=== PATIENT | female | born 1955 | race Caucasian/White ===

== ENCOUNTER 2024-01-05 22:47 | Emergency (ER) | payer MEDICARE, MEDICAID, SELFPAY ==
[2024-01-05 22:57] VITALS: BP 153/97; PULSE 73; TEMP 36.8; O2SAT 95; BMI 31.3
--- NOTE | 2024-01-05 23:29 | XR_ITS ---
The [address] [address] Patient Name: TAYE MARCOS MRN: [id number] date: 1955 Sex: F Assigned Patient Location: ER Current Patient Location: ER Accession/Order Number: [id number] Exam Date: 01/05/2024 23:32 Report Date: 01/05/2024 23:54 At the request of: JAZMIN KEMP Procedure: XR foot RT min 3V EXAM: XR foot RT min 3V HISTORY: The patient is a 68-year-old female, Rt foot pain and swelling COMPARISON: None. FINDINGS: The right foot is radiographically negative with no evidence of fracture, dislocation, joint space narrowing, osteophytes, or other osseous or articular abnormalities. XR/XR foot RT min 3V IMPRESSION: Negative. Electronically authenticated by: SHONNA FONTAINE Date: 01/05/2024 23:54
--- NOTE | 2024-01-05 23:29 | ED_ITS ---
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 Martinez for presents for evaluation of right foot redness warmth and swelling. The patient's daughter states she was just away for 4 days with her boyfriend and when she came home she took her shoes off and she noticed that her mother's foot looked red and swollen. She lives at the bottom of her foot and saw that there is an area where there there appears to be a broken area of skin adjacent to the corn that she has been treated for in the past. She has not had any fever. She has no pain in this extremity but does have neuropathy. She has mild erythema of the foot and toes with no lymphangitic streaking onto the calf. She is on Eliquis. She denies any chest pain or shortness of breath. She was in a hot tub over the weekend which is possibly where she scraped the bottom of her foot. She denies any injury. Related Data Allergies Allergy/AdvReac Type Severity Reaction Status Date / Time Sulfa (Sulfonamide Allergy Mild Vomiting Verified 01/05/24 23:03 Antibiotics) Opioid HPI Opioid Management Most Recent Pain and Opioid Data: No Data to Display Review of Systems ROS Status of ROS 10 or more systems reviewed and unremark able except as noted in history and below PFSH PFSH Social History Little interest or pleasure in doing things: not at all Feeling down, depressed, or hopeless: not at all Exam Narrative Exam Narrative: Vital signs and Nursing Notes reviewed: Patient is afebrile with a normal pulse, blood pressure is elevated at 153/97, she is not hypoxic with pulse ox of 95% on room air General: Awake, alert, oriented, no acute distress, lying comfortably on the stretcher HEENT: Normocephalic atraumatic, mucous membranes are moist and pink, eyes are clear, normal conjunctiva, vision is grossly intact, posterior pharynx is normal in appearance. Neck: Supple, no meningeal signs, no anterior or posterior cervical lymphadenopathy Chest: Lungs are clear to auscultation with good air entry, there is no wheezing rhonchi or rales appreciated no accessory muscle use, patient is speaking in complete sentences-no chest wall tenderness to palpation CVS: Regular rate and rhythm S1-S2, no murmurs rubs or gallops, pulses are brisk and equal bilaterally ABD: Soft, nondistended, nontender, no rebound guarding or rigidity, bowel sounds are normal, no pulsatile masses appreciated Extremities: There is mild erythema and warmth to the right foot. On the plantar aspect of the right foot is a corn at the base of the first metatarsal and adjacent to this is an open area of skin which appears to have been torn with some local ecchymosis. Feet are warm, poorly sensate bilaterally. There is a healed scar on the left first metatarsal. Pulses are brisk and equal bilaterally. There is no lymphangitic streaking. Skin: Normal in appearance without rash,pallor, petechiae or purpura Neuro: No focal deficits Constitutional Vital Signs, click to edit/add: Last Vital Signs Temp 98.3 F 01/05/24 22:57 Pulse 73 01/05/24 22:57 Resp 16 01/05/24 22:57 BP 153/97 H 01/05/24 22:57 Pulse Ox 95 01/05/24 22:57 O2 Del Method Room Air 01/05/24 22:57 Course Vital Signs Vital signs: Vital Signs Temperature 98.3 F 01/05/24 22:57 Pulse Rate 73 01/05/24 22:57 Respiratory Rate 16 01/05/24 22:57 Blood Pressure 153/97 H 01/05/24 22:57 Pulse Oximetry 95 01/05/24 22:57 Oxygen Delivery Method Room Air 01/05/24 22:57 Temperature 98.3 F 01/05/24 22:57 Pulse Rate 73 01/05/24 22:57 Respiratory Rate 16 01/05/24 22:57 Blood Pressure 153/97 H 01/05/24 22:57 Pulse Oximetry 95 01/05/24 22:57 Oxygen Delivery Method Room Air 01/05/24 22:57 MDM - Extremity Injury (Lower) MDM Narrative Medical decision making narrative: This 68-year-old female with a history of diabetic neuropathy and a chronic corn on the base of her right first metatarsal is brought to the emergency department by her daughter for evaluation of redness and swelling in the extremity after the patient was gone for 4 days on a trip with her boyfriend. She has a small area of open skin adjacent to the corn on the base of her right first metatarsal and some mild redness of her foot and toes. The patient denies any complaint of pain due to her neuropathy. She denies any injury. Her pulses are brisk and equal. She does have some mild swelling of the right calf compared to the left. She is on Eliquis. Due to her risk of diabetic foot infection an IV was placed and she was given a dose of IV Unasyn. Routine labs are ordered. She has a normal white count and hemoglobin. Her sed rate is elevated at 41. Lactic acid and CRP are normal. Electrolytes are normal. D-dimer is normal. X-ray of the foot is negative for acute findings. She will be discharged home with a prescription for Augmentin with recommendation for close follow-up with Dr. 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 Medical Records Medical records narrative: The [place] [id number] XRay Report Signed Patient: TAYE MARCOS MR#: [id number] : 1955 Acct:[id number] Age/Sex: 68 / F ADM Date: 01/05/24 Loc: ER Attending Dr: Ordering Physician: Carmelita Mary Date of Service: 01/05/24 Procedure(s): XR foot RT min 3V Accession Number(s): [id number] cc: LINWOOD IRWIN ; Carmelita Mary~ The [address] [address] Patient Name: TAYE MARCOS MRN: [id number] date: 1955 Sex: F Assigned Patient Location: ER Current Patient Location: ER Accession/Order Number: [id number] Exam Date: 01/05/2024 23:32 Report Date: 01/05/2024 23:54 At the request of: CARMELITA MARY Procedure: XR foot RT min 3V EXAM: XR foot RT min 3V HISTORY: The patient is a 68-year-old female, Rt foot pain and swelling COMPARISON: None. FINDINGS: The right foot is radiographically negative with no evidence of fracture, dislocation, joint space narrowing, osteophytes, or other osseous or articular abnormalities. XR/XR foot RT min 3V IMPRESSION: Negative. Electronically authenticated by: SHONNA FONTAINE Date: 01/05/2024 23:54 Lab Data Attestation: I reviewed the patient's lab results. Discharge Plan Discharge Chief Complaint: Extremity Injury, Lower Clinical Impression: Cellulitis of foot Patient Disposition: Home, Self-Care Time of Disposition Decision: 00:22 Condition: Good Print Language: Guyanese Instructions: Cellulitis (ED) Referrals: Cong Martinez DPM [Physician] - 1 week LINWOOD IRWIN [Primary Care Provider] - 1 week
[2024-01-05 23:49] LABS: Basophils Percent Auto 0.5 % (0.2-2.0); Eosinophils Absolute Auto 0.4 10^3/uL (0.0-0.7); Eosinophils Percent Auto 4.7 % (0.9-7.0); Hematocrit 46.3 % (36.0-48.0); Hemoglobin 14.9 g/dL (12.0-16.0); Immature Granulocytes Abs Auto 0.03 10^3/uL (0.00-0.03); Immature Granulocytes Pct Auto 0.4 % (0.0-0.5); Lymphocytes Absolute Auto 2.1 10^3/uL (1.2-3.8); Lymphocytes Percent Auto 24.9 % (20.5-60.0); Mean Corpuscular HGB Conc 32.2 g/dL (29.9-35.2); Mean Corpuscular Volume 99.4 fL (81.0-99.0); Mean Platelet Volume 11.2 fL (9.5-13.5); Monocytes Absolute Auto 0.7 10^3/uL (0.3-0.8); Monocytes Percent Auto 8.5 % (1.7-12.0); Neutrophils Absolute Auto 5.2 10^3/uL (1.4-6.5); Platelet Count 163 10^3/uL (150-450); Red Blood Count 4.66 10^6/uL (4.20-5.40); White Blood Count 8.5 10^3/uL (4.0-11.0)
[2024-01-05 23:53] LABS: Erythrocyte Sedimentation Rate 41 mm/hr (<=30)
[2024-01-05] MEDS: 0.9 % SODIUM CHLORIDE 500 ML IV (23:56)
[2024-01-05] MEDS: AMPICILLIN SODIUM/SULBACTAM NA 3 GM in 0.9 % SODIUM CHLORIDE 100 ML IV (23:56)
[2024-01-06 00:03] LABS: D Dimer 0.31 mg/L FEU (<=0.59)
[2024-01-06 00:04] LABS: Alanine Aminotransferase 32 U/L (14-59); Albumin Globulin Ratio 0.9; Albumin Level 3.3 g/dL (3.4-5.0); Alkaline Phosphatase 82 U/L (46-116); Anion Gap 9.2; Aspartate Amino Transferase 30 U/L (15-37); BUN Creatinine Ratio 11.3; Bilirubin Total 0.2 mg/dL (0.2-1.0); C Reactive Protein <0.50 mg/dL (<=0.50); Calcium 9.7 mg/dL (8.5-10.1); Carbon Dioxide 27.7 mmol/L (21.0-32.0); Chloride 104 mmol/L (98-107); Estimated GFR (African America >60 (>=60); Estimated GFR (Non-African Ame 57 (>=60); Globulin 3.7 g/dL; Glucose 162 mg/dL (74-106); Potassium 3.9 mmol/L (3.5-5.1); Sodium 137 mmol/L (136-145)
[2024-01-06 00:07] LABS: Lactate/Lactic Acid 1.9 mmol/L (0.4-2.0)
[2024-01-06 00:30] VITALS: BP 143/87; PULSE 57; O2SAT 97
== END 2024-01-06 00:30 | disposition home or self-care (01) ==
PROVIDERS: Emergency Provider Emergency Medicine; Family Provider Family Medicine; PCP Specialist
DX: L03.115 Cellulitis of right lower limb (principal); E11.40 Type 2 diabetes mellitus with diabetic neuropathy, unspecified; Z79.01 Long term (current) use of anticoagulants
CPT/HCPCS: 36415; 73630; 80053; 83605; 85025; 85378; 85652; 86140; 96365; 99284; J0295

== ENCOUNTER 2024-02-07 12:51 | Outpatient (REF) | payer MEDICARE, MEDICAID, SELFPAY ==
--- OUTSIDE RECORDS SUMMARY | 2024-02-07 13:04 | XMS_ITS | CCD ---
Author Organization [facility] Care Team Providers Care Supervisor Cook Room Name Role Phone MATTHEW VOSS MD Unavailable Unavailable UNASSIGNED, DOCTOR Unavailable Unavailable SUKHWINDER, ELOISA Unavailable Unavailable SUKHWINDER, ELOISA Unavailable Unavailable SUKHWINDER, ELOISA Unavailable Unavailable DARRELL YODER Unavailable Unavailab Tray Stockton Unavailable [phone] Angelique Russell Unavailable Crispin Looney Unavailable Ruben Hahn Unavailable DO Tray Randle Emergency Provider Unavai MD Shira Ralph Admit Provider DO Walter Montgomery Other Provider MD Teresa Strong Other Provider MD Wilmer Vance Attending Provider DO Darrell Yoder Primary Care Provider NO FAMILY, PHYSICIAN Primary Care Provider Unava ilable DO Rl Villavicencio Emergency Provider Francesca Santos Attending Unavailable SHIRA STEPHEN Referring Unavailable Teresa Strong Attending Unavailable SHIRA STEPHEN Referring Unavailable Teresa Strong Attending Unavailable Teresa Strong Attending Unavailable Sandra Keita Unavailable Tolu Salinas Unavailable DO Sandra Keita Primary Care Provider [phone] DO Sandra Keita Attending Provider Reyna Dallas Unavailable Brayden Noble Unavailable DO Darrell Yoder Primary Care Provider NITZA Russell Attending Provider Keita, Sandra A Primary Care Provider Keita, DO Sandra A Attending Provider Keita, DO Sandra A Primary Care Provider Keita, DO Sandra A Attending Provider NITZA Russell Attending Provider DO Haider Valenzuela Emergency Provider MD Elva Florian Admit Provider MD Elva Florian Attending Provider BRENDA Paz Marli Other Provider Unavailable DO Elly Yoo Other Provider MD Ric Hutchison Other Provider MD Darrell Ch Other Provider MD Thuan Wise Other Provider MD Manjit Barbosa Other Provider NITZA Fritz Other Provider MD Stephanie Stoll Other Provider MD Jann Kaplan Naaretha Other Provider MD Cara Tenorio Other Provider Fidel [facility]- Elizabeth Samayoa Other Provider MD Ashley Cheatham Other Provider Debbie BONNER, Sandra A Primary Care Provider DO Debbie Sandra A Primary Care Provider MD Oz Kincaid Attending Provider MD Darrell Ch Attending Provider DO Rl Villavicencio Emergency Provider DO Jluis Campos Admit Provider [phone] DO Jluis Campos Attending Provider Saranya Wright Other Provider Unavailable Fay, PhD Cash Other Provider DO Jelly Tuttle Other Provider MD John Murillo Other Provider DO Lit Clark Other Provider Dar, [facility] Dayana Other Provider DO Roque Isidro Other Provider NITZA Calvo Other Provider CHERYL Medina Other Provider Patrice NURSING CONSULTANT-[employer] LOCOMOT[employer] CRANE-C Jeanine E Other Provider MD Chaka Frye Attending Provider [phone] DO Rl Villavicencio Emergency Provider [phone] DO Jluis Campos Admit Provider Saranya Wright Other Provider Unavailable Fay, PhD Cash Other Provider DO Jelly Tuttle Other Provider MD John Murillo Other Provider DO Lit Clark Other Provider Dar [facility] Dayana Other Provider DO Roque Isidro Other Provider NITZA Calvo Other Provider CHERYL Medina Other Provider [phone] Patrice 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 Jeanine E Other Provider MD Chaka Frye Attending Provider NITZA Salinas Referring Provider [phone] Keita, DO Sandra A Primary Care Provider [phone] MD Darrell Ch Referring Provider MD Thuan Wise Attending Provider BARRIE Fritz Attending Provider KEITA, SANDRA A Primary Care Unavailable DARRELL CH Attending Unavailable KEITA, SANDRA A Primary Care Unavailable DARRELL CH Attending Unavailable KEITA, SANDRA A Primary Care Unavailable DARRELL CH Referring Unavailable THUAN WISE Referring Unavailable KEITA, SANDRA A Primary Care Unavailable THUAN WISE Attending Unavailable KEITA, SANDRA A Primary Care Unavailable THUAN WISE Referring Unavailable Keita, Sandra A Primary Care Unavailable Mapus Tondra K Admitting Unavailable Mapus Tondra K Attending Unavailable Keita, Sandra A Primary Care Unavailable Oz Kincaid Attending Unavailable Oz Kincaid Admitting Unavailable Keita, Sandra A Primary Care Unavailable Thuan Wise Attending Unavailable Thuan Wise Admitting Unavailable Karl Fritz Attending Unavailable Karl Fritz Admitting Unavailable Keita, Sandra A Primary Care Unavailable Keita, Sandra A Attending Unavailable Debbie, Sandra A Admitting Unavailable Darrell Ch Attending Unavail able Darrell Ch Admitting Unavail able Keita, Sandra A Primary Care Unavailable Keita, Sandra A Primary Care Unavailable Keita, Sandra A Attending Unavailable Keita, Sandra A Admitting Unavailable Elva Florian Attending Unavailable Elva Florian Admitting Unavailable Marli Paz Consulting Unavailable Keita, Sandra A Primary Care Unavailable Elly Yoo Consulting Unavailable Ric Hutchison Consulting Unavailable Darrell Ch Consulting Unavail able Thuan Wise Consulting Unavailable Manjit Barbosa Consulting Unavailab Naida Pulliam Consulting Unavailable Stephanie Stoll Consulting Unavailable Jann Kaplan Consulting Unavailab Cara Spencer Consulting Unavailable Elizabeth Parra Consulting Unavailable Ashley Cheatham Consulting Unavailable Jluis Campos Admitting Unavailable Keita, Sandra A Primary Care Unavailable Chaka Frye Attending Unavailab Saranya Thomas Consulting Unavailable Cash Aponte Consulting Unavailable Jelly Tuttle Consulting Unavailable John Murillo Consulting Unavailable Lit Clark Consulting Unavailab Dayana Macias Consulting Unavailable Roque Isidro Consulting Unavailable Tracy Calvo Consulting Unavailable Tayler Medina Consulting Unavailable Jeanine Ibrahim Consulting Unavailable Keita, Sandra A Primary Care Unavailable MapBarber cháveza Estephania Attending Unavailable Angelique Russell Admitting Unavailable Bej, Oz Snyder Admitting Unavailable Bej, Oz Snyder Attending Unavailable Keita, Sandra A Primary Care Unavailable Darrell Ch Attending Unavail able Darrell Ch Referring Unavail able Darrell Ch Admitting Unavail able Keita, Sandra A Primary Care Unavailable Keita, Sandra A Primary Care Unavailable Oz Kincaid Admitting Unavailable BeOz gutierrez Attending Unavailable Keita, Sandra A Primary Care Unavailable Tolu Salinas Referring Unavailable BejOz Attending Unavailable BeOz gutierrez Admitting Unavailable BEJ, OZ Snyder Attending Unavailable JALYN ARMENDARIZ Attending Unavailable BEJOZ Referring Unavailable BEJ, OZ Snyder Attending Unavailable BEJ, OZ Snyder Referring Unavailable BEJ, OZ Snyder Attending Unavailable BEJOZ Attending Unavailable BEJOZ Referring Unavailable BEJOZ Attending Unavailable BEJOZ Referring Unavailable KARL FRITZ Attending Unavailable BEOZ Gutierrez Attending Unavailable KARL FRITZ Attending Unavailable KARL FRITZ Attending Unavailable Keita DO, Sandra Primary Care Provider [phone] Allergies Allergy Classification Reported Allergen(s) Allergy Type Date of Onset Reaction(s) Facility (20 sources) Sulfamethoxazole ; 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: [sulfamethoxazol e] Drug Allergy 3 Unknown [facility] Repository (11 sources) Sulfonamides (Antibiotic); 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: [SULFA (SULFONAMIDE ANTIBIOTICS)] Allergy to substance 9 GI intolerance, Unknown, Nausea/vomiting [facility] (2 sources) Sulfonamides (Antibiotic) Drug Allergy 9 GI intolerance, Unknown [facility] Medications Current Medications Medication Drug Class(es) Dates Sig (Normalized) Sig (Original) 3 ML semaglutide 1.34 MG/ML Pen Injector [Ozempic] (20 sources) Start: 03-27-2021 inject 0.5 mg by subcutaneous injection every week Ozempic (1 MG/DOSE) 4 MG/3ML 1mg Subcutaneous once weekly for 28 days Stop ozempic 0.5mg dose Feb, Active inject 1 mg by subcu taneous injection every week Ozempic (1 MG/DOSE) 4 MG/3ML 1mg Subcutaneous once weekly for 28 days Active amiodarone hydrochloride 200 mg oral tablet (13 sources) Antiarrhythmic Start: 10-07-2023 End: 10-06-2024 take 200 mg by mouth twice daily Amiodarone Active 200 MG PO Twice daily November 04, 2023 12:00am amoxicillin 875 mg / clavulanate 125 mg oral tablet (1 source) Penicillin-class Antibacterial Start: 01-15-2024 Amoxicillin-Pot Clavulanate Active TAB PO January 15, 2024 12:00am apixaban 5 mg oral tablet (20 sources) Factor Xa Inhibitor Start: 09-14-2023 End: 12-03-2023 take 1 tablet by mouth twice daily Apixaban (Eliquis) 5 mg tablet Active 5 MG PO Twice daily 180 December 03, 2023 1:05pm aspirin 81 mg delayed release oral tablet (20 sources) Platelet Aggregation Inhibitor, Nonsteroidal Anti-inflammatory Drug Start: 02-09-2021 take 81 mg by mouth once daily Aspirin Active 81 MG PO Daily February 09, 2021 12:00am take 1 tablet by mouth once jonah y Aspir-Low 81 MG 1 tablet Orally Once a day Active 24 hr buPROPion hydrochloride 300 mg extended release oral tablet (4 sources) Aminoketone Start: 08-07-2021 take 1 tablet by mouth every twenty-four hours buPROPion HCl ER (XL) 300 MG 1 tablet in the morning Orally Once a day for 90 day(s) Jul, Active buPROPion HCl ER (XL) 150 MG take 1 tablet by mouth every morning for 3 days for 3 DCed Active Continuous Blood Gluc Sensor (FreeStyle Lida 14 Day Sensor) misc (2 sources) Start: 12-21-2022 Continuous Blo od Gluc Sensor (FreeStyle Lida 14 Day Sensor) [facility] [place] apply 1 SENSOR as directed every 14 days use with DEVICE to MONIT... (REFER TO PRESCRIPTION NOTES). 12/21/2022 Active cyclobenzaprine (3 sources) Muscle Relaxant Start: 01-15-2024 Cyclobenzaprin e Active MG PO January 15, 2024 12:00am Start: 01-07-2024 cyclobenzaprin e (Flexeril) 10 MG tablet Indications: Cervical paraspinal muscle spasm , Lumbar paraspinal muscle spasm 1-2 tabs QHS 60 tablet 3 01/07/2024 Active docusate sodium 100 mg oral capsule (20 sources) Start: 06-12-2023 take 1 capsule by mouth once daily Docusate Sodium (Stool Softener) 100 mg capsule Active 100 MG PO Daily June 12, 2023 4:41pm Start: 02-09-2021 End: 06-12-2023 take 1 capsule by mouth three times daily Docusate Sodium (Stool Softener) 100 mg capsule Discontinued 100 MG PO Three times daily June 12, 2023 9:08am June 12, 2023 4:43pm take 1 capsule by mo [facility] twice daily docusate sodium (Colace) 100 mg capsule Take 1 capsule (100 mg) by mouth 2 times a day. Active Stool Softener 1 00 MG 3 tablet as needed in the morning and 1 tablet in the evening Orally bid PRN Active Easy Touch Lancing Device - (4 sources) Easy Touch Lanci ng Device - as directed Active empagliflozin 25 mg oral tablet (20 sources) Sodium-Glucose Cotransporter 2 Inhibitor Start: 02-10-20 take 1 tablet by mouth once daily Empagliflozin (Jardiance) 25 mg Tablet Active 25 MG PO Daily February 09, 2021 12:00am Flash Glucose Sensor (Freestyle Lida 14 Day Sensor) kit (18 sources) Start: 01-10-20 Flash Glucose Sensor (Freestyle Lida 14 Day Sensor) kit Active 0 .ROUTE .MEDSUPPLY January 10, 2024 12:00am As directed Change every 14 days Start: 07-22-2023 Flash Glucose Sensor (Freestyle Lida 14 Day Sensor) kit Active 0 .ROUTE .MEDSUPPLY July 22, 2023 12:00am As directed Change every 14 days folic acid 1 mg oral tablet (20 sources) Start: 02-09-2021 End: 10-16-2023 take 1 tablet by mouth once daily folic acid (Folvite) 1 MG tablet Take 1,000 mcg by mouth Daily 10/16/2023 Active FreeStyle Lida 14 Day Sensor - (20 sources) FreeStyle Lida 14 Day Sensor - apply 1 SENSOR as directed every 14 days use with DEVICE to MONITOR BLOOD SUGAR Sub Q Change every 14 days for 28 days Active FreeStyle Lida 14 Day Sensor - apply 1 SENSOR as directed every 14 days use with DEVICE to MONITOR BLOOD SUGAR before meals at bedtime and if needed SQ 28 days for 28 Active FreeStyle Lida 14 Day Sensor - apply 1 SENSOR as directed every 14 days use with DEVICE to MONITOR BLOOD SUGAR before meals at bedtime and if needed SQ as directed for 28 days Active FreeStyle Lida 14 Day Sensor - apply 1 SENSOR as directed every 14 days use with DEVICE to MONITOR BLOOD SUGAR before meals at bedtime and if needed for 28 Active FreeStyle Lida Sensor (20 sources) FreeStyle Lida Sensor use with lida reader SQ change q 14 days, check glucose ac, hs and prn for 84 days Active FreeStyle Lida Sensor use with lida reader SQ change q 14 days, check glucose ac, hs and prn Active 1.5 ml insulin glargine 300 unt/ml pen injector (20 sources) Insulin Analog Start: 06-12-2023 End: 11-14-2023 inject 20 [IU] by subcutaneous injection once daily Insulin Glargine U-300 Conc (Toujeo Solostar U-300 Insulin) 300 unit/mL (1.5 mL) insulin pen Active 20 UNIT SUBCUT Daily November 14, 2023 4:09pm Start: 12-12-2022 Toujeo SoloSta r 300 UNIT/ML injection inject 20 units subcutaneously as directed 12/12/2022 Active Start: 10-10-2022 End: 06-12-2023 Insulin Glargine U-300 Conc (Toujeo Solostar U-300 Insulin) 300 unit/mL (1.5 mL) insulin pen Discontinued UNIT SUBCUT October 10, 2022 12:00am June 12, 2023 9:13am Start: 01-09-2022 inject 20 [IU] by razo bcutaneous injection once daily [place] SoloStar 300 UNIT/ML 20 units once daily Subcutaneous as directed for 90 days (titrate up to 30 units/day) Dec, Active Insulin Lispro (20 sources) Insulin Analog Start: 12-23-2023 Insulin Lispro Active 0 SUBCUT Before meals and at bedtime December 23, 2023 4:11pm subcutaneously before meals and at bedtime; 1:50 corrective scale (expect up to 20 units/day) Start: 06-12-2023 End: 12-23-2023 Insulin Lispro Discontinued 0 SUBCUT Before meals and at bedtime June 12, 2023 9:05am December 23, 2023 4:14pm subcutaneously before meals and at bedtime; 1:50 corrective scale (expect up to 20 units/day) Start: 06-12-2023 Insulin Lispro Active 0 SUBCUT Before meals and at bedtime June 12, 2023 9:05am subcutaneously before meals and at bedtime; 1:50 corrective scale (expect up to 20 units/day) Start: 06-12-2023 Insulin Lispro Active 0 SUBCUT Before meals and at bedtime June 12, 2023 8:05am subcutaneously before meals and at bedtime; 1:50 corrective scale (expect up to 20 units/day) Start: 10-10-2022 End: 06-12-2023 inject 1 dose by subcutaneous injection at bedtime Insulin Lispro Discontinued sliding scale dose SUBCUT Before meals and at bedtime October 10, 2022 12:00am June 12, 2023 9:13am Start: 10-10-2022 End: 06-12-2023 inject 1 dose by subcutaneous injection at bedtime Insulin Lispro Discontinued sliding scale dose SUBCUT Before meals and at bedtime October 09, 2022 11:00pm June 12, 2023 8:13am Start: 10-10-2022 inject 1 dose by sub cutaneous injection at bedtime Insulin Lispro Active sliding scale dose SUBCUT Before meals and at bedtime October 09, 2022 11:00pm Start: 02-09-2021 Insulin Lispro (Admelog Solostar U-100 Insulin) 100 unit/mL Insulin Pen Active 1 sliding scale dose SUBCUT Use as Directed February 09, 2021 12:00am HumaLOG KwikPen 100 UNIT/ML 1:50 corrective scale Subcutaneous ac tid Not-Taking lisinopril 5 mg oral tablet (20 sources) Angiotensin Converting Enzyme Inhibitor Start: 11-18-2023 take 5 mg by mouth once daily Lisinopril Active 5 MG PO Daily November 18, 2023 12:00am Start: 09-09-2023 End: 11-05-2023 take 1 tablet by mouth once daily Lisinopril Discontinued 0 .ROUTE .COMPLEX 90 September 09, 2023 9:36am November 05, 2023 12:26pm take 1 tablet by mouth once daily Start: 09-09-2023 End: 09-09-2023 take 5 mg by mouth once daily Lisinopril Discontinued 5 MG PO Daily September 09, 2023 12:00am September 09, 2023 9:36am Start: 06-12-2023 End: 06-12-2023 take 2.5 mg by mouth once daily Lisinopril Discontinue d 2.5 MG PO Daily June 12, 2023 9:09am June 12, 2023 4:42pm Start: 06-12-2023 End: 06-19-2023 take 2.5 mg by mouth once daily Lisinopril Discontinue d 2.5 MG PO Daily June 12, 2023 1:00am June 19, 2023 6:17pm Start: 02-09-2021 End: 06-12-2023 take 5 mg by mouth once daily Lisinopril Discontinued 5 MG PO Daily February 09, 2021 12:00am June 12, 2023 9:13am Start: 02-09-2021 take 10 mg by mouth once daily Lisinopril Active 10 MG PO Daily February 09, 2021 12:00am take 1 tablet by umer th every twenty-four hours Lisinopril 5 MG 1 tablet Orally Once a day for 90 days Active take 1 tablet by umer th every twenty-four hours Lisinopril 40 MG 1 tablet Orally Once a day Active magnesium oxide 400 mg oral tablet (20 sources) Start: 01-02-2024 take 1 tablet by mouth in the morning magnesium oxide (Mag-Ox) 400 (240 Mg) MG tablet Take 400 mg by mouth in the morning and 400 mg before bedtime. 01/02/2024 Active Start: 11-18-2023 End: 12-03-2023 take 1 tablet by mouth twice daily Magnesium Oxide (Magox) 400 mg (241.3 mg magnesium) tablet Active 400 MG PO Twice daily December 03, 2023 1:06pm Start: 09-14-2023 End: 11-18-2023 take 1 tablet by mouth once daily Magnesium Oxide (Magox) 400 mg (241.3 mg magnesium) tablet Discontinued 400 MG PO Daily September 14, 2023 12:00am November 18, 2023 2:05pm metFORMIN hydrochloride 500 mg oral tablet (20 sources) Biguanide Start: 08-26-2023 take 1 tablet by mouth twice daily at mealtime Metformin Active 0 .ROUTE .COMPLEX 180 August 26, 2023 10:13am take 1 tablet by mouth twice a day with meals Start: 02-09-2021 End: 08-26-2023 metFORMIN (Glucophage) 500 M G tablet Take 500 mg by mouth 08/26/2023 Active 24 hr metoprolol succinate 50 mg extended release oral tablet (20 sources) beta-Adrenergic Debbie Start: 11-04-2023 take 50 mg by mouth three times daily Metoprolol Succinate Active 50 MG PO Three times daily November 04, 2023 12:00am Start: 09-14-2023 End: 10-23-2024 take 1 tablet by mouth every twenty-four hours in the morning metoprolol succinate XL (Toprol-XL) 50 MG 24 hr tablet Take 50 mg by mouth in the morning and 50 mg in the evening. 09/14/2023 10/23/2024 Active Start: 09-14-2023 End: 11-04-2023 take 50 mg by mouth once daily Metoprolol Succinate Di scontinued 50 MG PO Daily September 14, 2023 12:00am November 04, 2023 1:04pm Miscellaneous Medical Supply (20 sources) Start: 11-26-2023 Miscellaneous Medical Supply Active 0 .Route 1 November 26, 2023 2:24pm Hospital Bed Start: 11-26-2023 End: 11-26-2023 Miscellaneous Medical Supply Discontinued 0 .Route 1 November 26, 2023 2:22pm November 26, 2023 2:25pm As directed Start: 2023 End: 11-26-2023 Miscellaneous Medical Supply Discontinued 0 .Route 1 2023 2:20pm November 26, 2023 2:23pm As directed Start: 09-30-2023 End: 2023 Miscellaneous Medical Supply Discontinued 0 .Route 1 September 30, 2023 8:33am 2023 2:21pm As directed Start: 09-30-2023 Miscellaneous Medical Supply Active 0 .Route 1 September 30, 2023 8:33am As directed Start: 09-17-2023 End: 09-30-2023 Miscellaneous Medical Supply Discontinued 0 .Route 1 September 17, 2023 12:00am September 30, 2023 8:33am As directed Start: 09-17-2023 Miscellaneous Medical Supply Active 0 .Route 1 September 17, 2023 12:00am As directed Multivitamin preparation (20 sources) Start: 06-12-2023 take 1 tablet by mouth once daily Multivitamin Active 1 TAB PO Daily June 12, 2023 9:10am Start: 06-12-2023 take 1 tablet by umer th once daily Multivitamin Active 1 TAB PO Daily June 12, 2023 8:10am Start: 02-09-2021 End: 06-12-2023 take 1 tablet by mouth twice daily Multivitamin Discontinued 1 TAB PO Twice daily February 09, 2021 12:00am June 12, 2023 9:13am Start: 02-09-2021 End: 06-12-2023 take 1 tablet by mouth twice daily Multivitamin Discontinued 1 TAB PO Twice daily February 08, 2021 11:00pm June 12, 2023 8:13am Start: 02-09-2021 take 1 tablet by umer th twice daily Multivitamin Active 1 TAB PO Twice daily February 08, 2021 11:00pm Start: 02-09-2021 take 1 tablet by umer th twice daily Multivitamin Active 1 TAB PO Twice daily February 09, 2021 12:00am take 1 tablet by umer th once daily Multivitamin - 1 tablet Orally Once a day Active nortriptyline 50 mg oral capsule (20 sources) Tricyclic Antidepressant Start: 06-18-2023 End: 11-18-2023 take 100 mg by mouth once daily Nortriptyline Discontinued 100 MG PO Daily 180 90 October 16, 2023 7:37am November 18, 2023 2:05pm Start: 01-04-2023 take 50 mg by mouth once daily Nortriptyline Active 50 MG PO Daily 90 November 18, 2023 2:01pm Start: 01-04-2023 take 2 capsules by m outh once daily at bedtime nortriptyline (Pamelor) 50 mg capsule Take 2 capsules (100 mg) by mouth once daily at bedtime. 01/04/2023 Active Start: 02-09-2021 End: 06-18-2023 take 50 mg by mouth twice daily Nortriptyline Disconti nued 50 MG PO Twice daily June 12, 2023 9:07am June 18, 2023 8:10pm take 1 capsule by [facility] every twenty-four hours Nortriptyline HCl 50 MG 1 capsules Orally Once a day Active omeprazole 20 mg delayed release oral capsule (20 sources) Proton Pump Inhibitor Start: 07-01-2023 End: 01-06-2024 take 1 capsule by mouth once daily Omeprazole Active 0 .ROUTE .COMPLEX January 06, 2024 12:36pm take 1 capsule by mouth once daily Start: 01-02-2023 omeprazole (Pr iLOSEC) [address] capsule 01/02/2023 Active Start: 02-09-2021 End: 07-01-2023 take 20 mg by mouth once daily Omeprazole Discontinued 20 MG PO Daily February 09, 2021 12:00am July 01, 2023 9:09am One Touch Ultra Mini Glucometer 1 meter (4 sources) One Touch Ultra Mini Glucometer 1 meter as directed E11,9 as directed Active ozempic (1 mg/dose) 4 mg/3ml solution pen-injector (5 sources) inject 1 mg by subcutaneous injection every week Ozempic (1 MG/DOSE) 4 MG/3ML 1mg Subcutaneous once weekly for 28 days Active Ozempic, 1 MG/DOSE, 4 MG/3ML solution pen-injector (2 sources) Start: 12-10-2022 inject 1 mg by subcutaneous injection every week Ozempic, 1 MG/DOSE, 4 MG/3ML solution pen-injector Administer 1mg subcutaneously once weekly 12/10/2022 Active pen needle, diabetic (Sure-Fine Pen [place]) (20 sources) Start: 06-12-2023 pen needle, diabetic (Sure-Fine Pen [place]) Active .Route June 12, 2023 1:00am Start: 06-12-2023 pen needle, di abetic (Sure-Fine Pen [place]) Active .Route June 12, 2023 12:00am Start: 06-12-2023 pen needle, di abetic (Sure-Fine Pen [place]) Active .ROUTE June 12, 2023 12:00am pioglitazone 15 mg oral tablet (20 sources) Peroxisome Proliferator Receptor alpha Agonist, Peroxisome Proliferator Receptor gamma Agonist, Thiazolidinedione Start: 02-09-2021 take 15 mg by mouth once daily Pioglitazone Active 15 MG PO Daily February 09, 2021 12:00am pregabalin (10 sources) Start: 01-15-2024 Pregabalin Active MG PO January 15, 2024 12:00am Start: 01-07-2024 take 1 capsule by [facility] twice daily pregabalin (Lyrica) 300 MG capsule Indications: Neurogenic pain TAKE 1 CAPSULE BY MOUTH TWICE A DAY 60 capsule 3 01/07/2024 Active Start: 11-18-2023 End: 01-15-2024 take 1 capsule by mouth twice daily Pregabalin (Lyrica) 150 mg capsule Discontinued 150 MG PO Twice daily November 18, 2023 12:00am January 15, 2024 3:40pm 0.25 mg, 0.5 mg dose 1.5 ml semaglutide 1.34 mg/ml pen injector (20 sources) Start: 02-09-2021 Semaglutide (O zempic) 0.25 mg or 0.5 mg(2 mg/1.5 mL) Pen Injector Active 1 MG SUBCUT every week February 09, 2021 12:00am Saturday Start: 02-09-2021 Semaglutide (O zempic) 0.25 mg or 0.5 mg(2 mg/1.5 mL) Pen Injector Active 0.5 MG SUBCUT every week February 09, 2021 12:00am Saturday Ozempic (0.25 or 0.5 MG/DOSE) 2 MG/1.5ML inject 0.5 milligrams subcutaneously every week for 84 Active semaglutide (Ozempic) 1 mg/dose (4 mg/3 mL) pen injector (1 source) Start: 12-10-2022 inject 1 mg by subcutaneous injection every week semaglutide (Ozempic) 1 mg/dose (4 mg/3 mL) pen injector Administer 1mg subcutaneously once weekly 12/10/2022 Active simvastatin 20 mg oral tablet (20 sources) HMG-CoA Reductase Inhibitor Start: 02-09-2021 End: 10-06-2024 take 1 tablet by mouth at bedtime simvastatin (Zocor) 20 MG tablet Take 20 mg by mouth at bedtime. 12/04/2022 Active temazepam 30 mg oral capsule (20 sources) Benzodiazepine Start: 10-10-2022 End: 01-15-2024 take 1 capsule by mouth at bedtime temazepam (Restoril) 30 MG capsule take 1 capsule by mouth at bedtime if needed 12/28/2022 Active Start: 08-09-2022 take 1 capsule by mo ut every twenty-four hours Temazepam 30 MG 1 capsule at bedtime as needed Orally Once a day for 30 days Jul, Active Start: 07-04-2022 take 1 capsule by mo uth every twenty-four hours Temazepam 30 MG 1 capsule at bedtime as needed Orally Once a day for 30 days Jun, Active Start: 06-04-2022 take 1 capsule by mo uth every twenty-four hours Temazepam 30 MG 1 capsule at bedtime as needed Orally Once a day for 30 days May, Active Start: 06-28-2021 take 1 capsule by mo uth every twenty-four hours Temazepam 15 MG 1 capsule at bedtime as needed Orally Once a day for 30 days Jun, Active Start: 05-08-2021 take 1 capsule by mo uth every twenty-four hours Temazepam 22.5 MG 1 capsule at bedtime as needed Orally Once a day for 30 days Apr, Active Start: 02-09-2021 End: 12-17-2021 take 30 mg by mouth once daily at bedtime Temazepam Discontinued 30 MG PO Daily at bedtime February 09, 2021 12:00am December 17, 2021 6:00am take 1 capsule by mo uth every twenty-four hours Temazepam 15 MG 1 capsule at bedtime as needed Orally Once a day Active varenicline 1 mg oral tablet (20 sources) Partial Cholinergic Nicotinic Agonist Start: 11-28-2022 take 1 tablet by mouth twice daily Varenicline Tartrate 1 MG 1 tablet after eating with a full glass of water Orally Twice a day for 30 days To fill after completing starter pack Nov, Active Start: 11-28-2022 Varenicline Ta rtrate (Starter) 0.5 MG X 11 & 1 MG X 42 as directed Orally as directed for 30 days Nov, Active Start: 04-16-2022 take 1 mg by mouth twice daily Varenicline Tartrate 1 MG as directed Orally Twice a day for 30 day(s) To start after completing starter pack Mar, Active Start: 10-12-2021 Varenicline Ta rtrate 0.5 MG 1 tablet with food and water daily days 1-3 then increase to twice daily on days 4-7 Orally Once a day for 7 day(s) Sep, Not-Taking Start: 10-12-2021 take 1 tablet by umer twice daily Varenicline Tartrate 1 MG 1 tablet after eating with a full glass of water Orally Twice a day for 30 days Sep, Not-Taking vitamin b12 2.5 mg oral tablet (20 sources) Vitamin B12 Start: 11-14-2023 cyanocobalamin (Vitamin B-12) 2500 MCG tablet 11/14/2023 Active Start: 11-14-2023 take 1000 ug by mout h once daily Cyanocobalamin (Vitamin B-12) Active 1000 MCG PO Daily November 14, 2023 12:00am Start: 02-09-2021 End: 12-17-2021 take 1 tablet by mouth once daily Cyanocobalamin (Vitamin B-12) (Vitamin B-12) 1,000 mcg Tablet Discontinued 1000 MCG PO Daily February 09, 2021 12:00am December 17, 2021 5:58am RA Vitamin B-12 Not-Taking RA Vitamin B-12 Active Completed/Discontinued Medications Medication Drug Class(es) Dates Sig (Normalized) Sig (Original) acetaminophen 325 mg oral tablet (20 sources) Start: 12-13-2021 End: 12-17-2021 take 650 mg by mouth every six hours Acetaminophen Discontinued 650 MG PO Every 6 hours December 13, 2021 12:00am December 17, 2021 5:59am Admelog (9 sources) Admelog Not-Taki ng Admelog Active cefuroxime 500 mg oral tablet (20 sources) Cephalosporin Antibacterial Start: 12-13-2021 End: 10-10-2022 take 500 mg by mouth twice daily Cefuroxime Axetil Discontinued 500 MG PO Twice daily 6 December 13, 2021 12:00am October 10, 2022 12:16pm Start: 12-13-2021 take 500 mg by mouth twice daily Cefuroxime Axetil Active 500 MG PO Twice daily 6 December 13, 2021 12:00am Start: 12-13-2021 take 500 mg by mouth twice daily Cefuroxime Axetil Active 500 MG PO Twice daily 6 December 13, 2021 12:00am dapagliflozin 10 mg oral tablet (4 sources) Sodium-Glucose Cotransporter 2 Inhibitor Start: 05-26-2020 take 1 tablet by mouth every twenty-four hours Farxiga 10 MG 1 tablet Orally Once a day for 30 day(s) Apr, Not-Taking flash glucose sensor (FreeStyle Lida 14 Day Sensor) (20 sources) Start: 06-12-2023 End: 11-09-2023 flash glucose sensor (FreeStyle Lida 14 Day Sensor) Discontinued .Route June 12, 2023 1:00am November 09, 2023 10:09pm Start: 06-12-2023 End: 07-22-2023 flash glucose sensor (FreeSt yle Lida 14 Day Sensor) Discontinued .Route June 12, 2023 1:00am July 22, 2023 7:32am Start: 06-12-2023 flash glucose sensor (FreeStyle Lida 14 Day Sensor) Active .Route June 12, 2023 1:00am Start: 06-12-2023 flash glucose sensor (FreeStyle Lida 14 Day Sensor) Active .Route June 12, 2023 12:00am Start: 06-12-2023 flash glucose sensor (FreeStyle Lida 14 Day Sensor) Active .ROUTE June 12, 2023 12:00am Handicap placards as directe d (13 sources) Start: 11-28-2022 Handicap placa rds as directed as directed as directed as directed To 5 years after issue date Nov, Active Insulin Lispro (Admelog Solostar U-100 Insulin) 100 unit/mL Insulin Pen (20 sources) Start: 02-09-2021 End: 10-10-2022 Insulin Lispro (Admelog Solo star U-100 Insulin) 100 unit/mL Insulin Pen Discontinued 1 sliding scale dose SUBCUT Use as Directed February 09, 2021 12:00am October 10, 2022 12:17pm Start: 02-09-2021 End: 10-10-2022 Insulin Lispro (Admelog Solo star U-100 Insulin) 100 unit/mL Insulin Pen Discontinued 1 sliding scale dose SUBCUT Use as Directed February 08, 2021 11:00pm October 10, 2022 11:17am loratadine 10 mg oral tablet (20 sources) Start: 02-09-2021 End: 10-10-2022 take 10 mg by mouth once daily Loratadine Discontinued 10 MG PO Daily February 09, 2021 12:00am October 10, 2022 12:16pm Loratadine PRN A ctive Loratadine prn A ctive Loratadine Activ e metoclopramide 10 mg oral tablet (20 sources) Dopamine-2 Receptor Antagonist Start: 06-12-2023 End: 06-19-2023 take 10 mg by mouth once daily at bedtime Metoclopramide Hcl Discontinued 10 MG PO Daily at bedtime June 12, 2023 1:00am June 19, 2023 6:17pm Start: 02-09-2021 End: 10-10-2022 take 10 mg by mouth once daily Metoclopramide Hcl Disc ontinued 10 MG PO Daily February 09, 2021 12:00am October 10, 2022 12:15pm take 1 tablet by umer th at bedtime Metoclopramide HCl 10 MG 1 tablet Orally at bedtime Active Vitamin B12 1000 MCG (4 sources) Start: 07-10-2018 take 1 tablet by mouth once daily Vitamin B12 1000 MCG 1 tablet Orally Once a day for 90 days Jun, Not-Taking Start: 07-10-2018 take 1 tablet by mouth once da anne Vitamin B12 1000 MCG 1 tablet Orally Once a day for 90 days Jun, Active Problems Active Problems Problem Classification Problem Date Documented Da te Episodic/Chronic Abdominal pain (20 sources) Abdominal pain; 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: [Unspecified abdominal pain] 12-17-2021 Episodic Administrative/social admission (20 sources) Dietary counseling and surveillance; 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: [Tobacco abuse counseling] Onset: 03-27-2021 Resolved: 01-09-2022 Episodic Biliary tract disease (20 sources) Biliary calculus; 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: [Calculus of gallbladder without cholecystitis without obstruction] 12-11-2021 Episodic Cardiac dysrhythmias (20 sources) Atrial flutter; 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: [Unspecified atrial flutter] Onset: 09-13-2023 09-12-2023 Chronic Cardiac dysrhythmias (20 sources) Tachycardia; 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: [Tachycardia, unspecified] 09-12-2023 Episodic Chronic kidney disease (20 sources) Chronic kidney disease stage 2; 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: [Chronic kidney disease, stage 2 (mild)] 06-12-2023 Chronic Chronic ulcer of skin (3 sources) Non-pressure chronic ulcer of other part of right foot limited to breakdown of skin; 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: [Ulcer of other part of foot] Onset: 01-07-2024 01-28-2024 Chronic Conditions associated with dizziness or vertigo (20 sources) Dizziness; 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: [Dizziness and giddiness] 06-19-2023 Episodic Coronary atherosclerosis and other heart disease (1 source) Coronary atherosclerosis and other heart disease Onset: 05-16-2017 Diabetes mellitus with complications (20 sources) Polyneuropathy due to type 2 diabetes mellitus; 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: [Type 2 diabetes mellitus with diabetic polyneuropathy] Onset: 03-27-2021 Resolved: 01-09-2022 Chronic Diabetes mellitus with complications (1 source) Diabetes mellitus with complications Onset: 05-16-2017 Diabetes mellitus without complication (20 sources) Type 2 diabetes mellitus; 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: [Type 2 diabetes mellitus without complications] Onset: 06-12-2023 06-12-2023 Chronic Digestive congenital anomalies (2 sources) Enlargement of tongue; 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: [Macroglossia] Onset: 10-29-2023 10-29-2023 Chronic Disorders of lipid metabolism (20 sources) Hyperlipidemia; 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: [Hyperlipidemia, unspecified] Onset: 03-27-2021 Resolved: 01-09-2022 Chronic E Codes: Adverse effects of medical drugs (2 sources) Alpha-tocopheryl adverse reaction; 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: [Adverse effect of vitamins, initial encounter] Onset: 11-29-2023 11-29-2023 Episodic Esophageal disorders (18 sources) Stricture of esophagus; 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: [Esophageal obstruction] Chronic Esophageal disorders (20 sources) Achalasia of esophagus; 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: [Achalasia of cardia] 02-09-2021 Episodic Esophageal disorders (1 source) Esophageal disorders Onset: 05-16-2017 Essential hypertension (20 sources) Hypertensive disorder; 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: [Essential (primary) hypertension] Onset: 03-27-2021 Resolved: 01-09-2022 Chronic Essential hypertension (1 source) Essential hypertension Onset: 05-16-2017 Immunizations and screening for infectious disease (2 sources) Anti-nuclear factor positive; 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: [Other specified abnormal immunological findings in serum] Onset: 11-29-2023 11-29-2023 Episodic Malaise and fatigue (20 sources) Fatigue; 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: [Chronic fatigue, unspecified] Chronic Malaise and fatigue (20 sources) Asthenia; 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: [Weakness] Onset: 11-10-2023 11-10-2023 Episodic Miscellaneous mental health disorders (20 sources) Primary insomnia; 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: [Primary insomnia] Chronic Nonspecific chest pain (20 sources) Chest pain; 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: [Chest pain, unspecified] 09-12-2023 Episodic Nutritional deficiencies (20 sources) Vitamin D deficiency; 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: [Vitamin D deficiency, unspecified] Chronic Nutritional deficiencies (20 sources) Deficiency of other specified B group vitamins; 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: [Cobalamin deficiency] Onset: 03-27-2021 Resolved: 01-09-2022 Episodic Other aftercare (20 sources) Long-term current use of insulin; 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: [medical terminologist (current) use of insulin] 06-12-2023 Episodic Other aftercare (13 sources) residential (current) use of insulin; 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: [Long-term (current) use of insulin] Onset: 03-27-2021 Resolved: 01-09-2022 Episodic Other aftercare (13 sources) Post-discharge follow-up; 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: [Encounter for follow-up examination after completed treatment for conditions other than malignant neoplasm] 09-24-2023 Episodic Other aftercare (16 sources) Encounter for follow-up examination after completed treatment for conditions other than malignant neoplasm; 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: [Other follow-up examination] 09-17-2023 Episodic Other aftercare (2 sources) Other senior care (current) drug therapy; 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: [Other adjunct faculty for medical terminology (current) drug therapy] Onset: 11-13-2023 Episodic Other aftercare (1 source) Encounter for therapeutic drug level monitoring; 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: [Encounter for therapeutic drug level monitoring] Onset: 12-02-2023 Episodic Other connective tissue disease (1 source) Pain in right foot; 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: [Pain in right foot] Onset: 01-06-2024 Episodic Other gastrointestinal disorders (20 sources) Dysphagia; 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: [Dysphagia, unspecified] 06-18-2023 Episodic Other gastrointestinal disorders (15 sources) Stricture of esophagus; 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: [Personal history of other diseases of the digestive system] Episodic Other gastrointestinal disorders (1 source) Dysphagia, unspecified Episodic Other injuries and conditions due to external causes (9 sources) Unspecified injury of left foot, initial encounter; 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: [Injury of foot, left] Episodic Other nervous system disorders (20 sources) Peripheral nerve disease ; 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: [Polyneuropathy, unspecified] 06-12-2023 Chronic Other nervous system disorders (20 sources) Polyneuropathy, unspecified; 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: [Unspecified hereditary and idiopathic peripheral neuropathy] Onset: 03-27-2021 Resolved: 01-09-2022 Chronic Other nervous system disorders (11 sources) Walking disability; 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: [Difficulty in walking, not elsewhere classified] 11-10-2023 Chronic Other nervous system disorders (12 sources) Difficulty in walking, not elsewhere classified; 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: [Difficulty in walking] Onset: 11-10-2023 11-10-2023 Chronic Other nervous system disorders (2 sources) Bilateral carpal tunnel syndrome; 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: [Carpal tunnel syndrome, bilateral upper limbs] Onset: 10-29-2023 10-29-2023 Chronic Other nervous system disorders (2 sources) Polyneuropathy; 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: [Polyneuropathy, unspecified] Onset: 10-29-2023 10-29-2023 Chronic Other nervous system disorders (2 sources) Ulnar nerve entrapment at wrist; 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: [Lesion of ulnar nerve, unspecified upper limb] Onset: 12-13-2023 12-13-2023 Chronic Other nutritional; endocrine; and metabolic disorders (20 sources) Obese class I; 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: [Body mass index (BMI) 33.0-33.9, adult] Chronic Other nutritional; endocrine; and metabolic disorders (20 sources) Body mass index 30+ - obesity; 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: [Body mass index (BMI) 32.0-32.9, adult] 06-18-2023 Chronic Other nutritional; endocrine; and metabolic disorders (5 sources) Body mass index (BMI) 30.0-30.9, adult; 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: [Body mass index (BMI) 30.0-30.9, adult] Onset: 03-27-2021 Resolved: 07-10-2021 Chronic Other nutritional; endocrine; and metabolic disorders (20 sources) Obese class II; 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: [Body mass index (BMI) 35.0-35.9, adult] Chronic Other nutritional; endocrine; and metabolic disorders (1 source) Body mass index (BMI) 35.0-35.9, adult Chronic Other nutritional; endocrine; and metabolic disorders (11 sources) Hypomagnesemia; 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: [Hypomagnesemia] 11-10-2023 Chronic Other nutritional; endocrine; and metabolic disorders (19 sources) Hypomagnesemia; 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: [Disorders of magnesium metabolism] Onset: 11-10-2023 11-10-2023 Chronic Other nutritional; endocrine; and metabolic disorders (20 sources) Body mass index (BMI) 28.0-28.9, adult; 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: [Body Mass Index 28.0-28.9, adult] Onset: 01-09-2022 Resolved: 01-09-2022 Episodic Other nutritional; endocrine; and metabolic disorders (1 source) Body mass index (BMI) 29.0-29.9, adult Episodic Other nutritional; endocrine; and metabolic disorders (20 sources) Overweight in adulthood with body mass index of 25 or more but less than 30; 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: [Body mass index (BMI) 28.0-28.9, adult] Onset: 10-07-2023 06-12-2023 Episodic Other screening for suspected conditions (not mental disorders or infectious disease) (17 sources) Thyroid function tests abnormal; 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: [Other specified abnormal findings of blood chemistry] Onset: 07-25-2023 11-14-2023 Episodic Ailyn-; endo-; and myocarditis; cardiomyopathy (except that caused by tuberculosis or sexually transmitted disease) (20 sources) Cardiomyopathy; 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: [Cardiomyopathy, unspecified] Onset: 09-13-2023 09-14-2023 Chronic Peripheral and visceral atherosclerosis (20 sources) Peripheral vascular disease, unspecified; 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: [Peripheral vascular disease] Onset: 01-25-2017 Resolved: 02-27-2021 Chronic Residual codes; unclassified (20 sources) Sleep apnea; 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: [Sleep apnea, unspecified] Chronic Residual codes; unclassified (1 source) Sleep apnea, unspecified Onset: 07-03-2021 Resolved: 07-03-2021 Chronic Residual codes; unclassified (20 sources) Insomnia; 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: [Insomnia, unspecified] Episodic Skin and subcutaneous tissue infections (1 source) Cellulitis of right lower limb; 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: [Cellulitis of right lower limb] Onset: 01-07-2024 Episodic Spondylosis; intervertebral disc disorders; other back problems (9 sources) Radiculopathy, lumbosacral region; 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: [Spasm of muscle of lower back] Onset: 10-29-2023 10-29-2023 Episodic Substance-related disorders (20 sources) Smoker; 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: [Nicotine dependence, unspecified, uncomplicated] Onset: 09-17-2023 Chronic Superficial injury; contusion (2 sources) Blister of foot; 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: [Blister (nonthermal), right foot, subsequent encounter] 01-28-2024 Episodic Thyroid disorders (20 sources) Hypothyroidism; 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: [Hypothyroidism, unspecified] Onset: 11-10-2023 11-10-2023 Chronic Unclassified (3 sources) Dermatochalasis of left upper eyelid / H02.834(ICD-10) Onset: 05-16-2017 Unclassified (1 source) Dermatochalasis of right upper eyelid / H02.831(ICD-10) Onset: 05-16-2017 Unclassified (1 source) Unspecified ptosis of bilateral eyelids / H02.403(ICD-10) Onset: 05-16-2017 Unclassified (1 source) Nicotine dependence, unspecified, uncomplicated / F17.200(ICD-10) Onset: 05-16-2017 Unclassified (1 source) medical terminologist (current) use of aspirin / Z79.82(ICD-10) Onset: 05-16-2017 Unclassified (1 source) medical terminologist (current) use of oral hypoglycemic drugs / Z79.84(ICD-10) Onset: 05-16-2017 Unclassified (2 sources) EKG Visit Onset: 12-02-2023 Urinary tract infections (20 sources) Emphysematous cystitis; 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: [Other cystitis without hematuria] 12-09-2021 Episodic Past or Other Problems Problem Classification Problem Date Documented Date Episodic/Chronic Genitourinary symptoms and ill-defined conditions (2 sources) Proteinuria, unspecified Onset: 03-27-2021 Resolved: 07-10-2021 Episodic Other circulatory disease (2 sources) Hypotension, unspecified; 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: [Hypotension, unspecified] Onset: 09-25-2023 Episodic Other connective tissue disease (1 source) Pain in right leg Onset: 04-03-2021 Resolved: 04-03-2021 Episodic Other connective tissue disease (1 source) Pain in left leg Onset: 04-03-2021 Resolved: 04-03-2021 Episodic Other connective tissue disease (2 sources) Spasm of cervical paraspinous muscle; 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: [Other muscle spasm] Onset: 10-29-2023 10-29-2023 Episodic Other connective tissue disease (2 sources) Neurogenic pain; 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: [Neuralgia and neuritis, unspecified] Onset: 10-29-2023 10-29-2023 Episodic Other connective tissue disease (2 sources) Muscle atrophy; 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: [Muscle wasting and atrophy, not elsewhere classified, multiple sites] Onset: 10-29-2023 10-29-2023 Episodic Other connective tissue disease (2 sources) Pain in bilateral legs; 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: [Pain in right leg] Onset: 10-29-2023 10-29-2023 Episodic Other skin disorders (1 source) Corns and callosities Onset: 07-10-2021 Resolved: 07-10-2021 Episodic Residual codes; unclassified (2 sources) Obstructive sleep apnea syndrome; 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: [Obstructive sleep apnea (adult) (pediatric)] Onset: 10-29-2023 Resolved: 10-29-2023 10-29-2023 Chronic Residual codes; unclassified (1 source) Insomnia, unspecified Onset: 05-08-2021 Resolved: 05-08-2021 Episodic Residual codes; unclassified (2 sources) Asymptomatic menopausal state; 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: [Asymptomatic menopausal state] Onset: 03-05-2023 Episodic Unclassified (1 source) Dermatochalasis of left upper eyelid; 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: [Dermatochalasis of left upper eyelid] Onset: 05-16-2017 Unclassified (1 source) Onset: 10-07-2023 10-07-2023 Results Test Name Value Interpretation Reference Range Facility Aerobic cultureOrdered By: Vamis Fritz on 01-07-2024 Bacteria identified Aer cx Nom (Unsp spec) [facility] Superficial Wound Cultureon 01-07-2024 Superficial Wound Culture Plantar right foot Result Tab Codes Light Normal Skin Erna 2 Days PERFORMED BY: [place] [address] PATHOLOGIST LINE OPERATOR SADAF STANTON M.D. Normal [facility] Comment on above: Performed By: #### B 12, LIPID, BETSY, CMP #### [address] US venous duplex LE BIon US venous duplex LE BI [facility] [place] [address] [place] [address] Ultrasound Report Signed Patient: Kerry Gay MR#: [id number] 19 : 1955 Acct:[id number] Age/Sex: 68 / F ADM Date: 01/06/24 Loc: Room: Type: [facility] Attending Dr: Thuan Wise MD Ordering Provider: Thuan Wise MD Date of Service: 01/06/24 US/US venous duplex LE BI: R60.0,M79.671,RULE OUT DVT Copies to: Thuan Wise MD BILATERAL LOWER EXTREMITY VENOUS DUPLEX INDICATION: Right lower extremity edema pain and tenderness. PROCEDURE: Color-flow duplex scanning is used to interrogate the deep venous system of the right and left lower extremities. The common femoral vein, femoral vein and popliteal vein show good compressibility with normal proximal and distal augmentation. The calf veins are compressible. US/US venous duplex LE BI IMPRESSION: NO EVIDENCE FOR DEEP VEIN THROMBOSIS OR PROXIMAL SUPERFICIAL THROMBOPHLEBITIS IN THE RIGHT OR LEFT LOWER EXTREMITY. Impression dictated by: Tray Nava MD01/07/2024 9:46 AM Dictation Location: [address]: Carmen Motley Transcribed By: AMY 01/07/24945 Dictated By: Tray Nava MD 01/07/24945 Signed By: 01/07/24945 Normal [facility] XR pre/post mri xrayon 12-16 XR pre/post mri xray [facility] [place] [place] [address] MRI Report Signed Patient: Kerry Gay MR#: [id number] [birth year] : 1955 Acct:[id number] Age/Sex: 68 / F ADM Date: 12/17/23 Loc: [facility] Room: Type: [facility] Attending Dr: Oz Kincaid MD Copies to: Oz Kincaid MD Ordering Provider: Oz Kincaid MD Date of Service: 12/17/23 MR/MR lumbar spine wo con: m54.17 ([id number]) XR/XR pre/post mri xray: post MRI lumbar MR lumbar spine wo con, XR pre/post mri xray 12/17/2023 10:02 AM SIGNS AND SYMPTOMS: Back pain, unsteady gait PROTOCOL: Multiplanar multisequence MR images of the lumbar spine were obtained without IV contrast. Frontal and lateral graphs of the lumbar spine were obtained. COMPARISON: 10/30/2023 FINDINGS: Radiographs of the lumbar spine: There is a dextro convex curvature of the lumbar spine similar to the prior exam. Surgical clips are present in the right upper quadrant consistent with prior cholecystectomy. There is moderate disc height loss at L4-5 and L5-S1 with mild disc height loss throughout otherwise. There is accompanying anterior osteophyte formation and facet. Atherosclerotic changes are noted in the abdominal aorta. MRI lumbar spine: The bones of the lumbar spine are in anatomic alignment. There is preservation of vertebral body heights. There is Schmorl's node formation in the superior endplate of the L3 vertebral body. There is accompanying mild Modic type I endplate edema at L2-L3. The marrow signal is within normal limits otherwise. Disc height loss is as noted above. The conus terminates at the inferior endplate of the L1 vertebral body level. No epidural or paraspinous fluid collection is appreciated. At T12-L1: There is a central disc protrusion contributing to mild spinal canal stenosis with no significant neural foraminal narrowing. At L1-L2: There is a broad-based disc bulge with facet hypertrophy and ligamentum flavum thickening. There is mild spinal canal stenosis with mild bilateral neural foraminal narrowing. At L2-L3: There is a circumferential disc bulge with facet hypertrophy and ligamentum flavum thickening. There is moderate spinal canal stenosis. There is moderate left and mild right neural foraminal narrowing. At L3-L4: There is a broad-based disc bulge with facet hypertrophy and ligamentum flavum thickening. There is mild spinal canal stenosis with mild bilateral neural foraminal narrowing. At L4-L5: There is a broad-based disc bulge with facet hypertrophy. There is mild spinal canal narrowing with moderate bilateral neural foraminal stenosis. At L5-S1: Facet degenerative changes are present bilaterally. There is endplate osteophyte formation. There is moderate bilateral neural foraminal narrowing with minimal spinal canal narrowing. MR/MR lumbar spine wo con IMPRESSION: There is a slight dextro convex curvature of the lumbar spine similar to the prior exam. Multilevel degenerative change is noted throughout the lumbar spine. There are varying degrees of spinal canal and neural foraminal stenosis as described above. Impression dictated by: Oz Bowling M.D.12/17/2023 12:50 PM Dictation Location: [place] [address] Transcribed By: AMY 12/17/23 1250 Dictated By: Oz Bowling II, MD 12/17/23 1240 Signed By: 12/17/23 1250 Normal [facility] Alanine aminotransferase [En zymatic activity/volume] in Serum or PlasmaOrdered By: Tolu Salinas on 12-02-2023 ALT [Catalytic activity/Vol] 31 U/L [facility] Comment on above: Performed By: #### B 12, LIPID, URMACRERAT, CMP #### [address] Albumin [Mass/volume] in Ser um or Plasma by Bromocresol green (BCG) dye binding methoOrdered By: Tolu Salinas on 12-02-2023 Albumin BCG dye [Mass/Vol] 4.2 g/dL 3.5-5.7 [facility] Alkaline phosphatase [Enzyma tic activity/volume] in Serum or PlasmaOrdered By: Tolu Salinas on 12-02-2023 ALP [Catalytic activity/Vol] 75 U/L 34-104 [facility] Comment on above: Performed By: #### B 12, LIPID, URMACRERAT, CMP #### [facility] [address] Arsenicon 12-02-2023 Arsenic 2 Normal 0-9 [facility] Comment on above: Result Comment: This test was developed and its performance characteristics determined by [facility]. It has not been cleared or approved by the Food and Drug Administration. Detection Limit = 1 Performed By: #### B 12, LIPID, URMACRERAT, CMP #### [facility] [address] Aspartate aminotransferase [ Enzymatic activity/volume] in Serum or PlasmaOrdered By: Tolu Salinas on 12-02-2023 AST [Catalytic activity/Vol] 37 U/L 13-39 [facility] Comment on above: Performed By: #### B 12, LIPID, URMACRERAT, CMP #### [facility] [address] Basophil percentageOrdered B y: Oz Kincaid on 12-02-2023 Basophil percentage 96 ug/dL 80-158 [facility] Comment on above: This test was develo ped and its performance characteristicsdetermined by [facility]. It has not been cleared orapproved by the Food and Drug Administration. Detection Limit = 5Performed at: [facility] [place] [address] [place], [place] [id number] Director: Christine Pham MD, Phone: [phone] Basophil percentage 2 ug/L 0-9 [facility] Comment on above: This test was develo ped and its performance characteristicsdetermined by [facility]. It has not been cleared orapproved by the Food and Drug Administration. Detection Limit = 1 Bilirubin.total [Mass/volume ] in Serum or PlasmaOrdered By: Tolu Salinas on 12-02-2023 Bilirubin [Mass/Vol] 0.4 mg/dL 0.3-1.0 [facility] Comment on above: Performed By: #### B 12, LIPID, URMACRERAT, CMP #### [facility] [address] Blood lead detectionOrdered By: Oz Kincaid on 12-02-2023 Lead Ql (Bld) <1.0 ug/dL 0.0-3.4 [facility] Comment on above: Testing performed by Inductively coupled plasma/MassSpectrometry.Analysis by inductively coupled plasma/massspectrometry (ICP/MS)This test was developed and its performance characteristicsdetermined by [employer]. It has not been cleared orapproved by the Food and Drug Administration. Environmental Exposure: WHO Recommendation <5.0 Occupational Exposure: OSHA Lead Std 40.0 BOB 30.0 Detection Limit = 1.0Performed at: [facility] [employer] [id number] Director: Yuri Osullivan PhD, Phone: [phone] Blood mercury measurement (m ass/volume)Ordered By: Oz Kincaid on 12-02-2023 Mercury (Bld) [Mass/Vol] <1.0 ug/L 0.0-14.9 [facility] Comment on above: This test was develo ped and its performance characteristicsdetermined by [employer]. It has not been cleared orapproved by the Food and Drug Administration. Detection Limit = 1.0Performed at: [facility] [employer] [id number] Director: Christine Pham MD, Phone: [phone] Calcium [Mass/volume] in Ser um or PlasmaOrdered By: Tolu Salinas on 12-02-2023 Calcium [Mass/Vol] 9.9 mg/dL 8.6-10.3 [facility] Comment on above: Performed By: #### B 12, LIPID, URMACRERAT, CMP #### [facility] [address] Carbon dioxide, total [Moles /volume] in Serum or PlasmaOrdered By: Tolu Salinas on 12-02-2023 CO2 [Moles/Vol] 32.0 mmol/L High 21.0-31.0 [facility] Comment on above: Performed By: #### B 12, LIPID, URMACRERAT, CMP #### [address] Ceruloplasminon 12-02-2023 Ceruloplasmin 26.8 mg/dL Normal 19.0-39.0 [facility] Comment on above: Result Comment: Perf ormed at: CB - [facility] [address] [id number] Bag Adjuster: Yuri Osullivan PhD, Phone: [phone] PERFORMED BY: [place] [address] PATHOLOGIST LINE OPERATOR SADAF STANTON M.D. Performed By: #### B 12, LIPID, URMACRERAT, CMP #### [address] Chloride [Moles/volume] in S elliot or PlasmaOrdered By: Tolu Salinas on 12-02-2023 Chloride [Moles/Vol] 103 mmol/L 98-107 [facility] Comment on above: Performed By: #### B 12, LIPID, URMACRERAT, CMP #### [address] Complement C3on 12-02-2023 Complement C3 147 mg/dL Normal 82-167 [facility] Comment on above: Result Comment: Perf ormed at: CB - [facility] [address] [id number] Bag Adjuster: Yuri Osullivan PhD, Phone: [phone] Performed By: #### B 12, LIPID, URMACRERAT, CMP #### [facility] [address] [place] [address] Complement C4on 12-02-2023 Complement C4 32 mg/dL Normal 12-38 [facility] Comment on above: Performed By: #### B 12, LIPID, URMACRERAT, CMP #### [address] Comprehensive Metabolic Pane babita 12-02-2023 Albumin [Mass/Vol] 4.2 g/dL Normal 3.5-5.7 [facility] Comment on above: Performed By: #### B 12, LIPID, URMACRERAT, CMP #### [address] GFR/1.73 sq M.predicted MDRD (S/P/Bld) [Vol rate/Area] mL/min/{1.73_m2} Normal [facility] Comment on above: Performed By: #### B 12, LIPID, URMACRERAT, CMP #### [address] Copperon 12-02-2023 Copper 96 ug/dL Normal 80-158 [facility] Comment on above: Result Comment: This test was developed and its performance characteristics determined by [employer]. It has not been cleared or approved by the Food and Drug Administration. Detection Limit = 5 Performed at: [facility] [address] [id number] Bag Adjuster: Christine Pham MD, Phone: [phone] Performed By: #### B 12, LIPID, URMACRERAT, CMP #### [address] Creatinine [Mass/volume] in Serum or PlasmaOrdered By: Tolu Salinas on 12-02-2023 Creatinine [Mass/Vol] 0.97 mg/dL 0.60-1.20 [facility] Comment on above: Performed By: #### B 12, LIPID, URMACRERAT, CMP #### [address] Cryoglobulin with Quant Refl exon 12-02-2023 Cryoglobulin, Ql, Serum Comment Normal None detected [facility] Comment on above: Result Comment: None Detected at 72 hours This test was developed and its performance characteristics determined by [employer]. It has not been cleared or approved by the Food and Drug Administration. Performed at: [facility] [address] [id number] Bag Adjuster: Yuri Osullivan PhD, Phone: [phone] Performed By: #### B 12, LIPID, URMACRERAT, CMP #### [facility] [address] Glucose [Mass/volume] in Ser um or PlasmaOrdered By: Tolu Salinas on 12-02-2023 Glucose [Mass/Vol] 114 mg/dL High 70-100 [facility] Comment on above: ADA recommended refe rence rangeRandom Glucose Reference Range is dependent on time and content of last meal. Glucose of more than 200 mg/dL in a nonstressed, ambulatory subject supports the diagnosis of Diabetes Mellitus. Result Comment: [place] om Glucose Reference Range is dependent on time and content of last meal. Glucose of more than 200 mg/dL in a nonstressed, ambulatory subject supports the diagnosis of Diabetes Mellitus. ADA recommended reference range Performed By: #### B 12, LIPID, URMACRERAT, CMP #### [facility] [address] [place] [id number] [facility] HIV 1/O/2 Antigen/Antibodyon 12-02-2023 HIV Screen 4th Generation Non-Reactive Normal Non Reactive [facility] Comment on above: Result Comment: HIV- 1/HIV-2 antibodies and HIV-1 p24 antigen were NOT detected. There is no laboratory evidence of HIV infection. HIV Negative Performed at: [facility] [place] [address] Bag Adjuster: Yuri Osullivan PhD, Phone: [phone] Performed By: #### B 12, LIPID, URMACRERAT, CMP #### [facility] [address] HIV 1 and HIV-2 antibody ass ay with HIV-1 p24 antigen detectionOrdered By: Oz Kincaid on 12-02-2023 HIV 1+2 Ab+HIV1 p24 Ag IA Ql Non-Reactive Non Reactive [facility] Comment on above: HIV-1/HIV-2 antibodi es and HIV-1 p24 antigen were NOTdetected. There is no laboratory evidence of HIV infection.HIV NegativePerformed at: [place] [id number] Director: Yuri Osullivan PhD, Phone: [phone] Hepatitis Acute Panelon HBsAg Screen Negative Normal Negative [facility] Comment on above: Performed By: #### B 12, LIPID, URMACRERAT, CMP #### [address] Hepatitis A Antibody IgM Negative Normal Negative [facility] Comment on above: Performed By: #### B 12, LIPID, URMACRERAT, CMP #### [address] Hepatitis B Core Antibody IgM Negative Normal Negative [facility] Comment on above: Performed By: #### B 12, LIPID, URMACRERAT, CMP #### [address] Hepatitis C Virus Antibody Non-Reactive Normal Non Reactive [facility] Comment on above: Performed By: #### B 12, LIPID, URMACRERAT, CMP #### [address] Interpretation Hepatitis C Comment Normal . [facility] Comment on above: Result Comment: Not infected with HCV unless early or acute infection is suspected (which may be delayed in an immunocompromised individual), or other evidence exists to indicate HCV infection. Performed at: - [facility] [id number] Bag Adjuster: Yuri Osullivan PhD, Phone: [phone] PERFORMED BY: [place] [address] PATHOLOGIST LINE OPERATOR SADAF STANTON M.D. Performed By: #### B 12, LIPID, URMACRERAT, CMP #### [address] Hepatitis B virus surface Ag [Presence] in Serum or Plasma by ImmunoassayOrdered By: Oz Kincaid on 12-02-2023 HBV surface Ag IA Ql Negative Negative [facility] Hepatitis C virus IgG Ab [Pr esence] in Serum or Plasma by ImmunoassayOrdered By: Oz Kincaid on 12-02-2023 HCV IgG IA Ql Non-Reactive Non Reactive [facility] Hepatitis C virus RNA [Units /volume] (viral load) in Serum or Plasma by TEJINDER with probOrdered By: Oz Kincaid on 12-02-2023 HCV RNA TEJINDER+probe Qn N/A [facility] Hepatitis C virus RNA [log u nits/volume] (viral load) in Serum or Plasma by TEJINDER withOrdered By: Oz Purvisjeni on 12-02-2023 HCV RNA TEJINDER+probe [Log units/Vol] N/A [facility] LDH Lactate Dehydrogenaseon 12-02-2023 LDH Lactate Dehydrogenase 156 U/L Normal 140-271 [facility] Comment on above: Result Comment: PERF ORMED BY: [place] [address] PATHOLOGIST LINE OPERATOR SADAF STANTON M.D. Performed By: #### B 12, LIPID, URMACRERAT, CMP #### [address] Lactate dehydrogenase [Enzym atic activity/volume] in Serum or Plasma by Lactate to pyOrdered By: Oz Purvisjeni on 12-02-2023 LDH Lactate to pyruvate reaction [Catalytic activity/Vol] 156 U/L 140-271 [facility] Lead, Adulton 12-02-2023 Lead-Adult Blood <1.0 Normal 0.0-3.4 [facility] Comment on above: Result Comment: Test ing performed by Inductively coupled plasma/Mass Spectrometry. Analysis by inductively coupled plasma/mass spectrometry (ICP/MS) This test was developed and its performance characteristics determined by [employer]. It has not been cleared or approved by the Food and Drug Administration. Environmental Exposure: WHO Recommendation <5.0 Occupational Exposure: OSHA Lead Std 40.0 BOB 30.0 Detection Limit = 1.0 Performed at: [facility] [id number] Bag Adjuster: Yuri Osullivan PhD, Phone: [phone] Performed By: #### B 12, LIPID, URMACRERAT, CMP #### [facility] [address] MISC LABon 12-02-2023 MISC LAB Normal [facility] Comment on above: Order Comment: [facility] Test Name: MOTOR AND SENSORY NEUROPATHY PANEL WITH REFLEX TO ARUP [id number] Result Comment: See report. Scanned copy available in EMR. PERFORMED BY: [place] [address] PATHOLOGIST LINE OPERATOR SADAF STANTON M.D. Performed By: #### B 12, LIPID, URMACRERAT, CMP #### [address] MISC2 LABon 12-02-2023 MISC2 LAB Normal [facility] Comment on above: Order Comment: [facility] 2 Test Name: DELTA-ALA URINE RANDOM LC [id number] Result Comment: See report. Scanned copy available in EMR. PERFORMED BY: [place] [address] PATHOLOGIST LINE OPERATOR SADAF STANTON M.D. Performed By: #### B 12, LIPID, URMACRERAT, CMP #### [address] Magnesium [Mass/volume] in S elliot or PlasmaOrdered By: Tolu Salinas on 12-02-2023 Magnesium [Mass/Vol] 2.0 mg/dL 1.9-2.7 [facility] Comment on above: Result Comment: PERF ORMED BY: [place] [address] PATHOLOGIST LINE OPERATOR SADAF STANTON M.D. Performed By: #### B 12, LIPID, URMACRERAT, CMP #### [address] Mercury Bloodon 12-02-2023 Mercury, Blood <1.0 Normal 0.0-14.9 [facility] Comment on above: Result Comment: This test was developed and its performance characteristics determined by [facility]. It has not been cleared or approved by the Food and Drug Administration. Detection Limit = 1.0 Performed at: [address] [id number] Bag Adjuster: Christine Pham MD, Phone: [phone] Performed By: #### B 12, LIPID, URMACRERAT, CMP #### [facility] [address] No Panel InformationOrdered By: Oz Kincaid on 12-02-2023 Miscellaneous Test 2 See comment [facility] Comment on above: See report. Scanned copy available in EMR. Hepatitis A IgM Antibody Negative Negative [facility] Hepatitis B Core IgM Antibody Negative Negative [facility] Hepatitis C Interpretation Comment . [facility] Comment on above: Not infected with HC V unless early or acute infection issuspected (which may be delayed in an immunocompromisedindividual), or other evidence exists to indicate HCVinfection.Performed at: [facility] [id number] Director: Yuri Osullivan PhD, Phone: [phone] Miscellaneous Test See comment [facility] Comment on above: See report. Scanned copy available in EMR. Whole Blood Zinc 768 ug/dL 440-860 [facility] Comment on above: This test was develo ped and its performance characteristicsdetermined by [facility]. It has not been cleared orapproved by the Food and Drug Administration.Performed at: [facility] [id number] Director: Christine Pham MD, Phone: [phone] No Panel InformationOrdered By: Tolu Salinas on 12-02-2023 Estimated GFR (CKD-EPI) > 60.0 mL/Min [facility] Creatinine Clearance (Chem N/A [facility] Potassium [Moles/volume] in Serum or PlasmaOrdered By: Tolu Salinas on 12-02-2023 Potassium [Moles/Vol] 4.5 mmol/L 3.5-5.1 [facility] Comment on above: Performed By: #### B 12, LIPID, URMACRERAT, CMP #### [facility] [address] [place] [id number] [facility] Protein [Mass/volume] in Ser um or PlasmaOrdered By: Tolu Salinas on 12-02-2023 Protein [Mass/Vol] 6.9 g/dL 6.4-8.9 [facility] Comment on above: Performed By: #### B 12, LIPID, URMACRERAT, CMP #### [address] Serum angiotensin converting enzyme (REGINA) measurementOrdered By: Oz Kincaid on 12-02-2023 Angiotensin converting enzyme [Catalytic activity/Vol] 53 U/L 14 [facility] Comment on above: Performed at: - [facility] [address] Director: Yuri Osullivan PhD, Phone: [phone] Result Comment: Perf ormed at: - [facility] [place] [address] Bag Adjuster: Yuri Osullivan PhD, Phone: [phone] Performed By: #### B 12, LIPID, URMACRERAT, CMP #### [address] Serum cryoglobulin detection Ordered By: Oz Kincaid on 12-02-2023 Cryoglobulin Ql (S) Comment None detected [facility] Comment on above: None Detected at 72 hoursThis test was developed and its performance characteristicsdetermined by [employer]. It has not been cleared orapproved by the Food and Drug Administration.Performed at: [facility] [address] [id number] Director: Yuri Osullivan PhD, Phone: [phone] Serum globulin measurement b y calculation (mass/volume)Ordered By: Tolu Salinas on 12-02-2023 Globulin (S) [Mass/Vol] 2.7 g/dL [facility] Comment on above: Performed By: #### B 12, LIPID, URMACRERAT, CMP #### [facility] [address] [place] [address] Serum or plasma albumin/glob ulin mass ratioOrdered By: Tolu Salinas on 12-02-2023 Albumin/Globulin [Mass ratio] 1.6 {ratio} [facility] Comment on above: Performed By: #### B 12, LIPID, URMACRERAT, CMP #### [facility] [address] Serum or plasma anion gap de terminationOrdered By: Tolu Salinas on 12-02-2023 Anion gap [Moles/Vol] 8.5 mmol/L 6.0-15.0 [facility] Comment on above: Performed By: #### B 12, LIPID, URMACRERAT, CMP #### [facility] [address] Serum or plasma ceruloplasmi n measurement (mass/volume)Ordered By: Oz Kincaid on 12-02-2023 Ceruloplasmin [Mass/Vol] 26.8 mg/dL 19.0-39.0 [facility] Comment on above: Performed at: [facility] [place] [id number] Director: Yuri Osullivan PhD, Phone: [phone] Serum or plasma complement C 3 measurement (mass/volume)Ordered By: Oz Kincaid on 12-02-2023 Complement C3 [Mass/Vol] 147 mg/dL 82-167 [facility] Comment on above: Performed at: [facility] [place] [id number] Director: Yuri Osullivan PhD, Phone: [phone] Serum or plasma complement C 4 measurement (mass/volume)Ordered By: Oz Kincaid on 12-02-2023 Complement C4 [Mass/Vol] 32 mg/dL 12-38 [facility] Sodium [Moles/volume] in Ser um or PlasmaOrdered By: Tolu Salinas on 12-02-2023 Sodium [Moles/Vol] 139 mmol/L 136-145 [facility] Comment on above: Performed By: #### B 12, LIPID, URMACRERAT, CMP #### [facility] [address] Thalliumon 12-02-2023 Thallium <1.0 Normal <5.0 [facility] Comment on above: Result Comment: Thal lium concentrations greater than 300 ng/ml are consistent with acute toxicity. Urine is the preferred specimen for assessment of thallium exposure. Thallium analysis performed by inductively coupled plasma / mass spectrometry (ICP/MS). This test was developed and its performance characteristics determined by [employer]. It has not been cleared or approved by the Food and Drug Administration. Performed at: [facility] [address] [place] [id number] Bag Adjuster: Whitney Arevalo [facility], Phone: [phone] PERFORMED BY: [facility] [address] [place] [address] PATHOLOGIST LINE OPERATOR SADAF STANTON M.D. Performed By: #### B 12, LIPID, URMACRERAT, CMP #### [facility] [address] [place] [id number] [facility] Thallium [Mass/volume] in Se rum or PlasmaOrdered By: Oz Kincaid on 12-02-2023 Thallium [Mass/Vol] <1.0 ng/mL <5.0 [facility] Comment on above: Thallium concentrati ons greater than 300 ng/ml are consistent with acute toxicity. Urine is the preferred specimen for assessment of thallium exposure. Thallium analysis performed by inductively coupled plasma / mass spectrometry (ICP/MS).This test was developed and its performance characteristicsdetermined by [employer]. It has not been cleared or approvedby the Food and Drug Administration.Performed at: [facility] [facility] [place] [address] [id number] Director: Whitney Arevalo [facility], Phone: [phone] Urea nitrogen [Mass/volume] in Serum or PlasmaOrdered By: Tolu Salinas on 12-02-2023 Urea nitrogen [Mass/Vol] 11 mg/dL 11-20 [facility] Comment on above: Performed By: #### B 12, LIPID, URMACRERAT, CMP #### [facility] [address] [place] [id number] [place] Zinc, Whole Bloodon 12-02-19 24 Zinc, Whole Blood 768 ug/dL Normal 440-860 [facility] Comment on above: Result Comment: This test was developed and its performance characteristics determined by [employer]. It has not been cleared or approved by the Food and Drug Administration. Performed at: [address] [id number] Bag Adjuster: Christine Pham MD, Phone: [phone] Performed By: #### B 12, LIPID, URMACRERAT, CMP #### [facility] [address] PO Antinuclear Antibodieson 11-26-2023 Antinuclear Abs, IFA Positive Critically abnormal . [facility] Comment on above: Result Comment: Nega tive <1:80 Borderline 1:80 Positive >1:80 Performed By: #### A DDONUAPLUS, CUU #### [facility] [address] Note 1 Comment Normal . [facility] Comment on above: Result Comment: Gayatri kaufman Potential Disease Association Homogeneous Systemic Lupus Erythematosus, Drug Induced Systemic Lupus Erythematosus, Chronic Autoimmune hepatitis, Juvenile Idiopathic Arthritis Speckled Sjogren Syndrome, Systemic Lupus Erythematosus, Subacute Cutaneous Lupus, Lupus, Congenital Heart Block, Mixed Connective Tissue Disease, Scleroderma-diffuse, Scleroderma-Autoimmune Myositis Overlap Syndrome, Systemic Lupus Liaguurwaphqi-Pycdnpwhngr-Aiblcsevxu Myositis Overlap Syndrome, Systemic Autoimmune Rheumatic Disease, Undifferentiated Connective Tissue Disease Nucleolar Systemic Sclerosis, Scleroderma-Autoimmune Myositis Overlap Syndrome, Sjogren Syndrome, Raynaud phenomenon, Pulmonary Arterial Hypertension, Systemic Autoimmune Rheumatic Disease, Cancer Centromere Scleroderma-CREST, Limited Cutaneous SSc, Raynaud's Phenomenon, Primary Biliary Cholangitis Nuclear Dot Primary Biliary Cholangitis Nuclear Primary Biliary Cholangitis, Autoimmune Membrane Hepatitis/Liver disease, Systemic Autoimmune Rheumatic Disease, Autoimmune Cytopenias, Linear Scleroderma, Antiphospholipid Syndrome Performed at: - [place] [address] Bag Adjuster: Yuri Osullivan PhD, Phone: [phone] Performed By: #### A DASIA, CUU #### [address] Speckled Pattern 1:320 High . [facility] Comment on above: Result Comment: ICAP nomenclature: AC-2,4,5,29 Performed By: #### A PORFIRIOUAPLUS, CUU #### [address] ANCA Profile (ANCA+MPO+PR3)o n 11-26-2023 Antimyeloperoxidase (MPO) Abs <0.2 Normal 0.0-0.9 [facility] Comment on above: Performed By: #### A DASIA, CUU #### [address] Atypical pANCA <1:20 Normal Neg:<1:20 [facility] Comment on above: Result Comment: The atypical pANCA pattern has been observed in a significant percentage of patients with ulcerative colitis, primary sclerosing cholangitis and autoimmune hepatitis. Performed at: [address] [id number] Bag Adjuster: Christine Pham MD, Phone: [phone] Performed at: [address] [id number] Bag Adjuster: Yuri Osullivan PhD, Phone: [phone] Performed By: #### A DDONUAPLUS, CUU #### [place] [address] [place] Cytoplasmic (C-ANCA) <1:20 Normal Neg:<1:20 [facility] Comment on above: Performed By: #### A DDONUAPLUS, CUU #### [place] [address] [place] Perinuclear (P-ANCA) <1:20 Normal Neg:<1:20 [facility] [facility] Comment on above: Result Comment: The presence of positive fluorescence exhibiting P-ANCA or C-ANCA patterns alone is not specific for the diagnosis of Marni's Granulomatosis (WG) or microscopic polyangiitis. Decisions about treatment should not be based solely on ANCA IFA results. The International ANCA Group Consensus recommends follow up testing of positive sera with both ND- 3 and MPO-ANCA enzyme immunoassays. As many as 5% serum samples are positive only by EIA. Ref. AM J Clin Pathol 1999;111:507-513. Performed By: #### A DDONUAPLUS, CUU #### [place] [address] [place] Proteinase 3 (PR3) Antibodies <0.2 Normal 0.0-0.9 [facility] Comment on above: Performed By: #### A DDONUAPLUS, CUU #### [place] [id number] [place] Anti-Centromere B Antibodies on 11-26-2023 Anti-Centromere B Antibodies <0.2 Normal 0.0-0.9 [facility] Comment on above: Result Comment: Perf ormed at: [place] [address] [place], [place] [id number] Bag Adjuster: Yuri Osullivan PhD, Phone: [phone] Performed By: #### A DDONUAPLUS, CUU #### [place] [address] [place] Anti-RNPon 11-26-2023 Anti-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 TEACHER 0.3 Normal 0.0-0.9 [facility] Comment on above: Performed By: #### A DDONUAPLUS, CUU #### [place] [address] [place] Anti-Fritz Antibodieson 10-29 Anti-Fritz Antibodies <0.2 Normal 0.0-0.9 [facility] Comment on above: Performed By: #### A DDONUAPLUS, CUU #### [place] [address] [place] Anti-dsDNA(DBL)Abon 11-26-19 24 Anti-dsDNA(DBL)Ab 1 Normal 0-9 [facility] Comment on above: Result Comment: Nega tive <5 Equivocal 5 - 9 Positive >9 Performed By: #### A DDONUAPLUS, CUU #### [place] [address] [place] Antiribosomal P Antibodieson 11-26-2023 Antiribosomal P Antibodies <0.2 Normal 0.0-0.9 [facility] Comment on above: Performed By: #### A DDONUAPLUS, CUU #### [place] [address] [place] DNA double strand Ab [Units/ volume] in SerumOrdered By: Oz Kincaid on 11-26-2023 DNA double strand Ab Qn (S) 1 [IU]/mL 0-9 [facility] Comment on above: Negative <5 Equivoca l 5 - 9 Positive >9 Histone Antibodieson 024 Histone Antibodies 0.6 Normal 0.0-0.9 [facility] Comment on above: Result Comment: Nega tive <1.0 Weak Positive 1.0 - 1.5 Moderate Positive 1.6 - 2.5 Strong Positive >2.5 Performed at: [address] [id number] Bag Adjuster: Christine Pham MD, Phone: [phone] Performed By: #### A DDONUAPLUS, CUU #### [place] [address] [place] SUSHMA-1 Antibodyon 11-26-2023 SUSHMA-1 Antibody <0.2 Normal 0.0-0.9 [facility] Comment on above: Performed By: #### A DDONUAPLUS, CUU #### [place] [address] [place] Lactate and Pyruvateon 11-25 Lactic Acid, Plasma 27.1 mg/dL High 4.8-25.7 [facility] Comment on above: Performed By: #### B 12, LIPID, URMACRERAT, CMP #### [address] Pyruvic Acid, Blood 0.7 mg/dL Normal 0.3-0.7 [facility] Comment on above: Result Comment: This test was developed and its performance characteristics determined by [facility]. It has not been cleared or approved by the Food and Drug Administration. Performed at: [address] [id number] Bag Adjuster: Yuri Osullivan PhD, Phone: [phone] Performed at: [address] [id number] Bag Adjuster: Christine Pham MD, Phone: [phone] PERFORMED BY: [place] [address] PATHOLOGIST LINE OPERATOR SADAF STANTON M.D. Performed By: #### B 12, LIPID, URMACRERAT, CMP #### [address] Mitochondrial (M2) Antibodyo n 11-26-2023 Mitochondrial (M2) Antibody <20.0 Normal 0.0-20.0 [facility] Comment on above: Result Comment: Nega tive 0.0 - 20.0 Equivocal 20.1 - 24.9 Positive >24.9 Mitochondrial (M2) Antibodies are found in 90-96% of patients with primary biliary cirrhosis. Performed at: [address] [id number] Bag Adjuster: Yuri Osullivan PhD, Phone: [phone] Performed By: #### A DDHUMBLEUAEARL, CUU #### [address] Myeloperoxidase Ab [Units/vo lume] in Serum by ImmunoassayOrdered By: Oz Kincaid on 11-26-2023 Myeloperoxidase Ab IA Qn (S) <0.2 units 0.0-0.9 [facility] No Panel InformationOrdered By: Oz Kincaid on 11-26-2023 Anti-Nuclear Antibody Comment 2 Comment . [facility] Comment on above: Pattern Potential Di sease Association Homogeneous Systemic Lupus Erythematosus, Drug Induced Systemic Lupus Erythematosus, Chronic Autoimmune hepatitis, Juvenile Idiopathic Arthritis Speckled Sjogren Syndrome, Systemic Lupus Erythematosus, Subacute Cutaneous Lupus, Lupus, Congenital Heart Block, Mixed Connective Tissue Disease, Scleroderma-diffuse, Scleroderma-Autoimmune Myositis Overlap Syndrome, Systemic Lupus Mqzawzevrxryy-Zomzoanwcvr-Ypwbfmqkeb Myositis Overlap Syndrome, Systemic Autoimmune Rheumatic Disease, Undifferentiated Connective Tissue Disease Nucleolar Systemic Sclerosis, Scleroderma-Autoimmune Myositis Overlap Syndrome, Sjogren Syndrome, Raynaud phenomenon, Pulmonary Arterial Hypertension, Systemic Autoimmune Rheumatic Disease, Cancer Centromere Scleroderma-CREST, Limited Cutaneous SSc, Raynaud's Phenomenon, Primary Biliary Cholangitis Nuclear Dot Primary Biliary Cholangitis Nuclear Primary Biliary Cholangitis, AutoimmuneMembrane Hepatitis/Liver disease, Systemic Autoimmune Rheumatic Disease, Autoimmune Cytopenias, Linear Scleroderma, Antiphospholipid Syndrome Performed at: [facility] [id number] Director: Yuri Osullivan PhD, Phone: [phone] Atypical p-ANCA <1:20 titer Neg:<1:20 [facility] Comment on above: The atypical pANCA p attern has been observed in asignificant percentage of patients with ulcerative colitis,primary sclerosing cholangitis and autoimmune hepatitis.Performed at: [facility] [id number] Director: Christine Pham MD, Phone: [phone] at: [facility] [id number] Director: Yuri Osullivan PhD, Phone: [phone] Perinuclear ANCA (p-ANCA) Antibody <1:20 titer Neg:<1:20 [facility] Comment on above: The presence of posi tive fluorescence exhibiting P-ANCA orC-ANCA patterns alone is not specific for the diagnosis ofWegener's Granulomatosis (WG) or microscopic polyangiitis.Decisions about treatment should not be based solely onANCA IFA results. The International ANCA Group Consensusrecommends follow up testing of positive sera with both ND-3 and MPO-ANCA enzyme immunoassays. As many as 5% serumsamples are positive only by EIA. Ref. AM J Clin Sgespk4708;111:507-513. Plasma Lactic Acid, Venous 27.1 mg/dL High 4.8-25.7 [facility] Pyruvic Acid 0.7 mg/dL 0.3-0.7 [facility] Comment on above: This test was develo ped and its performance characteristicsdetermined by [facility]. It has not been cleared orapproved by the Food and Drug Administration.Performed at: [facility] [address] [id number] Director: Yuri Osullivan PhD, Phone: [phone] at: [facility] [address] [id number] Director: Christine Pham MD, Phone: [phone] 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 TEACHER Antibody 0.3 AI 0.0-0.9 [facility] Scl-70 (Scleroderma) Antibody <0.2 AI 0.0-0.9 [facility] Signal Recognition Particle (SRP) Negative Negative [facility] Comment on above: This test was develo ped and its performance characteristicsdetermined by [employer]. It has not been cleared orapproved by the Food and Drug Administration.Performed at: [facility] [address] [place], [place] [id number] Director: Juan Cruz MD, Phone: [phone] Proteinase 3 Ab [Units/volum e] in Serum by ImmunoassayOrdered By: Oz Kincaid on 11-26-2023 Proteinase 3 Ab IA Qn (S) <0.2 units 0.0-0.9 [facility] Ribosomal P Ab [Units/volume ] in SerumOrdered By: Oz Kincaid on 11-26-2023 Ribosomal P Ab Qn (S) <0.2 AI 0.0-0.9 [facility] SRP Autoantibodieson 024 SRP (Signal Recog. Particle) Negative Normal Negative [facility] Comment on above: Result Comment: This test was developed and its performance characteristics determined by [facility]. It has not been cleared or approved by the Food and Drug Administration. Performed at: [facility] [address] [place] [id number] Bag Adjuster: Juan Cruz MD, Phone: [phone] PERFORMED BY: [place] [address] PATHOLOGIST LINE OPERATOR SADAF STANTON M.D. Performed By: #### A DDONUAPLUS, CUU #### [facility] [address] [place] [address] Scleroderma 70 Antibodieson 11-26-2023 Scleroderma 70 Antibodies <0.2 Normal 0.0-0.9 [facility] Comment on above: Performed By: #### A DDONUAPLUS, CUU #### [facility] [address] [place] [address] Serum Sushma-1 extractable nucle ar antibody assay (units/volume)Ordered By: Oz Kincaid on 11-26-2023 Sushma-1 extractable nuclear Ab Qn (S) <0.2 AI 0.0-0.9 [facility] Serum Sjogrens syndrome-A ex tractable nuclear antibody assay (units/volume)Ordered By: Oz Kincaid on 11-26-2023 Sjogrens syndrome-A extractable nuclear Ab Qn (S) <0.2 AI 0.0-0.9 [facility] Serum Sjogrens syndrome-B ex tractable nuclear antibody assay (units/volume)Ordered By: Oz Kincaid on 11-26-2023 Sjogrens syndrome-B extractable nuclear Ab Qn (S) <0.2 AI 0.0-0.9 [facility] Serum Fritz extractable nucl ear antigen (ARIELLE) antibody assay (units/volume)Ordered By: Oz Kincaid on 11-26-2023 Fritz extractable nuclear Ab Qn (S) <0.2 AI 0.0-0.9 [facility] Serum centromere protein B a ntibody assay (units/volume)Ordered By: Oz Kincaid on 11-26-2023 Centromere protein B Ab Qn (S) <0.2 AI 0.0-0.9 [facility] Comment on above: Performed at: - [address] [id number] Director: Yuri Osullivan PhD, Phone: [phone] Serum classic neutrophil cyt oplasmic antibody titer by immunofluorescenceOrdered By: Oz Kincaid on 11-26-2023 Neutrophil cytoplasmic Ab.classic IF (S) [Titer] <1:20 titer Neg:<1:20 [facility] Serum histone IgG antibody a ssay by immunoassay (units/volume)Ordered By: Oz Kincaid on 11-26-2023 Histone IgG IA Qn (S) 0.6 Units 0.0-0.9 [facility] Comment on above: Negative <1.0 Weak P ositive 1.0 - 1.5 Moderate Positive 1.6 - 2.5 Strong Positive >2.5Performed at: [facility] [address] [id number] Director: Christine Pham MD, Phone: [phone] Serum homogeneous pattern an tinuclear antibody (PO) titerOrdered By: Oz Kincaid on 11-26-2023 Homogenous nuclear Ab pattern (S) [Titer] N/A [facility] Serum mitochondria M2 IgG an tibody assay (units/volume)Ordered By: Oz Kincaid on 11-26-2023 Mitochondria M2 IgG Qn (S) <20.0 Units 0.0-20.0 [facility] Comment on above: Negative 0.0 - 20.0 Equivocal 20.1 - 24.9 Positive >24.9Mitochondrial (M2) Antibodies are found in 90-96% ofpatients with primary biliary cirrhosis.Performed at: [facility] [address] [id number] Director: Yuri Osullivan PhD, Phone: [phone] Serum nuclear antibody titer Ordered By: Oz Kincaid on 11-26-2023 Nuclear Ab (S) [Titer] Positive Abnormal . [facility] Comment on above: Negative <1:80 Kev stanley 1:80 Positive >1:80 Serum speckled pattern antin uclear antibody (PO) titerOrdered By: Oz Kincaid on 11-26-2023 Speckled nuclear Ab pattern (S) [Titer] 1:320 High . [facility] Comment on above: ICAP nomenclature: A C-2,4,5,29 Sjogrens Anti-SSA/SSBon 10-29 SS-A/Ro Sjogrens Antibody <0.2 Normal 0.0-0.9 [facility] Comment on above: Performed By: #### A DASIA, CUU #### [address] SS-B/La Sjogrens Antibody <0.2 Normal 0.0-0.9 [facility] Comment on above: Performed By: #### A PORFIRIOUAEARL, CUU #### [address] Aspartate aminotransferase [ Enzymatic activity/volume] in Serum or PlasmaOrdered By: Darrell Ch on 11-15-2023 AST [Catalytic activity/Vol] 45 U/L High 13-39 [facility] Comment on above: Performed By: #### A PORFIRIOUAEARL, CUU #### [address] Basic Metabolic Panelon 10-27 GFR/1.73 sq M.predicted MDRD (S/P/Bld) [Vol rate/Area] mL/min/{1.73_m2} Normal [facility] Comment on above: Performed By: #### A PORFIRIOUAPLUS, CUU #### [place] [address] [place] Calcium [Mass/volume] in Ser um or PlasmaOrdered By: Darrell Ch on 11-15-2023 Calcium [Mass/Vol] 10.7 mg/dL High 8.6-10.3 [facility] Comment on above: Performed By: #### A DDONUAPLUS, CUU #### [facility] [address] [place] [address] [place] Carbon dioxide, total [Moles /volume] in Serum or PlasmaOrdered By: Darrell Ch on 11-15-2023 CO2 [Moles/Vol] 27.7 mmol/L 21.0-31.0 [facility] Comment on above: Performed By: #### A DDONUAPLUS, CUU #### [facility] [address] [place] [address] [place] Chloride [Moles/volume] in S elliot or PlasmaOrdered By: Darrell Ch on 11-15-2023 Chloride [Moles/Vol] 102 mmol/L 98-107 [facility] Comment on above: Performed By: #### A DDONUAPLUS, CUU #### [facility] [address] [place] [address] [place] Creatinine [Mass/volume] in Serum or PlasmaOrdered By: Darrell Ch on 11-15-2023 Creatinine [Mass/Vol] 1.02 mg/dL 0.60-1.20 [facility] Comment on above: Performed By: #### A DDONUAPLUS, CUU #### [facility] [address] [place] [address] [place] Creatinine [Mass/volume] in UrineOrdered By: Angelique Russell on 11-15-2023 Creatinine (U) [Mass/Vol] 123.00 mg/dL [facility] Comment on above: No reference range e stablished Glucose [Mass/volume] in Ser um or PlasmaOrdered By: Darrell Ch on 11-15-2023 Glucose [Mass/Vol] 158 mg/dL High 70-100 [facility] Comment on above: ADA recommended refe rence rangeRandom Glucose Reference Range is dependent on time and content of last meal. Glucose of more than 200 mg/dL in a nonstressed, ambulatory subject supports the diagnosis of Diabetes Mellitus. Result Comment: [place] om Glucose Reference Range is dependent on time and content of last meal. Glucose of more than 200 mg/dL in a nonstressed, ambulatory subject supports the diagnosis of Diabetes Mellitus. ADA recommended reference range Performed By: #### A DDONUAPLUS, CUU #### [address] MicroAlb Creat Ratio,Uon Creatinine, Urine (Random) 123.00 mg/dL Normal [facility] Comment on above: Result Comment: No r eference range established Performed By: #### A DDONUAPLUS, CUU #### [address] Microalbumin/Creatinine Ratio 24.4 mg/g Normal 0.0-30.0 [facility] Comment on above: Result Comment: 30-3 00 mg/g indicates an increased risk for diabetic nephropathy. Greater than 300 mg/g is consistent with clinical nephropathy. (Am. J. Kidney Disease 1995, 25:107) PERFORMED BY: [place] [address] PATHOLOGIST LINE OPERATOR SADAF STANTON M.D. Performed By: #### A DDONUAPLUS, CUU #### [address] Microalbumin [Mass/volume] i n UrineOrdered By: Angelique Russell on 11-15-2023 Albumin DL <= 20 mg/L (U) [Mass/Vol] 3.0 mg/dL High 0.0-1.8 [facility] Comment on above: Performed By: #### A DDONUAPLUS, CUU #### [address] No Panel InformationOrdered By: Darrell Ch on 11-15-2023 Estimated GFR (CKD-EPI) > 60.0 mL/Min [facility] Creatinine Clearance (Chem N/A [facility] Potassium [Moles/volume] in Serum or PlasmaOrdered By: Darrell Ch on 11-15-2023 Potassium [Moles/Vol] 4.1 mmol/L 3.5-5.1 [facility] Comment on above: Performed By: #### A DDONUAPLUS, CUU #### [address] Serum or plasma anion gap de terminationOrdered By: Darrell Ch on 11-15-2023 Anion gap [Moles/Vol] 12.4 mmol/L 6.0-15.0 [facility] Comment on above: Performed By: #### A DASIA, CUU #### [facility] [address] [place] [address] Sodium [Moles/volume] in Ser um or PlasmaOrdered By: Darrell Ch on 11-15-2023 Sodium [Moles/Vol] 138 mmol/L 136-145 [facility] Comment on above: Performed By: #### A DASIA CUU #### [facility] [address] [place] [address] Thyrotropin [Units/volume] i n Serum or PlasmaOrdered By: Darrell Ch on 11-15-2023 TSH Qn 3.39 m[IU]/L 0.45-5.33 [facility] Comment on above: Result Comment: PERF ORMED BY: [place] [address] PATHOLOGIST LINE OPERATOR SADAF STANTON M.D. Performed By: #### A DASIA, CUU #### [address] Urea nitrogen [Mass/volume] in Serum or PlasmaOrdered By: Darrell Ch on 11-15-2023 Urea nitrogen [Mass/Vol] 20 mg/dL 7-25 [facility] Comment on above: Performed By: #### A DASIA, CUU #### [address] Urine microalbumin/creatinin e mass ratioOrdered By: Angelique Russell on 11-15-2023 Albumin/Creatinine DL <= 20 mg/L (U) [Mass ratio] 24.4 mg/g 0.0-30.0 [facility] Comment on above: 30-300 mg/g indicate s an increased risk for diabetic nephropathy. Greater than 300 mg/g is consistent with clinical nephropathy. (Am. J. Kidney Disease 1995, 25:107) No Panel Informationon 11-13 Bedside Glucose 139 [facility] Automated basophil %Ordered By: Chaka Frye on 11-12-2023 Basophils/100 WBC (Bld) 0.5 % . [facility] Comment on above: Performed By: #### G LULS #### Point of Care testing , Automated basophil countOrde red By: Chaka Frye on 11-12-2023 Basophils (Bld) [#/Vol] 0.0 10*3/uL 0.0-0.2 [facility] Comment on above: Result Comment: PERF ORMED BY: [facility] [address] [place] [address] PATHOLOGIST LINE OPERATOR SADAF STANTON M.D. Performed By: #### G LULS #### Point of Care testing , Automated blood monocyte cou ntOrdered By: Chaka Frye on 11-12-2023 Monocytes (Bld) [#/Vol] 0.8 10*3/uL 0.0-0.8 [facility] Comment on above: Performed By: #### G LULS #### Point of Care testing , Automated eosinophil %Ordere d By: Chaka Frye on 11-12-2023 Eosinophils/100 WBC (Bld) 5.2 % . [facility] Comment on above: Performed By: #### G LULS #### Point of Care testing , Automated eosinophil countOr dered By: Chaka Frye on 11-12-2023 Eosinophils (Bld) [#/Vol] 0.4 10*3/uL 0.0-0.45 [facility] Comment on above: Performed By: #### G LULS #### Point of Care testing , Automated monocyte %Ordered By: Chaka Frye on 11-12-2023 Monocytes/100 WBC (Bld) 11.0 % . [facility] Comment on above: Performed By: #### G LULS #### Point of Care testing , Automated neutrophil %Ordere d By: Chaka Frye on 11-12-2023 Neutrophils/100 WBC (Bld) 52.5 % . [facility] Comment on above: Performed By: #### G LULS #### Point of Care testing , Basic Metabolic Panelon 10-27 Creatinine Clr Calc Pharmacy 63.39 Normal [facility] Comment on above: Performed By: #### G LULS #### Point of Care testing , GFR/1.73 sq M.predicted MDRD (S/P/Bld) [Vol rate/Area] mL/min/{1.73_m2} Normal [facility] Comment on above: Performed By: #### G LULS #### Point of Care testing , Calcium [Mass/volume] in Ser um or PlasmaOrdered By: Chaka Frye on 11-12-2023 Calcium [Mass/Vol] 9.5 mg/dL 8.6-10.3 [facility] Comment on above: Performed By: #### G LULS #### Point of Care testing , Capillary blood glucose steve urement by glucometer (mass/volume)Ordered By: Chaka Frye on 11-12-2023 Glucose [Mass/Vol] 137 mg/dL [facility] Comment on above: Random Glucose Refer ence Range is dependent on time and content of last meal. Glucose of more than 200 mg/dL in a nonstressed, ambulatory subject supports the diagnosis of Diabetes Mellitus. Result Comment: [place] Glucose Reference Range is dependent on time and content of last meal. Glucose of more than 200 mg/dL in a nonstressed, ambulatory subject supports the diagnosis of Diabetes Mellitus. PERFORMED BY: [facility] [address] [place] [address] PATHOLOGIST LINE OPERATOR SADAF STANTON M.D. Performed By: #### G LULS #### Point of Care testing , Carbon dioxide, total [Moles /volume] in Serum or PlasmaOrdered By: Chaka Frye on 11-12-2023 CO2 [Moles/Vol] 30.0 mmol/L 21.0-31.0 [facility] Comment on above: Performed By: #### G LULS #### Point of Care testing , Chloride [Moles/volume] in S elliot or PlasmaOrdered By: Chaka Frye on 11-12-2023 Chloride [Moles/Vol] 103 mmol/L 98-107 [facility] Comment on above: Performed By: #### G LULS #### Point of Care testing , Complete Blood Count Auto Di ffon 11-12-2023 Mean Corpuscular HGB Conc 32.8 g/dL Normal 32.0-35.0 [facility] Comment on above: Performed By: #### G LULS #### Point of Care testing , NRBC% 0.1 /100{WBC} Normal 0-0.5 [facility] Comment on above: Performed By: #### G LULS #### Point of Care testing , Creatinine [Mass/volume] in Serum or PlasmaOrdered By: Chaka Frye on 11-12-2023 Creatinine [Mass/Vol] 0.98 mg/dL 0.60-1.20 [facility] Comment on above: Performed By: #### G LULS #### Point of Care testing , ECH echo transthoracicon ECH echo transthoracic [facility] [place] [address] Echocardiogram Signed Patient: Kerry Gay MR#: [id number] [birth year] : 1955 Acct:[id number] Age/Sex: 67 / F ADM Date: 11/10/23 Loc: Room: [address] [place] [address] Type: ADM IN Attending Dr: Chaka Frye MD Ordering Provider: Kirt Renae MD Date of Service: 11/10/23 ECH/ECH echo transthoracic: rule out pulmonary HTN Copies to: MD Darrell Farnsworth MD BSA: 2.0 m2 BP: 123/68 mmHg HR: 66 Reason For Study: rule out pulmonary HTN History: A. Fib.,HTN, HLD, DM, CKD, smoker, family history of CAD Interpretation Summary The left ventricular size, thickness and function are normal Ejection Fraction = 55-60%. Procedure/Quality: A two-dimensional transthoracic echocardiogram with color flow, Doppler and injection of contrast agent Definity was performed. The study was technically fair in quality. Left Ventricle: The left ventricular size, thickness and function are normal. Ejection Fraction = 55-60%. No left ventricular thrombus or mass is seen. Left Atrium: The left atrium appears normal in size. The atrial septum appears normal. Right Atrium: The right atrium appears normal in size. Right Ventricle: The right ventricular size, thickness and function are normal. Aortic Valve: The aortic valve is mildly sclerotic. Mitral Valve: The mitral valve is mildly sclerotic. Tricuspid Valve: The tricuspid valve is normal in structure and function. Pulmonic Valve: The pulmonic valve is not well visualized. Arteries: The aortic root is normal size. The aortic arch was visualized and no abnormalities were seen. Pericardium/Pleura: No pericardial effusion seen. There is no pleural effusion. IVC/Hepatic Veins: The inferior vena cava is normal in size, with a normal collapsibility index. Measurements with Normals IVSd: 0.94 cm (0.7-1.1 cm)LVIDd: 4.9 cm (3.7-5.4 cm) LVPWd: 1.0 cm (0.7-1.1 cm)LVIDs: 4.0 cm (2.3-3.6 cm) LA dimension: 3.7 cm (2.3-4.0 cm)Ao root diam: 2.7 cm(2.0-3.6 cm) asc Aorta Diam: 2.9 cm(2.1-3.4cm) Doppler with Normals LV V1 max: 90.8 cm/sec (0.7-1.7m/s)MV E max mary: 75.4 cm/sec(0.8-1.3m/s) MV A max mary: 70.3 cm/sec(0.0-0.0m/s) MV E/A: 1.1 (<1.5) MMode/2D Measurements Calculations RVDd: 2.9 cm FS: 18.9 % Ao root area: LVOT diam: 2.0 cm TAPSE: 3.0 cm EDV(Teich): 5.8 cm2 LVOT area: 3.1 cm2 RV S Mary: 114.9 ml 18.8 cm/sec ESV(Teich): 70.3 ml EF(Teich): 38.8 % __ LVLd ap4: 7.5 cm SV(MOD-sp4): LAV(MOD-sp4): LA A2 area: 17.5 cm2 EDV(MOD-sp4): 81.5 ml 44.5 ml 128.0 ml LAV(MOD-sp2): LA A4 area: 18.2 cm2 LVLs ap4: 6.4 cm 53.1 ml LA length (vol): ESV(MOD-sp4): 5.7 cm 46.5 ml LA vol: 47.3 ml EF(MOD-sp4): 63.7 % LA vol index: 24.2 ml/m2 Doppler Measurements Calculations MV dec time: 0.31 secMV V2 max: E/E' lat: MV dec slope: 81.0 cm/sec 11.0 MV max P.6 mmHg E/E' med: 246.2 cm/sec2 MV V2 mean: 9.9 48.5 cm/sec MV mean P.1 mmHg MV V2 VTI: 22.9 cm MVA(VTI): 2.4 cm2 __ Ao V2 max: LV V1 max P.6 cm/sec 3.3 mmHg Ao max P.4 mmHg LV V1 mean PG: Ao mean P.9 mmHg 1.6 mmHg Ao V2 mean: LV V1 mean: 105.8 cm/sec 57.7 cm/sec Ao V2 VTI: 31.3 cm LV V1 VTI: 17.8 cm EMILIANA(I,D): 1.8 cm2 EMILIANA(V,D): 1.8 cm2 Transcribed By: SCV Performed At: 11/12/23 1307 Signed By: Darrell Ch MD 11/12/23 1500 Normal [facility] Erythrocyte distribution wid th [Ratio] by Automated countOrdered By: Chaka Frye on 11-12-2023 Erythrocyte distribution width (RBC) [Ratio] 14.0 % 11.9-15.3 [facility] Comment on above: Performed By: #### G LULS #### Point of Care testing , Erythrocytes [#/volume] in B lood by Automated countOrdered By: Chaka Frye on 11-12-2023 RBC (Bld) [#/Vol] 4.54 10*6/uL 3.60-5.00 [facility] Comment on above: Performed By: #### G LULS #### Point of Care testing , Glucose Poct Glucometerson 0 11-12-2023 Glucose [Mass/Vol] 176 mg/dL Normal [facility] Comment on above: Result Comment: [place] om Glucose Reference Range is dependent on time and content of last meal. Glucose of more than 200 mg/dL in a nonstressed, ambulatory subject supports the diagnosis of Diabetes Mellitus. PERFORMED BY: [facility] [address] [place] [address] PATHOLOGIST LINE OPERATOR SADAF STANTON M.D. Performed By: #### G LULS #### Point of Care testing , Glucose [Mass/Vol] 120 mg/dL Normal [facility] Comment on above: Result Comment: [place] om Glucose Reference Range is dependent on time and content of last meal. Glucose of more than 200 mg/dL in a nonstressed, ambulatory subject supports the diagnosis of Diabetes Mellitus. PERFORMED BY: [facility] [address] [facility] [place] [address] PATHOLOGIST LINE OPERATOR SADAF STANTON M.D. Performed By: #### G LULS #### Point of Care testing , Glucose [Mass/volume] in Ser um or PlasmaOrdered By: Chaka Frye on 11-12-2023 Glucose [Mass/Vol] 102 mg/dL High 70-100 [facility] Comment on above: ADA recommended refe rence rangeRandom Glucose Reference Range is dependent on time and content of last meal. Glucose of more than 200 mg/dL in a nonstressed, ambulatory subject supports the diagnosis of Diabetes Mellitus. Result Comment: [place] Glucose Reference Range is dependent on time and content of last meal. Glucose of more than 200 mg/dL in a nonstressed, ambulatory subject supports the diagnosis of Diabetes Mellitus. ADA recommended reference range Performed By: #### G LULS #### Point of Care testing , Hematocrit [Volume Fraction] of Blood by Automated countOrdered By: Chaka Frye on 11-12-2023 Hematocrit (Bld) [Volume fraction] 44.6 % 34.0-46.4 [facility] Comment on above: Performed By: #### G LULS #### Point of Care testing , Hemoglobin [Mass/volume] in BloodOrdered By: Chaka Frye on 11-12-2023 Hemoglobin (Bld) [Mass/Vol] 14.6 g/dL 11.8-15.4 [facility] Comment on above: Performed By: #### G LULS #### Point of Care testing , Leukocytes [#/volume] correc deepika for nucleated erythrocytes in Blood by Automated counOrdered By: Chaka Frye on 11-12-2023 WBC corrected for nucl RBC Auto (Bld) [#/Vol] 7.4 10*3/uL 3.8-11.6 [facility] Leukocytes [#/volume] in Blo od by Automated countOrdered By: Chaka Frye on 11-12-2023 WBC (Bld) [#/Vol] 7.4 10*3/uL 3.8-11.6 [facility] Comment on above: Performed By: #### G LULS #### Point of Care testing , Lymphocytes [#/volume] in Bl ood by Automated countOrdered By: Chaka Frye on 11-12-2023 Lymphocytes (Bld) [#/Vol] 2.3 10*3/uL 1.00-4.8 [facility] Comment on above: Performed By: #### G LULS #### Point of Care testing , Lymphocytes/100 leukocytes i n Blood by Automated countOrdered By: Chaka Frye on 11-12-2023 Lymphocytes/100 WBC (Bld) 30.8 % . [facility] Comment on above: Performed By: #### G LULS #### Point of Care testing , MCH [Entitic mass] by Automa deepika countOrdered By: Chaka Frye on 11-12-2023 MCH (RBC) [Entitic mass] 32.2 pg 24.7-34.3 [facility] Comment on above: Performed By: #### G LULS #### Point of Care testing , MCHC Auto (RBC) [Mass/Vol]Or dered By: Chaka Frye on 11-12-2023 MCHC (RBC) [Mass/Vol] 32.8 g/dL 32.0-35.0 [facility] MCV [Entitic volume] by Auto mated countOrdered By: Chaka Frye on 11-12-2023 MCV (RBC) [Entitic vol] 98.1 fL 80-100 [facility] Comment on above: Performed By: #### G LULS #### Point of Care testing , Magnesium [Mass/volume] in S elliot or PlasmaOrdered By: Chaka Frye on 11-12-2023 Magnesium [Mass/Vol] 1.9 mg/dL 1.9-2.7 [facility] Comment on above: Result Comment: PERF ORMED BY: [facility] [address] [facility] [place] [address] PATHOLOGIST LINE OPERATOR SADAF STANTON M.D. Performed By: #### G LULS #### Point of Care testing , Neutrophils [#/volume] in Bl ood by Automated countOrdered By: Chaka Frye on 11-12-2023 Neutrophils (Bld) [#/Vol] 3.9 10*3/uL 1.8-7.7 [facility] Comment on above: Performed By: #### G LULS #### Point of Care testing , No Panel InformationOrdered By: Chaka Frye on 11-12-2023 Estimated GFR (CKD-EPI) > 60.0 mL/Min [facility] Creatinine Clearance (Chem 63.39 [facility] Nucleated erythrocytes [Pres ence] in Blood by Automated countOrdered By: Chaka Frye on 11-12-2023 Nucleated RBC Auto Ql (Bld) 0.1 /100{WBC} 0-0.5 [facility] Platelet mean volume [Entiti c volume] in Blood by Automated countOrdered By: Chaka Frye on 11-12-2023 Platelet mean volume (Bld) [Entitic vol] 9.1 fL 6.3-10.7 [facility] Comment on above: Performed By: #### G LULS #### Point of Care testing , Platelets [#/volume] in Bloo d by Automated countOrdered By: Chaka Frye on 11-12-2023 Platelets (Bld) [#/Vol] 155 10*3/uL 150-450 [facility] Comment on above: Performed By: #### G LULS #### Point of Care testing , Potassium [Moles/volume] in Serum or PlasmaOrdered By: Chaka Frye on 11-12-2023 Potassium [Moles/Vol] 4.4 mmol/L 3.5-5.1 [facility] Comment on above: Performed By: #### G LULS #### Point of Care testing , Serum or plasma anion gap de terminationOrdered By: Chaka Frye on 11-12-2023 Anion gap [Moles/Vol] 10.4 mmol/L 6.0-15.0 [facility] Comment on above: Performed By: #### G LULS #### Point of Care testing , Sodium [Moles/volume] in Ser um or PlasmaOrdered By: Chaka Frye on 11-12-2023 Sodium [Moles/Vol] 139 mmol/L 136-145 [facility] Comment on above: Performed By: #### G LULS #### Point of Care testing , Urea nitrogen [Mass/volume] in Serum or PlasmaOrdered By: Chaka Frye on 11-12-2023 Urea nitrogen [Mass/Vol] 18 mg/dL 7-25 [facility] Comment on above: Performed By: #### G HERNÁN #### Point of Care testing , A1C with Estimated Average Andre horne 11-11-2023 Glucose [Mass/Vol] 143 mg/dL Normal [facility] Comment on above: Result Comment: PERF ORMED BY: [place] [address] PATHOLOGIST LINE OPERATOR SADAF STANTON M.D. Performed By: #### B 12, LIPID, URMACRERAT, CMP #### [place] [address] [place] Anti-RNPon 11-11-2023 Anti-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 TEACHER 0.2 Normal 0.0-0.9 [facility] Comment on above: Result Comment: PERF ORMED BY: [place] [address] PATHOLOGIST LINE OPERATOR SADAF STANTON M.D. Performed By: #### A DDONUAPLUS, CUU #### [address] Basic Metabolic Panelon 10-27 Anion gap [Moles/Vol] 9.3 mmol/L Normal 6.0-15.0 [facility] Comment on above: Performed By: #### B 12, LIPID, URMACRERAT, CMP #### [place] [address] [place] Calcium [Mass/Vol] 8.9 mg/dL Normal 8.6-10.3 [facility] Comment on above: Performed By: #### B 12, LIPID, URMACRERAT, CMP #### [place] [address] [place] Chloride [Moles/Vol] 106 mmol/L Normal 98-107 [facility] Comment on above: Performed By: #### B 12, LIPID, URMACRERAT, CMP #### [place] [id number] [place] CO2 [Moles/Vol] 28.0 mmol/L Normal 21.0-31.0 [facility] Comment on above: Performed By: #### B 12, LIPID, URMACRERAT, CMP #### [address] Creatinine [Mass/Vol] 1.07 mg/dL Normal 0.60-1.20 [facility] Comment on above: Performed By: #### B 12, LIPID, URMACRERAT, CMP #### [facility] [address] Creatinine Clr Calc Pharmacy 58.06 Normal [facility] Comment on above: Performed By: #### B 12, LIPID, URMACRERAT, CMP #### [place] [address] [place] GFR/1.73 sq M.predicted MDRD (S/P/Bld) [Vol rate/Area] 57.645 mL/min/{1.73_m2} Normal [facility] Comment on above: Performed By: #### B 12, LIPID, URMACRERAT, CMP #### [address] Glucose [Mass/Vol] 119 mg/dL High 70-100 [facility] Comment on above: Result Comment: [facility] Glucose Reference Range is dependent on time and content of last meal. Glucose of more than 200 mg/dL in a nonstressed, ambulatory subject supports the diagnosis of Diabetes Mellitus. ADA recommended reference range Performed By: #### B 12, LIPID, URMACRERAT, CMP #### [address] Potassium [Moles/Vol] 4.3 mmol/L Normal 3.5-5.1 [facility] Comment on above: Performed By: #### B 12, LIPID, URMACRERAT, CMP #### [address] Sodium [Moles/Vol] 139 mmol/L Normal 136-145 [facility] Comment on above: Performed By: #### B 12, LIPID, URMACRERAT, CMP #### [place] [address] Urea nitrogen [Mass/Vol] 14 mg/dL Normal 7-25 [facility] Comment on above: Performed By: #### B 12, LIPID, URMACRERAT, CMP #### [address] Complete Blood Count Auto Di ffon 11-11-2023 Basophils (Bld) [#/Vol] 0.0 10*3/uL Normal 0.0-0.2 [facility] Comment on above: Result Comment: PERF ORMED BY: [place] [address] PATHOLOGIST LINE OPERATOR SADAF STANTON M.D. Performed By: #### B 12, LIPID, URMACRERAT, CMP #### [address] Basophils/100 WBC (Bld) 0.6 % Normal . [facility] Comment on above: Performed By: #### B 12, LIPID, URMACRERAT, CMP #### [address] Eosinophils (Bld) [#/Vol] 0.3 10*3/uL Normal 0.0-0.45 [facility] Comment on above: Performed By: #### B 12, LIPID, URMACRERAT, CMP #### [address] Eosinophils/100 WBC (Bld) 4.4 % Normal . [facility] Comment on above: Performed By: #### B 12, LIPID, URMACRERAT, CMP #### [address] Erythrocyte distribution width (RBC) [Ratio] 13.6 % Normal 11.9-15.3 [facility] Comment on above: Performed By: #### B 12, LIPID, URMACRERAT, CMP #### [address] Hematocrit (Bld) [Volume fraction] 41.6 % Normal 34.0-46.4 [facility] Comment on above: Performed By: #### B 12, LIPID, URMACRERAT, CMP #### [address] Hemoglobin (Bld) [Mass/Vol] 13.9 g/dL Normal 11.8-15.4 [facility] Comment on above: Performed By: #### B 12, LIPID, URMACRERAT, CMP #### [address] Lymphocytes (Bld) [#/Vol] 1.8 10*3/uL Normal 1.00-4.8 [facility] Comment on above: Performed By: #### B 12, LIPID, URMACRERAT, CMP #### [address] Lymphocytes/100 WBC (Bld) 28.5 % Normal . [facility] Comment on above: Performed By: #### B 12, LIPID, URMACRERAT, CMP #### [address] MCH (RBC) [Entitic mass] 32.5 pg Normal 24.7-34.3 [facility] Comment on above: Performed By: #### B 12, LIPID, URMACRERAT, CMP #### [address] MCV (RBC) [Entitic vol] 97.1 fL Normal 80-100 [facility] Comment on above: Performed By: #### B 12, LIPID, URMACRERAT, CMP #### [address] Mean Corpuscular HGB Conc 33.5 g/dL Normal 32.0-35.0 [facility] Comment on above: Performed By: #### B 12, LIPID, URMACRERAT, CMP #### [address] Monocytes (Bld) [#/Vol] 0.7 10*3/uL Normal 0.0-0.8 [facility] Comment on above: Performed By: #### B 12, LIPID, URMACRERAT, CMP #### [address] Monocytes/100 WBC (Bld) 10.9 % Normal . [facility] Comment on above: Performed By: #### B 12, LIPID, URMACRERAT, CMP #### [address] Neutrophils (Bld) [#/Vol] 3.6 10*3/uL Normal 1.8-7.7 [facility] Comment on above: Performed By: #### B 12, LIPID, URMACRERAT, CMP #### [address] Neutrophils/100 WBC (Bld) 55.6 % Normal . [facility] Comment on above: Performed By: #### B 12, LIPID, URMACRERAT, CMP #### [address] NRBC% 0.0 /100{WBC} Normal 0-0.5 [facility] Comment on above: Performed By: #### B 12, LIPID, URMACRERAT, CMP #### [address] Platelet mean volume (Bld) [Entitic vol] 9.3 fL Normal 6.3-10.7 [facility] Comment on above: Performed By: #### B 12, LIPID, URMACRERAT, CMP #### [address] Platelets (Bld) [#/Vol] 133 10*3/uL Low 150-450 [facility] Comment on above: Performed By: #### B 12, LIPID, URMACRERAT, CMP #### [address] RBC (Bld) [#/Vol] 4.28 10*6/uL Normal 3.60-5.00 [facility] Comment on above: Performed By: #### B 12, LIPID, URMACRERAT, CMP #### [address] WBC (Bld) [#/Vol] 6.4 10*3/uL Normal 3.8-11.6 [facility] Comment on above: Performed By: #### B 12, LIPID, URMACRERAT, CMP #### [address] Glucose Poct Glucometerson 0 11-11-2023 Glucose [Mass/Vol] 141 mg/dL Normal [facility] Comment on above: Result Comment: [place] om Glucose Reference Range is dependent on time and content of last meal. Glucose of more than 200 mg/dL in a nonstressed, ambulatory subject supports the diagnosis of Diabetes Mellitus. PERFORMED BY: [place] [address] PATHOLOGIST LINE OPERATOR SADAF STANTON M.D. Performed By: #### A PORFIRIOUAEARL, CUU #### [address] Glucose [Mass/Vol] 142 mg/dL Normal [facility] Comment on above: Result Comment: [place] om Glucose Reference Range is dependent on time and content of last meal. Glucose of more than 200 mg/dL in a nonstressed, ambulatory subject supports the diagnosis of Diabetes Mellitus. PERFORMED BY: [place] [address] PATHOLOGIST LINE OPERATOR SADAF STANTON M.D. Performed By: #### G LULS #### Point of Care testing , Glucose [Mass/Vol] 154 mg/dL Normal [facility] Comment on above: Result Comment: [place] om Glucose Reference Range is dependent on time and content of last meal. Glucose of more than 200 mg/dL in a nonstressed, ambulatory subject supports the diagnosis of Diabetes Mellitus. PERFORMED BY: [place] [address] PATHOLOGIST LINE OPERATOR SADAF STANTON M.D. Performed By: #### A DASIA, CUU #### [address] Glucose [Mass/Vol] 117 mg/dL Normal [facility] Comment on above: Result Comment: [facility] Glucose Reference Range is dependent on time and content of last meal. Glucose of more than 200 mg/dL in a nonstressed, ambulatory subject supports the diagnosis of Diabetes Mellitus. PERFORMED BY: [place] [address] PATHOLOGIST LINE OPERATOR SADAF STANTON M.D. Performed By: #### B 12, LIPID, URMACRERAT, CMP #### [address] Glucose mean value [Mass/vol ume] in Blood Estimated from glycated hemoglobinOrdered By: Jluis Campos on 11-11-2023 Average glucose Estimated from glycated hemoglobin (Bld) [Mass/Vol] 143 mg/dL [facility] Hemoglobin A1c percentageOrd ered By: Jluis Campos on 11-11-2023 HbA1c (Bld) [Mass fraction] 6.6 % High 4.3-5.6 [facility] Comment on above: Increased risk for d iabetes: 5.7 - 6.4diabetes: >6.4glycemic control for adults with diabetes: <7.0 Result Comment: Incr eased risk for diabetes: 5.7 - 6.4 diabetes: >6.4 glycemic control for adults with diabetes: <7.0 Performed By: #### B 12, LIPID, URMACRERAT, CMP #### [address] SUSHMA-1 Antibodyon 11-11-2023 SUSHMA-1 Antibody <0.2 Normal 0.0-0.9 [facility] Comment on above: Result Comment: Perf ormed at: - [facility] [address] [id number] Bag Adjuster: Yuri Osullivan PhD, Phone: [phone] Performed By: #### A DASIA, CUU #### [address] MR head/brain wo/w conon MR head/brain wo/w con [facility] [place] [address] [place] [address] MRI Report Signed Patient: Kerry Gay MR#: [id number] 19 : 1955 Acct:[id number] Age/Sex: 67 / F ADM Date: 11/10/23 Loc: 4N Room: [address] [place] [address] Type: ADM IN Attending Dr: Chaka Frye MD Copies to: MD Kirt Mar MD Ordering Provider: Kirt Renae MD Date of Service: 11/11/23 MR/MR head/brain wo/w con: Bilateral lower extremity weakness MR head/brain wo/w con 11/10/2023 10:09 AM SIGN AND SYMPTOMS: Generalized weakness, recent cardioversion PROTOCOL: Multiplanar multisequence MR images of the brain were obtained with and without IV contrast CONTRAST: 17 mL of intravenous ProHance COMPARISON: 11/10/2023 FINDINGS: Extra axial spaces: There is age-related cortical atrophy. Hemorrhage: None. Ventricular system: Within normal limits. Basal cisterns: Within normal limits and not effaced. Cerebral parenchyma: Periventricular and subcortical white matter T2 and FLAIR hyperintense foci are noted consistent with chronic microvascular ischemic change. Midline shift: None.. Cerebellum: Within normal limits. Brainstem: Within normal limits. OTHER: Calvarium: Normal marrow signal. Vascular system: Satisfactory flow voids within the anterior and posterior circulation. Visualized Paranasal sinuses: Within normal limits. Visualized Orbits: Within normal limits. Visualized upper cervical spine: Within normal limits. Sella and skull base: Within normal limits. MR/MR head/brain wo/w con IMPRESSION: No acute intracranial pathology or abnormal postcontrast. There is diffuse age-related cortical atrophy. Periventricular and subcortical white matter T2 and FLAIR hyperintense foci are noted consistent with chronic microvascular ischemic change. Impression dictated by: Oz Bowling M.D.11/11/2023 2:49 PM Dictation Location: [place] [address] Transcribed By: [facility] 11/11/23 8606 Dictated By: Oz Bowling II, MD 11/11/23 1443 Signed By: 11/11/23 1449 Normal [facility] Magnesiumon 11-11-2023 Magnesium [Mass/Vol] 1.8 mg/dL Low 1.9-2.7 [facility] Comment on above: Performed By: #### B 12, LIPID, URMACRERAT, CMP #### [facility] [address] [place] [address] No Panel InformationOrdered By: Kirt Renae on 11-11-2023 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 TEACHER Antibody 0.2 AI 0.0-0.9 [facility] SS-A/Ro Sjogrens Antibodyon 11-11-2023 SS-A/Ro Sjogrens Antibody <0.2 Normal 0.0-0.9 [facility] Comment on above: Performed By: #### A DDONUAPLUS, CUU #### [facility] [address] [place] [address] SS-B/La Sjogrens Antibodyon 11-11-2023 SS-B/La Sjogrens Antibody <0.2 Normal 0.0-0.9 [facility] Comment on above: Performed By: #### A DDONUAPLUS, CUU #### [facility] [address] [place] [address] Serum Sushma-1 extractable nucle ar antibody assay (units/volume)Ordered By: Kirt Renae on 11-11-2023 Sushma-1 extractable nuclear Ab Qn (S) <0.2 AI 0.0-0.9 [facility] Comment on above: Performed at: [facility] [address] [id number] Director: Yuri Osullivan PhD, Phone: [phone] Serum Sjogrens syndrome-A ex tractable nuclear antibody assay (units/volume)Ordered By: Kirt Renae on 11-11-2023 Sjogrens syndrome-A extractable nuclear Ab Qn (S) <0.2 AI 0.0-0.9 [facility] Serum Sjogrens syndrome-B ex tractable nuclear antibody assay (units/volume)Ordered By: Kirt Renae on 11-11-2023 Sjogrens syndrome-B extractable nuclear Ab Qn (S) <0.2 AI 0.0-0.9 [facility] Serum or plasma thyroglobuli n antibody assay (units/volume)Ordered By: Kirt Renae on 11-11-2023 Thyroglobulin Ab Qn [IU]/mL 0.0-0.9 [facility] Comment on above: Thyroglobulin Antibo dy measured by PollGroundMethodologyIt should be noted that the presence of thyroglobulinantibodies may not be pathogenic nor diagnostic, especiallyat very low levels. The assay stapling machine operator has found thatfour percent of individuals without evidence of thyroiddisease or autoimmunity will have positive TgAb levels upto 4 IU/mL.Performed at: [facility] [address] [id number] Director: Yuri Osullivan PhD, Phone: [phone] Serum or plasma thyroperoxid ase antibody assay (units/volume)Ordered By: Kirt Renae on 11-11-2023 TPO Ab Qn [IU]/mL 0-34 [facility] Thyroid Antibodies TPO+Tg Ab on 11-11-2023 Antithyroglobulin Ab <1.0 Normal 0.0-0.9 [facility] Comment on above: Result Comment: Thyr oglobulin Antibody measured by [employer] It should be noted that the presence of thyroglobulin antibodies may not be pathogenic nor diagnostic, especially at very low levels. The assay stapling machine operator has found that four percent of individuals without evidence of thyroid disease or autoimmunity will have positive TgAb levels up to 4 IU/mL. Performed at: [facility] [address] [id number] Bag Adjuster: Yuri Osullivan PhD, Phone: [phone] PERFORMED BY: [place] [address] [place] [address] PATHOLOGIST LINE OPERATOR SADAF STANTON M.D. Performed By: #### G LULS #### Point of Care testing , Thyroid Peroxidase Antibodies <9 Normal 0-34 [facility] Comment on above: Performed By: #### G LULS #### Point of Care testing , Thyroxine (T4) free [Mass/vo lume] in Serum or PlasmaOrdered By: Kirt Renae on 11-11-2023 Free T4 [Mass/Vol] 0.83 ng/dL 0.61-1.12 [facility] Comment on above: Result Comment: PERF ORMED BY: [place] [address] PATHOLOGIST LINE OPERATOR SADAF STANTON M.D. Performed By: #### B 12, LIPID, URMACRERAT, CMP #### [facility] [address] [place] [address] Triiodothyronine (T3) Freeon 11-11-2023 Triiodothyronine (T3) Free 2.60 pg/mL Normal 2.50-3.90 [facility] Comment on above: Result Comment: PERF ORMED BY: [place] [address] PATHOLOGIST LINE OPERATOR SADAF STANTON M.D. Performed By: #### G LULS #### Point of Care testing , Triiodothyronine (T3) Free [ Mass/volume] in Serum or PlasmaOrdered By: Kirt Renae on 11-11-2023 Free T3 [Mass/Vol] 2.60 pg/mL 2.50-3.90 [facility] Alanine aminotransferase [En zymatic activity/volume] in Serum or PlasmaOrdered By: Rl Villavicencio on 11-10-2023 ALT [Catalytic activity/Vol] 19 U/L 7-52 [facility] Comment on above: Performed By: #### L YTES #### [facility] [address] [place] [address] [place] Albumin [Mass/volume] in Ser um or Plasma by Bromocresol green (BCG) dye binding methoOrdered By: Rl Villavicencio on 11-10-2023 Albumin BCG dye [Mass/Vol] 4.2 g/dL 3.5-5.7 [facility] Alkaline phosphatase [Enzyma tic activity/volume] in Serum or PlasmaOrdered By: Rl Villavicencio on 11-10-2023 ALP [Catalytic activity/Vol] 60 U/L 34-104 [facility] Comment on above: Performed By: #### L YTES #### [address] Aspartate aminotransferase [ Enzymatic activity/volume] in Serum or PlasmaOrdered By: Rl Villavicencio on 11-10-2023 AST [Catalytic activity/Vol] 29 U/L 13-39 [facility] Comment on above: Performed By: #### L YTES #### [address] Automated basophil %Ordered By: Rl Villavicencio on 11-10-2023 Basophils/100 WBC (Bld) 0.9 % Normal . [facility] Comment on above: Performed By: #### L YTES #### [address] Automated basophil countOrde red By: Rl Villavicencio on 11-10-2023 Basophils (Bld) [#/Vol] 0.1 10*3/uL Normal 0.0-0.2 [facility] Comment on above: Result Comment: PERF ORMED BY: [place] [address] PATHOLOGIST LINE OPERATOR SADAF STANTON M.D. Performed By: #### L YTES #### [address] Automated blood monocyte cou ntOrdered By: Rl Villavicencio on 11-10-2023 Monocytes (Bld) [#/Vol] 0.7 10*3/uL Normal 0.0-0.8 [facility] Comment on above: Performed By: #### L YTES #### [address] Automated eosinophil %Ordere d By: Rl Villavicencio on 11-10-2023 Eosinophils/100 WBC (Bld) 3.7 % Normal . [facility] Comment on above: Performed By: #### L YTES #### [address] Automated eosinophil countOr dered By: Rl Villavicencio on 11-10-2023 Eosinophils (Bld) [#/Vol] 0.3 10*3/uL Normal 0.0-0.45 [facility] Comment on above: Performed By: #### L YTES #### [facility] [address] Automated monocyte %Ordered By: Rl Villavicencio on 11-10-2023 Monocytes/100 WBC (Bld) 8.2 % Normal . [facility] Comment on above: Performed By: #### L YTES #### [address] Automated neutrophil %Ordere d By: Rl Villavicencio on 11-10-2023 Neutrophils/100 WBC (Bld) 61.2 % Normal . [facility] Comment on above: Performed By: #### L YTES #### [address] Bacteria [Presence] in Urine by AutomatedOrdered By: Rl Villavicencio on 11-10-2023 Bacteria Auto Ql (U) 1+ [HPF] High None Seen [facility] Bilirubin Test strip Ql (U)O rdered By: Rl Villavicencio on 11-10-2023 Bilirubin Ql (U) Negative Negative [facility] Bilirubin.total [Mass/volume ] in Serum or PlasmaOrdered By: Rl Villavicencio on 11-10-2023 Bilirubin [Mass/Vol] 0.4 mg/dL 0.3-1.0 [facility] Comment on above: Performed By: #### L YTES #### [facility] [address] [place] [address] C reactive protein [Mass/vol ume] in Serum or PlasmaOrdered By: Kirt Renae on 11-10-2023 CRP [Mass/Vol] < 0.5 mg/dL 0.0-0.5 [facility] C-Reactive Proteinon 024 CRP [Mass/Vol] mg/L Normal 0.0-0.5 [facility] Comment on above: Result Comment: PERF ORMED BY: [address] [place] [address] PATHOLOGIST LINE OPERATOR SADAF STANTON M.D. Performed By: #### A DDONUASUSAN ELLIOTT #### [address] head/brain wo conon 11-09 CT head/brain wo con [facility] [place] [address] [place] [address] CT Scan Report Signed Patient: Kerry Gay MR#: [id number] 19 : 1955 Acct:[id number] Age/Sex: 67 / F ADM Date: 11/10/23 Loc: Room: [address] [place] [address] Type: ADM IN Attending Dr: Kirt Renae MD Copies to: Kirt Renae MD Ordering Provider: Kirt Renae MD Date of Service: 11/10/23 CT/CT head/brain wo con: pt had cardioversion around [address] head/brain wo con 11/10/2023 12:01 PM SIGNS AND SYMPTOMS: Weakness, tremors, upper extremity weakness TECHNIQUE:Multi-detector CT axial slices of the brain were obtained without IV contrast. CT was performed with one or more of the following dose reduction techniques: Automated exposure control, adjustment of the mA and/or kV according to patient size, or use of iterative reconstruction technique. COMPARISON: None. FINDINGS: There is no shift of the midline structures, acute intracranial bleeding, mass effects, or evidence of acute ischemia. There is mild diffuse age-related cortical atrophy. Atherosclerotic changes are noted in the intracranial segments of the internal carotid arteries. The ventricular system is normal in size. The brainstem and the cerebellum are unremarkable. The visualized intraorbital contents, the visualized paranasal sinuses, and the infratemporal soft tissues show no acute abnormality. The osseous structures in the skull base and the calvarium show no abnormality. CT/CT head/brain wo con IMPRESSION: No acute intrapelvic pathology. Mild age-related neurodegenerative changes are noted as above. Impression dictated by: Oz Bowling M.D.11/10/2023 1:15 PM Dictation Location: [place] [address] Transcribed By: AMY 11/10/23 1315 Dictated By: Oz Bowling II, MD 11/10/23 1314 Signed By: 11/10/23 1315 Normal [facility] Calcium [Mass/volume] in Ser um or PlasmaOrdered By: Rl Villavicencio on 11-10-2023 Calcium [Mass/Vol] 9.6 mg/dL Normal 8.6-10.3 [facility] Comment on above: Performed By: #### L YTES #### [address] Carbon dioxide, total [Moles /volume] in Serum or PlasmaOrdered By: Rl Villavicencio on 11-10-2023 CO2 [Moles/Vol] 25.4 mmol/L Normal 21.0-31.0 [facility] Comment on above: Performed By: #### L YTES #### [address] Chloride [Moles/volume] in S elliot or PlasmaOrdered By: Rl Villavicencio on 11-10-2023 Chloride [Moles/Vol] 105 mmol/L Normal 98-107 [facility] Comment on above: Performed By: #### L YTES #### [address] Color of Urine by AutoOrdere d By: Rl Villavicencio on 11-10-2023 Color (U) Light-yellow Yellow [facility] Comment on above: Order Comment: Name Collection Type:: Clean-Voided Midstream Performed By: #### A DDONUAPLUS, CUU #### [address] Complete Blood Count Auto Di ffon 11-10-2023 Mean Corpuscular HGB Conc 33.3 g/dL Normal 32.0-35.0 [facility] Comment on above: Performed By: #### L YTES #### [place] [address] [place] Monocytes/100 WBC (Bld) 19.74 % Normal 0.00-20.00 [facility] Comment on above: Performed By: #### L YTES #### [facility] [address] NRBC% 0.1 /100{WBC} Normal 0-0.5 [facility] Comment on above: Performed By: #### L YTES #### [facility] [address] Comprehensive Metabolic Pane babita 11-10-2023 Albumin [Mass/Vol] 4.2 g/dL Normal 3.5-5.7 [facility] Comment on above: Performed By: #### L YTES #### [place] [address] [place] Creatinine Clr Calc Pharmacy 66.28 Normal [facility] Comment on above: Performed By: #### L YTES #### [place] [address] [place] GFR/1.73 sq M.predicted MDRD (S/P/Bld) [Vol rate/Area] mL/min/{1.73_m2} Normal [facility] Comment on above: Performed By: #### L YTES #### [address] Creatine kinase [Enzymatic a ctivity/volume] in Serum or PlasmaOrdered By: Rl Villavicencio on 11-10-2023 CK [Catalytic activity/Vol] 69 U/L 30-223 [facility] Comment on above: Result Comment: PERF ORMED BY: [place] [address] PATHOLOGIST LINE OPERATOR SADAF STANTON M.D. Performed By: #### L YTES #### [address] Creatinine [Mass/volume] in Serum or PlasmaOrdered By: Rl Villavicencio on 11-10-2023 Creatinine [Mass/Vol] 0.93 mg/dL Normal 0.60-1.20 [facility] Comment on above: Performed By: #### L YTES #### [place] [address] [place] Dipstick and Microscopicon 0 11-10-2023 Bacteria,Urine 1+ High None Seen [facility] Comment on above: Order Comment: Name Collection Type:: Clean-Voided Midstream Performed By: #### A DDONUAPLUS, CUU #### [place] [id number] [place] Bilirubin,Urine Negative Normal Negative [facility] Comment on above: Order Comment: Name Collection Type:: Clean-Voided Midstream Performed By: #### A DDONUAPLUS, CUU #### [place] [id number] [place] Glucose Ql (U) 1000 mg/dL High Normal [facility] Comment on above: Order Comment: Name Collection Type:: Clean-Voided Midstream Performed By: #### A DDONUAPLUS, CUU #### [place] [id number] [place] Hyaline Casts,Urine None Normal 0-8 [facility] Comment on above: Order Comment: Name Collection Type:: Clean-Voided Midstream Result Comment: PERF ORMED BY: [place] [address] PATHOLOGIST LINE OPERATOR SADAF STANTON M.D. Performed By: #### A DDONUAPLUS, CUU #### [place] [id number] [place] Nitrite,Urine Negative Normal Negative [facility] Comment on above: Order Comment: Name Collection Type:: Clean-Voided Midstream Performed By: #### A DDONUAPLUS, CUU #### [place] [id number] [place] Occult Blood,Urine Negative Normal Negative [facility] Comment on above: Order Comment: Name Collection Type:: Clean-Voided Midstream Result Comment: PERF ORMED BY: [place] [address] PATHOLOGIST LINE OPERATOR SADAF STANTON M.D. Performed By: #### A DDONUAPLUS, CUU #### [place] [id number] [place] Protein,Urine Negative Normal Negative [facility] Comment on above: Order Comment: Name Collection Type:: Clean-Voided Midstream Performed By: #### A DDONUAPLUS, CUU #### [place] [address] [place] RBC,Urine 5-9 High 0-4 [facility] Comment on above: Order Comment: Name Collection Type:: Clean-Voided Midstream Performed By: #### A DDONUAPLUS, CUU #### [address] Specificy [place],Urine 1.007 Normal 1.00 1-1.03 0 [facility] Comment on above: Order Comment: Name Collection Type:: Clean-Voided Midstream Performed By: #### A DDONUAPLUS, CUU #### [place] [address] [place] Squamous Epithelial Cell,Urine 5-9 High 0-2 [facility] Comment on above: Order Comment: Name Collection Type:: Clean-Voided Midstream Performed By: #### A DDONUAPLUS, CUU #### [place] [address] [place] Urobilinogen,Urine Normal Normal Normal [facility] Comment on above: Order Comment: Name Collection Type:: Clean-Voided Midstream Performed By: #### A DDONUAPLUS, CUU #### [place] [address] [place] WBC CLUMP, Urine Occasional High None Seen [facility] Comment on above: Order Comment: Name Collection Type:: Clean-Voided Midstream Performed By: #### A DDONUAPLUS, CUU #### [place] [address] [place] WBC,Urine 20-49 High 0-4 [facility] Comment on above: Order Comment: Name Collection Type:: Clean-Voided Midstream Performed By: #### A DDONUAPLUS, CUU #### [place] [address] [place] Epithelial cells.squamous [# /area] in Urine sediment by Automated countOrdered By: Rl Villavicencio on 11-10-2023 Epithelial cells.squamous Auto (Urine sed) [#/Area] 5-9 [HPF] High 0-2 [facility] Erythrocyte Sedimentation Ra abner 11-10-2023 ESR (Bld) [Velocity] 40 mm/h High 0-29 [facility] Comment on above: Result Comment: PERF ORMED BY: [place] [address] PATHOLOGIST LINE OPERATOR SADAF STANTON M.D. Performed By: #### A DDONUAPLUS, CUU #### [address] Erythrocyte distribution wid th [Ratio] by Automated countOrdered By: Rl Villavicencio on 11-10-2023 Erythrocyte distribution width (RBC) [Ratio] 13.5 % Normal 11.9-15.3 [facility] Comment on above: Performed By: #### L YTES #### [facility] [address] [place] [address] Erythrocyte sedimentation ra te by Photometric methodOrdered By: Kirt Renae on 11-10-2023 ESR Photometric method (Bld) [Velocity] 40 mm/hr High 0-29 [facility] Erythrocytes [#/area] in Uri ne sediment by Automated countOrdered By: Rl Villavicencio on 11-10-2023 RBC Auto (Urine sed) [#/Area] 5-9 [HPF] High 0-4 [facility] Erythrocytes [#/volume] in B lood by Automated countOrdered By: Rl Villavicencio on 11-10-2023 RBC (Bld) [#/Vol] 4.59 10*6/uL Normal 3.60-5.00 [facility] Comment on above: Performed By: #### L YTES #### [address] Folate [Mass/volume] in Seru m or PlasmaOrdered By: Kirt Renae on 11-10-2023 Folate [Mass/Vol] 19.6 ng/mL >5.9 [facility] Comment on above: Folate reference ran ge: >5.9 ng/mlThe WHO technical consultation on folate and vitamin [id number] has determined that folate concentrations lessthan 4 ng/ml are considered deficient. Free T4 (Free Thyroxine)on 0 11-10-2023 Free T4 [Mass/Vol] 0.82 ng/dL Normal 0.61-1.12 [facility] Comment on above: Performed By: #### L H, LACTATE PYRUVAT, HOMOCYS PL, NATASHA SERUM, RA, PO, ZINC,WB, WEST [place]ANK, MORTEZA, CERULOP, RPR W RFX, LYME AB wRFX, SPE, ALDOLASE, NATASHA,URINE, VITB6, METH, UPE RAND #### [facility] , #### ALT, CK, AST, T4F, HSCRP, A1C WTH eA, ESR, TSH3, [id number] #### [facility] [address] [place], [place] [id number] [facility] Glucose Poct Glucometerson 0 11-10-2023 Glucose [Mass/Vol] 146 mg/dL Normal [facility] Comment on above: Result Comment: [facility] Glucose Reference Range is dependent on time and content of last meal. Glucose of more than 200 mg/dL in a nonstressed, ambulatory subject supports the diagnosis of Diabetes Mellitus. PERFORMED BY: [place] [address] PATHOLOGIST LINE OPERATOR SADAF STANTON M.D. Performed By: #### G LULOIDA #### Point of Care testing , Commemt1 Glu2: Cleaned Meter Normal [facility] Comment on above: Result Comment: PERF ORMED BY: [place] [address] PATHOLOGIST LINE OPERATOR SADAF STANTON M.D. Performed By: #### A DDONUAPLUS, CUU #### [address] [address] [facility] Glucose [Mass/Vol] 140 mg/dL Normal [facility] Comment on above: Result Comment: [place] om Glucose Reference Range is dependent on time and content of last meal. Glucose of more than 200 mg/dL in a nonstressed, ambulatory subject supports the diagnosis of Diabetes Mellitus. Performed By: #### A DDONUAPLUS, CUU #### [facility] [address] Commemt1 Glu2: Cleaned Meter Normal [facility] Comment on above: Result Comment: PERF ORMED BY: [place] [address] PATHOLOGIST LINE OPERATOR SADAF STANTON M.D. Performed By: #### A DDONUAPLUS, CUU #### [place] [address] [place] Glucose [Mass/Vol] 157 mg/dL Normal [facility] Comment on above: Result Comment: [place] om Glucose Reference Range is dependent on time and content of last meal. Glucose of more than 200 mg/dL in a nonstressed, ambulatory subject supports the diagnosis of Diabetes Mellitus. Performed By: #### A DDONUAPLUS, CUU #### [address] Commemt1 Glu2: Cleaned Meter Normal [facility] Comment on above: Result Comment: PERF ORMED BY: [place] [address] PATHOLOGIST LINE OPERATOR SADAF STANTON M.D. Performed By: #### L YTES #### [place] [address] [place] Glucose [Mass/Vol] 101 mg/dL Normal [facility] Comment on above: Result Comment: [place] om Glucose Reference Range is dependent on time and content of last meal. Glucose of more than 200 mg/dL in a nonstressed, ambulatory subject supports the diagnosis of Diabetes Mellitus. Performed By: #### L YTES #### [place] [address] [place] Glucose [Mass/volume] in Ser um or PlasmaOrdered By: Rl Villavicencio on 11-10-2023 Glucose [Mass/Vol] 95 mg/dL Normal 70-100 [facility] Comment on above: ADA recommended refe rence rangeRandom Glucose Reference Range is dependent on time and content of last meal. Glucose of more than 200 mg/dL in a nonstressed, ambulatory subject supports the diagnosis of Diabetes Mellitus. Result Comment: [place] om Glucose Reference Range is dependent on time and content of last meal. Glucose of more than 200 mg/dL in a nonstressed, ambulatory subject supports the diagnosis of Diabetes Mellitus. ADA recommended reference range Performed By: #### L YTES #### [facility] [address] [place] [address] [place] Glucose [Mass/volume] in Uri ne by Test stripOrdered By: Rl Villavicencio on 11-10-2023 Glucose Test strip (U) [Mass/Vol] 1000 mg/dL High Normal [facility] Hematocrit [Volume Fraction] of Blood by Automated countOrdered By: Rl Villavicencio on 11-10-2023 Hematocrit (Bld) [Volume fraction] 44.9 % Normal 34.0-46.4 [facility] Comment on above: Performed By: #### L YTES #### [address] Hemoglobin Test strip Ql (U) Ordered By: Rl Villavicencio on 11-10-2023 Hemoglobin Ql (U) Negative Negative [facility] Hemoglobin [Mass/volume] in BloodOrdered By: Rl Villavicencio on 11-10-2023 Hemoglobin (Bld) [Mass/Vol] 15.0 g/dL Normal 11.8-15.4 [facility] Comment on above: Performed By: #### L YTES #### [place] [address] [place] Hyaline casts [#/area] in Ur ine sediment by Automated countOrdered By: Rl Villavicencio on 11-10-2023 Hyaline casts Auto (Urine sed) [#/Area] None [LPF] 0-8 [facility] Ketones [Presence] in Urine by Test stripOrdered By: Rl Villavicencio on 11-10-2023 Ketones Ql (U) Negative Negative [facility] Comment on above: Order Comment: Name Collection Type:: Clean-Voided Midstream Performed By: #### A DDONUAPLUS, CUU #### [facility] [address] [place] [address] [place] Leukocyte clumps [Presence] in Urine by AutomatedOrdered By: Rl Villavicencio on 11-10-2023 Leukocyte clumps Auto Ql (U) Occasional [LPF] High None Seen [facility] Leukocyte esterase [Presence ] in Urine by Test stripOrdered By: Rl Villavicencio on 11-10-2023 Leukocyte esterase Test strip Ql (U) 4+ High Negative [facility] Comment on above: Order Comment: Name Collection Type:: Clean-Voided Midstream Performed By: #### A DDONUAPLUS, CUU #### [place] [address] [place] Leukocytes [#/area] in Urine sediment by Automated countOrdered By: Rl Villavicencio on 11-10-2023 WBC Auto (Urine sed) [#/Area] 20-49 [HPF] High 0-4 [facility] Leukocytes [#/volume] correc deepika for nucleated erythrocytes in Blood by Automated counOrdered By: Rl Villavicencio on 11-10-2023 WBC corrected for nucl RBC Auto (Bld) [#/Vol] 8.5 10*3/uL 3.8-11.6 [facility] Leukocytes [#/volume] in Blo od by Automated countOrdered By: Rl Villavicencio on 11-10-2023 WBC (Bld) [#/Vol] 8.5 10*3/uL Normal 3.8-11.6 [facility] Comment on above: Performed By: #### L YTES #### [facility] [address] [place] [address] [place] Lymphocytes [#/volume] in Bl ood by Automated countOrdered By: Rl Villavicencio on 11-10-2023 Lymphocytes (Bld) [#/Vol] 2.2 10*3/uL Normal 1.00-4.8 [facility] Comment on above: Performed By: #### L YTES #### [facility] [address] [place] [address] [place] Lymphocytes/100 leukocytes i n Blood by Automated countOrdered By: Rl Villavicencio on 11-10-2023 Lymphocytes/100 WBC (Bld) 26.0 % Normal . [facility] Comment on above: Performed By: #### L YTES #### [facility] [address] [place] [address] MCH [Entitic mass] by Automa deepika countOrdered By: Rl Villavicencio on 11-10-2023 MCH (RBC) [Entitic mass] 32.6 pg Normal 24.7-34.3 [facility] Comment on above: Performed By: #### L YTES #### [facility] [address] [place] [address] MCHC Auto (RBC) [Mass/Vol]Or dered By: Rl Villavicencio on 11-10-2023 MCHC (RBC) [Mass/Vol] 33.3 g/dL 32.0-35.0 [facility] MCV [Entitic volume] by Auto mated countOrdered By: Rl Villavicencio on 11-10-2023 MCV (RBC) [Entitic vol] 97.8 fL Normal 80-100 [facility] Comment on above: Performed By: #### L YTES #### [facility] [address] [place] [address] Magnesium [Mass/volume] in S elliot or PlasmaOrdered By: Rl Villavicencio on 11-10-2023 Magnesium [Mass/Vol] 1.7 mg/dL Low 1.9-2.7 [facility] Comment on above: Result Comment: PERF ORMED BY: [place] [address] PATHOLOGIST LINE OPERATOR SADAF STANTON M.D. Performed By: #### L YTES #### [facility] [address] [place] [address] Monocyte distribution width [Entitic volume] in Blood by AutomatedOrdered By: Rl Villavicencio on 11-10-2023 Monocyte distribution width Auto (Bld) [Entitic vol] 19.74 % 0.00-20.00 [facility] Neutrophils [#/volume] in Bl ood by Automated countOrdered By: Rl Villavicencio on 11-10-2023 Neutrophils (Bld) [#/Vol] 5.2 10*3/uL Normal 1.8-7.7 [facility] Comment on above: Performed By: #### L ANA #### [facility] [address] Nitrite Test strip Ql (U)Ord ered By: Rl Villavicencio on 11-10-2023 Nitrite Ql (U) Negative Negative [facility] No Panel InformationOrdered By: Kirt Renae on 11-10-2023 Bedside Glucose Comment Glu2: cleaned meter [facility] No Panel InformationOrdered By: Rl Villavicencio on 11-10-2023 Estimated GFR (CKD-EPI) > 60.0 mL/Min [facility] Creatinine Clearance (Chem 66.28 [facility] Nucleated erythrocytes [Pres ence] in Blood by Automated countOrdered By: Rl Villavicencio on 11-10-2023 Nucleated RBC Auto Ql (Bld) 0.1 /100{WBC} 0-0.5 [facility] Platelet mean volume [Entiti c volume] in Blood by Automated countOrdered By: Rl Villavicencio on 11-10-2023 Platelet mean volume (Bld) [Entitic vol] 8.7 fL Normal 6.3-10.7 [facility] Comment on above: Performed By: #### L ANA #### [facility] [address] [place] [address] [place] Platelets [#/volume] in Bloo d by Automated countOrdered By: Rl Villavicencio on 11-10-2023 Platelets (Bld) [#/Vol] 149 10*3/uL Low 150-450 [facility] Comment on above: Performed By: #### L ANA #### [facility] [address] [place] [address] [place] Potassium [Moles/volume] in Serum or PlasmaOrdered By: Rl Villavicencio on 11-10-2023 Potassium [Moles/Vol] 4.6 mmol/L Normal 3.5-5.1 [facility] Comment on above: Hemolysis is present at a level that could interfere with the result.Contact lab if redraw is required Result Comment: Hemo lysis is present at a level that could interfere with the result. Contact lab if redraw is required Performed By: #### L YTES #### [address] Protein Test strip (U) [Mass /Vol]Ordered By: Rl Villavicencio on 11-10-2023 Protein (U) [Mass/Vol] Negative Negative [facility] Protein [Mass/volume] in Ser um or PlasmaOrdered By: Rl Villavicencio on 11-10-2023 Protein [Mass/Vol] 7.1 g/dL 6.4-8.9 [facility] Comment on above: Performed By: #### L YTES #### [address] Redraw Folateon 11-10-2023 Redraw Folate 19.6 ng/mL Normal >5.9 [facility] Comment on above: Order Comment: SPECI MEN HEMOLYZED. NOTIFIED MANSOOR Result Comment: Meera te reference range: >5.9 ng/ml The WHO technical consultation on folate and vitamin b12 deficiencies has determined that folate concentrations less than 4 ng/ml are considered deficient. PERFORMED BY: [place] [address] PATHOLOGIST LINE OPERATOR SADAF STANTON M.D. Performed By: #### L YTES #### [address] Serum globulin measurement b y calculation (mass/volume)Ordered By: Rl Villavicencio on 11-10-2023 Globulin (S) [Mass/Vol] 2.9 g/dL [facility] Comment on above: Performed By: #### L YTES #### [address] Serum or plasma albumin/glob ulin mass ratioOrdered By: Rl Villavicencio on 11-10-2023 Albumin/Globulin [Mass ratio] 1.4 {ratio} [facility] Comment on above: Performed By: #### L YTES #### [address] Serum or plasma anion gap de terminationOrdered By: Rl Villavicencio on 11-10-2023 Anion gap [Moles/Vol] 11.2 mmol/L Normal 6.0-15.0 [facility] Comment on above: Performed By: #### L YTES #### [address] Sodium [Moles/volume] in Ser um or PlasmaOrdered By: Rl Villavicencio on 11-10-2023 Sodium [Moles/Vol] 137 mmol/L Normal 136-145 [facility] Comment on above: Performed By: #### L YTES #### [address] Specific gravity Test strip (U) [Rel density]Ordered By: Rl Villavicencio on 11-10-2023 Specific gravity (U) [Rel density] 1.007 1.001-1.03 0 [facility] Thyrotropin [Units/volume] i n Serum or PlasmaOrdered By: Jluis Campos on 11-10-2023 TSH Qn 5.73 m[IU]/L High 0.45-5.33 [facility] Comment on above: Performed By: #### L H, LACTATE PYRUVAT, HOMOCYS PL, NATASHA SERUM, RA, PO, ZINC,WB, WEST TANK, MORTEZA, CERULOP, RPR W RFX, LYME AB wRFX, SPE, ALDOLASE, NATASHA,URINE, VITB6, METH, UPE RAND #### [facility] , #### ALT, CK, AST, T4F, HSCRP, A1C WTH eA, ESR, TSH3, [id number] #### [place] [address] [place] Urea nitrogen [Mass/volume] in Serum or PlasmaOrdered By: Rl Villavicencio on 11-10-2023 Urea nitrogen [Mass/Vol] 14 mg/dL Normal 7-25 [facility] Comment on above: Performed By: #### L YTES #### [place] [id number] [place] Urine Cultureon 11-10-2023 Bacteria identified Cx Nom (U) >100,000 colonies/ml mixed bacterial skin contaminants 2 Days PERFORMED BY: [place] [address] PATHOLOGIST LINE OPERATOR SADAF STANTON M.D. Normal [facility] Comment on above: Performed By: #### A DASIA, CUU #### [address] Urine appearanceOrdered By: Rl Villavicencio on 11-10-2023 Appearance (U) Clear Clear [facility] Comment on above: Order Comment: Name Collection Type:: Clean-Voided Midstream Performed By: #### A DASIA, CUU #### [address] Urine culture routineOrdered By: Rl Villavicencio on 11-10-2023 Bacteria identified Cx Nom (U) 2 Days [facility] Urobilinogen Test strip (U) [Mass/Vol]Ordered By: Rl Villavicencio on 11-10-2023 Urobilinogen (U) [Mass/Vol] Normal mg/dL Normal [facility] Vit. B12/Folate Profileon Folate Normal >5.9 [facility] Comment on above: Result Comment: Spec imen hemolyzed, redraw requested Folate reference range: >5.9 ng/ml The WHO technical consultation on folate and vitamin b12 deficiencies has determined that folate concentrations less than 4 ng/ml are considered deficient. Performed By: #### L H, LACTATE PYRUVAT, HOMOCYS PL, NATASHA SERUM, RA, PO, ZINC,WB, WEST TANK, MORTEZA, CERULOP, RPR W RFX, LYME AB wRFX, SPE, ALDOLASE, NATASHA,URINE, VITB6, METH, UPE RAND #### [facility] , #### ALT, CK, AST, T4F, HSCRP, A1C WTH eA, ESR, TSH3, [id number] #### [address] Vitamin B12 Normal 180-914 [facility] Comment on above: Result Comment: Spec imen hemolyzed, redraw requested Performed By: #### L H, LACTATE PYRUVAT, HOMOCYS PL, NATASHA SERUM, RA, PO, ZINC,WB, WEST TANK, MORTEZA, CERULOP, RPR W RFX, LYME AB wRFX, SPE, ALDOLASE, NATASHA,URINE, VITB6, METH, UPE RAND #### [facility] , #### ALT, CK, AST, T4F, HSCRP, A1C WTH eA, ESR, TSH3, [id number] #### [facility] [address] Vitamin B12 ser/plasOrdered By: Kirt Renae on 11-10-2023 Cobalamin (Vitamin B12) [Mass/Vol] 306 pg/mL 180-914 [facility] Comment on above: Order Comment: SPECI MEN HEMOLYZED. NOTIFIED MANSOOR Performed By: #### L YTES #### [facility] [address] [place], [place] [id number] [facility] Vitamin D 25 Hydroxy Totalon 11-10-2023 Vitamin D 25 Hydroxy Total 61.3 ng/mL Normal 30-100 [facility] Comment on above: Result Comment: Hemo lysis is present at a level that could interfere with the result. Contact lab if redraw is required VITAMIN D STATUS 25(OH)VITAMIN D RANGE (ng/mL) Deficient <20 Insufficient 20 to <30 Sufficient 30 to 100 Reference: Sandra MF,Felisha NC, Leon SHERWOOD, et al. Evaluation,treatment, and prevention of vitamin D deficiency; an Endocrine Society clinical practice guideline. JCEM. 2010; 96(7):1911-30. PERFORMED BY: [address] [place] [address] PATHOLOGIST LINE OPERATOR SADAF STANTON M.D. Performed By: #### L H, LACTATE PYRUVAT, HOMOCYS PL, NATASHA SERUM, RA, PO, ZINC,WB, WEST TANK, MORTEZA, CERULOP, RPR W RFX, LYME AB wRFX, SPE, ALDOLASE, NATASHA,URINE, VITB6, METH, UPE RAND #### [facility] , #### ALT, CK, AST, T4F, HSCRP, A1C WTH eA, ESR, TSH3, [id number] #### [facility] [address] [place] [address] [facility] Vitamin D+Metabolites [Mass/ volume] in Serum or PlasmaOrdered By: Jluis Campos on 11-10-2023 Vitamin D+Metabolites [Mass/Vol] 61.3 ng/mL 30-100 [facility] Comment on above: Hemolysis is present at a level that could interfere with the result.Contact lab if redraw is requiredVITAMIN D STATUS 25(OH)VITAMIN D RANGE (ng/mL) Deficient <20 Insufficient 20 to <30Sufficient 30 to 100Reference: Sandra MEYER,Felisha SCANLON, Leon SHERWOOD, et al. Evaluation,treatment, and prevention of vitamin D deficiency; an Endocrine Society clinical practice guideline. JCEM. 2010; 96(7):1911-30. pH of Urine by Test stripOrd ered By: Rl Villavicencio on 11-10-2023 pH (U) 6.0 [pH] 5.0-9.0 [facility] Comment on above: Order Comment: Name Collection Type:: Clean-Voided Midstream Performed By: #### A DDONUAPLUS, CUU #### [facility] [address] [place] [id number] [facility] Capillary blood glucose steve urement by glucometer (mass/volume)Ordered By: OSORIO WHITE on 11-09-2023 Glucose [Mass/Vol] 139 mg/dL Normal [facility] Comment on above: Random Glucose Refer ence Range is dependent on time and content of last meal. Glucose of more than 200 mg/dL in a nonstressed, ambulatory subject supports the diagnosis of Diabetes Mellitus. Result Comment: [place] Glucose Reference Range is dependent on time and content of last meal. Glucose of more than 200 mg/dL in a nonstressed, ambulatory subject supports the diagnosis of Diabetes Mellitus. PERFORMED BY: [facility] [address] [facility]. [place] [id number] PATHOLOGIST LINE OPERATOR SADAF STANTON M.D. Performed By: #### G HERNÁN #### Point of Care testing , ECG 12 lead ECGon 11-09-2023 ECG 12 lead ECG [facility] [place] [address] [place] [address] Electrocardiograph Report Signed Patient: Kerry Gay MR#: [id number] [birth year] : 1955 Acct:[id number] Age/Sex: 67 / F ADM Date: 11/10/23 Loc: Room: 5C2849-1 Type: ADM IN Attending Dr: Jluis Campos DO Ordering Provider: Rl Villavicencio DO Date of Service: 11/09/23 ECG/ECG 12 lead ECG: Weakness Copies to: Test Reason : Blood Pressure : */* mmHG Vent. Rate : 58 BPM Atrial Rate : 58 BPM P-R Int : 204 ms QRS Dur : 88 ms QT Int : 474 ms P-R-T Axes : 65 54 47 degrees QTcB Int : 465 ms Sinus bradycardia Otherwise normal ECG When compared with ECG of 05-Nov-2023 13:27, premature atrial complexes are no longer present Confirmed by RL VILLAVICENCIO DO ([id number]) on 11/10/2023 6:01:00 AM Referred By: Electronically Signed By: RL VILLAVICENCIO DO Transcribed By: MUS Signed By Rl Villavicencio DO 0601 Normal [facility] Carbon dioxide, total [Moles /volume] in Serum or PlasmaOrdered By: Darrell Ch on 11-05-2023 CO2 [Moles/Vol] 28.6 mmol/L 21.0-31.0 [facility] Comment on above: Performed By: #### L YTES #### [facility] [address] [place], [place] [id number] [place] Chloride [Moles/volume] in S elliot or PlasmaOrdered By: Darrell Ch on 11-05-2023 Chloride [Moles/Vol] 104 mmol/L 98-107 [facility] Comment on above: Performed By: #### L YTES #### [facility] [address] [place], [place] [address] [facility] ECG 12 lead ECGon 11-05-2023 ECG 12 lead ECG [facility] [place] [address] Electrocardiograph Report Signed Patient: Kerry Gay MR#: [id number] [birth year] : 1955 Acct:[id number] Age/Sex: 67 / F ADM Date: 11/05/23 Loc: EL Room: Type: [facility] Attending Dr: Darrell Ch MD Ordering Provider: Darrell Ch MD Date of Service: 11/05/2301/21/1216 ECG/ECG 12 lead ECG: Pre-cardioversion rhythm assessment Copies to: Test Reason : Blood Pressure : / mmHG Vent. Rate : 059 BPM Atrial Rate : 182 BPM P-R Int : 000 ms QRS Dur : 092 ms QT Int : 444 ms P-R-T Axes : 000 062 063 degrees QTc Int : 439 ms Atrial fibrillation with slow ventricular response Abnormal ECG When compared with ECG of 12-SEP-2023 14:27, Atrial fibrillation has replaced Atrial flutter Vent. rate has decreased BY 77 BPM Confirmed by KIANNA VARGAS [facility], RIC ([id number]) on 11/05/2023 4:10:35 PM Referred By: Darrell Ch Electronically Signed By:RIC HUTCHISON MD [facility] Transcribed By: [facility] Signed By Ric Hutchison MD, [facility] 11/05/23 1610 Normal [facility] ECG post procedureon 024 ECG post procedure [facility] [place] [address] Electrocardiograph Report Signed Patient: Kerry Gay MR#: [id number] [birth year] : 1955 Acct:[id number] Age/Sex: 67 / F ADM Date: 11/05/23 Loc: EL Room: Type: [facility] Attending Dr: Darrell Ch MD Ordering Provider: Darrell Ch MD Date of Service: 11/05/23/ ECG/ECG post procedure: aflutter Copies to: Test Reason : Blood Pressure : 128/60 mmHG Vent. Rate : 54 BPM Atrial Rate : 54 BPM P-R Int : 212 ms QRS Dur : 94 ms QT Int : 466 ms P-R-T Axes : 59 66 68 degrees QTcB Int : 441 ms Sinus bradycardia with 1st degree AV block with premature atrial complexes Otherwise normal ECG When compared with ECG of 05-NOV-2023 12:15, (Unconfirmed) Sinus rhythm has replaced Atrial fibrillation Confirmed by KIANNA VARGAS [facility], RIC ([id number]) on 11/06/2023 3:39:35 PM Referred By: Darrell Ch Electronically Signed By: RIC HUTCHISON MD [facility] Transcribed By: MUS Signed By Ric Hutchison MD, [facility] 11/06/23 8899 Normal [facility] Potassium [Moles/volume] in Serum or PlasmaOrdered By: Darrell Ch on 11-05-2023 Potassium [Moles/Vol] 4.6 mmol/L 3.5-5.1 [facility] Comment on above: Performed By: #### L YTES #### [address] Serum or plasma anion gap de terminationOrdered By: Darrell Ch on 11-05-2023 Anion gap [Moles/Vol] 11.0 mmol/L 6.0-15.0 [facility] Comment on above: Result Comment: PERF ORMED BY: [place] [address] PATHOLOGIST LINE OPERATOR SADAF STANTON M.D. Performed By: #### L YTES #### [address] Sodium [Moles/volume] in Ser um or PlasmaOrdered By: Darrell Ch on 11-05-2023 Sodium [Moles/Vol] 139 mmol/L 136-145 [facility] Comment on above: Performed By: #### L YTES #### [facility] [address] [place] [address] A1C with Estimated Average G evelynarlette 10-30-2023 Glucose [Mass/Vol] 143 mg/dL Normal [facility] Comment on above: Result Comment: PERF ORMED BY: [facility] [address] [place] [address] PATHOLOGIST LINE OPERATOR SADAF STANTON M.D. Performed By: #### A DASIA, SUSAN #### [facility] [address] [place] [id number] [facility] PO Antinuclear Antibodieson 10-30-2023 Antinuclear Abs, IFA Positive Critically abnormal . [facility] Comment on above: Result Comment: Nega tive <1:80 Borderline 1:80 Positive >1:80 Performed By: #### G LULS #### Point of Care testing , Note 1 Normal . [facility] Comment on above: Result Comment: Gayatri kaufman Potential Disease Association Homogeneous Systemic Lupus Erythematosus, Drug Induced Systemic Lupus Erythematosus, Chronic Autoimmune hepatitis, Juvenile Idiopathic Arthritis Speckled Sjogren Syndrome, Systemic Lupus Erythematosus, Subacute Cutaneous Lupus, Lupus, Congenital Heart Block, Mixed Connective Tissue Disease, Scleroderma-diffuse, Scleroderma-Autoimmune Myositis Overlap Syndrome, Systemic Lupus Xoxjideriggcq-Pkvnigjhmqf-Gvidnfsfab Myositis Overlap Syndrome, Systemic Autoimmune Rheumatic Disease, Undifferentiated Connective Tissue Disease Nucleolar Systemic Sclerosis, Scleroderma-Autoimmune Myositis Overlap Syndrome, Sjogren Syndrome, Raynaud phenomenon, Pulmonary Arterial Hypertension, Systemic Autoimmune Rheumatic Disease, Cancer Centromere Scleroderma-CREST, Limited Cutaneous SSc, Raynaud's Phenomenon, Primary Biliary Cholangitis Nuclear Dot Primary Biliary Cholangitis Nuclear Primary Biliary Cholangitis, Autoimmune Membrane Hepatitis/Liver disease, Systemic Autoimmune Rheumatic Disease, Autoimmune Cytopenias, Linear Scleroderma, Antiphospholipid Syndrome Performed at: [facility] [address] [id number] Bag Adjuster: Christine Pham MD, Phone: [phone] Performed at: [facility] [address] [id number] Bag Adjuster: Yuri Osullivan PhD, Phone: [phone] Pattern Potential Disease Association Homogeneous Systemic Lupus Erythematosus, Drug Induced Systemic Lupus Erythematosus, Chronic Autoimmune hepatitis, Juvenile Idiopathic Arthritis Speckled Sjogren Syndrome, Systemic Lupus Erythematosus, Subacute Cutaneous Lupus, Lupus, Congenital Heart Block, Mixed Connective Tissue Disease, Scleroderma-diffuse, Scleroderma-Autoimmune Myositis Overlap Syndrome, Systemic Lupus Mubezzkqunzea-Veavxglokbx-Abqnyfukfg Myositis Overlap Syndrome, Systemic Autoimmune Rheumatic Disease, Undifferentiated Connective Tissue Disease Nucleolar Systemic Sclerosis, Scleroderma-Autoimmune Myositis Overlap Syndrome, Sjogren Syndrome, Raynaud phenomenon, Pulmonary Arterial Hypertension, Systemic Autoimmune Rheumatic Disease, Cancer Centromere Scleroderma-CREST, Limited Cutaneous SSc, Raynaud's Phenomenon, Primary Biliary Cholangitis Nuclear Dot Primary Biliary Cholangitis Nuclear Primary Biliary Cholangitis, Autoimmune Membrane Hepatitis/Liver disease, Systemic Autoimmune Rheumatic Disease, Autoimmune Cytopenias, Linear Scleroderma, Antiphospholipid Syndrome Performed at: [address] [id number] Bag Adjuster: Yuri Osullivan PhD, Phone: [phone] Performed at: [facility] [id number] Bag Adjuster: Christine Pham MD, Phone: [phone] --- 11/06/23 1236 --- PO IFA Note 1 previously reported as: Pattern Potential Disease Association Homogeneous Systemic Lupus Erythematosus, Drug Induced Systemic Lupus Erythematosus, Chronic Autoimmune hepatitis, Juvenile Idiopathic Arthritis Speckled Sjogren Syndrome, Systemic Lupus Erythematosus, Subacute Cutaneous Lupus, Lupus, Congenital Heart Block, Mixed Connective Tissue Disease, Scleroderma-diffuse, Scleroderma-Autoimmune Myositis Overlap Syndrome, Systemic Lupus Touqffdniuddx-Wpfocgpvmoj-Crsgkjoxfh Myositis Overlap Syndrome, Systemic Autoimmune Rheumatic Disease, Undifferentiated Connective Tissue Disease Nucleolar Systemic Sclerosis, Scleroderma-Autoimmune Myositis Overlap Syndrome, Sjogren Syndrome, Raynaud phenomenon, Pulmonary Arterial Hypertension, Systemic Autoimmune Rheumatic Disease, Cancer Centromere Scleroderma-CREST, Limited Cutaneous SSc, Raynaud's Phenomenon, Primary Biliary Cholangitis (more content not included)... Performed By: #### G LULS #### Point of Care testing , Speckled Pattern 1:80 Normal . [facility] Comment on above: Result Comment: [facility] nomenclature: AC-2,4,5,29 Performed By: #### G LULS #### Point of Care testing , Alanine aminotransferase [En zymatic activity/volume] in Serum or PlasmaOrdered By: Oz Kincaid on 10-30-2023 ALT [Catalytic activity/Vol] 23 U/L 7-52 [facility] Comment on above: Performed By: #### A DASIA, CUU #### [address] Albumin [Mass/volume] in Ser um or PlasmaOrdered By: Oz Kincaid on 10-30-2023 Albumin [Mass/Vol] 4.2 g/dL 2.9-4.4 [facility] Comment on above: Performed By: #### B 12, LIPID, URMACRERAT, CMP #### [address] Albumin/Protein.total in 24 hour Urine by ElectrophoresisOrdered By: Oz Kincaid on 10-30-2023 Albumin Elph (24H U) [Mass fraction] 35.7 % . [facility] Aldolaseon 10-30-2023 Aldolase 5.0 U/L Normal 3.3-10.3 [facility] Comment on above: Result Comment: Perf ormed at: - [facility] [id number] Bag Adjuster: Yuri Osullivan PhD, Phone: [phone] PERFORMED BY: [place] [address] PATHOLOGIST LINE OPERATOR SADAF STANTON M.D. Performed By: #### A DASIA, CUU #### [address] Alpha tocopherol [Mass/volum e] in Serum or PlasmaOrdered By: Oz Kincaid on 10-30-2023 Alpha tocopherol [Mass/Vol] 8.7 mg/L Low 9.0-29.0 [facility] Comment on above: This test was develo ped and its performance characteristicsdetermined by [facility]. It has not been cleared orapproved by the Food and Drug Administration. Aspartate aminotransferase [ Enzymatic activity/volume] in Serum or PlasmaOrdered By: Oz Kincaid on 10-30-2023 AST [Catalytic activity/Vol] 26 U/L 13-39 [facility] Comment on above: Performed By: #### A SUSAN FORMAN #### [facility] [address] Borrelia burgdorferi Ab [Int erpretation] in SerumOrdered By: Oz Kincaid on 10-30-2023 B. burgdorferi Ab (S) [Interp] N/A [facility] Borrelia burgdorferi IgG Ab [Presence] in Serum or Plasma by ImmunoassayOrdered By: Oz Kincaid on 10-30-2023 B. burgdorferi IgG IA Ql N/A [facility] Borrelia burgdorferi IgG+IgM Ab [Presence] in Serum by ImmunoassayOrdered By: Oz Kincaid on 10-30-2023 B. burgdorferi IgG+IgM IA Ql (S) Negative Negative [facility] Comment on above: Lyme antibodies not detected. Reflex testing is notindicated.No laboratory evidence of infection with B. burgdorferi(Lyme disease). Negative results may occur in patientsrecently infected (less than or equal to 14 days) with B.burgdorferi. If recent infection is suspected, repeattesting on a new sample collected in 7 to 14 days isrecommended.Performed at: [facility] [id number] Director: Yuri Osullivan PhD, Phone: [phone] Lyme antibodies not detected. Reflex testing is notindicated.No laboratory evidence of infection with B. burgdorferi(Lyme disease). Negative results may occur in patientsrecently infected (less than or equal to 14 days) with B.burgdorferi. If recent infection is suspected, repeattesting on a new sample collected in 7 to 14 days isrecommended.Performed at: [facility] [id number] Director: Yuri Osullivan PhD, Phone: [phone] Lyme antibodies not detected. Reflex testing is notindicated.No laboratory evidence of infection with B. burgdorferi(Lyme disease). Negative results may occur in patientsrecently infected (less than or equal to 14 days) with B.burgdorferi. If recent infection is suspected, repeattesting on a new sample collected in 7 to 14 days isrecommended. --- 11/06/23 1236 ---Lyme Total Ab previously reported as: Negative Lyme antibodies not detected. Reflex testing is notindicated.No laboratory evidence of infection with B. burgdorferi(Lyme disease). Negative results may occur in patientsrecently infected (less than or equal to 14 days) with B.burgdorferi. If recent infection is suspected, repeattesting on a new sample collected in 7 to 14 days isrecommended.Performed at: [facility] [address] [place], [place] [id number] Director: Yuri Osullivan PhD, Phone: [phone] Borrelia burgdorferi IgM Ab [Presence] in Serum or Plasma by ImmunoassayOrdered By: Oz Kincaid on 10-30-2023 B. burgdorferi IgM IA Ql N/A [facility] C reactive protein [Mass/vol ume] in Serum or Plasma by High sensitivity methodOrdered By: Oz Kincaid on 10-30-2023 CRP High sensitivity method [Mass/Vol] 2.2 mg/L High 0.0-0.9 [facility] Comment on above: Cardiovascular Risk Classification (AHA/CDC)hsCRP < 1.0 mg/l low relative risk for CVDhsCRP 1.0-3.0 mg/l average relative risk for CVDhsCRP > 3.0 mg/l high relative risk for CVDhsCRP > 7.5 mg/l active inflammation*Two results two weeks apart and averaged provide a morestable estimate of hsCRP level.*hsCRP levels > 7.5 mg/l may suggest infection that canlimit the use of this marker for estimation of CVD risk. CT biopsyOrdered By: Oz gutierrez on 10-30-2023 CT biopsy 5.0 U/L 3.3-10.3 [facility] Comment on above: Performed at: [facility] [address] [id number] Director: Yuri Osullivan PhD, Phone: [phone] Ceruloplasminon 10-30-2023 Ceruloplasmin 30.1 mg/dL Normal 19.0-39.0 [facility] Comment on above: Result Comment: Perf ormed at: [facility] [place] [address] [place], [place] [id number] Bag Adjuster: Yuri Osullivan PhD, Phone: [phone] PERFORMED BY: [place] [address] PATHOLOGIST LINE OPERATOR SADAF STANTON M.D. Performed By: #### A DASIA, CUU #### [facility] [address] [place] [address] Creatine kinase [Enzymatic a ctivity/volume] in Serum or PlasmaOrdered By: Oz Kincaid on 10-30-2023 CK [Catalytic activity/Vol] 46 U/L 30-223 [facility] Comment on above: Result Comment: PERF ORMED BY: [place] [address] PATHOLOGIST LINE OPERATOR SADAF STANTON M.D. Performed By: #### L H, LACTATE PYRUVAT, HOMOCYS PL, NATASHA SERUM, RA, PO, ZINC,WB, WEST TANK, MORTEZA, CERULOP, RPR W RFX, LYME AB wRFX, SPE, ALDOLASE, NATASHA,URINE, VITB6, METH, UPE RAND #### [facility] , #### ALT, CK, AST, T4F, HSCRP, A1C WTH eA, ESR, TSH3, [id number] #### [facility] [address] [place] [address] Erythrocyte Sedimentation Ra abner 10-30-2023 ESR (Bld) [Velocity] 26 mm/h Normal 0-29 [facility] Comment on above: Result Comment: PERF ORMED BY: [place] [address] PATHOLOGIST LINE OPERATOR SADAF STANTON M.D. Performed By: #### A DASIA, CUU #### [facility] [address] [place] [address] Erythrocyte sedimentation ra te by Photometric methodOrdered By: Oz Kincaid on 10-30-2023 ESR Photometric method (Bld) [Velocity] 26 mm/hr 0-29 [facility] Folate [Mass/volume] in Seru m or PlasmaOrdered By: Oz Kincaid on 10-30-2023 Folate [Mass/Vol] 34.0 ng/mL >5.9 [facility] Comment on above: Folate reference ran ge: >5.9 ng/mlThe WHO technical consultation on folate and vitamin [id number] has determined that folate concentrations lessthan 4 ng/ml are considered deficient. Gamma globulin/Protein.total in 24 hour Urine by ElectrophoresisOrdered By: Oz Kincaid on 10-30-2023 Gamma globulin Elph (24H U) [Mass fraction] 23.2 % . [facility] Gamma-tocopherol measurement (mass/volume)Ordered By: Oz Kincaid on 10-30-2023 Gamma tocopherol [Mass/Vol] 0.7 mg/L 0.5-4.9 [facility] Comment on above: This test was develo ped and its performance characteristicsdetermined by [facility]. It has not been cleared orapproved by the Food and Drug Administration.Reference intervals for alpha and gamma-tocopheroldetermined from National Health and Nutrition ExaminationSurvey, 5843-6525. Individuals with alpha-tocopherol levelsless than 5.0 mg/L are considered vitamin E deficient. Glucose mean value [Mass/vol ume] in Blood Estimated from glycated hemoglobinOrdered By: Oz Kincaid on 10-30-2023 Average glucose Estimated from glycated hemoglobin (Bld) [Mass/Vol] 143 mg/dL [facility] Hemoglobin A1c percentageOrd ered By: Oz Kincaid on 10-30-2023 HbA1c (Bld) [Mass fraction] 6.6 % High 4.3-5.6 [facility] Comment on above: Increased risk for d iabetes: 5.7 - 6.4diabetes: >6.4glycemic control for adults with diabetes: <7.0 Result Comment: Incr eased risk for diabetes: 5.7 - 6.4 diabetes: >6.4 glycemic control for adults with diabetes: <7.0 Performed By: #### A DDONUAEARL, CUU #### [address] High Sensitive CRPon 024 High Sensitive CRP 2.2 mg/L High 0.0-0.9 [facility] Comment on above: Result Comment: Card iovascular Risk Classification (AHA/CDC) hsCRP < 1.0 mg/l low relative risk for CVD hsCRP 1.0-3.0 mg/l average relative risk for CVD hsCRP > 3.0 mg/l high relative risk for CVD hsCRP > 7.5 mg/l active inflammation* Two results two weeks apart and averaged provide a more stable estimate of hsCRP level. *hsCRP levels > 7.5 mg/l may suggest infection that can limit the use of this marker for estimation of CVD risk. PERFORMED BY: [place] [address] PATHOLOGIST LINE OPERATOR SADAF STANTON M.D. Performed By: #### A DASIA, SUSAN #### [address] Homocysteine, Plasma/Serumon 10-30-2023 Homocysteine, Plasma/Serum 20.7 umol/L High 0.0-17.2 [facility] Comment on above: Result Comment: Perf ormed at: CB - [facility] [place] [address] [id number] Bag Adjuster: Yuri Osullivan PhD, Phone: [phone] Performed By: #### G HERNÁN #### Point of Care testing , IgA [Mass/volume] in Serum o r PlasmaOrdered By: Oz Kincaid on 10-30-2023 IgA [Mass/Vol] 265 mg/dL 87-352 [facility] IgG [Mass/volume] in Serum o r PlasmaOrdered By: Oz Kincaid on 10-30-2023 IgG [Mass/Vol] 1034 mg/dL [phone] [facility] IgM [Mass/volume] in Serum o r PlasmaOrdered By: Oz Kincaid on 10-30-2023 IgM [Mass/Vol] 48 mg/dL 26-217 [facility] Comment on above: Performed at: CB - [facility] [id number] [place], [place] [id number] Director: Yuri Osullivan PhD, Phone: [phone] Immunofixation for UrineOrde red By: Oz Kincaid on 10-30-2023 Interpretation Immunofixation (U) [Interp] See comment . [facility] Comment on above: No monoclonality det ected.Performed at: [address] [id number] Director: Yuri Osullivan PhD, Phone: [phone] Immunofixation, (NATASHA), Urine on 10-30-2023 Immunofixation, (NATASHA), Urine Normal . [facility] Comment on above: Result Comment: No m onoclonality detected. Performed at: [address] [id number] Bag Adjuster: Yuri Osullivan PhD, Phone: [phone] Performed By: #### G LULS #### Point of Care testing , Immunofixation,Serumon 10-29 Immunofixation, Serum Normal . [facility] Comment on above: Result Comment: No m onoclonality detected. Performed By: #### G LULS #### Point of Care testing , Immunoglobulin A, Serum 265 mg/dL Normal 87-352 [facility] Comment on above: Performed By: #### G LULS #### Point of Care testing , Immunoglobulin G 1034 mg/dL Normal 586-1602 [facility] Comment on above: Performed By: #### G LULS #### Point of Care testing , Immunoglobulin M, Serum 48 mg/dL Normal 26-217 [facility] Comment on above: Result Comment: Perf ormed at: [address] [id number] Bag Adjuster: Yuri Osullivan PhD, Phone: [phone] Performed By: #### G LULS #### Point of Care testing , Lactate and Pyruvateon 10-29 Lactic Acid, Plasma Normal . [facility] Comment on above: Result Comment: Test not performed. Supernatant is required. CONTACTED YOUR FACILity on 11-05-2023 Performed By: #### B 12, LIPID, URMACRERAT, CMP #### [address] Pyruvic Acid, Blood Normal . [facility] Comment on above: Result Comment: Test not performed PERFORMED BY: [address] [place] [address] PATHOLOGIST LINE OPERATOR SADAF STANTON M.D. Performed By: #### B 12, LIPID, URMACRERAT, CMP #### [facility] [address] Luteinizing Hormoneon 2023 Luteinizing Hormone 60.4 m[iU]/mL High 7.7-58.5 [facility] Comment on above: Result Comment: Adul t Female Range Follicular phase 2.4 - 12.6 Ovulation phase 14.0 - 95.6 Luteal phase 1.0 - 11.4 Postmenopausal 7.7 - 58.5 Performed By: #### G LULS #### Point of Care testing , Lyme, Total Ab with Reflexon 10-30-2023 Lyme Total Antibody Negative Normal Negative [facility] Comment on above: Result Comment: Lyme antibodies not detected. Reflex testing is not indicated. No laboratory evidence of infection with B. burgdorferi (Lyme disease). Negative results may occur in patients recently infected (less than or equal to 14 days) with B. burgdorferi. If recent infection is suspected, repeat testing on a new sample collected in 7 to 14 days is recommended. Performed at: [facility] [id number] Bag Adjuster: Yuri Osullivan PhD, Phone: [phone] Lyme antibodies not detected. Reflex testing is not indicated. No laboratory evidence of infection with B. burgdorferi (Lyme disease). Negative results may occur in patients recently infected (less than or equal to 14 days) with B. burgdorferi. If recent infection is suspected, repeat testing on a new sample collected in 7 to 14 days is recommended. --- 11/06/23 1236 --- Lyme Total Ab previously reported as: Negative Lyme antibodies not detected. Reflex testing is not indicated. No laboratory evidence of infection with B. burgdorferi (Lyme disease). Negative results may occur in patients recently infected (less than or equal to 14 days) with B. burgdorferi. If recent infection is suspected, repeat testing on a new sample collected in 7 to 14 days is recommended. Performed at: [address] [id number] Bag Adjuster: Yuri Osullivan PhD, Phone: [phone] Performed By: #### B 12, LIPIDBETSY, CMP #### [facility] [address] [id number] [facility] Methylmalonic Acidon 10-29- 024 Methylmalonic Acid 247 Normal 0-378 [facility] Comment on above: Result Comment: This test was developed and its performance characteristics determined by [employer]. It has not been cleared or approved by the Food and Drug Administration. Performed at: [address] [id number] Bag Adjuster: Christine Pham MD, Phone: [phone] This test was developed and its performance characteristics determined by [employer]. It has not been cleared or approved by the Food and Drug Administration. --- 11/06/23 1236 --- Methylmal Acid previously reported as: 247 nmol/L This test was developed and its performance characteristics determined by [employer]. It has not been cleared or approved by the Food and Drug Administration. Performed at: [address] [id number] Bag Adjuster: Christine Pham MD, Phone: [phone] Performed By: #### G LULS #### Point of Care testing , No Panel InformationOrdered By: Oz Kincaid on 10-30-2023 Anti-Nuclear Antibody Comment 2 See comment . [facility] Comment on above: Pattern Potential Di sease Association Homogeneous Systemic Lupus Erythematosus, Drug Induced Systemic Lupus Erythematosus, Chronic Autoimmune hepatitis, Juvenile Idiopathic Arthritis Speckled Sjogren Syndrome, Systemic Lupus Erythematosus, Subacute Cutaneous Lupus, Lupus, Congenital Heart Block, Mixed Connective Tissue Disease, Scleroderma-diffuse, Scleroderma-Autoimmune Myositis Overlap Syndrome, Systemic Lupus Pbvwlduytnfnp-Rkqinhuexnh-Gapufoxjmw Myositis Overlap Syndrome, Systemic Autoimmune Rheumatic Disease, Undifferentiated Connective Tissue Disease Nucleolar Systemic Sclerosis, Scleroderma-Autoimmune Myositis Overlap Syndrome, Sjogren Syndrome, Raynaud phenomenon, Pulmonary Arterial Hypertension, Systemic Autoimmune Rheumatic Disease, Cancer Centromere Scleroderma-CREST, Limited Cutaneous SSc, Raynaud's Phenomenon, Primary Biliary Cholangitis Nuclear Dot Primary Biliary Cholangitis Nuclear Primary Biliary Cholangitis, AutoimmuneMembrane Hepatitis/Liver disease, Systemic Autoimmune Rheumatic Disease, Autoimmune Cytopenias, Linear Scleroderma, Antiphospholipid Syndrome Performed at: [id number] [place], [place] [id number] Director: Christine Pham MD, Phone: [phone] at: [facility] [address] [id number] [place], [place] [id number] Director: Yuri Osullivan PhD, Phone: [phone] Pattern Potential Di sease Association Homogeneous Systemic Lupus Erythematosus, Drug Induced Systemic Lupus Erythematosus, Chronic Autoimmune hepatitis, Juvenile Idiopathic Arthritis Speckled Sjogren Syndrome, Systemic Lupus Erythematosus, Subacute Cutaneous Lupus, Lupus, Congenital Heart Block, Mixed Connective Tissue Disease, Scleroderma-diffuse, Scleroderma-Autoimmune Myositis Overlap Syndrome, Systemic Lupus Jyclccfixpjhs-Jvshpgxqqyy-Ikhzulqpmg Myositis Overlap Syndrome, Systemic Autoimmune Rheumatic Disease, Undifferentiated Connective Tissue Disease Nucleolar Systemic Sclerosis, Scleroderma-Autoimmune Myositis Overlap Syndrome, Sjogren Syndrome, Raynaud phenomenon, Pulmonary Arterial Hypertension, Systemic Autoimmune Rheumatic Disease, Cancer Centromere Scleroderma-CREST, Limited Cutaneous SSc, Raynaud's Phenomenon, Primary Biliary Cholangitis Nuclear Dot Primary Biliary Cholangitis Nuclear Primary Biliary Cholangitis, AutoimmuneMembrane Hepatitis/Liver disease, Systemic Autoimmune Rheumatic Disease, Autoimmune Cytopenias, Linear Scleroderma, Antiphospholipid Syndrome Performed at: - [facility] ([id number] [place], [place] [id number] Director: Christine Pham MD, Phone: [phone] at: [address] [place], [place] [id number] Director: Yuri Osullivan PhD, Phone: [phone] Pattern Potential Disease Association Homogeneous Systemic Lupus Erythematosus, Drug Induced Systemic Lupus Erythematosus, Chronic Autoimmune hepatitis, Juvenile Idiopathic Arthritis Speckled Sjogren Syndrome, Systemic Lupus Erythematosus, Subacute Cutaneous Lupus, Lupus, Congenital Heart Block, Mixed Connective Tissue Disease, Scleroderma-diffuse, Scleroderma-Autoimmune Myositis Overlap Syndrome, Systemic Lupus Kujinrsfkpdfg-Jfzdeetzbbr-Uxncrgrfiu Myositis Overlap Syndrome, Systemic Autoimmune Rheumatic Disease, Undifferentiated Connective Tissue Disease Nucleolar Systemic Sclerosis, Scleroderma-Autoimmune Myositis Overlap Syndrome, Sjogren Syndrome, Raynaud phenomenon, Pulmonary Arterial Hypertension, Systemic Autoimmune Rheumatic Disease, Cancer Centromere Scleroderma-CREST, Limited Cutaneous SSc, Raynaud's Phenomenon, Primary Biliary Cholangitis Nuclear Dot Primary Biliary Cholangitis Nuclear Primary Biliary Cholangitis, AutoimmuneMembrane Hepatitis/Liver disease, Systemic Autoimmune Rheumatic Disease, Autoimmune Cytopenias, Linear Scleroderma, Antiphospholipid Syndrome Performed at: - [facility] [id number] Director: Yuri Osullivan PhD, Phone: [phone] at: - [facility] [address] [id number] Director: Christine Pham MD, Phone: [phone] --- 11/06/23 1236 ---PO ELLIS Note 1 previously reported as: Pattern Potential Disease Association Homogeneous Systemic Lupus Erythematosus, Drug Induced Systemic Lupus Erythematosus, Chronic Autoimmune hepatitis, Juvenile Idiopathic Arthritis Speckled Sjogren Syndrome, Systemic Lupus Erythematosus, Subacute Cutaneous Lupus, Lupus, Congenital Heart Block, Mixed Connective Tissue Disease, Scleroderma-diffuse, Scleroderma-Autoimmune Myositis Overlap Syndrome, Systemic Lupus Qxivdvxharqrh-Iegdhrthlma-Imeaxrnkpi Myositis Overlap Syndrome, Systemic Autoimmune Rheumatic Disease, Undifferentiated Connective Tissue Disease Nucleolar Systemic Sclerosis, Scleroderma-Autoimmune Myositis Overlap Syndrome, Sjogren Syndrome, Raynaud phenomenon, Pulmonary Arterial Hypertension, Systemic Autoimmune Rheumatic Disease, Cancer Centromere Scleroderma-CREST, Limited Cutaneous SSc, Raynaud's Phenomenon, Primary Biliary Cholangitis Nuclear Dot Primary Biliary Cholangitis Nuclear Primary Biliary Cholangitis, AutoimmuneMembrane Hepatitis/Liver disease, Systemic Autoimmune Rheumatic Disease, Autoimmune Cytopenias, Linear Scleroder (more content not included)... Lactate/Pyruvate Interpretation N/A [facility] Plasma Lactic Acid, Venous See comment . [facility] Comment on above: Test not performed. Supernatant is required.CONTACTED YOUR FACILity on 11-05-2023 Protein Electrophoresis M-Meir Not observed g/dL Not Observed [facility] Protein Electrophoresis Note See comment . [facility] Comment on above: Protein electrophore sis scan will follow via computer,mail, or trade marker delivery. Pyruvic Acid See comment . [facility] Comment on above: Test not performed Serum Immunofixation See comment . [facility] Comment on above: No monoclonality det ected. Urine Random Prot Electrophor Note See comment . [facility] Comment on above: Protein electrophore sis scan will follow via computer,mail, or trade marker delivery.Performed at: [address] [id number] Director: Yuri Osullivan PhD, Phone: [phone] Whole Blood Zinc 909 ug/dL High 440-860 [facility] Comment on above: This test was develo ped and its performance characteristicsdetermined by [employer]. It has not been cleared orapproved by the Food and Drug Administration.Performed at: [facility] [address] [id number] Director: Christine Pham MD, Phone: [phone] This test was develo ped and its performance characteristicsdetermined by [employer]. It has not been cleared orapproved by the Food and Drug Administration.Performed at: [facility] [address] [id number] Director: Christine Pham MD, Phone: [phone] This test was developed and its performance characteristicsdetermined by [employer]. It has not been cleared orapproved by the Food and Drug Administration. --- 11/06/23 1236 ---Zinc,WB previously reported as: 909 H ug/dLThis test was developed and its performance characteristicsdetermined by [employer]. It has not been cleared orapproved by the Food and Drug Administration.Performed at: [facility] [address] [id number] Director: Christine Pham MD, Phone: [phone] Protein Electro, Random Urin marta 10-30-2023 Albumin, Urine 35.7 % Normal . [facility] Comment on above: Performed By: #### G LULS #### Point of Care testing , Hesst-9-Dnlveexs, Urine 0.4 % Normal . [facility] Comment on above: Performed By: #### G LULS #### Point of Care testing , Fvwgz-0-Xxkbzilr, Urine 8.9 % Normal . [facility] Comment on above: Performed By: #### G LULS #### Point of Care testing , Beta Globulin, Urine 31.7 % Normal . [facility] Comment on above: Performed By: #### G LULS #### Point of Care testing , Gamma Globulin, Urine 23.2 % Normal . [facility] Comment on above: Performed By: #### G LULS #### Point of Care testing , M-Meir % Not Observed Normal Not Observed [facility] Comment on above: Performed By: #### G LULS #### Point of Care testing , Please Note: Normal . [facility] Comment on above: Result Comment: Prot ein electrophoresis scan will follow via computer, mail, or trade marker delivery. Performed at: [facility] [id number] Bag Adjuster: Yuri Osullivan PhD, Phone: [phone] PERFORMED BY: [place] [address] PATHOLOGIST LINE OPERATOR SADAF STANTON M.D. Performed By: #### G LULS #### Point of Care testing , Protein Electrophoresis, Ser umon 10-30-2023 Ryrib-3-Jwtovzdy 0.3 g/dL Normal 0.0-0.4 [facility] Comment on above: Performed By: #### B 12, LIPID, URMACRERAT, CMP #### [facility] [address] Hnowd-1-Oyxxujgr 1.0 g/dL Normal 0.4-1.0 [facility] Comment on above: Performed By: #### B 12, LIPID, URMACRERAT, CMP #### [facility] [address] Beta Globulin 1.1 g/dL Normal 0.7-1.3 [facility] Comment on above: Performed By: #### B 12, LIPID, URMACRERAT, CMP #### [facility] [address] Gamma Globulin 1.1 g/dL Normal 0.4-1.8 [facility] Comment on above: Performed By: #### B 12, LIPID, URMACRERAT, CMP #### [facility] [address] M-Meir Not Observed Normal Not Observed [facility] Comment on above: Performed By: #### B 12, LIPID, URMACRERAT, CMP #### [facility] [address] SPE-Note Normal . [facility] Comment on above: Result Comment: Prot ein electrophoresis scan will follow via computer, mail, or trade marker delivery. Performed By: #### B 12, LIPID, URMACRERAT, CMP #### [address] Protein [Mass/volume] in Ser um or PlasmaOrdered By: Oz Kincaid on 10-30-2023 Protein [Mass/Vol] 7.7 g/dL 6.0-8.5 [facility] Comment on above: Performed By: #### B 12, LIPID, URMACRERAT, CMP #### [facility] [address] Protein [Mass/volume] in Uri neOrdered By: Oz Kincaid on 10-30-2023 Protein (U) [Mass/Vol] 28.8 mg/dL Not Estab. [facility] Comment on above: Performed By: #### G LULS #### Point of Care testing , Protein.monoclonal/Protein.t otal in 24 hour Urine by ElectrophoresisOrdered By: Oz Kincaid on 10-30-2023 Protein.monoclonal Elph (24H U) [Mass fraction] Not observed % Not Observed [facility] RPR w/rfx to Quant TP Abson 10-30-2023 RPR, Rfx Quant RPR Non-Reactive Normal Non Reactive [facility] Comment on above: Result Comment: Perf ormed at: CB - [facility] [address] [id number] Bag Adjuster: Yuri Osullivan PhD, Phone: [phone] PERFORMED BY: [place] [address] PATHOLOGIST LINE OPERATOR SADAF STANTON M.D. Performed By: #### B 12, LIPID, URMACRERAT, CMP #### [facility] [address] [place] [address] [place] Reagin Ab [Presence] in Seru m by RPROrdered By: Oz Kincaid on 10-30-2023 Reagin Ab RPR Ql (S) Non-Reactive Non Reactive [facility] Comment on above: Performed at: CB - [facility] [address] [id number] Director: Yuri Osullivan PhD, Phone: [phone] Rheumatoid Factoron 10-30-19 Rheumatoid Factor <10.0 Normal <14.0 [facility] Comment on above: Performed By: #### G LULS #### Point of Care testing , Serum West Nile virus IgG an tibody detection by immunoassayOrdered By: Oz Kincaid on 10-30-2023 West Nile virus IgG IA Ql (S) Negative Negative [facility] Serum West Nile virus IgM an tibody detection by immunoassayOrdered By: Oz Kincaid on 10-30-2023 West Nile virus IgM IA Ql (S) Negative Negative [facility] Comment on above: Performed at: - L [employer] [address] [id number] Director: Christine Pham MD, Phone: [phone] Serum globulin measurement ( mass/volume)Ordered By: Oz Kincaid on 10-30-2023 Globulin (S) [Mass/Vol] 3.5 g/dL 2.2-3.9 [facility] Comment on above: Performed By: #### B 12, LIPID, URMACRERAT, CMP #### [facility] [address] [place] [address] Serum homogeneous pattern an tinuclear antibody (PO) titerOrdered By: Oz Kincaid on 07-03-2024 Homogenous nuclear Ab pattern (S) [Titer] N/A [facility] Serum nuclear antibody titer Ordered By: Oz Kincaid on 10-30-2023 Nuclear Ab (S) [Titer] Positive Abnormal . [facility] Comment on above: Negative <1:80 Borde rline 1:80 Positive >1:80 Serum or plasma albumin/glob ulin mass ratioOrdered By: Oz Kincaid on 10-30-2023 Albumin/Globulin [Mass ratio] 1.2 {ratio} 0.7-1.7 [facility] Comment on above: Performed By: #### B 12, LIPID, URMACRERAT, CMP #### [facility] [address] Serum or plasma alpha 1 glob ulin measurement by electrophoresis (mass/volume)Ordered By: Oz Kincaid on 10-30-2023 Alpha 1 globulin Elph [Mass/Vol] 0.3 g/dL 0.0-0.4 [facility] Serum or plasma alpha 2 glob ulin measurement by electrophoresis (mass/volume)Ordered By: Oz Kincaid on 10-30-2023 Alpha 2 globulin Elph [Mass/Vol] 1.0 g/dL 0.4-1.0 [facility] Serum or plasma beta globuli n measurement by electrophoresis (mass/volume)Ordered By: Oz Kincaid on 10-30-2023 Beta globulin Elph [Mass/Vol] 1.1 g/dL 0.7-1.3 [facility] Serum or plasma ceruloplasmi n measurement (mass/volume)Ordered By: Oz Kincaid on 10-30-2023 Ceruloplasmin [Mass/Vol] 30.1 mg/dL 19.0-39.0 [facility] Comment on above: Performed at: [address] [id number] Director: Yuri Osullivan PhD, Phone: [phone] Serum or plasma gamma globul in measurement by electrophoresis (mass/volume)Ordered By: Oz Kincaid on 10-30-2023 Gamma globulin Elph [Mass/Vol] 1.1 g/dL 0.4-1.8 [facility] Serum or plasma homocysteine measurement (moles/volume)Ordered By: Oz Kincaid on 10-30-2023 Homocysteine [Moles/Vol] 20.7 umol/L High 0.0-17.2 [facility] Comment on above: Performed at: [address] [id number] Director: Yuri Osullivan PhD, Phone: [phone] Serum or plasma lutropin coleman surement (units/volume)Ordered By: Oz Kincaid on 10-30-2023 Lutropin Qn 60.4 m[IU]/mL High 7.7-58.5 [facility] Comment on above: Adult Female Range F ollicular phase 2.4 - 12.6 Ovulation phase 14.0 - 95.6 Luteal phase 1.0 - 11.4 Postmenopausal 7.7 - 58.5 Serum or plasma methylmalona te measurement (moles/volume)Ordered By: Oz Kincaid on 10-30-2023 Methylmalonate [Moles/Vol] 247 nmol/L 0-378 [facility] Comment on above: This test was develo ped and its performance characteristicsdetermined by [employer]. It has not been cleared orapproved by the Food and Drug Administration.Performed at: [address] [id number] Director: Christine Pham MD, Phone: [phone] This test was develo ped and its performance characteristicsdetermined by [employer]. It has not been cleared orapproved by the Food and Drug Administration.Performed at: [address] [id number] Director: Christine Pham MD, Phone: [phone] This test was developed and its performance characteristicsdetermined by [employer]. It has not been cleared orapproved by the Food and Drug Administration. --- 11/06/23 1236 ---Methylmal Acid previously reported as: 247 nmol/LThis test was developed and its performance characteristicsdetermined by [facility]. It has not been cleared orapproved by the Food and Drug Administration.Performed at: [address] [id number] Director: Christine Pham MD, Phone: [phone] Serum or plasma pyridoxine m easurement (mass/volume)Ordered By: Oz Kincaid on 10-30-2023 Pyridoxine [Mass/Vol] 8.8 ug/L 3.4-65.2 [facility] Comment on above: This test was develo ped and its performance characteristicsdetermined by [facility]. It has not been cleared orapproved by the Food and Drug Administration. Deficiency: <3.4 Marginal: 3.4 - 5.1 Adequate: >5.1Performed at: [facility] [address] [id number] Director: Christine Pham MD, Phone: [phone] Serum or plasma rheumatoid f actor measurement (units/volume)Ordered By: Oz Kincaid on 10-30-2023 Rheumatoid factor Qn [IU]/mL <14.0 [facility] Serum speckled pattern antin uclear antibody (PO) titerOrdered By: Oz Kincaid on 10-30-2023 Speckled nuclear Ab pattern (S) [Titer] 1:80 . [facility] Comment on above: ICAP nomenclature: A C-2,4,5,29 Thyrotropin [Units/volume] i n Serum or PlasmaOrdered By: Oz Kincaid on 10-30-2023 TSH Qn 6.38 m[IU]/L High 0.45-5.33 [facility] Comment on above: Result Comment: PERF ORMED BY: [address] [place] [address] PATHOLOGIST LINE OPERATOR SADAF STANTON M.D. Performed By: #### A DASIA CUU #### [facility] [address] [place] [address] Thyroxine (T4) free [Mass/vo lume] in Serum or PlasmaOrdered By: Oz Kincaid on 10-30-2023 Free T4 [Mass/Vol] 0.89 ng/dL 0.61-1.12 [facility] Comment on above: Performed By: #### A DASIA, CUU #### [facility] [address] Urine alpha 1 globulin/total protein by electrophoresisOrdered By: Oz Codi on 10-30-2023 Alpha 1 globulin Elph (U) [Mass fraction] 0.4 % . [facility] Urine alpha 2 globulin/total protein ratio by electrophoresisOrdered By: Oz Codi on 10-30-2023 Alpha 2 globulin Elph (U) [Mass fraction] 8.9 % . [facility] Urine beta globulin measurem ent by electrophoresis (mass/volume)Ordered By: Oz Kincaid on 10-30-2023 Beta globulin Elph (U) [Mass/Vol] 31.7 % . [facility] Vit. B12/Folate Profileon Folate 34.0 ng/mL Normal >5.9 [facility] Comment on above: Result Comment: Meera te reference range: >5.9 ng/ml The WHO technical consultation on folate and vitamin b12 deficiencies has determined that folate concentrations less than 4 ng/ml are considered deficient. Performed By: #### A DASIA CUU #### [facility] [address] [place] [address] Vitamin B12 ser/plasOrdered By: Oz Codi on 10-30-2023 Cobalamin (Vitamin B12) [Mass/Vol] 300 pg/mL 180-914 [facility] Comment on above: Performed By: #### A DASIA, CUU #### [facility] [address] [place] [address] Vitamin B6on 10-30-2023 Vitamin B6 8.8 Normal 3.4-65.2 [facility] Comment on above: Result Comment: This test was developed and its performance characteristics determined by [facility]. It has not been cleared or approved by the Food and Drug Administration. Deficiency: <3.4 Marginal: 3.4 - 5.1 Adequate: >5.1 Performed at: [address] [id number] Bag Adjuster: Christine Pham MD, Phone: [phone] PERFORMED BY: [place] [address] PATHOLOGIST LINE OPERATOR JIANLAN SUN M.D. Performed By: #### B 12, LIPID, URMACRERAT, CMP #### [facility] [address] [id number] [facility] Vitamin E, Alpha Gamma Tocop on 10-30-2023 Vitamin E Alpha Tocopherol 8.7 mg/L Low 9.0-29.0 [facility] Comment on above: Result Comment: This test was developed and its performance characteristics determined by [facility]. It has not been cleared or approved by the Food and Drug Administration. Performed By: #### G LULS #### Point of Care testing , Vitamin E GammaTocopherol 0.7 mg/L Normal 0.5-4.9 [facility] Comment on above: Result Comment: This test was developed and its performance characteristics determined by [facility]. It has not been cleared or approved by the Food and Drug Administration. Reference intervals for alpha and gamma-tocopherol determined from National Health and Nutrition Examination Survey, 2722-2226. Individuals with alpha-tocopherol levels less than 5.0 mg/L are considered vitamin E deficient. Performed By: #### G LULS #### Point of Care testing , West Nile Virus Antibodies, Son 10-30-2023 West Nile Virus Antibody IgG S Negative Normal Negative [facility] Comment on above: Performed By: #### B 12, LIPID, URMACRERAT, CMP #### [address] West Nile Virus Antibody IgM S Negative Normal Negative [facility] Comment on above: Result Comment: Perf ormed at: - [facility] [id number] Bag Adjuster: Christine Pham MD, Phone: [phone] Performed By: #### B 12, LIPID, URMACRERAT, CMP #### [address] XR lumbar spine 6V w bending on 10-30-2023 XR lumbar spine 6V w bending [facility] [place] [address] [place] [address] XRay Report Signed Patient: Kerry Gay MR#: [id number] 19 : 1955 Acct:[id number] Age/Sex: 67 / F ADM Date: 10/30/23 Loc: XD Room: Type: [facility] Attending Dr: Oz Kincaid MD Copies to: Oz Kincaid MD Ordering Provider: Oz Kincaid MD Date of Service: 10/30/23 XR/XR lumbar spine 6V w bending: M54.5 LUMBAR SPINE - 8 views CLINICAL HISTORY: Bilateral leg weakness for months. COMPARISON: None FINDINGS: Vertebral body heights appear maintained. Scattered endplate and facet joint degenerative changes with moderate disc space narrowing L5-S1 and mild disc space narrowing L2-L3 and L4-L5. No pathological motion on flexion or extension views. SI joints demonstrate degenerative changes. XR/XR lumbar spine 6V w bending IMPRESSION: MULTILEVEL DEGENERATIVE DISEASE, WORST AT L5-S1. Impression dictated by: Edgar Segovia Jr., D.O.10/30/2023 3:15 PM Dictation Location: [facility]--12 Transcribed By: [facility] 10/30/23 1515 Dictated By: Edgar Segovia Jr, DO 10/30/23 1514 Signed By: 10/30/23 1515 Normal [facility] Zinc, Whole Bloodon 10-30-19 Zinc, Whole Blood 909 ug/dL High 440-860 [facility] Comment on above: Result Comment: This test was developed and its performance characteristics determined by [facility]. It has not been cleared or approved by the Food and Drug Administration. Performed at: [address] [id number] Bag Adjuster: Christine Pham MD, Phone: [phone] This test was developed and its performance characteristics determined by [facility]. It has not been cleared or approved by the Food and Drug Administration. --- 11/06/23 1236 --- Zinc,WB previously reported as: 909 H ug/dL This test was developed and its performance characteristics determined by [facility]. It has not been cleared or approved by the Food and Drug Administration. Performed at: [address] [id number] Bag Adjuster: Christine Pham MD, Phone: [phone] Performed By: #### G LULS #### Point of Care testing , Capillary blood glucose steve urement by glucometer (mass/volume)Ordered By: Elva Florian on 09-14-2023 Glucose [Mass/Vol] 134 mg/dL Normal [facility] Comment on above: Random Glucose Refer ence Range is dependent on time and content of last meal. Glucose of more than 200 mg/dL in a nonstressed, ambulatory subject supports the diagnosis of Diabetes Mellitus. Result Comment: [place] om Glucose Reference Range is dependent on time and content of last meal. Glucose of more than 200 mg/dL in a nonstressed, ambulatory subject supports the diagnosis of Diabetes Mellitus. PERFORMED BY: [place] [address] PATHOLOGIST LINE OPERATOR SADAF STANTON M.D. Performed By: #### B 12, LIPID, URMACRERAT, CMP #### [address] Glucose Poct Glucometerson 0 09-14-2023 Glucose [Mass/Vol] 168 mg/dL Normal [facility] Comment on above: Result Comment: [place] om Glucose Reference Range is dependent on time and content of last meal. Glucose of more than 200 mg/dL in a nonstressed, ambulatory subject supports the diagnosis of Diabetes Mellitus. PERFORMED BY: [place] [address] PATHOLOGIST LINE OPERATOR SADAF STANTON M.D. Performed By: #### A DASIA, CUU #### [address] Commemt1 Glu2: Cleaned Meter Normal [facility] Comment on above: Result Comment: PERF ORMED BY: [place] [address] PATHOLOGIST LINE OPERATOR SADAF STANTON M.D. Performed By: #### L YTES #### [address] Glucose [Mass/Vol] 131 mg/dL Normal [facility] Comment on above: Result Comment: [place] om Glucose Reference Range is dependent on time and content of last meal. Glucose of more than 200 mg/dL in a nonstressed, ambulatory subject supports the diagnosis of Diabetes Mellitus. Performed By: #### L YTES #### [facility] [address] No Panel InformationOrdered By: Elva Florian on 09-14-2023 Bedside Glucose Comment Glu2: cleaned meter [facility] Cholesterol [Mass/volume] in Serum or PlasmaOrdered By: Elva Florian on 09-13-2023 Cholesterol [Mass/Vol] 125 mg/dL Low 140-200 [facility] Comment on above: Chol less than 200 m g/dl low riskChol 201-239 mg/dl borderline riskChol 240 mg/dl and greater high risk Result Comment: Chol less than 200 mg/dl low risk Chol 201-239 mg/dl borderline risk Chol 240 mg/dl and greater high risk Performed By: #### A DDONUAPLUS, CUU #### [facility] [address] Cholesterol in LDL Calc [Mas s/Vol]Ordered By: Elva Florian on 09-13-2023 Cholesterol in LDL [Mass/Vol] 59 mg/dL 0-100 [facility] Comment on above: LDL ATP III CLASSIFI CATIONLDL less than 100 mg/dL OptimalLDL 100-129 mg/dL Near or above optimalLDL 130-159 mg/dL Borderline highLDL 160-189 mg/dL HighLDL greater than 189 mg/dL Very high Cholesterol in VLDL Calc [Ma ss/Vol]Ordered By: Elva Florian on 09-13-2023 Cholesterol in VLDL [Mass/Vol] 39 mg/dL [facility] ECH echo transthoracicon ECH echo transthoracic [facility] Main [place] [address] [place] [address] Echocardiogram Signed Patient: Kerry Gay MR#: [id number] 19 : 1955 Acct:[id number] Age/Sex: 67 / F ADM Date: 09/12/23 Loc: Room: [address] [place] [address] Type: ADM INOo Attending Dr: Elva Florian MD Ordering Provider: Elva Florian MD Date of Service: 09/12/23 [facility] echo transthoracic: new afib Copies to: MD Darrell Kraft MD BSA: 1.9 m2 BP: 112/80 mmHg HR: 99 Reason For Study: new afib History: HTN, HLD, DM, CKD, smoker, family history of CAD Interpretation Summary The left ventricular size and thickness are normal. Ejection Fraction = 35-40%. There is moderate global hypokinesis of the left ventricle. Procedure/Quality: A two-dimensional transthoracic echocardiogram with color flow, Doppler and injection of contrast agent Definity was performed. The study was technically fair in quality. Left Ventricle: The left ventricular size and thickness are normal. Ejection Fraction = 35-40%. There is moderate global hypokinesis of the left ventricle. No left ventricular thrombus or mass is seen. Left Atrium: The left atrium appears normal in size. The atrial septum appears normal. Right Atrium: The right atrium appears normal in size. Right Ventricle: The right ventricular size, thickness and function are normal. Aortic Valve: The aortic valve is normal in structure and function. Mitral Valve: The mitral valve is mildly sclerotic. Tricuspid Valve: The tricuspid valve is normal in structure and function. Pulmonic Valve: The pulmonic valve is not well visualized. Arteries: The aortic root is normal size. The aortic arch was visualized and no abnormalities were seen. Pericardium/Pleura: No pericardial effusion seen. There is no pleural effusion. IVC/Hepatic Veins: The inferior vena cava was not visualized during the exam. Measurements with Normals IVSd: 1.0 cm (0.7-1.1 cm)LVIDd: 4.4 cm (3.7-5.4 cm) LVPWd: 1.1 cm (0.7-1.1 cm)LVIDs: 3.9 cm (2.3-3.6 cm) LA dimension: 3.1 cm (2.3-4.0 cm)Ao root diam: 2.9 cm(2.0-3.6 cm) asc Aorta Diam: 3.1 cm(2.1-3.4cm) Doppler with Normals LV V1 max: 71.1 cm/sec(0.7-1.7m/s)MV E max mary: 78.7 cm/sec(0.8-1.3m/s) MMode/2D Measurements Calculations RVDd: 2.6 cm FS: 9.6 % Ao root area: LVOT diam: 2.0 cm TAPSE: 1.3 cm EDV(Teich): 6.4 cm2 LVOT area: 3.2 cm2 86.1 ml ESV(Teich): 67.8 ml EF(Teich): 21.2 % __ LVLd ap4: 6.8 cm SV(MOD-sp4): LAV(MOD-sp4): LA A2 area: 16.9 cm2 EDV(MOD-sp4): 11.1 ml 37.6 ml 54.1 ml LAV(MOD-sp2): LA A4 area: 16.8 cm2 LVLs ap4: 6.9 cm 40.9 ml LA length (vol): ESV(MOD-sp4): 5.3 cm 43.0 ml LA vol: 45.6 ml EF(MOD-sp4): LA vol index: 20.5 % 23.6 ml/m2 Doppler Measurements Calculations MV V2 max: 78.6 cm/sec Ao V2 max: 129.4 cm/sec LV V1 max P.0 mmHg MV max P.5 mmHg Ao max P.7 mmHg LV V1 mean P.94 mmHg MV V2 mean: 37.1 cm/sec Ao mean P.7 mmHg LV V1 mean: 43.3 cm/sec MV mean P.80 mmHg Ao V2 mean: 90.8 cm/sec LV V1 VTI: 12.6 cm MV V2 VTI: 14.4 cm Ao V2 VTI: 25.7 cm MVA(VTI): 2.8 cm2 EMILIANA(I,D): 1.6 cm2 EMILIANA(V,D): 1.8 cm2 Transcribed By: TITO Performed At: 09/13/23 1059 Signed By: Darrell Ch MD 09/13/23 1240 Normal [facility] Glucose Poct Glucometerson 0 09-13-2023 Commemt1 Glu2: Cleaned Meter Normal [facility] Comment on above: Result Comment: PERF ORMED BY: [place] [address] PATHOLOGIST LINE OPERATOR SADAF STANTON M.D. Performed By: #### L YTES #### [place] [address] [place] Glucose [Mass/Vol] 149 mg/dL Normal [facility] Comment on above: Result Comment: [place] om Glucose Reference Range is dependent on time and content of last meal. Glucose of more than 200 mg/dL in a nonstressed, ambulatory subject supports the diagnosis of Diabetes Mellitus. Performed By: #### L YTES #### [address] Glucose [Mass/Vol] 141 mg/dL Normal [facility] Comment on above: Result Comment: [place] om Glucose Reference Range is dependent on time and content of last meal. Glucose of more than 200 mg/dL in a nonstressed, ambulatory subject supports the diagnosis of Diabetes Mellitus. PERFORMED BY: [place] [address] PATHOLOGIST LINE OPERATOR SADAF STANTON M.D. Performed By: #### L YTES #### [place] [address] [place] Glucose [Mass/Vol] 177 mg/dL Normal [facility] Comment on above: Result Comment: [place] om Glucose Reference Range is dependent on time and content of last meal. Glucose of more than 200 mg/dL in a nonstressed, ambulatory subject supports the diagnosis of Diabetes Mellitus. PERFORMED BY: [place] [address] PATHOLOGIST LINE OPERATOR SADAF STANTON M.D. Performed By: #### G LULS #### Point of Care testing , Glucose [Mass/Vol] 140 mg/dL Normal [facility] Comment on above: Result Comment: [facility] Glucose Reference Range is dependent on time and content of last meal. Glucose of more than 200 mg/dL in a nonstressed, ambulatory subject supports the diagnosis of Diabetes Mellitus. PERFORMED BY: [place] [address] PATHOLOGIST LINE OPERATOR SADAF STANTON M.D. Performed By: #### L H, LACTATE PYRUVAT, HOMOCYS PL, NATASHA SERUM, RA, PO, ZINC,WB, WEST TANK, MORTEZA, CERULOP, RPR W RFX, LYME AB wRFX, SPE, ALDOLASE, NATASHA,URINE, VITB6, METH, UPE RAND #### [facility] , #### ALT, CK, AST, T4F, HSCRP, A1C WTH eA, ESR, TSH3, [id number] #### [address] Lipid Panelon 09-13-2023 LDL Cholesterol,Calculated 59 mg/dL Normal 0-100 [facility] Comment on above: Result Comment: LDL ATP III CLASSIFICATION LDL less than 100 mg/dL Optimal LDL 100-129 mg/dL Near or above optimal LDL 130-159 mg/dL Borderline high LDL 160-189 mg/dL High LDL greater than 189 mg/dL Very high Performed By: #### A DDONUAPLUS, CUU #### [address] Triglyceride w/Reflex 198 mg/dL High 0-149 [facility] Comment on above: Result Comment: TRIG ATP III CLASSIFICATION TRIG less than 150 mg/dL Normal TRIG 150-199 mg/dL Borderline high TRIG 200-500 mg/dL High TRIG greater than 500 mg/dL Very high Standard traceable to the Center for Disease Conrtrol and Prevention (CDC) test method. Performed By: #### A DDONUAPLUS, CUU #### [address] VLDL CHOLESTEROL 39 mg/dL Normal [facility] Comment on above: Performed By: #### A DASIA, CUU #### [facility] [address] Magnesium [Mass/volume] in S elliot or PlasmaOrdered By: Elva Florian on 09-13-2023 Magnesium [Mass/Vol] 1.6 mg/dL Low 1.9-2.7 [facility] Comment on above: Performed By: #### A DASIA, CUU #### [facility] [address] [place] [address] Serum or plasma high density lipoprotein (HDL) cholesterol measurementOrdered By: Elva Florian on 09-13-2023 Cholesterol in HDL [Mass/Vol] 26 mg/dL Normal 23-92 [facility] Comment on above: HDL CHOL ATP-III CLA SSIFICATION Cardiovascular RiskHDL > or equal to 60 mg/dL LOWHDL < 40 mg/dL HIGH Result Comment: HDL CHOL ATP-III CLASSIFICATION Cardiovascular Risk HDL > or equal to 60 mg/dL LOW HDL < 40 mg/dL HIGH Performed By: #### A DASIA, CUU #### [facility] [address] [place] [address] Serum or plasma total choles terol/high density lipoprotein (HDL) cholesterol mass ratOrdered By: Elva Florian on 09-13-2023 Cholesterol.total/Karla sterol in HDL [Mass ratio] 4.8 {ratio} Normal <5.0 [facility] Comment on above: Result Comment: PERF ORMED BY: [place] [address] PATHOLOGIST LINE OPERATOR SADAF STANTON M.D. Performed By: #### A DASIA, CUU #### [facility] [address] [place] [address] Thyrotropin [Units/volume] i n Serum or PlasmaOrdered By: Elva Florian on 09-13-2023 TSH Qn 2.48 m[IU]/L Normal 0.45-5.33 [facility] Comment on above: Result Comment: PERF ORMED BY: [address] [address] PATHOLOGIST LINE OPERATOR SADAF STANTON M.D. Performed By: #### A SUSAN FORMAN #### [facility] [address] Triglyceride [Mass/volume] i n Serum or PlasmaOrdered By: Elva Florian on 09-13-2023 Triglyceride [Mass/Vol] 198 mg/dL High 0-149 [facility] Comment on above: TRIG ATP III CLASSIF ICATIONTRIG less than 150 mg/dL NormalTRIG 150-199 mg/dL Borderline highTRIG 200-500 mg/dL High TRIG greater than 500 mg/dL Very highStandard traceable to the Center for Disease Conrtrol and Prevention (CDC) test method. Activated partial thrombopla stin time (aPTT) in platelet poor plasma by coagulation aOrdered By: Haider Valenzuela on 09-12-2023 aPTT Coag (PPP) [Time] 29.3 s 25.1-36.5 [facility] Comment on above: A hematocrit value g reater than 55% may lead to inaccurate results in coagulation testing. Patients having hematocrit values >55% require a special collection tube for coagulation studies. Please contact the laboratory at [phone] for redraw instructions. Automated basophil %Ordered By: Haider Valenzuela on 09-12-2023 Basophils/100 WBC (Bld) 0.9 % Normal . [facility] Comment on above: Performed By: #### L H, LACTATE PYRUVAT, HOMOCYS PL, NATASHA SERUM, RA, PO, ZINC,WB, WEST [place], MORTEZA, CERULOP, RPR W RFX, LYME AB wRFX, SPE, ALDOLASE, NATASHA,URINE, VITB6, METH, UPE RAND #### [facility] , #### ALT, CK, AST, T4F, HSCRP, A1C WTH eA, ESR, TSH3, [id number] #### [facility] [address] [id number] [facility] Automated basophil countOrde red By: Haider Valenzuela on 09-12-2023 Basophils (Bld) [#/Vol] 0.1 10*3/uL Normal 0.0-0.2 [facility] Comment on above: Result Comment: PERF ORMED BY: [place] [address] PATHOLOGIST LINE OPERATOR SADAF STANTON M.D. Performed By: #### L H, LACTATE PYRUVAT, HOMOCYS PL, NATASHA SERUM, RA, PO, ZINC,WB, WEST TANK, MORTEZA, CERULOP, RPR W RFX, LYME AB wRFX, SPE, ALDOLASE, NATASHA,URINE, VITB6, METH, UPE RAND #### [facility] , #### ALT, CK, AST, T4F, HSCRP, A1C WTH eA, ESR, TSH3, [id number] #### [address] Automated blood monocyte cou ntOrdered By: Haider Valenzuela on 09-12-2023 Monocytes (Bld) [#/Vol] 0.6 10*3/uL Normal 0.0-0.8 [facility] Comment on above: Performed By: #### L H, LACTATE PYRUVAT, HOMOCYS PL, NATASHA SERUM, RA, PO, ZINC,WB, [place], MORTEZA, CERULOP, RPR W RFX, LYME AB wRFX, SPE, ALDOLASE, NATASHA,URINE, VITB6, METH, UPE RAND #### [facility] , #### ALT, CK, AST, T4F, HSCRP, A1C WTH eA, ESR, TSH3, [id number] #### [address] Automated eosinophil %Ordere d By: Haider Valenzuela on 09-12-2023 Eosinophils/100 WBC (Bld) 1.7 % Normal . [facility] Comment on above: Performed By: #### L H, LACTATE PYRUVAT, HOMOCYS PL, NATASHA SERUM, RA, PO, ZINC,WB, WEST [place], MORTEZA, CERULOP, RPR W RFX, LYME AB wRFX, SPE, ALDOLASE, NATASHA,URINE, VITB6, METH, UPE RAND #### [facility] , #### ALT, CK, AST, T4F, HSCRP, A1C WTH eA, ESR, TSH3, [id number] #### [address] Automated eosinophil countOr dered By: Haider Valenzuela on 09-12-2023 Eosinophils (Bld) [#/Vol] 0.2 10*3/uL Normal 0.0-0.45 [facility] Comment on above: Performed By: #### L H, LACTATE PYRUVAT, HOMOCYS PL, NATASHA SERUM, RA, PO, ZINC,WB, WEST [place], MORTEZA, CERULOP, RPR W RFX, LYME AB wRFX, SPE, ALDOLASE, NATASHA,URINE, VITB6, METH, UPE RAND #### [facility] , #### ALT, CK, AST, T4F, HSCRP, A1C WTH eA, ESR, TSH3, [id number] #### [address] Automated monocyte %Ordered By: Haider Valenzuela on 09-12-2023 Monocytes/100 WBC (Bld) 5.9 % Normal . [facility] Comment on above: Performed By: #### L H, LACTATE PYRUVAT, HOMOCYS PL, NATASHA SERUM, RA, PO, ZINC,WB, WEST TANK, MORTEZA, CERULOP, RPR W RFX, LYME AB wRFX, SPE, ALDOLASE, NATASHA,URINE, VITB6, METH, UPE RAND #### [facility] , #### ALT, CK, AST, T4F, HSCRP, A1C WTH eA, ESR, TSH3, [id number] #### [address] Automated neutrophil %Ordere d By: Haider Valenzuela on 09-12-2023 Neutrophils/100 WBC (Bld) 71.3 % Normal . [facility] Comment on above: Performed By: #### L H, LACTATE PYRUVAT, HOMOCYS PL, NATASHA SERUM, RA, PO, ZINC,WB, WEST [place]ANK, MORTEZA, CERULOP, RPR W RFX, LYME AB wRFX, SPE, ALDOLASE, NATASHA,URINE, VITB6, METH, UPE RAND #### [facility] , #### ALT, CK, AST, T4F, HSCRP, A1C WTH eA, ESR, TSH3, [id number] #### [address] BNP ser/plasOrdered By: Haider Valenzuela on 09-12-2023 Natriuretic peptide B (Bld) [Mass/Vol] 112.0 pg/mL High 5-100 [facility] Comment on above: Result Comment: PERF ORMED BY: [place] [address] PATHOLOGIST LINE OPERATOR SADAF STANTON M.D. Performed By: #### L H, LACTATE PYRUVAT, HOMOCYS PL, NATASHA SERUM, RA, PO, ZINC,WB, WEST [place]ANK, MORTEZA, CERULOP, RPR W RFX, LYME AB wRFX, SPE, ALDOLASE, NATASHA,URINE, VITB6, METH, UPE RAND #### [facility] , #### ALT, CK, AST, T4F, HSCRP, A1C WTH eA, ESR, TSH3, [id number] #### [address] Basic Metabolic Panelon 08-27 Creatinine Clr Calc Pharmacy 73.11 Normal [facility] Comment on above: Result Comment: PERF ORMED BY: [place] [address] PATHOLOGIST LINE OPERATOR SADAF STANTON M.D. Performed By: #### L H, LACTATE PYRUVAT, HOMOCYS PL, NATASHA SERUM, RA, PO, ZINC,WB, WEST [place], MORTEZA, CERULOP, RPR W RFX, LYME AB wRFX, SPE, ALDOLASE, NATASHA,URINE, VITB6, METH, UPE RAND #### [facility] , #### ALT, CK, AST, T4F, HSCRP, A1C WTH eA, ESR, TSH3, [id number] #### [facility] [address] [place] [address] [place] GFR/1.73 sq M.predicted MDRD (S/P/Bld) [Vol rate/Area] mL/min/{1.73_m2} Normal [facility] Comment on above: Performed By: #### L H, LACTATE PYRUVAT, HOMOCYS PL, NATASHA SERUM, RA, PO, ZINC,WB, [place]ST [place], MORTEZA, CERULOP, RPR W RFX, LYME AB wRFX, SPE, ALDOLASE, NATASHA,URINE, VITB6, METH, UPE RAND #### [facility] , #### ALT, CK, AST, T4F, HSCRP, A1C WTH eA, ESR, TSH3, [id number] #### [facility] [address] [place] [address] [place] Calcium [Mass/volume] in Ser um or PlasmaOrdered By: Haider Valenzuela on 09-12-2023 Calcium [Mass/Vol] 10.5 mg/dL High 8.6-10.3 [facility] Comment on above: Performed By: #### L H, LACTATE PYRUVAT, HOMOCYS PL, NATASHA SERUM, RA, PO, ZINC,WB, WEST TANK, MORTEZA, CERULOP, RPR W RFX, LYME AB wRFX, SPE, ALDOLASE, NATASHA,URINE, VITB6, METH, UPE RAND #### [facility] , #### ALT, CK, AST, T4F, HSCRP, A1C WTH eA, ESR, TSH3, [id number] #### [facility] [address] [place] [id number] [place] Carbon dioxide, total [Moles /volume] in Serum or PlasmaOrdered By: Haider Valenzuela on 09-12-2023 CO2 [Moles/Vol] 25.0 mmol/L Normal 21.0-31.0 [facility] Comment on above: Performed By: #### L H, LACTATE PYRUVAT, HOMOCYS PL, NATASHA SERUM, RA, PO, ZINC,WB, WEST [place]ANK, MORTEZA, CERULOP, RPR W RFX, LYME AB wRFX, SPE, ALDOLASE, NATASHA,URINE, VITB6, METH, UPE RAND #### [facility] , #### ALT, CK, AST, T4F, HSCRP, A1C WTH eA, ESR, TSH3, [id number] #### [facility] [address] Chloride [Moles/volume] in S elliot or PlasmaOrdered By: Haider Valenzuela on 09-12-2023 Chloride [Moles/Vol] 102 mmol/L Normal 98-107 [facility] Comment on above: Performed By: #### L H, LACTATE PYRUVAT, HOMOCYS PL, NATASHA SERUM, RA, PO, ZINC,WB, [place]ST [place], MORTEZA, CERULOP, RPR W RFX, LYME AB wRFX, SPE, ALDOLASE, NATASHA,URINE, VITB6, METH, UPE RAND #### [facility] , #### ALT, CK, AST, T4F, HSCRP, A1C WTH eA, ESR, TSH3, [id number] #### [facility] [address] Complete Blood Count Auto Di ffon 09-12-2023 Mean Corpuscular HGB Conc 34.2 g/dL Normal 32.0-35.0 [facility] Comment on above: Performed By: #### L H, LACTATE PYRUVAT, HOMOCYS PL, NATASHA SERUM, RA, PO, ZINC,WB, [place], MORTEZA, CERULOP, RPR W RFX, LYME AB wRFX, SPE, ALDOLASE, NATASHA,URINE, VITB6, METH, UPE RAND #### [facility] , #### ALT, CK, AST, T4F, HSCRP, A1C WTH eA, ESR, TSH3, [id number] #### [facility] [address] [place] [address] [place] Monocytes/100 WBC (Bld) 19.90 % Normal 0.00-20.00 [facility] Comment on above: Performed By: #### L H, LACTATE PYRUVAT, HOMOCYS PL, NATASHA SERUM, RA, PO, ZINC,WB, WEST [place], MORTEZA, CERULOP, RPR W RFX, LYME AB wRFX, SPE, ALDOLASE, NATASHA,URINE, VITB6, METH, UPE RAND #### [facility] , #### ALT, CK, AST, T4F, HSCRP, A1C WTH eA, ESR, TSH3, [id number] #### [facility] [address] NRBC% 0.2 /100{WBC} Normal 0-0.5 [facility] Comment on above: Performed By: #### L H, LACTATE PYRUVAT, HOMOCYS PL, NATASHA SERUM, RA, PO, ZINC,WB, WEST [place], MORTEZA, CERULOP, RPR W RFX, LYME AB wRFX, SPE, ALDOLASE, NATASHA,URINE, VITB6, METH, UPE RAND #### [facility] , #### ALT, CK, AST, T4F, HSCRP, A1C WT eA, ESR, TSH3, [id number] #### [facility] [address] Creatine kinase [Enzymatic a ctivity/volume] in Serum or PlasmaOrdered By: Haider Valenzuela on 09-12-2023 CK [Catalytic activity/Vol] 45 U/L Normal 30-223 [facility] Comment on above: Performed By: #### L H, LACTATE PYRUVAT, HOMOCYS PL, NATASHA SERUM, RA, PO, ZINC,WB, WEST [place], MORTEZA, CERULOP, RPR W RFX, LYME AB wRFX, SPE, ALDOLASE, NATASHA,URINE, VITB6, METH, UPE RAND #### [facility] , #### ALT, CK, AST, T4F, HSCRP, A1C WTH eA, ESR, TSH3, [id number] #### [facility] [address] [place] [id number] [facility] Creatinine [Mass/volume] in Serum or PlasmaOrdered By: Haider Valenzuela on 09-12-2023 Creatinine [Mass/Vol] 0.84 mg/dL Normal 0.60-1.20 [facility] Comment on above: Performed By: #### L H, LACTATE PYRUVAT, HOMOCYS PL, NATSAHA SERUM, RA, PO, ZINC,WB, WEST [place], MORTEZA, CERULOP, RPR W RFX, LYME AB wRFX, SPE, ALDOLASE, NATASHA,URINE, VITB6, METH, UPE RAND #### [facility] , #### ALT, CK, AST, T4F, HSCRP, A1C WTH eA, ESR, TSH3, [id number] #### [facility] [address] [place], [place] [id number] [facility] ECG 12 lead ECGon 09-12-2023 ECG 12 lead ECG [facility] [place] [address] [place] [address] Electrocardiograph Report Signed Patient: Kerry Gay MR#: [id number] 19 : 1955 Acct:[id number] Age/Sex: 67 / F ADM Date: 09/12/23 Loc: Room: [address] [place] [address] Type: ADM INOo Attending Dr: Elva Florian MD Ordering Provider: Haider Valenzuela DO Date of Service: 09/12/23 ECG/ECG 12 lead ECG: Chest Pain Copies to: Test Reason : Blood Pressure : / mmHG Vent. Rate : 136 BPM Atrial Rate : 272 BPM P-R Int : 000 ms QRS Dur : 090 ms QT Int : 366 ms P-R-T Axes : 111 064 259 degrees QTc Int : 550 ms Atrial flutter with 2:[address] abnormality, possible inferior subendocardial injury Abnormal ECG When compared with ECG of 12-DEC-2021 12:51, Atrial flutter has replaced Sinus rhythm Vent. rate has increased BY [address] now depressed in Inferior leads ST now depressed in Anterolateral leads T wave inversion now evident in Inferior leads T wave inversion now evident in Anterolateral leads Confirmed by HAIDER VALENZUELA DO ([id number]) on 09/12/2023 7:53:22 PM Referred By: Electronically Signed By:HAIDER VALENZUELA DO Transcribed By: MUS Signed By Haider Valenzuela DO 09/11 Normal [facility] Erythrocyte distribution wid th [Ratio] by Automated countOrdered By: Haider Valenzuela on 09-12-2023 Erythrocyte distribution width (RBC) [Ratio] 12.7 % Normal 11.9-15.3 [facility] Comment on above: Performed By: #### L H, LACTATE PYRUVAT, HOMOCYS PL, NATASHA SERUM, RA, PO, ZINC,WB, WEST [place]ANK, MORTEZA, CERULOP, RPR W RFX, LYME AB wRFX, SPE, ALDOLASE, NATASHA,URINE, VITB6, METH, UPE RAND #### [facility] , #### ALT, CK, AST, T4F, HSCRP, A1C WTH eA, ESR, TSH3, [id number] #### [facility] [address] [place] [id number] [place] Erythrocytes [#/volume] in B lood by Automated countOrdered By: Haider Valenzuela on 09-12-2023 RBC (Bld) [#/Vol] 5.16 10*6/uL High 3.60-5.00 [facility] Comment on above: Performed By: #### L H, LACTATE PYRUVAT, HOMOCYS PL, NATASHA SERUM, RA, PO, ZINC,WB, WEST [place], MORTEZA, CERULOP, RPR W RFX, LYME AB wRFX, SPE, ALDOLASE, NATASHA,URINE, VITB6, METH, UPE RAND #### [facility] , #### ALT, CK, AST, T4F, HSCRP, A1C WTH eA, ESR, TSH3, [id number] #### [facility] [address] [place] [id number] [place] Glucose Poct Glucometerson 0 09-12-2023 Glucose [Mass/Vol] 114 mg/dL Normal [facility] Comment on above: Result Comment: [place] Glucose Reference Range is dependent on time and content of last meal. Glucose of more than 200 mg/dL in a nonstressed, ambulatory subject supports the diagnosis of Diabetes Mellitus. PERFORMED BY: [place] [address] PATHOLOGIST LINE OPERATOR SADAF STANTON M.D. Performed By: #### A DDALBER, ELIZU #### [facility] [address] [place] [address] Glucose [Mass/volume] in Ser um or PlasmaOrdered By: Haider Valenzuela on 09-12-2023 Glucose [Mass/Vol] 150 mg/dL High 70-100 [facility] Comment on above: ADA recommended refe rence rangeRandom Glucose Reference Range is dependent on time and content of last meal. Glucose of more than 200 mg/dL in a nonstressed, ambulatory subject supports the diagnosis of Diabetes Mellitus. Result Comment: [facility] Glucose Reference Range is dependent on time and content of last meal. Glucose of more than 200 mg/dL in a nonstressed, ambulatory subject supports the diagnosis of Diabetes Mellitus. ADA recommended reference range Performed By: #### L H, LACTATE PYRUVAT, HOMOCYS PL, NATASHA SERUM, RA, PO, ZINC,WB, WEST [place], MORTEZA, CERULOP, RPR W RFX, LYME AB wRFX, SPE, ALDOLASE, NATASHA,URINE, VITB6, METH, UPE RAND #### [facility] , #### ALT, CK, AST, T4F, HSCRP, A1C WTH eA, ESR, TSH3, [id number] #### [facility] [address] [place], [place] [id number] [facility] HbA1c HPLC (Bld) [Mass fract ion]on 09-12-2023 HbA1c (Bld) [Mass fraction] 6.6 % [facility] Hematocrit [Volume Fraction] of Blood by Automated countOrdered By: Haider Valenzuela on 09-12-2023 Hematocrit (Bld) [Volume fraction] 49.3 % High 34.0-46.4 [facility] Comment on above: Performed By: #### L H, LACTATE PYRUVAT, HOMOCYS PL, NATASHA SERUM, RA, PO, ZINC,WB, WEST [place], MORTEZA, CERULOP, RPR W RFX, LYME AB wRFX, SPE, ALDOLASE, NATASHA,URINE, VITB6, METH, UPE RAND #### [facility] , #### ALT, CK, AST, T4F, HSCRP, A1C WTH eA, ESR, TSH3, [id number] #### [facility] [address] [place] [address] Hemoglobin [Mass/volume] in BloodOrdered By: Haider Valenzuela on 09-12-2023 Hemoglobin (Bld) [Mass/Vol] 16.9 g/dL High 11.8-15.4 [facility] Comment on above: Performed By: #### L H, LACTATE PYRUVAT, HOMOCYS PL, NATASHA SERUM, RA, PO, ZINC,WB, WEST TANK, MORTEZA, CERULOP, RPR W RFX, LYME AB wRFX, SPE, ALDOLASE, NATASHA,URINE, VITB6, METH, UPE RAND #### [facility] , #### ALT, CK, AST, T4F, HSCRP, A1C WT eA, ESR, TSH3, [id number] #### [facility] [address] [place] [address] INR in Platelet poor plasma by Coagulation assayOrdered By: Haider Valenzuela on 09-12-2023 INR Coag (PPP) [Relative time] 1.1 {INR} Normal [facility] Comment on above: INR Therapeutic Rang e A) Pre- and Peroperative OAT started two weeks before surgery. NOT HIP SURGERY: 1.5 - 2.5 HIP SURGERY: 2 - 3B) Primary and secondary prevention of venous THROMBOSIS: 2 - 3C) Active venous thrombosis, pulmonary embolismand prevention of recurrent venous thrombosis: 2 - 3D) Prevention of arterial thromboembolismincluding patients with mechanical heart valves: 3 - 4.5 Result Comment: INR Therapeutic Range A) Pre- and Peroperative OAT started two weeks before surgery. NOT HIP SURGERY: 1.5 - 2.5 HIP SURGERY: 2 - 3 B) Primary and secondary prevention of venous THROMBOSIS: 2 - 3 C) Active venous thrombosis, pulmonary embolism and prevention of recurrent venous thrombosis: 2 - 3 D) Prevention of arterial thromboembolism including patients with mechanical heart valves: 3 - 4.5 Performed By: #### A ELIZ FORMANU #### [address] Leukocytes [#/volume] correc deepika for nucleated erythrocytes in Blood by Automated counOrdered By: Haider Valenzuela on 09-12-2023 WBC corrected for nucl RBC Auto (Bld) [#/Vol] 9.8 10*3/uL 3.8-11.6 [facility] Leukocytes [#/volume] in Blo od by Automated countOrdered By: Haider Valenzuela on 09-12-2023 WBC (Bld) [#/Vol] 9.8 10*3/uL Normal 3.8-11.6 [facility] Comment on above: Performed By: #### L H, LACTATE PYRUVAT, HOMOCYS PL, NATASHA SERUM, RA, PO, ZINC,WB, WEST [place], MORTEZA, CERULOP, RPR W RFX, LYME AB wRFX, SPE, ALDOLASE, NATASHA,URINE, VITB6, METH, UPE RAND #### [facility] , #### ALT, CK, AST, T4F, HSCRP, A1C WTH eA, ESR, TSH3, [id number] #### [facility] [address] [place] [address] Lymphocytes [#/volume] in Bl ood by Automated countOrdered By: Haider Valenzuela on 09-12-2023 Lymphocytes (Bld) [#/Vol] 2.0 10*3/uL Normal 1.00-4.8 [facility] Comment on above: Performed By: #### L H, LACTATE PYRUVAT, HOMOCYS PL, NATASHA SERUM, RA, PO, ZINC,WB, WEST TANK, MORTEZA, CERULOP, RPR W RFX, LYME AB wRFX, SPE, ALDOLASE, NATASHA,URINE, VITB6, METH, UPE RAND #### [facility] , #### ALT, CK, AST, T4F, HSCRP, A1C WTH eA, ESR, TSH3, [id number] #### [facility] [address] Lymphocytes/100 leukocytes i n Blood by Automated countOrdered By: Haider Valenzuela on 09-12-2023 Lymphocytes/100 WBC (Bld) 20.2 % Normal . [facility] Comment on above: Performed By: #### L H, LACTATE PYRUVAT, HOMOCYS PL, NATASHA SERUM, RA, PO, ZINC,WB, WEST T[place], MORTEZA, CERULOP, RPR W RFX, LYME AB wRFX, SPE, ALDOLASE, NATASHA,URINE, VITB6, METH, UPE RAND #### [facility] , #### ALT, CK, AST, T4F, HSCRP, A1C WTH eA, ESR, TSH3, [id number] #### [facility] [address] MCH [Entitic mass] by Automa deepika countOrdered By: Haider Valenzuela on 09-12-2023 MCH (RBC) [Entitic mass] 32.7 pg Normal 24.7-34.3 [facility] Comment on above: Performed By: #### L H, LACTATE PYRUVAT, HOMOCYS PL, NATASHA SERUM, RA, PO, ZINC,WB, WEST [place], MORTEZA, CERULOP, RPR W RFX, LYME AB wRFX, SPE, ALDOLASE, NATASHA,URINE, VITB6, METH, UPE RAND #### [facility] , #### ALT, CK, AST, T4F, HSCRP, A1C WTH eA, ESR, TSH3, [id number] #### [facility] [address] MCHC Auto (RBC) [Mass/Vol]Or dered By: Haider Valenzuela on 09-12-2023 MCHC (RBC) [Mass/Vol] 34.2 g/dL 32.0-35.0 [facility] MCV [Entitic volume] by Auto mated countOrdered By: Haider Valenzuela on 09-12-2023 MCV (RBC) [Entitic vol] 95.6 fL Normal 80-100 [facility] Comment on above: Performed By: #### L H, LACTATE PYRUVAT, HOMOCYS PL, NATASHA SERUM, RA, PO, ZINC,WB, WEST [place], MORTEZA, CERULOP, RPR W RFX, LYME AB wRFX, SPE, ALDOLASE, NATASHA,URINE, VITB6, METH, UPE RAND #### [facility] , #### ALT, CK, AST, T4F, HSCRP, A1C WTH eA, ESR, TSH3, [id number] #### [facility] [address] Monocyte distribution width [Entitic volume] in Blood by AutomatedOrdered By: Haider Valenzuela on 09-12-2023 Monocyte distribution width Auto (Bld) [Entitic vol] 19.90 % 0.00-20.00 [facility] Neutrophils [#/volume] in Bl ood by Automated countOrdered By: Haider Valenzuela on 09-12-2023 Neutrophils (Bld) [#/Vol] 7.0 10*3/uL Normal 1.8-7.7 [facility] Comment on above: Performed By: #### L H, LACTATE PYRUVAT, HOMOCYS PL, NATASHA SERUM, RA, PO, ZINC,WB, WEST TANK, MORTEZA, CERULOP, RPR W RFX, LYME AB wRFX, SPE, ALDOLASE, NATASHA,URINE, VITB6, METH, UPE RAND #### [facility] , #### ALT, CK, AST, T4F, HSCRP, A1C WTH eA, ESR, TSH3, [id number] #### [facility] [address] No Panel InformationOrdered By: Haider Valenzuela on 09-12-2023 Estimated GFR (CKD-EPI) > 60.0 mL/Min [facility] Creatinine Clearance (Chem 73.11 [facility] No Panel Informationon 09-11 Bedside Glucose 151 [facility] Nucleated erythrocytes [Pres ence] in Blood by Automated countOrdered By: Haider Valenzuela on 09-12-2023 Nucleated RBC Auto Ql (Bld) 0.2 /100{WBC} 0-0.5 [facility] Partial Thromboplastin Timeo n 09-12-2023 aPTT Coag (Bld) [Time] 29.3 s Normal 25.1-36.5 [facility] Comment on above: Result Comment: A he matocrit value greater than 55% may lead to inaccurate results in coagulation testing. Patients having hematocrit values >55% require a special collection tube for coagulation studies. Please contact the laboratory at [phone] for redraw instructions. PERFORMED BY: [place] [address] PATHOLOGIST LINE OPERATOR SADAF STANTON M.D. Performed By: #### A DDSUSAN CAMPO #### [address] Platelet mean volume [Entiti c volume] in Blood by Automated countOrdered By: Haider Valenzuela on 09-12-2023 Platelet mean volume (Bld) [Entitic vol] 9.5 fL Normal 6.3-10.7 [facility] Comment on above: Performed By: #### L H, LACTATE PYRUVAT, HOMOCYS PL, NATASHA SERUM, RA, PO, ZINC,WB, WEST TANK, MORTEZA, CERULOP, RPR W RFX, LYME AB wRFX, SPE, ALDOLASE, NATASHA,URINE, VITB6, METH, UPE RAND #### [facility] , #### ALT, CK, AST, T4F, HSCRP, A1C WTH eA, ESR, TSH3, [id number] #### [facility] [address] [place] [address] [place] Platelets [#/volume] in Bloo d by Automated countOrdered By: Haider Valenzuela on 09-12-2023 Platelets (Bld) [#/Vol] 195 10*3/uL Normal 150-450 [facility] Comment on above: Performed By: #### L H, LACTATE PYRUVAT, HOMOCYS PL, NATASHA SERUM, RA, PO, ZINC,WB, WEST TANK, MORTEZA, CERULOP, RPR W RFX, LYME AB wRFX, SPE, ALDOLASE, NATASHA,URINE, VITB6, METH, UPE RAND #### [facility] , #### ALT, CK, AST, T4F, HSCRP, A1C WTH eA, ESR, TSH3, [id number] #### [facility] [address] Potassium [Moles/volume] in Serum or PlasmaOrdered By: Haider Valenzuela on 09-12-2023 Potassium [Moles/Vol] 4.0 mmol/L Normal 3.5-5.1 [facility] Comment on above: Performed By: #### L H, LACTATE PYRUVAT, HOMOCYS PL, NATASHA SERUM, RA, PO, ZINC,WB, WEST TANK, MORTEZA, CERULOP, RPR W RFX, LYME AB wRFX, SPE, ALDOLASE, NATASHA,URINE, VITB6, METH, UPE RAND #### [facility] , #### ALT, CK, AST, T4F, HSCRP, A1C WTH eA, ESR, TSH3, [id number] #### [address] Prothrombin time (PT)Ordered By: Haider Valenzuela on 09-12-2023 PT Coag (PPP) [Time] 12.7 s Normal 9.0-12.9 [facility] Comment on above: A hematocrit value g reater than 55% may lead to inaccurate results in coagulation testing. Patients having hematocrit values >55% require a special collection tube for coagulation studies. Please contact the laboratory at [phone] for redraw instructions. Result Comment: A he matocrit value greater than 55% may lead to inaccurate results in coagulation testing. Patients having hematocrit values >55% require a special collection tube for coagulation studies. Please contact the laboratory at [phone] for redraw instructions. Performed By: #### A DDONUAPLUS, CUU #### [address] Serum or plasma anion gap de terminationOrdered By: Haider Valenzuela on 09-12-2023 Anion gap [Moles/Vol] 15.0 mmol/L Normal 6.0-15.0 [facility] Comment on above: Performed By: #### L H, LACTATE PYRUVAT, HOMOCYS PL, NATASHA SERUM, RA, PO, ZINC,WB, WEST TANK, MORTEZA, CERULOP, RPR W RFX, LYME AB wRFX, SPE, ALDOLASE, NATASHA,URINE, VITB6, METH, UPE RAND #### [facility] , #### ALT, CK, AST, T4F, HSCRP, A1C WTH eA, ESR, TSH3, [id number] #### [facility] [address] [place] [address] [place] Sodium [Moles/volume] in Ser um or PlasmaOrdered By: Haider Valenzuela on 09-12-2023 Sodium [Moles/Vol] 138 mmol/L Normal 136-145 [facility] Comment on above: Performed By: #### L H, LACTATE PYRUVAT, HOMOCYS PL, NATASHA SERUM, RA, PO, ZINC,WB, WEST TANK, MORTEZA, CERULOP, RPR W RFX, LYME AB wRFX, SPE, ALDOLASE, NATASHA,URINE, VITB6, METH, UPE RAND #### [facility] , #### ALT, CK, AST, T4F, HSCRP, A1C WT eA, ESR, TSH3, [id number] #### [facility] [address] Troponin I High Sensitivityo n 09-12-2023 Troponin I High Sensitivity 7.3 pg/mL Normal 0.0-15.0 [facility] Comment on above: Result Comment: PERF ORMED BY: [place] [address] PATHOLOGIST LINE OPERATOR SDAAF STANTON M.D. Performed By: #### L H, LACTATE PYRUVAT, HOMOCYS PL, NATASHA SERUM, RA, PO, ZINC,WB, WEST TANK, MORTEZA, CERULOP, RPR W RFX, LYME AB wRFX, SPE, ALDOLASE, NATASHA,URINE, VITB6, METH, UPE RAND #### [facility] , #### ALT, CK, AST, T4F, HSCRP, A1C WTH eA, ESR, TSH3, [id number] #### [address] Troponin I.cardiac [Mass/vol ume] in Serum or Plasma by Detection limit <= 0.01 ng/Ordered By: Haider Valenzuela on 09-12-2023 Troponin I.cardiac DL <= 0.01 ng/mL [Mass/Vol] 7.3 pg/mL 0.0-15.0 [facility] Urea nitrogen [Mass/volume] in Serum or PlasmaOrdered By: Haider Valenzuela on 09-12-2023 Urea nitrogen [Mass/Vol] 11 mg/dL Normal 7-25 [facility] Comment on above: Performed By: #### L H, LACTATE PYRUVAT, HOMOCYS PL, NATASHA SERUM, RA, PO, ZINC,WB, WEST TANK, MORTEZA, CERULOP, RPR W RFX, LYME AB wRFX, SPE, ALDOLASE, NATASHA,URINE, VITB6, METH, UPE RAND #### [facility] , #### ALT, CK, AST, T4F, HSCRP, A1C WTH eA, ESR, TSH3, [id number] #### [address] XR chest 2V*on 09-12-2023 XR chest 2V* [facility] [place] [place] [address] XRay Report Signed Patient: Kerry Gay MR#: [id number] 19 : 1955 Acct:[id number] Age/Sex: 67 / F ADM Date: 09/12/23 Loc: ER Room: Type: [facility] ER Attending Dr: Copies to: Haider Valenzuela DO Ordering Provider: Haider Valenzuela DO Date of Service: 09/12/23 XR/XR chest 2V*: Chest Pain Chest 2 views CLINICAL HISTORY: Intermittent chest pain for 2 weeks. COMPARISON: Lung screening CT 07/17/2023 FINDINGS: Heart normal size. Lungs are clear. No free air. XR/XR chest 2V* IMPRESSION: NO ACUTE CARDIOPULMONARY ABNORMALITY. Impression dictated by: Edgar Segovia Jr., Nancy09/12/2023 3:30 PM Dictation Location: [place] [address] Transcribed By: [facility] 09/12/23 1530 Dictated By: Edgar Segovia Jr, DO 09/12/23 1529 Signed By: 09/12/23 1530 Normal [facility] Alanine aminotransferase [En zymatic activity/volume] in Serum or PlasmaOrdered By: Angelique Russell on 09-05-2023 ALT [Catalytic activity/Vol] 19 U/L Normal 7-52 [facility] Comment on above: Performed By: #### B 12, LIPIDBETSY, CMP #### [facility] [address] [place] [address] Albumin [Mass/volume] in Ser um or Plasma by Bromocresol green (BCG) dye binding methoOrdered By: Angelique Russell on 09-05-2023 Albumin BCG dye [Mass/Vol] 4.3 g/dL 3.5-5.7 [facility] Alkaline phosphatase [Enzyma tic activity/volume] in Serum or PlasmaOrdered By: Angelique Russell on 09-05-2023 ALP [Catalytic activity/Vol] 81 U/L Normal 34-104 [facility] Comment on above: Performed By: #### B 12, LIPIDBETSY, CMP #### [facility] [address] [place] [address] [place] Aspartate aminotransferase [ Enzymatic activity/volume] in Serum or PlasmaOrdered By: Angelique Russell on 09-05-2023 AST [Catalytic activity/Vol] 26 U/L Normal 13-39 [facility] Comment on above: Performed By: #### B 12, LIPID URMACRET, CMP #### [facility] [address] [place] [address] [place] Bilirubin.total [Mass/volume ] in Serum or PlasmaOrdered By: Angelique Russell on 09-05-2023 Bilirubin [Mass/Vol] 0.7 mg/dL Normal 0.3-1.0 [facility] Comment on above: Performed By: #### B 12, LIPID, URMACRERAT, CMP #### [facility] [address] [place] [address] [place] Calcium [Mass/volume] in Ser um or PlasmaOrdered By: Tondra Mapus on 09-05-2023 Calcium [Mass/Vol] 10.2 mg/dL Normal 8.6-10.3 [facility] Comment on above: Performed By: #### B 12, LIPID, URMACRERAT, CMP #### [facility] [address] Carbon dioxide, total [Moles /volume] in Serum or PlasmaOrdered By: Tondra Mapus on 09-05-2023 CO2 [Moles/Vol] 28.6 mmol/L Normal 21.0-31.0 [facility] Comment on above: Performed By: #### B 12, LIPID, URMACRERAT, CMP #### [facility] [address] [place] [address] [place] Chloride [Moles/volume] in S elliot or PlasmaOrdered By: Tondra Mapus on 09-05-2023 Chloride [Moles/Vol] 102 mmol/L Normal 98-107 [facility] Comment on above: Performed By: #### B 12, LIPID, URMACRERAT, CMP #### [facility] [address] [place] [address] [place] Cholesterol [Mass/volume] in Serum or PlasmaOrdered By: Tondra Mapus on 09-05-2023 Cholesterol [Mass/Vol] 143 mg/dL Normal 140-200 [facility] Comment on above: Chol less than 200 m g/dl low riskChol 201-239 mg/dl borderline riskChol 240 mg/dl and greater high risk Result Comment: Chol less than 200 mg/dl low risk Chol 201-239 mg/dl borderline risk Chol 240 mg/dl and greater high risk Performed By: #### B 12, LIPID, URMACRERAT, CMP #### [facility] [address] Cholesterol in LDL Calc [Mas s/Vol]Ordered By: Angelique Russell on 09-05-2023 Cholesterol in LDL [Mass/Vol] 62 mg/dL 0-100 [facility] Comment on above: LDL ATP III CLASSIFI CATIONLDL less than 100 mg/dL OptimalLDL 100-129 mg/dL Near or above optimalLDL 130-159 mg/dL Borderline highLDL 160-189 mg/dL HighLDL greater than 189 mg/dL Very high Cholesterol in VLDL Calc [Ma ss/Vol]Ordered By: Angelique Russell on 09-05-2023 Cholesterol in VLDL [Mass/Vol] 51 mg/dL [facility] Comprehensive Metabolic Pane babita 09-05-2023 Albumin [Mass/Vol] 4.3 g/dL Normal 3.5-5.7 [facility] Comment on above: Performed By: #### B 12, LIPID, URMACRERAT, CMP #### [facility] [address] [place] [address] [place] GFR/1.73 sq M.predicted MDRD (S/P/Bld) [Vol rate/Area] mL/min/{1.73_m2} Normal [facility] Comment on above: Performed By: #### B 12, LIPID, URMACRERAT, CMP #### [facility] [address] [place] [address] [place] Creatinine [Mass/volume] in Serum or PlasmaOrdered By: Angelique Russell on 09-05-2023 Creatinine [Mass/Vol] 0.91 mg/dL Normal 0.60-1.20 [facility] Comment on above: Performed By: #### B 12, LIPID, URMACRERAT, CMP #### [facility] [address] [place] [address] [place] Creatinine [Mass/volume] in UrineOrdered By: Angelique Russell on 09-05-2023 Creatinine (U) [Mass/Vol] 118.0 mg/dL [facility] Comment on above: No reference range e stablished Glucose [Mass/volume] in Ser um or PlasmaOrdered By: Angelique Russell on 09-05-2023 Glucose [Mass/Vol] 197 mg/dL High 70-100 [facility] Comment on above: ADA recommended refe rence rangeRandom Glucose Reference Range is dependent on time and content of last meal. Glucose of more than 200 mg/dL in a nonstressed, ambulatory subject supports the diagnosis of Diabetes Mellitus. Result Comment: [place] om Glucose Reference Range is dependent on time and content of last meal. Glucose of more than 200 mg/dL in a nonstressed, ambulatory subject supports the diagnosis of Diabetes Mellitus. ADA recommended reference range Performed By: #### B 12, LIPID, URMACRERAT, CMP #### [facility] [address] Lipid Panelon 09-05-2023 LDL Cholesterol,Calculated 62 mg/dL Normal 0-100 [facility] Comment on above: Result Comment: LDL ATP III CLASSIFICATION LDL less than 100 mg/dL Optimal LDL 100-129 mg/dL Near or above optimal LDL 130-159 mg/dL Borderline high LDL 160-189 mg/dL High LDL greater than 189 mg/dL Very high Performed By: #### B 12, LIPID, URMACRERAT, CMP #### [facility] [address] Triglyceride w/Reflex 256 mg/dL High 0-149 [facility] Comment on above: Result Comment: TRIG ATP III CLASSIFICATION TRIG less than 150 mg/dL Normal TRIG 150-199 mg/dL Borderline high TRIG 200-500 mg/dL High TRIG greater than 500 mg/dL Very high Standard traceable to the Center for Disease Conrtrol and Prevention (CDC) test method. Performed By: #### B 12, LIPID, URMACRERAT, CMP #### [facility] [address] [place] [id number] [facility] VLDL CHOLESTEROL 51 mg/dL Normal [facility] Comment on above: Performed By: #### B 12, LIPID, URMACRERAT, CMP #### [facility] [address] [place] [id number] [facility] MicroAlb Creat Ratio,Uon Creatinine, Urine (Random) 118.0 mg/dL Normal [facility] Comment on above: Result Comment: No r eference range established Performed By: #### B 12, LIPID, URMACRERAT, CMP #### [address] Microalbumin/Creatinine Ratio 155.0 mg/g High 0.0-30.0 [facility] Comment on above: Result Comment: 30-3 00 mg/g indicates an increased risk for diabetic nephropathy. Greater than 300 mg/g is consistent with clinical nephropathy. (Am. J. Kidney Disease 1995, 25:107) PERFORMED BY: [place] [address] PATHOLOGIST LINE OPERATOR SADAF STANTON M.D. Performed By: #### B 12, LIPID, URMACRERAT, CMP #### [address] Microalbumin [Mass/volume] i n UrineOrdered By: Tondra Mapus on 09-05-2023 Albumin DL <= 20 mg/L (U) [Mass/Vol] 18.4 mg/dL High 0.0-1.8 [facility] Comment on above: Performed By: #### B 12, LIPID, URMACRERAT, CMP #### [facility] [address] [place] [address] No Panel InformationOrdered By: Tondra Mapus on 09-05-2023 Estimated GFR (CKD-EPI) > 60.0 mL/Min [facility] Creatinine Clearance (Chem N/A [facility] Potassium [Moles/volume] in Serum or PlasmaOrdered By: Tondra Mapus on 09-05-2023 Potassium [Moles/Vol] 4.2 mmol/L Normal 3.5-5.1 [facility] Comment on above: Performed By: #### B 12, LIPID, URMACRERAT, CMP #### [address] Protein [Mass/volume] in Ser um or PlasmaOrdered By: Tondra Mapus on 09-05-2023 Protein [Mass/Vol] 7.0 g/dL Normal 6.4-8.9 [facility] Comment on above: Performed By: #### B 12, LIPID, URMACRERAT, CMP #### [facility] [address] Serum globulin measurement b y calculation (mass/volume)Ordered By: Angelique Russell on 09-05-2023 Globulin (S) [Mass/Vol] 2.7 g/dL Normal [facility] Comment on above: Performed By: #### B 12, LIPID, URMACRERAT, CMP #### [facility] [address] Serum or plasma albumin/glob ulin mass ratioOrdered By: Angelique Russell on 09-05-2023 Albumin/Globulin [Mass ratio] 1.6 {ratio} [facility] Comment on above: Performed By: #### B 12, LIPID, URMACRERAT, CMP #### [address] Serum or plasma anion gap de terminationOrdered By: Angelique Russell on 09-05-2023 Anion gap [Moles/Vol] 13.6 mmol/L Normal 6.0-15.0 [facility] Comment on above: Performed By: #### B 12, LIPID, URMACRERAT, CMP #### [facility] [address] [place] [address] Serum or plasma high density lipoprotein (HDL) cholesterol measurementOrdered By: Angelique Russell on 09-05-2023 Cholesterol in HDL [Mass/Vol] 30 mg/dL Normal 23-92 [facility] Comment on above: HDL CHOL ATP-III CLA SSIFICATION Cardiovascular RiskHDL > or equal to 60 mg/dL LOWHDL < 40 mg/dL HIGH Result Comment: HDL CHOL ATP-III CLASSIFICATION Cardiovascular Risk HDL > or equal to 60 mg/dL LOW HDL < 40 mg/dL HIGH Performed By: #### B 12, LIPID, URMACRERAT, CMP #### [facility] [address] [place] [address] Serum or plasma total choles terol/high density lipoprotein (HDL) cholesterol mass ratOrdered By: Angelique Russell on 09-05-2023 Cholesterol.total/Karla sterol in HDL [Mass ratio] 4.8 {ratio} Normal <5.0 [facility] Comment on above: Performed By: #### B 12, LIPIDBETSY, DOMINICK #### [facility] [address] Sodium [Moles/volume] in Ser um or PlasmaOrdered By: Juliodra Yvonne on 09-05-2023 Sodium [Moles/Vol] 140 mmol/L Normal 136-145 [facility] Comment on above: Performed By: #### B 12, LIPID, URMACTATIANA, CMP #### [facility] [address] Triglyceride [Mass/volume] i n Serum or PlasmaOrdered By: Tondra Leonardous on 09-05-2023 Triglyceride [Mass/Vol] 256 mg/dL High 0-149 [facility] Comment on above: TRIG ATP III CLASSIF ICATIONTRIG less than 150 mg/dL NormalTRIG 150-199 mg/dL Borderline highTRIG 200-500 mg/dL High TRIG greater than 500 mg/dL Very highStandard traceable to the Center for Disease Conrtrol and Prevention (CDC) test method. Urea nitrogen [Mass/volume] in Serum or PlasmaOrdered By: Angelique Russell on 09-05-2023 Urea nitrogen [Mass/Vol] 12 mg/dL Normal 7-25 [facility] Comment on above: Performed By: #### B 12, LIPID URMACTATIANA, CMP #### [facility] [address] Urine microalbumin/creatinin e mass ratioOrdered By: Tondra Map on 09-05-2023 Albumin/Creatinine DL <= 20 mg/L (U) [Mass ratio] 155.0 mg/g High 0.0-30.0 [facility] Comment on above: 30-300 mg/g indicate s an increased risk for diabetic nephropathy. Greater than 300 mg/g is consistent with clinical nephropathy. (Am. J. Kidney Disease 1995, 25:107) Vitamin B12 ser/plasOrdered By: Angelique Russell on 09-05-2023 Cobalamin (Vitamin B12) [Mass/Vol] 255 pg/mL Normal 180-914 [facility] Comment on above: Result Comment: PERF ORMED BY: [place] [address] PATHOLOGIST LINE OPERATOR SADAF STANTON M.D. Performed By: #### B 12, LIPID, URMACRERAT, CMP #### [address] lung screeningon 07-25-19 CT lung screening [facility] [place] [address] [place] [address] CT Scan Report Signed Patient: Kerry Gay MR#: [id number] 19 : 1955 Acct:[id number] Age/Sex: 67 / F ADM Date: 07/25/23 Loc: [facility] Room: Type: [facility] Attending Dr: Sandra Keita DO Copies to: Sandra Keita DO Ordering Provider: Sandra Keita DO Date of Service: 07/25/23 CT/CT lung screening: [id number], f17.210 CT CHEST WITHOUT CONTRAST, LOW DOSE SCREENING: CLINICAL DATA: A 67-year old current smoker, smoking for 48 pack-years. COMPARISON: Lung screening CT 08/22/2022 TECHNIQUE: Noncontrast axial CT scan images of the chest were obtained under the low dose screening CT protocol. Coronal and sagittal reconstructed images were also submitted. FINDINGS: Mediastinum : Suboptimal evaluation due to low-dose technique. Thoracic aorta appears normal in caliber. Pulmonary trunk appears nondilated. No pericardial effusion. No lymphadenopathy. The esophagus is grossly unremarkable. A millimeter calcified nodule right lobe of the thyroid gland. Lungs: No focal consolidation, pneumothorax or pleural effusion. Trachea and distal airways appear patent. Diffuse bronchial wall thickening. Stable 4 mm noncalcified pulmonary nodule left lower lobe series 2 image 170. Stable 3 mm noncalcified pulmonary nodule left upper lobe series 2 image 85. 3 mm noncalcified pulmonary nodule right upper lobe series 2 image 89. Stable 3 mm subpleural nodule right lower lobe series 2 image 93. No new or enlarging suspicious pulmonary nodules. Upper abdomen: No acute findings. Bony thorax and chest wall: Soft tissues surrounding the chest wall demonstrate no acute findings. Osseous structures demonstrate degenerative change. CT/CT lung screening IMPRESSION: NO NEW OR ENLARGING SUSPICIOUS PULMONARY NODULES. LUNG - RADS Version 1.0 Assessment: Category 2, Benign appearance or behavior. Management: Continue annual lung screening with LDCT in 12 months. Impression dictated by: Edgar Segovia Jr., D.O.07/25/2023 2:04 PM Dictation Location: [place] [address] Transcribed By: [facility] 07/25/23 1404 Dictated By: Edgar Segovia Jr, DO 07/25/23 1400 Signed By: 07/25/23 1404 Normal [facility] Laboratory - Hematology and Cell countson 06-12-2023 HbA1c (Bld) [Mass fraction] 7.2 % [facility] No Panel Informationon 06-12 Bedside Glucose 197 [facility] A1C HEMOGLOBINon 01-07-2023 HbA1c (Bld) [Mass fraction] 6.3 % [facility] Other Glucose - FINGER STICKon Glucose [Mass/Vol] 196 mg/dL [facility] Other HbA1c (Bld) [Mass fraction]o n 01-07-2023 A1C HEMOGLOBIN [facility] Other A1C HEMOGLOBINon 09-27-2022 HbA1c (Bld) [Mass fraction] 6.6 % [facility] Other Glucose - FINGER STICKon Glucose [Mass/Vol] 128 mg/dL [facility] Other HbA1c (Bld) [Mass fraction]o n 09-27-2022 A1C HEMOGLOBIN [facility] Other A1C HEMOGLOBINon 06-18-2022 HbA1c (Bld) [Mass fraction] 7.1 % [facility] Other Glucose - FINGER STICKon Glucose [Mass/Vol] 219 mg/dL [facility] Other HbA1c (Bld) [Mass fraction]o n 06-18-2022 A1C HEMOGLOBIN [facility] Other A1C HEMOGLOBINon 01-09-2022 HbA1c (Bld) [Mass fraction] 7.7 % [facility] Other Glucose - FINGER STICKon Glucose [Mass/Vol] 242 mg/dL [facility] Other HbA1c (Bld) [Mass fraction]o n 01-09-2022 A1C HEMOGLOBIN [facility] Other Consultation Noteon 12-26-19 Consultation Note [id number]: 127 [facility] Insurance Correspondence Off iceon 12-20-2021 Insurance Correspondence Office [id number]: 127 Normal [facility] Urine culture routineOrdered By: Milo Watters on 12-19-2021 Bacteria identified Cx Nom (U) Zeny albicans [facility] Albumin [Mass/volume] in Ser um or PlasmaOrdered By: Milo Watters on 12-17-2021 Albumin [Mass/Vol] 3.4 g/dL 3.2-5.5 [facility] Automated erythrocytes count in urine sediment (number/area)Ordered By: Milo Watters on 12-17-2021 RBC Auto (Urine sed) [#/Area] 3-4 [HPF] 0-4 [facility] Automated leukocytes count i n urine sediment (number/area)Ordered By: Milo Watters on 12-17-2021 WBC Auto (Urine sed) [#/Area] 50-100 [HPF] 0-4 [facility] Automated urine hyaline cast s count (number/volume)Ordered By: Milo Watters on 12-17-2021 Hyaline casts Auto (U) [#/Vol] None seen [LPF] 0-1 [facility] Basophils Auto (Bld) [#/Vol] Ordered By: Milo Watters on 12-17-2021 Basophils (Bld) [#/Vol] 0.1 10*3/uL 0.0-0.2 [facility] Basophils/100 WBC Auto (Bld) Ordered By: Milo Watters on 12-17-2021 Basophils/100 WBC (Bld) 0.5 % . [facility] Bilirubin Test strip Ql (U)O rdered By: Milo Watters on 12-17-2021 Bilirubin Ql (U) Negative Negative [facility] Blood hemoglobin measurement (mass/volume)Ordered By: Milo Watters on 12-17-2021 Hemoglobin (Bld) [Mass/Vol] 16.1 g/dL 11.8-15.4 [facility] Blood leukocytes automated c ount (number/volume)Ordered By: Milo Watters on 12-17-2021 WBC (Bld) [#/Vol] 10.7 10*3/uL 4.5-11.0 [facility] Casts typing in urine sedime nt by light microscopyOrdered By: Milo Watters on 12-17-2021 Casts LM Nom (Urine sed) None seen [LPF] None Seen [facility] Color Auto (U)Ordered By: Jonh Watters on 12-17-2021 Color (U) Yellow Yellow [facility] Creatinine and Glomerular fi ltration rate.predicted panel (S/P/Bld)Ordered By: Milo Watters on 12-17-2021 Creatinine [Mass/Vol] 0.89 mg/dL 0.44-1.03 [facility] Eosinophils Auto (Bld) [#/Vo l]Ordered By: Milo Watters on 12-17-2021 Eosinophils (Bld) [#/Vol] 0.1 10*3/uL 0.0-0.45 [facility] Eosinophils/100 WBC Auto (Bl d)Ordered By: Milo Watters on 12-17-2021 Eosinophils/100 WBC (Bld) 1.0 % . [facility] Erythrocyte distribution wid th Auto (RBC) [Ratio]Ordered By: Milo Watters on 12-17-2021 Erythrocyte distribution width (RBC) [Ratio] 13.1 % 11.9-15.3 [facility] Estimated glomerular filtrat ion rate (GFR) non- AmericanOrdered By: Milo Watters on 12-17-2021 GFR/1.73 sq M.predicted among non-blacks MDRD (S/P/Bld) [Vol rate/Area] > 60 mL/Min [facility] Globulin Calc (S) [Mass/Vol] Ordered By: Milo Watters on 12-17-2021 Globulin (S) [Mass/Vol] 3.9 g/dL [facility] Hematocrit Auto (Bld) [Volum e fraction]Ordered By: Milo Watters on 12-17-2021 Hematocrit (Bld) [Volume fraction] 48.5 % 34.0-46.4 [facility] Ketones Auto test strip (U) [Mass/Vol]Ordered By: Milo Watters on 12-17-2021 Ketones (U) [Mass/Vol] Negative Negative [facility] - Hematology and Cell countsOrdered By: Milo Watters on 12-17-2021 Nucleated RBC/100 WBC (Bld) [Ratio] 0.1 % 0-0.5 [facility] Lymphocytes Auto (Bld) [#/Vo l]Ordered By: Milo Watters on 12-17-2021 Lymphocytes (Bld) [#/Vol] 1.5 10*3/uL 1.00-4.8 [facility] Lymphocytes/100 WBC Auto (Bl d)Ordered By: Milo Watters on 12-17-2021 Lymphocytes/100 WBC (Bld) 14.2 % . [facility] MCH Auto (RBC) [Entitic mass ]Ordered By: Milo Watters on 12-17-2021 MCH (RBC) [Entitic mass] 31.4 pg 24.7-34.3 [facility] MCHC Auto (RBC) [Mass/Vol]Or dered By: Milo Watters on 12-17-2021 MCHC (RBC) [Mass/Vol] 33.2 g/dL 32.0-35.0 [facility] MCV Auto (RBC) [Entitic vol] Ordered By: Milo Watters on 12-17-2021 MCV (RBC) [Entitic vol] 94.6 fL 80-100 [facility] Monocytes Auto (Bld) [#/Vol] Ordered By: Milo Watters on 12-17-2021 Monocytes (Bld) [#/Vol] 0.8 10*3/uL 0.0-0.8 [facility] Monocytes/100 WBC Auto (Bld) Ordered By: Milo Watters on 12-17-2021 Monocytes/100 WBC (Bld) 7.5 % . [facility] Neutrophils Auto (Bld) [#/Vo l]Ordered By: Milo Watters on 12-17-2021 Neutrophils (Bld) [#/Vol] 8.2 10*3/uL 1.8-7.7 [facility] Neutrophils/100 WBC Auto (Bl d)Ordered By: Milo Watters on 12-17-2021 Neutrophils/100 WBC (Bld) 76.8 % . [facility] Nitrite Test strip Ql (U)Ord ered By: Milo Watters on 12-17-2021 Nitrite Ql (U) Negative Negative [facility] No Panel InformationOrdered By: Milo Watters on 12-17-2021 Estimated GFR () > 60 mL/Min [facility] Comment on above: GFR estimated refere nce range: According to KDOQI guidelines, <60 ml/min/1.73m2 is sufficient to diagnose a patient with chronic kidney disease. Pharmacy Creatinine Clearance (Chem 70.55 [facility] Platelet mean volume Auto (B ld) [Entitic vol]Ordered By: Milo Watters on 12-17-2021 Platelet mean volume (Bld) [Entitic vol] 8.7 fL 6.3-10.7 [facility] Platelets Auto (Bld) [#/Vol] Ordered By: Milo Watters on 12-17-2021 Platelets (Bld) [#/Vol] 239 10*3/uL 150-450 [facility] Protein Auto test strip (U) [Mass/Vol]Ordered By: Milo Watters on 12-17-2021 Protein (U) [Mass/Vol] Trace mg/dL Negative [facility] Protein [Mass/volume] in Ser um or PlasmaOrdered By: Milo Watters on 12-17-2021 Protein [Mass/Vol] 7.3 g/dL 6.1-7.9 [facility] RBC Auto (Bld) [#/Vol]Ordere d By: Milo Watters on 12-17-2021 RBC (Bld) [#/Vol] 5.13 10*6/uL 3.60-5.00 [facility] Serum or plasma alanine tucker otransferase measurement without P-5'-P (enzymatic activiOrdered By: Milo Watters on 12-17-2021 ALT No additional P-5'-P [Catalytic activity/Vol] 38 U/L 10-60 [facility] Serum or plasma albumin/glob ulin mass ratioOrdered By: Milo Watters on 12-17-2021 Albumin/Globulin [Mass ratio] 0.9 {ratio} [facility] Serum or plasma alkaline yue sphatase measurement (enzymatic activity/volume)Ordered By: Milo Watters on 12-17-2021 ALP [Catalytic activity/Vol] 109 U/L 32-92 [facility] Serum or plasma aspartate am inotransferase measurement (enzymatic activity/volume)Ordered By: Milo Watters on 12-17-2021 AST [Catalytic activity/Vol] 43 U/L 10-42 [facility] Serum or plasma calcium steve urement (mass/volume)Ordered By: Milo Watters on 12-17-2021 Calcium [Mass/Vol] 10.0 mg/dL 8.2-10.2 [facility] Serum or plasma chloride coleman surement (moles/volume)Ordered By: Milo Watters on 12-17-2021 Chloride [Moles/Vol] 102 mmol/L 95-114 [facility] Serum or plasma glucose steve urement (mass/volume)Ordered By: Milo Watters on 12-17-2021 Glucose [Mass/Vol] 231 mg/dL 70-100 [facility] Comment on above: ADA recommended refe rence range Random Glucose Reference Range is dependent on time and content of last meal. Glucose of more than 200 mg/dL in a nonstressed, ambulatory subject supports the diagnosis of Diabetes Mellitus. Serum or plasma potassium me asurement (moles/volume)Ordered By: OSORIO WHITE on 12-17-2021 Potassium [Moles/Vol] 3.6 mmol/L 3.5-5.1 [facility] Serum or plasma sodium measu rement (moles/volume)Ordered By: Milo Watters on 12-17-2021 Sodium [Moles/Vol] 137 mmol/L 136-146 [facility] Serum or plasma total biliru bin measurement (mass/volume)Ordered By: Milo Watters on 08-21-2022 Bilirubin [Mass/Vol] 0.8 mg/dL 0.3-1.2 [facility] Serum or plasma total carbon dioxide measurement (moles/volume)Ordered By: Milo Watters on 12-17-2021 CO2 [Moles/Vol] 24.6 mmol/L 22.0-30.0 [facility] Serum or plasma urea nitroge n measurement (mass/volume)Ordered By: Milo Watters on 12-17-2021 Urea nitrogen [Mass/Vol] 8 mg/dL 9- [facility] Specific gravity Auto test s trip (U) [Rel density]Ordered By: Milo Watters on 12-17-2021 Specific gravity (U) [Rel density] 1.030 1.001-1.03 0 [facility] Squamous epithelial cells de tection in urine sediment by light microscopyOrdered By: Milo Watters on 12-17-2021 Epithelial cells.squamous LM Ql (Urine sed) None seen [HPF] 0-2 [facility] Urine bacteria detection by automated methodOrdered By: Milo Watters on 12-17-2021 Bacteria Auto Ql (U) Rare None Seen [facility] Urine clarity by refractomet ry automatedOrdered By: Milo Watters on 12-17-2021 Clarity Refractometry automated (U) Clear Clear [facility] Urine glucose measurement by automated test strip (mass/volume)Ordered By: Milo Watters on 12-17-2021 Glucose Auto test strip (U) [Mass/Vol] >=1000 mg/dL Normal [facility] Urine hemoglobin detection b y automated test stripOrdered By: Milo Watters on 12-17-2021 Hemoglobin Auto test strip Ql (U) 1+ Negative [facility] Urine leukocyte esterase det ection by automated test stripOrdered By: Milo Watters on 12-17-2021 Leukocyte esterase Auto test strip Ql (U) 3+ Negative [facility] Urobilinogen Auto test strip (U) [Mass/Vol]Ordered By: Milo Watters on 12-17-2021 Urobilinogen (U) [Mass/Vol] Normal mg/dL Normal [facility] Yeast detection in urine sed iment by light microscopyOrdered By: Milo Watters on 12-17-2021 Yeast LM Ql (Urine sed) 3+ [HPF] None Seen [facility] pH Auto test strip (U)Ordere d By: Milo Watters on 12-17-2021 pH (U) 6.0 [pH] 5.0-9.0 [facility] Bacterial blood cultureOrder ed By: Shira Stephen on 12-14-2021 Bacteria identified Cx Nom (Bld) NO GROWTH 5 DAYS [facility] Basophils Auto (Bld) [#/Vol] Ordered By: Walter Montgomery on 12-13-2021 Basophils (Bld) [#/Vol] 0.0 10*3/uL 0.0-0.2 [facility] Basophils/100 WBC Auto (Bld) Ordered By: Walter Montgomery on 12-13-2021 Basophils/100 WBC (Bld) 0.1 % . [facility] Blood hemoglobin measurement (mass/volume)Ordered By: Walter Montgomery on 12-13-2021 Hemoglobin (Bld) [Mass/Vol] 14.2 g/dL 11.8-15.4 [facility] Blood leukocytes automated c ount (number/volume)Ordered By: Walter Montgomery on 12-13-2021 WBC (Bld) [#/Vol] 9.4 10*3/uL 4.5-11.0 [facility] Consultation Noteon 12-14-19 Consultation Note [id number]: 127 Normal [facility] Creatinine and Glomerular fi ltration rate.predicted panel (S/P/Bld)Ordered By: Walter Montgomery on 12-13-2021 Creatinine [Mass/Vol] 0.75 mg/dL 0.44-1.03 [facility] Direct bilirubin measurement Ordered By: Walter Montgomery on 12-13-2021 Bilirubin.direct [Mass/Vol] 0.2 mg/dL 0.0-0.4 [facility] Eosinophils Auto (Bld) [#/Vo l]Ordered By: Walter Montgomery on 12-13-2021 Eosinophils (Bld) [#/Vol] 0.0 10*3/uL 0.0-0.45 [facility] Eosinophils/100 WBC Auto (Bl d)Ordered By: Walter Montgomery on 12-13-2021 Eosinophils/100 WBC (Bld) 0.0 % . [facility] Erythrocyte distribution wid th Auto (RBC) [Ratio]Ordered By: Walter Montgomery on 12-13-2021 Erythrocyte distribution width (RBC) [Ratio] 12.9 % 11.9-15.3 [facility] Estimated glomerular filtrat ion rate (GFR) non- AmericanOrdered By: Walter Montgomery on 12-13-2021 GFR/1.73 sq M.predicted among non-blacks MDRD (S/P/Bld) [Vol rate/Area] > 60 mL/Min [facility] Glucose Glucometer (BldC) [M ass/Vol]Ordered By: Wilmer Vance on 12-13-2021 Glucose [Mass/Vol] 230 mg/dL [facility] Comment on above: Random Glucose Refer ence Range is dependent on time and content of last meal. Glucose of more than 200 mg/dL in a nonstressed, ambulatory subject supports the diagnosis of Diabetes Mellitus. Hematocrit Auto (Bld) [Volum e fraction]Ordered By: Walter Montgomery on 12-13-2021 Hematocrit (Bld) [Volume fraction] 41.9 % 34.0-46.4 [facility] - Hematology and Cell countsOrdered By: Walter Montgomery on 12-13-2021 Nucleated RBC/100 WBC (Bld) [Ratio] 0.0 % 0-0.5 [facility] Lymphocytes Auto (Bld) [#/Vo l]Ordered By: Walter Montgomery on 12-13-2021 Lymphocytes (Bld) [#/Vol] 0.7 10*3/uL 1.00-4.8 [facility] Lymphocytes/100 WBC Auto (Bl d)Ordered By: Walter Montgomery on 12-13-2021 Lymphocytes/100 WBC (Bld) 7.7 % . [facility] MCH Auto (RBC) [Entitic mass ]Ordered By: Walter Montgomery on 12-13-2021 MCH (RBC) [Entitic mass] 32.2 pg 24.7-34.3 [facility] MCHC Auto (RBC) [Mass/Vol]Or dered By: Walter Montgomery on 12-13-2021 MCHC (RBC) [Mass/Vol] 33.9 g/dL 32.0-35.0 [facility] MCV Auto (RBC) [Entitic vol] Ordered By: Walter Montgomery on 12-13-2021 MCV (RBC) [Entitic vol] 95.1 fL 80-100 [facility] Monocytes Auto (Bld) [#/Vol] Ordered By: Walter Montgomery on 12-13-2021 Monocytes (Bld) [#/Vol] 0.2 10*3/uL 0.0-0.8 [facility] Monocytes/100 WBC Auto (Bld) Ordered By: Walter Montgomery on 12-13-2021 Monocytes/100 WBC (Bld) 1.8 % . [facility] Neutrophils Auto (Bld) [#/Vo l]Ordered By: Walter Montgomery on 12-13-2021 Neutrophils (Bld) [#/Vol] 8.5 10*3/uL 1.8-7.7 [facility] Neutrophils/100 WBC Auto (Bl d)Ordered By: Walter Montgomery on 12-13-2021 Neutrophils/100 WBC (Bld) 90.4 % . [facility] No Panel InformationOrdered By: Walter Montgomery on 12-13-2021 Estimated GFR () > 60 mL/Min [facility] Comment on above: GFR estimated refere nce range: According to KDOQI guidelines, <60 ml/min/1.73m2 is sufficient to diagnose a patient with chronic kidney disease. Pharmacy Creatinine Clearance (Chem 84.79 [facility] Platelet mean volume Auto (B ld) [Entitic vol]Ordered By: Walter Montgomery on 12-13-2021 Platelet mean volume (Bld) [Entitic vol] 9.3 fL 6.3-10.7 [facility] Platelets Auto (Bld) [#/Vol] Ordered By: Walter Montgomery on 12-13-2021 Platelets (Bld) [#/Vol] 178 10*3/uL 150-450 [facility] RBC Auto (Bld) [#/Vol]Ordere d By: Walter Montgomery on 12-13-2021 RBC (Bld) [#/Vol] 4.41 10*6/uL 3.60-5.00 [facility] Serum or plasma chloride coleman surement (moles/volume)Ordered By: Walter Montgomery on 12-13-2021 Chloride [Moles/Vol] 105 mmol/L 95-114 [facility] Serum or plasma non-glucuron idated bilirubin measurement (mass/volume)Ordered By: Walter Montgomery on 12-13-2021 Bilirubin.indirect [Mass/Vol] 0.5 mg/dL [facility] Serum or plasma potassium me asurement (moles/volume)Ordered By: Walter Montgomery on 12-13-2021 Potassium [Moles/Vol] 4.4 mmol/L 3.5-5.1 [facility] Serum or plasma sodium measu rement (moles/volume)Ordered By: Walter Montgomery on 12-13-2021 Sodium [Moles/Vol] 137 mmol/L 136-146 [facility] Serum or plasma total biliru bin measurement (mass/volume)Ordered By: Walter Montgomery on 12-13-2021 Bilirubin [Mass/Vol] 0.7 mg/dL 0.3-1.2 [facility] Serum or plasma total carbon dioxide measurement (moles/volume)Ordered By: Walter Montgomery on 12-13-2021 CO2 [Moles/Vol] 24.6 mmol/L 22.0-30.0 [facility] Serum or plasma urea nitroge n measurement (mass/volume)Ordered By: Walter Montgomery on 12-13-2021 Urea nitrogen [Mass/Vol] 12 mg/dL 9-23 [facility] Activated partial thrombopla stin time (aPTT) in platelet poor plasma by coagulation aOrdered By: Walter Montgomery on 12-12-2021 aPTT Coag (PPP) [Time] 30.0 s 25.1-36.5 [facility] Laboratory - CoagulationOrde red By: Walter Montgomery on 12-12-2021 PT Coag (PPP) [Time] 14.1 s 9.0-12.9 [facility] Platelet poor plasma interna tional normalized ratio (INR) by coagulation assay (relatOrdered By: Walter Montgomery on 12-12-2021 INR Coag (PPP) [Relative time] 1.3 {INR} [facility] Comment on above: INR Therapeutic Rang e A) Pre- and Peroperative OAT started two weeks before surgery. NOT HIP SURGERY: 1.5 - 2.5 HIP SURGERY: 2 - 3 B) Primary and secondary prevention of venous THROMBOSIS: 2 - 3 C) Active venous thrombosis, pulmonary embolism and prevention of recurrent venous thrombosis: 2 - 3 D) Prevention of arterial thromboembolism including patients with mechanical heart valves: 3 - 4.5 Serum or plasma alkaline yue sphatase measurement (enzymatic activity/volume)Ordered By: Walter Montgomery on 12-12-2021 ALP [Catalytic activity/Vol] 92 U/L 32-92 [facility] Serum or plasma aspartate am inotransferase measurement (enzymatic activity/volume)Ordered By: Walter Montgomery on 12-12-2021 AST [Catalytic activity/Vol] 22 U/L 10-42 [facility] Albumin [Mass/volume] in Ser um or PlasmaOrdered By: Shira Stephen on 12-11-2021 Albumin [Mass/Vol] 2.9 g/dL 3.2-5.5 [facility] Globulin Calc (S) [Mass/Vol] Ordered By: Shira Stephen on 12-11-2021 Globulin (S) [Mass/Vol] 3.0 g/dL [facility] No Panel InformationOrdered By: Shira Stephen on 12-11-2021 Bedside Glucose Comment Glu2: cleaned meter [facility] Protein [Mass/volume] in Ser um or PlasmaOrdered By: Shira Stephen on 12-11-2021 Protein [Mass/Vol] 5.9 g/dL 6.1-7.9 [facility] Serum or plasma alanine tucker otransferase measurement without P-5'-P (enzymatic activiOrdered By: Shira Stephen on 12-11-2021 ALT No additional P-5'-P [Catalytic activity/Vol] 16 U/L 10-60 [facility] Serum or plasma albumin/glob ulin mass ratioOrdered By: Shira Stephen on 12-11-2021 Albumin/Globulin [Mass ratio] 1.0 {ratio} [facility] Serum or plasma calcium steve urement (mass/volume)Ordered By: Shira Stephen on 12-11-2021 Calcium [Mass/Vol] 9.2 mg/dL 8.2-10.2 [facility] Serum or plasma glucose steve urement (mass/volume)Ordered By: Shira Stephen on 12-11-2021 Glucose [Mass/Vol] 204 mg/dL 70-100 [facility] Comment on above: ADA recommended refe rence range Random Glucose Reference Range is dependent on time and content of last meal. Glucose of more than 200 mg/dL in a nonstressed, ambulatory subject supports the diagnosis of Diabetes Mellitus. Urine culture routineOrdered By: Tray Randle on 12-11-2021 Bacteria identified Cx Nom (U) Escherichia coli [facility] Automated erythrocytes count in urine sediment (number/area)Ordered By: Tray Randle on 12-09-2021 RBC Auto (Urine sed) [#/Area] 5-9 [HPF] 0-4 [facility] Automated leukocytes count i n urine sediment (number/area)Ordered By: Tray Randle on 12-09-2021 WBC Auto (Urine sed) [#/Area] 50-100 [HPF] 0-4 [facility] Automated urine hyaline cast s count (number/volume)Ordered By: Tray Randle on 12-09-2021 Hyaline casts Auto (U) [#/Vol] None seen [LPF] 0-1 [facility] Bilirubin Test strip Ql (U)O rdered By: Tray Randle on 12-09-2021 Bilirubin Ql (U) Negative Negative [facility] COVID-19 Positive/NegativeOr dered By: Tray Randle on 12-09-2021 SARS-CoV-2 (COVID-19) N gene TEJINDER+probe Ql (Resp) Negative Negative [facility] Comment on above: Testing for SARS-CoV -2 by RT-PCR This test was developed and its performance characteristics determined by [employer] ([place]) and validated at the [facility]. This test has not been FDA cleared or approved. This test has been authorized by FDA under an Emergency Use Authorization (EUA). This test has been validated in accordance with the FDA's Guidance Document (Policy for Diagnostics Testing in Laboratories Certified to Perform High Complexity Testing under CLIA prior to Emergency Use Authorization for Coronavirus Disease-2019 during the Public Health Emergency) issued on July 30, 2019. This test is only authorized for the duration of time the declaration that circumstances exist justifying the authorization of the emergency use of in vitro diagnostic tests for detection of SARS-CoV-2 virus and/or diagnosis of COVID-19 infection under section 564(b)(1) of the Act, 21 U.S.C. 360bbb-3(b)(1), unless the authorization is terminated or revoked sooner. COVID-19 SOFIAOrdered By: Carolina Randle on 12-09-2021 SARS-CoV+SARS-CoV-2 (COVID-19) Ag IA.rapid Ql (Resp) Negative Negative [facility] Comment on above: This is a duplicate Molly SARS Antigen (ANUP) result to be used for statistical tracking purpose only. Casts typing in urine sedime nt by light microscopyOrdered By: Tray Randle on 12-09-2021 Casts LM Nom (Urine sed) None seen [LPF] None Seen [facility] Color Auto (U)Ordered By: Carolina Randle on 12-09-2021 Color (U) Yellow Yellow [facility] Ketones Auto test strip (U) [Mass/Vol]Ordered By: Tray Randle on 12-09-2021 Ketones (U) [Mass/Vol] Negative Negative [facility] Nitrite Test strip Ql (U)Ord ered By: Tray Randle on 12-09-2021 Nitrite Ql (U) Positive Negative [facility] No Panel InformationOrdered By: Tray Randle on 12-09-2021 SARS Antigen (LFIA) [facility] Protein Auto test strip (U) [Mass/Vol]Ordered By: Tray Randle on 12-09-2021 Protein (U) [Mass/Vol] Negative Negative [facility] Specific gravity Auto test s trip (U) [Rel density]Ordered By: Tray Rnadle on 12-09-2021 Specific gravity (U) [Rel density] 1.030 1.001-1.03 0 [facility] Squamous epithelial cells de tection in urine sediment by light microscopyOrdered By: Tray Randle on 12-09-2021 Epithelial cells.squamous LM Ql (Urine sed) 10-19 [HPF] 0-2 [facility] Troponin I.cardiac [Mass/vol ume] in Serum or Plasma by High sensitivity methodOrdered By: Shira Stephen on 12-09-2021 Troponin I.cardiac High sensitivity method [Mass/Vol] 5 pg/mL 0-15 [facility] Urine bacteria detection by automated methodOrdered By: Tray Randle on 12-09-2021 Bacteria Auto Ql (U) 4+ None Seen [facility] Urine clarity by refractomet ry automatedOrdered By: Tray Randle on 12-09-2021 Clarity Refractometry automated (U) Cloudy Clear [facility] Urine glucose measurement by automated test strip (mass/volume)Ordered By: Tray Randle on 12-09-2021 Glucose Auto test strip (U) [Mass/Vol] >=1000 mg/dL Normal [facility] Urine hemoglobin detection b y automated test stripOrdered By: Tray Randle on 12-09-2021 Hemoglobin Auto test strip Ql (U) Trace Negative [facility] Urine lactic acid measuremen tOrdered By: Shira Stephen on 12-09-2021 Lactate (U) [Moles/Vol] 1.7 mmol/L 0.5-2.2 [facility] Urine leukocyte esterase det ection by automated test stripOrdered By: Tray Randle on 12-09-2021 Leukocyte esterase Auto test strip Ql (U) 2+ Negative [facility] Urobilinogen Auto test strip (U) [Mass/Vol]Ordered By: Tray Randle on 12-09-2021 Urobilinogen (U) [Mass/Vol] Normal mg/dL Normal [facility] pH Auto test strip (U)Ordere d By: Tray Randle on 12-09-2021 pH (U) 5.5 [pH] 5.0-9.0 [facility] A1C HEMOGLOBINon 10-12-2021 HbA1c (Bld) [Mass fraction] 7.5 % [employer] Other HbA1c (Bld) [Mass fraction]o n 10-12-2021 A1C HEMOGLOBIN [employer] Other A1C HEMOGLOBINon 07-10-2021 HbA1c (Bld) [Mass fraction] 6 % [employer] Other Glucose - FINGER STICKon Glucose [Mass/Vol] 150 mg/dL [employer] Other HbA1c (Bld) [Mass fraction]o n 07-10-2021 A1C HEMOGLOBIN [employer] Other A1C HEMOGLOBINon 03-27-2021 HbA1c (Bld) [Mass fraction] 6.9 % [employer] Other Glucose - FINGER STICKon Glucose [Mass/Vol] 244 mg/dL [employer] Other HbA1c (Bld) [Mass fraction]o n 03-27-2021 A1C HEMOGLOBIN [employer] Other PROGRESSon 02-12-2019 PROGRESS HNO ID: [id number] Author: Clyde Hall Service: ? Author Type: Nurse Practitioner Type: Progress Notes Filed: 02/12/2019 12:57 PM Note Text: Kerry presents for post op follow up. She is a 63 year old female who has a past medical history of Diabetes (HCC), Fibromyalgia, Hypercholesteremia, Hypertension, Smoker, and Vulvar intraepithelial neoplasia (SONNY) grade 3. She has a past surgical history that includes hysterectomy hx; tonsillectomy hx; carpal tunnel (Right, 2018); and esophageal dilation (ag). PATHOLOGY: 10/07/2018 - VULVA CYTOLOGY LGSIL 10/21/2018 VULVA BIOPSY High grade vulvar intraepithelial neoplasia, SONNY III/CIS VAGINAL BIOPSY Focal kollocytolic atypia. No conclusive dysplasia changes are noted. SURGERY: 01/01/2019: wide local excision FINAL DIAGNOSIS Vulva, excision - High-grade squamous intraepithelial lesion (SONNY-3), classic type, with positive mucosal margins; see comment. AJP/lbk 01/05/2019 COMMENT Block A1 and A4 show positive mucosal margins for SONNY-3, which corresponds to the 12 o'clock margin (A1) and approximately the 10 to 11 o'clock margin (A4, green ink). PRIOR DYSPLASIA HISTORY: 12/2016: LGSIL 12/2016: Colpo - VAIN I 06/2017: ASCUS, +HPV 03/2018: ASCUS, -HPV 09/2018: Vulva and Vaginal LGSIL HEALTH MAINTENANCE: Last pap: 09/2018 - vaginal LSIL Last mammogram: Last colonoscopy: SUBJECTIVE/INTERVAL HISTORY: Vulvar feels better, feels healing well No constipation Little to no drainage No fever/chills OBJECTIVE: BP 124/67 Pulse 99 Temp 37.1 ?C (98.7 ?F) (Oral) Wt 93.3 kg (205 lb 11.2 oz) BMI 32.22 kg/m? GEN: NAD LUNG: Normal efforts PELVIC: External genitalia, anus and urethral meatus are examined, surgical site is healing well with, area of healing noted vaginal introitus 6pm still. . No evidence of infection. 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 Wound is healing well. - cont post op restrictions, no sexual intercourse still given evidence of healing still. - RTC to see Nov 1 at [facility], to ensure complete healing, and further discuss plan of care re pathology results. - call office prn for issues/concerns Clyde Hall APRN.[facility] Office [facility] (GYNML) -------- KERRY GAY ([id number]) 1955 F Date Time Provider Department 02/11/19 2:30 PM CLYDE HALL ([employer]I B[employer]ING [employer]TER AND REPAIRER) GYNML During your visit today, we recorded the following information about you: Temperature Pulse Blood pressure Weight 98.7 degrees 99/minute 124/67 93.3 kg Clyde Hall APRN.[employer]PA[employer]ER 02/12/2019 12:57 PM Signed Kerry presents for post op follow up. She is a 63 year old female who has a past medical history of Diabetes (HCC), Fibromyalgia, Hypercholesteremia, Hypertension, Smoker, and Vulvar intraepithelial neoplasia (SONNY) grade 3. She has a past surgical history that includes hysterectomy hx; tonsillectomy hx; carpal tunnel (Right, 2018); and esophageal dilation (ag). PATHOLOGY: 10/07/2018 - VULVA CYTOLOGY LGSIL 10/21/2018 VULVA BIOPSY High grade vulvar intraepithelial neoplasia, SONNY III/CIS VAGINAL BIOPSY Focal kollocytolic atypia. No conclusive dysplasia changes are noted. SURGERY: 01/01/2019: wide local excision FINAL DIAGNOSIS Vulva, excision - High-grade squamous intraepithelial lesion (SONNY-3), classic type, with positive mucosal margins; see comment. AJP/lbk 01/05/2019 COMMENT Block A1 and A4 show positive mucosal margins for SONNY-3, which corresponds to the 12 o'clock margin (A1) and approximately the 10 to 11 o'clock margin (A4, green ink). PRIOR DYSPLASIA HISTORY: 12/2016: LGSIL 12/2016: Colpo - VAIN I 06/2017: ASCUS, +HPV 03/2018: ASCUS, -HPV 09/2018: Vulva and Vaginal LGSIL HEALTH MAINTENANCE: Last pap: 09/2018 - vaginal LSIL Last mammogram: Last colonoscopy: SUBJECTIVE/INTERVAL HISTORY: Vulvar feels better, feels healing well No constipation Little to no drainage No fever/chills OBJECTIVE: BP 124/67 Pulse 99 Temp 37.1 ?C (98.7 ?F) (Oral) Wt 93.3 kg (205 lb 11.2 oz) BMI 32.22 kg/m? GEN: NAD LUNG: Normal efforts PELVIC: External genitalia, anus and urethral meatus are examined, surgical site is healing well with, area of healing noted vaginal introitus 6pm still. . No evidence of infection. 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 Wound is healing well. - cont post op restrictions, no sexual intercourse still given evidence of healing still. - RTC to see Nov 1 at [facility], to ensure complete healing, and further discuss plan of care re pathology results. - call office prn for issues/concerns Clyde Hall APRN.JAYSON Referring Provider: THEO JOAQUIN [[id number]] Allergies As of Date: 02/11/2019 Noted Allergy Reaction SULFA (SULFONAMIDE ANTIBIOTICS) 2018 11 - Vomiting Date Reviewed: 02/11/2019 Reviewed by: Sierra Lan - Fully Assessed Reason for Visit: Establish Care [42] Primary Visit Diagnosis:SONNY III (vulvar intraepithelial neoplasia III) [D07.1] Other Visit Diagnosis:Post-operative state [Z98.890] Prescriptions as of 02/11/2019 Sig: POLYETHYLENE GLYCOL 3350 17 G* Take 17 g by mouth once daily. DOCUSATE SODIUM 100 MG CAPSULE Take 1 capsule by mouth twice* IBUPROFEN 600 MG TABLET Take 1 tablet by mouth every * ACETAMINOPHEN 325 MG TABLET Take 2 tablets by mouth every* INSULIN LISPRO SLIDING SCALE 1 Inject 1-5 Units subcutaneous* CYANOCOBALAMIN (VIT B-12) 1,0* FOLIC ACID 1 MG TABLET LISINOPRIL 10 MG TABLET METFORMIN 500 MG TABLET METOCLOPRAMIDE 10 MG TABLET NORTRIPTYLINE 50 MG CAPSULE OMEPRAZOLE 20 MG CAPSULE,CLIFFORD* PIOGLITAZONE 15 MG TABLET SIMVASTATIN 20 MG TABLET TEMAZEPAM 30 MG CAPSULE Take 30 mg by mouth at bedtim* TERCONAZOLE 0.4 % VAGINAL CRE* insert 1 applicatorful vagina* Problem List As Of Date 02/11/2019 Noted Resolved Hypertension [I10] More... Diabetes (HCC) [E11.9] More... Hypercholesteremia [E78.00] More... Smoker [F17.200] More... Encounter Status:Closed by CLYDE HALL CNP on 02/12/19 [facility] CNOVon 01-21-2019 CNOV Office Visit (GYNML) -------- KERRY GAY ([id number]) 1955 F Date Time Provider Department 01/21/19 10:45 AM THEO JOAQUIN GYNDOMINIK During your visit today, we recorded the following information about you: Temperature Pulse Blood pressure Weight 98.6 degrees 94/minute 111/52 91.4 kg Theo Joaquin MD 01/22/2019 2:06 PM Signed Gynecologic Oncology [facility] Re: eKrry Gay CCF#:[id number] 01/21/2019 Dear Nereida Castro: Kerry presents for post op follow up. She is a 63 year old female who has a past medical history of Diabetes (HCC), Fibromyalgia, Hypercholesteremia, Hypertension, Smoker, and Vulvar intraepithelial neoplasia (SONNY) grade 3. She has a past surgical history that includes hysterectomy hx; tonsillectomy hx; carpal tunnel (Right, 2018); and esophageal dilation (ag). She presents today for evaluation and management of SONNY III/CIS/ post op wound check States while straining to have BM Yesterday, wound opened up . PATHOLOGY: 10/07/2018 - VULVA CYTOLOGY LGSIL 10/21/2018 VULVA BIOPSY High grade vulvar intraepithelial neoplasia, SONNY III/CIS VAGINAL BIOPSY Focal kollocytolic atypia. No conclusive dysplasia changes are noted. SURGERY: 01/01/2019: wide local excision FINAL DIAGNOSIS Vulva, excision - High-grade squamous intraepithelial lesion (SONNY-3), classic type, with positive mucosal margins; see comment. AJP/lbk 01/05/2019 COMMENT Block A1 and A4 show positive mucosal margins for SONNY-3, which corresponds to the 12 o'clock margin (A1) and approximately the 10 to 11 o'clock margin (A4, green ink). PRIOR DYSPLASIA HISTORY: 12/2016: LGSIL 12/2016: Colpo - VAIN I 06/2017: ASCUS, +HPV 03/2018: ASCUS, -HPV 09/2018: Vulva and Vaginal LGSIL HEALTH MAINTENANCE: Last pap: 09/2018 - vaginal LSIL Last mammogram: Last colonoscopy: SUBJECTIVE/INTERVAL HISTORY: Vulvar feels better No constipation Some intermittent drainage still No fever/chills OBJECTIVE: BP 111/52 Pulse 94 Temp 37 ?C (98.6 ?F) (Oral) Wt 91.4 kg (201 lb 8 oz) BMI 31.56 kg/m? GEN: NAD LUNG: Normal efforts PELVIC: External genitalia, anus and urethral meatus are examined, surgical site is healing well with slight superficial separation. No evidence of infection. ASSESSMENT: 63 yr old woman with VIN3 s/p WLE PLAN: - Overall doing well. No evidence of infection wit superficial slight separation - RTC in 2 weeks and 6 weeks Theo Joaquin MD A letter and a copy of this office note were sent to: Nereida Castro MD (DrC) [facility] [address] [address] CC: Darrell Yoder MD (PCP) Referring Provider: THEO JOAQUIN [[id number]] Allergies As of Date: 01/21/2019 Noted Allergy Reaction SULFA (SULFONAMIDE ANTIBIOTICS) 2018 11 - Vomiting Date Reviewed: 01/21/2019 Reviewed by: Sierra Lan - Fully Assessed Reason for Visit: Post Op [174] Primary Visit Diagnosis:Vulvar intraepithelial neoplasia (SONNY) grade 3 [D07.1] Prescriptions as of 01/21/2019 Sig: POLYETHYLENE GLYCOL 3350 17 G* Take 17 g by mouth once daily. DOCUSATE SODIUM 100 MG CAPSULE Take 1 capsule by mouth twice* IBUPROFEN 600 MG TABLET Take 1 tablet by mouth every * ACETAMINOPHEN 325 MG TABLET Take 2 tablets by mouth every* INSULIN LISPRO SLIDING SCALE 1 Inject 1-5 Units subcutaneous* CYANOCOBALAMIN (VIT B-12) 1,0* FOLIC ACID 1 MG TABLET LISINOPRIL 10 MG TABLET METFORMIN 500 MG TABLET METOCLOPRAMIDE 10 MG TABLET NORTRIPTYLINE 50 MG CAPSULE OMEPRAZOLE 20 MG CAPSULE,CLIFFORD* PIOGLITAZONE 15 MG TABLET SIMVASTATIN 20 MG TABLET TEMAZEPAM 30 MG CAPSULE Take 30 mg by mouth at bedtim* TERCONAZOLE 0.4 % VAGINAL CRE* insert 1 applicatorful vagina* Problem List As Of Date 01/21/2019 Noted Resolved Hypertension [I10] More... Diabetes (HCC) [E11.9] More... Hypercholesteremia [E78.00] More... Smoker [F17.200] More... Encounter Status:Closed by THEO JOAQUIN MD on 01/22/19 [facility] PROGRESSon 01-08-2019 PROGRESS HNO ID: [id number] Author: Theo Joaquin Service: ? Author Type: Physician Type: Progress Notes Filed: 01/22/2019 2:06 PM Note Text: Gynecologic Oncology [facility] Re: Kerry Gay CCF#:[id number] 01/21/2019 Dear Nereida Castro: Kerry presents for post op follow up. She is a 63 year old female who has a past medical history of Diabetes (HCC), Fibromyalgia, Hypercholesteremia, Hypertension, Smoker, and Vulvar intraepithelial neoplasia (SONNY) grade 3. She has a past surgical history that includes hysterectomy hx; tonsillectomy hx; carpal tunnel (Right, 2018); and esophageal dilation (ag). She presents today for evaluation and management of SONNY III/CIS/ post op wound check States while straining to have BM Yesterday, wound opened up . PATHOLOGY: 10/07/2018 - VULVA CYTOLOGY LGSIL 10/21/2018 VULVA BIOPSY High grade vulvar intraepithelial neoplasia, SONNY III/CIS VAGINAL BIOPSY Focal kollocytolic atypia. No conclusive dysplasia changes are noted. SURGERY: 01/01/2019: wide local excision FINAL DIAGNOSIS Vulva, excision - High-grade squamous intraepithelial lesion (SONNY-3), classic type, with positive mucosal margins; see comment. AJP/lbk 01/05/2019 COMMENT Block A1 and A4 show positive mucosal margins for SONNY-3, which corresponds to the 12 o'clock margin (A1) and approximately the 10 to 11 o'clock margin (A4, green ink). PRIOR DYSPLASIA HISTORY: 12/2016: LGSIL 12/2016: Colpo - VAIN I 06/2017: ASCUS, +HPV 03/2018: ASCUS, -HPV 09/2018: Vulva and Vaginal LGSIL HEALTH MAINTENANCE: Last pap: 09/2018 - vaginal LSIL Last mammogram: Last colonoscopy: SUBJECTIVE/INTERVAL HISTORY: Vulvar feels better No constipation Some intermittent drainage still No fever/chills OBJECTIVE: BP 111/52 Pulse 94 Temp 37 ?C (98.6 ?F) (Oral) Wt 91.4 kg (201 lb 8 oz) BMI 31.56 kg/m? GEN: NAD LUNG: Normal efforts PELVIC: External genitalia, anus and urethral meatus are examined, surgical site is healing well with slight superficial separation. No evidence of infection. ASSESSMENT: 63 yr old woman with VIN3 s/p WLE PLAN: - Overall doing well. No evidence of infection wit superficial slight separation - RTC in 2 weeks and 6 weeks Theo Joaquin MD A letter and a copy of this office note were sent to: Nereida Castro MD (DrC) [facility] [address] [address] CC: Darrell Yoder MD (PCP) [facility] CNOVon 01-07-2019 CNOV Office Visit (GYNML) -------- VICTOR HUGO,KERRY ([id number]) 1955 F Date Time Provider Department 01/07/19 8:30 AM THEO JOAQUIN GYNML During your visit today, we recorded the following information about you: Temperature Pulse Blood pressure Weight 98.4 degrees 124/minute 103/53 90.2 kg Theo Joaquin MD 01/10/2019 11:17 PM Signed Gynecologic Oncology [facility] Re: Kerry Gay CCF#:[id number] 01/07/2019 Dear Nereida Castro: Kerry presents for post op follow up. She is a 63 year old female who has a past medical history of Diabetes (HCC), Fibromyalgia, Hypercholesteremia, Hypertension, Smoker, and Vulvar intraepithelial neoplasia (SONNY) grade 3. She has a past surgical history that includes hysterectomy hx; tonsillectomy hx; carpal tunnel (Right, 2018); and esophageal dilation (ag). She presents today for evaluation and management of SONNY III/CIS/ post op wound check States while straining to have BM Yesterday, wound opened up . PATHOLOGY: 10/07/2018 - VULVA CYTOLOGY LGSIL 10/21/2018 VULVA BIOPSY High grade vulvar intraepithelial neoplasia, SONNY III/CIS VAGINAL BIOPSY Focal kollocytolic atypia. No conclusive dysplasia changes are noted. SURGERY: 01/01/2019: wide local excision FINAL DIAGNOSIS Vulva, excision - High-grade squamous intraepithelial lesion (SONNY-3), classic type, with positive mucosal margins; see comment. AJP/lbk 01/05/2019 COMMENT Block A1 and A4 show positive mucosal margins for SONNY-3, which corresponds to the 12 o'clock margin (A1) and approximately the 10 to 11 o'clock margin (A4, green ink). PRIOR DYSPLASIA HISTORY: 12/2016: LGSIL 12/2016: Colpo - VAIN I 06/2017: ASCUS, +HPV 03/2018: ASCUS, -HPV 09/2018: Vulva and Vaginal LGSIL HEALTH MAINTENANCE: Last pap: 09/2018 - vaginal LSIL Last mammogram: Last colonoscopy: SUBJECTIVE/INTERVAL HISTORY: Some foul smelling discharge, light bleeding no fever chills Using tylenol for pain w little relief Using sitz bath OBJECTIVE: BP 103/53 Pulse (!) 124 Temp 36.9 ?C (98.4 ?F) (Oral) Wt 90.2 kg (198 lb 12.8 oz) BMI 31.14 kg/m? GEN: NAD LUNG: Normal efforts PELVIC: External genitalia, anus and urethral meatus are examined, surgical site is healing well with slight superficial separation. No evidence of infection. 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 - RTC in 2 weeks Total face to face time 15 minutes and more that 50% spent on counseling the patient and coordinating her care. Thank you for referring her for gynecologic oncology consultation. I will be in touch with you regarding her findings. 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 DOCUSATE SODIUM 100 MG CAPSULE Take 1 capsule by mouth twice* IBUPROFEN 600 MG TABLET Take 1 tablet by mouth every * ACETAMINOPHEN 325 MG TABLET Take 2 tablets by mouth every* INSULIN LISPRO SLIDING SCALE 1 Inject 1-5 Units subcutaneous* CYANOCOBALAMIN (VIT B-12) 1,0* FOLIC ACID 1 MG TABLET LISINOPRIL 10 MG TABLET METFORMIN 500 MG TABLET METOCLOPRAMIDE 10 MG TABLET NORTRIPTYLINE 50 MG CAPSULE OMEPRAZOLE 20 MG CAPSULE,CLIFFORD* PIOGLITAZONE 15 MG TABLET SIMVASTATIN 20 MG TABLET TEMAZEPAM 30 MG CAPSULE Take 30 mg by mouth at bedtim* TERCONAZOLE 0.4 % VAGINAL CRE* insert 1 applicatorful vagina* Problem List As Of Date 01/07/2019 Noted Resolved Hypertension [I10] More... Diabetes (HCC) [E11.9] More... Hypercholesteremia [E78.00] More... Smoker [F17.200] More... Prescriptions ordered this encounter Disp Refills Start End POLYETHYLENE GLYCOL 3350 17 GRAM/DOS* 235 g 0 01/07/2019 Class: Print RX Route: ORAL Sig: Take 17 g by mouth once daily. Encounter Status:Closed by THEO JOAQUIN MD on 01/10/19 [facility] 01-06-2019 [facility] ([facility] -------- KERRY GAY ([id number]) 1955 F Date Time Provider Department 01/06/19 SHANTEL REYNOSO (RN) GYN During your visit today, we recorded the following information about you: Shantel Reynoso RN, RN 01/06/2019 3:04 PM Signed Patient called office reporting last 01/04/2019 she was straining a little with BM and thinks some of the vulvar stitches have come out. Scant blood noted on pad, denies fever, foul drainage or odor. Reports keeping area clean after bathroom use Taking Colace bid, encouraged drinking plenty of fluids, eating high fiber foods and take Miralax if stools getting to hard. She states they are soft now. Appointment made with Dr. Joaquin 01/07 @ 9045 for wound check Patient verbalized understanding and agrees to plan Shantel Reynoso RN Allergies As of Date: 01/06/2019 Noted Allergy Reaction SULFA (SULFONAMIDE ANTIBIOTICS) 2018 11 - Vomiting Date Reviewed: 01/01/2019 Reviewed by: Milly Fernandez (Rn) BRENDA Murry - Fully Assessed Reason for Visit: Vulvar stitches [Other] Prescriptions as of 01/06/2019 Sig: DOCUSATE SODIUM 100 MG CAPSULE Take 1 capsule by mouth twice* IBUPROFEN 600 MG TABLET Take 1 tablet by mouth every * ACETAMINOPHEN 325 MG TABLET Take 2 tablets by mouth every* INSULIN LISPRO SLIDING SCALE 1 Inject 1-5 Units subcutaneous* CYANOCOBALAMIN (VIT B-12) 1,0* FOLIC ACID 1 MG TABLET LISINOPRIL 10 MG TABLET METFORMIN 500 MG TABLET METOCLOPRAMIDE 10 MG TABLET NORTRIPTYLINE 50 MG CAPSULE OMEPRAZOLE 20 MG CAPSULE,CLIFFORD* PIOGLITAZONE 15 MG TABLET SIMVASTATIN 20 MG TABLET TEMAZEPAM 30 MG CAPSULE Take 30 mg by mouth at bedtim* TERCONAZOLE 0.4 % VAGINAL CRE* insert 1 applicatorful vagina* Problem List As Of Date 01/06/2019 Noted Resolved Hypertension [I10] More... Diabetes (HCC) [E11.9] More... Hypercholesteremia [E78.00] More... Smoker [F17.200] More... Encounter Status:Closed by SHANTEL REYNOSO on 01/06/19 [facility] PROGRESSon 01-06-2019 PROGRESS HNO ID: [id number] Author: Theo Joaquin Service: ? Author Type: Physician Type: Progress Notes Filed: 01/10/2019 11:17 PM Note Text: Gynecologic Oncology [facility] Re: Kerry Hollyaton CCF#:[id number] 01/07/2019 Dear Nereida Castro: Kerry presents for post op follow up. She is a 63 year old female who has a past medical history of Diabetes (HCC), Fibromyalgia, Hypercholesteremia, Hypertension, Smoker, and Vulvar intraepithelial neoplasia (SONNY) grade 3. She has a past surgical history that includes hysterectomy hx; tonsillectomy hx; carpal tunnel (Right, 2018); and esophageal dilation (ag). She presents today for evaluation and management of SONNY III/CIS/ post op wound check States while straining to have BM Yesterday, wound opened up . PATHOLOGY: 10/07/2018 - VULVA CYTOLOGY LGSIL 10/21/2018 VULVA BIOPSY High grade vulvar intraepithelial neoplasia, SONNY III/CIS VAGINAL BIOPSY Focal kollocytolic atypia. No conclusive dysplasia changes are noted. SURGERY: 01/01/2019: wide local excision FINAL DIAGNOSIS Vulva, excision - High-grade squamous intraepithelial lesion (SONNY-3), classic type, with positive mucosal margins; see comment. AJP/lbk 01/05/2019 COMMENT Block A1 and A4 show positive mucosal margins for SONNY-3, which corresponds to the 12 o'clock margin (A1) and approximately the 10 to 11 o'clock margin (A4, green ink). PRIOR DYSPLASIA HISTORY: 12/2016: LGSIL 12/2016: Colpo - VAIN I 06/2017: ASCUS, +HPV 03/2018: ASCUS, -HPV 09/2018: Vulva and Vaginal LGSIL HEALTH MAINTENANCE: Last pap: 09/2018 - vaginal LSIL Last mammogram: Last colonoscopy: SUBJECTIVE/INTERVAL HISTORY: Some foul smelling discharge, light bleeding no fever chills Using tylenol for pain w little relief Using sitz bath OBJECTIVE: BP 103/53 Pulse (!) 124 Temp 36.9 ?C (98.4 ?F) (Oral) Wt 90.2 kg (198 lb 12.8 oz) BMI 31.14 kg/m? GEN: NAD LUNG: Normal efforts PELVIC: External genitalia, anus and urethral meatus are examined, surgical site is healing well with slight superficial separation. No evidence of infection. 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 - RTC in 2 weeks Total face to face time 15 minutes and more that 50% spent on counseling the patient and coordinating her care. Thank you for referring her for gynecologic oncology consultation. I will be in touch with you regarding her findings. Sincerely, Theo Joaquin MD A letter and a copy of this office note were sent to: Nereida Castro MD (DrC) [address] [place] [phone] CC: Darrell Yoder MD (PCP) [facility] ANES Yousuf 01-01-2019 ANES POST HNO ID: [id number] Author: Katharina Durham Service: Anesthesiology Author Type: Anesthesiologist Type: Anesthesia PostOp Filed: 01/01/2019 9:45 AM Note Text: POST ANESTHESIA EVALUATION NOTE SERVICE DATE: 01/01/2019 SERVICE TIME: 9:45 AM : 1955 Vitals: 01/01/19 0735 01/01/19 0844 01/01/19 0915 01/01/19 0940 Temp: 36.3 ?C (97.3 ?F) 36 ?C (96.8 ?F) 36.3 ?C (97.3 ?F) 36.2 ?C (97.2 ?F) 01/01/19 0900 01/01/19 0915 01/01/19 0929 01/01/19 0940 BP: 116/52 107/50 115/53 109/57 01/01/19 0902 01/01/19 0915 01/01/19 0929 01/01/19 0940 Pulse: 81 82 80 72 01/01/19 0902 01/01/19 0915 01/01/19 0929 01/01/19 0940 Resp: 22 22 14 16 01/01/19 0902 01/01/19 0915 01/01/19 0929 01/01/19 0940 SpO2: 98% 96% 96% 97% Validated Vital Signs: Yes POST ANES STATUS: No apparent anesthetic complications. The patient is appropriately hydrated with stable respiratory and cardiovascular status. Patient has safe and adequate airway control. The patient has appropriate pain relief and no significant post operative nausea or vomiting. The patient has achieved baseline mental status. Intra-Operative Events: No Significant Anesthesia Events Further assessment by Anesthesia Service: None Other Remarks: SIGNATURE: Katharina Durham MD PATIENT NAME: Kerry Gay DATE: January 01, 2019 TIME: 9:45 AM PAGER/CONTACT #: [facility] ANES PREOPon 01-01-2019 ANES PREOP HNO ID: [id number] Author: Katharina Durham Service: Anesthesiology Author Type: Anesthesiologist Type: Anesthesia PreOp Filed: 01/01/2019 7:37 AM Note Text: REGIONAL ANESTHESIOLOGY DAY OF SURGERY NOTE PATIENT NAME: Kerry Gay : 1955 Procedure(s) (LRB): COLPOSCOPY OF THE ENTIRE VAGINA W/CERVIX (N/A) LASER VULVA SIMPLE ~ CO2 (N/A) VULVECTOMY PARTIAL SIMPLE (Pending) Surgeon(s): Theo Joaquin Estimated body mass index is 31.32 kg/m? as calculated from the following: Height as of 12/17/18: 170.2 cm (5' 7 ). Weight as of 12/17/18: 90.7 kg (200 lb). ASA Class: 3 Adequate NPO status: Yes Allergies: ALLERGIES Allergen Reactions - Sulfa (Sulfonamide * Vomiting Airway Assessment: MP 2; Neck ROM: Full ROM without neurologic symptoms; Airway Evaluation: No significant abnormalities Dentition: Complete upper dentures Complete lower dentures Symptoms of Sleep Apnea: Probable but not formally diagnosed Most recent lab results: Hemoglobin 16.0 12/17/2018 Hematocrit 51.2 12/17/2018 Potassium 4.4 12/17/2018 Platelet Count 221 12/17/2018 Creatinine 0.73 12/17/2018 EKG: normal EKG, normal sinus rhythm Vitals: See nurse chart Previous Anesthesia: No history of adverse event Family history of anesthetic problems: None Additional Physical Exam: Lungs: Lungs clear to auscultation. Good diaphragmatic excursion. Cardiac: Normal S1 and S2; no rubs, no murmurs and no gallops Additional pertinent findings: N/A Other Medical Problems/ Important Considerations: Denies chest pain and SOB with exertion. RA Polyneuropathy. Paraesthesia of finger and toe tips. Not changed by change the position of her head Hypertension Type II DM GERD, controlled with medications Chronic Beta Debbie medication administered within 24 hours: N/A Anesthetic risks, benefits, alternatives, personnel and consent discussed: Yes Patient agrees to proceed: Yes Blood Products: Will accept Blood/Blood Products Anesthetic Plan: General LMA; Standard ASA Monitors Pain Management Plan: ROOT Protocol [facility] Chart Review ACTIVE PROBLEM LIST Hypertension Diabetes (Hcc) Hypercholesteremia Smoker PAST MEDICAL HISTORY Diagnosis Date - Diabetes (HCC) - Fibromyalgia - Hypercholesteremia - Hypertension - Smoker - Vulvar intraepithelial neoplasia (SONNY) grade 3 PAST SURGICAL HISTORY Procedure Laterality Date - CARPAL TUNNEL Right 2017 - ESOPHAGEAL DILATION (AG) - HYSTERECTOMY HX - TONSILLECTOMY HX FAMILY HISTORY Problem Relation Age of Onset - Heart disease Mother - Hypertension Mother - Stroke Mother - Stroke Father - Heart disease Father - Cancer Father Social History: Social History Tobacco Use - Smoking status: Current Every Day Smoker Packs/day: 1.00 Years: 40.00 Pack years: 40.00 Types: Cigarettes Start date: 1974 - Smokeless tobacco: Never Used Substance Use Topics - Alcohol use: Not Currently - Drug use: Never Comment: denies tx for drug/alcohol abuse in the past. No current facility-administered medications on file prior to encounter. Current Outpatient Medications on File Prior to Encounter: cyanocobalamin (VITAMIN B-12) 1,000 mcg tab folic acid 1 mg tablet lisinopril (ZESTRIL, PRINIVIL) 10 mg tablet metFORMIN (GLUCOPHAGE) 500 mg tablet metoclopramide HCl (REGLAN) 10 mg tablet nortriptyline (PAMELOR) 50 mg capsule omeprazole (PRILOSEC) 20 mg capsule pioglitazone (ACTOS) 15 mg tablet simvastatin (ZOCOR) 20 mg tablet temazepam (RESTORIL) 30 mg cap Take 30 mg by mouth at bedtime as needed. terconazole (TERAZOL 7) 0.4 % vaginal cream insert 1 applicatorful vaginally once daily for 7 days Inpatient medications reviewed in [facility]. I have interviewed and examined the patient. I have reviewed the medical record and/or the pre-anesthesia evaluation, pertinent labs, and test results. Significant changes in the patient's condition since the History and Physical, not otherwise documented in primary service progress notes: No This contains updated information obtained within 48 hours of Surgery/Procedure. SIGNATURE: Katharina Durham MD PATIENT NAME: Kerry Gay DATE: January 01, 2019 TIME: 7:35 AM PAGER/CONTACT #: Diane [facility] HISTORY PHYSICALon 9 HISTORY PHYSICAL HNO ID: [id number] Author: Petty Shahid (Fel) Service: Gynecology Oncology Author Type: Fellow Type: HANDP Filed: 01/01/2019 7:16 AM Note Text: UPDATED HISTORY AND PHYSICAL EXAMINATION SERVICE DATE: 01/01/2019 SERVICE TIME: 7:16 AM PHYSICAL EXAM MUST BE COMPLETED ON ADMISSION The History and Physical (completed in the past 30 days) has been reviewed and the patient has been examined. The contents accurately reflect the patient's condition with the following additions or revisions since the HANDP was completed. Examination indicates no changes. This HANDP can be found in the Electronic Medical Record dated 12/17/18. SIGNATURE: Petty Shahid MD PATIENT NAME: Kerry Gay DATE: January 01, 2019 TIME: 7:16 AM PAGER: [facility] OPERATIVE NOon 01-01-2019 OPERATIVE NO HNO ID: [id number] Author: Theo Joaquin Service: Gynecology Oncology Author Type: Physician Type: Operative Report Filed: 01/17/2019 7:16 PM Note Text: OPERATIVE/PROCEDURE REPORT LOG ID: [id number] SURGERY/PROCEDURE DATE: 01/01/2019 INCISION/PROCEDURE START TIME: 8:11 AM INCISION CLOSE/PROCEDURE END TIME: 8:34 AM SURGEON(S)/PROCEDURALIST (S) AND REGISTERED NURSE BONE MARROW TRANSPLANT(S): Surgeon(s) and Role: * Thoe Joaquin - Primary * Petty Shahid (Fel) - Fellow No Additional Staff OPERATIVE PROCEDURE: Vulvar wide local excision ? ? ANESTHESIA:?General ? ? FINDINGS:?ite lesion to midline perineal area about 4 x 3 cm that was excised. ? Procedure Details:? The patient was taken to the operating room and was placed on the operating room table, general anesthesia with endotracheal intubation was initiated, she was then placed in dorsal lithotomy position, attention was made to avoid any pressure injuries, I evaluated the ankle and hip joints bilaterally after positioning the lower extremity, there was adequate mobility of the joints and no evidence of pressure on the femoral or common peroneal nerves. She was then prepped and draped in a normal sterile fashion then a de la garza catheter was inserted.? ? An elliptical incision was made with scalpel?around the lesion (4x3 cm), the cautery was used to incise the subcutaneous tissue. We made sure that there was at least?1-1.5?cm?margin around the lesion. This specimen was then removed and was sent to the pathology. Then the?defect was approximated in the sc tissue using 3-0 vicryl. The closure of vulvar defect was then achieved using interrupted stitches of 2-0 Vicryls in vertical matrice fashion.? Hemostasis was excellent. Patient tolerated the procedure well. All counts were correct x 2 by the end of the case ? Pre-Op/Pre-Procedure Diagnosis:??Vulvar Dysplasia? ? Post-Op/Post-Procedure Diagnosis:?Same?? ? Estimated Blood Loss:?10?mls ? Specimens:? Vulvar specimen? ? Implantable Devices:?None ? Drains:?None? ? Complications: None ? I performed the procedure with assistance SIGNATURE: Theo Joaquin MD PATIENT NAME: Kerry Gay DATE: January 03, 2019 TIME: 2:24 PM PAGER/CONTACT #: [facility] PT EDon 01-01-2019 PT ED HNO ID: [id number] Author: Patty Bernal RN Service: Nursing Author Type: Registered Nurse Type: Patient Education Filed: 01/01/2019 9:59 AM Note Text: PATIENT EDUCATION TOPIC: PROCEDURE / SURGERY: Post-op Teaching: dr Joaquin's post op imnstructions PATIENT NAME: Kerry Gay PATIENT LOCATION: [facility] OR POOL/FV OR POOL READINESS TO LEARN COGNITIVE ABILITY: Alert and oriented MOTIVATION TO LEARN: Interested FAMILY SUPPORT: High - Very involved in pt care INSTRUCTION PROVIDED TO: Patient and family member and fiancee PATIENT LEARNS BEST BY: Individual Instruction Written Instruction - Hand-outs Verbal Instruction FACTORS AFFECTING LEARNING: None PHYSICAL LIMITATIONS AFFECTING LEARNING: None LEARNING RESPONSE DIAGNOSIS: ADULT: PATIENT/FAMILY RESPONSE: Verbalizes understanding of: POST-PROCEDURE INSTRUCTIONS-Correct actions to take to reduce post procedure complications METHOD OF INSTRUCTION: Individual instruction Written instruction - handouts Verbal instruction FOLLOW-UP PLAN: with Dr Joaquin as scheduled SUPPLEMENTAL MATERIAL PROVIDED TO PATIENT: flavia st Electronically Signed By: Patty Bernal RN [facility] PT ED HNO ID: [id number] Author: Milly Murry RN Service: Nursing Author Type: Registered Nurse Type: Patient Education Filed: 01/01/2019 9:25 AM Note Text: PATIENT EDUCATION TOPIC: PROCEDURE / SURGERY: Post-op Teaching: Symptom Management PATIENT NAME: Kerry Gay PATIENT LOCATION: [facility] POOL/[facility] OR POOL READINESS TO LEARN COGNITIVE ABILITY: Alert and oriented MOTIVATION TO LEARN: Eager FAMILY SUPPORT: High - Very involved in pt care INSTRUCTION PROVIDED TO: Patient and family member PATIENT LEARNS BEST BY: Verbal Instruction FACTORS AFFECTING LEARNING: None PHYSICAL LIMITATIONS AFFECTING LEARNING: None LEARNING RESPONSE DIAGNOSIS: ADULT: PATIENT/FAMILY RESPONSE: Verbalizes understanding of: POST-OPERATIVE INSTRUCTIONS-Correct actions to take to reduce postoperative complications METHOD OF INSTRUCTION: Individual instruction FOLLOW-UP PLAN: Patient instructed to call with any further issues INSTRUCTIONAL AIDS USED: NA SUPPLEMENTAL MATERIAL PROVIDED TO PATIENT: None REFERRAL (RECOMMENDATION): None Electronically Signed By: Milly Murry RN [facility] PT ED HNO ID: [id number] Author: Jelly (Rn) BRENDA Simmons Service: Nursing Author Type: Registered Nurse Type: Patient Education Filed: 01/01/2019 7:30 AM Note Text: PATIENT EDUCATION TOPIC: PROCEDURE / SURGERY: Pre-op Teaching: Protocols PATIENT NAME: Kerry Gay PATIENT LOCATION: [facility] OR POOL/FV OR POOL READINESS TO LEARN COGNITIVE ABILITY: Alert and oriented MOTIVATION TO LEARN: Interested FAMILY SUPPORT: Unable to assess - Family not present INSTRUCTION PROVIDED TO: Patient PATIENT LEARNS BEST BY: Individual Instruction FACTORS AFFECTING LEARNING: None PHYSICAL LIMITATIONS AFFECTING LEARNING: None LEARNING RESPONSE DIAGNOSIS: ADULT: surgery PATIENT/FAMILY RESPONSE: Verbalizes understanding of: PRE-OPERATIVE INSTRUCTIONS-Correct action to take to follow pre-operative instructions METHOD OF INSTRUCTION: Individual instruction FOLLOW-UP PLAN: Complete - No need for follow-up INSTRUCTIONAL AIDS USED: NA SUPPLEMENTAL MATERIAL PROVIDED TO PATIENT: None REFERRAL (RECOMMENDATION): None Electronically Signed By: Jelly Simmons RN [facility] SURGICAL PATHOLOGYon 019 SURGICAL PATHOLOGY Specimen originated from [facility] Specimen #: [id number] Submitting Physician: THEO JOAQUIN MD __ FINAL DIAGNOSIS Vulva, excision - High-grade squamous intraepithelial lesion (SONNY-3), classic type, with positive mucosal margins; see comment. AJP/lbk 01/05/2019 COMMENT Block A1 and A4 show positive mucosal margins for SONNY-3, which corresponds to the 12 o'clock margin (A1) and approximately the 10 to 11 o'clock margin (A4, green ink). Jerilyn Jose MD (Electronic Signature) SPECIMEN SUBMITTED A: VULVAR EXCISION CLINICAL DATA VULVAR INTRAEPITHELIAL NEOPLASIA III, PARTIAL VULVECTOMY SUTURE BIRD: LONG STITCH AT 6:00; SHORT STICH ON VAGINAL SIDE GROSS DESCRIPTION A. Received in formalin designated vulvar excision is a portion of skin that measures 3.5 x 2.4 x 0.5 cm. The skin surface is pink-donnelly and wrinkled with a pink-donnelly area of concavity that measures 1.5 x 1.2 cm. This area of concavity is located eccentrically, 1.5 cm from the 12 o'clock margin, 0.4 cm from the 3 o'clock margin, 0.5 cm from the 6 o'clock margin and 0.6 cm from the 9 o'clock margin. The underlying soft tissue is donnelly-yellow, rubbery and lobulated. There is a short suture that designates vaginal side and a long suture that designates 6 o'clock. The specimen is inked as follows: 12 o'clock to 6 o'clock is inked blue, 6 o'clock to 12 o'clock is inked green and the deep margin is inked black to reveal that the area concavity is located 0.2 cm from the deep margin. The specimen is entirely submitted as follows: A1-A2 12 o'clock margin perpendicular, A3 6 o'clock margin perpendicular, A4-A6 entire area of concavity submitted in sequential order from 12 o'clock to 6 o'clock. EL/clay 01/01/2019 Gross examination performed at [facility], [address] [place] [address] Date of Report: 01/05/2019 Date of Procedure: 01/01/2019 Date of Receipt: 01/01/2019 Submitted by: THEO JOAQUIN MD Location: [facility] Diagnostic interpretation performed at [facility], [address] [place] [address]. CLIA Number: [id number] [facility] NURSING PROGon 12-24-2018 NURSING PROG HNO ID: [id number] Author: Nataliya (Rn) BRENDA Bell Service: Nursing Author Type: Registered Nurse Type: Nursing Progress Note Filed: 12/24/2018 3:18 PM Note Text: PACC Nurse Progress Note History AND Physical: PACC Visit Date: 12/17/18 Original HANDP Date: N/A ED visit Date: N/A Outside HANDP Scanned Date: N/A Labs Within Last 6 Months: CBC: Date 12/17/18 BMP/CMP: Date 12/17/18 TYPE AND SCREEN: Date 12/17/18 [place]: Date 12/17/18 Results reviewed meet anesthesia guidelines. Imaging Within Last 12 Months: N/A Cardiac Testing: EKG in last 12 Months: Yes: Date: 12/17/18, Comment: Confirmed Last Menstrual Period: LMP Date: No LMP recorded Postmenopausal >1yr: Yes, S/P Hysterectomy: Yes BMI Percentile (PEDS): N/A Risk Assessment: N/A Anesthesia Review: N/A Narrative: N/A Pre-op Considerations: Diabetes (HCC) Assessment: on Actos, metformin and Humalog. States BG in Am 110-140, Last A1C- 6.5 ? ? Chart Check: COMPLETED Nataliya Bell RN December 24, 2018 3:07 PM [facility] Confirm Blood Typeon 019 ABO/RH(D) Positive [facility] Comment on above: Performed By: #### C ONABO #### [place] [address] Type and SCR (30D)on 019 ABO/RH(D) Positive [facility] Comment on above: Performed By: #### T SCR30 #### [place] [address] HOSPon 12-05-2018 HOSP Patient:Kerry Gay MRN: Height:5' 7 (1.702 m) Weight:200 lb (90.719 kg) Outpatient Medications as of 01/01/19: insulin lispro sliding scale 1 (HUMALOG) cyanocobalamin (VITAMIN B-12) 1,000 mcg tab folic acid 1 mg tablet lisinopril (ZESTRIL, PRINIVIL) 10 mg tablet metFORMIN (GLUCOPHAGE) 500 mg tablet metoclopramide HCl (REGLAN) 10 mg tablet nortriptyline (PAMELOR) 50 mg capsule omeprazole (PRILOSEC) 20 mg capsule pioglitazone (ACTOS) 15 mg tablet simvastatin (ZOCOR) 20 mg tablet temazepam (RESTORIL) 30 mg cap terconazole (TERAZOL 7) 0.4 % vaginal cream Admission/Clinic Administered Medications as of 01/01/19: lidocaine 10 mg/mL (1 %) 1-2 mg injection (XYLOCAINE) lactated ringers infusion lactated ringers infusion Problem List: Hypertension [I10] Diabetes (HCC) [E11.9] Hypercholesteremia [E78.00] Smoker [F17.200] Allergies: Sulfa (Sulfonamide Antibiotics) Date Verified: 01/01/19 Lab Values Lab Value Units Date High Low POTA* 4.4 mmol/L 12/17/2018 5.1 3.7 ELLEN* 51.2 % 12/17/2018 46.0 36.0 Progress Notes (SUPPORTIVE EMPLOYMENT CASE MANAGER [facility]): Aracelis Charles RN, RN 12/22/2018 11:38 AM Signed Pre-op teaching Procedure: vulvar surgery Physician: Location: [facility]: [phone] Date AND Time: 01/01/19 MEDICAL CLEARANCE: No CARDIAC CLEARANCE: No PRE ADMISSION TESTIN12/17/18 THE FOLLOWING WAS EVALUATED Motivation To Learn: Eager Family/Significant Other Support: Unable to assess - Family not present Cognitive Ability: Alert and oriented Patient Learns Best By: Individual Instruction Written Instruction - Hand-outs Verbal Instruction The Following Influencing Factors Were Barriers To This Education Session: None The Following Physical Limitations Were Barriers To This Education Session: None Instruction Provided To: Patient MEDICATION INFORMATION ASPIRIN and ADVIL can make you more prone to bleeding after surgery. Please STOP taking these medications at least (5) days before and for (3) days after surgery or procedure. Some common medications that contain ASPIRIN or act like Aspirin are TO BE AVOIDED: This is a list of the medications you should avoid: Advill Celebrex Motrin Aggrenox Clinoril Naprosyn(naproxen) Agrylin NSAIDS Pepto-Bismol Aleve Ecotrin Persantine [place] Excedrin Plaquenil Anacin Heparin Plavix Ascriptin Herbals Pletal Aspergum Ibuprofen Ticlid Miguelangel Indocin Trental Bextra Midol Vanquish Bufferin Gingko Biloba Vitamin E (MVI) MEDICATIONS YOU MAY SUBSTITUTE Anacin 3 Fioricet * Tylenol with codeine * Darvocet N 100 * Plenadol Percocet * Datril Sine-Aide Tylenol Excedrin PM (*Denotes prescription needed to obtain these medications) Learning Topic: Procedure/Surgery: Instructions reviewed for arrival time, parking and admission. Specific topics reviewed and discussed with all surgical patients include: No eating, drinking, or smoking after midnight prior to surgery. Medications as prescribed by anesthesia or the physician. Bowel Prep as indicated. Review of information contained in surgical packet Pre-operative and intra-operative general activities were reviewed including: Holding Area, assessments, surgical positioning, and Family Waiting Area. Written post-operative instructions were given to the patient regarding post-op activity, pain control, symptoms to report. Post-operative instructions provided and reviewed with patient/family: ACTIVITY - No heavy lifting (>5-10 lbs), no pushing/pulling, OK to climb stairs DRIVING - No driving while taking prescription pain medication, or within 24 hours of anesthesia, OK to ride in a car. DIET - Advance diet as tolerated and as ordered by MD, drink 8 glasses of water a day, eat a diet high in protein and fiber unless otherwise directed by MD. CATHETER - Will be inserted during surgery, you may go home with a catheter. If you go home with a catheter you will have to come back to the office for a voiding trial, UTI symptoms reviewed and patient instructed to notify MD of any of these symptoms. INCISION CARE - Keep incision clean and dry, tonio to be removed 7-10 days after surgery, steristrips do not need to be removed by MD BATHING - OK to shower after surgery unless otherwise directed by MD, no tub baths. PAIN MEDICATION - IV pain medication after surgery, IV RESEARCH CHEF if ordered by MD, discharged home with a prescription for PO pain medication, pain management after surgery, side effects of pain medication (including constipation, dizziness, drowsiness, and medication interactions). DVT PROPHYLAXIS - Early ambulation, SCDs, injectable anticoagulants (heparin, lovenox, etc) RESPIRATORY - Incentive spirometer, coughing/deep breathing exercises, ambulation. RETURN TO WORK - As directed by physician, please send any FMLA papers to physician's service secretary. SYMPTOMS TO NOTIFY MD - Fever, chills, nausea, vomiting, increased or severe pain, heavy vaginal bleeding, foul smelling vaginal drainage, pain or swelling in extremities. URGENT SYMPTOMS - Call 911 or go to ER if any shortness of breath, difficulty breathing, or chest pain. HOW TO CONTACT PHYSICIAN - Physician's office phone number given to patient, if after hours patient instructed to call conveyor belt operator and ask for the doctor manager operations research. Patient and family have phone number to call 24 hours/day. Patient Evaluation: Verbalizes understanding Patient and/or family express understanding of upcoming surgery and the operative process. Questions answered. Follow Up Plan: Follow up as needed Supplemental Material Given: Pre-operative teaching packet provided to the patient: INPATIENT/OUTPATIENT printed instructions; Post-operative instruction sheet, bowel prep instruction sheet For questions contact: office at [phone] Instructed By Aracelis Charles RN [facility] Serum or plasma calcidiol me asurement (mass/volume)on 07-10-2018 25-hydroxyvitamin D3 [Mass/Vol] 32.8 ng/mL 30-100 [facility] Comment on above: VITAMIN D STATUS 25( [place])VITAMIN D RANGE (ng/mL) Deficient <20 Insufficient 20 to <30Sufficient 30 to 100Reference: Sandra MF,Felisha NC, Leon SHERWOOD, et al. Evaluation,treatment, and prevention of vitamin D deficiency; an Endocrine Society clinical practice guideline. JCEM. 2010; 96(7):1911-30. Vitamin B12 ser/plason 07-10 Cobalamin (Vitamin B12) [Mass/Vol] 446 pg/mL 180-914 [facility] BASIC METABOLIC PANELon 04-29 Anion gap 11 mmol/L Normal 0-19 [facility] Comment on above: Performed By: #### B MP ####[address],[place] [address] BUN/Creatinine Ratio 16.0 RATIO Normal 8-21 [facility] Comment on above: Performed By: #### B MP ####[address],[place] [address] Calcium 9.1 mg/dL Normal 8.5-10.4 [facility] Comment on above: Performed By: #### B MP ####[address],[place] [address] Chloride 98 mmol/L Normal 97-107 [facility] Comment on above: Performed By: #### B MP ####[address],[place] [address] CO2 25 mmol/L Normal 24-31 [facility] Comment on above: Performed By: #### B MP ####[address],[place] [address] Creatinine 0.5 mg/dL Normal 0.4-1.6 [facility] Comment on above: Performed By: #### B MP ####[address],[place] [address] eGFR (MDRD) Normal [facility] Comment on above: Result Comment: 134G FR ml/min/1.73m2 Stage -----90 160-89 230-59 315-29 4<15 5For -Americans, multiply EGFR result by 1.210Calculation not validated for patients under 18 years of age.Performed at [facility],[address],[place] [address] Performed By: #### B MP ####[address],[place] [address] Glucose mass conc 331 mg/dL High 65-99 [facility] Comment on above: Performed By: #### B MP ####[address],[place] [address] Potassium molar conc 4.6 mmol/L Normal 3.4-5.1 [facility] Comment on above: Performed By: #### B MP ####[address],[place] [address] Sodium 134 mmol/L Normal 133-145 [facility] Comment on above: Performed By: #### B MP ####[address] [facility],[place] [address] Urea nitrogen 8 mg/dL Normal 8-25 [facility] Comment on above: Performed By: #### B MP ####[address] [facility],[place] [address] EKGon 05-16-2017 EKG EKGVentric ular Rate : 60 BPMAtrial Rate : 60 BPMP-R Interval : 166 msQRS Duration : 80 msQ-T Interval : 432 msQTC Calculation(Bezet) : 432 msCalculated P Howells : 63 degreesCalculated R Howells : 29 degreesCalculated T Howells : 35 degreesDiagnosis:Normal sinus rhythmNormal ECGNo previous ECGs availableConfirmed by Walter Slaughter ([id number]) on 05/16/2017 3:45:18 PM Normal [facility] HEMOGLOBIN,HCTon 05-16-2017 Hematocrit (HCT) High 36-44 [facility] Comment on above: Result Comment: 49.3 Performed at [facility],[address] [place] [address] Performed By: #### H H ####[address] [facility],[place] [address] Hemoglobin mass conc (Bld) 16.9 g/dL High 12.0-15.0 [facility] Comment on above: Performed By: #### H H ####[address] [facility],[place] [address] Operative Reporton 8 Operative Report Normal [facility] POCT GLUCOSEon 05-16-2017 Glucose mass conc 268 mg/dL High 65-99 [facility] Comment on above: Performed By: #### P CGL ####[address] [place] [address] Glucose mass conc 292 mg/dL High 65-99 [facility] Comment on above: Performed By: #### P CGL ####[address] [place] [address] Glucose mass conc 358 mg/dL High 65-99 [facility] Comment on above: Performed By: #### P CGL ####[address] [place] [address] Glucose mass conc 243 mg/dL High 65-99 [facility] [employer] [facility] Comment on above: Performed By: #### P CGL ####[facility] [place] [address] Vital Signs Date Time Vital Sign Value Performing Clinician Yue perez 01-15-2024 15:38-0400 Body height 170.18 cm DO Sandra Keita Work Phone: [phone] [place] [address] 01-15-2024 15:38-0400 Body mass index (BMI) [Ratio] 31.3 kg/m2 DO Sandra Keita Work Phone: [facility] 01-15-2024 15:38-0400 Body weight 90.77 kg DO Sandra Keita Work Phone: [facility] 11-18-2023 13:14-0400 Body height 170.18 cm DO Sandra Keita Work Phone: [facility] 11-18-2023 13:14-0400 Body mass index (BMI) [Ratio] 28.6 kg/m2 DO Sandra Keita Work Phone: [facility] 11-18-2023 13:14-0400 Body weight 83 kg DO Sandra Debbie Work Phone: [facility] 11-18-2023 13:14-0400 Diastolic blood pressure 62 mm[Hg] DO Sandra Keita Work Phone: [facility] 11-18-2023 13:14-0400 Heart rate 54 /min DO Sandra Keita Work Phone: [facility] 11-18-2023 13:14-0400 Respiratory rate 18 /min DO Sandra Keita Work Phone: [facility] 11-18-2023 13:14-0400 SaO2% (BldA) [Mass fraction] 97 % DO Sandra Keita Work Phone: [facility] 11-18-2023 13:14-0400 Systolic blood pressure 96 mm[Hg] DO Sandra Keita Work Phone: [facility] 11-14-2023 15:07-0400 Body height 170.18 cm DO Sandra Keita Work Phone: [facility] 11-14-2023 15:07-0400 Body mass index (BMI) [Ratio] 28.5 kg/m2 DO Sandra Keita Work Phone: [facility] 11-14-2023 15:07-0400 Body weight 82.8 kg DO Sandra Keita Work Phone: [facility] 11-14-2023 15:07-0400 Diastolic blood pressure 72 mm[Hg] DO Sandra Keita Work Phone: [facility] 11-14-2023 15:07-0400 Heart rate 67 /min DO Sandra Keita Work Phone: [facility] 11-14-2023 15:07-0400 Respiratory rate 18 /min DO Sandra Keita Work Phone: [facility] 11-14-2023 15:07-0400 SaO2% (BldA) [Mass fraction] 97 % DO Sandra Keita Work Phone: [facility] 11-14-2023 15:07-0400 Systolic blood pressure 110 mm[Hg] DO Sandra Keita Work Phone: [facility] 11-12-2023 16:12-0400 Diastolic blood pressure 83 mm[Hg] DO Sandra Keita Work Phone: [facility] 11-12-2023 16:12-0400 Heart rate 61 /min DO Sandra Keita Work Phone: [facility] 11-12-2023 16:12-0400 Respiratory rate 16 /min DO Sandra Keita Work Phone: [facility] 11-12-2023 16:12-0400 SaO2% (BldA) [Mass fraction] 96 % DO Sandra Keita Work Phone: [facility] 11-12-2023 16:12-0400 Systolic blood pressure 149 mm[Hg] DO Sandra Keita Work Phone: [facility] 11-12-2023 12:16-0400 Body temperature 97.5 [degF] DO Sandra Keita Work Phone: [facility] 11-12-2023 06:00-0400 Body weight 83.5 kg DO Sandra Keita Work Phone: [facility] 11-10-2023 08:23-0400 Body height 170.18 cm DO Sandra Keita Work Phone: [facility] 11-10-2023 05:05-0400 Diastolic blood pressure 67 mm[Hg] DO Sandra Keita Work Phone: [facility] 11-10-2023 05:05-0400 Heart rate 62 /min DO Sandra Keita Work Phone: [facility] 11-10-2023 05:05-0400 Respiratory rate 18 /min DO Sandra Keita Work Phone: [facility] 11-10-2023 05:05-0400 SaO2% (BldA) [Mass fraction] 100 % DO Sandra Keita Work Phone: [facility] 11-10-2023 05:05-0400 Systolic blood pressure 144 mm[Hg] DO Sandra Keita Work Phone: [facility] 11-10-2023 03:44-0400 Body temperature 98.1 [degF] DO Sandra Keita Work Phone: [facility] 11-09-2023 22:16-0400 Body height 170.18 cm DO Sandra Keita Work Phone: [facility] 11-09-2023 22:16-0400 Body weight 81.64 kg DO Sandrarebecca Keita Work Phone: [facility] 11-05-2023 12:36-0400 SaO2% (BldA) [Mass fraction] 100 % DO Sandra Keita Work Phone: [facility] 10-07-2023 09:48-0400 Body height 170.2 cm Darrell Ch MD Work Phone: [facility] 10-07-2023 09:48-0400 Body mass index (BMI) [Ratio] 28.19 kg/m2 Darrell Ch MD Work Phone: [facility] 10-07-2023 09:48-0400 Body weight 81.65 kg Darrell Ch MD Work Phone: [facility] 10-07-2023 09:48-0400 Diastolic blood pressure 90 mm[Hg] Darrell Ch MD Work Phone: [facility] 10-07-2023 09:48-0400 Heart rate 92 /min Darrell Ch MD Work Phone: [facility] 10-07-2023 09:48-0400 Systolic blood pressure 114 mm[Hg] Darrell Ch MD Work Phone: [facility] 09-17-2023 13:02-0400 Body height 167.64 cm DO Sandra Keita Work Phone: [facility] 09-17-2023 13:02-0400 Body mass index (BMI) [Ratio] 29 kg/m2 DO Sandra Keita Work Phone: [facility] 09-17-2023 13:02-0400 Body weight 81.67 kg DO Sandra Keita Work Phone: [facility] 09-17-2023 13:02-0400 Diastolic blood pressure 64 mm[Hg] DO Sandra Keita Work Phone: [facility] 09-17-2023 13:02-0400 Heart rate 117 /min DO Sandra Keita Work Phone: [facility] 09-17-2023 13:02-0400 Respiratory rate 18 /min DO Sandra Keita Work Phone: [facility] 09-17-2023 13:02-0400 SaO2% (BldA) [Mass fraction] 99 % DO Sandra Keita Work Phone: [facility] 09-17-2023 13:02-0400 Systolic blood pressure 92 mm[Hg] DO Sandra Keita Work Phone: [facility] 09-14-2023 16:11-0400 Body temperature 97.7 [degF] DO Sandra Keita Work Phone: [facility] 09-14-2023 16:11-0400 Diastolic blood pressure 70 mm[Hg] DO Sandra Keita Work Phone: [facility] 09-14-2023 16:11-0400 Heart rate 74 /min DO Sandra Keita Work Phone: [facility] 09-14-2023 16:11-0400 Respiratory rate 17 /min DO Sandra Keita Work Phone: [facility] 09-14-2023 16:11-0400 SaO2% (BldA) [Mass fraction] 95 % DO Sandra Keita Work Phone: [facility] 09-14-2023 16:11-0400 Systolic blood pressure 115 mm[Hg] DO Sandra Keita Work Phone: [facility] 09-14-2023 06:00-0400 Body weight 83.2 kg DO Sandra Keita Work Phone: [facility] 09-13-2023 12:41-0400 Body height 170.18 cm DO Sandra Keita Work Phone: [facility] 09-12-2023 13:58-0400 Body height 167.64 cm DO Sandra Keita Work Phone: [facility] 09-12-2023 13:58-0400 Body mass index (BMI) [Ratio] 29 kg/m2 DO Sandra Keita Work Phone: [facility] 09-12-2023 13:58-0400 Body weight 81.64 kg DO Sandra Keita Work Phone: [facility] 09-12-2023 13:58-0400 Diastolic blood pressure 81 mm[Hg] DO Sandra Keita Work Phone: [facility] 09-12-2023 13:58-0400 Heart rate 135 /min DO Sandra Debbie Work Phone: [facility] 09-12-2023 13:58-0400 Respiratory rate 18 /min DO Sandra Debbie Work Phone: [facility] 09-12-2023 13:58-0400 SaO2% (BldA) [Mass fraction] 97 % DO Sandra Debbie Work Phone: [facility] 09-12-2023 13:58-0400 Systolic blood pressure 112 mm[Hg] DO Sandra Keita Work Phone: [facility] 07-17-2023 11:43-0400 Body height 167.64 cm [facility] 07-17-2023 11:43-0400 Body mass index (BMI) [Ratio] 28.8 kg/m2 [facility] 07-17-2023 11:43-0400 Body temperature 97.8 [degF] [facility] 07-17-2023 11:43-0400 Body weight 81.19 kg [facility] 07-17-2023 11:43-0400 Diastolic blood pressure 64 mm[Hg] [facility] 07-17-2023 11:43-0400 Heart rate 78 /min [facility] 07-17-2023 11:43-0400 Respiratory rate 16 /min [facility] 07-17-2023 11:43-0400 SaO2% (BldA) [Mass fraction] 98 % [facility] 07-17-2023 11:43-0400 Systolic blood pressure 112 mm[Hg] [facility] 06-19-2023 15:53-0500 Body height 167.64 cm [facility] 06-19-2023 15:53-0500 Body mass index (BMI) [Ratio] 28.9 kg/m2 [facility] 06-19-2023 15:53-0500 Body weight 81.33 kg [facility] 06-19-2023 15:53-0500 Diastolic blood pressure 68 mm[Hg] [facility] 06-19-2023 15:53-0500 Heart rate 95 /min [facility] 06-19-2023 15:53-0500 Respiratory rate 18 /min [facility] 06-19-2023 15:53-0500 SaO2% (BldA) [Mass fraction] 97 % [facility] 06-19-2023 15:53-0500 Systolic blood pressure 92 mm[Hg] [facility] 06-12-2023 15:38-0500 Body height 167.64 cm [facility] 06-12-2023 15:38-0500 Body mass index (BMI) [Ratio] 28.5 kg/m2 [facility] 06-12-2023 15:38-0500 Body weight 80.28 kg [facility] 06-12-2023 15:38-0500 Diastolic blood pressure 72 mm[Hg] [facility] 06-12-2023 15:38-0500 Heart rate 95 /min [facility] 06-12-2023 15:38-0500 Respiratory rate 18 /min [facility] 06-12-2023 15:38-0500 SaO2% (BldA) [Mass fraction] 99 % [facility] 06-12-2023 15:38-0500 Systolic blood pressure 111 mm[Hg] [facility] 03-04-2023 15:00-0500 Body height 167.64 cm Sandra Keita Other [employer] Other 03-04-2023 15:00-0500 Body mass index (BMI) [Ratio] 29.97 kg/m2 Sandra Keita Other [employer] Other 03-04-2023 15:00-0500 Body weight 84.23 kg Sandra Keita Other [employer] Other 03-04-2023 15:00-0500 Diastolic blood pressure 68 mm[Hg] Sandra Keita Other [employer] Other 03-04-2023 15:00-0500 Respiratory rate 18 /min Sandra Keita Other [employer] Other 03-04-2023 15:00-0500 SaO2% (BldA) [Mass fraction] 96 % Sandra Keita Other [employer] Other 03-04-2023 15:00-0500 Systolic blood pressure 98 mm[Hg] Sandra Keita Other [employer] Other 01-07-2023 14:00-0400 Body height 167.64 cm Tondra Mapus Other [employer] Other 01-07-2023 14:00-0400 Body mass index (BMI) [Ratio] 30.03 kg/m2 Tondra Mapus Other [employer] Other 01-07-2023 14:00-0400 Body weight 84.41 kg Tondra Mapus Other [employer] Other 01-07-2023 14:00-0400 Diastolic blood pressure 68 mm[Hg] Tondra Mapus Other [employer] Other 01-07-2023 14:00-0400 Respiratory rate 18 /min Tondra Mapus Other [employer] Other 01-07-2023 14:00-0400 SaO2% (BldA) [Mass fraction] 98 % Tondra Mapus Other [employer] Other 01-07-2023 14:00-0400 Systolic blood pressure 102 mm[Hg] Tondra Mapus Other [employer] Other 01-02-2023 11:00-0400 Body height 167.64 cm Brayden Noble Other [employer] Other 01-02-2023 11:00-0400 Body mass index (BMI) [Ratio] 29.7 kg/m2 Brayden Noble Other [employer] Other 01-02-2023 11:00-0400 Body weight 83.46 kg Brayden Noble Other [employer] Other 01-02-2023 11:00-0400 Diastolic blood pressure 78 mm[Hg] Brayden Noble Other [employer] Other 01-02-2023 11:00-0400 Systolic blood pressure 120 mm[Hg] Brayden Noble Other [employer] Other 11-28-2022 15:00-0400 Body height 167.64 cm Sandra Keita Other [employer] Other 11-28-2022 15:00-0400 Body mass index (BMI) [Ratio] 29.58 kg/m2 Sandra Keita Other [employer] Other 11-28-2022 15:00-0400 Body weight 83.14 kg Sandra Keita Other [employer] Other 11-28-2022 15:00-0400 Diastolic blood pressure 72 mm[Hg] Sandra Keita Other [employer] Other 11-28-2022 15:00-0400 Respiratory rate 20 /min Sandra Keita Other [employer] Other 11-28-2022 15:00-0400 SaO2% (BldA) [Mass fraction] 99 % Sandra Keita Other [employer] Other 11-28-2022 15:00-0400 Systolic blood pressure 115 mm[Hg] Sandra Keita Other [employer] Other 09-27-2022 14:15-0400 Body height 167.64 cm Tondra Mapus Other [employer] Other 09-27-2022 14:15-0400 Body mass index (BMI) [Ratio] 29.53 kg/m2 Tondra Mapus Other [employer] Other 09-27-2022 14:15-0400 Body weight 83.01 kg Tondra Mapus Other [employer] Other 09-27-2022 14:15-0400 Diastolic blood pressure 66 mm[Hg] Tondra Mapus Other [employer] Other 09-27-2022 14:15-0400 Respiratory rate 18 /min Tondra Mapus Other [employer] Other 09-27-2022 14:15-0400 SaO2% (BldA) [Mass fraction] 97 % Tondra Mapus Other [employer] Other 09-27-2022 14:15-0400 Systolic blood pressure 100 mm[Hg] Tondra Mapus Other [employer] Other 08-09-2022 16:15-0400 Body height 167.64 cm Sandra Keita Other [employer] Other 08-09-2022 16:15-0400 Body mass index (BMI) [Ratio] 29.86 kg/m2 Sandra Keita Other [employer] Other 08-09-2022 16:15-0400 Body weight 83.92 kg Sandrarebecca Keita Other [employer] Other 08-09-2022 16:15-0400 Diastolic blood pressure 74 mm[Hg] Sandra Debbie Other [employer] Other 08-09-2022 16:15-0400 Respiratory rate 18 /min Sandra Keita Other [employer] Other 08-09-2022 16:15-0400 SaO2% (BldA) [Mass fraction] 97 % Sandra Keita Other [employer] Other 08-09-2022 16:15-0400 Systolic blood pressure 118 mm[Hg] Sandra Keita Other [employer] Other 06-18-2022 15:30-0500 Body height 167.64 cm Tondra Mapus Other [employer] Other 06-18-2022 15:30-0500 Body mass index (BMI) [Ratio] 35.34 kg/m2 Tondra Mapus Other [facility] Other 06-18-2022 15:30-0500 Body weight 99.34 kg Tondra Mapus Other [facility] Other 06-18-2022 15:30-0500 Diastolic blood pressure 72 mm[Hg] Tondra Mapus Other [facility] Other 06-18-2022 15:30-0500 Respiratory rate 18 /min Tondra Mapus Other [facility] Other 06-18-2022 15:30-0500 SaO2% (BldA) [Mass fraction] 97 % Tondra Mapus Other [facility] Other 06-18-2022 15:30-0500 Systolic blood pressure 108 mm[Hg] Tondra Mapus Other [facility] Other 01-09-2022 14:00-0400 Body height 167.64 cm Tondra Mapus Other [facility] Other 01-09-2022 14:00-0400 Body mass index (BMI) [Ratio] 28.73 kg/m2 Tondra Mapus Other [facility] Other 01-09-2022 14:00-0400 Body weight 80.74 kg Tondra Mapus Other [facility] Other 01-09-2022 14:00-0400 Diastolic blood pressure 79 mm[Hg] Tondra Mapus Other [facility] Other 01-09-2022 14:00-0400 Respiratory rate 16 /min Tondra Mapus Other [facility] Other 01-09-2022 14:00-0400 SaO2% (BldA) [Mass fraction] 97 % Tondra Mapus Other [facility] Other 01-09-2022 14:00-0400 Systolic blood pressure 127 mm[Hg] Tondra Mapus Other [facility] Other 12-17-2021 08:23-0400 Diastolic blood pressure 63 mm[Hg] DO Tray Jer [facility] 12-17-2021 08:23-0400 Heart rate 82 /min DO Tray [facility] 12-17-2021 08:23-0400 Respiratory rate 18 /min DO Tray [facility] 12-17-2021 08:23-0400 SaO2% (BldA) [Mass fraction] 98 % [facility]-17-[facility]21 08:23-0400 Systolic blood pressure 135 mm[Hg] DO Tray [facility] 12-17-2021 05:29-0400 Body height 170.18 cm DO Tray [facility] 12-17-2021 05:29-0400 Body temperature 97.4 [degF] DO Tray [facility] 12-17-2021 05:29-0400 Body weight 82.55 kg DO Tray [facility] 12-14-2021 06:58-0400 Body height 170.18 cm DO Tray [facility] 12-14-2021 06:58-0400 Body mass index (BMI) [Ratio] 29.2 kg/m2 DO Trayumu Rand[facility] 12-14-2021 06:58-0400 Body weight 84.8 kg DO Tray [facility] 12-13-2021 11:06-0400 Body temperature 97.7 [degF] DO Tray [facility] 12-13-2021 11:06-0400 Diastolic blood pressure 67 mm[Hg] DO Trayumu Randle [facility] 12-13-2021 11:06-0400 Heart rate 88 /min DO Tray[facility] 12-13-2021 11:06-0400 Respiratory rate 16 /min DO Trayumu [facility] 12-13-2021 11:06-0400 SaO2% (BldA) [Mass fraction] 93 % DO Trayumu Randle [facility] 12-13-2021 11:06-0400 Systolic blood pressure 119 mm[Hg] DO [facility] 12-13-2021 08:00-0400 Inhaled oxygen flow rate 3 L/min DO [facility] 10-12-2021 11:00-0400 Body height 167.64 cm Crispin Looney Other [facility] Other 10-12-2021 11:00-0400 Body mass index (BMI) [Ratio] 29.81 kg/m2 Crispin Looney Other [facility] Other 10-12-2021 11:00-0400 Body weight 83.78 kg Crispin Looney Other [facility] Other 10-12-2021 11:00-0400 Diastolic blood pressure 68 mm[Hg] Crispin Looney Other [facility] Other 10-12-2021 11:00-0400 Respiratory rate 18 /min Crispin Looney Other [facility] Other 10-12-2021 11:00-0400 SaO2% (BldA) [Mass fraction] 97 % Crispin Looney Other [facility] Other 10-12-2021 11:00-0400 Systolic blood pressure 97 mm[Hg] Crispin Looney Other [facility] Other 07-10-2021 14:30-0400 Body height 167.64 cm Angelique Mapus Other [facility] Other 07-10-2021 14:30-0400 Body mass index (BMI) [Ratio] 30.34 kg/m2 Tondra Mapus Other [facility] Other 07-10-2021 14:30-0400 Body weight 85.28 kg Tondra Mapus Other [facility] Other 07-10-2021 14:30-0400 Diastolic blood pressure 60 mm[Hg] Tondra Mapus Other [facility] Other 07-10-2021 14:30-0400 Respiratory rate 16 /min Tona Leonardous Other [facility] Other 07-10-2021 14:30-0400 SaO2% (BldA) [Mass fraction] 97 % Tondra Mapus Other [facility] Other 07-10-2021 14:30-0400 Systolic blood pressure 89 mm[Hg] Tondra Mapus Other [facility] Other 07-03-2021 16:00-0500 Body height 167.64 cm Ruben Avendañoracquel Other [facility] Other 07-03-2021 16:00-0500 Body mass index (BMI) [Ratio] 30.5 kg/m2 Ruben Avendañoracquel Other [facility] Other 07-03-2021 16:00-0500 Body temperature 95.5 [degF] Ruben Avendañoracquel Other [facility] Other 07-03-2021 16:00-0500 Body weight 85.73 kg Ruben Avendañoracquel Other [facility] Other 07-03-2021 16:00-0500 Diastolic blood pressure 68 mm[Hg] Ruben Katerynaban Other [facility] Other 07-03-2021 16:00-0500 SaO2% (BldA) [Mass fraction] 99 % Ruebn Avendañoban Other [facility] Other 07-03-2021 16:00-0500 Systolic blood pressure 94 mm[Hg] Gaudencioal Chaban Other [facility] Other 05-08-2021 14:15-0500 Body height 167.64 cm Crispin Looney Other [facility] Other 05-08-2021 14:15-0500 Body mass index (BMI) [Ratio] 30.87 kg/m2 Crispin Looney Other [facility] Other 05-08-2021 14:15-0500 Body weight 86.77 kg Crispin Looney Other [facility] Other 05-08-2021 14:15-0500 Diastolic blood pressure 58 mm[Hg] Crispin Looney Other [facility] Other 05-08-2021 14:15-0500 Respiratory rate 20 /min Crispin Looney Other [facility] Other 05-08-2021 14:15-0500 SaO2% (BldA) [Mass fraction] 98 % Crispin Looney Other [facility] Other 05-08-2021 14:15-0500 Systolic blood pressure 102 mm[Hg] Crispin Leeahan Other [facility] Other 04-03-2021 15:00-0500 Body height 167.64 cm Tray Nava Other [facility] Other 04-03-2021 15:00-0500 Body mass index (BMI) [Ratio] 30.99 kg/m2 Tray Nava Other [facility] Other 04-03-2021 15:00-0500 Body temperature 98.3 [degF] Tray Nava Other [facility] Other 04-03-2021 15:00-0500 Body weight 87.09 kg Tray Ceballospratibha Other [facility] Other 04-03-2021 15:00-0500 Diastolic blood pressure 68 mm[Hg] Tray Ceballospratibha Other [facility] Other 04-03-2021 15:00-0500 SaO2% (BldA) [Mass fraction] 93 % Tray Ceballospratibha Other [facility] Other 04-03-2021 15:00-0500 Systolic blood pressure 110 mm[Hg] Tray Ceballospratibha Other [facility] Other 03-27-2021 15:00-0500 Body height 167.64 cm Tondra Mapus Other [facility] Other 03-27-2021 15:00-0500 Body mass index (BMI) [Ratio] 30.99 kg/m2 Tondra Mapus Other [facility] Other 03-27-2021 15:00-0500 Body weight 87.09 kg Tondra Mapus Other [facility] Other 03-27-2021 15:00-0500 Diastolic blood pressure 75 mm[Hg] Tondra Mapus Other [facility] Other 03-27-2021 15:00-0500 Respiratory rate 20 /min Tondra Mapus Other [facility] Other 03-27-2021 15:00-0500 SaO2% (BldA) [Mass fraction] 97 % Angelique Russell Other [facility] Other 03-27-2021 15:00-0500 Systolic blood pressure 124 mm[Hg] Angelique Russell Other [facility] Other 02-27-2021 16:00-0400 Body height 167.64 cm Tray Brandy Other [facility] Other 02-27-2021 16:00-0400 Body mass index (BMI) [Ratio] 30.66 kg/m2 Tray Nava Other [facility] Other 02-27-2021 16:00-0400 Body weight 86.18 kg Tray Brandy Other [facility] Other 02-27-2021 16:00-0400 Diastolic blood pressure 76 mm[Hg] Tray Brandy Other [facility] Other 02-27-2021 16:00-0400 Systolic blood pressure 123 mm[Hg] Tray Brandy Other [facility] Other 08-27-2017 12:01-0400 Body height 170.18 cm DO Darrell Yoder Work Phone: [facility] Encounters Encounter Date Encounter Type Care Provider Facility Start: 01-27-2024 End: 01-27-2024 Office outpatient visit 15 minutes Karl Fritz DPM Work Phone: [facility] Comment on above: Ulcer of right foot, limited to breakdown of skin (CMS/HCC) (Primary Dx); Blister of right foot, subsequent encounter; 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) Start: 01-27-2024 End: 01-27-2024 ambulatory KARL FRITZ Not Available Start: 01-21-2024 End: 01-21-2024 ambulatory KARL FRITZ Not Available Start: 01-15-2024 End: 01-15-2024 ambulatory DO Sandra A Keita Work Phone: [facility] Work Phone: Start: 01-15-2024 End: 01-15-2024 Patient encounter procedure DO Sandra Keita Work Phone: [facility] Work Phone: Start: 01-07-2024 End: 01-07-2024 Departed Referred DO Sandra Keita Work Phone: [facility] [place] Work Phone: Start: 01-07-2024 End: 01-07-2024 ambulatory DO Sandra A Keita Work Phone: [facility] Work Phone: Start: 01-06-2024 End: 01-06-2024 Patient encounter procedure DO Sandra Keita Work Phone: [facility]Ul[facility] [place] Work Phone: Start: 01-06-2024 End: 01-06-2024 ambulatory DO Sandra A Keita Work Phone: [facility] Work Phone: Start: 01-03-2024 End: 01-03-2024 ambulatory OZ D BEJ Not Available Start: 12-17-2023 End: 12-17-2023 Patient encounter procedure DO Sandra Keita Work Phone: [facility] [address] Work Phone: Start: 12-17-2023 End: 12-17-2023 ambulatory DO Sandra A Keita Work Phone: [facility] Work Phone: Start: 12-16-2023 End: 12-16-2023 ambulatory [facility] Ambulatory Start: 12-13-2023 End: 12-13-2023 ambulatory OZ D BEJ Not Available Start: 12-12-2023 End: 12-12-2023 ambulatory OZ D BEJ Not Available Start: 12-02-2023 End: 12-02-2023 Patient encounter procedure DO Sandra Keita Work Phone: [facility] [place] Work Phone: Start: 12-02-2023 End: 12-02-2023 ambulatory DO Sandra A Keita Work Phone: [facility] Work Phone: Start: 11-29-2023 End: 11-29-2023 ambulatory OZ D BEJ Not Available Start: 11-26-2023 End: 11-26-2023 Patient encounter procedure DO Sandra Keita Work Phone: [facility] [place] Work Phone: Start: 11-26-2023 End: 11-26-2023 ambulatory DO Sandra A Keita Work Phone: [facility] Work Phone: Start: 11-18-2023 End: 11-18-2023 ambulatory DO Sandra A Keita Work Phone: [facility] Work Phone: Start: 11-18-2023 End: 11-18-2023 Patient encounter procedure DO Sandra Keita Work Phone: [facility] Family Medicine [place] Work Phone: Start: 11-16-2023 Non-patient / Non-visit DO Millie jacob Keita Work Phone: [facility] Work Phone: Start: 11-15-2023 End: 11-15-2023 Patient encounter procedure DO Sandra Debbie Work Phone: [facility]Respiratory Therapy Work Phone: Start: 11-15-2023 End: 11-15-2023 ambulatory DO Sandra A Debbie Work Phone: [facility] Work Phone: Start: 11-14-2023 End: 11-14-2023 ambulatory DO Sandra A Debbie Work Phone: [facility] Work Phone: Start: 11-14-2023 End: 11-14-2023 Patient encounter procedure DO Sandra Debbie Work Phone: [facility] Work Phone: Start: 11-13-2023 End: 11-13-2023 ambulatory [facility] Ambulatory Start: 11-13-2023 Non-patient / Non-visit DO Millie jacob Debbie Work Phone: [facility] Work Phone: Start: 11-10-2023 End: 11-12-2023 ambulatory Jluis Campos Facility:[facility] Start: 11-10-2023 End: 11-12-2023 Evaluation and management of inpatient DO Sandra Debbie Work Phone: [facility] Work Phone: Start: 11-06-2023 End: 11-06-2023 ambulatory JALYN MARCELLO Not Available Start: 11-05-2023 End: 11-05-2023 Admission to same day surgery center DO Sandra Debbie Work Phone: [facility]Electrodiagnostics Work Phone: Start: 11-05-2023 End: 11-05-2023 ambulatory DO Sandra A Debbie Work Phone: [facility] Work Phone: Start: 10-30-2023 End: 10-30-2023 Patient encounter procedure DO Sandra [facility] Work Phone: [facility] Work Phone: Start: 10-30-2023 End: 10-30-2023 ambulatory DO Sandra A [facility] Work Phone: [facility] Work Phone: Start: 10-29-2023 End: 10-29-2023 ambulatory OZ Llilian KINCAID Not Available Start: 10-07-2023 End: 10-07-2023 Office outpatient visit 25 minutes Darrell Ch MD Work Phone: [facility] Comment on above: Typical atrial flutt er (Multi); Nonischemic cardiomyopathy (Multi); Hypertension, unspecified type; Hypercholesteremia; Smoker; Type 2 diabetes mellitus with other specified complication, unspecified whether adjunct faculty for medical terminology insulin use (Multi); BMI 28.0-28.9,adult Start: 10-07-2023 End: 10-07-2023 ambulatory DARRELL CH [facility] Ambulatory Start: 09-25-2023 End: 09-25-2023 ambulatory SANDRA A [facility] Ambulatory Start: 09-17-2023 End: 09-17-2023 ambulatory DO Sandra A [facility] Work Phone: [facility] Work Phone: Start: 09-17-2023 End: 09-17-2023 Patient encounter procedure DO Sandra Keita Work Phone: [facility] Family Medicine [place] Work Phone: Start: 09-16-2023 Non-patient / Non-visit DO Millie jacob [facility] Work Phone: [facility] Family Medicine [place] Work Phone: Start: 09-14-2023 End: 09-14-2023 Non-patient / Non-visit DO Sandra Dbebie Work Phone: [facility] Cardiology Work Phone: Start: 09-13-2023 End: 09-14-2023 Evaluation and management of inpatient DO Sandra Debbie Work Phone: [facility] [place] [facility] Work Phone: Start: 09-12-2023 End: 09-12-2023 Patient encounter procedure DO Sandra Debbie Work Phone: [facility] Work Phone: Start: 09-09-2023 Non-patient / Non-visit DO Millie jacob Debbie Work Phone: [facility] Family Medicine [place] Work Phone: Start: 09-05-2023 End: 09-05-2023 Patient encounter procedure DO Sandra Debbie Work Phone: [facility] [place] Work Phone: Start: 09-05-2023 End: 09-05-2023 ambulatory DO Sandra A Debbie Work Phone: [facility] Work Phone: Start: 07-25-2023 End: 07-25-2023 Patient encounter procedure DO Sandra Debbie Work Phone: [facility] [address] Work Phone: Start: 07-25-2023 End: 07-25-2023 ambulatory DO Sandra A Debbie Work Phone: [facility] Work Phone: Start: 07-17-2023 End: 07-17-2023 ambulatory [facility] Work Phone: Start: 07-17-2023 End: 07-17-2023 Patient encounter procedure [facility] Work Phone: Start: 06-19-2023 End: 06-19-2023 ambulatory [facility] Work Phone: Start: 06-19-2023 End: 06-19-2023 Patient encounter procedure [facility] Work Phone: Start: 06-12-2023 End: 06-12-2023 Patient encounter procedure [facility] Work Phone: Start: 06-12-2023 End: 06-12-2023 ambulatory Sandra Rebecca Keita [facility] Work Phone: Start: 06-10-2023 End: 06-10-2023 ambulatory Tondra Mapus Other [facility] Other Start: 06-10-2023 Telephone encounter Tondra Yvonne [facility] Start: 05-21-2023 End: 05-21-2023 ambulatory Sandra Keita Other [facility] Other Start: 05-21-2023 Telephone encounter Sandra Keita [facility] Start: 04-30-2023 End: 04-30-2023 ambulatory Tondra Mapus Other [facility] Other Start: 04-30-2023 Telephone encounter Tondra Yvonne [facility] Start: 04-11-2023 End: 04-11-2023 ambulatory Sandra Keita Other [facility] Other Start: 04-11-2023 Telephone encounter Sandra Keita [facility] Start: 04-08-2023 End: 04-08-2023 ambulatory Sandra Keita Other [facility] Other Start: 04-08-2023 Telephone encounter Sandrajacob Keita [facility] Start: 03-05-2023 End: 03-05-2023 Patient encounter procedure DO Darrell Yoder Work Phone: [facility] Work Phone: Start: 03-05-2023 End: 03-05-2023 ambulatory DO Darrell Yoder Work Phone: [facility] Work Phone: Start: 03-04-2023 End: 03-04-2023 ambulatory Sandra Keita Other [facility] Other Start: 03-04-2023 Office outpatient vi sit 25 minutes Sandra Keita [facility] Start: 01-28-2023 End: 01-28-2023 ambulatory Sandra Keita Other [facility] Other Start: 01-28-2023 Telephone encounter Sandra Keita [facility] Start: 01-07-2023 Registered Recurring DO Beba Yoder Work Phone: [facility] Work Phone: Start: 01-07-2023 (DM) Diabetes Tondra Mapus [facility] Start: 01-07-2023 End: 01-07-2023 ambulatory Tondra Mapus Other [facility] Other Start: 01-02-2023 End: 01-02-2023 ambulatory Brayden Noble Other [facility] Other Start: 01-02-2023 Office outpatient vi sit 15 minutes Brayden Noble [facility] Gastroenterology Start: 12-28-2022 End: 12-28-2022 ambulatory Sandra Keita Other [facility] Other Start: 12-28-2022 Telephone encounter Sandra Keita [facility] [place] Start: 12-18-2022 End: 12-18-2022 ambulatory Reyna Dallas Other [facility] Other Start: 12-18-2022 Telephone encounter Reyna Dallas [facility] [place] Start: 12-10-2022 End: 12-10-2022 ambulatory Tondra Yvonne Other [facility] Other Start: 12-10-2022 Telephone encounter Tondra Yvonne [facility] Start: 11-28-2022 End: 11-28-2022 ambulatory Sandra Keita Other [facility] Other Start: 11-28-2022 Patient encounter procedure Sandra Keita [facility] Start: 11-27-2022 End: 11-27-2022 ambulatory Sandra Keita Other [facility] Other Start: 11-27-2022 Telephone encounter Sandra Keita [facility] Start: 11-06-2022 End: 11-06-2022 ambulatory Sandra Keita Other [facility] Other Start: 11-06-2022 Telephone encounter Sandrajacob Keita [facility] [place] Start: 09-27-2022 (DM) Diabetes Tondra Yvonne [facility] Start: 09-27-2022 End: 09-27-2022 ambulatory Tondra Leonardous Other [facility] Other Start: 09-10-2022 End: 09-10-2022 ambulatory Sandrarebecca Keita Other [facility] Other Start: 09-10-2022 Telephone encounter Sandrajacob Keita [facility] Start: 09-05-2022 Telephone encounter Sandrajacob Keita [facility] Family Medicine [place] Start: 09-05-2022 End: 09-05-2022 ambulatory DO Sandra Rebecca Keita Work Phone: [facility] Work Phone: Start: 09-05-2022 End: 09-05-2022 Patient encounter procedure DO Sandra Debbie Work Phone: [facility] Work Phone: Start: 08-22-2022 Telephone encounter Sandrajacob Keita [facility] [place] Start: 08-22-2022 End: 08-22-2022 ambulatory DO Sandra Rebecca Keita Work Phone: [facility] Work Phone: Start: 08-22-2022 End: 08-22-2022 Patient encounter procedure DO Sandrarebecca Keita Work Phone: [facility] [address] Work Phone: Start: 08-09-2022 End: 08-09-2022 ambulatory Sandrajacob Keita Other [facility] Other Start: 08-09-2022 Office outpatient vi sit 15 minutes Sandra Keita [facility] [place] Start: 08-06-2022 End: 08-06-2022 ambulatory Sandrajacob Keita Other [facility] Other Start: 08-06-2022 Telephone encounter Sandra Keita [facility] Family [facility] [place] Start: 07-10-2022 End: 07-10-2022 ambulatory Sandrajacob Keita Other [facility] Other Start: 07-10-2022 Telephone encounter Sandra Keita [facility] Start: 07-04-2022 End: 07-04-2022 ambulatory Tolu Salinas Other [facility] Other Start: 07-04-2022 Telephone encounter Tolu Salinas [facility] Medicine [place] Start: 06-19-2022 End: 06-19-2022 ambulatory Tondra Mapus Other [facility] Other Start: 06-19-2022 Telephone encounter Tondra Mapus [facility] Start: 06-18-2022 (DM) Diabetes Tondra Mapus [facility] Start: 06-18-2022 End: 06-18-2022 ambulatory Tondra Mapus Other [facility] Other Start: 06-14-2022 End: 06-14-2022 ambulatory Tondra Mapus Other [facility] Other Start: 06-14-2022 Telephone encounter Tondra Mapus [facility] Start: 06-08-2022 End: 06-08-2022 ambulatory Tondra Mapus Other [facility] Other Start: 06-08-2022 Telephone encounter Tondra Mapus [facility] Start: 06-04-2022 End: 06-04-2022 ambulatory Sandra Debbie Other [facility] Other Start: 06-04-2022 Telephone encounter Sandra Keita [facility] Medicine [place] Start: 05-30-2022 End: 05-30-2022 ambulatory Sandra Debbie Other [facility] Other Start: 05-30-2022 Telephone encounter Sandra Keita [facility] [place] Start: 05-24-2022 End: 05-24-2022 ambulatory Sandra Keita Other [facility] Other Start: 05-24-2022 Telephone encounter Sandra Keita [facility] Family Medicine [place] Start: 04-03-2022 End: 04-03-2022 ambulatory Sandra Keita Other [facility] Other Start: 04-03-2022 Telephone encounter Sandra Keita [facility] Family Medicine [place] Start: 02-14-2022 End: 02-14-2022 ambulatory Sandra Keita Other [facility] Other Start: 02-14-2022 Telephone encounter Sandra Keita [facility] Family Medicine [place] Start: 01-09-2022 (DM) Diabetes Barbera Leonardo [facility] Start: 01-09-2022 End: 01-09-2022 ambulatory Julio Yvonne Other [facility] Other Start: 12-21-2021 ambulatory Teresa Strong Facility:[facility] Start: 12-18-2021 ambulatory Francesca Santos Faci lity:[facility] Start: 12-17-2021 End: 12-17-2021 Emergency department patient visit DO Tray Randle [facility]Emergency Room Start: 12-13-2021 ambulatory Francesca Santos Facilemi ty:[facility] Start: 12-12-2021 End: 12-13-2021 ambulatory SHIRA STEPHEN Facility:[id number] Start: 12-11-2021 End: 12-12-2021 ambulatory SHIRA HAILEE Facility:[id number] Start: 12-09-2021 End: 12-13-2021 Evaluation and management of inpatient DO Tray Randle [facility] [place] [facility] Start: 10-12-2021 End: 10-12-2021 ambulatory Crispin Looney Other [facility] Other Start: 10-12-2021 Patient encounter procedure Crispin Looney [facility] [place] Start: 10-12-2021 Telephone encounter Crispin Looney [facility] [place] Start: 09-13-2021 End: 09-13-2021 ambulatory Crispin Looney Other [facility] Other Start: 09-13-2021 Telephone encounter Crispin Mejias [facility] [place] Start: 08-28-2021 End: 08-28-2021 ambulatory Tondra Mapus Other [facility] Other Start: 08-28-2021 Telephone encounter Tondra Mapus [facility] Start: 07-10-2021 (DM) Diabetes Tondra Mapus [facility] Start: 07-10-2021 End: 07-10-2021 ambulatory Tondra Mapus Other [facility] Other Start: 07-03-2021 End: 07-03-2021 ambulatory Ruben Avendañoracquel Other [facility] Other Start: 07-03-2021 Office outpatient ne w 30 minutes Kamdaja Hahn [facility] Start: 06-28-2021 End: 06-28-2021 ambulatory Crispin Looney Other [facility] Other Start: 06-28-2021 Telephone encounter Crispin Mejias [facility] [place] Start: 05-25-2021 End: 05-25-2021 ambulatory Crispin Looney Other [facility] Other Start: 05-25-2021 Telephone encounter Crispin Mej[facility] [place] Start: 05-08-2021 End: 05-08-2021 ambulatory Crispin Looney Other [facility] Other Start: 05-08-2021 Office outpatient ne w 45 minutes Crispin Looney [facility] [place] Start: 04-11-2021 End: 04-11-2021 ambulatory Tondra Mapus Other [facility] Other Start: 04-11-2021 Telephone encounter Angelique Wynn [facility] Start: 04-03-2021 End: 04-03-2021 ambulatory Tray Brandy Other [facility] Other Start: 04-03-2021 Office outpatient vi sit 15 minutes Tray Nava [facility] Vascular Surgery Start: 03-27-2021 (DM) Diabetes Angelique [facility] Start: 03-27-2021 End: 03-27-2021 ambulatory Tondra Mapus Other [facility] Other Start: 02-27-2021 End: 02-27-2021 ambulatory Tray Brandy Other [facility] Other Start: 02-27-2021 Office outpatient vi sit 15 minutes Tray Nava [facility] Vascular Surgery Start: 05-16-2017 End: 05-16-2017 Ambulatory MATTHEW VOSS Facility:UNKNOWN Start: 01-25-2017 End: 01-26-2017 Ambulatory ELOISA PRETTY Facility:H1 Procedures Date Procedure Procedure Detail Performing Clinician Start: 01-07-2024 Aerobic microbial culture DO [employer] Phone: Start: 01-06-2024 Duplex scan of lower limb veins DO Sandra [employer] Phone: Start: 12-17-2023 MR lumbar spine wo con DO Sandra [employer] Phone: Start: 12-17-2023 XR pre/post mri xray DO Sandra [employer] Phone: Start: 11-11-2023 MRI of head DO Sandra [employer] Phone: Start: 11-10-2023 Urine culture DO Sandra Keita [employer] Phone: Start: 11-10-2023 CT of head without contrast DO Sandra Keita [employer] Phone: Start: 10-30-2023 X-ray of lumbar spin e, six views including bending views DO Sandra Keita [employer] Phone: Start: 09-12-2023 Plain chest X-ray DO Satish Keita [employer] Phone: Start: 07-25-2023 CT of lungs DO Sandra Keita [employer] Phone: Start: 03-05-2023 Dual energy X-ray absorptiometry DO Darrell Corinna Work Phone: Start: 09-05-2022 Screening mammograph y of bilateral breasts DO Sandra Keita [employer] Phone: Start: 08-22-2022 CT of lungs DO Sandra Keita [employer] Phone: Start: 12-17-2021 Computed tomography of abdomen and pelvis with contrast DO Tray Randle Start: 12-12-2021 Diagnostic laparoscopy DO Tray Randle Start: 12-09-2021 US scan of gallbladder DO Tray Randle Start: 12-09-2021 CT of abdomen and pe lvis without contrast DO Tray Randle Start: 06-10-2020 Mammography Darrell Gilbert MD Work Phone: Start: 12-17-2018 Antibody screen Comment on above: Performed By: #### T [id number] #### [place] [address] Blood culture for ba cteria, including anaerobic screen DO Tray Randle SARS Antigen (LFIA) DO Sunni Randle Urine culture DO Tray yates Urine culture DO Tray yates Plan of Treatment Date Care Activity Detail Author Start: 04-07-2024 End: 04-07-2024 Patient encounter procedure 04/07/2024 1:30 PM EST Office Visit [facility] [address] [place] [address] Oz Kincaid MD [address] [facility] [address] [place], [place] [id number] [facility] Start: 02-25-2024 End: 02-25-2024 Patient encounter procedure 02/25/2024 2:15 PM EDT Office Visit [facility] [address] [place] [address] Oz Kincaid MD [address] [address] [place], [place] [phone] [facility] Start: 02-10-2024 End: 02-10-2024 Patient encounter procedure 02/10/2024 2:00 PM EDT Office Visit [facility] [address] [place] [address] Karl Fritz DPM [address] [place] [address] [facility] Start: 01-07-2024 Superficial Wound Culture Supe rficial Wound Culture [facility] Start: 01-06-2024 Duplex scan of lower limb veins US venous duplex LE BI [facility] Start: 01-06-2024 US Lower extremity v ein - bilateral [facility] Start: 12-29-2023 Influenza vaccination Influenz a Vaccine (Season Ended) [facility] Start: 12-02-2023 Blood zinc measurement [facility] Start: 12-02-2023 End: 12-02-2023 [facility] Start: 11-26-2023 Antibody to Scl-70 measurement [facility] Start: 11-26-2023 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 TEACHER antibody measurement [facility] Start: 11-26-2023 [facility] Start: 11-13-2023 End: 11-13-2023 Patient encounter procedure 11/13/2023 2:00 PM EDT Office Visit [address] [place] [phone] Darrell Ch MD [address] [facility] [address] [place], [place] [phone] [facility] Start: 11-12-2023 [facility] Start: 11-11-2023 [facility] Start: 11-10-2023 Bacteria identified in Urine by Culture [facility] Start: 11-10-2023 Referral to neurologist [facility] Start: 11-10-2023 Hospital admission [facility] Start: 11-10-2023 Physical therapy procedure [facility] Start: 11-10-2023 Referral to occupati onal therapist [facility] Start: 11-10-2023 [facility] Start: 11-10-2023 [facility] Start: 11-05-2023 [facility] Start: 10-30-2023 Blood zinc measurement [facility] Start: 10-30-2023 [facility] Start: 10-28-2023 End: 10-06-2025 Cardioversion External Cardioversion External Cardiac Services Routine Typical atrial flutter (Multi) Expected: 10/28/2023 (Approximate), Expires: 10/06/2025 [facility] Service Area Work Phone: Comment on above: Expected: 10/28/2023 (Approximate), Expires: 10/06/2025 Start: 09-14-2023 [facility] Start: 09-12-2023 Referral to registrar assistant [facility] Start: 09-12-2023 Hospital admission [facility] Start: 12-28-2022 COVID-19 Vaccine ( season) COVID-19 Vaccine ( season) [facility] Start: 12-17-2021 Computed tomography of abdomen and pelvis with contrast CT abdomen pelvis w con [facility] Start: 12-17-2021 End: 12-17-2021 Emergency department patient visit Departed Emergency [facility] Start: 12-13-2021 [facility] Work Phone: Start: 12-11-2021 Referral to urologist Magalie dc [facility] Work Phone: Start: 12-11-2021 Referral to general surgeon [facility] Work Phone: Start: 12-09-2021 Hospital admission [facility] Work Phone: Start: 06-10-2021 Screening for malign ant neoplasm of breast Mammogram [facility] Start: 2017 RSV patient s and/or patients aged 60+ years (1 - 1-dose 60+ series) RSV patients and/or patients aged 60+ years (1 - 1-dose 60+ series) [facility] Start: 11-26-2007 Zoster Vaccines (1 of 2) Zoste r Vaccines (1 of 2) [facility] Start: 11-26-1979 DTaP/Tdap/Td Vaccine s (1 - Tdap) DTaP/Tdap/Td Vaccines (1 - Tdap) [facility] Start: 1978 Screening for malign ant neoplasm of cervix [facility] Start: 1976 Urine screening for protein Di abetes: Urine Protein Screening [facility] Start: 11-26-1975 Hepatitis C screening Hepatitis C Sc [facility] Start: 11-26-1967 Diabetic foot examination Diabetes: Foot Exam [facility] Start: 11-26-1967 Glaucoma screening Diabetes: R etinopathy Screening [facility] Start: 11-26-1963 Pneumococcal Vaccine : 65+ Years (1 of 2 - PCV) Pneumococcal Vaccine: 65+ Years (1 of 2 - PCV) [facility] Start: 1958 MMR Vaccines (1 of 1 - Standard series) MMR Vaccines (1 of 1 - Standard series) [facility] Start: 1957 Annual wellness visit Medicare Initial Physical (IPPE) [facility] Start: 1957 Hemoglobin A1c measurement Linsey betes: Hemoglobin A1C [facility] Start: 1957 Lipid panel Lipid Panel [facility] Start: 1957 Screening for malign ant neoplasm of colon [facility] Start: 1957 Screening for osteoporosis Bone Dens ity Scan [facility] Start: 1957 Thyroid stimulating hormone measurement TSH Level [facility] 24 hour urine [facility] Albumin [Mass/volume ] in Serum or Plasma [facility] Albumin/Globulin ratio [facility] Aldolase measurement [facility] Angiotensin converti ng enzyme [Enzymatic activity/volume] in Serum or Plasma [facility] Antibody measurement [facility] Arsenic measurement [facility] Bacteria identified in Unspecified specimen by Aerobe culture [facility] Borrelia burgdorferi Ab [Interpretation] in Serum [facility] Borrelia burgdorferi IgG Ab [Presence] in Serum or Plasma by Immunoassay [facility] Borrelia burgdorferi IgG+IgM Ab [Presence] in Serum by Immunoassay [facility] Borrelia burgdorferi IgM Ab [Presence] in Serum or Plasma by Immunoassay [facility] Centromere protein B Ab [Units/volume] in Serum [facility] Ceruloplasmin [Mass/ volume] in Serum or Plasma [facility] Ceruloplasmin [Mass/ volume] in Serum or Plasma [facility] Complement C3 [Mass/ volume] in Serum or Plasma [facility] Complement C4 [Mass/ volume] in Serum or Plasma [facility] Comprehensive metabo lic 1999 panel - Serum or Plasma [facility] Comprehensive metabo lic 1999 panel - Serum or Plasma [facility] Copper measurement [facility] Cryoglobulin [Presen ce] in Serum [facility] Electrophoresis: [id number] [facility] Electrophoresis: [id number] [facility] Electrophoresis: beta-globulin [facility] Electrophoresis: gaby ma globulin [facility] Globulin [Mass/volum e] in Serum [facility] Glucose measurement estimated from glycated hemoglobin [facility] Hepatitis A virus an tibody, IgM type [facility] Hepatitis B core ant ibody measurement, IgM type [facility] Hepatitis B virus razo rface Ag [Presence] in Serum or Plasma by Immunoassay [facility] Hepatitis C virus Ig G Ab [Presence] in Serum or Plasma by Immunoassay [facility] Hepatitis C virus RN A [log units/volume] (viral load) in Serum or Plasma by TEJINDER with probe detection [facility] Hepatitis C virus RN A [Units/volume] (viral load) in Serum or Plasma by TEJINDER with probe detection [facility] Histone IgG Ab [Units/volume] in Serum by Immunoassay [facility] HIV 1+2 Ab+HIV1 p24 Ag [Presence] in Serum or Plasma by Immunoassay [facility] Homocysteine [Moles/ volume] in Serum or Plasma [facility] Homogenous nuclear A b pattern [Titer] in Serum [facility] Homogenous nuclear A b pattern [Titer] in Serum [facility] IgA [Mass/volume] in Serum or Plasma [facility] IgG [Mass/volume] in Serum or Plasma [facility] IgM [Mass/volume] in Serum or Plasma [facility] Immunofixation for Urine [facility] Sushma-1 extractable nuc lear Ab [Units/volume] in Serum [facility] Lead [Presence] in Blood [facility] Lutropin [Units/volu me] in Serum or Plasma [facility] Measurement of monoc lonal protein concentration [facility] Mercury [Mass/volume ] in Blood [facility] Methylmalonate [Moles/volume] in Serum or Plasma [facility] Mitochondria M2 IgG Ab [Units/volume] in Serum [facility] Myeloperoxidase Ab [Units/volume] in Serum by Immunoassay [facility] Neutrophil cytoplasm ic Ab.classic [Titer] in Serum by Immunofluorescence [facility] Nuclear Ab [Titer] in Serum [facility] Nuclear Ab [Titer] in Serum [facility] P-ANCA measurement [facility] Patient Education [facility] Work Phone: Patient referral [facility] Work Phone: Porphobilinogen [Mass/volume] in Urine [facility] Protein [Mass/volume ] in Serum or Plasma [facility] Protein [Mass/volume ] in Urine [facility] Proteinase 3 Ab [Units/volume] in Serum by Immunoassay [facility] Pyridoxine [Mass/vol ume] in Serum or Plasma [facility] Reagin Ab [Presence] in Serum by RPR [facility] Rheumatoid factor [Units/volume] in Serum or Plasma [facility] Ribosomal P Ab [Units/volume] in Serum [facility] Serum immunofixation [facility] Sjogrens syndrome-A extractable nuclear Ab [Units/volume] in Serum [facility] Sjogrens syndrome-B extractable nuclear Ab [Units/volume] in Serum [facility] Fritz extractable nu clear Ab [Units/volume] in Serum [facility] Thallium [Mass/volum e] in Serum or Plasma [facility] West Nile virus IgG Ab [Presence] in Serum by Immunoassay [facility] [place] Nile virus IgM Ab [Presence] in Serum by Immunoassay [facility] Immunizations Immunization Date Immunization Notes Care Provider Radha pruitt 04-02-2002 measles, mumps and rubella virus vaccine Sandra Keita Other [facility] NEGATED: Highlighted row has not occurred!03-04-2023 Flu Shot - Documentation Purposes Only Sandra Keita Other [facility] Other NEGATED: Highlighted row has not occurred!04-16-2022 influenza, seasonal, injectable Patient Objection Sandra Keita Other [facility] Payers Date Payer Category Payer Medicare [id number] 2023 Private Health Insurance [facility] DUAL [facility]PLE[facility] [id number] 2023-Present [address] [address] [place] [address] [id number]. [id number] 2022 Self-pay [id number] 2022 Medicare [id number] 2022 Medicare [employer] U[employer] DUAL COMPLETE [id number] 2022-Present [address] [place] [address] [id number]. [id number] 2022 Private Health Insurance [id number] 2021 Medicaid [id number]. [id number] 2021 Blue Cross Blue [facility] [id number] 2.16.840.1.389704.19 2017 Unknown [id number] 1959 Medicaid [id number] 1957 Unknown [id number] 2.16.840.1.770643.3.579.2. 727 1957 Unknown [id number] 2.16.840.1.395963.3.579.2. 727 1957 Unknown [id number] 2.16.840.1.687167.3.579.2. 727 1957 Unknown [id number] 2.16.840.1.872180.3.579.2. 727 1957 Unknown [id number] 2.16.840.1.304054.3.579.2. 727 1957 Unknown [id number] 2.16.840.1.060855.3.579.2. 1244 1957 Unknown [id number] 2.16.840.1.400718.3.579.2. 1244 1957 Unknown [id number] 2.16.840.1.791289.3.579.2. 1244 1957 Unknown [id number] 2.16.840.1.669047.3.579.2. 1244 1957 Unknown [id number] 2.16.840.1.067604.3.579.2. 124 1957 Unknown [id number] 2.16.840.1.238810.3.579.2. 1258 1957 Unknown [id number] 2.16.840.1.281806.3.579.2. 1258 1957 Unknown [id number] 2.16.840.1.452379.3.579.2. 1258 1957 Unknown [id number] 2.16840.1.421223.3.579.2. 1258 1957 Unknown [id number] 2.840.1.376629.3.579.2. 1258 1957 Unknown [id number] 2.16840.1.116573.3.579.2. 1258 1957 Unknown [id number] 2.840.1.556317.3.579.2. 1258 1957 Unknown [id number] 2.840.1.780181.3.579.2. 1258 1957 Unknown [id number] 2.840.1.039754.3.579.2. 1258 1957 Unknown [id number] 2.840.1.935020.3.579.2. 1259 Medicare [id number] 2.840.1.298092.19 Unknown [id number] 2.16840.1.468748.3.579.2. 531 Unknown [id number] 2.16840.1.246503.3.579.2. 531 Unknown [id number] 2.16.840.1.521792.3.579.2. 531 Unknown [id number] 2.16.840.1.932904.3.579.2. 531 Unknown [id number] 2.16840.1.585883.3.579.2. 531 Unknown [id number] 2.16840.1.464856.3.579.2. 531 Unknown [id number] 2.16.840.1.824724.3.579.2. 531 Unknown [id number] 2.16.840.1.202050.3.579.2. 531 Unknown [id number] 2.16.840.1.155171.3.579.2. 531 Unknown [id number] 2.16.840.1.579786.3.579.2. 531 Unknown [id number] 2.16.840.1.512114.3.579.2. 531 Unknown [id number] 2.16.840.1.405735.3.579.2. 531 Unknown [id number] 2.16.840.1.983983.3.579.2. 531 Unknown [id number] 2.16.840.1.858755.3.579.2. 531 Social History Date Type Detail Facility Unknown if ever smoked [employer] Other Start: 10-07-2023 End: 01-27-2024 Sex Assigned At [employer] Other Start: 12-17-2021 End: 11-11-2023 Tobacco smoking status [email or web address] Smoker (finding) [facility] Start: 1955 Sex Assigned At Female F [facility] Start: 04-29-1975 End: 10-07-2023 Tobacco smoking status AKIS Smokes tobacco daily [facility] Start: 04-29-1975 History of tobacco use Cigarette Smo ker [facility] Work Phone: Start: 10-07-2023 Tobacco use and exposure Smokeless tobacco non-user [facility] Work Phone: Start: 10-07-2023 End: 01-27-2024 Alcoholic beverage intake Lifetime non-drinker (finding) [facility] Work Phone: Start: 10-07-2023 End: 01-27-2024 History of Social function [facility] Work Phone: Start: 1955 Sex assigned at Not on file [facility] Work Phone: Start: 09-27-2023 End: 10-07-2023 Exposure to SARS-CoV-2 (event) Not sure [facility] Start: 01-29-2023 Tobacco use and exposure User of smokeless tobacco [facility] Start: 01-29-2023 Tobacco Comment Smokes 11-20 c igs per day [facility] Start: 01-09-2023 Alcohol Comment caffeine intak e: occasional [facility] Medical Equipment Procedure Code Equipment Code Equipment Origin al Text Equipment Identifier Dates Start: 07-10-2018 Goals Date Patient Goal Desired Activity /State Functional Status Date Assessment Result Facility 11-12-2023 Functional status Patient at [facility] Work Phone: 09-14-2023 Functional status Patient at [facility] Work Phone: 12-13-2021 Functional status Patient at [facility] Work Phone: Mental Status Date Assessment Result Facility 11-12-2023 Cognitive function Cognitive Sta tus Patient at Baseline [facility] Work Phone: 09-14-2023 Cognitive function Cognitive Sta tus Patient at Baseline [facility] Work Phone: 12-13-2021 Cognitive function Cognitive Sta tus Patient at Baseline [facility] Work Phone: Clinical Notes 02-27-2021 to 01-27-2024 Karl Fritz DPM - 01/27/2024 10:30 AM EDT Note Date & Type Note Facility 01-27-2024 History of Presen t illness Narrative Images from the original note were not included. HPI: Patient presents today complaining of an ulcer on the plantar 1st met right foot. They have noticed this for the past month (10/2023). Patient has pain with walking and standing due to this lesion. Patient has tried [facility] for treatment, x-ray, antibiotic, (not taking d/t WBC count), ultrasound RLE . No other complaints. Exam: General Examination: Foot Exam: 01/07/2024 GENERAL APPEARANCE: awake, aware of surroundings, in no acute distress Vascular: DORSALIS PEDIS PULSE: 2/4, bilaterally POSTERIOR TIBIAL PULSE: 1/4, right TEMPERATURE GRADIENT: warm to cool EDEMA: moderate to the right LE CAPILLARY FILLING TIME(sec): capillary fill intact bilateral digits greater than 3 secs Neurologic: NEUROLOGIC: light touch is intact to the plantar foot Dermatologic: SKIN FINDINGS: evidence of dried callous sub 1st MPJ right. Blood blister to the lateral 5th MPJ and medial 1st MPJ- patient relates that the wrap was too tight across the foot with her shoes. Mostly clear, bloody drainage was noted from the 5th MPJ blister sites, no evidence of infection noted. Blister to the medial 1st MPJ is dry and healed. HYPERKERATOSIS: Location: sub 1st MPJ right NAIL PATHOLOGY: digits 1-5 bilateral are intact SKIN PATHOLOGY: texture, turgor, hair growth, within normal limits Ulcer: LOCATION: sub 1st MPJ right THICKNESS: partial STAGE: limited to breakdown of skin PREVIOUS MEASUREMENT: N/A PRE DEBRIDEMENT SIZE: closed, dried blood callous POST DEBRIDEMENT SIZE: 1cm x 0.6cm x 0.2cm TRACKING: none DRAINAGE: serous MALODOR: none BASE: granular WOUND EDGES: hyperkeratosis SURROUNDING TISSUE: intact, mild erythema, warmth SURROUNDING SOI: none Orthopedic: FOOT MORPHOLOGY: normal JOINT RANGE OF MOTION: normal ROM to the ankle, subtalar joints and 1st MPJ bilateral with no evidence of pain with ROM DEFORMITIES: prominence to the plantar 1st MPJ right PAIN ELICITED WITH PALPATION OF: none MUSCLE STRENGTH: 5/5 for all pedal groups tested Assessments: Ulcer right foot, limited to break down of skin Deformity right foot Cellulitis right foot Treatment Note: 1. Ulcer to the sub 1st MPJ right was evaluated at today's visit. 2. Overlying hyperkeratosis and non-viable tissue was debrided and there is no residal opening noted to the wound following debridement. 3. Instructed patient on continued use of antibiotic cream or moisturizing cream to the area in order to continue to soften the skin and prevent re-opening. 4. Patient advised that they can return to their normal offloading shoe gear as long as no redness, pain develops. 5. RTC: 2 weeks for recheck. Blister right foot: Areas of blister to the right foot were drained with a 15 blade and bloody/serous drainage was removed from the blister. Blister to the sub 1st MPJ is healed. There is dried blood and opening along the 5th MPJ blister. Any non-viable tissue was removed. Patient was instructed on daily dressing changes with antibiotic cream and Band-Aid over the area of the fifth MPJ until this is healed. The prior ulceration site is healed so she does not need to continue with dressing over this area. I encouraged her to continue with a Band-Aid over the sites of blister in order to prevent increased opening. Patient will follow up in 1 week for recheck. documented in this encounter [facility] 11-11-2023 Progress note Note Date/Time November 11, 2023 4:15pm [facility] [address] [place] [address] Hospitalist Progress Note Signed Patient: Kerry Gay MR#: [id number] : 1955 Acct:[id number] Age/Sex: 67 / F Adm Date: 4 Loc: 4N Room: 7N9732-0 Type: ADM IN Attending Dr: Chaka Frye MD Copies to: ~ Date of Service: 11/11/2023 Subjective Subjective Narrative: Patient notes that her weakness has improved mildly when compared to yesterday. She is still having some difficulty with ambulating. She would like to work with physical therapy and additional day before being discharged home. Exam Physical Exam Vital Signs: Temp Pulse Resp BP Pulse Ox O2 Del Method 97.8 F 50 L 17 143/83 H 96 Room Air 11/11/23 07:37 11/11/23 07:37 11/11/23 07:37 11/11/23 07:37 11/11/23 07:37 11/11/23 08:00 Narrative: Constitutional: Middle-aged WF, resting in bed comfortably HEENT: Moist mucous membranes, neck supple Cardiovascular: RRR, no M/R/G, normal S1 and S2, no JVD Respiratory: Lungs clear to auscultation bilaterally, no wheezes, rales or rhonchi GI: Soft, NTND, normoactive bowel sounds : Deferred Neuro: AAO x3, no focal deficits. CN III-XII grossly intact, Strength 5/5 throughout. Extremities: No clubbing, cyanosis or edema Psych: Patient calm, cooperative and conversant Objective Lab Results 11/11/23 05:38 11/11/23 05:38 Microbiology Results Microbiology 11/10/23 05:02 Urine - Clean-Voided Midstream Urine Culture - Preliminary 50,000 colonies/ml mixed bacterial skin contaminants 1 Day Meds Allergies and Active Meds Allergies Sulfa (Sulfonamide Antibiotics) Allergy (Verified 11/09/23 22:07) Vomiting Active Meds: Active Medications Generic Name Dose Route Start Last Admin Trade Name Freq PRN Reason Stop Dose Admin Acetaminophen 650 mg 11/10/23 05:21 Acetaminophen 325 Mg Tablet PO 11/09/24 05:20 Q6HR PRN Pain Scale 1 - 3 or fever Amiodarone HCl 200 mg 11/10/23 09:00 11/11/23 08:44 Amiodarone 200 Mg Tablet PO 11/09/24 08:59 200 mg BID PARMJIT Administration Apixaban 5 mg 11/10/23 09:00 11/11/23 08:44 Apixaban 5 Mg Tablet PO 11/09/24 08:59 5 mg BID PARMJIT Administration Aspirin 81 mg 11/10/23 09:00 11/11/23 08:44 Aspirin 81 Mg Tablet. PO 11/09/24 08:59 81 mg DAILY PARMJIT Administration Empagliflozin 25 mg 11/10/23 09:00 11/11/23 08:44 Empagliflozin 25 Mg Tablet PO 11/09/24 08:59 25 mg DAILY PARMJIT Administration Folic Acid 1 mg 11/10/23 09:00 11/11/23 08:44 Folic Acid 1 Mg Tablet PO 11/09/24 08:59 1 mg DAILY PARMJIT Administration Ceftriaxone Sodium 1 gm in 50 mls @ 100 mls/hr 11/11/23 05:30 11/11/23 05:31 Rocephin IV 100 mls/hr Q24H PARMJIT Administration Magnesium Oxide 400 mg 11/10/23 09:00 11/11/23 08:44 Magnesium Oxide 400 Mg Tablet PO 11/09/24 08:59 400 mg DAILY PARMJIT Administration Melatonin 5 mg 11/10/23 05:21 11/10/23 21:37 Melatonin 5 Mg Tablet PO 11/09/24 05:20 5 mg QHS PRN Administration Insomnia Metoprolol Succinate 50 mg 11/10/23 09:00 11/11/23 14:35 Metoprolol Succinate 50 Mg Tab.Er.24h PO 11/09/24 08:59 Not Given TID PARMJIT Ondansetron HCl 4 mg 11/10/23 05:21 Ondansetron 4 Mg/2 Ml Vial IV-PUSH 11/09/24 05:20 Q8H PRN Nausea And Vomiting Pioglitazone HCl 15 mg 11/10/23 09:00 11/10/23 21:36 Pioglitazone 15 Mg Tablet PO 11/09/24 08:59 15 mg HS PARMJIT Administration Sodium Chloride 0 ml 11/09/23 22:07 Sodium Chloride 0.9 % 10 Ml Syringe IV-PUSH 11/08/24 22:06 PRN PRN Flush A&P - Hospitalist Assessment/Plan (1) Weakness: Plan: ? Patient presents with sudden onset weakness starting Saturday morning, she is currently unable to ambulate even with assistance of a walker secondary to profound weakness and leg shaking. Status post 2 falls at home. ? Recently had a positive PO with her neurologist Dr. Codi oscar ? Recent cardioversion on November 04, no recent medication changes with this ? Checking TSH, it was recently elevated and currently the patient is not on levothyroxine, will plan to initiate levothyroxine therapy if it is still elevated ? Checking folic acid, B12. Her last A1c was 6.6 on October 29 ? Recent CPK was normal, patient does endorse weight loss though this is likely attributed to her Ozempic therapy ? PT OT consulted (2) Hypomagnesemia: (3) Type 2 diabetes mellitus with hyperglycemia: (4) Hypothyroid: (5) Ambulatory dysfunction: Plan Generalized weakness, mostly lower extremity weakness, progressive and worsening Rule out Polymyositis vs Polymylagia Rheumatica Rule out Demyelinating disorder Slightly Elevated TSH, still will need to rule out central vs peripheral hypothyroidism Hx of atrial fibrillation s/p cardioversion earlier this month, on AC Chronic HFrEF Patient is doing better from a physical therapy standpoint. Will plan on home with home health care likely tomorrow. Metabolic workup largely unrevealing. MRI of the brain does not demonstrate evidence of demyelinating lesions. She isplanned for EMG as an outpatient. -PT recommended SNF originally, but patient now doing better from a functional standpoint-would like to be discharged home with home health likely tomorrow -Continue Aspirin 81 g daily -Continue Amiodarone 200 mg BID -Continue metoprolol 50 mg TID (Toprol XL) -Continue with pioglitazone, and if blood glucose is elevated start pt on insulin sliding scale -I discussed the plan with the patient in detail DVT prophylaxis: Already on therapeutic anticoagulation with eliquis GI PPx: No indication Activity: as tolerated and with assistance, PT is on the case Diet: Cardiac diet CODE STATUS: Full code Documented By: Chaka Frye MD 4 [id number] Signed By: <Electronically signed by Chaka Frye MD> 11/11/23 1615 [facility] Work Phone: [phone] 287-286207-15-2024 Consult note Author Lit Clark [facility] November 11, 2023 3:11pm Note Date/Time November 11, 2023 10:4 3am [facility] [address] [place] [address] Neurology Consult Note Signed Patient: Kerry Gay MR#: [id number] : 1955 Acct:[id number] Age/Sex: 67 / F Adm Date: 4 Loc: Room: [address] [place] [address] Type: ADM IN Attending Dr: Chaka Frye MD Copies to: DO Geraldo Garrido MD, RES MD Sandra Mar DO~ HPI Consult Date: 11/11/23 Filter Press Tender Head: Geraldo Vo MD, RES Reason for consult: Progressive generalized weakness Consult Narrative HPI: Kerry Gay is a 67 y.o. female with a PMH of esophageal stricture, cigarette smoker, GERD, HTN, type 2 diabetes mellitus, HLD, CKD stage G2/A2, peripheral neuropathy and vit B12 deficiency who presented to [facility] on 11/10/23 for concerns regarding generalized weakness. Neurology was consulted for evaluation of generalized weakness. Additional HPI is noted in Assessment and Plan. PMFSH Medical History History of esophageal stricture BMI 28.0-28.9,adult Cigarette nicotine dependence GERD (gastroesophageal reflux disease) Obesity Hypertension Diabetes Hyperlipidemia Type 2 diabetes mellitus Chronic kidney disease (CKD) stage G2/A2, mildly decreased glomerular filtrationrate (GFR) between 60-89 mL/min/1.73 square meter and albuminuria creatinine ratio between 30-299 mg/g Peripheral neuropathy Insulin long-term use Dietary counseling and surveillance Vitamin B 12 deficiency Surgical History History of foot surgery History of blepharoplasty History of bilateral cataract extraction Hx of cholecystectomy H/O: hysterectomy Hx of tonsillectomy Family History Father Heart disease History of stroke Legacy FamHx Problem: Diagnosed with Stroke Cancer throat heart disease Mother heart attack Heart disease Hypertension Son Diabetes Sister complications from fall/hit head on sink Brother complications from covid Social History Smoking Status: Current every day smoker Tobacco Type: cigarettes Substance Use Type: None Meds Medications and Allergies Allergies Sulfa (Sulfonamide Antibiotics) Allergy (Verified 11/09/23 22:07) Vomiting Home Medications aspirin 81 mg tablet,delayed release 81 mg PO DAILY 02/09/21 [History Confirmed 11/09/23] empagliflozin 25 mg tablet (Jardiance) 25 mg PO DAILY 02/09/21 [History Confirmed 11/09/23] pioglitazone 15 mg tablet 15 mg PO DAILY 02/09/21 [History Confirmed 11/09/23] semaglutide 0.25 mg or 0.5 mg (2 mg/1.5 mL) subcutaneous pen injector (Ozempic) 1 mg subcut QWEEK 02/09/21 [History Confirmed 11/09/23] simvastatin 20 mg tablet 20 mg PO DAILY 02/09/21 [History Confirmed 11/09/23] docusate sodium 100 mg capsule (Stool Softener) 100 mg PO DAILY 06/12/23 [History Confirmed 11/09/23] insulin glargine U-300 conc 300 unit/mL (1.5 mL) subcutaneous pen (Toujeo SoloStar U-300 Insulin) 20 unit subcut DAILY 06/12/23 [History Confirmed 11/09/23] insulin lispro 100 unit/mL subcutaneous pen See Rx Instructions subcut ACHS 06/12/23 [History Confirmed 11/09/23] multivitamin 1 tab PO DAILY 06/12/23 [History Confirmed 11/09/23] pen needle, diabetic [Sure-Fine Pen [place]] 06/12/23 [History Confirmed 11/09/23] omeprazole 20 mg capsule,delayed release See Rx Instructions .Route .COMPLEX #90caps 07/01/23 [Rx Confirmed 11/09/23] flash glucose sensor (FreeStyle Lida 14 Day Sensor kit) #2 ea 07/22/23 [Rx Confirmed 11/09/23] metformin 500 mg tablet See Rx Instructions .Route .COMPLEX #180 tabs 08/26/23 [Rx Confirmed 11/09/23] apixaban 5 mg tablet (Eliquis) 5 mg PO BID #60 tabs 09/14/23 [Rx Confirmed 11/09/23] magnesium oxide 400 mg (241.3 mg magnesium) tablet (MagOx) 400 mg PO DAILY #30 tabs 09/14/23 [Rx Confirmed 11/09/23] miscellaneous medical supply #1 ea 09/30/23 [Rx Confirmed 11/09/23] folic acid 1 mg tablet 1 mg PO DAILY 90 days #90 tabs 10/16/23 [Rx Confirmed 11/09/23] nortriptyline 50 mg capsule 100 mg (2 x 50 mg) PO DAILY 90 days #180 caps 10/16/23 [Rx Confirmed 11/09/23] amiodarone 200 mg tablet 200 mg PO BID 11/04/23 [History Confirmed 11/09/23] metoprolol succinate 50 mg tablet,extended release 24 hr 50 mg PO TID 11/04/23 [History Confirmed 11/09/23] temazepam 30 mg capsule 30 mg PO DAILY 30 days #30 caps 11/08/23 [Rx Confirmed 11/09/23] Exam Physical Exam Vital Signs: Temp Pulse Resp BP Pulse Ox O2 Del Method 97.8 F 50 L 17 143/83 H 96 Room Air 11/11/23 07:37 11/11/23 07:37 11/11/23 07:37 11/11/23 07:37 11/11/23 07:37 11/11/23 08:00 Narrative: Physical Exam is noted in Assessment and Plan Results - Neuro Laboratory Findings 11/11/23 05:38 11/11/23 05:38 Lab Results: ESR 40 mm/hr (0-29) H 11/10/23 03:41 Diagnostic Findings Imaging/Impressions: ITS Impressions Head CT 11/10/23 12:01 IMPRESSION: No acute intrapelvic pathology. Mild age-related neurodegenerative changes are noted as above. Impression dictated by: Oz Bowling M.D.11/10/2023 1:15 PM Dictation Location: [facility] Therapy Recommendations Therapy Recommendations: OT Recommendations OT Recommended Discharge Long-Term Facility Location OT Recommended Services at Physical Therapy,Occupational Therapy Discharge PT Recommendations PT Recommended Discharge Long-Term Facility Location PT Recommended Services at Physical Therapy,Occupational Therapy Discharge Assessment/Plan (1) Ambulatory dysfunction: (2) Weakness: (3) Hypothyroid: Qualifiers: Hypothyroidism type: unspecified Qualified Code(s): E03.9 - Hypothyroidism, unspecified (4) Hypomagnesemia: (5) Type 2 diabetes mellitus with hyperglycemia: Qualifiers: Diabetes mellitus senior care insulin use: unspecified senior care insulin use status Qualified Code(s): E11.65 - Type 2 diabetes mellitus with hyperglycemia (6) Vitamin B 12 deficiency: Plan CONSULT REASON: Generalized weakness HPI: Kerry Gay is a 67 y.o. female with a PMH of esophageal stricture, cigarette smoker, GERD, HTN, type 2 diabetes mellitus, HLD, CKD stage G2/A2, peripheral neuropathy and vit B12 deficiency who presented to [facility] on 11/10/23 for concerns regarding generalized weakness. Neurology was consulted for evaluation of generalized weakness. Patient was seen and evaluatedat bedside. She states that she noticed her weakness worsening on Saturday or Saturday (2-3 days ago). She mentions having weakness present for several years with a history of falls. Patient recently started physical therapy within the last few weeks and began using a walker for stability at home. At baseline she walks slowly and notes that she has felt my muscles were getting smaller. She reports that Saturday morning when she tried to stand up her leg started shakingintensely and she was unable to stand. She mentions falling two times at home before coming to the hospital. Denies hitting her head. Patient saw a neurologist in early October and received a lab workup. Per previous history provided by daughter, the tests were positive for PO, the majority of the testswere negative, but the daughter mentioned that they were not able to finish running all of the blood tests because they did not receive enough blood samples. TSH was also found to be elevated although she was not taking any thyroid medications. There have been no changes to her medication regimen. Her most recent change was from Lyrica which was started approximately 1 month ago. Today patient states that she is doing ok. She still feels generalized weakness, most prominent in her legs. She mentions baseline neuropathy related to diabetes mellitus and has decreased sensation in her bilateral feet. She complains of dizziness when she stands up from a chair and begins walking. Denies headache, chest pain, shortness of breath, nausea, vomiting, diarrhea, orconstipation. She is here for further evaluation. EXAMINATION: In no distress. No deformities or trauma. Limbs seem well-perfused. No significant edema. Normal work of breathing. Visualized skin is generally intact and without lesions. Affect normal. Patient is alert. Attention normal. Speech is fluent and nondysarthric. Pupils are equal and reactive. Ocular motility is full. No nystagmus. Facial sensation is normal. Hearing isnormal. Facial strength is normal. Tongue is midline. Muscle bulk, tone, and strength are normal. No tremors. Reflexes normal throughout. Light touch is decreased in bilateral lower extremities in the feet. Vibratory sensation is intact. No limb dysmetria or ataxia. CN II-XII grossly intact. DATA REVIEW: - EKG 11/09/23 sinus bradycardia - Head CT 11/10/23 no acute intracranial pathology. Mild age related neurodegenerative changes - B12 11/10/23 306 - Hemoglobin A1c 6.6 - Brain MRI -no acute intracranial pathology ASSESSMENT: Patient is stable and resting comfortably in bed. She does not demonstrate any gross cranial nerve deficiencies. Light touch is decreased in bilateral lower extremities, but strength is mostly preserved. I am concerned for physical deconditioning and think the patient would benefit from physical therapy. We will get an updated MRI of the brain to further evaluate sources of weakness. PLAN: - Continue medication management per primary team - Monitor for signs of worsening weakness - PT/OT Geraldo Vo MD PGY-2, Family Medicine Attending note: I saw the patient in new patient neurology consultation today. The patient had weakness and tremors activity of the lower extremities. The patient states thishas been quite longstanding and been going on for many years. There was an episode of a few days where this seem to be progressively worse. The patient noted she may have had a urinary tract infection at that time. She feels betternow. We did obtain an MRI of the brain to ensure there is no acute intracranialpathology responsible for symptoms. MRI is unremarkable. Patient is feeling better. She is being assessed by physical and Occupational Therapy. She does have a known history of severe degenerative disc disease of the lumbar spine seen on x-ray within the last year. She does follow with outpatient neurology, Dr. Oz Kincaid and is scheduled to have an EMG with him. I do suspect that a combination of peripheral polyneuropathy secondary to diabetes versus alternative causes and degenerative disc disease of the lumbar spine are causative for the patient's overall lower extremity weakness. I suggest ongoing care with outpatient neurology. I suggest outpatient EMG and MRI of the lumbar spine. I suggest aggressive physical and occupational therapy. I believe the patient is stable from a neurological perspective for discharge and can follow in the outpatient setting. Neurology will sign off. Please call with any questions or concerns. I have personally seen and examined the patient on rounds today. I was present for the jordan parts of clinical decision making. I agree with the Resident's noteother than as stated by me. Documented By: Lit Clark DO 4 [id number] Signed By: <Electronically signed by Lit Clark DO> 11/11/23 1511 <Electronically signed by MD GAGE Vo> 11/11/23 1043 [facility] Work Phone: [phone]) 133-114707-14-2024 Progress note Author Kirt Renae [facility] November 10, 2023 12:24pm Note Date/Time November 10, 2023 12:0 0pm [facility] [address] [place] [address] Hospitalist Progress Note Signed Patient: Kerry Gay MR#: [id number] : 1955 Acct:[id number] Age/Sex: 67 / F Adm Date: 4 Loc: 4N Room: 7A4691-7 Type: ADM IN Attending Dr: Kirt Renae MD Copies to: ~ Date of Service: 11/10/2023 Subjective Subjective Narrative: PT seen and examined at bedside, she was just finished with physical therapy, and when I tried to have her stand up and walk, she was very weak, had to hold my hands and to hold on the chair. She was shaky. I spoke to her about her current illness, she states that she has been having progressive slowing in her walking for the last few months, but yesterday it got worse. She denies any change in urinary or bowel habits. She denies any back pain. She also states that her weakness involves her upper extremities, she has not been on statins when I asked her, she denies any headache or visual symptoms. Her TSH is only 5.6, CPK is normal. Today, PT/OT assessed pt and recommended SNF placement Exam Physical Exam Vital Signs: Temp Pulse Resp BP Pulse Ox O2 Del Method 98.1 F 62 18 144/67 H 100 Room Air 11/10/23 03:44 11/10/23 05:05 11/10/23 05:05 11/10/23 05:05 11/10/23 05:05 11/10/23 05:05 Narrative: General: ALert and awake, oriented x3, not in acute distress but weak, she was sitting in the chair, very pleasant and cooperative HEENT: no lymphadenopathy, no thyromegaly, atruamatic, normocephalic Chest; Good bilateral air entry, no wheezes or crackles Skin: No dermatophytic changes, no rash or tight skin over nails CVS: Normal S1 and S2, no murmurs, no abnormal heart sounds Abdomen: Soft, non tender, no organomegaly, positive Bowel sounds Extremities: No lower extremity swelling, normal peripheral pulses (intact bilaterally), no spine tenderness, reflexes were normal, no cerebellar signs on exam Objective Lab Results 11/10/23 03:41 11/10/23 04:10 Meds Allergies and Active Meds Allergies Sulfa (Sulfonamide Antibiotics) Allergy (Verified 11/09/23 22:07) Vomiting Active Meds: Active Medications Generic Name Dose Route Start Last Admin Trade Name Freq PRN Reason Stop Dose Admin Acetaminophen 650 mg 11/10/23 05:21 Acetaminophen 325 Mg Tablet PO 11/09/24 05:20 Q6HR PRN Pain Scale 1 - 3 or fever Amiodarone HCl 200 mg 11/10/23 09:00 11/10/23 08:44 Amiodarone 200 Mg Tablet PO 11/09/24 08:59 200 mg BID PARMJIT Administration Apixaban 5 mg 11/10/23 09:00 11/10/23 08:44 Apixaban 5 Mg Tablet PO 11/09/24 08:59 5 mg BID PARMJIT Administration Aspirin 81 mg 11/10/23 09:00 11/10/23 08:45 Aspirin 81 Mg Tablet. PO 11/09/24 08:59 81 mg DAILY PARMJIT Administration Empagliflozin 25 mg 11/10/23 09:00 11/10/23 08:44 Empagliflozin 25 Mg Tablet PO 11/09/24 08:59 25 mg DAILY PARMJIT Administration Folic Acid 1 mg 11/10/23 09:00 11/10/23 08:45 Folic Acid 1 Mg Tablet PO 11/09/24 08:59 1 mg DAILY PARMJIT Administration Ceftriaxone Sodium 1 gm in 50 mls @ 100 mls/hr 11/11/23 05:30 Rocephin IV Q24H PARMJIT Magnesium Oxide 400 mg 11/10/23 09:00 11/10/23 08:44 Magnesium Oxide 400 Mg Tablet PO 11/09/24 08:59 400 mg DAILY PARMJIT Administration Melatonin 5 mg 11/10/23 05:21 Melatonin 5 Mg Tablet PO 11/09/24 05:20 QHS PRN Insomnia Metoprolol Succinate 50 mg 11/10/23 09:00 11/10/23 08:44 Metoprolol Succinate 50 Mg Tab.Er.24h PO 11/09/24 08:59 50 mg TID PARMJIT Administration Ondansetron HCl 4 mg 11/10/23 05:21 Ondansetron 4 Mg/2 Ml Vial IV-PUSH 11/09/24 05:20 Q8H PRN Nausea And Vomiting Pioglitazone HCl 15 mg 11/10/23 09:00 11/10/23 08:45 Pioglitazone 15 Mg Tablet PO 11/09/24 08:59 15 mg HS PARMJIT Administration Sodium Chloride 0 ml 11/09/23 22:07 Sodium Chloride 0.9 % 10 Ml Syringe IV-PUSH 11/08/24 22:06 PRN PRN Flush A&P - Hospitalist Assessment/Plan (1) Weakness: Plan: ? Patient presents with sudden onset weakness starting Saturday morning, she is currently unable to ambulate even with assistance of a walker secondary to profound weakness and leg shaking. Status post 2 falls at home. ? Recently had a positive PO with her neurologist Dr. Codi oscar ? Recent cardioversion on November 04, no recent medication changes with this ? Checking TSH, it was recently elevated and currently the patient is not on levothyroxine, will plan to initiate levothyroxine therapy if it is still elevated ? Checking folic acid, B12. Her last A1c was 6.6 on October 29 ? Recent CPK was normal, patient does endorse weight loss though this is likely attributed to her Ozempic therapy ? PT OT consulted (2) Hypomagnesemia: Plan: 1.6 on admission, replenish as necessary (3) Type 2 diabetes mellitus with hyperglycemia: Plan: ? Continue home medications and add sliding scale insulin if needed (4) Hypothyroid: Plan: See above (5) Ambulatory dysfunction: Plan: See above Plan Generalized weakness, mostly lower extremity weakness, progressive and worsening Rule out Polymyositis vs Polymylagia rheumatica Rule out Demyelinating disorder Slightly elevated TSH, still will need to rule out central vs peripheral hypothyroidism Rule out Polymyalgia rheumatica Recent history of positive PO hx of atrial fibrillation s/p cardioversion earlier this month, on AC -Obtain Free T4 and T3, and anti-TPO antibodies -Obtain ESR and CRP -Obtain anti Sushma, Anti 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 TEACHER, anti dsDNA -Obtain CT head without contrast today, if non revealing will obtain MRI brain without contrast and MRI total spine -PT recommended SNF, will continue to follow with PT -Obtained neuro consult -Obtain TTE to rule pulmonary HTN that could be indicated of a rheumatologic disorder -Continue Aspirin 81 g daily -Continue Amiodarone 200 mg BID -Continue metoprolol 50 mg TID (Toprol XL) -Continue with pioglitazone, and if blood glucose is elevated start pt on insulin sliding scale -I discussed the plan with the patient in details. DVT prophylaxis: Already on therapeutic anticoagulation with eliquis GI PPx: No indication Activity as tolerated and with assistance, PT is on the case Cardiac diet Full code Documented By: Kirt Renae MD 11/10/23 [id number] Signed By: <Electronically signed by Kirt Renae MD> 11/10/23 1226 [facility] Work Phone: 1(709) 386-290607-14-2024 History and physical note Author Jluis Campos [facility] November 10, 2023 6:20am Note Date/Time November 10, 2023 6:11 am [facility] [address] [place] [address] Hospitalist H&P Signed Patient: Kerry Gay MR#: [id number] : 1955 Acct:[id number] Age/Sex: 67 / F Adm Date: 4 Loc: 4N Room: [id number] Type: ADM IN Attending Dr: Jluis Campos DO Copies to: Sandra Keita, DO Jluis Campos, DO~ HPI DATE OF EXAMINATION: 11/10/23 CHIEF COMPLAINT: weakness HISTORY OF PRESENT ILLNESS: Miss Gay is a 67-year-old female with a past medical history of GERD, hypertension, hyperlipidemia, atrial fibrillation status post cardioversion, peripheral neuropathy, and vitamin B12 efficiency who presents to hospital due to chief complaint of sudden onset extreme weakness at home leg shaking. The patient is present with her daughter, states that starting Saturday the patient began experiencing sudden onset weakness while ambulating with her walker, at baseline she did start his walker and she does walk slowly, she states she had been feeling weak for quite a while and noticed that she felt that her muscles were getting smaller and suddenly Saturday when she tried to stand up her leg started shaking severely and she was unable to stand, she had 2 falls at home. She denies hitting her head. She did see a neurologist for this I believe she said the date was October 29, a battery of tests were performed including PO which was positive, and it appears that a majority of the test were negative, the daughter in the room says that the lab was not able to able to finish running all of the blood test because they did not receive enough blood samples. She did note that the TSH was elevated on October 29,she is currently not taking any supplementation for that. Patient denies any new medications, most recently was Lyrica this started almost a month ago, she has been stable on her other medications for a a while now. There is also a small degree of concern for stroke status post cardioversion. Review of Systems Review of Systems All other systems reviewed & are negative unless noted below or in HPI [facility] Medical History History of esophageal stricture BMI 28.0-28.9,adult Cigarette nicotine dependence GERD (gastroesophageal reflux disease) Obesity Hypertension Diabetes Hyperlipidemia Type 2 diabetes mellitus Chronic kidney disease (CKD) stage G2/A2, mildly decreased glomerular filtrationrate (GFR) between 60-89 mL/min/1.73 square meter and albuminuria creatinine ratio between 30-299 mg/g Peripheral neuropathy Insulin long-term use Dietary counseling and surveillance Vitamin B 12 deficiency Surgical History History of foot surgery History of blepharoplasty History of bilateral cataract extraction Hx of cholecystectomy H/O: hysterectomy Hx of tonsillectomy Family History Father Heart disease History of stroke Legacy FamHx Problem: Diagnosed with Stroke Cancer throat heart disease Mother heart attack Heart disease Hypertension Son Diabetes Sister complications from fall/hit head on sink Brother complications from covid Social History Smoking Status: Current every day smoker Tobacco Type: cigarettes Substance Use Type: None Meds Medications and Allergies Allergies Sulfa (Sulfonamide Antibiotics) Allergy (Verified 11/09/23 22:07) Vomiting Home Medications aspirin 81 mg tablet,delayed release 81 mg PO DAILY 02/09/21 [History Confirmed 11/09/23] empagliflozin 25 mg tablet (Jardiance) 25 mg PO DAILY 02/09/21 [History Confirmed 11/09/23] pioglitazone 15 mg tablet 15 mg PO DAILY 02/09/21 [History Confirmed 11/09/23] semaglutide 0.25 mg or 0.5 mg (2 mg/1.5 mL) subcutaneous pen injector (Ozempic) 1 mg subcut QWEEK 02/09/21 [History Confirmed 11/09/23] simvastatin 20 mg tablet 20 mg PO DAILY 02/09/21 [History Confirmed 11/09/23] docusate sodium 100 mg capsule (Stool Softener) 100 mg PO DAILY 06/12/23 [History Confirmed 11/09/23] insulin glargine U-300 conc 300 unit/mL (1.5 mL) subcutaneous pen (Totello SoloStar U-300 Insulin) 20 unit subcut DAILY 06/12/23 [History Confirmed 11/09/23] insulin lispro 100 unit/mL subcutaneous pen See Rx Instructions subcut ACHS 06/12/23 [History Confirmed 11/09/23] multivitamin 1 tab PO DAILY 06/12/23 [History Confirmed 11/09/23] pen needle, diabetic [Sure-Fine Pen [place]] 06/12/23 [History Confirmed 11/09/23] omeprazole 20 mg capsule,delayed release See Rx Instructions .Route .COMPLEX #90caps 07/01/23 [Rx Confirmed 11/09/23] flash glucose sensor (FreeStyle [place] 14 Day Sensor kit) #2 ea 07/22/23 [Rx Confirmed 11/09/23] metformin 500 mg tablet See Rx Instructions .Route .COMPLEX #180 tabs 08/26/23 [Rx Confirmed 11/09/23] apixaban 5 mg tablet (Eliquis) 5 mg PO BID #60 tabs 09/14/23 [Rx Confirmed 11/09/23] magnesium oxide 400 mg (241.3 mg magnesium) tablet (MagOx) 400 mg PO DAILY #30 tabs 09/14/23 [Rx Confirmed 11/09/23] miscellaneous medical supply #1 ea 09/30/23 [Rx Confirmed 11/09/23] folic acid 1 mg tablet 1 mg PO DAILY 90 days #90 tabs 10/16/23 [Rx Confirmed 11/09/23] nortriptyline 50 mg capsule 100 mg (2 x 50 mg) PO DAILY 90 days #180 caps 10/16/23 [Rx Confirmed 11/09/23] amiodarone 200 mg tablet 200 mg PO BID 11/04/23 [History Confirmed 11/09/23] metoprolol succinate 50 mg tablet,extended release 24 hr 50 mg PO TID 11/04/23 [History Confirmed 11/09/23] temazepam 30 mg capsule 30 mg PO DAILY 30 days #30 caps 11/08/23 [Rx Confirmed 11/09/23] Exam Physical Exam Vital Signs: Temp Pulse Resp BP Pulse Ox O2 Del Method 98.1 F 62 18 144/67 H 100 Room Air 11/10/23 03:44 11/10/23 05:05 11/10/23 05:05 11/10/23 05:05 11/10/23 05:05 11/10/23 05:05 Narrative: General: Awake alert, no acute distress HEENT: head atraumatic, normocephalic, moist mucous membranes Neck: supple no masses, no lymphadenopathy CVS: regular rate and rhythm, no murmurs or gallops Respiratory: clear to auscultation bilaterally, no wheezing or crackles, symmetric expansion GI: soft, nondistended, nontender, positive bowel sounds with no organomegaly Extremity: moves all extremities, no restrictions of movements, no focal weaknesses were noted, patient unable to ambulate. [id number] test was normal. No tremors or ataxia with [id number]-[id number] movements. Neuro: AOx3, CN II-VII intact. Moves all extremities in all planes of motion. Skin: dry, intact no rashes or lesions Results - Hospitalist H&P Lab Results Labs: Laboratory Last Values Corrected WBC 8.5 X10E3/uL (3.8-11.6) 11/10/23 03:41 Uncorrected WBC Count 8.5 x10E3/uL (3.8-11.6) 11/10/23 03:41 RBC 4.59 X10E6/uL (3.60-5.00) 11/10/23 03:41 Hgb 15.0 g/dL (11.8-15.4) 11/10/23 03:41 Hct 44.9 % (34.0-46.4) 11/10/23 03:41 MCV 97.8 fl (80-100) 11/10/23 03:41 MCH 32.6 pg (24.7-34.3) 11/10/23 03:41 MCHC 33.3 g/dL (32.0-35.0) 11/10/23 03:41 RDW 13.5 % (11.9-15.3) 11/10/23 03:41 Plt Count 149 x10E3/uL (150-450) L 11/10/23 03:41 MPV 8.7 fl (6.3-10.7) 11/10/23 03:41 Neut % (Auto) 61.2 % (.) 11/10/23 03:41 Lymph % (Auto) 26.0 % (.) 11/10/23 03:41 [place] % (Auto) 8.2 % (.) 11/10/23 03:41 Eos % (Auto) 3.7 % (.) 11/10/23 03:41 Baso % (Auto) 0.9 % (.) 11/10/23 03:41 Nucleat RBC Rel Count 0.1 /100 WBC (0-0.5) 11/10/23 03:41 Neut # (Auto) 5.2 x10E3/uL (1.8-7.7) 11/10/23 03:41 Lymph # (Auto) 2.2 x10E3/uL (1.00-4.8) 11/10/23 03:41 [place] # (Auto) 0.7 x10E3/uL (0.0-0.8) 11/10/23 03:41 Eos # (Auto) 0.3 x10E3/uL (0.0-0.45) 11/10/23 03:41 Baso # (Auto) 0.1 x10E3/uL (0.0-0.2) 11/10/23 03:41 Monocyte Dist Width 19.74 % (0.00-20.00) 11/10/23 03:41 PHA Creatinine Clear 66.28 11/10/23 04:10 Sodium 137 mmol/L (136-145) 11/10/23 04:10 Potassium 4.6 mmol/L (3.5-5.1) 11/10/23 04:10 Chloride 105 mmol/L (98-107) 11/10/23 04:10 Carbon Dioxide 25.4 mmol/L (21.0-31.0) 11/10/23 04:10 Anion Gap 11.2 mEq/L (6.0-15.0) 11/10/23 04:10 BUN 14 mg/dL (7-25) 11/10/23 04:10 Creatinine 0.93 mg/dL (0.60-1.20) 11/10/23 04:10 Est GFR (CKD-EPI) > 60.0 mL/Min 11/10/23 04:10 Glucose 95 mg/dL (70-100) 11/10/23 04:10 POC Glucose 139 mg/dl 11/09/23 22:17 Calcium 9.6 mg/dL (8.6-10.3) 11/10/23 04:10 Magnesium 1.7 mg/dL (1.9-2.7) L 11/10/23 04:10 Total Bilirubin 0.4 mg/dl (0.3-1.0) 11/10/23 04:10 AST 29 U/L (13-39) 11/10/23 04:10 ALT 19 U/L (7-52) 11/10/23 04:10 Alkaline Phosphatase 60 U/L (34-104) 11/10/23 04:10 Total Creatine Kinase 69 U/L (30-223) 11/10/23 04:10 Total Protein 7.1 gm/dL (6.4-8.9) 11/10/23 04:10 Albumin 4.2 gm/dL (3.5-5.7) 11/10/23 04:10 Globulin 2.9 gm/dL 11/10/23 04:10 Albumin/Globulin Ratio 1.4 11/10/23 04:10 Urine Color Light-yellow (Yellow) 11/10/23 05:02 Urine Appearance Clear (Clear) 11/10/23 05:02 Urine pH 6.0 (5.0-9.0) 11/10/23 05:02 Ur Specific [place] 1.007 (1.001-1.030) 11/10/23 05:02 Urine Protein Negative mg/dL (Negative) 11/10/23 05:02 Urine Glucose (UA) 1000 mg/dL (Normal) H 11/10/23 05:02 Urine Ketones Negative (Negative) 11/10/23 05:02 Urine Occult Blood Negative (Negative) 11/10/23 05:02 Urine Nitrite Negative (Negative) 11/10/23 05:02 Urine Bilirubin Negative (Negative) 11/10/23 05:02 Urine Urobilinogen Normal mg/dL (Normal) 11/10/23 05:02 Ur Leukocyte Esterase 4+ (Negative) H 11/10/23 05:02 Urine RBC 5-9 /HPF (0-4) H 11/10/23 05:02 Urine WBC 20-49 /HPF (0-4) H 11/10/23 05:02 Urine WBC Clumps Occasional /LPF (None Seen) H 11/10/23 05:02 Ur Squamous Epith Cells 5-9 /HPF (0-2) H 11/10/23 05:02 Urine Bacteria 1+ /HPF (None Seen) H 11/10/23 05:02 Hyaline Casts None /LPF (0-8) 11/10/23 05:02 Assessment & Plan Assessment/Plan (1) Weakness: Plan: ? Patient presents with sudden onset weakness starting Saturday morning, she is currently unable to ambulate even with assistance of a walker secondary to profound weakness and leg shaking. Status post 2 falls at home. ? Recently had a positive PO with her neurologist Dr. Kincaid adenomas ? Recent cardioversion on November 04, no recent medication changes with this ? Checking TSH, it was recently elevated and currently the patient is not on levothyroxine, will plan to initiate levothyroxine therapy if it is still elevated ? Checking folic acid, B12. Her last A1c was 6.6 on October 29 ? Recent CPK was normal, patient does endorse weight loss though this is likely attributed to her Ozempic therapy ? PT OT consulted (2) Hypomagnesemia: Plan: 1.6 on admission, replenish as necessary (3) Type 2 diabetes mellitus with hyperglycemia: Plan: ? Continue home medications and add sliding scale insulin if needed (4) Hypothyroid: Plan: See above (5) Ambulatory dysfunction: Plan: See above Plan ? DVT prophylaxis addressed ? Regular diet ? Full code IP vs OBS Justification Based on differential dx, clinical care plan, and risk of adverse events, if untreated, in my clinical judgement this patient requires an acute care setting as: INPATIENT because of an expectation of an over 2 midnight stay. Estimated length of stay (# of days): 3 Documented By: Jluis Campos DO 11/10/23 0607 Signed By: <Electronically signed by Jluis Campos DO> 11/10/23 0620 [facility] Work Phone: [phone]) 473-742107-09-2024 [facility] History of Present illness Narrative* Darrell Ch MD - 10/07/2023 9:40 AM EDT Subjective Kerry Gay is a 67 y.o. female Chief Complaint Hospital Follow-up HPI Review of Systems All other systems reviewed and are negative. Patient is seen in follow-up of recent hospital consultation for new onset atrial flutter. She is still out of rhythm based on exam. This is not surprising to her or her daughter who is with her. We discussed management. Her initial implementation of therapy was anticoagulation with rate control and now are Tempel be to restore and maintain rhythm. We discussed antiarrhythmic pharmacologic options. There is only 1 because her ejection fraction is35 to 40% hence we will use amiodarone in an effort to restore and maintain rhythm. After doing so may be consider switching to a different agent in the future. The reason and the rationale for the plan of care including amiodarone as the antiarrhythmic of choice and continued Eliquis therapy were explained and they agreed to proceed as noted. We will schedule cardioversion on the assumption that she does not convert spontaneously. An office visit about a week after cardioversion for me to make adjustments and amiodarone before my halfway. Vitals: 10/07/23 0948 BP: 114/90 BP Location: Left arm Patient Position: Sitting Pulse: 92 Weight: 81.6 kg (180 lb) Height: 1.702 m (5' 7 ) Objective Physical Exam Constitutional: Appearance: Normal appearance. HENT: Nose: Nose normal. Neck: Vascular: No carotid bruit. Cardiovascular: Rate and Rhythm: Normal rate. Pulses: Normal pulses. Heart sounds: Normal heart sounds. Pulmonary: Effort: Pulmonary effort is normal. Abdominal: General: Bowel sounds are normal. Palpations: Abdomen is soft. Musculoskeletal: General: Normal range of motion. Cervical back: Normal range of motion. Right lower leg: No edema. Left lower leg: No edema. Skin: General: Skin is warm and dry. Neurological: General: No focal deficit present. Mental Status: She is alert. Psychiatric: Mood and Affect: Mood normal. Behavior: Behavior normal. Thought Content: Thought content normal. Judgment: Judgment normal. Allergies Sulfa (sulfonamide antibiotics) Current Medications Current Outpatient Medications: apixaban (Eliquis) 5 mg tablet, Take 1 tablet (5 mg) by mouth 2 times a day., Disp: , Rfl: aspirin 81 mg EC tablet, Take 1 tablet (81 mg) by mouth once daily., Disp: , Rfl: docusate sodium (Colace) 100 mg capsule, Take 1 capsule (100 mg) by mouth 2 times a day., Disp: , Rfl: empagliflozin (Jardiance) 25 mg, Take 1 tablet (25 mg) by mouth once daily., Disp: , Rfl: metFORMIN (Glucophage) 500 mg tablet, Take 1 tablet (500 mg) by mouth 2 times daily (morning and late afternoon)., Disp: , Rfl: metoprolol succinate XL (Toprol-XL) 50 mg 24 hr tablet, Take 1 tablet (50 mg) by mouth once daily. Do not crush or chew., Disp: , Rfl: nortriptyline (Pamelor) 50 mg capsule, Take 2 capsules (100 mg) by mouth once daily at bedtime., Disp: , Rfl: omeprazole (PriLOSEC) [address] capsule, Take 1 capsule (20 mg) by mouth once daily in the morning. Take before meals., Disp: , Rfl: pioglitazone (Actos) 15 mg tablet, Take 1 tablet (15 mg) by mouth once daily., Disp: , Rfl: semaglutide (Ozempic) 1 mg/dose (4 mg/3 mL) pen injector, Administer 1mg subcutaneously once weekly, Disp: , Rfl: simvastatin (Zocor) 20 mg tablet, Take 1 tablet (20 mg) by mouth once daily at bedtime., Disp: , Rfl: temazepam (Restoril) 30 mg capsule, Take 1 capsule (30 mg) by mouth 1 time., Disp: , Rfl: Assessment/Plan 1. Typical atrial flutter (Multi) Patient has adequate rate control probably 3-1 conduction. 2. Nonischemic cardiomyopathy (Multi) Brought about by probably unrecognized weeks or months of atrial flutter with rapid ventricular response 3. Hypertension, unspecified type Adequate control achieved 4. Hypercholesteremia Adequate control based upon review 5. Smoker Encouraged to stop smoking 6. Type 2 diabetes mellitus with other specified complication, unspecified whether senior care insulin use (Multi) Managed by other providers 7. BMI 28.0-28.9,adult The merits of diet and weight loss were advocated Scribe Attestation By signing my name below, I, Ernesto Carrizales LPN attest that this documentation has been prepared under the direction and in the presence of Soto Ch MD. Provider Attestation - Scribe documentation All medical record entries made by the Scribe were at my direction and personally dictated by me. Ihave reviewed the chart and agree that the record accurately reflects my personal performance of the history, physical exam, discussion and plan. documented [facility] Work Phone: 1(261) 441-608106-10-2024 Instructions* Patient Instructions* Cary Mcdonnell RN - 10/07/2023 9:40 AM EDT Please bring all medicines, vitamins, and herbal supplements with you when you come to the office. Prescriptions will not be filled unless you are compliant with your follow up appointments or have a follow up appointment scheduled as per instruction of your physician. Refills should be requested at the time of your visit. Fall Prevention Education Given documented in [facility] encounterBl[facility] Work Phone: 1(205) 559-619205-18-2024 Progress note Author Faraz Gilliam [facility] September 14, 2023 1:34pm Note Date/Time September 14, 2023 1:26p [facility] [address] [place] [address] Cardiology Progress Note Signed Patient: Kerry Gay MR#: [id number] : 1955 Acct:[id number] Age/Sex: 67 / F Adm Date: 4 Loc: Room: [address] [place] [address] Type: ADM IN Attending Dr: Elva Florian MD Copies to: ~ Date of Service: 09/14/2023 Subjective Principal diagnosis: AFluter Interval history: No complaints. HR is well controlled after medication changes made yesterday. Exam Physical Exam Vital Signs: Temp Pulse Resp BP Pulse Ox O2 Del Method 97.5 F L 65 16 113/71 96 Room Air 09/14/23 07:42 09/14/23 07:42 09/14/23 07:42 09/14/23 07:42 09/14/23 07:42 09/14/23 08:00 Narrative: Physical Exam: General: NAD, A&Ox3, Cooperative Head, Eyes: NC/AT, EOMI Lungs: Good air entry; No crackles Heart: S1S2 normal, Regular rhythm, No murmurs Abdomen: Soft, non-tender, non-distended. Neuro: CN grossly intact, No focal deficits. Psych: Normal mood & affect. Objective Labs 09/12/23 14:51 09/12/23 14:51 Labs: Laboratory Results - last 24 hr 09/13/23 09/13/23 09/13/23 06:40 16:17 20:32 POC Glucose 141 149 POC Glucose Comment Glu2: cleaned meter TSH 3rd Generation 2.48 09/14/23 09/14/23 06:27 11:12 POC Glucose 131 168 POC Glucose Comment Glu2: cleaned meter TSH 3rd Generation A&P - Cardiology (1) Atrial flutter with rapid ventricular response: Assessment/Problem Details: Patient's atrial flutter is of uncertain duration. It is, though, asymptomatic. Because of this I recommend approximately 1 month of rate control with antithrombotic therapy and thereafter we will embark on efforts to restore rhythm thereafter. Evaluation for coronary disease does not appear to be necessary. An echocardiogram is pending and we will advise. Code(s): I48.92 - Unspecified atrial flutter Plan Continue Eliquis 5 mg twice daily and Toprol XL 50 mg a day. Ok to discharge today. Follow up with Dr. Ch in 1 month. Documented By: Faraz Gilliam MD 08/27 12/20 1324 Signed By: <Electronically signed by Faraz Gilliam MD> 09/14/23 1334 [facility] Work Phone: 1(520) 381-215905-18-2024 Progress note Author Elva Florian [facility] September 14, 2023 2:03am Note Date/Time September 13, 2023 6:15p m [facility] [address] [place] [address] Hospitalist Progress Note Signed Patient: Kerry Gay MR#: [id number] : 1955 Acct:[id number] Age/Sex: 67 / F Adm Date: 4 Loc: 3T Room: [address] [place] [address] Type: ADM IN Attending Dr: Elva Florian MD Copies to: ~ Date of Service: 09/13/2023 Subjective Subjective Narrative: 67F with PMH of HTN, DM, HLD, GERD who was referred from doctor office to ED dueto incidental finding of tachycardia and admitted for the evaluation and treatment of new onset A flutter Assessment And Plan Newly diagnosed A flutter with RVR No SOB, Chest pain, hemodynamically stable, rate still not well controlled the patient was found to have Afib RVR in the ED with heart rate up to 136 and was give IV metoprolol EKG ED shows Aflutter @ 136 bpm without significant acute changes CXR ED no acute cardiopulmonary abnormality No significant electrolyte Abnormality Mg 1.6 (add MagOx) TSH LDL 59 Echocardiogram Ejection Fraction = 35-40%. Rate control : Agree with metoprolol,Diltiazem PO Agree Eliquis Telemetry Cardiology recommendation appreciated New Cardiomyopathy may need more work up will defer it to Cardiology team DM blood sugars were reviewed carbohydrate controlled diet sliding scale insulin and accuchecks hold oral antidiabetic medication basal insulin hypoglycemia protocol INTERVAL HPI:?As Above, Pt resting in bed. feeling better. Denies any chest pain, SOB Chronic diseases:?Unless mentioned Above, Essential home medications have been continued.? DVT Px:?Addressed Disposition:?To be determined Plan of care Discussed with:?the medical team, the patient and her significant other at bedside Exam Physical Exam Vital Signs: Temp Pulse Resp BP Pulse Ox O2 Del Method 36.7 C 124 H 14 108/74 94 L Room Air 09/13/23 16:00 09/13/23 16:00 09/13/23 16:00 09/13/23 16:00 09/13/23 16:00 09/13/23 16:00 Narrative: GEN: Pleasant, Cooperative, Not in acute distress. NECK: Supple, ? JVD LUNGS: CTA. normal respiratory effort. CV: S1S2 nl, ? M/R/G ABD: Soft, ND, NT, + BS, ? HSM EXT: No edema in LE bilaterally, no calf muscle tenderness. NEURO: ? FND PSYCH: nl affect, ? hallucinations, nl speech, AOx3. Objective Lab Results 09/12/23 14:51 09/12/23 14:51 Meds Allergies and Active Meds Allergies Sulfa (Sulfonamide Antibiotics) Allergy (Verified 09/12/23 14:26) Vomiting Active Meds: Active Medications Generic Name Dose Route Start Last Admin Trade Name Freq PRN Reason Stop Dose Admin Acetaminophen 650 mg 09/12/23 19:59 Acetaminophen 325 Mg Tablet PO 09/11/24 19:58 Q6H PRN Pain 1-5 or fever Apixaban 5 mg 09/13/23 12:30 09/13/23 13:53 Apixaban 5 Mg Tablet PO 09/12/24 12:29 5 mg BID PARMJIT Administration Aspirin 81 mg 09/13/23 09:00 09/13/23 08:37 Aspirin 81 Mg Tablet. PO 09/12/24 08:59 81 mg DAILY PARMJIT Administration Atorvastatin Calcium 10 mg 09/13/23 09:00 09/13/23 08:38 Atorvastatin 10 Mg Tablet PO 09/12/24 08:59 10 mg DAILY PARMJIT Administration Dextrose 0 gm 09/12/23 20:04 Dextrose 50% In Water 25 Gm/50 Ml Syringe IV-PUSH 09/11/24 20:03 PRN PRN Hypoglycemia Diltiazem HCl 30 mg 09/12/23 22:00 09/13/23 13:53 Diltiazem 30 Mg Tablet PO 09/11/24 21:59 30 mg QID PARMJIT Administration Docusate Sodium 100 mg 09/13/23 09:00 09/13/23 08:37 Docusate 100 Mg Capsule PO 09/12/24 08:59 100 mg DAILY PARMJIT Administration Empagliflozin 25 mg 09/13/23 09:00 09/13/23 08:38 Empagliflozin 25 Mg Tablet PO 09/12/24 08:59 25 mg DAILY PARMJIT Administration Folic Acid 1 mg 09/13/23 09:00 09/13/23 08:38 Folic Acid 1 Mg Tablet PO 09/12/24 08:59 1 mg DAILY PARMJIT Administration Glucose 0 gm 09/12/23 20:04 Dextrose 40% Gel 15 Gm Tube PO 09/11/24 20:03 PRN PRN Hypoglycemia Insulin Aspart 0 units 09/12/23 22:00 09/13/23 16:24 Insulin Aspart 300 Units/3 Ml Insuln.Pen SUBCUT 09/11/24 21:59 Not Given TID.WM.HS [facility] Protocol Insulin Glargine 20 units 09/13/23 09:00 09/13/23 08:40 Insulin Glargine 300 Units/3 Ml Insuln.Pen SUBCUT 09/12/24 08:59 20 units DAILY PARMJIT Administration Metoprolol Succinate 50 mg 09/14/23 09:00 Metoprolol Succinate 50 Mg Tab.Er.24h PO 09/13/24 08:59 DAILY PARMJIT Metoprolol Tartrate 5 mg 09/12/23 20:04 09/13/23 16:47 Metoprolol Tartrate 5 Mg/5 Ml Vial IV-PUSH 09/11/24 20:03 5 mg Q4H PRN Administration Hypertension Nortriptyline HCl 100 mg 09/13/23 09:00 09/13/23 08:37 Nortriptyline 25 Mg Capsule PO 09/12/24 08:59 100 mg DAILY PARMJIT Administration Ondansetron HCl 4 mg 09/12/23 19:59 Ondansetron 4 Mg/2 Ml Vial IV-PUSH 09/11/24 19:58 Q6H PRN Nausea And Vomiting Pantoprazole Sodium 40 mg 09/13/23 09:00 09/13/23 08:38 Pantoprazole 40 Mg Tablet.Dr PO 09/12/24 08:59 40 mg DAILY PARMJIT Administration Sodium Chloride 0 ml 09/12/23 14:25 09/13/23 16:47 Sodium Chloride 0.9 % 10 Ml Syringe IV-PUSH 09/11/24 14:24 10 ml PRN PRN Administration Flush Temazepam 30 mg 09/13/23 22:00 Temazepam 15 Mg Capsule PO 03/11/24 21:59 QHS [facility] A&P - Hospitalist Assessment/Plan (1) New onset atrial flutter: (2) Atrial flutter with rapid ventricular response: (3) Type 2 diabetes mellitus: (4) Hyperlipidemia: (5) Hypertension: Plan Documented By: Elva Florian MD 09/13/23 1443 Signed By: <Electronically signed by Elva Florian MD> 09/14/23 0201 [facility] Work Phone: [phone] 205-567405-17-2024 Consult note Author Darrell Ch [facility] September 13, 2023 12:25pm Note Date/Time September 13, 2023 12:26 pm [facility] [address] [place] [address] Cardiology Consult Note Signed Patient: Kerry Gay MR#: [id number] : 1955 Acct:[id number] Age/Sex: 67 / F Adm Date: 4 Loc: Room: [address] [place] [address] Type: ADM INOo Attending Dr: Elva Florian MD Copies to: Sandra Keita, MD Darrell Martin MD~ Cardiology HPI History of Present Illness Consult Date: 09/13/23 Reason for Consult: Atrial flutter with rapid ventricular response HPI: Ms. Gay is a 67 year old female seen in this regard She is an individual who had no arrhythmia symptomatology whatsoever. She is denied any anginal discomfort dyspnea orthopnea PND or easy fatigability. Occasionally a little dizziness. She is at her primary care provider's office and they noted her heart rate to berapid. She was sent to the hospital and found to be in atrial flutter with 2-1 conduction. Rate control strategy was implemented. The duration of the patient's arrhythmia, though, is uncertain. Because she is minimally symptomatic it is entirely possible she has been out of rhythm for days weeks or even months. Because of this I am concerned about thromboembolic risk and because of this we will recommend rate control with anticoagulant therapy but will not embark on an effort to restore rhythm until the patient's been adequately anticoagulated for 3 to 4 weeks. Patient otherwise has no manifestations of heart disease. Troponins are normal. Chest x-ray is clear. EKG relatively unremarkable except for the arrhythmia. Review of Systems Review of Systems All other systems reviewed & are negative unless noted below or in HPI Constitutional Constitutional: Reports system reviewed and no additional complaints, except as documented Eyes Eyes: Reports system reviewed and no additional complaints, except as documented ENT Ears, Nose, Mouth, and Throat: Reports system reviewed and no additional complaints, except as documented Cardiovascular Cardiovascular: Reports as per HPI Respiratory Respiratory: Reports system reviewed and no additional complaints, except as documented Gastrointestinal Gastrointestinal: Reports system reviewed and no additional complaints, except as documented Genitourinary Genitourinary: Reports system reviewed and no additional complaints, except as documented Musculoskeletal Musculoskeletal: Reports system reviewed and no additional complaints, except asdocumented Integumentary/Breasts Skin/Breast: Reports system reviewed and no additional complaints, except as documented Neurologic Neurologic: Reports system reviewed and no additional complaints, except as documented Psychiatric Psychiatric: Reports system reviewed and no additional complaints, except as documented Endocrine Endocrine: Reports system reviewed and no additional complaints, except as documented Hematologic/Lymphatic Hematologic/Lymphatic: Reports system reviewed and no additional complaints, except as documented Allergic/Immunologic Allergic/Immunologic: Reports system reviewed and no additional complaints, except as documented [facility] Medical History History of esophageal stricture BMI 28.0-28.9,adult Cigarette nicotine dependence GERD (gastroesophageal reflux disease) Obesity Hypertension Diabetes Hyperlipidemia Type 2 diabetes mellitus Chronic kidney disease (CKD) stage G2/A2, mildly decreased glomerular filtrationrate (GFR) between 60-89 mL/min/1.73 square meter and albuminuria creatinine ratio between 30-299 mg/g Peripheral neuropathy Insulin long-term use Dietary counseling and surveillance Vitamin B 12 deficiency Surgical History History of foot surgery History of blepharoplasty History of bilateral cataract extraction Hx of cholecystectomy H/O: hysterectomy Hx of tonsillectomy Family History Father Heart disease History of stroke Legacy FamHx Problem: Diagnosed with Stroke Cancer throat heart disease Mother heart attack Heart disease Hypertension Son Diabetes Sister complications from fall/hit head on sink Brother complications from covid Social History Smoking Status: Current every day smoker Tobacco Type: cigarettes Substance Use Type: None Meds Medications and Allergies Allergies Sulfa (Sulfonamide Antibiotics) Allergy (Verified 09/12/23 14:26) Vomiting Home Medications aspirin 81 mg tablet,delayed release 81 mg PO DAILY 02/09/21 [History Confirmed 09/12/23] empagliflozin 25 mg tablet (Jardiance) 25 mg PO DAILY 02/09/21 [History Confirmed 09/12/23] folic acid 1 mg tablet 1 mg PO DAILY 02/09/21 [History Confirmed 09/12/23] pioglitazone 15 mg tablet 15 mg PO DAILY 02/09/21 [History Confirmed 09/12/23] semaglutide 0.25 mg or 0.5 mg (2 mg/1.5 mL) subcutaneous pen injector (Ozempic) 1 mg subcut QWEEK 02/09/21 [History Confirmed 09/12/23] simvastatin 20 mg tablet 20 mg PO DAILY 02/09/21 [History Confirmed 09/12/23] docusate sodium 100 mg capsule (Stool Softener) 100 mg PO DAILY 06/12/23 [History Confirmed 09/12/23] flash glucose sensor [FreeStyle [place] 14 Day Sensor] 06/12/23 [History Confirmed 09/12/23] insulin glargine U-300 conc 300 unit/mL (1.5 mL) subcutaneous pen (Toujeo SoloStar U-300 Insulin) 20 unit subcut DAILY 06/12/23 [History Confirmed 09/12/23] insulin lispro 100 unit/mL subcutaneous pen See Rx Instructions subcut ACHS 06/12/23 [History Confirmed 09/12/23] multivitamin 1 tab PO DAILY 06/12/23 [History Confirmed 09/12/23] pen needle, diabetic [Sure-Fine Pen [place]] 06/12/23 [History Confirmed 09/12/23] nortriptyline 50 mg capsule 100 mg PO DAILY 06/18/23 [History Confirmed 09/12/23] omeprazole 20 mg capsule,delayed release See Rx Instructions .Route .COMPLEX #90caps 07/01/23 [Rx Confirmed 09/12/23] flash glucose sensor (FreeStyle [place] 14 Day Sensor kit) #2 ea 07/22/23 [Rx Confirmed 09/12/23] temazepam 30 mg capsule 30 mg PO DAILY 30 days #30 caps 08/19/23 [Rx Confirmed 09/12/23] metformin 500 mg tablet See Rx Instructions .Route .COMPLEX #180 tabs 08/26/23 [Rx Confirmed 09/12/23] lisinopril 5 mg tablet See Rx Instructions .Route .COMPLEX #90 tabs 09/09/23 [Rx Confirmed 09/12/23] Exam Physical Exam Vital Signs: Temp Pulse Resp BP Pulse Ox O2 Del Method 97.6 F 118 H 16 123/81 94 L Room Air 09/13/23 07:46 09/13/23 07:46 09/13/23 07:46 09/13/23 07:46 09/13/23 07:46 09/13/23 08:00 HEENT Head: normal to inspection Ears: hearing grossly normal bilaterally Nose: external nose normal and nares normal Face and sinus: normal facial exam Mouth: oral mucosae normal and tongue normal Eyes Conjunctivae: conjunctivae normal Sclera: sclerae normal Neck Neck: normal visual inspection Carotids: normal carotid upstroke Lymphatic: no lymphadenopathy noted Chest Chest palpation & inspection: normal inspection of the chest Resp Effort & Inspection: normal respiratory effort Auscultation: clear to auscultation bilaterally Cardio Rate: tachycardic Rhythm: regular rhythm GI Inspection: normal to inspection Palpation: soft Skin General: no rashes or lesions noted Neuro General: patient alert, patient awake and patient oriented x3 Cognition: normal cognition Motor: muscle tone normal throughout Sensory Exam: no sensory deficits noted Results - Cardiology Labs 09/12/23 14:51 09/12/23 14:51 Lab results: Cardiac Enzymes 09/12/23 Range/Units 14:51 Total Creatine Kinase 45 (30-223) U/L B-Natriuretic Peptide 112.0 H (5-100) pg/mL Lipids 09/13/23 Range/Units 06:40 Triglycerides 198 H (0-149) mg/dL Cholesterol 125 L (140-200) mg/dL HDL Cholesterol 26 (23-92) mg/dL Cholesterol/HDL Ratio 4.8 (<5.0) CBC 09/12/23 Range/Units 14:51 RBC 5.16 H (3.60-5.00) X10E6/uL Hgb 16.9 H (11.8-15.4) g/dL Hct 49.3 H (34.0-46.4) % Plt Count 195 (150-450) x10E3/uL Neut # (Auto) 7.0 (1.8-7.7) x10E3/uL Lymph # (Auto) 2.0 (1.00-4.8) x10E3/uL [place] # (Auto) 0.6 (0.0-0.8) x10E3/uL Eos # (Auto) 0.2 (0.0-0.45) x10E3/uL Baso # (Auto) 0.1 (0.0-0.2) x10E3/uL Comprehensive Metabolic Panel 09/12/23 Range/Units 14:51 Sodium 138 (136-145) mmol/L Potassium 4.0 (3.5-5.1) mmol/L Chloride 102 (98-107) mmol/L Carbon Dioxide 25.0 (21.0-31.0) mmol/L BUN 11 (7-25) mg/dL Creatinine 0.84 (0.60-1.20) mg/dL Glucose 150 H (70-100) mg/dL Calcium 10.5 H (8.6-10.3) mg/dL Intake and Output 09/12/23 09/13/23 09/13/23 23:59 07:59 15:59 Intake Total 1000 / 1000 50 / 50 Output Total 600 / 600 Balance 1000 / 1000 -550 / -550 Intake: IV 1000 / 1000 Sodium Chloride 0.9% 1,000 ml 1 1000 / 1000 ,000 ml @ 999 mls/hr IV .Q1H1M ONE Rx#:[id number] Oral 50 / 50 Output: Urine 600 / 600 Other: # Voids 1 Weight 81.8 kg 81.8 kg Date of Last Bowel Movement 09/11/23 09/11/23 09/13/23 Patient Weight 09/13/23 23:59 Weight 81.8 kg Lab 09/12/23 14:51 PT 12.7 INR 1.1 APTT 29.3 A&P - Cardiology (1) Atrial flutter with rapid ventricular response: Assessment/Problem Details: Patient's atrial flutter is of uncertain duration. It is, though, asymptomatic. Because of this I recommend approximately 1 month of rate control with antithrombotic therapy and thereafter we will embark on efforts to restore rhythm thereafter. Evaluation for coronary disease does not appear to be necessary. An echocardiogram is pending and we will advise. Code(s): I48.92 - Unspecified atrial flutter Plan Initiate Eliquis 5 mg twice daily and Toprol XL 50 mg a day. Patient may be a suitable candidate for discharge after rate control improves. Will make arrangements for follow-up thereafter. Documented By: Darrell Ch MD 1221 Signed By: <Electronically signed by MD Darrell Ch> 09/13/23 1225 [facility] Work Phone: [phone] 168-156705-17-2024 History and physical note Author Elva Florian [facility] September 13, 2023 2:09am Note Date/Time September 12, 2023 7:53p m [facility] [address] [place] [address] Hospitalist H&P Signed Patient: Kerry Gay MR#: [id number] : 1955 Acct:[id number] Age/Sex: 67 / F Adm Date: 4 Loc: Room: [address] [place] [address] Type: ADM INOo Attending Dr: Elva Folrian MD Copies to: DO Elva Daniels MD~ HPI DATE OF EXAMINATION: 09/12/23 HISTORY OF PRESENT ILLNESS: This is a pleasant 67F with PMH of HTN, DM, HLD, GERD who was referred from doctor office to ED due to incidental finding of tachycardia and admitted for the evaluation and treatment of new onset A flutter The patient attended a follow-up visit for diabetes. At the doctor's office, shewas found with a Heart Rate ranging from 120-130, and she was subsequently sent to the Emergency Department for further evaluation. The patient denied experiencing any palpitations, Shortness of Breath, chest pain, leg swelling, fever, or chills. She has no previous history of arrhythmia or cardiac disease. she is at her baseline with no new Sx. ROS: Ten Systems reviewed with the patient, all negative except what stated above Assessment And Plan Newly diagnosed A flutter with RVR No SOB, Chest pain, hemodynamically stable the patient was found to have Afib RVR in the ED with heart rate up to 136 and was give IV metoprolol EKG ED (i personally reviewed) shows Aflutter @ 136 bpm without significant acute changes CXR ED no acute cardiopulmonary abnormality No significant electrolyte Abnormality Rate control : BB IV prn , Start Diltiazem PO Telemetry Echocardiogram TSH Mg Cardiology consult DM blood sugars were reviewed carbohydrate controlled diet. sliding scale insulin and accuchecks. hold oral antidiabetic medication basal insulin hypoglycemia protocol. Chronic diseases:?Unless mentioned Above, Essential home medications have been continued.? DVT Px:?Addressed Code Status: FULL, discussed with patient Plan of care Discussed with:?the medical team, the patient [facility] Medical History History of esophageal stricture BMI 28.0-28.9,adult Cigarette nicotine dependence GERD (gastroesophageal reflux disease) Obesity Hypertension Diabetes Hyperlipidemia Type 2 diabetes mellitus Chronic kidney disease (CKD) stage G2/A2, mildly decreased glomerular filtrationrate (GFR) between 60-89 mL/min/1.73 square meter and albuminuria creatinine ratio between 30-299 mg/g Peripheral neuropathy Insulin long-term use Dietary counseling and surveillance Vitamin B 12 deficiency Surgical History History of foot surgery History of blepharoplasty History of bilateral cataract extraction Hx of cholecystectomy H/O: hysterectomy Hx of tonsillectomy Family History Father Heart disease History of stroke Legacy FamHx Problem: Diagnosed with Stroke Cancer throat heart disease Mother heart attack Heart disease Hypertension Son Diabetes Sister complications from fall/hit head on sink Brother complications from covid Social History Smoking Status: Current every day smoker Tobacco Type: cigarettes Substance Use Type: None Meds Medications and Allergies Allergies Sulfa (Sulfonamide Antibiotics) Allergy (Verified 09/12/23 14:26) Vomiting Home Medications aspirin 81 mg tablet,delayed release 81 mg PO DAILY 02/09/21 [History Confirmed 09/12/23] empagliflozin 25 mg tablet (Jardiance) 25 mg PO DAILY 02/09/21 [History Confirmed 09/12/23] folic acid 1 mg tablet 1 mg PO DAILY 02/09/21 [History Confirmed 09/12/23] pioglitazone 15 mg tablet 15 mg PO DAILY 02/09/21 [History Confirmed 09/12/23] semaglutide 0.25 mg or 0.5 mg (2 mg/1.5 mL) subcutaneous pen injector (Ozempic) 1 mg subcut QWEEK 02/09/21 [History Confirmed 09/12/23] simvastatin 20 mg tablet 20 mg PO DAILY 02/09/21 [History Confirmed 09/12/23] docusate sodium 100 mg capsule (Stool Softener) 100 mg PO DAILY 06/12/23 [History Confirmed 09/12/23] flash glucose sensor [FreeStyle Lida 14 Day Sensor] 06/12/23 [History Confirmed 09/12/23] insulin glargine U-300 conc 300 unit/mL (1.5 mL) subcutaneous pen (Toujeo SoloStar U-300 Insulin) 20 unit subcut DAILY 06/12/23 [History Confirmed 09/12/23] insulin lispro 100 unit/mL subcutaneous pen See Rx Instructions subcut ACHS 06/12/23 [History Confirmed 09/12/23] multivitamin 1 tab PO DAILY 06/12/23 [History Confirmed 09/12/23] pen needle, diabetic [Sure-Fine Pen [place]] 06/12/23 [History Confirmed 09/12/23] nortriptyline 50 mg capsule 100 mg PO DAILY 06/18/23 [History Confirmed 09/12/23] omeprazole 20 mg capsule,delayed release See Rx Instructions .Route .COMPLEX #90caps 07/01/23 [Rx Confirmed 09/12/23] flash glucose sensor (FreeStyle Lida 14 Day Sensor kit) #2 ea 07/22/23 [Rx Confirmed 09/12/23] temazepam 30 mg capsule 30 mg PO DAILY 30 days #30 caps 08/19/23 [Rx Confirmed 09/12/23] metformin 500 mg tablet See Rx Instructions .Route .COMPLEX #180 tabs 08/26/23 [Rx Confirmed 09/12/23] lisinopril 5 mg tablet See Rx Instructions .Route .COMPLEX #90 tabs 09/09/23 [Rx Confirmed 09/12/23] Exam Physical Exam Vital Signs: Temp Pulse Resp BP Pulse Ox O2 Del Method 36.7 C 118 H 17 116/70 97 Room Air 09/12/23 14:23 09/12/23 18:18 09/12/23 18:18 09/12/23 16:44 09/12/23 18:18 09/12/23 18:18 Narrative: GEN: Pleasant, Cooperative, Not in acute distress. HEAD: NCAT. ENT: Lips, and tongue are normal, oropharynx normal. EYES: white sclera, PERRLA NECK: Supple, ? JVD, ? LAD, ? thyromegaly, ? carotid bruits LUNGS: CTA. normal respiratory effort. CHEST: no chest wall tenderness. CV: S1S2 nl, ? M/R/G ABD: Soft, ND, NT, + BS, ? rebound/guarding, ?CVA tenderness, ? HSM MUSCULOSKELETAL: ? joint swelling or erythema SKIN: Normal temperature, turgor and texture. EXT: No edema in LE bilaterally, no calf muscle tenderness. NEURO: ? FND, CN II-XII (intact), Motor Strength (5/5 RUE, 5/5 LUE, 5/5 RLE, 5/5LLE) , Sensation (Intact to soft touch), rapid alternating movements and finger to nose test normal and symmetric. PSYCH: nl affect, ? hallucinations, nl speech, AOx3. Results - Hospitalist H&P Lab Results Labs: Laboratory Last Values Corrected WBC 9.8 X10E3/uL (3.8-11.6) 09/12/23 14:51 Uncorrected WBC Count 9.8 x10E3/uL (3.8-11.6) 09/12/23 14:51 RBC 5.16 X10E6/uL (3.60-5.00) H 09/12/23 14:51 Hgb 16.9 g/dL (11.8-15.4) H 09/12/23 14:51 Hct 49.3 % (34.0-46.4) H 09/12/23 14:51 MCV 95.6 fl (80-100) 09/12/23 14:51 MCH 32.7 pg (24.7-34.3) 09/12/23 14:51 MCHC 34.2 g/dL (32.0-35.0) 09/12/23 14:51 RDW 12.7 % (11.9-15.3) 09/12/23 14:51 Plt Count 195 x10E3/uL (150-450) 09/12/23 14:51 MPV 9.5 fl (6.3-10.7) 09/12/23 14:51 Neut % (Auto) 71.3 % (.) 09/12/23 14:51 Lymph % (Auto) 20.2 % (.) 09/12/23 14:51 [place] % (Auto) 5.9 % (.) 09/12/23 14:51 Eos % (Auto) 1.7 % (.) 09/12/23 14:51 Baso % (Auto) 0.9 % (.) 09/12/23 14:51 Nucleat RBC Rel Count 0.2 /100 WBC (0-0.5) 09/12/23 14:51 Neut # (Auto) 7.0 x10E3/uL (1.8-7.7) 09/12/23 14:51 Lymph # (Auto) 2.0 x10E3/uL (1.00-4.8) 09/12/23 14:51 [place] # (Auto) 0.6 x10E3/uL (0.0-0.8) 09/12/23 14:51 Eos # (Auto) 0.2 x10E3/uL (0.0-0.45) 09/12/23 14:51 Baso # (Auto) 0.1 x10E3/uL (0.0-0.2) 09/12/23 14:51 Monocyte Dist Width 19.90 % (0.00-20.00) 09/12/23 14:51 PT 12.7 Seconds (9.0-12.9) 09/12/23 14:51 INR 1.1 09/12/23 14:51 APTT 29.3 Seconds (25.1-36.5) 09/12/23 14:51 PHA Creatinine Clear 73.11 09/12/23 14:51 Sodium 138 mmol/L (136-145) 09/12/23 14:51 Potassium 4.0 mmol/L (3.5-5.1) 09/12/23 14:51 Chloride 102 mmol/L (98-107) 09/12/23 14:51 Carbon Dioxide 25.0 mmol/L (21.0-31.0) 09/12/23 14:51 Anion Gap 15.0 mEq/L (6.0-15.0) 09/12/23 14:51 BUN 11 mg/dL (7-25) 09/12/23 14:51 Creatinine 0.84 mg/dL (0.60-1.20) 09/12/23 14:51 Est GFR (CKD-EPI) > 60.0 mL/Min 09/12/23 14:51 Glucose 150 mg/dL (70-100) H 09/12/23 14:51 Calcium 10.5 mg/dL (8.6-10.3) H 09/12/23 14:51 Total Creatine Kinase 45 U/L (30-223) 09/12/23 14:51 Troponin I High Sens 7.3 pg/mL (0.0-15.0) 09/12/23 14:51 B-Natriuretic Peptide 112.0 pg/mL (5-100) H 09/12/23 14:51 Assessment & Plan Assessment/Plan (1) New onset atrial flutter: (2) Atrial flutter with rapid ventricular response: (3) Type 2 diabetes mellitus: (4) Hyperlipidemia: (5) Hypertension: Plan IP vs OBS Justification Based on differential dx, clinical care plan, and risk of adverse events, if untreated, in my clinical judgement this patient requires an acute care setting as: OBSERVATION because of an expectation of an under 2 midnight stay. Estimated length of stay (# of days): 1 Documented By: Elva Florian MD 09/12/231952 Signed By: <Electronically signed by Elva Florian MD> 09/13/23208 [facility] Work Phone: [phone]) 477-786202-12-2024 Evaluation note* Encounter Date Diagnosis Assessment Notes Treatment Notes Treatment Clinical Notes May, Type 2 diabetes mellitus with hyperglycemia (ICD-10 - E11.65) [facility] Other 01-23-2024 Evaluation note* Encounter Date Diagnosis Assessment Notes Treatment Notes Treatment Clinical Notes Apr, Primary insomnia (ICD-10 - F51.01) [facility] Other 12-11-2023 Evaluation note* Encounter Date Diagnosis Assessment Notes Treatment Notes Treatment Clinical Notes Mar, Type 2 diabetes mellitus with hyperglycemia (ICD-10 - E11.65) [facility] Other 11-06-2023 Evaluation note* Encounter Date Diagnosis Assessment Notes Treatment Notes Treatment Clinical Notes Feb, Primary insomnia (ICD-10 - F51.01) Discussed that increasing temazepam would not be recommended due to concerns for side effects. She will trial melatonin at bedtime. discussed if not improving could trial adjusting nortriptyline or changing to something else such as amitriptyline or trazodone. She is in agreement with this plan. I have personally reviewed the OARRS report for this patient. I have considered the risks of abuse, dependence, addiction and diversion. I believe that it is clinically appropriate for this patient to be prescribed this medication based on documented diagnosis. Will f/u in 3 months for recheck Feb, HTN (hypertension) (ICD-10 - I10) BP seems to be overcorrected at this point likely contributing to dizziness, she is recommended to decrease dosage of lisinopril to 2.5 mg daily. Feb, GERD (gastroesophageal reflux disease) (ICD-10 - K21.9) Discussed can start famotidine PRN breakthrough GERD [facility] Other 10-02-2023 Evaluation note* Encounter Date Diagnosis Assessment Notes Treatment Notes Treatment Clinical Notes Jan, Primary insomnia (ICD-10 - F51.01) [facility] Other 09-11-2023 Evaluation note* Encounter Date Diagnosis Assessment Notes Treatment Notes Treatment Clinical Notes Dec, Type 2 diabetes mellitus with hyperglycemia (ICD-10 - E11.65) Managing type 2 diabetes material was published 1. Controlled, Type 2 diabetes with A1c 6.3% 2. Blood glucose levels improved. According to [employer] cgm download 12/25/2022- 3: Avg glucose 156. >250-1%, >180-18%, 70-180-81%, <70-0%, <54-0%. CV 19%. Reviewed downlod with pt., readings above target from higher carb load meals. Overall glucose pattern improved. Reviewed with pt target fasting am/meal to meal glucose 90/130, 2 hours after meal <180; bedtime 120/150-180. Pt verbalizes understanding. 3. Patient is alert, oriented and receptive to making changes or counseling. Notes: Seen for an assessment of current glucose pattern, changes in treatment plan, counseling and coordination of care related to diabetes, risks, and benefits of treatment, medications, and side effects. TOPICS REVIEWED: 1. Time was spent reviewing: a. Basic concepts of diabetes, progressive beta cell , concepts of basal/bolus/correc tive insulin requirements. Basal: The goal is fasting blood glucose of 90-130mg. IF fasting blood glucose starts to run under 100mg 3x's/ week, decrease dose by 10%. Bolus: The goal is to hold the blood glucose level steady meal to meal. If pt. is going to have increased physical activity after a meal, decrease the schedule meal dose prior to the activity by 30-50%. If pt. skips a meal do not take this dose. Correction: The goal is to correct an elevated glucose back into the 100-150mg range b. Nutrition: Concepts of healthy diet, encouraged to decrease saturated fat in diet and increase non-starchy vegetables and fruits in diet. BMI: Pt. needs to select one small change to decrease caloric intake or increase physical activity to help decrease weight. c. Correct treatment of hypoglycemia, carry a glucose source at all times on your person, in vehicles, and at bedside. Can use glucose tablets/4, four ounces of pop or juice equal to 15 G of carbohydrate. Blood glucose should be 100 mg/dl or higher when driving. d. ADA glucose goals for age and medical complexity reviewed e. Patient questions addressed 2. Activity/exercise: Encouraged to start any form of physical activity. Start low level and increase slowly to a minimal goal of 150 minutes/week. Limit activity to what is allowed by other issues such as cardiac, pulmonary or orthopedic restrictions. 3. Standards of care: Reminded to have an annual dilated eye exam, A1C every 3 months, urine testing for microalbumin once/year, check feet daily and report any cuts or sores that do not appear to be healing. 4. Meter: Plan to check blood glucose: Please check blood glucose levels 4 times/day. Back to back meals reveal effectiveness of bolus dosing. The blood glucose data is used to determine insulin doses and confirm symptoms for hypoglycemia and hyperglcyemia. The blood glucose data is used to determine insulin doses, and confirm symptoms for hypoglycemia and hyperglcyemia. 5. [facility]. Contact office if any issues or concerns with patterns of hypoglycemia, hyperglycemia, or diabetes medication issues. 6. Prescriptions: Will call when needed. 7. Prescriptions will not be filled unless you are compliant with follow up appointments or have a follow up appointment scheduled as ordered by your provider. Refills should be requested at the time of your visit. Dec, Dietary counseling and surveillance (ICD-10 - Z71.3) Eat well, exercise well, be well: dietary and fitness guidelines material was published Dec, Hyperlipidemia (ICD-10 - E78.5) Managing your cholesterol material was published 08/2022 ldl 67- at target. On statin. Trig 234 Dec, HTN (hypertension) (ICD-10 - I10) Qs to ask: hypertension material was published on regina Dec, residential current use of insulin (ICD-10 - Z79.4) Dec, Peripheral neuropathy (ICD-10 - G62.9) Living with peripheral neuropathy material was published Dec, Vitamin B 12 deficiency (ICD-10 - E53.8) Good food sources of vitamin B12 material was published 08/2022 Vit b12 392 at target Dec, Injury of foot, left (ICD-10 - S99.922A) Referral to podiatry Dec, BMI 30.0-30.9,adult (ICD-10 - Z68.30) Eating healthy: tips to make it easier material was published [facility] Other 09-06-2023 Evaluation note* Encounter Date Diagnosis Assessment Notes Treatment Notes Treatment Clinical Notes Dec, Esophageal stricture (ICD-10 - K22.2) Dec, Dysphagia (ICD-10 - R13.10) Patient has a narrow esophagus but is improving Patient is to continue omeprazole daily [facility] Other 09-01-2023 Evaluation note* Encounter Date Diagnosis Assessment Notes Treatment Notes Treatment Clinical Notes Dec, Primary insomnia (ICD-10 - F51.01) [facility] Other 08-22-2023 Evaluation note* Encounter Date Diagnosis Assessment Notes Treatment Notes Treatment Clinical Notes Nov, Primary insomnia (ICD-10 - F51.01) [facility] Other 08-02-2023 Evaluation note* Encounter Date Diagnosis Assessment Notes Treatment Notes Treatment Clinical Notes Nov, Medicare annual wellness visit, subsequent (ICD-10 - Z00.00) Personalized health advice was given to the beneficiary including a written plan for screenings discussed and provided. Advanced care planning reviewed and/or information given as requested. Additional counseling was provided here today in regards to, [ ]. The above visit was performed by Loren PICKARD, under direct supervision of Dr. Sandra Keita DO. Document reviewed and amended by provider signed below. UTD on mammogram, lung cancer and colon cancer screening Due for DEXA Declines all vaccines Nov, Peripheral neuropathy (ICD-10 - G62.9) Nov, Post-menopausal (ICD-10 - Z78.0) Nov, Cigarette nicotine dependence (ICD-10 - F17.200) Chantix has worked well in the past, will restart. Follow up in 3 months for recheck Nov, Other Personalized he alth advice was given to the beneficiary including a written plan for screenings discussed and provided. Advanced care planning reviewed and/or information given as requested. Additional counseling was provided here today in regards to, [ ]. The above visit was performed by Loren PICKARD under direct supervision of Dr. Sandra Keita DO. Document reviewed and amended by provider signed below. [facility] Other 07-11-2023 Evaluation note* Encounter Date Diagnosis Assessment Notes Treatment Notes Treatment Clinical Notes Oct, Primary insomnia (ICD-10 - F51.01) [facility] Other 06-01-2023 Evaluation note* Encounter Date Diagnosis Assessment Notes Treatment Notes Treatment Clinical Notes Sep, Type 2 diabetes mellitus with hyperglycemia (ICD-10 - E11.65) Managing type 2 diabetes material was published 1. Controlled, Type 2 diabetes with A1c 6.6% 2. Blood glucose levels improved. According to [facility] cgm download 09/13/2022- 3: Avg glucose 151. >250-0%, >180-14%, 70-180-86%, <70-0%, <54-0%. CV 16%. Reviewed downlod with pt., readings above target from higher carb load meals. Overall glucose pattern improved. Reviewed with pt target fasting am/meal to meal glucose 90/130, 2 hours after meal <180; bedtime 120/150-180. Pt verbalizes understanding. 3. Patient is alert, oriented and receptive to making changes or counseling. Notes: Seen for an assessment of current glucose pattern, changes in treatment plan, counseling and coordination of care related to diabetes, risks, and benefits of treatment, medications, and side effects. TOPICS REVIEWED: 1. Time was spent reviewing: a. Basic concepts of diabetes, progressive beta cell , concepts of basal/bolus/correc tive insulin requirements. Basal: The goal is fasting blood glucose of 90-130mg. IF fasting blood glucose starts to run under 100mg 3x's/ week, decrease dose by 10%. Bolus: The goal is to hold the blood glucose level steady meal to meal. If pt. is going to have increased physical activity after a meal, decrease the schedule meal dose prior to the activity by 30-50%. If pt. skips a meal do not take this dose. Correction: The goal is to correct an elevated glucose back into the 100-150mg range b. Nutrition: Concepts of healthy diet, encouraged to decrease saturated fat in diet and increase non-starchy vegetables and fruits in diet. BMI: Pt. needs to select one small change to decrease caloric intake or increase physical activity to help decrease weight. c. Correct treatment of hypoglycemia, carry a glucose source at all times on your person, in vehicles, and at bedside. Can use glucose tablets/4, four ounces of pop or juice equal to 15 G of carbohydrate. Blood glucose should be 100 mg/dl or higher when driving. d. ADA glucose goals for age and medical complexity reviewed e. Patient questions addressed 2. Activity/exercise: Encouraged to start any form of physical activity. Start low level and increase slowly to a minimal goal of 150 minutes/week. Limit activity to what is allowed by other issues such as cardiac, pulmonary or orthopedic restrictions. 3. Standards of care: Reminded to have an annual dilated eye exam, A1C every 3 months, urine testing for microalbumin once/year, check feet daily and report any cuts or sores that do not appear to be healing. 4. Meter: Plan to check blood glucose: Please check blood glucose levels 4 times/day. Back to back meals reveal effectiveness of bolus dosing. The blood glucose data is used to determine insulin doses and confirm symptoms for hypoglycemia and hyperglcyemia. The blood glucose data is used to determine insulin doses, and confirm symptoms for hypoglycemia and hyperglcyemia. 5. [facility] Contact office if any issues or concerns with patterns of hypoglycemia, hyperglycemia, or diabetes medication issues. 6. Prescriptions: LISSETH AMATO: None at this time. 7. Prescriptions will not be filled unless you are compliant with follow up appointments or have a follow up appointment scheduled as ordered by your provider. Refills should be requested at the time of your visit. Sep, Dietary counseling and surveillance (ICD-10 - Z71.3) Eat well, exercise well, be well: dietary and fitness guidelines material was published Sep, Hyperlipidemia (ICD-10 - E78.5) Managing your cholesterol material was published 08/2022 ldl 67- at target. On statin. Trig 234 Sep, HTN (hypertension) (ICD-10 - I10) Qs to ask: hypertension material was published on regina Sep, medical terminologist current use of insulin (ICD-10 - Z79.4) Sep, Peripheral neuropathy (ICD-10 - G62.9) Living with peripheral neuropathy material was published Sep, Vitamin B 12 deficiency (ICD-10 - E53.8) Good food sources of vitamin B12 material was published 08/2022 Vit b12 392 at target Sep, BMI 29.0-29.9,adult (ICD-10 - Z68.29) Eating healthy: tips to make it easier material was published [email or web address] Other 05-15-2023 Evaluation note* Encounter Date Diagnosis Assessment Notes Treatment Notes Treatment Clinical Notes August, Primary hypertension (ICD-10 - I10) August, Type 2 diabetes mellitus with hyperglycemia (ICD-10 - E11.65) [facility] Other 04-13-2023 Evaluation note* Encounter Date Diagnosis Assessment Notes Treatment Notes Treatment Clinical Notes Jul, Primary insomnia (ICD-10 - F51.01) trial increasing dose of nortriptyline to 100mg at bedtime. Continue temazepam PRN. Advised to trial breathing exericse of meditation when waking up in the night. Consider restarting CPAP therapy if continuing to have excessive daytime somnolence. Jul, Cigarette nicotine dependence (ICD-10 - F17.200) Due for LDCT for lung CA screening [facility] Other 04-10-2023 Evaluation note* Encounter Date Diagnosis Assessment Notes Treatment Notes Treatment Clinical Notes Jul, Primary insomnia (ICD-10 - F51.01) [facility] Other 03-08-2023 Evaluation note* Encounter Date Diagnosis Assessment Notes Treatment Notes Treatment Clinical Notes Jun, Primary insomnia (ICD-10 - F51.01) [facility] Other 02-21-2023 Evaluation note* Encounter Date Diagnosis Assessment Notes Treatment Notes Treatment Clinical Notes May, Type 2 diabetes mellitus with hyperglycemia (ICD-10 - E11.65) [facility] Other 02-20-2023 Evaluation note* Encounter Date Diagnosis Assessment Notes Treatment Notes Treatment Clinical Notes May, Type 2 diabetes mellitus with hyperglycemia (ICD-10 - E11.65) Managing type 2 diabetes material was published 1. Uncontrolled, Type 2 diabetes with A1c 7.1% 2. Blood glucose levels improved. According to [facility] cgm download 06/04/2022-06/17/2022 : Avg glucose 180. >250-1%, >180-48%, 70-180-51%, <70-0%, <54-0%. CV 16.1%. Reviewed downlod with pt., readings above target from higher carb load meals. Reviewed with pt target fasting am/meal to meal glucose 90/130, 2 hours after meal <180; bedtime 120/150-180. Pt verbalizes understanding. 3. Patient is alert, oriented and receptive to making changes or counseling. Notes: Seen for an assessment of current glucose pattern, changes in treatment plan, counseling and coordination of care related to diabetes, risks, and benefits of treatment, medications, and side effects. TOPICS REVIEWED: 1. Time was spent reviewing: a. Basic concepts of diabetes, progressive beta cell , concepts of basal/bolus/correc tive insulin requirements. Basal: The goal is fasting blood glucose of 90-130mg. IF fasting blood glucose starts to run under 100mg 3x's/ week, decrease dose by 10%. Bolus: The goal is to hold the blood glucose level steady meal to meal. If pt. is going to have increased physical activity after a meal, decrease the schedule meal dose prior to the activity by 30-50%. If pt. skips a meal do not take this dose. Correction: The goal is to correct an elevated glucose back into the 100-150mg range b. Nutrition: Concepts of healthy diet, encouraged to decrease saturated fat in diet and increase non-starchy vegetables and fruits in diet. BMI: Pt. needs to select one small change to decrease caloric intake or increase physical activity to help decrease weight. c. Correct treatment of hypoglycemia, carry a glucose source at all times on your person, in vehicles, and at bedside. Can use glucose tablets/4, four ounces of pop or juice equal to 15 G of carbohydrate. Blood glucose should be 100 mg/dl or higher when driving. d. ADA glucose goals for age and medical complexity reviewed e. Patient questions addressed 2. Activity/exercise: Encouraged to start any form of physical activity. Start low level and increase slowly to a minimal goal of 150 minutes/week. Limit activity to what is allowed by other issues such as cardiac, pulmonary or orthopedic restrictions. 3. Standards of care: Reminded to have an annual dilated eye exam, A1C every 3 months, urine testing for microalbumin once/year, check feet daily and report any cuts or sores that do not appear to be healing. 4. Meter: Plan to check blood glucose: Please check blood glucose levels 4 times/day. Back to back meals reveal effectiveness of bolus dosing. The blood glucose data is used to determine insulin doses and confirm symptoms for hypoglycemia and hyperglcyemia. The blood glucose data is used to determine insulin doses, and confirm symptoms for hypoglycemia and hyperglcyemia. 5. [facility]. Contact office if any issues or concerns with patterns of hypoglycemia, hyperglycemia, or diabetes medication issues. 6. Prescriptions: Pt will call when needed. 7. Prescriptions will not be filled unless you are compliant with follow up appointments or have a follow up appointment scheduled as ordered by your provider. Refills should be requested at the time of your visit. May, Dietary counseling and surveillance (ICD-10 - Z71.3) Eat well, exercise well, be well: dietary and fitness guidelines material was published May, Hyperlipidemia (ICD-10 - E78.5) Managing your cholesterol material was published 08/2021 ldl 68- at target. On statin May, HTN (hypertension) (ICD-10 - I10) Qs to ask: hypertension material was published on regina May, residential current use of insulin (ICD-10 - Z79.4) May, Peripheral neuropathy (ICD-10 - G62.9) Living with peripheral neuropathy material was published May, Vitamin B 12 deficiency (ICD-10 - E53.8) Good food sources of vitamin B12 material was published 08/2021 Vit b12 368 at target May, BMI 35.0-35.9,adult (ICD-10 - Z68.35) Setting weight-loss goals material was published [email or web address] Other 02-06-2023 Evaluation note* Encounter Date Diagnosis Assessment Notes Treatment Notes Treatment Clinical Notes May, Primary insomnia (ICD-10 - F51.01) [facility] Other 01-26-2023 Evaluation note* Encounter Date Diagnosis Assessment Notes Treatment Notes Treatment Clinical Notes Apr, Hyperlipidemia (ICD-10 - E78.5) [facility] Other 12-06-2022 Evaluation note* Encounter Date Diagnosis Assessment Notes Treatment Notes Treatment Clinical Notes Mar, Type 2 diabetes mellitus with hyperglycemia (ICD-10 - E11.65) [facility] Other 10-19-2022 Evaluation note* Encounter Date Diagnosis Assessment Notes Treatment Notes Treatment Clinical Notes Jan, Primary hypertension (ICD-10 - I10) [facility] Other 09-13-2022 Evaluation note* Encounter Date Diagnosis Assessment Notes Treatment Notes Treatment Clinical Notes Dec, Type 2 diabetes mellitus with hyperglycemia (ICD-10 - E11.65) Managing type 2 diabetes material was published 1. Uncontrolled, Type 2 diabetes with A1c 7.7% 2. Blood glucose levels above target. According to [facility] cgm download 12/26/2021- 2: Avg glucose 211. >250-19%, >180-33%, 70-180-48%, <70-0%, <54-0%. CV 36.7%. Reviewed downlod with pt., readings above target fasting am/posptrandial. Recommend starting basal insulin. Sample toujeo given pt administered 20 units. Reviewed with pt how to tirate basal insulin according to fasting am glucose- pt verbalizes understanding. 3. Patient is alert, oriented and receptive to making changes or counseling. Notes: Seen for an assessment of current glucose pattern, changes in treatment plan, counseling and coordination of care related to diabetes, risks, and benefits of treatment, medications, and side effects. TOPICS REVIEWED: 1. Time was spent reviewing: a. Basic concepts of diabetes, progressive beta cell , concepts of basal/bolus/correc tive insulin requirements. Basal: The goal is fasting blood glucose of 90-130mg. IF fasting blood glucose starts to run under 100mg 3x's/ week, decrease dose by 10%. Bolus: The goal is to hold the blood glucose level steady meal to meal. If pt. is going to have increased physical activity after a meal, decrease the schedule meal dose prior to the activity by 30-50%. If pt. skips a meal do not take this dose. Correction: The goal is to correct an elevated glucose back into the 100-150mg range b. Nutrition: Concepts of healthy diet, encouraged to decrease saturated fat in diet and increase non-starchy vegetables and fruits in diet. BMI: Pt. needs to select one small change to decrease caloric intake or increase physical activity to help decrease weight. c. Correct treatment of hypoglycemia, carry a glucose source at all times on your person, in vehicles, and at bedside. Can use glucose tablets/4, four ounces of pop or juice equal to 15 G of carbohydrate. Blood glucose should be 100 mg/dl or higher when driving. d. ADA glucose goals for age and medical complexity reviewed e. Patient questions addressed 2. Activity/exercise: Encouraged to start any form of physical activity. Start low level and increase slowly to a minimal goal of 150 minutes/week. Limit activity to what is allowed by other issues such as cardiac, pulmonary or orthopedic restrictions. 3. Standards of care: Reminded to have an annual dilated eye exam, A1C every 3 months, urine testing for microalbumin once/year, check feet daily and report any cuts or sores that do not appear to be healing. 4. Meter: Plan to check blood glucose: Please check blood glucose levels 4 times/day. Back to back meals reveal effectiveness of bolus dosing. The blood glucose data is used to determine insulin doses and confirm symptoms for hypoglycemia and hyperglcyemia. The blood glucose data is used to determine insulin doses, and confirm symptoms for hypoglycemia and hyperglcyemia. 5. [facility]. Contact office if any issues or concerns with patterns of hypoglycemia, hyperglycemia, or diabetes medication issues. 6. Prescriptions: Sample toujeo x1 pen given. Sent order for toujeo to [facility]. Dec, Dietary counseling and surveillance (ICD-10 - Z71.3) Eat well, exercise well, be well: dietary and fitness guidelines material was published Dec, Hyperlipidemia (ICD-10 - E78.5) Managing your cholesterol material was published 08/2021 ldl 68- at target. 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, medical terminologist current use of insulin (ICD-10 - Z79.4) Dec, Peripheral neuropathy (ICD-10 - G62.9) Living with peripheral neuropathy material was published Dec, Vitamin B 12 deficiency (ICD-10 - E53.8) Good food sources of vitamin B12 material was published 08/2021 Vit b12 368 at target 13 Dec, 2021 BMI 28.0-28.9,adult (ICD-10 - Z68.28) Healthy eating on a budget material was published 6 pound weight loss from last visit, continue with weight loss efforts [email or web address] Other 08-17-2022 Progress note Author [facility] December 13, 2021 8:52am Note Date/Time December 13, 2021 8: 52am [facility] [address] [place] [address] General Surgery Progress Note Signed Patient: Kerry Gay MR#: [id number] : 1955 Acct:[id number] Age/Sex: 66 / F Adm Date: 2 Loc: Room: [address] [place] [address] Type: ADM INOo Attending Dr: Wilmer Vance MD Copies to: ~ Date of Service: 12/13/2021 Subjective Subjective HPI: Patient feels good this morning. She sitting up in her hospital bed eating an omelette. The pain that she had before surgery is gone. She feels much better about that. She not having any fevers chills or sweats. She not having any shortness of breath. Allergies & Medications Medications and Allergies Allergies Sulfa (Sulfonamide Antibiotics) Allergy (Verified 12/09/21 07:01) Vomiting Home Medications aspirin 81 mg tablet,delayed release 81 mg PO DAILY 02/09/21 [History Confirmed 12/09/21] cyanocobalamin (vitamin B-12) 1,000 mcg tablet (Vitamin B-12) 1,000 mcg PO DAILY02/09/21 [History Confirmed 12/09/21] docusate sodium 100 mg capsule (Stool Softener) 100 mg PO TID 02/09/21 [History Confirmed 12/09/21] empagliflozin 25 mg tablet (Jardiance) 25 mg PO DAILY 02/09/21 [History Confirmed 12/09/21] folic acid 1 mg tablet 1 mg PO DAILY 02/09/21 [History Confirmed 12/09/21] insulin lispro 100 unit/mL subcutaneous pen (Admelog SoloStar U-100 Insulin lispro) 1 sliding scale dose subcut USEASDIRECTD 02/09/21 [History Confirmed 12/09/21] lisinopril 10 mg tablet 10 mg PO DAILY 02/09/21 [History Confirmed 12/09/21] loratadine 10 mg tablet 10 mg PO DAILY 02/09/21 [History Confirmed 12/09/21] metformin 500 mg tablet 500 mg PO BID 02/09/21 [History Confirmed 12/09/21] metoclopramide HCl 10 mg tablet 10 mg PO DAILY 02/09/21 [History Confirmed 12/09/21] multivitamin 1 tab PO BID 02/09/21 [History Confirmed 12/09/21] nortriptyline 50 mg capsule 50 mg PO BID 02/09/21 [History Confirmed 12/09/21] omeprazole 20 mg tablet,delayed release 20 mg PO DAILY 02/09/21 [History Confirmed 12/09/21] pioglitazone 15 mg tablet 15 mg PO DAILY 02/09/21 [History Confirmed 12/09/21] semaglutide (Ozempic) 0.5 mg subcut QWEEK 02/09/21 [History Confirmed 12/09/21] simvastatin 20 mg tablet 20 mg PO DAILY 02/09/21 [History Confirmed 12/09/21] temazepam 30 mg capsule 30 mg PO QHS 02/09/21 [History Confirmed 12/09/21] Active Medications Acetaminophen (Acetaminophen 325 Mg Tablet) 650 mg PO Q6HR PRN PRN Reason: Pain Scale 1 - 3 or fever Stop: 12/09/22 11:18 Aspirin (Aspirin 81 Mg Tablet.) 81 mg PO DAILY [facility] Stop: 12/10/22 08:59 Last Admin: 12/12/21 10:33 Dose: Not Given Atorvastatin Calcium (Atorvastatin 10 Mg Tablet) 10 mg PO DAILY [facility] Stop: 12/10/22 08:59 Last Admin: 12/12/21 10:33 Dose: Not Given Cyanocobalamin (Cyanocobalamin 1,000 Mcg Tablet) 1,000 mcg PO DAILY [facility] Stop: 12/13/22 08:59 Dextrose (Dextrose 50% In Water 25 Gm/50 Ml Syringe) 0 gm IV-PUSH PRN PRN PRN Reason: Hypoglycemia Stop: 12/09/22 11:18 Docusate Sodium (Docusate 100 Mg Capsule) 100 mg PO TID [facility] Stop: 12/12/22 21:59 Last Admin: 12/12/21 22:26 Dose: 100 mg Enoxaparin Sodium (Enoxaparin 40 Mg/0.4 Ml Syringe) 40 mg SUBCUT DAILY@10 PARMJIT Stop: 12/10/22 09:59 Last Admin: 12/12/21 10:33 Dose: Not Given Glucose (Dextrose 40% Gel 15 Gm Tube) 0 gm PO PRN PRN PRN Reason: Hypoglycemia Stop: 12/09/22 11:18 Hydralazine HCl (Hydralazine 20 Mg/Ml Vial) 10 mg IV-PUSH Q4H PRN PRN Reason: Hypertension Stop: 12/09/22 11:18 Hydromorphone HCl (Hydromorphone 0.5 Mg/0.5 Ml Syringe) 1 mg IV-PUSH Q3H PRN PRN Reason: Pain Ceftriaxone Sodium (Rocephin) 1 gm in 50 mls @ 100 mls/hr IV Q24H [facility] Last Admin: 12/12/21 11:57 Dose: 100 mls/hr Sodium Chloride (0.9% Sodium Chloride 1,000 Ml) 1,000 mls @ 100 mls/hr IV .[id number] Stop: 12/12/22 00:00 Last Infusion: 12/13/21 03:35 Dose: Infused Lactated Ringer's (Lactated Ringers) 1,000 mls @ 20 mls/hr IV .Q24H ONE Stop: 12/13/21 11:13 Last Infusion: 12/13/21 03:31 Dose: Infused Insulin Aspart (Insulin Aspart 300 Units/3 Ml Insuln.Pen) 0 units SUBCUT TID.[facility]; Protocol Stop: 12/09/22 11:59 Last Admin: 12/13/21 08:07 Dose: 4 units Nortriptyline HCl (Nortriptyline 25 Mg Capsule) 50 mg PO BID [facility] Stop: 12/09/22 20:59 Last Admin: 12/12/21 22:27 Dose: 50 mg Omeprazole (Omeprazole 20 Mg Capsule.Dr) 20 mg PO DAILY [facility] Stop: 12/10/22 08:59 Last Admin: 12/12/21 10:33 Dose: Not Given Ondansetron HCl (Ondansetron 4 Mg/2 Ml Vial) 4 mg IV-PUSH Q6H PRN PRN Reason: Nausea And Vomiting Stop: 12/12/22 18:19 Pioglitazone HCl (Pioglitazone 15 Mg Tablet) 15 mg PO DAILY PARMJIT Stop: 12/10/22 08:59 Last Admin: 12/12/21 10:33 Dose: Not Given Potassium Chloride (Potassium Chloride Er 20 Meq Tab.Er.Prt) 40 meq PO DAILY PRN PRN Reason: Hypokalemia Stop: 12/09/22 11:18 Sodium Chloride (Sodium Chloride 0.9 % 10 Ml Syringe) 0 ml IV-PUSH PRN PRN PRN Reason: Flush Stop: 12/09/22 06:59 Last Admin: 12/11/21 23:10 Dose: 10 ml Sodium Chloride (Sodium Chloride 0.9 % 10 Ml Syringe) 0 ml IV-PUSH PRN PRN PRN Reason: Flush Stop: 12/12/22 11:13 Temazepam (Temazepam 15 Mg Capsule) 30 mg PO QHS [facility] Stop: 12/09/22 21:59 Last Admin: 12/12/21 22:27 Dose: 30 mg Tramadol HCl (Tramadol 50 Mg Tablet) 50 mg PO Q6H PRN PRN Reason: Pain Scale 4 - 7 Stop: 06/07/22 11:18 Last Admin: 12/12/21 22:26 Dose: 50 mg Exam Physical Exam Vital Signs: Temp Pulse Resp BP Pulse Ox O2 Del Method O2 Flow Rate 98.3 F 85 18 101/67 95 Nasal Cannula 3 12/13/21 00:25 12/13/21 08:00 12/13/21 08:00 12/13/21 08:00 12/13/21 08:00 12/13/21 08:00 12/13/21 08:00 Narrative: Patient is comfortable conversive not in any acute distress. Lungs are clear. Heart is regular rate rhythm. Abdomen is soft nontender nondistended. Incisions are clean dry and intact. Objective Pain Assessment Right Abdomen: Pain Description: Constant Pain Intensity: 7 Right Back: Pain Description: Constant, Aching and Soreness Pain Intensity: 5 Intake & Output 24 hour I&O: Intake & Output 12/12/21 12/13/21 12/13/21 23:59 07:59 15:59 Intake Total 1200 / 2200 2250 / 2250 Output Total 250 / 1375 550 / 550 Balance 950 / 825 1700 / 1700 Weight 84.8 kg Labs CBC & Chem 7: 12/13/21 05:58 12/13/21 05:58 Laboratory Results - Last 48 hrs. 12/13/21 06:50: POC Glucose 205 12/13/21 05:58: PHA Creatinine Clear 84.79, Sodium 137, Potassium 4.4, Chloride 105, Carbon Dioxide 24.6, BUN 12, Creatinine 0.75, Est GFR ( Amer) > 60, Est GFR (Non-Af Amer) > 60, Total Bilirubin 0.7, Direct Bilirubin 0.2, Indirect Bilirubin 0.5 12/13/21 05:58: Corrected WBC 9.4, Uncorrected WBC Count 9.4, RBC 4.41, Hgb 14.2, Hct 41.9, MCV 95.1, MCH 32.2, MCHC 33.9, RDW 12.9, Plt Count 178, MPV 9.3,Neut % (Auto) 90.4, Lymph % (Auto) 7.7, [place] % (Auto) 1.8, Eos % (Auto) 0.0, Baso % (Auto) 0.1, Neut # (Auto) 8.5 H, Lymph # (Auto) 0.7 L, [place] # (Auto) 0.2, Eos # (Auto) 0.0, Baso # (Auto) 0.0, Nucleated RBC % (auto) 0.0 12/12/21 20:42: POC Glucose 214 12/12/21 18:25: POC Glucose 178 12/12/21 15:26: POC Glucose 133 12/12/21 11:48: POC Glucose 167 12/12/21 07:47: PHA Creatinine Clear 83.77, Sodium 136, Potassium 3.8, Chloride 103, Carbon Dioxide 26.5, BUN 5 L, Creatinine 0.76, Est GFR ( Amer) > 60,Est GFR (Non-Af Amer) > 60, Total Bilirubin 0.7, Direct Bilirubin 0.2, Indirect Bilirubin 0.5, AST 22, Alkaline Phosphatase 92 12/12/21 07:47: PT 14.1 H, INR 1.3, APTT 30.0 12/12/21 07:47: Corrected WBC 7.2, Uncorrected WBC Count 7.2, RBC 4.40, Hgb 14.0, Hct 41.6, MCV 94.6, MCH 31.9, MCHC 33.7, RDW 12.9, Plt Count 160, MPV 9.4,Neut % (Auto) 72.7, Lymph % (Auto) 16.1, [place] % (Auto) 8.8, Eos % (Auto) 2.1, Baso % (Auto) 0.3, Neut # (Auto) 5.3, Lymph # (Auto) 1.2, [place] # (Auto) 0.6, Eos# (Auto) 0.2, Baso # (Auto) 0.0, Nucleated RBC % (auto) 0.1 12/12/21 06:47: POC Glucose 151 12/11/21 20:52: POC Glucose 167, POC Glucose Comment Glu2: cleaned meter 12/11/21 16:23: POC Glucose 212 12/11/21 13:37: PHA Creatinine Clear 76.88, Sodium 135 L, Potassium 4.0, Chloride 101, Carbon Dioxide 26.7, BUN 6 L, Creatinine 0.83, Est GFR ( Amer) > 60, Est GFR (Non-Af Amer) > 60, Glucose 204 H, Calcium 9.2, Total Bilirubin 0.3, AST 22, ALT 16, Alkaline Phosphatase 90, Total Protein 5.9 L, Albumin2.9 L, Globulin 3.0, Albumin/Globulin Ratio 1.0 12/11/21 13:37: Corrected WBC 6.1, Uncorrected WBC Count 6.1, RBC 4.32, Hgb 13.8, Hct 41.4, MCV 95.8, MCH 31.9, MCHC 33.3, RDW 12.9, Plt Count 137 L, MPV 9.0, Neut % (Auto) 66.8, Lymph % (Auto) 21.0, [place] % (Auto) 9.2, Eos % (Auto) 2.6, Baso % (Auto) 0.4, Neut # (Auto) 4.1, Lymph # (Auto) 1.3, [place] # (Auto) 0.6, Eos # (Auto) 0.2, Baso # (Auto) 0.0, Nucleated RBC % (auto) 0.1 12/11/21 11:05: POC Glucose 195 Microbiology Microbiology 12/09/21 12:42 Blood - Right Antecubital Blood Culture - Preliminary No Growth 3 Days 12/09/21 12:39 Blood - Left Hand Blood Culture - Preliminary No Growth 3 Days A&P - General Surgery Assessment/Plan (1) Right lateral abdominal pain: Plan: Status post laparoscopic cholecystectomy, calculus cholecystitis noted with a edematous gallbladder. Patient's preoperative symptoms are resolved. Appendix was normal I discussed with her events of surgery. I discussed with her postoperative careinstructions including activity restriction, incision care, dietary modificationfollow-up in my office. I will see her in the office in 1 week. Code(s): R10.9 - Unspecified abdominal pain Status: Acute (2) Cholelithiasis: Code(s): K80.20 - Calculus of gallbladder without cholecystitis without obstruction Status: Acute Documented By: Walter Montgomery, 12/13/2149 Signed By: <Electronically signed by DO Walter Montgomery> 12/13/2152 [facility] Work Phone: [phone] 172-148908-16-2022 Progress note Author Teresa Strong [facility] December 12, 2021 8:43pm Note Date/Time December 12, 2021 2: 49pm [facility] [address] [place] [address] Urology Progress Note Signed Patient: Kerry Gay MR#: [id number] : 1955 Acct:[id number] Age/Sex: 66 / F Adm Date: 2 Loc: Room: [address] [place] [address] Type: ADM INOo Attending Dr: Shira Stephen MD Copies to: ~ <Ingrid Sommers DO, RES - Last Filed: 12/12/21 14:51> Date of Service: 12/12/2021 Subjective <Ingrid Sommers DO, RES - Last Filed: 12/12/21 14:51> Subjective HPI: 66-year-old female with a PMH of diabetes, hypertension who presented to the ER on 12/09/21 with abrupt right lower quadrant abdominal pain radiating to back forthe past few days. Workup revealed WBC 12.9, afebrile, renal function, urine culture growing EColi and CT AP wo contrast noting small amount of air in the bladder in absence of hydronephrosis, stones or recent instrumentation. There was no inflammation around the bowels or appendix. Mild diverticulosis noted. Now with RUQ>RLQ pain, abdominal US showed cholelithiasis with gall bladder sludge. General surgery plans to take pt to OR for laparoscopy, cholecystectomy possible appendectomy due to symptoms. Urology was consulted due to findings of air in bladder and concern for colovesical fistula. Currently labs wnl, blood cultures negative. Pt endorses foamy urine but not specific air or feelings of passing gas within urinary stream. No stool, mucus or blood within urine. Does note increased urgency and frequency the past month but otherwise denies fever, chills, dysuria, recurrent UTIs, nausea, emesis, diarrhea or constipation. History of vaginal hysterectomy for heavy bleeding in her 30s. No history of urologic/abdominal procedures or history of diverticulitis or Crohn's. Interval: Patient was seen and examined laying comfortably in bed. Denies any acute events overnight. No passage of stool, mucus, or blood in the catheter. Exam <Ingrid Sommers DO, RES - Last Filed: 12/12/21 14:51> Physical Exam Vital Signs: Temp Pulse Resp BP Pulse Ox O2 Del Method 98.0 F 83 18 133/79 95 Room Air 12/12/21 12:00 12/12/21 12:00 12/12/21 12:00 12/12/21 12:00 12/12/21 12:00 12/12/21 12:00 Narrative: Patient alert oriented, no in acute distress, Clear breath sounds bilaterally, no wheezing or murmur appreciated Abdomen, soft, tenderness in right lower quadrant, costovertebral tenderness also present, Cardiovascular, regular rate and rhythm, no murmur appreciated Extremities no pedal edema appreciated Neurological, alert oriented x3, no focal neurological deficit present Skin, warm and dry. <Teresa Strong MD - Last Filed: 12/12/21 20:43> Physical Exam Narrative: Patient alert oriented, no in acute distress, Clear breath sounds bilaterally, no wheezing or murmur appreciated Abdomen, soft, tenderness in right lower quadrant, costovertebral tenderness also present, Cardiovascular, regular rate and rhythm, no murmur appreciated Extremities no pedal edema appreciated Neurological, alert oriented x3, no focal neurological deficit present Skin, warm and dry. : de la garza to gravity with clear yellow urine Objective <Ingrid Sommers DO, RES - Last Filed: 12/12/21 14:51> Pain Assessment Right Abdomen: Pain Description: Constant Pain Intensity: 7 Right Back: Pain Description: Constant, Aching and Soreness Pain Intensity: 5 Intake & Output 24 hour I&O: Intake & Output 12/11/21 12/12/21 12/12/21 23:59 07:59 15:59 Intake Total 600 / 1700 0 / 1000 1000 / 1000 Output Total 302 / 302 875 / 875 Balance 298 / 1398 -875 / 125 1000 / 125 Weight 85 kg Labs CBC & Chem 7: 12/12/21 07:47 12/12/21 07:47 Laboratory Results - Last 48 hrs. 12/12/21 11:48: POC Glucose 167 12/12/21 07:47: PHA Creatinine Clear 83.77, Sodium 136, Potassium 3.8, Chloride 103, Carbon Dioxide 26.5, BUN 5 L, Creatinine 0.76, Est GFR ( Amer) > 60,Est GFR (Non-Af Amer) > 60, Total Bilirubin 0.7, Direct Bilirubin 0.2, Indirect Bilirubin 0.5, AST 22, Alkaline Phosphatase 92 12/12/21 07:47: PT 14.1 H, INR 1.3, APTT 30.0 12/12/21 07:47: Corrected WBC 7.2, Uncorrected WBC Count 7.2, RBC 4.40, Hgb 14.0, Hct 41.6, MCV 94.6, MCH 31.9, MCHC 33.7, RDW 12.9, Plt Count 160, MPV 9.4,Neut % (Auto) 72.7, Lymph % (Auto) 16.1, [place] % (Auto) 8.8, Eos % (Auto) 2.1, Baso % (Auto) 0.3, Neut # (Auto) 5.3, Lymph # (Auto) 1.2, [place] # (Auto) 0.6, Eos# (Auto) 0.2, Baso # (Auto) 0.0, Nucleated RBC % (auto) 0.1 12/12/21 06:47: POC Glucose 151 12/11/21 20:52: POC Glucose 167, POC Glucose Comment Glu2: cleaned meter 12/11/21 16:23: POC Glucose 212 12/11/21 13:37: PHA Creatinine Clear 76.88, Sodium 135 L, Potassium 4.0, Chloride 101, Carbon Dioxide 26.7, BUN 6 L, Creatinine 0.83, Est GFR ( Amer) > 60, Est GFR (Non-Af Amer) > 60, Glucose 204 H, Calcium 9.2, Total Bilirubin 0.3, AST 22, ALT 16, Alkaline Phosphatase 90, Total Protein 5.9 L, Albumin 2.9 L, Globulin 3.0, Albumin/Globulin Ratio 1.0 12/11/21 13:37: Corrected WBC 6.1, Uncorrected WBC Count 6.1, RBC 4.32, Hgb 13.8, Hct 41.4, MCV 95.8, MCH 31.9, MCHC 33.3, RDW 12.9, Plt Count 137 L, MPV 9.0, Neut % (Auto) 66.8, Lymph % (Auto) 21.0, [place] % (Auto) 9.2, Eos % (Auto) 2.6, Baso % (Auto) 0.4, Neut # (Auto) 4.1, Lymph # (Auto) 1.3, [place] # (Auto) 0.6, Eos # (Auto) 0.2, Baso # (Auto) 0.0, Nucleated RBC % (auto) 0.1 12/11/21 11:05: POC Glucose 195 12/11/21 06:58: POC Glucose 172 12/10/21 21:10: POC Glucose 249 12/10/21 16:18: POC Glucose 176 Microbiology Microbiology 12/09/21 12:42 Blood - Right Antecubital Blood Culture - Preliminary No Growth 3 Days 12/09/21 12:39 Blood - Left Hand Blood Culture - Preliminary No Growth 3 Days Assessment/Plan <Ingrid Sommers, , RES - Last Filed: 12/12/21 14:51> Assessment/Plan (1) Pyelonephritis: Code(s): N12 - Tubulo-interstitial nephritis, not specified as acute or chronic (2) Emphysematous cystitis: Code(s): 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 Cont to monitor output and appearance. If there is concern for stool in urine or she does not improve while inpt, will obtain CT AP with PO or rectal contrast (no IV) to evaluate for fistula. Otherwise, will follow up outpatient given low riskfactors for fistula. -Cont abx treatment based on sensitivities at least 7-10 days for UTI <Teresa Strong MD - Last Filed: 12/12/21 20:43> Assessment/Plan (1) Pyelonephritis: (2) Emphysematous cystitis: Plan -Recommend de la garza placement for maximal decompression of UTI x 1 week. Cont to monitor output and appearance, low suspicion for fistula based on urine output. If there is concern for stool in urine or she does not improve while inpt, will obtain CT AP with PO or rectal contrast (no IV) to evaluate for fistula. Otherwise, will follow up outpatient given low risk factors for fistula. -Cont abx treatment based on sensitivities at least 7-10 days for UTI Documented By: Ingrid Sommers DO, RES 12/12/21 1446 Signed By: <Electronically signed by DO GAGE Sommers> 12/12/21 1451 <Electronically signed by Teresa Strong MD> 12/12/212042 [facility] Work Phone: [phone] 473-566508-16-2022 Progress note Author Shira Stephen [facility] December 12, 2021 1:20pm Note Date/Time December 12, 2021 1: 20pm [facility] [address] [place] [address] Hospitalist Progress Note Signed Patient: Kerry Gay MR#: [id number] : 1955 Acct:[id number] Age/Sex: 66 / F Adm Date: 2 Loc: Room: [address] [place] [address] Type: ADM INOo Attending Dr: Shira Stephen MD Copies to: ~ Date of Service: 12/12/2021 Subjective Subjective Narrative: Patient is 66-year-old female with past medical history of diabetes, hypertension presented to the ER with abrupt abdominal pain, patient was complaining of pain more in the right lower quadrant, radiating to the back, patient states that is been ongoing for the last couple of days, stated that shecould not tolerate it anymore so her advised her to come to ER. Patientdenies any nausea vomiting any burning urination, denies any fever chills, in the ER labs consistent with hemoglobin of 16.5, WBC 12.9, blood glucose 195, UA consistent with UTI, patient had ultrasoundAbdomen, which showed cholelithiasis and gallbladder sludge, diverticulosis and small amount of air within the urinary bladder, patient denies any history of recent catheterization, In the ER vitals were stable, patient was afebrile Interval history patient seen and examined, continues to complain of pain in the right upper quadrant, seen by general surgery, patient going for possible appendicectomy andcholecystectomy today, seen by urology as well for possible colovesical fistula,recommended continue monitoring, patient might need to follow-up with urology asoutpatient Exam Physical Exam Vital Signs: Temp Pulse Resp BP Pulse Ox O2 Del Method 98.0 F 83 18 133/79 95 Room Air 12/12/21 12:00 12/12/21 12:00 12/12/21 12:00 12/12/21 12:00 12/12/21 12:00 12/12/21 12:00 Narrative: Patient alert oriented, no in acute distress, Clear breath sounds bilaterally, no wheezing or murmur appreciated Abdomen, soft, tenderness in right lower quadrant, costovertebral tenderness also present, Cardiovascular, regular rate and rhythm, no murmur appreciated Extremities no pedal edema appreciated Neurological, alert oriented x3, no focal neurological deficit present Skin, warm and dry. Objective Lab Results CBC & Chem 7: 12/12/21 07:47 12/12/21 07:47 Microbiology Results Microbiology 12/09/21 12:42 Blood - Right Antecubital Blood Culture - Preliminary No Growth 3 Days 12/09/21 12:39 Blood - Left Hand Blood Culture - Preliminary No Growth 3 Days Meds Allergies and Active Meds Allergies Sulfa (Sulfonamide Antibiotics) Allergy (Verified 12/09/21 07:01) Vomiting Active Meds: Active Medications Generic Name Dose Route Start Last Admin Trade Name Freq PRN Reason Stop Dose Admin Acetaminophen 650 mg 12/09/21 11:19 Acetaminophen 325 Mg Tablet PO 12/09/22 11:18 Q6HR PRN Pain Scale 1 - 3 or fever Aspirin 81 mg 12/10/21 09:00 12/12/21 10:33 Aspirin 81 Mg Tablet. PO 12/10/22 08:59 Not Given DAILY [facility] Atorvastatin Calcium 10 mg 12/10/21 09:00 12/12/21 10:33 Atorvastatin 10 Mg Tablet PO 12/10/22 08:59 Not Given DAILY PARMJIT Dextrose 0 gm 12/09/21 11:19 Dextrose 50% In Water 25 Gm/50 Ml Syringe IV-PUSH 12/09/22 11:18 PRN PRN Hypoglycemia Enoxaparin Sodium 40 mg 12/10/21 10:00 12/12/21 10:33 Enoxaparin 40 Mg/0.4 Ml Syringe SUBCUT 12/10/22 09:59 Not Given DAILY@10 PARMJIT Glucose 0 gm 12/09/21 11:19 Dextrose 40% Gel 15 Gm Tube PO 12/09/22 11:18 PRN PRN Hypoglycemia Hydralazine HCl 10 mg 12/09/21 11:19 Hydralazine 20 Mg/Ml Vial IV-PUSH 12/09/22 11:18 Q4H PRN Hypertension Hydromorphone HCl 1 mg 12/10/21 11:23 12/11/21 23:10 Hydromorphone 1 Mg/Ml Syringe IV-PUSH 1 mg Q6H PRN Administration Pain Ceftriaxone Sodium 1 gm in 50 mls @ 100 mls/hr 12/10/21 10:30 12/12/21 11:57 Rocephin IV 100 mls/hr Q24H PARMJIT Administration Sodium Chloride 1,000 mls @ 100 mls/hr 12/12/21 00:00 12/12/21 10:32 0.9% Sodium Chloride 1,000 Ml IV 12/12/22 00:00 100 mls/hr .Q10H PARMJIT Administration Lactated Ringer's 1,000 mls @ 20 mls/hr 12/12/21 11:14 12/12/21 11:57 Lactated Ringers IV 12/13/21 11:13 20 mls/hr .Q24H ONE Administration Insulin Aspart 0 units 12/09/21 12:00 12/12/21 10:33 Insulin Aspart 300 Units/3 Ml Insuln.Pen SUBCUT 12/09/22 11:59 Not Given TID.WM.HS PARMJIT Protocol Lidocaine HCl 0.1 ml 12/12/21 11:14 Lidocaine 1% 50 Ml Vial INTRADERMA 12/12/21 17:15 PREOP PRN Venipuncture Nortriptyline HCl 50 mg 12/09/21 21:00 12/12/21 10:33 Nortriptyline 25 Mg Capsule PO 12/09/22 20:59 Not Given BID PARMJIT Omeprazole 20 mg 12/10/21 09:00 12/12/21 10:33 Omeprazole 20 Mg Capsule.Dr PO 12/10/22 08:59 Not Given DAILY PARMJIT Ondansetron HCl 4 mg 12/09/21 11:19 Ondansetron 4 Mg/2 Ml Vial IV-PUSH 12/09/22 11:18 Q8H PRN Nausea And Vomiting Pioglitazone HCl 15 mg 12/10/21 09:00 12/12/21 10:33 Pioglitazone 15 Mg Tablet PO 12/10/22 08:59 Not Given DAILY PARMJIT Potassium Chloride 40 meq 12/09/21 11:19 Potassium Chloride Er 20 Meq Tab.Er.Prt PO 12/09/22 11:18 DAILY PRN Hypokalemia Sodium Chloride 0 ml 12/09/21 07:00 12/11/21 23:10 Sodium Chloride 0.9 % 10 Ml Syringe IV-PUSH 12/09/22 06:59 10 ml PRN PRN Administration Flush Sodium Chloride 0 ml 12/12/21 11:14 Sodium Chloride 0.9 % 10 Ml Syringe IV-PUSH 12/12/22 11:13 PRN PRN Flush Temazepam 30 mg 12/09/21 22:00 12/11/21 21:20 Temazepam 15 Mg Capsule PO 12/09/22 21:59 30 mg QHS PARMJIT Administration Tramadol HCl 50 mg 12/09/21 11:19 12/11/21 21:20 Tramadol 50 Mg Tablet PO 06/07/22 11:18 50 mg Q6H PRN Administration Pain Scale 4 - 7 A&P - Hospitalist Assessment/Plan (1) Pyelonephritis: (2) Emphysematous cystitis: Plan Abdominal pain likely secondary to underlying cystitis/pyelonephritis, d doubt cholecystitis, patient LFTs are normal, , CT abdomen did not show any sign of cholecystitis, ultrasound gallbladder done as well, Patient continues to complain of abdominal pain General surgery consulted, patient went for possible appendectomy and cholecystectomy today Patient on Rocephin, urine culture E. 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/hemoconcentration continue tomonitor CBC daily : Improved History of diabetes, patient on metformin Jardiance insulin and pioglitazone, hold onto metformin and Jardiance for now : Blood sugars been better controlled History of hypertension, patient on lisinopril 10, blood pressure has been stable without lisinopril, continue to hold DVT prophylaxis Documented By: Shira Stephen MD 12/12/21 1319 Signed By: <Electronically signed by Shira Stephen MD> 12/12/21 1320 [facility] Work Phone: [phone] Progress note Author Walter Montgomery [facility] December 12, 2021 8:07am Note Date/Time December 12, 2021 8: 07am [facility] [address] [place] [address] General Surgery Progress Note Signed Patient: Kerry Gay MR#: [id number] : 1955 Acct:[id number] Age/Sex: 66 / F Adm Date: 2 Loc: Room: [address] [place] [address] Type: ADM INOo Attending Dr: Shira Stephen MD Copies to: ~ Date of Service: 12/12/2021 Subjective Subjective HPI: Patient said she is still having this right-sided abdominal pain. She says thatit is a 4 out of 10 but it is still considerably bothersome. She not having nausea or vomiting. She said that if it could possibly be her gallbladder she wants it removed. She not having any urinary difficulty. Allergies & Medications Medications and Allergies Allergies Sulfa (Sulfonamide Antibiotics) Allergy (Verified 12/09/21 07:01) Vomiting Home Medications aspirin 81 mg tablet,delayed release 81 mg PO DAILY 02/09/21 [History Confirmed 12/09/21] cyanocobalamin (vitamin B-12) 1,000 mcg tablet (Vitamin B-12) 1,000 mcg PO DAILY02/09/21 [History Confirmed 12/09/21] docusate sodium 100 mg capsule (Stool Softener) 100 mg PO TID 02/09/21 [History Confirmed 12/09/21] empagliflozin 25 mg tablet (Jardiance) 25 mg PO DAILY 02/09/21 [History Confirmed 12/09/21] folic acid 1 mg tablet 1 mg PO DAILY 02/09/21 [History Confirmed 12/09/21] insulin lispro 100 unit/mL subcutaneous pen (Admelog SoloStar U-100 Insulin lispro) 1 sliding scale dose subcut USEASDIRECTD 02/09/21 [History Confirmed 12/09/21] lisinopril 10 mg tablet 10 mg PO DAILY 02/09/21 [History Confirmed 12/09/21] loratadine 10 mg tablet 10 mg PO DAILY 02/09/21 [History Confirmed 12/09/21] metformin 500 mg tablet 500 mg PO BID 02/09/21 [History Confirmed 12/09/21] metoclopramide HCl 10 mg tablet 10 mg PO DAILY 02/09/21 [History Confirmed 12/09/21] multivitamin 1 tab PO BID 02/09/21 [History Confirmed 12/09/21] nortriptyline 50 mg capsule 50 mg PO BID 02/09/21 [History Confirmed 12/09/21] omeprazole 20 mg tablet,delayed release 20 mg PO DAILY 02/09/21 [History Confirmed 12/09/21] pioglitazone 15 mg tablet 15 mg PO DAILY 02/09/21 [History Confirmed 12/09/21] semaglutide (Ozempic) 0.5 mg subcut QWEEK 02/09/21 [History Confirmed 12/09/21] simvastatin 20 mg tablet 20 mg PO DAILY 02/09/21 [History Confirmed 12/09/21] temazepam 30 mg capsule 30 mg PO QHS 02/09/21 [History Confirmed 12/09/21] Active Medications Acetaminophen (Acetaminophen 325 Mg Tablet) 650 mg PO Q6HR PRN PRN Reason: Pain Scale 1 - 3 or fever Stop: 12/09/22 11:18 Aspirin (Aspirin 81 Mg Tablet.) 81 mg PO DAILY [facility] Stop: 12/10/22 08:59 Last Admin: 12/11/21 08:00 Dose: 81 mg Atorvastatin Calcium (Atorvastatin 10 Mg Tablet) 10 mg PO DAILY PARMJIT Stop: 12/10/22 08:59 Last Admin: 12/11/21 08:00 Dose: 10 mg Dextrose (Dextrose 50% In Water 25 Gm/50 Ml Syringe) 0 gm IV-PUSH PRN PRN PRN Reason: Hypoglycemia Stop: 12/09/22 11:18 Enoxaparin Sodium (Enoxaparin 40 Mg/0.4 Ml Syringe) 40 mg SUBCUT DAILY@10 PARMJIT Stop: 12/10/22 09:59 Last Admin: 12/11/21 09:19 Dose: Not Given Glucose (Dextrose 40% Gel 15 Gm Tube) 0 gm PO PRN PRN PRN Reason: Hypoglycemia Stop: 12/09/22 11:18 Hydralazine HCl (Hydralazine 20 Mg/Ml Vial) 10 mg IV-PUSH Q4H PRN PRN Reason: Hypertension Stop: 12/09/22 11:18 Hydromorphone HCl (Hydromorphone 1 Mg/Ml Syringe) 1 mg IV-PUSH Q6H PRN PRN Reason: Pain Last Admin: 12/11/21 23:10 Dose: 1 mg Ceftriaxone Sodium (Rocephin) 1 gm in 50 mls @ 100 mls/hr IV Q24H PARMJIT Last Infusion: 12/11/21 10:15 Dose: Infused Sodium Chloride (0.9% Sodium Chloride 1,000 Ml) 1,000 mls @ 100 mls/hr IV .[id number] Stop: 12/12/22 00:00 Last Admin: 12/12/21 00:10 Dose: 100 mls/hr Insulin Aspart (Insulin Aspart 300 Units/3 Ml Insuln.Pen) 0 units SUBCUT TID.WM.[facility]; Protocol Stop: 12/09/22 11:59 Last Admin: 12/11/21 21:21 Dose: 3 units Nortriptyline HCl (Nortriptyline 25 Mg Capsule) 50 mg PO BID [facility] Stop: 12/09/22 20:59 Last Admin: 12/11/21 21:20 Dose: 50 mg Omeprazole (Omeprazole 20 Mg Capsule.Dr) 20 mg PO DAILY [facility] Stop: 12/10/22 08:59 Last Admin: 12/11/21 08:00 Dose: 20 mg Ondansetron HCl (Ondansetron 4 Mg/2 Ml Vial) 4 mg IV-PUSH Q8H PRN PRN Reason: Nausea And Vomiting Stop: 12/09/22 11:18 Pioglitazone HCl (Pioglitazone 15 Mg Tablet) 15 mg PO DAILY [facility] Stop: 12/10/22 08:59 Last Admin: 12/11/21 08:00 Dose: 15 mg Potassium Chloride (Potassium Chloride Er 20 Meq Tab.Er.Prt) 40 meq PO DAILY PRN PRN Reason: Hypokalemia Stop: 12/09/22 11:18 Sodium Chloride (Sodium Chloride 0.9 % 10 Ml Syringe) 0 ml IV-PUSH PRN PRN PRN Reason: Flush Stop: 12/09/22 06:59 Last Admin: 12/11/21 23:10 Dose: 10 ml Temazepam (Temazepam 15 Mg Capsule) 30 mg PO QHS PARMJIT Stop: 12/09/22 21:59 Last Admin: 12/11/21 21:20 Dose: 30 mg Tramadol HCl (Tramadol 50 Mg Tablet) 50 mg PO Q6H PRN PRN Reason: Pain Scale 4 - 7 Stop: 06/07/22 11:18 Last Admin: 12/11/21 21:20 Dose: 50 mg Exam Physical Exam Vital Signs: Temp Pulse Resp BP Pulse Ox O2 Del Method 98 F 81 18 136/73 94 L Room Air 12/12/21 04:00 12/12/21 04:00 12/12/21 04:00 12/12/21 04:00 12/12/21 04:00 12/12/21 04:00 Narrative: Patient is comfortable conversive not in any acute distress. Lungs are clear. Heart is regular rate rhythm. Abdomen and left side is completely soft, patientdoes have mild to moderate tenderness in the right upper quadrant and right lateral abdomen. Less tenderness in the right lower quadrant. Objective Pain Assessment Right Abdomen: Pain Description: Constant Pain Intensity: 7 Right Back: Pain Description: Constant Pain Intensity: 7 Intake & Output 24 hour I&O: Intake & Output 12/11/21 12/12/21 12/12/21 23:59 07:59 15:59 Intake Total 600 / 1700 0 / 0 Output Total 302 / 302 875 / 875 Balance 298 / 1398 -875 / -875 Weight 85 kg Labs CBC & Chem 7: 12/11/21 13:37 12/11/21 13:37 Laboratory Results - Last 48 hrs. 12/12/21 06:47: POC Glucose 151 12/11/21 20:52: POC Glucose 167, POC Glucose Comment Glu2: cleaned meter 12/11/21 16:23: POC Glucose 212 12/11/21 13:37: PHA Creatinine Clear 76.88, Sodium 135 L, Potassium 4.0, Chloride 101, Carbon Dioxide 26.7, BUN 6 L, Creatinine 0.83, Est GFR ( Amer) > 60, Est GFR (Non-Af Amer) > 60, Glucose 204 H, Calcium 9.2, Total Bilirubin 0.3, AST 22, ALT 16, Alkaline Phosphatase 90, Total Protein 5.9 L, Albumin 2.9 L, Globulin 3.0, Albumin/Globulin Ratio 1.0 12/11/21 13:37: Corrected WBC 6.1, Uncorrected WBC Count 6.1, RBC 4.32, Hgb 13.8, Hct 41.4, MCV 95.8, MCH 31.9, MCHC 33.3, RDW 12.9, Plt Count 137 L, MPV 9.0, Neut % (Auto) 66.8, Lymph % (Auto) 21.0, [place] % (Auto) 9.2, Eos % (Auto) 2.6, Baso % (Auto) 0.4, Neut # (Auto) 4.1, Lymph # (Auto) 1.3, [place] # (Auto) 0.6, Eos # (Auto) 0.2, Baso # (Auto) 0.0, Nucleated RBC % (auto) 0.1 12/11/21 11:05: POC Glucose 195 12/11/21 06:58: POC Glucose 172 12/10/21 21:10: POC Glucose 249 12/10/21 16:18: POC Glucose 176 12/10/21 11:20: POC Glucose 268 12/10/21 06:50: PHA Creatinine Clear 75.03, Sodium 139, Potassium 4.0, Chloride 107, Carbon Dioxide 26.2, BUN 8 L, Creatinine 0.86, Est GFR ( Amer) > 60,Est GFR (Non-Af Amer) > 60, Glucose 153 H, Calcium 8.8 Microbiology Microbiology 12/09/21 12:42 Blood - Right Antecubital Blood Culture - Preliminary No Growth 2 Days 12/09/21 12:39 Blood - Left Hand Blood Culture - Preliminary No Growth 2 Days 12/09/21 08:35 Urine - Clean-Voided Midstream Urine Culture - Final Escherichia coli A&P - General Surgery Assessment/Plan (1) Right lateral abdominal pain: Plan: Intractable abdominal pain, cholelithiasis are noted and patient does have pain in right upper quadrant on exam. Not typical gallbladder symptoms however with intractable symptoms patient wants cholecystectomy. I discussed with her laparoscopy, evaluation of appendix, evaluation of gallbladder. Possible appendectomy and I would remove gallbladder unless other obvious and different etiology of symptoms were noted. We discussed risk of bleeding, infection, damage to intra-abdominal structures, possible major bile duct injury that couldrequire complete biliary reconstruction at a tertiary care center, possible bileleak. She would like to proceed with surgery. We will plan on this later today Code(s): R10.9 - Unspecified abdominal pain Status: Acute (2) Cholelithiasis: Code(s): K80.20 - Calculus of gallbladder without cholecystitis without obstruction Status: Acute Documented By: Walter Montgomery DO 12/12/21801 Signed By: <Electronically signed by DO Walter Montgomery> 12/12/21 0807 [facility] Work Phone: [phone]) 483-762108-15-2022 Consult note Author Teresa Strong [facility] December 11, 2021 9:25pm Note Date/Time December 11, 2021 8: 10pm [facility] [address] [place] [address] Urology Consult Note Signed Patient: Kerry Gay MR#: [id number] : 1955 Acct:[id number] Age/Sex: 66 / F Adm Date: 2 Loc: Room: [address] [place] [address] Type: ADM INOo Attending Dr: Shira Stephen MD Copies to: NON STAFF MD Teresa Kay MD~ History of Present Illness Consult Details Consult Date: 12/11/2021 Reason for Urology Consult: fistula Requesting Provider: Shira Stephen MD HPI: 66-year-old female with a PMH of diabetes, hypertension who presented to the ER on 12/09/21 with abrupt right lower quadrant abdominal pain radiating to back forthe past few days. Workup revealed WBC 12.9, afebrile, renal function, urine culture growing EColi and CT AP wo contrast noting small amount of air in the bladder in absence of hydronephrosis, stones or recent instrumentation. There was no inflammation around the bowels or appendix. Mild diverticulosis noted. Now with RUQ>RLQ pain, abdominal US showed cholelithiasis with gall bladder sludge. General surgery plans to take pt to OR for laparoscopy, cholecystectomy possible appendectomy due to symptoms. Urology was consulted due to findings of air in bladder and concern for colovesical fistula. Currently labs wnl, blood cultures negative. Pt endorses foamy urine but not specific air or feelings of passing gas within urinary stream. No stool, mucus or blood within urine. Does note increased urgency and frequency the past month but otherwise denies fever, chills, dysuria, recurrent UTIs, nausea, emesis, diarrhea or constipation. History of vaginal hysterectomy for heavy bleeding in her 30s. No history of urologic/abdominal procedures or history of diverticulitis or Crohn's. Review of Systems Review of Systems Review of systems: General: denies fever, chills, wt loss Skin: denies rash or jaundice HEENT: denies epistaxis or oral lesion Neurological: denies weakness or sensory change Respiratory: denies dyspnea or shortness of breath Cardiac: denies chest pain or palpitations Gastrointestinal: see HPI Urinary: see HPI Musculoskeletal: denies muscle or back pain Psychiatric: denies mood or affect disorder Hematologic: denies easy bleeding or bruising PMFSH Vaccinated for COVID-19?: No Medical History Diabetes Hypertension Surgical History H/O: hysterectomy Hx of tonsillectomy Family History Mother Heart disease Father Throat cancer Social History Smoking Status: Current every day smoker Tobacco Type: cigarettes Substance Use Type: None Meds Medications and Allergies Allergies Sulfa (Sulfonamide Antibiotics) Allergy (Verified 12/09/21 07:01) Vomiting Home Medications aspirin 81 mg tablet,delayed release 81 mg PO DAILY 02/09/21 [History Confirmed 12/09/21] cyanocobalamin (vitamin B-12) 1,000 mcg tablet (Vitamin B-12) 1,000 mcg PO DAILY02/09/21 [History Confirmed 12/09/21] docusate sodium 100 mg capsule (Stool Softener) 100 mg PO TID 02/09/21 [History Confirmed 12/09/21] empagliflozin 25 mg tablet (Jardiance) 25 mg PO DAILY 02/09/21 [History Confirmed 12/09/21] folic acid 1 mg tablet 1 mg PO DAILY 02/09/21 [History Confirmed 12/09/21] insulin lispro 100 unit/mL subcutaneous pen (Admelog SoloStar U-100 Insulin lispro) 1 sliding scale dose subcut USEASDIRECTD 02/09/21 [History Confirmed 12/09/21] lisinopril 10 mg tablet 10 mg PO DAILY 02/09/21 [History Confirmed 12/09/21] loratadine 10 mg tablet 10 mg PO DAILY 02/09/21 [History Confirmed 12/09/21] metformin 500 mg tablet 500 mg PO BID 02/09/21 [History Confirmed 12/09/21] metoclopramide HCl 10 mg tablet 10 mg PO DAILY 02/09/21 [History Confirmed 12/09/21] multivitamin 1 tab PO BID 02/09/21 [History Confirmed 12/09/21] nortriptyline 50 mg capsule 50 mg PO BID 02/09/21 [History Confirmed 12/09/21] omeprazole 20 mg tablet,delayed release 20 mg PO DAILY 02/09/21 [History Confirmed 12/09/21] pioglitazone 15 mg tablet 15 mg PO DAILY 02/09/21 [History Confirmed 12/09/21] semaglutide (Ozempic) 0.5 mg subcut QWEEK 02/09/21 [History Confirmed 12/09/21] simvastatin 20 mg tablet 20 mg PO DAILY 02/09/21 [History Confirmed 12/09/21] temazepam 30 mg capsule 30 mg PO QHS 02/09/21 [History Confirmed 12/09/21] Exam Physical Exam Vital Signs: Temp Pulse Resp BP Pulse Ox O2 Del Method 98.2 F 80 16 151/73 H 94 L Room Air 12/11/21 20:00 12/11/21 20:00 12/11/21 20:00 12/11/21 20:00 12/11/21 20:00 12/11/21 20:00 Narrative: General: The patient appears nontoxic. Does not appear ill. Skin: Warm, dry. No gross lesions are identified. HEENT: Normocephalic, atraumatic. Pupils equal, round, and reactive to light and accommodation. Oral mucosa moist. Respiratory: No increased respiratory effort. On room air Cardiac: Regular rate and rhythm GI: Abdomen is soft, RUQ/RLQ TTP : The bladder is nonpalpable. There is no CVA tenderness bilaterally. Musculoskeletal: Moves all extremities, normal strength Neurologic: Awake, alert, oriented Psychiatric: Affect normal to clinical condition Results Labs CBC & Chem 7: 12/11/21 13:37 12/11/21 13:37 Labs: Laboratory Results - Last 48 hrs. 12/11/21 16:23: POC Glucose 212 12/11/21 13:37: PHA Creatinine Clear 76.88, Sodium 135 L, Potassium 4.0, Chloride 101, Carbon Dioxide 26.7, BUN 6 L, Creatinine 0.83, Est GFR ( Amer) > 60, Est GFR (Non-Af Amer) > 60, Glucose 204 H, Calcium 9.2, Total Bilirubin 0.3, AST 22, ALT 16, Alkaline Phosphatase 90, Total Protein 5.9 L, Albumin 2.9 L, Globulin 3.0, Albumin/Globulin Ratio 1.0 12/11/21 13:37: Corrected WBC 6.1, Uncorrected WBC Count 6.1, RBC 4.32, Hgb 13.8, Hct 41.4, MCV 95.8, MCH 31.9, MCHC 33.3, RDW 12.9, Plt Count 137 L, MPV 9.0, Neut % (Auto) 66.8, Lymph % (Auto) 21.0, [place] % (Auto) 9.2, Eos % (Auto) 2.6, Baso % (Auto) 0.4, Neut # (Auto) 4.1, Lymph # (Auto) 1.3, [place] # (Auto) 0.6, Eos # (Auto) 0.2, Baso # (Auto) 0.0, Nucleated RBC % (auto) 0.1 12/11/21 11:05: POC Glucose 195 12/11/21 06:58: POC Glucose 172 12/10/21 21:10: POC Glucose 249 12/10/21 16:18: POC Glucose 176 12/10/21 11:20: POC Glucose 268 12/10/21 06:50: PHA Creatinine Clear 75.03, Sodium 139, Potassium 4.0, Chloride 107, Carbon Dioxide 26.2, BUN 8 L, Creatinine 0.86, Est GFR ( Amer) > 60,Est GFR (Non-Af Amer) > 60, Glucose 153 H, Calcium 8.8 12/10/21 06:50: Corrected WBC 7.4, Uncorrected WBC Count 7.4, RBC 4.38, Hgb 14.0, Hct 41.5, MCV 94.9, MCH 32.0, MCHC 33.7, RDW 13.1, Plt Count 141 L D, MPV 9.3, Neut % (Auto) 63.3, Lymph % (Auto) 24.1, [place] % (Auto) 10.5, Eos % (Auto) 1.8, Baso % (Auto) 0.3, Neut # (Auto) 4.7, Lymph # (Auto) 1.8, [place] # (Auto) 0.8, Eos # (Auto) 0.1, Baso # (Auto) 0.0, Nucleated RBC % (auto) 0.0 12/10/21 06:36: POC Glucose 152 12/09/21 20:29: POC Glucose 141 12/09/21 10:25: COVID-19 Clin Com Negative Microbiology Microbiology: 12/09/21 12:42 Blood - Right Antecubital Blood Culture - Preliminary No Growth 2 Days 12/09/21 12:39 Blood - Left Hand Blood Culture - Preliminary No Growth 2 Days 12/09/21 08:35 Urine - Clean-Voided Midstream Urine Culture - Final Escherichia coli 12/09/21 10:25 Nasal SARS Antigen (LFIA) - Final Imaging CT scan - abdomen: report reviewed and image reviewed CT scan - pelvis: report reviewed and image reviewed Additional studies: CT ABDOMEN AND PELVIS WITHOUT CONTRAST COMPARISON: None CLINICAL DATA: Right flank pain. Spiral images were obtained through the abdomen and pelvis without contrast.? This CT exam was performed using one or more following dose reduction techniques: Automated exposure control, adjustment of the mA and/or kV accordingto patient size, or use of iterative reconstruction technique. Limited cuts through the lung bases show dependent atelectasis. Assessment of the intra-abdominal organs is slightly limited by the absence of contrast.? There is a small amount of gallbladder sludge and/or tiny stones.? There is no pericholecystic inflammation.? The liver, spleen and pancreas show no significant findings.? There is thickening of the adrenal limbs, greater on the left.? No renal calculi or hydronephrosis are identified.? No ureteral dilatation or stones are seen. There is atherosclerotic plaque at the aorta and iliac arteries.? There are small lymph nodes.? No ascites is present.? The small bowel loops are not dilated.? There is air and stool within the colon, greater on the right.? There is subtle dextroscoliotic curvature and endplate spurring.? There is also minor facet disease. Images through the pelvis show normal caliber small bowel loops.? There is no appendiceal inflammation.? There is a small amount of distal colonic stool.? There are a few diverticula.? No active inflammation is seen.? The uterus is surgically absent.? The urinary bladder is not adequately distended for assessment however it does appear to contain a small amount of air.? Correlationis recommended as to any recent instrumentation.? There is no ascites. CT/CT abdomen pelvis wo con IMPRESSION: ? CHOLELITHIASIS AND/OR SLUDGE. ? NO BOWEL OR URINARY TRACT OBSTRUCTION. ? DIVERTICULOSIS. ? SMALL AMOUNT OF AIR WITHIN THE URINARY BLADDER.? CORRELATION IS RECOMMENDED TO RECENT CATHETERIZATION. Assessment/Plan (1) Right lateral abdominal pain: Code(s): R10.9 - Unspecified abdominal pain (2) Emphysematous cystitis: Code(s): N30.80 - Other cystitis without hematuria Plan 66 yo F with DM2 who is admitted with severe right sided abdominal pain. She is stable, nontoxic. CT AP did not note any bowel inflammation or appendicitis however due to persistent pain and gallbladder sludge on US, plans for lap karla, possible appendectomy tomorrow with General Surgery. Urology was consulted due to incidental findings of small air in bladder. EColi UTI also noted, undergoing treatment. Overall pt is asymptomatic with no risk factors for colovesical fistula, imaging otherwise not concerning, questionable pneumaturia although more consistent with just bubbles in toilet after urination. Given her lack of significant symptoms, it's possible air is secondary to UTI given length of urgency symptoms, although her labs are remarkable normal. Discussed workup for colovesical fistula including CT AP with PO or rectal contast (no IV) to evaluate for fistula. We discussed doing this inpatient if she does not improve or her urine is concerning for fistula. Otherwise, we will let her recover from her acute abdominal pain and consider workup outpatient if she develops another UTI or other symptoms. Pt would like to address this outpatient if possible . -Recommend de la garza placement for maximal decompression of UTI x 1 week. Cont to monitor output and appearance. If there is concern for stool in urine or she does not improve while inpt, will obtain CT AP with PO or rectal contrast (no IV) to evaluate for fistula. Otherwise, will follow up outpatient given low riskfactors for fistula. -Cont abx treatment based on sensitivities at least 7-10 days for UTI Documented By: Teresa Strong MD 12/11/212009 Signed By: <Electronically signed by Teresa Strong MD> 12/11/216 [facility] Work Phone: [phone] Consult note Author Walter Montgomery [facility] December 11, 2021 3:18pm Note Date/Time December 11, 2021 3: 18pm [facility] [address] [place] [address] General Surgery Consult Note Signed Patient: Kerry Gay MR#: [id number] : 1955 Acct:[id number] Age/Sex: 66 / F Adm Date: 2 Loc: Room: [address] [place] [address] Type: ADM INOo Attending Dr: Shira Stephen MD Copies to: NON STAFF MD Walter Kay,DO~ History of Present Illness Date of consult: 12/11/2021 Requesting/Attending Provider: Shira Stephen MD History of present illness: Patient came to hospital with right back pain that went around to her right side/lower quadrant. She said that this started on Saturday or . It was stabbing. It was considerable and since it was not going away her boyfriend made her come to the hospital, she was probably not going to come and get it checked out but he made her. She is not having any nausea or vomiting. She wasnot having any fevers chills or sweats. She does not get exacerbation of this pain with eating. She points to her right side. She said what does make the pain worse is moving. If she tries to stand up or go to the bathroom it will bebothersome. She feels like it is inside and not at the muscles or bones themselves. She not having any diarrhea or constipation. She has not been having any blood in the stool. She has not been having any frequency urgency or dysuria. She does have a history of passing air in her urine, she said this been going on for quite a while. Sometimes she might see a little bit of sediment. She never sees any stool in the urine. She does not have frequent urinary tract infections. She ate today without any problems. She has an appetite. Patient is a smoker. Surgical history of hysterectomy with removal of cervix Review of Systems Review of Systems All other systems reviewed & are negative unless noted below or in HPI PMFSH Vaccinated for COVID-19?: No Medical History Diabetes Hypertension Surgical History H/O: hysterectomy Hx of tonsillectomy Family History Mother Heart disease Father Throat cancer Social History Smoking Status: Current every day smoker Tobacco Type: cigarettes Substance Use Type: None Allergies & Medications Medications and Allergies Allergies Sulfa (Sulfonamide Antibiotics) Allergy (Verified 12/09/21 07:01) Vomiting Home Medications aspirin 81 mg tablet,delayed release 81 mg PO DAILY 02/09/21 [History Confirmed 12/09/21] cyanocobalamin (vitamin B-12) 1,000 mcg tablet (Vitamin B-12) 1,000 mcg PO DAILY02/09/21 [History Confirmed 12/09/21] docusate sodium 100 mg capsule (Stool Softener) 100 mg PO TID 02/09/21 [History Confirmed 12/09/21] empagliflozin 25 mg tablet (Jardiance) 25 mg PO DAILY 02/09/21 [History Confirmed 12/09/21] folic acid 1 mg tablet 1 mg PO DAILY 02/09/21 [History Confirmed 12/09/21] insulin lispro 100 unit/mL subcutaneous pen (Admelog SoloStar U-100 Insulin lispro) 1 sliding scale dose subcut USEASDIRECTD 02/09/21 [History Confirmed 12/09/21] lisinopril 10 mg tablet 10 mg PO DAILY 02/09/21 [History Confirmed 12/09/21] loratadine 10 mg tablet 10 mg PO DAILY 02/09/21 [History Confirmed 12/09/21] metformin 500 mg tablet 500 mg PO BID 02/09/21 [History Confirmed 12/09/21] metoclopramide HCl 10 mg tablet 10 mg PO DAILY 02/09/21 [History Confirmed 12/09/21] multivitamin 1 tab PO BID 02/09/21 [History Confirmed 12/09/21] nortriptyline 50 mg capsule 50 mg PO BID 02/09/21 [History Confirmed 12/09/21] omeprazole 20 mg tablet,delayed release 20 mg PO DAILY 02/09/21 [History Confirmed 12/09/21] pioglitazone 15 mg tablet 15 mg PO DAILY 02/09/21 [History Confirmed 12/09/21] semaglutide (Ozempic) 0.5 mg subcut QWEEK 02/09/21 [History Confirmed 12/09/21] simvastatin 20 mg tablet 20 mg PO DAILY 02/09/21 [History Confirmed 12/09/21] temazepam 30 mg capsule 30 mg PO QHS 02/09/21 [History Confirmed 12/09/21] Active Medications Acetaminophen (Acetaminophen 325 Mg Tablet) 650 mg PO Q6HR PRN PRN Reason: Pain Scale 1 - 3 or fever Stop: 12/09/22 11:18 Aspirin (Aspirin 81 Mg Tablet.) 81 mg PO DAILY [facility] Stop: 12/10/22 08:59 Last Admin: 12/11/21 08:00 Dose: 81 mg Atorvastatin Calcium (Atorvastatin 10 Mg Tablet) 10 mg PO DAILY [facility] Stop: 12/10/22 08:59 Last Admin: 12/11/21 08:00 Dose: 10 mg Dextrose (Dextrose 50% In Water 25 Gm/50 Ml Syringe) 0 gm IV-PUSH PRN PRN PRN Reason: Hypoglycemia Stop: 12/09/22 11:18 Enoxaparin Sodium (Enoxaparin 40 Mg/0.4 Ml Syringe) 40 mg SUBCUT DAILY@10 [facility] Stop: 12/10/22 09:59 Last Admin: 12/11/21 09:19 Dose: Not Given Glucose (Dextrose 40% Gel 15 Gm Tube) 0 gm PO PRN PRN PRN Reason: Hypoglycemia Stop: 12/09/22 11:18 Hydralazine HCl (Hydralazine 20 Mg/Ml Vial) 10 mg IV-PUSH Q4H PRN PRN Reason: Hypertension Stop: 12/09/22 11:18 Hydromorphone HCl (Hydromorphone 1 Mg/Ml Syringe) 1 mg IV-PUSH Q6H PRN PRN Reason: Pain Last Admin: 12/11/21 06:42 Dose: 1 mg Ceftriaxone Sodium (Rocephin) 1 gm in 50 mls @ 100 mls/hr IV Q24H [facility] Last Infusion: 12/11/21 10:15 Dose: Infused Insulin Aspart (Insulin Aspart 300 Units/3 Ml Insuln.Pen) 0 units SUBCUT TID.WM.HS [facility]; Protocol Stop: 12/09/22 11:59 Last Admin: 12/11/21 11:33 Dose: 3 units Nortriptyline HCl (Nortriptyline 25 Mg Capsule) 50 mg PO BID [facility] Stop: 12/09/22 20:59 Last Admin: 12/11/21 08:00 Dose: 50 mg Omeprazole (Omeprazole 20 Mg Capsule.Dr) 20 mg PO DAILY [facility] Stop: 12/10/22 08:59 Last Admin: 12/11/21 08:00 Dose: 20 mg Ondansetron HCl (Ondansetron 4 Mg/2 Ml Vial) 4 mg IV-PUSH Q8H PRN PRN Reason: Nausea And Vomiting Stop: 12/09/22 11:18 Pioglitazone HCl (Pioglitazone 15 Mg Tablet) 15 mg PO DAILY [facility] Stop: 12/10/22 08:59 Last Admin: 12/11/21 08:00 Dose: 15 mg Potassium Chloride (Potassium Chloride Er 20 Meq Tab.Er.Prt) 40 meq PO DAILY PRN PRN Reason: Hypokalemia Stop: 12/09/22 11:18 Sodium Chloride (Sodium Chloride 0.9 % 10 Ml Syringe) 0 ml IV-PUSH PRN PRN PRN Reason: Flush Stop: 12/09/22 06:59 Last Admin: 12/10/21 18:24 Dose: 10 ml Temazepam (Temazepam 15 Mg Capsule) 30 mg PO QHS [facility] Stop: 12/09/22 21:59 Last Admin: 12/10/21 21:14 Dose: 30 mg Tramadol HCl (Tramadol 50 Mg Tablet) 50 mg PO Q6H PRN PRN Reason: Pain Scale 4 - 7 Stop: 02/09/23 11:18 Last Admin: 12/11/21 08:00 Dose: 50 mg Exam Physical Exam Vital Signs: Temp Pulse Resp BP Pulse Ox O2 Del Method 98.0 F 79 18 113/73 95 Room Air 12/11/21 11:32 12/11/21 11:32 12/11/21 11:32 12/11/21 11:32 12/11/21 11:32 12/11/21 11:32 Narrative: Patient is conversive and pleasant. She is totally nontoxic. Her head is atraumatic normocephalic. Her eyes are without a scleral icterus. Neck no anterior posterior cervical lymphadenopathy. Heart is regular rate rhythm. Lungs are clear. Abdomen is soft its mildly tender in the right upper quadrant more so than the right lower quadrant there is no tenderness whatsoever on the left abdomen. Extremities no edema. There is no costovertebral angle tenderness. Results Pain Assessment Right Abdomen: Pain Intensity: 4 Right Back: Pain Description: Constant Pain Intensity: 7 Intake and Output 24 hour I&O: Intake & Output 12/10/21 12/11/21 12/11/21 23:59 07:59 15:59 Intake Total 1320 / 3020 450 / 1100 650 / 1100 Balance 1320 / 3020 450 / 1100 650 / 1100 Weight 85.4 kg Labs CBC & Chem 7: 12/11/21 13:37 12/11/21 13:37 Laboratory Results - last 72 hr 12/11/21 13:37: PHA Creatinine Clear 76.88, Sodium 135 L, Potassium 4.0, Chloride 101, Carbon Dioxide 26.7, BUN 6 L, Creatinine 0.83, Est GFR ( Amer) > 60, Est GFR (Non-Af Amer) > 60, Glucose 204 H, Calcium 9.2, Total Bilirubin 0.3, AST 22, ALT 16, Alkaline Phosphatase 90, Total Protein 5.9 L, Albumin 2.9 L, Globulin 3.0, Albumin/Globulin Ratio 1.0 12/11/21 13:37: Corrected WBC 6.1, Uncorrected WBC Count 6.1, RBC 4.32, Hgb 13.8, Hct 41.4, MCV 95.8, MCH 31.9, MCHC 33.3, RDW 12.9, Plt Count 137 L, MPV 9.0,Neut % (Auto) 66.8, Lymph % (Auto) 21.0, [place] % (Auto) 9.2, Eos % (Auto) 2.6, Baso % (Auto) 0.4, Neut # (Auto) 4.1, Lymph # (Auto) 1.3, [place] # (Auto) 0.6, Eos# (Auto) 0.2, Baso # (Auto) 0.0, Nucleated RBC % (auto) 0.1 12/11/21 11:05: POC Glucose 195 12/11/21 06:58: POC Glucose 172 12/10/21 21:10: POC Glucose 249 12/10/21 16:18: POC Glucose 176 12/10/21 11:20: POC Glucose 268 12/10/21 06:50: PHA Creatinine Clear 75.03, Sodium 139, Potassium 4.0, Chloride 107, Carbon Dioxide 26.2, BUN 8 L, Creatinine 0.86, Est GFR ( Amer) > 60,Est GFR (Non-Af Amer) > 60, Glucose 153 H, Calcium 8.8 12/10/21 06:50: Corrected WBC 7.4, Uncorrected WBC Count 7.4, RBC 4.38, Hgb 14.0, Hct 41.5, MCV 94.9, MCH 32.0, MCHC 33.7, RDW 13.1, Plt Count 141 L D, MPV 9.3, Neut % (Auto) 63.3, Lymph % (Auto) 24.1, [place] % (Auto) 10.5, Eos % (Auto) 1.8, Baso % (Auto) 0.3, Neut # (Auto) 4.7, Lymph # (Auto) 1.8, [place] # (Auto) 0.8, Eos # (Auto) 0.1, Baso # (Auto) 0.0, Nucleated RBC % (auto) 0.0 12/10/21 06:36: POC Glucose 152 12/09/21 20:29: POC Glucose 141 12/09/21 16:31: POC Glucose 236, POC Glucose Comment Glu2: cleaned meter 12/09/21 12:42: Troponin I High Sens 5 12/09/21 12:42: Lactic Acid 1.7 12/09/21 11:59: POC Glucose 176, POC Glucose Comment Glu2: cleaned meter 12/09/21 10:25: SARS Antigen (LFIA) Negative 12/09/21 10:25: COVID-19 Clin Com Negative 12/09/21 08:50: PHA Creatinine Clear 78.16, Sodium 139, Potassium 3.9, Chloride 101, Carbon Dioxide 27.4, BUN 8 L, Creatinine 0.81, Est GFR ( Amer) > 60,Est GFR (Non-Af Amer) > 60, Glucose 185 H, Calcium 10.1, Total Bilirubin 0.7, AST 24, ALT 22, Alkaline Phosphatase 103 H, Total Protein 7.2, Albumin 3.9, Globulin 3.3, Albumin/Globulin Ratio 1.2 12/09/21 08:50: Corrected WBC 12.9 H, Uncorrected WBC Count 12.9 H, RBC 5.25 H, Hgb 16.5 H, Hct 49.8 H, MCV 94.9, MCH 31.5, MCHC 33.1, RDW 13.1, Plt Count 208, MPV 9.5, Neut % (Auto) 79.8, Lymph % (Auto) 9.6, [place] % (Auto) 9.1, Eos % (Auto)1.1, Baso % (Auto) 0.4, Neut # (Auto) 10.3 H, Lymph # (Auto) 1.2, [place] # (Auto) 1.2 H, Eos # (Auto) 0.1, Baso # (Auto) 0.1, Nucleated RBC % (auto) 0.0 12/09/21 08:35: Urine Color Yellow, Urine Appearance Cloudy A, Urine pH 5.5, Ur Specific [place] 1.030, Urine Protein Negative, Urine Glucose (UA) >=1000 H, Urine Ketones Negative, Urine Occult Blood Trace H, Urine Nitrite Positive H, Urine Bilirubin Negative, Urine Urobilinogen Normal, Ur Leukocyte Esterase 2+ H,Urine RBC 5-9 H, Urine WBC 50-100 H, Ur Squamous Epith Cells 10-19 H, Urine Bacteria 4+ H, Hyaline Casts None seen, Other Casts None seen Microbiology Microbiology - Results from entire visit 12/09/21 12:42 Blood - Right Antecubital Blood Culture - Preliminary No Growth 2 Days 12/09/21 12:39 Blood - Left Hand Blood Culture - Preliminary No Growth 2 Days 12/09/21 08:35 Urine - Clean-Voided Midstream Urine Culture - Final Escherichia coli 12/09/21 10:25 Nasal SARS Antigen (LFIA) - Final A&P - General Surgery (1) Pyelonephritis: Code(s): N12 - Tubulo-interstitial nephritis, not specified as acute or chronic Status: Acute (2) Right lateral abdominal pain: Code(s): R10.9 - Unspecified abdominal pain Status: Acute (3) Cholelithiasis: Plan: Right back/flank pain/right upper quadrant pain with uncertain etiology. Patient has gallstones. Her story is not consistent with calculus cholecystitishowever on exam she does have some tenderness in the right upper quadrant. On ultrasound and on CAT scan there was stones but no gallbladder wall thickening or pericholecystic fluid. The appendix is completely normal. This was easily visualized and had no thickening and was completely air-filled. Patient does have symptoms of pneumaturia, possibly has a longstanding colovesical fistula. Patient does not get frequent urinary tract infections. If patient had an emphysematous cystitis she would be exceedingly sick, that is basically a gangrenous infection of the bladder. I had a discussion with patient regarding all findings. She has had some improvement in her symptoms. She has been eating today. Plan will be to recheck labs tomorrow and n.p.o. after midnight. She continues to have symptomsespecially in her right upper quadrant we will proceed with laparoscopy tomorrowand cholecystectomy, possible appendectomy etc. She thinks that is very reasonable. Code(s): K80.20 - Calculus of gallbladder without cholecystitis without obstruction Status: Acute Documented By: Walter Montgomery DO 12/11/211511 Signed By: <Electronically signed by DO Walter Montgomery> 12/11/211517 [facility] Work Phone: [phone] 119-316008-15-2022 Progress note Author Shira Stephen [facility] December 11, 2021 1:33pm Note Date/Time December 11, 2021 1: 30pm [facility] [address] [place] [address] Hospitalist Progress Note Signed Patient: Kerry Gay MR#: [id number] : 1955 Acct:[id number] Age/Sex: 66 / F Adm Date: 2 Loc: 3T Room: [address] [place] [address] Type: ADM INOo Attending Dr: Shira Stephen MD Copies to: ~ Date of Service: 12/11/2021 Subjective Subjective Narrative: Patient is 66-year-old female with past medical history of diabetes, hypertension presented to the ER with abrupt abdominal pain, patient was complaining of pain more in the right lower quadrant, radiating to the back, patient states that is been ongoing for the last couple of days, stated that shecould not tolerate it anymore so her advised her to come to ER. Patientdenies any nausea vomiting any burning urination, denies any fever chills, in the ER labs consistent with hemoglobin of 16.5, WBC 12.9, blood glucose 195, UA consistent with UTI, patient had ultrasoundAbdomen, which showed cholelithiasis and gallbladder sludge, diverticulosis and small amount of air within the urinary bladder, patient denies any history of recent catheterization, In the ER vitals were stable, patient was afebrile Interval history Patient seen and examined, patient continues to Continues to complain of abdominal pain, complaining of pain in the right upper right lower quadrant radiating to the back, patient is already on antibiotics, today is day 3, had positive Alarcon sign today, LFTs were normal, will consult general surgery,, Exam Physical Exam Vital Signs: Temp Pulse Resp BP Pulse Ox O2 Del Method 98.0 F 79 18 113/73 95 Room Air 12/11/21 11:32 12/11/21 11:32 12/11/21 11:32 12/11/21 11:32 12/11/21 11:32 12/11/21 11:32 Narrative: Patient alert oriented, no in acute distress, Clear breath sounds bilaterally, no wheezing or murmur appreciated Abdomen, soft, tenderness in right lower quadrant, costovertebral tenderness also present, Cardiovascular, regular rate and rhythm, no murmur appreciated Extremities no pedal edema appreciated Neurological, alert oriented x3, no focal neurological deficit present Skin, warm and dry. Objective Lab Results CBC & Chem 7: 12/10/21 06:50 12/10/21 06:50 Microbiology Results Microbiology 12/09/21 12:42 Blood - Right Antecubital Blood Culture - Preliminary No Growth 2 Days 12/09/21 12:39 Blood - Left Hand Blood Culture - Preliminary No Growth 2 Days 12/09/21 08:35 Urine - Clean-Voided Midstream Urine Culture - Final Escherichia coli Meds Allergies and Active Meds Allergies Sulfa (Sulfonamide Antibiotics) Allergy (Verified 12/09/21 07:01) Vomiting Active Meds: Active Medications Generic Name Dose Route Start Last Admin Trade Name Sarkis PRN Reason Stop Dose Admin Acetaminophen 650 mg 12/09/21 11:19 Acetaminophen 325 Mg Tablet PO 12/09/22 11:18 Q6HR PRN Pain Scale 1 - 3 or fever Aspirin 81 mg 12/10/21 09:00 12/11/21 08:00 Aspirin 81 Mg Tablet.Dr PO 12/10/22 08:59 81 mg DAILY PARMJIT Administration Atorvastatin Calcium 10 mg 12/10/21 09:00 12/11/21 08:00 Atorvastatin 10 Mg Tablet PO 12/10/22 08:59 10 mg DAILY PARMJIT Administration Dextrose 0 gm 12/09/21 11:19 Dextrose 50% In Water 25 Gm/50 Ml Syringe IV-PUSH 12/09/22 11:18 PRN PRN Hypoglycemia Enoxaparin Sodium 40 mg 12/10/21 10:00 12/11/21 09:19 Enoxaparin 40 Mg/0.4 Ml Syringe SUBCUT 12/10/22 09:59 Not Given DAILY@10 PARMJIT Glucose 0 gm 12/09/21 11:19 Dextrose 40% Gel 15 Gm Tube PO 12/09/22 11:18 PRN PRN Hypoglycemia Hydralazine HCl 10 mg 12/09/21 11:19 Hydralazine 20 Mg/Ml Vial IV-PUSH 12/09/22 11:18 Q4H PRN Hypertension Hydromorphone HCl 1 mg 12/10/21 11:23 12/11/21 06:42 Hydromorphone 1 Mg/Ml Syringe IV-PUSH 1 mg Q6H PRN Administration Pain Ceftriaxone Sodium 1 gm in 50 mls @ 100 mls/hr 12/10/21 10:30 12/11/21 10:15 Rocephin IV Infused Q24H PARMJIT Infusion Insulin Aspart 0 units 12/09/21 12:00 12/11/21 11:33 Insulin Aspart 300 Units/3 Ml Insuln.Pen SUBCUT 12/09/22 11:59 3 units TID.WM.HS PARMJIT Administration Protocol Nortriptyline HCl 50 mg 12/09/21 21:00 12/11/21 08:00 Nortriptyline 25 Mg Capsule PO 12/09/22 20:59 50 mg BID PARMJIT Administration Omeprazole 20 mg 12/10/21 09:00 12/11/21 08:00 Omeprazole 20 Mg Capsule. PO 12/10/22 08:59 20 mg DAILY PARMJIT Administration Ondansetron HCl 4 mg 12/09/21 11:19 Ondansetron 4 Mg/2 Ml Vial IV-PUSH 12/09/22 11:18 Q8H PRN Nausea And Vomiting Pioglitazone HCl 15 mg 12/10/21 09:00 12/11/21 08:00 Pioglitazone 15 Mg Tablet PO 12/10/22 08:59 15 mg DAILY PARMJIT Administration Potassium Chloride 40 meq 12/09/21 11:19 Potassium Chloride Er 20 Meq Tab.Er.Prt PO 12/09/22 11:18 DAILY PRN Hypokalemia Sodium Chloride 0 ml 12/09/21 07:00 12/10/21 18:24 Sodium Chloride 0.9 % 10 Ml Syringe IV-PUSH 12/09/22 06:59 10 ml PRN PRN Administration Flush Temazepam 30 mg 12/09/21 22:00 12/10/21 21:14 Temazepam 15 Mg Capsule PO 12/09/22 21:59 30 mg QHS PARMJIT Administration Tramadol HCl 50 mg 12/09/21 11:19 12/11/21 08:00 Tramadol 50 Mg Tablet PO 06/07/22 11:18 50 mg Q6H PRN Administration Pain Scale 4 - 7 A&P - Hospitalist Assessment/Plan (1) Pyelonephritis: (2) Emphysematous cystitis: Plan Abdominal pain likely secondary to underlying cystitis/pyelonephritis, d doubt cholecystitis, patient LFTs are normal, , CT abdomen did not show any sign of cholecystitis, ultrasound gallbladder done as well, Patient continues to complain of abdominal pain Will call general surgery Get labs today. Patient on Rocephin, urine culture E. coli sensitive to Rocephin Leukocytosis resolved, will get labs today Will DC fluids since patient has been tolerating p.o. well Polycythemia secondary to history of tobacco abuse/hemoconcentration continue tomonitor CBC daily : Improved History of diabetes, patient on metformin Jardiance insulin and pioglitazone, hold onto metformin and Jardiance for now : Blood sugars been better controlled History of hypertension, patient on lisinopril 10, blood pressure has been stable without lisinopril, continue to hold DVT prophylaxis Documented By: Shira Stephen MD 12/11/21 1326 Signed By: <Electronically signed by Shira Stephen MD> 12/11/21 1333 [facility] Work Phone: [phone] Progress note Author Shira Stephen [facility] December 10, 2021 11:26am Note Date/Time December 10, 2021 11 :26am [facility] [address] [place] [address] Hospitalist Progress Note Signed Patient: Kerry Gay MR#: [id number] : 1955 Acct:[id number] Age/Sex: 66 / F Adm Date: 2 Loc: Room: [address] [place] [address] Type: ADM IN Attending Dr: Shira Stephen MD Copies to: ~ Date of Service: 12/10/2021 Subjective Subjective Narrative: Patient is 66-year-old female with past medical history of diabetes, hypertension presented to the ER with abrupt abdominal pain, patient was complaining of pain more in the right lower quadrant, radiating to the back, patient states that is been ongoing for the last couple of days, stated that shecould not tolerate it anymore so her advised her to come to ER. Patientdenies any nausea vomiting any burning urination, denies any fever chills, in the ER labs consistent with hemoglobin of 16.5, WBC 12.9, blood glucose 195, UA consistent with UTI, patient had ultrasoundAbdomen, which showed cholelithiasis and gallbladder sludge, diverticulosis and small amount of air within the urinary bladder, patient denies any history of recent catheterization, In the ER vitals were stable, patient was afebrile Interval history Patient seen and examined, no overnight issues reported, patient continues to complain of pain which is more in right lower quadrant, costovertebral tenderness present, patient has been afebrile Exam Physical Exam Vital Signs: Temp Pulse Resp BP Pulse Ox O2 Del Method 98.2 F 88 18 134/78 94 L Room Air 12/10/21 11:23 12/10/21 11:23 12/10/21 11:23 12/10/21 11:23 12/10/21 11:23 12/10/21 11:23 Narrative: Patient alert oriented, no in acute distress, Clear breath sounds bilaterally, no wheezing or murmur appreciated Abdomen, soft, tenderness in right lower quadrant, costovertebral tenderness also present, Cardiovascular, regular rate and rhythm, no murmur appreciated Extremities no pedal edema appreciated Neurological, alert oriented x3, no focal neurological deficit present Skin, warm and dry. Objective Lab Results CBC & Chem 7: 12/10/21 06:50 12/10/21 06:50 Microbiology Results Microbiology 12/09/21 08:35 Urine - Clean-Voided Midstream Urine Culture - Preliminary Gram Negative Bacilli 12/09/21 10:25 Nasal SARS Antigen (LFIA) - Final Meds Allergies and Active Meds Allergies Sulfa (Sulfonamide Antibiotics) Allergy (Verified 12/09/21 07:01) Vomiting Active Meds: Active Medications Generic Name Dose Route Start Last Admin Trade Name Sarkis PRN Reason Stop Dose Admin Acetaminophen 650 mg 12/09/21 11:19 Acetaminophen 325 Mg Tablet PO 12/09/22 11:18 Q6HR PRN Pain Scale 1 - 3 or fever Aspirin 81 mg 12/10/21 09:00 12/10/21 08:43 Aspirin 81 Mg Tablet.Dr PO 12/10/22 08:59 81 mg DAILY PARMJIT Administration Atorvastatin Calcium 10 mg 12/10/21 09:00 12/10/21 08:43 Atorvastatin 10 Mg Tablet PO 12/10/22 08:59 10 mg DAILY PARMJIT Administration Dextrose 0 gm 12/09/21 11:19 Dextrose 50% In Water 25 Gm/50 Ml Syringe IV-PUSH 12/09/22 11:18 PRN PRN Hypoglycemia Enoxaparin Sodium 40 mg 12/10/21 10:00 12/10/21 09:00 Enoxaparin 40 Mg/0.4 Ml Syringe SUBCUT 12/10/22 09:59 Not Given DAILY@10 PARMJIT Glucose 0 gm 12/09/21 11:19 Dextrose 40% Gel 15 Gm Tube PO 12/09/22 11:18 PRN PRN Hypoglycemia Hydralazine HCl 10 mg 12/09/21 11:19 Hydralazine 20 Mg/Ml Vial IV-PUSH 12/09/22 11:18 Q4H PRN Hypertension Sodium Chloride 1,000 mls @ 75 mls/hr 12/09/21 11:30 12/10/21 09:59 0.9% Sodium Chloride 1,000 Ml IV 12/09/22 11:29 75 mls/hr .[id number] PARMJIT Administration Ceftriaxone Sodium 1 gm in 50 mls @ 100 mls/hr 12/10/21 10:30 12/10/21 09:59 Rocephin IV 100 mls/hr Q24H PARMJIT Administration Insulin Aspart 0 units 12/09/21 12:00 12/10/21 11:21 Insulin Aspart 300 Units/3 Ml Insuln.Pen SUBCUT 12/09/22 11:59 7 units TID.WM.HS PARMJIT Administration Protocol Morphine Sulfate 1 mg 12/09/21 17:48 12/10/21 08:41 Morphine Sulfate 2 Mg/Ml Vial IV-PUSH 1 mg Q4H PRN Administration pain Nortriptyline HCl 50 mg 12/09/21 21:00 12/10/21 08:43 Nortriptyline 25 Mg Capsule PO 12/09/22 20:59 50 mg BID PARMJIT Administration Omeprazole 20 mg 12/10/21 09:00 12/10/21 08:43 Omeprazole 20 Mg Capsule. PO 12/10/22 08:59 20 mg DAILY PARMJIT Administration Ondansetron HCl 4 mg 12/09/21 11:19 Ondansetron 4 Mg/2 Ml Vial IV-PUSH 12/09/22 11:18 Q8H PRN Nausea And Vomiting Pioglitazone HCl 15 mg 12/10/21 09:00 12/10/21 08:43 Pioglitazone 15 Mg Tablet PO 12/10/22 08:59 15 mg DAILY PARMJIT Administration Potassium Chloride 40 meq 12/09/21 11:19 Potassium Chloride Er 20 Meq Tab.Er.Prt PO 12/09/22 11:18 DAILY PRN Hypokalemia Sodium Chloride 0 ml 12/09/21 07:00 12/10/21 08:41 Sodium Chloride 0.9 % 10 Ml Syringe IV-PUSH 12/09/22 06:59 10 ml PRN PRN Administration Flush Temazepam 30 mg 12/09/21 22:00 12/09/21 21:17 Temazepam 15 Mg Capsule PO 12/09/22 21:59 30 mg QHS PARMJIT Administration Tramadol HCl 50 mg 12/09/21 11:19 12/10/21 10:02 Tramadol 50 Mg Tablet PO 06/07/22 11:18 50 mg Q6H PRN Administration Pain Scale 4 - 7 A&P - Hospitalist Assessment/Plan (1) Pyelonephritis: (2) Emphysematous cystitis: Plan Abdominal pain likely secondary to underlying cystitis/pyelonephritis, d doubt cholecystitis, patient LFTs are normal, , CT abdomen did not show any sign of cholecystitis, ultrasound gallbladder done as well, Patient on Rocephin Urine culture growing gram-negative bacilli Final cultures pending Gentle hydration Leukocytosis resolved Polycythemia secondary to history of tobacco abuse/hemoconcentration continue tomonitor CBC daily : Improved History of diabetes, patient on metformin Jardiance insulin and pioglitazone, hold onto metformin and Jardiance for now : Blood sugars been better controlled History of hypertension, patient on lisinopril 10, blood pressure on the borderline lower side, will gradually resume DVT prophylaxis Documented By: Shira Stephen MD 12/10/211123 Signed By: <Electronically signed by Shira Stephen MD> 12/10/21 1126 [facility] Work Phone: [phone] History and physical note Author Shira Stephen [facility] December 09, 2021 11:38am Note Date/Time December 09, 2021 11 :38am [facility] [address] [place] [address] Hospitalist H&P Signed Patient: Kerry Gay MR#: [id number] : 1955 Acct:[id number] Age/Sex: 66 / F Adm Date: 2 Loc: ER Room: Type: [facility] ER Attending Dr: Copies to: NON STAFF MD Tray Kay, DO~ HPI DATE OF EXAMINATION: 12/09/21 CHIEF COMPLAINT: Abdominal pain HISTORY OF PRESENT ILLNESS: Patient is 66-year-old female with past medical history of diabetes, hypertension presented to the ER with abrupt abdominal pain, patient was complaining of pain more in the right lower quadrant, radiating to the back, patient states that is been ongoing for the last couple of days, stated that shecould not tolerate it anymore so her advised her to come to ER. Patientdenies any nausea vomiting any burning urination, denies any fever chills, in the ER labs consistent with hemoglobin of 16.5, WBC 12.9, blood glucose 195, UA consistent with UTI, patient had ultrasoundAbdomen, which showed cholelithiasis and gallbladder sludge, diverticulosis and small amount of air within the urinary bladder, patient denies any history of recent catheterization, In the ER vitals were stable, patient was afebrile Review of Systems Review of Systems All other systems reviewed & are negative unless noted below or in HPI PMFSH Vaccinated for COVID-19?: No Medical History Diabetes Hypertension Surgical History H/O: hysterectomy Hx of tonsillectomy Family History Mother Heart disease Father Throat cancer Social History Smoking Status: Current every day smoker Tobacco Type: cigarettes Substance Use Type: None Meds Medications and Allergies Allergies Sulfa (Sulfonamide Antibiotics) Allergy (Verified 12/09/21 07:01) Vomiting Home Medications aspirin 81 mg tablet,delayed release 81 mg PO DAILY 02/09/21 [History Confirmed 02/09/21] cyanocobalamin (vitamin B-12) 1,000 mcg tablet (Vitamin B-12) 1,000 mcg PO DAILY02/09/21 [History Confirmed 02/09/21] docusate sodium 100 mg capsule (Stool Softener) 100 mg PO TID 02/09/21 [History Confirmed 02/09/21] empagliflozin 25 mg tablet (Jardiance) 25 mg PO DAILY 02/09/21 [History Confirmed 02/09/21] folic acid 1 mg tablet 1 mg PO DAILY 02/09/21 [History Confirmed 02/09/21] insulin lispro 100 unit/mL subcutaneous pen (Admelog SoloStar U-100 Insulin lispro) 1 sliding scale dose subcut USEASDIRECTD 02/09/21 [History Confirmed 02/09/21] lisinopril 10 mg tablet 10 mg PO DAILY 02/09/21 [History Confirmed 02/09/21] loratadine 10 mg tablet 10 mg PO DAILY 02/09/21 [History Confirmed 02/09/21] metformin 500 mg tablet 500 mg PO BID 02/09/21 [History Confirmed 02/09/21] metoclopramide HCl 10 mg tablet 10 mg PO DAILY 02/09/21 [History Confirmed 02/09/21] multivitamin 1 tab PO BID 02/09/21 [History Confirmed 02/09/21] nortriptyline 50 mg capsule 50 mg PO BID 02/09/21 [History Confirmed 02/09/21] omeprazole 20 mg tablet,delayed release 20 mg PO DAILY 02/09/21 [History Confirmed 02/09/21] pioglitazone 15 mg tablet 15 mg PO DAILY 02/09/21 [History Confirmed 02/09/21] semaglutide (Ozempic) 0.5 mg subcut QWEEK 02/09/21 [History Confirmed 02/09/21] simvastatin 20 mg tablet 20 mg PO DAILY 02/09/21 [History Confirmed 02/09/21] temazepam 30 mg capsule 30 mg PO QHS 02/09/21 [History Confirmed 02/09/21] Exam Physical Exam Vital Signs: Temp Pulse Resp BP Pulse Ox O2 Del Method 97.6 F 99 H 20 128/77 97 Room Air 12/09/21 07:00 12/09/21 07:00 12/09/21 07:00 12/09/21 07:00 12/09/21 07:00 12/09/21 07:00 Narrative: Patient alert oriented, no in acute distress, was seen and examined in the ER Clear breath sounds bilaterally, no wheezing or murmur appreciated Abdomen, soft, tenderness in right lower and right upper quadrant, costovertebral tenderness also present, Cardiovascular, regular rate and rhythm, no murmur appreciated Extremities no pedal edema appreciated Neurological, alert oriented x3, no focal neurological deficit present Skin, warm and dry. Results Lab Results Labs: Laboratory Last Values Corrected WBC 12.9 X10E3/uL (3.8-11.6) H 12/09/21 08:50 Uncorrected WBC Count 12.9 x10E3/uL (4.5-11.0) H 12/09/21 08:50 RBC 5.25 x10E6/uL (3.60-5.00) H 12/09/21 08:50 Hgb 16.5 g/dL (11.8-15.4) H 12/09/21 08:50 Hct 49.8 % (34.0-46.4) H 12/09/21 08:50 MCV 94.9 fl (80-100) 12/09/21 08:50 MCH 31.5 pg (24.7-34.3) 12/09/21 08:50 MCHC 33.1 g/dL (32.0-35.0) 12/09/21 08:50 RDW 13.1 % (11.9-15.3) 12/09/21 08:50 Plt Count 208 x10E3/uL (150-450) 12/09/21 08:50 MPV 9.5 fl (6.3-10.7) 12/09/21 08:50 Neut % (Auto) 79.8 % (.) 12/09/21 08:50 Lymph % (Auto) 9.6 % (.) 12/09/21 08:50 [place] % (Auto) 9.1 % (.) 12/09/21 08:50 Eos % (Auto) 1.1 % (.) 12/09/21 08:50 Baso % (Auto) 0.4 % (.) 12/09/21 08:50 Neut # (Auto) 10.3 x10E3/uL (1.8-7.7) H 12/09/21 08:50 Lymph # (Auto) 1.2 x10E3/uL (1.00-4.8) 12/09/21 08:50 [place] # (Auto) 1.2 x10E3/uL (0.0-0.8) H 12/09/21 08:50 Eos # (Auto) 0.1 x10E3/uL (0.0-0.45) 12/09/21 08:50 Baso # (Auto) 0.1 x10E3/uL (0.0-0.2) 12/09/21 08:50 Nucleated RBC % (auto) 0.0 % (0-0.5) 12/09/21 08:50 PHA Creatinine Clear 78.16 12/09/21 08:50 Sodium 139 mmol/L (136-146) 12/09/21 08:50 Potassium 3.9 mmol/L (3.5-5.1) 12/09/21 08:50 Chloride 101 mmol/L (95-114) 12/09/21 08:50 Carbon Dioxide 27.4 mmol/L (22.0-30.0) 12/09/21 08:50 BUN 8 mg/dL (9-23) L 12/09/21 08:50 Creatinine 0.81 mg/dL (0.44-1.03) 12/09/21 08:50 Est GFR ( Amer) > 60 mL/Min 12/09/21 08:50 Est GFR (Non-Af Amer) > 60 mL/Min 12/09/21 08:50 Glucose 185 mg/dL (70-100) H 12/09/21 08:50 Calcium 10.1 mg/dL (8.2-10.2) 12/09/21 08:50 Total Bilirubin 0.7 mg/dL (0.3-1.2) 12/09/21 08:50 AST 24 U/L (10-42) 12/09/21 08:50 ALT 22 U/L (10-60) 12/09/21 08:50 Alkaline Phosphatase 103 U/L (32-92) H 12/09/21 08:50 Total Protein 7.2 gm/dL (6.1-7.9) 12/09/21 08:50 Albumin 3.9 gm/dL (3.2-5.5) 12/09/21 08:50 Globulin 3.3 gm/dL 12/09/21 08:50 Albumin/Globulin Ratio 1.2 12/09/21 08:50 Urine Color Yellow (Yellow) 12/09/21 08:35 Urine Appearance Cloudy (Clear) A 12/09/21 08:35 Urine pH 5.5 (5.0-9.0) 12/09/21 08:35 Ur Specific [place] 1.030 (1.001-1.030) 12/09/21 08:35 Urine Protein Negative mg/dL (Negative) 12/09/21 08:35 Urine Glucose (UA) >=1000 mg/dL (Normal) H 12/09/21 08:35 Urine Ketones Negative (Negative) 12/09/21 08:35 Urine Occult Blood Trace (Negative) H 12/09/21 08:35 Urine Nitrite Positive (Negative) H 12/09/21 08:35 Urine Bilirubin Negative (Negative) 12/09/21 08:35 Urine Urobilinogen Normal mg/dL (Normal) 12/09/21 08:35 Ur Leukocyte Esterase 2+ (Negative) H 12/09/21 08:35 Urine RBC 5-9 /HPF (0-4) H 12/09/21 08:35 Urine WBC 50-100 /HPF (0-4) H 12/09/21 08:35 Ur Squamous Epith Cells 10-19 /HPF (0-2) H 12/09/21 08:35 Urine Bacteria 4+ (None Seen) H 12/09/21 08:35 Hyaline Casts None seen /LPF (0-1) 12/09/21 08:35 Other Casts None seen /LPF (None Seen) 12/09/21 08:35 SARS Antigen (LFIA) Negative (Negative) 12/09/21 10:25 Microbiology Results Micro: Microbiology - Results from entire visit 12/09/21 10:25 Nasal SARS Antigen (LFIA) - Final A&P - Hospitalist Assessment/Plan (1) Pyelonephritis: (2) Emphysematous cystitis: Plan Abdominal pain likely secondary to underlying cystitis/pyelonephritis, d doubt cholecystitis, patient LFTs are normal, patient does have tenderness in the right upper quadrant, CT abdomen did not show any sign of Couriel cystitis, check ultrasound gallbladder We will start Rocephin for now Gentle hydration Monitor cultures Leukocytosis likely secondary to above Polycythemia secondary to history of tobacco abuse/hemoconcentration continue tomonitor CBC daily History of diabetes, patient on metformin Jardiance insulin and pioglitazone, hold onto metformin and Jardiance for now History of hypertension, patient on lisinopril 10, blood pressure on the borderline lower side, will gradually resume DVT prophylaxis Documented By: Shira Stephen MD 12/09/21 113 Signed By: <Electronically signed by Shira Stephen MD> 12/09/21 1138 [facility] Work Phone: [phone] Evaluation note* Encounter Date Diagnosis Assessment Notes Treatment Notes Treatment Clinical Notes Sep, Medicare annual wellness visit, initial (ICD-10 - Z00.00) Personalized health advice was given to the beneficiary including a written plan for screenings discussed and provided. Advanced care planning reviewed and/or information given as requested. The above visit was performed by Loren PICKARD, under direct supervision of Dr. Crispin Looney DO. Document reviewed and amended by provider signed below. Patient denies any complaints or concerns today. Denies any symptoms of shortness of breath, chest pains, palpitations. Reports good exercise tolerance overall. She does see [facility] diabetes clinic for management of her diabetes however we check an A1c today and it is higher than typical at 7.5%. I encouraged her to work on her diet and she will follow-up with diabetes clinic in December at her regular appointment. She does see gynecology and has an appointment coming up. They are managing her Paps and mammograms. She had a colonoscopy in 2016 and should be due in 2026.Routine lab work was done in August and is unremarkable. Exam today is unremarkable. Sep, Type 2 diabetes mellitus with hyperglycemia (ICD-10 - E11.65) Continue management per diabetes clinic. Sep, Encounter for smoking cessation counseling (ICD-10 - Z71.6) Patient was previously trialed on Wellbutrin but states she got side effects of lightheadedness while on it. She states she has used Chantix in the past and it seemed to work very well for her. She is motivated to stop smoking but has made little progress on her own. I have had difficulty getting varenicline since Chantix was removed from the market but we will attempt to get her started back on this. [id number] Other 03-14-2022 Evaluation note* Encounter Date Diagnosis Assessment Notes Treatment Notes Treatment Clinical Notes Jun, Type 2 diabetes mellitus with hyperglycemia (ICD-10 - E11.65) Managing type 2 diabetes material was published 1. Controlled, Type 2 diabetes with A1c 6% 2. Blood glucose levels improved. According to [employer] cgm download 06/26/2021- 2: Avg glucose 132. >250-0%, >180-4%, 70-180-96%, <70-0%, <54-0%. CV 18.4%. Reviewed downlod with pt, overall glucose pattern stable. No incidence of hypoglcyemia. 3. Patient is alert, oriented and receptive to making changes or counseling. Notes: Seen for an assessment of current glucose pattern, changes in treatment plan, counseling and coordination of care related to diabetes, risks, and benefits of treatment, medications, and side effects. TOPICS REVIEWED: 1. Time was spent reviewing: a. Basic concepts of diabetes, progressive beta cell , concepts of basal/bolus/correc tive insulin requirements. Basal: The goal is fasting blood glucose of 90-130mg. IF fasting blood glucose starts to run under 100mg 3x's/ week, decrease dose by 10%. Bolus: The goal is to hold the blood glucose level steady meal to meal. If pt. is going to have increased physical activity after a meal, decrease the schedule meal dose prior to the activity by 30-50%. If pt. skips a meal do not take this dose. Correction: The goal is to correct an elevated glucose back into the 100-150mg range b. Nutrition: Concepts of healthy diet, encouraged to decrease saturated fat in diet and increase non-starchy vegetables and fruits in diet. BMI: Pt. needs to select one small change to decrease caloric intake or increase physical activity to help decrease weight. c. Correct treatment of hypoglycemia, carry a glucose source at all times on your person, in vehicles, and at bedside. Can use glucose tablets/4, four ounces of pop or juice equal to 15 G of carbohydrate. Blood glucose should be 100 mg/dl or higher when driving. d. ADA glucose goals for age and medical complexity reviewed e. Patient questions addressed 2. Activity/exercise: Encouraged to start any form of physical activity. Start low level and increase slowly to a minimal goal of 150 minutes/week. Limit activity to what is allowed by other issues such as cardiac, pulmonary or orthopedic restrictions. 3. Standards of care: Reminded to have an annual dilated eye exam, A1C every 3 months, urine testing for microalbumin once/year, check feet daily and report any cuts or sores that do not appear to be healing. 4. Meter: Plan to check blood glucose: Please check blood glucose levels 4 times/day. Back to back meals reveal effectiveness of bolus dosing. The blood glucose data is used to determine insulin doses and confirm symptoms for hypoglycemia and hyperglcyemia. The blood glucose data is used to determine insulin doses, and confirm symptoms for hypoglycemia and hyperglcyemia. 5. [facility] 6 [facility]. Contact office if any issues or concerns with patterns of hypoglycemia, hyperglycemia, or diabetes medication issues. 6. Prescriptions: Will call when needed. Jun, Dietary counseling and surveillance (ICD-10 - Z71.3) Eat well, exercise well, be well: dietary and fitness guidelines material was published Jun, Hyperlipidemia (ICD-10 - E78.5) Managing your cholesterol material was published 11/2020 ldl 86, trig. 201. On statin Jun, HTN (hypertension) (ICD-10 - I10) Qs to ask: hypertension material was published Jun, residential current use of insulin (ICD-10 - Z79.4) Jun, Peripheral neuropathy (ICD-10 - G62.9) Living with peripheral neuropathy material was published Jun, Vitamin B 12 deficiency (ICD-10 - E53.8) Good food sources of vitamin B12 material was published 11/2020 Vit b12 946 Jun, Albuminuria (ICD-10 - R80.9) Protein, urine material was published 10/2019 m/a cr ratio 67, 11/2020 m/a cr ratio 12- improved. Reviewed importance of glucose/bp control to prevent further nephropathy. Jun, BMI 30.0-30.9,adult (ICD-10 - Z68.30) Healthy eating on a budget material was published 2 pound weight loss from last visit, continue with weight loss efforts Jun, Callus of foot (ICD-10 - L84) f/u with Dr. Limon [facility] Other 03-07-2022 Evaluation note* Encounter Date Diagnosis Assessment Notes Treatment Notes Treatment Clinical Notes Jun, Sleep apnea, unspecified type (ICD-10 - G47.30) Patient reports symptoms, observations, and has physical findings that are all suggestive of underlying sleep disordered breathing. We will proceed with in laboratory sleep study for further evaluation, if obstructive sleep apnea is confirmed treatment with positive pressure therapy will be recommended and initiated, the importance of weight loss and improving sleep hygiene was also discussed. The possibility of insomnia associated with obstructive sleep apnea would also be evaluated if needed [facility] Other 01-10-2022 Evaluation note* Encounter Date Diagnosis Assessment Notes Treatment Notes Treatment Clinical Notes Apr, Insomnia, unspecified type (ICD-10 - G47.00) Patient states she has been taking temazepam for approximately [address] Yoder. She states prior to that she had tried other medication such as Ambien without relief. She has never had a sleep study. She does admit to mild snoring and she is overweight. I do recommend referral for sleep study and she agrees. This has been filled out and faxed. As for her temazepam I do explain to her that this is not generally the best option for long-term insomnia as it is very addictive and loses efficacy over time. My plan will be to slowly wean her off the temazepam and await sleep study results. I may consider orexant inhibitors in the future. Apr, Type 2 diabetes mellitus with diabetic neuropathy, unspecified (ICD-10 - E11.40) Type 2 diabetes mellitus. This is managed by Dr. Russell but Dr. Garcia has prescribed some of her meds. I do review lab work done in November. Patient asked if any of the meds she is taking are unnecessary. I do explained her that most of these are very important but there are couple we can consider discontinuing When asked about the amitriptyline she is not sure why she is taking this but does admit to some symptoms of neuropathy. States that does not seem to bother her too much. I do explain that she may wean herself off of the nortriptyline if she wishes and see how she does. She is also taking Reglan. She is not sure why but presumably for gastroparesis secondary to diabetes mellitus. She denies any symptoms related to this currently. I also explained she may trial herself off of the Reglan to see how she does. Apr, medical terminologist (current) use of insulin (ICD-10 - Z79.4) Apr, Other Patient sees Dr Kenisha Castro and is up-to-date on Paps and mammograms. She did have a colonoscopy done 5 years ago and states it was normal and she is due in 5 more years. I discussed other preventative measures such as vaccines but the patient is not at all interested in any vaccines. [facility] Other 12-14-2021 Evaluation note* Encounter Date Diagnosis Assessment Notes Treatment Notes Treatment Clinical Notes Mar, Type 2 diabetes mellitus with hyperglycemia (ICD-10 - E11.65) [facility] Other 12-06-2021 Evaluation note* Encounter Date Diagnosis Assessment Notes Treatment Notes Treatment Clinical Notes Mar, Pain in right leg (ICD-10 - M79.604) This patient has normal noninvasive studies and she can walk as far she wishes. Her leg pain does not due to a vascular etiology. It sounds nervous in my opinion it is shooting in nature. I am going to discharge her from my office. Mar, Pain in left leg (ICD-10 - M79.605) [facility] Other 11-29-2021 Evaluation note* Encounter Date Diagnosis Assessment Notes Treatment Notes Treatment Clinical Notes Feb, Type 2 diabetes mellitus with hyperglycemia (ICD-10 - E11.65) Managing type 2 diabetes material was published 1. Controlled, Type 2 diabetes with A1c 6.9% 2. Blood glucose levels according to [facility] cgm download 03/14/2021- 021: Avg glucose 167. >250-5%, >180-26%, 70-180-69%, <70-0%, <54-0%. CV 25.7%. Reviewed downlod with pt, fasting am glucose above target. Discussed with pt increasing ozempic, she is agreeable. Recommend ozempic 0.75mg once weekly x2 weeks then increase to 1mg once weekly. She reports insulin is and needs new rx, she was given sample fiasp u100 today for use with corrective scale 1:50 ac, hs. 3. Patient is alert, oriented and receptive to making changes or counseling. Notes: Seen for an assessment of current glucose pattern, changes in treatment plan, counseling and coordination of care related to diabetes, risks, and benefits of treatment, medications, and side effects. TOPICS REVIEWED: 1. Time was spent reviewing: a. Basic concepts of diabetes, progressive beta cell , concepts of basal/bolus/correc tive insulin requirements. Basal: The goal is fasting blood glucose of 90-130mg. IF fasting blood glucose starts to run under 100mg 3x's/ week, decrease dose by 10%. Bolus: The goal is to hold the blood glucose level steady meal to meal. If pt. is going to have increased physical activity after a meal, decrease the schedule meal dose prior to the activity by 30-50%. If pt. skips a meal do not take this dose. Correction: The goal is to correct an elevated glucose back into the 100-150mg range b. Nutrition: Concepts of healthy diet, encouraged to decrease saturated fat in diet and increase non-starchy vegetables and fruits in diet. BMI: Pt. needs to select one small change to decrease caloric intake or increase physical activity to help decrease weight. c. Correct treatment of hypoglycemia, carry a glucose source at all times on your person, in vehicles, and at bedside. Can use glucose tablets/4, four ounces of pop or juice equal to 15 G of carbohydrate. Blood glucose should be 100 mg/dl or higher when driving. d. ADA glucose goals for age and medical complexity reviewed e. Patient questions addressed 2. Activity/exercise: Encouraged to start any form of physical activity. Start low level and increase slowly to a minimal goal of 150 minutes/week. Limit activity to what is allowed by other issues such as cardiac, pulmonary or orthopedic restrictions. 3. Standards of care: Reminded to have an annual dilated eye exam, A1C every 3 months, urine testing for microalbumin once/year, check feet daily and report any cuts or sores that do not appear to be healing. 4. Meter: Plan to check blood glucose: Please check blood glucose levels 4 times/day. Back to back meals reveal effectiveness of bolus dosing. The blood glucose data is used to determine insulin doses and confirm symptoms for hypoglycemia and hyperglcyemia. The blood glucose data is used to determine insulin doses, and confirm symptoms for hypoglycemia and hyperglcyemia. 5. [facility]. Contact office if any issues or concerns with patterns of hypoglycemia, hyperglycemia, or diabetes medication issues. 6. Prescriptions: Admelog/ozempic sent to [facility]. Feb, Dietary counseling and surveillance (ICD-10 - Z71.3) Eat well, exercise well, be well: dietary and fitness guidelines material was published Feb, Hyperlipidemia (ICD-10 - E78.5) Managing your cholesterol material was published 11/2020 ldl 86, trig. 201. On statin Feb, HTN (hypertension) (ICD-10 - I10) Qs to ask: hypertension material was published On [facility]. Feb, medical terminologist current use of insulin (ICD-10 - Z79.4) Feb, Peripheral neuropathy (ICD-10 - G62.9) Living with peripheral neuropathy material was published Feb, Vitamin B 12 deficiency (ICD-10 - E53.8) Good food sources of vitamin B12 material was published 11/2020 Vit b12 946 Feb, Albuminuria (ICD-10 - R80.9) Protein, urine material was published 10/2019 m/a cr ratio 67, 11/2020 m/a cr ratio 12- improved. Reviewed importance of glucose/bp control to prevent further nephropathy. Feb, BMI 30.0-30.9,adult (ICD-10 - Z68.30) Healthy eating on a budget material was published [facility] Other 11-01-2021 Evaluation note* Encounter Date Diagnosis Assessment Notes Treatment Notes Treatment Clinical Notes Feb, PAD (peripheral artery disease) (ICD-10 - I73.9) This recommended patient I recommended we start with noninvasive arterial studies to evaluate her blood supply to her feet and legs. We will order these and see her back in a week or 2 to go over the results. There is no indication for any acute intervention at this time. This patient does not have any critical limb ischemia no tissue loss no rest pain. The pain in her feet sounds neurologic in origin. [facility] Other Chief complaint+Reason for visit Narrative* Reason for Visit [id number] Dietary counseling and surveillance Hyperlipidemia Hypertension Insulin long-term use Peripheral neuropathy Type 2 diabetes mellitus Vitamin B 12 deficiency [facility] Work Phone: Consult note Author Walter Montgomery [facility] December 11, 2021 3:18pm Note Date/Time December 11, 2021 3: 18pm [facility] [address] [place] [address] General Surgery Consult Note Signed Patient: Kerry Gay MR#: [id number] : 1955 Acct:[id number] Age/Sex: 66 / F Adm Date: 2 Loc: 3T Room: [address] [place] [address] Type: ADM INOo Attending Dr: Shira Stephen MD Copies to: NON STAFF MD Walter Kay DO~ History of Present Illness Date of consult: 12/11/2021 Requesting/Attending Provider: Shira Stephen MD History of present illness: Patient came to hospital with right back pain that went around to her right side/lower quadrant. She said that this started on Saturday or . It was stabbing. It was considerable and since it was not going away her boyfriend made her come to the hospital, she was probably not going to come and get it checked out but he made her. She is not having any nausea or vomiting. She wasnot having any fevers chills or sweats. She does not get exacerbation of this pain with eating. She points to her right side. She said what does make the pain worse is moving. If she tries to stand up or go to the bathroom it will bebothersome. She feels like it is inside and not at the muscles or bones themselves. She not having any diarrhea or constipation. She has not been having any blood in the stool. She has not been having any frequency urgency or dysuria. She does have a history of passing air in her urine, she said this been going on for quite a while. Sometimes she might see a little bit of sediment. She never sees any stool in the urine. She does not have frequent urinary tract infections. She ate today without any problems. She has an appetite. Patient is a smoker. Surgical history of hysterectomy with removal of cervix Review of Systems Review of Systems All other systems reviewed & are negative unless noted below or in HPI [facility] Vaccinated for COVID-19?: No Medical History Diabetes Hypertension Surgical History H/O: hysterectomy Hx of tonsillectomy Family History Mother Heart disease Father Throat cancer Social History Smoking Status: Current every day smoker Tobacco Type: cigarettes Substance Use Type: None Allergies & Medications Medications and Allergies Allergies Sulfa (Sulfonamide Antibiotics) Allergy (Verified 12/09/21 07:01) Vomiting Home Medications aspirin 81 mg tablet,delayed release 81 mg PO DAILY 02/09/21 [History Confirmed 12/09/21] cyanocobalamin (vitamin B-12) 1,000 mcg tablet (Vitamin B-12) 1,000 mcg PO DAILY02/09/21 [History Confirmed 12/09/21] docusate sodium 100 mg capsule (Stool Softener) 100 mg PO TID 02/09/21 [History Confirmed 12/09/21] empagliflozin 25 mg tablet (Jardiance) 25 mg PO DAILY 02/09/21 [History Confirmed 12/09/21] folic acid 1 mg tablet 1 mg PO DAILY 02/09/21 [History Confirmed 12/09/21] insulin lispro 100 unit/mL subcutaneous pen (Formerly [facility] [employer] U-100 Insulin lispro) 1 sliding scale dose subcut USEASDIRECTD 02/09/21 [History Confirmed 12/09/21] lisinopril 10 mg tablet 10 mg PO DAILY 02/09/21 [History Confirmed 12/09/21] loratadine 10 mg tablet 10 mg PO DAILY 02/09/21 [History Confirmed 12/09/21] metformin 500 mg tablet 500 mg PO BID 02/09/21 [History Confirmed 12/09/21] metoclopramide HCl 10 mg tablet 10 mg PO DAILY 02/09/21 [History Confirmed 12/09/21] multivitamin 1 tab PO BID 02/09/21 [History Confirmed 12/09/21] nortriptyline 50 mg capsule 50 mg PO BID 02/09/21 [History Confirmed 12/09/21] omeprazole 20 mg tablet,delayed release 20 mg PO DAILY 02/09/21 [History Confirmed 12/09/21] pioglitazone 15 mg tablet 15 mg PO DAILY 02/09/21 [History Confirmed 12/09/21] semaglutide (Ozempic) 0.5 mg subcut QWEEK 02/09/21 [History Confirmed 12/09/21] simvastatin 20 mg tablet 20 mg PO DAILY 02/09/21 [History Confirmed 12/09/21] temazepam 30 mg capsule 30 mg PO QHS 02/09/21 [History Confirmed 12/09/21] Active Medications Acetaminophen (Acetaminophen 325 Mg Tablet) 650 mg PO Q6HR PRN PRN Reason: Pain Scale 1 - 3 or fever Stop: 12/09/22 11:18 Aspirin (Aspirin 81 Mg Tablet.) 81 mg PO DAILY [facility] Stop: 12/10/22 08:59 Last Admin: 12/11/21 08:00 Dose: 81 mg Atorvastatin Calcium (Atorvastatin 10 Mg Tablet) 10 mg PO DAILY [facility] Stop: 12/10/22 08:59 Last Admin: 12/11/21 08:00 Dose: 10 mg Dextrose (Dextrose 50% In Water 25 Gm/50 Ml Syringe) 0 gm IV-PUSH PRN PRN PRN Reason: Hypoglycemia Stop: 12/09/22 11:18 Enoxaparin Sodium (Enoxaparin 40 Mg/0.4 Ml Syringe) 40 mg SUBCUT DAILY@10 [facility] Stop: 12/10/22 09:59 Last Admin: 12/11/21 09:19 Dose: Not Given Glucose (Dextrose 40% Gel 15 Gm Tube) 0 gm PO PRN PRN PRN Reason: Hypoglycemia Stop: 12/09/22 11:18 Hydralazine HCl (Hydralazine 20 Mg/Ml Vial) 10 mg IV-PUSH Q4H PRN PRN Reason: Hypertension Stop: 12/09/22 11:18 Hydromorphone HCl (Hydromorphone 1 Mg/Ml Syringe) 1 mg IV-PUSH Q6H PRN PRN Reason: Pain Last Admin: 12/11/21 06:42 Dose: 1 mg Ceftriaxone Sodium (Rocephin) 1 gm in 50 mls @ 100 mls/hr IV Q24H [facility] Last Infusion: 12/11/21 10:15 Dose: Infused Insulin Aspart (Insulin Aspart 300 Units/3 Ml Insuln.Pen) 0 units SUBCUT TID.[facility]; Protocol Stop: 12/09/22 11:59 Last Admin: 12/11/21 11:33 Dose: 3 units Nortriptyline HCl (Nortriptyline 25 Mg Capsule) 50 mg PO BID [facility] Stop: 12/09/22 20:59 Last Admin: 12/11/21 08:00 Dose: 50 mg Omeprazole (Omeprazole 20 Mg Capsule.) 20 mg PO DAILY [facility] Stop: 12/10/22 08:59 Last Admin: 12/11/21 08:00 Dose: 20 mg Ondansetron HCl (Ondansetron 4 Mg/2 Ml Vial) 4 mg IV-PUSH Q8H PRN PRN Reason: Nausea And Vomiting Stop: 12/09/22 11:18 Pioglitazone HCl (Pioglitazone 15 Mg Tablet) 15 mg PO DAILY [facility] Stop: 12/10/22 08:59 Last Admin: 12/11/21 08:00 Dose: 15 mg Potassium Chloride (Potassium Chloride Er 20 Meq Tab.Er.Prt) 40 meq PO DAILY PRN PRN Reason: Hypokalemia Stop: 12/09/22 11:18 Sodium Chloride (Sodium Chloride 0.9 % 10 Ml Syringe) 0 ml IV-PUSH PRN PRN PRN Reason: Flush Stop: 12/09/22 06:59 Last Admin: 12/10/21 18:24 Dose: 10 ml Temazepam (Temazepam 15 Mg Capsule) 30 mg PO QHS [facility] Stop: 12/09/22 21:59 Last Admin: 12/10/21 21:14 Dose: 30 mg Tramadol HCl (Tramadol 50 Mg Tablet) 50 mg PO Q6H PRN PRN Reason: Pain Scale 4 - 7 Stop: 06/07/22 11:18 Last Admin: 12/11/21 08:00 Dose: 50 mg Exam Physical Exam Vital Signs: Temp Pulse Resp BP Pulse Ox O2 Del Method 98.0 F 79 18 113/73 95 Room Air 12/11/21 11:32 12/11/21 11:32 12/11/21 11:32 12/11/21 11:32 12/11/21 11:32 12/11/21 11:32 Narrative: Patient is conversive and pleasant. She is totally nontoxic. Her head is atraumatic normocephalic. Her eyes are without a scleral icterus. Neck no anterior posterior cervical lymphadenopathy. Heart is regular rate rhythm. Lungs are clear. Abdomen is soft its mildly tender in the right upper quadrant more so than the right lower quadrant there is no tenderness whatsoever on the left abdomen. Extremities no edema. There is no costovertebral angle tenderness. Results Pain Assessment Right Abdomen: Pain Intensity: 4 Right Back: Pain Description: Constant Pain Intensity: 7 Intake and Output 24 hour I&O: Intake & Output 12/10/21 12/11/21 12/11/21 23:59 07:59 15:59 Intake Total 1320 / 3020 450 / 1100 650 / 1100 Balance 1320 / 3020 450 / 1100 650 / 1100 Weight 85.4 kg Labs CBC & Chem 7: 12/11/21 13:37 12/11/21 13:37 Laboratory Results - last 72 hr 12/11/21 13:37: PHA Creatinine Clear 76.88, Sodium 135 L, Potassium 4.0, Chloride 101, Carbon Dioxide 26.7, BUN 6 L, Creatinine 0.83, Est GFR ( Amer) > 60, Est GFR (Non-Af Amer) > 60, Glucose 204 H, Calcium 9.2, Total Bilirubin 0.3, AST 22, ALT 16, Alkaline Phosphatase 90, Total Protein 5.9 L, Albumin 2.9 L, Globulin 3.0, Albumin/Globulin Ratio 1.0 12/11/21 13:37: Corrected WBC 6.1, Uncorrected WBC Count 6.1, RBC 4.32, Hgb 13.8, Hct 41.4, MCV 95.8, MCH 31.9, MCHC 33.3, RDW 12.9, Plt Count 137 L, MPV 9.0,Neut % (Auto) 66.8, Lymph % (Auto) 21.0, [place] % (Auto) 9.2, Eos % (Auto) 2.6, Baso % (Auto) 0.4, Neut # (Auto) 4.1, Lymph # (Auto) 1.3, [place] # (Auto) 0.6, Eos# (Auto) 0.2, Baso # (Auto) 0.0, Nucleated RBC % (auto) 0.1 12/11/21 11:05: POC Glucose 195 12/11/21 06:58: POC Glucose 172 12/10/21 21:10: POC Glucose 249 12/10/21 16:18: POC Glucose 176 12/10/21 11:20: POC Glucose 268 12/10/21 06:50: PHA Creatinine Clear 75.03, Sodium 139, Potassium 4.0, Chloride 107, Carbon Dioxide 26.2, BUN 8 L, Creatinine 0.86, Est GFR ( Amer) > 60,Est GFR (Non-Af Amer) > 60, Glucose 153 H, Calcium 8.8 12/10/21 06:50: Corrected WBC 7.4, Uncorrected WBC Count 7.4, RBC 4.38, Hgb 14.0, Hct 41.5, MCV 94.9, MCH 32.0, MCHC 33.7, RDW 13.1, Plt Count 141 L D, MPV 9.3, Neut % (Auto) 63.3, Lymph % (Auto) 24.1, [place] % (Auto) 10.5, Eos % (Auto) 1.8, Baso % (Auto) 0.3, Neut # (Auto) 4.7, Lymph # (Auto) 1.8, [place] # (Auto) 0.8, Eos # (Auto) 0.1, Baso # (Auto) 0.0, Nucleated RBC % (auto) 0.0 12/10/21 06:36: POC Glucose 152 12/09/21 20:29: POC Glucose 141 12/09/21 16:31: POC Glucose 236, POC Glucose Comment Glu2: cleaned meter 12/09/21 12:42: Troponin I High Sens 5 12/09/21 12:42: Lactic Acid 1.7 12/09/21 11:59: POC Glucose 176, POC Glucose Comment Glu2: cleaned meter 12/09/21 10:25: SARS Antigen (LFIA) Negative 12/09/21 10:25: COVID-19 Clin Com Negative 12/09/21 08:50: PHA Creatinine Clear 78.16, Sodium 139, Potassium 3.9, Chloride 101, Carbon Dioxide 27.4, BUN 8 L, Creatinine 0.81, Est GFR ( Amer) > 60,Est GFR (Non-Af Amer) > 60, Glucose 185 H, Calcium 10.1, Total Bilirubin 0.7, AST 24, ALT 22, Alkaline Phosphatase 103 H, Total Protein 7.2, Albumin 3.9, Globulin 3.3, Albumin/Globulin Ratio 1.2 12/09/21 08:50: Corrected WBC 12.9 H, Uncorrected WBC Count 12.9 H, RBC 5.25 H, Hgb 16.5 H, Hct 49.8 H, MCV 94.9, MCH 31.5, MCHC 33.1, RDW 13.1, Plt Count 208, MPV 9.5, Neut % (Auto) 79.8, Lymph % (Auto) 9.6, [place] % (Auto) 9.1, Eos % (Auto)1.1, Baso % (Auto) 0.4, Neut # (Auto) 10.3 H, Lymph # (Auto) 1.2, [place] # (Auto) 1.2 H, Eos # (Auto) 0.1, Baso # (Auto) 0.1, Nucleated RBC % (auto) 0.0 12/09/21 08:35: Urine Color Yellow, Urine Appearance Cloudy A, Urine pH 5.5, Ur Specific [place] 1.030, Urine Protein Negative, Urine Glucose (UA) >=1000 H, Urine Ketones Negative, Urine Occult Blood Trace H, Urine Nitrite Positive H, Urine Bilirubin Negative, Urine Urobilinogen Normal, Ur Leukocyte Esterase 2+ H,Urine RBC 5-9 H, Urine WBC 50-100 H, Ur Squamous Epith Cells 10-19 H, Urine Bacteria 4+ H, Hyaline Casts None seen, Other Casts None seen Microbiology Microbiology - Results from entire visit 12/09/21 12:42 Blood - Right Antecubital Blood Culture - Preliminary No Growth 2 Days 12/09/21 12:39 Blood - Left Hand Blood Culture - Preliminary No Growth 2 Days 12/09/21 08:35 Urine - Clean-Voided Midstream Urine Culture - Final Escherichia coli 12/09/21 10:25 Nasal SARS Antigen (LFIA) - Final A&P - General Surgery (1) Pyelonephritis: Code(s): N12 - Tubulo-interstitial nephritis, not specified as acute or chronic Status: Acute (2) Right lateral abdominal pain: Code(s): R10.9 - Unspecified abdominal pain Status: Acute (3) Cholelithiasis: Plan: Right back/flank pain/right upper quadrant pain with uncertain etiology. Patient has gallstones. Her story is not consistent with calculus cholecystitishowever on exam she does have some tenderness in the right upper quadrant. On ultrasound and on CAT scan there was stones but no gallbladder wall thickening or pericholecystic fluid. The appendix is completely normal. This was easily visualized and had no thickening and was completely air-filled. Patient does have symptoms of pneumaturia, possibly has a longstanding colovesical fistula. Patient does not get frequent urinary tract infections. If patient had an emphysematous cystitis she would be exceedingly sick, that is basically a gangrenous infection of the bladder. I had a discussion with patient regarding all findings. She has had some improvement in her symptoms. She has been eating today. Plan will be to recheck labs tomorrow and n.p.o. after midnight. She continues to have symptomsespecially in her right upper quadrant we will proceed with laparoscopy tomorrowand cholecystectomy, possible appendectomy etc. She thinks that is very reasonable. Code(s): K80.20 - Calculus of gallbladder without cholecystitis without obstruction Status: Acute Documented By: Walter Montgomery, 12/11/211511 Signed By: <Electronically signed by DO Walter Montgomery> 12/11/21 [facility] Work Phone: Consult note Author Teresa Strong [facility] December 11, 2021 9:25pm Note Date/Time December 11, 2021 8: 10pm [facility] [address] [place] [address] Urology Consult Note Signed Patient: Kerry Gay MR#: [id number] : 1955 Acct:[id number] Age/Sex: 66 / F Adm Date: 2 Loc: Room: [address] [place] [address] Type: ADM INOo Attending Dr: Shira Stephen MD Copies to: NON STAFF MD Teresa Kay MD~ History of Present Illness Consult Details Consult Date: 12/11/2021 Reason for Urology Consult: fistula Requesting Provider: Shira Stephen MD HPI: 66-year-old female with a PMH of diabetes, hypertension who presented to the ER on 12/09/21 with abrupt right lower quadrant abdominal pain radiating to back forthe past few days. Workup revealed WBC 12.9, afebrile, renal function, urine culture growing EColi and CT AP wo contrast noting small amount of air in the bladder in absence of hydronephrosis, stones or recent instrumentation. There was no inflammation around the bowels or appendix. Mild diverticulosis noted. Now with RUQ>RLQ pain, abdominal US showed cholelithiasis with gall bladder sludge. General surgery plans to take pt to OR for laparoscopy, cholecystectomy possible appendectomy due to symptoms. Urology was consulted due to findings of air in bladder and concern for colovesical fistula. Currently labs wnl, blood cultures negative. Pt endorses foamy urine but not specific air or feelings of passing gas within urinary stream. No stool, mucus or blood within urine. Does note increased urgency and frequency the past month but otherwise denies fever, chills, dysuria, recurrent UTIs, nausea, emesis, diarrhea or constipation. History of vaginal hysterectomy for heavy bleeding in her 30s. No history of urologic/abdominal procedures or history of diverticulitis or Crohn's. Review of Systems Review of Systems Review of systems: General: denies fever, chills, wt loss Skin: denies rash or jaundice HEENT: denies epistaxis or oral lesion Neurological: denies weakness or sensory change Respiratory: denies dyspnea or shortness of breath Cardiac: denies chest pain or palpitations Gastrointestinal: see HPI Urinary: see HPI Musculoskeletal: denies muscle or back pain Psychiatric: denies mood or affect disorder Hematologic: denies easy bleeding or bruising PMFSH Vaccinated for COVID-19?: No Medical History Diabetes Hypertension Surgical History H/O: hysterectomy Hx of tonsillectomy Family History Mother Heart disease Father Throat cancer Social History Smoking Status: Current every day smoker Tobacco Type: cigarettes Substance Use Type: None Meds Medications and Allergies Allergies Sulfa (Sulfonamide Antibiotics) Allergy (Verified 12/09/21 07:01) Vomiting Home Medications aspirin 81 mg tablet,delayed release 81 mg PO DAILY 02/09/21 [History Confirmed 12/09/21] cyanocobalamin (vitamin B-12) 1,000 mcg tablet (Vitamin B-12) 1,000 mcg PO DAILY02/09/21 [History Confirmed 12/09/21] docusate sodium 100 mg capsule (Stool Softener) 100 mg PO TID 02/09/21 [History Confirmed 12/09/21] empagliflozin 25 mg tablet (Jardiance) 25 mg PO DAILY 02/09/21 [History Confirmed 12/09/21] folic acid 1 mg tablet 1 mg PO DAILY 02/09/21 [History Confirmed 12/09/21] insulin lispro 100 unit/mL subcutaneous pen (Admelog SoloStar U-100 Insulin lispro) 1 sliding scale dose subcut USEASDIRECTD 02/09/21 [History Confirmed 12/09/21] lisinopril 10 mg tablet 10 mg PO DAILY 02/09/21 [History Confirmed 12/09/21] loratadine 10 mg tablet 10 mg PO DAILY 02/09/21 [History Confirmed 12/09/21] metformin 500 mg tablet 500 mg PO BID 02/09/21 [History Confirmed 12/09/21] metoclopramide HCl 10 mg tablet 10 mg PO DAILY 02/09/21 [History Confirmed 12/09/21] multivitamin 1 tab PO BID 02/09/21 [History Confirmed 12/09/21] nortriptyline 50 mg capsule 50 mg PO BID 02/09/21 [History Confirmed 12/09/21] omeprazole 20 mg tablet,delayed release 20 mg PO DAILY 02/09/21 [History Confirmed 12/09/21] pioglitazone 15 mg tablet 15 mg PO DAILY 02/09/21 [History Confirmed 12/09/21] semaglutide (Ozempic) 0.5 mg subcut QWEEK 02/09/21 [History Confirmed 12/09/21] simvastatin 20 mg tablet 20 mg PO DAILY 02/09/21 [History Confirmed 12/09/21] temazepam 30 mg capsule 30 mg PO QHS 02/09/21 [History Confirmed 12/09/21] Exam Physical Exam Vital Signs: Temp Pulse Resp BP Pulse Ox O2 Del Method 98.2 F 80 16 151/73 H 94 L Room Air 12/11/21 20:00 12/11/21 20:00 12/11/21 20:00 12/11/21 20:00 12/11/21 20:00 12/11/21 20:00 Narrative: General: The patient appears nontoxic. Does not appear ill. Skin: Warm, dry. No gross lesions are identified. HEENT: Normocephalic, atraumatic. Pupils equal, round, and reactive to light and accommodation. Oral mucosa moist. Respiratory: No increased respiratory effort. On room air Cardiac: Regular rate and rhythm GI: Abdomen is soft, RUQ/RLQ TTP : The bladder is nonpalpable. There is no CVA tenderness bilaterally. Musculoskeletal: Moves all extremities, normal strength Neurologic: Awake, alert, oriented Psychiatric: Affect normal to clinical condition Results Labs CBC & Chem 7: 12/11/21 13:37 12/11/21 13:37 Labs: Laboratory Results - Last 48 hrs. 12/11/21 16:23: POC Glucose 212 12/11/21 13:37: PHA Creatinine Clear 76.88, Sodium 135 L, Potassium 4.0, Chloride 101, Carbon Dioxide 26.7, BUN 6 L, Creatinine 0.83, Est GFR ( Amer) > 60, Est GFR (Non-Af Amer) > 60, Glucose 204 H, Calcium 9.2, Total Bilirubin 0.3, AST 22, ALT 16, Alkaline Phosphatase 90, Total Protein 5.9 L, Albumin 2.9 L, Globulin 3.0, Albumin/Globulin Ratio 1.0 12/11/21 13:37: Corrected WBC 6.1, Uncorrected WBC Count 6.1, RBC 4.32, Hgb 13.8, Hct 41.4, MCV 95.8, MCH 31.9, MCHC 33.3, RDW 12.9, Plt Count 137 L, MPV 9.0, Neut % (Auto) 66.8, Lymph % (Auto) 21.0, [place] % (Auto) 9.2, Eos % (Auto) 2.6, Baso % (Auto) 0.4, Neut # (Auto) 4.1, Lymph # (Auto) 1.3, [place] # (Auto) 0.6, Eos # (Auto) 0.2, Baso # (Auto) 0.0, Nucleated RBC % (auto) 0.1 12/11/21 11:05: POC Glucose 195 12/11/21 06:58: POC Glucose 172 12/10/21 21:10: POC Glucose 249 12/10/21 16:18: POC Glucose 176 12/10/21 11:20: POC Glucose 268 12/10/21 06:50: PHA Creatinine Clear 75.03, Sodium 139, Potassium 4.0, Chloride 107, Carbon Dioxide 26.2, BUN 8 L, Creatinine 0.86, Est GFR ( Amer) > 60,Est GFR (Non-Af Amer) > 60, Glucose 153 H, Calcium 8.8 12/10/21 06:50: Corrected WBC 7.4, Uncorrected WBC Count 7.4, RBC 4.38, Hgb 14.0, Hct 41.5, MCV 94.9, MCH 32.0, MCHC 33.7, RDW 13.1, Plt Count 141 L D, MPV 9.3, Neut % (Auto) 63.3, Lymph % (Auto) 24.1, [place] % (Auto) 10.5, Eos % (Auto) 1.8, Baso % (Auto) 0.3, Neut # (Auto) 4.7, Lymph # (Auto) 1.8, [place] # (Auto) 0.8, Eos # (Auto) 0.1, Baso # (Auto) 0.0, Nucleated RBC % (auto) 0.0 12/10/21 06:36: POC Glucose 152 12/09/21 20:29: POC Glucose 141 12/09/21 10:25: COVID-19 Clin Com Negative Microbiology Microbiology: 12/09/21 12:42 Blood - Right Antecubital Blood Culture - Preliminary No Growth 2 Days 12/09/21 12:39 Blood - Left Hand Blood Culture - Preliminary No Growth 2 Days 12/09/21 08:35 Urine - Clean-Voided Midstream Urine Culture - Final Escherichia coli 12/09/21 10:25 Nasal SARS Antigen (LFIA) - Final Imaging CT scan - abdomen: report reviewed and image reviewed CT scan - pelvis: report reviewed and image reviewed Additional studies: CT ABDOMEN AND PELVIS WITHOUT CONTRAST COMPARISON: None CLINICAL DATA: Right flank pain. Spiral images were obtained through the abdomen and pelvis without contrast.? This CT exam was performed using one or more following dose reduction techniques: Automated exposure control, adjustment of the mA and/or kV accordingto patient size, or use of iterative reconstruction technique. Limited cuts through the lung bases show dependent atelectasis. Assessment of the intra-abdominal organs is slightly limited by the absence of contrast.? There is a small amount of gallbladder sludge and/or tiny stones.? There is no pericholecystic inflammation.? The liver, spleen and pancreas show no significant findings.? There is thickening of the adrenal limbs, greater on the left.? No renal calculi or hydronephrosis are identified.? No ureteral dilatation or stones are seen. There is atherosclerotic plaque at the aorta and iliac arteries.? There are small lymph nodes.? No ascites is present.? The small bowel loops are not dilated.? There is air and stool within the colon, greater on the right.? There is subtle dextroscoliotic curvature and endplate spurring.? There is also minor facet disease. Images through the pelvis show normal caliber small bowel loops.? There is no appendiceal inflammation.? There is a small amount of distal colonic stool.? There are a few diverticula.? No active inflammation is seen.? The uterus is surgically absent.? The urinary bladder is not adequately distended for assessment however it does appear to contain a small amount of air.? Correlationis recommended as to any recent instrumentation.? There is no ascites. CT/CT abdomen pelvis wo con IMPRESSION: ? CHOLELITHIASIS AND/OR SLUDGE. ? NO BOWEL OR URINARY TRACT OBSTRUCTION. ? DIVERTICULOSIS. ? SMALL AMOUNT OF AIR WITHIN THE URINARY BLADDER.? CORRELATION IS RECOMMENDED TO RECENT CATHETERIZATION. Assessment/Plan (1) Right lateral abdominal pain: Code(s): R10.9 - Unspecified abdominal pain (2) Emphysematous cystitis: Code(s): N30.80 - Other cystitis without hematuria Plan 66 yo F with DM2 who is admitted with severe right sided abdominal pain. She is stable, nontoxic. CT AP did not note any bowel inflammation or appendicitis however due to persistent pain and gallbladder sludge on US, plans for lap karla, possible appendectomy tomorrow with General Surgery. Urology was consulted due to incidental findings of small air in bladder. EColi UTI also noted, undergoing treatment. Overall pt is asymptomatic with no risk factors for colovesical fistula, imaging otherwise not concerning, questionable pneumaturia although more consistent with just bubbles in toilet after urination. Given her lack of significant symptoms, it's possible air is secondary to UTI given length of urgency symptoms, although her labs are remarkable normal. Discussed workup for colovesical fistula including CT AP with PO or rectal contast (no IV) to evaluate for fistula. We discussed doing this inpatient if she does not improve or her urine is concerning for fistula. Otherwise, we will let her recover from her acute abdominal pain and consider workup outpatient if she develops another UTI or other symptoms. Pt would like to address this outpatient if possible . -Recommend de la garza placement for maximal decompression of UTI x 1 week. Cont to monitor output and appearance. If there is concern for stool in urine or she does not improve while inpt, will obtain CT AP with PO or rectal contrast (no IV) to evaluate for fistula. Otherwise, will follow up outpatient given low riskfactors for fistula. -Cont abx treatment based on sensitivities at least 7-10 days for UTI Documented By: Teresa Strong MD 12/11/212009 Signed By: <Electronically signed by Teresa Strong MD> 12/11/212124 [facility] Work Phone: Discharge summary Author Wilmer Vance [facility] December 13, 2021 1:58pm Note Date/Time December 13, 2021 1: 58pm [facility] [address] [place] [address] Discharge Summary Signed Patient: Kerry Gay MR#: [id number] : 1955 Acct:[id number] Age/Sex: 66 / F Adm Date: 2 Loc: Room: [address] [place] [address]: Wilmer Vance MD Copies to: MD Corinna Webber William L. DO~ Providers Date of Discharge: 12/13/21 Discharging Provider: Wilmer Vance Primary Care Provider: Darrell Yoder Consults: 12/11/21 13:24 Consult to General Surgery Routine 12/11/21 15:08 Consult to Urology Routine Discharge Diagnosis (1) Right lateral abdominal pain: (2) Cholelithiasis: (3) Acute UTI: Final Diagnosis Final Discharge Diagnosis: As above Summary Hospital Course Hospital course: Patient is 66-year-old female with past medical history of diabetes, hypertension presented to the ER with right sided abdominal pain, patient was complaining of pain more in the right lower quadrant, radiating to the back, patient states that is been ongoing for the last couple of days, stated that shecould not tolerate it anymore so her advised her to come to ER.? Patientdenied any fever or chills. In ER, UA consistent with UTI, patient had CT Abdomen and RUQ US which showed cholelithiasis and gallbladder sludge, diverticulosis and small amount of air within the urinary bladder, patient denies any history of recent catheterization. During hospital course, patient was started on Rocephin treatment for UTI, urineculture grew E.coli. Surgery was consulted for cholelithiasis. Decision was madeto undergo Lap karla for which patient went to OR yesterday 12/12/21. Patient tolerated surgery with no immediate complications. This morning, patient tolerating oral diet with no issues, pain is minimal, asking to go home. Urologywas consulted as well and recommended continue de la garza for maximal decompression of UTI x 1 week. low suspicion for fistula. Will need to follow up with urology outpatient. Discussed with patient at bedside the above plan. Patient verbalizedunderstanding. Patient is hemodynamically stable for discharge with instructions. Will transition to oral antibiotics treatment of UTI. Condition Condition at Discharge: Stable Time Spent with Patient Time spent providing/coordinating discharge services (# min): 35 Surgeries and Procedures Operation Date: 12/12/21 16:30 Actual Procedures p OR Laparoscopic Cholecystectomy with ICG (Left) - Walter Montgomery, DO Diagnostic Studies Completed and Pending Studies Pending studies at discharge: 12/09/21 12:42 Blood Culture Routine Preliminary micro results at discharge 12/09/21 12:42 Blood Culture - Preliminary Blood - Right Antecubital No Growth 4 Days 12/09/21 12:39 Blood Culture - Preliminary Blood - Left Hand No Growth 4 Days Labs on day of discharge: 12/13/21 11:17: POC Glucose 230 12/13/21 06:50: POC Glucose 205 12/13/21 05:58: PHA Creatinine Clear 84.79, Sodium 137, Potassium 4.4, Chloride 105, Carbon Dioxide 24.6, BUN 12, Creatinine 0.75, Est GFR ( Amer) > 60, Est GFR (Non-Af Amer) > 60, Total Bilirubin 0.7, Direct Bilirubin 0.2, Indirect Bilirubin 0.5 12/13/21 05:58: Corrected WBC 9.4, Uncorrected WBC Count 9.4, RBC 4.41, Hgb 14.2, Hct 41.9, MCV 95.1, MCH 32.2, MCHC 33.9, RDW 12.9, Plt Count 178, MPV 9.3,Neut % (Auto) 90.4, Lymph % (Auto) 7.7, [place] % (Auto) 1.8, Eos % (Auto) 0.0, Baso % (Auto) 0.1, Neut # (Auto) 8.5 H, Lymph # (Auto) 0.7 L, [place] # (Auto) 0.2,Eos # (Auto) 0.0, Baso # (Auto) 0.0, Nucleated RBC % (auto) 0.0 12/12/21 20:42: POC Glucose 214 12/12/21 18:25: POC Glucose 178 12/12/21 15:26: POC Glucose 133 Exam Physical Exam Vital Signs: Temp Pulse Resp BP Pulse Ox O2 Del Method O2 Flow Rate 97.7 F 88 16 119/67 93 L Room Air 3 12/13/21 11:06 12/13/21 11:06 12/13/21 11:06 12/13/21 11:06 12/13/21 11:06 12/13/21 11:06 12/13/21 08:00 Narrative: Const General: cooperative, comfortable, in no acute distress Orientation: alert, awake and oriented x3 HEENT Head: normal to inspection Nose: external nose normal Mouth: oral mucosae normal and lip normal Eyes Conjunctivae: conjunctivae normal Neck Neck: normal visual inspection Chest Chest palpation & inspection: normal inspection of the chest Resp Effort & Inspection: normal respiratory effort, not labored, no respiratory distress, not tachypneic and no use of accessory muscles Auscultation: clear to auscultation b/l, no crackles, no wheezes Cardio Rate: regular rate Rhythm: regular rhythm Heart Sounds: S1 normal, S2 normal and no murmurs GI Inspection: normal to inspection and non-distended Palpation: soft, not firm and nontender Scars noted- healing, no signs of infection Neuro General: alert, awake and oriented x3. No obvious focal deficit Extrem General: normal to inspection and no pedal edema Psych Appearance: grossly normal Affect: normal affect Attitude: cooperative Discharge Plan Discharge Plan Patient Disposition: Home Activity: Other Comment: Please see General Surgery discharge instructions for activity restrictions Diet: Diabetic Additional Instructions: Maintain de la garza until you see Dr. Strong. DISCHARGE INSTRUCTIONS FOR GENERAL SURGERY YOUR ACTIVITY MAY INCLUDE: -Going up and down stairs slowly. -Walking around the house or outside if the weather is satisfactory. -No driving until you are seen in office and cleared for driving. -Light housework or light work permitted in 2 weeks. -Heavy lifting permitted in 4 weeks At your first office visit we will discuss: Return to work, return to sports, return to exercise, etc. WOUND CARE/INCISION CARE: -Keep incision clean and dry -Showering is okay, no tub baths -Is it common to feel pulling or sharp sticking sensations in the area of incision, these sensations are a part of the normal healing process. -If you develop fever, increasing pain, redness, or swelling around the incision, please notify our office MEDICATION -Resume all previous medications that you were taking for problems unrelated to your surgery, unless informed otherwise. If there are any problems with this, please call the original prescribing doctor. If you have any other questions regarding medications, please call our office. -Over the counter medications such as Acetaminophen, Ibuprofen, Naproxen, and others may be used as directed for pain unless a prescription was provided. Stay away from fatty or greasy foods. Follow-up at the office of Dr. Montgomery in 1 week at your scheduled appointment Instructions: Cholecystectomy, Laparoscopic Surgery, Acetaminophen, Cefuroxime,[facility] De La Garza Catheter Care at Home Prescriptions: New acetaminophen 325 mg Tablet 650 mg PO Q6HR PRN (Reason: Pain Scale 1 - 3 or fever) Qty: 30 0RF cefuroxime axetil 500 mg tablet 500 mg PO BID 3 Days Qty: 6 0RF Continued multivitamin Tablet 1 tab PO BID pioglitazone 15 mg Tablet 15 mg PO DAILY metformin 500 mg Tablet 500 mg PO BID cyanocobalamin (vitamin B-12) [Vitamin B-12] 1,000 mcg Tablet 1,000 mcg PO DAILY aspirin 81 mg Tablet,Delayed Release (Dr/Ec) 81 mg PO DAILY temazepam 30 mg Capsule 30 mg PO QHS simvastatin 20 mg Tablet 20 mg PO DAILY lisinopril 10 mg Tablet 10 mg PO DAILY docusate sodium [Stool Softener] 100 mg Capsule 100 mg PO TID folic acid 1 mg Tablet 1 mg PO DAILY loratadine 10 mg Tablet 10 mg PO DAILY nortriptyline 50 mg Capsule 50 mg PO BID metoclopramide HCl 10 mg Tablet 10 mg PO DAILY insulin lispro [Admelog SoloStar U-100 Insulin] 100 unit/mL Insulin Pen 1 sliding scale dose SUBCUT USEASDIRECTD omeprazole 20 mg Tablet,Delayed Release (Dr/Ec) 20 mg PO DAILY Jardiance 25 mg Tablet 25 mg PO DAILY Ozempic 0.25 mg or 0.5 mg(2 mg/1.5 mL) Pen Injector 0.5 mg SUBCUT QWEEK Rx Instructions: Saturday Follow Up: Darrell Yoder DO [Primary Care Provider] - (His office was notified of your discharge. They request that you call to schedule a 7 day post hospitalfollow up appointment.) Walter Montgomery DO [Active Staff - D.O.] - 12/21/21 2:45 pm Teresa Strong MD [Active Staff] - 12/21/21 10:00 am Documented By: Wilmer Vance MD 12/13/21 13 44 Signed By: <Electronically signed by Wilmer Vance MD> 12/13/21 6908 [facility] Work Phone: Discharge summary Author Elva Florian [facility] September 15, 2023 1:17am Note Date/Time September 14, 2023 2:20p m [facility] [address] [place] [address] Discharge Summary Signed Patient: Kerry Gay MR#: [id number] : 1955 Acct:[id number] Age/Sex: 67 / F Adm Date: 4 Loc: Room: [address] [place] [address]: Elva Florian MD Copies to: DO Elva Daniels MD~ Providers Date of Discharge: 09/14/23 Discharging Provider: Elva Florian Primary Care Provider: Sandra Keita Consults: * Darrell Ch MD;Faraz Gilliam MD Cardiology Discharge Diagnosis (1) Atrial flutter with rapid ventricular response: (2) New onset atrial flutter: (3) Cardiomyopathy: (4) Hyperlipidemia: (5) Hypertension: (6) Diabetes: Final Diagnosis Final Discharge Diagnosis: As Above Summary Hospital Course Hospital course: Mrs. Gay is a pleasant 67F with PMH of HTN, DM, HLD, GERD who was referred from doctor office to ED due to incidental finding of tachycardia and admitted for the evaluation and treatment of new onset A flutter with RVR Newly diagnosed A flutter with RVR New Cardiomyopathy the patient was found to have Afib RVR in the ED with heart rate up to 136 and was give IV metoprolol. she was also started on diltiazem oral with prn IV metoprolol * EKG ED shows Aflutter @ 136 bpm without significant acute changes * CXR ED no acute cardiopulmonary abnormality * No significant electrolyte Abnormality * Mg 1.6 ( MagOx added) * Echocardiogram Ejection Fraction = 35-40%. * TSH wnl * LDL 59 She will be discharged of metoprolol and Eliquis She is already on ACEI and statin She was cleared for discharge with Outpatient follow up with Dr. Ch in 1 month On discharge No SOB, Chest pain, hemodynamically stable, rate controlled * During the patient's stay, all other chronic conditions remained stable unlessotherwise noted above. I have personally seen and examined the patient on the date of this note. The patient's condition has stabilized and shown improvement.Consequently, the decision has been made to discharge the patient to continue treatment on an outpatient basis. Both verbal and written discharge instructionswill be provided to ensure a smooth transition and continuity of care. Time Spent with Patient Time spent providing/coordinating discharge services (# min): 35 Discharge Plan Discharge Plan Patient Disposition: Home Activity: No Activity Restriction Diet: Diabetic and Low-Sodium Additional Instructions: Continue to monitor glucose levels as before. Instructions: Apixaban, Metoprolol, Atrial Flutter (DC), Know your Meds Prescriptions: New Eliquis 5 mg Tablet 5 mg PO BID Qty: 60 0RF metoprolol succinate 50 mg Tablet Extended Release 24 Hr 50 mg PO DAILY Qty: 30 0RF magnesium oxide [MagOx] 400 mg (241.3 mg magnesium) tablet 400 mg PO DAILY Qty: 30 0RF Continued omeprazole 20 mg capsule,delayed release(DR/EC) See Rx Instructions .ROUTE .COMPLEX Qty: 90 3RF Dose Instruction: take 1 capsule by mouth once daily Rx Instructions: take 1 capsule by mouth once daily temazepam 30 mg capsule 30 mg PO DAILY 30 Days Qty: 30 0RF metformin 500 mg tablet See Rx Instructions .ROUTE .COMPLEX Qty: 180 3RF Dose Instruction: take 1 tablet by mouth twice a day with meals Rx Instructions: take 1 tablet by mouth twice a day with meals lisinopril 5 mg tablet See Rx Instructions .ROUTE .COMPLEX Qty: 90 1RF Dose Instruction: take 1 tablet by mouth once daily Rx Instructions: take 1 tablet by mouth once daily insulin glargine U-300 conc [Toujeo SoloStar U-300 Insulin] 300 unit/mL (1.5 mL) insulin pen 20 unit SUBCUT DAILY insulin lispro 100 unit/mL insulin pen See Rx Instructions SUBCUT ACHS Rx Instructions: subcutaneously before meals and at bedtime; 1:50 corrective scale (expect up to 20 units/day) pioglitazone 15 mg Tablet 15 mg PO DAILY aspirin 81 mg Tablet,Delayed Release (Dr/Ec) 81 mg PO DAILY simvastatin 20 mg Tablet 20 mg PO DAILY folic acid 1 mg Tablet 1 mg PO DAILY Jardiance 25 mg Tablet 25 mg PO DAILY Ozempic 0.25 mg or 0.5 mg(2 mg/1.5 mL) Pen Injector 1 mg SUBCUT QWEEK Rx Instructions: Saturday multivitamin Tablet 1 tab PO DAILY docusate sodium [Stool Softener] 100 mg capsule 100 mg PO DAILY nortriptyline 50 mg capsule 100 mg PO DAILY (DME) flash glucose sensor [FreeStyle [place] 14 Day Sensor] .Route (DME) pen needle, diabetic [Sure-Fine Pen [place]] .Route (DME) FreeStyle [place] 14 Day Sensor Kit See Rx Instructions .ROUTE .MEDSUPPLY Qty: 2 5RF Rx Instructions: As directed Change every 14 days Follow Up: Darrell Ch MD [Active Staff] - (Follow Up in4 weeks, call the office for appointment next Business Day after discharge) Tolu Salinas APRN [Nurse Practitioner] - 09/17/23 1:00 pm (Follow-up with your Primary Care Provider as previously scheduled. ) Exam Physical Exam Narrative: BP: 113/71; Pulse: 65; Temp: 36.4C; RR: 16; SpO2: 96% [On RA] GEN: Pleasant, Cooperative, Not in acute distress. LUNGS: CTA. normal respiratory effort. CV: S1S2 nl, ? M/R/G ABD: Soft, ND, NT, + BS, ? HSM EXT: no calf muscle tenderness. NEURO: ? FND PSYCH: nl affect Diagnostic Studies Completed and Pending Studies Labs on day of discharge: 09/14/23 11:12: POC Glucose 168 09/14/23 06:27: POC Glucose 131, POC Glucose Comment Glu2: cleaned meter 09/13/23 20:32: POC Glucose 149, POC Glucose Comment Glu2: cleaned meter 09/13/23 16:17: POC Glucose 141 09/13/23 06:40: TSH 3rd Generation 2.48 Documented By: Elva Florian MD 09/14/23 1416 Signed By: <Electronically signed by Elva Florian MD> 09/15/23 0117 [facility] Work Phone: evaluation noteNo InformationNocitizens memorial [facility] Mention Mobile Other Evaluation note* Diagnosis Onset Date Resolution Status Cholelithiasis acute Emphysematous cystitis acute Pyelonephritis acute Right lateral abdominal pain acute [facility] Work Phone: evaluation noteNo assessment information available [facility] Work Phone: evaluation note* Diagnosis Onset Date Resolution Status [id number] acute Dietary counseling and surveillance acute Hyperlipidemia acute Hypertension acute Insulin long-term use acute Peripheral neuropathy acute Type 2 diabetes mellitus acu te Vitamin B 12 deficiency acut e [facility] Work Phone: evaluation note* Diagnosis Onset Date Resolution Status BMI 28.0-28.9,adult acute [id number] acute Dietary counseling and surveillance acute Hyperlipidemia acute Hypertension acute Insulin long-term use acute Peripheral neuropathy acute Type 2 diabetes mellitus acu te Vitamin B 12 deficiency acut e [facility] Work Phone: evaluation note* Diagnosis Onset Date Resolution Status BMI 28.0-28.9,adult acute [id number] acute Dietary counseling and surveillance acute Hyperlipidemia acute Hypertension acute Insulin long-term use acute Peripheral neuropathy acute Type 2 diabetes mellitus acu te Vitamin B 12 deficiency acut e Dizziness acute Hypertension acute Primary insomnia acute Type 2 diabetes mellitus acu te [facility] Work Phone: Evaluation note* Diagnosis Onset Date Resolution Status BMI 28.0-28.9,adult acute [id number] acute Dietary counseling and surveillance acute Hyperlipidemia acute Hypertension acute Insulin long-term use acute Peripheral neuropathy acute Type 2 diabetes mellitus acu te Vitamin B 12 deficiency acut e Dizziness acute Hypertension acute Primary insomnia acute Type 2 diabetes mellitus acu te PAD (peripheral artery disease) acute [facility] Work Phone: Evaluation note* Diagnosis Onset Date Resolution Status PAD (peripheral artery disease) acute BMI 28.0-28.9,adult acute [id number] acute Dietary counseling and surveillance acute Hyperlipidemia acute Hypertension acute Peripheral neuropathy acute Tachycardia acute Type 2 diabetes mellitus acu te Vitamin B 12 deficiency acut e Atrial flutter with rapid ventricular response acute Chest pain acute Hyperlipidemia acute Hypertension acute New onset atrial flutter acu te Type 2 diabetes mellitus acu te [facility] Work Phone: Evaluation note* Diagnosis Onset Date Resolution Status PAD (peripheral artery disease) acute BMI 28.0-28.9,adult acute [id number] acute Dietary counseling and surveillance acute Hyperlipidemia acute Hypertension acute Peripheral neuropathy acute Tachycardia acute Type 2 diabetes mellitus acu te Vitamin B 12 deficiency acut e Atrial flutter with rapid ventricular response acute Chest pain acute Hyperlipidemia acute Hypertension acute New onset atrial flutter acu te Type 2 diabetes mellitus acu te New onset atrial flutter acu te Mobility impaired noneactive [facility] Work Phone: Evaluation note* Diagnosis Typical atrial flutter (Multi) Nonischemic cardiomyopathy (Multi) Other primary cardiomyopathies Hypertension, unspecified type Hypercholesteremia Pure hypercholesterolemia Smoker Tobacco use disorder Type 2 diabetes mellitus with other specified complication, unspecified whether senior care insulin use (Multi) BMI 28.0-28.9,adult documented in this encounter [facility] Work Phone: Evaluation note* Diagnosis Onset Date Resolution Status BMI 28.0-28.9,adult acute [id number] acute Dietary counseling and surveillance acute Hyperlipidemia acute Hypertension acute Peripheral neuropathy acute Tachycardia acute Type 2 diabetes mellitus acu te Vitamin B 12 deficiency acut e Hyperlipidemia acute Hypertension acute New onset atrial flutter acu te Type 2 diabetes mellitus acu te Atrial flutter with rapid ventricular response resolved Chest pain resolved Hospital discharge follow-up acute New onset atrial flutter acu te Primary insomnia acute Type 2 diabetes mellitus acu te Mobility impaired noneactive [facility] Work Phone: Evaluation note* Diagnosis Onset Date Resolution Status BMI 28.0-28.9,adult acute [id number] acute Dietary counseling and surveillance acute Hyperlipidemia acute Hypertension acute Peripheral neuropathy acute Tachycardia acute Type 2 diabetes mellitus acu te Vitamin B 12 deficiency acut e Hyperlipidemia acute Hypertension acute New onset atrial flutter acu te Type 2 diabetes mellitus acu te Atrial flutter with rapid ventricular response resolved Chest pain resolved Hospital discharge follow-up acute New onset atrial flutter acu te Primary insomnia acute Type 2 diabetes mellitus acu te Mobility impaired noneactive Ambulatory dysfunction acute Hypomagnesemia acute Hypothyroid acute Type 2 diabetes mellitus with hyperglycemia acute Weakness acute [facility] Work Phone: Evaluation note* Diagnosis Onset Date Resolution Status BMI 28.0-28.9,adult acute [id number] acute Dietary counseling and surveillance acute Hyperlipidemia acute Hypertension acute Peripheral neuropathy acute Tachycardia acute Type 2 diabetes mellitus acu te Vitamin B 12 deficiency acut e Hyperlipidemia acute Hypertension acute New onset atrial flutter acu te Type 2 diabetes mellitus acu te Atrial flutter with rapid ventricular response resolved Chest pain resolved Hospital discharge follow-up acute New onset atrial flutter acu te Primary insomnia acute Type 2 diabetes mellitus acu te Mobility impaired noneactive Ambulatory dysfunction acute Hypomagnesemia acute Hypothyroid acute Type 2 diabetes mellitus with hyperglycemia acute Vitamin B 12 deficiency acut e Weakness acute [facility] Work Phone: evaluation note* Diagnosis Onset Date Resolution Status BMI 28.0-28.9,adult acute [id number] acute Dietary counseling and surveillance acute Hyperlipidemia acute Hypertension acute Peripheral neuropathy acute Tachycardia acute Type 2 diabetes mellitus acu te Vitamin B 12 deficiency acut e Hyperlipidemia acute Hypertension acute New onset atrial flutter acu te Type 2 diabetes mellitus acu te Atrial flutter with rapid ventricular response resolved Chest pain resolved Hospital discharge follow-up acute New onset atrial flutter acu te Primary insomnia acute Type 2 diabetes mellitus acu te Mobility impaired noneactive Ambulatory dysfunction acute Hypomagnesemia acute Hypothyroid acute Type 2 diabetes mellitus with hyperglycemia acute Vitamin B 12 deficiency acut e Weakness acute BMI 28.0-28.9,adult acute [id number] acute Dietary counseling and surveillance acute Hyperlipidemia acute Hypertension acute Peripheral neuropathy acute Type 2 diabetes mellitus acu te Vitamin B 12 deficiency [facility] Work Phone: Evaluation note* Diagnosis Onset Date Resolution Status BMI 28.0-28.9,adult acute [id number] acute Dietary counseling and surveillance acute Hyperlipidemia acute Hypertension acute Peripheral neuropathy acute Tachycardia acute Type 2 diabetes mellitus acu te Vitamin B 12 deficiency acut e Hyperlipidemia acute Hypertension acute New onset atrial flutter acu te Type 2 diabetes mellitus acu te Atrial flutter with rapid ventricular response resolved Chest pain resolved Hospital discharge follow-up acute New onset atrial flutter acu te Primary insomnia acute Type 2 diabetes mellitus acu te Mobility impaired noneactive Ambulatory dysfunction acute Hypomagnesemia acute Hypothyroid acute Type 2 diabetes mellitus with hyperglycemia acute Vitamin B 12 deficiency acut e Weakness acute Abnormal thyroid blood test acute BMI 28.0-28.9,adult acute [id number] acute Dietary counseling and surveillance acute Hyperlipidemia acute Hypertension acute Peripheral neuropathy acute Type 2 diabetes mellitus acu te Vitamin B 12 deficiency [facility] Work Phone: Evaluation note* Diagnosis Onset Date Resolution Status BMI 28.0-28.9,adult acute [id number] acute Dietary counseling and surveillance acute Hyperlipidemia acute Hypertension acute Peripheral neuropathy acute Tachycardia acute Type 2 diabetes mellitus acu te Vitamin B 12 deficiency acut e Hyperlipidemia acute Hypertension acute New onset atrial flutter acu te Type 2 diabetes mellitus acu te Atrial flutter with rapid ventricular response resolved Chest pain resolved Hospital discharge follow-up acute New onset atrial flutter acu te Primary insomnia acute Type 2 diabetes mellitus acu te Mobility impaired noneactive Ambulatory dysfunction acute Hypomagnesemia acute Hypothyroid acute Type 2 diabetes mellitus with hyperglycemia acute Vitamin B 12 deficiency acut e Weakness acute Abnormal thyroid blood test acute BMI 28.0-28.9,adult acute [id number] acute Dietary counseling and surveillance acute Hyperlipidemia acute Hypertension acute Peripheral neuropathy acute Type 2 diabetes mellitus acu te Vitamin B 12 deficiency acut e Hospital discharge follow-up acute Hypomagnesemia acute [facility] Work Phone: Evaluation note* Diagnosis Onset Date Resolution Status Ambulatory dysfunction acute Hypomagnesemia acute Hypothyroid acute Type 2 diabetes mellitus with hyperglycemia acute Vitamin B 12 deficiency acut e Weakness acute Abnormal thyroid blood test acute BMI 28.0-28.9,adult acute [id number] acute Dietary counseling and surveillance acute Hyperlipidemia acute Hypertension acute Peripheral neuropathy acute Type 2 diabetes mellitus acu te Vitamin B 12 deficiency acut e Hospital discharge follow-up acute Hypomagnesemia [facility] Work Phone: Evaluation note* Diagnosis Ulcer of right foot, limited to breakdown of skin (CMS/HCC)- Primary Blister of right foot, subsequent encounter 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) documented in this encounter [facility] Author Shira Stephen [facility] December 09, 2021 11:38am Note Date/Time December 09, 2021 11 :38am [facility] [address] [place] [address] Hospitalist H&P Signed Patient: Kerry Gay MR#: [id number] : 1955 Acct:[id number] Age/Sex: 66 / F Adm Date: 2 Loc: ER Room: Type: [facility] ER Attending Dr: Copies to: NON STAFF MD Tray Kay, DO~ HPI DATE OF EXAMINATION: 12/09/21 CHIEF COMPLAINT: Abdominal pain HISTORY OF PRESENT ILLNESS: Patient is 66-year-old female with past medical history of diabetes, hypertension presented to the ER with abrupt abdominal pain, patient was complaining of pain more in the right lower quadrant, radiating to the back, patient states that is been ongoing for the last couple of days, stated that shecould not tolerate it anymore so her advised her to come to ER. Patientdenies any nausea vomiting any burning urination, denies any fever chills, in the ER labs consistent with hemoglobin of 16.5, WBC 12.9, blood glucose 195, UA consistent with UTI, patient had ultrasoundAbdomen, which showed cholelithiasis and gallbladder sludge, diverticulosis and small amount of air within the urinary bladder, patient denies any history of recent catheterization, In the ER vitals were stable, patient was afebrile Review of Systems Review of Systems All other systems reviewed & are negative unless noted below or in HPI PMFSH Vaccinated for COVID-19?: No Medical History Diabetes Hypertension Surgical History H/O: hysterectomy Hx of tonsillectomy Family History Mother Heart disease Father Throat cancer Social History Smoking Status: Current every day smoker Tobacco Type: cigarettes Substance Use Type: None Meds Medications and Allergies Allergies Sulfa (Sulfonamide Antibiotics) Allergy (Verified 12/09/21 07:01) Vomiting Home Medications aspirin 81 mg tablet,delayed release 81 mg PO DAILY 02/09/21 [History Confirmed 02/09/21] cyanocobalamin (vitamin B-12) 1,000 mcg tablet (Vitamin B-12) 1,000 mcg PO DAILY02/09/21 [History Confirmed 02/09/21] docusate sodium 100 mg capsule (Stool Softener) 100 mg PO TID 02/09/21 [History Confirmed 02/09/21] empagliflozin 25 mg tablet (Jardiance) 25 mg PO DAILY 02/09/21 [History Confirmed 02/09/21] folic acid 1 mg tablet 1 mg PO DAILY 02/09/21 [History Confirmed 02/09/21] insulin lispro 100 unit/mL subcutaneous pen (Admelog SoloStar U-100 Insulin lispro) 1 sliding scale dose subcut USEASDIRECTD 02/09/21 [History Confirmed 02/09/21] lisinopril 10 mg tablet 10 mg PO DAILY 02/09/21 [History Confirmed 02/09/21] loratadine 10 mg tablet 10 mg PO DAILY 02/09/21 [History Confirmed 02/09/21] metformin 500 mg tablet 500 mg PO BID 02/09/21 [History Confirmed 02/09/21] metoclopramide HCl 10 mg tablet 10 mg PO DAILY 02/09/21 [History Confirmed 02/09/21] multivitamin 1 tab PO BID 02/09/21 [History Confirmed 02/09/21] nortriptyline 50 mg capsule 50 mg PO BID 02/09/21 [History Confirmed 02/09/21] omeprazole 20 mg tablet,delayed release 20 mg PO DAILY 02/09/21 [History Confirmed 02/09/21] pioglitazone 15 mg tablet 15 mg PO DAILY 02/09/21 [History Confirmed 02/09/21] semaglutide (Ozempic) 0.5 mg subcut QWEEK 02/09/21 [History Confirmed 02/09/21] simvastatin 20 mg tablet 20 mg PO DAILY 02/09/21 [History Confirmed 02/09/21] temazepam 30 mg capsule 30 mg PO QHS 02/09/21 [History Confirmed 02/09/21] Exam Physical Exam Vital Signs: Temp Pulse Resp BP Pulse Ox O2 Del Method 97.6 F 99 H 20 128/77 97 Room Air 12/09/21 07:00 12/09/21 07:00 12/09/21 07:00 12/09/21 07:00 12/09/21 07:00 12/09/21 07:00 Narrative: Patient alert oriented, no in acute distress, was seen and examined in the ER Clear breath sounds bilaterally, no wheezing or murmur appreciated Abdomen, soft, tenderness in right lower and right upper quadrant, costovertebral tenderness also present, Cardiovascular, regular rate and rhythm, no murmur appreciated Extremities no pedal edema appreciated Neurological, alert oriented x3, no focal neurological deficit present Skin, warm and dry. Results Lab Results Labs: Laboratory Last Values Corrected WBC 12.9 X10E3/uL (3.8-11.6) H 12/09/21 08:50 Uncorrected WBC Count 12.9 x10E3/uL (4.5-11.0) H 12/09/21 08:50 RBC 5.25 x10E6/uL (3.60-5.00) H 12/09/21 08:50 Hgb 16.5 g/dL (11.8-15.4) H 12/09/21 08:50 Hct 49.8 % (34.0-46.4) H 12/09/21 08:50 MCV 94.9 fl (80-100) 12/09/21 08:50 MCH 31.5 pg (24.7-34.3) 12/09/21 08:50 MCHC 33.1 g/dL (32.0-35.0) 12/09/21 08:50 RDW 13.1 % (11.9-15.3) 12/09/21 08:50 Plt Count 208 x10E3/uL (150-450) 12/09/21 08:50 MPV 9.5 fl (6.3-10.7) 12/09/21 08:50 Neut % (Auto) 79.8 % (.) 12/09/21 08:50 Lymph % (Auto) 9.6 % (.) 12/09/21 08:50 [place] % (Auto) 9.1 % (.) 12/09/21 08:50 Eos % (Auto) 1.1 % (.) 12/09/21 08:50 Baso % (Auto) 0.4 % (.) 12/09/21 08:50 Neut # (Auto) 10.3 x10E3/uL (1.8-7.7) H 12/09/21 08:50 Lymph # (Auto) 1.2 x10E3/uL (1.00-4.8) 12/09/21 08:50 [place] # (Auto) 1.2 x10E3/uL (0.0-0.8) H 12/09/21 08:50 Eos # (Auto) 0.1 x10E3/uL (0.0-0.45) 12/09/21 08:50 Baso # (Auto) 0.1 x10E3/uL (0.0-0.2) 12/09/21 08:50 Nucleated RBC % (auto) 0.0 % (0-0.5) 12/09/21 08:50 PHA Creatinine Clear 78.16 12/09/21 08:50 Sodium 139 mmol/L (136-146) 12/09/21 08:50 Potassium 3.9 mmol/L (3.5-5.1) 12/09/21 08:50 Chloride 101 mmol/L (95-114) 12/09/21 08:50 Carbon Dioxide 27.4 mmol/L (22.0-30.0) 12/09/21 08:50 BUN 8 mg/dL (9-23) L 12/09/21 08:50 Creatinine 0.81 mg/dL (0.44-1.03) 12/09/21 08:50 Est GFR ( Amer) > 60 mL/Min 12/09/21 08:50 Est GFR (Non-Af Amer) > 60 mL/Min 12/09/21 08:50 Glucose 185 mg/dL (70-100) H 12/09/21 08:50 Calcium 10.1 mg/dL (8.2-10.2) 12/09/21 08:50 Total Bilirubin 0.7 mg/dL (0.3-1.2) 12/09/21 08:50 AST 24 U/L (10-42) 12/09/21 08:50 ALT 22 U/L (10-60) 12/09/21 08:50 Alkaline Phosphatase 103 U/L (32-92) H 12/09/21 08:50 Total Protein 7.2 gm/dL (6.1-7.9) 12/09/21 08:50 Albumin 3.9 gm/dL (3.2-5.5) 12/09/21 08:50 Globulin 3.3 gm/dL 12/09/21 08:50 Albumin/Globulin Ratio 1.2 12/09/21 08:50 Urine Color Yellow (Yellow) 12/09/21 08:35 Urine Appearance Cloudy (Clear) A 12/09/21 08:35 Urine pH 5.5 (5.0-9.0) 12/09/21 08:35 Ur Specific [place] 1.030 (1.001-1.030) 12/09/21 08:35 Urine Protein Negative mg/dL (Negative) 12/09/21 08:35 Urine Glucose (UA) >=1000 mg/dL (Normal) H 12/09/21 08:35 Urine Ketones Negative (Negative) 12/09/21 08:35 Urine Occult Blood Trace (Negative) H 12/09/21 08:35 Urine Nitrite Positive (Negative) H 12/09/21 08:35 Urine Bilirubin Negative (Negative) 12/09/21 08:35 Urine Urobilinogen Normal mg/dL (Normal) 12/09/21 08:35 Ur Leukocyte Esterase 2+ (Negative) H 12/09/21 08:35 Urine RBC 5-9 /HPF (0-4) H 12/09/21 08:35 Urine WBC 50-100 /HPF (0-4) H 12/09/21 08:35 Ur Squamous Epith Cells 10-19 /HPF (0-2) H 12/09/21 08:35 Urine Bacteria 4+ (None Seen) H 12/09/21 08:35 Hyaline Casts None seen /LPF (0-1) 12/09/21 08:35 Other Casts None seen /LPF (None Seen) 12/09/21 08:35 SARS Antigen (LFIA) Negative (Negative) 12/09/21 10:25 Microbiology Results Micro: Microbiology - Results from entire visit 12/09/21 10:25 Nasal SARS Antigen (LFIA) - Final A&P - Hospitalist Assessment/Plan (1) Pyelonephritis: (2) Emphysematous cystitis: Plan Abdominal pain likely secondary to underlying cystitis/pyelonephritis, d doubt cholecystitis, patient LFTs are normal, patient does have tenderness in the right upper quadrant, CT abdomen did not show any sign of Couriel cystitis, check ultrasound gallbladder We will start Rocephin for now Gentle hydration Monitor cultures Leukocytosis likely secondary to above Polycythemia secondary to history of tobacco abuse/hemoconcentration continue tomonitor CBC daily History of diabetes, patient on metformin Jardiance insulin and pioglitazone, hold onto metformin and Jardiance for now History of hypertension, patient on lisinopril 10, blood pressure on the borderline lower side, will gradually resume DVT prophylaxis Documented By: Shira Stephen MD 12/09/21 113 Signed By: <Electronically signed by Shira Stephen MD> 12/09/218 [facility] Work Phone: History and physical note Author Jluis Campos [facility] November 10, 2023 6:20am Note Date/Time November 10, 2023 6:[address] [facility] [address] [place] [address] Hospitalist H&P Signed Patient: Kerry Gay MR#: [id number] : 1955 Acct:[id number] Age/Sex: 67 / F Adm Date: 4 Loc: 4N Room: 8E4527-7 Type: ADM IN Attending Dr: Jluis Campos DO Copies to: Sandra Keita, DO Jluis Campos, DO~ HPI DATE OF EXAMINATION: 11/10/23 CHIEF COMPLAINT: weakness HISTORY OF PRESENT ILLNESS: Miss Gay is a 67-year-old female with a past medical history of GERD, hypertension, hyperlipidemia, atrial fibrillation status post cardioversion, peripheral neuropathy, and vitamin B12 efficiency who presents to hospital due to chief complaint of sudden onset extreme weakness at home leg shaking. The patient is present with her daughter, states that starting Saturday morning the patient began experiencing sudden onset weakness while ambulating with her walker, at baseline she did start his walker and she does walk slowly, she states she had been feeling weak for quite a while and noticed that she felt that her muscles were getting smaller and suddenly Saturday when she tried to stand up her leg started shaking severely and she was unable to stand, she had 2 falls at home. She denies hitting her head. She did see a neurologist for this I believe she said the date was October 29, a battery of tests were performed including PO which was positive, and it appears that a majority of the test were negative, the daughter in the room says that the lab was not able to able to finish running all of the blood test because they did not receive enough blood samples. She did note that the TSH was elevated on October 29,she is currently not taking any supplementation for that. Patient denies any new medications, most recently was Lyrica this started almost a month ago, she has been stable on her other medications for a a while now. There is also a small degree of concern for stroke status post cardioversion. Review of Systems Review of Systems All other systems reviewed & are negative unless noted below or in HPI [facility] Medical History History of esophageal stricture BMI 28.0-28.9,adult Cigarette nicotine dependence GERD (gastroesophageal reflux disease) Obesity Hypertension Diabetes Hyperlipidemia Type 2 diabetes mellitus Chronic kidney disease (CKD) stage G2/A2, mildly decreased glomerular filtrationrate (GFR) between 60-89 mL/min/1.73 square meter and albuminuria creatinine ratio between 30-299 mg/g Peripheral neuropathy Insulin long-term use Dietary counseling and surveillance Vitamin B 12 deficiency Surgical History History of foot surgery History of blepharoplasty History of bilateral cataract extraction Hx of cholecystectomy H/O: hysterectomy Hx of tonsillectomy Family History Father Heart disease History of stroke Legacy FamHx Problem: Diagnosed with Stroke Cancer throat heart disease Mother heart attack Heart disease Hypertension Son Diabetes Sister complications from fall/hit head on sink Brother complications from covid Social History Smoking Status: Current every day smoker Tobacco Type: cigarettes Substance Use Type: None Meds Medications and Allergies Allergies Sulfa (Sulfonamide Antibiotics) Allergy (Verified 11/09/23 22:07) Vomiting Home Medications aspirin 81 mg tablet,delayed release 81 mg PO DAILY 02/09/21 [History Confirmed 11/09/23] empagliflozin 25 mg tablet (Jardiance) 25 mg PO DAILY 02/09/21 [History Confirmed 11/09/23] pioglitazone 15 mg tablet 15 mg PO DAILY 02/09/21 [History Confirmed 11/09/23] semaglutide 0.25 mg or 0.5 mg (2 mg/1.5 mL) subcutaneous pen injector (Ozempic) 1 mg subcut QWEEK 02/09/21 [History Confirmed 11/09/23] simvastatin 20 mg tablet 20 mg PO DAILY 02/09/21 [History Confirmed 11/09/23] docusate sodium 100 mg capsule (Stool Softener) 100 mg PO DAILY 06/12/23 [History Confirmed 11/09/23] insulin glargine U-300 conc 300 unit/mL (1.5 mL) subcutaneous pen (Toujeo SoloStar U-300 Insulin) 20 unit subcut DAILY 06/12/23 [History Confirmed 11/09/23] insulin lispro 100 unit/mL subcutaneous pen See Rx Instructions subcut ACHS 06/12/23 [History Confirmed 11/09/23] multivitamin 1 tab PO DAILY 06/12/23 [History Confirmed 11/09/23] pen needle, diabetic [Sure-Fine Pen [place]] 06/12/23 [History Confirmed 11/09/23] omeprazole 20 mg capsule,delayed release See Rx Instructions .Route .COMPLEX #90caps 07/01/23 [Rx Confirmed 11/09/23] flash glucose sensor (FreeStyle [place] 14 Day Sensor kit) #2 ea 07/22/23 [Rx Confirmed 11/09/23] metformin 500 mg tablet See Rx Instructions .Route .COMPLEX #180 tabs 08/26/23 [Rx Confirmed 11/09/23] apixaban 5 mg tablet (Eliquis) 5 mg PO BID #60 tabs 09/14/23 [Rx Confirmed 11/09/23] magnesium oxide 400 mg (241.3 mg magnesium) tablet (MagOx) 400 mg PO DAILY #30 tabs 09/14/23 [Rx Confirmed 11/09/23] miscellaneous medical supply #1 ea 09/30/23 [Rx Confirmed 11/09/23] folic acid 1 mg tablet 1 mg PO DAILY 90 days #90 tabs 10/16/23 [Rx Confirmed 11/09/23] nortriptyline 50 mg capsule 100 mg (2 x 50 mg) PO DAILY 90 days #180 caps 10/16/23 [Rx Confirmed 11/09/23] amiodarone 200 mg tablet 200 mg PO BID 11/04/23 [History Confirmed 11/09/23] metoprolol succinate 50 mg tablet,extended release 24 hr 50 mg PO TID 11/04/23 [History Confirmed 11/09/23] temazepam 30 mg capsule 30 mg PO DAILY 30 days #30 caps 11/08/23 [Rx Confirmed 11/09/23] Exam Physical Exam Vital Signs: Temp Pulse Resp BP Pulse Ox O2 Del Method 98.1 F 62 18 144/67 H 100 Room Air 11/10/23 03:44 11/10/23 05:05 11/10/23 05:05 11/10/23 05:05 11/10/23 05:05 11/10/23 05:05 Narrative: General: Awake alert, no acute distress HEENT: head atraumatic, normocephalic, moist mucous membranes Neck: supple no masses, no lymphadenopathy CVS: regular rate and rhythm, no murmurs or gallops Respiratory: clear to auscultation bilaterally, no wheezing or crackles, symmetric expansion GI: soft, nondistended, nontender, positive bowel sounds with no organomegaly Extremity: moves all extremities, no restrictions of movements, no focal weaknesses were noted, patient unable to ambulate. Behi-da-thth test was normal. No tremors or ataxia with bcrobs-vy-ngef movements. Neuro: AOx3, CN II-VII intact. Moves all extremities in all planes of motion. Skin: dry, intact no rashes or lesions Results - Hospitalist H&P Lab Results Labs: Laboratory Last Values Corrected WBC 8.5 X10E3/uL (3.8-11.6) 11/10/23 03:41 Uncorrected WBC Count 8.5 x10E3/uL (3.8-11.6) 11/10/23 03:41 RBC 4.59 X10E6/uL (3.60-5.00) 11/10/23 03:41 Hgb 15.0 g/dL (11.8-15.4) 11/10/23 03:41 Hct 44.9 % (34.0-46.4) 11/10/23 03:41 MCV 97.8 fl (80-100) 11/10/23 03:41 MCH 32.6 pg (24.7-34.3) 11/10/23 03:41 MCHC 33.3 g/dL (32.0-35.0) 11/10/23 03:41 RDW 13.5 % (11.9-15.3) 11/10/23 03:41 Plt Count 149 x10E3/uL (150-450) L 11/10/23 03:41 MPV 8.7 fl (6.3-10.7) 11/10/23 03:41 Neut % (Auto) 61.2 % (.) 11/10/23 03:41 Lymph % (Auto) 26.0 % (.) 11/10/23 03:41 [place] % (Auto) 8.2 % (.) 11/10/23 03:41 Eos % (Auto) 3.7 % (.) 11/10/23 03:41 Baso % (Auto) 0.9 % (.) 11/10/23 03:41 Nucleat RBC Rel Count 0.1 /100 WBC (0-0.5) 11/10/23 03:41 Neut # (Auto) 5.2 x10E3/uL (1.8-7.7) 11/10/23 03:41 Lymph # (Auto) 2.2 x10E3/uL (1.00-4.8) 11/10/23 03:41 [place] # (Auto) 0.7 x10E3/uL (0.0-0.8) 11/10/23 03:41 Eos # (Auto) 0.3 x10E3/uL (0.0-0.45) 11/10/23 03:41 Baso # (Auto) 0.1 x10E3/uL (0.0-0.2) 11/10/23 03:41 Monocyte Dist Width 19.74 % (0.00-20.00) 11/10/23 03:41 PHA Creatinine Clear 66.28 11/10/23 04:10 Sodium 137 mmol/L (136-145) 11/10/23 04:10 Potassium 4.6 mmol/L (3.5-5.1) 11/10/23 04:10 Chloride 105 mmol/L (98-107) 11/10/23 04:10 Carbon Dioxide 25.4 mmol/L (21.0-31.0) 11/10/23 04:10 Anion Gap 11.2 mEq/L (6.0-15.0) 11/10/23 04:10 BUN 14 mg/dL (7-25) 11/10/23 04:10 Creatinine 0.93 mg/dL (0.60-1.20) 11/10/23 04:10 Est GFR (CKD-EPI) > 60.0 mL/Min 11/10/23 04:10 Glucose 95 mg/dL (70-100) 11/10/23 04:10 POC Glucose 139 mg/dl 11/09/23 22:17 Calcium 9.6 mg/dL (8.6-10.3) 11/10/23 04:10 Magnesium 1.7 mg/dL (1.9-2.7) L 11/10/23 04:10 Total Bilirubin 0.4 mg/dl (0.3-1.0) 11/10/23 04:10 AST 29 U/L (13-39) 11/10/23 04:10 ALT 19 U/L (7-52) 11/10/23 04:10 Alkaline Phosphatase 60 U/L (34-104) 11/10/23 04:10 Total Creatine Kinase 69 U/L (30-223) 11/10/23 04:10 Total Protein 7.1 gm/dL (6.4-8.9) 11/10/23 04:10 Albumin 4.2 gm/dL (3.5-5.7) 11/10/23 04:10 Globulin 2.9 gm/dL 11/10/23 04:10 Albumin/Globulin Ratio 1.4 11/10/23 04:10 Urine Color Light-yellow (Yellow) 11/10/23 05:02 Urine Appearance Clear (Clear) 11/10/23 05:02 Urine pH 6.0 (5.0-9.0) 11/10/23 05:02 Ur Specific [place] 1.007 (1.001-1.030) 11/10/23 05:02 Urine Protein Negative mg/dL (Negative) 11/10/23 05:02 Urine Glucose (UA) 1000 mg/dL (Normal) H 11/10/23 05:02 Urine Ketones Negative (Negative) 11/10/23 05:02 Urine Occult Blood Negative (Negative) 11/10/23 05:02 Urine Nitrite Negative (Negative) 11/10/23 05:02 Urine Bilirubin Negative (Negative) 11/10/23 05:02 Urine Urobilinogen Normal mg/dL (Normal) 11/10/23 05:02 Ur Leukocyte Esterase 4+ (Negative) H 11/10/23 05:02 Urine RBC 5-9 /HPF (0-4) H 11/10/23 05:02 Urine WBC 20-49 /HPF (0-4) H 11/10/23 05:02 Urine WBC Clumps Occasional /LPF (None Seen) H 11/10/23 05:02 Ur Squamous Epith Cells 5-9 /HPF (0-2) H 11/10/23 05:02 Urine Bacteria 1+ /HPF (None Seen) H 11/10/23 05:02 Hyaline Casts None /LPF (0-8) 11/10/23 05:02 Assessment & Plan Assessment/Plan (1) Weakness: Plan: ? Patient presents with sudden onset weakness starting Saturday morning, she is currently unable to ambulate even with assistance of a walker secondary to profound weakness and leg shaking. Status post 2 falls at home. ? Recently had a positive PO with her neurologist Dr. Kincaid adenomas ? Recent cardioversion on November 04, no recent medication changes with this ? Checking TSH, it was recently elevated and currently the patient is not on levothyroxine, will plan to initiate levothyroxine therapy if it is still elevated ? Checking folic acid, B12. Her last A1c was 6.6 on October 29 ? Recent CPK was normal, patient does endorse weight loss though this is likely attributed to her Ozempic therapy ? PT OT consulted (2) Hypomagnesemia: Plan: 1.6 on admission, replenish as necessary (3) Type 2 diabetes mellitus with hyperglycemia: Plan: ? Continue home medications and add sliding scale insulin if needed (4) Hypothyroid: Plan: See above (5) Ambulatory dysfunction: Plan: See above Plan ? DVT prophylaxis addressed ? Regular diet ? Full code IP vs OBS Justification Based on differential dx, clinical care plan, and risk of adverse events, if untreated, in my clinical judgement this patient requires an acute care setting as: INPATIENT because of an expectation of an over 2 midnight stay. Estimated length of stay (# of days): 3 Documented By: Jluis Campos DO 11/10/23 0607 Signed By: <Electronically signed by Jluis Campos DO> 11/10/23 0620 [facility] Work Phone: [facility] general Narrative - Reported* Type Description Date Medical History HTN Medical History Diabetes Medical History Obesity Medical History HLP Medical History tonsillectomy Medical History hysterectomy Medical History Cataracts removed Bilateral Medical History Upper eye lift Surgical History tonsillectomy Surgical History hysterectomy Surgical History cataracts, bilaterally Surgical History eye lid surgery Surgical History removed cervix 12/2018 [email or web address] Other [facility] general Narrative - Reported* Type Description Date Medical History HTN Medical History Diabetes Medical History Obesity Medical History HLP Medical History tonsillectomy Medical History hysterectomy Medical History Cataracts removed Bilateral Medical History Upper eye lift Surgical History tonsillectomy Surgical History hysterectomy Surgical History cataracts, bilaterally Surgical History eye lid surgery Surgical History removed cervix 12/2018 Hospitalization History See Above [email or web address] Other [facility] general Narrative - Reported* Type Description Date Medical History HTN Medical History Diabetes Medical History Obesity Medical History HLP Medical History tonsillectomy Medical History hysterectomy Medical History Cataracts removed Bilateral Medical History Upper eye lift Surgical History tonsillectomy Surgical History partial hysterectomy Surgical History cataracts, bilaterally Surgical History eye lid surgery--bilateral Surgical History removed cervix 12/2018 Hospitalization History See Above [email or web address] Other [facility] general Narrative - Reported* Type Description Date Medical History HTN Medical History Diabetes Medical History Obesity Medical History HLP Medical History tonsillectomy Medical History hysterectomy Medical History Cataracts removed Bilateral Medical History Upper eye lift Surgical History tonsillectomy Surgical History partial hysterectomy Surgical History cataracts, bilaterally Surgical History eye lid surgery--bilateral Surgical History removed cervix 12/2018 Surgical History Cholecystectomy 11/2021 Surgical History Left foot and great toe surgery 12/29/2021 Hospitalization History See Above Hospitalization History UTI and gallbladder jami yusef 11/2021 [email or web address] Other [facility] general Narrative - Reported* Type Description Date Medical History HTN Medical History Diabetes Medical History Obesity Medical History HLP Medical History tonsillectomy Medical History hysterectomy Medical History Cataracts removed Bilateral Medical History Upper eye lift Surgical History tonsillectomy Surgical History partial hysterectomy Surgical History cataracts, bilaterally Surgical History eye lid surgery--bilateral Surgical History removed cervix 12/2018 Surgical History Cholecystectomy 12/12/21 Surgical History Left foot and great toe surgery 12/29/2021 Hospitalization History See Above Hospitalization History UTI and gallbladder jami yusef 11/2021 [email or web address]: [facility] Work Phone: [facility] Work Phone: [facility] Work Phone: Hospital Discharge instructionsAmbulatory Orders* Initiate Home Health Time Frame: 1 Day, Location: Determined By Patient Additional Instructions Home Health to manage care: - Full code - PT/OT eval and treat - Routine vital signs - Medication management and education - Provide education on high risk fall precautions - Fingerstick blood sugar ACHS - Monitor cardio assessment -- bradycardia, h/o afib - Care to be managed by PCP [facility] Work Phone: Progress note Author Shira Stephen [facility] December 10, 2021 11:26am Note Date/Time December 10, 2021 11 :26am [facility] [address] [place] [address] Hospitalist Progress Note Signed Patient: Kerry Gay MR#: [id number] : 1955 Acct:[id number] Age/Sex: 66 / F Adm Date: 2 Loc: 3T Room: [address] [place] [address] Type: ADM IN Attending Dr: Shira Stephen MD Copies to: ~ Date of Service: 12/10/2021 Subjective Subjective Narrative: Patient is 66-year-old female with past medical history of diabetes, hypertension presented to the ER with abrupt abdominal pain, patient was complaining of pain more in the right lower quadrant, radiating to the back, patient states that is been ongoing for the last couple of days, stated that shecould not tolerate it anymore so her advised her to come to ER. Patientdenies any nausea vomiting any burning urination, denies any fever chills, in the ER labs consistent with hemoglobin of 16.5, WBC 12.9, blood glucose 195, UA consistent with UTI, patient had ultrasoundAbdomen, which showed cholelithiasis and gallbladder sludge, diverticulosis and small amount of air within the urinary bladder, patient denies any history of recent catheterization, In the ER vitals were stable, patient was afebrile Interval history Patient seen and examined, no overnight issues reported, patient continues to complain of pain which is more in right lower quadrant, costovertebral tenderness present, patient has been afebrile Exam Physical Exam Vital Signs: Temp Pulse Resp BP Pulse Ox O2 Del Method 98.2 F 88 18 134/78 94 L Room Air 12/10/21 11:23 12/10/21 11:23 12/10/21 11:23 12/10/21 11:23 12/10/21 11:23 12/10/21 11:23 Narrative: Patient alert oriented, no in acute distress, Clear breath sounds bilaterally, no wheezing or murmur appreciated Abdomen, soft, tenderness in right lower quadrant, costovertebral tenderness also present, Cardiovascular, regular rate and rhythm, no murmur appreciated Extremities no pedal edema appreciated Neurological, alert oriented x3, no focal neurological deficit present Skin, warm and dry. Objective Lab Results CBC & Chem 7: 12/10/21 06:50 12/10/21 06:50 Microbiology Results Microbiology 12/09/21 08:35 Urine - Clean-Voided Midstream Urine Culture - Preliminary Gram Negative Bacilli 12/09/21 10:25 Nasal SARS Antigen (LFIA) - Final Meds Allergies and Active Meds Allergies Sulfa (Sulfonamide Antibiotics) Allergy (Verified 12/09/21 07:01) Vomiting Active Meds: Active Medications Generic Name Dose Route Start Last Admin Trade Name Sarkis PRN Reason Stop Dose Admin Acetaminophen 650 mg 12/09/21 11:19 Acetaminophen 325 Mg Tablet PO 12/09/22 11:18 Q6HR PRN Pain Scale 1 - 3 or fever Aspirin 81 mg 12/10/21 09:00 12/10/21 08:43 Aspirin 81 Mg Tablet. PO 12/10/22 08:59 81 mg DAILY PARMJIT Administration Atorvastatin Calcium 10 mg 12/10/21 09:00 12/10/21 08:43 Atorvastatin 10 Mg Tablet PO 12/10/22 08:59 10 mg DAILY PARMJIT Administration Dextrose 0 gm 12/09/21 11:19 Dextrose 50% In Water 25 Gm/50 Ml Syringe IV-PUSH 12/09/22 11:18 PRN PRN Hypoglycemia Enoxaparin Sodium 40 mg 12/10/21 10:00 12/10/21 09:00 Enoxaparin 40 Mg/0.4 Ml Syringe SUBCUT 12/10/22 09:59 Not Given DAILY@10 PARMJIT Glucose 0 gm 12/09/21 11:19 Dextrose 40% Gel 15 Gm Tube PO 12/09/22 11:18 PRN PRN Hypoglycemia Hydralazine HCl 10 mg 12/09/21 11:19 Hydralazine 20 Mg/Ml Vial IV-PUSH 12/09/22 11:18 Q4H PRN Hypertension Sodium Chloride 1,000 mls @ 75 mls/hr 12/09/21 11:30 12/10/21 09:59 0.9% Sodium Chloride 1,000 Ml IV 12/09/22 11:29 75 mls/hr .[id number] PARMJIT Administration Ceftriaxone Sodium 1 gm in 50 mls @ 100 mls/hr 12/10/21 10:30 12/10/21 09:59 Rocephin IV 100 mls/hr Q24H PARMJIT Administration Insulin Aspart 0 units 12/09/21 12:00 08/14/22 11:21 Insulin Aspart 300 Units/3 Ml Insuln.Pen SUBCUT 12/09/22 11:59 7 units TID.WM.HS PARMJIT Administration Protocol Morphine Sulfate 1 mg 12/09/21 17:48 12/10/21 08:41 Morphine Sulfate 2 Mg/Ml Vial IV-PUSH 1 mg Q4H PRN Administration pain Nortriptyline HCl 50 mg 12/09/21 21:00 12/10/21 08:43 Nortriptyline 25 Mg Capsule PO 12/09/22 20:59 50 mg BID PARMJIT Administration Omeprazole 20 mg 12/10/21 09:00 12/10/21 08:43 Omeprazole 20 Mg Capsule.Dr PO 12/10/22 08:59 20 mg DAILY PARMJIT Administration Ondansetron HCl 4 mg 12/09/21 11:19 Ondansetron 4 Mg/2 Ml Vial IV-PUSH 12/09/22 11:18 Q8H PRN Nausea And Vomiting Pioglitazone HCl 15 mg 12/10/21 09:00 12/10/21 08:43 Pioglitazone 15 Mg Tablet PO 12/10/22 08:59 15 mg DAILY PARMJIT Administration Potassium Chloride 40 meq 12/09/21 11:19 Potassium Chloride Er 20 Meq Tab.Er.Prt PO 12/09/22 11:18 DAILY PRN Hypokalemia Sodium Chloride 0 ml 12/09/21 07:00 12/10/21 08:41 Sodium Chloride 0.9 % 10 Ml Syringe IV-PUSH 12/09/22 06:59 10 ml PRN PRN Administration Flush Temazepam 30 mg 12/09/21 22:00 12/09/21 21:17 Temazepam 15 Mg Capsule PO 12/09/22 21:59 30 mg QHS PARMJIT Administration Tramadol HCl 50 mg 12/09/21 11:19 12/10/21 10:02 Tramadol 50 Mg Tablet PO 06/07/22 11:18 50 mg Q6H PRN Administration Pain Scale 4 - 7 A&P - Hospitalist Assessment/Plan (1) Pyelonephritis: (2) Emphysematous cystitis: Plan Abdominal pain likely secondary to underlying cystitis/pyelonephritis, d doubt cholecystitis, patient LFTs are normal, , CT abdomen did not show any sign of cholecystitis, ultrasound gallbladder done as well, Patient on Rocephin Urine culture growing gram-negative bacilli Final cultures pending Gentle hydration Leukocytosis resolved Polycythemia secondary to history of tobacco abuse/hemoconcentration continue tomonitor CBC daily : Improved History of diabetes, patient on metformin Jardiance insulin and pioglitazone, hold onto metformin and Jardiance for now : Blood sugars been better controlled History of hypertension, patient on lisinopril 10, blood pressure on the borderline lower side, will gradually resume DVT prophylaxis Documented By: Shira Stephen MD 12/10/21 1124 Signed By: <Electronically signed by Shira Stephen MD> 12/10/21 1126 [facility] Work Phone: Progress note Author Shira Stephen [facility] December 11, 2021 1:33pm Note Date/Time December 11, 2021 1: 30pm [facility] [address] [place] [address] Hospitalist Progress Note Signed Patient: Kerry Gay MR#: [id number] : 1955 Acct:[id number] Age/Sex: 66 / F Adm Date: 2 Loc: Room: [address] [place] [address] Type: ADM INOo Attending Dr: Shira Stephen MD Copies to: ~ Date of Service: 12/11/2021 Subjective Subjective Narrative: Patient is 66-year-old female with past medical history of diabetes, hypertension presented to the ER with abrupt abdominal pain, patient was complaining of pain more in the right lower quadrant, radiating to the back, patient states that is been ongoing for the last couple of days, stated that shecould not tolerate it anymore so her advised her to come to ER. Patientdenies any nausea vomiting any burning urination, denies any fever chills, in the ER labs consistent with hemoglobin of 16.5, WBC 12.9, blood glucose 195, UA consistent with UTI, patient had ultrasoundAbdomen, which showed cholelithiasis and gallbladder sludge, diverticulosis and small amount of air within the urinary bladder, patient denies any history of recent catheterization, In the ER vitals were stable, patient was afebrile Interval history Patient seen and examined, patient continues to Continues to complain of abdominal pain, complaining of pain in the right upper right lower quadrant radiating to the back, patient is already on antibiotics, today is day 3, had positive Alarcon sign today, LFTs were normal, will consult general surgery,, Exam Physical Exam Vital Signs: Temp Pulse Resp BP Pulse Ox O2 Del Method 98.0 F 79 18 113/73 95 Room Air 12/11/21 11:32 12/11/21 11:32 12/11/21 11:32 12/11/21 11:32 12/11/21 11:32 12/11/21 11:32 Narrative: Patient alert oriented, no in acute distress, Clear breath sounds bilaterally, no wheezing or murmur appreciated Abdomen, soft, tenderness in right lower quadrant, costovertebral tenderness also present, Cardiovascular, regular rate and rhythm, no murmur appreciated Extremities no pedal edema appreciated Neurological, alert oriented x3, no focal neurological deficit present Skin, warm and dry. Objective Lab Results CBC & Chem 7: 12/10/21 06:50 12/10/21 06:50 Microbiology Results Microbiology 12/09/21 12:42 Blood - Right Antecubital Blood Culture - Preliminary No Growth 2 Days 12/09/21 12:39 Blood - Left Hand Blood Culture - Preliminary No Growth 2 Days 12/09/21 08:35 Urine - Clean-Voided Midstream Urine Culture - Final Escherichia coli Meds Allergies and Active Meds Allergies Sulfa (Sulfonamide Antibiotics) Allergy (Verified 12/09/21 07:01) Vomiting Active Meds: Active Medications Generic Name Dose Route Start Last Admin Trade Name Freq PRN Reason Stop Dose Admin Acetaminophen 650 mg 12/09/21 11:19 Acetaminophen 325 Mg Tablet PO 12/09/22 11:18 Q6HR PRN Pain Scale 1 - 3 or fever Aspirin 81 mg 12/10/21 09:00 12/11/21 08:00 Aspirin 81 Mg Tablet.Dr PO 12/10/22 08:59 81 mg DAILY PARMJIT Administration Atorvastatin Calcium 10 mg 12/10/21 09:00 12/11/21 08:00 Atorvastatin 10 Mg Tablet PO 12/10/22 08:59 10 mg DAILY PARMJIT Administration Dextrose 0 gm 12/09/21 11:19 Dextrose 50% In Water 25 Gm/50 Ml Syringe IV-PUSH 12/09/22 11:18 PRN PRN Hypoglycemia Enoxaparin Sodium 40 mg 12/10/21 10:00 12/11/21 09:19 Enoxaparin 40 Mg/0.4 Ml Syringe SUBCUT 12/10/22 09:59 Not Given DAILY@10 PARMJIT Glucose 0 gm 12/09/21 11:19 Dextrose 40% Gel 15 Gm Tube PO 12/09/22 11:18 PRN PRN Hypoglycemia Hydralazine HCl 10 mg 12/09/21 11:19 Hydralazine 20 Mg/Ml Vial IV-PUSH 12/09/22 11:18 Q4H PRN Hypertension Hydromorphone HCl 1 mg 12/10/21 11:23 12/11/21 06:42 Hydromorphone 1 Mg/Ml Syringe IV-PUSH 1 mg Q6H PRN Administration Pain Ceftriaxone Sodium 1 gm in 50 mls @ 100 mls/hr 12/10/21 10:30 12/11/21 10:15 Rocephin IV Infused Q24H PARMJIT Infusion Insulin Aspart 0 units 12/09/21 12:00 12/11/21 11:33 Insulin Aspart 300 Units/3 Ml Insuln.Pen SUBCUT 12/09/22 11:59 3 units TID.WM.HS PARMJIT Administration Protocol Nortriptyline HCl 50 mg 12/09/21 21:00 12/11/21 08:00 Nortriptyline 25 Mg Capsule PO 12/09/22 20:59 50 mg BID PARMJIT Administration Omeprazole 20 mg 12/10/21 09:00 12/11/21 08:00 Omeprazole 20 Mg Capsule.Dr PO 12/10/22 08:59 20 mg DAILY PARMJIT Administration Ondansetron HCl 4 mg 12/09/21 11:19 Ondansetron 4 Mg/2 Ml Vial IV-PUSH 12/09/22 11:18 Q8H PRN Nausea And Vomiting Pioglitazone HCl 15 mg 12/10/21 09:00 12/11/21 08:00 Pioglitazone 15 Mg Tablet PO 12/10/22 08:59 15 mg DAILY PARMJIT Administration Potassium Chloride 40 meq 12/09/21 11:19 Potassium Chloride Er 20 Meq Tab.Er.Prt PO 12/09/22 11:18 DAILY PRN Hypokalemia Sodium Chloride 0 ml 12/09/21 07:00 12/10/21 18:24 Sodium Chloride 0.9 % 10 Ml Syringe IV-PUSH 12/09/22 06:59 10 ml PRN PRN Administration Flush Temazepam 30 mg 12/09/21 22:00 12/10/21 21:14 Temazepam 15 Mg Capsule PO 12/09/22 21:59 30 mg QHS PARMJIT Administration Tramadol HCl 50 mg 12/09/21 11:19 12/11/21 08:00 Tramadol 50 Mg Tablet PO 06/07/22 11:18 50 mg Q6H PRN Administration Pain Scale 4 - 7 A&P - Hospitalist Assessment/Plan (1) Pyelonephritis: (2) Emphysematous cystitis: Plan Abdominal pain likely secondary to underlying cystitis/pyelonephritis, d doubt cholecystitis, patient LFTs are normal, , CT abdomen did not show any sign of cholecystitis, ultrasound gallbladder done as well, Patient continues to complain of abdominal pain Will call general surgery Get labs today. Patient on Rocephin, urine culture E. coli sensitive to Rocephin Leukocytosis resolved, will get labs today Will DC fluids since patient has been tolerating p.o. well Polycythemia secondary to history of tobacco abuse/hemoconcentration continue tomonitor CBC daily : Improved History of diabetes, patient on metformin Jardiance insulin and pioglitazone, hold onto metformin and Jardiance for now : Blood sugars been better controlled History of hypertension, patient on lisinopril 10, blood pressure has been stable without lisinopril, continue to hold DVT prophylaxis Documented By: Shira Stephen MD 12/11/21 1326 Signed By: <Electronically signed by Shira Stephen MD> 12/11/21 1333 [facility] Work Phone: Progress note Author [facility] December 12, 2021 8:07am Note Date/Time December 12, 2021 8: 07am [facility] [address] [place] [address] General Surgery Progress Note Signed Patient: Kerry Gay MR#: [id number] : 1955 Acct:[id number] Age/Sex: 66 / F Adm Date: 2 Loc: 3T Room: [address] [place] [address] Type: ADM INOo Attending Dr: Shira Stephen MD Copies to: ~ Date of Service: 12/12/2021 Subjective Subjective HPI: Patient said she is still having this right-sided abdominal pain. She says thatit is a 4 out of 10 but it is still considerably bothersome. She not having nausea or vomiting. She said that if it could possibly be her gallbladder she wants it removed. She not having any urinary difficulty. Allergies & Medications Medications and Allergies Allergies Sulfa (Sulfonamide Antibiotics) Allergy (Verified 12/09/21 07:01) Vomiting Home Medications aspirin 81 mg tablet,delayed release 81 mg PO DAILY 02/09/21 [History Confirmed 12/09/21] cyanocobalamin (vitamin B-12) 1,000 mcg tablet (Vitamin B-12) 1,000 mcg PO DAILY02/09/21 [History Confirmed 12/09/21] docusate sodium 100 mg capsule (Stool Softener) 100 mg PO TID 02/09/21 [History Confirmed 12/09/21] empagliflozin 25 mg tablet (Jardiance) 25 mg PO DAILY 02/09/21 [History Confirmed 12/09/21] folic acid 1 mg tablet 1 mg PO DAILY 02/09/21 [History Confirmed 12/09/21] insulin lispro 100 unit/mL subcutaneous pen (Formerly [facility] [employer] U-100 Insulin lispro) 1 sliding scale dose subcut [id number] 02/09/21 [History Confirmed 12/09/21] lisinopril 10 mg tablet 10 mg PO DAILY 02/09/21 [History Confirmed 12/09/21] loratadine 10 mg tablet 10 mg PO DAILY 02/09/21 [History Confirmed 12/09/21] metformin 500 mg tablet 500 mg PO BID 02/09/21 [History Confirmed 12/09/21] metoclopramide HCl 10 mg tablet 10 mg PO DAILY 02/09/21 [History Confirmed 12/09/21] multivitamin 1 tab PO BID 02/09/21 [History Confirmed 12/09/21] nortriptyline 50 mg capsule 50 mg PO BID 02/09/21 [History Confirmed 12/09/21] omeprazole 20 mg tablet,delayed release 20 mg PO DAILY 02/09/21 [History Confirmed 12/09/21] pioglitazone 15 mg tablet 15 mg PO DAILY 02/09/21 [History Confirmed 12/09/21] semaglutide (Ozempic) 0.5 mg subcut QWEEK 02/09/21 [History Confirmed 12/09/21] simvastatin 20 mg tablet 20 mg PO DAILY 02/09/21 [History Confirmed 12/09/21] temazepam 30 mg capsule 30 mg PO QHS 02/09/21 [History Confirmed 12/09/21] Active Medications Acetaminophen (Acetaminophen 325 Mg Tablet) 650 mg PO Q6HR PRN PRN Reason: Pain Scale 1 - 3 or fever Stop: 12/09/22 11:18 Aspirin (Aspirin 81 Mg Tablet.) 81 mg PO DAILY [facility] Stop: 12/10/22 08:59 Last Admin: 12/11/21 08:00 Dose: 81 mg Atorvastatin Calcium (Atorvastatin 10 Mg Tablet) 10 mg PO DAILY [facility] Stop: 12/10/22 08:59 Last Admin: 12/11/21 08:00 Dose: 10 mg Dextrose (Dextrose 50% In Water 25 Gm/50 Ml Syringe) 0 gm IV-PUSH PRN PRN PRN Reason: Hypoglycemia Stop: 12/09/22 11:18 Enoxaparin Sodium (Enoxaparin 40 Mg/0.4 Ml Syringe) 40 mg SUBCUT DAILY@10 [facility] Stop: 12/10/22 09:59 Last Admin: 12/11/21 09:19 Dose: Not Given Glucose (Dextrose 40% Gel 15 Gm Tube) 0 gm PO PRN PRN PRN Reason: Hypoglycemia Stop: 12/09/22 11:18 Hydralazine HCl (Hydralazine 20 Mg/Ml Vial) 10 mg IV-PUSH Q4H PRN PRN Reason: Hypertension Stop: 12/09/22 11:18 Hydromorphone HCl (Hydromorphone 1 Mg/Ml Syringe) 1 mg IV-PUSH Q6H PRN PRN Reason: Pain Last Admin: 12/11/21 23:10 Dose: 1 mg Ceftriaxone Sodium (Rocephin) 1 gm in 50 mls @ 100 mls/hr IV Q24H [facility] Last Infusion: 12/11/21 10:15 Dose: Infused Sodium Chloride (0.9% Sodium Chloride 1,000 Ml) 1,000 mls @ 100 mls/hr IV .[id number] Stop: 12/12/22 00:00 Last Admin: 12/12/21 00:10 Dose: 100 mls/hr Insulin Aspart (Insulin Aspart 300 Units/3 Ml Insuln.Pen) 0 units SUBCUT TID.WM.HS [facility]; Protocol Stop: 12/09/22 11:59 Last Admin: 12/11/21 21:21 Dose: 3 units Nortriptyline HCl (Nortriptyline 25 Mg Capsule) 50 mg PO BID [facility] Stop: 12/09/22 20:59 Last Admin: 12/11/21 21:20 Dose: 50 mg Omeprazole (Omeprazole 20 Mg Capsule.Dr) 20 mg PO DAILY [facility] Stop: 12/10/22 08:59 Last Admin: 12/11/21 08:00 Dose: 20 mg Ondansetron HCl (Ondansetron 4 Mg/2 Ml Vial) 4 mg IV-PUSH Q8H PRN PRN Reason: Nausea And Vomiting Stop: 12/09/22 11:18 Pioglitazone HCl (Pioglitazone 15 Mg Tablet) 15 mg PO DAILY [facility] Stop: 12/10/22 08:59 Last Admin: 12/11/21 08:00 Dose: 15 mg Potassium Chloride (Potassium Chloride Er 20 Meq Tab.Er.Prt) 40 meq PO DAILY PRN PRN Reason: Hypokalemia Stop: 12/09/22 11:18 Sodium Chloride (Sodium Chloride 0.9 % 10 Ml Syringe) 0 ml IV-PUSH PRN PRN PRN Reason: Flush Stop: 12/09/22 06:59 Last Admin: 12/11/21 23:10 Dose: 10 ml Temazepam (Temazepam 15 Mg Capsule) 30 mg PO QHS [facility] Stop: 12/09/22 21:59 Last Admin: 12/11/21 21:20 Dose: 30 mg Tramadol HCl (Tramadol 50 Mg Tablet) 50 mg PO Q6H PRN PRN Reason: Pain Scale 4 - 7 Stop: 06/07/22 11:18 Last Admin: 12/11/21 21:20 Dose: 50 mg Exam Physical Exam Vital Signs: Temp Pulse Resp BP Pulse Ox O2 Del Method 98 F 81 18 136/73 94 L Room Air 12/12/21 04:00 12/12/21 04:00 12/12/21 04:00 12/12/21 04:00 12/12/21 04:00 12/12/21 04:00 Narrative: Patient is comfortable conversive not in any acute distress. Lungs are clear. Heart is regular rate rhythm. Abdomen and left side is completely soft, patientdoes have mild to moderate tenderness in the right upper quadrant and right lateral abdomen. Less tenderness in the right lower quadrant. Objective Pain Assessment Right Abdomen: Pain Description: Constant Pain Intensity: 7 Right Back: Pain Description: Constant Pain Intensity: 7 Intake & Output 24 hour I&O: Intake & Output 12/11/21 12/12/21 12/12/21 23:59 07:59 15:59 Intake Total 600 / 1700 0 / 0 Output Total 302 / 302 875 / 875 Balance 298 / 1398 -875 / -875 Weight 85 kg Labs CBC & Chem 7: 12/11/21 13:37 12/11/21 13:37 Laboratory Results - Last 48 hrs. 12/12/21 06:47: POC Glucose 151 12/11/21 20:52: POC Glucose 167, POC Glucose Comment Glu2: cleaned meter 12/11/21 16:23: POC Glucose 212 12/11/21 13:37: PHA Creatinine Clear 76.88, Sodium 135 L, Potassium 4.0, Chloride 101, Carbon Dioxide 26.7, BUN 6 L, Creatinine 0.83, Est GFR ( Amer) > 60, Est GFR (Non-Af Amer) > 60, Glucose 204 H, Calcium 9.2, Total Bilirubin 0.3, AST 22, ALT 16, Alkaline Phosphatase 90, Total Protein 5.9 L, Albumin 2.9 L, Globulin 3.0, Albumin/Globulin Ratio 1.0 12/11/21 13:37: Corrected WBC 6.1, Uncorrected WBC Count 6.1, RBC 4.32, Hgb 13.8, Hct 41.4, MCV 95.8, MCH 31.9, MCHC 33.3, RDW 12.9, Plt Count 137 L, MPV 9.0, Neut % (Auto) 66.8, Lymph % (Auto) 21.0, [place] % (Auto) 9.2, Eos % (Auto) 2.6, Baso % (Auto) 0.4, Neut # (Auto) 4.1, Lymph # (Auto) 1.3, [place] # (Auto) 0.6, Eos # (Auto) 0.2, Baso # (Auto) 0.0, Nucleated RBC % (auto) 0.1 12/11/21 11:05: POC Glucose 195 12/11/21 06:58: POC Glucose 172 12/10/21 21:10: POC Glucose 249 12/10/21 16:18: POC Glucose 176 12/10/21 11:20: POC Glucose 268 12/10/21 06:50: PHA Creatinine Clear 75.03, Sodium 139, Potassium 4.0, Chloride 107, Carbon Dioxide 26.2, BUN 8 L, Creatinine 0.86, Est GFR ( Amer) > 60,Est GFR (Non-Af Amer) > 60, Glucose 153 H, Calcium 8.8 Microbiology Microbiology 12/09/21 12:42 Blood - Right Antecubital Blood Culture - Preliminary No Growth 2 Days 12/09/21 12:39 Blood - Left Hand Blood Culture - Preliminary No Growth 2 Days 12/09/21 08:35 Urine - Clean-Voided Midstream Urine Culture - Final Escherichia coli A&P - General Surgery Assessment/Plan (1) Right lateral abdominal pain: Plan: Intractable abdominal pain, cholelithiasis are noted and patient does have pain in right upper quadrant on exam. Not typical gallbladder symptoms however with intractable symptoms patient wants cholecystectomy. I discussed with her laparoscopy, evaluation of appendix, evaluation of gallbladder. Possible appendectomy and I would remove gallbladder unless other obvious and different etiology of symptoms were noted. We discussed risk of bleeding, infection, damage to intra-abdominal structures, possible major bile duct injury that couldrequire complete biliary reconstruction at a tertiary care center, possible bileleak. She would like to proceed with surgery. We will plan on this later today Code(s): R10.9 - Unspecified abdominal pain Status: Acute (2) Cholelithiasis: Code(s): K80.20 - Calculus of gallbladder without cholecystitis without obstruction Status: Acute Documented By: Walter Montgomery DO 12/12/21801 Signed By: <Electronically signed by DO Walter Montgomery> 12/12/21 0807 [facility] Work Phone: Progress note Author Shira Stephen [facility] December 12, 2021 1:20pm Note Date/Time December 12, 2021 1: 20pm [facility] [address] [place] [address] Hospitalist Progress Note Signed Patient: Kerry Gay MR#: [id number] : 1955 Acct:[id number] Age/Sex: 66 / F Adm Date: 2 Loc: 3T Room: [address] [place] [address] Type: ADM INOo Attending Dr: Shira Stephen MD Copies to: ~ Date of Service: 12/12/2021 Subjective Subjective Narrative: Patient is 66-year-old female with past medical history of diabetes, hypertension presented to the ER with abrupt abdominal pain, patient was complaining of pain more in the right lower quadrant, radiating to the back, patient states that is been ongoing for the last couple of days, stated that shecould not tolerate it anymore so her advised her to come to ER. Patientdenies any nausea vomiting any burning urination, denies any fever chills, in the ER labs consistent with hemoglobin of 16.5, WBC 12.9, blood glucose 195, UA consistent with UTI, patient had ultrasoundAbdomen, which showed cholelithiasis and gallbladder sludge, diverticulosis and small amount of air within the urinary bladder, patient denies any history of recent catheterization, In the ER vitals were stable, patient was afebrile Interval history patient seen and examined, continues to complain of pain in the right upper quadrant, seen by general surgery, patient going for possible appendicectomy andcholecystectomy today, seen by urology as well for possible colovesical fistula,recommended continue monitoring, patient might need to follow-up with urology asoutpatient Exam Physical Exam Vital Signs: Temp Pulse Resp BP Pulse Ox O2 Del Method 98.0 F 83 18 133/79 95 Room Air 12/12/21 12:00 12/12/21 12:00 12/12/21 12:00 12/12/21 12:00 12/12/21 12:00 12/12/21 12:00 Narrative: Patient alert oriented, no in acute distress, Clear breath sounds bilaterally, no wheezing or murmur appreciated Abdomen, soft, tenderness in right lower quadrant, costovertebral tenderness also present, Cardiovascular, regular rate and rhythm, no murmur appreciated Extremities no pedal edema appreciated Neurological, alert oriented x3, no focal neurological deficit present Skin, warm and dry. Objective Lab Results CBC & Chem 7: 12/12/21 07:47 12/12/21 07:47 Microbiology Results Microbiology 12/09/21 12:42 Blood - Right Antecubital Blood Culture - Preliminary No Growth 3 Days 12/09/21 12:39 Blood - Left Hand Blood Culture - Preliminary No Growth 3 Days Meds Allergies and Active Meds Allergies Sulfa (Sulfonamide Antibiotics) Allergy (Verified 12/09/21 07:01) Vomiting Active Meds: Active Medications Generic Name Dose Route Start Last Admin Trade Name Sarkis PRN Reason Stop Dose Admin Acetaminophen 650 mg 12/09/21 11:19 Acetaminophen 325 Mg Tablet PO 12/09/22 11:18 Q6HR PRN Pain Scale 1 - 3 or fever Aspirin 81 mg 12/10/21 09:00 12/12/21 10:33 Aspirin 81 Mg Tablet. PO 12/10/22 08:59 Not Given DAILY PARMJIT Atorvastatin Calcium 10 mg 12/10/21 09:00 12/12/21 10:33 Atorvastatin 10 Mg Tablet PO 12/10/22 08:59 Not Given DAILY PARMJIT Dextrose 0 gm 12/09/21 11:19 Dextrose 50% In Water 25 Gm/50 Ml Syringe IV-PUSH 12/09/22 11:18 PRN PRN Hypoglycemia Enoxaparin Sodium 40 mg 12/10/21 10:00 12/12/21 10:33 Enoxaparin 40 Mg/0.4 Ml Syringe SUBCUT 12/10/22 09:59 Not Given DAILY@10 PARMJIT Glucose 0 gm 12/09/21 11:19 Dextrose 40% Gel 15 Gm Tube PO 12/09/22 11:18 PRN PRN Hypoglycemia Hydralazine HCl 10 mg 12/09/21 11:19 Hydralazine 20 Mg/Ml Vial IV-PUSH 12/09/22 11:18 Q4H PRN Hypertension Hydromorphone HCl 1 mg 12/10/21 11:23 12/11/21 23:10 Hydromorphone 1 Mg/Ml Syringe IV-PUSH 1 mg Q6H PRN Administration Pain Ceftriaxone Sodium 1 gm in 50 mls @ 100 mls/hr 12/10/21 10:30 12/12/21 11:57 Rocephin IV 100 mls/hr Q24H PARMJIT Administration Sodium Chloride 1,000 mls @ 100 mls/hr 12/12/21 00:00 12/12/21 10:32 0.9% Sodium Chloride 1,000 Ml IV 12/12/22 00:00 100 mls/hr .Q10H PARMJIT Administration Lactated Ringer's 1,000 mls @ 20 mls/hr 12/12/21 11:14 12/12/21 11:57 Lactated Ringers IV 12/13/21 11:13 20 mls/hr .Q24H ONE Administration Insulin Aspart 0 units 12/09/21 12:00 12/12/21 10:33 Insulin Aspart 300 Units/3 Ml Insuln.Pen SUBCUT 12/09/22 11:59 Not Given TID.WM.HS PARMJIT Protocol Lidocaine HCl 0.1 ml 12/12/21 11:14 Lidocaine 1% 50 Ml Vial INTRADERMA 12/12/21 17:15 PREOP PRN Venipuncture Nortriptyline HCl 50 mg 12/09/21 21:00 12/12/21 10:33 Nortriptyline 25 Mg Capsule PO 12/09/22 20:59 Not Given BID [facility] Omeprazole 20 mg 12/10/21 09:00 12/12/21 10:33 Omeprazole 20 Mg Capsule.Dr PO 12/10/22 08:59 Not Given DAILY [facility] Ondansetron HCl 4 mg 12/09/21 11:19 Ondansetron 4 Mg/2 Ml Vial IV-PUSH 12/09/22 11:18 Q8H PRN Nausea And Vomiting Pioglitazone HCl 15 mg 12/10/21 09:00 12/12/21 10:33 Pioglitazone 15 Mg Tablet PO 12/10/22 08:59 Not Given DAILY [facility] Potassium Chloride 40 meq 12/09/21 11:19 Potassium Chloride Er 20 Meq Tab.Er.Prt PO 12/09/22 11:18 DAILY PRN Hypokalemia Sodium Chloride 0 ml 12/09/21 07:00 12/11/21 23:10 Sodium Chloride 0.9 % 10 Ml Syringe IV-PUSH 12/09/22 06:59 10 ml PRN PRN Administration Flush Sodium Chloride 0 ml 12/12/21 11:14 Sodium Chloride 0.9 % 10 Ml Syringe IV-PUSH 12/12/22 11:13 PRN PRN Flush Temazepam 30 mg 12/09/21 22:00 12/11/21 21:20 Temazepam 15 Mg Capsule PO 12/09/22 21:59 30 mg QHS PARMJIT Administration Tramadol HCl 50 mg 12/09/21 11:19 12/11/21 21:20 Tramadol 50 Mg Tablet PO 06/07/22 11:18 50 mg Q6H PRN Administration Pain Scale 4 - 7 A&P - Hospitalist Assessment/Plan (1) Pyelonephritis: (2) Emphysematous cystitis: Plan Abdominal pain likely secondary to underlying cystitis/pyelonephritis, d doubt cholecystitis, patient LFTs are normal, , CT abdomen did not show any sign of cholecystitis, ultrasound gallbladder done as well, Patient continues to complain of abdominal pain General surgery consulted, patient went for possible appendectomy and cholecystectomy today Patient on Rocephin, urine culture E. 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/hemoconcentration continue tomonitor CBC daily : Improved History of diabetes, patient on metformin Jardiance insulin and pioglitazone, hold onto metformin and Jardiance for now : Blood sugars been better controlled History of hypertension, patient on lisinopril 10, blood pressure has been stable without lisinopril, continue to hold DVT prophylaxis Documented By: Shira Stephen MD 12/12/21 1319 Signed By: <Electronically signed by Shira Stephen MD> 12/12/21 1320 [facility] Work Phone: Progress note Author Teresa Strong [facility] December 12, 2021 8:43pm Note Date/Time December 12, 2021 2: 49pm [facility] [address] [place] [address] Urology Progress Note Signed Patient: Kerry Gay MR#: [id number] : 1955 Acct:[id number] Age/Sex: 66 / F Adm Date: 2 Loc: Room: [address] [place] [address] Type: ADM INOo Attending Dr: Shira Stephen MD Copies to: ~ <Ingrid Sommers DO, RES - Last Filed: 12/12/21 14:51> Date of Service: 12/12/2021 Subjective <Ingrid Sommers DO, RES - Last Filed: 12/12/21 14:51> Subjective HPI: 66-year-old female with a PMH of diabetes, hypertension who presented to the ER on 12/09/21 with abrupt right lower quadrant abdominal pain radiating to back forthe past few days. Workup revealed WBC 12.9, afebrile, renal function, urine culture growing EColi and CT AP wo contrast noting small amount of air in the bladder in absence of hydronephrosis, stones or recent instrumentation. There was no inflammation around the bowels or appendix. Mild diverticulosis noted. Now with RUQ>RLQ pain, abdominal US showed cholelithiasis with gall bladder sludge. General surgery plans to take pt to OR for laparoscopy, cholecystectomy possible appendectomy due to symptoms. Urology was consulted due to findings of air in bladder and concern for colovesical fistula. Currently labs wnl, blood cultures negative. Pt endorses foamy urine but not specific air or feelings of passing gas within urinary stream. No stool, mucus or blood within urine. Does note increased urgency and frequency the past month but otherwise denies fever, chills, dysuria, recurrent UTIs, nausea, emesis, diarrhea or constipation. History of vaginal hysterectomy for heavy bleeding in her 30s. No history of urologic/abdominal procedures or history of diverticulitis or Crohn's. Interval: Patient was seen and examined laying comfortably in bed. Denies any acute events overnight. No passage of stool, mucus, or blood in the catheter. Exam <Ingrid Sommers DO, RES - Last Filed: 12/12/21 14:51> Physical Exam Vital Signs: Temp Pulse Resp BP Pulse Ox O2 Del Method 98.0 F 83 18 133/79 95 Room Air 12/12/21 12:00 12/12/21 12:00 12/12/21 12:00 12/12/21 12:00 12/12/21 12:00 12/12/21 12:00 Narrative: Patient alert oriented, no in acute distress, Clear breath sounds bilaterally, no wheezing or murmur appreciated Abdomen, soft, tenderness in right lower quadrant, costovertebral tenderness also present, Cardiovascular, regular rate and rhythm, no murmur appreciated Extremities no pedal edema appreciated Neurological, alert oriented x3, no focal neurological deficit present Skin, warm and dry. <Teresa Strong MD - Last Filed: 12/12/21 20:43> Physical Exam Narrative: Patient alert oriented, no in acute distress, Clear breath sounds bilaterally, no wheezing or murmur appreciated Abdomen, soft, tenderness in right lower quadrant, costovertebral tenderness also present, Cardiovascular, regular rate and rhythm, no murmur appreciated Extremities no pedal edema appreciated Neurological, alert oriented x3, no focal neurological deficit present Skin, warm and dry. : de la garza to gravity with clear yellow urine Objective <Ingrid Sommers DO, RES - Last Filed: 12/12/21 14:51> Pain Assessment Right Abdomen: Pain Description: Constant Pain Intensity: 7 Right Back: Pain Description: Constant, Aching and Soreness Pain Intensity: 5 Intake & Output 24 hour I&O: Intake & Output 12/11/21 12/12/21 12/12/21 23:59 07:59 15:59 Intake Total 600 / 1700 0 / 1000 1000 / 1000 Output Total 302 / 302 875 / 875 Balance 298 / 1398 -875 / 125 1000 / 125 Weight 85 kg Labs CBC & Chem 7: 12/12/21 07:47 12/12/21 07:47 Laboratory Results - Last 48 hrs. 12/12/21 11:48: POC Glucose 167 12/12/21 07:47: PHA Creatinine Clear 83.77, Sodium 136, Potassium 3.8, Chloride 103, Carbon Dioxide 26.5, BUN 5 L, Creatinine 0.76, Est GFR ( Amer) > 60,Est GFR (Non-Af Amer) > 60, Total Bilirubin 0.7, Direct Bilirubin 0.2, Indirect Bilirubin 0.5, AST 22, Alkaline Phosphatase 92 12/12/21 07:47: PT 14.1 H, INR 1.3, APTT 30.0 12/12/21 07:47: Corrected WBC 7.2, Uncorrected WBC Count 7.2, RBC 4.40, Hgb 14.0, Hct 41.6, MCV 94.6, MCH 31.9, MCHC 33.7, RDW 12.9, Plt Count 160, MPV 9.4,Neut % (Auto) 72.7, Lymph % (Auto) 16.1, [place] % (Auto) 8.8, Eos % (Auto) 2.1, Baso % (Auto) 0.3, Neut # (Auto) 5.3, Lymph # (Auto) 1.2, [place] # (Auto) 0.6, Eos# (Auto) 0.2, Baso # (Auto) 0.0, Nucleated RBC % (auto) 0.1 12/12/21 06:47: POC Glucose 151 12/11/21 20:52: POC Glucose 167, POC Glucose Comment Glu2: cleaned meter 12/11/21 16:23: POC Glucose 212 12/11/21 13:37: PHA Creatinine Clear 76.88, Sodium 135 L, Potassium 4.0, Chloride 101, Carbon Dioxide 26.7, BUN 6 L, Creatinine 0.83, Est GFR ( Amer) > 60, Est GFR (Non-Af Amer) > 60, Glucose 204 H, Calcium 9.2, Total Bilirubin 0.3, AST 22, ALT 16, Alkaline Phosphatase 90, Total Protein 5.9 L, Albumin 2.9 L, Globulin 3.0, Albumin/Globulin Ratio 1.0 12/11/21 13:37: Corrected WBC 6.1, Uncorrected WBC Count 6.1, RBC 4.32, Hgb 13.8, Hct 41.4, MCV 95.8, MCH 31.9, MCHC 33.3, RDW 12.9, Plt Count 137 L, MPV 9.0, Neut % (Auto) 66.8, Lymph % (Auto) 21.0, [place] % (Auto) 9.2, Eos % (Auto) 2.6, Baso % (Auto) 0.4, Neut # (Auto) 4.1, Lymph # (Auto) 1.3, [place] # (Auto) 0.6, Eos # (Auto) 0.2, Baso # (Auto) 0.0, Nucleated RBC % (auto) 0.1 12/11/21 11:05: POC Glucose 195 12/11/21 06:58: POC Glucose 172 12/10/21 21:10: POC Glucose 249 12/10/21 16:18: POC Glucose 176 Microbiology Microbiology 12/09/21 12:42 Blood - Right Antecubital Blood Culture - Preliminary No Growth 3 Days 12/09/21 12:39 Blood - Left Hand Blood Culture - Preliminary No Growth 3 Days Assessment/Plan <Ingrid Sommers, DO, RES - Last Filed: 12/12/21 14:51> Assessment/Plan (1) Pyelonephritis: Code(s): N12 - Tubulo-interstitial nephritis, not specified as acute or chronic (2) Emphysematous cystitis: Code(s): 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 Cont to monitor output and appearance. If there is concern for stool in urine or she does not improve while inpt, will obtain CT AP with PO or rectal contrast (no IV) to evaluate for fistula. Otherwise, will follow up outpatient given low riskfactors for fistula. -Cont abx treatment based on sensitivities at least 7-10 days for UTI <Teresa Strong MD - Last Filed: 12/12/21 20:43> Assessment/Plan (1) Pyelonephritis: (2) Emphysematous cystitis: Plan -Recommend de la garza placement for maximal decompression of UTI x 1 week. Cont to monitor output and appearance, low suspicion for fistula based on urine output. If there is concern for stool in urine or she does not improve while inpt, will obtain CT AP with PO or rectal contrast (no IV) to evaluate for fistula. Otherwise, will follow up outpatient given low risk factors for fistula. -Cont abx treatment based on sensitivities at least 7-10 days for UTI Documented By: Ingrid Sommers DO, RES 12/12/21 1446 Signed By: <Electronically signed by DO GAGE Sommers> 12/12/21 1451 <Electronically signed by Teresa Strong MD> 12/12/212042 [facility] Work Phone: Progress note Author Walter Montgomery [facility] December 13, 2021 8:52am Note Date/Time December 13, 2021 8: 52am [facility] [address] [place] [address] General Surgery Progress Note Signed Patient: Kerry Gay MR#: [id number] : 1955 Acct:[id number] Age/Sex: 66 / F Adm Date: 2 Loc: Room: [address] [place] [address] Type: ADM INOo Attending Dr: Wilmer Vance MD Copies to: ~ Date of Service: 12/13/2021 Subjective Subjective HPI: Patient feels good this morning. She sitting up in her hospital bed eating an omelette. The pain that she had before surgery is gone. She feels much better about that. She not having any fevers chills or sweats. She not having any shortness of breath. Allergies & Medications Medications and Allergies Allergies Sulfa (Sulfonamide Antibiotics) Allergy (Verified 12/09/21 07:01) Vomiting Home Medications aspirin 81 mg tablet,delayed release 81 mg PO DAILY 02/09/21 [History Confirmed 12/09/21] cyanocobalamin (vitamin B-12) 1,000 mcg tablet (Vitamin B-12) 1,000 mcg PO DAILY02/09/21 [History Confirmed 12/09/21] docusate sodium 100 mg capsule (Stool Softener) 100 mg PO TID 02/09/21 [History Confirmed 12/09/21] empagliflozin 25 mg tablet (Jardiance) 25 mg PO DAILY 02/09/21 [History Confirmed 12/09/21] folic acid 1 mg tablet 1 mg PO DAILY 02/09/21 [History Confirmed 12/09/21] insulin lispro 100 unit/mL [facility] Insulin lispro) 1 sliding scale dose subcut USEASDIRECTD 02/09/21 [History Confirmed 12/09/21] lisinopril 10 mg tablet 10 mg PO DAILY 02/09/21 [History Confirmed 12/09/21] loratadine 10 mg tablet 10 mg PO DAILY 02/09/21 [History Confirmed 12/09/21] metformin 500 mg tablet 500 mg PO BID 02/09/21 [History Confirmed 12/09/21] metoclopramide HCl 10 mg tablet 10 mg PO DAILY 02/09/21 [History Confirmed 12/09/21] multivitamin 1 tab PO BID 02/09/21 [History Confirmed 12/09/21] nortriptyline 50 mg capsule 50 mg PO BID 02/09/21 [History Confirmed 12/09/21] omeprazole 20 mg tablet,delayed release 20 mg PO DAILY 02/09/21 [History Confirmed 12/09/21] pioglitazone 15 mg tablet 15 mg PO DAILY 02/09/21 [History Confirmed 12/09/21] semaglutide (Ozempic) 0.5 mg subcut QWEEK 02/09/21 [History Confirmed 12/09/21] simvastatin 20 mg tablet 20 mg PO DAILY 02/09/21 [History Confirmed 12/09/21] temazepam 30 mg capsule 30 mg PO QHS 02/09/21 [History Confirmed 12/09/21] Active Medications Acetaminophen (Acetaminophen 325 Mg Tablet) 650 mg PO Q6HR PRN PRN Reason: Pain Scale 1 - 3 or fever Stop: 12/09/22 11:18 Aspirin (Aspirin 81 Mg Tablet.) 81 mg PO DAILY [facility] Stop: 12/10/22 08:59 Last Admin: 12/12/21 10:33 Dose: Not Given Atorvastatin Calcium (Atorvastatin 10 Mg Tablet) 10 mg PO DAILY [facility] Stop: 12/10/22 08:59 Last Admin: 12/12/21 10:33 Dose: Not Given Cyanocobalamin (Cyanocobalamin 1,000 Mcg Tablet) 1,000 mcg PO DAILY [facility] Stop: 12/13/22 08:59 Dextrose (Dextrose 50% In Water 25 Gm/50 Ml Syringe) 0 gm IV-PUSH PRN PRN PRN Reason: Hypoglycemia Stop: 12/09/22 11:18 Docusate Sodium (Docusate 100 Mg Capsule) 100 mg PO TID [facility] Stop: 12/12/22 21:59 Last Admin: 12/12/21 22:26 Dose: 100 mg Enoxaparin Sodium (Enoxaparin 40 Mg/0.4 Ml Syringe) 40 mg SUBCUT DAILY@10 [facility] Stop: 12/10/22 09:59 Last Admin: 12/12/21 10:33 Dose: Not Given Glucose (Dextrose 40% Gel 15 Gm Tube) 0 gm PO PRN PRN PRN Reason: Hypoglycemia Stop: 12/09/22 11:18 Hydralazine HCl (Hydralazine 20 Mg/Ml Vial) 10 mg IV-PUSH Q4H PRN PRN Reason: Hypertension Stop: 12/09/22 11:18 Hydromorphone HCl (Hydromorphone 0.5 Mg/0.5 Ml Syringe) 1 mg IV-PUSH Q3H PRN PRN Reason: Pain Ceftriaxone Sodium (Rocephin) 1 gm in 50 mls @ 100 mls/hr IV Q24H [facility] Last Admin: 12/12/21 11:57 Dose: 100 mls/hr Sodium Chloride (0.9% Sodium Chloride 1,000 Ml) 1,000 mls @ 100 mls/hr IV .[id number] Stop: 12/12/22 00:00 Last Infusion: 12/13/21 03:35 Dose: Infused Lactated Ringer's (Lactated Ringers) 1,000 mls @ 20 mls/hr IV .Q24H ONE Stop: 12/13/21 11:13 Last Infusion: 12/13/21 03:31 Dose: Infused Insulin Aspart (Insulin Aspart 300 Units/3 Ml Insuln.Pen) 0 units SUBCUT TID.WM.HS [facility]; Protocol Stop: 12/09/22 11:59 Last Admin: 12/13/21 08:07 Dose: 4 units Nortriptyline HCl (Nortriptyline 25 Mg Capsule) 50 mg PO BID [facility] Stop: 12/09/22 20:59 Last Admin: 12/12/21 22:27 Dose: 50 mg Omeprazole (Omeprazole 20 Mg Capsule.Dr) 20 mg PO DAILY [facility] Stop: 12/10/22 08:59 Last Admin: 12/12/21 10:33 Dose: Not Given Ondansetron HCl (Ondansetron 4 Mg/2 Ml Vial) 4 mg IV-PUSH Q6H PRN PRN Reason: Nausea And Vomiting Stop: 12/12/22 18:19 Pioglitazone HCl (Pioglitazone 15 Mg Tablet) 15 mg PO DAILY [facility] Stop: 12/10/22 08:59 Last Admin: 12/12/21 10:33 Dose: Not Given Potassium Chloride (Potassium Chloride Er 20 Meq Tab.Er.Prt) 40 meq PO DAILY PRN PRN Reason: Hypokalemia Stop: 12/09/22 11:18 Sodium Chloride (Sodium Chloride 0.9 % 10 Ml Syringe) 0 ml IV-PUSH PRN PRN PRN Reason: Flush Stop: 12/09/22 06:59 Last Admin: 12/11/21 23:10 Dose: 10 ml Sodium Chloride (Sodium Chloride 0.9 % 10 Ml Syringe) 0 ml IV-PUSH PRN PRN PRN Reason: Flush Stop: 12/12/22 11:13 Temazepam (Temazepam 15 Mg Capsule) 30 mg PO QHS [facility] Stop: 12/09/22 21:59 Last Admin: 12/12/21 22:27 Dose: 30 mg Tramadol HCl (Tramadol 50 Mg Tablet) 50 mg PO Q6H PRN PRN Reason: Pain Scale 4 - 7 Stop: 06/07/22 11:18 Last Admin: 12/12/21 22:26 Dose: 50 mg Exam Physical Exam Vital Signs: Temp Pulse Resp BP Pulse Ox O2 Del Method O2 Flow Rate 98.3 F 85 18 101/67 95 Nasal Cannula 3 12/13/21 00:25 12/13/21 08:00 12/13/21 08:00 12/13/21 08:00 12/13/21 08:00 12/13/21 08:00 12/13/21 08:00 Narrative: Patient is comfortable conversive not in any acute distress. Lungs are clear. Heart is regular rate rhythm. Abdomen is soft nontender nondistended. Incisions are clean dry and intact. Objective Pain Assessment Right Abdomen: Pain Description: Constant Pain Intensity: 7 Right Back: Pain Description: Constant, Aching and Soreness Pain Intensity: 5 Intake & Output 24 hour I&O: Intake & Output 12/12/21 12/13/21 12/13/21 23:59 07:59 15:59 Intake Total 1200 / 2200 2250 / 2250 Output Total 250 / 1375 550 / 550 Balance 950 / 825 1700 / 1700 Weight 84.8 kg Labs CBC & Chem 7: 12/13/21 05:58 12/13/21 05:58 Laboratory Results - Last 48 hrs. 12/13/21 06:50: POC Glucose 205 12/13/21 05:58: PHA Creatinine Clear 84.79, Sodium 137, Potassium 4.4, Chloride 105, Carbon Dioxide 24.6, BUN 12, Creatinine 0.75, Est GFR ( Amer) > 60, Est GFR (Non-Af Amer) > 60, Total Bilirubin 0.7, Direct Bilirubin 0.2, Indirect Bilirubin 0.5 12/13/21 05:58: Corrected WBC 9.4, Uncorrected WBC Count 9.4, RBC 4.41, Hgb 14.2, Hct 41.9, MCV 95.1, MCH 32.2, MCHC 33.9, RDW 12.9, Plt Count 178, MPV 9.3,Neut % (Auto) 90.4, Lymph % (Auto) 7.7, [place] % (Auto) 1.8, Eos % (Auto) 0.0, Baso % (Auto) 0.1, Neut # (Auto) 8.5 H, Lymph # (Auto) 0.7 L, [place] # (Auto) 0.2, Eos # (Auto) 0.0, Baso # (Auto) 0.0, Nucleated RBC % (auto) 0.0 12/12/21 20:42: POC Glucose 214 12/12/21 18:25: POC Glucose 178 12/12/21 15:26: POC Glucose 133 12/12/21 11:48: POC Glucose 167 12/12/21 07:47: PHA Creatinine Clear 83.77, Sodium 136, Potassium 3.8, Chloride 103, Carbon Dioxide 26.5, BUN 5 L, Creatinine 0.76, Est GFR ( Amer) > 60,Est GFR (Non-Af Amer) > 60, Total Bilirubin 0.7, Direct Bilirubin 0.2, Indirect Bilirubin 0.5, AST 22, Alkaline Phosphatase 92 12/12/21 07:47: PT 14.1 H, INR 1.3, APTT 30.0 12/12/21 07:47: Corrected WBC 7.2, Uncorrected WBC Count 7.2, RBC 4.40, Hgb 14.0, Hct 41.6, MCV 94.6, MCH 31.9, MCHC 33.7, RDW 12.9, Plt Count 160, MPV 9.4,Neut % (Auto) 72.7, Lymph % (Auto) 16.1, [place] % (Auto) 8.8, Eos % (Auto) 2.1, Baso % (Auto) 0.3, Neut # (Auto) 5.3, Lymph # (Auto) 1.2, [place] # (Auto) 0.6, Eos# (Auto) 0.2, Baso # (Auto) 0.0, Nucleated RBC % (auto) 0.1 12/12/21 06:47: POC Glucose 151 12/11/21 20:52: POC Glucose 167, POC Glucose Comment Glu2: cleaned meter 12/11/21 16:23: POC Glucose 212 12/11/21 13:37: PHA Creatinine Clear 76.88, Sodium 135 L, Potassium 4.0, Chloride 101, Carbon Dioxide 26.7, BUN 6 L, Creatinine 0.83, Est GFR ( Amer) > 60, Est GFR (Non-Af Amer) > 60, Glucose 204 H, Calcium 9.2, Total Bilirubin 0.3, AST 22, ALT 16, Alkaline Phosphatase 90, Total Protein 5.9 L, Albumin2.9 L, Globulin 3.0, Albumin/Globulin Ratio 1.0 12/11/21 13:37: Corrected WBC 6.1, Uncorrected WBC Count 6.1, RBC 4.32, Hgb 13.8, Hct 41.4, MCV 95.8, MCH 31.9, MCHC 33.3, RDW 12.9, Plt Count 137 L, MPV 9.0, Neut % (Auto) 66.8, Lymph % (Auto) 21.0, [place] % (Auto) 9.2, Eos % (Auto) 2.6, Baso % (Auto) 0.4, Neut # (Auto) 4.1, Lymph # (Auto) 1.3, [place] # (Auto) 0.6, Eos # (Auto) 0.2, Baso # (Auto) 0.0, Nucleated RBC % (auto) 0.1 12/11/21 11:05: POC Glucose 195 Microbiology Microbiology 12/09/21 12:42 Blood - Right Antecubital Blood Culture - Preliminary No Growth 3 Days 12/09/21 12:39 Blood - Left Hand Blood Culture - Preliminary No Growth 3 Days A&P - General Surgery Assessment/Plan (1) Right lateral abdominal pain: Plan: Status post laparoscopic cholecystectomy, calculus cholecystitis noted with a edematous gallbladder. Patient's preoperative symptoms are resolved. Appendix was normal I discussed with her events of surgery. I discussed with her postoperative careinstructions including activity restriction, incision care, dietary modificationfollow-up in my office. I will see her in the office in 1 week. Code(s): R10.9 - Unspecified abdominal pain Status: Acute (2) Cholelithiasis: Code(s): K80.20 - Calculus of gallbladder without cholecystitis without obstruction Status: Acute Documented By: Walter Montgomery DO 12/13/21 0849 Signed By: <Electronically signed by DO Walter Montgomery> 12/13/21 0852 [facility] Work Phone: Summary Purpose Family History Relationship Condition Age at Onset Recorded Date/T cinthya Not Specified Heart disease Unknown father Malignant neoplasm of throat Unknown Relationship Condition Age at Onset Recorded Date/T cinthya Not Specified Heart disease Unknown father Malignant neoplasm of throat Unknown father Heart disease Unknown History of stroke Unknown Malignant neoplasm Unknown Unknown family member Unknown Not Specified Unknown Heart disease Unknown Hypertension Unknown natural son Diabetes mellitus Unknown sister Family history of mental disorder Unknown Relationship Condition Age at Onset Recorded Date/T cinthya father Heart disease Unknown History of stroke Unknown Malignant neoplasm Unknown Unknown Not Specified Unknown Heart disease Unknown Hypertension Unknown natural son Diabetes mellitus Unknown sister Unknown brother Unknown Relationship Condition Age at Onset Recorded Date/T cinthya father Heart disease Unknown History of stroke Unknown Malignant neoplasm Unknown Unknown mother Unknown Heart disease Unknown Hypertension Unknown son Diabetes mellitus Unknown sister Unknown brother Unknown Advance Directives Advance Directive Response Recorded Date/ Time Advance Directives No December 5:05pm Advance Directive Response Recorded Date/ Time Advance Directives No December 4:05pm Procedure Findings Note HNO ID: [id number] Author: Phi Joaquin Service: Gynecology Oncology Author Type: Physician Type: Brief Op Note Filed: 01/17/2019 7:15 PM Note Text: BRIEF OPERATIVE / PROCEDURE NOTE LOG ID: [id number] SURGERY/PROCEDURE DATE: 01/01/2019 INCISION/PROCEDURE START TIME: 8:11 AM INCISION CLOSE/PROCEDURE END TIME: 8:34 AM SURGEON(S)/PROCEDURALIST(S) AND REGISTERED NURSE BONE MARROW TRANSPLANT(S): Surgeon(s) and Role: * Theo Joaquin - Primary * Petty Shahid (Fel) - Fellow No Additional Staff SURGERY/PROCEDURE(S): wide local excision ANESTHESIA: General FINDINGS: white lesion to midline perineal area about 4 x 3 cm that was excised. 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] SIGNATURE: Petty Shahid MD PATIENT NAME: Kerry Gay DATE: January 01, 2019 TIME: 8:39 AM PAGER/CONTACT #: [id number] Chief Complaint and Reason for Visit Chief Complaint right side pain Low R abd pain Reason for Visit Cholelithiasis Emphysematous cystitis Pyelonephritis Right lateral abdominal pain Chief Complaint g02.97 f17.210 Chief Complaint g02.97 f17.210 Z12.39 Chief Complaint E11.4 Z78.0 Chief Complaint 3 month follow up Reason for Visit BMI 28.0-28.9,adult [id number] Dietary counseling and surveillance Hyperlipidemia Hypertension Insulin long-term use Peripheral neuropathy Type 2 diabetes mellitus Vitamin B 12 deficiency Chief Complaint 3 month follow up PVD FOLLOW UP Reason for Visit BMI 28.0-28.9,adult [id number] Dietary counseling and surveillance Hyperlipidemia Hypertension Insulin long-term use Peripheral neuropathy Type 2 diabetes mellitus Vitamin B 12 deficiency Dizziness Hypertension Primary insomnia Type 2 diabetes mellitus Chief Complaint 3 month follow up PVD FOLLOW UP g02.97 f17.210 Reason for Visit BMI 28.0-28.9,adult [id number] Dietary counseling and surveillance Hyperlipidemia Hypertension Insulin long-term use Peripheral neuropathy Type 2 diabetes mellitus Vitamin B 12 deficiency Dizziness Hypertension Primary insomnia Type 2 diabetes mellitus PAD (peripheral artery disease) Chief Complaint 3 month follow up PVD FOLLOW UP g02.97 f17.210 E11.9 E78.5 E53.8 Reason for Visit BMI 28.0-28.9,adult [id number] Dietary counseling and surveillance Hyperlipidemia Hypertension Insulin long-term use Peripheral neuropathy Type 2 diabetes mellitus Vitamin B 12 deficiency Dizziness Hypertension Primary insomnia Type 2 diabetes mellitus PAD (peripheral artery disease) Chief Complaint PVD FOLLOW UP g02.97 f17.210 E11.9 E78.5 E53.8 Amb Documentation lida on phone chest pains chest pains Reason for Visit PAD (peripheral evert ry disease) BMI 28.0-28.9,adult [id number] Dietary counseling and surveillance Hyperlipidemia Hypertension Peripheral neuropathy Tachycardia Type 2 diabetes mellitus Vitamin B 12 deficiency Atrial flutter with rapid ventricular response Chest pain Hyperlipidemia Hypertension New onset atrial flutter Type 2 diabetes mellitus Chief Complaint PVD FOLLOW UP g02.97 f17.210 E11.9 E78.5 E53.8 Amb Documentation lida on phone chest pains chest pains Amb Documentation Hospital follow up Reason for Visit PAD (peripheral evert ry disease) BMI 28.0-28.9,adult [id number] Dietary counseling and surveillance Hyperlipidemia Hypertension Peripheral neuropathy Tachycardia Type 2 diabetes mellitus Vitamin B 12 deficiency Atrial flutter with rapid ventricular response Chest pain Hyperlipidemia Hypertension New onset atrial flutter Type 2 diabetes mellitus New onset atrial flutter Mobility impaired Chief Complaint E11.9 E78.5 E53.8 Amb Documentation lida on phone chest pains chest pains Amb Documentation Hospital follow up g72.9 g62.9 r79.89 g60.9 z11.3 e53.1 i70.91 d51.3 Reason for Visit BMI 28.0-28.9,adult [id number] Dietary counseling and surveillance Hyperlipidemia Hypertension Peripheral neuropathy Tachycardia Type 2 diabetes mellitus Vitamin B 12 deficiency Hyperlipidemia Hypertension New onset atrial flutter Type 2 diabetes mellitus Atrial flutter with rapid ventricular response Chest pain Hospital discharge follow-up New onset atrial flutter Primary insomnia Type 2 diabetes mellitus Mobility impaired Chief Complaint E11.9 E78.5 E53.8 Amb Documentation lida on phone chest pains chest pains Amb Documentation Hospital follow up g72.9 g62.9 r79.89 g60.9 z11.3 e53.1 i70.91 d51.3 aflutter Reason for Visit BMI 28.0-28.9,adult [id number] Dietary counseling and surveillance Hyperlipidemia Hypertension Peripheral neuropathy Tachycardia Type 2 diabetes mellitus Vitamin B 12 deficiency Hyperlipidemia Hypertension New onset atrial flutter Type 2 diabetes mellitus Atrial flutter with rapid ventricular response Chest pain Hospital discharge follow-up New onset atrial flutter Primary insomnia Type 2 diabetes mellitus Mobility impaired Chief Complaint E11.9 E78.5 E53.8 Amb Documentation lida on phone chest pains chest pains Amb Documentation Hospital follow up g72.9 g62.9 r79.89 g60.9 z11.3 e53.1 i70.91 d51.3 aflutter [place], [place] Reason for Visit BMI 28.0-28.9,adult [id number] Dietary counseling and surveillance Hyperlipidemia Hypertension Peripheral neuropathy Tachycardia Type 2 diabetes mellitus Vitamin B 12 deficiency Hyperlipidemia Hypertension New onset atrial flutter Type 2 diabetes mellitus Atrial flutter with rapid ventricular response Chest pain Hospital discharge follow-up New onset atrial flutter Primary insomnia Type 2 diabetes mellitus Mobility impaired Ambulatory dysfunction Hypomagnesemia Hypothyroid Type 2 diabetes mellitus with hyperglycemia Weakness Chief Complaint E11.9 E78.5 E53.8 Amb Documentation lida on phone chest pains chest pains Amb Documentation Hospital follow up g72.9 g62.9 r79.89 g60.9 z11.3 e53.1 i70.91 d51.3 aflutter [place], [place] Reason for Visit BMI 28.0-28.9,adult [id number] Dietary counseling and surveillance Hyperlipidemia Hypertension Peripheral neuropathy Tachycardia Type 2 diabetes mellitus Vitamin B 12 deficiency Hyperlipidemia Hypertension New onset atrial flutter Type 2 diabetes mellitus Atrial flutter with rapid ventricular response Chest pain Hospital discharge follow-up New onset atrial flutter Primary insomnia Type 2 diabetes mellitus Mobility impaired Ambulatory dysfunction Hypomagnesemia Hypothyroid Type 2 diabetes mellitus with hyperglycemia Vitamin B 12 deficiency Weakness Chief Complaint E11.9 E78.5 E53.8 Amb Documentation lida on phone chest pains chest pains Amb Documentation Hospital follow up g72.9 g62.9 r79.89 g60.9 z11.3 e53.1 i70.91 d51.3 aflutter [place], [place] Amb Documentation lida on phone Reason for Visit BMI 28.0-28.9,adult [id number] Dietary counseling and surveillance Hyperlipidemia Hypertension Peripheral neuropathy Tachycardia Type 2 diabetes mellitus Vitamin B 12 deficiency Hyperlipidemia Hypertension New onset atrial flutter Type 2 diabetes mellitus Atrial flutter with rapid ventricular response Chest pain Hospital discharge follow-up New onset atrial flutter Primary insomnia Type 2 diabetes mellitus Mobility impaired Ambulatory dysfunction Hypomagnesemia Hypothyroid Type 2 diabetes mellitus with hyperglycemia Vitamin B 12 deficiency Weakness BMI 28.0-28.9,adult [id number] Dietary counseling and surveillance Hyperlipidemia Hypertension Peripheral neuropathy Type 2 diabetes mellitus Vitamin B 12 deficiency Chief Complaint E11.9 E78.5 E53.8 Amb Documentation lida on phone chest pains chest pains Amb Documentation Hospital follow up g72.9 g62.9 r79.89 g60.9 z11.3 e53.1 i70.91 d51.3 aflutter [place], [place] Amb Documentation lida on phone typical a flutter Reason for Visit BMI 28.0-28.9,adult [id number] Dietary counseling and surveillance Hyperlipidemia Hypertension Peripheral neuropathy Tachycardia Type 2 diabetes mellitus Vitamin B 12 deficiency Hyperlipidemia Hypertension New onset atrial flutter Type 2 diabetes mellitus Atrial flutter with rapid ventricular response Chest pain Hospital discharge follow-up New onset atrial flutter Primary insomnia Type 2 diabetes mellitus Mobility impaired Ambulatory dysfunction Hypomagnesemia Hypothyroid Type 2 diabetes mellitus with hyperglycemia Vitamin B 12 deficiency Weakness Abnormal thyroid blood test BMI 28.0-28.9,adult [id number] Dietary counseling and surveillance Hyperlipidemia Hypertension Peripheral neuropathy Type 2 diabetes mellitus Vitamin B 12 deficiency Chief Complaint E11.9 E78.5 E53.8 Amb Documentation lida on phone chest pains chest pains Amb Documentation Hospital follow up g72.9 g62.9 r79.89 g60.9 z11.3 e53.1 i70.91 d51.3 aflutter [place], [place] Amb Documentation lida on phone typical a flutter typical a flutter [facility] follow up Reason for Visit BMI 28.0-28.9,adult [id number] Dietary counseling and surveillance Hyperlipidemia Hypertension Peripheral neuropathy Tachycardia Type 2 diabetes mellitus Vitamin B 12 deficiency Hyperlipidemia Hypertension New onset atrial flutter Type 2 diabetes mellitus Atrial flutter with rapid ventricular response Chest pain Hospital discharge follow-up New onset atrial flutter Primary insomnia Type 2 diabetes mellitus Mobility impaired Ambulatory dysfunction Hypomagnesemia Hypothyroid Type 2 diabetes mellitus with hyperglycemia Vitamin B 12 deficiency Weakness Abnormal thyroid blood test BMI 28.0-28.9,adult [id number] Dietary counseling and surveillance Hyperlipidemia Hypertension Peripheral neuropathy Type 2 diabetes mellitus Vitamin B 12 deficiency Hospital discharge follow-up Hypomagnesemia Chief Complaint E11.9 E78.5 E53.8 Amb Documentation lida on phone chest pains chest pains Amb Documentation Hospital follow up g72.9 g62.9 r79.89 g60.9 z11.3 e53.1 i70.91 d51.3 aflutter [place], [place] Amb Documentation lida on phone typical a flutter typical a flutter [facility] follow up G62.9 G60.9 R79.89 Z11.3 E53.1 I70.31 D51.3 Reason for Visit BMI 28.0-28.9,adult [id number] Dietary counseling and surveillance Hyperlipidemia Hypertension Peripheral neuropathy Tachycardia Type 2 diabetes mellitus Vitamin B 12 deficiency Hyperlipidemia Hypertension New onset atrial flutter Type 2 diabetes mellitus Atrial flutter with rapid ventricular response Chest pain Hospital discharge follow-up New onset atrial flutter Primary insomnia Type 2 diabetes mellitus Mobility impaired Ambulatory dysfunction Hypomagnesemia Hypothyroid Type 2 diabetes mellitus with hyperglycemia Vitamin B 12 deficiency Weakness Abnormal thyroid blood test BMI 28.0-28.9,adult [id number] Dietary counseling and surveillance Hyperlipidemia Hypertension Peripheral neuropathy Type 2 diabetes mellitus Vitamin B 12 deficiency Hospital discharge follow-up Hypomagnesemia Chief Complaint E11.9 E78.5 E53.8 Amb Documentation lida on phone chest pains chest pains Amb Documentation Hospital follow up g72.9 g62.9 r79.89 g60.9 z11.3 e53.1 i70.91 d51.3 aflutter [place], [place] Amb Documentation lida on phone typical a flutter typical a flutter [facility] follow up G62.9 G60.9 R79.89 Z11.3 E53.1 I70.31 D51.3 g62.9 r79.89 g60.9 z11.3 e53.1 d51.3 Reason for Visit BMI 28.0-28.9,adult [id number] Dietary counseling and surveillance Hyperlipidemia Hypertension Peripheral neuropathy Tachycardia Type 2 diabetes mellitus Vitamin B 12 deficiency Hyperlipidemia Hypertension New onset atrial flutter Type 2 diabetes mellitus Atrial flutter with rapid ventricular response Chest pain Hospital discharge follow-up New onset atrial flutter Primary insomnia Type 2 diabetes mellitus Mobility impaired Ambulatory dysfunction Hypomagnesemia Hypothyroid Type 2 diabetes mellitus with hyperglycemia Vitamin B 12 deficiency Weakness Abnormal thyroid blood test BMI 28.0-28.9,adult [id number] Dietary counseling and surveillance Hyperlipidemia Hypertension Peripheral neuropathy Type 2 diabetes mellitus Vitamin B 12 deficiency Hospital discharge follow-up Hypomagnesemia Chief Complaint g72.9 g62.9 r79.89 g 60.9 z11.3 e53.1 i70.91 d51.3 aflutter [place], [place] Amb Documentation lida on phone typical a flutter typical a flutter [facility] follow up G62.9 G60.9 R79.89 Z11.3 E53.1 I70.31 D51.3 g62.9 r79.89 g60.9 z11.3 e53.1 d51.3 M54.17 Reason for Visit Ambulatory dysfuncti on Hypomagnesemia Hypothyroid Type 2 diabetes mellitus with hyperglycemia Vitamin B 12 deficiency Weakness Abnormal thyroid blood test BMI 28.0-28.9,adult [id number] Dietary counseling and surveillance Hyperlipidemia Hypertension Peripheral neuropathy Type 2 diabetes mellitus Vitamin B 12 deficiency Hospital discharge follow-up Hypomagnesemia Chief Complaint g72.9 g62.9 r79.89 g 60.9 z11.3 e53.1 i70.91 d51.3 aflutter [place], [place] Amb Documentation lida on phone typical a flutter typical a flutter [facility] follow up G62.9 G60.9 R79.89 Z11.3 E53.1 I70.31 D51.3 g62.9 r79.89 g60.9 z11.3 e53.1 d51.3 M54.17 R60.0 M79.671 r/o dvt Reason for Visit Ambulatory dysfuncti on Hypomagnesemia Hypothyroid Type 2 diabetes mellitus with hyperglycemia Vitamin B 12 deficiency Weakness Abnormal thyroid blood test BMI 28.0-28.9,adult [id number] Dietary counseling and surveillance Hyperlipidemia Hypertension Peripheral neuropathy Type 2 diabetes mellitus Vitamin B 12 deficiency Hospital discharge follow-up Hypomagnesemia Chief Complaint g72.9 g62.9 r79.89 g 60.9 z11.3 e53.1 i70.91 d51.3 aflutter [place], [place] Amb Documentation lida on phone typical a flutter typical a flutter [facility] follow up G62.9 G60.9 R79.89 Z11.3 E53.1 I70.31 D51.3 g62.9 r79.89 g60.9 z11.3 e53.1 d51.3 M54.17 R60.0 M79.671 r/o dvt L97.511 L03.115 lumbosacral radiculopathy at s1 Reason for Visit Ambulatory dysfuncti on Hypomagnesemia Hypothyroid Type 2 diabetes mellitus with hyperglycemia Vitamin B 12 deficiency Weakness Abnormal thyroid blood test BMI 28.0-28.9,adult [id number] Dietary counseling and surveillance Hyperlipidemia Hypertension Peripheral neuropathy Type 2 diabetes mellitus Vitamin B 12 deficiency Hospital discharge follow-up Hypomagnesemia Reason for Referral Specialty Diagnoses / Procedures Referred By Tahmina thurston Referred To Contact Cardiology Diagnoses Typical atrial flutter (Multi) Procedures Cardioversion External Darrell Ch MD [address] [facility] [address] [place] [address] Referral ID Status Reason Start Date Expiration Date V isits Requested Visits Authorized [id number] Pending Review 10/07/2023 10/06/2024 1 1 Specialty Diagnoses / Procedures Referred By Contac t Referred To Contact Cardiology Diagnoses Typical atrial flutter (Multi) Procedures Follow Up In Cardiology Darrell Ch MD [address] [facility] [address] [place] [address] Darrell Ch MD [address] [facility] [address] [place] [address] Referral ID Status Reason Start Date Expiration Date V isits Requested Visits Authorized [id number] Authorized 10/07/2023 10/06/2024 1 1 Reason LEFT FOOT INJURY Diagnosis 1 Type 2 diabetes ye itus with hyperglycemia (E11.65) Diagnosis 2 Injury of foot, left (S99.922A) Referral Organization [facility] Referring Provider First Name Angelique Referring Provider Last Name Yvonne Referring Provider Specialty Nurse Pract itioner Referred Organization [facility] Referred Provider Karl Fritz Referred Address ,[place], [place],[address] Referred Provider Specialty Podiatry - S urgical Chiropody Referral Priority Routine Referral Appointment Date 2023-01-09 General Notes Emerald Doshi 12/28 03:26:20 PM >SCHEDULED FOR 01/09/23 AT 10:15AM. PATIENT INFORMED. Additional Source Comments INFORMATION SOURCE (unrecogn ized section and content) DATE CREATED AUTHOR 10/21/2017 [facility] DATE CREATED AUTHOR AUTHOR'S ORGANIZ ATION 10/22/2017 [facility] pital DATE CREATED AUTHOR AUTHOR'S ORGANIZ ATION 02/16/2019 [facility] DATE CREATED AUTHOR AUTHOR'S ORGANIZ ATION 02/02/2022 [facility] DATE CREATED AUTHOR AUTHOR'S ORGANIZ ATION 01/09/2024 [facility]ulatory DATE CREATED AUTHOR AUTHOR'S ORGANIZ ATION 01/13/2024 [facility] DATE CREATED AUTHOR AUTHOR'S ORGANIZ ATION 01/27/2024 [facility] EPIC REASON FOR VISIT (unrecogniz ed section and content) Reason Comments Hospital Follow-up [facility] 09/14/23 Care Teams (unrecognized sec tion and content) Team Status: Active Member Role Status Dates Sandra Keita DO Primary Care Provider Active Team Status: Inactive Member Role Status Dates Sandra Keita DO Primary Care Provider Active Start: June 12, 2023 End: June 12, 2023 Angelique Russell APRN Attending Provider Active Start: June 12, 2023 End: June 12, 2023 Team Status: Active Member Role Status Dates Darrell Yoder , Primary Care Provider Acti ve Falguni Fine MD Active Kelly Giang PA-C Active Angelique Russell APRN Attending Provider Active Team Status: Inactive Member Role Status Dates Sandra Keita DO Primary Care Provider, Bradford hartley Active Team Status: Inactive Member Role Status Dates Tray Randle , Emergency Provider Active Shira Stephen MD Admit Provider Active Walter Montgomery DO Other Provider Active Teresa Strong MD Other Provider Active Wilmer Vance MD Attending Provider Active Darrell Yoder DO Primary Care Provider Acti ve Team Status: Inactive Member Role Status Dates PHYSICIAN NO FAMILY Primary Care Provider Active Rl Villavicencio DO Emergency Provider Active Team Status: Active Member Role Status Dates PHYSICIAN NO FAMILY Primary Care Provider Active Team Status: Inactive Member Role Status Dates Sandra Keita DO Primary Care Provide r, Attending Provider Active Start: June 19, 2023 End: June 19, 2023 Team Status: Inactive Member Role Status Dates Sandra Keita DO Primary Care Provider Active Start: July 17, 2023 End: July 17, 2023 Tray Nava MD Attending Provider Active Start: July 17, 2023 End: July 17, 2023 Team Status: Inactive Member Role Status Dates Sandra Keita DO Primary Care Provide r, Attending Provider Active Start: July 25, 2023 End: July 25, 2023 Team Status: Inactive Member Role Status Dates Sandra Keita DO Primary Care Provider Active Start: September 05, 2023 End: September 05, 2023 Angelique Russell APRN Attending Provider Active Start: September 05, 2023 End: September 05, 2023 Team Status: Active Member Role Status Dates Sandra Keita DO Primary Care Provider Active Start: September 09, 2023 Tolu Salinas APRN Attending Provider Active Start: September 09, 2023 Team Status: Inactive Member Role Status Dates Sandra Keita DO Primary Care Provider Active Start: September 12, 2023 End: September 12, 2023 Angelique Russell APRN Attending Provider Active Start: September 12, 2023 End: September 12, 2023 Team Status: Inactive Member Role Status Dates Sandra Keita DO Primary Care Provider Active Start: September 13, 2023 End: September 14, 2023 Haider Valenzuela DO Emergency Provider Active Sta rt: September 13, 2023 End: September 14, 2023 Elva Florian MD Admit Provider, Atte nding Provider Active Start: September 13, 2023 End: September 14, 2023 Marli Paz RN Other Provider Active Star t: September 13, 2023 End: September 14, 2023 Elly Yoo DO Other Provider Active Start : September 13, 2023 End: September 14, 2023 Ric Hutchison MD Other Provider Active Start: September 13, 2023 End: September 14, 2023 Darrell Ch MD Other Provider Active Start: September 13, 2023 End: September 14, 2023 Thuan Wise MD Other Provider Active St art: September 13, 2023 End: September 14, 2023 Manjit Barbosa MD Other Provider Active Start: September 13, 2023 End: September 14, 2023 Naida Fritz APRN Other Provider Active Start : September 13, 2023 End: September 14, 2023 Stephanie Stoll MD Other Provider Active Start: Zneon brown 2023 End: September 14, 2023 Jann Kaplan MD Other Provider Active Start: September 13, 2023 End: September 14, 2023 Cara Tenorio MD Other Provider Active Start: M ay 2023 End: September 14, 2023 Elizabeth Parra [facility] Other Provider Active Sta rt: September 13, 2023 End: September 14, 2023 Ashley Cheatham MD Other Provider Active Start: September 13, 2023 End: September 14, 2023 Team Status: Active Member Role Status Dates Sandra Keita DO Primary Care Provider Active Start: September 14, 2023 Haider Valenzuela DO Emergency Provider Active Sta rt: September 14, 2023 Elva Florian MD Admit Provider, Othe r Provider Active Start: September 14, 2023 Marli Paz RN Other Provider Active Star t: September 14, 2023 Elly Yoo DO Other Provider Active Start : September 14, 2023 Ric Hutchison MD Other Provider Active Start: September 14, 2023 Darrell Ch MD Other Provider Active Start: September 14, 2023 Thuan Wise MD Other Provider Active St art: September 14, 2023 Manjit Barbosa MD Other Provider Active Start: September 14, 2023 Naida Fritz APRN Other Provider Active Start : September 14, 2023 Stephanie Stoll MD Other Provider Active Start: M ay 2023 Jann Kaplan MD Other Provider Active Start: September 14, 2023 Cara Tenorio MD Other Provider Active Start: M 2023 Elizabeth Parra [facility] Other Provider Active Sta rt: September 14, 2023 Ashley Cheatham MD Other Provider Active Start: September 14, 2023 Faraz Gilliam MD Attending Provider Activ e Start: September 14, 2023 Team Status: Active Member Role Status Dates Sandra Keita DO Primary Care Provider Active Start: September 16, 2023 Loren Denise LPN Attending Provider Active Sta rt: September 16, 2023 Team Status: Inactive Member Role Status Dates Sandra Keita DO Primary Care Provider Active Start: September 17, 2023 End: September 17, 2023 Tolu Salinas APRN Attending Provider Active Start: September 17, 2023 End: September 17, 2023 Supervisor Cook Room Relationship Specialty Start Date End Date Sandra Keita DO [address] [facility] [place] [address] PCP - General Family Medicine 09/25/23 Team Status: Active Member Role Status Dates Sandra Keita DO Primary Care Provider Active Start: September 14, 2023 End: September 14, 2023 Haider Valenzuela DO Emergency Provider Active Sta rt: September 14, 2023 End: September 14, 2023 Elva Florian MD Admit Provider, Othe r Provider Active Start: September 14, 2023 End: September 14, 2023 Marli Paz RN Other Provider Active Star t: September 14, 2023 End: September 14, 2023 Elly Yoo DO Other Provider Active Start : September 14, 2023 End: September 14, 2023 Ric Hutchison MD Other Provider Active Start: September 14, 2023 End: September 14, 2023 Darrell Ch MD Other Provider Active Start: September 14, 2023 End: September 14, 2023 Thuan Wise MD Other Provider Active St art: September 14, 2023 End: September 14, 2023 Manjit Barbosa MD Other Provider Active Start: September 14, 2023 End: September 14, 2023 Naida Fritz APRN Other Provider Active Start : September 14, 2023 End: September 14, 2023 Stephanie Stoll MD Other Provider Active Start: Zenon brown 2023 End: September 14, 2023 Jann Kaplan MD Other Provider Active Start: September 14, 2023 End: September 14, 2023 Cara Tenorio MD Other Provider Active Start: Zenon brown 2023 End: September 14, 2023 Elizabeth Parra , [facility]- Other Provider Active Sta rt: September 14, 2023 End: September 14, 2023 Ashley Cheatham MD Other Provider Active Start: September 14, 2023 End: September 14, 2023 Faraz Gilliam MD Attending Provider Activ e Start: September 14, 2023 End: September 14, 2023 Team Status: Inactive Member Role Status Dates Sandra Keita DO Primary Care Provider Active Start: October 30, 2023 End: October 30, 2023 Oz Kincaid MD Attending Provider Active Start: October 30, 2023 End: October 30, 2023 Team Status: Inactive Member Role Status Dates Sandra Keita DO Primary Care Provider Active Start: November 05, 2023 End: November 05, 2023 Darrell Ch MD Attending Franchesca hartley Referring Provider Active Start: November 05, 2023 End: November 05, 2023 Team Status: Active Member Role Status Dates Sandra Keita DO Primary Care Provider Active Start: November 10, 2023 Rl Villavicencio DO Emergency Provider Active St art: November 10, 2023 Jluis Campos , Admit Provider, Attending Provider Active Start: November 10, 2023 Team Status: Inactive Member Role Status Dates Sandra Keita DO Primary Care Provider Active Start: November 10, 2023 End: November 12, 2023 Rl Villavicencio DO Emergency Provider Active St art: November 10, 2023 End: November 12, 2023 Jluis Campos DO Admit Provider Active Start: November 10, 2023 End: November 12, 2023 Saranya Wright Other Provider Active Start: November 10, 2023 End: November 12, 2023 Cash Aponte , PhD Other Provider Active S tart: November 10, 2023 End: November 12, 2023 Jelly Tuttle DO Other Provider Active Start: November 10, 2023 End: November 12, 2023 John Murillo MD Other Provider Active Start : November 10, 2023 End: November 12, 2023 Lit Clark DO Other Provider Active Start: November 10, 2023 End: November 12, 2023 SHELDON Hollis- Other Provider Active Start: November 10, 2023 End: November 12, 2023 Roque Isidro DO Other Provider Active Start: November 10, 2023 End: November 12, 2023 Tracy Calvo APRN Other Provider Active St art: November 10, 2023 End: November 12, 2023 Tayler Medina NP-C Other Provider Active Sta rt: November 10, 2023 End: November 12, 2023 Jeanine Ibrahim APRN-[employer]-C Other Provider Active Start: November 10, 2023 End: November 12, 2023 Chaka Frye MD Attending Provider Active Start: November 10, 2023 End: November 12, 2023 Team Status: Active Member Role Status Dates Sandra Keita DO Primary Care Provider Active Start: November 13, 2023 Diya Brown Attending Provider Active Start: November 13, 2023 Team Status: Inactive Member Role Status Dates Sandra Keita DO Primary Care Provider Active Start: November 14, 2023 End: November 14, 2023 Angelique Russell APRN Attending Provider Active Start: November 14, 2023 End: November 14, 2023 Team Status: Inactive Member Role Status Dates Sandra Keita DO Primary Care Provider Active Start: November 15, 2023 End: November 15, 2023 Darrell Ch MD Attending Provider Active Start: November 15, 2023 End: November 15, 2023 Team Status: Active Member Role Status Marco A Keita DO Primary Care Provider Active Start: November 16, 2023 Darrell Ch MD Other Provider Active Start: November 16, 2023 Lit Sterling MD Attending Provider Active Start: November 16, 2023 Team Status: Inactive Member Role Status Dates Sandra Keita DO Primary Care Provider Active Start: November 18, 2023 End: November 18, 2023 Tolu Salinas APRN Attending Provider Active Start: November 18, 2023 End: November 18, 2023 Team Status: Inactive Member Role Status Dates Sandra Keita DO Primary Care Provider Active Start: November 26, 2023 End: November 26, 2023 Oz Kincaid MD Attending Provider Active Start: November 26, 2023 End: November 26, 2023 Team Status: Inactive Member Role Status Dates Sandra Keita DO Primary Care Provider Active Start: December 02, 2023 End: December 02, 2023 Oz Kincaid MD Attending Provider Active Start: December 02, 2023 End: December 02, 2023 Tolu Dagokelsea Salinas , NURSING CONSULTANT Referring Provider Active Start: December 02, 2023 End: December 02, 2023 Team Status: Inactive Member Role Status Dates Sandra Keita DO Primary Care Provider Active Start: December 17, 2023 End: December 17, 2023 Oz Kincaid MD Attending Provider Active Start: December 17, 2023 End: December 17, 2023 Team Status: Inactive Member Role Status Dates Sandra Keita DO Primary Care Provider Active Start: January 06, 2024 End: January 06, 2024 Thuan Wise MD Attending Provider Active Start: January 06, 2024 End: January 06, 2024 Team Status: Inactive Member Role Status Dates Karl Fritz DPM Attending Provider Active Start: January 07, 2024 End: January 07, 2024 Team Status: Inactive Member Role Status Dates Haider Eden DO Attending Provider Active S tart: January 15, 2024 End: January 15, 2024 Sandra Keita DO Primary Care Provider Active Start: January 15, 2024 End: January 15, 2024 Supervisor Cook Room Relationship Specialty Start Date End Date Sandra Keita DO [address] [facility] [place] [id number] PCP - General Family Medicine 01/09/23 Goals (unrecognized section and content) Goals may be documented in a n alternate section FOR RECORDS PERTAINING TO PATIENTS WHO ARE OR HAVE BEEN ENROLLED IN A CHEMICAL DEPENDENCY/SUBSTANCEABUSE PROGRAM, SOME INFORMATION MAY BE OMITTED. This clinical summary was aggregated from multiple sources. Caution should be exercised in using it in the provision of clinical care. This summary normalizes information from multiple sources, and as a consequence, information in this document may materially change the coding, format and clinical context of patient data. In addition, data may be omitted in some cases. CLINICAL DECISIONS SHOULD BE BASED ON THE PRIMARY CLINICAL RECORDS. [facility] [employer] [facility]. provides no warranty or guarantee of the accuracy or completeness of information in this document.
[2024-02-08 10:15] LABS: Vitamin B12 1196 pg/mL (232-1245)
[2024-02-12 12:10] LABS: Methylmalonic Acid, Serum 136 nmol/L (0-378)
== END 2024-02-07 12:52 | disposition home or self-care (01) ==
LOC: LAB 12:51
PROVIDERS: Family Provider Family Medicine; PCP Specialist; Visit Provider Psychiatry & Neurology Neurology
DX: G62.9 Polyneuropathy, unspecified (principal); R79.89 Other specified abnormal findings of blood chemistry; G60.9 Hereditary and idiopathic neuropathy, unspecified; Z11.3 Encounter for screening for infections with a predominantly sexual mode of transmission; E53.1 Pyridoxine deficiency; I70.91 Generalized atherosclerosis; D51.3 Other dietary vitamin B12 deficiency anemia; M79.10 Myalgia, unspecified site; E78.5 Hyperlipidemia, unspecified
CPT/HCPCS: 36415; 82607; 82746; 83090; 83921

== ENCOUNTER 2024-02-13 12:57 | Outpatient (REF) | payer MEDICARE, MEDICAID, SELFPAY ==
[2024-02-14 05:08] LABS: Homocyst(e)ine 8.1 umol/L (0.0-17.2)
== END 2024-02-13 12:58 | disposition home or self-care (01) ==
LOC: LAB 12:57
PROVIDERS: Family Provider Family Medicine; PCP Specialist
DX: G62.9 Polyneuropathy, unspecified (principal); R79.89 Other specified abnormal findings of blood chemistry; G60.9 Hereditary and idiopathic neuropathy, unspecified; Z11.3 Encounter for screening for infections with a predominantly sexual mode of transmission; E53.1 Pyridoxine deficiency; I70.91 Generalized atherosclerosis
CPT/HCPCS: 36415; 83090

== ENCOUNTER 2024-03-23 11:41 | Outpatient (REF) | payer MEDICARE, MEDICAID, SELFPAY ==
[2024-03-23 12:18] LABS: Basophils Absolute Auto 0.1 10^3/uL (0.0-0.1); Basophils Percent Auto 0.7 % (0.2-2.0); Eosinophils Absolute Auto 0.4 10^3/uL (0.0-0.7); Hematocrit 48.7 % (36.0-48.0); Hemoglobin 15.4 g/dL (12.0-16.0); Immature Granulocytes Abs Auto 0.09 10^3/uL (0.00-0.03); Immature Granulocytes Pct Auto 1.2 % (0.0-0.5); Lymphocytes Absolute Auto 2.2 10^3/uL (1.2-3.8); Mean Corpuscular HGB Conc 31.6 g/dL (29.9-35.2); Mean Corpuscular Hemoglobin 30.7 pg (26.7-34.0); Mean Platelet Volume 12.2 fL (9.5-13.5); Monocytes Absolute Auto 0.6 10^3/uL (0.3-0.8); Monocytes Percent Auto 7.8 % (1.7-12.0); Neutrophils Absolute Auto 4.1 10^3/uL (1.4-6.5); Neutrophils Percent Auto 55.3 % (43.0-75.0); Platelet Count 121 10^3/uL (150-450); Red Blood Count 5.02 10^6/uL (4.20-5.40); Red Cell Distribution Width 13.7 % (11.0-15.0); White Blood Count 7.4 10^3/uL (4.0-11.0)
[2024-03-23 12:44] LABS: Erythrocyte Sedimentation Rate 23 mm/hr (<=30)
[2024-03-23 13:05] LABS: Bilirubin Urine NEGATIVE (NEGATIVE); Blood Urine NEGATIVE (NEGATIVE); Clarity Urine SL CLOUDY (CLEAR); Color Urine LT. YELLOW (YELLOW); Glucose Urine UA NEGATIVE (NEGATIVE); Ketones Urine TRACE mg/dL (NEGATIVE); Leukocyte Esterase Urine SMALL (NEGATIVE); Nitrite Urine NEGATIVE (NEGATIVE); Protein Urine NEGATIVE (NEG/TRACE); Specific Gravity Urine 1.025 (1.005-1.025)
[2024-03-23 13:13] LABS: C Reactive Protein <0.50 mg/dL (<=0.50); Estimated GFR (African America >60 (>=60 mL/min/1.73m^2); Estimated GFR (Non-African Ame 53 (>=60 mL/min/1.73m^2)
[2024-03-23 14:12] LABS: Mucus Urine NONE SEEN (NONE SEEN); Squamous Epithelial Cell Urine MODERATE #/LPF (NONE/RARE)
[2024-03-23 14:17] LABS: Bacteria Urine LARGE #/HPF (NONE SEEN)
[2024-03-23 14:22] LABS: RBC Urine 0-2 #/HPF (0-2)
[2024-03-23 14:23] LABS: Calcium Oxalate Crystals Urine MODERATE; Cast Seen? NONE SEEN #/LPF (NONE SEEN); Crystals Seen? Seen #/HPF (None Seen)
[2024-03-24 04:07] LABS: Complement C3, Serum 124 mg/dL (82-167); Complement C4, Serum 24 mg/dL (12-38)
[2024-03-24 09:09] LABS: Antiscleroderma-70 Antibodies <0.2 AI (0.0-0.9)
== END 2024-03-23 11:42 | disposition home or self-care (01) ==
LOC: LAB 11:41
PROVIDERS: Family Provider Family Medicine; PCP Specialist; Visit Provider Internal Medicine Rheumatology
DX: R76.0 Raised antibody titer (principal)
CPT/HCPCS: 36415; 81001; 82565; 85025; 85652; 86140; 86160; 86235

== ENCOUNTER 2024-06-04 18:02 | Emergency (ER) | payer MEDICARE, MEDICAID, SELFPAY ==
[2024-06-04 18:09] VITALS: BP 132/88; PULSE 90; TEMP 36.8; O2SAT 98; BMI 39.2
--- OUTSIDE RECORDS SUMMARY | 2024-06-04 18:11 | XMS_ITS | CCD ---
Author Organization [facility] Care Team Providers Care Transfusion Nurse Name Role Phone MATTHEW VOSS MD Unavailable Unavailable UNASSIGNED, DOCTOR Unavailable Unavailable SUKHWINDER, ELOISA Unavailable Unavailable SUKHWINDER, ELOISA Unavailable Unavailable SUKHWINDER, ELOISA Unavailable Unavailable JONAS YODER Unavailable Unavailab Tray Stockton Unavailable Angelique Russell Unavailable Crispin Looney Unavailable Ruben Hahn Unavailable DO Tray Randle Emergency Provider Unavai MD Arleen Ralph Admit Provider DO Walter Montgomery Other Provider MD Teresa Strong Other Provider MD Wilmer Vance Attending Provider DO Jonas Yoder Primary Care Provider NO FAMILY, PHYSICIAN Primary Care Provider Unava ilable DO Reynold Daily Emergency Provider Francesca Santos Attending Unavailable ARLEEN STEPHEN Referring Unavailable Teresa Strong Attending Unavailable ARLEEN STEPHEN Referring Unavailable Teresa Strong Attending Unavailable Teresa Strong Attending Unavailable Sandra Keita Unavailable Tolu Salinas Unavailable DO Sandra Keita Primary Care Provider DO Sandra Keita Attending Provider Reyna Dallas Unavailable Brayden Noble Unavailable [phone] DO Jonas Yoder Primary Care Provider NITZA Russell Attending Provider [phone] Keita, DO Sandra A Primary Care Provider Keita, DO Sandra A Attending Provider Keita, DO Sandra A Primary Care Provider Keita, DO Sandra A Attending Provider NITZA Russell Attending Provider DO Edgar Valenzuela Emergency Provider MD Elva Florian Admit Provider MD Elva Florian Attending Provider BRENDA Pazher Other Provider Unavailable DO Elly Yoo Other Provider MD Ric Lamar Other Provider MD Jonas Ch Other Provider MD Thuan Wise Other Provider MD Manjit Barbosa Other Provider NITZA Fritz Other Provider MD Stephanie Stoll Other Provider MD Jann Kaplan Naaretha Other Provider MD Cara Tenorio Other Provider Fidel [facility] Elizabeth Samayoa Other Provider MD Ashley Cheatham Other Provider Debbie BONNER, Sandra A Primary Care Provider Debbie, Sandra A Primary Care Provider MD Oz Kincaid Attending Provider MD Jonas Ch Attending Provider DO Reynold Daily Emergency Provider DO Jluis Campos Admit Provider [phone] DO Jluis Campos Attending Provider Saranya Wright Other Provider Unavailable Fay, PhD Cash Other Provider DO Jelly Tuttle Other Provider MD John Murillo Other Provider [phone] DO Lit Clark [facility] Dayana Other Provider DO Roque Isidro Other Provider NITZA Calvo Other Provider CHERYL Medina Other Provider [phone] NITZA [facility] Jeanine E Other Provider MD Chaka Frye Attending Provider DO Reynold Daily Emergency Provider DO Jluis Campos Admit Provider aSranya Wright Other Provider Unavailable Fay, PhD Cash Other Provider DO Jelly Tuttle Other Provider MD John Murillo Other Provider DO Lit Clark Other Provider Dar [facility] Dayana Other Provider DO Roque Isidro Other Provider NITZA Calvo Other Provider CHERYL Medina Other Provider NITZA [facility] Jeanine E Other Provider MD Chaka Frye Attending Provider [phone] NITZA Salinas Referring Provider [phone] Keita, DO Sandra A Primary Care Provider MD Jonas Ch Referring Provider MD Thuan Wise Attending Provider BARRIE Fritz Attending Provider [phone] Keita DO, Sandra Primary Care Provider Keita, DO Sandra A Primary Care Provider MD Oz Kincaid Attending Provider [phone] ZO KINCAID Attending Unavailable JALYN ARMENDARIZ Attending Unavailable OZ KINCAID Referring Unavailable OZ KINCAID Attending Unavailable OZ KINCAID Referring Unavailable OZ KINCIAD Attending Unavailable OZ KINCAID Attending Unavailable OZ KINCAID Referring Unavailable OZ KINCAID Attending Unavailable OZ KINCAID Referring Unavailable KARL FRITZ Attending Unavailable OZ KINCAID Attending Unavailable KARL FRITZ Attending Unavailable KARL FRITZ Attending Unavailable KARL FRITZ Attending Unavailable OZ KINCAID Attending Unavailable OZ KINCAID Attending Unavailable KARL FRITZ Attending Unavailable Keita DO, Sandra A Primary Care Provider Manjit Gleason MD Attending Provider Reynold Daily DO Emergency Provider Wesley Villafuerte PA-C Emergency Provider Chico Hearn DO Admit Provider Chico Hearn DO Attending Provider Priscilla Lang MD Attending Provider [phone] Lit Clark DO Other Provider DEBBIE, SANDRA A Primary Care Unavailable JONAS CH Attending Unavailable DEBBIE, SANDRA A Primary Care Unavailable JONAS HC Attending Unavailable KEITA, SANDRA A Primary Care Unavailable JONAS CH Referring Unavailable THUAN WISE Referring Unavailable KEITA, SANDRA A Primary Care Unavailable THUAN WISE Attending Unavailable KEITA, SANDRA A Primary Care Unavailable TRABOULSSI, MOURHAF Referring Unavailable TRABOULSSI, MOURHAF Attending Unavailable TRABOULSSI, MOURHAF Referring Unavailable KEITA, SANDRA A Primary Care Unavailable Keita DO, Sandra A Primary Care Provider [phone] Keita DO, Sandra A Attending Provider Lit Clark Consulting Unavailab Priscilla Kovacs Attending Unavailable Chico Hearn Admitting Unavailable Keita, Sandra A Primary Care Unavailable Keita, Sandra A Primary Care Unavailable Elva Florian Admitting Unavailable Elva Florian Attending Unavailable Marli Paz Consulting Unavailable Elly Yoo Consulting Unavailable Ric Lamar Consulting Unavailable Jonas Ch Consulting Unavail able Govind, Thuan Consulting Unavailable Manjit Barbosa Consulting Unavailab Naida Pulliam Consulting Unavailable Stephanie Stoll Consulting Unavailable Jann Kaplan Consulting Unavailab Cara Spencer Consulting Unavailable Elizabeth Parra Consulting Unavailable Ashley Cheatham Consulting Unavailable Reynold Daily Attending Unavailable Reynold Daily Admitting Unavailable Keita, Sandra A Primary Care Unavailable Chaka Frye Attending Unavailab Saranya Thomas Consulting Unavailable Jluis Campos Admitting Unavailable Keita, Sandra A Primary Care Unavailable Cash Aponte Consulting Unavailable Jelly Tuttle Consulting Unavailable John Murillo Consulting Unavailable Lit Clark Consulting Unavailab Dayana Macias Consulting Unavailable Roque Isidro Consulting Unavailable Tracy Calvo Consulting Unavailable Tayler Medina Consulting Unavailable Jeanine Ibrahim Consulting Unavailable Keita, Sandra A Admitting Unavailable Keita, Sandra A Attending Unavailable Keita, Sandra A Primary Care Unavailable Keita, Sandra A Primary Care Unavailable Oz Kincaid Attending Unavailable Oz Kincaid Admitting Unavailable Tolu Salinas Referring Unavailable Keita, Sandra A Primary Care Unavailable Oz Kincaid Attending Unavailable Oz Kincaid Admitting Unavailable Karl Fritz Attending Unavailable Karl Fritz Admitting Unavailable Mapus, Tondra K Admitting Unavailable Mapus, Tondra K Attending Unavailable Keita, Sandra A Primary Care Unavailable Keita, Sandra A Primary Care Unavailable Oz Kincaid Referring Unavailable Nataliya Jane Attending Unavail able Nataliya Jane Admitting Unavail able Keita, Sandra A Primary Care Unavailable Oz Kincaid Attending Unavailable Oz Kincaid Admitting Unavailable Keita, Sandra A Primary Care Unavailable Thuan Wise Attending Unavailable RicaoulTenzin johamagalie Admitting Unavailable Keita, Sandra A Primary Care Unavailable Keita, Sandra A Attending Unavailable Keita, Sandra A Admitting Unavailable Keita, Sandra A Primary Care Unavailable Oz Kincaid Attending Unavailable Codi, Oz Snyder Admitting Unavailable Keita, Sandra A Primary Care Unavailable Jonas Ch Referring Unavail able Jonas Ch Attending Unavail able Jonas Ch Admitting Unavail able Keita, Sandra A Primary Care Unavailable Asaad, Imad Attending Unavailable Asaad, Imad Admitting Unavailable Mapus, Tondra K Admitting Unavailable Mapus, Tondra K Attending Unavailable Keita, Sandra A Primary Care Unavailable Keita, Sandra A Primary Care Unavailable Jonas Ch Attending Unavail able Jonas Ch Admitting Unavail able Allergies Allergy Classification Reported Allergen(s) Allergy Type Date of Onset Reaction(s) Facility (20 sources) Sulfamethoxazole ; 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: [sulfamethoxazol e] Drug Allergy 3 Unknown [facility] Repository (14 sources) Sulfonamides (Antibiotic); 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: [SULFA (SULFONAMIDE ANTIBIOTICS)] Allergy to substance 9 GI intolerance, Unknown, Nausea/vomiting [facility] (20 sources) Sulfonamides (Antibiotic) Drug Allergy 9 GI [...] Subcutaneous once weekly for 28 days Active apixaban 5 mg oral tablet (20 sources) Factor Xa Inhibitor Start: 09-14-2023 End: 10-10-2024 take 1 tablet by mouth twice daily Apixaban (Eliquis) 5 mg tablet Active 5 MG PO Twice daily December 03, 2023 12:05pm aspirin 81 mg delayed release oral tablet (20 sources) Platelet Aggregation Inhibitor, Nonsteroidal Anti-inflammatory Drug Start: 02-09-2021 take 1 tablet by mouth once daily Aspirin 81 mg Tablet,Delayed Release (Dr/Ec) Active 81 MG PO Daily February 08, 2021 11:00pm take 1 tablet by mouth once jonah [...] for 3 days for 3 DCed Active carvedilol 12.5 mg oral tablet (14 sources) alpha-Adrenergic Debbie, beta-Adrenergic Debbie Start: 03-09-2024 End: 03-09-2025 take 1 tablet by mouth twice daily Carvedilol 12.5 mg tablet Active 12.5 MG PO Twice daily April 14, 2024 12:00am cefuroxime 500 mg oral tablet (20 sources) Cephalosporin Antibacterial Start: 04-30-2024 take 1 tablet by mouth twice daily Cefuroxime Axetil 500 mg tablet Active 500 MG PO Twice daily 14 April 30, 2024 12:00am Start: 12-13-2021 End: 10-10-2022 take 1 tablet by mouth twice daily Cefuroxime Axetil 500 mg tablet Discontinued 500 MG PO Twice daily 6 December 12, 2021 11:00pm October 10, 2022 11:16am Start: 12-13-2021 take 500 mg by mouth twice daily Cefuroxime Axetil Active 500 MG PO Twice daily 6 December 13, 2021 12:00am Start: 12-13-2021 take 500 mg by mouth twice daily Cefuroxime Axetil Active 500 MG PO Twice daily 6 3 December 13, 2021 12:00am Continuous Blood Gluc Sensor (FreeStyle Brent 14 Day Sensor) misc (20 sources) Start: 12-21-2022 Continuous Blood Gluc Sensor (FreeStyle Brent 14 Day Sensor) misc apply 1 SENSOR as directed every 14 days use with DEVICE to MONIT... (REFER TO PRESCRIPTION NOTES). 12/21/2022 Active cyclobenzaprine hydrochloride 10 mg oral tablet (20 sources) Muscle Relaxant Start: 05-15-2024 take 1-2 tablets by mouth at bedtime cyclobenzaprine (Flexeril) 10 MG tablet Indications: Cervical paraspinal muscle spasm , Lumbar paraspinal muscle spasm TAKE 1 TO 2 TABLETS BY MOUTH AT BEDTIME 60 tablet 3 05/15/2024 Active Start: 01-15-2024 Cyclobenzaprin e Active MG PO January 15, 2024 12:00am Start: 01-07-2024 End: 04-30-2024 Cyclobenzaprine 10 mg tablet Discontinued 10 MG PO As Directed as needed for muscle spasm January 14, 2024 11:00pm April 30, 2024 10:27am docusate sodium 100 mg oral capsule (20 sources) Start: 06-12-2023 take 1 capsule by mo uth once daily as needed for constipation Docusate Sodium (Stool Softener) 100 mg capsule Active 100 MG PO Daily as needed for constipation June 12, 2023 3:41pm Start: 02-09-2021 End: 06-12-2023 take 1 capsule by mouth three times daily Docusate Sodium (Stool Softener) 100 mg capsule Discontinued 100 MG PO Three times daily June 12, 2023 8:08am June 12, 2023 3:43pm take 1 capsule by mo uth twice daily docusate sodium (Colace) 100 mg capsule Take 1 capsule (100 mg) by mouth 2 times a day. Active Stool Softener 1 00 MG 3 tablet as needed in the morning and 1 tablet in the evening Orally bid PRN Active donepezil hydrochloride 10 mg oral tablet (16 sources) Start: 02-25-2024 take 2 tablets by mouth once daily Donepezil 10 mg tablet Active 20 MG PO Daily April 28, 2024 12:00am Easy Touch Lancing Device - (4 sources) Easy Touch Lanci ng Device - as directed Active empagliflozin 25 mg oral tablet (20 sources) Sodium-Glucose Cotransporter 2 Inhibitor Start: 02-09-2021 End: 04-28-2024 take 1 tablet by mouth once daily Empagliflozin (Jardiance) 25 mg tablet Active 25 MG PO Daily April 28, 2024 12:58pm Flash Glucose Sensor (Freestyle Brent 14 Day Sensor) kit (20 sources) Start: 01-10-2024 Flash Glucose Sensor (Freestyle Brent 14 Day Sensor) kit Active 0 .ROUTE .MEDSUPPLY January 09, 2024 11:00pm As directed Change every 14 days Start: 01-10-2024 Flash Glucose Sensor (Freestyle Brent 14 Day Sensor) kit Active 0 .ROUTE .MEDSUPPLY January 10, 2024 12:00am As directed Change every 14 days Start: 07-22-2023 End: 04-28-2024 Flash Glucose Sensor (Freest yle Brent 14 Day Sensor) kit Discontinued 0 .ROUTE .MEDSUPPLY July 21, 2023 11:00pm April 28, 2024 11:40am As directed Change every 14 days Start: 07-22-2023 Flash Glucose Sensor (Freestyle Brent 14 Day Sensor) kit Active 0 .ROUTE .MEDSUPPLY July 22, 2023 12:00am As directed Change every 14 days folic acid 1 mg oral tablet (20 sources) Start: 05-11-2024 take 1 tablet by mouth once daily Folic Acid 1 mg tablet Active 0 .ROUTE .COMPLEX May 11, 2024 7:37am TAKE 1 TABLET BY MOUTH EVERY DAY Start: 02-09-2021 End: 05-11-2024 take 1 tablet by mouth once daily Folic Acid 1 mg tablet Discontinued 1 MG PO Daily October 16, 2023 6:36am May 11, 2024 7:38am FreeStyle Brent 14 Day Senso r - (20 sources) FreeStyle Brent 14 Day Sensor - apply 1 SENSOR as directed every 14 days use with DEVICE to MONITOR BLOOD SUGAR Sub Q Change every 14 days for 28 days Active FreeStyle Brent 14 Day Sensor - apply 1 SENSOR as directed every 14 days use with DEVICE to MONITOR BLOOD SUGAR before meals at bedtime and if needed SQ 28 days for 28 Active FreeStyle Brent 14 Day Sensor - apply 1 SENSOR as directed every 14 days use with DEVICE to MONITOR BLOOD SUGAR before meals at bedtime and if needed SQ as directed for 28 days Active FreeStyle Brent 14 Day Sensor - apply 1 SENSOR as directed every 14 days use with DEVICE to MONITOR BLOOD SUGAR before meals at bedtime and if needed for 28 Active FreeStyle Brent Sensor (20 sources) FreeStyle Brent Sensor use with brent reader SQ change q 14 days, check glucose ac, hs and prn for 84 days Active FreeStyle Brent Sensor use with brent reader SQ change q 14 days, check glucose ac, hs and prn Active furosemide 20 mg oral tablet (2 sources) Loop Diuretic Start: 05-07-2024 Furosemide 20 mg tablet Active 20 MG PO Every 48 hours May 07, 2024 12:00am 1.5 ml insulin glargine 300 unt/ml pen injector (20 sources) Insulin Analog Start: 04-28-2024 inject 22 [IU] by subcutaneous injection once daily Insulin Glargine U-300 Conc (Toujeo Solostar U-300 Insulin) 300 unit/mL (1.5 mL) insulin pen Active 22 UNIT SUBCUT Daily April 28, 2024 12:59pm Start: 06-12-2023 End: 04-28-2024 inject 20 [IU] by subcutaneous injection once daily Insulin Glargine U-300 Conc (Toujeo Solostar U-300 Insulin) 300 unit/mL (1.5 mL) insulin pen Discontinued 20 UNIT SUBCUT Daily November 14, 2023 3:09pm April 28, 2024 12:59pm Start: 12-12-2022 Toujeo SoloSta r 300 UNIT/ML injection inject 20 units subcutaneously as directed 12/12/2022 Active Start: 12-12-2022 insulin glargi ne (Toujeo Solostar- 1 unit dial) 300 unit/mL (1.5 mL) injection 20 Units. 12/12/2022 Active Start: 10-10-2022 End: 06-12-2023 Insulin Glargine U-300 Conc (Toujeo Solostar U-300 Insulin) 300 unit/mL (1.5 mL) insulin pen Discontinued UNIT SUBCUT October 09, 2022 11:00pm June 12, 2023 8:13am Start: 01-09-2022 inject 20 [IU] by razo bcutaneous injection once daily Ashley ChristopheroStar 300 UNIT/ML 20 units once daily Subcutaneous as directed for 90 days (titrate up to 30 units/day) Dec, Active Insulin Lispro (20 sources) Insulin Analog Start: 12-23-2023 Insulin Lispro Active 0 SUBCUT Before meals and at bedtime December 23, 2023 4:11pm subcutaneously before meals and at bedtime; 1:50 corrective scale (expect up to 20 units/day) Start: 08-26-2023 HumaLOG KwikPe n Insulin 100 unit/mL injection inject subcutaneously before meals and at bedtime 1:50 CORRECTIVE SCALE (EXPECT UP TO 20 UNITS/DAY 08/26/2023 Active Start: 06-12-2023 End: 12-23-2023 Insulin Lispro Discontinued [...] 1:50 corrective scale Subcutaneous ac tid Not-Taking Insulin Lispro 100 unit/mL insulin pen (10 sources) Start: 12-23-2023 Insulin Lispro 100 unit/mL insulin pen Active 0 SUBCUT Before meals and at bedtime December 23, 2023 3:11pm subcutaneously before meals and at bedtime; 1:50 corrective scale (expect up to 20 units/day) Start: 06-12-2023 End: 12-23-2023 Insulin Lispro 100 unit/mL i nsulin pen Discontinued 0 SUBCUT Before meals and at bedtime June 12, 2023 8:05am December 23, 2023 3:14pm subcutaneously before meals and at bedtime; 1:50 corrective scale (expect up to 20 units/day) 1 ml ketorolac tromethamine 30 mg/ml cartridge (2 sources) Nonsteroidal Anti-inflammatory Drug, Cyclooxygenase Inhibitor Start: 01-03-2024 End: 01-03-2024 ketorolac (Toradol) injection 30 mg Start: 01-03-2024 End: 01-03-2024 inject 30 mg by subcutaneous injection once 30 mg, Intramuscular, Once, On Sat01/03/24 at 1745, For 1 dose, Subcutaneous lidocaine 0.05 mg/mg topical ointment (20 sources) Antiarrhythmic, Amide Local Anesthetic Start: 04-28-2024 Lidocaine 5 % ointment Active 1 APPLIC TOPICAL Daily as needed for pain April 28, 2024 12:00am Start: 01-30-2024 End: 01-29-2025 lidocaine (Xylocaine) 5 % oi ntment Indications: Ulcer of right foot, limited to breakdown of skin (CMS/HCC) Apply topically Daily Use as needed over the wound sites with dressing changes. 50 g 2 01/30/2024 01/29/2025 Active Start: 01-03-2024 End: 01-03-2024 lidocaine (Xylocaine) 1 % in jection 6 mg Start: 01-03-2024 End: 01-03-2024 6 mg (0.6 mL), Injection, On ce, On Sat01/03/24 at 1745, For 1 dose, Added to dexamethasone or ketorolac for therapeutic injection. magnesium oxide 400 mg oral tablet (20 sources) Start: 01-29-2024 take 1 tablet by mouth twice daily Magnesium Oxide 400 mg (241.3 mg magnesium) tablet Active 0 .ROUTE .COMPLEX 180 January 29, 2024 9:22am TAKE 1 TABLET BY MOUTH TWICE A DAY Start: 01-29-2024 take 1 tablet by umer twice daily Magnesium Oxide Active 0 .ROUTE .COMPLEX 180 January 29, 2024 10:22am TAKE 1 TABLET BY MOUTH TWICE A DAY Start: 11-18-2023 End: 01-29-2024 take 1 tablet by mouth twice daily Magnesium Oxide (Magox) 400 mg (241.3 mg magnesium) tablet Discontinued 400 MG PO Twice daily December 03, 2023 12:06pm January 29, 2024 9:23am Start: 09-14-2023 End: 10-10-2024 take 1 tablet by mouth once daily Magnesium Oxide (Magox) 400 mg (241.3 mg magnesium) tablet Discontinued 400 MG PO Daily September 13, 2023 11:00pm November 18, 2023 1:05pm memantine hydrochloride 10 mg oral tablet (16 sources) W-bsyyea-X-aspartate Receptor Antagonist Start: 04-28-2024 take 1 tablet by mouth twice daily Memantine 10 mg tablet Active 10 MG PO Twice daily April 28, 2024 12:00am Start: 02-25-2024 memantine (Nam enda) 10 MG tablet Indications: Cognitive decline 1 tab every day x3-5 days then BID 60 tablet 3 02/25/2024 Active metFORMIN hydrochloride 500 mg oral tablet (20 sources) Biguanide Start: 08-26-2023 take 1 tablet by mouth twice daily at mealtime Metformin 500 mg tablet Active 0 .ROUTE .COMPLEX 180 August 26, 2023 9:13am take 1 tablet by mouth twice a day with meals Start: 02-09-2021 End: 08-26-2023 take 1 tablet by mouth twice daily Metformin 500 mg Tablet Discontinued 500 MG PO Twice daily February 08, 2021 11:00pm August 26, 2023 9:13am Miscellaneous Medical Supply (20 sources) Start: 11-26-2023 [...] Start: 02-09-2021 take 1 tablet by umer twice daily Multivitamin Active 1 TAB PO Twice daily February 08, 2021 11:00pm Start: 02-09-2021 take 1 tablet by umer twice daily Multivitamin Active 1 TAB PO Twice daily February 09, 2021 12:00am take 1 tablet by umer once daily Multivitamin - 1 tablet Orally Once a day Active Multivitamin tablet (5 sources) Start: 06-12-2023 take 1 tablet by mouth once daily Multivitamin tablet Active 1 TAB PO Daily June 12, 2023 8:10am 24 hr nicotine 0.875 mg/hr transdermal system (2 sources) Cholinergic Nicotinic Agonist Start: 05-07-2024 apply 1 dose transdermal route every twenty-four hours Nicotine 21 mg/24 hr patch 24 hour Active 1 PATCH TRANSDERML Daily May 07, 2024 12:00am nortriptyline 25 mg oral capsule (20 sources) Tricyclic Antidepressant Start: 02-25-2024 End: 08-23-2024 take 1 capsule by mouth once daily at bedtime Nortriptyline 25 mg capsule Active 25 MG PO Daily at bedtime April 28, 2024 12:00am Start: 06-18-2023 End: 11-18-2023 take 100 mg by mouth once daily Nortriptyline Disconti nued 100 MG PO Daily 180 90 October 16, 2023 7:37am November 18, 2023 2:05pm Start: 01-04-2023 End: 02-25-2024 take 1 capsule by mouth once daily Nortriptyline 50 mg capsule Discontinued 50 MG PO Daily 90 90 November 18, 2023 1:01pm February 03, 2024 11:05am Start: 01-04-2023 End: 12-16-2023 take 2 capsules by mouth once daily at bedtime nortriptyline (Pamelor) 50 mg capsule Take 2 capsules (100 mg) by mouth once daily at bedtime. 01/04/2023 12/16/2023 Discontinued (Therapy completed) Start: 02-09-2021 End: 06-18-2023 take 1 capsule by mouth twice daily Nortriptyline 50 mg capsule Discontinued 50 MG PO Twice daily June 12, 2023 8:07am June 18, 2023 7:10pm take 1 capsule by mo [facility] every twenty-four hours Nortriptyline HCl 50 MG 1 capsules Orally Once a day Active omeprazole 20 mg delayed release oral capsule (20 sources) Proton Pump Inhibitor Start: 07-01-2023 End: 01-06-2024 take 1 capsule by mouth once daily Omeprazole 20 mg capsule,delayed release(DR/EC) Active 0 .ROUTE .COMPLEX 90 January 06, 2024 11:36am take 1 capsule by mouth once daily Start: 01-02-2023 omeprazole (Pr iLOSEC) [address] capsule 01/02/2023 Active Start: 02-09-2021 End: 07-01-2023 take 1 tablet by mouth once daily Omeprazole 20 mg Tablet,Delayed Release (Dr/Ec) Discontinued 20 MG PO Daily February 08, 2021 11:00pm July 01, 2023 8:09am One Touch Ultra Mini Glucometer 1 meter (4 sources) One Touch Ultra Mini Glucometer 1 meter as directed E11,9 as directed Active ozempic (1 mg/dose) 4 mg/3ml solution pen-injector (5 sources) inject 1 mg by subcutaneous injection every week Ozempic (1 MG/DOSE) 4 MG/3ML 1mg Subcutaneous once weekly for 28 days Active Ozempic, 1 MG/DOSE, 4 MG/3ML solution pen-injector (20 sources) Start: 12-10-2022 inject 1 mg by subcutaneous injection every week Ozempic, 1 MG/DOSE, 4 MG/3ML solution pen-injector Administer 1mg subcutaneously once weekly 12/10/2022 Active pen needle, diabetic (Sure-Fine Pen Webster) (20 sources) Start: 06-12-2023 pen needle, diabetic (Sure-Fine Pen Webster) Active .Route June 12, 2023 1:00am Start: 06-12-2023 pen needle, di abetic (Sure-Fine Pen Webster) Active .Route June 12, 2023 12:00am Start: 06-12-2023 pen needle, di abetic (Sure-Fine Pen Webster) Active .ROUTE June 12, 2023 12:00am pregabalin 300 mg oral capsule (20 sources) Start: 01-15-2024 take 1 capsule by mouth once daily Pregabalin 300 mg capsule Active 300 MG PO Daily January 14, 2024 11:00pm Start: 01-15-2024 Pregabalin Act abdifatah MG PO January 15, 2024 12:00am Start: 01-07-2024 take 1 capsule by [facility] twice daily pregabalin (Lyrica) 300 MG capsule Indications: Neurogenic pain TAKE 1 CAPSULE BY MOUTH TWICE A DAY 60 capsule 3 01/07/2024 Active Start: 11-18-2023 End: 01-15-2024 take 1 capsule by mouth twice daily Pregabalin (Lyrica) 150 mg capsule Discontinued 150 MG PO Twice daily November 17, 2023 11:00pm January 15, 2024 2:40pm semaglutide (Ozempic) 1 mg/dose (4 mg/3 mL) pen injector (4 sources) Start: 12-10-2022 inject 1 mg by subcutaneous injection every week semaglutide (Ozempic) 1 mg/dose (4 mg/3 mL) pen injector Administer 1mg subcutaneously once weekly 12/10/2022 Active Semaglutide (Ozempic) 2 mg/dose (8 mg/3 mL) pen injector (5 sources) Start: 04-28-2024 inject 2 mg by subcutaneous injection every week Semaglutide (Ozempic) 2 mg/dose (8 mg/3 mL) pen injector Active 2 MG SUBCUT every week April 28, 2024 12:00am simvastatin 20 mg oral tablet (20 sources) HMG-CoA Reductase Inhibitor Start: 04-30-2024 take 2 tablets by mouth once daily Simvastatin 20 mg Tablet Active 40 MG PO Daily April 30, 2024 10:26am Start: 02-09-2021 End: 10-06-2024 take 1 tablet by mouth once daily Simvastatin 20 mg Tablet Discontinued 20 MG PO Daily February 08, 2021 11:00pm April 30, 2024 10:27am varenicline 1 mg oral tablet (20 sources) [...] MCG tablet 11/14/2023 Active Start: 11-14-2023 take 1 capsule by mo [facility] once daily Cyanocobalamin (Vitamin B-12) 1,000 mcg capsule Active 1000 MCG PO Daily November 13, 2023 11:00pm Start: 02-09-2021 End: 12-17-2021 take 1 tablet by mouth once daily Cyanocobalamin (Vitamin B-12) (Vitamin B-12) 1,000 mcg Tablet Discontinued 1000 MCG PO Daily February 08, 2021 11:00pm December 17, 2021 4:58am RA Vitamin B-12 Not-Taking RA Vitamin B-12 Active Completed/Discontinued Medications Medication Drug Class(es) Dates Sig (Normalized) Sig (Original) acetaminophen 325 mg oral tablet (20 sources) Start: 12-13-2021 End: 12-17-2021 take 1-3 tablets by mouth every six hours as needed for pain Acetaminophen 325 mg Tablet Discontinued 650 MG PO Every 6 hours as needed for Pain Scale 1 - 3 or fever December 12, 2021 11:00pm December 17, 2021 4:59am Start: 12-13-2021 End: 12-17-2021 take 650 mg by mouth every six hours Acetaminophen Discontinued 650 MG PO Every 6 hours December 13, 2021 12:00am December 17, 2021 5:59am Admelog (9 sources) Admelog Not-Taki ng Admelog Active amiodarone hydrochloride 200 mg oral tablet (20 sources) Antiarrhythmic Start: 10-07-2023 End: 10-06-2024 take 1 tablet by mouth twice daily Amiodarone 200 mg tablet Discontinued 200 MG PO Twice daily November 03, 2023 11:00pm April 14, 2024 9:39am amoxicillin 875 mg / clavulanate 125 mg oral tablet (7 sources) Penicillin-class Antibacterial Start: 01-15-2024 End: 04-14-2024 Amoxicillin-Pot Clavulanate 875-125 mg tablet Discontinued TAB PO January 14, 2024 11:00pm April 14, 2024 9:39am dapagliflozin 10 mg oral tablet (4 sources) Sodium-Glucose Cotransporter 2 Inhibitor Start: 05-26-2020 take 1 tablet by mouth every twenty-four hours Farxiga 10 MG 1 tablet Orally Once a day for 30 day(s) Apr, Not-Taking doxycycline hyclate 100 mg oral capsule (10 sources) Tetracycline-class Drug Start: 02-06-2022 End: 01-07-2024 take 1 capsule by mouth once daily doxycycline (Vibramycin) 100 MG capsule take 1 capsule by mouth once daily for 10 days 02/06/2022 01/07/2024 Discontinued flash glucose sensor (FreeStyle Brent 14 Day Sensor) (20 sources) Start: 06-12-2023 End: 07-22-2023 flash glucose sensor (FreeStyle Brent 14 Day Sensor) Discontinued .Route June 12, 2023 12:00am July 22, 2023 6:32am Start: 06-12-2023 End: 11-09-2023 flash glucose sensor (FreeSt yle Brent 14 Day Sensor) Discontinued .Route June 12, 2023 12:00am November 09, 2023 9:09pm Start: 06-12-2023 End: 11-09-2023 flash glucose sensor (FreeSt yle Brent 14 Day Sensor) Discontinued .Route June 12, 2023 1:00am November 09, 2023 10:09pm Start: 06-12-2023 End: 07-22-2023 flash glucose sensor (FreeSt yle Brent 14 Day Sensor) Discontinued .Route June 12, 2023 1:00am July 22, 2023 7:32am Start: 06-12-2023 flash glucose sensor (FreeStyle Brent 14 Day Sensor) Active .Route June 12, 2023 1:00am Start: 06-12-2023 flash glucose sensor (FreeStyle Brent 14 Day Sensor) Active .Route June 12, 2023 12:00am Start: 06-12-2023 flash glucose sensor (FreeStyle Brent 14 Day Sensor) Active .ROUTE June 12, [...] 08, 2021 11:00pm October 10, 2022 11:17am Insulin Lispro 100 unit/mL Insulin Pen (5 sources) Start: 10-10-2022 End: 06-12-2023 inject 1 dose by subcutaneous injection at bedtime Insulin Lispro 100 unit/mL Insulin Pen Discontinued sliding scale dose SUBCUT Before meals and at bedtime October 09, 2022 11:00pm June 12, 2023 8:13am lisinopril 5 mg oral tablet (20 sources) Angiotensin Converting Enzyme Inhibitor Start: 09-09-2023 End: 11-05-2023 take 1 tablet by mouth once daily Lisinopril 5 mg tablet Discontinued 0 .ROUTE .COMPLEX 90 September 09, 2023 8:36am November 05, 2023 11:26am take 1 tablet by mouth once daily Start: 06-12-2023 End: 06-12-2023 take 2.5 mg by mouth once daily Lisinopril 10 mg table t Discontinued 2.5 MG PO Daily June 12, 2023 8:09am June 12, 2023 3:42pm Start: 06-12-2023 End: 06-12-2023 take 2.5 mg by mouth once daily Lisinopril Discontinue d 2.5 MG PO Daily June 12, 2023 9:09am June 12, 2023 4:42pm Start: 06-12-2023 End: 06-19-2023 take 1 tablet by mouth once daily Lisinopril 2.5 mg tablet Discontinued 2.5 MG PO Daily June 12, 2023 12:00am June 19, 2023 5:17pm Start: 12-04-2022 End: 04-28-2024 take 1 tablet by mouth once daily Lisinopril 5 mg tablet Discontinued 5 MG PO Daily September 08, 2023 11:00pm September 09, 2023 8:36am Start: 02-09-2021 End: 06-12-2023 take 5 mg by mouth once daily Lisinopril 10 mg Tablet Discontinued 5 MG PO Daily February 08, 2021 11:00pm June 12, 2023 8:13am Start: 02-09-2021 End: 06-12-2023 take 5 mg by mouth once daily Lisinopril Discontinued 5 MG PO Daily February 09, 2021 12:00am June 12, 2023 9:13am Start: 02-09-2021 take 10 mg by mouth once daily Lisinopril Active 10 MG PO Daily February 09, 2021 12:00am take 1 tablet by umer th every twenty-four hours Lisinopril 40 MG 1 tablet Orally Once a day Active loratadine 10 mg oral tablet (20 sources) Start: 02-09-2021 End: 10-10-2022 take 1 tablet by mouth once daily Loratadine 10 mg Tablet Discontinued 10 MG PO Daily February 08, 2021 11:00pm October 10, 2022 11:16am Loratadine PRN A ctive Loratadine prn A ctive Loratadine Activ e metoclopramide 10 mg oral tablet (20 sources) Dopamine-2 Receptor Antagonist Start: 06-12-2023 End: 06-19-2023 take 1 tablet by mouth once daily at bedtime Metoclopramide Hcl 10 mg tablet Discontinued 10 MG PO Daily at bedtime June 12, 2023 12:00am June 19, 2023 5:17pm Start: 02-09-2021 End: 10-10-2022 take 1 tablet by mouth once daily Metoclopramide Hcl 10 mg Tablet Discontinued 10 MG PO Daily February 08, 2021 11:00pm October 10, 2022 11:15am take 1 tablet by umer th at bedtime Metoclopramide HCl 10 MG 1 tablet Orally at bedtime Active 24 hr metoprolol succinate 50 mg extended release oral tablet (20 sources) beta-Adrenergic Debbie Start: 10-30-2023 End: 10-29-2024 take 1 tablet by mouth three times daily Metoprolol Succinate 50 mg Tablet Extended Release 24 Hr Discontinued 50 MG PO Three times daily November 03, 2023 11:00pm April 14, 2024 9:40am Start: 09-14-2023 End: 10-23-2024 take 1 tablet by mouth every twenty-four hours in the morning metoprolol succinate XL (Toprol-XL) 50 MG 24 hr tablet Take 50 mg by mouth in the morning and 50 mg in the evening. 09/14/2023 04/07/2024 Discontinued Start: 09-14-2023 End: 11-04-2023 take 1 tablet by mouth once daily Metoprolol Succinate 50 mg Tablet Extended Release 24 Hr Discontinued 50 MG PO Daily September 13, 2023 11:00pm November 04, 2023 12:04pm Miscellaneous Medical Supply misc (20 sources) Start: 11-26-2023 End: 04-28-2024 Miscellaneous Medical Supply misc Discontinued 0 .Route 1 November 26, 2023 1:24pm April 28, 2024 11:40am Hospital Bed Start: 11-26-2023 End: 11-26-2023 Miscellaneous Medical Supply misc Discontinued 0 .Route 1 November 26, 2023 1:22pm November 26, 2023 1:25pm As directed Start: 2023 End: 11-26-2023 Miscellaneous Medical Supply misc Discontinued 0 .Route 1 2023 1:20pm November 26, 2023 1:23pm As directed Start: 09-30-2023 End: 2023 Miscellaneous Medical Supply misc Discontinued 0 .Route 1 September 30, 2023 7:33am 2023 1:21pm As directed Start: 09-17-2023 End: 09-30-2023 Miscellaneous Medical Supply misc Discontinued 0 .Route 1 September 16, 2023 11:00pm September 30, 2023 7:33am As directed Multivitamin Tablet (5 sources) Start: 02-09-2021 End: 06-12-2023 take 1 tablet by mouth twice daily Multivitamin Tablet Discontinued 1 TAB PO Twice daily February 08, 2021 11:00pm June 12, 2023 8:13am pioglitazone 15 mg oral tablet (20 sources) Peroxisome Proliferator Receptor alpha Agonist, Peroxisome Proliferator Receptor gamma Agonist, Thiazolidinedione Start: 02-09-2021 End: 04-28-2024 take 1 tablet by mouth once daily Pioglitazone 15 mg Tablet Discontinued 15 MG PO Daily February 08, 2021 11:00pm April 28, 2024 12:57pm 0.25 mg, 0.5 mg dose 1.5 ml semaglutide 1.34 mg/ml pen injector (20 sources) Start: 02-09-2021 End: 04-28-2024 Semaglutide (Ozempic) 0.25 mg or 0.5 mg(2 mg/1.5 mL) Pen Injector Discontinued 1 MG SUBCUT every week February 08, 2021 11:00pm April 28, 2024 11:39am Saturday Start: 02-09-2021 Semaglutide (O zempic) 0.25 mg or 0.5 mg(2 mg/1.5 mL) Pen Injector Active 0.5 MG SUBCUT every week February 09, 2021 12:00am Saturday Ozempic (0.25 or 0.5 MG/DOSE) 2 MG/1.5ML inject 0.5 milligrams subcutaneously every week for 84 Active Semaglutide (5 sources) Start: 04-28-2024 End: 04-28-2024 inject 1 mg by subcutaneous injection every week Semaglutide (Ozempic) 1 mg/dose (4 mg/3 mL) pen injector Discontinued 1 MG SUBCUT every week April 28, 2024 12:00am April 28, 2024 12:57pm temazepam 30 mg oral capsule (20 sources) Benzodiazepine Start: 10-10-2022 End: 04-30-2024 take 1 capsule by mouth once daily Temazepam 30 mg capsule Discontinued 30 MG PO Daily September 17, 2023 12:56pm November 08, 2023 3:43pm Start: 08-09-2022 take 1 capsule by mo uth every [...] Apr, Active Start: 02-09-2021 End: 12-17-2021 take 1 capsule by mouth once daily at bedtime Temazepam 30 mg Capsule Discontinued 30 MG PO Daily at bedtime February 08, 2021 11:00pm December 17, 2021 5:00am take 1 capsule by mo uth every twenty-four hours Temazepam 15 MG 1 capsule at bedtime as needed Orally Once a day Active Vitamin B12 1000 MCG (4 sources) [...] (mild)] 06-12-2023 Chronic Chronic ulcer of skin (15 sources) Non-pressure chronic ulcer of other part of right foot limited to breakdown of skin; 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: [Ulcer of other part of foot] Onset: 01-07-2024 01-28-2024 Chronic Conditions associated with dizziness or vertigo (20 sources) Dizziness; 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: [Dizziness and giddiness] Onset: 04-27-2024 06-19-2023 Episodic Coronary atherosclerosis and other heart [...] Onset: 06-12-2023 06-12-2023 Chronic Digestive congenital anomalies (20 sources) Enlargement of tongue; 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: [Macroglossia] Onset: 10-29-2023 10-29-2023 Chronic Diseases of white blood cells (20 sources) Granulocytosis; 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: [Other elevated white blood cell count] Onset: 04-07-2024 04-07-2024 Chronic Disorders of lipid metabolism (20 sources) Hyperlipidemia; 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: [Hyperlipidemia, unspecified] Onset: 03-27-2021 Resolved: 01-09-2022 Chronic Esophageal disorders (18 sources) Stricture of esophagus; 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: [Esophageal obstruction] Chronic Esophageal disorders (20 sources) Achalasia of esophagus; 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: [Achalasia of cardia] 02-09-2021 Episodic Esophageal disorders (1 source) Esophageal disorders Onset: 05-16-2017 Essential hypertension (20 sources) Hypertensive disorder; 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: [Essential (primary) hypertension] Onset: 03-27-2021 Resolved: 01-09-2022 Chronic Essential hypertension (1 source) Essential hypertension Onset: 05-16-2017 Malaise and fatigue (20 sources) Fatigue; 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: [Chronic fatigue, unspecified] Chronic Malaise and fatigue (20 sources) Asthenia; 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: [Weakness] Onset: 04-28-2024 11-10-2023 Episodic Miscellaneous mental health disorders (20 sources) Primary insomnia; 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: [Primary insomnia] Chronic Nonspecific chest pain (20 sources) Chest pain; 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: [Chest pain, unspecified] 09-12-2023 Episodic Nutritional deficiencies (20 sources) Vitamin D deficiency; 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: [Vitamin D deficiency, unspecified] Chronic Open wounds of extremities (5 sources) Injury of foot; 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: [Unspecified open wound, unspecified foot, initial encounter] 02-03-2024 Episodic Other aftercare (20 sources) Long-term current use of insulin; 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: [[employer] (current) use of insulin] 06-12-2023 Episodic Other aftercare (19 sources) Post-discharge follow-up; 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: [Encounter for follow-up examination after completed treatment for conditions other than malignant neoplasm] 09-24-2023 Episodic Other aftercare (17 sources) Encounter for follow-up examination after completed treatment for conditions other than malignant neoplasm; 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: [Other follow-up examination] 09-17-2023 Episodic Other circulatory disease (3 sources) Hypotension, unspecified; 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: [Hypotension, unspecified] Onset: 09-25-2023 Episodic Other circulatory disease (1 source) Low blood pressure; 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: [Hypotension, unspecified] 05-07-2024 Episodic Other gastrointestinal disorders (20 sources) Dysphagia; 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: [Dysphagia, unspecified] 06-18-2023 Episodic Other gastrointestinal disorders (15 sources) Stricture of esophagus; 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: [Personal history of other diseases of the digestive system] Episodic Other gastrointestinal disorders (1 source) Dysphagia, unspecified Episodic Other gastrointestinal disorders (1 source) Incontinence of feces; 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: [Full incontinence of feces] 05-07-2024 Episodic Other gastrointestinal disorders (1 source) Full incontinence of feces; 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: [Full incontinence of feces] 05-07-2024 Episodic Other hematologic conditions (5 sources) Secondary polycythemia; 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] 04-28-2024 Episodic Other hematologic conditions (8 sources) Secondary polycythemia; 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, secondary] Onset: 04-28-2024 04-14-2024 Episodic Other injuries and conditions due to external causes (9 sources) Unspecified injury of left foot, initial encounter; 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: [Injury of foot, left] Episodic Other nervous system disorders (20 sources) Peripheral nerve disease ; 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: [Polyneuropathy, unspecified] 06-12-2023 Chronic Other nervous system disorders (20 sources) Polyneuropathy, unspecified; 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: [Unspecified hereditary and idiopathic peripheral neuropathy] Onset: 03-27-2021 Resolved: 01-09-2022 Chronic Other nervous system disorders (17 sources) Walking disability; 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: [Difficulty in walking, not elsewhere classified] 11-10-2023 Chronic Other nervous system disorders (13 sources) Difficulty in walking, not elsewhere classified; 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: [Difficulty in walking] Onset: 11-10-2023 11-10-2023 Chronic Other nervous system disorders (20 sources) Bilateral carpal tunnel syndrome; 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: [Carpal tunnel syndrome, bilateral upper limbs] Onset: 10-29-2023 10-29-2023 Chronic Other nervous system disorders (20 sources) Polyneuropathy; 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: [Polyneuropathy, unspecified] Onset: 10-29-2023 10-29-2023 Chronic Other nervous system disorders (20 sources) Ulnar nerve entrapment at wrist; 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: [Lesion of ulnar nerve, unspecified upper limb] Onset: 12-13-2023 12-13-2023 Chronic Other nervous system disorders (15 sources) Impaired cognition; 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: [Other symptoms and signs involving cognitive functions and awareness] Onset: 02-25-2024 02-25-2024 Episodic Other nutritional; endocrine; and metabolic disorders (20 sources) Obese class I; 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: [Body mass index (BMI) 33.0-33.9, adult] Chronic Other nutritional; endocrine; and metabolic disorders (20 sources) Body mass index 30+ - obesity; 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: [Body mass index (BMI) 32.0-32.9, adult] Onset: 12-16-2023 06-18-2023 Chronic Other nutritional; endocrine; and metabolic [...] Chronic Other nutritional; endocrine; and metabolic disorders (17 sources) Hypomagnesemia; 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: [Hypomagnesemia] 11-10-2023 Chronic Other nutritional; endocrine; and metabolic disorders (20 sources) Hypomagnesemia; 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: [Disorders of magnesium metabolism] Onset: 04-28-2024 11-10-2023 Chronic Other nutritional; endocrine; and metabolic disorders (5 sources) Body mass index (BMI) 32.0-32.9, adult; 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: [Body Mass Index 32.0-32.9, adult] 04-28-2024 Chronic Other nutritional; endocrine; and metabolic disorders (1 source) Body mass index (BMI) 29.0-29.9, adult Episodic Other nutritional; endocrine; and metabolic disorders (20 sources) Overweight in adulthood with body mass index of 25 or more but less than 30; 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: [Body mass index (BMI) 28.0-28.9, adult] Onset: 10-07-2023 Resolved: 12-16-2023 06-12-2023 Episodic Ailyn-; endo-; and myocarditis; cardiomyopathy (except [...] (20 sources) Insomnia; 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: [Insomnia, unspecified] Episodic Residual codes; unclassified (1 source) Asymptomatic menopausal state Episodic Residual codes; unclassified (1 source) Sleep disorder; 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: [Sleep disorder, unspecified] 05-07-2024 Episodic Residual codes; unclassified (1 source) Sleep disorder, unspecified; 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: [Sleep disturbance, unspecified] 05-07-2024 Episodic Substance-related disorders (20 sources) Smoker; 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: [Nicotine dependence, unspecified, uncomplicated] Onset: 09-17-2023 Chronic Superficial injury; contusion (6 sources) Blister of foot; 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: [Blister (nonthermal), right foot, subsequent encounter] 01-28-2024 Episodic Thyroid disorders (20 sources) Hypothyroidism; 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: [Hypothyroidism, unspecified] Onset: 04-28-2024 11-10-2023 Chronic Transient cerebral ischemia (13 sources) Transient cerebral ischemia; 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: [Transient cerebral ischemic attack, unspecified] Onset: 04-28-2024 04-28-2024 Chronic Unclassified (3 sources) Dermatochalasis of left upper eyelid / H02.834(ICD-10) Onset: 05-16-2017 Unclassified (1 source) Dermatochalasis of right upper eyelid / H02.831(ICD-10) Onset: 05-16-2017 Unclassified (1 source) Unspecified ptosis of bilateral eyelids / H02.403(ICD-10) Onset: 05-16-2017 Unclassified (1 source) Nicotine dependence, unspecified, uncomplicated / F17.200(ICD-10) Onset: 05-16-2017 Unclassified (1 source) prison (current) use of aspirin / Z79.82(ICD-10) Onset: 05-16-2017 Unclassified (1 source) [employer] (current) use of oral hypoglycemic drugs / Z79.84(ICD-10) Onset: 05-16-2017 Unclassified (2 sources) EKG Visit Onset: 12-02-2023 Urinary tract infections (20 sources) Emphysematous cystitis; 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: [Other cystitis without hematuria] 12-09-2021 Episodic Past or Other Problems Problem Classification Problem Date Documented Date Episodic/Chronic E Codes: Adverse effects of medical drugs (20 sources) Alpha-tocopheryl adverse reaction; 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: [Adverse effect of vitamins, initial encounter] Onset: 11-29-2023 11-29-2023 Episodic Genitourinary symptoms and ill-defined conditions (2 sources) Proteinuria, unspecified Onset: 03-27-2021 Resolved: 07-10-2021 Episodic Immunizations and screening for infectious disease (20 sources) Anti-nuclear factor positive; 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: [Other specified abnormal immunological findings in serum] Onset: 11-29-2023 11-29-2023 Episodic Nutritional deficiencies (20 sources) Deficiency of other specified B group vitamins; 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: [Cobalamin deficiency] Onset: 03-27-2021 Resolved: 01-09-2022 Episodic Other aftercare (13 sources) [employer] (current) use of insulin; 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: [Long-term (current) use of insulin] Onset: 03-27-2021 Resolved: 01-09-2022 Episodic Other aftercare (5 sources) Taking high risk medication; 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: [Other [employer] (current) drug therapy] Onset: 11-13-2023 11-13-2023 Episodic Other aftercare (2 sources) Other penitentiary (current) drug therapy; 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: [Other [employer] (current) drug therapy] Onset: 11-13-2023 Episodic Other aftercare (1 source) Encounter for therapeutic drug level monitoring; 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: [Encounter for therapeutic drug level monitoring] Onset: 12-02-2023 Episodic Other connective tissue disease (1 source) Pain in right leg Onset: 04-03-2021 Resolved: 04-03-2021 Episodic Other connective tissue disease (1 source) Pain in left leg Onset: 04-03-2021 Resolved: 04-03-2021 Episodic Other connective tissue disease (20 sources) Spasm of cervical paraspinous muscle; 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: [Other muscle spasm] Onset: 10-29-2023 10-29-2023 Episodic Other connective tissue disease (20 sources) Neurogenic pain; 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: [Neuralgia and neuritis, unspecified] Onset: 10-29-2023 10-29-2023 Episodic Other connective tissue disease (20 sources) Muscle atrophy; 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: [Muscle wasting and atrophy, not elsewhere classified, multiple sites] Onset: 10-29-2023 10-29-2023 Episodic Other connective tissue disease (20 sources) Pain in bilateral legs; 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: [Pain in right leg] Onset: 10-29-2023 10-29-2023 Episodic Other connective tissue disease (1 source) Pain in right foot; 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: [Pain in right foot] Onset: 01-06-2024 Episodic Other nutritional; endocrine; and metabolic disorders (20 sources) Body mass index (BMI) 28.0-28.9, adult; 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: [Body Mass Index 28.0-28.9, adult] Onset: 01-09-2022 Resolved: 01-09-2022 Episodic Other screening for suspected conditions (not mental disorders or infectious disease) (20 sources) Thyroid function tests abnormal; 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: [Other specified abnormal findings of blood chemistry] Onset: 07-25-2023 11-14-2023 Episodic Other skin disorders (1 source) Corns and callosities Onset: 07-10-2021 Resolved: 07-10-2021 Episodic Residual codes; unclassified (20 sources) Obstructive sleep apnea syndrome; 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: [Obstructive sleep apnea (adult) (pediatric)] Onset: 10-29-2023 Resolved: 10-29-2023 10-29-2023 Chronic Residual codes; unclassified (1 source) Insomnia, unspecified Onset: 05-08-2021 Resolved: 05-08-2021 Episodic Skin and subcutaneous tissue infections (3 sources) Cellulitis of right foot; 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: [Cellulitis of right lower limb] Onset: 01-07-2024 01-07-2024 Episodic Spondylosis; intervertebral disc disorders; other back problems (20 sources) Spasm of muscle of lower back; 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: [Muscle spasm of back] Onset: 10-29-2023 10-29-2023 Episodic Unclassified (1 source) Dermatochalasis of left upper eyelid; 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: [Dermatochalasis of left upper eyelid] Onset: 05-16-2017 Unclassified (4 sources) Onset: 10-07-2023 Resolved: 12-16-2023 10-07-2023 Results Test Name Value Interpretation Reference Range Facility MR head/brain wo/w conon MR head/brain wo/w con Normal [facility] Magnetic resonance imaging r eportOrdered By: Eugenio Lazo on 05-25-2024 Study report [facility] [place] [address] MRI Report Signed Patient: Taye Gay MR#: [id number] : 1955 Acct:[id number] Age/Sex: 68 / F ADM Date: 5 Loc: MR Room: Type: [facility] Attending Dr: Sandra Keita DO Copies to: Sandra Keita DO~ Ordering Provider: Sandra Keita DO Date of Service: 05/25/24 MR/MR head/brain wo/w con: r/o stroke, period of slurred speech and AMS MRI the Brain with and without contrast TECHNIQUE: Multiplanar T1 and T2-weighted imaging of the brain. 19 cc of ProHance HISTORY: History of TIA. Slurred speech. Headache. COMPARISON: 11/11/2023 VENTRICLES: Unremarkable BRAIN VOLUME: Generalized atrophy identified. BRAIN PARENCHYMAL SIGNAL INTENSITY: Scattered foci of increased T2/FLAIR signal intensity of the brain parenchyma is consistent with chronic small vessel ischemic changes. BLEED: None MASS EFFECT: No mass effect DIFFUSION RESTRICTION: None GRADIENT ECHO PARENCHYMAL SIGNAL LOSS: None MIDBRAIN: The midbrain structures are unremarkable. FLOYD: Unremarkable MEDULLA: Unremarkable INTERNAL AUDITORY CANALS: Unremarkable SINUSES: Unremarkable ORBITS: Grossly unremarkable MASTOIDS: Unremarkable ENHANCEMENT: No contrast enhancement given MR/MR head/brain wo/w con IMPRESSION: No acute intracranial process. Impression dictated by: Eugenio Lazo M.D.05/25/2024 7:59 PM Dictation Location: [place] [address] Transcribed By: [facility] 05/25/241958 Dictated By: Eugenio Lazo DO 05/25/241953 Signed By: 05/25/241958 [facility] Alanine aminotransferase [En zymatic activity/volume] in Serum or PlasmaOrdered By: Priscilla Lang on 04-30-2024 ALT [Catalytic activity/Vol] Alanine aminotransferase [Enzymatic activity/volume] in Serum or Plasma [facility] Albumin [Mass/volume] in Ser um or Plasma by Bromocresol green (BCG) dye binding methoOrdered By: Priscilla Lang on 04-30-2024 Albumin BCG dye [Mass/Vol] Albumin [Mass/volume] in Serum or Plasma by Bromocresol green (BCG) dye binding metho 3.5-5.7 [facility] Alkaline phosphatase [Enzyma tic activity/volume] in Serum or PlasmaOrdered By: Priscilla Lang on 04-30-2024 ALP [Catalytic activity/Vol] Alkaline phosphatase [Enzymatic activity/volume] in Serum or Plasma 34-104 [facility] Aspartate aminotransferase [ Enzymatic activity/volume] in Serum or PlasmaOrdered By: Priscilla Lang on 04-30-2024 AST [Catalytic activity/Vol] Aspartate aminotransferase [Enzymatic activity/volume] in Serum or Plasma 13-39 [facility] Basophils Auto (Bld) [#/Vol] Ordered By: Priscilla Lang on 04-30-2024 Basophils (Bld) [#/Vol] Automated basophil count 0.0-0.2 [facility] Basophils/100 WBC Auto (Bld) Ordered By: Priscilla Lang on 04-30-2024 Basophils/100 WBC (Bld) Automated basophil % . [facility] Bilirubin.total [Mass/volume ] in Serum or PlasmaOrdered By: Priscilla Lang on 04-30-2024 Bilirubin [Mass/Vol] Bilirubin.total [Mass/volume] in Serum or Plasma 0.3-1.0 [facility] Calcium [Mass/volume] in Ser um or PlasmaOrdered By: Priscilla Lang on 04-30-2024 Calcium [Mass/Vol] Calcium [Mass/volume ] in Serum or Plasma 8.6-10.3 [facility] Carbon dioxide, total [Moles /volume] in Serum or PlasmaOrdered By: Priscilla Lang on 04-30-2024 CO2 [Moles/Vol] Carbon dioxide, tota l [Moles/volume] in Serum or Plasma 21.0-31.0 [facility] Chloride [Moles/volume] in S elliot or PlasmaOrdered By: Priscilla Lang on 04-30-2024 Chloride [Moles/Vol] Chloride [Moles/vol ume] in Serum or Plasma 98-107 [facility] Complete Blood Count Auto Di ffon 04-30-2024 Basophils (Bld) [#/Vol] 0.0 10*3/uL Normal 0.0-0.2 [facility] Comment on above: Result Comment: PERF ORMED BY:[address] [place] [id number] MEDICAL DIRECTORLE MACE M.D. Performed By: #### C MP, CBC, MG, PHOS ####[address] Basophils/100 WBC (Bld) 0.4 % Normal . T [facility] Comment on above: Performed By: #### C MP, CBC, MG, PHOS ####[address] Eosinophils (Bld) [#/Vol] 0.2 10*3/uL Normal 0.0-0.45 [facility] Comment on above: Performed By: #### C MP, CBC, MG, PHOS ####[address] Eosinophils/100 WBC (Bld) 2.9 % Normal . [facility] Comment on above: Performed By: #### C MP, CBC, MG, PHOS ####[address] Erythrocyte distribution width (RBC) [Ratio] 15.4 % High 11.9-15.3 [facility] Comment on above: Performed By: #### C MP, CBC, MG, PHOS ####[address] Hematocrit (Bld) [Volume fraction] 44.3 % Normal 34.0-46.4 [facility] Comment on above: Performed By: #### C MP, CBC, MG, PHOS ####[address] Hemoglobin (Bld) [Mass/Vol] 14.7 g/dL Normal 11.8-15.4 [facility] Comment on above: Performed By: #### C MP, CBC, MG, PHOS ####[address] Lymphocytes (Bld) [#/Vol] 1.8 10*3/uL Normal 1.00-4.8 [facility] Comment on above: Performed By: #### C MP, CBC, MG, PHOS ####[address] Lymphocytes/100 WBC (Bld) 24.9 % Normal . [facility] Comment on above: Performed By: #### C MP, CBC, MG, PHOS ####[address] MCH (RBC) [Entitic mass] 31.4 pg Normal 24.7-34.3 [facility] Comment on above: Performed By: #### C MP, CBC, MG, PHOS ####[address] MCV (RBC) [Entitic vol] 94.4 fL Normal 80-100 [facility] Comment on above: Performed By: #### C MP, CBC, MG, PHOS ####[address] Mean Corpuscular HGB Conc 33.3 g/dL Normal 32.0-35.0 [facility] Comment on above: Performed By: #### C MP, CBC, MG, PHOS ####[address] Monocytes (Bld) [#/Vol] 0.6 10*3/uL Normal 0.0-0.8 [facility] Comment on above: Performed By: #### C MP, CBC, MG, PHOS ####[address] Monocytes/100 WBC (Bld) 8.3 % Normal . [facility] Comment on above: Performed By: #### C MP, CBC, MG, PHOS ####[address] Neutrophils (Bld) [#/Vol] 4.6 10*3/uL Normal 1.8-7.7 [facility] Comment on above: Performed By: #### C MP, CBC, MG, PHOS ####[address] Neutrophils/100 WBC (Bld) 63.5 % Normal . [facility] Comment on above: Performed By: #### C MP, CBC, MG, PHOS ####[address] NRBC% 0.0 /100{WBC} Normal 0-0.5 [facility] Comment on above: Performed By: #### C MP, CBC, MG, PHOS ####[address] Platelet mean volume (Bld) [Entitic vol] 9.5 fL Normal 6.3-10.7 [facility] Comment on above: Performed By: #### C MP, CBC, MG, PHOS ####[address] Platelets (Bld) [#/Vol] 119 10*3/uL Low 150-450 [facility] Comment on above: Performed By: #### C MP, CBC, MG, PHOS ####[address] RBC (Bld) [#/Vol] 4.70 10*6/uL Normal 3.60-5.00 [facility] Comment on above: Performed By: #### C MP, CBC, MG, PHOS ####[address] WBC (Bld) [#/Vol] 7.3 10*3/uL Normal 3.8-11.6 [facility] Comment on above: Performed By: #### C MP, CBC, MG, PHOS ####[address] Comprehensive Metabolic Pane juan 04-30-2024 Albumin [Mass/Vol] 3.5 g/dL Normal 3.5-5.7 [facility] Comment on above: Performed By: #### C MP, CBC, MG, PHOS ####[address] Albumin/Globulin [Mass ratio] 1.2 {ratio} Normal [facility] Comment on above: Performed By: #### C MP, CBC, MG, PHOS ####[address] ALP [Catalytic activity/Vol] 85 U/L Normal 34-104 [facility] Comment on above: Performed By: #### C MP, CBC, MG, PHOS ####[address] ALT [Catalytic activity/Vol] 16 U/L Normal 7-52 [facility] Comment on above: Performed By: #### C MP, CBC, MG, PHOS ####[address] Anion gap [Moles/Vol] 10.9 mmol/L Normal 6.0-15.0 [facility] Comment on above: Performed By: #### C MP, CBC, MG, PHOS ####[address] AST [Catalytic activity/Vol] 23 U/L Normal 13-39 [facility] Comment on above: Performed By: #### C MP, CBC, MG, PHOS ####[address] Bilirubin [Mass/Vol] 0.5 mg/dL Normal 0.3-1.0 [facility] Comment on above: Performed By: #### C MP, CBC, MG, PHOS ####[address] Calcium [Mass/Vol] 9.3 mg/dL Normal 8.6-10.3 [facility] Comment on above: Performed By: #### C MP, CBC, MG, PHOS ####[place] [id number] [address] Chloride [Moles/Vol] 106 mmol/L Normal 98-107 [facility] Comment on above: Performed By: #### C MP, CBC, MG, PHOS ####[address] CO2 [Moles/Vol] 26.9 mmol/L Normal 21.0-31.0 [facility] Comment on above: Performed By: #### C MP, CBC, MG, PHOS ####[address] Creatinine [Mass/Vol] 0.80 mg/dL Normal 0.60-1.20 [facility] Comment on above: Performed By: #### C MP, CBC, MG, PHOS ####[address] Creatinine Clr Calc Pharmacy 82.38 Normal [facility] Comment on above: Performed By: #### C MP, CBC, MG, PHOS ####[address] GFR/1.73 sq M.predicted MDRD (S/P/Bld) [Vol rate/Area] mL/min/{1.73_m2} Normal [facility] Comment on above: Performed By: #### C MP, CBC, MG, PHOS ####[address] Globulin (S) [Mass/Vol] 2.9 g/dL Normal T [facility] Comment on above: Performed By: #### C MP, CBC, MG, PHOS ####[address] Glucose [Mass/Vol] 130 mg/dL High 70-100 [facility] Comment on above: Result Comment: [employer] Glucose Reference Range is dependent on time and content of last meal. Glucose of more than 200 mg/dL in a nonstressed, ambulatory subject supports the diagnosis of Diabetes Mellitus. ADA recommended reference range Performed By: #### C MP, CBC, MG, PHOS ####[place] [id number] [address] Potassium [Moles/Vol] 3.8 mmol/L Normal 3.5-5.1 [facility] Comment on above: Performed By: #### C MP, CBC, MG, PHOS ####[address] Protein [Mass/Vol] 6.4 g/dL Normal 6.4-8.9 [facility] Comment on above: Performed By: #### C MP, CBC, MG, PHOS ####[address] Sodium [Moles/Vol] 140 mmol/L Normal 136-145 [facility] Comment on above: Performed By: #### C MP, CBC, MG, PHOS ####[address] Urea nitrogen [Mass/Vol] 9 mg/dL Normal 7-25 [facility] Comment on above: Performed By: #### C MP, CBC, MG, PHOS ####[address] Creatinine [Mass/volume] in Serum or PlasmaOrdered By: Priscilla Lang on 04-30-2024 Creatinine [Mass/Vol] Creatinine [Mass/v olume] in Serum or Plasma 0.60-1.20 [facility] Eosinophils Auto (Bld) [#/Vo l]Ordered By: Priscilla Lang on 04-30-2024 Eosinophils (Bld) [#/Vol] Automated eosinophil count 0.0-0.45 [facility] Eosinophils/100 WBC Auto (Bl d)Ordered By: Priscilla Lang on 04-30-2024 Eosinophils/100 WBC (Bld) Automated eosinophil % . [facility] Erythrocyte distribution wid th Auto (RBC) [Ratio]Ordered By: Priscilla Lang on 04-30-2024 Erythrocyte distribution width (RBC) [Ratio] Erythrocyte distribution width [Ratio] by Automated count High 11.9-15.3 [facility] Globulin Calc (S) [Mass/Vol] Ordered By: Priscilla Lang on 04-30-2024 Globulin (S) [Mass/Vol] Serum globulin measurement by calculation (mass/volume) [facility] Glucose Glucometer (BldC) [M ass/Vol]Ordered By: Priscilla Lang on 04-30-2024 Glucose [Mass/Vol] Capillary blood gluc ose measurement by glucometer (mass/volume) [facility] Comment on above: Random Glucose Refer ence Range is dependent on time and content of last meal. Glucose of more than 200 mg/dL in a nonstressed, ambulatory subject supports the diagnosis of Diabetes Mellitus. Glucose Poct Glucometerson 0 04-30-2024 Glucose [Mass/Vol] 154 mg/dL Normal [facility] Comment on above: Result Comment: [employer] om Glucose Reference Range is dependent on time and content of last meal. Glucose of more than 200 mg/dL in a nonstressed, ambulatory subject supports the diagnosis of Diabetes Mellitus.PERFORMED BY:[place] [address] [place] [place], [place] [phone] MEDICAL DIRECTORLE MACE M.D. Performed By: #### G LULS ####Point of Care testing, Glucose [Mass/Vol] 134 mg/dL Normal [facility] Comment on above: Result Comment: [employer] om Glucose Reference Range is dependent on time and content of last meal. Glucose of more than 200 mg/dL in a nonstressed, ambulatory subject supports the diagnosis of Diabetes Mellitus.PERFORMED BY:[place] [address] [place], [place] [phone] MEDICAL DIRECTORLE MACE M.D. Performed By: #### G LULS ####Point of Care testing, Glucose [Mass/volume] in Ser um or PlasmaOrdered By: Priscilla Lang on 04-30-2024 Glucose [Mass/Vol] Glucose [Mass/volume ] in Serum or Plasma High 70-100 [facility] Comment on above: ADA recommended refe rence rangeRandom Glucose Reference Range is dependent on time and content of last meal. Glucose of more than 200 mg/dL in a nonstressed, ambulatory subject supports the diagnosis of Diabetes Mellitus. Hematocrit Auto (Bld) [Volum e fraction]Ordered By: Priscilla Lang on 04-30-2024 Hematocrit (Bld) [Volume fraction] Hematocrit [Volume Fraction] of Blood by Automated count 34.0-46.4 [facility] Hemoglobin [Mass/volume] in BloodOrdered By: Priscilla Lang on 04-30-2024 Hemoglobin (Bld) [Mass/Vol] Hemoglobin [Mass/volume] in Blood 11.8-15.4 [facility] Leukocytes [#/volume] correc deepika for nucleated erythrocytes in Blood by Automated counOrdered By: Priscilla Lang on 04-30-2024 WBC corrected for nucl RBC Auto (Bld) [#/Vol] Leukocytes [#/volume] corrected for nucleated erythrocytes in Blood by Automated coun 3.8-11.6 [facility] Lymphocytes Auto (Bld) [#/Vo l]Ordered By: Priscilla Lang on 04-30-2024 Lymphocytes (Bld) [#/Vol] Lymphocytes [#/volume] in Blood by Automated count 1.00-4.8 [facility] Lymphocytes/100 WBC Auto (Bl d)Ordered By: Priscilla Lang on 04-30-2024 Lymphocytes/100 WBC (Bld) Lymphocytes/100 leukocytes in Blood by Automated count . [facility] MCH Auto (RBC) [Entitic mass ]Ordered By: Priscilla Lang on 04-30-2024 MCH (RBC) [Entitic mass] MCH [Entitic mass] by Automated count 24.7-34.3 [facility] MCHC Auto (RBC) [Mass/Vol]Or dered By: Priscilla Lang on 04-30-2024 MCHC (RBC) [Mass/Vol] MCHC [Mass/volume] by Automated count 32.0-35.0 [facility] MCV Auto (RBC) [Entitic vol] Ordered By: Priscilla Lang on 04-30-2024 MCV (RBC) [Entitic vol] MCV [Entitic vol ume] by Automated count 80-100 [facility] Magnesiumon 04-30-2024 Magnesium [Mass/Vol] 1.7 mg/dL Low 1.9-2.7 [facility] Comment on above: Result Comment: PERF ORMED BY:[facility] [place], [place] [phone] MEDICAL DIRECTORLE MACE M.D. Performed By: #### C MP, CBC, MG, PHOS ####[facility] [place] [address] [facility] Magnesium [Mass/volume] in S elliot or PlasmaOrdered By: Priscilla Lang on 04-30-2024 Magnesium [Mass/Vol] Magnesium [Mass/vol ume] in Serum or Plasma Low 1.9-2.7 [facility] Monocytes Auto (Bld) [#/Vol] Ordered By: Priscilla Lang on 04-30-2024 Monocytes (Bld) [#/Vol] Automated blood monocyte count 0.0-0.8 [facility] Monocytes/100 WBC Auto (Bld) Ordered By: Priscilla Lang on 04-30-2024 Monocytes/100 WBC (Bld) Automated monocyte % . [facility] Neutrophils Auto (Bld) [#/Vo l]Ordered By: Priscilla Lang on 04-30-2024 Neutrophils (Bld) [#/Vol] Neutrophils [#/volume] in Blood by Automated count 1.8-7.7 [facility] Neutrophils/100 WBC Auto (Bl d)Ordered By: Priscilla Lang on 04-30-2024 Neutrophils/100 WBC (Bld) Automated neutrophil % . [facility] No Panel InformationOrdered By: Priscilla Lang on 04-30-2024 Estimated GFR (CKD-EPI) > 60.0 mL/Min [facility] Creatinine Clearance (Chem 82.38 [facility] Nucleated erythrocytes [Pres ence] in Blood by Automated countOrdered By: Priscilla Lang on 04-30-2024 Nucleated RBC Auto Ql (Bld) Nucleated erythrocytes [Presence] in Blood by Automated count 0-0.5 [facility] Phosphate [Mass/volume] in S elliot or PlasmaOrdered By: Priscilla Lang on 01-02-2025 Phosphate [Mass/Vol] Phosphate [Mass/vol ume] in Serum or Plasma 2.5-4.5 [facility] Phosphoruson 04-30-2024 Phosphate [Mass/Vol] 2.9 mg/dL Normal 2.5-4.5 [facility] Comment on above: Performed By: #### C MP, CBC, MG, PHOS ####[facility] [id number] [place] [id number] [facility] Platelet mean volume Auto (B ld) [Entitic vol]Ordered By: Priscilla Lang on 04-30-2024 Platelet mean volume (Bld) [Entitic vol] Platelet mean volume [Entitic volume] in Blood by Automated count 6.3-10.7 [facility] Platelets Auto (Bld) [#/Vol] Ordered By: Priscilla Lang on 04-30-2024 Platelets (Bld) [#/Vol] Platelets [#/vol ume] in Blood by Automated count Low 150-450 [facility] Potassium [Moles/volume] in Serum or PlasmaOrdered By: Priscilla Lang on 04-30-2024 Potassium [Moles/Vol] Potassium [Moles/v olume] in Serum or Plasma 3.5-5.1 [facility] Protein [Mass/volume] in Ser um or PlasmaOrdered By: Priscilla Lang on 04-30-2024 Protein [Mass/Vol] Protein [Mass/volume ] in Serum or Plasma 6.4-8.9 [facility] RBC Auto (Bld) [#/Vol]Ordere d By: Priscilla Lang on 04-30-2024 RBC (Bld) [#/Vol] Erythrocytes [#/volu me] in Blood by Automated count 3.60-5.00 [facility] Serum or plasma albumin/glob ulin mass ratioOrdered By: Priscilla Lang on 04-30-2024 Albumin/Globulin [Mass ratio] Serum or plasma albumin/globulin mass ratio [facility] Serum or plasma anion gap de terminationOrdered By: Priscilla Lang on 04-30-2024 Anion gap [Moles/Vol] Serum or plasma an ion gap determination 6.0-15.0 [facility] Sodium [Moles/volume] in Ser um or PlasmaOrdered By: Priscilla Lang on 04-30-2024 Sodium [Moles/Vol] Sodium [Moles/volume ] in Serum or Plasma 136-145 [facility] Urea nitrogen [Mass/volume] in Serum or PlasmaOrdered By: Priscilla Lang on 04-30-2024 Urea nitrogen [Mass/Vol] Urea nitrogen [Mass/volume] in Serum or Plasma 7-25 [facility] WBC Auto (Bld) [#/Vol]Ordere d By: Priscilla Lang on 04-30-2024 WBC (Bld) [#/Vol] Leukocytes [#/volume ] in Blood by Automated count 3.8-11.6 [facility] Amphetamine Screen Ql (U)Ord ered By: Priscilla Lang on 04-29-2024 Amphetamines Ql (U) Amphetamines screen Negativ e [facility] Barbiturates [Presence] in U rine by Screen methodOrdered By: Priscilla Lang on 04-29-2024 Barbiturates Screen Ql (U) Barbiturates [Presence] in Urine by Screen method Negative [facility] Basic Metabolic Panelon Anion gap [Moles/Vol] 11.3 mmol/L Normal 6.0-15.0 [facility] Comment on above: Order Comment: FASTI NG N Performed By: #### B MP, LIPID ####[facility] [place] [address] [facility] Calcium [Mass/Vol] 8.9 mg/dL Normal 8.6-10.3 [facility] Comment on above: Order Comment: FASTI NG N Performed By: #### B MP, LIPID ####[facility] [place] [address] [place] Chloride [Moles/Vol] 106 mmol/L Normal 98-107 [facility] Comment on above: Order Comment: FASTI NG N Performed By: #### B MP, LIPID ####[facility] [place] [address] [place] CO2 [Moles/Vol] 25.2 mmol/L Normal 21.0-31.0 [facility] Comment on above: Order Comment: FASTI NG N Performed By: #### B MP, LIPID ####[address] Creatinine [Mass/Vol] 0.85 mg/dL Normal 0.60-1.20 [facility] Comment on above: Order Comment: FASTI NG N Performed By: #### B MP, LIPID ####[address] Creatinine Clr Calc Pharmacy 77.21 Normal [facility] Comment on above: Order Comment: FASTI NG N Performed By: #### B MP, LIPID ####[address] GFR/1.73 sq M.predicted MDRD (S/P/Bld) [Vol rate/Area] mL/min/{1.73_m2} Normal [facility] Comment on above: Order Comment: FASTI NG N Performed By: #### B MP, LIPID ####[address] Glucose [Mass/Vol] 206 mg/dL High 70-100 [facility] Comment on above: Order Comment: FASTI NG N Result Comment: [employer] Glucose Reference Range is dependent on time and content of last meal. Glucose of more than 200 mg/dL in a nonstressed, ambulatory subject supports the diagnosis of Diabetes Mellitus. ADA recommended reference range Performed By: #### B MP, LIPID ####[address] Potassium [Moles/Vol] 3.5 mmol/L Normal 3.5-5.1 [facility] Comment on above: Order Comment: FASTI NG N Performed By: #### B MP, LIPID ####[place] [id number] [facility] Sodium [Moles/Vol] 139 mmol/L Normal 136-145 [facility] Comment on above: Order Comment: FASTI NG N Performed By: #### B MP, LIPID ####[address] [place] [address] [facility] Urea nitrogen [Mass/Vol] 9 mg/dL Normal 7-25 [facility] Comment on above: Order Comment: FASTI NG N Performed By: #### B MP, LIPID ####[facility] [id number] [place] [address] [facility] Benzodiazepines Screen Ql (U )Ordered By: Priscilla aLng on 04-29-2024 Benzodiazepines Ql (U) Benzodiazepines [Presence] in Urine by Screen method Negative [facility] Benzoylecgonine [Presence] i n Urine by Screen methodOrdered By: Priscilla Lang on 04-29-2024 Benzoylecgonine Screen Ql (U) Benzoylecgonine [Presence] in Urine by Screen method Negative [facility] Cannabinoids [Presence] in U rine by Screen methodOrdered By: Priscilla Lang on 04-29-2024 Cannabinoids Screen Ql (U) Cannabinoids [Presence] in Urine by Screen method Negative [facility] Comment on above: These are unconfirme d results and should not be used for legal purposes. Drug Cut-Off Concentration: AMPH 1000 ng/mL KENDRICK 200 ng/mL HEATHER 200 ng/mL COCM 300 ng/mL OP 300 ng/mL PCP 25 ng/mL THC 20 ng/mL Cholesterol [Mass/volume] in Serum or PlasmaOrdered By: Chico Hearn on 04-29-2024 Cholesterol [Mass/Vol] Cholesterol [Mass/volume] in Serum or Plasma Low 140-200 [facility] Comment on above: Chol less than 200 m g/dl low riskChol 201-239 mg/dl borderline riskChol 240 mg/dl and greater high risk Cholesterol in HDL [Mass/vol ume] in Serum or PlasmaOrdered By: Chico Hearn on 04-29-2024 Cholesterol in HDL [Mass/Vol] Serum or plasma high density lipoprotein (HDL) cholesterol measurement 23-92 [facility] Comment on above: HDL CHOL ATP-III CLA SSIFICATION Cardiovascular RiskHDL > or equal to 60 mg/dL LOWHDL < 40 mg/dL HIGH Cholesterol in LDL Calc [Mas s/Vol]Ordered By: Chico Hearn on 04-29-2024 Cholesterol in LDL [Mass/Vol] Cholesterol in LDL [Mass/volume] in Serum or Plasma by calculation 0-100 [facility] Comment on above: LDL ATP III CLASSIFI CATIONLDL less than 100 mg/dL OptimalLDL 100-129 mg/dL Near or above optimalLDL 130-159 mg/dL Borderline highLDL 160-189 mg/dL HighLDL greater than 189 mg/dL Very high Cholesterol in VLDL Calc [Ma ss/Vol]Ordered By: Chico Hearn on 04-29-2024 Cholesterol in VLDL [Mass/Vol] Cholesterol in VLDL [Mass/volume] in Serum or Plasma by calculation [facility] Drug Screen,Urineon 04-29-19 25 Amphetamine Screen,Urine Negative Normal Negative [facility] Comment on above: Performed By: #### U RDS, CUU ####[address] Barbiturate Screen,Urine Negative Normal Negative [facility] Comment on above: Performed By: #### U RDS, CUU ####[place] [id number] [facility] Benzodiazepines Screen,Urine Negative Normal Negative [facility] Comment on above: Performed By: #### U RDS, CUU ####[address] Cannabinoid Screen,Urine Negative Normal Negative [facility] Comment on above: Result Comment: Thes e are unconfirmed results and should not be used for legal purposes. Drug Cut-Off Concentration: AMPH 1000 ng/mL KENDRICK 200 ng/mL HEATHER 200 ng/mL COCM 300 ng/mL OP 300 ng/mL PCP 25 ng/mL THC 20 ng/mLPERFORMED BY:[address] [place], [place] [id number] MEDICAL DIRECTORLE MACE M.D. Performed By: #### U RDS, CUU ####[place] [id number] [facility] Cocaine Screen,Urine Negative Normal Negative [facility] Comment on above: Performed By: #### U RDS, CUU ####[place] [id number] [place] Opiate Screen,Urine Negative Normal Negative [facility] Comment on above: Performed By: #### U RDS, CUU ####[facility] [id number] [place] [address] [facility] Phencyclidine Screen,Urine Negative Normal Negative [facility] Comment on above: Performed By: #### U RDS, CUU ####[facility] [facility] [address] [place] [address] [facility] Glucose Poct Glucometerson 0 04-29-2024 Glucose [Mass/Vol] 165 mg/dL Normal [facility] Comment on above: Result Comment: [employer] om Glucose Reference Range is dependent on time and content of last meal. Glucose of more than 200 mg/dL in a nonstressed, ambulatory subject supports the diagnosis of Diabetes Mellitus.PERFORMED BY:[place] [address] [address] [place], [place] [id number] MEDICAL DIRECTORLE MACE M.D. Performed By: #### G LULS ####Point of Care testing, Commemt1 Glu2: Cleaned Meter Normal [facility] Comment on above: Result Comment: PERF ORMED BY:[address] [place], [place] [phone] MEDICAL DIRECTORLE MACE M.D. Performed By: #### G LULS ####Point of Care testing, Glucose [Mass/Vol] 188 mg/dL Normal [facility] Comment on above: Result Comment: [employer] om Glucose Reference Range is dependent on time and content of last meal. Glucose of more than 200 mg/dL in a nonstressed, ambulatory subject supports the diagnosis of Diabetes Mellitus. Performed By: #### G LULS ####Point of Care testing, Commemt1 Glu2: Cleaned Meter Normal [facility] Comment on above: Result Comment: PERF ORMED BY:[place] [address] [place], [place] [phone] MEDICAL DIRECTORLE MACE M.D. Performed By: #### G LULS ####Point of Care testing, Glucose [Mass/Vol] 192 mg/dL Normal [facility] Comment on above: Result Comment: [employer] om Glucose Reference Range is dependent on time and content of last meal. Glucose of more than 200 mg/dL in a nonstressed, ambulatory subject supports the diagnosis of Diabetes Mellitus. Performed By: #### G LULS ####Point of Care testing, Glucose [Mass/Vol] 210 mg/dL Normal [facility] Comment on above: Result Comment: [employer] om Glucose Reference Range is dependent on time and content of last meal. Glucose of more than 200 mg/dL in a nonstressed, ambulatory subject supports the diagnosis of Diabetes Mellitus.PERFORMED BY:[place] [address] [place], [place] [phone] MEDICAL DIRECTORLE MACE M.D. Performed By: #### G JUSTINALS ####Point of Care testing, Lipid Panelon 04-29-2024 Cholesterol [Mass/Vol] 106 mg/dL Low 140-200 [facility] Comment on above: Order Comment: FASTI NG N Result Comment: Chol less than 200 mg/dl low risk Chol 201-239 mg/dl borderline risk Chol 240 mg/dl and greater high risk Performed By: #### B MP, LIPID ####[place] [id number] [facility] Cholesterol in HDL [Mass/Vol] 31 mg/dL Normal 23-92 [facility] Comment on above: Order Comment: FASTI NG N Result Comment: HDL CHOL ATP-III CLASSIFICATION Cardiovascular Risk HDL > or equal to 60 mg/dL LOW HDL < 40 mg/dL HIGH Performed By: #### B MP, LIPID ####[address] [address] [facility] Cholesterol.total/Monica sterol in HDL [Mass ratio] 3.4 {ratio} Normal <5.0 [facility] Comment on above: Order Comment: FASTI NG N Result Comment: PERF ORMED BY:[place] [address] [place], [place] [phone] MEDICAL DIRECTORLE MACE M.D. Performed By: #### B MP, LIPID ####[facility] [id number] LDL Cholesterol,Calculated 45 mg/dL Normal 0-100 [facility] Comment on above: Order Comment: FASTI NG N Result Comment: LDL ATP III CLASSIFICATION LDL less than 100 mg/dL Optimal LDL 100-129 mg/dL Near or above optimal LDL 130-159 mg/dL Borderline high LDL 160-189 mg/dL High LDL greater than 189 mg/dL Very high Performed By: #### B MP, LIPID ####[facility] [id number] [place] [address] [facility] Triglyceride w/Reflex 151 mg/dL High 0-149 [facility] Comment on above: Order Comment: FASTI NG N Result Comment: TRIG ATP III CLASSIFICATION TRIG less than 150 mg/dL Normal TRIG 150-199 mg/dL Borderline high TRIG 200-500 mg/dL High TRIG greater than 500 mg/dL Very high Standard traceable to the Center for Disease Conrtrol and Prevention (CDC) test method. Performed By: #### B MP, LIPID ####[facility] VLDL CHOLESTEROL 30 mg/dL Normal [facility] Comment on above: Order Comment: FASTI NG N Performed By: #### B MP, LIPID ####[facility] [id number] [place] [id number] [facility] No Panel InformationOrdered By: Priscilla Lang on 04-29-2024 Bedside Glucose Comment Glu2: cleaned meter [facility] Opiates [Presence] in Urine by Screen methodOrdered By: Priscilla Lang on 04-29-2024 Opiates Screen Ql (U) Opiates [Presence] in Urine by Screen method Negative [facility] Phencyclidine Screen Ql (U)O rdered By: Priscilla Lang on 04-29-2024 Phencyclidine Ql (U) Phencyclidine [Pres ence] in Urine by Screen method Negative [facility] Serum or plasma total choles terol/high density lipoprotein (HDL) cholesterol mass ratOrdered By: Chico Hearn on 04-29-2024 Cholesterol.total/Monica sterol in HDL [Mass ratio] Serum or plasma total cholesterol/high density lipoprotein (HDL) cholesterol mass rat <5.0 [facility] Triglyceride [Mass/volume] i n Serum or PlasmaOrdered By: Chico Hearn on 04-29-2024 Triglyceride [Mass/Vol] Triglyceride [Mass/volume] in Serum or Plasma High 0-149 [facility] Comment on above: TRIG ATP III CLASSIF ICATIONTRIG less than 150 mg/dL NormalTRIG 150-199 mg/dL Borderline highTRIG 200-500 mg/dL High TRIG greater than 500 mg/dL Very highStandard traceable to the Center for Disease Conrtrol and Prevention (CDC) test method. Urine Cultureon 04-29-2024 Bacteria identified Cx Nom (U) Normal [facility] Comment on above: Performed By: #### U RDS, CUU ####[facility] [id number] [place] [id number] [facility] Urine cultureOrdered By: Bhargav Lang on 04-29-2024 Bacteria identified Cx Nom (U) Urine culture [facility] Alanine aminotransferase [En zymatic activity/volume] in Serum or PlasmaOrdered By: Wesley Villafuerte on 04-28-2024 ALT [Catalytic activity/Vol] Alanine aminotransferase [Enzymatic activity/volume] in Serum or Plasma 7-52 [facility] Albumin [Mass/volume] in Ser um or Plasma by Bromocresol green (BCG) dye binding methoOrdered By: Wesley Villafuerte on 04-28-2024 Albumin BCG dye [Mass/Vol] Albumin [Mass/volume] in Serum or Plasma by Bromocresol green (BCG) dye binding metho 3.5-5.7 [facility] Alkaline phosphatase [Enzyma tic activity/volume] in Serum or PlasmaOrdered By: Wesley Villafuerte on 04-28-2024 ALP [Catalytic activity/Vol] Alkaline phosphatase [Enzymatic activity/volume] in Serum or Plasma 34-104 [facility] Anisocytosis LM Ql (Bld)Orde red By: Wesley Villafuerte on 04-28-2024 Anisocytosis Ql (Bld) Anisocytosis [Pres ence] in Blood by Light microscopy [facility] Appearance of UrineOrdered B y: Wesley Villafuerte on 04-28-2024 Appearance (U) Urine appearance Clear [facility] Aspartate aminotransferase [ Enzymatic activity/volume] in Serum or PlasmaOrdered By: Wesley Villafuerte on 04-28-2024 AST [Catalytic activity/Vol] Aspartate aminotransferase [Enzymatic activity/volume] in Serum or Plasma 13-39 [facility] B-Type Natriuretic Peptideon 04-28-2024 Natriuretic peptide B (Bld) [Mass/Vol] 25.0 pg/mL Normal 5-100 [facility] Comment on above: Result Comment: PERF ORMED BY:[address] [place], [place] [phone] MEDICAL DIRECTORLE MACE M.D. Performed By: #### H S TROP, SCAN CBC, PTT, BNP, PT, MG, CMP ####[facility] [place] [address] [facility] Bacteria [Presence] in Urine by AutomatedOrdered By: Wesley Villafuerte on 04-28-2024 Bacteria Auto Ql (U) Bacteria [Presence] in Urine by Automated None Seen [facility] Basophils Auto (Bld) [#/Vol] Ordered By: Wesley Villafuerte on 04-28-2024 Basophils (Bld) [#/Vol] Automated basophil count 0.0-0.2 [facility] Basophils/100 WBC Auto (Bld) Ordered By: Wesley Villafuerte on 04-28-2024 Basophils/100 WBC (Bld) Automated basophil % . [facility] Bilirubin Test strip Ql (U)O rdered By: Wesley Villafuerte on 04-28-2024 Bilirubin Ql (U) Bilirubin.total [Presence] in Urine by Test strip Negative [facility] Bilirubin.total [Mass/volume ] in Serum or PlasmaOrdered By: Wesley Villafuerte on 04-28-2024 Bilirubin [Mass/Vol] Bilirubin.total [Mass/volume] in Serum or Plasma 0.3-1.0 [facility] BioFire Not Detectedon 04-28 Bio[employer] Not Detected Not detected Normal Not Detecte [facility] Comment on above: Result Comment: This is a duplicate RP2.1 COVID (PCR) result to be used for statistical tracking purpose only.PERFORMED BY:[place] [address] [address], [place] [phone] MEDICAL DIRECTORLE MACE M.D. Performed By: #### R GWYN PANEL UPP., BIOFIRECOVNOTDE ####[facility] [id number] [place] [address] [facility] COVID-19 Detected/Not Detect edOrdered By: Wesley Villafuerte on 04-28-2024 SARS-CoV-2 (COVID-19) RNA TEJINDER+non-probe Ql (Nph) Not detected Not Detecte [facility] Comment on above: This is a duplicate RP2.1 COVID (PCR) result to be used for statistical tracking purpose only. CT angio headon 04-28-2024 CT angio head Normal [facility] Calcium [Mass/volume] in Ser um or PlasmaOrdered By: Wesley Villafuerte on 04-28-2024 Calcium [Mass/Vol] Calcium [Mass/volume ] in Serum or Plasma 8.6-10.3 [facility] Carbon dioxide, total [Moles /volume] in Serum or PlasmaOrdered By: Wesley Villafuerte on 04-28-2024 CO2 [Moles/Vol] Carbon dioxide, tota l [Moles/volume] in Serum or Plasma 21.0-31.0 [facility] Chloride [Moles/volume] in S elliot or PlasmaOrdered By: Wesley Villafuerte on 04-28-2024 Chloride [Moles/Vol] Chloride [Moles/vol ume] in Serum or Plasma 98-107 [facility] Color Auto (U)Ordered By: Colin Villafuerte on 04-28-2024 Color (U) Color of Urine by Auto Yellow [facility] juan 04-28-2024 Albumin [Mass/Vol] 3.7 g/dL Normal 3.5-5.7 [facility] Comment on above: Performed By: #### H S TROP, SCAN CBC, PTT, BNP, PT, MG, CMP ####[facility] [id number] [place] [address] [facility] Albumin/Globulin [Mass ratio] 1.2 {ratio} Normal [facility] Comment on above: Performed By: #### H S TROP, SCAN CBC, PTT, BNP, PT, MG, CMP ####[address] ALP [Catalytic activity/Vol] 86 U/L Normal 34-104 [facility] Comment on above: Performed By: #### H S TROP, SCAN CBC, PTT, BNP, PT, MG, CMP ####[address] ALT [Catalytic activity/Vol] 20 U/L Normal 7-52 [facility] Comment on above: Performed By: #### H S TROP, SCAN CBC, PTT, BNP, PT, MG, CMP ####[address] Anion gap [Moles/Vol] 12.7 mmol/L Normal 6.0-15.0 [facility] Comment on above: Performed By: #### H S TROP, SCAN CBC, PTT, BNP, PT, MG, CMP ####[address] AST [Catalytic activity/Vol] 25 U/L Normal 13-39 [facility] Comment on above: Performed By: #### H S TROP, SCAN CBC, PTT, BNP, PT, MG, CMP ####[address] Bilirubin [Mass/Vol] 0.3 mg/dL Normal 0.3-1.0 [facility] Comment on above: Performed By: #### H S TROP, SCAN CBC, PTT, BNP, PT, MG, CMP ####[place] [id number] [facility] Calcium [Mass/Vol] 9.7 mg/dL Normal 8.6-10.3 [facility] Comment on above: Performed By: #### H S TROP, SCAN CBC, PTT, BNP, PT, MG, CMP ####[address] Chloride [Moles/Vol] 104 mmol/L Normal 98-107 [facility] Comment on above: Performed By: #### H S TROP, SCAN CBC, PTT, BNP, PT, MG, CMP ####[address] CO2 [Moles/Vol] 24.2 mmol/L Normal 21.0-31.0 [facility] Comment on above: Performed By: #### H S TROP, SCAN CBC, PTT, BNP, PT, MG, CMP ####[address] Creatinine [Mass/Vol] 0.85 mg/dL Normal 0.60-1.20 [facility] Comment on above: Performed By: #### H S TROP, SCAN CBC, PTT, BNP, PT, MG, CMP ####[address] Creatinine Clr Calc Pharmacy 77.21 Normal [facility] Comment on above: Performed By: #### H S TROP, SCAN CBC, PTT, BNP, PT, MG, CMP ####[address] GFR/1.73 sq M.predicted MDRD (S/P/Bld) [Vol rate/Area] mL/min/{1.73_m2} Normal [facility] Comment on above: Performed By: #### H S TROP, SCAN CBC, PTT, BNP, PT, MG, CMP ####[address] Globulin (S) [Mass/Vol] 3.1 g/dL Normal [facility] Comment on above: Performed By: #### H S TROP, SCAN CBC, PTT, BNP, PT, MG, CMP ####[address] Glucose [Mass/Vol] 231 mg/dL High 70-100 [facility] Comment on above: Result Comment: [employer] Glucose Reference Range is dependent on time and content of last meal. Glucose of more than 200 mg/dL in a nonstressed, ambulatory subject supports the diagnosis of Diabetes Mellitus. ADA recommended reference range Performed By: #### H S TROP, SCAN CBC, PTT, BNP, PT, MG, CMP ####[address] Potassium [Moles/Vol] 3.9 mmol/L Normal 3.5-5.1 [facility] Comment on above: Result Comment: Hemo lysis is present at a level that could interfere with the result. Contact lab if redraw is required Performed By: #### H S TROP, SCAN CBC, PTT, BNP, PT, MG, CMP ####[address] Protein [Mass/Vol] 6.8 g/dL Normal 6.4-8.9 [facility] Comment on above: Performed By: #### H S TROP, SCAN CBC, PTT, BNP, PT, MG, CMP ####[place] [id number] Sodium [Moles/Vol] 137 mmol/L Normal 136-145 [facility] Comment on above: Performed By: #### H S TROP, SCAN CBC, PTT, BNP, PT, MG, CMP ####[place] [id number] [facility] Urea nitrogen [Mass/Vol] 11 mg/dL Normal 7-25 [facility] Comment on above: Performed By: #### H S TROP, SCAN CBC, PTT, BNP, PT, MG, CMP ####[place] [id number] [facility] Creatinine [Mass/volume] in Serum or PlasmaOrdered By: Wesley Villafuerte on 04-28-2024 Creatinine [Mass/Vol] Creatinine [Mass/v olume] in Serum or Plasma 0.60-1.20 [facility] Dipstick and Microscopicon 1 Appearance (U) Clear Normal Clear [facility] Comment on above: Order Comment: Name Collection Type:: Clean-Voided Midstream Performed By: #### A DDONUAPLUS ####[address] Bacteria,Urine Rare Normal None Seen [facility] Comment on above: Order Comment: Name Collection Type:: Clean-Voided Midstream Performed By: #### A DDONUAPLUS ####[address] [address] [facility] Bilirubin,Urine Negative Normal Negative [facility] Comment on above: Order Comment: Name Collection Type:: Clean-Voided Midstream Performed By: #### A DDONUAPLUS ####[address] [address] [facility] Budding Yeast,Urine Rare High None Seen [facility] Comment on above: Order Comment: Name Collection Type:: Clean-Voided Midstream Result Comment: PERF ORMED BY:[address] [place], [place] [phone] MEDICAL DIRECTORMOKEVIN MACE M.D. Performed By: #### A DDONUAPLUS ####[address] [address] [facility] Color (U) Light-Yellow Normal Yellow [facility] Comment on above: Order Comment: Name Collection Type:: Clean-Voided Midstream Performed By: #### A DDONUAPLUS ####[address] [address] [facility] Glucose Ql (U) >= High Normal [facility] Comment on above: Order Comment: Name Collection Type:: Clean-Voided Midstream Performed By: #### A DDONUAPLUS ####[address] [address] [facility] Hyaline Casts,Urine 0 [LPF] Normal 0-8 [facility] Comment on above: Order Comment: Name Collection Type:: Clean-Voided Midstream Performed By: #### A DDONUAPLUS ####[address] [address] [facility] Ketones Ql (U) Negative Normal Negative [facility] Comment on above: Order Comment: Name Collection Type:: Clean-Voided Midstream Performed By: #### A DDONUAPLUS ####[address] [place] [address] [facility] Leukocyte esterase Test strip Ql (U) Negative Normal Negative [facility] Comment on above: Order Comment: Name Collection Type:: Clean-Voided Midstream Performed By: #### A DDONUAPLUS ####[address] [address] [facility] Nitrite,Urine Negative Normal Negative [facility] Comment on above: Order Comment: Name Collection Type:: Clean-Voided Midstream Performed By: #### A DDONUAPLUS ####[address] [address] [facility] Occult Blood,Urine 2+ High Negative [facility] Comment on above: Order Comment: Name Collection Type:: Clean-Voided Midstream Result Comment: PERF ORMED BY:[address] [place], [place] [phone] MEDICAL DIRECTORLE MACE M.D. Performed By: #### A DDONUAPLUS ####[address] [address] [facility] pH (U) 5.5 [pH] Normal 5.0-9.0 [facility] Comment on above: Order Comment: Name Collection Type:: Clean-Voided Midstream Performed By: #### A DDONUAPLUS ####[address] [address] [facility] Protein,Urine Negative Normal Negative [facility] Comment on above: Order Comment: Name Collection Type:: Clean-Voided Midstream Performed By: #### A DDONUAPLUS ####[address] [address] [facility] RBC,Urine 10 [HPF] High 0-4 [facility] Comment on above: Order Comment: Name Collection Type:: Clean-Voided Midstream Performed By: #### A DDONUAPLUS ####[address] [address] [facility] Specificy [place],Urine 1.038 High 1.00 1-1.03 0 [facility] Comment on above: Order Comment: Name Collection Type:: Clean-Voided Midstream Performed By: #### A DDONUAPLUS ####[address] Squamous Epithelial Cell,Urine 3 [HPF] High 0-2 [facility] Comment on above: Order Comment: Name Collection Type:: Clean-Voided Midstream Performed By: #### A DDONUAPLUS ####[address] Urobilinogen,Urine Normal Normal Normal [facility] Comment on above: Order Comment: Name Collection Type:: Clean-Voided Midstream Performed By: #### A DDONUAPLUS ####[address] WBC,Urine 5 [HPF] High 0-4 [facility] Comment on above: Order Comment: Name Collection Type:: Clean-Voided Midstream Performed By: #### A DDONUAPLUS ####[address] ECG 12 lead ECGon 04-28-2024 ECG 12 lead ECG Normal [facility] Eosinophils Auto (Bld) [#/Vo l]Ordered By: Wesley Villafuerte on 04-28-2024 Eosinophils (Bld) [#/Vol] Automated eosinophil count 0.0-0.45 [facility] Eosinophils/100 WBC Auto (Bl d)Ordered By: Wesley Villafuerte on 04-28-2024 Eosinophils/100 WBC (Bld) Automated eosinophil % . [facility] Epithelial cells.squamous [# /area] in Urine sediment by Automated countOrdered By: Wesley Villafuerte on 04-28-2024 Epithelial cells.squamous Auto (Urine sed) [#/Area] Epithelial cells.squamous [#/area] in Urine sediment by Automated count High 0-2 [facility] Erythrocyte distribution wid th Auto (RBC) [Ratio]Ordered By: Wesley Villafuerte on 04-28-2024 Erythrocyte distribution width (RBC) [Ratio] Erythrocyte distribution width [Ratio] by Automated count High 11.9-15.3 [facility] Erythrocyte morphology findi ng [Identifier] in BloodOrdered By: Wesley Villafuerte on 04-28-2024 RBC morphology finding Nom (Bld) RBC morphology [facility] Erythrocytes [#/area] in Uri ne sediment by Automated countOrdered By: Wesley Villafuerte on 04-28-2024 RBC Auto (Urine sed) [#/Area] Erythrocytes [#/area] in Urine sediment by Automated count High 0-4 [facility] Globulin Calc (S) [Mass/Vol] Ordered By: Wesley Villafuerte on 04-28-2024 Globulin (S) [Mass/Vol] Serum globulin measurement by calculation (mass/volume) [facility] Glucose [Mass/volume] in Ser um or PlasmaOrdered By: Wesley Villafuerte on 04-28-2024 Glucose [Mass/Vol] Glucose [Mass/volume ] in Serum or Plasma High 70-100 [facility] Comment on above: ADA recommended refe rence rangeRandom Glucose Reference Range is dependent on time and content of last meal. Glucose of more than 200 mg/dL in a nonstressed, ambulatory subject supports the diagnosis of Diabetes Mellitus. Glucose [Mass/volume] in Uri ne by Test stripOrdered By: Wesley Villafuerte on 04-28-2024 Glucose Test strip (U) [Mass/Vol] Glucose [Mass/volume] in Urine by Test strip High Normal [facility] HbA1c HPLC (Bld) [Mass fract ion]on 04-28-2024 HbA1c (Bld) [Mass fraction] Hemoglobin A1c/Hemoglobin.total in Blood by HPLC [facility] Hematocrit Auto (Bld) [Volum e fraction]Ordered By: Wesley Villafuerte on 04-28-2024 Hematocrit (Bld) [Volume fraction] Hematocrit [Volume Fraction] of Blood by Automated count High 34.0-46.4 [facility] Hemoglobin Test strip Ql (U) Ordered By: Wesley Villafuerte on 04-28-2024 Hemoglobin Ql (U) Hemoglobin [Presence ] in Urine by Test strip High Negative [facility] Hemoglobin [Mass/volume] in BloodOrdered By: Wesley Villafuerte on 04-28-2024 Hemoglobin (Bld) [Mass/Vol] Hemoglobin [Mass/volume] in Blood High 11.8-15.4 [facility] Hyaline casts [#/area] in Ur ine sediment by Automated countOrdered By: Wesley Villafuerte on 04-28-2024 Hyaline casts Auto (Urine sed) [#/Area] Hyaline casts [#/area] in Urine sediment by Automated count 0-8 [facility] INR in Platelet poor plasma by Coagulation assayOrdered By: Wesley Villafuerte on 04-28-2024 INR Coag (PPP) [Relative time] INR in Platelet poor plasma by Coagulation assay [facility] Comment on above: INR Therapeutic Rang e A) Pre- and Peroperative OAT started two weeks before surgery. NOT HIP SURGERY: 1.5 - 2.5 HIP SURGERY: 2 - 3B) Primary and secondary prevention of venous THROMBOSIS: 2 - 3C) Active venous thrombosis, pulmonary embolismand prevention of recurrent venous thrombosis: 2 - 3D) Prevention of arterial thromboembolismincluding patients with mechanical heart valves: 3 - 4.5 Ketones Test strip Ql (U)Ord ered By: Wesley Villafuerte on 04-28-2024 Ketones Ql (U) Ketones [Presence] i n Urine by Test strip Negative [facility] Leukocyte esterase [Presence ] in Urine by Test stripOrdered By: Wesley Villafuerte on 04-28-2024 Leukocyte esterase Test strip Ql (U) Leukocyte esterase [Presence] in Urine by Test strip Negative [facility] Leukocytes [#/area] in Urine sediment by Automated countOrdered By: Wesley Villafuerte on 04-28-2024 WBC Auto (Urine sed) [#/Area] Leukocytes [#/area] in Urine sediment by Automated count High 0-4 [facility] Leukocytes [#/volume] correc deepika for nucleated erythrocytes in Blood by Automated counOrdered By: Wesley Villafuerte on 04-28-2024 WBC corrected for nucl RBC Auto (Bld) [#/Vol] Leukocytes [#/volume] corrected for nucleated erythrocytes in Blood by Automated coun 3.8-11.6 [facility] Lymphocytes Auto (Bld) [#/Vo l]Ordered By: Wesley Villafuerte on 04-28-2024 Lymphocytes (Bld) [#/Vol] Lymphocytes [#/volume] in Blood by Automated count 1.00-4.8 [facility] Lymphocytes/100 WBC Auto (Bl d)Ordered By: Wesley Villafuerte on 04-28-2024 Lymphocytes/100 WBC (Bld) Lymphocytes/100 leukocytes in Blood by Automated count . [facility] MCH Auto (RBC) [Entitic mass ]Ordered By: Wesley Villafuerte on 04-28-2024 MCH (RBC) [Entitic mass] MCH [Entitic mass] by Automated count 24.7-34.3 [facility] MCHC Auto (RBC) [Mass/Vol]Or dered By: Wesley Villafuerte on 04-28-2024 MCHC (RBC) [Mass/Vol] MCHC [Mass/volume] by Automated count 32.0-35.0 [facility] MCV Auto (RBC) [Entitic vol] Ordered By: Wesley Villafuerte on 04-28-2024 MCV (RBC) [Entitic vol] MCV [Entitic vol ume] by Automated count 80-100 [facility] Magnesiumon 04-28-2024 Magnesium [Mass/Vol] 1.7 mg/dL Low 1.9-2.7 [facility] Comment on above: Result Comment: PERF ORMED BY:[facility] [place] [address] [place], [place] [id number] MEDICAL DIRECTORLE MACE M.D. Performed By: #### H S TROP, SCAN CBC, PTT, BNP, PT, MG, CMP ####[address] [address] [facility] Magnesium [Mass/volume] in S elliot or PlasmaOrdered By: Wesley Villafuerte on 04-28-2024 Magnesium [Mass/Vol] Magnesium [Mass/vol ume] in Serum or Plasma Low 1.9-2.7 [facility] Monocyte distribution width [Entitic volume] in Blood by AutomatedOrdered By: Wesley Villafuerte on 04-28-2024 Monocyte distribution width Auto (Bld) [Entitic vol] Monocyte distribution width [Entitic volume] in Blood by Automated High 0.00-20.00 [facility] Comment on above: For adults in ED, MD W > 20.0 may be associated with a higher risk of sepsis during the first 12 hrs of hospital admission Monocytes Auto (Bld) [#/Vol] Ordered By: Wesley Villafuerte on 04-28-2024 Monocytes (Bld) [#/Vol] Automated blood monocyte count 0.0-0.8 [facility] Monocytes/100 WBC Auto (Bld) Ordered By: Wesley Villafuerte on 04-28-2024 Monocytes/100 WBC (Bld) Automated monocyte % . [facility] Natriuretic peptide B [Mass/ Vol]Ordered By: Wesley Villafuerte on 04-28-2024 Natriuretic peptide B (Bld) [Mass/Vol] BNP ser/plas 5-100 [facility] Neutrophils Auto (Bld) [#/Vo l]Ordered By: Wesley Villafuerte on 04-28-2024 Neutrophils (Bld) [#/Vol] Neutrophils [#/volume] in Blood by Automated count 1.8-7.7 [facility] Neutrophils/100 WBC Auto (Bl d)Ordered By: Wesley Villafuerte on 04-28-2024 Neutrophils/100 WBC (Bld) Automated neutrophil % . [facility] Nitrite Test strip Ql (U)Ord ered By: Wesley Villafuerte on 04-28-2024 Nitrite Ql (U) Nitrite [Presence] i n Urine by Test strip Negative [facility] No Panel InformationOrdered By: Wesley Villafuerte on 04-28-2024 Estimated GFR (CKD-EPI) > 60.0 mL/Min [facility] Creatinine Clearance (Chem 77.21 [facility] No Panel Informationon 04-28 Bedside Glucose 211 [facility] Nucleated erythrocytes [Pres ence] in Blood by Automated countOrdered By: Wesley Villafuerte on 04-28-2024 Nucleated RBC Auto Ql (Bld) Nucleated erythrocytes [Presence] in Blood by Automated count 0-0.5 [facility] Partial Thromboplastin Timeo n 04-28-2024 aPTT Coag (Bld) [Time] 30.0 s Normal 25.1-36.5 [facility] Comment on above: Result Comment: A he matocrit value greater than 55% may lead to inaccurate results in coagulation testing. Patients having hematocrit values >55% require a special collection tube for coagulation studies. Please contact the laboratory at [phone] for redraw instructions.PERFORMED BY:[facility] [place], [place] [phone] MEDICAL DIRECTORLE MACE M.D. Performed By: #### H S TROP, SCAN CBC, PTT, BNP, PT, MG, CMP ####[facility] [id number] Platelet adequacy [Presence] in Blood by Light microscopyOrdered By: Wesley Villafuerte on 04-28-2024 Platelets LM Ql (Bld) Platelet adequacy [Presence] in Blood by Light microscopy Normal [facility] Platelet mean volume Auto (B ld) [Entitic vol]Ordered By: Wesley Villafuerte on 04-28-2024 Platelet mean volume (Bld) [Entitic vol] Platelet mean volume [Entitic volume] in Blood by Automated count 6.3-10.7 [facility] Platelet morphology finding [Identifier] in BloodOrdered By: Wesley Villafuerte on 04-28-2024 Platelet morphology finding Nom (Bld) Platelet morphology finding [Identifier] in Blood Normal [facility] Platelets Auto (Bld) [#/Vol] Ordered By: Wesley Villafuerte on 04-28-2024 Platelets (Bld) [#/Vol] Platelets [#/vol ume] in Blood by Automated count Low 150-450 [facility] Polychromasia [Presence] in Blood by Light microscopyOrdered By: Wesley Villafuerte on 04-28-2024 Polychromasia LM Ql (Bld) Polychromasia [Presence] in Blood by Light microscopy [facility] Potassium [Moles/volume] in Serum or PlasmaOrdered By: Wesley Villafuerte on 04-28-2024 Potassium [Moles/Vol] Potassium [Moles/v olume] in Serum or Plasma 3.5-5.1 [facility] Comment on above: Hemolysis is present at a level that could interfere with the result.Contact lab if redraw is required Protein Test strip (U) [Mass /Vol]Ordered By: Wesley Villafuerte on 04-28-2024 Protein (U) [Mass/Vol] Protein [Mass/vol ume] in Urine by Test strip Negative [facility] Protein [Mass/volume] in Ser um or PlasmaOrdered By: Wesley Villafuerte on 04-28-2024 Protein [Mass/Vol] Protein [Mass/volume ] in Serum or Plasma 6.4-8.9 [facility] Prothrombin Time INRon 12-31 -2024 INR Coag (PPP) [Relative time] 1.3 {INR} Normal [facility] Comment on above: Result Comment: INR Therapeutic Range A) Pre- [...] valves: 3 - 4.5 Performed By: #### H S TROP, SCAN CBC, PTT, BNP, PT, MG, CMP ####[facility] [place] [address] [facility] PT Coag (PPP) [Time] 15.1 s High 9.0-12.9 [facility] Comment on above: Result Comment: A he matocrit value greater than 55% may lead to inaccurate results in coagulation testing. Patients having hematocrit values >55% require a special collection tube for coagulation studies. Please contact the laboratory at [phone] for redraw instructions. Performed By: #### H S TROP, SCAN CBC, PTT, BNP, PT, MG, CMP ####[place] [id number] [place] [id number] [facility] Prothrombin time (PT)Ordered By: Wesley Villafuerte on 04-28-2024 PT Coag (PPP) [Time] Prothrombin time (PT) High 9.0- 12.9 [facility] Comment on above: A hematocrit value g reater than 55% may lead to inaccurate results in coagulation testing. Patients having hematocrit values >55% require a special collection tube for coagulation studies. Please contact the laboratory at [phone] for redraw instructions. RBC Auto (Bld) [#/Vol]Ordere d By: Wesley Villafuerte on 04-28-2024 RBC (Bld) [#/Vol] Erythrocytes [#/volu me] in Blood by Automated count High 3.60-5.00 [facility] Respiratory (Upper) Panel, P CRon 04-28-2024 Respiratory (Upper) Panel, PCR Normal [facility] Comment on above: Performed By: #### R GWYN PANEL UPP., BIOFIRECOVNOTDE ####[address] Respiratory pathogens DNA an d RNA panel - Nasopharynx by TEJINDER with non-probe detectionOrdered By: Wesley Villafuerte on 04-28-2024 Respiratory pathogens DNA and RNA panel TEJINDER+non-probe (Nph) Respiratory pathogens DNA and RNA panel - Nasopharynx by TEJINDER with non-probe detection [facility] Scan and CBCon 04-28-2024 Anisocytosis Ql (Bld) Slight Normal [facility] Comment on above: Performed By: #### H S TROP, SCAN CBC, PTT, BNP, PT, MG, CMP ####[address] Basophils (Bld) [#/Vol] 0.1 10*3/uL Normal 0.0-0.2 [facility] Comment on above: Performed By: #### H S TROP, SCAN CBC, PTT, BNP, PT, MG, CMP ####[address] Basophils/100 WBC (Bld) 1.1 % Normal . T [facility] Comment on above: Performed By: #### H S TROP, SCAN CBC, PTT, BNP, PT, MG, CMP ####[address] Eosinophils (Bld) [#/Vol] 0.3 10*3/uL Normal 0.0-0.45 [facility] Comment on above: Performed By: #### H S TROP, SCAN CBC, PTT, BNP, PT, MG, CMP ####[address] Eosinophils/100 WBC (Bld) 2.7 % Normal . [facility] Comment on above: Performed By: #### H S TROP, SCAN CBC, PTT, BNP, PT, MG, CMP ####[address] Erythrocyte distribution width (RBC) [Ratio] 15.4 % High 11.9-15.3 [facility] Comment on above: Performed By: #### H S TROP, SCAN CBC, PTT, BNP, PT, MG, CMP ####[address] Hematocrit (Bld) [Volume fraction] 48.1 % High 34.0-46.4 [facility] Comment on above: Performed By: #### H S TROP, SCAN CBC, PTT, BNP, PT, MG, CMP ####[address] Hemoglobin (Bld) [Mass/Vol] 16.0 g/dL High 11.8-15.4 [facility] Comment on above: Performed By: #### H S TROP, SCAN CBC, PTT, BNP, PT, MG, CMP ####[address] Lymphocytes (Bld) [#/Vol] 2.5 10*3/uL Normal 1.00-4.8 [facility] Comment on above: Performed By: #### H S TROP, SCAN CBC, PTT, BNP, PT, MG, CMP ####[address] Lymphocytes/100 WBC (Bld) 24.6 % Normal . [facility] Comment on above: Performed By: #### H S TROP, SCAN CBC, PTT, BNP, PT, MG, CMP ####[address] MCH (RBC) [Entitic mass] 31.7 pg Normal 24.7-34.3 [facility] Comment on above: Performed By: #### H S TROP, SCAN CBC, PTT, BNP, PT, MG, CMP ####[address] MCV (RBC) [Entitic vol] 95.1 fL Normal 80-100 [facility] Comment on above: Performed By: #### H S TROP, SCAN CBC, PTT, BNP, PT, MG, CMP ####[address] Mean Corpuscular HGB Conc 33.3 g/dL Normal 32.0-35.0 [facility] Comment on above: Performed By: #### H S TROP, SCAN CBC, PTT, BNP, PT, MG, CMP ####[address] Monocytes (Bld) [#/Vol] 0.8 10*3/uL Normal 0.0-0.8 [facility] Comment on above: Performed By: #### H S TROP, SCAN CBC, PTT, BNP, PT, MG, CMP ####[address] Monocytes/100 WBC (Bld) 20.25 % High 0.00-20.00 [facility] Comment on above: Result Comment: For adults in ED, MDW > 20.0 may be associated with a higher risk of sepsis during the first 12 hrs of hospital admission Performed By: #### H S TROP, SCAN CBC, PTT, BNP, PT, MG, CMP ####[address] Monocytes/100 WBC (Bld) 7.6 % Normal . [facility] Comment on above: Performed By: #### H S TROP, SCAN CBC, PTT, BNP, PT, MG, CMP ####[address] Neutrophils (Bld) [#/Vol] 6.5 10*3/uL Normal 1.8-7.7 [facility] Comment on above: Performed By: #### H S TROP, SCAN CBC, PTT, BNP, PT, MG, CMP ####[address] Neutrophils/100 WBC (Bld) 64.0 % Normal . [facility] Comment on above: Performed By: #### H S TROP, SCAN CBC, PTT, BNP, PT, MG, CMP ####[address] NRBC% 0.2 /100{WBC} Normal 0-0.5 [facility] Comment on above: Performed By: #### H S TROP, SCAN CBC, PTT, BNP, PT, MG, CMP ####[place] [id number] [place] [address] [facility] Platelet Estimate Decreased Normal Normal [facility] Comment on above: Performed By: #### H S TROP, SCAN CBC, PTT, BNP, PT, MG, CMP ####[address] [address] [facility] Platelet mean volume (Bld) [Entitic vol] 9.9 fL Normal 6.3-10.7 [facility] Comment on above: Performed By: #### H S TROP, SCAN CBC, PTT, BNP, PT, MG, CMP ####[address] [address] [facility] Platelet Morphology Normal Normal Normal [facility] Comment on above: Result Comment: PERF ORMED BY:[address] [place], [place] [phone] MEDICAL DIRECTORLE MACE M.D. Performed By: #### H S TROP, SCAN CBC, PTT, BNP, PT, MG, CMP ####[address] [address] [facility] Platelets (Bld) [#/Vol] 136 10*3/uL Low 150-450 [facility] Comment on above: Performed By: #### H S TROP, SCAN CBC, PTT, BNP, PT, MG, CMP ####[address] [address] [facility] Polychromasia Slight Normal [facility] Comment on above: Performed By: #### H S TROP, SCAN CBC, PTT, BNP, PT, MG, CMP ####[address] [address] [facility] RBC (Bld) [#/Vol] 5.06 10*6/uL High 3.60-5.00 [facility] Comment on above: Performed By: #### H S TROP, SCAN CBC, PTT, BNP, PT, MG, CMP ####[address] [address] [facility] WBC (Bld) [#/Vol] 10.2 10*3/uL Normal 3.8-11.6 [facility] Comment on above: Performed By: #### H S TROP, SCAN CBC, PTT, BNP, PT, MG, CMP ####[facility] [place] [address] [facility] WBC (Bld) [#/Vol] 10.9 10*3/uL Normal 3.8-11.6 [facility] Comment on above: Performed By: #### H S TROP, SCAN CBC, PTT, BNP, PT, MG, CMP ####[place] [id number] [place] [id number] [facility] Serum or plasma albumin/glob ulin mass ratioOrdered By: Wesley Villafuerte on 04-28-2024 Albumin/Globulin [Mass ratio] Serum or plasma albumin/globulin mass ratio [facility] Serum or plasma anion gap de terminationOrdered By: Wesley Villafuerte on 04-28-2024 Anion gap [Moles/Vol] Serum or plasma an ion gap determination 6.0-15.0 [facility] Sodium [Moles/volume] in Ser um or PlasmaOrdered By: Wesley Villafuerte on 04-28-2024 Sodium [Moles/Vol] Sodium [Moles/volume ] in Serum or Plasma 136-145 [facility] Specific gravity Test strip (U) [Rel density]Ordered By: Wesley Villafuerte on 04-28-2024 Specific gravity (U) [Rel density] Specific gravity of Urine by Test strip High 1.001-1.03 0 [facility] Troponin I High Sensitivityo n 04-28-2024 Troponin I High Sensitivity 5.1 pg/mL Normal 0.0-15.0 [facility] Comment on above: Result Comment: PERF ORMED BY:[address] [place], [place] [id number] MEDICAL DIRECTORLE MACE M.D. Performed By: #### H S TROP, SCAN CBC, PTT, BNP, PT, MG, CMP ####[place] [id number] [place] [id number] [facility] Troponin I.cardiac [Mass/vol ume] in Serum or Plasma by Detection limit <= 0.01 ng/Ordered By: Wesley Villafuerte on 04-28-2024 Troponin I.cardiac DL <= 0.01 ng/mL [Mass/Vol] Troponin I.cardiac [Mass/volume] in Serum or Plasma by Detection limit <= 0.01 ng/ 0.0-15.0 [facility] Urea nitrogen [Mass/volume] in Serum or PlasmaOrdered By: Wesley Villafuerte on 04-28-2024 Urea nitrogen [Mass/Vol] Urea nitrogen [Mass/volume] in Serum or Plasma 11-20 [facility] Urobilinogen Test strip (U) [Mass/Vol]Ordered By: Wesley Villafuerte on 04-28-2024 Urobilinogen (U) [Mass/Vol] Urobilinogen [Mass/volume] in Urine by Test strip Normal [facility] WBC Auto (Bld) [#/Vol]Ordere d By: Wesley Villafuerte on 04-28-2024 WBC (Bld) [#/Vol] Leukocytes [#/volume ] in Blood by Automated count 3.8-11.6 [facility] X-ray reportOrdered By: Oz Bowling on 04-28-2024 Study report [facility] [place] [address] XRay Report Signed Patient: Taye Gay MR#: [id number] : 1955 Acct:[id number] Age/Sex: 68 / F ADM Date: 4 Loc: ER Room: Type: [facility] ER Attending Dr: Copies to: Wesley Villafuerte PA-C~ Ordering Provider: Wesley Villafuerte PA-C Date of Service: 04/28/24 XR/XR chest 2V*: Neuro Symptoms/Deficit XR chest 2V* 04/28/2024 7:45 PM SIGNS AND SYMPTOMS: Weakness, slurred speech PROTOCOL: Frontal and lateral radiographs of the chest COMPARISON: 09/12/2023 FINDINGS: The trachea is midline. Atherosclerotic changes are noted in the thoracic aorta. There is mild cardiomegaly. There is mild perihilar vascular prominencewhich may indicate volume overload. The lung parenchyma is clear, otherwise. The bony thorax is intact. XR/XR chest 2V* IMPRESSION: There is mild cardiomegaly with perihilar vascular prominence which may indicatemild volume overload/congestive heart failure. Impression dictated by: Oz Bowling M.D.04/28/2024 9:46 PM Dictation Location: [place] [address] Transcribed By: AMY 04/28/242145 Dictated By: Oz Bowling II, MD 04/28/242143 Signed By: 04/28/242145 [facility] Work Phone: XR chest 2V*on 04-28-2024 XR chest 2V* Normal [facility] Yeast.budding [Presence] in Urine by Computer assisted methodOrdered By: Wesley Villafuerte on 04-28-2024 Yeast.budding Computer assisted Ql (U) Yeast.budding [Presence] in Urine by Computer assisted method High None Seen [facility] aPTT in Platelet poor plasma by Coagulation assayOrdered By: Wesley Villafuerte on 04-28-2024 aPTT Coag (PPP) [Time] Activated partial thromboplastin time (aPTT) in platelet poor plasma by coagulation a 25.1-36.5 [facility] Comment on above: A hematocrit value g reater than 55% may lead to inaccurate results in coagulation testing. Patients having hematocrit values >55% require a special collection tube for coagulation studies. Please contact the laboratory at [phone] for redraw instructions. pH Test strip (U)Ordered By: Wesley Villafuerte on 04-28-2024 pH (U) pH of Urine by Test strip 5.0-9.0 [facility] ECG 12 lead ECGon 04-27-2024 ECG 12 lead ECG Normal [facility] CBC W Auto Differential pane l (Bld)on 04-14-2024 Basophils (Bld) [#/Vol] 0.1 10*3/uL 0.0 - 0.2 10*3/uL [facility] Basophils/100 WBC Manual cnt (Syn fld) 0.6 % . [facility] Eosinophils (Bld) [#/Vol] 0.3 10*3/uL 0.0 - 0.45 10*3/uL [facility] Eosinophils/100 WBC Manual cnt (Syn fld) 2.6 % . [facility] Erythrocyte distribution width (RBC) [Ratio] 15 % 11.9 - 15.3 % [facility] Hematocrit (Bld) [Volume fraction] 49.7 % High 34.0 - 46.4 % [facility] Hemoglobin (Bld) [Mass/Vol] 16.6 g/dL High 11.8 - 15.4 g/dL [facility] Interpretation and review of laboratory results Abnormal [facility] Lymphocytes (Bld) [#/Vol] 2.1 10*3/uL 1.00 - 4.8 10*3/uL [facility] Lymphocytes/100 WBC Manual cnt (Syn fld) 19.3 % . [facility] MCH (RBC) [Entitic mass] 31.2 pg 24.7 - 34.3 pg [facility] MCHC (RBC) [Mass/Vol] 33.4 g/dL 32.0 - 35.0 g/dL [facility] MCV (RBC) [Entitic vol] 93.4 fL 80 - 100 fL [facility] Monocytes (Bld) [#/Vol] 0.9 10*3/uL High 0.0 - 0.8 10*3/uL [facility] Monocytes+Macrophages/1 00 WBC Manual cnt (Syn fld) 8.7 % . [facility] Neutrophils (Bld) [#/Vol] 7.3 10*3/uL 1.8 - 7.7 10*3/uL [facility] Neutrophils/100 WBC Manual cnt (Syn fld) 68.8 % . [facility] NRBC 0.1 /100{WBC} 0 - 0.5 /100{WBC} [facility] Platelet mean volume (Bld) [Entitic vol] 8.9 fL 6.3 - 10.7 fL [facility] Platelets (Bld) [#/Vol] 167 10*3/uL 150 - 450 10*3/uL [facility] RBC LM.HPF (Urine sed) [#/Area] 5.32 10*6/uL High 3.60 - 5.00 10*6/uL [facility] WBC (Bld) [#/Vol] 10.7 10*3/uL 3.8 - 11.6 10*3/uL [facility] WBC LM.HPF (Urine sed) [#/Area] 10.7 10*3/uL 3.8 - 11.6 10*3/uL [facility] Complete Blood Count Auto Di ffon 04-14-2024 Basophils (Bld) [#/Vol] 0.1 10*3/uL Normal 0.0-0.2 [facility] Comment on above: Result Comment: PERF ORMED BY:[address] [place], [place] [phone] MEDICAL DIRECTORLE MACE M.D. Performed By: #### C MP, LDH, PATH SLIDE REV, CBC ####[address] Basophils/100 WBC (Bld) 0.6 % Normal . [facility] Comment on above: Performed By: #### C MP, LDH, PATH SLIDE REV, CBC ####[address] Eosinophils (Bld) [#/Vol] 0.3 10*3/uL Normal 0.0-0.45 [facility] Comment on above: Performed By: #### C MP, LDH, PATH SLIDE REV, CBC ####[address] Eosinophils/100 WBC (Bld) 2.6 % Normal . [facility] Comment on above: Performed By: #### C MP, LDH, PATH SLIDE REV, CBC ####[address] Erythrocyte distribution width (RBC) [Ratio] 15.0 % Normal 11.9-15.3 [facility] Comment on above: Performed By: #### C MP, LDH, PATH SLIDE REV, CBC ####[address] Hematocrit (Bld) [Volume fraction] 49.7 % High 34.0-46.4 [facility] Comment on above: Performed By: #### C MP, LDH, PATH SLIDE REV, CBC ####[place] [address] Hemoglobin (Bld) [Mass/Vol] 16.6 g/dL High 11.8-15.4 [facility] Comment on above: Performed By: #### C MP, LDH, PATH SLIDE REV, CBC ####[address] Lymphocytes (Bld) [#/Vol] 2.1 10*3/uL Normal 1.00-4.8 [facility] Comment on above: Performed By: #### C MP, LDH, PATH SLIDE REV, CBC ####[address] Lymphocytes/100 WBC (Bld) 19.3 % Normal . [facility] Comment on above: Performed By: #### C MP, LDH, PATH SLIDE REV, CBC ####[address] MCH (RBC) [Entitic mass] 31.2 pg Normal 24.7-34.3 [facility] Comment on above: Performed By: #### C MP, LDH, PATH SLIDE REV, CBC ####[address] MCV (RBC) [Entitic vol] 93.4 fL Normal 80-100 [facility] Comment on above: Performed By: #### C MP, LDH, PATH SLIDE REV, CBC ####[address] Mean Corpuscular HGB Conc 33.4 g/dL Normal 32.0-35.0 [facility] Comment on above: Performed By: #### C MP, LDH, PATH SLIDE REV, CBC ####[address] Monocytes (Bld) [#/Vol] 0.9 10*3/uL High 0.0-0.8 [facility] Comment on above: Performed By: #### C MP, LDH, PATH SLIDE REV, CBC ####[address] Monocytes/100 WBC (Bld) 8.7 % Normal . T [facility] Comment on above: Performed By: #### C MP, LDH, PATH SLIDE REV, CBC ####[address] Neutrophils (Bld) [#/Vol] 7.3 10*3/uL Normal 1.8-7.7 [facility] Comment on above: Performed By: #### C MP, LDH, PATH SLIDE REV, CBC ####[place] [id number] [facility] Neutrophils/100 WBC (Bld) 68.8 % Normal . [facility] Comment on above: Performed By: #### C MP, LDH, PATH SLIDE REV, CBC ####[place] [id number] [facility] NRBC% 0.1 /100{WBC} Normal 0-0.5 [facility] Comment on above: Performed By: #### C MP, LDH, PATH SLIDE REV, CBC ####[place] [id number] [facility] Platelet mean volume (Bld) [Entitic vol] 8.9 fL Normal 6.3-10.7 [facility] Comment on above: Performed By: #### C MP, LDH, PATH SLIDE REV, CBC ####[address] [address] [facility] Platelets (Bld) [#/Vol] 167 10*3/uL Normal 150-450 [facility] Comment on above: Performed By: #### C MP, LDH, PATH SLIDE REV, CBC ####[place] [id number] [facility] RBC (Bld) [#/Vol] 5.32 10*6/uL High 3.60-5.00 [facility] Comment on above: Performed By: #### C MP, LDH, PATH SLIDE REV, CBC ####[address] [address] [facility] WBC (Bld) [#/Vol] 10.7 10*3/uL Normal 3.8-11.6 [facility] Comment on above: Performed By: #### C MP, LDH, PATH SLIDE REV, CBC ####[address] [address] [facility] Comprehensive Metabolic Pane juan 04-14-2024 Albumin [Mass/Vol] 4.1 g/dL Normal 3.5-5.7 [facility] Comment on above: Performed By: #### C MP, LDH, PATH SLIDE REV, CBC ####[place] [id number] [facility] Albumin/Globulin [Mass ratio] 1.2 {ratio} Normal [facility] Comment on above: Performed By: #### C MP, LDH, PATH SLIDE REV, CBC ####[place] [id number] [facility] ALP [Catalytic activity/Vol] 92 U/L Normal 34-104 [facility] Comment on above: Performed By: #### C MP, LDH, PATH SLIDE REV, CBC ####[place] [id number] [facility] ALT [Catalytic activity/Vol] 20 U/L Normal 7-52 [facility] Comment on above: Performed By: #### C MP, LDH, PATH SLIDE REV, CBC ####[place] [id number] [facility] Anion gap [Moles/Vol] 16.1 mmol/L High 6.0-15.0 [facility] e [facility] Comment on above: Performed By: #### C MP, LDH, PATH SLIDE REV, CBC ####[place] [id number] [facility] AST [Catalytic activity/Vol] 26 U/L Normal 13-39 [facility] Comment on above: Performed By: #### C MP, LDH, PATH SLIDE REV, CBC ####[place] [id number] [facility] Bilirubin [Mass/Vol] 0.6 mg/dL Normal 0.3-1.0 [facility] Comment on above: Performed By: #### C MP, LDH, PATH SLIDE REV, CBC ####[place] [id number] [facility] Calcium [Mass/Vol] 10.0 mg/dL Normal 8.6-10.3 [facility] Comment on above: Performed By: #### C MP, LDH, PATH SLIDE REV, CBC ####[place] [id number] [facility] Chloride [Moles/Vol] 101 mmol/L Normal 98-107 [facility] Comment on above: Performed By: #### C MP, LDH, PATH SLIDE REV, CBC ####[address] CO2 [Moles/Vol] 26.9 mmol/L Normal 21.0-31.0 [facility] Comment on above: Performed By: #### C MP, LDH, PATH SLIDE REV, CBC ####[address] Creatinine [Mass/Vol] 0.83 mg/dL Normal 0.60-1.20 [facility] Comment on above: Performed By: #### C MP, LDH, PATH SLIDE REV, CBC ####[address] Creatinine Clr Calc Pharmacy 78.05 Normal [facility] Comment on above: Performed By: #### C MP, LDH, PATH SLIDE REV, CBC ####[address] GFR/1.73 sq M.predicted MDRD (S/P/Bld) [Vol rate/Area] mL/min/{1.73_m2} Normal [facility] Comment on above: Performed By: #### C MP, LDH, PATH SLIDE REV, CBC ####[address] Globulin (S) [Mass/Vol] 3.3 g/dL Normal [facility] Comment on above: Performed By: #### C MP, LDH, PATH SLIDE REV, CBC ####[address] Glucose [Mass/Vol] 169 mg/dL High 70-100 [facility] Comment on above: Result Comment: [facility] Glucose Reference Range is dependent on time and content of last meal. Glucose of more than 200 mg/dL in a nonstressed, ambulatory subject supports the diagnosis of Diabetes Mellitus. ADA recommended reference range Performed By: #### C MP, LDH, PATH SLIDE REV, CBC ####[address] Potassium [Moles/Vol] 4.0 mmol/L Normal 3.5-5.1 [facility] Comment on above: Performed By: #### C MP, LDH, PATH SLIDE REV, CBC ####[address] Protein [Mass/Vol] 7.4 g/dL Normal 6.4-8.9 [facility] Comment on above: Performed By: #### C MP, LDH, PATH SLIDE REV, CBC ####[address] Sodium [Moles/Vol] 140 mmol/L Normal 136-145 [facility] Comment on above: Performed By: #### C MP, LDH, PATH SLIDE REV, CBC ####[address] Urea nitrogen [Mass/Vol] 8 mg/dL Normal 7-25 [facility] Comment on above: Performed By: #### C MP, LDH, PATH SLIDE REV, CBC ####[address] Comprehensive metabolic pane juan 04-14-2024 Albumin [Mass/Vol] 4.1 g/dL 3.5 - 5.7 g/dL [facility] Albumin/Globulin [Mass ratio] 1.2 {ratio} [facility] ALP [Catalytic activity/Vol] 92 U/L 34 - 104 U/L [facility] ALT [Catalytic activity/Vol] 20 U/L 7 - 52 U/L [facility] Anion gap [Moles/Vol] 16.1 mmol/L High 6.0 - 15.0 meq/L [facility] AST [Catalytic activity/Vol] 26 U/L 13 - 39 U/L [facility] Bilirubin [Mass/Vol] 0.6 mg/dL 0.3 - 1 .0 mg/dL [facility] Calcium [Mass/Vol] 10 mg/dL 8.6 - 10. 3 mg/dL [facility] Chloride [Moles/Vol] 101 mmol/L 98 - 10 7 mmol/L [facility] CO2 [Moles/Vol] 26.9 mmol/L 21.0 - 31.0 mmol/L [facility] Creatinine (U) [Mass/Vol] 0.83 mg/dL 0.60 - 1.20 mg/dL [facility] CREATININE CLR CALC PHARMACY 78.05 [facility] ESTIMATED GFR mL/Min [facility] Globulin (S) [Mass/Vol] 3.3 g/dL N [facility] Glucose [Mass/Vol] 169 mg/dL High 70 - 100 mg/dL [facility] Comment on above: Random Glucose Refer ence Range is dependent on time and content of last meal. Glucose of more than 200 mg/dL in a nonstressed, ambulatory subject supports the diagnosis of Diabetes Mellitus. ADA recommended reference range Interpretation and review of laboratory results Abnormal [facility] Potassium [Moles/Vol] 4 mmol/L 3.5 - 5.1 mmol/L [facility] Protein [Mass/Vol] 7.4 g/dL 6.4 - 8.9 g/dL [facility] Sodium [Moles/Vol] 140 mmol/L 136 - 145 mmol/L [facility] Urea nitrogen [Mass/Vol] 8 mg/dL 7 - 25 mg/dL [facility] Juan 04-14-2024 L Normal [facility] LDH Lactate Dehydrogenaseon 04-14-2024 LDH Lactate Dehydrogenase 155 U/L Normal 140-271 [facility] Comment on above: Result Comment: PERF ORMED BY:[facility] [place], [place] [phone] MEDICAL DIRECTORLE MACE M.D. Performed By: #### C MP, LDH, PATH SLIDE REV, CBC ####[facility] Martinezformerly [facility] [place] [address] [place] LDH Lactate to pyruvate reac tion [Catalytic activity/Vol]on 04-14-2024 LDH LACTATE DEHYDROGENASE 155 U/L 140 - 271 U/L [facility] No Panel Informationon 04-14 [facility] PATHOLOGIST SLIDE REVIEW ( )on 04-14-2024 PATHOLOGIST SLIDE REVIEW Ordered Path Review [facility] Pathologist Slide Reviewon 1 06-15-2023 Pathologist Slide Review Ordered Path Review Normal [facility] Comment on above: Result Comment: PERF ORMED BY:[facility] [place], [place] [phone] MEDICAL DIRECTORLE MACE M.D. Performed By: #### C MP, LDH, PATH SLIDE REV, CBC ####[facility] [address] [place] [address] [facility] ECG 12 Leadon 03-25-2024 Normal sinus rhythm [facility] Work Phone: [facility] Work Phone: Aerobic cultureOrdered By: Vamsi Fritz on 01-07-2024 Bacteria identified Aer cx Nom (Unsp spec) [facility] Superficial Wound Cultureon 01-07-2024 Superficial Wound Culture Plantar right foot Result Tab Codes Light Normal Skin Erna 2 Days PERFORMED BY: [facility] [address] [place] [address] PATHOLOGIST MEAT BLENDER SADAF STANTON M.D. Normal [facility] Comment on above: Performed By: #### C USUP ####[address] [address] [facility] US venous duplex LE BIon US venous duplex LE BI Normal Th e [facility] XR pre/post mri xrayon 12-16 XR pre/post mri xray Normal [facility] ECG 12 Leadon 12-16-2023 [facility] Work Phone: Normal sinus rhythm [facility] Work Phone: ANAon 12-07-2023 ANTINUCLEAR ABS, IFA Positive Critically abnormal . [facility] Comment on above: Negative <1:80 Borderline 1:80 Positive >1:80 Interpretation and review of laboratory results Abnormal [facility] NOTE 1 Comment . [facility] Comment on above: Pattern Potential Di sease Association Homogeneous Systemic Lupus Erythematosus, Drug Induced Systemic Lupus Erythematosus, Chronic Autoimmune hepatitis, Juvenile Idiopathic Arthritis Speckled Sjogren Syndrome, Systemic Lupus Erythematosus, Subacute Cutaneous Lupus, Lupus, Congenital Heart Block, Mixed Connective Tissue Disease, Scleroderma-diffuse, Scleroderma-Autoimmune Myositis Overlap Syndrome, Systemic Lupus Siimwqjyrweah-Lcjaktarnpb-Sxcqcubbvv Myositis Overlap Syndrome, Systemic Autoimmune Rheumatic Disease, [...] Cytopenias, Linear Scleroderma, Antiphospholipid Syndrome Performed at: [address] [id number] Loading Checker: Yuri Osullivan PhD, Phone: [phone] SPECKLED PATTERN 1:320 High . [facility] Comment on above: ICAP nomenclature: A C-2,4,5,29 ANCA PROFILE (ANCA+MPO+PR3)o n 12-07-2023 ANTIMYELOPEROXIDASE (MPO) ABS <0.2 0.0 - 0.9 [facility] ATYPICAL PANCA <1:20 Neg:<1:20 [facility] Comment on above: The atypical pANCA p attern has been observed in a significant percentage of patients with ulcerative colitis, primary sclerosing cholangitis and autoimmune hepatitis. Performed at: [address] [id number] Loading Checker: Christine Pham MD, Phone: [phone] Performed at: [address] [id number] Loading Checker: Yuri Osullivan PhD, Phone: [phone] CYTOPLASMIC (C-ANCA) <1:20 Neg:<1:20 [facility] PERINUCLEAR (P-ANCA) <1:20 Neg:<1:20 [facility] Comment on above: The presence of posi tive fluorescence exhibiting P-ANCA or C-ANCA patterns alone is not specific for the diagnosis of Marni's Granulomatosis (WG) or microscopic polyangiitis. Decisions about treatment should not be based solely on ANCA IFA results. The International ANCA Group Consensus recommends follow up testing of positive sera with both NE- 3 and MPO-ANCA enzyme immunoassays. As many as 5% serum samples are positive only by EIA. Ref. AM J Clin Pathol 1999;111:507-513. PROTEINASE 3 (PR3) ANTIBODIES <0.2 0.0 - 0.9 [facility] ANTI-CENTROMERE B ANTIBODIES on 12-07-2023 ANTI-CENTROMERE B ANTIBODIES <0.2 0.0 - 0.9 [facility] Comment on above: Performed at: [address] [id number] Loading Checker: Yuri Osullivan PhD, Phone: [phone] ANTI-DSDNA(DBL)ABon 12-07-19 ANTI-DSDNA(DBL)AB 1 0 - 9 [facility] Comment on above: Negative <5 Equivocal 5 - 9 Positive >9 ANTI-RNPon 12-07-2023 ANTI-MILITARY EDUCATION COORDINATOR 0.3 0.0 - 0.9 [facility] ANTIRIBOSOMAL P ANTIBODIESon 12-07-2023 ANTIRIBOSOMAL P ANTIBODIES <0.2 0.0 - 0.9 [facility] Anti-Fritz antibodyon 2023 ANTI-FRITZ ANTIBODIES <0.2 0.0 - 0.9 [facility] HISTONE ANTIBODIESon 024 HISTONE ANTIBODIES 0.6 0.0 - 0.9 [facility] Comment on above: Negative <1.0 Weak Positive 1.0 - 1.5 Moderate Positive 1.6 - 2.5 Strong Positive >2.5 Performed at: [address] [id number] Loading Checker: Christine Pham MD, Phone: [phone] SUSHMA-1 ANTIBODYon 12-07-2023 SUSHMA-1 ANTIBODY <0.2 0.0 - 0.9 [facility] Mitochondrial antibodies, M2 on 12-07-2023 MITOCHONDRIAL (M2) ANTIBODY <20.0 0.0 - 20.0 [facility] Comment on above: Negative 0.0 - 20.0 Equivocal 20.1 - 24.9 Positive >24.9 Mitochondrial (M2) Antibodies are found in 90-96% of patients with primary biliary cirrhosis. Performed at: [address] [id number] Loading Checker: Yuri Osullivan PhD, Phone: [phone] No Panel Informationon 12-06 [facility] SCLERODERMA 70 ANTIBODIESon 08-10-2024 SCLERODERMA 70 ANTIBODIES <0.2 0.0 - 0.9 [facility] SJOGRENS ANTI-SSA/SSBon 11-27 SS-A/RO SJOGRENS ANTIBODY <0.2 0.0 - 0.9 [facility] SS-B/LA SJOGRENS ANTIBODY <0.2 0.0 - 0.9 [facility] SRP AUTOANTIBODIESon 024 SRP (SIGNAL RECOG. PARTICLE) Negative Negative [facility] Comment on above: This test was develo ped and its performance characteristics determined by [facility]. It has not been cleared or approved by the Food and Drug Administration. Performed at: [facility] [address] [place] [id number] Loading Checker: Juan Cruz MD, Phone: [phone] Alanine aminotransferase [En zymatic activity/volume] in Serum or PlasmaOrdered By: Tolu Salinas on 12-02-2023 ALT [Catalytic activity/Vol] 31 U/L Normal 7-52 [facility] Comment on above: Performed By: #### C MP, MG ####[facility] [id number] [place] [id number] [facility] Albumin [Mass/volume] in Ser um or Plasma by Bromocresol green (BCG) dye binding methoOrdered By: Tolu Salinas on 12-02-2023 Albumin BCG dye [Mass/Vol] 4.2 g/dL 3.5-5.7 [facility] Alkaline phosphatase [Enzyma tic activity/volume] in Serum or PlasmaOrdered By: Tolu Salinsa on 12-02-2023 ALP [Catalytic activity/Vol] 75 U/L Normal 34-104 [facility] Comment on above: Performed By: #### C MP, MG ####[facility] [address] [place] [address] [place] [employer] 12-02-2023 Arsenic 2 Normal 0-9 [facility] Comment on above: Result Comment: This test was developed and its performance characteristics determined by [facility]. It has not been cleared or approved by the Food and Drug Administration. Detection Limit = 1 Performed By: #### H IV SCREEN, LEAD,ADULT, CRYOGLOB, MERCURY, HEPACUTE, C3, THALLIUM, ARSENIC, VITA, ZINC,WB, CERULOP, C4, CU ####[facility] ,#### MISC LAB, LDH ####[place] [id number] [address] Aspartate aminotransferase [ Enzymatic activity/volume] in Serum or PlasmaOrdered By: Tolu Salinas on 12-02-2023 AST [Catalytic activity/Vol] 37 U/L Normal 13-39 [facility] Comment on above: Performed By: #### C MP, MG ####[facility] Basophil percentageOrdered B y: Oz Kincaid on 12-02-2023 Basophil percentage 96 ug/dL 80-158 [facility] Comment on above: This test was develo ped and its performance characteristicsdetermined by [facility]. It has not been cleared orapproved by the Food and Drug Administration. Detection Limit = 5Performed at: [facility] [address] [id number] Director: Christine Pham MD, Phone: [phone] Basophil percentage 2 ug/L 0-9 [facility] Comment on above: This test was develo ped and its performance characteristicsdetermined by [facility]. It has not been cleared orapproved by the Food and Drug Administration. Detection Limit = 1 Bilirubin.total [Mass/volume ] in Serum or PlasmaOrdered By: Tolu Salinas on 12-02-2023 Bilirubin [Mass/Vol] 0.4 mg/dL Normal 0.3-1.0 [facility] Comment on above: Performed By: #### C MP, MG ####[place] [address] [place] [id number] [facility] Blood lead detectionOrdered By: Oz Codi on 12-02-2023 Lead Ql (Bld) <1.0 ug/dL 0.0-3.4 [facility] Comment on above: Testing performed by Inductively coupled plasma/MassSpectrometry.Analysis by inductively coupled plasma/massspectrometry (ICP/MS)This test was developed and its performance characteristicsdetermined by [facility]. It has not been cleared orapproved by the Food and Drug Administration. Environmental Exposure: WHO Recommendation <5.0 Occupational Exposure: OSHA Lead Std 40.0 BOB 30.0 Detection Limit = 1.0Performed at: [facility] [id number] Director: Yuri Osullivan PhD, Phone: [phone] Blood mercury measurement (m ass/volume)Ordered By: Oz Kincaid on 12-02-2023 Mercury (Bld) [Mass/Vol] <1.0 ug/L 0.0-14.9 [facility] Comment on above: This test was develo ped and its performance characteristicsdetermined by [facility]. It has not been cleared orapproved by the Food and Drug Administration. Detection Limit = 1.0Performed at: [facility] [id number] Director: Christine Pham MD, Phone: [phone] Calcium [Mass/volume] in Ser um or PlasmaOrdered By: Tolu Salinas on 12-02-2023 Calcium [Mass/Vol] 9.9 mg/dL Normal 8.6-10.3 [facility] Comment on above: Performed By: #### C MP, MG ####[facility] [id number] Carbon dioxide, total [Moles /volume] in Serum or PlasmaOrdered By: Tolu Salinas on 12-02-2023 CO2 [Moles/Vol] 32.0 mmol/L High 21.0-31.0 [facility] Comment on above: Performed By: #### C MP, MG ####[facility] Tjv[address] [place] [id number] [facility] Ceruloplasminon 12-02-2023 Ceruloplasmin 26.8 mg/dL Normal 19.0-39.0 [facility] Comment on above: Result Comment: Perf ormed at: [facility] [address] [id number] Loading Checker: Yuri Osullivan PhD, Phone: [phone] BY:[address]ETCHINYERE [place] [phone] MEDICAL DIRECTORSADAF STANTON M.D. Performed By: #### H IV SCREEN, LEAD,ADULT, CRYOGLOB, MERCURY, HEPACUTE, C3, THALLIUM, ARSENIC, VITA, ZINC,WB, CERULOP, C4, CU ####[facility] ,#### MISC LAB, LDH ####[address] Chloride [Moles/volume] in S elliot or PlasmaOrdered By: Tolu Salinas on 12-02-2023 Chloride [Moles/Vol] 103 mmol/L Normal 98-107 [facility] Comment on above: Performed By: #### C MP, MG ####[address] Complement C3on 12-02-2023 Complement C3 147 mg/dL Normal 82-167 [facility] Comment on above: Result Comment: Perf ormed at: CB - [facility] [address] [id number] Loading Checker: Yuri Osullivan PhD, Phone: [phone] Performed By: #### H IV SCREEN, LEAD,ADULT, CRYOGLOB, MERCURY, HEPACUTE, C3, THALLIUM, ARSENIC, VITA, ZINC,WB, CERULOP, C4, CU ####[facility] ,#### MISC LAB, LDH ####[place] [id number] [facility] Complement C4on 12-02-2023 Complement C4 32 mg/dL Normal 12-38 [facility] Comment on above: Performed By: #### H IV SCREEN, LEAD,ADULT, CRYOGLOB, MERCURY, HEPACUTE, C3, THALLIUM, ARSENIC, VITA, ZINC,WB, CERULOP, C4, CU ####[facility] ,#### MISC LAB, LDH ####[address] Comprehensive Metabolic Pane juan 12-02-2023 Albumin [Mass/Vol] 4.2 g/dL Normal 3.5-5.7 [facility] Comment on above: Performed By: #### C MP, MG ####[place] [address] [place] [id number] [facility] GFR/1.73 sq M.predicted MDRD (S/P/Bld) [Vol rate/Area] mL/min/{1.73_m2} Normal [facility] Comment on above: Performed By: #### C MP, MG ####[place] [address] [place] [id number] [facility] Copperon 12-02-2023 Copper 96 ug/dL Normal 80-158 [facility] Comment on above: Result Comment: This test was developed and its performance characteristics determined by [facility]. It has not been cleared or approved by the Food and Drug Administration. Detection Limit = 5 Performed at: - [facility] [id number] Loading Checker: Christine Pham MD, Phone: [phone] Performed By: #### H IV SCREEN, LEAD,ADULT, CRYOGLOB, MERCURY, HEPACUTE, C3, THALLIUM, ARSENIC, VITA, ZINC,WB, CERULOP, C4, CU ####[facility] ,#### MISC LAB, LDH ####[place] [address] [address] Creatinine [Mass/volume] in Serum or PlasmaOrdered By: Tolu Salinas on 12-02-2023 Creatinine [Mass/Vol] 0.97 mg/dL Normal 0.60-1.20 [facility] Comment on above: Performed By: #### C MP, MG ####[address] Cryoglobulin with Quant Refl exon 12-02-2023 Cryoglobulin, Ql, Serum Comment Normal None detected [facility] Comment on above: Result Comment: None Detected at 72 hours This test was developed and its performance characteristics determined by [facility]. It has not been cleared or approved by the Food and Drug Administration. Performed at: [facility] [id number] Loading Checker: Yuri Osullivan PhD, Phone: [phone] Performed By: #### H IV SCREEN, LEAD,ADULT, CRYOGLOB, MERCURY, HEPACUTE, C3, THALLIUM, ARSENIC, VITA, ZINC,WB, CERULOP, C4, CU ####[facility] ,#### MISC LAB, LDH ####[place] [address] [address] Glucose [Mass/volume] in Ser um or PlasmaOrdered By: Tolu Salinas on 12-02-2023 Glucose [Mass/Vol] 114 mg/dL High 70-100 [facility] Comment on above: ADA recommended refe rence rangeRandom Glucose Reference Range is dependent on time and content of last meal. Glucose of more than 200 mg/dL in a nonstressed, ambulatory subject supports the diagnosis of Diabetes Mellitus. Result Comment: [employer] om Glucose Reference Range is dependent on time and content of last meal. Glucose of more than 200 mg/dL in a nonstressed, ambulatory subject supports the diagnosis of Diabetes Mellitus. ADA recommended reference range Performed By: #### C MP, MG ####[place] [address] [address] HIV 1/O/2 Antigen/Antibodyon 12-02-2023 HIV Screen 4th Generation Non-Reactive Normal Non Reactive [facility] Comment on above: Result Comment: HIV- 1/HIV-2 antibodies and HIV-1 p24 antigen were NOT detected. There is no laboratory evidence of HIV infection. HIV Negative Performed at: - [facility] [address] [id number] Loading Checker: Yuri Osullivan PhD, Phone: [phone] Performed By: #### H IV SCREEN, LEAD,ADULT, CRYOGLOB, MERCURY, HEPACUTE, C3, THALLIUM, ARSENIC, VITA, ZINC,WB, CERULOP, C4, CU ####[facility] ,#### MISC LAB, LDH ####[facility] [id number] [facility] HIV 1 and HIV-2 antibody ass ay with HIV-1 p24 antigen detectionOrdered By: Oz Kincaid on 12-02-2023 HIV 1+2 Ab+HIV1 p24 Ag IA Ql Non-Reactive Non Reactive [facility] Comment on above: HIV-1/HIV-2 antibodi es and HIV-1 p24 antigen were NOTdetected. There is no laboratory evidence of HIV infection.HIV NegativePerformed at: - [facility] [address] [id number] Director: Yuri Osullivan PhD, Phone: [phone] Hepatitis Acute Panelon HBsAg Screen Negative Normal Negative [facility] Comment on above: Performed By: #### H IV SCREEN, LEAD,ADULT, CRYOGLOB, MERCURY, HEPACUTE, C3, THALLIUM, ARSENIC, VITA, ZINC,WB, CERULOP, C4, CU ####[facility] ,#### MISC LAB, LDH ####[address] Hepatitis A Antibody IgM Negative Normal Negative [facility] Comment on above: Performed By: #### H IV SCREEN, LEAD,ADULT, CRYOGLOB, MERCURY, HEPACUTE, C3, THALLIUM, ARSENIC, VITA, ZINC,WB, CERULOP, C4, CU ####[facility] ,#### MISC LAB, LDH ####[address] Hepatitis B Core Antibody IgM Negative Normal Negative [facility] Comment on above: Performed By: #### H IV SCREEN, LEAD,ADULT, CRYOGLOB, MERCURY, HEPACUTE, C3, THALLIUM, ARSENIC, VITA, ZINC,WB, CERULOP, C4, CU ####[facility] ,#### MISC LAB, LDH ####[address] Hepatitis C Virus Antibody Non-Reactive Normal Non Reactive [facility] Comment on above: Performed By: #### H IV SCREEN, LEAD,ADULT, CRYOGLOB, MERCURY, HEPACUTE, C3, THALLIUM, ARSENIC, VITA, ZINC,WB, CERULOP, C4, CU ####[facility] ,#### MISC LAB, LDH ####[address] Interpretation Hepatitis C Comment Normal . [facility] Comment on above: Result Comment: Not infected with HCV unless early or acute infection is suspected (which may be delayed in an immunocompromised individual), or other evidence exists to indicate HCV infection. Performed at: - [facility] [address] [id number] Loading Checker: Yuri Osullivan PhD, Phone: [phone] BY:[address] [place], [place] [phone] MEDICAL DIRECTORSADAF STANTON M.D. Performed By: #### H IV SCREEN, LEAD,ADULT, CRYOGLOB, MERCURY, HEPACUTE, C3, THALLIUM, ARSENIC, VITA, ZINC,WB, CERULOP, C4, CU ####[facility] ,#### MISC LAB, LDH ####[address] Hepatitis B virus surface Ag [Presence] in Serum or Plasma by ImmunoassayOrdered By: Oz Kincaid on 12-02-2023 HBV surface Ag IA Ql Negative Negative [facility] Hepatitis C virus IgG Ab [Pr esence] in Serum or Plasma by ImmunoassayOrdered By: Oz Kincaid on 12-02-2023 HCV IgG IA Ql Non-Reactive Non Reactive [facility] Hepatitis C virus RNA [Units /volume] (viral load) in Serum or Plasma by TEJINDER with probOrdered By: Oz Kincaid on 12-02-2023 HCV RNA TEJINDER+probe Qn N/A [facility] Hepatitis C virus RNA [log u nits/volume] (viral load) in Serum or Plasma by TEJINDER withOrdered By: Oz Kincaid on 12-02-2023 HCV RNA TEJINDER+probe [Log units/Vol] N/A [facility] LDH Lactate Dehydrogenaseon 12-02-2023 LDH Lactate Dehydrogenase 156 U/L Normal 140-271 [facility] Comment on above: Result Comment: PERF ORMED BY:[facility] [place] [address] [place], [place] [phone] MEDICAL DIRECTORSADAF STANTON M.D. Performed By: #### H IV SCREEN, LEAD,ADULT, CRYOGLOB, MERCURY, HEPACUTE, C3, THALLIUM, ARSENIC, VITA, ZINC,WB, CERULOP, C4, CU ####[facility] ,#### MISC LAB, LDH ####[address] [place] [id number] [facility] Lactate dehydrogenase [Enzym atic activity/volume] in Serum or Plasma by Lactate to pyOrdered By: Oz Kincaid on 12-02-2023 LDH Lactate to pyruvate reaction [Catalytic activity/Vol] 156 U/L 140-271 [facility] Lead, Adulton 12-02-2023 Lead-Adult Blood <1.0 Normal 0.0-3.4 [facility] Comment on above: Result Comment: Test ing performed by Inductively coupled plasma/Mass Spectrometry. Analysis by inductively coupled plasma/mass spectrometry (ICP/MS) This test was developed and its performance characteristics determined by [facility]. It has not been cleared or approved by the Food and Drug Administration. Environmental Exposure: WHO Recommendation <5.0 Occupational Exposure: OSHA Lead Std 40.0 BOB 30.0 Detection Limit = 1.0 Performed at: [address] [id number] Loading Checker: Yuri Osullivan PhD, Phone: [phone] Performed By: #### H IV SCREEN, LEAD,ADULT, CRYOGLOB, MERCURY, HEPACUTE, C3, THALLIUM, ARSENIC, VITA, ZINC,WB, CERULOP, C4, CU ####[facility] ,#### MISC LAB, LDH ####[address] [address] [address] [place] [id number] [facility] Normal [facility] Comment on above: Order Comment: [facility] Test Name: MOTOR AND SENSORY NEUROPATHY PANEL WITH REFLEX TO ARUP [id number] Result Comment: See report. Scanned copy available in EMR.PERFORMED BY:[address] [address] [address] [place], [place] [phone] MEDICAL DIRECTORSADAF STANTON M.D. Performed By: #### H IV SCREEN, LEAD,ADULT, CRYOGLOB, MERCURY, HEPACUTE, C3, THALLIUM, ARSENIC, VITA, ZINC,WB, CERULOP, C4, CU ####[facility] ,#### MISC LAB, LDH ####[address] [address] [facility] MISC2 LABon 12-02-2023 MISC2 LAB Normal [facility] Comment on above: Order Comment: Misc 2 Test Name: [place] LC [id number] Result Comment: See report. Scanned copy available in EMR.PERFORMED BY:[address] [address] [address] [place]URELMitziKenisha[place], [place] [phone] MEDICAL GEENA STANTON M.D. Performed By: #### M ISC2 LAB ####[address] [address] [facility] Magnesium [Mass/volume] in S elliot or PlasmaOrdered By: Tolu Salinas on 12-02-2023 Magnesium [Mass/Vol] 2.0 mg/dL Normal 1.9-2.7 [facility] Comment on above: Result Comment: PERF ORMED BY:[address] [place], [place] [phone] MEDICAL DIRECTORSADAF STANTON M.D. Performed By: #### C MP, MG ####[address] [address] [facility] Mercury Bloodon 12-02-2023 Mercury, Blood <1.0 Normal 0.0-14.9 [facility] Comment on above: Result Comment: This test was developed and its performance characteristics determined by [facility]. It has not been cleared or approved by the Food and Drug Administration. Detection Limit = 1.0 Performed at: [address] [id number] Loading Checker: Christine Pham MD, Phone: [phone] Performed By: #### H IV SCREEN, LEAD,ADULT, CRYOGLOB, MERCURY, HEPACUTE, C3, THALLIUM, ARSENIC, VITA, ZINC,WB, CERULOP, C4, CU ####[facility] ,#### MISC LAB, LDH ####[facility] [id number] No Panel InformationOrdered By: Oz Kincaid on 12-02-2023 Miscellaneous Test 2 See comment [facility] Comment on above: See report. Scanned copy available in EMR. Hepatitis A IgM Antibody Negative Negative [facility] Hepatitis B Core IgM Antibody Negative Negative [facility] Hepatitis C Interpretation Comment . [facility] Comment on above: Not infected with HC V unless early or acute infection issuspected (which may be delayed in an immunocompromisedindividual), or other evidence exists to indicate HCVinfection.Performed at: [facility] [id number] Director: Yuri Osullivan PhD, Phone: [phone] Miscellaneous Test See comment [facility] Comment on above: See report. Scanned copy available in EMR. Whole Blood Zinc 768 ug/dL 440-860 [facility] Comment on above: This test was develo ped and its performance characteristicsdetermined by [facility]. It has not been cleared orapproved by the Food and Drug Administration.Performed at: - [facility] [id number] Director: Christine Pham MD, Phone: [phone] No Panel InformationOrdered By: Tolu Salinas on 12-02-2023 Estimated GFR (CKD-EPI) > 60.0 mL/Min [facility] Creatinine Clearance (Chem N/A [facility] Potassium [Moles/volume] in Serum or PlasmaOrdered By: Tolu Salinas on 12-02-2023 Potassium [Moles/Vol] 4.5 mmol/L Normal 3.5-5.1 [facility] Comment on above: Performed By: #### C MP, MG ####[facility] [id number] [address] Protein [Mass/volume] in Ser um or PlasmaOrdered By: Tolu Salinas on 12-02-2023 Protein [Mass/Vol] 6.9 g/dL Normal 6.4-8.9 [facility] Comment on above: Performed By: #### C MP, MG ####[address] [id number] [address] Serum angiotensin converting enzyme (VITA) measurementOrdered By: Oz Kincaid on 12-02-2023 Angiotensin converting enzyme [Catalytic activity/Vol] 53 U/L Normal 14-82 [facility] Comment on above: Performed at: [place] [address]Lab Director: Yuri Osullivan PhD, Phone: [phone] Result Comment: Perf ormed at: [facility] [address] [place] [address] Loading Checker: Yuri Osullivan PhD, Phone: [facility] Performed By: #### H IV SCREEN, LEAD,ADULT, CRYOGLOB, MERCURY, HEPACUTE, C3, THALLIUM, ARSENIC, VITA, ZINC,WB, CERULOP, C4, CU ####[facility] ,#### MISC LAB, LDH ####[address] Serum cryoglobulin detection Ordered By: Oz Kincaid on 12-02-2023 Cryoglobulin Ql (S) Comment None detected [facility] Comment on above: None Detected at 72 hoursThis test was developed and its performance characteristicsdetermined by [facility]. It has not been cleared orapproved by the Food and Drug Administration.Performed at: [employer] [facility] [id number] Director: Yuri Osullivan PhD, Phone: [phone] Serum globulin measurement b y calculation (mass/volume)Ordered By: Tolu Salinas on 12-02-2023 Globulin (S) [Mass/Vol] 2.7 g/dL Normal F [facility] Comment on above: Performed By: #### C MP, MG ####[facility] Its[address] Serum or plasma albumin/glob ulin mass ratioOrdered By: Tolu Sailnas on 12-02-2023 Albumin/Globulin [Mass ratio] 1.6 {ratio} Normal [facility] Comment on above: Performed By: #### C MP, MG ####[place] [address] Serum or plasma anion gap de terminationOrdered By: Tolu Salinas on 12-02-2023 Anion gap [Moles/Vol] 8.5 mmol/L Normal 6.0-15.0 [facility] Comment on above: Performed By: #### C MP, MG ####[place] [address] Serum or plasma ceruloplasmi n measurement (mass/volume)Ordered By: Oz Kincaid on 12-02-2023 Ceruloplasmin [Mass/Vol] 26.8 mg/dL 19.0-39.0 [facility] Comment on above: Performed at: [facility] [address] Director: Yuri Osullivan PhD, Phone: [phone] Serum or plasma complement C 3 measurement (mass/volume)Ordered By: Oz Kincaid on 12-02-2023 Complement C3 [Mass/Vol] 147 mg/dL 82-167 [facility] Comment on above: Performed at: [facility] Director: Yuri Osullivan PhD, Phone: [phone] Serum or plasma complement C 4 measurement (mass/volume)Ordered By: Oz Kincaid on 12-02-2023 Complement C4 [Mass/Vol] 32 mg/dL 12-38 [facility] Sodium [Moles/volume] in Ser um or PlasmaOrdered By: Tolu Salinas on 12-02-2023 Sodium [Moles/Vol] 139 mmol/L Normal 136-145 [facility] Comment on above: Performed By: #### C MP, MG ####[address] [address] [address] [place] [id number] [facility] Thalliumon 12-02-2023 Thallium <1.0 Normal <5.0 [facility] Comment on above: Result Comment: Thal lium concentrations greater than 300 ng/ml are consistent with acute toxicity. Urine is the preferred specimen for assessment of thallium exposure. Thallium analysis performed by inductively coupled plasma / mass spectrometry (ICP/MS). This test was developed and its performance characteristics determined by [facility]. It has not been cleared or approved by the Food and Drug Administration. Performed at: [employer] [address] [place] [id number] Loading Checker: Whitney Arevalo [facility], Phone: [phone] BY:[address] [address] [place], [place] [phone] MEDICAL DIRECTORSADAF STANTON M.D. Performed By: #### H IV SCREEN, LEAD,ADULT, CRYOGLOB, MERCURY, HEPACUTE, C3, THALLIUM, ARSENIC, VITA, ZINC,WB, CERULOP, C4, CU ####[facility] ,#### MISC LAB, LDH ####[facility] [id number] [place] [address] [facility] Thallium [Mass/volume] in Se rum or PlasmaOrdered By: Oz Kincaid on 12-02-2023 Thallium [Mass/Vol] <1.0 ng/mL <5.0 [facility] Comment on above: Thallium concentrati ons greater than 300 ng/ml are consistent with acute toxicity. Urine is the preferred specimen for assessment of thallium exposure. Thallium analysis performed by inductively coupled plasma / mass spectrometry (ICP/MS).This test was developed and its performance characteristicsdetermined by [facility]. It has not been cleared or approvedby the Food and Drug Administration.Performed at: [facility] [place] [address] [id number] Director: Whitney Arevalo [facility], Phone: [phone] Urea nitrogen [Mass/volume] in Serum or PlasmaOrdered By: Tolu Salinas on 12-02-2023 Urea nitrogen [Mass/Vol] 11 mg/dL Normal 7-25 [facility] Comment on above: Performed By: #### C MP, MG ####[facility] [id number] [place] [address] [facility] Zinc, Whole Bloodon 12-02-19 24 Zinc, Whole Blood 768 ug/dL Normal 440-860 [facility] Comment on above: Result Comment: This test was developed and its performance characteristics determined by [facility]. It has not been cleared or approved by the Food and Drug Administration. Performed at: - [facility] [id number] Loading Checker: Christine Pham MD, Phone: [phone] Performed By: #### H IV SCREEN, LEAD,ADULT, CRYOGLOB, MERCURY, HEPACUTE, C3, THALLIUM, ARSENIC, VITA, ZINC,WB, CERULOP, C4, CU ####[facility] ,#### MISC LAB, LDH ####[facility] [id number] [id number] [facility] LACTATE AND PYRUVATEon 11-27 Interpretation and review of laboratory results Abnormal [facility] LACTIC ACID, PLASMA 27.1 mg/dL High 4.8 - 25 .7 mg/dL [facility] PYRUVIC ACID, BLOOD 0.7 mg/dL 0.3 - 0. 7 mg/dL [facility] Comment on above: This test was develo ped and its performance characteristics determined by [facility]. It has not been cleared or approved by the Food and Drug Administration. Performed at: [facility] [id number] Loading Checker: Yuri Osullivan PhD, Phone: [phone] Performed at: [address] [id number] Loading Checker: Christine Pham MD, Phone: [phone] [facility] BEATRICE Antinuclear Antibodieson 11-26-2023 Antinuclear Abs, IFA Positive Critically abnormal . [facility] Comment on above: Result Comment: Nega tive <1:80 Borderline 1:80 Positive >1:80 Performed By: #### A NCA PROF, CENTROME, ANTIR, ANTIRIBOSOMAL P, ADNA, BEATRICE, [id number], JO1, SJOGRENS, FRITZ, SRP AUTOABS, HISAB, MITOM2 ####[facility] , Note 1 Comment Normal . [facility] Comment on above: Result Comment: Gayatri kaufman Potential Disease Association Homogeneous Systemic Lupus Erythematosus, Drug Induced Systemic Lupus Erythematosus, Chronic Autoimmune hepatitis, Juvenile Idiopathic Arthritis Speckled Sjogren Syndrome, Systemic Lupus Erythematosus, Subacute Cutaneous Lupus, Lupus, Congenital Heart Block, Mixed Connective Tissue Disease, Scleroderma-diffuse, Scleroderma-Autoimmune Myositis Overlap Syndrome, Systemic Lupus Obqmgxlbxkzkj-Wvzugdbkqby-Vvptxxtuyj Myositis Overlap Syndrome, Systemic Autoimmune Rheumatic Disease, [...] Cytopenias, Linear Scleroderma, Antiphospholipid Syndrome Performed at: [facility] [id number] Loading Checker: Yuri Osullivan PhD, Phone: [phone] Performed By: #### A NCA PROF, CENTROME, ANTIR, ANTIRIBOSOMAL P, ADNA, BEATRICE, [id number], JO1, SJOGRENS, FRITZ, SRP AUTOABS, HISAB, MITOM2 ####[facility] , Speckled Pattern 1:320 High . [facility] Comment on above: Result Comment: ICAP nomenclature: [id number],4,5,29 Performed By: #### A NCA PROF, CENTROME, ANTIR, ANTIRIBOSOMAL P, ADNA, BEATRICE, [id number], JO1, SJOGRENS, FRITZ, SRP AUTOABS, HISAB, MITOM2 ####[facility] , ANCA Profile (ANCA+MPO+PR3)o n 11-26-2023 Antimyeloperoxidase (MPO) Abs <0.2 Normal 0.0-0.9 [facility] Comment on above: Performed By: #### A NCA PROF, CENTROME, ANTIR, ANTIRIBOSOMAL P, ADNA, BEATRICE, [id number], JO1, SJOGRENS, FRITZ, SRP AUTOABS, HISAB, MITOM2 ####[facility] , Atypical pANCA <1:20 Normal Neg:<1:20 [facility] Comment on above: Result Comment: The atypical pANCA pattern has been observed in a significant percentage of patients with ulcerative colitis, primary sclerosing cholangitis and autoimmune hepatitis. Performed at: - [address] [id number] Loading Checker: Christine Pham MD, Phone: [phone] Performed at: [facility] [id number] Loading Checker: Yuri Osullivan PhD, Phone: [phone] Performed By: #### A NCA PROF, CENTROME, ANTIR, ANTIRIBOSOMAL P, ADNA, BEATRICE, [id number], JO1, SJOGRENS, FRITZ, SRP AUTOABS, HISAB, MITOM2 ####[facility] , Cytoplasmic (C-ANCA) <1:20 Normal Neg:<1:20 [facility] Comment on above: Performed By: #### A NCA PROF, CENTROME, ANTIR, ANTIRIBOSOMAL P, ADNA, BEATRICE, [id number], JO1, SJOGRENS, FRITZ, SRP AUTOABS, HISAB, MITOM2 ####[facility] , Perinuclear (P-ANCA) <1:20 Normal Neg:<1:20 [facility] Comment on above: Result Comment: The presence of positive fluorescence exhibiting P-ANCA or C-ANCA patterns alone is not specific for the diagnosis of Marni's Granulomatosis (WG) or microscopic polyangiitis. Decisions about treatment should not be based solely on ANCA IFA results. The International ANCA Group Consensus recommends follow up testing of positive sera with both NE- 3 and MPO-ANCA enzyme immunoassays. As many as 5% serum samples are positive only by EIA. Ref. AM J Clin Pathol 1999;111:507-513. Performed By: #### A NCA PROF, CENTROME, ANTIR, ANTIRIBOSOMAL P, ADNA, BEATRICE, [id number], JO1, SJOGRENS, FRITZ, SRP AUTOABS, HISAB, MITOM2 ####[facility] , Proteinase 3 (PR3) Antibodies <0.2 Normal 0.0-0.9 [facility] Comment on above: Performed By: #### A NCA PROF, CENTROME, ANTIR, ANTIRIBOSOMAL P, ADNA, BEATRICE, [id number], JO1, SJOGRENS, FRITZ, SRP AUTOABS, HISAB, MITOM2 ####[facility] , Anti-Centromere B Antibodies on 11-26-2023 Anti-Centromere B Antibodies <0.2 Normal 0.0-0.9 [facility] Comment on above: Result Comment: Perf ormed at: - [facility] [address] [id number] Loading Checker: Yuri Osullivan PhD, Phone: [phone] Performed By: #### A NCA PROF, CENTROME, ANTIR, ANTIRIBOSOMAL P, ADNA, BEATRICE, [id number], JO1, SJOGRENS, FRITZ, SRP AUTOABS, HISAB, MITOM2 ####[facility] , Anti-RNPon 11-26-2023 Anti-MILITARY EDUCATION COORDINATOR 0.3 Normal 0.0-0.9 [facility] Comment on above: Performed By: #### A NCA PROF, CENTROME, ANTIR, ANTIRIBOSOMAL P, ADNA, BEATRICE, [id number], JO1, SJOGRENS, FRITZ, SRP AUTOABS, HISAB, MITOM2 ####[facility] , Anti-Fritz Antibodieson 10-29 Anti-Fritz Antibodies <0.2 Normal 0.0-0.9 [facility] Comment on above: Performed By: #### A NCA PROF, CENTROME, ANTIR, ANTIRIBOSOMAL P, ADNA, BEATRICE, [id number], JO1, SJOGRENS, FRITZ, SRP AUTOABS, HISAB, MITOM2 ####[facility] , Anti-dsDNA(DBL)Abon 11-26-19 24 Anti-dsDNA(DBL)Ab 1 Normal 0-9 [facility] Comment on above: Result Comment: Nega tive <5 Equivocal 5 - 9 Positive >9 Performed By: #### A NCA PROF, CENTROME, ANTIR, ANTIRIBOSOMAL P, ADNA, BEATRICE, [id number], JO1, SJOGRENS, FRITZ, SRP AUTOABS, HISAB, MITOM2 ####[facility] , Antiribosomal P Antibodieson 11-26-2023 Antiribosomal P Antibodies <0.2 Normal 0.0-0.9 [facility] Comment on above: Performed By: #### A NCA PROF, CENTROME, ANTIR, ANTIRIBOSOMAL P, ADNA, BEATRICE, [id number], JO1, SJOGRENS, FRITZ, SRP AUTOABS, HISAB, MITOM2 ####[facility] , DNA double strand Ab [Units/ volume] in SerumOrdered By: Oz Kincaid on 11-26-2023 DNA double strand Ab Qn (S) 1 [IU]/mL 0-9 [facility] Comment on above: Negative <5 Equivoca l 5 - 9 Positive >9 Histone Antibodieson 024 Histone Antibodies 0.6 Normal 0.0-0.9 [facility] Comment on above: Result Comment: Nega tive <1.0 Weak Positive 1.0 - 1.5 Moderate Positive 1.6 - 2.5 Strong Positive >2.5 Performed at: - [address] [id number] Loading Checker: Christine Pham MD, Phone: [phone] Performed By: #### A NCA PROF, CENTROME, ANTIR, ANTIRIBOSOMAL P, ADNA, BEATRICE, [id number], JO1, SJOGRENS, FRITZ, SRP AUTOABS, HISAB, MITOM2 ####[facility] , SUSHMA-1 Antibodyon 11-26-2023 SUSHMA-1 Antibody <0.2 Normal 0.0-0.9 [facility] Comment on above: Performed By: #### A NCA PROF, CENTROME, ANTIR, ANTIRIBOSOMAL P, ADNA, BEATRICE, [id number], JO1, SJOGRENS, FRITZ, SRP AUTOABS, HISAB, MITOM2 ####[facility] , Lactate and Pyruvateon 11-25 Lactic Acid, Plasma 27.1 mg/dL High 4.8-25.7 [facility] Comment on above: Performed By: #### L ACTATE PYRUVAT ####[facility] , Pyruvic Acid, Blood 0.7 mg/dL Normal 0.3-0.7 [facility] Comment on above: Result Comment: This test was developed and its performance characteristics determined by [facility]. It has not been cleared or approved by the Food and Drug Administration. Performed at: [address] [id number] Loading Checker: Yuri Osullivan PhD, Phone: [phone] Performed at: [address] [id number] Loading Checker: Christine Pham MD, Phone: [phone] BY:[place] [address] [place], [place] [phone] MEDICAL DIRECTORSADAF STANTON M.D. Performed By: #### L ACTATE PYRUVAT ####[facility] , Mitochondrial (M2) Antibodyo n 11-26-2023 Mitochondrial (M2) Antibody <20.0 Normal 0.0-20.0 [facility] Comment on above: Result Comment: Nega tive 0.0 - 20.0 Equivocal 20.1 - 24.9 Positive >24.9 Mitochondrial (M2) Antibodies are found in 90-96% of patients with primary biliary cirrhosis. Performed at: [address] [id number] Loading Checker: Yuri Osullivan PhD, Phone: [phone] Performed By: #### A NCA PROF, CENTROME, ANTIR, ANTIRIBOSOMAL P, ADNA, BEATRICE, [id number], JO1, SJOGRENS, FRITZ, SRP AUTOABS, HISAB, MITOM2 ####[facility] , Myeloperoxidase Ab [Units/vo lume] in Serum by ImmunoassayOrdered By: Oz Kincaid on 11-26-2023 Myeloperoxidase Ab IA Qn (S) <0.2 units 0.0-0.9 [facility] No Panel InformationOrdered By: Oz Kincaid on 11-26-2023 Anti-Nuclear Antibody Comment 2 Comment . [facility] Comment on above: Pattern Potential Di sease Association Homogeneous Systemic Lupus Erythematosus, Drug Induced Systemic Lupus Erythematosus, Chronic Autoimmune hepatitis, Juvenile Idiopathic Arthritis Speckled Sjogren Syndrome, Systemic Lupus Erythematosus, Subacute Cutaneous Lupus, Lupus, Congenital Heart Block, Mixed Connective Tissue Disease, Scleroderma-diffuse, Scleroderma-Autoimmune Myositis Overlap Syndrome, Systemic Lupus Eheuphwwgfumd-Isygcwqmrzz-Rmuqggwiwm Myositis Overlap Syndrome, Systemic Autoimmune Rheumatic Disease, [...] Cytopenias, Linear Scleroderma, Antiphospholipid Syndrome Performed at: [facility] [id number] Director: Yuri Osullivan PhD, Phone: [phone] Atypical p-ANCA <1:20 titer Neg:<1:20 [facility] Comment on above: The atypical pANCA p attern has been observed in asignificant percentage of patients with ulcerative colitis,primary sclerosing cholangitis and autoimmune hepatitis.Performed at: [facility] [id number] Director: Christine Pham MD, Phone: [phone] at: [facility] [id number] Director: Yuri Osullivan PhD, Phone: [phone] Perinuclear ANCA (p-ANCA) Antibody <1:20 titer Neg:<1:20 [facility] Comment on above: The presence of posi tive fluorescence exhibiting P-ANCA orC-ANCA patterns alone is not specific for the diagnosis ofWegener's Granulomatosis (WG) or microscopic polyangiitis.Decisions about treatment should not be based solely onANCA IFA results. The International ANCA Group Consensusrecommends follow up testing of positive sera with both NE-3 and MPO-ANCA enzyme immunoassays. As many as 5% serumsamples are positive only by EIA. Ref. AM J Clin Okxdio4821;111:507-513. Plasma Lactic Acid, Venous 27.1 mg/dL High 4.8-25.7 [facility] Pyruvic Acid 0.7 mg/dL 0.3-0.7 [facility] Comment on above: This test was devidaliao jonnie and its performance characteristicsdetermined by [facility]. It has not been cleared orapproved by the Food and Drug Administration.Performed at: - [facility] [id number] [place], [place] [id number] Director: Yuri Osullivan PhD, Phone: [phone] at: [facility] [id number] Director: Christine Pham MD, Phone: [phone] MILITARY EDUCATION COORDINATOR Antibody 0.3 AI 0.0-0.9 [facility] Scl-70 (Scleroderma) Antibody <0.2 AI 0.0-0.9 [facility] Signal Recognition Particle (SRP) Negative Negative [facility] Comment on above: This test was develo ped and its performance characteristicsdetermined by [facility]. It has not been cleared orapproved by the Food and Drug Administration.Performed at: [facility] [address] [place], [place] [id number] Director: Juan Cruz MD, Phone: [phone] Proteinase 3 Ab [Units/volum e] in Serum by ImmunoassayOrdered By: Oz Kincaid on 11-26-2023 Proteinase 3 Ab IA Qn (S) <0.2 units 0.0-0.9 [facility] Ribosomal P Ab [Units/volume ] in SerumOrdered By: Oz Kincaid on 11-26-2023 Ribosomal P Ab Qn (S) <0.2 AI 0.0-0.9 [facility] SRP Autoantibodieson 024 SRP (Signal Recog. Particle) Negative Normal Negative [facility] Comment on above: Result Comment: This test was developed and its performance characteristics determined by [facility]. It has not been cleared or approved by the Food and Drug Administration. Performed at: [facility] [address] [place], [place] [id number] Loading Checker: Juan Cruz MD, Phone: [phone] BY:[place] [address] [place] [place], [place] [phone] MEDICAL DIRECTORSADAF STANTON M.D. Performed By: #### A NCA PROF, CENTROME, ANTIR, ANTIRIBOSOMAL P, ADNA, BEATRICE, [id number], JO1, SJOGRENS, FRITZ, SRP AUTOABS, HISAB, MITOM2 ####[facility] , Scleroderma 70 Antibodieson 11-26-2023 Scleroderma 70 Antibodies <0.2 Normal 0.0-0.9 [facility] Comment on above: Performed By: #### A NCA PROF, CENTROME, ANTIR, ANTIRIBOSOMAL P, ADNA, BEATRICE, [id number], JO1, SJOGRENS, FRITZ, SRP AUTOABS, HISAB, MITOM2 ####[facility] , Serum Sushma-1 extractable nucle ar antibody assay (units/volume)Ordered By: Oz Kincaid on 11-26-2023 Sushma-1 extractable nuclear Ab Qn (S) <0.2 AI 0.0-0.9 [facility] Serum Sjogrens syndrome-A ex tractable nuclear antibody assay (units/volume)Ordered By: Oz Kincaid on 11-26-2023 Sjogrens syndrome-A extractable nuclear Ab Qn (S) <0.2 AI 0.0-0.9 [facility] Serum Sjogrens syndrome-B ex tractable nuclear antibody assay (units/volume)Ordered By: Oz Kincaid on 11-26-2023 Sjogrens syndrome-B extractable nuclear Ab Qn (S) <0.2 AI 0.0-0.9 [facility] Serum Fritz extractable nucl ear antigen (ARIELLE) antibody assay (units/volume)Ordered By: Oz Kincaid on 11-26-2023 Fritz extractable nuclear Ab Qn (S) <0.2 AI 0.0-0.9 [facility] Serum centromere protein B a ntibody assay (units/volume)Ordered By: Oz Kincaid on 11-26-2023 Centromere protein B Ab Qn (S) <0.2 AI 0.0-0.9 [facility] Comment on above: Performed at: [address] [id number] Director: Yuri Osullivan PhD, Phone: [phone] Serum classic neutrophil cyt oplasmic antibody titer by immunofluorescenceOrdered By: Oz Kincaid on 11-26-2023 Neutrophil cytoplasmic Ab.classic IF (S) [Titer] <1:20 titer Neg:<1:20 [facility] Serum histone IgG antibody a ssay by immunoassay (units/volume)Ordered By: Oz Kincaid on 11-26-2023 Histone IgG IA Qn (S) 0.6 Units 0.0-0.9 [facility] Comment on above: Negative <1.0 Weak P ositive 1.0 - 1.5 Moderate Positive 1.6 - 2.5 Strong Positive >2.5Performed at: - [address] [id number] Director: Christine Pham MD, Phone: [phone] Serum homogeneous pattern an tinuclear antibody (BEATRICE) titerOrdered By: Oz Kincaid on 11-26-2023 Homogenous nuclear Ab pattern (S) [Titer] N/A [facility] Serum mitochondria M2 IgG an tibody assay (units/volume)Ordered By: Oz Kincaid on 11-26-2023 Mitochondria M2 IgG Qn (S) <20.0 Units 0.0-20.0 [facility] Comment on above: Negative 0.0 - 20.0 Equivocal 20.1 - 24.9 Positive >24.9Mitochondrial (M2) Antibodies are found in 90-96% ofpatients with primary biliary cirrhosis.Performed at: - [facility] [id number] Director: Yuri Osullivan PhD, Phone: [phone] Serum nuclear antibody titer Ordered By: Oz Kincaid on 11-26-2023 Nuclear Ab (S) [Titer] Positive Abnormal . [facility] Comment on above: Negative <1:80 Borde rline 1:80 Positive >1:80 Serum speckled pattern antin uclear antibody (BEATRICE) titerOrdered By: Oz Kincaid on 11-26-2023 Speckled nuclear Ab pattern (S) [Titer] 1:320 High . [facility] Comment on above: ICAP nomenclature: A C-2,4,5,29 Sjogrens Anti-SSA/SSBon 10-29 SS-A/Ro Sjogrens Antibody <0.2 Normal 0.0-0.9 [facility] Comment on above: Performed By: #### A NCA PROF, CENTROME, ANTIR, ANTIRIBOSOMAL P, ADNA, BEATRICE, [id number], JO1, SJOGRENS, FRITZ, SRP AUTOABS, HISAB, MITOM2 ####[facility] , SS-B/La Sjogrens Antibody <0.2 Normal 0.0-0.9 [facility] Comment on above: Performed By: #### A NCA PROF, CENTROME, ANTIR, ANTIRIBOSOMAL P, ADNA, BEATRICE, [id number], JO1, SJOGRENS, FRITZ, SRP AUTOABS, HISAB, MITOM2 ####[facility] , Aspartate aminotransferase [ Enzymatic activity/volume] in Serum or PlasmaOrdered By: Jonas Ch on 11-15-2023 AST [Catalytic activity/Vol] 45 U/L High 13-39 [facility] Comment on above: Performed By: #### A TSH3, BMP ####[place] [address] [place] [id number] [facility] Basic Metabolic Panelon 10-27 GFR/1.73 sq M.predicted MDRD (S/P/Bld) [Vol rate/Area] mL/min/{1.73_m2} Normal [facility] Comment on above: Performed By: #### A TSH3, BMP ####[place] [address] [place] [id number] [facility] Calcium [Mass/volume] in Ser um or PlasmaOrdered By: Jonas Ch on 11-15-2023 Calcium [Mass/Vol] 10.7 mg/dL High 8.6-10.3 [facility] Comment on above: Performed By: #### A TSH3, BMP ####[facility] [place] [id number] [facility] Carbon dioxide, total [Moles /volume] in Serum or PlasmaOrdered By: Jonas Ch on 11-15-2023 CO2 [Moles/Vol] 27.7 mmol/L Normal 21.0-31.0 [facility] Comment on above: Performed By: #### A ST TSH3, BMP ####[facility] [place] [address] [place] Chloride [Moles/volume] in S elliot or PlasmaOrdered By: Jonas Ch on 11-15-2023 Chloride [Moles/Vol] 102 mmol/L Normal 98-107 [facility] Comment on above: Performed By: #### A ST TSH3, BMP ####[facility] [place] [address] [facility] Creatinine [Mass/volume] in Serum or PlasmaOrdered By: Jonas Ch on 11-15-2023 Creatinine [Mass/Vol] 1.02 mg/dL Normal 0.60-1.20 [facility] Comment on above: Performed By: #### A ST TSH3, BMP ####[place] [address] [place] [id number] [facility] Creatinine [Mass/volume] in UrineOrdered By: Angelique Russell on 11-15-2023 Creatinine (U) [Mass/Vol] 123.00 mg/dL [facility] Comment on above: No reference range e stablished Glucose [Mass/volume] in Ser um or PlasmaOrdered By: Jonas Ch on 11-15-2023 Glucose [Mass/Vol] 158 mg/dL High 70-100 [facility] Comment on above: ADA recommended refe rence rangeRandom Glucose Reference Range is dependent on time and content of last meal. Glucose of more than 200 mg/dL in a nonstressed, ambulatory subject supports the diagnosis of Diabetes Mellitus. Result Comment: [employer] om Glucose Reference Range is dependent on time and content of last meal. Glucose of more than 200 mg/dL in a nonstressed, ambulatory subject supports the diagnosis of Diabetes Mellitus. ADA recommended reference range Performed By: #### A , TSH3, BMP ####[facility] [place] [address] [facility] MicroAlb Creat Ratio,Uon Creatinine, Urine (Random) 123.00 mg/dL Normal [facility] Comment on above: Result Comment: No r eference range established Performed By: #### U RMACRERAT ####[place] [id number] [facility] Microalbumin/Creatinine Ratio 24.4 mg/g Normal 0.0-30.0 [facility] Comment on above: Result Comment: 30-3 00 mg/g indicates an increased risk for diabetic nephropathy. Greater than 300 mg/g is consistent with clinical nephropathy. (Am. J. Kidney Disease 1995, 25:107)PERFORMED BY:[address] [place], [place] [phone] MEDICAL DIRECTORSADAF STANTON M.D. Performed By: #### U RMACRERAT ####[place] [id number] [facility] Microalbumin [Mass/volume] i n UrineOrdered By: Angelique Russell on 11-15-2023 Albumin DL <= 20 mg/L (U) [Mass/Vol] 3.0 mg/dL High 0.0-1.8 [facility] Comment on above: Performed By: #### U RMACRERAT ####[address] No Panel InformationOrdered By: Jonas Ch on 11-15-2023 Estimated GFR (CKD-EPI) > 60.0 mL/Min [facility] Creatinine Clearance (Chem N/A [facility] Potassium [Moles/volume] in Serum or PlasmaOrdered By: Jonas Ch on 11-15-2023 Potassium [Moles/Vol] 4.1 mmol/L Normal 3.5-5.1 [facility] Comment on above: Performed By: #### A MARY ZAPATA BMP ####[address] Serum or plasma anion gap de terminationOrdered By: Jonas Ch on 11-15-2023 Anion gap [Moles/Vol] 12.4 mmol/L Normal 6.0-15.0 [facility] Comment on above: Performed By: #### A IVORY ZAPATA3, BMP ####[facility] [place] [address] [facility] Sodium [Moles/volume] in Ser um or PlasmaOrdered By: Jonas Ch on 11-15-2023 Sodium [Moles/Vol] 138 mmol/L Normal 136-145 [facility] Comment on above: Performed By: #### A , [facility]3, BMP ####[place] [address] [place] [address] [facility] Thyrotropin [Units/volume] i n Serum or PlasmaOrdered By: Jonas Ch on 11-15-2023 TSH Qn 3.39 m[IU]/L Normal 0.45-5.33 [facility] Comment on above: Result Comment: PERF ORMED BY:[address] [place], [place] [phone] MEDICAL DIRECTORSADAF STANTON M.D. Performed By: #### A [facility]3, BMP ####[place] [address] [place] [address] [facility] Urea nitrogen [Mass/volume] in Serum or PlasmaOrdered By: Jonas Ch on 11-15-2023 Urea nitrogen [Mass/Vol] 20 mg/dL Normal 7-25 [facility] Comment on above: Performed By: #### A [facility]3, BMP ####[place] [place] [address] [facility] Urine microalbumin/creatinin e mass ratioOrdered By: Angelique Russell on 11-15-2023 Albumin/Creatinine DL <= 20 mg/L (U) [Mass ratio] 24.4 mg/g 0.0-30.0 [facility] Comment on above: 30-300 mg/g indicate s an increased risk for diabetic nephropathy. Greater than 300 mg/g is consistent with clinical nephropathy. (Am. J. Kidney Disease 1995, 25:107) No Panel Informationon 11-13 Bedside Glucose 139 [facility] ECG 12 Leadon 11-13-2023 Normal sinus rhythm Normal EKG QTc 457 ms [facility] Work Phone: Automated basophil %Ordered By: Chaka Frye on 11-12-2023 Basophils/100 WBC (Bld) 0.5 % Normal . [facility] Comment on above: Performed By: #### C MG MAURICIO, BMP ####[place] [id number] Automated basophil countOrde red By: Chaka Frye on 11-12-2023 Basophils (Bld) [#/Vol] 0.0 10*3/uL Normal 0.0-0.2 [facility] Comment on above: Result Comment: PERF ORMED BY:[address] [place], [place] [phone] MEDICAL DIRECTORSADAF STANTON M.D. Performed By: #### C MG MAURICIO, BMP ####[address] Automated blood monocyte cou ntOrdered By: Chaka Frye on 11-12-2023 Monocytes (Bld) [#/Vol] 0.8 10*3/uL Normal 0.0-0.8 [facility] Comment on above: Performed By: #### C MG MAURICIO, BMP ####[address] Automated eosinophil %Ordere d By: Chaka Frye on 11-12-2023 Eosinophils/100 WBC (Bld) 5.2 % Normal . [facility] Comment on above: Performed By: #### C MG MAURICIO, BMP ####[address] Automated eosinophil countOr dered By: Chaka Frye on 11-12-2023 Eosinophils (Bld) [#/Vol] 0.4 10*3/uL Normal 0.0-0.45 [facility] Comment on above: Performed By: #### C MG MAURICIO, BMP ####[address] Automated monocyte %Ordered By: Chakaelzbieta Frye on 11-12-2023 Monocytes/100 WBC (Bld) 11.0 % Normal . [facility] Comment on above: Performed By: #### C BC MG, BMP ####[facility] [place] [id number] [facility] Automated neutrophil %Ordere d By: Chaka Frye on 11-12-2023 Neutrophils/100 WBC (Bld) 52.5 % Normal . [facility] Comment on above: Performed By: #### C BC, MG, BMP ####[facility] [place] [phone] [facility] Basic Metabolic Panelon 10-27 Creatinine Clr Calc Pharmacy 63.39 Normal [facility] Comment on above: Performed By: #### C MAURICIO MG, BMP ####[place] [address] [place] [id number] [facility] GFR/1.73 sq M.predicted MDRD (S/P/Bld) [Vol rate/Area] mL/min/{1.73_m2} Normal [facility] Comment on above: Performed By: #### C BC MG, BMP ####[place] [address] Calcium [Mass/volume] in Ser um or PlasmaOrdered By: Chaka Frye on 11-12-2023 Calcium [Mass/Vol] 9.5 mg/dL Normal 8.6-10.3 [facility] Comment on above: Performed By: #### C BC, MG, BMP ####[place] [address] [place] [id number] [facility] Capillary blood glucose steve urement by glucometer (mass/volume)Ordered By: Chaka Frye on 11-12-2023 Glucose [Mass/Vol] 137 mg/dL Normal [facility] Comment on above: Random Glucose Refer ence Range is dependent on time and content of last meal. Glucose of more than 200 mg/dL in a nonstressed, ambulatory subject supports the diagnosis of Diabetes Mellitus. Result Comment: [employer] om Glucose Reference Range is dependent on time and content of last meal. Glucose of more than 200 mg/dL in a nonstressed, ambulatory subject supports the diagnosis of Diabetes Mellitus.PERFORMED BY:[address] [place], [place] [phone] MEDICAL DIRECTORSADAF STANTON M.D. Performed By: #### G HERNÁN ####Point of Care testing, Carbon dioxide, total [Moles /volume] in Serum or PlasmaOrdered By: Chaka Frye on 11-12-2023 CO2 [Moles/Vol] 30.0 mmol/L Normal 21.0-31.0 [facility] Comment on above: Performed By: #### C BC, MG, BMP ####[place] [id number] [facility] Chloride [Moles/volume] in S elliot or PlasmaOrdered By: Chaka Frye on 11-12-2023 Chloride [Moles/Vol] 103 mmol/L Normal 98-107 [facility] Comment on above: Performed By: #### C BC, MG, BMP ####[address] [address] [facility] Complete Blood Count Auto Di ffon 11-12-2023 Mean Corpuscular HGB Conc 32.8 g/dL Normal 32.0-35.0 [facility] Comment on above: Performed By: #### C BC, MG, BMP ####[address] [address] [facility] NRBC% 0.1 /100{WBC} Normal 0-0.5 [facility] Comment on above: Performed By: #### C BC, MG, BMP ####[place] [id number] [facility] Creatinine [Mass/volume] in Serum or PlasmaOrdered By: Chaka Frye on 11-12-2023 Creatinine [Mass/Vol] 0.98 mg/dL Normal 0.60-1.20 [facility] Comment on above: Performed By: #### C BC, MG, BMP ####[place] [id number] [facility] ECH echo transthoracicon ECH echo transthoracic Normal Th e [facility] Erythrocyte distribution wid th [Ratio] by Automated countOrdered By: Chaka Frye on 11-12-2023 Erythrocyte distribution width (RBC) [Ratio] 14.0 % Normal 11.9-15.3 [facility] Comment on above: Performed By: #### C BC, MG, BMP ####[place] [address] [place] [id number] [facility] Erythrocytes [#/volume] in B lood by Automated countOrdered By: Chaka Frye on 11-12-2023 RBC (Bld) [#/Vol] 4.54 10*6/uL Normal 3.60-5.00 [facility] Comment on above: Performed By: #### C BC, MG, BMP ####[address] [address] [facility] Glucose Poct Glucometerson 0 11-12-2023 Glucose [Mass/Vol] 176 mg/dL Normal [facility] Comment on above: Result Comment: [facility] Glucose Reference Range is dependent on time and content of last meal. Glucose of more than 200 mg/dL in a nonstressed, ambulatory subject supports the diagnosis of Diabetes Mellitus.PERFORMED BY:[place] [address] [place], [place] [phone] MEDICAL DIRECTORSADAF STANTON M.D. Performed By: #### G LULS ####Point of Care testing, Glucose [Mass/Vol] 120 mg/dL Normal [facility] Comment on above: Result Comment: [facility] Glucose Reference Range is dependent on time and content of last meal. Glucose of more than 200 mg/dL in a nonstressed, ambulatory subject supports the diagnosis of Diabetes Mellitus.PERFORMED BY:[place] [address] [place], [place] [phone] MEDICAL DIRECTORSADAF STANTON M.D. Performed By: #### G LULS ####Point of Care testing, Glucose [Mass/volume] in Ser um or PlasmaOrdered By: Chaka Frye on 11-12-2023 Glucose [Mass/Vol] 102 mg/dL High 70-100 [facility] Comment on above: ADA recommended refe rence rangeRandom Glucose Reference Range is dependent on time and content of last meal. Glucose of more than 200 mg/dL in a nonstressed, ambulatory subject supports the diagnosis of Diabetes Mellitus. Result Comment: [employer] om Glucose Reference Range is dependent on time and content of last meal. Glucose of more than 200 mg/dL in a nonstressed, ambulatory subject supports the diagnosis of Diabetes Mellitus. ADA recommended reference range Performed By: #### C MG MAURICIO, BMP ####[place] [address] Hematocrit [Volume Fraction] of Blood by Automated countOrdered By: Chaka Frye on 11-12-2023 Hematocrit (Bld) [Volume fraction] 44.6 % Normal 34.0-46.4 [facility] Comment on above: Performed By: #### C MG MAURICIO, BMP ####[facility] [place] [id number] [facility] Hemoglobin [Mass/volume] in BloodOrdered By: Chaka Frye on 11-12-2023 Hemoglobin (Bld) [Mass/Vol] 14.6 g/dL Normal 11.8-15.4 [facility] Comment on above: Performed By: #### C MG MAURICIO, BMP ####[place] [id number] [facility] Leukocytes [#/volume] correc deepika for nucleated erythrocytes in Blood by Automated counOrdered By: Chaka Frye on 11-12-2023 WBC corrected for nucl RBC Auto (Bld) [#/Vol] 7.4 10*3/uL 3.8-11.6 [facility] Leukocytes [#/volume] in Blo od by Automated countOrdered By: Chaka Frye on 11-12-2023 WBC (Bld) [#/Vol] 7.4 10*3/uL Normal 3.8-11.6 [facility] Comment on above: Performed By: #### C MG MAURICIO, BMP ####[place] [address] [place] [id number] [facility] Lymphocytes [#/volume] in Bl ood by Automated countOrdered By: Chaka Frye on 11-12-2023 Lymphocytes (Bld) [#/Vol] 2.3 10*3/uL Normal 1.00-4.8 [facility] Comment on above: Performed By: #### C MG MAURICIO, BMP ####[address] Lymphocytes/100 leukocytes i n Blood by Automated countOrdered By: Chaka Frye on 11-12-2023 Lymphocytes/100 WBC (Bld) 30.8 % Normal . [facility] Comment on above: Performed By: #### C MG MAURICIO, BMP ####[address] MCH [Entitic mass] by Automa deepika countOrdered By: Chaka Frye on 11-12-2023 MCH (RBC) [Entitic mass] 32.2 pg Normal 24.7-34.3 [facility] Comment on above: Performed By: #### C MG MAURICIO, BMP ####[address] MCHC Auto (RBC) [Mass/Vol]Or dered By: Chaka Frye on 11-12-2023 MCHC (RBC) [Mass/Vol] 32.8 g/dL 32.0-35.0 [facility] MCV [Entitic volume] by Auto mated countOrdered By: Chaka Frye on 11-12-2023 MCV (RBC) [Entitic vol] 98.1 fL Normal 80-100 [facility] Comment on above: Performed By: #### C MAURICIO MG, BMP ####[address] Magnesium [Mass/volume] in S elliot or PlasmaOrdered By: Chaka Frye on 11-12-2023 Magnesium [Mass/Vol] 1.9 mg/dL Normal 1.9-2.7 [facility] Comment on above: Result Comment: PERF ORMED BY:[place] [address] [place], [place] [phone] MEDICAL DIRECTORSADAF STANTON M.D. Performed By: #### C BC, MG, BMP ####[place] [address] [place] [id number] [facility] Neutrophils [#/volume] in Bl ood by Automated countOrdered By: Chaka Frye on 11-12-2023 Neutrophils (Bld) [#/Vol] 3.9 10*3/uL Normal 1.8-7.7 [facility] Comment on above: Performed By: #### C BC, MG, BMP ####[place] [id number] No Panel InformationOrdered By: Chaka Frye on 11-12-2023 Estimated GFR (CKD-EPI) > 60.0 mL/Min [facility] Creatinine Clearance (Chem 63.39 [facility] Nucleated erythrocytes [Pres ence] in Blood by Automated countOrdered By: Chaka Frye on 11-12-2023 Nucleated RBC Auto Ql (Bld) 0.1 /100{WBC} 0-0.5 [facility] [facility] Platelet mean volume [Entiti c volume] in Blood by Automated countOrdered By: Chaka Frye on 11-12-2023 Platelet mean volume (Bld) [Entitic vol] 9.1 fL Normal 6.3-10.7 [facility] Comment on above: Performed By: #### C BC, MG, BMP ####[place] [id number] [place] [id number] [facility] Platelets [#/volume] in Bloo d by Automated countOrdered By: Chaka Frye on 11-12-2023 Platelets (Bld) [#/Vol] 155 10*3/uL Normal 150-450 [facility] Comment on above: Performed By: #### C BC, MG, BMP ####[place] [id number] Potassium [Moles/volume] in Serum or PlasmaOrdered By: Chaka Frye on 11-12-2023 Potassium [Moles/Vol] 4.4 mmol/L Normal 3.5-5.1 [facility] Comment on above: Performed By: #### C BC, MG, BMP ####[address] [address] [address] [place] [address] [facility] Serum or plasma anion gap de terminationOrdered By: Chaka Frye on 11-12-2023 Anion gap [Moles/Vol] 10.4 mmol/L Normal 6.0-15.0 [facility] Comment on above: Performed By: #### C BC, MG, BMP ####[place] [address] [place] [id number] [facility] Sodium [Moles/volume] in Ser um or PlasmaOrdered By: Chaka Frye on 11-12-2023 Sodium [Moles/Vol] 139 mmol/L Normal 136-145 [facility] Comment on above: Performed By: #### C BC, MG, BMP ####[address] [address] [facility] Urea nitrogen [Mass/volume] in Serum or PlasmaOrdered By: Chakaetienne Frye on 11-12-2023 Urea nitrogen [Mass/Vol] 18 mg/dL Normal 7-25 [facility] Comment on above: Performed By: #### C BC, MG, BMP ####[address] [address] [facility] A1C with Estimated Average G luon 11-11-2023 Glucose [Mass/Vol] 143 mg/dL Normal [facility] Comment on above: Result Comment: PERF ORMED BY:[place] [address] [place], [place] [phone] MEDICAL DIRECTORSADAF STANTON M.D. Performed By: #### A 1C WTH eA, MG, T4F, BMP, CBC ####[address] [address] [facility] Anti-RNPon 11-11-2023 Anti-MILITARY EDUCATION COORDINATOR 0.2 Normal 0.0-0.9 [facility] Comment on above: Result Comment: PERF ORMED BY:[address] [place], [place] [phone] MEDICAL DIRECTORSADAF STANTON M.D. Performed By: #### J O1, ANTIR, SSB, SSA ####[facility] , Basic Metabolic Panelon 10-27 Anion gap [Moles/Vol] 9.3 mmol/L Normal 6.0-15.0 [facility] Comment on above: Performed By: #### A 1C WTH eA, MG, T4F, BMP, CBC ####[address] Calcium [Mass/Vol] 8.9 mg/dL Normal 8.6-10.3 [facility] Comment on above: Performed By: #### A 1C WTH eA, MG, T4F, BMP, CBC ####[address] Chloride [Moles/Vol] 106 mmol/L Normal 98-107 [facility] Comment on above: Performed By: #### A 1C WTH eA, MG, T4F, BMP, CBC ####[address] CO2 [Moles/Vol] 28.0 mmol/L Normal 21.0-31.0 [facility] Comment on above: Performed By: #### A 1C WTH eA, MG, T4F, BMP, CBC ####[place] [id number] [facility] Creatinine [Mass/Vol] 1.07 mg/dL Normal 0.60-1.20 [facility] Comment on above: Performed By: #### A 1C WTH eA, MG, T4F, BMP, CBC ####[place] [id number] [facility] Creatinine Clr Calc Pharmacy 58.06 Normal [facility] Comment on above: Performed By: #### A 1C WTH eA, MG, T4F, BMP, CBC ####[place] [address] GFR/1.73 sq M.predicted MDRD (S/P/Bld) [Vol rate/Area] 57.645 mL/min/{1.73_m2} Normal [facility] Comment on above: Performed By: #### A 1C WT eA, MG, T4F, BMP, CBC ####[address] Glucose [Mass/Vol] 119 mg/dL High 70-100 [facility] Comment on above: Result Comment: [facility] Glucose Reference Range is dependent on time and content of last meal. Glucose of more than 200 mg/dL in a nonstressed, ambulatory subject supports the diagnosis of Diabetes Mellitus. ADA recommended reference range Performed By: #### A 1C WTH eA, MG, T4F, BMP, CBC ####[address] Potassium [Moles/Vol] 4.3 mmol/L Normal 3.5-5.1 [facility] Comment on above: Performed By: #### A 1C WT eA, MG, T4F, BMP, CBC ####[address] Sodium [Moles/Vol] 139 mmol/L Normal 136-145 [facility] Comment on above: Performed By: #### A 1C WT eA, MG, T4F, BMP, CBC ####[address] Urea nitrogen [Mass/Vol] 14 mg/dL Normal 7-25 [facility] Comment on above: Performed By: #### A 1C WT eA, MG, T4F, BMP, CBC ####[address] Complete Blood Count Auto Di ffon 11-11-2023 Basophils (Bld) [#/Vol] 0.0 10*3/uL Normal 0.0-0.2 [facility] Comment on above: Result Comment: PERF ORMED BY:[place] [address] [place] [place], [place] [phone] MEDICAL DIRECTORSADAF STANTON M.D. Performed By: #### A 1C WTH eA, MG, T4F, BMP, CBC ####[address] Basophils/100 WBC (Bld) 0.6 % Normal . T [facility] Comment on above: Performed By: #### A 1C WTH eA, MG, T4F, BMP, CBC ####[address] Eosinophils (Bld) [#/Vol] 0.3 10*3/uL Normal 0.0-0.45 [facility] Comment on above: Performed By: #### A 1C WTH eA, MG, T4F, BMP, CBC ####[address] Eosinophils/100 WBC (Bld) 4.4 % Normal . [facility] Comment on above: Performed By: #### A 1C WTH eA, MG, T4F, BMP, CBC ####[address] Erythrocyte distribution width (RBC) [Ratio] 13.6 % Normal 11.9-15.3 [facility] Comment on above: Performed By: #### A 1C WTH eA, MG, T4F, BMP, CBC ####[address] Hematocrit (Bld) [Volume fraction] 41.6 % Normal 34.0-46.4 [facility] Comment on above: Performed By: #### A 1C WTH eA, MG, T4F, BMP, CBC ####[address] Hemoglobin (Bld) [Mass/Vol] 13.9 g/dL Normal 11.8-15.4 [facility] Comment on above: Performed By: #### A 1C WTH eA, MG, T4F, BMP, CBC ####[address] Lymphocytes (Bld) [#/Vol] 1.8 10*3/uL Normal 1.00-4.8 [facility] Comment on above: Performed By: #### A 1C WTH eA, MG, T4F, BMP, CBC ####[address] Lymphocytes/100 WBC (Bld) 28.5 % Normal . [facility] Comment on above: Performed By: #### A 1C WTH eA, MG, T4F, BMP, CBC ####[address] MCH (RBC) [Entitic mass] 32.5 pg Normal 24.7-34.3 [facility] Comment on above: Performed By: #### A WTH eA, MG, T4F, BMP, CBC ####[address] MCV (RBC) [Entitic vol] 97.1 fL Normal 80-100 [facility] Comment on above: Performed By: #### A WT eA, MG, T4F, BMP, CBC ####[address] Mean Corpuscular HGB Conc 33.5 g/dL Normal 32.0-35.0 [facility] Comment on above: Performed By: #### A WT eA, MG, T4F, BMP, CBC ####[address] Monocytes (Bld) [#/Vol] 0.7 10*3/uL Normal 0.0-0.8 [facility] Comment on above: Performed By: #### A WT eA, MG, T4F, BMP, CBC ####[address] Monocytes/100 WBC (Bld) 10.9 % Normal . [facility] Comment on above: Performed By: #### A 1C WTH eA, MG, T4F, BMP, CBC ####[address] Neutrophils (Bld) [#/Vol] 3.6 10*3/uL Normal 1.8-7.7 [facility] Comment on above: Performed By: #### A 1C WTH eA, MG, T4F, BMP, CBC ####[place] [id number] [facility] Neutrophils/100 WBC (Bld) 55.6 % Normal . [facility] Comment on above: Performed By: #### A 1C WTH eA, MG, T4F, BMP, CBC ####[address] NRBC% 0.0 /100{WBC} Normal 0-0.5 [facility] Comment on above: Performed By: #### A 1C WTH eA, MG, T4F, BMP, CBC ####[address] Platelet mean volume (Bld) [Entitic vol] 9.3 fL Normal 6.3-10.7 [facility] Comment on above: Performed By: #### A 1C WTH eA, MG, T4F, BMP, CBC ####[place] [id number] [facility] Platelets (Bld) [#/Vol] 133 10*3/uL Low 150-450 [facility] Comment on above: Performed By: #### A 1C WTH eA, MG, T4F, BMP, CBC ####[place] [id number] [facility] RBC (Bld) [#/Vol] 4.28 10*6/uL Normal 3.60-5.00 [facility] Comment on above: Performed By: #### A 1C WTH eA, MG, T4F, BMP, CBC ####[place] [id number] [facility] WBC (Bld) [#/Vol] 6.4 10*3/uL Normal 3.8-11.6 [facility] Comment on above: Performed By: #### A 1C WTH eA, MG, T4F, BMP, CBC ####[facility] [place] [address] [facility] Glucose Poct Glucometerson 0 11-11-2023 Glucose [Mass/Vol] 141 mg/dL Normal [facility] Comment on above: Result Comment: [employer] [facility] Glucose Reference Range is dependent on time and content of last meal. Glucose of more than 200 mg/dL in a nonstressed, ambulatory subject supports the diagnosis of Diabetes Mellitus.PERFORMED BY:[address] [place], [place] [phone] MEDICAL DIRECTORSADAF STANTON M.D. Performed By: #### G LULS ####Point of Care testing, Glucose [Mass/Vol] 142 mg/dL Normal [facility] Comment on above: Result Comment: [employer] om Glucose Reference Range is dependent on time and content of last meal. Glucose of more than 200 mg/dL in a nonstressed, ambulatory subject supports the diagnosis of Diabetes Mellitus.PERFORMED BY:[address] [place], [place] [phone] MEDICAL DIRECTORSADAF STANTON M.D. Performed By: #### G LULS ####Point of Care testing, Glucose [Mass/Vol] 154 mg/dL Normal [facility] Comment on above: Result Comment: [employer] om Glucose Reference Range is dependent on time and content of last meal. Glucose of more than 200 mg/dL in a nonstressed, ambulatory subject supports the diagnosis of Diabetes Mellitus.PERFORMED BY:[address] [place], [place] [phone] MEDICAL DIRECTORSADAF STANTON M.D. Performed By: #### G LULS ####Point of Care testing, Glucose [Mass/Vol] 117 mg/dL Normal [facility] Comment on above: Result Comment: [employer] om Glucose Reference Range is dependent on time and content of last meal. Glucose of more than 200 mg/dL in a nonstressed, ambulatory subject supports the diagnosis of Diabetes Mellitus.PERFORMED BY:[place] [address] [address] [place], [place] [phone] MEDICAL DIRECTORSADAF STANTON M.D. Performed By: #### G HERNÁN ####Point of Care testing, Glucose mean value [Mass/vol ume] in Blood Estimated from glycated hemoglobinOrdered By: Jluis Campos on 11-11-2023 Average glucose Estimated from glycated hemoglobin (Bld) [Mass/Vol] 143 mg/dL [facility] Hemoglobin A1c percentageOrd ered By: Jluis Campos on 11-11-2023 HbA1c (Bld) [Mass fraction] 6.6 % High 4.3-5.6 [facility] Comment on above: Increased risk for d iabetes: 5.7 - 6.4diabetes: >6.4glycemic control for adults with diabetes: <7.0 Result Comment: Incr eased risk for diabetes: 5.7 - 6.4 diabetes: >6.4 glycemic control for adults with diabetes: <7.0 Performed By: #### A 1C WTH eA, MG, T4F, BMP, CBC ####[facility] [id number] [place] [address] [facility] SUSHMA-1 Antibodyon 11-11-2023 SUSHMA-1 Antibody <0.2 Normal 0.0-0.9 [facility] Comment on above: Result Comment: Perf ormed at: - [facility] [address] [id number] Loading Checker: Yuri Osullivan PhD, Phone: [phone] Performed By: #### J O1, ANTIR, SSB, SSA ####[facility] , LACTATE AND PYRUVATEon 11-10 LACTIC ACID, PLASMA . [facility] Comment on above: Test not performed. Supernatant is required. CONTACTED YOUR FACILity on 11-05-2023 PYRUVIC ACID, BLOOD . [facility] Comment on above: Test not performed [facility] MR head/brain wo/w conon MR head/brain wo/w con Normal Th e [facility] Magnesiumon 11-11-2023 Magnesium [Mass/Vol] 1.8 mg/dL Low 1.9-2.7 [facility] Comment on above: Performed By: #### A 1C WT eA, MG, T4F, BMP, CBC ####[facility] [id number] No Panel InformationOrdered By: Kirt Renae on 11-11-2023 MILITARY EDUCATION COORDINATOR Antibody 0.2 AI 0.0-0.9 [facility] SS-A/Ro Sjogrens Antibodyon 11-11-2023 SS-A/Ro Sjogrens Antibody <0.2 Normal 0.0-0.9 [facility] Comment on above: Performed By: #### J O1, ANTIR, SSB, SSA ####[facility] , SS-B/La Sjogrens Antibodyon 11-11-2023 SS-B/La Sjogrens Antibody <0.2 Normal 0.0-0.9 [facility] Comment on above: Performed By: #### J O1, ANTIR, SSB, SSA ####[facility] , Serum Sushma-1 extractable nucle ar antibody assay (units/volume)Ordered By: Kirt Renae on 11-11-2023 Sushma-1 extractable nuclear Ab Qn (S) <0.2 AI 0.0-0.9 [facility] Comment on above: Performed at: [address] [id number] Director: Yuri Osullivan PhD, Phone: [phone] Serum Sjogrens syndrome-A ex tractable nuclear antibody assay (units/volume)Ordered By: Kirt Renae on 11-11-2023 Sjogrens syndrome-A extractable nuclear Ab Qn (S) <0.2 AI 0.0-0.9 [facility] Serum Sjogrens syndrome-B ex tractable nuclear antibody assay (units/volume)Ordered By: Kirt Renae on 11-11-2023 Sjogrens syndrome-B extractable nuclear Ab Qn (S) <0.2 AI 0.0-0.9 [facility] Serum or plasma thyroglobuli n antibody assay (units/volume)Ordered By: Kirt Renae on 11-11-2023 Thyroglobulin Ab Qn [IU]/mL 0.0-0.9 [facility] Comment on above: Thyroglobulin Antibo dy measured by GumGumMethodologyIt should be noted that the presence of thyroglobulinantibodies may not be pathogenic nor diagnostic, especiallyat very low levels. The assay road production general manager has found thatfour percent of individuals without evidence of thyroiddisease or autoimmunity will have positive TgAb levels upto 4 IU/mL.Performed at: [facility] [id number] Director: Yuri Osullivan PhD, Phone: [phone] Serum or plasma thyroperoxid ase antibody assay (units/volume)Ordered By: Kirt Renae on 11-11-2023 TPO Ab Qn [IU]/mL 0-34 [facility] Thyroid Antibodies TPO+Tg Ab on 11-11-2023 Antithyroglobulin Ab <1.0 Normal 0.0-0.9 [facility] Comment on above: Result Comment: Thyr oglobulin Antibody measured by [employer] It should be noted that the presence of thyroglobulin antibodies may not be pathogenic nor diagnostic, especially at very low levels. The assay road production general manager has found that four percent of individuals without evidence of thyroid disease or autoimmunity will have positive TgAb levels up to 4 IU/mL. Performed at: [facility] [id number] Loading Checker: Yuri Osullivan PhD, Phone: [phone] BY:[address] [place], [place] [phone] MEDICAL DIRECTORSADAF STANTON M.D. Performed By: #### T 3F ####[facility] [id number] [address]#### THY AB ####[facility] , Thyroid Peroxidase Antibodies <9 Normal 0-34 [facility] Comment on above: Performed By: #### T 3F ####[facility] [id number] [place] [id number] [facility]#### THY AB ####[facility] , Thyroxine (T4) free [Mass/vo lume] in Serum or PlasmaOrdered By: Kirt Renae on 11-11-2023 Free T4 [Mass/Vol] 0.83 ng/dL Normal 0.61-1.12 [facility] Comment on above: Result Comment: PERF ORMED BY:[address] [place], [place] [phone] MEDICAL DIRECTORSADAF STANTON M.D. Performed By: #### A 1C WTH eA, MG, T4F, BMP, CBC ####[place] [address] [place] [address] [facility] Triiodothyronine (T3) Freeon 11-11-2023 Triiodothyronine (T3) Free 2.60 pg/mL Normal 2.50-3.90 [facility] Comment on above: Result Comment: PERF ORMED BY:[place] [address] [place], [place] [phone] MEDICAL DIRECTORSADAF STANTON M.D. Performed By: #### T 3F ####[place] [id number] [facility]#### THY AB ####[facility] , Triiodothyronine (T3) Free [ Mass/volume] in Serum or PlasmaOrdered By: Kirt Renae on 11-11-2023 Free T3 [Mass/Vol] 2.60 pg/mL 2.50-3.90 [facility] Alanine aminotransferase [En zymatic activity/volume] in Serum or PlasmaOrdered By: Reynold Daily on 11-10-2023 ALT [Catalytic activity/Vol] 19 U/L Normal 7-52 [facility] Comment on above: Performed By: #### T 4F, [id number], CBC, TSH3, CMP, [id number], MG ####[place] [id number] [place] Albumin [Mass/volume] in Ser um or Plasma by Bromocresol green (BCG) dye binding methoOrdered By: Reynold Daily on 11-10-2023 Albumin BCG dye [Mass/Vol] 4.2 g/dL 3.5-5.7 [facility] Alkaline phosphatase [Enzyma tic activity/volume] in Serum or PlasmaOrdered By: Reynold Daily on 11-10-2023 ALP [Catalytic activity/Vol] 60 U/L Normal 34-104 [facility] Comment on above: Performed By: #### T 4F, [id number], CBC, TSH3, CMP, [id number], MG ####[place] [id number] [facility] Aspartate aminotransferase [ Enzymatic activity/volume] in Serum or PlasmaOrdered By: Reynold Daily on 11-10-2023 AST [Catalytic activity/Vol] 29 U/L Normal 13-39 [facility] Comment on above: Performed By: #### T 4F, [id number], CBC, TSH3, CMP, [id number], MG ####[place] [id number] [facility] Automated basophil %Ordered By: Reynold Daily on 11-10-2023 Basophils/100 WBC (Bld) 0.9 % Normal . [facility] Comment on above: Performed By: #### T 4F, [id number], CBC, TSH3, CMP, [id number], MG ####[place] [id number] [facility] Automated basophil countOrde red By: Reynold Daily on 11-10-2023 Basophils (Bld) [#/Vol] 0.1 10*3/uL Normal 0.0-0.2 [facility] Comment on above: Result Comment: PERF ORMED BY:[address] [place], [place] [phone] MEDICAL DIRECTORSADAF STANTON M.D. Performed By: #### T 4F, [id number], CBC, TSH3, CMP, [id number], MG ####[place] [id number] [facility] Automated blood monocyte cou ntOrdered By: Reynold Daily on 11-10-2023 Monocytes (Bld) [#/Vol] 0.7 10*3/uL Normal 0.0-0.8 [facility] Comment on above: Performed By: #### T 4F, [id number], CBC, TSH3, CMP, [id number], MG ####[address] [address] [facility] Automated eosinophil %Ordere d By: Reynold Daily on 11-10-2023 Eosinophils/100 WBC (Bld) 3.7 % Normal . [facility] Comment on above: Performed By: #### T 4F, [id number], CBC, TSH3, CMP, [id number], MG ####[address] Automated eosinophil countOr dered By: Reynold Daily on 11-10-2023 Eosinophils (Bld) [#/Vol] 0.3 10*3/uL Normal 0.0-0.45 [facility] Comment on above: Performed By: #### T 4F, [id number], CBC, TSH3, CMP, [id number], MG ####[place] [id number] [facility] Automated monocyte %Ordered By: Reynold Daily on 11-10-2023 Monocytes/100 WBC (Bld) 8.2 % Normal . [facility] Comment on above: Performed By: #### T 4F, [id number], CBC, TSH3, CMP, [id number], MG ####[place] [id number] [facility] Automated neutrophil %Ordere d By: Reynold Daily on 11-10-2023 Neutrophils/100 WBC (Bld) 61.2 % Normal . [facility] Comment on above: Performed By: #### T 4F, [id number], CBC, TSH3, CMP, [id number], MG ####[address] [address] [facility] Bacteria [Presence] in Urine by AutomatedOrdered By: Reynold Daily on 11-10-2023 Bacteria Auto Ql (U) 1+ [HPF] High None Seen [facility] Bilirubin Test strip Ql (U)O rdered By: Reynold Orozcoekta on 11-10-2023 Bilirubin Ql (U) Negative Negative [facility] Bilirubin.total [Mass/volume ] in Serum or PlasmaOrdered By: Reynold Daily on 11-10-2023 Bilirubin [Mass/Vol] 0.4 mg/dL Normal 0.3-1.0 [facility] Comment on above: Performed By: #### T 4F, [id number], CBC, TSH3, CMP, [id number], MG ####[place] [address] [place] [address] [facility] C reactive protein [Mass/vol ume] in Serum or PlasmaOrdered By: Kirt Renae on 11-10-2023 CRP [Mass/Vol] < 0.5 mg/dL 0.0-0.5 [facility] C-Reactive Proteinon 024 CRP [Mass/Vol] mg/L Normal 0.0-0.5 [facility] Comment on above: Result Comment: PERF ORMED BY:[address] [place], [place] [phone] MEDICAL DIRECTORSADAF STANTON M.D. Performed By: #### C RP, ESR ####[place] [address] [place] [address] [facility] CT head/brain wo conon 11-09 CT head/brain wo con Normal [facility] Calcium [Mass/volume] in Ser um or PlasmaOrdered By: Reynold Daily on 11-10-2023 Calcium [Mass/Vol] 9.6 mg/dL Normal 8.6-10.3 [facility] Comment on above: Performed By: #### T 4F, [id number], CBC, TSH3, CMP, [id number], MG ####[facility] [place] [address] [facility] Carbon dioxide, total [Moles /volume] in Serum or PlasmaOrdered By: Reynold Daily on 11-10-2023 CO2 [Moles/Vol] 25.4 mmol/L Normal 21.0-31.0 [facility] Comment on above: Performed By: #### T 4F, [id number], CBC, TSH3, CMP, [id number], MG ####[address] [address] [facility] Chloride [Moles/volume] in S elliot or PlasmaOrdered By: Reynold Daily on 11-10-2023 Chloride [Moles/Vol] 105 mmol/L Normal 98-107 [facility] Comment on above: Performed By: #### T 4F, [id number], CBC, TSH3, CMP, [id number], MG ####[place] [id number] [facility] Color of Urine by AutoOrdere d By: Reynold Daily on 11-10-2023 Color (U) Light-yellow Normal Yellow [facility] Comment on above: Order Comment: Name Collection Type:: Clean-Voided Midstream Performed By: #### A DDONUAPLUS, CUU ####[place] [id number] [facility] Complete Blood Count Auto Di ffon 11-10-2023 Mean Corpuscular HGB Conc 33.3 g/dL Normal 32.0-35.0 [facility] Comment on above: Performed By: #### T 4F, [id number], CBC, TSH3, CMP, [id number], MG ####[place] [id number] [facility] Monocytes/100 WBC (Bld) 19.74 % Normal 0.00-20.00 [facility] Comment on above: Performed By: #### T 4F, [id number], CBC, TSH3, CMP, [id number], MG ####[place] [id number] [facility] NRBC% 0.1 /100{WBC} Normal 0-0.5 [facility] Comment on above: Performed By: #### T 4F, [id number], CBC, TSH3, CMP, [id number], MG ####[place] [place] [address] [facility] Comprehensive Metabolic Pane juan 11-10-2023 Albumin [Mass/Vol] 4.2 g/dL Normal 3.5-5.7 [facility] Comment on above: Performed By: #### T 4F, [id number], CBC, TSH3, CMP, [id number], MG ####[place] [address] [place] [id number] [facility] Creatinine Clr Calc Pharmacy 66.28 Normal [facility] Comment on above: Performed By: #### T 4F, [id number], CBC, TSH3, CMP, [id number], MG ####[place] [id number] [place] [id number] [facility] GFR/1.73 sq M.predicted MDRD (S/P/Bld) [Vol rate/Area] mL/min/{1.73_m2} Normal [facility] Comment on above: Performed By: #### T 4F, [id number], CBC, TSH3, CMP, [id number], MG ####[address] [address] [id number] [place] [phone] [facility] Creatine kinase [Enzymatic a ctivity/volume] in Serum or PlasmaOrdered By: Reynold Daily on 11-10-2023 CK [Catalytic activity/Vol] 69 U/L Normal 30-223 [facility] Comment on above: Result Comment: PERF ORMED BY:[address] [place], [place] [phone] MEDICAL DIRECTORSADAF STANTON M.D. Performed By: #### C K ####[address] [address] [facility] Creatinine [Mass/volume] in Serum or PlasmaOrdered By: Reynold Daily on 11-10-2023 Creatinine [Mass/Vol] 0.93 mg/dL Normal 0.60-1.20 [facility] Comment on above: Performed By: #### T 4F, [id number], CBC, TSH3, CMP, [id number], MG ####[phone] [place] [address] [facility] Dipstick and Microscopicon 0 11-10-2023 Bacteria,Urine 1+ High None Seen [facility] Comment on above: Order Comment: Name Collection Type:: Clean-Voided Midstream Performed By: #### A DDONUAPLUS, CUU ####[address] [address] [facility] Bilirubin,Urine Negative Normal Negative [facility] Comment on above: Order Comment: Name Collection Type:: Clean-Voided Midstream Performed By: #### A DDONUAPLUS, CUU ####[address] [address] [facility] Glucose Ql (U) 1000 mg/dL High Normal [facility] Comment on above: Order Comment: Name Collection Type:: Clean-Voided Midstream Performed By: #### A DDONUAPLUS, CUU ####[address] [address] [facility] Hyaline Casts,Urine None Normal 0-8 [facility] Comment on above: Order Comment: Name Collection Type:: Clean-Voided Midstream Result Comment: PERF ORMED BY:[place] [address] [place], [place] [phone] MEDICAL GEENA STANTON M.D. Performed By: #### A DDONUAPLUS, CUU ####[address] [address] [facility] Nitrite,Urine Negative Normal Negative [facility] Comment on above: Order Comment: Name Collection Type:: Clean-Voided Midstream Performed By: #### A DDONUAPLUS, CUU ####[address] [address] [facility] Occult Blood,Urine Negative Normal Negative [facility] Comment on above: Order Comment: Name Collection Type:: Clean-Voided Midstream Result Comment: PERF ORMED BY:[address] [place] [address] [place], [place] [phone] MEDICAL DIRECTORSADAF STANTON M.D. Performed By: #### A DDONUAPLUS, CUU ####[address] [place] [address] [facility] Protein,Urine Negative Normal Negative [facility] Comment on above: Order Comment: Name Collection Type:: Clean-Voided Midstream Performed By: #### A DDONUAPLUS, CUU ####[address] [address] [facility] RBC,Urine 5-9 High 0-4 [facility] Comment on above: Order Comment: Name Collection Type:: Clean-Voided Midstream Performed By: #### A DDONUAPLUS, CUU ####[place] [id number] [facility] Specificy [place],Urine 1.007 Normal 1.00 1-1.03 0 [facility] Comment on above: Order Comment: Name Collection Type:: Clean-Voided Midstream Performed By: #### A DDONUAPLUS, CUU ####[address] [address] [facility] Squamous Epithelial Cell,Urine 5-9 High 0-2 [facility] Comment on above: Order Comment: Name Collection Type:: Clean-Voided Midstream Performed By: #### A DDONUAPLUS, CUU ####[address] [address] [facility] Urobilinogen,Urine Normal Normal Normal [facility] Comment on above: Order Comment: Name Collection Type:: Clean-Voided Midstream Performed By: #### A DDONUAPLUS, CUU ####[address] [address] [facility] WBC CLUMP, Urine Occasional High None Seen [facility] Comment on above: Order Comment: Name Collection Type:: Clean-Voided Midstream Performed By: #### A DDONUAPLUS, CUU ####[address] [address] [facility] WBC,Urine 20-49 High 0-4 [facility] Comment on above: Order Comment: Name Collection Type:: Clean-Voided Midstream Performed By: #### A DDONUAPLUS, CUU ####[place] [phone] [place] [phone] [facility] Epithelial cells.squamous [# /area] in Urine sediment by Automated countOrdered By: Reynold Daily on 11-10-2023 Epithelial cells.squamous Auto (Urine sed) [#/Area] 5-9 [HPF] High 0-2 [facility] Erythrocyte Sedimentation Ra abner 11-10-2023 ESR (Bld) [Velocity] 40 mm/h High 0-29 [facility] Comment on above: Result Comment: PERF ORMED BY:[address] [place], [place] [phone] MEDICAL DIRECTORSADAF STANTON M.D. Performed By: #### C RP, ESR ####[place] [phone] [facility] Erythrocyte distribution wid th [Ratio] by Automated countOrdered By: Reynold Daily on 11-10-2023 Erythrocyte distribution width (RBC) [Ratio] 13.5 % Normal 11.9-15.3 [facility] Comment on above: Performed By: #### T 4F, [id number], CBC, TSH3, CMP, [id number], MG ####[place] [phone] [place] [phone] [facility] Erythrocyte sedimentation ra te by Photometric methodOrdered By: Kirt Renae on 11-10-2023 ESR Photometric method (Bld) [Velocity] 40 mm/hr High 0-29 [facility] Erythrocytes [#/area] in Uri ne sediment by Automated countOrdered By: Reynold Daily on 11-10-2023 RBC Auto (Urine sed) [#/Area] 5-9 [HPF] High 0-4 [facility] Erythrocytes [#/volume] in B lood by Automated countOrdered By: Reynold Daily on 11-10-2023 RBC (Bld) [#/Vol] 4.59 10*6/uL Normal 3.60-5.00 [facility] Comment on above: Performed By: #### T 4F, [id number], CBC, TSH3, CMP, [id number], MG ####[phone] [place] [address] [facility] Folate [Mass/volume] in Seru m or PlasmaOrdered By: Kirt Renae on 11-10-2023 Folate [Mass/Vol] 19.6 ng/mL >5.9 [facility] Comment on above: Folate reference ran ge: >5.9 ng/mlThe WHO technical consultation on folate and vitamin [id number] has determined that folate concentrations lessthan 4 ng/ml are considered deficient. Free T4 (Free Thyroxine)on 0 11-10-2023 Free T4 [Mass/Vol] 0.82 ng/dL Normal 0.61-1.12 [facility] Comment on above: Performed By: #### T 4F, [id number], CBC, TSH3, CMP, [id number], MG ####[address] [place] [address] [facility] Glucose Poct Glucometerson 0 11-10-2023 Glucose [Mass/Vol] 146 mg/dL Normal [facility] Comment on above: Result Comment: [employer] om Glucose Reference Range is dependent on time and content of last meal. Glucose of more than 200 mg/dL in a nonstressed, ambulatory subject supports the diagnosis of Diabetes Mellitus.PERFORMED BY:[place] [address] [place], [place] [phone] MEDICAL DIRECTORSADAF STANTON M.D. Performed By: #### G LULS ####Point of Care testing, Commemt1 Glu2: Cleaned Meter Normal [facility] Comment on above: Result Comment: PERF ORMED BY:[place] [address] [place], [place] [phone] MEDICAL DIRECTORSADAF STANTON M.D. Performed By: #### G LULS ####Point of Care testing, Glucose [Mass/Vol] 140 mg/dL Normal [facility] Comment on above: Result Comment: [employer] om Glucose Reference Range is dependent on time and content of last meal. Glucose of more than 200 mg/dL in a nonstressed, ambulatory subject supports the diagnosis of Diabetes Mellitus. Performed By: #### G LULS ####Point of Care testing, Commemt1 Glu2: Cleaned Meter Normal [facility] Comment on above: Result Comment: PERF ORMED BY:[address] [place], [place] [phone] MEDICAL DIRECTORSADAF STANTON M.D. Performed By: #### G LULS ####Point of Care testing, Glucose [Mass/Vol] 157 mg/dL Normal [facility] Comment on above: Result Comment: [employer] om Glucose Reference Range is dependent on time and content of last meal. Glucose of more than 200 mg/dL in a nonstressed, ambulatory subject supports the diagnosis of Diabetes Mellitus. Performed By: #### G LULS ####Point of Care testing, Commemt1 Glu2: Cleaned Meter Normal [facility] Comment on above: Result Comment: PERF ORMED BY:[address] [place], [place] [phone] MEDICAL DIRECTORSADAF STANTON M.D. Performed By: #### G LULS ####Point of Care testing, Glucose [Mass/Vol] 101 mg/dL Normal [facility] Comment on above: Result Comment: [employer] om Glucose Reference Range is dependent on time and content of last meal. Glucose of more than 200 mg/dL in a nonstressed, ambulatory subject supports the diagnosis of Diabetes Mellitus. Performed By: #### G LULS ####Point of Care testing, Glucose [Mass/volume] in Ser um or PlasmaOrdered By: Reynold Daily on 11-10-2023 Glucose [Mass/Vol] 95 mg/dL Normal 70-100 [facility] Comment on above: ADA recommended refe rence rangeRandom Glucose Reference Range is dependent on time and content of last meal. Glucose of more than 200 mg/dL in a nonstressed, ambulatory subject supports the diagnosis of Diabetes Mellitus. Result Comment: [employer] om Glucose Reference Range is dependent on time and content of last meal. Glucose of more than 200 mg/dL in a nonstressed, ambulatory subject supports the diagnosis of Diabetes Mellitus. ADA recommended reference range Performed By: #### T 4F, [id number], CBC, TSH3, CMP, [id number], MG ####[place] [phone] Glucose [Mass/volume] in Uri ne by Test stripOrdered By: Reynold Daily on 11-10-2023 Glucose Test strip (U) [Mass/Vol] 1000 mg/dL High Normal [facility] Hematocrit [Volume Fraction] of Blood by Automated countOrdered By: Reynold Daily on 11-10-2023 Hematocrit (Bld) [Volume fraction] 44.9 % Normal 34.0-46.4 [facility] Comment on above: Performed By: #### T 4F, [id number], CBC, TSH3, CMP, [id number], MG ####[place] [phone] Hemoglobin Test strip Ql (U) Ordered By: Reynold Daily on 11-10-2023 Hemoglobin Ql (U) Negative Negative [facility] Hemoglobin [Mass/volume] in BloodOrdered By: Reynold Daily on 11-10-2023 Hemoglobin (Bld) [Mass/Vol] 15.0 g/dL Normal 11.8-15.4 [facility] Comment on above: Performed By: #### T 4F, [id number], CBC, TSH3, CMP, [id number], MG ####[address] Hyaline casts [#/area] in Ur ine sediment by Automated countOrdered By: Reynold Daily on 11-10-2023 Hyaline casts Auto (Urine sed) [#/Area] None [LPF] 0-8 [facility] Ketones [Presence] in Urine by Test stripOrdered By: Reynold Daily on 11-10-2023 Ketones Ql (U) Negative Normal Negative [facility] Comment on above: Order Comment: Name Collection Type:: Clean-Voided Midstream Performed By: #### A DDONUAPLUS, CUU ####[facility] [id number] [place] [address] [facility] Leukocyte clumps [Presence] in Urine by AutomatedOrdered By: Reynold Daily on 11-10-2023 Leukocyte clumps Auto Ql (U) Occasional [LPF] High None Seen [facility] Leukocyte esterase [Presence ] in Urine by Test stripOrdered By: Reynold Daily on 11-10-2023 Leukocyte esterase Test strip Ql (U) 4+ High Negative [facility] Comment on above: Order Comment: Name Collection Type:: Clean-Voided Midstream Performed By: #### A DDONJACKELIN, CUU ####[facility] [id number] [place] [id number] [facility] Leukocytes [#/area] in Urine sediment by Automated countOrdered By: Reynold Daily on 11-10-2023 WBC Auto (Urine sed) [#/Area] 20-49 [HPF] High 0-4 [facility] Leukocytes [#/volume] correc deepika for nucleated erythrocytes in Blood by Automated counOrdered By: Reynold Daily on 11-10-2023 WBC corrected for nucl RBC Auto (Bld) [#/Vol] 8.5 10*3/uL 3.8-11.6 [facility] Leukocytes [#/volume] in Blo od by Automated countOrdered By: Reynold Daily on 11-10-2023 WBC (Bld) [#/Vol] 8.5 10*3/uL Normal 3.8-11.6 [facility] Comment on above: Performed By: #### T 4F, [id number], CBC, TSH3, CMP, [id number], MG ####[facility] [id number] [place] [address] [facility] Lymphocytes [#/volume] in Bl ood by Automated countOrdered By: Reynold Daily on 11-10-2023 Lymphocytes (Bld) [#/Vol] 2.2 10*3/uL Normal 1.00-4.8 [facility] Comment on above: Performed By: #### T 4F, [id number], CBC, TSH3, CMP, [id number], MG ####[address] [place] [address] [facility] Lymphocytes/100 leukocytes i n Blood by Automated countOrdered By: Reynold Daily on 11-10-2023 Lymphocytes/100 WBC (Bld) 26.0 % Normal . [facility] Comment on above: Performed By: #### T 4F, [id number], CBC, TSH3, CMP, [id number], MG ####[address] [id number] [place] [id number] [facility] MCH [Entitic mass] by Automa deepika countOrdered By: Reynold Daily on 11-10-2023 MCH (RBC) [Entitic mass] 32.6 pg Normal 24.7-34.3 [facility] Comment on above: Performed By: #### T 4F, [id number], CBC, TSH3, CMP, [id number], MG ####[place] [id number] [facility] MCHC Auto (RBC) [Mass/Vol]Or dered By: Reynold Daily on 11-10-2023 MCHC (RBC) [Mass/Vol] 33.3 g/dL 32.0-35.0 [facility] MCV [Entitic volume] by Auto mated countOrdered By: Reynold Daily on 11-10-2023 MCV (RBC) [Entitic vol] 97.8 fL Normal 80-100 [facility] Comment on above: Performed By: #### T 4F, [id number], CBC, TSH3, CMP, [id number], MG ####[place] [id number] [facility] Magnesium [Mass/volume] in S elliot or PlasmaOrdered By: Reynold Daily on 11-10-2023 Magnesium [Mass/Vol] 1.7 mg/dL Low 1.9-2.7 [facility] Comment on above: Result Comment: PERF ORMED BY:[address] [place], [place] [phone] MEDICAL DIRECTORSADAF STANTON M.D. Performed By: #### T 4F, [id number], CBC, TSH3, CMP, [id number], MG ####[facility] [place] [id number] [facility] Monocyte distribution width [Entitic volume] in Blood by AutomatedOrdered By: Reynold Daily on 11-10-2023 Monocyte distribution width Auto (Bld) [Entitic vol] 19.74 % 0.00-20.00 [facility] Neutrophils [#/volume] in Bl ood by Automated countOrdered By: Reynold Daily on 11-10-2023 Neutrophils (Bld) [#/Vol] 5.2 10*3/uL Normal 1.8-7.7 [facility] Comment on above: Performed By: #### T 4F, [id number], CBC, TSH3, CMP, [id number], MG ####[place] [phone] Nitrite Test strip Ql (U)Ord ered By: Reynold Daily on 11-10-2023 Nitrite Ql (U) Negative Negative [facility] No Panel InformationOrdered By: Kirt Renae on 11-10-2023 Bedside Glucose Comment Glu2: cleaned meter [facility] No Panel InformationOrdered By: Reynold Daily on 11-10-2023 Estimated GFR (CKD-EPI) > 60.0 mL/Min [facility]acy Creatinine Clearance (Chem 66.28 [facility] Nucleated erythrocytes [Pres ence] in Blood by Automated countOrdered By: Reynold Daily on 11-10-2023 Nucleated RBC Auto Ql (Bld) 0.1 /100{WBC} 0-0.5 [facility] Platelet mean volume [Entiti c volume] in Blood by Automated countOrdered By: Reynold Daily on 11-10-2023 Platelet mean volume (Bld) [Entitic vol] 8.7 fL Normal 6.3-10.7 [facility] Comment on above: Performed By: #### T 4F, [id number], CBC, TSH3, CMP, [id number], MG ####[place] [id number] [place] [phone] [facility] Platelets [#/volume] in Bloo d by Automated countOrdered By: Reynold Abimbola on 11-10-2023 Platelets (Bld) [#/Vol] 149 10*3/uL Low 150-450 [facility] Comment on above: Performed By: #### T 4F, [id number], CBC, TSH3, CMP, [id number], MG ####[address] [place] [address] [facility] Potassium [Moles/volume] in Serum or PlasmaOrdered By: Reynold Daily on 11-10-2023 Potassium [Moles/Vol] 4.6 mmol/L Normal 3.5-5.1 [facility] Comment on above: Hemolysis is present at a level that could interfere with the result.Contact lab if redraw is required Result Comment: Hemo lysis is present at a level that could interfere with the result. Contact lab if redraw is required Performed By: #### T 4F, [id number], CBC, TSH3, CMP, [id number], MG ####[address] [place] [address] [facility] Protein Test strip (U) [Mass /Vol]Ordered By: Reynold Daily on 11-10-2023 Protein (U) [Mass/Vol] Negative Negative [facility] Protein [Mass/volume] in Ser um or PlasmaOrdered By: Reynold Daily on 11-10-2023 Protein [Mass/Vol] 7.1 g/dL Normal 6.4-8.9 [facility] Comment on above: Performed By: #### T 4F, [id number], CBC, TSH3, CMP, [id number], MG ####[address] [place] [address] [facility] Redraw Folateon 11-10-2023 Redraw Folate 19.6 ng/mL Normal >5.9 [facility] Comment on above: Order Comment: SPECI MEN HEMOLYZED. NOTIFIED MANSOOR Result Comment: Meera te reference range: >5.9 ng/ml The WHO technical consultation on folate and vitamin b12 deficiencies has determined that folate concentrations less than 4 ng/ml are considered deficient.PERFORMED BY:[address], [place] [phone] MEDICAL DIRECTORSDAAF STANTON M.D. Performed By: #### R EDRAW B12, REDRAW FOLATE ####[place] [id number] [facility] Serum globulin measurement b y calculation (mass/volume)Ordered By: Reynold Daily on 11-10-2023 Globulin (S) [Mass/Vol] 2.9 g/dL Normal [facility] Comment on above: Performed By: #### T 4F, [id number], CBC, TSH3, CMP, [id number], MG ####[place] [id number] [facility] Serum or plasma albumin/glob ulin mass ratioOrdered By: Reynold Daily on 11-10-2023 Albumin/Globulin [Mass ratio] 1.4 {ratio} Normal [facility] Comment on above: Performed By: #### T 4F, [id number], CBC, TSH3, CMP, [id number], MG ####[place] [id number] [facility] Serum or plasma anion gap de terminationOrdered By: Reynold Daily on 11-10-2023 Anion gap [Moles/Vol] 11.2 mmol/L Normal 6.0-15.0 [facility] Comment on above: Performed By: #### T 4F, [id number], CBC, TSH3, CMP, [id number], MG ####[place] [id number] [facility] Sodium [Moles/volume] in Ser um or PlasmaOrdered By: Reynold Daily on 11-10-2023 Sodium [Moles/Vol] 137 mmol/L Normal 136-145 [facility] Comment on above: Performed By: #### T 4F, [id number], CBC, TSH3, CMP, [id number], MG ####[place] [id number] [facility] Specific gravity Test strip (U) [Rel density]Ordered By: Reynold Daily on 11-10-2023 Specific gravity (U) [Rel density] 1.007 1.001-1.03 0 [facility] Thyrotropin [Units/volume] i n Serum or PlasmaOrdered By: Jluis Campos on 11-10-2023 TSH Qn 5.73 m[IU]/L High 0.45-5.33 [facility] Comment on above: Performed By: #### T 4F, [id number], CBC, TSH3, CMP, [id number], MG ####[address] Urea nitrogen [Mass/volume] in Serum or PlasmaOrdered By: Reynold Daily on 11-10-2023 Urea nitrogen [Mass/Vol] 14 mg/dL Normal 7- [facility] Comment on above: Performed By: #### T 4F, [id number], CBC, TSH3, CMP, [id number], MG ####[place] [phone] Urine Cultureon 11-10-2023 Bacteria identified Cx Nom (U) Normal [facility] Comment on above: Performed By: #### A DASIA, CUU ####[address] Urine appearanceOrdered By: Reynold Daily on 11-10-2023 Appearance (U) Clear Normal Clear [facility] Comment on above: Order Comment: Name Collection Type:: Clean-Voided Midstream Performed By: #### A DDONUAEARL, CUU ####[address] Urine culture routineOrdered By: Reynold Daily on 11-10-2023 Bacteria identified Cx Nom (U) 2 Days [facility] Urobilinogen Test strip (U) [Mass/Vol]Ordered By: Reynold Daily on 11-10-2023 Urobilinogen (U) [Mass/Vol] Normal mg/dL Normal [facility] Vit. B12/Folate Profileon Folate Normal >5.9 [facility] Comment on above: Result Comment: Spec imen hemolyzed, redraw requested Folate reference range: >5.9 ng/ml The WHO technical consultation on folate and vitamin b12 deficiencies has determined that folate concentrations less than 4 ng/ml are considered deficient. Performed By: #### T 4F, [id number], CBC, TSH3, CMP, [id number], MG ####[facility] [id number] [place] [address] [facility] Vitamin B12 Normal 180-914 [facility] Comment on above: Result Comment: Spec imen hemolyzed, redraw requested Performed By: #### T 4F, [id number], CBC, TSH3, CMP, [id number], MG ####[phone] [place] [address] [facility] Vitamin B12 ser/plasOrdered By: Kirt Renae on 11-10-2023 Cobalamin (Vitamin B12) [Mass/Vol] 306 pg/mL Normal 180-914 [facility] Comment on above: Order Comment: SPECI MEN HEMOLYZED. NOTIFIED MANSOOR Performed By: #### R EDRAW B12, REDRAW FOLATE ####[address] [place] [address] [facility] Vitamin D 25 Hydroxy Totalon 11-10-2023 Vitamin D 25 Hydroxy Total 61.3 ng/mL Normal 30-100 [facility] Comment on above: Result [...] Endocrine Society clinical practice guideline. JCEM. 2010; 96(7):1911-30.PERFORMED BY:[address] [place], [place] [phone] MEDICAL DIRECTORSADAF STANTON M.D. Performed By: #### T 4F, [id number], CBC, TSH3, CMP, [id number], MG ####[facility] [id number] [place] [address] [facility] Vitamin D+Metabolites [Mass/ volume] in Serum or PlasmaOrdered By: Jluis Campos on 11-10-2023 Vitamin D+Metabolites [Mass/Vol] 61.3 ng/mL 30-100 [facility] Comment on above: Hemolysis is present at [...] of Urine by Test stripOrd ered By: Reynold Daily on 11-10-2023 pH (U) 6.0 [pH] Normal 5.0-9.0 [facility] Comment on above: Order Comment: Name Collection Type:: Clean-Voided Midstream Performed By: #### A DDONUAPLUS, CUU ####[facility] [address] [place] [address] [facility] Capillary blood glucose steve urement by glucometer (mass/volume)Ordered By: OSORIO WHITE on 11-09-2023 Glucose [Mass/Vol] 139 mg/dL Normal [facility] Comment on above: Random Glucose Refer ence Range is dependent on time and content of last meal. Glucose of more than 200 mg/dL in a nonstressed, ambulatory subject supports the diagnosis of Diabetes Mellitus. Result Comment: [facility] Glucose Reference Range is dependent on time and content of last meal. Glucose of more than 200 mg/dL in a nonstressed, ambulatory subject supports the diagnosis of Diabetes Mellitus.PERFORMED BY:[facility] [place], [place] [phone] MEDICAL DIRECTORSADAF STANTON M.D. Performed By: #### G LULS ####Point of Care testing, ECG 12 lead ECGon 11-09-2023 ECG 12 lead ECG Normal [facility] Carbon dioxide, total [Moles /volume] in Serum or PlasmaOrdered By: Jonas Ch on 11-05-2023 CO2 [Moles/Vol] 28.6 mmol/L Normal 21.0-31.0 [facility] Comment on above: Performed By: #### L YTES ####[address] [place] [address] [facility] Chloride [Moles/volume] in S elliot or PlasmaOrdered By: Jonas Ch on 11-05-2023 Chloride [Moles/Vol] 104 mmol/L Normal 98-107 [facility] Comment on above: Performed By: #### L YTES ####[address] [address] [facility] ECG 12 lead ECGon 11-05-2023 ECG 12 lead ECG Normal [facility] ECG post procedureon 024 ECG post procedure Normal [facility] Potassium [Moles/volume] in Serum or PlasmaOrdered By: Jonas Ch on 11-05-2023 Potassium [Moles/Vol] 4.6 mmol/L Normal 3.5-5.1 [facility] Comment on above: Performed By: #### L YTES ####[id number] [facility] Serum or plasma anion gap de terminationOrdered By: Jonas Ch on 11-05-2023 Anion gap [Moles/Vol] 11.0 mmol/L Normal 6.0-15.0 [facility] Comment on above: Result Comment: PERF ORMED BY:[address] [place]BE[place], [place] [phone] MEDICAL DIRECTORSADAF STANTON M.D. Performed By: #### L YTES ####[address] [place] [address] [facility] Sodium [Moles/volume] in Ser um or PlasmaOrdered By: Jonas Ch on 11-05-2023 Sodium [Moles/Vol] 139 mmol/L Normal 136-145 [facility] Comment on above: Performed By: #### L ANA ####[address] A1C with Estimated Average Andre horne 10-30-2023 Glucose [Mass/Vol] 143 mg/dL Normal [facility] Comment on above: Result Comment: PERF ORMED BY:[address] [place], [place] [phone] MEDICAL DIRECTORSADAF STANTON M.D. Performed By: #### A ST, ALT, CK, [id number], T4F, HSCRP, A1C WTH eA, ESR, TSH3 ####[address]#### LYME AB wRFX, LH, LACTATE PYRUVAT, HOMOCYS PL, NATASHA SERUM, RA, BEATRICE, ZINC,WB, ALDOLASE, NATASHA,URINE, WEST TANK, MORTEZA, CERULOP, RPR W RFX, UPE RAND, SPE, VITB6, METH ####[facility] , BEATRICE Antinuclear Antibodieson 10-30-2023 Antinuclear Abs, IFA Positive Critically abnormal . [facility] Comment on above: Result Comment: Nega tive <1:80 Borderline 1:80 Positive >1:80 Performed By: #### A ST, ALT, CK, [id number], T4F, HSCRP, A1C WTH eA, ESR, TSH3 ####[address]#### LYME AB wRFX, LH, LACTATE PYRUVAT, HOMOCYS PL, NATASHA SERUM, RA, BEATRICE, ZINC,WB, ALDOLASE, NATASHA,URINE, WEST TANK, MORTEZA, CERULOP, RPR W RFX, UPE RAND, SPE, VITB6, METH ####[facility] , Note 1 Normal . [facility] Comment on above: Result Comment: Gayatri kaufman Potential Disease Association Homogeneous Systemic Lupus Erythematosus, Drug Induced Systemic Lupus Erythematosus, Chronic Autoimmune hepatitis, Juvenile Idiopathic Arthritis Speckled Sjogren Syndrome, Systemic Lupus Erythematosus, Subacute Cutaneous Lupus, Lupus, Congenital Heart Block, Mixed Connective Tissue Disease, Scleroderma-diffuse, Scleroderma-Autoimmune Myositis Overlap Syndrome, Systemic Lupus Xwmqcelemyvrz-Kghnvyglufa-Zmufopsjhh Myositis Overlap Syndrome, Systemic Autoimmune Rheumatic Disease, [...] Linear Scleroderma, Antiphospholipid Syndrome Performed at: - [facility] [id number] Loading Checker: Christine Pham MD, Phone: [phone] Performed at: - [facility] [id number] Loading Checker: Yuri Osullivan PhD, Phone: [phone] Pattern Potential Disease Association Homogeneous Systemic Lupus Erythematosus, Drug Induced Systemic Lupus Erythematosus, Chronic Autoimmune hepatitis, Juvenile Idiopathic Arthritis Speckled Sjogren Syndrome, Systemic Lupus Erythematosus, Subacute Cutaneous Lupus, Lupus, Congenital Heart Block, Mixed Connective Tissue Disease, Scleroderma-diffuse, Scleroderma-Autoimmune Myositis Overlap Syndrome, Systemic Lupus Ulxdavxocyvfz-Ebghsulfndm-Qjfkciwpar Myositis Overlap Syndrome, Systemic Autoimmune Rheumatic Disease, [...] Cytopenias, Linear Scleroderma, Antiphospholipid Syndrome Performed at: [facility] [id number] Loading Checker: Yuri Osullivan PhD, Phone: [phone] Performed at: [facility] [id number] Loading Checker: Christine Pham MD, Phone: [phone] --- 11/06/23 1236 --- BEATRICE ELLIS Note 1 previously reported as: Pattern Potential Disease Association Homogeneous Systemic Lupus Erythematosus, Drug Induced Systemic Lupus Erythematosus, Chronic Autoimmune hepatitis, Juvenile Idiopathic Arthritis Speckled Sjogren Syndrome, Systemic Lupus Erythematosus, Subacute Cutaneous Lupus, Lupus, Congenital Heart Block, Mixed Connective Tissue Disease, Scleroderma-diffuse, Scleroderma-Autoimmune Myositis Overlap Syndrome, Systemic Lupus Rgedxadihhriv-Ireqynknjri-Gfkkgggfnn Myositis Overlap Syndrome, Systemic Autoimmune Rheumatic Disease, [...] Cytopenias, Linear Scleroderma, Antiphospholipid Syndrome Performed at: [facility] [address] [id number] Loading Checker: Christine Pham MD, Phone: [phone] Performed at: [facility] [id number] [place], [place] [id number] Loading Checker: Yuri Osullivan PhD, Phone: [phone] Performed By: #### A ST, ALT, CK, [id number], T4F, HSCRP, A1C WTH eA, ESR, TSH3 ####[id number] [place]#### LYME AB wRFX, LH, LACTATE PYRUVAT, HOMOCYS PL, NATASHA SERUM, RA, BEATRICE, ZINC,WB, ALDOLASE, NATASHA,URINE, WEST TANK, MORTEZA, CERULOP, RPR W RFX, UPE RAND, SPE, VITB6, METH ####[facility] , Speckled Pattern 1:80 Normal . [facility] Comment on above: Result Comment: ICAP nomenclature: [id number] Performed By: #### A ST, ALT, CK, [id number], T4F, HSCRP, A1C WTH eA, ESR, TSH3 ####[id number] [facility]#### LYME AB wRFX, LH, LACTATE PYRUVAT, HOMOCYS PL, NATASHA SERUM, RA, BEATRICE, ZINC,WB, ALDOLASE, NATASHA,URINE, WEST TANK, MORTEZA, CERULOP, RPR W RFX, UPE RAND, SPE, VITB6, METH ####[facility] , Alanine aminotransferase [En zymatic activity/volume] in Serum or PlasmaOrdered By: Oz Kincaid on 10-30-2023 ALT [Catalytic activity/Vol] 23 U/L Normal 7-52 [facility] Comment on above: Performed By: #### A ST, ALT, CK, [id number], T4F, HSCRP, A1C WTH eA, ESR, TSH3 ####[id number] [place]#### LYME AB wRFX, LH, LACTATE PYRUVAT, HOMOCYS PL, NATASHA SERUM, RA, BEATRICE, ZINC,WB, ALDOLASE, NATASHA,URINE, WEST TANK, MORTEZA, CERULOP, RPR W RFX, UPE RAND, SPE, VITB6, METH ####[facility] , Albumin [Mass/volume] in Ser um or PlasmaOrdered By: Oz Kincaid on 10-30-2023 Albumin [Mass/Vol] 4.2 g/dL Normal 2.9-4.4 [facility] Comment on above: Performed By: #### A ST, ALT, CK, [id number], T4F, HSCRP, A1C WTH eA, ESR, TSH3 ####[id number] [facility]#### LYME AB wRFX, LH, LACTATE PYRUVAT, HOMOCYS PL, NATASHA SERUM, RA, BEATRICE, ZINC,WB, ALDOLASE, NATASHA,URINE, WEST TANK, MORTEZA, CERULOP, RPR W RFX, UPE RAND, SPE, VITB6, METH ####[facility] , Albumin/Protein.total in 24 hour Urine by ElectrophoresisOrdered By: Oz Kincaid on 10-30-2023 Albumin Elph (24H U) [Mass fraction] 35.7 % . [facility] Aldolaseon 10-30-2023 Aldolase 5.0 U/L Normal 3.3-10.3 [facility] Comment on above: Result Comment: Perf ormed at: - [facility] [address] [id number] Loading Checker: Yuri Osullivan PhD, Phone: [phone] BY:[address] [id number] MEDICAL DIRECTORSADAF STANTON M.D. Performed By: #### A ST, ALT, CK, [id number], T4F, HSCRP, A1C WT eA, ESR, TSH3 ####[facility] [place], [place] [address] [facility]#### LYME AB wRFX, LH, LACTATE PYRUVAT, HOMOCYS PL, NATASHA SERUM, RA, BEATRICE, ZINC,WB, ALDOLASE, NATASHA,URINE, WEST TANK, MORTEZA, CERULOP, RPR W RFX, UPE RAND, SPE, VITB6, METH ####[facility] , Alpha tocopherol [Mass/volum e] in Serum or PlasmaOrdered By: Oz Kincaid on 10-30-2023 Alpha tocopherol [Mass/Vol] 8.7 mg/L Low 9.0-29.0 [facility] Comment on above: This test was calderon cristina and its performance characteristicsdetermined by [employer]. It has not been cleared orapproved by the Food and Drug Administration. Aspartate aminotransferase [ Enzymatic activity/volume] in Serum or PlasmaOrdered By: Oz Kincaid on 10-30-2023 AST [Catalytic activity/Vol] 26 U/L Normal 13-39 [facility] Comment on above: Performed By: #### A ST, ALT, CK, [id number], T4F, HSCRP, A1C WTH eA, ESR, TSH3 ####[facility] [address]#### LYME AB wRFX, LH, LACTATE PYRUVAT, HOMOCYS PL, NATASHA SERUM, RA, BEATRICE, ZINC,WB, ALDOLASE, NATASHA,URINE, WEST TANK, MORTEZA, CERULOP, RPR W RFX, UPE RAND, SPE, VITB6, METH ####[facility] , Borrelia burgdorferi Ab [Int erpretation] in SerumOrdered By: Oz Kincaid on 10-30-2023 B. burgdorferi Ab (S) [Interp] N/A [facility] Borrelia burgdorferi IgG Ab [Presence] in Serum or Plasma by ImmunoassayOrdered By: Oz Kincaid on 10-30-2023 B. burgdorferi IgG IA Ql N/A [facility] Borrelia burgdorferi IgG+IgM Ab [Presence] in Serum by ImmunoassayOrdered By: Oz Kincaid on 10-30-2023 B. burgdorferi IgG+IgM IA Ql (S) Negative Negative [facility] Comment on above: Lyme antibodies not detected. Reflex testing is notindicated.No laboratory evidence of infection with B. burgdorferi(Lyme disease). Negative results may occur in patientsrecently infected (less than or equal to 14 days) with B.burgdorferi. If recent infection is suspected, repeattesting on a new sample collected in 7 to 14 days isrecommended.Performed at: [address] [id number] Director: Yuri Osullivan PhD, Phone: [phone] Lyme antibodies not detected. Reflex testing is notindicated.No laboratory evidence of infection with B. burgdorferi(Lyme disease). Negative results may occur in patientsrecently infected (less than or equal to 14 days) with B.burgdorferi. If recent infection is suspected, repeattesting on a new sample collected in 7 to 14 days isrecommended.Performed at: [facility] [id number] Director: Yuri Osullivan PhD, Phone: [phone] Lyme antibodies not detected. Reflex testing is [...] in 7 to 14 days isrecommended.Performed at: [facility] [id number] Director: Yuri Osullivan PhD, Phone: [phone] Borrelia burgdorferi IgM Ab [Presence] in Serum or Plasma by ImmunoassayOrdered By: Oz Kincaid on 10-30-2023 B. burgdorferi IgM IA Ql N/A [facility] C reactive protein [Mass/vol ume] in Serum or Plasma by High sensitivity methodOrdered By: Oz Kincaid on 10-30-2023 CRP High sensitivity method [Mass/Vol] 2.2 mg/L High 0.0-0.9 [facility] Comment on above: Cardiovascular Risk Classification (AHA/CDC)hsCRP [...] of CVD risk. CT biopsyOrdered By: Oz ngo on 10-30-2023 CT biopsy 5.0 U/L 3.3-10.3 [facility] Comment on above: Performed at: - [facility] [address] [id number] Director: Yuri Osullivan PhD, Phone: [phone] Ceruloplasminon 10-30-2023 Ceruloplasmin 30.1 mg/dL Normal 19.0-39.0 [facility] Comment on above: Result Comment: Perf ormed at: [employer] - [facility] [address] [id number] Loading Checker: Yuri Osullivan PhD, Phone: [phone] BY:[address] [place], [place] [phone] MEDICAL DIRECTORSADAF STANTON M.D. Performed By: #### A ST, ALT, CK, [id number], T4F, HSCRP, A1C WTH eA, ESR, TSH3 ####[facility] [address] [place] [address]#### LYME AB wRFX, LH, LACTATE PYRUVAT, HOMOCYS PL, NATASHA SERUM, RA, BEATRICE, ZINC,WB, ALDOLASE, NATASHA,URINE, WEST TANK, MORTEZA, CERULOP, RPR W RFX, UPE RAND, SPE, VITB6, METH ####[facility] , Creatine kinase [Enzymatic a ctivity/volume] in Serum or PlasmaOrdered By: Oz Kincaid on 10-30-2023 CK [Catalytic activity/Vol] 46 U/L Normal 30-223 [facility] Comment on above: Result Comment: PERF ORMED BY:[address] [place], [place] [phone] MEDICAL DIRECTORSADAF STANTON M.D. Performed By: #### A ST, ALT, CK, [id number], T4F, HSCRP, A1C WTH eA, ESR, TSH3 ####[id number] [place]#### LYME AB wRFX, LH, LACTATE PYRUVAT, HOMOCYS PL, NATASHA SERUM, RA, BEATRICE, ZINC,WB, ALDOLASE, NATASHA,URINE, WEST TANK, MORTEZA, CERULOP, RPR W RFX, UPE RAND, SPE, VITB6, METH ####[facility] , Erythrocyte Sedimentation Ra abner 10-30-2023 ESR (Bld) [Velocity] 26 mm/h Normal 0-29 [facility] Comment on above: Result Comment: PERF ORMED BY:[address]KyreeCONWAY SPRINGS, [place] [id number] MEDICAL DIRECTORSADAF STANTON M.D. Performed By: #### A ST, ALT, CK, [id number], T4F, HSCRP, A1C WTH eA, ESR, TSH3 ####[id number] [facility]#### LYME AB wRFX, LH, LACTATE PYRUVAT, HOMOCYS PL, NATASHA SERUM, RA, BEATRICE, ZINC,WB, ALDOLASE, NATASHA,URINE, WEST TANK, MORTEZA, CERULOP, RPR W RFX, UPE RAND, SPE, VITB6, METH ####[facility] , Erythrocyte sedimentation ra te by Photometric methodOrdered By: Oz Kincaid on 10-30-2023 ESR Photometric method (Bld) [Velocity] 26 mm/hr 0-29 [facility] Folate [Mass/volume] in Seru m or PlasmaOrdered By: Oz Kincaid on 10-30-2023 Folate [Mass/Vol] 34.0 ng/mL >5.9 [facility] Comment on above: Folate reference ran ge: >5.9 ng/mlThe WHO technical consultation on folate and vitamin b27onobedrzkblu has determined that folate concentrations lessthan 4 ng/ml are considered deficient. Gamma globulin/Protein.total in 24 hour Urine by ElectrophoresisOrdered By: Oz Kincaid on 10-30-2023 Gamma globulin Elph (24H U) [Mass fraction] 23.2 % . [facility] Gamma-tocopherol measurement (mass/volume)Ordered By: Oz Kincaid on 10-30-2023 Gamma tocopherol [Mass/Vol] 0.7 mg/L 0.5-4.9 [facility] Comment on above: This test was develo ped and its performance characteristicsdetermined by [facility]. It has not been cleared orapproved by the Food and Drug Administration.Reference intervals for alpha and gamma-tocopheroldetermined from National Health and Nutrition ExaminationSurvey, 0103-3429. Individuals with alpha-tocopherol levelsless than 5.0 mg/L are considered vitamin E deficient. Glucose mean value [Mass/vol ume] in Blood Estimated from glycated hemoglobinOrdered By: Oz Kincaid on 10-30-2023 Average glucose Estimated from glycated hemoglobin (Bld) [Mass/Vol] 143 mg/dL [facility] Hemoglobin A1c percentageOrd ered By: Oz Kincaid on 10-30-2023 HbA1c (Bld) [Mass fraction] 6.6 % High 4.3-5.6 [facility] Comment on above: Increased risk for d iabetes: 5.7 - 6.4diabetes: >6.4glycemic control for adults with diabetes: <7.0 Result Comment: Incr eased risk for diabetes: 5.7 - 6.4 diabetes: >6.4 glycemic control for adults with diabetes: <7.0 Performed By: #### A ST, ALT, CK, [id number], T4F, HSCRP, A1C WTH eA, ESR, TSH3 ####[facility] [address] [id number] [facility]#### LYME AB wRFX, LH, LACTATE PYRUVAT, HOMOCYS PL, NATASHA SERUM, RA, BEATRICE, ZINC,WB, ALDOLASE, NATASHA,URINE, WEST TANK, MORTEZA, CERULOP, RPR W RFX, UPE RAND, SPE, VITB6, METH ####[facility] , High Sensitive CRPon 024 High Sensitive CRP 2.2 mg/L High 0.0-0.9 [facility] Comment on above: Result [...] of this marker for estimation of CVD risk.PERFORMED BY:[address] [place], [place] [phone] MEDICAL DIRECTORSADAF STANTON M.D. Performed By: #### A ST, ALT, CK, [id number], T4F, HSCRP, A1C WTH eA, ESR, TSH3 ####[address]#### LYME AB wRFX, LH, LACTATE PYRUVAT, HOMOCYS PL, NATASHA SERUM, RA, BEATRICE, ZINC,WB, ALDOLASE, NATASHA,URINE, WEST TANK, MORTEZA, CERULOP, RPR W RFX, UPE RAND, SPE, VITB6, METH ####[facility] , Homocysteine, Plasma/Serumon 10-30-2023 Homocysteine, Plasma/Serum 20.7 umol/L High 0.0-17.2 [facility] Comment on above: Result Comment: Perf ormed at: - [facility] [address] [id number] Loading Checker: Yuri Osullivan PhD, Phone: [phone] Performed By: #### A ST, ALT, CK, [id number], T4F, HSCRP, A1C WTH eA, ESR, TSH3 ####[address]#### LYME AB wRFX, LH, LACTATE PYRUVAT, HOMOCYS PL, NATASHA SERUM, RA, BEATRICE, ZINC,WB, ALDOLASE, NATASHA,URINE, WEST TANK, MORTEZA, CERULOP, RPR W RFX, UPE RAND, SPE, VITB6, METH ####[facility] , IgA [Mass/volume] in Serum o r PlasmaOrdered By: Oz Kincaid on 10-30-2023 IgA [Mass/Vol] 265 mg/dL 87-352 [facility] IgG [Mass/volume] in Serum o r PlasmaOrdered By: Oz Kincaid on 10-30-2023 IgG [Mass/Vol] 1034 mg/dL [phone] [facility] IgM [Mass/volume] in Serum o r PlasmaOrdered By: Oz Codi on 10-30-2023 IgM [Mass/Vol] 48 mg/dL 26-217 [facility] Comment on above: Performed at: [employer] [address] [id number] Director: Yuri Osullivan PhD, Phone: [phone] Immunofixation for UrineOrde red By: Oz Kincaid on 10-30-2023 Interpretation Immunofixation (U) [Interp] See comment . [facility] Comment on above: No monoclonality det ected.Performed at: [facility] [id number] Director: Yuri Osullivan PhD, Phone: [phone] Immunofixation, (NATASHA), Urine on 10-30-2023 Immunofixation, (NATASHA), Urine Normal . [facility] Comment on above: Result Comment: No m onoclonality detected. Performed at: [facility] [facility] [id number] Loading Checker: Yuri Osullivan PhD, Phone: [phone] Performed By: #### A ST, ALT, CK, [id number], T4F, HSCRP, A1C WTH eA, ESR, TSH3 ####[facility] [id number]#### LYME AB wRFX, LH, LACTATE PYRUVAT, HOMOCYS PL, NATASHA SERUM, RA, BEATRICE, ZINC,WB, ALDOLASE, NATASHA,URINE, WEST TANK, MORTEZA, CERULOP, RPR W RFX, UPE RAND, SPE, VITB6, METH ####[facility] , Immunofixation,Serumon 10-29 Immunofixation, Serum Normal . [facility] Comment on above: Result Comment: No m onoclonality detected. Performed By: #### A ST, ALT, CK, [id number], T4F, HSCRP, A1C WTH eA, ESR, TSH3 ####[facility]#### LYME AB wRFX, LH, LACTATE PYRUVAT, HOMOCYS PL, NATASHA SERUM, RA, BEATRICE, ZINC,WB, ALDOLASE, NATASHA,URINE, WEST TANK, MORTEZA, CERULOP, RPR W RFX, UPE RAND, SPE, VITB6, METH ####[facility] , Immunoglobulin A, Serum 265 mg/dL Normal 87-352 [facility] Comment on above: Performed By: #### A ST, ALT, CK, [id number], T4F, HSCRP, A1C WTH eA, ESR, TSH3 ####[address] [place] [address] [place]#### LYME AB wRFX, LH, LACTATE PYRUVAT, HOMOCYS PL, NATASHA SERUM, RA, BEATRICE, ZINC,WB, ALDOLASE, NATASHA,URINE, WEST TANK, MORTEZA, CERULOP, RPR W RFX, UPE RAND, SPE, VITB6, METH ####[facility] , Immunoglobulin G 1034 mg/dL Normal 586-1602 [facility] Comment on above: Performed By: #### A ST, ALT, CK, [id number], T4F, HSCRP, A1C WTH eA, ESR, TSH3 ####[address] [place] [address] [place]#### LYME AB wRFX, LH, LACTATE PYRUVAT, HOMOCYS PL, NATASHA SERUM, RA, BEATRICE, ZINC,WB, ALDOLASE, NATASHA,URINE, WEST TANK, MORTEZA, CERULOP, RPR W RFX, UPE RAND, SPE, VITB6, METH ####[facility] , Immunoglobulin M, Serum 48 mg/dL Normal 26-217 [facility] Comment on above: Result Comment: Perf ormed at: - [facility] [address] [id number] Loading Checker: Yuri Osullivan PhD, Phone: [phone] Performed By: #### A ST, ALT, CK, [id number], T4F, HSCRP, A1C WTH eA, ESR, TSH3 ####[facility]#### LYME AB wRFX, LH, LACTATE PYRUVAT, HOMOCYS PL, NATASHA SERUM, RA, BEATRICE, ZINC,WB, ALDOLASE, NATASHA,URINE, WEST TANK, MORTEZA, CERULOP, RPR W RFX, UPE RAND, SPE, VITB6, METH ####[facility] , Lactate and Pyruvateon 10-29 Lactic Acid, Plasma Normal . [facility] Comment on above: Result Comment: Test not performed. Supernatant is required. CONTACTED YOUR FACILity on 11-05-2023 Performed By: #### A ST, ALT, CK, [id number], T4F, HSCRP, A1C WTH eA, ESR, TSH3 ####[place] [address]#### LYME AB wRFX, LH, LACTATE PYRUVAT, HOMOCYS PL, NATASHA SERUM, RA, BEATRICE, ZINC,WB, ALDOLASE, NATASHA,URINE, WEST TANK, MORTEZA, CERULOP, RPR W RFX, UPE RAND, SPE, VITB6, METH ####[facility] , Pyruvic Acid, Blood Normal . [facility] Comment on above: Result Comment: Test not performedPERFORMED BY:[address] [id number] MEDICAL DIRECTORSADAF STANTON M.D. Performed By: #### A ST, ALT, CK, [id number], T4F, HSCRP, A1C WTH eA, ESR, TSH3 ####[facility] [id number] [place] [id number] [place]#### LYME AB wRFX, LH, LACTATE PYRUVAT, HOMOCYS PL, NATASHA SERUM, RA, BEATRICE, ZINC,WB, ALDOLASE, NATASHA,URINE, WEST TANK, MORTEZA, CERULOP, RPR W RFX, UPE RAND, SPE, VITB6, METH ####[facility] , Luteinizing Hormoneon 2023 Luteinizing Hormone 60.4 m[iU]/mL High 7.7-58.5 e [facility] Comment on above: Result Comment: Adul t Female Range Follicular phase 2.4 - 12.6 Ovulation phase 14.0 - 95.6 Luteal phase 1.0 - 11.4 Postmenopausal 7.7 - 58.5 Performed By: #### A ST, ALT, CK, [id number], T4F, HSCRP, A1C WTH eA, ESR, TSH3 ####[facility] [place] [id number] [facility]#### LYME AB wRFX, LH, LACTATE PYRUVAT, HOMOCYS PL, NATASHA SERUM, RA, BEATRICE, ZINC,WB, ALDOLASE, NATASHA,URINE, WEST TANK, MORTEZA, CERULOP, RPR W RFX, UPE RAND, SPE, VITB6, METH ####[facility] , Lyme, Total Ab with Reflexon 10-30-2023 Lyme Total Antibody Negative Normal Negative [facility] Comment on above: Result Comment: [...] to 14 days is recommended. Performed at: [address] [id number] Loading Checker: Yuri Osullivan PhD, Phone: [phone] Lyme antibodies not detected. Reflex testing is not indicated. No laboratory evidence of infection with B. burgdorferi (Lyme disease). Negative results may occur in patients recently infected (less than or equal to 14 days) with B. burgdorferi. If recent infection is suspected, repeat testing on a new sample collected in 7 to 14 days is recommended. --- 11/06/236 --- Lyme Total Ab previously reported as: [...] to 14 days is recommended. Performed at: [address] [id number] Loading Checker: Yuri Osullivan PhD, Phone: [phone] Performed By: #### A ST, ALT, CK, [id number], T4F, HSCRP, A1C WTH eA, ESR, TSH3 ####[facility] Gin[address]#### LYME AB wRFX, LH, LACTATE PYRUVAT, HOMOCYS PL, NATASHA SERUM, RA, BEATRICE, ZINC,WB, ALDOLASE, NATASHA,URINE, WEST TANK, MORTEZA, CERULOP, RPR W RFX, UPE RAND, SPE, VITB6, METH ####[facility] , Methylmalonic Acidon 024 Methylmalonic Acid 247 Normal 0-378 [facility] Comment on above: Result Comment: This test was developed and its performance characteristics determined by [facility]. It has not been cleared or approved by the Food and Drug Administration. Performed at: [address] [id number] Loading Checker: Christine Pham MD, Phone: [phone] This test was developed and its performance characteristics determined by [facility]. It has not been cleared or approved by the Food and Drug Administration. --- 11/06/23 1236 --- Methylmal Acid previously reported as: 247 nmol/L This test was developed and its performance characteristics determined by [facility]. It has not been cleared or approved by the Food and Drug Administration. Performed at: - [facility] [address], [place], [place] [id number] Loading Checker: Christine Pham MD, Phone: [phone] Performed By: #### A ST, ALT, CK, [id number], T4F, HSCRP, A1C WTH eA, ESR, TSH3 ####[facility] [id number]#### LYME AB wRFX, LH, LACTATE PYRUVAT, HOMOCYS PL, NATASHA SERUM, RA, BEATRICE, ZINC,WB, ALDOLASE, NATASHA,URINE, WEST TANK, MORTEZA, CERULOP, RPR W RFX, UPE RAND, SPE, VITB6, METH ####[facility] , No Panel InformationOrdered By: Oz Kincaid on 10-30-2023 Anti-Nuclear Antibody Comment 2 See comment . [facility] Comment on above: Pattern Potential Di sease Association Homogeneous Systemic Lupus Erythematosus, Drug Induced Systemic Lupus Erythematosus, Chronic Autoimmune hepatitis, Juvenile Idiopathic Arthritis Speckled Sjogren Syndrome, Systemic Lupus Erythematosus, Subacute Cutaneous Lupus, Lupus, Congenital Heart Block, Mixed Connective Tissue Disease, Scleroderma-diffuse, Scleroderma-Autoimmune Myositis Overlap Syndrome, Systemic Lupus Wogxqcohtamzw-Irtvxhjqtgd-Lkiyipnmxs Myositis Overlap Syndrome, Systemic Autoimmune Rheumatic Disease, [...] Cytopenias, Linear Scleroderma, Antiphospholipid Syndrome Performed at: [facility] Lab[address] [id number] Director: Christine Pham MD, Phone: [phone] at: [facility] Lab[address] [id number] Director: Yuri Osullivan PhD, Phone: [phone] Pattern Potential Di charlese Association Homogeneous Systemic Lupus Erythematosus, Drug Induced Systemic Lupus Erythematosus, Chronic Autoimmune hepatitis, Juvenile Idiopathic Arthritis Speckled Sjogren Syndrome, Systemic Lupus Erythematosus, Subacute Cutaneous Lupus, Lupus, Congenital Heart Block, Mixed Connective Tissue Disease, Scleroderma-diffuse, Scleroderma-Autoimmune Myositis Overlap Syndrome, Systemic Lupus Ckptvttwpmgxb-Dvuptarkizx-Oboaaklunk Myositis Overlap Syndrome, Systemic Autoimmune Rheumatic Disease, [...] Cytopenias, Linear Scleroderma, Antiphospholipid Syndrome Performed at: [address] [id number] Director: Christine Pham MD, Phone: [phone] at: CB - [facility] Nbi[address] [place], [place] [id number] Director: Yuri Osullivan PhD, Phone: [phone] Pattern Potential Disease Association Homogeneous Systemic Lupus Erythematosus, Drug Induced Systemic Lupus Erythematosus, Chronic Autoimmune hepatitis, Juvenile Idiopathic Arthritis Speckled Sjogren Syndrome, Systemic Lupus Erythematosus, Subacute Cutaneous Lupus, Lupus, Congenital Heart Block, Mixed Connective Tissue Disease, Scleroderma-diffuse, Scleroderma-Autoimmune Myositis Overlap Syndrome, Systemic Lupus Vvrxhhlhrohud-Sjonumxjiyn-Bentbgbpwl Myositis Overlap Syndrome, Systemic Autoimmune Rheumatic Disease, [...] Cytopenias, Linear Scleroderma, Antiphospholipid Syndrome Performed at: [facility] [address] [id number] Director: Yuri Osullivan PhD, Phone: [phone] at: [address] [place], [place] [id number] Director: Christine Pham MD, Phone: [phone] --- 11/06/23 1236 ---BEATRICE IFA Note 1 previously reported as: Pattern Potential Disease Association Homogeneous Systemic Lupus Erythematosus, Drug Induced Systemic Lupus Erythematosus, Chronic Autoimmune hepatitis, Juvenile Idiopathic Arthritis Speckled Sjogren Syndrome, Systemic Lupus Erythematosus, Subacute Cutaneous Lupus, Lupus, Congenital Heart Block, Mixed Connective Tissue Disease, Scleroderma-diffuse, Scleroderma-Autoimmune Myositis Overlap Syndrome, Systemic Lupus Ggwllirjgwbow-Xsttidxtfzg-Tfmvtgbmkj Myositis Overlap Syndrome, Systemic Autoimmune Rheumatic Disease, [...] (more content not included)... Lactate/Pyruvate Interpretation N/A [facility] Plasma Lactic Acid, Venous See comment . [facility] Comment on above: Test not performed. Supernatant is required.CONTACTED YOUR FACILity on 11-05-2023 Protein Electrophoresis M-Meir Not observed g/dL Not Observed [facility] Protein Electrophoresis Note See comment . [facility] Comment on above: Protein electrophore sis scan will follow via computer,mail, or historical site guide delivery. Pyruvic Acid See comment . [facility] Comment on above: Test not performed Serum Immunofixation See comment . [facility] Comment on above: No monoclonality det ected. Urine Random Prot Electrophor Note See comment . [facility] Comment on above: Protein electrophore sis scan will follow via computer,mail, or historical site guide delivery.Performed at: [facility] [id number] Director: Yuri Osullivan PhD, Phone: [phone] Whole Blood Zinc 909 ug/dL High 440-860 [facility] Comment on above: This test was develo ped and its performance characteristicsdetermined by [facility]. It has not been cleared orapproved by the Food and Drug Administration.Performed at: [address] [id number] Director: Christine Pham MD, Phone: [phone] This test was develo ped and its performance characteristicsdetermined by [facility]. It has not been cleared orapproved by the Food and Drug Administration.Performed at: [address] [id number] Director: Christine Pham MD, Phone: [phone] This test was developed and its performance characteristicsdetermined by [facility]. It has not been cleared orapproved by the Food and Drug Administration. --- 11/06/23 1236 ---Zinc,WB previously reported as: 909 H ug/dLThis test was developed and its performance characteristicsdetermined by [facility]. It has not been cleared orapproved by the Food and Drug Administration.Performed at: [address] [id number] Director: Christine Pham MD, Phone: [phone] Protein Electro, Random Urin marta 10-30-2023 Albumin, Urine 35.7 % Normal . [facility] Comment on above: Performed By: #### A ST, ALT, CK, [id number], T4F, HSCRP, A1C WTH eA, ESR, TSH3 ####[facility] [address] [place] [id number] [facility]#### LYME AB wRFX, LH, LACTATE PYRUVAT, HOMOCYS PL, NATASHA SERUM, RA, BEATRICE, ZINC,WB, ALDOLASE, NATASHA,URINE, WEST TANK, MORTEZA, CERULOP, RPR W RFX, UPE RAND, SPE, VITB6, METH ####[facility] , Cnhfy-8-Jnmaxrvy, Urine 0.4 % Normal . [facility] Comment on above: Performed By: #### A ST, ALT, CK, [id number], T4F, HSCRP, A1C WTH eA, ESR, TSH3 ####[address]#### LYME AB wRFX, LH, LACTATE PYRUVAT, HOMOCYS PL, NATASHA SERUM, RA, BEATRICE, ZINC,WB, ALDOLASE, NATASHA,URINE, WEST TANK, MORTEZA, CERULOP, RPR W RFX, UPE RAND, SPE, VITB6, METH ####[facility] , Zaiqb-1-Aruxbtek, Urine 8.9 % Normal . T kan [facility] Comment on above: Performed By: #### A ST, ALT, CK, [id number], T4F, HSCRP, A1C WTH eA, ESR, TSH3 ####[address]#### LYME AB wRFX, LH, LACTATE PYRUVAT, HOMOCYS PL, NATASHA SERUM, RA, BEATRICE, ZINC,WB, ALDOLASE, NATASHA,URINE, WEST TANK, MORTEZA, CERULOP, RPR W RFX, UPE RAND, SPE, VITB6, METH ####[facility] , Beta Globulin, Urine 31.7 % Normal . [facility] Comment on above: Performed By: #### A ST, ALT, CK, [id number], T4F, HSCRP, A1C WTH eA, ESR, TSH3 ####[address]#### LYME AB wRFX, LH, LACTATE PYRUVAT, HOMOCYS PL, NATASHA SERUM, RA, BEATRICE, ZINC,WB, ALDOLASE, NATASHA,URINE, WEST TANK, MORTEZA, CERULOP, RPR W RFX, UPE RAND, SPE, VITB6, METH ####[facility] , Gamma Globulin, Urine 23.2 % Normal . [facility] Comment on above: Performed By: #### A ST, ALT, CK, [id number], T4F, HSCRP, A1C WTH eA, ESR, TSH3 ####[facility] [place] [address] [place]#### LYME AB wRFX, LH, LACTATE PYRUVAT, HOMOCYS PL, NATASHA SERUM, RA, BEATRICE, ZINC,WB, ALDOLASE, NATASHA,URINE, WEST TANK, MORTEZA, CERULOP, RPR W RFX, UPE RAND, SPE, VITB6, METH ####[facility] , M-Meir % Not Observed Normal Not Observed [facility] Comment on above: Performed By: #### A ST, ALT, CK, [id number], T4F, HSCRP, A1C WTH eA, ESR, TSH3 ####[address]#### LYME AB wRFX, LH, LACTATE PYRUVAT, HOMOCYS PL, NATASHA SERUM, RA, BEATRICE, ZINC,WB, ALDOLASE, NATASHA,URINE, WEST TANK, MORTEZA, CERULOP, RPR W RFX, UPE RAND, SPE, VITB6, METH ####[facility] , Please Note: Normal . [facility] Comment on above: Result Comment: Prot ein electrophoresis scan will follow via computer, mail, or historical site guide delivery. Performed at: [address] [id number] Loading Checker: Yuri Osullivan PhD, Phone: [phone] BY:[address] [place]URELMitziKenishaCONWAY SPR[place], [place] [phone] MEDICAL DIRECTORSADAF STANTON M.D. Performed By: #### A ST, ALT, CK, [id number], T4F, HSCRP, A1C WTH eA, ESR, TSH3 ####[place] [id number] [place]#### LYME AB wRFX, LH, LACTATE PYRUVAT, HOMOCYS PL, NATASHA SERUM, RA, BEATRICE, ZINC,WB, ALDOLASE, NATASHA,URINE, WEST TANK, MORTEZA, CERULOP, RPR W RFX, UPE RAND, SPE, VITB6, METH ####[facility] , Protein Electrophoresis, Ser umon 10-30-2023 Fhbyb-2-Auscqajj 0.3 g/dL Normal 0.0-0.4 [facility] Comment on above: Performed By: #### A ST, ALT, CK, [id number], T4F, HSCRP, A1C WTH eA, ESR, TSH3 ####[address]#### LYME AB wRFX, LH, LACTATE PYRUVAT, HOMOCYS PL, NATASHA SERUM, RA, BEATRICE, ZINC,WB, ALDOLASE, NATASHA,URINE, WEST TANK, MORTEZA, CERULOP, RPR W RFX, UPE RAND, SPE, VITB6, METH ####[facility] , Hdsto-4-Ybydjoja 1.0 g/dL Normal 0.4-1.0 [facility] Comment on above: Performed By: #### A ST, ALT, CK, [id number], T4F, HSCRP, A1C WTH eA, ESR, TSH3 ####[address]#### LYME AB wRFX, LH, LACTATE PYRUVAT, HOMOCYS PL, NATASHA SERUM, RA, BEATRICE, ZINC,WB, ALDOLASE, NATASHA,URINE, WEST TANK, MORTEZA, CERULOP, RPR W RFX, UPE RAND, SPE, VITB6, METH ####[facility] , Beta Globulin 1.1 g/dL Normal 0.7-1.3 [facility] Comment on above: Performed By: #### A ST, ALT, CK, [id number], T4F, HSCRP, A1C WTH eA, ESR, TSH3 ####[place] [address] [place]#### LYME AB wRFX, LH, LACTATE PYRUVAT, HOMOCYS PL, NATASHA SERUM, RA, BEATRICE, ZINC,WB, ALDOLASE, NATASHA,URINE, WEST TANK, MORTEZA, CERULOP, RPR W RFX, UPE RAND, SPE, VITB6, METH ####[facility] , Gamma Globulin 1.1 g/dL Normal 0.4-1.8 [facility] Comment on above: Performed By: #### A ST, ALT, CK, [id number], T4F, HSCRP, A1C WTH eA, ESR, TSH3 ####[address]#### LYME AB wRFX, LH, LACTATE PYRUVAT, HOMOCYS PL, NATASHA SERUM, RA, BEATRICE, ZINC,WB, ALDOLASE, NATASHA,URINE, WEST TANK, MORTEZA, CERULOP, RPR W RFX, UPE RAND, SPE, VITB6, METH ####[facility] , M-Meir Not Observed Normal Not Observed [facility] Comment on above: Performed By: #### A ST, ALT, CK, [id number], T4F, HSCRP, A1C WTH eA, ESR, TSH3 ####[address]#### LYME AB wRFX, LH, LACTATE PYRUVAT, HOMOCYS PL, NATASHA SERUM, RA, BEATRICE, ZINC,WB, ALDOLASE, NATASHA,URINE, WEST TANK, MORTEZA, CERULOP, RPR W RFX, UPE RAND, SPE, VITB6, METH ####[facility] , SPE-Note Normal . [facility] Comment on above: Result Comment: Prot ein electrophoresis scan will follow via computer, mail, or historical site guide delivery. Performed By: #### A ST, ALT, CK, [id number], T4F, HSCRP, A1C WTH eA, ESR, TSH3 ####[address]#### LYME AB wRFX, LH, LACTATE PYRUVAT, HOMOCYS PL, NATASHA SERUM, RA, BEATRICE, ZINC,WB, ALDOLASE, NATASHA,URINE, WEST TANK, MORTEZA, CERULOP, RPR W RFX, UPE RAND, SPE, VITB6, METH ####[facility] , Protein [Mass/volume] in Ser um or PlasmaOrdered By: Oz Kincaid on 10-30-2023 Protein [Mass/Vol] 7.7 g/dL Normal 6.0-8.5 [facility] Comment on above: Performed By: #### A ST, ALT, CK, [id number], T4F, HSCRP, A1C WTH eA, ESR, TSH3 ####[facility] [id number] [place] [address] [place]#### LYME AB wRFX, LH, LACTATE PYRUVAT, HOMOCYS PL, NATASHA SERUM, RA, BEATRICE, ZINC,WB, ALDOLASE, NATASHA,URINE, WEST TANK, MORTZEA, CERULOP, RPR W RFX, UPE RAND, SPE, VITB6, METH ####[facility] , Protein [Mass/volume] in Uri neOrdered By: Oz Kincaid on 10-30-2023 Protein (U) [Mass/Vol] 28.8 mg/dL Normal Not Estab. [facility] Comment on above: Performed By: #### A ST, ALT, CK, [id number], T4F, HSCRP, A1C WTH eA, ESR, TSH3 ####[facility] [place] [address] [place]#### LYME AB wRFX, LH, LACTATE PYRUVAT, HOMOCYS PL, NATASHA SERUM, RA, BEATRICE, ZINC,WB, ALDOLASE, NATASHA,URINE, WEST TANK, MORTEZA, CERULOP, RPR W RFX, UPE RAND, SPE, VITB6, METH ####[facility] , Protein.monoclonal/Protein.t otal in 24 hour Urine by ElectrophoresisOrdered By: Oz Kincaid on 10-30-2023 Protein.monoclonal Elph (24H U) [Mass fraction] Not observed % Not Observed [facility] RPR w/rfx to Quant TP Abson 10-30-2023 RPR, Rfx Quant RPR Non-Reactive Normal Non Reactive [facility] Comment on above: Result Comment: Perf ormed at: - [facility] [address] [id number] Loading Checker: Yuri Osullivan PhD, Phone: [phone] BY:[address] [place], [place] [phone] MEDICAL DIRECTORSADAF STANTON M.D. Performed By: #### A ST, ALT, CK, [id number], T4F, HSCRP, A1C WTH eA, ESR, TSH3 ####[address]#### LYME AB wRFX, LH, LACTATE PYRUVAT, HOMOCYS PL, NATASHA SERUM, RA, BEATRICE, ZINC,WB, ALDOLASE, NATASHA,URINE, WEST TANK, MORTEZA, CERULOP, RPR W RFX, UPE RAND, SPE, VITB6, METH ####[facility] , Reagin Ab [Presence] in Seru m by RPROrdered By: Oz Kincaid on 10-30-2023 Reagin Ab RPR Ql (S) Non-Reactive Non Reactive [facility] Comment on above: Performed at: [facility] - [facility]ao velazuqez [address] [id number] Director: Yuri Osullivan PhD, Phone: [phone] Rheumatoid Factoron 10-30-19 24 Rheumatoid Factor <10.0 Normal <14.0 [facility] Comment on above: Performed By: #### A ST, ALT, CK, [id number], T4F, HSCRP, A1C WTH eA, ESR, TSH3 ####[address]#### LYME AB wRFX, LH, LACTATE PYRUVAT, HOMOCYS PL, NATASHA SERUM, RA, BEATRICE, ZINC,WB, ALDOLASE, NATASHA,URINE, WEST TANK, MORTEZA, CERULOP, RPR W RFX, UPE RAND, SPE, VITB6, METH ####[facility] , Serum West Nile virus IgG an tibody detection by immunoassayOrdered By: Oz Kincaid on 10-30-2023 West Nile virus IgG IA Ql (S) Negative Negative [facility] Serum West Nile virus IgM an tibody detection by immunoassayOrdered By: Oz Kincaid on 10-30-2023 West Nile virus IgM IA Ql (S) Negative Negative [facility] Comment on above: Performed at: - L [address] [id number] Director: Christine Pham MD, Phone: [phone] Serum globulin measurement ( mass/volume)Ordered By: Oz Kincaid on 10-30-2023 Globulin (S) [Mass/Vol] 3.5 g/dL Normal 2.2-3.9 F [facility] Comment on above: Performed By: #### A ST, ALT, CK, [id number], T4F, HSCRP, A1C WTH eA, ESR, TSH3 ####[facility] Usg0644 [address]#### LYME AB wRFX, LH, LACTATE PYRUVAT, HOMOCYS PL, NATASHA SERUM, RA, BEATRICE, ZINC,WB, ALDOLASE, NATASHA,URINE, WEST TANK, MORTEZA, CERULOP, RPR W RFX, UPE RAND, SPE, VITB6, METH ####[facility] , Serum homogeneous pattern an tinuclear antibody (BEATRICE) titerOrdered By: Oz Kincaid on 10-30-2023 Homogenous nuclear Ab pattern (S) [Titer] N/A [facility] Serum nuclear antibody titer Ordered By: Oz Kincaid on 10-30-2023 Nuclear Ab (S) [Titer] Positive Abnormal . [facility] Comment on above: Negative <1:80 Borde rline 1:80 Positive >1:80 Serum or plasma albumin/glob ulin mass ratioOrdered By: Oz Kincaid on 10-30-2023 Albumin/Globulin [Mass ratio] 1.2 {ratio} Normal 0.7-1.7 [facility] Comment on above: Performed By: #### A ST, ALT, CK, [id number], T4F, HSCRP, A1C WTH eA, ESR, TSH3 ####[facility] [id number] [place] [id number] [facility]#### LYME AB wRFX, LH, LACTATE PYRUVAT, HOMOCYS PL, NATASHA SERUM, RA, BEATRICE, ZINC,WB, ALDOLASE, NATASHA,URINE, WEST TANK, MORTEZA, CERULOP, RPR W RFX, UPE RAND, SPE, VITB6, METH ####[facility] , Serum or plasma alpha 1 glob ulin measurement by electrophoresis (mass/volume)Ordered By: Oz Kincaid on 10-30-2023 Alpha 1 globulin Elph [Mass/Vol] 0.3 g/dL 0.0-0.4 [facility] Serum or plasma alpha 2 glob ulin measurement by electrophoresis (mass/volume)Ordered By: Oz Kincaid on 10-30-2023 Alpha 2 globulin Elph [Mass/Vol] 1.0 g/dL 0.4-1.0 [facility] Serum or plasma beta globuli n measurement by electrophoresis (mass/volume)Ordered By: Oz Kincaid on 10-30-2023 Beta globulin Elph [Mass/Vol] 1.1 g/dL 0.7-1.3 [facility] Serum or plasma ceruloplasmi n measurement (mass/volume)Ordered By: Oz Kincaid on 10-30-2023 Ceruloplasmin [Mass/Vol] 30.1 mg/dL 19.0-39.0 [facility] Comment on above: Performed at: [employer] [place], [place] [id number] Director: Yuri Osullivan PhD, Phone: [phone] Serum or plasma gamma globul in measurement by electrophoresis (mass/volume)Ordered By: Oz Kincaid on 10-30-2023 Gamma globulin Elph [Mass/Vol] 1.1 g/dL 0.4-1.8 [facility] Serum or plasma homocysteine measurement (moles/volume)Ordered By: Oz Kincaid on 10-30-2023 Homocysteine [Moles/Vol] 20.7 umol/L High 0.0-17.2 [facility] Comment on above: Performed at: [employer] [place], [place] [id number] Director: Yuri Osullivan PhD, Phone: [phone] Serum or plasma lutropin coleman surement (units/volume)Ordered By: Oz Kincaid on 10-30-2023 Lutropin Qn 60.4 m[IU]/mL High 7.7-58.5 [facility] Comment on above: Adult Female Range F ollicular phase 2.4 - 12.6 Ovulation phase 14.0 - 95.6 Luteal phase 1.0 - 11.4 Postmenopausal 7.7 - 58.5 Serum or plasma methylmalona te measurement (moles/volume)Ordered By: Oz Kincaid on 10-30-2023 Methylmalonate [Moles/Vol] 247 nmol/L 0-378 [facility] Comment on above: This test was develo ped and its performance characteristicsdetermined by [facility]. It has not been cleared orapproved by the Food and Drug Administration.Performed at: [address] [id number] Director: Christine Pham MD, Phone: [phone] This test was develo ped and its performance characteristicsdetermined by [facility]. It has not been cleared orapproved by the Food and Drug Administration.Performed at: [address] [id number] Director: Christine Pham MD, Phone: [phone] This test was developed and its performance characteristicsdetermined by [facility]. It has not been cleared orapproved by the Food and Drug Administration. --- 11/06/23 1236 ---Methylmal Acid previously reported as: 247 nmol/LThis test was developed and its performance characteristicsdetermined by [facility]. It has not been cleared orapproved by the Food and Drug Administration.Performed at: [address] [id number] Director: Christine Pham MD, Phone: [phone] Serum or plasma pyridoxine m easurement (mass/volume)Ordered By: Oz Kincaid on 10-30-2023 Pyridoxine [Mass/Vol] 8.8 ug/L 3.4-65.2 [facility] Comment on above: This test was develo ped and its performance characteristicsdetermined by [facility]. It has not been cleared orapproved by the Food and Drug Administration. Deficiency: <3.4 Marginal: 3.4 - 5.1 Adequate: >5.1Performed at: [facility] [address] [place], [place] [id number] Director: Christine Pham MD, Phone: [phone] Serum or plasma rheumatoid f actor measurement (units/volume)Ordered By: Oz Kincaid on 10-30-2023 Rheumatoid factor Qn [IU]/mL <14.0 [facility] Serum speckled pattern antin uclear antibody (BEATRICE) titerOrdered By: Oz Kincaid on 10-30-2023 Speckled nuclear Ab pattern (S) [Titer] 1:80 . [facility] Comment on above: ICAP nomenclature: A C-2,4,5,29 Thyrotropin [Units/volume] i n Serum or PlasmaOrdered By: Oz Kincaid on 10-30-2023 TSH Qn 6.38 m[IU]/L High 0.45-5.33 [facility] Comment on above: Result Comment: PERF ORMED BY:[address] [place], [place] [id number] MEDICAL DIRECTORSADAF STANTON M.D. Performed By: #### A ST, ALT, CK, [id number], T4F, HSCRP, A1C WTH eA, ESR, TSH3 ####[facility] [address] [place] [address] [facility]#### LYME AB wRFX, LH, LACTATE PYRUVAT, HOMOCYS PL, NATASHA SERUM, RA, BEATRICE, ZINC,WB, ALDOLASE, NATASHA,URINE, WEST TANK, MORTEZA, CERULOP, RPR W RFX, UPE RAND, SPE, VITB6, METH ####[facility] , Thyroxine (T4) free [Mass/vo lume] in Serum or PlasmaOrdered By: Oz Kincaid on 10-30-2023 Free T4 [Mass/Vol] 0.89 ng/dL Normal 0.61-1.12 [facility] Comment on above: Performed By: #### A ST, ALT, CK, [id number], T4F, HSCRP, A1C WTH eA, ESR, TSH3 ####[facility] [address] [place] [address] [place]#### LYME AB wRFX, LH, LACTATE PYRUVAT, HOMOCYS PL, NATASHA SERUM, RA, BEATRICE, ZINC,WB, ALDOLASE, NATASHA,URINE, WEST TANK, MORTEZA, CERULOP, RPR W RFX, UPE RAND, SPE, VITB6, METH ####[facility] , Urine alpha 1 globulin/total protein by electrophoresisOrdered By: Oz Kincaid on 10-30-2023 Alpha 1 globulin Elph (U) [Mass fraction] 0.4 % . [facility] Urine alpha 2 globulin/total protein ratio by electrophoresisOrdered By: Oz Kincaid on 10-30-2023 Alpha 2 globulin Elph (U) [Mass fraction] 8.9 % . [facility] Urine beta globulin measurem ent by electrophoresis (mass/volume)Ordered By: Oz Kincaid on 10-30-2023 Beta globulin Elph (U) [Mass/Vol] 31.7 % . [facility] Vit. B12/Folate Profileon Folate 34.0 ng/mL Normal >5.9 [facility] Comment on above: Result Comment: Meera te reference range: >5.9 ng/ml The WHO technical consultation on folate and vitamin b12 deficiencies has determined that folate concentrations less than 4 ng/ml are considered deficient. Performed By: #### A ST, ALT, CK, [id number], T4F, HSCRP, A1C WTH eA, ESR, TSH3 ####[facility] [id number] [place] [id number] [place]#### LYME AB wRFX, LH, LACTATE PYRUVAT, HOMOCYS PL, NATASHA SERUM, RA, BEATRICE, ZINC,WB, ALDOLASE, NATASHA,URINE, WEST TANK, MORTEZA, CERULOP, RPR W RFX, UPE RAND, SPE, VITB6, METH ####[facility] , Vitamin B12 ser/plasOrdered By: Oz Kincaid on 10-30-2023 Cobalamin (Vitamin B12) [Mass/Vol] 300 pg/mL Normal 180-914 [facility] Comment on above: Performed By: #### A ST, ALT, CK, [id number], T4F, HSCRP, A1C WTH eA, ESR, TSH3 ####[facility] [place] [address] [facility] [place]#### LYME AB wRFX, LH, LACTATE PYRUVAT, HOMOCYS PL, NATASHA SERUM, RA, BEATRICE, ZINC,WB, ALDOLASE, NATASHA,URINE, WEST TANK, MORTEZA, CERULOP, RPR W RFX, UPE RAND, SPE, VITB6, METH ####[facility] , Vitamin B6on 10-30-2023 Vitamin B6 8.8 Normal 3.4-65.2 [facility] Comment on above: Result Comment: This test was developed and its performance characteristics determined by [facility]. It has not been cleared or approved by the Food and Drug Administration. Deficiency: <3.4 Marginal: 3.4 - 5.1 Adequate: >5.1 Performed at: [address] [id number] Loading Checker: Christine Pham MD, Phone: [phone] BY:[address] [place], [place] [phone] MEDICAL DIRECTORSADAF STANTON M.D. Performed By: #### A ST, ALT, CK, [id number], T4F, HSCRP, A1C WTH eA, ESR, TSH3 ####[facility] [place] [address] [facility]#### LYME AB wRFX, LH, LACTATE PYRUVAT, HOMOCYS PL, NATASHA SERUM, RA, BEATRICE, ZINC,WB, ALDOLASE, NATASHA,URINE, WEST TANK, MORTEZA, CERULOP, RPR W RFX, UPE RAND, SPE, VITB6, METH ####[facility] , Vitamin E, Alpha Gamma Tocop on 10-30-2023 Vitamin E Alpha Tocopherol 8.7 mg/L Low 9.0-29.0 [facility] Comment on above: Result Comment: This test was developed and its performance characteristics determined by [facility]. It has not been cleared or approved by the Food and Drug Administration. Performed By: #### A ST, ALT, CK, [id number], T4F, HSCRP, A1C WTH eA, ESR, TSH3 ####[facility]#### LYME AB wRFX, LH, LACTATE PYRUVAT, HOMOCYS PL, NATASHA SERUM, RA, BEATRICE, ZINC,WB, ALDOLASE, NATASHA,URINE, WEST TANK, MORTEZA, CERULOP, RPR W RFX, UPE RAND, SPE, VITB6, METH ####[facility] , Vitamin E GammaTocopherol 0.7 mg/L Normal 0.5-4.9 [facility] Comment on above: Result Comment: This test was developed and its performance characteristics determined by [facility]. It has not been cleared or approved by the Food and Drug Administration. Reference intervals for alpha and gamma-tocopherol determined from National Health and Nutrition Examination Survey, 3117-6132. Individuals with alpha-tocopherol levels less than 5.0 mg/L are considered vitamin E deficient. Performed By: #### A ST, ALT, CK, [id number], T4F, HSCRP, A1C WTH eA, ESR, TSH3 ####[facility] [place] [id number] [place]#### LYME AB wRFX, LH, LACTATE PYRUVAT, HOMOCYS PL, NATASHA SERUM, RA, BEATRICE, ZINC,WB, ALDOLASE, NATASHA,URINE, WEST TANK, MORTEZA, CERULOP, RPR W RFX, UPE RAND, SPE, VITB6, METH ####[facility] , West Nile Virus Antibodies, Son 10-30-2023 West Nile Virus Antibody IgG S Negative Normal Negative [facility] Comment on above: Performed By: #### A ST, ALT, CK, [id number], T4F, HSCRP, A1C WTH eA, ESR, TSH3 ####[facility] [id number] [place] [address] [facility]#### LYME AB wRFX, LH, LACTATE PYRUVAT, HOMOCYS PL, NATASHA SERUM, RA, BEATRICE, ZINC,WB, ALDOLASE, NATASHA,URINE, WEST TANK, MORTEZA, CERULOP, RPR W RFX, UPE RAND, SPE, VITB6, METH ####[facility] , West Nile Virus Antibody IgM S Negative Normal Negative [facility] Comment on above: Result Comment: Perf ormed at: - [address] [id number] Loading Checker: Christine Pham MD, Phone: [phone] Performed By: #### A ST, ALT, CK, [id number], T4F, HSCRP, A1C WTH eA, ESR, TSH3 ####[place] [address] [place] [address] [facility]#### LYME AB wRFX, LH, LACTATE PYRUVAT, HOMOCYS PL, NATASHA SERUM, RA, BEATRICE, ZINC,WB, ALDOLASE, NATASHA,URINE, WEST TANK, MORTEZA, CERULOP, RPR W RFX, UPE RAND, SPE, VITB6, METH ####[facility] , XR lumbar spine 6V w bending on 10-30-2023 XR lumbar spine 6V w bending Normal [facility] Zinc, Whole Bloodon 10-30-19 24 Zinc, Whole Blood 909 ug/dL High 440-860 [facility] Comment on above: Result Comment: This test was developed and its performance characteristics determined by [facility]. It has not been cleared or approved by the Food and Drug Administration. Performed at: [address] [id number] Loading Checker: Christine Pham MD, Phone: [phone] This test was developed and its performance characteristics determined by [facility]. It has not been cleared or approved by the Food and Drug Administration. --- 11/06/23 1236 --- Zinc,WB previously reported as: 909 H ug/dL This test was developed and its performance characteristics determined by [facility]. It has not been cleared or approved by the Food and Drug Administration. Performed at: - [facility], [place], [place] [id number] Loading Checker: Christine Pham MD, Phone: [phone] Performed By: #### A ST, ALT, CK, [id number], T4F, HSCRP, A1C WTH eA, ESR, TSH3 ####[facility] [facility] [place] [address] [facility]#### LYME AB wRFX, LH, LACTATE PYRUVAT, HOMOCYS PL, NATASHA SERUM, RA, BEATRICE, ZINC,WB, ALDOLASE, NATASHA,URINE, WEST TANK, MORTEZA, CERULOP, RPR W RFX, UPE RAND, SPE, VITB6, METH ####[facility] , Capillary blood glucose steve urement by glucometer (mass/volume)Ordered By: Elva Florian on 09-14-2023 Glucose [Mass/Vol] 134 mg/dL Normal [facility] Comment on above: Random Glucose Refer ence Range is dependent on time and content of last meal. Glucose of more than 200 mg/dL in a nonstressed, ambulatory subject supports the diagnosis of Diabetes Mellitus. Result Comment: [facility] Glucose Reference Range is dependent on time and content of last meal. Glucose of more than 200 mg/dL in a nonstressed, ambulatory subject supports the diagnosis of Diabetes Mellitus.PERFORMED BY:[place] [address] [place], [place] [phone] MEDICAL DIRECTORSADAF STANTON M.D. Performed By: #### G LULS ####Point of Care testing, Glucose Poct Glucometerson 0 09-14-2023 Glucose [Mass/Vol] 168 mg/dL Normal [facility] Comment on above: Result Comment: [facility] Glucose Reference Range is dependent on time and content of last meal. Glucose of more than 200 mg/dL in a nonstressed, ambulatory subject supports the diagnosis of Diabetes Mellitus.PERFORMED BY:[place] [address] [place], [place] [phone] MEDICAL DIRECTORSADAF STANTON M.D. Performed By: #### G LULS ####Point of Care testing, Commemt1 Glu2: Cleaned Meter Normal [facility] Comment on above: Result Comment: PERF ORMED BY:[facility] [place], [place] [phone] MEDICAL DIRECTORSADAF STANTON M.D. Performed By: #### G LULS ####Point of Care testing, Glucose [Mass/Vol] 131 mg/dL Normal [facility] Comment on above: Result Comment: [facility] Glucose Reference Range is dependent on time and content of last meal. Glucose of more than 200 mg/dL in a nonstressed, ambulatory subject supports the diagnosis of Diabetes Mellitus. Performed By: #### G LULS ####Point of Care testing, No Panel InformationOrdered By: Elva Florian on 09-14-2023 Bedside Glucose Comment Glu2: cleaned meter [facility] Cholesterol [Mass/volume] in Serum or PlasmaOrdered By: Elva Florian on 09-13-2023 Cholesterol [Mass/Vol] 125 mg/dL Low 140-200 [facility] Comment on above: Chol less than 200 m g/dl low riskChol 201-239 mg/dl borderline riskChol 240 mg/dl and greater high risk Result Comment: Chol less than 200 mg/dl low risk Chol 201-239 mg/dl borderline risk Chol 240 mg/dl and greater high risk Performed By: #### L IPID, MG, TSH3 ####[facility] [address] [place] [address] [facility] Cholesterol in LDL Calc [Mas s/Vol]Ordered By: Elva Florian on 09-13-2023 Cholesterol in LDL [Mass/Vol] 59 mg/dL 0-100 [facility] Comment on above: LDL ATP III CLASSIFI CATIONLDL less than 100 mg/dL OptimalLDL 100-129 mg/dL Near or above optimalLDL 130-159 mg/dL Borderline highLDL 160-189 mg/dL HighLDL greater than 189 mg/dL Very high Cholesterol in VLDL Calc [Ma ss/Vol]Ordered By: Elva Florian on 09-13-2023 Cholesterol in VLDL [Mass/Vol] 39 mg/dL [facility] ECH echo transthoracicon ECH echo transthoracic Normal Th e [facility] Glucose Poct Glucometerson 0 09-13-2023 Commemt1 Glu2: Cleaned Meter Normal [facility] Comment on above: Result Comment: PERF ORMED BY:[place] [address] [address] [place], [place] [phone] MEDICAL DIRECTORSADAF STANTON M.D. Performed By: #### G LULS ####Point of Care testing, Glucose [Mass/Vol] 149 mg/dL Normal [facility] Comment on above: Result Comment: [employer] [facility] Glucose Reference Range is dependent on time and content of last meal. Glucose of more than 200 mg/dL in a nonstressed, ambulatory subject supports the diagnosis of Diabetes Mellitus. Performed By: #### G LULS ####Point of Care testing, Glucose [Mass/Vol] 141 mg/dL Normal [facility] Comment on above: Result Comment: [employer] [facility] Glucose Reference Range is dependent on time and content of last meal. Glucose of more than 200 mg/dL in a nonstressed, ambulatory subject supports the diagnosis of Diabetes Mellitus.PERFORMED BY:[address] [place], [place] [phone] MEDICAL GEENA STANTON M.D. Performed By: #### G LULS ####Point of Care testing, Glucose [Mass/Vol] 177 mg/dL Normal [facility] Comment on above: Result Comment: [employer] [facility] Glucose Reference Range is dependent on time and content of last meal. Glucose of more than 200 mg/dL in a nonstressed, ambulatory subject supports the diagnosis of Diabetes Mellitus.PERFORMED BY:[address] [place], [place] [phone] MEDICAL GEENA STANTON M.D. Performed By: #### G LULS ####Point of Care testing, Glucose [Mass/Vol] 140 mg/dL Normal [facility] Comment on above: Result Comment: [employer] [facility] Glucose Reference Range is dependent on time and content of last meal. Glucose of more than 200 mg/dL in a nonstressed, ambulatory subject supports the diagnosis of Diabetes Mellitus.PERFORMED BY:[address] [place], [place] [phone] MEDICAL DIRECTORSADAF STANTON M.D. Performed By: #### G LULS ####Point of Care testing, Lipid Panelon 09-13-2023 LDL Cholesterol,Calculated 59 mg/dL Normal 0-100 [facility] Comment on above: Result Comment: LDL ATP III CLASSIFICATION LDL less than 100 mg/dL Optimal LDL 100-129 mg/dL Near or above optimal LDL 130-159 mg/dL Borderline high LDL 160-189 mg/dL High LDL greater than 189 mg/dL Very high Performed By: #### L IPID, MG, TSH3 ####[place] [id number] [facility] Triglyceride w/Reflex 198 mg/dL High 0-149 [facility] Comment on above: Result Comment: TRIG ATP III CLASSIFICATION TRIG less than 150 mg/dL Normal TRIG 150-199 mg/dL Borderline high TRIG 200-500 mg/dL High TRIG greater than 500 mg/dL Very high Standard traceable to the Center for Disease Conrtrol and Prevention (CDC) test method. Performed By: #### L IPID, MG, TSH3 ####[place] [id number] [facility] VLDL CHOLESTEROL 39 mg/dL Normal [facility] Comment on above: Performed By: #### L IPID, MG, TSH3 ####[place] [id number] [facility] Magnesium [Mass/volume] in S elliot or PlasmaOrdered By: Elva Florian on 09-13-2023 Magnesium [Mass/Vol] 1.6 mg/dL Low 1.9-2.7 [facility] Comment on above: Performed By: #### L IPID, MG, TSH3 ####[place] [id number] [facility] Serum or plasma high density lipoprotein (HDL) cholesterol measurementOrdered By: Elva Florian on 09-13-2023 Cholesterol in HDL [Mass/Vol] 26 mg/dL Normal 23-92 [facility] Comment on above: HDL CHOL ATP-III CLA SSIFICATION Cardiovascular RiskHDL > or equal to 60 mg/dL LOWHDL < 40 mg/dL HIGH Result Comment: HDL CHOL ATP-III CLASSIFICATION Cardiovascular Risk HDL > or equal to 60 mg/dL LOW HDL < 40 mg/dL HIGH Performed By: #### L IPID, MG, TSH3 ####[place] [id number] Serum or plasma total choles terol/high density lipoprotein (HDL) cholesterol mass ratOrdered By: Elva Daphnebari on 09-13-2023 Cholesterol.total/Monica sterol in HDL [Mass ratio] 4.8 {ratio} Normal <5.0 [facility] Comment on above: Result Comment: PERF ORMED BY:[place] [address] [place], [place] [phone] MEDICAL DIRECTORSADAF STANTON M.D. Performed By: #### L IPID, MG, TSH3 ####[place] [id number] [facility] Thyrotropin [Units/volume] i n Serum or PlasmaOrdered By: Elva Florian on 09-13-2023 TSH Qn 2.48 m[IU]/L Normal 0.45-5.33 [facility] Comment on above: Result Comment: PERF ORMED BY:[place] [address] [place], [place] [phone] MEDICAL DIRECTORSADAF STANTON M.D. Performed By: #### L IPID, MG, TSH3 ####[address] [address] [facility] Triglyceride [Mass/volume] i n Serum or PlasmaOrdered By: Elva Daphnebari on 09-13-2023 Triglyceride [Mass/Vol] 198 mg/dL High 0-149 [facility] Comment on above: TRIG ATP III CLASSIF ICATIONTRIG less than 150 mg/dL NormalTRIG 150-199 mg/dL Borderline highTRIG 200-500 mg/dL High TRIG greater than 500 mg/dL Very highStandard traceable to the Center for Disease Conrtrol and Prevention (CDC) test method. Activated partial thrombopla stin time (aPTT) in platelet poor plasma by coagulation aOrdered By: Edgar Valenzuela on 09-12-2023 aPTT Coag (PPP) [Time] 29.3 s 25.1-36.5 [facility] Comment on above: A hematocrit value g reater than 55% may lead to inaccurate results in coagulation testing. Patients having hematocrit values >55% require a special collection tube for coagulation studies. Please contact the laboratory at [phone] for redraw instructions. Automated basophil %Ordered By: Edgar Valenzuela on 09-12-2023 Basophils/100 WBC (Bld) 0.9 % Normal . [facility] Comment on above: Performed By: #### B MP, HS TROP, CK, CBC, BNP, PTT, PT ####[address] Automated basophil countOrde red By: Edgar Valenzuela on 09-12-2023 Basophils (Bld) [#/Vol] 0.1 10*3/uL Normal 0.0-0.2 [facility] Comment on above: Result Comment: PERF ORMED BY:[address] [place], [place] [phone] MEDICAL DIRECTORSADAF STANTON M.D. Performed By: #### B MP, HS TROP, CK, CBC, BNP, PTT, PT ####[address] Automated blood monocyte cou ntOrdered By: Edgar Valenzuela on 09-12-2023 Monocytes (Bld) [#/Vol] 0.6 10*3/uL Normal 0.0-0.8 [facility] Comment on above: Performed By: #### B MP, HS TROP, CK, CBC, BNP, PTT, PT ####[address] Automated eosinophil %Ordere d By: Edgar Valenzuela on 09-12-2023 Eosinophils/100 WBC (Bld) 1.7 % Normal . [facility] Comment on above: Performed By: #### B MP, HS TROP, CK, CBC, BNP, PTT, PT ####[place] [id number] Automated eosinophil countOr dered By: Edgar Valenzuela on 09-12-2023 Eosinophils (Bld) [#/Vol] 0.2 10*3/uL Normal 0.0-0.45 [facility] Comment on above: Performed By: #### B MP, HS TROP, CK, CBC, BNP, PTT, PT ####[place] [id number] Automated monocyte %Ordered By: Edgar Valenzuela on 09-12-2023 Monocytes/100 WBC (Bld) 5.9 % Normal . [facility] Comment on above: Performed By: #### B MP, HS TROP, CK, CBC, BNP, PTT, PT ####[address] Automated neutrophil %Ordere d By: Edgar Valenzuela on 09-12-2023 Neutrophils/100 WBC (Bld) 71.3 % Normal . [facility] Comment on above: Performed By: #### B MP, HS TROP, CK, CBC, BNP, PTT, PT ####[place] [id number] [facility] BNP ser/plasOrdered By: Edgar Valenzuela on 09-12-2023 Natriuretic peptide B (Bld) [Mass/Vol] 112.0 pg/mL High 5-100 [facility] Comment on above: Result Comment: PERF ORMED BY:[address] [place], [place] [phone] MEDICAL DIRECTORSADAF STANTON M.D. Performed By: #### B MP, HS TROP, CK, CBC, BNP, PTT, PT ####[place] [id number] [facility] Basic Metabolic Panelon 08-27 Creatinine Clr Calc Pharmacy 73.11 Normal [facility] Comment on above: Result Comment: PERF ORMED BY:[address] [place], [place] [phone] MEDICAL DIRECTORSADAF STANTON M.D. Performed By: #### B MP, HS TROP, CK, CBC, BNP, PTT, PT ####[address] [address] [facility] GFR/1.73 sq M.predicted MDRD (S/P/Bld) [Vol rate/Area] mL/min/{1.73_m2} Normal [facility] Comment on above: Performed By: #### B MP, HS TROP, CK, CBC, BNP, PTT, PT ####[place] [id number] [facility] Calcium [Mass/volume] in Ser um or PlasmaOrdered By: Edgar Valenzuela on 09-12-2023 Calcium [Mass/Vol] 10.5 mg/dL High 8.6-10.3 [facility] Comment on above: Performed By: #### B MP, HS TROP, CK, CBC, BNP, PTT, PT ####[place] [id number] [facility] Carbon dioxide, total [Moles /volume] in Serum or PlasmaOrdered By: Edgar Valenzuela on 09-12-2023 CO2 [Moles/Vol] 25.0 mmol/L Normal 21.0-31.0 [facility] Comment on above: Performed By: #### B MP, HS TROP, CK, CBC, BNP, PTT, PT ####[place] [id number] [place] Chloride [Moles/volume] in S elliot or PlasmaOrdered By: Edgar Valenzuela on 09-12-2023 Chloride [Moles/Vol] 102 mmol/L Normal 98-107 [facility] Comment on above: Performed By: #### B MP, HS TROP, CK, CBC, BNP, PTT, PT ####[place] [id number] [facility] Complete Blood Count Auto Di ffon 09-12-2023 Mean Corpuscular HGB Conc 34.2 g/dL Normal 32.0-35.0 [facility] Comment on above: Performed By: #### B MP, HS TROP, CK, CBC, BNP, PTT, PT ####[address] Monocytes/100 WBC (Bld) 19.90 % Normal 0.00-20.00 [facility] Comment on above: Performed By: #### B MP, HS TROP, CK, CBC, BNP, PTT, PT ####[address] NRBC% 0.2 /100{WBC} Normal 0-0.5 [facility] Comment on above: Performed By: #### B MP, HS TROP, CK, CBC, BNP, PTT, PT ####[address] Creatine kinase [Enzymatic a ctivity/volume] in Serum or PlasmaOrdered By: Edgar Valenzuela on 09-12-2023 CK [Catalytic activity/Vol] 45 U/L Normal 30-223 [facility] Comment on above: Performed By: #### B MP, HS TROP, CK, CBC, BNP, PTT, PT ####[address] Creatinine [Mass/volume] in Serum or PlasmaOrdered By: Edgar Valenzuela on 09-12-2023 Creatinine [Mass/Vol] 0.84 mg/dL Normal 0.60-1.20 [facility] Comment on above: Performed By: #### B MP, HS TROP, CK, CBC, BNP, PTT, PT ####[address] ECG 12 lead ECGon 09-12-2023 ECG 12 lead ECG Normal [facility] Erythrocyte distribution wid th [Ratio] by Automated countOrdered By: Edgar Valenzuela on 09-12-2023 Erythrocyte distribution width (RBC) [Ratio] 12.7 % Normal 11.9-15.3 [facility] Comment on above: Performed By: #### B MP, HS TROP, CK, CBC, BNP, PTT, PT ####[facility] [place] [id number] [facility] Erythrocytes [#/volume] in B lood by Automated countOrdered By: Edgar Valenzuela on 09-12-2023 RBC (Bld) [#/Vol] 5.16 10*6/uL High 3.60-5.00 [facility] Comment on above: Performed By: #### B MP, HS TROP, CK, CBC, BNP, PTT, PT ####[facility] [place] [id number] [facility] Glucose Poct Glucometerson 0 09-12-2023 Glucose [Mass/Vol] 114 mg/dL Normal [facility] Comment on above: Result Comment: [facility] Glucose Reference Range is dependent on time and content of last meal. Glucose of more than 200 mg/dL in a nonstressed, ambulatory subject supports the diagnosis of Diabetes Mellitus.PERFORMED BY:[address] [place], [place] [phone] MEDICAL DIRECTORSADAF STANTON M.D. Performed By: #### G HERNÁN ####Point of Care testing, Glucose [Mass/volume] in Ser um or PlasmaOrdered By: Edgar Valenzuela on 09-12-2023 Glucose [Mass/Vol] 150 mg/dL High 70-100 [facility] Comment on above: ADA recommended refe rence rangeRandom Glucose Reference Range is dependent on time and content of last meal. Glucose of more than 200 mg/dL in a nonstressed, ambulatory subject supports the diagnosis of Diabetes Mellitus. Result Comment: [facility] Glucose Reference Range is dependent on time and content of last meal. Glucose of more than 200 mg/dL in a nonstressed, ambulatory subject supports the diagnosis of Diabetes Mellitus. ADA recommended reference range Performed By: #### B MP, HS TROP, CK, CBC, BNP, PTT, PT ####[facility] [place] [id number] [facility] HbA1c HPLC (Bld) [Mass fract ion]on 09-12-2023 HbA1c (Bld) [Mass fraction] 6.6 % [facility] Hematocrit [Volume Fraction] of Blood by Automated countOrdered By: Edgar Valenzuela on 09-12-2023 Hematocrit (Bld) [Volume fraction] 49.3 % High 34.0-46.4 [facility] Comment on above: Performed By: #### B MP, HS TROP, CK, CBC, BNP, PTT, PT ####[facility] Hemoglobin [Mass/volume] in BloodOrdered By: Edgar Valenzuela on 09-12-2023 Hemoglobin (Bld) [Mass/Vol] 16.9 g/dL High 11.8-15.4 [facility] Comment on above: Performed By: #### B MP, HS TROP, CK, CBC, BNP, PTT, PT ####[place] [id number] INR in Platelet poor plasma by Coagulation assayOrdered By: Edgar Valenzuela on 09-12-2023 INR Coag (PPP) [Relative time] 1.1 {INR} Normal [facility] Comment on above: INR Therapeutic Rang e [...] valves: 3 - 4.5 Performed By: #### B MP, HS TROP, CK, CBC, BNP, PTT, PT ####[address] Leukocytes [#/volume] correc deepika for nucleated erythrocytes in Blood by Automated counOrdered By: Edgar Valenzuela on 09-12-2023 WBC corrected for nucl RBC Auto (Bld) [#/Vol] 9.8 10*3/uL 3.8-11.6 [facility] Leukocytes [#/volume] in Blo od by Automated countOrdered By: Edgar Valenzuela on 09-12-2023 WBC (Bld) [#/Vol] 9.8 10*3/uL Normal 3.8-11.6 [facility] Comment on above: Performed By: #### B MP, HS TROP, CK, CBC, BNP, PTT, PT ####[address] Lymphocytes [#/volume] in Bl ood by Automated countOrdered By: Edgar Valenzuela on 09-12-2023 Lymphocytes (Bld) [#/Vol] 2.0 10*3/uL Normal 1.00-4.8 [facility] Comment on above: Performed By: #### B MP, HS TROP, CK, CBC, BNP, PTT, PT ####[address] Lymphocytes/100 leukocytes i n Blood by Automated countOrdered By: Edgar Valenzuela on 09-12-2023 Lymphocytes/100 WBC (Bld) 20.2 % Normal . [facility] Comment on above: Performed By: #### B MP, HS TROP, CK, CBC, BNP, PTT, PT ####[address] MCH [Entitic mass] by Automa deepika countOrdered By: Edgar Valenzuela on 09-12-2023 MCH (RBC) [Entitic mass] 32.7 pg Normal 24.7-34.3 [facility] Comment on above: Performed By: #### B MP, HS TROP, CK, CBC, BNP, PTT, PT ####[address] M[facility]C Auto (RBC) [Mass/Vol]Or dered By: Edgar Valenzuela on 09-12-2023 MCHC (RBC) [Mass/Vol] 34.2 g/dL 32.0-35.0 [facility] MCV [Entitic volume] by Auto mated countOrdered By: Edgar Valenzuela on 09-12-2023 MCV (RBC) [Entitic vol] 95.6 fL Normal 80-100 [facility] Comment on above: Performed By: #### B MP, HS TROP, CK, CBC, BNP, PTT, PT ####[facility] [id number] [place] [id number] [facility] Monocyte distribution width [Entitic volume] in Blood by AutomatedOrdered By: Edgar Valenzuela on 09-12-2023 Monocyte distribution width Auto (Bld) [Entitic vol] 19.90 % 0.00-20.00 [facility] Neutrophils [#/volume] in Bl ood by Automated countOrdered By: Edgar Valenzuela on 09-12-2023 Neutrophils (Bld) [#/Vol] 7.0 10*3/uL Normal 1.8-7.7 [facility] Comment on above: Performed By: #### B MP, HS TROP, CK, CBC, BNP, PTT, PT ####[facility] [id number] [place] [id number] [facility] No Panel InformationOrdered By: Edgar Valenzuela on 09-12-2023 Estimated GFR (CKD-EPI) > 60.0 mL/Min [facility] Creatinine Clearance (Chem 73.11 [facility] No Panel Informationon 09-11 Bedside Glucose 151 [facility] Nucleated erythrocytes [Pres ence] in Blood by Automated countOrdered By: Edgar Valenzuela on 09-12-2023 Nucleated RBC Auto Ql (Bld) 0.2 /100{WBC} 0-0.5 [facility] Partial Thromboplastin Timeo n 09-12-2023 aPTT Coag (Bld) [Time] 29.3 s Normal 25.1-36.5 Th [facility] Comment on above: Result Comment: A he matocrit value greater than 55% may lead to inaccurate results in coagulation testing. Patients having hematocrit values >55% require a special collection tube for coagulation studies. Please contact the laboratory at [phone] for redraw instructions.PERFORMED BY:[address] [place]ERR[place]BR[place], [place] [id number] MEDICAL DIRECTORSADAF STANTON M.D. Performed By: #### B MP, HS TROP, CK, CBC, BNP, PTT, PT ####[place] [id number] [facility] Platelet mean volume [Entiti c volume] in Blood by Automated countOrdered By: Edgar Valenzuela on 09-12-2023 Platelet mean volume (Bld) [Entitic vol] 9.5 fL Normal 6.3-10.7 [facility] Comment on above: Performed By: #### B MP, HS TROP, CK, CBC, BNP, PTT, PT ####[place] [id number] [facility] Platelets [#/volume] in Bloo d by Automated countOrdered By: Edgar Valenzuela on 09-12-2023 Platelets (Bld) [#/Vol] 195 10*3/uL Normal 150-450 [facility] Comment on above: Performed By: #### B MP, HS TROP, CK, CBC, BNP, PTT, PT ####[address] Potassium [Moles/volume] in Serum or PlasmaOrdered By: Edgar Valenzuela on 09-12-2023 Potassium [Moles/Vol] 4.0 mmol/L Normal 3.5-5.1 [facility] Comment on above: Performed By: #### B MP, HS TROP, CK, CBC, BNP, PTT, PT ####[place] [id number] [facility] Prothrombin time (PT)Ordered By: Edgar Valenzuela on 09-12-2023 PT Coag (PPP) [Time] 12.7 s Normal 9.0-12.9 [facility] Comment on above: A hematocrit value g reater than 55% may lead to inaccurate results in coagulation testing. Patients having hematocrit values >55% require a special collection tube for coagulation studies. Please contact the laboratory at [phone] for redraw instructions. Result Comment: A he matocrit value greater than 55% may lead to inaccurate results in coagulation testing. Patients having hematocrit values >55% require a special collection tube for coagulation studies. Please contact the laboratory at [phone] for redraw instructions. Performed By: #### B MP, HS TROP, CK, CBC, BNP, PTT, PT ####[address] Serum or plasma anion gap de terminationOrdered By: Edgar Valenzuela on 09-12-2023 Anion gap [Moles/Vol] 15.0 mmol/L Normal 6.0-15.0 [facility] Comment on above: Performed By: #### B MP, HS TROP, CK, CBC, BNP, PTT, PT ####[place] [id number] [facility] Sodium [Moles/volume] in Ser um or PlasmaOrdered By: Edgar Valenzuela on 09-12-2023 Sodium [Moles/Vol] 138 mmol/L Normal 136-145 [facility] Comment on above: Performed By: #### B MP, HS TROP, CK, CBC, BNP, PTT, PT ####[address] Troponin I High Sensitivityo n 09-12-2023 Troponin I High Sensitivity 7.3 pg/mL Normal 0.0-15.0 [facility] Comment on above: Result Comment: PERF ORMED BY:[address] [place], [place] [phone] MEDICAL DIRECTORSADAF STANTON M.D. Performed By: #### B MP, HS TROP, CK, CBC, BNP, PTT, PT ####[place] [id number] [facility] Troponin I.cardiac [Mass/vol ume] in Serum or Plasma by Detection limit <= 0.01 ng/Ordered By: Edgar Valenzuela on 09-12-2023 Troponin I.cardiac DL <= 0.01 ng/mL [Mass/Vol] 7.3 pg/mL 0.0-15.0 [facility] Urea nitrogen [Mass/volume] in Serum or PlasmaOrdered By: Edgar Valenzuela on 09-12-2023 Urea nitrogen [Mass/Vol] 11 mg/dL Normal 7-25 [facility] Comment on above: Performed By: #### B MP, HS TROP, CK, CBC, BNP, PTT, PT ####[place] [id number] [facility] XR chest 2V*on 09-12-2023 XR chest 2V* Normal [facility] Alanine aminotransferase [En zymatic activity/volume] in Serum or PlasmaOrdered By: Angelique Russell on 09-05-2023 ALT [Catalytic activity/Vol] 19 U/L Normal 7-52 [facility] Comment on above: Performed By: #### U RMACRERAT, B12, LIPID, CMP ####[address] Albumin [Mass/volume] in Ser um or Plasma by Bromocresol green (BCG) dye binding methoOrdered By: Angelique Russell on 09-05-2023 Albumin BCG dye [Mass/Vol] 4.3 g/dL 3.5-5.7 [facility] Alkaline phosphatase [Enzyma tic activity/volume] in Serum or PlasmaOrdered By: Angelique Russell on 09-05-2023 ALP [Catalytic activity/Vol] 81 U/L Normal 34-104 [facility] Comment on above: Performed By: #### U RMACRERAT, B12, LIPID, CMP ####[address] Aspartate aminotransferase [ Enzymatic activity/volume] in Serum or PlasmaOrdered By: Angelique Russell on 09-05-2023 AST [Catalytic activity/Vol] 26 U/L Normal 13-39 [facility] Comment on above: Performed By: #### U RMACRERAT, B12, LIPID, CMP ####[place] [id number] [facility] Bilirubin.total [Mass/volume ] in Serum or PlasmaOrdered By: Angelique Russell on 09-05-2023 Bilirubin [Mass/Vol] 0.7 mg/dL Normal 0.3-1.0 [facility] Comment on above: Performed By: #### U RMACRERAT, B12, LIPID, CMP ####[address] Calcium [Mass/volume] in Ser um or PlasmaOrdered By: Barbera Yvonne on 09-05-2023 Calcium [Mass/Vol] 10.2 mg/dL Normal 8.6-10.3 [facility] Comment on above: Performed By: #### U RMACRERAT, B12, LIPID, CMP ####[place] [id number] [place] [id number] [facility] Carbon dioxide, total [Moles /volume] in Serum or PlasmaOrdered By: Angelique Russell on 09-05-2023 CO2 [Moles/Vol] 28.6 mmol/L Normal 21.0-31.0 [facility] Comment on above: Performed By: #### U RMACRERAT, B12, LIPID, CMP ####[place] [address] [place] Chloride [Moles/volume] in S elliot or PlasmaOrdered By: Angelique Russell on 09-05-2023 Chloride [Moles/Vol] 102 mmol/L Normal 98-107 [facility] Comment on above: Performed By: #### U RMACRERAT, B12, LIPID, CMP ####[place] [id number] [place] Cholesterol [Mass/volume] in Serum or PlasmaOrdered By: Angelique Russell on 09-05-2023 Cholesterol [Mass/Vol] 143 mg/dL Normal 140-200 [facility] Comment on above: Chol less than 200 m g/dl low riskChol 201-239 mg/dl borderline riskChol 240 mg/dl and greater high risk Result Comment: Chol less than 200 mg/dl low risk Chol 201-239 mg/dl borderline risk Chol 240 mg/dl and greater high risk Performed By: #### U RMACRERAT, B12, LIPID, CMP ####[place] [id number] [place] Cholesterol in LDL Calc [Mas s/Vol]Ordered By: Angelique Russell on 09-05-2023 Cholesterol in LDL [Mass/Vol] 62 mg/dL 0-100 [facility] Comment on above: LDL ATP III CLASSIFI CATIONLDL less than 100 mg/dL OptimalLDL 100-129 mg/dL Near or above optimalLDL 130-159 mg/dL Borderline highLDL 160-189 mg/dL HighLDL greater than 189 mg/dL Very high Cholesterol in VLDL Calc [Ma ss/Vol]Ordered By: Angelique Russell on 09-05-2023 Cholesterol in VLDL [Mass/Vol] 51 mg/dL [facility] Comprehensive Metabolic Pane juan 09-05-2023 Albumin [Mass/Vol] 4.3 g/dL Normal 3.5-5.7 [facility] Comment on above: Performed By: #### U RMACRERAT, B12, LIPID, CMP ####[facility] [id number] GFR/1.73 sq M.predicted MDRD (S/P/Bld) [Vol rate/Area] mL/min/{1.73_m2} Normal [facility] Comment on above: Performed By: #### U RMACRERAT, B12, LIPID, CMP ####[facility] [place] [id number] [facility] Creatinine [Mass/volume] in Serum or PlasmaOrdered By: Angelique Russell on 09-05-2023 Creatinine [Mass/Vol] 0.91 mg/dL Normal 0.60-1.20 [facility] Comment on above: Performed By: #### U RMACRERAT, B12, LIPID, CMP ####[facility] [place] [id number] [facility] Creatinine [Mass/volume] in UrineOrdered By: Angelique Russell on 09-05-2023 Creatinine (U) [Mass/Vol] 118.0 mg/dL [facility] Comment on above: No reference range e stablished Glucose [Mass/volume] in Ser um or PlasmaOrdered By: Angelique Russell on 09-05-2023 Glucose [Mass/Vol] 197 mg/dL High 70-100 [facility] Comment on above: ADA recommended refe rence rangeRandom Glucose Reference Range is dependent on time and content of last meal. Glucose of more than 200 mg/dL in a nonstressed, ambulatory subject supports the diagnosis of Diabetes Mellitus. Result Comment: [facility] Glucose Reference Range is dependent on time and content of last meal. Glucose of more than 200 mg/dL in a nonstressed, ambulatory subject supports the diagnosis of Diabetes Mellitus. ADA recommended reference range Performed By: #### U RMACRERAT, B12, LIPID, CMP ####[place] [id number] [place] [id number] [facility] Lipid Panelon 09-05-2023 LDL Cholesterol,Calculated 62 mg/dL Normal 0-100 [facility] Comment on above: Result Comment: LDL ATP III CLASSIFICATION LDL less than 100 mg/dL Optimal LDL 100-129 mg/dL Near or above optimal LDL 130-159 mg/dL Borderline high LDL 160-189 mg/dL High LDL greater than 189 mg/dL Very high Performed By: #### U RMACRERAT, B12, LIPID, CMP ####[address] Triglyceride w/Reflex 256 mg/dL High 0-149 [facility] Comment on above: Result Comment: TRIG ATP III CLASSIFICATION TRIG less than 150 mg/dL Normal TRIG 150-199 mg/dL Borderline high TRIG 200-500 mg/dL High TRIG greater than 500 mg/dL Very high Standard traceable to the Center for Disease Conrtrol and Prevention (CDC) test method. Performed By: #### U RMACRERAT, B12, LIPID, CMP ####[address] VLDL CHOLESTEROL 51 mg/dL Normal [facility] Comment on above: Performed By: #### U RMACRERAT, B12, LIPID, CMP ####[place] [id number] [facility] MicroAlb Creat Ratio,Uon Creatinine, Urine (Random) 118.0 mg/dL Normal [facility] Comment on above: Result Comment: No r eference range established Performed By: #### U RMACRERAT, B12, LIPID, CMP ####[place] [id number] [facility] Microalbumin/Creatinine Ratio 155.0 mg/g High 0.0-30.0 [facility] Comment on above: Result Comment: 30-3 00 mg/g indicates an increased risk for diabetic nephropathy. Greater than 300 mg/g is consistent with clinical nephropathy. (Am. J. Kidney Disease 1995, 25:107)PERFORMED BY:[address] [place], [place] [phone] MEDICAL DIRECTORSADAF STANTON M.D. Performed By: #### U RMACRERAT, B12, LIPID, CMP ####[place] [id number] [facility] Microalbumin [Mass/volume] i n UrineOrdered By: Tondra Mapus on 09-05-2023 Albumin DL <= 20 mg/L (U) [Mass/Vol] 18.4 mg/dL High 0.0-1.8 [facility] Comment on above: Performed By: #### U RMACRERAT, B12, LIPID, CMP ####[address] No Panel InformationOrdered By: Tondra Mapus on 09-05-2023 Estimated GFR (CKD-EPI) > 60.0 mL/Min [facility] Creatinine Clearance (Chem N/A [facility] Potassium [Moles/volume] in Serum or PlasmaOrdered By: Barbera Leonardous on 09-05-2023 Potassium [Moles/Vol] 4.2 mmol/L Normal 3.5-5.1 [facility] Comment on above: Performed By: #### U RMACRERAT, B12, LIPID, CMP ####[place] [id number] [facility] Protein [Mass/volume] in Ser um or PlasmaOrdered By: Tondra Mapus on 09-05-2023 Protein [Mass/Vol] 7.0 g/dL Normal 6.4-8.9 [facility] Comment on above: Performed By: #### U RMACRERAT, B12, LIPID, CMP ####[place] [id number] [facility] Serum globulin measurement b y calculation (mass/volume)Ordered By: Tondra Mapus on 09-05-2023 Globulin (S) [Mass/Vol] 2.7 g/dL Normal [facility] Comment on above: Performed By: #### U RMACRERAT, B12, LIPID, CMP ####[facility] Serum or plasma albumin/glob ulin mass ratioOrdered By: Angelique Russell on 09-05-2023 Albumin/Globulin [Mass ratio] 1.6 {ratio} Normal [facility] Comment on above: Performed By: #### U RMACRERAT, B12, LIPID, CMP ####[place] [id number] Serum or plasma anion gap de terminationOrdered By: Angelique Russell on 09-05-2023 Anion gap [Moles/Vol] 13.6 mmol/L Normal 6.0-15.0 [facility] Comment on above: Performed By: #### U RMACRERAT, B12, LIPID, CMP ####[place] [id number] Serum or plasma high density lipoprotein (HDL) cholesterol measurementOrdered By: Angelique Russell on 09-05-2023 Cholesterol in HDL [Mass/Vol] 30 mg/dL Normal 23-92 [facility] Comment on above: HDL CHOL ATP-III CLA SSIFICATION Cardiovascular RiskHDL > or equal to 60 mg/dL LOWHDL < 40 mg/dL HIGH Result Comment: HDL CHOL ATP-III CLASSIFICATION Cardiovascular Risk HDL > or equal to 60 mg/dL LOW HDL < 40 mg/dL HIGH Performed By: #### U RMACRERAT, B12, LIPID, CMP ####[address] Serum or plasma total choles terol/high density lipoprotein (HDL) cholesterol mass ratOrdered By: Angelique Russell on 09-05-2023 Cholesterol.total/Monica sterol in HDL [Mass ratio] 4.8 {ratio} Normal <5.0 [facility] Comment on above: Performed By: #### U RMACRERAT, B12, LIPID, CMP ####[facility] [place] [address] [facility] Sodium [Moles/volume] in Ser um or PlasmaOrdered By: Tondra Yvonne on 09-05-2023 Sodium [Moles/Vol] 140 mmol/L Normal 136-145 [facility] Comment on above: Performed By: #### U RMACRERAT, B12, LIPID, CMP ####[facility] [place] [address] [facility] Triglyceride [Mass/volume] i n Serum or PlasmaOrdered By: Tondra Map on 09-05-2023 Triglyceride [Mass/Vol] 256 mg/dL High 0-149 [facility] Comment on above: TRIG ATP III CLASSIF ICATIONTRIG less than 150 mg/dL NormalTRIG 150-199 mg/dL Borderline highTRIG 200-500 mg/dL High TRIG greater than 500 mg/dL Very highStandard traceable to the Center for Disease Conrtrol and Prevention (CDC) test method. Urea nitrogen [Mass/volume] in Serum or PlasmaOrdered By: Tona Yvonne on 09-05-2023 Urea nitrogen [Mass/Vol] 12 mg/dL Normal 7-25 [facility] Comment on above: Performed By: #### U RMACRERAT, B12, LIPID, CMP ####[place] [id number] [place] [address] [facility] Urine microalbumin/creatinin e mass ratioOrdered By: Tondra Yvonne on 09-05-2023 Albumin/Creatinine DL <= 20 mg/L (U) [Mass ratio] 155.0 mg/g High 0.0-30.0 [facility] Comment on above: 30-300 mg/g indicate s an increased risk for diabetic nephropathy. Greater than 300 mg/g is consistent with clinical nephropathy. (Am. J. Kidney Disease 1995, 25:107) Vitamin B12 ser/plasOrdered By: Tondra Yvonne on 09-05-2023 Cobalamin (Vitamin B12) [Mass/Vol] 255 pg/mL Normal 180-914 [facility] Comment on above: Result Comment: PERF ORMED BY:[address]CHINY[address] [place], [place] [phone] MEDICAL DIRECTORSADAF STANTON M.D. Performed By: #### U RMACRERAT, B12, LIPID, CMP ####[facility] [id number] [place] [address] [facility] CT lung screeningon 07-25-19 CT lung screening Normal [facility] Laboratory - Hematology and Cell countson 06-12-2023 HbA1c (Bld) [Mass fraction] 7.2 % [facility] No Panel Informationon 06-12 Bedside Glucose 197 [facility] A1C HEMOGLOBINon 01-07-2023 HbA1c (Bld) [Mass fraction] 6.3 % [employer] Other Glucose - FINGER STICKon Glucose [Mass/Vol] 196 mg/dL [employer] Other HbA1c (Bld) [Mass fraction]o n 01-07-2023 A1C HEMOGLOBIN [employer] Other A1C HEMOGLOBINon 09-27-2022 HbA1c (Bld) [Mass fraction] 6.6 % [employer] Other Glucose - FINGER STICKon Glucose [Mass/Vol] 128 mg/dL [employer] Other HbA1c (Bld) [Mass fraction]o n 09-27-2022 A1C HEMOGLOBIN [employer] Other A1C HEMOGLOBINon 06-18-2022 HbA1c (Bld) [Mass fraction] 7.1 % [employer] Other Glucose - FINGER STICKon Glucose [Mass/Vol] 219 mg/dL [employer] Other HbA1c (Bld) [Mass fraction]o n 06-18-2022 A1C HEMOGLOBIN [employer] Other A1C HEMOGLOBINon 01-09-2022 HbA1c (Bld) [Mass fraction] 7.7 % [employer] Other Glucose - FINGER STICKon Glucose [Mass/Vol] 242 mg/dL [facility] [employer] Other HbA1c (Bld) [Mass fraction]o n 01-09-2022 A1C HEMOGLOBIN [facility] [employer] Other Consultation Noteon 12-26-19 Consultation Note [id number]: 127 Normal [facility] Insurance Correspondence Off iceon 12-20-2021 Insurance Correspondence Office [id number]: 127 Normal [facility] Urine culture routineOrdered By: Milo Watters on 12-19-2021 Bacteria identified Cx Nom (U) Zeny albicans [facility] Albumin [Mass/volume] in Ser um or PlasmaOrdered By: Milo Watters on 12-17-2021 Albumin [Mass/Vol] 3.4 g/dL 3.2-5.5 [facility] Automated erythrocytes count in urine sediment (number/area)Ordered By: Milo Watters on 12-17-2021 RBC Auto (Urine sed) [#/Area] 3-4 [HPF] 0-4 [facility] Automated leukocytes count i n urine sediment (number/area)Ordered By: Milo Watters on 12-17-2021 WBC Auto (Urine sed) [#/Area] 50-100 [HPF] 0-4 [facility] Automated urine hyaline cast s count (number/volume)Ordered By: Milo Watters on 12-17-2021 Hyaline casts Auto (U) [#/Vol] None seen [LPF] 0-1 [facility] Basophils Auto (Bld) [#/Vol] Ordered By: Milo Watters on 12-17-2021 Basophils (Bld) [#/Vol] 0.1 10*3/uL 0.0-0.2 [facility] Basophils/100 WBC Auto (Bld) Ordered By: Milo Watters on 12-17-2021 Basophils/100 WBC (Bld) 0.5 % . [facility] Bilirubin Test strip Ql (U)O rdered By: Milo Watters on 12-17-2021 Bilirubin Ql (U) Negative Negative [facility] Blood hemoglobin measurement (mass/volume)Ordered By: Milo Watters on 12-17-2021 Hemoglobin (Bld) [Mass/Vol] 16.1 g/dL 11.8-15.4 [facility] Blood leukocytes automated c ount (number/volume)Ordered By: Milo Watters on 12-17-2021 WBC (Bld) [#/Vol] 10.7 10*3/uL 4.5-11.0 [facility] Casts typing in urine sedime nt by light microscopyOrdered By: Milo Watters on 12-17-2021 Casts LM Nom (Urine sed) None seen [LPF] None Seen [facility] Color Auto (U)Ordered By: Jonh Watters on 12-17-2021 Color (U) Yellow Yellow [facility] Creatinine and Glomerular fi ltration rate.predicted panel (S/P/Bld)Ordered By: Milo Watters on 12-17-2021 Creatinine [Mass/Vol] 0.89 mg/dL 0.44-1.03 [facility] Eosinophils Auto (Bld) [#/Vo l]Ordered By: Milo Watters on 12-17-2021 Eosinophils (Bld) [#/Vol] 0.1 10*3/uL 0.0-0.45 [facility] Eosinophils/100 WBC Auto (Bl d)Ordered By: Milo Watters on 12-17-2021 Eosinophils/100 WBC (Bld) 1.0 % . [facility] Erythrocyte distribution wid th Auto (RBC) [Ratio]Ordered By: Milo Watters on 12-17-2021 Erythrocyte distribution width (RBC) [Ratio] 13.1 % 11.9-15.3 [facility] Estimated glomerular filtrat ion rate (GFR) non- AmericanOrdered By: Milo Watters on 12-17-2021 GFR/1.73 sq M.predicted among non-blacks MDRD (S/P/Bld) [Vol rate/Area] > 60 mL/Min [facility] Globulin Calc (S) [Mass/Vol] Ordered By: Milo Watters on 12-17-2021 Globulin (S) [Mass/Vol] 3.9 g/dL [facility] Hematocrit Auto (Bld) [Volum e fraction]Ordered By: Milo Watters on 12-17-2021 Hematocrit (Bld) [Volume fraction] 48.5 % 34.0-46.4 [facility] Ketones Auto test strip (U) [Mass/Vol]Ordered By: Milo Watters on 12-17-2021 Ketones (U) [Mass/Vol] Negative Negative [facility] Laboratory - Hematology and Cell countsOrdered By: Milo Watters on 12-17-2021 Nucleated RBC/100 WBC (Bld) [Ratio] 0.1 % 0-0.5 [facility] Lymphocytes Auto (Bld) [#/Vo l]Ordered By: Milo Watters on 12-17-2021 Lymphocytes (Bld) [#/Vol] 1.5 10*3/uL 1.00-4.8 [facility] Lymphocytes/100 WBC Auto (Bl d)Ordered By: Milo Watters on 12-17-2021 Lymphocytes/100 WBC (Bld) 14.2 % . [facility] MCH Auto (RBC) [Entitic mass ]Ordered By: Milo Watters on 12-17-2021 MCH (RBC) [Entitic mass] 31.4 pg 24.7-34.3 [facility] MCHC Auto (RBC) [Mass/Vol]Or dered By: Milo Watters on 12-17-2021 MCHC (RBC) [Mass/Vol] 33.2 g/dL 32.0-35.0 [facility] MCV Auto (RBC) [Entitic vol] Ordered By: Milo Watters on 12-17-2021 MCV (RBC) [Entitic vol] 94.6 fL 80-100 [facility] Monocytes Auto (Bld) [#/Vol] Ordered By: Milo Watters on 12-17-2021 Monocytes (Bld) [#/Vol] 0.8 10*3/uL 0.0-0.8 [facility] Monocytes/100 WBC Auto (Bld) Ordered By: Milo Watters on 12-17-2021 Monocytes/100 WBC (Bld) 7.5 % . [facility] Neutrophils Auto (Bld) [#/Vo l]Ordered By: Milo Watters on 12-17-2021 Neutrophils (Bld) [#/Vol] 8.2 10*3/uL 1.8-7.7 [facility] Neutrophils/100 WBC Auto (Bl d)Ordered By: Milo Watters on 12-17-2021 Neutrophils/100 WBC (Bld) 76.8 % . [facility] Nitrite Test strip Ql (U)Ord ered By: Milo Watters on 12-17-2021 Nitrite Ql (U) Negative Negative [facility] No Panel InformationOrdered By: Milo Watters on 12-17-2021 Estimated GFR () > 60 mL/Min [facility] Comment on above: GFR estimated refere nce range: According to KDOQI guidelines, <60 ml/min/1.73m2 is sufficient to diagnose a patient with chronic kidney disease. Pharmacy Creatinine Clearance (Chem 70.55 [facility] Platelet mean volume Auto (B ld) [Entitic vol]Ordered By: Milo Watters on 12-17-2021 Platelet mean volume (Bld) [Entitic vol] 8.7 fL 6.3-10.7 [facility] Platelets Auto (Bld) [#/Vol] Ordered By: Milo Watters on 12-17-2021 Platelets (Bld) [#/Vol] 239 10*3/uL 150-450 [facility] Protein Auto test strip (U) [Mass/Vol]Ordered By: Milo Watters on 12-17-2021 Protein (U) [Mass/Vol] Trace mg/dL Negative F [facility] Protein [Mass/volume] in Ser um or PlasmaOrdered By: Milo Watters on 12-17-2021 Protein [Mass/Vol] 7.3 g/dL 6.1-7.9 [facility] RBC Auto (Bld) [#/Vol]Ordere d By: Milo Watters on 12-17-2021 RBC (Bld) [#/Vol] 5.13 10*6/uL 3.60-5.00 [facility] Serum or plasma alanine tucker otransferase measurement without P-5'-P (enzymatic activiOrdered By: Milo Watters on 12-17-2021 ALT No additional P-5'-P [Catalytic activity/Vol] 38 U/L 10-60 [facility] Serum or plasma albumin/glob ulin mass ratioOrdered By: Milo Watters on 12-17-2021 Albumin/Globulin [Mass ratio] 0.9 {ratio} [facility] Serum or plasma alkaline yue sphatase measurement (enzymatic activity/volume)Ordered By: Milo Watters on 12-17-2021 ALP [Catalytic activity/Vol] 109 U/L 32-92 [facility] Serum or plasma aspartate am inotransferase measurement (enzymatic activity/volume)Ordered By: Milo Watters on 12-17-2021 AST [Catalytic activity/Vol] 43 U/L 10-42 [facility] Serum or plasma calcium steve urement (mass/volume)Ordered By: Milo Watters on 12-17-2021 Calcium [Mass/Vol] 10.0 mg/dL 8.2-10.2 [facility] Serum or plasma chloride coleman surement (moles/volume)Ordered By: Milo Watters on 12-17-2021 Chloride [Moles/Vol] 102 mmol/L 95-114 [facility] Serum or plasma glucose steve urement (mass/volume)Ordered By: Milo Watters on 12-17-2021 Glucose [Mass/Vol] 231 mg/dL 70-100 [facility] Comment on above: ADA recommended refe rence range Random Glucose Reference Range is dependent on time and content of last meal. Glucose of more than 200 mg/dL in a nonstressed, ambulatory subject supports the diagnosis of Diabetes Mellitus. Serum or plasma potassium me asurement (moles/volume)Ordered By: OSORIO WHITE on 12-17-2021 Potassium [Moles/Vol] 3.6 mmol/L 3.5-5.1 [facility] Serum or plasma sodium measu rement (moles/volume)Ordered By: Milo Watters on 12-17-2021 Sodium [Moles/Vol] 137 mmol/L 136-146 [facility] Serum or plasma total biliru bin measurement (mass/volume)Ordered By: Milo Watters on 12-17-2021 Bilirubin [Mass/Vol] 0.8 mg/dL 0.3-1.2 [facility] Serum or plasma total carbon dioxide measurement (moles/volume)Ordered By: Milo Watters on 12-17-2021 CO2 [Moles/Vol] 24.6 mmol/L 22.0-30.0 [facility] Serum or plasma urea nitroge n measurement (mass/volume)Ordered By: Miol Watters on 12-17-2021 Urea nitrogen [Mass/Vol] 8 mg/dL 9- [facility] Specific gravity Auto test s trip (U) [Rel density]Ordered By: Milo Watters on 12-17-2021 Specific gravity (U) [Rel density] 1.030 1.001-1.03 0 [facility] Squamous epithelial cells de tection in urine sediment by light microscopyOrdered By: Milo Watters on 12-17-2021 Epithelial cells.squamous LM Ql (Urine sed) None seen [HPF] 0-2 [facility] Urine bacteria detection by automated methodOrdered By: Milo Watters on 12-17-2021 Bacteria Auto Ql (U) Rare None Seen [facility] Urine clarity by refractomet ry automatedOrdered By: Milo Watters on 12-17-2021 Clarity Refractometry automated (U) Clear Clear [facility] Urine glucose measurement by automated test strip (mass/volume)Ordered By: Milo Watters on 12-17-2021 Glucose Auto test strip (U) [Mass/Vol] >=1000 mg/dL Normal [facility] Urine hemoglobin detection b y automated test stripOrdered By: Milo Watters on 12-17-2021 Hemoglobin Auto test strip Ql (U) 1+ Negative [facility] Urine leukocyte esterase det ection by automated test stripOrdered By: Milo Watters on 12-17-2021 Leukocyte esterase Auto test strip Ql (U) 3+ Negative [facility] Urobilinogen Auto test strip (U) [Mass/Vol]Ordered By: Milo Watters on 12-17-2021 Urobilinogen (U) [Mass/Vol] Normal mg/dL Normal [facility] Yeast detection in urine sed iment by light microscopyOrdered By: Milo Watters on 12-17-2021 Yeast LM Ql (Urine sed) 3+ [HPF] None Seen F [facility] pH Auto test strip (U)Ordere d By: Milo Watters on 12-17-2021 pH (U) 6.0 [pH] 5.0-9.0 [facility] Bacterial blood cultureOrder ed By: Arleen Stephen on 12-14-2021 Bacteria identified Cx Nom (Bld) NO GROWTH 5 DAYS [facility] Basophils Auto (Bld) [#/Vol] Ordered By: Walter Montgomery on 12-13-2021 Basophils (Bld) [#/Vol] 0.0 10*3/uL 0.0-0.2 [facility] Basophils/100 WBC Auto (Bld) Ordered By: Walter Montgomery on 12-13-2021 Basophils/100 WBC (Bld) 0.1 % . [facility] Blood hemoglobin measurement (mass/volume)Ordered By: Walter Montgomery on 12-13-2021 Hemoglobin (Bld) [Mass/Vol] 14.2 g/dL 11.8-15.4 [facility] Blood leukocytes automated c ount (number/volume)Ordered By: Walter Montgomery on 12-13-2021 WBC (Bld) [#/Vol] 9.4 10*3/uL 4.5-11.0 [facility] Consultation Noteon 12-14-19 Consultation Note [id number]: 127 Normal [facility] Creatinine and Glomerular fi ltration rate.predicted panel (S/P/Bld)Ordered By: Walter Montgomery on 12-13-2021 Creatinine [Mass/Vol] 0.75 mg/dL 0.44-1.03 [facility] Direct bilirubin measurement Ordered By: Walter Montgomery on 12-13-2021 Bilirubin.direct [Mass/Vol] 0.2 mg/dL 0.0-0.4 [facility] Eosinophils Auto (Bld) [#/Vo l]Ordered By: Walter Montgomery on 12-13-2021 Eosinophils (Bld) [#/Vol] 0.0 10*3/uL 0.0-0.45 [facility] Eosinophils/100 WBC Auto (Bl d)Ordered By: Walter Montgomery on 12-13-2021 Eosinophils/100 WBC (Bld) 0.0 % . [facility] Erythrocyte distribution wid th Auto (RBC) [Ratio]Ordered By: Walter Montgomery on 12-13-2021 Erythrocyte distribution width (RBC) [Ratio] 12.9 % 11.9-15.3 [facility] Estimated glomerular filtrat ion rate (GFR) non- AmericanOrdered By: Walter Montgomery on 12-13-2021 GFR/1.73 sq M.predicted among non-blacks MDRD (S/P/Bld) [Vol rate/Area] > 60 mL/Min [facility] Glucose Glucometer (BldC) [M ass/Vol]Ordered By: Wilmer Vance on 12-13-2021 Glucose [Mass/Vol] 230 mg/dL [facility] Comment on above: Random Glucose Refer ence Range is dependent on time and content of last meal. Glucose of more than 200 mg/dL in a nonstressed, ambulatory subject supports the diagnosis of Diabetes Mellitus. Hematocrit Auto (Bld) [Volum e fraction]Ordered By: Walter Montgomery on 12-13-2021 Hematocrit (Bld) [Volume fraction] 41.9 % 34.0-46.4 [facility] Laboratory - Hematology and Cell countsOrdered By: Walter Montgomery on 12-13-2021 Nucleated RBC/100 WBC (Bld) [Ratio] 0.0 % 0-0.5 [facility] Lymphocytes Auto (Bld) [#/Vo l]Ordered By: Walter Montgomery on 12-13-2021 Lymphocytes (Bld) [#/Vol] 0.7 10*3/uL 1.00-4.8 [facility] Lymphocytes/100 WBC Auto (Bl d)Ordered By: Walter Montgomery on 12-13-2021 Lymphocytes/100 WBC (Bld) 7.7 % . [facility] MCH Auto (RBC) [Entitic mass ]Ordered By: Walter Montgomery on 12-13-2021 MCH (RBC) [Entitic mass] 32.2 pg 24.7-34.3 [facility] MCHC Auto (RBC) [Mass/Vol]Or dered By: Walter Montgomery on 12-13-2021 MCHC (RBC) [Mass/Vol] 33.9 g/dL 32.0-35.0 [facility] MCV Auto (RBC) [Entitic vol] Ordered By: Walter Montgomery on 12-13-2021 MCV (RBC) [Entitic vol] 95.1 fL 80-100 [facility] Monocytes Auto (Bld) [#/Vol] Ordered By: Walter Montgomery on 12-13-2021 Monocytes (Bld) [#/Vol] 0.2 10*3/uL 0.0-0.8 [facility] Monocytes/100 WBC Auto (Bld) Ordered By: Walter Montgomery on 12-13-2021 Monocytes/100 WBC (Bld) 1.8 % . [facility] Neutrophils Auto (Bld) [#/Vo l]Ordered By: Walter Montgomery on 12-13-2021 Neutrophils (Bld) [#/Vol] 8.5 10*3/uL 1.8-7.7 [facility] Neutrophils/100 WBC Auto (Bl d)Ordered By: Walter Montgomery on 12-13-2021 Neutrophils/100 WBC (Bld) 90.4 % . [facility] No Panel InformationOrdered By: Walter Montgomery on 12-13-2021 Estimated GFR () > 60 mL/Min [facility] Comment on above: GFR estimated refere nce range: According to KDOQI guidelines, <60 ml/min/1.73m2 is sufficient to diagnose a patient with chronic kidney disease. Pharmacy Creatinine Clearance (Chem 84.79 [facility] Platelet mean volume Auto (B ld) [Entitic vol]Ordered By: Walter Montgomery on 12-13-2021 Platelet mean volume (Bld) [Entitic vol] 9.3 fL 6.3-10.7 [facility] Platelets Auto (Bld) [#/Vol] Ordered By: Walter Montgomery on 12-13-2021 Platelets (Bld) [#/Vol] 178 10*3/uL 150-450 [facility] RBC Auto (Bld) [#/Vol]Ordere d By: Walter Montgomery on 12-13-2021 RBC (Bld) [#/Vol] 4.41 10*6/uL 3.60-5.00 [facility] Serum or plasma chloride coleman surement (moles/volume)Ordered By: Walter Montgomery on 12-13-2021 Chloride [Moles/Vol] 105 mmol/L 95-114 [facility] Serum or plasma non-glucuron idated bilirubin measurement (mass/volume)Ordered By: Walter Montgomery on 12-13-2021 Bilirubin.indirect [Mass/Vol] 0.5 mg/dL [facility] Serum or plasma potassium me asurement (moles/volume)Ordered By: Walter Montgomery on 12-13-2021 Potassium [Moles/Vol] 4.4 mmol/L 3.5-5.1 [facility] Serum or plasma sodium measu rement (moles/volume)Ordered By: Walter Montgomery on 12-13-2021 Sodium [Moles/Vol] 137 mmol/L 136-146 [facility] Serum or plasma total biliru bin measurement (mass/volume)Ordered By: Walter Montgomery on 12-13-2021 Bilirubin [Mass/Vol] 0.7 mg/dL 0.3-1.2 [facility] Serum or plasma total carbon dioxide measurement (moles/volume)Ordered By: Walter Montgomery on 12-13-2021 CO2 [Moles/Vol] 24.6 mmol/L 22.0-30.0 [facility] Serum or plasma urea nitroge n measurement (mass/volume)Ordered By: Walter Montgomery on 12-13-2021 Urea nitrogen [Mass/Vol] 12 mg/dL 9-23 [facility] Activated partial thrombopla stin time (aPTT) in platelet poor plasma by coagulation aOrdered By: Walter Montgomery on 12-12-2021 aPTT Coag (PPP) [Time] 30.0 s 25.1-36.5 [facility] - CoagulationOrde red By: Walter Montgomery on 12-12-2021 PT Coag (PPP) [Time] 14.1 s 9.0-12.9 [facility] Platelet poor plasma interna tional normalized ratio (INR) by coagulation assay (relatOrdered By: Walter Montgomery on 12-12-2021 INR Coag (PPP) [Relative time] 1.3 {INR} [facility] Comment on above: INR Therapeutic Rang e [...] 12-12-2021 ALP [Catalytic activity/Vol] 92 U/L 32-92 [facility] Serum or plasma aspartate am inotransferase measurement (enzymatic activity/volume)Ordered By: Walter Montgomery on 12-12-2021 AST [Catalytic activity/Vol] 22 U/L 10-42 [facility] Albumin [Mass/volume] in Ser um or PlasmaOrdered By: Arleen Stephen on 12-11-2021 Albumin [Mass/Vol] 2.9 g/dL 3.2-5.5 [facility] Globulin Calc (S) [Mass/Vol] Ordered By: Arleen Stephen on 12-11-2021 Globulin (S) [Mass/Vol] 3.0 g/dL F [facility] No Panel InformationOrdered By: Arleen Stephen on 12-11-2021 Bedside Glucose Comment Glu2: cleaned meter [facility] Protein [Mass/volume] in Ser um or PlasmaOrdered By: Arleen Stephen on 12-11-2021 Protein [Mass/Vol] 5.9 g/dL 6.1-7.9 [facility] Serum or plasma alanine tucker otransferase measurement without P-5'-P (enzymatic activiOrdered By: Arleen Stephen on 12-11-2021 ALT No additional P-5'-P [Catalytic activity/Vol] 16 U/L 10-60 [facility] Serum or plasma albumin/glob ulin mass ratioOrdered By: Arleen Stephen on 12-11-2021 Albumin/Globulin [Mass ratio] 1.0 {ratio} [facility] Serum or plasma calcium steve urement (mass/volume)Ordered By: Arleen Stephen on 12-11-2021 Calcium [Mass/Vol] 9.2 mg/dL 8.2-10.2 [facility] Serum or plasma glucose steve urement (mass/volume)Ordered By: Arleen Stephen on 12-11-2021 Glucose [Mass/Vol] 204 mg/dL 70-100 [facility] Comment on above: ADA recommended refe rence range Random Glucose Reference Range is dependent on time and content of last meal. Glucose of more than 200 mg/dL in a nonstressed, ambulatory subject supports the diagnosis of Diabetes Mellitus. Urine culture routineOrdered By: Tray Randle on 12-11-2021 Bacteria identified Cx Nom (U) Escherichia coli [facility] Automated erythrocytes count in urine sediment (number/area)Ordered By: Tray Randle on 12-09-2021 RBC Auto (Urine sed) [#/Area] 5-9 [HPF] 0-4 [facility] Automated leukocytes count i n urine sediment (number/area)Ordered By: Tray Randle on 12-09-2021 WBC Auto (Urine sed) [#/Area] 50-100 [HPF] 0-4 [facility] Automated urine hyaline cast s count (number/volume)Ordered By: Tray Randle on 12-09-2021 Hyaline casts Auto (U) [#/Vol] None seen [LPF] 0-1 [facility] Bilirubin Test strip Ql (U)O rdered By: Tray Randle on 12-09-2021 Bilirubin Ql (U) Negative Negative [facility] COVID-19 Positive/NegativeOr dered By: Tray Randle on 12-09-2021 SARS-CoV-2 (COVID-19) N gene TEJINDER+probe Ql (Resp) Negative Negative [facility] Comment on above: Testing for SARS-CoV -2 by RT-PCR This test was developed and its performance characteristics determined by [employer] and validated at the [facility]. This test has not been FDA cleared [...] (COVID-19) Ag IA.rapid Ql (Resp) Negative Negative [facility] Comment on above: This is a duplicate Molly SARS Antigen (ANUP) result to be used for statistical tracking purpose only. Casts typing in urine sedime nt by light microscopyOrdered By: Tray Randle on 12-09-2021 Casts LM Nom (Urine sed) None seen [LPF] None Seen [facility] Color Auto (U)Ordered By: Carolina Randle on 12-09-2021 Color (U) Yellow Yellow [facility] Ketones Auto test strip (U) [Mass/Vol]Ordered By: Tray Randle on 12-09-2021 Ketones (U) [Mass/Vol] Negative Negative [facility] Nitrite Test strip Ql (U)Ord ered By: Tray Randle on 12-09-2021 Nitrite Ql (U) Positive Negative [facility] No Panel InformationOrdered By: Tray Randle on 12-09-2021 SARS Antigen (LFIA) [facility] Protein Auto test strip (U) [Mass/Vol]Ordered By: Tray Randle on 12-09-2021 Protein (U) [Mass/Vol] Negative Negative [facility] Specific gravity Auto test s trip (U) [Rel density]Ordered By: Tray Randle on 12-09-2021 Specific gravity (U) [Rel density] 1.030 1.001-1.03 0 [facility] Squamous epithelial cells de tection in urine sediment by light microscopyOrdered By: Tray Randle on 12-09-2021 Epithelial cells.squamous LM Ql (Urine sed) 10-19 [HPF] 0-2 [facility] Troponin I.cardiac [Mass/vol ume] in Serum or Plasma by High sensitivity methodOrdered By: Arleen Stephen on 12-09-2021 Troponin I.cardiac High sensitivity method [Mass/Vol] 5 pg/mL 0-15 [facility] Urine bacteria detection by automated methodOrdered By: Tray Randle on 12-09-2021 Bacteria Auto Ql (U) 4+ None Seen [facility] Urine clarity by refractomet ry automatedOrdered By: Tray Randle on 12-09-2021 Clarity Refractometry automated (U) Cloudy Clear [facility] Urine glucose measurement by automated test strip (mass/volume)Ordered By: Tray Randle on 12-09-2021 Glucose Auto test strip (U) [Mass/Vol] >=1000 mg/dL Normal [facility] Urine hemoglobin detection b y automated test stripOrdered By: Tray Randle on 12-09-2021 Hemoglobin Auto test strip Ql (U) Trace Negative [facility] Urine lactic acid measuremen tOrdered By: Arleen Stephen on 12-09-2021 Lactate (U) [Moles/Vol] 1.7 mmol/L 0.5-2.2 [facility] Urine leukocyte esterase det ection by automated test stripOrdered By: Tray Randle on 12-09-2021 Leukocyte esterase Auto test strip Ql (U) 2+ Negative [facility] Urobilinogen Auto test strip (U) [Mass/Vol]Ordered By: Tray Randle on 12-09-2021 Urobilinogen (U) [Mass/Vol] Normal mg/dL Normal [facility] pH Auto test strip (U)Ordere d By: Tray Randle on 12-09-2021 pH (U) 5.5 [pH] 5.0-9.0 [facility] A1C HEMOGLOBINon 10-12-2021 HbA1c (Bld) [Mass fraction] 7.5 % [employer] Other HbA1c (Bld) [Mass fraction]o n 10-12-2021 A1C HEMOGLOBIN [employer] Other A1C HEMOGLOBINon 07-10-2021 HbA1c (Bld) [Mass fraction] 6 % [employer] Other Glucose - FINGER STICKon Glucose [Mass/Vol] 150 mg/dL [employer] Other HbA1c (Bld) [Mass fraction]o n 07-10-2021 A1C HEMOGLOBIN [employer] Other A1C HEMOGLOBINon 03-27-2021 HbA1c (Bld) [Mass fraction] 6.9 % [employer] Other Glucose - FINGER STICKon Glucose [Mass/Vol] 244 mg/dL [employer] Other HbA1c (Bld) [Mass fraction]o n 03-27-2021 A1C HEMOGLOBIN [employer] Other PROGRESSon 02-12-2019 PROGRESS HNO ID: [id number] Author: Clyde Salamanca) Armand Service: ? Author Type: Nurse Practitioner Type: Progress Notes Filed: 02/12/2019 12:57 PM Note Text: Taye presents for post op follow up. She [...] - RTC to see Nov 1 at [facility], [place], to ensure complete healing, and further discuss plan of care re pathology results. - call office prn for issues/concerns [facility]N.CNP [facility] ([facility]ML) -------- PRITITAYE ([id number]) 1955 F Date Time Provider Department 02/11/19 2:30 PM CLYDE HALL (JAYSON) GYNML During your visit today, we recorded the following information about you: Temperature Pulse Blood pressure Weight 98.7 degrees 99/minute 124/67 93.3 kg Clyde Hall APRN.CNP 02/12/2019 12:57 PM Signed Taye presents for post op follow up. She [...] - RTC to see Nov 1 at [facility] [place], to ensure complete healing, and further discuss plan of care re pathology results. - call office prn for issues/concerns Clyde Hall, NITZA.CVOR NURSE Referring Provider: THEO JOAQUIN [[id number]] Allergies As of Date: 02/11/2019 Noted Allergy [...] Status:Closed by CLYDE HALL CNP on [facility]12[facility] (GYNML) -------- TAYE GAY ([id number]) 1955 F Date Time Provider Department 01/21/19 10:45 AM THEO JOAQUIN GYNDOMINIK During your visit today, we recorded the following information about you: Temperature Pulse Blood pressure Weight 98.6 degrees 94/minute 111/52 91.4 kg Theo Joaquin MD 01/22/2019 2:06 PM Signed Gynecologic Oncology [facility] Re: Taye Gay CCF#:[id number] 01/21/2019 Dear Nereida Castro: Taye presents for post op follow up. She [...] note were sent to: Nereida Castro MD ([facility]) [address] [place] [phone] CC: Jonas Yoder MD (PCP) Referring Provider: THEO JOAQUIN [[id number]] Allergies As of Date: 01/21/2019 Noted Allergy [...] Status:Closed by THEO JOAQUIN MD on 01/22/19 [facility] PROGRESSon 01-08-2019 PROGRESS HNO ID: [id number] Author: Theo Joaquin Service: ? Author Type: Physician Type: Progress Notes Filed: 01/22/2019 2:06 PM Note Text: Gynecologic Oncology [facility] Re: Taye Gay CCF#:[id number] 01/21/2019 Dear Nereida Castro: Taye presents for post op follow up. She [...] were sent to: Nereida Castro MD (DrC) [facility] [address] [id number] CC: Jonas Yoder MD (PCP) [facility] CNOVon 01-07-2019 CNOV Office Visit (GYNML) -------- PRITITAYE ([id number]) 1955 F Date Time Provider Department 01/07/19 8:30 AM THEO JOAQUIN GYNML During your visit today, we recorded the following information about you: Temperature Pulse Blood pressure Weight 98.4 degrees 124/minute 103/53 90.2 kg Theo Joaquin MD 01/10/2019 11:17 PM Signed Gynecologic Oncology [facility] Re: Taye Gay CCF#:[id number] 01/07/2019 Dear Nereida Castro: Taye presents for post op follow up. She [...] were sent to: Nereida Castro MD (DrC) [address] [place] [phone] CC: Jonas Yoder MD (PCP) Referring Provider: THEO JOAQUIN [[id number]] Allergies As of Date: 01/07/2019 Noted Allergy [...] Status:Closed by THEO JOAQUIN MD on 01/10/19 [facility] 01-06-2019 [facility] Telephone (GYNML) -------- TAYE GAY ([id number]) 1955 F Date Time Provider Department 01/06/19 [...] Appointment made with Dr. Joaquin 01/07 @ 9723 for wound check Patient verbalized understanding and [...] Encounter Status:Closed by SHANTEL REYNOSO on 01/06/19 [facility] PROGRESSon 01-06-2019 PROGRESS HNO ID: [id number] Author: Theo Joaquin Service: ? Author Type: Physician Type: Progress Notes Filed: 01/10/2019 11:17 PM Note Text: Gynecologic Oncology [facility] Re: Taye Hollyaton CCF#:[id number] 01/07/2019 Dear Nereida Castro: Taye presents for post op follow up. She [...] were sent to: Nereida Castro MD (DrC) [facility] [address] [address] CC: Jonas Yoder MD (PCP) [facility] ANES Yousuf 01-01-2019 ANES POST HNO ID: [id number] Author: Katharina Durham Service: Anesthesiology Author Type: [...] Remarks: SIGNATURE: Katharina Durham MD PATIENT NAME: Taye Gay DATE: January 01, 2019 TIME: 9:45 AM PAGER/CONTACT #: [facility] ANES PREOPon 01-01-2019 ANES PREOP HNO ID: [id number] Author: Katharina Durham Service: Anesthesiology Author Type: Anesthesiologist Type: Anesthesia PreOp Filed: 01/01/2019 7:37 AM Note Text: REGIONAL ANESTHESIOLOGY DAY OF SURGERY NOTE PATIENT NAME: Taye Gay : 1955 Procedure(s) (LRB): COLPOSCOPY OF [...] ASA Monitors Pain Management Plan: ROOT Protocol EPIC Chart Review ACTIVE PROBLEM LIST Hypertension Diabetes (Hcc) Hypercholesteremia Smoker PAST MEDICAL HISTORY Diagnosis Date - Diabetes (HCC) - Fibromyalgia - Hypercholesteremia - Hypertension - Smoker - Vulvar intraepithelial neoplasia (SONNY) grade 3 PAST SURGICAL HISTORY Procedure Laterality Date - CARPAL TUNNEL Right 2018 - ESOPHAGEAL DILATION (AG) - HYSTERECTOMY HX [...] for 7 days Inpatient medications reviewed in [facility]. I have interviewed and examined the patient. I have reviewed the medical record and/or the pre-anesthesia evaluation, pertinent labs, and test results. Significant changes in the patient's condition since the History and Physical, not otherwise documented in primary service progress notes: No This contains updated information obtained within 48 hours of Surgery/Procedure. SIGNATURE: Katharina Durham MD PATIENT NAME: Taye Gay DATE: January 01, 2019 TIME: 7:35 AM PAGER/CONTACT #: [facility] HISTORY PHYSICALon 9 HISTORY PHYSICAL HNO ID: [id number] Author: Petty Shahid (Fel) Service: Gynecology Oncology [...] 12/17/18. SIGNATURE: Petty Shahid MD PATIENT NAME: Taye Gay DATE: January 01, 2019 TIME: 7:16 AM PAGER: [facility] OPERATIVE NOon 01-01-2019 OPERATIVE NO HNO ID: [id number] Author: Theo Joaquin Service: Gynecology Oncology Author Type: Physician Type: Operative Report Filed: 01/17/2019 7:16 PM Note Text: OPERATIVE/PROCEDURE REPORT LOG ID: [id number] SURGERY/PROCEDURE DATE: 01/01/2019 INCISION/PROCEDURE START TIME: 8:11 AM INCISION CLOSE/PROCEDURE END TIME: 8:34 AM SURGEON(S)/PROCEDURALIST (S) AND MDM SR(S): Surgeon(s) and Role: * Theo Joaquin - [...] assistance SIGNATURE: Theo Joaquin MD PATIENT NAME: Taye Gay DATE: January 03, 2019 TIME: 2:24 PM PAGER/CONTACT #: [facility] PT EDon 01-01-2019 PT ED HNO ID: [id number] Author: Patty GalvinRn) BRENDA Bernal Service: Nursing Author Type: Registered Nurse Type: Patient Education Filed: 01/01/2019 9:59 AM Note Text: PATIENT EDUCATION TOPIC: PROCEDURE / SURGERY: Post-op Teaching: dr Joaquin's post op imnstructions PATIENT NAME: Taye Gay PATIENT LOCATION: [facility] OR POOL/[facility] OR [...] scheduled SUPPLEMENTAL MATERIAL PROVIDED TO PATIENT: flavia bath Electronically Signed By: Patty Bernal RN [facility] PT ED HNO ID: [id number] Author: Milly GalvinRn) BRENDA Murry Service: Nursing Author Type: Registered Nurse Type: Patient Education Filed: 01/01/2019 9:25 AM Note Text: PATIENT EDUCATION TOPIC: PROCEDURE / SURGERY: Post-op Teaching: Symptom Management PATIENT NAME: Taye Gay PATIENT LOCATION: [facility] OR POOL/[facility] OR [...] None Electronically Signed By: Milly Murry RN [facility] PT ED HNO ID: [id number] Author: Jelly (Rn) BRENDA Simmons Service: Nursing Author Type: Registered Nurse Type: Patient Education Filed: 01/01/2019 7:30 AM Note Text: PATIENT EDUCATION TOPIC: PROCEDURE / SURGERY: Pre-op Teaching: Protocols PATIENT NAME: Taye Gay PATIENT LOCATION: [facility] OR POOL/[facility] OR [...] None Electronically Signed By: Jelly Simmons RN [facility] SURGICAL PATHOLOGYon 019 SURGICAL PATHOLOGY Specimen originated from [facility] Specimen #: [id number] Submitting Physician: THEO JOAQUIN MD __ FINAL [...] o'clock. EL/clay 01/01/2019 Gross examination performed at [facility], [address] [place] [address] Date of Report: 01/05/2019 Date of Procedure: 01/01/2019 Date of Receipt: 01/01/2019 Submitted by: THEO JOAQUIN MD Location: [facility] Diagnostic interpretation performed at [facility], [address] [place], [place] [id number]. CLIA Number: [id number] [facility] NURSING PROGon 12-24-2018 NURSING PROG HNO ID: [id number] Author: Nataliya (Rn) BRENDA Bell Service: Nursing [...] Bell RN December 24, 2018 3:07 PM [facility] Confirm Blood Typeon 019 ABO/RH(D) Positive [facility] Comment on above: Performed By: #### C ONABO #### [place] [id number] [place] [phone] Type and SCR (30D)on 019 ABO/RH(D) Positive [facility] Comment on above: Performed By: #### T SCR30 #### [place] [phone] HOSPon 12-05-2018 HOSP Patient:Taye Gay MRN: Height:5' 7 (1.702 m) Weight:200 [...] 51.2 % 12/17/2018 46.0 36.0 Progress Notes ([employer] [facility]): Aracelis Charles, RN, RN 12/22/2018 11:38 AM Signed Pre-op teaching Procedure: vulvar surgery Physician: Location: [facility]: [phone] Date AND Time: 01/01/19 MEDICAL CLEARANCE: No [...] Naprosyn(naproxen) Agrylin NSAIDS Pepto-Bismol Aleve Ecotrin Persantine [place] Excedrin Plaquenil Anacin Heparin Plavix Ascriptin Herbals [...] - IV pain medication after surgery, IV MANAGER CARDIOVASCULAR if ordered by MD, discharged home with a prescription for PO pain medication, pain management after surgery, side effects of pain medication (including constipation, dizziness, drowsiness, and medication interactions). DVT PROPHYLAXIS - Early ambulation, SCDs, injectable anticoagulants (heparin, lovenox, etc) RESPIRATORY - Incentive spirometer, coughing/deep breathing exercises, ambulation. RETURN TO WORK - As directed by physician, please send any FMLA papers to physician's clerical secretary. SYMPTOMS TO NOTIFY MD - Fever, [...] if after hours patient instructed to call water treatment plant operator and ask for the doctor direct sales professional. Patient and family have phone number to call 24 hours/day. Patient Evaluation: Verbalizes understanding Patient and/or family express understanding of upcoming surgery and the operative process. Questions answered. Follow Up Plan: Follow up as needed Supplemental Material Given: Pre-operative teaching packet provided to the patient: INPATIENT/OUTPATIENT printed instructions; Post-operative instruction sheet, bowel prep instruction sheet For questions contact: office at [phone] Instructed By Aracelis Charles RN [facility] Serum or plasma calcidiol me asurement (mass/volume)on 07-10-2018 25-hydroxyvitamin D3 [Mass/Vol] 32.8 ng/mL 30-100 [facility] Comment on above: VITAMIN D STATUS 25( [place])VITAMIN D RANGE (ng/mL) Deficient <20 Insufficient 20 to <30Sufficient 30 to 100Reference: Sandra MF,Felisha NC, Leon SHERWOOD, et al. Evaluation,treatment, and prevention of vitamin D deficiency; an Endocrine Society clinical practice guideline. JCEM. 2010; 96(7):1911-30. Vitamin B12 ser/plason 07-10 Cobalamin (Vitamin B12) [Mass/Vol] 446 pg/mL 180-914 [facility] BASIC METABOLIC PANELon 04-29 Anion gap 11 mmol/L Normal 0-19 [facility] Comment on above: Performed By: #### B MP ####[address],[place] [address] BUN/Creatinine Ratio 16.0 RATIO Normal 8-21 [facility] Comment on above: Performed By: #### B MP ####[address],[place] [address] Calcium 9.1 mg/dL Normal 8.5-10.4 [facility] Comment on above: Performed By: #### B MP ####[address],[place] [address] Chloride 98 mmol/L Normal 97-107 [facility] Comment on above: Performed By: #### B MP ####[address],[place] [address] CO2 25 mmol/L Normal 24-31 [facility] Comment on above: Performed By: #### B MP ####[address],[place] [address] Creatinine 0.5 mg/dL Normal 0.4-1.6 [facility] Comment on above: Performed By: #### B MP ####[address],[place] [address] eGFR (MDRD) Normal [facility] Comment on above: Result Comment: 134G FR ml/min/1.73m2 Stage -----90 160-89 230-59 315-29 4<15 5For -Americans, multiply EGFR result by 1.210Calculation not validated for patients under 18 years of age.Performed at [facility],[address] ,[place] [address] Performed By: #### B MP ####[address],[place] [address] Glucose mass conc 331 mg/dL High 65-99 [facility] Comment on above: Performed By: #### B MP ####[address],[place] [address] Potassium molar conc 4.6 mmol/L Normal 3.4-5.1 [facility] Comment on above: Performed By: #### B MP ####[address],[place] [address] Sodium 134 mmol/L Normal 133-145 [facility] Comment on above: Performed By: #### B MP ####[address],[place] [address] Urea nitrogen 8 mg/dL Normal 8-25 [facility] Comment on above: Performed By: #### B MP ####[address] [place] [address] EKGon 05-16-2017 EKG EKGVentric ular Rate : 60 BPMAtrial Rate : 60 BPMP-R Interval : 166 msQRS Duration : 80 msQ-T Interval : 432 msQTC Calculation(Bezet) : 432 msCalculated P Heppner : 63 degreesCalculated R Heppner : 29 degreesCalculated T Heppner : 35 degreesDiagnosis:Normal sinus rhythmNormal ECGNo previous ECGs availableConfirmed by Walter Slaughter ([id number]) on 05/16/2017 3:45:18 PM Normal [facility] HEMOGLOBIN,HCTon 05-16-2017 Hematocrit (HCT) High 36-44 [facility] Comment on above: Result Comment: 49.3 Performed at [facility],[address] [place] [address] Performed By: #### H H ####[address],[place] [address] Hemoglobin mass conc (Bld) 16.9 g/dL High 12.0-15.0 [facility] Comment on above: Performed By: #### H H ####[address] ,[place] [address] Operative Reporton 8 Operative Report Normal [facility] POCT GLUCOSEon 05-16-2017 Glucose mass conc 268 mg/dL High 65-99 [facility] Comment on above: Performed By: #### P CGL ####[address] [place] [address] Glucose mass conc 292 mg/dL High 65-99 [facility] Comment on above: Performed By: #### P CGL ####[facility] [address] [place] [address] Glucose mass conc 358 mg/dL High 65-99 [facility] Comment on above: Performed By: #### P CGL ####[facility] [address] [place] [address] Glucose mass conc 243 mg/dL High 65-99 [facility] Comment on above: Performed By: #### P CGL ####[facility] [address] [place] [address] Vital Signs Date Time Vital Sign Value Performing Clinician Faci lity 05-07-2024 13:07-0500 Body height 170.18 cm Sandra Keita DO Work Phone: [facility] 05-07-2024 13:07-0500 Body mass index (BMI) [Ratio] 32.9 kg/m2 Sandra Keita DO Work Phone: [facility] 05-07-2024 13:07-0500 Body weight 95.3 kg Sandra Keita DO Work Phone: [facility] 05-07-2024 13:07-0500 Diastolic blood pressure 52 mm[Hg] Sandra Keita DO Work Phone: [facility] 05-07-2024 13:07-0500 Heart rate 64 /min Sandra Keita DO Work Phone: [facility] 05-07-2024 13:07-0500 Respiratory rate 18 /min Sandra Keita DO Work Phone: [facility] 05-07-2024 13:07-0500 SaO2% (BldA) [Mass fraction] 97 % Sandra Keita DO Work Phone: [facility] 05-07-2024 13:07-0500 Systolic blood pressure 82 mm[Hg] Sandra Keita DO Work Phone: [facility] 04-30-2024 08:25-0500 Body temperature 97.8 [degF] Sandra Keita DO Work Phone: [facility] 04-30-2024 08:25-0500 Diastolic blood pressure 83 mm[Hg] Sandra Keita DO Work Phone: [facility] 04-30-2024 08:25-0500 Heart rate 64 /min Sandra Keita DO Work Phone: [facility] 04-30-2024 08:25-0500 Respiratory rate 18 /min Sandra Keita DO Work Phone: [facility] 04-30-2024 08:25-0500 SaO2% (BldA) [Mass fraction] 96 % Sandra Keita DO Work Phone: [facility] 04-30-2024 08:25-0500 Systolic blood pressure 141 mm[Hg] Sandra Kieta DO Work Phone: [facility] 04-30-2024 05:12-0500 Body weight 96.2 kg Sandra Keita DO Work Phone: [facility] 04-28-2024 23:40-0500 Body height 170.18 cm Sandra Keita DO Work Phone: [facility] 04-28-2024 23:19-0500 Diastolic blood pressure 68 mm[Hg] Sandra Keita DO Work Phone: [facility] 04-28-2024 23:19-0500 Heart rate 72 /min Sandra Keita DO Work Phone: [facility] 04-28-2024 23:19-0500 Respiratory rate 18 /min Sandra Keita DO Work Phone: [facility] 04-28-2024 23:19-0500 SaO2% (BldA) [Mass fraction] 98 % Sandra Keita DO Work Phone: [facility] 04-28-2024 23:19-0500 Systolic blood pressure 135 mm[Hg] Sandra Keita DO Work Phone: [facility] 04-28-2024 19:39-0500 Body height 170.18 cm Sandra Keita DO Work Phone: [facility] 04-28-2024 19:39-0500 Body temperature 98.1 [degF] Sandra Keita DO Work Phone: [facility] 04-28-2024 19:39-0500 Body weight 95.4 kg Sandra Keita DO Work Phone: [facility] 04-28-2024 11:35-0500 Body height 170.18 cm Sandra Keita DO Work Phone: [facility] 04-28-2024 11:35-0500 Body mass index (BMI) [Ratio] 32.5 kg/m2 Sandra Keita DO Work Phone: [facility] 04-28-2024 11:35-0500 Body weight 94.34 kg Sandra Keita DO Work Phone: [facility] 04-28-2024 11:35-0500 Diastolic blood pressure 58 mm[Hg] Sandra Keita DO Work Phone: [facility] 04-28-2024 11:35-0500 Heart rate 71 /min Sandra Keita DO Work Phone: [facility] 04-28-2024 11:35-0500 Respiratory rate 18 /min Sandra Keita DO Work Phone: [facility] 04-28-2024 11:35-0500 SaO2% (BldA) [Mass fraction] 94 % Sandra Keita DO Work Phone: [facility] 04-28-2024 11:35-0500 Systolic blood pressure 94 mm[Hg] Sandra Keita DO Work Phone: [facility] 04-28-2024 10:15-0500 Body height 170.18 cm Sandra Keita DO Work Phone: [facility] 04-28-2024 10:15-0500 Body mass index (BMI) [Ratio] 32.7 kg/m2 Sandra Keita DO Work Phone: [facility] 04-28-2024 10:15-0500 Body temperature 97.9 [degF] Sandra Keita DO Work Phone: [facility] 04-28-2024 10:15-0500 Body weight 94.8 kg Sandra Keita DO Work Phone: [facility] 04-28-2024 10:15-0500 Diastolic blood pressure 64 mm[Hg] Sandra Keita DO Work Phone: [facility] 04-28-2024 10:15-0500 Heart rate 70 /min Sandra Keita DO Work Phone: [facility] 04-28-2024 10:15-0500 Respiratory rate 16 /min Sandra Keita DO Work Phone: [facility] 04-28-2024 10:15-0500 SaO2% (BldA) [Mass fraction] 96 % Sandra Keita DO Work Phone: [facility] 04-28-2024 10:15-0500 Systolic blood pressure 88 mm[Hg] Sandra Keita DO Work Phone: [facility] 04-27-2024 14:29-0500 Body height 170.18 cm Sandra Keita DO Work Phone: [facility] 04-27-2024 14:29-0500 Body temperature 98 [degF] Sandra Keita DO Work Phone: [facility] 04-27-2024 14:29-0500 Body weight 90.71 kg Sandra Keita DO Work Phone: [facility] 04-27-2024 14:29-0500 Diastolic blood pressure 61 mm[Hg] Sandra Keita DO Work Phone: [facility] 04-27-2024 14:29-0500 Heart rate 80 /min Sandra Keita DO Work Phone: [facility] 04-27-2024 14:29-0500 Respiratory rate 18 /min Sandra Keita DO Work Phone: [facility] 04-27-2024 14:29-0500 SaO2% (BldA) [Mass fraction] 93 % Sandra Keita DO Work Phone: [facility] 04-27-2024 14:29-0500 Systolic blood pressure 116 mm[Hg] Sandra Keita DO Work Phone: [facility] 04-14-2024 09:35-0500 Body height 170.18 cm Sandra Keita DO Work Phone: [facility] 04-14-2024 09:35-0500 Body mass index (BMI) [Ratio] 32.1 kg/m2 Sandra Keita DO Work Phone: [facility] 04-14-2024 09:35-0500 Body temperature 98 [degF] Sandra Keita DO Work Phone: [facility] 04-14-2024 09:35-0500 Body weight 92.98 kg Sandra Debbie DO Work Phone: [facility] 04-14-2024 09:35-0500 Diastolic blood pressure 80 mm[Hg] Sandra Keita DO Work Phone: [facility] 04-14-2024 09:35-0500 Heart rate 78 /min Sandra Keita DO Work Phone: [facility] 04-14-2024 09:35-0500 Respiratory rate 20 /min Sandra Keita DO Work Phone: [facility] 04-14-2024 09:35-0500 SaO2% (BldA) [Mass fraction] 98 % Sandra Keita DO Work Phone: [facility] 04-14-2024 09:35-0500 Systolic blood pressure 126 mm[Hg] Sandra Keita DO Work Phone: [facility] 04-07-2024 13:26-0500 Body height 170.2 cm Oz Kincaid MD Work Phone: [facility] 04-07-2024 13:26-0500 Body mass index (BMI) [Ratio] 31.32 kg/m2 Oz Kincaid MD Work Phone: [facility] 04-07-2024 13:26-0500 Body weight 90.72 kg Oz Kincaid MD Work Phone: [facility] 03-25-2024 13:42-0500 Body height 170.2 cm Thuan Wise MD Work Phone: [facility] 03-25-2024 13:42-0500 Body mass index (BMI) [Ratio] 32.58 kg/m2 Thuan Wise MD Work Phone: [facility] 03-25-2024 13:42-0500 Body weight 94.35 kg Thuan Wise MD Work Phone: [facility] 03-25-2024 13:42-0500 Diastolic blood pressure 64 mm[Hg] Thuan Wise MD Work Phone: [facility] 03-25-2024 13:42-0500 Heart rate 63 /min Thuan Wise MD Work Phone: [facility] 03-25-2024 13:42-0500 Systolic blood pressure 100 mm[Hg] Thuan Wise MD Work Phone: [facility] 02-25-2024 13:55-0400 Body height 170.2 cm Oz Kincaid MD Work Phone: [facility] 02-25-2024 13:55-0400 Body mass index (BMI) [Ratio] 31.32 kg/m2 Oz Kincaid MD Work Phone: [facility] 02-25-2024 13:55-0400 Body weight 90.72 kg Oz Kincaid MD Work Phone: [facility] 02-25-2024 13:55-0400 Diastolic blood pressure 84 mm[Hg] Oz Kincaid MD Work Phone: [facility] 02-25-2024 13:55-0400 Heart rate 74 /min Oz Kincaid MD Work Phone: [facility] 02-25-2024 13:55-0400 Systolic blood pressure 130 mm[Hg] Oz Kincaid MD Work Phone: [facility] 02-14-2024 13:23-0400 Body height 170.18 cm Sandra Keita DO Work Phone: [facility] 02-14-2024 13:23-0400 Body weight 90.71 kg Sandra Keita DO Work Phone: [facility] 02-03-2024 11:56-0400 Body height 170.18 cm DO Sandra Keita Work Phone: [facility] 02-03-2024 11:56-0400 Body mass index (BMI) [Ratio] 31.6 kg/m2 DO Sandra Keita Work Phone: [facility] 02-03-2024 11:56-0400 Body weight 91.62 kg DO Sandra Keita Work Phone: [facility] 02-03-2024 11:56-0400 Diastolic blood pressure 68 mm[Hg] DO Sandra Keita Work Phone: [facility] 02-03-2024 11:56-0400 Heart rate 63 /min DO Sandra Keita Work Phone: [facility] 02-03-2024 11:56-0400 Respiratory rate 18 /min DO Sandra Keita Work Phone: [facility] 02-03-2024 11:56-0400 SaO2% (BldA) [Mass fraction] 98 % DO Sandra Keita Work Phone: [facility] 02-03-2024 11:56-0400 Systolic blood pressure 100 mm[Hg] DO Sandra Keita Work Phone: [facility] 01-15-2024 15:38-0400 Body height 170.18 cm DO Sandra Keita Work Phone: [facility] 01-15-2024 15:38-0400 Body mass index (BMI) [Ratio] 31.3 kg/m2 DO Sandra Keita Work Phone: [facility] 01-15-2024 15:38-0400 Body weight 90.77 kg DO Sandra Keita Work Phone: [facility] 01-07-2024 13:18-0400 Body height 170.2 cm Oz Kincaid MD Work Phone: [facility] 01-07-2024 13:18-0400 Body mass index (BMI) [Ratio] 31.32 kg/m2 Oz Kincaid MD Work Phone: [facility] 01-07-2024 13:18-0400 Body weight 90.72 kg Oz Kincaid MD Work Phone: [facility] 01-07-2024 13:18-0400 Diastolic blood pressure 74 mm[Hg] Oz Kincaid MD Work Phone: [facility] 01-07-2024 13:18-0400 Heart rate 62 /min Oz Kincaid MD Work Phone: [facility] 01-07-2024 13:18-0400 Systolic blood pressure 107 mm[Hg] Oz Kincaid MD Work Phone: [facility] 12-16-2023 10:40-0400 Body height 170.2 cm Thuan Wise MD Work Phone: [facility] 12-16-2023 10:40-0400 Body mass index (BMI) [Ratio] 30.48 kg/m2 Thuan Wise MD Work Phone: [facility] 12-16-2023 10:40-0400 Body weight 88.27 kg Thuan Wise MD Work Phone: [facility] 12-16-2023 10:40-0400 Diastolic blood pressure 64 mm[Hg] Thuan Wise MD Work Phone: [facility] 12-16-2023 10:40-0400 Heart rate 73 /min Thuan Wise MD Work Phone: [facility] 12-16-2023 10:40-0400 Systolic blood pressure 102 mm[Hg] Thuan Wise MD Work Phone: [facility] 11-18-2023 13:14-0400 Body height 170.18 cm DO Sandra Keita Work Phone: [facility] 11-18-2023 13:14-0400 Body mass index (BMI) [Ratio] 28.6 kg/m2 DO Sandra Keita Work Phone: [facility] 11-18-2023 13:14-0400 Body weight 83 kg DO Sandra Keita Work Phone: [facility] 11-18-2023 13:14-0400 Diastolic blood pressure 62 mm[Hg] DO Sandra Keita Work Phone: [facility] 11-18-2023 13:14-0400 Heart rate 54 /min DO Sandra Keita Work Phone: [facility] 11-18-2023 13:14-0400 Respiratory rate 18 /min DO Sandra Keita Work Phone: [facility] 11-18-2023 13:14-0400 SaO2% (BldA) [Mass fraction] 97 % DO Sandra Keita Work Phone: [facility] 11-18-2023 13:14-0400 Systolic blood pressure 96 mm[Hg] DO Sandra Keita Work Phone: [facility] 11-14-2023 15:07-0400 Body height 170.18 cm DO Sandra Keita Work Phone: [facility] 11-14-2023 15:07-0400 Body mass index (BMI) [Ratio] 28.5 kg/m2 DO Sandra Keita Work Phone: [facility] 11-14-2023 15:07-0400 Body weight 82.8 kg DO Sandra Keita Work Phone: [facility] 11-14-2023 15:07-0400 Diastolic blood pressure 72 mm[Hg] DO Sandra Keita Work Phone: [facility] 11-14-2023 15:07-0400 Heart rate 67 /min DO Sandra Keita Work Phone: [facility] 11-14-2023 15:07-0400 Respiratory rate 18 /min DO Sandra Keita Work Phone: [facility] 11-14-2023 15:07-0400 SaO2% (BldA) [Mass fraction] 97 % DO Sandra Keita Work Phone: [facility] 11-14-2023 15:07-0400 Systolic blood pressure 110 mm[Hg] DO Sandra Keita Work Phone: [facility] 11-13-2023 13:54-0400 Body height 170.2 cm Jonas Ch MD Work Phone: [facility] 11-13-2023 13:54-0400 Body mass index (BMI) [Ratio] 28.19 kg/m2 Jonas Ch MD Work Phone: [facility] 11-13-2023 13:54-0400 Body weight 81.65 kg Jonas Ch MD Work Phone: [facility] 11-13-2023 13:54-0400 Diastolic blood pressure 70 mm[Hg] Jonas Ch MD Work Phone: [facility] 11-13-2023 13:54-0400 Heart rate 87 /min Jonas Ch MD Work Phone: [facility] 11-13-2023 13:54-0400 Systolic blood pressure 108 mm[Hg] Jonas Ch MD Work Phone: [facility] 11-12-2023 16:12-0400 Diastolic blood pressure 83 mm[Hg] DO Sandra Keita Work Phone: [facility] 11-12-2023 16:12-0400 Heart rate 61 /min DO Sandra Keita Work Phone: [facility] 11-12-2023 16:12-0400 Respiratory rate 16 /min DO Sandra Keita Work Phone: [facility] 11-12-2023 16:12-0400 SaO2% (BldA) [Mass fraction] 96 % DO Sandra Keita Work Phone: [facility] 11-12-2023 16:12-0400 Systolic blood pressure 149 mm[Hg] DO Sandra Keita Work Phone: [facility] 11-12-2023 12:16-0400 Body temperature 97.5 [degF] DO Sandra Keita Work Phone: [facility] 11-12-2023 06:00-0400 Body weight 83.5 kg DO Sandra Keita Work Phone: [facility] 11-10-2023 08:23-0400 Body height 170.18 cm DO Sandra Keita Work Phone: [facility] [facility] 11-10-2023 05:05-0400 Diastolic blood pressure 67 mm[Hg] DO Sandra Keita Work Phone: [facility] 11-10-2023 05:05-0400 Heart rate 62 /min DO Sandra Debbie Work Phone: [facility] 11-10-2023 05:05-0400 Respiratory rate 18 /min DO Sandra Debbie Work Phone: [facility] 11-10-2023 05:05-0400 SaO2% (BldA) [Mass fraction] 100 % DO Sandra Debbie Work Phone: [facility] 11-10-2023 05:05-0400 Systolic blood pressure 144 mm[Hg] DO Sandra Debbie Work Phone: [facility] 11-10-2023 03:44-0400 Body temperature 98.1 [degF] DO Sandrarebecca Keita Work Phone: [facility] 11-09-2023 22:16-0400 Body height 170.18 cm DO Sandrarebecca Keita Work Phone: [facility] 11-09-2023 22:16-0400 Body weight 81.64 kg DO Sandrarebecca Keita Work Phone: [facility] 11-05-2023 12:36-0400 SaO2% (BldA) [Mass fraction] 100 % DO Sandrarebecca Keita Work Phone: [facility] 10-07-2023 09:48-0400 Body height 170.2 cm Jonas Ch MD Work Phone: [facility] 10-07-2023 09:48-0400 Body mass index (BMI) [Ratio] 28.19 kg/m2 Jonas Ch MD Work Phone: [facility] 10-07-2023 09:48-0400 Body weight 81.65 kg Jonas Ch MD Work Phone: [facility] 10-07-2023 09:48-0400 Diastolic blood pressure 90 mm[Hg] Jonas Ch MD Work Phone: [facility] 10-07-2023 09:48-0400 Heart rate 92 /min Jonas Ch MD Work Phone: [facility] 10-07-2023 09:48-0400 Systolic blood pressure 114 mm[Hg] Jonas Ch MD Work Phone: [facility] 09-17-2023 13:02-0400 Body height 167.64 cm DO Sandra Keita Work Phone: [facility] 09-17-2023 13:02-0400 Body mass index (BMI) [Ratio] 29 kg/m2 DO Sandra Keita Work Phone: [facility] 09-17-2023 13:02-0400 Body weight 81.67 kg DO Sandra Debbie Work Phone: [facility] 09-17-2023 13:02-0400 Diastolic blood pressure 64 mm[Hg] DO Sandra Keita Work Phone: [facility] 09-17-2023 13:02-0400 Heart rate 117 /min DO Sandra Keita Work Phone: [facility] 09-17-2023 13:02-0400 Respiratory rate 18 /min DO Sandra Debbie Work Phone: [facility] 09-17-2023 13:02-0400 SaO2% (BldA) [Mass fraction] 99 % DO Sandra Keita Work Phone: [facility] 09-17-2023 13:02-0400 Systolic blood pressure 92 mm[Hg] DO Sandra Keita Work Phone: [facility] 09-14-2023 16:11-0400 Body temperature 97.7 [degF] DO Sandra Keita Work Phone: [facility] 09-14-2023 16:11-0400 Diastolic blood pressure 70 mm[Hg] DO Sandra Keita Work Phone: [facility] 09-14-2023 16:11-0400 Heart rate 74 /min DO Sandra Keita Work Phone: [facility] 09-14-2023 16:11-0400 Respiratory rate 17 /min DO Sandra Keita Work Phone: [facility] 09-14-2023 16:11-0400 SaO2% (BldA) [Mass fraction] 95 % DO Sandra Keita Work Phone: [facility] 09-14-2023 16:11-0400 Systolic blood pressure 115 mm[Hg] DO Sandra Keita Work Phone: [facility] 09-14-2023 06:00-0400 Body weight 83.2 kg DO Sandra Keita Work Phone: [facility] 09-13-2023 12:41-0400 Body height 170.18 cm DO Sandra Keita Work Phone: [facility] 09-12-2023 13:58-0400 Body height 167.64 cm DO Sandra Keita Work Phone: [facility] 09-12-2023 13:58-0400 Body mass index (BMI) [Ratio] 29 kg/m2 DO Sandra Keita Work Phone: [facility] 09-12-2023 13:58-0400 Body weight 81.64 kg DO Sandra Keita Work Phone: [facility] 09-12-2023 13:58-0400 Diastolic blood pressure 81 mm[Hg] DO Sandra Keita Work Phone: [facility] 09-12-2023 13:58-0400 Heart rate 135 /min DO Sandra Keita Work Phone: [facility] 09-12-2023 13:58-0400 Respiratory rate 18 /min DO Sandra Keita Work Phone: [facility] 09-12-2023 13:58-0400 SaO2% (BldA) [Mass fraction] 97 % DO Sandra Keita Work Phone: [facility] 09-12-2023 13:58-0400 Systolic blood pressure 112 mm[Hg] DO Sandra Keita Work Phone: [facility] 07-17-2023 11:43-0400 Body height 167.64 cm [facility] 07-17-2023 11:43-0400 Body mass index (BMI) [Ratio] 28.8 kg/m2 [facility] 07-17-2023 11:43-0400 Body temperature 97.8 [degF] [facility] 07-17-2023 11:43-0400 Body weight 81.19 kg [facility] 07-17-2023 11:43-0400 Diastolic blood pressure 64 mm[Hg] [facility] 07-17-2023 11:43-0400 Heart rate 78 /min [facility] 07-17-2023 11:43-0400 Respiratory rate 16 /min [facility] 07-17-2023 11:43-0400 SaO2% (BldA) [Mass fraction] 98 % [facility] 07-17-2023 11:43-0400 Systolic blood pressure 112 mm[Hg] [facility] 06-19-2023 15:53-0500 Body height 167.64 cm [facility] 06-19-2023 15:53-0500 Body mass index (BMI) [Ratio] 28.9 kg/m2 [facility] 06-19-2023 15:53-0500 Body weight 81.33 kg [facility] 06-19-2023 15:53-0500 Diastolic blood pressure 68 mm[Hg] [facility] 06-19-2023 15:53-0500 Heart rate 95 /min [facility] 06-19-2023 15:53-0500 Respiratory rate 18 /min [facility] 06-19-2023 15:53-0500 SaO2% (BldA) [Mass fraction] 97 % [facility] 06-19-2023 15:53-0500 Systolic blood pressure 92 mm[Hg] [facility] 06-12-2023 15:38-0500 Body height 167.64 cm [facility] 06-12-2023 15:38-0500 Body mass index (BMI) [Ratio] 28.5 kg/m2 [facility] 06-12-2023 15:38-0500 Body weight 80.28 kg [facility] 06-12-2023 15:38-0500 Diastolic blood pressure 72 mm[Hg] [facility] 06-12-2023 15:38-0500 Heart rate 95 /min [facility] 06-12-2023 15:38-0500 Respiratory rate 18 /min [facility] 06-12-2023 15:38-0500 SaO2% (BldA) [Mass fraction] 99 % [facility] 06-12-2023 15:38-0500 Systolic blood pressure 111 mm[Hg] [facility] 03-04-2023 15:00-0500 Body height 167.64 cm Sandra Keita Other [employer] [facility] [employer] Other 03-04-2023 15:00-0500 Body mass index (BMI) [Ratio] 29.97 kg/m2 Sandra Keita Other [employer] Other 03-04-2023 15:00-0500 Body weight 84.23 kg Sandra Keita Other [employer] Other 03-04-2023 15:00-0500 Diastolic blood pressure 68 mm[Hg] Sandra Keita Other [employer] Other 03-04-2023 15:00-0500 Respiratory rate 18 /min Sandra Keita Other [employer] Other 03-04-2023 15:00-0500 SaO2% (BldA) [Mass fraction] 96 % Sandra Keita Other [employer] Other 03-04-2023 15:00-0500 Systolic blood pressure 98 mm[Hg] Sandra Keita Other [employer] Other 01-07-2023 14:00-0400 Body height 167.64 cm Tondra Mapus Other [employer] Other 01-07-2023 14:00-0400 Body mass index (BMI) [Ratio] 30.03 kg/m2 Tondra Mapus Other [employer] Other 01-07-2023 14:00-0400 Body weight 84.41 kg Tondra Mapus Other [employer] Other 01-07-2023 14:00-0400 Diastolic blood pressure 68 mm[Hg] Tondra Mapus Other [employer] Other 01-07-2023 14:00-0400 Respiratory rate 18 /min Tondra Mapus Other [employer] Other 01-07-2023 14:00-0400 SaO2% (BldA) [Mass fraction] 98 % Tondra Mapus Other [employer] Other 01-07-2023 14:00-0400 Systolic blood pressure 102 mm[Hg] Tondra Mapus Other [employer] Other 01-02-2023 11:00-0400 Body height 167.64 cm Brayden Noble Other [employer] Other 01-02-2023 11:00-0400 Body mass index (BMI) [Ratio] 29.7 kg/m2 Brayden Noble Other [employer] Other 01-02-2023 11:00-0400 Body weight 83.46 kg Brayden Noble Other [employer] Other 01-02-2023 11:00-0400 Diastolic blood pressure 78 mm[Hg] Brayden Noble Other [employer] Other 01-02-2023 11:00-0400 Systolic blood pressure 120 mm[Hg] Brayden Noble Other [employer] Other 11-28-2022 15:00-0400 Body height 167.64 cm Sandra Keita Other [employer] Other 11-28-2022 15:00-0400 Body mass index (BMI) [Ratio] 29.58 kg/m2 Sandra Keita Other [employer] Other 11-28-2022 15:00-0400 Body weight 83.14 kg Sandra Keita Other [employer] Other 11-28-2022 15:00-0400 Diastolic blood pressure 72 mm[Hg] Sandra Keita Other [employer] Other 11-28-2022 15:00-0400 Respiratory rate 20 /min Sandra Keita Other [employer] Other 11-28-2022 15:00-0400 SaO2% (BldA) [Mass fraction] 99 % Sandrarebecca Keita Other [employer] Other 11-28-2022 15:00-0400 Systolic blood pressure 115 mm[Hg] Sandra Keita Other [employer] Other 09-27-2022 14:15-0400 Body height 167.64 cm Tondra Mapus Other [employer] Other 09-27-2022 14:15-0400 Body mass index (BMI) [Ratio] 29.53 kg/m2 Tondra Mapus Other [employer] Other 09-27-2022 14:15-0400 Body weight 83.01 kg Tondra Mapus Other [employer] Other 09-27-2022 14:15-0400 Diastolic blood pressure 66 mm[Hg] Tondra Mapus Other [employer] Other 09-27-2022 14:15-0400 Respiratory rate 18 /min Tondra Mapus Other [employer] Other 09-27-2022 14:15-0400 SaO2% (BldA) [Mass fraction] 97 % Tondra Mapus Other [employer] Other 09-27-2022 14:15-0400 Systolic blood pressure 100 mm[Hg] Tondra Mapus Other [employer] Other 08-09-2022 16:15-0400 Body height 167.64 cm Sandra Keita Other [employer] Other 08-09-2022 16:15-0400 Body mass index (BMI) [Ratio] 29.86 kg/m2 Sandrarebecca Keita Other [employer] Other 08-09-2022 16:15-0400 Body weight 83.92 kg Sandra Debbie Other [employer] Other 08-09-2022 16:15-0400 Diastolic blood pressure 74 mm[Hg] Sandra Keita Other [employer] Other 08-09-2022 16:15-0400 Respiratory rate 18 /min Sandrarebecca Keita Other [employer] Other 08-09-2022 16:15-0400 SaO2% (BldA) [Mass fraction] 97 % Sandrarebecca Keita Other [employer] Other 08-09-2022 16:15-0400 Systolic blood pressure 118 mm[Hg] Sandra Debbie Other [employer] Other 06-18-2022 15:30-0500 Body height 167.64 cm Tondra Mapus Other [employer] Other 06-18-2022 15:30-0500 Body mass index (BMI) [Ratio] 35.34 kg/m2 Tondra Mapus Other [employer] Other 06-18-2022 15:30-0500 Body weight 99.34 kg Tondra Mapus Other [employer] Other 06-18-2022 15:30-0500 Diastolic blood pressure 72 mm[Hg] Tondra Mapus Other [employer] Other 06-18-2022 15:30-0500 Respiratory rate 18 /min Tondra Mapus Other [employer] Other 06-18-2022 15:30-0500 SaO2% (BldA) [Mass fraction] 97 % Tondra Mapus Other [employer] Other 06-18-2022 15:30-0500 Systolic blood pressure 108 mm[Hg] Tondra Mapus Other [employer] Other 01-09-2022 14:00-0400 Body height 167.64 cm Tondra Mapus Other [employer] Other 01-09-2022 14:00-0400 Body mass index (BMI) [Ratio] 28.73 kg/m2 Tondra Mapus Other [employer] Other 01-09-2022 14:00-0400 Body weight 80.74 kg Tondra Mapus Other [employer] Other 01-09-2022 14:00-0400 Diastolic blood pressure 79 mm[Hg] Tondra Mapus Other [employer] Other 01-09-2022 14:00-0400 Respiratory rate 16 /min Tondra Mapus Other [employer] Other 01-09-2022 14:00-0400 SaO2% (BldA) [Mass fraction] 97 % Tondra Mapus Other [facility] [employer] Other 01-09-2022 14:00-0400 Systolic blood pressure 127 mm[Hg] Angelique Russell Other [employer] Other 12-17-2021 08:23-0400 Diastolic blood pressure 63 mm[Hg] DO Tray Randle [facility] 12-17-2021 08:23-0400 Heart rate 82 /min DO Tray Randle [facility] 12-17-2021 08:23-0400 Respiratory rate 18 /min DO Tray Randle [facility] 12-17-2021 08:23-0400 SaO2% (BldA) [Mass fraction] 98 % DO Trayumu Randle [facility] 12-17-2021 08:23-0400 Systolic blood pressure 135 mm[Hg] DO Tray Randle [facility] 12-17-2021 05:29-0400 Body height 170.18 cm DO Tray Randle [facility] 12-17-2021 05:29-0400 Body temperature 97.4 [degF] DO Tray Randle [facility] 12-17-2021 05:29-0400 Body weight 82.55 kg DO Tray Randle [facility] 12-14-2021 06:58-0400 Body height 170.18 cm DO Tray Randle [facility] 12-14-2021 06:58-0400 Body mass index (BMI) [Ratio] 29.2 kg/m2 DO Trayumu Randle [facility] 12-14-2021 06:58-0400 Body weight 84.8 kg DO Tray Randle [facility] 12-13-2021 11:06-0400 Body temperature 97.7 [degF] DO Tray Randle [facility] 12-13-2021 11:06-0400 Diastolic blood pressure 67 mm[Hg] DO Tray Randle [facility] 12-13-2021 11:06-0400 Heart rate 88 /min DO Tray Randle [facility] 12-13-2021 11:06-0400 Respiratory rate 16 /min DO Tray Randle [facility] 12-13-2021 11:06-0400 SaO2% (BldA) [Mass fraction] 93 % [facility] 12-13-2021 11:06-0400 Systolic blood pressure 119 mm[Hg[facility] 12-13-2021 08:00-0400 Inhaled oxygen flow rate 3 L/min DO [facility] 10-12-2021 11:00-0400 Body height 167.64 cm Crispin Looney Other [employer] Other 10-12-2021 11:00-0400 Body mass index (BMI) [Ratio] 29.81 kg/m2 Crispin Looney Other [employer] Other 10-12-2021 11:00-0400 Body weight 83.78 kg Crispin Looney Other [employer] Other 10-12-2021 11:00-0400 Diastolic blood pressure 68 mm[Hg] Crispin Looney Other [employer] Other 10-12-2021 11:00-0400 Respiratory rate 18 /min Crispin Looney Other [employer] Other 10-12-2021 11:00-0400 SaO2% (BldA) [Mass fraction] 97 % Crispin Looney Other [employer] Other 10-12-2021 11:00-0400 Systolic blood pressure 97 mm[Hg] Crispin Looney Other [employer] Other 07-10-2021 14:30-0400 Body height 167.64 cm Tondra Mapus Other [employer] Other 07-10-2021 14:30-0400 Body mass index (BMI) [Ratio] 30.34 kg/m2 Tondra Mapus Other [employer] Other 07-10-2021 14:30-0400 Body weight 85.28 kg Tondra Mapus Other [employer] Other 07-10-2021 14:30-0400 Diastolic blood pressure 60 mm[Hg] Tondra Mapus Other [employer] Other 07-10-2021 14:30-0400 Respiratory rate 16 /min Tondra Mapus Other [employer] Other 07-10-2021 14:30-0400 SaO2% (BldA) [Mass fraction] 97 % Tondra Mapus Other [employer] Other 07-10-2021 14:30-0400 Systolic blood pressure 89 mm[Hg] Tondra Mapus Other [employer] Other 07-03-2021 16:00-0500 Body height 167.64 cm Ruben Jovani Other [employer] Other 07-03-2021 16:00-0500 Body mass index (BMI) [Ratio] 30.5 kg/m2 Kamal Jovani Other [employer] Other 07-03-2021 16:00-0500 Body temperature 95.5 [degF] Ruben Hahn Other [employer] Other 07-03-2021 16:00-0500 Body weight 85.73 kg Ruben Hahn Other [employer] Other 07-03-2021 16:00-0500 Diastolic blood pressure 68 mm[Hg] Ruben Avendañoban Other [employer] Other 07-03-2021 16:00-0500 SaO2% (BldA) [Mass fraction] 99 % Ruben Hahn Other [employer] Other 07-03-2021 16:00-0500 Systolic blood pressure 94 mm[Hg] Ruben Hahn Other [employer] Other 05-08-2021 14:15-0500 Body height 167.64 cm Crispin Looney Other [employer] Other 05-08-2021 14:15-0500 Body mass index (BMI) [Ratio] 30.87 kg/m2 Crispin Looney Other [employer] Other 05-08-2021 14:15-0500 Body weight 86.77 kg Crispin Looney Other [employer] Other 05-08-2021 14:15-0500 Diastolic blood pressure 58 mm[Hg] Crispin Leeahan Other [employer] Other 05-08-2021 14:15-0500 Respiratory rate 20 /min Crispin Leeahan Other [employer] Other 05-08-2021 14:15-0500 SaO2% (BldA) [Mass fraction] 98 % Crispin Looney Other [employer] Other 05-08-2021 14:15-0500 Systolic blood pressure 102 mm[Hg] Crispin Looney Other [employer] Other 04-03-2021 15:00-0500 Body height 167.64 cm Tray Nava Other [employer] Other 04-03-2021 15:00-0500 Body mass index (BMI) [Ratio] 30.99 kg/m2 Tray Nava Other [employer] Other 04-03-2021 15:00-0500 Body temperature 98.3 [degF] Tray Nava Other [employer] Other 04-03-2021 15:00-0500 Body weight 87.09 kg Tray Nava Other [employer] Other 04-03-2021 15:00-0500 Diastolic blood pressure 68 mm[Hg] Tray Nava Other [employer] Other 04-03-2021 15:00-0500 SaO2% (BldA) [Mass fraction] 93 % Tray Nava Other [employer] Other 04-03-2021 15:00-0500 Systolic blood pressure 110 mm[Hg] Tray Nava Other [employer] Other 03-27-2021 15:00-0500 Body height 167.64 cm Angelique Russell Other [employer] Other 03-27-2021 15:00-0500 Body mass index (BMI) [Ratio] 30.99 kg/m2 Tondra Mapus Other [employer] Other 03-27-2021 15:00-0500 Body weight 87.09 kg Tondra Mapus Other [employer] Other 03-27-2021 15:00-0500 Diastolic blood pressure 75 mm[Hg] Tondra Mapus Other [employer] Other 03-27-2021 15:00-0500 Respiratory rate 20 /min Tondra Mapus Other [employer] Other 03-27-2021 15:00-0500 SaO2% (BldA) [Mass fraction] 97 % Tondra Mapus Other [employer] Other 03-27-2021 15:00-0500 Systolic blood pressure 124 mm[Hg] Tondra Mapus Other [employer] Other 02-27-2021 16:00-0400 Body height 167.64 cm Tray Nava Other [employer] Other 02-27-2021 16:00-0400 Body mass index (BMI) [Ratio] 30.66 kg/m2 Tray Nava Other [employer] Other 02-27-2021 16:00-0400 Body weight 86.18 kg Tray Nava Other [employer] Other 02-27-2021 16:00-0400 Diastolic blood pressure 76 mm[Hg] Tray Nava Other [employer] Other 02-27-2021 16:00-0400 Systolic blood pressure 123 mm[Hg] Tray Nava Other [facility] [employer] Other 08-27-2017 12:01-0400 Body height 170.18 cm DO Jonas Yoder Work Phone: [facility] Encounters Encounter Date Encounter Type Care Provider Facility Start: 05-25-2024 End: 05-25-2024 Patient encounter procedure Sandra Keita DO Work Phone: [facility] [place] Work Phone: Start: 05-25-2024 End: 05-25-2024 ambulatory Sandra A Keita DO Work Phone: [facility] Work Phone: Start: 05-19-2024 End: 05-19-2024 Telephone encounter Oz Kincaid MD Work Phone: [facility] Start: 05-07-2024 End: 05-07-2024 ambulatory Sandra A Keita DO Work Phone: [facility] Work Phone: Start: 05-07-2024 End: 05-07-2024 Patient encounter procedure Sandra Keita DO Work Phone: [facility] [place] Work Phone: Start: 04-28-2024 End: 04-30-2024 Evaluation and management of inpatient Sandra Keita DO Work Phone: [facility] [place] [facility] Work Phone: Start: 04-28-2024 End: 04-28-2024 ambulatory Sandra A Keita DO Work Phone: [facility] Work Phone: Start: 04-28-2024 End: 04-28-2024 Patient encounter procedure Sandra Keita DO Work Phone: [facility] Work Phone: Start: 04-28-2024 End: 04-28-2024 Patient encounter procedure Sandra Keita DO Work Phone: [facility] Work Phone: Start: 04-28-2024 ambulatory Sandra Keita Facility :[facility] Start: 04-27-2024 End: 04-27-2024 Emergency department patient visit Sandra Keita DO Work Phone: [facility]gency Room Work Phone: Start: 04-14-2024 End: 04-14-2024 External Result Encounter Nataliya Best Lucinda [employer] Work Phone: [facility] External Department Unsolicited Start: 04-14-2024 End: 04-14-2024 External Result Encounter Nataliya Olsenroger [employer] Work Phone: [facility] External Department Unsolicited Start: 04-14-2024 End: 04-14-2024 Patient encounter procedure Sandra Keita DO Work Phone: [facility] Work Phone: Start: 04-08-2024 End: 04-08-2024 Patient encounter procedure Karl Fritz DPM Work Phone: [facility] Comment on above: Ulcer of right foot, limited to breakdown of skin (CMS/HCC) (Primary Dx); Ulcer of right foot with fat layer exposed (CMS/HCC); 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) Start: 04-08-2024 End: 04-08-2024 ambulatory KARL FRITZ Not Available Start: 04-07-2024 End: 04-07-2024 Bamboo flowsheet Oz Kincaid MD Work Phone: [facility] Start: 04-07-2024 End: 04-07-2024 Bamboo flowsheet Oz Kincaid MD Work Phone: [facility] Start: 04-07-2024 End: 04-07-2024 Office outpatient visit 15 minutes Oz Kincaid MD Work Phone: [facility] Comment on above: Cognitive decline (P rimary Dx); B12 deficiency; Neurogenic pain; Carpal tunnel syndrome, bilateral; Cervical paraspinal muscle spasm; Guyon syndrome, unspecified laterality; Granulocytosis Start: 04-07-2024 End: 04-07-2024 ambulatory OZ KINCAID Not Available Start: 03-25-2024 End: 03-25-2024 ambulatory [facility] Start: 03-25-2024 End: 03-25-2024 Office outpatient visit 10 minutes Thuan Wise MD Work Phone: [facility] Comment on above: Hypertension, unspec ified type; Typical atrial flutter (Multi) Start: 02-25-2024 End: 02-25-2024 Office outpatient visit 25 minutes Oz Kincaid MD Work Phone: [facility] Comment on above: Cognitive decline (P rimary Dx); Neurogenic pain; Carpal tunnel syndrome, bilateral; B12 deficiency Start: 02-25-2024 End: 02-25-2024 Bamboo flowsheet Oz Kincaid MD Work Phone: [facility] Start: 02-25-2024 End: 02-25-2024 Bamboo flowsheet Oz Kincaid MD Work Phone: [facility] Start: 02-25-2024 End: 02-25-2024 ambulatory OZ KINCAID Not Available Start: 02-14-2024 End: 02-14-2024 ambulatory Sandra Keita Facility:[facility] Start: 02-14-2024 End: 02-14-2024 Departed Referred Sandra Keita DO Work Phone: [facility] Work Phone: Start: 02-10-2024 End: 02-10-2024 Bamboo flowsheet Karl Fritz DPM Work Phone: [facility] Start: 02-10-2024 End: 02-10-2024 Bamboo flowsheet Karl Fritz DPM Work Phone: [facility] Start: 02-10-2024 End: 02-10-2024 Office outpatient visit 15 minutes Karl Fritz DPM Work Phone: [facility] Comment on above: Ulcer of right foot, limited to breakdown of skin (CMS/HCC) (Primary Dx); Blister of right foot, subsequent encounter; 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); Ulcer of right foot with fat layer exposed (CMS/HCC) Start: 02-10-2024 End: 02-10-2024 ambulatory KARL FRITZ Not Available Start: 02-03-2024 End: 02-03-2024 ambulatory DO Sandra Keita Work Phone: [facility] Work Phone: Start: 02-03-2024 End: 02-03-2024 Patient encounter procedure DO Sandra Keita Work Phone: [facility] [place] Work Phone: Start: 01-27-2024 End: 01-27-2024 Bamboo flowsheet aKrl Fritz DPM Work Phone: [facility] Start: 01-27-2024 End: 01-27-2024 Bamboo flowsheet Karl Fritz DPM Work Phone: [facility] Start: 01-27-2024 End: 01-27-2024 Office outpatient visit 15 minutes Karl Fritz DPM Work Phone: [facility] Comment on above: Ulcer of right foot, limited to breakdown of skin (CMS/HCC) (Primary Dx); Blister of right foot, subsequent encounter; 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/[facility]) Start: 01-27-2024 End: 01-27-2024 ambulatory KARL FRITZ Not Available Start: 01-21-2024 End: 01-21-2024 Bamboo flowsheet Karl Fritz DPM Work Phone: [facility] Start: 01-21-2024 End: 01-21-2024 Bamboo flowsheet Karl Fritz DPM Work Phone: [facility] Start: 01-21-2024 End: 01-21-2024 Office outpatient visit 15 minutes Karl Fritz DPM Work Phone: [facility] Comment on above: Ulcer of right foot, limited to breakdown of skin ([facility]) (Primary Dx); Blister of right foot, initial encounter; 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 ([facility]) Start: 01-21-2024 End: 01-21-2024 ambulatory KARL FRITZ Not Available Start: 01-15-2024 End: 01-15-2024 ambulatory DO Sandra A Debbie Work Phone: [facility] Work Phone: Start: 01-15-2024 End: 01-15-2024 Patient encounter procedure DO Sandra Debbie Work Phone: [facility] Work Phone: Start: 01-08-2024 End: 01-10-2024 Telephone encounter Oz Kincaid MD Work Phone: [facility] 111 Start: 01-07-2024 End: 01-07-2024 Bamboo flowsheet Karl Fritz DPM Work Phone: [facility] Start: 01-07-2024 End: 01-07-2024 Bamboo flowsheet Karl Fritz DPM Work Phone: [facility] Start: 01-07-2024 End: 01-07-2024 Office outpatient visit 25 minutes Oz Kincaid MD Work Phone: [facility] Comment on above: Lumbosacral radiculo mary jane at S1 (Primary Dx); Neurogenic pain; Cervical paraspinal muscle spasm; Lumbar paraspinal muscle spasm; Carpal tunnel syndrome, bilateral; B12 deficiency Start: 01-07-2024 End: 01-07-2024 Departed Referred DO Sandra Keita Work Phone: [facility]Lab Main [place] Work Phone: Start: 01-07-2024 End: 01-07-2024 Office outpatient visit 25 minutes Karl Fritz DPM Work Phone: [facility] Comment on above: Ulcer of right foot, limited to breakdown of skin (CMS/HCC) (Primary Dx); Cellulitis of right foot Start: 01-07-2024 End: 01-07-2024 ambulatory DO Sandra Rebecca Keita Work Phone: [facility] Work Phone: Start: 01-06-2024 End: 01-06-2024 Patient encounter procedure DO Sandra Keita Work Phone: [facility]-Ultrasound Main [place] Work Phone: Start: 01-06-2024 End: 01-06-2024 ambulatory DO Sandra A Keita Work Phone: [facility] Work Phone: Start: 01-03-2024 End: 01-03-2024 ambulatory OZ KINCAID [facility] Comment on above: Carpal tunnel syndro me, bilateral (Primary Dx) Start: 01-03-2024 End: 01-03-2024 Bamboo flowsheet Oz Kincaid MD Work Phone: [facility] Start: 01-03-2024 End: 01-03-2024 Bamboo flowsheet Oz Kincaid MD Work Phone: [facility] Start: 12-17-2023 End: 12-17-2023 Patient encounter procedure DO Sandra Keita Work Phone: [facility] [address] Work Phone: Start: 12-17-2023 End: 12-17-2023 ambulatory DO Sandra A Keita Work Phone: [facility] Work Phone: Start: 12-16-2023 End: 12-16-2023 ambulatory TENZINMagalie [facility] Ambulatory Start: 12-16-2023 End: 12-16-2023 Office outpatient visit 25 minutes Thuan Wise MD Work Phone: [facility] Comment on above: High risk medication use (Primary Dx); Typical atrial flutter (Multi); Nonischemic cardiomyopathy (Multi); Hypercholesteremia; BMI 28.0-28.9,adult; BMI 30.0-30.9,adult; Current smoker Start: 12-13-2023 End: 12-13-2023 ambulatory OZ D BEJ Not Available Start: 12-12-2023 End: 12-12-2023 ambulatory OZ D BEJ Not Available Start: 12-02-2023 End: 12-02-2023 Patient encounter procedure DO Sandra Keita Work Phone: [facility] Main [place] Work Phone: Start: 12-02-2023 End: 12-02-2023 ambulatory DO Sandra A Keita Work Phone: [facility] Work Phone: Start: 11-29-2023 End: 11-29-2023 ambulatory OZ D BEJ Not Available Start: 11-26-2023 End: 11-26-2023 Patient encounter procedure DO Sandra Keita Work Phone: [facility] Main [place] Work Phone: Start: 11-26-2023 End: 11-26-2023 ambulatory DO Sandra A Keita Work Phone: [facility] Work Phone: Start: 11-26-2023 End: 01-07-2024 External Result Encounter Oz Kincaid MD Work Phone: [facility] Unsolicited Start: 11-26-2023 End: 01-07-2024 External Result Encounter Oz Kincaid MD Work Phone: [facility] External Department Unsolicited Start: 11-18-2023 End: 11-18-2023 ambulatory DO Sandra A [facility] Work Phone: [facility] Work Phone: Start: 11-18-2023 End: 11-18-2023 Patient encounter procedure DO Sandra [facility] Work Phone: [facility] [place] Work Phone: Start: 11-16-2023 Non-patient / Non-visit DO Millie jacob Keita Work Phone: [facility] Pulmonary Disease Work Phone: Start: 11-15-2023 End: 11-15-2023 Patient encounter procedure DO Sandra Keita Work Phone: [facility]-Respiratory Therapy Work Phone: Start: 11-15-2023 End: 11-15-2023 ambulatory DO Sandra A Keita Work Phone: [facility] Work Phone: Start: 11-14-2023 End: 11-14-2023 ambulatory DO Sandra A [facility] Work Phone: [facility] Work Phone: Start: 11-14-2023 End: 11-14-2023 Patient encounter procedure DO Sandra Keita Work Phone: [facility] Work Phone: Start: 11-13-2023 End: 11-13-2023 Office outpatient visit 25 minutes Jonas Ch MD Work Phone: [facility] Comment on above: Nonischemic cardiomy opathy (Multi) (Primary Dx); Typical atrial flutter (Multi); Hypercholesteremia; Primary hypertension; Current smoker; BMI 28.0-28.9,adult; High risk medication use Start: 11-13-2023 End: 11-13-2023 ambulatory JONAS [facility] Ambulatory Start: 11-13-2023 Non-patient / Non-visit DO Millie Keita Work Phone: [facility] [place] Work Phone: Start: 11-10-2023 End: 11-12-2023 ambulatory Chaka Frye Facility:[facility] Start: 11-10-2023 End: 11-12-2023 Evaluation and management of inpatient DO Sandra Keita Work Phone: [facility] Work Phone: Start: 11-06-2023 End: 11-06-2023 ambulatory JALYN SWIFTZACHARY Not Available Start: 11-05-2023 End: 11-05-2023 Admission to same day surgery center DO Sandra Keita Work Phone: [facility]-Electrodiagnostics Work Phone: Start: 11-05-2023 End: 11-05-2023 ambulatory DO Sandra Keita Work Phone: [facility] Work Phone: Start: 10-30-2023 End: 01-07-2024 External Result Encounter Oz Kincaid MD Work Phone: [facility] External Department Unsolicited Start: 10-30-2023 End: 01-07-2024 External Result Encounter Oz Kincaid MD Work Phone: [facility] External Department Unsolicited Start: 10-30-2023 End: 10-30-2023 Patient encounter procedure DO Sandra Debbie Work Phone: [facility]XRay [facility] Work Phone: Start: 10-30-2023 End: 10-30-2023 ambulatory DO Sandra A [facility] Work Phone: [facility] Work Phone: Start: 10-29-2023 End: 10-29-2023 ambulatory OZ KINCAID Not Available Start: 10-07-2023 End: 10-07-2023 Office outpatient visit 25 minutes Jonas Ch MD Work Phone: [facility] Comment on above: Typical atrial flutt er (Multi); Nonischemic cardiomyopathy (Multi); Hypertension, unspecified type; Hypercholesteremia; Smoker; Type 2 diabetes mellitus with other specified complication, 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); BMI 28.0-28.9,adult Start: 10-07-2023 End: 10-07-2023 ambulatory JONAS CH [facility] Ambulatory Start: 09-25-2023 End: 09-25-2023 ambulatory SANDRA A [facility] Ambulatory Start: 09-17-2023 End: 09-17-2023 ambulatory DO Sandra A [facility] Work Phone: [facility] Work Phone: Start: 09-17-2023 End: 09-17-2023 Patient encounter procedure DO Sandra Keita Work Phone: [facility] [place] Work Phone: Start: 09-16-2023 Non-patient / Non-visit DO Millie jacob [facility] Work Phone: [facility] [place] Work Phone: Start: 09-14-2023 End: 09-14-2023 Non-patient / Non-visit DO Sandra [facility] Work Phone: [facility] Cardiology Work Phone: Start: 09-13-2023 End: 09-14-2023 Evaluation and management of inpatient DO Sandra Debbie Work Phone: [facility] [place] [facility] Work Phone: Start: 09-12-2023 End: 09-12-2023 Patient encounter procedure DO Sandra Debbie Work Phone: [facility] Work Phone: Start: 09-09-2023 Non-patient / Non-visit DO Millie jacob Keita Work Phone: [facility] [place] Work Phone: Start: 09-05-2023 End: 09-05-2023 Patient encounter procedure DO Sandra Debbie Work Phone: [facility]Lab [facility] [place] Work Phone: Start: 09-05-2023 End: 09-05-2023 ambulatory DO Sandra A Debbie Work Phone: [facility] Work Phone: Start: 07-25-2023 End: 07-25-2023 Patient encounter procedure DO Sandra Debbie Work Phone: [facility]-CT [address] Work Phone: Start: 07-25-2023 End: 07-25-2023 ambulatory DO Sandra A Keita Work Phone: [facility] Work Phone: Start: 07-17-2023 End: 07-17-2023 ambulatory [facility] Work Phone: Start: 07-17-2023 End: 07-17-2023 [facility] encounter [facility] Work Phone: Start: 06-19-2023 End: 06-19-2023 ambulatory [facility] Work Phone: Start: 06-19-2023 End: 06-19-2023 Patient encounter procedure [facility] Work Phone: Start: 06-12-2023 End: 06-12-2023 Patient encounter procedure [facility] Work Phone: Start: 06-12-2023 End: 06-12-2023 ambulatory Tondra K Yvonne [facility] Work Phone: Start: 06-10-2023 End: 06-10-2023 ambulatory Tondra Yvonne Other [employer] Other Start: 06-10-2023 Telephone encounter Tona Yvonne [facility] Start: 05-21-2023 End: 05-21-2023 ambulatory Sandra Keita Other [employer] Other Start: 05-21-2023 Telephone encounter Sandrarebecca Keita [facility] Start: 04-30-2023 End: 04-30-2023 ambulatory Tondrrebecca Russell Other [employer] Other Start: 04-30-2023 Telephone encounter Tondrrebecca [facility] Start: 04-11-2023 End: 04-11-2023 ambulatory Sandrarebecca Keita Other [employer] Other Start: 04-11-2023 Telephone encounter Sandra Debbie [facility] Start: 04-08-2023 End: 04-08-2023 ambulatory Sandra Keita Other [employer] Other Start: 04-08-2023 Telephone encounter Sandra Keita [facility] Start: 03-05-2023 End: 03-05-2023 ambulatory DO Jonas Yoder Work Phone: [facility] Work Phone: Start: 03-05-2023 End: 03-05-2023 Patient encounter procedure DO Jonas Yoder Work Phone: [facility] Work Phone: Start: 03-04-2023 End: 03-04-2023 ambulatory Sandra Keita Other [employer] Other Start: 03-04-2023 Office outpatient vi sit 25 minutes Sandra Keita [facility] Start: 01-28-2023 End: 01-28-2023 ambulatory Sandra Keita Other [employer] Other Start: 01-28-2023 Telephone encounter Sandra Keita [facility] Start: 01-07-2023 Registered Recurring DO Beba Yoder Work Phone: [facility] Work Phone: Start: 01-07-2023 (DM) Diabetes Tondra Mapus [facility] Start: 01-07-2023 End: 01-07-2023 ambulatory Tondra Mapus Other [employer] Other Start: 01-02-2023 End: 01-02-2023 ambulatory Brayden Noble Other [employer] Other Start: 01-02-2023 Office outpatient vi sit 15 minutes Brayden Noble [facility] Gastroenterology Start: 12-28-2022 End: 12-28-2022 ambulatory Sandra Keita Other [employer] Other Start: 12-28-2022 Telephone encounter Sandra Keita [facility] Start: 12-18-2022 End: 12-18-2022 ambulatory Reyna Diopr Other [employer] Other Start: 12-18-2022 Telephone encounter Reyna Diopr [facility] Medicine [place] Start: 12-10-2022 End: 12-10-2022 ambulatory Tondra Mapus Other [employer] Other Start: 12-10-2022 Telephone encounter Tondra Yvonne [facility] Start: 11-28-2022 End: 11-28-2022 ambulatory Sandra Keita Other [employer] Other Start: 11-28-2022 Patient encounter procedure Sandra Keita [facility] Start: 11-27-2022 End: 11-27-2022 ambulatory Sandrarebecca Keita Other [employer] Other Start: 11-27-2022 Telephone encounter Sandra Keita [facility] Start: 11-06-2022 End: 11-06-2022 ambulatory Sandrarebecca Keita Other [employer] Other Start: 11-06-2022 Telephone encounter Sandra Keita [facility] [place] Start: 09-27-2022 (DM) Diabetes Tondra Mapus [facility] Start: 09-27-2022 End: 09-27-2022 ambulatory Tondra Mapus Other [employer] Other Start: 09-10-2022 End: 09-10-2022 ambulatory Sandra Keita Other [employer] Other Start: 09-10-2022 Telephone encounter Sandra Keita [facility] [place] Start: 09-05-2022 Telephone encounter Sandrarebecca Keita [facility] [place] Start: 09-05-2022 End: 09-05-2022 ambulatory DO Sandra Rebecca Keita Work Phone: [facility] Work Phone: Start: 09-05-2022 End: 09-05-2022 Patient encounter procedure DO Sandrarebecca Keita Work Phone: [facility] Work Phone: Start: 08-22-2022 Telephone encounter Sandra Debbie [facility] Start: 08-22-2022 End: 08-22-2022 ambulatory DO Sandra Rebecca Keita Work Phone: [facility] Work Phone: Start: 08-22-2022 End: 08-22-2022 Patient encounter procedure DO Sandrarebecca Kieta Work Phone: [facility]-[address] Work Phone: Start: 08-09-2022 End: 08-09-2022 ambulatory Sandrarebecca Keita Other [employer] Other Start: 08-09-2022 Office outpatient vi sit 15 minutes Sandrajacob Keita [facility] Start: 08-06-2022 End: 08-06-2022 ambulatory Sandra Keita Other [employer] Other Start: 08-06-2022 Telephone encounter Sandra Debbie [facility] Start: 07-10-2022 End: 07-10-2022 ambulatory Sandra Keita Other [employer] Other Start: 07-10-2022 Telephone encounter Sandra Keita [facility] [place] Start: 07-04-2022 End: 07-04-2022 ambulatory Tolu Salinas Other [employer] Other Start: 07-04-2022 Telephone encounter Tolu Parikhvalerie [facility] [place] Start: 06-19-2022 End: 06-19-2022 ambulatory Tondra Mapus Other [employer] Other Start: 06-19-2022 Telephone encounter Tondra Mapus [facility] Start: 06-18-2022 (DM) Diabetes Tondra Mapus [facility] Start: 06-18-2022 End: 06-18-2022 ambulatory Tondra Mapus Other [employer] Other Start: 06-14-2022 End: 06-14-2022 ambulatory Tondra Mapus Other [employer] Other Start: 06-14-2022 Telephone encounter Tondra Leonardous [facility] Start: 06-08-2022 End: 06-08-2022 ambulatory Tondra Mapus Other [employer] Other Start: 06-08-2022 Telephone encounter Tondra Mapus [facility] Start: 06-04-2022 End: 06-04-2022 ambulatory Sandra Keita Other [employer] Other Start: 06-04-2022 Telephone encounter Sandra Keita [facility] [place] Start: 05-30-2022 End: 05-30-2022 ambulatory Sandra Keita Other [employer] Other Start: 05-30-2022 Telephone encounter Sandra Keita [facility] [place] Start: 05-24-2022 End: 05-24-2022 ambulatory Sandra Keita Other [employer] Other Start: 05-24-2022 Telephone encounter Sandra Keita [facility] [place] Start: 04-03-2022 End: 04-03-2022 ambulatory Sandra Keita Other [employer] Other Start: 04-03-2022 Telephone encounter Sandra Keita [facility] [place] Start: 02-14-2022 End: 02-14-2022 ambulatory Sandra Keita Other [employer] Other Start: 02-14-2022 Telephone encounter Sandra Keita [facility] [place] Start: 01-09-2022 (DM) Diabetes Tondra Yvonne [facility] Start: 01-09-2022 End: 01-09-2022 ambulatory Angelique Russell Other [employer] Other Start: 12-21-2021 ambulatory Teresa Strong Facility:[facility] Start: 12-18-2021 ambulatory Francesca Santos Faci lity:[facility] [place] Start: 12-17-2021 End: 12-17-2021 Emergency department patient visit DO Tray Randle [facility]Emergency Room Start: 12-13-2021 ambulatory Francesca Santos Facili ty:ENRIQUE [place] Start: 12-12-2021 End: 12-13-2021 ambulatory ARLEEN STEPHEN Facility:[id number] Start: 12-11-2021 End: 12-12-2021 ambulatory ARLEEN STEPHEN Facility:CD:[id number] Start: 12-09-2021 End: 12-13-2021 Evaluation and management of inpatient DO Tray Randle [facility] Start: 10-12-2021 End: 10-12-2021 ambulatory Crispin Looney Other [employer] Other Start: 10-12-2021 Patient encounter procedure Crispin Looney [facility] [place] Start: 10-12-2021 Telephone encounter Crispin Looney [facility] [place] Start: 09-13-2021 End: 09-13-2021 ambulatory Crispin Looney Other [employer] Other Start: 09-13-2021 Telephone encounter Crispin Mejias [facility] [place] Start: 08-28-2021 End: 08-28-2021 ambulatory Tondra Mapus Other [employer] Other Start: 08-28-2021 Telephone encounter Tondra Mapus [facility] Start: 07-10-2021 (DM) Diabetes Tondra Mapus [facility] Start: 07-10-2021 End: 07-10-2021 ambulatory Tondra Mapus Other [employer] Other Start: 07-03-2021 End: 07-03-2021 ambulatory Kamal Jovani Other [employer] Other Start: 07-03-2021 Office outpatient ne w 30 minutes Kamdaja Jovani [facility] Start: 06-28-2021 End: 06-28-2021 ambulatory Crispinjaclyn LeeAayush Other [employer] Other Start: 06-28-2021 Telephone encounter Crispin Aayush Magalie [facility] [place] Start: 05-25-2021 End: 05-25-2021 ambulatory Crispin Aayush Other [employer] Other Start: 05-25-2021 Telephone encounter Crispin Aayush Magalie [facility] [place] Start: 05-08-2021 End: 05-08-2021 ambulatory Crispin Looney Other [employer] Other Start: 05-08-2021 Office outpatient ne w 45 minutes Crispin Looney [facility] [place] Start: 04-11-2021 End: 04-11-2021 ambulatory Angelique Russell Other [employer] Other Start: 04-11-2021 Telephone encounter Angelique Wynn [facility] Start: 04-03-2021 End: 04-03-2021 ambulatory Tray Brandy Other [employer] Other Start: 04-03-2021 Office outpatient vi sit 15 minutes Tray Nava [facility] Start: 03-27-2021 (DM) Diabetes Angelique Russell [facility] Start: 03-27-2021 End: 03-27-2021 ambulatory Angelique Russell Other [employer] Other Start: 02-27-2021 End: 02-27-2021 ambulatory Tray Nava Other [employer] Other Start: 02-27-2021 Office outpatient vi sit 15 minutes Tray Nava [facility] Start: 05-16-2017 End: 05-16-2017 Ambulatory MATTHEW VOSS Facility:UNKNOWN Start: 01-25-2017 End: 01-26-2017 Ambulatory ELOISA PRETTY Facility:H1 Procedures Date Procedure Procedure Detail Performing Clinician Start: 05-25-2024 MRI of head Sandra Jaiden landis DO Work Phone: Start: 04-29-2024 Urine culture Sandra Sushma nini DO Work Phone: Start: 04-28-2024 CT angiography of head Sandra Keita DO Work Phone: Start: 04-28-2024 CT angiography of ne ck vessels Sandra Keita DO Work Phone: Start: 04-28-2024 CT of head without contrast Sandra Keita DO Work Phone: Start: 04-28-2024 Plain chest X-ray Magdalena a Keita DO Work Phone: Start: 04-28-2024 Respiratory Panel (PCR) Sandra Keita DO Work Phone: Start: 04-14-2024 Complete blood count with white cell differential, automated Nataliya Jane [employer] Work Phone: Start: 04-14-2024 Comprehensive metabo lic panel Nataliya Jane [employer] Work Phone: Start: 04-14-2024 PATHOLOGIST SLIDE RE VIEW ([employer] [facility] [employer]) Nataliya Jane [employer] Work Phone: Start: 03-25-2024 Ecg routine ecg w/le ast 12 lds w/i&r Thuan Wise MD Work Phone: Start: 01-07-2024 Aerobic microbial culture DO Sandra Keita Work Phone: Start: 01-06-2024 Duplex scan of lower limb veins DO Sandra Keita Work Phone: Start: 12-17-2023 MR lumbar spine wo con DO Sandra Keita Work Phone: Start: 12-17-2023 XR pre/post mri xray DO Sandra Keita Work Phone: Start: 12-16-2023 Ecg routine ecg w/le ast 12 lds w/i&r Thuan Wise MD Work Phone: Start: 11-26-2023 ANCA PROFILE (ANCA+MPO+PR3) Oz Kincaid MD Work Phone: Start: 11-26-2023 ANTI-CENTROMERE B ANTIBODIES Oz Kincaid MD Work Phone: Start: 11-26-2023 ANTI-DSDNA(DBL)AB Oz Kincaid MD Work Phone: Start: 11-26-2023 ANTI-MILITARY EDUCATION COORDINATOR Oz Kincaid MD Work Phone: Start: 11-26-2023 Antinuclear antibodies beatrice Oz Kincaid MD Work Phone: Start: 11-26-2023 ANTIRIBOSOMAL P ANTIBODIES Oz Kincaid MD Work Phone: Start: 11-26-2023 HISTONE ANTIBODIES Oz Kincaid MD Work Phone: Start: 11-26-2023 Immunoassay analyte qual/semiqual multiple step Oz Kincaid MD Work Phone: Start: 11-26-2023 SUSHMA-1 ANTIBODY Oz ngo MD Work Phone: Start: 11-26-2023 LACTATE AND PYRUVATE Carolina Kincaid MD Work Phone: Start: 11-26-2023 SCLERODERMA 70 ANTIBODIES Oz Kincaid MD Work Phone: Start: 11-26-2023 SJOGRENS ANTI-SSA/SSB M ark Lillian Kincaid MD Work Phone: Start: 11-26-2023 SRP AUTOANTIBODIES Oz Kincaid MD Work Phone: Start: 11-13-2023 Ecg routine ecg w/le ast 12 lds w/i&r Jonas Ch MD Work Phone: Start: 11-11-2023 MRI of head DO Sandra Keita Work Phone: Start: 11-10-2023 Bacteria identified in Urine by Culture DO Sandra Keita Work Phone: Start: 11-10-2023 Urine culture DO Sandra Keita Work Phone: Start: 11-10-2023 CT of head without contrast DO Sandra Keita Work Phone: Start: 10-30-2023 LACTATE AND PYRUVATE Carolina Kincaid MD Work Phone: Start: 10-30-2023 X-ray of lumbar spin e, six views including bending views DO Sandra Keita Work Phone: Start: 10-30-2023 Thyrotropin [Units/v olume] in Serum or Plasma Jonas Ch MD Work Phone: Start: 09-12-2023 Plain chest X-ray DO Satish Keita Work Phone: Start: 07-25-2023 CT of lungs DO Sandra Keita Work Phone: Start: 03-05-2023 Dual energy X-ray absorptiometry DO Jonas Yoder Work Phone: Start: 09-05-2022 Screening mammograph y of bilateral breasts DO Sandra Keita Work Phone: Start: 08-22-2022 CT of lungs DO Sandra Keita Work Phone: Start: 12-17-2021 Computed tomography of abdomen and pelvis with contrast DO Tray Randle Start: 12-12-2021 Diagnostic laparoscopy DO Tray Randle Start: 12-09-2021 US scan of gallbladder DO Tray Randle Start: 12-09-2021 CT of abdomen and pe lvis without contrast DO Tray Randle Start: 06-10-2020 Mammography Jonas Gilbert MD Work Phone: Start: 12-17-2018 Antibody screen Comment on above: Performed By: #### T [id number] #### [place] [address] Blood culture for ba cteria, including anaerobic screen DO Tray Jer SARS Antigen (LFIA) DO Sunni umu Randle Urine culture DO Trya Arturo yates Urine culture DO Tray Morris milan Plan of Treatment Date Care Activity Detail Author Start: 10-29-2024 Thyroid stimulating hormone measurement TSH Level [facility] Start: 10-06-2024 End: 10-06-2024 Patient encounter procedure 10/06/2024 1:30 PM EDT Office Visit [facility] [address] [facility] [address] [place] [address] Dayana Dodge, [employer] [address] Is[address] Magana, [facility] [address] [place] [address] [facility] Start: 05-26-2024 End: 05-26-2024 Patient encounter procedure 05/26/2024 2:40 PM EST Office Visit [place] [facility] [address] [facility] [address] [place] [phone] Thuan Wise MD [address] [place] [address] [facility] Start: 05-07-2024 End: 05-07-2024 Patient encounter procedure 05/07/2024 2:15 PM EST Office Visit [facility] [address] [place] [phone] Karl Fritz DPM [address] [place] [address] [facility] Start: 04-30-2024 [facility] Start: 04-29-2024 End: 04-29-2024 Urine culture [facility] Start: 04-29-2024 Referral to neurologist [facility] Start: 04-29-2024 [facility] Start: 04-28-2024 Hospital admission [facility] Start: 04-28-2024 [facility] Start: 04-07-2024 End: 04-07-2024 Patient encounter procedure 04/07/2024 3:30 PM EST Office Visit [facility] [address] [place] [phone] Karl Fritz DPM [address] [place] [address] [facility] Start: 04-07-2024 End: 04-07-2024 Patient encounter procedure [facility] Comment on above: Arrived Start: 03-27-2024 End: 03-27-2024 Patient encounter procedure 03/27/2024 10:10 AM EST Office Visit [address] [place] [phone] Thuan Wise MD [address] [facility] [address] [place] [address] [facility] Start: 03-24-2024 End: 03-24-2024 Patient encounter procedure 03/24/2024 1:30 PM EST Office Visit [facility] [address] [place] [address] Karl Fritz, DPM [address] [place] [address] [facility] Start: 03-10-2024 End: 03-10-2024 Patient encounter procedure 03/10/2024 1:30 PM EST Office Visit [facility] [address] [place] [phone] Karl Fritz, DPM [address] [place] [address] [facility] Start: 02-25-2024 End: 02-25-2024 Patient encounter procedure [facility] Comment on above: Arrived Start: 02-10-2024 End: 02-10-2024 Patient encounter procedure [facility] Comment on above: Arrived Start: 01-28-2024 End: 01-28-2024 Patient encounter procedure 01/28/2024 1:30 PM EDT Office Visit [facility] [address] [place] [phone] Oz Kincaid MD [address] [facility] [address] [address] [facility] Start: 01-27-2024 End: 01-27-2024 Patient encounter procedure [facility] Comment on above: Arrived Start: 01-21-2024 End: 01-21-2024 Patient encounter procedure 01/21/2024 11:00 AM EDT [facility] [address] [place] [address] Karl Fritz DPM [address] [place] [address] Arrived [facility] Comment on above: Arrived Start: 01-07-2024 Superficial Wound Culture Superficial Wound Culture [facility] Start: 01-07-2024 End: 01-06-2025 SUPERFICIAL WOUND CULTURE ([employer] [facility]) SUPERFICIAL WOUND CULTURE ([employer]) Microbiology Routine Ulcer of right foot, limited to breakdown of skin (CMS/HCC) Cellulitis of right foot Expected: 01/07/2024 (Approximate), Expires: 01/06/2025 [facility] Work Phone: Comment on above: Expected: 01/07/2024 (Approximate), Expi res: 01/06/2025 Start: 01-07-2024 End: 01-07-2024 Patient encounter procedure 01/07/2024 1:15 PM EDT [facility] [address] [place] [address] Oz Kincaid MD [address] [facility] [place] [phone] [facility] Start: 01-07-2024 End: 01-07-2024 Patient encounter procedure 01/07/2024 9:45 AM EDT Office [facility] [address] [place] [phone] Karl Fritz DPM [address] [place] [address] Arrived [facility] Comment on above: Arrived Start: 01-06-2024 Duplex scan of lower limb veins US venous duplex LE BI [facility] Start: 01-06-2024 US Lower extremity vein - bilateral [facility] Start: 12-29-2023 COVID-19 Vaccine ( season) COVID-19 Vaccine ( season) [facility] Start: 12-29-2023 Influenza vaccination [facility] Start: 12-02-2023 Blood zinc measurement [facility] Start: 12-02-2023 End: 12-02-2023 [facility] Start: 11-26-2023 Antibody to Scl-70 measurement [facility] Start: 11-26-2023 MILITARY EDUCATION COORDINATOR antibody measurement [facility] Start: 11-26-2023 [facility] Start: 11-13-2023 End: 11-12-2024 Aspartate aminotransferase [Enzymatic activity/volume] in Serum or Plasma by With P-5'-P Aspartate Aminotransferase Lab Routine High risk medication use Expected: 11/13/2023 (Approximate), Expires: 11/12/2024 [facility] Service Area Work Phone: Comment on above: Expected: 11/13/2023 (Approximate), Expi res: 11/12/2024 Start: 11-13-2023 End: 11-12-2024 Basic metabolic 2000 panel - Serum or Plasma Basic Metabolic Panel Lab Routine High risk medication use Expected: 11/13/2023 (Approximate), Expires: 11/12/2024 [facility] Work Phone: Comment on above: Expected: 11/13/2023 (Approximate), Expi res: 11/12/2024 Start: 11-13-2023 End: 11-12-2024 Complete Pulmonary Function Test (Spirometry/DLCO/Lung Volumes) Complete Pulmonary Function Test (Spirometry/DLCO/Lung Volumes) PFT Routine Typical atrial flutter (Multi) Expected: 11/13/2023 (Approximate), Expires: 11/12/2024 [facility] Work Phone: Comment on above: Expected: 11/13/2023 (Approximate), Expi res: 11/12/2024 Start: 11-13-2023 End: 11-13-2023 Patient encounter procedure 11/13/2023 2:00 PM EDT Office Visit [place] [address] [place] [phone] Jonas Ch MD [facility] [facility] [address] [place] [address] [facility] Start: 11-13-2023 End: 11-12-2024 Thyrotropin [Units/volume] in Serum or Plasma Thyroid Stimulating Hormone Lab Routine High risk medication use Expected: 11/13/2023 (Approximate), Expires: 11/12/2024 [facility] Work Phone: Comment on above: Expected: 11/13/2023 (Approximate), Expi res: 11/12/2024 Start: 11-13-2023 End: 11-12-2024 XR Chest 2 Views XR chest 2 views Imaging Routine Typical atrial flutter (Multi) Expected: 11/13/2023 (Approximate), Expires: 11/12/2024 [facility] Work Phone: Comment on above: Expected: 11/13/2023 (Approximate), Expi res: 11/12/2024 Start: 11-12-2023 [facility] Start: 11-11-2023 [facility] Start: 11-10-2023 Bacteria identified in Urine by Culture [facility] Start: 11-10-2023 Referral to neurologist [facility] Start: 11-10-2023 Hospital admission [facility] Start: 11-10-2023 Physical therapy procedure [facility] Start: 11-10-2023 Referral to occupational therapist [facility] Start: 11-10-2023 [facility] Start: 11-10-2023 [facility] Start: 11-05-2023 [facility] Start: 10-30-2023 Blood zinc measurement [facility] Start: 10-30-2023 [facility] Start: 10-28-2023 End: 10-06-2025 Cardioversion External Cardioversion External Cardiac Services Routine Typical atrial flutter (Multi) Expected: 10/28/2023 (Approximate), Expires: 10/06/2025 [facility] Service Area Work Phone: Comment on above: Expected: 10/28/2023 (Approximate), Expi res: 10/06/2025 Start: 09-14-2023 [facility] Start: 09-12-2023 Referral to waterproofing supervisor [facility] Start: 09-12-2023 Hospital admission [facility] Start: 12-28-2022 COVID-19 Vaccine ( season) COVID-19 Vaccine ( season) [facility] Start: 12-17-2021 Computed tomography of abdomen and pelvis with contrast CT abdomen pelvis w con [facility] Start: 12-17-2021 End: 12-17-2021 Emergency department patient visit Departed Emergency [facility] Start: 12-13-2021 [facility] Work Phone: Start: 12-11-2021 Referral to urologist [facility] Work Phone: Start: 12-11-2021 Referral to general surgeon [facility] Work Phone: Start: 12-09-2021 Hospital admission [facility] Work Phone: Start: 06-10-2021 Screening for malignant neoplasm of breast Mammogram [facility] Start: 2017 RSV High Risk: (Elderly (60+) or Population) (1 - Risk 60-74 years 1-dose series) RSV High Risk: (Elderly (60+) or Population) (1 - Risk 60-74 years 1-dose series) [facility] Start: 2017 RSV patients and/or patients aged 60+ years (1 - 1-dose 60+ series) RSV patients and/or patients aged 60+ years (1 - 1-dose 60+ series) [facility] Start: 11-26-2007 Zoster Vaccines (1 of 2) Zoster Vaccines (1 of 2) [facility] Start: 11-26-1979 DTaP/Tdap/Td Vaccines (1 - Tdap) DTaP/Tdap/Td Vaccines (1 - Tdap) [facility] Start: 1978 Screening for malignant neoplasm of cervix [facility] Start: 1976 Urine screening for protein Diabetes: Urine Protein Screening [facility] Start: 11-26-1975 Hepatitis C screening Hepatitis C Screening [facility] Start: 11-26-1967 Diabetic foot examination Diabetes: Foot Exam [facility] Start: 11-26-1967 Glaucoma screening Diabetes: Retinopathy Screening [facility] Start: 11-26-1963 Pneumococcal Vaccine: 65+ Years (1 of 2 - PCV) Pneumococcal Vaccine: 65+ Years (1 of 2 - PCV) [facility] Start: 1958 MMR Vaccines (1 of 1 - Standard series) MMR Vaccines (1 of 1 - Standard series) [facility] Start: 1957 Annual wellness visit [facility] Start: 1957 Hemoglobin A1c measurement Diabetes: Hemoglobin A1C [facility] Start: 1957 Lipid panel Lipid Panel [facility] Start: 1957 Medicare Annual Wellness Visit Medicare Annual Wellness Visit (AWV) [facility] Start: 1957 Screening for malignant neoplasm of colon [facility] Start: 1957 Screening for osteoporosis Bone Density Scan [facility] Start: 1957 Thyroid stimulating hormone measurement TSH Level [facility] 24 hour urine measurement [facility] Albumin [Mass/volume ] in Serum or Plasma [facility] Albumin/Globulin ratio [facility] Aldolase measurement [facility] Angiotensin converti ng enzyme [Enzymatic activity/volume] in Serum or Plasma [facility] Antibody measurement [facility] Arsenic measurement [facility] Bacteria identified in Unspecified specimen by Aerobe culture [facility] Borrelia burgdorferi Ab [Interpretation] in Serum [facility] Borrelia burgdorferi IgG Ab [Presence] in Serum or Plasma by Immunoassay [facility] Borrelia burgdorferi IgG+IgM Ab [Presence] in Serum by Immunoassay [facility] Borrelia burgdorferi IgM Ab [Presence] in Serum or Plasma by Immunoassay [facility] Centromere protein B Ab [Units/volume] in Serum [facility] Ceruloplasmin [Mass/ volume] in Serum or Plasma [facility] Ceruloplasmin [Mass/ volume] in Serum or Plasma [facility] Complement C3 [Mass/ volume] in Serum or Plasma [facility] Complement C4 [Mass/ volume] in Serum or Plasma [facility] Comprehensive metabo lic 1999 panel - Serum or Plasma [facility] Comprehensive metabo lic 1999 panel - Serum or Plasma [facility] Comprehensive metabo lic 1999 panel - Serum or Plasma [facility] Copper measurement [facility] Cryoglobulin [Presen ce] in Serum [facility] Electrophoresis: [id number] [facility] Electrophoresis: [id number] [facility] Electrophoresis: beta-globulin [facility] Electrophoresis: gaby ma globulin [facility] Globulin [Mass/volum e] in Serum [facility] Glucose measurement estimated from glycated hemoglobin [facility] Hepatitis A virus an tibody, IgM type [facility] Hepatitis B core ant ibody measurement, IgM type [facility] Hepatitis B virus razo rface Ag [Presence] in Serum or Plasma by Immunoassay [facility] Hepatitis C virus Ig G Ab [Presence] in Serum or Plasma by Immunoassay [facility] Hepatitis C virus RN A [log units/volume] (viral load) in Serum or Plasma by TEJINDER with probe detection [facility] Hepatitis C virus RN A [Units/volume] (viral load) in Serum or Plasma by TEJINDER with probe detection [facility] Histone IgG Ab [Units/volume] in Serum by Immunoassay [facility] HIV 1+2 Ab+HIV1 p24 Ag [Presence] in Serum or Plasma by Immunoassay [facility] Homocysteine [Moles/ volume] in Serum or Plasma [facility] Homogenous nuclear A b pattern [Titer] in Serum [facility] Homogenous nuclear A b pattern [Titer] in Serum [facility] IgA [Mass/volume] in Serum or Plasma [facility] IgG [Mass/volume] in Serum or Plasma [facility] IgM [Mass/volume] in Serum or Plasma [facility] Immunofixation for Urine [facility] Sushma-1 extractable nuc lear Ab [Units/volume] in Serum [facility] Lead [Presence] in Blood [facility] Lutropin [Units/volu me] in Serum or Plasma [facility] Measurement of monoc lonal protein concentration [facility] Mercury [Mass/volume ] in Blood [facility] Methylmalonate [Moles/volume] in Serum or Plasma [facility] MG Breast - bilatera l Screening [facility] Mitochondria M2 IgG Ab [Units/volume] in Serum [facility] Myeloperoxidase Ab [Units/volume] in Serum by Immunoassay [facility] Neutrophil cytoplasm ic Ab.classic [Titer] in Serum by Immunofluorescence [facility] Nuclear Ab [Titer] in Serum [facility] Nuclear Ab [Titer] in Serum [facility] P-ANCA measurement [facility] Patient Education [facility] Work Phone: Patient referral [facility] Work Phone: Porphobilinogen [Mass/volume] in Urine [facility] Protein [Mass/volume ] in Serum or Plasma [facility] Protein [Mass/volume ] in Urine [facility] Proteinase 3 Ab [Units/volume] in Serum by Immunoassay [facility] Pyridoxine [Mass/vol ume] in Serum or Plasma [facility] Reagin Ab [Presence] in Serum by RPR [facility] Rheumatoid factor [Units/volume] in Serum or Plasma [facility] Ribosomal P Ab [Units/volume] in Serum [facility] Serum immunofixation [facility] Sjogrens syndrome-A extractable nuclear Ab [Units/volume] in Serum [facility] Sjogrens syndrome-B extractable nuclear Ab [Units/volume] in Serum [facility] Fritz extractable nu clear Ab [Units/volume] in Serum [facility] Thallium [Mass/volum e] in Serum or Plasma [facility] West Nile virus IgG Ab [Presence] in Serum by Immunoassay [facility] West Nile virus IgM Ab [Presence] in Serum by Immunoassay [facility] Immunizations Immunization Date Immunization Notes Care Provider Radha pruitt 04-02-2002 measles, mumps and rubella virus vaccine Sandra Keita Other [facility] NEGATED: Highlighted row has not occurred!03-04-2023 Flu Shot - Documentation Purposes Only Sandra Keita Other [employer] Other NEGATED: Highlighted row has not occurred!04-16-2022 influenza, seasonal, injectable Patient Objection Sandra Keita Other [facility] Payers Date Payer Category Payer Medicare [id number] 2023 Self-pay [id number] 2023 Dual Eligibility Medicare/Medicaid Organization [facility] DUAL COMPLETE [id number] 2023 Private Health Insurance [facility] DUAL COMPLETE [facility] DUAL COMPLETE [id number] 2023-Present [address] [address] [place] [address] [id number] .[id number] 2022 Medicare [id number] 2.16.840.1.805092.19 2022 Medicare [employer] DUAL COMPLETE [id number] 2022-Present [address] [place] [address] [id number] .[id number] 2022 Medicare (Managed Care) [facility] MEDIC[facility] [id number] 2022 Private Health Insurance [id number] 2021 Medicaid [id number] 2021 [employer] [facility] [id number] 2.16.840.1.793648.19 2017 Unknown [id number] 1959 Medicaid [id number] 1957 Unknown [id number] 2.16.840.1.543937.3.579.2 .72 1957 Unknown [id number] 2.16.840.1.513775.3.579.2 .1957 Unknown [id number] 2.16.840.1.375015.3.579.2 .1957 Unknown [id number] 2.16.840.1.845239.3.579.2 .1957 Unknown [id number] 2.16.840.1.998151.3.579.2 .727 1957 Unknown [id number] 2.16.840.1.799271.3.579.2 .1259 1957 Unknown [id number] 2.16.840.1.266125.3.579.2 .1258 1957 Unknown [id number] 2.16.840.1.870577.3.579.2 .1258 1957 Unknown [id number] 2.16.840.1.511291.3.579.2 .1258 1957 Unknown [id number] 2.16.840.1.733683.3.579.2 .1258 1957 Unknown [id number] 2.16.840.1.057164.3.579.2 .1258 1957 Unknown [id number] 2.16.840.1.980445.3.579.2 .1258 1957 Unknown [id number] 2.16840.1.529597.3.579.2 .1258 1957 Unknown [id number] 2.16840.1.262735.3.579.2 .1258 1957 Unknown [id number] 2.16.840.1.167641.3.579.2 .1258 1957 Unknown [id number] 2.16.840.1.108129.3.579.2 .1258 1957 Unknown [id number] 2.16.840.1.245175.3.579.2 .1258 1957 Unknown [id number] 2.16.840.1.432257.3.579.2 .1258 1957 Unknown [id number] 2.16.840.1.813214.3.579.2 .1258 1957 Unknown [id number] 2.16.840.1.039949.3.579.2 .1243 1957 Unknown [id number] 2.16.840.1.196239.3.579.2 .1243 1957 Unknown [id number] 2.16.840.1.330346.3.579.2 .1244 1957 Unknown [id number] 2.16.840.1.993895.3.579.2 .124 1957 Unknown [id number] 2.16.840.1.346846.3.579.2 .1244 1957 Unknown [id number] 2.16840.1.341285.3.579.2 .1244 Medicare [id number] 2.16.840.1.662906.19 Unknown [id number] 2.16.840.1.356875.3.579.2 .531 Unknown [id number] 2.16840.1.525769.3.579.2 .531 Unknown [id number] 2.16.840.1.598294.3.579.2 .531 Unknown [id number] 2.840.1.795972.3.579.2 .531 Unknown [id number] 2.16840.1.378419.3.579.2 .531 Unknown [id number] 2.16840.1.431914.3.579.2 .531 Unknown [id number] 2.16840.1.271679.3.579.2 .531 Unknown [id number] 2.16840.1.012919.3.579.2 .531 Unknown [id number] 2.16840.1.261143.3.579.2 .531 Unknown [id number] 2.16840.1.036671.3.579.2 .531 Unknown [id number] 2.16840.1.182228.3.579.2 .531 Unknown [id number] 2.16.840.1.642223.3.579.2 .531 Unknown [id number] 2.16.840.1.416159.3.579.2 .531 Unknown [id number] 2.16840.1.564625.3.579.2 .531 Unknown [id number] 2.16.840.1.401097.3.579.2 .531 Unknown [id number] 2.16.840.1.782821.3.579.2 .531 Unknown [id number] 2.16.840.1.494918.3.579.2 .531 Unknown [id number] 2.16.840.1.949875.3.579.2 .531 Social History Date Type Detail Facility Unknown if ever smoked [employer] Other Start: 10-07-2023 End: 04-08-2024 Sex Assigned At [facility] [employer] Other Start: 12-17-2021 End: 04-28-2024 Tobacco smoking status [facility] Smoker (finding) [facility] Start: 1955 Sex Assigned At Female F [facility] Start: 04-29-1975 End: 10-07-2023 Tobacco smoking status NHIS Smokes tobacco daily [facility] Start: 04-29-1975 History of tobacco use Cigarette Smo ker [facility] Work Phone: Start: 10-07-2023 Tobacco use and exposure Smokeless tobacco non-user [facility] Work Phone: Start: 10-07-2023 End: 04-08-2024 Alcoholic beverage intake Lifetime non-drinker (finding) [facility] Work Phone: Start: 10-07-2023 End: 04-08-2024 History of Social function [facility] Work Phone: Start: 1955 [facility] Start: 09-27-2023 End: 03-25-2024 Exposure to SARS-CoV-2 (event) Not sure [facility] Start: 01-29-2023 Tobacco use and exposure User of smokeless tobacco [facility] Start: 01-29-2023 Tobacco Comment Smokes 11-20 c igs per day [facility] Start: 01-09-2023 Alcohol Comment caffeine intak e: occasional [facility] Start: 04-29-2024 End: 05-26-2024 Sex Female (finding) [facility] Medical Equipment Procedure Code Equipment Code Equipment Origin al Text Equipment Identifier Dates Start: 07-10-2018 Goals Date Patient Goal Desired Activity /State Functional Status Date Assessment Result Facility 04-30-2024 Functional status Patient at [facility] Work Phone: 11-12-2023 Functional status Patient at Baseline [facility] Work Phone: 09-14-2023 Functional status Patient at Baseline [facility] Work Phone: 12-13-2021 Functional status Patient at Baseline [facility] Work Phone: Mental Status Date Assessment Result Facility 04-30-2024 Cognitive function Cognitive Sta tus Patient at Baseline [facility] Work Phone: 11-12-2023 Cognitive function Cognitive Sta tus Patient at Baseline [facility] Work Phone: 09-14-2023 Cognitive function Cognitive Sta tus Patient at Baseline [facility] Work Phone: 12-13-2021 Cognitive function Cognitive Sta tus Patient at Baseline [facility] Work Phone: Clinical Notes 02-27-2021 to 05-19-2024 Telephone Encounter - Cali Duque - 05/19/2024 11:20 AM ESTTelephone Encounter - Cali Duque - 05/19/2024 11:20 AM EST Note Date & Type Note Facility 05-19-2024 Telephone encounter Note Form atting of this note might be different from the original. Daughter same day canceled same day canceled today's appointment due to overslept. RS for 06/02/24 [facility] 05-19-2024 Miscellaneous Notes Formattin g of this note might be different from the original. Daughter same day canceled same day canceled today's appointment due to overslept. RS for 06/02/24 documented in this encounter [facility] 04-30-2024 Progress note [facility] 04-30-2024 Discharge summary Note Date/Time April 30, 2024 10:28am [facility] [address] [place] [address] Discharge Summary Signed Patient: Taye Gay MR#: [id number] : 1955 Acct:[id number] Age/Sex: 68 / F Adm Date: 4 Loc: 3T Room: [address] [place] [address]: Priscilla Lang MD Copies to: DO Priscilla Daniels MD~ Providers Date of Discharge: 04/30/24 Discharging Provider: Priscilla Lang Primary Care Provider: Sandra Keita Consults: 04/29/24 06:29 Consult to Neurology Routine Comment: Consulting Provider: Lit Clark Reason For Exam: TIA on ASA/DOAC Has Provider Been Notified: Yes Date of Notification: 04/29/24 Time of Notification: 07:35 04/29/24 11:04 Consult to Occupational Therapy Routine Comment: Physician Instructions: Consult to OT for:: Evaluation and Treat Consult to Physical Therapy Routine Comment: Physician Instructions: Consult to PT for:: Evaluation and Treat Discharge Diagnosis (1) Atrial fibrillation: (2) Generalized weakness: (3) Insulin dependent diabetes mellitus: (4) TIA (transient ischemic attack): (5) Diabetes: (6) Hypothyroid: (7) Hypomagnesemia: Final Diagnosis Final Discharge Diagnosis: As listed above as well as others that are not listed Summary Hospital Course Hospital course: Mrs. Gay is a 68-year-old female with multiple cardiovascular risk. Patient came in with altered mental status, weakness, slurred speech. She was admitted with the diagnosis of a TIA. Patient was seen by neurology team and underwent a series of workup and investigation. She had a CAT scan of the brain which did not show any acute intracranial process. Patient was recommended to have MRI of the brain to rule out actual CVA. Unfortunately the patient has mental in her nails and team not to be compatible with MRI unless patient removes her nail cover. Patient was not willing to consider that. Patient requested to be discharged home. Her neurological issues have resolved. Patient was found to have UTI which had contributing to her altered mental status, encephalopathy. In addition the patient had been taking multiple medications that could potentially cause EXECUTIVE CASINO HOST side effect and toxic encephalopathy. Diagnosis is consistent with transient ischemic attack, septic and toxic encephalopathy. Unfortunately MRI could not be done to confirm whether she had stroke or not. Continue to take aspirin and Eliquis for secondary stroke prevention. History of paroxysmal A-fib on Eliquis. Hypertension and diabetes. Patient has multiple complex medical issues as listed above and others that are not listed. All appear to be stable. Patient is feeling great. Complete resolution of her neurological symptoms. Patient was not willing to remove her nail metal cover up to proceed with MRI. Patient is requesting to be dischargedhome. Patient was instructed to consult with her primary care doctor or other providers to simplify her polypharmacy regimen to reduce her risk of EXECUTIVE CASINO HOST side effects or drug?drug interaction. At this time, I do not have any clear or strong clinical justification to extend inpatient hospitalization. Patient however will require close and frequent monitoring as well as additional work-up, investigation and therapeutic intervention that could take place from this point on post discharge. That is to prevent relapse, decompensation, rehospitalization and other medical implications. I instructed patient to ask her primary care doctor to obtain [facility] record entirely to address abnormalities seen on labs and imagingthat I have and have not addressed during this hospitalization, follow-up on pending blood work, imaging and pathology is if available and to follow-up on needed medical care in the outpatient setting. Time Spent with Patient Time spent providing/coordinating discharge services (# min): 40 Discharge Plan Discharge Plan Patient Disposition: Home Additional Instructions: I may not have addressed or treated all of your medical illnesses or the abnormal blood work or imaging studies during this hospitalization. Please ask your primary care provider to obtain [facility] records entirely to follow up on all of the abnormal physical, laboratory, and imaging findings that I have not addressed. Please return back to the emergency room or seek medical attention if your symptoms worsen or return. You are taking 2 medications that could cause you to have side effect such as confusion, hallucination, weakness, slurred speech. Please consult with your primary care doctor and other prescribers to simplify your medication regimen toreduce your risk having side effect or having drug?drug interaction. Discharging you from [facility] does not mean that your medical care ends here and now. You may still need additional monitoring, work up, investigation, and treatment plan to be handled from this point on by out patient providers including your primary care provider and specialists. For any medication question, please contact your retail pharmacist or your primary care provider. Thank you. Instructions: Know your Meds Prescriptions: New cefuroxime axetil 500 mg tablet 500 mg PO BID 7 Days Qty: 14 0RF Continued metformin 500 mg tablet See Rx Instructions .ROUTE .COMPLEX Qty: 180 3RF Dose Instruction: take 1 tablet by mouth twice a day with meals Rx Instructions: take 1 tablet by mouth twice a day with meals folic acid 1 mg tablet 1 mg PO DAILY 90 Days Qty: 90 1RF Eliquis 5 mg tablet 5 mg PO BID Qty: 180 1RF insulin lispro 100 unit/mL insulin pen See Rx Instructions SUBCUT ACHS MDD 20 units/day Qty: 30 3RF Rx Instructions: subcutaneously before meals and at bedtime; 1:50 corrective scale (expect up to 20 units/day) omeprazole 20 mg capsule,delayed release(DR/EC) See Rx Instructions .ROUTE .COMPLEX Qty: 90 3RF Dose Instruction: take 1 capsule by mouth once daily Rx Instructions: take 1 capsule by mouth once daily (DME) FreeStyle Brent 14 Day Sensor Kit See Rx Instructions .ROUTE .MEDSUPPLY Qty: 2 11RF Rx Instructions: As directed Change every 14 days magnesium oxide 400 mg (241.3 mg magnesium) tablet See Rx Instructions .ROUTE .COMPLEX Qty: 180 1RF Dose Instruction: TAKE 1 TABLET BY MOUTH TWICE A DAY Rx Instructions: TAKE 1 TABLET BY MOUTH TWICE A DAY aspirin 81 mg Tablet,Delayed Release (Dr/Ec) 81 mg PO DAILY multivitamin Tablet 1 tab PO DAILY docusate sodium [Stool Softener] 100 mg capsule 100 mg PO DAILY PRN (Reason: constipation) (DME) pen needle, diabetic [Sure-Fine Pen Webster] .Route lidocaine 5 % ointment 1 applic topical DAILY PRN (Reason: pain) memantine 10 mg tablet 10 mg PO BID nortriptyline 25 mg capsule 25 mg PO QHS donepezil 10 mg tablet 20 mg PO DAILY Ozempic 2 mg/dose (8 mg/3 mL) pen injector 2 mg subcut QWEEK Qty: 9 3RF Jardiance 25 mg tablet 25 mg PO DAILY Qty: 90 3RF insulin glargine U-300 conc [Toujeo SoloStar U-300 Insulin] 300 unit/mL (1.5 mL) insulin pen 22 unit SUBCUT DAILY MDD may titrate up to30 units/day Qty: 9 3RF carvedilol 12.5 mg tablet 12.5 mg PO BID cyanocobalamin (vitamin B-12) 1,000 mcg capsule 1,000 mcg PO DAILY pregabalin 300 mg capsule 300 mg PO DAILY Changed simvastatin 20 mg Tablet 40 mg PO DAILY Qty: 30 0RF Discontinued temazepam 30 mg capsule 30 mg PO DAILY 30 Days Qty: 30 0RF cyclobenzaprine 10 mg tablet 10 mg PO DIRECTED PRN (Reason: muscle spasm) Follow Up: [facility] [Provider Group] Sandra Keita DO [Primary Care Provider] - 05/05/24 3:30 pm (Follow-up with your Primary Care Provider, call office to reschedule if needed. ) Exam Physical Exam Vital Signs: Temp Pulse Resp BP Pulse Ox O2 Del Method 97.8 F 64 18 141/83 H 96 Room Air 04/30/24 08:25 04/30/24 08:25 04/30/24 08:25 04/30/24 08:25 04/30/24 08:25 04/30/24 08:35 Diagnostic Studies Completed and Pending Studies Pending studies at discharge: 04/29/24 17:13 Urine Culture Routine Preliminary micro results at discharge 04/29/24 17:13 Urine Culture - Pending Clean Void Midstream Labs on day of discharge: 04/30/24 06:45: POC Glucose 134 04/30/24 05:31: Corrected WBC 7.3, Uncorrected WBC Count 7.3, RBC 4.70, Hgb 14.7, Hct 44.3, MCV 94.4, MCH 31.4, MCHC 33.3, RDW 15.4 H, Plt Count 119 L, MPV 9.5, Neut % (Auto) 63.5, Lymph % (Auto) 24.9, [place] % (Auto) 8.3, Eos % (Auto) 2.9, Baso % (Auto) 0.4, Nucleat RBC Rel Count 0.0, Neut # (Auto) 4.6, Lymph # (Auto) 1.8, [place] # (Auto) 0.6, Eos # (Auto) 0.2, Baso # (Auto) 0.0, PHA Creatinine Clear 82.38, Sodium 140, Potassium 3.8, Chloride 106, Carbon Dioxide 26.9, Anion Gap 10.9, BUN 9, Creatinine 0.80, Est GFR (CKD-EPI) > 60.0, Glucose 130 H, Calcium 9.3, Phosphorus 2.9, Magnesium 1.7 L, Total Bilirubin 0.5, AST 23, ALT 16, Alkaline Phosphatase 85, Total Protein 6.4, Albumin 3.5, Globulin 2.9, Albumin/Globulin Ratio 1.2 04/29/24 20:48: POC Glucose 165 04/29/24 17:13: Urine Opiates Screen Negative, Ur Barbiturates Screen Negative, Ur Phencyclidine Scrn Negative, Ur Amphetamines Screen Negative, U Benzodiazepines Scrn Negative, Urine Cocaine Screen Negative, U Marijuana (THC) Screen Negative 04/29/24 16:12: POC Glucose 188, POC Glucose Comment Glu2: cleaned meter 04/29/24 11:34: POC Glucose 192, POC Glucose Comment Glu2: cleaned meter Documented By: Priscilla Lang MD 04/30/24 1016 Signed By: <Electronically signed by Priscilla Lang MD> 04/30/[address] [place] [address] Work Phone: 1([phone]) 111-940701-02-2025 [place] [address] Discharge Summary Signed Patient: Taye Gay MR#: [id number] : 1955 Acct:[id number] Age/Sex: 68 / F Adm Date: 4 Loc: 3T Room: [address] [place] [address]: Priscilla Lang MD Copies to: DO Priscilla Daniels MD~ Providers Date of Discharge: 04/30/24 Discharging Provider: Priscilla Lang Primary Care Provider: Sandra Keita Consults: 04/29/24 06:29 Consult to Neurology Routine Comment: Consulting Provider: Lit Clark Reason For Exam: TIA on ASA/DOAC Has Provider Been Notified: Yes Date of Notification: 04/29/24 Time of Notification: 07:35 04/29/24 11:04 Consult to Occupational Therapy Routine Comment: Physician Instructions: Consult to OT for:: Evaluation and Treat Consult to Physical Therapy Routine Comment: Physician Instructions: Consult to PT for:: Evaluation and Treat Discharge Diagnosis (1) Atrial fibrillation: (2) Generalized weakness: (3) Insulin dependent diabetes mellitus: (4) TIA (transient ischemic attack): (5) Diabetes: (6) Hypothyroid: (7) Hypomagnesemia: Final Diagnosis Final Discharge Diagnosis: As listed above as well as others that are not listed Summary Hospital Course Hospital course: Mrs. Gay is a 68-year-old female with multiple cardiovascular risk. Patient came in with alteredmental status, weakness, slurred speech. She was admitted with the diagnosis of a TIA. Patient was seen by neurology team and underwent a series of workup and investigation. She had a CAT scan of the brain which did not show any acute intracranial process. Patient was recommended to have MRI of the brain to rule out actual CVA. Unfortunately the patient has mental in her nails and team not to be compatible with MRI unless patient removes her nail cover. Patient was not willing to consider that. Patient requested to be discharged home. Her neurological issues have resolved. Patient was found to have UTI which had contributing to her altered mental status, encephalopathy. In addition the patient had been taking multiple medications that could potentially cause EXECUTIVE CASINO HOST side effect and toxic encephalopathy. Diagnosis is consistent with transient ischemic attack, septic and toxic encephalopathy. Unfortunately MRI could not be done to confirm whether she had stroke or not. Continue to take aspirin and Eliquis for secondary stroke prevention. History of paroxysmal A-fib on Eliquis. Hypertension and diabetes. Patient has multiple complex medical issues as listed above and others that are not listed. All appear to be stable. Patient is feeling great. Complete resolution of her neurological symptoms. Patient was not willing to remove her nail metal cover up to proceed with MRI. Patient is requesting to be dischargedhome. Patient was instructed to consult with her primary care doctor or other providers to simplify her polypharmacy regimen to reduce her risk of EXECUTIVE CASINO HOST side effects or drug?drug interaction.At this time, I do not have any clear or strong clinical justification to extend inpatient hospitalization. Patient however will require close and frequent monitoring as well as additional work- up, investigation and therapeutic intervention that could take place from this point on post discharge. That is to prevent relapse, decompensation, rehospitalization and other medical implications. I instructed patient to ask her primary care doctor to obtain [facility] record entirely to address abnormalities seen on labs and imagingthat I have and have not addressed during this hospitalization, follow-up on pending blood work, imaging and pathology is if available and to follow-up on needed medical care in the outpatient setting. Time Spent with Patient Time spent providing/coordinating discharge services (# min): 40 Discharge Plan Discharge Plan Patient Disposition: Home Additional Instructions: I may not have addressed or treated all of your medical illnesses or the abnormal blood work or imaging studies during this hospitalization. Please ask your primary care provider to obtain [facility] records entirely to follow up on all of the abnormal physical, laboratory, and imaging findings thatI have not addressed. Please return back to the emergency room or seek medical attention if your symptoms worsen or return. You are taking 2 medications that could cause you to have side effect such as confusion, hallucination, weakness, slurred speech. Please consult with your primary care doctor and other prescribers tosimplify your medication regimen toreduce your risk having side effect or having drug?drug interaction. Discharging you from [facility] does not mean that your medical care ends here and now. You may still need additional monitoring, work up, investigation, and treatment plan to be handled from this point on by out patient providers including your primary care provider and specialists. For any medication question, please contact your retail pharmacist or your primary care provider. Thank you. Instructions: Know your Meds Prescriptions: New cefuroxime axetil 500 mg tablet 500 mg PO BID 7 Days Qty: 14 0RF Continued metformin 500 mg tablet See Rx Instructions .ROUTE .COMPLEX Qty: 180 3RF Dose Instruction: take 1 tablet by mouth twice a day with meals Rx Instructions: take 1 tablet by mouth twice a day with meals folic acid 1 mg tablet 1 mg PO DAILY 90 Days Qty: 90 1RF Eliquis 5 mg tablet 5 mg PO BID Qty: 180 1RF insulin lispro 100 unit/mL insulin pen See Rx Instructions SUBCUT ACHS MDD 20 units/day Qty: 30 3RF Rx Instructions: subcutaneously before meals and at bedtime; 1:50 corrective scale (expect up to 20 units/day) omeprazole 20 mg capsule,delayed release(DR/EC) See Rx Instructions .ROUTE .COMPLEX Qty: 90 3RF Dose Instruction: take 1 capsule by mouth once daily Rx Instructions: take 1 capsule by mouth once daily (DME) FreeStyle Brent 14 Day Sensor Kit See Rx Instructions .ROUTE .MEDSUPPLY Qty: 2 11RF Rx Instructions: As directed Change every 14 days magnesium oxide 400 mg (241.3 mg magnesium) tablet See Rx Instructions .ROUTE .COMPLEX Qty: 180 1RF Dose Instruction: TAKE 1 TABLET BY MOUTH TWICE A DAY Rx Instructions: TAKE 1 TABLET BY MOUTH TWICE A DAY aspirin 81 mg Tablet,Delayed Release (Dr/Ec) 81 mg PO DAILY multivitamin Tablet 1 tab PO DAILY docusate sodium [Stool Softener] 100 mg capsule 100 mg PO DAILY PRN (Reason: constipation) (DME) pen needle, diabetic [Sure-Fine Pen Webster] .Route lidocaine 5 % ointment 1 applic topical DAILY PRN (Reason: pain) memantine 10 mg tablet 10 mg PO BID nortriptyline 25 mg capsule 25 mg PO QHS donepezil 10 mg tablet 20 mg PO DAILY Ozempic 2 mg/dose (8 mg/3 mL) pen injector 2 mg subcut QWEEK Qty: 9 3RF Jardiance 25 mg tablet 25 mg PO DAILY Qty: 90 3RF insulin glargine U-300 conc [Toujeo SoloStar U-300 Insulin] 300 unit/mL (1.5 mL) insulin pen 22 unit SUBCUT DAILY MDD may titrate up to30 units/day Qty: 9 3RF carvedilol 12.5 mg tablet 12.5 mg PO BID cyanocobalamin (vitamin B-12) 1,000 mcg capsule 1,000 mcg PO DAILY pregabalin 300 mg capsule 300 mg PO DAILY Changed simvastatin 20 mg Tablet 40 mg PO DAILY Qty: 30 0RF Discontinued temazepam 30 mg capsule 30 mg PO DAILY 30 Days Qty: 30 0RF cyclobenzaprine 10 mg tablet 10 mg PO DIRECTED PRN (Reason: muscle spasm) Follow Up: [facility] [Provider Group] Sandra Keita DO [Primary Care Provider] - 05/05/24 3:30 pm (Follow-up with your Primary Care Provider, call office to reschedule if needed. ) Exam Physical Exam Vital Signs: Temp Pulse Resp BP Pulse Ox O2 Del Method 97.8 F 64 18 141/83 H 96 Room Air 04/30/24 08:25 04/30/24 08:25 04/30/24 08:25 04/30/24 08:25 04/30/24 08:25 04/30/24 08:35 Diagnostic Studies Completed and Pending Studies Pending studies at discharge: 04/29/24 17:13 Urine Culture Routine Preliminary micro results at discharge 04/29/24 17:13 Urine Culture - Pending Clean Void Midstream Labs on day of discharge: 04/30/24 06:45: POC Glucose 134 04/30/24 05:31: Corrected WBC 7.3, Uncorrected WBC Count 7.3, RBC 4.70, Hgb 14.7, Hct 44.3, MCV 94.4, MCH 31.4, MCHC 33.3, RDW 15.4 H, Plt Count 119 L, MPV 9.5, Neut % (Auto) 63.5, Lymph % (Auto) 24.9, [place] % (Auto) 8.3, Eos % (Auto) 2.9, Baso % (Auto) 0.4, Nucleat RBC Rel Count 0.0, Neut # (Auto) 4.6, Lymph # (Auto) 1.8, [place] # (Auto) 0.6, Eos # (Auto) 0.2, Baso # (Auto) 0.0, PHA Creatinine Clear 82.38, Sodium 140, Potassium 3.8, Chloride 106, Carbon Dioxide 26.9, Anion Gap 10.9, BUN 9, Creatinine 0.80, Est GFR (CKD-EPI) > 60.0, Glucose 130 H, Calcium 9.3, Phosphorus 2.9, Magnesium 1.7 L,Total Bilirubin 0.5, AST 23, ALT 16, Alkaline Phosphatase 85, Total Protein 6.4, Albumin 3.5, Globulin 2.9, Albumin/Globulin Ratio 1.2 04/29/24 20:48: POC Glucose 165 04/29/24 17:13: Urine Opiates Screen Negative, Ur Barbiturates Screen Negative, Ur Phencyclidine Scrn Negative, Ur Amphetamines Screen Negative, U Benzodiazepines Scrn Negative, Urine Cocaine Screen Negative, U Marijuana (THC) Screen Negative 04/29/24 16:12: POC Glucose 188, POC Glucose Comment Glu2: cleaned meter 04/29/24 11:34: POC Glucose 192, POC Glucose Comment Glu2: cleaned meter Documented By: Priscilla Lang MD 04/30/24 1016 Signed By: 04/30/24 1028 [facility]01-01-2025 Consult note Author Lit Clark [facility] Note Date/Time April 29, 2024 11 :07am [facility] [address] [place] [address] Neurology Consult Note Signed Patient: Taye Gay MR#: [id number] : 1955 Acct:[id number] Age/Sex: 68 / F Adm Date: 4 Loc: Room: [address] [place] [address] Type: ADM IN Attending Dr: Priscilla Lang MD Copies to: DO Sandra Garrido DO Rafik Massouh, MD~ HPI Consult Date: 04/29/24 High Lead Yarder: Lit Clark DO Reason for consult: Slurred speech and weakness Consult Narrative HPI: I was asked to see this 68-year-old female new patient neurology consultation atthe request of the hospitalist service for concern for generalized weakness and slurred speech. She does have a history of dementia, insulin-dependent diabetes, A-fib and multiple other past medical history. Apparently she had an episode yesterday of a sudden onset of slurred speech and a gait that appeared drunk. Patient slurred speech had resolved by the time she presented to the emergency department. She has had large fluctuations noted in her blood pressure over the course of the last couple days with low blood pressure noted down to 88/64 and high blood pressures noted all the way up to 170/70. She had an NIH stroke scale of [address] and CT angiogram the emergency department were unremarkable. The patient does take Eliquis and aspirin at home. Eliquis is for atrial fibrillation. Patient was noted to have mild hypoxia, mild hypotension and dehydration and was given magnesium as well as saline in the emergency department. No focal deficits were noted by emergency department examination or by primary team examination. No new or acute events overnight. Is awake alert and talkative this morning. She feels that she has returned to baseline. She has no new concerns overnight. Review of Systems Review of Systems All other systems reviewed & are negative unless noted below or in HPI [facility] Medical History BMI 32.0-32.9,adult Abnormal thyroid blood test History of cardioversion History of esophageal stricture Cigarette nicotine dependence GERD (gastroesophageal reflux disease) [...] Father Heart disease History of stroke [facility] Problem: Diagnosed with Stroke Cancer throat heart disease Mother heart attack Heart disease Hypertension Son Diabetes Sister complications from fall/hit head on sink Brother complications from covid Social History Smoking Status: Current every day smoker Tobacco Type: cigarettes Substance Use Type: None Meds Medications and Allergies Allergies Sulfa (Sulfonamide Antibiotics) Allergy (Verified 04/28/24 19:33) Vomiting Home Medications aspirin 81 mg tablet,delayed release 81 mg PO DAILY 02/09/21 [History Confirmed 04/28/24] simvastatin 20 mg tablet 20 mg PO DAILY 02/09/21 [History Confirmed 04/28/24] docusate sodium 100 mg capsule (Stool Softener) 100 mg PO DAILY PRN [id number]/14/24 [History Confirmed 04/28/24] multivitamin 1 tab PO DAILY 06/12/23 [History Confirmed 04/28/24] pen needle, diabetic [Sure-Fine Pen Webster] 06/12/23 [History Confirmed 04/28/24] metformin 500 mg tablet See Rx Instructions .Route .COMPLEX #180 tabs 08/26/23 [Rx Confirmed 04/28/24] folic acid 1 mg tablet 1 mg PO DAILY 90 days #90 tabs 10/16/23 [Rx Confirmed 04/28/24] cyanocobalamin (vitamin B-12) 1,000 mcg capsule 1,000 mcg PO DAILY 11/14/23 [History Confirmed 04/28/24] apixaban 5 mg tablet (Eliquis) 5 mg PO BID #180 tabs 12/03/23 [Rx Confirmed 04/28/24] insulin lispro 100 unit/mL subcutaneous pen See Rx Instructions subcut ACHS #30 mL 12/23/23 [Rx Confirmed 04/28/24] omeprazole 20 mg capsule,delayed release See Rx Instructions .Route .COMPLEX #90caps 01/06/24 [Rx Confirmed 04/28/24] flash glucose sensor (FreeStyle Brent 14 Day Sensor kit) #2 ea 01/10/24 [Rx Confirmed 04/28/24] cyclobenzaprine 10 mg tablet 10 mg PO DIRECTED PRN muscle spasm 01/15/24 [History Confirmed 04/28/24] pregabalin 300 mg capsule 300 mg PO DAILY 01/15/24 [History Confirmed 04/28/24] magnesium oxide 400 mg (241.3 mg magnesium) tablet See Rx Instructions .Route .COMPLEX #180 tabs 01/29/24 [Rx Confirmed 04/28/24] carvedilol 12.5 mg tablet 12.5 mg PO BID 04/14/24 [History Confirmed 04/28/24] temazepam 30 mg capsule 30 mg PO DAILY 30 days #30 caps 04/20/24 [Rx Confirmed 04/28/24] Toujeo SoloStar U-300 Insulin 300 unit/mL (1.5 mL) subcutaneous pen (insulin glargine U-300 conc) 22 unit (0.0733 mL) subcut DAILY #9 mL 04/28/24 [Rx Confirmed 04/28/24] donepezil 10 mg tablet 20 mg PO DAILY 04/28/24 [History Confirmed 04/28/24] empagliflozin 25 mg tablet (Jardiance) 25 mg PO DAILY #90 tabs 04/28/24 [Rx Confirmed 04/28/24] lidocaine 5 % topical ointment 1 applic topical DAILY PRN pain 04/28/24 [History Confirmed 04/28/24] memantine 10 mg tablet 10 mg PO BID 04/28/24 [History Confirmed 04/28/24] nortriptyline 25 mg capsule 25 mg PO QHS 04/28/24 [History Confirmed 04/28/24] semaglutide 2 mg/dose (8 mg/3 mL) subcutaneous pen injector (Ozempic) 2 mg (0.75mL) subcut QWEEK #9 mL 04/28/24 [Rx Confirmed 04/28/24] Exam Physical Exam Vital Signs: Temp Pulse Resp BP Pulse Ox O2 Del Method 97.4 F L 60 18 114/74 92 L Room Air 04/29/24 08:00 04/29/24 08:00 04/29/24 08:00 04/29/24 08:00 04/29/24 08:00 04/29/24 08:00 Narrative: Narrative: GENERAL EXAM: Patient is alert and oriented x3. In general the patient is well-appearing. NEURO EXAM: Cranial nerve II. Vision is intact. Pupils are equal Cranial nerve III, IV and . Extraocular muscles are intact. No nystagmus is appreciated Cranial nerve V and VII. No facial asymmetry is appreciated. Temperature and pinprick is equal bilaterally Cranial nerve VIII hearing is intact Cranial nerve IX and X speech is clear fluent. Palate elevates symmetrically Cranial nerve XI head turn side to side full range of motion. Shoulder shrug isequal bilaterally Cranial nerve XII tongue is midline full range of motion MOTOR EXAM: Strength is 5/5 throughout. No pronator drift was appreciated Muscle tone and bulk are normal SENSORY EXAM: Denies paresthesias CEREBELLAR EXAM: Alternating movements are intact. Finger to nose normal Gait not assessed Results - Neuro Laboratory Findings 04/28/24 19:54 04/29/24 06:10 Diagnostic Findings Imaging/Impressions: ITS Impressions Chest X-Ray 04/28/24 19:42 IMPRESSION: There is mild cardiomegaly with perihilar vascular prominence which may indicatemild volume overload/congestive heart failure. Impression dictated by: Oz Bowling M.D.04/28/2024 9:46 PM Dictation Location: [facility]-[address] 04/28/24 19:44 IMPRESSION: No acute intracranial pathology. No evidence of focal stenosis, aneurysmal dilatation, dissection or occlusion. Impression dictated by: Oz Bowling M.D.04/28/2024 9:44 PM Dictation Location: [facility]--17 Assessment/Plan (1) Atrial fibrillation: Qualifiers: Atrial fibrillation type: paroxysmal Qualified Code(s): I48.0 - Paroxysmal atrial fibrillation (2) Generalized weakness: (3) Insulin dependent diabetes mellitus: Plan It is my impression that the patient suffered an episode of slurred speech, weakness and imbalance. Patient was noted to have large fluctuations in blood pressure as well as mild hypoxia and dehydration. Patient did have CT and CT angiogram which were unremarkable. Patient was admitted for stroke evaluation back in October 2023 and had an unremarkable echocardiogram at that time and did have a hemoglobin A1c noted as well. I suspect that this episode may be due to metabolic disturbance from the hypoxia, blood pressure changes and potentially blood sugar related changes. No focal deficits are noted. Patient was not a tPA or interventional candidate. The complaints of generalized rather than focal weakness in the patient's speechdisturbance consideration is strongly given to a metabolic cause. I cannot fully exclude transient ischemia or infarct. Further imaging is pending. Workup: CT of the brain without contrast: Unremarkable CT angiogram of the head and neck: Unremarkable for occlusion, aneurysm or dissection LDL: 45?patient did have statin medication intensity increased by primary team. Goal should be LDL less than 70 in the setting of concern for history of stroke Hemoglobin A1c: 6.6 in October 2023?can be followed in the outpatient setting by primary care 2D echocardiogram in October 2023: 55 to 60% ejection fraction without mention of mass, vegetation or thrombus MRI of the brain: Pending Plan: At this time, I recommend continuation of aspirin 81 mg p.o. daily and Eliquis at current dosing for atrial fibrillation. The patient's episode may be metabolic in nature and not registered representative necessarily of transient ischemia or of infarct. As such, unless an abnormality is identified on MRI, there would not be failure of the current medications for secondary stroke prevention. Goal of LDL less than 70 PT and OT to assess the patient's complaints of generalized weakness upon presentation If MRI is unremarkable patient can follow in the outpatient setting with neurology. will follow. Documented By: Lit Clark DO [id number] Signed By: <Electronically signed by Lit Clark DO> 04/29/24 110 [facility] Work Phone: 1(922) 860-963701-01-2025 Progress note Author Priscilla Lang [facility] Note Date/Time April 29, 2024 11 :02am [facility] [address] [place] [address] Hospitalist Progress Note Signed Patient: Taye Gay MR#: [id number] : 1955 Acct:[id number] Age/Sex: 68 / F Adm Date: 4 Loc: 3T Room: [address] [place] [address] Type: ADM IN Attending Dr: Priscilla Lang MD Copies to: ~ Date of Service: 04/29/2024 Subjective Subjective Narrative: This patient is a 68-year-old female who presented to the emergency department earlier this evening with concerns of weakness and slurred speech. Episode of slurred speech came on suddenly when she was on the phone with her boyfriend reportedly. Abnormal gait appearing drunk was also reported this afternoon byaccompanying family in the ER endorsed feelings of imbalance. Dysphagia had resolved upon arrival to the ER. Vitals in the ER were generally all stable although notably blood pressure around 10 PM went as high as 170/70 mmHg. This is in context of vitals charted earlier in the day during outpatient visits. 88/64 was exhibited around 10 AM this morning and thus represents a near 70 point swing and systolic blood pressure rise. This low blood pressure was thought to be contributing to some generalized weakness earlier in the day. She underwent a full stroke workup after her NIH score was 0 and she exhibited no focal deficits. CT angiography of the head and neck and noncontrast head CT were all nonacute and finding. Labs revealed a white blood cell count of 10.2, polycythemia H&H 16.0/48.1% withplatelets mildly low at 136. INR 1.3 consistent with use of Eliquis chronically. Complete metabolic panel is generally benign appearing with only notable exceptions hypomagnesemia 1.7, hyperglycemia 231. Urinalysis is notablefor elevated specific gravity 1.038, glucosuria greater than thousand, 2+ occultblood, squamous epithelial cells and presence of WBCs, RBCs and rare yeast. Shehas provided 3 to 24 mg of aspirin x 1 and IV magnesium once, 1 L normal saline and was admitted for further stroke workup. Notably has some low-level hypoxia on room air starting yesterday into this evening as low as 93%. Physical Examination: GENERAL APPEARANCE: Alert, up in bed AAOx3 HEENT: NCAT, MMM NECK: Neck soft w/o masses, no JVD CARDIAC: Normal S1 and S2. No S3, S4 or murmurs. LUNGS: Clear to auscultation bilaterally. no wheeze/rhonchi/rales ABDOMEN: Positive bowel sounds. Soft, nontender. No guarding or signs of an acute abdomen MUSCULOSKELETAL: No joint erythema or tenderness. EXTREMITIES: No clubbing, cyanosis or edema NEUROLOGICAL: No focal deficits SKIN: Skin normal color, texture and turgor with no lesions or eruptions. PSYCHIATRIC: Appropriate mood and affect Assessment and plan: 1. Dysphagia with likely transient ischemic attack 2. Abnormal gait 3. Generalized weakness Consulted neurology given unspecified history of TIA/stroke and known microvascular ischemic disease. Event is despite chronic DOAC and baby aspirin therapy and may warrant further evaluation. ABCD 2 score of 5-6 indicates high risk. Intensified statin ordered 80 mg nightly, received aspirin bolus. Will continueregular daily baby aspirin for now. Will defer any change in antiplatelet to neurology. Notably was evaluated for ambulatory dysfunction and weakness with astroke workup and neuroconsult in October 2023 and was to follow-up with her neurologist Dr. Kincaid at that time. An MRI of the brain was done at that time andunremarkable. Echocardiogram with preserved EF. 4. Polycythemia 5. Thrombocytopenia Patient follows regularly with hematology oncology. These are both chronic and stable findings. Unclear if at this mild severity if her polycythemia would portend any increased thrombotic vascular risk. 6. Insulin-dependent type 2 diabetes mellitus Continue home basal bolus insulin. Additionally home oral hypoglycemics including metformin kidney likely be resumed presuming no complicating in hospital kidney issues 7. Peripheral neuropathy Underwent rheumatologic workup was sent at that time with preliminary BEATRICE 1:320 positive. Extensive reflexive antibody titers were sent and all returned normal. Further extensive lab evaluation was ordered by her neurologist and is available for review including thallium, specialized laboratory evaluation for motor or sensory abnormalities 12/09/23, HIV screening, cryoglobulins, complement levels, heavy metal testing all of which returned benign. Rheumatology also has evaluated the patient has an outpatient with further antibody testing available for review 04/10/2024. Sedating home medications will be held for the time being and brought back on board as needed given her weakness and initial date abnormalities 8. Hypomagnesemia Replete as needed, recheck a.m. labs 9. Chronic kidney disease stage II -at baseline 10. Microscopic hematuria 11. History of dementia, possible Alzheimer's dementia -continue home [id number] mg twice daily and donepezil 20 mg daily 12. Atrial fibrillation - continue Eliquis 5 mg twice daily for anticoagulationand carvedilol 12.5 mg twice daily. EKG in ER shows NSR 13. Hypoxia - no respiratory distress or cardiopulmonary complaints to accompany this. Will monitor telemetry and address as needed Exam Physical Exam Vital Signs: Temp Pulse Resp BP Pulse Ox O2 Del Method 97.4 F L 60 18 114/74 92 L Room Air 04/29/24 08:00 04/29/24 08:00 04/29/24 08:00 04/29/24 08:00 04/29/24 08:00 04/29/24 08:00 Objective Lab Results 04/28/24 19:54 04/29/24 06:10 Microbiology Results Microbiology 04/28/24 20:19 Nasopharyngeal Respiratory Panel (PCR) - Final Meds Allergies and Active Meds Allergies Sulfa (Sulfonamide Antibiotics) Allergy (Verified 04/28/24 19:33) Vomiting Active Meds: Active Medications Generic Name Dose Route Start Last Admin Trade Name Freq PRN Reason Stop Dose Admin Apixaban 5 mg 04/29/24 09:00 04/29/24 08:02 Apixaban 5 Mg Tablet PO 04/29/25 08:59 5 mg BID PARMJIT Administration Aspirin 81 mg 04/29/24 09:00 04/29/24 08:02 Aspirin 81 Mg Tablet. PO 04/29/25 08:59 81 mg DAILY PARMJIT Administration Atorvastatin Calcium 80 mg 04/28/24 22:45 04/28/24 23:58 Atorvastatin 80 Mg Tablet PO 04/28/25 22:44 80 mg QPM PARMJIT Administration Carvedilol 12.5 mg 04/29/24 09:00 04/29/24 08:02 Carvedilol 12.5 Mg Tablet PO 04/29/25 08:59 12.5 mg BID PARMJIT Administration Cyanocobalamin 1,000 mcg 04/29/24 09:00 04/29/24 08:02 Cyanocobalamin 1,000 Mcg Tablet PO 04/29/25 08:59 1,000 mcg DAILY PARMJIT Administration Cyclobenzaprine HCl 10 mg 04/29/24 03:51 Cyclobenzaprine 10 Mg Tablet PO 04/29/25 03:50 HS PRN muscle spasm Dapagliflozin 10 mg 04/29/24 09:00 04/29/24 08:02 Dapagliflozin 10 Mg Tablet PO 04/29/25 08:59 10 mg DAILY PARMJIT Administration Dextrose 0 gm 04/29/24 05:23 Dextrose 50% In Water 25 Gm/50 Ml Syringe IV-PUSH 04/29/25 05:22 PRN PRN Hypoglycemia Docusate Sodium 100 mg 04/29/24 03:51 Docusate 100 Mg Capsule PO 04/29/25 03:50 DAILY PRN constipation Donepezil HCl 20 mg 04/29/24 09:00 04/29/24 08:02 Donepezil 10 Mg Tablet PO 04/29/25 08:59 20 mg DAILY PARMJIT Administration Folic Acid 1 mg 04/29/24 09:00 04/29/24 08:02 Folic Acid 1 Mg Tablet PO 04/29/25 08:59 1 mg DAILY PARMJIT Administration Glucose 0 gm 04/29/24 05:23 Dextrose 40% Gel 15 Gm Tube PO 04/29/25 05:22 PRN PRN Hypoglycemia Insulin Aspart 0 units 04/29/24 08:00 04/29/24 08:33 Insulin Aspart 300 Units/3 Ml SUBCUT 04/29/25 07:59 3 units TID.WM.HS PARMJIT Administration Protocol Insulin Glargine 18 units 04/29/24 09:00 04/29/24 08:33 Insulin Glargine 300 Units/3 Ml Insuln.Pen SUBCUT 04/29/25 08:59 18 units DAILY PARMJIT Administration Lidocaine 1 applic 04/29/24 03:51 Lidocaine 5% Oint 35 Gm Tube TOPICAL 04/29/25 03:50 DAILY PRN pain Memantine 10 mg 04/29/24 09:00 04/29/24 08:02 Memantine 10 Mg Tablet PO 04/29/25 08:59 10 mg BID PARMJIT Administration Multivitamins 1 tab 04/29/24 09:00 04/29/24 08:02 Multivitamin 1 Tab Tablet PO 04/29/25 08:59 1 tab DAILY PARMJIT Administration Pom Ozempic ( 2 mg 04/29/24 09:00 Semaglutide) 2 Mg/ SUBCUT 04/29/25 08:59 Dose (8 Mg/3 Ml) Pen QWEEK PARMJIT Injector) Pantoprazole Sodium 40 mg 04/29/24 09:00 04/29/24 08:02 Pantoprazole 40 Mg Tablet.Dr MINOR 04/29/25 08:59 40 mg DAILY PARMJIT Administration Sodium Chloride 0 ml 04/28/24 19:32 04/28/24 21:22 Sodium Chloride 0.9 % 10 Ml Syringe IV-PUSH 04/28/25 19:31 10 ml PRN PRN Administration Flush A&P - Hospitalist Assessment/Plan (1) TIA (transient ischemic attack): Plan The aforementioned paragraph was documented by my colleague. I saw patient this morning. She is awake. She is able to answer questions. She is able to follow command. She stated that she feels much better. She denies any headache. She denies any chest or abdominal pain. No distress. Chest is clear, heart is regular. Abdomen soft. Symmetrical motor and tone. Normal speech. Transient change in mental status as described on the H&P Patient is already on Eliquis and aspirin to be seen by neurology team Patient is on few medications that could potentially cause encephalopathy. Hold potential offending medications. Requested urine drug screen to exclude toxic encephalopathy. Patient has mild UTI, not expected to cause change in mentation. Requested urine culture History of paroxysmal A-fib on Eliquis. Continue Eliquis Consider repeat echocardiogram if recommended by neurology Diabetes Continue long-acting as well as sliding scale coverage. Titrate accordingly. Hypomagnesemia status post repletion Recheck level in AM. Multiple other medical issues not listed above that would need to be addressed. Could be addressed electively while in house if required and the subsequently postdischarge to be handled by PCP in collaboration with outpatient providers. Documented By: Priscilla Lang MD 04/29/24 1053 Signed By: <Electronically signed by Priscilla Lang MD> 04/29/24 1101 [facility] Work Phone: 1([phone] 516-391201-01-2025 [place] [id number] Neurology Consult Note Signed Patient: Taye Gay MR#: [id number] : 1955 Acct:[id number] Age/Sex: 68 / F Adm Date: 4 Loc: Room: [address] [place] [address] Type: ADM IN Attending Dr: Priscilla Lang MD Copies to: DO Sandra Garrido DO Rafik Massouh, MD~ HPI Consult Date: 04/29/24 High Lead Yarder: Lit Clark DO Reason for consult: Slurred speech and weakness Consult Narrative HPI: I was asked to see this 68-year-old female new patient neurology consultation atthe request of the hospitalist service for concern for generalized weakness and slurred speech. She does have a historyof dementia, insulin-dependent diabetes, A-fib and multiple other past medical history. Apparently she had an episode yesterday of a sudden onset of slurred speech and a gait that appeared drunk. Patient slurred speech had resolved by the time she presented to the emergency department. She has had large fluctuations noted in her blood pressure over the course of the last couple days with low blood pressure noted down to 88/64 and high blood pressures noted all the way up to 170/70. She had an NIH stroke scale of [address] CT angiogram the emergency department were unremarkable. The patient does take Eliquis and aspirin at home. Eliquis is for atrial fibrillation. Patient was noted to have mild hypoxia, mild hypotension and dehydration and was given magnesium as well as saline in the emergency department. No focal deficits were noted by emergency department examination or by primary team examination. No new or acute events overnight. Is awake alert and talkative this morning. She feels that she hasreturned to baseline. She has no new concerns overnight. Review of Systems Review of Systems All other systems reviewed & are negative unless noted below or in HPI [facility] Medical History BMI 32.0-32.9,adult Abnormal thyroid blood test History of cardioversion History of esophageal stricture Cigarette nicotine dependence GERD (gastroesophageal reflux disease) [...] Allergies Allergies Sulfa (Sulfonamide Antibiotics) Allergy (Verified 04/28/24 19:33) Vomiting Home Medications aspirin 81 mg tablet,delayed release 81 mg PO DAILY 02/09/21 [History Confirmed 04/28/24] simvastatin 20 mg tablet 20 mg PO DAILY 02/09/21 [History Confirmed 04/28/24] docusate sodium 100 mg capsule (Stool Softener) 100 mg PO DAILY PRN [id number] [History Confirmed 04/28/24] multivitamin 1 tab PO DAILY 06/12/23 [History Confirmed 04/28/24] pen needle, diabetic [Sure-Fine Pen Webster] 06/12/23 [History Confirmed 04/28/24] metformin 500 mg tablet See Rx Instructions .Route .COMPLEX #180 tabs 08/26/23 [Rx Confirmed 04/28/24] folic acid 1 mg tablet 1 mg PO DAILY 90 days #90 tabs 10/16/23 [Rx Confirmed 04/28/24] cyanocobalamin (vitamin B-12) 1,000 mcg capsule 1,000 mcg PO DAILY 11/14/23 [History Confirmed 04/28/24] apixaban 5 mg tablet (Eliquis) 5 mg PO BID #180 tabs 12/03/23 [Rx Confirmed 04/28/24] insulin lispro 100 unit/mL subcutaneous pen See Rx Instructions subcut ACHS #30 mL 12/23/23 [Rx Confirmed 04/28/24] omeprazole 20 mg capsule,delayed release See Rx Instructions .Route .COMPLEX #90caps 01/06/24 [Rx Confirmed 04/28/24] flash glucose sensor (FreeStyle Brent 14 Day Sensor kit) #2 ea 01/10/24 [Rx Confirmed 04/28/24] cyclobenzaprine 10 mg tablet 10 mg PO DIRECTED PRN muscle spasm 01/15/24 [History Confirmed 04/28/24] pregabalin 300 mg capsule 300 mg PO DAILY 01/15/24 [History Confirmed 04/28/24] magnesium oxide 400 mg (241.3 mg magnesium) tablet See Rx Instructions .Route .COMPLEX #180 tabs 01/29/24 [Rx Confirmed 04/28/24] carvedilol 12.5 mg tablet 12.5 mg PO BID 04/14/24 [History Confirmed 04/28/24] temazepam 30 mg capsule 30 mg PO DAILY 30 days #30 caps 04/20/24 [Rx Confirmed 04/28/24] Toujeo SoloStar U-300 Insulin 300 unit/mL (1.5 mL) subcutaneous pen (insulin glargine U-300 conc) 22 unit (0.0733 mL) subcut DAILY #9 mL 04/28/24 [Rx Confirmed 04/28/24] donepezil 10 mg tablet 20 mg PO DAILY 04/28/24 [History Confirmed 04/28/24] empagliflozin 25 mg tablet (Jardiance) 25 mg PO DAILY #90 tabs 04/28/24 [Rx Confirmed 04/28/24] lidocaine 5 % topical ointment 1 applic topical DAILY PRN pain 04/28/24 [History Confirmed 04/28/24] memantine 10 mg tablet 10 mg PO BID 04/28/24 [History Confirmed 04/28/24] nortriptyline 25 mg capsule 25 mg PO QHS 04/28/24 [History Confirmed 04/28/24] semaglutide 2 mg/dose (8 mg/3 mL) subcutaneous pen injector (Ozempic) 2 mg (0.75mL) subcut QWEEK #9mL 04/28/24 [Rx Confirmed 04/28/24] Exam Physical Exam Vital Signs: Temp Pulse Resp BP Pulse Ox O2 Del Method 97.4 F L 60 18 114/74 92 L Room Air 04/29/24 08:00 04/29/24 08:00 04/29/24 08:00 04/29/24 08:00 04/29/24 08:00 04/29/24 08:00 Narrative: Narrative: GENERAL EXAM: Patient is alert and oriented x3. In general the patient is well-appearing. NEURO EXAM: Cranial nerve II. Vision is intact. Pupils are equal Cranial nerve III, IV and . Extraocular muscles are intact. No nystagmus is appreciated Cranial nerve V and VII. No facial asymmetry is appreciated. Temperature and pinprick is equal bilaterally Cranial nerve VIII hearing is intact Cranial nerve IX and X speech is clear fluent. Palate elevates symmetrically Cranial nerve XI head turn side to side full range of motion. Shoulder shrug isequal bilaterally Cranial nerve XII tongue is midline full range of motion MOTOR EXAM: Strength is 5/5 throughout. No pronator drift was appreciated Muscle tone and bulk are normal SENSORY EXAM: Denies paresthesias CEREBELLAR EXAM: Alternating movements are intact. Finger to nose normal Gait not assessed Results - Neuro Laboratory Findings 04/28/24 19:54 04/29/24 06:10 Diagnostic Findings Imaging/Impressions: ITS Impressions Chest X-Ray 04/28/24 19:42 IMPRESSION: There is mild cardiomegaly with perihilar vascular prominence which may indicatemild volume overload/congestive heart failure. Impression dictated by: Oz Bowling M.D.04/28/2024 9:46 PM Dictation Location: [place] [address] 04/28/24 19:44 IMPRESSION: No acute intracranial pathology. No evidence of focal stenosis, aneurysmal dilatation, dissection or occlusion. Impression dictated by: Oz Bowling M.D.04/28/2024 9:44 PM Dictation Location: [place] [address] Assessment/Plan (1) Atrial fibrillation: Qualifiers: Atrial fibrillation type: paroxysmal Qualified Code(s): I48.0 - Paroxysmal atrial fibrillation (2) Generalized weakness: (3) Insulin dependent diabetes mellitus: Plan It is my impression that the patient suffered an episode of slurred speech, weakness and imbalance.Patient was noted to have large fluctuations in blood pressure as well as mild hypoxia and dehydration. Patient did have CT and CT angiogram which were unremarkable. Patient was admitted for stroke evaluation back in October 2023 and had an unremarkable echocardiogram at that time and did have a hemoglobin A1c noted as well. I suspect that this episode may be due to metabolic disturbance from the hypoxia, blood pressure changes and potentially blood sugar related changes. No focal deficits are noted. Patient was not a tPA or interventional candidate. The complaints of generalized rather than focal weakness in the patient's speechdisturbance consideration is strongly given to a metabolic cause. I cannot fully exclude transient ischemia or infarct.Further imaging is pending. Workup: CT of the brain without contrast: Unremarkable CT angiogram of the head and neck: Unremarkable for occlusion, aneurysm or dissection LDL: 45?patient did have statin medication intensity increased by primary team. Goal should be LDL less than 70 in the setting of concern for history of stroke Hemoglobin A1c: 6.6 in October 2023?can be followed in the outpatient setting by primary care 2D echocardiogram in October 2023: 55 to 60% ejection fraction without mention of mass, vegetation or thrombus MRI of the brain: Pending Plan: At this time, I recommend continuation of aspirin 81 mg p.o. daily and Eliquis at current dosing for atrial fibrillation. The patient's episode may be metabolic in nature and not registered representative necessarily of transient ischemia or of infarct. As such, unless an abnormality is identified on MRI, there would not be failure of the current medications for secondary stroke prevention. Goal of LDL less than 70 PT and OT to assess the patient's complaints of generalized weakness upon presentation If MRI is unremarkable patient can follow in the outpatient setting with neurology. will follow. Documented By: Lit Clark DO [id number] Signed By: 04/29/[address] [place], [place] [id number] [place] [address] Hospitalist Progress Note Signed Patient: Taye Gay MR#: [id number] : 1955 Acct:[id number] Age/Sex: 68 / F Adm Date: 4 Loc: Room: [address] [place] [address] Type: ADM IN Attending Dr: Priscilla Lang MD Copies to: ~ Date of Service: 04/29/2024 Subjective Subjective Narrative: This patient is a 68-year-old female who presented to the emergency department earlier this eveningwith concerns of weakness and slurred speech. Episode of slurred speech came on suddenly when she was on the phone with her boyfriend reportedly. Abnormal gait appearing drunk was also reported this afternoon byaccompanying family in the ER endorsed feelings of imbalance. Dysphagia had resolved upon arrival to the ER. Vitals in the ER were generally all stable although notably blood pressure around 10 PM went as high as 170/70 mmHg. This is in context of vitals charted earlier in the day during outpatient visits. 88/64 was exhibited around 10 AM this morning and thus represents a near 70 point swing and systolicblood pressure rise. This low blood pressure was thought to be contributing to some generalized weakness earlier in the day. She underwent a full stroke workup after her NIH score was 0 and she exhibited no focal deficits. CT angiography of the head and neck and noncontrast head CT were all nonacute and finding. Labs revealed a white blood cell count of 10.2, polycythemia H&H 16.0/48.1% withpl atelets mildly low at 136. INR 1.3 consistent with use of Eliquis chronically. Complete metabolic panel is generally benign appearing with only notable exceptions hypomagnesemia 1.7, hyperglycemia 231. Urinalysis is notablefor elevated specific gravity 1.038, glucosuria greater than thousand, 2+ occ ultblood, squamous epithelial cells and presence of WBCs, RBCs and rare yeast. Evyhalink provided 3 to24 mg of aspirin x 1 and IV magnesium once, 1 L normal saline and was admitted for further stroke workup. Notably has some low-level hypoxia on room air starting yesterday into this evening as low as93%. Physical Examination: GENERAL APPEARANCE: Alert, up in bed AAOx3 HEENT: NCAT, MMM NECK: Neck soft w/o masses, no JVD CARDIAC: Normal S1 and S2. No S3, S4 or murmurs. LUNGS: Clear to auscultation bilaterally. no wheeze/rhonchi/rales ABDOMEN: Positive bowel sounds. Soft, nontender. No guarding or signs of an acute abdomen MUSCULOSKELETAL: No joint erythema or tenderness. EXTREMITIES: No clubbing, cyanosis or edema NEUROLOGICAL: No focal deficits SKIN: Skin normal color, texture and turgor with no lesions or eruptions. PSYCHIATRIC: Appropriate mood and affect Assessment and plan: 1. Dysphagia with likely transient ischemic attack 2. Abnormal gait 3. Generalized weakness Consulted neurology given unspecified history of TIA/stroke and known microvascular ischemic disease. Event is despite chronic DOAC and baby aspirin therapy and may warrant further evaluation. ABCD 2score of 5-6 indicates high risk. Intensified statin ordered 80 mg nightly, received aspirin bolus. Will continueregular daily baby aspirin for now. Will defer any change in antiplatelet to neurology. Notably was evaluated for ambulatory dysfunction and weakness with astroke workup and neuroconsult in October 2023 and was to follow-up with her neurologist Dr. Kincaid at that time. An MRI of the brain was done at that time andunremarkable. Echocardiogram with preserved EF. 4. Polycythemia 5. Thrombocytopenia Patient follows regularly with hematology oncology. These are both chronic and stable findings. Unclear if at this mild severity if her polycythemia would portend any increased thrombotic vascular risk. 6. Insulin-dependent type 2 diabetes mellitus Continue home basal bolus insulin. Additionally home oral hypoglycemics including metformin kidney likely be resumed presuming no complicating in hospital kidney issues 7. Peripheral neuropathy Underwent rheumatologic workup was sent at that time with preliminary BEATRICE 1:320 positive. Extensivereflexive antibody titers were sent and all returned normal. Further extensive lab evaluation was ordered by her neurologist and is available for review including thallium, specialized laboratory evaluation for motor or sensory abnormalities 12/09/23, HIV screening, cryoglobulins, complement levels, heavy metal testing all of which returned benign. Rheumatology also has evaluated the patient has an outpatient with further antibody testing available for review 04/10/2024. Sedating home medications will be held for the time being and brought back on board as needed given her weakness and initialdate abnormalities 8. Hypomagnesemia Replete as needed, recheck a.m. labs 9. Chronic kidney disease stage II -at baseline 10. Microscopic hematuria 11. History of dementia, possible Alzheimer's dementia -continue home [id number] mg twice daily and donepezil 20 mg daily 12. Atrial fibrillation - continue Eliquis 5 mg twice daily for anticoagulationand carvedilol 12.5 mg twice daily. EKG in ER shows NSR 13. Hypoxia - no respiratory distress or cardiopulmonary complaints to accompany this. Will monitortelemetry and address as needed Exam Physical Exam Vital Signs: Temp Pulse Resp BP Pulse Ox O2 Del Method 97.4 F L 60 18 114/74 92 L Room Air 04/29/24 08:00 04/29/24 08:00 04/29/24 08:00 04/29/24 08:00 04/29/24 08:00 04/29/24 08:00 Objective Lab Results 04/28/24 19:54 04/29/24 06:10 Microbiology Results Microbiology 04/28/24 20:19 Nasopharyngeal Respiratory Panel (PCR) - Final Meds Allergies and Active Meds Allergies Sulfa (Sulfonamide Antibiotics) Allergy (Verified 04/28/24 19:33) Vomiting Active Meds: Active Medications Generic Name Dose Route Start Last Admin Trade Name Sarkis PRN Reason Stop Dose Admin Apixaban 5 mg 04/29/24 09:00 04/29/24 08:02 Apixaban 5 Mg Tablet PO 04/29/25 08:59 5 mg BID PARMJIT Administration Aspirin 81 mg 04/29/24 09:00 04/29/24 08:02 Aspirin 81 Mg Tablet.Dr PO 04/29/25 08:59 81 mg DAILY PARMJIT Administration Atorvastatin Calcium 80 mg 04/28/24 22:45 04/28/24 23:58 Atorvastatin 80 Mg Tablet PO 04/28/25 22:44 80 mg QPM PARMJIT Administration Carvedilol 12.5 mg 04/29/24 09:00 04/29/24 08:02 Carvedilol 12.5 Mg Tablet PO 04/29/25 08:59 12.5 mg BID PARMJIT Administration Cyanocobalamin 1,000 mcg 04/29/24 09:00 04/29/24 08:02 Cyanocobalamin 1,000 Mcg Tablet PO 04/29/25 08:59 1,000 mcg DAILY PARMJIT Administration Cyclobenzaprine HCl 10 mg 04/29/24 03:51 Cyclobenzaprine 10 Mg Tablet PO 04/29/25 03:50 HS PRN muscle spasm Dapagliflozin 10 mg 04/29/24 09:00 04/29/24 08:02 Dapagliflozin 10 Mg Tablet PO 04/29/25 08:59 10 mg DAILY PARMJIT Administration Dextrose 0 gm 04/29/24 05:23 Dextrose 50% In Water 25 Gm/50 Ml Syringe IV-PUSH 04/29/25 05:22 PRN PRN Hypoglycemia Docusate Sodium 100 mg 04/29/24 03:51 Docusate 100 Mg Capsule PO 04/29/25 03:50 DAILY PRN constipation Donepezil HCl 20 mg 04/29/24 09:00 04/29/24 08:02 Donepezil 10 Mg Tablet PO 04/29/25 08:59 20 mg DAILY PARMJIT Administration Folic Acid 1 mg 04/29/24 09:00 04/29/24 08:02 Folic Acid 1 Mg Tablet PO 04/29/25 08:59 1 mg DAILY PARMJIT Administration Glucose 0 gm 04/29/24 05:23 Dextrose 40% Gel 15 Gm Tube PO 04/29/25 05:22 PRN PRN Hypoglycemia Insulin Aspart 0 units 04/29/24 08:00 04/29/24 08:33 Insulin Aspart 300 Units/3 Ml SUBCUT 04/29/25 07:59 3 units TID.WM.HS PARMJIT Administration Protocol Insulin Glargine 18 units 04/29/24 09:00 04/29/24 08:33 Insulin Glargine 300 Units/3 Ml Insuln.Pen SUBCUT 04/29/25 08:59 18 units DAILY PARMJIT Administration Lidocaine 1 applic 04/29/24 03:51 Lidocaine 5% Oint 35 Gm Tube TOPICAL 04/29/25 03:50 DAILY PRN pain Memantine 10 mg 04/29/24 09:00 04/29/24 08:02 Memantine 10 Mg Tablet PO 04/29/25 08:59 10 mg BID PARMJIT Administration Multivitamins 1 tab 04/29/24 09:00 04/29/24 08:02 Multivitamin 1 Tab Tablet PO 04/29/25 08:59 1 tab DAILY PARMJIT Administration Pom Ozempic ( 2 mg 04/29/24 09:00 Semaglutide) 2 Mg/ SUBCUT 04/29/25 08:59 Dose (8 Mg/3 Ml) Pen QWEEK PARMJIT Injector) Pantoprazole Sodium 40 mg 04/29/24 09:00 04/29/24 08:02 Pantoprazole 40 Mg Tablet. PO 04/29/25 08:59 40 mg DAILY PARMJIT Administration Sodium Chloride 0 ml 04/28/24 19:32 04/28/24 21:22 Sodium Chloride 0.9 % 10 Ml Syringe IV-PUSH 04/28/25 19:31 10 ml PRN PRN Administration Flush A&P - Hospitalist Assessment/Plan (1) TIA (transient ischemic attack): Plan The aforementioned paragraph was documented by my colleague. I saw patient this morning. She is awake. She is able to answer questions. She is able to follow command. She stated that she feels much better. She denies any headache. She denies any chest or abdominal pain. No distress. Chest is clear, heart is regular. Abdomen soft. Symmetrical motor and tone. Normal speech. Transient change in mental status as described on the H&P Patient is already on Eliquis and aspirin to be seen by neurology team Patient is on few medications that could potentially cause encephalopathy. Hold potential offending medications. Requested urine drug screen to exclude toxic encephalopathy. Patient has mild UTI, not expected to cause change in mentation. Requested urine culture History of paroxysmal A-fib on Eliquis. Continue Eliquis Consider repeat echocardiogram if recommended by neurology Diabetes Continue long-acting as well as sliding scale coverage. Titrate accordingly. Hypomagnesemia status post repletion Recheck level in AM. Multiple other medical issues not listed above that would need to be addressed. Could be addressed electively while in house if required and the subsequently postdischarge to be handled by PCP in collaboration with outpatient providers. Documented By: Priscilla Lang MD 04/29/24 1059 Signed By: 04/29/24 1102 [facility]01-01-2025 History and physical note Author Chico Hearn [facility] Note Date/Time April 29, 2024 6: 39am [facility] [address] [place] [address] Hospitalist H&P Signed Patient: Taye Gay MR#: [id number] : 1955 Acct:[id number] Age/Sex: 68 / F Adm Date: 4 Loc: Room: [address] [place] [address] Type: ADM IN Attending Dr: Chico Hearn DO Copies to: DO Chioc Daniels, ~ HPI DATE OF EXAMINATION: 04/29/24 CHIEF COMPLAINT: dyphasia HISTORY OF PRESENT ILLNESS: This patient is a 68-year-old female who presented to the emergency department earlier this evening with concerns of weakness and slurred speech. Episode of slurred speech came on suddenly when she was on the phone with her boyfriend reportedly. Abnormal gait appearing drunk was also reported this afternoon byaccompanying family in the ER endorsed feelings of imbalance. Dysphagia had resolved upon arrival to the ER. Vitals in the ER were generally all stable although notably blood pressure around 10 PM went as high as 170/70 mmHg. This is in context of vitals charted earlier in the day during outpatient visits. 88/64 was exhibited around 10 AM this morning and thus represents a near 70 point swing and systolic blood pressure rise. This low blood pressure was thought to be contributing to some generalized weakness earlier in the day. She underwent a full stroke workup after her NIH score was 0 and she exhibited no focal deficits. CT angiography of the head and neck and noncontrast head CT were all nonacute and finding. Labs revealed a white blood cell count of 10.2, polycythemia H&H 16.0/48.1% withplatelets mildly low at 136. INR 1.3 consistent with use of Eliquis chronically. Complete metabolic panel is generally benign appearing with only notable exceptions hypomagnesemia 1.7, hyperglycemia 231. Urinalysis is notablefor elevated specific gravity 1.038, glucosuria greater than thousand, 2+ occultblood, squamous epithelial cells and presence of WBCs, RBCs and rare yeast. Evyhalink provided 3 to 24 mg of aspirin x 1 and IV magnesium once, 1 L normal saline and was admitted for further stroke workup. Notably has some low-level hypoxia on room air starting yesterday into this evening as low as 93%. Physical Examination: GENERAL APPEARANCE: Alert, up in bed AAOx3 HEENT: NCAT, MMM NECK: Neck soft w/o masses, no JVD CARDIAC: Normal S1 and S2. No S3, S4 or murmurs. LUNGS: Clear to auscultation bilaterally. no wheeze/rhonchi/rales ABDOMEN: Positive bowel sounds. Soft, nontender. No guarding or signs of an acute abdomen MUSCULOSKELETAL: No joint erythema or tenderness. EXTREMITIES: No clubbing, cyanosis or edema NEUROLOGICAL: No focal deficits SKIN: Skin normal color, texture and turgor with no lesions or eruptions. PSYCHIATRIC: Appropriate mood and affect Assessment and plan: 1. Dysphagia with likely transient ischemic attack 2. Abnormal gait 3. Generalized weakness Consulted neurology given unspecified history of TIA/stroke and known microvascular ischemic disease. Event is despite chronic DOAC and baby aspirin therapy and may warrant further evaluation. ABCD 2 score of 5-6 indicates high risk. Intensified statin ordered 80 mg nightly, received aspirin bolus. Will continueregular daily baby aspirin for now. Will defer any change in antiplatelet to neurology. Notably was evaluated for ambulatory dysfunction and weakness with astroke workup and neuroconsult in October 2023 and was to follow-up with her neurologist Dr. Kincaid at that time. An MRI of the brain was done at that time andunremarkable. Echocardiogram with preserved EF. 4. Polycythemia 5. Thrombocytopenia Patient follows regularly with hematology oncology. These are both chronic and stable findings. Unclear if at this mild severity if her polycythemia would portend any increased thrombotic vascular risk. 6. Insulin-dependent type 2 diabetes mellitus Continue home basal bolus insulin. Additionally home oral hypoglycemics including metformin kidney likely be resumed presuming no complicating in hospital kidney issues 7. Peripheral neuropathy Underwent rheumatologic workup was sent at that time with preliminary BEATRICE 1:320 positive. Extensive reflexive antibody titers were sent and all returned normal. Further extensive lab evaluation was ordered by her neurologist and is available for review including thallium, specialized laboratory evaluation for motor or sensory abnormalities 12/09/23, HIV screening, cryoglobulins, complement levels, heavy metal testing all of which returned benign. Rheumatology also has evaluated the patient has an outpatient with further antibody testing available for review 04/10/2024. Sedating home medications will be held for thetime being and brought back on board as needed given her weakness and initial date abnormalities 8. Hypomagnesemia Replete as needed, recheck a.m. labs 9. Chronic kidney disease stage II -at baseline 10. Microscopic hematuria 11. History of dementia, possible Alzheimer's dementia -continue home [id number] mg twice daily and donepezil 20 mg daily 12. Atrial fibrillation - continue Eliquis 5 mg twice daily for anticoagulationand carvedilol 12.5 mg twice daily. EKG in ER shows NSR 13. Hypoxia - no respiratory distress or cardiopulmonary complaints to accompany this. Will monitor telemetry and address as needed [facility] Medical History BMI 32.0-32.9,adult Abnormal thyroid blood test History of cardioversion History of esophageal stricture Cigarette nicotine dependence GERD (gastroesophageal reflux disease) [...] Allergies Allergies Sulfa (Sulfonamide Antibiotics) Allergy (Verified 04/28/24 19:33) Vomiting Home Medications aspirin 81 mg tablet,delayed release 81 mg PO DAILY 02/09/21 [History Confirmed 04/28/24] simvastatin 20 mg tablet 20 mg PO DAILY 02/09/21 [History Confirmed 04/28/24] docusate sodium 100 mg capsule (Stool Softener) 100 mg PO DAILY PRN [id number]/14/24 [History Confirmed 04/28/24] multivitamin 1 tab PO DAILY 06/12/23 [History Confirmed 04/28/24] pen needle, diabetic [Sure-Fine Pen [place]] 06/12/23 [History Confirmed 04/28/24] metformin 500 mg tablet See Rx Instructions .Route .COMPLEX #180 tabs 08/26/23 [Rx Confirmed 04/28/24] folic acid 1 mg tablet 1 mg PO DAILY 90 days #90 tabs 10/16/23 [Rx Confirmed 04/28/24] cyanocobalamin (vitamin B-12) 1,000 mcg capsule 1,000 mcg PO DAILY 11/14/23 [History Confirmed 04/28/24] apixaban 5 mg tablet (Eliquis) 5 mg PO BID #180 tabs 12/03/23 [Rx Confirmed 04/28/24] insulin lispro 100 unit/mL subcutaneous pen See Rx Instructions subcut ACHS #30 mL 12/23/23 [Rx Confirmed 04/28/24] omeprazole 20 mg capsule,delayed release See Rx Instructions .Route .COMPLEX #90caps 01/06/24 [Rx Confirmed 04/28/24] flash glucose sensor (FreeStyle Brent 14 Day Sensor kit) #2 ea 01/10/24 [Rx Confirmed 04/28/24] cyclobenzaprine 10 mg tablet 10 mg PO DIRECTED PRN muscle spasm 01/15/24 [History Confirmed 04/28/24] pregabalin 300 mg capsule 300 mg PO DAILY 01/15/24 [History Confirmed 04/28/24] magnesium oxide 400 mg (241.3 mg magnesium) tablet See Rx Instructions .Route .COMPLEX #180 tabs 01/29/24 [Rx Confirmed 04/28/24] carvedilol 12.5 mg tablet 12.5 mg PO BID 04/14/24 [History Confirmed 04/28/24] temazepam 30 mg capsule 30 mg PO DAILY 30 days #30 caps 04/20/24 [Rx Confirmed 04/28/24] Toujeo SoloStar U-300 Insulin 300 unit/mL (1.5 mL) subcutaneous pen (insulin glargine U-300 conc) 22 unit (0.0733 mL) subcut DAILY #9 mL 04/28/24 [Rx Confirmed 04/28/24] donepezil 10 mg tablet 20 mg PO DAILY 04/28/24 [History Confirmed 04/28/24] empagliflozin 25 mg tablet (Jardiance) 25 mg PO DAILY #90 tabs 04/28/24 [Rx Confirmed 04/28/24] lidocaine 5 % topical ointment 1 applic topical DAILY PRN pain 04/28/24 [History Confirmed 04/28/24] memantine 10 mg tablet 10 mg PO BID 04/28/24 [History Confirmed 04/28/24] nortriptyline 25 mg capsule 25 mg PO QHS 04/28/24 [History Confirmed 04/28/24] semaglutide 2 mg/dose (8 mg/3 mL) subcutaneous pen injector (Ozempic) 2 mg (0.75mL) subcut QWEEK #9 mL 04/28/24 [Rx Confirmed 04/28/24] Exam Physical Exam Vital Signs: Temp Pulse Resp BP Pulse Ox O2 Del Method 98.1 F 77 18 160/70 H 96 Room Air 04/28/24 19:39 04/28/24 22:03 04/28/24 22:03 04/28/24 22:03 04/28/24 22:03 04/28/24 22:03 Results - Hospitalist H&P Lab Results Labs: Laboratory Last Values Corrected WBC 10.2 X10E3/uL (3.8-11.6) 04/28/24 19:54 Uncorrected WBC Count 10.9 x10E3/uL (3.8-11.6) 04/28/24 19:54 RBC 5.06 x10E6/uL (3.60-5.00) H 04/28/24 19:54 Hgb 16.0 g/dL (11.8-15.4) H 04/28/24 19:54 Hct 48.1 % (34.0-46.4) H 04/28/24 19:54 MCV 95.1 fl (80-100) 04/28/24 19:54 MCH 31.7 pg (24.7-34.3) 04/28/24 19:54 MCHC 33.3 g/dL (32.0-35.0) 04/28/24 19:54 RDW 15.4 % (11.9-15.3) H 04/28/24 19:54 Plt Count 136 x10E3/uL (150-450) L 04/28/24 19:54 MPV 9.9 fl (6.3-10.7) 04/28/24 19:54 Neut % (Auto) 64.0 % (.) 04/28/24 19:54 Lymph % (Auto) 24.6 % (.) 04/28/24 19:54 [place] % (Auto) 7.6 % (.) 04/28/24 19:54 Eos % (Auto) 2.7 % (.) 04/28/24 19:54 Baso % (Auto) 1.1 % (.) 04/28/24 19:54 Nucleat RBC Rel Count 0.2 /100 WBC (0-0.5) 04/28/24 19:54 Neut # (Auto) 6.5 x10E3/uL (1.8-7.7) 04/28/24 19:54 Lymph # (Auto) 2.5 x10E3/uL (1.00-4.8) 04/28/24 19:54 [place] # (Auto) 0.8 x10E3/uL (0.0-0.8) 04/28/24 19:54 Eos # (Auto) 0.3 x10E3/uL (0.0-0.45) 04/28/24 19:54 Baso # (Auto) 0.1 x10E3/uL (0.0-0.2) 04/28/24 19:54 Monocyte Dist Width 20.25 % (0.00-20.00) H 04/28/24 19:54 Platelet Estimate Decreased (Normal) 04/28/24 19:54 Plt Morphology Comment Normal (Normal) 04/28/24 19:54 RBC Morphology N/A 04/28/24 19:54 Polychromasia Slight 04/28/24 19:54 Anisocytosis Slight 04/28/24 19:54 PT 15.1 Seconds (9.0-12.9) H 04/28/24 19:54 INR 1.3 04/28/24 19:54 APTT 30.0 Seconds (25.1-36.5) 04/28/24 19:54 PHA Creatinine Clear 77.21 04/28/24 19:54 Sodium 137 mmol/L (136-145) 04/28/24 19:54 Potassium 3.9 mmol/L (3.5-5.1) 04/28/24 19:54 Chloride 104 mmol/L (98-107) 04/28/24 19:54 Carbon Dioxide 24.2 mmol/L (21.0-31.0) 04/28/24 19:54 Anion Gap 12.7 mEq/L (6.0-15.0) 04/28/24 19:54 BUN 11 mg/dL (7-25) 04/28/24 19:54 Creatinine 0.85 mg/dL (0.60-1.20) 04/28/24 19:54 Est GFR (CKD-EPI) > 60.0 mL/Min 04/28/24 19:54 Glucose 231 mg/dL (70-100) H 04/28/24 19:54 Calcium 9.7 mg/dL (8.6-10.3) 04/28/24 19:54 Magnesium 1.7 mg/dL (1.9-2.7) L 04/28/24 19:54 Total Bilirubin 0.3 mg/dl (0.3-1.0) 04/28/24 19:54 AST 25 U/L (13-39) 04/28/24 19:54 ALT 20 U/L (7-52) 04/28/24 19:54 Alkaline Phosphatase 86 U/L (34-104) 04/28/24 19:54 Troponin I High Sens 5.1 pg/mL (0.0-15.0) 04/28/24 19:54 B-Natriuretic Peptide 25.0 pg/mL (5-100) 04/28/24 19:54 Total Protein 6.8 gm/dL (6.4-8.9) 04/28/24 19:54 Albumin 3.7 gm/dL (3.5-5.7) 04/28/24 19:54 Globulin 3.1 gm/dL 04/28/24 19:54 Albumin/Globulin Ratio 1.2 04/28/24 19:54 Urine Color Light-yellow (Yellow) 04/28/24 22:02 Urine Appearance Clear (Clear) 04/28/24 22:02 Urine pH 5.5 (5.0-9.0) 04/28/24 22:02 Ur Specific [place] 1.038 (1.001-1.030) H 04/28/24 22:02 Urine Protein Negative mg/dL (Negative) 04/28/24 22:02 Urine Glucose (UA) >=1000 mg/dL (Normal) H 04/28/24 22:02 Urine Ketones Negative (Negative) 04/28/24 22:02 Urine Occult Blood 2+ (Negative) H 04/28/24 22:02 Urine Nitrite Negative (Negative) 04/28/24 22:02 Urine Bilirubin Negative (Negative) 04/28/24 22:02 Urine Urobilinogen Normal mg/dL (Normal) 04/28/24 22:02 Ur Leukocyte Esterase Negative (Negative) 04/28/24 22:02 Urine RBC 10-19 /HPF (0-4) H 04/28/24 22:02 Urine WBC 5-9 /HPF (0-4) H 04/28/24 22:02 Ur Squamous Epith Cells 3-4 /HPF (0-2) H 04/28/24 22:02 Urine Bacteria Rare /HPF (None Seen) 04/28/24 22:02 Hyaline Casts 0-8 /LPF (0-8) 04/28/24 22:02 Urine Yeast (Budding) Rare /HPF (None Seen) H 04/28/24 22:02 COVID-19 Clin Com Not detected (Not Detecte) 04/28/24 20:19 Microbiology Results Micro: Microbiology - Results from entire visit 04/28/24 20:19 Nasopharyngeal Respiratory Panel (PCR) - Final Assessment & Plan Assessment/Plan (1) TIA (transient ischemic attack): Plan . IP vs OBS Justification Based on differential dx, clinical care plan, and risk of adverse events, if untreated, in my clinical judgement this patient requires an acute care setting as: INPATIENT because of an expectation of an over 2 midnight stay. Estimated length of stay (# of days): 3 Documented By: Chico Hearn DO 04/28/24 22 57 Signed By: <Electronically signed by Chico Hearn DO> 04/29/24 0639 [facility] Work Phone: 1(584) 808-582801-01-2025 [place] [address] Hospitalist H&P Signed Patient: Taye Gay MR#: [id number] : 1955 Acct:[id number] Age/Sex: 68 / F Adm Date: 4 Loc: Room: [address] [place] [address] Type: ADM IN Attending Dr: Chico Hearn DO Copies to: DO Chico Daniels DO~ HPI DATE OF EXAMINATION: 04/29/24 CHIEF COMPLAINT: dyphasia HISTORY OF PRESENT ILLNESS: This patient is a 68-year-old female who presented to the emergency department earlier this eveningwith concerns of weakness and slurred speech. Episode of slurred speech came on suddenly when she was on the phone with her boyfriend reportedly. Abnormal gait appearing drunk was also reported this afternoon byaccompanying family in the ER endorsed feelings of imbalance. Dysphagia had resolved upon arrival to the ER. Vitals in the ER were generally all stable although notably blood pressure around 10 PM went as high as 170/70 mmHg. This is in context of vitals charted earlier in the day during outpatient visits. 88/64 was exhibited around 10 AM this morning and thus represents a near 70 point swing and systolicblood pressure rise. This low blood pressure was thought to be contributing to some generalized weakness earlier in the day. She underwent a full stroke workup after her NIH score was 0 and she exhibited no focal deficits. CT angiography of the head and neck and noncontrast head CT were all nonacute and finding. Labs revealed a white blood cell count of 10.2, polycythemia H&H 16.0/48.1% withpl atelets mildly low at 136. INR 1.3 consistent with use of Eliquis chronically. Complete metabolic panel is generally benign appearing with only notable exceptions hypomagnesemia 1.7, hyperglycemia 231. Urinalysis is notablefor elevated specific gravity 1.038, glucosuria greater than thousand, 2+ occ ultblood, squamous epithelial cells and presence of WBCs, RBCs and rare yeast. Evyhas provided 3 to24 mg of aspirin x 1 and IV magnesium once, 1 L normal saline and was admitted for further stroke workup. Notably has some low-level hypoxia on room air starting yesterday into this evening as low as93%. Physical Examination: GENERAL APPEARANCE: Alert, up in bed AAOx3 HEENT: NCAT, MMM NECK: Neck soft w/o masses, no JVD CARDIAC: Normal S1 and S2. No S3, S4 or murmurs. LUNGS: Clear to auscultation bilaterally. no wheeze/rhonchi/rales ABDOMEN: Positive bowel sounds. Soft, nontender. No guarding or signs of an acute abdomen MUSCULOSKELETAL: No joint erythema or tenderness. EXTREMITIES: No clubbing, cyanosis or edema NEUROLOGICAL: No focal deficits SKIN: Skin normal color, texture and turgor with no lesions or eruptions. PSYCHIATRIC: Appropriate mood and affect Assessment and plan: 1. Dysphagia with likely transient ischemic attack 2. Abnormal gait 3. Generalized weakness Consulted neurology given unspecified history of TIA/stroke and known microvascular ischemic disease. Event is despite chronic DOAC and baby aspirin therapy and may warrant further evaluation. ABCD 2score of 5-6 indicates high risk. Intensified statin ordered 80 mg nightly, received aspirin bolus. Will continueregular daily baby aspirin for now. Will defer any change in antiplatelet to neurology. Notably was evaluated for ambulatory dysfunction and weakness with astroke workup and neuroconsult in October 2023 and was to follow-up with her neurologist Dr. Kincaid at that time. An MRI of the brain was done at that time andunremarkable. Echocardiogram with preserved EF. 4. Polycythemia 5. Thrombocytopenia Patient follows regularly with hematology oncology. These are both chronic and stable findings. Unclear if at this mild severity if her polycythemia would portend any increased thrombotic vascular risk. 6. Insulin-dependent type 2 diabetes mellitus Continue home basal bolus insulin. Additionally home oral hypoglycemics including metformin kidney likely be resumed presuming no complicating in hospital kidney issues 7. Peripheral neuropathy Underwent rheumatologic workup was sent at that time with preliminary BEATRICE 1:320 positive. Extensivereflexive antibody titers were sent and all returned normal. Further extensive lab evaluation was ordered by her neurologist and is available for review including thallium, specialized laboratory evaluation for motor or sensory abnormalities 12/09/23, HIV screening, cryoglobulins, complement levels, heavy metal testing all of which returned benign. Rheumatology also has evaluated the patient has an outpatient with further antibody testing available for review 04/10/2024. Sedating home medications will be held for thetime being and brought back on board as needed given her weakness and initial date abnormalities 8. Hypomagnesemia Replete as needed, recheck a.m. labs 9. Chronic kidney disease stage II -at baseline 10. Microscopic hematuria 11. History of dementia, possible Alzheimer's dementia -continue home [id number] mg twice daily and donepezil 20 mg daily 12. Atrial fibrillation - continue Eliquis 5 mg twice daily for anticoagulationand carvedilol 12.5 mg twice daily. EKG in ER shows NSR 13. Hypoxia - no respiratory distress or cardiopulmonary complaints to accompany this. Will monitortelemetry and address as needed [facility] Medical History BMI 32.0-32.9,adult Abnormal thyroid blood test History of cardioversion History of esophageal stricture Cigarette nicotine dependence GERD (gastroesophageal reflux disease) [...] Allergies Allergies Sulfa (Sulfonamide Antibiotics) Allergy (Verified 04/28/24 19:33) Vomiting Home Medications aspirin 81 mg tablet,delayed release 81 mg PO DAILY 02/09/21 [History Confirmed 04/28/24] simvastatin 20 mg tablet 20 mg PO DAILY 02/09/21 [History Confirmed 04/28/24] docusate sodium 100 mg capsule (Stool Softener) 100 mg PO DAILY PRN fwkgswmretzs50/14/24 [History Confirmed 04/28/24] multivitamin 1 tab PO DAILY 06/12/23 [History Confirmed 04/28/24] pen needle, diabetic [Sure-Fine Pen [place]] 06/12/23 [History Confirmed 04/28/24] metformin 500 mg tablet See Rx Instructions .Route .COMPLEX #180 tabs 08/26/23 [Rx Confirmed 04/28/24] folic acid 1 mg tablet 1 mg PO DAILY 90 days #90 tabs 10/16/23 [Rx Confirmed 04/28/24] cyanocobalamin (vitamin B-12) 1,000 mcg capsule 1,000 mcg PO DAILY 11/14/23 [History Confirmed 04/28/24] apixaban 5 mg tablet (Eliquis) 5 mg PO BID #180 tabs 12/03/23 [Rx Confirmed 04/28/24] insulin lispro 100 unit/mL subcutaneous pen See Rx Instructions subcut ACHS #30 mL 12/23/23 [Rx Confirmed 04/28/24] omeprazole 20 mg capsule,delayed release See Rx Instructions .Route .COMPLEX #90caps 01/06/24 [Rx Confirmed 04/28/24] flash glucose sensor (FreeStyle Brent 14 Day Sensor kit) #2 ea 01/10/24 [Rx Confirmed 04/28/24] cyclobenzaprine 10 mg tablet 10 mg PO DIRECTED PRN muscle spasm 01/15/24 [History Confirmed 04/28/24] pregabalin 300 mg capsule 300 mg PO DAILY 01/15/24 [History Confirmed 04/28/24] magnesium oxide 400 mg (241.3 mg magnesium) tablet See Rx Instructions .Route .COMPLEX #180 tabs 01/29/24 [Rx Confirmed 04/28/24] carvedilol 12.5 mg tablet 12.5 mg PO BID 04/14/24 [History Confirmed 04/28/24] temazepam 30 mg capsule 30 mg PO DAILY 30 days #30 caps 04/20/24 [Rx Confirmed 04/28/24] Touelliot SoloStar U-300 Insulin 300 unit/mL (1.5 mL) subcutaneous pen (insulin glargine U-300 conc) 22 unit (0.0733 mL) subcut DAILY #9 mL 04/28/24 [Rx Confirmed 04/28/24] donepezil 10 mg tablet 20 mg PO DAILY 04/28/24 [History Confirmed 04/28/24] empagliflozin 25 mg tablet (Jardiance) 25 mg PO DAILY #90 tabs 04/28/24 [Rx Confirmed 04/28/24] lidocaine 5 % topical ointment 1 applic topical DAILY PRN pain 04/28/24 [History Confirmed 04/28/24] memantine 10 mg tablet 10 mg PO BID 04/28/24 [History Confirmed 04/28/24] nortriptyline 25 mg capsule 25 mg PO QHS 04/28/24 [History Confirmed 04/28/24] semaglutide 2 mg/dose (8 mg/3 mL) subcutaneous pen injector (Ozempic) 2 mg (0.75mL) subcut QWEEK #9mL 04/28/24 [Rx Confirmed 04/28/24] Exam Physical Exam Vital Signs: Temp Pulse Resp BP Pulse Ox O2 Del Method 98.1 F 77 18 160/70 H 96 Room Air 04/28/24 19:39 04/28/24 22:03 04/28/24 22:03 04/28/24 22:03 04/28/24 22:03 04/28/24 22:03 Results - Hospitalist H&P Lab Results Labs: Laboratory Last Values Corrected WBC 10.2 X10E3/uL (3.8-11.6) 04/28/24 19:54 Uncorrected WBC Count 10.9 x10E3/uL (3.8-11.6) 04/28/24 19:54 RBC 5.06 x10E6/uL (3.60-5.00) H 04/28/24 19:54 Hgb 16.0 g/dL (11.8-15.4) H 04/28/24 19:54 Hct 48.1 % (34.0-46.4) H 04/28/24 19:54 MCV 95.1 fl (80-100) 04/28/24 19:54 MCH 31.7 pg (24.7-34.3) 04/28/24 19:54 MCHC 33.3 g/dL (32.0-35.0) 04/28/24 19:54 RDW 15.4 % (11.9-15.3) H 04/28/24 19:54 Plt Count 136 x10E3/uL (150-450) L 04/28/24 19:54 MPV 9.9 fl (6.3-10.7) 04/28/24 19:54 Neut % (Auto) 64.0 % (.) 04/28/24 19:54 Lymph % (Auto) 24.6 % (.) 04/28/24 19:54 [place] % (Auto) 7.6 % (.) 04/28/24 19:54 Eos % (Auto) 2.7 % (.) 04/28/24 19:54 Baso % (Auto) 1.1 % (.) 04/28/24 19:54 Nucleat RBC Rel Count 0.2 /100 WBC (0-0.5) 04/28/24 19:54 Neut # (Auto) 6.5 x10E3/uL (1.8-7.7) 04/28/24 19:54 Lymph # (Auto) 2.5 x10E3/uL (1.00-4.8) 04/28/24 19:54 [place] # (Auto) 0.8 x10E3/uL (0.0-0.8) 04/28/24 19:54 Eos # (Auto) 0.3 x10E3/uL (0.0-0.45) 04/28/24 19:54 Baso # (Auto) 0.1 x10E3/uL (0.0-0.2) 04/28/24 19:54 Monocyte Dist Width 20.25 % (0.00-20.00) H 04/28/24 19:54 Platelet Estimate Decreased (Normal) 04/28/24 19:54 Plt Morphology Comment Normal (Normal) 04/28/24 19:54 RBC Morphology N/A 04/28/24 19:54 Polychromasia Slight 04/28/24 19:54 Anisocytosis Slight 04/28/24 19:54 PT 15.1 Seconds (9.0-12.9) H 04/28/24 19:54 INR 1.3 04/28/24 19:54 APTT 30.0 Seconds (25.1-36.5) 04/28/24 19:54 PHA Creatinine Clear 77.21 04/28/24 19:54 Sodium 137 mmol/L (136-145) 04/28/24 19:54 Potassium 3.9 mmol/L (3.5-5.1) 04/28/24 19:54 Chloride 104 mmol/L (98-107) 04/28/24 19:54 Carbon Dioxide 24.2 mmol/L (21.0-31.0) 04/28/24 19:54 Anion Gap 12.7 mEq/L (6.0-15.0) 04/28/24 19:54 BUN 11 mg/dL (7-25) 04/28/24 19:54 Creatinine 0.85 mg/dL (0.60-1.20) 04/28/24 19:54 Est GFR (CKD-EPI) > 60.0 mL/Min 04/28/24 19:54 Glucose 231 mg/dL (70-100) H 04/28/24 19:54 Calcium 9.7 mg/dL (8.6-10.3) 04/28/24 19:54 Magnesium 1.7 mg/dL (1.9-2.7) L 04/28/24 19:54 Total Bilirubin 0.3 mg/dl (0.3-1.0) 04/28/24 19:54 AST 25 U/L (13-39) 04/28/24 19:54 ALT 20 U/L (7-52) 04/28/24 19:54 Alkaline Phosphatase 86 U/L (34-104) 04/28/24 19:54 Troponin I High Sens 5.1 pg/mL (0.0-15.0) 04/28/24 19:54 B-Natriuretic Peptide 25.0 pg/mL (5-100) 04/28/24 19:54 Total Protein 6.8 gm/dL (6.4-8.9) 04/28/24 19:54 Albumin 3.7 gm/dL (3.5-5.7) 04/28/24 19:54 Globulin 3.1 gm/dL 04/28/24 19:54 Albumin/Globulin Ratio 1.2 04/28/24 19:54 Urine Color Light-yellow (Yellow) 04/28/24 22:02 Urine Appearance Clear (Clear) 04/28/24 22:02 Urine pH 5.5 (5.0-9.0) 04/28/24 22:02 Ur Specific [place] 1.038 (1.001-1.030) H 04/28/24 22:02 Urine Protein Negative mg/dL (Negative) 04/28/24 22:02 Urine Glucose (UA) >=1000 mg/dL (Normal) H 04/28/24 22:02 Urine Ketones Negative (Negative) 04/28/24 22:02 Urine Occult Blood 2+ (Negative) H 04/28/24 22:02 Urine Nitrite Negative (Negative) 04/28/24 22:02 Urine Bilirubin Negative (Negative) 04/28/24 22:02 Urine Urobilinogen Normal mg/dL (Normal) 04/28/24 22:02 Ur Leukocyte Esterase Negative (Negative) 04/28/24 22:02 Urine RBC 10-19 /HPF (0-4) H 04/28/24 22:02 Urine WBC 5-9 /HPF (0-4) H 04/28/24 22:02 Ur Squamous Epith Cells 3-4 /HPF (0-2) H 04/28/24 22:02 Urine Bacteria Rare /HPF (None Seen) 04/28/24 22:02 Hyaline Casts 0-8 /LPF (0-8) 04/28/24 22:02 Urine Yeast (Budding) Rare /HPF (None Seen) H 04/28/24 22:02 COVID-19 Clin Com Not detected (Not Detecte) 04/28/24 20:19 Microbiology Results Micro: Microbiology - Results from entire visit 04/28/24 20:19 Nasopharyngeal Respiratory Panel (PCR) - Final Assessment & Plan Assessment/Plan (1) TIA (transient ischemic attack): Plan . IP vs OBS Justification Based on differential dx, clinical care plan, and risk of adverse events, if untreated, in my clinical judgement this patient requires an acute care setting as: INPATIENT because of an expectation ofan over 2 midnight stay. Estimated length of stay (# of days): 3 Documented By: Chico Hearn DO 04/28/24 22 57 Signed By: 04/29/24 0639 [facility]12-31-2024 Radiology Diagnostic study note [facility] Main [place] [address] [place] [address] CT Scan Report Signed Patient: Taye Gay MR#: [id number] : 1955 Acct:[id number] Age/Sex: 68 / F ADM Date: 4 Loc: ER Room: Type: [facility] ER Attending Dr: Copies to: Wesley Villafuerte PA-C~ Ordering Provider: Wesley Villafuerte PA-C Date of Service: 04/28/24 CT/CT angio head: weakness ([id number]) CT/CT angio neck: weakness ([id number]) CT/CT head/brain wo con: weakness CT head/brain wo con, CT angio neck, CT angio head 04/28/2024 7:45 PM SIGNS AND SYMPTOMS: Weakness, slurred speech CONTRAST: 80 mL of intravenous Isovue-370 TECHNIQUE: Multi-detector CT angiography axial slices of the head were obtained before and during intravenous administration of IV contrast material. Sagittal, coronal, and 3-D reconstructions were performed and viewed on a separate workstation. CT was performed with one or more of the following dose reduction techniques: Automated exposure control, adjustment of the mA and/or kV accordingto patient size, or use of iterative reconstruction technique. Stenoses were measured using the NASCET criteria. COMPARISON: None. FINDINGS: Noncontrast head CT: There is no shift of the midline structures, acute intracranial bleeding, mass effects, or evidenceof acute ischemia. The ventricular system is normal in size. The brainstem and the cerebellum are unremarkable. The visualized intraorbital contents and the visualized soft tissue in the infratemporal spacesshow no abnormality. Mild mucosal thickening is noted in the left sphenoid sinus. The osseous structures in the skull base and the calvarium show no acuteabnormality. CTA HEAD: The superior cerebellar arteries, posterior inferior cerebellar arteries, and the basilar artery are within normal limits. The posterior cerebral arteries areunremarkable. Calcified plaque is noted in the intracranial segments of the internal carotid arteries without significant stenosis.. There are normal anterior and middle cerebral arteries. Anterior communicating artery is patent. Posterior communicating arteries are present. The deep venous system and dural venous systems appear to be patent. No bony abnormalities are appreciated. CTA NECK: There is a normal three-vessel arch. The subclavian arteries are within normal limits. The vertebral arteries arise from the subclavian arteries and are normal in course and caliber up to the skull base. Calcified and noncalcified plaque is noted in the common and internal carotid arteries as well as the carotid bifurcations with less than 20% stenosis bilaterally. Visualized lung parenchyma is clear. Degenerative changes are noted in the cervical spine. No acutebony abnormalities are identified. The paraspinous soft tissues are within normal limits. Calcifiedand noncalcified hypoattenuating nodules are noted in the thyroid possibly relating to multinodulargoiter. CT/CT head/brain wo con IMPRESSION: No acute intracranial pathology. No evidence of focal stenosis, aneurysmal dilatation, dissection or occlusion. Impression dictated by: Oz Bowling M.D.04/28/2024 9:44 PM Dictation Location: [facility]--17 Transcribed By: AMY 04/28/242143 Dictated By: Oz Bowling II, MD 04/28/242129 Signed By: 04/28/242143 [facility] Work Phone: 1(486) 695-863312-17-2024 Evaluation note* Diagnosis Onset Date Resolution Status Admit Date High granulocyte count acute 2023 9:30am Secondary polycythemia acute De 2023 9:30am BMI 32.0-32.9,adult acute Decem 2023 11:14am Chronic kidney disease (CKD) stage G2/A2, mildly decreased glomerular filtr acute April 28, 2024 11:14am Dietary counseling and surveillance acute April 28, 2 024 11:14am Hyperlipidemia acute March 312023 11:14am Hypertension acute March 11:14am Peripheral neuropathy acute Dec ember 2023 11:14am Type 2 diabetes mellitus acute April 28, 2024 11:14am Vitamin B 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 D ecember 2023 11:14am TIA (transient ischemic attack) acut e April 28, 2024 10:38pm [facility] Work Phone: 1(176) 483-215612-17-2024 Evaluation note* Diagnosis Onset Date Resolution Status Admit Date High granulocyte count acute De cember 2023 9:30am Secondary polycythemia acute De cember 2023 9:30am BMI 32.0-32.9,adult acute Decem 2023 11:14am Chronic kidney disease (CKD) stage G2/A2, mildly decreased glomerular filtr acute April 28, 2024 11:14am Dietary counseling and surveillance acute April 28 11:14am Hyperlipidemia acute March 312023 11:14am Hypertension acute March 11:14am Peripheral neuropathy acute Mar 11:14am Type 2 diabetes mellitus acute April 28, 2024 11:14am Vitamin B 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 D ecember 2023 11:14am Atrial fibrillation acute Decem 2023 10:38pm Generalized weakness acute mb2023 10:38pm Insulin dependent diabetes mellitus acute April 28 10:38pm TIA (transient ischemic attack) acut e April 28, 2024 10:38pm [facility] Work Phone: 1(914) 586-703212-17-2024 Evaluation note* Diagnosis Onset Date Resolution Status Admit Date High granulocyte count acute De cem2023 9:30am Secondary polycythemia acute De cem2023 9:30am High granulocyte count acute De cem2023 9:53am Secondary polycythemia acute De cem2023 9:53am BMI 32.0-32.9,adult acute Decem 2023 11:14am Chronic kidney disease (CKD) stage G2/A2, mildly decreased glomerular filtr acute April 28, 2024 11:14am Dietary counseling and surveillance acute April 28 11:14am Hyperlipidemia acute March 312023 11:14am Hypertension acute March 11:14am Peripheral neuropathy acute Mar 11:14am Type 2 diabetes mellitus acute April 28, 2024 11:14am Vitamin B 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 D ecember 2023 11:14am Atrial fibrillation acute Decem 2023 10:38pm Generalized weakness acute Dece mb2023 10:38pm Insulin dependent diabetes mellitus acute April 28 10:38pm TIA (transient ischemic attack) acut e April 28, 2024 10:38pm Cigarette nicotine dependence acute May 07, 2024 1:02pm [facility] Work Phone: 1(391) 245-511812-17-2024 Evaluation note* Diagnosis Onset Date Resolution Status Admit Date High granulocyte count acute De cem2023 9:30am Secondary polycythemia acute 2023 9:30am High granulocyte count acute De 2023 9:53am Secondary polycythemia acute 2023 9:53am BMI 32.0-32.9,adult acute Decem 2023 11:14am Chronic kidney disease (CKD) stage G2/A2, mildly decreased glomerular filtr acute April 28, 2024 11:14am Dietary counseling and surveillance acute April 28 11:14am Hyperlipidemia acute March 312023 11:14am Hypertension acute March 11:14am Peripheral neuropathy acute Mar 11:14am Type 2 diabetes mellitus acute April 28, 2024 11:14am Vitamin B 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 D ecember 2023 11:14am Atrial fibrillation acute Decem 2023 10:38pm Generalized weakness acute Dece mb2023 10:38pm Insulin dependent diabetes mellitus acute April 28 10:38pm TIA (transient ischemic attack) acut e April 28, 2024 10:38pm Cigarette nicotine dependence acute May 07, 2024 1:02pm Disordered sleep acute May 07, 2024 1:02pm Hypotension acute May 07, 2024 1:02pm Stool incontinence acute 2024 1:02pm TIA (transient ischemic attack) acut e May 07, 2024 1:02pm [facility] Work Phone: 1(900) 501-867512-11-2024 History of Present illness Narrative* Karl H Lam, NADIAM - 04/08/2024 4:00 PM EST Images from the original note were not included. HPI: Patient presents today complaining of an ulcer on the lateral 5th right foot. Patient has pain withwalking and standing due to this lesion. Patient has tried [facility] for treatment, x-ray, antibiotic, (not taking d/t WBC count), ultrasound RLE . The wound on the bottom of the right foot is healed with no drainage or opening. Patient's daughter has been doing dressing changes. No other complaints. Exam: General Examination: Foot [...] the lateral 5th MPJ and medial 1st MPJ. Ulceration is noted to the 5th MPJ HYPERKERATOSIS: Location: sub 1st MPJ right NAIL PATHOLOGY: digits 1-5 bilateral are intact SKIN PATHOLOGY: texture, turgor, hair growth, within normal limits Ulcer: LOCATION: sub 1st MPJ right THICKNESS: partial STAGE: limited to breakdown of skin PREVIOUS MEASUREMENT: N/A PRE DEBRIDEMENT SIZE: closed, dried blood, callous POST DEBRIDEMENT SIZE: closed TRACKING: none DRAINAGE: serous MALODOR: none BASE: granular WOUND EDGES: hyperkeratosis SURROUNDING TISSUE: intact, mild erythema, warmth SURROUNDING SOI: none Ulcer: LOCATION: sub 5th MPJ right THICKNESS: partial STAGE: limited to breakdown of skin PREVIOUS MEASUREMENT: 2cm x 1.2cm x 0.2cm PRE DEBRIDEMENT SIZE: closed with dried blood and eschar POST DEBRIDEMENT SIZE: 1.2cm x 0.5cm x 0.2cm TRACKING: none DRAINAGE: serous MALODOR: none BASE: granular/fibrotic WOUND EDGES: hyperkeratosis SURROUNDING TISSUE: intact, mild [...] foot, limited to break down of skin Ulcer right 5th MPJ, fat layer exposed Deformity right foot Cellulitis right foot Treatment Note: Ulcer sub 1st MPJ 1. Ulcer to the sub 1st MPJ [...] offloading shoe gear as long as no redness,pain develops. 5. RTC: 2 weeks for recheck. Ulcer 5th MPJ: 1. Ulceration to the right 5th MPJ was evaluated at today's visit. 2. Wound debridement was performed of the ulceration site. As patient has full neuropathy, there isno need for local anesthesia. I did excise nonviable tissue, callus, skin, and slough of ulcerationsite. This was performed with a tissue nipper and will be one of possibly staged series of ulceration and debridements on a weekly basis pending medical necessity. Pedal pain was none. Hemostasis was obtained with pressure. 3. Saline flush to the ulceration site, followed by Amerigel and dry dressing. Patient was advised to perform daily dressing changes to the ulceration site until healed. 4. Patient advised not to submerge foot underwater until ulcer is completely healed. Patient shouldspongebathe the foot only in all unopen areas. 5. Patient was instructed on continued dressing changes to the ulceration site with Collagen gel orMedihoney. They should continue with use of the surgical shoe for offloading/pressure reduction, but patient continues to wear a sandal. 6. Patient was advised if they notice any worsening to the ulceration site including signs of infection, N/F/V/C to call the office for an urgent appointment or go to the nearest emergency room. 7. RTC: 2 weeks. documented in [facility] encounterSaint [id number] History of Present illness Narrative* Oz Kincaid MD - 04/07/2024 1:30 PM ESTAssociated Problem(s): Cognitive decline Pt to retry donepezil 15 qam (or 01/31). * Oz Kincaid MD - 04/07/2024 1:30 PM ESTAssociated Problem(s): B12 deficiency (Continue B12 SL.) * Oz Kincaid MD - 04/07/2024 1:30 PM ESTAssociated Problem(s): Carpal tunnel syndrome, bilateral (Continue splints B nightly.) * Oz Kincaid MD - 04/07/2024 1:30 PM ESTAssociated Problem(s): Cervical paraspinal muscle spasm * Oz Kincaid MD - 04/07/2024 1:30 PM ESTAssociated Problem(s): Guyon syndrome, unspecified laterality * Oz Kincaid MD - 04/07/2024 1:30 PM ESTAssociated Problem(s): Neurogenic pain (Continue current regimen.) * Oz Kincaid MD - 04/07/2024 1:30 PM ESTAssociated Problem(s): Granulocytosis Consult haematology. * Oz Kincaid MD - 04/07/2024 1:30 PM EST Images from the original note were not included. Outpatient Progress Note Patient: Taye Gay Dept: Neurology : 1955 Appt Date: 04/07/2024 Prev Appt: 02/25/2024 Chief Complaint Patient presents with cognitive decline Assessment and Plan - Assessment & Plan Cognitive decline Pt to retry donepezil 15 qam (or 01/31). B12 deficiency (Continue B12 SL.) Neurogenic pain (Continue current regimen.) Carpal tunnel syndrome, bilateral (Continue splints B nightly.) Cervical paraspinal muscle spasm Guyon syndrome, unspecified laterality Granulocytosis Consult haematology. No orders of the defined types were placed in this encounter. Follow-Up - Follow up in about 6 months (around 10/06/2024), or [facility]STITCHER LOCKSTITCH. History of Present Illness, Associated Treatments and Results - Dx SLEEP Tx (temazepam 30 --Schlotterer/FMD) (+ OFF nortriptyline) AEs Hx Not reviewed this visit. From old note - [[[ No longer taking daily naps since getting accustomed to medications. From Prev: Snoring. No one has observed pt's sleep. Awakenings per night. Unrefreshed AM. Mouth dry AM. ]]] Failed Semeiology Circadian Noct oxim (02/2017) - CACHORRO=3.4 PSG PAPT MSLT MWT Imaging Testing Surgery Dx PN . PAIN . RLS . B12 . L S1 . (DM) Tx PGB 300 bid (+ NOW OFF nortriptyline --Schlotterer/PCP/depr) cyclobenz 10 hs B12 SL AEs denies wt gain. Hx Pain - better with increased dose, now 05/08, now an ache . Radic - pt had seen Dr. Eden 12/2023, surgery felt not to be needed as yet. +BEATRICE - has seeen by Dr. Lenz, From prev - [[[ Lost to follow-up since 2018. Worsening gait, more unsteady, muscle atrophy in LEs.Burning paraesthesiae B feet, about equal bilat. ]]] Onset Semeiology Paraesthesiae in feet and fingertips 08/06. Restlessness well controlled. Imaging MR L-s (11/2023, [facility]) - HNP T12-L1 mild; canal sten L2-3 mod; errol sten L2-3 modB L4-5-S1 modB US LE (12/2016, [facility]) - atherosclerosis, nl PVR. Testing [facility] (11/2023) - acute L S1 (nEMG) + PN pattern signif worse . . . . (03/2017, [facility]) - PN pattern Labs - Q86=586/15/116/>22.3, was 359/16.7H/328/>22.3 ... A1c=8.4, was 10.4(!) ,,, BEATRICE=1:320, was 1:80 but subtests nl. . . . . M&S Neurop Panel ([facility]) - _ Surgery Failed ?GBP (ineff), dulox ?dose (?why). Dx COGNITION Tx (already on ASA 81) AEs Hx Pt has been forgetting things she clearly knew in the past, forgetting that she ordered something online. Spelling has become much worse when texting, which had always been good in the past. Dangerous decision-making e.g. letting a 17 y.o. granddaughter [address] prior to the latter getting her fulllicense. Used to talk to son on the phone for an hour; now maintains only brief conversations. Stopped driving 2023 ~August due to gait instability. Does not cook. Daughter has handled the bills for a long time. Daughter feels there may be an element of depression, especially now that pt is off nortrip. Onset Semeiology Imaging MR brain (10/2023, [facility]) - not available via OHIP - atrophy age- appropriate & ^T2/FLAIR Testing (q.v.) ... Oximetry - done regularly, reported as nl Surgery Failed Dx MYOFASCIITIS Tx PT ongoing AEs Hx Improved with PT, but inconsistent due to transportation. Onset Semeiology Imaging Testing Surgery Failed cyclobenz Dx CTS Tx splints (+ PGB) (+ inj 12/2023 B) AEs Hx Surgery improved sx but still present. Onset Semeiology Numbness B; weakness R. Imaging Testing [facility] (11/2023) - DMLs 5.2R 5.0L sens CVs _ 40L ... ulnar DMLs 3.9R 3.3L sens CVs 29R 47L . . . . (01/2018) - DMLs 4.5R 5.3L . . . . (11/2016) - DMLs 5.2R 4.4L. Labs - A1c=6.[address] release R (07/2017, [facility]). Failed CONTRA - inj (DM). Physical Exam - General appearance, mentation, extraocular movements, facial strength and movement, hearing, upper and lower extremity strength and tone, sensation to gross testing, coordination, and gait are normalor at baseline unless noted below. HEENT - ___, unchanged: Tongue very large ... Mallampati IV, orig: ___ MS - ___, unchanged: ___, orig: ___ CNN - ___, unchanged: ___, orig: ___ Motor - ___, unchanged: Epidemiology Internship 4B ... APB 4R 4+L, orig: ___ Sens - ___, unchanged: Tinel +R ... Vibr, temp loss distal LEs ... NO hyperpathia, allodynia, orig:___ Reflex - ___, unchanged: AJ 0B, orig: KJ 1B Coord - ___, unchanged: Romberg 1+, orig: ___ Gait - ___, unchanged: Wide, quite atactic ... Tandem 3+, orig: ___ Vestib - ___, unchanged: ___, orig: ___ MSK - Spasm - Tr C sev L mod, unchanged: ___, orig: ___ Other - ___, unchanged: ___, orig: ___ Vital Signs - Visit Vitals Ht 5' 7 Wt 200 lb BMI 31.32 kg/m Smoking Status Every Day BSA 2.07 m Review of Systems - . Const: Denies appetite change, fever, chills. Allergy: Denies medication reaction. Ocular: Denies visual acuity change. ENT: Denies hearing change. Endoc: Denies weight loss. Resp: Denies dyspnoea, wheezing. Cardiac: Denies angina, palpitations. GI: Denies nausea, vomiting. Haem: Denies bleeding. : Denies incontinence. MSK: Denies arthralgias, joint oedema. Derm: Denies rash, hair loss. Neuro: Denies ataxia, tremor. Also see HPI for elements of ROS documented therein and for details of positive findings, which shall supersede the foregoing. PMH, PSH, Allergies, FH, SH - Past Medical History: Diagnosis Date Abnormal Pap smear of cervix hpv positive COVID-19 Diabetes (CMS/HCC) Fibromyalgia High cholesterol (CMS/HCC) History of medical problems ulcer HTN (hypertension) (CMS/HCC) Neuropathy Rheumatoid arthritis (CMS/HCC) Scarlet fever Stomach ulcer Tonsillitis Past Surgical History: Procedure Laterality Date BIOPSY 04/2020 vulvar CARPAL TUNNEL RELEASE Right 2018 COLPOSCOPY 01/21/2017 COLPOSCOPY 09/2018 COLPOSCOPY 10/2019 COLPOSCOPY 09/2021 ESOPHAGEAL DILATION HYSTERECTOMY PARTIAL HYSTERECTOMY NE VULVECTOMY SIMPLE PARTIAL 12/2018 TONSILLECTOMY VULVECTOMY 12/2017 Allergies Allergen Reactions Sulfa Antibiotics GI intolerance and Unknown Family History Problem Relation Name Age of Onset Hypertension Mother Heart disease Mother Stroke Mother Stroke Father Heart disease Father Cancer Father Bipolar disorder Sister Diabetes Sibling Mental illness Daughter Diabetes Son Outpatient Encounter Medications as of 04/07/2024 Medication Sig Dispense Refill carvedilol (Coreg) 12.5 MG tablet Take 12.5 mg by mouth in the morning and 12.5 mg in the evening. Take with meals. aspirin 81 MG EC tablet Take 81 mg by mouth in the morning. Continuous Blood Gluc Sensor (FreeStyle Brent 14 Day Sensor) [facility] apply 1 SENSOR as directed every 14 days use with DEVICE to MONIT... (REFER TO PRESCRIPTION NOTES). cyanocobalamin (Vitamin B-12) 2500 MCG tablet cyclobenzaprine (Flexeril) 10 MG tablet 1-2 tabs QHS 60 tablet 3 Docusate Sodium (DSS) 100 MG capsule Take 100 mg by mouth in the morning and 100 mg in the evening. donepezil (Aricept) 10 MG tablet Up to 2 QAM if tolerated 60 tablet 3 Droplet Pen Webster 32G X [address] [facility] use 1 PEN NEEDLE to inject MEDICATION subcutaneously five timesa day Eliquis 5 MG tablet Take 5 mg by mouth in the morning and 5 mg before bedtime. folic acid (Folvite) 1 MG tablet Take 1,000 mcg by mouth Daily Jardiance 25 MG take 1 tablet orally once daily lidocaine (Xylocaine) 5 % ointment Apply topically Daily Use as needed over the wound sites with dressing changes. 50 g 2 magnesium oxide (Mag-Ox) 400 (240 Mg) MG tablet Take 400 mg by mouth in the morning and 400 mg before bedtime. memantine (Namenda) 10 MG tablet 1 tab every day x3-5 days then BID 60 tablet 3 metFORMIN (Glucophage) 500 MG tablet Take 500 mg by mouth nortriptyline (Pamelor) 25 MG capsule Take 1 capsule (25 mg) by mouth at bedtime 30 capsule 5 omeprazole (PriLOSEC) [address] capsule Ozempic, 1 MG/DOSE, 4 MG/3ML solution pen-injector Administer 1mg subcutaneously once weekly pioglitazone (Actos) 15 MG tablet Take 15 mg by mouth at bedtime pregabalin (Lyrica) 300 MG capsule TAKE 1 CAPSULE BY MOUTH TWICE A DAY 60 capsule 3 simvastatin (Zocor) 20 MG tablet Take 20 mg by mouth at bedtime. temazepam (Restoril) 30 MG capsule take 1 capsule by mouth at bedtime if needed Touelliot SoloStar 300 UNIT/ML injection inject 20 units subcutaneously as directed [DISCONTINUED] metoprolol succinate XL (Toprol-XL) 50 MG 24 hr tablet Take 50 mg by mouth in the morning and 50 mg in the evening. No facility-administered encounter medications on file as of 04/07/2024. Oz Kincaid M.D. [facility] ? [address] ? [place] [address] ? ? fax Neurology ? Clinical Neurophysiology ? Epilepsy ? Sleep Disorders ? Clinical Informatics documented in this encounterSaint Luke's [facility] Hospital–[id number] History of Present illness Narrative* Thuan Wise MD - 03/25/2024 1:30 PM EST Subjective Taye Gay is a 68 y.o. female Chief Complaint Blood Pressure Check HPI Patient is here for follow-up continue management for hypertension her daughter recently called concerned that metoprolol may be causing some vague neurologic symptoms. Family described decline of cognitive function. We did switch her to Coreg but the family said minimal to no improvement. Her blood pressure and heart rate appears to be well-controlled. Assessment 1. Hypertension controlled 2. Atrial flutter in sinus rhythm 3. Family describe decline in cognitive function Plan 1. I told the family is unlikely that her neurosymptoms is related to beta-blockers 2. I suggested neuro evaluation and workup for dementia. Family reported that they scheduled to seePCP in the near future Plan ROS Vitals: 03/25/24 1342 BP: 100/64 BP Location: Right arm Patient Position: Sitting Pulse: 63 Weight: 94.3 kg (208 lb) Height: 1.702 m (5' 7 ) Objective Physical Exam Allergies Sulfa (sulfonamide antibiotics) Current Medications Current Outpatient Medications: apixaban (Eliquis) 5 mg tablet, Take 1 tablet (5 mg) by mouth 2 times a day., Disp: 180 tablet, Rfl: 3 aspirin 81 mg EC tablet, Take 1 tablet (81 mg) by mouth once daily., Disp: , Rfl: carvedilol (Coreg) 12.5 mg tablet, Take 1 tablet (12.5 mg) by mouth 2 times daily (morning and lateafternoon)., Disp: 180 tablet, Rfl: 3 docusate sodium (Colace) 100 mg capsule, Take 1 capsule (100 mg) by mouth 2 times a day., Disp: , Rfl: empagliflozin (Jardiance) 25 mg, Take 1 tablet (25 mg) by mouth once daily., Disp: , Rfl: folic acid (Folvite) 1 mg tablet, 1 tablet (1 mg) once daily., Disp: , Rfl: HumaLOG KwikPen Insulin 100 unit/mL injection, inject subcutaneously before meals and at bedtime 1:50 CORRECTIVE SCALE (EXPECT UP TO 20 UNITS/DAY, Disp: , Rfl: insulin glargine (Toujeo Solostar- 1 unit dial) 300 unit/mL (1.5 mL) injection, 20 Units., Disp: , Rfl: magnesium oxide (Mag-Ox) 400 mg tablet, Take 1 tablet (400 mg) by mouth once daily., Disp: 90 tablet, Rfl: 3 metFORMIN (Glucophage) 500 mg tablet, Take 1 tablet (500 mg) by mouth 2 times daily (morning and late afternoon)., Disp: , Rfl: omeprazole (PriLOSEC) 20 mg [...] by mouth once daily at bedtime., Disp: 90 tablet, Rfl: 3 temazepam (Restoril) 30 mg capsule, Take 1 capsule (30 mg) by mouth 1 time., Disp: , Rfl: Assessment/Plan 1. Hypertension, unspecified type Follow Up In Cardiology 2. Typical atrial flutter (Multi) ECG 12 Lead Scribe Attestation By signing my name below, Vania BardalesKenisha SENIOR SOFTWARE ENGINEER, Scribe attest that this documentation has been prepared under the direction and in the presence of MD Candy. Provider Attestation - Scribe documentation All medical record entries made by the Scribe were at my direction and personally dictated by me. Ihave reviewed the chart and agree that the record accurately reflects my personal performance of the history, physical exam, discussion and plan. documented in this encounterUniversity Hospitals [facility] Work Phone: [phone]) 790-856011-27-2024 Instructions* Patient Instructions* Dave Meneses MA - 03/25/2024 1:30 PM EST Please bring all medicines, vitamins, and herbal supplements with you when you come to the office. Prescriptions will not be filled unless you are compliant with your follow up appointments or have a follow up appointment scheduled as per instruction of your physician. Refills should be requested at the time of your visit. documented in this encounterUniversity Hospitals [facility] Center Work Phone: [phone] 472-997510-29-2024 History of Present illness Narrative* Oz Kincaid MD - 02/25/2024 2:43 PM EDTAssociated Problem(s): BEATRICE positive Get Dr. Gonzalez's note (2nd request). * Oz Kincaid MD - 02/25/2024 2:15 PM EDTAssociated Problem(s): Cognitive decline Add memantine 10 -> bid. Then add donepezil 10, titrate. Handout. Get MR images transferred to [facility] PACS for my review. * Oz Kincaid MD - 02/25/2024 2:15 PM EDTAssociated Problem(s): Neurogenic pain (Continue PGB.) Add back nortriptyline 25. * Oz Kincaid MD - 02/25/2024 2:15 PM EDTAssociated Problem(s): Carpal tunnel syndrome, bilateral (Continue splints B nightly.) Try to lower A1c further. * Oz Kincaid MD - 02/25/2024 2:15 PM EDTAssociated Problem(s): B12 deficiency (Continue B12 SL.) * Oz Kincaid MD - 02/25/2024 2:15 PM EDT Images from the original note were not included. Outpatient Progress Note Patient: Taye Gay Dept: Neurology : 1955 Appt Date: 02/25/2024 Prev Appt: 01/07/2024 Chief Complaint Patient presents with Peripheral Neuropathy Assessment and Plan - Assessment & Plan Cognitive decline Add memantine 10 -> bid. Then add donepezil 10, titrate. Handout. Get MR images transferred to [facility] PACS for my review. Neurogenic pain (Continue PGB.) Add back nortriptyline 25. Carpal tunnel syndrome, bilateral (Continue splints B nightly.) Try to lower A1c further. B12 deficiency (Continue B12 SL.) No orders of the defined types were placed in this encounter. Follow-Up - Follow up in about 6 weeks (around 04/07/2024). History of Present Illness, Associated Treatments and Results - Dx SLEEP Tx (temazepam 30 --Schlotterer/FMD) (+ OFF nortriptyline) AEs Hx Not reviewed this visit. From old note - [[[ No longer taking daily naps since getting accustomed to medications. From Prev: Snoring. No one has observed pt's sleep. Awakenings per night. Unrefreshed AM. Mouth dry AM. ]]] Failed Semeiology Circadian Noct oxim (02/2017) - CACHORRO=3.4 PSG PAPT MSLT MWT Imaging Testing Surgery Dx PN . PAIN . RLS . B12 . L S1 . (DM) Tx PGB 300 bid (+ NOW OFF nortriptyline --Schlotterer/PCP/depr) cyclobenz 10 hs B12 SL AEs denies wt gain. Hx Pain - better with increased dose, now 05/08, now an ache . Radic - pt had seen Dr. Eden 12/2023, surgery felt not to be needed as yet. +BEATRICE - has seeen by Dr. Lenz, From prev - [[[ Lost to follow-up since 2018. Worsening gait, more unsteady, muscle atrophy in LEs.Burning paraesthesiae B feet, about equal bilat. ]]] Onset Semeiology Paraesthesiae in feet and fingertips 4/10. Restlessness well controlled. Imaging MR LHernandos (11/2023, [facility]) - HNP T12-L1 mild; canal sten L2-3 mod; errol sten L2-3 modB L4-5-S1 modB US LE (12/2016, [facility]) - atherosclerosis, nl PVR. Testing [facility] (11/2023) - acute L S1 (nEMG) + PN pattern signif worse . . . . (03/2017, [facility]) - PN pattern Labs - Q14=813/15/116/>22.3, was 359/16.7H/328/>22.3 ... A1c=8.4, was 10.4(!) ,,, BEATRICE=1:320, was 1:80 but subtests nl. . . . . M&S Neurop Panel ([facility]) - _ Surgery Failed ?GBP (ineff), dulox ?dose (?why). Dx COGNITION Tx (already on ASA 81) AEs Hx Pt has been forgetting things she clearly knew in the past, forgetting that she ordered something online. Spelling has become much worse when texting, which had always been good in the past. Dangerous decision-making e.g. letting a 17 y.o. granddaughter [address] prior to the latter getting her fulllicense. Used to talk to son on the phone for an hour; now maintains only brief conversations. Stopped driving 2023 ~August due to gait instability. Does not cook. Daughter has handled the bills for a long time. Daughter feels there may be an element of depression, especially now that pt is off nortrip. Onset Semeiology Imaging MR brain (10/2023, [facility]) - not available via [place] - atrophy age- appropriate & ^T2/FLAIR Testing (q.v.) ... Oximetry - done regularly, reported as nl Surgery Failed Dx MYOFASCIITIS Tx PT ongoing AEs Hx Improved with PT, but inconsistent due to transportation. Onset Semeiology Imaging Testing Surgery Failed cyclobenz Dx CTS Tx splints (+ PGB) (+ inj 12/2023 B) AEs Hx Surgery improved sx but still present. Onset Semeiology Numbness B; weakness R. Imaging Testing [facility] (11/2023) - DMLs 5.2R 5.0L sens CVs _ 40L ... ulnar DMLs 3.9R 3.3L sens CVs 29R 47L . . . . (01/2018) - DMLs 4.5R 5.3L . . . . (11/2016) - DMLs 5.2R 4.4L. Labs - A1c=6.[address] release R (07/2017, [facility]). Failed CONTRA - inj (DM). Physical Exam - General appearance, mentation, extraocular movements, facial strength and movement, hearing, upper and lower extremity strength and tone, sensation to gross testing, coordination, and gait are normalor at baseline unless noted below. HEENT - ___, unchanged: Tongue very large ... Mallampati IV, orig: ___ MS - ___, unchanged: ___, orig: ___ CNN - ___, unchanged: ___, orig: ___ Motor - ___, unchanged: Epidemiology Internship 4B ... APB 4R 4+L, orig: ___ Sens - ___, unchanged: Tinel +R ... Vibr, temp loss distal LEs ... NO hyperpathia, allodynia, orig:___ Reflex - ___, unchanged: AJ 0B, orig: KJ 1B Coord - ___, unchanged: Romberg 1+, orig: ___ Gait - ___, unchanged: Wide, quite atactic ... Tandem 3+, orig: ___ Vestib - ___, unchanged: ___, orig: ___ MSK - Spasm - Tr C sev L mod, unchanged: ___, orig: ___ Other - ___, unchanged: ___, orig: ___ Vital Signs - Visit Vitals BP 130/84 Pulse 74 Ht 5' 7 Wt 200 lb BMI 31.32 kg/m Smoking Status Every Day BSA 2.07 m Review of Systems - . Const: Denies appetite change, fever, chills. Allergy: Denies medication reaction. Ocular: Denies visual acuity change. ENT: Denies hearing change. Endoc: Denies weight loss. Resp: Denies dyspnoea, wheezing. Cardiac: Denies angina, palpitations. GI: Denies nausea, vomiting. Haem: Denies bleeding. : Denies incontinence. MSK: Denies arthralgias, joint oedema. Derm: Denies rash, hair loss. Neuro: Denies ataxia, tremor. Also see HPI for elements of ROS documented therein and for details of positive findings, which shall supersede the foregoing. PMH, PSH, Allergies, FH, SH - Past Medical History: Diagnosis Date Abnormal Pap smear of cervix hpv positive COVID-19 Diabetes (CMS/HCC) Fibromyalgia High cholesterol (CMS/HCC) History of medical problems ulcer HTN (hypertension) (CMS/HCC) Neuropathy Rheumatoid arthritis (CMS/HCC) Scarlet fever Stomach ulcer Tonsillitis Past Surgical History: Procedure Laterality Date BIOPSY 04/2020 vulvar CARPAL TUNNEL RELEASE Right 2018 COLPOSCOPY 01/21/2017 COLPOSCOPY 09/2018 COLPOSCOPY 10/2019 COLPOSCOPY 09/2021 ESOPHAGEAL DILATION HYSTERECTOMY PARTIAL HYSTERECTOMY NE VULVECTOMY SIMPLE PARTIAL 12/2018 TONSILLECTOMY VULVECTOMY 12/2017 Allergies Allergen Reactions Sulfa Antibiotics GI intolerance and Unknown Family History Problem Relation Name Age of Onset Hypertension Mother Heart disease Mother Stroke Mother Stroke Father Heart disease Father Cancer Father Bipolar disorder Sister Diabetes Sibling Mental illness Daughter Diabetes Son Outpatient Encounter Medications as of 02/25/2024 Medication Sig Dispense Refill aspirin 81 MG EC tablet Take 81 mg by mouth in the morning. Continuous Blood Gluc Sensor (eLearning Connectionsyle Brent 14 Day Sensor) [facility] apply 1 SENSOR as directed every 14 days use with DEVICE to MONIT... (REFER TO PRESCRIPTION NOTES). cyanocobalamin (Vitamin B-12) 2500 MCG tablet cyclobenzaprine (Flexeril) 10 MG tablet 1-2 tabs QHS 60 tablet 3 Docusate Sodium (DSS) 100 MG capsule Take 100 mg by mouth in the morning and 100 mg in the evening. Droplet Pen Webster 32G X [address] [facility] use 1 PEN NEEDLE to inject MEDICATION subcutaneously five timesa day Eliquis 5 MG tablet Take 5 mg by mouth in the morning and 5 mg before bedtime. folic acid (Folvite) 1 MG tablet Take 1,000 mcg by mouth Daily Jardiance 25 MG take 1 tablet orally once daily lidocaine (Xylocaine) 5 % ointment Apply topically Daily Use as needed over the wound sites with dressing changes. 50 g 2 magnesium oxide (Mag-Ox) 400 (240 Mg) MG tablet Take 400 mg by mouth in the morning and 400 mg before bedtime. metFORMIN (Glucophage) 500 MG tablet Take 500 mg by mouth metoprolol succinate XL (Toprol-XL) 50 MG 24 hr tablet Take 50 mg by mouth in the morning and 50 mgin the evening. omeprazole (PriLOSEC) [address] capsule Ozempic, 1 MG/DOSE, 4 MG/3ML solution pen-injector Administer 1mg subcutaneously once weekly pioglitazone (Actos) 15 MG tablet Take 15 mg by mouth at bedtime pregabalin (Lyrica) 300 MG capsule TAKE 1 CAPSULE BY MOUTH TWICE A DAY 60 capsule 3 simvastatin (Zocor) 20 MG tablet Take 20 mg by mouth at bedtime. temazepam (Restoril) 30 MG capsule take 1 capsule by mouth at bedtime if needed Toujeo SoloStar 300 UNIT/ML injection inject 20 units subcutaneously as directed [DISCONTINUED] nortriptyline (Pamelor) 50 MG capsule No facility-administered encounter medications on file as of 02/25/2024. Oz Kincaid M.D. [facility] ? [address] [facility] [address] ? [place] [address] ? ? fax Neurology ? Clinical Neurophysiology ? Epilepsy ? Sleep Disorders ? Clinical Informatics documented in this encounterSaint Luke's [facility] Hospital–[id number] History of Present illness Narrative* Karl Fritz, BARRIE - 02/10/2024 2:00 PM EDT Images from the original note were not included. HPI: Patient presents today complaining of an ulcer on the plantar 1st met right foot. They have noticedthis for the past month (10/2023). Patient has pain with walking and standing due to this lesion. Patient has tried [facility] for treatment, x-ray, antibiotic, (not taking [...] the lateral 5th MPJ and medial 1st MPJ. Medial 1st MPJ blister is healed, no opening noted. Ulceration is noted to the 5thMPJ HYPERKERATOSIS: Location: sub 1st MPJ right NAIL PATHOLOGY: digits 1-5 bilateral are intact SKIN PATHOLOGY: texture, turgor, hair growth, within normal limits Ulcer: LOCATION: sub 1st MPJ right THICKNESS: partial STAGE: limited to breakdown of skin PREVIOUS MEASUREMENT: N/A PRE DEBRIDEMENT SIZE: closed, dried blood, callous POST DEBRIDEMENT SIZE: closed TRACKING: none DRAINAGE: serous MALODOR: none BASE: granular WOUND EDGES: hyperkeratosis SURROUNDING TISSUE: intact, mild erythema, warmth SURROUNDING SOI: none Ulcer: LOCATION: sub 5th MPJ right THICKNESS: partial STAGE: limited to breakdown of skin PREVIOUS MEASUREMENT: N/A PRE DEBRIDEMENT SIZE: dried eschar from prior blister POST DEBRIDEMENT SIZE: 2cm x 1.2cm x 0.2cm TRACKING: none DRAINAGE: serous MALODOR: none BASE: granular/fibrotic WOUND EDGES: hyperkeratosis SURROUNDING TISSUE: intact, mild [...] foot, limited to break down of skin Ulcer right 5th MPJ, fat layer exposed Deformity right foot Cellulitis right foot Treatment Note: Ulcer sub 1st MPJ 1. Ulcer to the sub 1st MPJ [...] offloading shoe gear as long as no redness,pain develops. 5. RTC: 2 weeks for recheck. Ulcer 5th MPJ: 1. Ulceration to the right 5th MPJ was evaluated at today's visit. 2. Wound debridement was performed of the ulceration site. As patient has full neuropathy, there isno need for local anesthesia. I did excise nonviable tissue, callus, skin, and slough of ulcerationsite. This was performed with a tissue nipper and will be one of possibly staged series of ulceration and debridements on a weekly basis pending medical necessity. Pedal pain was none. Hemostasis was obtained with pressure. 3. Saline flush to the ulceration site, followed by Amerigel and dry dressing. Patient was advised to perform daily dressing changes to the ulceration site until healed. 4. Patient advised not to submerge foot underwater until ulcer is completely healed. Patient shouldspongebathe the foot only in all unopen areas. 5. Patient was instructed on continued dressing changes to the ulceration site with Collagen gel orMedihoney. They should continue with use of the surgical shoe for offloading/pressure reduction, but patient continues to wear a sandal. 6. Patient was advised if they notice any worsening to the ulceration site including signs of infection, N/F/V/C to call the office for an urgent appointment or go to the nearest emergency room. 7. RTC: 2 weeks. documented in this encounterSaint Luke's [facility] Hospital–[id number] History of Present illness Narrative* Karl Fritz DPM - 01/27/2024 10:30 AM EDT Images from the original note were not included. HPI: Patient presents today complaining of an ulcer on the plantar 1st met right foot. They have noticedthis for the past month (10/2023). Patient has pain with walking and standing due to this lesion. Patient has tried [facility] for treatment, x-ray, antibiotic, (not taking [...] tight across the foot with her shoes. Mostlyclear, bloody drainage was noted from the 5th [...] offloading shoe gear as long as no redness,pain develops. 5. RTC: 2 weeks for recheck. Blister right foot: Areas of blister to the right foot were drained with a 15 blade and bloody/serous drainage was removed from the blister. Blister to the sub 1st MPJ is healed. There is dried blood and opening along the 5th MPJ blister. Any non- viable tissue was removed. Patient was instructed on daily dressing changes with antibiotic cream and Band-Aid over the area of the fifth MPJ until this is healed. The prior ulceration site is healed so she does not need to continue with dressing over this area. I encouraged her to continue with a Band-Aid over the sites of blister in order to prevent increased opening.Patient will follow up in 1 week for recheck. documented in this encounterSaint Luke's North Hospital–[id number] History of Present illness Narrative* Karl Fritz DPM - 01/21/2024 11:00 AM EDT Images from the original note were not included. HPI: Patient presents in office today with a blood blister on the lateral 5th met right foot., a week ago, noticed when removing dressing after using coban to keep dressing in place. No other complaints. Exam: General Examination: Foot [...] of dried callous sub 1st MPJ right. New blood blister to the lateral 5th MPJ and medial 1st MPJ- patient relates that the wrap was too tight across the foot with her shoes. Mostly clear, bloody drainage was noted from the blister sites, no evidence of infection noted. HYPERKERATOSIS: Location: sub 1st MPJ right NAIL PATHOLOGY: digits 1-5 bilateral are intact SKIN PATHOLOGY: texture, turgor, hair growth, within normal limits Ulcer: LOCATION: sub 1st MPJ right THICKNESS: partial STAGE: limited to breakdown of skin PREVIOUS MEASUREMENT: 1cm x 0.6cm x 0.2cm PRE DEBRIDEMENT SIZE: closed, dried blood callous POST DEBRIDEMENT SIZE: closed, dried blood callous TRACKING: none DRAINAGE: serous MALODOR: none WOUND EDGES: hyperkeratosis SURROUNDING TISSUE: intact, mild [...] offloading shoe gear as long as no redness,pain develops. 5. RTC: 2 weeks for recheck. Blister right foot: Areas of blister to the right foot were drained with a 15 blade and bloody/serous drainage was removed from the blister. The overlying skin was left intact and patient was instructed to try to prevent D christiano in order to protect the underlying skin. The prior ulceration site is healed so she doesnot need to continue with dressing over this area. I encouraged her to continue with a Band-Aid over the sites of blister in order to prevent increased opening. Patient will follow up in 1 week for recheck. documented in this encounterSaint Luke's North Hospital–SmithvilleDilzesjzvz51-60-1349 Telephone encounter Note* Telephone Encounter - Cali Duque - 01/10/2024 2:34 PM EDT Called and spoke with Corinna twice both times got disconnected. On purpose or by accident not sure, second time Corinna was given Dr Kincaid's answer. Not sure if she got full and complete answer, but she got enough of it. [facility]–Sm[id number] Miscellaneous Notes* Telephone Encounter - Cali Duque - 01/10/2024 2:34 PM EDT Called and spoke with Corinna twice both times got disconnected. On purpose or by accident not sure, second time Corinna was given Dr Kincaid's answer. Not sure if she got full and complete answer, but she got enough of it. * Telephone Encounter - Cali Duque - 01/08/2024 12:37 PM EDT Daughter (Corinna Ayala) called, She was talking with Taye's Nurse, They would like to know if Gabapentin would be a better option for Taye than the PGB? You just inc her PGB from 1 cap bid to 150/300 x several days, then 300 bid Corinna [phone] documented in this encounterSaint [facility]–SmithvilleDtrqnesbaw88-55-1532 Telephone encounter Note* Telephone Encounter - Cali Duuqe - 01/08/2024 12:37 PM EDT Daughter (Corinna Ayala) called, She was talking with Taye's Nurse, They would like to know if Gabapentin would be a better option for Taye than the PGB? You just inc her PGB from 1 cap bid to 150/300 x several days, then 300 bid Corinna [phone] [facility]villePzpjodrymg85-95-9298 History of Present illness Narrative* Oz Kincaid MD - 01/07/2024 1:44 PM EDTAssociated Problem(s): BEATRICE positive Get rheum note. * Oz Kincaid MD - 01/07/2024 1:43 PM EDTAssociated Problem(s): B12 deficiency (Continue B12 SL.) * Oz Kincaid MD - 01/07/2024 1:40 PM EDTAssociated Problem(s): Carpal tunnel syndrome, bilateral (Continue splints B nightly.) Try to lower A1c further. * Oz Kincaid MD - 01/07/2024 1:40 PM EDTAssociated Problem(s): Cervical paraspinal muscle spasm PT - please add PT to neck. * Oz Kincaid MD - 01/07/2024 1:39 PM EDTAssociated Problem(s): Lumbar paraspinal muscle spasm Add cyclobenzaprine 10 hs, may incr to 20 hs. (Continue PT.) * Oz Kincaid MD - 01/07/2024 1:37 PM EDTAssociated Problem(s): Neurogenic pain Incr PGB to 150/300 x several days, then 300 bid. * Oz Kincaid MD - 01/07/2024 1:36 PM EDTAssociated Problem(s): Lumbosacral radiculopathy at S1 Consult spine surg - pt requested Dr. Flor. * Oz Kincaid MD - 01/07/2024 1:15 PM EDT Images from the original note were not included. Outpatient Progress Note Prev Appt: 11/01/2023 Chief Complaint Patient presents with Peripheral Neuropathy Assessment and Plan - Lumbosacral radiculopathy at S1 Consult spine surg - pt requested Dr. Flor. Neurogenic pain Incr PGB to 150/300 x several days, then 300 bid. Lumbar paraspinal muscle spasm Add cyclobenzaprine 10 hs, may incr to 20 hs. (Continue PT.) Cervical paraspinal muscle spasm PT - please add PT to neck. Carpal tunnel syndrome, bilateral (Continue splints B nightly.) Try to lower A1c further. B12 deficiency (Continue B12 SL.) BEATRICE positive Get rheum note. No orders of the defined types were placed in this encounter. Follow-Up - Follow up in about 3 months (around 04/07/2024). History of Present Illness, Associated Treatments and Results - Dx SLEEP Tx (temazepam 30 --Schlotterer/FMD) (+ nortriptyline) AEs Hx Not reviewed this visit. From old note - [[[ No longer taking daily naps since getting accustomed to medications. From Prev: Snoring. No one has observed pt's sleep. Awakenings per night. Unrefreshed AM. Mouth dry AM. ]]] Failed Semeiology Circadian Noct oxim (02/2017) - CACHORRO=3.4 PSG PAPT MSLT MWT Imaging Testing Surgery Dx PN . PAIN . RLS . B12 . L S1 . (DM) Tx PGB 150 bid (+ NOW OFF nortriptyline --Schlotterer/PCP/depr) B12 SL AEs denies wt gain. Hx PT has improved flexibility but pt has neurogenic pain lumbar after sessions. Pain - improved but not entirely resolved. From prev - [[[Lost to follow-up since 2018. Worsening gait, more unsteady, muscle atrophy in LEs. Burning paraesthesiae B feet, about equal bilat. Onset Semeiology Paraesthesiae in feet and fingertips 08/06. Restlessness well controlled. Imaging MR L-s (11/2023, [facility]) - HNP T12-L1 mild; canal sten L2-3 mod; errol sten L2-3 modB L4-5-S1 modB US LE (12/2016, [facility]) - atherosclerosis, nl PVR. Testing [facility] (11/2023) - acute L S1 (nEMG) + PN pattern signif worse . . . . (03/2017, [facility]) - PN pattern Labs - K81=148/15/116/>22.3, was 359/16.7H/328/>22.3 ... A1c=8.4, was 10.4(!) ,,, BEATRICE=1:320, was 1:80. Surgery Failed ?GBP (ineff), dulox ?dose (?why). Dx MYOFASCIITIS Tx PT ongoing AEs Hx Improved with PT, but inconsistent due to transportation. Onset Semeiology Imaging Testing Surgery Failed cyclobenz Dx CTS Tx splints restarted (+ PGB) (+ inj 12/2023 B) AEs Hx Surgery improved sx but still present. Onset Semeiology Numbness B; weakness R. Imaging Testing [facility] (11/2023) - DMLs 5.2R 5.0L sens CVs _ 40L ... ulnar DMLs 3.9R 3.3L sens CVs 29R 47L . . . . (01/2018) - DMLs 4.5R 5.3L . . . . (11/2016) - DMLs 5.2R 4.4L. Labs - A1c=6.[address] release R (07/2017, [facility]). Failed CONTRA - inj (DM). Physical Exam - General appearance, mentation, extraocular movements, facial strength and movement, hearing, upper and lower extremity strength and tone, sensation to gross testing, coordination, and gait are normalor at baseline unless noted below. HEENT - ___, unchanged: Tongue very large ... Mallampati IV, orig: ___ MS - ___, unchanged: ___, orig: ___ CNN - ___, unchanged: ___, orig: ___ Motor - ___, unchanged: Epidemiology Internship 4B ... APB 4R 4+L, orig: ___ Sens - ___, unchanged: Tinel +R ... Vibr, temp loss distal LEs ... NO hyperpathia, allodynia, orig:___ Reflex - ___, unchanged: AJ 0B, orig: KJ 1B Coord - ___, unchanged: Romberg 1+, orig: ___ Gait - ___, unchanged: Wide, quite atactic ... Tandem 3+, orig: ___ Vestib - ___, unchanged: ___, orig: ___ MSK - Spasm - Tr C sev L mod, unchanged: ___, orig: ___ Other - ___, unchanged: ___, orig: ___ Vital Signs - Visit Vitals BP 107/74 Pulse 62 Ht 5' 7 Wt 200 lb BMI 31.32 kg/m Smoking Status Every Day BSA 2.07 m Review of Systems - . Const: Denies appetite change, fever, chills. Allergy: Denies medication reaction. Ocular: Denies visual acuity change. ENT: Denies hearing change. Endoc: Denies weight loss. Resp: Denies dyspnoea, wheezing. Cardiac: Denies angina, palpitations. GI: Denies nausea, vomiting. Haem: Denies bleeding. : Denies incontinence. MSK: Denies arthralgias, joint oedema. Derm: Denies rash, hair loss. Neuro: Denies ataxia, tremor. Also see HPI for elements of ROS documented therein and for details of positive findings, which shall supersede the foregoing. PMH, PSH, Allergies, FH, SH - Past Medical History: Diagnosis Date Abnormal Pap smear of cervix hpv positive COVID-19 Diabetes (CMS/HCC) Fibromyalgia High cholesterol (CMS/HCC) History of medical problems ulcer HTN (hypertension) (CMS/HCC) Neuropathy Rheumatoid arthritis (CMS/HCC) Scarlet fever Stomach ulcer Tonsillitis Past Surgical History: Procedure Laterality Date BIOPSY 04/2020 vulvar CARPAL TUNNEL RELEASE Right 2018 COLPOSCOPY 01/21/2017 COLPOSCOPY 09/2018 COLPOSCOPY 10/2019 COLPOSCOPY 09/2021 ESOPHAGEAL DILATION HYSTERECTOMY PARTIAL HYSTERECTOMY NE VULVECTOMY SIMPLE PARTIAL 12/2018 TONSILLECTOMY VULVECTOMY 12/2017 Allergies Allergen Reactions Sulfa Antibiotics GI intolerance and Unknown Family History Problem Relation Name Age of Onset Hypertension Mother Heart disease Mother Stroke Mother Stroke Father Heart disease Father Cancer Father Bipolar disorder Sister Diabetes Sibling Mental illness Daughter Diabetes Son Outpatient Encounter Medications as of 01/07/2024 Medication Sig Dispense Refill aspirin 81 MG EC tablet Take 81 mg by mouth in the morning. Continuous Blood Gluc Sensor (eLearning Connectionsyle Brent 14 Day Sensor) [facility] apply 1 SENSOR as directed every 14 days use with DEVICE to MONIT... (REFER TO PRESCRIPTION NOTES). cyanocobalamin (Vitamin B-12) 2500 MCG tablet Docusate Sodium (DSS) 100 MG capsule Take 100 mg by mouth in the morning and 100 mg in the evening. Droplet Pen Webster 32G X [address] [facility] use 1 PEN NEEDLE to inject MEDICATION subcutaneously five timesa day Eliquis 5 MG tablet Take 5 mg by mouth in the morning and 5 mg before bedtime. folic acid (Folvite) 1 MG tablet Take 1,000 mcg by mouth Daily Jardiance 25 MG take 1 tablet orally once daily magnesium oxide (Mag-Ox) 400 (240 Mg) MG tablet Take 400 mg by mouth in the morning and 400 mg before bedtime. metFORMIN (Glucophage) 500 MG tablet Take 500 mg by mouth metoprolol succinate XL (Toprol-XL) 50 MG 24 hr tablet Take 50 mg by mouth in the morning and 50 mgin the evening. nortriptyline (Pamelor) 50 MG capsule omeprazole (PriLOSEC) [address] capsule Ozempic, 1 MG/DOSE, 4 MG/3ML solution pen-injector Administer 1mg subcutaneously once weekly pioglitazone (Actos) 15 MG tablet Take 15 mg by mouth at bedtime pregabalin (Lyrica) 150 MG capsule TAKE 1 CAPSULE BY MOUTH TWICE A DAY 60 capsule 3 simvastatin (Zocor) 20 MG tablet Take 20 mg by mouth at bedtime. temazepam (Restoril) 30 MG capsule take 1 capsule by mouth at bedtime if needed Toujeo SoloStar 300 UNIT/ML injection inject 20 units subcutaneously as directed [DISCONTINUED] doxycycline (Vibramycin) 100 MG capsule take 1 capsule by mouth once daily for 10 days [DISCONTINUED] lisinopril 5 MG tablet Take 5 mg by mouth in the morning. No facility-administered encounter medications on file as of 01/07/2024. Oz Kincaid M.D. documented in this encounterSaint Luke's [facility] Hospital–[id number] History of Present illness Narrative* Karl Fritz DPM - 01/07/2024 9:45 AM EDT Images from the original note were not included. HPI: New problem today - ulcer RT foot plantar 1st met. Patient is a diabetic HPI: Patient presents today complaining of an ulcer on the plantar 1st met right foot. They have noticedthis for the past month (10/2023). Patient has pain with walking and standing due to this lesion. Patient has tried [facility] for treatment, x-ray, antibiotic, (not taking d/t [...] evidence of dried callous sub 1st MPJ right HYPERKERATOSIS: Location: sub 1st MPJ right NAIL [...] foot Cellulitis right foot Treatment Note: 1. Ulceration to the right foot was evaluated at today's visit. 2. Wound debridement was performed of the ulceration site. As patient has full neuropathy, there isno need for local anesthesia. I did excise nonviable tissue, callus, skin, and slough of ulcerationsite. This was performed with a tissue nipper and 15 blade and will be one of possibly staged series of ulceration and debridements on a weekly basis pending medical necessity. Pedal pain was none. Hemostasis was obtained with pressure. Culture was obtained to the right foot ulceration site. 3. Saline flush to the ulceration site, followed by Amerigel and dry dressing. Patient was advised to perform daily dressing changes to the ulceration site until healed. 4. Patient advised not to submerge foot underwater until ulcer is completely healed. Patient shouldspongebathe the foot only in all unopen areas. 5. Patient was instructed on continued dressing changes to the ulceration site with sean vega. She does have C and updated orders will be sent. They should continue with use of the surgical shoe for offloading/pressure reduction. Continue with use of the antibiotics prescribed in the ER. 6. Patient was advised if they notice any worsening to the ulceration site including signs of infection, N/F/V/C to call the office for an urgent appointment or go to the nearest emergency room. 7. RTC: 2 weeks. documented in this encounterSaint Luke's [facility] Hospital–Sm[id number] History of Present illness Narrative* Oz Kincaid MD - 01/03/2024 4:45 PM EDT Images from the original note were not included. Procedure - Therapeutic injection, Carpal Tunnel Indication Carpal tunnel syndrome Identification The patient was positively identified by name and date of . Consent The procedure was explained to the patient. This included indications; possible complications, including at least bleeding, infection, and ; and ill effects from not undergoing the procedure, including at least inadequate treatment and all possible complications therefrom. Informed consent forthe procedure was obtained and witnessed. Medication, per site ketorolac 15 mg (0.5 mL) + lidocaine 1-2% 0.3 mL Site Prep The wrist(s) was(were) sterilized with 70% isopropanol. Anaesthesia Ethyl chloride or equivalent local anaesthesia was used, per patient preference.. Procedure After identifying the palmaris tendon, the medication was injected via tuberculin syringe into the region of both carpal tunnel(s). Post-procedure Light pressure was maintained to stop any bleeding. A sterile dressing was applied. Outcome The patient tolerated the procedure well, without evident complications.. Patient Instructions The patient was instructed to return should any bleeding or fluid be seen from the puncture site; for fever; numbness; weakness; or any other unexpected symptoms. Assessment Carpal tunnel syndrome - bilateral - G56.03 Follow Up as previously arranged Oz Kincaid M.D. documented in this encounterSaint Luke's North Hospital–SmithvilleAkgyshksoq09-15-9909 History of Present illness Narrative* Thuan Wise MD - 12/16/2023 10:30 AM EDT Subjective Taye Gay is a 68 y.o. 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 She report few months back she developed severe weakness and actually was in the hospital and was seen by neurology and no clear etiology was found but ultimately she decided to quit amiodarone and felt much better since then. She remained in sinus rhythm. She denies complaint of chest pain, palpitation, lightheadedness, dizziness or syncope. She does have history of LV systolic dysfunction but apparently improved after cardioversion. She is currently feeling better Assessment 1. Atrial flutter with prior cardioversion. She was on amiodarone but discontinued due to side effect 2. Intolerance to amiodarone due to extreme weakness 3. Long-term anticoagulation 4. History of nonischemic cardiomyopathy improved last echocardiogram showed normal LV systolic function. No previous stress test was done but the patient denies any anginal symptoms 5. Hypertension controlled 5. Hyperlipidemia 6. Tobacco use 7. Diabetes mellitus 8. Obesity with BMI of 30 Plan 1. Patient EKG today shows she is in sinus rhythm. I recommended continue with observant approach. If she had any recurrence in the future would consider ablation versus sotalol or Tikosyn 2. We discussed risk factor modification 3. Risk, benefit and alternative anticoagulation reviewed with patient at length she understood andagreed 4. I will see her back in 6 months with an EKG 5. Advised her to notify us if she develop any recurrence of her arrhythmia Review of Systems All other systems reviewed and are negative. Vitals: 12/16/23 1040 BP: 102/64 BP Location: Left arm Patient Position: Sitting Pulse: 73 Weight: 88.3 kg (194 lb 9.6 oz) Height: 1.702 m (5' 7 ) EKG done in office today Objective Physical Exam Constitutional: Appearance: Normal appearance. [...] by mouth 2 times a day., Disp: 180 tablet, Rfl: 3 aspirin 81 mg EC tablet, Take 1 tablet (81 mg) by mouth once daily., Disp: , Rfl: docusate sodium (Colace) 100 mg capsule, Take 1 capsule (100 mg) by mouth 2 times a day., Disp: , Rfl: empagliflozin (Jardiance) 25 mg, Take 1 tablet (25 mg) by mouth once daily., Disp: , Rfl: folic acid (Folvite) 1 mg tablet, 1 tablet (1 mg) once daily., Disp: , Rfl: HumaLOG KwikPen Insulin 100 unit/mL injection, inject subcutaneously before meals and at bedtime 1:50 CORRECTIVE SCALE (EXPECT UP TO 20 UNITS/DAY, Disp: , Rfl: insulin glargine (Toujeo Solostar- 1 unit dial) 300 unit/mL (1.5 mL) injection, 20 Units., Disp: , Rfl: magnesium oxide (Mag-Ox) 400 mg tablet, Take 1 tablet (400 mg) by mouth once daily. (Patient takingdifferently: Take 1 tablet (400 mg) by mouth 2 times a day.), Disp: 90 tablet, Rfl: 3 metFORMIN (Glucophage) 500 mg tablet, Take 1 tablet (500 mg) by mouth 2 times daily (morning and late afternoon)., Disp: , Rfl: metoprolol succinate XL (Toprol-XL) 50 mg 24 hr tablet, Take 1 tablet (50 mg) by mouth 3 times a day. Do not crush or chew. (Patient taking differently: Take 1 tablet (50 mg) by mouth 2 times a day. Do not crush or chew.), Disp: 90 tablet, Rfl: 5 omeprazole (PriLOSEC) [address] capsule, Take [...] by mouth once daily at bedtime., Disp: 90 tablet, Rfl: 3 temazepam (Restoril) 30 mg capsule, Take 1 capsule (30 mg) by mouth 1 time., Disp: , Rfl: Assessment/Plan 1. High risk medication use 2. Typical atrial flutter (Multi) Follow Up In Cardiology ECG 12 Lead 3. Nonischemic cardiomyopathy (Multi) Follow Up In Cardiology 4. Hypercholesteremia 5. BMI 28.0-28.9,adult 6. BMI 30.0-30.9,adult 7. Current smoker Scribe Attestation By signing my name below, I, Ernesto Toledo LPN attest that this documentation has been prepared under the direction and in the presence of MD Candy. Provider Attestation - Scribe documentation All medical record entries made by the Scribe were at my direction and personally dictated by me. Ihave reviewed the chart and agree that the record accurately reflects my personal performance of the history, physical exam, discussion and plan. documented in this [facility] Work Phone: [phone]) 873-801308-19-2024 Instructions* Patient Instructions* Sofie Dean LPN - 12/16/2023 10:30 AM EDT Please bring all medicines, vitamins, and herbal supplements with you when you come to the office. Prescriptions will not be filled unless you are compliant with your follow up appointments or have a follow up appointment scheduled as per instruction of your physician. Refills should be requested at the time of your visit. BMI was above normal measurement. Current weight: 88.3 kg (194 lb 9.6 oz) Weight change since last visit (-) denotes wt loss 4.6 lbs Weight loss needed to achieve BMI 25: 35.3 Lbs Weight loss needed to achieve BMI 30: 3.5 Lbs Advised to Increase physical activity. documented in this [facility] Work Phone: [phone] 196-256707-17-2024 History of Present illness Narrative* Jonas Ch MD - 11/13/2023 2:00 PM EDT Subjective aTye Gay is a 67 y.o. female Chief Complaint Follow-up HPI Patient returns in follow-up of recent cardioversion. Restoring sinus rhythm was successful. Follow-up echocardiogram, performed yesterday, demonstrates normalization of ejection fraction because of this the importance of maintaining sinus rhythm was discussed and explained. I advised her that for the time being we will continue as is but cut amiodarone to once a day. Other medicines will continue as is. Additional medications are not an option because of low blood pressure. We discussed other arrhythmia management options. They include amiodarone chronically, transition to a different agent such as Tikosyn, or ablation. The concept and timing as well as priorities of each strategy were explained in detail and I encouraged him to discuss these options and alternatives with subsequent caregivers. We discussed amiodarone testing. It has not been done yet. Somebody ordered a thyroid function and her TSH is elevated. I advised him of never seen this happen within a month of starting amiodarone and I am doubtful that it is related and encouraged him to wait and see what other thyroid testing proves abnormal. A variety of other testing is being performed. There were educated regarding heart failure symptoms as well as those of arrhythmia to watch for. We reviewed other matters and it appears that cholesterol and blood pressure are adequately controlled. The reason and rationale for amiodarone testing and high risk medication use was explained. She continues to smoke and cessation was advocated as was that of a modest diet and weight loss. Vitals: 11/13/23 1354 BP: 108/70 BP Location: Left arm Patient Position: Sitting Pulse: 87 Weight: 81.6 kg (180 lb) Height: 1.702 m (5' 7 ) EKG done in office today Objective Physical Exam Constitutional: Appearance: Normal appearance. [...] (sulfonamide antibiotics) Current Medications Current Outpatient Medications: amiodarone (Pacerone) 200 mg tablet, Take 1 tablet (200 mg) by mouth 2 times a day., Disp: 180 tablet, Rfl: 3 apixaban (Eliquis) 5 mg tablet, Take 1 tablet (5 mg) by mouth 2 times a day., Disp: 180 tablet, Rfl: 3 aspirin 81 mg EC tablet, Take 1 tablet (81 mg) by mouth once daily., Disp: , Rfl: docusate sodium (Colace) 100 mg capsule, Take 1 capsule (100 mg) by mouth 2 times a day., Disp: , Rfl: empagliflozin (Jardiance) 25 mg, Take 1 tablet (25 mg) by mouth once daily., Disp: , Rfl: folic acid (Folvite) 1 mg tablet, 1 tablet (1 mg) once daily., Disp: , Rfl: HumaLOG KwikPen Insulin 100 unit/mL injection, inject subcutaneously before meals and at bedtime 1:50 CORRECTIVE SCALE (EXPECT UP TO 20 UNITS/DAY, Disp: , Rfl: insulin glargine (Toujeo Solostar- 1 unit dial) 300 unit/mL (1.5 mL) injection, 20 Units., Disp: , Rfl: magnesium oxide (Mag-Ox) 400 mg tablet, Take 1 tablet (400 mg) by mouth once daily., Disp: 90 tablet, Rfl: 3 metFORMIN (Glucophage) 500 mg tablet, Take 1 tablet (500 mg) by mouth 2 times daily (morning and late afternoon)., Disp: , Rfl: metoprolol succinate XL (Toprol-XL) 50 mg 24 hr tablet, Take 1 tablet (50 mg) by mouth 3 times a day. Do not crush or chew., Disp: 90 tablet, Rfl: 5 nortriptyline (Pamelor) 50 mg capsule, Take 2 [...] by mouth once daily at bedtime., Disp: 90 tablet, Rfl: 3 temazepam (Restoril) 30 mg capsule, Take 1 capsule (30 mg) by mouth 1 time., Disp: , Rfl: Assessment/Plan 1. Typical atrial flutter (Multi) Restored to sinus rhythm with normalization of ejection fraction. Important to maintain sinus rhythm. - Follow Up In Cardiology 2. Nonischemic cardiomyopathy (Multi) Resolved with restorationist of sinus rhythm 3. Hypercholesteremia Review of treatment strategy demonstrates acceptable control 4. Primary hypertension Acceptable control based upon review 5. Current smoker Cessation advocated 6. BMI 28.0-28.9,adult Diet advocated 7. High risk medication use Amiodarone testing explained and will be initiated. Scribe Attestation By signing my name below, I, Dakota Barraza RN , Scribe attest that this documentation has been prepared [...] exam, discussion and plan. documented in this encounterUniversity [facility]als [facility] Work Phone: [phone] Instructions* Patient Instructions* Dakota Barraza RN - 11/13/2023 2:00 PM EDT Please bring all medicines, vitamins, and herbal supplements with you when you come to the office. Prescriptions will not be filled unless you are compliant with your follow up appointments or have a follow up appointment scheduled as per instruction of your physician. Refills should be requested at the time of your visit. Fall Prevention Education Given BMI was above normal measurement. Current weight: 81.6 kg (180 lb) Weight change since last visit (-) denotes wt loss 0 lbs Weight loss needed to achieve BMI 25: 20.7 Lbs Weight loss needed to achieve BMI 30: -11.1 Lbs Advised to Increase physical activity documented in this encounterUniversity Hospitals [facility] Work Phone: [phone] 934-103807-15-2024 Progress note Author Chaka Frye [facility] November 11, 2023 4:15pm Note Date/Time November 11, 2023 4:15 pm [facility] [address] [place] [address] Hospitalist Progress Note Signed Patient: Taye Gay MR#: [id number] : 1955 Acct:[id number] Age/Sex: 67 / F Adm Date: 4 Loc: 4N Room: 6V7655-7 Type: ADM IN Attending Dr: Chaka Frye [...] at home. ? Recently had a positive BEATRICE with her neurologist Dr. Kincaid adenomas ? [...] <Electronically signed by Chaka Frye MD> 11/11/23 0810 [facility] Work Phone: [phone] 779-504307-15-2024 Consult note Author Lit Clark [facility] November 11, 2023 3:11pm Note Date/Time November 11, 2023 10:4 3am [facility] [address] [place] [address] Neurology Consult Note Signed Patient: Taye Gay MR#: [id number] : 1955 Acct:[id number] Age/Sex: 67 / F Adm Date: 4 Loc: 4N Room: [address] [place] [address] Type: ADM IN Attending Dr: Chaka Frye MD Copies to: DO Geraldo Garrido MD, RES MD Sandra Mar, ~ HPI Consult Date: 11/11/23 High Lead Yarder: Geraldo Vo MD, RES Reason for consult: Progressive generalized weakness Consult Narrative HPI: Taye Gay is a 67 y.o. female with a PMH of esophageal stricture, cigarette smoker, GERD, HTN, type 2 diabetes mellitus, HLD, CKD stage G2/A2, peripheral neuropathy and vit B12 deficiency who presented to [facility] on 11/10/23 for concerns regarding generalized weakness. Neurology was consulted for evaluation of generalized weakness. Additional HPI is noted in Assessment and Plan. [facility] Medical History History of esophageal stricture BMI [...] Father Heart disease History of stroke [facility] Problem: Diagnosed with Stroke Cancer throat heart [...] Confirmed 11/09/23] pen needle, diabetic [Sure-Fine Pen Webster] 06/12/23 [History Confirmed 11/09/23] omeprazole 20 mg capsule,delayed release See Rx Instructions .Route .COMPLEX #90caps 07/01/23 [Rx Confirmed 11/09/23] flash glucose sensor (FreeStyle Brent 14 Day Sensor kit) #2 ea 07/22/23 [...] Oz Bowling M.D.11/10/2023 1:15 PM Dictation Location: [place] [address] Therapy Recommendations Therapy Recommendations: OT Recommendations OT Recommended Discharge Half-Way Facility Location OT Recommended Services at Physical Therapy,Occupational Therapy Discharge PT Recommendations PT Recommended Discharge Half-Way Facility Location PT Recommended Services at Physical Therapy,Occupational Therapy Discharge Assessment/Plan (1) Ambulatory dysfunction: (2) Weakness: (3) Hypothyroid: Qualifiers: Hypothyroidism type: unspecified Qualified Code(s): E03.9 - Hypothyroidism, unspecified (4) Hypomagnesemia: (5) Type 2 diabetes mellitus with hyperglycemia: Qualifiers: 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 female with a PMH of esophageal stricture, cigarette smoker, GERD, HTN, type 2 diabetes mellitus, HLD, CKD stage G2/A2, peripheral neuropathy and vit B12 deficiency who presented to [facility] on 11/10/23 for concerns regarding generalized weakness. [...] by daughter, the tests were positive for BEATRICE, the majority of the testswere negative, but [...] <Electronically signed by MD GAGE Vo> 11/11/23 1049 [facility] Work Phone: 1(178) 801-771407-14-2024 Progress note Author Kirt Renae [facility] November 10, 2023 12:24pm Note Date/Time November 10, 2023 12:0 0pm [facility] [address] [place] [address] Hospitalist Progress Note Signed Patient: Taye Gay MR#: [id number] : 1955 Acct:[id number] Age/Sex: 67 / F Adm Date: 4 Loc: 4N Room: 6Y4882-0 Type: ADM IN Attending Dr: Kirt Renae [...] 11/10/23 09:00 11/10/23 08:45 Aspirin 81 Mg Tablet.Dr PO 11/09/24 08:59 81 mg DAILY PARMJIT [...] at home. ? Recently had a positive BEATRICE with her neurologist Dr. Kincaid adenomas ? [...] out Polymyalgia rheumatica Recent history of positive BEATRICE hx of atrial fibrillation s/p cardioversion earlier this month, on AC -Obtain Free T4 and T3, and anti-TPO antibodies -Obtain ESR and CRP -Obtain anti Sushma, Anti MILITARY EDUCATION COORDINATOR, anti dsDNA -Obtain CT head without contrast [...] code Documented By: Kirt Renae MD 11/10/23 1157 Signed By: <Electronically signed by Kirt Renae MD> 11/10/23 1220 [facility] Work Phone: 1(415) 499-775907-14-2024 History and physical note Author Jluis Campos [facility] November 10, 2023 6:20am Note Date/Time November 10, 2023 6:11 am [facility] [address] [place] [address] Hospitalist H&P Signed Patient: Taye Gay MR#: [id number] : 1955 Acct:[id number] Age/Sex: 67 / F Adm Date: 4 Loc: 4N Room: [id number] Type: ADM IN Attending Dr: Jluis Campos [...] muscles were getting smaller and suddenly Saturday morning when she tried to stand up her leg started shaking severely and she was unable to stand, she had 2 falls at home. She denies hitting her head. She did see a neurologist for this I believe she said the date was October 29, a battery of tests were performed including BEATRICE which was positive, and it appears that [...] negative unless noted below or in HPI [facility] Medical History History of esophageal stricture BMI [...] History Father Heart disease [facility]: Diagnosed with Stroke Cancer throat heart [...] Confirmed 11/09/23] pen needle, diabetic [Sure-Fine Pen Webster] 06/12/23 [History Confirmed 11/09/23] omeprazole 20 mg capsule,delayed release See Rx Instructions .Route .COMPLEX #90caps 07/01/23 [Rx Confirmed 11/09/23] flash glucose sensor (FreeStyle Brent 14 Day Sensor kit) #2 ea 07/22/23 [...] weaknesses were noted, patient unable to ambulate. Bitg-ee-rbeg test was normal. No tremors or ataxia with cfbzxr-ys-spdt movements. Neuro: AOx3, CN II-VII intact. Moves [...] % (Auto) 26.0 % (.) 11/10/23 03:41 [place] % (Auto) 8.2 % (.) 11/10/23 03:41 Eos % (Auto) 3.7 % (.) 11/10/23 03:41 Baso % (Auto) 0.9 % (.) 11/10/23 03:41 Nucleat RBC Rel Count 0.1 /100 WBC (0-0.5) 11/10/23 03:41 Neut # (Auto) 5.2 x10E3/uL (1.8-7.7) 11/10/23 03:41 Lymph # (Auto) 2.2 x10E3/uL (1.00-4.8) 11/10/23 03:41 [place] # (Auto) 0.7 x10E3/uL (0.0-0.8) 11/10/23 03:41 [...] pH 6.0 (5.0-9.0) 11/10/23 05:02 Ur Specific [place] 1.007 (1.001-1.030) 11/10/23 05:02 Urine Protein Negative [...] at home. ? Recently had a positive BEATRICE with her neurologist Dr. Kincaid adenomas ? [...] days): 3 Documented By: Jluis Campos DO 11/10/23606 Signed By: <Electronically signed by Jluis Campos DO> 11/10/23619 [facility] Work Phone: 1(622) 388-701807-09-2024 [facility] History of Present illness Narrative* Jonas Ch MD - 10/07/2023 9:40 AM EDT Subjective Taye Gay is a 67 y.o. female Chief [...] to make adjustments and amiodarone before my prison. Vitals: 10/07/23 0948 BP: 114/90 BP Location: [...] mellitus with other specified complication, unspecified whether penitentiary insulin use (Multi) Managed by other providers 7. BMI 28.0-28.9,adult The merits of diet and weight loss were advocated Scribe Attestation By signing my name below, ISofie LPN , Scribe attest that this documentation has been prepared [...] exam, discussion and plan. [facility] Work Phone: 1(535) 630-525906-10-2024 Instructions* Patient Instructions* Cary Mcdonnell RN - [...] Fall Prevention Education Given documented in [facility] encounterUniversity [facility] Work Phone: 1(233) 980-501605-18-2024 Progress note Author Faraz Gilliam [facility] September 14, 2023 1:34pm Note Date/Time September 14, 2023 1:26p [facility] [address] [place] [address] Cardiology Progress Note Signed Patient: Taye Gay MR#: [id number] : 1955 Acct:[id number] Age/Sex: 67 / F Adm Date: 4 Loc: Room: [address] [place] [address] Type: ADM IN Attending Dr: Elva Florian [...] signed by Faraz Gilliam MD> 09/14/23 1334 [facility] Work Phone: 1([phone]) 437-712805-18-2024 Progress note Author Elva Florian [facility] September 14, 2023 2:03am Note Date/Time September 13, 2023 6:15p m [facility] [address] [place] [address] Hospitalist Progress Note Signed Patient: Taye Gay MR#: [id number] : 1955 Acct:[id number] Age/Sex: 67 / F Adm Date: 4 Loc: 3T Room: [address] [place] [address] Type: ADM IN Attending Dr: Elva Florian [...] Tablet PO 09/12/24 08:59 1 mg DAILY [facility] Administration Glucose 0 gm 09/12/23 20:04 Dextrose 40% Gel 15 Gm Tube PO 09/11/24 20:03 PRN PRN Hypoglycemia Insulin Aspart 0 units 09/12/23 22:00 09/13/23 16:24 Insulin Aspart 300 Units/3 Ml Insuln.Pen SUBCUT 09/11/24 21:59 Not Given TID.WM.HS [facility] Protocol Insulin Glargine 20 units 09/13/23 09:00 09/13/23 08:40 Insulin Glargine 300 Units/3 Ml Insuln.Pen SUBCUT 09/12/24 08:59 20 units DAILY [facility] Administration Metoprolol Succinate 50 mg 09/14/23 09:00 Metoprolol Succinate 50 Mg Tab.Er.24h PO 09/13/24 08:59 DAILY [facility] Metoprolol Tartrate 5 mg 09/12/23 20:04 09/13/23 16:47 Metoprolol Tartrate 5 Mg/5 Ml Vial IV-PUSH 09/11/24 20:03 5 mg Q4H PRN Administration Hypertension Nortriptyline HCl 100 mg 09/13/23 09:00 09/13/23 08:37 Nortriptyline 25 Mg Capsule PO 09/12/24 08:59 100 mg DAILY [facility] Administration Ondansetron HCl 4 mg 09/12/23 19:59 [...] 15 Mg Capsule PO 03/11/24 21:59 QHS PARMJIT A&P - Hospitalist Assessment/Plan (1) New onset atrial flutter: (2) Atrial flutter with rapid ventricular response: (3) Type 2 diabetes mellitus: (4) Hyperlipidemia: (5) Hypertension: Plan Documented By: Elva Florian MD 09/13/23 1809 Signed By: <Electronically signed by Elva Florian MD> 09/14/23 020 [facility] Work Phone: [phone]) 475-789705-17-2024 Consult note Author Jonas Ch [facility] September 13, 2023 12:25pm Note Date/Time September 13, 2023 12:26 pm [facility] [address] [place] [address] Cardiology Consult Note Signed Patient: Taye Gay MR#: [id number] : 1955 Acct:[id number] Age/Sex: 67 / F Adm Date: 4 Loc: Room: [address] [place] [address] Type: ADM INOo Attending Dr: Elva Florian MD Copies to: DO Elva Daniels MD William Patrick McGuinn, MD~ Cardiology HPI History of Present Illness [...] and no additional complaints, except as documented [facility] Medical History History of esophageal stricture BMI [...] [History Confirmed 09/12/23] flash glucose sensor [FreeStyle Brent 14 Day Sensor] 06/12/23 [History Confirmed 09/12/23] insulin glargine U-300 conc 300 unit/mL (1.5 mL) subcutaneous pen (Toujeo SoloStar U-300 Insulin) 20 unit subcut DAILY 06/12/23 [History Confirmed 09/12/23] insulin lispro 100 unit/mL subcutaneous pen See Rx Instructions subcut ACHS 06/12/23 [History Confirmed 09/12/23] multivitamin 1 tab PO DAILY 06/12/23 [History Confirmed 09/12/23] pen needle, diabetic [Sure-Fine Pen Webster] 06/12/23 [History Confirmed 09/12/23] nortriptyline 50 mg capsule 100 mg PO DAILY 06/18/23 [History Confirmed 09/12/23] omeprazole 20 mg capsule,delayed release See Rx Instructions .Route .COMPLEX #90caps 07/01/23 [Rx Confirmed 09/12/23] flash glucose sensor (FreeStyle Brent 14 Day Sensor kit) #2 ea 07/22/23 [...] x10E3/uL Lymph # (Auto) 2.0 (1.00-4.8) x10E3/uL [place] # (Auto) 0.6 (0.0-0.8) x10E3/uL Eos # [...] ml @ 999 mls/hr IV .Q1H1M ONE Rx#:[id number] Oral 50 / 50 Output: Urine 600 [...] make arrangements for follow-up thereafter. Documented By: Jonas Ch MD 1221 Signed By: <Electronically signed by MD Jonas Ch> 09/13/23 7295 [facility] Work Phone: 1(476) 144-373405-17-2024 History and physical note Author Elva Florian [facility] September 13, 2023 2:09am Note Date/Time September 12, 2023 7:53p m [facility] [address] [place] [address] Hospitalist H&P Signed Patient: Taye Gay MR#: [id number] : 1955 Acct:[id number] Age/Sex: 67 / F Adm Date: 4 Loc: Room: [address] [place] [address] Type: ADM INOo Attending Dr: Elva Florian [...] care Discussed with:?the medical team, the patient [facility] Medical History History of esophageal stricture BMI [...] [History Confirmed 09/12/23] flash glucose sensor [FreeStyle Brent 14 Day Sensor] 06/12/23 [History Confirmed 09/12/23] insulin glargine U-300 conc 300 unit/mL (1.5 mL) subcutaneous pen (Toujeo SoloStar U-300 Insulin) 20 unit subcut DAILY 06/12/23 [History Confirmed 09/12/23] insulin lispro 100 unit/mL subcutaneous pen See Rx Instructions subcut ACHS 06/12/23 [History Confirmed 09/12/23] multivitamin 1 tab PO DAILY 06/12/23 [History Confirmed 09/12/23] pen needle, diabetic [Sure-Fine Pen Webster] 06/12/23 [History Confirmed 09/12/23] nortriptyline 50 mg capsule 100 mg PO DAILY 06/18/23 [History Confirmed 09/12/23] omeprazole 20 mg capsule,delayed release See Rx Instructions .Route .COMPLEX #90caps 07/01/23 [Rx Confirmed 09/12/23] flash glucose sensor (FreeStyle Brent 14 Day Sensor kit) #2 ea 07/22/23 [...] % (Auto) 20.2 % (.) 09/12/23 14:51 [place] % (Auto) 5.9 % (.) 09/12/23 14:51 Eos % (Auto) 1.7 % (.) 09/12/23 14:51 Baso % (Auto) 0.9 % (.) 09/12/23 14:51 Nucleat RBC Rel Count 0.2 /100 WBC (0-0.5) 09/12/23 14:51 Neut # (Auto) 7.0 x10E3/uL (1.8-7.7) 09/12/23 14:51 Lymph # (Auto) 2.0 x10E3/uL (1.00-4.8) 09/12/23 14:51 [place] # (Auto) 0.6 x10E3/uL (0.0-0.8) 09/12/23 14:51 [...] By: <Electronically signed by Elva Florian MD> 09/13/23 0209 [facility] Work Phone: [phone]) 332-499802-12-2024 Evaluation note* Encounter Date Diagnosis Assessment Notes Treatment Notes Treatment Clinical Notes May, Type 2 diabetes mellitus with hyperglycemia (ICD-10 - E11.65) [employer] Other 01-23-2024 Evaluation note* Encounter Date Diagnosis Assessment Notes Treatment Notes Treatment Clinical Notes Apr, Primary insomnia (ICD-10 - F51.01) [employer] Other 12-11-2023 Evaluation note* Encounter Date Diagnosis Assessment Notes Treatment Notes Treatment Clinical Notes Mar, Type 2 diabetes mellitus with hyperglycemia (ICD-10 - E11.65) [employer] Other 11-06-2023 Evaluation note* Encounter Date Diagnosis [...] Discussed can start famotidine PRN breakthrough GERD [employer] Other 10-02-2023 Evaluation note* Encounter Date Diagnosis Assessment Notes Treatment Notes Treatment Clinical Notes Jan, Primary insomnia (ICD-10 - F51.01) [employer] Other 09-11-2023 Evaluation note* Encounter Date Diagnosis Assessment Notes Treatment Notes Treatment Clinical Notes Dec, Type 2 diabetes mellitus with hyperglycemia (ICD-10 - E11.65) Managing type 2 diabetes material was published 1. Controlled, Type 2 diabetes with A1c 6.3% 2. Blood glucose levels improved. According to [employer] cgm download 12/25/2022- 3: Avg glucose 156. 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) [...] to make it easier material was published [employer] Other 09-06-2023 Evaluation note* Encounter Date Diagnosis Assessment Notes Treatment Notes Treatment Clinical Notes Dec, Esophageal stricture (ICD-10 - K22.2) Dec, Dysphagia (ICD-10 - R13.10) Patient has a narrow esophagus but is improving Patient is to continue omeprazole daily [employer] Other 09-01-2023 Evaluation note* Encounter Date Diagnosis Assessment Notes Treatment Notes Treatment Clinical Notes Dec, Primary insomnia (ICD-10 - F51.01) [employer] Other 08-22-2023 Evaluation note* Encounter Date Diagnosis Assessment Notes Treatment Notes Treatment Clinical Notes Nov, Primary insomnia (ICD-10 - F51.01) [employer] Other 08-02-2023 Evaluation note* Encounter Date Diagnosis [...] ]. The above visit was performed by Lorne STANTONCC under direct supervision of Dr. Sandra Keita DO. Document reviewed and amended by provider signed below. [employer] Other 07-11-2023 Evaluation note* Encounter Date Diagnosis Assessment Notes Treatment Notes Treatment Clinical Notes Oct, Primary insomnia (ICD-10 - F51.01) [employer] Other 06-01-2023 Evaluation note* Encounter Date Diagnosis Assessment Notes Treatment Notes Treatment Clinical Notes Sep, Type 2 diabetes mellitus with hyperglycemia (ICD-10 - E11.65) Managing type 2 diabetes material was published 1. Controlled, Type 2 diabetes with A1c 6.6% 2. Blood glucose levels improved. According to [employer] cgm download 09/13/2022- 3: Avg glucose 151. [...] hyperglycemia, or diabetes medication issues. 6. Prescriptions: DEISY AMATO: None at this time. 7. 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) Sep, Peripheral neuropathy (ICD-10 - G62.9) Living with peripheral neuropathy material was published Sep, Vitamin B 12 deficiency (ICD-10 - E53.8) Good food sources of vitamin B12 material was published 08/2022 Vit b12 392 at target Sep, BMI 29.0-29.9,adult (ICD-10 - Z68.29) Eating healthy: tips to make it easier material was published [employer] Other 05-15-2023 Evaluation note* Encounter Date Diagnosis Assessment Notes Treatment Notes Treatment Clinical Notes August, Primary hypertension (ICD-10 - I10) August, Type 2 diabetes mellitus with hyperglycemia (ICD-10 - E11.65) [employer] Other 04-13-2023 Evaluation note* Encounter Date Diagnosis [...] Due for LDCT for lung CA screening [employer] Other 04-10-2023 Evaluation note* Encounter Date Diagnosis Assessment Notes Treatment Notes Treatment Clinical Notes Jul, Primary insomnia (ICD-10 - F51.01) [employer] Other 03-08-2023 Evaluation note* Encounter Date Diagnosis Assessment Notes Treatment Notes Treatment Clinical Notes Jun, Primary insomnia (ICD-10 - F51.01) [employer] Other 02-21-2023 Evaluation note* Encounter Date Diagnosis Assessment Notes Treatment Notes Treatment Clinical Notes May, Type 2 diabetes mellitus with hyperglycemia (ICD-10 - E11.65) [employer] Other 02-20-2023 Evaluation note* Encounter Date Diagnosis Assessment Notes Treatment Notes Treatment Clinical Notes May, Type 2 diabetes mellitus with hyperglycemia (ICD-10 - E11.65) Managing type 2 diabetes material was published 1. Uncontrolled, Type 2 diabetes with A1c 7.1% 2. Blood glucose levels improved. According to [employer] cgm download 06/04/2022-06/17/2022 : Avg glucose 180. [...] to ask: hypertension material was published on [employer] May, prison current use of insulin (ICD-10 - Z79.4) May, Peripheral neuropathy (ICD-10 - G62.9) Living with peripheral neuropathy material was published May, Vitamin B 12 deficiency (ICD-10 - E53.8) Good food sources of vitamin B12 material was published 08/2021 Vit b12 368 at target May, BMI 35.0-35.9,adult (ICD-10 - Z68.35) Setting weight-loss goals material was published [employer] Other 02-06-2023 Evaluation note* Encounter Date Diagnosis Assessment Notes Treatment Notes Treatment Clinical Notes May, Primary insomnia (ICD-10 - F51.01) [employer] Other 01-26-2023 Evaluation note* Encounter Date Diagnosis Assessment Notes Treatment Notes Treatment Clinical Notes Apr, Hyperlipidemia (ICD-10 - E78.5) [employer] Other 12-06-2022 Evaluation note* Encounter Date Diagnosis Assessment Notes Treatment Notes Treatment Clinical Notes Mar, Type 2 diabetes mellitus with hyperglycemia (ICD-10 - E11.65) [employer] Other 10-19-2022 Evaluation note* Encounter Date Diagnosis Assessment Notes Treatment Notes Treatment Clinical Notes Jan, Primary hypertension (ICD-10 - I10) [employer] Other 09-13-2022 Evaluation note* Encounter Date Diagnosis Assessment Notes Treatment Notes Treatment Clinical Notes Dec, Type 2 diabetes mellitus with hyperglycemia (ICD-10 - E11.65) Managing type 2 diabetes material was published 1. Uncontrolled, Type 2 diabetes with A1c 7.7% 2. Blood glucose levels above target. According to [employer] cgm download 12/26/2021- 2: Avg glucose 211. [...] toujeo x1 pen given. Sent order for toubeccao to [facility]. Dec, Dietary counseling and surveillance (ICD-10 - Z71.3) Eat well, exercise well, be well: dietary and fitness guidelines material was published Dec, Hyperlipidemia (ICD-10 - E78.5) Managing your cholesterol material was published 08/2021 ldl 68- at target. 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, prison current use of insulin (ICD-10 - Z79.4) Dec, Peripheral neuropathy (ICD-10 - G62.9) Living with peripheral neuropathy material was published Dec, Vitamin B 12 deficiency (ICD-10 - E53.8) Good food sources of vitamin B12 material was published 08/2021 Vit b12 368 at target Dec, BMI 28.0-28.9,adult (ICD-10 - Z68.28) Healthy eating on a budget material was published 6 pound weight loss from last visit, continue with weight loss efforts [employer] Other 08-17-2022 Progress note Author Walter Montgomery [facility] December 13, 2021 8:52am Note Date/Time December 13, 2021 8: 52am [facility] [address] [place] [address] General Surgery Progress Note Signed Patient: Taye Gay MR#: [id number] : 1955 Acct:[id number] Age/Sex: 66 / F Adm Date: 2 Loc: Room: [address] [place] [address] Type: ADM INOo Attending Dr: Wilmer Vance [...] 12/09/21] insulin lispro 100 unit/mL subcutaneous pen ([employer] SoloStar U-100 Insulin lispro) 1 sliding scale [...] 81 Mg Tablet.) 81 mg PO DAILY [facility] Stop: 12/10/22 08:59 Last Admin: 12/12/21 10:33 Dose: Not Given Atorvastatin Calcium (Atorvastatin 10 Mg Tablet) 10 mg PO DAILY [facility] Stop: 12/10/22 08:59 Last Admin: 12/12/21 10:33 Dose: Not Given Cyanocobalamin (Cyanocobalamin 1,000 Mcg Tablet) 1,000 mcg PO DAILY [facility] Stop: 12/13/22 08:59 Dextrose (Dextrose 50% In Water 25 Gm/50 Ml Syringe) 0 gm IV-PUSH PRN PRN PRN Reason: Hypoglycemia Stop: 12/09/22 11:18 Docusate Sodium (Docusate 100 Mg Capsule) 100 mg PO TID PARMJIT Stop: 12/12/22 21:59 Last Admin: 12/12/21 22:26 [...] 50 mls @ 100 mls/hr IV Q24H [facility] Last Admin: 12/12/21 11:57 Dose: 100 mls/hr Sodium Chloride (0.9% Sodium Chloride 1,000 Ml) 1,000 mls @ 100 mls/hr IV .[id number] Stop: 12/12/22 00:00 Last Infusion: 12/13/21 03:35 Dose: Infused Lactated Ringer's (Lactated Ringers) 1,000 mls @ 20 mls/hr IV .Q24H ONE Stop: 12/13/21 11:13 Last Infusion: 12/13/21 03:31 Dose: Infused Insulin Aspart (Insulin Aspart 300 Units/3 Ml Insuln.Pen) 0 units SUBCUT TID.WM.[facility]; Protocol Stop: 12/09/22 11:59 Last Admin: 12/13/21 08:07 Dose: 4 units Nortriptyline HCl (Nortriptyline 25 Mg Capsule) 50 mg PO BID [facility] Stop: 12/09/22 20:59 Last Admin: 12/12/21 22:27 Dose: 50 mg Omeprazole (Omeprazole 20 Mg Capsule.Dr) 20 mg PO DAILY [facility] Stop: 12/10/22 08:59 Last Admin: 12/12/21 10:33 Dose: Not Given Ondansetron HCl (Ondansetron 4 Mg/2 Ml Vial) 4 mg IV-PUSH Q6H PRN PRN Reason: Nausea And Vomiting Stop: 12/12/22 18:19 Pioglitazone HCl (Pioglitazone 15 Mg Tablet) 15 mg PO DAILY [facility] Stop: 12/10/22 08:59 Last Admin: 12/12/21 [...] 15 Mg Capsule) 30 mg PO QHS [facility] Stop: 12/09/22 21:59 Last Admin: 12/12/21 [...] % (Auto) 90.4, Lymph % (Auto) 7.7, [place] % (Auto) 1.8, Eos % (Auto) 0.0, Baso % (Auto) 0.1, Neut # (Auto) 8.5 H, Lymph # (Auto) 0.7 L, [place] # (Auto) 0.2, Eos # (Auto) 0.0, [...] % (Auto) 72.7, Lymph % (Auto) 16.1, [place] % (Auto) 8.8, Eos % (Auto) 2.1, Baso % (Auto) 0.3, Neut # (Auto) 5.3, Lymph # (Auto) 1.2, [place] # (Auto) 0.6, Eos# (Auto) 0.2, Baso [...] % (Auto) 66.8, Lymph % (Auto) 21.0, [place] % (Auto) 9.2, Eos % (Auto) 2.6, Baso % (Auto) 0.4, Neut # (Auto) 4.1, Lymph # (Auto) 1.3, [place] # (Auto) 0.6, Eos # (Auto) 0.2, [...] signed by DO Walter Montgomery> 12/13/21 0852 [facility] Work Phone: 1(316) 371-381808-16-2022 Progress note Author Teresa Strong [facility] December 12, 2021 8:43pm Note Date/Time December 12, 2021 2: 49pm [facility] [address] [place] [address] Urology Progress Note Signed Patient: Taye Gay MR#: [id number] : 1955 Acct:[id number] Age/Sex: 66 / F Adm Date: 2 Loc: Room: [address] [place] [address] Type: ADM INOo Attending Dr: Arleen Stephen MD Copies to: ~ <Ingrid Sommers [...] in the catheter. Exam <Ingrid Sommers DO, GAGE - Last Filed: 12/12/21 14:51> Physical Exam [...] % (Auto) 72.7, Lymph % (Auto) 16.1, [place] % (Auto) 8.8, Eos % (Auto) 2.1, Baso % (Auto) 0.3, Neut # (Auto) 5.3, Lymph # (Auto) 1.2, [place] # (Auto) 0.6, Eos# (Auto) 0.2, Baso [...] % (Auto) 66.8, Lymph % (Auto) 21.0, [place] % (Auto) 9.2, Eos % (Auto) 2.6, Baso % (Auto) 0.4, Neut # (Auto) 4.1, Lymph # (Auto) 1.3, [place] # (Auto) 0.6, Eos # (Auto) 0.2, [...] Preliminary No Growth 3 Days Assessment/Plan <Ingrid Sommers DO, RES - Last Filed: [...] 12/12/21 1446 Signed By: <Electronically signed by RES Ingrid Sommers> 12/12/21 1451 <Electronically signed by Teresa Strong MD> 12/12/212042 [facility] Work Phone: [phone] Progress note Author Arleen Stephen [facility] December 12, 2021 1:20pm Note Date/Time December 12, 2021 1: 20pm [facility] [address] [place] [address] Hospitalist Progress Note Signed Patient: Taye Gay MR#: [id number] : 1955 Acct:[id number] Age/Sex: 66 / F Adm Date: 2 Loc: Room: [address] [place] [address] Type: ADM INOo Attending Dr: Arleen Stephen MD Copies to: ~ Date of [...] continue to hold DVT prophylaxis Documented By: Arleen Stephen MD 12/12/21 1319 Signed By: <Electronically signed by Arleen Stephen MD> 12/12/21 1320 [facility] Work Phone: [phone] 248-834508-16-2022 Progress note Author Walter Montgomery [facility] December 12, 2021 8:07am Note Date/Time December 12, 2021 8: 07am [facility] [address] [place] [address] General Surgery Progress Note Signed Patient: Taye Gay MR#: [id number] : 1955 Acct:[id number] Age/Sex: 66 / F Adm Date: 2 Loc: Room: [address] [place] [address] Type: ADM INOo Attending Dr: Arleen Stephen MD Copies to: ~ Date of [...] 12/09/21] insulin lispro 100 unit/mL subcutaneous pen ([facility] SoloStar U-100 Insulin lispro) 1 sliding scale [...] 81 Mg Tablet.) 81 mg PO DAILY PARMJIT Stop: 12/10/22 08:59 [...] 50 mls @ 100 mls/hr IV Q24H [facility] Last Infusion: 12/11/21 10:15 Dose: Infused Sodium Chloride (0.9% Sodium Chloride 1,000 Ml) 1,000 mls @ 100 mls/hr IV .[id number] Stop: 12/12/22 00:00 Last Admin: 12/12/21 00:10 Dose: 100 mls/hr Insulin Aspart (Insulin Aspart 300 Units/3 Ml Insuln.Pen) 0 units SUBCUT TID.WM.[facility]; Protocol Stop: 12/09/22 11:59 Last Admin: 12/11/21 21:21 Dose: 3 units Nortriptyline HCl (Nortriptyline 25 Mg Capsule) 50 mg PO BID [facility] Stop: 12/09/22 20:59 Last Admin: 12/11/21 21:20 Dose: 50 mg Omeprazole (Omeprazole 20 Mg Capsule.Dr) 20 mg PO DAILY [facility] Stop: 12/10/22 08:59 Last Admin: 12/11/21 [...] % (Auto) 66.8, Lymph % (Auto) 21.0, [place] % (Auto) 9.2, Eos % (Auto) 2.6, Baso % (Auto) 0.4, Neut # (Auto) 4.1, Lymph # (Auto) 1.3, [place] # (Auto) 0.6, Eos # (Auto) 0.2, [...] signed by DO Walter Montgomery> 12/12/21 0807 [facility] Work Phone: [phone] Consult note Author Teresa Strong [facility] December 11, 2021 9:25pm Note Date/Time December 11, 2021 8: 10pm [facility] [address] [place] [address] Urology Consult Note Signed Patient: Taye Gay MR#: [id number] : 1955 Acct:[id number] Age/Sex: 66 / F Adm Date: 2 Loc: Room: [address] [place] [address] Type: ADM INOo Attending Dr: Arleen Stephen MD Copies to: NON STAFF MD Teresa Kay MD~ History of Present Illness Consult Details Consult Date: 12/11/2021 Reason for Urology Consult: fistula Requesting Provider: Arleen Stephen MD HPI: 66-year-old female with a [...] 12/09/21] insulin lispro 100 unit/mL subcutaneous pen ([facility] SoloStar U-100 Insulin lispro) 1 sliding scale [...] % (Auto) 66.8, Lymph % (Auto) 21.0, [place] % (Auto) 9.2, Eos % (Auto) 2.6, Baso % (Auto) 0.4, Neut # (Auto) 4.1, Lymph # (Auto) 1.3, [place] # (Auto) 0.6, Eos # (Auto) 0.2, [...] % (Auto) 63.3, Lymph % (Auto) 24.1, [place] % (Auto) 10.5, Eos % (Auto) 1.8, Baso % (Auto) 0.3, Neut # (Auto) 4.7, Lymph # (Auto) 1.8, [place] # (Auto) 0.8, Eos # (Auto) 0.1, [...] gallbladder sludge on US, plans for lap monica, possible appendectomy tomorrow with General Surgery. Urology [...] By: <Electronically signed by Teresa Strong MD> 12/11/[address] [place] [address] Ctr Work Phone: [phone] 437-558408-15-2022 Consult note Author Walter Montgomery [facility] December 11, 2021 3:18pm Note Date/Time December 11, 2021 3: 18pm [facility] [address] [place] [address] General Surgery Consult Note Signed Patient: Taye Gay MR#: [id number] : 1955 Acct:[id number] Age/Sex: 66 / F Adm Date: 2 Loc: Room: [address] [place] [address] Type: ADM INOo Attending Dr: Arleen Stephen MD Copies to: NON STAFF MD Walter Kay,DO~ History of Present Illness Date of consult: 12/11/2021 Requesting/Attending Provider: Arleen Stephen MD History of present illness: Patient [...] 12/09/21] insulin lispro 100 unit/mL subcutaneous pen ([facility] U-100 Insulin lispro) 1 sliding scale dose [...] 81 Mg Tablet.) 81 mg PO DAILY [facility] Stop: 12/10/22 08:59 Last Admin: 12/11/21 08:00 Dose: 81 mg Atorvastatin Calcium (Atorvastatin 10 Mg Tablet) 10 mg PO DAILY [facility] Stop: 12/10/22 08:59 Last Admin: 12/11/21 [...] 50 mls @ 100 mls/hr IV Q24H [facility] Last Infusion: 12/11/21 10:15 Dose: Infused Insulin Aspart (Insulin Aspart 300 Units/3 Ml Insuln.Pen) 0 units SUBCUT TID.WM.[facility]; Protocol Stop: 12/09/22 11:59 Last Admin: 12/11/21 11:33 Dose: 3 units Nortriptyline HCl (Nortriptyline 25 Mg Capsule) 50 mg PO BID [facility] Stop: 12/09/22 20:59 Last Admin: 12/11/21 08:00 Dose: 50 mg Omeprazole (Omeprazole 20 Mg Capsule.Dr) 20 mg PO DAILY [facility] Stop: 12/10/22 08:59 Last Admin: 12/11/21 08:00 Dose: 20 mg Ondansetron HCl (Ondansetron 4 Mg/2 Ml Vial) 4 mg IV-PUSH Q8H PRN PRN Reason: Nausea And Vomiting Stop: 12/09/22 11:18 Pioglitazone HCl (Pioglitazone 15 Mg Tablet) 15 mg PO DAILY [facility] Stop: 12/10/22 08:59 Last Admin: 12/11/21 [...] % (Auto) 66.8, Lymph % (Auto) 21.0, [place] % (Auto) 9.2, Eos % (Auto) 2.6, Baso % (Auto) 0.4, Neut # (Auto) 4.1, Lymph # (Auto) 1.3, [place] # (Auto) 0.6, Eos# (Auto) 0.2, Baso [...] % (Auto) 63.3, Lymph % (Auto) 24.1, [place] % (Auto) 10.5, Eos % (Auto) 1.8, Baso % (Auto) 0.3, Neut # (Auto) 4.7, Lymph # (Auto) 1.8, [place] # (Auto) 0.8, Eos # (Auto) 0.1, [...] % (Auto) 79.8, Lymph % (Auto) 9.6, [place] % (Auto) 9.1, Eos % (Auto)1.1, Baso % (Auto) 0.4, Neut # (Auto) 10.3 H, Lymph # (Auto) 1.2, [place] # (Auto) 1.2 H, Eos # (Auto) 0.1, Baso # (Auto) 0.1, Nucleated RBC % (auto) 0.0 12/09/21 08:35: Urine Color Yellow, Urine Appearance Cloudy A, Urine pH 5.5, Ur Specific [place] 1.030, Urine Protein Negative, Urine Glucose (UA) [...] <Electronically signed by DO Walter Montgomery> 12/11/211517 [facility] Work Phone: [phone] 212-562408-15-2022 Progress note Author Arleen Stephen [facility] December 11, 2021 1:33pm Note Date/Time December 11, 2021 1: 30pm [facility] [address] [place] [address] Hospitalist Progress Note Signed Patient: Taye Gay MR#: [id number] : 1955 Acct:[id number] Age/Sex: 66 / F Adm Date: 2 Loc: 3T Room: [address] [place] [address] Type: ADM INOo Attending Dr: Arleen Stephen MD Copies to: ~ Date of [...] 12/10/21 09:00 12/11/21 08:00 Aspirin 81 Mg Tablet. PO 12/10/22 08:59 [...] continue to hold DVT prophylaxis Documented By: Arleen Stephen MD 12/11/21 1326 Signed By: <Electronically signed by Arleen Stephen MD> 12/11/21 1333 [facility] Work Phone: [phone] Progress note Author Arleen Stephen [facility] December 10, 2021 11:26am Note Date/Time December 10, 2021 11 :26am [facility] [address] [place] [address] Hospitalist Progress Note Signed Patient: Taye Gay MR#: [id number] : 1955 Acct:[id number] Age/Sex: 66 / F Adm Date: 2 Loc: Room: [address] [place] [address] Type: ADM IN Attending Dr: Arleen Stephen MD Copies to: ~ Date of [...] 1,000 Ml IV 12/09/22 11:29 75 mls/hr .[id number] PARMJIT Administration Ceftriaxone Sodium 1 gm in [...] will gradually resume DVT prophylaxis Documented By: Arleen Stephen MD 12/10/211123 Signed By: <Electronically signed by Arleen Stephen MD> 12/10/21 112 [facility] Work Phone: [phone] History and physical note Author Arleen Stephen [facility] December 09, 2021 11:38am Note Date/Time December 09, 2021 11 :38am [facility] [address] [place] [address] Hospitalist H&P Signed Patient: Taye Gay MR#: [id number] : 1955 Acct:[id number] Age/Sex: 66 / F Adm Date: 2 Loc: ER Room: Type: [facility] ER Attending Dr: Copies to: NON STAFF MD Tray Kayy, DO~ HPI DATE OF EXAMINATION: 12/09/21 CHIEF [...] 02/09/21] insulin lispro 100 unit/mL subcutaneous pen ([facility] SoloStar U-100 Insulin lispro) 1 sliding scale [...] % (Auto) 9.6 % (.) 12/09/21 08:50 [place] % (Auto) 9.1 % (.) 12/09/21 08:50 Eos % (Auto) 1.1 % (.) 12/09/21 08:50 Baso % (Auto) 0.4 % (.) 12/09/21 08:50 Neut # (Auto) 10.3 x10E3/uL (1.8-7.7) H 12/09/21 08:50 Lymph # (Auto) 1.2 x10E3/uL (1.00-4.8) 12/09/21 08:50 [place] # (Auto) 1.2 x10E3/uL (0.0-0.8) H 12/09/21 [...] pH 5.5 (5.0-9.0) 12/09/21 08:35 Ur Specific [place] 1.030 (1.001-1.030) 12/09/21 08:35 Urine Protein Negative [...] will gradually resume DVT prophylaxis Documented By: Arleen Stephen MD 12/09/21 1133 Signed By: <Electronically signed by Arleen Stephen MD> 12/09/21 1138 [facility] Work Phone: [phone] 170-698506-16-2022 Evaluation note* Encounter Date Diagnosis Assessment Notes [...] good exercise tolerance overall. She does see [facility] for management of her diabetes [...] to get her started back on this. [employer] Other 03-14-2022 Evaluation note* Encounter Date Diagnosis Assessment Notes Treatment Notes Treatment Clinical Notes Jun, Type 2 diabetes mellitus with hyperglycemia (ICD-10 - E11.65) Managing type 2 diabetes material was published 1. Controlled, Type 2 diabetes with A1c 6% 2. Blood glucose levels improved. According to [employer] cgm download 06/26/2021- 2: Avg glucose 132. [...] to ask: hypertension material was published Jun, prison current use of insulin (ICD-10 - Z79.4) [...] (ICD-10 - L84) f/u with Dr. 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 She did have a colonoscopy done 5 years ago and states it was normal and she is due in 5 more years. I discussed other preventative measures such as vaccines but the patient is not at all interested in any vaccines. [employer] Other 12-14-2021 Evaluation note* Encounter Date Diagnosis Assessment Notes Treatment Notes Treatment Clinical Notes Mar, Type 2 diabetes mellitus with hyperglycemia (ICD-10 - E11.65) [employer] Other 12-06-2021 Evaluation note* Encounter Date Diagnosis [...] Pain in left leg (ICD-10 - M79.605) [employer] Other 11-29-2021 Evaluation note* Encounter Date Diagnosis Assessment Notes Treatment Notes Treatment Clinical Notes Feb, Type 2 diabetes mellitus with hyperglycemia (ICD-10 - E11.65) Managing type 2 diabetes material was published 1. Controlled, Type 2 diabetes with A1c 6.9% 2. Blood glucose levels according to [employer] cgm download 03/14/2021- 021: Avg glucose 167. [...] to ask: hypertension material was published [employer]. 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 [employer] Other Chief complaint+Reason for visit Narrative* Reason for Visit [id number] Dietary counseling and surveillance Hyperlipidemia Hypertension Insulin long-term use Peripheral neuropathy Type 2 diabetes mellitus Vitamin B 12 deficiency [facility] Work Phone: Consult note Author Walter Montgomery [facility] December 11, 2021 3:18pm Note Date/Time December 11, 2021 3: 18pm [facility] [address] [place] [address] General Surgery Consult Note Signed Patient: Taye Gay MR#: [id number] : 1955 Acct:[id number] Age/Sex: 66 / F Adm Date: 2 Loc: Room: [address] [place] [address] Type: ADM INOo Attending Dr: Arleen Stephen MD Copies to: NON STAFF MD Walter Kay DO~ History of Present Illness Date of consult: 12/11/2021 Requesting/Attending Provider: Arleen Stephen MD History of present illness: Patient [...] negative unless noted below or in HPI [facility] Vacc[facility] for [facility]-19?: No Medical History Diabetes [...] 12/09/21] insulin lispro 100 unit/mL subcutaneous pen ([facility] U-100 Insulin lispro) 1 sliding scale [...] Stop: 12/09/22 11:18 Aspirin (Aspirin 81 Mg Tablet.Dr) 81 mg PO DAILY [facility] Stop: 12/10/22 08:59 Last Admin: 12/11/21 08:00 Dose: 81 mg Atorvastatin Calcium (Atorvastatin 10 Mg Tablet) 10 mg PO DAILY [facility] Stop: 12/10/22 08:59 Last Admin: 12/11/21 08:00 Dose: 10 mg Dextrose (Dextrose 50% In Water 25 Gm/50 Ml Syringe) 0 gm IV-PUSH PRN PRN PRN Reason: Hypoglycemia Stop: 12/09/22 11:18 Enoxaparin Sodium (Enoxaparin 40 Mg/0.4 Ml Syringe) 40 mg SUBCUT DAILY@10 [facility] Stop: 12/10/22 09:59 Last Admin: 12/11/21 [...] 50 mls @ 100 mls/hr IV Q24H [facility] Last Infusion: 12/11/21 10:15 Dose: Infused Insulin Aspart (Insulin Aspart 300 Units/3 Ml Insuln.Pen) 0 units SUBCUT TID.WM.[facility]; Protocol Stop: 12/09/22 11:59 Last Admin: 12/11/21 11:33 Dose: 3 units Nortriptyline HCl (Nortriptyline 25 Mg Capsule) 50 mg PO BID [facility] Stop: 12/09/22 20:59 Last Admin: 12/11/21 08:00 Dose: 50 mg Omeprazole (Omeprazole 20 Mg Capsule.Dr) 20 mg PO DAILY [facility] Stop: 12/10/22 08:59 Last Admin: 12/11/21 08:00 Dose: 20 mg Ondansetron HCl (Ondansetron 4 Mg/2 Ml Vial) 4 mg IV-PUSH Q8H PRN PRN Reason: Nausea And Vomiting Stop: 12/09/22 11:18 Pioglitazone HCl (Pioglitazone 15 Mg Tablet) 15 mg PO DAILY [facility] Stop: 12/10/22 08:59 Last Admin: 12/11/21 [...] 15 Mg Capsule) 30 mg PO QHS [facility] Stop: 12/09/22 21:59 Last Admin: 12/10/21 [...] % (Auto) 66.8, Lymph % (Auto) 21.0, [place] % (Auto) 9.2, Eos % (Auto) 2.6, Baso % (Auto) 0.4, Neut # (Auto) 4.1, Lymph # (Auto) 1.3, [place] # (Auto) 0.6, Eos# (Auto) 0.2, Baso [...] % (Auto) 63.3, Lymph % (Auto) 24.1, [place] % (Auto) 10.5, Eos % (Auto) 1.8, Baso % (Auto) 0.3, Neut # (Auto) 4.7, Lymph # (Auto) 1.8, [place] # (Auto) 0.8, Eos # (Auto) 0.1, [...] % (Auto) 79.8, Lymph % (Auto) 9.6, [place] % (Auto) 9.1, Eos % (Auto)1.1, Baso % (Auto) 0.4, Neut # (Auto) 10.3 H, Lymph # (Auto) 1.2, [place] # (Auto) 1.2 H, Eos # (Auto) 0.1, Baso # (Auto) 0.1, Nucleated RBC % (auto) 0.0 12/09/21 08:35: Urine Color Yellow, Urine Appearance Cloudy A, Urine pH 5.5, Ur Specific [place] 1.030, Urine Protein Negative, Urine Glucose (UA) [...] <Electronically signed by DO Walter Montgomery> 12/11/21 [facility] Work Phone: Consult note Author Teresa Strong [facility] December 11, 2021 9:25pm Note Date/Time December 11, 2021 8: 10pm [facility] [address] [place] [address] Urology Consult Note Signed Patient: Taye Gay MR#: [id number] : 1955 Acct:[id number] Age/Sex: 66 / F Adm Date: 2 Loc: Room: [address] [place] [address] Type: ADM INOo Attending Dr: Arleen Stephen MD Copies to: NON STAFF MD Teresa Kay MD~ History of Present Illness Consult Details Consult Date: 12/11/2021 Reason for Urology Consult: fistula Requesting Provider: Arleen Stephen MD HPI: 66-year-old female with a [...] insulin lispro 100 unit/mL subcutaneous pen ([facility] U-100 Insulin lispro) 1 sliding scale [...] % (Auto) 66.8, Lymph % (Auto) 21.0, [place] % (Auto) 9.2, Eos % (Auto) 2.6, Baso % (Auto) 0.4, Neut # (Auto) 4.1, Lymph # (Auto) 1.3, [place] # (Auto) 0.6, Eos # (Auto) 0.2, [...] % (Auto) 63.3, Lymph % (Auto) 24.1, [place] % (Auto) 10.5, Eos % (Auto) 1.8, Baso % (Auto) 0.3, Neut # (Auto) 4.7, Lymph # (Auto) 1.8, [place] # (Auto) 0.8, Eos # (Auto) 0.1, [...] gallbladder sludge on US, plans for lap monica, possible appendectomy tomorrow with General Surgery. Urology [...] <Electronically signed by Teresa Strong MD> 12/11/212124 [facility] Work Phone: Consult note Author Lit Clark [facility] Note Date/Time April 29, 2024 11 :07am [facility] [address] [place] [address] Neurology Consult Note Signed Patient: Taye Gay MR#: [id number] : 1955 Acct:[id number] Age/Sex: 68 / F Adm Date: 4 Loc: Room: [address] [place] [address] Type: ADM IN Attending Dr: Priscilla Lang MD Copies to: DO Sandra Garrido DO Rafik Massouh, MD~ HPI Consult Date: 04/29/24 High [employer] Yarder: Lit Clark DO Reason for consult: Slurred speech and weakness Consult Narrative HPI: I was asked to see this 68-year-old female new patient neurology consultation atthe request of the hospitalist service for concern for generalized weakness and slurred speech. She does have a history of dementia, insulin-dependent diabetes, A-fib and multiple other past medical history. Apparently she had an episode yesterday of a sudden onset of slurred speech and a gait that appeared drunk. Patient slurred speech had resolved by the time she presented to the emergency department. She has had large fluctuations noted in her blood pressure over the course of the last couple days with low blood pressure noted down to 88/64 and high blood pressures noted all the way up to 170/70. She had an NIH stroke scale of [address] and CT angiogram the emergency department were unremarkable. The patient does take Eliquis and aspirin at home. Eliquis is for atrial fibrillation. Patient was noted to have mild hypoxia, mild hypotension and dehydration and was given magnesium as well as saline in the emergency department. No focal deficits were noted by emergency department examination or by primary team examination. No new or acute events overnight. Is awake alert and talkative this morning. She feels that she has returned to baseline. She has no new concerns overnight. Review of Systems Review of Systems All other systems reviewed & are negative unless noted below or in HPI [facility] Medical History BMI 32.0-32.9,adult Abnormal thyroid blood test History of cardioversion History of esophageal stricture Cigarette nicotine dependence GERD (gastroesophageal reflux disease) [...] History Father Heart disease History of stroke [facility] Problem: Diagnosed with Stroke Cancer throat heart disease Mother heart attack Heart disease Hypertension Son Diabetes Sister complications from fall/hit head on sink Brother complications from covid Social History Smoking Status: Current every day smoker Tobacco Type: cigarettes Substance Use Type: None Meds Medications and Allergies Allergies Sulfa (Sulfonamide Antibiotics) Allergy (Verified 04/28/24 19:33) Vomiting Home Medications aspirin 81 mg tablet,delayed release 81 mg PO DAILY 02/09/21 [History Confirmed 04/28/24] simvastatin 20 mg tablet 20 mg PO DAILY 02/09/21 [History Confirmed 04/28/24] docusate sodium 100 mg capsule (Stool Softener) 100 mg PO DAILY PRN qzioeezikfka00/14/24 [History Confirmed 04/28/24] multivitamin 1 tab PO DAILY 06/12/23 [History Confirmed 04/28/24] pen needle, diabetic [Sure-Fine Pen [place]] 06/12/23 [History Confirmed 04/28/24] metformin 500 mg tablet See Rx Instructions .Route .COMPLEX #180 tabs 08/26/23 [Rx Confirmed 04/28/24] folic acid 1 mg tablet 1 mg PO DAILY 90 days #90 tabs 10/16/23 [Rx Confirmed 04/28/24] cyanocobalamin (vitamin B-12) 1,000 mcg capsule 1,000 mcg PO DAILY 11/14/23 [History Confirmed 04/28/24] apixaban 5 mg tablet (Eliquis) 5 mg PO BID #180 tabs 12/03/23 [Rx Confirmed 04/28/24] insulin lispro 100 unit/mL subcutaneous pen See Rx Instructions subcut ACHS #30 mL 12/23/23 [Rx Confirmed 04/28/24] omeprazole 20 mg capsule,delayed release See Rx Instructions .Route .COMPLEX #90caps 01/06/24 [Rx Confirmed 04/28/24] flash glucose sensor (FreeStyle Brent 14 Day Sensor kit) #2 ea 01/10/24 [Rx Confirmed 04/28/24] cyclobenzaprine 10 mg tablet 10 mg PO DIRECTED PRN muscle spasm 01/15/24 [History Confirmed 04/28/24] pregabalin 300 mg capsule 300 mg PO DAILY 01/15/24 [History Confirmed 04/28/24] magnesium oxide 400 mg (241.3 mg magnesium) tablet See Rx Instructions .Route .COMPLEX #180 tabs 01/29/24 [Rx Confirmed 04/28/24] carvedilol 12.5 mg tablet 12.5 mg PO BID 04/14/24 [History Confirmed 04/28/24] temazepam 30 mg capsule 30 mg PO DAILY 30 days #30 caps 04/20/24 [Rx Confirmed 04/28/24] [employer] SoloStar U-300 Insulin 300 unit/mL (1.5 mL) subcutaneous pen (insulin glargine U-300 conc) 22 unit (0.0733 mL) subcut DAILY #9 mL 04/28/24 [Rx Confirmed 04/28/24] donepezil 10 mg tablet 20 mg PO DAILY 04/28/24 [History Confirmed 04/28/24] empagliflozin 25 mg tablet (Jardiance) 25 mg PO DAILY #90 tabs 04/28/24 [Rx Confirmed 04/28/24] lidocaine 5 % topical ointment 1 applic topical DAILY PRN pain 04/28/24 [History Confirmed 04/28/24] memantine 10 mg tablet 10 mg PO BID 04/28/24 [History Confirmed 04/28/24] nortriptyline 25 mg capsule 25 mg PO QHS 04/28/24 [History Confirmed 04/28/24] semaglutide 2 mg/dose (8 mg/3 mL) subcutaneous pen injector (Ozempic) 2 mg (0.75mL) subcut QWEEK #9 mL 04/28/24 [Rx Confirmed 04/28/24] Exam Physical Exam Vital Signs: Temp Pulse Resp BP Pulse Ox O2 Del Method 97.4 F L 60 18 114/74 92 L Room Air 04/29/24 08:00 04/29/24 08:00 04/29/24 08:00 04/29/24 08:00 04/29/24 08:00 04/29/24 08:00 Narrative: Narrative: GENERAL EXAM: Patient is alert and oriented x3. In general the patient is well-appearing. NEURO EXAM: Cranial nerve II. Vision is intact. Pupils are equal Cranial nerve III, IV and . Extraocular muscles are intact. No nystagmus is appreciated Cranial nerve V and VII. No facial asymmetry is appreciated. Temperature and pinprick is equal bilaterally Cranial nerve VIII hearing is intact Cranial nerve IX and X speech is clear fluent. Palate elevates symmetrically Cranial nerve XI head turn side to side full range of motion. Shoulder shrug isequal bilaterally Cranial nerve XII tongue is midline full range of motion MOTOR EXAM: Strength is 5/5 throughout. No pronator drift was appreciated Muscle tone and bulk are normal SENSORY EXAM: Denies paresthesias CEREBELLAR EXAM: Alternating movements are intact. Finger to nose normal Gait not assessed Results - Neuro Laboratory Findings 04/28/24 19:54 04/29/24 06:10 Diagnostic Findings Imaging/Impressions: ITS Impressions Chest X-Ray 04/28/24 19:42 IMPRESSION: There is mild cardiomegaly with perihilar vascular prominence which may indicatemild volume overload/congestive heart failure. Impression dictated by: Oz Bowling M.D.04/28/2024 9:46 PM Dictation Location: [facility] 04/28/24 19:44 IMPRESSION: No acute intracranial pathology. No evidence of focal stenosis, aneurysmal dilatation, dissection or occlusion. Impression dictated by: Oz Bowling M.D.04/28/2024 9:44 PM Dictation Location: [place] [address] Assessment/Plan (1) Atrial fibrillation: Qualifiers: Atrial fibrillation type: paroxysmal Qualified Code(s): I48.0 - Paroxysmal atrial fibrillation (2) Generalized weakness: (3) Insulin dependent diabetes mellitus: Plan It is my impression that the patient suffered an episode of slurred speech, weakness and imbalance. Patient was noted to have large fluctuations in blood pressure as well as mild hypoxia and dehydration. Patient did have CT and CT angiogram which were unremarkable. Patient was admitted for stroke evaluation back in October 2023 and had an unremarkable echocardiogram at that time and did have a hemoglobin A1c noted as well. I suspect that this episode may be due to metabolic disturbance from the hypoxia, blood pressure changes and potentially blood sugar related changes. No focal deficits are noted. Patient was not a tPA or interventional candidate. The complaints of generalized rather than focal weakness in the patient's speechdisturbance consideration is strongly given to a metabolic cause. I cannot fully exclude transient ischemia or infarct. Further imaging is pending. Workup: CT of the brain without contrast: Unremarkable CT angiogram of the head and neck: Unremarkable for occlusion, aneurysm or dissection LDL: 45?patient did have statin medication intensity increased by primary team. Goal should be LDL less than 70 in the setting of concern for history of stroke Hemoglobin A1c: 6.6 in October 2023?can be followed in the outpatient setting by primary care 2D echocardiogram in October 2023: 55 to 60% ejection fraction without mention of mass, vegetation or thrombus MRI of the brain: Pending Plan: At this time, I recommend continuation of aspirin 81 mg p.o. daily and Eliquis at current dosing for atrial fibrillation. The patient's episode may be metabolic in nature and not registered representative necessarily of transient ischemia or of infarct. As such, unless an abnormality is identified on MRI, there would not be failure of the current medications for secondary stroke prevention. Goal of LDL less than 70 PT and OT to assess the patient's complaints of generalized weakness upon presentation If MRI is unremarkable patient can follow in the outpatient setting with neurology. will follow. Documented By: Lit Clark DO [id number] Signed By: <Electronically signed by Lit Clark DO> 04/29/24 9773 [facility] Work Phone: Discharge summary Author Wilmer Vance [facility] December 13, 2021 1:58pm Note Date/Time December 13, 2021 1: 58pm [facility] [address] [place] [address] Discharge Summary Signed Patient: Taye Gay MR#: [id number] : 1955 Acct:[id number] Age/Sex: 66 / F Adm Date: 2 Loc: Room: [address] [place] [address]: Wilmer Vance MD Copies to: MD Corinna Webber William L. DO~ Providers Date of Discharge: 12/13/21 Discharging Provider: Wilmer Vance Primary Care Provider: Jonas Yoder Consults: 12/11/21 13:24 Consult to General [...] for cholelithiasis. Decision was madeto undergo Lap monica for which patient went to OR yesterday [...] % (Auto) 90.4, Lymph % (Auto) 7.7, [place] % (Auto) 1.8, Eos % (Auto) 0.0, Baso % (Auto) 0.1, Neut # (Auto) 8.5 H, Lymph # (Auto) 0.7 L, [place] # (Auto) 0.2,Eos # (Auto) 0.0, Baso [...] scheduled appointment Instructions: Cholecystectomy, Laparoscopic Surgery, Acetaminophen, Cefuroxime,[facility] at Home Prescriptions: New [...] SUBCUT QWEEK Rx Instructions: Saturday Follow Up: Jonas Yoder DO [Primary Care Provider] - (His [...] <Electronically signed by Wilmer Vance MD> 12/13/21 1263 [facility] Work Phone: Discharge summary Author Elva Florian [facility] September 15, 2023 1:17am Note Date/Time September 14, 2023 2:20p m [facility] [address] [place] [address] Discharge Summary Signed Patient: Taye Gay MR#: [id number] : 1955 Acct:[id number] Age/Sex: 67 / F Adm Date: 4 Loc: Room: [address] [place] [address]: Elva Florian MD Copies to: DO Elva Daniels MD~ Providers Date of Discharge: 09/14/23 Discharging Provider: Elva Florian Primary Care Provider: Sandra Keita Consults: * Jonas Ch MD;Faraz Gilliam MD Cardiology Discharge Diagnosis [...] 30 0RF Continued omeprazole 20 mg capsule,delayed release(/EC) See Rx Instructions .ROUTE .COMPLEX Qty: 90 [...] PO DAILY (DME) flash glucose sensor [FreeStyle Brent 14 Day Sensor] .Route (DME) pen needle, diabetic [Sure-Fine Pen Webster] .Route (DME) FreeStyle Brent 14 Day Sensor Kit See Rx Instructions .ROUTE .MEDSUPPLY Qty: 2 5RF Rx Instructions: As directed Change every 14 days Follow Up: Jonas Ch MD [Active Staff] - (Follow Up [...] signed by Elva Florian MD> 09/15/23 0117 [facility] Work Phone: Discharge summary Author Priscilla Lang [facility] Note Date/Time April 30, 2024 10 :28am [facility] [address] [place] [address] Discharge Summary Signed Patient: Taye Gay MR#: [id number] : 1955 Acct:[id number] Age/Sex: 68 / F Adm Date: 4 Loc: Room: [address] [place] [address]: Priscilla Lang MD Copies to: DO Priscilla Daniels MD~ Providers Date of Discharge: 04/30/24 Discharging Provider: Priscilla Lang Primary Care Provider: Sandra Keita Consults: 04/29/24 06:29 Consult to Neurology Routine Comment: Consulting Provider: Lit Clark Reason For Exam: TIA on ASA/DOAC Has Provider Been Notified: Yes Date of Notification: 04/29/24 Time of Notification: 07:35 04/29/24 11:04 Consult to Occupational Therapy Routine Comment: Physician Instructions: Consult to OT for:: Evaluation and Treat Consult to Physical Therapy Routine Comment: Physician Instructions: Consult to PT for:: Evaluation and Treat Discharge Diagnosis (1) Atrial fibrillation: (2) Generalized weakness: (3) Insulin dependent diabetes mellitus: (4) TIA (transient ischemic attack): (5) Diabetes: (6) Hypothyroid: (7) Hypomagnesemia: Final Diagnosis Final Discharge Diagnosis: As listed above as well as others that are not listed Summary Hospital Course Hospital course: Mrs. Gay is a 68-year-old female with multiple cardiovascular risk. Patient came in with altered mental status, weakness, slurred speech. She was admitted with the diagnosis of a TIA. Patient was seen by neurology team and underwent a series of workup and investigation. She had a CAT scan of the brain which did not show any acute intracranial process. Patient was recommended to have MRI of the brain to rule out actual CVA. Unfortunately the patient has mental in her nails and team not to be compatible with MRI unless patient removes her nail cover. Patient was not willing to consider that. Patient requested to be discharged home. Her neurological issues have resolved. Patient was found to have UTI which had contributing to her altered mental status, encephalopathy. In addition the patient had been taking multiple medications that could potentially cause EXECUTIVE CASINO HOST side effect and toxic encephalopathy. Diagnosis is consistent with transient ischemic attack, septic and toxic encephalopathy. Unfortunately MRI could not be done to confirm whether she had stroke or not. Continue to take aspirin and Eliquis for secondary stroke prevention. History of paroxysmal A-fib on Eliquis. Hypertension and diabetes. Patient has multiple complex medical issues as listed above and others that are not listed. All appear to be stable. Patient is feeling great. Complete resolution of her neurological symptoms. Patient was not willing to remove her nail metal cover up to proceed with MRI. Patient is requesting to be dischargedhome. Patient was instructed to consult with her primary care doctor or other providers to simplify her polypharmacy regimen to reduce her risk of EXECUTIVE CASINO HOST side effects or drug?drug interaction. At this time, I do not have any clear or strong clinical justification to extend inpatient hospitalization. Patient however will require close and frequent monitoring as well as additional work-up, investigation and therapeutic intervention that could take place from this point on post discharge. That is to prevent relapse, decompensation, rehospitalization and other medical implications. I instructed patient to ask her primary care doctor to obtain [facility] record entirely to address abnormalities seen on labs and imagingthat I have and have not addressed during this hospitalization, follow-up on pending blood work, imaging and pathology is if available and to follow-up on needed medical care in the outpatient setting. Time Spent with Patient Time spent providing/coordinating discharge services (# min): 40 Discharge Plan Discharge Plan Patient Disposition: Home Additional Instructions: I may not have addressed or treated all of your medical illnesses or the abnormal blood work or imaging studies during this hospitalization. Please ask your primary care provider to obtain [facility] records entirely to follow up on all of the abnormal physical, laboratory, and imaging findings that I have not addressed. Please return back to the emergency room or seek medical attention if your symptoms worsen or return. You are taking 2 medications that could cause you to have side effect such as confusion, hallucination, weakness, slurred speech. Please consult with your primary care doctor and other prescribers to simplify your medication regimen toreduce your risk having side effect or having drug?drug interaction. Discharging you from [facility] does not mean that your medical care ends here and now. You may still need additional monitoring, work up, investigation, and treatment plan to be handled from this point on by out patient providers including your primary care provider and specialists. For any medication question, please contact your retail pharmacist or your primary care provider. Thank you. Instructions: Know your Meds Prescriptions: New cefuroxime axetil 500 mg tablet 500 mg PO BID 7 Days Qty: 14 0RF Continued metformin 500 mg tablet See Rx Instructions .ROUTE .COMPLEX Qty: 180 3RF Dose Instruction: take 1 tablet by mouth twice a day with meals Rx Instructions: take 1 tablet by mouth twice a day with meals folic acid 1 mg tablet 1 mg PO DAILY 90 Days Qty: 90 1RF Eliquis 5 mg tablet 5 mg PO BID Qty: 180 1RF insulin lispro 100 unit/mL insulin pen See Rx Instructions SUBCUT ACHS MDD 20 units/day Qty: 30 3RF Rx Instructions: subcutaneously before meals and at bedtime; 1:50 corrective scale (expect up to 20 units/day) omeprazole 20 mg capsule,delayed release(DR/EC) See Rx Instructions .ROUTE .COMPLEX Qty: 90 3RF Dose Instruction: take 1 capsule by mouth once daily Rx Instructions: take 1 capsule by mouth once daily (DME) FreeStyle Brent 14 Day Sensor Kit See Rx Instructions .ROUTE .MEDSUPPLY Qty: 2 11RF Rx Instructions: As directed Change every 14 days magnesium oxide 400 mg (241.3 mg magnesium) tablet See Rx Instructions .ROUTE .COMPLEX Qty: 180 1RF Dose Instruction: TAKE 1 TABLET BY MOUTH TWICE A DAY Rx Instructions: TAKE 1 TABLET BY MOUTH TWICE A DAY aspirin 81 mg Tablet,Delayed Release (Dr/Ec) 81 mg PO DAILY multivitamin Tablet 1 tab PO DAILY docusate sodium [Stool Softener] 100 mg capsule 100 mg PO DAILY PRN (Reason: constipation) (DME) pen needle, diabetic [Sure-Fine Pen Webster] .Route lidocaine 5 % ointment 1 applic topical DAILY PRN (Reason: pain) memantine 10 mg tablet 10 mg PO BID nortriptyline 25 mg capsule 25 mg PO QHS donepezil 10 mg tablet 20 mg PO DAILY Ozempic 2 mg/dose (8 mg/3 mL) pen injector 2 mg subcut QWEEK Qty: 9 3RF Jardiance 25 mg tablet 25 mg PO DAILY Qty: 90 3RF insulin glargine U-300 conc [Toujeo SoloStar U-300 Insulin] 300 unit/mL (1.5 mL) insulin pen 22 unit SUBCUT DAILY MDD may titrate up to30 units/day Qty: 9 3RF carvedilol 12.5 mg tablet 12.5 mg PO BID cyanocobalamin (vitamin B-12) 1,000 mcg capsule 1,000 mcg PO DAILY pregabalin 300 mg capsule 300 mg PO DAILY Changed simvastatin 20 mg Tablet 40 mg PO DAILY Qty: 30 0RF Discontinued temazepam 30 mg capsule 30 mg PO DAILY 30 Days Qty: 30 0RF cyclobenzaprine 10 mg tablet 10 mg PO DIRECTED PRN (Reason: muscle spasm) Follow Up: [facility] [Provider Group] Sandra Keita DO [Primary Care Provider] - 05/05/24 3:30 pm (Follow-up with your Primary Care Provider, call office to reschedule if needed. ) Exam Physical Exam Vital Signs: Temp Pulse Resp BP Pulse Ox O2 Del Method 97.8 F 64 18 141/83 H 96 Room Air 04/30/24 08:25 04/30/24 08:25 04/30/24 08:25 04/30/24 08:25 04/30/24 08:25 04/30/24 08:35 Diagnostic Studies Completed and Pending Studies Pending studies at discharge: 04/29/24 17:13 Urine Culture Routine Preliminary micro results at discharge 04/29/24 17:13 Urine Culture - Pending Clean Void Midstream Labs on day of discharge: 04/30/24 06:45: POC Glucose 134 04/30/24 05:31: Corrected WBC 7.3, Uncorrected WBC Count 7.3, RBC 4.70, Hgb 14.7, Hct 44.3, MCV 94.4, MCH 31.4, MCHC 33.3, RDW 15.4 H, Plt Count 119 L, MPV 9.5, Neut % (Auto) 63.5, Lymph % (Auto) 24.9, [place] % (Auto) 8.3, Eos % (Auto) 2.9, Baso % (Auto) 0.4, Nucleat RBC Rel Count 0.0, Neut # (Auto) 4.6, Lymph # (Auto) 1.8, [place] # (Auto) 0.6, Eos # (Auto) 0.2, Baso # (Auto) 0.0, PHA Creatinine Clear 82.38, Sodium 140, Potassium 3.8, Chloride 106, Carbon Dioxide 26.9, Anion Gap 10.9, BUN 9, Creatinine 0.80, Est GFR (CKD-EPI) > 60.0, Glucose 130 H, Calcium 9.3, Phosphorus 2.9, Magnesium 1.7 L, Total Bilirubin 0.5, AST 23, ALT 16, Alkaline Phosphatase 85, Total Protein 6.4, Albumin 3.5, Globulin 2.9, Albumin/Globulin Ratio 1.2 04/29/24 20:48: POC Glucose 165 04/29/24 17:13: Urine Opiates Screen Negative, Ur Barbiturates Screen Negative, Ur Phencyclidine Scrn Negative, Ur Amphetamines Screen Negative, U Benzodiazepines Scrn Negative, Urine Cocaine Screen Negative, U Marijuana (THC) Screen Negative 04/29/24 16:12: POC Glucose 188, POC Glucose Comment Glu2: cleaned meter 04/29/24 11:34: POC Glucose 192, POC Glucose Comment Glu2: cleaned meter Documented By: Priscilla Lang MD 04/30/24 1016 Signed By: <Electronically signed by Priscilla Lang MD> 04/30/24 1028 [facility] Work Phone: Evaluation noteNo InformationNort Front[employer] Other Evaluation note* Diagnosis Onset Date Resolution Status Cholelithiasis acute Emphysematous cystitis acute Pyelonephritis acute Right lateral abdominal pain acute [facility] Work Phone: Evaluation noteNo assessment information available [facility] Work Phone: evaluation note* Diagnosis Onset Date Resolution Status [id number] acute Dietary counseling and surveillance acute Hyperlipidemia acute Hypertension acute Insulin long-term use acute Peripheral neuropathy acute Type 2 diabetes mellitus acu te Vitamin B 12 deficiency acut e [facility] Work Phone: evaluation note* Diagnosis Onset Date Resolution Status BMI 28.0-28.9,adult acute [id number] acute Dietary counseling and surveillance acute Hyperlipidemia acute Hypertension acute Insulin long-term use acute Peripheral neuropathy acute Type 2 diabetes mellitus acu te Vitamin B 12 deficiency acut e [facility] Work Phone: evaluation note* Diagnosis Onset Date Resolution Status BMI 28.0-28.9,adult acute [id number] acute Dietary counseling and surveillance acute Hyperlipidemia acute Hypertension acute Insulin long-term use acute Peripheral neuropathy acute Type 2 diabetes mellitus acu te Vitamin B 12 deficiency acut e Dizziness acute Hypertension acute Primary insomnia acute Type 2 diabetes mellitus acu te [facility] Work Phone: evaluation note* Diagnosis Onset Date Resolution Status BMI 28.0-28.9,adult acute [id number] acute Dietary counseling and surveillance acute Hyperlipidemia acute Hypertension acute Insulin long-term use acute Peripheral neuropathy acute Type 2 diabetes mellitus acu te Vitamin B 12 deficiency acut e Dizziness acute Hypertension acute Primary insomnia acute Type 2 diabetes mellitus acu te PAD (peripheral artery disease) acute [facility] Work Phone: evaluation note* Diagnosis Onset Date Resolution Status PAD (peripheral artery disease) acute BMI 28.0-28.9,adult acute [id number] acute Dietary counseling and surveillance acute Hyperlipidemia acute Hypertension acute Peripheral neuropathy acute Tachycardia acute Type 2 diabetes mellitus acu te Vitamin B 12 deficiency acut e Atrial flutter with rapid ventricular response acute Chest pain acute Hyperlipidemia acute Hypertension acute New onset atrial flutter acu te Type 2 diabetes mellitus acu te [facility] Work Phone: evaluation note* Diagnosis Onset Date Resolution Status PAD (peripheral artery disease) acute BMI 28.0-28.9,adult acute [id number] acute Dietary counseling and surveillance acute Hyperlipidemia acute Hypertension acute Peripheral neuropathy acute Tachycardia acute Type 2 diabetes mellitus acu te Vitamin B 12 deficiency acut e Atrial flutter with rapid ventricular response acute Chest pain acute Hyperlipidemia acute Hypertension acute New onset atrial flutter acu te Type 2 diabetes mellitus acu te New onset atrial flutter acu te Mobility impaired noneactive [facility] Work Phone: Evaluation note* Diagnosis Typical atrial flutter (Multi) Nonischemic cardiomyopathy (Multi) Other primary cardiomyopathies Hypertension, unspecified type Hypercholesteremia Pure hypercholesterolemia Smoker Tobacco use disorder Type 2 diabetes mellitus with other specified complication, 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) BMI 28.0-28.9,adult documented in this encounter [facility] Work Phone: Evaluation note* Diagnosis Onset Date Resolution Status BMI 28.0-28.9,adult acute [id number] acute Dietary counseling and surveillance acute Hyperlipidemia [...] diabetes mellitus acu te Mobility impaired noneactive [facility] Work Phone: Evaluation note* Diagnosis Onset Date Resolution Status BMI 28.0-28.9,adult acute [id number] acute Dietary counseling and surveillance acute Hyperlipidemia [...] diabetes mellitus with hyperglycemia acute Weakness acute [facility] Work Phone: Evaluation note* Diagnosis Onset Date Resolution Status BMI 28.0-28.9,adult acute [id number] acute Dietary counseling and surveillance acute Hyperlipidemia [...] B 12 deficiency acut e Weakness acute [facility] Work Phone: Evaluation note* Diagnosis Onset Date Resolution Status BMI 28.0-28.9,adult acute [id number] acute Dietary counseling and surveillance acute Hyperlipidemia [...] acut e Weakness acute BMI 28.0-28.9,adult acute [id number] acute Dietary counseling and surveillance acute Hyperlipidemia acute Hypertension acute Peripheral neuropathy acute Type 2 diabetes mellitus acu te Vitamin B 12 deficiency acut e [facility] Work Phone: Evaluation note* Diagnosis Onset Date Resolution Status BMI 28.0-28.9,adult acute [id number] acute Dietary counseling and surveillance acute Hyperlipidemia [...] thyroid blood test acute BMI 28.0-28.9,adult acute [id number] acute Dietary counseling and surveillance acute Hyperlipidemia acute Hypertension acute Peripheral neuropathy acute Type 2 diabetes mellitus acu te Vitamin B 12 deficiency acut e [facility] Work Phone: Evaluation note* Diagnosis Onset Date Resolution Status BMI 28.0-28.9,adult acute [id number] acute Dietary counseling and surveillance acute Hyperlipidemia [...] thyroid blood test acute BMI 28.0-28.9,adult acute [id number] acute Dietary counseling and surveillance acute Hyperlipidemia acute Hypertension acute Peripheral neuropathy acute Type 2 diabetes mellitus acu te Vitamin B 12 deficiency acut e Hospital discharge follow-up acute Hypomagnesemia acute [facility] Work Phone: Evaluation note* Diagnosis Onset Date Resolution Status Ambulatory dysfunction acute Hypomagnesemia acute Hypothyroid acute Type 2 diabetes mellitus with hyperglycemia acute Vitamin B 12 deficiency acut e Weakness acute Abnormal thyroid blood test acute BMI 28.0-28.9,adult acute [id number] acute Dietary counseling and surveillance acute Hyperlipidemia acute Hypertension acute Peripheral neuropathy acute Type 2 diabetes mellitus acu te Vitamin B 12 deficiency acut e Hospital discharge follow-up acute Hypomagnesemia acute [facility] Work Phone: Evaluation note* Diagnosis Ulcer of right foot, limited to breakdown of skin (CMS/HCC)- Primary Blister of right foot, subsequent encounter 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) documented in this encounter [facility] HealthcareEvaluation note* Diagnosis Onset Date Resolution Status Ambulatory dysfunction acute Hypomagnesemia acute Hypothyroid acute Type 2 diabetes mellitus with hyperglycemia acute Vitamin B 12 deficiency acut e Weakness acute Abnormal thyroid blood test acute BMI 28.0-28.9,adult acute [id number] acute Dietary counseling and surveillance acute Hyperlipidemia acute Hypertension acute Peripheral neuropathy acute Type 2 diabetes mellitus acu te Vitamin B 12 deficiency acut e Hospital discharge follow-up acute Hypomagnesemia acute Weakness acute [facility] Work Phone: Evaluation note* Diagnosis Leg pain, bilateral- Primary Pain in soft tissues of limb Carpal tunnel syndrome, bilateral Carpal tunnel syndrome B12 deficiency Lumbar paraspinal muscle spasm Other symptoms referable to back Muscle wasting and atrophy, not elsewhere classified, multiple sites Neurogenic pain Cervical paraspinal muscle spasm Spasm of muscle Numbness Disturbance of skin sensation Leg pain, left Pain in soft tissues of limb Leg pain, right Pain in soft tissues of limb Bilateral leg weakness Muscle weakness (generalized) Arm weakness Other musculoskeletal symptoms referable to limbs Arm pain, right Pain in soft tissues of limb Arm pain, left Pain in soft tissues of limb Polyneuropathy- Primary Unspecified hereditary and idiopathic peripheral neuropathy B12 deficiency BEATRICE positive Lumbosacral radiculopathy at S1 Neurogenic pain- Primary Lumbosacral radiculopathy at S1 BEATRICE positive Carpal tunnel syndrome, bilateral Carpal tunnel syndrome B12 deficiency Lumbar paraspinal muscle spasm Other symptoms referable to back Cervical paraspinal muscle spasm Spasm of muscle Lumbosacral radiculopathy at S1- Primary Neurogenic pain Cervical paraspinal muscle spasm Spasm of muscle Lumbar paraspinal muscle spasm Other symptoms referable to back Carpal tunnel syndrome, bilateral Carpal tunnel syndrome B12 deficiency Ulcer of right foot, limited to breakdown of skin (CMS/HCC)- Primary Blister of right foot, subsequent encounter 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) Ulcer of right foot with fat layer exposed (CMS/HCC) documented in this encounter [facility] HealthcareEvaluation note* Diagnosis Leg pain, bilateral- Primary Pain in soft tissues of limb Carpal tunnel syndrome, bilateral Carpal tunnel syndrome B12 deficiency Lumbar paraspinal muscle spasm Other symptoms referable to back Muscle wasting and atrophy, not elsewhere classified, multiple sites Neurogenic pain Cervical paraspinal muscle spasm Spasm of muscle Numbness Disturbance of skin sensation Leg pain, left Pain in soft tissues of limb Leg pain, right Pain in soft tissues of limb Bilateral leg weakness Muscle weakness (generalized) Arm weakness Other musculoskeletal symptoms referable to limbs Arm pain, right Pain in soft tissues of limb Arm pain, left Pain in soft tissues of limb Polyneuropathy- Primary Unspecified hereditary and idiopathic peripheral neuropathy B12 deficiency BEATRICE positive Lumbosacral radiculopathy at S1 Neurogenic pain- Primary Lumbosacral radiculopathy at S1 BEATRICE positive Carpal tunnel syndrome, bilateral Carpal tunnel syndrome B12 deficiency Lumbar paraspinal muscle spasm Other symptoms referable to back Cervical paraspinal muscle spasm Spasm of muscle Lumbosacral radiculopathy at S1- Primary Neurogenic pain Cervical paraspinal muscle spasm Spasm of muscle Lumbar paraspinal muscle spasm Other symptoms referable to back Carpal tunnel syndrome, bilateral Carpal tunnel syndrome B12 deficiency Cognitive decline- Primary Neurogenic pain Carpal tunnel syndrome, bilateral Carpal tunnel syndrome B12 deficiency documented in this encounter [facility] HealthcareEvaluation note* Diagnosis Hypertension, unspecified type Typical atrial flutter (Multi) documented in this encounter [facility] Work Phone: Evaluation note* Diagnosis Lumbosacral radiculopathy at S1- Primary Neurogenic pain Cervical paraspinal muscle spasm Spasm of muscle Lumbar paraspinal muscle spasm Other symptoms referable to back Carpal tunnel syndrome, bilateral Carpal tunnel syndrome B12 deficiency documented in this encounter [facility] HealthcareEvaluation note* Diagnosis Nonischemic cardiomyopathy (Multi)- Primary Other primary cardiomyopathies Typical atrial flutter (Multi) Hypercholesteremia Pure hypercholesterolemia Primary hypertension Unspecified essential hypertension Current smoker BMI 28.0-28.9,adult High risk medication use documented in this encounter [facility] Work Phone: Evaluation note* Diagnosis Leg pain, bilateral- Primary Pain in soft tissues of limb Carpal tunnel syndrome, bilateral Carpal tunnel syndrome B12 deficiency Lumbar paraspinal muscle spasm Other symptoms referable to back Muscle wasting and atrophy, not elsewhere classified, multiple sites Neurogenic pain Cervical paraspinal muscle spasm Spasm of muscle Numbness Disturbance of skin sensation Leg pain, left Pain in soft tissues of limb Leg pain, right Pain in soft tissues of limb Bilateral leg weakness Muscle weakness (generalized) Arm weakness Other musculoskeletal symptoms referable to limbs Arm pain, right Pain in soft tissues of limb Arm pain, left Pain in soft tissues of limb Polyneuropathy- Primary Unspecified hereditary and idiopathic peripheral neuropathy B12 deficiency BEATRICE positive Lumbosacral radiculopathy at S1 Neurogenic pain- Primary Lumbosacral radiculopathy at S1 BEATRICE positive Carpal tunnel syndrome, bilateral Carpal tunnel syndrome B12 deficiency Lumbar paraspinal muscle spasm Other symptoms referable to back Cervical paraspinal muscle spasm Spasm of muscle Lumbosacral radiculopathy at S1- Primary Neurogenic pain Cervical paraspinal muscle spasm Spasm of muscle Lumbar paraspinal muscle spasm Other symptoms referable to back Carpal tunnel syndrome, bilateral Carpal tunnel syndrome B12 deficiency Cognitive decline- Primary Neurogenic pain Carpal tunnel syndrome, bilateral Carpal tunnel syndrome B12 deficiency Cognitive decline- Primary B12 deficiency Neurogenic pain Carpal tunnel syndrome, bilateral Carpal tunnel syndrome Cervical paraspinal muscle spasm Spasm of muscle Guyon syndrome, unspecified laterality Granulocytosis Other elevated white blood cell count documented in this encounter [facility]* Diagnosis Leg pain, bilateral- Primary Pain in soft tissues of limb Carpal tunnel syndrome, bilateral Carpal tunnel syndrome B12 deficiency Lumbar paraspinal muscle spasm Other symptoms referable to back Muscle wasting and atrophy, not elsewhere classified, multiple sites Neurogenic pain Cervical paraspinal muscle spasm Spasm of muscle Numbness Disturbance of skin sensation Leg pain, left Pain in soft tissues of limb Leg pain, right Pain in soft tissues of limb Bilateral leg weakness Muscle weakness (generalized) Arm weakness Other musculoskeletal symptoms referable to limbs Arm pain, right Pain in soft tissues of limb Arm pain, left Pain in soft tissues of limb Polyneuropathy- Primary Unspecified hereditary and idiopathic peripheral neuropathy B12 deficiency BEATRICE positive Lumbosacral radiculopathy at S1 Neurogenic pain- Primary Lumbosacral radiculopathy at S1 BEATRICE positive Carpal tunnel syndrome, bilateral Carpal tunnel syndrome B12 deficiency Lumbar paraspinal muscle spasm Other symptoms referable to back Cervical paraspinal muscle spasm Spasm of muscle Lumbosacral radiculopathy at S1- Primary Neurogenic pain Cervical paraspinal muscle spasm Spasm of muscle Lumbar paraspinal muscle spasm Other symptoms referable to back Carpal tunnel syndrome, bilateral Carpal tunnel syndrome B12 deficiency Cognitive decline- Primary Neurogenic pain Carpal tunnel syndrome, bilateral Carpal tunnel syndrome B12 deficiency Cognitive decline- Primary B12 deficiency Neurogenic pain Carpal tunnel syndrome, bilateral Carpal tunnel syndrome Cervical paraspinal muscle spasm Spasm of muscle Guyon syndrome, unspecified laterality Granulocytosis Other elevated white blood cell count Ulcer of right foot, limited to breakdown of skin (CMS/HCC)- Primary Ulcer of right foot with fat layer exposed (CMS/HCC) 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) documented in this encounter [facility]* Diagnosis High risk medication use- Primary Typical atrial flutter (Multi) Nonischemic cardiomyopathy (Multi) Other primary cardiomyopathies Hypercholesteremia Pure hypercholesterolemia BMI 28.0-28.9,adult BMI 30.0-30.9,adult Current smoker documented in this encounter [facility] Work Phone: Evaluation note* Diagnosis Carpal tunnel syndrome, bilateral- Primary Carpal tunnel syndrome documented in this encounter [facility]* Diagnosis Ulcer of right foot, limited to breakdown of skin (CMS/HCC)- Primary Cellulitis of right foot documented in this encounter [facility]* Diagnosis Ulcer of right foot, limited to breakdown of skin (CMS/HCC)- Primary Blister of right foot, initial encounter 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) documented in this encounter [facility] HealthcareHistory and physical note Author Arleen Stephen [facility] December 09, 2021 11:38am Note Date/Time December 09, 2021 11 :38am [facility] [address] [place] [address] Hospitalist H&P Signed Patient: Taye Gay MR#: [id number] : 1955 Acct:[id number] Age/Sex: 66 / F Adm Date: 2 Loc: ER Room: Type: [facility] ER Attending Dr: Copies to: NON [...] % (Auto) 9.6 % (.) 12/09/21 08:50 [place] % (Auto) 9.1 % (.) 12/09/21 08:50 Eos % (Auto) 1.1 % (.) 12/09/21 08:50 Baso % (Auto) 0.4 % (.) 12/09/21 08:50 Neut # (Auto) 10.3 x10E3/uL (1.8-7.7) H 12/09/21 08:50 Lymph # (Auto) 1.2 x10E3/uL (1.00-4.8) 12/09/21 08:50 [place] # (Auto) 1.2 x10E3/uL (0.0-0.8) H 12/09/21 [...] pH 5.5 (5.0-9.0) 12/09/21 08:35 Ur Specific [place] 1.030 (1.001-1.030) 12/09/21 08:35 Urine Protein Negative [...] will gradually resume DVT prophylaxis Documented By: Arleen Stephen MD 12/09/21 113 Signed By: <Electronically signed by Arleen Stephen MD> 12/09/21 1138 [facility] Work Phone: History and physical note Author Jluis Campos [facility] November 10, 2023 6:20am Note Date/Time November 10, 2023 6:11 am [facility] [address] [place] [address] Hospitalist H&P Signed Patient: Taye Gay MR#: [id number] : 1955 Acct:[id number] Age/Sex: 67 / F Adm Date: 4 Loc: 4N Room: [id number] Type: ADM IN Attending Dr: Jluis Campos [...] a battery of tests were performed including BEATRICE which was positive, and it appears that [...] negative unless noted below or in HPI [facility] Medical History History of esophageal stricture BMI [...] conc 300 unit/mL (1.5 mL) subcutaneous pen (Toubeccao SoloStar U-300 Insulin) 20 unit subcut DAILY 06/12/23 [History Confirmed 11/09/23] insulin lispro 100 unit/mL subcutaneous pen See Rx Instructions subcut ACHS 06/12/23 [History Confirmed 11/09/23] multivitamin 1 tab PO DAILY 06/12/23 [History Confirmed 11/09/23] pen needle, diabetic [Sure-Fine Pen Webster] 06/12/23 [History Confirmed 11/09/23] omeprazole 20 mg capsule,delayed release See Rx Instructions .Route .COMPLEX #90caps 07/01/23 [Rx Confirmed 11/09/23] flash glucose sensor (FreeStyle Brent 14 Day Sensor kit) #2 ea 07/22/23 [...] weaknesses were noted, patient unable to ambulate. Iexo-ns-drfy test was normal. No tremors or ataxia with pkunka-um-hrwn movements. Neuro: AOx3, CN II-VII intact. Moves [...] % (Auto) 26.0 % (.) 11/10/23 03:41 [place] % (Auto) 8.2 % (.) 11/10/23 03:41 Eos % (Auto) 3.7 % (.) 11/10/23 03:41 Baso % (Auto) 0.9 % (.) 11/10/23 03:41 Nucleat RBC Rel Count 0.1 /100 WBC (0-0.5) 11/10/23 03:41 Neut # (Auto) 5.2 x10E3/uL (1.8-7.7) 11/10/23 03:41 Lymph # (Auto) 2.2 x10E3/uL (1.00-4.8) 11/10/23 03:41 [place] # (Auto) 0.7 x10E3/uL (0.0-0.8) 11/10/23 03:41 [...] pH 6.0 (5.0-9.0) 11/10/23 05:02 Ur Specific [place] 1.007 (1.001-1.030) 11/10/23 05:02 Urine Protein Negative [...] at home. ? Recently had a positive BEATRICE with her neurologist Dr. Kincaid adenomas ? [...] signed by Jluis Campos DO> 11/10/23 0620 [facility] Work Phone: History and physical note Author Chico Hearn [facility] Note Date/Time April 29, 2024 6: 39am [facility] [address] [place] [address] Hospitalist H&P Signed Patient: Taye Gay MR#: [id number] : 1955 Acct:[id number] Age/Sex: 68 / F Adm Date: 4 Loc: Room: [address] [place] [address] Type: ADM IN Attending Dr: Chico Hearn DO Copies to: DO Chico Daniels DO~ HPI DATE OF EXAMINATION: 04/29/24 CHIEF COMPLAINT: dyphasia HISTORY OF PRESENT ILLNESS: This patient is a 68-year-old female who presented to the emergency department earlier this evening with concerns of weakness and slurred speech. Episode of slurred speech came on suddenly when she was on the phone with her boyfriend reportedly. Abnormal gait appearing drunk was also reported this afternoon byaccompanying family in the ER endorsed feelings of imbalance. Dysphagia had resolved upon arrival to the ER. Vitals in the ER were generally all stable although notably blood pressure around 10 PM went as high as 170/70 mmHg. This is in context of vitals charted earlier in the day during outpatient visits. 88/64 was exhibited around 10 AM this morning and thus represents a near 70 point swing and systolic blood pressure rise. This low blood pressure was thought to be contributing to some generalized weakness earlier in the day. She underwent a full stroke workup after her NIH score was 0 and she exhibited no focal deficits. CT angiography of the head and neck and noncontrast head CT were all nonacute and finding. Labs revealed a white blood cell count of 10.2, polycythemia H&H 16.0/48.1% withplatelets mildly low at 136. INR 1.3 consistent with use of Eliquis chronically. Complete metabolic panel is generally benign appearing with only notable exceptions hypomagnesemia 1.7, hyperglycemia 231. Urinalysis is notablefor elevated specific gravity 1.038, glucosuria greater than thousand, 2+ occultblood, squamous epithelial cells and presence of WBCs, RBCs and rare yeast. Evylink provided 3 to 24 mg of aspirin x 1 and IV magnesium once, 1 L normal saline and was admitted for further stroke workup. Notably has some low-level hypoxia on room air starting yesterday into this evening as low as 93%. Physical Examination: GENERAL APPEARANCE: Alert, up in bed AAOx3 HEENT: NCAT, MMM NECK: Neck soft w/o masses, no JVD CARDIAC: Normal S1 and S2. No S3, S4 or murmurs. LUNGS: Clear to auscultation bilaterally. no wheeze/rhonchi/rales ABDOMEN: Positive bowel sounds. Soft, nontender. No guarding or signs of an acute abdomen MUSCULOSKELETAL: No joint erythema or tenderness. EXTREMITIES: No clubbing, cyanosis or edema NEUROLOGICAL: No focal deficits SKIN: Skin normal color, texture and turgor with no lesions or eruptions. PSYCHIATRIC: Appropriate mood and affect Assessment and plan: 1. Dysphagia with likely transient ischemic attack 2. Abnormal gait 3. Generalized weakness Consulted neurology given unspecified history of TIA/stroke and known microvascular ischemic disease. Event is despite chronic DOAC and baby aspirin therapy and may warrant further evaluation. ABCD 2 score of 5-6 indicates high risk. Intensified statin ordered 80 mg nightly, received aspirin bolus. Will continueregular daily baby aspirin for now. Will defer any change in antiplatelet to neurology. Notably was evaluated for ambulatory dysfunction and weakness with astroke workup and neuroconsult in October 2023 and was to follow-up with her neurologist Dr. Kincaid at that time. An MRI of the brain was done at that time andunremarkable. Echocardiogram with preserved EF. 4. Polycythemia 5. Thrombocytopenia Patient follows regularly with hematology oncology. These are both chronic and stable findings. Unclear if at this mild severity if her polycythemia would portend any increased thrombotic vascular risk. 6. Insulin-dependent type 2 diabetes mellitus Continue home basal bolus insulin. Additionally home oral hypoglycemics including metformin kidney likely be resumed presuming no complicating in hospital kidney issues 7. Peripheral neuropathy Underwent rheumatologic workup was sent at that time with preliminary BEATRICE 1:320 positive. Extensive reflexive antibody titers were sent and all returned normal. Further extensive lab evaluation was ordered by her neurologist and is available for review including thallium, specialized laboratory evaluation for motor or sensory abnormalities 12/09/23, HIV screening, cryoglobulins, complement levels, heavy metal testing all of which returned benign. Rheumatology also has evaluated the patient has an outpatient with further antibody testing available for review 04/10/2024. Sedating home medications will be held for thetime being and brought back on board as needed given her weakness and initial date abnormalities 8. Hypomagnesemia Replete as needed, recheck a.m. labs 9. Chronic kidney disease stage II -at baseline 10. Microscopic hematuria 11. History of dementia, possible Alzheimer's dementia -continue home [id number] mg twice daily and donepezil 20 mg daily 12. Atrial fibrillation - continue Eliquis 5 mg twice daily for anticoagulationand carvedilol 12.5 mg twice daily. EKG in ER shows NSR 13. Hypoxia - no respiratory distress or cardiopulmonary complaints to accompany this. Will monitor telemetry and address as needed [facility] Medical History BMI 32.0-32.9,adult Abnormal thyroid blood test History of cardioversion History of esophageal stricture Cigarette nicotine dependence GERD (gastroesophageal reflux disease) [...] Allergies Allergies Sulfa (Sulfonamide Antibiotics) Allergy (Verified 04/28/24 19:33) Vomiting Home Medications aspirin 81 mg tablet,delayed release 81 mg PO DAILY 02/09/21 [History Confirmed 04/28/24] simvastatin 20 mg tablet 20 mg PO DAILY 02/09/21 [History Confirmed 04/28/24] docusate sodium 100 mg capsule (Stool Softener) 100 mg PO DAILY PRN [id number]/14/24 [History Confirmed 04/28/24] multivitamin 1 tab PO DAILY 06/12/23 [History Confirmed 04/28/24] pen needle, diabetic [Sure-Fine Pen Webster] 06/12/23 [History Confirmed 04/28/24] metformin 500 mg tablet See Rx Instructions .Route .COMPLEX #180 tabs 08/26/23 [Rx Confirmed 04/28/24] folic acid 1 mg tablet 1 mg PO DAILY 90 days #90 tabs 10/16/23 [Rx Confirmed 04/28/24] cyanocobalamin (vitamin B-12) 1,000 mcg capsule 1,000 mcg PO DAILY 11/14/23 [History Confirmed 04/28/24] apixaban 5 mg tablet (Eliquis) 5 mg PO BID #180 tabs 12/03/23 [Rx Confirmed 04/28/24] insulin lispro 100 unit/mL subcutaneous pen See Rx Instructions subcut ACHS #30 mL 12/23/23 [Rx Confirmed 04/28/24] omeprazole 20 mg capsule,delayed release See Rx Instructions .Route .COMPLEX #90caps 01/06/24 [Rx Confirmed 04/28/24] flash glucose sensor (FreeStyle Brent 14 Day Sensor kit) #2 ea 01/10/24 [Rx Confirmed 04/28/24] cyclobenzaprine 10 mg tablet 10 mg PO DIRECTED PRN muscle spasm 01/15/24 [History Confirmed 04/28/24] pregabalin 300 mg capsule 300 mg PO DAILY 01/15/24 [History Confirmed 04/28/24] magnesium oxide 400 mg (241.3 mg magnesium) tablet See Rx Instructions .Route .COMPLEX #180 tabs 01/29/24 [Rx Confirmed 04/28/24] carvedilol 12.5 mg tablet 12.5 mg PO BID 04/14/24 [History Confirmed 04/28/24] temazepam 30 mg capsule 30 mg PO DAILY 30 days #30 caps 04/20/24 [Rx Confirmed 04/28/24] Toujeo SoloStar U-300 Insulin 300 unit/mL (1.5 mL) subcutaneous pen (insulin glargine U-300 conc) 22 unit (0.0733 mL) subcut DAILY #9 mL 04/28/24 [Rx Confirmed 04/28/24] donepezil 10 mg tablet 20 mg PO DAILY 04/28/24 [History Confirmed 04/28/24] empagliflozin 25 mg tablet (Jardiance) 25 mg PO DAILY #90 tabs 04/28/24 [Rx Confirmed 04/28/24] lidocaine 5 % topical ointment 1 applic topical DAILY PRN pain 04/28/24 [History Confirmed 04/28/24] memantine 10 mg tablet 10 mg PO BID 04/28/24 [History Confirmed 04/28/24] nortriptyline 25 mg capsule 25 mg PO QHS 04/28/24 [History Confirmed 04/28/24] semaglutide 2 mg/dose (8 mg/3 mL) subcutaneous pen injector (Ozempic) 2 mg (0.75mL) subcut QWEEK #9 mL 04/28/24 [Rx Confirmed 04/28/24] Exam Physical Exam Vital Signs: Temp Pulse Resp BP Pulse Ox O2 Del Method 98.1 F 77 18 160/70 H 96 Room Air 04/28/24 19:39 04/28/24 22:03 04/28/24 22:03 04/28/24 22:03 04/28/24 22:03 04/28/24 22:03 Results - Hospitalist H&P Lab Results Labs: Laboratory Last Values Corrected WBC 10.2 X10E3/uL (3.8-11.6) 04/28/24 19:54 Uncorrected WBC Count 10.9 x10E3/uL (3.8-11.6) 04/28/24 19:54 RBC 5.06 x10E6/uL (3.60-5.00) H 04/28/24 19:54 Hgb 16.0 g/dL (11.8-15.4) H 04/28/24 19:54 Hct 48.1 % (34.0-46.4) H 04/28/24 19:54 MCV 95.1 fl (80-100) 04/28/24 19:54 MCH 31.7 pg (24.7-34.3) 04/28/24 19:54 MCHC 33.3 g/dL (32.0-35.0) 04/28/24 19:54 RDW 15.4 % (11.9-15.3) H 04/28/24 19:54 Plt Count 136 x10E3/uL (150-450) L 04/28/24 19:54 MPV 9.9 fl (6.3-10.7) 04/28/24 19:54 Neut % (Auto) 64.0 % (.) 04/28/24 19:54 Lymph % (Auto) 24.6 % (.) 04/28/24 19:54 [place] % (Auto) 7.6 % (.) 04/28/24 19:54 Eos % (Auto) 2.7 % (.) 04/28/24 19:54 Baso % (Auto) 1.1 % (.) 04/28/24 19:54 Nucleat RBC Rel Count 0.2 /100 WBC (0-0.5) 04/28/24 19:54 Neut # (Auto) 6.5 x10E3/uL (1.8-7.7) 04/28/24 19:54 Lymph # (Auto) 2.5 x10E3/uL (1.00-4.8) 04/28/24 19:54 [place] # (Auto) 0.8 x10E3/uL (0.0-0.8) 04/28/24 19:54 Eos # (Auto) 0.3 x10E3/uL (0.0-0.45) 04/28/24 19:54 Baso # (Auto) 0.1 x10E3/uL (0.0-0.2) 04/28/24 19:54 Monocyte Dist Width 20.25 % (0.00-20.00) H 04/28/24 19:54 Platelet Estimate Decreased (Normal) 04/28/24 19:54 Plt Morphology Comment Normal (Normal) 04/28/24 19:54 RBC Morphology N/A 04/28/24 19:54 Polychromasia Slight 04/28/24 19:54 Anisocytosis Slight 04/28/24 19:54 PT 15.1 Seconds (9.0-12.9) H 04/28/24 19:54 INR 1.3 04/28/24 19:54 APTT 30.0 Seconds (25.1-36.5) 04/28/24 19:54 PHA Creatinine Clear 77.21 04/28/24 19:54 Sodium 137 mmol/L (136-145) 04/28/24 19:54 Potassium 3.9 mmol/L (3.5-5.1) 04/28/24 19:54 Chloride 104 mmol/L (98-107) 04/28/24 19:54 Carbon Dioxide 24.2 mmol/L (21.0-31.0) 04/28/24 19:54 Anion Gap 12.7 mEq/L (6.0-15.0) 04/28/24 19:54 BUN 11 mg/dL (7-25) 04/28/24 19:54 Creatinine 0.85 mg/dL (0.60-1.20) 04/28/24 19:54 Est GFR (CKD-EPI) > 60.0 mL/Min 04/28/24 19:54 Glucose 231 mg/dL (70-100) H 04/28/24 19:54 Calcium 9.7 mg/dL (8.6-10.3) 04/28/24 19:54 Magnesium 1.7 mg/dL (1.9-2.7) L 04/28/24 19:54 Total Bilirubin 0.3 mg/dl (0.3-1.0) 04/28/24 19:54 AST 25 U/L (13-39) 04/28/24 19:54 ALT 20 U/L (7-52) 04/28/24 19:54 Alkaline Phosphatase 86 U/L (34-104) 04/28/24 19:54 Troponin I High Sens 5.1 pg/mL (0.0-15.0) 04/28/24 19:54 B-Natriuretic Peptide 25.0 pg/mL (5-100) 04/28/24 19:54 Total Protein 6.8 gm/dL (6.4-8.9) 04/28/24 19:54 Albumin 3.7 gm/dL (3.5-5.7) 04/28/24 19:54 Globulin 3.1 gm/dL 04/28/24 19:54 Albumin/Globulin Ratio 1.2 04/28/24 19:54 Urine Color Light-yellow (Yellow) 04/28/24 22:02 Urine Appearance Clear (Clear) 04/28/24 22:02 Urine pH 5.5 (5.0-9.0) 04/28/24 22:02 Ur Specific [place] 1.038 (1.001-1.030) H 04/28/24 22:02 Urine Protein Negative mg/dL (Negative) 04/28/24 22:02 Urine Glucose (UA) >=1000 mg/dL (Normal) H 04/28/24 22:02 Urine Ketones Negative (Negative) 04/28/24 22:02 Urine Occult Blood 2+ (Negative) H 04/28/24 22:02 Urine Nitrite Negative (Negative) 04/28/24 22:02 Urine Bilirubin Negative (Negative) 04/28/24 22:02 Urine Urobilinogen Normal mg/dL (Normal) 04/28/24 22:02 Ur Leukocyte Esterase Negative (Negative) 04/28/24 22:02 Urine RBC 10-19 /HPF (0-4) H 04/28/24 22:02 Urine WBC 5-9 /HPF (0-4) H 04/28/24 22:02 Ur Squamous Epith Cells 3-4 /HPF (0-2) H 04/28/24 22:02 Urine Bacteria Rare /HPF (None Seen) 04/28/24 22:02 Hyaline Casts 0-8 /LPF (0-8) 12/31/24 22:02 Urine Yeast (Budding) Rare /HPF (None Seen) H 04/28/24 22:02 COVID-19 Clin Com Not detected (Not Detecte) 04/28/24 20:19 Microbiology Results Micro: Microbiology - Results from entire visit 04/28/24 20:19 Nasopharyngeal Respiratory Panel (PCR) - Final Assessment & Plan Assessment/Plan (1) TIA (transient ischemic attack): Plan . IP vs OBS Justification Based on differential dx, clinical care plan, and risk of adverse events, if untreated, in my clinical judgement this patient requires an acute care setting as: INPATIENT because of an expectation of an over 2 midnight stay. Estimated length of stay (# of days): 3 Documented By: Chico Hearn DO 04/28/24 57 Signed By: <Electronically signed by Chico Hearn DO> 04/29/24 0639 [facility] Work Phone: Histmyp general Narrative - Reported* Type Description Date Medical History HTN Medical History Diabetes Medical History Obesity Medical History HLP Medical History tonsillectomy Medical History hysterectomy Medical History Cataracts removed Bilateral Medical History Upper eye lift Surgical History tonsillectomy Surgical History hysterectomy Surgical History cataracts, bilaterally Surgical History eye lid surgery Surgical History removed cervix 12/2018 [employer] Other [facility] general Narrative - Reported* Type Description Date Medical History HTN Medical History Diabetes Medical History Obesity Medical History HLP Medical History tonsillectomy Medical History hysterectomy Medical History Cataracts removed Bilateral Medical History Upper eye lift Surgical History tonsillectomy Surgical History hysterectomy Surgical History cataracts, bilaterally Surgical History eye lid surgery Surgical History removed cervix 12/2018 Hospitalization History See Above [employer] Other [facility] general Narrative - Reported* Type Description Date Medical History HTN Medical History Diabetes Medical History Obesity Medical History HLP Medical History tonsillectomy Medical History hysterectomy Medical History Cataracts removed Bilateral Medical History Upper eye lift Surgical History tonsillectomy Surgical History partial hysterectomy Surgical History cataracts, bilaterally Surgical History eye lid surgery--bilateral Surgical History removed cervix 12/2018 Hospitalization History See Above [employer] Other [facility] general Narrative - Reported* Type Description Date [...] History UTI and gallbladder jami yusef 11/2021 [employer] Other [facility] general Narrative - Reported* Type Description Date [...] History UTI and gallbladder jami yusef 11/2021 [employer] [facility] Work Phone: [facility] Work Phone: [facility] Work Phone: [facility] Work Phone: Hospital Discharge instructionsAmbulatory Orders* [...] - Care to be managed by PCP [facility] Work Phone: Hospital Discharge instructions Additional Instructions I may not have addressed or treated all of your medical illnesses or the abnormal blood work or imaging studies during this hospitalization. Please ask your primary care provider to obtain [facility] records entirely to follow up on all of the abnormal physical, laboratory, and imaging findings that I have not addressed. Please return back to the emergency room or seek medical attention if your symptoms worsen or return. You are taking 2 medications that could cause you to have side effect such as confusion, hallucination, weakness, slurred speech. Please consult with your primary care doctor and other prescribers to simplify your medication regimen to reduce your risk having side effect or having drug drug interaction. Discharging you from [facility] does not mean that your medical care ends here and now. You may still need additional monitoring, work up, investigation, and treatment plan to be handled from this point on by out patient providers including your primary care provider and specialists. For any medication question, please contact your retail pharmacist or your primary care provider. Thank you.[facility] Work Phone: Progress note Author Arleen Stephen [facility] December 10, 2021 11:26am Note Date/Time December 10, 2021 11 :26am [facility] [address] [place] [address] Hospitalist Progress Note Signed Patient: Taye Gay MR#: [id number] : 1955 Acct:[id number] Age/Sex: 66 / F Adm Date: 2 Loc: Room: [address] [place] [address] Type: ADM IN Attending Dr: Arleen Stephen MD Copies to: ~ Date of [...] 1,000 Ml IV 12/09/22 11:29 75 mls/hr .[id number] PARMJIT Administration Ceftriaxone Sodium 1 gm in [...] will gradually resume DVT prophylaxis Documented By: Arleen Stephen MD 12/10/211123 Signed By: <Electronically signed by Arleen Stephen MD> 12/10/21 1126 [facility] Work Phone: Progress note Author Arleen Stephen [facility] December 11, 2021 1:33pm Note Date/Time December 11, 2021 1: 30pm [facility] [address] [place] [address] Hospitalist Progress Note Signed Patient: Taye Gay MR#: [id number] : 1955 Acct:[id number] Age/Sex: 66 / F Adm Date: 2 Loc: Room: [address] [place] [address] Type: ADM INOo Attending Dr: Arleen Stephen MD Copies to: ~ Date of [...] 12/10/21 09:00 12/11/21 08:00 Aspirin 81 Mg Tablet. PO 12/10/22 08:59 [...] continue to hold DVT prophylaxis Documented By: Arleen Stephen MD 12/11/21 1326 Signed By: <Electronically signed by Arleen Stephen MD> 12/11/21 1333 [facility] Work Phone: Progrfzd note Author Walter Montgomery [facility] December 12, 2021 8:07am Note Date/Time December 12, 2021 8: 07am [facility] [address] [place] [address] General Surgery Progress Note Signed Patient: Taye Gay MR#: [id number] : 1955 Acct:[id number] Age/Sex: 66 / F Adm Date: 2 Loc: Room: [address] [place] [address] Type: ADM INOo Attending Dr: Arleen Stephen MD Copies to: ~ Date of [...] 81 Mg Tablet.) 81 mg PO DAILY [facility] Stop: 12/10/22 08:59 Last Admin: 12/11/21 08:00 Dose: 81 mg Atorvastatin Calcium (Atorvastatin 10 Mg Tablet) 10 mg PO DAILY [facility] Stop: 12/10/22 08:59 Last Admin: 12/11/21 08:00 Dose: 10 mg Dextrose (Dextrose 50% In Water 25 Gm/50 Ml Syringe) 0 gm IV-PUSH PRN PRN PRN Reason: Hypoglycemia Stop: 12/09/22 11:18 Enoxaparin Sodium (Enoxaparin 40 Mg/0.4 Ml Syringe) 40 mg SUBCUT DAILY@10 [facility] Stop: 12/10/22 09:59 Last Admin: 12/11/21 [...] Ml) 1,000 mls @ 100 mls/hr IV .[id number] Stop: 12/12/22 00:00 Last Admin: 12/12/21 00:10 Dose: 100 mls/hr Insulin Aspart (Insulin Aspart 300 Units/3 Ml Insuln.Pen) 0 units SUBCUT TID.WM.[facility]; Protocol Stop: 12/09/22 11:59 Last Admin: 12/11/21 21:21 Dose: 3 units Nortriptyline HCl (Nortriptyline 25 Mg Capsule) 50 mg PO BID [facility] Stop: 12/09/22 20:59 Last Admin: 12/11/21 21:20 Dose: 50 mg Omeprazole (Omeprazole 20 Mg Capsule.Dr) 20 mg PO DAILY [facility] Stop: 12/10/22 08:59 Last Admin: 12/11/21 08:00 Dose: 20 mg Ondansetron HCl (Ondansetron 4 Mg/2 Ml Vial) 4 mg IV-PUSH Q8H PRN PRN Reason: Nausea And Vomiting Stop: 12/09/22 11:18 Pioglitazone HCl (Pioglitazone 15 Mg Tablet) 15 mg PO DAILY [facility] Stop: 12/10/22 08:59 Last Admin: 12/11/21 [...] 15 Mg Capsule) 30 mg PO QHS [facility] Stop: 12/09/22 21:59 Last Admin: 12/11/21 [...] % (Auto) 66.8, Lymph % (Auto) 21.0, [place] % (Auto) 9.2, Eos % (Auto) 2.6, Baso % (Auto) 0.4, Neut # (Auto) 4.1, Lymph # (Auto) 1.3, [place] # (Auto) 0.6, Eos # (Auto) 0.2, [...] By: <Electronically signed by DO Walter Montgomery> 12/12/21806 [facility] Work Phone: Progress note Author Arleen Stephen [facility] December 12, 2021 1:20pm Note Date/Time December 12, 2021 1: 20pm [facility] [address] [place] [address] Hospitalist Progress Note Signed Patient: Taye Gay MR#: [id number] : 1955 Acct:[id number] Age/Sex: 66 / F Adm Date: 2 Loc: Room: [address] [place] [address] Type: ADM INOo Attending Dr: Arleen Stephen MD Copies to: ~ Date of [...] continue to hold DVT prophylaxis Documented By: Arleen Stephen MD 12/12/21 1311 Signed By: <Electronically signed by Arleen Stephen MD> 12/12/21 1320 [facility] Work Phone: Progress note Author Teresa Strong [facility] December 12, 2021 8:43pm Note Date/Time December 12, 2021 2: 49pm [facility] [address] [place] [address] Urology Progress Note Signed Patient: Taye Gay MR#: [id number] : 1955 Acct:[id number] Age/Sex: 66 / F Adm Date: 2 Loc: Room: [address] [place] [address] Type: ADM INOo Attending Dr: Arlene Stephen MD Copies to: ~ <Ingrid Sommers [...] % (Auto) 72.7, Lymph % (Auto) 16.1, [place] % (Auto) 8.8, Eos % (Auto) 2.1, Baso % (Auto) 0.3, Neut # (Auto) 5.3, Lymph # (Auto) 1.2, [place] # (Auto) 0.6, Eos# (Auto) 0.2, Baso [...] % (Auto) 66.8, Lymph % (Auto) 21.0, [place] % (Auto) 9.2, Eos % (Auto) 2.6, Baso % (Auto) 0.4, Neut # (Auto) 4.1, Lymph # (Auto) 1.3, [place] # (Auto) 0.6, Eos # (Auto) 0.2, [...] Preliminary No Growth 3 Days Assessment/Plan <Ingrid Sommers DO, RES - Last Filed: [...] 12/12/21 1446 Signed By: <Electronically signed by RES Ingrid Sommers> 12/12/21 1451 <Electronically signed by Teresa Strong MD> 12/12/212042 [facility] Work Phone: Progress note Author Walter Montgomery [facility] December 13, 2021 8:52am Note Date/Time December 13, 2021 8: 52am [facility] [address] [place] [address] General Surgery Progress Note Signed Patient: Taye Gay MR#: [id number] : 1955 Acct:[id number] Age/Sex: 66 / F Adm Date: 2 Loc: Room: [address] [place] [address] Type: ADM INOo Attending Dr: Wilmer Vance [...] 81 Mg Tablet.) 81 mg PO DAILY [facility] Stop: 12/10/22 08:59 Last Admin: 12/12/21 10:33 Dose: Not Given Atorvastatin Calcium (Atorvastatin 10 Mg Tablet) 10 mg PO DAILY [facility] Stop: 12/10/22 08:59 Last Admin: 12/12/21 10:33 Dose: Not Given Cyanocobalamin (Cyanocobalamin 1,000 Mcg Tablet) 1,000 mcg PO DAILY [facility] Stop: 12/13/22 08:59 Dextrose (Dextrose 50% In Water 25 Gm/50 Ml Syringe) 0 gm IV-PUSH PRN PRN PRN Reason: Hypoglycemia Stop: 12/09/22 11:18 Docusate Sodium (Docusate 100 Mg Capsule) 100 mg PO TID [facility] Stop: 12/12/22 21:59 Last Admin: 12/12/21 22:26 Dose: 100 mg Enoxaparin Sodium (Enoxaparin 40 Mg/0.4 Ml Syringe) 40 mg SUBCUT DAILY@10 [facility] Stop: 12/10/22 09:59 Last Admin: 12/12/21 [...] 50 mls @ 100 mls/hr IV Q24H [facility] Last Admin: 12/12/21 11:57 Dose: 100 mls/hr Sodium Chloride (0.9% Sodium Chloride 1,000 Ml) 1,000 mls @ 100 mls/hr IV .[id number] Stop: 12/12/22 00:00 Last Infusion: 12/13/21 03:35 Dose: Infused Lactated Ringer's (Lactated Ringers) 1,000 mls @ 20 mls/hr IV .Q24H ONE Stop: 12/13/21 11:13 Last Infusion: 12/13/21 03:31 Dose: Infused Insulin Aspart (Insulin Aspart 300 Units/3 Ml Insuln.Pen) 0 units SUBCUT TID.WM.[facility]; Protocol Stop: 12/09/22 11:59 Last Admin: 12/13/21 08:07 Dose: 4 units Nortriptyline HCl (Nortriptyline 25 Mg Capsule) 50 mg PO BID [facility] Stop: 12/09/22 20:59 Last Admin: 12/12/21 22:27 Dose: 50 mg Omeprazole (Omeprazole 20 Mg Capsule.Dr) 20 mg PO DAILY [facility] Stop: 12/10/22 08:59 Last Admin: 12/12/21 10:33 Dose: Not Given Ondansetron HCl (Ondansetron 4 Mg/2 Ml Vial) 4 mg IV-PUSH Q6H PRN PRN Reason: Nausea And Vomiting Stop: 12/12/22 18:19 Pioglitazone HCl (Pioglitazone 15 Mg Tablet) 15 mg PO DAILY [facility] Stop: 12/10/22 08:59 Last Admin: 12/12/21 [...] QHS PARMJIT Stop: 12/09/22 21:59 Last Admin: 12/12/21 22:27 [...] % (Auto) 90.4, Lymph % (Auto) 7.7, [place] % (Auto) 1.8, Eos % (Auto) 0.0, Baso % (Auto) 0.1, Neut # (Auto) 8.5 H, Lymph # (Auto) 0.7 L, [place] # (Auto) 0.2, Eos # (Auto) 0.0, [...] % (Auto) 72.7, Lymph % (Auto) 16.1, [place] % (Auto) 8.8, Eos % (Auto) 2.1, Baso % (Auto) 0.3, Neut # (Auto) 5.3, Lymph # (Auto) 1.2, [place] # (Auto) 0.6, Eos# (Auto) 0.2, Baso [...] % (Auto) 66.8, Lymph % (Auto) 21.0, [place] % (Auto) 9.2, Eos % (Auto) 2.6, Baso % (Auto) 0.4, Neut # (Auto) 4.1, Lymph # (Auto) 1.3, [place] # (Auto) 0.6, Eos # (Auto) 0.2, [...] obstruction Status: Acute Documented By: Walter Montgomery, 12/13/21 0849 Signed By: <Electronically signed by DO Walter Montgomery> 12/13/21 0852 [facility] Work Phone: Progress note Author Priscilla Lang [facility] Note Date/Time April 29, 2024 11 :02am [facility] [address] [place] [address] Hospitalist Progress Note Signed Patient: Taye Gay MR#: [id number] : 1955 Acct:[id number] Age/Sex: 68 / F Adm Date: 4 Loc: Room: [address] [place] [address] Type: ADM IN Attending Dr: Priscilla Lang MD Copies to: ~ Date of Service: 04/29/2024 Subjective Subjective Narrative: This patient is a 68-year-old female who presented to the emergency department earlier this evening with concerns of weakness and slurred speech. Episode of slurred speech came on suddenly when she was on the phone with her boyfriend reportedly. Abnormal gait appearing drunk was also reported this afternoon byaccompanying family in the ER endorsed feelings of imbalance. Dysphagia had resolved upon arrival to the ER. Vitals in the ER were generally all stable although notably blood pressure around 10 PM went as high as 170/70 mmHg. This is in context of vitals charted earlier in the day during outpatient visits. 88/64 was exhibited around 10 AM this morning and thus represents a near 70 point swing and systolic blood pressure rise. This low blood pressure was thought to be contributing to some generalized weakness earlier in the day. She underwent a full stroke workup after her NIH score was 0 and she exhibited no focal deficits. CT angiography of the head and neck and noncontrast head CT were all nonacute and finding. Labs revealed a white blood cell count of 10.2, polycythemia H&H 16.0/48.1% withplatelets mildly low at 136. INR 1.3 consistent with use of Eliquis chronically. Complete metabolic panel is generally benign appearing with only notable exceptions hypomagnesemia 1.7, hyperglycemia 231. Urinalysis is notablefor elevated specific gravity 1.038, glucosuria greater than thousand, 2+ occultblood, squamous epithelial cells and presence of WBCs, RBCs and rare yeast. Evyhas provided 3 to 24 mg of aspirin x 1 and IV magnesium once, 1 L normal saline and was admitted for further stroke workup. Notably has some low-level hypoxia on room air starting yesterday into this evening as low as 93%. Physical Examination: GENERAL APPEARANCE: Alert, up in bed AAOx3 HEENT: NCAT, MMM NECK: Neck soft w/o masses, no JVD CARDIAC: Normal S1 and S2. No S3, S4 or murmurs. LUNGS: Clear to auscultation bilaterally. no wheeze/rhonchi/rales ABDOMEN: Positive bowel sounds. Soft, nontender. No guarding or signs of an acute abdomen MUSCULOSKELETAL: No joint erythema or tenderness. EXTREMITIES: No clubbing, cyanosis or edema NEUROLOGICAL: No focal deficits SKIN: Skin normal color, texture and turgor with no lesions or eruptions. PSYCHIATRIC: Appropriate mood and affect Assessment and plan: 1. Dysphagia with likely transient ischemic attack 2. Abnormal gait 3. Generalized weakness Consulted neurology given unspecified history of TIA/stroke and known microvascular ischemic disease. Event is despite chronic DOAC and baby aspirin therapy and may warrant further evaluation. ABCD 2 score of 5-6 indicates high risk. Intensified statin ordered 80 mg nightly, received aspirin bolus. Will continueregular daily baby aspirin for now. Will defer any change in antiplatelet to neurology. Notably was evaluated for ambulatory dysfunction and weakness with astroke workup and neuroconsult in October 2023 and was to follow-up with her neurologist Dr. Kincaid at that time. An MRI of the brain was done at that time andunremarkable. Echocardiogram with preserved EF. 4. Polycythemia 5. Thrombocytopenia Patient follows regularly with hematology oncology. These are both chronic and stable findings. Unclear if at this mild severity if her polycythemia would portend any increased thrombotic vascular risk. 6. Insulin-dependent type 2 diabetes mellitus Continue home basal bolus insulin. Additionally home oral hypoglycemics including metformin kidney likely be resumed presuming no complicating in hospital kidney issues 7. Peripheral neuropathy Underwent rheumatologic workup was sent at that time with preliminary BEATRICE 1:320 positive. Extensive reflexive antibody titers were sent and all returned normal. Further extensive lab evaluation was ordered by her neurologist and is available for review including thallium, specialized laboratory evaluation for motor or sensory abnormalities 12/09/23, HIV screening, cryoglobulins, complement levels, heavy metal testing all of which returned benign. Rheumatology also has evaluated the patient has an outpatient with further antibody testing available for review 04/10/2024. Sedating home medications will be held for the time being and brought back on board as needed given her weakness and initial date abnormalities 8. Hypomagnesemia Replete as needed, recheck a.m. labs 9. Chronic kidney disease stage II -at baseline 10. Microscopic hematuria 11. History of dementia, possible Alzheimer's dementia -continue home [id number] mg twice daily and donepezil 20 mg daily 12. Atrial fibrillation - continue Eliquis 5 mg twice daily for anticoagulationand carvedilol 12.5 mg twice daily. EKG in ER shows NSR 13. Hypoxia - no respiratory distress or cardiopulmonary complaints to accompany this. Will monitor telemetry and address as needed Exam Physical Exam Vital Signs: Temp Pulse Resp BP Pulse Ox O2 Del Method 97.4 F L 60 18 114/74 92 L Room Air 04/29/24 08:00 04/29/24 08:00 04/29/24 08:00 04/29/24 08:00 04/29/24 08:00 04/29/24 08:00 Objective Lab Results 04/28/24 19:54 04/29/24 06:10 Microbiology Results Microbiology 04/28/24 20:19 Nasopharyngeal Respiratory Panel (PCR) - Final Meds Allergies and Active Meds Allergies Sulfa (Sulfonamide Antibiotics) Allergy (Verified 04/28/24 19:33) Vomiting Active Meds: Active Medications Generic Name Dose Route Start Last Admin Trade Name Freq PRN Reason Stop Dose Admin Apixaban 5 mg 04/29/24 09:00 04/29/24 08:02 Apixaban 5 Mg Tablet PO 04/29/25 08:59 5 mg BID PARMJIT Administration Aspirin 81 mg 04/29/24 09:00 04/29/24 08:02 Aspirin 81 Mg Tablet.Dr PO 04/29/25 08:59 81 mg DAILY PARMJIT Administration Atorvastatin Calcium 80 mg 04/28/24 22:45 04/28/24 23:58 Atorvastatin 80 Mg Tablet PO 04/28/25 22:44 80 mg QPM PARMJIT Administration Carvedilol 12.5 mg 04/29/24 09:00 04/29/24 08:02 Carvedilol 12.5 Mg Tablet PO 04/29/25 08:59 12.5 mg BID PARMJIT Administration Cyanocobalamin 1,000 mcg 04/29/24 09:00 04/29/24 08:02 Cyanocobalamin 1,000 Mcg Tablet PO 04/29/25 08:59 1,000 mcg DAILY PARMJIT Administration Cyclobenzaprine HCl 10 mg 04/29/24 03:51 Cyclobenzaprine 10 Mg Tablet PO 04/29/25 03:50 HS PRN muscle spasm Dapagliflozin 10 mg 04/29/24 09:00 04/29/24 08:02 Dapagliflozin 10 Mg Tablet PO 04/29/25 08:59 10 mg DAILY PARMJIT Administration Dextrose 0 gm 04/29/24 05:23 Dextrose 50% In Water 25 Gm/50 Ml Syringe IV-PUSH 04/29/25 05:22 PRN PRN Hypoglycemia Docusate Sodium 100 mg 04/29/24 03:51 Docusate 100 Mg Capsule PO 04/29/25 03:50 DAILY PRN constipation Donepezil HCl 20 mg 04/29/24 09:00 04/29/24 08:02 Donepezil 10 Mg Tablet PO 04/29/25 08:59 20 mg DAILY PARMJIT Administration Folic Acid 1 mg 04/29/24 09:00 04/29/24 08:02 Folic Acid 1 Mg Tablet PO 04/29/25 08:59 1 mg DAILY PARMJIT Administration Glucose 0 gm 04/29/24 05:23 Dextrose 40% Gel 15 Gm Tube PO 04/29/25 05:22 PRN PRN Hypoglycemia Insulin Aspart 0 units 04/29/24 08:00 04/29/24 08:33 Insulin Aspart 300 Units/3 Ml SUBCUT 04/29/25 07:59 3 units TID.WM.HS PARMJIT Administration Protocol Insulin Glargine 18 units 04/29/24 09:00 04/29/24 08:33 Insulin Glargine 300 Units/3 Ml Insuln.Pen SUBCUT 04/29/25 08:59 18 units DAILY PARMJIT Administration Lidocaine 1 applic 04/29/24 03:51 Lidocaine 5% Oint 35 Gm Tube TOPICAL 04/29/25 03:50 DAILY PRN pain Memantine 10 mg 04/29/24 09:00 04/29/24 08:02 Memantine 10 Mg Tablet PO 04/29/25 08:59 10 mg BID PARMJIT Administration Multivitamins 1 tab 04/29/24 09:00 04/29/24 08:02 Multivitamin 1 Tab Tablet PO 04/29/25 08:59 1 tab DAILY PARMJIT Administration Pom Ozempic ( 2 mg 04/29/24 09:00 Semaglutide) 2 Mg/ SUBCUT 04/29/25 08:59 Dose (8 Mg/3 Ml) Pen QWEEK PARMJIT Injector) Pantoprazole Sodium 40 mg 04/29/24 09:00 04/29/24 08:02 Pantoprazole 40 [address] Tablet.Dr MINOR 04/29/25 08:59 40 mg DAILY PARMJIT Administration Sodium Chloride 0 ml 04/28/24 19:32 04/28/24 21:22 Sodium Chloride 0.9 % 10 Ml Syringe IV-PUSH 04/28/25 19:31 10 ml PRN PRN Administration Flush A&P - Hospitalist Assessment/Plan (1) TIA (transient ischemic attack): Plan The aforementioned paragraph was documented by my colleague. I saw patient this morning. She is awake. She is able to answer questions. She is able to follow command. She stated that she feels much better. She denies any headache. She denies any chest or abdominal pain. No distress. Chest is clear, heart is regular. Abdomen soft. Symmetrical motor and tone. Normal speech. Transient change in mental status as described on the H&P Patient is already on Eliquis and aspirin to be seen by neurology team Patient is on few medications that could potentially cause encephalopathy. Hold potential offending medications. Requested urine drug screen to exclude toxic encephalopathy. Patient has mild UTI, not expected to cause change in mentation. Requested urine culture History of paroxysmal A-fib on Eliquis. Continue Eliquis Consider repeat echocardiogram if recommended by neurology Diabetes Continue long-acting as well as sliding scale coverage. Titrate accordingly. Hypomagnesemia status post repletion Recheck level in AM. Multiple other medical issues not listed above that would need to be addressed. Could be addressed electively while in house if required and the subsequently postdischarge to be handled by PCP in collaboration with outpatient providers. Documented By: Priscilla Lang MD 04/29/24 1059 Signed By: <Electronically signed by Priscilla Lang MD> 04/29/24 1102 [facility] Work Phone: Progress note Author Lit Clark [facility] Note Date/Time April 30, 2024 12 :30pm [facility] [address] [place] [address] Neurology Progress Note Signed with Addenda Patient: Taye Gay MR#: [id number] : 1955 Acct:[id number] Age/Sex: 68 / F Adm Date: 4 Loc: Room: [address] [place] [address] Type: ADM IN Attending Dr: Priscilla Lang MD Copies to: ~ ADDENDUM1 Patient has refused to remove her nail estonian for MRI. Unable to confirm whether or not new stroke is present. Continue aspirin and Eliquis for secondary stroke prevention. Please refer to my assessment and plan for furtherrecommendations. Addendum Documented By: Lit Clark DO 04/30/24 1230 Addendum Signed By: <Electronically signed by Lit Clark DO> 04/30/24 1230 Date of Service: 04/30/2024 Subjective Subjective Narrative: I saw this patient this morning in follow-up. No acute events overnight. No new neurological concerns. Still awaiting MRI. Patient is awake alert and talking to me. She was eating some breakfast. She feels at baseline. Review of Systems Review of Systems All other systems reviewed & are negative unless noted below or in HPI Exam Physical Exam Vital Signs: Temp Pulse Resp BP Pulse Ox O2 Del Method 97.8 F 70 16 142/80 H 96 Room Air 04/29/24 20:00 04/30/24 04:00 04/30/24 04:00 04/30/24 04:00 04/30/24 04:00 04/30/24 04:00 Narrative: Narrative: GENERAL EXAM: Patient is alert and oriented x3. In general the patient is well-appearing. NEURO EXAM: Cranial nerve II. Vision is intact. Pupils are equal Cranial nerve III, IV and . Extraocular muscles are intact. No nystagmus is appreciated Cranial nerve V and VII. No facial asymmetry is appreciated. Temperature and pinprick is equal bilaterally Cranial nerve VIII hearing is intact Cranial nerve IX and X speech is clear fluent. Palate elevates symmetrically Cranial nerve XI head turn side to side full range of motion. Shoulder shrug isequal bilaterally Cranial nerve XII tongue is midline full range of motion MOTOR EXAM: Strength is 5/5 throughout. No pronator drift was appreciated Muscle tone and bulk are normal SENSORY EXAM: Denies paresthesias CEREBELLAR EXAM: Alternating movements are intact. Finger to nose normal Gait not assessed Objective Vital Signs Vital Signs: Vital Signs - 24 hr 04/29/24 08:00 04/29/24 08:00 04/29/24 12:43 Temperature 97.4 F L 97.3 F L Pulse Rate 60 69 Respiratory Rate 18 18 Blood Pressure 114/74 125/82 02 Sat by Pulse Oximetry 92 L 94 L Oxygen Delivery Method Room Air Room Air Room Air 04/29/24 15:07 04/29/24 20:00 04/29/24 20:00 Temperature 97.4 F L 97.8 F Pulse Rate 67 65 Respiratory Rate 18 16 Blood Pressure 106/65 121/68 02 Sat by Pulse Oximetry 95 97 Oxygen Delivery Method Room Air Room Air Room Air 04/30/24 00:00 04/30/24 04:00 Temperature Pulse Rate 70 Respiratory Rate 16 16 Blood Pressure 118/60 142/80 H 02 Sat by Pulse Oximetry 95 96 Oxygen Delivery Method Room Air Room Air Labs 04/30/24 05:31 04/29/24 06:10 Therapy Recommendations Therapy Recommendations: OT Recommendations OT Recommended Discharge Home with Home Health Location OT Recommended Services at Physical Therapy Discharge PT Recommendations DC Physical Therapy Due To: At Baseline PT Recommended Discharge Home,Home with Home Health Location Assessment/Plan (1) Atrial fibrillation: Qualifiers: Atrial fibrillation type: paroxysmal Qualified Code(s): I48.0 - Paroxysmal atrial fibrillation (2) Generalized weakness: (3) Insulin dependent diabetes mellitus: Plan It is my impression that the patient suffered an episode of slurred speech, weakness and imbalance. Patient was noted to have large fluctuations in blood pressure as well as mild hypoxia and dehydration. Patient did have CT and CT angiogram which were unremarkable. Patient was admitted for stroke evaluation back in October 2023 and had an unremarkable echocardiogram at that time and did have a hemoglobin A1c noted as well. I suspect that this episode may be due to metabolic disturbance from the hypoxia, blood pressure changes and potentially blood sugar related changes. No focal deficits are noted. Patient was not a tPA or interventional candidate. The complaints of generalized rather than focal weakness in the patient's speechdisturbance consideration is strongly given to a metabolic cause. I cannot fully exclude transient ischemia or infarct. Further imaging is pending. Interval history: Patient is stable with no acute events from Saturday into . Workup: CT of the brain without contrast: Unremarkable CT angiogram of the head and neck: Unremarkable for occlusion, aneurysm or dissection LDL: 45?patient did have statin medication intensity increased by primary team. Goal should be LDL less than 70 in the setting of concern for history of stroke Hemoglobin A1c: 6.6 in October 2023?can be followed in the outpatient setting by primary care 2D echocardiogram in October 2023: 55 to 60% ejection fraction without mention of mass, vegetation or thrombus MRI of the brain: Pending Plan: Continue aspirin 81 mg p.o. daily and Eliquis at current dosing for atrial fibrillation. The patient's episode may be metabolic in nature and not registered representative necessarily of transient ischemia or of infarct. As such, unlessan abnormality is identified on MRI, there would not be failure of the current medications for secondary stroke prevention. Goal of LDL less than 70 PT and OT to assess the patient's complaints of generalized weakness upon presentation If MRI is unremarkable patient can follow in the outpatient setting with neurology. Documented By: Lit Clark DO 5 [id number] Signed By: <Electronically signed by Lit Clark DO> 04/30/24 0708 [facility] Work Phone: Summary Purpose Family History No Family History Records Found Relationship Condition Age at Onset Recorded Date/T [...] Unknown sister Unknown brother Unknown Advance Directives No Advanced Directives Records Found Advance Directive Response Recorded Date/ Time Advance Directives No December 5:05pm Advance Directive Response Recorded Date/ Time Advance Directives No December 4:05pm Procedure Findings Note HNO ID: [id number] Author: Phi Joaquin Service: Gynecology Oncology Author Type: Physician Type: Brief Op Note Filed: 01/17/2019 7:15 PM Note Text: BRIEF OPERATIVE / PROCEDURE NOTE LOG ID: [id number] SURGERY/PROCEDURE DATE: 01/01/2019 INCISION/PROCEDURE START TIME: 8:11 AM INCISION CLOSE/PROCEDURE END TIME: 8:34 AM SURGEON(S)/PROCEDURALIST(S) AND MDM SR(S): Surgeon(s) and Role: * Theo Joaquin - [...] [D07.1] SIGNATURE: Petty Shahid MD PATIENT NAME: Taye Gay DATE: January 01, 2019 TIME: 8:39 AM PAGER/CONTACT #: [id number] Chief Complaint and Reason for Visit Chief Complaint right side pain Low R abd pain Reason for Visit Cholelithiasis Emphysematous cystitis Pyelonephritis Right lateral abdominal pain Chief Complaint g02.97 f17.210 Chief Complaint g02.97 f17.210 Z12.39 Chief Complaint E11.4 Z78.0 Chief Complaint 3 month follow up Reason for Visit BMI 28.0-28.9,adult [id number] Dietary counseling and surveillance Hyperlipidemia Hypertension Insulin long-term use Peripheral neuropathy Type 2 diabetes mellitus Vitamin B 12 deficiency Chief Complaint 3 month follow up PVD FOLLOW UP Reason for Visit BMI 28.0-28.9,adult [id number] Dietary counseling and surveillance Hyperlipidemia Hypertension Insulin long-term use Peripheral neuropathy Type 2 diabetes mellitus Vitamin B 12 deficiency Dizziness Hypertension Primary insomnia Type 2 diabetes mellitus Chief Complaint 3 month follow up PVD FOLLOW UP g02.97 f17.210 Reason for Visit BMI 28.0-28.9,adult [id number] Dietary counseling and surveillance Hyperlipidemia Hypertension Insulin long-term use Peripheral neuropathy Type 2 diabetes mellitus Vitamin B 12 deficiency Dizziness Hypertension Primary insomnia Type 2 diabetes mellitus PAD (peripheral artery disease) Chief Complaint 3 month follow up PVD FOLLOW UP g02.97 f17.210 E11.9 E78.5 E53.8 Reason for Visit BMI 28.0-28.9,adult [id number] Dietary counseling and surveillance Hyperlipidemia Hypertension Insulin long-term use Peripheral neuropathy Type 2 diabetes mellitus Vitamin B 12 deficiency Dizziness Hypertension Primary insomnia Type 2 diabetes mellitus PAD (peripheral artery disease) Chief Complaint PVD FOLLOW UP g02.97 f17.210 E11.9 E78.5 E53.8 Amb Documentation brent on phone chest pains chest pains Reason for Visit PAD (peripheral evert ry disease) BMI 28.0-28.9,adult [id number] Dietary counseling and surveillance Hyperlipidemia Hypertension Peripheral neuropathy Tachycardia Type 2 diabetes mellitus Vitamin B 12 deficiency Atrial flutter with rapid ventricular response Chest pain Hyperlipidemia Hypertension New onset atrial flutter Type 2 diabetes mellitus Chief Complaint PVD FOLLOW UP g02.97 f17.210 E11.9 E78.5 E53.8 Amb Documentation brent on phone chest pains chest pains Amb Documentation Hospital follow up Reason for Visit PAD (peripheral evert ry disease) BMI 28.0-28.9,adult [id number] Dietary counseling and surveillance Hyperlipidemia Hypertension Peripheral neuropathy Tachycardia Type 2 diabetes mellitus Vitamin B 12 deficiency Atrial flutter with rapid ventricular response Chest pain Hyperlipidemia Hypertension New onset atrial flutter Type 2 diabetes mellitus New onset atrial flutter Mobility impaired Chief Complaint E11.9 E78.5 E53.8 Amb Documentation brent on phone chest pains chest pains Amb Documentation Hospital follow up g72.9 g62.9 r79.89 g60.9 z11.3 e53.1 i70.91 d51.3 Reason for Visit BMI 28.0-28.9,adult [id number] Dietary counseling and surveillance Hyperlipidemia Hypertension Peripheral neuropathy Tachycardia Type 2 diabetes mellitus Vitamin B 12 deficiency Hyperlipidemia Hypertension New onset atrial flutter Type 2 diabetes mellitus Atrial flutter with rapid ventricular response Chest pain Hospital discharge follow-up New onset atrial flutter Primary insomnia Type 2 diabetes mellitus Mobility impaired Chief Complaint E11.9 E78.5 E53.8 Amb Documentation brent on phone chest pains chest pains Amb Documentation Hospital follow up g72.9 g62.9 r79.89 g60.9 z11.3 e53.1 i70.91 d51.3 aflutter Reason for Visit BMI 28.0-28.9,adult [id number] Dietary counseling and surveillance Hyperlipidemia Hypertension Peripheral neuropathy Tachycardia Type 2 diabetes mellitus Vitamin B 12 deficiency Hyperlipidemia Hypertension New onset atrial flutter Type 2 diabetes mellitus Atrial flutter with rapid ventricular response Chest pain Hospital discharge follow-up New onset atrial flutter Primary insomnia Type 2 diabetes mellitus Mobility impaired Chief Complaint E11.9 E78.5 E53.8 Amb Documentation brent on phone chest pains chest pains Amb Documentation Hospital follow up g72.9 g62.9 r79.89 g60.9 z11.3 e53.1 i70.91 d51.3 aflutter Multiple [place], Shaky Reason for Visit BMI 28.0-28.9,adult [id number] Dietary counseling and surveillance Hyperlipidemia Hypertension Peripheral [...] Chief Complaint E11.9 E78.5 E53.8 Amb Documentation brent on phone chest pains chest pains Amb Documentation Hospital follow up g72.9 g62.9 r79.89 g60.9 z11.3 e53.1 i70.91 d51.3 aflutter [place], [place] Reason for Visit BMI 28.0-28.9,adult [id number] Dietary counseling and surveillance Hyperlipidemia Hypertension Peripheral [...] Chief Complaint E11.9 E78.5 E53.8 Amb Documentation brent on phone chest pains chest pains Amb Documentation Hospital follow up g72.9 g62.9 r79.89 g60.9 z11.3 e53.1 i70.91 d51.3 aflutter [place], [place] Amb Documentation brent on phone Reason for Visit BMI 28.0-28.9,adult [id number] Dietary counseling and surveillance Hyperlipidemia Hypertension Peripheral [...] Vitamin B 12 deficiency Weakness BMI 28.0-28.9,adult [id number] Dietary counseling and surveillance Hyperlipidemia Hypertension Peripheral neuropathy Type 2 diabetes mellitus Vitamin B 12 deficiency Chief Complaint E11.9 E78.5 E53.8 Amb Documentation brent on phone chest pains chest pains Amb Documentation Hospital follow up g72.9 g62.9 r79.89 g60.9 z11.3 e53.1 i70.91 d51.3 aflutter [place], [place] Amb Documentation brent on phone typical a flutter Reason for Visit BMI 28.0-28.9,adult [id number] Dietary counseling and surveillance Hyperlipidemia Hypertension Peripheral [...] Weakness Abnormal thyroid blood test BMI 28.0-28.9,adult [id number] Dietary counseling and surveillance Hyperlipidemia Hypertension Peripheral neuropathy Type 2 diabetes mellitus Vitamin B 12 deficiency Chief Complaint E11.9 E78.5 E53.8 Amb Documentation brent on phone chest pains chest pains Amb Documentation Hospital follow up g72.9 g62.9 r79.89 g60.9 z11.3 e53.1 i70.91 d51.3 aflutter [place], [place] Amb Documentation brent on phone typical a flutter typical a flutter [facility] follow up Reason for Visit BMI 28.0-28.9,adult [id number] Dietary counseling and surveillance Hyperlipidemia Hypertension Peripheral [...] Weakness Abnormal thyroid blood test BMI 28.0-28.9,adult [id number] Dietary counseling and surveillance Hyperlipidemia Hypertension Peripheral neuropathy Type 2 diabetes mellitus Vitamin B 12 deficiency Hospital discharge follow-up Hypomagnesemia Chief Complaint E11.9 E78.5 E53.8 Amb Documentation brent on phone chest pains chest pains Amb Documentation Hospital follow up g72.9 g62.9 r79.89 g60.9 z11.3 e53.1 i70.91 d51.3 aflutter [place], [place] Amb Documentation brent on phone typical a flutter typical a flutter [facility] follow up G62.9 G60.9 R79.89 Z11.3 E53.1 I70.31 D51.3 Reason for Visit BMI 28.0-28.9,adult [id number] Dietary counseling and surveillance Hyperlipidemia Hypertension Peripheral [...] Weakness Abnormal thyroid blood test BMI 28.0-28.9,adult [id number] Dietary counseling and surveillance Hyperlipidemia Hypertension Peripheral neuropathy Type 2 diabetes mellitus Vitamin B 12 deficiency Hospital discharge follow-up Hypomagnesemia Chief Complaint E11.9 E78.5 E53.8 Amb Documentation brent on phone chest pains chest pains Amb Documentation Hospital follow up g72.9 g62.9 r79.89 g60.9 z11.3 e53.1 i70.91 d51.3 aflutter [place], [place] Amb Documentation brent on phone typical a flutter typical a flutter [facility] follow up G62.9 G60.9 R79.89 Z11.3 E53.1 I70.31 D51.3 g62.9 r79.89 g60.9 z11.3 e53.1 d51.3 Reason for Visit BMI 28.0-28.9,adult [id number] Dietary counseling and surveillance Hyperlipidemia Hypertension Peripheral [...] Weakness Abnormal thyroid blood test BMI 28.0-28.9,adult [id number] Dietary counseling and surveillance Hyperlipidemia Hypertension Peripheral neuropathy Type 2 diabetes mellitus Vitamin B 12 deficiency Hospital discharge follow-up Hypomagnesemia Chief Complaint g72.9 g62.9 r79.89 g 60.9 z11.3 e53.1 i70.91 d51.3 aflutter [place], [place] Amb Documentation brent on phone typical a flutter typical a flutter [facility] follow up G62.9 G60.9 R79.89 Z11.3 E53.1 I70.31 D51.3 g62.9 r79.89 g60.9 z11.3 e53.1 d51.3 M54.17 Reason for Visit Ambulatory dysfuncti on Hypomagnesemia Hypothyroid Type 2 diabetes mellitus with hyperglycemia Vitamin B 12 deficiency Weakness Abnormal thyroid blood test BMI 28.0-28.9,adult [id number] Dietary counseling and surveillance Hyperlipidemia Hypertension Peripheral neuropathy Type 2 diabetes mellitus Vitamin B 12 deficiency Hospital discharge follow-up Hypomagnesemia Chief Complaint g72.9 g62.9 r79.89 g 60.9 z11.3 e53.1 i70.91 d51.3 aflutter [place], [place] Amb Documentation brent on phone typical a flutter typical a flutter [facility] follow up G62.9 G60.9 R79.89 Z11.3 E53.1 I70.31 D51.3 g62.9 r79.89 g60.9 z11.3 e53.1 d51.3 M54.17 R60.0 M79.671 r/o dvt Reason for Visit Ambulatory dysfuncti on Hypomagnesemia Hypothyroid Type 2 diabetes mellitus with hyperglycemia Vitamin B 12 deficiency Weakness Abnormal thyroid blood test BMI 28.0-28.9,adult [id number] Dietary counseling and surveillance Hyperlipidemia Hypertension Peripheral neuropathy Type 2 diabetes mellitus Vitamin B 12 deficiency Hospital discharge follow-up Hypomagnesemia Chief Complaint g72.9 g62.9 r79.89 g 60.9 z11.3 e53.1 i70.91 d51.3 aflutter [place], [place] Amb Documentation brent on phone typical a flutter typical a flutter [facility] follow up G62.9 G60.9 R79.89 Z11.3 E53.1 I70.31 D51.3 g62.9 r79.89 g60.9 z11.3 e53.1 d51.3 M54.17 R60.0 M79.671 r/o dvt L97.511 L03.115 lumbosacral radiculopathy at s1 Reason for Visit Ambulatory dysfuncti on Hypomagnesemia Hypothyroid Type 2 diabetes mellitus with hyperglycemia Vitamin B 12 deficiency Weakness Abnormal thyroid blood test BMI 28.0-28.9,adult [id number] Dietary counseling and surveillance Hyperlipidemia Hypertension Peripheral neuropathy Type 2 diabetes mellitus Vitamin B 12 deficiency Hospital discharge follow-up Hypomagnesemia Chief Complaint aflutter [place], [place] Amb Documentation brent on phone typical a flutter typical a flutter [facility] follow up G62.9 G60.9 R79.89 Z11.3 E53.1 I70.31 D51.3 g62.9 r79.89 g60.9 z11.3 e53.1 d51.3 M54.17 R60.0 M79.671 r/o dvt L97.511 L03.115 lumbosacral radiculopathy at s1 8 Month F/U Reason for Visit Ambulatory dysfuncti on Hypomagnesemia Hypothyroid Type 2 diabetes mellitus with hyperglycemia Vitamin B 12 deficiency Weakness Abnormal thyroid blood test BMI 28.0-28.9,adult [id number] Dietary counseling and surveillance Hyperlipidemia Hypertension Peripheral neuropathy Type 2 diabetes mellitus Vitamin B 12 deficiency Hospital discharge follow-up Hypomagnesemia Weakness Chief Complaint Admit Date Screening, Dysphagia February 14, 2024 12:30pm NEW elevated WBC April 14, 2024 9:30am irregular heart beat, dizziness, weaknes s April 27, 2024 2:18pm Follow Up 2 Weeks April 28, 2024 9:53am brent on phone April 28, 2024 11:14am Weakness April 28, 2024 10:38pm Reason for Visit Admit Date High granulocyte count April 14 9:30am Secondary polycythemia April 14 9:30am BMI 32.0-32.9,adult April 28, 2024 11:14am Chronic kidney disease (CKD) stage G2/A2, mildly decreased glomerular filtr April 28, 2024 11:14am Dietary counseling and surveillance [facility] 2023 11:14am Hyperlipidemia April 28, 2024 11:14am Hypertension April 28, 2024 11:14am Peripheral neuropathy April 28 11:14am Type 2 diabetes mellitus April 28, 2024 11:14am Vitamin B 12 deficiency April 28, 024 11:14am TIA (transient ischemic attack) April 28, 2024 10:38pm Reason for Visit Admit Date High granulocyte count April 14 9:30am Secondary polycythemia April 14 9:30am BMI 32.0-32.9,adult April 28, 2024 11:14am Chronic kidney disease (CKD) stage G2/A2, mildly decreased glomerular filtr April 28, 2024 11:14am Dietary counseling and surveillance [facility] 2023 11:14am Hyperlipidemia April 28, 2024 11:14am Hypertension April 28, 2024 11:14am Peripheral neuropathy April 28 11:14am Type 2 diabetes mellitus April 28, 2024 11:14am Vitamin B 12 deficiency April 28 11:14am Atrial fibrillation April 28, 2024 10:38pm Generalized weakness April 28, 2024 10:38pm Insulin dependent diabetes mellitus [facility] 2023 10:38pm TIA (transient ischemic attack) April 28, 2024 10:38pm Chief Complaint Admit Date Screening, Dysphagia February 14, 2024 12:30pm NEW elevated WBC April 14, 2024 9:30am irregular heart beat, dizziness, weaknes s April 27, 2024 2:18pm Follow Up 2 Weeks April 28, 2024 9:53am brent on phone April 28, 2024 11:14am Weakness April 28, 2024 10:38pm [facility] FOLLOW UP May 07 1:02pm Reason for Visit Admit Date High granulocyte count April 14 9:30am Secondary polycythemia April 14 9:30am High granulocyte count April 28 9:53am Secondary polycythemia April 28 9:53am BMI 32.0-32.9,adult April 28, 2024 11:14am Chronic kidney disease (CKD) stage G2/A2, mildly decreased glomerular filtr April 28, 2024 11:14am Dietary counseling and surveillance [facility] 2023 11:14am Hyperlipidemia April 28, 2024 11:14am Hypertension April 28, 2024 11:14am Peripheral neuropathy April 28 11:14am Type 2 diabetes mellitus April 28, 2024 11:14am Vitamin B 12 deficiency April 28 11:14am Atrial fibrillation April 28, 2024 10:38pm Generalized weakness April 28, 2024 10:38pm Insulin dependent diabetes mellitus [facility] 2023 10:38pm TIA (transient ischemic attack) April 28, 2024 10:38pm Cigarette nicotine dependence April 1:02pm Chief Complaint Admit Date NEW elevated WBC April 14, 2024 9:30am irregular heart beat, dizziness, weaknes s April 27, 2024 2:18pm Follow Up 2 Weeks April 28, 2024 9:53am brent on phone April 28, 2024 11:14am Weakness April 28, 2024 10:38pm [facility] FOLLOW UP May 07 1:02pm G45.9 May 25, 2024 4 :33pm Reason for Visit Admit Date High granulocyte count April 14 9:30am Secondary polycythemia April 14 9:30am High granulocyte count April 28 9:53am Secondary polycythemia April 28 9:53am BMI 32.0-32.9,adult April 28, 2024 11:14am Chronic kidney disease (CKD) stage G2/A2, mildly decreased glomerular filtr April 28, 2024 11:14am Dietary counseling and surveillance [facility] 2023 11:14am Hyperlipidemia April 28, 2024 11:14am Hypertension April 28, 2024 11:14am Peripheral neuropathy April 28 11:14am Type 2 diabetes mellitus April 28, 2024 11:14am Vitamin B 12 deficiency April 28, 2 024 11:14am Atrial fibrillation April 28, 2024 10:38pm Generalized weakness April 28, 2024 10:38pm Insulin dependent diabetes mellitus [facility] 2023 10:38pm TIA (transient ischemic attack) April 28, 2024 10:38pm Cigarette nicotine dependence April 1:02pm Disordered sleep May 07, 2024 1: 02pm Hypotension May 07, 2024 1: 02pm Stool incontinence May 07, 2024 1: 02pm TIA (transient ischemic attack) May 07, 2024 1:02pm Reason for Referral Specialty Diagnoses / Procedures Referred By Contac t Referred To Contact Diagnoses Typical atrial flutter (Multi) Procedures ECG 12 Lead Jonas Ch MD [address] [address], [place] [phone] Referral ID Status Reason Start Date Expiration Date V isits Requested Visits Authorized [id number] Authorized 11/13/2023 11/12/2024 1 1 Specialty Diagnoses / Procedures Referred By Contac t Referred To Contact Diagnoses Typical atrial flutter (Multi) Procedures Complete Pulmonary Function Test (Spirometry/DLCO/Lung Volumes) Jonas Ch MD [address] [facility] [address] [place] [address] Referral ID Status Reason Start Date Expiration Date V isits Requested Visits Authorized [id number] Pending Review 11/13/2023 11/12/2024 1 1 Specialty Diagnoses / Procedures Referred By Contac t Referred To Contact Radiology Diagnoses Typical atrial flutter (Multi) Procedures XR chest 2 views Jonas Ch MD [address] [facility], [address] [place] [address] Referral ID Status Reason Start Date Expiration Date Visits Requested Visits Authorized [id number] Authorized Perform Procedure 11/13/2023 11/12/2024 1 1 Specialty Diagnoses / Procedures Referred By Contac t Referred To Contact Cardiology Diagnoses Nonischemic cardiomyopathy (Multi) Procedures Follow Up In Cardiology Jonas Ch MD [address] [facility], [address] [place] [address] Thuan Wise MD [address] [facility] [address], [address] [place] [id number] Referral ID Status Reason Start Date Expiration Date V isits Requested Visits Authorized [id number] Authorized 11/13/2023 11/12/2024 1 1 Specialty Diagnoses / Procedures Referred By Contac t Referred To Contact Cardiology Diagnoses Typical atrial flutter (Multi) Procedures Cardioversion External Jonas Ch MD [address] [facility], [address] [place] [address] Referral ID Status Reason Start Date Expiration Date V isits Requested Visits Authorized [id number] Pending Review 10/07/2023 10/06/2024 1 1 Specialty Diagnoses / Procedures Referred By Contac t Referred To Contact Cardiology Diagnoses Typical atrial flutter (Multi) Procedures Follow Up In Cardiology Jonas Ch MD [address] [facility], [address] [place] [address] Jonas Ch MD [address] [facility], [address] [place] [address] Referral ID Status Reason Start Date Expiration Date V isits Requested Visits Authorized [id number] Authorized 10/07/2023 10/06/2024 1 1 Reason LEFT FOOT INJURY Diagnosis 1 Type 2 diabetes ye itus with hyperglycemia (E11.65) Diagnosis 2 Injury of foot, left (S99.922A) Referral Organization [facility] Referring Provider First Name Angelique Referring Provider Last Name Map Referring Provider Specialty Nurse Pract itioner Referred Organization [facility] Referred Provider Karl Fritz Referred Address ,[place], [place],[address] Referred Provider Specialty Podiatry - S urgical Chiropody Referral Priority Routine Referral Appointment Date 2023-01-09 General Notes Emerald Doshi 12/28 03:26:20 PM >SCHEDULED FOR 01/09/23 AT 10:15AM. PATIENT INFORMED. Additional Source Comments INFORMATION SOURCE (unrecogn ized section and content) DATE CREATED AUTHOR 10/21/2017 [facility] DATE CREATED AUTHOR AUTHOR'S ORGANIZ ATION 10/22/2017 [facility] DATE CREATED AUTHOR AUTHOR'S ORGANIZ ATION 02/16/2019 [facility] DATE CREATED AUTHOR AUTHOR'S ORGANIZ ATION 02/02/2022 [facility] DATE CREATED AUTHOR AUTHOR'S ORGANIZ ATION 04/10/2024 [facility] EPIC DATE CREATED AUTHOR AUTHOR'S ORGANIZ ATION 05/10/2024 [facility] DATE CREATED AUTHOR AUTHOR'S ORGANIZ ATION 05/31/2024 [facility] REASON FOR VISIT (unrecogniz ed section and content) Reason Comments Hospital Follow-up [facility] 09/14/23 Reason Comments Peripheral Neuropathy Reason Comments Blood Pressure Check With ekg Specialty Diagnoses / Procedures Referred By Tahmina thurston Referred To Contact Cardiology Diagnoses Hypertension, unspecified type Procedures Follow Up In Cardiology Thuan Wise MD [address] [facility], [address] [place] [address] Phone: tel: fax: Thuan Wise MD [address] [place] [address] [address], [address] [address] Phone: tel: fax: Referral ID Status Reason Start Date Expiration Date V isits Requested Visits Authorized [id number] Authorized 03/09/2024 03/09/2025 1 1 Reason Comments Follow-up [facility] follow up Specialty Diagnoses / Procedures Referred By Contac t Referred To Contact Cardiology Diagnoses Typical atrial flutter (Multi) Procedures Follow Up In Cardiology Jonas Ch MD [address] [place] [address] 2, [facility] [address] [place] [address] Jonas Ch MD [address] [place] [address] 2, [place] [phone] Referral ID Status Reason Start Date Expiration Date V isits Requested Visits Authorized [id number] Authorized 10/07/2023 10/06/2024 1 1 Reason Comments cognitive decline Reason Comments Follow-up Medication change, A sherman d/c Specialty Diagnoses / Procedures Referred By Papitoac t Referred To Contact Cardiology Diagnoses Typical atrial flutter (Multi) Procedures Follow Up In Cardiology Thuan Wise MD [address] [facility] 2, [facility] [address] [place] [address] Thuan Wise MD [address] [place] [address] [address], [address] [address] Referral ID Status Reason Start Date Expiration Date V isits Requested Visits Authorized [id number] Authorized 11/28/2023 11/27/2024 1 1 Specialty Diagnoses / Procedures Referred By Contac t Referred To Contact Neurology Diagnoses Carpal tunnel syndrome, bilateral upper limbs Procedures NE INJECTION THERAPEUTIC CARPAL TUNNEL NE KETOROLAC TROMETHAMINE INJ 1 CC STERILE SYRINGE&NEEDLE Oz Kincaid MD [address] [facility] [address] [place] [address] Oz Kincaid MD [address] [place] [address] Referral ID Status Reason Start Date Expiration Date V isits Requested Visits Authorized [id number] Closed Perform Procedure 12/16/2023 06/13/2024 1 1 Care Teams (unrecognized sec tion and content) Team Status: Active Member Role Status Marco A Keita DO Primary Care Provider Active Team Status: Inactive Member Role Status Marco A Keita DO Primary Care Provider Active Start: June 12, 2023 End: June 12, 2023 Angelique Russell APRN Attending Provider Active Start: June 12, 2023 End: June 12, 2023 Team Status: Active Member Role Status Dates Jonas Yoder , DO Primary Care Provider Acti ve Falguni Fine MD Active Kelly Giang PA-C Active Angelique Russell APRN Attending Provider Active Team Status: Inactive Member Role Status Marco A Keita DO Primary Care Provider, Bradford hartley Active Team Status: Inactive Member Role Status Dates Tray Randle , DO Emergency Provider Active Arleen Stephen MD Admit Provider Active Walter Montgomery , Other Provider Active Teresa Strong MD Other Provider Active Wilmer Vance MD Attending Provider Active Jonas Yoder , DO Primary Care Provider Acti ve Team Status: Inactive Member Role Status Dates PHYSICIAN NO FAMILY Primary Care Provider Active Reynold Daily , DO Emergency Provider Active Team Status: Active Member Role Status Dates PHYSICIAN NO FAMILY Primary Care Provider Active Team Status: Inactive Member Role Status Marco A Keita DO Primary Care Provide r, Attending Provider Active Start: June 19, 2023 End: June 19, 2023 Team Status: Inactive Member Role Status Marco A Keita DO Primary Care Provider Active Start: July 17, 2023 End: July 17, 2023 Tray Nava MD Attending Provider Active Start: July 17, 2023 End: July 17, 2023 Team Status: Inactive Member Role Status Marco A Keita DO Primary Care Provide r, Attending Provider Active Start: July 25, 2023 End: July 25, 2023 Team Status: Inactive Member Role Status Dates Sandra Keita , Primary Care Provider Active Start: September 05, 2023 End: September 05, 2023 Angelique Russell APRN Attending Provider Active Start: September 05, 2023 End: September 05, 2023 Team Status: Active Member Role Status Dates Sandra Keiat , Primary Care Provider Active Start: September 09, 2023 Tolu Salinas APRN Attending Provider Active Start: September 09, 2023 Team Status: Inactive Member Role Status Dates Sandra Keita , Primary Care Provider Active Start: September 12, 2023 End: September 12, 2023 Angelique Russell APRN Attending Provider Active Start: September 12, 2023 End: September 12, 2023 Team Status: Inactive Member Role Status Dates Sandra Keita , Primary Care Provider Active Start: September 13, 2023 End: September 14, 2023 Edgar Valenzuela DO Emergency Provider Active Sta rt: September 13, 2023 End: September 14, 2023 Elva Florian MD Admit Provider, Atte nding Provider Active Start: September 13, 2023 End: September 14, 2023 Marli Paz RN Other Provider Active Star t: September 13, 2023 End: September 14, 2023 Elly Yoo DO Other Provider Active Start : September 13, 2023 End: September 14, 2023 Ric Lamar MD Other Provider Active Start: September 13, 2023 End: September 14, 2023 Jonas Ch MD Other Provider Active Start: September [...] Stephanie Stoll MD Other Provider Active Start: stephanie 2023 End: September 14, 2023 Jann Kaplan MD Other Provider Active Start: September 13, 2023 End: September 14, 2023 Cara Tenorio MD Other Provider Active Start: M ay 2023 End: September 14, 2023 Elizabeth Parra [facility] Other Provider Active Sta rt: September 13, 2023 End: September 14, 2023 Ashley Cheatham MD Other Provider Active Start: September 13, 2023 End: September 14, 2023 Team Status: Active Member Role Status Dates Sandra Keita DO Primary Care Provider Active Start: September 14, 2023 Edgar Valenzuela DO Emergency Provider Active Sta rt: September 14, 2023 Elva Florian MD Admit Provider, Othe r Provider Active Start: September 14, 2023 Marli Paz RN Other Provider Active Star t: September 14, 2023 Elly Yoo DO Other Provider Active Start : September 14, 2023 Ric Lamar MD Other Provider Active Start: September 14, 2023 Jonas Ch MD Other Provider Active Start: September 14, 2023 Thuan Wise MD Other Provider Active St art: September 14, 2023 Manjit Barbosa MD Other Provider Active Start: September 14, 2023 Naida Fritz APRN Other Provider Active Start : September 14, 2023 Stpehanie Stoll MD Other Provider Active Start: M ay 2023 Jann Kaplan MD Other Provider Active Start: September 14, 2023 Cara Tenorio MD Other Provider Active Start: M ay 2023 Elizabeth Parra [facility] Other Provider Active Sta rt: September 14, [...] September 17, 2023 End: September 17, 2023 Transfusion Nurse Relationship Specialty Start Date End Date Sandra Keita DO [address] [facility] [place] [address] PCP - General Family Medicine 09/25/23 Team Status: Active Member Role Status Dates Sandra Keita DO Primary Care Provider Active Start: September 14, 2023 End: September 14, 2023 Edgar Valenzuela DO Emergency Provider Active Sta rt: September 14, 2023 End: September 14, 2023 Elva Florian MD Admit Provider, Othe r Provider Active Start: September 14, 2023 End: September 14, 2023 Marli Paz RN Other Provider Active Star t: September 14, 2023 End: September 14, 2023 W Tuan Yoo DO Other Provider Active Start : September 14, 2023 End: September 14, 2023 Ric Lamar MD Other Provider Active Start: September 14, 2023 End: September 14, 2023 Jonas Ch MD Other Provider Active Start: September [...] End: September 14, 2023 Elizabeth Parra , [facility]- Other Provider Active Sta rt: September 14, 2023 End: September 14, 2023 Ashley Cheatham MD Other Provider Active Start: September 14, 2023 End: September 14, 2023 Faraz Gilliam MD Attending Provider Activ e Start: September 14, 2023 End: September 14, 2023 Team Status: Inactive Member Role Status Dates Sandra Kieta DO Primary Care Provider Active Start: October 30, 2023 End: October 30, 2023 Oz Kincaid MD Attending Provider Active Start: October 30, 2023 End: October 30, 2023 Team Status: Inactive Member Role Status Dates Sandra Keita DO Primary Care Provider Active Start: November 05, 2023 End: November 05, 2023 Jonas Ch MD Attending Franchesca hartley Referring Provider Active Start: November 05, 2023 End: November 05, 2023 Team Status: Active Member Role Status Dates Sandra Keita DO Primary Care Provider Active Start: November 10, 2023 Reynold Daily DO Emergency Provider Active St art: November 10, 2023 Jluis Campos , Admit Provider, Attending Provider Active Start: November 10, 2023 Team Status: Inactive Member Role Status Dates Sandra Keita DO Primary Care Provider Active Start: November 10, 2023 End: November 12, 2023 Reynold Daily , Emergency Provider Active St art: November 10, 2023 End: November 12, 2023 Jluis Campos , Admit Provider Active Start: November 10, 2023 [...] November 10, 2023 End: November 12, 2023 Dayana Dodge , ANP- Other Provider Active Start: November 10, 2023 End: November 12, 2023 Roque Isidro DO Other Provider Active Start: November 10, 2023 End: November 12, 2023 Tracy Calvo APRN Other Provider Active St art: November 10, 2023 End: November 12, 2023 Tayler Medina , [employer] Other Provider Active Sta rt: November 10, 2023 End: November 12, 2023 Jeanine Ibrahim APRN-[employer] Other Provider Active Start: November 10, 2023 [...] November 15, 2023 End: November 15, 2023 Jonas Ch MD Attending Provider Active Start: November 15, 2023 End: November 15, 2023 Team Status: Active Member Role Status Marco A Keita DO Primary Care Provider Active Start: November 16, 2023 Jonas Ch MD Other Provider Active Start: November 16, 2023 Lit Sterling MD Attending Provider Active Start: November 16, 2023 Team Status: Inactive Member Role Status Dates Sandra Keita DO Primary Care Provider Active Start: November 18, 2023 End: November 18, 2023 Tolu Salinas APRN Attending Provider Active Start: November 18, 2023 End: November 18, 2023 Team Status: Inactive Member Role Status Marco A Keita DO Primary Care Provider Active Start: November 26, 2023 End: November 26, 2023 Oz Kincaid MD Attending Provider Active Start: November 26, 2023 End: November 26, 2023 Team Status: Inactive Member Role Status Marco A Keita DO Primary Care Provider Active Start: December 02, 2023 End: December 02, 2023 Oz Kincaid MD Attending Provider Active Start: December 02, 2023 End: December 02, 2023 Tolu Salinas APRN Referring Provider Active Start: December 02, 2023 [...] Team Status: Inactive Member Role Status Dates Edgar Eden DO Attending Provider Active S tart: January 15, 2024 End: January 15, 2024 Sandra Keita DO Primary Care Provider Active Start: January 15, 2024 End: January 15, 2024 Transfusion Nurse Relationship Specialty Start Date End Date Sandra Keita [facility] [address] [facility] [place] [phone] PCP - General Family Medicine 01/09/23 Team Status: Inactive Member Role Status Dates Sandra Keita DO Primary Care Provide r, Attending Provider Active Start: February 03, 2024 End: February 03, 2024 Transfusion Nurse Relationship Specialty Start Date End Date Sandra Keita DO [address] [facility] [place] [phone] PCP - General Family Medicine 01/09/23 Transfusion Nurse Relationship Specialty Start Date End Date Sandra Keita DO [address] [facility] [place] [phone] PCP - General Family Medicine 01/09/23 Transfusion Nurse Relationship Specialty Start Date End Date Sandra Keita DO [address] [place] [phone] PCP - General Family Medicine 01/09/23 Transfusion Nurse Relationship Specialty Start Date End Date Sandra Keita DO [address] [place] [phone] PCP - General Family Medicine 01/09/23 Transfusion Nurse Relationship Specialty Start Date End Date DebbieSandra Rebecca [address] [place] [address] PCP - General Family Medicine 09/25/23 Transfusion Nurse Relationship Specialty Start Date End Date Snadra Keita DO [address] [place] [phone] PCP - General Family Medicine 01/09/23 Transfusion Nurse Relationship Specialty Start Date End Date Sandra Keita DO [address] [place] [phone] PCP - General Family Medicine 01/09/23 Transfusion Nurse Relationship Specialty Start Date End Date Sandra Keita DO [address] [place] [phone] PCP - General Family Medicine 01/09/23 Transfusion Nurse Relationship Specialty Start Date End Date KeitaSandra RebeccaDO [address] [place] [address] PCP - General Family Medicine 09/25/23 Transfusion Nurse Relationship Specialty Start Date End Date Sandra Keita DO [address] [place] [phone] PCP - General Family Medicine 01/09/23 Transfusion Nurse Relationship Specialty Start Date End Date Sandra Keita DO [address] [place] [phone] PCP - General Family Medicine 01/09/23 Transfusion Nurse Relationship Specialty Start Date End Date Sandra Keita DO [address] [place] [address] PCP - General Family Medicine 09/25/23 Transfusion Nurse Relationship Specialty Start Date End Date Sandra Keita DO [address] [place] [phone] PCP - General Family Medicine 01/09/23 Transfusion Nurse Relationship Specialty Start Date End Date Sandra Keita DO [address] [place] [phone] PCP - General Family Medicine 01/09/23 Transfusion Nurse Relationship Specialty Start Date End Date Sandra Keita DO [address] [place] [address] PCP - General Family Medicine 01/09/23 Transfusion Nurse Relationship Specialty Start Date End Date Sandra Keita DO [address] [place] [address] PCP - General Family Medicine 01/09/23 Transfusion Nurse Relationship Specialty Start Date End Date Sandra Keita DO [address] [place] [phone] PCP - General Family Medicine 01/09/23 Transfusion Nurse Relationship Specialty Start Date End Date Sandra Keita DO [address] [place] [phone] PCP - General Family Medicine 01/09/23 Transfusion Nurse Relationship Specialty Start Date End Date Sandra Keita DO [address] [place] [phone] PCP - General Family Medicine 01/09/23 Transfusion Nurse Relationship Specialty Start Date End Date Sandra Keita DO [address] [place] [address] PCP - General Family Medicine 01/09/23 Transfusion Nurse Relationship Specialty Start Date End Date Sandra Keita DO [address] [place] [phone] PCP - General Family Medicine 01/09/23 Team Status: Inactive Member Role Status Dates Sandra Keita DO Primary Care Provider Active Start: February 14, 2024 End: February 14, 2024 Manjit Gleason MD Attending Provider Active Start: February 14, 2024 End: February 14, 2024 Team Status: Inactive Member Role Status Dates Sandra Keita DO Primary Care Provider Active Start: April 14, 2024 End: April 14, 2024 Nataliya Jane APRN Attending Provider Active Start: March End: April 14, 2024 Oz Kincaid MD Referring Provider Active Start: April 14, 2024 End: April 14, 2024 Team Status: Inactive Member Role Status Dates Sandra Keita DO Primary Care Provider Active Start: April 27, 2024 End: April 27, 2024 Reynold Daily DO Emergency Provider Active St art: April 27, 2024 End: April 27, 2024 Team Status: Inactive Member Role Status Dates Sandra Keita DO Primary Care Provider Active Start: April 28, 2024 End: April 28, 2024 Nataliya Jane APRN Attending Provider Active Start: March End: April 28, 2024 Oz Kincaid MD Referring Provider Active Start: April 28, 2024 Team Status: Inactive Member Role Status Dates Sandra Keita DO Primary Care Provider Active Start: April 28, 2024 End: April 28, 2024 Angelique Russell APRN Attending Provider Active Start: April 28, 2024 End: April 28, 2024 Team Status: Active Member Role Status Dates Sandra Keita DO Primary Care Provider Active Start: April 28, 2024 Wesley Villafuerte PA-C Emergency Provider Active Start: April 28, 2024 Chico Hearn DO Admit Provider, Atte nding Provider Active Start: April 28, 2024 Team Status: Inactive Member Role Status Dates Sandra Keita DO Primary Care Provider Active Start: April 28, 2024 End: April 30, 2024 Wesley Villafuerte PA-C Emergency Provider Active Start: April 28, 2024 End: April 30, 2024 Chico Hearn DO Admit Provider Active Start: April 28, 2024 End: April 30, 2024 Priscilla Lang MD Attending Provider Active Sta rt: April 28, 2024 End: April 30, 2024 Lit Clark DO Other Provider Active Start: April 28, 2024 End: April 30, 2024 Team Status: Inactive Member Role Status Dates Sandra Keita DO Primary Care Provide r, Attending Provider Active Start: May 07, 2024 End: May 07, 2024 Team Status: Inactive Member Role Status Dates Sandra Keita , DO Primary Care Provide r, Attending Provider Active Start: May 25, 2024 End: May 25, 2024 Goals (unrecognized section and content) Goals may [...] BE BASED ON THE PRIMARY CLINICAL RECORDS. [employer] [facility]. provides no warranty or guarantee of the accuracy or completeness of information in this document.
--- NOTE | 2024-06-04 18:56 | XR_ITS ---
[place] [id number] Patient Name: TAYE MARCOS MRN: [id number] date: 1955 Sex: F Assigned Patient Location: ER Current Patient Location: ED.MAIN Accession/Order Number: [id number] Exam Date: 06/04/2024 19:05 Report Date: 06/04/2024 20:09 At the request of: TSERING SUÁREZ Procedure: XR chest 1V EXAMINATION: XR chest 1V, , 06/04/2024 4:05 PM PST INDICATION: cough, SOB HISTORY: Ordering Provider Reason for Exam: cough, SOB Technologist Note: Additional: COMPARISON: None. TECHNIQUE: Chest x-ray: One view. FINDINGS: No pneumothorax, pleural effusion or focal airspace consolidation. Heart is normal in size. Bony thorax is unremarkable. XR/XR chest 1V IMPRESSION: No acute cardiopulmonary process. Electronically authenticated by: PENELOPE NIX Date: 06/04/2024 20:09
--- NOTE | 2024-06-04 18:56 | ECG_ITS ---
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
--- NOTE | 2024-06-04 18:58 | ED_ITS ---
HPI HPI - General Adult General Chief complaint: Arrhythmia/Palpitations Stated complaint: HEART RATE IRREGULAR Time Seen by Provider: 06/04/24 18:56 Mode of arrival: walk-in History of Present Illness HPI narrative: 68 year old female presents to the ED for cough, fatigue, SOB, diarrhea. Onset was Saturday05/29/24. Denies fever, N/V, abd pain, edema. She has hx CHF, a fib/flutter. She is a smoker. Related Data Previous Rx's ?Medication ?Instructions ?Recorded prednisone 10 mg tablet See Rx Instructions .Route 06/04/24 .COMPLEX #30 tabs Allergies Allergy/AdvReac Type Severity Reaction Status Date / Time Sulfa (Sulfonamide Allergy Mild Vomiting Verified 01/05/24 23:03 Antibiotics) Opioid HPI Opioid Management Most Recent Opioid Data: No Data to Display Review of Systems ROS Constitutional Reports: fatigue; Denies: fever or chills Ears, nose, mouth, and throat Denies: throat pain or neck pain Cardiovascular Denies: chest pain Respiratory Reports: shortness of breath and cough Gastrointestinal Reports: diarrhea; Denies: abdominal pain, nausea or vomiting Musculoskeletal Denies: back pain or neck pain Integumentary/Breast Denies: rash Neurological Denies: headache PFSH PFSH Social History Little interest or pleasure in doing things: not at all Feeling down, depressed, or hopeless: not at all Exam Constitutional Vital Signs, click to edit/add: Last Vital Signs Temp 98.2 F 06/04/24 18:09 Pulse 90 06/04/24 18:09 Resp 18 06/04/24 18:09 BP 132/88 06/04/24 18:09 Pulse Ox 98 06/04/24 18:09 O2 Del Method Room Air 06/04/24 18:09 Common normals: no apparent distress and oriented x3 General appearance: cooperative HENMT Nose: nasal discharge Mouth: oral and palatal mucosa normal, lip normal and tongue normal Throat: posterior oropharynx normal and uvula midline Eye Common normals: conjunctivae normal and no scleral icterus Neck & C-Spine Common normals: supple Respiratory Common normals: normal respiratory effort Effort & inspection: able to speak in complete sentences and symmetric chest movement; no grunting and no stridor Auscultation: wheezes Cardio Common normals: regular rate and regular rhythm GI Common normals: soft to palpation and non-tender Extremity Common normals: normal capillary refill and no pedal edema Neuro Common normals: oriented x3 and moves all extremities Sensorium/orientation: awake and alert Course Vital Signs Vital signs: Vital Signs Temperature 98.2 F 06/04/24 18:09 Pulse Rate 90 06/04/24 18:09 Respiratory Rate 18 06/04/24 18:09 Blood Pressure 132/88 06/04/24 18:09 Pulse Oximetry 98 06/04/24 18:09 Oxygen Delivery Method Room Air 06/04/24 18:09 Temperature 98.2 F 06/04/24 18:09 Pulse Rate 90 06/04/24 18:09 Respiratory Rate 18 06/04/24 18:09 Blood Pressure 132/88 06/04/24 18:09 Pulse Oximetry 98 06/04/24 18:09 Oxygen Delivery Method Room Air 06/04/24 18:09 Medical Decision Making MDM Narrative Medical decision making narrative: Chest x-ray was negative for acute findings. Influenza was negative. Findings were discussed with the patient. A prescription was provided for prednisone. Follow up with pcp for a recheck, further evaluation and treatment. Return precautions were discussed. Medical Records Medical records reviewed: Yes I reviewed the patient's medical records Lab Data Lab results reviewed: Yes I reviewed the patient's lab results Labs: Lab Results 06/04/24 Range/Units 19:20 WBC 11.1 H (4.0-11.0) 10^3/uL RBC 5.69 H (4.20-5.40) 10^6/uL Hgb 17.9 H (12.0-16.0) g/dL Hct 54.4 H (36.0-48.0) % MCV 95.6 (81.0-99.0) fL MCH 31.5 (26.7-34.0) pg MCHC 32.9 (29.9-35.2) g/dL RDW 13.6 (11.0-15.0) % Plt Count 185 (150-450) 10^3/uL MPV 11.3 (9.5-13.5) fL Neut % (Auto) 70.1 (43.0-75.0) % Lymph % (Auto) 18.5 L (20.5-60.0) % Marshall % (Auto) 9.4 (1.7-12.0) % Eos % (Auto) 1.2 (0.9-7.0) % Baso % (Auto) 0.4 (0.2-2.0) % Neut # (Auto) 7.8 H (1.4-6.5) 10^3/uL Lymph # (Auto) 2.1 (1.2-3.8) 10^3/uL Marshall # (Auto) 1.1 H (0.3-0.8) 10^3/uL Eos # (Auto) 0.1 (0.0-0.7) 10^3/uL Baso # (Auto) 0.1 (0.0-0.1) 10^3/uL Abs Immat Gran (auto) 0.04 H (0.00-0.03) 10^3/uL Imm/Tot Granulo (auto) 0.4 (0.0-0.5) % Sodium 142 (136-145) mmol/L Potassium 4.0 (3.5-5.1) mmol/L Chloride 102 (98-107) mmol/L Carbon Dioxide 28.1 (21.0-32.0) mmol/L Anion Gap 15.9 BUN 10.0 (7.0-18.0) mg/dL Creatinine 1.05 H (0.55-1.02) mg/dL Est GFR ( Amer) >60 (>=60 mL/min/1.73m^2) Est GFR (Non-Af Amer) 52 L (>=60 mL/min/1.73m^2) BUN/Creatinine Ratio 9.5 Glucose 228 H (74-106) mg/dL Calcium 10.2 H (8.5-10.1) mg/dL Total Bilirubin 0.6 (0.2-1.0) mg/dL AST 53 H (15-37) U/L ALT 58 (14-59) U/L Alkaline Phosphatase 128 H (46-116) U/L Troponin I High Sens 8.4 (4.0-51.3) pg/mL NT-Pro-B Natriuret Pep 100.0 (<=900.0) pg/mL Total Protein 8.1 (6.4-8.2) g/dL Albumin 3.7 (3.4-5.0) g/dL Globulin 4.4 g/dL Albumin/Globulin Ratio 0.8 Influenza Type A Ag Negative Influenza Type B Ag Negative Imaging Data Chest x-ray: Attestation: I have reviewed the pertinent imaging results. (EKG was reviewed by the attending physician. It showed sinus rhythm. No acute ST segment changes. ) Radiologist's impression: ITS Impressions Chest X-Ray 06/04/24 18:56 IMPRESSION: No acute cardiopulmonary process. Electronically authenticated by: PENELOPE NIX Date: 06/04/2024 20:09 ECG Data Attestation: ?I have reviewed the pertinent ECG results. (EKG was reviewed by the attending physician. It showed sinus rhythm at a rate of 84. No acute ST segment changes. ) Interpretation: Measurements Intervals [place] Rate: 84 P: 76 ND: 178 QRS: 45 QRSD: 82 T: 53 QT: 380 QTc: 421 Interpretive Statements 1100 Sinus rhythm 1102 Sinus arrhythmia 9110 normal ECG Compared to ECG 06/04/2024 18:51:09 First degree AV block no longer present Discharge Plan Discharge Chief Complaint: Arrhythmia/Palpitations Clinical Impression: Viral illness Patient Disposition: Home, Self-Care Time of Disposition Decision: 20:40 Condition: Good Mode of Transportation: Private Vehicle Prescriptions / Home Meds: New prednisone 10 mg tablet See Rx Instructions .ROUTE .COMPLEX Qty: 30 0RF Rx Instructions: Take 5 tablets on days 1-2, 4 tabs on days 3-4, 3 tabs on days 5-6, 2 tabs on days 7-8, 1 tab on days 9-10. Print Language: Greenlandic Instructions: Viral Syndrome (ED) Additional Instructions: Return to the ER for worsening symptoms. Referrals: LINWOOD IRWIN [Primary Care Provider] - 1 week Discharge Date/Time: 06/04/24 20:49
[2024-06-04] MEDS: METHYLPREDNISOLONE SOD SUCC PF 125 MG/2 ML VIAL IVP (19:28)
[2024-06-04 19:37] LABS: Basophils Absolute Auto 0.1 10^3/uL (0.0-0.1); Basophils Percent Auto 0.4 % (0.2-2.0); Eosinophils Absolute Auto 0.1 10^3/uL (0.0-0.7); Eosinophils Percent Auto 1.2 % (0.9-7.0); Hematocrit 54.4 % (36.0-48.0); Hemoglobin 17.9 g/dL (12.0-16.0); Immature Granulocytes Abs Auto 0.04 10^3/uL (0.00-0.03); Immature Granulocytes Pct Auto 0.4 % (0.0-0.5); Lymphocytes Absolute Auto 2.1 10^3/uL (1.2-3.8); Lymphocytes Percent Auto 18.5 % (20.5-60.0); Mean Corpuscular HGB Conc 32.9 g/dL (29.9-35.2); Mean Corpuscular Hemoglobin 31.5 pg (26.7-34.0); Mean Corpuscular Volume 95.6 fL (81.0-99.0); Mean Platelet Volume 11.3 fL (9.5-13.5); Monocytes Absolute Auto 1.1 10^3/uL (0.3-0.8); Monocytes Percent Auto 9.4 % (1.7-12.0); Neutrophils Absolute Auto 7.8 10^3/uL (1.4-6.5); Neutrophils Percent Auto 70.1 % (43.0-75.0); Platelet Count 185 10^3/uL (150-450); Red Blood Count 5.69 10^6/uL (4.20-5.40); Red Cell Distribution Width 13.6 % (11.0-15.0); White Blood Count 11.1 10^3/uL (4.0-11.0)
[2024-06-04 19:48] LABS: Influenza Virus A Antigen Negative; Influenza Virus B Antigen Negative; Internal Control Within Normal Limits
[2024-06-04 19:58] LABS: Alanine Aminotransferase 58 U/L (14-59); Albumin Globulin Ratio 0.8; Albumin Level 3.7 g/dL (3.4-5.0); Alkaline Phosphatase 128 U/L (46-116); Anion Gap 15.9; Aspartate Amino Transferase 53 U/L (15-37); BUN Creatinine Ratio 9.5; Bilirubin Total 0.6 mg/dL (0.2-1.0); Calcium 10.2 mg/dL (8.5-10.1); Carbon Dioxide 28.1 mmol/L (21.0-32.0); Chloride 102 mmol/L (98-107); Estimated GFR (African America >60 (>=60 mL/min/1.73m^2); Estimated GFR (Non-African Ame 52 (>=60 mL/min/1.73m^2); Globulin 4.4 g/dL; Glucose 228 mg/dL (74-106); Sodium 142 mmol/L (136-145); Total Protein 8.1 g/dL (6.4-8.2); Troponin I High Sensitivity 8.4 pg/mL (4.0-51.3)
== END 2024-06-04 20:49 | disposition home or self-care (01) ==
PROVIDERS: Nurse Practitioner Family; Emergency Provider Emergency Medicine; Family Provider Family Medicine; PCP Specialist
DX: B34.9 Viral infection, unspecified (principal); I50.9 Heart failure, unspecified; I48.91 Unspecified atrial fibrillation; F17.200 Nicotine dependence, unspecified, uncomplicated
CPT/HCPCS: 36415; 71045; 80053; 83880; 84484; 85025; 87804; 93005; 96374; 99285; J2919

== ENCOUNTER 2024-07-06 19:58 | Emergency (ER) | payer MEDICARE, SELFPAY ==
[2024-07-06] VITALS (24 sets, daily range): BP systolic 107–134; BP diastolic 69–92; PULSE 92; TEMP 36.8; O2SAT 81–98; BMI 31.3
--- NOTE | 2024-07-06 20:10 | ED.ABDPAIN1 ---
Documented by User: JOSELITO Garcia 07/06/24 22:03 HPI - Abdominal Pain General Chief Complaint: Abdominal Pain Stated Complaint: ABDOMINAL PAIN Time Seen by Provider: 07/06/24 20:02 Source: patient Mode of arrival: ambulance Limitations: no limitations History of Present Illness HPI narrative: Patient is a 68-year-old female who presents to the emergency department by ambulance for increasing right flank pain throughout the day today. She states about a year ago she had her gallbladder removed at [facility]. She has not had any fevers, chills, vomiting or diarrhea today. She denies any urinary symptoms. She has had a previous hysterectomy. She denies any other abdominal surgeries previously. She does not believe she has ever had a kidney stone. EMS started fluids. She has a history of insulin-dependent diabetes, she states her blood sugars have been in the 200s-300s recently. Related Data Allergies Allergy/AdvReac Type Severity Reaction Status Date / Time Sulfa (Sulfonamide Allergy Mild Vomiting Verified 07/06/24 20:03 Antibiotics) Review of Systems ROS Constitutional Denies: fever or chills Ears, nose, mouth, and throat Denies: throat pain or nasal congestion Cardiovascular Denies: chest pain Respiratory Denies: shortness of breath or cough Gastrointestinal Reports: abdominal pain; Denies: nausea, vomiting or diarrhea Genitourinary Denies: painful urination Musculoskeletal Reports: back pain; Denies: neck pain Integumentary/Breast Denies: rash Neurological Denies: numbness in extremities or weakness in extremities Hematologic/Lymphatic Denies: easy bruising or easy bleeding PFSH PFS Social History Little interest or pleasure in doing things: not at all Feeling down, depressed, or hopeless: not at all Exam Narrative Exam Narrative: Gen.: Awake, alert, in no distress Head: Normocephalic, atraumatic ENT: Moist mucous membranes Respiratory: No respiratory distress, lungs clear bilaterally Cardio: Regular rate and rhythm Gastrointestinal: Abdomen is soft, nondistended and diffusely tender to palpation of the right lower quadrant and right flank with no guarding or rebound, abdomen is obese. Well-healed laparoscopic incisions to the right upper quadrant Extremities: Moves extremities equally Psych: Normal mood and affect Neuro: No focal neuro deficit Skin: Warm, dry, intact Constitutional Vital Signs, click to edit/add: Last Vital Signs Temp 98.2 F 07/06/24 20:01 Pulse 92 H 07/06/24 20:01 Resp 18 07/06/24 20:01 BP 117/79 07/06/24 22:00 Pulse Ox 96 07/06/24 22:10 O2 Del Method Nasal Cannula 07/06/24 22:00 Course Vital Signs Vital signs: Vital Signs Temperature 98.2 F 07/06/24 20:01 Pulse Rate 92 H 07/06/24 20:01 Respiratory Rate 18 07/06/24 20:01 Blood Pressure 131/77 07/06/24 20:01 Pulse Oximetry 94 L 07/06/24 20:01 Oxygen Delivery Method Room Air 07/06/24 20:01 Temperature 98.2 F 07/06/24 20:01 Pulse Rate 92 H 07/06/24 20:01 Respiratory Rate 18 07/06/24 20:01 Blood Pressure 117/79 07/06/24 22:00 Pulse Oximetry 96 07/06/24 22:10 Oxygen Delivery Method Nasal Cannula 07/06/24 22:00 MDM - Abdominal Pain MDM Narrative Medical decision making narrative: 2201: Patient medicated for pain, given IV fluids and initial lactic acid is elevated. Repeat lactic is improved. CT of the abdomen and pelvis is pending at this time. Patient is hemodynamically stable with abdomen soft and benign. Case is turned over to attending physician at this time SHARED APC VISIT, PHYSICIAN ATTESTATION: [id number] I performed a substantive part of the MDM during the patient?s E/M visit. I personally evaluated and examined the patient. I personally made or approved the documented management plan and acknowledge its risk of complications. Medical Records Attestation: I reviewed the patient's medical records. Lab Data Attestation: I reviewed the patient's lab results. Labs: Lab Results 07/06/24 07/06/24 07/06/24 Range/Units 20:19 20:37 21:20 WBC 9.7 (4.0-11.0) 10^3/uL RBC 4.92 (4.20-5.40) 10^6/uL Hgb 15.5 (12.0-16.0) g/dL Hct 47.4 (36.0-48.0) % MCV 96.3 (81.0-99.0) fL MCH 31.5 (26.7-34.0) pg MCHC 32.7 (29.9-35.2) g/dL RDW 13.5 (11.0-15.0) % Plt Count 113 L (150-450) 10^3/uL MPV 11.7 (9.5-13.5) fL Neut % (Auto) 75.1 H (43.0-75.0) % Lymph % (Auto) 12.3 L (20.5-60.0) % [place] % (Auto) 9.4 (1.7-12.0) % Eos % (Auto) 2.3 (0.9-7.0) % Baso % (Auto) 0.3 (0.2-2.0) % Neut # (Auto) 7.3 H (1.4-6.5) 10^3/uL Lymph # (Auto) 1.2 (1.2-3.8) 10^3/uL [place] # (Auto) 0.9 H (0.3-0.8) 10^3/uL Eos # (Auto) 0.2 (0.0-0.7) 10^3/uL Baso # (Auto) 0.0 (0.0-0.1) 10^3/uL Abs Immat Gran (auto) 0.06 H (0.00-0.03) 10^3/uL Imm/Tot Granulo (auto) 0.6 H (0.0-0.5) % PT 11.3 (9.0-11.6) sec INR 1.07 Sodium 136 (136-145) mmol/L Potassium 4.3 (3.5-5.1) mmol/L Chloride 101 (98-107) mmol/L Carbon Dioxide 27.8 (21.0-32.0) mmol/L Anion Gap 11.5 BUN 12.0 (7.0-18.0) mg/dL Creatinine 1.14 H (0.55-1.02) mg/dL Est GFR ( Amer) 58 L (>=60 mL/min/1.73m^2) Est GFR (Non-Af Amer) 48 L (>=60 mL/min/1.73m^2) BUN/Creatinine Ratio 10.5 Glucose 388 H (74-106) mg/dL Lactate 3.0 H* 2.3 H* (0.4-2.0) mmol/L Calcium 9.8 (8.5-10.1) mg/dL Total Bilirubin 0.5 (0.2-1.0) mg/dL AST 28 (15-37) U/L ALT 30 (14-59) U/L Alkaline Phosphatase 123 H (46-116) U/L Total Protein 6.8 (6.4-8.2) g/dL Albumin 3.1 L (3.4-5.0) g/dL Globulin 3.7 g/dL Albumin/Globulin Ratio 0.8 Lipase 94.0 H (16.0-77.0) U/L Urine Color Lt. yellow (YELLOW) Urine Clarity Clear (CLEAR) Urine pH 6.0 (5.0-9.0) Ur Specific Dwight <=1.005 A (1.005-1.025) Urine Protein Negative (NEG/TRACE) mg/dL Urine Glucose (UA) >=1000 A (NEGATIVE) mg/dL Urine Ketones Negative (NEGATIVE) mg/dL Urine Occult Blood Trace-i (NEGATIVE) Urine Nitrite Negative (NEGATIVE) Urine Bilirubin Negative (NEGATIVE) Urine Urobilinogen 0.2 (0.2-1.0) EU/dL Ur Leukocyte Esterase Negative (NEGATIVE) Urine RBC 0-2 (0-2) #/HPF Urine WBC 2-5 A (NONE SEEN) #/HPF Ur Squamous Epith Cells Rare (NONE/RARE) #/LPF Urine Crystals None seen (None Seen) #/HPF Urine Bacteria Small A (NONE SEEN) #/HPF Urine Casts None seen (NONE SEEN) #/LPF Urine Mucus None seen (NONE SEEN) Urine Yeast Seen A (NONE SEEN) Ur [place] [place] Chief Complaint: Abdominal Pain Clinical Impression: Abdominal pain Patient Disposition: Home, Self-Care Print Language: Citizen [place] Instructions: Abdominal Pain (ED) Additional Instructions: follow up with your doctor in next couple of days for recheck Referrals: Physician,Non-Staff, [Physician] - 1 week Documented by User: Tom Lambert MD 07/06/24 23:25 HPI - Abdominal Pain General Chief Complaint: Abdominal Pain Stated Complaint: ABDOMINAL PAIN Time Seen by Provider: 07/06/24 20:02 Related Data Allergies Allergy/AdvReac Type Severity Reaction Status Date / Time Sulfa (Sulfonamide Allergy Mild Vomiting Verified 07/06/24 20:03 Antibiotics) PFSH PFS Social History Little interest or pleasure in doing things: not at all Feeling down, depressed, or hopeless: not at all Exam Constitutional Vital Signs, click to edit/add: Last Vital Signs Temp 98.2 F 07/06/24 20:01 Pulse 92 H 07/06/24 20:01 Resp 18 07/06/24 20:01 BP 117/79 07/06/24 22:00 Pulse Ox 96 07/06/24 22:10 O2 Del Method Nasal Cannula 07/06/24 22:00 Course Vital Signs Vital signs: Vital Signs Temperature 98.2 F 07/06/24 20:01 Pulse Rate 92 H 07/06/24 20:01 Respiratory Rate 18 07/06/24 20:01 Blood Pressure 131/77 07/06/24 20:01 Pulse Oximetry 94 L 07/06/24 20:01 Oxygen Delivery Method Room Air 07/06/24 20:01 Temperature 98.2 F 07/06/24 20:01 Pulse Rate 92 H 07/06/24 20:01 Respiratory Rate 18 07/06/24 20:01 Blood Pressure 117/79 07/06/24 22:00 Pulse Oximetry 96 07/06/24 22:10 Oxygen Delivery Method Nasal Cannula 07/06/24 22:00 MDM - Abdominal Pain MDM Narrative Medical decision making narrative: 2201: Patient medicated for pain, given IV fluids and initial lactic acid is elevated. Repeat lactic is improved. CT of the abdomen and pelvis is pending at this time. Patient is hemodynamically stable with abdomen soft and benign. Case is turned over to attending physician at this time Care transferred at change of PA shift. CT abdomen pending without acute findings. patient re examined and is resting comfortably in no distress at this time. Labs reviewed as well. Patient informed that it remains unclear why she has the pain. Will discharge home and have her follow up with her doctor for recheck. Pain pills provided for tonight if she needs them SHARED APC VISIT, PHYSICIAN ATTESTATION: [id number] I performed a substantive part of the MDM during the patient?s E/M visit. I personally evaluated and examined the patient. I personally made or approved the documented management plan and acknowledge its risk of complications. Lab Data Labs: Lab Results 07/06/24 07/06/24 07/06/24 Range/Units 20:19 20:37 21:20 WBC 9.7 (4.0-11.0) 10^3/uL RBC 4.92 (4.20-5.40) 10^6/uL Hgb 15.5 (12.0-16.0) g/dL Hct 47.4 (36.0-48.0) % MCV 96.3 (81.0-99.0) fL MCH 31.5 (26.7-34.0) pg MCHC 32.7 (29.9-35.2) g/dL RDW 13.5 (11.0-15.0) % Plt Count 113 L (150-450) 10^3/uL MPV 11.7 (9.5-13.5) fL Neut % (Auto) 75.1 H (43.0-75.0) % Lymph % (Auto) 12.3 L (20.5-60.0) % [place] % (Auto) 9.4 (1.7-12.0) % Eos % (Auto) 2.3 (0.9-7.0) % Baso % (Auto) 0.3 (0.2-2.0) % Neut # (Auto) 7.3 H (1.4-6.5) 10^3/uL Lymph # (Auto) 1.2 (1.2-3.8) 10^3/uL [place] # (Auto) 0.9 H (0.3-0.8) 10^3/uL Eos # (Auto) 0.2 (0.0-0.7) 10^3/uL Baso # (Auto) 0.0 (0.0-0.1) 10^3/uL Abs Immat Gran (auto) 0.06 H (0.00-0.03) 10^3/uL Imm/Tot Granulo (auto) 0.6 H (0.0-0.5) % PT 11.3 (9.0-11.6) sec INR 1.07 Sodium 136 (136-145) mmol/L Potassium 4.3 (3.5-5.1) mmol/L Chloride 101 (98-107) mmol/L Carbon Dioxide 27.8 (21.0-32.0) mmol/L Anion Gap 11.5 BUN 12.0 (7.0-18.0) mg/dL Creatinine 1.14 H (0.55-1.02) mg/dL Est GFR ( Amer) 58 L (>=60 mL/min/1.73m^2) Est GFR (Non-Af Amer) 48 L (>=60 mL/min/1.73m^2) BUN/Creatinine Ratio 10.5 Glucose 388 H (74-106) mg/dL Lactate 3.0 H* 2.3 H* (0.4-2.0) mmol/L Calcium 9.8 (8.5-10.1) mg/dL Total Bilirubin 0.5 (0.2-1.0) mg/dL AST 28 (15-37) U/L ALT 30 (14-59) U/L Alkaline Phosphatase 123 H (46-116) U/L Total Protein 6.8 (6.4-8.2) g/dL Albumin 3.1 L (3.4-5.0) g/dL Globulin 3.7 g/dL Albumin/Globulin Ratio 0.8 Lipase 94.0 H (16.0-77.0) U/L Urine Color Lt. yellow (YELLOW) Urine Clarity Clear (CLEAR) Urine pH 6.0 (5.0-9.0) Ur Specific [place] <=1.005 A (1.005-1.025) Urine Protein Negative (NEG/TRACE) mg/dL Urine Glucose (UA) >=1000 A (NEGATIVE) mg/dL Urine Ketones Negative (NEGATIVE) mg/dL Urine Occult Blood Trace-i (NEGATIVE) Urine Nitrite Negative (NEGATIVE) Urine Bilirubin Negative (NEGATIVE) Urine Urobilinogen 0.2 (0.2-1.0) EU/dL Ur Leukocyte Esterase Negative (NEGATIVE) Urine RBC 0-2 (0-2) #/HPF Urine WBC 2-5 A (NONE SEEN) #/HPF Ur Squamous Epith Cells Rare (NONE/RARE) #/LPF Urine Crystals None seen (None Seen) #/HPF Urine Bacteria Small A (NONE SEEN) #/HPF Urine Casts None seen (NONE SEEN) #/LPF Urine Mucus None seen (NONE SEEN) Urine Yeast Seen A (NONE SEEN) Ur [place] [place] Discharge Chief Complaint: Abdominal Pain Clinical Impression: Abdominal pain Patient Disposition: Home, Self-Care Print Language: Citizen Of [place] Instructions: Abdominal Pain (ED) Additional Instructions: follow up with your doctor in next couple of days for recheck Referrals: Physician,Non-Staff, [Physician] - 1 week
--- OUTSIDE RECORDS SUMMARY | 2024-07-06 20:10 | XMS_ITS | CCD ---
Author Organization [facility] Care Team Providers Care Molder Hand Name Role Phone MATTHEW VOSS MD Unavailable [...] Care Provider DO Sandra Keita Attending Provider [phone] Reyna Dallas Unavailable Brayden Noble Unavailable [phone] DO Jonas Yoder Primary Care Provider NITZA Russell Attending Provider Keita, Sandra A Primary Care Provider Keita, DO Sandra A Attending Provider Keita, DO Sandra A Primary Care Provider Keita, DO Sandra A Attending Provider NITZA Russell Attending Provider DO Edgar Valenzuela Emergency Provider MD Elva Florian Admit Provider MD Elva Florian Attending Provider [phone] BRENDA Paz Marli Other Provider Unavailable DO Elly Yoo Other Provider MD Ric Lamar Other Provider MD Jonas Ch Other Provider MD Roland Faust Other Provider MD Manjit Barbosa Other Provider NITZA Fritz Other Provider MD Stephanie Stoll Other Provider MD Jann Kaplan Naaretha Other Provider MD Cara Tenorio Other Provider Fidel [facility] Elizabeth Samayoa Other Provider MD Ashley Cheatham Other Provider Debbie BONNER, Sandra A Primary Care Provider DO Debbie Sandra A Primary Care Provider MD Oz Kincaid Attending Provider MD Jonas Ch Attending Provider DO Reynold Daily Emergency Provider DO Jluis Campos Admit Provider DO Jluis Campos Attending Provider Saranya Wright Other Provider Unavailable Fay, PhD Cash Other Provider DO Jelly Tuttle Other Provider MD John Murillo Other Provider DO Lit Clark Other Provider Dar, [facility] Dayana Other Provider DO Roque Isidro Other Provider NITZA Calvo Other Provider CHERYL Medina Other Provider [phone] Patrice TERMINAL COMPUTER OPERATOR-WILDLIFE MANAGER-C Jeanine E Other Provider MD Chaka Frye Attending Provider [phone] DO Reynold Daily Emergency Provider [phone] DO Jluis Campos Admit Provider Saranya Wright Other Provider Unavailable Fay, PhD Cash Other Provider DO Jelly Tuttle Other Provider MD John Murillo Other Provider DO Lit Clark Other Provider Dar [facility] Dayana Other Provider DO Roque Isidro Other Provider NITZA Calvo Other Provider CHERYL Medina Other Provider Patrice TERMINAL COMPUTER OPERATORWILDLIFE MANAGER-C Jeanine E Other Provider MD Chaka Frye Attending Provider NITZA Salinas Referring Provider KeitaDO Sandra A Primary Care Provider MD Jonas Ch Referring Provider MD Roland Faust Attending Provider BARRIE Fritz Attending Provider Keita DO, Sandra Primary Care Provider KeitaDO Sandra A Primary Care Provider MD Oz Kincaid Attending Provider CHAPARRITA, OZ Snyder Attending Unavailable JALYN ARMENDARIZ Attending Unavailable BEMatt, OZ Snyder Referring Unavailable BEJ, OZ Snyder Attending Unavailable BEJ, OZ Snyder Referring Unavailable BEJ, OZ Snyder Attending Unavailable BEJ, OZ Snyder Attending Unavailable BEMatt, OZ Snyder Referring Unavailable BEJ, OZ Snyder Attending Unavailable BEJ, OZ Snyder Referring Unavailable AMY, KARL H Attending Unavailable BEJ, OZ Snyder Attending Unavailable FRITZ, KARL H Attending Unavailable AMY, KARL H Attending Unavailable AMY, KARL H Attending Unavailable BEJ, OZ Snyder Attending Unavailable BEJ, OZ Snyder Attending Unavailable FRITZ, KARL H Attending Unavailable Debbie DO, Sandra A Primary Care Provider Manjit Gleason MD Attending Provider Reynold Daily DO Emergency Provider [phone] Wesley Villafuerte PA-C Emergency Provider Chico Hearn DO Admit Provider hCico Hearn DO Attending Provider Priscilla Lang MD Attending Provider [phone] Lit Clark DO Other Provider Debbie DO, Sandra A Primary Care Provider Keita DO, Sandra A Attending Provider [phone] Keita DO, Sandra A Primary Care Provider Roland Faust MD Attending Provider Angelique Russell APRN Other Provider [phone] Nataliya Jane APRN Attending Provider Oz Kincaid MD Referring Provider KEITA, SANDRA A Primary Care Unavailable JONAS CH Attending Unavailable KEITA, SANDRA A Primary Care Unavailable JONAS CH Attending Unavailable KEITA, SANDRA A Primary Care Unavailable JONAS CH Referring Unavailable TRABOULSSI, MOURHAF Referring Unavailable KEITA, SANDRA A Primary Care Unavailable TRABOULSSI, MOGAYHAF Attending Unavailable KEITA, SANDRA A Primary Care Unavailable TRABCATHERINEI, MOURHAF Referring Unavailable TRABOULTWANIJOEF Attending Unavailable TRABOULSSI, MOURHAF Referring Unavailable KEITA, SANDRA A Primary Care Unavailable FRANDY, JOEF Attending Unavailable JONAS CH Referring Unavailable KEITA, SANDRA A Primary Care Unavailable Keita, Sandra A Primary Care Unavailable Lit Clakr Consulting Unavailab Priscilla Kovacs Attending Unavailable Chico Hearn Admitting Unavailable Keita, Sandra A Primary Care Unavailable Elva Florian Attending Unavailable Marli Paz Consulting Unavailable Elva Florian Admitting Unavailable Elly Yoo Consulting Unavailable Ric Lamar Consulting Unavailable Jonas Ch Consulting Unavail able Frandy, Mourhaf Consulting Unavailable Manjit Barbosa Consulting Unavailab Naida Pulliam Consulting Unavailable Stephanie Stoll Consulting Unavailable Jann Kaplan Consulting Unavailab Cara Spencer Consulting Unavailable Elizabeth Parra Consulting Unavailable Ashley Cheatham Consulting Unavailable Karl Fritz Attending Unavailable Karl Fritz Admitting Unavailable Keita, Sandra A Primary Care Unavailable Saranya Wright Consulting Unavailable Jluis Campos Admitting Unavailable Chaka Frye Attending Unavailab Cash Landeros Consulting Unavailable Jelly Tuttle Consulting Unavailable John Murillo Consulting Unavailable Lit Clark Consulting Unavailab Dayana Macias Consulting Unavailable Roque Isidro Consulting Unavailable Tracy Calvo Consulting Unavailable Tayler Medina Consulting Unavailable Jeanine Ibrahim Consulting Unavailable BeOz ngo Admitting Unavailable Tolu Salinas Referring Unavailable Keita, Sandra A Primary Care Unavailable Oz Kincaid Attending Unavailable Oz Kincaid Admitting Unavailable Keita, Sandra A Primary Care Unavailable Oz Kincaid Attending Unavailable Keita, Sandra A Primary Care Unavailable Traboulssi, Mourhaf Attending Unavailable Traboulssi, Mourhaf Admitting Unavailable Keita, Sandra A Primary Care Unavailable Traboulssi, Mourhaf Admitting Unavailable Traboulssi, Mourhaf Attending Unavailable Mapus, Tondra K Consulting Unavailable Keita, Sandra A Primary Care Unavailable Reynold Daily Attending Unavailable Reynold Daily Admitting Unavailable Nataliya Jane Attending Unavail able Keita, Sandra A Primary Care Unavailable CandelariabosNataliya duran Admitting Unavail able Oz Kincaid Referring Unavailable Keita, Sandra A Primary Care Unavailable Keita, Sandra A Attending Unavailable Keita, Sandra A Admitting Unavailable Keita, Sandra A Attending Unavailable Keita, Sandra A Admitting Unavailable Keita, Sandra A Primary Care Unavailable Keita, Sandra A Primary Care Unavailable Oz Kincaid Attending Unavailable Oz Kincaid Admitting Unavailable Keita, Sandra A Primary Care Unavailable Jonas Ch Attending Unavail able Jonas Ch Referring Unavail able Jonas Ch Admitting Unavail able Keita, Sandra A Primary Care Unavailable Mapus, Tondra K Attending Unavailable Mapus, Tondra K Admitting Unavailable Keita, Sandra A Primary Care Unavailable Asaad Imad Attending Unavailable Asaad, Imad Admitting Unavailable Keita, Sandra A Primary Care Unavailable Oz Kincaid Attending Unavailable Oz Kincaid Admitting Unavailable Ketia, Sandra A Primary Care Unavailable Jonas Ch Attending Unavail able Jonas Ch Admitting Unavail able Allergies Allergy Classification Reported Allergen(s) Allergy Type Date of Onset Reaction(s) Facility (20 sources) Sulfamethoxazole ; 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: [sulfamethoxazol e] Drug Allergy 3 Unknown [facility] Repository (15 sources) Sulfonamides (Antibiotic); 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: [SULFA (SULFONAMIDE ANTIBIOTICS)] Allergy to substance 9 GI intolerance, Unknown, Nausea/vomiting [facility] (20 sources) Sulfonamides (Antibiotic) Drug Allergy 9 [...] PO Twice daily 180 December 03, 2023 12:05pm aspirin 81 mg [...] DCed Active carvedilol 12.5 mg oral tablet (18 sources) alpha-Adrenergic Debbie, beta-Adrenergic Debbie Start: 03-09-2024 End: 03-09-2025 take 1 tablet by mouth in the morning carvedilol (Coreg) 12.5 MG tablet Take 12.5 mg by mouth in the morning and 12.5 mg in the evening. Take with meals. 03/09/2024 03/09/2025 Active cefuroxime 500 mg oral tablet (20 [...] Twice daily 6 December 13, 2021 12:00am Continuous Blood Gluc [...] Start: 06-12-2023 take 1 capsule by mouth in the morning Docusate Sodium (DSS) 100 MG capsule Take 100 mg by mouth in the morning and 100 mg in the evening. 06/12/2023 Active Start: 02-09-2021 End: 06-12-2023 take 1 capsule by mouth three times daily Docusate Sodium (Stool Softener) 100 mg capsule Discontinued 100 MG PO Three times daily June 12, 2023 8:08am June 12, 2023 3:43pm take 1 capsule by mo ut twice daily docusate sodium (Colace) 100 mg capsule Take 1 capsule (100 mg) by mouth 2 times a day. Active Stool Softener 1 00 MG 3 tablet as needed in the morning and 1 tablet in the evening Orally bid PRN Active donepezil hydrochloride 10 m g oral tablet (20 sources) Start: 02-25-2024 donepezil (Braeden cept) 10 MG tablet Indications: Cognitive decline Up to 2 QAM if tolerated 60 tablet 3 02/25/2024 Active take 1 tablet by mouth twice hansel ly donepezil (Aricept) 10 mg tablet Take 1 tablet (10 mg) by mouth 2 times a day. Active Easy Touch Lancing Device - (4 sources) Easy Touch Lanci ng Device - as directed Active empagliflozin 25 mg oral tablet (20 sources) Sodium-Glucose Cotransporter 2 Inhibitor Start: 02-10-20 End: 04-28-20 take 1 tablet by mouth once daily Empagliflozin (Jardiance) 25 mg tablet Active 25 MG PO Daily 90 April 28, 2024 12:58pm Flash Glucose Sensor (Freestyle Brent 14 Day Sensor) kit (20 sources) Start: 01-10-20 Flash Glucose Sensor (Freestyle Brent 14 Day Sensor) kit Active 0 .ROUTE .MEDSUPPLY 2 January 09, 2024 11:00pm As directed Change [...] Day Sensor) kit Active 0 .ROUTE .MEDSUPPLY 2 July 22, 2023 12:00am As directed Change every 14 days folic acid 1 mg oral tablet (20 sources) Start: 05-11-2024 take 1 tablet by mouth once daily Folic Acid 1 mg tablet Active 0 .ROUTE .COMPLEX 90 May 11, 2024 7:37am TAKE 1 TABLET BY MOUTH EVERY DAY Start: 02-09-2021 End: 05-11-2024 take 1 tablet by mouth once daily folic acid (Folvite) 1 MG tablet Take 1,000 mcg by mouth Daily 10/16/2023 Active FreeStyle Brent 14 Day Senso r - [...] prn Active furosemide 20 mg oral tablet (4 sources) Loop Diuretic Start: 05-07-2024 End: 05-07-2025 take 1 tablet by mouth every other day furosemide (Lasix) 20 mg tablet Indications: Shortness of breath , Edema, unspecified type Take 1 tablet (20 mg) by mouth every other day. 45 tablet 3 05/07/2024 05/07/2025 Active Start: 05-07-2024 Furosemide 20 mg tablet Active [...] [IU] by razo bcutaneous injection once daily Toujeo SoloStar 300 UNIT/ML 20 units once daily [...] Not-Taking Insulin Lispro 100 unit/mL insulin pen (12 sources) Start: 12-23-2023 Insulin Lispro 100 unit/mL [...] mg magnesium) tablet Active 0 .ROUTE .COMPLEX January 29, 2024 9:22am TAKE 1 TABLET BY MOUTH TWICE A DAY Start: 01-29-2024 take 1 tablet by umer th twice daily Magnesium Oxide Active 0 .ROUTE .COMPLEX January 29, 2024 10:22am TAKE 1 TABLET BY MOUTH TWICE A DAY Start: 11-18-2023 End: 01-29-2024 take 1 tablet by mouth in the morning magnesium oxide (Mag-Ox) 400 (240 Mg) MG tablet Take 400 mg by mouth in the morning and 400 mg before bedtime. 01/02/2024 Active Start: 09-14-2023 End: 10-10-2024 take 1 tablet by mouth once daily Magnesium Oxide (Magox) 400 mg (241.3 mg magnesium) tablet Discontinued 400 MG PO Daily September 13, 2023 11:00pm November 18, 2023 1:05pm memantine hydrochloride 10 mg oral tablet (20 sources) Z-mmpcll-X-aspartate Receptor Antagonist Start: 04-28-2024 take 1 tablet [...] Take 500 mg by mouth 08/26/2023 Active Miscellaneous Medical Supply (20 sources) Start: 11-26-2023 Miscellaneous Medical Supply Active 0 .Route November 26, 2023 2:24pm Hospital Bed Start: 11-26-2023 End: 11-26-2023 Miscellaneous Medical Supply Discontinued 0 .Route November 26, 2023 2:22pm November 26, 2023 2:25pm As directed Start: 2023 End: 11-26-2023 Miscellaneous Medical Supply Discontinued 0 .Route 2023 2:20pm November 26, 2023 2:23pm As directed Start: 09-30-2023 End: 2023 Miscellaneous Medical Supply Discontinued 0 .Route September 30, 2023 8:33am 2023 2:21pm As directed Start: 09-30-2023 Miscellaneous Medical Supply Active 0 .Route 1 September 30, 2023 8:33am As directed Start: 09-17-2023 End: 09-30-2023 Miscellaneous Medical Supply Discontinued 0 .Route 1 September 17, 2023 12:00am September 30, 2023 8:33am As directed Start: 09-17-2023 Miscellaneous Medical Supply Active 0 .Route September 17, 2023 12:00am As directed Multivitamin [...] Orally Once a day Active Multivitamin tablet (6 sources) Start: 06-12-2023 take 1 tablet by mouth once daily Multivitamin tablet Active 1 TAB PO Daily June 12, 2023 8:10am 24 hr nicotine 0.875 mg/hr transdermal system (3 sources) Cholinergic Nicotinic Agonist Start: 05-07-2024 apply 1 dose transdermal route every twenty-four hours Nicotine 21 mg/24 hr patch 24 hour Active 1 PATCH TRANSDERML Daily May 07, 2024 12:00am nortriptyline 25 mg oral capsule (20 sources) Tricyclic Antidepressant Start: 02-25-2024 End: 08-23-2024 take 1 capsule by mouth at bedtime nortriptyline (Pamelor) 25 MG capsule Indications: Neurogenic pain Take 1 capsule (25 mg) by mouth at bedtime 30 capsule 5 02/25/2024 08/23/2024 Active Start: 06-18-2023 End: 11-18-2023 take 100 mg by mouth once daily Nortriptyline Disconti nued 100 MG PO Daily 180 October 16, 2023 7:37am November 18, 2023 2:05pm Start: 01-04-2023 End: 02-25-2024 take 1 capsule by mouth once daily Nortriptyline 50 mg capsule Discontinued 50 MG PO Daily 90 November 18, 2023 1:01pm February 03, [...] 18, 2023 7:10pm take 1 capsule by [facility] every twenty-four hours Nortriptyline HCl 50 [...] 12/10/2022 Active pen needle, diabetic (Sure-Fine Pen [place]) (20 sources) Start: 06-12-2023 pen needle, diabetic (Sure-Fine Pen [place]) Active .Route June 12, 2023 1:00am Start: 06-12-2023 pen needle, di abetic (Sure-Fine Pen [place]) Active .Route June 12, 2023 12:00am Start: 06-12-2023 pen needle, di abetic (Sure-Fine Pen [place]) Active .ROUTE June 12, 2023 12:00am pregabalin 300 mg oral capsule (20 sources) Start: 01-15-2024 take 1 capsule by mouth once daily Pregabalin 300 mg capsule Active 300 MG PO Daily January 14, 2024 11:00pm Start: 01-15-2024 Pregabalin Act abdifatah MG PO January 15, 2024 12:00am Start: 01-07-2024 take 1 capsule by mo uth twice daily pregabalin (Lyrica) 300 MG capsule Indications: Neurogenic pain TAKE 1 CAPSULE BY MOUTH TWICE A DAY 60 capsule 3 01/07/2024 Active Start: 11-18-2023 End: 01-15-2024 take 1 capsule by mouth twice daily Pregabalin (Lyrica) 150 mg capsule Discontinued 150 MG PO Twice daily November 17, 2023 11:00pm January 15, 2024 2:40pm semaglutide (Ozempic) 1 mg/d ose (4 mg/3 mL) pen injector (5 sources) Start: 12-10-2022 semaglutide (O zempic) 1 mg/dose (4 mg/3 mL) pen injector 2 mg 1 (one) time per week. 12/10/2022 Active Start: 12-10-2022 inject 1 mg by subcu taneous injection every week semaglutide (Ozempic) 1 mg/dose (4 mg/3 mL) pen injector Administer 1mg subcutaneously once weekly 12/10/2022 Active Semaglutide (Ozempic) 2 mg/dose (8 mg/3 mL) pen injector (6 sources) Start: 04-28-2024 inject 2 mg by [...] April 30, 2024 10:26am Start: 02-09-2021 End: 05-22-2025 take 1 tablet by mouth at bedtime simvastatin (Zocor) 20 MG tablet Take 20 mg by mouth at bedtime. 12/04/2022 Active temazepam 30 mg oral capsule (20 sources) Benzodiazepine Start: 10-10-2022 End: 06-26-2024 take 1 capsule by mouth at bedtime [...] 17, 2021 5:00am take 1 capsule by [facility] every twenty-four hours Temazepam 15 MG 1 [...] Not-Taking Start: 10-12-2021 take 1 tablet by [facility] twice daily Varenicline Tartrate 1 MG 1 tablet after eating with a full glass of water Orally Twice a day for 30 days Sep, Not-Taking vitamin b12 2.5 mg oral tablet (20 sources) Vitamin B12 Start: 11-14-2023 cyanocobalamin (Vitamin B-12) 2500 MCG tablet 11/14/2023 Active Start: 11-14-2023 take 1 capsule by [facility] once daily Cyanocobalamin (Vitamin B-12) 1,000 [...] mg / clavulanate 125 mg oral tablet (8 sources) Penicillin-class Antibacterial Start: 01-15-2024 End: 04-14-2024 [...] 11:17am Insulin Lispro 100 unit/mL Insulin Pen (6 sources) Start: 10-10-2022 End: 06-12-2023 inject 1 [...] Miscellaneous Medical Supply misc Discontinued 0 .Route September 30, 2023 7:33am 2023 1:21pm As directed Start: 09-17-2023 End: 09-30-2023 Miscellaneous Medical Supply misc Discontinued 0 .Route 1 September 16, 2023 11:00pm September 30, 2023 7:33am As directed Multivitamin Tablet (6 sources) Start: 02-09-2021 End: 06-12-2023 take 1 tablet by mouth twice daily Multivitamin Tablet Discontinued 1 TAB PO Twice daily February 08, 2021 11:00pm June 12, 2023 8:13am pioglitazone 15 mg oral tablet (20 sources) Peroxisome Proliferator Receptor alpha Agonist, Peroxisome Proliferator Receptor gamma Agonist, Thiazolidinedione Start: 02-09-2021 End: 06-26-2024 take 1 tablet by mouth once daily [...] subcutaneously every week for 84 Active Semaglutide (6 sources) Start: 04-28-2024 End: 04-28-2024 inject 1 mg by subcutaneous injection every week Semaglutide (Ozempic) 1 mg/dose (4 mg/3 mL) pen injector Discontinued 1 MG SUBCUT every week April 28, 2024 12:00am April 28, 2024 12:57pm Vitamin B12 1000 MCG (4 sources) Start: 07-10-2018 take 1 tablet by umer th once daily Vitamin B12 1000 MCG 1 tablet Orally Once a day for 90 days Jun, Not-Taking Start: 07-10-2018 take 1 tablet by mouth once da nane Vitamin B12 1000 MCG 1 tablet Orally [...] [Type 2 diabetes mellitus without complications] Onset: 09-17-2023 06-12-2023 Chronic Digestive congenital anomalies (20 sources) [...] deficiency, unspecified] Chronic Open wounds of extremities (6 sources) Injury of foot; 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: [Unspecified open wound, unspecified foot, initial encounter] 02-03-2024 Episodic Other aftercare (20 sources) Long-term current use of insulin; 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: [long-term (current) use of insulin] 06-12-2023 Episodic Other aftercare (20 sources) Post-discharge follow-up; 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: [Encounter for follow-up examination after completed treatment for conditions other than malignant neoplasm] 09-24-2023 Episodic Other aftercare (17 sources) Encounter for follow-up examination after completed treatment for conditions other than malignant neoplasm; 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: [Other follow-up examination] 09-17-2023 Episodic Other circulatory disease (2 sources) Low blood pressure; 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: [Hypotension, unspecified] 05-07-2024 Episodic Other gastrointestinal disorders (20 sources) Dysphagia; 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: [Dysphagia, unspecified] 06-18-2023 Episodic Other gastrointestinal disorders (15 sources) Stricture of esophagus; 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: [Personal history of other diseases of the digestive system] Episodic Other gastrointestinal disorders (1 source) Dysphagia, unspecified Episodic Other gastrointestinal disorders (2 sources) Incontinence of feces; 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: [Full incontinence of feces] 05-07-2024 Episodic Other gastrointestinal disorders (2 sources) Full incontinence of feces; 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: [Full incontinence of feces] 05-07-2024 Episodic Other hematologic conditions (6 sources) Secondary polycythemia; 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] 04-28-2024 Episodic Other hematologic conditions (10 sources) Secondary polycythemia; 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, secondary] Onset: 06-26-2024 04-14-2024 Episodic Other injuries and conditions due [...] Resolved: 01-09-2022 Chronic Other nervous system disorders (18 sources) Walking disability; 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: [Difficulty in walking, [...] Chronic Other nutritional; endocrine; and metabolic disorders (18 sources) Hypomagnesemia; 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: [Hypomagnesemia] 11-10-2023 Chronic Other nutritional; endocrine; and metabolic disorders (20 sources) Hypomagnesemia; 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: [Disorders of magnesium metabolism] Onset: 04-28-2024 11-10-2023 Chronic Other nutritional; endocrine; and metabolic disorders (8 sources) Body mass index (BMI) 32.0-32.9, adult; 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: [Body Mass Index 32.0-32.9, adult] Onset: 06-26-2024 04-28-2024 Chronic Other nutritional; endocrine; and metabolic [...] Asymptomatic menopausal state Episodic Residual codes; unclassified (2 sources) Sleep disorder; 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: [Sleep disorder, unspecified] 05-07-2024 Episodic Residual codes; unclassified (2 sources) Sleep disorder, unspecified; 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: [Sleep disturbance, unspecified] 05-07-2024 Episodic Substance-related disorders (20 sources) Smoker; 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: [Nicotine dependence, unspecified, uncomplicated] Onset: 09-17-2023 Chronic Superficial injury; contusion (6 sources) Blister of foot; 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: [Blister (nonthermal), right foot, subsequent encounter] 01-28-2024 Episodic Thyroid disorders (20 sources) Hypothyroidism; 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: [Hypothyroidism, unspecified] Onset: 04-28-2024 11-10-2023 Chronic Transient cerebral ischemia (18 sources) Transient cerebral ischemia; 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: [Transient cerebral [...] / F17.200(ICD-10) Onset: 05-16-2017 Unclassified (1 source) rn long term care (current) use of aspirin / Z79.82(ICD-10) Onset: 05-16-2017 Unclassified (1 source) long-term (current) use of oral hypoglycemic drugs / [...] Resolved: 01-09-2022 Episodic Other aftercare (13 sources) rn long term care (current) use of insulin; 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: [Long-term (current) use of insulin] Onset: 03-27-2021 Resolved: 01-09-2022 Episodic Other aftercare (6 sources) Taking high risk medication; 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: [Other intermediate manager (current) drug therapy] Onset: 11-13-2023 11-13-2023 Episodic Other aftercare (2 sources) Other intermediate (current) drug therapy; 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: [Other intermediate (current) drug therapy] Onset: 11-13-2023 Episodic Other aftercare (1 source) Encounter for therapeutic drug level monitoring; 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: [Encounter for therapeutic drug level monitoring] Onset: 12-02-2023 Episodic Other circulatory disease (4 sources) Hypotension, unspecified; 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: [Hypotension, unspecified] Onset: 09-25-2023 05-07-2024 Episodic Other connective tissue disease (1 source) [...] in right foot] Onset: 01-06-2024 Episodic Other nervous system disorders (17 sources) Impaired cognition; 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: [Other symptoms and [...] of left upper eyelid] Onset: 05-16-2017 Unclassified (5 sources) Onset: 10-07-2023 Resolved: 06-26-2024 10-07-2023 Results Test Name Value Interpretation Reference Range Facility Alanine aminotransferase [En zymatic activity/volume] in Serum or PlasmaOrdered By: Angelique Russell on 06-26-2024 ALT [Catalytic activity/Vol] Alanine aminotransferase [Enzymatic activity/volume] in Serum or Plasma 7-52 [facility] Albumin [Mass/volume] in Ser um or Plasma by Bromocresol green (BCG) dye binding methoOrdered By: Angelique Russell on 06-26-2024 Albumin BCG dye [Mass/Vol] Albumin [Mass/volume] in Serum or Plasma by Bromocresol green (BCG) dye binding metho 3.5-5.7 [facility] Alkaline phosphatase [Enzyma tic activity/volume] in Serum or PlasmaOrdered By: Angelique Russell on 06-26-2024 ALP [Catalytic activity/Vol] Alkaline phosphatase [Enzymatic activity/volume] in Serum or Plasma 34-104 [facility] Aspartate aminotransferase [ Enzymatic activity/volume] in Serum or PlasmaOrdered By: Angelique Russell on 06-26-2024 AST [Catalytic activity/Vol] Aspartate aminotransferase [Enzymatic activity/volume] in Serum or Plasma 13-39 [facility] B-Type Natriuretic Peptideon 06-26-2024 Natriuretic peptide B (Bld) [Mass/Vol] 54.0 pg/mL Normal 5-100 [facility] Comment on above: Result Comment: PERF ORMED BY:[facility] [place], [place] [id number] MEDICAL DIRECTORLE MACE M.D. Performed By: #### B NURSE UNIT MANAGER ####[facility] [place] [address] [facility] Basophils Auto (Bld) [#/Vol] Ordered By: Nataliya Jane on 06-26-2024 Basophils (Bld) [#/Vol] Automated basophil count 0.0-0.2 [facility] Basophils/100 WBC Auto (Bld) Ordered By: Nataliya Jane on 06-26-2024 Basophils/100 WBC (Bld) Automated basophil % . [facility] Bilirubin.total [Mass/volume ] in Serum or PlasmaOrdered By: Angelique Russell on 06-26-2024 Bilirubin [Mass/Vol] Bilirubin.total [Mass/volume] in Serum or Plasma 0.3-1.0 [facility] CBC W Auto Differential pane l (Bld)on 06-26-2024 Basophils (Bld) [#/Vol] 0 10*3/uL 0.0 - 0.2 10*3/uL [facility] Basophils/100 WBC Manual cnt (Syn fld) 0.5 % . [facility] Eosinophils (Bld) [#/Vol] 0.2 10*3/uL 0.0 - 0.45 10*3/uL [facility] Eosinophils/100 WBC Manual cnt (Syn fld) 2.7 % . [facility] Erythrocyte distribution width (RBC) [Ratio] 14.6 % 11.9 - 15.3 % [facility] Hematocrit (Bld) [Volume fraction] 46.4 % 34.0 - 46.4 % [facility] Hemoglobin (Bld) [Mass/Vol] 15.8 g/dL High 11.8 - 15.4 g/dL [facility] Interpretation and review of laboratory results Abnormal [facility] Lymphocytes (Bld) [#/Vol] 1.6 10*3/uL 1.00 - 4.8 10*3/uL [facility] Lymphocytes/100 WBC Manual cnt (Syn fld) 23.1 % . [facility] MCH (RBC) [Entitic mass] 32.6 pg 24.7 - 34.3 pg [facility] MCHC (RBC) [Mass/Vol] 34.2 g/dL 32.0 - 35.0 g/dL [facility] MCV (RBC) [Entitic vol] 95.3 fL 80 - 100 fL [facility] Monocytes (Bld) [#/Vol] 0.5 10*3/uL 0.0 - 0.8 10*3/uL [facility] Monocytes+Macrophages/1 00 WBC Manual cnt (Syn fld) 6.6 % . [facility] Neutrophils (Bld) [#/Vol] 4.6 10*3/uL 1.8 - 7.7 10*3/uL [facility] Neutrophils/100 WBC Manual cnt (Syn fld) 67.1 % . [facility] NRBC 0.1 /100{WBC} 0 - 0.5 /100{WBC} [facility] Platelet mean volume (Bld) [Entitic vol] 10.4 fL 6.3 - 10.7 fL [facility] Platelets (Bld) [#/Vol] 120 10*3/uL Low 150 - 450 10*3/uL [facility] RBC LM.HPF (Urine sed) [#/Area] 4.86 10*6/uL 3.60 - 5.00 10*6/uL [facility] WBC (Bld) [#/Vol] 6.9 10*3/uL 3.8 - 11.6 10*3/uL [facility] WBC LM.HPF (Urine sed) [#/Area] 6.9 10*3/uL 3.8 - 11.6 10*3/uL [facility] Calcium [Mass/volume] in Ser um or PlasmaOrdered By: Angelique Russell on 06-26-2024 Calcium [Mass/Vol] Calcium [Mass/volume ] in Serum or Plasma 8.6-10.3 [facility] Carbon dioxide, total [Moles /volume] in Serum or PlasmaOrdered By: Angelique Russell on 06-26-2024 CO2 [Moles/Vol] Carbon dioxide, tota l [Moles/volume] in Serum or Plasma 21.0-31.0 [facility] Chloride [Moles/volume] in S elliot or PlasmaOrdered By: Angelique Russell on 06-26-2024 Chloride [Moles/Vol] Chloride [Moles/vol ume] in Serum or Plasma 98-107 [facility] Cholesterol [Mass/volume] in Serum or PlasmaOrdered By: Angelique Russell on 06-26-2024 Cholesterol [Mass/Vol] Cholesterol [Mass/volume] in Serum or Plasma Low 140-200 [facility] Comment on above: Chol less than 200 m g/dl low riskChol 201-239 mg/dl borderline riskChol 240 mg/dl and greater high risk Cholesterol in HDL [Mass/vol ume] in Serum or PlasmaOrdered By: Angelique Russell on 06-26-2024 Cholesterol in HDL [Mass/Vol] Serum or plasma high density lipoprotein (HDL) cholesterol measurement 23-92 [facility] Comment on above: HDL CHOL ATP-III CLA SSIFICATION Cardiovascular RiskHDL > or equal to 60 mg/dL LOWHDL < 40 mg/dL HIGH Cholesterol in LDL Calc [Mas s/Vol]Ordered By: Angelique Russell on 06-26-2024 Cholesterol in LDL [Mass/Vol] Cholesterol in LDL [Mass/volume] in Serum or Plasma by calculation 0-100 [facility] Comment on above: LDL ATP III CLASSIFI CATIONLDL less than 100 mg/dL OptimalLDL 100-129 mg/dL Near or above optimalLDL 130-159 mg/dL Borderline highLDL 160-189 mg/dL HighLDL greater than 189 mg/dL Very high Cholesterol in VLDL Calc [Ma ss/Vol]Ordered By: Angelique Russell on 06-26-2024 Cholesterol in VLDL [Mass/Vol] Cholesterol in VLDL [Mass/volume] in Serum or Plasma by calculation [facility] Complete Blood Count Auto Di ffon 06-26-2024 Basophils (Bld) [#/Vol] 0.0 10*3/uL Normal 0.0-0.2 [facility] Comment on above: Result Comment: PERF ORMED BY:[place] [place] [address] [place] [place], [place] [id number] MEDICAL DIRECTORLE MACE M.D. Performed By: #### C BC ####[place] [id number] [facility] Basophils/100 WBC (Bld) 0.5 % Normal . T kan [facility] Comment on above: Performed By: #### C BC ####[address] Eosinophils (Bld) [#/Vol] 0.2 10*3/uL Normal 0.0-0.45 [facility] Comment on above: Performed By: #### C BC ####[place] [id number] [facility] Eosinophils/100 WBC (Bld) 2.7 % Normal . [facility] Comment on above: Performed By: #### C BC ####[place] [id number] [facility] Erythrocyte distribution width (RBC) [Ratio] 14.6 % Normal 11.9-15.3 [facility] Comment on above: Performed By: #### C BC ####[place] [id number] [facility] Hematocrit (Bld) [Volume fraction] 46.4 % Normal 34.0-46.4 [facility] Comment on above: Performed By: #### C BC ####[place] [id number] [facility] Hemoglobin (Bld) [Mass/Vol] 15.8 g/dL High 11.8-15.4 [facility] Comment on above: Performed By: #### C BC ####[place] [id number] [facility] Lymphocytes (Bld) [#/Vol] 1.6 10*3/uL Normal 1.00-4.8 [facility] Comment on above: Performed By: #### C BC ####[address] Lymphocytes/100 WBC (Bld) 23.1 % Normal . [facility] Comment on above: Performed By: #### C BC ####[address] MCH (RBC) [Entitic mass] 32.6 pg Normal 24.7-34.3 [facility] Comment on above: Performed By: #### C BC ####[address] MCV (RBC) [Entitic vol] 95.3 fL Normal 80-100 [facility] Comment on above: Performed By: #### C BC ####[address] Mean Corpuscular HGB Conc 34.2 g/dL Normal 32.0-35.0 [facility] Comment on above: Performed By: #### C BC ####[address] Monocytes (Bld) [#/Vol] 0.5 10*3/uL Normal 0.0-0.8 [facility] Comment on above: Performed By: #### C BC ####[address] Monocytes/100 WBC (Bld) 6.6 % Normal . [facility] Comment on above: Performed By: #### C BC ####[address] Neutrophils (Bld) [#/Vol] 4.6 10*3/uL Normal 1.8-7.7 [facility] Comment on above: Performed By: #### C BC ####[address] Neutrophils/100 WBC (Bld) 67.1 % Normal . [facility] Comment on above: Performed By: #### C BC ####[address] NRBC% 0.1 /100{WBC} Normal 0-0.5 [facility] Comment on above: Performed By: #### C BC ####[place] [id number] [facility] Platelet mean volume (Bld) [Entitic vol] 10.4 fL Normal 6.3-10.7 [facility] Comment on above: Performed By: #### C BC ####[place] [id number] [facility] Platelets (Bld) [#/Vol] 120 10*3/uL Low 150-450 [facility] Comment on above: Performed By: #### C BC ####[place] [id number] [facility] RBC (Bld) [#/Vol] 4.86 10*6/uL Normal 3.60-5.00 [facility] Comment on above: Performed By: #### C BC ####[place] [id number] [facility] WBC (Bld) [#/Vol] 6.9 10*3/uL Normal 3.8-11.6 [facility] Comment on above: Performed By: #### C BC ####[place] [id number] [facility] Comprehensive Metabolic Pane juan 06-26-2024 Albumin [Mass/Vol] 3.8 g/dL Normal 3.5-5.7 [facility] Comment on above: Performed By: #### C MP ####[place] [id number] [facility] Albumin/Globulin [Mass ratio] 1.5 {ratio} Normal [facility] Comment on above: Performed By: #### C MP ####[place] [id number] [facility] ALP [Catalytic activity/Vol] 92 U/L Normal 34-104 [facility] Comment on above: Result Comment: PERF ORMED BY:[address] [place], [place] [phone] MEDICAL DIRECTORMOANNA [facility]QUES [facility] M EL-FAKHARANY M.D. Performed By: #### C MP ####[place] [id number] [facility] ALT [Catalytic activity/Vol] 23 U/L Normal 7-52 [facility] Comment on above: Performed By: #### C MP ####[place] [id number] [facility] Anion gap [Moles/Vol] 12.2 mmol/L Normal 6.0-15.0 [facility] Comment on above: Performed By: #### C MP ####[place] [id number] [facility] AST [Catalytic activity/Vol] 36 U/L Normal 13-39 [facility] Comment on above: Performed By: #### C MP ####[place] [id number] [facility] Bilirubin [Mass/Vol] 0.4 mg/dL Normal 0.3-1.0 [facility] Comment on above: Performed By: #### C MP ####[place] [id number] [facility] Calcium [Mass/Vol] 9.4 mg/dL Normal 8.6-10.3 [facility] Comment on above: Performed By: #### C MP ####[place] [id number] [facility] Chloride [Moles/Vol] 103 mmol/L Normal 98-107 [facility] Comment on above: Performed By: #### C MP ####[place] [id number] [facility] CO2 [Moles/Vol] 29.0 mmol/L Normal 21.0-31.0 The [facility] Comment on above: Performed By: #### C MP ####[place] [id number] [facility] Creatinine [Mass/Vol] 0.93 mg/dL Normal 0.60-1.20 [facility] Comment on above: Performed By: #### C MP ####[place] [id number] [facility] GFR/1.73 sq M.predicted MDRD (S/P/Bld) [Vol rate/Area] mL/min/{1.73_m2} Normal [facility] Comment on above: Performed By: #### C MP ####[place] [id number] [facility] Globulin (S) [Mass/Vol] 2.6 g/dL Normal T he [facility] Comment on above: Performed By: #### C MP ####[address] Glucose [Mass/Vol] 256 mg/dL High 70-100 [facility] Comment on above: Result Comment: [place] Glucose Reference Range is dependent on time and content of last meal. Glucose of more than 200 mg/dL in a nonstressed, ambulatory subject supports the diagnosis of Diabetes Mellitus. ADA recommended reference range Performed By: #### C MP ####[address] Potassium [Moles/Vol] 4.2 mmol/L Normal 3.5-5.1 [facility] Comment on above: Performed By: #### C MP ####[address] Protein [Mass/Vol] 6.4 g/dL Normal 6.4-8.9 [facility] Comment on above: Performed By: #### C MP ####[address] Sodium [Moles/Vol] 140 mmol/L Normal 136-145 [facility] Comment on above: Performed By: #### C MP ####[address] Urea nitrogen [Mass/Vol] 9 mg/dL Normal 7-25 [facility] Comment on above: Performed By: #### C MP ####[address] Creatinine [Mass/volume] in Serum or PlasmaOrdered By: Angelique Russell on 06-26-2024 Creatinine [Mass/Vol] Creatinine [Mass/v olume] in Serum or Plasma 0.60-1.20 [facility] Creatinine [Mass/volume] in UrineOrdered By: Angelique Russell on 06-26-2024 Creatinine (U) [Mass/Vol] Creatinine [Mass/volume] in Urine [facility] Comment on above: No reference range e stablished ECG 12 Leadon 06-26-2024 Normal sinus rhythm [facility] Work Phone: Eosinophils Auto (Bld) [#/Vo l]Ordered By: Nataliya Jane on 06-26-2024 Eosinophils (Bld) [#/Vol] Automated eosinophil count 0.0-0.45 [facility] Eosinophils/100 WBC Auto (Bl d)Ordered By: Nataliya Jane on 06-26-2024 Eosinophils/100 WBC (Bld) Automated eosinophil % . [facility] Erythrocyte distribution wid th Auto (RBC) [Ratio]Ordered By: Nataliya Jane on 06-26-2024 Erythrocyte distribution width (RBC) [Ratio] Erythrocyte distribution width [Ratio] by Automated count 11.9-15.3 [facility] Globulin Calc (S) [Mass/Vol] Ordered By: Angelique Russell on 06-26-2024 Globulin (S) [Mass/Vol] Serum globulin measurement by calculation (mass/volume) [facility] Glucose [Mass/volume] in Ser um or PlasmaOrdered By: Angelique Russell on 06-26-2024 Glucose [Mass/Vol] Glucose [Mass/volume ] in Serum or Plasma High 70-100 [facility] Comment on above: ADA recommended refe rence rangeRandom Glucose Reference Range is dependent on time and content of last meal. Glucose of more than 200 mg/dL in a nonstressed, ambulatory subject supports the diagnosis of Diabetes Mellitus. Hematocrit Auto (Bld) [Volum e fraction]Ordered By: Nataliya Jane on 06-26-2024 Hematocrit (Bld) [Volume fraction] Hematocrit [Volume Fraction] of Blood by Automated count 34.0-46.4 [facility] Hemoglobin [Mass/volume] in BloodOrdered By: Nataliya Jane on 06-26-2024 Hemoglobin (Bld) [Mass/Vol] Hemoglobin [Mass/volume] in Blood High 11.8-15.4 [facility] Leukocytes [#/volume] correc deepika for nucleated erythrocytes in Blood by Automated counOrdered By: Nataliya Jane on 06-26-2024 WBC corrected for nucl RBC Auto (Bld) [#/Vol] Leukocytes [#/volume] corrected for nucleated erythrocytes in Blood by Automated coun 3.8-11.6 [facility] Lipid Panelon 06-26-2024 Cholesterol [Mass/Vol] 93 mg/dL Low 140-200 Th e [facility] Comment on above: Result Comment: Chol less than 200 mg/dl low risk Chol 201-239 mg/dl borderline risk Chol 240 mg/dl and greater high risk Performed By: #### T SH3 wRFLX, LIPID ####[place] [address] Cholesterol in HDL [Mass/Vol] 27 mg/dL Normal 23-92 [facility] Comment on above: Result Comment: HDL CHOL ATP-III CLASSIFICATION Cardiovascular Risk HDL > or equal to 60 mg/dL LOW HDL < 40 mg/dL HIGH Performed By: #### T SH3 wRFLX, LIPID ####[place] [address] [place] [id number] [facility] Cholesterol.total/Monica sterol in HDL [Mass ratio] 3.4 {ratio} Normal <5.0 [facility] Comment on above: Performed By: #### T SH3 wRFLX, LIPID ####[place] [id number] [facility] LDL Cholesterol,Calculated 34 mg/dL Normal 0-100 The [facility] Comment on above: Result Comment: LDL ATP III CLASSIFICATION LDL less than 100 mg/dL Optimal LDL 100-129 mg/dL Near or above optimal LDL 130-159 mg/dL Borderline high LDL 160-189 mg/dL High LDL greater than 189 mg/dL Very high Performed By: #### T SH3 wRFLX, LIPID ####[place] [address] [place] [id number] [facility] Triglyceride w/Reflex 162 mg/dL High 0-149 [facility] Comment on above: Result Comment: TRIG ATP III CLASSIFICATION TRIG less than 150 mg/dL Normal TRIG 150-199 mg/dL Borderline high TRIG 200-500 mg/dL High TRIG greater than 500 mg/dL Very high Standard traceable to the Center for Disease Conrtrol and Prevention (CDC) test method. Performed By: #### T SH3 wRFLX, LIPID ####[facility] [place] [address] [facility] VLDL CHOLESTEROL 32 mg/dL Normal [facility] Comment on above: Performed By: #### T SH3 wRFLX, LIPID ####[facility] [place] [address] [facility] Lymphocytes Auto (Bld) [#/Vo l]Ordered By: Nataliya Jane on 06-26-2024 Lymphocytes (Bld) [#/Vol] Lymphocytes [#/volume] in Blood by Automated count 1.00-4.8 [facility] Lymphocytes/100 WBC Auto (Bl d)Ordered By: Nataliya Jane on 06-26-2024 Lymphocytes/100 WBC (Bld) Lymphocytes/100 leukocytes in Blood by Automated count . [facility] MCH Auto (RBC) [Entitic mass ]Ordered By: Nataliya Jane on 06-26-2024 MCH (RBC) [Entitic mass] MCH [Entitic mass] by Automated count 24.7-34.3 [facility] MCHC Auto (RBC) [Mass/Vol]Or dered By: Nataliya Jane on 06-26-2024 MCHC (RBC) [Mass/Vol] MCHC [Mass/volume] by Automated count 32.0-35.0 [facility] MCV Auto (RBC) [Entitic vol] Ordered By: Nataliya Jane on 06-26-2024 MCV (RBC) [Entitic vol] MCV [Entitic vol ume] by Automated count 80-100 [facility] MicroAlb Creat Ratio,Uon Albumin DL <= 20 mg/L (U) [Mass/Vol] mg/dL Normal 0.0-1.8 [facility] Comment on above: Performed By: #### U RMACRERAT ####[facility] [place] [id number] [facility] Creatinine, Urine (Random) 65.00 mg/dL Normal [facility] Comment on above: Result Comment: No r eference range established Performed By: #### U RMACRERAT ####[place] [address] [place] [id number] [facility] Microalbumin/Creatinine Ratio Not performed Normal 0.0-30.0 [facility] Comment on above: Result Comment: PERF ORMED BY:[address] [place], [place] [phone] MEDICAL DIRECTORLE MACE M.D. Performed By: #### U RMACRERAT ####[place] [address] [place] [address] [facility] Microalbumin [Mass/volume] i n UrineOrdered By: Angelique Russell on 06-26-2024 Albumin DL <= 20 mg/L (U) [Mass/Vol] Microalbumin [Mass/volume] in Urine 0.0-1.8 [facility] Monocytes Auto (Bld) [#/Vol] Ordered By: Nataliya Jane on 06-26-2024 Monocytes (Bld) [#/Vol] Automated blood monocyte count 0.0-0.8 [facility] Monocytes/100 WBC Auto (Bld) Ordered By: Nataliya Jane on 06-26-2024 Monocytes/100 WBC (Bld) Automated monocyte % . [facility] Natriuretic peptide B [Mass/ Vol]Ordered By: Roland Faust on 06-26-2024 Natriuretic peptide B (Bld) [Mass/Vol] BNP ser/plas 5-100 [facility] Neutrophils Auto (Bld) [#/Vo l]Ordered By: Nataliya Jane on 06-26-2024 Neutrophils (Bld) [#/Vol] Neutrophils [#/volume] in Blood by Automated count 1.8-7.7 [facility] Neutrophils/100 WBC Auto (Bl d)Ordered By: Nataliya Jane on 06-26-2024 Neutrophils/100 WBC (Bld) Automated neutrophil % . [facility] No Panel InformationOrdered By: Angelique Russell on 06-26-2024 Estimated GFR (CKD-EPI) > 60.0 mL/Min [facility] Creatinine Clearance (Chem N/A [facility] Nucleated erythrocytes [Pres ence] in Blood by Automated countOrdered By: Nataliya Jane on 06-26-2024 Nucleated RBC Auto Ql (Bld) Nucleated erythrocytes [Presence] in Blood by Automated count 0-0.5 [facility] Platelet mean volume Auto (B ld) [Entitic vol]Ordered By: Nataliya Jane on 06-26-2024 Platelet mean volume (Bld) [Entitic vol] Platelet mean volume [Entitic volume] in Blood by Automated count 6.3-10.7 [facility] Platelets Auto (Bld) [#/Vol] Ordered By: Nataliya Jane on 06-26-2024 Platelets (Bld) [#/Vol] Platelets [#/vol ume] in Blood by Automated count Low 150-450 [facility] Potassium [Moles/volume] in Serum or PlasmaOrdered By: Angelique Russell on 06-26-2024 Potassium [Moles/Vol] Potassium [Moles/v olume] in Serum or Plasma 3.5-5.1 [facility] Protein [Mass/volume] in Ser um or PlasmaOrdered By: Angelique Russell on 06-26-2024 Protein [Mass/Vol] Protein [Mass/volume ] in Serum or Plasma 6.4-8.9 [facility] RBC Auto (Bld) [#/Vol]Ordere d By: Nataliya Jane on 06-26-2024 RBC (Bld) [#/Vol] Erythrocytes [#/volu me] in Blood by Automated count 3.60-5.00 [facility] Serum or plasma albumin/glob ulin mass ratioOrdered By: Angelique Russell on 06-26-2024 Albumin/Globulin [Mass ratio] Serum or plasma albumin/globulin mass ratio [facility] Serum or plasma anion gap de terminationOrdered By: Angelique Russell on 06-26-2024 Anion gap [Moles/Vol] Serum or plasma an ion gap determination 6.0-15.0 [facility] Serum or plasma total choles terol/high density lipoprotein (HDL) cholesterol mass ratOrdered By: Angelique Russell on 06-26-2024 Cholesterol.total/Monica sterol in HDL [Mass ratio] Serum or plasma total cholesterol/high density lipoprotein (HDL) cholesterol mass rat <5.0 [facility] Sodium [Moles/volume] in Ser um or PlasmaOrdered By: Tondra Yvonne on 06-26-2024 Sodium [Moles/Vol] Sodium [Moles/volume ] in Serum or Plasma 136-145 [facility] Thyroid Stim Hormone w/Rflxo n 06-26-2024 Thyroid Stim Hormone w/Rflx 1.45 u[iU]/mL Normal 0.45-5.33 [facility] Comment on above: Result Comment: PERF ORMED BY:[facility] [place], [place] [phone] MEDICAL DIRECTORLE MACE M.D. Performed By: #### T SH3 wRFLX, LIPID ####[facility] [place] [address] [facility] Thyrotropin [Units/volume] i n Serum or PlasmaOrdered By: Angelique Russell on 06-26-2024 TSH Qn Thyrotropin [Units/volume] in Serum or Plasma 0.45-5.33 [facility] Triglyceride [Mass/volume] i n Serum or PlasmaOrdered By: Barbera Yvonne on 06-26-2024 Triglyceride [Mass/Vol] Triglyceride [Mass/volume] in Serum or Plasma High 0-149 [facility] Comment on above: TRIG ATP III CLASSIF ICATIONTRIG less than 150 mg/dL NormalTRIG 150-199 mg/dL Borderline highTRIG 200-500 mg/dL High TRIG greater than 500 mg/dL Very highStandard traceable to the Center for Disease Conrtrol and Prevention (CDC) test method. Urea nitrogen [Mass/volume] in Serum or PlasmaOrdered By: Angelique Russell on 06-26-2024 Urea nitrogen [Mass/Vol] Urea nitrogen [Mass/volume] in Serum or Plasma 7-25 [facility] Urine microalbumin/creatinin e mass ratioOrdered By: Aneglique Russell on 06-26-2024 Albumin/Creatinine DL <= 20 mg/L (U) [Mass ratio] Urine microalbumin/creatinine mass ratio [facility] Comment on above: Test not performed WBC Auto (Bld) [#/Vol]Ordere d By: Nataliya Jane on 06-26-2024 WBC (Bld) [#/Vol] Leukocytes [#/volume ] in Blood by Automated count 3.8-11.6 [facility] MR head/brain wo/w conon MR head/brain wo/w con Normal Th e [facility] Magnetic resonance imaging r eportOrdered By: Eugenio Lazo on 05-25-2024 Study report [facility] [place] [address] [place] [address] MRI Report Signed Patient: Taye Gay MR#: [id number] : 1955 Acct:[id number] Age/Sex: 68 / F ADM Date: 5 Loc: MR Room: Type: [facility] Attending Dr: Sandra Keita DO Copies to: [...] Eugenio Lazo M.D.05/25/2024 7:59 PM Dictation Location: [facility]20 Transcribed By: MAY 05/25/241958 Dictated By: Eugenio Lazo DO 05/25/241953 Signed By: 05/25/241958 [facility] Alanine aminotransferase [En zymatic activity/volume] in Serum or PlasmaOrdered By: Priscilla Lang on 04-30-2024 ALT [Catalytic activity/Vol] Alanine aminotransferase [Enzymatic activity/volume] in Serum or Plasma 7-52 [facility] Albumin [Mass/volume] in Ser um or Plasma by Bromocresol green (BCG) dye binding methoOrdered By: Priscilla Lagn on 04-30-2024 Albumin BCG dye [Mass/Vol] Albumin [Mass/volume] in Serum or Plasma by Bromocresol green (BCG) dye binding metho 3.5-5.7 [facility] Alkaline phosphatase [Enzyma tic activity/volume] in Serum or PlasmaOrdered By: Priscilla Lang on 04-30-2024 ALP [Catalytic activity/Vol] Alkaline phosphatase [Enzymatic activity/volume] in Serum or Plasma 34-104 [facility] Aspartate aminotransferase [ Enzymatic activity/volume] in Serum or PlasmaOrdered By: Priscilla Lang on 04-30-2024 AST [Catalytic activity/Vol] Aspartate aminotransferase [Enzymatic activity/volume] in Serum or Plasma 13-39 [facility] Basophils Auto (Bld) [#/Vol] Ordered By: Priscilla Lang on 04-30-2024 Basophils (Bld) [#/Vol] Automated basophil count 0.0-0.2 [facility] Basophils/100 WBC Auto (Bld) Ordered By: Priscilla Lang on 04-30-2024 Basophils/100 WBC (Bld) Automated basophil % . [facility] Bilirubin.total [Mass/volume ] in Serum or PlasmaOrdered By: Priscilla Lang on 04-30-2024 Bilirubin [Mass/Vol] Bilirubin.total [Mass/volume] in Serum or Plasma 0.3-1.0 [facility] Calcium [Mass/volume] in Ser um or PlasmaOrdered By: Priscilla Lang on 04-30-2024 Calcium [Mass/Vol] Calcium [Mass/volume ] in Serum or Plasma 8.6-10.3 [facility] Carbon dioxide, total [Moles /volume] in Serum or PlasmaOrdered By: Priscilla Lang on 04-30-2024 CO2 [Moles/Vol] Carbon dioxide, tota l [Moles/volume] in Serum or Plasma 21.0-31.0 [facility] Chloride [Moles/volume] in S elliot or PlasmaOrdered By: Priscilla Lang on 04-30-2024 Chloride [Moles/Vol] Chloride [Moles/vol ume] in Serum or Plasma 98-107 [facility] Complete Blood Count Auto Di ffon 04-30-2024 Basophils (Bld) [#/Vol] 0.0 10*3/uL Normal 0.0-0.2 [facility] Comment on above: Result Comment: PERF ORMED BY:[address] [place], [place] [phone] MEDICAL DIRECTORLE MACE M.D. Performed By: #### C MP, CBC, MG, PHOS ####[address] Basophils/100 WBC (Bld) 0.4 % Normal . T [facility] Comment on above: Performed By: #### C MP, CBC, MG, PHOS ####[address] Eosinophils (Bld) [#/Vol] 0.2 10*3/uL Normal 0.0-0.45 [facility] Comment on above: Performed By: #### C MP, CBC, MG, PHOS ####[address] Eosinophils/100 WBC (Bld) 2.9 % Normal . [facility] Comment on above: Performed By: #### C MP, CBC, MG, PHOS ####[address] Erythrocyte distribution width (RBC) [Ratio] 15.4 % High 11.9-15.3 [facility] Comment on above: Performed By: #### C MP, CBC, MG, PHOS ####[address] Hematocrit (Bld) [Volume fraction] 44.3 % Normal 34.0-46.4 [facility] Comment on above: Performed By: #### C MP, CBC, MG, PHOS ####[address] Hemoglobin (Bld) [Mass/Vol] 14.7 g/dL Normal 11.8-15.4 [facility] Comment on above: Performed By: #### C MP, CBC, MG, PHOS ####[address] Lymphocytes (Bld) [#/Vol] 1.8 10*3/uL Normal 1.00-4.8 [facility] Comment on above: Performed By: #### C MP, CBC, MG, PHOS ####[address] Lymphocytes/100 WBC (Bld) 24.9 % Normal . [facility] Comment on above: Performed By: #### C MP, CBC, MG, PHOS ####[address] MCH (RBC) [Entitic mass] 31.4 pg Normal 24.7-34.3 [facility] Comment on above: Performed By: #### C MP, CBC, MG, PHOS ####[address] MCV (RBC) [Entitic vol] 94.4 fL Normal 80-100 [facility] Comment on above: Performed By: #### C MP, CBC, MG, PHOS ####[address] Mean Corpuscular HGB Conc 33.3 g/dL Normal 32.0-35.0 [facility] Comment on above: Performed By: #### C MP, CBC, MG, PHOS ####[address] Monocytes (Bld) [#/Vol] 0.6 10*3/uL Normal 0.0-0.8 [facility] Comment on above: Performed By: #### C MP, CBC, MG, PHOS ####[address] Monocytes/100 WBC (Bld) 8.3 % Normal . T [facility] Comment on above: Performed By: #### C MP, CBC, MG, PHOS ####[address] Neutrophils (Bld) [#/Vol] 4.6 10*3/uL Normal 1.8-7.7 [facility] Comment on above: Performed By: #### C MP, CBC, MG, PHOS ####[address] Neutrophils/100 WBC (Bld) 63.5 % Normal . [facility] Comment on above: Performed By: #### C MP, CBC, MG, PHOS ####[address] NRBC% 0.0 /100{WBC} Normal 0-0.5 [facility] Comment on above: Performed By: #### C MP, CBC, MG, PHOS ####[address] Platelet mean volume (Bld) [Entitic vol] 9.5 fL Normal 6.3-10.[address] [facility] Comment on above: Performed By: #### C MP, CBC, MG, PHOS ####[address] Platelets (Bld) [#/Vol] 119 10*3/uL Low 150-450 [facility] Comment on above: Performed By: #### C MP, CBC, MG, PHOS ####[address] RBC (Bld) [#/Vol] 4.70 10*6/uL Normal 3.60-5.00 [facility] Comment on above: Performed By: #### C MP, CBC, MG, PHOS ####[address] WBC (Bld) [#/Vol] 7.3 10*3/uL Normal 3.8-11.6 [facility] Comment on above: Performed By: #### C MP, CBC, MG, PHOS ####[address] Comprehensive Metabolic Pane juan 04-30-2024 Albumin [Mass/Vol] 3.5 g/dL Normal 3.5-5.7 [facility] Comment on above: Performed By: #### C MP, CBC, MG, PHOS ####[address] Albumin/Globulin [Mass ratio] 1.2 {ratio} Normal [facility] Comment on above: Performed By: #### C MP, CBC, MG, PHOS ####[address] ALP [Catalytic activity/Vol] 85 U/L Normal 34-104 [facility] Comment on above: Performed By: #### C MP, CBC, MG, PHOS ####[address] ALT [Catalytic activity/Vol] 16 U/L Normal 7-52 [facility] Comment on above: Performed By: #### C MP, CBC, MG, PHOS ####[address] Anion gap [Moles/Vol] 10.9 mmol/L Normal 6.0-15.0 [facility] e [facility] Comment on above: Performed By: #### C MP, CBC, MG, PHOS ####[address] AST [Catalytic activity/Vol] 23 U/L Normal 13-39 [facility] Comment on above: Performed By: #### C MP, CBC, MG, PHOS ####[address] Bilirubin [Mass/Vol] 0.5 mg/dL Normal 0.3-1.0 [facility] Comment on above: Performed By: #### C MP, CBC, MG, PHOS ####[address] Calcium [Mass/Vol] 9.3 mg/dL Normal 8.6-10.3 [facility] Comment on above: Performed By: #### C MP, CBC, MG, PHOS ####[address] Chloride [Moles/Vol] 106 mmol/L Normal 98-107 [facility] Comment on above: Performed By: #### C MP, CBC, MG, PHOS ####[address] CO2 [Moles/Vol] 26.9 mmol/L Normal 21.0-31.0 [facility] Comment on above: Performed By: #### C MP, CBC, MG, PHOS ####[address] Creatinine [Mass/Vol] 0.80 mg/dL Normal 0.60-1.20 [facility] Comment on above: Performed By: #### C MP, CBC, MG, PHOS ####[address] Creatinine Clr Calc Pharmacy 82.38 Normal [facility] Comment on above: Performed By: #### C MP, CBC, MG, PHOS ####[address] GFR/1.73 sq M.predicted MDRD (S/P/Bld) [Vol rate/Area] mL/min/{1.73_m2} Normal [facility] Comment on above: Performed By: #### C MP, CBC, MG, PHOS ####[address] Globulin (S) [Mass/Vol] 2.9 g/dL Normal T [facility] Comment on above: Performed By: #### C MP, CBC, MG, PHOS ####[place] [address] Glucose [Mass/Vol] 130 mg/dL High 70-100 [facility] Comment on above: Result Comment: [place] Glucose Reference Range is dependent on time and content of last meal. Glucose of more than 200 mg/dL in a nonstressed, ambulatory subject supports the diagnosis of Diabetes Mellitus. ADA recommended reference range Performed By: #### C MP, CBC, MG, PHOS ####[place] [address] [place] [id number] [facility] Potassium [Moles/Vol] 3.8 mmol/L Normal 3.5-5.1 [facility] Comment on above: Performed By: #### C MP, CBC, MG, PHOS ####[address] Protein [Mass/Vol] 6.4 g/dL Normal 6.4-8.9 [facility] Comment on above: Performed By: #### C MP, CBC, MG, PHOS ####[place] [id number] [facility] Sodium [Moles/Vol] 140 mmol/L Normal 136-145 [facility] Comment on above: Performed By: #### C MP, CBC, MG, PHOS ####[place] [id number] [facility] Urea nitrogen [Mass/Vol] 9 mg/dL Normal 7-25 [facility] Comment on above: Performed By: #### C MP, CBC, MG, PHOS ####[place] [id number] [place] Creatinine [Mass/volume] in Serum or PlasmaOrdered By: Priscilla Lang on 04-30-2024 Creatinine [Mass/Vol] Creatinine [Mass/v olume] in Serum or Plasma 0.60-1.20 [facility] Eosinophils Auto (Bld) [#/Vo l]Ordered By: Priscilla Lang on 04-30-2024 Eosinophils (Bld) [#/Vol] Automated eosinophil count 0.0-0.45 [facility] Eosinophils/100 WBC Auto (Bl d)Ordered By: Priscilla Herorenny on 04-30-2024 Eosinophils/100 WBC (Bld) Automated eosinophil % . [facility] Erythrocyte distribution wid th Auto (RBC) [Ratio]Ordered By: Priscilla Lang on 04-30-2024 Erythrocyte distribution width (RBC) [Ratio] Erythrocyte distribution width [Ratio] by Automated count High 11.9-15.3 [facility] Globulin Calc (S) [Mass/Vol] Ordered By: Priscilla Lang on 04-30-2024 Globulin (S) [Mass/Vol] Serum globulin measurement by calculation (mass/volume) [facility] Glucose Glucometer (BldC) [M ass/Vol]Ordered By: Priscilla Lang on 04-30-2024 Glucose [Mass/Vol] Capillary blood gluc ose measurement by glucometer (mass/volume) [facility] Comment on above: Random Glucose Refer ence Range is dependent on time and content of last meal. Glucose of more than 200 mg/dL in a nonstressed, ambulatory subject supports the diagnosis of Diabetes Mellitus. Glucose Poct Glucometerson 0 04-30-2024 Glucose [Mass/Vol] 154 mg/dL Normal [facility] Comment on above: Result Comment: [facility] Glucose Reference Range is dependent on time and content of last meal. Glucose of more than 200 mg/dL in a nonstressed, ambulatory subject supports the diagnosis of Diabetes Mellitus.PERFORMED BY:[place] [address] [address] [place], [place] [phone] MEDICAL DIRECTORLE MACE M.D. Performed By: #### G LULS ####Point of Care testing, Glucose [Mass/Vol] 134 mg/dL Normal [facility] Comment on above: Result Comment: [facility] Glucose Reference Range is dependent on time and content of last meal. Glucose of more than 200 mg/dL in a nonstressed, ambulatory subject supports the diagnosis of Diabetes Mellitus.PERFORMED BY:[place] [address] [address] [place], [place] [phone] MEDICAL DIRECTORLE MACE M.D. Performed By: #### G HERNÁN ####Point of Care testing, Glucose [Mass/volume] in Ser um or PlasmaOrdered By: Priscilla Lang on 04-30-2024 Glucose [Mass/Vol] Glucose [Mass/volume ] in Serum or Plasma High 70-100 [facility] Comment on above: ADA recommended refe rence rangeRandom Glucose Reference Range is dependent on time and content of last meal. Glucose of more than 200 mg/dL in a nonstressed, ambulatory subject supports the diagnosis of Diabetes Mellitus. Hematocrit Auto (Bld) [Volum e fraction]Ordered By: Priscilla Lang on 04-30-2024 Hematocrit (Bld) [Volume fraction] Hematocrit [Volume Fraction] of Blood by Automated count 34.0-46.4 [facility] Hemoglobin [Mass/volume] in BloodOrdered By: Priscilla Lang on 04-30-2024 Hemoglobin (Bld) [Mass/Vol] Hemoglobin [Mass/volume] in Blood 11.8-15.4 [facility] Leukocytes [#/volume] correc deepika for nucleated erythrocytes in Blood by Automated counOrdered By: Priscilla Lang on 04-30-2024 WBC corrected for nucl RBC Auto (Bld) [#/Vol] Leukocytes [#/volume] corrected for nucleated erythrocytes in Blood by Automated coun 3.8-11.6 [facility] Lymphocytes Auto (Bld) [#/Vo l]Ordered By: Priscilla Lang on 04-30-2024 Lymphocytes (Bld) [#/Vol] Lymphocytes [#/volume] in Blood by Automated count 1.00-4.8 [facility] Lymphocytes/100 WBC Auto (Bl d)Ordered By: Priscilla Lang on 04-30-2024 Lymphocytes/100 WBC (Bld) Lymphocytes/100 leukocytes in Blood by Automated count . [facility] MCH Auto (RBC) [Entitic mass ]Ordered By: Priscilla Lang on 04-30-2024 MCH (RBC) [Entitic mass] MCH [Entitic mass] by Automated count 24.7-34.3 [facility] MCHC Auto (RBC) [Mass/Vol]Or dered By: Prisclila Lang on 04-30-2024 MCHC (RBC) [Mass/Vol] MCHC [Mass/volume] by Automated count 32.0-35.0 [facility] MCV Auto (RBC) [Entitic vol] Ordered By: Priscilla Lang on 04-30-2024 MCV (RBC) [Entitic vol] MCV [Entitic vol ume] by Automated count 80-100 [facility] Magnesiumon 04-30-2024 Magnesium [Mass/Vol] 1.7 mg/dL Low 1.9-2.7 [facility] Comment on above: Result Comment: PERF ORMED BY:[facility] [place], [place] [phone] MEDICAL DIRECTORLE MACE M.D. Performed By: #### C MP, CBC, MG, PHOS ####[facility] [place] [id number] [facility] Magnesium [Mass/volume] in S elliot or PlasmaOrdered By: Priscilla Lang on 04-30-2024 Magnesium [Mass/Vol] Magnesium [Mass/vol ume] in Serum or Plasma Low 1.9-2.7 [facility] Monocytes Auto (Bld) [#/Vol] Ordered By: Priscilla Lang on 04-30-2024 Monocytes (Bld) [#/Vol] Automated blood monocyte count 0.0-0.8 [facility] Monocytes/100 WBC Auto (Bld) Ordered By: Priscilla Lang on 04-30-2024 Monocytes/100 WBC (Bld) Automated monocyte % . [facility] Neutrophils Auto (Bld) [#/Vo l]Ordered By: Priscilla Lang on 04-30-2024 Neutrophils (Bld) [#/Vol] Neutrophils [#/volume] in Blood by Automated count 1.8-7.7 [facility] Neutrophils/100 WBC Auto (Bl d)Ordered By: Priscilla Lang on 04-30-2024 Neutrophils/100 WBC (Bld) Automated neutrophil % . [facility] No Panel InformationOrdered By: Priscilla Lang on 04-30-2024 Estimated GFR (CKD-EPI) > 60.0 mL/Min [facility] Creatinine Clearance (Chem 82.38 [facility] Nucleated erythrocytes [Pres ence] in Blood by Automated countOrdered By: Priscilla Lang on 04-30-2024 Nucleated RBC Auto Ql (Bld) Nucleated erythrocytes [Presence] in Blood by Automated count 0-0.5 [facility] Phosphate [Mass/volume] in S elliot or PlasmaOrdered By: Priscilla Lang on 04-30-2024 Phosphate [Mass/Vol] Phosphate [Mass/vol ume] in Serum or Plasma 2.5-4.5 [facility] Phosphoruson 04-30-2024 Phosphate [Mass/Vol] 2.9 mg/dL Normal 2.5-4.5 [facility] Comment on above: Performed By: #### C MP, CBC, MG, PHOS ####[facility] [id number] [place] [id number] [facility] Platelet mean volume Auto (B ld) [Entitic vol]Ordered By: Priscilla Lang on 04-30-2024 Platelet mean volume (Bld) [Entitic vol] Platelet mean volume [Entitic volume] in Blood by Automated count 6.3-10.7 [facility] Platelets Auto (Bld) [#/Vol] Ordered By: Priscilla Lang on 04-30-2024 Platelets (Bld) [#/Vol] Platelets [#/vol ume] in Blood by Automated count Low 150-450 [facility] Potassium [Moles/volume] in Serum or PlasmaOrdered By: Priscilla Lang on 04-30-2024 Potassium [Moles/Vol] Potassium [Moles/v olume] in Serum or Plasma 3.5-5.1 [facility] Protein [Mass/volume] in Ser um or PlasmaOrdered By: Priscilla Lang on 04-30-2024 Protein [Mass/Vol] Protein [Mass/volume ] in Serum or Plasma 6.4-8.9 [facility] RBC Auto (Bld) [#/Vol]Ordere d By: Priscilla Lang on 04-30-2024 RBC (Bld) [#/Vol] Erythrocytes [#/volu me] in Blood by Automated count 3.60-5.00 [facility] Serum or plasma albumin/glob ulin mass ratioOrdered By: Priscilla Lang on 04-30-2024 Albumin/Globulin [Mass ratio] Serum or plasma albumin/globulin mass ratio [facility] Serum or plasma anion gap de terminationOrdered By: Priscilla Lang on 04-30-2024 Anion gap [Moles/Vol] Serum or plasma an ion gap determination 6.0-15.0 [facility] Sodium [Moles/volume] in Ser um or PlasmaOrdered By: Priscilla Lang on 04-30-2024 Sodium [Moles/Vol] Sodium [Moles/volume ] in Serum or Plasma 136-145 [facility] Urea nitrogen [Mass/volume] in Serum or PlasmaOrdered By: Priscilla Lang on 04-30-2024 Urea nitrogen [Mass/Vol] Urea nitrogen [Mass/volume] in Serum or Plasma 7-25 [facility] WBC Auto (Bld) [#/Vol]Ordere d By: Priscilla Lang on 04-30-2024 WBC (Bld) [#/Vol] Leukocytes [#/volume ] in Blood by Automated count 3.8-11.6 [facility] Amphetamine Screen Ql (U)Ord ered By: Priscilla Lang on 04-29-2024 Amphetamines Ql (U) Amphetamines screen Negativ e [facility] Barbiturates [Presence] in U rine by Screen methodOrdered By: Priscilla Lang on 04-29-2024 Barbiturates Screen Ql (U) Barbiturates [Presence] in Urine by Screen method Negative [facility] Basic Metabolic Panelon Anion gap [Moles/Vol] 11.3 mmol/L Normal 6.0-15.0 Th e [facility] Comment on above: Order Comment: FASTI NG N Performed By: #### B MP, LIPID ####[facility] [id number] [place] [address] [facility] Calcium [Mass/Vol] 8.9 mg/dL Normal 8.6-10.3 [facility] Comment on above: Order Comment: FASTI NG N Performed By: #### B MP, LIPID ####[place] [id number] [facility] Chloride [Moles/Vol] 106 mmol/L Normal 98-107 [facility] Comment on above: Order Comment: FASTI NG N Performed By: #### B MP, LIPID ####[place] [id number] [facility] CO2 [Moles/Vol] 25.2 mmol/L Normal 21.0-31.0 [facility] Comment on above: Order Comment: FASTI NG N Performed By: #### B MP, LIPID ####[place] [id number] [facility] Creatinine [Mass/Vol] 0.85 mg/dL Normal 0.60-1.20 [facility] Comment on above: Order Comment: FASTI NG N Performed By: #### B MP, LIPID ####[place] [id number] [facility] Creatinine Clr Calc Pharmacy 77.21 Normal [facility] Comment on above: Order Comment: FASTI NG N Performed By: #### B MP, LIPID ####[place] [id number] [facility] GFR/1.73 sq M.predicted MDRD (S/P/Bld) [Vol rate/Area] mL/min/{1.73_m2} Normal [facility] Comment on above: Order Comment: FASTI NG N Performed By: #### B MP, LIPID ####[place] [id number] [facility] Glucose [Mass/Vol] 206 mg/dL High 70-100 [facility] Comment on above: Order Comment: FASTI NG N Result Comment: [place] om Glucose Reference Range is dependent on time and content of last meal. Glucose of more than 200 mg/dL in a nonstressed, ambulatory subject supports the diagnosis of Diabetes Mellitus. ADA recommended reference range Performed By: #### B MP, LIPID ####[place] [id number] [facility] Potassium [Moles/Vol] 3.5 mmol/L Normal 3.5-5.1 [facility] Comment on above: Order Comment: FASTI NG N Performed By: #### B MP, LIPID ####[facility] [place] [id number] [facility] Sodium [Moles/Vol] 139 mmol/L Normal 136-145 [facility] Comment on above: Order Comment: FASTI NG N Performed By: #### B MP, LIPID ####[facility] [place] [id number] [facility] Urea nitrogen [Mass/Vol] 9 mg/dL Normal 7-25 [facility] Comment on above: Order Comment: FASTI NG N Performed By: #### B MP, LIPID ####[facility] Benzodiazepines Screen Ql (U )Ordered By: Priscilla Lang on 04-29-2024 Benzodiazepines Ql (U) Benzodiazepines [Presence] in Urine by Screen method Negative [facility] Benzoylecgonine [Presence] i n Urine by Screen methodOrdered By: Priscilla Lang on 04-29-2024 Benzoylecgonine Screen Ql (U) Benzoylecgonine [Presence] in Urine by Screen method Negative [facility] Cannabinoids [Presence] in U rine by Screen methodOrdered By: Priscilla Lang on 04-29-2024 Cannabinoids Screen Ql (U) Cannabinoids [Presence] in Urine by Screen method Negative [facility] Comment on above: These are unconfirme d results and should not be used for legal purposes. Drug Cut-Off Concentration: AMPH 1000 ng/mL KENDRICK 200 ng/mL HEATHER 200 ng/mL COCM 300 ng/mL OP 300 ng/mL PCP 25 ng/mL THC 20 ng/mL Cholesterol [Mass/volume] in Serum or PlasmaOrdered By: Chico Hearn on 04-29-2024 Cholesterol [Mass/Vol] Cholesterol [Mass/volume] in Serum or Plasma Low 140-200 [facility] Comment on above: Chol less than 200 m g/dl low riskChol 201-239 mg/dl borderline riskChol 240 mg/dl and greater high risk Cholesterol in HDL [Mass/vol ume] in Serum or PlasmaOrdered By: Chico Hearn on 04-29-2024 Cholesterol in HDL [Mass/Vol] Serum or plasma high density lipoprotein (HDL) cholesterol measurement [facility] Comment on above: HDL CHOL ATP-III CLA SSIFICATION Cardiovascular RiskHDL > or equal to 60 mg/dL LOWHDL < 40 mg/dL HIGH Cholesterol in LDL Calc [Mas s/Vol]Ordered By: Chico Hearn on 04-29-2024 Cholesterol in LDL [Mass/Vol] Cholesterol in LDL [Mass/volume] in Serum or Plasma by calculation 0-100 [facility] Comment on above: LDL ATP III CLASSIFI CATIONLDL less than 100 mg/dL OptimalLDL 100-129 mg/dL Near or above optimalLDL 130-159 mg/dL Borderline highLDL 160-189 mg/dL HighLDL greater than 189 mg/dL Very high Cholesterol in VLDL Calc [Ma ss/Vol]Ordered By: Chico Hearn on 04-29-2024 Cholesterol in VLDL [Mass/Vol] Cholesterol in VLDL [Mass/volume] in Serum or Plasma by calculation [facility] Drug Screen,Urineon 04-29-19 25 Amphetamine Screen,Urine Negative Normal Negative [facility] Comment on above: Performed By: #### U RDS, CUU ####[facility] Barbiturate Screen,Urine Negative Normal Negative [facility] Comment on above: Performed By: #### U RDS, CUU ####[facility] Benzodiazepines Screen,Urine Negative Normal Negative [facility] Comment on above: Performed By: #### U RDS, CUU ####[facility] Cannabinoid Screen,Urine Negative Normal Negative [facility] Comment on above: Result Comment: Thes e are unconfirmed results and should not be used for legal purposes. Drug Cut-Off Concentration: AMPH 1000 ng/mL KENDRICK 200 ng/mL HEATHER 200 ng/mL COCM 300 ng/mL OP 300 ng/mL PCP 25 ng/mL THC 20 ng/mLPERFORMED BY:[place] [address] [address] [place], [place] [phone] MEDICAL DIRECTORLE MACE M.D. Performed By: #### U RDS, CUU ####[facility] [place] [address] [facility] Cocaine Screen,Urine Negative Normal Negative [facility] Comment on above: Performed By: #### U RDS, CUU ####[facility] [place] [address] [facility] Opiate Screen,Urine Negative Normal Negative [facility] Comment on above: Performed By: #### U RDS, CUU ####[facility] [place] [address] [facility] Phencyclidine Screen,Urine Negative Normal Negative [facility] Comment on above: Performed By: #### U RDS, CUU ####[address] [address] [facility] Glucose Poct Glucometerson 0 04-29-2024 Glucose [Mass/Vol] 165 mg/dL Normal [facility] Comment on above: Result Comment: [place] Glucose Reference Range is dependent on time and content of last meal. Glucose of more than 200 mg/dL in a nonstressed, ambulatory subject supports the diagnosis of Diabetes Mellitus.PERFORMED BY:[address] [address] [place], [place] [phone] MEDICAL DIRECTORLE MACE M.D. Performed By: #### G LULS ####Point of Care testing, Commemt1 Glu2: Cleaned Meter Normal [facility] Comment on above: Result Comment: PERF ORMED BY:[address] [place], [place] [phone] MEDICAL DIRECTORLE MACE M.D. Performed By: #### G LULS ####Point of Care testing, Glucose [Mass/Vol] 188 mg/dL Normal [facility] Comment on above: Result Comment: [place] om Glucose Reference Range is dependent on time and content of last meal. Glucose of more than 200 mg/dL in a nonstressed, ambulatory subject supports the diagnosis of Diabetes Mellitus. Performed By: #### G LULS ####Point of Care testing, Commemt1 Glu2: Cleaned Meter Normal [facility] Comment on above: Result Comment: PERF ORMED BY:[address] [place]LMitziKenisha[place], [place] [phone] MEDICAL DIRECTORLE MACE M.D. Performed By: #### G LULS ####Point of Care testing, Glucose [Mass/Vol] 192 mg/dL Normal [facility] Comment on above: Result Comment: [place] om Glucose Reference Range is dependent on time and content of last meal. Glucose of more than 200 mg/dL in a nonstressed, ambulatory subject supports the diagnosis of Diabetes Mellitus. Performed By: #### G LULS ####Point of Care testing, Glucose [Mass/Vol] 210 mg/dL Normal [facility] Comment on above: Result Comment: [place] om Glucose Reference Range is dependent on time and content of last meal. Glucose of more than 200 mg/dL in a nonstressed, ambulatory subject supports the diagnosis of Diabetes Mellitus.PERFORMED BY:[address] [place], [place] [phone] MEDICAL DIRECTORLE MACE M.D. Performed By: #### G LULS ####Point of Care testing, Lipid Panelon 04-29-2024 Cholesterol [Mass/Vol] 106 mg/dL Low 140-200 [facility] Comment on above: Order Comment: FASTI NG N Result Comment: Chol less than 200 mg/dl low risk Chol 201-239 mg/dl borderline risk Chol 240 mg/dl and greater high risk Performed By: #### B MP, LIPID ####[address] [address] [facility] Cholesterol in HDL [Mass/Vol] 31 mg/dL Normal 23-92 [facility] Comment on above: Order Comment: FASTI NG N Result Comment: HDL CHOL ATP-III CLASSIFICATION Cardiovascular Risk HDL > or equal to 60 mg/dL LOW HDL < 40 mg/dL HIGH Performed By: #### B MP, LIPID ####[address] [place] [address] [facility] Cholesterol.total/Monica sterol in HDL [Mass ratio] 3.4 {ratio} Normal <5.0 [facility] Comment on above: Order Comment: FASTI NG N Result Comment: PERF ORMED BY:[address] [place], [place] [phone] MEDICAL DIRECTORLE MACE M.D. Performed By: #### B MP, LIPID ####[address] [place] [id number] [facility] LDL Cholesterol,Calculated 45 mg/dL Normal 0-100 [facility] Comment on above: Order Comment: FASTI NG N Result Comment: LDL ATP III CLASSIFICATION LDL less than 100 mg/dL Optimal LDL 100-129 mg/dL Near or above optimal LDL 130-159 mg/dL Borderline high LDL 160-189 mg/dL High LDL greater than 189 mg/dL Very high Performed By: #### B MP, LIPID ####[address] [place] [address] [facility] Triglyceride w/Reflex 151 mg/dL High 0-149 [facility] Comment on above: Order Comment: FASTI NG N Result Comment: TRIG ATP III CLASSIFICATION TRIG less than 150 mg/dL Normal TRIG 150-199 mg/dL Borderline high TRIG 200-500 mg/dL High TRIG greater than 500 mg/dL Very high Standard traceable to the Center for Disease Conrtrol and Prevention (CDC) test method. Performed By: #### B MP, LIPID ####[facility] [place] [address] [facility] VLDL CHOLESTEROL 30 mg/dL Normal [facility] Comment on above: Order Comment: FASTI NG N Performed By: #### B MP, LIPID ####[facility] [place] [address] [facility] No Panel InformationOrdered By: Priscilla Lang on 04-29-2024 Bedside Glucose Comment Glu2: cleaned meter [facility] Opiates [Presence] in Urine by Screen methodOrdered By: Priscilla Lang on 04-29-2024 Opiates Screen Ql (U) Opiates [Presence] in Urine by Screen method Negative [facility] Phencyclidine Screen Ql (U)O rdered By: Priscilla Lang on 04-29-2024 Phencyclidine Ql (U) Phencyclidine [Pres ence] in Urine by Screen method Negative [facility] Serum or plasma total choles terol/high density lipoprotein (HDL) cholesterol mass ratOrdered By: Chico Hearn on 04-29-2024 Cholesterol.total/Monica sterol in HDL [Mass ratio] Serum or plasma total cholesterol/high density lipoprotein (HDL) cholesterol mass rat <5.0 [facility] Triglyceride [Mass/volume] i n Serum or PlasmaOrdered By: Chico Hearn on 04-29-2024 Triglyceride [Mass/Vol] Triglyceride [Mass/volume] in Serum or Plasma High 0-149 [facility] Comment on above: TRIG ATP III CLASSIF ICATIONTRIG less than 150 mg/dL NormalTRIG 150-199 mg/dL Borderline highTRIG 200-500 mg/dL High TRIG greater than 500 mg/dL Very highStandard traceable to the Center for Disease Conrtrol and Prevention (CDC) test method. Urine Cultureon 04-29-2024 Bacteria identified Cx Nom (U) Normal [facility] Comment on above: Performed By: #### U RDS, CUU ####[facility] [address] [place] [address] [facility] Urine cultureOrdered By: Bhargav Lang on 04-29-2024 Bacteria identified Cx Nom (U) Urine culture [facility] Alanine aminotransferase [En zymatic activity/volume] in Serum or PlasmaOrdered By: Wesley Villafuerte on 04-28-2024 ALT [Catalytic activity/Vol] Alanine aminotransferase [Enzymatic activity/volume] in Serum or Plasma [facility] Albumin [Mass/volume] in Ser um or Plasma by Bromocresol green (BCG) dye binding methoOrdered By: Wesley Villafuerte on 04-28-2024 Albumin BCG dye [Mass/Vol] Albumin [Mass/volume] in Serum or Plasma by Bromocresol green (BCG) dye binding metho 3.5-5.7 [facility] Alkaline phosphatase [Enzyma tic activity/volume] in Serum or PlasmaOrdered By: Wesley Villafuerte on 04-28-2024 ALP [Catalytic activity/Vol] Alkaline phosphatase [Enzymatic activity/volume] in Serum or Plasma 34-104 [facility] Anisocytosis LM Ql (Bld)Orde red By: Wesley Villafuerte on 04-28-2024 Anisocytosis Ql (Bld) Anisocytosis [Pres ence] in Blood by Light microscopy [facility] Appearance of UrineOrdered B y: Wesley Villafuerte on 04-28-2024 Appearance (U) Urine appearance Clear [facility] Aspartate aminotransferase [ Enzymatic activity/volume] in Serum or PlasmaOrdered By: Wesley Villafuerte on 04-28-2024 AST [Catalytic activity/Vol] Aspartate aminotransferase [Enzymatic activity/volume] in Serum or Plasma 13-39 [facility] B-Type Natriuretic Peptideon 04-28-2024 Natriuretic peptide B (Bld) [Mass/Vol] 25.0 pg/mL Normal 5-100 [facility] Comment on above: Result Comment: PERF ORMED BY:[facility] [place], [place] [phone] MEDICAL DIRECTORLE MACE M.D. Performed By: #### H S TROP, SCAN CBC, PTT, BNP, PT, MG, CMP ####[address] [address] [facility] Bacteria [Presence] in Urine by AutomatedOrdered By: Wesley Villafuerte on 04-28-2024 Bacteria Auto Ql (U) Bacteria [Presence] in Urine by Automated None Seen [facility] Basophils Auto (Bld) [#/Vol] Ordered By: Wesley Villafuerte on 04-28-2024 Basophils (Bld) [#/Vol] Automated basophil count 0.0-0.2 [facility] Basophils/100 WBC Auto (Bld) Ordered By: Wesley Villafuerte on 04-28-2024 Basophils/100 WBC (Bld) Automated basophil % . [facility] Bilirubin Test strip Ql (U)O rdered By: Wesley Villafuerte on 04-28-2024 Bilirubin Ql (U) Bilirubin.total [Presence] in Urine by Test strip Negative [facility] Bilirubin.total [Mass/volume ] in Serum or PlasmaOrdered By: Wesley Villafuerte on 04-28-2024 Bilirubin [Mass/Vol] Bilirubin.total [Mass/volume] in Serum or Plasma 0.3-1.0 [facility] BioFire Not Detectedon 04-28 BioFire Not Detected Not detected Normal Not Detecte [facility] Comment on above: Result Comment: This is a duplicate RP2.1 COVID (PCR) result to be used for statistical tracking purpose only.PERFORMED BY:[facility] [place], [place] [phone] MEDICAL DIRECTORLE MACE M.D. Performed By: #### R GWYN PANEL UPP., BIOFIRECOVNOTDE ####[facility] [address] [place] [address] [facility] COVID-19 Detected/Not Detect edOrdered By: Wesley Villafuerte on 04-28-2024 SARS-CoV-2 (COVID-19) RNA TEJINDER+non-probe Ql (Nph) Not detected Not Detecte [facility] Comment on above: This is a duplicate RP2.1 COVID (PCR) result to be used for statistical tracking purpose only. CT angio headon 04-28-2024 CT angio head Normal [facility] Calcium [Mass/volume] in Ser um or PlasmaOrdered By: Wesley Villafuerte on 04-28-2024 Calcium [Mass/Vol] Calcium [Mass/volume ] in Serum or Plasma 8.6-10.3 [facility] Carbon dioxide, total [Moles /volume] in Serum or PlasmaOrdered By: Wesley Villafuerte on 04-28-2024 CO2 [Moles/Vol] Carbon dioxide, tota l [Moles/volume] in Serum or Plasma 21.0-31.0 [facility] Chloride [Moles/volume] in S elliot or PlasmaOrdered By: Wesley Villafuerte on 04-28-2024 Chloride [Moles/Vol] Chloride [Moles/vol ume] in Serum or Plasma 98-107 [facility] Color Auto (U)Ordered By: Colin Villafuerte on 04-28-2024 Color (U) Color of Urine by Auto Yellow [facility] Comprehensive Metabolic Pane juan 04-28-2024 Albumin [Mass/Vol] 3.7 g/dL Normal 3.5-5.7 [facility] Comment on above: Performed By: #### H S TROP, SCAN CBC, PTT, BNP, PT, MG, CMP ####[address] Albumin/Globulin [Mass ratio] 1.2 {ratio} Normal [facility] Comment on above: Performed By: #### H S TROP, SCAN CBC, PTT, BNP, PT, MG, CMP ####[address] ALP [Catalytic activity/Vol] 86 U/L Normal 34-104 [facility] Comment on above: Performed By: #### H S TROP, SCAN CBC, PTT, BNP, PT, MG, CMP ####[address] ALT [Catalytic activity/Vol] 20 U/L Normal 7-52 [facility] Comment on above: Performed By: #### H S TROP, SCAN CBC, PTT, BNP, PT, MG, CMP ####[address] Anion gap [Moles/Vol] 12.7 mmol/L Normal 6.0-15.0 Th e [facility] Comment on above: Performed By: #### H S TROP, SCAN CBC, PTT, BNP, PT, MG, CMP ####[address] AST [Catalytic activity/Vol] 25 U/L Normal 13-39 [facility] Comment on above: Performed By: #### H S TROP, SCAN CBC, PTT, BNP, PT, MG, CMP ####[address] Bilirubin [Mass/Vol] 0.3 mg/dL Normal 0.3-1.0 [facility] Comment on above: Performed By: #### H S TROP, SCAN CBC, PTT, BNP, PT, MG, CMP ####[address] Calcium [Mass/Vol] 9.7 mg/dL Normal 8.6-10.3 [facility] Comment on above: Performed By: #### H S TROP, SCAN CBC, PTT, BNP, PT, MG, CMP ####[address] Chloride [Moles/Vol] 104 mmol/L Normal 98-107 [facility] Comment on above: Performed By: #### H S TROP, SCAN CBC, PTT, BNP, PT, MG, CMP ####[address] CO2 [Moles/Vol] 24.2 mmol/L Normal 21.0-31.0 [facility] Comment on above: Performed By: #### H S TROP, SCAN CBC, PTT, BNP, PT, MG, CMP ####[address] Creatinine [Mass/Vol] 0.85 mg/dL Normal 0.60-1.20 [facility] Comment on above: Performed By: #### H S TROP, SCAN CBC, PTT, BNP, PT, MG, CMP ####[address] Creatinine Clr Calc Pharmacy 77.21 Normal [facility] Comment on above: Performed By: #### H S TROP, SCAN CBC, PTT, BNP, PT, MG, CMP ####[address] GFR/1.73 sq M.predicted MDRD (S/P/Bld) [Vol rate/Area] mL/min/{1.73_m2} Normal [facility] Comment on above: Performed By: #### H S TROP, SCAN CBC, PTT, BNP, PT, MG, CMP ####[address] Globulin (S) [Mass/Vol] 3.1 g/dL Normal [facility] Comment on above: Performed By: #### H S TROP, SCAN CBC, PTT, BNP, PT, MG, CMP ####[address] [place] [id number] [facility] Glucose [Mass/Vol] 231 mg/dL High 70-100 [facility] Comment on above: Result Comment: [facility] Glucose Reference Range is dependent on time and content of last meal. Glucose of more than 200 mg/dL in a nonstressed, ambulatory subject supports the diagnosis of Diabetes Mellitus. ADA recommended reference range Performed By: #### H S TROP, SCAN CBC, PTT, BNP, PT, MG, CMP ####[address] [place] [id number] [facility] Potassium [Moles/Vol] 3.9 mmol/L Normal 3.5-5.1 [facility] Comment on above: Result Comment: Hemo lysis is present at a level that could interfere with the result. Contact lab if redraw is required Performed By: #### H S TROP, SCAN CBC, PTT, BNP, PT, MG, CMP ####[place] [id number] [facility] Protein [Mass/Vol] 6.8 g/dL Normal 6.4-8.9 [facility] Comment on above: Performed By: #### H S TROP, SCAN CBC, PTT, BNP, PT, MG, CMP ####[address] [place] [address] [facility] Sodium [Moles/Vol] 137 mmol/L Normal 136-145 [facility] Comment on above: Performed By: #### H S TROP, SCAN CBC, PTT, BNP, PT, MG, CMP ####[address] [address] [facility] Urea nitrogen [Mass/Vol] 11 mg/dL Normal 7-25 [facility] Comment on above: Performed By: #### H S TROP, SCAN CBC, PTT, BNP, PT, MG, CMP ####[address] [address] [facility] Creatinine [Mass/volume] in Serum or PlasmaOrdered By: Wesley Villafuerte on 04-28-2024 Creatinine [Mass/Vol] Creatinine [Mass/v olume] in Serum or Plasma 0.60-1.20 [facility] Dipstick and Microscopicon 1 Appearance (U) Clear Normal Clear [facility] Comment on above: Order Comment: Name Collection Type:: Clean-Voided Midstream Performed By: #### A DDONUAPLUS ####[address] [address] [facility] Bacteria,Urine Rare Normal None Seen [facility] Comment on above: Order Comment: Name Collection Type:: Clean-Voided Midstream Performed By: #### A DDONUAPLUS ####[address] [address] [facility] Bilirubin,Urine Negative Normal Negative [facility] Comment on above: Order Comment: Name Collection Type:: Clean-Voided Midstream Performed By: #### A DDONUAPLUS ####[address] [address] [facility] Budding Yeast,Urine Rare High None Seen [facility] Comment on above: Order Comment: Name Collection Type:: Clean-Voided Midstream Result Comment: PERF ORMED BY:[address] [place], [place] [phone] MEDICAL DIRECTORLE MACE M.D. Performed By: #### A DDONUAPLUS ####[address] [address] [facility] Color (U) Light-Yellow Normal Yellow The [facility] Comment on above: Order Comment: Name Collection Type:: Clean-Voided Midstream Performed By: #### A DDONUAPLUS ####[address] [address] [facility] Glucose Ql (U) >= High Normal [facility] Comment on above: Order Comment: Name Collection Type:: Clean-Voided Midstream Performed By: #### A DDONUAPLUS ####[address] [address] [facility] Hyaline Casts,Urine 0 [LPF] Normal 0-8 [facility] Comment on above: Order Comment: Name Collection Type:: Clean-Voided Midstream Performed By: #### A DDONUAPLUS ####[address] [place] [address] [facility] Ketones Ql (U) Negative Normal Negative The [facility] Comment on above: Order Comment: Name Collection Type:: Clean-Voided Midstream Performed By: #### A DDONUAPLUS ####[address] [address] [facility] Leukocyte esterase Test strip Ql (U) Negative Normal Negative [facility] Comment on above: Order Comment: Name Collection Type:: Clean-Voided Midstream Performed By: #### A DDONUAPLUS ####[address] [address] [facility] Nitrite,Urine Negative Normal Negative [facility] Comment on above: Order Comment: Name Collection Type:: Clean-Voided Midstream Performed By: #### A DDONUAPLUS ####[address] [address] [facility] Occult Blood,Urine 2+ High Negative [facility] Comment on above: Order Comment: Name Collection Type:: Clean-Voided Midstream Result Comment: PERF ORMED BY:[address] [place], [place] [phone] MEDICAL DIRECTORLE MACE M.D. Performed By: #### A DDONUAPLUS ####[address] [address] [facility] pH (U) 5.5 [pH] Normal 5.0-9.0 [facility] Comment on above: Order Comment: Name Collection Type:: Clean-Voided Midstream Performed By: #### A DDONUAPLUS ####[address] [address] [facility] Protein,Urine Negative Normal Negative [facility] Comment on above: Order Comment: Name Collection Type:: Clean-Voided Midstream Performed By: #### A DDONUAPLUS ####[address] RBC,Urine 10 [HPF] High 0-4 [facility] Comment on above: Order Comment: Name Collection Type:: Clean-Voided Midstream Performed By: #### A DDONUAPLUS ####[address] Specificy [place],Urine 1.038 High 1.00 1-1.03 0 [facility] Comment on above: Order Comment: Name Collection Type:: Clean-Voided Midstream Performed By: #### A DDONUAPLUS ####[address] Squamous Epithelial Cell,Urine 3 [HPF] High 0-2 [facility] Comment on above: Order Comment: Name Collection Type:: Clean-Voided Midstream Performed By: #### A DDONUAPLUS ####[address] Urobilinogen,Urine Normal Normal Normal [facility] Comment on above: Order Comment: Name Collection Type:: Clean-Voided Midstream Performed By: #### A DDONUAPLUS ####[address] WBC,Urine 5 [HPF] High 0-4 [facility] Comment on above: Order Comment: Name Collection Type:: Clean-Voided Midstream Performed By: #### A DDONUAPLUS ####[address] ECG 12 lead ECGon 04-28-2024 ECG 12 lead ECG Normal [facility] Eosinophils Auto (Bld) [#/Vo l]Ordered By: Wesley Villafuerte on 04-28-2024 Eosinophils (Bld) [#/Vol] Automated eosinophil count 0.0-0.45 [facility] Eosinophils/100 WBC Auto (Bl d)Ordered By: Wesley Villafuerte on 04-28-2024 Eosinophils/100 WBC (Bld) Automated eosinophil % . [facility] Epithelial cells.squamous [# /area] in Urine sediment by Automated countOrdered By: Wesley Villafuerte on 04-28-2024 Epithelial cells.squamous Auto (Urine sed) [#/Area] Epithelial cells.squamous [#/area] in Urine sediment by Automated count High 0-2 [facility] Erythrocyte distribution wid th Auto (RBC) [Ratio]Ordered By: Wesley Villafuerte on 04-28-2024 Erythrocyte distribution width (RBC) [Ratio] Erythrocyte distribution width [Ratio] by Automated count High 11.9-15.3 [facility] Erythrocyte morphology findi ng [Identifier] in BloodOrdered By: Wesley Villafuerte on 04-28-2024 RBC morphology finding Nom (Bld) RBC morphology [facility] Erythrocytes [#/area] in Uri ne sediment by Automated countOrdered By: Wesley Villafuerte on 04-28-2024 RBC Auto (Urine sed) [#/Area] Erythrocytes [#/area] in Urine sediment by Automated count High 0-4 [facility] Globulin Calc (S) [Mass/Vol] Ordered By: Wesley Villafuerte on 04-28-2024 Globulin (S) [Mass/Vol] Serum globulin measurement by calculation (mass/volume) [facility] Glucose [Mass/volume] in Ser um or PlasmaOrdered By: Wesley Villafuerte on 04-28-2024 Glucose [Mass/Vol] Glucose [Mass/volume ] in Serum or Plasma High 70-100 [facility] Comment on above: ADA recommended refe [...] in Urine by Test strip High Normal [facility] HbA1c HPLC (Bld) [Mass fract ion]on 04-28-2024 HbA1c (Bld) [Mass fraction] Hemoglobin A1c/Hemoglobin.total in Blood by HPLC [facility] Hematocrit Auto (Bld) [Volum e fraction]Ordered By: Wesley Villafuerte on 04-28-2024 Hematocrit (Bld) [Volume fraction] Hematocrit [Volume Fraction] of Blood by Automated count High 34.0-46.4 [facility] Hemoglobin Test strip Ql (U) Ordered By: Wesley Villafuerte on 04-28-2024 Hemoglobin Ql (U) Hemoglobin [Presence ] in Urine by Test strip High Negative [facility] Hemoglobin [Mass/volume] in BloodOrdered By: Wesley Villafuerte on 04-28-2024 Hemoglobin (Bld) [Mass/Vol] Hemoglobin [Mass/volume] in Blood High 11.8-15.4 [facility] Hyaline casts [#/area] in Ur ine sediment by Automated countOrdered By: Wesley Villafuerte on 04-28-2024 Hyaline casts Auto (Urine sed) [#/Area] Hyaline casts [#/area] in Urine sediment by Automated count 0-8 [facility] INR in Platelet poor plasma by Coagulation assayOrdered By: Wesley Villafuerte on 04-28-2024 INR Coag (PPP) [Relative time] INR in Platelet poor plasma by Coagulation assay [facility] Comment on above: INR Therapeutic Rang [...] i n Urine by Test strip Negative [facility] Leukocyte esterase [Presence ] in Urine by Test stripOrdered By: Wesley Villafuerte on 04-28-2024 Leukocyte esterase Test strip Ql (U) Leukocyte esterase [Presence] in Urine by Test strip Negative [facility] Leukocytes [#/area] in Urine sediment by Automated countOrdered By: Wesley Villafuerte on 04-28-2024 WBC Auto (Urine sed) [#/Area] Leukocytes [#/area] in Urine sediment by Automated count High 0-4 [facility] Leukocytes [#/volume] correc deepika for nucleated erythrocytes in Blood by Automated counOrdered By: Wesley Villafuerte on 04-28-2024 WBC corrected for nucl RBC Auto (Bld) [#/Vol] Leukocytes [#/volume] corrected for nucleated erythrocytes in Blood by Automated coun 3.8-11.6 [facility] Lymphocytes Auto (Bld) [#/Vo l]Ordered By: Wesley Villafuerte on 04-28-2024 Lymphocytes (Bld) [#/Vol] Lymphocytes [#/volume] in Blood by Automated count 1.00-4.8 [facility] Lymphocytes/100 WBC Auto (Bl d)Ordered By: Wesley Villafuerte on 04-28-2024 Lymphocytes/100 WBC (Bld) Lymphocytes/100 leukocytes in Blood by Automated count . [facility] MCH Auto (RBC) [Entitic mass ]Ordered By: Wesley Villafuerte on 04-28-2024 MCH (RBC) [Entitic mass] MCH [Entitic mass] by Automated count 24.7-34.3 [facility] MCHC Auto (RBC) [Mass/Vol]Or dered By: Wesley Villafuerte on 04-28-2024 MCHC (RBC) [Mass/Vol] MCHC [Mass/volume] by Automated count 32.0-35.0 [facility] MCV Auto (RBC) [Entitic vol] Ordered By: Wesley Villafuerte on 04-28-2024 MCV (RBC) [Entitic vol] MCV [Entitic vol ume] by Automated count 80-100 [facility] Magnesiumon 04-28-2024 Magnesium [Mass/Vol] 1.7 mg/dL Low 1.9-2.7 [facility] Comment on above: Result Comment: PERF ORMED BY:[facility] [place], [place] [phone] MEDICAL DIRECTORLE MACE M.D. Performed By: #### H S TROP, SCAN CBC, PTT, BNP, PT, MG, CMP ####[facility] [place] [address] [facility] Magnesium [Mass/volume] in S elliot or PlasmaOrdered By: Wesley Villafuerte on 04-28-2024 Magnesium [Mass/Vol] Magnesium [Mass/vol ume] in Serum or Plasma Low 1.9-2.7 [facility] Monocyte distribution width [Entitic volume] in Blood by AutomatedOrdered By: Wesley Villafuerte on 04-28-2024 Monocyte distribution width Auto (Bld) [Entitic vol] Monocyte distribution width [Entitic volume] in Blood by Automated High 0.00-20.00 [facility] Comment on above: For adults in ED, MD W > 20.0 may be associated with a higher risk of sepsis during the first 12 hrs of hospital admission Monocytes Auto (Bld) [#/Vol] Ordered By: Wesley Villafuerte on 04-28-2024 Monocytes (Bld) [#/Vol] Automated blood monocyte count 0.0-0.8 [facility] Monocytes/100 WBC Auto (Bld) Ordered By: Wesley Villafuerte on 04-28-2024 Monocytes/100 WBC (Bld) Automated monocyte % . [facility] Natriuretic peptide B [Mass/ Vol]Ordered By: Wesley Villafuerte on 04-28-2024 Natriuretic peptide B (Bld) [Mass/Vol] BNP ser/plas 5-100 [facility] Neutrophils Auto (Bld) [#/Vo l]Ordered By: Wesley Villafuerte on 04-28-2024 Neutrophils (Bld) [#/Vol] Neutrophils [#/volume] in Blood by Automated count 1.8-7.7 [facility] Neutrophils/100 WBC Auto (Bl d)Ordered By: Wesley Villafuerte on 04-28-2024 Neutrophils/100 WBC (Bld) Automated neutrophil % . [facility] Nitrite Test strip Ql (U)Ord ered By: Wesley Villafuerte on 04-28-2024 Nitrite Ql (U) Nitrite [Presence] i n Urine by Test strip Negative [facility] No Panel InformationOrdered By: Wesley Villafuerte on 04-28-2024 Estimated GFR (CKD-EPI) > 60.0 mL/Min [facility] Creatinine Clearance (Chem 77.21 [facility] No Panel Informationon 04-28 Bedside Glucose 211 [facility] Nucleated erythrocytes [Pres ence] in Blood by Automated countOrdered By: Wesley Villafuerte on 04-28-2024 Nucleated RBC Auto Ql (Bld) Nucleated erythrocytes [Presence] in Blood by Automated count 0-0.5 [facility] Partial Thromboplastin Timeo n 04-28-2024 aPTT Coag (Bld) [Time] 30.0 s Normal 25.1-36.5 [facility] Comment on above: Result Comment: A he matocrit value greater than 55% may lead to inaccurate results in coagulation testing. Patients having hematocrit values >55% require a special collection tube for coagulation studies. Please contact the laboratory at [phone] for redraw instructions.PERFORMED BY:[facility] [place], [place] [phone] MEDICAL DIRECTORLE MACE M.D. Performed By: #### H S TROP, SCAN CBC, PTT, BNP, PT, MG, CMP ####[facility] [id number] [place] [address] [facility] Platelet adequacy [Presence] in Blood by Light microscopyOrdered By: Wesley Villafuerte on 04-28-2024 Platelets LM Ql (Bld) Platelet adequacy [Presence] in Blood by Light microscopy Normal [facility] Platelet mean volume Auto (B ld) [Entitic vol]Ordered By: Wesley Villafuerte on 04-28-2024 Platelet mean volume (Bld) [Entitic vol] Platelet mean volume [Entitic volume] in Blood by Automated count 6.3-10.7 [facility] Platelet morphology finding [Identifier] in BloodOrdered By: Wesley Villafuerte on 04-28-2024 Platelet morphology finding Nom (Bld) Platelet morphology finding [Identifier] in Blood Normal [facility] Platelets Auto (Bld) [#/Vol] Ordered By: Wesley Villafuerte on 04-28-2024 Platelets (Bld) [#/Vol] Platelets [#/vol ume] in Blood by Automated count Low 150-450 [facility] Polychromasia [Presence] in Blood by Light microscopyOrdered By: Wesley Villafuerte on 04-28-2024 Polychromasia LM Ql (Bld) Polychromasia [Presence] in Blood by Light microscopy [facility] Potassium [Moles/volume] in Serum or PlasmaOrdered By: Wesley Villafuerte on 04-28-2024 Potassium [Moles/Vol] Potassium [Moles/v olume] in Serum or Plasma 3.5-5.1 [facility] Comment on above: Hemolysis is present at a level that could interfere with the result.Contact lab if redraw is required Protein Test strip (U) [Mass /Vol]Ordered By: Wesley Villafuerte on 04-28-2024 Protein (U) [Mass/Vol] Protein [Mass/vol ume] in Urine by Test strip Negative [facility] Protein [Mass/volume] in Ser um or PlasmaOrdered By: Wesley Villafuerte on 04-28-2024 Protein [Mass/Vol] Protein [Mass/volume ] in Serum or Plasma 6.4-8.9 [facility] Prothrombin Time INRon 04-28 INR Coag (PPP) [Relative time] 1.3 {INR} Normal [facility] Comment on above: Result Comment: [...] SCAN CBC, PTT, BNP, PT, MG, CMP ####[facility] [id number] [place] [address] [facility] PT Coag (PPP) [Time] 15.1 s High 9.0-12.9 [facility] Comment on above: Result Comment: A he matocrit value greater than 55% may lead to inaccurate results in coagulation testing. Patients having hematocrit values >55% require a special collection tube for coagulation studies. Please contact the laboratory at [phone] for redraw instructions. Performed By: #### H S TROP, SCAN CBC, PTT, BNP, PT, MG, CMP ####[facility] [id number] [place] [address] [facility] Prothrombin time (PT)Ordered By: Wesley Villafuerte on 04-28-2024 PT Coag (PPP) [Time] Prothrombin time (PT) High 9.0- 12.9 [facility] Comment on above: A hematocrit value g reater than 55% may lead to inaccurate results in coagulation testing. Patients having hematocrit values >55% require a special collection tube for coagulation studies. Please contact the laboratory at [phone] for redraw instructions. RBC Auto (Bld) [#/Vol]Ordere d By: Wesley Villafuerte on 04-28-2024 RBC (Bld) [#/Vol] Erythrocytes [#/volu me] in Blood by Automated count High 3.60-5.00 [facility] Respiratory (Upper) Panel, P CRon 04-28-2024 Respiratory (Upper) Panel, PCR Normal [facility] Comment on above: Performed By: #### R GWYN PANEL UPP., BIOFIRECOVNOTDE ####[address] Respiratory pathogens DNA an d RNA panel - Nasopharynx by TEJINDER with non-probe detectionOrdered By: Wesley Villafuerte on 04-28-2024 Respiratory pathogens DNA and RNA panel TEJINDER+non-probe (Nph) Respiratory pathogens DNA and RNA panel - Nasopharynx by TEJINDER with non-probe detection [facility] Scan and CBCon 04-28-2024 Anisocytosis Ql (Bld) Slight Normal [facility] Comment on above: Performed By: #### H S TROP, SCAN CBC, PTT, BNP, PT, MG, CMP ####[address] Basophils (Bld) [#/Vol] 0.1 10*3/uL Normal 0.0-0.2 [facility] Comment on above: Performed By: #### H S TROP, SCAN CBC, PTT, BNP, PT, MG, CMP ####[address] Basophils/100 WBC (Bld) 1.1 % Normal . T [facility] Comment on above: Performed By: #### H S TROP, SCAN CBC, PTT, BNP, PT, MG, CMP ####[address] Eosinophils (Bld) [#/Vol] 0.3 10*3/uL Normal 0.0-0.45 [facility] Comment on above: Performed By: #### H S TROP, SCAN CBC, PTT, BNP, PT, MG, CMP ####[address] Eosinophils/100 WBC (Bld) 2.7 % Normal . [facility] Comment on above: Performed By: #### H S TROP, SCAN CBC, PTT, BNP, PT, MG, CMP ####[address] Erythrocyte distribution width (RBC) [Ratio] 15.4 % High 11.9-15.3 [facility] Comment on above: Performed By: #### H S TROP, SCAN CBC, PTT, BNP, PT, MG, CMP ####[address] Hematocrit (Bld) [Volume fraction] 48.1 % High 34.0-46.4 [facility] Comment on above: Performed By: #### H S TROP, SCAN CBC, PTT, BNP, PT, MG, CMP ####[address] Hemoglobin (Bld) [Mass/Vol] 16.0 g/dL High 11.8-15.4 [facility] Comment on above: Performed By: #### H S TROP, SCAN CBC, PTT, BNP, PT, MG, CMP ####[address] Lymphocytes (Bld) [#/Vol] 2.5 10*3/uL Normal 1.00-4.8 [facility] Comment on above: Performed By: #### H S TROP, SCAN CBC, PTT, BNP, PT, MG, CMP ####[address] Lymphocytes/100 WBC (Bld) 24.6 % Normal . [facility] Comment on above: Performed By: #### H S TROP, SCAN CBC, PTT, BNP, PT, MG, CMP ####[address] MCH (RBC) [Entitic mass] 31.7 pg Normal 24.7-34.3 [facility] Comment on above: Performed By: #### H S TROP, SCAN CBC, PTT, BNP, PT, MG, CMP ####[address] MCV (RBC) [Entitic vol] 95.1 fL Normal 80-100 [facility] Comment on above: Performed By: #### H S TROP, SCAN CBC, PTT, BNP, PT, MG, CMP ####[address] Mean Corpuscular HGB Conc 33.3 g/dL Normal 32.0-35.0 [facility] Comment on above: Performed By: #### H S TROP, SCAN CBC, PTT, BNP, PT, MG, CMP ####[address] Monocytes (Bld) [#/Vol] 0.8 10*3/uL Normal 0.0-0.8 [facility] Comment on above: Performed By: #### H S TROP, SCAN CBC, PTT, BNP, PT, MG, CMP ####[address] Monocytes/100 WBC (Bld) 20.25 % High 0.00-20.00 [facility] Comment on above: Result Comment: For adults in ED, MDW > 20.0 may be associated with a higher risk of sepsis during the first 12 hrs of hospital admission Performed By: #### H S TROP, SCAN CBC, PTT, BNP, PT, MG, CMP ####[address] Monocytes/100 WBC (Bld) 7.6 % Normal . [facility] Comment on above: Performed By: #### H S TROP, SCAN CBC, PTT, BNP, PT, MG, CMP ####[address] Neutrophils (Bld) [#/Vol] 6.5 10*3/uL Normal 1.8-7.7 [facility] Comment on above: Performed By: #### H S TROP, SCAN CBC, PTT, BNP, PT, MG, CMP ####[address] [place] [address] [facility] Neutrophils/100 WBC (Bld) 64.0 % Normal . [facility] Comment on above: Performed By: #### H S TROP, SCAN CBC, PTT, BNP, PT, MG, CMP ####[address] [place] [address] [facility] NRBC% 0.2 /100{WBC} Normal 0-0.5 [facility] Comment on above: Performed By: #### H S TROP, SCAN CBC, PTT, BNP, PT, MG, CMP ####[address] [address] [facility] Platelet Estimate Decreased Normal Normal [facility] Comment on above: Performed By: #### H S TROP, SCAN CBC, PTT, BNP, PT, MG, CMP ####[address] [address] [facility] Platelet mean volume (Bld) [Entitic vol] 9.9 fL Normal 6.3-10.[address] [facility] Comment on above: Performed By: #### H S TROP, SCAN CBC, PTT, BNP, PT, MG, CMP ####[place] [id number] [facility] Platelet Morphology Normal Normal Normal [facility] Comment on above: Result Comment: PERF ORMED BY:[address] [place], [place] [phone] MEDICAL DIRECTORLE MACE M.D. Performed By: #### H S TROP, SCAN CBC, PTT, BNP, PT, MG, CMP ####[address] [address] [facility] Platelets (Bld) [#/Vol] 136 10*3/uL Low 150-450 [facility] Comment on above: Performed By: #### H S TROP, SCAN CBC, PTT, BNP, PT, MG, CMP ####[address] [address] [facility] Polychromasia Slight Normal [facility] Comment on above: Performed By: #### H S TROP, SCAN CBC, PTT, BNP, PT, MG, CMP ####[place] [address] RBC (Bld) [#/Vol] 5.06 10*6/uL High 3.60-5.00 [facility] Comment on above: Performed By: #### H S TROP, SCAN CBC, PTT, BNP, PT, MG, CMP ####[place] [address] WBC (Bld) [#/Vol] 10.2 10*3/uL Normal 3.8-11.6 [facility] Comment on above: Performed By: #### H S TROP, SCAN CBC, PTT, BNP, PT, MG, CMP ####[place] [address] WBC (Bld) [#/Vol] 10.9 10*3/uL Normal 3.8-11.6 [facility] Comment on above: Performed By: #### H S TROP, SCAN CBC, PTT, BNP, PT, MG, CMP ####[address] Serum or plasma albumin/glob ulin mass ratioOrdered By: Wesley Villafuerte on 04-28-2024 Albumin/Globulin [Mass ratio] Serum or plasma albumin/globulin mass ratio [facility] Serum or plasma anion gap de terminationOrdered By: Wesley Villafuerte on 04-28-2024 Anion gap [Moles/Vol] Serum or plasma an ion gap determination 6.0-15.0 [facility] Sodium [Moles/volume] in Ser um or PlasmaOrdered By: Wesley Villafuerte on 04-28-2024 Sodium [Moles/Vol] Sodium [Moles/volume ] in Serum or Plasma 136-145 [facility] Specific gravity Test strip (U) [Rel density]Ordered By: Wesley Villafuerte on 04-28-2024 Specific gravity (U) [Rel density] Specific gravity of Urine by Test strip High 1.001-1.03 0 [facility] Troponin I High Sensitivityo n 04-28-2024 Troponin I High Sensitivity 5.1 pg/mL Normal 0.0-15.0 [facility] Comment on above: Result Comment: PERF ORMED BY:[address] [id number] MEDICAL DIRECTORLE MACE M.D. Performed By: #### H S TROP, SCAN CBC, PTT, BNP, PT, MG, CMP ####[place] [id number] [facility] Troponin I.cardiac [Mass/vol ume] in Serum or Plasma by Detection limit <= 0.01 ng/Ordered By: Wesley Villafuerte on 04-28-2024 Troponin I.cardiac DL <= 0.01 ng/mL [Mass/Vol] Troponin I.cardiac [Mass/volume] in Serum or Plasma by Detection limit <= 0.01 ng/ 0.0-15.0 [facility] Urea nitrogen [Mass/volume] in Serum or PlasmaOrdered By: Wesley Villafuerte on 04-28-2024 Urea nitrogen [Mass/Vol] Urea nitrogen [Mass/volume] in Serum or Plasma 7-25 [facility] Urobilinogen Test strip (U) [Mass/Vol]Ordered By: Wesley Villafuerte on 04-28-2024 Urobilinogen (U) [Mass/Vol] Urobilinogen [Mass/volume] in Urine by Test strip Normal [facility] WBC Auto (Bld) [#/Vol]Ordere d By: Wesley Villafuerte on 04-28-2024 WBC (Bld) [#/Vol] Leukocytes [#/volume ] in Blood by Automated count 3.8-11.6 [facility] X-ray reportOrdered By: Oz Bowling on 04-28-2024 Study report [facility] [address] [place] [address] XRay Report Signed Patient: Taye Gay MR#: [id number] : 1955 Acct:[id number] Age/Sex: 68 / F ADM Date: 4 Loc: ER Room: Type: [facility] ER Attending Dr: Copies to: Wesley Villafuerte [...] Oz Bowling M.D.04/28/2024 9:46 PM Dictation Location: [facility]--17 Transcribed By: [facility] 04/28/242145 Dictated By: Oz Bowling II, MD 04/28/242143 Signed By: 04/28/242145 [facility] Work Phone: XR chest 2V*on 04-28-2024 XR chest 2V* Normal [facility] Yeast.budding [Presence] in Urine by Computer assisted methodOrdered By: Wesley Villafuerte on 04-28-2024 Yeast.budding Computer assisted Ql (U) Yeast.budding [Presence] in Urine by Computer assisted method High None Seen [facility] aPTT in Platelet poor plasma by Coagulation assayOrdered By: Wesley Villafuerte on 04-28-2024 aPTT Coag (PPP) [Time] Activated partial thromboplastin time (aPTT) in platelet poor plasma by coagulation a 25.1-36.5 [facility] Comment on above: A hematocrit value g reater than 55% may lead to inaccurate results in coagulation testing. Patients having hematocrit values >55% require a special collection tube for coagulation studies. Please contact the laboratory at [phone] for redraw instructions. pH Test strip (U)Ordered By: Wesley Villafuerte on 04-28-2024 pH (U) pH of Urine by Test strip 5.0-9.0 [facility] ECG 12 lead ECGon 04-27-2024 ECG 12 lead ECG Normal [facility] Alanine aminotransferase [En zymatic activity/volume] in Serum or PlasmaOrdered By: Nataliya Jane on 04-14-2024 ALT [Catalytic activity/Vol] Alanine aminotransferase [Enzymatic activity/volume] in Serum or Plasma 7-52 [facility] Albumin [Mass/volume] in Ser um or Plasma by Bromocresol green (BCG) dye binding methoOrdered By: Nataliya Jane on 04-14-2024 Albumin BCG dye [Mass/Vol] Albumin [Mass/volume] in Serum or Plasma by Bromocresol green (BCG) dye binding metho 3.5-5.7 [facility] Alkaline phosphatase [Enzyma tic activity/volume] in Serum or PlasmaOrdered By: Nataliya Jane on 04-14-2024 ALP [Catalytic activity/Vol] Alkaline phosphatase [Enzymatic activity/volume] in Serum or Plasma 34-104 [facility] Aspartate aminotransferase [ Enzymatic activity/volume] in Serum or PlasmaOrdered By: Nataliya Jane on 04-14-2024 AST [Catalytic activity/Vol] Aspartate aminotransferase [Enzymatic activity/volume] in Serum or Plasma 13-39 [facility] Bilirubin.total [Mass/volume ] in Serum or PlasmaOrdered By: Nataliya Jane on 04-14-2024 Bilirubin [Mass/Vol] Bilirubin.total [Mass/volume] in Serum or Plasma 0.3-1.0 [facility] CBC W Auto Differential pane l (Bld)on 04-14-2024 Basophils (Bld) [#/Vol] 0.1 10*3/uL 0.0 - 0.2 10*3/uL [facility] Basophils/100 WBC Manual cnt (Syn fld) 0.6 % . [facility] Eosinophils (Bld) [#/Vol] 0.3 10*3/uL 0.0 - 0.45 10*3/uL [facility] Eosinophils/100 WBC Manual cnt (Syn fld) 2.6 % . [facility] Erythrocyte distribution width (RBC) [Ratio] 15 % 11.9 - 15.3 % [facility] Hematocrit (Bld) [Volume fraction] 49.7 % High 34.0 - 46.4 % [facility] Hemoglobin (Bld) [Mass/Vol] 16.6 g/dL High 11.8 - 15.4 g/dL [facility] Interpretation and review of laboratory results Abnormal [facility] Lymphocytes (Bld) [#/Vol] 2.1 10*3/uL 1.00 - 4.8 10*3/uL [facility] Lymphocytes/100 WBC Manual cnt (Syn fld) 19.3 % . [facility] MCH (RBC) [Entitic mass] 31.2 pg 24.7 - 34.3 pg [facility] MCHC (RBC) [Mass/Vol] 33.4 g/dL 32.0 - 35.0 g/dL [facility] MCV (RBC) [Entitic vol] 93.4 fL 80 - 100 fL [facility] Monocytes (Bld) [#/Vol] 0.9 10*3/uL High 0.0 - 0.8 10*3/uL [facility] Monocytes+Macrophages/1 00 WBC Manual cnt (Syn fld) 8.7 % . [facility] Neutrophils (Bld) [#/Vol] 7.3 10*3/uL 1.8 - 7.7 10*3/uL [facility] Neutrophils/100 WBC Manual cnt (Syn fld) 68.8 % . [facility] NRBC 0.1 /100{WBC} 0 - 0.5 /100{WBC} [facility] Platelet mean volume (Bld) [Entitic vol] 8.9 fL 6.3 - 10.7 fL [facility] Platelets (Bld) [#/Vol] 167 10*3/uL 150 - 450 10*3/uL [facility] RBC LM.HPF (Urine sed) [#/Area] 5.32 10*6/uL High 3.60 - 5.00 10*6/uL [facility] WBC (Bld) [#/Vol] 10.7 10*3/uL 3.8 - 11.6 10*3/uL [facility] WBC LM.HPF (Urine sed) [#/Area] 10.7 10*3/uL 3.8 - 11.6 10*3/uL [facility] Calcium [Mass/volume] in Ser um or PlasmaOrdered By: Nataliya Jane on 04-14-2024 Calcium [Mass/Vol] Calcium [Mass/volume ] in Serum or Plasma 8.6-10.3 [facility] Carbon dioxide, total [Moles /volume] in Serum or PlasmaOrdered By: Nataliya Jane on 04-14-2024 CO2 [Moles/Vol] Carbon dioxide, tota l [Moles/volume] in Serum or Plasma 21.0-31.0 [facility] Chloride [Moles/volume] in S elliot or PlasmaOrdered By: Nataliya Jane on 04-14-2024 Chloride [Moles/Vol] Chloride [Moles/vol ume] in Serum or Plasma 98-107 [facility] Complete Blood Count Auto Di ffon 04-14-2024 Basophils (Bld) [#/Vol] 0.1 10*3/uL Normal 0.0-0.2 [facility] Comment on above: Result Comment: PERF ORMED BY:[address] [place], [place] [id number] MEDICAL DIRECTORLE MACE M.D. Performed By: #### C MP, LDH, PATH SLIDE REV, CBC ####[address] [address] [facility] Basophils/100 WBC (Bld) 0.6 % Normal . T kan [facility] Comment on above: Performed By: #### C MP, LDH, PATH SLIDE REV, CBC ####[address] [address] [place] Eosinophils (Bld) [#/Vol] 0.3 10*3/uL Normal 0.0-0.45 [facility] Comment on above: Performed By: #### C MP, LDH, PATH SLIDE REV, CBC ####[address] [address] [place] Eosinophils/100 WBC (Bld) 2.6 % Normal . [facility] Comment on above: Performed By: #### C MP, LDH, PATH SLIDE REV, CBC ####[place] [id number] [facility] Erythrocyte distribution width (RBC) [Ratio] 15.0 % Normal 11.9-15.3 [facility] Comment on above: Performed By: #### C MP, LDH, PATH SLIDE REV, CBC ####[address] Hematocrit (Bld) [Volume fraction] 49.7 % High 34.0-46.4 [facility] Comment on above: Performed By: #### C MP, LDH, PATH SLIDE REV, CBC ####[address] Hemoglobin (Bld) [Mass/Vol] 16.6 g/dL High 11.8-15.4 [facility] Comment on above: Performed By: #### C MP, LDH, PATH SLIDE REV, CBC ####[address] Lymphocytes (Bld) [#/Vol] 2.1 10*3/uL Normal 1.00-4.8 [facility] Comment on above: Performed By: #### C MP, LDH, PATH SLIDE REV, CBC ####[address] Lymphocytes/100 WBC (Bld) 19.3 % Normal . [facility] Comment on above: Performed By: #### C MP, LDH, PATH SLIDE REV, CBC ####[address] MCH (RBC) [Entitic mass] 31.2 pg Normal 24.7-34.3 [facility] Comment on above: Performed By: #### C MP, LDH, PATH SLIDE REV, CBC ####[address] MCV (RBC) [Entitic vol] 93.4 fL Normal 80-100 T he [facility] Comment on above: Performed By: #### C MP, LDH, PATH SLIDE REV, CBC ####[address] Mean Corpuscular HGB Conc 33.4 g/dL Normal 32.0-35.0 [facility] Comment on above: Performed By: #### C MP, LDH, PATH SLIDE REV, CBC ####[address] Monocytes (Bld) [#/Vol] 0.9 10*3/uL High 0.0-0.8 [facility] Comment on above: Performed By: #### C MP, LDH, PATH SLIDE REV, CBC ####[address] Monocytes/100 WBC (Bld) 8.7 % Normal . [facility] Comment on above: Performed By: #### C MP, LDH, PATH SLIDE REV, CBC ####[address] Neutrophils (Bld) [#/Vol] 7.3 10*3/uL Normal 1.8-7.7 [facility] Comment on above: Performed By: #### C MP, LDH, PATH SLIDE REV, CBC ####[address] Neutrophils/100 WBC (Bld) 68.8 % Normal . [facility] Comment on above: Performed By: #### C MP, LDH, PATH SLIDE REV, CBC ####[address] NRBC% 0.1 /100{WBC} Normal 0-0.5 [facility] Comment on above: Performed By: #### C MP, LDH, PATH SLIDE REV, CBC ####[address] Platelet mean volume (Bld) [Entitic vol] 8.9 fL Normal 6.3-10.[address] [facility] Comment on above: Performed By: #### C MP, LDH, PATH SLIDE REV, CBC ####[address] Platelets (Bld) [#/Vol] 167 10*3/uL Normal 150-450 [facility] Comment on above: Performed By: #### C MP, LDH, PATH SLIDE REV, CBC ####[address] RBC (Bld) [#/Vol] 5.32 10*6/uL High 3.60-5.00 [facility] Group Comment on above: Performed By: #### C MP, LDH, PATH SLIDE REV, CBC ####[address] WBC (Bld) [#/Vol] 10.7 10*3/uL Normal 3.8-11.6 [facility] Comment on above: Performed By: #### C MP, LDH, PATH SLIDE REV, CBC ####[address] Comprehensive Metabolic Pane juan 04-14-2024 Albumin [Mass/Vol] 4.1 g/dL Normal 3.5-5.7 [facility] Comment on above: Performed By: #### C MP, LDH, PATH SLIDE REV, CBC ####[address] Albumin/Globulin [Mass ratio] 1.2 {ratio} Normal [facility] Comment on above: Performed By: #### C MP, LDH, PATH SLIDE REV, CBC ####[address] ALP [Catalytic activity/Vol] 92 U/L Normal 34-104 [facility] Comment on above: Performed By: #### C MP, LDH, PATH SLIDE REV, CBC ####[address] ALT [Catalytic activity/Vol] 20 U/L Normal 7-52 [facility] Comment on above: Performed By: #### C MP, LDH, PATH SLIDE REV, CBC ####[address] Anion gap [Moles/Vol] 16.1 mmol/L High 6.0-15.0 [facility] Comment on above: Performed By: #### C MP, LDH, PATH SLIDE REV, CBC ####[address] AST [Catalytic activity/Vol] 26 U/L Normal 13-39 [facility] Comment on above: Performed By: #### C MP, LDH, PATH SLIDE REV, CBC ####[address] Bilirubin [Mass/Vol] 0.6 mg/dL Normal 0.3-1.0 [facility] Comment on above: Performed By: #### C MP, LDH, PATH SLIDE REV, CBC ####[address] Calcium [Mass/Vol] 10.0 mg/dL Normal 8.6-10.3 [facility] Comment on above: Performed By: #### C MP, LDH, PATH SLIDE REV, CBC ####[address] Chloride [Moles/Vol] 101 mmol/L Normal 98-107 [facility] Comment on above: Performed By: #### C MP, LDH, PATH SLIDE REV, CBC ####[address] CO2 [Moles/Vol] 26.9 mmol/L Normal 21.0-31.0 The [facility] Comment on above: Performed By: #### C MP, LDH, PATH SLIDE REV, CBC ####[place] [id number] [facility] Creatinine [Mass/Vol] 0.83 mg/dL Normal 0.60-1.20 [facility] Comment on above: Performed By: #### C MP, LDH, PATH SLIDE REV, CBC ####[place] [id number] [facility] Creatinine Clr Calc Pharmacy 78.05 Normal [facility] Comment on above: Performed By: #### C MP, LDH, PATH SLIDE REV, CBC ####[place] [id number] [facility] GFR/1.73 sq M.predicted MDRD (S/P/Bld) [Vol rate/Area] mL/min/{1.73_m2} Normal [facility] Comment on above: Performed By: #### C MP, LDH, PATH SLIDE REV, CBC ####[place] [id number] [facility] Globulin (S) [Mass/Vol] 3.3 g/dL Normal T he [facility] Comment on above: Performed By: #### C MP, LDH, PATH SLIDE REV, CBC ####[place] [id number] [facility] Glucose [Mass/Vol] 169 mg/dL High 70-100 [facility] Comment on above: Result Comment: [facility] Glucose Reference Range is dependent on time and content of last meal. Glucose of more than 200 mg/dL in a nonstressed, ambulatory subject supports the diagnosis of Diabetes Mellitus. ADA recommended reference range Performed By: #### C MP, LDH, PATH SLIDE REV, CBC ####[place] [id number] [facility] Potassium [Moles/Vol] 4.0 mmol/L Normal 3.5-5.1 [facility] Comment on above: Performed By: #### C MP, LDH, PATH SLIDE REV, CBC ####[place] [id number] [facility] Protein [Mass/Vol] 7.4 g/dL Normal 6.4-8.9 [facility] Comment on above: Performed By: #### C MP, LDH, PATH SLIDE REV, CBC ####[place] [id number] [facility] Sodium [Moles/Vol] 140 mmol/L Normal 136-145 [facility] Comment on above: Performed By: #### C MP, LDH, PATH SLIDE REV, CBC ####[place] [id number] [facility] Urea nitrogen [Mass/Vol] 8 mg/dL Normal 7-25 [facility] Comment on above: Performed By: #### C MP, LDH, PATH SLIDE REV, CBC ####[address] [address] [facility] Comprehensive metabolic pane juan 04-14-2024 Albumin [Mass/Vol] 4.1 g/dL 3.5 - 5.7 g/dL [facility] Albumin/Globulin [Mass ratio] 1.2 {ratio} [facility] ALP [Catalytic activity/Vol] 92 U/L 34 - 104 U/L [facility] ALT [Catalytic activity/Vol] 20 U/L 7 - 52 U/L [facility] Anion gap [Moles/Vol] 16.1 mmol/L High 6.0 - 15.0 meq/L [facility] AST [Catalytic activity/Vol] 26 U/L 13 - 39 U/L [facility] Bilirubin [Mass/Vol] 0.6 mg/dL 0.3 - 1 .0 mg/dL [facility] Calcium [Mass/Vol] 10 mg/dL 8.6 - 10. 3 mg/dL [facility] Chloride [Moles/Vol] 101 mmol/L 98 - 10 7 mmol/L [facility] CO2 [Moles/Vol] 26.9 mmol/L 21.0 - 31.0 mmol/L [facility] Creatinine (U) [Mass/Vol] 0.83 mg/dL 0.60 - 1.20 mg/dL [facility] CREATININE CLR CALC PHARMACY 78.05 [facility] ESTIMATED GFR mL/Min [facility] Globulin (S) [Mass/Vol] 3.3 g/dL N [facility] Glucose [Mass/Vol] 169 mg/dL High 70 - 100 mg/dL [facility] Comment on above: Random Glucose Refer ence Range is dependent on time and content of last meal. Glucose of more than 200 mg/dL in a nonstressed, ambulatory subject supports the diagnosis of Diabetes Mellitus. ADA recommended reference range Interpretation and review of laboratory results Abnormal [facility] Potassium [Moles/Vol] 4 mmol/L 3.5 - 5.1 mmol/L [facility] Protein [Mass/Vol] 7.4 g/dL 6.4 - 8.9 g/dL [facility] Sodium [Moles/Vol] 140 mmol/L 136 - 145 mmol/L [facility] Urea nitrogen [Mass/Vol] 8 mg/dL 7 - 25 mg/dL [facility] Creatinine [Mass/volume] in Serum or PlasmaOrdered By: Nataliya Jane on 04-14-2024 Creatinine [Mass/Vol] Creatinine [Mass/v olume] in Serum or Plasma 0.60-1.20 [facility] Globulin Calc (S) [Mass/Vol] Ordered By: Nataliya Jane on 04-14-2024 Globulin (S) [Mass/Vol] Serum globulin measurement by calculation (mass/volume) [facility] Glucose [Mass/volume] in Ser um or PlasmaOrdered By: Nataliya Jane on 04-14-2024 Glucose [Mass/Vol] Glucose [Mass/volume ] in Serum or Plasma High 70-100 [facility] Comment on above: ADA recommended refe rence rangeRandom Glucose Reference Range is dependent on time and content of last meal. Glucose of more than 200 mg/dL in a nonstressed, ambulatory subject supports the diagnosis of Diabetes Mellitus. Juan 04-14-2024 L Normal [facility] LDH Lactate Dehydrogenaseon 04-14-2024 LDH Lactate Dehydrogenase 155 U/L Normal 140-271 [facility] Comment on above: Result Comment: PERF ORMED BY:[id number] [place] [address] [place], [place] [phone] MEDICAL DIRECTORLE MACE M.D. Performed By: #### C MP, LDH, PATH SLIDE REV, CBC ####[facility] [place] [address] [facility] LDH Lactate to pyruvate reac tion [Catalytic activity/Vol]on 04-14-2024 LDH LACTATE DEHYDROGENASE 155 U/L 140 - 271 U/L [facility] Lactate dehydrogenase [Enzym atic activity/volume] in Serum or Plasma by Lactate to pyOrdered By: Nataliya Jane on 04-14-2024 LDH Lactate to pyruvate reaction [Catalytic activity/Vol] Lactate dehydrogenase [Enzymatic activity/volume] in Serum or Plasma by Lactate to py 140-271 [facility] No Panel Informationon 04-14 [facility] No Panel InformationOrdered By: Nataliya Jane on 04-14-2024 Estimated GFR (CKD-EPI) > 60.0 mL/Min [facility] Pharmacy Creatinine Clearance (Chem 78.05 [facility] Slides for Pathologist Review Ordered path review [facility] PATHOLOGIST SLIDE REVIEW (FR MC)on 04-14-2024 PATHOLOGIST SLIDE REVIEW Ordered Path Review [facility] Pathologist Slide Reviewon 1 2-17-2024 Pathologist Slide Review Ordered Path Review Normal [facility] Comment on above: Result Comment: PERF ORMED BY:[facility] [place], [place] [id number] MEDICAL DIRECTORMOKEVIN MACE M.D. Performed By: #### C MP, LDH, PATH SLIDE REV, CBC ####[facility] [place] [address] [facility] Potassium [Moles/volume] in Serum or PlasmaOrdered By: Nataliya Jane on 04-14-2024 Potassium [Moles/Vol] Potassium [Moles/v olume] in Serum or Plasma 3.5-5.1 [facility] Protein [Mass/volume] in Ser um or PlasmaOrdered By: Nataliya Jane on 04-14-2024 Protein [Mass/Vol] Protein [Mass/volume ] in Serum or Plasma 6.4-8.9 [facility] Serum or plasma albumin/glob ulin mass ratioOrdered By: Nataliya Jane on 04-14-2024 Albumin/Globulin [Mass ratio] Serum or plasma albumin/globulin mass ratio [facility] Serum or plasma anion gap de terminationOrdered By: Nataliya Jane on 04-14-2024 Anion gap [Moles/Vol] Serum or plasma an ion gap determination High 6.0-15.0 [facility] Sodium [Moles/volume] in Ser um or PlasmaOrdered By: Nataliya Jane on 04-14-2024 Sodium [Moles/Vol] Sodium [Moles/volume ] in Serum or Plasma 136-145 [facility] Urea nitrogen [Mass/volume] in Serum or PlasmaOrdered By: Nataliya Jane on 04-14-2024 Urea nitrogen [Mass/Vol] Urea nitrogen [Mass/volume] in Serum or Plasma 7-25 [facility] ECG 12 Leadon 03-25-2024 Normal sinus rhythm [facility] Work Phone: [facility] Work Phone: Aerobic cultureOrdered By: Vamsi Fritz on 01-07-2024 Bacteria identified Aer cx Nom (Unsp spec) [facility] Superficial Wound Cultureon 01-07-2024 Superficial Wound Culture Plantar right foot Result Tab Codes Light Normal Skin Erna 2 Days PERFORMED BY: [facility] [address] [place] [address] PATHOLOGIST FLUME WORKER SADAF STANTON M.D. Normal [facility] Comment on above: Performed By: #### C USUP ####[facility] [id number] [place] [address] [facility] US venous duplex LE BIon US venous duplex LE BI Normal Th e [facility] XR pre/post mri xrayon 12-16 XR pre/post mri xray Normal [facility] ECG 12 Leadon 12-16-2023 [facility] Work Phone: Normal sinus rhythm [facility] Work Phone: ANAon 12-07-2023 ANTINUCLEAR ABS, IFA Positive Critically abnormal . [facility] Comment on above: Negative <1:80 Borderline 1:80 Positive >1:80 Interpretation and review of laboratory results Abnormal [facility] Healthcare NOTE 1 Comment . [facility] Comment on above: Pattern Potential Di sease Association Homogeneous Systemic Lupus Erythematosus, Drug Induced Systemic Lupus Erythematosus, Chronic Autoimmune hepatitis, Juvenile Idiopathic Arthritis Speckled Sjogren Syndrome, Systemic Lupus Erythematosus, Subacute Cutaneous Lupus, Lupus, Congenital Heart Block, Mixed Connective Tissue Disease, Scleroderma-diffuse, Scleroderma-Autoimmune Myositis Overlap Syndrome, Systemic Lupus Infjzjrflgqic-Vnfbexuieyu-Pjazrxedrj Myositis Overlap Syndrome, Systemic Autoimmune Rheumatic Disease, [...] Cytopenias, Linear Scleroderma, Antiphospholipid Syndrome Performed at: [address] [id number] Glass Carrier: Yuri Osullivan PhD, Phone: [phone] SPECKLED PATTERN 1:320 High . [facility] Comment on above: ICAP nomenclature: A C-2,4,5,29 ANCA PROFILE (ANCA+MPO+PR3)o n 12-07-2023 ANTIMYELOPEROXIDASE (MPO) ABS <0.2 0.0 - 0.9 [facility] ATYPICAL PANCA <1:20 Neg:<1:20 [facility] Comment on above: The atypical pANCA p attern has been observed in a significant percentage of patients with ulcerative colitis, primary sclerosing cholangitis and autoimmune hepatitis. Performed at: [facility] Lab[address] [id number] Glass Carrier: Christine Pham MD, Phone: [phone] Performed at: [facility] [id number] Glass Carrier: Yuri Osullivan PhD, Phone: [phone] CYTOPLASMIC (C-ANCA) <1:20 Neg:<1:20 [facility] PERINUCLEAR (P-ANCA) <1:20 Neg:<1:20 [facility] Comment on above: The presence of posi tive fluorescence exhibiting P-ANCA or C-ANCA patterns alone is not specific for the diagnosis of Marni's Granulomatosis (WG) or microscopic polyangiitis. Decisions about treatment should not be based solely on ANCA IFA results. The International ANCA Group Consensus recommends follow up testing of positive sera with both CT- 3 and MPO-ANCA enzyme immunoassays. As many as 5% serum samples are positive only by EIA. Ref. AM J Clin Pathol 1999;111:507-513. PROTEINASE 3 (PR3) ANTIBODIES <0.2 0.0 - 0.9 [facility] ANTI-CENTROMERE B ANTIBODIES on 12-07-2023 ANTI-CENTROMERE B ANTIBODIES <0.2 0.0 - 0.9 [facility] Comment on above: Performed at: [address] [id number] Glass Carrier: Yuri Osullivan PhD, Phone: [phone] ANTI-DSDNA(DBL)ABon 12-07-19 24 ANTI-DSDNA(DBL)AB 1 0 - 9 [facility] Comment on above: Negative <5 Equivocal 5 - 9 Positive >9 ANTI-RNPon 12-07-2023 ANTI-BASE REMOVER 0.3 0.0 - 0.9 [facility] ANTIRIBOSOMAL P ANTIBODIESon 12-07-2023 ANTIRIBOSOMAL P ANTIBODIES <0.2 0.0 - 0.9 [facility] Anti-Fritz antibodyon 2023 ANTI-FRITZ ANTIBODIES <0.2 0.0 - 0.9 [facility] HISTONE ANTIBODIESon 024 HISTONE ANTIBODIES 0.6 0.0 - 0.9 [facility] Comment on above: Negative <1.0 Weak Positive 1.0 - 1.5 Moderate Positive 1.6 - 2.5 Strong Positive >2.5 Performed at: [address] [id number] Glass Carrier: Christine Pham MD, Phone: [phone] SUSHMA-1 ANTIBODYon 12-07-2023 SUSHMA-1 ANTIBODY <0.2 0.0 - 0.9 [facility] Mitochondrial antibodies, M2 on 12-07-2023 MITOCHONDRIAL (M2) ANTIBODY <20.0 0.0 - 20.0 [facility] Comment on above: Negative 0.0 - 20.0 Equivocal 20.1 - 24.9 Positive >24.9 Mitochondrial (M2) Antibodies are found in 90-96% of patients with primary biliary cirrhosis. Performed at: [address] [id number] Glass Carrier: Yuri Osullivan PhD, Phone: [phone] No Panel Informationon 12-06 [facility] SCLERODERMA 70 ANTIBODIESon 12-07-2023 SCLERODERMA 70 ANTIBODIES <0.2 0.0 - 0.9 [facility] SJOGRENS ANTI-SSA/SSBon 11-27 SS-A/RO SJOGRENS ANTIBODY <0.2 0.0 - 0.9 [facility] SS-B/LA SJOGRENS ANTIBODY <0.2 0.0 - 0.9 [facility] SRP AUTOANTIBODIESon 024 SRP (SIGNAL RECOG. PARTICLE) Negative Negative [facility] Comment on above: This test was develo ped and its performance characteristics determined by [facility]. It has not been cleared or approved by the Food and Drug Administration. Performed at: [place] [address] [place] [id number] Glass Carrier: Juan Crzu MD, Phone: [phone] Alanine aminotransferase [En zymatic activity/volume] in Serum or PlasmaOrdered By: Tolu Salinas on 12-02-2023 ALT [Catalytic activity/Vol] 31 U/L Normal 7-52 [facility] Comment on above: Performed By: #### C MP, MG ####[place] [address] [place] [id number] [facility] Albumin [Mass/volume] in Ser um or Plasma by Bromocresol green (BCG) dye binding methoOrdered By: Tolu Rita on 12-02-2023 Albumin BCG dye [Mass/Vol] 4.2 g/dL 3.5-5.7 [facility] Alkaline phosphatase [Enzyma tic activity/volume] in Serum or PlasmaOrdered By: Tolu Rita on 12-02-2023 ALP [Catalytic activity/Vol] 75 U/L Normal 34-104 [facility] Comment on above: Performed By: #### C MP, MG ####[place] [address] [place] [id number] [facility] [employer] 12-02-2023 Arsenic 2 Normal 0-9 [facility] Comment on above: Result Comment: This test was developed and its performance characteristics determined by [facility]. It has not been cleared or approved by the Food and Drug Administration. Detection Limit = 1 Performed By: #### H IV SCREEN, LEAD,ADULT, CRYOGLOB, MERCURY, HEPACUTE, C3, THALLIUM, ARSENIC, VITA, ZINC,WB, CERULOP, C4, CU ####[facility] ,#### MISC LAB, LDH ####[place] [address] [place] [id number] [facility] Aspartate aminotransferase [ Enzymatic activity/volume] in Serum or PlasmaOrdered By: Tolu Rita on 12-02-2023 AST [Catalytic activity/Vol] 37 U/L Normal 13-39 [facility] Comment on above: Performed By: #### C MP, MG ####[place] [address] [place] [address] [facility] Basophil percentageOrdered B y: Oz Kincaid on 12-02-2023 Basophil percentage 96 ug/dL 80-158 [facility] Comment on above: This test was develo ped and its performance characteristicsdetermined by [facility]. It has not been cleared orapproved by the Food and Drug Administration. Detection Limit = 5Performed at: [facility] Lab[address] [id number] Director: Christine Pham MD, Phone: [phone] Basophil percentage 2 ug/L 0-9 [facility] Comment on above: This test was develo ped and its performance characteristicsdetermined by [facility]. It has not been cleared orapproved by the Food and Drug Administration. Detection Limit = 1 Bilirubin.total [Mass/volume ] in Serum or PlasmaOrdered By: Tolu Salinas on 12-02-2023 Bilirubin [Mass/Vol] 0.4 mg/dL Normal 0.3-1.0 [facility] Comment on above: Performed By: #### C MP, MG ####[facility] [id number] Blood lead detectionOrdered By: Oz Kincaid on 12-02-2023 Lead Ql (Bld) <1.0 ug/dL 0.0-3.4 [facility] Comment on above: Testing performed by Inductively coupled plasma/MassSpectrometry.Analysis by inductively coupled plasma/massspectrometry (ICP/MS)This test was developed and its performance characteristicsdetermined by [facility]. It has not been cleared orapproved by the Food and Drug Administration. Environmental Exposure: WHO Recommendation <5.0 Occupational Exposure: OSHA Lead Std 40.0 BOB 30.0 Detection Limit = 1.0Performed at: [facility] [employer] [id number] Director: Yuri Osullivan PhD, Phone: [phone] Blood mercury measurement (m ass/volume)Ordered By: Oz Kincaid on 12-02-2023 Mercury (Bld) [Mass/Vol] <1.0 ug/L 0.0-14.9 [facility] Comment on above: This test was develo ped and its performance characteristicsdetermined by [facility]. It has not been cleared orapproved by the Food and Drug Administration. Detection Limit = 1.0Performed at: [facility] [employer] [id number] Director: Christine Pham MD, Phone: [phone] Calcium [Mass/volume] in Ser um or PlasmaOrdered By: Tolu Salians on 12-02-2023 Calcium [Mass/Vol] 9.9 mg/dL Normal 8.6-10.3 [facility] Comment on above: Performed By: #### C MP, MG ####[place] [id number] [facility] Carbon dioxide, total [Moles /volume] in Serum or PlasmaOrdered By: Tolu Salinas on 12-02-2023 CO2 [Moles/Vol] 32.0 mmol/L High 21.0-31.0 [facility] Comment on above: Performed By: #### C MP, MG ####[place] [id number] [facility] Ceruloplasminon 12-02-2023 Ceruloplasmin 26.8 mg/dL Normal 19.0-39.0 [facility] Comment on above: Result Comment: Perf ormed at: [facility] [employer] [id number] Glass Carrier: Yuri Osullivan PhD, Phone: [phone] BY:[address] [place], [place] [phone] MEDICAL DIRECTORSADAF STANTON M.D. Performed By: #### H IV SCREEN, LEAD,ADULT, CRYOGLOB, MERCURY, HEPACUTE, C3, THALLIUM, ARSENIC, VITA, ZINC,WB, CERULOP, C4, CU ####[facility] ,#### MISC LAB, LDH ####[place] [id number] [facility] Chloride [Moles/volume] in S elliot or PlasmaOrdered By: Tolu Salinas on 12-02-2023 Chloride [Moles/Vol] 103 mmol/L Normal 98-107 [facility] Comment on above: Performed By: #### C MP, MG ####[place] [id number] [facility] Complement C3on 12-02-2023 Complement C3 147 mg/dL Normal 82-167 [facility] Comment on above: Result Comment: Perf ormed at: [facility] - [address] [id number] Glass Carrier: Yuri Osullivan PhD, Phone: [phone] Performed By: #### H IV SCREEN, LEAD,ADULT, CRYOGLOB, MERCURY, HEPACUTE, C3, THALLIUM, ARSENIC, VITA, ZINC,WB, CERULOP, C4, CU ####[facility] ,#### MISC LAB, LDH ####[address] Complement C4on 12-02-2023 Complement C4 32 mg/dL Normal 12-38 [facility] Comment on above: Performed By: #### H IV SCREEN, LEAD,ADULT, CRYOGLOB, MERCURY, HEPACUTE, C3, THALLIUM, ARSENIC, VITA, ZINC,WB, CERULOP, C4, CU ####[facility] ,#### MISC LAB, LDH ####[address] Comprehensive Metabolic Pane juan 12-02-2023 Albumin [Mass/Vol] 4.2 g/dL Normal 3.5-5.7 [facility] Comment on above: Performed By: #### C MP, MG ####[address] GFR/1.73 sq M.predicted MDRD (S/P/Bld) [Vol rate/Area] mL/min/{1.73_m2} Normal [facility] Comment on above: Performed By: #### C MP, MG ####[place] [id number] [facility] Copperon 12-02-2023 Copper 96 ug/dL Normal 80-158 [facility] Comment on above: Result Comment: This test was developed and its performance characteristics determined by [facility]. It has not been cleared or approved by the Food and Drug Administration. Detection Limit = 5 Performed at: [address] [id number] Glass Carrier: Christine Pham MD, Phone: [phone] Performed By: #### H IV SCREEN, LEAD,ADULT, CRYOGLOB, MERCURY, HEPACUTE, C3, THALLIUM, ARSENIC, VITA, ZINC,WB, CERULOP, C4, CU ####[facility] ,#### MISC LAB, LDH ####[place] [address] [place] [id number] [facility] Creatinine [Mass/volume] in Serum or PlasmaOrdered By: Tolu Salinas on 12-02-2023 Creatinine [Mass/Vol] 0.97 mg/dL Normal 0.60-1.20 [facility] Comment on above: Performed By: #### C MP, MG ####[place] [address] [place] [address] [facility] Cryoglobulin with Quant Refl exon 12-02-2023 Cryoglobulin, Ql, Serum Comment Normal None detected [facility] Comment on above: Result Comment: None Detected at 72 hours This test was developed and its performance characteristics determined by [facility]. It has not been cleared or approved by the Food and Drug Administration. Performed at: [address] [id number] Glass Carrier: Yuri Osullivan PhD, Phone: [phone] Performed By: #### H IV SCREEN, LEAD,ADULT, CRYOGLOB, MERCURY, HEPACUTE, C3, THALLIUM, ARSENIC, VITA, ZINC,WB, CERULOP, C4, CU ####[facility] ,#### MISC LAB, LDH ####[place] [address] [place] [id number] [facility] Glucose [Mass/volume] in Ser um or PlasmaOrdered By: Tolu Salinas on 12-02-2023 Glucose [Mass/Vol] 114 mg/dL High 70-100 [facility] Comment on above: ADA recommended refe rence rangeRandom Glucose Reference Range is dependent on time and content of last meal. Glucose of more than 200 mg/dL in a nonstressed, ambulatory subject supports the diagnosis of Diabetes Mellitus. Result Comment: [place] Glucose Reference Range is dependent on time and content of last meal. Glucose of more than 200 mg/dL in a nonstressed, ambulatory subject supports the diagnosis of Diabetes Mellitus. ADA recommended reference range Performed By: #### C MP, MG ####[place] [facility] [address] HIV 1/O/2 Antigen/Antibodyon 12-02-2023 HIV Screen 4th Generation Non-Reactive Normal Non Reactive [facility] Comment on above: Result Comment: HIV- 1/HIV-2 antibodies and HIV-1 p24 antigen were NOT detected. There is no laboratory evidence of HIV infection. HIV Negative Performed at: [facility] [id number] Glass Carrier: Yuri Osullivan PhD, Phone: [phone] Performed By: #### H IV SCREEN, LEAD,ADULT, CRYOGLOB, MERCURY, HEPACUTE, C3, THALLIUM, ARSENIC, VITA, ZINC,WB, CERULOP, C4, CU ####[facility] ,#### MISC LAB, LDH ####[place] [address] [address] HIV 1 and HIV-2 antibody ass ay with HIV-1 p24 antigen detectionOrdered By: Oz Kincaid on 12-02-2023 HIV 1+2 Ab+HIV1 p24 Ag IA Ql Non-Reactive Non Reactive [facility] Comment on above: HIV-1/HIV-2 antibodi es and HIV-1 p24 antigen were NOTdetected. There is no laboratory evidence of HIV infection.HIV NegativePerformed at: [facility] [id number] Director: Yuri Osullivan PhD, Phone: [phone] Hepatitis Acute Panelon HBsAg Screen Negative Normal Negative [facility] Comment on above: Performed By: #### H IV SCREEN, LEAD,ADULT, CRYOGLOB, MERCURY, HEPACUTE, C3, THALLIUM, ARSENIC, VITA, ZINC,WB, CERULOP, C4, CU ####[facility] ,#### MISC LAB, LDH ####[place] [address] Hepatitis A Antibody IgM Negative Normal Negative [facility] Comment on above: Performed By: #### H IV SCREEN, LEAD,ADULT, CRYOGLOB, MERCURY, HEPACUTE, C3, THALLIUM, ARSENIC, VITA, ZINC,WB, CERULOP, C4, CU ####[facility] ,#### MISC LAB, LDH ####[address] Hepatitis B Core Antibody IgM Negative Normal Negative [facility] Comment on above: Performed By: #### H IV SCREEN, LEAD,ADULT, CRYOGLOB, MERCURY, HEPACUTE, C3, THALLIUM, ARSENIC, VITA, ZINC,WB, CERULOP, C4, CU ####[facility] ,#### MISC LAB, LDH ####[address] Hepatitis C Virus Antibody Non-Reactive Normal Non Reactive [facility] Comment on above: Performed By: #### H IV SCREEN, LEAD,ADULT, CRYOGLOB, MERCURY, HEPACUTE, C3, THALLIUM, ARSENIC, VITA, ZINC,WB, CERULOP, C4, CU ####[facility] ,#### MISC LAB, LDH ####[address] Interpretation Hepatitis C Comment Normal . [facility] Comment on above: Result Comment: Not infected with HCV unless early or acute infection is suspected (which may be delayed in an immunocompromised individual), or other evidence exists to indicate HCV infection. Performed at: - [facility] [address] [id number] Glass Carrier: Yuri Osullivan PhD, Phone: [phone] BY:[address] [place], [place] [phone] MEDICAL DIRECTORSADAF STANTON M.D. Performed By: #### H IV SCREEN, LEAD,ADULT, CRYOGLOB, MERCURY, HEPACUTE, C3, THALLIUM, ARSENIC, VITA, ZINC,WB, CERULOP, C4, CU ####[facility] ,#### MISC LAB, LDH ####[place] [address] [place] [address] [facility] Hepatitis B virus surface Ag [Presence] in Serum or Plasma by ImmunoassayOrdered By: Oz Kincaid on 12-02-2023 HBV surface Ag IA Ql Negative Negative [facility] Hepatitis C virus IgG Ab [Pr esence] in Serum or Plasma by ImmunoassayOrdered By: Oz iKncaid on 12-02-2023 HCV IgG IA Ql Non-Reactive Non Reactive [facility] Hepatitis C virus RNA [Units /volume] (viral load) in Serum or Plasma by TEJINDER with probOrdered By: Oz Kincaid on 12-02-2023 HCV RNA TEJINDER+probe Qn N/A [facility] Hepatitis C virus RNA [log u nits/volume] (viral load) in Serum or Plasma by TEJINDER withOrdered By: Oz Kincaid on 12-02-2023 HCV RNA TEJINDER+probe [Log units/Vol] N/A [facility] LDH Lactate Dehydrogenaseon 12-02-2023 LDH Lactate Dehydrogenase 156 U/L Normal 140-271 [facility] Comment on above: Result Comment: PERF ORMED BY:[address] [place], [place] [phone] MEDICAL DIRECTORSADAF STANTON M.D. Performed By: #### H IV SCREEN, LEAD,ADULT, CRYOGLOB, MERCURY, HEPACUTE, C3, THALLIUM, ARSENIC, VITA, ZINC,WB, CERULOP, C4, CU ####[facility] ,#### MISC LAB, LDH ####[place] [address] [place] [address] [facility] Lactate dehydrogenase [Enzym atic activity/volume] in Serum or Plasma by Lactate to pyOrdered By: Oz Kincaid on 12-02-2023 LDH Lactate to pyruvate reaction [Catalytic activity/Vol] 156 U/L 140-271 [facility] Lead, Adulton 12-02-2023 Lead-Adult Blood <1.0 Normal 0.0-3.4 [facility] Comment on above: Result Comment: Test ing performed by Inductively coupled plasma/Mass Spectrometry. Analysis by inductively coupled plasma/mass spectrometry (ICP/MS) This test was developed and its performance characteristics determined by [facility]. It has not been cleared or approved by the Food and Drug Administration. Environmental Exposure: WHO Recommendation <5.0 Occupational Exposure: OSHA Lead Std 40.0 BOB 30.0 Detection Limit = 1.0 Performed at: [address] [id number] Glass Carrier: Yuri Osullivan PhD, Phone: [phone] Performed By: #### H IV SCREEN, LEAD,ADULT, CRYOGLOB, MERCURY, HEPACUTE, C3, THALLIUM, ARSENIC, VITA, ZINC,WB, CERULOP, C4, CU ####[facility] ,#### MISC LAB, LDH ####[place] [id number] [facility] MISC LABon 12-02-2023 MISC LAB Normal [facility] Comment on above: Order Comment: [facility] Test Name: MOTOR AND SENSORY NEUROPATHY PANEL WITH REFLEX TO ARUP [id number] Result Comment: See report. Scanned copy available in EMR.PERFORMED BY:[address] [place], [place] [phone] MEDICAL DIRECTORSADAF STANTON M.D. Performed By: #### H IV SCREEN, LEAD,ADULT, CRYOGLOB, MERCURY, HEPACUTE, C3, THALLIUM, ARSENIC, VITA, ZINC,WB, CERULOP, C4, CU ####[facility] ,#### MISC LAB, LDH ####[place] [id number] [facility] MIS LABon 12-02-2023 MISC2 LAB Normal [facility] Comment on above: Order Comment: [facility] Test Name: [place] URINE RANDOM [place] [id number] Result Comment: See report. Scanned copy available in EMR.PERFORMED BY:[address] [place], [place] [phone] MEDICAL DIRECTORSADAF STANTON M.D. Performed By: #### M ISC2 LAB ####[facility] [place] [address] [facility] Magnesium [Mass/volume] in S elliot or PlasmaOrdered By: Tolu Salinas on 12-02-2023 Magnesium [Mass/Vol] 2.0 mg/dL Normal 1.9-2.7 [facility] Comment on above: Result Comment: PERF ORMED BY:[address] [place], [place] [phone] MEDICAL DIRECTORSADAF STANTON M.D. Performed By: #### C MP, MG ####[facility] [place] [address] [facility] Mercury Bloodon 12-02-2023 Mercury, Blood <1.0 Normal 0.0-14.9 [facility] Comment on above: Result Comment: This test was developed and its performance characteristics determined by [facility]. It has not been cleared or approved by the Food and Drug Administration. Detection Limit = 1.0 Performed at: [facility] [employer] [id number] Glass Carrier: Christine Pham MD, Phone: [phone] Performed By: #### H IV SCREEN, LEAD,ADULT, CRYOGLOB, MERCURY, HEPACUTE, C3, THALLIUM, ARSENIC, VITA, ZINC,WB, CERULOP, C4, CU ####[facility] ,#### MISC LAB, LDH ####[place] [address] [place] [address] [facility] No Panel InformationOrdered By: Oz Kincaid on 12-02-2023 Miscellaneous Test 2 See comment F[facility] Comment on above: See report. Scanned copy available in EMR. Hepatitis A IgM Antibody Negative Negative [facility] Hepatitis B Core IgM Antibody Negative Negative [facility] Hepatitis C Interpretation Comment . [facility] Comment on above: Not infected with HC V unless early or acute infection issuspected (which may be delayed in an immunocompromisedindividual), or other evidence exists to indicate HCVinfection.Performed at: [facility] [employer] [id number] Director: Yuri Osullivan PhD, Phone: [phone] Miscellaneous Test See comment [facility] Comment on above: See report. Scanned copy available in EMR. Whole Blood Zinc 768 ug/dL 440-860 [facility] Comment on above: This test was develo ped and its performance characteristicsdetermined by [facility]. It has not been cleared orapproved by the Food and Drug Administration.Performed at: [facility] [employer] [id number] Director: Christine Pham MD, Phone: [phone] No Panel InformationOrdered By: Tolu Salinas on 12-02-2023 Estimated GFR (CKD-EPI) > 60.0 mL/Min [facility] Creatinine Clearance (Chem N/A [facility] Potassium [Moles/volume] in Serum or PlasmaOrdered By: Tolu Salinas on 12-02-2023 Potassium [Moles/Vol] 4.5 mmol/L Normal 3.5-5.1 [facility] Comment on above: Performed By: #### C MP, MG ####[facility] [address] Protein [Mass/volume] in Ser um or PlasmaOrdered By: Tolu Salinas on 12-02-2023 Protein [Mass/Vol] 6.9 g/dL Normal 6.4-8.9 [facility] Comment on above: Performed By: #### C MP, MG ####[facility] [id number] [place] [id number] [facility] Serum angiotensin converting enzyme (VITA) measurementOrdered By: Oz Kincaid on 12-02-2023 Angiotensin converting enzyme [Catalytic activity/Vol] 53 U/L Normal 14-82 [facility] Comment on above: Performed at: [facility] - [facility] velazquez [address] [id number] Director: Yuri Osullivan PhD, Phone: [phone] Result Comment: Perf ormed at: - [facility] [place] [id number] [place], [place] [id number] Glass Carrier: Yuri Osullivan PhD, Phone: [phone] Performed By: #### H IV SCREEN, LEAD,ADULT, CRYOGLOB, MERCURY, HEPACUTE, C3, THALLIUM, ARSENIC, VITA, ZINC,WB, CERULOP, C4, CU ####[facility] ,#### MISC LAB, LDH ####[address] Serum cryoglobulin detection Ordered By: Oz Kincaid on 12-02-2023 Cryoglobulin Ql (S) Comment None detected [facility] Comment on above: None Detected at 72 hoursThis test was developed and its performance characteristicsdetermined by [facility]. It has not been cleared orapproved by the Food and Drug Administration.Performed at: [facility] [employer] [id number] Director: Yuri Osullivan PhD, Phone: [phone] Serum globulin measurement b y calculation (mass/volume)Ordered By: Tolu Salinas on 12-02-2023 Globulin (S) [Mass/Vol] 2.7 g/dL Normal [facility] Comment on above: Performed By: #### C MP, MG ####[address] Serum or plasma albumin/glob ulin mass ratioOrdered By: Tolu Salinas on 12-02-2023 Albumin/Globulin [Mass ratio] 1.6 {ratio} Normal [facility] Comment on above: Performed By: #### C MP, MG ####[address] Serum or plasma anion gap de terminationOrdered By: Tolu Salinas on 12-02-2023 Anion gap [Moles/Vol] 8.5 mmol/L Normal 6.0-15.0 [facility] Comment on above: Performed By: #### C MP, MG ####[address] Serum or plasma ceruloplasmi n measurement (mass/volume)Ordered By: Oz Kincaid on 12-02-2023 Ceruloplasmin [Mass/Vol] 26.8 mg/dL 19.0-39.0 [facility] Comment on above: Performed at: - [facility] [address] [place], [place] [id number] Director: Yuri Osullivan PhD, Phone: [phone] Serum or plasma complement C 3 measurement (mass/volume)Ordered By: Oz Kincaid on 12-02-2023 Complement C3 [Mass/Vol] 147 mg/dL 82-167 [facility] Comment on above: Performed at: [facility] [address] [place], [place] [id number] Director: Yuri Osullivan PhD, Phone: [phone] Serum or plasma complement C 4 measurement (mass/volume)Ordered By: Oz Kincaid on 12-02-2023 Complement C4 [Mass/Vol] 32 mg/dL 12-38 [facility] Sodium [Moles/volume] in Ser um or PlasmaOrdered By: Tolu Salinas on 12-02-2023 Sodium [Moles/Vol] 139 mmol/L Normal 136-145 [facility] Comment on above: Performed By: #### C MP, MG ####[facility] [place] [address] [facility] Thalliumon 12-02-2023 Thallium <1.0 Normal <5.0 [facility] Comment on above: Result Comment: [...] the Food and Drug Administration. Performed at: [employer] [employer] [address] [place] [id number] Glass Carrier: Whitney Arevalo [facility], Phone: [phone] BY:[facility] [place] [address] [place], [place] [phone] MEDICAL DIRECTORSADAF STANTON M.D. Performed By: #### H IV SCREEN, LEAD,ADULT, CRYOGLOB, MERCURY, HEPACUTE, C3, THALLIUM, ARSENIC, VITA, ZINC,WB, CERULOP, C4, CU ####[facility] ,#### MISC LAB, LDH ####[place] [address] [place] [address] [facility] Thallium [Mass/volume] in Se rum or PlasmaOrdered By: Oz Kincaid on 12-02-2023 Thallium [Mass/Vol] <1.0 ng/mL <5.0 [facility] Comment on above: Thallium concentrati ons greater than 300 ng/ml are consistent with acute toxicity. Urine is the preferred specimen for assessment of thallium exposure. Thallium analysis performed by inductively coupled plasma / mass spectrometry (ICP/MS).This test was developed and its performance characteristicsdetermined by [facility]. It has not been cleared or approvedby the Food and Drug Administration.Performed at: [facility] [place] [id number] Director: Whitney Arevalo [facility], Phone: [phone] Urea nitrogen [Mass/volume] in Serum or PlasmaOrdered By: Tolu Salinas on 12-02-2023 Urea nitrogen [Mass/Vol] 11 mg/dL Normal 7-25 [facility] Comment on above: Performed By: #### C MP, MG ####[place] [address] [place] [id number] [facility] Zinc, Whole Bloodon 12-02-19 24 Zinc, Whole Blood 768 ug/dL Normal 440-860 [facility] Comment on above: Result Comment: This test was developed and its performance characteristics determined by [facility]. It has not been cleared or approved by the Food and Drug Administration. Performed at: - [address] [id number] Glass Carrier: Christine Pham MD, Phone: [phone] Performed By: #### H IV SCREEN, LEAD,ADULT, CRYOGLOB, MERCURY, HEPACUTE, C3, THALLIUM, ARSENIC, VITA, ZINC,WB, CERULOP, C4, CU ####[facility] ,#### MISC LAB, LDH ####[place] [address] [place] [address] [facility] LACTATE AND PYRUVATEon 11-27 Interpretation and review of laboratory results Abnormal [facility] LACTIC ACID, PLASMA 27.1 mg/dL High 4.8 - 25 .7 mg/dL [facility] PYRUVIC ACID, BLOOD 0.7 mg/dL 0.3 - 0. 7 mg/dL [facility] Comment on above: This test was develo ped and its performance characteristics determined by [facility]. It has not been cleared or approved by the Food and Drug Administration. Performed at: - [address] [id number] Glass Carrier: Yuri Osullivan PhD, Phone: [phone] Performed at: [facility] [address] [id number] Glass Carrier: Christine Pham MD, Phone: [phone] [facility] BEATRICE Antinuclear Antibodieson 11-26-2023 Antinuclear Abs, IFA Positive Critically abnormal . [facility] Comment on above: Result Comment: Nega tive <1:80 Borderline 1:80 Positive >1:80 Performed By: #### J O1, MITOM2, ANCA PROF, CENTROME, ANTIR, ANTIRIBOSOMAL P, ADNA, BEATRICE, [id number], SJOGRENS, FRITZ, SRP AUTOABS, HISAB ####[facility] , Note 1 Comment Normal . [facility] Comment on above: Result Comment: Gayatri kaufman Potential Disease Association Homogeneous Systemic Lupus Erythematosus, Drug Induced Systemic Lupus Erythematosus, Chronic Autoimmune hepatitis, Juvenile Idiopathic Arthritis Speckled Sjogren Syndrome, Systemic Lupus Erythematosus, Subacute Cutaneous Lupus, Lupus, Congenital Heart Block, Mixed Connective Tissue Disease, Scleroderma-diffuse, Scleroderma-Autoimmune Myositis Overlap Syndrome, Systemic Lupus Pmqycxhekkama-Idgpamcqaky-Pwwuhnbqog Myositis Overlap Syndrome, Systemic Autoimmune Rheumatic Disease, [...] Cytopenias, Linear Scleroderma, Antiphospholipid Syndrome Performed at: [facility] [address] [id number] Glass Carrier: Yuri Osullivan PhD, Phone: [phone] Performed By: #### J O1, MITOM2, ANCA PROF, CENTROME, ANTIR, ANTIRIBOSOMAL P, ADNA, BEATRICE, [id number], SJOGRENS, FRITZ, SRP AUTOABS, HISAB ####[facility] , Speckled Pattern 1:320 High . [facility] Comment on above: Result Comment: ICAP nomenclature: AC-2,4,5,29 Performed By: #### J O1, MITOM2, ANCA PROF, CENTROME, ANTIR, ANTIRIBOSOMAL P, ADNA, BEATRICE, [id number], SJOGRENS, FRITZ, SRP AUTOABS, HISAB ####[facility] , ANCA Profile (ANCA+MPO+PR3)o n 11-26-2023 Antimyeloperoxidase (MPO) Abs <0.2 Normal 0.0-0.9 [facility] Comment on above: Performed By: #### J O1, MITOM2, ANCA PROF, CENTROME, ANTIR, ANTIRIBOSOMAL P, ADNA, BEATRICE, [id number], SJOGRENS, FRITZ, SRP AUTOABS, HISAB ####[facility] , Atypical pANCA <1:20 Normal Neg:<1:20 [facility] Comment on above: Result Comment: The atypical pANCA pattern has been observed in a significant percentage of patients with ulcerative colitis, primary sclerosing cholangitis and autoimmune hepatitis. Performed at: [address] [id number] Glass Carrier: Christine Pham MD, Phone: [phone] Performed at: [address] [id number] Glass Carrier: Yuri Osullivan PhD, Phone: [phone] Performed By: #### J O1, MITOM2, ANCA PROF, CENTROME, ANTIR, ANTIRIBOSOMAL P, ADNA, BEATRICE, [id number], SJOGRENS, FRITZ, SRP AUTOABS, HISAB ####[facility] , Cytoplasmic (C-ANCA) <1:20 Normal Neg:<1:20 [facility] Comment on above: Performed By: #### J O1, MITOM2, ANCA PROF, CENTROME, ANTIR, ANTIRIBOSOMAL P, ADNA, BEATRICE, [id number], SJOGRENS, FRITZ, SRP AUTOABS, HISAB ####[facility] , Perinuclear (P-ANCA) <1:20 Normal Neg:<1:20 [facility] Comment on above: Result Comment: The presence of positive fluorescence exhibiting P-ANCA or C-ANCA patterns alone is not specific for the diagnosis of Marni's Granulomatosis (WG) or microscopic polyangiitis. Decisions about treatment should not be based solely on ANCA IFA results. The International ANCA Group Consensus recommends follow up testing of positive sera with both CT- 3 and MPO-ANCA enzyme immunoassays. As many as 5% serum samples are positive only by EIA. Ref. AM J Clin Pathol 1999;111:507-513. Performed By: #### J O1, MITOM2, ANCA PROF, CENTROME, ANTIR, ANTIRIBOSOMAL P, ADNA, BEATRICE, [id number], SJOGRENS, FRITZ, SRP AUTOABS, HISAB ####[facility] , Proteinase 3 (PR3) Antibodies <0.2 Normal 0.0-0.9 [facility] Comment on above: Performed By: #### J O1, MITOM2, ANCA PROF, CENTROME, ANTIR, ANTIRIBOSOMAL P, ADNA, BEATRICE, [id number], SJOGRENS, FIRTZ, SRP AUTOABS, HISAB ####[facility] , Anti-Centromere B Antibodies on 11-26-2023 Anti-Centromere B Antibodies <0.2 Normal 0.0-0.9 [facility] Comment on above: Result Comment: Perf ormed at: [facility] [id number] Glass Carrier: Yuri Osullivan PhD, Phone: [phone] Performed By: #### J O1, MITOM2, ANCA PROF, CENTROME, ANTIR, ANTIRIBOSOMAL P, ADNA, BEATRICE, [id number], SJOGRENS, FRITZ, SRP AUTOABS, HISAB ####[facility] , Anti-RNPon 11-26-2023 Anti-BASE REMOVER 0.3 Normal 0.0-0.9 [facility] Comment on above: Performed By: #### J O1, MITOM2, ANCA PROF, CENTROME, ANTIR, ANTIRIBOSOMAL P, ADNA, BEATRICE, [id number], SJOGRENS, FRITZ, SRP AUTOABS, HISAB ####[facility] , Anti-Fritz Antibodieson 10-29 Anti-Fritz Antibodies <0.2 Normal 0.0-0.9 [facility] Comment on above: Performed By: #### J O1, MITOM2, ANCA PROF, CENTROME, ANTIR, ANTIRIBOSOMAL P, ADNA, BEATRICE, [id number], SJOGRENS, FRITZ, SRP AUTOABS, HISAB ####[facility] , Anti-dsDNA(DBL)Abon 11-26-19 24 Anti-dsDNA(DBL)Ab 1 Normal 0-9 [facility] Comment on above: Result Comment: Nega tive <5 Equivocal 5 - 9 Positive >9 Performed By: #### J O1, MITOM2, ANCA PROF, CENTROME, ANTIR, ANTIRIBOSOMAL P, ADNA, BEATRICE, [id number], SJOGRENS, FRITZ, SRP AUTOABS, HISAB ####[facility] , Antiribosomal P Antibodieson 11-26-2023 Antiribosomal P Antibodies <0.2 Normal 0.0-0.9 [facility] Comment on above: Performed By: #### J O1, MITOM2, ANCA PROF, CENTROME, ANTIR, ANTIRIBOSOMAL P, ADNA, BEATRICE, [id number], SJOGRENS, FRITZ, SRP AUTOABS, HISAB ####[facility] , DNA double strand Ab [Units/ volume] in SerumOrdered By: Oz Kincaid on 11-26-2023 DNA double strand Ab Qn (S) 1 [IU]/mL 0-9 [facility] Comment on above: Negative <5 Equivoca l 5 - 9 Positive >9 Histone Antibodieson 024 Histone Antibodies 0.6 Normal 0.0-0.9 [facility] Comment on above: Result Comment: Nega tive <1.0 Weak Positive 1.0 - 1.5 Moderate Positive 1.6 - 2.5 Strong Positive >2.5 Performed at: [facility] [place] [id number] Glass Carrier: Christine Pham MD, Phone: [phone] Performed By: #### J O1, MITOM2, ANCA PROF, CENTROME, ANTIR, ANTIRIBOSOMAL P, ADNA, BEATRICE, [id number], SJOGRENS, FRITZ, SRP AUTOABS, HISAB ####[facility] , SUSHMA-1 Antibodyon 11-26-2023 SUSHMA-1 Antibody <0.2 Normal 0.0-0.9 [facility] Comment on above: Performed By: #### J O1, MITOM2, ANCA PROF, CENTROME, ANTIR, ANTIRIBOSOMAL P, ADNA, BEATRICE, [id number], SJOGRENS, FRITZ, SRP AUTOABS, HISAB ####[facility] , Lactate and Pyruvateon 11-25 Lactic Acid, Plasma 27.1 mg/dL High 4.8-25.7 [facility] Comment on above: Performed By: #### L ACTATE PYRUVAT ####[facility] , Pyruvic Acid, Blood 0.7 mg/dL Normal 0.3-0.7 [facility] Comment on above: Result Comment: This test was developed and its performance characteristics determined by [facility]. It has not been cleared or approved by the Food and Drug Administration. Performed at: [address] [id number] Glass Carrier: Yuri Osullivan PhD, Phone: [phone] Performed at: [address] [id number] Glass Carrier: Christine Pham MD, Phone: [phone] BY:[place] [address] [place], [place] [phone] MEDICAL DIRECTORSADAF STANTON M.D. Performed By: #### L ACTATE PYRUVAT ####[facility] , Mitochondrial (M2) Antibodyo n 11-26-2023 Mitochondrial (M2) Antibody <20.0 Normal 0.0-20.0 [facility] Comment on above: Result Comment: Nega tive 0.0 - 20.0 Equivocal 20.1 - 24.9 Positive >24.9 Mitochondrial (M2) Antibodies are found in 90-96% of patients with primary biliary cirrhosis. Performed at: [address] [id number] Glass Carrier: Yuri Osullivan PhD, Phone: [phone] Performed By: #### J O1, MITOM2, ANCA PROF, CENTROME, ANTIR, ANTIRIBOSOMAL P, ADNA, BEATRICE, [id number], SJOGRENS, FRITZ, SRP AUTOABS, HISAB ####[facility] , Myeloperoxidase Ab [Units/vo lume] in Serum by ImmunoassayOrdered By: Oz Kincaid on 11-26-2023 Myeloperoxidase Ab IA Qn (S) <0.2 units 0.0-0.9 [facility] No Panel InformationOrdered By: Oz Kincaid on 11-26-2023 Anti-Nuclear Antibody Comment 2 Comment . [facility] Comment on above: Pattern Potential Di sease Association Homogeneous Systemic Lupus Erythematosus, Drug Induced Systemic Lupus Erythematosus, Chronic Autoimmune hepatitis, Juvenile Idiopathic Arthritis Speckled Sjogren Syndrome, Systemic Lupus Erythematosus, Subacute Cutaneous Lupus, Lupus, Congenital Heart Block, Mixed Connective Tissue Disease, Scleroderma-diffuse, Scleroderma-Autoimmune Myositis Overlap Syndrome, Systemic Lupus Mmdbedfvxeykn-Qcjfircauqb-Fleijyomey Myositis Overlap Syndrome, Systemic Autoimmune Rheumatic Disease, [...] Cytopenias, Linear Scleroderma, Antiphospholipid Syndrome Performed at: [employer] [id number] Director: Yuri Osullivan PhD, Phone: [phone] Atypical p-ANCA <1:20 titer Neg:<1:20 [facility] Comment on above: The atypical pANCA p attern has been observed in asignificant percentage of patients with ulcerative colitis,primary sclerosing cholangitis and autoimmune hepatitis.Performed at: [address] [id number] Director: Christine Pham MD, Phone: [phone] at: [facility] [employer] [id number] Director: Yuri Osullivan PhD, Phone: [phone] Perinuclear ANCA (p-ANCA) Antibody <1:20 titer Neg:<1:20 [facility] Comment on above: The presence of posi tive fluorescence exhibiting P-ANCA orC-ANCA patterns alone is not specific for the diagnosis ofWegener's Granulomatosis (WG) or microscopic polyangiitis.Decisions about treatment should not be based solely onANCA IFA results. The International ANCA Group Consensusrecommends follow up testing of positive sera with both CT-3 and MPO-ANCA enzyme immunoassays. As many as 5% serumsamples are positive only by EIA. Ref. AM J Clin [id number];111:507-513. Plasma Lactic Acid, Venous 27.1 mg/dL High 4.8-25.7 [facility] Pyruvic Acid 0.7 mg/dL 0.3-0.7 [facility] Comment on above: This test was develo ped and its performance characteristicsdetermined by [facility]. It has not been cleared orapproved by the Food and Drug Administration.Performed at: [employer] [address] [id number] Director: Yuri Osullivan PhD, Phone: [phone] at: [facility] [employer] [id number] Director: Christine Pham MD, Phone: [phone] BASE REMOVER Antibody 0.3 AI 0.0-0.9 [facility] Scl-70 (Scleroderma) Antibody <0.2 AI 0.0-0.9 [facility] Signal Recognition Particle (SRP) Negative Negative [facility] Comment on above: This test was develo ped and its performance characteristicsdetermined by [facility]. It has not been cleared orapproved by the Food and Drug Administration.Performed at: [employer] [address] [id number] Director: Juan Cruz MD, Phone: [phone] Proteinase 3 Ab [Units/volum e] in Serum by ImmunoassayOrdered By: Oz Kincaid on 11-26-2023 Proteinase 3 Ab IA Qn (S) <0.2 units 0.0-0.9 [facility] Ribosomal P Ab [Units/volume ] in SerumOrdered By: Oz Kincaid on 11-26-2023 Ribosomal P Ab Qn (S) <0.2 AI 0.0-0.9 [facility] SRP Autoantibodieson 024 SRP (Signal Recog. Particle) Negative Normal Negative [facility] Comment on above: Result Comment: This test was developed and its performance characteristics determined by [facility]. It has not been cleared or approved by the Food and Drug Administration. Performed at: [employer] [address] [place] [id number] Glass Carrier: Juan Cruz MD, Phone: [phone] BY:[address] [address] [place] AMAT[place]isha[place], [place] [phone] MEDICAL DIRECTORSADAF STANTON M.D. Performed By: #### J O1, MITOM2, ANCA PROF, CENTROME, ANTIR, ANTIRIBOSOMAL P, ADNA, BEATRICE, [id number], SJOGRENS, FRITZ, SRP AUTOABS, HISAB ####[facility] , Scleroderma 70 Antibodieson 11-26-2023 Scleroderma 70 Antibodies <0.2 Normal 0.0-0.9 [facility] Comment on above: Performed By: #### J O1, MITOM2, ANCA PROF, CENTROME, ANTIR, ANTIRIBOSOMAL P, ADNA, BEATRICE, [id number], SJOGRENS, FRITZ, SRP AUTOABS, HISAB ####[facility] , Serum Sushma-1 extractable nucle ar antibody assay (units/volume)Ordered By: Oz Kincaid on 11-26-2023 Sushma-1 extractable nuclear Ab Qn (S) <0.2 AI 0.0-0.9 [facility] Serum Sjogrens syndrome-A ex tractable nuclear antibody assay (units/volume)Ordered By: Oz Kincaid on 11-26-2023 Sjogrens syndrome-A extractable nuclear Ab Qn (S) <0.2 AI 0.0-0.9 [facility] Serum Sjogrens syndrome-B ex tractable nuclear antibody assay (units/volume)Ordered By: Oz Kincaid on 11-26-2023 Sjogrens syndrome-B extractable nuclear Ab Qn (S) <0.2 AI 0.0-0.9 [facility] Serum Fritz extractable nucl ear antigen (ARIELLE) antibody assay (units/volume)Ordered By: Oz Kincaid on 11-26-2023 Fritz extractable nuclear Ab Qn (S) <0.2 AI 0.0-0.9 [facility] Serum centromere protein B a ntibody assay (units/volume)Ordered By: Oz Kincaid on 11-26-2023 Centromere protein B Ab Qn (S) <0.2 AI 0.0-0.9 [facility] Comment on above: Performed at: [employer] [address] [id number] Director: uYri Osullivan PhD, Phone: [phone] Serum classic neutrophil cyt oplasmic antibody titer by immunofluorescenceOrdered By: Oz Kincaid on 11-26-2023 Neutrophil cytoplasmic Ab.classic IF (S) [Titer] <1:20 titer Neg:<1:20 [facility] Serum histone IgG antibody a ssay by immunoassay (units/volume)Ordered By: Oz Kincaid on 11-26-2023 Histone IgG IA Qn (S) 0.6 Units 0.0-0.9 [facility] Comment on above: Negative <1.0 Weak P ositive 1.0 - 1.5 Moderate Positive 1.6 - 2.5 Strong Positive >2.5Performed at: - [facility] [id number] Director: Christine Pham MD, Phone: [phone] Serum homogeneous pattern an tinuclear antibody (BEATRICE) titerOrdered By: Oz Kincaid on 11-26-2023 Homogenous nuclear Ab pattern (S) [Titer] N/A [facility] Serum mitochondria M2 IgG an tibody assay (units/volume)Ordered By: Oz Kincaid on 11-26-2023 Mitochondria M2 IgG Qn (S) <20.0 Units 0.0-20.0 [facility] Comment on above: Negative 0.0 - 20.0 Equivocal 20.1 - 24.9 Positive >24.9Mitochondrial (M2) Antibodies are found in 90-96% ofpatients with primary biliary cirrhosis.Performed at: [address] [id number] Director: Yuri Osullivan PhD, Phone: [phone] Serum nuclear antibody titer Ordered By: Oz Kincaid on 11-26-2023 Nuclear Ab (S) [Titer] Positive Abnormal . [facility] Comment on above: Negative <1:80 Borde rline 1:80 Positive >1:80 Serum speckled pattern antin uclear antibody (BEATRICE) titerOrdered By: Oz Kincaid on 11-26-2023 Speckled nuclear Ab pattern (S) [Titer] 1:320 High . [facility] Comment on above: ICAP nomenclature: A C-2,4,5,29 Sjogrens Anti-SSA/SSBon 10-29 SS-A/Ro Sjogrens Antibody <0.2 Normal 0.0-0.9 [facility] Comment on above: Performed By: #### J O1, MITOM2, ANCA PROF, CENTROME, ANTIR, ANTIRIBOSOMAL P, ADNA, BEATRICE, [id number], SJOGRENS, FRITZ, SRP AUTOABS, HISAB ####[facility] , SS-B/La Sjogrens Antibody <0.2 Normal 0.0-0.9 [facility] Comment on above: Performed By: #### J O1, MITOM2, ANCA PROF, CENTROME, ANTIR, ANTIRIBOSOMAL P, ADNA, BEATRICE, [id number], SJOGRENS, FRITZ, SRP AUTOABS, HISAB ####[facility] , Aspartate aminotransferase [ Enzymatic activity/volume] in Serum or PlasmaOrdered By: Jonas Ch on 11-15-2023 AST [Catalytic activity/Vol] 45 U/L High 13-39 [facility] Comment on above: Performed By: #### B MP, AST, TSH3 ####[facility] [id number] [place] [address] [facility] Basic Metabolic Panelon 10-27 GFR/1.73 sq M.predicted MDRD (S/P/Bld) [Vol rate/Area] mL/min/{1.73_m2} Normal [facility] Comment on above: Performed By: #### B FÉLIX AST, TSH3 ####[place] [id number] [facility] Calcium [Mass/volume] in Ser um or PlasmaOrdered By: Jonas Ch on 11-15-2023 Calcium [Mass/Vol] 10.7 mg/dL High 8.6-10.3 [facility] Comment on above: Performed By: #### B FÉLIX AST, TSH3 ####[place] [id number] [facility] Carbon dioxide, total [Moles /volume] in Serum or PlasmaOrdered By: Jonas Ch on 11-15-2023 CO2 [Moles/Vol] 27.7 mmol/L Normal 21.0-31.0 [facility] Comment on above: Performed By: #### B FÉLIX AST, TSH3 ####[place] [id number] [place] Chloride [Moles/volume] in S elliot or PlasmaOrdered By: Jonas Ch on 11-15-2023 Chloride [Moles/Vol] 102 mmol/L Normal 98-107 [facility] Comment on above: Performed By: #### B FÉLIX AST, TSH3 ####[place] [id number] [facility] Creatinine [Mass/volume] in Serum or PlasmaOrdered By: Jonas Ch on 11-15-2023 Creatinine [Mass/Vol] 1.02 mg/dL Normal 0.60-1.20 [facility] Comment on above: Performed By: #### B FÉLIX AST, TSH3 ####[place] [id number] [place] Creatinine [Mass/volume] in UrineOrdered By: Angelique Russell on 11-15-2023 Creatinine (U) [Mass/Vol] 123.00 mg/dL [facility] Comment on above: No reference range e stablished Glucose [Mass/volume] in Ser um or PlasmaOrdered By: Jonas Ch on 11-15-2023 Glucose [Mass/Vol] 158 mg/dL High 70-100 [facility] Comment on above: ADA recommended refe rence rangeRandom Glucose Reference Range is dependent on time and content of last meal. Glucose of more than 200 mg/dL in a nonstressed, ambulatory subject supports the diagnosis of Diabetes Mellitus. Result Comment: [place] om Glucose Reference Range is dependent on time and content of last meal. Glucose of more than 200 mg/dL in a nonstressed, ambulatory subject supports the diagnosis of Diabetes Mellitus. ADA recommended reference range Performed By: #### B MP, AST, TSH3 ####[address] [address] [facility] MicroAlb Creat Ratio,Uon Creatinine, Urine (Random) 123.00 mg/dL Normal [facility] Comment on above: Result Comment: No r eference range established Performed By: #### U RMACRERAT ####[address] [place] [address] [facility] Microalbumin/Creatinine Ratio 24.4 mg/g Normal 0.0-30.0 [facility] Comment on above: Result Comment: 30-3 00 mg/g indicates an increased risk for diabetic nephropathy. Greater than 300 mg/g is consistent with clinical nephropathy. (Am. J. Kidney Disease 1995, 25:107)PERFORMED BY:[address] [place], [place] [phone] MEDICAL DIRECTORSADAF STANTON M.D. Performed By: #### U RMACRERAT ####[address] [address] [facility] Microalbumin [Mass/volume] i n UrineOrdered By: Angelique Russell on 11-15-2023 Albumin DL <= 20 mg/L (U) [Mass/Vol] 3.0 mg/dL High 0.0-1.8 [facility] Comment on above: Performed By: #### U RMACRERAT ####[address] [address] [facility] No Panel InformationOrdered By: Jonas Ch on 11-15-2023 Estimated GFR (CKD-EPI) > 60.0 mL/Min [facility] Creatinine Clearance (Chem N/A [facility] Potassium [Moles/volume] in Serum or PlasmaOrdered By: Jonas Ch on 11-15-2023 Potassium [Moles/Vol] 4.1 mmol/L Normal 3.5-5.1 [facility] Comment on above: Performed By: #### B MP, AST, TSH3 ####[place] [id number] [facility] Serum or plasma anion gap de terminationOrdered By: Jonas Ch on 11-15-2023 Anion gap [Moles/Vol] 12.4 mmol/L Normal 6.0-15.0 [facility] Comment on above: Performed By: #### B MP, AST, TSH3 ####[place] [id number] [facility] Sodium [Moles/volume] in Ser um or PlasmaOrdered By: Jonas Ch on 11-15-2023 Sodium [Moles/Vol] 138 mmol/L Normal 136-145 [facility] Comment on above: Performed By: #### B MP, AST, TSH3 ####[place] [id number] [facility] Thyrotropin [Units/volume] i n Serum or PlasmaOrdered By: Jonas Ch on 11-15-2023 TSH Qn 3.39 m[IU]/L Normal 0.45-5.33 [facility] Comment on above: Result Comment: PERF ORMED BY:[address] [address] [address] [place], [place] [phone] MEDICAL DIRECTORSADAF STANTON M.D. Performed By: #### B MP, AST, TSH3 ####[place] [id number] [facility] Urea nitrogen [Mass/volume] in Serum or PlasmaOrdered By: Jonas Ch on 11-15-2023 Urea nitrogen [Mass/Vol] 20 mg/dL Normal 7-25 [facility] Comment on above: Performed By: #### B MP, AST, TSH3 ####[address] [place] [address] [facility] Urine microalbumin/creatinin e mass ratioOrdered By: Angelique Russell on 11-15-2023 Albumin/Creatinine DL <= 20 mg/L (U) [Mass ratio] 24.4 mg/g 0.0-30.0 [facility] Comment on above: 30-300 mg/g indicate s an increased risk for diabetic nephropathy. Greater than 300 mg/g is consistent with clinical nephropathy. (Am. J. Kidney Disease 1995, 25:107) No Panel Informationon 11-13 Bedside Glucose 139 [facility] ECG 12 Leadon 11-13-2023 Normal sinus rhythm Normal EKG QTc 457 ms [facility] Work Phone: Automated basophil %Ordered By: Chaka Frye on 11-12-2023 Basophils/100 WBC (Bld) 0.5 % Normal . [facility] Comment on above: Performed By: #### C MG MAURICIO, BMP ####[place] [address] [place] [address] [facility] Automated basophil countOrde red By: Chaka Frye on 11-12-2023 Basophils (Bld) [#/Vol] 0.0 10*3/uL Normal 0.0-0.2 [facility] Comment on above: Result Comment: PERF ORMED BY:[address] [place], [place] [phone] MEDICAL DIRECTORSADAF STANTON M.D. Performed By: #### C MG MAURICIO, BMP ####[place] [address] [place] [address] [facility] Automated blood monocyte cou ntOrdered By: Chaka Frye on 11-12-2023 Monocytes (Bld) [#/Vol] 0.8 10*3/uL Normal 0.0-0.8 [facility] Comment on above: Performed By: #### C MG MAURICIO, BMP ####[place] [address] Automated eosinophil %Ordere d By: Chaka Frye on 11-12-2023 Eosinophils/100 WBC (Bld) 5.2 % Normal . [facility] Comment on above: Performed By: #### C BC, MG, BMP ####[address] Automated eosinophil countOr dered By: Chaka Frye on 11-12-2023 Eosinophils (Bld) [#/Vol] 0.4 10*3/uL Normal 0.0-0.45 [facility] Comment on above: Performed By: #### C BC, MG, BMP ####[address] Automated monocyte %Ordered By: Chaka Frye on 11-12-2023 Monocytes/100 WBC (Bld) 11.0 % Normal . [facility] Comment on above: Performed By: #### C BC, MG, BMP ####[address] Automated neutrophil %Ordere d By: Chaka Frye on 11-12-2023 Neutrophils/100 WBC (Bld) 52.5 % Normal . [facility] Comment on above: Performed By: #### C BC, MG, BMP ####[address] Basic Metabolic Panelon 10-27 Creatinine Clr Calc Pharmacy 63.39 Normal [facility] Comment on above: Performed By: #### C BC, MG, BMP ####[address] GFR/1.73 sq M.predicted MDRD (S/P/Bld) [Vol rate/Area] mL/min/{1.73_m2} Normal [facility] Comment on above: Performed By: #### C BC, MG, BMP ####[address] Calcium [Mass/volume] in Ser um or PlasmaOrdered By: Chaka Frye on 11-12-2023 Calcium [Mass/Vol] 9.5 mg/dL Normal 8.6-10.3 [facility] Comment on above: Performed By: #### C MG MARTÍNEZ BMP ####[address] [place] [address] [facility] Capillary blood glucose steve urement by glucometer (mass/volume)Ordered By: Chaka Frye on 11-12-2023 Glucose [Mass/Vol] 137 mg/dL Normal [facility] Comment on above: Random Glucose Refer ence Range is dependent on time and content of last meal. Glucose of more than 200 mg/dL in a nonstressed, ambulatory subject supports the diagnosis of Diabetes Mellitus. Result Comment: [place] om Glucose Reference Range is dependent on time and content of last meal. Glucose of more than 200 mg/dL in a nonstressed, ambulatory subject supports the diagnosis of Diabetes Mellitus.PERFORMED BY:[address] [place], [place] [phone] MEDICAL DIRECTORSADAF STANTON M.D. Performed By: #### G HERNÁN ####Point of Care testing, Carbon dioxide, total [Moles /volume] in Serum or PlasmaOrdered By: Chaka Frye on 11-12-2023 CO2 [Moles/Vol] 30.0 mmol/L Normal 21.0-31.0 [facility] Comment on above: Performed By: #### C MG MARTÍNEZ BMP ####[place] [id number] [facility] Chloride [Moles/volume] in S elliot or PlasmaOrdered By: Chaka Frye on 11-12-2023 Chloride [Moles/Vol] 103 mmol/L Normal 98-107 [facility] Comment on above: Performed By: #### C MG MARTÍNEZ BMP ####[place] [address] [place] [id number] [facility] Complete Blood Count Auto Di ffon 11-12-2023 Mean Corpuscular HGB Conc 32.8 g/dL Normal 32.0-35.0 [facility] Comment on above: Performed By: #### C BC, MG, BMP ####[place] [address] NRBC% 0.1 /100{WBC} Normal 0-0.5 [facility] Comment on above: Performed By: #### C BC, MG, BMP ####[address] Creatinine [Mass/volume] in Serum or PlasmaOrdered By: Chaka Frye on 11-12-2023 Creatinine [Mass/Vol] 0.98 mg/dL Normal 0.60-1.20 [facility] Comment on above: Performed By: #### C BC, MG, BMP ####[address] ECH echo transthoracicon ECH echo transthoracic Normal Th e [facility] Erythrocyte distribution wid th [Ratio] by Automated countOrdered By: Chaka Frye on 11-12-2023 Erythrocyte distribution width (RBC) [Ratio] 14.0 % Normal 11.9-15.3 [facility] Comment on above: Performed By: #### C BC MG, BMP ####[address] Erythrocytes [#/volume] in B lood by Automated countOrdered By: Chaka Frye on 11-12-2023 RBC (Bld) [#/Vol] 4.54 10*6/uL Normal 3.60-5.00 [facility] Comment on above: Performed By: #### C BC, MG, BMP ####[address] Glucose Poct Glucometerson 0 11-12-2023 Glucose [Mass/Vol] 176 mg/dL Normal [facility] Comment on above: Result Comment: [place] Glucose Reference Range is dependent on time and content of last meal. Glucose of more than 200 mg/dL in a nonstressed, ambulatory subject supports the diagnosis of Diabetes Mellitus.PERFORMED BY:[facility] LAURELMitziKenishaGROVERMANSFIELD, [place] [phone] MEDICAL DIRECTORSADAF STANTON M.D. Performed By: #### G HERNÁN ####Point of Care testing, Glucose [Mass/Vol] 120 mg/dL Normal [facility] Comment on above: Result Comment: [place] Glucose Reference Range is dependent on time and content of last meal. Glucose of more than 200 mg/dL in a nonstressed, ambulatory subject supports the diagnosis of Diabetes Mellitus.PERFORMED BY:[place] [address] AMATOKenishaGROVERMANSFIELD, [place] [phone] MEDICAL DIRECTORSADAF STANTON M.D. Performed By: #### G HERNÁN ####Point of Care testing, Glucose [Mass/volume] in Ser um or PlasmaOrdered By: Chaka Frye on 11-12-2023 Glucose [Mass/Vol] 102 mg/dL High 70-100 [facility] Comment on above: ADA recommended refe rence rangeRandom Glucose Reference Range is dependent on time and content of last meal. Glucose of more than 200 mg/dL in a nonstressed, ambulatory subject supports the diagnosis of Diabetes Mellitus. Result Comment: [facility] Glucose Reference Range is dependent on time and content of last meal. Glucose of more than 200 mg/dL in a nonstressed, ambulatory subject supports the diagnosis of Diabetes Mellitus. ADA recommended reference range Performed By: #### C MAURICIO MG, BMP ####[address] [address] [facility] Hematocrit [Volume Fraction] of Blood by Automated countOrdered By: Chaka Frye on 11-12-2023 Hematocrit (Bld) [Volume fraction] 44.6 % Normal 34.0-46.4 [facility] Comment on above: Performed By: #### C MAURICIO MG, BMP ####[facility] [place] [address] [facility] Hemoglobin [Mass/volume] in BloodOrdered By: Chaka Frye on 11-12-2023 Hemoglobin (Bld) [Mass/Vol] 14.6 g/dL Normal 11.8-15.4 [facility] Comment on above: Performed By: #### C MAURICIO MG, BMP ####[place] [address] Leukocytes [#/volume] correc deepika for nucleated erythrocytes in Blood by Automated counOrdered By: Chakaelzbieta Frye on 11-12-2023 WBC corrected for nucl RBC Auto (Bld) [#/Vol] 7.4 10*3/uL 3.8-11.6 [facility] Leukocytes [#/volume] in Blo od by Automated countOrdered By: Chakaetienne Frye on 11-12-2023 WBC (Bld) [#/Vol] 7.4 10*3/uL Normal 3.8-11.6 [facility] Comment on above: Performed By: #### C MAURICIO MG, BMP ####[address] Lymphocytes [#/volume] in Bl ood by Automated countOrdered By: Chaka Frye on 11-12-2023 Lymphocytes (Bld) [#/Vol] 2.3 10*3/uL Normal 1.00-4.8 [facility] Comment on above: Performed By: #### C MAURICIO MG, BMP ####[place] [id number] [facility] Lymphocytes/100 leukocytes i n Blood by Automated countOrdered By: Chaka Frye on 11-12-2023 Lymphocytes/100 WBC (Bld) 30.8 % Normal . [facility] Comment on above: Performed By: #### C MAURICIO, MG, BMP ####[facility] [address] [place] [id number] [facility] MCH [Entitic mass] by Automa deepika countOrdered By: Chaka Frye on 11-12-2023 MCH (RBC) [Entitic mass] 32.2 pg Normal 24.7-34.3 [facility] Comment on above: Performed By: #### C BC, MG, BMP ####[address] [place] [address] [facility] MCHC Auto (RBC) [Mass/Vol]Or dered By: Chaka Frye on 11-12-2023 MCHC (RBC) [Mass/Vol] 32.8 g/dL 32.0-35.0 [facility] MCV [Entitic volume] by Auto mated countOrdered By: Chaka Frye on 11-12-2023 MCV (RBC) [Entitic vol] 98.1 fL Normal 80-100 [facility] Comment on above: Performed By: #### C BC, MG, BMP ####[place] [id number] [facility] Magnesium [Mass/volume] in S elliot or PlasmaOrdered By: Chaka Frye on 11-12-2023 Magnesium [Mass/Vol] 1.9 mg/dL Normal 1.9-2.7 [facility] Comment on above: Result Comment: PERF ORMED BY:[address] [place], [place] [phone] MEDICAL DIRECTORSADAF STANTON M.D. Performed By: #### C BC, MG, BMP ####[place] [id number] [facility] Neutrophils [#/volume] in Bl ood by Automated countOrdered By: Chaka Frye on 11-12-2023 Neutrophils (Bld) [#/Vol] 3.9 10*3/uL Normal 1.8-7.7 [facility] Comment on above: Performed By: #### C BC, MG, BMP ####[place] [id number] [facility] No Panel InformationOrdered By: Chaka Frye on 11-12-2023 Estimated GFR (CKD-EPI) > 60.0 mL/Min [facility] Creatinine Clearance (Chem 63.39 [facility] Nucleated erythrocytes [Pres ence] in Blood by Automated countOrdered By: Chaka Frye on 11-12-2023 Nucleated RBC Auto Ql (Bld) 0.1 /100{WBC} 0-0.5 [facility] Platelet mean volume [Entiti c volume] in Blood by Automated countOrdered By: Chaka Frye on 11-12-2023 Platelet mean volume (Bld) [Entitic vol] 9.1 fL Normal 6.3-10.7 [facility] Comment on above: Performed By: #### C BC, MG, BMP ####[place] [address] [place] [id number] [facility] Platelets [#/volume] in Bloo d by Automated countOrdered By: Chaka Frye on 11-12-2023 Platelets (Bld) [#/Vol] 155 10*3/uL Normal 150-450 [facility] Comment on above: Performed By: #### C MAURICIO MG, BMP ####[place] [id number] [facility] Potassium [Moles/volume] in Serum or PlasmaOrdered By: Chaka Frye on 11-12-2023 Potassium [Moles/Vol] 4.4 mmol/L Normal 3.5-5.1 [facility] Comment on above: Performed By: #### C MAURICIO MG, BMP ####[place] [id number] [facility] Serum or plasma anion gap de terminationOrdered By: Chaka Frye on 11-12-2023 Anion gap [Moles/Vol] 10.4 mmol/L Normal 6.0-15.0 [facility] Comment on above: Performed By: #### C BC, MG, BMP ####[place] [id number] [facility] Sodium [Moles/volume] in Ser um or PlasmaOrdered By: Chaka Frye on 11-12-2023 Sodium [Moles/Vol] 139 mmol/L Normal 136-145 [facility] Comment on above: Performed By: #### C BC, MG, BMP ####[place] [id number] [facility] Urea nitrogen [Mass/volume] in Serum or PlasmaOrdered By: Chaka Frye on 11-12-2023 Urea nitrogen [Mass/Vol] 18 mg/dL Normal 7-25 [facility] Comment on above: Performed By: #### C BC, MG, BMP ####[address] [place] [address] [facility] A1C with Estimated Average Andre horne 11-11-2023 Glucose [Mass/Vol] 143 mg/dL Normal [facility] Comment on above: Result Comment: PERF ORMED BY:[address] [place], [place] [phone] MEDICAL DIRECTORSADAF STANTON M.D. Performed By: #### A 1C WTH eA, MG, T4F, BMP, CBC ####[address] [place] [address] [facility] Anti-RNPon 11-11-2023 Anti-BASE REMOVER 0.2 Normal 0.0-0.9 [facility] Comment on above: Result Comment: PERF ORMED BY:[address] [place], [place] [id number] MEDICAL DIRECTORSADAF STANTON M.D. Performed By: #### J O1, ANTIR, SSB, SSA ####[facility] , Basic Metabolic Panelon 10-27 Anion gap [Moles/Vol] 9.3 mmol/L Normal 6.0-15.0 [facility] Comment on above: Performed By: #### A 1C WTH eA, MG, T4F, BMP, CBC ####[address] [address] [facility] Calcium [Mass/Vol] 8.9 mg/dL Normal 8.6-10.3 [facility] Comment on above: Performed By: #### A 1C WTH eA, MG, T4F, BMP, CBC ####[address] [address] [facility] Chloride [Moles/Vol] 106 mmol/L Normal 98-107 [facility] Comment on above: Performed By: #### A 1C WTH eA, MG, T4F, BMP, CBC ####[address] CO2 [Moles/Vol] 28.0 mmol/L Normal 21.0-31.0 The [facility] Comment on above: Performed By: #### A 1C WTH eA, MG, T4F, BMP, CBC ####[address] Creatinine [Mass/Vol] 1.07 mg/dL Normal 0.60-1.20 [facility] Comment on above: Performed By: #### A 1C WTH eA, MG, T4F, BMP, CBC ####[address] Creatinine Clr Calc Pharmacy 58.06 Normal [facility] Comment on above: Performed By: #### A 1C WTH eA, MG, T4F, BMP, CBC ####[address] GFR/1.73 sq M.predicted MDRD (S/P/Bld) [Vol rate/Area] 57.645 mL/min/{1.73_m2} Normal The [facility] Comment on above: Performed By: #### A 1C WTH eA, MG, T4F, BMP, CBC ####[address] Glucose [Mass/Vol] 119 mg/dL High 70-100 [facility] Comment on above: Result Comment: [place] Glucose Reference Range is dependent on time and content of last meal. Glucose of more than 200 mg/dL in a nonstressed, ambulatory subject supports the diagnosis of Diabetes Mellitus. ADA recommended reference range Performed By: #### A 1C WTH eA, MG, T4F, BMP, CBC ####[address] Potassium [Moles/Vol] 4.3 mmol/L Normal 3.5-5.1 [facility] Comment on above: Performed By: #### A 1C WTH eA, MG, T4F, BMP, CBC ####[address] Sodium [Moles/Vol] 139 mmol/L Normal 136-145 [facility] Comment on above: Performed By: #### A 1C WTH eA, MG, T4F, BMP, CBC ####[address] Urea nitrogen [Mass/Vol] 14 mg/dL Normal 7-25 [facility] Comment on above: Performed By: #### A 1C WTH eA, MG, T4F, BMP, CBC ####[address] Complete Blood Count Auto Di ffon 11-11-2023 Basophils (Bld) [#/Vol] 0.0 10*3/uL Normal 0.0-0.2 [facility] Comment on above: Result Comment: PERF ORMED BY:[address] [place], [place] [phone] MEDICAL DIRECTORSADAF STANTON M.D. Performed By: #### A 1C WTH eA, MG, T4F, BMP, CBC ####[address] Basophils/100 WBC (Bld) 0.6 % Normal . T [facility] Comment on above: Performed By: #### A 1C WTH eA, MG, T4F, BMP, CBC ####[address] Eosinophils (Bld) [#/Vol] 0.3 10*3/uL Normal 0.0-0.45 [facility] Comment on above: Performed By: #### A 1C WTH eA, MG, T4F, BMP, CBC ####[address] Eosinophils/100 WBC (Bld) 4.4 % Normal . [facility] Comment on above: Performed By: #### A 1C WTH eA, MG, T4F, BMP, CBC ####[id number] [place] Erythrocyte distribution width (RBC) [Ratio] 13.6 % Normal 11.9-15.3 [facility] Comment on above: Performed By: #### A WT eA, MG, T4F, BMP, CBC ####[address] Hematocrit (Bld) [Volume fraction] 41.6 % Normal 34.0-46.4 [facility] Comment on above: Performed By: #### A WT eA, MG, T4F, BMP, CBC ####[address] Hemoglobin (Bld) [Mass/Vol] 13.9 g/dL Normal 11.8-15.4 [facility] Comment on above: Performed By: #### A WT eA, MG, T4F, BMP, CBC ####[address] Lymphocytes (Bld) [#/Vol] 1.8 10*3/uL Normal 1.00-4.8 [facility] Comment on above: Performed By: #### A [facility] eA, MG, T4F, BMP, CBC ####[address] Lymphocytes/100 WBC (Bld) 28.5 % Normal . The [facility] Comment on above: Performed By: #### A 1C WT eA, MG, T4F, BMP, CBC ####[address] MCH (RBC) [Entitic mass] 32.5 pg Normal 24.7-34.3 [facility] Comment on above: Performed By: #### A WT eA, MG, T4F, BMP, CBC ####[address] MCV (RBC) [Entitic vol] 97.1 fL Normal 80-100 T he [facility] Comment on above: Performed By: #### A WT eA, MG, T4F, BMP, CBC ####[address] Mean Corpuscular HGB Conc 33.5 g/dL Normal 32.0-35.0 [facility] Comment on above: Performed By: #### A 1C WTH eA, MG, T4F, BMP, CBC ####[address] Monocytes (Bld) [#/Vol] 0.7 10*3/uL Normal 0.0-0.8 [facility] Comment on above: Performed By: #### A 1C WTH eA, MG, T4F, BMP, CBC ####[address] Monocytes/100 WBC (Bld) 10.9 % Normal . T [facility] Comment on above: Performed By: #### A 1C WTH eA, MG, T4F, BMP, CBC ####[address] Neutrophils (Bld) [#/Vol] 3.6 10*3/uL Normal 1.8-7.7 [facility] Comment on above: Performed By: #### A 1C WT eA, MG, T4F, BMP, CBC ####[address] Neutrophils/100 WBC (Bld) 55.6 % Normal . [facility] Comment on above: Performed By: #### A 1C WTH eA, MG, T4F, BMP, CBC ####[address] NRBC% 0.0 /100{WBC} Normal 0-0.5 The [facility] Comment on above: Performed By: #### A 1C WTH eA, MG, T4F, BMP, CBC ####[address] Platelet mean volume (Bld) [Entitic vol] 9.3 fL Normal 6.3-10.[address] [facility] Comment on above: Performed By: #### A 1C WTH eA, MG, T4F, BMP, CBC ####[address] [place] [address] [facility] Platelets (Bld) [#/Vol] 133 10*3/uL Low 150-450 [facility] Comment on above: Performed By: #### A 1C WTH eA, MG, T4F, BMP, CBC ####[address] [address] [facility] RBC (Bld) [#/Vol] 4.28 10*6/uL Normal 3.60-5.00 The [facility] Comment on above: Performed By: #### A 1C WTH eA, MG, T4F, BMP, CBC ####[address] [place] [address] [facility] WBC (Bld) [#/Vol] 6.4 10*3/uL Normal 3.8-11.6 [facility] Comment on above: Performed By: #### A 1C WTH eA, MG, T4F, BMP, CBC ####[id number] [facility] Glucose Poct Glucometerson 0 11-11-2023 Glucose [Mass/Vol] 141 mg/dL Normal [facility] Comment on above: Result Comment: [facility] Glucose Reference Range is dependent on time and content of last meal. Glucose of more than 200 mg/dL in a nonstressed, ambulatory subject supports the diagnosis of Diabetes Mellitus.PERFORMED BY:[address] [place], [place] [id number] MEDICAL GEENA STANTON M.D. Performed By: #### G LULS ####Point of Care testing, Glucose [Mass/Vol] 142 mg/dL Normal [facility] Comment on above: Result Comment: [facility] Glucose Reference Range is dependent on time and content of last meal. Glucose of more than 200 mg/dL in a nonstressed, ambulatory subject supports the diagnosis of Diabetes Mellitus.PERFORMED BY:[address] [place], [place] [phone] MEDICAL GEENA STANTON M.D. Performed By: #### G LULS ####Point of Care testing, Glucose [Mass/Vol] 154 mg/dL Normal [facility] Comment on above: Result Comment: [facility] Glucose Reference Range is dependent on time and content of last meal. Glucose of more than 200 mg/dL in a nonstressed, ambulatory subject supports the diagnosis of Diabetes Mellitus.PERFORMED BY:[address] [place], [place] [phone] MEDICAL DIRECTORSADAF STANTON M.D. Performed By: #### G LULS ####Point of Care testing, Glucose [Mass/Vol] 117 mg/dL Normal [facility] Comment on above: Result Comment: [facility] Glucose Reference Range is dependent on time and content of last meal. Glucose of more than 200 mg/dL in a nonstressed, ambulatory subject supports the diagnosis of Diabetes Mellitus.PERFORMED BY:[address] [place], [place] [phone] MEDICAL DIRECTORSADAF STANTON M.D. Performed By: #### G LULS ####Point of Care testing, Glucose mean value [Mass/vol ume] in Blood Estimated from glycated hemoglobinOrdered By: Jluis Campos on 11-11-2023 Average glucose Estimated from glycated hemoglobin (Bld) [Mass/Vol] 143 mg/dL [facility] Hemoglobin A1c percentageOrd ered By: Jluis Campos on 11-11-2023 HbA1c (Bld) [Mass fraction] 6.6 % High 4.3-5.6 [facility] Comment on above: Increased risk for d iabetes: 5.7 - 6.4diabetes: >6.4glycemic control for adults with diabetes: <7.0 Result Comment: Incr eased risk for diabetes: 5.7 - 6.4 diabetes: >6.4 glycemic control for adults with diabetes: <7.0 Performed By: #### A 1C WTH eA, MG, T4F, BMP, CBC ####[facility] [place] [address] [facility] SUSHMA-1 Antibodyon 11-11-2023 SUSHMA-1 Antibody <0.2 Normal 0.0-0.9 The [facility] Comment on above: Result Comment: Perf ormed at: - [facility] [address] [id number] Glass Carrier: Yuri Osullivan PhD, Phone: [phone] Performed By: #### J O1, ANTIR, SSB, SSA ####[facility] , LACTATE AND PYRUVATEon 11-10 LACTIC ACID, PLASMA . [facility] Comment on above: Test not performed. Supernatant is required. CONTACTED YOUR FACILity on 11-05-2023 PYRUVIC ACID, BLOOD . [facility] Comment on above: Test not performed [facility] MR head/brain wo/w conon MR head/brain wo/w con Normal Th e [facility] Magnesiumon 11-11-2023 Magnesium [Mass/Vol] 1.8 mg/dL Low 1.9-2.7 The [facility] Comment on above: Performed By: #### A 1C WTH eA, MG, T4F, BMP, CBC ####[facility] [id number] No Panel InformationOrdered By: Kirt Renae on 11-11-2023 BASE REMOVER Antibody 0.2 AI 0.0-0.9 [facility] SS-A/Ro Sjogrens Antibodyon 11-11-2023 SS-A/Ro Sjogrens Antibody <0.2 Normal 0.0-0.9 The [facility] Comment on above: Performed By: #### J O1, ANTIR, SSB, SSA ####[facility] , SS-B/La Sjogrens Antibodyon 11-11-2023 SS-B/La Sjogrens Antibody <0.2 Normal 0.0-0.9 The [facility] Comment on above: Performed By: #### J O1, ANTIR, SSB, SSA ####[facility] , Serum Sushma-1 extractable nucle ar antibody assay (units/volume)Ordered By: Krit Renae on 11-11-2023 Sushma-1 extractable nuclear Ab Qn (S) <0.2 AI 0.0-0.9 [facility] Comment on above: Performed at: CB - [facility] [address] [id number] Director: Yuri Osullivan PhD, Phone: [phone] Serum Sjogrens syndrome-A ex tractable nuclear antibody assay (units/volume)Ordered By: Kirt Renae on 11-11-2023 Sjogrens syndrome-A extractable nuclear Ab Qn (S) <0.2 AI 0.0-0.9 [facility] Serum Sjogrens syndrome-B ex tractable nuclear antibody assay (units/volume)Ordered By: Kirt Renae on 11-11-2023 Sjogrens syndrome-B extractable nuclear Ab Qn (S) <0.2 AI 0.0-0.9 [facility] Serum or plasma thyroglobuli n antibody assay (units/volume)Ordered By: Kirt Renae on 11-11-2023 Thyroglobulin Ab Qn [IU]/mL 0.0-0.9 [facility] Comment on above: Thyroglobulin Antibo dy measured by Quyi NetworkMethodologyIt should be noted that the presence of thyroglobulinantibodies may not be pathogenic nor diagnostic, especiallyat very low levels. The assay carpet cleaning technician has found thatfour percent of individuals without evidence of thyroiddisease or autoimmunity will have positive TgAb levels upto 4 IU/mL.Performed at: CB - [facility] [address] [id number] Director: Yuri Osullivan PhD, Phone: [phone] Serum or plasma thyroperoxid ase antibody assay (units/volume)Ordered By: Kirt Renae on 11-11-2023 TPO Ab Qn [IU]/mL 0-34 [facility] Thyroid Antibodies TPO+Tg Ab on 11-11-2023 Antithyroglobulin Ab <1.0 Normal 0.0-0.9 [facility] Comment on above: Result Comment: Thyr oglobulin Antibody measured by Mami Lizbeth Methodology It should be noted that the presence of thyroglobulin antibodies may not be pathogenic nor diagnostic, especially at very low levels. The assay carpet cleaning technician has found that four percent of individuals without evidence of thyroid disease or autoimmunity will have positive TgAb levels up to 4 IU/mL. Performed at: [facility] [address] [id number] Glass Carrier: Yuri Osullivan PhD, Phone: [phone] BY:[address] [address] [address] [place], [place] [phone] MEDICAL DIRECTORSADAF STANTON M.D. Performed By: #### T 3F ####[address]#### THY AB ####[facility] , Thyroid Peroxidase Antibodies <9 Normal 0-34 [facility] Comment on above: Performed By: #### T 3F ####[address]#### THY AB ####[facility] , Thyroxine (T4) free [Mass/vo lume] in Serum or PlasmaOrdered By: Kirt Renae on 11-11-2023 Free T4 [Mass/Vol] 0.83 ng/dL Normal 0.61-1.12 [facility] Comment on above: Result Comment: PERF ORMED BY:[address] [place], [place] [phone] MEDICAL GEENA STANTON M.D. Performed By: #### A 1C WTH eA, MG, T4F, BMP, CBC ####[address] Triiodothyronine (T3) Freeon 11-11-2023 Triiodothyronine (T3) Free 2.60 pg/mL Normal 2.50-3.90 [facility] Comment on above: Result Comment: PERF ORMED BY:[address] [place], [place] [phone] MEDICAL DIRECTORSADAF STANTON M.D. Performed By: #### T 3F ####[address]#### THY AB ####[facility] , Triiodothyronine (T3) Free [ Mass/volume] in Serum or PlasmaOrdered By: Kirt Renae on 11-11-2023 Free T3 [Mass/Vol] 2.60 pg/mL 2.50-3.90 [facility] Alanine aminotransferase [En zymatic activity/volume] in Serum or PlasmaOrdered By: Reynold Daily on 11-10-2023 ALT [Catalytic activity/Vol] 19 U/L Normal 7-52 [facility] Comment on above: Performed By: #### T 4F, [id number], CBC, TSH3, CMP, [id number], MG ####[address] Albumin [Mass/volume] in Ser um or Plasma by Bromocresol green (BCG) dye binding methoOrdered By: Reynold Daily on 11-10-2023 Albumin BCG dye [Mass/Vol] 4.2 g/dL 3.5-5.7 [facility] Alkaline phosphatase [Enzyma tic activity/volume] in Serum or PlasmaOrdered By: Reynold Daily on 11-10-2023 ALP [Catalytic activity/Vol] 60 U/L Normal 34-104 [facility] Comment on above: Performed By: #### T 4F, [id number], CBC, TSH3, CMP, [id number], MG ####[address] Aspartate aminotransferase [ Enzymatic activity/volume] in Serum or PlasmaOrdered By: Reynold Daily on 11-10-2023 AST [Catalytic activity/Vol] 29 U/L Normal 13-39 [facility] Comment on above: Performed By: #### T 4F, [id number], CBC, TSH3, CMP, [id number], MG ####[address] [address] Automated basophil %Ordered By: Reynold Daily on 11-10-2023 Basophils/100 WBC (Bld) 0.9 % Normal . [facility] Comment on above: Performed By: #### T 4F, [id number], CBC, TSH3, CMP, [id number], MG ####[address] Automated basophil countOrde red By: Reynold Daily on 11-10-2023 Basophils (Bld) [#/Vol] 0.1 10*3/uL Normal 0.0-0.2 [facility] Comment on above: Result Comment: PERF ORMED BY:[address] [place], [place] [phone] MEDICAL DIRECTORSADAF STANTON M.D. Performed By: #### T 4F, [id number], CBC, TSH3, CMP, [id number], MG ####[address] Automated blood monocyte cou ntOrdered By: Reynold Daily on 11-10-2023 Monocytes (Bld) [#/Vol] 0.7 10*3/uL Normal 0.0-0.8 [facility] Comment on above: Performed By: #### T 4F, [id number], CBC, TSH3, CMP, [id number], MG ####[address] Automated eosinophil %Ordere d By: Reynold Daily on 11-10-2023 Eosinophils/100 WBC (Bld) 3.7 % Normal . [facility] Comment on above: Performed By: #### T 4F, [id number], CBC, TSH3, CMP, [id number], MG ####[address] Automated eosinophil countOr dered By: Reynold Daily on 11-10-2023 Eosinophils (Bld) [#/Vol] 0.3 10*3/uL Normal 0.0-0.45 [facility] Comment on above: Performed By: #### T 4F, [id number], CBC, TSH3, CMP, [id number], MG ####[place] [id number] [facility] Automated monocyte %Ordered By: Reynoldmo Daily on 11-10-2023 Monocytes/100 WBC (Bld) 8.2 % Normal . F [facility] Comment on above: Performed By: #### T 4F, [id number], CBC, TSH3, CMP, [id number], MG ####[address] [place] [address] [facility] Automated neutrophil %Ordere d By: Reynold Daily on 11-10-2023 Neutrophils/100 WBC (Bld) 61.2 % Normal . [facility] Comment on above: Performed By: #### T 4F, [id number], CBC, TSH3, CMP, [id number], MG ####[address] [place] [id number] [facility] Bacteria [Presence] in Urine by AutomatedOrdered By: Reynold Daily on 11-10-2023 Bacteria Auto Ql (U) 1+ [HPF] High None Seen [facility] Bilirubin Test strip Ql (U)O rdered By: Reynold Daily on 11-10-2023 Bilirubin Ql (U) Negative Negative [facility] Bilirubin.total [Mass/volume ] in Serum or PlasmaOrdered By: Reynold Daily on 11-10-2023 Bilirubin [Mass/Vol] 0.4 mg/dL Normal 0.3-1.0 [facility] Comment on above: Performed By: #### T 4F, [id number], CBC, TSH3, CMP, [id number], MG ####[address] [place] [id number] [facility] C reactive protein [Mass/vol ume] in Serum or PlasmaOrdered By: Kirt Renae on 11-10-2023 CRP [Mass/Vol] < 0.5 mg/dL 0.0-0.5 [facility] C-Reactive Proteinon 024 CRP [Mass/Vol] mg/L Normal 0.0-0.5 [facility] Comment on above: Result Comment: PERF ORMED BY:[address] [place], [place] [phone] MEDICAL DIRECTORSADAF STANTON M.D. Performed By: #### C RP, ESR ####[address] [place] [address] [facility] CT head/brain wo conon 11-09 CT head/brain wo con Normal [facility] Calcium [Mass/volume] in Ser um or PlasmaOrdered By: Reynold Daily on 11-10-2023 Calcium [Mass/Vol] 9.6 mg/dL Normal 8.6-10.3 [facility] Comment on above: Performed By: #### T 4F, [id number], CBC, TSH3, CMP, [id number], MG ####[place] [address] Carbon dioxide, total [Moles /volume] in Serum or PlasmaOrdered By: Reynold Daily on 11-10-2023 CO2 [Moles/Vol] 25.4 mmol/L Normal 21.0-31.0 [facility] Comment on above: Performed By: #### T 4F, [id number], CBC, TSH3, CMP, [id number], MG ####[address] [place] [id number] [facility] Chloride [Moles/volume] in S elliot or PlasmaOrdered By: Reynold Daily on 11-10-2023 Chloride [Moles/Vol] 105 mmol/L Normal 98-107 [facility] Comment on above: Performed By: #### T 4F, [id number], CBC, TSH3, CMP, [id number], MG ####[address] [place] [id number] [facility] Color of Urine by AutoOrdere d By: Reynold Daily on 11-10-2023 Color (U) Light-yellow Normal Yellow [facility] Comment on above: Order Comment: Name Collection Type:: Clean-Voided Midstream Performed By: #### A DDONUAPLUS, CUU ####[place] [id number] [facility] Complete Blood Count Auto Di ffon 11-10-2023 Mean Corpuscular HGB Conc 33.3 g/dL Normal 32.0-35.0 [facility] Comment on above: Performed By: #### T 4F, [id number], CBC, TSH3, CMP, [id number], MG ####[address] Monocytes/100 WBC (Bld) 19.74 % Normal 0.00-20.00 [facility] Comment on above: Performed By: #### T 4F, [id number], CBC, TSH3, CMP, [id number], MG ####[place] [id number] [facility] NRBC% 0.1 /100{WBC} Normal 0-0.5 [facility] Comment on above: Performed By: #### T 4F, [id number], CBC, TSH3, CMP, [id number], MG ####[place] [id number] [facility] Comprehensive Metabolic Pane juan 11-10-2023 Albumin [Mass/Vol] 4.2 g/dL Normal 3.5-5.7 [facility] Comment on above: Performed By: #### T 4F, [id number], CBC, TSH3, CMP, [id number], MG ####[place] [id number] [facility] Creatinine Clr Calc Pharmacy 66.28 Normal [facility] Comment on above: Performed By: #### T 4F, [id number], CBC, TSH3, CMP, [id number], MG ####[place] [id number] [facility] GFR/1.73 sq M.predicted MDRD (S/P/Bld) [Vol rate/Area] mL/min/{1.73_m2} Normal [facility] Comment on above: Performed By: #### T 4F, [id number], CBC, TSH3, CMP, [id number], MG ####[place] [id number] [facility] Creatine kinase [Enzymatic a ctivity/volume] in Serum or PlasmaOrdered By: Reynoldmo Daily on 11-10-2023 CK [Catalytic activity/Vol] 69 U/L Normal 30-223 [facility] Comment on above: Result Comment: PERF ORMED BY:[address] [place], [place] [phone] MEDICAL DIRECTORSADAF STANTON M.D. Performed By: #### C K ####[place] [id number] [facility] Creatinine [Mass/volume] in Serum or PlasmaOrdered By: Reynold Daily on 11-10-2023 Creatinine [Mass/Vol] 0.93 mg/dL Normal 0.60-1.20 [facility] Comment on above: Performed By: #### T 4F, [id number], CBC, TSH3, CMP, [id number], MG ####[place] [id number] [facility] Dipstick and Microscopicon 0 11-10-2023 Bacteria,Urine 1+ High None Seen [facility] Comment on above: Order Comment: Name Collection Type:: Clean-Voided Midstream Performed By: #### A DDONUAPLUS, CUU ####[place] [id number] [facility] Bilirubin,Urine Negative Normal Negative [facility] Comment on above: Order Comment: Name Collection Type:: Clean-Voided Midstream Performed By: #### A DDONUAPLUS, CUU ####[address] [address] [facility] Glucose Ql (U) 1000 mg/dL High Normal [facility] Comment on above: Order Comment: Name Collection Type:: Clean-Voided Midstream Performed By: #### A DDONUAPLUS, CUU ####[address] [address] [facility] Hyaline Casts,Urine None Normal 0-8 [facility] Comment on above: Order Comment: Name Collection Type:: Clean-Voided Midstream Result Comment: PERF ORMED BY:[address] [address] [place] [place], [place] [phone] MEDICAL DIRECTORSADAF STANTON M.D. Performed By: #### A DDONUAPLUS, CUU ####[address] [address] [place] [address] [place] Nitrite,Urine Negative Normal Negative [facility] [facility] Comment on above: Order Comment: Name Collection Type:: Clean-Voided Midstream Performed By: #### A DDONUAPLUS, CUU ####[address] [place] [address] [place] Occult Blood,Urine Negative Normal Negative [facility] Comment on above: Order Comment: Name Collection Type:: Clean-Voided Midstream Result Comment: PERF ORMED BY:[address] [address] [place] [place], [place] [phone] MEDICAL DIRECTORSADAF STANTON M.D. Performed By: #### A DDONUAPLUS, CUU ####[address] [address] [place] Protein,Urine Negative Normal Negative [facility] Comment on above: Order Comment: Name Collection Type:: Clean-Voided Midstream Performed By: #### A DDONUAPLUS, CUU ####[address] [address] [place] RBC,Urine 5-9 High 0-4 [facility] Comment on above: Order Comment: Name Collection Type:: Clean-Voided Midstream Performed By: #### A DDONUAPLUS, CUU ####[address] [place] [address] [place] Specificy [place],Urine 1.007 Normal 1.00 1-1.03 0 [facility] Comment on above: Order Comment: Name Collection Type:: Clean-Voided Midstream Performed By: #### A DDONUAPLUS, CUU ####[address] [address] [place] Squamous Epithelial Cell,Urine 5-9 High 0-2 [facility] Comment on above: Order Comment: Name Collection Type:: Clean-Voided Midstream Performed By: #### A DDONUAPLUS, CUU ####[address] Urobilinogen,Urine Normal Normal Normal [facility] Comment on above: Order Comment: Name Collection Type:: Clean-Voided Midstream Performed By: #### A DDONUAPLUS, CUU ####[address] WBC CLUMP, Urine Occasional High None Seen [facility] Comment on above: Order Comment: Name Collection Type:: Clean-Voided Midstream Performed By: #### A DDONUAPLUS, CUU ####[address] WBC,Urine 20-49 High 0-4 [facility] Comment on above: Order Comment: Name Collection Type:: Clean-Voided Midstream Performed By: #### A DDONUAPLUS, CUU ####[address] Epithelial cells.squamous [# /area] in Urine sediment by Automated countOrdered By: Reynold Daily on 11-10-2023 Epithelial cells.squamous Auto (Urine sed) [#/Area] 5-9 [HPF] High 0-2 [facility] Erythrocyte Sedimentation Ra abner 11-10-2023 ESR (Bld) [Velocity] 40 mm/h High 0-29 [facility] Comment on above: Result Comment: PERF ORMED BY:[address] [place], [place] [phone] MEDICAL DIRECTORSADAF STANTON M.D. Performed By: #### C RP, ESR ####[address] Erythrocyte distribution wid th [Ratio] by Automated countOrdered By: Reynold Daily on 11-10-2023 Erythrocyte distribution width (RBC) [Ratio] 13.5 % Normal 11.9-15.3 [facility] Comment on above: Performed By: #### T 4F, [id number], CBC, TSH3, CMP, [id number], MG ####[id number] [facility] Erythrocyte sedimentation ra te by Photometric methodOrdered By: Kirt Renae on 11-10-2023 ESR Photometric method (Bld) [Velocity] 40 mm/hr High 0-29 [facility] Erythrocytes [#/area] in Uri ne sediment by Automated countOrdered By: Reynold Daily on 11-10-2023 RBC Auto (Urine sed) [#/Area] 5-9 [HPF] High 0-4 [facility] Erythrocytes [#/volume] in B lood by Automated countOrdered By: Reynold Daily on 11-10-2023 RBC (Bld) [#/Vol] 4.59 10*6/uL Normal 3.60-5.00 [facility] Comment on above: Performed By: #### T 4F, [id number], CBC, TSH3, CMP, [id number], MG ####[address] [place] [id number] [facility] Folate [Mass/volume] in Seru m or PlasmaOrdered By: Kirt Renae on 11-10-2023 Folate [Mass/Vol] 19.6 ng/mL >5.9 [facility] Comment on above: Folate reference ran ge: >5.9 ng/mlThe WHO technical consultation on folate and vitamin [id number] has determined that folate concentrations lessthan 4 ng/ml are considered deficient. Free T4 (Free Thyroxine)on 11-10-2023 Free T4 [Mass/Vol] 0.82 ng/dL Normal 0.61-1.12 [facility] Comment on above: Performed By: #### T 4F, [id number], CBC, TSH3, CMP, [id number], MG ####[id number] [facility] Glucose Poct Glucometerson 11-10-2023 Glucose [Mass/Vol] 146 mg/dL Normal [facility] Comment on above: Result Comment: [place] Glucose Reference Range is dependent on time and content of last meal. Glucose of more than 200 mg/dL in a nonstressed, ambulatory subject supports the diagnosis of Diabetes Mellitus.PERFORMED BY:[address] [place], [place] [phone] MEDICAL GEENA STANTON M.D. Performed By: #### G LULS ####Point of Care testing, Commemt1 Glu2: Cleaned Meter Normal [facility] Comment on above: Result Comment: PERF ORMED BY:[address] [address] [address] [place], [place] [phone] MEDICAL DIRECTORSADAF STANTON M.D. Performed By: #### G LULS ####Point of Care testing, Glucose [Mass/Vol] 140 mg/dL Normal [facility] Comment on above: Result Comment: [place] om Glucose Reference Range is dependent on time and content of last meal. Glucose of more than 200 mg/dL in a nonstressed, ambulatory subject supports the diagnosis of Diabetes Mellitus. Performed By: #### G LULS ####Point of Care testing, Commemt1 Glu2: Cleaned Meter Normal [facility] Comment on above: Result Comment: PERF ORMED BY:[address] [place], [place] [phone] MEDICAL GEENA STANTON M.D. Performed By: #### G LULS ####Point of Care testing, Glucose [Mass/Vol] 157 mg/dL Normal [facility] Comment on above: Result Comment: [place] om Glucose Reference Range is dependent on time and content of last meal. Glucose of more than 200 mg/dL in a nonstressed, ambulatory subject supports the diagnosis of Diabetes Mellitus. Performed By: #### G LULS ####Point of Care testing, Commemt1 Glu2: Cleaned Meter Normal [facility] Comment on above: Result Comment: PERF ORMED BY:[address] [place], [place] [phone] MEDICAL GEENA STANTON M.D. Performed By: #### G LULS ####Point of Care testing, Glucose [Mass/Vol] 101 mg/dL Normal [facility] Comment on above: Result Comment: [place] om Glucose Reference Range is dependent on time and content of last meal. Glucose of more than 200 mg/dL in a nonstressed, ambulatory subject supports the diagnosis of Diabetes Mellitus. Performed By: #### G LULS ####Point of Care testing, Glucose [Mass/volume] in Ser um or PlasmaOrdered By: Reynold Daily on 11-10-2023 Glucose [Mass/Vol] 95 mg/dL Normal 70-100 [facility] Comment on above: ADA recommended refe rence rangeRandom Glucose Reference Range is dependent on time and content of last meal. Glucose of more than 200 mg/dL in a nonstressed, ambulatory subject supports the diagnosis of Diabetes Mellitus. Result Comment: [place] om Glucose Reference Range is dependent on time and content of last meal. Glucose of more than 200 mg/dL in a nonstressed, ambulatory subject supports the diagnosis of Diabetes Mellitus. ADA recommended reference range Performed By: #### T 4F, [id number], CBC, TSH3, CMP, [id number], MG ####[facility] [id number] [facility] Glucose [Mass/volume] in Uri ne by Test stripOrdered By: Reynold Daily on 11-10-2023 Glucose Test strip (U) [Mass/Vol] 1000 mg/dL High Normal [facility] Hematocrit [Volume Fraction] of Blood by Automated countOrdered By: Reynold Daily on 11-10-2023 Hematocrit (Bld) [Volume fraction] 44.9 % Normal 34.0-46.4 [facility] Comment on above: Performed By: #### T 4F, [id number], CBC, TSH3, CMP, [id number], MG ####[facility] [address] [place] [address] [facility] Hemoglobin Test strip Ql (U) Ordered By: Reynold Daily on 11-10-2023 Hemoglobin Ql (U) Negative Negative [facility] Hemoglobin [Mass/volume] in BloodOrdered By: Reynold Daily on 11-10-2023 Hemoglobin (Bld) [Mass/Vol] 15.0 g/dL Normal 11.8-15.4 [facility] Comment on above: Performed By: #### T 4F, [id number], CBC, TSH3, CMP, [id number], MG ####[address] Hyaline casts [#/area] in Ur ine sediment by Automated countOrdered By: Reynold Daily on 11-10-2023 Hyaline casts Auto (Urine sed) [#/Area] None [LPF] 0-8 [facility] Ketones [Presence] in Urine by Test stripOrdered By: Reynold Daily on 11-10-2023 Ketones Ql (U) Negative Normal Negative [facility] Comment on above: Order Comment: Name Collection Type:: Clean-Voided Midstream Performed By: #### A DDONUAPLUS, CUU ####[address] Leukocyte clumps [Presence] in Urine by AutomatedOrdered By: Reynold Daily on 11-10-2023 Leukocyte clumps Auto Ql (U) Occasional [LPF] High None Seen [facility] Leukocyte esterase [Presence ] in Urine by Test stripOrdered By: Reynold Daily on 11-10-2023 Leukocyte esterase Test strip Ql (U) 4+ High Negative [facility] Comment on above: Order Comment: Name Collection Type:: Clean-Voided Midstream Performed By: #### A DDONUAPLUS, CUU ####[address] Leukocytes [#/area] in Urine sediment by Automated countOrdered By: Reynold Daily on 11-10-2023 WBC Auto (Urine sed) [#/Area] 20-49 [HPF] High 0-4 [facility] Leukocytes [#/volume] correc deepika for nucleated erythrocytes in Blood by Automated counOrdered By: Reynold Daily on 11-10-2023 WBC corrected for nucl RBC Auto (Bld) [#/Vol] 8.5 10*3/uL 3.8-11.6 [facility] Leukocytes [#/volume] in Blo od by Automated countOrdered By: Reynold Daily on 11-10-2023 WBC (Bld) [#/Vol] 8.5 10*3/uL Normal 3.8-11.6 [facility] Comment on above: Performed By: #### T 4F, [id number], CBC, TSH3, CMP, [id number], MG ####[place] [id number] [facility] Lymphocytes [#/volume] in Bl ood by Automated countOrdered By: Reynold Daily on 11-10-2023 Lymphocytes (Bld) [#/Vol] 2.2 10*3/uL Normal 1.00-4.8 [facility] Comment on above: Performed By: #### T 4F, [id number], CBC, TSH3, CMP, [id number], MG ####[place] [id number] [facility] Lymphocytes/100 leukocytes i n Blood by Automated countOrdered By: Reynold Daily on 11-10-2023 Lymphocytes/100 WBC (Bld) 26.0 % Normal . [facility] Comment on above: Performed By: #### T 4F, [id number], CBC, TSH3, CMP, [id number], MG ####[address] [address] [facility] MCH [Entitic mass] by Automa deepika countOrdered By: Reynold Daily on 11-10-2023 MCH (RBC) [Entitic mass] 32.6 pg Normal 24.7-34.3 [facility] Comment on above: Performed By: #### T 4F, [id number], CBC, TSH3, CMP, [id number], MG ####[place] [id number] [facility] MCHC Auto (RBC) [Mass/Vol]Or dered By: Reynold Daily on 11-10-2023 MCHC (RBC) [Mass/Vol] 33.3 g/dL 32.0-35.0 [facility] MCV [Entitic volume] by Auto mated countOrdered By: Reynold Daily on 11-10-2023 MCV (RBC) [Entitic vol] 97.8 fL Normal 80-100 [facility] Comment on above: Performed By: #### T 4F, [id number], CBC, TSH3, CMP, [id number], MG ####[address] [place] [address] [facility] Magnesium [Mass/volume] in S elliot or PlasmaOrdered By: Reynold Daily on 11-10-2023 Magnesium [Mass/Vol] 1.7 mg/dL Low 1.9-2.7 [facility] Comment on above: Result Comment: PERF ORMED BY:[address] [place], [place] [phone] MEDICAL DIRECTORSADAF STANTON M.D. Performed By: #### T 4F, [id number], CBC, TSH3, CMP, [id number], MG ####[address] [address] [facility] Monocyte distribution width [Entitic volume] in Blood by AutomatedOrdered By: Reynold Daily on 11-10-2023 Monocyte distribution width Auto (Bld) [Entitic vol] 19.74 % 0.00-20.00 [facility] Neutrophils [#/volume] in Bl ood by Automated countOrdered By: Reynold Daily on 11-10-2023 Neutrophils (Bld) [#/Vol] 5.2 10*3/uL Normal 1.8-7.7 [facility] Comment on above: Performed By: #### T 4F, [id number], CBC, TSH3, CMP, [id number], MG ####[address] [address] [facility] Nitrite Test strip Ql (U)Ord ered By: Reynold Daily on 11-10-2023 Nitrite Ql (U) Negative Negative [facility] No Panel InformationOrdered By: Kirt Renae on 11-10-2023 Bedside Glucose Comment Glu2: cleaned meter [facility] No Panel InformationOrdered By: Reynold Daily on 11-10-2023 Estimated GFR (CKD-EPI) > 60.0 mL/Min [facility] Creatinine Clearance (Chem 66.28 [facility] Nucleated erythrocytes [Pres ence] in Blood by Automated countOrdered By: Reynold Daily on 11-10-2023 Nucleated RBC Auto Ql (Bld) 0.1 /100{WBC} 0-0.5 [facility] Platelet mean volume [Entiti c volume] in Blood by Automated countOrdered By: Reynold Daily on 11-10-2023 Platelet mean volume (Bld) [Entitic vol] 8.7 fL Normal 6.3-10.7 [facility] Comment on above: Performed By: #### T 4F, [id number], CBC, TSH3, CMP, [id number], MG ####[address] [place] [id number] [facility] Platelets [#/volume] in Bloo d by Automated countOrdered By: Reynold Daily on 11-10-2023 Platelets (Bld) [#/Vol] 149 10*3/uL Low 150-450 [facility] Comment on above: Performed By: #### T 4F, [id number], CBC, TSH3, CMP, [id number], MG ####[place] [id number] [facility] Potassium [Moles/volume] in Serum or PlasmaOrdered By: Reynold Daily on 11-10-2023 Potassium [Moles/Vol] 4.6 mmol/L Normal 3.5-5.1 [facility] Comment on above: Hemolysis is present at a level that could interfere with the result.Contact lab if redraw is required Result Comment: Hemo lysis is present at a level that could interfere with the result. Contact lab if redraw is required Performed By: #### T 4F, [id number], CBC, TSH3, CMP, [id number], MG ####[place] [id number] [facility] Protein Test strip (U) [Mass /Vol]Ordered By: Reynold Daily on 11-10-2023 Protein (U) [Mass/Vol] Negative Negative [facility] Protein [Mass/volume] in Ser um or PlasmaOrdered By: Reynold Daily on 11-10-2023 Protein [Mass/Vol] 7.1 g/dL Normal 6.4-8.9 [facility] Comment on above: Performed By: #### T 4F, [id number], CBC, TSH3, CMP, [id number], MG ####[address] [place] [address] [facility] Redraw Folateon 11-10-2023 Redraw Folate 19.6 ng/mL Normal >5.9 [facility] Comment on above: Order Comment: SPECI MEN HEMOLYZED. NOTIFIED MANSOOR Result Comment: Meera te reference range: >5.9 ng/ml The WHO technical consultation on folate and vitamin b12 deficiencies has determined that folate concentrations less than 4 ng/ml are considered deficient.PERFORMED BY:[address] [place], [place] [phone] MEDICAL DIRECTORSADAF STANTON M.D. Performed By: #### R EDRAW B12, REDRAW FOLATE ####[address] [place] [address] [facility] Serum globulin measurement b y calculation (mass/volume)Ordered By: Reynold Daily on 11-10-2023 Globulin (S) [Mass/Vol] 2.9 g/dL Normal [facility] Comment on above: Performed By: #### T 4F, [id number], CBC, TSH3, CMP, [id number], MG ####[address] [place] [address] [facility] Serum or plasma albumin/glob ulin mass ratioOrdered By: Reynold Daily on 11-10-2023 Albumin/Globulin [Mass ratio] 1.4 {ratio} Normal [facility] Comment on above: Performed By: #### T 4F, [id number], CBC, TSH3, CMP, [id number], MG ####[address] [place] [address] [facility] Serum or plasma anion gap de terminationOrdered By: Reynold Daily on 11-10-2023 Anion gap [Moles/Vol] 11.2 mmol/L Normal 6.0-15.0 [facility] Comment on above: Performed By: #### T 4F, [id number], CBC, TSH3, CMP, [id number], MG ####[address] [place] [address] [facility] Sodium [Moles/volume] in Ser um or PlasmaOrdered By: Reynold Daily on 11-10-2023 Sodium [Moles/Vol] 137 mmol/L Normal 136-145 [facility] Comment on above: Performed By: #### T 4F, [id number], CBC, TSH3, CMP, [id number], MG ####[address] [place] [address] [facility] Specific gravity Test strip (U) [Rel density]Ordered By: Reynold Daily on 11-10-2023 Specific gravity (U) [Rel density] 1.007 1.001-1.03 0 [facility] Thyrotropin [Units/volume] i n Serum or PlasmaOrdered By: Jluis Campos on 11-10-2023 TSH Qn 5.73 m[IU]/L High 0.45-5.33 [facility] Comment on above: Performed By: #### T 4F, [id number], CBC, TSH3, CMP, [id number], MG ####[address] [place] [address] [facility] Urea nitrogen [Mass/volume] in Serum or PlasmaOrdered By: Reynold Daily on 11-10-2023 Urea nitrogen [Mass/Vol] 14 mg/dL Normal 7-25 [facility] Comment on above: Performed By: #### T 4F, [id number], CBC, TSH3, CMP, [id number], MG ####[address] [place] [address] [facility] Urine Cultureon 11-10-2023 Bacteria identified Cx Nom (U) Normal [facility] Comment on above: Performed By: #### A SUSAN OFRMAN ####[place] [address] Urine appearanceOrdered By: Reynold Daily on 11-10-2023 Appearance (U) Clear Normal Clear [facility] Comment on above: Order Comment: Name Collection Type:: Clean-Voided Midstream Performed By: #### A DDONUAPLUS, CUU ####[address] Urine culture routineOrdered By: Reynold Daily on 11-10-2023 Bacteria identified Cx Nom (U) 2 Days [facility] Urobilinogen Test strip (U) [Mass/Vol]Ordered By: Reynold Daily on 11-10-2023 Urobilinogen (U) [Mass/Vol] Normal mg/dL Normal [facility] Vit. B12/Folate Profileon Folate Normal >5.9 [facility] Comment on above: Result Comment: Spec imen hemolyzed, redraw requested Folate reference range: >5.9 ng/ml The WHO technical consultation on folate and vitamin b12 deficiencies has determined that folate concentrations less than 4 ng/ml are considered deficient. Performed By: #### T 4F, [id number], CBC, TSH3, CMP, [id number], MG ####[address] Vitamin B12 Normal 180-914 [facility] Comment on above: Result Comment: Spec imen hemolyzed, redraw requested Performed By: #### T 4F, [id number], CBC, TSH3, CMP, [id number], MG ####[place] [id number] [facility] Vitamin B12 ser/plasOrdered By: Kirt Renae on 11-10-2023 Cobalamin (Vitamin B12) [Mass/Vol] 306 pg/mL Normal 180-914 [facility] Comment on above: Order Comment: SPECI MEN HEMOLYZED. NOTIFIED MANSOOR Performed By: #### R EDRAW B12, REDRAW FOLATE ####[place] [id number] [facility] Vitamin D 25 Hydroxy Totalon 11-10-2023 Vitamin D 25 Hydroxy Total 61.3 ng/mL Normal 30-100 [facility] Comment on above: Result Comment: Hemo lysis is present at a level that could interfere with the result. Contact lab if redraw is required VITAMIN D STATUS 25(OH)VITAMIN D RANGE (ng/mL) Deficient <20 Insufficient 20 to <30 Sufficient 30 to 100 Reference: Felisha Huerta, Leon SHERWOOD, et al. Evaluation,treatment, and prevention of vitamin D deficiency; an Endocrine Society clinical practice guideline. JCEM. 2010; 96(7):1911-.PERFORMED BY:[address] [place], [place] [phone] MEDICAL DIRECTORSADAF STANTON M.D. Performed By: #### T 4F, [id number], CBC, TSH3, CMP, [id number], MG ####[facility] [address] [place] [address] [facility] Vitamin D+Metabolites [Mass/ volume] in Serum or PlasmaOrdered By: Jluis Campos on 11-10-2023 Vitamin D+Metabolites [Mass/Vol] 61.3 ng/mL 30-100 [facility] Comment on above: Hemolysis is present at a level that could interfere with the result.Contact lab if redraw is requiredVITAMIN D STATUS 25(OH)VITAMIN D RANGE (ng/mL) Deficient <20 Insufficient 20 to <30Sufficient 30 to 100Reference: Felisha Huerta, Leon SHERWOOD, et al. Evaluation,treatment, and prevention of vitamin D deficiency; an Endocrine Society clinical practice guideline. JCEM. 2010; 96(7):1911-30. pH of Urine by Test stripOrd ered By: Reynold Daily on 11-10-2023 pH (U) 6.0 [pH] Normal 5.0-9.0 [facility] Comment on above: Order Comment: Name Collection Type:: Clean-Voided Midstream Performed By: #### A DDONUAPLUS, CUU ####[facility] [place] [address] [facility] Capillary blood glucose steve urement by glucometer (mass/volume)Ordered By: OSORIO WHITE on 11-09-2023 Glucose [Mass/Vol] 139 mg/dL Normal [facility] Comment on above: Random Glucose Refer ence Range is dependent on time and content of last meal. Glucose of more than 200 mg/dL in a nonstressed, ambulatory subject supports the diagnosis of Diabetes Mellitus. Result Comment: [place] om Glucose Reference Range is dependent on time and content of last meal. Glucose of more than 200 mg/dL in a nonstressed, ambulatory subject supports the diagnosis of Diabetes Mellitus.PERFORMED BY:[address] [place], [place] [phone] MEDICAL DIRECTORSADAF STANTON M.D. Performed By: #### G LULOIDA ####Point of Care testing, ECG 12 lead ECGon 11-09-2023 ECG 12 lead ECG Normal [facility] Carbon dioxide, total [Moles /volume] in Serum or PlasmaOrdered By: Jonas Ch on 11-05-2023 CO2 [Moles/Vol] 28.6 mmol/L Normal 21.0-31.0 [facility] Comment on above: Performed By: #### L YTES ####[address] [place] [address] [facility] Chloride [Moles/volume] in S elliot or PlasmaOrdered By: Jonas Ch on 11-05-2023 Chloride [Moles/Vol] 104 mmol/L Normal 98-107 [facility] Comment on above: Performed By: #### L YTES ####[address] [place] [address] [facility] ECG 12 lead ECGon 11-05-2023 ECG 12 lead ECG Normal [facility] ECG post procedureon 024 ECG post procedure Normal [facility] Potassium [Moles/volume] in Serum or PlasmaOrdered By: Jonas Ch on 11-05-2023 Potassium [Moles/Vol] 4.6 mmol/L Normal 3.5-5.1 [facility] Comment on above: Performed By: #### L YTES ####[address] [address] [facility] Serum or plasma anion gap de terminationOrdered By: Jonas Ch on 11-05-2023 Anion gap [Moles/Vol] 11.0 mmol/L Normal 6.0-15.0 [facility] Comment on above: Result Comment: PERF ORMED BY:[address] [place], [place] [phone] MEDICAL DIRECTORSADAF STANTON M.D. Performed By: #### L YTES ####[address] [address] [facility] Sodium [Moles/volume] in Ser um or PlasmaOrdered By: Jonas Ch on 11-05-2023 Sodium [Moles/Vol] 139 mmol/L Normal 136-145 [facility] Comment on above: Performed By: #### L YTES ####[place] [id number] [facility] A1C with Estimated Average G evelynn 10-30-2023 Glucose [Mass/Vol] 143 mg/dL Normal [facility] Comment on above: Result Comment: PERF ORMED BY:[address] [place], [place] [phone] MEDICAL DIRECTORSADAF STANTON M.D. Performed By: #### C K, AST, ALT, [id number], T4F, HSCRP, A1C WTH eA, ESR, TSH3 ####[place] [id number] [facility]#### LYME AB wRFX, LH, LACTATE PYRUVAT, HOMOCYS PL, NATASHA SERUM, RA, BEATRICE, ZINC,WB, ALDOLASE, NATASHA,URINE, WEST TANK, MORTEZA, CERULOP, RPR W RFX, METH, UPE RAND, SPE, VITB6 ####[facility] , BEATRICE Antinuclear Antibodieson 10-30-2023 Antinuclear Abs, IFA Positive Critically abnormal . [facility] Comment on above: Result Comment: Nega tive <1:80 Borderline 1:80 Positive >1:80 Performed By: #### C K, AST, ALT, [id number], T4F, HSCRP, A1C WTH eA, ESR, TSH3 ####[facility] [address] [id number] [facility]#### LYME AB wRFX, LH, LACTATE PYRUVAT, HOMOCYS PL, NATASHA SERUM, RA, BEATRICE, ZINC,WB, ALDOLASE, NATASHA,URINE, WEST TANK, MORTEZA, CERULOP, RPR W RFX, METH, UPE RAND, SPE, VITB6 ####[facility] , Note 1 Normal . [facility] Comment on above: Result Comment: Gayatri kaufman Potential Disease Association Homogeneous Systemic Lupus Erythematosus, Drug Induced Systemic Lupus Erythematosus, Chronic Autoimmune hepatitis, Juvenile Idiopathic Arthritis Speckled Sjogren Syndrome, Systemic Lupus Erythematosus, Subacute Cutaneous Lupus, Lupus, Congenital Heart Block, Mixed Connective Tissue Disease, Scleroderma-diffuse, Scleroderma-Autoimmune Myositis Overlap Syndrome, Systemic Lupus Ugpwftgubnsjj-Hfjgobevnxk-Jhppwrcnao Myositis Overlap Syndrome, Systemic Autoimmune Rheumatic Disease, [...] Linear Scleroderma, Antiphospholipid Syndrome Performed at: - [facility] [address] [id number] Glass Carrier: Christine Pham MD, Phone: [phone] Performed at: - [facility] [address] [id number] Glass Carrier: Yuri Osullivan PhD, Phone: [phone] Pattern Potential Disease Association Homogeneous Systemic Lupus Erythematosus, Drug Induced Systemic Lupus Erythematosus, Chronic Autoimmune hepatitis, Juvenile Idiopathic Arthritis Speckled Sjogren Syndrome, Systemic Lupus Erythematosus, Subacute Cutaneous Lupus, Lupus, Congenital Heart Block, Mixed Connective Tissue Disease, Scleroderma-diffuse, Scleroderma-Autoimmune Myositis Overlap Syndrome, Systemic Lupus Wehcyszvcqlab-Nfgwdrrnvlj-Ksmroqiims Myositis Overlap Syndrome, Systemic Autoimmune Rheumatic Disease, [...] Cytopenias, Linear Scleroderma, Antiphospholipid Syndrome Performed at: [address] [id number] Glass Carrier: Yuri Osullivan PhD, Phone: [phone] Performed at: [facility] [address] [id number] Glass Carrier: Christine Pham MD, Phone: [phone] --- 11/06/23 1236 --- BEATRICE IFA Note 1 previously reported as: Pattern Potential Disease Association Homogeneous Systemic Lupus Erythematosus, Drug Induced Systemic Lupus Erythematosus, Chronic Autoimmune hepatitis, Juvenile Idiopathic Arthritis Speckled Sjogren Syndrome, Systemic Lupus Erythematosus, Subacute Cutaneous Lupus, Lupus, Congenital Heart Block, Mixed Connective Tissue Disease, Scleroderma-diffuse, Scleroderma-Autoimmune Myositis Overlap Syndrome, Systemic Lupus Ibqbnebcpaiaf-Lneamhubwxa-Kwsufpqsaw Myositis Overlap Syndrome, Systemic Autoimmune Rheumatic Disease, [...] Linear Scleroderma, Antiphospholipid Syndrome Performed at: - [facility] [id number] Glass Carrier: Christine Pham MD, Phone: [phone] Performed at: [facility] [id number] Glass Carrier: Yuri Osullivan PhD, Phone: [phone] Performed By: #### C K, AST, ALT, [id number], T4F, HSCRP, A1C WTH eA, ESR, TSH3 ####[facility] [place] [address] [place]#### LYME AB wRFX, LH, LACTATE PYRUVAT, HOMOCYS PL, NATASHA SERUM, RA, BEATRICE, ZINC,WB, ALDOLASE, NATASHA,URINE, WEST TANK, MORTEZA, CERULOP, RPR W RFX, METH, UPE RAND, SPE, VITB6 ####[facility] , Speckled Pattern 1:80 Normal . [facility] Comment on above: Result Comment: ICAP nomenclature: [id number] Performed By: #### C K, AST, ALT, [id number], T4F, HSCRP, A1C WTH eA, ESR, TSH3 ####[facility] [address] [place] [address] [place]#### LYME AB wRFX, LH, LACTATE PYRUVAT, HOMOCYS PL, NATASHA SERUM, RA, BEATRICE, ZINC,WB, ALDOLASE, NATASHA,URINE, WEST TANK, MORTEZA, CERULOP, RPR W RFX, METH, UPE RAND, SPE, VITB6 ####[facility] , Alanine aminotransferase [En zymatic activity/volume] in Serum or PlasmaOrdered By: Oz Kincaid on 10-30-2023 ALT [Catalytic activity/Vol] 23 U/L Normal 7-52 [facility] Comment on above: Performed By: #### C K, AST, ALT, [id number], T4F, HSCRP, A1C WTH eA, ESR, TSH3 ####[place] [address] [place] [address] [place]#### LYME AB wRFX, LH, LACTATE PYRUVAT, HOMOCYS PL, NATASHA SERUM, RA, BEATRICE, ZINC,WB, ALDOLASE, NATASHA,URINE, WEST TANK, MORTEZA, CERULOP, RPR W RFX, METH, UPE RAND, SPE, VITB6 ####[facility] , Albumin [Mass/volume] in Ser um or PlasmaOrdered By: Oz Kincaid on 10-30-2023 Albumin [Mass/Vol] 4.2 g/dL Normal 2.9-4.4 [facility] Comment on above: Performed By: #### C K, AST, ALT, [id number], T4F, HSCRP, A1C WTH eA, ESR, TSH3 ####[facility] [place] [address] [place]#### LYME AB wRFX, LH, LACTATE PYRUVAT, HOMOCYS PL, NATASHA SERUM, RA, BEATRICE, ZINC,WB, ALDOLASE, NATASHA,URINE, WEST TANK, MORTEZA, CERULOP, RPR W RFX, METH, UPE RAND, SPE, VITB6 ####[facility] , Albumin/Protein.total in 24 hour Urine by ElectrophoresisOrdered By: Oz Kincaid on 10-30-2023 Albumin Elph (24H U) [Mass fraction] 35.7 % . [facility] Aldolaseon 10-30-2023 Aldolase 5.0 U/L Normal 3.3-10.3 [facility] Comment on above: Result Comment: Perf ormed at: - [facility] [address] [id number] Glass Carrier: Yuri Osullivan PhD, Phone: [phone] BY:[address] [place], [place] [id number] MEDICAL DIRECTORSDAAF STANTON M.D. Performed By: #### C K, AST, ALT, [id number], T4F, HSCRP, A1C WTH eA, ESR, TSH3 ####[address]#### LYME AB wRFX, LH, LACTATE PYRUVAT, HOMOCYS PL, NATASHA SERUM, RA, BEATRICE, ZINC,WB, ALDOLASE, NATASHA,URINE, WEST TANK, MORTEZA, CERULOP, RPR W RFX, METH, UPE RAND, SPE, VITB6 ####[facility] , Alpha tocopherol [Mass/volum e] in Serum or PlasmaOrdered By: Oz Kincaid on 10-30-2023 Alpha tocopherol [Mass/Vol] 8.7 mg/L Low 9.0-29.0 [facility] Comment on above: This test was develo ped and its performance characteristicsdetermined by [facility]. It has not been cleared orapproved by the Food and Drug Administration. Aspartate aminotransferase [ Enzymatic activity/volume] in Serum or PlasmaOrdered By: Oz Kincaid on 10-30-2023 AST [Catalytic activity/Vol] 26 U/L Normal 13-39 [facility] Comment on above: Performed By: #### C K, AST, ALT, [id number], T4F, HSCRP, A1C WTH eA, ESR, TSH3 ####[address] [address] [facility]#### LYME AB wRFX, LH, LACTATE PYRUVAT, HOMOCYS PL, NATASHA SERUM, RA, BEATRICE, ZINC,WB, ALDOLASE, NATASHA,URINE, WEST TANK, MORTEZA, CERULOP, RPR W RFX, METH, UPE RAND, SPE, VITB6 ####[facility] , Borrelia burgdorferi Ab [Int erpretation] in SerumOrdered By: Oz Kincaid on 10-30-2023 B. burgdorferi Ab (S) [Interp] N/A [facility] Borrelia burgdorferi IgG Ab [Presence] in Serum or Plasma by ImmunoassayOrdered By: Oz Chaparrita on 10-30-2023 B. burgdorferi IgG IA Ql N/A [facility] Borrelia burgdorferi IgG+IgM Ab [Presence] in Serum by ImmunoassayOrdered By: Oz Chaparrita on 10-30-2023 B. burgdorferi IgG+IgM IA Ql (S) Negative Negative [facility] Comment on above: Lyme antibodies not detected. Reflex testing is notindicated.No laboratory evidence of infection with B. burgdorferi(Lyme disease). Negative results may occur in patientsrecently infected (less than or equal to 14 days) with B.burgdorferi. If recent infection is suspected, repeattesting on a new sample collected in 7 to 14 days isrecommended.Performed at: [facility] [address] [id number] Director: Yuri Osullivan PhD, Phone: [phone] Lyme antibodies not detected. Reflex testing is notindicated.No laboratory evidence of infection with B. burgdorferi(Lyme disease). Negative results may occur in patientsrecently infected (less than or equal to 14 days) with B.burgdorferi. If recent infection is suspected, repeattesting on a new sample collected in 7 to 14 days isrecommended.Performed at: [facility] [address] [id number] Director: Yuri Osullivan PhD, Phone: [phone] Lyme antibodies not detected. Reflex testing is [...] in 7 to 14 days isrecommended.Performed at: [facility] [id number] [place], [place] [id number] Director: Yuri Osullivan PhD, Phone: [phone] Borrelia burgdorferi IgM Ab [Presence] in Serum or Plasma by ImmunoassayOrdered By: Oz Kincaid on 10-30-2023 B. burgdorferi IgM IA Ql N/A [facility] C reactive protein [Mass/vol ume] in Serum or Plasma by High sensitivity methodOrdered By: Oz Kincaid on 10-30-2023 CRP High sensitivity method [Mass/Vol] 2.2 mg/L High 0.0-0.9 [facility] Comment on above: Cardiovascular Risk Classification [...] on 10-30-2023 CT biopsy 5.0 U/L 3.3-10.3 [facility] Comment on above: Performed at: [facility] [address] [id number] Director: Yuri Osullivan PhD, Phone: [phone] Ceruloplasminon 10-30-2023 Ceruloplasmin 30.1 mg/dL Normal 19.0-39.0 [facility] Comment on above: Result Comment: Perf ormed at: [facility] [place] [address] [place], [place] [id number] Glass Carrier: Yuri Osullivan PhD, Phone: [phone] BY:[place] [address] [address] [place], [place] [phone] MEDICAL DIRECTORSADAF STANTON M.D. Performed By: #### C K, AST, ALT, [id number], T4F, HSCRP, A1C WTH eA, ESR, TSH3 ####[place] [id number] [facility]#### LYME AB wRFX, LH, LACTATE PYRUVAT, HOMOCYS PL, NATASHA SERUM, RA, BEATRICE, ZINC,WB, ALDOLASE, NATASHA,URINE, WEST TANK, MORTEZA, CERULOP, RPR W RFX, METH, UPE RAND, SPE, VITB6 ####[facility] , Creatine kinase [Enzymatic a ctivity/volume] in Serum or PlasmaOrdered By: Oz Kincaid on 10-30-2023 CK [Catalytic activity/Vol] 46 U/L Normal 30-223 [facility] Comment on above: Result Comment: PERF ORMED BY:[address] [place], [place] [phone] MEDICAL DIRECTORSDAAF STANTON M.D. Performed By: #### C K, AST, ALT, [id number], T4F, HSCRP, A1C WT eA, ESR, TSH3 ####[place] [id number] [facility]#### LYME AB wRFX, LH, LACTATE PYRUVAT, HOMOCYS PL, NATASHA SERUM, RA, BEATRICE, ZINC,WB, ALDOLASE, NATASHA,URINE, WEST TANK, MORTEZA, CERULOP, RPR W RFX, METH, UPE RAND, SPE, VITB6 ####[facility] , Erythrocyte Sedimentation Ra abner 10-30-2023 ESR (Bld) [Velocity] 26 mm/h Normal 0-29 [facility] Comment on above: Result Comment: PERF ORMED BY:[place] [address] [address] [place], [place] [phone] MEDICAL DIRECTORSADAF STANTON M.D. Performed By: #### C K, AST, ALT, [id number], T4F, HSCRP, A1C WTH eA, ESR, TSH3 ####[place] [id number] [place]#### LYME AB wRFX, LH, LACTATE PYRUVAT, HOMOCYS PL, NATASHA SERUM, RA, BEATRICE, ZINC,WB, ALDOLASE, NATASHA,URINE, WEST TANK, MORTEZA, CERULOP, RPR W RFX, METH, UPE RAND, SPE, VITB6 ####[facility] , Erythrocyte sedimentation ra te by Photometric methodOrdered By: Oz Kincaid on 10-30-2023 ESR Photometric method (Bld) [Velocity] 26 mm/hr 0-29 [facility] Folate [Mass/volume] in Seru m or PlasmaOrdered By: Oz Kincaid on 10-30-2023 Folate [Mass/Vol] 34.0 ng/mL >5.9 [facility] Comment on above: Folate reference ran ge: >5.9 ng/mlThe WHO technical consultation on folate and vitamin [id number] has determined that folate concentrations lessthan 4 ng/ml are considered deficient. Gamma globulin/Protein.total in 24 hour Urine by ElectrophoresisOrdered By: Oz Kincaid on 10-30-2023 Gamma globulin Elph (24H U) [Mass fraction] 23.2 % . [facility] Gamma-tocopherol measurement (mass/volume)Ordered By: Oz Kincaid on 10-30-2023 Gamma tocopherol [Mass/Vol] 0.7 mg/L 0.5-4.9 [facility] Comment on above: This test was develo ped and its performance characteristicsdetermined by [facility]. It has not been cleared orapproved by the Food and Drug Administration.Reference intervals for alpha and gamma-tocopheroldetermined from National Health and Nutrition ExaminationSurvey, 4877-2641. Individuals with alpha-tocopherol levelsless than 5.0 mg/L are considered vitamin E deficient. Glucose mean value [Mass/vol ume] in Blood Estimated from glycated hemoglobinOrdered By: Oz Kincaid on 10-30-2023 Average glucose Estimated from glycated hemoglobin (Bld) [Mass/Vol] 143 mg/dL [facility] Hemoglobin A1c percentageOrd ered By: Oz Kincaid on 10-30-2023 HbA1c (Bld) [Mass fraction] 6.6 % High 4.3-5.6 [facility] Comment on above: Increased risk for d iabetes: 5.7 - 6.4diabetes: >6.4glycemic control for adults with diabetes: <7.0 Result Comment: Incr eased risk for diabetes: 5.7 - 6.4 diabetes: >6.4 glycemic control for adults with diabetes: <7.0 Performed By: #### C K, AST, ALT, [id number], T4F, HSCRP, A1C WTH eA, ESR, TSH3 ####[facility] [place] [address]70 [facility]#### LYME AB wRFX, LH, LACTATE PYRUVAT, HOMOCYS PL, NATASHA SERUM, RA, BEATRICE, ZINC,WB, ALDOLASE, NATASHA,URINE, WEST TANK, MORTEZA, CERULOP, RPR W RFX, METH, UPE RAND, SPE, VITB6 ####[facility] , High Sensitive CRPon 07-03-2 024 High Sensitive CRP 2.2 mg/L High 0.0-0.9 [facility] Comment on above: Result Comment: [...] this marker for estimation of CVD risk.PERFORMED BY:[address] [place], [place] [phone] MEDICAL DIRECTORSADAF STANTON M.D. Performed By: #### C K, AST, ALT, [id number], T4F, HSCRP, A1C WTH eA, ESR, TSH3 ####[place] [id number] [facility]#### LYME AB wRFX, LH, LACTATE PYRUVAT, HOMOCYS PL, NATASHA SERUM, RA, BEATRICE, ZINC,WB, ALDOLASE, NATASHA,URINE, WEST TANK, MORTEZA, CERULOP, RPR W RFX, METH, UPE RAND, SPE, VITB6 ####[facility] , Homocysteine, Plasma/Serumon 10-30-2023 Homocysteine, Plasma/Serum 20.7 umol/L High 0.0-17.2 [facility] Comment on above: Result Comment: Perf ormed at: - [facility] [place] [id number] [place], [place] [id number] Glass Carrier: Yuri Osullivan PhD, Phone: [phone] Performed By: #### C K, AST, ALT, [id number], T4F, HSCRP, A1C WTH eA, ESR, TSH3 ####[facility] [address]#### LYME AB wRFX, LH, LACTATE PYRUVAT, HOMOCYS PL, NATASHA SERUM, RA, BEATRICE, ZINC,WB, ALDOLASE, NATASHA,URINE, WEST TANK, MORTEZA, CERULOP, RPR W RFX, METH, UPE RAND, SPE, VITB6 ####[facility] , IgA [Mass/volume] in Serum o r PlasmaOrdered By: Oz Kincaid on 10-30-2023 IgA [Mass/Vol] 265 mg/dL 87-352 [facility] IgG [Mass/volume] in Serum o r PlasmaOrdered By: Oz Kincaid on 10-30-2023 IgG [Mass/Vol] 1034 mg/dL 586-1602 [facility] IgM [Mass/volume] in Serum o r PlasmaOrdered By: Oz Kincaid on 10-30-2023 IgM [Mass/Vol] 48 mg/dL 26-217 [facility] Comment on above: Performed at: [facility] [address] [id number] Director: Yuri Osullivan PhD, Phone: [phone] Immunofixation for UrineOrde red By: Oz Kincaid on 10-30-2023 Interpretation Immunofixation (U) [Interp] See comment . [facility] Comment on above: No monoclonality det ected.Performed at: [facility] [address] [place], [place] [id number] Director: Yuri Osullivan PhD, Phone: [phone] Immunofixation, (NATASHA), Urine on 10-30-2023 Immunofixation, (NATASHA), Urine Normal . [facility] Comment on above: Result Comment: No m onoclonality detected. Performed at: [facility] [address] [id number] Glass Carrier: Yuri Osullivan PhD, Phone: [phone] Performed By: #### C K, AST, ALT, [id number], T4F, HSCRP, A1C WTH eA, ESR, TSH3 ####[address]#### LYME AB wRFX, LH, LACTATE PYRUVAT, HOMOCYS PL, NATASHA SERUM, RA, BEATRICE, ZINC,WB, ALDOLASE, NATASHA,URINE, WEST TANK, MORTEZA, CERULOP, RPR W RFX, METH, UPE RAND, SPE, VITB6 ####[facility] , Immunofixation,Serumon 10-29 Immunofixation, Serum Normal . [facility] Comment on above: Result Comment: No m onoclonality detected. Performed By: #### C K, AST, ALT, [id number], T4F, HSCRP, A1C WTH eA, ESR, TSH3 ####[address]#### LYME AB wRFX, LH, LACTATE PYRUVAT, HOMOCYS PL, NATASHA SERUM, RA, BEATRICE, ZINC,WB, ALDOLASE, NATASHA,URINE, WEST TANK, MORTEZA, CERULOP, RPR W RFX, METH, UPE RAND, SPE, VITB6 ####[facility] , Immunoglobulin A, Serum 265 mg/dL Normal 87-352 [facility] Comment on above: Performed By: #### C K, AST, ALT, [id number], T4F, HSCRP, A1C WTH eA, ESR, TSH3 ####[address]#### LYME AB wRFX, LH, LACTATE PYRUVAT, HOMOCYS PL, NATASHA SERUM, RA, BEATRICE, ZINC,WB, ALDOLASE, NATASHA,URINE, WEST TANK, MORTEZA, CERULOP, RPR W RFX, METH, UPE RAND, SPE, VITB6 ####[facility] , Immunoglobulin G 1034 mg/dL Normal [phone] [facility] Comment on above: Performed By: #### C K, AST, ALT, [id number], T4F, HSCRP, A1C WTH eA, ESR, TSH3 ####[place] [address]#### LYME AB wRFX, LH, LACTATE PYRUVAT, HOMOCYS PL, NATASHA SERUM, RA, BEATRICE, ZINC,WB, ALDOLASE, NATASHA,URINE, WEST TANK, MORTEZA, CERULOP, RPR W RFX, METH, UPE RAND, SPE, VITB6 ####[facility] , Immunoglobulin M, Serum 48 mg/dL Normal 26-217 [facility] Comment on above: Result Comment: Perf ormed at: - [facility] [address] [id number] Glass Carrier: Yuri Osullivan PhD, Phone: [phone] Performed By: #### C K, AST, ALT, [id number], T4F, HSCRP, A1C WTH eA, ESR, TSH3 ####[place] [address]#### LYME AB wRFX, LH, LACTATE PYRUVAT, HOMOCYS PL, NATASHA SERUM, RA, BEATRICE, ZINC,WB, ALDOLASE, NATASHA,URINE, WEST TANK, MORTEZA, CERULOP, RPR W RFX, METH, UPE RAND, SPE, VITB6 ####[facility] , Lactate and Pyruvateon 10-29 Lactic Acid, Plasma Normal . [facility] Comment on above: Result Comment: Test not performed. Supernatant is required. CONTACTED YOUR FACILity on 11-05-2023 Performed By: #### C K, AST, ALT, [id number], T4F, HSCRP, A1C WTH eA, ESR, TSH3 ####[place] [id number] [facility]#### LYME AB wRFX, LH, LACTATE PYRUVAT, HOMOCYS PL, NATASHA SERUM, RA, BEATRICE, ZINC,WB, ALDOLASE, NATASHA,URINE, WEST TANK, MORTEZA, CERULOP, RPR W RFX, METH, UPE RAND, SPE, VITB6 ####[facility] , Pyruvic Acid, Blood Normal . [facility] Comment on above: Result Comment: Test not performedPERFORMED BY:[address] [place]itz[place], [place] [id number] MEDICAL DIRECTORSADAF STANTON M.D. Performed By: #### C K, AST, ALT, [id number], T4F, HSCRP, A1C WTH eA, ESR, TSH3 ####[place] [id number] [facility]#### LYME AB wRFX, LH, LACTATE PYRUVAT, HOMOCYS PL, NATASHA SERUM, RA, BEATRICE, ZINC,WB, ALDOLASE, NATASHA,URINE, WEST TANK, MORTEZA, CERULOP, RPR W RFX, METH, UPE RAND, SPE, VITB6 ####[facility] , Luteinizing Hormoneon 2023 Luteinizing Hormone 60.4 m[iU]/mL High 7.7-58.5 [facility] Comment on above: Result Comment: Adul t Female Range Follicular phase 2.4 - 12.6 Ovulation phase 14.0 - 95.6 Luteal phase 1.0 - 11.4 Postmenopausal 7.7 - 58.5 Performed By: #### C K, AST, ALT, [id number], T4F, HSCRP, A1C WTH eA, ESR, TSH3 ####[place] [id number] [facility]#### LYME AB wRFX, LH, LACTATE PYRUVAT, HOMOCYS PL, NATASHA SERUM, RA, BEATRICE, ZINC,WB, ALDOLASE, NATASHA,URINE, WEST TANK, MORTEZA, CERULOP, RPR W RFX, METH, UPE RAND, SPE, VITB6 ####[facility] , Lyme, Total Ab with Reflexon 10-30-2023 Lyme Total Antibody Negative Normal Negative [facility] Comment on above: Result [...] to 14 days is recommended. Performed at: [facility] [employer] [id number] Glass Carrier: Yuri Osullivan PhD, Phone: [phone] Lyme antibodies not detected. Reflex testing is [...] to 14 days is recommended. Performed at: [address] [id number] Glass Carrier: Yuri Osullivan PhD, Phone: [phone] Performed By: #### C K, AST, ALT, [id number], T4F, HSCRP, A1C WTH eA, ESR, TSH3 ####[facility] Hym[address]#### LYME AB wRFX, LH, LACTATE PYRUVAT, HOMOCYS PL, NATASHA SERUM, RA, BEATRICE, ZINC,WB, ALDOLASE, NATASHA,URINE, WEST TANK, MORTEZA, CERULOP, RPR W RFX, METH, UPE RAND, SPE, VITB6 ####[facility] , Methylmalonic Acidon 024 Methylmalonic Acid 247 Normal 0-378 [facility] Comment on above: Result Comment: This test was developed and its performance characteristics determined by [facility]. It has not been cleared or approved by the Food and Drug Administration. Performed at: [facility] [employer] [id number] Glass Carrier: Christine Pham MD, Phone: [phone] This test was developed and its performance characteristics determined by [facility]. It has not been cleared or approved by the Food and Drug Administration. --- 11/06/23 1236 --- Methylmal Acid previously reported as: 247 nmol/L This test was developed and its performance characteristics determined by [facility]. It has not been cleared or approved by the Food and Drug Administration. Performed at: [facility] [employer] [id number] Glass Carrier: Christine Pham MD, Phone: [phone] Performed By: #### C K, AST, ALT, [id number], T4F, HSCRP, A1C WTH eA, ESR, TSH3 ####[facility] [id number]#### LYME AB wRFX, LH, LACTATE PYRUVAT, HOMOCYS PL, NATASHA SERUM, RA, BEATRICE, ZINC,WB, ALDOLASE, NATASHA,URINE, WEST TANK, MORTEZA, CERULOP, RPR W RFX, METH, UPE RAND, SPE, VITB6 ####[facility] , No Panel InformationOrdered By: Oz Kincaid on 10-30-2023 Anti-Nuclear Antibody Comment 2 See comment . [facility] Comment on above: Pattern Potential Di sease Association Homogeneous Systemic Lupus Erythematosus, Drug Induced Systemic Lupus Erythematosus, Chronic Autoimmune hepatitis, Juvenile Idiopathic Arthritis Speckled Sjogren Syndrome, Systemic Lupus Erythematosus, Subacute Cutaneous Lupus, Lupus, Congenital Heart Block, Mixed Connective Tissue Disease, Scleroderma-diffuse, Scleroderma-Autoimmune Myositis Overlap Syndrome, Systemic Lupus Ehadbmrizuflm-Aqtrmxckwqr-Omadpspqdf Myositis Overlap Syndrome, Systemic Autoimmune Rheumatic Disease, [...] Linear Scleroderma, Antiphospholipid Syndrome Performed at: - [facility] [address] [id number] Director: Christine Pham MD, Phone: [phone] at: - [facility] [id number] [place], [place] [id number] Director: Yuri Osullivan PhD, Phone: [phone] Pattern Potential Di [facility] Association Homogeneous Systemic Lupus Erythematosus, Drug Induced Systemic Lupus Erythematosus, Chronic Autoimmune hepatitis, Juvenile Idiopathic Arthritis Speckled Sjogren Syndrome, Systemic Lupus Erythematosus, Subacute Cutaneous Lupus, Lupus, Congenital Heart Block, Mixed Connective Tissue Disease, Scleroderma-diffuse, Scleroderma-Autoimmune Myositis Overlap Syndrome, Systemic Lupus Vlwrqpqifwian-Olqpoipzamz-Hnsrcyoelg Myositis Overlap Syndrome, Systemic Autoimmune Rheumatic Disease, [...] Cytopenias, Linear Scleroderma, Antiphospholipid Syndrome Performed at: [employer] [facility] [address] [id number] Director: Christine Pham MD, Phone: [phone] at: [facility] [id number] Director: Yuri Osullivan PhD, Phone: [phone] Pattern Potential Disease Association Homogeneous Systemic Lupus Erythematosus, Drug Induced Systemic Lupus Erythematosus, Chronic Autoimmune hepatitis, Juvenile Idiopathic Arthritis Speckled Sjogren Syndrome, Systemic Lupus Erythematosus, Subacute Cutaneous Lupus, Lupus, Congenital Heart Block, Mixed Connective Tissue Disease, Scleroderma-diffuse, Scleroderma-Autoimmune Myositis Overlap Syndrome, Systemic Lupus Imvlwetekfffr-Apfrqauczag-Zabesyjsip Myositis Overlap Syndrome, Systemic Autoimmune Rheumatic Disease, [...] Cytopenias, Linear Scleroderma, Antiphospholipid Syndrome Performed at: [facility] [place], [place] [id number] Director: Yuri Osullivan PhD, Phone: [phone] at: [facility] [employer] [id number] Director: Christine Pham MD, Phone: [phone] --- 11/06/23 1236 ---BEATRICE ELLIS Note 1 previously reported as: Pattern Potential Disease Association Homogeneous Systemic Lupus Erythematosus, Drug Induced Systemic Lupus Erythematosus, Chronic Autoimmune hepatitis, Juvenile Idiopathic Arthritis Speckled Sjogren Syndrome, Systemic Lupus Erythematosus, Subacute Cutaneous Lupus, Lupus, Congenital Heart Block, Mixed Connective Tissue Disease, Scleroderma-diffuse, Scleroderma-Autoimmune Myositis Overlap Syndrome, Systemic Lupus Zfkdegtylorkz-Wieypeajfbl-Qwepysbvir Myositis Overlap Syndrome, Systemic Autoimmune Rheumatic Disease, [...] (more content not included)... Lactate/Pyruvate Interpretation N/A [facility] Plasma Lactic Acid, Venous See comment . [facility] Comment on above: Test not performed. Supernatant is required.CONTACTED YOUR FACILity on 11-05-2023 Protein Electrophoresis M-Meir Not observed g/dL Not Observed [facility] Protein Electrophoresis Note See comment . [facility] Comment on above: Protein electrophore sis scan will follow via computer,mail, or aquarium specialist delivery. Pyruvic Acid See comment . [facility] Comment on above: Test not performed Serum Immunofixation See comment . [facility] Comment on above: No monoclonality det ected. Urine Random Prot Electrophor Note See comment . [facility] Comment on above: Protein electrophore sis scan will follow via computer,mail, or aquarium specialist delivery.Performed at: [facility] [employer] [id number] Director: Yuri Osullivan PhD, Phone: [phone] Whole Blood Zinc 909 ug/dL High 440-860 [facility] Comment on above: This test was develo ped and its performance characteristicsdetermined by [facility]. It has not been cleared orapproved by the Food and Drug Administration.Performed at: [facility] [employer] [id number] Director: Christine Pham MD, Phone: [phone] This test was develo ped and its performance characteristicsdetermined by [facility]. It has not been cleared orapproved by the Food and Drug Administration.Performed at: [facility] [employer] [id number] Director: Christine Pham MD, Phone: [phone] This test was developed and its performance characteristicsdetermined by [facility]. It has not been cleared orapproved by the Food and Drug Administration. --- 11/06/23 1236 ---Zinc,WB previously reported as: 909 H ug/dLThis test was developed and its performance characteristicsdetermined by [facility]. It has not been cleared orapproved by the Food and Drug Administration.Performed at: [facility] [employer] [id number] Director: Christine Pham MD, Phone: [phone] Protein Electro, Random Urin marta 10-30-2023 Albumin, Urine 35.7 % Normal . [facility] Comment on above: Performed By: #### C K, AST, ALT, [id number], T4F, HSCRP, A1C WTH eA, ESR, TSH3 ####[address]#### LYME AB wRFX, LH, LACTATE PYRUVAT, HOMOCYS PL, NATASHA SERUM, RA, BEATRICE, ZINC,WB, ALDOLASE, NATASHA,URINE, WEST TANK, MORTEZA, CERULOP, RPR W RFX, METH, UPE RAND, SPE, VITB6 ####[facility] , Vslst-7-Vnowzwac, Urine 0.4 % Normal . [facility] Comment on above: Performed By: #### C K, AST, ALT, [id number], T4F, HSCRP, A1C WTH eA, ESR, TSH3 ####[address]#### LYME AB wRFX, LH, LACTATE PYRUVAT, HOMOCYS PL, NATASHA SERUM, RA, BEATRICE, ZINC,WB, ALDOLASE, NATASHA,URINE, WEST TANK, MORTEZA, CERULOP, RPR W RFX, METH, UPE RAND, SPE, VITB6 ####[facility] , Jojgo-0-Ycfhobde, Urine 8.9 % Normal . [facility] Comment on above: Performed By: #### C K, AST, ALT, [id number], T4F, HSCRP, A1C WTH eA, ESR, TSH3 ####[place] [address] [place]#### LYME AB wRFX, LH, LACTATE PYRUVAT, HOMOCYS PL, NATASHA SERUM, RA, BEATRICE, ZINC,WB, ALDOLASE, NATASHA,URINE, WEST TANK, MORTEZA, CERULOP, RPR W RFX, METH, UPE RAND, SPE, VITB6 ####[facility] , Beta Globulin, Urine 31.7 % Normal . [facility] Comment on above: Performed By: #### C K, AST, ALT, [id number], T4F, HSCRP, A1C WTH eA, ESR, TSH3 ####[address]#### LYME AB wRFX, LH, LACTATE PYRUVAT, HOMOCYS PL, NATASHA SERUM, RA, BEATRICE, ZINC,WB, ALDOLASE, NATASHA,URINE, WEST TANK, MORTEZA, CERULOP, RPR W RFX, METH, UPE RAND, SPE, VITB6 ####[facility] , Gamma Globulin, Urine 23.2 % Normal . [facility] Comment on above: Performed By: #### C K, AST, ALT, [id number], T4F, HSCRP, A1C WTH eA, ESR, TSH3 ####[address]#### LYME AB wRFX, LH, LACTATE PYRUVAT, HOMOCYS PL, NATASHA SERUM, RA, BEATRICE, ZINC,WB, ALDOLASE, NATASHA,URINE, WEST TANK, MORTEZA, CERULOP, RPR W RFX, METH, UPE RAND, SPE, VITB6 ####[facility] , M-Meir % Not Observed Normal Not Observed [facility] Comment on above: Performed By: #### C K, AST, ALT, [id number], T4F, HSCRP, A1C WTH eA, ESR, TSH3 ####[address]#### LYME AB wRFX, LH, LACTATE PYRUVAT, HOMOCYS PL, NATASHA SERUM, RA, BEATRICE, ZINC,WB, ALDOLASE, NATASHA,URINE, WEST TANK, MORTEZA, CERULOP, RPR W RFX, METH, UPE RAND, SPE, VITB6 ####[facility] , Please Note: Normal . [facility] Comment on above: Result Comment: Prot ein electrophoresis scan will follow via computer, mail, or aquarium specialist delivery. Performed at: - [facility] [id number] Glass Carrier: Yuri Osullivan PhD, Phone: [phone] BY:[address] [place], [place] [id number] MEDICAL DIRECTORSADAF STANTON M.D. Performed By: #### C K, AST, ALT, [id number], T4F, HSCRP, A1C WTH eA, ESR, TSH3 ####[address]#### LYME AB wRFX, LH, LACTATE PYRUVAT, HOMOCYS PL, NATASHA SERUM, RA, BEATRICE, ZINC,WB, ALDOLASE, NATASHA,URINE, WEST TANK, MORTEZA, CERULOP, RPR W RFX, METH, UPE RAND, SPE, VITB6 ####[facility] , Protein Electrophoresis, Ser umon 10-30-2023 Cnjeo-1-Rsybtwwi 0.3 g/dL Normal 0.0-0.4 [facility] Comment on above: Performed By: #### C K, AST, ALT, [id number], T4F, HSCRP, A1C WTH eA, ESR, TSH3 ####[address]#### LYME AB wRFX, LH, LACTATE PYRUVAT, HOMOCYS PL, NATASHA SERUM, RA, BEATRICE, ZINC,WB, ALDOLASE, NATASHA,URINE, WEST TANK, MORTEZA, CERULOP, RPR W RFX, METH, UPE RAND, SPE, VITB6 ####[facility] , Mqkrt-3-Reihxxkd 1.0 g/dL Normal 0.4-1.0 [facility] Comment on above: Performed By: #### C K, AST, ALT, [id number], T4F, HSCRP, A1C WTH eA, ESR, TSH3 ####[place] [address] [place]#### LYME AB wRFX, LH, LACTATE PYRUVAT, HOMOCYS PL, NATASHA SERUM, RA, BEATRICE, ZINC,WB, ALDOLASE, NATASHA,URINE, WEST TANK, MORTEZA, CERULOP, RPR W RFX, METH, UPE RAND, SPE, VITB6 ####[facility] , Beta Globulin 1.1 g/dL Normal 0.7-1.3 [facility] Comment on above: Performed By: #### C K, AST, ALT, [id number], T4F, HSCRP, A1C WTH eA, ESR, TSH3 ####[address]#### LYME AB wRFX, LH, LACTATE PYRUVAT, HOMOCYS PL, NATASHA SERUM, RA, BEATRICE, ZINC,WB, ALDOLASE, NATASHA,URINE, WEST TANK, MORTEZA, CERULOP, RPR W RFX, METH, UPE RAND, SPE, VITB6 ####[facility] , Gamma Globulin 1.1 g/dL Normal 0.4-1.8 [facility] Comment on above: Performed By: #### C K, AST, ALT, [id number], T4F, HSCRP, A1C WTH eA, ESR, TSH3 ####[address]#### LYME AB wRFX, LH, LACTATE PYRUVAT, HOMOCYS PL, NATASHA SERUM, RA, BEATRICE, ZINC,WB, ALDOLASE, NATASHA,URINE, WEST TANK, MORTEZA, CERULOP, RPR W RFX, METH, UPE RAND, SPE, VITB6 ####[facility] , M-Meir Not Observed Normal Not Observed [facility] Comment on above: Performed By: #### C K, AST, ALT, [id number], T4F, HSCRP, A1C WTH eA, ESR, TSH3 ####[place] [address] [place]#### LYME AB wRFX, LH, LACTATE PYRUVAT, HOMOCYS PL, NATASHA SERUM, RA, BEATRICE, ZINC,WB, ALDOLASE, NATASHA,URINE, WEST TANK, MORTEZA, CERULOP, RPR W RFX, METH, UPE RAND, SPE, VITB6 ####[facility] , SPE-Note Normal . [facility] Comment on above: Result Comment: Prot ein electrophoresis scan will follow via computer, mail, or aquarium specialist delivery. Performed By: #### C K, AST, ALT, [id number], T4F, HSCRP, A1C WTH eA, ESR, TSH3 ####[facility] [id number]#### LYME AB wRFX, LH, LACTATE PYRUVAT, HOMOCYS PL, NATASHA SERUM, RA, BEATRICE, ZINC,WB, ALDOLASE, NATASHA,URINE, WEST TANK, MORTEZA, CERULOP, RPR W RFX, METH, UPE RAND, SPE, VITB6 ####[facility] , Protein [Mass/volume] in Ser um or PlasmaOrdered By: Oz Kincaid on 10-30-2023 Protein [Mass/Vol] 7.7 g/dL Normal 6.0-8.5 [facility] Comment on above: Performed By: #### C K, AST, ALT, [id number], T4F, HSCRP, A1C WTH eA, ESR, TSH3 ####[facility] [place] [address] [place]#### LYME AB wRFX, LH, LACTATE PYRUVAT, HOMOCYS PL, NATASHA SERUM, RA, BEATRICE, ZINC,WB, ALDOLASE, NATASHA,URINE, WEST TANK, MORTEZA, CERULOP, RPR W RFX, METH, UPE RAND, SPE, VITB6 ####[facility] , Protein [Mass/volume] in Uri neOrdered By: Oz Kincaid on 10-30-2023 Protein (U) [Mass/Vol] 28.8 mg/dL Normal Not Estab. [facility] Comment on above: Performed By: #### C K, AST, ALT, [id number], T4F, HSCRP, A1C WTH eA, ESR, TSH3 ####[facility]#### LYME AB wRFX, LH, LACTATE PYRUVAT, HOMOCYS PL, NATASHA SERUM, RA, BEATRICE, ZINC,WB, ALDOLASE, NATASHA,URINE, WEST TANK, MORTEZA, CERULOP, RPR W RFX, METH, UPE RAND, SPE, VITB6 ####[facility] , Protein.monoclonal/Protein.t otal in 24 hour Urine by ElectrophoresisOrdered By: Oz Kincaid on 10-30-2023 Protein.monoclonal Elph (24H U) [Mass fraction] Not observed % Not Observed [facility] RPR w/rfx to Quant TP Abson 10-30-2023 RPR, Rfx Quant RPR Non-Reactive Normal Non Reactive [facility] Comment on above: Result Comment: Perf ormed at: [facility] [id number] Glass Carrier: Yuri Osullivan PhD, Phone: [phone] BY:[address] [place], [place] [phone] MEDICAL DIRECTORSADAF STANTON M.D. Performed By: #### C K, AST, ALT, [id number], T4F, HSCRP, A1C WT eA, ESR, TSH3 ####[place] [address] [address]#### LYME AB wRFX, LH, LACTATE PYRUVAT, HOMOCYS PL, NATASHA SERUM, RA, BEATRICE, ZINC,WB, ALDOLASE, NATASHA,URINE, WEST TANK, MORTEZA, CERULOP, RPR W RFX, METH, UPE RAND, SPE, VITB6 ####[facility] , Reagin Ab [Presence] in Seru m by RPROrdered By: Oz Kincaid on 10-30-2023 Reagin Ab RPR Ql (S) Non-Reactive Non Reactive [facility] Comment on above: Performed at: [facility] [address], [place] [id number] Director: Yuri Osullivan PhD, Phone: [phone] Rheumatoid Factoron 10-30-19 Rheumatoid Factor <10.0 Normal <14.0 [facility] Comment on above: Performed By: #### C K, AST, ALT, [id number], T4F, HSCRP, A1C WTH eA, ESR, TSH3 ####[place] [address] [address]#### LYME AB wRFX, LH, LACTATE PYRUVAT, HOMOCYS PL, NATASHA SERUM, RA, BEATRICE, ZINC,WB, ALDOLASE, NATASHA,URINE, WEST TANK, MORTEZA, CERULOP, RPR W RFX, METH, UPE RAND, SPE, VITB6 ####[facility] , Serum West Nile virus IgG an tibody detection by immunoassayOrdered By: Oz Kincaid on 10-30-2023 West Nile virus IgG IA Ql (S) Negative Negative [facility] Serum West Nile virus IgM an tibody detection by immunoassayOrdered By: Oz Kincaid on 10-30-2023 West Nile virus IgM IA Ql (S) Negative Negative [facility] Comment on above: Performed at: - [address] [id number] Director: Christine Pham MD, Phone: [phone] Serum globulin measurement ( mass/volume)Ordered By: Oz Kincaid on 10-30-2023 Globulin (S) [Mass/Vol] 3.5 g/dL Normal 2.2-3.9 F [facility] Comment on above: Performed By: #### C K, AST, ALT, [id number], T4F, HSCRP, A1C WTH eA, ESR, TSH3 ####[place] [address] [place] [address] [place]#### LYME AB wRFX, LH, LACTATE PYRUVAT, HOMOCYS PL, NATASHA SERUM, RA, BEATRICE, ZINC,WB, ALDOLASE, NATASHA,URINE, WEST TANK, MORTEZA, CERULOP, RPR W RFX, METH, UPE RAND, SPE, VITB6 ####[facility] , Serum homogeneous pattern an tinuclear antibody (BEATRICE) titerOrdered By: Oz Kincaid on 10-30-2023 Homogenous nuclear Ab pattern (S) [Titer] N/A [facility] Serum nuclear antibody titer Ordered By: Oz Kincaid on 10-30-2023 Nuclear Ab (S) [Titer] Positive Abnormal . [facility] Comment on above: Negative <1:80 Borde rline 1:80 Positive >1:80 Serum or plasma albumin/glob ulin mass ratioOrdered By: Oz Kincaid on 10-30-2023 Albumin/Globulin [Mass ratio] 1.2 {ratio} Normal 0.7-1.7 [facility] Comment on above: Performed By: #### C K, AST, ALT, [id number], T4F, HSCRP, A1C WTH eA, ESR, TSH3 ####[facility] [id number] [address]#### LYME AB wRFX, LH, LACTATE PYRUVAT, HOMOCYS PL, NATASHA SERUM, RA, BEATRICE, ZINC,WB, ALDOLASE, NATASHA,URINE, WEST TANK, MORTEZA, CERULOP, RPR W RFX, METH, UPE SOPHIE, KEARA, VITB6 ####[facility] , Serum or plasma alpha 1 glob ulin measurement by electrophoresis (mass/volume)Ordered By: Oz Kincaid on 10-30-2023 Alpha 1 globulin Elph [Mass/Vol] 0.3 g/dL 0.0-0.4 [facility] Serum or plasma alpha 2 glob ulin measurement by electrophoresis (mass/volume)Ordered By: Oz Kincaid on 10-30-2023 Alpha 2 globulin Elph [Mass/Vol] 1.0 g/dL 0.4-1.0 [facility] Serum or plasma beta globuli n measurement by electrophoresis (mass/volume)Ordered By: Oz Kincaid on 10-30-2023 Beta globulin Elph [Mass/Vol] 1.1 g/dL 0.7-1.3 [facility] Serum or plasma ceruloplasmi n measurement (mass/volume)Ordered By: Oz Kincaid on 10-30-2023 Ceruloplasmin [Mass/Vol] 30.1 mg/dL 19.0-39.0 [facility] Comment on above: Performed at: [facility] [employer] [address] [id number] Director: Yuri Osullivan PhD, Phone: [phone] Serum or plasma gamma globul in measurement by electrophoresis (mass/volume)Ordered By: Oz Kincaid on 10-30-2023 Gamma globulin Elph [Mass/Vol] 1.1 g/dL 0.4-1.8 [facility] Serum or plasma homocysteine measurement (moles/volume)Ordered By: Oz Kincaid on 10-30-2023 Homocysteine [Moles/Vol] 20.7 umol/L High 0.0-17.2 [facility] Comment on above: Performed at: [facility] [employer] [address] [id number] Director: Yuri Osullivan PhD, Phone: [phone] Serum or plasma lutropin coleman surement (units/volume)Ordered By: Oz Kincaid on 10-30-2023 Lutropin Qn 60.4 m[IU]/mL High 7.7-58.5 [facility] Comment on above: Adult Female Range F ollicular phase 2.4 - 12.6 Ovulation phase 14.0 - 95.6 Luteal phase 1.0 - 11.4 Postmenopausal 7.7 - 58.5 Serum or plasma methylmalona te measurement (moles/volume)Ordered By: Oz Kincaid on 10-30-2023 Methylmalonate [Moles/Vol] 247 nmol/L 0-378 [facility] Comment on above: This test was develo ped and its performance characteristicsdetermined by [facility]. It has not been cleared orapproved by the Food and Drug Administration.Performed at: [facility] [employer] [id number] Director: Christine Pham MD, Phone: [phone] This test was develo ped and its performance characteristicsdetermined by [facility]. It has not been cleared orapproved by the Food and Drug Administration.Performed at: [facility] [employer] [id number] Director: Christine Pham MD, Phone: [phone] This test was developed and its performance characteristicsdetermined by [employer]. It has not been cleared orapproved by the Food and Drug Administration. --- 11/06/23 1236 ---Methylmal Acid previously reported as: 247 nmol/LThis test was developed and its performance characteristicsdetermined by [facility]. It has not been cleared orapproved by the Food and Drug Administration.Performed at: [address] [id number] Director: Christine Pham MD, Phone: [phone] Serum or plasma pyridoxine m easurement (mass/volume)Ordered By: Oz Kincaid on 10-30-2023 Pyridoxine [Mass/Vol] 8.8 ug/L 3.4-65.2 [facility] Comment on above: This test was develo ped and its performance characteristicsdetermined by [facility]. It has not been cleared orapproved by the Food and Drug Administration. Deficiency: <3.4 Marginal: 3.4 - 5.1 Adequate: >5.1Performed at: [address] [id number] Director: Christine Pham MD, Phone: [phone] Serum or plasma rheumatoid f actor measurement (units/volume)Ordered By: Oz Kincaid on 10-30-2023 Rheumatoid factor Qn [IU]/mL <14.0 [facility] Serum speckled pattern antin uclear antibody (BEATRICE) titerOrdered By: Oz Kincaid on 10-30-2023 Speckled nuclear Ab pattern (S) [Titer] 1:80 . [facility] Comment on above: ICAP nomenclature: A C-2,4,5,29 Thyrotropin [Units/volume] i n Serum or PlasmaOrdered By: Oz Kincaid on 10-30-2023 TSH Qn 6.38 m[IU]/L High 0.45-5.33 [facility] Comment on above: Result Comment: PERF ORMED BY:[facility] [place], [place] [phone] MEDICAL DIRECTORSADAF STANTON M.D. Performed By: #### C K, AST, ALT, [id number], T4F, HSCRP, A1C WTH eA, ESR, TSH3 ####[facility] [place] [address] [place]#### LYME AB wRFX, LH, LACTATE PYRUVAT, HOMOCYS PL, NATASHA SERUM, RA, BEATRICE, ZINC,WB, ALDOLASE, NATASHA,URINE, WEST TANK, MORTEZA, CERULOP, RPR W RFX, METH, UPE RAND, SPE, VITB6 ####[facility] , Thyroxine (T4) free [Mass/vo lume] in Serum or PlasmaOrdered By: Oz Kincaid on 10-30-2023 Free T4 [Mass/Vol] 0.89 ng/dL Normal 0.61-1.12 [facility] Comment on above: Performed By: #### C K, AST, ALT, [id number], T4F, HSCRP, A1C WTH eA, ESR, TSH3 ####[facility] [place] [address] [place]#### LYME AB wRFX, LH, LACTATE PYRUVAT, HOMOCYS PL, NATASHA SERUM, RA, BEATRICE, ZINC,WB, ALDOLASE, NATASHA,URINE, WEST TANK, MORTEZA, CERULOP, RPR W RFX, METH, UPE RAND, SPE, VITB6 ####[facility] , Urine alpha 1 globulin/total protein by electrophoresisOrdered By: Oz Kincaid on 10-30-2023 Alpha 1 globulin Elph (U) [Mass fraction] 0.4 % . [facility] Urine alpha 2 globulin/total protein ratio by electrophoresisOrdered By: Oz Kincaid on 10-30-2023 Alpha 2 globulin Elph (U) [Mass fraction] 8.9 % . [facility] Urine beta globulin measurem ent by electrophoresis (mass/volume)Ordered By: zO Kincaid on 10-30-2023 Beta globulin Elph (U) [Mass/Vol] 31.7 % . [facility] Vit. B12/Folate Profileon Folate 34.0 ng/mL Normal >5.9 [facility] Comment on above: Result Comment: Meera te reference range: >5.9 ng/ml The WHO technical consultation on folate and vitamin b12 deficiencies has determined that folate concentrations less than 4 ng/ml are considered deficient. Performed By: #### C K, AST, ALT, [id number], T4F, HSCRP, A1C WTH eA, ESR, TSH3 ####[facility] [address] [place] [address] [place]#### LYME AB wRFX, LH, LACTATE PYRUVAT, HOMOCYS PL, NATASHA SERUM, RA, BEATRICE, ZINC,WB, ALDOLASE, NATASHA,URINE, WEST TANK, MORTEZA, CERULOP, RPR W RFX, METH, UPE RAND, SPE, VITB6 ####[facility] , Vitamin B12 ser/plasOrdered By: Oz Kincaid on 10-30-2023 Cobalamin (Vitamin B12) [Mass/Vol] 300 pg/mL Normal 180-914 [facility] Comment on above: Performed By: #### C K, AST, ALT, [id number], T4F, HSCRP, A1C WTH eA, ESR, TSH3 ####[facility] [address] [place] [address] [place]#### LYME AB wRFX, LH, LACTATE PYRUVAT, HOMOCYS PL, NATASHA SERUM, RA, BEATRICE, ZINC,WB, ALDOLASE, NATASHA,URINE, WEST TANK, MORTEZA, CERULOP, RPR W RFX, METH, UPE RAND, SPE, VITB6 ####[facility] , Vitamin B6on 10-30-2023 Vitamin B6 8.8 Normal 3.4-65.2 [facility] Comment on above: Result Comment: This test was developed and its performance characteristics determined by [facility]. It has not been cleared or approved by the Food and Drug Administration. Deficiency: <3.4 Marginal: 3.4 - 5.1 Adequate: >5.1 Performed at: [address] [id number] Glass Carrier: Christine Pham MD, Phone: [phone] BY:[address] [place], [place] [id number] MEDICAL DIRECTORSADAF STANTON M.D. Performed By: #### C K, AST, ALT, [id number], T4F, HSCRP, A1C WTH eA, ESR, TSH3 ####[place] [address] [address]#### LYME AB wRFX, LH, LACTATE PYRUVAT, HOMOCYS PL, NATASHA SERUM, RA, BEATRICE, ZINC,WB, ALDOLASE, NATASHA,URINE, WEST TANK, MORTEZA, CERULOP, RPR W RFX, METH, UPE RAND, SPE, VITB6 ####[facility] , Vitamin E, Alpha Gamma Tocop on 10-30-2023 Vitamin E Alpha Tocopherol 8.7 mg/L Low 9.0-29.0 [facility] Comment on above: Result Comment: This test was developed and its performance characteristics determined by [facility]. It has not been cleared or approved by the Food and Drug Administration. Performed By: #### C K, AST, ALT, [id number], T4F, HSCRP, A1C WTH eA, ESR, TSH3 ####[place] [address] [address]#### LYME AB wRFX, LH, LACTATE PYRUVAT, HOMOCYS PL, NATASHA SERUM, RA, BEATRICE, ZINC,WB, ALDOLASE, NATASHA,URINE, WEST TANK, MORTEZA, CERULOP, RPR W RFX, METH, UPE RAND, SPE, VITB6 ####[facility] , Vitamin E GammaTocopherol 0.7 mg/L Normal 0.5-4.9 [facility] Comment on above: Result Comment: This test was developed and its performance characteristics determined by [facility]. It has not been cleared or approved by the Food and Drug Administration. Reference intervals for alpha and gamma-tocopherol determined from National Health and Nutrition Examination Survey, 7676-8357. Individuals with alpha-tocopherol levels less than 5.0 mg/L are considered vitamin E deficient. Performed By: #### C K, AST, ALT, [id number], T4F, HSCRP, A1C WTH eA, ESR, TSH3 ####[address]#### LYME AB wRFX, LH, LACTATE PYRUVAT, HOMOCYS PL, NATASHA SERUM, RA, BEATRICE, ZINC,WB, ALDOLASE, NATASHA,URINE, WEST TANK, MORTEZA, CERULOP, RPR W RFX, METH, UPE RAND, SPE, VITB6 ####[facility] , West Nile Virus Antibodies, Son 10-30-2023 West Nile Virus Antibody IgG S Negative Normal Negative [facility] Comment on above: Performed By: #### C K, AST, ALT, [id number], T4F, HSCRP, A1C WTH eA, ESR, TSH3 ####[address]#### LYME AB wRFX, LH, LACTATE PYRUVAT, HOMOCYS PL, NATASHA SERUM, RA, BEATRICE, ZINC,WB, ALDOLASE, NATASHA,URINE, WEST TANK, MORTEZA, CERULOP, RPR W RFX, METH, UPE RAND, SPE, VITB6 ####[facility] , West Nile Virus Antibody IgM S Negative Normal Negative [facility] Comment on above: Result Comment: Perf ormed at: - [facility] [address] [id number] Glass Carrier: Christine Pham MD, Phone: [phone] Performed By: #### C K, AST, ALT, [id number], T4F, HSCRP, A1C WTH eA, ESR, TSH3 ####[address]#### LYME AB wRFX, LH, LACTATE PYRUVAT, HOMOCYS PL, NATASHA SERUM, RA, BEATRICE, ZINC,WB, ALDOLASE, NATASHA,URINE, WEST TANK, MORTEZA, CERULOP, RPR W RFX, METH, UPE RAND, SPE, VITB6 ####[facility] , XR lumbar spine 6V w bending on 10-30-2023 XR lumbar spine 6V w bending Normal [facility] Zinc, Whole Bloodon 10-30-19 24 Zinc, Whole Blood 909 ug/dL High [phone] [facility] Comment on above: Result Comment: This test was developed and its performance characteristics determined by [facility]. It has not been cleared or approved by the Food and Drug Administration. Performed at: [facility] [id number] Glass Carrier: Christine Pham MD, Phone: [phone] This test was developed and its performance characteristics determined by [facility]. It has not been cleared or approved by the Food and Drug Administration. --- 11/06/23 1236 --- Zinc,WB previously reported as: 909 H ug/dL This test was developed and its performance characteristics determined by [facility]. It has not been cleared or approved by the Food and Drug Administration. Performed at: [facility] [id number] Glass Carrier: Christine Pham MD, Phone: [phone] Performed By: #### C K, AST, ALT, [id number], T4F, HSCRP, A1C WTH eA, ESR, TSH3 ####[facility] [id number] [place] [id number] [facility]#### LYME AB wRFX, LH, LACTATE PYRUVAT, HOMOCYS PL, NATASHA SERUM, RA, BEATRICE, ZINC,WB, ALDOLASE, NATASHA,URINE, [place], MORTEZA, CERULOP, RPR W RFX, METH, UPE RAND, SPE, VITB6 ####[facility] , Capillary blood glucose steve urement by glucometer (mass/volume)Ordered By: Elva Florian on 09-14-2023 Glucose [Mass/Vol] 134 mg/dL Normal [facility] Comment on above: Random Glucose Refer ence Range is dependent on time and content of last meal. Glucose of more than 200 mg/dL in a nonstressed, ambulatory subject supports the diagnosis of Diabetes Mellitus. Result Comment: [place] Glucose Reference Range is dependent on time and content of last meal. Glucose of more than 200 mg/dL in a nonstressed, ambulatory subject supports the diagnosis of Diabetes Mellitus.PERFORMED BY:[address] [address] [address] [place], [place] [phone] MEDICAL DIRECTORSADAF STANTON M.D. Performed By: #### G LULS ####Point of Care testing, Glucose Poct Glucometerson 0 09-14-2023 Glucose [Mass/Vol] 168 mg/dL Normal [facility] Comment on above: Result Comment: [facility] Glucose Reference Range is dependent on time and content of last meal. Glucose of more than 200 mg/dL in a nonstressed, ambulatory subject supports the diagnosis of Diabetes Mellitus.PERFORMED BY:[address] [address] [address] LAURELMitziKenishaGR[place], [place] [phone] MEDICAL DIRECTORSADAF STANTON M.D. Performed By: #### G LULS ####Point of Care testing, Commemt1 Glu2: Cleaned Meter Normal [facility] Comment on above: Result Comment: PERF ORMED BY:[address] [address] [address] AMATOK[place], [place] [phone] MEDICAL DIRECTORSADAF STANTON M.D. Performed By: #### G LULS ####Point of Care testing, Glucose [Mass/Vol] 131 mg/dL Normal [facility] Comment on above: Result Comment: [facility] Glucose Reference Range is dependent on time and content of last meal. Glucose of more than 200 mg/dL in a nonstressed, ambulatory subject supports the diagnosis of Diabetes Mellitus. Performed By: #### G LULS ####Point of Care testing, No Panel InformationOrdered By: Elva Florian on 09-14-2023 Bedside Glucose Comment Glu2: cleaned meter [facility] Cholesterol [Mass/volume] in Serum or PlasmaOrdered By: Elva Florian on 09-13-2023 Cholesterol [Mass/Vol] 125 mg/dL Low 140-200 [facility] Comment on above: Chol less than 200 m g/dl low riskChol 201-239 mg/dl borderline riskChol 240 mg/dl and greater high risk Result Comment: Chol less than 200 mg/dl low risk Chol 201-239 mg/dl borderline risk Chol 240 mg/dl and greater high risk Performed By: #### T SH3, LIPID, MG ####[facility] [address] [place] [address] [place] Cholesterol in LDL Calc [Mas s/Vol]Ordered By: Elva Florian on 09-13-2023 Cholesterol in LDL [Mass/Vol] 59 mg/dL 0-100 [facility] Comment on above: LDL ATP III CLASSIFI CATIONLDL less than 100 mg/dL OptimalLDL 100-129 mg/dL Near or above optimalLDL 130-159 mg/dL Borderline highLDL 160-189 mg/dL HighLDL greater than 189 mg/dL Very high Cholesterol in VLDL Calc [Ma ss/Vol]Ordered By: Elva Florian on 09-13-2023 Cholesterol in VLDL [Mass/Vol] 39 mg/dL [facility] ECH echo transthoracicon ECH echo transthoracic Normal Th e [facility] Glucose Poct Glucometerson 0 09-13-2023 Commemt1 Glu2: Cleaned Meter Normal [facility] Comment on above: Result Comment: PERF ORMED BY:[facility] [place], [place] [phone] MEDICAL DIRECTORSADAF STANTON M.D. Performed By: #### G LULS ####Point of Care testing, Glucose [Mass/Vol] 149 mg/dL Normal [facility] Comment on above: Result Comment: [place] Glucose Reference Range is dependent on time and content of last meal. Glucose of more than 200 mg/dL in a nonstressed, ambulatory subject supports the diagnosis of Diabetes Mellitus. Performed By: #### G LULS ####Point of Care testing, Glucose [Mass/Vol] 141 mg/dL Normal [facility] Comment on above: Result Comment: [place] [facility] Glucose Reference Range is dependent on time and content of last meal. Glucose of more than 200 mg/dL in a nonstressed, ambulatory subject supports the diagnosis of Diabetes Mellitus.PERFORMED BY:[address] [place], [place] [phone] MEDICAL DIRECTORSADAF STANTON M.D. Performed By: #### G LULS ####Point of Care testing, Glucose [Mass/Vol] 177 mg/dL Normal [facility] Comment on above: Result Comment: [place] Glucose Reference Range is dependent on time and content of last meal. Glucose of more than 200 mg/dL in a nonstressed, ambulatory subject supports the diagnosis of Diabetes Mellitus.PERFORMED BY:[address] [place], [place] [phone] MEDICAL DIRECTORSADAF STANTON M.D. Performed By: #### G LULS ####Point of Care testing, Glucose [Mass/Vol] 140 mg/dL Normal [facility] Comment on above: Result Comment: [place] Glucose Reference Range is dependent on time and content of last meal. Glucose of more than 200 mg/dL in a nonstressed, ambulatory subject supports the diagnosis of Diabetes Mellitus.PERFORMED BY:[address] [place], [place] [phone] MEDICAL DIRECTORSADAF STANTON M.D. Performed By: #### G LULS ####Point of Care testing, Lipid Panelon 09-13-2023 LDL Cholesterol,Calculated 59 mg/dL Normal 0-100 [facility] Comment on above: Result Comment: LDL ATP III CLASSIFICATION LDL less than 100 mg/dL Optimal LDL 100-129 mg/dL Near or above optimal LDL 130-159 mg/dL Borderline high LDL 160-189 mg/dL High LDL greater than 189 mg/dL Very high Performed By: #### T SH3, LIPID, MG ####[address] [address] [facility] Triglyceride w/Reflex 198 mg/dL High 0-149 [facility] Comment on above: Result Comment: TRIG ATP III CLASSIFICATION TRIG less than 150 mg/dL Normal TRIG 150-199 mg/dL Borderline high TRIG 200-500 mg/dL High TRIG greater than 500 mg/dL Very high Standard traceable to the Center for Disease Conrtrol and Prevention (CDC) test method. Performed By: #### T SH3, LIPID, MG ####[place] [address] VLDL CHOLESTEROL 39 mg/dL Normal [facility] Comment on above: Performed By: #### T SH3, LIPID, MG ####[address] Magnesium [Mass/volume] in S elliot or PlasmaOrdered By: Elva Florian on 09-13-2023 Magnesium [Mass/Vol] 1.6 mg/dL Low 1.9-2.7 [facility] Comment on above: Performed By: #### T SH3, LIPID, MG ####[place] [address] Serum or plasma high density lipoprotein (HDL) cholesterol measurementOrdered By: Elva Florian on 09-13-2023 Cholesterol in HDL [Mass/Vol] 26 mg/dL Normal 23-92 [facility] Comment on above: HDL CHOL ATP-III CLA SSIFICATION Cardiovascular RiskHDL > or equal to 60 mg/dL LOWHDL < 40 mg/dL HIGH Result Comment: HDL CHOL ATP-III CLASSIFICATION Cardiovascular Risk HDL > or equal to 60 mg/dL LOW HDL < 40 mg/dL HIGH Performed By: #### T SH3, LIPID, MG ####[address] Serum or plasma total choles terol/high density lipoprotein (HDL) cholesterol mass ratOrdered By: Elva Florian on 09-13-2023 Cholesterol.total/Monica sterol in HDL [Mass ratio] 4.8 {ratio} Normal <5.0 [facility] Comment on above: Result Comment: PERF ORMED BY:[address] [place], [place] [phone] MEDICAL GEENA STANTON M.D. Performed By: #### T SH3, LIPID, MG ####[address] Thyrotropin [Units/volume] i n Serum or PlasmaOrdered By: Elva Florian on 09-13-2023 TSH Qn 2.48 m[IU]/L Normal 0.45-5.33 [facility] Comment on above: Result Comment: PERF ORMED BY:[address] [address] [address] [place]LBENNYW[place], [place] [phone] MEDICAL DIRECTORSADAF STANTON M.D. Performed By: #### T SH3, LIPID, MG ####[facility] [address] [place] [address] [facility] Triglyceride [Mass/volume] i n Serum or PlasmaOrdered By: Elva Irenadeepa on 09-13-2023 Triglyceride [Mass/Vol] 198 mg/dL High 0-149 [facility] Comment on above: TRIG ATP III CLASSIF [...] Coag (PPP) [Time] 29.3 s 25.1-36.5 [facility] Comment on above: A hematocrit value g reater than 55% may lead to inaccurate results in coagulation testing. Patients having hematocrit values >55% require a special collection tube for coagulation studies. Please contact the laboratory at [phone] for redraw instructions. Automated basophil %Ordered By: Edgar Valenzuela on 09-12-2023 Basophils/100 WBC (Bld) 0.9 % Normal . [facility] Comment on above: Performed By: #### B MP, HS TROP, CK, CBC, BNP, PTT, PT ####[facility] [place] [address] [facility] Automated basophil countOrde red By: Edgar Valenzuela on 09-12-2023 Basophils (Bld) [#/Vol] 0.1 10*3/uL Normal 0.0-0.2 [facility] Comment on above: Result Comment: PERF ORMED BY:[address] [place], [place] [phone] MEDICAL DIRECTORSADAF STANTON M.D. Performed By: #### B MP, HS TROP, CK, CBC, BNP, PTT, PT ####[address] Automated blood monocyte cou ntOrdered By: Edgar Valenzuela on 09-12-2023 Monocytes (Bld) [#/Vol] 0.6 10*3/uL Normal 0.0-0.8 [facility] Comment on above: Performed By: #### B MP, HS TROP, CK, CBC, BNP, PTT, PT ####[address] Automated eosinophil %Ordere d By: Edgar Valenzuela on 09-12-2023 Eosinophils/100 WBC (Bld) 1.7 % Normal . [facility] Comment on above: Performed By: #### B MP, HS TROP, CK, CBC, BNP, PTT, PT ####[address] Automated eosinophil countOr dered By: Edgar Valenzuela on 09-12-2023 Eosinophils (Bld) [#/Vol] 0.2 10*3/uL Normal 0.0-0.45 [facility] Comment on above: Performed By: #### B MP, HS TROP, CK, CBC, BNP, PTT, PT ####[address] Automated monocyte %Ordered By: Edgar Valenzuela on 09-12-2023 Monocytes/100 WBC (Bld) 5.9 % Normal . [facility] Comment on above: Performed By: #### B MP, HS TROP, CK, CBC, BNP, PTT, PT ####[address] Automated neutrophil %Ordere d By: Edgar Valenzuela on 09-12-2023 Neutrophils/100 WBC (Bld) 71.3 % Normal . [facility] Comment on above: Performed By: #### B MP, HS TROP, CK, CBC, BNP, PTT, PT ####[address] [place] [address] [facility] BNP ser/plasOrdered By: Edgar Valenzuela on 09-12-2023 Natriuretic peptide B (Bld) [Mass/Vol] 112.0 pg/mL High 5-100 [facility] Comment on above: Result Comment: PERF ORMED BY:[address] [address] [address] LAURELMitziKenisha[place], [place] [phone] MEDICAL DIRECTORSADAF STANTON M.D. Performed By: #### B MP, HS TROP, CK, CBC, BNP, PTT, PT ####[address] [place] [address] [facility] Basic Metabolic Panelon 08-27 Creatinine Clr Calc Pharmacy 73.11 Normal [facility] Comment on above: Result Comment: PERF ORMED BY:[address] [place], [place] [phone] MEDICAL DIRECTORSADAF STANTON M.D. Performed By: #### B MP, HS TROP, CK, CBC, BNP, PTT, PT ####[address] [address] [facility] GFR/1.73 sq M.predicted MDRD (S/P/Bld) [Vol rate/Area] mL/min/{1.73_m2} Normal [facility] Comment on above: Performed By: #### B MP, HS TROP, CK, CBC, BNP, PTT, PT ####[place] [id number] [facility] Calcium [Mass/volume] in Ser um or PlasmaOrdered By: Edgar Valenzuela on 09-12-2023 Calcium [Mass/Vol] 10.5 mg/dL High 8.6-10.3 [facility] Comment on above: Performed By: #### B MP, HS TROP, CK, CBC, BNP, PTT, PT ####[place] [id number] [facility] Carbon dioxide, total [Moles /volume] in Serum or PlasmaOrdered By: Edgar Valenzuela on 09-12-2023 CO2 [Moles/Vol] 25.0 mmol/L Normal 21.0-31.0 [facility] Comment on above: Performed By: #### B MP, HS TROP, CK, CBC, BNP, PTT, PT ####[address] Chloride [Moles/volume] in S elliot or PlasmaOrdered By: Edgar Valenzuela on 09-12-2023 Chloride [Moles/Vol] 102 mmol/L Normal 98-107 [facility] Comment on above: Performed By: #### B MP, HS TROP, CK, CBC, BNP, PTT, PT ####[address] Complete Blood Count Auto Di ffon 09-12-2023 Mean Corpuscular HGB Conc 34.2 g/dL Normal 32.0-35.0 [facility] Comment on above: Performed By: #### B MP, HS TROP, CK, CBC, BNP, PTT, PT ####[address] Monocytes/100 WBC (Bld) 19.90 % Normal 0.00-20.00 [facility] Comment on above: Performed By: #### B MP, HS TROP, CK, CBC, BNP, PTT, PT ####[address] NRBC% 0.2 /100{WBC} Normal 0-0.5 [facility] Comment on above: Performed By: #### B MP, HS TROP, CK, CBC, BNP, PTT, PT ####[place] [id number] [facility] Creatine kinase [Enzymatic a ctivity/volume] in Serum or PlasmaOrdered By: Edgar Valenzuela on 09-12-2023 CK [Catalytic activity/Vol] 45 U/L Normal 30-223 [facility] Comment on above: Performed By: #### B MP, HS TROP, CK, CBC, BNP, PTT, PT ####[place] [id number] [facility] Creatinine [Mass/volume] in Serum or PlasmaOrdered By: Edgar Valenzuela on 09-12-2023 Creatinine [Mass/Vol] 0.84 mg/dL Normal 0.60-1.20 [facility] Comment on above: Performed By: #### B MP, HS TROP, CK, CBC, BNP, PTT, PT ####[place] [address] [place] [id number] [facility] ECG 12 lead ECGon 09-12-2023 ECG 12 lead ECG Normal [facility] Erythrocyte distribution wid th [Ratio] by Automated countOrdered By: Edgar Valenzuela on 09-12-2023 Erythrocyte distribution width (RBC) [Ratio] 12.7 % Normal 11.9-15.3 [facility] Comment on above: Performed By: #### B MP, HS TROP, CK, CBC, BNP, PTT, PT ####[place] [id number] [facility] Erythrocytes [#/volume] in B lood by Automated countOrdered By: Edgar Valenzuela on 09-12-2023 RBC (Bld) [#/Vol] 5.16 10*6/uL High 3.60-5.00 [facility] Comment on above: Performed By: #### B MP, HS TROP, CK, CBC, BNP, PTT, PT ####[place] [address] [place] [address] [facility] Glucose Poct Glucometerson 0 09-12-2023 Glucose [Mass/Vol] 114 mg/dL Normal [facility] Comment on above: Result Comment: [facility] Glucose Reference Range is dependent on time and content of last meal. Glucose of more than 200 mg/dL in a nonstressed, ambulatory subject supports the diagnosis of Diabetes Mellitus.PERFORMED BY:[address] [address] [address] [place], [place] [phone] MEDICAL DIRECTORSADAF STANTON M.D. Performed By: #### G LULOIDA ####Point of Care testing, Glucose [Mass/volume] in Ser um or PlasmaOrdered By: Edgar Valenzuela on 09-12-2023 Glucose [Mass/Vol] 150 mg/dL High 70-100 [facility] Comment on above: ADA recommended refe rence rangeRandom Glucose Reference Range is dependent on time and content of last meal. Glucose of more than 200 mg/dL in a nonstressed, ambulatory subject supports the diagnosis of Diabetes Mellitus. Result Comment: [place] om Glucose Reference Range is dependent on time and content of last meal. Glucose of more than 200 mg/dL in a nonstressed, ambulatory subject supports the diagnosis of Diabetes Mellitus. ADA recommended reference range Performed By: #### B MP, HS TROP, CK, CBC, BNP, PTT, PT ####[place] [address] HbA1c HPLC (Bld) [Mass fract ion]on 09-12-2023 HbA1c (Bld) [Mass fraction] 6.6 % [facility] Hematocrit [Volume Fraction] of Blood by Automated countOrdered By: Edgar Valenzuela on 09-12-2023 Hematocrit (Bld) [Volume fraction] 49.3 % High 34.0-46.4 [facility] Comment on above: Performed By: #### B MP, HS TROP, CK, CBC, BNP, PTT, PT ####[address] Hemoglobin [Mass/volume] in BloodOrdered By: Edgar Valenzuela on 09-12-2023 Hemoglobin (Bld) [Mass/Vol] 16.9 g/dL High 11.8-15.4 [facility] Comment on above: Performed By: #### B MP, HS TROP, CK, CBC, BNP, PTT, PT ####[address] INR in Platelet poor plasma by Coagulation assayOrdered By: Edgar Valenzuela on 09-12-2023 INR Coag (PPP) [Relative time] 1.1 {INR} Normal [facility] Comment on above: INR Therapeutic Rang [...] HS TROP, CK, CBC, BNP, PTT, PT ####[address] Leukocytes [#/volume] correc deepika for nucleated erythrocytes in Blood by Automated counOrdered By: Edgar Valenzuela on 09-12-2023 WBC corrected for nucl RBC Auto (Bld) [#/Vol] 9.8 10*3/uL 3.8-11.6 [facility] Leukocytes [#/volume] in Blo od by Automated countOrdered By: Edgar Valenzuela on 09-12-2023 WBC (Bld) [#/Vol] 9.8 10*3/uL Normal 3.8-11.6 [facility] Comment on above: Performed By: #### B MP, HS TROP, CK, CBC, BNP, PTT, PT ####[address] Lymphocytes [#/volume] in Bl ood by Automated countOrdered By: Edgar Valenzuela on 09-12-2023 Lymphocytes (Bld) [#/Vol] 2.0 10*3/uL Normal 1.00-4.8 [facility] Comment on above: Performed By: #### B MP, HS TROP, CK, CBC, BNP, PTT, PT ####[address] Lymphocytes/100 leukocytes i n Blood by Automated countOrdered By: Edgar Valenzuela on 09-12-2023 Lymphocytes/100 WBC (Bld) 20.2 % Normal . [facility] Comment on above: Performed By: #### B MP, HS TROP, CK, CBC, BNP, PTT, PT ####[place] [address] MCH [Entitic mass] by Automa deepika countOrdered By: Edgar Valenzuela on 09-12-2023 MCH (RBC) [Entitic mass] 32.7 pg Normal 24.7-34.3 [facility] Comment on above: Performed By: #### B MP, HS TROP, CK, CBC, BNP, PTT, PT ####[address] MCHC Auto (RBC) [Mass/Vol]Or dered By: Edgar Valenzuela on 09-12-2023 MCHC (RBC) [Mass/Vol] 34.2 g/dL 32.0-35.0 [facility] MCV [Entitic volume] by Auto mated countOrdered By: Edgar Valenzuela on 09-12-2023 MCV (RBC) [Entitic vol] 95.6 fL Normal 80-100 [facility] Comment on above: Performed By: #### B MP, HS TROP, CK, CBC, BNP, PTT, PT ####[address] Monocyte distribution width [Entitic volume] in Blood by AutomatedOrdered By: Edgar Valenzuela on 09-12-2023 Monocyte distribution width Auto (Bld) [Entitic vol] 19.90 % 0.00-20.00 [facility] Neutrophils [#/volume] in Bl ood by Automated countOrdered By: Edgar aVlenzuela on 09-12-2023 Neutrophils (Bld) [#/Vol] 7.0 10*3/uL Normal 1.8-7.7 [facility] Comment on above: Performed By: #### B MP, HS TROP, CK, CBC, BNP, PTT, PT ####[address] No Panel InformationOrdered By: Edgar Valenzuela on 09-12-2023 Estimated GFR (CKD-EPI) > 60.0 mL/Min [facility] Creatinine Clearance (Chem 73.11 [facility] No Panel Informationon 09-11 Bedside Glucose 151 [facility] Nucleated erythrocytes [Pres ence] in Blood by Automated countOrdered By: Edgar Valenzuela on 09-12-2023 Nucleated RBC Auto Ql (Bld) 0.2 /100{WBC} 0-0.5 [facility] Partial Thromboplastin Timeo n 09-12-2023 aPTT Coag (Bld) [Time] 29.3 s Normal 25.1-36.5 [facility] Comment on above: Result Comment: A he matocrit value greater than 55% may lead to inaccurate results in coagulation testing. Patients having hematocrit values >55% require a special collection tube for coagulation studies. Please contact the laboratory at [phone] for redraw instructions.PERFORMED BY:[address] [place], [place] [phone] MEDICAL DIRECTORSADAF STANTON M.D. Performed By: #### B MP, HS TROP, CK, CBC, BNP, PTT, PT ####[place] [id number] [facility] Platelet mean volume [Entiti c volume] in Blood by Automated countOrdered By: Edgar Valenzuela on 09-12-2023 Platelet mean volume (Bld) [Entitic vol] 9.5 fL Normal 6.3-10.7 [facility] Comment on above: Performed By: #### B MP, HS TROP, CK, CBC, BNP, PTT, PT ####[address] [address] [facility] Platelets [#/volume] in Bloo d by Automated countOrdered By: Edgar Valenzuela on 09-12-2023 Platelets (Bld) [#/Vol] 195 10*3/uL Normal 150-450 [facility] Comment on above: Performed By: #### B MP, HS TROP, CK, CBC, BNP, PTT, PT ####[place] [id number] [facility] Potassium [Moles/volume] in Serum or PlasmaOrdered By: Edgar Valenzuela on 09-12-2023 Potassium [Moles/Vol] 4.0 mmol/L Normal 3.5-5.1 [facility] Comment on above: Performed By: #### B MP, HS TROP, CK, CBC, BNP, PTT, PT ####[place] [id number] [facility] Prothrombin time (PT)Ordered By: Edgar Valenzuela on 09-12-2023 PT Coag (PPP) [Time] 12.7 s Normal 9.0-12.9 [facility] Comment on above: A hematocrit value g reater than 55% may lead to inaccurate results in coagulation testing. Patients having hematocrit values >55% require a special collection tube for coagulation studies. Please contact the laboratory at [phone] for redraw instructions. Result Comment: A he matocrit value greater than 55% may lead to inaccurate results in coagulation testing. Patients having hematocrit values >55% require a special collection tube for coagulation studies. Please contact the laboratory at [phone] for redraw instructions. Performed By: #### B MP, HS TROP, CK, CBC, BNP, PTT, PT ####[place] [id number] [facility] Serum or plasma anion gap de terminationOrdered By: Edgar Valenzuela on 09-12-2023 Anion gap [Moles/Vol] 15.0 mmol/L Normal 6.0-15.0 [facility] Comment on above: Performed By: #### B MP, HS TROP, CK, CBC, BNP, PTT, PT ####[place] [id number] [facility] Sodium [Moles/volume] in Ser um or PlasmaOrdered By: Edgar Valenzuela on 09-12-2023 Sodium [Moles/Vol] 138 mmol/L Normal 136-145 [facility] Comment on above: Performed By: #### B MP, HS TROP, CK, CBC, BNP, PTT, PT ####[place] [id number] [facility] Troponin I High Sensitivityo n 09-12-2023 Troponin I High Sensitivity 7.3 pg/mL Normal 0.0-15.0 [facility] Comment on above: Result Comment: PERF ORMED BY:[address] [place], [place] [phone] MEDICAL DIRECTORSADAF STANTON M.D. Performed By: #### B MP, HS TROP, CK, CBC, BNP, PTT, PT ####[place] [address] [place] [id number] [facility] Troponin I.cardiac [Mass/vol ume] in Serum or Plasma by Detection limit <= 0.01 ng/Ordered By: Edgar Valenzuela on 09-12-2023 Troponin I.cardiac DL <= 0.01 ng/mL [Mass/Vol] 7.3 pg/mL 0.0-15.0 [facility] Urea nitrogen [Mass/volume] in Serum or PlasmaOrdered By: Edgar Valenzuela on 09-12-2023 Urea nitrogen [Mass/Vol] 11 mg/dL Normal 7-25 [facility] Comment on above: Performed By: #### B MP, HS TROP, CK, CBC, BNP, PTT, PT ####[place] [address] [place] [id number] [facility] XR chest 2V*on 09-12-2023 XR chest 2V* Normal [facility] Alanine aminotransferase [En zymatic activity/volume] in Serum or PlasmaOrdered By: Angelique Russell on 09-05-2023 ALT [Catalytic activity/Vol] 19 U/L Normal 7-52 [facility] Comment on above: Performed By: #### U RMACRERAT, B12, LIPID, CMP ####[place] [id number] [place] [id number] [facility] Albumin [Mass/volume] in Ser um or Plasma by Bromocresol green (BCG) dye binding methoOrdered By: Angelique Russell on 09-05-2023 Albumin BCG dye [Mass/Vol] 4.3 g/dL 3.5-5.7 [facility] Alkaline phosphatase [Enzyma tic activity/volume] in Serum or PlasmaOrdered By: Angelique Russell on 09-05-2023 ALP [Catalytic activity/Vol] 81 U/L Normal 34-104 [facility] Comment on above: Performed By: #### U RMACRERAT, B12, LIPID, CMP ####[facility] [address] Aspartate aminotransferase [ Enzymatic activity/volume] in Serum or PlasmaOrdered By: Tondra Mapus on 09-05-2023 AST [Catalytic activity/Vol] 26 U/L Normal 13-39 [facility] Comment on above: Performed By: #### U RMACRERAT, B12, LIPID, CMP ####[address] Bilirubin.total [Mass/volume ] in Serum or PlasmaOrdered By: Tondra Mapus on 09-05-2023 Bilirubin [Mass/Vol] 0.7 mg/dL Normal 0.3-1.0 [facility] Comment on above: Performed By: #### U RMACRERAT, B12, LIPID, CMP ####[address] Calcium [Mass/volume] in Ser um or PlasmaOrdered By: Tondra Mapus on 09-05-2023 Calcium [Mass/Vol] 10.2 mg/dL Normal 8.6-10.3 [facility] Comment on above: Performed By: #### U RMACRERAT, B12, LIPID, CMP ####[address] Carbon dioxide, total [Moles /volume] in Serum or PlasmaOrdered By: Tondra Mapus on 09-05-2023 CO2 [Moles/Vol] 28.6 mmol/L Normal 21.0-31.0 [facility] Comment on above: Performed By: #### U RMACRERAT, B12, LIPID, CMP ####[place] [address] [place] Chloride [Moles/volume] in S elliot or PlasmaOrdered By: Tondra Mapus on 09-05-2023 Chloride [Moles/Vol] 102 mmol/L Normal 98-107 [facility] Comment on above: Performed By: #### U RMACRERAT, B12, LIPID, CMP ####[address] Cholesterol [Mass/volume] in Serum or PlasmaOrdered By: Tondra Mapus on 09-05-2023 Cholesterol [Mass/Vol] 143 mg/dL Normal 140-200 [facility] Comment on above: Chol less than 200 m g/dl low riskChol 201-239 mg/dl borderline riskChol 240 mg/dl and greater high risk Result Comment: Chol less than 200 mg/dl low risk Chol 201-239 mg/dl borderline risk Chol 240 mg/dl and greater high risk Performed By: #### U RMACRERAT, B12, LIPID, CMP ####[facility] [id number] Cholesterol in LDL Calc [Mas s/Vol]Ordered By: Angelique Russell on 09-05-2023 Cholesterol in LDL [Mass/Vol] 62 mg/dL 0-100 [facility] Comment on above: LDL ATP III CLASSIFI CATIONLDL less than 100 mg/dL OptimalLDL 100-129 mg/dL Near or above optimalLDL 130-159 mg/dL Borderline highLDL 160-189 mg/dL HighLDL greater than 189 mg/dL Very high Cholesterol in VLDL Calc [Ma ss/Vol]Ordered By: Angelique Russell on 09-05-2023 Cholesterol in VLDL [Mass/Vol] 51 mg/dL [facility] Comprehensive Metabolic Pane juan 09-05-2023 Albumin [Mass/Vol] 4.3 g/dL Normal 3.5-5.7 [facility] Comment on above: Performed By: #### U RMACRERAT, B12, LIPID, CMP ####[address] GFR/1.73 sq M.predicted MDRD (S/P/Bld) [Vol rate/Area] mL/min/{1.73_m2} Normal [facility] Comment on above: Performed By: #### U RMACRERAT, B12, LIPID, CMP ####[place] [address] Creatinine [Mass/volume] in Serum or PlasmaOrdered By: Angelique Russell on 09-05-2023 Creatinine [Mass/Vol] 0.91 mg/dL Normal 0.60-1.20 [facility] Comment on above: Performed By: #### U RMACRERAT, B12, LIPID, CMP ####[facility] [id number] Creatinine [Mass/volume] in UrineOrdered By: Angelique Russell on 09-05-2023 Creatinine (U) [Mass/Vol] 118.0 mg/dL [facility] Comment on above: No reference range e stablished Glucose [Mass/volume] in Ser um or PlasmaOrdered By: Angelique Russell on 09-05-2023 Glucose [Mass/Vol] 197 mg/dL High 70-100 [facility] Comment on above: ADA recommended refe rence rangeRandom Glucose Reference Range is dependent on time and content of last meal. Glucose of more than 200 mg/dL in a nonstressed, ambulatory subject supports the diagnosis of Diabetes Mellitus. Result Comment: [place] om Glucose Reference Range is dependent on time and content of last meal. Glucose of more than 200 mg/dL in a nonstressed, ambulatory subject supports the diagnosis of Diabetes Mellitus. ADA recommended reference range Performed By: #### U RMACRERAT, B12, LIPID, CMP ####[place] [address] [place] [id number] [facility] Lipid Panelon 09-05-2023 LDL Cholesterol,Calculated 62 mg/dL Normal 0-100 [facility] Comment on above: Result Comment: LDL ATP III CLASSIFICATION LDL less than 100 mg/dL Optimal LDL 100-129 mg/dL Near or above optimal LDL 130-159 mg/dL Borderline high LDL 160-189 mg/dL High LDL greater than 189 mg/dL Very high Performed By: #### U RMACRERAT, B12, LIPID, CMP ####[facility] [id number] [place] [id number] [facility] Triglyceride w/Reflex 256 mg/dL High 0-149 [facility] Comment on above: Result Comment: TRIG ATP III CLASSIFICATION TRIG less than 150 mg/dL Normal TRIG 150-199 mg/dL Borderline high TRIG 200-500 mg/dL High TRIG greater than 500 mg/dL Very high Standard traceable to the Center for Disease Conrtrol and Prevention (CDC) test method. Performed By: #### U RMACRERAT, B12, LIPID, CMP ####[place] [address] [place] [id number] [facility] VLDL CHOLESTEROL 51 mg/dL Normal [facility] Comment on above: Performed By: #### U RMACRERAT, B12, LIPID, CMP ####[address] MicroAlb Creat Ratio,Uon Creatinine, Urine (Random) 118.0 mg/dL Normal [facility] Comment on above: Result Comment: No r eference range established Performed By: #### U RMACRERAT, B12, LIPID, CMP ####[place] [address] Microalbumin/Creatinine Ratio 155.0 mg/g High 0.0-30.0 [facility] Comment on above: Result Comment: 30-3 00 mg/g indicates an increased risk for diabetic nephropathy. Greater than 300 mg/g is consistent with clinical nephropathy. (Am. J. Kidney Disease 1995, 25:107)PERFORMED BY:[address] [place], [place] [id number] MEDICAL DIRECTORSADAF STANTON M.D. Performed By: #### U RMACRERAT, B12, LIPID, CMP ####[address] Microalbumin [Mass/volume] i n UrineOrdered By: Angelique Russell on 09-05-2023 Albumin DL <= 20 mg/L (U) [Mass/Vol] 18.4 mg/dL High 0.0-1.8 [facility] Comment on above: Performed By: #### U RMACRERAT, B12, LIPID, CMP ####[address] No Panel InformationOrdered By: Angelique Russell on 09-05-2023 Estimated GFR (CKD-EPI) > 60.0 mL/Min [facility] Creatinine Clearance (Chem N/A [facility] Potassium [Moles/volume] in Serum or PlasmaOrdered By: Angelique Russell on 09-05-2023 Potassium [Moles/Vol] 4.2 mmol/L Normal 3.5-5.1 [facility] Comment on above: Performed By: #### U RMACRERAT, B12, LIPID, CMP ####[address] Protein [Mass/volume] in Ser um or PlasmaOrdered By: Barbera Yvonne on 09-05-2023 Protein [Mass/Vol] 7.0 g/dL Normal 6.4-8.9 [facility] Comment on above: Performed By: #### U RMACRERAT, B12, LIPID, CMP ####[address] Serum globulin measurement b y calculation (mass/volume)Ordered By: Angelique Russell on 09-05-2023 Globulin (S) [Mass/Vol] 2.7 g/dL Normal [facility] Comment on above: Performed By: #### U RMACRERAT, B12, LIPID, CMP ####[address] Serum or plasma albumin/glob ulin mass ratioOrdered By: Angelique Russell on 09-05-2023 Albumin/Globulin [Mass ratio] 1.6 {ratio} Normal [facility] Comment on above: Performed By: #### U RMACRERAT, B12, LIPID, CMP ####[address] Serum or plasma anion gap de terminationOrdered By: Angelique Russell on 09-05-2023 Anion gap [Moles/Vol] 13.6 mmol/L Normal 6.0-15.0 [facility] Comment on above: Performed By: #### U RMACRERAT, B12, LIPID, CMP ####[address] Serum or plasma high density lipoprotein (HDL) cholesterol measurementOrdered By: Angelique Russell on 09-05-2023 Cholesterol in HDL [Mass/Vol] 30 mg/dL Normal 23-92 [facility] Comment on above: HDL CHOL ATP-III CLA SSIFICATION Cardiovascular RiskHDL > or equal to 60 mg/dL LOWHDL < 40 mg/dL HIGH Result Comment: HDL CHOL ATP-III CLASSIFICATION Cardiovascular Risk HDL > or equal to 60 mg/dL LOW HDL < 40 mg/dL HIGH Performed By: #### U RMACRERAT, B12, LIPID, CMP ####[address] Serum or plasma total choles terol/high density lipoprotein (HDL) cholesterol mass ratOrdered By: Angelique Russell on 09-05-2023 Cholesterol.total/Monica sterol in HDL [Mass ratio] 4.8 {ratio} Normal <5.0 [facility] Comment on above: Performed By: #### U RMACRERAT, B12, LIPID, CMP ####[address] Sodium [Moles/volume] in Ser um or PlasmaOrdered By: Angelique Russell on 09-05-2023 Sodium [Moles/Vol] 140 mmol/L Normal 136-145 [facility] Comment on above: Performed By: #### U RMACRERAT, B12, LIPID, CMP ####[address] Triglyceride [Mass/volume] i n Serum or PlasmaOrdered By: Angelique Russell on 09-05-2023 Triglyceride [Mass/Vol] 256 mg/dL High 0-149 [facility] Comment on above: TRIG ATP III CLASSIF ICATIONTRIG less than 150 mg/dL NormalTRIG 150-199 mg/dL Borderline highTRIG 200-500 mg/dL High TRIG greater than 500 mg/dL Very highStandard traceable to the Center for Disease Conrtrol and Prevention (CDC) test method. Urea nitrogen [Mass/volume] in Serum or PlasmaOrdered By: Angelique Russell on 09-05-2023 Urea nitrogen [Mass/Vol] 12 mg/dL Normal 7-25 [facility] Comment on above: Performed By: #### U RMACRERAT, B12, LIPID, CMP ####[facility] [id number] [place] [address] [facility] Urine microalbumin/creatinin e mass ratioOrdered By: Angelique Russell on 09-05-2023 Albumin/Creatinine DL <= 20 mg/L (U) [Mass ratio] 155.0 mg/g High 0.0-30.0 [facility] Comment on above: 30-300 mg/g indicate s an increased risk for diabetic nephropathy. Greater than 300 mg/g is consistent with clinical nephropathy. (Am. J. Kidney Disease 1995, 25:107) Vitamin B12 ser/plasOrdered By: Angelique Russell on 09-05-2023 Cobalamin (Vitamin B12) [Mass/Vol] 255 pg/mL Normal 180-914 [facility] Comment on above: Result Comment: PERF ORMED BY:[address] [place], [place] [phone] MEDICAL DIRECTORSADAF STANTON M.D. Performed By: #### U RMACRERAT, B12, LIPID, CMP ####[facility] [id number] [place] [address] [facility] [address] lung screeningon 07-25-[address] lung screening Normal [facility] Laboratory - Hematology and Cell countson 06-12-2023 HbA1c (Bld) [Mass fraction] 7.2 % [facility] No Panel Informationon 06-12 Bedside Glucose 197 [facility] A1C HEMOGLOBINon 01-07-2023 HbA1c (Bld) [Mass fraction] 6.3 % [employer] Other Glucose - FINGER STICKon Glucose [Mass/Vol] 196 mg/dL [employer] Other HbA1c (Bld) [Mass fraction]o n 01-07-2023 A1C HEMOGLOBIN [employer] Other A1C HEMOGLOBINon 09-27-2022 HbA1c (Bld) [Mass fraction] 6.6 % [employer] Other Glucose - FINGER STICKon Glucose [Mass/Vol] 128 mg/dL [employer] Other HbA1c (Bld) [Mass fraction]o n 09-27-2022 A1C HEMOGLOBIN [employer] Other A1C HEMOGLOBINon 06-18-2022 HbA1c (Bld) [Mass fraction] 7.1 % [employer] Other Glucose - FINGER STICKon Glucose [Mass/Vol] 219 mg/dL [employer] Other HbA1c (Bld) [Mass fraction]o n 06-18-2022 A1C HEMOGLOBIN [employer] Other A1C HEMOGLOBINon 01-09-2022 HbA1c (Bld) [Mass fraction] 7.7 % [employer] Other Glucose - FINGER STICKon Glucose [Mass/Vol] 242 mg/dL [employer] Other HbA1c (Bld) [Mass fraction]o n 01-09-2022 A1C HEMOGLOBIN [employer] Other Consultation Noteon 12-26-19 Consultation Note [id number]: 127 [facility] Insurance Correspondence Off ice12-20-2021 Insurance Correspondence Office [id number]: 127 Normal [facility] Urine culture routineOrdered By: Milo Watters on 12-19-2021 Bacteria identified Cx Nom (U) Zeny albicans [facility] Albumin [Mass/volume] in Ser um or PlasmaOrdered By: Milo Watters on 12-17-2021 Albumin [Mass/Vol] 3.4 g/dL 3.2-5.5 [facility] Automated erythrocytes count in urine sediment (number/area)Ordered By: Milo Watters on 12-17-2021 RBC Auto (Urine sed) [#/Area] 3-4 [HPF] 0-4 [facility] Automated leukocytes count i n urine sediment (number/area)Ordered By: Milo Watters on 12-17-2021 WBC Auto (Urine sed) [#/Area] 50-100 [HPF] 0-4 [facility] Automated urine hyaline cast s count (number/volume)Ordered By: Milo Watters on 12-17-2021 Hyaline casts Auto (U) [#/Vol] None seen [LPF] 0-1 [facility] Basophils Auto (Bld) [#/Vol] Ordered By: Milo Watters on 12-17-2021 Basophils (Bld) [#/Vol] 0.1 10*3/uL 0.0-0.2 [facility] Basophils/100 WBC Auto (Bld) Ordered By: Milo Watters on 12-17-2021 Basophils/100 WBC (Bld) 0.5 % . F [facility] Bilirubin Test strip Ql (U)O rdered By: Milo Watters on 12-17-2021 Bilirubin Ql (U) Negative Negative [facility] Blood hemoglobin measurement (mass/volume)Ordered By: Milo Watters on 12-17-2021 Hemoglobin (Bld) [Mass/Vol] 16.1 g/dL 11.8-15.4 [facility] Blood leukocytes automated c ount (number/volume)Ordered By: Milo Watters on 12-17-2021 WBC (Bld) [#/Vol] 10.7 10*3/uL 4.5-11.0 [facility] Casts typing in urine sedime nt by light microscopyOrdered By: Milo Watters on 12-17-2021 Casts LM Nom (Urine sed) None seen [LPF] None Seen [facility] Color Auto (U)Ordered By: Jonh Watters on 12-17-2021 Color (U) Yellow Yellow [facility] Creatinine and Glomerular fi ltration rate.predicted panel (S/P/Bld)Ordered By: Mlio Watters on 12-17-2021 Creatinine [Mass/Vol] 0.89 mg/dL 0.44-1.03 [facility] Eosinophils Auto (Bld) [#/Vo l]Ordered By: Milo Watters on 12-17-2021 Eosinophils (Bld) [#/Vol] 0.1 10*3/uL 0.0-0.45 [facility] Eosinophils/100 WBC Auto (Bl d)Ordered By: Milo Watters on 12-17-2021 Eosinophils/100 WBC (Bld) 1.0 % . [facility] Erythrocyte distribution wid th Auto (RBC) [Ratio]Ordered By: Milo Watters on 12-17-2021 Erythrocyte distribution width (RBC) [Ratio] 13.1 % 11.9-15.3 [facility] Estimated glomerular filtrat ion rate (GFR) non- AmericanOrdered By: Milo Watters on 12-17-2021 GFR/1.73 sq M.predicted among non-blacks MDRD (S/P/Bld) [Vol rate/Area] > 60 mL/Min [facility] Globulin Calc (S) [Mass/Vol] Ordered By: Milo Watters on 12-17-2021 Globulin (S) [Mass/Vol] 3.9 g/dL F [facility] Hematocrit Auto (Bld) [Volum e fraction]Ordered By: Milo Watters on 12-17-2021 Hematocrit (Bld) [Volume fraction] 48.5 % 34.0-46.4 [facility] Ketones Auto test strip (U) [Mass/Vol]Ordered By: Milo Watters on 12-17-2021 Ketones (U) [Mass/Vol] Negative Negative Fi [facility] Laboratory - Hematology and Cell countsOrdered By: Milo Watters on 12-17-2021 Nucleated RBC/100 WBC (Bld) [Ratio] 0.1 % 0-0.5 [facility] Lymphocytes Auto (Bld) [#/Vo l]Ordered By: Milo Watters on 12-17-2021 Lymphocytes (Bld) [#/Vol] 1.5 10*3/uL 1.00-4.8 [facility] Lymphocytes/100 WBC Auto (Bl d)Ordered By: Milo Watters on 12-17-2021 Lymphocytes/100 WBC (Bld) 14.2 % . [facility] MCH Auto (RBC) [Entitic mass ]Ordered By: Milo Watters on 12-17-2021 MCH (RBC) [Entitic mass] 31.4 pg 24.7-34.3 [facility] MCHC Auto (RBC) [Mass/Vol]Or dered By: Milo Watters on 12-17-2021 MCHC (RBC) [Mass/Vol] 33.2 g/dL 32.0-35.0 [facility] MCV Auto (RBC) [Entitic vol] Ordered By: Milo Watters on 12-17-2021 MCV (RBC) [Entitic vol] 94.6 fL 80-100 [facility] Monocytes Auto (Bld) [#/Vol] Ordered By: Milo Watters on 12-17-2021 Monocytes (Bld) [#/Vol] 0.8 10*3/uL 0.0-0.8 [facility] Monocytes/100 WBC Auto (Bld) Ordered By: Milo Watters on 12-17-2021 Monocytes/100 WBC (Bld) 7.5 % . F [facility] Neutrophils Auto (Bld) [#/Vo l]Ordered By: Milo Watters on 12-17-2021 Neutrophils (Bld) [#/Vol] 8.2 10*3/uL 1.8-7.7 [facility] Neutrophils/100 WBC Auto (Bl d)Ordered By: Milo Watters on 12-17-2021 Neutrophils/100 WBC (Bld) 76.8 % . [facility] Nitrite Test strip Ql (U)Ord ered By: Milo Watters on 12-17-2021 Nitrite Ql (U) Negative Negative [facility] No Panel InformationOrdered By: Milo Watters on 12-17-2021 Estimated GFR () > 60 mL/Min [facility] Comment on above: GFR estimated refere nce range: According to KDOQI guidelines, <60 ml/min/1.73m2 is sufficient to diagnose a patient with chronic kidney disease. Pharmacy Creatinine Clearance (Chem 70.55 [facility] Platelet mean volume Auto (B ld) [Entitic vol]Ordered By: Milo Watters on 12-17-2021 Platelet mean volume (Bld) [Entitic vol] 8.7 fL 6.3-10.7 [facility] Platelets Auto (Bld) [#/Vol] Ordered By: Milo Watters on 12-17-2021 Platelets (Bld) [#/Vol] 239 10*3/uL 150-450 [facility] Protein Auto test strip (U) [Mass/Vol]Ordered By: Milo Watters on 12-17-2021 Protein (U) [Mass/Vol] Trace mg/dL Negative F [facility] Protein [Mass/volume] in Ser um or PlasmaOrdered By: Milo Watters on 12-17-2021 Protein [Mass/Vol] 7.3 g/dL 6.1-7.9 [facility] RBC Auto (Bld) [#/Vol]Ordere d By: Milo Watters on 12-17-2021 RBC (Bld) [#/Vol] 5.13 10*6/uL 3.60-5.00 [facility] Serum or plasma alanine tucker otransferase measurement without P-5'-P (enzymatic activiOrdered By: Milo Watters on 12-17-2021 ALT No additional P-5'-P [Catalytic activity/Vol] 38 U/L 10-60 [facility] Serum or plasma albumin/glob ulin mass ratioOrdered By: Milo Watters on 12-17-2021 Albumin/Globulin [Mass ratio] 0.9 {ratio} [facility] Serum or plasma alkaline yue sphatase measurement (enzymatic activity/volume)Ordered By: Milo Watters on 12-17-2021 ALP [Catalytic activity/Vol] 109 U/L 32-92 [facility] Serum or plasma aspartate am inotransferase measurement (enzymatic activity/volume)Ordered By: Milo Watters on 12-17-2021 AST [Catalytic activity/Vol] 43 U/L 10-42 [facility] Serum or plasma calcium steve urement (mass/volume)Ordered By: Milo Watters on 12-17-2021 Calcium [Mass/Vol] 10.0 mg/dL 8.2-10.2 [facility] Serum or plasma chloride coleman surement (moles/volume)Ordered By: Milo Watters on 12-17-2021 Chloride [Moles/Vol] 102 mmol/L 95-114 [facility] Serum or plasma glucose steve urement (mass/volume)Ordered By: Milo Watters on 12-17-2021 Glucose [Mass/Vol] 231 mg/dL 70-100 [facility] Comment on above: ADA recommended refe rence range Random Glucose Reference Range is dependent on time and content of last meal. Glucose of more than 200 mg/dL in a nonstressed, ambulatory subject supports the diagnosis of Diabetes Mellitus. Serum or plasma potassium me asurement (moles/volume)Ordered By: OSORIO WHITE on 12-17-2021 Potassium [Moles/Vol] 3.6 mmol/L 3.5-5.1 [facility] Serum or plasma sodium measu rement (moles/volume)Ordered By: Milo Watters on 12-17-2021 Sodium [Moles/Vol] 137 mmol/L 136-146 [facility] Serum or plasma total biliru bin measurement (mass/volume)Ordered By: Milo Watters on 12-17-2021 Bilirubin [Mass/Vol] 0.8 mg/dL 0.3-1.2 [facility] Serum or plasma total carbon dioxide measurement (moles/volume)Ordered By: Milo Watters on 12-17-2021 CO2 [Moles/Vol] 24.6 mmol/L 22.0-30.0 [facility] Serum or plasma urea nitroge n measurement (mass/volume)Ordered By: Milo Watters on 12-17-2021 Urea nitrogen [Mass/Vol] 8 mg/dL 9-23 [facility] Specific gravity Auto test s trip (U) [Rel density]Ordered By: Milo Watters on 12-17-2021 Specific gravity (U) [Rel density] 1.030 1.001-1.03 0 [facility] Squamous epithelial cells de tection in urine sediment by light microscopyOrdered By: Milo Watters on 12-17-2021 Epithelial cells.squamous LM Ql (Urine sed) None seen [HPF] 0-2 [facility] Urine bacteria detection by automated methodOrdered By: Milo Watters on 12-17-2021 Bacteria Auto Ql (U) Rare None Seen [facility] Urine clarity by refractomet ry automatedOrdered By: Milo Watters on 12-17-2021 Clarity Refractometry automated (U) Clear Clear [facility] Urine glucose measurement by automated test strip (mass/volume)Ordered By: Milo Watters on 12-17-2021 Glucose Auto test strip (U) [Mass/Vol] >=1000 mg/dL Normal [facility] Urine hemoglobin detection b y automated test stripOrdered By: Milo Watters on 12-17-2021 Hemoglobin Auto test strip Ql (U) 1+ Negative [facility] Urine leukocyte esterase det ection by automated test stripOrdered By: Milo Watters on 12-17-2021 Leukocyte esterase Auto test strip Ql (U) 3+ Negative [facility] Urobilinogen Auto test strip (U) [Mass/Vol]Ordered By: Milo Watters on 12-17-2021 Urobilinogen (U) [Mass/Vol] Normal mg/dL Normal [facility] Yeast detection in urine sed iment by light microscopyOrdered By: Milo Watters on 12-17-2021 Yeast LM Ql (Urine sed) 3+ [HPF] None Seen F [facility] pH Auto test strip (U)Ordere d By: Milo Watters on 12-17-2021 pH (U) 6.0 [pH] 5.0-9.0 [facility] Bacterial blood cultureOrder ed By: Arleen Stephen on 12-14-2021 Bacteria identified Cx Nom (Bld) NO GROWTH 5 DAYS [facility] Basophils Auto (Bld) [#/Vol] Ordered By: Walter Montgomery on 12-13-2021 Basophils (Bld) [#/Vol] 0.0 10*3/uL 0.0-0.2 [facility] Basophils/100 WBC Auto (Bld) Ordered By: Walter Montgomery on 12-13-2021 Basophils/100 WBC (Bld) 0.1 % . F [facility] Blood hemoglobin measurement (mass/volume)Ordered By: Walter Montgomery on 12-13-2021 Hemoglobin (Bld) [Mass/Vol] 14.2 g/dL 11.8-15.4 [facility] Blood leukocytes automated c ount (number/volume)Ordered By: Walter Montgomery on 12-13-2021 WBC (Bld) [#/Vol] 9.4 10*3/uL 4.5-11.0 [facility] Consultation Noteon 12-14-19 Consultation Note [id number]: 127 Normal [facility] Creatinine and Glomerular fi ltration rate.predicted panel (S/P/Bld)Ordered By: Walter Montgomery on 12-13-2021 Creatinine [Mass/Vol] 0.75 mg/dL 0.44-1.03 [facility] Direct bilirubin measurement Ordered By: Walter Montgomery on 12-13-2021 Bilirubin.direct [Mass/Vol] 0.2 mg/dL 0.0-0.4 [facility] Eosinophils Auto (Bld) [#/Vo l]Ordered By: Walter Montgomery on 12-13-2021 Eosinophils (Bld) [#/Vol] 0.0 10*3/uL 0.0-0.45 [facility] Eosinophils/100 WBC Auto (Bl d)Ordered By: Walter Montgomery on 12-13-2021 Eosinophils/100 WBC (Bld) 0.0 % . [facility] Erythrocyte distribution wid th Auto (RBC) [Ratio]Ordered By: Walter Montgomery on 12-13-2021 Erythrocyte distribution width (RBC) [Ratio] 12.9 % 11.9-15.3 [facility] Estimated glomerular filtrat ion rate (GFR) non- AmericanOrdered By: Walter Montgomery on 12-13-2021 GFR/1.73 sq M.predicted among non-blacks MDRD (S/P/Bld) [Vol rate/Area] > 60 mL/Min [facility] Glucose Glucometer (BldC) [M ass/Vol]Ordered By: Wilmer Vance on 12-13-2021 Glucose [Mass/Vol] 230 mg/dL [facility] Comment on above: Random Glucose Refer ence Range is dependent on time and content of last meal. Glucose of more than 200 mg/dL in a nonstressed, ambulatory subject supports the diagnosis of Diabetes Mellitus. Hematocrit Auto (Bld) [Volum e fraction]Ordered By: Walter Montgomery on 12-13-2021 Hematocrit (Bld) [Volume fraction] 41.9 % 34.0-46.4 [facility] Laboratory - Hematology and Cell countsOrdered By: Walter Montgomery on 12-13-2021 Nucleated RBC/100 WBC (Bld) [Ratio] 0.0 % 0-0.5 [facility] Lymphocytes Auto (Bld) [#/Vo l]Ordered By: Walter Montgomery on 12-13-2021 Lymphocytes (Bld) [#/Vol] 0.7 10*3/uL 1.00-4.8 [facility] Lymphocytes/100 WBC Auto (Bl d)Ordered By: Walter Montgomery on 12-13-2021 Lymphocytes/100 WBC (Bld) 7.7 % . [facility] MCH Auto (RBC) [Entitic mass ]Ordered By: Walter Montgomery on 12-13-2021 MCH (RBC) [Entitic mass] 32.2 pg 24.7-34.3 [facility] MCHC Auto (RBC) [Mass/Vol]Or dered By: Walter Montgomery on 12-13-2021 MCHC (RBC) [Mass/Vol] 33.9 g/dL 32.0-35.0 Fir [facility] MCV Auto (RBC) [Entitic vol] Ordered By: Walter Montgomery on 12-13-2021 MCV (RBC) [Entitic vol] 95.1 fL 80-100 F [facility] Monocytes Auto (Bld) [#/Vol] Ordered By: Walter Montgomery on 12-13-2021 Monocytes (Bld) [#/Vol] 0.2 10*3/uL 0.0-0.8 [facility] Monocytes/100 WBC Auto (Bld) Ordered By: Walter Montgomery on 12-13-2021 Monocytes/100 WBC (Bld) 1.8 % . F [facility] Neutrophils Auto (Bld) [#/Vo l]Ordered By: Walter Montgomery on 12-13-2021 Neutrophils (Bld) [#/Vol] 8.5 10*3/uL 1.8-7.7 [facility] Neutrophils/100 WBC Auto (Bl d)Ordered By: Walter Montgomery on 12-13-2021 Neutrophils/100 WBC (Bld) 90.4 % . [facility] No Panel InformationOrdered By: Walter Montgomery on 12-13-2021 Estimated GFR () > 60 mL/Min [facility] Comment on above: GFR estimated refere nce range: According to KDOQI guidelines, <60 ml/min/1.73m2 is sufficient to diagnose a patient with chronic kidney disease. Pharmacy Creatinine Clearance (Chem 84.79 [facility] Platelet mean volume Auto (B ld) [Entitic vol]Ordered By: Walter Montgomery on 12-13-2021 Platelet mean volume (Bld) [Entitic vol] 9.3 fL 6.3-10.7 [facility] Platelets Auto (Bld) [#/Vol] Ordered By: Walter Montgomery on 12-13-2021 Platelets (Bld) [#/Vol] 178 10*3/uL 150-450 [facility] RBC Auto (Bld) [#/Vol]Ordere d By: Walter Montgomery on 12-13-2021 RBC (Bld) [#/Vol] 4.41 10*6/uL 3.60-5.00 [facility] Serum or plasma chloride coleman surement (moles/volume)Ordered By: Walter Montgomery on 12-13-2021 Chloride [Moles/Vol] 105 mmol/L 95-114 [facility] Serum or plasma non-glucuron idated bilirubin measurement (mass/volume)Ordered By: Walter Montgomery on 12-13-2021 Bilirubin.indirect [Mass/Vol] 0.5 mg/dL [facility] Serum or plasma potassium me asurement (moles/volume)Ordered By: Walter Montgomery on 12-13-2021 Potassium [Moles/Vol] 4.4 mmol/L 3.5-5.1 [facility] Serum or plasma sodium measu rement (moles/volume)Ordered By: Walter Montgomery on 12-13-2021 Sodium [Moles/Vol] 137 mmol/L 136-146 [facility] Serum or plasma total biliru bin measurement (mass/volume)Ordered By: Walter Montgomery on 12-13-2021 Bilirubin [Mass/Vol] 0.7 mg/dL 0.3-1.2 [facility] Serum or plasma total carbon dioxide measurement (moles/volume)Ordered By: Walter Montgomery on 12-13-2021 CO2 [Moles/Vol] 24.6 mmol/L 22.0-30.0 [facility] Serum or plasma urea nitroge n measurement (mass/volume)Ordered By: Walter Montgomery on 12-13-2021 Urea nitrogen [Mass/Vol] 12 mg/dL 9-23 [facility] Activated partial thrombopla stin time (aPTT) in platelet poor plasma by coagulation aOrdered By: Walter Montgomery on 12-12-2021 aPTT Coag (PPP) [Time] 30.0 s 25.1-36.5 [facility] Laboratory - CoagulationOrde red By: Walter Montgomery on 12-12-2021 PT Coag (PPP) [Time] 14.1 s 9.0-12.9 [facility] Platelet poor plasma interna tional normalized ratio (INR) by coagulation assay (relatOrdered By: Walter Montgomery on 12-12-2021 INR Coag (PPP) [Relative time] 1.3 {INR} [facility] Comment on above: INR Therapeutic Rang [...] 12-12-2021 ALP [Catalytic activity/Vol] 92 U/L 32-92 [facility] Serum or plasma aspartate am inotransferase measurement (enzymatic activity/volume)Ordered By: Walter Montgomery on 12-12-2021 AST [Catalytic activity/Vol] 22 U/L 10-42 [facility] Albumin [Mass/volume] in Ser um or PlasmaOrdered By: Arleen Stephen on 12-11-2021 Albumin [Mass/Vol] 2.9 g/dL 3.2-5.5 [facility] Globulin Calc (S) [Mass/Vol] Ordered By: Arleen Stephen on 12-11-2021 Globulin (S) [Mass/Vol] 3.0 g/dL [facility] No Panel InformationOrdered By: Arleen Stephen on 12-11-2021 Bedside Glucose Comment Glu2: cleaned meter [facility] Protein [Mass/volume] in Ser um or PlasmaOrdered By: Arleen Stephen on 12-11-2021 Protein [Mass/Vol] 5.9 g/dL 6.1-7.9 [facility] Serum or plasma alanine tucker otransferase measurement without P-5'-P (enzymatic activiOrdered By: Arleen Stephen on 12-11-2021 ALT No additional P-5'-P [Catalytic activity/Vol] 16 U/L 10-60 [facility] Serum or plasma albumin/glob ulin mass ratioOrdered By: Arleen Stephen on 12-11-2021 Albumin/Globulin [Mass ratio] 1.0 {ratio} [facility] Serum or plasma calcium steve urement (mass/volume)Ordered By: Arleen Stephen on 12-11-2021 Calcium [Mass/Vol] 9.2 mg/dL 8.2-10.2 [facility] Serum or plasma glucose steve urement (mass/volume)Ordered By: Arleen Stephen on 12-11-2021 Glucose [Mass/Vol] 204 mg/dL 70-100 [facility] Comment on above: ADA recommended refe rence range Random Glucose Reference Range is dependent on time and content of last meal. Glucose of more than 200 mg/dL in a nonstressed, ambulatory subject supports the diagnosis of Diabetes Mellitus. Urine culture routineOrdered By: Tray Randle on 12-11-2021 Bacteria identified Cx Nom (U) Escherichia coli [facility] Automated erythrocytes count in urine sediment (number/area)Ordered By: Tray Randle on 12-09-2021 RBC Auto (Urine sed) [#/Area] 5-9 [HPF] 0-4 [facility] Automated leukocytes count i n urine sediment (number/area)Ordered By: Tray Randle on 12-09-2021 WBC Auto (Urine sed) [#/Area] 50-100 [HPF] 0-4 [facility] Automated urine hyaline cast s count (number/volume)Ordered By: Tray Randle on 12-09-2021 Hyaline casts Auto (U) [#/Vol] None seen [LPF] 0-1 [facility] Bilirubin Test strip Ql (U)O rdered By: Tray Randle on 12-09-2021 Bilirubin Ql (U) Negative Negative [facility] COVID-19 Positive/NegativeOr dered By: Tray Randle on 12-09-2021 SARS-CoV-2 (COVID-19) N gene TEJINDER+probe Ql (Resp) Negative Negative [facility] Comment on above: Testing for SARS-CoV -2 by RT-PCR This test was developed and its performance characteristics determined by [employer] (BD) and validated at the [facility]. This test has not been FDA [...] (COVID-19) Ag IA.rapid Ql (Resp) Negative Negative [facility] Comment on above: This is a duplicate Molly SARS Antigen (ANUP) result to be used for statistical tracking purpose only. Casts typing in urine sedime nt by light microscopyOrdered By: Tray Randle on 12-09-2021 Casts LM Nom (Urine sed) None seen [LPF] None Seen [facility] Color Auto (U)Ordered By: Carolina Randle on 12-09-2021 Color (U) Yellow Yellow [facility] Ketones Auto test strip (U) [Mass/Vol]Ordered By: Tray Randle on 12-09-2021 Ketones (U) [Mass/Vol] Negative Negative [facility] Nitrite Test strip Ql (U)Ord ered By: Tray Randle on 12-09-2021 Nitrite Ql (U) Positive Negative [facility] No Panel InformationOrdered By: Tray Randle on 12-09-2021 SARS Antigen (LFIA) [facility] Protein Auto test strip (U) [Mass/Vol]Ordered By: Tray Randle on 12-09-2021 Protein (U) [Mass/Vol] Negative Negative Fi [facility] Specific gravity Auto test s trip (U) [Rel density]Ordered By: Tray Randle on 12-09-2021 Specific gravity (U) [Rel density] 1.030 1.001-1.03 0 [facility] Squamous epithelial cells de tection in urine sediment by light microscopyOrdered By: Tray Randle on 12-09-2021 Epithelial cells.squamous LM Ql (Urine sed) 10-19 [HPF] 0-2 [facility] Troponin I.cardiac [Mass/vol ume] in Serum or Plasma by High sensitivity methodOrdered By: Arleen Stephen on 12-09-2021 Troponin I.cardiac High sensitivity method [Mass/Vol] 5 pg/mL 0-15 [facility] Urine bacteria detection by automated methodOrdered By: Tray Randle on 12-09-2021 Bacteria Auto Ql (U) 4+ None Seen [facility] Urine clarity by refractomet ry automatedOrdered By: Tray Randle on 12-09-2021 Clarity Refractometry automated (U) Cloudy Clear [facility] Urine glucose measurement by automated test strip (mass/volume)Ordered By: Tray Randle on 12-09-2021 Glucose Auto test strip (U) [Mass/Vol] >=1000 mg/dL Normal [facility] Urine hemoglobin detection b y automated test stripOrdered By: Tray Randle on 12-09-2021 Hemoglobin Auto test strip Ql (U) Trace Negative [facility] Urine lactic acid measuremen tOrdered By: Arleen Stephen on 12-09-2021 Lactate (U) [Moles/Vol] 1.7 mmol/L 0.5-2.2 F [facility] Urine leukocyte esterase det ection by automated test stripOrdered By: Tray Randle on 12-09-2021 Leukocyte esterase Auto test strip Ql (U) 2+ Negative [facility] Urobilinogen Auto test strip (U) [Mass/Vol]Ordered By: Trayumu Randle on 12-09-2021 Urobilinogen (U) [Mass/Vol] Normal mg/dL Normal [facility] pH Auto test strip (U)Ordere d By: Tray Jer on 12-09-2021 pH (U) 5.5 [pH] 5.0-9.0 [facility] A1C HEMOGLOBINon 10-12-2021 HbA1c (Bld) [Mass fraction] 7.5 % [employer] Other HbA1c (Bld) [Mass fraction]o n 10-12-2021 A1C HEMOGLOBIN [facility] Other A1C HEMOGLOBINon 07-10-2021 HbA1c (Bld) [Mass fraction] 6 % [facility] Other Glucose - FINGER STICKon Glucose [Mass/Vol] 150 mg/dL [facility] Other HbA1c (Bld) [Mass fraction]o n 07-10-2021 A1C HEMOGLOBIN youcalc Other A1C HEMOGLOBINon 03-27-2021 HbA1c (Bld) [Mass fraction] 6.9 % [employer] Other Glucose - FINGER STICKon Glucose [Mass/Vol] 244 mg/dL [facility] Other HbA1c (Bld) [Mass fraction]o n 03-27-2021 A1C HEMOGLOBIN youcalc Other PROGRESSon 02-12-2019 PROGRESS HNO ID: [id number] Author: Clyde Hall Service: ? Author Type: [...] healing still. - RTC to see Nov at [facility], to ensure complete healing, and further discuss plan of care re pathology results. - call office prn for issues/concerns Clyde Hall APRN.[facility] CNOVon 02-11-2019 CNOV Office Visit (GYNML) -------- TAYE GAY ([id number]) 1955 F Date Time Provider Department 02/11/19 2:30 PM CLYDE HALL (JAYSON) GYN During your visit today, we recorded the following information about you: Temperature Pulse Blood pressure Weight 98.7 degrees 99/minute 124/67 93.3 kg Clyde Hall APRN.SUPERVISOR TELEPHONE INFORMATION 02/12/2019 12:57 PM Signed Taye presents for [...] of healing still. - RTC to see Feb 27 at [facility], to ensure complete healing, and further discuss plan of care re pathology results. - call office prn for issues/concerns Cylde Hall APRN.SUPERVISOR TELEPHONE INFORMATION Referring Provider: THEO JOAQUIN [[id number]] Allergies As of Date: 02/11/2019 Noted Allergy [...] Status:Closed by CLYDE HALL CNP on 02/12/19 [facility] CNOVon 01-21-2019 CNOV Office Visit (GYNML) -------- TAYE GAY ([id number]) 1955 F Date Time Provider Department 01/21/19 10:45 AM THEO JOAQUIN GYNML During your visit today, we recorded the following information about you: Temperature Pulse Blood pressure Weight 98.6 degrees 94/minute 111/52 91.4 kg Theo Joaquin MD 01/22/2019 2:06 PM Signed Gynecologic Oncology [facility] Re: Taye Duranaton CCF#:[id number] 01/21/2019 Dear Nereida Castro: Taye presents for [...] were sent to: Nereida Castro MD (DrC) [facility] [address] [address] CC: Jonas Yoder MD (PCP) Referring Provider: THEO JOAQUIN [[id number]] Allergies As of Date: 01/21/2019 Noted Allergy [...] by THEO JOAQUIN MD on 01/22/19 [facility] PROGRESSon 01-08-2019 PROGRESS HNO ID: [id number] Author: Theo Joaquin Service: ? Author Type: Physician Type: Progress Notes Filed: 01/22/2019 2:06 PM Note Text: Gynecologic Oncology [facility] Re: Taye Gay CCF#:[id number] 01/21/2019 Dear Nereida Castro: Taye presents for [...] were sent to: Nereida Castro MD (DrC) [address] [place] [phone] CC: [facility] ([facility]NML) -------- PRITI,TAYE ([id number]) 1955 F Date Time Provider Department 01/07/19 8:30 AM THEO JOAQUIN GYNML During your visit today, we recorded the following information about you: Temperature Pulse Blood pressure Weight 98.4 degrees 124/minute 103/53 90.2 kg Theo Joaquin MD 01/10/2019 11:17 PM Signed Gynecologic Oncology [facility] Re: Taye Gay CCF#:[id number] 01/07/2019 Dear Nereida Castro: Taye presents for [...] note were sent to: Nereida Castro MD ([facility]) [facility] [address] CC: Jonas Yoder MD (PCP) Referring Provider: THEO JOAQUIN [[id number]] Allergies As of Date: 01/07/2019 Noted Allergy [...] Status:Closed by THEO JOAQUIN MD on [facility]10/[facility] ([facility]) -------- TAYE GAY ([id number]) 1955 F Date Time Provider Department 01/06/19 SHANTEL REYNOSO (RN) GYNML During your visit today, we recorded [...] Appointment made with Dr. Joaquin 01/07 @ 4371 for wound check Patient verbalized understanding and [...] More... Smoker [F17.200] More... Encounter Status:Closed by NELIASHANTEL on 01/06/19 [facility] PROGRESSon 01-06-2019 PROGRESS HNO ID: [id number] Author: Theo Joaquin Service: ? Author Type: Physician Type: Progress Notes Filed: 01/10/2019 11:17 PM Note Text: Gynecologic Oncology [facility] Re: Taye Gay CCF#:[id number] 01/07/2019 Dear Nereida Castro: Taye presents for [...] were sent to: Nereida Castro MD (DrC) [address] [place] [phone] CC: Jonas Yoder MD (PCP) [facility] ANES Yousuf 01-01-2019 ANES POST HNO ID: [id number] Author: Katharina Durham Service: Anesthesiology Author Type: [...] 2019 TIME: 9:45 AM PAGER/CONTACT #: [facility] ANES PREOPon 01-01-2019 ANES PREOP HNO ID: [id number] Author: Katharina Durham Service: Anesthesiology Author Type: [...] ASA Monitors Pain Management Plan: ROOT Protocol [facility] Chart Review ACTIVE PROBLEM LIST Hypertension Diabetes [...] for 7 days Inpatient medications reviewed in [facility]. I have interviewed and examined the patient. [...] 01, 2019 TIME: 7:35 AM PAGER/CONTACT #: [facility] HISTORY PHYSICALon 9 HISTORY PHYSICAL HNO ID: [id number] Author: Petty Shahid (Fel) Service: Gynecology Oncology [...] 01, 2019 TIME: 7:16 AM PAGER: [facility] OPERATIVE NOon 01-01-2019 OPERATIVE NO HNO ID: [id number] Author: Theo Joaquin Service: Gynecology Oncology Author Type: Physician Type: Operative Report Filed: 01/17/2019 7:16 PM Note Text: OPERATIVE/PROCEDURE REPORT LOG ID: [id number] SURGERY/PROCEDURE DATE: 01/01/2019 INCISION/PROCEDURE START TIME: 8:11 AM INCISION CLOSE/PROCEDURE END TIME: 8:34 AM SURGEON(S)/PROCEDURALIST (S) AND HOTEL SERVER(S): Surgeon(s) and Role: * Theo Joaquin - [...] 2019 TIME: 2:24 PM PAGER/CONTACT #: [facility] PT EDon 01-01-2019 PT ED HNO ID: [id number] Author: Patty (Rn) BRENDA Bernal Service: Nursing Author Type: Registered [...] st Electronically Signed By: Patty Bernal RN [facility] PT ED HNO ID: [id number] Author: Milly GalvinRnOziel Murry RN Service: Nursing Author Type: Registered [...] Electronically Signed By: Milly Murry RN [facility] PT ED HNO ID: [id number] Author: Jelly GalvinRnOziel Simmons RN Service: Nursing Author Type: Registered Nurse [...] None Electronically Signed By: Jelly Simmons RN Normal [facility] SURGICAL PATHOLOGYon 019 SURGICAL PATHOLOGY Specimen originated from [facility] Specimen #: [id number] Submitting Physician: THEO JOAQUIN MD __ FINAL [...] order from 12 o'clock to 6 o'clock. WE/kr 01/01/2019 Gross examination performed at [facility], [address] [address] Date of Report: 01/05/2019 Date of Procedure: 01/01/2019 Date of Receipt: 01/01/2019 Submitted by: THEO JOAQUIN MD Location: [facility] Diagnostic interpretation performed at [facility], [address] [place] [address]. CLIA Number: [id number] [facility] NURSING PROGon 12-24-2018 NURSING PROG HNO ID: [id number] Author: Nataliya Bell RN Service: Nursing Author Type: Registered Nurse [...] RN December 24, 2018 3:07 PM [facility] Confirm Blood Typeon 019 ABO/RH(D) Positive Normal [facility] Comment on above: Performed By: #### C ONABO #### [facility] [address] [phone] Type and SCR (30D)on 019 ABO/RH(D) Positive Normal [facility] Comment on above: Performed By: #### T SCR30 #### [facility] [address] [phone] HOSPon 12-05-2018 HOSP Patient:Taye Gay MRN: Height:5' [...] 51.2 % 12/17/2018 46.0 36.0 Progress Notes ([facility]): Aracelis Charles, RN, RN 12/22/2018 11:38 AM Signed Pre-op teaching Procedure: vulvar surgery Physician: Location: [facility]: [phone] Date AND Time: 01/01/19 MEDICAL CLEARANCE: No [...] Naprosyn(naproxen) Agrylin NSAIDS Pepto-Bismol Aleve Ecotrin Persantine [place] Excedrin Plaquenil Anacin Heparin Plavix Ascriptin Herbals [...] - IV pain medication after surgery, IV UTILIZATION COORDINATOR if ordered by MD, discharged home with a prescription for PO pain medication, pain management after surgery, side effects of pain medication (including constipation, dizziness, drowsiness, and medication interactions). DVT PROPHYLAXIS - Early ambulation, SCDs, injectable anticoagulants (heparin, lovenox, etc) RESPIRATORY - Incentive spirometer, coughing/deep breathing exercises, ambulation. RETURN TO WORK - As directed by physician, please send any FMLA papers to physician's secretary to the vice president. SYMPTOMS TO NOTIFY MD - Fever, chills, nausea, vomiting, increased or severe pain, heavy vaginal bleeding, foul smelling vaginal drainage, pain or swelling in extremities. URGENT SYMPTOMS - Call 911 or go to ER if any shortness of breath, difficulty breathing, or chest pain. HOW TO CONTACT PHYSICIAN - Physician's office phone number given to patient, if after hours patient instructed to call sole leather cutting machine operator and ask for the doctor telephone exchange operator. Patient and family have phone number to call 24 hours/day. Patient Evaluation: Verbalizes understanding Patient and/or family express understanding of upcoming surgery and the operative process. Questions answered. Follow Up Plan: Follow up as needed Supplemental Material Given: Pre-operative teaching packet provided to the patient: INPATIENT/OUTPATIENT printed instructions; Post-operative instruction sheet, bowel prep instruction sheet For questions contact: office at [phone] Instructed By Aracelis Charles RN [facility] Serum or plasma calcidiol me asurement (mass/volume)on 07-10-2018 25-hydroxyvitamin D3 [Mass/Vol] 32.8 ng/mL 30-100 [facility] Comment on above: VITAMIN D STATUS 25( [place])VITAMIN D RANGE (ng/mL) Deficient <20 Insufficient 20 to <30Sufficient 30 to 100Reference: Sandra MF,Felisha NC, Leon SHERWOOD, et al. Evaluation,treatment, and prevention of vitamin D deficiency; an Endocrine Society clinical practice guideline. JCEM. 2010; 96(7):1911-30. Vitamin B12 ser/plason 07-10 Cobalamin (Vitamin B12) [Mass/Vol] 446 pg/mL 180-914 [facility] BASIC METABOLIC PANELon 04-29 Anion gap 11 mmol/L Normal 0-19 [facility] Comment on above: Performed By: #### B MP ####[address],[place] [address] BUN/Creatinine Ratio 16.0 RATIO Normal 8-21 [facility] Comment on above: Performed By: #### B MP ####[address],[place] [address] Calcium 9.1 mg/dL Normal 8.5-10.4 [facility] Comment on above: Performed By: #### B MP ####[address],[place] [address] Chloride 98 mmol/L Normal 97-107 [facility] Comment on above: Performed By: #### B MP ####[address],[place] [address] CO2 25 mmol/L Normal 24-31 [facility] Comment on above: Performed By: #### B MP ####[address],[place] [address] Creatinine 0.5 mg/dL Normal 0.4-1.6 [facility] Comment on above: Performed By: #### B MP ####[address],[place] [address] eGFR (MDRD) Normal [facility] Comment on above: Result Comment: 134G FR ml/min/1.73m2 Stage -----90 160-89 230-59 315-29 4<15 5For -Americans, multiply EGFR result by 1.210Calculation not validated for patients under 18 years of age.Performed at [facility],[address],[place] [address] Performed By: #### B MP ####[address],[place] [address] Glucose mass conc 331 mg/dL High 65-99 [facility] Comment on above: Performed By: #### B MP ####[address],[place] [address] Potassium molar conc 4.6 mmol/L Normal 3.4-5.1 [facility] Comment on above: Performed By: #### B MP ####[address],[place] [address] Sodium 134 mmol/L Normal 133-145 [facility] Comment on above: Performed By: #### B MP ####[address],[place] [address] Urea nitrogen 8 mg/dL Normal 8-25 [facility] Comment on above: Performed By: #### B MP ####[address],[place] [address] EKGon 05-16-2017 EKG EKGVentric ular Rate : 60 BPMAtrial Rate : 60 BPMP-R Interval : 166 msQRS Duration : 80 msQ-T Interval : 432 msQTC Calculation(Bezet) : 432 msCalculated P [place] : 63 degreesCalculated R [place] : 29 degreesCalculated T [place] : 35 degreesDiagnosis:Normal sinus rhythmNormal ECGNo previous ECGs availableConfirmed by Walter Slaughter ([id number]) on 05/16/2017 3:45:18 PM Normal [facility] HEMOGLOBIN,HCTon 05-16-2017 Hematocrit (HCT) High 36-44 [facility] Comment on above: Result Comment: 49.3 Performed at [facility],[address],[place] [address] Performed By: #### H H ####[address],[place] [address] Hemoglobin mass conc (Bld) 16.9 g/dL High 12.0-15.0 [facility] Comment on above: Performed By: #### H H ####[address],[place] [address] Operative Reporton 8 Operative Report Normal [facility] POCT GLUCOSEon 05-16-2017 Glucose mass conc 268 mg/dL High 65-99 [facility] Comment on above: Performed By: #### P CGL ####[facility] [address] [place] [address] Glucose mass conc 292 mg/dL High 65-99 [facility] Comment on above: Performed By: #### P CGL ####[facility] [address] [place] [address] Glucose mass conc 358 mg/dL High 65-99 [facility] Comment on above: Performed By: #### P CGL ####N[facility]an [id number] [place] [address] Glucose mass conc 243 mg/dL High 65-99 [facility] Comment on above: Performed By: #### P CGL ####[facility] [id number] [place] [address] Vital Signs Date Time Vital Sign Value Performing Clinician Yue perez 06-26-2024 09:46-0500 Body height 170.2 cm Roland Faust MD Work Phone: [facility] 06-26-2024 09:46-0500 Body mass index (BMI) [Ratio] 32.51 kg/m2 Roland Faust MD Work Phone: [facility] 06-26-2024 09:46-0500 Body weight 94.17 kg Roland Faust MD Work Phone: [facility] 06-26-2024 09:46-0500 Diastolic blood pressure 70 mm[Hg] Roland Faust MD Work Phone: [facility] 06-26-2024 09:46-0500 Heart rate 62 /min Roland Faust MD Work Phone: [facility] 06-26-2024 09:46-0500 Systolic blood pressure 116 mm[Hg] Roland Faust MD Work Phone: [facility] 05-07-2024 13:07-0500 Body height 170.18 cm Sandra Keita DO Work Phone: [facility] 05-07-2024 13:07-0500 Body mass index (BMI) [Ratio] 32.9 kg/m2 Sandra Keita DO Work Phone: [facility] 05-07-2024 13:07-0500 Body weight 95.3 kg Sandra Keita DO Work Phone: [facility] 05-07-2024 13:07-0500 Diastolic blood pressure 52 mm[Hg] Sandra Keita DO Work Phone: [facility] 05-07-2024 13:07-0500 Heart rate 64 /min Sandra Keita DO Work Phone: [facility] 05-07-2024 13:07-0500 Respiratory rate 18 /min Sandra Keita DO Work Phone: [facility] 05-07-2024 13:07-0500 SaO2% (BldA) [Mass fraction] 97 % Sandra Keita DO Work Phone: [facility] 05-07-2024 13:07-0500 Systolic blood pressure 82 mm[Hg] Sandra Keita DO Work Phone: [facility] 04-30-2024 08:25-0500 Body temperature 97.8 [degF] Sandra Keita DO Work Phone: [facility] 04-30-2024 08:25-0500 Diastolic blood pressure 83 mm[Hg] Sandra Keita DO Work Phone: [facility] 04-30-2024 08:25-0500 Heart rate 64 /min Sandra Keita DO Work Phone: [facility] 04-30-2024 08:25-0500 Respiratory rate 18 /min Sandra Keita DO Work Phone: [facility] 04-30-2024 08:25-0500 SaO2% (BldA) [Mass fraction] 96 % Sandra Keita DO Work Phone: [facility] 04-30-2024 08:25-0500 Systolic blood pressure 141 mm[Hg] Sandra Keita DO Work Phone: [facility] 04-30-2024 05:12-0500 Body weight 96.2 kg Sandra Keita DO Work Phone: [facility] 04-28-2024 23:40-0500 Body height 170.18 cm Sandra Keita DO Work Phone: [facility] 04-28-2024 23:19-0500 Diastolic blood pressure 68 mm[Hg] Sandra Keita DO Work Phone: [facility] 04-28-2024 23:19-0500 Heart rate 72 /min Sandra Keita DO Work Phone: [facility] 04-28-2024 23:19-0500 Respiratory rate 18 /min Sandra Keita DO Work Phone: [facility] 04-28-2024 23:19-0500 SaO2% (BldA) [Mass fraction] 98 % Sandra Keita DO Work Phone: [facility] 04-28-2024 23:19-0500 Systolic blood pressure 135 mm[Hg] Sandra Keita DO Work Phone: [facility] 04-28-2024 19:39-0500 Body height 170.18 cm Sandra Keita DO Work Phone: [facility] 04-28-2024 19:39-0500 Body temperature 98.1 [degF] Sandra Keita DO Work Phone: [facility] 04-28-2024 19:39-0500 Body weight 95.4 kg Sandra Keita DO Work Phone: [facility] 04-28-2024 11:35-0500 Body height 170.18 cm Sandra Keita DO Work Phone: [facility] 04-28-2024 11:35-0500 Body mass index (BMI) [Ratio] 32.5 kg/m2 Sandra Keita DO Work Phone: [facility] 04-28-2024 11:35-0500 Body weight 94.34 kg Sandra Keita DO Work Phone: [facility] 04-28-2024 11:35-0500 Diastolic blood pressure 58 mm[Hg] Sandra Keita DO Work Phone: [facility] 04-28-2024 11:35-0500 Heart rate 71 /min Sandra Keita DO Work Phone: [facility] 04-28-2024 11:35-0500 Respiratory rate 18 /min Sandra Keita DO Work Phone: [facility] 04-28-2024 11:35-0500 SaO2% (BldA) [Mass fraction] 94 % Sandra Keita DO Work Phone: [facility] 04-28-2024 11:35-0500 Systolic blood pressure 94 mm[Hg] Sandra Keita DO Work Phone: [facility] 04-28-2024 10:15-0500 Body height 170.18 cm Sandra Keita DO Work Phone: [facility] 04-28-2024 10:15-0500 Body mass index (BMI) [Ratio] 32.7 kg/m2 Sandra Keita DO Work Phone: [facility] 04-28-2024 10:15-0500 Body temperature 97.9 [degF] Sandra Keita DO Work Phone: [facility] 04-28-2024 10:15-0500 Body weight 94.8 kg Sandra Keita DO Work Phone: [facility] 04-28-2024 10:15-0500 Diastolic blood pressure 64 mm[Hg] Sandra Keita DO Work Phone: [facility] 04-28-2024 10:15-0500 Heart rate 70 /min Sandra Keita DO Work Phone: [facility] 04-28-2024 10:15-0500 Respiratory rate 16 /min Sandra Keita DO Work Phone: [facility] 04-28-2024 10:15-0500 SaO2% (BldA) [Mass fraction] 96 % Sandra Keita DO Work Phone: [facility] 04-28-2024 10:15-0500 Systolic blood pressure 88 mm[Hg] Sandra Ekita DO Work Phone: [facility] 04-27-2024 14:29-0500 Body height 170.18 cm Sandra Keita DO Work Phone: [facility] 04-27-2024 14:29-0500 Body temperature 98 [degF] Sandra Keita DO Work Phone: [facility] 04-27-2024 14:29-0500 Body weight 90.71 kg Sandra Keita DO Work Phone: [facility] 04-27-2024 14:29-0500 Diastolic blood pressure 61 mm[Hg] Sandra Keita DO Work Phone: [facility] 04-27-2024 14:29-0500 Heart rate 80 /min Sandra Keita DO Work Phone: [facility] 04-27-2024 14:29-0500 Respiratory rate 18 /min Sandra Keita DO Work Phone: [facility] 04-27-2024 14:29-0500 SaO2% (BldA) [Mass fraction] 93 % Sandra Keita DO Work Phone: [facility] 04-27-2024 14:29-0500 Systolic blood pressure 116 mm[Hg] Sandra Keita DO Work Phone: [facility] 04-14-2024 09:35-0500 Body height 170.18 cm Sandra Keita DO Work Phone: [facility] 04-14-2024 09:35-0500 Body mass index (BMI) [Ratio] 32.1 kg/m2 Sandra Keita DO Work Phone: [facility] 04-14-2024 09:35-0500 Body temperature 98 [degF] Sandra Keita DO Work Phone: [facility] 04-14-2024 09:35-0500 Body weight 92.98 kg Sandra Keita DO Work Phone: [facility] 04-14-2024 09:35-0500 Diastolic blood pressure 80 mm[Hg] Sandra Keita DO Work Phone: [facility] 04-14-2024 09:35-0500 Heart rate 78 /min Sandra Keita DO Work Phone: [facility] 04-14-2024 09:35-0500 Respiratory rate 20 /min Sandra Keita DO Work Phone: [facility] 04-14-2024 09:35-0500 SaO2% (BldA) [Mass fraction] 98 % Sandra Keita DO Work Phone: [facility] 04-14-2024 09:35-0500 Systolic blood pressure 126 mm[Hg] Sandra Keita DO Work Phone: [facility] 04-07-2024 13:26-0500 Body height 170.2 cm Oz Kincaid MD Work Phone: [facility] 04-07-2024 13:26-0500 Body mass index (BMI) [Ratio] 31.32 kg/m2 Oz Kincaid MD Work Phone: [facility] 04-07-2024 13:26-0500 Body weight 90.72 kg Oz Kincaid MD Work Phone: [facility] 03-25-2024 13:42-0500 Body height 170.2 cm Roland Faust MD Work Phone: [facility] 03-25-2024 13:42-0500 Body mass index (BMI) [Ratio] 32.58 kg/m2 Roland Faust MD Work Phone: [facility] 03-25-2024 13:42-0500 Body weight 94.35 kg Roland Faust MD Work Phone: [facility] 03-25-2024 13:42-0500 Diastolic blood pressure 64 mm[Hg] Roland Faust MD Work Phone: [facility] 03-25-2024 13:42-0500 Heart rate 63 /min Roland Faust MD Work Phone: [facility] 03-25-2024 13:42-0500 Systolic blood pressure 100 mm[Hg] Roland Faust MD Work Phone: [facility] 02-25-2024 13:55-0400 Body height 170.2 cm Oz Kincaid MD Work Phone: [facility] 02-25-2024 13:55-0400 Body mass index (BMI) [Ratio] 31.32 kg/m2 Oz Kincaid MD Work Phone: [facility] 02-25-2024 13:55-0400 Body weight 90.72 kg Oz Kincaid MD Work Phone: [facility] 02-25-2024 13:55-0400 Diastolic blood pressure 84 mm[Hg] Oz Kincaid MD Work Phone: [facility] 02-25-2024 13:55-0400 Heart rate 74 /min Oz Kincaid MD Work Phone: [facility] 02-25-2024 13:55-0400 Systolic blood pressure 130 mm[Hg] Oz Kincaid MD Work Phone: [facility] 02-14-2024 13:23-0400 Body height 170.18 cm Sandra Keita DO Work Phone: [facility] 02-14-2024 13:23-0400 Body weight 90.71 kg Sandra Keita DO Work Phone: [facility] 02-03-2024 11:56-0400 Body height 170.18 cm DO Sandra Keita Work Phone: [facility] 02-03-2024 11:56-0400 Body mass index (BMI) [Ratio] 31.6 kg/m2 DO Sandra Keita Work Phone: [facility] 02-03-2024 11:56-0400 Body weight 91.62 kg DO Sandra Keita Work Phone: [facility] 02-03-2024 11:56-0400 Diastolic blood pressure 68 mm[Hg] DO Sandra Keita Work Phone: [facility] 02-03-2024 11:56-0400 Heart rate 63 /min DO Sandra Keita Work Phone: [facility] 02-03-2024 11:56-0400 Respiratory rate 18 /min DO Sandra Keita Work Phone: [facility] 02-03-2024 11:56-0400 SaO2% (BldA) [Mass fraction] 98 % DO Sandra Keita Work Phone: [facility] 02-03-2024 11:56-0400 Systolic blood pressure 100 mm[Hg] DO Sandra Keita Work Phone: [facility] 01-15-2024 15:38-0400 Body height 170.18 cm DO Sandra Keita Work Phone: [facility] 01-15-2024 15:38-0400 Body mass index (BMI) [Ratio] 31.3 kg/m2 DO Sandra Keita Work Phone: [facility] 01-15-2024 15:38-0400 Body weight 90.77 kg DO Sandra Keita Work Phone: [facility] 01-07-2024 13:18-0400 Body height 170.2 cm Oz Kincaid MD Work Phone: [facility] 01-07-2024 13:18-0400 Body mass index (BMI) [Ratio] 31.32 kg/m2 Oz Kincaid MD Work Phone: [facility] 01-07-2024 13:18-0400 Body weight 90.72 kg Oz Kincaid MD Work Phone: [facility] 01-07-2024 13:18-0400 Diastolic blood pressure 74 mm[Hg] Oz Kincaid MD Work Phone: [facility] 01-07-2024 13:18-0400 Heart rate 62 /min Oz Kincaid MD Work Phone: [facility] 01-07-2024 13:18-0400 Systolic blood pressure 107 mm[Hg] Oz Kincaid MD Work Phone: [facility] 12-16-2023 10:40-0400 Body height 170.2 cm Roland Faust MD Work Phone: [facility] 12-16-2023 10:40-0400 Body mass index (BMI) [Ratio] 30.48 kg/m2 Roland Faust MD Work Phone: [facility] 12-16-2023 10:40-0400 Body weight 88.27 kg Roland Faust MD Work Phone: [facility] 12-16-2023 10:40-0400 Diastolic blood pressure 64 mm[Hg] Roland Faust MD Work Phone: [facility] 12-16-2023 10:40-0400 Heart rate 73 /min Roland Faust MD Work Phone: [facility] 12-16-2023 10:40-0400 Systolic blood pressure 102 mm[Hg] Roland Faust MD Work Phone: [facility] 11-18-2023 13:14-0400 Body height 170.18 cm DO Sandra Keita Work Phone: [facility] 11-18-2023 13:14-0400 Body mass index (BMI) [Ratio] 28.6 kg/m2 DO Sandra Keita Work Phone: [facility] 11-18-2023 13:14-0400 Body weight 83 kg DO Sandra Keita Work Phone: [facility] 11-18-2023 13:14-0400 Diastolic blood pressure 62 mm[Hg] DO Sandra Keita Work Phone: [facility] 11-18-2023 13:14-0400 Heart rate 54 /min DO Sandra Keita Work Phone: [facility] 11-18-2023 13:14-0400 Respiratory rate 18 /min DO Sandra Keita Work Phone: [facility] 11-18-2023 13:14-0400 SaO2% (BldA) [Mass fraction] 97 % DO Sandra Keita Work Phone: [facility] 11-18-2023 13:14-0400 Systolic blood pressure 96 mm[Hg] DO Sandra Keita Work Phone: [facility] 11-14-2023 15:07-0400 Body height 170.18 cm DO Sandra Keita Work Phone: [facility] 11-14-2023 15:07-0400 Body mass index (BMI) [Ratio] 28.5 kg/m2 DO Sandra Keita Work Phone: [facility] 11-14-2023 15:07-0400 Body weight 82.8 kg DO Sandra Keita Work Phone: [facility] 11-14-2023 15:07-0400 Diastolic blood pressure 72 mm[Hg] DO Sandra Keita Work Phone: [facility] 11-14-2023 15:07-0400 Heart rate 67 /min DO Sandra Debbie Work Phone: [facility] 11-14-2023 15:07-0400 Respiratory rate 18 /min DO Sandra Debbie Work Phone: [facility] 11-14-2023 15:07-0400 SaO2% (BldA) [Mass fraction] 97 % DO Sandra Debbie Work Phone: [facility] 11-14-2023 15:07-0400 Systolic blood pressure 110 mm[Hg] DO Sandra Debbie Work Phone: [facility] 11-13-2023 13:54-0400 Body height 170.2 cm Jonas Ch MD Work Phone: [facility] 11-13-2023 13:54-0400 Body mass index (BMI) [Ratio] 28.19 kg/m2 Jonas Ch MD Work Phone: [facility] 11-13-2023 13:54-0400 Body weight 81.65 kg Jonas Ch MD Work Phone: [facility] 11-13-2023 13:54-0400 Diastolic blood pressure 70 mm[Hg] Jonas Ch MD Work Phone: [facility] 11-13-2023 13:54-0400 Heart rate 87 /min Jonas Ch MD Work Phone: [facility] 11-13-2023 13:54-0400 Systolic blood pressure 108 mm[Hg] Jonas Ch MD Work Phone: [facility] 11-12-2023 16:12-0400 Diastolic blood pressure 83 mm[Hg] DO Sandra Keita Work Phone: [facility] 11-12-2023 16:12-0400 Heart rate 61 /min DO Sandra Keita Work Phone: [facility] 11-12-2023 16:12-0400 Respiratory rate 16 /min DO Sandra Keita Work Phone: [facility] 11-12-2023 16:12-0400 SaO2% (BldA) [Mass fraction] 96 % DO Sandra Keita Work Phone: [facility] 11-12-2023 16:12-0400 Systolic blood pressure 149 mm[Hg] DO Sandra Keita Work Phone: [facility] 11-12-2023 12:16-0400 Body temperature 97.5 [degF] DO Sandra Keita Work Phone: [facility] 11-12-2023 06:00-0400 Body weight 83.5 kg DO Sandra Keita Work Phone: [facility] 11-10-2023 08:23-0400 Body height 170.18 cm DO Sandra Keita Work Phone: [facility] 11-10-2023 05:05-0400 Diastolic blood pressure 67 mm[Hg] DO Sandra Keita Work Phone: [facility] 11-10-2023 05:05-0400 Heart rate 62 /min DO Sandra Keita Work Phone: [facility] 11-10-2023 05:05-0400 Respiratory rate 18 /min DO Sandra Debbie Work Phone: [facility] 11-10-2023 05:05-0400 SaO2% (BldA) [Mass fraction] 100 % DO Sandra Debbie Work Phone: [facility] 11-10-2023 05:05-0400 Systolic blood pressure 144 mm[Hg] DO Sandra Debbie Work Phone: [facility] 11-10-2023 03:44-0400 Body temperature 98.1 [degF] DO Sandra Debbie Work Phone: [facility] 11-09-2023 22:16-0400 Body height 170.18 cm DO Sandrarebecca Keita Work Phone: [facility] 11-09-2023 22:16-0400 Body weight 81.64 kg DO Sandrarebecca Keita Work Phone: [facility] 11-05-2023 12:36-0400 SaO2% (BldA) [Mass fraction] 100 % DO Sandrarebecca Keita Work Phone: [facility] 10-07-2023 09:48-0400 Body height 170.2 cm Jonas Ch MD Work Phone: [facility] 10-07-2023 09:48-0400 Body mass index (BMI) [Ratio] 28.19 kg/m2 Jonas Ch MD Work Phone: [facility] 10-07-2023 09:48-0400 Body weight 81.65 kg Jonas Ch MD Work Phone: [facility] 10-07-2023 09:48-0400 Diastolic blood pressure 90 mm[Hg] Jonas Ch MD Work Phone: [facility] 10-07-2023 09:48-0400 Heart rate 92 /min Jonas Ch MD Work Phone: [facility] 10-07-2023 09:48-0400 Systolic blood pressure 114 mm[Hg] Jonas Ch MD Work Phone: [facility] 09-17-2023 13:02-0400 Body height 167.64 cm DO Sandra Keita Work Phone: [facility] 09-17-2023 13:02-0400 Body mass index (BMI) [Ratio] 29 kg/m2 DO Sandra Keita Work Phone: [facility] 09-17-2023 13:02-0400 Body weight 81.67 kg DO Sandra Keita Work Phone: [facility] 09-17-2023 13:02-0400 Diastolic blood pressure 64 mm[Hg] DO Sandra Keita Work Phone: [facility] 09-17-2023 13:02-0400 Heart rate 117 /min DO Sandra Keita Work Phone: [facility] 09-17-2023 13:02-0400 Respiratory rate 18 /min DO Sandra Keita Work Phone: [facility] 09-17-2023 13:02-0400 SaO2% (BldA) [Mass fraction] 99 % DO Sandra Keita Work Phone: [facility] 09-17-2023 13:02-0400 Systolic blood pressure 92 mm[Hg] DO Sandra Keita Work Phone: [facility] 09-14-2023 16:11-0400 Body temperature 97.7 [degF] DO Sandra Keita Work Phone: [facility] 09-14-2023 16:11-0400 Diastolic blood pressure 70 mm[Hg] DO Sandra Keita Work Phone: [facility] 09-14-2023 16:11-0400 Heart rate 74 /min DO Sandra Keita Work Phone: [facility] 09-14-2023 16:11-0400 Respiratory rate 17 /min DO Sandra Keita Work Phone: [facility] 09-14-2023 16:11-0400 SaO2% (BldA) [Mass fraction] 95 % DO Sandra Keita Work Phone: [facility] 09-14-2023 16:11-0400 Systolic blood pressure 115 mm[Hg] DO Sandra Keita Work Phone: [facility] 09-14-2023 06:00-0400 Body weight 83.2 kg DO Sandra Keita Work Phone: [facility] 09-13-2023 12:41-0400 Body height 170.18 cm DO Sandra Keita Work Phone: [facility] 09-12-2023 13:58-0400 Body height 167.64 cm DO Sandra Keita Work Phone: [facility] 09-12-2023 13:58-0400 Body mass index (BMI) [Ratio] 29 kg/m2 DO Sandra Keita Work Phone: [facility] 09-12-2023 13:58-0400 Body weight 81.64 kg DO Sandra Keita Work Phone: [facility] 09-12-2023 13:58-0400 Diastolic blood pressure 81 mm[Hg] DO Sandra Keita Work Phone: [facility] 09-12-2023 13:58-0400 Heart rate 135 /min DO Sandra Keita Work Phone: [facility] 09-12-2023 13:58-0400 Respiratory rate 18 /min DO Sandra Keita Work Phone: [facility] 09-12-2023 13:58-0400 SaO2% (BldA) [Mass fraction] 97 % DO Sandra Keita Work Phone: [facility] 09-12-2023 13:58-0400 Systolic blood pressure 112 mm[Hg] DO Sandra Keita Work Phone: [facility] 07-17-2023 11:43-0400 Body height 167.64 cm [facility] 07-17-2023 11:43-0400 Body mass index (BMI) [Ratio] 28.8 kg/m2 [facility] 07-17-2023 11:43-0400 Body temperature 97.8 [degF] [facility] 07-17-2023 11:43-0400 Body weight 81.19 kg [facility] 07-17-2023 11:43-0400 Diastolic blood pressure 64 mm[Hg] [facility] 07-17-2023 11:43-0400 Heart rate 78 /min [facility] 07-17-2023 11:43-0400 Respiratory rate 16 /min [facility] 07-17-2023 11:43-0400 SaO2% (BldA) [Mass fraction] 98 % [facility] 07-17-2023 11:43-0400 Systolic blood pressure 112 mm[Hg] [facility] 06-19-2023 15:53-0500 Body height 167.64 cm [facility] 06-19-2023 15:53-0500 Body mass index (BMI) [Ratio] 28.9 kg/m2 [facility] 06-19-2023 15:53-0500 Body weight 81.33 kg [facility] 06-19-2023 15:53-0500 Diastolic blood pressure 68 mm[Hg] [facility] 06-19-2023 15:53-0500 Heart rate 95 /min [facility] 06-19-2023 15:53-0500 Respiratory rate 18 /min [facility] 06-19-2023 15:53-0500 SaO2% (BldA) [Mass fraction] 97 % [facility] 06-19-2023 15:53-0500 Systolic blood pressure 92 mm[Hg] [facility] 06-12-2023 15:38-0500 Body height 167.64 cm [facility] 06-12-2023 15:38-0500 Body mass index (BMI) [Ratio] 28.5 kg/m2 [facility] 06-12-2023 15:38-0500 Body weight 80.28 kg [facility] 06-12-2023 15:38-0500 Diastolic blood pressure 72 mm[Hg] [facility] 06-12-2023 15:38-0500 Heart rate 95 /min [facility] 06-12-2023 15:38-0500 Respiratory rate 18 /min [facility] 06-12-2023 15:38-0500 SaO2% (BldA) [Mass fraction] 99 % [facility] 06-12-2023 15:38-0500 Systolic blood pressure 111 mm[Hg] [facility] 03-04-2023 15:00-0500 Body height 167.64 cm Sandra Keita Other [employer] [facility] [employer] Other 03-04-2023 15:00-0500 Body mass index (BMI) [Ratio] 29.97 kg/m2 Sandra Keita Other [employer] Other 03-04-2023 15:00-0500 Body weight 84.23 kg Sandra Keita Other [employer] Other 03-04-2023 15:00-0500 Diastolic blood pressure 68 mm[Hg] Sandra Keita Other [employer] Other 03-04-2023 15:00-0500 Respiratory rate 18 /min Sandra Keita Other [employer] Other 03-04-2023 15:00-0500 SaO2% (BldA) [Mass fraction] 96 % Sandra Keita Other [employer] Other 03-04-2023 15:00-0500 Systolic blood pressure 98 mm[Hg] Sandra Keita Other [employer] Other 01-07-2023 14:00-0400 Body height 167.64 cm Tondra Mapus Other [employer] Other 01-07-2023 14:00-0400 Body mass index (BMI) [Ratio] 30.03 kg/m2 Tondra Mapus Other [employer] Other 01-07-2023 14:00-0400 Body weight 84.41 kg Tondra Mapus Other [employer] Other 01-07-2023 14:00-0400 Diastolic blood pressure 68 mm[Hg] Tondra Mapus Other [employer] Other 01-07-2023 14:00-0400 Respiratory rate 18 /min Tondra Mapus Other [employer] Other 01-07-2023 14:00-0400 SaO2% (BldA) [Mass fraction] 98 % Tondra Mapus Other [employer] Other 01-07-2023 14:00-0400 Systolic blood pressure 102 mm[Hg] Tondra Mapus Other [employer] Other 01-02-2023 11:00-0400 Body height 167.64 cm Brayden Noble Other [employer] Other 01-02-2023 11:00-0400 Body mass index (BMI) [Ratio] 29.7 kg/m2 Brayden Noble Other [employer] Other 01-02-2023 11:00-0400 Body weight 83.46 kg Brayden Noble Other [employer] Other 01-02-2023 11:00-0400 Diastolic blood pressure 78 mm[Hg] Brayden Noble Other [employer] Other 01-02-2023 11:00-0400 Systolic blood pressure 120 mm[Hg] Brayden Noble Other [employer] Other 11-28-2022 15:00-0400 Body height 167.64 cm Sandra Keita Other [employer] Other 11-28-2022 15:00-0400 Body mass index (BMI) [Ratio] 29.58 kg/m2 Sandra Keita Other [employer] Other 11-28-2022 15:00-0400 Body weight 83.14 kg Sandra Keita Other [employer] Other 11-28-2022 15:00-0400 Diastolic blood pressure 72 mm[Hg] Sandra Keita Other [employer] Other 11-28-2022 15:00-0400 Respiratory rate 20 /min Sandra Keita Other [employer] Other 11-28-2022 15:00-0400 SaO2% (BldA) [Mass fraction] 99 % Sandra Keita Other [employer] Other 11-28-2022 15:00-0400 Systolic blood pressure 115 mm[Hg] Sandra Keita Other [employer] Other 09-27-2022 14:15-0400 Body height 167.64 cm Tondra Mapus Other [employer] Other 09-27-2022 14:15-0400 Body mass index (BMI) [Ratio] 29.53 kg/m2 Tondra Mapus Other [employer] Other 09-27-2022 14:15-0400 Body weight 83.01 kg Tondra Mapus Other [employer] Other 09-27-2022 14:15-0400 Diastolic blood pressure 66 mm[Hg] Tondra Mapus Other [employer] Other 09-27-2022 14:15-0400 Respiratory rate 18 /min Tondra Mapus Other [employer] Other 09-27-2022 14:15-0400 SaO2% (BldA) [Mass fraction] 97 % Tondra Mapus Other [employer] Other 09-27-2022 14:15-0400 Systolic blood pressure 100 mm[Hg] Tondra Mapus Other [employer] Other 08-09-2022 16:15-0400 Body height 167.64 cm Sandrarebecca Keita Other [employer] Other 08-09-2022 16:15-0400 Body mass index (BMI) [Ratio] 29.86 kg/m2 Sandrarebecca Keita Other [employer] Other 08-09-2022 16:15-0400 Body weight 83.92 kg Sandra Debbie Other [employer] Other 08-09-2022 16:15-0400 Diastolic blood pressure 74 mm[Hg] Sandra Debbie Other [employer] Other 08-09-2022 16:15-0400 Respiratory rate 18 /min Sandrarebecca Keita Other [employer] Other 08-09-2022 16:15-0400 SaO2% (BldA) [Mass fraction] 97 % Sandrarebecca Keita Other [facility] Other 08-09-2022 16:15-0400 Systolic blood pressure 118 mm[Hg] Sandra Debbie Other [facility] Other 06-18-2022 15:30-0500 Body height 167.64 cm Tondra Mapus Other [facility] Other 06-18-2022 15:30-0500 Body mass index (BMI) [Ratio] 35.34 kg/m2 Tondra Mapus Other [facility] Other 06-18-2022 15:30-0500 Body weight 99.34 kg Tondra Mapus Other [facility] Other 06-18-2022 15:30-0500 Diastolic blood pressure 72 mm[Hg] Tondra Mapus Other [facility] Other 06-18-2022 15:30-0500 Respiratory rate 18 /min Tondra Mapus Other [facility] Other 06-18-2022 15:30-0500 SaO2% (BldA) [Mass fraction] 97 % Tondra Mapus Other [facility] Other 06-18-2022 15:30-0500 Systolic blood pressure 108 mm[Hg] Tondra Mapus Other [facility] Other 01-09-2022 14:00-0400 Body height 167.64 cm Tondra Mapus Other [facility] Other 01-09-2022 14:00-0400 Body mass index (BMI) [Ratio] 28.73 kg/m2 Tondra Mapus Other [facility] Other 01-09-2022 14:00-0400 Body weight 80.74 kg Tondra Mapus Other [facility] Other 01-09-2022 14:00-0400 Diastolic blood pressure 79 mm[Hg] Tondra Mapus Other [facility] Other 01-09-2022 14:00-0400 Respiratory rate 16 /min Tondra Mapus Other [facility] Other 01-09-2022 14:00-0400 SaO2% (BldA) [Mass fraction] 97 % Tondra Mapus Other [facility] Other 01-09-2022 14:00-0400 Systolic blood pressure 127 mm[Hg] Angelique Russell Other [facility] Other 12-17-2021 08:23-0400 Diastolic blood pressure 63 mm[Hg] DO Tray Randle [facility] 12-17-2021 08:23-0400 Heart rate 82 /min DO Tray [facility] 12-17-2021 08:23-0400 Respiratory rate 18 /min DO Tray Randle [facility] 12-17-2021 08:23-0400 SaO2% (BldA) [Mass fraction] 98 % DO Trayumu Randle [facility] 12-17-2021 08:23-0400 Systolic blood pressure 135 mm[Hg] DO Tray Randle [facility] 12-17-2021 05:29-0400 Body height 170.18 cm DO Tray Randle [facility] 12-17-2021 05:29-0400 Body temperature 97.4 [degF] DO Tray Randle [facility] 12-17-2021 05:29-0400 Body weight 82.55 kg DO Tray Randle [facility] 12-14-2021 06:58-0400 Body height 170.18 cm DO Tray Randle [facility] 12-14-2021 06:58-0400 Body mass index (BMI) [Ratio] 29.2 kg/m2 DO Tray Randle [facility] 12-14-2021 06:58-0400 Body weight 84.8 kg DO Tray Randle [facility] 12-13-2021 11:06-0400 Body temperature 97.7 [degF] DO Tray Randle [facility] 12-13-2021 11:06-0400 Diastolic blood pressure 67 mm[Hg] DO Trayumu Randle [facility] 12-13-2021 11:06-0400 Heart rate 88 /min DO Tray Randle [facility] 12-13-2021 11:06-0400 Respiratory rate 16 /min DO Tray Randle [facility] 12-13-2021 11:06-0400 SaO2% (BldA) [Mass fraction] 93 % DO Tray Randle [facility] 12-13-2021 11:06-0400 Systolic blood pressure 119 mm[Hg] DO [facility] 12-13-2021 08:00-0400 Inhaled oxygen flow rate 3 L/[facility]12[facility] 11:00-0400 Body height 167.64 cm Crispin Looney Other [facility] Other 10-12-2021 11:00-0400 Body mass index (BMI) [Ratio] 29.81 kg/m2 Crispin Looney Other [facility] Other 10-12-2021 11:00-0400 Body weight 83.78 kg Crispin Looney Other [facility] Other 10-12-2021 11:00-0400 Diastolic blood pressure 68 mm[Hg] Crispin Looney Other [facility] Other 10-12-2021 11:00-0400 Respiratory rate 18 /min Crispin Looney Other [facility] Other 10-12-2021 11:00-0400 SaO2% (BldA) [Mass fraction] 97 % Crispin oLoney Other [facility] Other 10-12-2021 11:00-0400 Systolic blood pressure 97 mm[Hg] Crispin Looney Other [facility] Other 07-10-2021 14:30-0400 Body height 167.64 cm Tondra Mapus Other [facility] Other 07-10-2021 14:30-0400 Body mass index (BMI) [Ratio] 30.34 kg/m2 Tondra Mapus Other [facility] Other 07-10-2021 14:30-0400 Body weight 85.28 kg Tondra Mapus Other [facility] Other 07-10-2021 14:30-0400 Diastolic blood pressure 60 mm[Hg] Tondra Mapus Other [facility] Other 07-10-2021 14:30-0400 Respiratory rate 16 /min Tondra Mapus Other [facility] Other 07-10-2021 14:30-0400 SaO2% (BldA) [Mass fraction] 97 % Tondra Mapus Other [facility] Other 07-10-2021 14:30-0400 Systolic blood pressure 89 mm[Hg] Tondra Mapus Other [facility] Other 07-03-2021 16:00-0500 Body height 167.64 cm Gaudenciodaja Katerynaracquel Other [facility] Other 07-03-2021 16:00-0500 Body mass index (BMI) [Ratio] 30.5 kg/m2 Gaudenciodaja Hahn Other [facility] Other 07-03-2021 16:00-0500 Body temperature 95.5 [degF] Ruben Hahn Other [facility] Other 07-03-2021 16:00-0500 Body weight 85.73 kg Ruben Hahn Other [facility] Other 07-03-2021 16:00-0500 Diastolic blood pressure 68 mm[Hg] Ruben Hahn Other [facility] Other 07-03-2021 16:00-0500 SaO2% (BldA) [Mass fraction] 99 % Ruben Hahn Other [facility] Other 07-03-2021 16:00-0500 Systolic blood pressure 94 mm[Hg] Ruben Hahn Other [facility] Other 05-08-2021 14:15-0500 Body height 167.64 cm Crispinjaclyn LeeAayush Other [facility] Other 05-08-2021 14:15-0500 Body mass index (BMI) [Ratio] 30.87 kg/m2 Crispinjaclyn LeeAayush Other [facility] Other 05-08-2021 14:15-0500 Body weight 86.77 kg Crispin Looney Other [facility] Other 05-08-2021 14:15-0500 Diastolic blood pressure 58 mm[Hg] Crispin Leeahan Other [facility] Other 05-08-2021 14:15-0500 Respiratory rate 20 /min Crispinjaclyn LeeAayush Other [facility] Other 05-08-2021 14:15-0500 SaO2% (BldA) [Mass fraction] 98 % Crispin Aayush Other [facility] Other 05-08-2021 14:15-0500 Systolic blood pressure 102 mm[Hg] Crispin Looney Other [facility] Other 04-03-2021 15:00-0500 Body height 167.64 cm Tray Nava Other [facility] Other 04-03-2021 15:00-0500 Body mass index (BMI) [Ratio] 30.99 kg/m2 Tray Nava Other [facility] Other 04-03-2021 15:00-0500 Body temperature 98.3 [degF] Tray Nava Other [facility] Other 04-03-2021 15:00-0500 Body weight 87.09 kg Tray Nava Other [facility] Other 04-03-2021 15:00-0500 Diastolic blood pressure 68 mm[Hg] Tray Nava Other [facility] Other 04-03-2021 15:00-0500 SaO2% (BldA) [Mass fraction] 93 % Tray Nava Other [facility] Other 04-03-2021 15:00-0500 Systolic blood pressure 110 mm[Hg] Tray Nava Other [facility] Other 03-27-2021 15:00-0500 Body height 167.64 cm Angelique Russell Other [facility] Other 03-27-2021 15:00-0500 Body mass index (BMI) [Ratio] 30.99 kg/m2 Tondra Mapus Other [facility] Other 03-27-2021 15:00-0500 Body weight 87.09 kg Tondra Mapus Other [facility] Other 03-27-2021 15:00-0500 Diastolic blood pressure 75 mm[Hg] Tondra Mapus Other [facility] Other 03-27-2021 15:00-0500 Respiratory rate 20 /min Tondra Mapus Other [facility] Other 03-27-2021 15:00-0500 SaO2% (BldA) [Mass fraction] 97 % Tondra Mapus Other [facility] Other 03-27-2021 15:00-0500 Systolic blood pressure 124 mm[Hg] Tondra Mapus Other [facility] Other 02-27-2021 16:00-0400 Body height 167.64 cm Tray Nava Other [facility] Other 02-27-2021 16:00-0400 Body mass index (BMI) [Ratio] 30.66 kg/m2 Tray Nava Other [facility] Other 02-27-2021 16:00-0400 Body weight 86.18 kg Tray Nava Other [facility] Other 02-27-2021 16:00-0400 Diastolic blood pressure 76 mm[Hg] Tray Nava Other [facility] Other 02-27-2021 16:00-0400 Systolic blood pressure 123 mm[Hg] Tray Nava Other [facility] Other 08-27-2017 12:010400 Body height 170.18 cm DO Jonas Yoder Work Phone: [facility] Encounters Encounter Date Encounter Type Care Provider Facility Start: 06-26-2024 End: 06-29-2024 External Result Encounter Nataliya Jane NURSE UNIT MANAGER Other Phone: [facility] External Department Unsolicited Start: 06-26-2024 End: 06-29-2024 External Result Encounter Nataliya Jane NURSE UNIT MANAGER Other Phone: [facility] External Department Unsolicited Start: 06-26-2024 Registered Recurring Sandra terrazas DO Work Phone: [facility] Work Phone: Start: 06-26-2024 End: 06-26-2024 Patient encounter procedure Sandra Keita DO Work Phone: [facility] [place] Work Phone: Start: 06-26-2024 End: 06-26-2024 ambulatory Sandra Keita DO Work Phone: [facility] Work Phone: Start: 06-26-2024 End: 06-26-2024 Office outpatient visit 25 minutes Roland Faust MD Work Phone: [facility] Comment on above: Typical atrial flutt er (Multi) (Primary Dx); Nonischemic cardiomyopathy (Multi); Hypercholesteremia; Hypertension, unspecified type; BMI 32.0-32.9,adult; Current smoker Start: 06-26-2024 End: 06-26-2024 ambulatory [facility] Start: 05-25-2024 End: 05-25-2024 Patient encounter procedure Sandra Keita DO Work Phone: [facility] [place] Work Phone: Start: 05-25-2024 End: 05-25-2024 ambulatory Sandra A Keita DO Work Phone: [facility] Work Phone: Start: 05-19-2024 End: 05-19-2024 Telephone encounter Oz Kincaid MD Work Phone: [facility] Start: 05-07-2024 End: 05-07-2024 ambulatory Sandra A Keita DO Work Phone: [facility] Work Phone: Start: 05-07-2024 End: 05-07-2024 Patient encounter procedure Sandra Keita DO Work Phone: [facility] [place] Work Phone: Start: 04-28-2024 End: 04-30-2024 Evaluation and management of inpatient Sandra Keita DO Work Phone: [facility] [place] [facility] Work Phone: Start: 04-28-2024 End: 04-28-2024 ambulatory Sandra A Keita DO Work Phone: [facility] Work Phone: Start: 04-28-2024 End: 04-28-2024 Patient encounter procedure Sandra Keita DO Work Phone: [facility] Work Phone: Start: 04-28-2024 End: 04-28-2024 Patient encounter procedure Sandra Keita DO Work Phone: [facility] Work Phone: Start: 04-27-2024 End: 04-27-2024 Emergency department patient visit Sandra Keita DO Work Phone: [facility] Work Phone: Start: 04-14-2024 End: 04-14-2024 External Result Encounter Nataliya Jane NURSE UNIT MANAGER Work Phone: [facility] External Department Unsolicited Start: 04-14-2024 End: 04-14-2024 External Result Encounter Nataliya Jane NURSE UNIT MANAGER Work Phone: [facility] External Department Unsolicited Start: 04-14-2024 End: 04-14-2024 Patient encounter procedure Sandra Keita DO Work Phone[facility] Work Phone: Start: 04-08-2024 End: 04-08-2024 Patient encounter procedure Karl Fritz DPM Work Phone: [facility] Comment on above: Ulcer of right foot, limited to breakdown of skin (CMS/HCC) (Primary Dx); Ulcer of right foot with fat layer exposed (CMS/HCC); 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) Start: 04-08-2024 End: 04-08-2024 ambulatory KARL FRITZ Not Available Start: 04-07-2024 End: 04-07-2024 Bamboo flowsheet Oz Kincaid MD Work Phone: [facility] Start: 04-07-2024 End: 04-07-2024 Bamboo flowsheet Oz Kincaid MD Work Phone: [facility] Start: 04-07-2024 End: 04-07-2024 Office outpatient visit 15 minutes Oz Kincaid MD Work Phone: [facility] Comment on above: Cognitive decline (P rimary Dx); B12 deficiency; Neurogenic pain; Carpal tunnel syndrome, bilateral; Cervical paraspinal muscle spasm; Guyon syndrome, unspecified laterality; Granulocytosis Start: 04-07-2024 End: 04-07-2024 ambulatory OZ KINCAID Not Available Start: 03-25-2024 End: 03-25-2024 ambulatory [facility] Start: 03-25-2024 End: 03-25-2024 Office outpatient visit 10 minutes Roland Faust MD Work Phone: [facility] Comment on above: Hypertension, unspec ified type; Typical atrial flutter (Multi) Start: 02-25-2024 End: 02-25-2024 Office outpatient visit 25 minutes zO Kincaid MD Work Phone: [facility] Comment on above: Cognitive decline (P rimary Dx); Neurogenic pain; Carpal tunnel syndrome, bilateral; B12 deficiency Start: 02-25-2024 End: 02-25-2024 Bamboo flowsheet Oz Kincaid MD Work Phone: [facility] Start: 02-25-2024 End: 02-25-2024 Bamboo flowsheet Oz Kincaid MD Work Phone: [facility] Start: 02-25-2024 End: 02-25-2024 ambulatory OZ KINCAID Not Available Start: 02-14-2024 End: 02-14-2024 ambulatory Sandra Keita Facility:[facility] Start: 02-14-2024 End: 02-14-2024 Departed Referred Sandra Keita DO Work Phone: [facility] Work Phone: Start: 02-10-2024 End: 02-10-2024 Bamboo flowsheet Karl Fritz DPM Work Phone: [facility] Start: 02-10-2024 End: 02-10-2024 Bamboo flowsheet Karl Fritz DPM Work Phone: [facility] Start: 02-10-2024 End: 02-10-2024 Office outpatient visit 15 minutes Karl Fritz DPM Work Phone: [facility] Comment on above: Ulcer of right foot, limited to breakdown of skin (CMS/HCC) (Primary Dx); Blister of right foot, subsequent encounter; 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); Ulcer of right foot with fat layer exposed (CMS/HCC) Start: 02-10-2024 End: 02-10-2024 ambulatory KARL FRITZ Not Available Start: 02-03-2024 End: 02-03-2024 ambulatory DO Sandra Keita Work Phone: [facility] Work Phone: Start: 02-03-2024 End: 02-03-2024 Patient encounter procedure DO Sandra Keita Work Phone: [facility] [place] Work Phone: Start: 01-27-2024 End: 01-27-2024 Bamboo flowsheet Karl Fritz DPM Work Phone: [facility] Start: 01-27-2024 End: 01-27-2024 Bamboo flowsheet Karl Fritz DPM Work Phone: [facility] Start: 01-27-2024 End: 01-27-2024 Office outpatient visit 15 minutes Karl Fritz DPM Work Phone: [facility] Comment on above: Ulcer of right foot, limited to breakdown of skin (CMS/HCC) (Primary Dx); Blister of right foot, subsequent encounter; 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) Start: 01-27-2024 End: 01-27-2024 ambulatory KARL FRITZ Not Available Start: 01-21-2024 End: 01-21-2024 Bamboo flowsheet Karl Fritz DPM Work Phone: [facility] Start: 01-21-2024 End: 01-21-2024 Bamboo flowsheet Karl Fritz DPM Work Phone: [facility] Start: 01-21-2024 End: 01-21-2024 Office outpatient visit 15 minutes Karl Fritz DPM Work Phone: [facility] Comment on above: Ulcer of right foot, limited to breakdown of skin (CMS/HCC) (Primary Dx); Blister of right foot, initial encounter; 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 ([facility]/HCC) Start: 01-21-2024 End: 01-21-2024 ambulatory KARL FRITZ Not Available Start: 01-15-2024 End: 01-15-2024 ambulatory DO Sandra Rebecca Keita Work Phone: [facility] Work Phone: Start: 01-15-2024 End: 01-15-2024 Patient encounter procedure DO Sandra Keita Work Phone: [facility] Neuro[facility] Work Phone: Start: 01-08-2024 End: 01-10-2024 Telephone encounter Oz Kincaid MD Work Phone: [facility] Start: 01-07-2024 End: 01-07-2024 Bamboo flowsheet Karl Fritz DPM Work Phone: [facility] Start: 01-07-2024 End: 01-07-2024 Bamboo flowsheet Karl Fritz DPM Work Phone: [facility] Start: 01-07-2024 End: 01-07-2024 Office outpatient visit 25 minutes Oz Kincaid MD Work Phone: [facility] Comment on above: Lumbosacral radiculo mary jane at S1 (Primary Dx); Neurogenic pain; Cervical paraspinal muscle spasm; Lumbar paraspinal muscle spasm; Carpal tunnel syndrome, bilateral; B12 deficiency Start: 01-07-2024 End: 01-07-2024 Departed Referred DO Sandra Keita Work Phone: [facility] [place] Work Phone: Start: 01-07-2024 End: 01-07-2024 Office outpatient visit 25 minutes Karl Fritz DPM Work Phone: [facility] Comment on above: Ulcer of right foot, limited to breakdown of skin (CMS/HCC) (Primary Dx); Cellulitis of right foot Start: 01-07-2024 End: 01-07-2024 ambulatory DO Sandra A Debbie Work Phone: [facility] Work Phone: Start: 01-06-2024 End: 01-06-2024 Patient encounter procedure DO Sandra Keita Work Phone: [facility] [place] Work Phone: Start: 01-06-2024 End: 01-06-2024 ambulatory DO Sandra A Keita Work Phone: [facility] Work Phone: Start: 01-03-2024 End: 01-03-2024 ambulatory OZ KINCAID [facility] Comment on above: Carpal tunnel syndro me, bilateral (Primary Dx) Start: 01-03-2024 End: 01-03-2024 Bamboo flowsheet Oz Kincaid MD Work Phone: [facility] Start: 01-03-2024 End: 01-03-2024 Bamboo flowsheet Oz Kincaid MD Work Phone: [facility] Start: 12-17-2023 End: 12-17-2023 Patient encounter procedure DO Sandra Keita Work Phone: [facility] [address] Work Phone: Start: 12-17-2023 End: 12-17-2023 ambulatory DO Sandra A Debbie Work Phone: [facility] Work Phone: Start: 12-16-2023 End: 12-16-2023 ambulatory [facility] Start: 12-16-2023 End: 12-16-2023 Office outpatient visit 25 minutes Roland Faust MD Work Phone: [facility] Comment on above: High risk medication use (Primary Dx); Typical atrial flutter (Multi); Nonischemic cardiomyopathy (Multi); Hypercholesteremia; BMI 28.0-28.9,adult; BMI 30.0-30.9,adult; Current smoker Start: 12-13-2023 End: 12-13-2023 ambulatory OZ D BEJ Not Available Start: 12-12-2023 End: 12-12-2023 ambulatory OZ D BEJ Not Available Start: 12-02-2023 End: 12-02-2023 Patient encounter procedure DO Sandra Keita Work Phone: [facility] [place] Work Phone: Start: 12-02-2023 End: 12-02-2023 ambulatory DO Sandra A Keita Work Phone: [facility] Work Phone: Start: 11-29-2023 End: 11-29-2023 ambulatory OZ Lillian BEJ Not Available Start: 11-26-2023 End: 11-26-2023 Patient encounter procedure DO Sandra Keita Work Phone: [facility] [place] Work Phone: Start: 11-26-2023 End: 11-26-2023 ambulatory DO Sandra A Keita Work Phone: [facility] Work Phone: Start: 11-26-2023 End: 01-07-2024 External Result Encounter Oz Kincaid MD Work Phone: [facility] External Department Unsolicited Start: 11-26-2023 End: 01-07-2024 External Result Encounter Oz Kincaid MD Work Phone: [facility] External Department Unsolicited Start: 11-18-2023 End: 11-18-2023 ambulatory DO Sandra A Keita Work Phone: [facility] Work Phone: Start: 11-18-2023 End: 11-18-2023 Patient encounter procedure DO Sandra Debbie Work Phone: [facility] Family [facility] [place] Work Phone: Start: 11-16-2023 Non-patient / Non-visit DO Millie jacob Debbie Work Phone: [facility] Pulmonary Disease Work Phone: Start: 11-15-2023 End: 11-15-2023 Patient encounter procedure DO Sandra Debbie Work Phone: [facility]Res[facility] Work Phone: Start: 11-15-2023 End: 11-15-2023 ambulatory DO Sandra A Debbie Work Phone: [facility] Work Phone: Start: 11-14-2023 End: 11-14-2023 ambulatory DO Sandra A Debbie Work Phone: [facility] Work Phone: Start: 11-14-2023 End: 11-14-2023 Patient encounter procedure DO Sandra Debbie Work Phone: [facility] Work Phone: Start: 11-13-2023 End: 11-13-2023 Office outpatient visit 25 minutes Jonas Ch MD Work Phone: [facility] Comment on above: Nonischemic cardiomy opathy (Multi) (Primary Dx); Typical atrial flutter (Multi); Hypercholesteremia; Primary hypertension; Current smoker; BMI 28.0-28.9,adult; High risk medication use Start: 11-13-2023 End: 11-13-2023 ambulatory JONAS CH [facility] Ambulatory Start: 11-13-2023 Non-patient / Non-visit DO Millie jacob Debbie Work Phone: [facility] [place] Work Phone: Start: 11-10-2023 End: 11-12-2023 ambulatory Sandra A Keita Facility:[facility] Start: 11-10-2023 End: 11-12-2023 Evaluation and management of inpatient DO Sandra Keita Work Phone: [facility] [place] [facility] Work Phone: Start: 11-06-2023 End: 11-06-2023 ambulatory JALYN ARMENDARIZ Not Available Start: 11-05-2023 End: 11-05-2023 Admission to same day surgery center DO Sandra Keita Work Phone: [facility]Electrodiagnostics Work Phone: Start: 11-05-2023 End: 11-05-2023 ambulatory DO Sandra Keita Work Phone: [facility] Work Phone: Start: 10-30-2023 End: 01-07-2024 External Result Encounter Oz Kincaid MD Work Phone: [facility] External Department Unsolicited Start: 10-30-2023 End: 01-07-2024 External Result Encounter Oz Kincaid MD Work Phone: [facility] External Department Unsolicited Start: 10-30-2023 End: 10-30-2023 Patient encounter procedure DO Sandra Keita Work Phone: [facility] Work Phone: Start: 10-30-2023 End: 10-30-2023 ambulatory DO Sandra Keita Work Phone: [facility] Work Phone: Start: 10-29-2023 End: 10-29-2023 ambulatory OZ KINCAID Not Available Start: 10-07-2023 End: 10-07-2023 Office outpatient visit 25 minutes Jonas Ch MD Work Phone: [facility] Comment on above: Typical atrial flutt er (Multi); Nonischemic cardiomyopathy (Multi); Hypertension, unspecified type; Hypercholesteremia; Smoker; Type 2 diabetes mellitus with other specified complication, unspecified whether intermediate manager insulin use (Multi); BMI 28.0-28.9,adult Start: 10-07-2023 End: 10-07-2023 ambulatory JONAS Sorensen [facility] Ambulatory Start: 09-25-2023 End: 09-25-2023 ambulatory SANDRA Fernandez [facility] Ambulatory Start: 09-17-2023 End: 09-17-2023 ambulatory DO Sandra A Debbie Work Phone: [facility] Work Phone: Start: 09-17-2023 End: 09-17-2023 Patient encounter procedure DO Sandra Debbie Work Phone: [facility] Family [facility] Work Phone: Start: 09-16-2023 Non-patient / Non-visit DO Millie jacob Keita Work Phone: [facility] Family [facility] Work Phone: Start: 09-14-2023 End: 09-14-2023 Non-patient / Non-visit DO Sandrarebecca Keita Work Phone: [facility] Work Phone: Start: 09-13-2023 End: 09-14-2023 Evaluation and management of inpatient DO Sandra Debbie Work Phone: [facility] [place] [facility] Work Phone: Start: 09-12-2023 End: 09-12-2023 Patient encounter procedure DO Sandra Debbie Work Phone: [facility] Work Phone: Start: 09-09-2023 Non-patient / Non-visit DO Millie jacob Debbie Work Phone: [facility] Work Phone: Start: 09-05-2023 End: 09-05-2023 Patient encounter procedure DO Sandra Debbie Work Phone: [facility] [place] Work Phone: Start: 09-05-2023 End: 09-05-2023 ambulatory DO Sandra A Debbie Work Phone: [facility] Work Phone: Start: 07-25-2023 End: 07-25-2023 Patient encounter procedure DO Sandra Debbie Work Phone: [facility] [address] Work Phone: Start: 07-25-2023 End: 07-25-2023 ambulatory DO Sandra A Debbei Work Phone: [facility] Work Phone: Start: 07-17-2023 End: 07-17-2023 ambulatory [facility] [facility] Work Phone: Start: 07-17-2023 End: 07-17-2023 Patient encounter procedure [facility] V[facility] Work Phone: Start: 06-19-2023 End: 06-19-2023 ambulatory [facility] Work Phone: Start: 06-19-2023 End: 06-19-2023 Patient encounter procedure [facility] Family [facility] [place] Work Phone: Start: 06-12-2023 End: 06-12-2023 ambulatory [facility] Work Phone: Start: 06-12-2023 End: 06-12-2023 Patient encounter procedure [facility] Work Phone: Start: 06-10-2023 End: 06-10-2023 ambulatory Tondra Mapus Other [employer] Other Start: 06-10-2023 Telephone encounter Tondra Mapus [facility] Start: 05-21-2023 End: 05-21-2023 ambulatory Sandrarebecca Keita Other [employer] Other Start: 05-21-2023 Telephone encounter Sandrajacob Keita [facility] Start: 04-30-2023 End: 04-30-2023 ambulatory Angelique Russell Other [employer] Other Start: 04-30-2023 Telephone encounter Angelique Russell [facility] Start: 04-11-2023 End: 04-11-2023 ambulatory Sandrarebecca Keita Other [employer] Other Start: 04-11-2023 Telephone encounter Sandra Keita [facility] Start: 04-08-2023 End: 04-08-2023 ambulatory Sandra Keita Other [employer] Other Start: 04-08-2023 Telephone encounter Sandra Keita [facility] Start: 03-05-2023 End: 03-05-2023 ambulatory DO Jonas Yoder Work Phone: [facility] Work Phone: Start: 03-05-2023 End: 03-05-2023 Patient encounter procedure DO Jonas Yoder Work Phone: [facility] Work Phone: Start: 03-04-2023 End: 03-04-2023 ambulatory Sandra Keita Other [employer] Other Start: 03-04-2023 Office outpatient vi sit 25 minutes Sandra Keita [facility] Start: 01-28-2023 End: 01-28-2023 ambulatory Sandra Keita Other [employer] Other Start: 01-28-2023 Telephone encounter Sandra MORRISON [facility] [place] Start: 01-07-2023 Registered Recurring DO Beab Yoder Work Phone: [facility] Work Phone: Start: 01-07-2023 (DM) Diabetes Tondra Mapus [facility] Start: 01-07-2023 End: 01-07-2023 ambulatory Tondra Mapus Other [employer] Other Start: 01-02-2023 End: 01-02-2023 ambulatory Brayden Noble Other [employer] Other Start: 01-02-2023 Office outpatient vi sit 15 minutes Brayden Noble [facility] G[facility] Start: 12-28-2022 End: 12-28-2022 ambulatory Sandra Keita Other [employer] Other Start: 12-28-2022 Telephone encounter Sandra Keita [facility] [place] Start: 12-18-2022 End: 12-18-2022 ambulatory Reyna Schwerer Other [employer] Other Start: 12-18-2022 Telephone encounter Reyna Schwerer [facility] [place] Start: 12-10-2022 End: 12-10-2022 ambulatory Tondra Mapus Other [employer] Other Start: 12-10-2022 Telephone encounter Tondra Mapus [facility] Start: 11-28-2022 End: 11-28-2022 ambulatory Sandra Keita Other [employer] Other Start: 11-28-2022 Patient encounter procedure Sandrajacob Keita [facility] [place] Start: 11-27-2022 End: 11-27-2022 ambulatory Sandrajacob Keita Other [employer] Other Start: 11-27-2022 Telephone encounter Sandrajacob Keita [facility] [place] Start: 11-06-2022 End: 11-06-2022 ambulatory Sandra Keita Other [employer] Other Start: 11-06-2022 Telephone encounter Sandra Keiat [facility] [place] Start: 09-27-2022 (DM) Diabetes Tondra Mapus [facility] Start: 09-27-2022 End: 09-27-2022 ambulatory Tondra Leonardous Other [employer] Other Start: 09-10-2022 End: 09-10-2022 ambulatory Sandra Keita Other [employer] Other Start: 09-10-2022 Telephone encounter Sandra Keita [facility] [place] Start: 09-05-2022 Telephone encounter Sandra Keita [facility] [place] Start: 09-05-2022 End: 09-05-2022 ambulatory DO Sandra Rebecca Keita Work Phone: [facility] Work Phone: Start: 09-05-2022 End: 09-05-2022 Patient encounter procedure DO Sandra Debbie Work Phone: [facility] Work Phone: Start: 08-22-2022 Telephone encounter Sandra Keita [facility] [place] Start: 08-22-2022 End: 08-22-2022 ambulatory DO Sandra A Debbie Work Phone: [facility] Work Phone: Start: 08-22-2022 End: 08-22-2022 Patient encounter procedure DO Sandra Keita Work Phone: [facility] [address] Work Phone: Start: 08-09-2022 End: 08-09-2022 ambulatory Sandra Keita Other [employer] Other Start: 08-09-2022 Office outpatient vi sit 15 minutes Sandrajacob Keita [facility] [place] Start: 08-06-2022 End: 08-06-2022 ambulatory Sandra Keita Other [employer] Other Start: 08-06-2022 Telephone encounter Sandra Keita [facility] [place] Start: 07-10-2022 End: 07-10-2022 ambulatory Sandra Keita Other [employer] Other Start: 07-10-2022 Telephone encounter Sandra MORRISON [facility] [place] Start: 07-04-2022 End: 07-04-2022 ambulatory Tolu Salinas Other [employer] Other Start: 07-04-2022 Telephone encounter Tolu Salinas [facility] [place] Start: 06-19-2022 End: 06-19-2022 ambulatory Tondra Mapus Other [employer] Other Start: 06-19-2022 Telephone encounter Tondra Mapus [facility] Start: 06-18-2022 (DM) Diabetes Tondra Mapus [facility] Start: 06-18-2022 End: 06-18-2022 ambulatory Tondra Mapus Other [employer] Other Start: 06-14-2022 End: 06-14-2022 ambulatory Tondra Mapus Other [facility] Other Start: 06-14-2022 Telephone encounter Tondra Yvonne [facility] Start: 06-08-2022 End: 06-08-2022 ambulatory Tondra Mapus Other [employer] Other Start: 06-08-2022 Telephone encounter Tondra Yvonne [facility] Start: 06-04-2022 End: 06-04-2022 ambulatory Sandra Keita Other [employer] Other Start: 06-04-2022 Telephone encounter Sandrarebecca Keita [facility] [place] Start: 05-30-2022 End: 05-30-2022 ambulatory Sandra Keita Other [employer] Other Start: 05-30-2022 Telephone encounter Sandrarebecca Keita [facility] [place] Start: 05-24-2022 End: 05-24-2022 ambulatory Sandra Keita Other [employer] Other Start: 05-24-2022 Telephone encounter Sandrarebecca Keita [facility] [place] Start: 04-03-2022 End: 04-03-2022 ambulatory Sandra Keita Other [employer] Other Start: 04-03-2022 Telephone encounter Sandrarebecca Keita [facility] [place] Start: 02-14-2022 End: 02-14-2022 ambulatory Sandra Keita Other [facility] Other Start: 02-14-2022 Telephone encounter Sandra Keita [facility] [place] Start: 01-09-2022 (DM) Diabetes Tondra Leonardous [facility] Start: 01-09-2022 End: 01-09-2022 ambulatory Tondra Mapus Other [employer] Other Start: 12-21-2021 ambulatory Teresa Mindy Scruggsmitzi Facility:[facility] Start: 12-18-2021 ambulatory Francesca A Tom Faci lity:ENRIQUE Zarate Start: 12-17-2021 End: 12-17-2021 Emergency department patient visit DO Tray Randle [facility] Start: 12-13-2021 ambulatory Goyoshwethamitzi Tom Facili ty:ENRIQUE Ness Start: 12-12-2021 End: 12-13-2021 ambulatory ARLEEN ALVESUJA Facility:[id number] Start: 12-11-2021 End: 12-12-2021 ambulatory ARLEEN ALVESUJA Facility:[id number] Start: 12-09-2021 End: 12-13-2021 Evaluation and management of inpatient DO Tray Randle [facility] [place] [facility] Start: 10-12-2021 End: 10-12-2021 ambulatory Crispin Looney Other [employer] Other Start: 10-12-2021 Patient encounter procedure Crispin Looney [facility] [place] Start: 10-12-2021 Telephone encounter Crispin Mejias [facility] [place] Start: 09-13-2021 End: 09-13-2021 ambulatory Crispin Looney Other [employer] Other Start: 09-13-2021 Telephone encounter Crispin Mejias [facility] [place] Start: 08-28-2021 End: 08-28-2021 ambulatory Tondra Mapus Other [employer] Other Start: 08-28-2021 Telephone encounter Tondra Mapus [facility] Start: 07-10-2021 (DM) Diabetes Tondra Mapus [facility] Start: 07-10-2021 End: 07-10-2021 ambulatory Tondra Mapus Other [employer] Other Start: 07-03-2021 End: 07-03-2021 ambulatory Ruben Hahn Other [employer] Other Start: 07-03-2021 Office outpatient ne w 30 minutes Ruben Hahn [facility] Start: 06-28-2021 End: 06-28-2021 ambulatory Crispin Looney Other [employer] Other Start: 06-28-2021 Telephone encounter Crispin Mejias [facility] [place] Start: 05-25-2021 End: 05-25-2021 ambulatory Crispin Aayush Other [employer] Other Start: 05-25-2021 Telephone encounter Crispin Looney [facility] [place] Start: 05-08-2021 End: 05-08-2021 ambulatory Crispin Aayush Other [employer] Other Start: 05-08-2021 Office outpatient ne w 45 minutes Crispin Looney [facility] [place] Start: 04-11-2021 End: 04-11-2021 ambulatory Tondra Mapus Other [employer] Other Start: 04-11-2021 Telephone encounter Tondra Mapus [facility] Start: 04-03-2021 End: 04-03-2021 ambulatory Tray Nava Other [employer] Other Start: 04-03-2021 Office outpatient vi sit 15 minutes Tray Nava [facility] V[facility] Start: 03-27-2021 (DM) Diabetes Tondra Mapus [facility] Start: 03-27-2021 End: 03-27-2021 ambulatory Tondra Mapus Other [employer] Other Start: 02-27-2021 End: 02-27-2021 ambulatory Tray Nava Other [employer] Other Start: 02-27-2021 Office outpatient vi sit 15 minutes Tray Nava [facility] Start: 05-16-2017 End: 05-16-2017 Ambulatory MATTHEW VOSS Facility:UNKNOWN Start: 01-25-2017 End: 01-26-2017 Ambulatory ELOISA PRETTY Facility:[id number] Procedures Date Procedure Procedure Detail Performing Clinician Start: 06-26-2024 Complete blood count with white cell differential, automated Nataliya aJne NURSE UNIT MANAGER Other Phone: Start: 06-26-2024 Ecg routine ecg w/le ast 12 lds w/i&r Roland Faust MD Work Phone: Start: 05-25-2024 MRI of head Sandra Jaiden ns DO Work Phone: Start: 04-29-2024 Urine culture [...] with white cell differential, automated Nataliya Jane NURSE UNIT MANAGER Work Phone: Start: 04-14-2024 Comprehensive metabo lic panel Nataliya Jane NURSE UNIT MANAGER Work Phone: Start: 04-14-2024 PATHOLOGIST SLIDE RE VIEW ([facility]) Nataliya Jane NURSE UNIT MANAGER Work Phone: Start: 03-25-2024 Ecg routine ecg w/le ast 12 lds w/i&r Roland Faust MD Work Phone: Start: 01-07-2024 Aerobic microbial culture DO Sandra Keita Work Phone: Start: 01-06-2024 Duplex scan of lower limb veins DO Sandra eKita Work Phone: Start: 12-17-2023 MR lumbar spine wo con DO Sandra Keita Work Phone: Start: 12-17-2023 XR pre/post mri xray DO Sandra Keita Work Phone: Start: 12-16-2023 Ecg routine ecg w/le ast 12 lds w/i&r Roland Faust MD Work Phone: Start: 11-26-2023 ANCA PROFILE (ANCA+MPO+PR3) Oz Kincaid MD Work Phone: Start: 11-26-2023 ANTI-CENTROMERE B ANTIBODIES Oz Kincaid MD Work Phone: Start: 11-26-2023 ANTI-DSDNA(DBL)AB Oz Kincaid MD Work Phone: Start: 11-26-2023 ANTI-BASE REMOVER Oz Kincaid MD Work Phone: Start: 11-26-2023 Antinuclear antibodies beatrice Oz Kincaid MD Work Phone: Start: 11-26-2023 ANTIRIBOSOMAL P ANTIBODIES Oz Kincaid MD Work Phone: Start: 11-26-2023 HISTONE ANTIBODIES Oz Kincaid MD Work Phone: Start: 11-26-2023 Immunoassay analyte qual/semiqual multiple step Oz Kincaid MD Work Phone: Start: 11-26-2023 SUSHMA-1 ANTIBODY Oz ngo MD Work Phone: Start: 11-26-2023 LACTATE AND PYRUVATE Ma rk D Bej MD Work Phone: Start: 11-26-2023 SCLERODERMA 70 [...] and pe lvis without contrast DO Tray Morrisarthy Start: 06-10-2020 Mammography Jonas Gilbert MD Work Phone: Start: 12-17-2018 Antibody screen Comment on above: Performed By: #### T [id number] #### [place] [address] Blood culture for ba cteria, including anaerobic screen DO Tray Randle SARS Antigen (LFIA) DO Sunni Randle Urine culture DO Tray yates Urine culture DO Tray yates Plan of Treatment Date Care Activity Detail Author Start: 12-30-2024 End: 12-30-2024 Patient encounter procedure 12/30/2024 1:40 PM EDT Office Visit [facility] [address] [facility] [address] [place] [address] Roland Faust MD [address] [facility] [address] [place] [address] [facility] Start: 10-29-2024 Thyroid stimulating hormone measurement TSH Level [facility] Start: 10-06-2024 End: 10-06-2024 Patient encounter procedure 10/06/2024 1:30 PM EDT Office Visit [facility] [address] [place] [address] Dayana Dodge, NURSE UNIT MANAGER [address] [place] [phone] [facility] Start: 06-26-2024 [facility] Start: 05-26-2024 End: 05-26-2024 Patient encounter procedure 05/26/2024 2:40 PM EST Office Visit [facility] [address] [facility] [address] [place] [phone] Roland Faust MD [address] [facility] [address] [place] [address] [facility] Start: 05-07-2024 End: 05-07-2024 Patient encounter procedure 05/07/2024 2:15 PM EST Office Visit [facility] [address] [place] [phone] Karl Fritz DPM [address] [place] [address] [facility] Start: 04-30-2024 [facility] Start: 04-29-2024 End: 04-29-2024 Urine culture [facility] Start: 04-29-2024 Referral to neurologist [facility] Start: 04-29-2024 [facility] Start: 04-28-2024 Hospital admission [facility] Start: 04-28-2024 [facility] Start: 04-07-2024 End: 04-07-2024 Patient encounter procedure 04/07/2024 3:30 PM EST Office Visit [facility] [address] [place] [phone] Karl Fritz DPM [address] [place] [address] [facility] Start: 04-07-2024 End: 04-07-2024 Patient encounter procedure [facility] Vel[facility]quez Comment on above: Arrived Start: 03-27-2024 End: 03-27-2024 Patient encounter procedure 03/27/2024 10:10 AM EST Office Visit [address] [place] [phone] Roland Faust MD [address] [facility] [place] [address] [facility] Start: 03-24-2024 End: 03-24-2024 Patient encounter procedure 03/24/2024 1:30 PM EST Office Visit [facility] [address] [place] [phone] Karl Fritz, DPM [address] [place] [address] [facility] Start: 03-10-2024 End: 03-10-2024 Patient encounter procedure 03/10/2024 1:30 PM EST Office Visit [facility] [address] [place] [phone] Karl Fritz, DPM [address] [place] [address] [facility] Start: 02-25-2024 End: 02-25-2024 Patient encounter procedure [facility] Comment on above: Arrived Start: 02-10-2024 End: 02-10-2024 Patient encounter procedure [facility] Comment on above: Arrived Start: 01-28-2024 End: 01-28-2024 Patient encounter procedure 01/28/2024 1:30 PM EDT Office Visit [facility] [address] [place] [phone] Oz Kincaid MD [address] [facility] [address] [address] [facility] Start: 01-27-2024 End: 01-27-2024 Patient encounter procedure [facility] Comment on above: Arrived Start: 01-21-2024 End: 01-21-2024 Patient encounter procedure 01/21/2024 11:00 AM EDT [facility] [address] [place] [address] Karl Fritz DPM [address] [place] [address] Arrived [facility] Comment on above: Arrived Start: 01-07-2024 Superficial Wound Culture Superficial Wound Culture [facility] Start: 01-07-2024 End: 01-06-2025 SUPERFICIAL WOUND CULTURE ([facility] SUPERFICIAL WOUND CULTURE ([facility]) Microbiology Routine Ulcer of right foot, limited to breakdown of skin (CMS/HCC) Cellulitis of right foot Expected: 01/07/2024 (Approximate), Expires: 01/06/2025 [facility] Work Phone: Comment on above: Expected: 01/07/2024 (Approximate), Expi res: 01/06/2025 Start: 01-07-2024 End: 01-07-2024 Patient encounter procedure 01/07/2024 1:15 PM EDT Office Visit [facility] [address] [place] [phone] Oz Kincaid MD [address] [facility] [place] [id number] [facility] Start: 01-07-2024 End: 01-07-2024 Patient encounter procedure 01/07/2024 9:45 AM EDT Office Visit [facility] [address] [place] [phone] Karl Fritz DPM [address] [place] [address] Arrived [facility] Comment on above: Arrived Start: 01-06-2024 Duplex scan of lower limb veins US venous duplex LE BI [facility] Start: 01-06-2024 US Lower extremity vein - bilateral [facility] Start: 12-29-2023 COVID-19 Vaccine ( season) COVID-19 Vaccine ( season) [facility] Start: 12-29-2023 Influenza vaccination [facility] Start: 12-02-2023 Blood zinc measurement [facility] Start: 12-02-2023 End: 12-02-2023 [facility] Start: 11-26-2023 Antibody to Scl-70 measurement [facility] Start: 11-26-2023 BASE REMOVER antibody measurement [facility] Start: 11-26-2023 [facility] Start: 11-13-2023 End: 11-12-2024 Aspartate aminotransferase [Enzymatic activity/volume] in Serum or Plasma by With P-5'-P Aspartate Aminotransferase Lab Routine High risk medication use Expected: 11/13/2023 (Approximate), Expires: 11/12/2024 [facility] Service [facility] Work Phone: Comment on above: Expected: 11/13/2023 (Approximate), Expi res: 11/12/2024 Start: 11-13-2023 End: 11-12-2024 Basic metabolic 2000 panel - Serum or Plasma Basic Metabolic Panel Lab Routine High risk medication use Expected: 11/13/2023 (Approximate), Expires: 11/12/2024 [facility] Work Phone: Comment on above: Expected: 11/13/2023 (Approximate), Expi res: 11/12/2024 Start: 11-13-2023 End: 11-12-2024 Complete Pulmonary Function Test (Spirometry/DLCO/Lung Volumes) Complete Pulmonary Function Test (Spirometry/DLCO/Lung Volumes) PFT Routine Typical atrial flutter (Multi) Expected: 11/13/2023 (Approximate), Expires: 11/12/2024 [facility] Work Phone: Comment on above: Expected: 11/13/2023 (Approximate), Expi res: 11/12/2024 Start: 11-13-2023 End: 11-13-2023 Patient encounter procedure 11/13/2023 2:00 PM EDT Office Visit [facility] [address] [place] [phone] Jonas Ch MD [address] [facility] [place] [address] [facility] Start: 11-13-2023 End: 11-12-2024 Thyrotropin [Units/volume] in Serum or Plasma Thyroid Stimulating Hormone Lab Routine High risk medication use Expected: 11/13/2023 (Approximate), Expires: 11/12/2024 [facility] Work Phone: Comment on above: Expected: 11/13/2023 (Approximate), Expi res: 11/12/2024 Start: 11-13-2023 End: 11-12-2024 XR Chest 2 Views XR chest 2 views Imaging Routine Typical atrial flutter (Multi) Expected: 11/13/2023 (Approximate), Expires: 11/12/2024 [facility] Work Phone: Comment on above: Expected: 11/13/2023 (Approximate), Expi res: 11/12/2024 Start: 11-12-2023 [facility] Start: 11-11-2023 [facility] Start: 11-10-2023 Bacteria identified in Urine by Culture [facility] Start: 11-10-2023 Referral to neurologist [facility] Start: 11-10-2023 Hospital admission [facility] Start: 11-10-2023 Physical therapy procedure [facility] Start: 11-10-2023 Referral to occupational therapist [facility] Start: 11-10-2023 [facility] Start: 11-10-2023 [facility] Start: 11-05-2023 [facility] Start: 10-30-2023 Blood zinc measurement [facility] Start: 10-30-2023 [facility] Start: 10-28-2023 End: 10-06-2025 Cardioversion External Cardioversion External Cardiac Services Routine Typical atrial flutter (Multi) Expected: 10/28/2023 (Approximate), Expires: 10/06/2025 [facility] Service Area Work Phone: Comment on above: Expected: 10/28/2023 (Approximate), Expi res: 10/06/2025 Start: 09-14-2023 [facility] Start: 09-12-2023 Referral to coil cleaner [facility] Start: 09-12-2023 Hospital admission [facility] Start: 12-28-2022 COVID-19 Vaccine ( season) COVID-19 Vaccine ( season) [facility] Start: 12-17-2021 Computed tomography of abdomen and pelvis with contrast CT abdomen pelvis w con [facility] Start: 12-17-2021 End: 12-17-2021 Emergency department patient visit Departed Emergency [facility] Start: 12-13-2021 [facility] Work Phone: Start: 12-11-2021 Referral to urologist [facility] Work Phone: Start: 12-11-2021 Referral to general surgeon [facility] Work Phone: Start: 12-09-2021 Hospital admission [facility] Work Phone: Start: 06-10-2021 Screening for malignant neoplasm of breast Mammogram [facility] Start: 2017 RSV High Risk: (Elderly (60+) or Population) (1 - Risk 60-74 years 1-dose series) RSV High Risk: (Elderly (60+) or Population) (1 - Risk 60-74 years 1-dose series) [facility] Start: 2017 RSV patients and/or patients aged 60+ years (1 - 1-dose 60+ series) RSV patients and/or patients aged 60+ years (1 - 1-dose 60+ series) [facility] Start: 11-26-2007 Zoster Vaccines (1 of 2) Zoster Vaccines (1 of 2) [facility] Start: 11-26-1979 DTaP/Tdap/Td Vaccines (1 - Tdap) DTaP/Tdap/Td Vaccines (1 - Tdap) [facility] Start: 1978 Screening for malignant neoplasm of cervix [facility] Start: 1976 Pneumococcal vaccination Pneumococcal Vaccine (1 of 2 - PCV) [facility] Start: 1976 Urine screening for protein Diabetes: Urine Protein Screening [facility] Start: 11-26-1975 Hepatitis C screening Hepatitis C Screening [facility] Start: 11-26-1967 Diabetic foot examination Diabetes: Foot Exam [facility] Start: 11-26-1967 Glaucoma screening Diabetes: Retinopathy Screening [facility] Start: 11-26-1963 Pneumococcal Vaccine: 65+ Years (1 of 2 - PCV) Pneumococcal Vaccine: 65+ Years (1 of 2 - PCV) [facility] Start: 1958 MMR Vaccines (1 of 1 - Standard series) MMR Vaccines (1 of 1 - Standard series) [facility] Start: 1957 Annual wellness visit [facility] Start: 1957 Hemoglobin A1c measurement Diabetes: Hemoglobin A1C [facility] Start: 1957 Lipid panel Lipid Panel [facility] Start: 1957 Medicare Annual Wellness Visit Medicare Annual Wellness Visit (AWV) [facility] Start: 1957 Screening for malignant neoplasm of colon [facility] Start: 1957 Screening for osteoporosis Bone Density Scan [facility] Start: 1957 Thyroid stimulating hormone measurement TSH Level [facility] Start: 1957 Urine screening for protein Diabetes: Urine Protein Screening [facility] 24 hour urine measurement [facility] Albumin [Mass/volume ] in Serum or Plasma [facility] Albumin/Globulin ratio [facility] Aldolase measurement [facility] Angiotensin converti ng enzyme [Enzymatic activity/volume] in Serum or Plasma [facility] Antibody measurement [facility] Arsenic measurement [facility] Bacteria identified in Unspecified specimen by Aerobe culture [facility] Borrelia burgdorferi Ab [Interpretation] in Serum [facility] Borrelia burgdorferi IgG Ab [Presence] in Serum or Plasma by Immunoassay [facility] Borrelia burgdorferi IgG+IgM Ab [Presence] in Serum by Immunoassay [facility] Borrelia burgdorferi IgM Ab [Presence] in Serum or Plasma by Immunoassay [facility] Centromere protein B Ab [Units/volume] in Serum [facility] Ceruloplasmin [Mass/ volume] in Serum or Plasma [facility] Ceruloplasmin [Mass/ volume] in Serum or Plasma [facility] Complement C3 [Mass/ volume] in Serum or Plasma [facility] Complement C4 [Mass/ volume] in Serum or Plasma [facility] Comprehensive metabo lic 1999 panel - Serum or Plasma [facility] Comprehensive metabo lic 1999 panel - Serum or Plasma [facility] Comprehensive metabo lic 1999 panel - Serum or Plasma [facility] Copper measurement [facility] Cryoglobulin [Presen ce] in Serum [facility] Electrophoresis: [id number] [facility] Electrophoresis: [id number]-1-lavvgjcx [facility] Electrophoresis: beta-globulin [facility] Electrophoresis: gaby ma globulin [facility] FLOWCYTOMETRY NEOGENOMIC FLOWCYT OMETRY NEOGENOMIC Lab Routine 06/26/2024 10:44 AM [facility] [employer] Work Phone: Globulin [Mass/volum e] in Serum [facility] Glucose measurement estimated from glycated hemoglobin [facility] Hepatitis A virus an tibody, IgM type [facility] Hepatitis B core ant ibody measurement, IgM type [facility] Hepatitis B virus razo rface Ag [Presence] in Serum or Plasma by Immunoassay [facility] Hepatitis C virus Ig G Ab [Presence] in Serum or Plasma by Immunoassay [facility] Hepatitis C virus RN A [log units/volume] (viral load) in Serum or Plasma by TEJINDER with probe detection [facility] Hepatitis C virus RN A [Units/volume] (viral load) in Serum or Plasma by TEJINDER with probe detection [facility] Histone IgG Ab [Units/volume] in Serum by Immunoassay [facility] HIV 1+2 Ab+HIV1 p24 Ag [Presence] in Serum or Plasma by Immunoassay [facility] Homocysteine [Moles/ volume] in Serum or Plasma [facility] Homogenous nuclear A b pattern [Titer] in Serum [facility] Homogenous nuclear A b pattern [Titer] in Serum [facility] IgA [Mass/volume] in Serum or Plasma [facility] IgG [Mass/volume] in Serum or Plasma [facility] IgM [Mass/volume] in Serum or Plasma [facility] Immunofixation for Urine [facility] Sushma-1 extractable nuc lear Ab [Units/volume] in Serum [facility] Lead [Presence] in Blood [facility] Lutropin [Units/volu me] in Serum or Plasma [facility] Measurement of monoc lonal protein concentration [facility] Mercury [Mass/volume ] in Blood [facility] Methylmalonate [Moles/volume] in Serum or Plasma [facility] MG Breast - bilatera l Screening [facility] Mitochondria M2 IgG Ab [Units/volume] in Serum [facility] Myeloperoxidase Ab [Units/volume] in Serum by Immunoassay [facility] Neutrophil cytoplasm ic Ab.classic [Titer] in Serum by Immunofluorescence [facility] Nuclear Ab [Titer] in Serum [facility] Nuclear Ab [Titer] in Serum [facility] P-ANCA measurement [facility] Patient Education [facility] Work Phone: Patient referral [facility] Work Phone: Porphobilinogen [Mass/volume] in Urine [facility] Protein [Mass/volume ] in Serum or Plasma [facility] Protein [Mass/volume ] in Urine [facility] Proteinase 3 Ab [Units/volume] in Serum by Immunoassay [facility] Pyridoxine [Mass/vol ume] in Serum or Plasma [facility] Reagin Ab [Presence] in Serum by RPR [facility] Rheumatoid factor [Units/volume] in Serum or Plasma [facility] Ribosomal P Ab [Units/volume] in Serum [facility] Serum immunofixation [facility] Sjogrens syndrome-A extractable nuclear Ab [Units/volume] in Serum [facility] Sjogrens syndrome-B extractable nuclear Ab [Units/volume] in Serum [facility] Fritz extractable nu clear Ab [Units/volume] in Serum [facility] Thallium [Mass/volum e] in Serum or Plasma [facility] West Nile virus IgG Ab [Presence] in Serum by Immunoassay [facility] West Nile virus IgM Ab [Presence] in Serum by Immunoassay [facility] Immunizations Immunization Date Immunization Notes Care Provider Fa sonal 04-02-2002 measles, mumps and rubella virus vaccine Sandra Keita Other [facility] NEGATED: Highlighted row has not occurred!03-04-2023 Flu Shot - Documentation Purposes Only Sandra Keita Other [facility] Other NEGATED: Highlighted row has not occurred!04-16-2022 influenza, seasonal, injectable Patient Objection Sandra Keita Other [facility] Payers Date Payer Category Payer Medicare [id number] 2023 Self-pay [id number] 2023 Dual Eligibility Medicare/Medicaid Organization [employer] DUAL [employer]PLETE [id number] 2023 Private Health Insurance [facility] [id number] 2023-Present [address] [address] [place] [address] [id number] 2022 Medicare [id number] 2.16.840.1.158588.19 2022 Medicare [employer] DUAL COMPLETE [id number] 2022-Present [address] [place] [address] [id number] .[id number] 2022 Medicare (Managed Care) [facility] [id number] 2022 Private Health Insurance [id number] 2021 Medicaid [id number]. [id number] .[id number] 2021 Blue Cross Blue Shield [id number] 2.840.1.602714.19 2017 Unknown [id number] 1959 Medicaid [id number] 1955 Unknown [id number] 2.16840.1.476206.3.579.2 .1957 Unknown [id number] 2.16840.1.200656.3.579.2 .72 1957 Unknown [id number] 2.0.1.677218.3.579.2 .1957 Unknown [id number] 2.16.840.1.317732.3.579.2 .727 1957 Unknown [id number] 2.16.840.1.590164.3.579.2 .727 1957 Unknown [id number] 2.16.840.1.823159.3.579.2 .1258 1957 Unknown [id number] 2.16.840.1.081374.3.579.2 .1258 1957 Unknown [id number] 2.16.840.1.174412.3.579.2 .1258 1957 Unknown [id number] 2.16.840.1.549084.3.579.2 .1258 1957 Unknown [id number] 2.16.840.1.193882.3.579.2 .1258 1957 Unknown [id number] 2.16.840.1.442902.3.579.2 .1258 1957 Unknown [id number] 2.16.840.1.920503.3.579.2 .1258 1957 Unknown [id number] 2.16.840.1.213613.3.579.2 .1258 1957 Unknown [id number] 2.16.840.1.840340.3.579.2 .1258 1957 Unknown [id number] 2.16.840.1.678140.3.579.2 .1258 1957 Unknown [id number] 2.16.840.1.427846.3.579.2 .1258 1957 Unknown [id number] 2.16.840.1.643586.3.579.2 .1258 1957 Unknown [id number] 2.16.840.1.091996.3.579.2 .1258 1957 Unknown [id number] 2.16.840.1.202348.3.579.2 .1258 1957 Unknown [id number] 2.16840.1.409145.3.579.2 .124 1957 Unknown [id number] 2.840.1.517986.3.579.2 .1244 1957 Unknown [id number] 2.840.1.484507.3.579.2 .1243 1957 Unknown [id number] 2.840.1.164492.3.579.2 .1243 1957 Unknown [id number] 2.840.1.757064.3.579.2 .1243 1957 Unknown [id number] 2.840.1.314912.3.579.2 .1243 1957 Unknown [id number] 2.840.1.665959.3.579.2 .1244 Medicare [id number] 2.840.1.310214.19 Unknown [id number] 2.840.1.304750.3.579.2 .531 Unknown [id number] 2.840.1.734261.3.579.2 .531 Unknown [id number] 2.16840.1.471732.3.579.2 .531 Unknown [id number] 2.840.1.422321.3.579.2 .531 Unknown [id number] 2.16840.1.550049.3.579.2 .531 Unknown [id number] 2.16840.1.361469.3.579.2 .531 Unknown [id number] 2.16840.1.668945.3.579.2 .531 Unknown [id number] 2.16840.1.202294.3.579.2 .531 Unknown [id number] 2.16840.1.634898.3.579.2 .531 Unknown [id number] 2.16.840.1.908241.3.579.2 .531 Unknown [id number] 2.16.840.1.833750.3.579.2 .531 Unknown [id number] 2.16.840.1.652630.3.579.2 .531 Unknown [id number] 2.16.840.1.258933.3.579.2 .531 Unknown [id number] 2.16.840.1.319893.3.579.2 .531 Unknown [id number] 2.16.840.1.693676.3.579.2 .531 Unknown [id number] 2.16.840.1.721765.3.579.2 .531 Unknown [id number] 2.16.840.1.136042.3.579.2 .531 Unknown [id number] 2.16.840.1.022139.3.579.2 .531 Social History Date Type Detail Facility Unknown if ever smoked [facility] Other Start: 10-07-2023 End: 04-08-2024 Sex Assigned At [facility]GK-5 Other Start: 12-17-2021 End: 04-28-2024 Tobacco smoking status [facility] Smoker (finding) [facility] Start: 1955 Sex Assigned At Female F [facility] Start: 04-29-1975 End: 10-07-2023 Tobacco smoking status NDIS Smokes tobacco daily [facility] Start: 04-29-1975 History of tobacco use Cigarette Smo ker [facility] Work Phone: Start: 10-07-2023 Tobacco use and exposure Smokeless tobacco non-user [facility] Work Phone: Start: 10-07-2023 End: 04-08-2024 Alcoholic beverage intake Lifetime non-drinker (finding) [facility] Work Phone: Start: 10-07-2023 End: 04-08-2024 History of Social function [facility] Work Phone: Start: 1955 Sex assigned at Not on file [facility] Work Phone: Start: 09-27-2023 End: 06-26-2024 Exposure to SARS-CoV-2 (event) Not sure [facility] Start: 01-29-2023 Tobacco use and exposure User of smokeless tobacco [facility] Start: 01-29-2023 Tobacco Comment Smokes 11-20 c igs per day [facility] Start: 01-09-2023 Alcohol Comment caffeine intak e: occasional [facility] Start: 04-29-2024 End: 06-27-2024 Sex Female (finding) [facility] Medical Equipment Procedure Code Equipment Code Equipment Origin al Text Equipment Identifier Dates Start: 07-10-2018 Goals Date Patient Goal Desired Activity /State Functional Status Date Assessment Result Facility 04-30-2024 Functional status Patient at Baseline [facility] Work Phone: 11-12-2023 Functional status Patient at Baseline [facility] Work Phone: 09-14-2023 Functional status Patient at Baseline [facility] Work Phone: 12-13-2021 Functional status Patient at Baseline [facility] Work Phone: Mental Status Date Assessment Result Facility 04-30-2024 Cognitive function Cognitive Sta tus Patient at Baseline [facility] Work Phone: 11-12-2023 Cognitive function Cognitive Sta tus Patient at Baseline [facility] Work Phone: 09-14-2023 Cognitive function Cognitive Sta tus Patient at Baseline [facility] Work Phone: 12-13-2021 Cognitive function Cognitive Sta tus Patient at Baseline [facility] Work Phone: Clinical Notes 02-27-2021 to 06-26-2024 Roland Faust MD - 06/26/2024 9:40 AM ESTPatient InstructionsTelephone Encounter - Cali Duque - 05/19/2024 11:20 AM ESTTelephone Encounter - Cali Duque - 05/19/2024 11:20 AM EST Note Date & Type Note Facility 06-26-2024 History of Present illness Narrative Subjective Taye Gay is a 68 y.o. female Chief Complaint Follow-up HPI Patient is here for follow-up to management for history of atrial flutter with prior cardioversion and prior treatment with amiodarone. She stopped amiodarone because of concern about lower extremity weakness. She has remained in normal sinus rhythm. She denies complaint of chest pain, palpitation, lightheadedness, dizziness or syncope. She continued to have very limited exercise tolerance primarily due to leg weakness. Her family reports she simply sit in chair and does not do any activity.. The patient was recently in the hospital for symptoms of TIA. Record noted and reviewed with her. During that hospitalization records suggest she had a brief episode of atrial fibrillation. Assessment 1. Atrial flutter with prior cardioversion. She was on amiodarone but discontinued due to concern about amiodarone causing lower extremity weakness. She appeared to have had a recent brief episode of A-fib while in the hospital for workup for TIA 2. Questionable intolerance to amiodarone due to extreme weakness however this turned out to be more musculoskeletal issues 3. Long-term anticoagulation 4. History of nonischemic cardiomyopathy improved last echocardiogram showed normal LV systolic function. No previous stress test was done but the patient denies any anginal symptoms 5. Hypertension controlled 5. Hyperlipidemia 6. Tobacco use 7. Diabetes mellitus 8. Obesity with BMI of 30 9. Previous complaint of lower extremity edema lower extremity Doppler was negative Plan 1. Patient EKG today shows she is in sinus rhythm. I recommended continue with observant approach. If she had any recurrence in the future would consider ablation versus sotalol or Tikosyn 2. We discussed risk factor modification 3. Risk, benefit and alternative anticoagulation reviewed with patient at length she understood and agreed 4. We discussed ischemic evaluation the patient want to defer for now 5. Advised her to notify us if she develop any recurrence of her arrhythmia 6. Will see her back in 6 months with an EKG Review of Systems Neurological: Positive for weakness. All other systems reviewed and are negative. EKG done in office today Vitals: 06/26/24 0946 BP: 116/70 BP Location: Left arm Patient Position: Sitting Pulse: 62 Weight: 94.2 kg (207 lb 9.6 oz) Height: 1.702 m (5' 7 ) Objective [...] times daily (morning and late afternoon)., Disp: 180 tablet, Rfl: 3 docusate sodium (Colace) 100 mg capsule, Take 1 capsule (100 mg) by mouth 2 times a day., Disp: , Rfl: donepezil (Aricept) 10 mg tablet, Take 1 tablet (10 mg) by mouth 2 times a day., Disp: , Rfl: empagliflozin (Jardiance) 25 mg, Take 1 tablet (25 mg) by mouth once daily., Disp: , Rfl: folic acid (Folvite) 1 mg tablet, 1 tablet (1 mg) once daily., Disp: , Rfl: furosemide (Lasix) 20 mg tablet, Take 1 tablet (20 mg) by mouth every other day., Disp: 45 tablet, Rfl: 3 HumaLOG KwikPen Insulin 100 unit/mL injection, inject subcutaneously before meals and at bedtime 1:50 CORRECTIVE SCALE (EXPECT UP TO 20 UNITS/DAY, Disp: , Rfl: insulin glargine (Toujeo Solostar- 1 unit dial) 300 unit/mL (1.5 mL) injection, 20 Units., Disp: , Rfl: magnesium oxide (Mag-Ox) 400 mg tablet, Take 1 tablet (400 mg) by mouth 2 times a day., Disp: , Rfl: memantine (Namenda) 10 mg tablet, Take 1 tablet (10 mg) by mouth 2 times a day., Disp: , Rfl: metFORMIN (Glucophage) 500 mg tablet, Take 1 tablet (500 mg) by mouth 2 times daily (morning and late afternoon)., Disp: , Rfl: omeprazole (PriLOSEC) [address] capsule, Take 1 capsule (20 mg) by mouth once daily in the morning. Take before meals., Disp: , Rfl: semaglutide (Ozempic) 1 mg/dose (4 mg/3 mL) pen injector, 2 mg 1 (one) time per week., Disp: , Rfl: simvastatin (Zocor) 20 mg tablet, Take 1 tablet (20 mg) by mouth once daily., Disp: 90 tablet, Rfl: 3 Assessment/Plan 1. Typical atrial flutter (Multi) ECG 12 Lead 2. Nonischemic cardiomyopathy (Multi) Follow Up In Cardiology Follow Up In Cardiology 3. Hypercholesteremia 4. Hypertension, unspecified type 5. BMI 32.0-32.9,adult 6. Current smoker Scribe Attestation By signing my name below, IMelina LPN, Scribe attest that this documentation has been prepared under the direction and in the presence of Roland Faust MD. Provider Attestation - Scribe documentation All medical record entries made by the Scribe were at my direction and personally dictated by me. I have reviewed the chart and agree that the record accurately reflects my personal performance of the history, physical exam, discussion and plan. documented in this encounter [facility] Work Phone: 06-26-2024 Instructions Melina Lee LPN - 06/26/2024 9:40 AM EST Please bring all medicines, vitamins, and herbal supplements with you when you come to the office. Prescriptions will not be filled unless you are compliant with your follow up appointments or have a follow up appointment scheduled as per instruction of your physician. Refills should be requested at the time of your visit. BMI was above normal measurement. Current weight: 94.2 kg (207 lb 9.6 oz) Weight change since last visit (-) denotes wt loss -0.4 lbs Weight loss needed to achieve BMI 25: 48.3 Lbs Weight loss needed to achieve BMI 30: 16.5 Lbs Provided instructions on dietary changes. 6 months with ekg documented in this encounter [facility] Work Phone: 05-19-2024 Telephone encounter Note Daughter same day canceled same day canceled today's appointment due to overslept. RS for 06/02/24 [facility] 05-19-2024 Miscellaneous Notes Daughter same day canceled same day canceled today's appointment due to overslept. RS for 06/02/24 documented in this encounter [facility] 04-30-2024 Progress note [facility] 04-30-2024 Discharge summary Note Date/Time April 30, 2024 10:28am [facility] [address] [place] [address] Discharge Summary Signed Patient: Taye Gay MR#: [id number] : 1955 Acct:[id number] Age/Sex: 68 / F Adm Date: 4 Loc: Room: [address] [place] [address]: Priscilla Lang MD Copies to: [...] taking multiple medications that 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 At this [...] ask her primary care doctor to obtain [facility] record entirely to address abnormalities seen on [...] ask your primary care provider to obtain [facility] records entirely to follow up on all [...] or having drug?drug interaction. Discharging you from [facility] does not mean that your medical care [...] constipation) (DME) pen needle, diabetic [Sure-Fine Pen [place]] .Route lidocaine 5 % ointment 1 applic [...] % (Auto) 63.5, Lymph % (Auto) 24.9, [place] % (Auto) 8.3, Eos % (Auto) 2.9, Baso % (Auto) 0.4, Nucleat RBC Rel Count 0.0, Neut # (Auto) 4.6, Lymph # (Auto) 1.8, [place] # (Auto) 0.6, Eos # (Auto) 0.2, [...] signed by Priscilla Lang MD> 04/30/24 1028 [facility] Work Phone: 1(410) 741-518201-02-2025 [id number] Discharge Summary Signed Patient: Taye Gay MR#: [id number] : 1955 Acct:[id number] Age/Sex: 68 / F Adm Date: 4 Loc: Room: [address] [place] [address]: Priscilla Lang MD Copies to: [...] taking multiple medications that 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 Discharging you from [facility] does not mean that your medical care [...] constipation) (DME) pen needle, diabetic [Sure-Fine Pen [place]] .Route lidocaine 5 % ointment 1 applic [...] % (Auto) 63.5, Lymph % (Auto) 24.9, [place] % (Auto) 8.3, Eos % (Auto) 2.9, Baso % (Auto) 0.4, Nucleat RBC Rel Count 0.0, Neut # (Auto) 4.6, Lymph # (Auto) 1.8, [place] # (Auto) 0.6, Eos # (Auto) 0.2, [...] MD 04/30/24 1016 Signed By: 04/30/24 1028 [facility]01-01-2025 Consult note Author Lit Clark [facility] Note Date/Time April 29, 2024 11 :07am [facility] [address] [place], [place] [id number] Neurology Consult Note Signed Patient: Taye Gay MR#: [id number] : 1955 Acct:[id number] Age/Sex: 68 / F Adm Date: 4 Loc: Room: [address] [place] [address] Type: ADM IN Attending Dr: Priscilla Lang MD Copies to: DO Sandra Garrido DO Rafik Massouh, MD~ HPI Consult Date: 04/29/24 [place]: Lit Clark DO Reason for consult: Slurred [...] noted below or in HPI [facility] Medical History BMI 32.0-32.9,adult Abnormal thyroid blood [...] (Stool Softener) 100 mg PO DAILY PRN [id number]/14/24 [History Confirmed 04/28/24] multivitamin 1 tab PO DAILY 06/12/23 [History Confirmed 04/28/24] pen needle, diabetic [Sure-Fine Pen [place]] 06/12/23 [History Confirmed 04/28/24] metformin 500 mg [...] Oz Bowling M.D.04/28/2024 9:46 PM Dictation Location: [place] [address] 04/28/24 19:44 IMPRESSION: No acute intracranial pathology. No evidence of focal stenosis, aneurysmal dilatation, dissection or occlusion. Impression dictated by: Oz Bowling M.D.04/28/2024 9:44 PM Dictation Location: [place] [address] Assessment/Plan (1) Atrial fibrillation: Qualifiers: Atrial fibrillation [...] may be metabolic in nature and not employee representative necessarily of transient ischemia or of [...] <Electronically signed by Lit Clark DO> 04/29/24 1100 [facility] Work Phone: 1(795) 223-583101-01-2025 Progress note Author Priscilla Lang [facility] Note Date/Time April 29, 2024 11 :02am [facility] [address] [place] [address] Hospitalist Progress Note Signed Patient: Taye Gay MR#: [id number] : 1955 Acct:[id number] Age/Sex: 68 / F Adm Date: 4 Loc: Room: [address] [place] [address] Type: ADM IN Attending Dr: Priscilla Lang [...] of dementia, possible Alzheimer's dementia -continue home mgtugafsc44 mg twice daily and donepezil 20 mg [...] Dose Route Start Last Admin Trade Name Gillesq PRN Reason Stop Dose Admin Apixaban 5 [...] providers. Documented By: Priscilla Lang MD 04/29/24 1055 Signed By: <Electronically signed by Priscilla Lang MD> 04/29/24 1103 [facility] Work Phone: 1(843) 298-500201-01-2025 [place] [address] Neurology Consult Note Signed Patient: Taye Gay MR#: [id number] : 1955 Acct:[id number] Age/Sex: 68 / F Adm Date: 4 Loc: Room: [address] [place] [address] Type: ADM IN Attending Dr: Priscilla Lang MD Copies to: DO Sandra Garrido DO Rafik Massouh, MD~ HPI Consult Date: 04/29/24 [place]: Lit Clark DO Reason for consult: Slurred [...] noted below or in HPI [facility] Medical History BMI 32.0-32.9,adult Abnormal thyroid blood [...] History Father Heart disease History of stroke [facility] Problem: Diagnosed with Stroke Cancer throat heart [...] (Stool Softener) 100 mg PO DAILY PRN [id number]/14/24 [History Confirmed 04/28/24] multivitamin 1 tab PO DAILY 06/12/23 [History Confirmed 04/28/24] pen needle, diabetic [Sure-Fine Pen [place]] 06/12/23 [History Confirmed 04/28/24] metformin 500 mg [...] Oz Bowling M.D.04/28/2024 9:46 PM Dictation Location: [facility] 04/28/24 19:44 IMPRESSION: No acute intracranial pathology. No evidence of focal stenosis, aneurysmal dilatation, dissection or occlusion. Impression dictated by: Oz Bowling M.D.04/28/2024 9:44 PM [facility]ict[facility] Location[facility] [facility] Assessment/Plan (1) Atrial fibrillation: Qualifiers: Atrial fibrillation [...] may be metabolic in nature and not employee representative necessarily of transient ischemia or of [...] Clark DO 5 0858 Signed By: 04/29/24 1107 [facility]01-01-2025 [place] [address] Hospitalist Progress Note Signed Patient: Taye Gay MR#: [id number] : 1955 Acct:[id number] Age/Sex: 68 / F Adm Date: 4 Loc: Room: [address] [place] [address] Type: ADM IN Attending Dr: Priscilla Lang [...] RBCs and rare yeast. Shehas provided 3 to24 mg of aspirin x [...] of dementia, possible Alzheimer's dementia -continue home vxdulvbcg09 mg twice daily and donepezil 20 mg [...] MD 04/29/24 1059 Signed By: 04/29/24 1102 [facility]01-01-2025 History and physical note Author Chico Hearn [facility] Note Date/Time April 29, 2024 6: 39am [facility] [address] [place] [address] Hospitalist H&P Signed Patient: Taye Gay MR#: [id number] : 1955 Acct:[id number] Age/Sex: 68 / F Adm Date: 4 Loc: 3T Room: [address] [place] [address] Type: ADM IN Attending Dr: Chico Hearn DO Copies to: Sandra Keita, DO Chico Hearn, DO~ HPI DATE OF EXAMINATION: 04/29/24 CHIEF [...] presence of WBCs, RBCs and rare yeast. [facility] provided 3 to 24 mg of aspirin [...] of dementia, possible Alzheimer's dementia -continue home xzqjdkppu26 mg twice daily and donepezil 20 mg daily 12. Atrial fibrillation - continue Eliquis 5 mg twice daily for anticoagulationand carvedilol 12.5 mg twice daily. EKG in ER shows NSR 13. Hypoxia - no respiratory distress or cardiopulmonary complaints to accompany this. Will monitor telemetry and address as needed [facility] Medical History BMI 32.0-32.9,adult Abnormal thyroid blood [...] History Father Heart disease History of stroke [facility] Problem: Diagnosed with Stroke Cancer throat [...] (Stool Softener) 100 mg PO DAILY PRN zncreyjqdiyr49/14/24 [History Confirmed 04/28/24] multivitamin 1 tab PO DAILY 06/12/23 [History Confirmed 04/28/24] pen needle, diabetic [Sure-Fine Pen Orem] 06/12/23 [History Confirmed 04/28/24] metformin 500 mg [...] % (Auto) 24.6 % (.) 04/28/24 19:54 [place] % (Auto) 7.6 % (.) 04/28/24 19:54 Eos % (Auto) 2.7 % (.) 04/28/24 19:54 Baso % (Auto) 1.1 % (.) 04/28/24 19:54 Nucleat RBC Rel Count 0.2 /100 WBC (0-0.5) 04/28/24 19:54 Neut # (Auto) 6.5 x10E3/uL (1.8-7.7) 04/28/24 19:54 Lymph # (Auto) 2.5 x10E3/uL (1.00-4.8) 04/28/24 19:54 [place] # (Auto) 0.8 x10E3/uL (0.0-0.8) 04/28/24 19:54 [...] pH 5.5 (5.0-9.0) 04/28/24 22:02 Ur Specific [place] 1.038 (1.001-1.030) H 04/28/24 22:02 Urine Protein [...] signed by Chico Hearn DO> 04/29/24 0639 [facility] Work Phone: 1(839) 362-808901-01-2025 [place] [address] Hospitalist H&P Signed Patient: Taye Gay MR#: [id number] : 1955 Acct:[id number] Age/Sex: 68 / F Adm Date: 4 Loc: 3T Room: [address] [place] [address] Type: ADM IN Attending Dr: Chico Hearn DO Copies to: DO Chico Daniels, DO~ HPI DATE OF EXAMINATION: 04/29/24 CHIEF [...] RBCs and rare yeast. Shehas provided 3 to24 mg of aspirin x [...] of dementia, possible Alzheimer's dementia -continue home bgnixpmvy35 mg twice daily and donepezil 20 mg daily 12. Atrial fibrillation - continue Eliquis 5 mg twice daily for anticoagulationand carvedilol 12.5 mg twice daily. EKG in ER shows NSR 13. Hypoxia - no respiratory distress or cardiopulmonary complaints to accompany this. Will monitortelemetry and address as needed [facility] Medical History BMI 32.0-32.9,adult Abnormal thyroid blood [...] History Father Heart disease History of stroke [facility] Problem: Diagnosed with Stroke Cancer throat [...] (Stool Softener) 100 mg PO DAILY PRN nwcgwfydkdua32/14/24 [History Confirmed 04/28/24] multivitamin 1 tab PO DAILY 06/12/23 [History Confirmed 04/28/24] pen needle, diabetic [Sure-Fine Pen [place]rem] 06/12/23 [History Confirmed 04/28/24] metformin 500 mg [...] % (Auto) 24.6 % (.) 04/28/24 19:54 [place] % (Auto) 7.6 % (.) 04/28/24 19:54 Eos % (Auto) 2.7 % (.) 04/28/24 19:54 Baso % (Auto) 1.1 % (.) 04/28/24 19:54 Nucleat RBC Rel Count 0.2 /100 WBC (0-0.5) 04/28/24 19:54 Neut # (Auto) 6.5 x10E3/uL (1.8-7.7) 04/28/24 19:54 Lymph # (Auto) 2.5 x10E3/uL (1.00-4.8) 04/28/24 19:54 [place] # (Auto) 0.8 x10E3/uL (0.0-0.8) 04/28/24 19:54 [...] pH 5.5 (5.0-9.0) 04/28/24 22:02 Ur Specific [place] 1.038 (1.001-1.030) H 04/28/24 22:02 Urine Protein [...] Chico Hearn DO 04/28/24 57 Signed By: 04/29/24 0639 [facility]12-31-2024 Radiology Diagnostic study note [facility] [place] [address] [place] [address] CT Scan Report Signed Patient: Taye Gay MR#: [id number] : 1955 Acct:[id number] Age/Sex: 68 / F ADM Date: 4 Loc: ER Room: Type: [facility] ER Attending Dr: Copies to: Wesley Villafuerte PA-C~ Ordering Provider: Wesley Villafuerte PA-C Date of Service: 04/28/24 CT/CT angio head: weakness ([id number]) CT/CT angio neck: weakness ([id number]) CT/CT head/brain wo con: weakness CT head/brain [...] Oz Bowling M.D.04/28/2024 9:44 PM Dictation Location: [facility]- Transcribed By: AMY 04/28/242143 Dictated By: Oz Bowling II, MD 04/28/242129 Signed By: 04/28/242143 [facility] Work Phone: 1(213) 835-948412-17-2024 Evaluation note* Diagnosis Onset Date Resolution Status Admit Date High granulocyte count acute De 2023 9:30am Secondary polycythemia acute 2023 9:30am BMI 32.0-32.9,adult acute Decem 2023 11:14am Chronic kidney disease (CKD) stage G2/A2, mildly decreased glomerular filtr acute April 28, 2024 11:14am Dietary counseling and surveillance acute April 28 024 11:14am Hyperlipidemia acute March 312023 11:14am Hypertension acute March 11:14am Peripheral neuropathy acute Mar 11:14am Type 2 diabetes mellitus acute April 28, 2024 11:14am Vitamin B 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 D ecember 2023 11:14am TIA (transient ischemic attack) acut e April 28, 2024 10:38pm [facility] Work Phone: 1([phone]) 467-246012-17-2024 Evaluation note* Diagnosis Onset Date Resolution Status Admit Date High granulocyte count acute 2023 9:30am Secondary polycythemia acute 2023 9:30am BMI 32.0-32.9,adult acute Decem 2023 11:14am Chronic kidney disease (CKD) stage G2/A2, mildly decreased glomerular filtr acute April 28, 2024 11:14am Dietary counseling and surveillance acute April 28 024 11:14am Hyperlipidemia acute March 312023 11:14am Hypertension acute March 11:14am Peripheral neuropathy acute Mar 11:14am Type 2 diabetes mellitus acute April 28, 2024 11:14am Vitamin B 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 D ecember 2023 11:14am Atrial fibrillation acute Decem 2023 10:38pm Generalized weakness acute Dece 2023 10:38pm Insulin dependent diabetes mellitus acute April 28 10:38pm TIA (transient ischemic attack) acut e April 28, 2024 10:38pm [facility] Work Phone: 1(415) 258-355312-17-2024 Evaluation note* Diagnosis Onset Date Resolution Status Admit Date High granulocyte count acute De 2023 9:30am Secondary polycythemia acute 2023 9:30am High granulocyte count acute De 2023 9:53am Secondary polycythemia acute De 2023 9:53am BMI 32.0-32.9,adult acute Decem 2023 [...] nicotine dependence acute May 07, 2024 1:02pm [facility] Work Phone: 1(812) 104-229012-17-2024 Evaluation note* Diagnosis Onset Date Resolution Status Admit Date High granulocyte count acute De 2023 9:30am Secondary polycythemia acute 2023 9:30am High granulocyte count acute De 2023 9:53am Secondary polycythemia acute De 2023 9:53am BMI 32.0-32.9,adult acute Decem 2023 11:14am Chronic kidney disease (CKD) stage G2/A2, mildly decreased glomerular filtr acute April 28, 2024 11:14am Dietary counseling and surveillance acute April 28, 2 024 11:14am Hyperlipidemia acute March 312023 11:14am Hypertension acute March 11:14am Peripheral neuropathy acute Mar 11:14am Type 2 diabetes mellitus acute April 28, 2024 11:14am Vitamin B 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 D ec2023 11:14am Atrial fibrillation acute Decem 2023 10:38pm Generalized weakness acute mb2023 10:38pm Insulin dependent diabetes mellitus acute April 28, 2 024 10:38pm TIA (transient ischemic attack) acut e April 28, 2024 10:38pm Cigarette nicotine dependence acute May 07, 2024 1:02pm Disordered sleep acute May 07, 2024 1:02pm Hypotension acute May 07, 2024 1:02pm Stool incontinence acute Apruar 2024 1:02pm TIA (transient ischemic attack) acut e May 07, 2024 1:02pm [facility] [place] [facility] Work Phone: 1(693) 734-824312-11-2024 History of Present illness Narrative* Karl Fritz DPM - 04/08/2024 4:00 PM EST Images from the original note were not included. HPI: Patient presents today complaining of an ulcer on the lateral 5th right foot. Patient has pain withwalking and standing due to this lesion. Patient has tried [place] for treatment, x-ray, antibiotic, (not taking [...] 7. RTC: 2 weeks. documented in this encounterAlvin J. Siteman Cancer CenterIszyhmgwfs70-27-9977 History of Present illness Narrative* Oz Kincaid [...] not included. Outpatient Progress Note Patient: Taye Agustin Priti Dept: Neurology : 1955 Appt Date: 04/07/2024 Prev Appt: 02/25/2024 Chief Complaint Patient presents with cognitive decline Assessment and Plan - Assessment & Plan Cognitive decline Pt to retry donepezil 15 qam (or 10/5). B12 deficiency (Continue B12 SL.) Neurogenic pain (Continue current regimen.) Carpal tunnel syndrome, bilateral (Continue splints B nightly.) Cervical paraspinal muscle spasm Guyon syndrome, unspecified laterality Granulocytosis Consult haematology. No orders of the defined types were placed in this encounter. 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 History of Present Illness, Associated Treatments and [...] Pain - better with increased dose, now /, now an ache . Radic - pt had seen Dr. Eden 12/2023, surgery felt not to be needed as yet. +BEATRICE - has seeen by Dr. Lenz, From prev - [[[ Lost to follow-up since 2019. Worsening gait, more unsteady, muscle atrophy in LEs.Burning paraesthesiae B feet, about equal bilat. ]]] Onset Semeiology Paraesthesiae in feet and fingertips 08/06. Restlessness well controlled. Imaging MR L-s (11/2023, [facility]) - HNP T12-L1 mild; canal sten L2-3 mod; errol sten L2-3 modB L4-5-S1 modB US LE (12/2016, [place]) - atherosclerosis, nl PVR. Testing [facility] (11/2023) - acute L S1 (nEMG) + PN pattern signif worse . . . . (03/2017, [facility] ) - PN pattern Labs - S31=836/15/116/>22.3, was 359/16.7H/328/>22.3 ... A1c=8.4, was 10.4(!) ,,, [...] nortrip. 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 Continuous Blood Gluc Sensor (O' Doughty'sStyle Brent 14 Day Sensor) [facility] apply 1 SENSOR as directed every 14 [...] if tolerated 60 tablet 3 Droplet Pen Orem 32G X 4 MM [facility] use 1 PEN NEEDLE to inject MEDICATION [...] capsule by mouth at bedtime if needed Ashley SoloStar 300 UNIT/ML injection inject 20 units subcutaneously as directed [DISCONTINUED] metoprolol succinate XL (Toprol-XL) 50 MG 24 hr tablet Take 50 mg by mouth in the morning and 50 mg in the evening. No facility-administered encounter medications on file as of 04/07/2024. Oz Kincaid M.D. [facility] ? [address] [facility] [address] ? [place] [address] ? ? fax Neurology ? Clinical Neurophysiology ? Epilepsy ? Sleep Disorders ? Clinical Informatics documented in this encounterAlvin J. Siteman Cancer CenterCixvfldjrk06-91-7439 History of Present illness Narrative* Roland Faust MD - 03/25/2024 1:30 PM EST Subjective [...] dementia. Family reported that they scheduled to seeP in the near future Plan ROS Vitals: [...] By signing my name below, Vania BardalesKenisha DE LA ROSA, Scribe attest that this documentation has been [...] exam, discussion and plan. documented in this encounterProMedica Bay Park Hospital Work Phone: 1(202) 364-450511-27-2024 Instructions* Patient Instructions* Dave Meneses MA - [...] time of your visit. documented in this encounterProMedica Bay Park Hospital Work Phone: 1(781) 525-453210-29-2024 History of Present illness Narrative* Oz Kincaid MD - 02/25/2024 2:43 PM EDTAssociated Problem(s): BEATRICE positive Get Dr. Gonzalez's note (2nd request). * Oz Kincaid MD - 02/25/2024 2:15 PM EDTAssociated Problem(s): Cognitive decline Add memantine 10 -> bid. Then add donepezil 10, titrate. Handout. Get MR images transferred to [facility] PACS for my review. * Oz Kincaid [...] not included. Outpatient Progress Note Patient: Taye Duranaton Dept: Neurology : 1955 Appt Date: 02/25/2024 Prev Appt: 01/07/2024 Chief Complaint Patient presents with Peripheral Neuropathy Assessment and Plan - Assessment & Plan Cognitive decline Add memantine 10 -> bid. Then add donepezil 10, titrate. Handout. Get MR images transferred to [facility] PACS for my review. Neurogenic pain (Continue [...] prev - [[[ Lost to follow-up since 2019. Worsening gait, more unsteady, muscle atrophy in LEs.Burning paraesthesiae B feet, about equal bilat. ]]] Onset Semeiology Paraesthesiae in feet and fingertips 08/06. Restlessness well controlled. Imaging MR L-s (11/2023, [facility]) - HNP T12-L1 mild; canal sten L2-3 mod; errol sten L2-3 modB L4-5-S1 modB US LE (12/2016, [place]) - atherosclerosis, nl PVR. Testing [facility] (11/2023) - acute L S1 (nEMG) + PN pattern signif worse . . . . (03/2017, [facility]) - PN pattern Labs - O79=661/15/116/>22.3, was 359/16.7H/328/>22.3 ... A1c=8.4, was 10.4(!) ,,, [...] nortrip. 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 (REFER TO PRESCRIPTION NOTES). cyanocobalamin (Vitamin B-12) 2500 MCG tablet cyclobenzaprine (Flexeril) 10 MG tablet 1-2 tabs QHS 60 tablet 3 Docusate Sodium (DSS) 100 MG capsule Take 100 mg by mouth in the morning and 100 mg in the evening. Droplet Pen [place] 32G X 4 MM [facility] use 1 PEN NEEDLE to inject MEDICATION [...] capsule by mouth at bedtime if needed Ashley ChristopheroStar 300 UNIT/ML injection inject 20 units subcutaneously as directed [DISCONTINUED] nortriptyline (Pamelor) 50 MG capsule No facility-administered encounter medications on file as of 02/25/2024. Oz Kincaid M.D. [facility] ? [address] ? [place], [place] [address] ? ? fax Neurology ? Clinical Neurophysiology ? Epilepsy ? Sleep Disorders ? Clinical Informatics documented in this encounterAlvin J. Siteman Cancer CenterXhjbwzapwe36-09-8398 History of Present illness Narrative* Karl Fritz, BARRIE - 02/10/2024 2:00 PM EDT Images from the original note were not included. HPI: Patient presents today complaining of an ulcer on the plantar 1st met right foot. They have noticedthis for the past month (10/2023). Patient has pain with walking and standing due to this lesion. Patient has tried [facility] for treatment, x-ray, antibiotic, (not taking [...] 7. RTC: 2 weeks. documented in this encounterAlvin J. Siteman Cancer CenterCsiqgconlj92-17-9422 History of Present illness Narrative* Karl Fritz DPM - 01/27/2024 10:30 AM EDT Images from the original note were not included. HPI: Patient presents today complaining of an ulcer on the plantar 1st met right foot. They have noticedthis for the past month (10/2023). Patient has pain with walking and standing due to this lesion. Patient has tried [facility] for treatment, x-ray, antibiotic, (not taking [...] 1 week for recheck. documented in this encounterAlvin J. Siteman Cancer CenterFbymzhvyxe43-29-5576 History of Present illness Narrative* Karl Fritz [...] 1 week for recheck. documented in this encounterAlvin J. Siteman Cancer CenterKgccgvazew26-29-9408 Telephone encounter Note* Telephone Encounter - Cali Duque - 01/10/2024 2:34 PM EDT Called and spoke with Corinna twice both times got disconnected. On purpose or by accident not sure, second time Corinna was given Dr Kincaid's answer. Not sure if she got full and complete answer, but she got enough of it. Al[facility] J. Siteman Cancer CenterQiaietamxv55-08-7288 Miscellaneous Notes* Telephone Encounter - Cali Duque [...] x several days, then 300 bid Corinna [phone] documented in this encounterNOCox BransonFvrzlwdqmj00-93-8735 Telephone encounter Note* Telephone Encounter - Cali Duque - 01/08/2024 12:37 PM EDT Daughter (Corinna Ayala) called, She was talking with Taye's Nurse, They would like to know if Gabapentin would be a better option for Taye than the PGB? You just inc her PGB from 1 cap bid to 150/300 x several days, then 300 bid Corinna [phone] Al[facility]. Siteman Cancer CenterRxgkvrurjc24-32-6164 History of Present illness Narrative* Oz Kincaid [...] Restlessness well controlled. Imaging MR L-s (11/2023, [facility]) - HNP T12-L1 mild; canal sten L2-3 mod; errol sten L2-3 modB L4-5-S1 modB US LE (12/2016, [place]) - atherosclerosis, nl PVR. Testing [facility] (11/2023) - acute L S1 (nEMG) + PN pattern signif worse . . . . (03/2017, [facility]) - PN pattern Labs - V52=065/15/116/>22.3, was 359/16.7H/328/>22.3 ... 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 Continuous Blood Gluc Sensor (Surgical Theateryle Brent 14 Day Sensor) [facility] apply 1 SENSOR as directed every 14 days use with DEVICE to MONIT... (REFER TO PRESCRIPTION NOTES). cyanocobalamin (Vitamin B-12) 2500 MCG tablet Docusate Sodium (DSS) 100 MG capsule Take 100 mg by mouth in the morning and 100 mg in the evening. Droplet Pen [place] 32G X 4 MM [facility] use 1 PEN NEEDLE to inject MEDICATION [...] 01/07/2024. Oz Kincaid M.D. documented in this encounterAlvin J. Siteman Cancer CenterCghxxpgekc56-16-4253 History of Present illness Narrative* Karl Fritz, DPM - 01/07/2024 9:45 AM EDT Images [...] due to this lesion. Patient has tried [place] for treatment, x-ray, antibiotic, (not taking [...] site with sean vega. She does have [facility] and updated orders will be sent. They [...] 7. RTC: 2 weeks. documented in this encounterAlvin J. Siteman Cancer CenterQknnquaoyd31-39-2225 History of Present illness Narrative* Oz Kincaid [...] arranged Oz Kincaid M.D. documented in this encounterAlvin J. Siteman Cancer CenterQwebkhixbe14-49-4129 History of Present illness Narrative* Roland Faust MD - 12/16/2023 10:30 AM EDT Subjective [...] Attestation By signing my name below, I, Sofie Briseno LPN , Scribe attest that this documentation [...] exam, discussion and plan. documented in this encounterProMedica Bay Park Hospital Work Phone: 1(645) 790-279108-19-2024 Instructions* Patient Instructions* Sofie Dean LPN - [...] to Increase physical activity. documented in this encounterProMedica Bay Park Hospital Work Phone: 1(484) 425-799107-17-2024 History of Present illness Narrative* Jonas Ch MD - 11/13/2023 2:00 PM EDT Subjective Taye Gay is a 67 [...] Cardiology 2. Nonischemic cardiomyopathy (Multi) Resolved with amish of sinus rhythm 3. Hypercholesteremia Review of [...] exam, discussion and plan. documented in this [facility] Work Phone: 1(323) 187-200507-17-2024 Instructions* Patient Instructions* Dakota Barraza RN - [...] to Increase physical activity documented in this [facility] Work Phone: 1(660) 668-679707-15-2024 Progress note Author Chaka Frye [facility] November 11, 2023 4:15pm Note Date/Time November 11, 2023 4:15 pm [facility] [address] [place] [address] Hospitalist Progress Note Signed Patient: Taye Gay MR#: [id number] : 1955 Acct:[id number] Age/Sex: 67 / F Adm Date: 4 Loc: 4N Room: [address] [place] [address] Type: ADM IN Attending Dr: Chaka Frye [...] Dose Route Start Last Admin Trade Name Gillesq PRN Reason Stop Dose Admin Acetaminophen 650 [...] <Electronically signed by Chaka Frye MD> 11/11/23 0825 [facility] [place] [facility] Work Phone: 1([phone]) 663-192607-15-2024 Consult note Author Lit Clark [facility] November 11, 2023 3:11pm Note Date/Time November 11, 2023 10:4 3am [facility] [address] [place] [address] Neurology Consult Note Signed Patient: Taye Gay MR#: [id number] : 1955 Acct:[id number] Age/Sex: 67 / F Adm Date: 4 Loc: 4 Room: [address] [place] [address] Type: ADM IN Attending Dr: Chaka Frye MD Copies to: DO Geraldo Garrido MD, RES MD Sandra Mar, ~ HPI Consult Date: 11/11/23 Pumpman: Geraldo Vo MD, RES Reason for consult: Progressive generalized weakness Consult Narrative HPI: Taye Gay is a 67 y.o. female with a PMH of esophageal stricture, cigarette smoker, GERD, HTN, type 2 diabetes mellitus, HLD, CKD stage G2/A2, peripheral neuropathy and vit B12 deficiency who presented to [facility] on 11/10/23 for concerns regarding generalized weakness. Neurology was consulted for evaluation of generalized weakness. Additional HPI is noted in Assessment and Plan. [facility] Medical History History of esophageal stricture BMI [...] Confirmed 11/09/23] pen needle, diabetic [Sure-Fine Pen [place]] 06/12/23 [History Confirmed 11/09/23] omeprazole 20 mg capsule,delayed release See Rx Instructions .Route .COMPLEX #90caps 07/01/23 [Rx Confirmed 11/09/23] flash glucose sensor (FreeStyle Rbent 14 Day Sensor kit) #2 ea 07/22/23 [...] Oz Bowling M.D.11/10/2023 1:15 PM Dictation Location: [facility]--13 Therapy Recommendations Therapy Recommendations: OT Recommendations OT Recommended Discharge Alf Facility Location OT Recommended Services at Physical Therapy,Occupational Therapy Discharge PT Recommendations PT Recommended Discharge Alf Facility Location PT Recommended Services at Physical Therapy,Occupational Therapy Discharge Assessment/Plan (1) Ambulatory dysfunction: (2) Weakness: (3) Hypothyroid: Qualifiers: Hypothyroidism type: unspecified Qualified Code(s): E03.9 - Hypothyroidism, unspecified (4) Hypomagnesemia: (5) Type 2 diabetes mellitus with hyperglycemia: Qualifiers: Diabetes mellitus intermediate manager insulin use: unspecified intermediate manager insulin use status Qualified Code(s): E11.65 - Type 2 diabetes mellitus with hyperglycemia (6) Vitamin B 12 deficiency: Plan CONSULT REASON: Generalized weakness HPI: Taye Gay is a 67 y.o. female with a PMH of esophageal stricture, cigarette smoker, GERD, HTN, type 2 diabetes mellitus, HLD, CKD stage G2/A2, peripheral neuropathy and vit B12 deficiency who presented to [facility] on 11/10/23 for concerns regarding generalized [...] signed by MD GAGE Vo> 11/11/23 1043 [facility] [place] [facility] Work Phone: 1(620) 367-325907-14-2024 Progress note Author Kirt Renae [facility] November 10, 2023 12:24pm Note Date/Time November 10, 2023 12:0 0pm [facility] [address] [place] [address] Hospitalist Progress Note Signed Patient: Taye Gay MR#: [id number] : 1955 Acct:[id number] Age/Sex: 67 / F Adm Date: 4 Loc: 4N Room: 3G8605-4 Type: ADM IN Attending Dr: Kirt Renae [...] 09:00 11/10/23 08:45 Aspirin 81 Mg Tablet.Dr MINOR 11/09/24 08:59 81 mg DAILY PARMJIT Administration [...] ESR and CRP -Obtain anti Sushma, Anti BASE REMOVER, anti dsDNA -Obtain CT head without contrast [...] <Electronically signed by Kirt Renae MD> 11/10/23 1224 [facility] Work Phone: 1([phone] 158-737607-14-2024 History and physical note Author Jluis Campos [facility] November 10, 2023 6:20am Note Date/Time November 10, 2023 6:11 am [facility] [address] [place] [address] Hospitalist H&P Signed Patient: Taye Gay MR#: [id number] : 1955 Acct:[id number] Age/Sex: 67 / F Adm Date: 4 Loc: 4N Room: 5N9793-2 Type: ADM IN Attending Dr: Jluis Campos [...] noted below or in HPI [facility] Medical History History of esophageal stricture BMI [...] Confirmed 11/09/23] pen needle, diabetic [Sure-Fine Pen [place]] 06/12/23 [History Confirmed 11/09/23] omeprazole 20 mg [...] weaknesses were noted, patient unable to ambulate. Uykp-wu-ywsj test was normal. No tremors or ataxia with wixioi-qj-fokq movements. Neuro: AOx3, CN II-VII intact. Moves [...] % (Auto) 26.0 % (.) 11/10/23 03:41 [place] % (Auto) 8.2 % (.) 11/10/23 03:41 Eos % (Auto) 3.7 % (.) 11/10/23 03:41 Baso % (Auto) 0.9 % (.) 11/10/23 03:41 Nucleat RBC Rel Count 0.1 /100 WBC (0-0.5) 11/10/23 03:41 Neut # (Auto) 5.2 x10E3/uL (1.8-7.7) 11/10/23 03:41 Lymph # (Auto) 2.2 x10E3/uL (1.00-4.8) 11/10/23 03:41 [place] # (Auto) 0.7 x10E3/uL (0.0-0.8) 11/10/23 03:41 [...] pH 6.0 (5.0-9.0) 11/10/23 05:02 Ur Specific [place] 1.007 (1.001-1.030) 11/10/23 05:02 Urine Protein Negative [...] <Electronically signed by Jluis Campos DO> 11/10/23619 [facility] Work Phone: 1([phone]) 709-230807-09-2024 [facility] History of Present illness Narrative* Jonas Ch [...] to make adjustments and amiodarone before my long-term. Vitals: 10/07/23 0948 BP: 114/90 BP Location: [...] mellitus with other specified complication, unspecified whether intermediate insulin use (Multi) Managed by other providers [...] exam, discussion and plan. documented in this [facility] Work Phone: [phone]) 791-630606-10-2024 Instructions* Patient Instructions* Cary Mcdonnell RN - [...] Fall Prevention Education Given documented in this [facility] Work Phone: 1(441) 695-713705-18-2024 Progress note Author Faraz Gilliam [facility] September 14, 2023 1:34pm Note Date/Time September 14, 2023 1:26p m [facility] [address] [place] [address] Cardiology Progress Note Signed Patient: Taye Gay MR#: [id number] : 1955 Acct:[id number] Age/Sex: 67 / F Adm Date: 4 Loc: Room: [address] [place] [address] Type: ADM IN Attending Dr: Elva Florian [...] signed by Faraz Gilliam MD> 09/14/23 1334 [facility] Work Phone: 1([phone] 618-587605-18-2024 Progress note Author Elva Florian [facility] September 14, 2023 2:03am Note Date/Time September 13, 2023 6:15p m [facility] [address] [place] [address] Hospitalist Progress Note Signed Patient: Taye Gay MR#: [id number] : 1955 Acct:[id number] Age/Sex: 67 / F Adm Date: 4 Loc: Room: [address] [place] [address] Type: ADM IN Attending Dr: Elva Florian [...] 09/13/23 16:00 09/13/23 16:00 09/13/23 16:00 09/13/23 16:09/13/23 16:00 Narrative: GEN: Pleasant, Cooperative, Not in [...] 09/13/23 09:00 09/13/23 08:37 Aspirin 81 Mg Tablet.Dr PO 09/12/24 08:59 81 mg DAILY PARMJIT [...] Insuln.Pen SUBCUT 09/11/24 21:59 Not Given TID.WM.HS [facility] Protocol Insulin Glargine 20 units 09/13/23 09:00 [...] 15 Mg Capsule PO 03/11/24 21:59 QHS [facility] A&P - Hospitalist Assessment/Plan (1) New onset atrial flutter: (2) Atrial flutter with rapid ventricular response: (3) Type 2 diabetes mellitus: (4) Hyperlipidemia: (5) Hypertension: Plan Documented By: Elva Florian MD 09/13/23 2039 Signed By: <Electronically signed by Elva Florian MD> 09/14/23 020 [facility] Work Phone: [phone]) 418-981105-17-2024 Consult note Author Jonas Ch [facility] September 13, 2023 12:25pm Note Date/Time September 13, 2023 12:26 pm [facility] [address] [place] [address] Cardiology Consult Note Signed Patient: Taye Gay MR#: [id number] : 1955 Acct:[id number] Age/Sex: 67 / F Adm Date: 4 Loc: Room: [address] [place] [address] Type: ADM INOo Attending Dr: Elva Florian [...] additional complaints, except as documented [facility] Medical History History of esophageal stricture BMI [...] History Father Heart disease History of stroke [facility] Problem: Diagnosed with Stroke Cancer throat heart [...] Confirmed 09/12/23] pen needle, diabetic [Sure-Fine Pen [place]] 06/12/23 [History Confirmed 09/12/23] nortriptyline 50 mg [...] x10E3/uL Lymph # (Auto) 2.0 (1.00-4.8) x10E3/uL [place] # (Auto) 0.6 (0.0-0.8) x10E3/uL Eos # [...] ml @ 999 mls/hr IV .Q1H1M ONE Rx#:[id number] Oral 50 / 50 Output: Urine 600 [...] follow-up thereafter. Documented By: Jonas Ch MD 1222 Signed By: <Electronically signed by MD Jonas Ch> 09/13/23 1225 [facility] Work Phone: 1([phone] 381-379805-17-2024 History and physical note Author Elva Florian [facility] September 13, 2023 2:09am Note Date/Time September 12, 2023 7:53p m [facility] [address] [place] [address] Hospitalist H&P Signed Patient: Taye Gay MR#: [id number] : 1955 Acct:[id number] Age/Sex: 67 / F Adm Date: 4 Loc: Room: [address] [place] [address] Type: ADM INOo Attending Dr: Elva Florian [...] with:?the medical team, the patient [facility] Medical History History of esophageal stricture BMI [...] History Father Heart disease History of stroke [facility] Problem: Diagnosed with Stroke Cancer throat [...] conc 300 unit/mL (1.5 mL) subcutaneous pen ([employer] SoloStar U-300 Insulin) 20 unit subcut DAILY 06/12/23 [History Confirmed 09/12/23] insulin lispro 100 unit/mL subcutaneous pen See Rx Instructions subcut ACHS 06/12/23 [History Confirmed 09/12/23] multivitamin 1 tab PO DAILY 06/12/23 [History Confirmed 09/12/23] pen needle, diabetic [Sure-Fine Pen [place]] 06/12/23 [History Confirmed 09/12/23] nortriptyline 50 mg [...] % (Auto) 20.2 % (.) 09/12/23 14:51 [place] % (Auto) 5.9 % (.) 09/12/23 14:51 Eos % (Auto) 1.7 % (.) 09/12/23 14:51 Baso % (Auto) 0.9 % (.) 09/12/23 14:51 Nucleat RBC Rel Count 0.2 /100 WBC (0-0.5) 09/12/23 14:51 Neut # (Auto) 7.0 x10E3/uL (1.8-7.7) 09/12/23 14:51 Lymph # (Auto) 2.0 x10E3/uL (1.00-4.8) 09/12/23 14:51 [place] # (Auto) 0.6 x10E3/uL (0.0-0.8) 09/12/23 14:51 [...] <Electronically signed by Elva Florian MD> 09/13/23208 [facility] Work Phone: [phone] 422-305202-12-2024 Evaluation note* Encounter Date Diagnosis Assessment Notes Treatment Notes Treatment Clinical Notes May, Type 2 diabetes mellitus with hyperglycemia (ICD-10 - E11.65) [facility] 01-23-2024 Evaluation note* Encounter Date Diagnosis Assessment Notes Treatment Notes Treatment Clinical Notes Apr, Primary insomnia (ICD-10 - F51.01) [facility] Other 12-11-2023 Evaluation note* Encounter Date Diagnosis Assessment Notes Treatment Notes Treatment Clinical Notes Mar, Type 2 diabetes mellitus with hyperglycemia (ICD-10 - E11.65) [facility] Other 11-06-2023 Evaluation note* Encounter Date Diagnosis [...] Discussed can start famotidine PRN breakthrough GERD [facility] 10-02-2023 Evaluation note* Encounter Date Diagnosis Assessment Notes Treatment Notes Treatment Clinical Notes Jan, Primary insomnia (ICD-10 - F51.01) [facility] Other 09-11-2023 Evaluation note* Encounter Date Diagnosis Assessment Notes Treatment Notes Treatment Clinical Notes Dec, Type 2 diabetes mellitus with hyperglycemia (ICD-10 - E11.65) Managing type 2 diabetes material was published 1. Controlled, Type 2 diabetes with A1c 6.3% 2. Blood glucose levels improved. According to [employer] cgm download 12/25/2022- 3: Avg glucose 156. 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, rn long term care current use of insulin (ICD-10 - Z79.4) [...] to make it easier material was published [facility] Other 09-06-2023 Evaluation note* Encounter Date Diagnosis Assessment Notes Treatment Notes Treatment Clinical Notes Dec, Esophageal stricture (ICD-10 - K22.2) Dec, Dysphagia (ICD-10 - R13.10) Patient has a narrow esophagus but is improving Patient is to continue omeprazole daily [facility] Other 09-01-2023 Evaluation note* Encounter Date Diagnosis Assessment Notes Treatment Notes Treatment Clinical Notes Dec, Primary insomnia (ICD-10 - F51.01) [facility] Other 08-22-2023 Evaluation note* Encounter Date Diagnosis Assessment Notes Treatment Notes Treatment Clinical Notes Nov, Primary insomnia (ICD-10 - F51.01) [facility] Other 08-02-2023 Evaluation note* Encounter Date Diagnosis [...] 3 months for recheck Nov, Other Personalized alth advice was given to the beneficiary including a written plan for screenings discussed and provided. Advanced care planning reviewed and/or information given as requested. Additional counseling was provided here today in regards to, [ ]. The above visit was performed by Loren PICKARD under direct supervision of Dr. Sandra Keita DO. Document reviewed and amended by provider signed below. [facility] Other 07-11-2023 Evaluation note* Encounter Date Diagnosis Assessment Notes Treatment Notes Treatment Clinical Notes Oct, Primary insomnia (ICD-10 - F51.01) [facility] Other 06-01-2023 Evaluation note* Encounter Date Diagnosis Assessment Notes Treatment Notes Treatment Clinical Notes Sep, Type 2 diabetes mellitus with hyperglycemia (ICD-10 - E11.65) Managing type 2 diabetes material was published 1. Controlled, Type 2 diabetes with A1c 6.6% 2. Blood glucose levels improved. According to [employer] cgm download 09/13/2022- 3: Avg glucose 151. 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, long-term current use of insulin (ICD-10 - Z79.4) Sep, Peripheral neuropathy (ICD-10 - G62.9) Living with peripheral neuropathy material was published Sep, Vitamin B 12 deficiency (ICD-10 - E53.8) Good food sources of vitamin B12 material was published 08/2022 Vit b12 392 at target Sep, BMI 29.0-29.9,adult (ICD-10 - Z68.29) Eating healthy: tips to make it easier material was published [facility] Other 05-15-2023 Evaluation note* Encounter Date Diagnosis Assessment Notes Treatment Notes Treatment Clinical Notes August, Primary hypertension (ICD-10 - I10) August, Type 2 diabetes mellitus with hyperglycemia (ICD-10 - E11.65) [facility] Other 04-13-2023 Evaluation note* Encounter Date Diagnosis [...] Due for LDCT for lung CA screening [facility] Other 04-10-2023 Evaluation note* Encounter Date Diagnosis Assessment Notes Treatment Notes Treatment Clinical Notes Jul, Primary insomnia (ICD-10 - F51.01) [facility] Other 03-08-2023 Evaluation note* Encounter Date Diagnosis Assessment Notes Treatment Notes Treatment Clinical Notes Jun, Primary insomnia (ICD-10 - F51.01) [facility] Other 02-21-2023 Evaluation note* Encounter Date Diagnosis Assessment Notes Treatment Notes Treatment Clinical Notes May, Type 2 diabetes mellitus with hyperglycemia (ICD-10 - E11.65) [facility] Other 02-20-2023 Evaluation note* Encounter Date Diagnosis Assessment Notes Treatment Notes Treatment Clinical Notes May, Type 2 diabetes mellitus with hyperglycemia (ICD-10 - E11.65) Managing type 2 diabetes material was published 1. Uncontrolled, Type 2 diabetes with A1c 7.1% 2. Blood glucose levels improved. According to [employer] cgm download 06/04/2022-06/17/2022 : Avg glucose 180. [...] hypertension material was published on [employer] May, long-term current use of insulin (ICD-10 - Z79.4) May, Peripheral neuropathy (ICD-10 - G62.9) Living with peripheral neuropathy material was published May, Vitamin B 12 deficiency (ICD-10 - E53.8) Good food sources of vitamin B12 material was published 08/2021 Vit b12 368 at target May, BMI 35.0-35.9,adult (ICD-10 - Z68.35) Setting weight-loss goals material was published [facility] Other 02-06-2023 Evaluation note* Encounter Date Diagnosis Assessment Notes Treatment Notes Treatment Clinical Notes May, Primary insomnia (ICD-10 - F51.01) [facility] Other 01-26-2023 Evaluation note* Encounter Date Diagnosis Assessment Notes Treatment Notes Treatment Clinical Notes Apr, Hyperlipidemia (ICD-10 - E78.5) [facility] Other 12-06-2022 Evaluation note* Encounter Date Diagnosis Assessment Notes Treatment Notes Treatment Clinical Notes Mar, Type 2 diabetes mellitus with hyperglycemia (ICD-10 - E11.65) [facility] Other 10-19-2022 Evaluation note* Encounter Date Diagnosis Assessment Notes Treatment Notes Treatment Clinical Notes Jan, Primary hypertension (ICD-10 - I10) [facility] Other 09-13-2022 Evaluation note* Encounter Date Diagnosis Assessment Notes Treatment Notes Treatment Clinical Notes Dec, Type 2 diabetes mellitus with hyperglycemia (ICD-10 - E11.65) Managing type 2 diabetes material was published 1. Uncontrolled, Type 2 diabetes with A1c 7.7% 2. Blood glucose levels above target. According to [employer] cgm download 12/26/2021- 2: Avg glucose 211. [...] toujeo x1 pen given. Sent order for [employer] to [employer]. Dec, Dietary counseling and surveillance (ICD-10 - Z71.3) Eat well, exercise well, be well: dietary and fitness guidelines material was published Dec, Hyperlipidemia (ICD-10 - E78.5) Managing your cholesterol material was published 08/2021 ldl 68- at target. 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, long-term current use of insulin (ICD-10 - Z79.4) [...] last visit, continue with weight loss efforts [facility] 08-17-2022 Progress note Author Walter Montgomery [facility] December 13, 2021 8:52am Note Date/Time December 13, 2021 8: 52am [facility] [address] [place] [address] General Surgery Progress Note Signed Patient: Taye Gay MR#: [id number] : 1955 Acct:[id number] Age/Sex: 66 / F Adm Date: 2 Loc: Room: [address] [place] [address] Type: ADM INOo Attending Dr: Wilmer Vance [...] 81 Mg Tablet.) 81 mg PO DAILY [facility] Stop: 12/10/22 08:59 Last Admin: 12/12/21 10:33 Dose: Not Given Atorvastatin Calcium (Atorvastatin 10 Mg Tablet) 10 mg PO DAILY PARMJIT Stop: 12/10/22 08:59 Last Admin: 12/12/21 10:33 Dose: Not Given Cyanocobalamin (Cyanocobalamin 1,000 Mcg Tablet) 1,000 mcg PO DAILY [facility] Stop: 12/13/22 08:59 Dextrose (Dextrose 50% In Water 25 Gm/50 Ml Syringe) 0 gm IV-PUSH PRN PRN PRN Reason: Hypoglycemia Stop: 12/09/22 11:18 Docusate Sodium (Docusate 100 Mg Capsule) 100 mg PO TID [facility] Stop: 12/12/22 21:59 Last Admin: 12/12/21 22:26 Dose: 100 mg Enoxaparin Sodium (Enoxaparin 40 Mg/0.4 Ml Syringe) 40 mg SUBCUT DAILY@10 [facility] Stop: 12/10/22 09:59 Last Admin: 12/12/21 10:33 [...] 50 mls @ 100 mls/hr IV Q24H [facility] Last Admin: 12/12/21 11:57 Dose: 100 mls/hr Sodium Chloride (0.9% Sodium Chloride 1,000 Ml) 1,000 mls @ 100 mls/hr IV .[id number] Stop: 12/12/22 00:00 Last Infusion: 12/13/21 03:35 Dose: Infused Lactated Ringer's (Lactated Ringers) 1,000 mls @ 20 mls/hr IV .Q24H ONE Stop: 12/13/21 11:13 Last Infusion: 12/13/21 03:31 Dose: Infused Insulin Aspart (Insulin Aspart 300 Units/3 Ml Insuln.Pen) 0 units SUBCUT TID.WM[facility]; Protocol Stop: 12/09/22 11:59 Last Admin: 12/13/21 08:07 Dose: 4 units Nortriptyline HCl (Nortriptyline 25 Mg Capsule) 50 mg PO BID [facility] Stop: 12/09/22 20:59 Last Admin: 12/12/21 22:27 Dose: 50 mg Omeprazole (Omeprazole 20 Mg Capsule.Dr) 20 mg PO DAILY [facility] Stop: 12/10/22 08:59 Last Admin: 12/12/21 10:33 Dose: Not Given Ondansetron HCl (Ondansetron 4 Mg/2 Ml Vial) 4 mg IV-PUSH Q6H PRN PRN Reason: Nausea And Vomiting Stop: 12/12/22 18:19 Pioglitazone HCl (Pioglitazone 15 Mg Tablet) 15 mg PO DAILY [facility] Stop: 12/10/22 08:59 Last Admin: 12/12/21 10:33 [...] % (Auto) 90.4, Lymph % (Auto) 7.7, [place] % (Auto) 1.8, Eos % (Auto) 0.0, Baso % (Auto) 0.1, Neut # (Auto) 8.5 H, Lymph # (Auto) 0.7 L, [place] # (Auto) 0.2, Eos # (Auto) 0.0, [...] % (Auto) 72.7, Lymph % (Auto) 16.1, [place] % (Auto) 8.8, Eos % (Auto) 2.1, Baso % (Auto) 0.3, Neut # (Auto) 5.3, Lymph # (Auto) 1.2, [place] # (Auto) 0.6, Eos# (Auto) 0.2, Baso [...] % (Auto) 66.8, Lymph % (Auto) 21.0, [place] % (Auto) 9.2, Eos % (Auto) 2.6, Baso % (Auto) 0.4, Neut # (Auto) 4.1, Lymph # (Auto) 1.3, [place] # (Auto) 0.6, Eos # (Auto) 0.2, [...] signed by DO Walter Montgomery> 12/13/21 0852 [facility] Work Phone: [phone] 325-892908-16-2022 Progress note Author Teresa Strong [facility] December 12, 2021 8:43pm Note Date/Time December 12, 2021 2: 49pm [facility] [address] [place] [address] Urology Progress Note Signed Patient: Taye Gay MR#: [id number] : 1955 Acct:[id number] Age/Sex: 66 / F Adm Date: 2 Loc: Room: [address] [place] [address] Type: ADM INOo Attending Dr: Arleen Stephen [...] % (Auto) 72.7, Lymph % (Auto) 16.1, [place] % (Auto) 8.8, Eos % (Auto) 2.1, Baso % (Auto) 0.3, Neut # (Auto) 5.3, Lymph # (Auto) 1.2, [place] # (Auto) 0.6, Eos# (Auto) 0.2, Baso [...] % (Auto) 66.8, Lymph % (Auto) 21.0, [place] % (Auto) 9.2, Eos % (Auto) 2.6, Baso % (Auto) 0.4, Neut # (Auto) 4.1, Lymph # (Auto) 1.3, [place] # (Auto) 0.6, Eos # (Auto) 0.2, [...] <Electronically signed by Teresa Strong MD> 12/12/212042 [facility] Work Phone: [phone] 162-116908-16-2022 Progress note Author Arleen Stephen [facility] December 12, 2021 1:20pm Note Date/Time December 12, 2021 1: 20pm [facility] [address] [place] [address] Hospitalist Progress Note Signed Patient: Taye Gay MR#: [id number] : 1955 Acct:[id number] Age/Sex: 66 / F Adm Date: 2 Loc: Room: [address] [place] [address] Type: ADM INOo Attending Dr: Arleen Stephen [...] 12/10/21 09:00 12/12/21 10:33 Aspirin 81 Mg Tablet.Dr PO 12/10/22 08:59 Not Given DAILY PARMJIT [...] Insuln.Pen SUBCUT 12/09/22 11:59 Not Given TID.WM.HS [facility] Protocol Lidocaine HCl 0.1 ml 12/12/21 11:14 [...] prophylaxis Documented By: Arleen Stephen MD 12/12/21 1312 Signed By: <Electronically signed by Arleen Stephen MD> 12/12/21 1321 [facility] Work Phone: [phone] 413-698208-16-2022 Progress note Author Walter Montgomery [facility] December 12, 2021 8:07am Note Date/Time December 12, 2021 8: 07am [facility] [address] [place] [address] General Surgery Progress Note Signed Patient: Taye Gay MR#: [id number] : 1955 Acct:[id number] Age/Sex: 66 / F Adm Date: 2 Loc: Room: [address] [place] [address] Type: ADM INOo Attending Dr: Arleen Stephen [...] 81 Mg Tablet.) 81 mg PO DAILY [facility] Stop: 12/10/22 08:59 Last Admin: 12/11/21 08:00 Dose: 81 mg Atorvastatin Calcium (Atorvastatin 10 Mg Tablet) 10 mg PO DAILY [facility] Stop: 12/10/22 08:59 Last Admin: 12/11/21 08:00 Dose: 10 mg Dextrose (Dextrose 50% In Water 25 Gm/50 Ml Syringe) 0 gm IV-PUSH PRN PRN PRN Reason: Hypoglycemia Stop: 12/09/22 11:18 Enoxaparin Sodium (Enoxaparin 40 Mg/0.4 Ml Syringe) 40 mg SUBCUT DAILY@10 [facility] Stop: 12/10/22 09:59 Last Admin: 12/11/21 09:19 [...] Ml) 1,000 mls @ 100 mls/hr IV .[id number] Stop: 12/12/22 00:00 Last Admin: 12/12/21 00:10 Dose: 100 mls/hr Insulin Aspart (Insulin Aspart 300 Units/3 Ml Insuln.Pen) 0 units SUBCUT TID.[facility]; Protocol Stop: 12/09/22 11:59 Last Admin: 12/11/21 21:21 Dose: 3 units Nortriptyline HCl (Nortriptyline 25 Mg Capsule) 50 mg PO BID [facility] Stop: 12/09/22 20:59 Last Admin: 12/11/21 21:20 Dose: 50 mg Omeprazole (Omeprazole 20 Mg Capsule.Dr) 20 mg PO DAILY [facility] Stop: 12/10/22 08:59 Last Admin: 12/11/21 08:00 Dose: 20 mg Ondansetron HCl (Ondansetron 4 Mg/2 Ml Vial) 4 mg IV-PUSH Q8H PRN PRN Reason: Nausea And Vomiting Stop: 12/09/22 11:18 Pioglitazone HCl (Pioglitazone 15 Mg Tablet) 15 mg PO DAILY [facility] Stop: 12/10/22 08:59 Last Admin: 12/11/21 08:00 [...] 15 Mg Capsule) 30 mg PO QHS [facility] Stop: 12/09/22 21:59 Last Admin: 12/11/21 21:20 [...] % (Auto) 66.8, Lymph % (Auto) 21.0, [place] % (Auto) 9.2, Eos % (Auto) 2.6, Baso % (Auto) 0.4, Neut # (Auto) 4.1, Lymph # (Auto) 1.3, [place] # (Auto) 0.6, Eos # (Auto) 0.2, [...] Status: Acute Documented By: Walter Montgomery DO 12/12/21 08 Signed By: <Electronically signed by DO Walter Montgomery> 12/12/21 0807 [facility] Work Phone: [phone] Consult note Author Teresa Strong [facility] December 11, 2021 9:25pm Note Date/Time December 11, 2021 8: 10pm [facility] [address] [place] [address] Urology Consult Note Signed Patient: Taye Gay MR#: [id number] : 1955 Acct:[id number] Age/Sex: 66 / F Adm Date: 2 Loc: Room: [address] [place] [address] Type: ADM INOo Attending Dr: Arleen Stephen [...] % (Auto) 66.8, Lymph % (Auto) 21.0, [place] % (Auto) 9.2, Eos % (Auto) 2.6, Baso % (Auto) 0.4, Neut # (Auto) 4.1, Lymph # (Auto) 1.3, [place] # (Auto) 0.6, Eos # (Auto) 0.2, [...] % (Auto) 63.3, Lymph % (Auto) 24.1, [place] % (Auto) 10.5, Eos % (Auto) 1.8, Baso % (Auto) 0.3, Neut # (Auto) 4.7, Lymph # (Auto) 1.8, [place] # (Auto) 0.8, Eos # (Auto) 0.1, [...] <Electronically signed by Teresa Strong MD> 12/11/21 0891 [facility] Work Phone: [phone] Consult note Author Walter Montgomery [facility] December 11, 2021 3:18pm Note Date/Time December 11, 2021 3: 18pm [facility] [address] [place] [address] General Surgery Consult Note Signed Patient: Taye Gay MR#: [id number] : 1955 Acct:[id number] Age/Sex: 66 / F Adm Date: 2 Loc: Room: [address] [place] [address] Type: ADM INOo Attending Dr: Arleen Stephen [...] 12/09/21] insulin lispro 100 unit/mL subcutaneous pen ([facility] SoloStar U-100 Insulin lispro) 1 sliding scale [...] 81 Mg Tablet.) 81 mg PO DAILY [facility] Stop: 12/10/22 08:59 Last Admin: 12/11/21 08:00 [...] 50 mls @ 100 mls/hr IV Q24H [facility] Last Infusion: 12/11/21 10:15 Dose: Infused Insulin Aspart (Insulin Aspart 300 Units/3 Ml Insuln.Pen) 0 units SUBCUT TID.[facility]; Protocol Stop: 12/09/22 11:59 Last Admin: 12/11/21 11:33 Dose: 3 units Nortriptyline HCl (Nortriptyline 25 Mg Capsule) 50 mg PO BID [facility] Stop: 12/09/22 20:59 Last Admin: 12/11/21 08:00 Dose: 50 mg Omeprazole (Omeprazole 20 Mg Capsule.Dr) 20 mg PO DAILY [facility] Stop: 12/10/22 08:59 Last Admin: 12/11/21 08:00 Dose: 20 mg Ondansetron HCl (Ondansetron 4 Mg/2 Ml Vial) 4 mg IV-PUSH Q8H PRN PRN Reason: Nausea And Vomiting Stop: 12/09/22 11:18 Pioglitazone HCl (Pioglitazone 15 Mg Tablet) 15 mg PO DAILY [facility] Stop: 12/10/22 08:59 Last Admin: 12/11/21 08:00 [...] 15 Mg Capsule) 30 mg PO QHS [facility] Stop: 12/09/22 21:59 Last Admin: 12/10/21 21:14 [...] % (Auto) 66.8, Lymph % (Auto) 21.0, [place] % (Auto) 9.2, Eos % (Auto) 2.6, Baso % (Auto) 0.4, Neut # (Auto) 4.1, Lymph # (Auto) 1.3, [place] # (Auto) 0.6, Eos# (Auto) 0.2, Baso [...] % (Auto) 63.3, Lymph % (Auto) 24.1, [place] % (Auto) 10.5, Eos % (Auto) 1.8, Baso % (Auto) 0.3, Neut # (Auto) 4.7, Lymph # (Auto) 1.8, [place] # (Auto) 0.8, Eos # (Auto) 0.1, [...] % (Auto) 79.8, Lymph % (Auto) 9.6, [place] % (Auto) 9.1, Eos % (Auto)1.1, Baso % (Auto) 0.4, Neut # (Auto) 10.3 H, Lymph # (Auto) 1.2, [place] # (Auto) 1.2 H, Eos # (Auto) 0.1, Baso # (Auto) 0.1, Nucleated RBC % (auto) 0.0 12/09/21 08:35: Urine Color Yellow, Urine Appearance Cloudy A, Urine pH 5.5, Ur Specific [place] 1.030, Urine Protein Negative, Urine Glucose (UA) [...] <Electronically signed by DO Walter Montgomery> 12/11/21 [facility] Work Phone: [phone] Progress note Author Arleen Stephen [facility] [facility] December 11, 2021 1:33pm Note Date/Time December 11, 2021 1: 30pm [facility] [address] [place] [address] Hospitalist Progress Note Signed Patient: Taye Gay MR#: [id number] : 1955 Acct:[id number] Age/Sex: 66 / F Adm Date: 2 Loc: Room: [address] [place] [address] Type: ADM INOo Attending Dr: Arleen Stephen [...] Dose Route Start Last Admin Trade Name Gillesq PRN Reason Stop Dose Admin Acetaminophen 650 [...] 09:00 12/11/21 08:00 Omeprazole [address] MINOR 12/10/22 08:59 20 mg DAILY PARMJIT Administration [...] <Electronically signed by Arleen Stephen MD> 12/11/21 1337 [facility] Work Phone: 1(368) 719-622608-14-2022 Progress note Author Arleen Stephen [facility] December 10, 2021 11:26am Note Date/Time December 10, 2021 11 :26am [facility] [address] [place], [place] [id number] Hospitalist Progress Note Signed Patient: Taye Gay MR#: [id number] : 1955 Acct:[id number] Age/Sex: 66 / F Adm Date: 2 Loc: Room: [address] [place] [address] Type: ADM IN Attending Dr: Arleen Stephen [...] 1,000 Ml IV 12/09/22 11:29 75 mls/hr .[id number] PARMJIT Administration Ceftriaxone Sodium 1 gm in [...] DVT prophylaxis Documented By: Arleen Stephen MD 12/10/21 1124 Signed By: <Electronically signed by Arleen Stephen MD> 12/10/21 1126 [facility] Work Phone: 1(368) 535-970708-13-2022 History and physical note Author Arleen Stephen [facility] December 09, 2021 11:38am Note Date/Time December 09, 2021 11 :38am [facility] [address] [place] [address] Hospitalist H&P Signed Patient: Taye Gay MR#: [id number] : 1955 Acct:[id number] Age/Sex: 66 / F Adm Date: 2 Loc: ER Room: Type: [facility] ER Attending Dr: Copies to: NON STAFF [...] 02/09/21] insulin lispro 100 unit/mL subcutaneous pen ([facility] SoloStar U-100 Insulin lispro) 1 sliding scale [...] % (Auto) 9.6 % (.) 12/09/21 08:50 [place] % (Auto) 9.1 % (.) 12/09/21 08:50 Eos % (Auto) 1.1 % (.) 12/09/21 08:50 Baso % (Auto) 0.4 % (.) 12/09/21 08:50 Neut # (Auto) 10.3 x10E3/uL (1.8-7.7) H 12/09/21 08:50 Lymph # (Auto) 1.2 x10E3/uL (1.00-4.8) 12/09/21 08:50 [place] # (Auto) 1.2 x10E3/uL (0.0-0.8) H 12/09/21 [...] pH 5.5 (5.0-9.0) 12/09/21 08:35 Ur Specific [place] 1.030 (1.001-1.030) 12/09/21 08:35 Urine Protein Negative [...] signed by Arleen Stephen MD> 12/09/21 1138 [facility] Work Phone: 1(241) 230-322006-16-2022 Evaluation note* Encounter Date Diagnosis Assessment Notes Treatment Notes Treatment Clinical Notes Sep, Medicare annual wellness visit, initial (ICD-10 - Z00.00) Personalized health advice was given to the beneficiary including a written plan for screenings discussed and provided. Advanced care planning reviewed and/or information given as requested. The above visit was performed by Loren Denise LPN, IV-SHERRELL, under direct supervision of Dr. Crispin Looney DO. Document reviewed and amended by provider signed below. Patient denies any complaints or concerns today. Denies any symptoms of shortness of breath, chest pains, palpitations. Reports good exercise tolerance overall. She does see [facility] diabetes clinic for management of her diabetes [...] to get her started back on this. [employer] Other 03-14-2022 Evaluation note* Encounter Date Diagnosis Assessment Notes Treatment Notes Treatment Clinical Notes Jun, Type 2 diabetes mellitus with hyperglycemia (ICD-10 - E11.65) Managing type 2 diabetes material was published 1. Controlled, Type 2 diabetes with A1c 6% 2. Blood glucose levels improved. According to [employer] cgm download 06/26/2021- 2: Avg glucose 132. [...] to ask: hypertension material was published Jun, long-term current use of insulin (ICD-10 - Z79.4) [...] (ICD-10 - L84) f/u with Dr. Limon [facility] Other 03-07-2022 Evaluation note* Encounter Date Diagnosis [...] apnea would also be evaluated if needed [employer] Other 01-10-2022 Evaluation note* Encounter Date Diagnosis [...] Reglan to see how she does. Apr, rn long term care (current) use of insulin (ICD-10 - Z79.4) Apr, Other Patient sees Dr Kenisha Castro and is up-to-date on Paps and mammograms. She did have a colonoscopy done 5 years ago and states it was normal and she is due in 5 more years. I discussed other preventative measures such as vaccines but the patient is not at all interested in any vaccines. [employer] Other 12-14-2021 Evaluation note* Encounter Date Diagnosis Assessment Notes Treatment Notes Treatment Clinical Notes Mar, Type 2 diabetes mellitus with hyperglycemia (ICD-10 - E11.65) [employer] Other 12-06-2021 Evaluation note* Encounter Date Diagnosis [...] Pain in left leg (ICD-10 - M79.605) [employer] Other 11-29-2021 Evaluation note* Encounter Date Diagnosis Assessment Notes Treatment Notes Treatment Clinical Notes Feb, Type 2 diabetes mellitus with hyperglycemia (ICD-10 - E11.65) Managing type 2 diabetes material was published 1. Controlled, Type 2 diabetes with A1c 6.9% 2. Blood glucose levels according to [employer] cgm download 03/14/2021- 021: Avg glucose 167. [...] issues. 6. Prescriptions: Admelog/ozempic sent to [facility]. Feb, Dietary counseling and surveillance (ICD-10 - Z71.3) Eat well, exercise well, be well: dietary and fitness guidelines material was published Feb, Hyperlipidemia (ICD-10 - E78.5) Managing your cholesterol material was published 11/2020 ldl 86, trig. 201. On statin Feb, HTN (hypertension) (ICD-10 - I10) Qs to ask: hypertension material was published [employer]. Feb, long-term current use of insulin (ICD-10 - Z79.4) [...] eating on a budget material was published [employer] Other 11-01-2021 Evaluation note* Encounter Date Diagnosis [...] in her feet sounds neurologic in origin. [employer] Other Chief complaint+Reason for visit Narrative* Reason for Visit [id number] Dietary counseling and surveillance Hyperlipidemia Hypertension Insulin long-term use Peripheral neuropathy Type 2 diabetes mellitus Vitamin B 12 deficiency [facility] Work Phone: Consult note Author Walter Montgomery [facility] December 11, 2021 3:18pm Note Date/Time December 11, 2021 3: 18pm [facility] [address] [place] [address] General Surgery Consult Note Signed Patient: Taye Gay MR#: [id number] : 1955 Acct:[id number] Age/Sex: 66 / F Adm Date: 2 Loc: Room: [address] [place] [address] Type: ADM INOo Attending Dr: Arleen Stephen [...] 12/09/21] insulin lispro 100 unit/mL subcutaneous pen ([facility] SoloStar U-100 Insulin lispro) 1 sliding scale [...] 81 Mg Tablet.) 81 mg PO DAILY [facility] Stop: 12/10/22 08:59 Last Admin: 12/11/21 08:00 Dose: 81 mg Atorvastatin Calcium (Atorvastatin 10 Mg Tablet) 10 mg PO DAILY [facility] Stop: 12/10/22 08:59 Last Admin: 12/11/21 08:00 [...] 50 mls @ 100 mls/hr IV Q24H [facility] Last Infusion: 12/11/21 10:15 Dose: Infused Insulin Aspart (Insulin Aspart 300 Units/3 Ml Insuln.Pen) 0 units SUBCUT TID.WM.HS [facility]; Protocol Stop: 12/09/22 11:59 Last Admin: 12/11/21 11:33 Dose: 3 units Nortriptyline HCl (Nortriptyline 25 Mg Capsule) 50 mg PO BID [facility] Stop: 12/09/22 20:59 Last Admin: 12/11/21 08:00 Dose: 50 mg Omeprazole (Omeprazole 20 Mg Capsule.Dr) 20 mg PO DAILY [facility] Stop: 12/10/22 08:59 Last Admin: 12/11/21 08:00 Dose: 20 mg Ondansetron HCl (Ondansetron 4 Mg/2 Ml Vial) 4 mg IV-PUSH Q8H PRN PRN Reason: Nausea And Vomiting Stop: 12/09/22 11:18 Pioglitazone HCl (Pioglitazone 15 Mg Tablet) 15 mg PO DAILY [facility] Stop: 12/10/22 08:59 Last Admin: 12/11/21 08:00 Dose: 15 mg Potassium Chloride (Potassium Chloride Er 20 Meq Tab.Er.Prt) 40 meq PO DAILY PRN PRN Reason: Hypokalemia Stop: 08/13/23 11:18 Sodium Chloride (Sodium Chloride 0.9 % [...] % (Auto) 66.8, Lymph % (Auto) 21.0, [place] % (Auto) 9.2, Eos % (Auto) 2.6, Baso % (Auto) 0.4, Neut # (Auto) 4.1, Lymph # (Auto) 1.3, [place] # (Auto) 0.6, Eos# (Auto) 0.2, Baso [...] % (Auto) 63.3, Lymph % (Auto) 24.1, [place] % (Auto) 10.5, Eos % (Auto) 1.8, Baso % (Auto) 0.3, Neut # (Auto) 4.7, Lymph # (Auto) 1.8, [place] # (Auto) 0.8, Eos # (Auto) 0.1, [...] % (Auto) 79.8, Lymph % (Auto) 9.6, [place] % (Auto) 9.1, Eos % (Auto)1.1, Baso % (Auto) 0.4, Neut # (Auto) 10.3 H, Lymph # (Auto) 1.2, [place] # (Auto) 1.2 H, Eos # (Auto) 0.1, Baso # (Auto) 0.1, Nucleated RBC % (auto) 0.0 12/09/21 08:35: Urine Color Yellow, Urine Appearance Cloudy A, Urine pH 5.5, Ur Specific [place] 1.030, Urine Protein Negative, Urine Glucose (UA) [...] Status: Acute Documented By: Walter Montgomery DO 12/11/21 1512 Signed By: <Electronically signed by DO Walter Montgomery> 12/11/21 1518 [facility] Work Phone: Consult note Author Teresa Strong [facility] December 11, 2021 9:25pm Note Date/Time December 11, 2021 8: 10pm [facility] [address] [place], [place] [id number] Urology Consult Note Signed Patient: Taye Gay MR#: [id number] : 1955 Acct:[id number] Age/Sex: 66 / F Adm Date: 2 Loc: Room: [address] [place] [address] Type: ADM INOo Attending Dr: Arleen Stephen [...] % (Auto) 66.8, Lymph % (Auto) 21.0, [place] % (Auto) 9.2, Eos % (Auto) 2.6, Baso % (Auto) 0.4, Neut # (Auto) 4.1, Lymph # (Auto) 1.3, [place] # (Auto) 0.6, Eos # (Auto) 0.2, [...] % (Auto) 63.3, Lymph % (Auto) 24.1, [place] % (Auto) 10.5, Eos % (Auto) 1.8, Baso % (Auto) 0.3, Neut # (Auto) 4.7, Lymph # (Auto) 1.8, [place] # (Auto) 0.8, Eos # (Auto) 0.1, [...] <Electronically signed by Teresa Strong MD> 12/11/212124 [facility] Work Phone: Consult note Author Lit Clark [facility] Note Date/Time April 29, 2024 11 :07am [facility] [address] [place] [address] Neurology Consult Note Signed Patient: Taye Gay MR#: [id number] : 1955 Acct:[id number] Age/Sex: 68 / F Adm Date: 4 Loc: 3T Room: [address] [place] [address] Type: ADM IN Attending Dr: Priscilla Lang MD Copies to: DO Sandra Garrido DO Rafik Massouh, MD~ HPI Consult Date: 04/29/24 [place]: Lit Clark DO Reason for consult: Slurred [...] noted below or in HPI [facility] Medical History BMI 32.0-32.9,adult Abnormal thyroid blood [...] (Stool Softener) 100 mg PO DAILY PRN [id number]/14/24 [History Confirmed 04/28/24] multivitamin 1 tab PO DAILY 06/12/23 [History Confirmed 04/28/24] pen needle, diabetic [Sure-Fine Pen [place]] 06/12/23 [History Confirmed 04/28/24] metformin 500 mg [...] Oz Bowling M.D.04/28/2024 9:46 PM Dictation Location: [place] [address] 04/28/24 19:44 IMPRESSION: No acute intracranial pathology. No evidence of focal stenosis, aneurysmal dilatation, dissection or occlusion. Impression dictated by: Oz Bowling M.D.04/28/2024 9:44 PM Dictation Location: [place] [address] Assessment/Plan (1) Atrial fibrillation: Qualifiers: Atrial fibrillation [...] may be metabolic in nature and not employee representative necessarily of transient ischemia or of [...] follow. Documented By: Lit Clark DO [id number] Signed By: <Electronically signed by Lit Clark DO> 04/29/[address] [place] [address] Ctr Work Phone: Discharge summary Author Wilmer Vance [facility] December 13, 2021 1:58pm Note Date/Time December 13, 2021 1: 58pm [facility] [address] [place] [address] Discharge Summary Signed Patient: Taye Gay MR#: [id number] : 1955 Acct:[id number] Age/Sex: 66 / F Adm Date: 2 Loc: Room: [address] [place] [address]: Wilmer Vance MD Copies to: [...] Cholecystectomy with ICG (Left) - Walter Montgomery, Diagnostic Studies Completed and Pending Studies Pending [...] % (Auto) 90.4, Lymph % (Auto) 7.7, [place] % (Auto) 1.8, Eos % (Auto) 0.0, Baso % (Auto) 0.1, Neut # (Auto) 8.5 H, Lymph # (Auto) 0.7 L, [place] # (Auto) 0.2,Eos # (Auto) 0.0, Baso [...] scheduled appointment Instructions: Cholecystectomy, Laparoscopic Surgery, Acetaminophen, Cefuroxime,[facility] Catheter Care at Home [...] <Electronically signed by Wilmer Vance MD> 12/13/21 4440 [facility] Work Phone: Discharge summary Author Elva Florian [facility] September 15, 2023 1:17am Note Date/Time September 14, 2023 2:20p m [facility] [address] [place] [address] Discharge Summary Signed Patient: Taye Gay MR#: [id number] : 1955 Acct:[id number] Age/Sex: 67 / F Adm Date: 4 Loc: Room: [address] [place] [address]: Elva Florian MD Copies to: [...] .Route (DME) pen needle, diabetic [Sure-Fine Pen [place]] .Route (DME) FreeStyle Brent 14 Day Sensor [...] signed by Elva Florian MD> 09/15/23 0117 [facility] Work Phone: Discharge summary Author Priscilla Lang [facility] Note Date/Time April 30, 2024 10 :28am [facility] [address] [place] [address] Discharge Summary Signed Patient: Taye Gay MR#: [id number] : 1955 Acct:[id number] Age/Sex: 68 / F Adm Date: 4 Loc: 3T Room: [address] [place] [address]: Priscilla Lang MD Copies to: [...] taking multiple medications that 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 At this [...] ask her primary care doctor to obtain [facility] record entirely to address abnormalities seen on [...] ask your primary care provider to obtain [facility] records entirely to follow up on all [...] or having drug?drug interaction. Discharging you from [facility] does not mean that your medical care [...] constipation) (DME) pen needle, diabetic [Sure-Fine Pen [place]] .Route lidocaine 5 % ointment 1 applic [...] % (Auto) 63.5, Lymph % (Auto) 24.9, [place] % (Auto) 8.3, Eos % (Auto) 2.9, Baso % (Auto) 0.4, Nucleat RBC Rel Count 0.0, Neut # (Auto) 4.6, Lymph # (Auto) 1.8, [place] # (Auto) 0.6, Eos # (Auto) 0.2, [...] signed by Priscilla Lang MD> 04/30/24 1028 [facility] Work Phone: evaluation noteNo [facility] [employer] Other Evaluation note* Diagnosis Onset Date Resolution Status Cholelithiasis acute Emphysematous cystitis acute Pyelonephritis acute Right lateral abdominal pain acute [facility] Work Phone: evaluation noteNo assessment information available [facility] Work Phone: evaluation note* Diagnosis Onset Date Resolution Status [id number] acute Dietary counseling and surveillance acute Hyperlipidemia acute Hypertension acute Insulin long-term use acute Peripheral neuropathy acute Type 2 diabetes mellitus acu te Vitamin B 12 deficiency acut [facility] Work Phone: evaluation note* Diagnosis Onset Date Resolution Status BMI 28.0-28.9,adult acute [id number] acute Dietary counseling and surveillance acute Hyperlipidemia acute Hypertension acute Insulin long-term use acute Peripheral neuropathy acute Type 2 diabetes mellitus acu te Vitamin B [facility]: Evaluation note* Diagnosis Onset Date Resolution Status BMI 28.0-28.9,adult acute [id number] acute Dietary counseling and surveillance acute Hyperlipidemia acute Hypertension acute Insulin long-term use acute Peripheral neuropathy acute Type 2 diabetes mellitus acu te Vitamin B 12 deficiency acut e Dizziness acute Hypertension acute Primary insomnia acute Type 2 diabetes mellitus acu te [facility] Work Phone: evaluation note* Diagnosis Onset Date Resolution Status BMI 28.0-28.9,adult acute [id number] acute Dietary counseling and surveillance acute Hyperlipidemia acute Hypertension acute Insulin long-term use acute Peripheral neuropathy acute Type 2 diabetes mellitus acu te Vitamin B 12 deficiency acut e Dizziness acute Hypertension acute Primary insomnia acute Type 2 diabetes mellitus acu te PAD (peripheral artery disease) acute [facility] Work Phone: evaluation note* Diagnosis Onset Date Resolution Status PAD (peripheral artery disease) acute BMI 28.0-28.9,adult acute [id number] acute Dietary counseling and surveillance acute Hyperlipidemia acute Hypertension acute Peripheral neuropathy acute Tachycardia acute Type 2 diabetes mellitus acu te Vitamin B 12 deficiency acut e Atrial flutter with rapid ventricular response acute Chest pain acute Hyperlipidemia acute Hypertension acute New onset atrial flutter acu te Type 2 diabetes mellitus acu te [facility] Work Phone: evaluation note* Diagnosis Onset Date Resolution Status PAD (peripheral artery disease) acute BMI 28.0-28.9,adult acute [id number] acute Dietary counseling and surveillance acute Hyperlipidemia acute Hypertension acute Peripheral neuropathy acute Tachycardia acute Type 2 diabetes mellitus acu te Vitamin B 12 deficiency acut e Atrial flutter with rapid ventricular response acute Chest pain acute Hyperlipidemia acute Hypertension acute New onset atrial flutter acu te Type 2 diabetes mellitus acu te New onset atrial flutter acu te Mobility impaired noneactive [facility] Work Phone: evaluation note* Diagnosis Typical atrial flutter (Multi) Nonischemic cardiomyopathy (Multi) Other primary cardiomyopathies Hypertension, unspecified type Hypercholesteremia Pure hypercholesterolemia Smoker Tobacco use disorder Type 2 diabetes mellitus with other specified complication, unspecified whether intermediate manager insulin use (Multi) BMI 28.0-28.9,adult documented in this encounter [facility] Work Phone: Evaluation note* Diagnosis Onset Date Resolution Status BMI 28.0-28.9,adult acute [id number] acute Dietary counseling and surveillance acute Hyperlipidemia [...] diabetes mellitus acu te Mobility impaired noneactive [facility] Work Phone: Evaluation note* Diagnosis Onset Date Resolution Status BMI 28.0-28.9,adult acute [id number] acute Dietary counseling and surveillance acute Hyperlipidemia [...] 2 diabetes mellitus with hyperglycemia acute Weakness [facility] Work Phone: Evaluation note* Diagnosis Onset Date Resolution Status BMI 28.0-28.9,adult acute [id number] acute Dietary counseling and surveillance acute Hyperlipidemia [...] B 12 deficiency acut e Weakness acute [facility] Work Phone: Evaluation note* Diagnosis Onset Date Resolution Status BMI 28.0-28.9,adult acute [id number] acute Dietary counseling and surveillance acute Hyperlipidemia [...] acut e Weakness acute BMI 28.0-28.9,adult acute [id number] acute Dietary counseling and surveillance acute Hyperlipidemia acute Hypertension acute Peripheral neuropathy acute Type 2 diabetes mellitus acu te Vitamin B 12 deficiency [facility] Work Phone: Evaluation note* Diagnosis Onset Date Resolution Status BMI 28.0-28.9,adult acute [id number] acute Dietary counseling and surveillance acute Hyperlipidemia [...] thyroid blood test acute BMI 28.0-28.9,adult acute [id number] acute Dietary counseling and surveillance acute Hyperlipidemia acute Hypertension acute Peripheral neuropathy acute Type 2 diabetes mellitus acu te Vitamin B 12 deficiency [facility] Work Phone: Evaluation note* Diagnosis Onset Date Resolution Status BMI 28.0-28.9,adult acute [id number] acute Dietary counseling and surveillance acute Hyperlipidemia [...] thyroid blood test acute BMI 28.0-28.9,adult acute [id number] acute Dietary counseling and surveillance acute Hyperlipidemia acute Hypertension acute Peripheral neuropathy acute Type 2 diabetes mellitus acu te Vitamin B 12 deficiency acut e Hospital discharge follow-up acute Hypomagnesemia acute [facility] Work Phone: Evaluation note* Diagnosis Onset Date Resolution Status Ambulatory dysfunction acute Hypomagnesemia acute Hypothyroid acute Type 2 diabetes mellitus with hyperglycemia acute Vitamin B 12 deficiency acut e Weakness acute Abnormal thyroid blood test acute BMI 28.0-28.9,adult acute [id number] acute Dietary counseling and surveillance acute Hyperlipidemia acute Hypertension acute Peripheral neuropathy acute Type 2 diabetes mellitus acu te Vitamin B 12 deficiency acut e Hospital discharge follow-up acute Hypomagnesemia acute [facility] Work Phone: Evaluation note* Diagnosis Ulcer of right foot, limited to breakdown of skin (CMS/HCC)- Primary Blister of right foot, subsequent encounter 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) documented in this encounter [facility] HealthcareEvaluation note* Diagnosis Onset Date Resolution Status Ambulatory dysfunction acute Hypomagnesemia acute Hypothyroid acute Type 2 diabetes mellitus with hyperglycemia acute Vitamin B 12 deficiency acut e Weakness acute Abnormal thyroid blood test acute BMI 28.0-28.9,adult acute [id number] acute Dietary counseling and surveillance acute Hyperlipidemia acute Hypertension acute Peripheral neuropathy acute Type 2 diabetes mellitus acu te Vitamin B 12 deficiency acut e Hospital discharge follow-up acute Hypomagnesemia acute Weakness acute [facility] Work Phone: Evaluation note* Diagnosis [...] layer exposed (CMS/HCC) [facility] encounter [facility] [...] syndrome B12 deficiency documented in this encounter [facility]* Diagnosis Hypertension, unspecified type Typical atrial flutter (Multi) documented in this encounter [facility] Work Phone: Evaluation note* Diagnosis Lumbosacral radiculopathy at S1- Primary Neurogenic pain Cervical paraspinal muscle spasm Spasm of muscle Lumbar paraspinal muscle spasm Other symptoms referable to back Carpal tunnel syndrome, bilateral Carpal tunnel syndrome B12 deficiency documented in this encounter [facility]* Diagnosis Nonischemic cardiomyopathy (Multi)- Primary Other primary cardiomyopathies Typical atrial flutter (Multi) Hypercholesteremia Pure hypercholesterolemia Primary hypertension Unspecified essential hypertension Current smoker BMI 28.0-28.9,adult High risk medication use documented in this encounter [facility] Work Phone: Evaluation note* Diagnosis Leg [...] of foot (CMS/HCC) documented in this encounter [facility] HealthcareEvaluation note* Diagnosis High risk medication use- Primary Typical atrial flutter (Multi) Nonischemic cardiomyopathy (Multi) Other primary cardiomyopathies Hypercholesteremia Pure hypercholesterolemia BMI 28.0-28.9,adult BMI 30.0-30.9,adult Current smoker documented in this encounter [facility] Work Phone: Evaluation note* Diagnosis Carpal tunnel syndrome, bilateral- Primary Carpal tunnel syndrome documented in this encounter [facility] HealthcareEvaluation note* Diagnosis Ulcer of right foot, limited to breakdown of skin (CMS/HCC)- Primary Cellulitis of right foot documented in this encounter [facility] HealthcareEvaluation note* Diagnosis Ulcer of right foot, limited to breakdown of skin (CMS/HCC)- Primary Blister of right foot, initial encounter 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) documented in this encounter [facility] HealthcareEvaluation note* Diagnosis Typical atrial flutter (Multi)- Primary Nonischemic cardiomyopathy (Multi) Other primary cardiomyopathies Hypercholesteremia Pure hypercholesterolemia Hypertension, unspecified type BMI 32.0-32.9,adult Current smoker documented in this encounter [facility] Work Phone: History and physical note Author Arleen Stephen [facility] December 09, 2021 11:38am Note Date/Time December 09, 2021 11 :38am [facility] [address] [place] [address] Hospitalist H&P Signed Patient: Taye Gay MR#: [id number] : 1955 Acct:[id number] Age/Sex: 66 / F Adm Date: 2 Loc: ER Room: Type: [facility] [facility] Attending Dr: Copies to: NON STAFF [...] 02/09/21] insulin lispro 100 unit/mL subcutaneous pen ([facility] Insulin lispro) 1 sliding scale dose [...] % (Auto) 9.6 % (.) 12/09/21 08:50 [place] % (Auto) 9.1 % (.) 12/09/21 08:50 Eos % (Auto) 1.1 % (.) 12/09/21 08:50 Baso % (Auto) 0.4 % (.) 12/09/21 08:50 Neut # (Auto) 10.3 x10E3/uL (1.8-7.7) H 12/09/21 08:50 Lymph # (Auto) 1.2 x10E3/uL (1.00-4.8) 12/09/21 08:50 [place] # (Auto) 1.2 x10E3/uL (0.0-0.8) H 12/09/21 [...] pH 5.5 (5.0-9.0) 12/09/21 08:35 Ur Specific [place] 1.030 (1.001-1.030) 12/09/21 08:35 Urine Protein Negative [...] DVT prophylaxis Documented By: Arleen Stephen MD 12/09/211132 Signed By: <Electronically signed by Arleen Stephen MD> 12/09/21 1138 [facility] Work Phone: History and physical note Author Jluis Campos [facility] November 10, 2023 6:20am Note Date/Time November 10, 2023 6:11 am [facility] [address] [place] [address] Hospitalist H&P Signed Patient: Taye Gay MR#: [id number] : 1955 Acct:[id number] Age/Sex: 67 / F Adm Date: 4 Loc: Room: 8B9107-5 Type: ADM IN Attending Dr: Jluis Campos DO Copies to: DO Jluis Daniels, ~ HPI DATE OF EXAMINATION: 11/10/23 CHIEF COMPLAINT: [...] noted below or in HPI [facility] Medical History History of esophageal stricture BMI [...] Father Heart disease [facility] Problem: Diagnosed with Stroke Cancer throat heart [...] Confirmed 11/09/23] pen needle, diabetic [Sure-Fine Pen [place]] 06/12/23 [History Confirmed 11/09/23] omeprazole 20 mg [...] weaknesses were noted, patient unable to ambulate. Mtnh-jc-npwj test was normal. No tremors or ataxia with uaowwd-qe-fitv movements. Neuro: AOx3, CN II-VII intact. Moves [...] % (Auto) 26.0 % (.) 11/10/23 03:41 [place] % (Auto) 8.2 % (.) 11/10/23 03:41 Eos % (Auto) 3.7 % (.) 11/10/23 03:41 Baso % (Auto) 0.9 % (.) 11/10/23 03:41 Nucleat RBC Rel Count 0.1 /100 WBC (0-0.5) 11/10/23 03:41 Neut # (Auto) 5.2 x10E3/uL (1.8-7.7) 11/10/23 03:41 Lymph # (Auto) 2.2 x10E3/uL (1.00-4.8) 11/10/23 03:41 [place] # (Auto) 0.7 x10E3/uL (0.0-0.8) 11/10/23 03:41 [...] pH 6.0 (5.0-9.0) 11/10/23 05:02 Ur Specific [place] 1.007 (1.001-1.030) 11/10/23 05:02 Urine Protein Negative [...] signed by Jluis Campos DO> 11/10/23 0620 [facility] Work Phone: History and physical note Author Chico Hearn [facility] Note Date/Time April 29, 2024 6: 39am [facility] [address] [place] [address] Hospitalist H&P Signed Patient: Taye Gay MR#: [id number] : 1955 Acct:[id number] Age/Sex: 68 / F Adm Date: 4 Loc: Room: [address] [place] [address] Type: ADM IN Attending Dr: Chico Hearn [...] presence of WBCs, RBCs and rare yeast. Evys provided 3 to 24 mg of aspirin [...] of dementia, possible Alzheimer's dementia -continue home [id number] mg twice daily and donepezil 20 mg daily 12. Atrial fibrillation - continue Eliquis 5 mg twice daily for anticoagulationand carvedilol 12.5 mg twice daily. EKG in ER shows NSR 13. Hypoxia - no respiratory distress or cardiopulmonary complaints to accompany this. Will monitor telemetry and address as needed [facility] Medical History BMI 32.0-32.9,adult Abnormal thyroid blood [...] Father Heart disease [facility] Problem: Diagnosed with Stroke Cancer throat heart [...] (Stool Softener) 100 mg PO DAILY PRN zanuxbdpltzf22/14/24 [History Confirmed 04/28/24] multivitamin 1 tab PO DAILY 06/12/23 [History Confirmed 04/28/24] pen needle, diabetic [Sure-Fine Pen [place]] 06/12/23 [History Confirmed 04/28/24] metformin 500 mg [...] % (Auto) 24.6 % (.) 04/28/24 19:54 [place] % (Auto) 7.6 % (.) 04/28/24 19:54 Eos % (Auto) 2.7 % (.) 04/28/24 19:54 Baso % (Auto) 1.1 % (.) 04/28/24 19:54 Nucleat RBC Rel Count 0.2 /100 WBC (0-0.5) 04/28/24 19:54 Neut # (Auto) 6.5 x10E3/uL (1.8-7.7) 04/28/24 19:54 Lymph # (Auto) 2.5 x10E3/uL (1.00-4.8) 04/28/24 19:54 [place] # (Auto) 0.8 x10E3/uL (0.0-0.8) 04/28/24 19:54 [...] pH 5.5 (5.0-9.0) 04/28/24 22:02 Ur Specific [place] 1.038 (1.001-1.030) H 04/28/24 22:02 Urine Protein [...] 59 Signed By: <Electronically signed by Chico Hearn, > 04/29/24 0639 [facility] Work Phone: Hissunb general Narrative - Reported* Type Description Date Medical History HTN Medical History Diabetes Medical History Obesity Medical History HLP Medical History tonsillectomy Medical History hysterectomy Medical History Cataracts removed Bilateral Medical History Upper eye lift Surgical History tonsillectomy Surgical History hysterectomy Surgical History cataracts, bilaterally Surgical History eye lid surgery Surgical History removed cervix 12/2018 [facility] [employer] general Narrative - Reported* Type Description Date Medical History HTN Medical History Diabetes Medical History Obesity Medical History HLP Medical History tonsillectomy Medical History hysterectomy Medical History Cataracts removed Bilateral Medical History Upper eye lift Surgical History tonsillectomy Surgical History hysterectomy Surgical History cataracts, bilaterally Surgical History eye lid surgery Surgical History removed cervix 12/2018 Hospitalization History See Above [facility] Other Hisgijv general Narrative - Reported* Type Description Date Medical History HTN Medical History Diabetes Medical History Obesity Medical History HLP Medical History tonsillectomy Medical History hysterectomy Medical History Cataracts removed Bilateral Medical History Upper eye lift Surgical History tonsillectomy Surgical History partial hysterectomy Surgical History cataracts, bilaterally Surgical History eye lid surgery--bilateral Surgical History removed cervix 12/2018 Hospitalization History See Above [facility] Other Hisqsqf general Narrative - Reported* Type Description Date [...] History UTI and gallbladder jami yusef 11/2021 [facility] Other History general Narrative - Reported* Type Description Date [...] History UTI and gallbladder jami yusef 11/2021 [facility] Work Phone: [facility] Work Phone: [facility] Work Phone: Hospital Discharge instructionsAmbulatory Orders* Initiate [...] - Care to be managed by PCP [facility] Work Phone: Hospital Discharge instructions Additional Instructions I may not have addressed or treated all of your medical illnesses or the abnormal blood work or imaging studies during this hospitalization. Please ask your primary care provider to obtain [facility] records entirely to follow up on all [...] having drug drug interaction. Discharging you from [facility] does not mean that your medical care ends here and now. You may still need additional monitoring, work up, investigation, and treatment plan to be handled from this point on by out patient providers including your primary care provider and specialists. For any medication question, please contact your retail pharmacist or your primary care provider. Thank you.[facility] Work Phone: Progress note Author Arleen Stephen [facility] December 10, 2021 11:26am Note Date/Time December 10, 2021 11 :26am [facility] [address] [place] [address] Hospitalist Progress Note Signed Patient: Taye Gay MR#: [id number] : 1955 Acct:[id number] Age/Sex: 66 / F Adm Date: 2 Loc: Room: [address] [place] [address] Type: ADM IN Attending Dr: Arleen Stephen [...] 1,000 Ml IV 12/09/22 11:29 75 mls/hr .[id number] PARMJIT Administration Ceftriaxone Sodium 1 gm in [...] signed by Arleen Stephen MD> 12/10/21 1126 [facility] Work Phone: Progress note Author Arleen Stephen [facility] December 11, 2021 1:33pm Note Date/Time December 11, 2021 1: 30pm [facility] [address] [place] [address] Hospitalist Progress Note Signed Patient: Taye Gay MR#: [id number] : 1955 Acct:[id number] Age/Sex: 66 / F Adm Date: 2 Loc: Room: [address] [place] [address] Type: ADM INOo Attending Dr: Arleen Stephen [...] signed by Arleen Stephen MD> 12/11/21 1333 [facility] Work Phone: Progress note Author Walter Montgomery [facility] December 12, 2021 8:07am Note Date/Time December 12, 2021 8: 07am [facility] [address] [place] [address] General Surgery Progress Note Signed Patient: Taye Gay MR#: [id number] : 1955 Acct:[id number] Age/Sex: 66 / F Adm Date: 2 Loc: 3T Room: [address] [place] [address] Type: ADM Marmolejo Attending Dr: Arleen Stephen MD Copies to: [...] 81 Mg Tablet.Dr) 81 mg PO DAILY [facility] Stop: 12/10/22 08:59 Last Admin: 12/11/21 08:00 [...] 50 mls @ 100 mls/hr IV Q24H [facility] Last Infusion: 12/11/21 10:15 Dose: Infused Sodium Chloride (0.9% Sodium Chloride 1,000 Ml) 1,000 mls @ 100 mls/hr IV .[id number] Stop: 12/12/22 00:00 Last Admin: 12/12/21 00:10 Dose: 100 mls/hr Insulin Aspart (Insulin Aspart 300 Units/3 Ml Insuln.Pen) 0 units SUBCUT TID.[facility]; Protocol Stop: 12/09/22 11:59 Last Admin: 12/11/21 21:21 Dose: 3 units Nortriptyline HCl (Nortriptyline 25 Mg Capsule) 50 mg PO BID [facility] Stop: 12/09/22 20:59 Last Admin: 12/11/21 21:20 Dose: 50 mg Omeprazole (Omeprazole 20 Mg Capsule.Dr) 20 mg PO DAILY [facility] Stop: 12/10/22 08:59 Last Admin: 12/11/21 08:00 Dose: 20 mg Ondansetron HCl (Ondansetron 4 Mg/2 Ml Vial) 4 mg IV-PUSH Q8H PRN PRN Reason: Nausea And Vomiting Stop: 12/09/22 11:18 Pioglitazone HCl (Pioglitazone 15 Mg Tablet) 15 mg PO DAILY [facility] Stop: 12/10/22 08:59 Last Admin: 12/11/21 08:00 [...] 15 Mg Capsule) 30 mg PO QHS [facility] Stop: 12/09/22 21:59 Last Admin: 12/11/21 21:20 [...] % (Auto) 66.8, Lymph % (Auto) 21.0, [place] % (Auto) 9.2, Eos % (Auto) 2.6, Baso % (Auto) 0.4, Neut # (Auto) 4.1, Lymph # (Auto) 1.3, [place] # (Auto) 0.6, Eos # (Auto) 0.2, [...] <Electronically signed by DO Walter Montgomery> 12/12/21806 [facility] Work Phone: Progress note Author Arleen Stephen [facility] December 12, 2021 1:20pm Note Date/Time December 12, 2021 1: 20pm [facility] [address] [place] [address] Hospitalist Progress Note Signed Patient: Taye Gay MR#: [id number] : 1955 Acct:[id number] Age/Sex: 66 / F Adm Date: 2 Loc: 3T Room: [address] [place] [address] Type: ADM INOo Attending Dr: Arleen Stephen [...] 12/12/21 12:00 12/12/21 12:00 12/12/21 12:00 12/12/21 12:12/12/21 12:00 Narrative: Patient alert oriented, no in [...] signed by Arleen Stephen MD> 12/12/21 1320 [facility] Work Phone: Progress note Author Teresa Strong [facility] December 12, 2021 8:43pm Note Date/Time December 12, 2021 2: 49pm [facility] [address] [place] [address] Urology Progress Note Signed Patient: Taye Gay MR#: [id number] : 1955 Acct:[id number] Age/Sex: 66 / F Adm Date: 2 Loc: Room: [id number] Type: ADM INOo Attending Dr: Arleen Stephen [...] % (Auto) 72.7, Lymph % (Auto) 16.1, [place] % (Auto) 8.8, Eos % (Auto) 2.1, Baso % (Auto) 0.3, Neut # (Auto) 5.3, Lymph # (Auto) 1.2, [place] # (Auto) 0.6, Eos# (Auto) 0.2, Baso [...] % (Auto) 66.8, Lymph % (Auto) 21.0, [place] % (Auto) 9.2, Eos % (Auto) 2.6, Baso % (Auto) 0.4, Neut # (Auto) 4.1, Lymph # (Auto) 1.3, [place] # (Auto) 0.6, Eos # (Auto) 0.2, Baso # (Auto) 0.0, Nucleated RBC % (auto) 0.1 12/11/21 11:05: POC Glucose 195 12/11/21 06:58: POC Glucose 172 12/10/21 21:10: POC Glucose 249 12/10/21 16:18: POC Glucose 176 Microbiology Microbiology 08/13/22 12:42 Blood - Right Antecubital Blood Culture [...] <Electronically signed by Teresa Strong MD> 12/12/212042 [facility] Work Phone: Progress note Author Walter Montgomery [facility] December 13, 2021 8:52am Note Date/Time December 13, 2021 8: 52am [facility] [address] [place] [address] General Surgery Progress Note Signed Patient: Taye Gay MR#: [id number] : 1955 Acct:[id number] Age/Sex: 66 / F Adm Date: 2 Loc: Room: [address] [place] [address] Type: ADM [place]armolejo Attending Dr: Wilmer Vance MD Copies to: [...] 12/09/21] insulin lispro 100 unit/mL subcutaneous pen ([facility] U-100 Insulin lispro) 1 sliding scale [...] 81 Mg Tablet.Dr) 81 mg PO DAILY [facility] Stop: 12/10/22 08:59 Last Admin: 12/12/21 10:33 Dose: Not Given Atorvastatin Calcium (Atorvastatin 10 Mg Tablet) 10 mg PO DAILY [facility] Stop: 12/10/22 08:59 Last Admin: 12/12/21 10:33 Dose: Not Given Cyanocobalamin (Cyanocobalamin 1,000 Mcg Tablet) 1,000 mcg PO DAILY [facility] Stop: 12/13/22 08:59 Dextrose (Dextrose 50% In Water 25 Gm/50 Ml Syringe) 0 gm IV-PUSH PRN PRN PRN Reason: Hypoglycemia Stop: 12/09/22 11:18 Docusate Sodium (Docusate 100 Mg Capsule) 100 mg PO TID [facility] Stop: 12/12/22 21:59 Last Admin: 12/12/21 22:26 [...] 50 mls @ 100 mls/hr IV Q24H [facility] Last Admin: 12/12/21 11:57 Dose: 100 mls/hr Sodium Chloride (0.9% Sodium Chloride 1,000 Ml) 1,000 mls @ 100 mls/hr IV .[id number] Stop: 12/12/22 00:00 Last Infusion: 12/13/21 03:35 Dose: Infused Lactated Ringer's (Lactated Ringers) 1,000 mls @ 20 mls/hr IV .Q24H [facility] Stop: 12/13/21 11:13 Last Infusion: 12/13/21 03:31 Dose: Infused Insulin Aspart (Insulin Aspart 300 Units/3 Ml Insuln.Pen) 0 units SUBCUT TID..[facility]; Protocol Stop: 12/09/22 11:59 Last Admin: 12/13/21 08:07 Dose: 4 units Nortriptyline HCl (Nortriptyline 25 Mg Capsule) 50 mg PO BID [facility] Stop: 12/09/22 20:59 Last Admin: 12/12/21 22:27 Dose: 50 mg Omeprazole (Omeprazole 20 Mg Capsule.Dr) 20 mg PO DAILY [facility] Stop: 12/10/22 08:59 Last Admin: 12/12/21 10:33 Dose: Not Given Ondansetron HCl (Ondansetron 4 Mg/2 Ml Vial) 4 mg IV-PUSH Q6H PRN PRN Reason: Nausea And Vomiting Stop: 12/12/22 18:19 Pioglitazone HCl (Pioglitazone 15 Mg Tablet) 15 mg PO DAILY [facility] Stop: 12/10/22 08:59 Last Admin: 12/12/21 10:33 [...] % (Auto) 90.4, Lymph % (Auto) 7.7, [place] % (Auto) 1.8, Eos % (Auto) 0.0, Baso % (Auto) 0.1, Neut # (Auto) 8.5 H, Lymph # (Auto) 0.7 L, [place] # (Auto) 0.2, Eos # (Auto) 0.0, [...] % (Auto) 72.7, Lymph % (Auto) 16.1, [place] % (Auto) 8.8, Eos % (Auto) 2.1, Baso % (Auto) 0.3, Neut # (Auto) 5.3, Lymph # (Auto) 1.2, [place] # (Auto) 0.6, Eos# (Auto) 0.2, Baso [...] % (Auto) 66.8, Lymph % (Auto) 21.0, [place] % (Auto) 9.2, Eos % (Auto) 2.6, Baso % (Auto) 0.4, Neut # (Auto) 4.1, Lymph # (Auto) 1.3, [place] # (Auto) 0.6, Eos # (Auto) 0.2, [...] signed by DO Walter Montgomery> 12/13/21 0852 [facility] Work Phone: Progress note Author Priscilla Lang [facility] Note Date/Time April 29, 2024 11 :02am [facility] [address] [place] [address] Hospitalist Progress Note Signed Patient: Taye Gay MR#: [id number] : 1955 Acct:[id number] Age/Sex: 68 / F Adm Date: 4 Loc: Room: [address] [place] [address] Type: ADM IN Attending Dr: Priscilla Lang [...] laboratory evaluation for motor or sensory abnormalities 8/12/24, HIV screening, cryoglobulins, complement levels, heavy metal [...] of dementia, possible Alzheimer's dementia -continue home [id number] mg twice daily and donepezil 20 mg [...] providers. Documented By: Priscilla Lang MD 04/29/24 1058 Signed By: <Electronically signed by Priscilla Lang MD> 04/29/24 1108 [facility] Work Phone: Progress note Author Lit Clark [facility] Note Date/Time April 30, 2024 12 :30pm [facility] [address] [place] [address] Neurology Progress Note Signed with Addenda Patient: Taye Gay MR#: [id number] : 1955 Acct:[id number] Age/Sex: 68 / F Adm Date: 4 Loc: 3T Room: [address] [place] [address] Type: ADM IN Attending Dr: Priscilla Lang MD Copies to: ~ ADDENDUM1 Patient has refused to remove her nail senegalese for MRI. Unable to confirm whether or [...] may be metabolic in nature and not employee representative necessarily of transient ischemia or of [...] signed by Lit Clark DO> 04/30/24 0708 [facility] Work Phone: Summary Purpose Family [...] December 4:05pm Procedure Findings Note HNO ID: [id number] Author: Phi Joaquin Service: Gynecology Oncology Author Type: Physician Type: Brief Op Note Filed: 01/17/2019 7:15 PM Note Text: BRIEF OPERATIVE / PROCEDURE NOTE LOG ID: [id number] SURGERY/PROCEDURE DATE: 01/01/2019 INCISION/PROCEDURE START TIME: 8:11 AM INCISION CLOSE/PROCEDURE END TIME: 8:34 AM SURGEON(S)/PROCEDURALIST(S) AND HOTEL SERVER(S): Surgeon(s) and Role: * Theo Joaquin - [...] 01, 2019 TIME: 8:39 AM PAGER/CONTACT #: [id number] Chief Complaint and Reason for Visit Chief Complaint right side pain Low R abd pain Reason for Visit Cholelithiasis Emphysematous cystitis Pyelonephritis Right lateral abdominal pain Chief Complaint g02.97 f17.210 Chief Complaint g02.97 f17.210 Z12.39 Chief Complaint E11.4 Z78.0 Chief Complaint 3 month follow up Reason for Visit BMI 28.0-28.9,adult [id number] Dietary counseling and surveillance Hyperlipidemia Hypertension Insulin long-term use Peripheral neuropathy Type 2 diabetes mellitus Vitamin B 12 deficiency Chief Complaint 3 month follow up PVD FOLLOW UP Reason for Visit BMI 28.0-28.9,adult [id number] Dietary counseling and surveillance Hyperlipidemia Hypertension Insulin long-term use Peripheral neuropathy Type 2 diabetes mellitus Vitamin B 12 deficiency Dizziness Hypertension Primary insomnia Type 2 diabetes mellitus Chief Complaint 3 month follow up PVD FOLLOW UP g02.97 f17.210 Reason for Visit BMI 28.0-28.9,adult [id number] Dietary counseling and surveillance Hyperlipidemia Hypertension Insulin long-term use Peripheral neuropathy Type 2 diabetes mellitus Vitamin B 12 deficiency Dizziness Hypertension Primary insomnia Type 2 diabetes mellitus PAD (peripheral artery disease) Chief Complaint 3 month follow up PVD FOLLOW UP g02.97 f17.210 E11.9 E78.5 E53.8 Reason for Visit BMI 28.0-28.9,adult [id number] Dietary counseling and surveillance Hyperlipidemia Hypertension Insulin long-term use Peripheral neuropathy Type 2 diabetes mellitus Vitamin B 12 deficiency Dizziness Hypertension Primary insomnia Type 2 diabetes mellitus PAD (peripheral artery disease) Chief Complaint PVD FOLLOW UP g02.97 f17.210 E11.9 E78.5 E53.8 Amb Documentation brent on phone chest pains chest pains Reason for Visit PAD (peripheral evert ry disease) BMI 28.0-28.9,adult [id number] Dietary counseling and surveillance Hyperlipidemia Hypertension Peripheral [...] PAD (peripheral evert ry disease) BMI 28.0-28.9,adult [id number] Dietary counseling and surveillance Hyperlipidemia Hypertension Peripheral [...] i70.91 d51.3 Reason for Visit BMI 28.0-28.9,adult [id number] Dietary counseling and surveillance Hyperlipidemia Hypertension Peripheral [...] d51.3 aflutter Reason for Visit BMI 28.0-28.9,adult [id number] Dietary counseling and surveillance Hyperlipidemia Hypertension Peripheral [...] Falls, Shaky Reason for Visit BMI 28.0-28.9,adult [id number] Dietary counseling and surveillance Hyperlipidemia Hypertension Peripheral [...] Falls, Shaky Reason for Visit BMI 28.0-28.9,adult [id number] Dietary counseling and surveillance Hyperlipidemia Hypertension Peripheral [...] on phone Reason for Visit BMI 28.0-28.9,adult [id number] Dietary counseling and surveillance Hyperlipidemia Hypertension Peripheral [...] Vitamin B 12 deficiency Weakness BMI 28.0-28.9,adult [id number] Dietary counseling and surveillance Hyperlipidemia Hypertension Peripheral neuropathy Type 2 diabetes mellitus Vitamin B 12 deficiency Chief Complaint E11.9 E78.5 E53.8 Amb Documentation brent on phone chest pains chest pains Amb Documentation Hospital follow up g72.9 g62.9 r79.89 g60.9 z11.3 e53.1 i70.91 d51.3 aflutter Multiple Falls, Shaky Amb Documentation brent on phone typical a flutter Reason for Visit BMI 28.0-28.9,adult [id number] Dietary counseling and surveillance Hyperlipidemia Hypertension Peripheral [...] Weakness Abnormal thyroid blood test BMI 28.0-28.9,adult [id number] Dietary counseling and surveillance Hyperlipidemia Hypertension Peripheral neuropathy Type 2 diabetes mellitus Vitamin B 12 deficiency Chief Complaint E11.9 E78.5 E53.8 Amb Documentation brent on phone chest pains chest pains Amb Documentation Hospital follow up g72.9 g62.9 r79.89 g60.9 z11.3 e53.1 i70.91 d51.3 aflutter Multiple Falls, Shaky Amb Documentation brent on phone typical a flutter typical a flutter [facility] up Reason for Visit BMI 28.0-28.9,adult [id number] Dietary counseling and surveillance Hyperlipidemia Hypertension Peripheral [...] Weakness Abnormal thyroid blood test BMI 28.0-28.9,adult [id number] Dietary counseling and surveillance Hyperlipidemia Hypertension Peripheral neuropathy Type 2 diabetes mellitus Vitamin B 12 deficiency Hospital discharge follow-up Hypomagnesemia Chief Complaint E11.9 E78.5 E53.8 Amb Documentation brent on phone chest pains chest pains Amb Documentation Hospital follow up g72.9 g62.9 r79.89 g60.9 z11.3 e53.1 i70.91 d51.3 aflutter Multiple Falls, Shaky Amb Documentation brent on phone typical a flutter typical a flutter [facility] follow up G62.9 G60.9 R79.89 Z11.3 E53.1 I70.31 D51.3 Reason for Visit BMI 28.0-28.9,adult [id number] Dietary counseling and surveillance Hyperlipidemia Hypertension Peripheral [...] Weakness Abnormal thyroid blood test BMI 28.0-28.9,adult [id number] Dietary counseling and surveillance Hyperlipidemia Hypertension Peripheral neuropathy Type 2 diabetes mellitus Vitamin B 12 deficiency Hospital discharge follow-up Hypomagnesemia Chief Complaint E11.9 E78.5 E53.8 Amb Documentation brent on phone chest pains chest pains Amb Documentation Hospital follow up g72.9 g62.9 r79.89 g60.9 z11.3 e53.1 i70.91 d51.3 aflutter Multiple Falls, Shaky Amb Documentation brent on phone typical a flutter typical a flutter [facility] follow up G62.9 G60.9 R79.89 Z11.3 E53.1 I70.31 D51.3 g62.9 r79.89 g60.9 z11.3 e53.1 d51.3 Reason for Visit BMI 28.0-28.9,adult [id number] Dietary counseling and surveillance Hyperlipidemia Hypertension Peripheral [...] Weakness Abnormal thyroid blood test BMI 28.0-28.9,adult [id number] Dietary counseling and surveillance Hyperlipidemia Hypertension Peripheral neuropathy Type 2 diabetes mellitus Vitamin B 12 deficiency Hospital discharge follow-up Hypomagnesemia Chief Complaint g72.9 g62.9 r79.89 g 60.9 z11.3 e53.1 i70.91 d51.3 aflutter Multiple Falls, Shaky Amb Documentation brent on phone typical a flutter typical a flutter [facility] follow up G62.9 G60.9 R79.89 Z11.3 E53.1 I70.31 D51.3 g62.9 r79.89 g60.9 z11.3 e53.1 d51.3 M54.17 Reason for Visit Ambulatory dysfuncti on Hypomagnesemia Hypothyroid Type 2 diabetes mellitus with hyperglycemia Vitamin B 12 deficiency Weakness Abnormal thyroid blood test BMI 28.0-28.9,adult [id number] Dietary counseling and surveillance Hyperlipidemia Hypertension Peripheral neuropathy Type 2 diabetes mellitus Vitamin B 12 deficiency Hospital discharge follow-up Hypomagnesemia Chief Complaint g72.9 g62.9 r79.89 g 60.9 z11.3 e53.1 i70.91 d51.3 aflutter Multiple Falls, Shaky Amb Documentation brent on phone typical a flutter typical a flutter [facility] follow up G62.9 G60.9 R79.89 Z11.3 E53.1 I70.31 D51.3 g62.9 r79.89 g60.9 z11.3 e53.1 d51.3 M54.17 R60.0 M79.671 r/o dvt Reason for Visit Ambulatory dysfuncti on Hypomagnesemia Hypothyroid Type 2 diabetes mellitus with hyperglycemia Vitamin B 12 deficiency Weakness Abnormal thyroid blood test BMI 28.0-28.9,adult [id number] Dietary counseling and surveillance Hyperlipidemia Hypertension Peripheral neuropathy Type 2 diabetes mellitus Vitamin B 12 deficiency Hospital discharge follow-up Hypomagnesemia Chief Complaint g72.9 g62.9 r79.89 g 60.9 z11.3 e53.1 i70.91 d51.3 aflutter Multiple Falls, Shaky Amb Documentation brent on phone typical a flutter typical a flutter [facility] follow up G62.9 G60.9 R79.89 Z11.3 E53.1 I70.31 D51.3 g62.9 r79.89 g60.9 z11.3 e53.1 d51.3 M54.17 R60.0 M79.671 r/o dvt L97.511 L03.115 lumbosacral radiculopathy at s1 Reason for Visit Ambulatory dysfuncti on Hypomagnesemia Hypothyroid Type 2 diabetes mellitus with hyperglycemia Vitamin B 12 deficiency Weakness Abnormal thyroid blood test BMI 28.0-28.9,adult [id number] Dietary counseling and surveillance Hyperlipidemia Hypertension Peripheral neuropathy Type 2 diabetes mellitus Vitamin B 12 deficiency Hospital discharge follow-up Hypomagnesemia Chief Complaint aflutter Multiple Falls, Shaky Amb Documentation brent on phone typical a flutter typical a flutter [facility] follow up G62.9 G60.9 R79.89 Z11.3 E53.1 I70.31 D51.3 g62.9 r79.89 g60.9 z11.3 e53.1 d51.3 M54.17 R60.0 M79.671 r/o dvt L97.511 L03.115 lumbosacral radiculopathy at s1 8 Month F/U Reason for Visit Ambulatory dysfuncti on Hypomagnesemia Hypothyroid Type 2 diabetes mellitus with hyperglycemia Vitamin B 12 deficiency Weakness Abnormal thyroid blood test BMI 28.0-28.9,adult [id number] Dietary counseling and surveillance Hyperlipidemia Hypertension Peripheral [...] 11:14am Dietary counseling and surveillance [facility] 2023 11:14am Hyperlipidemia April 28, 2024 11:14am Hypertension April 28, 2024 11:14am Peripheral neuropathy April 28 11:14am Type 2 diabetes mellitus April 28, 2024 11:14am Vitamin B 12 deficiency April 28 11:14am TIA (transient ischemic attack) April 28, 2024 10:38pm Reason for Visit Admit Date High granulocyte count April 14 9:30am Secondary polycythemia April 14 9:30am BMI 32.0-32.9,adult April 28, 2024 11:14am Chronic kidney disease (CKD) stage G2/A2, mildly decreased glomerular filtr April 28, 2024 11:14am Dietary counseling and surveillance [facility] 2023 11:14am Hyperlipidemia April 28, 2024 11:14am Hypertension April 28, 2024 11:14am Peripheral neuropathy April 28 11:14am Type 2 diabetes mellitus April 28, 2024 11:14am Vitamin B 12 deficiency April 28 11:14am Atrial fibrillation April 28, 2024 10:38pm Generalized weakness April 28, 2024 10:38pm Insulin dependent diabetes mellitus [facility] 2023 10:38pm TIA (transient ischemic attack) April 28, 2024 10:38pm Chief Complaint Admit Date Screening, Dysphagia February 14, 2024 12:30pm NEW elevated WBC April 14, 2024 9:30am irregular heart beat, dizziness, weaknes s April 27, 2024 2:18pm Follow Up 2 Weeks April 28, 2024 9:53am brent on phone April 28, 2024 11:14am Weakness April 28, 2024 10:38pm [facility] May 07 1:02pm Reason for Visit Admit Date High granulocyte count April 14 9:30am Secondary polycythemia April 14 9:30am High granulocyte count April 28 9:53am Secondary polycythemia April 28 9:53am BMI 32.0-32.9,adult April 28, 2024 11:14am Chronic kidney disease (CKD) stage G2/A2, mildly decreased glomerular filtr April 28, 2024 11:14am Dietary counseling and surveillance [facility] 2023 11:14am Hyperlipidemia April 28, 2024 11:14am Hypertension April 28, 2024 11:14am Peripheral neuropathy April 28 11:14am Type 2 diabetes mellitus April 28, 2024 11:14am Vitamin B 12 deficiency April 28, 024 11:14am Atrial fibrillation April 28, 2024 10:38pm Generalized weakness April 28, 2024 10:38pm Insulin dependent diabetes mellitus [facility] 2023 10:38pm TIA (transient ischemic attack) April 28, 2024 10:38pm Cigarette nicotine dependence April 1:02pm Chief Complaint Admit Date NEW elevated WBC April 14, 2024 9:30am irregular heart beat, dizziness, weaknes s April 27, 2024 2:18pm Follow Up 2 Weeks April 28, 2024 9:53am brent on phone April 28, 2024 11:14am Weakness April 28, 2024 10:38pm [facility] May 07 1:02pm G45.9 [...] 11:14am Dietary counseling and surveillance [facility] 2023 11:14am Hyperlipidemia April 28, 2024 11:14am Hypertension April 28, 2024 11:14am Peripheral neuropathy April 28 11:14am Type 2 diabetes mellitus April 28, 2024 11:14am Vitamin B 12 deficiency April 28, 024 11:14am Atrial fibrillation April 28, 2024 10:38pm Generalized weakness April 28, 2024 10:38pm Insulin dependent diabetes mellitus [facility] 2023 10:38pm TIA (transient ischemic attack) April 28, 2024 10:38pm Cigarette nicotine dependence April 1:02pm Disordered sleep May 07, 2024 1: 02pm Hypotension May 07, 2024 1: 02pm Stool incontinence May 07, 2024 1: 02pm TIA (transient ischemic attack) May 07, 2024 1:02pm Chief Complaint Admit Date NEW elevated WBC April 14, 2024 9:30am irregular heart beat, dizziness, weaknes s April 27, 2024 2:18pm Follow Up 2 Weeks April 28, 2024 9:53am brent on phone April 28, 2024 11:14am Weakness April 28, 2024 10:38pm [facility] May 07 1:02pm G45.9 May 25, 2024 4 :33pm r06.02, r60.9, E11.65, E78.5 June 262024 10:35am Elevated WBC June 26, 2024 10:38am Reason for Referral Specialty Diagnoses / Procedures Referred By Conttommy t Referred To Contact Diagnoses Typical atrial flutter (Multi) Procedures ECG 12 Lead Jonas Ch MD [facility] 2, [address] [address] Referral ID Status Reason Start Date Expiration Date V isits Requested Visits Authorized [id number] Authorized 11/13/2023 11/12/2024 1 1 Specialty Diagnoses / Procedures Referred By Contac t Referred To Contact Diagnoses Typical atrial flutter (Multi) Procedures Complete Pulmonary Function Test (Spirometry/DLCO/Lung Volumes) Jonas Ch MD [address] [place] [address] 2, [place] [address] [place] [address] Referral ID Status Reason Start Date Expiration Date V isits Requested Visits Authorized [id number] Pending Review 11/13/2023 11/12/2024 1 1 Specialty Diagnoses / Procedures Referred By Contac t Referred To Contact Radiology Diagnoses Typical atrial flutter (Multi) Procedures XR chest 2 views Jonas Ch MD [facility] 2, [place] [address] [place] [address] Referral ID Status Reason Start Date Expiration Date Visits Requested Visits Authorized [id number] Authorized Perform Procedure 11/13/2023 11/12/2024 1 1 Specialty Diagnoses / Procedures Referred By Contac t Referred To Contact Cardiology Diagnoses Nonischemic cardiomyopathy (Multi) Procedures Follow Up In Cardiology Jonas Ch MD [facility] [facility] 2, [place] [address] [place] [address] Roland Faust MD [address] [place] [address] 2, [place] [address] [place] [phone] Referral ID Status Reason Start Date Expiration Date V isits Requested Visits Authorized [id number] Authorized 11/13/2023 11/12/2024 1 1 Specialty Diagnoses / Procedures Referred By Contac t Referred To Contact Cardiology Diagnoses Typical atrial flutter (Multi) Procedures Cardioversion External Jonas Ch MD [facility] [facility] 2, [place] [address] [place] [address] Referral ID Status Reason Start Date Expiration Date V isits Requested Visits Authorized [id number] Pending Review 10/07/2023 10/06/2024 1 1 Specialty Diagnoses / Procedures Referred By Contac t Referred To Contact Cardiology Diagnoses Typical atrial flutter (Multi) Procedures Follow Up In Cardiology Jonas Ch MD [facility] 2, [address] [place] [address] Jonas Ch MD [facility] 2, [address] [place] [address] Referral ID Status Reason Start Date Expiration Date V isits Requested Visits Authorized [id number] Authorized 10/07/2023 10/06/2024 1 1 Reason LEFT FOOT INJURY Diagnosis 1 Type 2 diabetes ye itus with hyperglycemia (E11.65) Diagnosis 2 Injury of foot, left (S99.922A) Referral Organization [facility] Referring Provider First Name Angelique Referring Provider Last Name Yvonne Referring Provider Specialty Nurse Pract itioner Referred Organization [facility] Referred Provider Karl Fritz Referred Address ,[place], [place],[address] Referred Provider Specialty Podiatry - S urgical Chiropody Referral Priority Routine Referral Appointment Date 2023-01-09 General Notes Emerald Doshi 12/28 03:26:20 PM >SCHEDULED FOR 01/09/23 AT 10:15AM. PATIENT INFORMED. Additional Source Comments INFORMATION SOURCE (unrecogn ized section and content) DATE CREATED AUTHOR 10/21/2017 [facility] DATE CREATED AUTHOR AUTHOR'S ORGANIZ ATION 10/22/2017 [facility] DATE CREATED AUTHOR AUTHOR'S ORGANIZ ATION 02/16/2019 [facility] DATE CREATED AUTHOR AUTHOR'S ORGANIZ ATION 02/02/2022 [facility] DATE CREATED AUTHOR AUTHOR'S ORGANIZ ATION 04/10/2024 [facility] EPIC DATE CREATED AUTHOR AUTHOR'S ORGANIZ ATION 06/28/2024 [facility] DATE CREATED AUTHOR AUTHOR'S ORGANIZ ATION 07/01/2024 [facility] REASON FOR VISIT (unrecogniz ed section and content) Reason Comments Hospital Follow-up [facility] 09/[facility]/23 Reason Comments Peripheral Neuropathy Reason Comments Blood Pressure Check With ekg Specialty Diagnoses / Procedures Referred By Tahmina thurston Referred To Contact Cardiology Diagnoses Hypertension, unspecified type Procedures Follow Up In Cardiology Roland Faust MD [facility] [facility] 2, [address] [address] Phone: tel: fax: Roland Faust MD [address] [place] [address] [address], [address] [address] Phone: tel: fax: Referral ID Status Reason Start Date Expiration Date V isits Requested Visits Authorized [id number] Authorized 03/09/2024 03/09/2025 1 1 Reason Comments Follow-up [facility] follow up Specialty Diagnoses / Procedures Referred By Contac t Referred To Contact Cardiology Diagnoses Typical atrial flutter (Multi) Procedures Follow Up In Cardiology Jonas Ch MD [address] [place] [address] 2, [place] [phone] Jonas Ch MD [address] [place] [address] 2, [place] [phone] Referral ID Status Reason Start Date Expiration Date V isits Requested Visits Authorized [id number] Authorized 10/07/2023 10/06/2024 1 1 Reason Comments cognitive decline Reason Comments Follow-up Medication change, A sherman d/c Specialty Diagnoses / Procedures Referred By Contac t Referred To Contact Cardiology Diagnoses Typical atrial flutter (Multi) Procedures Follow Up In Cardiology Roland Faust MD [address] [place] [address] [address], [address] [address] Roland Faust MD [address] [place] [address] [address], [address] [address] Referral ID Status Reason Start Date Expiration Date V isits Requested Visits Authorized [id number] Authorized 11/28/2023 11/27/2024 1 1 Specialty Diagnoses / Procedures Referred By Contac t Referred To Contact Neurology Diagnoses Carpal tunnel syndrome, bilateral upper limbs Procedures CT INJECTION THERAPEUTIC CARPAL TUNNEL CT KETOROLAC TROMETHAMINE INJ 1 CC STERILE SYRINGE&NEEDLE Oz Kincaid MD [address] [place] [address] Oz Kincaid MD [address] [place] [address] Referral ID Status Reason Start Date Expiration Date V isits Requested Visits Authorized [id number] Closed Perform Procedure 12/16/2023 06/13/2024 1 1 Reason Comments Follow-up 4 month with EKG. Pt denies c/o at this time. Specialty Diagnoses / Procedures Referred By Contac t Referred To Contact Cardiology Diagnoses Nonischemic cardiomyopathy (Multi) Procedures Follow Up In Cardiology Jonas Ch MD Traboulssi, MD Roland [facility] 2, [address] [place] [address] Phone: tel: fax: Referral ID Status Reason Start Date Expiration Date V isits Requested Visits Authorized [id number] Pending Review 11/13/2023 11/12/2024 1 1 Care Teams (unrecognized sec tion and content) Team Status: Active Member Role Status Dates Sandra Keita DO Primary Care Provider Active Team Status: Inactive Member Role Status Dates Sandra Keita , Primary Care Provider Active Start: June 12, 2023 End: June 12, 2023 Angelique Russell APRN Attending Provider Active Start: June 12, 2023 End: June 12, 2023 Team Status: Active Member Role Status Dates Jonas Yoder , Primary Care Provider Karlos Fine MD Active Kelly Giang PA-C Active Angelique Russell APRN Attending Provider Active Team Status: Inactive Member Role Status Dates Sandra Keita DO Primary Care Provider, Bradford hartley Active Team Status: Inactive Member Role Status Dates Tray Randle , Emergency Provider Active Arleen Stephen MD Admit Provider Active Walter Montgomery , Other Provider Active Teresa Strong MD Other Provider Active Wilmer Vance MD Attending Provider Active Jonas Yoder , Primary Care Provider Acti ve Team Status: Inactive Member Role Status Dates PHYSICIAN NO FAMILY Primary Care Provider Active Reynold Daily , Emergency Provider Active Team Status: Active Member [...] 14, 2023 Elva Florian MD Admit Provider, Attmitzi schustering Provider Active Start: September 13, 2023 End: [...] September 13, 2023 End: September 14, 2023 Roland Faust MD Other Provider Active St art: September 13, 2023 End: September 14, 2023 Manjit Barbosa MD Other Provider Active Start: September 13, 2023 End: September 14, 2023 Naida Fritz APRN Other Provider Active Start : September 13, 2023 End: September 14, 2023 Stephanie Stoll MD Other Provider Active Start: [facility] 2023 End: September 14, 2023 Jann Kaplan MD Other Provider Active Start: September 13, 2023 End: September 14, 2023 Cara Tenorio MD Other Provider Active Start: [facility] 2023 End: September 14, 2023 Elizabeth Parra , [facility] Other Provider Active Sta rt: September 13, 2023 End: September 14, 2023 Ashley Cheatham MD Other Provider Active Start: September 13, 2023 End: September 14, 2023 Team Status: Active Member Role Status Dates Sandra Keita , Primary Care Provider Active Start: September 14, [...] Other Provider Active Start: September 14, 2023 Roland Faust MD Other Provider Active St art: September 14, 2023 Manjit Barbosa MD Other Provider Active Start: September 14, 2023 Naida Fritz APRN Other Provider Active Start : September 14, 2023 Stephanie Stoll MD Other Provider Active Start: ay 2023 Jann Kaplan MD Other Provider Active Start: September 14, 2023 Cara Tenorio MD Other Provider Active Start: [place] ay 2023 Elizabeth Parra , [facility] Other Provider Active Sta rt: September 14, [...] September 17, 2023 End: September 17, 2023 Molder Hand Relationship Specialty Start Date End Date Sandra Keita DO [address] [place] [address] PCP - General Family Medicine 09/25/23 Team [...] September 14, 2023 End: September 14, 2023 Roland Faust MD Other Provider Active St art: September [...] Tenorio MD Other Provider Active Start: M stephanie 2023 End: September 14, 2023 Elizabeth Parra , [facility]- Other Provider Active Sta rt: September [...] November 05, 2023 Jonas Ch MD Attending P odilia, Referring Provider Active Start: November 05, 2023 End: November 05, 2023 Team Status: Active Member Role Status Dates Sandra Keita DO Primary Care Provider Active Start: November 10, 2023 Reynold Daily DO Emergency Provider Active St art: November 10, 2023 Jluis Campos DO Admit Provider, Attending Provider Active Start: November 10, 2023 Team Status: Inactive Member Role Status Dates Sandra Keita DO Primary Care Provider Active Start: November 10, 2023 End: November 12, 2023 Reynold Daily DO Emergency Provider Active St art: November 10, 2023 End: November 12, 2023 Jluis Campos DO Admit Provider Active Start: November 10, 2023 End: November 12, 2023 Saranya Wright Other Provider Active Start: November 10, 2023 End: November 12, 2023 Cash Aponte , PhD Other Provider Active S tart: November 10, 2023 End: November 12, 2023 Jelly Tuttle , DO Other Provider Active Start: November 10, 2023 End: November 12, 2023 John Murillo MD Other Provider Active Start : November 10, 2023 End: November 12, 2023 Lit Clark , Other Provider Active Start: November 10, 2023 End: November 12, 2023 Dayana Dodge , ANP-BC Other Provider Active Start: November 10, 2023 End: November 12, 2023 Roque Isidro , Other Provider Active Start: November 10, 2023 End: November 12, 2023 Tracy Calvo APRN Other Provider Active St art: November 10, 2023 End: November 12, 2023 Tayler Medina NURSE UNIT MANAGER-C Other Provider Active Sta rt: November 10, 2023 End: November 12, 2023 Jeanine Ibrahim APRN-WILDLIFE MANAGER-C Other Provider Active Start: November 10, 2023 [...] Team Status: Inactive Member Role Status Dates Sadnra Keita DO Primary Care Provider Active Start: [...] January 06, 2024 End: January 06, 2024 Roland Faust MD Attending Provider Active Start: January 06, [...] January 15, 2024 End: January 15, 2024 Molder Hand Relationship Specialty Start Date End Date Sandra Keita DO [address] [facility] [place] [address] PCP - General Family Medicine 01/09/23 Team Status: Inactive Member Role Status Marco A Keita DO Primary Care Provide r, Attending Provider Active Start: February 03, 2024 End: February 03, 2024 Molder Hand Relationship Specialty Start Date End Date Sandra Keita DO [address] [place] [address] PCP - General Family Medicine 01/09/23 Molder Hand Relationship Specialty Start Date End Date Sandra Keita DO [address] [place] [address] PCP - General Family Medicine 01/09/23 Molder Hand Relationship Specialty Start Date End Date Sandra Keita DO [address] [place] [address] PCP - General Family Medicine 01/09/23 Molder Hand Relationship Specialty Start Date End Date Sandra Keita DO [address] [place] [address] PCP - General Family Medicine 01/09/23 Molder Hand Relationship Specialty Start Date End Date Sandra Keita DO [address] [place] [address] PCP - General Family Medicine 09/25/23 Molder Hand Relationship Specialty Start Date End Date Sandra Keita DO [address] [place] [address] PCP - General Family Medicine 01/09/23 Molder Hand Relationship Specialty Start Date End Date Sandra Keita DO [address] [place] [address] PCP - General Family Medicine 01/09/23 Molder Hand Relationship Specialty Start Date End Date Sandra Keita DO [address] [place] [address] PCP - General Family Medicine 01/09/23 Molder Hand Relationship Specialty Start Date End Date Millie Keitaria DO Rebecca [address] [place] [address] PCP - General Family Medicine 09/25/23 Molder Hand Relationship Specialty Start Date End Date Sandra Keita DO [address] [place] [address] PCP - General Family Medicine 01/09/23 Molder Hand Relationship Specialty Start Date End Date Sandra Keita DO [address] [place] [address] PCP - General Family Medicine 01/09/23 Molder Hand Relationship Specialty Start Date End Date Sandra Keita DO [address] [place] [address] PCP - General Family Medicine 09/25/23 Molder Hand Relationship Specialty Start Date End Date Sandra Keita DO [address] [place] [address] PCP - General Family Medicine 01/09/23 Molder Hand Relationship Specialty Start Date End Date Sandra Keita DO [address] [place] [address] PCP - General Family Medicine 01/09/23 Molder Hand Relationship Specialty Start Date End Date Sandra Keita DO [address] [place] [address] PCP - General Family Medicine 01/09/23 Molder Hand Relationship Specialty Start Date End Date Sandra Keita DO [address] [place] [address] PCP - General Family Medicine 01/09/23 Molder Hand Relationship Specialty Start Date End Date Sandra Keita DO [address] [place] [phone] PCP - General Family Medicine 01/09/23 Molder Hand Relationship Specialty Start Date End Date Sandra Keita DO [address] [place] [phone] PCP - General Family Medicine 01/09/23 Molder Hand Relationship Specialty Start Date End Date Sandra Keita DO [address] [place] [address] PCP - General Family Medicine 01/09/23 Molder Hand Relationship Specialty Start Date End Date Sandra Keita DO [address] [place] [id number] PCP - General Family Medicine 01/09/23 Molder Hand Relationship Specialty Start Date End Date Sandra Keita DO [address] [place] [address] PCP - General Family Medicine 01/09/23 Team [...] May 25, 2024 End: May 25, 2024 Molder Hand Relationship Specialty Start Date End Date Sandra Keita DO [address] [place] [address] PCP - General Family Medicine 09/25/23 Team Status: Inactive Member Role Status Dates Sandra Keita DO Primary Care Provider Active Start: April 28, 2024 End: April 28, 2024 Nataliya Jane APRN Attending Provider Active Start: March End: April 28, 2024 Team Status: Inactive Member Role Status Dates Sandra Keita DO Primary Care Provider Active Start: June 26, 2024 End: June 26, 2024 Roland Faust MD Attending Provider Active Start: June 26, 2024 End: June 26, 2024 Angelique Russell APRN Other Provider Active Star t: June 26, 2024 End: June 26, 2024 Team Status: Active Member Role Status Dates Sandra Keita DO Primary Care Provider Active Start: June 26, 2024 Kourtney Demboske , TERMINAL COMPUTER OPERATOR Attending Provider Active Start: May Oz Kincaid MD Referring Provider Active Start: June 26, 2024 Goals (unrecognized section and content) Goals [...] BE BASED ON THE PRIMARY CLINICAL RECORDS. [employer] [facility]. provides no warranty or guarantee of the accuracy or completeness of information in this document.
[2024-07-06] MEDS: HYDROMORPHONE HCL 1 MG/ML CARTRIDGE IVP (20:21)
[2024-07-06] MEDS: ONDANSETRON PF 4 MG/2 ML VIAL IV (20:21)
[2024-07-06 20:24] LABS: Basophils Percent Auto 0.3 % (0.2-2.0); Eosinophils Absolute Auto 0.2 10^3/uL (0.0-0.7); Eosinophils Percent Auto 2.3 % (0.9-7.0); Hematocrit 47.4 % (36.0-48.0); Hemoglobin 15.5 g/dL (12.0-16.0); Immature Granulocytes Abs Auto 0.06 10^3/uL (0.00-0.03); Immature Granulocytes Pct Auto 0.6 % (0.0-0.5); Lymphocytes Absolute Auto 1.2 10^3/uL (1.2-3.8); Lymphocytes Percent Auto 12.3 % (20.5-60.0); Mean Corpuscular HGB Conc 32.7 g/dL (29.9-35.2); Mean Corpuscular Hemoglobin 31.5 pg (26.7-34.0); Mean Corpuscular Volume 96.3 fL (81.0-99.0); Mean Platelet Volume 11.7 fL (9.5-13.5); Monocytes Absolute Auto 0.9 10^3/uL (0.3-0.8); Monocytes Percent Auto 9.4 % (1.7-12.0); Neutrophils Absolute Auto 7.3 10^3/uL (1.4-6.5); Neutrophils Percent Auto 75.1 % (43.0-75.0); Platelet Count 113 10^3/uL (150-450); Red Blood Count 4.92 10^6/uL (4.20-5.40); Red Cell Distribution Width 13.5 % (11.0-15.0); White Blood Count 9.7 10^3/uL (4.0-11.0)
[2024-07-06 20:42] LABS: Alanine Aminotransferase 30 U/L (14-59); Albumin Globulin Ratio 0.8; Albumin Level 3.1 g/dL (3.4-5.0); Alkaline Phosphatase 123 U/L (46-116); Anion Gap 11.5; Aspartate Amino Transferase 28 U/L (15-37); BUN Creatinine Ratio 10.5; Bilirubin Total 0.5 mg/dL (0.2-1.0); Calcium 9.8 mg/dL (8.5-10.1); Carbon Dioxide 27.8 mmol/L (21.0-32.0); Chloride 101 mmol/L (98-107); Estimated GFR (African America 58 (>=60 mL/min/1.73m^2); Estimated GFR (Non-African Ame 48 (>=60 mL/min/1.73m^2); Globulin 3.7 g/dL; Glucose 388 mg/dL (74-106); Potassium 4.3 mmol/L (3.5-5.1); Sodium 136 mmol/L (136-145); Total Protein 6.8 g/dL (6.4-8.2)
[2024-07-06 20:43] LABS: Bilirubin Urine NEGATIVE (NEGATIVE); Blood Urine TRACE-I (NEGATIVE); Clarity Urine CLEAR (CLEAR); Color Urine LT. YELLOW (YELLOW); Glucose Urine UA >=1000 mg/dL (NEGATIVE); Ketones Urine NEGATIVE (NEGATIVE); Leukocyte Esterase Urine NEGATIVE (NEGATIVE); Nitrite Urine NEGATIVE (NEGATIVE); Protein Urine NEGATIVE (NEG/TRACE); Specific Gravity Urine <=1.005 (1.005-1.025); Urobilinogen Urine 0.2 EU/dL (0.2-1.0)
[2024-07-06 20:45] LABS: INR 1.07; Prothrombin Time 11.3 sec (9.0-11.6)
[2024-07-06 20:52] LABS: Bacteria Urine SMALL #/HPF (NONE SEEN); Cast Seen? NONE SEEN #/LPF (NONE SEEN); Crystals Seen? None Seen #/HPF (None Seen); Mucus Urine NONE SEEN (NONE SEEN); RBC Urine 0-2 #/HPF (0-2); Squamous Epithelial Cell Urine RARE #/LPF (NONE/RARE); Urine Culture Indicated YES-FRMC
[2024-07-06 21:45] LABS: Lactate/Lactic Acid 2.3 mmol/L (0.4-2.0)
--- NOTE | 2024-07-06 22:14 | PC.NURSE ---
pt placed on 2L NC due to desatting to 89% after dilaudid.
[2024-07-07] VITALS: O2SAT 96
[2024-07-07 00:10] VITALS: O2SAT 91
[2024-07-07 00:20] VITALS: O2SAT 95
[2024-07-07 00:30] VITALS: O2SAT 97
[2024-07-07 00:55] VITALS: O2SAT 94
[2024-07-07] MEDS: HYDROCODONE/ACET 5-325 MG TABLET 4 TAB PO (01:27)
== END 2024-07-07 01:35 | disposition home or self-care (01) ==
PROVIDERS: Physician Assistant; Emergency Provider Internal Medicine; Family Provider Family Medicine; PCP Family Medicine
DX: R10.9 Unspecified abdominal pain (principal); Z90.49 Acquired absence of other specified parts of digestive tract; Z90.710 Acquired absence of both cervix and uterus; E11.9 Type 2 diabetes mellitus without complications; Z79.4 Long term (current) use of insulin
CPT/HCPCS: 36415; 71046; 74176; 80053; 81001; 83605; 83690; 85025; 85610; 87086; 87150; 87186; 96374; 96375; 99285; J1171; J2405

== ENCOUNTER 2024-10-05 13:39 | Outpatient (OUT) | payer MEDICARE, MEDICAID, SELFPAY ==
--- NOTE | 2024-10-05 15:31 | PM.CN ---
Consult Note: HPI Data of Consult Patient: new to practice Consult date: 10/05/24 Requesting Physician: Halie Marc MD Primary Care Provider: Sandra Lewis DO Family Provider: JONAS YODER Consult Narrative Reason for consult: low back, bilateral leg pain Narrative: 68yof who presents for evaluation. longstanding low back and bilateral leg pain >1 year. imaging reviewed, significant for multilevel stenosis from L1-S1. multilevel facet arthropathy and DDD noted. has engaged in >6 weeks of provider directed home exercise course, without significant benefit. has tried lyrica, which helps neuropathy somewhat. denies adverse med side effects. cc:: CC: Halie Marc MD Review of Systems ROS Status of ROS 10 or more systems reviewed and unremarkable except as noted in history and below PFSH PFSH Social History Little interest or pleasure in doing things: not at all Feeling down, depressed, or hopeless: not at all Meds Home Medications and Allergies Home Medications ?Medication ?Instructions ?Recorded ?Confirmed ?Type apixaban 5 mg tablet (Eliquis) 5 mg PO Q12H 10/05/24 10/05/24 History aspirin 81 mg tablet 81 mg PO DAILY 10/05/24 10/05/24 History bupropion HCl 150 mg 24 hr tablet, 150 mg PO DAILY 10/05/24 10/05/24 History extended release carvedilol 12.5 mg tablet 12.5 mg PO Q12H 10/05/24 10/05/24 History donepezil 10 mg tablet 10 mg PO BID 10/05/24 10/05/24 History empagliflozin 25 mg tablet 25 mg PO DAILY 10/05/24 10/05/24 History (Jardiance) folic acid 1 mg tablet 1 mg PO DAILY 10/05/24 10/05/24 History furosemide 20 mg tablet 20 mg PO QMWFSA 10/05/24 10/05/24 History insulin glargine U-300 conc subcut 10/05/24 History memantine 10 mg tablet 10 mg PO BID 10/05/24 10/05/24 History metformin 500 mg tablet 500 mg PO BID 10/05/24 10/05/24 History nortriptyline 25 mg capsule 25 mg PO DAILY 10/05/24 10/05/24 History omeprazole 20 mg capsule,delayed 40 mg PO DAILY 10/05/24 10/05/24 History release pregabalin 150 mg capsule 300 mg PO Q12H 10/05/24 10/05/24 History semaglutide 1 mg/dose (4 mg/3 mL) mg subcut 10/05/24 History subcutaneous pen injector (Ozempic) simvastatin 20 mg tablet 40 mg PO DAILY 10/05/24 10/05/24 History tramadol 50 mg tablet 50 mg PO BID PRN pain #60 tabs 10/05/24 Rx Allergies Allergy/AdvReac Type Severity Reaction Status Date / Time Sulfa (Sulfonamide Allergy Mild Vomiting Verified 07/06/24 20:03 Antibiotics) Exam Narrative Exam Narrative: Psych-alert and oriented x 3. Attentive and appropriate, constitutionally normal, displays normal mood and affect per situation. There are no obvious deficits in memory, reasoning, or intellect.? Skin-no obvious rashes, bruising, erythema noted to the patient's area of pain.? Extremities- extremities are warm with minimal edema and palpable pulses. Lumbar-tenderness to palpation noted in the lumbar spine and paraspinal musculature. Pain is elicited with flexion, extension, and lateral rotation of the lumbar spine. Range of motion is diminished with these motions. Facet loading maneuvers are positive.? Strength-noted to be unremarkable with the exception of decreased strength rated at 4 out of 5 in bilateral quadriceps femoris, anterior tibialis. Sensory-no notable sensory deficits in the bilateral lower extremities to touch or pinprick in all dermatomal distributions with the exception to decreased sensation to the bilateral L4, 5 dermatomal distribution Sacroiliac - tender to palpation over bilateral PSIS. Positive Reynold's bilaterally. Positive thigh thrust bilaterally. Coordination remains intact.? Gait remains non-antalgic. Assessment and Plan Assessment and Plan (1) Lumbar stenosis with neurogenic claudication: (2) Lumbar spondylosis: (3) Sacroiliac joint disease: Plan 68yof who presents for evaluation. failed conservative measures, as noted. imaging reviewed, as noted. given symptoms and imaging, prudent to attempt bilateral l4-5 tfesi under fluoroscopic guidance. may even benefit from bilateral sacroiliac joint injection under fluoroscopic guidance. she is in agreement. meds reviewed. uds obtained. will trial tramadol 50mg bid prn. follow up after procedure.
== END 2024-10-05 13:40 | disposition home or self-care (01) ==
PROVIDERS: Family Provider Family Medicine; PCP Family Medicine; Visit Provider Anesthesiology
DX: M48.062 Spinal stenosis, lumbar region with neurogenic claudication (principal); M47.816 Spondylosis without myelopathy or radiculopathy, lumbar region; M53.3 Sacrococcygeal disorders, not elsewhere classified
CPT/HCPCS: G0463

== ENCOUNTER 2024-11-09 09:43 | Day surgery (SDC) | payer MEDICARE, MEDICAID, SELFPAY ==
[2024-11-09 10:08] VITALS: BP 116/75; PULSE 72; TEMP 36.1; O2SAT 91
[2024-11-09 10:48] VITALS: BP 97/55; PULSE 68; O2SAT 95
[2024-11-09] MEDS: 0.9 % SODIUM CHLORIDE 10 ML SYRINGE - SALINE FLUSH INJ (10:49)
[2024-11-09] MEDS: BUPIVACAINE HCL 0.25% PF 25 MG/10 ML VIAL INJ (10:49)
[2024-11-09] MEDS: LIDOCAINE HCL 2% 400 MG/20 ML MDV INJ (10:50)
[2024-11-09] MEDS: METHYLPREDNISOLONE ACETATE 80 MG/ML VIAL INJ (10:50)
[2024-11-09] MEDS: IOHEXOL 240 MG/ML - 10 ML VIAL INJ (10:50)
[2024-11-09 10:51] VITALS: BP 123/57
--- NOTE | 2024-11-09 10:52 | W.PM.PROCNOT ---
Date of procedure: 11/09/24 Pre-op diagnosis: Pain due to lumbar stenosis with neurogenic claudication Post-op diagnosis: same as pre-op Procedure: Procedure: Bilateral L4-5 transforaminal epidural steroid injection Medications: Bupivacaine 0.25% 2cc, lidocaine 2% 1cc, depomedrol 80mg The patient was seen and examined in the preoperative holding area.? Informed consent was obtained and placed on the chart.? Patient was brought to the medical procedure unit and placed in the prone position where a timeout was completed verifying the correct patient, procedure site, position, and planned special equipment using sterile aseptic technique.? Under direct fluoroscopic visualization a 25-gauge Quincke tipped spinal needle was advanced at level left L4-5 to the designated neural foramen where contrast dye was injected to show adequate spread.? There was no evidence of vascular or adverse uptake.? Epidural spread was appreciated.? The above-mentioned injectate was then placed in a 1.5 mL aliquot preceded by negative aspiration.? The needle was removed. The same procedure, at the same level, was completed on the opposite side. ? Patient was taken to the postprocedural recovery area and monitored for an appropriate length of time before found suitable for discharge in the accompaniment of a responsible adult. Anesthesia: Local Surgeon: Halie Marc Pathology: none sent Condition: stable Disposition: no change
== END 2024-11-09 10:57 | disposition home or self-care (01) ==
LOC: SURGOUT 09:44
PROVIDERS: Family Provider Family Medicine; PCP Family Medicine; Visit Provider Anesthesiology
DX: M48.062 Spinal stenosis, lumbar region with neurogenic claudication (principal); M54.50 Low back pain, unspecified; E11.8 Type 2 diabetes mellitus with unspecified complications; Z79.85 Long-term (current) use of injectable non-insulin antidiabetic drugs; Z79.84 Long term (current) use of oral hypoglycemic drugs
CPT/HCPCS: 36415; 64483; 82948; J0665; J1010; Q9966

== ENCOUNTER 2024-11-23 17:28 | Inpatient (IN) | payer MEDICARE, MEDICAID, SELFPAY ==
--- OUTSIDE RECORDS SUMMARY | 2024-11-16 16:00 | XMS_ITS | Encounter Summary ---
Author Organization [facility] Address [address] [place] [address] Care Team Providers Care Tractor Mechanic Helper Name Role Phone Sandra Lewis DO Primary Care Provider [phone] Encounter Details Date Type Department Care Team (Late st Contact Info) Description 11/16/2024 4:00 PM EDT Office Visit [facility] [address] [place] [address] Maureen Fritz DPM [address] [place] [address] Ulcer of right foot with fat layer exposed (HCC) (Primary Dx); 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); Cellulitis of right foot; Deformity of toe, right Social History Tobacco Use Types Packs/Day Years Used Date Smoking Tobacco: Every Day Cigarettes 1 49.6 Started: 1975 Smokeless Tobacco: Current Comments:Smokes 11-20 cigs p er day Alcohol Use Standard Drinks/Week Comments Never 0 (1 standard drink = 0.6 oz pur e alcohol) caffeine intake: occasional Comments Unknown Sex and Gender Information Value Date Recorded Sex Assigned at Not on file Legal Sex Female 8:02 PM EDT Gender Identity Not on file Sexual Orientation Not on file documented as of this encounter Progress Notes * Maureen Fritz DPM - 11/16/2024 4:00 PM EDT Images from the original note were not included. HPI: Patient presents today complaining of an ulcer on the bottom of the right great toe. Patient has pain with walking and standing due to this lesion. Patient's daughter states that she continue to haveproblems with a recurrent wound to the right foot along the great toe. She does not usually do a lot of offloading. Patient's diabetes is under okay control. They would like to discuss possibly doingsurgery to correct the toe deformity so that she does not have recurrent wounds to the right foot. Patient's daughter has been doing dressing changes. No other complaints. Exam: General Examination: Foot Exam: 11/16/24 GENERAL APPEARANCE: awake, aware of surroundings, in [...] limited to breakdown of skin PREVIOUS MEASUREMENT: closed PRE DEBRIDEMENT SIZE: 1cm x 0.8cm x 0.2cm POST DEBRIDEMENT SIZE: 1.2cm x 1cm x 0.3cm TRACKING: down to capsule 1cm along the inferior ulceration at 6 o'clock DRAINAGE: serous, slight pus from the area of increased depth MALODOR: none BASE: granular WOUND EDGES: hyperkeratosis [...] pedal groups tested Assessments: Ulcer right foot, fat layer exposed Deformity right foot Diabetes with ulceration, neuropathy Cellulitis right foot Treatment Note: Ulcer sub 1st MPJ 1. Ulceration to the right sub 1st MPJ was evaluated at today's visit. 2. [...] Hemostasis was obtained with pressure. Culture was taken of the ulceration site. 3. Saline flush to the ulceration site, followed by packing with silvasorb and dry dressing. Patient was advised to perform daily dressing changes to the ulceration site until healed. Supplies were dispensed. 4. Patient advised not to submerge foot underwater until ulcer is completely healed. Patient shouldspongebathe the foot only in all unopen areas. 5. Patient was instructed on continued dressing changes to the ulceration site with Collagen gel. They should continue with use of the surgical shoe for offloading/pressure reduction, but patient continues to wear a sandal. Patient states that she does not have a surgical shoe, so one was dispensedat today's visit for her to use for offloading. 6. Patient was advised if they notice any worsening to the ulceration site including signs of infection, N/F/V/C to call the office for an urgent appointment or go to the nearest emergency room. 7. RTC: 1 week. Due to the redness around the ulceration site at the right 1st MPJ, prescription for antibiotic wassent to the patient's preferred pharmacy. She was instructed on side effects and use. Patient does notice any worsening in regards to redness, streaking or other signs of infection and I did encourage her to call the office or go to the nearest urgent care or emergency room. Discussed all treatment options with patient in detail - both conservative and surgical. The further conservative treatment options were discussed with the patient including offloading, wound care. The patient elects to proceed with surgical intervention at this time. The risks, complications, benefits, alternatives to surgery including 2nd opinion, OR personnel and adriana and post-op care were discussed in detail with the patient. The elective nature of the procedure was also discussed in detailwith the patient. Specific complications related to this surgery were also discussed including, butnot limited to: possible infection, the need for oral or IV antibiotics, hospitalization, additional surgery including removal of hardware, prolonged pain, stiffness or reoccurrence. Other complications include blood clot, hematoma, loss of use, loss of toe, foot and or leg. We have reviewed the fact that prolonged swelling is possible up to a year after surgery and could delay return to normal shoes and activities. The clinical and radiographic findings were reviewed with the patient. Patient was instructed that they will be in a surgical shoe and may have to use a walker or crutches protected weight bearing on the surgical foot for at least 4-6 weeks. The patient was told that no guarantee could be made as to the outcome of the procedure patient consented to the proposed procedure: ARTHRODESIS RIGHT 1ST MPJ. The patient will be contacted for surgical scheduling. The patient will call if any problems or questions arise prior to their surgery date. documented in this encounter Plan of Treatment Upcoming Encounters Date Type Department Care Team (Late st Contact Info) Description 11/30/2024 1:15 PM EDT Office Visit [facility] [address] [facility] [address] [place] [address] Maureen Fritz DPM [address] [facility] 100 [place] [address] 12/11/2024 1:15 PM EDT Procedure Visit [facility] [place] [facility] [address] [facility] [address] [place] [address] Luan Kincaid MD [address] [place] [address] 12/18/2024 1:15 PM EDT [facility] [address] [facility] [address] [place] [address] Luan Kincaid MD [address] [place] [address] 01/19/2025 4:00 PM EDT Office Visit [facility] [address] [place] [address] Luan Kincaid MD [address] [facility] [address] [place] [address] Scheduled Orders Name Type Priority Associated Diagnoses Orde r Schedule [place]IC[place] [place] Microbiology Routine Ulcer of right foot with fat layer exposed (HCC) Ordered: 11/16/2024 documented as of this encounter Procedures Procedure Name Priority Date/Time Associated Diagnosis Comments XR FOOT 3+ VIEWS RIGHT Routine 11/16/2024 5:13 PM EDT Ulcer of right foot with fat layer exposed (HCC) documented in this encounter Results * XR foot 3+ views right (11/16/2024 5:13 PM EDT) Anatomical Region Laterality Modality Lower Extremities, Foot Right Radiogra phic Imaging Narrative 11/16/2024 5:13 PM EDT Imaging Result: Three views of the right foot: AP, MO, LAT were performed today in the office. Radiographs were read by myself and demonstrate: No evidence of acute fracture or dislocation. No evidence of cortical changes or osteomyelitis noted to the bone. Normal joint spaces noted with no evidence of narrowing or osteophyte formation. Cock-up deformity noted with loss of purchase to the hallux and prominence to the plantar sesamoids and metatarsal head right 1st metatarsal. us Maureen Fritz DPM IMG XR PROCEDURES Final Re sult documented in this encounter Visit Diagnoses Diagnosis Ulcer of right foot with fat layer exposed (HCC)- Primary 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) Cellulitis of right foot Deformity of toe, right documented in this encounter Care Teams Tractor Mechanic Helper Relationship Specialty Start Date End Date Sandra Lewis DO [facility] [place] [phone] PCP - General Family Medicine 10/15/24 documented as of this encounter
--- OUTSIDE RECORDS SUMMARY | 2024-11-16 16:00 | XMS_ITS | Encounter Summary ---
Author Organization [facility] Address [address] [place] [address] Care Team Providers Care Job Specification Writer Name Role Phone Sandra Lewis DO Primary Care Provider [phone] Encounter Details Date Type Department Care Team (Late st Contact Info) Description 11/16/2024 4:00 PM EDT Office Visit [facility] [address] [place] [address] Maureen Fritz DPM [address] [place] [address] Ulcer of right foot with fat layer [...] [facility] [address] [facility] [address] [place] [address] Maureen Fritz DPM [address] [facility] 100 [place] [address] 12/11/2024 1:15 PM EDT Procedure Visit [facility] [address] [facility] [address] [place] [address] Luan Kincaid MD [address] [place] [address] 12/18/2024 1:15 PM EDT [facility] [address] [facility] [address] [place] [address] Luan Kincaid MD [address] [place] [address] 01/19/2025 4:00 PM EDT Office Visit [facility] [address] [place] [address] Luan Kincaid MD [address] [facility] [address] [place] [address] Scheduled Orders Name Type Priority Associated Diagnoses Orde r Schedule [place]PERFICIAL [place] [place] Microbiology Routine Ulcer of right foot with [...] right documented in this encounter Care Teams Job Specification Writer Relationship Specialty Start Date End Date Sandra Lewis DO [facility] [place] [phone] PCP - General Family Medicine 10/15/24 documented as of this encounter
--- OUTSIDE RECORDS SUMMARY | 2024-11-23 14:45 | XMS_ITS | Encounter Summary ---
Author Organization [facility] Address [address] [place] [address] Care Team Providers Care Forensic Examiner Name Role Phone Sandra Lewis DO Primary Care Provider [phone] Encounter Details Date Type Department Care Team (Late st Contact Info) Description 11/23/2024 2:45 PM EDT Office Visit [facility] [address] [place] [address] Maureen Fritz DPM [address] [place] [address] Ulcer of right foot with fat layer [...] Description 11/30/2024 1:15 PM EDT Office Visit [facility] [place] [facility] [address] [place] [address] Maureen Fritz DPM [address] [place] [address] 12/11/2024 1:15 PM EDT Procedure Visit [facility] [address] [place] [address] Luan Kincaid MD 5319 [facility] [address] [phone] 12/18/2024 1:15 PM EDT Procedure Visit [facility] [address] [facility] [address] [place] [address] Luan Kincaid MD [address] [phone] 01/19/2025 4:00 PM EDT Office Visit [facility] [address] [facility] [address] [place] [address] Luan Kinciad MD [address] [phone] documented as of this encounter Visit Diagnoses Diagnosis Ulcer of right foot with fat layer exposed (HCC)- Primary 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) Abscess of right foot Cellulitis and abscess of foot, except toes At increased risk for emergency hospital admission documented in this encounter Care Teams Forensic Examiner Relationship Specialty Start Date End Date Sandra Lewis DO 25[address] [facility] [place] [phone] PCP - General Family Medicine 10/15/24 documented as of this encounter
--- OUTSIDE RECORDS SUMMARY | 2024-11-23 14:45 | XMS_ITS | Encounter Summary ---
Author Organization [facility] Address [address] [place] [address] Care Team Providers Care White Washer Piler Name Role Phone Sandra Lweis DO Primary Care Provider [phone] Encounter Details Date Type Department Care Team (Late st Contact Info) Description 11/23/2024 2:45 PM EDT Office Visit [facility] [address] [place] [address] Maureen Fritz DPM [address] [place] [address] Ulcer of right foot with fat layer [...] Podiatry [address] [place] [address] Maureen Fritz DPM [address] [place] [address] 12/11/2024 1:15 PM EDT Procedure Visit [facility] [address] [place] [address] Luan Kincaid MD 5319 [facility] [address] [phone] 12/18/2024 1:15 PM EDT Procedure Visit [facility] [address] [facility] [address] [place] [address] Luan Kincaid MD [address] [phone] 01/19/2025 4:00 PM EDT Office Visit [facility] [address] [facility] [address] [place] [address] Luan Kincaid MD [address] [phone] documented as of this encounter Visit Diagnoses Diagnosis Ulcer of right foot with fat layer exposed (HCC)- Primary 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) Abscess of right foot Cellulitis and abscess of foot, except toes At increased risk for emergency hospital admission documented in this encounter Care Teams White Washer Piler Relationship Specialty Start Date End Date Sandra Lewis DO [address]20 [facility] [place] [phone] PCP - General Family Medicine 10/15/24 documented as of this encounter
--- OUTSIDE RECORDS SUMMARY | 2024-11-23 17:34 | XMS_ITS | Encounter Summary ---
Author Organization [facility] Address [address] [place] [address] Phone Care Team Providers Care Medicare Coordinator Name Role Phone Sandra Lewis DO Primary Care Provider [phone] Encounter Details Date Type Department Care Team (Late st Contact Info) Description 09/13/2023 Scanned Document [facility] [address] [place] [phone] Scanning, Generic Provider Social History Tobacco Use Types Packs/Day Years Used Date Smoking Tobacco: Never Assessed Comments Unknown Sex and Gender Information Value Date Recorded Sex Assigned at Not on file Legal Sex Female 3:01 AM EDT Gender Identity Not on file Sexual Orientation Not on file documented as of this encounter Plan of Treatment Upcoming Encounters Date Type Department Care Team (Late st Contact Info) Description 12/30/2024 1:40 PM EDT Office Visit [facility] 7[address] [facility] [address] [place] [address] Roland Faust MD [address] [facility], [address] [place] [address] documented as of this encounter Visit Diagnoses Not on filedocumented in this encounter Care Teams Medicare Coordinator Relationship Specialty Start Date End Date Sandra Lewis DO [address] [facility] [place] [address] PCP - General Family Medicine 09/25/23 documented as of this encounter
--- OUTSIDE RECORDS SUMMARY | 2024-11-23 17:34 | XMS_ITS | Encounter Summary ---
Author Organization [facility] Address [address] [place] [address] Phone Care Team Providers Care Quilt Maker Name Role Phone Sandra Lewis DO Primary Care Provider [phone] Encounter Details Date Type Department Care Team (Late st Contact Info) Description 2023 Scanned Document [facility] [address] [place] [phone] Scanning, Generic Provider Social History Tobacco Use Types Packs/Day Years Used Date Smoking Tobacco: Every Day Cigarettes Smokeless Tobacco: Never Alcohol Use Standard Drinks/Week Comments Never 0 (1 standard drink = 0.6 oz pur e alcohol) Comments Unknown Sex and Gender Information Value Date Recorded Sex Assigned at Not on file Legal Sex Female 3:01 AM EDT Gender Identity Not on file Sexual Orientation Not on file COVID-19 Exposure Response Date Recorded In the last 10 days, have yo u been in contact with someone who was confirmed or suspected to have Coronavirus/COVID-19? No / Unsure 11/13/2023 1:37 PM EDT documented as of this encounter Plan of Treatment Upcoming Encounters Date Type Department Care Team (Late st Contact Info) Description 12/30/2024 1:40 PM EDT Office Visit [facility] 7[address] [facility] [address] [place] [address] Roland Faust MD [address] [facility] [address] [place] [address] documented as of this encounter Visit Diagnoses Not on filedocumented in this encounter Additional Health Concerns Assessment Noted Time A fall risk assessment has been complete d for the patient 11/13/2023 1:54 PM EDT documented as of this encounter Care Teams Quilt Maker Relationship Specialty Start Date End Date Sandra Lewis DO [address] [facility] [place] [address] PCP - General Family Medicine 09/25/23 documented as of this encounter
--- OUTSIDE RECORDS SUMMARY | 2024-11-23 17:34 | XMS_ITS | Encounter Summary ---
Author Organization [facility] Address [address] [place] [address] Phone Care Team Providers Care Agency Service Coordinator Name Role Phone Sandra Lewis DO Primary Care Provider [phone] Encounter Details Date Type Department Care Team (Late st Contact Info) Description 09/14/2023 Scanned Document [facility] [address] [place] [phone] Scanning, Generic Provider Social History Tobacco Use [...] Description 12/30/2024 1:40 PM EDT Office Visit [facility] [address] [facility] 250 [place] [address] Roland Faust MD 7[address] [facility] 2, [address] [place] [address] documented as of this encounter Visit Diagnoses Not on filedocumented in this encounter Care Teams Agency Service Coordinator Relationship Specialty Start Date End Date Sandra Lewis DO [address] [facility] [place] [address] PCP - General Family Medicine 09/25/23 documented as of this encounter
--- OUTSIDE RECORDS SUMMARY | 2024-11-23 17:34 | XMS_ITS | Encounter Summary ---
Author Organization [facility] Address [address] [place] [address] Phone Care Team Providers Care Prints And Drawings Curator Name Role Phone Sandra Lewis Primary Care Provider Encounter Details Date Type Department Care Team (Late st Contact Info) Description 09/12/2023 Scanned Document [facility] [address] [place] [phone] Scanning, Generic Provider Social History Tobacco Use [...] Description 12/30/2024 1:40 PM EDT Office Visit [facility] [address] [address] Roland Faust MD 703 [facility] 2, [address] [place], [place] [phone] documented as of this encounter Procedures Procedure Name Priority Date/Time Associated Diagnosis Comments OUTSIDE IMAGING SCAN 09/12/2023 ECHOCARDIOGRAM 09/12/2023 documented in this encounter Results * Echocardiogram (09/12/2023) Narrative 09/12/2023 Ordered by an unspecified provider. us Generic Provider Scanning CV ECHO PROCEDURES Fin al Result * OUTSIDE IMAGING SCAN (09/12/2023) Anatomical Region Laterality Modality Other Narrative 09/12/2023 Ordered by an unspecified provider. us Generic Provider Scanning OUTSIDE SCAN Final Result documented in this encounter Visit Diagnoses Not on filedocumented in this encounter Care Teams Prints And Drawings Curator Relationship Specialty Start Date End Date Sandra Lewis DO [address] [place] [address] PCP - General Family Medicine 09/25/23 documented as of this encounter
--- OUTSIDE RECORDS SUMMARY | 2024-11-23 17:34 | XMS_ITS | Encounter Summary ---
Author Organization [facility] Address [address] [place] [address] Care Team Providers Care Centrifugal Separator Name Role Phone Sandra Lewis Primary Care Provider [phone] Reason for Referral * Other Medical (Routine) - Authorized Specialty Diagnoses / Procedures Referred By Tahmina t Referred To Contact Neurology Diagnoses Arm weakness Numbness Arm pain, right Arm pain, left Procedures EMG AND NERVE CONDUCTION STUDY Luan Kincaid MD [address] [place] [address] Phone: tel: fax: Luan Kincaid MD [address] [place] [address] Phone: tel: fax: Referral ID Status Reason Start Date Expiration Date Visits Requested Visits Authorized [id number] Authorized Perform Procedure 11/16/2024 05/15/2025 1 1 Encounter Details Date Type Department Care Team (Late st Contact Info) Description 11/16/2024 Telephone [facility] 111 [address] [place] [phone] Shantel Parsons MA Social History Tobacco Use Types Packs/Day Years [...] on file documented as of this encounter Miscellaneous Notes * Telephone Encounter - Shantel Parsons MA - 11/16/2024 12:24 PM EDT Called and got pt rescheduled for EMG BLE and BUE documented in this encounter Plan of Treatment Upcoming Encounters Date Type Department Care Team (Late st Contact Info) Description 11/30/2024 1:15 PM EDT Office [facility] [place] [facility] [address] [place] [phone] Maureen Fritz DPM [address] [place] [address] 12/11/2024 1:15 PM EDT Procedure [facility] [address] [place] [address] Luan Kincaid MD [address] [address] 12/18/2024 1:15 PM EDT Procedure [facility] [address] [place] [address] Luan Kincaid MD [address] [place] [address] 01/19/2025 4:00 PM EDT Office [facility] [address] [place] [phone] Luan Kincaid MD [address] [address] Scheduled Orders Name Type Priority Associated Diagnoses Orde r Schedule EMG AND NERVE CONDUCTION STUDY Neurology Routine Arm weakness Numbness Arm pain, right Arm pain, left Expected: 11/16/2024 (Approximate), Expires: 11/16/2025 documented as of this encounter Visit Diagnoses Diagnosis Arm weakness Other musculoskeletal symptoms referable to limbs Numbness Disturbance of skin sensation Arm pain, right Pain in soft tissues of limb Arm pain, left Pain in soft tissues of limb documented in this encounter Care Teams Centrifugal Separator Relationship Specialty Start Date End Date Sandra Lewis DO [address] [place] [address] PCP - General Family Medicine 10/15/24 documented as of this encounter
--- OUTSIDE RECORDS SUMMARY | 2024-11-23 17:34 | XMS_ITS | Patient Health Record ---
Author Organization [facility] Address [address] [place] [address] Care Team Providers Care Ediphone Operator Name Role Phone Dr. Edgar Garcia Primary Care Provider Reason For Referral No Information Plan Of Treatment No Information Insurance Providers Payer Name Payer Address Payer Phone Subscriber Number Group Number Insured Name Patient Relationship to Insured Coverage Start Date Coverage End Date MEDICARE C[place] [address] [place] [address] [id number] TAYE MARCOS Self - patient is the insured 1 MEDICAID [facility] TO [facility] [address] [place] [address] [id number] TAYE MARCOS Self - patient is the insured 1 DENTAL MEDICAID [place] [address] [place] [address] [phone] [id number] TAYE MARCOS Self - patient is the insured 1
--- OUTSIDE RECORDS SUMMARY | 2024-11-23 17:34 | XMS_ITS | Encounter Summary ---
Author Organization [facility] Address [address] [place] [address] Phone Care Team Providers Care Operations Support Manager Name Role Phone Sandra Lewis DO Primary Care Provider [phone] Encounter Details Date Type Department Care Team (Late st Contact Info) Description 12/02/2023 Scanned Document [facility] [address] [place] [phone] Scanning, Generic Provider Social History Tobacco Use [...] suspected to have Coronavirus/COVID-19? No / Unsure 12/02/2023 2:18 PM EDT documented as of this encounter Plan of Treatment Upcoming Encounters Date Type Department Care Team (Late st Contact Info) Description 12/30/2024 1:40 PM EDT Office Visit [facility] [address] [facility] [address] [place] [address] Roland Faust MD [address] [facility] [address] [place] [address] documented as of this encounter Visit Diagnoses Not on filedocumented in this encounter Additional Health Concerns Assessment Noted Time A fall risk assessment has been complete d for the patient 11/13/2023 1:54 PM EDT documented as of this encounter Care Teams Operations Support Manager Relationship Specialty Start Date End Date Sandra Lewis DO [address] [facility] [place] [address] PCP - General Family Medicine 09/25/23 documented as of this encounter
--- OUTSIDE RECORDS SUMMARY | 2024-11-23 17:34 | XMS_ITS | Encounter Summary ---
Author Organization [facility] Address [address] [place] [address] Care Team Providers Care Sales Engagement Executive Name Role Phone Sandra Lewis DO Primary Care Provider [phone] Reason for Visit * Reason Onset Date Comments HH Orders 11/18/2024 Encounter Details Date Type Department Care Team (Late st Contact Info) Description 11/18/2024 Telephone [facility] [place] [facility] [address] [place] [address] Beatrice Boyd MA HH Orders Social History Tobacco Use Types Packs/Day Years [...] encounter Miscellaneous Notes * Telephone Encounter - Beatrice Boyd MA - 11/19/2024 5:12 PM EDT Letter has been faxed. * Telephone Encounter - Maureen Fritz DPM - 11/19/2024 4:32 PM EDT Letter for HHC was completed. Please fax as requested. * Telephone Encounter - Beatrice Boyd MA - 11/18/2024 1:45 PM EDT [facility] from [facility] called and was wondering if we could fax over HH orders to [phone]. documented in this encounter Plan of Treatment Upcoming Encounters Date Type Department Care Team (Late st Contact Info) Description 11/30/2024 1:15 PM EDT Office Visit [facility] [place] [facility] [address] [place] [address] Maureen Fritz DPM [address] [place] [address] 12/11/2024 1:15 PM EDT Procedure Visit [facility] [place] [facility] [address] [place] [address] Luan Kincaid MD [address] [facility] [address] [place] [address] 12/18/2024 1:15 PM EDT Procedure Visit [facility] [place] [facility] [address] [place] [address] Luan Kincaid MD [address] [place] [address], [place] [address] 01/19/2025 4:00 PM EDT Office Visit [facility] [facility] [address] [place] [address] Luan Kincaid MD [address] [address] documented as of this encounter Visit Diagnoses Diagnosis Ulcer of right foot with fat layer exposed (HCC)- Primary 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 [place] [address] PCP - General Family Medicine 10/15/24 documented as of this encounter
--- OUTSIDE RECORDS SUMMARY | 2024-11-23 17:34 | XMS_ITS | Clinical Summary ---
Author Organization [facility] Address [address] [place] [address] Care Team Providers Care Hospital Intern Name Role Phone Darrell Weinstein Primary Care Provider [phone] Nereida Castro MD Unavailable [phone] Allergies Active Allergy Reactions Criticality Noted Date Comments Sulfa (Sulfonamide Antibiotics) Vomiting 10/29 Medications cyanocobalamin (VITAMIN B-12) 1,000 mcg tab 1,000 mcg once daily. 0 9 Active folic acid 1 mg tablet Take 1 mg by mouth once daily. 0 9 Active lisinopril (ZESTRIL, PRINIVIL) 10 mg tablet Take 10 mg by mouth once daily. 1 9 Active metFORMIN (GLUCOPHAGE) 500 mg tablet Take 500 mg by mouth twice daily with meals. 0 9 Active metoclopramide HCl (REGLAN) 10 mg tablet Take 10 mg by mouth four times daily. 0 9 Active nortriptyline (PAMELOR) 50 mg capsule Take 50 mg by mouth daily at bedtime. 0 9 Active omeprazole (PRILOSEC) 20 mg capsule Take 20 mg by mouth once daily. 0 9 Active pioglitazone (ACTOS) 15 mg tablet Take 15 mg by mouth once daily. 0 9 Active simvastatin (ZOCOR) 20 mg tablet Take 20 mg by mouth daily at bedtime. 1 9 Active temazepam (RESTORIL) 30 mg cap Take 30 mg by mouth at bedtime as needed. 0 9 Active terconazole (TERAZOL 7) 0.4 % vaginal cream insert 1 applicatorful vaginally once daily for 7 days 0 9 Active insulin lispro sliding scale 1 (HUMALOG) Inject 1-5 Units subcutaneously w MEALS. 9 Active docusate sodium (COLACE) 100 mg capsule Take 1 capsule by mouth twice daily. 60 capsule 3 9 Active ibuprofen (MOTRIN) 600 mg tablet Take 1 tablet by mouth every 6 hours as needed for Pain. 60 tablet 3 9 Active acetaminophen (TYLENOL) 325 mg tablet Take 2 tablets by mouth every 4 hours as needed for Pain. 60 tablet 3 9 Active polyethylene glycol 3350 (MIRALAX) 17 gram/dose powder Take 17 g by mouth once daily. 235 g 9 Active Active Problems Problem Noted Date Diagnosed Date Hypertension Assessment & Plan (12/17/2018 2:53 PM EDT): Assessment: controlled on Lisinopril Diabetes Assessment & Plan (12/17/2018 2:54 PM EDT): Assessment: on Actos, metformin and Humalog. States BG in Am 110-140, Last A1C- 6.5 Hypercholesteremia Assessment & Plan (12/17/2018 2:53 PM EDT): Assessment: on statin Smoker Assessment & Plan (12/17/2018 2:54 PM EDT): Assessment: Current 40 pack year Family History Medical History Relation Comments Cancer Father Heart disease Father Stroke Father Heart disease Mother Hypertension Mother Stroke Mother Relation Status Comments Father Maternal Grandfather Maternal Grandmother Mother Paternal Grandfather Paternal Grandmother Social History Tobacco Use Types Packs/Day Years Used Date Smoking Tobacco: Every Day Cigarettes 1 50.6 Started: 1972 Smokeless Tobacco: Never Alcohol Use Standard Drinks/Week Comments Not Currently 0 (1 standard drink = 0.6 oz pur e alcohol) Area Deprivation Index Answer Date Steffen rded National Score (1-100), lower number is lower ri sk Not on file 04/03/2020 State Score (1-10), lower number is lower risk N ot on file 04/03/2020 Data from: https://www.neighborhoodatlas.medicine.[facility]/. Last address used for calculation Not on file 04/03/2020 Comments No Sex and Gender Information Value Date Recorded Sex Assigned at Not on file Legal Sex Female 10:19 AM EST Gender Identity Not on file Sexual Orientation Not on file Last Filed Vital Signs Vital Sign Reading Time Taken Comments Blood Pressure 103/65 12/18/2019 10:38 AM EDT Pulse 94 12/18/2019 10:38 AM EDT Temperature 36.2 C (97.2 F) 12/18/2019 10:38 AM EDT Respiratory Rate 18 12/18/2019 10:38 AM EDT Oxygen Saturation 97% 12/18/2019 10:38 AM EDT Inhaled Oxygen Concentration - - Weight 93.4 kg (206 lb) 12/18/2019 10:38 AM EDT Height 170.2 cm (5' 7.01 ) 02/27/2019 11:07 AM E DT Body Mass Index 32.26 02/27/2019 11:07 AM EDT Plan of Treatment Health Maintenance Due Date Last Done Comments Anxiety Screening 11/26/1975 Depression Screening 11/26/1975 Hepatitis C Screening 11/26/1975 DTaP,Tdap,Td Vaccine (1 - Tdap) [address] Colonography 2002 Cologuard (FIT-DNA) 2002 Colonoscopy 2002 Colorectal Cancer Screening 2002 Fecal Occult Blood 2002 Lipid Screening 2002 Sigmoidoscopy 2002 Pneumococcal Vaccine: 50+ (1 of 1 - PCV) 11/26/2007 Shingrix Vaccine (1 of 2) 11/26/2007 Diabetes Screening 12/17/2021 12/17/2018 Bone Density Screening 2022 Advance Directive Discussion 04/29/2024 Influenza Vaccine (#1) 2024 RSV Vaccine (1 - 1-dose 75+ series) 2032 Procedures Procedure Name Priority Date/Time Associated Diagnosis Comments COMPREHENSIVE METABOLIC PANEL Routine 12/17/2018 3:05 PM EDT Preop examination 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 from Last 3 Months or Most Recently Relevant to Health Maintenance Results * (ABNORMAL) COMP METABOLIC PANEL (12/17/2018 3:05 PM EDT) [facility] Protein, Total 7.6 6.3 - 8.0 g/dL 12/18/2018 3:35 AM [facility] Albumin 4.2 3.9 - 4.9 g/dL 12/18/2018 3:35 AM [facility] Calcium 10.6(H) 8.5 - 10.2 mg/dL 12/18/2018 3:35 AM [facility] Bilirubin, Total 0.3 0.2 - 1.3 mg/dL 12/18/2018 3:35 AM [facility] Alkaline Phosphatase 88 34 - 123 U/L 12/18/2018 3:35 AM [facility] AST 28 13 - 35 U/L 12/18/2018 3:35 AM [facility] Glucose 89 74 - 99 mg/dL 12/18/2018 3:35 AM [facility] Comment: The [place] Diabetes Association (ADA) provides guidance for cutoff values for fasting glucose and random glucose. The ADA defines fasting as no caloric intake for at least 8 hours. Fasting plasma glucose results between 100 to 125 mg/dL indicate increased risk for diabetes (prediabetes). Fasting plasma glucose results greater than or equal to 126 mg/dL meet the criteria for diagnosis of diabetes. In the absence of unequivocal hyperglycemia, results should be confirmed by repeat testing. In a patient with classic symptoms of hyperglycemia or hyperglycemic crisis, random plasma glucose results greater than or equal to 200 mg/dL meet the criteria for diagnosis of diabetes. Reference: Standards of Medical Care in Diabetes 2016, [place] Diabetes Association. Diabetes Care. 2016.39(Suppl 1). BUN 10 7 - 21 mg/dL 12/18/2018 3:35 AM [facility] Creatinine 0.73 0.58 - 0.96 mg/dL 12/18/2018 3:35 AM [facility] Sodium 138 136 - 144 mmol/L 12/18/2018 3:35 AM [facility] Potassium 4.4 3.7 - 5.1 mmol/L 12/18/2018 3:35 AM [facility] Chloride 100 97 - 105 mmol/L 12/18/2018 3:35 AM EDT [facility] CO2 21(L) 22 - 30 mmol/L 12/18/2018 3:[address] [facility] Anion Gap 17 9 - 18 mmol/L 12/18/2018 3:[address] [facility] ALT 22 7 - 38 U/L 12/18/2018 3:[address] [facility] eGFR- >60 12/18/2018 3:[address] [facility] eGFR-All Other Races >60 . 12/18/2018 3:[address] [facility] Comment: eGFR (Estimated GFR) Units of measure: mL/min/1.73 meters squared eGFR is derived from the reexpressed MDRD Study equation using the following parameters: serum creatinine, age, gender and race. The creatinine assay has been calibrated to be traceable to IDMS. An eGFR <60 mL/min/1.73m2 for >3 months is consistent with chronic kidney disease. Refer to KDOQI guidelines for clinical interpretation. In patients with unstable renal function, e.g. those with acute kidney injury, the eGFR may not accurately reflect actual GFR. Blood specimen (specimen) BLOOD SPECIMEN / Unknown 12/17/2018 3:05 PM EDT 12/17/2018 3:07 PM EDT Shantel Celestin APRN.[facility] Final R esult [facility] [address] [place] [address] [facility] [address] [place] [address] from Last 3 Months or Most Recently Relevant to Health Maintenance Insurance [facility] MEDICARE ADVANTAGE HMO Care Teams Hospital Intern Relationship Specialty Start Date End Date Darrell Weinstein [address] [facility] [address] [place] [phone] PCP - General Family Medicine 11/06/18 Nereida Castro MD [address] [facility] [address] [place] [address] Referring Obstetrics 11/06/18
--- OUTSIDE RECORDS SUMMARY | 2024-11-23 17:34 | XMS_ITS | Encounter Summary ---
Author Organization [facility] Address [address] [place] [address] Care Team Providers Care Supervisor Refining Name Role Phone Sandra Lewis DO Primary Care Provider [phone] Reason for Visit * Reason Onset Date Comments HH Orders Clarification 11/20/2024 Encounter Details Date Type Department Care Team (Late st Contact Info) Description 11/20/2024 Telephone [facility] [place] [facility] [address] [place] [address] Beatrice Boyd MA HH Orders Clarification Social History Tobacco Use Types Packs/Day Years [...] encounter Miscellaneous Notes * Telephone Encounter - Maureen Fritz DPM - 11/23/2024 1:50 PM EDT Patient is to be seen today and I can update [facility] order based on how her foot looks after her visit. * Telephone Encounter - Beatrice Boyd MA - 11/20/2024 12:31 PM EDT Alexandria from [facility] called regarding a clarification needed for the most recent HH orders they received from us. Alexandria stated that the patient was given a jar of packing strips, but the order does not say to use them. She also stated that the order advises to use Vashe, but the patient does not have any. Please advise, thank you. documented in this encounter Plan of Treatment Upcoming Encounters Date Type Department Care Team (Late st Contact Info) Description 11/30/2024 1:15 PM EDT Office Visit [facility] [place] [facility] [address] [place] [address] Maureen Fritz DPM [address] [place] [address] 12/11/2024 1:15 PM EDT Procedure [facility] [address] [place] [address] Luan Kincaid MD [address] [address] 12/18/2024 1:15 PM EDT Procedure Visit [facility] [address] [place] [address] Luan Kincaid MD [address] [address] 01/19/2025 4:00 PM EDT Office [facility] [address] [place] [address] Luan Kincaid MD [address] [address] documented as of this encounter Visit Diagnoses Not on filedocumented in this encounter Care Teams Supervisor Refining Relationship Specialty Start Date End Date Sandra Lewis DO [address] [place] [phone] PCP - General Family Medicine 10/15/24 documented as of this encounter
--- OUTSIDE RECORDS SUMMARY | 2024-11-23 17:34 | XMS_ITS | Clinical Summary ---
Author Organization [facility] Address [address] [place] [place] [address] Care Team Providers Care Beverage Steward Name Role Phone Sandra Lewis DO Primary Care Provider [phone] Allergies Active Allergy Reactions Criticality Noted Date Comments Sulfa Antibiotics GI intolerance,Unknown 2018 Medications Continuous Blood Gluc Sensor ([employer]Wiki[employer] [place] 14 Day Sensor) [facility] [place] 1 SENSOR as directed every 14 days use with DEVICE to MONIT... (REFER TO PRESCRIPTION NOTES). 12/22/19 23 Active Toujeo SoloStar 300 UNIT/ML injection inject 20 units subcutaneously as directed 12/13/19 23 Active Droplet Pen [place] 32G X 4 MM [facility] [place] 1 PEN NEEDLE to inject MEDICATION subcutaneously five times a day 02/20/20 22 Active omeprazole (PriLOSEC) [address] capsule 01/03/20 23 Active Ozempic, 1 MG/DOSE, 4 MG/3ML solution pen-injector Administer 1mg subcutaneously once weekly 12/11/19 23 Active simvastatin (Zocor) 40 MG tablet Take 40 mg by mouth at bedtime 12/05/19 23 Active Jardiance 25 MG take 1 tablet orally once daily Active Docusate Sodium (DSS) 100 MG capsule Take 100 mg by mouth in the morning and 100 mg in the evening. 06/12/19 24 Active folic acid (Folvite) 1 MG tablet Take 1,000 mcg by mouth Daily 10/16/19 24 Active Eliquis 5 MG tablet Take 5 mg by mouth in the morning and 5 mg before bedtime. Active aspirin 81 MG EC tablet Take 81 mg by mouth in the morning. Active metFORMIN (Glucophage) 500 MG tablet Take 500 mg by mouth 08/26/19 Active cyanocobalami n (Vitamin B-12) 2500 MCG tablet 11/14/19 24 Active magnesium oxide (Mag-Ox) 400 (240 Mg) MG tablet Take 400 mg by mouth in the morning and 400 mg before bedtime. 01/02/20 24 Active carvedilol (Coreg) 12.5 MG tablet Take 12.5 mg by mouth in the morning and 12.5 mg in the evening. Take with meals. 03/09/20 24 2024 Active donepezil (Aricept) 10 MG tabletIndicat ions:Cognitiv e decline 2 tabs QAM 60 tablet 5 07/22/19 25 Active memantine (Namenda) 10 MG tabletIndicat ions:Cognitiv e decline 1 tab BID 60 tablet 5 07/22/19 25 Active nortriptyline (Pamelor) 25 MG capsuleIndica tions:Neuroge preeti pain Take 1 capsule (25 mg) by mouth at bedtime 30 capsule 5 07/22/19 25 2024 Active pregabalin (Lyrica) 300 MG capsuleIndica tions:Neuroge preeti pain TAKE 1 CAPSULE BY MOUTH TWICE A DAY 60 capsule 3 11/03/19 25 Active doxycycline (Vibra-Tabs) 100 MG tabletIndicat ions:Ulcer of right foot with fat layer exposed (HCC) Take 1 tablet (100 mg) by mouth in the morning and 1 tablet (100 mg) before bedtime. Do all this for 10 days. Take with a full glass of water and do not lie down for at least 30 minutes after. 20 tablet 11/17/19 25 2024 Active pregabalin (Lyrica) 300 MG capsuleIndica tions:Neuroge preeti pain TAKE 1 CAPSULE BY MOUTH TWICE A DAY 60 capsule 3 07/11/19 25 2024 Discontinued Active Problems Problem Noted Date Diagnosed Date Weakness of both lower extremities 10/06/2024 Overview (10/06/2024): --- multifactorial, including PN G62.9, radiculopathy M54.17. Assessment & Plan (10/06/2024 2:30 PM EDT): --- multifactorial, including PN G62.9, radiculopathy M54.17. Worsening. Redo [facility] BLE (first). Reorder PT - strengthening, balance. Likely will need redo MR L-spine and redo spinal surgery consult. TIA (transient ischemic attack) 05/13/2024 Granulocytosis 04/07/2024 Assessment & Plan (04/07/2024 2:16 PM EST): Consult haematology. Cognitive decline 02/25/2024 Assessment & Plan (10/06/2024 2:30 PM EDT): (Continue current regimen.) Assessment & Plan (07/21/2024 3:08 PM EDT): (Continue current regimen.) Get [facility] records - neuro consults, EEG, MR, carotids, echo, discharge summary. Assessment & Plan (04/07/2024 2:16 PM EST): Pt to retry donepezil 15 qam (or 10/5). Assessment & Plan (02/25/2024 2:59 PM EDT): Add memantine 10 -> bid. Then add donepezil 10, titrate. Handout. Get MR images transferred to [facility] PACS for my review. 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 Assessment & Plan (10/06/2024 2:30 PM EDT): (Continue avoiding compression.) Assessment & Plan (07/21/2024 3:08 PM EDT): (Avoid compression.) Assessment & Plan (04/07/2024 2:16 PM EST): PO positive 11/29/2023 Assessment & Plan (02/25/2024 2:43 PM EDT): Get Dr. Gonzalez's note (2nd request). Assessment & Plan (01/07/2024 1:44 PM EDT): Get rheum note. Assessment & Plan (12/12/2023 2:49 PM EDT): Consult Drs. Vang/Lisa - PO positive, titer increasing, but subtests neg. Known peripheral neuropathy, worsening. Get full set of labs ([facility]). We have some but not all - find out why. For example 2nd PO (Nov 25) and its subtests were never received, neither on paper, nor electronically. Lumbosacral radiculopathy at S1 11/29/2023 Assessment & Plan (01/07/2024 1:36 PM EDT): Consult spine surg - pt requested Dr. Flor. Assessment & Plan (12/12/2023 2:45 PM EDT): Pending MR. Notify me when done. Assessment & Plan (11/29/2023 3:05 PM EDT): MR L-spine. [facility] suggest L S1 radiculopathy. Likely will need neurosurgery consult. Adverse effect of alpha-tocopheryl 11/29/2023 Vitamin E deficiency 11/29/2023 Assessment & Plan (11/29/2023 3:06 PM EDT): Add MVI (for Vitamin E). Or if already on MVI, add Vit E separately, 2/week. Chronic low back pain without sciatica Cervicalgia 11/06/2023 Cervical paraspinal muscle spasm 10/29/2023 Assessment & Plan (10/06/2024 2:30 PM EDT): (Continue current regimen, home PT.) Assessment & Plan (07/21/2024 3:08 PM EDT): (Continue current regimen, home PT.) Assessment & Plan (04/07/2024 2:16 PM EST): Assessment & Plan (01/07/2024 1:40 PM EDT): PT - please add PT to neck. Assessment & Plan (12/12/2023 2:48 PM EDT): (Continue home PT.) Assessment & Plan (10/29/2023 3:23 PM EDT): (Pt can be extended to neck as well.) Carpal tunnel syndrome, bilateral 10/29/2023 Overview (10/06/2024): --- causing hand weakness R29.898. Assessment & Plan (10/06/2024 2:30 PM EDT): --- causing hand weakness R29.898. (Continue splints B nightly.) Redo [facility] BUE due to worsening weakness. Assessment & Plan (07/21/2024 3:08 PM EDT): (Continue splints B nightly.) Assessment & Plan (04/07/2024 2:16 PM EST): (Continue splints B nightly.) Assessment & Plan (02/25/2024 2:59 PM EDT): (Continue splints B nightly.) Try to lower A1c further. Assessment & Plan (01/07/2024 1:43 PM EDT): (Continue splints B nightly.) Try to lower A1c further. Assessment & Plan (12/12/2023 2:45 PM EDT): (Continue splints B nightly.) (Pending [facility] tomorrow.) Assessment & Plan (10/29/2023 3:21 PM EDT): Restart splint use. [facility] BUE. (2nd) Polyneuropathy 10/29/2023 Assessment & Plan (11/29/2023 3:06 PM EDT): Pt reports 2nd PO is high 1:320 but I don't see it in the labs. Let's make sure we get this. May need rheumatology consult. Neuropathy panel II. Assessment & Plan (10/29/2023 3:17 PM EDT): Redo neurop panel. Diabetic peripheral neuropathy 10/29/2023 B12 deficiency 10/29/2023 Assessment & Plan (10/06/2024 2:30 PM EDT): (Continue B12 SL.) Assessment & Plan (07/21/2024 3:08 PM EDT): (Continue B12 SL.) Assessment & Plan (04/07/2024 2:16 PM EST): (Continue B12 SL.) Assessment & Plan (02/25/2024 2:59 PM EDT): (Continue B12 SL.) Assessment & Plan (01/07/2024 1:43 PM EDT): (Continue B12 SL.) Assessment & Plan (12/12/2023 2:46 PM EDT): (Continue B12 SL. Assessment & Plan (11/29/2023 3:04 PM EDT): Add B12 SL. Redo B12 panel 6-8 weeks. Assessment & Plan (10/29/2023 3:22 PM EDT): Restart B12 SL after labs are drawn. Redo B12 panel 8 w. Macroglossia 10/29/2023 Lumbar paraspinal muscle spasm 10/29/2023 Assessment & Plan (01/07/2024 1:39 PM EDT): Add cyclobenzaprine 10 hs, may incr to 20 hs. (Continue PT.) Assessment & Plan (12/12/2023 2:48 PM EDT): (Completion of ongoing PT, then home PT.) Assessment & Plan (10/29/2023 3:22 PM EDT): PT Neurogenic pain 10/29/2023 Assessment & Plan (04/07/2024 2:16 PM EST): (Continue current regimen.) Assessment & Plan (02/25/2024 2:59 PM EDT): (Continue PGB.) Add back nortriptyline 25. Assessment & Plan (01/07/2024 1:37 PM EDT): Incr PGB to 150/300 x several days, then 300 bid. Assessment & Plan (12/12/2023 2:44 PM EDT): Incr PGB to 300 bid Assessment & Plan (10/29/2023 3:17 PM EDT): Restart PGB 150 -> bid -> 150/300 -> 300 bid. (3 d each step) Muscle wasting and atrophy, not elsewhere classified, multiple sites 10/29/2023 Assessment & Plan (10/29/2023 3:18 PM EDT): Myopathy panel. Leg pain, bilateral 10/29/2023 Assessment & Plan (10/29/2023 3:20 PM EDT): XR L-s 6 v. [facility] BLE. (First) Resolved Problems Problem Noted Date Diagnosed Date Resolved Date BOSTON (obstructive sleep apnea) 10/29/2023 10/29/2023 Encounters Date Type Department Care Team Description 11/23/2024 2:45 PM EDT Office Visit [facility] [address] [place] [address] Maureen Fritz, DPM Ulcer of right foot with fat layer exposed (HCC) (Primary Dx); 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); Abscess of right foot; At increased risk for emergency hospital admission 11/23/2024 Bamboo flowsheet [facility] [address] [place] [address] Maureen Fritz, DPM 11/23/2024 Travel 11/20/2024 Telephone [facility] [address] [place] [address] Beatrice Boyd MA HH Orders Clarification 11/18/2024 Telephone [facility] [address] [place] [address] Beatrice Boyd MA HH Orders 11/18/2024 Telephone [facility] [address] [place] [address] Maureen Fritz, DPM 11/16/2024 4:00 PM EDT Office Visit [facility] [address] [place] [phone] Maureen Fritz, DPZenon Ulcer of right foot with fat layer exposed (HCC) (Primary Dx); 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); Cellulitis of right foot; Deformity of toe, right 11/16/2024 External Result Encounter [facility] External Department Unsolicited Maureen Fritz DPM 11/16/2024 Travel 11/16/2024 Telephone [facility] [address] [place] [address] Shantel Parsons MA 10/31/2024 Refill [facility] [address] [place] [address] Luan Kincaid MD Neurogenic pain 10/21/2024 Telephone [facility] [address] [address] Luan Kincaid MD 10/20/2024 10:45 AM EDT Office Visit [facility] [address] [place] [phone] Maureen Fritz, DPM Ulcer of right foot with fat layer exposed (HCC) (Primary Dx); 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); Blister of right foot, initial encounter; Deformity, foot, right 10/20/2024 Bamboo flowsheet [facility] [address] [place] [address] Maureen Fritz, DPM 10/20/2024 Travel 10/15/2024 Telephone [facility] [address] [facility] [address] [place] [address] Maureen Fritz, DPM 10/07/2024 Telephone [facility] [address] [facility] [address] [address] Luan Kincaid MD 10/06/2024 1:45 PM EDT Office Visit [facility] [address] [facility] [address] [place] [phone] Luan Kincaid MD Weakness of both lower extremities (Primary Dx); Carpal tunnel syndrome, bilateral; Cognitive decline; Cervical paraspinal muscle spasm; B12 deficiency; Guyon syndrome, unspecified laterality; Numbness; Leg pain, left; Leg pain, right; Bilateral leg weakness 10/06/2024 Bamboo flowsheet [facility] [address] [place] [phone] Luan Kincaid MD 10/06/2024 Travel from Last 3 Months Family History Medical History Relation Name Comments Mental illness Daughter Cancer Father Heart disease Father Stroke Father Heart disease Mother Hypertension Mother Stroke Mother Diabetes Sibling Bipolar disorder Sister 1 Diabetes Son Relation Name Status Comments Brother 1 Alive Brother 2 Alive Daughter Alive Father Maternal Grandfather Maternal Grandmother Mother Paternal Grandfather Paternal Grandmother Sibling Alive Sister 1 Alive Sister 2 Alive Son Alive Social History Tobacco Use Types Packs/Day Years Used Date Smoking Tobacco: Every Day Cigarettes 1 49.6 Started: 1975 Smokeless Tobacco: Current Tobacco Cessation:Ready to Q uit: No; Counseling Given: Not Answered Comments:Smokes 11-20 cigs per day Alcohol Use Standard Drinks/Week Comments Never 0 (1 standard drink = 0.6 oz pur e alcohol) caffeine intake: occasional Comments Unknown Sex and Gender Information Value Date Recorded Sex Assigned at Not on file Legal Sex Female 8:02 PM EDT Gender Identity Not on file Sexual Orientation Not on file Last Filed Vital Signs Vital Sign Reading Time Taken Comments Blood Pressure 130/84 02/25/2024 1:55 PM EDT Pulse 74 02/25/2024 1:55 PM EDT Temperature - - Respiratory Rate - - Oxygen Saturation - - Inhaled Oxygen Concentration - - Weight 91.2 kg (201 lb) 10/06/2024 1:57 PM EDT Height 170.2 cm (5' 7 ) 10/06/2024 1:57 PM EDT Body Mass Index 31.48 10/06/2024 1:57 PM EDT Plan of Treatment Upcoming Encounters Date Type Department Care Team (Late st Contact Info) Description 11/30/2024 1:15 PM EDT Office Visit [facility] [address] [address] Maureen Fritz DPM [address] [address] 12/11/2024 1:15 PM EDT Procedure Visit [facility] [address] [facility] [address] [place] [address] Luan Kincaid MD [address] [facility] [address] [address] 12/18/2024 1:15 PM EDT Procedure Visit [facility] [address] [facility] [address] [place] [address] Luan Kincaid MD [address] [facility] [address] [place], [place] [phone] 01/19/2025 4:00 PM EDT Office Visit [facility] [address] [place] [address] Luan Kincaid MD [address] [facility] [address] [place], [place] [phone] Procedures Procedure Name Priority Date/Time Associated Diagnosis Comments XR FOOT 3+ VIEWS RIGHT Routine 11/16/2024 5:13 PM EDT Ulcer of right foot with fat layer exposed (HCC) AEROBIC FAMILIA CHARGE (PCMIC38) Routine 11/16/2024 4:48 PM EDT AEROBIC FAMILIA CHARGE (NMIC56) Routine 11/16/2024 4:48 PM EDT SUPERFICIAL WOUND CULTURE ([facility]) Routine 11/16/2024 4:48 PM EDT from Last 3 Months Results * XR foot 3+ views right [...] DPM IMG XR PROCEDURES Final Re sult * (ABNORMAL) AEROBIC FAMILIA CHARGE (PCMIC38) (11/16/2024 4:48 PM EDT) AZITHROMYCIN <2(S) 11/18/2024 9:54 AM EDT [facility] CEFTAROLINE <0.5(S) 11/18/2024 9:54 AM EDT [facility] CIPROFLOXACIN <1(S) 11/18/2024 9:54 AM EDT [facility] CLINDAMYCIN 0.5(S) 11/18/2024 9:54 AM EDT [facility] DAPTOMYCIN 1(S) 11/18/2024 9:54 AM EDT [facility] LEVOFLOXACIN <1(S) 11/18/2024 9:54 AM EDT [facility] LINEZOLID 2(S) 11/18/2024 9:54 AM EDT [facility] OXACILLIN <0.25(S) 11/18/2024 9:54 AM EDT [facility] PENICILLIN >2(R) 11/18/2024 9:54 AM EDT [facility] TETRACYCLINE <4(S) 11/18/2024 9:54 AM EDT [facility] TRIMETHOPRIM/SULF AMETHOXAZOLE <0.5/9.5( S) 11/18/2024 9:54 AM EDT [facility] VANCOMYCIN 1(S) 11/18/2024 9:54 AM EDT [facility] Other Structure of right foot / Unknown 11/16/2024 4:48 PM EDT 11/16/2024 5:30 PM EDT Comment:Ulcer Maureen Fritz M [facility] Final Resu lt [facility] [address] [place] [address], [facility] [address] [place] [address] * (ABNORMAL) AEROBIC FAMILIA CHARGE (NMIC56) (11/16/2024 4:48 PM EDT) AMIKACIN <16(S) 11/18/2024 9:54 AM EDT [facility] AMOXACILLIN/K CLAVULANATE <8/4(S) 11/18/2024 9:54 AM EDT [facility] AMPICILLIN/SULBAC ARREDONDO 8/4(S) 11/18/2024 9:54 AM EDT [facility] AZTREONAM <4(S) 11/18/2024 9:54 AM EDT [facility] CEFAZOLIN >16(R) 11/18/2024 9:54 AM EDT [facility] CEFEPIME <2(S) 11/18/2024 9:54 AM EDT [facility] CEFTAZIDIME <1(S) 11/18/2024 9:54 AM EDT [facility] CEFTAZIDIME/AVIBA CTAM <4(S) 11/18/2024 9:54 AM EDT [facility] CEFTOLOZANE/TAZOB ACTAM <2(S) 11/18/2024 9:54 AM EDT [facility] CEFTRIAXONE <1(S) 11/18/2024 9:54 AM EDT [facility] CEFUROXIME 8(S) 11/18/2024 9:54 AM EDT [facility] CIPROFLOXACIN <0.25(S) 11/18/2024 9:54 AM EDT [facility] ERTAPENEM <0.5(S) 11/18/2024 9:54 AM EDT [facility] GENTAMICIN <2(S) 11/18/2024 9:54 AM EDT [facility] LEVOFLOXACIN <0.5(S) 11/18/2024 9:54 AM EDT [facility] MEROPENEM <1(S) 11/18/2024 9:54 AM EDT [facility] MEROPENEM/VABORBA CTAM <2(S) 11/18/2024 9:54 AM EDT [facility] PIPERACILLIN/TAZO BACTAM <8(S) 11/18/2024 9:54 AM EDT [facility] TETRACYCLINE <4(S) 11/18/2024 9:54 AM EDT [facility] TIGECYCLINE <2(S) 11/18/2024 9:54 AM EDT [facility] TOBRAMYCIN <2(S) 11/18/2024 9:54 AM EDT [facility] TRIMETHOPRIM/SULF AMETHOXAZOLE <0.5/9.5( S) 11/18/2024 9:54 AM EDT [facility] Other Structure of right foot / Unknown 11/16/2024 4:48 PM EDT 11/16/2024 5:30 PM EDT Comment:Ulcer Maureen Fritz M [facility] Final Resu lt Performing Organization Address [facility] de Phone Number [facility] [address] [place] [address], [address] [address] * SUPERFICIAL WOUND CULTURE ([facility] (11/16/2024 4:48 PM EDT) [facility] ORGANISM Klebsiella oxytoca 9:54 AM EDT [facility] QUANTITY OF GROWTH Moderate Growth 11/18/2024 9:54 AM EDT [facility] ORGANISM Staphylococcus aureus 11/18/2024 9:54 AM EDT [facility] QUANTITY OF GROWTH Heavy Growth 11/18/2024 9:54 AM EDT [facility] Other Structure of right foot / Unknown 11/16/2024 4:48 PM EDT 11/16/2024 5:30 PM EDT Comment:Ulcer Maureen Fritz DPM LAB MICROBIOLOGY - GENERAL ORDERABLES Final Result Performing Organization Address [facility] Co de Phone Number [facility] [address] [place] [address], [facility] [address] [place] [address] from Last 3 Months Insurance [employer] MEDICARE [place]ICAID [place] Care Teams Beverage Steward Relationship Specialty Start Date End Date Sandra Lewis DO [address] [facility] [place] [phone] PCP - General Family Medicine 10/15/24
--- OUTSIDE RECORDS SUMMARY | 2024-11-23 17:34 | XMS_ITS | Encounter Summary ---
Author Organization [facility] Address [address] [facility] [place] [address] Care Team Providers Care Imaging Administrator Name Role Phone Sandra Lewis Primary Care Provider [phone] Sandra Lewis DO Primary Care Provider [phone] Encounter Details Date Type Department Care Team (Late Contact Info) Description 10/30/2023 External Result Encounter [facility] External Department Unsolicited Luan Kincaid MD [address] [place] [address] Social History Tobacco Use Types Packs/Day Years [...] Podiatry [address] [place] [address] Maureen Fritz DPM [address] [place] [address] 12/11/2024 1:15 PM EDT Procedure Visit [facility] [address] [facility] [place] [address] Luan Kincaid MD [address] [facility] [address] [id number] 12/18/2024 1:15 PM EDT Procedure Visit [facility] [address] [facility] [place] [address] Luan Kincaid MD [address] [facility] [address] [phone] 01/19/2025 4:00 PM EDT Office Visit [facility] [address] [facility] [place] [address] Luan Kincaid MD [address] [facility] [address] [phone] documented as of this encounter Procedures Procedure Name Priority Date/Time Associated Diagnosis Comments XR LUMBAR SPINE 6+ VIEWS INCLUDING OBLIQUE FLEXION EXTENSION 10/30/2023 3:14 PM EDT documented in this encounter Results * XR lumbar spine 6+ views including oblique flexion extension (10/30/2023 3:14 PM EDT) Anatomical Region Laterality Modality Spine, L-spine Radiographic Michelle ging 10/30/2023 3:14 PM EDT Impressions 10/30/2023 3:17 PM EDT MULTILEVEL DEGENERATIVE DISEASE, WORST AT L5-S1. Impression dictated by: Edgar Segovia Jr., D.O.10/30/2023 3:15 PM Dictation Location: [place] [address] Transcribed By: PWS 10/30/231514 Dictated By: Edgar Segovia Jr, DO 10/30/23 151 Signed By: <Electronically signed by Edgar Segovia Jr, DO in OV> 10/30/23 1515 Narrative 10/30/2023 3:17 [place] [address] XRay Report Signed Patient: Kerry Gay MR#: [id number] 19 : 1955 Acct:[id number] Age/Sex: 67 / F ADM Date: 10/30/23 Loc: XD Room: Type: REG CLI Attending Dr: Luan Kincaid MD Copies to: Luan Kinacid MD Ordering Provider: Luan Kincaid MD Date of Service: 10/30/23 XR/XR [...] changes. XR/XR lumbar spine 6V w bending Procedure Note Radiology, Radiologist, MD - 10/30/2023 [place] [address] XRay Report Signed Patient: Kerry Gay CMR#: [id number] 19 : 8Acct:[id number] Age/Sex: 67 / FADM Date: 10/30/23 Loc: XD Room:Type: REG CLI Attending Dr: Luan Kincaid MD Copies to: Luan Kincaid MD Ordering Provider: Luan Kincaid MD Date of Service: 10/30/23 XR/XR lumbar spine 6V w bending: M54.5 LUMBAR SPINE - 8 views CLINICAL HISTORY: Bilateral leg weakness for months. COMPARISON: None FINDINGS: Vertebral body heights appear maintained. Scattered endplate andfacet joint degenerative changes with moderate disc space narrowing L5-S1 and mild disc spacenarrowing L2-L3 and L4-L5. No pathological motion on flexion or extension views. SI joints demonstratedegenerative changes. XR/XR lumbar spine 6V w bending IMPRESSION: MULTILEVEL DEGENERATIVE DISEASE, WORST AT L5-S1. Impression dictated by: Edgar Segovia Jr., D.O.10/30/2023 3:15 PM Dictation Location: [place] [address] Transcribed By: [facility] 10/30/23 1515 Dictated By: Edagr Segovia Jr, DO 10/30/23 1514 Signed By: <Electronically signed by Edgar Segovia Jr, DO inOV> 10/30/23 1515 Luan Kincaid MD IMG XR PROCEDURES Final Result documented in this encounter Visit Diagnoses Not on filedocumented in this encounter Care Teams Imaging Administrator Relationship Specialty Start Date End Date Sandra Lewis DO PCP - General Family Medicine 01/09/23 10/14/24 Sandra Lewis DO [address] [place] [address] PCP - General Family Medicine 10/15/24 documented as of this encounter
--- OUTSIDE RECORDS SUMMARY | 2024-11-23 17:34 | XMS_ITS | Encounter Summary ---
Author Organization [facility] Address [address] [place] [address] Care Team Providers Care Service Dismantler Name Role Phone Sandra Lewis DO Primary Care Provider Encounter Details Date Type Department Care Team (Late st Contact Info) Description 11/23/2024 Bamboo flowsheet [facility] [address] [place] [address] Maureen Fritz DPM [address] [place] [address] Social History Tobacco Use Types Packs/Day Years [...] 1:15 PM EDT Office Visit [facility] [address] [place] [address] Maureen Fritz DPM [address] [place], [place] [id number] 12/11/2024 1:15 PM EDT Procedure Visit [facility] [address] [facility] [place] [address] Luan Kincaid MD [address] [id number] 12/18/2024 1:15 PM EDT Procedure Visit [facility] [address] [facility] [address] [place] [address] Luan Kincaid MD [address] [id number] 01/19/2025 4:00 PM EDT Office Visit [facility] [address] [facility] [place] [address] Luan Kincaid MD [address] [id number] documented as of this encounter Visit Diagnoses Not on filedocumented in this encounter Care Teams Service Dismantler Relationship Specialty Start Date End Date Sandra Lewis DO [address] [facility] [address] PCP - General Family Medicine 10/15/24 documented as of this encounter
--- OUTSIDE RECORDS SUMMARY | 2024-11-23 17:34 | XMS_ITS | Clinical Summary ---
Author Organization [facility] Address [address] [place] [address] Phone Care Team Providers Care Material Expeditor Name Role Phone Debbie Sandra Fernandez DO Primary Care Provider [phone] Allergies Active Allergy Reactions Criticality Noted Date Comments Sulfa (Sulfonamide Antibiotics) GI intolerance,Unknown,Nausea/ vomiting 2018 Medications semaglutide (Ozempic) 1 mg/dose (4 mg/3 mL) pen injector 2 mg 1 (one) time per week. 12/11/19 23 Active omeprazole (PriLOSEC) [address] capsule Take 1 capsule (20 mg) by mouth once daily in the morning. Take before meals. 01/03/20 23 Active aspirin 81 mg EC tablet Take 1 tablet (81 mg) by mouth once daily. Active empagliflozin (Jardiance) 25 mg Take 1 tablet (25 mg) by mouth once daily. Active docusate sodium (Colace) 100 mg capsule Take 1 capsule (100 mg) by mouth 2 times a day. Active metFORMIN (Glucophage) 500 mg tablet Take 1 tablet (500 mg) by mouth 2 times daily (morning and late afternoon). Active apixaban (Eliquis) 5 mg tabletIndicatio ns:Typical atrial flutter (Multi) Take 1 tablet (5 mg) by mouth 2 times a day. 180 tablet 3 10/11/19 24 Active folic acid (Folvite) 1 mg tablet 1 tablet (1 mg) once daily. 10/16/19 24 Active insulin glargine (Touelliot Solostar- 1 unit dial) 300 unit/mL (1.5 mL) injection 20 Units. 12/13/19 23 Active HumaLOG KwikPen Insulin 100 unit/mL injection inject subcutaneously before meals and at bedtime 1:50 CORRECTIVE SCALE (EXPECT UP TO 20 UNITS/DAY 08/26/19 24 Active carvedilol (Coreg) 12.5 mg tabletIndicatio ns:Hypertension , unspecified type Take 1 tablet (12.5 mg) by mouth 2 times daily (morning and late afternoon). 180 tablet 3 03/09/20 24 025 Active furosemide (Lasix) 20 mg tabletIndicatio ns:Shortness of breath,Edema, unspecified type Take 1 tablet (20 mg) by mouth every other day. 45 tablet 3 05/07/19 25 026 Active simvastatin (Zocor) 20 mg tabletIndicatio ns:Hypercholest eremia Take 1 tablet (20 mg) by mouth once daily. 90 tablet 3 05/22/19 25 026 Active magnesium oxide (Mag-Ox) 400 mg tablet Take 1 tablet (400 mg) by mouth 2 times a day. Active donepezil (Aricept) 10 mg tablet Take 1 tablet (10 mg) by mouth 2 times a day. Active memantine (Namenda) 10 mg tablet Take 1 tablet (10 mg) by mouth 2 times a day. Active Active Problems Problem Noted Date Diagnosed Date BMI 32.0-32.9,adult 12/16/2023 High risk medication use 11/13/2023 Typical atrial flutter (Multi) 10/07/2023 Nonischemic cardiomyopathy (Multi) 10/07/2023 Diabetes (Multi) 09/17/2023 Overview (09/17/2023): Last Assessment & Plan: Assessment: on Actos, metformin and Humalog. States BG in Am 110-140, Last A1C- 6.5 Hypercholesteremia 09/17/2023 Overview (09/17/2023): Last Assessment & Plan: Assessment: on statin Hypertension 09/17/2023 Overview (09/17/2023): Last Assessment & Plan: Assessment: controlled on Lisinopril Current smoker 09/17/2023 Overview (09/17/2023): Last Assessment & Plan: Assessment: Current 40 pack year Resolved Problems Problem Noted Date Diagnosed Date Resolved Date BMI 28.0-28.9,adult 10/07/2023 12/16/19 24 Family History Medical History Relation Name Comments cabg Father Heart failure Mother heart stent Mother Relation Name Status Comments Father Mother Social History Tobacco Use Types Packs/Day Years Used Date Smoking Tobacco: Every Day Cigarettes Smokeless Tobacco: Never Tobacco Cessation:Ready to Q uit: Not Asked; Counseling Given: Not Answered Alcohol Use Standard Drinks/Week Comments Never 0 (1 standard drink = 0.6 oz pur e alcohol) Comments Unknown Sex and Gender Information Value Date Recorded Sex Assigned at Not on file Legal Sex Female 3:01 AM EDT Gender Identity Not on file Sexual Orientation Not on file Last Filed Vital Signs Vital Sign Reading Time Taken Comments Blood Pressure 116/70 06/26/2024 9:46 AM EST Pulse 62 06/26/2024 9:46 AM EST Temperature - - Respiratory Rate - - Oxygen Saturation - - Inhaled Oxygen Concentration - - Weight 94.2 kg (207 lb 9.6 oz) 06/26/2024 9:46 A M EST Height 170.2 cm (5' 7 ) 06/26/2024 9:46 AM EST Body Mass Index 32.51 06/26/2024 9:46 AM EST Plan of Treatment Upcoming Encounters Date Type Department Care Team (Late st Contact Info) Description 12/30/2024 1:40 PM EDT Office Visit [facility] [address] [facility] [address] [place] [address] Roland Faust MD 703 [facility] 2, [address] [place] [address] Health Maintenance Due Date Last Done Comments Bone Density Scan 1957 CT Colonography 1957 Colonoscopy 1957 Colorectal Cancer Screening 1957 Diabetes: Hemoglobin A1C 1957 Diabetes: Urine Protein Screening 1957 FIT-DNA (Cologuard) 1957 FIT 1957 Lipid Panel 1955 Medicare Annual Wellness Vis it (AWV) 1957 Sigmoidoscopy 1957 Diabetes: Retinopathy Screening 11/26/1967 Hepatitis C Screening 11/26/1975 Pneumococcal Vaccine (1 of 2 - PCV) 1976 DTaP/Tdap/Td Vaccines (1 - Tdap) 11/26/1979 Zoster Vaccines (1 of 2) 11/26/2007 RSV High Risk: (Elderly (60+ ) or Population) (1 - Risk 60-74 years 1-dose series) 2017 Mammogram 06/10/2021 06/10/2020 COVID-19 Vaccine (1 - 2023-2 5 season) 2023 Influenza Vaccine (#1) 2024 MMR Vaccines Completed 04/02/2002 HIB Vaccines Aged Out No longer eligi ble based on patient's age to complete this topic HPV Vaccines Aged Out No longer eligi ble based on patient's age to complete this topic Hepatitis A Vaccines Aged Out No long er eligible based on patient's age to complete this topic Hepatitis B Vaccines Aged Out No long er eligible based on patient's age to complete this topic IPV Vaccines Aged Out No longer eligi ble based on patient's age to complete this topic Meningococcal Vaccine Aged Out No babita adolfo eligible based on patient's age to complete this topic Rotavirus Vaccines Aged Out No longer eligible based on patient's age to complete this topic Insurance MEDICAID DUAL COMPLETE MEDICAID DUAL COMPLETE Care Teams Material Expeditor Relationship Specialty Start Date End Date Sandra Lewis DO [address] [place] [address] PCP - General Family Medicine 09/25/23
--- OUTSIDE RECORDS SUMMARY | 2024-11-23 17:34 | XMS_ITS | Encounter Summary ---
Author Organization [facility] Address [address] [facility] [place] [address] Care Team Providers Care Shaker Screen Operator Name Role Phone Sandra Lewis Primary Care Provider [phone] Sandra Lewis DO Primary Care Provider [phone] Encounter Details Date Type Department Care Team (Late Contact Info) Description 12/17/2023 External Result Encounter [facility] External Department Unsolicited Luan Kincaid MD [address] [facility] [place] [address] Social History Tobacco Use Types Packs/Day Years [...] Podiatry [address] [place] [address] Maureen Fritz DPM [address] [place] [address] 12/11/2024 1:15 PM EDT Procedure Visit [facility] [address] [facility] [place] [address] Luan Kincaid MD 5319 [facility] [address] [id number] 12/18/2024 1:15 PM EDT Procedure Visit [facility] [address] [facility] [address] [place] [address] Luan Kincaid MD 5319 [facility] [address], [place] [id number] 01/19/2025 4:00 PM EDT Office Visit [facility] [address] [facility] [place] [address] Luan Kincaid MD 5319 [facility] [address] [phone] documented as of this encounter Procedures Procedure Name Priority Date/Time Associated Diagnosis Comments MR LUMBAR SPINE WO CONTRAST 12/17/2023 12:40 PM EDT documented in this encounter Results * MR lumbar spine wo contrast (12/17/2023 12:40 PM EDT) Anatomical Region Laterality Modality Spine, L-spine Magnetic Resonan ce 12/17/2023 12:4 0 PM EDT Impressions 12/17/2023 12:53 PM EDT There is a slight dextro convex curvature of the lumbar spine similar to the prior exam. Multilevel degenerative change is noted throughout the lumbar spine. There are varying degrees of spinal canal and neural foraminal stenosis as described above. Impression dictated by: Luan Bowling M.D.12/17/2023 12:50 PM Dictation Location: [place] [address] Transcribed By: [facility] 12/17/23 1250 Dictated By: Luan Bowling II, MD 12/17/23 1240 Signed By: <Electronically signed by Luan Bowling II, MD in OV> 12/17/23 1250 Narrative 12/17/2023 12:53 PM EDT [facility] Main [place] [address] [place] [address] MRI Report Signed Patient: Kerry Gay MR#: [id number] 19 : 1955 Acct:[id number] Age/Sex: 68 / F ADM Date: 12/17/23 Loc: [facility] Room: Type: REG CLI Attending Dr: Luan Kincaid MD Copies to: Luan Kincaid MD Ordering Provider: Luan Kincaid MD Date of Service: 12/17/23 MR/MR lumbar spine wo con: m54.17 ([id number]) XR/XR pre/post mri xray: post MRI lumbar [...] canal narrowing. MR/MR lumbar spine wo con Procedure Note Radiology, Radiologist, - 12/17/2023 [facility] Main [place] [address] [place] [address] MRI Report Signed Patient: Kerry Gay CMR#: [id number] [birth year] : 8Acct:[id number] Age/Sex: 68 / FADM Date: 12/17/23 [facility] Room:Type: [facility] Attending Dr: Luan Kincaid MD Copies to: Luan Kincaid MD Ordering Provider: Luan Kincaid MD Date of Service: 12/17/23 MR/MR lumbar spine wo con: m54.17 ([id number]) XR/XR pre/post mri xray: post MRI lumbar MR lumbar spine wo con, XR pre/post mri xray 12/17/2023 10:02 AM SIGNS AND SYMPTOMS: Back pain, unsteady gait PROTOCOL: Multiplanar multisequence MR images of the lumbar spine wereobtained without IV contrast. Frontal and lateral graphs of the lumbar spine were obtained. COMPARISON: 10/30/2023 FINDINGS: Radiographs of the lumbar spine: There is a dextro convex curvature of the lumbar spine similar to theprior exam. Surgical clips are present in the right upper quadrant consistent with prior cholecystectomy.There is moderate disc height loss at L4-5 and L5-S1 with mild disc height loss throughoutotherwise. There is accompanying anterior osteophyte formation and facet. Atherosclerotic changes are notedin the abdominal aorta. MRI lumbar spine: The bones of the lumbar spine are in anatomic alignment. There ispreservation of vertebral body heights. There is Schmorl's node formation in the superior endplate of theL3 vertebral body. There is accompanying mild Modic type I endplate edema at L2-L3. The marrowsignal is within normal limits otherwise. Disc height loss is as noted above. The conus terminates at theinferior endplate of the L1 vertebral body level. No epidural or paraspinous fluid collection isappreciated. At T12-L1: There is a central disc protrusion contributing to mild spinalcanal stenosis with no significant neural foraminal narrowing. At L1-L2: There is a broad-based disc bulge with facet hypertrophy andligamentum flavum thickening. There is mild spinal canal stenosis with mild bilateral neural foraminalnarrowing. At L2-L3: There is a circumferential disc bulge with facet hypertrophy andligamentum flavum thickening. There is moderate spinal canal stenosis. There is moderateleft and mild right neural foraminal narrowing. At L3-L4: There is a broad-based disc bulge with facet hypertrophy andligamentum flavum thickening. There is mild spinal canal stenosis with mild bilateral neural foraminalnarrowing. At L4-L5: There is a broad-based disc bulge with facet hypertrophy. Thereis mild spinal canal narrowing with moderate bilateral neural foraminal stenosis. At L5-S1: Facet degenerative changes are present bilaterally. There isendplate osteophyte formation. There is moderate bilateral neural foraminal narrowing withminimal spinal canal narrowing. MR/MR lumbar spine wo con IMPRESSION: There is a slight dextro convex curvature of the lumbar spine similar tothe prior exam. Multilevel degenerative change is noted throughout the lumbar spine. Thereare varying degrees of spinal canal and neural foraminal stenosis as described above. Impression dictated by: Luan Bowling M.D.12/17/2023 12:50 PM Dictation Location: [place] [address] Transcribed By: [facility] 12/17/23 1250 Dictated By: Luan Bowling II, MD 12/17/23 1240 Signed By: <Electronically signed by Luan Bowling II, inOV> 12/17/23 1250 us Luan Kincaid MD IMG MRI PROCEDURES Final Result documented in this encounter Visit Diagnoses Not on filedocumented in this encounter Care Teams Shaker Screen Operator Relationship Specialty Start Date End Date Sandra Lewis DO PCP - General Family Medicine 01/09/23 10/14/24 Sandra Lewis DO [address] [place] [address] PCP - General Family Medicine 10/15/24 documented as of this encounter
--- OUTSIDE RECORDS SUMMARY | 2024-11-23 17:34 | XMS_ITS | Encounter Summary ---
Author Organization [facility] Address [address] [place] [address] Phone Care Team Providers Care Museum Host/Hostess Name Role Phone Sandra Lewis DO Primary Care Provider [phone] Encounter Details Date Type Department Care Team (Late st Contact Info) Description 11/09/2023 Scanned Document [facility] [address] [place] [phone] Scanning, Generic Provider Social History Tobacco Use [...] Description 12/30/2024 1:40 PM EDT Office Visit [place] [address] [facility] [address] [place] [address] Roland Faust MD 703 [facility] 2, [address] [place] [address] documented as of this encounter Visit Diagnoses Not on filedocumented in this encounter Additional Health Concerns Assessment Noted Time A fall risk assessment has been complete d for the patient 10/07/2023 9:51 AM EDT documented as of this encounter Care Teams Museum Host/Hostess Relationship Specialty Start Date End Date Sandra Lewis DO [address] [place] [address] PCP - General Family Medicine 09/25/23 documented as of this encounter
--- OUTSIDE RECORDS SUMMARY | 2024-11-23 17:34 | XMS_ITS | Encounter Summary ---
Author Organization [facility] Address [address] [place] [address] Care Team Providers Care Electric Meter Technician Name Role Phone Darrell Weinstein Primary Care Provider [phone] Nereida Castro MD Unavailable [phone] Source Comments In the event this information is protected by the Federal Confidentiality of Alcohol and Drug AbusePatient Records regulations: The Federal rules restrict any use of the information to criminally investigate or prosecute any alcohol or drug abuse patient.[facility] Encounter Details Date Type Department Care Team (Late st Contact Info) Description 2022 [place] [address] Provider, f Medicare Coverage of Physical Exams Social History Tobacco Use Types Packs/Day Years [...] N ot on file 04/03/2020 Data from: https://www.neighborhoodatlas.medicine.[facility].edu/. Last address used for calculation Not on file 04/03/2020 Comments No Sex and Gender Information Value Date Recorded Sex Assigned at Not on file Legal Sex Female 10:19 AM EST Gender Identity Not on file Sexual Orientation Not on file documented as of this encounter Plan of Treatment Not on file documented as of this encounter Visit Diagnoses Not on filedocumented in this encounter Care Teams Electric Meter Technician Relationship Specialty Start Date End Date Darrell Weinstein [address] [facility] [address] [place] [address] PCP - General Family Medicine 11/06/18 Nereida Castro MD [address] [facility] [address] [place] [address] Referring Obstetrics 11/06/18 documented as of this encounter
--- OUTSIDE RECORDS SUMMARY | 2024-11-23 17:34 | XMS_ITS | Encounter Summary ---
Author Organization [facility] Address [address] [place] [address] Care Team Providers Care Director Drug Safety Name Role Phone Sandra Lewis Primary Care Provider [phone] Sandra Lewis DO Primary Care Provider [phone] Encounter Details Date Type Department Care Team (Late Contact Info) Description 12/13/2023 Orders Only [facility] [address] [place] [phone] Luan Kincaid MD [address] [place], [place] [phone] Social History Tobacco Use Types Packs/Day Years [...] Encounters Date Type Department Care Team (Late Contact Info) Description 11/30/2024 1:15 PM EDT Office Visit [facility] [address] [place] [phone] Maureen Fritz, DPM [address] [facility] [address] [place] [address] 12/11/2024 1:15 PM EDT Procedure Visit [facility] [address] [place] [address] Luan Kincaid MD [address] [id number] 12/18/2024 1:15 PM EDT Procedure Visit [facility] [address] [facility] [address] [place] [address] Luan Kincaid MD [address] [phone] 01/19/2025 4:00 PM EDT Office Visit [facility] [address] [facility] [address] [place] [address] Luan Kincaid MD [address] [phone] documented as of this encounter Visit Diagnoses Not on filedocumented in this encounter Care Teams Director Drug Safety Relationship Specialty Start Date End Date Sandra Lewis DO PCP - General Family Medicine 01/09/23 10/14/24 Sandra Lewis DO 2520 [facility] [place] [address] PCP - General Family Medicine 10/15/24 documented as of this encounter
--- OUTSIDE RECORDS SUMMARY | 2024-11-23 17:35 | XMS_ITS | Encounter Summary ---
Author Organization [facility] Address [address] [place] [address] Phone Care Team Providers Care Fnp Name Role Phone Sandra Lewis DO Primary Care Provider [phone] Encounter Details Date Type Department Care Team (Late st Contact Info) Description 11/11/2023 Scanned Document [facility] [address] [place] [phone] Scanning, Generic Provider Social History Tobacco Use [...] Description 12/30/2024 1:40 PM EDT Office Visit [facility] 703 [facility] [address] [place] [address] Roland Faust MD 703 [facility] [address], [address] [place] [address] documented as of this encounter Visit Diagnoses Not on filedocumented in this encounter Additional Health Concerns Assessment Noted Time A fall risk assessment has been complete d for the patient 10/07/2023 9:51 AM EDT documented as of this encounter Care Teams Fnp Relationship Specialty Start Date End Date Sandra Lewis DO 2520 [facility] [place] [address] PCP - General Family Medicine 09/25/23 documented as of this encounter
--- OUTSIDE RECORDS SUMMARY | 2024-11-23 17:35 | XMS_ITS | Encounter Summary ---
Author Organization [facility] Address [address] [place] [address] Care Team Providers Care Emg Technician Name Role Phone Sandra Lewis DO Primary Care Provider [phone] Encounter Details Date Type Department Care Team (Late st Contact Info) Description 11/18/2024 Telephone [facility] [place] [facility] [address] [place] [address] Maureen Fritz DPM [address] [place] [address] Social History Tobacco Use Types Packs/Day Years [...] Encounter - Beatrice Boyd MA - 11/18/2024 1:29 PM EDT Patient was called regarding the above. Patient verbally acknowledged and expressed understanding. * Telephone Encounter - Maureen Fritz DPM - 11/18/2024 10:15 AM EDT Please advise patient that the recent wound culture was (+) for growth of bacteria. The medication that was prescribed at her recent office visit is effective against this bacteria. she should continue taking this medication as prescribed until complete. Please advise us if she develops any side effects from use of the medication and to take it with food to help prevent GI upset. documented in this encounter Plan of Treatment Upcoming Encounters Date Type Department Care Team (Late st Contact Info) Description 11/30/2024 1:15 PM EDT Office Visit [facility] [place] [facility] [address] [place] [address] Maureen Fritz DPM [address] [place] [address] 12/11/2024 1:15 PM EDT Procedure Visit [facility] [address] [place] [address] Luan Kincaid MD [address] [place] [address] 12/18/2024 1:15 PM EDT Procedure Visit [facility] [address] [place] [address] Luan Kincaid MD [address] [place] [address], [place] [address] 01/19/2025 4:00 PM EDT Office Visit [facility] [address] [place] [address] Luan Kincaid MD [address] [place] [address], [place] [address] documented as of this encounter Visit Diagnoses Not on filedocumented in this encounter Care Teams Emg Technician Relationship Specialty Start Date End Date Sandra Lewis DO [address] [facility] [place] [address] PCP - General Family Medicine 10/15/24 documented as of this encounter
--- OUTSIDE RECORDS SUMMARY | 2024-11-23 17:35 | XMS_ITS | Encounter Summary ---
Author Organization [facility] Address [address] [place] [address] Care Team Providers Care Command And Control Name Role Phone Sandra Lewis DO Primary Care Provider [phone] Encounter Details Date Type Department Care Team (Latest Contact Info) Description 11/23/2024 Travel Social History Tobacco Use Types Packs/Day Years [...] Podiatry [address] [place] [address] Maureen Fritz DPM [address] [place] [address] 12/11/2024 1:15 PM EDT Procedure Visit [facility] [address] [place] [address] Luan Kincaid MD [address] [address] 12/18/2024 1:15 PM EDT Procedure Visit [facility] [address] [facility] [place] [address] Luan Kincaid MD [address] [phone] 01/19/2025 4:00 PM EDT Office Visit [facility] [address] [facility] [place] [address] Luan Kincaid MD [address] [id number] documented as of this encounter Visit Diagnoses Not on filedocumented in this encounter Care Teams Command And Control Relationship Specialty Start Date End Date Sandra Lewis DO [address] [place] [address] PCP - General Family Medicine 10/15/24 documented as of this encounter
--- OUTSIDE RECORDS SUMMARY | 2024-11-23 17:35 | XMS_ITS | Encounter Summary ---
Author Organization [facility] Address [address] [place] [address] Phone Care Team Providers Care Life Consultant Name Role Phone Sandra Lewis DO Primary Care Provider [phone] Encounter Details Date Type Department Care Team (Late st Contact Info) Description 11/12/2023 Scanned Document [facility] [address] [place] [phone] Scanning, Generic Provider Social History Tobacco Use [...] Description 12/30/2024 1:40 PM EDT Office Visit [facility] [address] [facility] [address] [place] [address] Roland Faust MD [address] [facility] [address] [place] [address] documented as of this encounter Visit Diagnoses Not on filedocumented in this encounter Additional Health Concerns Assessment Noted Time A fall risk assessment has been complete d for the patient 10/07/2023 9:51 AM EDT documented as of this encounter Care Teams Life Consultant Relationship Specialty Start Date End Date Sandra Lewis DO [address] [facility] [place] [address] PCP - General Family Medicine 09/25/23 documented as of this encounter
--- OUTSIDE RECORDS SUMMARY | 2024-11-23 17:35 | XMS_ITS | Encounter Summary ---
Author Organization [facility] Address [address] [place] [address] Phone Care Team Providers Care Computer Field Technician Name Role Phone Sandra Lewis DO Primary Care Provider [phone] Encounter Details Date Type Department Care Team (Late st Contact Info) Description 11/10/2023 Scanned Document [facility] [address] [place] [phone] Scanning, Generic Provider Social History Tobacco Use [...] Description 12/30/2024 1:40 PM EDT Office Visit [facility] [address] [facility] [address] [place] [address] Roland Faust MD [address] [facility] [address] [place] [address] documented as of this encounter Procedures Procedure Name Priority Date/Time Associated Diagnosis Comments ECHOCARDIOGRAM 11/10/2023 documented in this encounter Results * Echocardiogram (11/10/2023) Narrative 11/10/2023 Ordered by an unspecified provider. us Generic Provider Scanning CV ECHO PROCEDURES Fin al Result documented in this encounter Visit Diagnoses Not on filedocumented in this encounter Additional Health Concerns Assessment Noted Time A fall risk assessment has been complete d for the patient 10/07/2023 9:51 AM EDT documented as of this encounter Care Teams Computer Field Technician Relationship Specialty Start Date End Date Sandra Lewis DO [address] [facility] [place] [address] PCP - General Family Medicine 09/25/23 documented as of this encounter
--- OUTSIDE RECORDS SUMMARY | 2024-11-23 17:35 | XMS_ITS | Encounter Summary ---
Author Organization [facility] Address [address] [place] [address] Phone Care Team Providers Care Raw Scales Operator Name Role Phone Sandra Lewis DO Primary Care Provider [phone] Encounter Details Date Type Department Care Team (Late st Contact Info) Description 01/06/2024 Scanned Document [facility] [address] [place] [phone] Scanning, Generic Provider Social History Tobacco Use [...] suspected to have Coronavirus/COVID-19? No / Unsure 12/16/2023 10:31 AM EDT documented as of this encounter Plan of Treatment Upcoming Encounters Date Type Department Care Team (Late st Contact Info) Description 12/30/2024 1:40 PM EDT Office Visit [facility] 7[address] [facility] [address] [place] [address] Roland Faust MD [address] [facility] [address] [place] [address] Scheduled Orders Name Type Priority Associated Diagnoses Orde r Schedule Ultrasound- OnBase Scan Imaging O rdered: 01/06/2024 documented as of this encounter Visit Diagnoses Not on filedocumented in this encounter Additional Health Concerns Assessment Noted Time A fall risk assessment has been complete d for the patient 12/16/2023 10:41 AM EDT documented as of this encounter Care Teams Raw Scales Operator Relationship Specialty Start Date End Date Sandra Lewis DO [address] [place] [address] PCP - General Family Medicine 09/25/23 documented as of this encounter
--- OUTSIDE RECORDS SUMMARY | 2024-11-23 17:35 | XMS_ITS | Encounter Summary ---
Author Organization [facility] Address [address] [place] [address] Phone Care Team Providers Care Photocopying Equipment Mechanic Name Role Phone Sandra Lewis DO Primary Care Provider Encounter Details Date Type Department Care Team (Late st Contact Info) Description 04/28/2024 Scanned Document [facility] [address] [place] [phone] Scanning, Generic Provider Social History Tobacco Use [...] Description 12/30/2024 1:40 PM EDT Office Visit [facility] [address] [address] Roland Faust MD 703 [facility] 2, [address] [place] [address] documented as of this encounter Procedures Procedure Name Priority Date/Time Associated Diagnosis Comments OUTSIDE IMAGING SCAN 04/28/2024 documented in this encounter Results * OUTSIDE IMAGING SCAN (04/28/2024) Anatomical Region Laterality Modality Other Narrative 04/28/2024 Ordered by an unspecified provider. us Generic Provider Scanning OUTSIDE SCAN Final Result documented in this encounter Visit Diagnoses Not on filedocumented in this encounter Additional Health Concerns Assessment Noted Time A fall risk assessment has been complete d for the patient 12/16/2023 10:41 AM EDT documented as of this encounter Care Teams Photocopying Equipment Mechanic Relationship Specialty Start Date End Date Sandra Lewis DO [address] [place] [address] PCP - General Family Medicine 09/25/23 documented as of this encounter
--- OUTSIDE RECORDS SUMMARY | 2024-11-23 17:35 | XMS_ITS | Encounter Summary ---
Author Organization [facility] Address [address] [place] [address] Care Team Providers Care Smooth Plater Name Role Phone Sandra Lewis DO Primary Care Provider Encounter Details Date Type Department Care Team (Late st Contact Info) Description 11/16/2024 External Result Encounter [facility] External Department Unsolicited Maureen Fritz DPM [address] [place] [address] Social History Tobacco Use Types Packs/Day Years [...] 11/30/2024 1:15 PM EDT Office Visit [facility] [address] [place] [address] Maureen Fritz DPM [address] [place] [address] 12/11/2024 1:15 PM EDT Procedure Visit [facility] [address] [place] [address] Luan Kincaid MD [address] [facility] [address] [place] [address] 12/18/2024 1:15 PM EDT Procedure Visit [facility] [address] [place] [address] Luan Kincaid MD [address], [place] [phone] 01/19/2025 4:00 PM EDT Office Visit [facility] [address] [facility] [address] [place] [address] Luan Kincaid MD [address] [facility] [address], [place] [phone] documented as of this encounter Procedures Procedure Name Priority Date/Time Associated Diagnosis Comments AEROBIC FAMILIA CHARGE (PCMIC38) Routine 11/16/2024 4:48 PM EDT AEROBIC FAMILIA CHARGE (NMIC56) Routine 11/16/2024 4:48 PM EDT SUPERFICIAL WOUND CULTURE (FR) Routine 11/16/2024 4:48 PM EDT documented in this encounter Results * (ABNORMAL) AEROBIC FAMILIA CHARGE (PCMIC38) (11/16/2024 4:48 PM EDT) AZITHROMYCIN <2(S) 11/18/2024 9:[address] [facility] CEFTAROLINE <0.5(S) 11/18/2024 9:[address] [facility] CIPROFLOXACIN <1(S) 11/18/2024 9:[address] [facility] CLINDAMYCIN 0.5(S) 11/18/2024 9:[address] [facility] DAPTOMYCIN 1(S) 11/18/2024 9:[address] [facility] LEVOFLOXACIN <1(S) 11/18/2024 9:[address] [facility] LINEZOLID 2(S) 11/18/2024 9:[address] [facility] OXACILLIN <0.25(S) 11/18/2024 9:[address] [facility] PENICILLIN >2(R) 11/18/2024 9:[address] [facility] TETRACYCLINE <4(S) 11/18/2024 9:[address] [facility] TRIMETHOPRIM/SULF AMETHOXAZOLE <0.5/9.5( S) 11/18/2024 9:[address] [facility] VANCOMYCIN 1(S) 11/18/2024 9:[address] [facility] Other Structure of right foot / Unknown 11/16/2024 4:48 PM EDT 11/16/2024 5:30 PM EDT Comment:Ulcer us Maureen Fritz M [facility] Final Resu lt [facility] [address] [id number], [facility] [address] [id number] * (ABNORMAL) AEROBIC FAMILIA CHARGE (NMIC56) (11/16/2024 4:48 PM EDT) AMIKACIN <16(S) 11/18/2024 9:[address] [facility] AMOXACILLIN/K CLAVULANATE <8/4(S) 11/18/2024 9:[address] [facility] AMPICILLIN/SULBAC ARREDONDO 8/4(S) 11/18/2024 9:[address] [facility] AZTREONAM <4(S) 11/18/2024 9:[address] [facility] CEFAZOLIN >16(R) 11/18/2024 9:[address] [facility] CEFEPIME <2(S) 11/18/2024 9:[address] [facility] CEFTAZIDIME <1(S) 11/18/2024 9:[address] [facility] CEFTAZIDIME/AVIBA CTAM <4(S) 11/18/2024 9:[address] [facility] CEFTOLOZANE/TAZOB ACTAM <2(S) 11/18/2024 9:[address] [facility] CEFTRIAXONE <1(S) 11/18/2024 9:[address] [facility] CEFUROXIME 8(S) 11/18/2024 9:[address] [facility] CIPROFLOXACIN <0.25(S) 11/18/2024 9:[address] [facility] ERTAPENEM <0.5(S) 11/18/2024 9:[address] [facility] GENTAMICIN <2(S) 11/18/2024 9:[address] [facility] LEVOFLOXACIN <0.5(S) 11/18/2024 9:[address] [facility] MEROPENEM <1(S) 11/18/2024 9:[address] [facility] MEROPENEM/VABORBA CTAM <2(S) 11/18/2024 9:[address] [facility] PIPERACILLIN/TAZO BACTAM <8(S) 11/18/2024 9:[address] [facility] TETRACYCLINE <4(S) 11/18/2024 9:[address] [facility] TIGECYCLINE <2(S) 11/18/2024 9:[address] [facility] TOBRAMYCIN <2(S) 11/18/2024 9:[address] [facility] TRIMETHOPRIM/SULF AMETHOXAZOLE <0.5/9.5( S) 11/18/2024 9:[address] [facility] Other Structure of right foot / Unknown 11/16/2024 4:48 PM EDT 11/16/2024 5:30 PM EDT Comment:Ulcer Maureen Fritz DPM [facility] Final Resu lt Performing Organization Address [facility] Co de Phone Number [facility] [address] [facility] [place] [address], [facility] [address] [place] [address] * SUPERFICIAL WOUND CULTURE ([facility]) (11/16/2024 4:48 PM EDT) [facility] ORGANISM Klebsiella oxytoca 9:[address] [facility] QUANTITY OF GROWTH Moderate Growth 11/18/2024 9:[address] [facility] ORGANISM Staphylococcus aureus 11/18/2024 9:[address] [facility] QUANTITY OF GROWTH Heavy Growth 11/18/2024 9:54 AM EDT [facility] Other Structure of right foot / Unknown 11/16/2024 4:48 PM EDT 11/16/2024 5:30 PM EDT Comment:Ulcer Maureen Fritz DPM LAB MICROBIOLOGY - GENERAL ORDERABLES Final Result Performing Organization Address [facility] Co de Phone Number [facility] [address] [facility] [place] [address], [facility] [address] [place] [address] documented in this encounter Visit Diagnoses Not on filedocumented in this encounter Care Teams Smooth Plater Relationship Specialty Start Date End Date Sandra Lewis DO [address] [facility] [place] [address] PCP - General Family Medicine 10/15/24 documented as of this encounter
--- OUTSIDE RECORDS SUMMARY | 2024-11-23 17:35 | XMS_ITS | Encounter Summary ---
Author Organization [facility] Address [address] [place] [address] Phone Care Team Providers Care Senior Foreman Name Role Phone Sandra Lewis DO Primary Care Provider [phone] Encounter Details Date Type Department Care Team (Late st Contact Info) Description 04/30/2024 Scanned Document [facility] [address] [place] [phone] Scanning, Generic Provider Social History Tobacco Use [...] Description 12/30/2024 1:40 PM EDT Office Visit [facility] 703 [facility] [address] [place] [address] Roland Faust MD 703 [facility] [address] [place] [address] documented as of this encounter Visit Diagnoses Not on filedocumented in this encounter Additional Health Concerns Assessment Noted Time A fall risk assessment has been complete d for the patient 12/16/2023 10:41 AM EDT documented as of this encounter Care Teams Senior Foreman Relationship Specialty Start Date End Date Sandra Lewis DO [address] [place] [address] PCP - General Family Medicine 09/25/23 documented as of this encounter
--- OUTSIDE RECORDS SUMMARY | 2024-11-23 17:35 | XMS_ITS | Encounter Summary ---
Author Organization [facility] Address [address] [place] [address] Care Team Providers Care Water Reuse Program Manager Name Role Phone Sandra Lewis DO Primary Care Provider [phone] Encounter Details Date Type Department Care Team (Latest Contact Info) Description 11/16/2024 Travel Social History Tobacco Use Types Packs/Day [...] Podiatry [address] [place] [address] Maureen Fritz DPM [address] [place] [address] 12/11/2024 1:15 PM EDT Procedure Visit [facility] [address] [place] [address] Luan Kincaid MD [address] [address] 12/18/2024 1:15 PM EDT Procedure Visit [facility] [address] [facility] [place] [address] Luan Kincaid MD [address] [phone] 01/19/2025 4:00 PM EDT Office Visit [facility] [address] [facility] [place] [address] Luan Kincaid MD [address] [phone] documented as of this encounter Visit Diagnoses Not on filedocumented in this encounter Care Teams Water Reuse Program Manager Relationship Specialty Start Date End Date Sandra Lewis DO [address] [place] [address] PCP - General Family Medicine 10/15/24 documented as of this encounter
[2024-11-23 17:36] VITALS: BP 120/76; PULSE 78; TEMP 36.7; O2SAT 99; BMI 31.3
--- NOTE | 2024-11-23 17:46 | ED.GENADUL1 ---
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 She has had a hole in her foot for about a month and there is purulent drainage today at the animal science instructor office. She was told to come here to be admitted for IV antibiotics and possible surgery. She does not complain to me of pain. Related Data Home Medications ?Medication ?Instructions ?Recorded ?Confirmed apixaban 5 mg tablet (Eliquis) 5 mg PO Q12H 10/05/24 11/23/24 aspirin 81 mg tablet 81 mg PO DAILY 10/05/24 11/23/24 bupropion HCl 150 mg 24 hr tablet, 150 mg PO DAILY 10/05/24 11/23/24 extended release carvedilol 12.5 mg tablet 12.5 mg PO Q12H 10/05/24 11/23/24 donepezil 10 mg tablet 10 mg PO BID 10/05/24 11/23/24 empagliflozin 25 mg tablet 25 mg PO DAILY 10/05/24 11/23/24 (Jardiance) folic acid 1 mg tablet 1 mg PO DAILY 10/05/24 11/23/24 furosemide 20 mg tablet 20 mg PO QMWFSA 10/05/24 11/23/24 insulin glargine U-300 conc subcut 10/05/24 memantine 10 mg tablet 10 mg PO BID 10/05/24 11/23/24 metformin 500 mg tablet 500 mg PO BID 10/05/24 11/23/24 nortriptyline 25 mg capsule 25 mg PO DAILY 10/05/24 11/23/24 omeprazole 20 mg capsule,delayed 40 mg PO DAILY 10/05/24 11/23/24 release pregabalin 150 mg capsule 300 mg PO Q12H 10/05/24 11/23/24 semaglutide 1 mg/dose (4 mg/3 mL) 2 mg subcut .weekly 10/05/24 11/23/24 subcutaneous pen injector (Ozempic) simvastatin 20 mg tablet 40 mg PO DAILY 10/05/24 11/23/24 doxycycline hyclate 100 mg tablet 100 mg PO Q12H 11/23/24 11/23/24 insulin glargine U-300 conc 300 22 unit subcut Q24H 11/23/24 11/23/24 unit/mL (1.5 mL) subcutaneous pen ([employer] SoloStar U-300 Insulin) insulin lispro 100 unit/mL 1 sliding scale dose subcut 11/23/24 subcutaneous pen magnesium oxide 400 mg (241.3 mg mg 11/23/24 magnesium) tablet Previous Rx's ?Medication ?Instructions ?Recorded tramadol 50 mg tablet 50 mg PO BID PRN pain #60 tabs 10/05/24 Allergies Allergy/AdvReac Type Severity Reaction Status Date / Time Sulfa (Sulfonamide Allergy Mild Vomiting Verified 11/23/24 17:32 Antibiotics) Opioid HPI Opioid Management Most Recent Opioid Data: Last Pain Scale 8 11/09/24, 10:08 Review of Systems ROS Narrative A ten point review of systems is negative except as noted above. [facility] Medical History (Updated 11/23/24 @ 18:52 by Robi Coy MD) Low back pain ?M54.50 - Low back pain, unspecified (ICD-10) Neck pain ?M54.2 - Cervicalgia (ICD-10) Heartburn ?R12 - Heartburn (ICD-10) Acid reflux ?K21.9 - Gastro-esophageal reflux disease without esophagitis (ICD-10) Diabetes ?E11.9 - Type 2 diabetes mellitus without complications (ICD-10) Sleep apnea ?G47.30 - Sleep apnea, unspecified (ICD-10) Smoker ?F17.200 - Nicotine dependence, unspecified, uncomplicated (ICD-10) High cholesterol ?E78.00 - Pure hypercholesterolemia, unspecified (ICD-10) Hypertension ?I10 - Essential (primary) hypertension (ICD-10) Atrial fibrillation ?I48.91 - Unspecified atrial fibrillation (ICD-10) Congestive heart failure ?I50.9 - Heart failure, unspecified (ICD-10) Angina at rest ?I20.89 - Other forms of angina pectoris (ICD-10) Surgical History (Updated 11/03/24 @ 11:49 by Melina Presley) H/O eye surgery ?Z98.890 - Other specified postprocedural states (ICD-10) History of cholecystectomy ?Z90.49 - Acquired absence of other specified parts of digestive tract (ICD-10) H/O: hysterectomy ?Z90.710 - Acquired absence of both cervix and uterus (ICD-10) S/P tonsillectomy and adenoidectomy ?Z90.89 - Acquired absence of other organs (ICD-10) Social History Little interest or pleasure in doing things: not at all Feeling down, depressed, or hopeless: several days Exam Narrative Exam Narrative: Nurses note and vital signs reviewed and patient is not hypoxic. General: The patient appears well and in no apparent distress. Patient is resting comfortably on cart. Skin: Warm, dry, no pallor noted. There is no rash noted. Head: Normocephalic, atraumatic Eye: Normal conjunctiva, no drainage Ears, Nose, Mouth, and Throat: oral mucosa is moist. Nares patent. Cardiovascular: Regular Rate and Rhythm Respiratory: Patient is in no distress, no accessory muscle use, lungs are clear to auscultation, no wheezing, rales or rhonchi Back: non-tender GI: Soft and nontender Musculoskeletal: The right foot is examined. There are 2 adjacent open areas on the plantar aspect of her right foot, near the distal aspect of the first metatarsal. There is some mild erythema. Neurological: A&O, normal speech Psychiatric: Cooperative Constitutional Vital Signs, click to edit/add: Last Vital Signs Temp 98.0 F 11/23/24 17:36 Pulse 78 11/23/24 17:36 Resp 16 11/23/24 17:36 BP 120/76 11/23/24 17:36 Pulse Ox 99 11/23/24 17:36 O2 Del Method Room Air 11/23/24 17:36 Course Vital Signs Vital signs: Vital Signs Temperature 98.0 F 11/23/24 17:36 Pulse Rate 78 11/23/24 17:36 Respiratory Rate 16 11/23/24 17:36 Blood Pressure 120/76 11/23/24 17:36 Pulse Oximetry 99 11/23/24 17:36 Oxygen Delivery Method Room Air 11/23/24 17:36 Temperature 98.0 F 11/23/24 17:36 Pulse Rate 78 11/23/24 17:36 Respiratory Rate 16 11/23/24 17:36 Blood Pressure 120/76 11/23/24 17:36 Pulse Oximetry 99 11/23/24 17:36 Oxygen Delivery Method Room Air 11/23/24 17:36 Medical Decision Making MDM Narrative Medical decision making narrative: ESR and CRP are elevated. X-ray does not show any definite evidence of osteomyelitis though I have a high clinical suspicion for it. She was started on IV Zosyn and vancomycin. I spoke to Dr. Martinez and the patient is being admitted for IV antibiotics and podiatry consultation. Treatment diagnosis and disposition were discussed with the patient. Differential Diagnosis Differential Diagnosis: Abscess, cellulitis, osteomyelitis Lab Data Lab results reviewed: Yes I reviewed the patient's lab results Labs: Lab Results 11/23/24 Range/Units 17:57 WBC 10.5 (4.0-11.0) 10^3/uL RBC 5.14 (4.20-5.40) 10^6/uL Hgb 16.3 H (12.0-16.0) g/dL Hct 49.9 H (36.0-48.0) % MCV 97.1 (81.0-99.0) fL MCH 31.7 (26.7-34.0) pg MCHC 32.7 (29.9-35.2) g/dL RDW 13.4 (11.0-15.0) % Plt Count 176 (150-450) 10^3/uL MPV 11.2 (9.5-13.5) fL Neut % (Auto) 74.9 (43.0-75.0) % Lymph % (Auto) 15.8 L (20.5-60.0) % [place] % (Auto) 7.2 (1.7-12.0) % Eos % (Auto) 1.2 (0.9-7.0) % Baso % (Auto) 0.5 (0.2-2.0) % Neut # (Auto) 7.9 H (1.4-6.5) 10^3/uL Lymph # (Auto) 1.7 (1.2-3.8) 10^3/uL [place] # (Auto) 0.8 (0.3-0.8) 10^3/uL Eos # (Auto) 0.1 (0.0-0.7) 10^3/uL Baso # (Auto) 0.1 (0.0-0.1) 10^3/uL Abs Immat Gran (auto) 0.04 H (0.00-0.03) 10^3/uL Imm/Tot Granulo (auto) 0.4 (0.0-0.5) % ESR 70 H (<=30) mm/hr Sodium 139 (136-145) mmol/L Potassium 4.0 (3.5-5.1) mmol/L Chloride 103 (98-107) mmol/L Carbon Dioxide 26.6 (21.0-32.0) mmol/L Anion Gap 13.4 BUN 10.0 (7.0-18.0) mg/dL Creatinine 1.01 (0.55-1.02) mg/dL Est GFR ( Amer) >60 (>=60 mL/min/1.73m^2) Est GFR (Non-Af Amer) 55 L (>=60 mL/min/1.73m^2) BUN/Creatinine Ratio 9.9 Glucose 199 H (74-106) mg/dL Lactate 4.3 H* (0.4-2.0) mmol/L Calcium 10.3 H (8.5-10.1) mg/dL C-Reactive Protein 1.18 H (<=0.50) mg/dL Imaging Data Foot x-ray: Radiologist's impression: ITS Impressions Foot X-Ray 11/23/24 18:10 IMPRESSION: NO ACUTE BONY PROCESS OR DEFINITIVE PLAIN FILM EVIDENCE OF OSTEOMYELITIS. Impression dictated by: Edgar Segovia Jr., D.O. 11/23/2024 6:34 PM Dictation Location: [place] [address] Electronically authenticated by: [id number] Y Date: 11/23/2024 18:34 Discharge Plan Discharge Chief Complaint: Extremity Problem, Nontraumatic Clinical Impression: Diabetic foot infection Patient Disposition: Admitted As Inpatient Time of Disposition Decision: 18:52 Condition: Good
--- NOTE | 2024-11-23 18:10 | XR_ITS ---
The [place] [id number] Patient Name: TAYE MARCOS MRN: [id number] date: 1955 Sex: F Assigned Patient Location: ER Current Patient Location: ER Accession/Order Number: [id number] Exam Date: 11/23/2024 18:33 Report Date: 11/23/2024 18:34 At the request of: AAMIR LOMBARDI MD Procedure: XR foot RT min 3V RIGHT FOOT - 3 views CLINICAL HISTORY: Diabetic foot infection, first MT distally COMPARISON: Right foot series 90 2023. FINDINGS: No focal soft tissue abnormality. The positioning is suboptimal. No acute bony process or plain film evidence of osteomyelitis. Plantar spurring. XR/XR foot RT min 3V IMPRESSION: NO ACUTE BONY PROCESS OR DEFINITIVE PLAIN FILM EVIDENCE OF OSTEOMYELITIS. Impression dictated by: Edgar Segovia Jr., D.O. 11/23/2024 6:34 PM Dictation Location: [place] [address] Electronically authenticated by: [id number] Y Date: 11/23/2024 18:34
[2024-11-23 18:11] LABS: Hematocrit 49.9 % (36.0-48.0); Hemoglobin 16.3 g/dL (12.0-16.0); Immature Granulocytes Abs Auto 0.04 10^3/uL (0.00-0.03); Immature Granulocytes Pct Auto 0.4 % (0.0-0.5); Lymphocytes Absolute Auto 1.7 10^3/uL (1.2-3.8); Mean Corpuscular HGB Conc 32.7 g/dL (29.9-35.2); Mean Corpuscular Hemoglobin 31.7 pg (26.7-34.0); Mean Corpuscular Volume 97.1 fL (81.0-99.0); Platelet Count 176 10^3/uL (150-450); Red Blood Count 5.14 10^6/uL (4.20-5.40); White Blood Count 10.5 10^3/uL (4.0-11.0)
[2024-11-23 18:24] LABS: Anion Gap 13.4; Blood Urea Nitrogen 10.0 mg/dL (7.0-18.0); Calcium 10.3 mg/dL (8.5-10.1); Carbon Dioxide 26.6 mmol/L (21.0-32.0); Chloride 103 mmol/L (98-107); Estimated GFR (African America >60 (>=60 mL/min/1.73m^2); Estimated GFR (Non-African Ame 55 (>=60 mL/min/1.73m^2); Glucose 199 mg/dL (74-106); Potassium 4.0 mmol/L (3.5-5.1); Sodium 139 mmol/L (136-145)
[2024-11-23 18:34] LABS: Lactate/Lactic Acid 4.3 mmol/L (0.4-2.0)
[2024-11-23] MEDS: PIPERACILLIN SODIUM/TAZOBACTAM 3.375 GM in 0.9 % SODIUM CHLORIDE 50 ML IV (19:06)
[2024-11-23] MEDS: VANCOMYCIN HCL 2,000 MG in 0.9 % SODIUM CHLORIDE 500 ML 250 MG IV (19:32)
[2024-11-23 19:59] VITALS: BP 116/69; PULSE 67; TEMP 36.7; O2SAT 90; BMI 30.6
[2024-11-23 20:06] VITALS: BP 122/70; O2SAT 96
[2024-11-23 21:24] LABS: Lactate/Lactic Acid 3.5 mmol/L (0.4-2.0)
[2024-11-23] MEDS: CARVEDILOL 12.5 MG TABLET PO (22:12)
[2024-11-23] MEDS: 0.9 % SODIUM CHLORIDE 1,000 ML 150 ML IV (22:12)
[2024-11-23] MEDS: PREGABALIN 75 MG CAPSULE 150 MG PO (22:12)
[2024-11-23] MEDS: APIXABAN 5 MG TABLET PO (22:12)
[2024-11-23] MEDS: ATORVASTATIN CALCIUM 10 MG TABLET PO (22:13)
[2024-11-23] MEDS: INSULIN GLARGINE 300 UNIT/3 ML INSULN.PEN 20 UNIT SQ (22:13)
[2024-11-23] MEDS: INSULIN ASPART 300 UNIT/3 ML PEN SUBQ (22:14)
[2024-11-23] MEDS: DONEPEZIL HCL 10 MG TABLET PO (22:16)
[2024-11-23 23:44] VITALS: BP 140/83; PULSE 68; TEMP 36.4; O2SAT 94
[2024-11-24] MEDS: ZOLPIDEM TARTRATE 10 MG TABLET PO ×2 (00:49→21:29)
[2024-11-24] MEDS: PIPERACILLIN SODIUM/TAZOBACTAM 3.375 GM in 0.9 % SODIUM CHLORIDE 50 ML IV ×3 (03:43→19:29)
[2024-11-24 03:52] VITALS: BP 126/69; PULSE 58; TEMP 36.9; O2SAT 93
[2024-11-24] MEDS: 0.9 % SODIUM CHLORIDE 1,000 ML 150 ML IV (05:06)
[2024-11-24] MEDS: PANTOPRAZOLE SODIUM 40 MG TABLET.DR PO (05:32)
[2024-11-24 05:57] LABS: Hematocrit 44.1 % (36.0-48.0); Hemoglobin 14.5 g/dL (12.0-16.0); Immature Granulocytes Abs Auto 0.02 10^3/uL (0.00-0.03); Immature Granulocytes Pct Auto 0.2 % (0.0-0.5); Lymphocytes Absolute Auto 1.8 10^3/uL (1.2-3.8); Mean Corpuscular HGB Conc 32.9 g/dL (29.9-35.2); Mean Corpuscular Hemoglobin 31.5 pg (26.7-34.0); Mean Corpuscular Volume 95.9 fL (81.0-99.0); Platelet Count 150 10^3/uL (150-450); Red Blood Count 4.60 10^6/uL (4.20-5.40); White Blood Count 8.0 10^3/uL (4.0-11.0)
[2024-11-24 06:14] LABS: Anion Gap 15.4; Blood Urea Nitrogen 10.0 mg/dL (7.0-18.0); Calcium 8.8 mg/dL (8.5-10.1); Carbon Dioxide 24.3 mmol/L (21.0-32.0); Chloride 107 mmol/L (98-107); Estimated GFR (African America >60 (>=60 mL/min/1.73m^2); Estimated GFR (Non-African Ame >60 (>=60 mL/min/1.73m^2); Glucose 115 mg/dL (74-106); Potassium 3.7 mmol/L (3.5-5.1); Sodium 143 mmol/L (136-145)
[2024-11-24 06:35] LABS: Lactate/Lactic Acid 2.7 mmol/L (0.4-2.0)
--- NOTE | 2024-11-24 08:26 | SWNOTE1 ---
MANSOOR received a fax from [facility] and pt is current with them. She has PT/OT and nurse coming in. Per the [facility] documentation has a front wheeled walker, quad cane, rollator, straight cane, and bath bench in the home. MANSOOR placed [facility] paperwork in pt's chart.
[2024-11-24] MEDS: PREGABALIN 75 MG CAPSULE 150 MG PO ×2 (08:35→21:29)
[2024-11-24] MEDS: MEMANTINE HCL 28 MG CAP XR PO (08:35)
[2024-11-24] MEDS: CARVEDILOL 12.5 MG TABLET PO ×2 (08:35→21:29)
[2024-11-24] MEDS: APIXABAN 5 MG TABLET PO ×2 (08:35→21:29)
[2024-11-24] MEDS: DONEPEZIL HCL 10 MG TABLET 20 MG PO (08:35)
[2024-11-24] MEDS: ASPIRIN 81 MG TABLET.DR PO (08:35)
[2024-11-24] MEDS: BUPROPION HCL 150 MG XL TABLET 24H PO (08:35)
[2024-11-24] MEDS: VANCOMYCIN HCL 1,250 MG in 0.9 % SODIUM CHLORIDE 250 ML 166.667 MG IV (08:35)
[2024-11-24 08:44] VITALS: BP 144/76; PULSE 57; TEMP 36.6; O2SAT 92
--- NOTE | 2024-11-24 09:30 | CM.NOTE ---
Rounds made with Dr. Renae, discussed with pt reason for admission, labs, and xray's. Plan of care discussed with pt, no discharge today. Dr. Martinez will see pt for further recommendations.
--- NOTE | 2024-11-24 10:15 | SWNOTE1 ---
SW was consulted to discuss Advanced Directives with patient. SW met with pt to discuss discharge needs and Advanced Directives. Pt lives at home with her daughter. It is a one story home. Pt has walkers and cane at home, uses both and it depends on the day which one she uses. Pt has [facility] home health coming in and she would like to resume them at discharge. Pt has a nurse and therapy coming in. She voiced they come in 1x a week. Pt voiced podiatry is coming to see her. She voiced she had surgery in past on her other foot and concerned she may need to have surgery again. SW advised that SW will return if pt has any discharge needs. SW did ask about completing Health Care Power of Assistant [employer] Shift Manager. Pt voiced that her daughter is her POA. SW advised pt to have her daughter bring in POA paperwork if she is able to and we will scan in to our system so we have it on file. Pt is agreeable. SW to follow as needed.
--- NOTE | 2024-11-24 10:22 | PM.IMHP1 ---
Internal Medicine - H&P: HPI History of Present Illness Chief complaint: Diabetic foot infection Narrative: Please be aware I am admitting this patient that was accepted by the overnight team, this the first admitting this patient this is a 68-year-old female with past medical's of [place], dyslipidemia, hypertension, A-fib on anticoagulation, CHF, type 2 diabetes, here for right foot wound. History and from the patient as well as from her chart review. She states that she did have callus in the bottom of her right foot and started to notice a hole in that area for the last 3 to 4 weeks. She was seen by the rig supervisor office yesterday and they opened up and stated that she did have purulent discharge along with pain from the area. Denies any fever or chills or nausea or vomiting. Denies any abdominal pain. X-ray of the right foot did not show any evidence of osteomyelitis. ESR and was around 70 CRP was 1.15. She did have lactic acidosis on her labs otherwise CBC and CMP were not significant. ED staff spoke to the rig supervisor Dr. Anibal Garcia who will see the patient and accepted her to be admitted here for IV antibiotics and is to be on the consult. Patient admitted under hospice status Review of Systems ROS Status of ROS 10 or more systems reviewed and unremarkable except as noted in history and below [facility] Medical History (Updated 11/23/24 @ 18:52 by Robi Coy MD) Low back pain ?M54.50 - Low back pain, unspecified (ICD-10) Neck pain ?M54.2 - Cervicalgia (ICD-10) Heartburn ?R12 - Heartburn (ICD-10) Acid reflux ?K21.9 - Gastro-esophageal reflux disease without esophagitis (ICD-10) Diabetes ?E11.9 - Type 2 diabetes mellitus without complications (ICD-10) Sleep apnea ?G47.30 - Sleep apnea, unspecified (ICD-10) Smoker ?F17.200 - Nicotine dependence, unspecified, uncomplicated (ICD-10) High cholesterol ?E78.00 - Pure hypercholesterolemia, unspecified (ICD-10) Hypertension ?I10 - Essential (primary) hypertension (ICD-10) Atrial fibrillation ?I48.91 - Unspecified atrial fibrillation (ICD-10) Congestive heart failure ?I50.9 - Heart failure, unspecified (ICD-10) Angina at rest ?I20.89 - Other forms of angina pectoris (ICD-10) Surgical History (Updated 11/03/24 @ 11:49 by Melina Presley) H/O eye surgery ?Z98.890 - Other specified postprocedural states (ICD-10) History of cholecystectomy ?Z90.49 - Acquired absence of other specified parts of digestive tract (ICD-10) H/O: hysterectomy ?Z90.710 - Acquired absence of both cervix and uterus (ICD-10) S/P tonsillectomy and adenoidectomy ?Z90.89 - Acquired absence of other organs (ICD-10) Family History (Updated 11/23/24 @ 20:02 by Ayla Garcia RN) Mother Family history of CHF (congestive heart failure) Family history of hypertension Family history of diabetes mellitus Sister Family history of COPD (chronic obstructive pulmonary disease) Father Family history of cancer Family history of myocardial infarction Family history of stroke Social History (Updated 11/23/24 @ 20:04 by Ayla Garcia RN) Within the past year, how often did you have a drink containing alcohol: never Within the past year, how often did you have six or more drinks on one occasion: never Score interpretation: A score less than 3 is consistent with normal alcohol consumption. Smoking status: Current every day smoker Second hand tobacco smoke exposure: No Non-prescribed substance use: denies use Previous occupational history: retired Highest level of school completed/degree received: high school graduate Do you want help with school or training: No Are you now , , , , never or living with a partner: In a typical week, how many times do you talk on the telephone with family, friends, or neighbors: 3 or more times per week How often do you get together with friends or relatives: 3 or more times per week How often do you attend congregation or denominational services: 4 or more times per year Do you belong to any clubs or organizations such as congregation groups unions, fraternal or athletic groups, or school groups: yes Total score: 3 Score interpretation: A score of greater than or equal to 2 indicates the lowest level of social isolation. Little interest or pleasure in doing things: not at all Feeling down, depressed, or hopeless: several days Feel stressed/tense/nervous/anxious/difficulty sleeping: not at all Meds Home Medications and Allergies Home Medications ?Medication ?Instructions ?Recorded ?Confirmed ?Type apixaban 5 mg tablet (Eliquis) 5 mg PO Q12H 10/05/24 11/23/24 History aspirin 81 mg tablet 81 mg PO DAILY 10/05/24 11/23/24 History bupropion HCl 150 mg 24 hr tablet, 150 mg PO DAILY 10/05/24 11/23/24 History extended release carvedilol 12.5 mg tablet 12.5 mg PO Q12H 10/05/24 11/23/24 History donepezil 10 mg tablet 20 mg PO .qd 10/05/24 11/24/24 History empagliflozin 25 mg tablet 25 mg PO DAILY 10/05/24 11/23/24 History (Jardiance) folic acid 1 mg tablet 1 mg PO DAILY 10/05/24 11/23/24 History furosemide 20 mg tablet 20 mg PO .qod 10/05/24 11/24/24 History memantine 10 mg tablet 10 mg PO BID 10/05/24 11/23/24 History metformin 500 mg tablet 500 mg PO BID 10/05/24 11/23/24 History nortriptyline 25 mg capsule 25 mg PO .qhs 10/05/24 11/24/24 History omeprazole 20 mg capsule,delayed 20 mg PO DAILY 10/05/24 11/24/24 History release pregabalin 150 mg capsule 300 mg PO Q12H 10/05/24 11/23/24 History semaglutide 1 mg/dose (4 mg/3 mL) 2 mg subcut .weekly 10/05/24 11/23/24 History subcutaneous pen injector (Ozempic) simvastatin 20 mg tablet 20 mg PO DAILY 10/05/24 11/24/24 History tramadol 50 mg tablet 50 mg PO BID PRN pain #60 tabs 10/05/24 11/23/24 Rx doxycycline hyclate 100 mg tablet 100 mg PO Q12H 11/23/24 11/23/24 History insulin glargine U-300 conc 300 22 unit subcut Q24H 11/23/24 11/23/24 History unit/mL (1.5 mL) subcutaneous pen (T[employer] SoloStar U-300 Insulin) insulin lispro 100 unit/mL 1 sliding scale dose subcut 11/23/24 History subcutaneous pen magnesium oxide 400 mg (241.3 mg 400 mg PO BID 11/23/24 11/24/24 History magnesium) tablet Allergies Allergy/AdvReac Type Severity Reaction Status Date / Time Sulfa (Sulfonamide Allergy Mild Vomiting Verified 11/23/24 17:32 Antibiotics) Exam Narrative Exam Narrative: General: The patient appears well and in no apparent distress. Patient is resting comfortably in bed. Pleasant and cooperative Skin: Warm, dry, no pallor noted. There is no rash noted. Head: Normocephalic, atraumatic Eye: Normal conjunctiva, no drainage Ears, Nose, Mouth, and Throat: oral mucosa is moist. Nares patent. Cardiovascular: Regular Rate and Rhythm Respiratory: Patient is in no distress, no accessory muscle use, lungs are clear to auscultation, no wheezing, rales or rhonchi Back: non-tender GI: Soft and nontender, no signs of acute abdomen, no organomegaly Musculoskeletal: There are 2 open areas at the sole of the right foot, there is some surrounding induration but I do not appreciate any fluctuance. Does have some tenderness on palpation. The right foot is examined. Intact peripheral pulses bilaterally either manually as well as on the bedside Doppler. Does have signs of claudication including decreased hair distribution. No signs at all of any acute ischemic change Neurological: A&O x 3, no focal motor or sensory deficits Constitutional Vital Signs, click to edit/add: Last Vital Signs Temp 97.9 F 11/24/24 08:44 Pulse 57 L 11/24/24 08:44 Resp 16 11/24/24 08:44 BP 144/76 H 11/24/24 08:44 Pulse Ox 92 L 11/24/24 08:44 O2 Del Method Room Air 11/24/24 08:44 Internal Medicine - H&P: Reslt Labs Labs: Short CBC 11/23/24 11/24/24 Range/Units 17:57 05:46 WBC 10.5 8.0 (4.0-11.0) 10^3/uL Hgb 16.3 H 14.5 (12.0-16.0) g/dL Hct 49.9 H 44.1 (36.0-48.0) % Plt Count 176 150 (150-450) 10^3/uL BMP 11/23/24 11/24/24 17:57 05:46 Sodium 139 143 Potassium 4.0 3.7 Chloride 103 107 Carbon Dioxide 26.6 24.3 BUN 10.0 10.0 Creatinine 1.01 0.78 Glucose 199 H 115 H Calcium 10.3 H 8.8 Assessment and Plan Assessment and Plan (1) Diabetic foot infection: Plan Right foot open wound, diabetic foot infection ruling out osteomyelitis - Patient already admitted to medical floor telemetry - I will continue with IV vancomycin IV Zosyn to be dosed by pharmacy - Obtaining MRI right foot with and without contrast - Trending inflammatory - Podiatry consult, Dr. Martinez is aware of the pt and is on consult -PT/OT eval - Continue to reconcile patient's medications - Full code -Discussed the plan with the pt. Answered all her questions. She was appreciative of our efforts
--- NOTE | 2024-11-24 10:23 | MR_ITS ---
The [address] [address] Patient Name: TYAE MARCOS MRN: [id number] date: 1955 Sex: F Assigned Patient Location: MS Current Patient Location: [place] Accession/Order Number: [id number] Exam Date: 11/24/2024 12:21 Report Date: 11/24/2024 12:33 At the request of: ROSITA SHARMA MD Procedure: MR foot RT wo con MR foot RT wo con 11/24/2024 11:48 AM SIGNS AND SYMPTOMS: ^ruling out osteomyelitis \S.br\ PROTOCOL: Multiplanar multisequence MR images of the right foot without IV contrast COMPARISON: 11/23/2024 FINDINGS: Lisfranc ligament: Intact. Hallux: Osseous: Normal. Extensor tendon: Normal. Flexor tendon: Normal. First metatarsophalangeal joint: Intact. Hallux-sesamoid complex: Normal. Second ray: Osseous: Normal. Extensor tendon: Normal. Flexor tendon: Normal. Second metatarsophalangeal joint: Intact. Plantar plate: Normal. Third ray: Osseous: Normal. Extensor tendon: Normal. Flexor tendon: Normal. Third metatarsophalangeal joint: Intact. Plantar plate: Normal. Fourth ray: Osseous: Normal. Extensor tendon: Normal. Flexor tendon: Normal. Fourth metatarsophalangeal joint: Intact. Plantar plate: Normal. Fifth ray: Osseous: Normal. Extensor tendon: Normal. Flexor tendon: Normal. Fifth metatarsophalangeal joint: Intact. Plantar plate: Normal. Interspaces: Interdigital (Cartwright) neuroma: None. Intermetatarsal bursitis: None. Soft tissues: Mild soft tissue edema is noted throughout the foot suspicious for cellulitis. Soft tissue ulceration is along the plantar surface of the foot beneath the first metatarsophalangeal joint. Muscles: Normal. Bones: Normal. Nerves: Normal. Blood vessels: Normal. MR/MR foot RT wo con IMPRESSION: Mild soft tissue edema is noted throughout the foot suspicious for cellulitis. Soft tissue ulceration is along the plantar surface of the foot beneath the first metatarsophalangeal joint. No bone marrow signal alteration is noted to suggest osteomyelitis. Impression dictated by: Luan Bowling M.D. 11/24/2024 12:33 PM Dictation Location: [place] [address] Electronically authenticated by: [id number] Y Date: 11/24/2024 12:33
--- NOTE | 2024-11-24 12:30 | PM.CN ---
Consult Note: [facility] Data of Consult Consult date: 11/24/24 Requesting Physician: Priscilla Lang MD Primary Care Provider: Sandra Lewis DO Family Provider: JONAS YODER Consult Narrative Reason for consult: right diabetic foot infection Narrative: Kerry is a 68-year-old female with type 2 diabetes and ulcer on plantar right forefoot. She relates that the ulcer started as a callus then broke open. Yesterday at appointment with her hedis coordinator, Dr. Fritz, purulent drainage was noted and she was instructed to go to the emergency department. At the emergency department x-rays were obtained and were negative for bony change. Localized erythema was noted as well as elevation in inflammatory markers. No leukocytosis and vital signs were stable. She was admitted to the hospitalist and placed on vancomycin and Zosyn. The hospitalist ordered MRI, interpretation is pending. Patient seen at bedside relating to feeling better since admission. She relates that her appetite is good and having no pain. She relates to having diabetic foot ulcers previously on her contralateral foot. She does feel systemically well cc:: CC: Priscilla Lang MD Review of Systems ROS Status of ROS 10 or more systems reviewed and unremarkable except as noted in history and below [facility] Medical History (Updated 11/24/24 @ 12:58 by Cong Martinez DPM) Low back pain ?M54.50 - Low back pain, unspecified (ICD-10) Neck pain ?M54.2 - Cervicalgia (ICD-10) Heartburn ?R12 - Heartburn (ICD-10) Acid reflux ?K21.9 - Gastro-esophageal reflux disease without esophagitis (ICD-10) Diabetes ?E11.9 - Type 2 diabetes mellitus without complications (ICD-10) Sleep apnea ?G47.30 - Sleep apnea, unspecified (ICD-10) Smoker ?F17.200 - Nicotine dependence, unspecified, uncomplicated (ICD-10) High cholesterol ?E78.00 - Pure hypercholesterolemia, unspecified (ICD-10) Hypertension ?I10 - Essential (primary) hypertension (ICD-10) Atrial fibrillation ?I48.91 - Unspecified atrial fibrillation (ICD-10) Congestive heart failure ?I50.9 - Heart failure, unspecified (ICD-10) Angina at rest ?I20.89 - Other forms of angina pectoris (ICD-10) Surgical History (Updated 11/03/24 @ 11:49 by Melina Presley) H/O eye surgery ?Z98.890 - Other specified postprocedural states (ICD-10) History of cholecystectomy ?Z90.49 - Acquired absence of other specified parts of digestive tract (ICD-10) H/O: hysterectomy ?Z90.710 - Acquired absence of both cervix and uterus (ICD-10) S/P tonsillectomy and adenoidectomy ?Z90.89 - Acquired absence of other organs (ICD-10) Family History (Updated 11/23/24 @ 20:02 by Ayla Garcia, BRENDA) Mother Family history of CHF (congestive heart failure) Family history of hypertension Family history of diabetes mellitus Sister Family history of COPD (chronic obstructive pulmonary disease) Father Family history of cancer Family history of myocardial infarction Family history of stroke Social History (Updated 11/23/24 @ 20:04 by Ayla Garcia RN) Within the past year, how often did you have a drink containing alcohol: never Within the past year, how often did you have six or more drinks on one occasion: never Score interpretation: A score less than 3 is consistent with normal alcohol consumption. Smoking status: Current every day smoker Second hand tobacco smoke exposure: No Non-prescribed substance use: denies use Previous occupational history: retired Highest level of school completed/degree received: high school graduate Do you want help with school or training: No Are you now , , , , never or living with a partner: In a typical week, how many times do you talk on the telephone with family, friends, or neighbors: 3 or more times per week How often do you get together with friends or relatives: 3 or more times per week How often do you attend oriental orthodox or restoration services: 4 or more times per year Do you belong to any clubs or organizations such as oriental orthodox groups unions, fraternal or athletic groups, or school groups: yes Total score: 3 Score interpretation: A score of greater than or equal to 2 indicates the lowest level of social isolation. Little interest or pleasure in doing things: not at all Feeling down, depressed, or hopeless: several days Feel stressed/tense/nervous/anxious/difficulty sleeping: not at all Meds Home Medications and Allergies Home Medications ?Medication ?Instructions ?Recorded ?Confirmed ?Type apixaban 5 mg tablet (Eliquis) 5 mg PO Q12H 10/05/24 11/23/24 History aspirin 81 mg tablet 81 mg PO DAILY 10/05/24 11/23/24 History bupropion HCl 150 mg 24 hr tablet, 150 mg PO DAILY 10/05/24 11/23/24 History extended release carvedilol 12.5 mg tablet 12.5 mg PO Q12H 10/05/24 11/23/24 History donepezil 10 mg tablet 20 mg PO .qd 10/05/24 11/24/24 History empagliflozin 25 mg tablet 25 mg PO DAILY 10/05/24 11/23/24 History (Jardiance) folic acid 1 mg tablet 1 mg PO DAILY 10/05/24 11/23/24 History furosemide 20 mg tablet 20 mg PO .qod 10/05/24 11/24/24 History memantine 10 mg tablet 10 mg PO BID 10/05/24 11/23/24 History metformin 500 mg tablet 500 mg PO BID 10/05/24 11/23/24 History nortriptyline 25 mg capsule 25 mg PO .qhs 10/05/24 11/24/24 History omeprazole 20 mg capsule,delayed 20 mg PO DAILY 10/05/24 11/24/24 History release pregabalin 150 mg capsule 300 mg PO Q12H 10/05/24 11/23/24 History semaglutide 1 mg/dose (4 mg/3 mL) 2 mg subcut .weekly 10/05/24 11/23/24 History subcutaneous pen injector (Ozempic) simvastatin 20 mg tablet 20 mg PO DAILY 10/05/24 11/24/24 History tramadol 50 mg tablet 50 mg PO BID PRN pain #60 tabs 10/05/24 11/23/24 Rx doxycycline hyclate 100 mg tablet 100 mg PO Q12H 11/23/24 11/23/24 History insulin glargine U-300 conc 300 22 unit subcut Q24H 11/23/24 11/23/24 History unit/mL (1.5 mL) subcutaneous pen (Toujeo SoloStar U-300 Insulin) insulin lispro 100 unit/mL 1 sliding scale dose subcut 11/23/24 History subcutaneous pen magnesium oxide 400 mg (241.3 mg 400 mg PO BID 11/23/24 11/24/24 History magnesium) tablet Allergies Allergy/AdvReac Type Severity Reaction Status Date / Time Sulfa (Sulfonamide Allergy Mild Vomiting Verified 11/23/24 17:32 Antibiotics) Exam Narrative Exam Narrative: Skin: Full-thickness ulceration subfirst metatarsal head on plantar right foot which tracks slightly proximally communicating with a smaller second ulceration. The primary ulceration measures 0.9 x 0.5 cm while the secondary ulceration measures 0.4 x 0.3. Negative probe to bone but does probe to tendon. No active drainage. Minimal surrounding erythema of less than 1 cm at the wound periphery Neuro: Absent protective and vibratory sensation. No pain out of proportion Vascular: Pedal pulses are faintly palpable bilaterally with absent digital hair. No calf pain on squeeze MSK: Mild tenderness on direct palpation plantar aspect of the first metatarsal. No fluctuance. No pain with range of motion of the toes. Chronic toe contractures are noted Constitutional Vital Signs, click to edit/add: Last Vital Signs Temp 97.9 F 11/24/24 08:44 Pulse 57 L 11/24/24 08:44 Resp 16 11/24/24 08:44 BP 144/76 H 11/24/24 08:44 Pulse Ox 92 L 11/24/24 08:44 O2 Del Method Room Air 11/24/24 08:44 Results Labs Labs: Short CBC 11/23/24 11/24/24 Range/Units 17:57 05:46 WBC 10.5 8.0 (4.0-11.0) 10^3/uL Hgb 16.3 H 14.5 (12.0-16.0) g/dL Hct 49.9 H 44.1 (36.0-48.0) % Plt Count 176 150 (150-450) 10^3/uL BMP 11/23/24 11/24/24 17:57 05:46 Sodium 139 143 Potassium 4.0 3.7 Chloride 103 107 Carbon Dioxide 26.6 24.3 BUN 10.0 10.0 Creatinine 1.01 0.78 Glucose 199 H 115 H Calcium 10.3 H 8.8 Assessment and Plan Assessment and Plan (1) Diabetic foot infection: (2) Ulcer of right foot with muscle involvement without evidence of necrosis: Assessment and Plan: Bedside debridement performed - see procedure note (3) Cellulitis of right foot: (4) Type 2 diabetes mellitus with foot ulcer: Plan Patient seen at bedside. Patient is occasion provided specifically I discussed that send he has a limb threatening condition and her compliance going forward is vital to preventing amputation. I reviewed labs as well as imaging with her. MRI that was obtained today does not show any bone marrow edema or findings consistent with osteomyelitis or abscess rather it is consistent with cellulitis Written and verbal consent were obtained for bedside debridement -see procedure note Recommend that the ulcer be packed with quarter inch packing which is to be changed every 2 to 3 days. Patient will likely need home health care. Patient may bear weight to the right heel with a surgical shoe Patient will likely require at least 1 additional night of IV antibiotics then may be discharged home on oral antibiotics but will default to the hospitalist on discharge planning. Culture obtained in the emergency department is pending. No further procedure or surgery planned during this hospital stay. Patient may follow-up with Dr. Fritz or [place] [facility] within 1 week from discharge
--- NOTE | 2024-11-24 13:03 | PM.ORONB ---
Brief Operative Note Date of procedure: 11/24/24 Pre-op diagnosis general: Right diabetic foot ulceration with cellulitis Post-op diagnosis: same as pre-op Procedure: Procedure performed: Excisional debridement down to and including fat, fascia and tendon of right foot ulcer Indications for procedure: See consultation note Findings during procedure: Preprocedure ulcer measured 0.9 x 0.5 cm and just proximal to this ulcer was a secondary ulcer which measured 0.4 x 0.3 cm. Flexor tendon is exposed but appeared healthy and without necrosis. No bone exposure. No purulence. Wound edges bled appropriately Procedure in detail: After written and verbal consent were obtained for the above procedure excisional debridement of the right diabetic foot ulcer was performed. No anesthesia was necessary due to profound peripheral neuropathy. Using a sterile ring curette both ulcers were excisionally debrided down to and including fat and fascia while excising all nonviable soft tissue which included fat and fibrin. No purulence or abscess was noted. The flexor tendon was exposed but appeared healthy and of normal color. No bone exposure. Wound edges bled appropriately. After excisional debridement was performed and hemostasis was controlled on the field the ulcer measured 1.1 x 0.7 cm and 0.5 x 0.5 cm. The wound was irrigated and then will be packed open with a dry sterile dressing which may be reinforced as necessary. Packing should be changed every 2 to 3 days. Surgeon: Cong Martinez Estimated blood loss (mL): 10 Tourniquet time (min): 0 Pathology: none sent Condition: stable
--- NOTE | 2024-11-24 14:09 | SWNOTE1 ---
MANSOOR was called by nursing and major case detective from [facility] here to speak with MANSOOR. MANSOOR went out and spoke to Siena from [facility] services. Pt does have services coming in to the home. They did set pt up with life alert button and meals on wheels. Siena voiced that pt is also enrolled in program that pt's daughter is paid to be pt's caregiver. MANSOOR did inform Siena that pt has [facility] HH coming in as well. No further needs at this time. Siena requesting dc paperwork for continuity of care.
--- NOTE | 2024-11-24 14:11 | SWNOTE1 ---
Important Message from Medicare reviewed and discussed with patient. Pt. verbalized understanding and signed the form. Original given to patient and copy placed in patient?s chart.
--- NOTE | 2024-11-24 14:24 | SWNOTE1 ---
SW faxed face sheet, ED note, H&P, PT/OT, and podiatry consult to [facility].
[2024-11-24 16:25] VITALS: BP 155/79; PULSE 67; TEMP 36.7; O2SAT 90
[2024-11-24] MEDS: ACETAMINOPHEN 325 MG TABLET 650 MG PO (19:39)
[2024-11-24 20:00] VITALS: BP 145/84; PULSE 59; TEMP 36.3; O2SAT 95
[2024-11-24] MEDS: ATORVASTATIN CALCIUM 10 MG TABLET PO (21:29)
[2024-11-24] MEDS: NORTRIPTYLINE HCL 25 MG CAPSULE PO (21:29)
[2024-11-24] MEDS: INSULIN ASPART 300 UNIT/3 ML PEN SUBQ (21:33)
[2024-11-24] MEDS: INSULIN GLARGINE 300 UNIT/3 ML INSULN.PEN 20 UNIT SQ (21:33)
[2024-11-24] MEDS: VANCOMYCIN HCL 1,250 MG in 0.9 % SODIUM CHLORIDE 250 ML 166 MG IV (22:24)
[2024-11-25] VITALS: BP 119/68; PULSE 56; TEMP 36.6; O2SAT 95
[2024-11-25 04:00] VITALS: BP 107/61; PULSE 59; TEMP 36.5; O2SAT 92
[2024-11-25] MEDS: PIPERACILLIN SODIUM/TAZOBACTAM 3.375 GM in 0.9 % SODIUM CHLORIDE 50 ML IV (04:35)
[2024-11-25 05:40] LABS: Hematocrit 44.6 % (36.0-48.0); Hemoglobin 14.4 g/dL (12.0-16.0); Immature Granulocytes Abs Auto 0.02 10^3/uL (0.00-0.03); Immature Granulocytes Pct Auto 0.3 % (0.0-0.5); Lymphocytes Absolute Auto 1.6 10^3/uL (1.2-3.8); Mean Corpuscular HGB Conc 32.3 g/dL (29.9-35.2); Mean Corpuscular Hemoglobin 31.1 pg (26.7-34.0); Mean Corpuscular Volume 96.3 fL (81.0-99.0); Platelet Count 122 10^3/uL (150-450); Red Blood Count 4.63 10^6/uL (4.20-5.40); White Blood Count 6.6 10^3/uL (4.0-11.0)
[2024-11-25 06:04] LABS: Alanine Aminotransferase 33 U/L (14-59); Albumin Globulin Ratio 0.6; Albumin Level 2.5 g/dL (3.4-5.0); Alkaline Phosphatase 104 U/L (46-116); Anion Gap 10.8; Aspartate Amino Transferase 28 U/L (15-37); Blood Urea Nitrogen 11.0 mg/dL (7.0-18.0); Calcium 9.1 mg/dL (8.5-10.1); Carbon Dioxide 28.0 mmol/L (21.0-32.0); Chloride 108 mmol/L (98-107); Estimated GFR (African America >60 (>=60 mL/min/1.73m^2); Estimated GFR (Non-African Ame >60 (>=60 mL/min/1.73m^2); Globulin 4.1 g/dL; Glucose 156 mg/dL (74-106); Magnesium 1.6 mg/dL (1.8-2.4); Potassium 3.8 mmol/L (3.5-5.1); Sodium 143 mmol/L (136-145); Total Protein 6.6 g/dL (6.4-8.2)
[2024-11-25] MEDS: PANTOPRAZOLE SODIUM 40 MG TABLET.DR PO (06:08)
[2024-11-25 07:37] VITALS: BP 112/63; PULSE 102; TEMP 36.6; O2SAT 99
[2024-11-25] MEDS: INSULIN ASPART 300 UNIT/3 ML PEN SUBQ (08:17)
[2024-11-25] MEDS: VANCOMYCIN HCL 1,250 MG in 0.9 % SODIUM CHLORIDE 250 ML 166.667 MG IV (08:18)
[2024-11-25] MEDS: PREGABALIN 75 MG CAPSULE 150 MG PO (08:19)
[2024-11-25] MEDS: CANAGLIFLOZIN 100 MG TABLET PO (08:19)
[2024-11-25] MEDS: ASPIRIN 81 MG TABLET.DR PO (08:19)
[2024-11-25] MEDS: MEMANTINE HCL 28 MG CAP XR PO (08:19)
[2024-11-25] MEDS: FOLIC ACID 1 MG TABLET PO (08:20)
[2024-11-25] MEDS: BUPROPION HCL 150 MG XL TABLET 24H PO (08:20)
[2024-11-25] MEDS: APIXABAN 5 MG TABLET PO (08:20)
[2024-11-25] MEDS: CARVEDILOL 12.5 MG TABLET PO (08:20)
--- NOTE | 2024-11-25 09:00 | CM.NOTE ---
Rounds made with Dr. Renae, pt will discharge to home today with HH services ([facility]). Discussed with pt also home dressing changes with HH services and need to f/u with Dr. Martinez for wound care. Discussed with pt about PT and OT for HH services, Dr. Martinez recommends weight bearing to R heel with surgical shoe. Pt verbalizes understanding. Pt does have surgical shoe. Drsg changes and weight bearing status on CRF form for HH order.
--- NOTE | 2024-11-25 09:14 | P.DS_ITS ---
DS: Providers Provider Date of admission: 11/23/24 19:47 Primary care physician: Sandra Lewis DO Consults: 11/23/24 Consult to Spiral Winding Machine Helper Routine Reason for consult:: Advanced Directives 11/23/24 20:14 Consult to Podiatry Routine Consulting Provider: Cong Martinez Reason for consultation: Infecte foot ulcer 11/24/24 10:31 Occupational Therapy Eval and Treat Routine Reason for consultation: Diabetic foot Physical Therapy Eval and Treat Routine Reason for consultation: diabetic foot Discharging clinician: Kirt Renae Anticipated date of discharge: 11/25/24 DS: Diagnosis Discharge Diagnosis (1) Diabetic foot infection: (2) Ulcer of right foot with muscle involvement without evidence of necrosis: (3) Cellulitis of right foot: (4) Type 2 diabetes mellitus with foot ulcer: DS: Summary Hospital Course Hospital Course: Please be aware I am admitting this patient that was accepted by the overnight team, this the first admitting this patient this is a 68-year-old female with past medical's of [place], dyslipidemia, hypertension, A-fib on anticoagulation, CHF, type 2 diabetes, here for right foot wound. History and from the patient as well as from her chart review. She states that she did have callus in the bottom of her right foot and started to notice a hole in that area for the last 3 to 4 weeks. She was seen by the microbiological laboratory technician office yesterday and they opened up and stated that she did have purulent discharge along with pain from the area. Denies any fever or chills or nausea or vomiting. Denies any abdominal pain. X-ray of the right foot did not show any evidence of osteomyelitis. ESR and was around 70 CRP was 1.15. She did have lactic acidosis on her labs otherwise CBC and CMP were not significant. ED staff spoke to the microbiological laboratory technician Dr. Anibal Garcia who will see the patient and accepted her to be admitted here for IV antibiotics and is to be on the consult. Patient admitted under hospitalist service. Right foot open wound, diabetic foot infection ruling out osteomyelitis - Patient already admitted to medical floor telemetry - I will continue with IV vancomycin IV Zosyn to be dosed by pharmacy - Obtaining MRI right foot with and without contrast - Trending inflammatory - Podiatry consult, Dr. Martinez is aware of the pt and is on consult -PT/OT eval - Continue to reconcile patient's medications - Full code -Discussed the plan with the pt. Answered all her questions. She was appreciative of our efforts 11/25/2024 patient was seen by podiatry, MRI was done did not show any bone edema or findings with osteomyelitis or abscess. It is consistent with cellulitis. They performed bedside I&D and debridement of the wound. Cultures were obtained. Podiatry recommended another night of IV antibiotics yesterday and can be discharged on oral antibiotic. No further procedures or surgery planned during this hospital stay. Patient will follow-up with podiatry as outpatient. I will give her Augmentin and doxycycline for total of 10 days and she will see her podiatry as well as the wound center in 1 week from discharge. Patient will get home health on discharge. I discussed the plan with the patient in regards to her A1c of 9 states that her previous A1c was 8. I will order her Ozempic that is due today and she will take it when she goes home she is mentions. Also discussed with her the importance of compliance with diet and medications as well as to follow-up with her PCP for further change in her diabetes management. Patient was counseled extensively on smoking cessation as well. She understands agrees with this plan of management Status at Discharge Overall status at discharge: patient is back to baseline Time Spent with Patient Time attestation: Total time spent providing and/or coordinating discharge services: Exam Narrative Exam Narrative: General: The patient appears well and in no apparent distress. Patient is resting comfortably in bed. Pleasant and cooperative Skin: Warm, dry, no pallor noted. There is no rash noted. Head: Normocephalic, atraumatic Eye: Normal conjunctiva, no drainage Ears, Nose, Mouth, and Throat: oral mucosa is moist. Nares patent. Cardiovascular: Regular Rate and Rhythm Respiratory: Patient is in no distress, no accessory muscle use, lungs are clear to auscultation, no wheezing, rales or rhonchi Back: non-tender GI: Soft and nontender, no signs of acute abdomen, no organomegaly Musculoskeletal: Right foot wrapped in dressing. The right foot is examined. Intact peripheral pulses bilaterally either manually as well as on the bedside Doppler. Does have signs of claudication including decreased hair distribution. No signs at all of any acute ischemic change Neurological: A&O x 3, no focal motor or sensory deficits Constitutional Vital Signs, click to edit/add: Last Vital Signs Temp 98 F 11/25/24 07:37 Pulse 102 H 11/25/24 07:37 Resp 14 11/25/24 07:37 BP 112/63 11/25/24 07:37 Pulse Ox 99 11/25/24 07:37 O2 Del Method Room Air 11/25/24 07:37 DS: Data Data Completed and Pending Labs on day of discharge: Labs from last 24 hours 11/25/24 11/25/24 11/24/24 07:27 05:24 21:32 WBC 6.6 RBC 4.63 Hgb 14.4 Hct 44.6 MCV 96.3 MCH 31.1 MCHC 32.3 RDW 13.6 Plt Count 122 L MPV 11.1 Neut % (Auto) 65.0 Lymph % (Auto) 24.4 Kern % (Auto) 8.0 Eos % (Auto) 1.7 Baso % (Auto) 0.6 Neut # (Auto) 4.3 Lymph # (Auto) 1.6 Kern # (Auto) 0.5 Eos # (Auto) 0.1 Baso # (Auto) 0.0 Abs Immat Gran (auto) 0.02 Imm/Tot Granulo (auto) 0.3 Sodium 143 Potassium 3.8 Chloride 108 H Carbon Dioxide 28.0 Anion Gap 10.8 BUN 11.0 Creatinine 0.75 Est GFR ( Amer) >60 Est GFR (Non-Af Amer) >60 BUN/Creatinine Ratio 14.7 Glucose 156 H Estimat Average Glucose 214 Hemoglobin A1c 9.1 H Calcium 9.1 Magnesium 1.6 L Total Bilirubin 0.4 AST 28 ALT 33 Alkaline Phosphatase 104 Total Protein 6.6 Albumin 2.5 L Globulin 4.1 Albumin/Globulin Ratio 0.6 POC Glucose 156 H 167 H 11/24/24 11/24/24 16:21 12:02 WBC RBC Hgb Hct MCV MCH MCHC RDW Plt Count MPV Neut % (Auto) Lymph % (Auto) Kern % (Auto) Eos % (Auto) Baso % (Auto) Neut # (Auto) Lymph # (Auto) Kern # (Auto) Eos # (Auto) Baso # (Auto) Abs Immat Gran (auto) Imm/Tot Granulo (auto) Sodium Potassium Chloride Carbon Dioxide Anion Gap BUN Creatinine Est GFR ( Amer) Est GFR (Non-Af Amer) BUN/Creatinine Ratio Glucose Estimat Average Glucose Hemoglobin A1c Calcium Magnesium Total Bilirubin AST ALT Alkaline Phosphatase Total Protein Albumin Globulin Albumin/Globulin Ratio POC Glucose 185 H 159 H Discharge Plan Discharge Disposition: Home Health Service Condition: Good Discharge Medications: New acetaminophen [Tylenol] 325 mg Tablet 650 mg PO Q8H PRN (Reason: Pain) 30 Days Qty: 60 0RF amoxicillin-pot clavulanate 875-125 mg tablet 1 tab PO BID 10 Days Qty: 20 0RF doxycycline hyclate 100 mg tablet 100 mg PO BID 10 Days Qty: 20 0RF Continued insulin glargine U-300 conc [Toujeo SoloStar U-300 Insulin] 300 unit/mL (1.5 mL) insulin pen 22 unit SUBCUT Q24H insulin lispro 100 unit/mL insulin pen 1 sliding scale dose SUBCUT ACHS Rx Instructions: USE DIRECTED magnesium oxide 400 mg (241.3 mg magnesium) tablet 400 mg PO BID tramadol 50 mg tablet 50 mg PO BID PRN (Reason: pain) Qty: 60 0RF aspirin 81 mg tablet 81 mg PO DAILY Eliquis 5 mg tablet 5 mg PO Q12H bupropion HCl 150 mg tablet extended release 24 hr 150 mg PO DAILY carvedilol 12.5 mg tablet 12.5 mg PO Q12H donepezil 10 mg tablet 20 mg PO .qd Jardiance 25 mg tablet 25 mg PO DAILY folic acid 1 mg tablet 1 mg PO DAILY furosemide 20 mg tablet 20 mg PO .qod metformin 500 mg tablet 500 mg PO BID memantine 10 mg tablet 10 mg PO BID nortriptyline 25 mg capsule 25 mg PO .qhs omeprazole 20 mg capsule,delayed release(DR/EC) 20 mg PO DAILY simvastatin 20 mg tablet 20 mg PO DAILY Ozempic 1 mg/dose (4 mg/3 mL) pen injector 2 mg SUBCUT .weekly Changed pregabalin 150 mg capsule 150 mg PO Q12H Qty: 0 0RF Discontinued doxycycline hyclate 100 mg tablet 100 mg PO Q12H Print Language: Malaysian Patient Instructions: Doxycycline (By mouth), Amoxicillin (By mouth) (Amoxicot, Amoxil, Amoxil Pediatric, Trimox,..., Cellulitis (GEN) Graduate Student Instructor/Film And Video Graphics Designer Instructions: Resume [facility]. Phone number is [phone] Forms: Portal Instructions Follow Up Appointments: Dr Debbie Garza, December 01 at 1 PM
--- NOTE | 2024-11-25 09:43 | SWNOTE1 ---
Pt is being discharged today. Discharge summary, dc med rec, and CRF faxed to [facility].
--- NOTE | 2024-11-25 10:30 | CM.NOTE ---
Discussed with pt diabetes and A1c results, pt had an appointment scheduled today with product development ecologist and her daughter has rescheduled appointment. Pt will have f/u next month. Pt verbalizes understanding of diabetes and will speak with product development ecologist about medication adjustment. Pt provided information general regarding diet and exercise. Pt also has seen [facility] life skills educator in the past. Denies need for further education at this time.
--- OUTSIDE RECORDS SUMMARY | 2024-11-26 06:32 | XMS_ITS | Encounter Summary ---
Author Organization [facility] Address [address] [place] [address] Care Team Providers Care Emergency Preparedness Manager Name Role Phone Sandra Lewis Primary Care Provider [phone] Sandra Lewis DO Primary Care Provider [phone] Encounter Details Date Type Department Care Team (Late Contact Info) Description 12/13/2023 Orders Only [facility] [phone] [place] [phone] Luan Kincaid MD [address] [place], [place] [id number] Social History Tobacco Use Types Packs/Day Years [...] [address] [place] [phone] Maureen Fritz, DPM [address] [facility] [address] [place] [address] 12/11/2024 1:15 PM EDT Procedure Visit [facility] [address] [place] [phone] Luan Kincaid MD [address] [id number] 12/18/2024 1:15 PM EDT Procedure Visit [facility] [address] [facility] [address] [place] [address] Luan Kincaid MD [address] [id number] 01/19/2025 4:00 PM EDT Office Visit [facility] [address] [facility] [address] [place] [phone] Luan Kincaid MD [address] [id number] documented as of this encounter Visit Diagnoses Not on filedocumented in this encounter Care Teams Emergency Preparedness Manager Relationship Specialty Start Date End Date Sandra Lewis DO PCP - General Family Medicine 01/09/23 10/14/24 Sandra Lewis DO [address] [facility] [place] [phone] PCP - General Family Medicine 10/15/24 documented as of this encounter
--- OUTSIDE RECORDS SUMMARY | 2024-11-26 06:32 | XMS_ITS | Encounter Summary ---
Author Organization [facility] Address [address] [place] [address] Care Team Providers Care Warehouse Specialist Name Role Phone Sandra Lewis Primary Care Provider [phone] Reason for Referral * Other Medical (Routine) - Authorized Specialty Diagnoses / Procedures Referred By Tahmina t Referred To Contact Neurology Diagnoses Arm weakness Numbness Arm pain, right Arm pain, left Procedures EMG AND NERVE CONDUCTION STUDY Luan Kincaid MD [address] [place] [address] Phone: tel: fax: Luan Kincaid MD [address] [place] [address] Phone: tel: fax: Referral ID Status Reason Start Date Expiration Date Visits Requested Visits Authorized [id number] Authorized Perform Procedure 11/16/2024 05/15/2025 1 1 Encounter Details Date Type Department Care Team (Late st Contact Info) Description 11/16/2024 Telephone [facility] 111 [address] [place] [phone] Shantel Parsons MA Social History Tobacco Use [...] [address] [place] [phone] Maureen Fritz DPM [address] [place] [address] 12/11/2024 1:15 PM EDT Procedure [facility] [address] [place] [address] Luan Kincaid MD [address] [address] 12/18/2024 1:15 PM EDT Procedure Visit [facility] [address] [place] [address] Luan Kincaid MD [address] [place] [address] 01/19/2025 4:00 PM EDT Office Visit [facility] [address] [place] [address] Luan Kincaid MD [address] [address] Scheduled Orders Name Type Priority Associated Diagnoses [...] limb documented in this encounter Care Teams Warehouse Specialist Relationship Specialty Start Date End Date Sandra Lewis DO [address] [place] [address] PCP - General Family Medicine 10/15/24 documented as of this encounter
--- OUTSIDE RECORDS SUMMARY | 2024-11-26 06:32 | XMS_ITS | Clinical Summary ---
Author Organization [facility] Address [address] [place] [address] Phone Care Team Providers Care Soccer Referee Name Role Phone Debbie Sandra Fernandez DO Primary Care Provider [phone] Allergies Active Allergy Reactions Criticality Noted Date [...] Description 12/30/2024 1:40 PM EDT Office Visit [facility] 703 [facility] [address] [place] [address] [place]ust MD [facility]03 [facility] [address] [place] [address] Health Maintenance Due Date Last Done Comments CT Colonography 1955 Colonoscopy 1955 Colorectal Cancer [...] years 1-dose series) 2017 Mammogram 06/10/2021 06/10/2020 Bone Density Scan 2022 COVID-19 Vaccine ( - 2023-2 5 season) 2023 Influenza Vaccine [...] DUAL COMPLETE MEDICAID DUAL COMPLETE Care Teams Soccer Referee Relationship Specialty Start Date End Date Sandra Lewis DO [address] [place] [address] PCP - General Family Medicine 09/25/23
--- OUTSIDE RECORDS SUMMARY | 2024-11-26 06:32 | XMS_ITS | Encounter Summary ---
Author Organization [facility] Address [address] [facility] [place] [address] Care Team Providers Care Basketball Scout Name Role Phone Sandra Lewis Primary Care Provider [phone] Sandra Lewis DO Primary Care Provider [phone] Encounter Details Date Type Department Care Team (Late Contact Info) Description 12/17/2023 External Result Encounter [facility] External Department Unsolicited Luan Kincaid MD 5319 [place] [address] Social History Tobacco Use Types Packs/Day Years [...] Podiatry [address] [place] [address] Maureen Fritz DPM [address] [place] [address] 12/11/2024 1:15 PM EDT Procedure Visit [facility] [address] [facility] [place] [place] [address] Luan Kincaid MD 5319 [facility] [address] [phone] 12/18/2024 1:15 PM EDT Procedure Visit [facility] [address] [facility] [address] [place] [address] Luan Kincaid MD 5319 [facility] [address], [place] [phone] 01/19/2025 4:00 PM EDT Office Visit [facility] [address] [facility] [place] [address] Luan Kincaid MD 5319 [facility] [address] [phone] documented as of this encounter Procedures Procedure [...] Luan Bowling M.D.12/17/2023 12:50 PM Dictation Location: [place] [address] Transcribed By: [facility] 12/17/23 1250 Dictated By: Luan Bowling II, MD 12/17/23 1240 Signed By: <Electronically signed by Luan Bowling II, MD in OV> 12/17/23 1250 Narrative 12/17/2023 12:53 PM EDT [facility] Main [place] [address] [place] [address] MRI Report Signed Patient: Kerry Gay MR#: [id number] 19 : 1955 Acct:[id number] Age/Sex: 68 / F ADM Date: 12/17/23 Loc: [facility] Room: Type: REG CLI Attending Dr: Luan Kincaid MD Copies to: Luan Kincaid MD Ordering Provider: Luan Kincaid MD Date of Service: 12/17/23 MR/MR lumbar spine wo con: m54.17 ([id number]) XR/XR pre/post mri xray: post MRI lumbar [...] con Procedure Note Radiology, Radiologist, - 12/17/2023 [facility] Main [place] [address] [place] [address] MRI Report Signed Patient: Kerry Gay CMR#: [id number] 19 : 8Acct:[id number] Age/Sex: 68 / FADM Date: 12/17/23 Loc: [facility] Room:Type: [facility] Attending Dr: Luan Kincaid MD Copies to: Luan Kincaid MD Ordering Provider: Luan Kincaid MD Date of Service: 12/17/23 MR/MR lumbar spine wo con: m54.17 ([id number]) XR/XR pre/post mri xray: post MRI lumbar [...] Luan Bowling M.D.12/17/2023 12:50 PM Dictation Location: [place] [address] Transcribed By: AMY 12/17/23 1250 Dictated By: Luan Bowling II, MD 12/17/23 1240 Signed By: <Electronically signed by Luan Bowling II, inOV> 12/17/23 1250 us Luan Kincaid MD IMG MRI PROCEDURES Final Result documented in this encounter Visit Diagnoses Not on filedocumented in this encounter Care Teams Basketball Scout Relationship Specialty Start Date End Date Sandra Lewis DO PCP - General Family Medicine 01/09/23 10/14/24 Sandra [place] DO [address] [place] [phone] PCP - General Family Medicine 10/15/24 documented as of this encounter
--- OUTSIDE RECORDS SUMMARY | 2024-11-26 06:33 | XMS_ITS | Encounter Summary ---
Author Organization [facility] Address [address] [place] [address] Phone Care Team Providers Care Gas Flow Regulator Name Role Phone Sandra [place] DO Primary Care Provider [phone] Encounter Details Date Type Department Care Team (Late st Contact Info) Description 04/28/2024 Scanned Document [facility] [address] [place] [phone] Scanning, Generic Provider Social History Tobacco Use [...] Description 12/30/2024 1:40 PM EDT Office Visit [facility] [address] [address] [place] Faust MD 703 [facility] 2, [address] [place] [address] documented as of this encounter [...] documented as of this encounter Care Teams Gas Flow Regulator Relationship Specialty Start Date End Date Sandra [place] DO [address] [place] [address] PCP - General Family Medicine 09/25/23 documented as of this encounter
--- OUTSIDE RECORDS SUMMARY | 2024-11-26 06:33 | XMS_ITS | Encounter Summary ---
Author Organization [facility] Address [address] [place] [address] Care Team Providers Care Brand Director Name Role Phone Sandra [place] DO Primary Care Provider Reason for Visit * Reason Onset Date Comments HH Orders 11/18/2024 Encounter Details Date Type Department Care Team (Late st Contact Info) Description 11/18/2024 Telephone [facility] [place] [facility] [address] [place] [address] Beatrice Boyd MA HH Orders Social History [...] - 11/18/2024 1:45 PM EDT [place] from [facility] called and was wondering if we could fax over HH orders to [phone]. documented in this encounter Plan of Treatment Upcoming Encounters Date Type Department Care Team (Late st Contact Info) Description 11/30/2024 1:15 PM EDT Office Visit [facility] [place] [facility] [address] [place] [address] Maureen [place] DPM [address] [place] [address] 12/11/2024 1:15 PM EDT Procedure Visit [facility] [place] [facility] [address] [place] [address] Luan Kincaid MD 5319 [facility] [address] [place] [address] 12/18/2024 1:15 PM EDT Procedure Visit [facility] [place] [facility] [address] [place] [address] Luan Kincaid MD [address] [place] [address], [place] [address] 01/19/2025 4:00 PM EDT Office Visit [facility] [place] [facility] [address] [place] [address] Luan Kincaid MD [address] [address] documented as of this encounter Visit Diagnoses Diagnosis Ulcer of right foot with fat layer exposed (HCC)- Primary 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) documented in this encounter Care Teams Brand Director Relationship Specialty Start Date End Date Sandra [place] DO [address] [facility] [place] [address] PCP - General Family Medicine 10/15/24 documented as of this encounter
--- OUTSIDE RECORDS SUMMARY | 2024-11-26 06:33 | XMS_ITS | Encounter Summary ---
Author Organization [facility] Address [address] [place] [address] Phone Care Team Providers Care Job Developer Name Role Phone Sandra [place] DO Primary Care Provider [phone] Encounter Details Date Type Department Care Team (Late st Contact Info) Description 01/06/2024 Scanned Document [facility] [address] [place] [phone] Scanning, Generic Provider Social History Tobacco Use [...] PM EDT Office Visit [facility] 703 [facility] [address] [place] [address] [place] Faust MD [address] [facility] [address] [address] [place] [address] Scheduled Orders Name Type Priority Associated Diagnoses Orde r Schedule Ultrasound- OnBase Scan Imaging O rdered: 01/06/2024 documented as of this encounter Visit Diagnoses Not on filedocumented in this encounter Additional Health Concerns Assessment Noted Time A fall risk assessment has been complete d for the patient 12/16/2023 10:41 AM EDT documented as of this encounter Care Teams Job Developer Relationship Specialty Start Date End Date Sandra [place] DO [address] [place] [address] PCP - General Family Medicine 09/25/23 documented as of this encounter
--- OUTSIDE RECORDS SUMMARY | 2024-11-26 06:33 | XMS_ITS | Encounter Summary ---
Author Organization [facility] Address [address] [place] [address] Care Team Providers Care Tower Truck Driver Name Role Phone Sandra Lewis DO Primary Care Provider [phone] Encounter Details Date Type Department Care Team (Late st Contact Info) Description 11/18/2024 Telephone [facility] [place] [facility] [address] [place] [address] Maureen Fritz DPM [address] [place] [address] Social History Tobacco Use Types Packs/Day Years [...] [address] [place] [address] Maureen Fritz DPM [address] [place] [address] 12/11/2024 1:15 PM EDT Procedure Visit [facility] [address] [place] [address] Luan Kincaid MD [address] [place] [address] 12/18/2024 1:15 PM EDT Procedure Visit [facility] [address] [place] [address] Luan Kincaid MD [address] [place] [address], [place] [address] 01/19/2025 4:00 PM EDT Office Visit [facility] [address] [place] [address] Luan Kincaid MD [address] [place] [address], [place] [address] documented as of this encounter Visit Diagnoses Not on filedocumented in this encounter Care Teams Tower Truck Driver Relationship Specialty Start Date End Date Sandra [place] DO 25[address] [facility] [place] [address] PCP - General Family Medicine 10/15/24 documented as of this encounter
--- OUTSIDE RECORDS SUMMARY | 2024-11-26 06:33 | XMS_ITS | Encounter Summary ---
Author Organization [facility] Address [address] [place] [address] Phone Care Team Providers Care Market News Reporter Name Role Phone Sandra Lewis DO Primary Care Provider [phone] Encounter Details Date Type Department Care Team (Late st Contact Info) Description 04/30/2024 Scanned Document [facility] [address] [place] [phone] Scanning, Generic Provider Social History Tobacco Use [...] Description 12/30/2024 1:40 PM EDT Office Visit [facility] [address] [facility] [address] [place] [address] [place] Faust MD 703 [facility] [address], [address] [place] [address] documented as of this encounter Visit Diagnoses Not on filedocumented in this encounter Additional Health Concerns Assessment Noted Time A fall risk assessment has been complete d for the patient 12/16/2023 10:41 AM EDT documented as of this encounter Care Teams Market News Reporter Relationship Specialty Start Date End Date Sandra [place] DO [address] [place] [address] PCP - General Family Medicine 09/25/23 documented as of this encounter
--- OUTSIDE RECORDS SUMMARY | 2024-11-26 06:33 | XMS_ITS | Encounter Summary ---
Author Organization [facility] Address [address] [place] [address] Care Team Providers Care Courtesy Bus Driver Name Role Phone Sandra [place] DO Primary Care Provider [phone] Encounter Details Date Type Department Care Team [...] Podiatry [address] [place] [address] Maureen Fritz DPM [address] [place] [address] 12/11/2024 1:15 PM EDT Procedure Visit [facility] [address] [place] [address] Luan Kincaid MD [address] [address] 12/18/2024 1:15 PM EDT Procedure [facility] [address] [facility] [place] [address] Luan Kincaid MD [address] [phone] 01/19/2025 4:00 PM EDT Office Visit [facility] [address] [facility] [place] [address] Luan Kincaid MD [address] [phone] documented as of this encounter Visit Diagnoses Not on filedocumented in this encounter Care Teams Courtesy Bus Driver Relationship Specialty Start Date End Date Sandra [place] DO [address] [place] [address] PCP - General Family Medicine 10/15/24 documented as of this encounter
--- OUTSIDE RECORDS SUMMARY | 2024-11-26 06:33 | XMS_ITS | Clinical Summary ---
Author Organization [facility] Address [address] [place] [address] Care Team Providers Care Parquetry Floor Layer Name Role Phone Sandra Lewis DO Primary Care Provider [phone] Allergies Active Allergy Reactions Criticality Noted Date Comments Sulfa Antibiotics GI intolerance,Unknown 2018 Medications Continuous Blood Gluc Sensor ([employer]Style Brent 14 Day Sensor) [facility] apply 1 SENSOR as directed every 14 days use with DEVICE to MONIT... (REFER TO PRESCRIPTION NOTES). 12/22/19 23 Active Toujeo SoloStar 300 UNIT/ML injection inject 20 units subcutaneously as directed 12/13/19 23 Active Droplet Pen [place] 32G X 4 MM [facility] use 1 PEN NEEDLE to inject MEDICATION [...] 3:08 PM EDT): (Continue current regimen.) Get [facility] records - neuro consults, EEG, MR, carotids, echo, discharge summary. Assessment & Plan (04/07/2024 2:16 PM EST): Pt to retry donepezil 15 qam (or 10/5). Assessment & Plan (02/25/2024 2:59 PM EDT): Add memantine 10 -> bid. Then add donepezil 10, titrate. Handout. Get MR images transferred to [facility] PACS for my review. Guyon syndrome, unspecified [...] Plan (12/12/2023 2:49 PM EDT): Consult Drs. aVng/Lisa - PO positive, titer increasing, but subtests neg. Known peripheral neuropathy, worsening. Get full set of labs ([facility]). We have some but not all - [...] Problem Noted Date Diagnosed Date Resolved Date BOSTNO (obstructive sleep apnea) 10/29/2023 10/29/2023 Encounters Date Type Department Care Team Description 11/23/2024 2:45 PM EDT Office Visit [facility] [address] [place] [address] Maureen Fritz, DPM Ulcer of right foot with fat layer exposed (HCC) (Primary Dx); 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); Abscess of right foot; At increased risk for emergency hospital admission 11/23/2024 Bamboo flowsheet [facility] [address] [place] [address] Maureen Fritz, DPM 11/23/2024 Travel 11/20/2024 Telephone [facility] [address] [place] [address] Beatrice Boyd MA HH Orders Clarification 11/18/2024 Telephone [facility] [address] [place] [address] Beatrice Boyd MA HH Orders 11/18/2024 Telephone [facility] [address] [place] [address] Maureen Fritz, DPM 11/16/2024 4:00 PM EDT Office Visit [facility] [place] [facility] [address] [place] [address] Maureen Fritz, DPZenon Ulcer of right foot with fat layer exposed (HCC) (Primary Dx); 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); Cellulitis of right foot; Deformity of toe, right 11/16/2024 External Result Encounter [facility] External Department Unsolicited Maureen Fritz DPM 11/16/2024 Travel 11/16/2024 Telephone [facility] [address] [place] [address] Shantel Parsons MA 10/31/2024 Refill [facility] [address] [place] [address] Luan Kincaid MD Neurogenic pain 10/21/2024 Telephone [facility] [address] [address] Luan Kincaid MD 10/20/2024 10:45 AM EDT Office Visit [facility] [place] [facility] [address] [place] [address] Maureen Fritz, DPM Ulcer of right foot with fat layer exposed (HCC) (Primary Dx); 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); Blister of right foot, initial encounter; Deformity, foot, right 10/20/2024 Bamboo flowsheet [facility] [place] [facility] [address] [place] [address] Maureen Fritz, DPM 10/20/2024 Travel 10/15/2024 Telephone [facility] [facility] [address] [facility] [address] [place] [address] Maureen Fritz, DPM 10/07/2024 Telephone [facility] [address] [facility] [address] [address] Luan Kincaid MD 10/06/2024 1:45 PM EDT Office Visit [facility] [place] [facility] [address] [facility] [address] [place] [address] Luan Kincaid MD Weakness of both lower extremities (Primary Dx); Carpal tunnel syndrome, bilateral; Cognitive decline; Cervical paraspinal muscle spasm; B12 deficiency; Guyon syndrome, unspecified laterality; Numbness; Leg pain, left; Leg pain, right; Bilateral leg weakness 10/06/2024 Bamboo flowsheet [facility] [address] [place] [address] Luan Kincaid MD 10/06/2024 Travel from Last [...] Visit [facility] [address] [address] Maureen Fritz DPM [address] [address] 12/11/2024 1:15 PM EDT Procedure Visit [facility] [address] [facility] [address] [place] [address] Luan Kincaid MD 7763 [facility] [address] [address] 12/18/2024 1:15 PM EDT Procedure Visit [facility] [address] [facility] [address] [place] [address] Luan Kincaid MD [address] [facility] [address] [place], [place] [address] 01/19/2025 4:00 PM EDT Office Visit [facility] [address] [place] [address] Luan Kincaid MD [address] [facility] [address] [place], [place] [id number] Procedures Procedure Name Priority Date/Time Associated Diagnosis [...] <2(S) 11/18/2024 9:54 AM EDT [facility] CEFTAROLINE <0.5(S) 11/18/2024 9:54 AM EDT [facility] CIPROFLOXACIN <1(S) 11/18/2024 9:54 AM EDT [facility] CLINDAMYCIN 0.5(S) 11/18/2024 9:54 AM EDT [facility] DAPTOMYCIN 1(S) 11/18/2024 9:54 AM EDT [facility] LEVOFLOXACIN <1(S) 11/18/2024 9:54 AM EDT [facility] LINEZOLID 2(S) 11/18/2024 9:54 AM EDT [facility] OXACILLIN <0.25(S) 11/18/2024 9:54 AM EDT [facility] PENICILLIN >2(R) 11/18/2024 9:54 AM EDT [facility] TETRACYCLINE <4(S) 11/18/2024 9:54 AM EDT [facility] TRIMETHOPRIM/SULF AMETHOXAZOLE <0.5/9.5( S) 11/18/2024 9:54 AM EDT [facility] VANCOMYCIN 1(S) 11/18/2024 9:54 AM EDT [facility] Other Structure of right foot / Unknown 11/16/2024 4:48 PM EDT 11/16/2024 5:30 PM EDT Comment:Ulcer Maureen Fritz M [facility] Final Resu lt [facility] [address] [place] [address], [facility] [address] [place] [address] * (ABNORMAL) AEROBIC FAMILIA CHARGE ([id number]) (11/16/2024 4:48 PM EDT) AMIKACIN <16(S) 11/18/2024 9:54 AM EDT [facility] AMOXACILLIN/K CLAVULANATE <8/4(S) 11/18/2024 9:54 AM EDT [facility] AMPICILLIN/SULBAC ARREDONDO 8/4(S) 11/18/2024 9:54 AM EDT [facility] AZTREONAM <4(S) 11/18/2024 9:54 AM EDT [facility] CEFAZOLIN >16(R) 11/18/2024 9:54 AM EDT [facility] CEFEPIME <2(S) 11/18/2024 9:54 AM EDT [facility] CEFTAZIDIME <1(S) 11/18/2024 9:54 AM EDT [facility] CEFTAZIDIME/AVIBA CTAM <4(S) 11/18/2024 9:54 AM EDT [facility] CEFTOLOZANE/TAZOB ACTAM <2(S) 11/18/2024 9:54 AM EDT [facility] CEFTRIAXONE <1(S) 11/18/2024 9:54 AM EDT [facility] CEFUROXIME 8(S) 11/18/2024 9:54 AM EDT [facility] CIPROFLOXACIN <0.25(S) 11/18/2024 9:54 AM EDT [facility] ERTAPENEM <0.5(S) 11/18/2024 9:54 AM EDT [facility] GENTAMICIN <2(S) 11/18/2024 9:54 AM EDT [facility] LEVOFLOXACIN <0.5(S) 11/18/2024 9:54 AM EDT [facility] MEROPENEM <1(S) 11/18/2024 9:54 AM EDT [facility] MEROPENEM/VABORBA CTAM <2(S) 11/18/2024 9:54 AM EDT [facility] PIPERACILLIN/TAZO BACTAM <8(S) 11/18/2024 9:54 AM EDT [facility] TETRACYCLINE <4(S) 11/18/2024 9:54 AM EDT [facility] TIGECYCLINE <2(S) 11/18/2024 9:54 AM EDT [facility] TOBRAMYCIN <2(S) 11/18/2024 9:54 AM EDT [facility] TRIMETHOPRIM/SULF AMETHOXAZOLE <0.5/9.5( S) 11/18/2024 9:54 AM EDT [facility] Other Structure of right foot / Unknown 11/16/2024 4:48 PM EDT 11/16/2024 5:30 PM EDT Comment:Ulcer Maureen Fritz M [facility] Final Resu lt Performing Organization Address [facility] de Phone Number [facility] [address] [place] [address], [address] [address] * SUPERFICIAL WOUND CULTURE ([facility] (11/16/2024 4:48 PM EDT) [facility] ORGANISM Klebsiella oxytoca 9:54 AM EDT [facility] QUANTITY OF GROWTH Moderate Growth 11/18/2024 9:54 AM EDT [facility] ORGANISM Staphylococcus aureus 11/18/2024 9:54 AM EDT [facility] QUANTITY OF GROWTH Heavy Growth 11/18/2024 9:54 AM EDT [facility] Other Structure of right foot / Unknown 11/16/2024 4:48 PM EDT 11/16/2024 5:30 PM EDT Comment:Ulcer Maureen Fritz DPM LAB MICROBIOLOGY - GENERAL ORDERABLES Final Result Performing Organization Address [facility]/[employer] de Phone Number [facility] [address] [place] [address], [facility] [address] [place] [address] from Last 3 Months Insurance [employer] [place]ICAID [place] Care Teams Parquetry Floor Layer Relationship Specialty Start Date End Date Sandra Lewis DO [address] [facility] [place] [phone] PCP - General Family Medicine 10/15/24
--- OUTSIDE RECORDS SUMMARY | 2024-11-26 06:33 | XMS_ITS | Encounter Summary ---
Author Organization [facility] Address [address] [place] [address] Care Team Providers Care Transport Coordinator Name Role Phone Sandra Lewis DO Primary Care Provider [phone] Reason for Visit * Reason Onset Date Comments HH Orders Clarification 11/20/2024 Encounter Details Date Type Department Care Team (Late st Contact Info) Description 11/20/2024 Telephone [facility] [address] [place] [address] Beatrice Boyd MA HH Orders Clarification Social [...] Telephone Encounter - Beatrice Boyd MA - 11/24/2024 4:50 PM EDT [facility] was called regarding the above. LVM advising the above and to call our office if they have any questions. * Telephone Encounter - Maureen Fritz DPM - 11/24/2024 12:16 PM EDT Please advise [facility] that her right foot wound was much worse and I recommended that she go to the ER for admission, MRI, possible surgery. New orders will be given once she is discharged. * Telephone Encounter - Maureen Fritz DPM - 11/23/2024 1:50 PM EDT Patient is to be seen today and I can update [facility] order based on how her foot looks after her visit. * Telephone Encounter - Beatrice Boyd MA - 11/20/2024 12:31 PM EDT [place] from [facility] called regarding a clarification needed for the most recent orders they received from us. Alexandria stated [...] 11/30/2024 1:15 PM EDT Office Visit [facility] [address] [place] [address] Maureen Fritz DPM [address] [place] [address] 12/11/2024 1:15 PM EDT Procedure Visit [facility] [address] [place] [address] Luan Kincaid MD [address] [place] [address] 12/18/2024 1:15 PM EDT Procedure Visit [facility] [address] [facility] [place] [address] Luan Kincaid MD [address] [phone] 01/19/2025 4:00 PM EDT Office Visit [facility] [address] [facility] [place] [address] Luan Kincaid MD [address] [facility] [address] [phone] documented as of this encounter Visit Diagnoses Not on filedocumented in this encounter Care Teams Transport Coordinator Relationship Specialty Start Date End Date Sandra Lewis DO [address] [facility] [place] [address] PCP - General Family Medicine 10/15/24 documented as of this encounter
--- OUTSIDE RECORDS SUMMARY | 2024-11-26 06:33 | XMS_ITS | Encounter Summary ---
Author Organization [facility] Address [address] [place] [address] Phone Care Team Providers Care Rug Sizer Name Role Phone Sandra Lewis DO Primary Care Provider [phone] Encounter Details Date Type Department Care Team (Late st Contact Info) Description 11/09/2023 Scanned Document [facility] [address] [place] [address] Scanning, Generic Provider Social History Tobacco Use [...] Description 12/30/2024 1:40 PM EDT Office Visit [place] [address] [facility] [address] [place] [address] Roland Faust MD 703 [facility] [address], [address] [place] [address] documented as of this encounter Visit Diagnoses Not on filedocumented in this encounter Additional Health Concerns Assessment Noted Time A fall risk assessment has been complete d for the patient 10/07/2023 9:51 AM EDT documented as of this encounter Care Teams Rug Sizer Relationship Specialty Start Date End Date Sandra Lewis DO [address] [place] [address] PCP - General Family Medicine 09/25/23 documented as of this encounter
--- OUTSIDE RECORDS SUMMARY | 2024-11-26 06:33 | XMS_ITS | Encounter Summary ---
Author Organization [facility] Address [address] [place] [address] Care Team Providers Care Rock Singer Name Role Phone Sandra Lewis DO Primary Care Provider [phone] Encounter Details Date Type Department Care Team (Late st Contact Info) Description 11/23/2024 Bamboo flowsheet [facility] [address] [place] [address] Maureen Fritz DPM [address] [place] [address] Social History Tobacco Use Types Packs/Day Years [...] Podiatrkarlos [address] [place] [address] Maureen Fritz DPM [address] [place], [place] [phone] 12/11/2024 1:15 PM EDT Procedure Visit [facility] [address] [facility] [address] Luan Kincaid MD [address] [phone] 12/18/2024 1:15 PM EDT Procedure Visit [facility] [address] [facility] [address] [place] [address] Luan Kincaid MD [address] [phone] 01/19/2025 4:00 PM EDT Office Visit [facility] [address] [place] [facility] [place] [address] Luan Kincaid MD [address] [phone] documented as of this encounter Visit Diagnoses Not on filedocumented in this encounter Care Teams Rock Singer Relationship Specialty Start Date End Date Sandra Lewis DO 25[address] [facility] [place] [address] PCP - General Family Medicine 10/15/24 documented as of this encounter
--- OUTSIDE RECORDS SUMMARY | 2024-11-26 06:33 | XMS_ITS | Patient Health Record ---
Author Organization [facility] Address [address] [place] [address] Care Team Providers Care Customer Solutions Specialist Name Role Phone Dr. Edgar Garcia Primary Care Provider Reason For Referral No Information Plan Of Treatment No Information Insurance Providers Payer Name Payer Address Payer Phone Subscriber Number Group Number Insured Name Patient Relationship to Insured Coverage Start Date Coverage End Date MEDICARE CGS [address] [place] [address] [id number] PRITI TAYE Self - patient is the insured 1 MEDICAID [facility] TO [facility] [address] [place] [address] [id number] TAYE MARCOS Self - patient is the insured 1 DENT[employer] MEDICAID [place] [address] [place] [address] [phone] [id number] TAYE MARCOS Self - patient is the insured 1
--- OUTSIDE RECORDS SUMMARY | 2024-11-26 06:33 | XMS_ITS | Encounter Summary ---
Author Organization [facility] Address [address] [place] [address] Care Team Providers Care White Work Cleaner Name Role Phone Sandra Lewis DO Primary Care Provider [phone] Encounter Details Date Type Department Care Team [...] Podiatry [address] [place] [address] Maureen Fritz DPM [address] [place] [address] 12/11/2024 1:15 PM EDT Procedure Visit [facility] [address] [place] [address] Luan Kincaid MD [address] [address] 12/18/2024 1:15 PM EDT Procedure Visit [facility] [address] [facility] [place] [address] Luan Kincaid MD [address] [phone] 01/19/2025 4:00 PM EDT Office Visit [facility] [address] [facility] [place] [address] Luan Kincaid MD [address] [phone] documented as of this encounter Visit Diagnoses Not on filedocumented in this encounter Care Teams White Work Cleaner Relationship Specialty Start Date End Date Sandra Lewis DO [address] [address] PCP - General Family Medicine 10/15/24 documented as of this encounter
--- OUTSIDE RECORDS SUMMARY | 2024-11-26 06:33 | XMS_ITS | Encounter Summary ---
Author Organization [facility] Address [address] [place] [address] Phone Care Team Providers Care Supplier Manager Name Role Phone Sandra Lewis DO Primary Care Provider [phone] Encounter Details Date Type Department Care Team (Late st Contact Info) Description 09/14/2023 Scanned Document [facility] [address] [place] [phone] Scanning, Generic Provider Social History Tobacco Use [...] Description 12/30/2024 1:40 PM EDT Office Visit [facility] 703 [facility] [address] [place] [address] Roland Faust MD [address] [facility] 2, [address] [place] [address] documented as of this encounter Visit Diagnoses Not on filedocumented in this encounter Care Teams Supplier Manager Relationship Specialty Start Date End Date Sandra Lewis DO [address] [facility] [place] [address] PCP - General Family Medicine 09/25/23 documented as of this encounter
--- OUTSIDE RECORDS SUMMARY | 2024-11-26 06:33 | XMS_ITS | Clinical Summary ---
Author Organization [facility] Address [address] [place] [address] Care Team Providers Care Strand And Binder Controller Name Role Phone Darrell Weinstein Primary Care Provider [phone] Nereida Castro MD Unavailable [phone] Allergies Active Allergy Reactions Criticality Noted [...] N ot on file 04/03/2020 Data from: [email or web address] Last address used for calculation Not on [...] COMP METABOLIC PANEL (12/17/2018 3:05 PM EDT) [facility] Protein, Total 7.6 6.3 - 8.0 g/dL 12/18/2018 3:35 AM [facility] Albumin 4.2 3.9 - 4.9 g/dL 12/18/2018 3:35 AM [facility] Calcium 10.6(H) 8.5 - 10.2 mg/dL 12/18/2018 3:35 AM [facility] Bilirubin, Total 0.3 0.2 - 1.3 mg/dL 12/18/2018 3:35 AM [facility] Alkaline Phosphatase 88 34 - 123 U/L 12/18/2018 3:35 AM [facility] AST 28 13 - 35 U/L 12/18/2018 3:35 AM [facility] Glucose 89 74 - 99 mg/dL 12/18/2018 3:35 AM [facility] Comment: The [place] Diabetes Association (ADA) provides guidance for cutoff [...] Standards of Medical Care in Diabetes 2016, [place] Diabetes Association. Diabetes Care. 2016.39(Suppl 1). BUN 10 7 - 21 mg/dL 12/18/2018 3:35 AM [facility] Creatinine 0.73 0.58 - 0.96 mg/dL 12/18/2018 3:35 AM [facility] Sodium 138 136 - 144 mmol/L 12/18/2018 3:35 AM [facility] Potassium 4.4 3.7 - 5.1 mmol/L 12/18/2018 3:35 AM [facility] Chloride 100 97 - 105 mmol/L 12/18/2018 3:35 AM EDT [facility] CO2 21(L) 22 - 30 mmol/L 12/18/2018 3:35 AM EDT [facility] Anion Gap 17 9 - 18 mmol/L 12/18/2018 3:35 AM EDT [facility] ALT 22 7 - 38 U/L 12/18/2018 3:35 AM EDT [facility] eGFR- >60 12/18/2018 3:35 AM EDT [facility] eGFR-All Other Races >60 . 12/18/2018 3:35 AM EDT [facility] Comment: eGFR (Estimated GFR) Units of [...] EDT 12/17/2018 3:07 PM EDT Shantel Celestin APRN.BROKERAGE OFFICE MANAGER LABORATORY Final R esult [facility] [address] [place] [address] [facility] [address] [place] [address] from Last 3 Months or Most Recently Relevant to Health Maintenance Insurance [facility] MEDICARE ADVANTAGE HMO Care Teams Strand And Binder Controller Relationship Specialty Start Date End Date Darrell Weinstein [address] [facility] [address] [place] [address] PCP - General Family Medicine 11/06/18 Nereida Castro MD [address]10 [facility] [address] [place] [address] Referring Obstetrics 11/06/18
--- OUTSIDE RECORDS SUMMARY | 2024-11-26 06:33 | XMS_ITS | Encounter Summary ---
Author Organization [facility] Address [address] [place] [address] Phone Care Team Providers Care Clinical Information Systems Director Name Role Phone Sandra Lewis DO Primary Care Provider [phone] Encounter Details Date Type Department Care Team (Late st Contact Info) Description 12/02/2023 Scanned Document [facility] [address] [place] [phone] Scanning, Generic Provider Social History Tobacco Use [...] Description 12/30/2024 1:40 PM EDT Office Visit [facility] 703 [facility] [address] [place] [address] Roland Faust MD 703 [facility] 2, [address] [place] [address] documented as of this encounter Visit Diagnoses Not on filedocumented in this encounter Additional Health Concerns Assessment Noted Time A fall risk assessment has been complete d for the patient 11/13/2023 1:54 PM EDT documented as of this encounter Care Teams Clinical Information Systems Director Relationship Specialty Start Date End Date Sandra Lewis DO [address] [facility] [place] [address] PCP - General Family Medicine 09/25/23 documented as of this encounter
--- OUTSIDE RECORDS SUMMARY | 2024-11-26 06:33 | XMS_ITS | Encounter Summary ---
Author Organization [facility] Address [address] [place] [address] Care Team Providers Care Truck Repair Supervisor Name Role Phone Sandra Lewis DO Primary Care Provider [phone] Encounter Details Date Type Department Care Team (Late st Contact Info) Description 11/16/2024 External Result Encounter [facility] External Department Unsolicited Maureen Fritz DPM [address] [place] [address] Social History Tobacco Use Types Packs/Day Years [...] Podiatry [address] [place] [address] Maureen Fritz DPM [address] [place] [address] 12/11/2024 1:15 PM EDT Procedure Visit [facility] [address] [place] [address] Luan Kincaid MD [address] [facility] [address] [place] [address] 12/18/2024 1:15 PM EDT Procedure Visit [facility] [address] [place] [address] Luan Kincaid MD 5319 Isis Saldivar [address], [place] [phone] 01/19/2025 4:00 PM EDT Office Visit [facility] [address] [facility] [address] [place] [address] Luan Kincaid MD [address] [facility] [address], [place] [phone] documented as of this encounter Procedures Procedure Name Priority Date/Time Associated Diagnosis Comments AEROBIC FAMILIA CHARGE (PCMIC38) Routine 11/16/2024 4:48 PM EDT AEROBIC FAMILIA CHARGE (NMIC56) Routine 11/16/2024 4:48 PM EDT SUPERFICIAL WOUND CULTURE (FR) Routine 11/16/2024 4:48 PM EDT documented in this encounter Results * (ABNORMAL) AEROBIC FAMILIA CHARGE (PCMIC38) (11/16/2024 4:48 PM EDT) AZITHROMYCIN <2(S) 11/18/2024 9:54 AM EDT [facility] CEFTAROLINE <0.5(S) 11/18/2024 9:54 AM EDT [facility] CIPROFLOXACIN <1(S) 11/18/2024 9:54 AM EDT [facility] CLINDAMYCIN 0.5(S) 11/18/2024 9:54 AM EDT [facility] DAPTOMYCIN 1(S) 11/18/2024 9:54 AM EDT [facility] LEVOFLOXACIN <1(S) 11/18/2024 9:54 AM EDT [facility] LINEZOLID 2(S) 11/18/2024 9:54 AM EDT [facility] OXACILLIN <0.25(S) 11/18/2024 9:54 AM EDT [facility] PENICILLIN >2(R) 11/18/2024 9:54 AM EDT [facility] TETRACYCLINE <4(S) 11/18/2024 9:54 AM EDT [facility] TRIMETHOPRIM/SULF AMETHOXAZOLE <0.5/9.5( S) 11/18/2024 9:54 AM EDT [facility] VANCOMYCIN 1(S) 11/18/2024 9:54 AM EDT [facility] Other Structure of right foot / Unknown 11/16/2024 4:48 PM EDT 11/16/2024 5:30 PM EDT Comment:Ulcer us Maureen Fritz M [facility] Final Resu lt [facility] [address] [id number], [place] [address] [phone] * (ABNORMAL) AEROBIC FAMILIA CHARGE (NMIC56) (11/16/2024 4:48 PM EDT) AMIKACIN <16(S) 11/18/2024 9:54 AM EDT [facility] AMOXACILLIN/K CLAVULANATE <8/4(S) 11/18/2024 9:54 AM EDT [facility] AMPICILLIN/SULBAC ARREDONDO 8/4(S) 11/18/2024 9:54 AM EDT [facility] AZTREONAM <4(S) 11/18/2024 9:54 AM EDT [facility] CEFAZOLIN >16(R) 11/18/2024 9:54 AM EDT [facility] CEFEPIME <2(S) 11/18/2024 9:54 AM EDT [facility] CEFTAZIDIME <1(S) 11/18/2024 9:54 AM EDT [facility] CEFTAZIDIME/AVIBA CTAM <4(S) 11/18/2024 9:54 AM EDT [facility] CEFTOLOZANE/TAZOB ACTAM <2(S) 11/18/2024 9:54 AM EDT [facility] CEFTRIAXONE <1(S) 11/18/2024 9:54 AM EDT [facility] CEFUROXIME 8(S) 11/18/2024 9:54 AM EDT [facility] CIPROFLOXACIN <0.25(S) 11/18/2024 9:54 AM EDT [facility] ERTAPENEM <0.5(S) 11/18/2024 9:54 AM EDT [facility] GENTAMICIN <2(S) 11/18/2024 9:54 AM EDT [facility] LEVOFLOXACIN <0.5(S) 11/18/2024 9:54 AM EDT [facility] MEROPENEM <1(S) 11/18/2024 9:54 AM EDT [facility] MEROPENEM/VABORBA CTAM <2(S) 11/18/2024 9:54 AM EDT [facility] PIPERACILLIN/TAZO BACTAM <8(S) 11/18/2024 9:54 AM EDT [facility] TETRACYCLINE <4(S) 11/18/2024 9:54 AM EDT [facility] TIGECYCLINE <2(S) 11/18/2024 9:54 AM EDT [facility] TOBRAMYCIN <2(S) 11/18/2024 9:54 AM EDT [facility] TRIMETHOPRIM/SULF AMETHOXAZOLE <0.5/9.5( S) 11/18/2024 9:54 AM EDT [facility] Other Structure of right foot / Unknown 11/16/2024 4:48 PM EDT 11/16/2024 5:30 PM EDT Comment:Ulcer Maureen Fritz DPM [facility] Final Resu lt Performing Organization Address [facility] Co de Phone Number [facility] [address] [facility] [place] [address], [place] [address] [place] [address] * SUPERFICIAL WOUND CULTURE ([facility]) (11/16/2024 4:48 PM EDT) [facility] ORGANISM Klebsiella oxytoca 9:54 AM EDT [facility] QUANTITY OF GROWTH Moderate Growth 11/18/2024 9:54 AM EDT [facility] ORGANISM Staphylococcus aureus 11/18/2024 9:54 AM EDT [facility] QUANTITY OF GROWTH Heavy Growth 11/18/2024 9:54 AM EDT [facility] Other Structure of right foot / Unknown 11/16/2024 4:48 PM EDT 11/16/2024 5:30 PM EDT Comment:Ulcer Maureen Fritz DPM LAB MICROBIOLOGY - GENERAL ORDERABLES Final Result Performing Organization Address [facility] Co de Phone Number [facility] [address] [facility] [place] [place] [address], [place] [address] [place] [address] documented in this encounter Visit Diagnoses Not on filedocumented in this encounter Care Teams Truck Repair Supervisor Relationship Specialty Start Date End Date Sandra Lewis DO [address] [facility] [place] [address] PCP - General Family Medicine 10/15/24 documented as of this encounter
--- OUTSIDE RECORDS SUMMARY | 2024-11-26 06:33 | XMS_ITS | Encounter Summary ---
Author Organization [facility] Address [address] [place] [address] Phone Care Team Providers Care File Keeper Name Role Phone Sandra Lewis DO Primary Care Provider [phone] Encounter Details Date Type Department Care Team (Late st Contact Info) Description 11/10/2023 Scanned Document [facility] [address] [place] [phone] Scanning, Generic Provider Social History Tobacco Use [...] Description 12/30/2024 1:40 PM EDT Office Visit [facility] [address] [facility] [address] [place] [address] Roland Faust MD [address] [facility] [address] [place] [address] documented as of this encounter [...] documented as of this encounter Care Teams File Keeper Relationship Specialty Start Date End Date Sandra Lewis DO [address] [facility] [place] [address] PCP - General Family Medicine 09/25/23 documented as of this encounter
--- OUTSIDE RECORDS SUMMARY | 2024-11-26 06:33 | XMS_ITS | Encounter Summary ---
Author Organization [facility] Address [address] [facility] [place] [address] Care Team Providers Care Manager User Interface Name Role Phone Sandra Lewis Primary Care Provider [phone] Sandra Lewis DO Primary Care Provider [phone] Encounter Details Date Type Department Care Team (Late Contact Info) Description 10/30/2023 External Result Encounter [facility] External Department Unsolicited Luan Kincaid MD 53[address] [facility] [place] [address] Social History Tobacco Use Types Packs/Day Years [...] Podiatry [address] [place] [address] Maureen Fritz DPM [address] [place] [address] 12/11/2024 1:15 PM EDT Procedure Visit [facility] [address] [facility] [place] [address] Luan Kincaid MD 5319 [facility] [address] [phone] 12/18/2024 1:15 PM EDT Procedure Visit [facility] [address] [facility] [place] [address] Luan Kincaid MD 5319 [facility] [address] [phone] 01/19/2025 4:00 PM EDT Office Visit [facility] [address] [facility] [place] [address] Luan Kincaid MD 5319 [facility] [address] [phone] documented as of this encounter Procedures Procedure [...] Segovia Jr., D.O.10/30/2023 3:15 PM Dictation Location: [place] [address] Transcribed By: PWS 10/30/231514 Dictated By: Edgar Segovia Jr, DO 10/30/23 151 Signed By: <Electronically signed by Edgar Segovia Jr, DO in OV> 10/30/23 1515 Narrative 10/30/2023 3:17 [place] [address] XRay Report Signed Patient: Kerry Gay MR#: [id number] [birth year] : 1955 Acct:[id number] Age/Sex: 67 / F ADM Date: 10/30/23 [...] Procedure Note Radiology, Radiologist, MD - 10/30/2023 [place] [address] XRay Report Signed Patient: Kerry Gay CMR#: [id number] 19 : 8Acct:[id number] Age/Sex: 67 / FADM Date: 10/30/23 Loc: [...] Segovia Jr., D.O.10/30/2023 3:15 PM Dictation Location: [place] [address] Transcribed By: [facility] 10/30/23 1515 Dictated By: Edgar Segovia Jr, DO 10/30/23 1514 Signed By: <Electronically signed by Edgar Segovia Jr, DO inOV> 10/30/23 1515 Luan Kincaid MD IMG XR PROCEDURES Final Result documented in this encounter Visit Diagnoses Not on filedocumented in this encounter Care Teams Manager User Interface Relationship Specialty Start Date End Date Sandra Lewis DO PCP - General Family Medicine 01/09/23 10/14/24 Sandra Lewis DO [address] [place] [address] PCP - General Family Medicine 10/15/24 documented as of this encounter
--- OUTSIDE RECORDS SUMMARY | 2024-11-26 06:33 | XMS_ITS | Encounter Summary ---
Author Organization [facility] Address [address] [place] [address] Phone Care Team Providers Care Venture Capital Analyst Name Role Phone Sandra Lewis Primary Care Provider [phone] Encounter Details Date Type Department Care Team (Late st Contact Info) Description 09/12/2023 Scanned Document [facility] [address] [place] [phone] Scanning, Generic Provider Social History Tobacco Use [...] Description 12/30/2024 1:40 PM EDT Office Visit [facility] [address] [address] Roland Faust MD 703 [facility], [address] [place], [place] [address] documented as of this encounter Procedures Procedure [...] on filedocumented in this encounter Care Teams Venture Capital Analyst Relationship Specialty Start Date End Date Sandra Lewis DO [address] [place] [address] PCP - General Family Medicine 09/25/23 documented as of this encounter
--- OUTSIDE RECORDS SUMMARY | 2024-11-26 06:33 | XMS_ITS | Encounter Summary ---
Author Organization [facility] Address [address] [place] [address] Care Team Providers Care Tool Specialist Name Role Phone Darrell Weinstein Primary Care Provider [phone] Nereida Castro MD Unavailable [phone] Source Comments In the event this information is protected by the Federal Confidentiality of Alcohol and Drug AbusePatient Records regulations: The Federal rules restrict any use of the information to criminally investigate or prosecute any alcohol or drug abuse patient.[facility] Encounter Details Date Type Department Care Team (Late st Contact Info) Description 2022 [place] [address] Provider, f Medicare Coverage of Physical Exams [...] on file 04/03/2020 Data from: https://[email or web address] Last address used for calculation Not [...] on filedocumented in this encounter Care Teams Tool Specialist Relationship Specialty Start Date End Date Darrell Weinstein [address] [facility] [address] [place] [address] PCP - General Family Medicine 11/06/18 Nereida [place] MD [address] [facility] [address] [place] [address] Referring Obstetrics 11/06/18 documented as of this encounter
--- OUTSIDE RECORDS SUMMARY | 2024-11-26 06:33 | XMS_ITS | Encounter Summary ---
Author Organization [facility] Address [address] [place] [address] Phone Care Team Providers Care Commercial Development Manager Name Role Phone Sandra Lewis DO Primary Care Provider [phone] Encounter Details Date Type Department Care Team (Late st Contact Info) Description 11/11/2023 Scanned Document [facility] [address] [place] [phone] Scanning, Generic Provider Social History Tobacco Use [...] Description 12/30/2024 1:40 PM EDT Office Visit [facility] [address] [facility] [address] [place] [address] Roland Faust MD [address] [facility] [address] [place] [address] documented as of this encounter Visit Diagnoses Not on filedocumented in this encounter Additional Health Concerns Assessment Noted Time A fall risk assessment has been complete d for the patient 10/07/2023 9:51 AM EDT documented as of this encounter Care Teams Commercial Development Manager Relationship Specialty Start Date End Date Sandra Lewis DO [address] [facility] [place] [address] PCP - General Family Medicine 09/25/23 documented as of this encounter
--- OUTSIDE RECORDS SUMMARY | 2024-11-26 06:33 | XMS_ITS | Encounter Summary ---
Author Organization [facility] Address [address] [place] [address] Phone Care Team Providers Care Car Barn Laborer Name Role Phone Sandra Lewis DO Primary Care Provider [phone] Encounter Details Date Type Department Care Team (Late st Contact Info) Description 09/13/2023 Scanned Document [facility] [address] [place] [phone] Scanning, Generic Provider Social History Tobacco Use [...] EDT Office Visit [facility] [address]03 [facility] [address] [place] [address] Roland Faust MD 703 [facility] [address], [address] [place] [address] documented as of this encounter Visit Diagnoses Not on filedocumented in this encounter Care Teams Car Barn Laborer Relationship Specialty Start Date End Date Sandra Lewis DO [address] [facility] [place] [address] PCP - General Family Medicine 09/25/23 documented as of this encounter
--- OUTSIDE RECORDS SUMMARY | 2024-11-26 06:33 | XMS_ITS | Encounter Summary ---
Author Organization [facility] Address [address] [place] [address] Phone Care Team Providers Care Delivery Coordinator Name Role Phone Sandra Lewis DO Primary Care Provider [phone] Encounter Details Date Type Department Care Team (Late st Contact Info) Description 11/12/2023 Scanned Document [facility] [address] [place] [phone] Scanning, Generic Provider Social History Tobacco Use [...] Description 12/30/2024 1:40 PM EDT Office Visit [facility] 7[address] [facility] [address] [place] [address] Roland Faust MD 703 [facility] [address] [place] [address] documented as of this encounter Visit Diagnoses Not on filedocumented in this encounter Additional Health Concerns Assessment Noted Time A fall risk assessment has been complete d for the patient 10/07/2023 9:51 AM EDT documented as of this encounter Care Teams Delivery Coordinator Relationship Specialty Start Date End Date Sandra Lewis DO [address] [facility] [place] [address] PCP - General Family Medicine 09/25/23 documented as of this encounter
--- OUTSIDE RECORDS SUMMARY | 2024-11-26 06:33 | XMS_ITS | Encounter Summary ---
Author Organization [facility] Address [address] [place] [address] Phone Care Team Providers Care Commercial Hvac Technician Name Role Phone Sandra Lewis DO Primary Care Provider [phone] Encounter Details Date Type Department Care Team (Late st Contact Info) Description 2023 Scanned Document [facility] [address] [place] [phone] Scanning, Generic Provider Social History Tobacco Use [...] Description 12/30/2024 1:40 PM EDT Office Visit [facility] [address] [facility] [address] [place] [address] Roland Faust MD [address] [facility] [address] [place] [address] documented as of this encounter Visit Diagnoses Not on filedocumented in this encounter Additional Health Concerns Assessment Noted Time A fall risk assessment has been complete d for the patient 11/13/2023 1:54 PM EDT documented as of this encounter Care Teams Commercial Hvac Technician Relationship Specialty Start Date End Date Sandra Lewis DO [address] [facility] [place] [address] PCP - General Family Medicine 09/25/23 documented as of this encounter
--- OUTSIDE RECORDS SUMMARY | 2024-11-26 06:35 | XMS_ITS | CCD ---
Author Organization [facility] CliniSywy Care Team Providers Care Strategic Partnership Representative Name Role Phone MATTHEW VOSS MD Unavailable [...] Other Provider MD Wilmer Vance Attending Provider [phone] DO Jonas Yoder Primary Care Provider NO FAMILY, PHYSICIAN Primary Care Provider Unava ilable DO Rl Villavicencio Emergency Provider Francesca Santos Attending Unavailable ARLEEN STEPHEN Referring Unavailable Teresa Strong Attending Unavailable ARLEEN STEPHEN Referring Unavailable Teresa Strong Attending Unavailable Teresa Strong Attending Unavailable Sandra Keita Unavailable Tolu Salinas Unavailable DO Sandra Keita Primary Care Provider DO Sandra Keita Attending Provider [phone] Reyna Dallas Unavailable Brayden Noble Unavailable DO Jonas Yoder Primary Care Provider NITZA [...] Provider MD Cara Tenorio Other Provider Fidel [facility] Elizabeth Samayoa Other Provider MD Ashley Cheatham Other Provider Debbie BONNER, Sandra A Primary Care Provider DO Debbie Sandra A Primary Care Provider MD zO Kincaid Attending Provider MD Jonas Ch Attending Provider DO Rl Villavicencio Emergency Provider DO Jluis Campos Admit Provider [phone] DO Jluis Campos Attending Provider Saranya Wright Other Provider Unavailable Fay, PhD Cash Other Provider DO Jelly Tuttle Other Provider MD John Murillo Other Provider [phone] DO Lit Clark Other Provider Dar, [facility] Dayana Other Provider DO Roque Isidro Other Provider NITZA Calvo Other Provider CHERYL Medina Other Provider Patrice THREAT MONITORING ANALYST-RESEARCH PROGRAM INTERN-C Jeanine E Other Provider MD Chaka Frye Attending Provider [phone] DO Rl Villavicencio Emergency Provider [phone] DO Jluis Campos Admit Provider Saranya Wright Other Provider Unavailable Fay, PhD Cash Other Provider [phone] DO Jelly Tuttle Other Provider MD John Murillo Other Provider DO Lit Clark Other Provider Dar [facility] Dayana Other Provider DO Roque Isidro Other Provider NITZA Calvo Other Provider CHERYL Medina Other Provider Patrice THREAT MONITORING ANALYSTRESEARCH PROGRAM INTERN-C Jeanine E Other Provider MD Chaka Frye Attending Provider [phone] NITZA Salinas Referring Provider Keita, DO Sandra A Primary Care Provider MD Jonas Ch Referring Provider MD Thuan Wise Attending Provider BARRIE Fritz Attending Provider Keita DO, Sandra Primary Care Provider Keita, DO Sandra A Primary Care Provider MD Oz Kincaid Attending Provider Keita DO, Sandra A Primary Care Provider Manjit Gleason MD Attending Provider Rl Villavicencio DO Emergency Provider Christo BURTON, Wesley Gutierrez Emergency Provider Jori Hearn DO Admit Provider Jori Hearn DO Attending Provider Priscilla Lang MD Attending Provider Lit Clark DO Other Provider Keita DO, Sandra A Primary Care Provider Keita DO, Sandra A Attending Provider Keita DO, Sandra A Primary Care Provider [phone] Thuan Wise MD Attending Provider Angelique Russell APRN Other Provider Nataliya Jane APRN Attending Provider Oz Kincaid MD Referring Provider [phone] KEITA, SANDRA A Primary Care Unavailable JONAS CH Attending Unavailable KEITA, SANDRA A Primary Care Unavailable JONAS CH Attending Unavailable KEITA, SANDRA A Primary Care Unavailable JONAS CH Referring Unavailable THUAN WISE Referring Unavailable KEITA, SANDRA A Primary Care Unavailable TRABOULSSI, MOURHAF Attending Unavailable KEITA, SANDRA A Primary Care Unavailable TRABOULSSI, MOURHAF Referring Unavailable TRABJOE GOTTIF Attending Unavailable TRABOULSSI, MOGAYHAF Referring Unavailable KEITA, SANDRA A Primary Care Unavailable TRABOULSSI, MOURHAF Attending Unavailable JONAS CH Referring Unavailable KEITA, SANDRA A Primary Care Unavailable Keita DO, Sandra A Primary Care Provider [phone] Rl Villavicencio DO Emergency Provider Wesley Villafuerte PA-C Emergency Provider Dhiraj DO, Jori Admit Provider Priscilla Lang MD Attending Provider Lit Clark DO Other Provider Keita DO, Sandra A Attending Provider Thuan Wise MD Attending Provider Angelique Russell APRN Other Provider Nataliya Jane APRN Attending Provider Oz Kincaid MD Referring Provider Deneen Frost PA-C Attending Provider [phone] Keita DO, Sandra A Primary Care Provider Keita DO, Sandra A Primary Care Provider [phone] Manjit Gleason MD Attending Provider [phone] Keita DO, Sandra A Primary Care Provider Keita DO, Sandra Primary Care Provider Keita DO, Sandra Primary Care Provider Monico VARGAS, Halie Doss Attending Unavailable Monico VARGAS, Halie Doss Attending Unavailable Keita DO, Sandra A Primary Care Provider [phone] Angelique Russell APRN Attending Provider [phone] Keita DO, Sandra A Attending Provider Edgar Eden DO Attending Provider [phone] Rosibel VARGAS, Manjit Other Provider Samm Medina MD Attending Provider Keita DO, Sandra A Referring Provider [phone] NO FAMILY, PHYSICIAN Primary Care Provider Unava ilable Karl Fritz DPM Attending Provider [phone] Keita, Sandra A Primary Care Unavailable Angelique Russell Consulting Unavailable Traboulssi, Mourhaf Attending Unavailable Traboulssi, Mourhaf Admitting Unavailable Lam, Karl Admitting Unavailable Karl Fritz Attending Unavailable Oz Kincaid Admitting Unavailable BeOz gutierrez Attending Unavailable Keita, Sandra A Primary Care Unavailable BeOz gutierrez Attending Unavailable Keita, Sandra A Primary Care Unavailable Tolu Salinas Referring Unavailable BeOz gutierrez Admitting Unavailable BeOz gutirerez Attending Unavailable Keita, Sandra A Primary Care Unavailable BeOz gutierrez Admitting Unavailable Keita, Sandra A Primary Care Unavailable Asaad, Imad Admitting Unavailable Asaad, Imad Attending Unavailable Keita, Sandra A Primary Care Unavailable Asaad, Imad Attending Unavailable Asaad, Imad Admitting Unavailable Keita, Sandra A Primary Care Unavailable Lit Clark Consulting Unavailab Jori Carvalho Admitting Unavailable Priscilla Lang Attending Unavailable Deneen Frost Attending Unavailable Deneen Frost Admitting Unavailable Keita, Sandra A Primary Care Unavailable Traboulssi, Mourhaf Admitting Unavailable Trabjamai, Moursuzif Attending Unavailable Reena Fritzandra Admitting Unavailable Karl Fritz Attending Unavailable Keita, Sandra A Primary Care Unavailable Keita, Sandra A Attending Unavailable Keita, Sandra A Admitting Unavailable Keita, Sandra A Primary Care Unavailable Rl Villavicencio Attending Unavailable Rl Villavicencio Admitting Unavailable Oz Kincaid Referring Unavailable Nataliya Jane Attending Unavail able Keita, Sandra A Primary Care Unavailable Nataliya Jane Admitting Unavail able Tray Nava Attending UnavailTray Luke Admitting Unavailvelasquez KeitaMagdalenarebecca Fernandez Primary Care Unavailable OZ KINCAID Attending Unavailable OZ KINCAID Attending Unavailable KARL FRITZ Attending Unavailable KARL FRITZ Attending Unavailable KARL FRITZ Attending Unavailable OZ KINCAID Attending Unavailable OZ KINCAID Referring Unavailable OZ KINCAID Attending Unavailable OZ KINCAID Attending Unavailable OZ KINCAID Referring Unavailable OZ KINCAID Attending Unavailable OZ KINCAID Referring Unavailable KARL FRITZ Attending Unavailable OZ KINCAID Attending Unavailable KARL FRITZ Attending Unavailable KARL FRITZ Attending Unavailable KARL FRITZ Attending Unavailable OZ KINCAID Attending Unavailable OZ KINCAID Attending Unavailable KARL FRITZ Attending Unavailable Allergies Allergy Classification Reported Allergen(s) Allergy Type Date of Onset Reaction(s) Facility (20 sources) Sulfamethoxazole ; 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: [sulfamethoxazol e] Drug Allergy 3 Unknown [facility] Repository (15 sources) Sulfonamides (Antibiotic); 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: [SULFA (SULFONAMIDE ANTIBIOTICS)] Allergy to substance 9 GI intolerance, Unknown, Nausea/vomiting [facility] (20 sources) Sulfonamides (Antibiotic) Drug [...] tablet (20 sources) Factor Xa Inhibitor Start: 07-08-2024 take 1 tablet by mouth twice daily Start: 09-14-2023 End: 10-10-2024 take 1 tablet by mouth twice daily Apixaban (Eliquis) 5 mg tablet Discontinued 5 MG PO Twice daily 180 December 03, 2023 1:05pm July 08, 2024 11:49am aspirin 81 mg delayed release oral tablet (20 sources) Platelet Aggregation Inhibitor, Nonsteroidal Anti-inflammatory Drug Start: 02-09-2021 take 1 tablet by mouth once daily take 1 tablet by mouth once jonah y Aspir-Low 81 MG 1 tablet Orally Once a day Active 24 hr buPROPion hydrochlorid e 150 mg extended release oral tablet (10 sources) Aminoketone Start: 09-16-2024 take 1 tablet by umer th once daily in the morning Start: 09-16-2024 take 1 tablet by umer th once daily in the morning Bupropion Hcl 150 mg tablet extended release 24 hr Active 0 .ROUTE .COMPLEX September 16, 2024 10:37am TAKE 1 TABLET BY MOUTH EVERY MORNING Start: 08-25-2024 End: 09-16-2024 take 1 tablet by mouth once daily in the morning Bupropion Hcl 150 mg tablet extended release 24 hr Discontinued 150 MG PO Every morning August 25, 2024 12:00am September 16, 2024 10:38am Start: 08-07-2021 take 1 tablet by umer th every twenty-four hours buPROPion HCl ER (XL) 300 MG 1 tablet in the morning Orally Once a day for 90 day(s) Jul, Active buPROPion HCl ER (XL) 150 MG take 1 tablet by mouth every morning for 3 days for 3 DCed Active carvedilol 12.5 mg oral tablet (20 sources) alpha-Adrenergic Debbie, beta-Adrenergic Debbie Start: 03-09-2024 End: 03-09-2025 take 1 tablet by mouth in the morning carvedilol (Coreg) 12.5 MG tablet Take 12.5 mg by mouth in the morning and 12.5 mg in the evening. Take with meals. 03/09/2024 03/09/2025 Active Continuous Blood Gluc Sensor (FreeStyle Brent 14 Day Sensor) misc (20 sources) Start: 12-21-2022 Continuous Blood Gluc Sensor (FreeStyle Brent 14 Day Sensor) mis apply 1 SENSOR as directed every 14 days use with DEVICE to MONIT... (REFER TO PRESCRIPTION NOTES). 12/21/2022 Active docusate sodium 100 mg oral capsule [...] 2023 4:43pm take 1 capsule by mo ut twice daily docusate sodium (Colace) 100 mg capsule Take 1 capsule (100 mg) by mouth 2 times a day. Active Stool Softener 1 00 MG 3 tablet as needed in the morning and 1 tablet in the evening Orally bid PRN Active donepezil hydrochloride 10 m g oral tablet (20 sources) Start: 02-25-2024 End: 07-21-2024 donepezil (Aricept) 10 MG tablet Indications: Cognitive decline 2 tabs QAM 60 tablet 5 07/21/2024 Active take 1 tablet by mouth twice hansel ly donepezil (Aricept) 10 mg tablet Take 1 tablet (10 mg) by mouth 2 times a day. 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 Do all this for 10 days. Take with a full glass of water and do not lie down for at least 30 minutes after. 20 tablet 11/16/2024 11/26/2024 Active Start: 02-06-2022 End: 01-07-2024 take 1 capsule by mouth once daily doxycycline (Vibramycin) 100 MG capsule take 1 capsule by mouth once daily for 10 days 02/06/2022 01/07/2024 Discontinued Easy Touch Lancing Device - (4 sources) Easy Touch Lancing Device - as directed Active empagliflozin 25 mg oral tablet (20 sources) Sodium-Glucose Cotransporter 2 Inhibitor Start: End: take 1 tablet by mouth once daily Flash Glucose Sensor (Freestyle Brent 14 Day Sensor) kit (20 sources) Start: Flash Glucose Sensor (Freestyle Brent 14 Day [...] Sensor) kit Discontinued 0 .ROUTE .MEDSUPPLY July 22, 2023 12:00am April 28, 2024 12:40pm As directed Change every 14 days Start: [...] 05-11-2024 take 1 tablet by mouth once da anne Start: 02-09-2021 End: 05-11-2024 take 1 tablet [...] prn Active furosemide 20 mg oral tablet (13 sources) Loop Diuretic Start: 05-07-2024 End: 05-07-2025 take 1 tablet by mouth every other day furosemide (Lasix) 20 mg tablet Indications: Shortness of breath , Edema, unspecified type Take 1 tablet (20 mg) by mouth every other day. 45 tablet 3 05/07/2024 05/07/2025 Active Start: 05-07-2024 1.5 ml insulin glargine 300 unt/ml pen injector (20 sources) Insulin Analog Start: 04-28-2024 inject 22 [IU] by subcutaneous injection once daily Start: 06-12-2023 End: 04-28-2024 inject 20 [IU] by subcutaneous injection once daily Insulin Glargine U-300 Conc (Toujeo Solostar U-300 Insulin) 300 unit/mL (1.5 mL) insulin pen Discontinued 20 UNIT SUBCUT Daily 9 November 14, 2023 4:09pm April 28, 2024 1:59pm Start: 12-12-2022 Toujeo SoloSta r 300 UNIT/ML [...] (titrate up to 30 units/day) Dec, Active 3 ml insulin lispro 100 unt/ml pen injector (20 sources) Insulin Analog Start: 12-23-2023 Insulin [...] bedtime October 09, 2022 11:00pm Start: 02-09-2021 End: 08-20-2024 HumaLOG KwikPen 100 UNIT/ML 1:50 corrective scale Subcutaneous ac tid Not-Taking Insulin Lispro 100 unit/mL insulin pen (20 sources) Start: 08-20-2024 Insulin Lispro 100 unit/mL insulin pen Active 0 SUBCUT Before meals and at bedtime August 20, 2024 12:03pm subcutaneously before meals and at bedtime; 1:40 corrective scale (expect up to 20 units/day) Start: 12-23-2023 End: 08-20-2024 Insulin Lispro 100 unit/mL i nsulin pen Discontinued 0 SUBCUT Before meals and at bedtime December 23, 2023 4:11pm August 20, 2024 12:04pm subcutaneously before meals and at bedtime; 1:50 corrective scale (expect up to 20 units/day) Start: 12-23-2023 Insulin Lispro 100 unit/mL insulin pen Active 0 SUBCUT Before meals and at bedtime December 23, 2023 4:11pm subcutaneously before meals and at bedtime; 1:50 corrective scale (expect up to 20 units/day) Start: 12-23-2023 Insulin Lispro 100 unit/mL insulin [...] Sat01/03/24 at 1745, For 1 dose, Subcutaneous L. acidophilus/Bifid. animal is (4 sources) Start: 08-25-2024 take 1 tablet by umer th once daily Start: 08-25-2024 take 1 tablet by umer th once daily L. acidophilus/Bifid. animalis Active 1 TAB PO Daily August 25, 2024 12:00am L. acidophilus/Bifid. animalis (Daily Probiotic) (1 source) Start: 08-25-2024 L. acidophilus /Bifid. animalis (Daily Probiotic) Active PO August 25, 2024 12:00am magnesium oxide 400 mg oral tablet (20 sources) Start: 01-29-2024 End: 09-02-2024 take 1 tablet by mouth twice daily Start: 01-29-2024 take 1 tablet by umer [...] 14, 2023 12:00am November 18, 2023 2:05pm memantine hydrochloride 10 mg oral tablet (20 sources) T-fkhbam-S-aspartate Receptor Antagonist Start: 07-21-2024 memantine (Namenda) 10 MG tablet Indications: Cognitive decline 1 tab BID 60 tablet 5 07/21/2024 Active Start: 04-28-2024 End: 07-03-2024 memantine (Namenda) 10 MG ta blet Indications: Cognitive decline 1 tab BID 60 tablet 5 07/21/2024 Active Start: 02-25-2024 End: 07-21-2024 memantine (Namenda) 10 MG ta blet Indications: Cognitive decline 1 tab every day x3-5 days then BID 60 tablet 3 02/25/2024 07/21/2024 Discontinued (Reorder) metFORMIN hydrochloride 500 mg oral tablet (20 sources) Biguanide Start: 08-26-2023 End: 08-20-2024 take 1 tablet by mouth twice daily at mealtime Start: 02-09-2021 End: 08-26-2023 metFORMIN (Glucophage) 500 [...] Orally Once a day Active Multivitamin tablet (15 sources) Start: 06-12-2023 take 1 tablet by mouth once da anne Start: 06-12-2023 take 1 tablet by umer th once daily Multivitamin tablet Active 1 TAB PO Daily June 12, 2023 9:10am Start: 06-12-2023 take 1 tablet by umer th once daily Multivitamin tablet Active 1 TAB PO Daily June 12, 2023 8:10am nortriptyline 25 mg oral capsule (20 sources) Tricyclic Antidepressant Start: 02-25-2024 End: 01-17-2025 take 1 capsule by mouth at bedtime nortriptyline (Pamelor) 25 MG capsule Indications: Neurogenic pain Take 1 capsule (25 mg) by mouth at bedtime 30 capsule 5 07/21/2024 01/17/2025 Active Start: 06-18-2023 End: 11-18-2023 take 100 mg by mouth once daily Nortriptyline Disconti nued 100 MG PO Daily 180 90 October 16, 2023 7:37am November 18, 2023 2:05pm Start: 01-04-2023 End: 02-25-2024 take 1 capsule by mouth once daily Nortriptyline 50 mg capsule Discontinued 50 MG PO Daily 90 90 November 18, 2023 2:01pm February 03, 2024 12:05pm Start: 01-04-2023 End: 12-16-2023 take 2 capsules [...] 18, 2023 8:10pm take 1 capsule by [facility] every twenty-four hours Nortriptyline HCl 50 MG 1 capsules Orally Once a day Active One Touch Ultra Mini Glucometer 1 meter [...] 12/10/2022 Active pen needle, diabetic (Sure-Fine Pen Marion) (20 sources) Start: 06-12-2023 pen needle, diabetic (Sure-Fine Pen Marion) Active .Route June 12, 2023 1:00am Start: 06-12-2023 pen needle, di abetic (Sure-Fine Pen Marion) Active .Route June 12, 2023 12:00am Start: 06-12-2023 pen needle, di abetic (Sure-Fine Pen Marion) Active .ROUTE June 12, 2023 12:00am pregabalin 300 mg oral dereku nikolai (20 sources) Start: 10-01-2024 take 2 capsules by m [facility] once daily at bedtime Start: 07-10-2024 End: 11-02-2024 take 1 capsule by mouth twice daily pregabalin (Lyrica) 300 MG capsule Indications: Neurogenic pain TAKE 1 CAPSULE BY MOUTH TWICE A DAY 60 capsule 3 11/02/2024 Active Start: 01-15-2024 End: 10-01-2024 take 1 capsule by mouth once daily Pregabalin 300 mg capsule Discontinued 300 MG PO Daily 90 90 July 03, 2024 1:03pm October 01, 2024 3:16pm Start: 01-15-2024 Pregabalin Act abdifatah MG PO January 15, 2024 12:00am Start: 01-07-2024 take 1 capsule by mo [facility] twice daily pregabalin (Lyrica) 300 MG capsule Indications: Neurogenic pain TAKE 1 CAPSULE BY MOUTH TWICE A DAY 60 capsule 3 01/07/2024 Active Start: 11-18-2023 End: 01-15-2024 take 1 capsule by mouth twice daily Pregabalin (Lyrica) 150 mg capsule Discontinued 150 MG PO Twice daily November 18, 2023 12:00am January 15, 2024 3:40pm Semaglutide (1 source) Start: 04-28-2024 inject 2 mg by subcutaneous injection every week semaglutide (Ozempic) 1 mg/dose (4 mg/3 mL) pen injector (5 sources) [...] 2 mg/dose (8 mg/3 mL) pen injector (14 sources) Start: 04-28-2024 inject 2 mg by subcutaneous injection every week Semaglutide (Ozempic) 2 mg/dose (8 mg/3 mL) pen injector Active 2 MG SUBCUT every week April 28, 2024 1:00am Start: 04-28-2024 inject 2 mg by subcu taneous injection every week Semaglutide (Ozempic) 2 mg/dose (8 mg/3 mL) pen injector Active 2 MG SUBCUT every week April 28, 2024 12:00am simvastatin 20 mg oral tablet (20 sources) HMG-CoA Reductase Inhibitor Start: 04-30-2024 End: 07-24-2024 take 2 tablets by mouth once daily Start: 12-04-2022 [facility] simvastatin (Zocor) 40 MG tablet Take 40 mg by mouth at bedtime 12/04/2022 Active Start: 02-09-2021 End: 05-22-2025 take 1 tablet by mouth once daily Simvastatin 20 mg Tablet Discontinued 20 MG PO Daily February 09, 2021 12:00am April 30, 2024 11:27am varenicline 1 mg oral tablet (20 sources) [...] Not-Taking Start: 10-12-2021 [facility] Varenicline Tartrate 1 MG 1 tablet after eating with a full glass of water Orally Twice a day for 30 days Sep, Not-Taking vitamin b12 2.5 mg oral tablet (20 sources) Vitamin B12 Start: 11-14-2023 cyanocobalamin (Vitamin B-12) 2500 MCG tablet 11/14/2023 Active Start: 11-14-2023 take 1 capsule by mo [facility] once daily Start: 02-09-2021 End: 12-17-2021 take 1 tablet [...] Scale 1 - 3 or fever December 13, 2021 12:00am December 17, 2021 5:59am Start: 12-13-2021 End: 12-17-2021 take 650 mg [...] Discontinued 200 MG PO Twice daily November 04, 2023 12:00am April 14, 2024 10:39am amoxicillin 875 mg / clavulanate 125 mg oral tablet (17 sources) Penicillin-class Antibacterial Start: 01-15-2024 End: 04-14-2024 Amoxicillin-Pot Clavulanate 875-125 mg tablet Discontinued TAB PO January 15, 2024 12:00am April 14, 2024 10:39am cefuroxime 500 mg oral tablet (20 sources) Cephalosporin Antibacterial Start: 04-30-2024 End: 08-20-2024 take 1 tablet by mouth twice daily Cefuroxime Axetil 500 mg tablet Discontinued 500 MG PO Twice daily 09 11April 30, 2024 1:00am August 20, 2024 10:10am Start: 12-13-2021 End: 10-10-2022 take 1 tablet by mouth twice daily Cefuroxime Axetil 500 mg tablet Discontinued 500 MG PO Twice daily 09 29December 13, 2021 12:00am October 10, 2022 12:16pm Start: 12-13-2021 take 500 mg by mouth twice daily Cefuroxime Axetil Active 500 MG PO Twice daily 6 December 13, 2021 12:00am Start: 12-13-2021 take 500 mg by mouth twice daily Cefuroxime Axetil Active 500 MG PO Twice daily 09 29December 13, 2021 12:00am cephalexin 500 mg oral capsule (8 sources) Cephalosporin Antibacterial Start: 07-10-2024 End: 07-22-2024 take 1 capsule by mouth every eight hours Cephalexin 500 mg capsule Discontinued 500 MG PO Every 8 hours July 10, 2024 12:00am July 22, 2024 11:18am cyclobenzaprine hydrochloride 10 mg oral tablet (20 sources) Muscle Relaxant Start: 05-15-2024 End: 07-21-2024 take 1-2 tablets by mouth at bedtime cyclobenzaprine (Flexeril) 10 MG tablet Indications: Cervical paraspinal muscle spasm , Lumbar paraspinal muscle spasm TAKE 1 TO 2 TABLETS BY MOUTH AT BEDTIME 60 tablet 3 05/15/2024 07/21/2024 Discontinued Start: 01-15-2024 Cyclobenzaprin e Active MG PO January 15, 2024 12:00am Start: 01-07-2024 End: 04-30-2024 Cyclobenzaprine 10 mg tablet Discontinued 10 MG PO As Directed as needed for muscle spasm January 15, 2024 12:00am April 30, 2024 11:27am dapagliflozin 10 mg oral tablet (4 sources) Sodium-Glucose Cotransporter 2 Inhibitor Start: 05-26-2020 take 1 tablet by mouth every twenty-four hours Farxiga 10 MG 1 tablet Orally Once a day for 30 day(s) Apr, Not-Taking flash glucose sensor (FreeStyle Brent 14 Day [...] 11:17am Insulin Lispro 100 unit/mL Insulin Pen (14 sources) Start: 10-10-2022 End: 06-12-2023 inject 1 [...] 09, 2022 11:00pm June 12, 2023 8:13am lidocaine 0.05 mg/mg topical ointment (20 sources) Antiarrhythmic, Amide Local Anesthetic Start: 04-28-2024 End: 08-20-2024 Lidocaine 5 % ointment Discontinued 1 APPLIC TOPICAL Daily as needed for pain April 28, 2024 1:00am August 20, 2024 10:11am Start: 01-30-2024 End: 01-29-2025 lidocaine (Xylocaine) 5 % oi ntment Indications: Ulcer of right foot, limited to breakdown of skin (CMS/HCC) Apply topically Daily Use as needed over the wound sites with dressing changes. 50 g 2 01/30/2024 07/21/2024 Discontinued Start: 01-03-2024 End: 01-03-2024 lidocaine (Xylocaine) 1 % in jection 6 mg Start: 01-03-2024 End: 01-03-2024 6 mg (0.6 mL), Injection, On , On Sat01/03/24 at 1745, For 1 dose, Added to dexamethasone or ketorolac for therapeutic injection. lisinopril 5 mg oral tablet (20 sources) [...] June 12, 2023 4:42pm Start: 06-12-2023 End: 06-12-2023 take 2.5 mg by mouth once daily Lisinopril Discontinue d 2.5 MG PO Daily June 12, 2023 9:09am June 12, 2023 4:42pm Start: 06-12-2023 End: 06-19-2023 take 1 tablet by mouth once daily Lisinopril 2.5 mg tablet Discontinued 2.5 MG PO Daily June 12, 2023 1:00am June 19, 2023 6:17pm Start: 12-04-2022 End: 04-28-2024 take 1 tablet by mouth once daily Lisinopril 5 mg tablet Discontinued 5 MG PO Daily September 09, 2023 12:00am September 09, 2023 9:36am Start: 02-09-2021 End: 06-12-2023 take 5 mg by mouth once daily Lisinopril 10 mg Tablet Discontinued 5 MG PO Daily February 09, 2021 12:00am June 12, 2023 9:13am Start: 02-09-2021 End: 06-12-2023 take 5 mg [...] Tablet Discontinued 10 MG PO Daily February 09, [...] 2023 6:17pm Start: 02-09-2021 End: 10-10-2022 take 1 tablet by mouth once daily Metoclopramide Hcl 10 mg Tablet Discontinued 10 MG PO Daily February 09, [...] Three times daily November 04, 2023 12:00am April 14, 2024 10:40am Start: 09-14-2023 End: 10-23-2024 take 1 tablet [...] Hr Discontinued 50 MG PO Daily September 14, 2023 12:00am November 04, 2023 1:04pm Miscellaneous Medical Supply misc (20 sources) Start: 11-26-2023 End: 04-28-2024 Miscellaneous Medical Supply misc Discontinued 0 .Route 1 November 26, 2023 2:24pm April 28, 2024 12:40pm Hospital Bed Start: 11-26-2023 End: 04-28-2024 Miscellaneous Medical Supply misc Discontinued 0 .Route 1 November 26, 2023 1:24pm April 28, 2024 11:40am Hospital Bed Start: 11-26-2023 End: 11-26-2023 Miscellaneous Medical Supply misc Discontinued 0 .Route 1 November 26, 2023 2:22pm November 26, 2023 2:25pm As directed Start: 11-26-2023 End: 11-26-2023 Miscellaneous Medical Supply misc Discontinued 0 .Route 1 November 26, 2023 1:22pm November 26, 2023 1:25pm As directed Start: 2023 End: 11-26-2023 Miscellaneous Medical Supply misc Discontinued 0 .Route 2023 2:20pm November 26, 2023 2:23pm As directed Start: 2023 End: 11-26-2023 Miscellaneous Medical Supply misc Discontinued 0 .Route 1 2023 1:20pm November 26, 2023 1:23pm As directed Start: 09-30-2023 End: 2023 Miscellaneous Medical Supply misc Discontinued 0 .Route 1 September 30, 2023 8:33am 2023 2:21pm As directed Start: 09-30-2023 End: 2023 Miscellaneous Medical Supply misc Discontinued 0 .Route 1 September 30, 2023 7:33am 2023 1:21pm As directed Start: 09-17-2023 End: 09-30-2023 Miscellaneous Medical Supply misc Discontinued 0 .Route September 17, 2023 12:00am September 30, 2023 8:33am As directed Start: 09-17-2023 End: 09-30-2023 Miscellaneous Medical Supply misc Discontinued 0 .Route September 16, 2023 11:00pm September 30, 2023 7:33am As directed Multivitamin Tablet (15 sources) Start: 02-09-2021 End: 06-12-2023 take 1 tablet by mouth twice daily Multivitamin Tablet Discontinued 1 TAB PO Twice daily February 09, 2021 12:00am June 12, 2023 9:13am Start: 02-09-2021 End: 06-12-2023 take 1 tablet by mouth twice daily Multivitamin Tablet Discontinued 1 TAB PO Twice daily February 08, 2021 11:00pm June 12, 2023 8:13am 24 hr nicotine 0.875 mg/hr transdermal system (12 sources) Cholinergic Nicotinic Agonist Start: 05-07-2024 End: 08-20-2024 apply 1 dose transdermal route every twenty-four hours Nicotine 21 mg/24 hr patch 24 hour Discontinued 1 PATCH TRANSDERML Daily May 07, 2024 1:00am August 20, 2024 10:11am omeprazole 20 mg delayed release oral capsule (20 sources) Proton Pump Inhibitor Start: 07-01-2023 End: 09-10-2024 take 1 capsule by mouth once daily Omeprazole 20 mg capsule,delayed release(DR/EC) Discontinued 0 .ROUTE .COMPLEX 90 January 06, 2024 12:36pm September 10, 2024 12:44pm take 1 capsule by mouth once daily Start: 01-02-2023 omeprazole (Pr iLOSEC) [address] capsule 01/02/2023 Active Start: 02-09-2021 End: 07-01-2023 take 1 tablet by mouth once daily Omeprazole 20 mg Tablet,Delayed Release (Dr/Ec) Discontinued 20 MG PO Daily February 09, 2021 12:00am July 01, 2023 9:09am pioglitazone 15 mg oral tablet (20 sources) Peroxisome Proliferator Receptor alpha Agonist, Peroxisome Proliferator Receptor gamma Agonist, Thiazolidinedione Start: 02-09-2021 End: 07-21-2024 take 1 tablet by mouth once daily Pioglitazone 15 mg Tablet Discontinued 15 MG PO Daily February 09, 2021 12:00am April 28, 2024 1:57pm 0.25 mg, 0.5 mg dose 1.5 ml semaglutide 1.34 mg/ml pen injector (20 sources) Start: 02-09-2021 End: 04-28-2024 Semaglutide (Ozempic) 0.25 mg or 0.5 mg(2 mg/1.5 mL) Pen Injector Discontinued 1 MG SUBCUT every week February 09, 2021 12:00am April 28, 2024 12:39pm Saturday Start: 02-09-2021 Semaglutide (O zempic) 0.25 mg or 0.5 mg(2 mg/1.5 mL) Pen Injector Active 0.5 MG SUBCUT every week February 09, 2021 12:00am Saturday Ozempic (0.25 or 0.5 MG/DOSE) 2 MG/1.5ML inject 0.5 milligrams subcutaneously every week for 84 Active Semaglutide (15 sources) Start: 04-28-2024 End: 04-28-2024 inject 1 mg by subcutaneous injection every week Semaglutide (Ozempic) 1 mg/dose (4 mg/3 mL) pen injector Discontinued 1 MG SUBCUT every week April 28, 2024 1:00am April 28, 2024 1:57pm Start: 04-28-2024 End: 04-28-2024 inject 1 mg by subcutaneous injection every week Semaglutide (Ozempic) 1 mg/dose (4 mg/3 mL) pen injector Discontinued 1 MG SUBCUT every week April 28, 2024 12:00am April 28, 2024 12:57pm temazepam 30 mg oral capsule (20 sources) Benzodiazepine Start: 10-10-2022 End: 07-21-2024 take 1 capsule by mouth once daily Temazepam 30 mg capsule Discontinued 30 MG PO Daily September 17, 2023 1:56pm November 08, 2023 4:43pm Start: 08-09-2022 take 1 capsule by [facility] every twenty-four hours Temazepam 30 MG 1 capsule at bedtime as needed Orally Once a day for 30 days 13 Apr, 2023 Active Start: 07-04-2022 take 1 capsule by [...] pain; 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: [Unspecified abdominal pain] 12-17-2021 Episodic Acquired foot deformities (2 sources) Deformity of toe; 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: [Acquired deformities of toe(s), unspecified, right foot] 11-16-2024 Episodic Administrative/social admission (20 sources) Dietary counseling and surveillance; 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: [Tobacco abuse counseling] Onset: 03-27-2021 Resolved: 01-09-2022 Episodic Biliary tract disease (20 sources) Biliary calculus; 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: [Calculus of gallbladder without cholecystitis without obstruction] 12-11-2021 Episodic Cardiac dysrhythmias (20 sources) Atrial flutter; 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: [Unspecified atrial flutter] Onset: 10-07-2023 09-12-2023 Chronic Cardiac dysrhythmias (20 sources) Tachycardia; 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: [Tachycardia, unspecified] 09-12-2023 Episodic Chronic kidney disease (20 sources) Chronic kidney disease stage 2; 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: [Chronic kidney disease, stage 2 (mild)] 06-12-2023 Chronic Chronic ulcer of skin (20 sources) Non-pressure chronic ulcer of other part of right foot limited to breakdown of skin; 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: [Ulcer of other part of foot] Onset: 01-07-2024 01-28-2024 Chronic Coma; stupor; and brain damage (2 sources) Daytime somnolence; 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: [Somnolence] 10-01-2024 Episodic Complications of surgical procedures or medical care (4 sources) Complication of ventilation therapy 10-01-2024 Episodic Congestive heart failure; nonhypertensive (4 sources) Congestive heart failure; 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: [Heart failure, unspecified] 10-01-2024 Chronic Coronary atherosclerosis and other heart disease (1 [...] sources) Fatigue; 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: [Chronic fatigue, unspecified] Chronic Miscellaneous mental health disorders (20 sources) Primary insomnia; 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: [Primary insomnia] Chronic Mood disorders (10 sources) Major depressive disorder; 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: [Major depressive disorder, single episode, unspecified] 08-25-2024 Chronic Nonspecific chest pain (20 sources) Chest pain; 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: [Chest pain, unspecified] 09-12-2023 Episodic Nutritional deficiencies (20 sources) Vitamin D deficiency; 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: [Vitamin D deficiency, unspecified] Chronic Open wounds of extremities (15 sources) Injury of foot; 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: [Unspecified open wound, unspecified foot, initial encounter] 02-03-2024 Episodic Other acquired deformities (2 sources) Unspecified acquired deformity of right lower leg; 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: [Unspecified deformity of ankle and foot, acquired] 10-26-2024 Episodic Other aftercare (20 sources) Long-term current use of insulin; 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: [FDC (current) use of insulin] 06-12-2023 Episodic Other aftercare (12 sources) FDC (current) use of insulin; 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: [Long-term (current) use of insulin] Onset: 03-27-2021 Resolved: 01-09-2022 Episodic Other aftercare (20 sources) Post-discharge follow-up; 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: [Encounter for follow-up examination after completed treatment for conditions other than malignant neoplasm] 09-24-2023 Episodic Other aftercare (17 sources) Encounter for follow-up examination after completed treatment for conditions other than malignant neoplasm; 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: [Other follow-up examination] 09-17-2023 Episodic Other circulatory disease (11 sources) Low blood pressure; 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: [Hypotension, unspecified] 05-07-2024 Episodic Other circulatory disease (7 sources) Hypotension, unspecified; 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: [Hypotension, unspecified] Onset: 09-25-2023 05-07-2024 Episodic Other connective tissue disease (18 sources) Other symptoms and signs involving the musculoskeletal system; 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: [Other musculoskeletal symptoms referable to limbs] Onset: 10-06-2024 10-06-2024 Episodic Other connective tissue disease (4 sources) Pain in left lower limb; 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: [Pain in left leg] 10-06-2024 Episodic Other connective tissue disease (4 sources) Pain in right lower limb; 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: [Pain in right leg] 10-06-2024 Episodic Other gastrointestinal disorders (20 sources) Dysphagia; 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: [Dysphagia, unspecified] 06-18-2023 Episodic Other gastrointestinal disorders (15 sources) Stricture of esophagus; 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: [Personal history of other diseases of the digestive system] Episodic Other gastrointestinal disorders (5 sources) Dysphagia, unspecified; 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: [Dysphagia, unspecified] Onset: 09-10-2024 Episodic Other gastrointestinal disorders (11 sources) Incontinence of feces; 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: [Full incontinence of feces] 05-07-2024 Episodic Other gastrointestinal disorders (5 sources) Full incontinence of feces; 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: [Full incontinence of feces] 05-07-2024 Episodic Other hematologic conditions (16 sources) Secondary polycythemia; 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] 04-28-2024 Episodic Other injuries and conditions due to external causes (9 sources) Unspecified injury of left foot, initial encounter; Translations: [Injury of foot, left] Episodic Other nervous system disorders (20 sources) Peripheral nerve disease ; Translations: [Polyneuropathy, unspecified] 06-12-2023 Chronic Other nervous system disorders (20 sources) Polyneuropathy, unspecified; Translations: [Unspecified hereditary and idiopathic peripheral neuropathy] Onset: 03-27-2021 Resolved: 01-09-2022 Chronic Other nervous system disorders (20 sources) Walking disability; Translations: [Difficulty in walking, not elsewhere classified] 11-10-2023 Chronic Other nervous system disorders (12 sources) Difficulty in walking, not elsewhere classified; Translations: [Difficulty in walking] 11-10-2023 Chronic Other nervous system disorders (20 [...] 12-13-2023 12-13-2023 Chronic Other nervous system disorders (4 sources) Numbness; Translations: [Anesthesia of skin] 10-06-2024 Episodic Other nutritional; endocrine; and metabolic disorders [...] and metabolic disorders (20 sources) Hypomagnesemia; Translations: [Hypomagnesemia] 11-10-2023 Chronic Other nutritional; endocrine; and metabolic disorders (20 sources) Hypomagnesemia; Translations: [Disorders of magnesium metabolism] Onset: 12-02-2023 11-10-2023 Chronic Other nutritional; endocrine; and metabolic disorders (16 sources) Body mass index (BMI) 32.0-32.9, adult; [...] adult] Onset: 10-07-2023 Resolved: 12-16-2023 06-12-2023 Episodic Other screening for suspected conditions (not mental disorders or infectious disease) (20 sources) Thyroid function tests abnormal; Translations: [Other specified abnormal findings of blood chemistry] 11-14-2023 Episodic Other skin disorders (5 sources) Lesion of skin of face; Translations: [Disorder of the skin and subcutaneous tissue, unspecified] 08-25-2024 Episodic Other skin disorders (3 sources) Disorder of the skin and subcutaneous tissue, unspecified; Translations: [Unspecified disorder of skin and subcutaneous tissue] 08-25-2024 Episodic Ailyn-; endo-; and myocarditis; cardiomyopathy (except that caused by tuberculosis or sexually transmitted disease) (20 sources) Cardiomyopathy; Translations: [Cardiomyopathy, unspecified] Onset: 10-07-2023 09-14-2023 Chronic Peripheral and visceral atherosclerosis (20 sources) Peripheral vascular disease, unspecified; Translations: [Peripheral vascular disease] Onset: 01-25-2017 Resolved: 02-27-2021 Chronic Residual codes; unclassified (20 sources) Sleep apnea; Translations: [Sleep apnea, unspecified] Chronic Residual codes; unclassified (1 source) Sleep apnea, unspecified Onset: 07-03-2021 Resolved: 07-03-2021 Chronic Residual codes; unclassified (1 source) Obstructive sleep apnea (adult) (pediatric); Translations: [Obstructive sleep apnea (adult)(pediatric)] 10-01-2024 Chronic Residual codes; unclassified (20 sources) Insomnia; Translations: [Insomnia, unspecified] Episodic Residual codes; unclassified (1 source) Asymptomatic menopausal state Episodic Residual codes; unclassified (11 sources) Sleep disorder; Translations: [Sleep disorder, unspecified] 05-07-2024 Episodic Residual codes; unclassified (5 sources) Sleep disorder, unspecified; Translations: [Sleep disturbance, unspecified] 05-07-2024 Episodic Residual codes; unclassified (2 sources) At increased risk of emergency hospital admission; Translations: [Other specified personal risk factors, not elsewhere classified] 11-23-2024 Episodic Skin and subcutaneous tissue infections (7 sources) Cellulitis of right foot; Translations: [Cellulitis of right lower limb] Onset: 01-07-2024 01-07-2024 Episodic Spondylosis; intervertebral disc disorders; other back problems (6 sources) Lumbar spondylosis; Translations: [Spondylosis without myelopathy or radiculopathy, lumbar region] 09-07-2024 Chronic Substance-related disorders (20 sources) Smoker; Translations: [Nicotine dependence, unspecified, uncomplicated] Onset: 09-17-2023 Chronic Superficial injury; contusion (8 sources) Blister of foot; Translations: [Blister (nonthermal), right foot, subsequent encounter] 01-28-2024 Episodic Thyroid disorders (20 sources) Hypothyroidism; Translations: [Hypothyroidism, unspecified] Onset: 04-28-2024 11-10-2023 Chronic Transient cerebral ischemia (20 sources) Transient cerebral ischemia; Translations: [Transient cerebral [...] / F17.200(ICD-10) Onset: 05-16-2017 Unclassified (1 source) ad terminal makeup operator (current) use of aspirin / Z79.82(ICD-10) Onset: 05-16-2017 Unclassified (1 source) FDC (current) use of oral hypoglycemic drugs / Z79.84(ICD-10) Onset: 05-16-2017 Unclassified (2 sources) EKG Visit Onset: 12-02-2023 Unclassified (2 sources) Bilateral leg weakness 10-06-2024 Urinary tract infections (20 sources) Emphysematous cystitis; Translations: [Other cystitis without hematuria] 12-09-2021 Episodic Past or Other Problems Problem Classification Problem Date Documented Date Episodic/Chronic Conditions associated with dizziness or vertigo (20 sources) Dizziness; Translations: [Dizziness and giddiness] Onset: 04-27-2024 06-19-2023 Episodic E Codes: Adverse effects of medical drugs [...] 11-29-2023 Episodic Malaise and fatigue (20 sources) Asthenia; Translations: [Weakness] Onset: 04-28-2024 11-10-2023 Episodic Nutritional deficiencies (20 sources) Deficiency of other specified B group vitamins; Translations: [Cobalamin deficiency] Onset: 03-27-2021 Resolved: 01-09-2022 Episodic Other aftercare (6 sources) Taking high risk medication; Translations: [Other senior care (current) drug therapy] Onset: 11-13-2023 11-13-2023 Episodic Other aftercare (2 sources) Other vermin exterminator (current) drug therapy; Translations: [Other senior care (current) drug therapy] Onset: 11-13-2023 Episodic Other [...] in right foot] Onset: 01-06-2024 Episodic Other hematologic conditions (15 sources) Secondary polycythemia; 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, secondary] Onset: 06-26-2024 04-14-2024 Episodic Other nervous system disorders (20 sources) Impaired cognition; Translations: [Other symptoms and signs involving cognitive functions and awareness] Onset: 02-25-2024 02-25-2024 Episodic Other nutritional; endocrine; and metabolic disorders (20 sources) Body mass index (BMI) 28.0-28.9, adult; Translations: [Body Mass Index 28.0-28.9, adult] Onset: 01-09-2022 Resolved: 01-09-2022 Episodic Other skin disorders (1 source) Corns and callosities Onset: 07-10-2021 Resolved: 07-10-2021 Episodic Residual codes; unclassified (20 sources) Obstructive sleep apnea syndrome; Translations: [Obstructive sleep apnea (adult) (pediatric)] Onset: 10-29-2023 Resolved: 10-29-2023 10-29-2023 Chronic Residual codes; unclassified (1 source) Insomnia, unspecified Onset: 05-08-2021 Resolved: 05-08-2021 Episodic Spondylosis; intervertebral disc disorders; other back problems (20 sources) Spasm of muscle of lower back; Translations: [Muscle spasm of back] Onset: 10-29-2023 10-29-2023 Episodic Unclassified (1 source) Dermatochalasis of left upper eyelid; Translations: [Dermatochalasis of left upper eyelid] Onset: 05-16-2017 Unclassified (5 sources) Onset: 10-07-2023 Resolved: 06-26-2024 10-07-2023 Results Test Name Value Interpretation Reference Range Facility Superficial Wound Cultureon 11-16-2024 Superficial Wound Culture ORGANISM: Klebsiella oxytoca (O:KLEOXY) Quantity of Growth Moderate Growth ORGANISM: Staphylococcus aureus (O:STAAUR) Quantity of Growth Heavy Growth Aerobic FAMILIA Charge (NMIC56) - SUSCEPTIBILITY ORGANISM: O:KLEOXY ANTIBIOTIC INTERPRETATION FAMILIA Amikacin S <16 Amoxacillin/K Clavulanate S <8 Ampicillin/Sulbactam S 88/4 Aztreonam S <4 Cefazolin R >16 Cefepime S <2 Ceftazidime S <1 Ceftazidime/Avibactam S <4 Ceftolozane/Tazobactam S <2 Ceftriaxone S <1 Cefuroxime S 8 Ciprofloxacin S <0.25 Ertapenem S <0.5 Gentamicin S <2 Levofloxacin S <0.5 Meropenem S <1 Meropenem/Vaborbactam S <2 Piperacillin/Tazobactam S <8 Tetracycline S <4 Tigecycline S <2 Tobramycin S <2 Trimethoprim/Sulfamethox azole S <0.5 Aerobic FAMILIA Charge (PCMIC38) - SUSCEPTIBILITY ORGANISM: O:STAAUR ANTIBIOTIC INTERPRETATION FAMILIA Azithromycin S <2 Ceftaroline S <0.5 Ciprofloxacin S <1 Clindamycin S 0.5 Daptomycin S 1 Levofloxacin S <1 Linezolid S 2 Oxacillin S <0.25 Penicillin R >2 Tetracycline S <4 Trimethoprim/Sulfamethox azole S <0.5 Vancomycin S 1 S = SUSCEPTIBLE I = INTERMEDIATE R = RESISTANT BLANK = DATA NOT AVAILABLE, OR DRUG NOT ADVISABLE OR TESTED R* = RESISTANCE DUE TO EXTENDED SPECTRUM BETA-LACTAMASES ESBL = EXTENDED SPECTRUM BETA-LACTAMASE TFG = THYMIDINE-DEPENDENT STRAIN KYLIE = BETA-LACTAMASE POSITIVE IB = INDUCIBLE BETA-LACTAMASE. APPEARS IN PLACE OF 'S' WITH SPECIES KNOWN TO POSSESS INDUCIBLE BETA-LACTAMASES. POTENTIALLY THEY MAY BECOME RESISTANT TO ALL B-LACTAM DRUGS. PERFORMED BY: [facility] [address] [place] [address] PATHOLOGIST ENGINEERING TEAM SUPERVISOR BENNIE HIGGINBOTHAM M.D. Normal [facility] Comment on above: Performed By: #### P ATH SLIDE REV, CMP, LDH, CBC #### [facility] [address] [id number] [facility] XR Foot - right 3 [facility] Result: Three views of the right [...] sesamoids and metatarsal head right 1st metatarsal. [facility] Radiology Study observation (narrative) [facility] Capillary blood glucose steve urement by glucometer (mass/volume)Ordered By: Manjit Gleason on 09-10-2024 Glucose [Mass/Vol] 234 mg/dL Normal [facility] Comment on above: Random Glucose Refer ence Range is dependent on time and content of last meal. Glucose of more than 200 mg/dL in a nonstressed, ambulatory subject supports the diagnosis of Diabetes Mellitus. Result Comment: [facility] Glucose Reference Range is dependent on time and content of last meal. Glucose of more than 200 mg/dL in a nonstressed, ambulatory subject supports the diagnosis of Diabetes Mellitus. Performed By: #### P ATH SLIDE REV, CMP, LDH, CBC #### [facility] [address] [id number] [place] Glucose Glucometer (BldC) [M ass/Vol]Ordered By: Manjit Gleason on 09-10-2024 Glucose [Mass/Vol] Capillary blood gluc ose measurement by glucometer (mass/volume) [facility] Comment on above: Random Glucose Refer ence Range is dependent on time and content of last meal. Glucose of more than 200 mg/dL in a nonstressed, ambulatory subject supports the diagnosis of Diabetes Mellitus. Glucose Poct Glucometerson 0 09-10-2024 Commemt1 Glu2: Cleaned Meter Normal [facility] Comment on above: Result Comment: PERF ORMED BY: [facility] [address] [place] [place] [address] PATHOLOGIST ENGINEERING TEAM SUPERVISOR LE MACE M.D. Performed By: #### P ATH SLIDE REV, CMP, LDH, CBC #### [facility] [address] No Panel InformationOrdered By: Manjit Gleason on 09-10-2024 Miscellaneous Pathology Test See comment [facility] Comment on above: See report. Scanned copy available in EMR. Bedside Glucose Comment Glu2: cleaned meter [facility] Pathology Request for Lab Co rpon 09-10-2024 Pathology Request for Lab Rory Normal [facility] Comment on above: Order Comment: GI SP ECIMEN Result Comment: See report. Scanned copy available in EMR. PERFORMED BY: [place] [address] PATHOLOGIST ENGINEERING TEAM SUPERVISOR LE MACE M.D. Performed By: #### P ATH TO [facility] #### [address] HbA1c HPLC (Bld) [Mass fract ion]on 08-20-2024 HbA1c (Bld) [Mass fraction] Hemoglobin A1c/Hemoglobin.total in Blood by HPLC [facility] HbA1c (Bld) [Mass fraction] 8.8 % [facility] No Panel Informationon 08-20 Bedside Glucose 269 [facility] US ankle/arm indiceson 07-23 US ankle/arm indices [facility] [address] [place] [address] Ultrasound Report Signed Patient: Taye Gay MR#: [id number] 19 : 1955 Acct:[id number] Age/Sex: 68 / F ADM Date: 07/22/24 Loc: [facility] Room: Type: [facility] Attending Dr: Tray Nava MD Ordering Provider: Tray Nava MD Date of Service: 07/22/24 US/US ankle/arm indices: I73.9 - Peripheral vascular disease, unspecified Copies to: Tray Nava MD LOWER EXTREMITY SEGMENTAL ARTERIAL DOPSCAN (PVR) INDICATION: Follow-up peripheral vascular occlusive disease with bilateral leg pain PROCEDURE: Right arm blood pressure is 135 , left is 130 . Pressures at the right ankle are 164 using the posterior tibial artery, and 125 using the dorsalis pedis artery with ankle-brachial index of 1.21 0.93 . Pressures at the left ankle are 142 using the posterior tibial artery, and 118 with ankle-brachial index of 1.05 0.87 . Wave forms by plethysmography are normal US/US ankle/arm indices IMPRESSION: NO HEMODYNAMICALLY SIGNIFICANT PERIPHERAL VASCULAR OCCLUSIVE DISEASE AT REST IN EITHER LOWER EXTREMITY. Impression dictated by: Eugenio Rob M.D.07/23/2024 9:21 AM [facility]: Carmelita Horowitz Transcribed By: AMY 07/23/24920 Dictated By: Eugenio Rob MD 07/23/24919 Signed By: 07/23/24920 Normal [facility] Urine Cultureon 07-06-2024 Bacteria identified Cx Nom (U) ORGANISM: Klebsiella oxytoca (O:KLEOXY) [place] Count >100,000 Aerobic FAMILIA Charge (NMIC56) - SUSCEPTIBILITY ORGANISM: O:KLEOXY ANTIBIOTIC INTERPRETATION FAMILIA Amikacin S <16 Amoxacillin/K Clavulanate S <8 Ampicillin/Sulbactam S <4 Aztreonam S <4 Cefazolin S 8 Cefepime S <2 Ceftazidime S <1 Ceftazidime/Avibactam S <4 Ceftolozane/Tazobactam S <2 Ceftriaxone S <1 Cefuroxime S <4 Ciprofloxacin S <0.25 Ertapenem S <0.5 Gentamicin S <2 Levofloxacin S <0.5 Meropenem S <1 Meropenem/Vaborbactam S <2 Nitrofurantoin S <32 Piperacillin/Tazobactam S <8 Tetracycline S <4 Tigecycline S <2 Tobramycin S <2 Trimethoprim/Sulfamethox azole S 03/17 S = SUSCEPTIBLE I = INTERMEDIATE R = RESISTANT BLANK = DATA NOT AVAILABLE, OR DRUG NOT ADVISABLE OR TESTED R* = RESISTANCE DUE TO EXTENDED SPECTRUM BETA-LACTAMASES ESBL = EXTENDED SPECTRUM BETA-LACTAMASE TFG = THYMIDINE-DEPENDENT STRAIN KYLIE = BETA-LACTAMASE POSITIVE IB = INDUCIBLE BETA-LACTAMASE. APPEARS IN PLACE OF 'S' WITH SPECIES KNOWN TO POSSESS INDUCIBLE BETA-LACTAMASES. POTENTIALLY THEY MAY BECOME RESISTANT TO ALL B-LACTAM DRUGS. PERFORMED BY: [place] [address] PATHOLOGIST ENGINEERING TEAM SUPERVISOR LE MACE M.D. Normal [facility] Comment on above: Performed By: #### P ATH SLIDE REV, CMP, LDH, CBC #### [address] Urine cultureOrdered By: Columba Frost on 07-06-2024 Bacteria identified Cx Nom (U) Abnormal [facility] Alanine aminotransferase [En zymatic activity/volume] in Serum or PlasmaOrdered By: Tondra Mapus on 06-26-2024 ALT [Catalytic activity/Vol] Alanine aminotransferase [Enzymatic activity/volume] in Serum or Plasma 7-52 [facility] Albumin [Mass/volume] in Ser um or Plasma by Bromocresol green (BCG) dye binding methoOrdered By: Tondra Mapus on 06-26-2024 Albumin BCG dye [Mass/Vol] Albumin [Mass/volume] in Serum or Plasma by Bromocresol green (BCG) dye binding metho 3.5-5.7 [facility] Alkaline phosphatase [Enzyma tic activity/volume] in Serum or PlasmaOrdered By: Tondra Mapus on 06-26-2024 ALP [Catalytic activity/Vol] Alkaline phosphatase [Enzymatic activity/volume] in Serum or Plasma 34-104 [facility] Aspartate aminotransferase [ Enzymatic activity/volume] in Serum or PlasmaOrdered By: Tondra Mapus on 06-26-2024 AST [Catalytic activity/Vol] Aspartate aminotransferase [Enzymatic activity/volume] in Serum or Plasma 13-39 [facility] B-Type Natriuretic Peptideon 06-26-2024 Natriuretic peptide B (Bld) [Mass/Vol] 54.0 pg/mL Normal 5-100 [facility] Comment on above: Result Comment: PERF ORMED BY: [place] [address] PATHOLOGIST ENGINEERING TEAM SUPERVISOR LE MACE M.D. Performed By: #### P ATH SLIDE REV, CMP, LDH, CBC #### [facility] [address] BCR-ABL Neogenomicon 025 BCR-ABL Neogenomic Normal [facility] Comment on above: Result Comment: See report. Scanned copy available in EMR. PERFORMED BY: [facility] [address] [place] [address] PATHOLOGIST ENGINEERING TEAM SUPERVISOR LE MACE M.D. Performed By: #### P ATH SLIDE REV, CMP, LDH, CBC #### [facility] [address] Basophils Auto (Bld) [#/Vol] Ordered By: Nataliya Jane on 06-26-2024 Basophils (Bld) [#/Vol] Automated basophil count 0.0-0.2 [facility] Basophils/100 WBC Auto (Bld) Ordered By: Nataliya Jane on 06-26-2024 Basophils/100 WBC (Bld) Automated basophil % . [facility] Bilirubin.total [Mass/volume ] in Serum or PlasmaOrdered By: Angelique Russell on 06-26-2024 Bilirubin [Mass/Vol] Bilirubin.total [Mass/volume] in Serum or Plasma 0.3-1.0 [facility] CBC W Auto Differential pane l (Bld)on 06-26-2024 Basophils (Bld) [#/Vol] 0 10*3/uL 0.0 - 0.2 10*3/uL [facility] Basophils/100 WBC Manual cnt (Syn fld) 0.5 % . [facility] Eosinophils (Bld) [#/Vol] 0.2 10*3/uL 0.0 - 0.45 10*3/uL [facility] Eosinophils/100 WBC Manual cnt (Syn fld) 2.7 % . [facility] Erythrocyte distribution width (RBC) [Ratio] 14.6 % 11.9 - 15.3 % [facility] Hematocrit (Bld) [Volume fraction] 46.4 % 34.0 - 46.4 % [facility] Hemoglobin (Bld) [Mass/Vol] 15.8 g/dL High 11.8 - 15.4 g/dL [facility] Interpretation and review of laboratory results Abnormal [facility] Lymphocytes (Bld) [#/Vol] 1.6 10*3/uL 1.00 - 4.8 10*3/uL [facility] Lymphocytes/100 WBC Manual cnt (Syn fld) 23.1 % . [facility] MCH (RBC) [Entitic mass] 32.6 pg 24.7 - 34.3 pg [facility] MCHC (RBC) [Mass/Vol] 34.2 g/dL 32.0 - 35.0 g/dL [facility] MCV (RBC) [Entitic vol] 95.3 fL 80 - 100 fL [facility] Monocytes (Bld) [#/Vol] 0.5 10*3/uL 0.0 - 0.8 10*3/uL [facility] Monocytes+Macrophages/1 00 WBC Manual cnt (Syn fld) 6.6 % . [facility] Neutrophils (Bld) [#/Vol] 4.6 10*3/uL 1.8 - 7.7 10*3/uL [facility] Neutrophils/100 WBC Manual cnt (Syn fld) 67.1 % . [facility] NRBC 0.1 /100{WBC} 0 - 0.5 /100{WBC} [facility] Platelet mean volume (Bld) [Entitic vol] 10.4 fL 6.3 - 10.7 fL [facility] Platelets (Bld) [#/Vol] 120 10*3/uL Low 150 - 450 10*3/uL [facility] RBC LM.HPF (Urine sed) [#/Area] 4.86 10*6/uL 3.60 - 5.00 10*6/uL [facility] WBC (Bld) [#/Vol] 6.9 10*3/uL 3.8 - 11.6 10*3/uL [facility] WBC LM.HPF (Urine sed) [#/Area] 6.9 10*3/uL 3.8 - 11.6 10*3/uL [facility] Calcium [Mass/volume] in Ser um or PlasmaOrdered By: Angelique Russell on 06-26-2024 Calcium [Mass/Vol] Calcium [Mass/volume ] in Serum or Plasma 8.6-10.3 [facility] Carbon dioxide, total [Moles /volume] in Serum or PlasmaOrdered By: Angelique Russell on 06-26-2024 CO2 [Moles/Vol] Carbon dioxide, tota l [Moles/volume] in Serum or Plasma 21.0-31.0 [facility] Chloride [Moles/volume] in S elliot or PlasmaOrdered By: Angelique Russell on 06-26-2024 Chloride [Moles/Vol] Chloride [Moles/vol ume] in Serum or Plasma 98-107 [facility] Cholesterol [Mass/volume] in Serum or PlasmaOrdered By: Angelique Russell on 06-26-2024 Cholesterol [Mass/Vol] Cholesterol [Mass/volume] in Serum or Plasma Low 140-200 [facility] Comment on above: Chol less than 200 m g/dl low riskChol 201-239 mg/dl borderline riskChol 240 mg/dl and greater high risk Cholesterol in HDL [Mass/vol ume] in Serum or PlasmaOrdered By: Angelique Russell on 06-26-2024 Cholesterol in HDL [Mass/Vol] Serum or plasma high density lipoprotein (HDL) cholesterol measurement 23-92 [facility] Comment on above: HDL CHOL ATP-III CLA SSIFICATION Cardiovascular RiskHDL > or equal to 60 mg/dL LOWHDL < 40 mg/dL HIGH Cholesterol in LDL Calc [Mas s/Vol]Ordered By: Angelique Russell on 06-26-2024 Cholesterol in LDL [Mass/Vol] Cholesterol in LDL [Mass/volume] in Serum or Plasma by calculation 0-100 [facility] Comment on above: LDL ATP III CLASSIFI CATIONLDL less than 100 mg/dL OptimalLDL 100-129 mg/dL Near or above optimalLDL 130-159 mg/dL Borderline highLDL 160-189 mg/dL HighLDL greater than 189 mg/dL Very high Cholesterol in VLDL Calc [Ma ss/Vol]Ordered By: Angelique Russell on 06-26-2024 Cholesterol in VLDL [Mass/Vol] Cholesterol in VLDL [Mass/volume] in Serum or Plasma by calculation [facility] Complete Blood Count Auto Di ffon 06-26-2024 Basophils (Bld) [#/Vol] 0.0 10*3/uL Normal 0.0-0.2 [facility] Comment on above: Result Comment: PERF ORMED BY: [place] [address] PATHOLOGIST ENGINEERING TEAM SUPERVISOR LE MACE M.D. Performed By: #### C BC #### [address] Basophils/100 WBC (Bld) 0.5 % Normal . [facility] Comment on above: Performed By: #### C BC #### [address] Eosinophils (Bld) [#/Vol] 0.2 10*3/uL Normal 0.0-0.45 [facility] Comment on above: Performed By: #### C BC #### [address] Eosinophils/100 WBC (Bld) 2.7 % Normal . [facility] Comment on above: Performed By: #### C BC #### [address] Erythrocyte distribution width (RBC) [Ratio] 14.6 % Normal 11.9-15.3 [facility] Comment on above: Performed By: #### C BC #### [address] Hematocrit (Bld) [Volume fraction] 46.4 % Normal 34.0-46.4 [facility] Comment on above: Performed By: #### C BC #### [address] Hemoglobin (Bld) [Mass/Vol] 15.8 g/dL High 11.8-15.4 [facility] Comment on above: Performed By: #### C BC #### [address] Lymphocytes (Bld) [#/Vol] 1.6 10*3/uL Normal 1.00-4.8 [facility] Comment on above: Performed By: #### C BC #### [address] Lymphocytes/100 WBC (Bld) 23.1 % Normal . [facility] Comment on above: Performed By: #### C BC #### [address] MCH (RBC) [Entitic mass] 32.6 pg Normal 24.7-34.3 [facility] Comment on above: Performed By: #### C BC #### [address] MCV (RBC) [Entitic vol] 95.3 fL Normal 80-100 [facility] Comment on above: Performed By: #### C BC #### [address] Mean Corpuscular HGB Conc 34.2 g/dL Normal 32.0-35.0 [facility] Comment on above: Performed By: #### C BC #### [address] Monocytes (Bld) [#/Vol] 0.5 10*3/uL Normal 0.0-0.8 [facility] Comment on above: Performed By: #### C BC #### [address] Monocytes/100 WBC (Bld) 6.6 % Normal . [facility] Comment on above: Performed By: #### C BC #### [address] Neutrophils (Bld) [#/Vol] 4.6 10*3/uL Normal 1.8-7.7 [facility] Comment on above: Performed By: #### C BC #### [address] Neutrophils/100 WBC (Bld) 67.1 % Normal . [facility] Comment on above: Performed By: #### C BC #### [address] NRBC% 0.1 /100{WBC} Normal 0-0.5 [facility] Comment on above: Performed By: #### C BC #### [address] Platelet mean volume (Bld) [Entitic vol] 10.4 fL Normal 6.3-10.7 [facility] Comment on above: Performed By: #### C BC #### [address] Platelets (Bld) [#/Vol] 120 10*3/uL Low 150-450 [facility] Comment on above: Performed By: #### C BC #### [address] RBC (Bld) [#/Vol] 4.86 10*6/uL Normal 3.60-5.00 [facility] Comment on above: Performed By: #### C BC #### [address] WBC (Bld) [#/Vol] 6.9 10*3/uL Normal 3.8-11.6 [facility] Comment on above: Performed By: #### C BC #### [address] Comprehensive Metabolic Pane juan 06-26-2024 Albumin [Mass/Vol] 3.8 g/dL Normal 3.5-5.7 [facility] Comment on above: Performed By: #### P ATH SLIDE REV, CMP, LDH, CBC #### [address] Albumin/Globulin [Mass ratio] 1.5 {ratio} Normal [facility] Comment on above: Performed By: #### P ATH SLIDE REV, CMP, LDH, CBC #### [address] ALP [Catalytic activity/Vol] 92 U/L Normal 34-104 [facility] Comment on above: Result Comment: PERF ORMED BY: [place] [address] PATHOLOGIST ENGINEERING TEAM SUPERVISOR LE MACE M.D. Performed By: #### P ATH SLIDE REV, CMP, LDH, CBC #### [address] ALT [Catalytic activity/Vol] 23 U/L Normal 7-52 [facility] Comment on above: Performed By: #### P ATH SLIDE REV, CMP, LDH, CBC #### [address] Anion gap [Moles/Vol] 12.2 mmol/L Normal 6.0-15.0 [facility] Comment on above: Performed By: #### P ATH SLIDE REV, CMP, LDH, CBC #### [address] AST [Catalytic activity/Vol] 36 U/L Normal 13-39 [facility] Comment on above: Performed By: #### P ATH SLIDE REV, CMP, LDH, CBC #### [address] Bilirubin [Mass/Vol] 0.4 mg/dL Normal 0.3-1.0 [facility] Comment on above: Performed By: #### P ATH SLIDE REV, CMP, LDH, CBC #### [address] Calcium [Mass/Vol] 9.4 mg/dL Normal 8.6-10.3 [facility] Comment on above: Performed By: #### P ATH SLIDE REV, CMP, LDH, CBC #### [place] [address] [place] Chloride [Moles/Vol] 103 mmol/L Normal 98-107 [facility] Comment on above: Performed By: #### P ATH SLIDE REV, CMP, LDH, CBC #### [place] [address] [place] CO2 [Moles/Vol] 29.0 mmol/L Normal 21.0-31.0 [facility] Comment on above: Performed By: #### P ATH SLIDE REV, CMP, LDH, CBC #### [address] Creatinine [Mass/Vol] 0.93 mg/dL Normal 0.60-1.20 [facility] Comment on above: Performed By: #### P ATH SLIDE REV, CMP, LDH, CBC #### [address] GFR/1.73 sq M.predicted MDRD (S/P/Bld) [Vol rate/Area] mL/min/{1.73_m2} Normal [facility] Comment on above: Performed By: #### P ATH SLIDE REV, CMP, LDH, CBC #### [address] Globulin (S) [Mass/Vol] 2.6 g/dL Normal [facility] Comment on above: Performed By: #### P ATH SLIDE REV, CMP, LDH, CBC #### [address] Glucose [Mass/Vol] 256 mg/dL High 70-100 [facility] Comment on above: Result Comment: [facility] Glucose Reference Range is dependent on time and content of last meal. Glucose of more than 200 mg/dL in a nonstressed, ambulatory subject supports the diagnosis of Diabetes Mellitus. ADA recommended reference range Performed By: #### P ATH SLIDE REV, CMP, LDH, CBC #### [address] Potassium [Moles/Vol] 4.2 mmol/L Normal 3.5-5.1 [facility] Comment on above: Performed By: #### P ATH SLIDE REV, CMP, LDH, CBC #### [address] Protein [Mass/Vol] 6.4 g/dL Normal 6.4-8.9 [facility] Comment on above: Performed By: #### P ATH SLIDE REV, CMP, LDH, CBC #### [address] Sodium [Moles/Vol] 140 mmol/L Normal 136-145 [facility] Comment on above: Performed By: #### P ATH SLIDE REV, CMP, LDH, CBC #### [facility] [address] [place] [address] [place] Urea nitrogen [Mass/Vol] 9 mg/dL Normal 7-25 [facility] Comment on above: Performed By: #### P ATH SLIDE REV, CMP, LDH, CBC #### [facility] [address] Creatinine [Mass/volume] in Serum or PlasmaOrdered By: Angelique Russell on 06-26-2024 Creatinine [Mass/Vol] Creatinine [Mass/v olume] in Serum or Plasma 0.60-1.20 [facility] Creatinine [Mass/volume] in UrineOrdered By: Angelique Russell on 06-26-2024 Creatinine (U) [Mass/Vol] Creatinine [Mass/volume] in Urine [facility] Comment on above: No reference range e stablished ECG 12 [place] 06-26-2024 Normal sinus rhythm [facility] Work Phone: Eosinophils Auto (Bld) [#/Vo l]Ordered By: Nataliya Jane on 06-26-2024 Eosinophils (Bld) [#/Vol] Automated eosinophil count 0.0-0.45 [facility] Eosinophils/100 WBC Auto (Bl d)Ordered By: Nataliya Jane on 06-26-2024 Eosinophils/100 WBC (Bld) Automated eosinophil % . [facility] Erythrocyte distribution wid th Auto (RBC) [Ratio]Ordered By: Nataliya Jane on 06-26-2024 Erythrocyte distribution width (RBC) [Ratio] Erythrocyte distribution width [Ratio] by Automated count 11.9-15.3 [facility] Flowcytometry Neogenomicon 0 06-26-2024 Flowcytometry Neogenomic Normal [facility] Comment on above: Result Comment: See report. Scanned copy available in EMR. Performed By: #### P ATH SLIDE REV, CMP, LDH, CBC #### [facility] [address] [place] [id number] [place] Globulin Calc (S) [Mass/Vol] Ordered By: Angelique Russell on 06-26-2024 Globulin (S) [Mass/Vol] Serum globulin measurement by calculation (mass/volume) [facility] Glucose [Mass/volume] in Ser um or PlasmaOrdered By: Angelique Russell on 06-26-2024 Glucose [Mass/Vol] Glucose [Mass/volume ] in Serum or Plasma High 70-100 [facility] Comment on above: ADA recommended refe rence rangeRandom Glucose Reference Range is dependent on time and content of last meal. Glucose of more than 200 mg/dL in a nonstressed, ambulatory subject supports the diagnosis of Diabetes Mellitus. Hematocrit Auto (Bld) [Volum e fraction]Ordered By: Nataliya Jane on 06-26-2024 Hematocrit (Bld) [Volume fraction] Hematocrit [Volume Fraction] of Blood by Automated count 34.0-46.4 [facility] Hemoglobin [Mass/volume] in BloodOrdered By: Nataliya Jane on 06-26-2024 Hemoglobin (Bld) [Mass/Vol] Hemoglobin [Mass/volume] in Blood High 11.8-15.4 [facility] FERDINAND 2 Neogenomicon FERDINAND 2 Neogenomic Normal [facility] Comment on above: Result Comment: See report. Scanned copy available in EMR. Performed By: #### P ATH SLIDE REV, CMP, LDH, CBC #### [facility] [address] [place] [id number] [place] Leukocytes [#/volume] correc deepika for nucleated erythrocytes in Blood by Automated counOrdered By: Nataliya Jane on 06-26-2024 WBC corrected for nucl RBC Auto (Bld) [#/Vol] Leukocytes [#/volume] corrected for nucleated erythrocytes in Blood by Automated coun 3.8-11.6 [facility] Lipid Panelon 06-26-2024 Cholesterol [Mass/Vol] 93 mg/dL Low 140-200 [facility] Comment on above: Result Comment: Chol less than 200 mg/dl low risk Chol 201-239 mg/dl borderline risk Chol 240 mg/dl and greater high risk Performed By: #### P ATH SLIDE REV, CMP, LDH, CBC #### [facility] [address] [place] [address] [place] Cholesterol in HDL [Mass/Vol] 27 mg/dL Normal 23-92 [facility] Comment on above: Result Comment: HDL CHOL ATP-III CLASSIFICATION Cardiovascular Risk HDL > or equal to 60 mg/dL LOW HDL < 40 mg/dL HIGH Performed By: #### P ATH SLIDE REV, CMP, LDH, CBC #### [facility] [address] Cholesterol.total/Monica sterol in HDL [Mass ratio] 3.4 {ratio} Normal <5.0 [facility] Comment on above: Performed By: #### P ATH SLIDE REV, CMP, LDH, CBC #### [facility] [address] LDL Cholesterol,Calculated 34 mg/dL Normal 0-100 [facility] Comment on above: Result Comment: LDL ATP III CLASSIFICATION LDL less than 100 mg/dL Optimal LDL 100-129 mg/dL Near or above optimal LDL 130-159 mg/dL Borderline high LDL 160-189 mg/dL High LDL greater than 189 mg/dL Very high Performed By: #### P ATH SLIDE REV, CMP, LDH, CBC #### [address] Triglyceride w/Reflex 162 mg/dL High 0-149 [facility] Comment on above: Result Comment: TRIG ATP III CLASSIFICATION TRIG less than 150 mg/dL Normal TRIG 150-199 mg/dL Borderline high TRIG 200-500 mg/dL High TRIG greater than 500 mg/dL Very high Standard traceable to the Center for Disease Conrtrol and Prevention (CDC) test method. Performed By: #### P ATH SLIDE REV, CMP, LDH, CBC #### [address] VLDL CHOLESTEROL 32 mg/dL Normal [facility] Comment on above: Performed By: #### P ATH SLIDE REV, CMP, LDH, CBC #### [facility] [address] Lymphocytes Auto (Bld) [#/Vo l]Ordered By: Nataliya Jane on 06-26-2024 Lymphocytes (Bld) [#/Vol] Lymphocytes [#/volume] in Blood by Automated count 1.00-4.8 [facility] Lymphocytes/100 WBC Auto (Bl d)Ordered By: Nataliya Jane on 06-26-2024 Lymphocytes/100 WBC (Bld) Lymphocytes/100 leukocytes in Blood by Automated count . [facility] MCH Auto (RBC) [Entitic mass ]Ordered By: Nataliya Lucinda on 06-26-2024 MCH (RBC) [Entitic mass] MCH [Entitic mass] by Automated count 24.7-34.3 [facility] MCHC Auto (RBC) [Mass/Vol]Or dered By: Nataliya Lucinda on 06-26-2024 MCHC (RBC) [Mass/Vol] MCHC [Mass/volume] by Automated count 32.0-35.0 [facility] MCV Auto (RBC) [Entitic vol] Ordered By: Nataliya Lucinda on 06-26-2024 MCV (RBC) [Entitic vol] MCV [Entitic vol ume] by Automated count 80-100 [facility] MicroAlb Creat Ratio,Uon Albumin DL <= 20 mg/L (U) [Mass/Vol] mg/dL Normal 0.0-1.8 [facility] Comment on above: Performed By: #### U RMACRERAT ####[place] [id number] [address] Creatinine, Urine (Random) 65.00 mg/dL Normal [facility] Comment on above: Result Comment: No r eference range established Performed By: #### U RMACRERAT ####[place] [id number] [facility] Microalbumin/Creatinine Ratio Not performed Normal 0.0-30.0 [facility] Comment on above: Result Comment: PERF ORMED BY: [facility] [address] [place] [id number] PATHOLOGIST ENGINEERING TEAM SUPERVISOR LE MACE M.D. Performed By: #### U RMACRERAT ####[place] [id number] [place] [id number] [place] Microalbumin [Mass/volume] i n UrineOrdered By: Angelique Russell on 06-26-2024 Albumin DL <= 20 mg/L (U) [Mass/Vol] Microalbumin [Mass/volume] in Urine 0.0-1.8 [facility] Monocytes Auto (Bld) [#/Vol] Ordered By: Nataliya Jane on 06-26-2024 Monocytes (Bld) [#/Vol] Automated blood monocyte count 0.0-0.8 [facility] Monocytes/100 WBC Auto (Bld) Ordered By: Nataliya Jane on 06-26-2024 Monocytes/100 WBC (Bld) Automated monocyte % . [facility] Natriuretic peptide B [Mass/ Vol]Ordered By: Thuan Wise on 06-26-2024 Natriuretic peptide B (Bld) [Mass/Vol] BNP ser/plas 5-100 [facility] Neutrophils Auto (Bld) [#/Vo l]Ordered By: Nataliya Jane on 06-26-2024 Neutrophils (Bld) [#/Vol] Neutrophils [#/volume] in Blood by Automated count 1.8-7.7 [facility] Neutrophils/100 WBC Auto (Bl d)Ordered By: Nataliya Jane on 06-26-2024 Neutrophils/100 WBC (Bld) Automated neutrophil % . [facility] No Panel InformationOrdered By: Angelique Russell on 06-26-2024 Estimated GFR (CKD-EPI) > 60.0 mL/Min [facility] Creatinine Clearance (Chem N/A [facility] No Panel InformationOrdered By: Nataliya Jane on 06-26-2024 BCR/abl See comment [facility] Comment on above: See report. Scanned copy available in EMR. [id number] See comment [facility] Comment on above: See report. Scanned copy available in EMR. Nucleated erythrocytes [Pres ence] in Blood by Automated countOrdered By: Nataliya Jane on 06-26-2024 Nucleated RBC Auto Ql (Bld) Nucleated erythrocytes [Presence] in Blood by Automated count 0-0.5 [facility] Platelet mean volume Auto (B ld) [Entitic vol]Ordered By: Nataliya Jane on 06-26-2024 Platelet mean volume (Bld) [Entitic vol] Platelet mean volume [Entitic volume] in Blood by Automated count 6.3-10.7 [facility] Platelets Auto (Bld) [#/Vol] Ordered By: Nataliya Jane on 06-26-2024 Platelets (Bld) [#/Vol] Platelets [#/vol ume] in Blood by Automated count Low 150-450 [facility] Potassium [Moles/volume] in Serum or PlasmaOrdered By: Angelique Russell on 06-26-2024 Potassium [Moles/Vol] Potassium [Moles/v olume] in Serum or Plasma 3.5-5.1 [facility] Protein [Mass/volume] in Ser um or PlasmaOrdered By: Angelique Russell on 06-26-2024 Protein [Mass/Vol] Protein [Mass/volume ] in Serum or Plasma 6.4-8.9 [facility] RBC Auto (Bld) [#/Vol]Ordere d By: Nataliya Jane on 06-26-2024 RBC (Bld) [#/Vol] Erythrocytes [#/volu me] in Blood by Automated count 3.60-5.00 [facility] Serum or plasma albumin/glob ulin mass ratioOrdered By: Angelique Russell on 06-26-2024 Albumin/Globulin [Mass ratio] Serum or plasma albumin/globulin mass ratio [facility] Serum or plasma anion gap de terminationOrdered By: Angelique Russell on 06-26-2024 Anion gap [Moles/Vol] Serum or plasma an ion gap determination 6.0-15.0 [facility] Serum or plasma total choles terol/high density lipoprotein (HDL) cholesterol mass ratOrdered By: Angelique Russell on 06-26-2024 Cholesterol.total/Monica sterol in HDL [Mass ratio] Serum or plasma total cholesterol/high density lipoprotein (HDL) cholesterol mass rat <5.0 [facility] Sodium [Moles/volume] in Ser um or PlasmaOrdered By: Angelique Russell on 06-26-2024 Sodium [Moles/Vol] Sodium [Moles/volume ] in Serum or Plasma 136-145 [facility] Thyroid Stim Hormone w/Rflxo n 06-26-2024 Thyroid Stim Hormone w/Rflx 1.45 u[iU]/mL Normal 0.45-5.33 [facility] Comment on above: Result Comment: PERF ORMED BY: [place] [address] PATHOLOGIST ENGINEERING TEAM SUPERVISOR LE MACE M.D. Performed By: #### P ATH SLIDE REV, CMP, LDH, CBC #### [facility] [address] [place] [id number] [facility] Thyrotropin [Units/volume] i n Serum or PlasmaOrdered By: Angelique Russell on 06-26-2024 TSH Qn Thyrotropin [Units/volume] in Serum or Plasma 0.45-5.33 [facility] Triglyceride [Mass/volume] i n Serum or PlasmaOrdered By: Tondra Yvonne on 06-26-2024 Triglyceride [Mass/Vol] Triglyceride [Mass/volume] in Serum or Plasma High 0-149 [facility] Comment on above: TRIG ATP [...] nitrogen [Mass/volume] in Serum or Plasma 11-20 [facility] Urine microalbumin/creatinin e mass ratioOrdered By: Angelique Russell on 06-26-2024 Albumin/Creatinine DL <= 20 mg/L (U) [Mass ratio] Urine microalbumin/creatinine mass ratio [facility] Comment on above: Test not performed WBC Auto (Bld) [#/Vol]Ordere d By: Nataliya Jane on 06-26-2024 WBC (Bld) [#/Vol] Leukocytes [#/volume ] in Blood by Automated count 3.8-11.6 [facility] [facility] head/brain wo/w conon MR head/brain wo/w con [facility] Main [place] [address] [place] [address] MRI Report Signed Patient: Taye Gay MR#: [id number] 19 : 1955 Acct:[id number] Age/Sex: 68 / F ADM Date: 05/25/24 Loc: MR Room: Type: [facility] CLI Attending Dr: Sandra Keita DO Copies to: [...] Eugenio Lazo M.D.05/25/2024 7:59 PM Dictation Location: [place] [address] Transcribed By: [facility] 05/25/241958 Dictated By: Eugenio Lazo DO 05/25/241953 Signed By: 05/25/241958 Normal [facility] Magnetic resonance imaging r eportOrdered By: Eugenio Lazo on 05-25-2024 Study report [facility] Main [place] [address] [place] [address] MRI Report Signed Patient: Taye Gay MR#: [id number] : 1955 Acct:[id number] Age/Sex: 68 / F ADM Date: 5 Loc: MR Room: Type: [facility] CLI Attending Dr: Sandra Keita DO Copies to: [...] Eugenio Lazo M.D.05/25/2024 7:59 PM Dictation Location: [place] [address] Transcribed By: [facility] 05/25/241958 Dictated By: Eugenio Lazo DO 05/25/241953 Signed By: 05/25/241958 [facility] Alanine aminotransferase [En zymatic activity/volume] in Serum or PlasmaOrdered By: Priscilla Lang on 04-30-2024 ALT [Catalytic activity/Vol] Alanine aminotransferase [Enzymatic activity/volume] in Serum or Plasma 7-52 [facility] Albumin [Mass/volume] in Ser um or Plasma by Bromocresol green (BCG) dye binding methoOrdered By: Priscilla Lang on 04-30-2024 Albumin BCG dye [Mass/Vol] Albumin [Mass/volume] in Serum or Plasma by Bromocresol green (BCG) dye binding metho 3.5-5.7 [facility] Alkaline phosphatase [Enzyma tic activity/volume] in Serum or PlasmaOrdered By: Priscilla Lang on 04-30-2024 ALP [Catalytic activity/Vol] Alkaline phosphatase [Enzymatic activity/volume] in Serum or Plasma 34-104 [facility] Aspartate aminotransferase [ Enzymatic activity/volume] in Serum or PlasmaOrdered By: Priscilla Lang on 04-30-2024 AST [Catalytic activity/Vol] Aspartate aminotransferase [Enzymatic activity/volume] in Serum or Plasma 13-39 [facility] Basophils Auto (Bld) [#/Vol] Ordered By: Priscilla Lang on 04-30-2024 Basophils (Bld) [#/Vol] Automated basophil count 0.0-0.2 [facility] Basophils/100 WBC Auto (Bld) Ordered By: Priscilla Lang on 04-30-2024 Basophils/100 WBC (Bld) Automated basophil % . [facility] Bilirubin.total [Mass/volume ] in Serum or PlasmaOrdered By: Priscilla Lang on 04-30-2024 Bilirubin [Mass/Vol] Bilirubin.total [Mass/volume] in Serum or Plasma 0.3-1.0 [facility] Calcium [Mass/volume] in Ser um or PlasmaOrdered By: Priscilla Lang on 04-30-2024 Calcium [Mass/Vol] Calcium [Mass/volume ] in Serum or Plasma 8.6-10.3 [facility] Carbon dioxide, total [Moles /volume] in Serum or PlasmaOrdered By: Priscilla Lang on 04-30-2024 CO2 [Moles/Vol] Carbon dioxide, tota l [Moles/volume] in Serum or Plasma 21.0-31.0 [facility] Chloride [Moles/volume] in S elliot or PlasmaOrdered By: Priscilla Lang on 04-30-2024 Chloride [Moles/Vol] Chloride [Moles/vol ume] in Serum or Plasma 98-107 [facility] Complete Blood Count Auto Di ffon 04-30-2024 Basophils (Bld) [#/Vol] 0.0 10*3/uL Normal 0.0-0.2 [facility] Comment on above: Result Comment: PERF ORMED BY: [place] [address] PATHOLOGIST ENGINEERING TEAM SUPERVISOR LE MACE M.D. Performed By: #### P ATH TO [facility] #### [address] Basophils/100 WBC (Bld) 0.4 % Normal . [facility] Comment on above: Performed By: #### P ATH TO [facility] #### [address] Eosinophils (Bld) [#/Vol] 0.2 10*3/uL Normal 0.0-0.45 [facility] Comment on above: Performed By: #### P ATH TO [facility] #### [place] [address] [place] Eosinophils/100 WBC (Bld) 2.9 % Normal . [facility] Comment on above: Performed By: #### P ATH TO [facility] #### [address] Erythrocyte distribution width (RBC) [Ratio] 15.4 % High 11.9-15.3 [facility] Comment on above: Performed By: #### P ATH TO [facility] #### [address] Hematocrit (Bld) [Volume fraction] 44.3 % Normal 34.0-46.4 [facility] Comment on above: Performed By: #### P ATH TO [facility] #### [address] Hemoglobin (Bld) [Mass/Vol] 14.7 g/dL Normal 11.8-15.4 [facility] Comment on above: Performed By: #### P ATH TO [facility] #### [place] [address] [place] Lymphocytes (Bld) [#/Vol] 1.8 10*3/uL Normal 1.00-4.8 [facility] Comment on above: Performed By: #### P ATH TO [facility] #### [place] [address] [place] Lymphocytes/100 WBC (Bld) 24.9 % Normal . [facility] Comment on above: Performed By: #### P ATH TO [facility] #### [address] MCH (RBC) [Entitic mass] 31.4 pg Normal 24.7-34.3 [facility] Comment on above: Performed By: #### P ATH TO [facility] #### [address] MCV (RBC) [Entitic vol] 94.4 fL Normal 80-100 T [facility] Comment on above: Performed By: #### P ATH TO [facility] #### [address] Mean Corpuscular HGB Conc 33.3 g/dL Normal 32.0-35.0 [facility] Comment on above: Performed By: #### P ATH TO [facility] #### [place] [address] [place] Monocytes (Bld) [#/Vol] 0.6 10*3/uL Normal 0.0-0.8 [facility] Comment on above: Performed By: #### P ATH TO [facility] #### [address] Monocytes/100 WBC (Bld) 8.3 % Normal . T [facility] Comment on above: Performed By: #### P ATH TO [facility] #### [place] [address] [place] Neutrophils (Bld) [#/Vol] 4.6 10*3/uL Normal 1.8-7.7 [facility] Comment on above: Performed By: #### P ATH TO [facility] #### [place] [address] [place] Neutrophils/100 WBC (Bld) 63.5 % Normal . [facility] Comment on above: Performed By: #### P ATH TO [facility] #### [place] [address] [place] NRBC% 0.0 /100{WBC} Normal 0-0.5 [facility] Comment on above: Performed By: #### P ATH TO [facility] #### [address] Platelet mean volume (Bld) [Entitic vol] 9.5 fL Normal 6.3-10.7 [facility] Comment on above: Performed By: #### P ATH TO [facility] #### [facility] [address] Platelets (Bld) [#/Vol] 119 10*3/uL Low 150-450 [facility] Comment on above: Performed By: #### P ATH TO [facility] #### [facility] [address] RBC (Bld) [#/Vol] 4.70 10*6/uL Normal 3.60-5.00 [facility] Comment on above: Performed By: #### P ATH TO [facility] #### [facility] [address] [place] [address] WBC (Bld) [#/Vol] 7.3 10*3/uL Normal 3.8-11.6 [facility] Comment on above: Performed By: #### P ATH TO [facility] #### [address] Comprehensive Metabolic Pane juan 04-30-2024 Albumin [Mass/Vol] 3.5 g/dL Normal 3.5-5.7 [facility] Comment on above: Performed By: #### G JUSTINALS #### Point of Care testing , Albumin/Globulin [Mass ratio] 1.2 {ratio} Normal [facility] Comment on above: Performed By: #### G JUSTINALS #### Point of Care testing , ALP [Catalytic activity/Vol] 85 U/L Normal 34-104 [facility] Comment on above: Performed By: #### G JUSTINALS #### Point of Care testing , ALT [Catalytic activity/Vol] 16 U/L Normal 7-52 [facility] Comment on above: Performed By: #### G JUSTINALS #### Point of Care testing , Anion gap [Moles/Vol] 10.9 mmol/L Normal 6.0-15.0 [facility] Comment on above: Performed By: #### G JUSTINALS #### Point of Care testing , AST [Catalytic activity/Vol] 23 U/L Normal 13-39 [facility] Comment on above: Performed By: #### G LULS #### Point of Care testing , Bilirubin [Mass/Vol] 0.5 mg/dL Normal 0.3-1.0 [facility] Comment on above: Performed By: #### G LULS #### Point of Care testing , Calcium [Mass/Vol] 9.3 mg/dL Normal 8.6-10.3 [facility] Comment on above: Performed By: #### G LULS #### Point of Care testing , Chloride [Moles/Vol] 106 mmol/L Normal 98-107 [facility] Comment on above: Performed By: #### G LULS #### Point of Care testing , CO2 [Moles/Vol] 26.9 mmol/L Normal 21.0-31.0 [facility] Comment on above: Performed By: #### G LULS #### Point of Care testing , Creatinine [Mass/Vol] 0.80 mg/dL Normal 0.60-1.20 [facility] Comment on above: Performed By: #### G LULS #### Point of Care testing , Creatinine Clr Calc Pharmacy 82.38 Normal [facility] Comment on above: Performed By: #### G LULS #### Point of Care testing , GFR/1.73 sq M.predicted MDRD (S/P/Bld) [Vol rate/Area] mL/min/{1.73_m2} Normal [facility] Comment on above: Performed By: #### G LULS #### Point of Care testing , Globulin (S) [Mass/Vol] 2.9 g/dL Normal T [facility] Comment on above: Performed By: #### G LULS #### Point of Care testing , Glucose [Mass/Vol] 130 mg/dL High 70-100 [facility] Comment on above: Result Comment: [place] Glucose Reference Range is dependent on time and content of last meal. Glucose of more than 200 mg/dL in a nonstressed, ambulatory subject supports the diagnosis of Diabetes Mellitus. ADA recommended reference range Performed By: #### G LULS #### Point of Care testing , Potassium [Moles/Vol] 3.8 mmol/L Normal 3.5-5.1 [facility] Comment on above: Performed By: #### G LULS #### Point of Care testing , Protein [Mass/Vol] 6.4 g/dL Normal 6.4-8.9 [facility] Comment on above: Performed By: #### G LULS #### Point of Care testing , Sodium [Moles/Vol] 140 mmol/L Normal 136-145 [facility] Comment on above: Performed By: #### G LULS #### Point of Care testing , Urea nitrogen [Mass/Vol] 9 mg/dL Normal 7-25 [facility] Comment on above: Performed By: #### G LULS #### Point of Care testing , Creatinine [Mass/volume] in Serum or PlasmaOrdered By: Priscilla Lang on 04-30-2024 Creatinine [Mass/Vol] Creatinine [Mass/v olume] in Serum or Plasma 0.60-1.20 [facility] Eosinophils Auto (Bld) [#/Vo l]Ordered By: Priscilla Lang on 04-30-2024 Eosinophils (Bld) [#/Vol] Automated eosinophil count 0.0-0.45 [facility] Eosinophils/100 WBC Auto (Bl d)Ordered By: Priscilla Lang on 04-30-2024 Eosinophils/100 WBC (Bld) Automated eosinophil % . [facility] Erythrocyte distribution wid th Auto (RBC) [Ratio]Ordered By: Priscilla Lang on 04-30-2024 Erythrocyte distribution width (RBC) [Ratio] Erythrocyte distribution width [Ratio] by Automated count High 11.9-15.3 [facility] Globulin Calc (S) [Mass/Vol] Ordered By: Priscilla Lang on 04-30-2024 Globulin (S) [Mass/Vol] Serum globulin measurement by calculation (mass/volume) [facility] Glucose Glucometer (BldC) [M ass/Vol]Ordered By: Priscilla Lang on 04-30-2024 Glucose [Mass/Vol] Capillary blood gluc ose measurement by glucometer (mass/volume) [facility] Comment on above: Random Glucose Refer ence Range is dependent on time and content of last meal. Glucose of more than 200 mg/dL in a nonstressed, ambulatory subject supports the diagnosis of Diabetes Mellitus. Glucose Poct Glucometerson 0 04-30-2024 Glucose [Mass/Vol] 154 mg/dL Normal [facility] Comment on above: Result Comment: [place] Glucose Reference Range is dependent on time and content of last meal. Glucose of more than 200 mg/dL in a nonstressed, ambulatory subject supports the diagnosis of Diabetes Mellitus. PERFORMED BY: [place] [address] PATHOLOGIST ENGINEERING TEAM SUPERVISOR LE MACE M.D. Performed By: #### P ATH SLIDE REV, CMP, LDH, CBC #### [facility] [address] [place] [address] Glucose [Mass/Vol] 134 mg/dL Normal [facility] Comment on above: Result Comment: [place] om Glucose Reference Range is dependent on time and content of last meal. Glucose of more than 200 mg/dL in a nonstressed, ambulatory subject supports the diagnosis of Diabetes Mellitus. PERFORMED BY: [place] [address] PATHOLOGIST ENGINEERING TEAM SUPERVISOR LE MACE M.D. Performed By: #### P ATH SLIDE REV, CMP, LDH, CBC #### [facility] [address] [place] [address] Glucose [Mass/volume] in Ser um or PlasmaOrdered By: Priscilla Lang on 04-30-2024 Glucose [Mass/Vol] Glucose [Mass/volume ] in Serum or Plasma High 70-100 [facility] Comment on above: ADA recommended refe rence rangeRandom Glucose Reference Range is dependent on time and content of last meal. Glucose of more than 200 mg/dL in a nonstressed, ambulatory subject supports the diagnosis of Diabetes Mellitus. Hematocrit Auto (Bld) [Volum e fraction]Ordered By: Priscilla Lang on 04-30-2024 Hematocrit (Bld) [Volume fraction] Hematocrit [Volume Fraction] of Blood by Automated count 34.0-46.4 [facility] Hemoglobin [Mass/volume] in BloodOrdered By: Priscilla Lang on 04-30-2024 Hemoglobin (Bld) [Mass/Vol] Hemoglobin [Mass/volume] in Blood 11.8-15.4 [facility] Leukocytes [#/volume] correc deepika for nucleated erythrocytes in Blood by Automated counOrdered By: Priscilla Lang on 04-30-2024 WBC corrected for nucl RBC Auto (Bld) [#/Vol] Leukocytes [#/volume] corrected for nucleated erythrocytes in Blood by Automated coun 3.8-11.6 [facility] Lymphocytes Auto (Bld) [#/Vo l]Ordered By: Priscilla Lang on 04-30-2024 Lymphocytes (Bld) [#/Vol] Lymphocytes [#/volume] in Blood by Automated count 1.00-4.8 [facility] Lymphocytes/100 WBC Auto (Bl d)Ordered By: Priscilla Lang on 04-30-2024 Lymphocytes/100 WBC (Bld) Lymphocytes/100 leukocytes in Blood by Automated count . [facility] MCH Auto (RBC) [Entitic mass ]Ordered By: Prisclila Lang on 04-30-2024 MCH (RBC) [Entitic mass] MCH [Entitic mass] by Automated count 24.7-34.3 [facility] MCHC Auto (RBC) [Mass/Vol]Or dered By: Priscilla Lang on 04-30-2024 MCHC (RBC) [Mass/Vol] MCHC [Mass/volume] by Automated count 32.0-35.0 [facility] MCV Auto (RBC) [Entitic vol] Ordered By: Priscilla Lang on 04-30-2024 MCV (RBC) [Entitic vol] MCV [Entitic vol ume] by Automated count 80-100 [facility] Magnesiumon 04-30-2024 Magnesium [Mass/Vol] 1.7 mg/dL Low 1.9-2.7 [facility] Comment on above: Result Comment: PERF ORMED BY: [facility] [address] [place] [address] PATHOLOGIST ENGINEERING TEAM SUPERVISOR MOHAMED M EL-FAKHARANY M.D. Performed By: #### G LULS #### Point of Care testing , Magnesium [Mass/volume] in S elliot or PlasmaOrdered By: Priscilla Lang on 04-30-2024 Magnesium [Mass/Vol] Magnesium [Mass/vol ume] in Serum or Plasma Low 1.9-2.7 [facility] Monocytes Auto (Bld) [#/Vol] Ordered By: Priscilla Lang on 04-30-2024 Monocytes (Bld) [#/Vol] Automated blood monocyte count 0.0-0.8 [facility] Monocytes/100 WBC Auto (Bld) Ordered By: Priscilla Lang on 04-30-2024 Monocytes/100 WBC (Bld) Automated monocyte % . [facility] Neutrophils Auto (Bld) [#/Vo l]Ordered By: Priscilla Lang on 04-30-2024 Neutrophils (Bld) [#/Vol] Neutrophils [#/volume] in Blood by Automated count 1.8-7.7 [facility] Neutrophils/100 WBC Auto (Bl d)Ordered By: Priscilla Lang on 04-30-2024 Neutrophils/100 WBC (Bld) Automated neutrophil % . [facility] No Panel InformationOrdered By: Priscilla Lang on 04-30-2024 Estimated GFR (CKD-EPI) > 60.0 mL/Min [facility] Creatinine Clearance (Chem 82.38 [facility] Nucleated erythrocytes [Pres ence] in Blood by Automated countOrdered By: Priscilla Lang on 04-30-2024 Nucleated RBC Auto Ql (Bld) Nucleated erythrocytes [Presence] in Blood by Automated count 0-0.5 [facility] Phosphate [Mass/volume] in S elliot or PlasmaOrdered By: Priscilla Lang on 04-30-2024 Phosphate [Mass/Vol] Phosphate [Mass/vol ume] in Serum or Plasma 2.5-4.5 [facility] Phosphoruson 04-30-2024 Phosphate [Mass/Vol] 2.9 mg/dL Normal 2.5-4.5 [facility] Comment on above: Performed By: #### G LULS #### Point of Care testing , Platelet mean volume Auto (B ld) [Entitic vol]Ordered By: Priscilla Lang on 04-30-2024 Platelet mean volume (Bld) [Entitic vol] Platelet mean volume [Entitic volume] in Blood by Automated count 6.3-10.7 [facility] Platelets Auto (Bld) [#/Vol] Ordered By: Priscilla Lang on 04-30-2024 Platelets (Bld) [#/Vol] Platelets [#/vol ume] in Blood by Automated count Low 150-450 [facility] Potassium [Moles/volume] in Serum or PlasmaOrdered By: Priscilla Lang on 04-30-2024 Potassium [Moles/Vol] Potassium [Moles/v olume] in Serum or Plasma 3.5-5.1 [facility] Protein [Mass/volume] in Ser um or PlasmaOrdered By: Priscilla Lang on 04-30-2024 Protein [Mass/Vol] Protein [Mass/volume ] in Serum or Plasma 6.4-8.9 [facility] RBC Auto (Bld) [#/Vol]Ordere d By: Priscilla Lang on 04-30-2024 RBC (Bld) [#/Vol] Erythrocytes [#/volu me] in Blood by Automated count 3.60-5.00 [facility] Serum or plasma albumin/glob ulin mass ratioOrdered By: Priscilla Lang on 04-30-2024 Albumin/Globulin [Mass ratio] Serum or plasma albumin/globulin mass ratio [facility] Serum or plasma anion gap de terminationOrdered By: Priscilla Lang on 04-30-2024 Anion gap [Moles/Vol] Serum or plasma an ion gap determination 6.0-15.0 [facility] Sodium [Moles/volume] in Ser um or PlasmaOrdered By: Priscilla Lang on 04-30-2024 Sodium [Moles/Vol] Sodium [Moles/volume ] in Serum or Plasma 136-145 [facility] Urea nitrogen [Mass/volume] in Serum or PlasmaOrdered By: Priscilla Lang on 04-30-2024 Urea nitrogen [Mass/Vol] Urea nitrogen [Mass/volume] in Serum or Plasma 7-25 [facility] WBC Auto (Bld) [#/Vol]Ordere d By: Priscilla Lang on 04-30-2024 WBC (Bld) [#/Vol] Leukocytes [#/volume ] in Blood by Automated count 3.8-11.6 [facility] Amphetamine Screen Ql (U)Ord ered By: Priscilla Lang on 04-29-2024 Amphetamines Ql (U) Amphetamines screen Negativ e [facility] Barbiturates [Presence] in U rine by Screen methodOrdered By: Priscilla Lang on 04-29-2024 Barbiturates Screen Ql (U) Barbiturates [Presence] in Urine by Screen method Negative [facility] Basic Metabolic Panelon Anion gap [Moles/Vol] 11.3 mmol/L Normal 6.0-15.0 [facility] Comment on above: Order Comment: FASTI NG N Performed By: #### P ATH SLIDE REV, CMP, LDH, CBC #### [facility] [address] Calcium [Mass/Vol] 8.9 mg/dL Normal 8.6-10.3 [facility] Comment on above: Order Comment: FASTI NG N Performed By: #### P ATH SLIDE REV, CMP, LDH, CBC #### [facility] [address] [place] [address] [place] Chloride [Moles/Vol] 106 mmol/L Normal 98-107 [facility] Comment on above: Order Comment: FASTI NG N Performed By: #### P ATH SLIDE REV, CMP, LDH, CBC #### [facility] [address] [place] [id number] [place] CO2 [Moles/Vol] 25.2 mmol/L Normal 21.0-31.0 [facility] Comment on above: Order Comment: FASTI NG N Performed By: #### P ATH SLIDE REV, CMP, LDH, CBC #### [facility] [address] Creatinine [Mass/Vol] 0.85 mg/dL Normal 0.60-1.20 [facility] Comment on above: Order Comment: FASTI NG N Performed By: #### P ATH SLIDE REV, CMP, LDH, CBC #### [facility] [address] [place] [address] [place] Creatinine Clr Calc Pharmacy 77.21 Normal [facility] Comment on above: Order Comment: FASTI NG N Performed By: #### P ATH SLIDE REV, CMP, LDH, CBC #### [facility] [address] [place] [address] [place] GFR/1.73 sq M.predicted MDRD (S/P/Bld) [Vol rate/Area] mL/min/{1.73_m2} Normal [facility] Comment on above: Order Comment: FASTI NG N Performed By: #### P ATH SLIDE REV, CMP, LDH, CBC #### [address] Glucose [Mass/Vol] 206 mg/dL High 70-100 [facility] Comment on above: Order Comment: FASTI NG N Result Comment: [place] Glucose Reference Range is dependent on time and content of last meal. Glucose of more than 200 mg/dL in a nonstressed, ambulatory subject supports the diagnosis of Diabetes Mellitus. ADA recommended reference range Performed By: #### P ATH SLIDE REV, CMP, LDH, CBC #### [address] Potassium [Moles/Vol] 3.5 mmol/L Normal 3.5-5.1 [facility] Comment on above: Order Comment: FASTI NG N Performed By: #### P ATH SLIDE REV, CMP, LDH, CBC #### [address] Sodium [Moles/Vol] 139 mmol/L Normal 136-145 [facility] Comment on above: Order Comment: FASTI NG N Performed By: #### P ATH SLIDE REV, CMP, LDH, CBC #### [address] Urea nitrogen [Mass/Vol] 9 mg/dL Normal 7-25 [facility] Comment on above: Order Comment: FASTI NG N Performed By: #### P ATH SLIDE REV, CMP, LDH, CBC #### [facility] [address] [place] [id number] [facility] Benzodiazepines Screen Ql (U )Ordered By: Priscilla Lang on 04-29-2024 Benzodiazepines Ql (U) Benzodiazepines [Presence] in Urine by Screen method Negative [facility] Benzoylecgonine [Presence] i n Urine by Screen methodOrdered By: Priscilla Lang on 04-29-2024 Benzoylecgonine Screen Ql (U) Benzoylecgonine [Presence] in Urine by Screen method Negative [facility] Cannabinoids [Presence] in U rine by Screen methodOrdered By: Priscilla Lang on 04-29-2024 Cannabinoids Screen Ql (U) Cannabinoids [Presence] in Urine by Screen method Negative [facility] Comment on above: These are unconfirme d results and should not be used for legal purposes. Drug Cut-Off Concentration: AMPH 1000 ng/mL KENDRICK 200 ng/mL HEATHER 200 ng/mL COCM 300 ng/mL OP 300 ng/mL PCP 25 ng/mL THC 20 ng/mL Cholesterol [Mass/volume] in Serum or PlasmaOrdered By: Jori Hearn on 04-29-2024 Cholesterol [Mass/Vol] Cholesterol [Mass/volume] in Serum or Plasma Low 140-200 [facility] Comment on above: Chol less than 200 m g/dl low riskChol 201-239 mg/dl borderline riskChol 240 mg/dl and greater high risk Cholesterol in HDL [Mass/vol ume] in Serum or PlasmaOrdered By: Jori Hearn on 04-29-2024 Cholesterol in HDL [Mass/Vol] Serum or plasma high density lipoprotein (HDL) cholesterol measurement 23-92 [facility] Comment on above: HDL CHOL ATP-III CLA SSIFICATION Cardiovascular RiskHDL > or equal to 60 mg/dL LOWHDL < 40 mg/dL HIGH Cholesterol in LDL Calc [Mas s/Vol]Ordered By: Jori Hearn on 04-29-2024 Cholesterol in LDL [Mass/Vol] Cholesterol in LDL [Mass/volume] in Serum or Plasma by calculation 0-100 [facility] Comment on above: LDL ATP III CLASSIFI CATIONLDL less than 100 mg/dL OptimalLDL 100-129 mg/dL Near or above optimalLDL 130-159 mg/dL Borderline highLDL 160-189 mg/dL HighLDL greater than 189 mg/dL Very high Cholesterol in VLDL Calc [Ma ss/Vol]Ordered By: Jori Hearn on 04-29-2024 Cholesterol in VLDL [Mass/Vol] Cholesterol in VLDL [Mass/volume] in Serum or Plasma by calculation [facility] Drug Screen,Urineon 04-29-19 25 Amphetamine Screen,Urine Negative Normal Negative [facility] Comment on above: Performed By: #### P ATH SLIDE REV, CMP, LDH, CBC #### [address] Barbiturate Screen,Urine Negative Normal Negative [facility] Comment on above: Performed By: #### P ATH SLIDE REV, CMP, LDH, CBC #### [place] [address] [place] Benzodiazepines Screen,Urine Negative Normal Negative [facility] Comment on above: Performed By: #### P ATH SLIDE REV, CMP, LDH, CBC #### [address] Cannabinoid Screen,Urine Negative Normal Negative [facility] Comment on above: Result Comment: Thes e are unconfirmed results and should not be used for legal purposes. Drug Cut-Off Concentration: AMPH 1000 ng/mL KENDRICK 200 ng/mL HEATHER 200 ng/mL COCM 300 ng/mL OP 300 ng/mL PCP 25 ng/mL THC 20 ng/mL PERFORMED BY: [place] [address] PATHOLOGIST ENGINEERING TEAM SUPERVISOR LE MACE M.D. Performed By: #### P ATH SLIDE REV, CMP, LDH, CBC #### [place] [address] [place] Cocaine Screen,Urine Negative Normal Negative [facility] Comment on above: Performed By: #### P ATH SLIDE REV, CMP, LDH, CBC #### [address] Opiate Screen,Urine Negative Normal Negative [facility] Comment on above: Performed By: #### P ATH SLIDE REV, CMP, LDH, CBC #### [address] Phencyclidine Screen,Urine Negative Normal Negative [facility] Comment on above: Performed By: #### P ATH SLIDE REV, CMP, LDH, CBC #### [address] Glucose Poct Glucometerson 0 04-29-2024 Glucose [Mass/Vol] 165 mg/dL Normal [facility] Comment on above: Result Comment: [place] Glucose Reference Range is dependent on time and content of last meal. Glucose of more than 200 mg/dL in a nonstressed, ambulatory subject supports the diagnosis of Diabetes Mellitus. PERFORMED BY: [place] [address] PATHOLOGIST ENGINEERING TEAM SUPERVISOR LE MACE M.D. Performed By: #### P ATH SLIDE REV, CMP, LDH, CBC #### [address] Commemt1 Glu2: Cleaned Meter Normal [facility] Comment on above: Result Comment: PERF ORMED BY: [place] [address] PATHOLOGIST ENGINEERING TEAM SUPERVISOR LE MACE M.D. Performed By: #### P ATH SLIDE REV, CMP, LDH, CBC #### [address] Glucose [Mass/Vol] 188 mg/dL Normal [facility] Comment on above: Result Comment: [place] Glucose Reference Range is dependent on time and content of last meal. Glucose of more than 200 mg/dL in a nonstressed, ambulatory subject supports the diagnosis of Diabetes Mellitus. Performed By: #### P ATH SLIDE REV, CMP, LDH, CBC #### [address] Commemt1 Glu2: Cleaned Meter Normal [facility] Comment on above: Result Comment: PERF ORMED BY: [place] [address] PATHOLOGIST ENGINEERING TEAM SUPERVISOR LE MACE M.D. Performed By: #### P ATH SLIDE REV, CMP, LDH, CBC #### [facility] [address] Glucose [Mass/Vol] 192 mg/dL Normal [facility] Comment on above: Result Comment: [place] Glucose Reference Range is dependent on time and content of last meal. Glucose of more than 200 mg/dL in a nonstressed, ambulatory subject supports the diagnosis of Diabetes Mellitus. Performed By: #### P ATH SLIDE REV, CMP, LDH, CBC #### [facility] [address] Glucose [Mass/Vol] 210 mg/dL Normal [facility] Comment on above: Result Comment: [place] Glucose Reference Range is dependent on time and content of last meal. Glucose of more than 200 mg/dL in a nonstressed, ambulatory subject supports the diagnosis of Diabetes Mellitus. PERFORMED BY: [place] [address] PATHOLOGIST ENGINEERING TEAM SUPERVISOR LE MACE M.D. Performed By: #### G HERNÁN #### Point of Care testing , Lipid Panelon 04-29-2024 Cholesterol [Mass/Vol] 106 mg/dL Low 140-200 [facility] Comment on above: Order Comment: FASTI NG N Result Comment: Chol less than 200 mg/dl low risk Chol 201-239 mg/dl borderline risk Chol 240 mg/dl and greater high risk Performed By: #### P ATH SLIDE REV, CMP, LDH, CBC #### [facility] [address] Cholesterol in HDL [Mass/Vol] 31 mg/dL Normal 23-92 [facility] Comment on above: Order Comment: FASTI NG N Result Comment: HDL CHOL ATP-III CLASSIFICATION Cardiovascular Risk HDL > or equal to 60 mg/dL LOW HDL < 40 mg/dL HIGH Performed By: #### P ATH SLIDE REV, CMP, LDH, CBC #### [facility] [address] Cholesterol.total/Monica sterol in HDL [Mass ratio] 3.4 {ratio} Normal <5.0 [facility] Comment on above: Order Comment: FASTI NG N Result Comment: PERF ORMED BY: [place] [address] PATHOLOGIST ENGINEERING TEAM SUPERVISOR EL MACE M.D. Performed By: #### P ATH SLIDE REV, CMP, LDH, CBC #### [address] LDL Cholesterol,Calculated 45 mg/dL Normal 0-100 [facility] Comment on above: Order Comment: FASTI NG N Result Comment: LDL ATP III CLASSIFICATION LDL less than 100 mg/dL Optimal LDL 100-129 mg/dL Near or above optimal LDL 130-159 mg/dL Borderline high LDL 160-189 mg/dL High LDL greater than 189 mg/dL Very high Performed By: #### P ATH SLIDE REV, CMP, LDH, CBC #### [address] Triglyceride w/Reflex 151 mg/dL High 0-149 [facility] Comment on above: Order Comment: FASTI NG N Result Comment: TRIG ATP III CLASSIFICATION TRIG less than 150 mg/dL Normal TRIG 150-199 mg/dL Borderline high TRIG 200-500 mg/dL High TRIG greater than 500 mg/dL Very high Standard traceable to the Center for Disease Conrtrol and Prevention (CDC) test method. Performed By: #### P ATH SLIDE REV, CMP, LDH, CBC #### [address] VLDL CHOLESTEROL 30 mg/dL Normal [facility] Comment on above: Order Comment: FASTI NG N Performed By: #### P ATH SLIDE REV, CMP, LDH, CBC #### [facility] [address] No Panel InformationOrdered By: Priscilla Lang on 04-29-2024 Bedside Glucose Comment Glu2: cleaned meter [facility] Opiates [Presence] in Urine by Screen methodOrdered By: Priscilla Lang on 04-29-2024 Opiates Screen Ql (U) Opiates [Presence] in Urine by Screen method Negative [facility] Phencyclidine Screen Ql (U)O rdered By: Priscilla Lang on 04-29-2024 Phencyclidine Ql (U) Phencyclidine [Pres ence] in Urine by Screen method Negative [facility] Serum or plasma total choles terol/high density lipoprotein (HDL) cholesterol mass ratOrdered By: Jori Hearn on 04-29-2024 Cholesterol.total/Monica sterol in HDL [Mass ratio] Serum or plasma total cholesterol/high density lipoprotein (HDL) cholesterol mass rat <5.0 [facility] Triglyceride [Mass/volume] i n Serum or PlasmaOrdered By: Jori Hearn on 04-29-2024 Triglyceride [Mass/Vol] Triglyceride [Mass/volume] in Serum or Plasma High 0-149 [facility] Comment on above: TRIG ATP III CLASSIF ICATIONTRIG less than 150 mg/dL NormalTRIG 150-199 mg/dL Borderline highTRIG 200-500 mg/dL High TRIG greater than 500 mg/dL Very highStandard traceable to the Center for Disease Conrtrol and Prevention (CDC) test method. Urine Cultureon 04-29-2024 Bacteria identified Cx Nom (U) 15,000 colonies/ml mixed bacterial skin contaminants 2 Days PERFORMED BY: [place] [address] PATHOLOGIST ENGINEERING TEAM SUPERVISOR LE MACE M.D. Normal [facility] Comment on above: Performed By: #### P ATH SLIDE REV, CMP, LDH, CBC #### [address] Urine cultureOrdered By: Bhargav Lang on 04-29-2024 Bacteria identified Cx Nom (U) Urine culture [facility] Bacteria identified Cx Nom (U) Urine culture [facility] Alanine aminotransferase [En zymatic activity/volume] in Serum or PlasmaOrdered By: Wesley Villafuerte on 04-28-2024 ALT [Catalytic activity/Vol] Alanine aminotransferase [Enzymatic activity/volume] in Serum or Plasma [facility] Albumin [Mass/volume] in Ser um or Plasma by Bromocresol green (BCG) dye binding methoOrdered By: Wesley Villafuerte on 04-28-2024 Albumin BCG dye [Mass/Vol] Albumin [Mass/volume] in Serum or Plasma by Bromocresol green (BCG) dye binding metho 3.5-5.7 [facility] Alkaline phosphatase [Enzyma tic activity/volume] in Serum or PlasmaOrdered By: Wesley Villafuerte on 04-28-2024 ALP [Catalytic activity/Vol] Alkaline phosphatase [Enzymatic activity/volume] in Serum or Plasma 34-104 [facility] Anisocytosis LM Ql (Bld)Orde red By: Wesley Villafuerte on 04-28-2024 Anisocytosis Ql (Bld) Anisocytosis [Pres ence] in Blood by Light microscopy [facility] Appearance of UrineOrdered B y: Wesley Villafuerte on 04-28-2024 Appearance (U) Urine appearance Clear [facility] Aspartate aminotransferase [ Enzymatic activity/volume] in Serum or PlasmaOrdered By: Wesley Villafuerte on 04-28-2024 AST [Catalytic activity/Vol] Aspartate aminotransferase [Enzymatic activity/volume] in Serum or Plasma 13-39 [facility] B-Type Natriuretic Peptideon 04-28-2024 Natriuretic peptide B (Bld) [Mass/Vol] 25.0 pg/mL Normal 5-100 [facility] Comment on above: Result Comment: PERF ORMED BY: [place] [address] PATHOLOGIST ENGINEERING TEAM SUPERVISOR LE MACE M.D. Performed By: #### P ATH SLIDE REV, CMP, LDH, CBC #### [address] Bacteria [Presence] in Urine by AutomatedOrdered By: Wesley Villafuerte on 04-28-2024 Bacteria Auto Ql (U) Bacteria [Presence] in Urine by Automated None Seen [facility] Basophils Auto (Bld) [#/Vol] Ordered By: Wesley Villafuerte on 04-28-2024 Basophils (Bld) [#/Vol] Automated basophil count 0.0-0.2 [facility] Basophils/100 WBC Auto (Bld) Ordered By: Wesley Villafuerte on 04-28-2024 Basophils/100 WBC (Bld) Automated basophil % . [facility] Bilirubin Test strip Ql (U)O rdered By: Wesley Villafuerte on 04-28-2024 Bilirubin Ql (U) Bilirubin.total [Presence] in Urine by Test strip Negative [facility] Bilirubin.total [Mass/volume ] in Serum or PlasmaOrdered By: Wesley Villafuerte on 04-28-2024 Bilirubin [Mass/Vol] Bilirubin.total [Mass/volume] in Serum or Plasma 0.3-1.0 [facility] BioFire Not Detectedon 04-28 BioFire Not Detected Not detected Normal Not Detecte [facility] Comment on above: Result Comment: This is a duplicate RP2.1 COVID (PCR) result to be used for statistical tracking purpose only. PERFORMED BY: [place] [address] PATHOLOGIST ENGINEERING TEAM SUPERVISOR LE MACE M.D. Performed By: #### P ATH SLIDE REV, CMP, LDH, CBC #### [address] COVID-19 Detected/Not Detect edOrdered By: Wesley Villafuerte on 04-28-2024 SARS-CoV-2 (COVID-19) RNA TEJINDER+non-probe Ql (Nph) Not detected Not Detecte [facility] Comment on above: This is a duplicate RP2.1 COVID (PCR) result to be used for statistical tracking purpose only. CT angio headon 04-28-2024 CT angio head [facility] [place] [address] [place] [address] CT Scan Report Signed Patient: Taye Gay MR#: [id number] 19 : 1955 Acct:[id number] Age/Sex: 68 / F ADM Date: 04/28/24 Loc: ER Room: Type: [facility] ER Attending Dr: Copies to: Wesley Villafuerte PA-C Ordering Provider: Wesley Villafuerte PA-C Date of Service: 04/28/24 CT/CT angio head: weakness ([id number]) CT/CT angio neck: weakness ([id number]) CT/CT head/brain wo con: weakness CT head/brain [...] mass effects, or evidence of acute ischemia. The ventricular system is normal in size. The brainstem and the cerebellum are unremarkable. The visualized intraorbital contents and the visualized soft tissue in the infratemporal spaces show no abnormality. Mild mucosal thickening is noted in the left sphenoid sinus. The osseous structures in the skull base and the calvarium show no acute abnormality. CTA HEAD: The superior cerebellar arteries, posterior inferior cerebellar arteries, and the basilar artery are within normal limits. The posterior cerebral arteries are unremarkable. Calcified plaque is noted in the intracranial [...] are noted in the cervical spine. No acute bony abnormalities are identified. The paraspinous soft tissues are within normal limits. Calcified and noncalcified hypoattenuating nodules are noted in the thyroid possibly relating to multinodular goiter. CT/CT head/brain wo con IMPRESSION: No acute intracranial pathology. No evidence of focal stenosis, aneurysmal dilatation, dissection or occlusion. Impression dictated by: Oz Bowling M.D.04/28/2024 9:44 PM Dictation Location: [place] [address] Transcribed By: AMY 04/28/242143 Dictated By: Oz Bowling II, MD 04/28/242129 Signed By: 04/28/242143 Normal [facility] Calcium [Mass/volume] in Ser um or PlasmaOrdered By: Wesley Villafuerte on 04-28-2024 Calcium [Mass/Vol] Calcium [Mass/volume ] in Serum or Plasma 8.6-10.3 [facility] Carbon dioxide, total [Moles /volume] in Serum or PlasmaOrdered By: Wesley Villafuerte on 04-28-2024 CO2 [Moles/Vol] Carbon dioxide, tota l [Moles/volume] in Serum or Plasma 21.0-31.0 [facility] Chloride [Moles/volume] in S elliot or PlasmaOrdered By: Wesley Villafuerte on 04-28-2024 Chloride [Moles/Vol] Chloride [Moles/vol ume] in Serum or Plasma 98-107 [facility] Color Auto (U)Ordered By: Colin Villafuerte on 04-28-2024 Color (U) Color of Urine by Auto Yellow [facility] Comprehensive Metabolic Pane juan 04-28-2024 Albumin [Mass/Vol] 3.7 g/dL Normal 3.5-5.7 [facility] Comment on above: Performed By: #### P ATH SLIDE REV, CMP, LDH, CBC #### [address] Albumin/Globulin [Mass ratio] 1.2 {ratio} Normal [facility] Comment on above: Performed By: #### P ATH SLIDE REV, CMP, LDH, CBC #### [facility] [address] [place] [id number] [place] ALP [Catalytic activity/Vol] 86 U/L Normal 34-104 [facility] Comment on above: Performed By: #### P ATH SLIDE REV, CMP, LDH, CBC #### [place] [id number] [facility] ALT [Catalytic activity/Vol] 20 U/L Normal 7-52 [facility] Comment on above: Performed By: #### P ATH SLIDE REV, CMP, LDH, CBC #### [address] Anion gap [Moles/Vol] 12.7 mmol/L Normal 6.0-15.0 [facility] Comment on above: Performed By: #### P ATH SLIDE REV, CMP, LDH, CBC #### [address] AST [Catalytic activity/Vol] 25 U/L Normal 13-39 [facility] Comment on above: Performed By: #### P ATH SLIDE REV, CMP, LDH, CBC #### [address] Bilirubin [Mass/Vol] 0.3 mg/dL Normal 0.3-1.0 [facility] Comment on above: Performed By: #### P ATH SLIDE REV, CMP, LDH, CBC #### [address] Calcium [Mass/Vol] 9.7 mg/dL Normal 8.6-10.3 [facility] Comment on above: Performed By: #### P ATH SLIDE REV, CMP, LDH, CBC #### [address] Chloride [Moles/Vol] 104 mmol/L Normal 98-107 [facility] Comment on above: Performed By: #### P ATH SLIDE REV, CMP, LDH, CBC #### [address] CO2 [Moles/Vol] 24.2 mmol/L Normal 21.0-31.0 [facility] Comment on above: Performed By: #### P ATH SLIDE REV, CMP, LDH, CBC #### [place] [address] [place] Creatinine [Mass/Vol] 0.85 mg/dL Normal 0.60-1.20 [facility] Comment on above: Performed By: #### P ATH SLIDE REV, CMP, LDH, CBC #### [place] [address] [place] Creatinine Clr Calc Pharmacy 77.21 Normal [facility] Comment on above: Performed By: #### P ATH SLIDE REV, CMP, LDH, CBC #### [address] GFR/1.73 sq M.predicted MDRD (S/P/Bld) [Vol rate/Area] mL/min/{1.73_m2} Normal [facility] Comment on above: Performed By: #### P ATH SLIDE REV, CMP, LDH, CBC #### [address] Globulin (S) [Mass/Vol] 3.1 g/dL Normal [facility] Comment on above: Performed By: #### P ATH SLIDE REV, CMP, LDH, CBC #### [address] Glucose [Mass/Vol] 231 mg/dL High 70-100 [facility] Comment on above: Result Comment: [facility] Glucose Reference Range is dependent on time and content of last meal. Glucose of more than 200 mg/dL in a nonstressed, ambulatory subject supports the diagnosis of Diabetes Mellitus. ADA recommended reference range Performed By: #### P ATH SLIDE REV, CMP, LDH, CBC #### [address] Potassium [Moles/Vol] 3.9 mmol/L Normal 3.5-5.1 [facility] Comment on above: Result Comment: Hemo lysis is present at a level that could interfere with the result. Contact lab if redraw is required Performed By: #### P ATH SLIDE REV, CMP, LDH, CBC #### [address] Protein [Mass/Vol] 6.8 g/dL Normal 6.4-8.9 [facility] Comment on above: Performed By: #### P ATH SLIDE REV, CMP, LDH, CBC #### [address] Sodium [Moles/Vol] 137 mmol/L Normal 136-145 [facility] Comment on above: Performed By: #### P ATH SLIDE REV, CMP, LDH, CBC #### [address] [place] [address] [place] Urea nitrogen [Mass/Vol] 11 mg/dL Normal 7-25 [facility] Comment on above: Performed By: #### P ATH SLIDE REV, CMP, LDH, CBC #### [facility] [address] [place] [address] [place] Creatinine [Mass/volume] in Serum or PlasmaOrdered By: Wesley Villafuerte on 04-28-2024 Creatinine [Mass/Vol] Creatinine [Mass/v olume] in Serum or Plasma 0.60-1.20 [facility] Dipstick and Microscopicon 1 Appearance (U) Clear Normal Clear [facility] Comment on above: Order Comment: Name Collection Type:: Clean-Voided Midstream Performed By: #### A DDONUAPLUS #### [place] [address] [place] Bacteria,Urine Rare Normal None Seen [facility] Comment on above: Order Comment: Name Collection Type:: Clean-Voided Midstream Performed By: #### A DDONUAPLUS #### [place] [address] [place] Bilirubin,Urine Negative Normal Negative [facility] Comment on above: Order Comment: Name Collection Type:: Clean-Voided Midstream Performed By: #### A DDONUAPLUS #### [place] [address] [place] Budding Yeast,Urine Rare High None Seen [facility] Comment on above: Order Comment: Name Collection Type:: Clean-Voided Midstream Result Comment: PERF ORMED BY: [place] [address] PATHOLOGIST ENGINEERING TEAM SUPERVISOR LE MACE M.D. Performed By: #### A DDONUAPLUS #### [place] [address] [place] Color (U) Light-Yellow Normal Yellow [facility] Comment on above: Order Comment: Name Collection Type:: Clean-Voided Midstream Performed By: #### A DDONUAPLUS #### [facility] [address] [place] [address] [place] Glucose Ql (U) >= High Normal [facility] Comment on above: Order Comment: Name Collection Type:: Clean-Voided Midstream Performed By: #### A DDONUAPLUS #### [facility] [address] [place] [address] [place] Hyaline Casts,Urine 0 [LPF] Normal 0-8 [facility] Comment on above: Order Comment: Name Collection Type:: Clean-Voided Midstream Performed By: #### A DDONUAPLUS #### [address] Ketones Ql (U) Negative Normal Negative [facility] Comment on above: Order Comment: Name Collection Type:: Clean-Voided Midstream Performed By: #### A DDONUAPLUS #### [address] Leukocyte esterase Test strip Ql (U) Negative Normal Negative [facility] Comment on above: Order Comment: Name Collection Type:: Clean-Voided Midstream Performed By: #### A DDONUAPLUS #### [place] [address] [place] Nitrite,Urine Negative Normal Negative [facility] Comment on above: Order Comment: Name Collection Type:: Clean-Voided Midstream Performed By: #### A DDONUAPLUS #### [place] [address] [place] Occult Blood,Urine 2+ High Negative [facility] Comment on above: Order Comment: Name Collection Type:: Clean-Voided Midstream Result Comment: PERF ORMED BY: [place] [address] PATHOLOGIST ENGINEERING TEAM SUPERVISOR LE MACE M.D. Performed By: #### A DDONUAPLUS #### [place] [address] [place] pH (U) 5.5 [pH] Normal 5.0-9.0 [facility] Comment on above: Order Comment: Name Collection Type:: Clean-Voided Midstream Performed By: #### A DDONUAPLUS #### [place] [address] [place] Protein,Urine Negative Normal Negative [facility] Comment on above: Order Comment: Name Collection Type:: Clean-Voided Midstream Performed By: #### A DDONUAPLUS #### [place] [address] [place] RBC,Urine 10 [HPF] High 0-4 [facility] Comment on above: Order Comment: Name Collection Type:: Clean-Voided Midstream Performed By: #### A DDONUAPLUS #### [place] [address] [place] Specificy [place],Urine 1.038 High 1.00 1-1.03 0 [facility] Comment on above: Order Comment: Name Collection Type:: Clean-Voided Midstream Performed By: #### A DDONUAPLUS #### [address] Squamous Epithelial Cell,Urine 3 [HPF] High 0-2 [facility] Comment on above: Order Comment: Name Collection Type:: Clean-Voided Midstream Performed By: #### A DDONUAPLUS #### [address] Urobilinogen,Urine Normal Normal Normal [facility] Comment on above: Order Comment: Name Collection Type:: Clean-Voided Midstream Performed By: #### A DDONUAPLUS #### [place] [address] [place] WBC,Urine 5 [HPF] High 0-4 [facility] Comment on above: Order Comment: Name Collection Type:: Clean-Voided Midstream Performed By: #### A DDONUAPLUS #### [address] ECG 12 lead ECGon 04-28-2024 ECG 12 lead ECG [facility] Main [place] [address] [place] [address] Electrocardiograph Report Signed Patient: Taye Gay MR#: [id number] [birth year] : 1955 Acct:[id number] Age/Sex: 68 / F ADM Date: 04/28/24 Loc: Room: [address] [place] [address] Type: ADM IN Attending Dr: Jori Hearn DO Ordering Provider: Wesley Villafuerte PA-C Date of Service: 04/28/24 ECG/ECG 12 lead ECG: Neuro Symptoms/Deficit Copies to: Test Reason : Blood Pressure : */* mmHG Vent. Rate : 77 BPM Atrial Rate : 77 BPM P-R Int : 182 ms QRS Dur : 84 ms QT Int : 388 ms P-R-T Axes : 77 34 34 degrees QTcB Int : 439 ms Normal sinus rhythm Normal ECG When compared with ECG of 27-Apr-2024 14:27, No significant change was found Confirmed by JORI BATISTA MD ([id number]) on 04/29/2024 1:44:38 AM Referred By: Electronically Signed By: JORI BATISTA MD Transcribed By: MUS Signed By Jori Batista MD 05/23 0144 Normal [facility] Eosinophils Auto (Bld) [#/Vo l]Ordered By: Wesley Villafuerte on 04-28-2024 Eosinophils (Bld) [#/Vol] Automated eosinophil count 0.0-0.45 [facility] Eosinophils/100 WBC Auto (Bl d)Ordered By: Wesley Villafuerte on 04-28-2024 Eosinophils/100 WBC (Bld) Automated eosinophil % . [facility] Epithelial cells.squamous [# /area] in Urine sediment by Automated countOrdered By: Wesley Villafuerte on 04-28-2024 Epithelial cells.squamous Auto (Urine sed) [#/Area] Epithelial cells.squamous [#/area] in Urine sediment by Automated count High 0-2 [facility] Erythrocyte distribution wid th Auto (RBC) [Ratio]Ordered By: Wesley Villafuerte on 04-28-2024 Erythrocyte distribution width (RBC) [Ratio] Erythrocyte distribution width [Ratio] by Automated count High 11.9-15.3 [facility] Erythrocyte morphology findi ng [Identifier] in BloodOrdered By: Wesley Villafuerte on 04-28-2024 RBC morphology finding Nom (Bld) RBC morphology [facility] Erythrocytes [#/area] in Uri ne sediment by Automated countOrdered By: Wesley Villafuerte on 04-28-2024 RBC Auto (Urine sed) [#/Area] Erythrocytes [#/area] in Urine sediment by Automated count High 0-4 [facility] Globulin Calc (S) [Mass/Vol] Ordered By: Wesley Villafuerte on 04-28-2024 Globulin (S) [Mass/Vol] Serum globulin measurement by calculation (mass/volume) [facility] Glucose [Mass/volume] in Ser um or PlasmaOrdered By: Wesley Villafuerte on 04-28-2024 Glucose [Mass/Vol] Glucose [Mass/volume ] in Serum or Plasma High 70-100 [facility] Comment on above: ADA recommended [...] in Urine by Test strip High Normal [facility] HbA1c HPLC (Bld) [Mass fract ion]on 04-28-2024 HbA1c (Bld) [Mass fraction] Hemoglobin A1c/Hemoglobin.total in Blood by HPLC [facility] Hematocrit Auto (Bld) [Volum e fraction]Ordered By: Wesley Villafuerte on 04-28-2024 Hematocrit (Bld) [Volume fraction] Hematocrit [Volume Fraction] of Blood by Automated count High 34.0-46.4 [facility] Hemoglobin Test strip Ql (U) Ordered By: Wesley Villafuerte on 04-28-2024 Hemoglobin Ql (U) Hemoglobin [Presence ] in Urine by Test strip High Negative [facility] Hemoglobin [Mass/volume] in BloodOrdered By: Wesley Villafuerte on 04-28-2024 Hemoglobin (Bld) [Mass/Vol] Hemoglobin [Mass/volume] in Blood High 11.8-15.4 [facility] Hyaline casts [#/area] in Ur ine sediment by Automated countOrdered By: Wesley Villafuerte on 04-28-2024 Hyaline casts Auto (Urine sed) [#/Area] Hyaline casts [#/area] in Urine sediment by Automated count 0-8 [facility] INR in Platelet poor plasma by Coagulation assayOrdered By: Wesley Villafuerte on 04-28-2024 INR Coag (PPP) [Relative time] INR in Platelet poor plasma by Coagulation assay [facility] Comment on above: INR Therapeutic [...] i n Urine by Test strip Negative [facility] Leukocyte esterase [Presence ] in Urine by Test stripOrdered By: Wesley Villafuerte on 04-28-2024 Leukocyte esterase Test strip Ql (U) Leukocyte esterase [Presence] in Urine by Test strip Negative [facility] Leukocytes [#/area] in Urine sediment by Automated countOrdered By: Wesley Villafuerte on 04-28-2024 WBC Auto (Urine sed) [#/Area] Leukocytes [#/area] in Urine sediment by Automated count High 0-4 [facility] Leukocytes [#/volume] correc deepika for nucleated erythrocytes in Blood by Automated counOrdered By: Wesley Villafuerte on 04-28-2024 WBC corrected for nucl RBC Auto (Bld) [#/Vol] Leukocytes [#/volume] corrected for nucleated erythrocytes in Blood by Automated coun 3.8-11.6 [facility] Lymphocytes Auto (Bld) [#/Vo l]Ordered By: Wesley Villafuerte on 04-28-2024 Lymphocytes (Bld) [#/Vol] Lymphocytes [#/volume] in Blood by Automated count 1.00-4.8 [facility] Lymphocytes/100 WBC Auto (Bl d)Ordered By: Wesley Villafuerte on 04-28-2024 Lymphocytes/100 WBC (Bld) Lymphocytes/100 leukocytes in Blood by Automated count . [facility] MCH Auto (RBC) [Entitic mass ]Ordered By: Wesley Villafuerte on 04-28-2024 MCH (RBC) [Entitic mass] MCH [Entitic mass] by Automated count 24.7-34.3 [facility] MCHC Auto (RBC) [Mass/Vol]Or dered By: Wesley Villafuerte on 04-28-2024 MCHC (RBC) [Mass/Vol] MCHC [Mass/volume] by Automated count 32.0-35.0 [facility] MCV Auto (RBC) [Entitic vol] Ordered By: Wesley Villafuerte on 04-28-2024 MCV (RBC) [Entitic vol] MCV [Entitic vol ume] by Automated count 80-100 [facility] Magnesiumon 04-28-2024 Magnesium [Mass/Vol] 1.7 mg/dL Low 1.9-2.7 [facility] Comment on above: Result Comment: PERF ORMED BY: [place] [address] PATHOLOGIST ENGINEERING TEAM SUPERVISOR LE MACE M.D. Performed By: #### P ATH SLIDE REV, CMP, LDH, CBC #### [facility] [address] [place] [address] Magnesium [Mass/volume] in S elliot or PlasmaOrdered By: Wesley Villafuerte on 04-28-2024 Magnesium [Mass/Vol] Magnesium [Mass/vol ume] in Serum or Plasma Low 1.9-2.7 [facility] Monocyte distribution width [Entitic volume] in Blood by AutomatedOrdered By: Wesley Villafuerte on 04-28-2024 Monocyte distribution width Auto (Bld) [Entitic vol] Monocyte distribution width [Entitic volume] in Blood by Automated High 0.00-20.00 [facility] Comment on above: For adults in ED, MD W > 20.0 may be associated with a higher risk of sepsis during the first 12 hrs of hospital admission Monocytes Auto (Bld) [#/Vol] Ordered By: Wesley Villafuerte on 04-28-2024 Monocytes (Bld) [#/Vol] Automated blood monocyte count 0.0-0.8 [facility] Monocytes/100 WBC Auto (Bld) Ordered By: Wesley Villafuerte on 04-28-2024 Monocytes/100 WBC (Bld) Automated monocyte % . [facility] Natriuretic peptide B [Mass/ Vol]Ordered By: Wesley Villafuerte on 04-28-2024 Natriuretic peptide B (Bld) [Mass/Vol] BNP ser/plas 5-100 [facility] Neutrophils Auto (Bld) [#/Vo l]Ordered By: Wesley Villafuerte on 04-28-2024 Neutrophils (Bld) [#/Vol] Neutrophils [#/volume] in Blood by Automated count 1.8-7.7 [facility] Neutrophils/100 WBC Auto (Bl d)Ordered By: Wesley Villafuerte on 04-28-2024 Neutrophils/100 WBC (Bld) Automated neutrophil % . [facility] Nitrite Test strip Ql (U)Ord ered By: Wesley Villafuerte on 04-28-2024 Nitrite Ql (U) Nitrite [Presence] i n Urine by Test strip Negative [facility] No Panel InformationOrdered By: Wesley Villafuerte on 04-28-2024 Estimated GFR (CKD-EPI) > 60.0 mL/Min [facility] Creatinine Clearance (Chem 77.21 [facility] No Panel Informationon 04-28 Bedside Glucose 211 [facility] Nucleated erythrocytes [Pres ence] in Blood by Automated countOrdered By: Wesley Villafuerte on 04-28-2024 Nucleated RBC Auto Ql (Bld) Nucleated erythrocytes [Presence] in Blood by Automated count 0-0.5 [facility] Partial Thromboplastin Timeo n 04-28-2024 aPTT Coag (d) [Time] 30.0 s Normal 25.1-36.5 [facility] Comment on above: Result Comment: A he matocrit value greater than 55% may lead to inaccurate results in coagulation testing. Patients having hematocrit values >55% require a special collection tube for coagulation studies. Please contact the laboratory at [phone] for redraw instructions. PERFORMED BY: [address] [address] PATHOLOGIST ENGINEERING TEAM SUPERVISOR LE MACE M.D. Performed By: #### P ATH SLIDE REV, CMP, LDH, CBC #### [address] Platelet adequacy [Presence] in Blood by Light microscopyOrdered By: Wesley Villafuerte on 04-28-2024 Platelets LM Ql (Bld) Platelet adequacy [Presence] in Blood by Light microscopy Normal [facility] Platelet mean volume Auto (B ld) [Entitic vol]Ordered By: Wesley Villafuerte on 04-28-2024 Platelet mean volume (Bld) [Entitic vol] Platelet mean volume [Entitic volume] in Blood by Automated count 6.3-10.7 [facility] Platelet morphology finding [Identifier] in BloodOrdered By: Wesley Villafuerte on 04-28-2024 Platelet morphology finding Nom (Bld) Platelet morphology finding [Identifier] in Blood Normal [facility] Platelets Auto (Bld) [#/Vol] Ordered By: Wesley Villafuerte on 04-28-2024 Platelets (Bld) [#/Vol] Platelets [#/vol ume] in Blood by Automated count Low 150-450 [facility] Polychromasia [Presence] in Blood by Light microscopyOrdered By: Wesley Villafuerte on 04-28-2024 Polychromasia LM Ql (Bld) Polychromasia [Presence] in Blood by Light microscopy [facility] Potassium [Moles/volume] in Serum or PlasmaOrdered By: Wesley Villafuerte on 04-28-2024 Potassium [Moles/Vol] Potassium [Moles/v olume] in Serum or Plasma 3.5-5.1 [facility] Comment on above: Hemolysis is present at a level that could interfere with the result.Contact lab if redraw is required Protein Test strip (U) [Mass /Vol]Ordered By: Wesley Villafuerte on 04-28-2024 Protein (U) [Mass/Vol] Protein [Mass/vol ume] in Urine by Test strip Negative [facility] Protein [Mass/volume] in Ser um or PlasmaOrdered By: Wesley Villafuerte on 04-28-2024 Protein [Mass/Vol] Protein [Mass/volume ] in Serum or Plasma 6.4-8.9 [facility] Prothrombin Time INRon 04-28 INR Coag (PPP) [Relative time] 1.3 {INR} Normal [facility] Comment on above: Result [...] valves: 3 - 4.5 Performed By: #### P ATH SLIDE REV, CMP, LDH, CBC #### [facility] [address] [id number] [facility] PT Coag (PPP) [Time] 15.1 s High 9.0-12.9 [facility] Comment on above: Result Comment: A he matocrit value greater than 55% may lead to inaccurate results in coagulation testing. Patients having hematocrit values >55% require a special collection tube for coagulation studies. Please contact the laboratory at [phone] for redraw instructions. Performed By: #### P ATH SLIDE REV, CMP, LDH, CBC #### [facility] [address] [id number] [facility] Prothrombin time (PT)Ordered By: Wesley Villafuerte on 04-28-2024 PT Coag (PPP) [Time] Prothrombin time (PT) High 9.0- 12.9 [facility] Comment on above: A hematocrit value g reater than 55% may lead to inaccurate results in coagulation testing. Patients having hematocrit values >55% require a special collection tube for coagulation studies. Please contact the laboratory at [phone] for redraw instructions. RBC Auto (Bld) [#/Vol]Ordere d By: Wesley Villafuerte on 04-28-2024 RBC (Bld) [#/Vol] Erythrocytes [#/volu me] in Blood by Automated count High 3.60-5.00 [facility] Respiratory (Upper) Panel, P CRon 04-28-2024 Respiratory (Upper) Panel, PCR Adenovirus Not detected Bordetella parapertussis Not detected Chlamydia pneumoniae Not detected Coronavirus 229E Not detected Coronavirus HKU1 Not detected Coronavirus NL63 Not detected Coronavirus OC43 Not detected Influenza A Not detected Influenza B Not detected Human Metapneumovirus Not detected Mycoplasma pneumoniae Not detected Parainfluenza Virus 1 Not detected Parainfluenza Virus 2 Not detected Parainfluenza Virus 3 Not detected Parainfluenza Virus 4 Not detected Bordetella pertussis-ptxP Not detected Human Rhino/Enterovirus Not detected Resp. Syncytial Virus Not detected COVID-19 Detected/Not Detected Not detected Blank Space ------ FLUA TEST INCLUDES Influenza A tests for the following clinically FLUA TEST INCLUDES significant subtypes: FLUA TEST INCLUDES - Influenza A FLUA TEST INCLUDES - Influenza A H1 FLUA TEST INCLUDES - Influenza A H1 2009 FLUA TEST INCLUDES - Influenza A H3 Blank Space ------ PERFORMED BY: [facility] [address] [place] [address] PATHOLOGIST ENGINEERING TEAM SUPERVISOR LE MACE M.D. Normal [facility] Comment on above: Performed By: #### R GWYN PANEL UPP., BIOFIRECOVNOTDE #### [facility] [address] Respiratory pathogens DNA an d RNA panel - Nasopharynx by TEJINDER with non-probe detectionOrdered By: Wesley Villafuerte on 04-28-2024 Respiratory pathogens DNA and RNA panel TEJINDER+non-probe (Nph) Respiratory pathogens DNA and RNA panel - Nasopharynx by TEJINDER with non-probe detection [facility] Respiratory pathogens DNA and RNA panel TEJINDER+non-probe (Nph) Respiratory pathogens DNA and RNA panel - Nasopharynx by TEJINDER with non-probe detection [facility] Scan and CBCon 04-28-2024 Anisocytosis Ql (Bld) Slight Normal [facility] Comment on above: Performed By: #### P ATH SLIDE REV, CMP, LDH, CBC #### [facility] [address] Basophils (Bld) [#/Vol] 0.1 10*3/uL Normal 0.0-0.2 [facility] Comment on above: Performed By: #### P ATH SLIDE REV, CMP, LDH, CBC #### [address] Basophils/100 WBC (Bld) 1.1 % Normal . [facility] Comment on above: Performed By: #### P ATH SLIDE REV, CMP, LDH, CBC #### [address] Eosinophils (Bld) [#/Vol] 0.3 10*3/uL Normal 0.0-0.45 [facility] Comment on above: Performed By: #### P ATH SLIDE REV, CMP, LDH, CBC #### [address] Eosinophils/100 WBC (Bld) 2.7 % Normal . [facility] Comment on above: Performed By: #### P ATH SLIDE REV, CMP, LDH, CBC #### [address] Erythrocyte distribution width (RBC) [Ratio] 15.4 % High 11.9-15.3 [facility] Comment on above: Performed By: #### P ATH SLIDE REV, CMP, LDH, CBC #### [address] Hematocrit (Bld) [Volume fraction] 48.1 % High 34.0-46.4 [facility] Comment on above: Performed By: #### P ATH SLIDE REV, CMP, LDH, CBC #### [address] Hemoglobin (Bld) [Mass/Vol] 16.0 g/dL High 11.8-15.4 [facility] Comment on above: Performed By: #### P ATH SLIDE REV, CMP, LDH, CBC #### [address] Lymphocytes (Bld) [#/Vol] 2.5 10*3/uL Normal 1.00-4.8 [facility] Comment on above: Performed By: #### P ATH SLIDE REV, CMP, LDH, CBC #### [address] Lymphocytes/100 WBC (Bld) 24.6 % Normal . [facility] Comment on above: Performed By: #### P ATH SLIDE REV, CMP, LDH, CBC #### [address] MCH (RBC) [Entitic mass] 31.7 pg Normal 24.7-34.3 [facility] Comment on above: Performed By: #### P ATH SLIDE REV, CMP, LDH, CBC #### [address] MCV (RBC) [Entitic vol] 95.1 fL Normal 80-100 [facility] Comment on above: Performed By: #### P ATH SLIDE REV, CMP, LDH, CBC #### [address] Mean Corpuscular HGB Conc 33.3 g/dL Normal 32.0-35.0 [facility] Comment on above: Performed By: #### P ATH SLIDE REV, CMP, LDH, CBC #### [address] Monocytes (Bld) [#/Vol] 0.8 10*3/uL Normal 0.0-0.8 [facility] Comment on above: Performed By: #### P ATH SLIDE REV, CMP, LDH, CBC #### [address] Monocytes/100 WBC (Bld) 20.25 % High 0.00-20.00 [facility] Comment on above: Result Comment: For adults in ED, MDW > 20.0 may be associated with a higher risk of sepsis during the first 12 hrs of hospital admission Performed By: #### P ATH SLIDE REV, CMP, LDH, CBC #### [address] Monocytes/100 WBC (Bld) 7.6 % Normal . [facility] Comment on above: Performed By: #### P ATH SLIDE REV, CMP, LDH, CBC #### [address] [address] [place] Neutrophils (Bld) [#/Vol] 6.5 10*3/uL Normal 1.8-7.7 [facility] Comment on above: Performed By: #### P ATH SLIDE REV, CMP, LDH, CBC #### [address] Neutrophils/100 WBC (Bld) 64.0 % Normal . [facility] Comment on above: Performed By: #### P ATH SLIDE REV, CMP, LDH, CBC #### [address] NRBC% 0.2 /100{WBC} Normal 0-0.5 [facility] Comment on above: Performed By: #### P ATH SLIDE REV, CMP, LDH, CBC #### [address] Platelet Estimate Decreased Normal Normal [facility] Comment on above: Performed By: #### P ATH SLIDE REV, CMP, LDH, CBC #### [address] Platelet mean volume (Bld) [Entitic vol] 9.9 fL Normal 6.3-10.7 [facility] Comment on above: Performed By: #### P ATH SLIDE REV, CMP, LDH, CBC #### [address] Platelet Morphology Normal Normal Normal [facility] Comment on above: Result Comment: PERF ORMED BY: [place] [address] PATHOLOGIST ENGINEERING TEAM SUPERVISOR LE MACE M.D. Performed By: #### P ATH SLIDE REV, CMP, LDH, CBC #### [place] [address] [place] Platelets (Bld) [#/Vol] 136 10*3/uL Low 150-450 [facility] Comment on above: Performed By: #### P ATH SLIDE REV, CMP, LDH, CBC #### [place] [address] [place] Polychromasia Slight Normal [facility] Comment on above: Performed By: #### P ATH SLIDE REV, CMP, LDH, CBC #### [address] RBC (Bld) [#/Vol] 5.06 10*6/uL High 3.60-5.00 [facility] Comment on above: Performed By: #### P ATH SLIDE REV, CMP, LDH, CBC #### [address] WBC (Bld) [#/Vol] 10.2 10*3/uL Normal 3.8-11.6 [facility] Comment on above: Performed By: #### P ATH SLIDE REV, CMP, LDH, CBC #### [address] WBC (Bld) [#/Vol] 10.9 10*3/uL Normal 3.8-11.6 [facility] Comment on above: Performed By: #### P ATH SLIDE REV, CMP, LDH, CBC #### [address] Serum or plasma albumin/glob ulin mass ratioOrdered By: Wesley Villafuerte on 04-28-2024 Albumin/Globulin [Mass ratio] Serum or plasma albumin/globulin mass ratio [facility] Serum or plasma anion gap de terminationOrdered By: Wesley Villafuerte on 04-28-2024 Anion gap [Moles/Vol] Serum or plasma an ion gap determination 6.0-15.0 [facility] Sodium [Moles/volume] in Ser um or PlasmaOrdered By: Wesley Villafuerte on 04-28-2024 Sodium [Moles/Vol] Sodium [Moles/volume ] in Serum or Plasma 136-145 [facility] Specific gravity Test strip (U) [Rel density]Ordered By: Wesley Villafuerte on 04-28-2024 Specific gravity (U) [Rel density] Specific gravity of Urine by Test strip High 1.001-1.03 0 [facility] Troponin I High Sensitivityo n 04-28-2024 Troponin I High Sensitivity 5.1 pg/mL Normal 0.0-15.0 [facility] Comment on above: Result Comment: PERF ORMED BY: [place] [address] PATHOLOGIST ENGINEERING TEAM SUPERVISOR LE MACE M.D. Performed By: #### P ATH SLIDE REV, CMP, LDH, CBC #### [facility] [address] Troponin I.cardiac [Mass/vol ume] in Serum or Plasma by Detection limit <= 0.01 ng/Ordered By: Wesley Villafuerte on 04-28-2024 Troponin I.cardiac DL <= 0.01 ng/mL [Mass/Vol] Troponin I.cardiac [Mass/volume] in Serum or Plasma by Detection limit <= 0.01 ng/ 0.0-15.0 [facility] Urea nitrogen [Mass/volume] in Serum or PlasmaOrdered By: Wesley Villafuerte on 04-28-2024 Urea nitrogen [Mass/Vol] Urea nitrogen [Mass/volume] in Serum or Plasma 7-25 [facility] Urobilinogen Test strip (U) [Mass/Vol]Ordered By: Wesley Villafuerte on 04-28-2024 Urobilinogen (U) [Mass/Vol] Urobilinogen [Mass/volume] in Urine by Test strip Normal [facility] WBC Auto (Bld) [#/Vol]Ordere d By: Wesley Villafuerte on 04-28-2024 WBC (Bld) [#/Vol] Leukocytes [#/volume ] in Blood by Automated count 3.8-11.6 [facility] X-ray reportOrdered By: Oz Bowling on 04-28-2024 Study report [facility] [address] [place] [address] [place] [address] XRay Report Signed Patient: Taye Gay MR#: [id number] : 1955 Acct:[id number] Age/Sex: 68 / F ADM Date: 4 Loc: ER Room: Type: [facility] ER Attending Dr: Copies to: Wesley [...] 9:46 PM Dictation Location: [facility]- Transcribed By: AMY 04/28/242145 Dictated By: Oz Bowling II, MD 04/28/242143 Signed By: 04/28/242145 [facility] Work Phone: XR chest 2V*on 04-28-2024 XR chest 2V* [facility] [address] [place] [address] [place] [address] XRay Report Signed Patient: Taye Gay MR#: [id number] 19 : 1955 Acct:[id number] Age/Sex: 68 / F ADM Date: 04/28/24 Loc: ER Room: Type: [facility] ER Attending Dr: Copies to: Wesley Villafuerte PA-C Ordering Provider: Wesley Villafeurte PA-C Date of Service: 04/28/24 XR/XR chest 2V*: Neuro Symptoms/Deficit XR chest 2V* 04/28/2024 7:45 PM SIGNS AND SYMPTOMS: Weakness, slurred speech PROTOCOL: Frontal and lateral radiographs of the chest COMPARISON: 09/12/2023 FINDINGS: The trachea is midline. Atherosclerotic changes are noted in the thoracic aorta. There is mild cardiomegaly. There is mild perihilar vascular prominence which may indicate volume overload. The lung parenchyma is clear, otherwise. The bony thorax is intact. XR/XR chest 2V* IMPRESSION: There is mild cardiomegaly with perihilar vascular prominence which may indicate mild volume overload/congestive heart failure. Impression dictated by: Oz Bowling M.D.04/28/2024 9:46 PM Dictation Location: [place] [address] Transcribed By: [facility] 04/28/242145 Dictated By: Oz Bowling II, MD 04/28/242143 Signed By: 04/28/242145 Normal [facility] Yeast.budding [Presence] in Urine by Computer assisted methodOrdered By: Wesley Villafuerte on 04-28-2024 Yeast.budding Computer assisted Ql (U) Yeast.budding [Presence] in Urine by Computer assisted method High None Seen [facility] aPTT in Platelet poor plasma by Coagulation assayOrdered By: Wesley Villafuerte on 04-28-2024 aPTT Coag (PPP) [Time] Activated partial thromboplastin time (aPTT) in platelet poor plasma by coagulation a 25.1-36.5 [facility] Comment on above: A hematocrit value g reater than 55% may lead to inaccurate results in coagulation testing. Patients having hematocrit values >55% require a special collection tube for coagulation studies. Please contact the laboratory at [phone] for redraw instructions. pH Test strip (U)Ordered By: Wesley Villafuerte on 04-28-2024 pH (U) pH of Urine by Test strip 5.0-9.0 [facility] ECG 12 lead ECGon 04-27-2024 ECG 12 lead ECG [facility] [place] [place] [address] Electrocardiograph Report Signed Patient: Taye Gay MR#: [id number] 19 : 1955 Acct:[id number] Age/Sex: 68 / F ADM Date: 04/27/24 Loc: ER Room: Type: [facility] ER Attending Dr: Ordering Provider: Rl Villavicencio DO Date of Service: 04/27/24 ECG/ECG 12 lead ECG: Arrhythmia/Palpitations Copies to: Test Reason : Blood Pressure : 116/61 mmHG Vent. Rate : 79 BPM Atrial Rate : 79 BPM P-R Int : 178 ms QRS Dur : 82 ms QT Int : 392 ms P-R-T Axes : 85 45 42 degrees QTcB Int : 449 ms Normal sinus rhythm Normal ECG When compared with ECG of 09-Nov-2023 22:14, No significant change was found Confirmed by RL VILLAVICENCIO DO ([id number]) on 04/28/2024 2:19:46 AM Referred By: Electronically Signed By: RL VILLAVICENCIO DO Transcribed By: [facility] Signed By Rl Villavicencio DO 0219 Normal [facility] Alanine aminotransferase [En zymatic activity/volume] in Serum or PlasmaOrdered By: Nataliya Jane on 04-14-2024 ALT [Catalytic activity/Vol] Alanine aminotransferase [Enzymatic activity/volume] in Serum or Plasma 752 [facility] Albumin [Mass/volume] in Ser um or Plasma by Bromocresol green (BCG) dye binding methoOrdered By: Nataliya Jane on 04-14-2024 Albumin BCG dye [Mass/Vol] Albumin [Mass/volume] in Serum or Plasma by Bromocresol green (BCG) dye binding metho 3.5-5.7 [facility] Alkaline phosphatase [Enzyma tic activity/volume] in Serum or PlasmaOrdered By: Nataliya Jane on 04-14-2024 ALP [Catalytic activity/Vol] Alkaline phosphatase [Enzymatic activity/volume] in Serum or Plasma 34-104 [facility] Aspartate aminotransferase [ Enzymatic activity/volume] in Serum or PlasmaOrdered By: Nataliya Jane on 04-14-2024 AST [Catalytic activity/Vol] Aspartate aminotransferase [Enzymatic activity/volume] in Serum or Plasma 13-39 [facility] Bilirubin.total [Mass/volume ] in Serum or PlasmaOrdered By: Nataliya Jane on 04-14-2024 Bilirubin [Mass/Vol] Bilirubin.total [Mass/volume] in Serum or Plasma 0.3-1.0 [facility] CBC W Auto Differential pane l (Bld)on 04-14-2024 Basophils (Bld) [#/Vol] 0.1 10*3/uL 0.0 - 0.2 10*3[facility]L [facility] WBC Manual cnt (Syn fld) 0.6 % . [facility] Eosinophils (Bld) [#/Vol] 0.3 10*3/uL 0.0 - 0.45 10*3/uL [facility] Eosinophils/100 WBC Manual cnt (Syn fld) 2.6 % . [facility] Erythrocyte distribution width (RBC) [Ratio] 15 % 11.9 - 15.3 % [facility] Hematocrit (Bld) [Volume fraction] 49.7 % High 34.0 - 46.4 % [facility] Hemoglobin (Bld) [Mass/Vol] 16.6 g/dL High 11.8 - 15.4 g/dL [facility] Interpretation and review of laboratory results Abnormal [facility] Lymphocytes (Bld) [#/Vol] 2.1 10*3/uL 1.00 - 4.8 10*3/uL [facility] Lymphocytes/100 WBC Manual cnt (Syn fld) 19.3 % . [facility] MCH (RBC) [Entitic mass] 31.2 pg 24.7 - 34.3 pg [facility] MCHC (RBC) [Mass/Vol] 33.4 g/dL 32.0 - 35.0 g/dL [facility] MCV (RBC) [Entitic vol] 93.4 fL 80 - 100 fL [facility] Monocytes (Bld) [#/Vol] 0.9 10*3/uL High 0.0 - 0.8 10*3/uL [facility] Monocytes+Macrophages/1 00 WBC Manual cnt (Syn fld) 8.7 % . [facility] Neutrophils (Bld) [#/Vol] 7.3 10*3/uL 1.8 - 7.7 10*3/uL [facility] Neutrophils/100 WBC Manual cnt (Syn fld) 68.8 % . [facility] NRBC 0.1 /100{WBC} 0 - 0.5 /100{WBC} [facility] Platelet mean volume (Bld) [Entitic vol] 8.9 fL 6.3 - 10.7 fL [facility] Platelets (Bld) [#/Vol] 167 10*3/uL 150 - 450 10*3/uL [facility] RBC LM.HPF (Urine sed) [#/Area] 5.32 10*6/uL High 3.60 - 5.00 10*6/uL [facility] WBC (Bld) [#/Vol] 10.7 10*3/uL 3.8 - 11.6 10*3/uL [facility] WBC LM.HPF (Urine sed) [#/Area] 10.7 10*3/uL 3.8 - 11.6 10*3/uL [facility] Calcium [Mass/volume] in Ser um or PlasmaOrdered By: Nataliya Lucinda on 04-14-2024 Calcium [Mass/Vol] Calcium [Mass/volume ] in Serum or Plasma 8.6-10.3 [facility] Carbon dioxide, total [Moles /volume] in Serum or PlasmaOrdered By: Nataliya Lucinda on 04-14-2024 CO2 [Moles/Vol] Carbon dioxide, tota l [Moles/volume] in Serum or Plasma 21.0-31.0 [facility] Chloride [Moles/volume] in S elliot or PlasmaOrdered By: Nataliya Gaonaoren on 04-14-2024 Chloride [Moles/Vol] Chloride [Moles/vol ume] in Serum or Plasma 98-107 [facility] Complete Blood Count Auto Di ffon 04-14-2024 Basophils (Bld) [#/Vol] 0.1 10*3/uL Normal 0.0-0.2 [facility] Comment on above: Result Comment: PERF ORMED BY: [place] [address] PATHOLOGIST ENGINEERING TEAM SUPERVISOR LE MACE M.D. Performed By: #### P ATH SLIDE REV, CMP, LDH, CBC #### [facility] [address] [place] [address] Basophils/100 WBC (Bld) 0.6 % Normal . [facility] Comment on above: Performed By: #### P ATH SLIDE REV, CMP, LDH, CBC #### [facility] [address] [place] [address] [place] Eosinophils (Bld) [#/Vol] 0.3 10*3/uL Normal 0.0-0.45 [facility] Comment on above: Performed By: #### P ATH SLIDE REV, CMP, LDH, CBC #### [place] [address] [place] Eosinophils/100 WBC (Bld) 2.6 % Normal . [facility] Comment on above: Performed By: #### P ATH SLIDE REV, CMP, LDH, CBC #### [address] Erythrocyte distribution width (RBC) [Ratio] 15.0 % Normal 11.9-15.3 [facility] Comment on above: Performed By: #### P ATH SLIDE REV, CMP, LDH, CBC #### [address] Hematocrit (Bld) [Volume fraction] 49.7 % High 34.0-46.4 [facility] Comment on above: Performed By: #### P ATH SLIDE REV, CMP, LDH, CBC #### [address] Hemoglobin (Bld) [Mass/Vol] 16.6 g/dL High 11.8-15.4 [facility] Comment on above: Performed By: #### P ATH SLIDE REV, CMP, LDH, CBC #### [address] Lymphocytes (Bld) [#/Vol] 2.1 10*3/uL Normal 1.00-4.8 [facility] Comment on above: Performed By: #### P ATH SLIDE REV, CMP, LDH, CBC #### [address] Lymphocytes/100 WBC (Bld) 19.3 % Normal . [facility] Comment on above: Performed By: #### P ATH SLIDE REV, CMP, LDH, CBC #### [address] MCH (RBC) [Entitic mass] 31.2 pg Normal 24.7-34.3 [facility] Comment on above: Performed By: #### P ATH SLIDE REV, CMP, LDH, CBC #### [address] MCV (RBC) [Entitic vol] 93.4 fL Normal 80-100 [facility] Comment on above: Performed By: #### P ATH SLIDE REV, CMP, LDH, CBC #### [address] Mean Corpuscular HGB Conc 33.4 g/dL Normal 32.0-35.0 [facility] Comment on above: Performed By: #### P ATH SLIDE REV, CMP, LDH, CBC #### [address] Monocytes (Bld) [#/Vol] 0.9 10*3/uL High 0.0-0.8 [facility] Comment on above: Performed By: #### P ATH SLIDE REV, CMP, LDH, CBC #### [address] Monocytes/100 WBC (Bld) 8.7 % Normal . [facility] Comment on above: Performed By: #### P ATH SLIDE REV, CMP, LDH, CBC #### [address] Neutrophils (Bld) [#/Vol] 7.3 10*3/uL Normal 1.8-7.7 [facility] Comment on above: Performed By: #### P ATH SLIDE REV, CMP, LDH, CBC #### [address] Neutrophils/100 WBC (Bld) 68.8 % Normal . [facility] Comment on above: Performed By: #### P ATH SLIDE REV, CMP, LDH, CBC #### [address] NRBC% 0.1 /100{WBC} Normal 0-0.5 [facility] Comment on above: Performed By: #### P ATH SLIDE REV, CMP, LDH, CBC #### [address] Platelet mean volume (Bld) [Entitic vol] 8.9 fL Normal 6.3-10.7 [facility] Comment on above: Performed By: #### P ATH SLIDE REV, CMP, LDH, CBC #### [address] Platelets (Bld) [#/Vol] 167 10*3/uL Normal 150-450 [facility] Comment on above: Performed By: #### P ATH SLIDE REV, CMP, LDH, CBC #### [address] RBC (Bld) [#/Vol] 5.32 10*6/uL High 3.60-5.00 [facility] Comment on above: Performed By: #### P ATH SLIDE REV, CMP, LDH, CBC #### [address] WBC (Bld) [#/Vol] 10.7 10*3/uL Normal 3.8-11.6 [facility] Comment on above: Performed By: #### P ATH SLIDE REV, CMP, LDH, CBC #### [address] Comprehensive Metabolic Pane juan 04-14-2024 Albumin [Mass/Vol] 4.1 g/dL Normal 3.5-5.7 [facility] Comment on above: Performed By: #### P ATH SLIDE REV, CMP, LDH, CBC #### [address] Albumin/Globulin [Mass ratio] 1.2 {ratio} Normal [facility] Comment on above: Performed By: #### P ATH SLIDE REV, CMP, LDH, CBC #### [address] ALP [Catalytic activity/Vol] 92 U/L Normal 34-104 [facility] Comment on above: Performed By: #### P ATH SLIDE REV, CMP, LDH, CBC #### [address] ALT [Catalytic activity/Vol] 20 U/L Normal 7-52 [facility] Comment on above: Performed By: #### P ATH SLIDE REV, CMP, LDH, CBC #### [address] Anion gap [Moles/Vol] 16.1 mmol/L High 6.0-15.0 [facility] Comment on above: Performed By: #### P ATH SLIDE REV, CMP, LDH, CBC #### [address] AST [Catalytic activity/Vol] 26 U/L Normal 13-39 [facility] Comment on above: Performed By: #### P ATH SLIDE REV, CMP, LDH, CBC #### [address] Bilirubin [Mass/Vol] 0.6 mg/dL Normal 0.3-1.0 [facility] Comment on above: Performed By: #### P ATH SLIDE REV, CMP, LDH, CBC #### [address] Calcium [Mass/Vol] 10.0 mg/dL Normal 8.6-10.3 [facility] Comment on above: Performed By: #### P ATH SLIDE REV, CMP, LDH, CBC #### [address] Chloride [Moles/Vol] 101 mmol/L Normal 98-107 [facility] Comment on above: Performed By: #### P ATH SLIDE REV, CMP, LDH, CBC #### [address] CO2 [Moles/Vol] 26.9 mmol/L Normal 21.0-31.0 [facility] Comment on above: Performed By: #### P ATH SLIDE REV, CMP, LDH, CBC #### [address] Creatinine [Mass/Vol] 0.83 mg/dL Normal 0.60-1.20 [facility] Comment on above: Performed By: #### P ATH SLIDE REV, CMP, LDH, CBC #### [address] Creatinine Clr Calc Pharmacy 78.05 Normal [facility] Comment on above: Performed By: #### P ATH SLIDE REV, CMP, LDH, CBC #### [address] [place] [address] [place] GFR/1.73 sq M.predicted MDRD (S/P/Bld) [Vol rate/Area] mL/min/{1.73_m2} Normal [facility] Comment on above: Performed By: #### P ATH SLIDE REV, CMP, LDH, CBC #### [facility] [address] [place] [address] [place] Globulin (S) [Mass/Vol] 3.3 g/dL Normal T [facility] Comment on above: Performed By: #### P ATH SLIDE REV, CMP, LDH, CBC #### [place] [address] [place] Glucose [Mass/Vol] 169 mg/dL High 70-100 [facility] Comment on above: Result Comment: [facility] Glucose Reference Range is dependent on time and content of last meal. Glucose of more than 200 mg/dL in a nonstressed, ambulatory subject supports the diagnosis of Diabetes Mellitus. ADA recommended reference range Performed By: #### P ATH SLIDE REV, CMP, LDH, CBC #### [place] [address] [place] Potassium [Moles/Vol] 4.0 mmol/L Normal 3.5-5.1 [facility] Comment on above: Performed By: #### P ATH SLIDE REV, CMP, LDH, CBC #### [place] [address] [place] Protein [Mass/Vol] 7.4 g/dL Normal 6.4-8.9 [facility] Comment on above: Performed By: #### P ATH SLIDE REV, CMP, LDH, CBC #### [place] [address] [place] Sodium [Moles/Vol] 140 mmol/L Normal 136-145 [facility] Comment on above: Performed By: #### P ATH SLIDE REV, CMP, LDH, CBC #### [place] [address] [place] Urea nitrogen [Mass/Vol] 8 mg/dL Normal 7-25 [facility] Comment on above: Performed By: #### P ATH SLIDE REV, CMP, LDH, CBC #### [facility] [address] Comprehensive metabolic pane [facility] 04-14-2024 Albumin [Mass/Vol] 4.1 g/dL 3.5 - 5.7 g/dL [facility] Albumin/Globulin [Mass ratio] 1.2 {ratio} [facility] ALP [Catalytic activity/Vol] 92 U/L 34 - 104 U/L [facility] ALT [Catalytic activity/Vol] 20 U/L 7 - 52 U/L [facility] Anion gap [Moles/Vol] 16.1 mmol/L High 6.0 - 15.0 meq/L [facility] AST [Catalytic activity/Vol] 26 U/L 13 - 39 U/L [facility] Bilirubin [Mass/Vol] 0.6 mg/dL 0.3 - 1 .0 mg/dL [facility] Calcium [Mass/Vol] 10 mg/dL 8.6 - 10. 3 mg/dL [facility] Chloride [Moles/Vol] 101 mmol/L 98 - 10 7 mmol/L [facility] CO2 [Moles/Vol] 26.9 mmol/L 21.0 - 31.0 mmol/L [facility] Creatinine (U) [Mass/Vol] 0.83 mg/dL 0.60 - 1.20 mg/dL [facility] CREATININE CLR CALC PHARMACY 78.05 [facility] ESTIMATED GFR mL/Min [facility] Globulin (S) [Mass/Vol] 3.3 g/dL [facility] Glucose [Mass/Vol] 169 mg/dL High 70 - 100 mg/dL [facility] Comment on above: Random Glucose Refer ence Range is dependent on time and content of last meal. Glucose of more than 200 mg/dL in a nonstressed, ambulatory subject supports the diagnosis of Diabetes Mellitus. ADA recommended reference range Interpretation and review of laboratory results Abnormal [facility] Potassium [Moles/Vol] 4 mmol/L 3.5 - 5.1 mmol/L [facility] Protein [Mass/Vol] 7.4 g/dL 6.4 - 8.9 g/dL [facility] Sodium [Moles/Vol] 140 mmol/L 136 - 145 mmol/L [facility] Urea nitrogen [Mass/Vol] 8 mg/dL 7 - 25 mg/dL [facility] Creatinine [Mass/volume] in Serum or PlasmaOrdered By: Nataliya Jane on 04-14-2024 Creatinine [Mass/Vol] Creatinine [Mass/v olume] in Serum or Plasma 0.60-1.20 [facility] Globulin Calc (S) [Mass/Vol] Ordered By: Nataliya Jane on 04-14-2024 Globulin (S) [Mass/Vol] Serum globulin measurement by calculation (mass/volume) [facility] Glucose [Mass/volume] in Ser um or PlasmaOrdered By: Nataliya Jane on 04-14-2024 Glucose [Mass/Vol] Glucose [Mass/volume ] in Serum or Plasma High 70-100 [facility] Comment on above: ADA recommended refe rence rangeRandom Glucose Reference Range is dependent on time and content of last meal. Glucose of more than 200 mg/dL in a nonstressed, ambulatory subject supports the diagnosis of Diabetes Mellitus. Juan 04-14-2024 L ---- Specimen: [id number] Received: 04/14/24 Status: FIDEL Ta Num: [id number] Spec Type: Impression Subm Dr: Nataliya Jane APRN Tissues: PATHPER Procedures: PATHREVIEW Age/ Patient Sex Location Account Attending Physician Taye Gay 68/F XT [id number] Nataliya Best NITZA Jane SPEC NUM: [id number] RECD: 04/14/24 STATUS: FIDEL TA NUM: [id number] RONNY: 04/14/24- SUBM DR: Nataliya Jane APRN ENTERED: 04/14/[address]: CHRISTOPHER TYPE: Impression DEPT: NE ENTERED BY: [id number] RECV BY: [id number] ORDERED: PATHREVIEW ORDERED: PATHREVIEW Pathologist Review Abnormal CBC for peripheral blood smear review: -Mild erythrocytosis and mild hyperhemoglobinemia -Mild monocytosis -No morphological abnormality of the leukocyte or platelet populations -Also no obvious morphological abnormality of the RBC, except 1 or 2 ovalocytes Comment: -The cause of acquired secondary erythrocytosis may be physiologically appropriate (usually link to chronic hypoxia, such as smoking, sleep apnea, or reside in high altitude) or inappropriate (including various neoplasm or certain renal, liver, or endocrine lesions) types. The cause of relative erythrocytosis are usually due to decreased plasma volume including dehydration or fluid loss such as diarrhea, over heated or sweating condition, and [place] syndrome. Patient dose give a history of chronic smoking. Clinical correlations are suggested CPT: 04120 Specimen: [id number] Received: 04/14/24 Status: KOKONicholas Ta Num: [id number] Spec Type: Impression Subm Dr: Nataliya Jane APRN Tissues: PATHPER Procedures: PATHREVIEW Patient: Taye Gay [id number] (Continued) Specimen: [id number] Received: 04/14/24 (Continued) Signed (signature on file) Nereyda Holt MD 04/15/24 0920 Specimen: [id number] Received: 04/14/24 Status: FIDEL Ta Num: [id number] Spec Type: Impression Subm Dr: Nataliya Jane APRN Tissues: PATHPER Procedures: PATHREVIEW Patient: Taye Gay [id number] (Continued) Specimen: [id number] Received: 04/14/24-1147 (Continued) CBC Date Time Test Result Flag (u) Normal Range 04/14/24 1048 WBC 10.7 3.8-11.6 X10E3/uL RBC 5.32 H 3.60-5.00 x10E6/uL HGB 16.6 H 11.8-15.4 g/dL HCT 49.7 H 34.0-46.4 % MCV 93.4 80-100 fl MCH 31.2 24.7-34.3 pg MCHC 33.4 32.0-35.0 g/dL RDW 15.0 11.9-15.3 % Plt 167 150-450 x10E3/uL MPV 8.9 6.3-10.7 fl Neut % (Auto) 68.8 . % Lymp % (Auto) 19.3 . % [place] % (Auto) 8.7 . % Eos % (Auto) 2.6 . % Baso % (Auto) 0.6 . % NRBC% 0.1 0-0.5 /100 WBC Neut # (Auto) 7.3 1.8-7.7 x10E3/uL Lymph # (Auto) 2.1 1.00-4.8 x10E3/uL [place] # (Auto) 0.9 H 0.0-0.8 x10E3/uL Eos # (Auto) 0.3 0.0-0.45 x10E3/uL Baso# (Auto) 0.1 0.0-0.2 x10E3/uL Specimen: [id number] Received: 04/14/24 Status: FIDEL Ta Num: [id number] Spec Type: Impression Subm Dr: Nataliya Jane APRN Tissues: PATHPER Procedures: PATHREVIEW Patient: Taye Gay [id number] (Continued) Signed (signature on file) Nereyda Holt MD 04/15/24 1518 Normal [facility] LDH Lactate Dehydrogenaseon 04-14-2024 LDH Lactate Dehydrogenase 155 U/L Normal 140-271 [facility] Comment on above: Result Comment: PERF ORMED BY: [facility] [address] [place] [address] PATHOLOGIST ENGINEERING TEAM SUPERVISOR LE MACE M.D. Performed By: #### P ATH SLIDE REV, CMP, LDH, CBC #### [facility] [address] [place] [address] [facility] LDH Lactate to pyruvate reac tion [Catalytic activity/Vol]on 04-14-2024 LDH LACTATE DEHYDROGENASE 155 U/L 140 - 271 U/L [facility] Lactate dehydrogenase [Enzym atic activity/volume] in Serum or Plasma by Lactate to pyOrdered By: Nataliya Jane on 04-14-2024 LDH Lactate to pyruvate reaction [Catalytic activity/Vol] Lactate dehydrogenase [Enzymatic activity/volume] in Serum or Plasma by Lactate to py 140-271 [facility] No Panel Informationon 04-14 [facility] No Panel InformationOrdered By: Nataliya Jane on 04-14-2024 Estimated GFR (CKD-EPI) > 60.0 mL/Min [facility] Creatinine Clearance (Chem 78.05 [facility] Slides for Pathologist Review Ordered path review [facility] PATHOLOGIST SLIDE REVIEW ( MC)on 04-14-2024 PATHOLOGIST SLIDE REVIEW Ordered Path Review [facility] Pathologist Slide Reviewon 1 06-15-2023 Pathologist Slide Review Ordered Path Review Normal [facility] Comment on above: Result Comment: PERF ORMED BY: [facility] [address] [place] [address] PATHOLOGIST ENGINEERING TEAM SUPERVISOR LE MACE M.D. Performed By: #### P ATH SLIDE REV, CMP, LDH, CBC #### [facility] [address] [place] [address] [place] Potassium [Moles/volume] in Serum or PlasmaOrdered By: Nataliya Jane on 04-14-2024 Potassium [Moles/Vol] Potassium [Moles/v olume] in Serum or Plasma 3.5-5.1 [facility] Protein [Mass/volume] in Ser um or PlasmaOrdered By: Nataliya Jane on 04-14-2024 Protein [Mass/Vol] Protein [Mass/volume ] in Serum or Plasma 6.4-8.9 [facility] Serum or plasma albumin/glob ulin mass ratioOrdered By: Nataliya Jane on 04-14-2024 Albumin/Globulin [Mass ratio] Serum or plasma albumin/globulin mass ratio [facility] Serum or plasma anion gap de terminationOrdered By: Nataliya Jane on 04-14-2024 Anion gap [Moles/Vol] Serum or plasma an ion gap determination High 6.0-15.0 [facility] Sodium [Moles/volume] in Ser um or PlasmaOrdered By: [facility] Candelariaoren on 04-14-2024 Sodium [Moles/Vol] Sodium [Moles/volume ] in Serum or Plasma 136-145 [facility] Urea nitrogen [Mass/volume] in Serum or PlasmaOrdered By: Nataliya Olsenroger on 04-14-2024 Urea nitrogen [Mass/Vol] Urea nitrogen [Mass/volume] in Serum or Plasma 7-25 [facility] ECG 12 [place] 03-25-2024 Normal sinus rhythm [facility] Work Phone: [facility] Work Phone: Aerobic cultureOrdered By: Vamsi Fritz on 01-07-2024 Bacteria identified Aer cx Nom (Unsp spec) [facility] Superficial Wound Cultureon 01-07-2024 Superficial Wound Culture Plantar right foot Result Tab Codes Light Normal Skin Erna 2 Days PERFORMED BY: [place] [address] PATHOLOGIST ENGINEERING TEAM SUPERVISOR SADAF STANTON M.D. Normal [facility] Comment on above: Performed By: #### P ATH SLIDE REV, CMP, LDH, CBC #### [address] US venous duplex LE BIon US venous duplex LE BI [facility] Main [place] [address] [place] [address] Ultrasound Report Signed Patient: Taye Gay MR#: [id number] 19 : 1955 Acct:[id number] Age/Sex: 68 / F ADM Date: 01/06/24 Loc: Room: Type: [facility] CLI Attending Dr: Thuan Wise MD Ordering Provider: [...] Tray Nava MD01/07/2024 9:46 AM Dictation Location: [place] [address] Tech: Carmen Motley Transcribed By: AMY 01/07/24945 Dictated By: Tray Nava MD 01/07/24945 Signed By: 01/07/24945 Normal [facility] XR pre/post mri xrayon 12-16 XR pre/post mri xray [facility] [place] [address] MRI Report Signed Patient: Taye Gay MR#: [id number] [birth year] : 1955 Acct:[id number] Age/Sex: 68 / F ADM Date: 12/17/23 Loc: [facility] Room: Type: [facility] CLI Attending Dr: Oz Kincaid MD Copies to: Oz Kincaid MD Ordering Provider: Oz Kincaid MD Date of Service: 12/17/23 MR/MR lumbar spine wo con: [id number] ([id number]) XR/XR pre/post mri xray: post MRI lumbar [...] Oz Bowling M.D.12/17/2023 12:50 PM Dictation Location: [place] [address] Transcribed By: [facility] 12/17/23 1250 Dictated By: Oz Bowling II, MD 12/17/23 1240 Signed By: 12/17/23 1250 Normal [facility] ECG 12 [place] 12-16-2023 [facility] Work Phone: Normal sinus rhythm [facility] Work Phone: ANAon 12-07-2023 ANTINUCLEAR ABS, IFA Positive Critically abnormal . [facility] Comment on above: Negative <1:80 Borderline 1:80 Positive >1:80 Interpretation and review of laboratory results Abnormal [facility] NOTE 1 Comment . [facility] Comment on above: Pattern Potential Di sease Association Homogeneous Systemic Lupus Erythematosus, Drug Induced Systemic Lupus Erythematosus, Chronic Autoimmune hepatitis, Juvenile Idiopathic Arthritis Speckled Sjogren Syndrome, Systemic Lupus Erythematosus, Subacute Cutaneous Lupus, Lupus, Congenital Heart Block, Mixed Connective Tissue Disease, Scleroderma-diffuse, Scleroderma-Autoimmune Myositis Overlap Syndrome, Systemic Lupus Jhuqzptrqcwcn-Jqajuvcsjon-Yzhqkrmvsw Myositis Overlap Syndrome, Systemic Autoimmune Rheumatic Disease, [...] Cytopenias, Linear Scleroderma, Antiphospholipid Syndrome Performed at: [facility] [id number] Industrial Engineering Director: Yuri Osullivan PhD, Phone: [phone] SPECKLED PATTERN 1:320 High . [facility] Comment on above: ICAP nomenclature: A C-2,4,5,29 ANCA PROFILE (ANCA+MPO+PR3)o n 12-07-2023 ANTIMYELOPEROXIDASE (MPO) ABS <0.2 0.0 - 0.9 [facility] ATYPICAL PANCA <1:20 Neg:<1:20 [facility] Comment on above: The atypical pANCA p attern has been observed in a significant percentage of patients with ulcerative colitis, primary sclerosing cholangitis and autoimmune hepatitis. Performed at: [address] [id number] Industrial Engineering Director: Christine Pham MD, Phone: [phone] Performed at: [facility] [employer] [id number] Industrial Engineering Director: Yuri Osullivan PhD, Phone: [phone] CYTOPLASMIC (C-ANCA) <1:20 Neg:<1:20 [facility] PERINUCLEAR [...] 3 (PR3) ANTIBODIES <0.2 0.0 - 0.9 [facility] ANTI-CENTROMERE B ANTIBODIES on 12-07-2023 ANTI-CENTROMERE B ANTIBODIES <0.2 0.0 - 0.9 [facility] Comment on above: Performed at: [facility] [address] [place], [place] [id number] Industrial Engineering Director: Yuri Osullivan PhD, Phone: [phone] ANTI-DSDNA(DBL)ABon 12-07-19 24 ANTI-DSDNA(DBL)AB 1 0 - 9 [facility] Comment on above: Negative <5 Equivocal 5 - 9 Positive >9 ANTI-RNPon 12-07-2023 ANTI-RENTAL MANAGER 0.3 0.0 - 0.9 [facility] ANTIRIBOSOMAL P ANTIBODIESon 12-07-2023 ANTIRIBOSOMAL P ANTIBODIES <0.2 0.0 - 0.9 [facility] Anti-Fritz antibodyon 2023 ANTI-FRITZ ANTIBODIES <0.2 0.0 - 0.9 [facility] HISTONE ANTIBODIESon 024 HISTONE ANTIBODIES 0.6 0.0 - 0.9 [facility] Comment on above: Negative <1.0 Weak Positive 1.0 - 1.5 Moderate Positive 1.6 - 2.5 Strong Positive >2.5 Performed at: - [facility] [id number] Industrial Engineering Director: Christine Pham MD, Phone: [phone] SUSHMA-1 ANTIBODYon 12-07-2023 SUSHMA-1 ANTIBODY <0.2 0.0 - 0.9 [facility] Mitochondrial antibodies, M2 on 12-07-2023 MITOCHONDRIAL (M2) ANTIBODY <20.0 0.0 - 20.0 [facility] Comment on above: Negative 0.0 - 20.0 Equivocal 20.1 - 24.9 Positive >24.9 Mitochondrial (M2) Antibodies are found in 90-96% of patients with primary biliary cirrhosis. Performed at: [address] [id number] Industrial Engineering Director: Yuri Osullivan PhD, Phone: [phone] No Panel Informationon 12-06 [facility] SCLERODERMA 70 ANTIBODIESon 12-07-2023 SCLERODERMA 70 ANTIBODIES <0.2 0.0 - 0.9 [facility] SJOGRENS ANTI-SSA/SSBon 11-27 SS-A/RO SJOGRENS ANTIBODY <0.2 0.0 - 0.9 [facility] SS-B/LA SJOGRENS ANTIBODY <0.2 0.0 - 0.9 [facility] SRP AUTOANTIBODIESon 024 SRP (SIGNAL RECOG. PARTICLE) Negative Negative [facility] Comment on above: This test was develo ped and its performance characteristics determined by [facility] [employer]. It has not been cleared or approved by the Food and Drug Administration. Performed at: [facility] [address] [place] [id number] Industrial Engineering Director: Juan Cruz MD, Phone: [phone] Alanine aminotransferase [En zymatic activity/volume] in Serum or PlasmaOrdered By: Tolu Salinas on 12-02-2023 ALT [Catalytic activity/Vol] 31 U/L Normal 7-52 [facility] Comment on above: Performed By: #### P ATH SLIDE REV, CMP, LDH, CBC #### [facility] [address] Albumin [Mass/volume] in Ser um or Plasma by Bromocresol green (BCG) dye binding methoOrdered By: Tolu Salinas on 12-02-2023 Albumin BCG dye [Mass/Vol] 4.2 g/dL 3.5-5.7 [facility] Alkaline phosphatase [Enzyma tic activity/volume] in Serum or PlasmaOrdered By: Tolu Salinas on 12-02-2023 ALP [Catalytic activity/Vol] 75 U/L Normal 34-104 [facility] Comment on above: Performed By: #### P ATH SLIDE REV, CMP, LDH, CBC #### [facility] [address] [place] [id number] [place] Arsenicon 12-02-2023 Arsenic 2 Normal 0-9 [facility] Comment on above: Result Comment: This test was developed and its performance characteristics determined by [facility]. It has not been cleared or approved by the Food and Drug Administration. Detection Limit = 1 Performed By: #### P ATH TO [facility] #### [facility] [address] Aspartate aminotransferase [ Enzymatic activity/volume] in Serum or PlasmaOrdered By: Tolu Salinas on 12-02-2023 AST [Catalytic activity/Vol] 37 U/L Normal 13-39 [facility] Comment on above: Performed By: #### P ATH SLIDE REV, CMP, LDH, CBC #### [facility] [address] Basophil percentageOrdered B y: Oz Kincaid on 12-02-2023 Basophil percentage 96 ug/dL 80-[address] [facility] Comment on above: This test was develo ped and its performance characteristicsdetermined by [facility]. It has not been cleared orapproved by the Food and Drug Administration. Detection Limit = 5Performed at: [facility] Lab[address] [id number] Director: Christine Pham MD, Phone: [phone] Basophil percentage 2 ug/L 0-[address] [facility] Comment on above: This test was develo ped and its performance characteristicsdetermined by [facility]. It has not been cleared orapproved by the Food and Drug Administration. Detection Limit = 1 Bilirubin.total [Mass/volume ] in Serum or PlasmaOrdered By: Tolu Salinas on 12-02-2023 Bilirubin [Mass/Vol] 0.4 mg/dL Normal 0.3-1.0 [facility] Comment on above: Performed By: #### P ATH SLIDE REV, CMP, LDH, CBC #### [facility] [address] Blood lead detectionOrdered By: Oz Kincaid on 12-02-2023 Lead Ql (Bld) <1.0 ug/dL 0.0-3.4 [facility] Comment on above: Testing performed by Inductively coupled plasma/MassSpectrometry.Analysis by inductively coupled plasma/massspectrometry (ICP/MS)This test was developed and its performance characteristicsdetermined by [employer]. It has not been cleared orapproved by the Food and Drug Administration. Environmental Exposure: WHO Recommendation <5.0 Occupational Exposure: OSHA Lead Std 40.0 BOB 30.0 Detection Limit = 1.0Performed at: [facility] [address] [id number] Director: Yuri Osullivan PhD, Phone: [phone] Blood mercury measurement (m ass/volume)Ordered By: Oz Kincaid on 12-02-2023 Mercury (Bld) [Mass/Vol] <1.0 ug/L 0.0-14.9 [facility] Comment on above: This test was develo ped and its performance characteristicsdetermined by [employer]. It has not been cleared orapproved by the Food and Drug Administration. Detection Limit = 1.0Performed at: [facility] [id number] Director: Christine Pham MD, Phone: [phone] Calcium [Mass/volume] in Ser um or PlasmaOrdered By: Tolu Salinas on 12-02-2023 Calcium [Mass/Vol] 9.9 mg/dL Normal 8.6-10.3 [facility] Comment on above: Performed By: #### P ATH SLIDE REV, CMP, LDH, CBC #### [facility] [address] [place] [address] Carbon dioxide, total [Moles /volume] in Serum or PlasmaOrdered By: Tolu Salinas on 12-02-2023 CO2 [Moles/Vol] 32.0 mmol/L High 21.0-31.[address] [facility] Comment on above: Performed By: #### P ATH SLIDE REV, CMP, LDH, CBC #### [address] Ceruloplasminon 12-02-2023 Ceruloplasmin 26.8 mg/dL Normal 19.0-39.0 [facility] Comment on above: Result Comment: Perf ormed at: CB - [facility] [place] [id number] Industrial Engineering Director: Yuri Osullivan PhD, Phone: [phone] PERFORMED BY: [place] [address] PATHOLOGIST ENGINEERING TEAM SUPERVISOR SADAF SATNTON M.D. Performed By: #### C BC #### [address] Chloride [Moles/volume] in S elliot or PlasmaOrdered By: Tolu Salinas on 12-02-2023 Chloride [Moles/Vol] 103 mmol/L Normal 98-107 [facility] Comment on above: Performed By: #### P ATH SLIDE REV, CMP, LDH, CBC #### [address] Complement C3on 12-02-2023 Complement C3 147 mg/dL Normal 82-167 [facility] Comment on above: Result Comment: Perf ormed at: - [facility] [address] [id number] Industrial Engineering Director: Yuri Osullivan PhD, Phone: [phone] Performed By: #### C BC #### [address] Complement C4on 12-02-2023 Complement C4 32 mg/dL Normal 12-38 [facility] Comment on above: Performed By: #### P ATH TO [facility] #### [address] Comprehensive Metabolic Pane juan 12-02-2023 Albumin [Mass/Vol] 4.2 g/dL Normal 3.5-5.7 [facility] Comment on above: Performed By: #### P ATH SLIDE REV, CMP, LDH, CBC #### [address] GFR/1.73 sq M.predicted MDRD (S/P/Bld) [Vol rate/Area] mL/min/{1.73_m2} Normal [facility] Comment on above: Performed By: #### P ATH SLIDE REV, CMP, LDH, CBC #### [place] [address] [place] Copperon 12-02-2023 Copper 96 ug/dL Normal 80-158 [facility] Comment on above: Result Comment: This test was developed and its performance characteristics determined by [facility]. It has not been cleared or approved by the Food and Drug Administration. Detection Limit = 5 Performed at: [facility] [address] [id number] Industrial Engineering Director: Christine Pham MD, Phone: [phone] Performed By: #### C BC #### [address] Creatinine [Mass/volume] in Serum or PlasmaOrdered By: Tolu Salinas on 12-02-2023 Creatinine [Mass/Vol] 0.97 mg/dL Normal 0.60-1.20 [facility] Comment on above: Performed By: #### P ATH SLIDE REV, CMP, LDH, CBC #### [address] Cryoglobulin with Quant Refl exon 12-02-2023 Cryoglobulin, Ql, Serum Comment Normal None detected [facility] Comment on above: Result Comment: None Detected at 72 hours This test was developed and its performance characteristics determined by [facility]. It has not been cleared or approved by the Food and Drug Administration. Performed at: [facility] [address] [id number] Industrial Engineering Director: Yuri Osullivan PhD, Phone: [phone] Performed By: #### P ATH TO [facility] #### [place] [address] [place] Glucose [Mass/volume] in Ser um or PlasmaOrdered By: Tolu Salinas on 12-02-2023 Glucose [Mass/Vol] 114 mg/dL High 70-100 [facility] Comment on above: ADA recommended refe rence rangeRandom Glucose Reference Range is dependent on time and content of last meal. Glucose of more than 200 mg/dL in a nonstressed, ambulatory subject supports the diagnosis of Diabetes Mellitus. Result Comment: [place] om Glucose Reference Range is dependent on time and content of last meal. Glucose of more than 200 mg/dL in a nonstressed, ambulatory subject supports the diagnosis of Diabetes Mellitus. ADA recommended reference range Performed By: #### P ATH SLIDE REV, CMP, LDH, CBC #### [address] HIV 1/O/2 Antigen/Antibodyon 12-02-2023 HIV Screen 4th Generation Non-Reactive Normal Non Reactive [facility] Comment on above: Result Comment: HIV- 1/HIV-2 antibodies and HIV-1 p24 antigen were NOT detected. There is no laboratory evidence of HIV infection. HIV Negative Performed at: [facility] [place] [address] Industrial Engineering Director: Yuri Osullivan PhD, Phone: [phone] Performed By: #### P ATH TO [facility] #### [address] HIV 1 and HIV-2 antibody ass ay with HIV-1 p24 antigen detectionOrdered By: Oz Kincaid on 12-02-2023 HIV 1+2 Ab+HIV1 p24 Ag IA Ql Non-Reactive Non Reactive [facility] Comment on above: HIV-1/HIV-2 antibodi es and HIV-1 p24 antigen were NOTdetected. There is no laboratory evidence of HIV infection.HIV NegativePerformed at: [facility] [id number] Director: Yuri Osullivan PhD, Phone: [phone] Hepatitis Acute Panelon HBsAg Screen Negative Normal Negative [facility] Comment on above: Performed By: #### C BC #### [address] Hepatitis A Antibody IgM Negative Normal Negative [facility] Comment on above: Performed By: #### C BC #### [address] Hepatitis B Core Antibody IgM Negative Normal Negative [facility] Comment on above: Performed By: #### C BC #### [address] Hepatitis C Virus Antibody Non-Reactive Normal Non Reactive [facility] Comment on above: Performed By: #### C BC #### [address] Interpretation Hepatitis C Comment Normal . [facility] Comment on above: Result Comment: Not infected with HCV unless early or acute infection is suspected (which may be delayed in an immunocompromised individual), or other evidence exists to indicate HCV infection. Performed at: [facility] [id number] Industrial Engineering Director: Yuri Osullivan PhD, Phone: [phone] PERFORMED BY: [place] [address] PATHOLOGIST ENGINEERING TEAM SUPERVISOR SADAF STANTON M.D. Performed By: #### C BC #### [address] Hepatitis B virus surface Ag [Presence] in Serum or Plasma by ImmunoassayOrdered By: Oz Kincaid on 12-02-2023 HBV surface Ag IA Ql Negative Negative [facility] Hepatitis C virus IgG Ab [Pr esence] in Serum or Plasma by ImmunoassayOrdered By: Oz Kincaid on 12-02-2023 HCV IgG IA Ql Non-Reactive Non Reactive [facility] Hepatitis C virus RNA [Units /volume] (viral load) in Serum or Plasma by TEJINDER with probOrdered By: Oz Kincaid on 12-02-2023 HCV RNA TJEINDER+probe Qn N/A [facility] Hepatitis C virus RNA [log u nits/volume] (viral load) in Serum or Plasma by TEJINDER withOrdered By: Oz Kincaid on 12-02-2023 HCV RNA TEJINDER+probe [Log units/Vol] N/A [facility] LDH Lactate Dehydrogenaseon 12-02-2023 LDH Lactate Dehydrogenase 156 U/L Normal 140-271 [facility] Comment on above: Result Comment: PERF ORMED BY: [place] [address] PATHOLOGIST ENGINEERING TEAM SUPERVISOR SADAF STANTON M.D. Performed By: #### C BC #### [address] Lactate dehydrogenase [Enzym atic activity/volume] in Serum or Plasma by Lactate to pyOrdered By: Oz Kincaid on 12-02-2023 LDH Lactate to pyruvate reaction [Catalytic activity/Vol] 156 U/L 140-271 [facility] Lead, Adulton 12-02-2023 Lead-Adult Blood <1.0 Normal 0.0-3.4 [facility] Comment on above: Result Comment: Test ing performed by Inductively coupled plasma/Mass Spectrometry. Analysis by inductively coupled plasma/mass spectrometry (ICP/MS) This test was developed and its performance characteristics determined by [employer]. It has not been cleared or approved by the Food and Drug Administration. Environmental Exposure: WHO Recommendation <5.0 Occupational Exposure: OSHA Lead Std 40.0 BOB 30.0 Detection Limit = 1.0 Performed at: [facility] [employer] [id number] Industrial Engineering Director: Yuri Osullivan PhD, Phone: [phone] Performed By: #### P ATH TO [facility] #### [address] MISC LABon 12-02-2023 MISC LAB Normal [facility] Comment on above: Order Comment: GI SP ECIMEN Result Comment: See report. Scanned copy available in EMR. PERFORMED BY: [place] [address] PATHOLOGIST ENGINEERING TEAM SUPERVISOR SADAF STANTON M.D. Performed By: #### P ATH TO [facility] #### [address] MISC2 LABon 12-02-2023 MISC2 LAB Normal [facility] Comment on above: Order Comment: Misc 2 Test Name: DELTA-ALA URINE RANDOM LC [id number] Result Comment: See report. Scanned copy available in EMR. PERFORMED BY: [place] [address] PATHOLOGIST ENGINEERING TEAM SUPERVISOR SADAF STANTON M.D. Performed By: #### P ATH SLIDE REV, CMP, LDH, CBC #### [facility] [address] [place] [address] Magnesium [Mass/volume] in S elliot or PlasmaOrdered By: Tolu Salinas on 12-02-2023 Magnesium [Mass/Vol] 2.0 mg/dL Normal 1.9-2.7 [facility] Comment on above: Result Comment: PERF ORMED BY: [place] [address] PATHOLOGIST ENGINEERING TEAM SUPERVISOR SADAF STANTON M.D. Performed By: #### P ATH SLIDE REV, CMP, LDH, CBC #### [facility] [address] [place] [address] Mercury Bloodon 12-02-2023 Mercury, Blood <1.0 Normal 0.0-14.9 [facility] Comment on above: Result Comment: This test was developed and its performance characteristics determined by [employer]. It has not been cleared or approved by the Food and Drug Administration. Detection Limit = 1.0 Performed at: [facility] [employer] [id number] Industrial Engineering Director: Christine Pham MD, Phone: [phone] Performed By: #### P ATH TO [facility] #### [facility] [address] [place] [address] No Panel InformationOrdered By: Oz Kincaid on 12-02-2023 Miscellaneous Test 2 See comment [facility] Comment on above: See report. Scanned copy available in EMR. Hepatitis A IgM Antibody Negative Negative [facility] Hepatitis B Core IgM Antibody Negative Negative [facility] Hepatitis C Interpretation Comment . [facility] Comment on above: Not infected with HC V unless early or acute infection issuspected (which may be delayed in an immunocompromisedindividual), or other evidence exists to indicate HCVinfection.Performed at: [facility] [employer] [place] [id number] Director: Yuri Osullivan PhD, Phone: [phone] Miscellaneous Test See comment [facility] Comment on above: See report. Scanned copy available in EMR. Whole Blood Zinc 768 ug/dL 440-[address] [facility] Comment on above: This test was develo ped and its performance characteristicsdetermined by [employer]. It has not been cleared orapproved by the Food and Drug Administration.Performed at: [facility] [employer] [id number] Director: Christine Pham MD, Phone: [phone] No Panel InformationOrdered By: Tolu Salinas on 12-02-2023 Estimated GFR (CKD-EPI) > 60.0 mL/Min [facility] Creatinine Clearance (Chem N/A [facility] Potassium [Moles/volume] in Serum or PlasmaOrdered By: Tolu Salinas on 12-02-2023 Potassium [Moles/Vol] 4.5 mmol/L Normal 3.5-5.1 [facility] Comment on above: Performed By: #### P ATH SLIDE REV, CMP, LDH, CBC #### [facility] [address] [place] [address] [place] Protein [Mass/volume] in Ser um or PlasmaOrdered By: Tolu Salinas on 12-02-2023 Protein [Mass/Vol] 6.9 g/dL Normal 6.4-8.9 [facility] Comment on above: Performed By: #### P ATH SLIDE REV, CMP, LDH, CBC #### [facility] [address] [place] [id number] [place] Serum angiotensin converting enzyme (VITA) measurementOrdered By: Oz Kincaid on 12-02-2023 Angiotensin converting enzyme [Catalytic activity/Vol] 53 U/L Normal 14-82 [facility] Comment on above: Performed at: [facility] [address] [id number] Director: Yuri Osullivan PhD, Phone: [phone] Result Comment: Perf ormed at: - [facility] [address] [id number] Industrial Engineering Director: Yuri Osullivan PhD, Phone: [phone] Performed By: #### C BC #### [address] Serum cryoglobulin detection Ordered By: Oz Kincaid on 12-02-2023 Cryoglobulin Ql (S) Comment None detected [facility] Comment on above: None Detected at 72 hoursThis test was developed and its performance characteristicsdetermined by [employer]. It has not been cleared orapproved by the Food and Drug Administration.Performed at: [facility] [address] [id number] Director: Yuri Osullivan PhD, Phone: [phone] Serum globulin measurement b y calculation (mass/volume)Ordered By: Tolu Salinas on 12-02-2023 Globulin (S) [Mass/Vol] 2.7 g/dL Normal [facility] Comment on above: Performed By: #### P ATH SLIDE REV, CMP, LDH, CBC #### [address] Serum or plasma albumin/glob ulin mass ratioOrdered By: Tolu Salinas on 12-02-2023 Albumin/Globulin [Mass ratio] 1.6 {ratio} Normal [facility] Comment on above: Performed By: #### P ATH SLIDE REV, CMP, LDH, CBC #### [address] Serum or plasma anion gap de terminationOrdered By: Tolu Salinas on 12-02-2023 Anion gap [Moles/Vol] 8.5 mmol/L Normal 6.0-15.0 [facility] Comment on above: Performed By: #### P ATH SLIDE REV, CMP, LDH, CBC #### [address] Serum or plasma ceruloplasmi n measurement (mass/volume)Ordered By: Oz Kincaid on 12-02-2023 Ceruloplasmin [Mass/Vol] 26.8 mg/dL 19.0-39.0 [facility] Comment on above: Performed at: [facility] [address] [place] [id number] Director: Yuri Osullivan PhD, Phone: [phone] Serum or plasma complement C 3 measurement (mass/volume)Ordered By: Oz Kincaid on 12-02-2023 Complement C3 [Mass/Vol] 147 mg/dL 82-167 [facility] Comment on above: Performed at: CB [facility] [address] [id number] Director: Yuri Osullivan PhD, Phone: [phone] Serum or plasma complement C 4 measurement (mass/volume)Ordered By: Oz Kincaid on 12-02-2023 Complement C4 [Mass/Vol] 32 mg/dL 12-38 [facility] Sodium [Moles/volume] in Ser um or PlasmaOrdered By: Tolu Salinas on 12-02-2023 Sodium [Moles/Vol] 139 mmol/L Normal 136-145 [facility] Comment on above: Performed By: #### P ATH SLIDE REV, CMP, LDH, CBC #### [facility] [address] [place] [address] Thalliumon 12-02-2023 Thallium <1.0 Normal <5.0 [facility] Comment on above: Result Comment: Thal lium concentrations greater than 300 ng/ml are consistent with acute toxicity. Urine is the preferred specimen for assessment of thallium exposure. Thallium analysis performed by inductively coupled plasma / mass spectrometry (ICP/MS). This test was developed and its performance characteristics determined by [facility]. It has not been cleared or approved by the Food and Drug Administration. Performed at: [employer] [address] [place] [id number] Industrial Engineering Director: Whitney Arevalo [facility], Phone: [phone] PERFORMED BY: [place] [address] PATHOLOGIST ENGINEERING TEAM SUPERVISOR SADAF STANTON M.D. Performed By: #### P ATH TO [facility] #### [facility] [address] [place] [address] Thallium [Mass/volume] in Se rum or PlasmaOrdered By: Oz Kincaid on 12-02-2023 Thallium [Mass/Vol] <1.0 ng/mL <5.[address] [facility] Comment on above: Thallium concentrati ons greater than 300 ng/ml are consistent with acute toxicity. Urine is the preferred specimen for assessment of thallium exposure. Thallium analysis performed by inductively coupled plasma / mass spectrometry (ICP/MS).This test was developed and its performance characteristicsdetermined by [facility]. It has not been cleared or approvedby the Food and Drug Administration.Performed at: [facility] [address] [id number] Director: Whitney Areval[facility], Phone: [phone] Urea nitrogen [Mass/volume] in Serum or PlasmaOrdered By: Tolu Salinas on 12-02-2023 Urea nitrogen [Mass/Vol] 11 mg/dL Normal 7-25 [facility] Comment on above: Performed By: #### P ATH SLIDE REV, CMP, LDH, CBC #### [facility] [address] [place] [id number] [facility] Zinc, Whole Bloodon 12-02-19 24 Zinc, Whole Blood 768 ug/dL Normal 440-860 [facility] Comment on above: Result Comment: This test was developed and its performance characteristics determined by [facility]. It has not been cleared or approved by the Food and Drug Administration. Performed at: - [address] [id number] Industrial Engineering Director: Christine Pham MD, Phone: [phone] Performed By: #### P ATH TO [facility] #### [facility] [address] [place] [id number] [facility] LACTATE AND PYRUVATEon 11-27 Interpretation and review of laboratory results Abnormal [facility] LACTIC ACID, PLASMA 27.1 mg/dL High 4.8 - 25 .7 mg/dL [facility] PYRUVIC ACID, BLOOD 0.7 mg/dL 0.3 - 0. 7 mg/dL [facility] Comment on above: This test was develo ped and its performance characteristics determined [facility]. It has not been cleared or approved by the Food and Drug Administration. Performed at: [facility] [address] [id number] Industrial Engineering Director: Yuri Osullivan PhD, Phone: [phone] Performed at: [facility] [id number] Industrial Engineering Director: Christine Pham MD, Phone: [phone] [facility] BEATRICE Antinuclear Antibodieson 11-26-2023 Antinuclear Abs, IFA Positive Critically abnormal . [facility] Comment on above: Result Comment: Nega tive <1:80 Borderline 1:80 Positive >1:80 Performed By: #### J O1, MITOM2, ANCA PROF, CENTROME, ANTIR, ANTIRIBOSOMAL P, ADNA, BEATRICE, [id number], SJOGRENS, FRITZ, SRP AUTOABS, HISAB ####[facility] , Note 1 Comment Normal . [facility] Comment on above: Result Comment: Gayatri kaufman Potential Disease Association Homogeneous Systemic Lupus Erythematosus, Drug Induced Systemic Lupus Erythematosus, Chronic Autoimmune hepatitis, Juvenile Idiopathic Arthritis Speckled Sjogren Syndrome, Systemic Lupus Erythematosus, Subacute Cutaneous Lupus, Lupus, Congenital Heart Block, Mixed Connective Tissue Disease, Scleroderma-diffuse, Scleroderma-Autoimmune Myositis Overlap Syndrome, Systemic Lupus Unsdhbgfgwvzb-Dzhamgioxfk-Rygquadvyd Myositis Overlap Syndrome, Systemic Autoimmune Rheumatic Disease, [...] Cytopenias, Linear Scleroderma, Antiphospholipid Syndrome Performed at: [facility] [employer] [address] [id number] Industrial Engineering Director: Yuri Osullivan PhD, Phone: [phone] Performed By: #### J O1, MITOM2, ANCA PROF, CENTROME, ANTIR, ANTIRIBOSOMAL P, ADNA, BEATRICE, [id number], SJOGRENS, FRITZ, SRP AUTOABS, HISAB ####[facility] , Speckled Pattern 1:320 High . [facility] Comment on above: Result Comment: ICAP nomenclature: [id number],5,[id number] Performed By: #### J O1, MITOM2, ANCA PROF, CENTROME, ANTIR, ANTIRIBOSOMAL P, ADNA, BEATRICE, [id number], SJOGRENS, FRITZ, SRP AUTOABS, HISAB ####[facility] , ANCA Profile (ANCA+MPO+PR3)o n 11-26-2023 Antimyeloperoxidase (MPO) Abs <0.2 Normal 0.0-0.9 [facility] Comment on above: Performed By: #### C BC #### [address] Atypical pANCA <1:20 Normal Neg:<1:20 [facility] Comment on above: Result Comment: The atypical pANCA pattern has been observed in a significant percentage of patients with ulcerative colitis, primary sclerosing cholangitis and autoimmune hepatitis. Performed at: - [facility] [id number] Industrial Engineering Director: Christine Pham MD, Phone: [phone] Performed at: - [facility] [address] [id number] Industrial Engineering Director: Yuri Osullivan PhD, Phone: [phone] Performed By: #### C BC #### [place] [address] [place] Cytoplasmic (C-ANCA) <1:20 Normal Neg:<1:20 [facility] Comment on above: Performed By: #### C BC #### [place] [address] [place] Perinuclear (P-ANCA) <1:20 Normal Neg:<1:20 [facility] Comment on above: Result [...] J Clin Pathol 1999;111:507-513. Performed By: #### C BC #### [address] Proteinase 3 (PR3) Antibodies <0.2 Normal 0.0-0.9 [facility] Comment on above: Performed By: #### C BC #### [place] [address] [place] Anti-Centromere B Antibodies on 11-26-2023 Anti-Centromere B Antibodies <0.2 Normal 0.0-0.9 [facility] Comment on above: Result Comment: Perf ormed at: [facility] [id number] Industrial Engineering Director: Yuri Osullivan PhD, Phone: [phone] Performed By: #### J O1, MITOM2, ANCA PROF, CENTROME, ANTIR, ANTIRIBOSOMAL P, ADNA, BEATRICE, [id number], SJOGRENS, FRITZ, SRP AUTOABS, HISAB ####[facility] , Anti-RNPon 11-26-2023 Anti-RENTAL MANAGER 0.3 Normal 0.0-0.9 [facility] Comment on above: Performed By: #### J O1, MITOM2, ANCA PROF, CENTROME, ANTIR, ANTIRIBOSOMAL P, ADNA, BEATRICE, [id number], SJOGRENS, FRITZ, SRP AUTOABS, HISAB ####[facility] , Anti-Fritz Antibodieson 10-29 Anti-Fritz Antibodies <0.2 Normal 0.0-0.9 [facility] Comment on above: Performed By: #### J O1, MITOM2, ANCA PROF, CENTROME, ANTIR, ANTIRIBOSOMAL P, ADNA, BEATRICE, [id number], SJOGRENS, FRITZ, SRP AUTOABS, HISAB ####[facility] , Anti-dsDNA(DBL)Abon 11-26-19 24 Anti-dsDNA(DBL)Ab 1 Normal 0-9 [facility] Comment on above: Result Comment: Nega tive <5 Equivocal 5 - 9 Positive >9 Performed By: #### C BC #### [place] [address] [place] Antiribosomal P Antibodieson 11-26-2023 Antiribosomal P Antibodies <0.2 Normal 0.0-0.9 [facility] Comment on above: Performed By: #### C BC #### [address] DNA double strand Ab [Units/ volume] in SerumOrdered By: Oz Kincaid on 11-26-2023 DNA double strand Ab Qn (S) 1 [IU]/mL 0-9 [facility] Comment on above: Negative <5 Equivoca l 5 - 9 Positive >9 Histone Antibodieson 024 Histone Antibodies 0.6 Normal 0.0-0.9 [facility] Comment on above: Result Comment: Nega tive <1.0 Weak Positive 1.0 - 1.5 Moderate Positive 1.6 - 2.5 Strong Positive >2.5 Performed at: [facility] [address] [id number] Industrial Engineering Director: Christine Pham MD, Phone: [phone] Performed By: #### J O1, MITOM2, ANCA PROF, CENTROME, ANTIR, ANTIRIBOSOMAL P, ADNA, BEATRICE, [id number], SJOGRENS, FRITZ, SRP AUTOABS, HISAB ####[facility] , SUSHMA-1 Antibodyon 11-26-2023 SUSHMA-1 Antibody <0.2 Normal 0.0-0.9 [facility] Comment on above: Performed By: #### J O1, MITOM2, ANCA PROF, CENTROME, ANTIR, ANTIRIBOSOMAL P, ADNA, BEATRICE, [id number], SJOGRENS, FRITZ, SRP AUTOABS, HISAB ####[facility] , Lactate and Pyruvateon 11-25 Lactic Acid, Plasma 27.1 mg/dL High 4.8-25.7 [facility] Comment on above: Performed By: #### P ATH SLIDE REV, CMP, LDH, CBC #### [facility] [address] [place] [address] [facility] Pyruvic Acid, Blood 0.7 mg/dL Normal 0.3-0.7 [facility] Comment on above: Result Comment: This test was developed and its performance characteristics determined by [employer]. It has not been cleared or approved by the Food and Drug Administration. Performed at: [facility] [address] [id number] Industrial Engineering Director: Yuri Osullivan PhD, Phone: [phone] Performed at: [facility] [address] [id number] Industrial Engineering Director: Christine Pham MD, Phone: [phone] PERFORMED BY: [place] [address] PATHOLOGIST ENGINEERING TEAM SUPERVISOR SADAF STANTON M.D. Performed By: #### P ATH SLIDE REV, CMP, LDH, CBC #### [address] Mitochondrial (M2) Antibodyo n 11-26-2023 Mitochondrial (M2) Antibody <20.0 Normal 0.0-20.0 [facility] Comment on above: Result Comment: Nega tive 0.0 - 20.0 Equivocal 20.1 - 24.9 Positive >24.9 Mitochondrial (M2) Antibodies are found in 90-96% of patients with primary biliary cirrhosis. Performed at: [facility] [address] [id number] Industrial Engineering Director: Yuri Osullivan PhD, Phone: [phone] Performed By: #### J O1, MITOM2, ANCA PROF, CENTROME, ANTIR, ANTIRIBOSOMAL P, ADNA, BEATRICE, [id number], SJOGRENS, FRITZ, SRP AUTOABS, HISAB ####[facility] , Myeloperoxidase Ab [Units/vo lume] in Serum by ImmunoassayOrdered By: Oz Kincaid on 11-26-2023 Myeloperoxidase Ab IA Qn (S) <0.2 units 0.0-0.9 [facility] No Panel InformationOrdered By: Oz Kincaid on 11-26-2023 Anti-Nuclear Antibody Comment 2 Comment . [facility] Comment on above: Pattern Potential Di sease Association Homogeneous Systemic Lupus Erythematosus, Drug Induced Systemic Lupus Erythematosus, Chronic Autoimmune hepatitis, Juvenile Idiopathic Arthritis Speckled Sjogren Syndrome, Systemic Lupus Erythematosus, Subacute Cutaneous Lupus, Lupus, Congenital Heart Block, Mixed Connective Tissue Disease, Scleroderma-diffuse, Scleroderma-Autoimmune Myositis Overlap Syndrome, Systemic Lupus Fmmehihtlqfgu-Bndtxdczciz-Whyplowbgg Myositis Overlap Syndrome, Systemic Autoimmune Rheumatic Disease, [...] Cytopenias, Linear Scleroderma, Antiphospholipid Syndrome Performed at: [address] [id number] Director: Yuri Osullivan PhD, Phone: [phone] Atypical p-ANCA <1:20 titer Neg:<1:[address] [facility] Comment on above: The atypical pANCA p attern has been observed in asignificant percentage of patients with ulcerative colitis,primary sclerosing cholangitis and autoimmune hepatitis.Performed at: [facility] [employer] [id number] Director: Christine Pham MD, Phone: [phone] at: [facility] [employer] [id number] Director: Yuri Osullivan PhD, Phone: [phone] Perinuclear ANCA (p-ANCA) Antibody <1:20 titer Neg:<1:20 [facility] Comment on above: The presence [...] only by EIA. Ref. AM J Clin [id number];111:507-513. Plasma Lactic Acid, Venous 27.1 mg/dL High 4.8-25.7 [facility] Pyruvic Acid 0.7 mg/dL 0.3-0.7 [facility] Comment on above: This test was develo ped and its performance characteristicsdetermined by [employer]. It has not been cleared orapproved by the Food and Drug Administration.Performed at: [facility] [employer] [id number] Director: Yuri Osullivan PhD, Phone: [phone] at: [address] [id number] Director: Christine Pham MD, Phone: [phone] RENTAL MANAGER Antibody 0.3 AI 0.0-0.9 [facility] Scl-70 (Scleroderma) Antibody <0.2 AI 0.0-0.9 [facility] Signal Recognition Particle (SRP) Negative Negative [facility] Comment on above: This test was develo ped and its performance characteristicsdetermined by [employer]. It has not been cleared orapproved by the Food and Drug Administration.Performed at: [facility] [facility] [place], [place] [id number] Director: Juan Cruz MD, Phone: [phone] Proteinase 3 Ab [Units/volum e] in Serum by ImmunoassayOrdered By: Oz Kincaid on 11-26-2023 Proteinase 3 Ab IA Qn (S) <0.2 units 0.0-0.9 [facility] Ribosomal P Ab [Units/volume ] in SerumOrdered By: Oz Kincaid on 11-26-2023 Ribosomal P Ab Qn (S) <0.2 AI 0.0-0.9 [facility] SRP Autoantibodieson SRP (Signal Recog. Particle) Negative Normal Negative [facility] Comment on above: Result Comment: This test was developed and its performance characteristics determined by [employer]. It has not been cleared or approved by the Food and Drug Administration. Performed at: [employer] [address] [place], [place] [id number] Industrial Engineering Director: Juan Cruz MD, Phone: [phone] PERFORMED BY: [place] [address] PATHOLOGIST ENGINEERING TEAM SUPERVISOR SADAF STANTON M.D. Performed By: #### C #### [address] Scleroderma 70 Antibodieson 11-26-2023 Scleroderma 70 Antibodies <0.2 Normal 0.0-0.9 [facility] Comment on above: Performed By: #### J O1, MITOM2, ANCA PROF, CENTROME, ANTIR, ANTIRIBOSOMAL P, ADNA, BEATRICE, [id number], SJOGRENS, FRITZ, SRP AUTOABS, HISAB ####[facility] , Serum Sushma-1 extractable nucle ar antibody assay (units/volume)Ordered By: Oz Codi on 11-26-2023 Sushma-1 extractable nuclear Ab Qn (S) <0.2 AI 0.0-0.9 [facility] Serum Sjogrens syndrome-A ex tractable nuclear antibody assay (units/volume)Ordered By: Oz Kincaid on 11-26-2023 Sjogrens syndrome-A extractable nuclear Ab Qn (S) <0.2 AI 0.0-0.9 [facility] Serum Sjogrens syndrome-B ex tractable nuclear antibody assay (units/volume)Ordered By: Oz Kincaid on 11-26-2023 Sjogrens syndrome-B extractable nuclear Ab Qn (S) <0.2 AI 0.0-0.9 [facility] Serum Fritz extractable nucl ear antigen (ARIELLE) antibody assay (units/volume)Ordered By: Oz Kincaid on 11-26-2023 Fritz extractable nuclear Ab Qn (S) <0.2 AI 0.0-0.9 [facility] Serum centromere protein B a ntibody assay (units/volume)Ordered By: Oz Kincaid on 11-26-2023 Centromere protein B Ab Qn (S) <0.2 AI 0.0-0.9 [facility] Comment on above: Performed at: [facility] [address] [id number] Director: Yuri Osullivan PhD, Phone: [phone] Serum classic neutrophil cyt oplasmic antibody titer by immunofluorescenceOrdered By: Oz Kincaid on 11-26-2023 Neutrophil cytoplasmic Ab.classic IF (S) [Titer] <1:20 titer Neg:<1:20 [facility] Serum histone IgG antibody a ssay by immunoassay (units/volume)Ordered By: Oz Kincaid on 11-26-2023 Histone IgG IA Qn (S) 0.6 Units 0.0-0.9 [facility] Comment on above: Negative <1.0 Weak P ositive 1.0 - 1.5 Moderate Positive 1.6 - 2.5 Strong Positive >2.5Performed at: [facility] [address] [id number] Director: Christine Pham MD, Phone: [phone] Serum homogeneous pattern an tinuclear antibody (BEATRICE) titerOrdered By: Oz Kincaid on 11-26-2023 Homogenous nuclear Ab pattern (S) [Titer] N/A [facility] Serum mitochondria M2 IgG an tibody assay (units/volume)Ordered By: Oz Kincaid on 11-26-2023 Mitochondria M2 IgG Qn (S) <20.0 Units 0.0-20.0 [facility] Comment on above: Negative 0.0 - 20.0 Equivocal 20.1 - 24.9 Positive >24.9Mitochondrial (M2) Antibodies are found in 90-96% ofpatients with primary biliary cirrhosis.Performed at: [address] [id number] Director: Yuri Osullivan PhD, Phone: [phone] Serum nuclear antibody titer Ordered By: Oz Kincaid on 11-26-2023 Nuclear Ab (S) [Titer] Positive Abnormal . [facility] Comment on above: Negative <1:80 Borde rline 1:80 Positive >1:80 Serum speckled pattern antin uclear antibody (BEATRICE) titerOrdered By: Oz Kincaid on 11-26-2023 Speckled nuclear Ab pattern (S) [Titer] 1:320 High . [facility] Comment on above: ICAP nomenclature: A C-2,4,5,29 Sjogrens Anti-SSA/SSBon 10-29 SS-A/Ro Sjogrens Antibody <0.2 Normal 0.0-0.9 [facility] Comment on above: Performed By: #### J O1, MITOM2, ANCA PROF, CENTROME, ANTIR, ANTIRIBOSOMAL P, ADNA, BEATRICE, [id number], SJOGRENS, FRITZ, SRP AUTOABS, HISAB ####[facility] , SS-B/La Sjogrens Antibody <0.2 Normal 0.0-0.9 [facility] Comment on above: Performed By: #### J O1, MITOM2, ANCA PROF, CENTROME, ANTIR, ANTIRIBOSOMAL P, ADNA, BEATRICE, [id number], SJOGRENS, FRITZ, SRP AUTOABS, HISAB ####[facility] , Aspartate aminotransferase [ Enzymatic activity/volume] in Serum or PlasmaOrdered By: Jonas Ch on 11-15-2023 AST [Catalytic activity/Vol] 45 U/L High 13-39 [facility] Calcium [Mass/volume] in Ser um or PlasmaOrdered By: Jonas hC on 11-15-2023 Calcium [Mass/Vol] 10.7 mg/dL High 8.6-10.3 [facility] Carbon dioxide, total [Moles /volume] in Serum or PlasmaOrdered By: Jonas Ch on 11-15-2023 CO2 [Moles/Vol] 27.7 mmol/L 21.0-31.[address] [facility] Chloride [Moles/volume] in S elliot or PlasmaOrdered By: Jonas Ch on 11-15-2023 Chloride [Moles/Vol] 102 mmol/L 98-107 [facility] Creatinine [Mass/volume] in Serum or PlasmaOrdered By: Jonas Ch on 11-15-2023 Creatinine [Mass/Vol] 1.02 mg/dL 0.60-1.20 [facility] Creatinine [Mass/volume] in UrineOrdered By: Angelique Russell on 11-15-2023 Creatinine (U) [Mass/Vol] 123.00 mg/dL [facility] Comment on above: No reference range e stablished Glucose [Mass/volume] in Ser um or PlasmaOrdered By: Jonas Ch on 11-15-2023 Glucose [Mass/Vol] 158 mg/dL High 70-100 [facility] Comment on above: ADA recommended refe rence rangeRandom Glucose Reference Range is dependent on time and content of last meal. Glucose of more than 200 mg/dL in a nonstressed, ambulatory subject supports the diagnosis of Diabetes Mellitus. Microalbumin [Mass/volume] i n UrineOrdered By: Angelique Russell on 11-15-2023 Albumin DL <= 20 mg/L (U) [Mass/Vol] 3.0 mg/dL High 0.0-1.8 [facility] No Panel InformationOrdered By: Jonas Ch on 11-15-2023 Estimated GFR (CKD-EPI) > 60.0 mL/Min [facility] Creatinine Clearance (Chem N/A [facility] Potassium [Moles/volume] in Serum or PlasmaOrdered By: Jonas Ch on 11-15-2023 Potassium [Moles/Vol] 4.1 mmol/L 3.5-5.1 [facility] Serum or plasma anion gap de terminationOrdered By: Jonas Ch on 11-15-2023 Anion gap [Moles/Vol] 12.4 mmol/L 6.0-15.0 [facility] Sodium [Moles/volume] in Ser um or PlasmaOrdered By: Jonas Ch on 11-15-2023 Sodium [Moles/Vol] 138 mmol/L 136-145 [facility] Thyrotropin [Units/volume] i n Serum or PlasmaOrdered By: Jonas Ch on 11-15-2023 TSH Qn 3.39 m[IU]/L 0.45-5.33 [facility] Urea nitrogen [Mass/volume] in Serum or PlasmaOrdered By: Jonas Ch on 11-15-2023 Urea nitrogen [Mass/Vol] 20 mg/dL 7-25 [facility] Urine microalbumin/creatinin e mass ratioOrdered By: Angelique Russell on 11-15-2023 Albumin/Creatinine DL <= 20 mg/L (U) [Mass ratio] 24.4 mg/g 0.0-30.0 [facility] Comment on above: 30-300 mg/g indicate s an increased risk for diabetic nephropathy. Greater than 300 mg/g is consistent with clinical nephropathy. (Am. J. Kidney Disease 1995, 25:107) No Panel Informationon 11-13 Bedside Glucose 139 [facility] ECG 12 Leadon 11-13-2023 Normal sinus rhythm Normal EKG QTc 457 ms [facility] Work Phone: Basophils Auto (Bld) [#/Vol] Ordered By: Chaka Frye on 11-12-2023 Basophils (Bld) [#/Vol] 0.0 10*3/uL 0.0-0.2 [facility] Basophils/100 WBC Auto (Bld) Ordered By: Chaka Frye on 11-12-2023 Basophils/100 WBC (Bld) 0.5 % . [facility] Calcium [Mass/volume] in Ser um or PlasmaOrdered By: Chaka Frye on 11-12-2023 Calcium [Mass/Vol] 9.5 mg/dL 8.6-10.3 [facility] Carbon dioxide, total [Moles /volume] in Serum or PlasmaOrdered By: Chaka Frye on 11-12-2023 CO2 [Moles/Vol] 30.0 mmol/L 21.0-31.[address] [facility] Chloride [Moles/volume] in S elliot or PlasmaOrdered By: Chaka Frye on 11-12-2023 Chloride [Moles/Vol] 103 mmol/L 98-107 [facility] Creatinine [Mass/volume] in Serum or PlasmaOrdered By: Chaka Frye on 11-12-2023 Creatinine [Mass/Vol] 0.98 mg/dL 0.60-1.20 [facility] Eosinophils Auto (Bld) [#/Vo l]Ordered By: Chaka Frye on 11-12-2023 Eosinophils (Bld) [#/Vol] 0.4 10*3/uL 0.0-0.45 [facility] Eosinophils/100 WBC Auto (Bl d)Ordered By: Chaka Frye on 11-12-2023 Eosinophils/100 WBC (Bld) 5.2 % . [facility] Erythrocyte distribution wid th Auto (RBC) [Ratio]Ordered By: Chaka Frye on 11-12-2023 Erythrocyte distribution width (RBC) [Ratio] 14.0 % 11.9-15.3 [facility] Glucose Glucometer (BldC) [M ass/Vol]Ordered By: Chaka Frye on 11-12-2023 Glucose [Mass/Vol] 137 mg/dL [facility] Comment on above: Random Glucose Refer ence Range is dependent on time and content of last meal. Glucose of more than 200 mg/dL in a nonstressed, ambulatory subject supports the diagnosis of Diabetes Mellitus. Glucose [Mass/volume] in Ser um or PlasmaOrdered By: Chaka Frye on 11-12-2023 Glucose [Mass/Vol] 102 mg/dL High 70-100 [facility] Comment on above: ADA recommended refe rence rangeRandom Glucose Reference Range is dependent on time and content of last meal. Glucose of more than 200 mg/dL in a nonstressed, ambulatory subject supports the diagnosis of Diabetes Mellitus. Hematocrit Auto (Bld) [Volum e fraction]Ordered By: Chaka Frye on 11-12-2023 Hematocrit (Bld) [Volume fraction] 44.6 % 34.0-46.4 [facility] Hemoglobin [Mass/volume] in BloodOrdered By: Chaka Frye on 11-12-2023 Hemoglobin (Bld) [Mass/Vol] 14.6 g/dL 11.8-15.4 [facility] Leukocytes [#/volume] correc deepika for nucleated erythrocytes in Blood by Automated counOrdered By: Chaka Frye on 11-12-2023 WBC corrected for nucl RBC Auto (Bld) [#/Vol] 7.4 10*3/uL 3.8-11.6 [facility] Lymphocytes Auto (Bld) [#/Vo l]Ordered By: Chaka Frye on 11-12-2023 Lymphocytes (Bld) [#/Vol] 2.3 10*3/uL 1.00-4.8 [facility] Lymphocytes/100 WBC Auto (Bl d)Ordered By: Chaka Frye on 11-12-2023 Lymphocytes/100 WBC (Bld) 30.8 % . [facility] MCH Auto (RBC) [Entitic mass ]Ordered By: Chaka Frye on 11-12-2023 MCH (RBC) [Entitic mass] 32.2 pg 24.7-34.3 [facility] MCHC Auto (RBC) [Mass/Vol]Or dered By: Chaka Frye on 11-12-2023 MCHC (RBC) [Mass/Vol] 32.8 g/dL 32.0-35.0 [facility] MCV Auto (RBC) [Entitic vol] Ordered By: Chaka Frye on 11-12-2023 MCV (RBC) [Entitic vol] 98.1 fL 80-[address] [facility] Magnesium [Mass/volume] in S elliot or PlasmaOrdered By: Chaka Frye on 11-12-2023 Magnesium [Mass/Vol] 1.9 mg/dL 1.9-2.7 [facility] Monocytes Auto (Bld) [#/Vol] Ordered By: Chaka Frye on 11-12-2023 Monocytes (Bld) [#/Vol] 0.8 10*3/uL 0.0-0.8 [facility] Monocytes/100 WBC Auto (Bld) Ordered By: Chaka Frye on 11-12-2023 Monocytes/100 WBC (Bld) 11.0 % . [facility] Neutrophils Auto (Bld) [#/Vo l]Ordered By: Chaka Frye on 11-12-2023 Neutrophils (Bld) [#/Vol] 3.9 10*3/uL 1.8-7.7 [facility] Neutrophils/100 WBC Auto (Bl d)Ordered By: Chaka Frye on 11-12-2023 Neutrophils/100 WBC (Bld) 52.5 % . [facility] No Panel InformationOrdered By: Chaka Frye on 11-12-2023 Estimated GFR (CKD-EPI) > 60.0 mL/Min [facility] Creatinine Clearance (Chem 63.39 [facility] Nucleated erythrocytes [Pres ence] in Blood by Automated countOrdered By: Chaka Frye on 11-12-2023 Nucleated RBC Auto Ql (Bld) 0.1 /100{WBC} 0-0.5 [facility] Platelet mean volume Auto (B ld) [Entitic vol]Ordered By: Chkaa Frye on 11-12-2023 Platelet mean volume (Bld) [Entitic vol] 9.1 fL 6.3-10.7 [facility] Platelets Auto (Bld) [#/Vol] Ordered By: Chaka Frye on 11-12-2023 Platelets (Bld) [#/Vol] 155 10*3/uL 150-450 [facility] Potassium [Moles/volume] in Serum or PlasmaOrdered By: Chaka Frye on 11-12-2023 Potassium [Moles/Vol] 4.4 mmol/L 3.5-5.1 [facility] RBC Auto (Bld) [#/Vol]Ordere d By: Chaka Frye on 11-12-2023 RBC (Bld) [#/Vol] 4.54 10*6/uL 3.60-5.[address] [facility] Serum or plasma anion gap de terminationOrdered By: Chaka Frye on 11-12-2023 Anion gap [Moles/Vol] 10.4 mmol/L 6.0-15.0 [facility] Sodium [Moles/volume] in Ser um or PlasmaOrdered By: Chaka Frye on 11-12-2023 Sodium [Moles/Vol] 139 mmol/L 136-145 [facility] Urea nitrogen [Mass/volume] in Serum or PlasmaOrdered By: Chaka Frye on 11-12-2023 Urea nitrogen [Mass/Vol] 18 mg/dL 7-25 [facility] WBC Auto (Bld) [#/Vol]Ordere d By: Chaka Frye on 11-12-2023 WBC (Bld) [#/Vol] 7.4 10*3/uL 3.8-11.6 [facility] Glucose mean value [Mass/vol ume] in Blood Estimated from glycated hemoglobinOrdered By: Jluis Campos on 11-11-2023 Average glucose Estimated from glycated hemoglobin (Bld) [Mass/Vol] 143 mg/dL [facility] Hemoglobin A1c percentageOrd ered By: Jluis Campos on 11-11-2023 HbA1c (Bld) [Mass fraction] 6.6 % High 4.3-5.6 [facility] Comment on above: Increased risk for d iabetes: 5.7 - 6.4diabetes: >6.4glycemic control for adults with diabetes: <7.0 LACTATE AND PYRUVATEon 11-10 LACTIC ACID, PLASMA . [facility] Comment on above: Test not performed. Supernatant is required. CONTACTED YOUR FACILity on 11-05-2023 PYRUVIC ACID, BLOOD . [facility] Comment on above: Test not performed [facility] No Panel InformationOrdered By: Kirt Renae on 11-11-2023 RENTAL MANAGER Antibody 0.2 AI 0.0-0.9 [facility] Serum Sushma-1 extractable nucle ar antibody assay (units/volume)Ordered By: Kirt Renae on 11-11-2023 Sushma-1 extractable nuclear Ab Qn (S) <0.2 AI 0.0-0.9 [facility] Comment on above: Performed at: [facility] [address] [id number] Director: Yuri Osullivan PhD, Phone: [phone] Serum Sjogrens syndrome-A ex tractable nuclear antibody assay (units/volume)Ordered By: Kirt Renae on 11-11-2023 Sjogrens syndrome-A extractable nuclear Ab Qn (S) <0.2 AI 0.0-0.9 [facility] Serum Sjogrens syndrome-B ex tractable nuclear antibody assay (units/volume)Ordered By: Kirt Renae on 11-11-2023 Sjogrens syndrome-B extractable nuclear Ab Qn (S) <0.2 AI 0.0-0.9 [facility] Serum or plasma thyroglobuli n antibody assay (units/volume)Ordered By: Kirt Renae on 11-11-2023 Thyroglobulin Ab Qn [IU]/mL 0.0-0.[address] [facility] Comment on above: Thyroglobulin Antibo dy measured by [facility]MethodologyIt should be noted that the presence of thyroglobulinantibodies may not be pathogenic nor diagnostic, especiallyat very low levels. The assay stoker installer has found thatfour percent of individuals without evidence of thyroiddisease or autoimmunity will have positive TgAb levels upto 4 IU/mL.Performed at: [facility] [address] [id number] Director: Yuri Osullivan PhD, Phone: [phone] Serum or plasma thyroperoxid ase antibody assay (units/volume)Ordered By: Kirt Renae on 11-11-2023 TPO Ab Qn [IU]/mL 0-34 [facility] Thyroxine (T4) free [Mass/vo lume] in Serum or PlasmaOrdered By: Kirt Renae on 11-11-2023 Free T4 [Mass/Vol] 0.83 ng/dL 0.61-1.12 [facility] Triiodothyronine (T3) Free [ Mass/volume] in Serum or PlasmaOrdered By: Kirt Renae on 11-11-2023 Free T3 [Mass/Vol] 2.60 pg/mL 2.50-3.90 [facility] Alanine aminotransferase [En zymatic activity/volume] in Serum or PlasmaOrdered By: Rl Villavicencio on 11-10-2023 ALT [Catalytic activity/Vol] 19 U/L 7-52 [facility] Albumin [Mass/volume] in Ser um or Plasma by Bromocresol green (BCG) dye binding methoOrdered By: Rl Villavicencio on 11-10-2023 Albumin BCG dye [Mass/Vol] 4.2 g/dL 3.5-5.7 [facility] Alkaline phosphatase [Enzyma tic activity/volume] in Serum or PlasmaOrdered By: Rl Villavicencio on 11-10-2023 ALP [Catalytic activity/Vol] 60 U/L 34-104 [facility] [facility] Aspartate aminotransferase [ Enzymatic activity/volume] in Serum or PlasmaOrdered By: Rl Villavicencio on 11-10-2023 AST [Catalytic activity/Vol] 29 U/L 13-39 [facility] Bacteria [Presence] in Urine by AutomatedOrdered By: Rl Villavicencio on 11-10-2023 Bacteria Auto Ql (U) 1+ [HPF] High None Seen [facility] [place] Basophils Auto (Bld) [#/Vol] Ordered By: Rl Villavicencio on 11-10-2023 Basophils (Bld) [#/Vol] 0.1 10*3/uL 0.0-0.2 [facility] Basophils/100 WBC Auto (Bld) Ordered By: Rl Villavicencio on 11-10-2023 Basophils/100 WBC (Bld) 0.9 % . [facility] Bilirubin Test strip Ql (U)O rdered By: Rl Villavicencio on 11-10-2023 Bilirubin Ql (U) Negative Negative [facility] Bilirubin.total [Mass/volume ] in Serum or PlasmaOrdered By: Rl Villavicencio on 11-10-2023 Bilirubin [Mass/Vol] 0.4 mg/dL 0.3-1.0 [facility] [place] C reactive protein [Mass/vol ume] in Serum or PlasmaOrdered By: Kirt Renae on 11-10-2023 CRP [Mass/Vol] < 0.5 mg/dL 0.0-0.5 [facility] Calcium [Mass/volume] in Ser um or PlasmaOrdered By: Rl Villavicencio on 11-10-2023 Calcium [Mass/Vol] 9.6 mg/dL 8.6-10.3 [facility] Carbon dioxide, total [Moles /volume] in Serum or PlasmaOrdered By: Rl Villavicencio on 11-10-2023 CO2 [Moles/Vol] 25.4 mmol/L 21.0-31.[address] [facility] Chloride [Moles/volume] in S elliot or PlasmaOrdered By: Rl Villavicencio on 11-10-2023 Chloride [Moles/Vol] 105 mmol/L 98-107 [facility] [place] Color Auto (U)Ordered By: Claudio Villavicencio on 11-10-2023 Color (U) Light-yellow Yellow [facility] Creatine kinase [Enzymatic a ctivity/volume] in Serum or PlasmaOrdered By: Rl Villavicencio on 11-10-2023 CK [Catalytic activity/Vol] 69 U/L 30-223 [facility] Creatinine [Mass/volume] in Serum or PlasmaOrdered By: Rl Villavicencio on 11-10-2023 Creatinine [Mass/Vol] 0.93 mg/dL 0.60-1.20 [facility] Eosinophils Auto (Bld) [#/Vo l]Ordered By: Rl Villavicencio on 11-10-2023 Eosinophils (Bld) [#/Vol] 0.3 10*3/uL 0.0-0.45 [facility] Eosinophils/100 WBC Auto (Bl d)Ordered By: Rl Villavicencio on 11-10-2023 Eosinophils/100 WBC (Bld) 3.7 % . [facility] Epithelial cells.squamous [# /area] in Urine sediment by Automated countOrdered By: Rl Villavicencio on 11-10-2023 Epithelial cells.squamous Auto (Urine sed) [#/Area] 5-9 [HPF] High 0-2 [facility] Erythrocyte distribution wid th Auto (RBC) [Ratio]Ordered By: Rl Villavicencio on 11-10-2023 Erythrocyte distribution width (RBC) [Ratio] 13.5 % 11.9-15.3 [facility] Erythrocyte sedimentation ra te by Photometric methodOrdered By: Kirt Renae on 11-10-2023 ESR Photometric method (Bld) [Velocity] 40 mm/hr High 0-29 [facility] Erythrocytes [#/area] in Uri ne sediment by Automated countOrdered By: Rl Villavicencio on 11-10-2023 RBC Auto (Urine sed) [#/Area] 5-9 [HPF] High 0-4 [facility] Folate [Mass/volume] in Seru m or PlasmaOrdered By: Kirt Renae on 11-10-2023 Folate [Mass/Vol] 19.6 ng/mL >5.9 [facility] Comment on above: Folate reference ran ge: >5.9 ng/mlThe WHO technical consultation on folate and vitamin [id number] has determined that folate concentrations lessthan 4 ng/ml are considered deficient. Globulin Calc (S) [Mass/Vol] Ordered By: Rl Villavicencio on 11-10-2023 Globulin (S) [Mass/Vol] 2.9 g/dL [facility] Glucose [Mass/volume] in Ser um or PlasmaOrdered By: Rl Villavicencio on 11-10-2023 Glucose [Mass/Vol] 95 mg/dL 70-100 [facility] Comment on above: ADA recommended refe rence rangeRandom Glucose Reference Range is dependent on time and content of last meal. Glucose of more than 200 mg/dL in a nonstressed, ambulatory subject supports the diagnosis of Diabetes Mellitus. Glucose [Mass/volume] in Uri ne by Test stripOrdered By: Rl Villavicencio on 11-10-2023 Glucose Test strip (U) [Mass/Vol] 1000 mg/dL High Normal [facility] Hematocrit Auto (Bld) [Volum e fraction]Ordered By: Rl Villavicencio on 11-10-2023 Hematocrit (Bld) [Volume fraction] 44.9 % 34.0-46.4 [facility] Hemoglobin Test strip Ql (U) Ordered By: Rl Villavicencio on 11-10-2023 Hemoglobin Ql (U) Negative Negative [facility] Hemoglobin [Mass/volume] in BloodOrdered By: Rl Villavicencio on 11-10-2023 Hemoglobin (Bld) [Mass/Vol] 15.0 g/dL 11.8-15.4 [facility] Hyaline casts [#/area] in Ur ine sediment by Automated countOrdered By: Rl Villavicencio on 11-10-2023 Hyaline casts Auto (Urine sed) [#/Area] None [LPF] 0-8 [facility] Ketones Test strip Ql (U)Ord ered By: Rl Villavicencio on 11-10-2023 Ketones Ql (U) Negative Negative [facility] Leukocyte clumps [Presence] in Urine by AutomatedOrdered By: Rl Villavicencio on 11-10-2023 Leukocyte clumps Auto Ql (U) Occasional [LPF] High None Seen [facility] Leukocyte esterase [Presence ] in Urine by Test stripOrdered By: Rl Villavicencio on 11-10-2023 Leukocyte esterase Test strip Ql (U) 4+ High Negative [facility] Leukocytes [#/area] in Urine sediment by Automated countOrdered By: Rl Villavicencio on 11-10-2023 WBC Auto (Urine sed) [#/Area] 20-49 [HPF] High 0-4 [facility] Leukocytes [#/volume] correc deepika for nucleated erythrocytes in Blood by Automated counOrdered By: Rl Villavicencio on 11-10-2023 WBC corrected for nucl RBC Auto (Bld) [#/Vol] 8.5 10*3/uL 3.8-11.6 [facility] Lymphocytes Auto (Bld) [#/Vo l]Ordered By: Rl Villavicencio on 11-10-2023 Lymphocytes (Bld) [#/Vol] 2.2 10*3/uL 1.00-4.8 [facility] Lymphocytes/100 WBC Auto (Bl d)Ordered By: Rl Villavicencio on 11-10-2023 Lymphocytes/100 WBC (Bld) 26.0 % . [facility] MCH Auto (RBC) [Entitic mass ]Ordered By: Rl Villavicencio on 11-10-2023 MCH (RBC) [Entitic mass] 32.6 pg 24.7-34.3 [facility] MCHC Auto (RBC) [Mass/Vol]Or dered By: Rl Villavicencio on 11-10-2023 MCHC (RBC) [Mass/Vol] 33.3 g/dL 32.0-35.0 [facility] MCV Auto (RBC) [Entitic vol] Ordered By: Rl Villavicencio on 11-10-2023 MCV (RBC) [Entitic vol] 97.8 fL 80-[address] [facility] Magnesium [Mass/volume] in S elliot or PlasmaOrdered By: Rl Villavicencio on 11-10-2023 Magnesium [Mass/Vol] 1.7 mg/dL Low 1.9-2.7 [facility] Monocyte distribution width [Entitic volume] in Blood by AutomatedOrdered By: Rl Villavicencio on 11-10-2023 Monocyte distribution width Auto (Bld) [Entitic vol] 19.74 % 0.00-20.00 [facility] Monocytes Auto (Bld) [#/Vol] Ordered By: Rl Villavicencio on 11-10-2023 Monocytes (Bld) [#/Vol] 0.7 10*3/uL 0.0-0.8 [facility] Monocytes/100 WBC Auto (Bld) Ordered By: Rl Villavicencio on 11-10-2023 Monocytes/100 WBC (Bld) 8.2 % . [facility] Neutrophils Auto (Bld) [#/Vo l]Ordered By: Rl Villavicencio on 11-10-2023 Neutrophils (Bld) [#/Vol] 5.2 10*3/uL 1.8-7.7 [facility] Neutrophils/100 WBC Auto (Bl d)Ordered By: Rl Villavicencio on 11-10-2023 Neutrophils/100 WBC (Bld) 61.2 % . [facility] Nitrite Test strip Ql (U)Ord ered By: Rl Villavicencio on 11-10-2023 Nitrite Ql (U) Negative Negative [facility] No Panel InformationOrdered By: Kirt Renae on 11-10-2023 Bedside Glucose Comment Glu2: cleaned meter [facility] No Panel InformationOrdered By: Rl Villavicencio on 11-10-2023 Estimated GFR (CKD-EPI) > 60.0 mL/Min [facility] Creatinine Clearance (Chem 66.28 [facility] Nucleated erythrocytes [Pres ence] in Blood by Automated countOrdered By: Rl Villavicencio on 11-10-2023 Nucleated RBC Auto Ql (Bld) 0.1 /100{WBC} 0-0.5 [facility] Platelet mean volume Auto (B ld) [Entitic vol]Ordered By: Rl Villavicencio on 11-10-2023 Platelet mean volume (Bld) [Entitic vol] 8.7 fL 6.3-10.7 [facility] Platelets Auto (Bld) [#/Vol] Ordered By: Rl Villavicencio on 11-10-2023 Platelets (Bld) [#/Vol] 149 10*3/uL Low 150-450 [facility] Potassium [Moles/volume] in Serum or PlasmaOrdered By: Rl Villavicencio on 11-10-2023 Potassium [Moles/Vol] 4.6 mmol/L 3.5-5.1 [facility] Comment on above: Hemolysis is present at a level that could interfere with the result.Contact lab if redraw is required Protein Test strip (U) [Mass /Vol]Ordered By: Rl Villavicencio on 11-10-2023 Protein (U) [Mass/Vol] Negative Negative [facility] Protein [Mass/volume] in Ser um or PlasmaOrdered By: Rl Villavicencio on 11-10-2023 Protein [Mass/Vol] 7.1 g/dL 6.4-8.9 [facility] RBC Auto (Bld) [#/Vol]Ordere d By: Rl Villavicencio on 11-10-2023 RBC (Bld) [#/Vol] 4.59 10*6/uL 3.60-5.[address] [facility] Serum or plasma albumin/glob ulin mass ratioOrdered By: Rl Villavicencio on 11-10-2023 Albumin/Globulin [Mass ratio] 1.4 {ratio} [facility] Serum or plasma anion gap de terminationOrdered By: Rl Villavicencio on 11-10-2023 Anion gap [Moles/Vol] 11.2 mmol/L 6.0-15.0 [facility] Sodium [Moles/volume] in Ser um or PlasmaOrdered By: Rl Villavicencio on 11-10-2023 Sodium [Moles/Vol] 137 mmol/L 136-145 [facility] Specific gravity Test strip (U) [Rel density]Ordered By: Rl Villavicencio on 11-10-2023 Specific gravity (U) [Rel density] 1.007 1.001-1.03 0 [facility] Thyrotropin [Units/volume] i n Serum or PlasmaOrdered By: Jluis Campos on 11-10-2023 TSH Qn 5.73 m[IU]/L High 0.45-5.33 [facility] Urea nitrogen [Mass/volume] in Serum or PlasmaOrdered By: Rl Villavicencio on 11-10-2023 Urea nitrogen [Mass/Vol] 14 mg/dL 7-25 [facility] Urine appearanceOrdered By: Rl Villavicencio on 11-10-2023 Appearance (U) Clear Clear [facility] Urine culture routineOrdered By: Rl Villavicencio on 11-10-2023 Bacteria identified Cx Nom (U) 2 Days [facility] Urobilinogen Test strip (U) [Mass/Vol]Ordered By: Rl Villavicencio on 11-10-2023 Urobilinogen (U) [Mass/Vol] Normal mg/dL Normal [facility] Vitamin B12 ser/plasOrdered By: Kirt Renae on 11-10-2023 Cobalamin (Vitamin B12) [Mass/Vol] 306 pg/mL 180-914 [facility] Vitamin D+Metabolites [Mass/ volume] in Serum or PlasmaOrdered By: Jluis Campos on 11-10-2023 Vitamin D+Metabolites [Mass/Vol] 61.3 ng/mL 30-100 [facility] Comment on above: Hemolysis is present at a level that could interfere with the result.Contact lab if redraw is requiredVITAMIN D STATUS 25(OH)VITAMIN D RANGE (ng/mL) Deficient <20 Insufficient 20 to <30Sufficient 30 to 100Reference: Sandra MF,Felisha SCANLON, Leon SHERWOOD, et al. Evaluation,treatment, and prevention of vitamin D deficiency; an Endocrine Society clinical practice guideline. JCEM. 2010; 96(7):1911-30. WBC Auto (Bld) [#/Vol]Ordere d By: Rl Villavicencio on 11-10-2023 WBC (Bld) [#/Vol] 8.5 10*3/uL 3.8-11.6 [facility] pH Test strip (U)Ordered By: Rl Villavicencio on 11-10-2023 pH (U) 6.0 [pH] 5.0-9.0 [facility] Glucose Glucometer (BldC) [M ass/Vol]Ordered By: OSORIO WHITE on 11-09-2023 Glucose [Mass/Vol] 139 mg/dL [facility] Comment on above: Random Glucose Refer ence Range is dependent on time and content of last meal. Glucose of more than 200 mg/dL in a nonstressed, ambulatory subject supports the diagnosis of Diabetes Mellitus. Carbon dioxide, total [Moles /volume] in Serum or PlasmaOrdered By: Jonas Ch on 11-05-2023 CO2 [Moles/Vol] 28.6 mmol/L 21.0-31.[address] [facility] Chloride [Moles/volume] in S elliot or PlasmaOrdered By: Jonas Ch on 11-05-2023 Chloride [Moles/Vol] 104 mmol/L 98-107 [facility] Potassium [Moles/volume] in Serum or PlasmaOrdered By: Jonas Ch on 11-05-2023 Potassium [Moles/Vol] 4.6 mmol/L 3.5-5.1 [facility] Serum or plasma anion gap de terminationOrdered By: Jonas Ch on 11-05-2023 Anion gap [Moles/Vol] 11.0 mmol/L 6.0-15.0 [facility] Sodium [Moles/volume] in Ser um or PlasmaOrdered By: Jonas Ch on 11-05-2023 Sodium [Moles/Vol] 139 mmol/L 136-145 [facility] Alanine aminotransferase [En zymatic activity/volume] in Serum or PlasmaOrdered By: Oz Kincaid on 10-30-2023 ALT [Catalytic activity/Vol] 23 U/L 7-52 [facility] Albumin [Mass/volume] in Ser um or PlasmaOrdered By: Oz Kincaid on 10-30-2023 Albumin [Mass/Vol] 4.2 g/dL 2.9-4.4 [facility] Albumin/Protein.total in 24 hour Urine by ElectrophoresisOrdered By: Oz Kincaid on 10-30-2023 Albumin Elph (24H U) [Mass fraction] 35.7 % . [facility] Alpha tocopherol [Mass/volum e] in Serum or PlasmaOrdered By: Oz Kincaid on 10-30-2023 Alpha tocopherol [Mass/Vol] 8.7 mg/L Low 9.0-29.0 [facility] Comment on above: This test was develo ped and its performance characteristicsdetermined by [employer]. It has not been cleared orapproved by the Food and Drug Administration. Aspartate aminotransferase [ Enzymatic activity/volume] in Serum or PlasmaOrdered By: Oz Kincaid on 10-30-2023 AST [Catalytic activity/Vol] 26 U/L 13-39 [facility] Borrelia burgdorferi Ab [Int erpretation] in SerumOrdered By: Oz Kincaid on 10-30-2023 B. burgdorferi Ab (S) [Interp] N/A [facility] Borrelia burgdorferi IgG Ab [Presence] in Serum or Plasma by ImmunoassayOrdered By: Oz Kincaid on 10-30-2023 B. burgdorferi IgG IA Ql N/A [facility] Borrelia burgdorferi IgG+IgM Ab [Presence] in Serum by ImmunoassayOrdered By: Oz Kincaid on 10-30-2023 B. burgdorferi IgG+IgM IA Ql (S) Negative Negative [facility] Comment on above: Lyme antibodies not detected. Reflex testing is notindicated.No laboratory evidence of infection with B. burgdorferi(Lyme disease). Negative results may occur in patientsrecently infected (less than or equal to 14 days) with B.burgdorferi. If recent infection is suspected, repeattesting on a new sample collected in 7 to 14 days isrecommended.Performed at: [address] [id number] Director: Yuri Osullivan PhD, Phone: [phone] Lyme antibodies not detected. Reflex testing is notindicated.No laboratory evidence of infection with B. burgdorferi(Lyme disease). Negative results may occur in patientsrecently infected (less than or equal to 14 days) with B.burgdorferi. If recent infection is suspected, repeattesting on a new sample collected in 7 to 14 days isrecommended.Performed at: [address] [id number] Director: Yuri Osullivan PhD, Phone: [phone] Lyme antibodies not detected. Reflex testing is [...] in 7 to 14 days isrecommended.Performed at: [address] [id number] Director: Yuri Osullivan PhD, Phone: [phone] Borrelia burgdorferi IgM Ab [Presence] in Serum or Plasma by ImmunoassayOrdered By: Oz Kincaid on 10-30-2023 B. burgdorferi IgM IA Ql N/A [facility] C reactive protein [Mass/vol ume] in Serum or Plasma by High sensitivity methodOrdered By: Oz Kincaid on 10-30-2023 CRP High sensitivity method [Mass/Vol] 2.2 mg/L High 0.0-0.9 [facility] Comment on above: Cardiovascular Risk [...] on 10-30-2023 CT biopsy 5.0 U/L 3.3-10.3 [facility] Comment on above: Performed at: [address] Director: Yuri Osullivan PhD, Phone: [phone] Creatine kinase [Enzymatic a ctivity/volume] in Serum or PlasmaOrdered By: Oz Kincaid on 10-30-2023 CK [Catalytic activity/Vol] 46 U/L 30-223 [facility] Erythrocyte sedimentation ra te by Photometric methodOrdered By: Oz Kincaid on 10-30-2023 ESR Photometric method (Bld) [Velocity] 26 mm/hr 0-29 [facility] Folate [Mass/volume] in Seru m or PlasmaOrdered By: Oz Kincaid on 10-30-2023 Folate [Mass/Vol] 34.0 ng/mL >5.9 [facility] Comment on above: Folate reference ran ge: >5.9 ng/mlThe WHO technical consultation on folate and vitamin [id number] has determined that folate concentrations lessthan 4 ng/ml are considered deficient. Gamma globulin/Protein.total in 24 hour Urine by ElectrophoresisOrdered By: Oz Kincaid on 10-30-2023 Gamma globulin Elph (24H U) [Mass fraction] 23.2 % . [facility] Gamma-tocopherol measurement (mass/volume)Ordered By: Oz Kincaid on 10-30-2023 Gamma tocopherol [Mass/Vol] 0.7 mg/L 0.5-4.9 [facility] Comment on above: This test was develo ped and its performance characteristicsdetermined by [employer]. It has not been cleared orapproved by the Food and Drug Administration.Reference intervals for alpha and gamma-tocopheroldetermined from National Health and Nutrition ExaminationSurvey, 7770-5218. Individuals with alpha-tocopherol levelsless than 5.0 mg/L are considered vitamin E deficient. Glucose mean value [Mass/vol ume] in Blood Estimated from glycated hemoglobinOrdered By: Oz Kincaid on 10-30-2023 Average glucose Estimated from glycated hemoglobin (Bld) [Mass/Vol] 143 mg/dL [facility] Hemoglobin A1c percentageOrd ered By: Oz Kincaid on 10-30-2023 HbA1c (Bld) [Mass fraction] 6.6 % High 4.3-5.6 [facility] Comment on above: Increased risk for d iabetes: 5.7 - 6.4diabetes: >6.4glycemic control for adults with diabetes: <7.0 IgA [Mass/volume] in Serum o r PlasmaOrdered By: Oz Kincaid on 10-30-2023 IgA [Mass/Vol] 265 mg/dL 87-352 [facility] IgG [Mass/volume] in Serum o r PlasmaOrdered By: Oz Kincaid on 10-30-2023 IgG [Mass/Vol] 1034 mg/dL 586-1602 [facility] IgM [Mass/volume] in Serum o r PlasmaOrdered By: Oz Kincaid on 10-30-2023 IgM [Mass/Vol] 48 mg/dL 26-217 [facility] Comment on above: Performed at: [facility] [address] [id number] Director: Yuri Osullivan PhD, Phone: [phone] Immunofixation for UrineOrde red By: Oz Kincaid on 10-30-2023 Interpretation Immunofixation (U) [Interp] See comment . [facility] Comment on above: No monoclonality det ected.Performed at: [facility] [address] [id number] Director: Yuri Osullivan PhD, Phone: [phone] No Panel InformationOrdered By: Oz Kincaid on 10-30-2023 Anti-Nuclear Antibody Comment 2 See comment . [facility] Comment on above: Pattern Potential Di charlese Association Homogeneous Systemic Lupus Erythematosus, Drug Induced Systemic Lupus Erythematosus, Chronic Autoimmune hepatitis, Juvenile Idiopathic Arthritis Speckled Sjogren Syndrome, Systemic Lupus Erythematosus, Subacute Cutaneous Lupus, Lupus, Congenital Heart Block, Mixed Connective Tissue Disease, Scleroderma-diffuse, Scleroderma-Autoimmune Myositis Overlap Syndrome, Systemic Lupus Yrkpwfvtymfjc-Fgblhlvvune-Kzzicgtdag Myositis Overlap Syndrome, Systemic Autoimmune Rheumatic Disease, [...] Linear Scleroderma, Antiphospholipid Syndrome Performed at: - [employer] [address] [id number] Director: Christine Pham MD, Phone: [phone] at: [facility] [employer] SalonFrank [place]ille [id number] [place], [place] [id number] Director: Yuri Osullivan PhD, Phone: [phone] Pattern Potential Di sease Association Homogeneous Systemic Lupus Erythematosus, Drug Induced Systemic Lupus Erythematosus, Chronic Autoimmune hepatitis, Juvenile Idiopathic Arthritis Speckled Sjogren Syndrome, Systemic Lupus Erythematosus, Subacute Cutaneous Lupus, Lupus, Congenital Heart Block, Mixed Connective Tissue Disease, Scleroderma-diffuse, Scleroderma-Autoimmune Myositis Overlap Syndrome, Systemic Lupus Dgydhvnptzncb-Qpzannvocey-Xjzqstcfyx Myositis Overlap Syndrome, Systemic Autoimmune Rheumatic Disease, [...] Cytopenias, Linear Scleroderma, Antiphospholipid Syndrome Performed at: [address] [id number] Director: Christine Pham MD, Phone: [phone] at: [address] [id number] Director: Yuri Osullivan PhD, Phone: [phone] Pattern Potential Disease Association Homogeneous Systemic Lupus Erythematosus, Drug Induced Systemic Lupus Erythematosus, Chronic Autoimmune hepatitis, Juvenile Idiopathic Arthritis Speckled Sjogren Syndrome, Systemic Lupus Erythematosus, Subacute Cutaneous Lupus, Lupus, Congenital Heart Block, Mixed Connective Tissue Disease, Scleroderma-diffuse, Scleroderma-Autoimmune Myositis Overlap Syndrome, Systemic Lupus Ndqgsxwsdzfji-Vfmekzpichc-Azerizzmva Myositis Overlap Syndrome, Systemic Autoimmune Rheumatic Disease, [...] Cytopenias, Linear Scleroderma, Antiphospholipid Syndrome Performed at: [facility] [place], [place] [id number] Director: Yuri Osullivan PhD, Phone: [phone] at: [facility] [id number] [place], [place] [id number] Director: Christine Pham MD, Phone: [phone] --- 11/06/23 1236 ---BEATRICE CALEB Note 1 previously reported as: Pattern Potential Disease Association Homogeneous Systemic Lupus Erythematosus, Drug Induced Systemic Lupus Erythematosus, Chronic Autoimmune hepatitis, Juvenile Idiopathic Arthritis Speckled Sjogren Syndrome, Systemic Lupus Erythematosus, Subacute Cutaneous Lupus, Lupus, Congenital Heart Block, Mixed Connective Tissue Disease, Scleroderma-diffuse, Scleroderma-Autoimmune Myositis Overlap Syndrome, Systemic Lupus Zqasjinpzxyhv-Onddutyhhje-Naqjgrpdiy Myositis Overlap Syndrome, Systemic Autoimmune Rheumatic Disease, [...] (more content not included)... Lactate/Pyruvate Interpretation N/A [facility] Plasma Lactic Acid, Venous See comment . [facility] Comment on above: Test not performed. Supernatant is required.CONTACTED YOUR FACILity on 11-05-2023 Protein Electrophoresis M-Meir Not observed g/dL Not Observed [facility] Protein Electrophoresis Note See comment . [facility] Comment on above: Protein electrophore sis scan will follow via computer,mail, or body builder apprentice delivery. Pyruvic Acid See comment . [facility] Comment on above: Test not performed Serum Immunofixation See comment . [facility] Comment on above: No monoclonality det ected. Urine Random Prot Electrophor Note See comment . [facility] Comment on above: Protein electrophore sis scan will follow via computer,mail, or body builder apprentice delivery.Performed at: [facility] [employer] [id number] Director: Yuri Osullivan PhD, Phone: [phone] Whole Blood Zinc 909 ug/dL High 440-[address] [facility] Comment on above: This test was develo ped and its performance characteristicsdetermined by [employer]. It has not been cleared orapproved by the Food and Drug Administration.Performed at: [facility] [employer] [id number] Director: Christine Pham MD, Phone: [phone] This test was develo ped and its performance characteristicsdetermined by [employer]. It has not been cleared orapproved by the Food and Drug Administration.Performed at: [facility] [employer] [id number] Director: Christine Pham MD, Phone: [phone] This test was developed and its performance characteristicsdetermined by [employer]. It has not been cleared orapproved by the Food and Drug Administration. --- 11/06/23 1236 ---Zinc,WB previously reported as: 909 H ug/dLThis test was developed and its performance characteristicsdetermined by [employer]. It has not been cleared orapproved by the Food and Drug Administration.Performed at: [facility] [employer] [id number] Director: Christine Pham MD, Phone: [phone] Protein [Mass/volume] in Ser um or PlasmaOrdered By: Oz Kincaid on 10-30-2023 Protein [Mass/Vol] 7.7 g/dL 6.0-8.5 [facility] Protein [Mass/volume] in Uri neOrdered By: Oz Kincaid on 10-30-2023 Protein (U) [Mass/Vol] 28.8 mg/dL Not Estab. [facility] Protein.monoclonal/Protein.t otal in 24 hour Urine by ElectrophoresisOrdered By: Oz Kincaid on 10-30-2023 Protein.monoclonal Elph (24H U) [Mass fraction] Not observed % Not Observed [facility] Reagin Ab [Presence] in Seru m by RPROrdered By: Oz Kincaid on 10-30-2023 Reagin Ab RPR Ql (S) Non-Reactive Non Reactive [facility] Comment on above: Performed at: - [facility] [address] [id number] Director: Yuri Osullivan PhD, Phone: [phone] Serum West Nile virus IgG an tibody detection by immunoassayOrdered By: Oz Kincaid on 10-30-2023 West Nile virus IgG IA Ql (S) Negative Negative [facility] Serum West Nile virus IgM an tibody detection by immunoassayOrdered By: Oz Kincaid on 10-30-2023 West Nile virus IgM IA Ql (S) Negative Negative [facility] Comment on above: Performed at: [facility] [address] [id number] Director: Christine Pham MD, Phone: [phone] Serum globulin measurement ( mass/volume)Ordered By: Oz Kincaid on 10-30-2023 Globulin (S) [Mass/Vol] 3.5 g/dL 2.2-3.9 [facility] Serum homogeneous pattern an tinuclear antibody (BEATRICE) titerOrdered By: Oz Kincaid on 10-30-2023 Homogenous nuclear Ab pattern (S) [Titer] N/A [facility] Serum nuclear antibody titer Ordered By: Oz Kincaid on 10-30-2023 Nuclear Ab (S) [Titer] Positive Abnormal . [facility] Comment on above: Negative <1:80 Borde rline 1:80 Positive >1:80 Serum or plasma albumin/glob ulin mass ratioOrdered By: Oz Kincaid on 10-30-2023 Albumin/Globulin [Mass ratio] 1.2 {ratio} 0.7-1.7 [facility] Serum or plasma alpha 1 glob ulin measurement by electrophoresis (mass/volume)Ordered By: Oz Kincaid on 10-30-2023 Alpha 1 globulin Elph [Mass/Vol] 0.3 g/dL 0.0-0.4 [facility] Serum or plasma alpha 2 glob ulin measurement by electrophoresis (mass/volume)Ordered By: Oz Kincaid on 10-30-2023 Alpha 2 globulin Elph [Mass/Vol] 1.0 g/dL 0.4-1.0 [facility] Serum or plasma beta globuli n measurement by electrophoresis (mass/volume)Ordered By: Oz Kincaid on 10-30-2023 Beta globulin Elph [Mass/Vol] 1.1 g/dL 0.7-1.3 [facility] Serum or plasma ceruloplasmi n measurement (mass/volume)Ordered By: Oz Kincaid on 10-30-2023 Ceruloplasmin [Mass/Vol] 30.1 mg/dL 19.0-39.0 [facility] Comment on above: Performed at: [address] [id number] Director: Yuri Osullivan PhD, Phone: [phone] Serum or plasma gamma globul in measurement by electrophoresis (mass/volume)Ordered By: Oz Kincaid on 10-30-2023 Gamma globulin Elph [Mass/Vol] 1.1 g/dL 0.4-1.8 [facility] Serum or plasma homocysteine measurement (moles/volume)Ordered By: Oz Kincaid on 10-30-2023 Homocysteine [Moles/Vol] 20.7 umol/L High 0.0-17.2 [facility] Comment on above: Performed at: [address] [id number] Director: Yuri Osullivan PhD, Phone: [phone] Serum or plasma lutropin coleman surement (units/volume)Ordered By: Oz Kincaid on 10-30-2023 Lutropin Qn 60.4 m[IU]/mL High 7.7-58.5 [facility] Comment on above: Adult Female Range F ollicular phase 2.4 - 12.6 Ovulation phase 14.0 - 95.6 Luteal phase 1.0 - 11.4 Postmenopausal 7.7 - 58.5 Serum or plasma methylmalona te measurement (moles/volume)Ordered By: Oz Kincaid on 10-30-2023 Methylmalonate [Moles/Vol] 247 nmol/L 0-378 [facility] Comment on above: This test was develo ped and its performance characteristicsdetermined by [employer]. It has not been cleared orapproved by the Food and Drug Administration.Performed at: [address] [id number] Director: Christine Pham MD, Phone: [phone] This test was develo ped and its performance characteristicsdetermined by [employer]. It has not been cleared orapproved by the Food and Drug Administration.Performed at: [address] [id number] Director: Christine Pham MD, Phone: [phone] This test was developed and its performance characteristicsdetermined by [employer]. It has not been cleared orapproved by the Food and Drug Administration. --- 11/06/23 1236 ---Methylmal Acid previously reported as: 247 nmol/LThis test was developed and its performance characteristicsdetermined by [employer]. It has not been cleared orapproved by the Food and Drug Administration.Performed at: [facility] [id number] Director: Christine Pham MD, Phone: [phone] Serum or plasma pyridoxine m easurement (mass/volume)Ordered By: Oz Kincaid on 10-30-2023 Pyridoxine [Mass/Vol] 8.8 ug/L 3.4-65.2 [facility] Comment on above: This test was develo ped and its performance characteristicsdetermined by [employer]. It has not been cleared orapproved by the Food and Drug Administration. Deficiency: <3.4 Marginal: 3.4 - 5.1 Adequate: >5.1Performed at: [facility] [id number] Director: Christine Pham MD, Phone: [phone] Serum or plasma rheumatoid f actor measurement (units/volume)Ordered By: Oz Kincaid on 10-30-2023 Rheumatoid factor Qn [IU]/mL <14.0 [facility] Serum speckled pattern antin uclear antibody (BEATRICE) titerOrdered By: Oz Kincaid on 10-30-2023 Speckled nuclear Ab pattern (S) [Titer] 1:80 . [facility] Comment on above: ICAP nomenclature: A C-2,4,5,29 Thyrotropin [Units/volume] i n Serum or PlasmaOrdered By: Oz Kincaid on 10-30-2023 TSH Qn 6.38 m[IU]/L High 0.45-5.33 [facility] Thyroxine (T4) free [Mass/vo lume] in Serum or PlasmaOrdered By: Oz Kincaid on 10-30-2023 Free T4 [Mass/Vol] 0.89 ng/dL 0.61-1.12 [facility] Urine alpha 1 globulin/total protein by electrophoresisOrdered By: Oz Kincaid on 10-30-2023 Alpha 1 globulin Elph (U) [Mass fraction] 0.4 % . [facility] Urine alpha 2 globulin/total protein ratio by electrophoresisOrdered By: Oz Kincaid on 10-30-2023 Alpha 2 globulin Elph (U) [Mass fraction] 8.9 % . [facility] Urine beta globulin measurem ent by electrophoresis (mass/volume)Ordered By: Oz Kincaid on 10-30-2023 Beta globulin Elph (U) [Mass/Vol] 31.7 % . [facility] Vitamin B12 ser/plasOrdered By: Oz Kincaid on 10-30-2023 Cobalamin (Vitamin B12) [Mass/Vol] 300 pg/mL 180-914 [facility] Glucose Glucometer (BldC) [M ass/Vol]Ordered By: Elva Florian on 09-14-2023 Glucose [Mass/Vol] 134 mg/dL [facility] Comment on above: Random Glucose Refer ence Range is dependent on time and content of last meal. Glucose of more than 200 mg/dL in a nonstressed, ambulatory subject supports the diagnosis of Diabetes Mellitus. No Panel InformationOrdered By: Elva Florian on 09-14-2023 Bedside Glucose Comment Glu2: cleaned meter [facility] Cholesterol [Mass/volume] in Serum or PlasmaOrdered By: Elva Florian on 09-13-2023 Cholesterol [Mass/Vol] 125 mg/dL Low 140-200 [facility] Comment on above: Chol less than 200 m g/dl low riskChol 201-239 mg/dl borderline riskChol 240 mg/dl and greater high risk Cholesterol in LDL Calc [Mas s/Vol]Ordered By: Elva Florian on 09-13-2023 Cholesterol in LDL [Mass/Vol] 59 mg/dL 0-100 [facility] Comment on above: LDL ATP III CLASSIFI CATIONLDL less than 100 mg/dL OptimalLDL 100-129 mg/dL Near or above optimalLDL 130-159 mg/dL Borderline highLDL 160-189 mg/dL HighLDL greater than 189 mg/dL Very high Cholesterol in VLDL Calc [Ma ss/Vol]Ordered By: Elva Florian on 09-13-2023 Cholesterol in VLDL [Mass/Vol] 39 mg/dL [facility] Magnesium [Mass/volume] in S elliot or PlasmaOrdered By: Elva Florian on 09-13-2023 Magnesium [Mass/Vol] 1.6 mg/dL Low 1.9-2.7 [facility] Serum or plasma high density lipoprotein (HDL) cholesterol measurementOrdered By: Elva Florian on 09-13-2023 Cholesterol in HDL [Mass/Vol] 26 mg/dL 23-92 [facility] Comment on above: HDL CHOL ATP-III CLA SSIFICATION Cardiovascular RiskHDL > or equal to 60 mg/dL LOWHDL < 40 mg/dL HIGH Serum or plasma total choles terol/high density lipoprotein (HDL) cholesterol mass ratOrdered By: Elva Florian on 09-13-2023 Cholesterol.total/Monica sterol in HDL [Mass ratio] 4.8 {ratio} <5.0 [facility] Thyrotropin [Units/volume] i n Serum or PlasmaOrdered By: Elva Florian on 09-13-2023 TSH Qn 2.48 m[IU]/L 0.45-5.33 [facility] Triglyceride [Mass/volume] i n Serum or PlasmaOrdered By: Elva Florian on 09-13-2023 Triglyceride [Mass/Vol] 198 mg/dL High 0-[address] [facility] Comment on above: TRIG ATP [...] aPTT Coag (PPP) [Time] 29.3 s 25.1-36.5 [facility] Comment on above: A hematocrit value g reater than 55% may lead to inaccurate results in coagulation testing. Patients having hematocrit values >55% require a special collection tube for coagulation studies. Please contact the laboratory at [phone] for redraw instructions. Basophils Auto (Bld) [#/Vol] Ordered By: Edgar Valenzuela on 09-12-2023 Basophils (Bld) [#/Vol] 0.1 10*3/uL 0.0-0.2 [facility] Basophils/100 WBC Auto (Bld) Ordered By: Edgar Valenzuela on 09-12-2023 Basophils/100 WBC (Bld) 0.9 % . [facility] Calcium [Mass/volume] in Ser um or PlasmaOrdered By: Edgar Valenzuela on 09-12-2023 Calcium [Mass/Vol] 10.5 mg/dL High 8.6-10.3 [facility] Carbon dioxide, total [Moles /volume] in Serum or PlasmaOrdered By: Edgar Valenzuela on 09-12-2023 CO2 [Moles/Vol] 25.0 mmol/L 21.0-31.[address] [facility] Chloride [Moles/volume] in S elliot or PlasmaOrdered By: Edgar Valenzuela on 09-12-2023 Chloride [Moles/Vol] 102 mmol/L 98-107 [facility] Creatine kinase [Enzymatic a ctivity/volume] in Serum or PlasmaOrdered By: Edgar Valenzuela on 09-12-2023 CK [Catalytic activity/Vol] 45 U/L 30-223 [facility] Creatinine [Mass/volume] in Serum or PlasmaOrdered By: Edgar Valenzuela on 09-12-2023 Creatinine [Mass/Vol] 0.84 mg/dL 0.60-1.20 [facility] Eosinophils Auto (Bld) [#/Vo l]Ordered By: Edgar Valenzuela on 09-12-2023 Eosinophils (Bld) [#/Vol] 0.2 10*3/uL 0.0-0.45 [facility] Eosinophils/100 WBC Auto (Bl d)Ordered By: Edgar Valenzuela on 09-12-2023 Eosinophils/100 WBC (Bld) 1.7 % . [facility] Erythrocyte distribution wid th Auto (RBC) [Ratio]Ordered By: Edgar Valenzuela on 09-12-2023 Erythrocyte distribution width (RBC) [Ratio] 12.7 % 11.9-15.3 [facility] Glucose [Mass/volume] in Ser um or PlasmaOrdered By: Edgar Valenzuela on 09-12-2023 Glucose [Mass/Vol] 150 mg/dL High 70-100 [facility] Comment on above: ADA recommended refe rence rangeRandom Glucose Reference Range is dependent on time and content of last meal. Glucose of more than 200 mg/dL in a nonstressed, ambulatory subject supports the diagnosis of Diabetes Mellitus. HbA1c HPLC (Bld) [Mass fract ion]on 09-12-2023 HbA1c (Bld) [Mass fraction] 6.6 % [facility] Hematocrit Auto (Bld) [Volum e fraction]Ordered By: Edgar Valenzuela on 09-12-2023 Hematocrit (Bld) [Volume fraction] 49.3 % High 34.0-46.4 [facility] Hemoglobin [Mass/volume] in BloodOrdered By: Edgar Valenzuela on 09-12-2023 Hemoglobin (Bld) [Mass/Vol] 16.9 g/dL High 11.8-15.4 [facility] INR in Platelet poor plasma by Coagulation assayOrdered By: Edgar Valenzuela on 09-12-2023 INR Coag (PPP) [Relative time] 1.1 {INR} [facility] Comment on above: INR Therapeutic [...] with mechanical heart valves: 3 - 4.5 Leukocytes [#/volume] correc deepika for nucleated erythrocytes in Blood by Automated counOrdered By: Edgar Valenzuela on 09-12-2023 WBC corrected for nucl RBC Auto (Bld) [#/Vol] 9.8 10*3/uL 3.8-11.6 [facility] Lymphocytes Auto (Bld) [#/Vo l]Ordered By: Edgar Valenzuela on 09-12-2023 Lymphocytes (Bld) [#/Vol] 2.0 10*3/uL 1.00-4.8 [facility] Lymphocytes/100 WBC Auto (Bl d)Ordered By: Edgar Valenzuela on 09-12-2023 Lymphocytes/100 WBC (Bld) 20.2 % . [facility] MCH Auto (RBC) [Entitic mass ]Ordered By: Edgar Valenzuela on 09-12-2023 MCH (RBC) [Entitic mass] 32.7 pg 24.7-34.3 [facility] MCHC Auto (RBC) [Mass/Vol]Or dered By: Edgar Valenzuela on 09-12-2023 MCHC (RBC) [Mass/Vol] 34.2 g/dL 32.0-35.0 [facility] MCV Auto (RBC) [Entitic vol] Ordered By: Edgar Valenzuela on 09-12-2023 MCV (RBC) [Entitic vol] 95.6 fL 80-[address] [facility] Monocyte distribution width [Entitic volume] in Blood by AutomatedOrdered By: Edgar Valenzuela on 09-12-2023 Monocyte distribution width Auto (Bld) [Entitic vol] 19.90 % 0.00-20.00 [facility] Monocytes Auto (Bld) [#/Vol] Ordered By: Edgar Valenzuela on 09-12-2023 Monocytes (Bld) [#/Vol] 0.6 10*3/uL 0.0-0.8 [facility] Monocytes/100 WBC Auto (Bld) Ordered By: Edgar Valenzuela on 09-12-2023 Monocytes/100 WBC (Bld) 5.9 % . [facility] Natriuretic peptide B [Mass/ Vol]Ordered By: Edgar Valenzuela on 09-12-2023 Natriuretic peptide B (Bld) [Mass/Vol] 112.0 pg/mL High 5-100 [facility] Neutrophils Auto (Bld) [#/Vo l]Ordered By: Edgar Valenzuela on 09-12-2023 Neutrophils (Bld) [#/Vol] 7.0 10*3/uL 1.8-7.7 [facility] Neutrophils/100 WBC Auto (Bl d)Ordered By: Edgar Valenzuela on 09-12-2023 Neutrophils/100 WBC (Bld) 71.3 % . [facility] No Panel InformationOrdered By: Edgar Valenzuela on 09-12-2023 Estimated GFR (CKD-EPI) > 60.0 mL/Min [facility] Creatinine Clearance (Chem 73.11 [facility] No Panel Informationon 09-11 Bedside Glucose 151 [facility] Nucleated erythrocytes [Pres ence] in Blood by Automated countOrdered By: Edgar Valenzuela on 09-12-2023 Nucleated RBC Auto Ql (Bld) 0.2 /100{WBC} 0-0.5 [facility] Platelet mean volume Auto (B ld) [Entitic vol]Ordered By: Edgar Valenzuela on 09-12-2023 Platelet mean volume (Bld) [Entitic vol] 9.5 fL 6.3-10.7 [facility] Platelets Auto (Bld) [#/Vol] Ordered By: Edgar Valenzuela on 09-12-2023 Platelets (Bld) [#/Vol] 195 10*3/uL 150-450 [facility] Potassium [Moles/volume] in Serum or PlasmaOrdered By: Edgar Valenzuela on 09-12-2023 Potassium [Moles/Vol] 4.0 mmol/L 3.5-5.1 [facility] Prothrombin time (PT)Ordered By: Edgar Valenzuela on 09-12-2023 PT Coag (PPP) [Time] 12.7 s 9.0-12.9 [facility] Comment on above: A hematocrit value g reater than 55% may lead to inaccurate results in coagulation testing. Patients having hematocrit values >55% require a special collection tube for coagulation studies. Please contact the laboratory at [phone] for redraw instructions. RBC Auto (Bld) [#/Vol]Ordere d By: Edgar Valenzuela on 09-12-2023 RBC (Bld) [#/Vol] 5.16 10*6/uL High 3.60-5.[address] [facility] Serum or plasma anion gap de terminationOrdered By: Edgar Valenzuela on 09-12-2023 Anion gap [Moles/Vol] 15.0 mmol/L 6.0-15.0 [facility] Sodium [Moles/volume] in Ser um or PlasmaOrdered By: Edgar Valenzuela on 09-12-2023 Sodium [Moles/Vol] 138 mmol/L 136-145 [facility] Troponin I.cardiac [Mass/vol ume] in Serum or Plasma by Detection limit <= 0.01 ng/Ordered By: Edgar Valenzuela on 09-12-2023 Troponin I.cardiac DL <= 0.01 ng/mL [Mass/Vol] 7.3 pg/mL 0.0-15.0 [facility] Urea nitrogen [Mass/volume] in Serum or PlasmaOrdered By: Edgar Valenzuela on 09-12-2023 Urea nitrogen [Mass/Vol] 11 mg/dL 7-25 [facility] WBC Auto (Bld) [#/Vol]Ordere d By: Edgar Valenzuela on 09-12-2023 WBC (Bld) [#/Vol] 9.8 10*3/uL 3.8-11.6 [facility] Alanine aminotransferase [En zymatic activity/volume] in Serum or PlasmaOrdered By: Angelique Russell on 09-05-2023 ALT [Catalytic activity/Vol] 19 U/L 7-52 [facility] Albumin [Mass/volume] in Ser um or Plasma by Bromocresol green (BCG) dye binding methoOrdered By: Angelique Russell on 09-05-2023 Albumin BCG dye [Mass/Vol] 4.3 g/dL 3.5-5.7 [facility] Alkaline phosphatase [Enzyma tic activity/volume] in Serum or PlasmaOrdered By: Angelique Russell on 09-05-2023 ALP [Catalytic activity/Vol] 81 U/L 34-104 [facility] Aspartate aminotransferase [ Enzymatic activity/volume] in Serum or PlasmaOrdered By: Barbera Yvonne on 09-05-2023 AST [Catalytic activity/Vol] 26 U/L 13-39 [facility] Bilirubin.total [Mass/volume ] in Serum or PlasmaOrdered By: Angelique Russell on 09-05-2023 Bilirubin [Mass/Vol] 0.7 mg/dL 0.3-1.0 [facility] Calcium [Mass/volume] in Ser um or PlasmaOrdered By: Angelique Russell on 09-05-2023 Calcium [Mass/Vol] 10.2 mg/dL 8.6-10.3 [facility] Carbon dioxide, total [Moles /volume] in Serum or PlasmaOrdered By: Angelique Russell on 09-05-2023 CO2 [Moles/Vol] 28.6 mmol/L 21.0-31.[address] [facility] Chloride [Moles/volume] in S elliot or PlasmaOrdered By: Angelique Russell on 09-05-2023 Chloride [Moles/Vol] 102 mmol/L 98-107 [facility] Cholesterol [Mass/volume] in Serum or PlasmaOrdered By: Angelique Russell on 09-05-2023 Cholesterol [Mass/Vol] 143 mg/dL 140-200 [facility] Comment on above: Chol less than 200 m g/dl low riskChol 201-239 mg/dl borderline riskChol 240 mg/dl and greater high risk Cholesterol in LDL Calc [Mas s/Vol]Ordered By: Angelique Russell on 09-05-2023 Cholesterol in LDL [Mass/Vol] 62 mg/dL 0-100 [facility] Comment on above: LDL ATP III CLASSIFI CATIONLDL less than 100 mg/dL OptimalLDL 100-129 mg/dL Near or above optimalLDL 130-159 mg/dL Borderline highLDL 160-189 mg/dL HighLDL greater than 189 mg/dL Very high Cholesterol in VLDL Calc [Ma ss/Vol]Ordered By: Angelique Russell on 09-05-2023 Cholesterol in VLDL [Mass/Vol] 51 mg/dL [facility] Creatinine [Mass/volume] in Serum or PlasmaOrdered By: Angelique Russell on 09-05-2023 Creatinine [Mass/Vol] 0.91 mg/dL 0.60-1.20 [facility] Creatinine [Mass/volume] in UrineOrdered By: Angelique Russell on 09-05-2023 Creatinine (U) [Mass/Vol] 118.0 mg/dL [facility] Comment on above: No reference range e stablished Globulin Calc (S) [Mass/Vol] Ordered By: Angelique Russell on 09-05-2023 Globulin (S) [Mass/Vol] 2.7 g/dL [facility] Glucose [Mass/volume] in Ser um or PlasmaOrdered By: Angelique Russell on 09-05-2023 Glucose [Mass/Vol] 197 mg/dL High 70-100 [facility] Comment on above: ADA recommended refe rence rangeRandom Glucose Reference Range is dependent on time and content of last meal. Glucose of more than 200 mg/dL in a nonstressed, ambulatory subject supports the diagnosis of Diabetes Mellitus. Microalbumin [Mass/volume] i n UrineOrdered By: Angelique Russell on 09-05-2023 Albumin DL <= 20 mg/L (U) [Mass/Vol] 18.4 mg/dL High 0.0-1.8 [facility] No Panel InformationOrdered By: Angelique Russell on 09-05-2023 Estimated GFR (CKD-EPI) > 60.0 mL/Min [facility] Creatinine Clearance (Chem N/A [facility] Potassium [Moles/volume] in Serum or PlasmaOrdered By: Angelique Russell on 09-05-2023 Potassium [Moles/Vol] 4.2 mmol/L 3.5-5.1 [facility] Protein [Mass/volume] in Ser um or PlasmaOrdered By: Angelique Russell on 09-05-2023 Protein [Mass/Vol] 7.0 g/dL 6.4-8.9 [facility] Serum or plasma albumin/glob ulin mass ratioOrdered By: Angelique Russell on 09-05-2023 Albumin/Globulin [Mass ratio] 1.6 {ratio} [facility] Serum or plasma anion gap de terminationOrdered By: Angelique Russell on 09-05-2023 Anion gap [Moles/Vol] 13.6 mmol/L 6.0-15.0 [facility] Serum or plasma high density lipoprotein (HDL) cholesterol measurementOrdered By: Angelique Russell on 09-05-2023 Cholesterol in HDL [Mass/Vol] 30 mg/dL 23-92 [facility] Comment on above: HDL CHOL ATP-III CLA SSIFICATION Cardiovascular RiskHDL > or equal to 60 mg/dL LOWHDL < 40 mg/dL HIGH Serum or plasma total choles terol/high density lipoprotein (HDL) cholesterol mass ratOrdered By: Angelique Russell on 09-05-2023 Cholesterol.total/Monica sterol in HDL [Mass ratio] 4.8 {ratio} <5.0 [facility] Sodium [Moles/volume] in Ser um or PlasmaOrdered By: Angelique Russell on 09-05-2023 Sodium [Moles/Vol] 140 mmol/L 136-145 [facility] Triglyceride [Mass/volume] i n Serum or PlasmaOrdered By: Angelique Russell on 09-05-2023 Triglyceride [Mass/Vol] 256 mg/dL High 0-[address] [facility] Comment on above: TRIG ATP III CLASSIF ICATIONTRIG less than 150 mg/dL NormalTRIG 150-199 mg/dL Borderline highTRIG 200-500 mg/dL High TRIG greater than 500 mg/dL Very highStandard traceable to the Center for Disease Conrtrol and Prevention (CDC) test method. Urea nitrogen [Mass/volume] in Serum or PlasmaOrdered By: Angelique Russell on 09-05-2023 Urea nitrogen [Mass/Vol] 12 mg/dL 7- [facility] Urine microalbumin/creatinin e mass ratioOrdered By: Angelique Russell on 09-05-2023 Albumin/Creatinine DL <= 20 mg/L (U) [Mass ratio] 155.0 mg/g High 0.0-30.0 [facility] Comment on above: 30-300 mg/g indicate s an increased risk for diabetic nephropathy. Greater than 300 mg/g is consistent with clinical nephropathy. (Am. J. Kidney Disease 1995, 25:107) Vitamin B12 ser/plasOrdered By: Angelique Russell on 09-05-2023 Cobalamin (Vitamin B12) [Mass/Vol] 255 pg/mL 180-914 [facility] Laboratory - Hematology and Cell countson 06-12-2023 HbA1c (Bld) [Mass fraction] 7.2 % [facility] No Panel Informationon 06-12 Bedside Glucose 197 [facility] A1C HEMOGLOBINon 01-07-2023 HbA1c (Bld) [Mass fraction] 6.3 % [employer] Other Glucose - [facility] Glucose [Mass/Vol] 196 mg/dL [employer] Other HbA1c (Bld) [Mass fraction]o n 01-07-2023 A1C HEMOGLOBIN [place] [employer] Other A1C HEMOGLOBINon 09-27-2022 HbA1c (Bld) [Mass fraction] 6.6 % [employer] Other Glucose - [facility] Glucose [Mass/Vol] 128 mg/dL [employer] Other HbA1c (Bld) [Mass fraction]o n 09-27-2022 A1C HEMOGLOBIN [employer] Other A1C HEMOGLOBINon 06-18-2022 HbA1c (Bld) [Mass fraction] 7.1 % [employer] Other Glucose - [facility] Glucose [Mass/Vol] 219 mg/dL [employer] Other HbA1c (Bld) [Mass fraction]o n 06-18-2022 A1C HEMOGLOBIN [employer] Other A1C HEMOGLOBINon 01-09-2022 HbA1c (Bld) [Mass fraction] 7.7 % [employer] Other Glucose - [facility] Glucose [Mass/Vol] 242 mg/dL [employer] Other HbA1c (Bld) [Mass fraction]o n 01-09-2022 A1C HEMOGLOBIN [employer] Other Consultation Noteon 12-26-19 Consultation Note [id number]: 127 Normal [facility] Insurance Correspondence Off ice12-20-2021 Insurance Correspondence Office [id number]: 127 Normal [facility] Urine culture routineOrdered By: Milo Watters on 12-19-2021 Bacteria identified Cx Nom (U) Zeny albicans [facility] Albumin [Mass/volume] in Ser um or PlasmaOrdered By: Milo Watters on 12-17-2021 Albumin [Mass/Vol] 3.4 g/dL 3.2-5.5 [facility] Automated erythrocytes count in urine sediment (number/area)Ordered By: Milo Watters on 12-17-2021 RBC Auto (Urine sed) [#/Area] 3-4 [HPF] 0-4 [facility] Automated leukocytes count i n urine sediment (number/area)Ordered By: Milo Watters on 12-17-2021 WBC Auto (Urine sed) [#/Area] 50-100 [HPF] 0-4 [facility] Automated urine hyaline cast s count (number/volume)Ordered By: Milo Watters on 12-17-2021 Hyaline casts Auto (U) [#/Vol] None seen [LPF] 0-1 [facility] Basophils Auto (Bld) [#/Vol] Ordered By: Milo Watters on 12-17-2021 Basophils (Bld) [#/Vol] 0.1 10*3/uL 0.0-0.2 [facility] Basophils/100 WBC Auto (Bld) Ordered By: Milo Watters on 12-17-2021 Basophils/100 WBC (Bld) 0.5 % . [facility] Bilirubin Test strip Ql (U)O rdered By: Milo Watters on 12-17-2021 Bilirubin Ql (U) Negative Negative [facility] Blood hemoglobin measurement (mass/volume)Ordered By: Milo Watters on 12-17-2021 Hemoglobin (Bld) [Mass/Vol] 16.1 g/dL 11.8-15.4 [facility] Blood leukocytes automated c ount (number/volume)Ordered By: Milo Watters on 12-17-2021 WBC (Bld) [#/Vol] 10.7 10*3/uL 4.5-11.[address] [facility] Casts typing in urine sedime nt by light microscopyOrdered By: Milo Watters on 12-17-2021 Casts LM Nom (Urine sed) None seen [LPF] None Seen [facility] Color Auto (U)Ordered By: Jonh Watters on 12-17-2021 Color (U) Yellow Yellow [facility] Creatinine and Glomerular fi ltration rate.predicted panel (S/P/Bld)Ordered By: Milo Watters on 12-17-2021 Creatinine [Mass/Vol] 0.89 mg/dL 0.44-1.03 [facility] Eosinophils Auto (Bld) [#/Vo l]Ordered By: Milo Watters on 12-17-2021 Eosinophils (Bld) [#/Vol] 0.1 10*3/uL 0.0-0.45 [facility] Eosinophils/100 WBC Auto (Bl d)Ordered By: Milo Watters on 12-17-2021 Eosinophils/100 WBC (Bld) 1.0 % . [facility] Erythrocyte distribution wid th Auto (RBC) [Ratio]Ordered By: Milo Watters on 12-17-2021 Erythrocyte distribution width (RBC) [Ratio] 13.1 % 11.9-15.3 [facility] Estimated glomerular filtrat ion rate (GFR) non- AmericanOrdered By: Milo Watters on 12-17-2021 GFR/1.73 sq M.predicted among non-blacks MDRD (S/P/Bld) [Vol rate/Area] > 60 mL/Min [facility] Globulin Calc (S) [Mass/Vol] Ordered By: Milo Watters on 12-17-2021 Globulin (S) [Mass/Vol] 3.9 g/dL F [facility] Hematocrit Auto (Bld) [Volum e fraction]Ordered By: Milo Watters on 12-17-2021 Hematocrit (Bld) [Volume fraction] 48.5 % 34.0-46.4 [facility] Ketones Auto test strip (U) [Mass/Vol]Ordered By: Milo Watters on 12-17-2021 Ketones (U) [Mass/Vol] Negative Negative Fi [facility] - Hematology and Cell countsOrdered By: Milo Watters on 12-17-2021 Nucleated RBC/100 WBC (Bld) [Ratio] 0.1 % 0-0.5 [facility] Lymphocytes Auto (Bld) [#/Vo l]Ordered By: Milo Watters on 12-17-2021 Lymphocytes (Bld) [#/Vol] 1.5 10*3/uL 1.00-4.8 [facility] Lymphocytes/100 WBC Auto (Bl d)Ordered By: Milo Watters on 12-17-2021 Lymphocytes/100 WBC (Bld) 14.2 % . [facility] MCH Auto (RBC) [Entitic mass ]Ordered By: Milo Watters on 12-17-2021 MCH (RBC) [Entitic mass] 31.4 pg 24.7-34.3 [facility] MCHC Auto (RBC) [Mass/Vol]Or dered By: Milo Watters on 12-17-2021 MCHC (RBC) [Mass/Vol] 33.2 g/dL 32.0-35.0 [facility] MCV Auto (RBC) [Entitic vol] Ordered By: Milo Watters on 12-17-2021 MCV (RBC) [Entitic vol] 94.6 fL 80-[address] [facility] Monocytes Auto (Bld) [#/Vol] Ordered By: Milo Watters on 12-17-2021 Monocytes (Bld) [#/Vol] 0.8 10*3/uL 0.0-0.8 [facility] Monocytes/100 WBC Auto (Bld) Ordered By: Milo Watters on 12-17-2021 Monocytes/100 WBC (Bld) 7.5 % . F [facility] Neutrophils Auto (Bld) [#/Vo l]Ordered By: Milo Watters on 12-17-2021 Neutrophils (Bld) [#/Vol] 8.2 10*3/uL 1.8-7.7 [facility] Neutrophils/100 WBC Auto (Bl d)Ordered By: Milo Watters on 12-17-2021 Neutrophils/100 WBC (Bld) 76.8 % . [facility] Nitrite Test strip Ql (U)Ord ered By: Milo Watters on 12-17-2021 Nitrite Ql (U) Negative Negative [facility] No Panel InformationOrdered By: Milo Watters on 12-17-2021 Estimated GFR () > 60 mL/Min [facility] Comment on above: GFR estimated refere nce range: According to KDOQI guidelines, <60 ml/min/1.73m2 is sufficient to diagnose a patient with chronic kidney disease. Pharmacy Creatinine Clearance (Chem 70.55 [facility] Platelet mean volume Auto (B ld) [Entitic vol]Ordered By: Milo Watters on 12-17-2021 Platelet mean volume (Bld) [Entitic vol] 8.7 fL 6.3-10.7 [facility] Platelets Auto (Bld) [#/Vol] Ordered By: Milo Watters on 12-17-2021 Platelets (Bld) [#/Vol] 239 10*3/uL 150-450 [facility] Protein Auto test strip (U) [Mass/Vol]Ordered By: Milo Watters on 12-17-2021 Protein (U) [Mass/Vol] Trace mg/dL Negative F [facility] Protein [Mass/volume] in Ser um or PlasmaOrdered By: Milo Watters on 12-17-2021 Protein [Mass/Vol] 7.3 g/dL 6.1-7.9 [facility] RBC Auto (Bld) [#/Vol]Ordere d By: Milo Watters on 12-17-2021 RBC (Bld) [#/Vol] 5.13 10*6/uL 3.60-5.[address] [facility] Serum or plasma alanine tucker otransferase measurement without P-5'-P (enzymatic activiOrdered By: Milo Watters on 12-17-2021 ALT No additional P-5'-P [Catalytic activity/Vol] 38 U/L 10-60 [facility] Serum or plasma albumin/glob ulin mass ratioOrdered By: Milo Watters on 12-17-2021 Albumin/Globulin [Mass ratio] 0.9 {ratio} [facility] Serum or plasma alkaline yue sphatase measurement (enzymatic activity/volume)Ordered By: Milo Watters on 12-17-2021 ALP [Catalytic activity/Vol] 109 U/L 32-92 [facility] Serum or plasma aspartate am inotransferase measurement (enzymatic activity/volume)Ordered By: Milo Watters on 12-17-2021 AST [Catalytic activity/Vol] 43 U/L 10-42 [facility] Serum or plasma calcium steve urement (mass/volume)Ordered By: Milo Watters on 12-17-2021 Calcium [Mass/Vol] 10.0 mg/dL 8.2-10.2 [facility] Serum or plasma chloride coleman surement (moles/volume)Ordered By: Milo Watters on 12-17-2021 Chloride [Moles/Vol] 102 mmol/L 95-114 [facility] Serum or plasma glucose steve urement (mass/volume)Ordered By: Milo Watters on 12-17-2021 Glucose [Mass/Vol] 231 mg/dL 70-100 [facility] Comment on above: ADA recommended refe rence range Random Glucose Reference Range is dependent on time and content of last meal. Glucose of more than 200 mg/dL in a nonstressed, ambulatory subject supports the diagnosis of Diabetes Mellitus. Serum or plasma potassium me asurement (moles/volume)Ordered By: OSORIO WHITE on 12-17-2021 Potassium [Moles/Vol] 3.6 mmol/L 3.5-5.1 [facility] Serum or plasma sodium measu rement (moles/volume)Ordered By: Milo Watters on 12-17-2021 Sodium [Moles/Vol] 137 mmol/L 136-146 [facility] Serum or plasma total biliru bin measurement (mass/volume)Ordered By: Milo Watters on 12-17-2021 Bilirubin [Mass/Vol] 0.8 mg/dL 0.3-1.2 [facility] Serum or plasma total carbon dioxide measurement (moles/volume)Ordered By: Milo Watters on 12-17-2021 CO2 [Moles/Vol] 24.6 mmol/L 22.0-30.[address] [facility] Serum or plasma urea nitroge n measurement (mass/volume)Ordered By: Milo Watters on 12-17-2021 Urea nitrogen [Mass/Vol] 8 mg/dL 9- [facility] Specific gravity Auto test s trip (U) [Rel density]Ordered By: Milo Watters on 12-17-2021 Specific gravity (U) [Rel density] 1.030 1.001-1.03 0 [facility] Squamous epithelial cells de tection in urine sediment by light microscopyOrdered By: Milo Watters on 12-17-2021 Epithelial cells.squamous LM Ql (Urine sed) None seen [HPF] 0-2 [facility] Urine bacteria detection by automated methodOrdered By: Milo Watters on 12-17-2021 Bacteria Auto Ql (U) Rare None Seen [facility] Urine clarity by refractomet ry automatedOrdered By: Milo Watters on 12-17-2021 Clarity Refractometry automated (U) Clear Clear [facility] Urine glucose measurement by automated test strip (mass/volume)Ordered By: Milo Watters on 12-17-2021 Glucose Auto test strip (U) [Mass/Vol] >=1000 mg/dL Normal [facility] Urine hemoglobin detection b y automated test stripOrdered By: Milo Watters on 12-17-2021 Hemoglobin Auto test strip Ql (U) 1+ Negative [facility] Urine leukocyte esterase det ection by automated test stripOrdered By: Milo Watters on 12-17-2021 Leukocyte esterase Auto test strip Ql (U) 3+ Negative [facility] Urobilinogen Auto test strip (U) [Mass/Vol]Ordered By: Milo Watters on 12-17-2021 Urobilinogen (U) [Mass/Vol] Normal mg/dL Normal [facility] Yeast detection in urine sed iment by light microscopyOrdered By: Milo Watters on 12-17-2021 Yeast LM Ql (Urine sed) 3+ [HPF] None Seen F [facility] pH Auto test strip (U)Ordere d By: Milo Watters on 12-17-2021 pH (U) 6.0 [pH] 5.0-9.0 [facility] Bacterial blood cultureOrder ed By: Arleen Stephen on 12-14-2021 Bacteria identified Cx Nom (Bld) NO GROWTH 5 DAYS [facility] Basophils Auto (Bld) [#/Vol] Ordered By: Walter Montgomery on 12-13-2021 Basophils (Bld) [#/Vol] 0.0 10*3/uL 0.0-0.2 [facility] Basophils/100 WBC Auto (Bld) Ordered By: Walter Montgomery on 12-13-2021 Basophils/100 WBC (Bld) 0.1 % . [facility] Blood hemoglobin measurement (mass/volume)Ordered By: Walter Montgomery on 12-13-2021 Hemoglobin (Bld) [Mass/Vol] 14.2 g/dL 11.8-15.4 [facility] Blood leukocytes automated c ount (number/volume)Ordered By: Walter Montgomery on 12-13-2021 WBC (Bld) [#/Vol] 9.4 10*3/uL 4.5-11.0 [facility] Consultation Noteon 12-14-19 Consultation Note [id number]#[id number]: 127 Normal [facility] Creatinine and Glomerular fi ltration rate.predicted panel (S/P/Bld)Ordered By: Walter Montgomery on 12-13-2021 Creatinine [Mass/Vol] 0.75 mg/dL 0.44-1.03 [facility] Direct bilirubin measurement Ordered By: Walter Montgomery on 12-13-2021 Bilirubin.direct [Mass/Vol] 0.2 mg/dL 0.0-0.4 [facility] Eosinophils Auto (Bld) [#/Vo l]Ordered By: Walter Montgomery on 12-13-2021 Eosinophils (Bld) [#/Vol] 0.0 10*3/uL 0.0-0.45 [facility] Eosinophils/100 WBC Auto (Bl d)Ordered By: Walter Montgomery on 12-13-2021 Eosinophils/100 WBC (Bld) 0.0 % . [facility] Erythrocyte distribution wid th Auto (RBC) [Ratio]Ordered By: Walter Montgomery on 12-13-2021 Erythrocyte distribution width (RBC) [Ratio] 12.9 % 11.9-15.3 [facility] Estimated glomerular filtrat ion rate (GFR) non- AmericanOrdered By: Walter Montgomery on 12-13-2021 GFR/1.73 sq M.predicted among non-blacks MDRD (S/P/Bld) [Vol rate/Area] > 60 mL/Min [facility] Glucose Glucometer (BldC) [M ass/Vol]Ordered By: Wilmer Vance on 12-13-2021 Glucose [Mass/Vol] 230 mg/dL [facility] Comment on above: Random Glucose Refer ence Range is dependent on time and content of last meal. Glucose of more than 200 mg/dL in a nonstressed, ambulatory subject supports the diagnosis of Diabetes Mellitus. Hematocrit Auto (Bld) [Volum e fraction]Ordered By: Walter Montgomery on 12-13-2021 Hematocrit (Bld) [Volume fraction] 41.9 % 34.0-46.4 [facility] - Hematology and Cell countsOrdered By: Walter Montgomery on 12-13-2021 Nucleated RBC/100 WBC (Bld) [Ratio] 0.0 % 0-0.5 [facility] Lymphocytes Auto (Bld) [#/Vo l]Ordered By: Walter Montgomery on 12-13-2021 Lymphocytes (Bld) [#/Vol] 0.7 10*3/uL 1.00-4.8 [facility] Lymphocytes/100 WBC Auto (Bl d)Ordered By: Walter Montgomery on 12-13-2021 Lymphocytes/100 WBC (Bld) 7.7 % . [facility] MCH Auto (RBC) [Entitic mass ]Ordered By: Walter Montgomery on 12-13-2021 MCH (RBC) [Entitic mass] 32.2 pg 24.7-34.3 [facility] MCHC Auto (RBC) [Mass/Vol]Or dered By: Walter Montgomery on 12-13-2021 MCHC (RBC) [Mass/Vol] 33.9 g/dL 32.0-35.0 [facility] MCV Auto (RBC) [Entitic vol] Ordered By: Walter Montgomery on 12-13-2021 MCV (RBC) [Entitic vol] 95.1 fL 80-[address] [facility] Monocytes Auto (Bld) [#/Vol] Ordered By: Walter Montgomery on 12-13-2021 Monocytes (Bld) [#/Vol] 0.2 10*3/uL 0.0-0.8 [facility] Monocytes/100 WBC Auto (Bld) Ordered By: Walter Montgomery on 12-13-2021 Monocytes/100 WBC (Bld) 1.8 % . [facility] Neutrophils Auto (Bld) [#/Vo l]Ordered By: Walter Montgomery on 12-13-2021 Neutrophils (Bld) [#/Vol] 8.5 10*3/uL 1.8-7.7 [facility] Neutrophils/100 WBC Auto (Bl d)Ordered By: Walter Montgomery on 12-13-2021 Neutrophils/100 WBC (Bld) 90.4 % . [facility] No Panel InformationOrdered By: Walter Montgomery on 12-13-2021 Estimated GFR () > 60 mL/Min [facility] Comment on above: GFR estimated refere nce range: According to KDOQI guidelines, <60 ml/min/1.73m2 is sufficient to diagnose a patient with chronic kidney disease. Pharmacy Creatinine Clearance (Chem 84.79 [facility] Platelet mean volume Auto (B ld) [Entitic vol]Ordered By: Walter Montgomery on 12-13-2021 Platelet mean volume (Bld) [Entitic vol] 9.3 fL 6.3-10.7 [facility] Platelets Auto (Bld) [#/Vol] Ordered By: Walter Montgomery on 12-13-2021 Platelets (Bld) [#/Vol] 178 10*3/uL 150-450 [facility] RBC Auto (Bld) [#/Vol]Ordere d By: Walter Montgomery on 12-13-2021 RBC (Bld) [#/Vol] 4.41 10*6/uL 3.60-5.[address] [facility] Serum or plasma chloride coleman surement (moles/volume)Ordered By: Walter Montgomery on 12-13-2021 Chloride [Moles/Vol] 105 mmol/L 95-114 [facility] Serum or plasma non-glucuron idated bilirubin measurement (mass/volume)Ordered By: Walter Montgomery on 12-13-2021 Bilirubin.indirect [Mass/Vol] 0.5 mg/dL [facility] Serum or plasma potassium me asurement (moles/volume)Ordered By: Walter Montgomery on 12-13-2021 Potassium [Moles/Vol] 4.4 mmol/L 3.5-5.1 [facility] Serum or plasma sodium measu rement (moles/volume)Ordered By: Walter Montgomery on 12-13-2021 Sodium [Moles/Vol] 137 mmol/L 136-146 [facility] Serum or plasma total biliru bin measurement (mass/volume)Ordered By: Walter Montgomery on 12-13-2021 Bilirubin [Mass/Vol] 0.7 mg/dL 0.3-1.2 [facility] Serum or plasma total carbon dioxide measurement (moles/volume)Ordered By: Walter Montgomery on 12-13-2021 CO2 [Moles/Vol] 24.6 mmol/L 22.0-30.[address] [facility] Serum or plasma urea nitroge n measurement (mass/volume)Ordered By: Walter Montgomery on 12-13-2021 Urea nitrogen [Mass/Vol] 12 mg/dL 9-23 [facility] Activated partial thrombopla stin time (aPTT) in platelet poor plasma by coagulation aOrdered By: Walter Montgomery on 12-12-2021 aPTT Coag (PPP) [Time] 30.0 s 25.1-36.5 [facility] - CoagulationOrde red By: Walter Montgomery on 12-12-2021 PT Coag (PPP) [Time] 14.1 s 9.0-12.9 [facility] Platelet poor plasma interna tional normalized ratio (INR) by coagulation assay (relatOrdered By: Walter Montgomery on 12-12-2021 INR Coag (PPP) [Relative time] 1.3 {INR} [facility] Comment on above: INR Therapeutic [...] 12-12-2021 ALP [Catalytic activity/Vol] 92 U/L 32-92 [facility] Serum or plasma aspartate am inotransferase measurement (enzymatic activity/volume)Ordered By: Walter Montgomery on 12-12-2021 AST [Catalytic activity/Vol] 22 U/L 10-42 [facility] Albumin [Mass/volume] in Ser um or PlasmaOrdered By: Arleen Stephen on 12-11-2021 Albumin [Mass/Vol] 2.9 g/dL 3.2-5.5 [facility] Globulin Calc (S) [Mass/Vol] Ordered By: Arleen Stephen on 12-11-2021 Globulin (S) [Mass/Vol] 3.0 g/dL [facility] No Panel InformationOrdered By: Arleen Stephen on 12-11-2021 Bedside Glucose Comment Glu2: cleaned meter [facility] Protein [Mass/volume] in Ser um or PlasmaOrdered By: Arleen Stephen on 12-11-2021 Protein [Mass/Vol] 5.9 g/dL 6.1-7.9 [facility] Serum or plasma alanine tucker otransferase measurement without P-5'-P (enzymatic activiOrdered By: Arleen Stephen on 12-11-2021 ALT No additional P-5'-P [Catalytic activity/Vol] 16 U/L 10-60 [facility] Serum or plasma albumin/glob ulin mass ratioOrdered By: Arleen Stephen on 12-11-2021 Albumin/Globulin [Mass ratio] 1.0 {ratio} [facility] Serum or plasma calcium steve urement (mass/volume)Ordered By: Arleen Stephen on 12-11-2021 Calcium [Mass/Vol] 9.2 mg/dL 8.2-10.2 [facility] Serum or plasma glucose steve urement (mass/volume)Ordered By: Arleen Stephen on 12-11-2021 Glucose [Mass/Vol] 204 mg/dL 70-100 [facility] Comment on above: ADA recommended refe rence range Random Glucose Reference Range is dependent on time and content of last meal. Glucose of more than 200 mg/dL in a nonstressed, ambulatory subject supports the diagnosis of Diabetes Mellitus. Urine culture routineOrdered By: Tray Randle on 12-11-2021 Bacteria identified Cx Nom (U) Escherichia coli [facility] Automated erythrocytes count in urine sediment (number/area)Ordered By: Tray Randle on 12-09-2021 RBC Auto (Urine sed) [#/Area] 5-9 [HPF] 0-4 [facility] Automated leukocytes count i n urine sediment (number/area)Ordered By: Tray Randle on 12-09-2021 WBC Auto (Urine sed) [#/Area] 50-100 [HPF] 0-4 [facility] Automated urine hyaline cast s count (number/volume)Ordered By: Tray Randle on 12-09-2021 Hyaline casts Auto (U) [#/Vol] None seen [LPF] 0-1 [facility] Bilirubin Test strip Ql (U)O rdered By: Tray Randle on 12-09-2021 Bilirubin Ql (U) Negative Negative [facility] COVID-19 Positive/NegativeOr dered By: Tray Randle on 12-09-2021 SARS-CoV-2 (COVID-19) N gene TEJINDER+probe Ql (Resp) Negative Negative [facility] Comment on above: Testing for SARS-CoV -2 by RT-PCR This test was developed and its performance characteristics determined by [employer] (BD) and validated at the [facility]. This test has not been [...] (COVID-19) Ag IA.rapid Ql (Resp) Negative Negative [facility] Comment on above: This is a duplicate Molly SARS Antigen (ANUP) result to be used for statistical tracking purpose only. Casts typing in urine sedime nt by light microscopyOrdered By: Tray Randle on 12-09-2021 Casts LM Nom (Urine sed) None seen [LPF] None Seen [facility] Color Auto (U)Ordered By: Carolina Randle on 12-09-2021 Color (U) Yellow Yellow [facility] Ketones Auto test strip (U) [Mass/Vol]Ordered By: Tray Randle on 12-09-2021 Ketones (U) [Mass/Vol] Negative Negative [facility] Nitrite Test strip Ql (U)Ord ered By: Tray Randle on 12-09-2021 Nitrite Ql (U) Positive Negative [facility] No Panel InformationOrdered By: Tray Randle on 12-09-2021 SARS Antigen (LFIA) [facility] Protein Auto test strip (U) [Mass/Vol]Ordered By: Tray Randle on 12-09-2021 Protein (U) [Mass/Vol] Negative Negative [facility] Specific gravity Auto test s trip (U) [Rel density]Ordered By: Tray Randle on 12-09-2021 Specific gravity (U) [Rel density] 1.030 1.001-1.03 0 [facility] Squamous epithelial cells de tection in urine sediment by light microscopyOrdered By: Tray Randle on 12-09-2021 Epithelial cells.squamous LM Ql (Urine sed) 10-19 [HPF] 0-2 [facility] Troponin I.cardiac [Mass/vol ume] in Serum or Plasma by High sensitivity methodOrdered By: Arleen Stephen on 12-09-2021 Troponin I.cardiac High sensitivity method [Mass/Vol] 5 pg/mL 0-15 [facility] Urine bacteria detection by automated methodOrdered By: Tray Randle on 12-09-2021 Bacteria Auto Ql (U) 4+ None Seen [facility] Urine clarity by refractomet ry automatedOrdered By: Tray Randle on 12-09-2021 Clarity Refractometry automated (U) Cloudy Clear [facility] Urine glucose measurement by automated test strip (mass/volume)Ordered By: Tray Randle on 12-09-2021 Glucose Auto test strip (U) [Mass/Vol] >=1000 mg/dL Normal [facility] Urine hemoglobin detection b y automated test stripOrdered By: Tray Randle on 12-09-2021 Hemoglobin Auto test strip Ql (U) Trace Negative [facility] Urine lactic acid measuremen tOrdered By: Arleen Stephen on 12-09-2021 Lactate (U) [Moles/Vol] 1.7 mmol/L 0.5-2.[address] [facility] Urine leukocyte esterase det ection by automated test stripOrdered By: Tray Randle on 12-09-2021 Leukocyte esterase Auto test strip Ql (U) 2+ Negative [facility] Urobilinogen Auto test strip (U) [Mass/Vol]Ordered By: Trayumu Randle on 12-09-2021 Urobilinogen (U) [Mass/Vol] Normal mg/dL Normal [facility] pH Auto test strip (U)Ordere d By: Tray Jer on 12-09-2021 pH (U) 5.5 [pH] 5.0-9.0 [facility] A1C HEMOGLOBINon 10-12-2021 HbA1c (Bld) [Mass fraction] 7.5 % [employer] Other HbA1c (Bld) [Mass fraction]o n 10-12-2021 A1C HEMOGLOBIN [employer] Other A1C HEMOGLOBINon 07-10-2021 HbA1c (Bld) [Mass fraction] 6 % [employer] Other Glucose - FINGER STICKon Glucose [Mass/Vol] 150 mg/dL [employer] Other HbA1c (Bld) [Mass fraction]o n 07-10-2021 A1C HEMOGLOBIN [employer] Other A1C HEMOGLOBINon 03-27-2021 HbA1c (Bld) [Mass fraction] 6.9 % [employer] Other Glucose - FINGER STICKon Glucose [Mass/Vol] 244 mg/dL [employer] Other HbA1c (Bld) [Mass fraction]o n 03-27-2021 A1C HEMOGLOBIN [employer] Other PROGRESSon 02-12-2019 PROGRESS HNO ID: [id number] Author: Clyde Hall Service: ? Author Type: [...] still. - RTC to see Nov at [facility], to ensure complete healing, and further discuss plan of care re pathology results. - call office prn for issues/concerns Clyde Hall APRN.[facility] Normal [facility] CNOVon 02-11-2019 CNOV Office Visit (GYNML) -------- TAYE GAY ([id number]) 1955 F Date Time Provider Department 02/11/19 2:30 PM CLYDE HALL (JA[facility]) GYN During your visit today, we recorded the following information about you: Temperature Pulse Blood pressure Weight 98.7 degrees 99/minute 124/67 93.3 kg Clyde Hall APRN.[employer] 02/12/2019 12:57 PM Signed Taye presents for [...] still. - RTC to see Nov at [facility], to ensure complete healing, and further discuss plan of care re pathology results. - call office prn for issues/concerns Clyde Hall APRN.[employer] Referring Provider: THEO JOAQUIN [[id number]] Allergies As of Date: 02/11/2019 Noted Allergy [...] Status:Closed by CLYDE HALL CNP on 02/12/19 [facility] CNOVon 01-21-2019 CNOV Office Visit (GYNML) -------- PRITITAYE Vegas ([id number]) 1955 F Date Time Provider Department 01/21/19 10:45 AM THEO JOAQUIN GYNML During your visit today, we recorded the following information about you: Temperature Pulse Blood pressure Weight 98.6 degrees 94/minute 111/52 91.4 kg Theo Joaquin MD 01/22/2019 2:06 PM Signed Gynecologic Oncology [facility] Re: Taye Gay CCF#:[id number] 01/21/2019 Dear Nereida Castro: Taye presents for [...] were sent to: Nereida Castro MD (DrC) [facility] [address] [address] CC: Jonas Yoder MD (PCP) Referring Provider: THEO JOAQUIN [[id number]] Allergies As of Date: 01/21/2019 Noted Allergy [...] Status:Closed by THEO JOAQUIN MD on 01/22/19 [facility] PROGRESSon 01-08-2019 PROGRESS HNO ID: [id number] Author: Theo Joaquin Service: ? Author Type: Physician Type: Progress Notes Filed: 01/22/2019 2:06 PM Note Text: Gynecologic Oncology [facility] Re: Taye Gay CCF#:[id number] 01/21/2019 Dear Nereida Castro: Taye presents for [...] were sent to: Nereida Castro MD (DrC) [address] [place] [id number] CC: [facility] (GY[facility]ML) -------- PRITI,TAYE ([id number]) 1955 F Date Time Provider Department 01/07/19 8:30 AM THEO JOAQUIN GYN During your visit today, we recorded the following information about you: Temperature Pulse Blood pressure Weight 98.4 degrees 124/minute 103/53 90.2 kg Theo Joaquin MD 01/10/2019 11:17 PM Signed Gynecologic Oncology [facility] Re: Taye Gay CCF#:[id number] 01/07/2019 Dear Nereida Castro: Taye presents for [...] note were sent to: Nereida Castro MD ([facility]) [facility] [address] CC: Jonas Yoder MD (PCP) Referring Provider: THEO JOAQUIN [[id number]] Allergies As of Date: 01/07/2019 Noted Allergy [...] Status:Closed by THEO JOAQUIN MD [facility] Telephone ([employer]) -------- TAYE GAY ([id number]) 1955 F Date Time Provider Department 01/06/19 [...] Appointment made with Dr. Joaquin 01/07 @ 7900 for wound check Patient verbalized understanding and [...] More... Encounter Status:Closed by NELIASHANTEL on 01/06/19 [facility] PROGRESSon 01-06-2019 PROGRESS HNO ID: [id number] Author: Theo Joaquin Service: ? Author Type: Physician Type: Progress Notes Filed: 01/10/2019 11:17 PM Note Text: Gynecologic Oncology [facility] Re: Taye Gay CCF#:[id number] 01/07/2019 Dear Nereida Castro: Taye presents for [...] were sent to: Nereida Castro MD (DrC) [address] [place] [id number] CC: Jonas Yoder MD (PCP) [facility] ANES Yousuf 01-01-2019 ANES POST HNO ID: [id number] Author: Katharina Druham Service: Anesthesiology Author Type: Anesthesiologist Type: Anesthesia [...] 01, 2019 TIME: 9:45 AM PAGER/CONTACT #: [facility] ANES PREOPon 01-01-2019 ANES PREOP HNO ID: [id number] Author: Katharina Durham Service: Anesthesiology Author Type: [...] ASA Monitors Pain Management Plan: ROOT Protocol [facility] Chart Review ACTIVE PROBLEM LIST Hypertension [...] for 7 days Inpatient medications reviewed in [facility]. I have interviewed and examined the [...] 01, 2019 TIME: 7:35 AM PAGER/CONTACT #: [facility] HISTORY PHYSICALon 9 HISTORY PHYSICAL HNO ID: [id number] Author: Petty Shahid (Fel) Service: Gynecology Oncology [...] January 01, 2019 TIME: 7:16 AM PAGER: [facility] OPERATIVE NOon 01-01-2019 OPERATIVE NO HNO ID: [id number] Author: Theo Joaquin Service: Gynecology Oncology Author Type: Physician Type: Operative Report Filed: 01/17/2019 7:16 PM Note Text: OPERATIVE/PROCEDURE REPORT LOG ID: [id number] SURGERY/PROCEDURE DATE: 01/01/2019 INCISION/PROCEDURE START TIME: 8:11 AM INCISION CLOSE/PROCEDURE END TIME: 8:34 AM SURGEON(S)/PROCEDURALIST (S) AND NURSE SUBSTANCE ABUSE(S): Surgeon(s) and Role: * Theo Joaquin - [...] 03, 2019 TIME: 2:24 PM PAGER/CONTACT #: [facility] PT EDon 01-01-2019 PT ED HNO ID: [id number] Author: Patty (Rn) BRENDA Bernal Service: Nursing [...] st Electronically Signed By: Patty Bernal RN [facility] PT ED HNO ID: [id number] Author: Milly GalvinRnOziel Murry RN Service: Nursing [...] None Electronically Signed By: Milly Murry RN [facility] PT ED HNO ID: [id number] Author: Jelly GalvinRnOziel Simmons RN Service: Nursing [...] Electronically Signed By: Jelly Simmons RN Normal [facility] SURGICAL PATHOLOGYon 019 SURGICAL PATHOLOGY Specimen originated from [facility] Specimen #: [id number] Submitting Physician: THEO JOAQUIN MD __ FINAL [...] o'clock. WE/kr 01/01/2019 Gross examination performed at [facility], [address] [address] Date of Report: 01/05/2019 Date of Procedure: 01/01/2019 Date of Receipt: 01/01/2019 Submitted by: THEO JOAQUIN MD Location: [facility] Diagnostic interpretation performed at [facility], [address] [place] [address]. CLIA Number: [id number] [facility] NURSING PROGon 12-24-2018 NURSING PROG HNO ID: [id number] Author: Nataliya Bell RN Service: Nursing Author [...] Bell RN December 24, 2018 3:07 PM [facility] Confirm Blood Typeon 019 ABO/RH(D) Positive [facility] Comment on above: Performed By: #### C ONABO #### [facility] [address] [phone] Type and SCR (30D)on 019 ABO/RH(D) Positive [facility] Comment on above: Performed By: #### T SCR30 #### [facility] [address] [phone] HOSPon 12-05-2018 HOSP Patient:Taye Gay MRN: Height:5' [...] 51.2 % 12/17/2018 46.0 36.0 Progress Notes (PEDIATRIC DENTAL ASSISTANT [facility]): Aracelis Charles, RN, RN 12/22/2018 11:38 AM Signed Pre-op teaching Procedure: vulvar surgery Physician: Location: [facility]: [phone] Date AND Time: 01/01/19 MEDICAL CLEARANCE: No [...] Naprosyn(naproxen) Agrylin NSAIDS Pepto-Bismol Aleve Ecotrin Persantine [place] Excedrin Plaquenil Anacin Heparin Plavix Ascriptin Herbals [...] diet as tolerated and as ordered by , drink 8 glasses of water a day, [...] - IV pain medication after surgery, IV STATE HISTORICAL SOCIETY DIRECTOR if ordered by MD, discharged home with a prescription for PO pain medication, pain management after surgery, side effects of pain medication (including constipation, dizziness, drowsiness, and medication interactions). DVT PROPHYLAXIS - Early ambulation, SCDs, injectable anticoagulants (heparin, lovenox, etc) RESPIRATORY - Incentive spirometer, coughing/deep breathing exercises, ambulation. RETURN TO WORK - As directed by physician, please send any FMLA papers to physician's take up operator. SYMPTOMS TO NOTIFY MD - Fever, chills, nausea, vomiting, increased or severe pain, heavy vaginal bleeding, foul smelling vaginal drainage, pain or swelling in extremities. URGENT SYMPTOMS - Call 911 or go to ER if any shortness of breath, difficulty breathing, or chest pain. HOW TO CONTACT PHYSICIAN - Physician's office phone number given to patient, if after hours patient instructed to call blender operator and ask for the doctor environmental epidemiologist. Patient and family have phone number to call 24 hours/day. Patient Evaluation: Verbalizes understanding Patient and/or family express understanding of upcoming surgery and the operative process. Questions answered. Follow Up Plan: Follow up as needed Supplemental Material Given: Pre-operative teaching packet provided to the patient: INPATIENT/OUTPATIENT printed instructions; Post-operative instruction sheet, bowel prep instruction sheet For questions contact: office at [phone] Instructed By Aracelis Charles RN [facility] Serum or plasma calcidiol me asurement (mass/volume)on 07-10-2018 25-hydroxyvitamin D3 [Mass/Vol] 32.8 ng/mL 30-100 [facility] Comment on above: VITAMIN D STATUS 25( [place])VITAMIN D RANGE (ng/mL) Deficient <20 Insufficient 20 to <30Sufficient 30 to 100Reference: Sandra MF,Felisha NC, Leon SHERWOOD, et al. Evaluation,treatment, and prevention of vitamin D deficiency; an Endocrine Society clinical practice guideline. JCEM. 2010; 96(2):1911-30. Vitamin B12 ser/plason 07-10 Cobalamin (Vitamin B12) [Mass/Vol] 446 pg/mL 180-914 [facility] BASIC METABOLIC PANELon 04-29 Anion gap 11 mmol/L Normal 0-19 [facility] Comment on above: Performed By: #### B MP ####[address],[place] [address] BUN/Creatinine Ratio 16.0 RATIO Normal 8-21 [facility] Comment on above: Performed By: #### B MP ####[address],[place] [address] Calcium 9.1 mg/dL Normal 8.5-10.4 [facility] Comment on above: Performed By: #### B MP ####[address],[place] [address] Chloride 98 mmol/L Normal 97-107 [facility] Comment on above: Performed By: #### B MP ####[address],[place] [address] CO2 25 mmol/L Normal 24-31 [facility] Comment on above: Performed By: #### B MP ####[address],[place] [address] Creatinine 0.5 mg/dL Normal 0.4-1.6 [facility] Comment on above: Performed By: #### B MP ####[address],[place] [address] eGFR (MDRD) Normal [facility] Comment on above: Result Comment: 134G FR ml/min/1.73m2 Stage -----90 160-89 230-59 315-29 4<15 5For -Americans, multiply EGFR result by 1.210Calculation not validated for patients under 18 years of age.Performed at [facility],[address],[place] [address] Performed By: #### B MP ####[address],[place] [address] Glucose mass conc 331 mg/dL High 65-99 [facility] Comment on above: Performed By: #### B MP ####[address],[place] [address] Potassium molar conc 4.6 mmol/L Normal 3.4-5.1 [facility] Comment on above: Performed By: #### B MP ####[address],[place] [address] Sodium 134 mmol/L Normal 133-145 [facility] Comment on above: Performed By: #### B MP ####[address],[place] [address] Urea nitrogen 8 mg/dL Normal 8-25 [facility] Comment on above: Performed By: #### B MP ####[address],[place] [address] EKGon 05-16-2017 EKG EKGVentric ular Rate : 60 BPMAtrial Rate : 60 BPMP-R Interval : 166 msQRS Duration : 80 msQ-T Interval : 432 msQTC Calculation(Bezet) : 432 msCalculated P Sloan : 63 degreesCalculated R Sloan : 29 degreesCalculated T Sloan : 35 degreesDiagnosis:Normal sinus rhythmNormal ECGNo previous ECGs availableConfirmed by Walter Slaughter ([id number]) on 05/16/2017 3:45:18 PM Normal [facility] HEMOGLOBIN,HCTon 05-16-2017 Hematocrit (HCT) High 36-44 [facility] Comment on above: Result Comment: 49.3 Performed at [facility],[address] ,[place] [address] Performed By: #### H H ####[address],[place] [address] Hemoglobin mass conc (Bld) 16.9 g/dL High 12.0-15.0 [facility] Comment on above: Performed By: #### H H ####[address],[place] [address] Operative Reporton 8 Operative Report Normal [facility] POCT GLUCOSEon 05-16-2017 Glucose mass conc 268 mg/dL High 65-99 [facility] Comment on above: Performed By: #### P CGL ####[facility] [address] [place] [address] Glucose mass conc 292 mg/dL High 65-99 [facility] Comment on above: Performed By: #### P CGL ####[facility] [address] [place] [address] Glucose mass conc 358 mg/dL High 65-99 [facility] Comment on above: Performed By: #### P CGL ####[facility] [address] [place] [address] Glucose mass conc 243 mg/dL High 65-99 [facility] Comment on above: Performed By: #### P CGL ####[facility] [address] [place] [address] Vital Signs Date Time Vital Sign Value Performing Clinician Yue perez 10-06-2024 13:57-0400 Body height 170.2 cm Oz Kincaid MD Work Phone: [facility] 10-06-2024 13:57-0400 Body mass index (BMI) [Ratio] 31.48 kg/m2 Oz Kincaid MD Work Phone: [facility] 10-06-2024 13:57-0400 Body weight 91.17 kg Oz Kincaid MD Work Phone: [facility] 10-01-2024 14:59-0400 Body height 170.18 cm Sandra Keita DO Work Phone: [facility] 10-01-2024 14:59-0400 Body mass index (BMI) [Ratio] 31.4 kg/m2 Sandra Keita DO Work Phone: [facility] 10-01-2024 14:59-0400 Body weight 91.17 kg Sandra Keita DO Work Phone: [facility] 10-01-2024 14:59-0400 Diastolic blood pressure 65 mm[Hg] Sandra Keita DO Work Phone: [facility] 10-01-2024 14:59-0400 Heart rate 65 /min Sandra Keita DO Work Phone: [facility] 10-01-2024 14:59-0400 SaO2% (BldA) [Mass fraction] 95 % Sandra Keita DO Work Phone: [facility] 10-01-2024 14:59-0400 Systolic blood pressure 86 mm[Hg] Sandra Keita DO Work Phone: [facility] 09-10-2024 13:30-0400 Diastolic blood pressure 76 mm[Hg] Sandra Keita DO Work Phone: [facility] 09-10-2024 13:30-0400 Heart rate 79 /min Sandra Keita DO Work Phone: [facility] 09-10-2024 13:30-0400 Respiratory rate 16 /min Sandra Keita DO Work Phone: [facility] 09-10-2024 13:30-0400 SaO2% (BldA) [Mass fraction] 95 % Sandra Keita DO Work Phone: [facility] 09-10-2024 13:30-0400 Systolic blood pressure 116 mm[Hg] Sandra Keita DO Work Phone: [facility] 09-10-2024 13:00-0400 Inhaled oxygen flow rate 2 L/min Sandra Keita DO Work Phone: [facility] 09-10-2024 11:07-0400 Body height 170.18 cm Sandra Keita DO Work Phone: [facility] 09-10-2024 11:07-0400 Body weight 90.71 kg Sandra Keita DO Work Phone: [facility] 09-07-2024 11:06-0400 Diastolic blood pressure 65 mm[Hg] Sandra Keita DO Work Phone: [facility] 09-07-2024 11:06-0400 Systolic blood pressure 112 mm[Hg] Sandra Keita DO Work Phone: [facility] 08-25-2024 13:37-0400 Body height 170.18 cm Sandra Keita DO Work Phone: [facility] 08-25-2024 13:37-0400 Body mass index (BMI) [Ratio] 31.8 kg/m2 Sandra Keita DO Work Phone: [facility] 08-25-2024 13:37-0400 Body weight 92.16 kg Sandra Keita DO Work Phone: [facility] 08-25-2024 13:37-0400 Diastolic blood pressure 66 mm[Hg] Sandra Keita DO Work Phone: [facility] 08-25-2024 13:37-0400 Heart rate 71 /min Sandra Keita DO Work Phone: [facility] 08-25-2024 13:37-0400 Respiratory rate 18 /min Sandra Keita DO Work Phone: [facility] 08-25-2024 13:37-0400 SaO2% (BldA) [Mass fraction] 96 % Sandra Keita DO Work Phone: [facility] 08-25-2024 13:37-0400 Systolic blood pressure 104 mm[Hg] Sandra Keita DO Work Phone: [facility] 08-20-2024 10:03-0400 Body height 170.18 cm Sandra Keita DO Work Phone: [facility] 08-20-2024 10:03-0400 Body mass index (BMI) [Ratio] 32.2 kg/m2 Sandra Keita DO Work Phone: [facility] 08-20-2024 10:03-0400 Body weight 93.3 kg Sandra Keita DO Work Phone: [facility] 08-20-2024 10:03-0400 Diastolic blood pressure 68 mm[Hg] Sandra Keita DO Work Phone: [facility] 08-20-2024 10:03-0400 Heart rate 64 /min Sandra Keita DO Work Phone: [facility] 08-20-2024 10:03-0400 Respiratory rate 18 /min Sandra Keita DO Work Phone: [facility] 08-20-2024 10:03-0400 SaO2% (BldA) [Mass fraction] 94 % Sandra Keita DO Work Phone: [facility] 08-20-2024 10:03-0400 Systolic blood pressure 138 mm[Hg] Sandra Keita DO Work Phone: [facility] 07-22-2024 11:19-0400 Body height 170.18 cm Sandra Keita DO Work Phone: [facility] 07-22-2024 11:19-0400 Body mass index (BMI) [Ratio] 31.3 kg/m2 Sandra Keita DO Work Phone: [facility] 07-22-2024 11:19-0400 Body temperature 98.2 [degF] Sandra Keita DO Work Phone: [facility] 07-22-2024 11:19-0400 Body weight 90.71 kg Sandra Keita DO Work Phone: [facility] 07-22-2024 11:19-0400 Diastolic blood pressure 68 mm[Hg] Sandra Keita DO Work Phone: [facility] 07-22-2024 11:19-0400 Heart rate 72 /min Sandra Keita DO Work Phone: [facility] 07-22-2024 11:19-0400 Respiratory rate 16 /min Sandrajacob Keita DO Work Phone: [facility] 07-22-2024 11:19-0400 SaO2% (BldA) [Mass fraction] 98 % Sandrajacob Keita DO Work Phone: [facility] 07-22-2024 11:19-0400 Systolic blood pressure 118 mm[Hg] Sandra Debbie DO Work Phone: [facility] 07-21-2024 14:48-0400 Body height 170.2 cm Oz Kincaid MD Work Phone: [facility] 07-21-2024 14:48-0400 Body mass index (BMI) [Ratio] 31.32 kg/m2 Oz Kincaid MD Work Phone: [facility] 07-21-2024 14:48-0400 Body weight 90.72 kg Oz Kincaid MD Work Phone: [facility] 06-26-2024 09:46-0500 Body height 170.2 cm Thuan Wise MD Work Phone: [facility] 06-26-2024 09:46-0500 Body mass index (BMI) [Ratio] 32.51 kg/m2 Thuan Wise MD Work Phone: [facility] 06-26-2024 09:46-0500 Body weight 94.17 kg Thuan Wise MD Work Phone: [facility] 06-26-2024 09:46-0500 Diastolic blood pressure 70 mm[Hg] Thuan Wise MD Work Phone: [facility] 06-26-2024 09:46-0500 Heart rate 62 /min Thuan Wise MD Work Phone: [facility] 06-26-2024 09:46-0500 Systolic blood pressure 116 mm[Hg] Thuan Wise MD Work Phone: [facility] 05-07-2024 13:07-0500 Body height 170.18 cm Sandra Keita DO Work Phone: [facility] 05-07-2024 13:07-0500 Body mass index (BMI) [Ratio] 32.9 kg/m2 Sandra Keita DO Work Phone: [facility] 05-07-2024 13:07-0500 Body weight 95.3 kg Sandra Keita DO Work Phone: [facility] 05-07-2024 13:07-0500 Diastolic blood pressure 52 mm[Hg] Sandra Keita DO Work Phone: [facility] 05-07-2024 13:07-0500 Heart rate 64 /min Sandra Keita DO Work Phone: [facility] 05-07-2024 13:07-0500 Respiratory rate 18 /min Sandra Keita DO Work Phone: [facility] 05-07-2024 13:07-0500 SaO2% (BldA) [Mass fraction] 97 % Sandra Keita DO Work Phone: [facility] 05-07-2024 13:07-0500 Systolic blood pressure 82 mm[Hg] Sandra Keita DO Work Phone: [facility] 04-30-2024 08:25-0500 Body temperature 97.8 [degF] Sandra Keita DO Work Phone: [facility] 04-30-2024 08:25-0500 Diastolic blood pressure 83 mm[Hg] Sandra Keita DO Work Phone: [facility] 04-30-2024 08:25-0500 Heart rate 64 /min Sandra Keita DO Work Phone: [facility] 04-30-2024 08:25-0500 Respiratory rate 18 /min Sandra Keita DO Work Phone: [facility] 04-30-2024 08:25-0500 SaO2% (BldA) [Mass fraction] 96 % Sandra Keita DO Work Phone: [facility] 04-30-2024 08:25-0500 Systolic blood pressure 141 mm[Hg] Sandra Keita DO Work Phone: [facility] 04-30-2024 05:12-0500 Body weight 96.2 kg Sandra Keita DO Work Phone: [facility] 04-28-2024 23:40-0500 Body height 170.18 cm Sandra Keita DO Work Phone: [facility] 04-28-2024 23:19-0500 Diastolic blood pressure 68 mm[Hg] Sandra Keita DO Work Phone: [facility] 04-28-2024 23:19-0500 Heart rate 72 /min Sandra Keita DO Work Phone: [facility] 04-28-2024 23:19-0500 Respiratory rate 18 /min Sandra Keita DO Work Phone: [facility] 04-28-2024 23:19-0500 SaO2% (BldA) [Mass fraction] 98 % Sandra Keita DO Work Phone: [facility] 04-28-2024 23:19-0500 Systolic blood pressure 135 mm[Hg] Sandra Keita DO Work Phone: [facility] 04-28-2024 19:39-0500 Body height 170.18 cm Sandra Keita DO Work Phone: [facility] 04-28-2024 19:39-0500 Body temperature 98.1 [degF] Sandra Keita DO Work Phone: [facility] 04-28-2024 19:39-0500 Body weight 95.4 kg Sandra Keita DO Work Phone: [facility] 04-28-2024 11:35-0500 Body height 170.18 cm Sandra Keita DO Work Phone: [facility] 04-28-2024 11:35-0500 Body mass index (BMI) [Ratio] 32.5 kg/m2 Sandra Keita DO Work Phone: [facility] 04-28-2024 11:35-0500 Body weight 94.34 kg Sandra Keita DO Work Phone: [facility] 04-28-2024 11:35-0500 Diastolic blood pressure 58 mm[Hg] Sandra Keita DO Work Phone: [facility] 04-28-2024 11:35-0500 Heart rate 71 /min Sandra Keita DO Work Phone: [facility] 04-28-2024 11:35-0500 Respiratory rate 18 /min Sandra Keita DO Work Phone: [facility] 04-28-2024 11:35-0500 SaO2% (BldA) [Mass fraction] 94 % Sandra Keita DO Work Phone: [facility] 04-28-2024 11:35-0500 Systolic blood pressure 94 mm[Hg] Sandra Keita DO Work Phone: [facility] 04-28-2024 10:15-0500 Body height 170.18 cm Sandra Keita DO Work Phone: [facility] 04-28-2024 10:15-0500 Body mass index (BMI) [Ratio] 32.7 kg/m2 Sandra Keita DO Work Phone: [facility] 04-28-2024 10:15-0500 Body temperature 97.9 [degF] Sandra Keita DO Work Phone: [facility] 04-28-2024 10:15-0500 Body weight 94.8 kg Sandra Keita DO Work Phone: [facility] 04-28-2024 10:15-0500 Diastolic blood pressure 64 mm[Hg] Sandra Keita DO Work Phone: [facility] 04-28-2024 10:15-0500 Heart rate 70 /min Sandra Keita DO Work Phone: [facility] 04-28-2024 10:15-0500 Respiratory rate 16 /min Sandra Keita DO Work Phone: [facility] 04-28-2024 10:15-0500 SaO2% (BldA) [Mass fraction] 96 % Sandra Keita DO Work Phone: [facility] 04-28-2024 10:15-0500 Systolic blood pressure 88 mm[Hg] Sandra Keita DO Work Phone: [facility] 04-27-2024 14:29-0500 Body height 170.18 cm Sandra Keita DO Work Phone: [facility] 04-27-2024 14:29-0500 Body temperature 98 [degF] Sandra Keita DO Work Phone: [facility] 04-27-2024 14:29-0500 Body weight 90.71 kg Sandra Keita DO Work Phone: [facility] 04-27-2024 14:29-0500 Diastolic blood pressure 61 mm[Hg] Sandra Keita DO Work Phone: [facility] 04-27-2024 14:29-0500 Heart rate 80 /min Sandra Keita DO Work Phone: [facility] 04-27-2024 14:29-0500 Respiratory rate 18 /min Sandra Keita DO Work Phone: [facility] 04-27-2024 14:29-0500 SaO2% (BldA) [Mass fraction] 93 % Sandra Keita DO Work Phone: [facility] 04-27-2024 14:29-0500 Systolic blood pressure 116 mm[Hg] Sandra Keita DO Work Phone: [facility] 04-14-2024 09:35-0500 Body height 170.18 cm Sandra Keita DO Work Phone: [facility] 04-14-2024 09:35-0500 Body mass index (BMI) [Ratio] 32.1 kg/m2 Sandra Keita DO Work Phone: [facility] 04-14-2024 09:35-0500 Body temperature 98 [degF] Sandra Keita DO Work Phone: [facility] 04-14-2024 09:35-0500 Body weight 92.98 kg Sandra Keita DO Work Phone: [facility] 04-14-2024 09:35-0500 Diastolic blood pressure 80 mm[Hg] Sandra Keita DO Work Phone: [facility] 04-14-2024 09:35-0500 Heart rate 78 /min Sandra Keita DO Work Phone: [facility] 04-14-2024 09:35-0500 Respiratory rate 20 /min Sandra Keita DO Work Phone: [facility] 04-14-2024 09:35-0500 SaO2% (BldA) [Mass fraction] 98 % Sandra Keita DO Work Phone: [facility] 04-14-2024 09:35-0500 Systolic blood pressure 126 mm[Hg] Sandra Keita DO Work Phone: [facility] 04-07-2024 13:26-0500 Body height 170.2 cm Oz Kincaid MD Work Phone: [facility] 04-07-2024 13:26-0500 Body mass index (BMI) [Ratio] 31.32 kg/m2 Oz Kincaid MD Work Phone: [facility] 04-07-2024 13:26-0500 Body weight 90.72 kg Oz Kincaid MD Work Phone: [facility] 03-25-2024 13:42-0500 Body height 170.2 cm Thuan Wise MD Work Phone: [facility] 03-25-2024 13:42-0500 Body mass index (BMI) [Ratio] 32.58 kg/m2 Thuan Wise MD Work Phone: [facility] 03-25-2024 13:42-0500 Body weight 94.35 kg Thuan Wise MD Work Phone: [facility] 03-25-2024 13:42-0500 Diastolic blood pressure 64 mm[Hg] Thuan Wise MD Work Phone: [facility] 03-25-2024 13:42-0500 Heart rate 63 /min Thuan Wise MD Work Phone: [facility] 03-25-2024 13:42-0500 Systolic blood pressure 100 mm[Hg] Thuan Wise MD Work Phone: [facility] 02-25-2024 13:55-0400 Body height 170.2 cm Oz Kincaid MD Work Phone: [facility] 02-25-2024 13:55-0400 Body mass index (BMI) [Ratio] 31.32 kg/m2 Oz Kincaid MD Work Phone: [facility] 02-25-2024 13:55-0400 Body weight 90.72 kg Oz Kincaid MD Work Phone: [facility] 02-25-2024 13:55-0400 Diastolic blood pressure 84 mm[Hg] Oz Kincaid MD Work Phone: [facility] 02-25-2024 13:55-0400 Heart rate 74 /min Oz Kincaid MD Work Phone: [facility] 02-25-2024 13:55-0400 Systolic blood pressure 130 mm[Hg] Oz Kincaid MD Work Phone: [facility] 02-14-2024 13:23-0400 Body height 170.18 cm Sandra Keita DO Work Phone: [facility] 02-14-2024 13:23-0400 Body weight 90.71 kg Sandra Keita DO Work Phone: [facility] 02-03-2024 11:56-0400 Body height 170.18 cm DO Sandra Keita Work Phone: [facility] 02-03-2024 11:56-0400 Body mass index (BMI) [Ratio] 31.6 kg/m2 DO Sandra Keita Work Phone: [facility] 02-03-2024 11:56-0400 Body weight 91.62 kg DO Sandra Keita Work Phone: [facility] 02-03-2024 11:56-0400 Diastolic blood pressure 68 mm[Hg] DO Sandra Keita Work Phone: [facility] 02-03-2024 11:56-0400 Heart rate 63 /min DO Sandra Keita Work Phone: [facility] 02-03-2024 11:56-0400 Respiratory rate 18 /min DO Sandra Keita Work Phone: [facility] 02-03-2024 11:56-0400 SaO2% (BldA) [Mass fraction] 98 % DO Sandra Keita Work Phone: [facility] 02-03-2024 11:56-0400 Systolic blood pressure 100 mm[Hg] DO Sandra Keita Work Phone: [facility] 01-15-2024 15:38-0400 Body height 170.18 cm DO Sandra Keita Work Phone: [facility] 01-15-2024 15:38-0400 Body mass index (BMI) [Ratio] 31.3 kg/m2 DO Sandra Keita Work Phone: [facility] 01-15-2024 15:38-0400 Body weight 90.77 kg DO Sandra Keita Work Phone: [facility] 01-07-2024 13:18-0400 Body height 170.2 cm Oz Kincaid MD Work Phone: [facility] 01-07-2024 13:18-0400 Body mass index (BMI) [Ratio] 31.32 kg/m2 Oz Kincaid MD Work Phone: [facility] 01-07-2024 13:18-0400 Body weight 90.72 kg Oz Kincaid MD Work Phone: [facility] 01-07-2024 13:18-0400 Diastolic blood pressure 74 mm[Hg] Oz Kincaid MD Work Phone: [facility] 01-07-2024 13:18-0400 Heart rate 62 /min zO Kincaid MD Work Phone: [facility] 01-07-2024 13:18-0400 Systolic blood pressure 107 mm[Hg] zO Kincaid MD Work Phone: [facility] 12-16-2023 10:40-0400 Body height 170.2 cm Thuan Wise MD Work Phone: [facility] 12-16-2023 10:40-0400 Body mass index (BMI) [Ratio] 30.48 kg/m2 Thuan Wise MD Work Phone: [facility] 12-16-2023 10:40-0400 Body weight 88.27 kg Thuan Wise MD Work Phone: [facility] 12-16-2023 10:40-0400 Diastolic blood pressure 64 mm[Hg] Thuan Wise MD Work Phone: [facility] 12-16-2023 10:40-0400 Heart rate 73 /min Thuan Wise MD Work Phone: [facility] 12-16-2023 10:40-0400 Systolic blood pressure 102 mm[Hg] Thuan Wise MD Work Phone: [facility] 11-18-2023 13:14-0400 Body height 170.18 cm DO Sandra Keita Work Phone: [facility] 11-18-2023 13:14-0400 Body mass index (BMI) [Ratio] 28.6 kg/m2 DO Sandra Debbie Work Phone: [facility] 11-18-2023 13:14-0400 Body weight 83 kg DO Sandra Keita Work Phone: [facility] 11-18-2023 13:14-0400 Diastolic blood pressure 62 mm[Hg] DO Sandra Keita Work Phone: [facility] 11-18-2023 13:14-0400 Heart rate 54 /min DO Sandra Keita Work Phone: [facility] 11-18-2023 13:14-0400 Respiratory rate 18 /min DO Sandra Keita Work Phone: [facility] 11-18-2023 13:14-0400 SaO2% (BldA) [Mass fraction] 97 % DO Sandra Keita Work Phone: [facility] 11-18-2023 13:14-0400 Systolic blood pressure 96 mm[Hg] DO Sandra Keita Work Phone: [facility] 11-14-2023 15:07-0400 Body height 170.18 cm DO Sandra Keita Work Phone: [facility] 11-14-2023 15:07-0400 Body mass index (BMI) [Ratio] 28.5 kg/m2 DO Asndra Keita Work Phone: [facility] 11-14-2023 15:07-0400 Body weight 82.8 kg DO Sandra Keita Work Phone: [facility] 11-14-2023 15:07-0400 Diastolic blood pressure 72 mm[Hg] DO Sandra Keita Work Phone: [facility] 11-14-2023 15:07-0400 Heart rate 67 /min DO Sandra Keita Work Phone: [facility] 11-14-2023 15:07-0400 Respiratory rate 18 /min DO Sandra Keita Work Phone: [facility] 11-14-2023 15:07-0400 SaO2% (BldA) [Mass fraction] 97 % DO Sandra Keita Work Phone: [facility] 11-14-2023 15:07-0400 Systolic blood pressure 110 mm[Hg] DO Sandra Keita Work Phone: [facility] 11-13-2023 13:54-0400 Body height 170.2 cm Jonas Ch MD Work Phone: [facility] 11-13-2023 13:54-0400 Body mass index (BMI) [Ratio] 28.19 kg/m2 Jonas Ch MD Work Phone: [facility] 11-13-2023 13:54-0400 Body weight 81.65 kg Jonas Ch MD Work Phone: [facility] 11-13-2023 13:54-0400 Diastolic blood pressure 70 mm[Hg] Jonas Ch MD Work Phone: [facility] 11-13-2023 13:54-0400 Heart rate 87 /min Jonas Ch MD Work Phone: [facility] 11-13-2023 13:54-0400 Systolic blood pressure 108 mm[Hg] Jonas Ch MD Work Phone: [facility] 11-12-2023 16:12-0400 Diastolic blood pressure 83 mm[Hg] DO Sandra Keita Work Phone: [facility] 11-12-2023 16:12-0400 Heart rate 61 /min DO Sandra Keita Work Phone: [facility] 11-12-2023 16:12-0400 Respiratory rate 16 /min DO Sandra Keita Work Phone: [facility] 11-12-2023 16:12-0400 SaO2% (BldA) [Mass fraction] 96 % DO Sandra Keita Work Phone: [facility] 11-12-2023 16:12-0400 Systolic blood pressure 149 mm[Hg] DO Sandra Keita Work Phone: [facility] 11-12-2023 12:16-0400 Body temperature 97.5 [degF] DO Sandra Keita Work Phone: [facility] 11-12-2023 06:00-0400 Body weight 83.5 kg DO Sandra Keita Work Phone: [facility] 11-10-2023 08:23-0400 Body height 170.18 cm DO Sandra Keita Work Phone: [facility] 11-10-2023 05:05-0400 Diastolic blood pressure 67 mm[Hg] DO Sandra Debbie Work Phone: [facility] 11-10-2023 05:05-0400 Heart rate 62 /min DO Sandra Debbie Work Phone: [facility] 11-10-2023 05:05-0400 Respiratory rate 18 /min DO Sandra Debbie Work Phone: [facility] 11-10-2023 05:05-0400 SaO2% (BldA) [Mass fraction] 100 % DO Sandra Debbie Work Phone: [facility] 11-10-2023 05:05-0400 Systolic blood pressure 144 mm[Hg] DO Sandra Debbie Work Phone: [facility] 11-10-2023 03:44-0400 Body temperature 98.1 [degF] DO Sandra Debbie Work Phone: [facility] 11-09-2023 22:16-0400 Body height 170.18 cm DO Sandra Debbie Work Phone: [facility] 11-09-2023 22:16-0400 Body weight 81.64 kg DO Sandra Debbie Work Phone: [facility] 11-05-2023 12:36-0400 SaO2% (BldA) [Mass fraction] 100 % DO Sandra Debbie Work Phone: [facility] 10-07-2023 09:48-0400 Body height 170.2 cm Jonas Ch MD Work Phone: [facility] 10-07-2023 09:48-0400 Body mass index (BMI) [Ratio] 28.19 kg/m2 Jonas Ch MD Work Phone: [facility] 10-07-2023 09:48-0400 Body weight 81.65 kg Jonas Ch MD Work Phone: [facility] 10-07-2023 09:48-0400 Diastolic blood pressure 90 mm[Hg] Jonas Ch MD Work Phone: [facility] 10-07-2023 09:48-0400 Heart rate 92 /min Jonas Ch MD Work Phone: [facility] 10-07-2023 09:48-0400 Systolic blood pressure 114 mm[Hg] Jonas Ch MD Work Phone: [facility] 09-17-2023 13:02-0400 Body height 167.64 cm DO Sandra Debbie Work Phone: [facility] 09-17-2023 13:02-0400 Body mass index (BMI) [Ratio] 29 kg/m2 DO Sandra Debbie Work Phone: [facility] 09-17-2023 13:02-0400 Body weight 81.67 kg DO Sandra Debbie Work Phone: [facility] 09-17-2023 13:02-0400 Diastolic blood pressure 64 mm[Hg] DO Sandra Debbie Work Phone: [facility] 09-17-2023 13:02-0400 Heart rate 117 /min DO Sandra Debbie Work Phone: [facility] 09-17-2023 13:02-0400 Respiratory rate 18 /min DO Sandra Debbie Work Phone: [facility] 09-17-2023 13:02-0400 SaO2% (BldA) [Mass fraction] 99 % DO Sandra Debbie Work Phone: [facility] 09-17-2023 13:02-0400 Systolic blood pressure 92 mm[Hg] DO Sandra Keita Work Phone: [facility] 09-14-2023 16:11-0400 Body temperature 97.7 [degF] DO Sandra Debbie Work Phone: [facility] 09-14-2023 16:11-0400 Diastolic blood pressure 70 mm[Hg] DO Sandra Keita Work Phone: [facility] 09-14-2023 16:11-0400 Heart rate 74 /min DO Sandra Keita Work Phone: [facility] 09-14-2023 16:11-0400 Respiratory rate 17 /min DO Sandra Keita Work Phone: [facility] 09-14-2023 16:11-0400 SaO2% (BldA) [Mass fraction] 95 % DO Sandra Keita Work Phone: [facility] 09-14-2023 16:11-0400 Systolic blood pressure 115 mm[Hg] DO Sandra Keita Work Phone: [facility] 09-14-2023 06:00-0400 Body weight 83.2 kg DO Sandra Keita Work Phone: [facility] 09-13-2023 12:41-0400 Body height 170.18 cm DO Sandra Keita Work Phone: [facility] 09-12-2023 13:58-0400 Body height 167.64 cm DO Sandra Keita Work Phone: [facility] 09-12-2023 13:58-0400 Body mass index (BMI) [Ratio] 29 kg/m2 DO Sandra Keita Work Phone: [facility] 09-12-2023 13:58-0400 Body weight 81.64 kg DO Sandra Keita Work Phone: [facility] 09-12-2023 13:58-0400 Diastolic blood pressure 81 mm[Hg] DO Sandra Keita Work Phone: [facility] 09-12-2023 13:58-0400 Heart rate 135 /min DO Sandra Keita Work Phone: [facility] 09-12-2023 13:58-0400 Respiratory rate 18 /min DO Sandra Keita Work Phone: [facility] 09-12-2023 13:58-0400 SaO2% (BldA) [Mass fraction] 97 % DO Sandra Keita Work Phone: [facility] 09-12-2023 13:58-0400 Systolic blood pressure 112 mm[Hg] DO Sandra Keita Work Phone: [facility] 07-17-2023 11:43-0400 Body height 167.64 cm [facility] 07-17-2023 11:43-0400 Body mass index (BMI) [Ratio] 28.8 kg/m2 [facility] 07-17-2023 11:43-0400 Body temperature 97.8 [degF] [facility] 07-17-2023 11:43-0400 Body weight 81.19 kg [facility] 07-17-2023 11:43-0400 Diastolic blood pressure 64 mm[Hg] [facility] 07-17-2023 11:43-0400 Heart rate 78 /min [facility] 07-17-2023 11:43-0400 Respiratory rate 16 /min [facility] 07-17-2023 11:43-0400 SaO2% (BldA) [Mass fraction] 98 % [facility] 07-17-2023 11:43-0400 Systolic blood pressure 112 mm[Hg] [facility] 06-19-2023 15:53-0500 Body height 167.64 cm [facility] 06-19-2023 15:53-0500 Body mass index (BMI) [Ratio] 28.9 kg/m2 [facility] 06-19-2023 15:53-0500 Body weight 81.33 kg [facility] 06-19-2023 15:53-0500 Diastolic blood pressure 68 mm[Hg] [facility] 06-19-2023 15:53-0500 Heart rate 95 /min [facility] 06-19-2023 15:53-0500 Respiratory rate 18 /min [facility] 06-19-2023 15:53-0500 SaO2% (BldA) [Mass fraction] 97 % [facility] 06-19-2023 15:53-0500 Systolic blood pressure 92 mm[Hg] [facility] 06-12-2023 15:38-0500 Body height 167.64 cm [facility] 06-12-2023 15:38-0500 Body mass index (BMI) [Ratio] 28.5 kg/m2 [facility] 06-12-2023 15:38-0500 Body weight 80.28 kg [facility] 06-12-2023 15:38-0500 Diastolic blood pressure 72 mm[Hg] [facility] 06-12-2023 15:38-0500 Heart rate 95 /min [facility] 06-12-2023 15:38-0500 Respiratory rate 18 /min [facility] 06-12-2023 15:38-0500 SaO2% (BldA) [Mass fraction] 99 % [facility] 06-12-2023 15:38-0500 Systolic blood pressure 111 mm[Hg] [facility] 03-04-2023 15:00-0500 Body height 167.64 cm Sandra Keita Other [employer] Other 03-04-2023 15:00-0500 Body mass index (BMI) [Ratio] 29.97 kg/m2 Sandra Keita Other [facility] Other 03-04-2023 15:00-0500 Body weight 84.23 kg Sandra Keita Other [employer] Other 03-04-2023 15:00-0500 Diastolic blood pressure 68 mm[Hg] Sandra Keita Other [employer] Other 03-04-2023 15:00-0500 Respiratory rate 18 /min Sandra Keita Other [facility] Other 03-04-2023 15:00-0500 SaO2% (BldA) [Mass fraction] 96 % Sandra Keita Other [facility] Other 03-04-2023 15:00-0500 Systolic blood pressure 98 mm[Hg] Sandra Keita Other [facility] Other 01-07-2023 14:00-0400 Body height 167.64 cm Tondra Mapus Other [employer] Other 01-07-2023 14:00-0400 Body mass index (BMI) [Ratio] 30.03 kg/m2 Tondra Mapus Other [employer] Other 01-07-2023 14:00-0400 Body weight 84.41 kg Tondra Mapus Other [facility] Other 01-07-2023 14:00-0400 Diastolic blood pressure 68 mm[Hg] Tondra Mapus Other [facility] Other 01-07-2023 14:00-0400 Respiratory rate 18 /min Tondra Mapus Other [facility] Other 01-07-2023 14:00-0400 SaO2% (BldA) [Mass fraction] 98 % Tondra Mapus Other [facility] Other 01-07-2023 14:00-0400 Systolic blood pressure 102 mm[Hg] Tondra Mapus Other [facility] Other 01-02-2023 11:00-0400 Body height 167.64 cm Brayden Noble Other [employer] Other 01-02-2023 11:00-0400 Body mass index (BMI) [Ratio] 29.7 kg/m2 Brayden Noble Other [facility] Other 01-02-2023 11:00-0400 Body weight 83.46 kg Brayden Noble Other [facility] Other 01-02-2023 11:00-0400 Diastolic blood pressure 78 mm[Hg] Brayden Noble Other [facility] Other 01-02-2023 11:00-0400 Systolic blood pressure 120 mm[Hg] Brayden Noble Other [facility] Other 11-28-2022 15:00-0400 Body height 167.64 cm Sandra Keita Other [facility] Other 11-28-2022 15:00-0400 Body mass index (BMI) [Ratio] 29.58 kg/m2 Sandra Keita Other [facility] Other 11-28-2022 15:00-0400 Body weight 83.14 kg Sandra Keita Other [facility] Other 11-28-2022 15:00-0400 Diastolic blood pressure 72 mm[Hg] Sandra Keita Other [facility] Other 11-28-2022 15:00-0400 Respiratory rate 20 /min Sandrarebecca Keita Other [facility] Other 11-28-2022 15:00-0400 SaO2% (BldA) [Mass fraction] 99 % Sandrajacob Keita Other [facility] Other 11-28-2022 15:00-0400 Systolic blood pressure 115 mm[Hg] Sandra Debbie Other [facility] Other 09-27-2022 14:15-0400 Body height 167.64 cm Tondra Mapus Other [facility] Other 09-27-2022 14:15-0400 Body mass index (BMI) [Ratio] 29.53 kg/m2 Tondra Mapus Other [facility] Other 09-27-2022 14:15-0400 Body weight 83.01 kg Tondra Mapus Other [facility] Other 09-27-2022 14:15-0400 Diastolic blood pressure 66 mm[Hg] Tondra Mapus Other [facility] Other 09-27-2022 14:15-0400 Respiratory rate 18 /min Tondra Mapus Other [facility] Other 09-27-2022 14:15-0400 SaO2% (BldA) [Mass fraction] 97 % Tondra Mapus Other [facility] Other 09-27-2022 14:15-0400 Systolic blood pressure 100 mm[Hg] Tondra Mapus Other [facility] Other 08-09-2022 16:15-0400 Body height 167.64 cm Sandra Keita Other [facility] Other 08-09-2022 16:15-0400 Body mass index (BMI) [Ratio] 29.86 kg/m2 Sandra Keita Other [facility] Other 08-09-2022 16:15-0400 Body weight 83.92 kg Sandra Keita Other [facility] Other 08-09-2022 16:15-0400 Diastolic blood pressure 74 mm[Hg] Sandra Keita Other [facility] Other 08-09-2022 16:15-0400 Respiratory rate 18 /min Sandra Keita Other [facility] Other 08-09-2022 16:15-0400 SaO2% (BldA) [Mass fraction] 97 % Sandra Keita Other [facility] Other 08-09-2022 16:15-0400 Systolic blood pressure 118 mm[Hg] Sandra Keita Other [facility] Other 06-18-2022 15:30-0500 Body height 167.64 cm Tondra Mapus Other [facility] Other 06-18-2022 15:30-0500 Body mass index (BMI) [Ratio] 35.34 kg/m2 Tondra Mapus Other [facility] Other 06-18-2022 15:30-0500 Body weight 99.34 kg Tondra Mapus Other [facility] Other 06-18-2022 15:30-0500 Diastolic blood pressure 72 mm[Hg] Tondra Mapus Other [facility] Other 06-18-2022 15:30-0500 Respiratory rate 18 /min Tondra Mapus Other [facility] Other 06-18-2022 15:30-0500 SaO2% (BldA) [Mass fraction] 97 % Tondra Mapus Other [facility] Other 06-18-2022 15:30-0500 Systolic blood pressure 108 mm[Hg] Tondra Mapus Other [facility] Other 01-09-2022 14:00-0400 Body height 167.64 cm Tondra Mapus Other [facility] Other 01-09-2022 14:00-0400 Body mass index (BMI) [Ratio] 28.73 kg/m2 Tondra Mapus Other [facility] Other 01-09-2022 14:00-0400 Body weight 80.74 kg Tondra Mapus Other [facility] Other 01-09-2022 14:00-0400 Diastolic blood pressure 79 mm[Hg] Tondra Mapus Other [facility] Other 01-09-2022 14:00-0400 Respiratory rate 16 /min Tondra Mapus Other [facility] Other 01-09-2022 14:00-0400 SaO2% (BldA) [Mass fraction] 97 % Tondra Pattersonus Other [facility] [employer] Other 01-09-2022 14:00-0400 Systolic blood pressure 127 mm[Hg] Tondra Mapus Other [employer] [facility] [employer] Other 12-17-2021 08:23-0400 Diastolic blood pressure 63 mm[Hg] DO Trayumu Randle [facility] 12-17-2021 08:23-0400 Heart rate 82 /min DO Tray Randle [facility] 12-17-2021 08:23-0400 Respiratory rate 18 /min DO Tray Randle [facility] 12-17-2021 08:23-0400 SaO2% (BldA) [Mass fraction] 98 % DO Trayumu Randle [facility] 12-17-2021 08:23-0400 Systolic blood pressure 135 mm[Hg] DO Tray Randle [facility] 12-17-2021 05:29-0400 Body height 170.18 cm DO Tray Randle [facility] 12-17-2021 05:29-0400 Body temperature 97.4 [degF] DO Tray Randle [facility] 12-17-2021 05:29-0400 Body weight 82.55 kg DO Tray Randle [facility] 12-14-2021 06:58-0400 Body height 170.18 cm DO Tray Randle [facility] 12-14-2021 06:58-0400 Body mass index (BMI) [Ratio] 29.2 kg/m2 DO Trayumu Randle [facility] 12-14-2021 06:58-0400 Body weight 84.8 kg DO Tray Randle [facility] 12-13-2021 11:06-0400 Body temperature 97.7 [degF] DO Tray Randle [facility] 12-13-2021 11:06-0400 Diastolic blood pressure 67 mm[Hg] DO Tray Randle [facility] 12-13-2021 11:06-0400 Heart rate 88 /min DO Tray Randle [facility] 12-13-2021 11:06-0400 Respiratory rate 16 /min DO Tray Randle [facility] 12-13-2021 11:06-0400 SaO2% (BldA) [Mass fraction] 93 % DO Tray Randle [facility] 12-13-2021 11:06-0400 Systolic blood pressure 119 mm[Hg] DO Trayumu Randle [facility] 12-13-2021 08:00-0400 Inhaled oxygen flow rate 3 L/min DO Tray Randle [facility] 10-12-2021 11:00-0400 Body height 167.64 cm Crispin Looney Other [employer] Other 10-12-2021 11:00-0400 Body mass index (BMI) [Ratio] 29.81 kg/m2 Crispin Looney Other [facility] Other 10-12-2021 11:00-0400 Body weight 83.78 kg Crispin Looney Other [facility] Other 10-12-2021 11:00-0400 Diastolic blood pressure 68 mm[Hg] Crispin Looney Other [facility] Other 10-12-2021 11:00-0400 Respiratory rate 18 /min Crispin Looney Other [facility] Other 10-12-2021 11:00-0400 SaO2% (BldA) [Mass fraction] 97 % Crispin Looney Other [facility] Other 10-12-2021 11:00-0400 Systolic blood pressure 97 mm[Hg] Crispin Looney Other [facility] Other 07-10-2021 14:30-0400 Body height 167.64 cm Tondra Mapus Other [employer] Other 07-10-2021 14:30-0400 Body mass index (BMI) [Ratio] 30.34 kg/m2 Tondra Mapus Other [employer] Other 07-10-2021 14:30-0400 Body weight 85.28 kg Tondra Mapus Other [facility] Other 07-10-2021 14:30-0400 Diastolic blood pressure 60 mm[Hg] Tondra Mapus Other [facility] Other 07-10-2021 14:30-0400 Respiratory rate 16 /min Tondra Mapus Other [facility] Other 07-10-2021 14:30-0400 SaO2% (BldA) [Mass fraction] 97 % Tondra Mapus Other [employer] Other 07-10-2021 14:30-0400 Systolic blood pressure 89 mm[Hg] Tondra Mapus Other [employer] Other 07-03-2021 16:00-0500 Body height 167.64 cm Gaudenciodaja Hahn Other [employer] Other 07-03-2021 16:00-0500 Body mass index (BMI) [Ratio] 30.5 kg/m2 Ruben Hahn Other [employer] Other 07-03-2021 16:00-0500 Body temperature 95.5 [degF] Ruben Hahn Other [facility] Other 07-03-2021 16:00-0500 Body weight 85.73 kg Ruben Hahn Other [facility] Other 07-03-2021 16:00-0500 Diastolic blood pressure 68 mm[Hg] Ruben Hahn Other [facility] Other 07-03-2021 16:00-0500 SaO2% (BldA) [Mass fraction] 99 % Ruben Hahn Other [employer] Other 07-03-2021 16:00-0500 Systolic blood pressure 94 mm[Hg] Ruben Avendañoracquel Other [employer] Other 05-08-2021 14:15-0500 Body height 167.64 cm Crispinjaclyn LeeAayush Other [employer] Other 05-08-2021 14:15-0500 Body mass index (BMI) [Ratio] 30.87 kg/m2 Crispinjaclyn LeeAayush Other [employer] Other 05-08-2021 14:15-0500 Body weight 86.77 kg Crispin Aayush Other [employer] Other 05-08-2021 14:15-0500 Diastolic blood pressure 58 mm[Hg] Crispin Looney Other [employer] Other 05-08-2021 14:15-0500 Respiratory rate 20 /min Crispin Looney Other [facility] Other 05-08-2021 14:15-0500 SaO2% (BldA) [Mass fraction] 98 % Crispin Looney Other [facility] Other 05-08-2021 14:15-0500 Systolic blood pressure 102 mm[Hg] Crispin Looney Other [facility] Other 04-03-2021 15:00-0500 Body height 167.64 cm Tray Nava Other [facility] Other 04-03-2021 15:00-0500 Body mass index (BMI) [Ratio] 30.99 kg/m2 Tray Nava Other [facility] Other 04-03-2021 15:00-0500 Body temperature 98.3 [degF] Tray Nava Other [facility] Other 04-03-2021 15:00-0500 Body weight 87.09 kg Tray Nava Other [facility] Other 04-03-2021 15:00-0500 Diastolic blood pressure 68 mm[Hg] Tray Nava Other [facility] Other 04-03-2021 15:00-0500 SaO2% (BldA) [Mass fraction] 93 % rTay Nava Other [facility] Other 04-03-2021 15:00-0500 Systolic blood pressure 110 mm[Hg] Tray Nava Other [facility] Other 03-27-2021 15:00-0500 Body height 167.64 cm Angelique Russell Other [facility] Other 03-27-2021 15:00-0500 Body mass index (BMI) [Ratio] 30.99 kg/m2 Tondra Mapus Other [facility] Other 03-27-2021 15:00-0500 Body weight 87.09 kg Tondra Mapus Other [facility] Other 03-27-2021 15:00-0500 Diastolic blood pressure 75 mm[Hg] Tondra Mapus Other [facility] Other 03-27-2021 15:00-0500 Respiratory rate 20 /min Tondra Mapus Other [facility] Other 03-27-2021 15:00-0500 SaO2% (BldA) [Mass fraction] 97 % Tondra Mapus Other [facility] Other 03-27-2021 15:00-0500 Systolic blood pressure 124 mm[Hg] Tondra Mapus Other [facility] Other 02-27-2021 16:00-0400 Body height 167.64 cm Tray Nava Other [facility] Other 02-27-2021 16:00-0400 Body mass index (BMI) [Ratio] 30.66 kg/m2 Tray Nava Other [facility] Other 02-27-2021 16:00-0400 Body weight 86.18 kg Tray Nava Other [facility] Other 02-27-2021 16:00-0400 Diastolic blood pressure 76 mm[Hg] Tray Nava Other [facility] Other 02-27-2021 16:00-0400 Systolic blood pressure 123 mm[Hg] Tray Nava Other [employer] Other 08-27-2017 12:01-0400 Body height 170.18 cm DO Jonas Yoder Work Phone: [facility] Encounters Encounter Date Encounter Type Care Provider Facility Start: 11-23-2024 End: 11-23-2024 Office outpatient visit 15 minutes Karl Fritz DPM Work Phone: [facility] Comment on above: Ulcer of right foot with fat layer exposed (HCC) (Primary Dx); 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); Abscess of right foot; At increased risk for emergency hospital admission Start: 11-23-2024 End: 11-23-2024 ambulatory KARL FRITZ Not Available Start: 11-23-2024 End: 11-23-2024 Bamboo flowsheet Karl Fritz DPM Work Phone: [facility] Start: 11-23-2024 End: 11-23-2024 Bamboo flowsheet Karl Fritz DPM Work Phone: [facility] Start: 11-16-2024 End: 11-16-2024 Departed Referred Karl Fritz DPM -Lab [facility] Work Phone: Start: 11-16-2024 End: 11-16-2024 Office outpatient visit 25 minutes Karl Fritz DPM Work Phone: [facility] Comment on above: Ulcer of right foot with fat layer exposed (HCC) (Primary Dx); 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); Cellulitis of right foot; Deformity of toe, right Start: 11-16-2024 End: 11-16-2024 ambulatory Sandra Keita DO Work Phone: [facility] Work Phone: Start: 11-16-2024 End: 11-17-2024 External Result Encounter Karl Fritz DPM Work Phone: [facility] External Department Unsolicited Start: 11-16-2024 End: 11-17-2024 External Result Encounter Karl Fritz DPM Work Phone: [facility] External Department Unsolicited Start: 11-09-2024 End: 11-09-2024 ambulatory Halie Marc MD Facility:[facility] Start: 10-31-2024 End: 11-02-2024 Refill Oz Kincaid MD Work Phone: [place] [phone] Comment on above: Neurogenic pain Start: 10-21-2024 End: 10-21-2024 Telephone encounter Oz Kincaid MD Work Phone: [place] [phone] Start: 10-20-2024 End: 10-20-2024 Bamboo flowsheet Karl Fritz DPM Work Phone: [facility] Start: 10-20-2024 End: 10-20-2024 Bamboo flowsheet Karl Fritz DPM Work Phone: [facility] Start: 10-20-2024 End: 10-20-2024 Office outpatient visit 25 minutes Karl Fritz DPM Work Phone: [facility] Comment on above: Ulcer of right foot with fat layer exposed (HCC) (Primary Dx); 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); Blister of right foot, initial encounter; Deformity, foot, right Start: 10-20-2024 End: 10-20-2024 ambulatory KARL FRITZ Not Available Start: 10-07-2024 End: 10-07-2024 Telephone encounter Oz Kincaid MD Work Phone: [facility] Start: 10-06-2024 End: 10-06-2024 Bamboo flowsheet Oz Kincaid MD Work Phone: [facility] Start: 10-06-2024 End: 10-06-2024 Bamboo flowsheet Oz Kincaid MD Work Phone: [facility]OLOG[facility] Start: 10-06-2024 End: 10-06-2024 Office outpatient visit 25 minutes Oz Kincaid MD Work Phone: [facility] NEUR B Comment on above: Weakness of both low er extremities (Primary Dx); Carpal tunnel syndrome, bilateral; Cognitive decline; Cervical paraspinal muscle spasm; B12 deficiency; Guyon syndrome, unspecified laterality; Numbness; Leg pain, left; Leg pain, right; Bilateral leg weakness Start: 10-06-2024 End: 10-06-2024 ambulatory OZ KINCAID Not Available Start: 10-05-2024 End: 10-05-2024 ambulatory Halie Marc MD Facility:[facility] Start: 10-01-2024 End: 10-01-2024 ambulatory Sandra Rebecca Keita DO Work Phone: [facility] Work Phone: Start: 10-01-2024 End: 10-01-2024 Patient encounter procedure Sandra Debbie DO Work Phone: [facility] Work Phone: Start: 09-10-2024 Non-patient / Non-visit Sandra Debbie DO Work Phone: [facility] Work Phone: Start: 09-10-2024 End: 09-10-2024 Admission to same day surgery center Sandra Debbie DO Work Phone: [facility]-Digestive Health Work Phone: Start: 09-10-2024 End: 09-10-2024 ambulatory Sandra Rebecca Keita DO Work Phone: [facility] Work Phone: Start: 09-07-2024 End: 09-07-2024 ambulatory Sandra A Keita DO Work Phone: [facility] Work Phone: Start: 09-07-2024 End: 09-07-2024 Patient encounter procedure Sandra Keita DO Work Phone: [facility] Neurosurgery Work Phone: Start: 08-25-2024 End: 08-25-2024 ambulatory Sandra A Keita DO Work Phone: [facility] Work Phone: Start: 08-25-2024 End: 08-25-2024 Patient encounter procedure Sandra Keita DO Work Phone: [facility] Medicine [place] Work Phone: Start: 08-20-2024 End: 08-20-2024 ambulatory Sandra A Keita DO Work Phone: [facility] Work Phone: Start: 08-20-2024 End: 08-20-2024 Patient encounter procedure Sandra Keita DO Work Phone: [facility] Work Phone: Start: 07-22-2024 End: 07-22-2024 Patient encounter procedure Sandra Keita DO Work Phone: [facility] Vascular Surg Work Phone: Start: 07-22-2024 End: 07-22-2024 ambulatory Sandra A Keita DO Work Phone: [facility] Work Phone: Start: 07-21-2024 End: 07-21-2024 Office outpatient visit 15 minutes Oz Kincaid MD Work Phone: [facility] Comment on above: Cognitive decline (P rimary Dx); Cervical paraspinal muscle spasm; B12 deficiency; Carpal tunnel syndrome, bilateral; Guyon syndrome, unspecified laterality; Neurogenic pain Start: 07-21-2024 End: 07-21-2024 ambulatory OZ KINCAID Not Available Start: 07-06-2024 End: 07-06-2024 ambulatory Sandra Keita DO Work Phone: [facility] Work Phone: Start: 07-06-2024 End: 07-06-2024 Departed Referred Sandra Keita DO Work Phone: [facility]-LAB [facility] Start: 06-26-2024 End: 06-29-2024 External Result Encounter Nataliya Jane NP Other Phone: [facility] External Department Unsolicited Start: 06-26-2024 End: 06-29-2024 External Result Encounter Nataliya Jane NP Other Phone: [facility] External Department Unsolicited Start: 06-26-2024 Registered Recurring Sandra terrazas DO Work Phone: [facility]-Cancer Center Acute Work Phone: Start: 06-26-2024 End: 06-26-2024 Patient encounter procedure Sandra Keita DO Work Phone: [facility]-Lab Main [place] Work Phone: Start: 06-26-2024 End: 06-26-2024 ambulatory Sandra Keita DO Work Phone: [facility] Work Phone: Start: 06-26-2024 End: 06-26-2024 Office outpatient visit 25 minutes Thuan Wise MD Work Phone: [facility] Comment on above: Typical atrial flutt er (Multi) (Primary Dx); Nonischemic cardiomyopathy (Multi); Hypercholesteremia; Hypertension, unspecified type; BMI 32.0-32.9,adult; Current smoker Start: 06-26-2024 End: 06-26-2024 ambulatory [facility] Ambulatory Start: 06-04-2024 Non-patient / Non-visit Sandra Keita DO Work Phone: [facility] Work Phone: Start: 05-25-2024 End: 05-25-2024 Patient encounter procedure Sandra Keita DO Work Phone: [facility]-MRI [facility] [place] Work Phone: Start: 05-25-2024 End: 05-25-2024 ambulatory Sandra A Keita DO Work Phone: [facility] Work Phone: Start: 05-19-2024 End: 05-19-2024 Telephone encounter Oz Kincaid MD Work Phone: [facility] 111 Start: 05-07-2024 End: 05-07-2024 ambulatory Sandra A Keita DO Work Phone: [facility] Work Phone: Start: 05-07-2024 End: 05-07-2024 Patient encounter procedure Sandra Keita DO Work Phone: [facility] Work Phone: Start: 04-28-2024 End: 04-30-2024 Evaluation and management of inpatient Sandra Keita DO Work Phone: [facility] [place] [facility] Work Phone: Start: 04-28-2024 End: 04-28-2024 ambulatory Sandra A Keita DO Work Phone: [facility] Work Phone: Start: 04-28-2024 End: 04-28-2024 Patient encounter procedure Sandra Keita DO Work Phone: [facility] Work Phone: Start: 04-28-2024 End: 04-28-2024 Patient encounter procedure Sandra Keita DO Work Phone: [facility] Ambulatory Work Phone: Start: 04-27-2024 End: 04-27-2024 Emergency department patient visit Sandra Keita DO Work Phone: [facility]-Emergency Room Work Phone: Start: 04-14-2024 End: 04-14-2024 External Result Encounter Nataliya Jane REAL TIME OPERATOR Work Phone: [facility] External Department Unsolicited Start: 04-14-2024 End: 04-14-2024 External Result Encounter Nataliya Jane REAL TIME OPERATOR Work Phone: [facility] External Department Unsolicited Start: 04-14-2024 End: 04-14-2024 Patient encounter procedure Sandra Keita DO Work Phone: [facility] Ambulatory Work Phone: Start: 04-08-2024 End: 04-08-2024 Patient encounter procedure Karl Fritz DPM Work Phone: [facility] Comment on above: Ulcer of right [...] [facility] Start: 04-07-2024 End: 04-07-2024 Office outpatient visit 15 minutes Oz Kincaid MD Work Phone: [facility] Comment on above: Cognitive decline (P rimary Dx); B12 deficiency; Neurogenic pain; Carpal tunnel syndrome, bilateral; Cervical paraspinal muscle spasm; Guyon syndrome, unspecified laterality; Granulocytosis Start: 04-07-2024 End: 04-07-2024 ambulatory OZ KINCAID Not Available Start: 03-25-2024 End: 03-25-2024 ambulatory [facility] Ambulatory Start: 03-25-2024 End: 03-25-2024 Office outpatient visit 10 minutes Thuan Wise MD Work Phone: [facility] Comment on above: Hypertension, unspec ified type; Typical atrial flutter (Multi) Start: 02-25-2024 End: 02-25-2024 Office outpatient visit 25 minutes Oz Kincaid MD Work Phone: [facility] Comment on above: Cognitive decline (P rimary Dx); Neurogenic pain; Carpal tunnel syndrome, bilateral; B12 deficiency Start: 02-25-2024 End: 02-25-2024 Bamboo flowsheet Oz Kincaid MD Work Phone: [facility] Start: 02-25-2024 End: 02-25-2024 Bamboo flowsheet Oz Kincaid MD Work Phone: [facility] Start: 02-25-2024 End: 02-25-2024 ambulatory OZ KINCAID Not Available Start: 02-14-2024 End: 02-14-2024 ambulatory Sandra Keita Facility:[facility] Start: 02-14-2024 End: 02-14-2024 Departed Referred Sandra Keita DO Work Phone: [facility]-Digestive Health Work Phone: Start: 02-10-2024 End: 02-10-2024 Bamboo flowsheet Karl Fritz DPM Work Phone: [facility] Start: 02-10-2024 End: 02-10-2024 Bamboo flowsantonio Fritz DPM Work Phone: [facility] Start: 02-10-2024 End: 02-10-2024 Office outpatient visit 15 minutes Karl Fritz DPM Work Phone: [facility] Comment on above: Ulcer of right foot, limited to breakdown of skin (CMS/HCC) (Primary Dx); Blister of right foot, subsequent encounter; 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); Ulcer of right foot with fat layer exposed (CMS/HCC) Start: 02-10-2024 End: 02-10-2024 ambulatory KARL FRITZ Not Available Start: 02-03-2024 End: 02-03-2024 ambulatory DO Sandra Keita Work Phone: [facility] Work Phone: Start: 02-03-2024 End: 02-03-2024 Patient encounter procedure DO Sandra Keita Work [facility] Work Phone: Start: 01-27-2024 End: 01-27-2024 Bamboo flowsheet Karl Fritz DPM Work Phone: [facility] Start: 01-27-2024 End: 01-27-2024 Bamboo flowsantonio Fritz DPM Work Phone: [facility] Start: 01-27-2024 End: 01-27-2024 Office outpatient visit 15 minutes Karl Fritz DPM Work Phone: [facility] Comment on above: Ulcer of right foot, limited to breakdown of skin (CMS/HCC) (Primary Dx); Blister of right foot, subsequent encounter; 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) Start: 01-27-2024 End: 01-27-2024 ambulatory KARL FRITZ Not Available Start: 01-21-2024 End: 01-21-2024 Bamboo flowsheet Karl Fritz DPM Work Phone: [facility] Start: 01-21-2024 End: 01-21-2024 Bamboo flowsheet Karl Fritz DPM Work Phone: [facility] Start: 01-21-2024 End: 01-21-2024 Office outpatient visit 15 minutes Karl Fritz DPM Work Phone: [facility] Comment on above: Ulcer of right foot, limited to breakdown of skin (CMS/HCC) (Primary Dx); Blister of right foot, initial encounter; 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) Start: 01-21-2024 End: 01-21-2024 ambulatory KARL FRITZ Not Available Start: 01-15-2024 End: 01-15-2024 ambulatory DO Sandrajacob Keita Work Phone: [facility] Work Phone: Start: 01-15-2024 End: 01-15-2024 Patient encounter procedure DO Sandra Keita Work Phone: [facility] Work Phone: Start: 01-08-2024 End: 01-10-2024 Telephone encounter Oz Kincaid MD Work Phone: [facility] 111 Start: 01-07-2024 End: 01-07-2024 Bamboo flowsheet Karl Fritz DPM Work Phone: [facility] Start: 01-07-2024 End: 01-07-2024 Bamboo flowsheet Karl Fritz DPM Work Phone: [facility] Start: 01-07-2024 End: 01-07-2024 Office outpatient visit 25 minutes Oz Kincaid MD Work Phone: [facility] Comment on above: Lumbosacral radiculo mary jane at S1 (Primary Dx); Neurogenic pain; Cervical paraspinal muscle spasm; Lumbar paraspinal muscle spasm; Carpal tunnel syndrome, bilateral; B12 deficiency Start: 01-07-2024 End: 01-07-2024 Departed Referred DO Sandra Debbie Work Phone: [facility]-Lab [facility] [place] Work Phone: Start: 01-07-2024 End: 01-07-2024 Office outpatient visit 25 minutes Karl Fritz DPM Work Phone: [facility] Comment on above: Ulcer of right foot, limited to breakdown of skin (CMS/HCC) (Primary Dx); Cellulitis of right foot Start: 01-07-2024 End: 01-07-2024 ambulatory DO Sandra Rebecca Keita Work Phone: [facility] Work Phone: Start: 01-06-2024 End: 01-06-2024 Patient encounter procedure DO Sandra Keita Work Phone: [facility]-Ultrasound [place] Work Phone: Start: 01-06-2024 End: 01-06-2024 ambulatory DO Sandra Rebecca Keita Work Phone: [facility] Work Phone: Start: 01-03-2024 End: 01-03-2024 Clinical Support Oz Kincaid MD Work Phone: [facility] Comment on above: Carpal tunnel syndro me, bilateral (Primary Dx) Start: 01-03-2024 End: 01-03-2024 Bamboo flowsheet Oz Kincaid MD Work Phone: [facility] Start: 01-03-2024 End: 01-03-2024 Bamboo flowsheet Oz Kincaid MD Work Phone: [facility] Start: 12-17-2023 End: 12-17-2023 Patient encounter procedure DO Sandra Debbie Work Phone: [facility]-MRI [address] Work Phone: Start: 12-17-2023 End: 12-17-2023 ambulatory DO Sandra A Keita Work Phone: [facility] Work Phone: Start: 12-16-2023 End: 12-16-2023 [facility] Start: 12-16-2023 End: 12-16-2023 Office outpatient visit 25 minutes Thuan Wise MD Work Phone: [facility] Comment on above: High risk medication use (Primary Dx); Typical atrial flutter (Multi); Nonischemic cardiomyopathy (Multi); Hypercholesteremia; BMI 28.0-28.9,adult; BMI 30.0-30.9,adult; Current smoker Start: 12-13-2023 End: 12-13-2023 ambulatory OZ D BEJ Not Available Start: 12-12-2023 End: 12-12-2023 ambulatory OZ D BEJ Not Available Start: 12-02-2023 End: 12-02-2023 Patient encounter procedure DO Sandra Keita Work Phone: [facility]-Lab [facility] [place] Work Phone: Start: 12-02-2023 End: 12-02-2023 ambulatory DO Sandra A Keita Work Phone: [facility] Work Phone: Start: 11-29-2023 End: 11-29-2023 ambulatory OZ D BEJ Not Available Start: 11-26-2023 End: 11-26-2023 Patient encounter procedure DO Sandra Keita Work Phone: [facility]-Lab [facility] [place] Work Phone: Start: 11-26-2023 End: 11-26-2023 ambulatory DO Sandra A Keita Work Phone: [facility] Work Phone: Start: 11-26-2023 End: 01-07-2024 External Result Encounter Oz Kincaid MD Work Phone: [facility] External Department Unsolicited Start: 11-26-2023 End: 01-07-2024 External Result Encounter Oz Kincaid MD Work Phone: [facility] External Department Unsolicited Start: 11-18-2023 End: 11-18-2023 ambulatory DO Sandra A Keita Work Phone: [facility] Work Phone: Start: 11-18-2023 End: 11-18-2023 Patient encounter procedure DO Sandra [facility] Work Phone: [facility] Family Medicine [place] Work Phone: Start: 11-16-2023 Non-patient / Non-visit DO Millie jacob [facility] Work Phone: [facility] Pulmonary Disease Work Phone: Start: 11-15-2023 End: 11-15-2023 ambulatory DO Sandra A [facility] Work Phone: [facility] Work Phone: Start: 11-15-2023 End: 11-15-2023 Patient encounter procedure DO Sandra [facility] Work Phone: [facility]-Respiratory Therapy Work Phone: Start: 11-14-2023 End: 11-14-2023 ambulatory DO Sandra A Keita Work Phone: [facility] Work Phone: Start: 11-14-2023 End: 11-14-2023 Patient encounter procedure DO Sandra Keita Work Phone: [facility] Work Phone: Start: 11-13-2023 End: 11-13-2023 Office outpatient visit 25 minutes Jonas Ch MD Work Phone: [facility] Comment on above: Nonischemic cardiomy opathy (Multi) (Primary Dx); Typical atrial flutter (Multi); Hypercholesteremia; Primary hypertension; Current smoker; BMI 28.0-28.9,adult; High risk medication use Start: 11-13-2023 End: 11-13-2023 ambulatory [facility] Ambulatory Start: 11-13-2023 Non-patient / Non-visit DO Millie Keita Work Phone: [facility] Family Medicine [place] Work Phone: Start: 11-10-2023 End: 11-12-2023 Evaluation and management of inpatient DO Sandra Keita Work Phone: [facility] [place] [facility] Work Phone: Start: 11-05-2023 End: 11-05-2023 Admission to same day surgery center DO Sandra Keita Work Phone: [facility]-Electrodiagnostics Work Phone: Start: 11-05-2023 End: 11-05-2023 ambulatory DO Sandra Keita Work Phone: [facility] Work Phone: Start: 10-30-2023 End: 01-07-2024 External Result Encounter Oz Kincaid MD Work Phone: [facility] External Department Unsolicited Start: 10-30-2023 End: 01-07-2024 External Result Encounter Oz Kincaid MD Work Phone: [facility] External Department Unsolicited Start: 10-30-2023 End: 10-30-2023 ambulatory DO Sandra Keita Work Phone: [facility] Work Phone: Start: 10-30-2023 End: 10-30-2023 Patient encounter procedure DO Sandra Keita Work Phone: [facility]-XRay [place] Work Phone: Start: 10-07-2023 End: 10-07-2023 Office outpatient visit 25 minutes Jonas Ch MD Work Phone: [facility] Comment on above: Typical atrial flutt er (Multi); Nonischemic cardiomyopathy (Multi); Hypertension, unspecified type; Hypercholesteremia; Smoker; Type 2 diabetes mellitus with other specified complication, unspecified whether vermin exterminator insulin use (Multi); BMI 28.0-28.9,adult Start: 10-07-2023 End: 10-07-2023 ambulatory JONAS Sorensen [facility] Ambulatory Start: 09-25-2023 End: 09-25-2023 ambulatory SANDRA Fernandez [facility] Ambulatory Start: 09-17-2023 End: 09-17-2023 ambulatory DO Sandra A Keita Work Phone: [facility] Work Phone: Start: 09-17-2023 End: 09-17-2023 Patient encounter procedure DO Sandra Debbie Work Phone: [facility] [place] Work Phone: Start: 09-16-2023 Non-patient / Non-visit DO Millie jacob Debbie Work Phone: [facility] [place] Work Phone: Start: 09-14-2023 End: 09-14-2023 Non-patient / Non-visit DO Sandra Debbie Work Phone: [facility] Work Phone: Start: 09-13-2023 End: 09-14-2023 Evaluation and management of inpatient DO Sandra Debbie Work Phone: [facility] [place] [facility] Work Phone: Start: 09-12-2023 End: 09-12-2023 Patient encounter procedure DO Sandra Debbie Work Phone: [facility] Work Phone: Start: 09-09-2023 Non-patient / Non-visit DO Millie jacob Keita Work Phone: [facility] Family Medicine [place] Work Phone: Start: 09-05-2023 End: 09-05-2023 ambulatory DO Sandra A Keita Work Phone: [facility] Work Phone: Start: 09-05-2023 End: 09-05-2023 Patient encounter procedure DO Sandra Keita Work Phone: [facility]-Lab [facility] [place] Work Phone: Start: 07-25-2023 End: 07-25-2023 ambulatory DO Sandra A Keita Work Phone: [facility] Work Phone: Start: 07-25-2023 End: 07-25-2023 Patient encounter procedure DO Sandra Keita Work Phone: [facility]-CT [address] Work Phone: Start: 07-17-2023 End: 07-17-2023 ambulatory [facility] Work Phone: Start: 07-17-2023 End: 07-17-2023 Patient encounter procedure [facility] Vascular Surgery Work Phone: Start: 06-19-2023 End: 06-19-2023 ambulatory [facility] Work Phone: Start: 06-19-2023 End: 06-19-2023 Patient encounter procedure [facility] Family Medicine [place] Work Phone: Start: 06-12-2023 End: 06-12-2023 ambulatory [facility] Work Phone: Start: 06-12-2023 End: 06-12-2023 Patient encounter procedure [facility] Work Phone: Start: 06-10-2023 End: 06-10-2023 ambulatory Tondra Russell Other [employer] Other Start: 06-10-2023 Telephone encounter Tondra Russell [facility] Start: 05-21-2023 End: 05-21-2023 ambulatory Sandrarebecca Keita Other [employer] Other Start: 05-21-2023 Telephone encounter Sandra Keita [facility] Start: 04-30-2023 End: 04-30-2023 ambulatory Tondra Yvonne Other [employer] Other Start: 04-30-2023 Telephone encounter Tondra Russell [facility] Start: 04-11-2023 End: 04-11-2023 ambulatory Sandra Debbie Other [employer] Other Start: 04-11-2023 Telephone encounter Sandra Keita [facility] Start: 04-08-2023 End: 04-08-2023 ambulatory Sandrarebecca Keita Other [employer] Other Start: 04-08-2023 Telephone encounter Sandra Keita [facility] Start: 03-05-2023 End: 03-05-2023 ambulatory DO Jonas Yoder Work Phone: [facility] Work Phone: Start: 03-05-2023 End: 03-05-2023 Patient encounter procedure DO Jonas Yoder Work Phone: [facility]-Center for Breast Care Work Phone: Start: 03-04-2023 End: 03-04-2023 ambulatory Sandra Keita Other [employer] Other Start: 03-04-2023 Office outpatient vi sit 25 minutes Sandra Keita [facility] Family [facility] [place] Start: 01-28-2023 End: 01-28-2023 ambulatory Sandra Keita Other [employer] Other Start: 01-28-2023 Telephone encounter Sandra Keita [facility] [place] Start: 01-07-2023 Registered Recurring DO Beba Yoder Work Phone: [facility]-Diabetes Care Center Work Phone: Start: 01-07-2023 (DM) Diabetes Tondra Mapus [facility] Start: 01-07-2023 End: 01-07-2023 ambulatory Tondra Mapus Other [employer] Other Start: 01-02-2023 End: 01-02-2023 ambulatory Brayden Noble Other [employer] Other Start: 01-02-2023 Office outpatient vi sit 15 minutes Brayden Noble [facility] Gastroenterology Start: 12-28-2022 End: 12-28-2022 ambulatory Sandra Keita Other [employer] Other Start: 12-28-2022 Telephone encounter Sandra Keita [facility] [place] Start: 12-18-2022 End: 12-18-2022 ambulatory Reynaseda Diopr Other [employer] Other Start: 12-18-2022 Telephone encounter Reyna Diopr [facility] [place] Start: 12-10-2022 End: 12-10-2022 ambulatory Tondra Mapus Other [employer] Other Start: 12-10-2022 Telephone encounter Tondra Yvonne [facility] Start: 11-28-2022 End: 11-28-2022 ambulatory Sandra Keita Other [employer] Other Start: 11-28-2022 Patient encounter procedure Sandra Keita [facility] [place] Start: 11-27-2022 End: 11-27-2022 ambulatory Sandra Keita Other [employer] Other Start: 11-27-2022 Telephone encounter Sandra Keita [facility] [place] Start: 11-06-2022 End: 11-06-2022 ambulatory Sandra Keita Other [employer] Other Start: 11-06-2022 Telephone encounter Sandra Keita [facility] [place] Start: 09-27-2022 (DM) Diabetes Tondra Yvonne [facility] Start: 09-27-2022 End: 09-27-2022 ambulatory Tondra Yvonne Other [employer] Other Start: 09-10-2022 End: 09-10-2022 ambulatory Sandrarebecca Keita Other [employer] Other Start: 09-10-2022 Telephone encounter Sandrarebecca Keita [facility] Family Medicine [place] Start: 09-05-2022 Telephone encounter Sandra Keita [facility] Family Medicine [place] Start: 09-05-2022 End: 09-05-2022 ambulatory DO Sandra Rebecca Keita Work Phone: [facility] Work Phone: Start: 09-05-2022 End: 09-05-2022 Patient encounter procedure DO Sandra Keita Work Phone: [facility]-Center [facility] Work Phone: Start: 08-22-2022 Telephone encounter Sandra Keita [facility] [place] Start: 08-22-2022 End: 08-22-2022 ambulatory DO Sandra eKita Work Phone: [facility] Work Phone: Start: 08-22-2022 End: 08-22-2022 Patient encounter procedure DO Sandra Keita Work Phone: [facility] [address] Work Phone: Start: 08-09-2022 End: 08-09-2022 ambulatory Sandra Keita Other [employer] Other Start: 08-09-2022 Office outpatient vi sit 15 minutes Sandrarebecca Keita [facility] [place] Start: 08-06-2022 End: 08-06-2022 ambulatory Sandrajacob Keita Other [employer] Other Start: 08-06-2022 Telephone encounter Sandra Keita [facility] [place] Start: 07-10-2022 End: 07-10-2022 ambulatory Sandrajacob Keita Other [employer] Other Start: 07-10-2022 Telephone encounter Sandra Keita [facility] [place] Start: 07-04-2022 End: 07-04-2022 ambulatory Tolu Salinas Other [employer] Other Start: 07-04-2022 Telephone encounter Tolu Salinas [facility] [place] Start: 06-19-2022 End: 06-19-2022 ambulatory Tondra Yvonne Other [employer] Other Start: 06-19-2022 Telephone encounter Tona Leonardo [facility] Start: 06-18-2022 (DM) Diabetes Tondra Yvonne [facility] Start: 06-18-2022 End: 06-18-2022 ambulatory Tondra Mapus Other [employer] Other Start: 06-14-2022 End: 06-14-2022 ambulatory Tondra Mapus Other [employer] Other Start: 06-14-2022 Telephone encounter Tondra Leonardous [facility] Start: 06-08-2022 End: 06-08-2022 ambulatory Tondra Mapus Other [employer] Other Start: 06-08-2022 Telephone encounter Tondra Leonardous [facility] Start: 06-04-2022 End: 06-04-2022 ambulatory Sandra Keita Other [employer] Other Start: 06-04-2022 Telephone encounter Sandrajacob Keita [facility] Start: 05-30-2022 End: 05-30-2022 ambulatory Sandra Keita Other [employer] Other Start: 05-30-2022 Telephone encounter Sandra Keita [facility] Start: 05-24-2022 End: 05-24-2022 ambulatory Sandra Keita Other [employer] Other Start: 05-24-2022 Telephone encounter Sandra Keita [facility] Start: 04-03-2022 End: 04-03-2022 ambulatory Sandra Keita Other [employer] Other Start: 04-03-2022 Telephone encounter Sandrarebecca Keita [facility] Start: 02-14-2022 End: 02-14-2022 ambulatory Sandra Keita Other [employer] Other Start: 02-14-2022 Telephone encounter Sandra Debbie [facility] [place] Start: 01-09-2022 (DM) Diabetes Tondra Leonardous [facility] Start: 01-09-2022 End: 01-09-2022 ambulatory Tondra Mapus Other [employer] Other Start: 12-21-2021 ambulatory Teresa Strong Facility:[facility] [place] Start: 12-18-2021 ambulatory Lanshwethae A [place] Faci lity:[facility] [place] Start: 12-17-2021 End: 12-17-2021 Emergency department patient visit DO Tray Randle [facility] Start: 12-13-2021 ambulatory Francesca Tom Facili ty:ENRIQUE [facility] Start: 12-12-2021 End: 12-13-2021 ambulatory ARLEEN HAILEE Facility:[id number] Start: 12-11-2021 End: 12-12-2021 ambulatory ARLEEN HAILEE Facility:[id number] Start: 12-09-2021 End: 12-13-2021 Evaluation and management of inpatient DO Tray Randle [facility] Start: 10-12-2021 End: 10-12-2021 ambulatory Crispin Looney Other [employer] Other Start: 10-12-2021 Patient encounter procedure Crispin Looney [facility] [place] Start: 10-12-2021 Telephone encounter Crispin Mejias [facility] [place] Start: 09-13-2021 End: 09-13-2021 ambulatory Crispin Looney Other [employer] Other Start: 09-13-2021 Telephone encounter Crispin Mejias [facility] [place] Start: 08-28-2021 End: 08-28-2021 ambulatory Tondra Mapus Other [employer] Other Start: 08-28-2021 Telephone encounter Tondra Mapus [facility] Start: 07-10-2021 (DM) Diabetes Tondra Mapus [facility] Start: 07-10-2021 End: 07-10-2021 ambulatory Tondra Mapus Other [employer] Other Start: 07-03-2021 End: 07-03-2021 ambulatory Ruben Hahn Other [employer] Other Start: 07-03-2021 Office outpatient ne w 30 minutes Ruben Avendañoracquel [facility] Start: 06-28-2021 End: 06-28-2021 ambulatory Crispin Aayush Other [employer] Other Start: 06-28-2021 Telephone encounter Crispin Looney [facility] [place] Start: 05-25-2021 End: 05-25-2021 ambulatory Crispin Looney Other [employer] Other Start: 05-25-2021 Telephone encounter Crispin Looney [facility] [place] Start: 05-08-2021 End: 05-08-2021 ambulatory Crispin Looney Other [employer] Other Start: 05-08-2021 Office outpatient ne w 45 minutes Crispin Looney [facility] [place] Start: 04-11-2021 End: 04-11-2021 ambulatory Tondra Mapus Other [employer] Other Start: 04-11-2021 Telephone encounter Tondra Mapus [facility] Start: 04-03-2021 End: 04-03-2021 ambulatory Tray Nava Other [employer] Other Start: 04-03-2021 Office outpatient vi sit 15 minutes Tray Nava [facility] Start: 03-27-2021 (DM) Diabetes Juliodrrebecca Russell [facility] Start: 03-27-2021 End: 03-27-2021 ambulatory Angelique Russell Other [employer] Other Start: 02-27-2021 End: 02-27-2021 ambulatory Tray Nava Other [employer] Other Start: 02-27-2021 Office outpatient vi sit 15 minutes Tray Nava [facility] Start: 05-16-2017 End: 05-16-2017 Ambulatory MATTHEW VOSS Facility:UNKNOWN Start: 01-25-2017 End: 01-26-2017 Ambulatory ELOISA SUKHWINDER Facility:H1 Procedures Date Procedure Procedure Detail Performing Clinician Start: 11-16-2024 Radex foot complete minimum 3 views Karl Fritz DPM Work Phone: Start: 11-16-2024 SUPERFICIAL WOUND CULTURE ([facility]) Razia Fritz DPM Work Phone: Start: 09-10-2024 Esophagogastroduodenoscopy Sandrajacob Keita DO Work Phone: Start: 07-06-2024 Urine culture Sandra Debbie DO Work Phone: Start: 06-26-2024 Complete blood count with white cell differential, automated Nataliya Jane NP Other Phone: Start: 06-26-2024 Ecg routine ecg w/least 12 lds w/i&r Thuan Wise MD Work Phone: Start: 05-25-2024 MRI of head Sandra Debbie DO Work Phone: Start: 04-29-2024 Urine culture Sandra Debbie DO Work Phone: Start: 04-28-2024 CT angiography of head Sandra Debbie DO Work Phone: Start: 04-28-2024 CT angiography of neck vessels Sandra Sushma hns DO Work Phone: Start: 04-28-2024 CT of head without contrast Sandra Keita DO Work Phone: Start: 04-28-2024 Plain chest X-ray Sandra Keita DO Work Phone: Start: 04-28-2024 Respiratory Panel (PCR) Sandar Keita DO Work Phone: Start: 04-14-2024 Complete blood count with white cell differential, automated Nataliya Best Lucinda REAL TIME OPERATOR Work Phone: Start: 04-14-2024 Comprehensive metabolic panel Nataliya Best Child REAL TIME OPERATOR Work Phone: Start: 04-14-2024 PATHOLOGIST SLIDE REVIEW ([facility]) Nataliya Best Lillian ward REAL TIME OPERATOR Work Phone: Start: 03-25-2024 Ecg routine ecg w/least 12 lds w/i&r Thuan Wise MD Work Phone: Start: 01-07-2024 Aerobic microbial culture DO Sandra maza Work Phone: Start: 01-06-2024 Duplex scan of lower limb veins DO Magdalena Keita Work Phone: Start: 12-17-2023 MR lumbar spine wo con DO Sandra Keita Work Phone: Start: 12-17-2023 XR pre/post mri xray DO Sandra Keita Work Phone: Start: 12-16-2023 Ecg routine ecg w/least 12 lds w/i&r Thuan Wise MD Work Phone: Start: 11-26-2023 ANCA PROFILE (ANCA+MPO+PR3) Oz Snyder Work Phone: Start: 11-26-2023 ANTI-CENTROMERE B ANTIBODIES Oz Kincaid MD Work Phone: Start: 11-26-2023 ANTI-DSDNA(DBL)AB Oz Kincaid MD Work Phone: Start: 11-26-2023 ANTI-RENTAL MANAGER Oz Kincaid MD Work Phone: Start: 11-26-2023 Antinuclear antibodies beatrice Oz Kincaid MD Work Phone: Start: 11-26-2023 ANTIRIBOSOMAL P ANTIBODIES Oz Kincaid MD Work Phone: Start: 11-26-2023 HISTONE ANTIBODIES Oz Kincaid MD Work Phone: Start: 11-26-2023 Immunoassay analyte qual/semiqual multiple step Oz Kincaid MD Work Phone: Start: 11-26-2023 SUSHMA-1 ANTIBODY Oz Kincaid MD Work Phone: Start: 11-26-2023 LACTATE AND PYRUVATE Oz Kincaid MD Work Phone: Start: 11-26-2023 SCLERODERMA 70 ANTIBODIES Oz Kincaid MD Work Phone: Start: 11-26-2023 SJOGRENS ANTI-SSA/SSB Oz Kincaid MD Work Phone: Start: 11-26-2023 SRP AUTOANTIBODIES Oz Kincaid MD Work Phone: Start: 11-13-2023 Ecg routine ecg w/least 12 lds w/i&r Jonas Ch MD Work Phone: Start: 11-11-2023 MRI of head DO Sandrarebecca Keita Work Phone: Start: 11-10-2023 Bacteria identified in Urine by Culture DO Sandrarebecca Keita Work Phone: Start: 11-10-2023 Urine culture DO Sandra Keita Work Phone: Start: 11-10-2023 CT of head without contrast DO Sandra terrazas Work Phone: Start: 10-30-2023 LACTATE AND PYRUVATE Oz Kincaid MD Work Phone: Start: 10-30-2023 X-ray of lumbar spine, six views including bending views DO Sandra Keita [employer] Phone: Start: 10-30-2023 Thyrotropin [Units/volume] in Serum or Plasma Jonas Ch MD Work Phone: Start: 09-12-2023 Plain chest X-ray DO Sandra Keita [employer] Phone: Start: 07-25-2023 CT of lungs DO Sandra Keita [employer] Phone: Start: 03-05-2023 Dual energy X-ray absorptiometry DO Kevin Yoder Work Phone: Start: 09-05-2022 Screening mammography of bilateral breasts DO Sandra Keita [employer] Phone: Start: 08-22-2022 CT of lungs DO Sandra Keita [employer] Phone: Start: 12-17-2021 Computed tomography of abdomen and pelvis with contrast DO Tray Randle Start: 12-12-2021 Diagnostic laparoscopy DO Tray hernandez Start: 12-09-2021 US scan of gallbladder DO Tray hernandez Start: 12-09-2021 CT of abdomen and pelvis without contrast DO Tray Randle Start: 06-10-2020 Mammography Jonas Ch MD Work Phone: Start: 12-17-2018 Antibody screen Comment on above: Performed By: #### [id number] #### [place] [address] Blood culture for ba cteria, including anaerobic screen DO Tray Randle SARS Antigen (LFIA) DO Sunni Randle Urine culture DO Tray yates Urine culture DO Tray yates Plan of Treatment Date Care Activity Detail Author Start: 01-19-2025 End: 01-19-2025 Patient encounter procedure JUMA Velázquez Start: 12-30-2024 End: 12-30-2024 Patient encounter procedure 12/30/2024 1:40 PM EDT Office Visit [address] [phone] Thuan Wise MD [address] [facility] [address] [place] [address] [facility] Start: 12-18-2024 End: 12-18-2024 Patient encounter procedure [facility] Start: 12-11-2024 End: 12-11-2024 Patient encounter procedure [facility] Start: 11-30-2024 End: 11-30-2024 Patient encounter procedure 11/30/2024 1:15 PM EDT Office Visit [facility] [place] [facility] [address] [place] [phone] Karl Fritz DPM [address] [place] [address] [facility] [place] [facility] Start: 11-23-2024 End: 11-23-2024 Patient encounter procedure [facility] Comment on above: Arrived Start: 11-16-2024 Superficial Wound Culture Superficial Wound Culture [facility] Start: 10-29-2024 Thyroid stimulating hormone measurement TSH Level [facility] Start: 10-28-2024 End: 10-28-2024 Patient encounter procedure 10/28/2024 4:00 PM EDT Office Visit [facility] [address] [place] [phone] Karl Fritz DPM [address] [place] [address] [facility] Start: 10-23-2024 End: 10-23-2024 Patient encounter procedure 10/23/2024 12:00 PM EDT Procedure Visit [facility] [address] [place] [phone] Oz Kincaid MD [address] [facility] [address] [id number] [facility] Start: 10-20-2024 End: 10-20-2024 Patient encounter procedure 10/20/2024 10:45 AM EDT Office Visit [facility] [address] [place] [phone] Karl Fritz DPM [address] [place] [address] Arrived [facility] Comment on above: Arrived Start: 10-06-2024 End: 10-06-2025 EMG AND NERVE CONDUCTION STUDY EMG AND NERVE CONDUCTION STUDY Neurology Routine Numbness Leg pain, left Leg pain, right Bilateral leg weakness Expected: 10/06/2024 (Approximate), Expires: 10/06/2025 [facility] Work Phone: Comment on above: Expected: 10/06/2024 (Approximate), Expi res: 10/06/2025 Start: 10-06-2024 End: 10-06-2024 Patient encounter procedure [facility] Comment on above: Arrived Start: 09-10-2024 End: 09-10-2024 [facility] Start: 09-07-2024 Patient referral [facility] Work Phone: Start: 08-25-2024 Patient referral [facility] Work Phone: Start: 07-22-2024 Ankle brachial pressure index [facility] Start: 07-06-2024 Urine culture [facility] Start: 07-06-2024 Bacteria identified in Urine by Culture Urine Culture [facility] Start: 06-26-2024 [facility] Start: 05-26-2024 End: 05-26-2024 Patient encounter procedure 05/26/2024 2:40 PM EST Office Visit [place] [id number] [place] [phone] Thuan Wise MD [address] [place] [address] [facility] Start: 05-07-2024 End: 05-07-2024 Patient encounter procedure 05/07/2024 2:15 PM EST Office Visit [facility] [address] [place] [phone] Karl Fritz, DPM [address] [place] [address] [facility] Start: 04-30-2024 [facility] Start: 04-29-2024 End: 04-29-2024 Urine culture [facility] Start: 04-29-2024 Referral to neurologist [facility] Start: 04-29-2024 [facility] Start: 04-28-2024 Hospital admission [facility] Start: 04-28-2024 [facility] Start: 04-07-2024 End: 04-07-2024 Patient encounter procedure 04/07/2024 3:30 PM EST Office Visit [facility] [address] [place] [phone] Karl Fritz, DPM [address] [place] [address] [facility] Start: 04-07-2024 End: 04-07-2024 Patient encounter procedure [facility] Comment on above: Arrived Start: 03-27-2024 End: 03-27-2024 Patient encounter procedure 03/27/2024 10:10 AM EST Office Visit [facility] [address] [place] [address] Thuan Wise MD [address] [place] [address] [facility] Start: 03-24-2024 End: 03-24-2024 Patient encounter procedure 03/24/2024 1:30 PM EST Office Visit [facility] [address] [place] [phone] Karl Fritz, DPM [address] [place] [address] [facility] Start: 03-10-2024 End: 03-10-2024 Patient encounter procedure 03/10/2024 1:30 PM EST Office Visit [facility] [address] [place] [phone] Karl Fritz, DPM [address] [place] [address] [facility] Start: 02-25-2024 End: 02-25-2024 Patient encounter procedure [facility] Comment on above: Arrived Start: 02-10-2024 End: 02-10-2024 Patient encounter procedure [facility] Comment on above: Arrived Start: 01-28-2024 End: 01-28-2024 Patient encounter procedure 01/28/2024 1:30 PM EDT Office Visit [facility] [address] [place] [phone] Oz Kincaid MD [address] [facility] [place] [phone] [facility] Start: 01-27-2024 End: 01-27-2024 Patient encounter procedure [facility] Comment on above: Arrived Start: 01-21-2024 End: 01-21-2024 Patient encounter procedure 01/21/2024 11:00 AM EDT Office Visit [facility] [address] [place] [phone] Karl Fritz, DPM [address] [place] [address] Arrived [facility] Comment on above: Arrived Start: 01-07-2024 Superficial Wound Culture Superficial Wound Culture [facility] Start: 01-07-2024 End: 01-06-2025 SUPERFICIAL WOUND CULTURE ([facility]) SUPERFICIAL WOUND CULTURE ([facility]) Microbiology Routine Ulcer of right foot, limited to breakdown of skin (CMS/HCC) Cellulitis of right foot Expected: 01/07/2024 (Approximate), Expires: 01/06/2025 [facility] Work Phone: Comment on above: Expected: 01/07/2024 (Approximate), Expi res: 01/06/2025 Start: 01-07-2024 End: 01-07-2024 Patient encounter procedure 01/07/2024 1:15 PM EDT Office Visit [facility] [address] [place] [phone] Oz Kincaid MD [address] [facility] [place] [phone] [facility] Start: 01-07-2024 End: 01-07-2024 Patient encounter procedure 01/07/2024 9:45 AM EDT Office Visit [facility] [address] [place] [address] Karl Fritz DPM [address] [place] [address] Arrived [facility] Comment on above: Arrived Start: 01-06-2024 Duplex scan of lower limb veins US venous duplex LE BI [facility] Start: 01-06-2024 US Lower extremity vein - bilateral [facility] Start: 12-29-2023 COVID-19 Vaccine ( season) COVID-19 Vaccine ( season) [facility] Start: 12-29-2023 Influenza vaccination [facility] Start: 12-02-2023 Blood zinc measurement [facility] Start: 12-02-2023 End: 12-02-2023 [facility] Start: 11-26-2023 Antibody to Scl-70 measurement [facility] Start: 11-26-2023 RENTAL MANAGER antibody measurement [facility] Start: 11-26-2023 [facility] Start: 11-13-2023 End: 11-12-2024 Aspartate aminotransferase [Enzymatic activity/volume] in Serum or Plasma by With P-5'-P Aspartate Aminotransferase Lab Routine High risk medication use Expected: 11/13/2023 (Approximate), Expires: 11/12/2024 [facility] Service Area Work Phone: Comment on above: Expected: 11/13/2023 (Approximate), Expi res: 11/12/2024 Start: 11-13-2023 End: 11-12-2024 Basic metabolic 2000 panel - Serum or Plasma Basic Metabolic Panel Lab Routine High risk medication use Expected: 11/13/2023 (Approximate), Expires: 11/12/2024 [facility] Work Phone: Comment on above: Expected: 11/13/2023 (Approximate), Expi res: 11/12/2024 Start: 11-13-2023 End: 11-12-2024 Complete Pulmonary Function Test (Spirometry/DLCO/Lung Volumes) Complete Pulmonary Function Test (Spirometry/DLCO/Lung Volumes) PFT Routine Typical atrial flutter (Multi) Expected: 11/13/2023 (Approximate), Expires: 11/12/2024 [facility] Work Phone: Comment on above: Expected: 11/13/2023 (Approximate), Expi res: 11/12/2024 Start: 11-13-2023 End: 11-13-2023 Patient encounter procedure 11/13/2023 2:00 PM EDT Office Visit [facility] [address] [facility] [address] [place] [address] Jonas Ch MD [address] [facility] [address] [place] [address] [facility] Start: 11-13-2023 End: 11-12-2024 Thyrotropin [Units/volume] in Serum or Plasma Thyroid Stimulating Hormone Lab Routine High risk medication use Expected: 11/13/2023 (Approximate), Expires: 11/12/2024 [facility] Work Phone: Comment on above: Expected: 11/13/2023 (Approximate), Expi res: 11/12/2024 Start: 11-13-2023 End: 11-12-2024 XR Chest 2 Views XR chest 2 views Imaging Routine Typical atrial flutter (Multi) Expected: 11/13/2023 (Approximate), Expires: 11/12/2024 [facility] Work Phone: Comment on above: Expected: 11/13/2023 (Approximate), Expi res: 11/12/2024 Start: 11-12-2023 [facility] Start: 11-11-2023 [facility] Start: 11-10-2023 Bacteria identified in Urine by Culture [facility] Start: 11-10-2023 Referral to neurologist [facility] Start: 11-10-2023 Hospital admission [facility] Start: 11-10-2023 Physical therapy procedure [facility] Start: 11-10-2023 Referral to occupational therapist [facility] Start: 11-10-2023 [facility] Start: 11-10-2023 [facility] Start: 11-05-2023 [facility] Start: 10-30-2023 Blood zinc measurement [facility] Start: 10-30-2023 [facility] Start: 10-28-2023 End: 10-06-2025 Cardioversion External Cardioversion External Cardiac Services Routine Typical atrial flutter (Multi) Expected: 10/28/2023 (Approximate), Expires: 10/06/2025 [facility] Service Area Work Phone: Comment on above: Expected: 10/28/2023 (Approximate), Expi res: 10/06/2025 Start: 09-14-2023 [facility] Start: 09-12-2023 Referral to retail account executive [facility] Start: 09-12-2023 Hospital admission [facility] Start: 12-28-2022 COVID-19 Vaccine ( season) COVID-19 Vaccine ( season) [facility] Start: 12-17-2021 Computed tomography of abdomen and pelvis with contrast CT abdomen pelvis w con [facility] Start: 12-17-2021 End: 12-17-2021 Emergency department patient visit Departed Emergency [facility] Start: 12-13-2021 [facility] Work Phone: Start: 12-11-2021 Referral to urologist [facility] Work Phone: Start: 12-11-2021 Referral to general surgeon [facility] Work Phone: Start: 12-09-2021 Hospital admission [facility] Work Phone: Start: 06-10-2021 Screening for malignant neoplasm of breast Mammogram [facility] Start: 2017 RSV High Risk: (Elderly (60+) or Population) (1 - Risk 60-74 years 1-dose series) RSV High Risk: (Elderly (60+) or Population) (1 - Risk 60-74 years 1-dose series) [facility] Start: 2017 RSV patients and/or patients aged 60+ years (1 - 1-dose 60+ series) RSV patients and/or patients aged 60+ years (1 - 1-dose 60+ series) [facility] Start: 11-26-2007 Zoster Vaccines (1 of 2) Zoster Vaccines (1 of 2) [facility] Start: 11-26-1979 DTaP/Tdap/Td Vaccines (1 - Tdap) DTaP/Tdap/Td Vaccines (1 - Tdap) [facility] Start: 1978 Screening for malignant neoplasm of cervix [facility] Start: 1976 Pneumococcal vaccination Pneumococcal Vaccine (1 of 2 - PCV) [facility] Start: 1976 Urine screening for protein Diabetes: Urine Protein Screening [facility] Start: 11-26-1975 Hepatitis C screening Hepatitis C Screening [facility] Start: 11-26-1967 Diabetic foot examination Diabetes: Foot Exam [facility] Start: 11-26-1967 Glaucoma screening Diabetes: Retinopathy Screening [facility] Start: 11-26-1963 Pneumococcal Vaccine: 65+ Years (1 of 2 - PCV) Pneumococcal Vaccine: 65+ Years (1 of 2 - PCV) [facility] Start: 1958 MMR Vaccines (1 of 1 - Standard series) MMR Vaccines (1 of 1 - Standard series) [facility] Start: 1957 Annual wellness visit [facility] Start: 1957 Hemoglobin A1c measurement Diabetes: Hemoglobin A1C [facility] Start: 1957 Lipid panel Lipid Panel [facility] Start: 1957 Medicare Annual Wellness Visit Medicare Annual Wellness Visit (AWV) [facility] Start: 1957 Screening for malignant neoplasm of colon [facility] Start: 1957 Screening for osteoporosis Bone Density Scan [facility] Start: 1957 Thyroid stimulating hormone measurement TSH Level [facility] Start: 1957 Urine screening for protein Diabetes: Urine Protein Screening [facility] 24 hour urine measurement [facility] Albumin [Mass/volume ] in Serum or Plasma [facility] Albumin/Globulin ratio [facility] Aldolase measurement [facility] Angiotensin converti ng enzyme [Enzymatic activity/volume] in Serum or Plasma [facility] Antibody measurement [facility] Arsenic measurement [facility] Bacteria identified in Unspecified specimen by Aerobe culture [facility] Bacteria identified in Unspecified specimen by Aerobe culture [facility] Borrelia burgdorferi Ab [Interpretation] in Serum [facility] Borrelia burgdorferi IgG Ab [Presence] in Serum or Plasma by Immunoassay [facility] Borrelia burgdorferi IgG+IgM Ab [Presence] in Serum by Immunoassay [facility] Borrelia burgdorferi IgM Ab [Presence] in Serum or Plasma by Immunoassay [facility] Centromere protein B Ab [Units/volume] in Serum [facility] Ceruloplasmin [Mass/ volume] in Serum or Plasma [facility] Ceruloplasmin [Mass/ volume] in Serum or Plasma [facility] Complement C3 [Mass/ volume] in Serum or Plasma [facility] Complement C4 [Mass/ volume] in Serum or Plasma [facility] Comprehensive metabo lic 1999 panel - Serum or Plasma [facility] Comprehensive metabo lic 1999 panel - Serum or Plasma [facility] Comprehensive metabo lic 1999 panel - Serum or Plasma [facility] Copper measurement [facility] Cryoglobulin [Presen ce] in Serum [facility] Electrophoresis: [id number] [facility] Electrophoresis: [id number] [facility] Electrophoresis: beta-globulin [facility] Electrophoresis: gaby ma globulin [facility] FLOWCYTOMETRY NEOGENOMIC FLOWCYT OMETRY NEOGENOMIC Lab Routine 06/26/2024 10:44 AM [facility] Work Phone: Globulin [Mass/volum e] in Serum [facility] Glucose measurement estimated from glycated hemoglobin [facility] Hepatitis A virus an tibody, IgM type [facility] Hepatitis B core ant ibody measurement, IgM type [facility] Hepatitis B virus razo rface Ag [Presence] in Serum or Plasma by Immunoassay [facility] Hepatitis C virus Ig G Ab [Presence] in Serum or Plasma by Immunoassay [facility] Hepatitis C virus RN A [log units/volume] (viral load) in Serum or Plasma by TEJINDER with probe detection [facility] Hepatitis C virus RN A [Units/volume] (viral load) in Serum or Plasma by TEJINDER with probe detection [facility] Histone IgG Ab [Units/volume] in Serum by Immunoassay [facility] HIV 1+2 Ab+HIV1 p24 Ag [Presence] in Serum or Plasma by Immunoassay [facility] Homocysteine [Moles/ volume] in Serum or Plasma [facility] Homogenous nuclear A b pattern [Titer] in Serum [facility] Homogenous nuclear A b pattern [Titer] in Serum [facility] IgA [Mass/volume] in Serum or Plasma [facility] IgG [Mass/volume] in Serum or Plasma [facility] IgM [Mass/volume] in Serum or Plasma [facility] Immunofixation for Urine Fir elands [facility] Sushma-1 extractable nuc lear Ab [Units/volume] in Serum [facility] Lead [Presence] in Blood [facility] Lutropin [Units/volu me] in Serum or Plasma [facility] Measurement of monoc lonal protein concentration [facility] Mercury [Mass/volume ] in Blood [facility] Methylmalonate [Moles/volume] in Serum or Plasma [facility] MG Breast - bilatera l Screening [facility] Mitochondria M2 IgG Ab [Units/volume] in Serum [facility] MR Cervical spine WO contrast [facility] MR Thoracic spine [facility] Myeloperoxidase Ab [Units/volume] in Serum by Immunoassay [facility] Neutrophil cytoplasm ic Ab.classic [Titer] in Serum by Immunofluorescence [facility] Nuclear Ab [Titer] in Serum [facility] Nuclear Ab [Titer] in Serum [facility] P-ANCA measurement [facility] Patient Education [facility] Work Phone: Patient referral [facility] Work Phone: Porphobilinogen [Mass/volume] in Urine [facility] Protein [Mass/volume ] in Serum or Plasma [facility] Protein [Mass/volume ] in Urine [facility] Proteinase 3 Ab [Units/volume] in Serum by Immunoassay [facility] Pyridoxine [Mass/vol ume] in Serum or Plasma [facility] Reagin Ab [Presence] in Serum by RPR [facility] Rheumatoid factor [Units/volume] in Serum or Plasma [facility] Ribosomal P Ab [Units/volume] in Serum [facility] Serum immunofixation [facility] Sjogrens syndrome-A extractable nuclear Ab [Units/volume] in Serum [facility] Sjogrens syndrome-B extractable nuclear Ab [Units/volume] in Serum [facility] Fritz extractable nu clear Ab [Units/volume] in Serum [facility] SUPERFICIAL WOUND CU LTURE ([facility]) [facility] Work Phone: Comment on above: Ordered: 11/16/2024 Thallium [Mass/volum e] in Serum or Plasma [facility] West Nile virus IgG Ab [Presence] in Serum by Immunoassay [facility] [place] Nile virus IgM Ab [Presence] in Serum by Immunoassay [facility] Immunizations Immunization Date Immunization Notes Care Provider Radha pruitt 04-02-2002 measles, mumps and rubella virus vaccine Sandra Keita Other [facility] NEGATED: Highlighted row has not occurred!03-04-2023 Flu Shot - Documentation Purposes Only Sandra Keita Other [employer] Other NEGATED: Highlighted row has not occurred!04-16-2022 influenza, seasonal, injectable Patient Objection Sandra Keita Other [facility] Payers Date Payer Category Payer Medicare [id number] 2023 Self-pay [id number] 2023 Medicare [id number] 2023 Dual Eligibility Medicare/Medicaid Organization [employer] [id number] 2023 Private Health Insurance [facility] [employer] [id number] 2023-Present [address] [address] [place] [address] [id number] .[id number] 2022 Medicare [id number] 2.16.840.1.279654.19 2022 Medicare [id number]. 1.13.693.2 .[id number] 2022 Medicare (Managed Care) [facility] [id number] 2022 Private Health Insurance [id number] 2021 Medicaid [id number] [id number] .[id number] 2021 Blue Cross Blue [facility] [id number] 2.16840.1.890057.19 2017 Unknown [id number] 1959 Medicaid [id number] 1957 Unknown [id number] 2.16.840.1.186942.3.579.2 .72 1957 Unknown [id number] 2.16840.1.604448.3.579.2 .727 1957 Unknown [id number] 2.16840.1.710262.3.579.2 .1957 Unknown [id number] 2.16.840.1.770866.3.579.2 .727 1957 Unknown [id number] 2.16.840.1.457625.3.579.2 .727 1957 Unknown [id number] 2.16.840.1.901096.3.579.2 .1244 1957 Unknown [id number] 2.16.840.1.862989.3.579.2 .124 1957 Unknown [id number] 2.16.840.1.165608.3.579.2 .1243 1957 Unknown [id number] 2.16.840.1.888766.3.579.2 .1243 1957 Unknown [id number] 2.16.840.1.003757.3.579.2 .1243 1957 Unknown [id number] 2.16.840.1.603856.3.579.2 .1243 1957 Unknown [id number] 2.16.840.1.191238.3.579.2 .1243 1957 Unknown [id number] 2.16.840.1.613170.3.579.2 .196 1957 Unknown [id number] 2.16.840.1.867105.3.579.2 .196 1957 Unknown [id number] 2.16.840.1.370991.3.579.2 .1258 1957 Unknown [id number] 2.16.840.1.804534.3.579.2 .1258 1957 Unknown [id number] 2.16.840.1.175848.3.579.2 .1258 1957 Unknown [id number] 2.16.840.1.187538.3.579.2 .1258 1957 Unknown [id number] 2.16.840.1.803130.3.579.2 .1258 1957 Unknown [id number] 2.16.840.1.568481.3.579.2 .1258 1957 Unknown [id number] 2.16.840.1.870861.3.579.2 .1258 1957 Unknown [id number] 2.16.840.1.529780.3.579.2 .1258 1957 Unknown [id number] 2.16.840.1.281304.3.579.2 .1258 1957 Unknown [id number] 2.16.840.1.458351.3.579.2 .1258 1957 Unknown [id number] 2.16.840.1.604531.3.579.2 .1258 1957 Unknown [id number] 2.16840.1.909290.3.579.2 .1258 1957 Unknown [id number] 2.16.840.1.621501.3.579.2 .1258 1957 Unknown [id number] 2.16.840.1.547139.3.579.2 .1258 1957 Unknown [id number] 2.16.840.1.546585.3.579.2 .1258 1957 Unknown [id number] 2.16840.1.651379.3.579.2 .1258 1957 Unknown [id number] 2.16.840.1.994445.3.579.2 .1259 Medicare [id number] 2.16.840.1.314978.19 Unknown [id number] 2.16.840.1.805830.3.579.2 .531 Unknown [id number] 2.16.840.1.767620.3.579.2 .531 Unknown [id number] 2.16.840.1.455227.3.579.2 .531 Unknown [id number] 2.16.840.1.312114.3.579.2 .531 Unknown [id number] 2.16.840.1.592989.3.579.2 .531 Unknown [id number] 2.16.840.1.273653.3.579.2 .531 Unknown [id number] 2.16.840.1.301107.3.579.2 .531 Unknown [id number] 2.16.840.1.524808.3.579.2 .531 Unknown [id number] 2.16.840.1.952886.3.579.2 .531 Unknown [id number] 2.16.840.1.679965.3.579.2 .531 Unknown [id number] 2.16.840.1.693127.3.579.2 .531 Unknown [id number] 2.16.840.1.794588.3.579.2 .531 Unknown [id number] 2.16.840.1.717429.3.579.2 .531 Unknown [id number] 2.16.840.1.046611.3.579.2 .531 Unknown [id number] 2.16.840.1.558984.3.579.2 .531 Social History Date Type Detail Facility Unknown if ever smoked [facility] Other Start: 10-07-2023 End: 11-23-2024 Sex Assigned At [facility] Other Start: 12-17-2021 End: 09-10-2024 Tobacco smoking status ALIS Smoker (finding) [facility] Start: 1955 Sex Assigned At Female F [facility] Start: 04-29-1975 End: 10-07-2023 Tobacco smoking status ALIS Smokes tobacco daily [facility] Start: 04-29-1975 History of tobacco use Cigarette Smo ker [facility] Work Phone: Start: 10-07-2023 Tobacco use and exposure Smokeless tobacco non-user [facility] Work Phone: Start: 10-07-2023 End: 11-23-2024 Alcoholic beverage intake Lifetime non-drinker (finding) [facility] Work Phone: Start: 10-07-2023 End: 11-23-2024 History of Social function [facility] Work Phone: Start: 1955 Sex assigned at Not on file [facility] Work Phone: Start: 09-27-2023 End: 06-26-2024 Exposure to SARS-CoV-2 (event) Not sure [facility] Start: 01-29-2023 Tobacco use and exposure User of smokeless tobacco [facility] Start: 01-29-2023 Tobacco Comment Smokes 11-20 c igs per day [facility] Start: 01-09-2023 Alcohol Comment caffeine intak e: occasional [facility] Start: 04-29-2024 End: 10-01-2024 Sex Female (finding) [facility] Medical Equipment Procedure Code Equipment Code Equipment Origin al Text Equipment Identifier Dates Start: 07-10-2018 Pen Needle, Diab etic (Novofine 32) 32 gauge x 1/4 needle Start: 08-20-2024 Pen Needle, Diab etic (Novofine 32) 32 gauge x 1/4 needle Start: 08-20-2024 Pen Needle, Diab etic (Novofine 32) 32 gauge x 1/4 needle Start: 08-20-2024 Pen Needle, Diab etic (Novofine 32) 32 gauge x 1/4 needle Start: 08-20-2024 Pen Needle, Diab etic (Novofine 32) 32 gauge x 1/4 needle Start: 08-20-2024 Pen Needle, Diab etic (Novofine 32) 32 gauge x 1/4 needle Start: 08-20-2024 Goals Date Patient Goal Desired Activity /State Functional Status Date Assessment Result Facility 04-30-2024 Functional status Patient at Baseline [facility] Work Phone: 11-12-2023 Functional status Patient at Baseline [facility] Work Phone: 09-14-2023 Functional status Patient at Baseline [facility] Work Phone: 12-13-2021 Functional status Patient at Baseline [facility] Work Phone: Mental Status Date Assessment Result Facility 04-30-2024 Cognitive function Cognitive Sta tus Patient at Baseline [facility] Work Phone: 11-12-2023 Cognitive function Cognitive Sta tus Patient at Baseline [facility] Work Phone: 09-14-2023 Cognitive function Cognitive Sta tus Patient at Baseline [facility] Work Phone: 12-13-2021 Cognitive function Cognitive Sta tus Patient at Baseline [facility] Work Phone: Clinical Notes 02-27-2021 to 11-23-2024 Karl Fritz DPM - 11/23/2024 2:45 PM EDTCreema Fritz DPM - 11/16/2024 4:00 PM EDTTelephone Encounter - Cali Duque - 10/21/2024 2:44 PM EDJake Kincaid MD - 10/06/2024 1:45 PM EDT Note Date & Type Note Facility 11-23-2024 History of Presen t illness Narrative Images from the original note were not included. HPI: Patient presents today complaining of an ulcer on the bottom of the right great toe. Patient has pain with walking and standing due to this lesion. Patient's daughter states that she continue to have problems with a recurrent wound to the right foot along the great toe. She does not usually do a lot of offloading. Patient's diabetes is under okay control. They would like to discuss possibly doing surgery to correct the toe deformity so that [...] site. 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 I did excise nonviable tissue, callus, skin, and slough of ulceration site. This was performed with a tissue nipper [...] underwater until ulcer is completely healed. Patient should spongebathe the foot only in all unopen areas. [...] alternative antibiotics if she refuses hospital admission, but I am concerned about the wound, possible bone infection/abscess and feel that going to the ER is the best choice for admission, MRI and further treatment. Patient will follow-up with me in 1 week if she does decline. documented in this encounter [facility] 11-16-2024 History of Presen t illness Narrative Images from the original note were not included. HPI: Patient presents today complaining of an ulcer on the bottom of the right great toe. Patient has pain with walking and standing due to this lesion. Patient's daughter states that she continue to have problems with a recurrent wound to the right foot along the great toe. She does not usually do a lot of offloading. Patient's diabetes is under okay control. They would like to discuss possibly doing surgery to correct the toe deformity so that [...] site. 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 I did excise nonviable tissue, callus, skin, and slough of ulceration site. This was performed with a tissue nipper [...] underwater until ulcer is completely healed. Patient should spongebathe the foot only in all unopen areas. 5. Patient was instructed on continued dressing changes to the ulceration site with Collagen gel. They should continue with use of the surgical shoe for offloading/pressure reduction, but patient continues to wear a sandal. Patient states that she does not have a surgical shoe, so one was dispensed at today's visit for her to use for offloading. 6. Patient was advised if they notice any worsening to the ulceration site including signs of infection, N/F/V/C to call the office for an urgent appointment or go to the nearest emergency room. 7. RTC: 1 week. Due to the redness around the ulceration site at the right 1st MPJ, prescription for antibiotic was sent to the patient's preferred pharmacy. She was [...] surgery including 2nd opinion, OR personnel and ailyn and post-op care were discussed in detail with the patient. The elective nature of the procedure was also discussed in detail with the patient. Specific complications related to this surgery were also discussed including, but not limited to: possible infection, the need for [...] their surgery date. documented in this encounter [facility] 10-21-2024 Telephone encount er Note Patient canceled 10/23/24 EMG on 10/20/24 due to an appointment conflict. [facility] 10-21-2024 Miscellaneous Notes Formattin g of this note might be different from the original. Patient canceled 10/23/24 EMG on 10/20/24 due to an appointment conflict. documented in this encounter [facility] 10-20-2024 History of Presen t illness Narrative Images from the original note were not included. HPI: Patient presents today complaining of an ulcer on the right foot. Patient has pain with walking and standing due to this lesion. She noticed a callous developing under the big toe and eventually a blister developed which has opened and is draining. Patient's daughter has been doing dressing changes. [...] skin PREVIOUS MEASUREMENT: N/A PRE DEBRIDEMENT SIZE: large heavy callous, blister to the proximal sub 1st MPJ POST DEBRIDEMENT SIZE: 0.7cm x 0.5cm x 0.2cm TRACKING: none DRAINAGE: serous, dried blood noted to the blister site MALODOR: none BASE: granular WOUND EDGES: hyperkeratosis [...] right was evaluated at today's visit. 2. Wound debridement was performed of the ulceration site. 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 I did excise nonviable tissue, callus, skin, and slough of ulceration site. This was performed with a tissue nipper [...] underwater until ulcer is completely healed. Patient should spongebathe the foot only in all unopen areas. 5. Patient was instructed on continued dressing changes to the ulceration site with Collagen gel or Medihoney. They should continue with use of the surgical shoe for offloading/pressure reduction, but patient continues to wear a sandal. 6. Patient was advised if they notice any worsening to the ulceration site including signs of infection, N/F/V/C to call the office for an urgent appointment or go to the nearest emergency room. 7. RTC: 2 weeks. Discussed with the patient the reason for the pressure and blister developing to the sub 1st MPJ right. We did discussed alternative surgical treatment as we did on the left side to reduce the pressure to this area if the patient has continued problems with ulceration and/or pain. documented in this encounter [facility] 10-07-2024 Telephone encount er Note Received call from Raine with [facility] they are happy to take her as a client. [facility] 10-07-2024 Miscellaneous Notes Formattin g of this note might be different from the original. Received call from Raine with [facility] they are happy to take her as a client. documented in this encounter [facility] 10-06-2024 History of Presen t illness Narrative Associated Problem(s): Weakness of both lower extremities --- multifactorial, including PN G62.9, radiculopathy M54.17. Worsening. Redo [facility] BLE (first). Reorder PT - strengthening, balance. Likely will need redo MR L-spine and redo spinal surgery consult. Associated Problem(s): Carpal tunnel syndrome, bilateral --- causing hand weakness R29.898. (Continue splints B nightly.) Redo [facility] BUE due to worsening weakness. Associated Problem(s): Cognitive decline (Continue current regimen.) Associated Problem(s): Cervical paraspinal muscle spasm (Continue current regimen, home PT.) Associated Problem(s): B12 deficiency (Continue B12 SL.) Associated Problem(s): Guyon syndrome, unspecified laterality (Continue avoiding compression.) Images from the original note were not included. Outpatient Progress Note Patient: Taye Gay Dept: Neurology : 1955 Appt Date: 10/06/2024 Prev Appt: 07/21/2024 Chief Complaint Patient presents with cognitive decline Appointment Note -- 6 mo Assessment and Plan - Assessment & Plan Weakness of both lower extremities --- multifactorial, including PN G62.9, radiculopathy M54.17. Worsening. Redo [facility] BLE (first). Reorder PT - strengthening, balance. Likely will need redo MR L-spine and redo spinal surgery consult. Carpal tunnel syndrome, bilateral --- causing hand weakness R29.898. (Continue splints B nightly.) Redo [facility] BUE due to worsening weakness. Cognitive decline (Continue current regimen.) Cervical paraspinal muscle spasm (Continue current regimen, home PT.) B12 deficiency (Continue B12 SL.) Guyon syndrome, unspecified laterality (Continue avoiding compression.) No orders of the defined types were placed in this encounter. Follow-Up - Follow up in about 6 weeks (around 11/17/2024), or 6-8 w REAL TIME OPERATOR; after ENMGs. History of Present Illness, Associated Treatments and Results - Dx SLEEP Tx (nortriptyline) AEs Hx No complaints. Failed Semeiology Snoring. No one has observed pt's sleep. Awakenings per night. Unrefreshed AM. Mouth dry AM. Circadian Noct oxim (02/2017) - CACHORRO=3.4 PSG PAPT MSLT MWT Imaging Testing Surgery Dx PN . PAIN . RLS . B12 . RADIC L S1 . (DM . +BEATRICE) Tx PGB 300 bid + nortriptyline 25 cyclobenz 10 hs B12 SL AEs denies wt gain. Hx Pain - reasonably well controlled. Radic - worsening gait, worsening leg weakness. Now cannot walk from car to clinic, needs wheelchair. Still walking at home, has to hold onto furniture. (+BEATRICE - followed by Dr. Lenz, ) Onset Semeiology Burning, paraesthesiae in feet and fingertips; restlessness; gait ataxia. Imaging MR L-s (11/2023, [facility]) - HNP T12-L1 mild ... canal sten L2-3 mod ... errol sten L2-3 modB L4-5-S1 modB US LE (12/2016, [facility]) - atherosclerosis, nl PVR. Testing [facility] (11/2023) - acute L S1 (nEMG) + PN pattern signif worse . . . . (03/2017, [facility] ) - PN pattern Labs - L31=456/15/116/>22.3, was 359/16.7H/328/>22.3 ... A1c=8.4, was 10.4(!) ,,, BEATRICE=1:320, was 1:80 but subtests nl. . . . . M&S Neurop Panel ([facility]) - _ Surgery Dr. Eden (urg) consult (12/2023) -,surgery felt not to be needed as yet. Failed ?GBP (ineff), dulox ?dose (?why). Dx COGNITION . WMD . ?TIA Tx donepezil 10 bid + memantine 10 bid ASA 81 (+ apixaban) AEs Hx Cogn - relatively stable. ?TIA - end of Mar pt adm to [facility] for gen weakness & slurred speech, resolved prior to arrival at ER. MR could not get done. Intermittent a. fib, apparently none since cardioverted. Onset Semeiology Forgetting things clearly known in past,, forgetting ordering something online, spelling significantly worsened, dangerous decision-making, conversations briefer & telegraphic. Stopped driving 2023 ~August due to gait instability. Does not cook. Daughter has handled the bills for a long time . Imaging MR brain (03/2024) - never done during adm [facility] due to metal . . . . (10/2023, [facility]) - atrophy age-appropriate & ^T2/FLAIR CTA head (03/2024, [facility]) - no stenoses CTA neck(03/2024, [facility]) - < 20% B Testing (q.v.) ... Oximetry - done regularly, reported as nl Surgery Failed Dx MYOFASCIITIS Tx PT ongoing AEs Hx Improved with PT, but inconsistent due to transportation. Onset Semeiology Imaging Testing Surgery Failed cyclobenz Dx CTS Tx splints (+ PGB) + inj (12/2023 B) AEs Hx Surgery improved sx but see exam. Onset Semeiology Numbness B; weakness R. Imaging [...] to gross testing, coordination, and gait are normal or at baseline unless noted below. HEENT - ___, unchanged: Tongue very large ... Mallampati IV, orig: ___ MS - ___, unchanged: ___, orig: ___ CNN - ___, unchanged: ___, orig: ___ Motor - Outpatient Pharmacy Manager 4-R 4L ... APB 4B ... LEs - 4+ throughout (worse), somewhat antalgic, unchanged: ___, orig: Outpatient Pharmacy Manager 4B ... APB 4R 4+L Sens - Tinel's now +B, unchanged: Vibr, temp loss distal LEs ... NO hyperpathia, allodynia, orig: Tinel's +R Reflex - KJ now 0B (worse), unchanged: AJ 0B, orig: KJ 1B Coord - Romberg 2+, unchanged: ___, orig: Romberg 1+ Gait - Wide, steps quite short (not parkinsonian), at least partially antalgic ... wheelchair, unchanged: Wide, quite atactic ... Tandem 3+, orig: ___ Vestib - ___, unchanged: ___, orig: ___ MSK - Spasm - Tr C L mod, unchanged: ___, orig: ___ Other - ___, unchanged: ___, orig: ___ Vital Signs - Visit Vitals Ht 5' 7 Wt 201 lb BMI 31.48 kg/m Smoking Status Every Day BSA 2.08 m Review of Systems - . Const: [...] smear of cervix hpv positive COVID-19 Diabetes ([facility]/HCC) Fibromyalgia High cholesterol ([facility]) History of medical problems ulcer HTN (hypertension) ([facility]/HCC) Neuropathy Rheumatoid arthritis ([facility] [facility]/HCC) Scarlet fever Stomach ulcer Tonsillitis Past Surgical [...] Diabetes Son Outpatient Encounter Medications as of 10/06/2024 Medication Sig Dispense Refill aspirin 81 MG EC tablet Take 81 mg by mouth in the morning. carvedilol (Coreg) 12.5 MG tablet Take 12.5 mg by mouth in the morning and 12.5 mg in the evening. Take with meals. Continuous Blood Gluc Sensor (FreeStyle Brent 14 Day Sensor) [facility] apply 1 SENSOR as directed every 14 days use with DEVICE to MONIT... (REFER TO PRESCRIPTION NOTES). cyanocobalamin (Vitamin B-12) 2500 MCG tablet Docusate Sodium (DSS) 100 MG capsule Take 100 mg by mouth in the morning and 100 mg in the evening. donepezil (Aricept) 10 MG tablet 2 tabs QAM 60 tablet 5 Droplet Pen Marion 32G X 4 MM [facility] use 1 PEN NEEDLE to inject MEDICATION subcutaneously five times a day Eliquis 5 MG tablet Take 5 [...] memantine (Namenda) 10 MG tablet 1 tab BID 60 tablet 5 metFORMIN (Glucophage) 500 MG tablet Take 500 mg by mouth nortriptyline (Pamelor) 25 MG capsule Take 1 capsule (25 mg) by mouth at bedtime 30 capsule 5 omeprazole (PriLOSEC) [address] capsule Ozempic, 1 MG/DOSE, 4 MG/3ML solution pen-injector Administer 1mg subcutaneously once weekly pregabalin (Lyrica) 300 MG capsule TAKE 1 CAPSULE BY MOUTH TWICE A DAY 60 capsule 3 simvastatin (Zocor) 40 MG tablet Take 40 mg by mouth at bedtime Ashley SoloStar 300 UNIT/ML injection inject 20 units subcutaneously as directed No facility-administered encounter medications on file as of 10/06/2024. Oz Kincaid M.D. [facility] Neurology ? [address] ? [place], [place] [address] ? ? fax Neurology ? Clinical Neurophysiology ? Epilepsy ? Sleep Disorders ? Clinical Informatics documented in this encounter [facility] 09-10-2024 Procedure note [facility] 09-10-2024 History and physical note [facility] 08-25-2024 Chief complaint+Reason for visit Narrative Talk about sleep apnea, referral August 25, 2024 1:31pm fu after PT September 07, 2024 11:01am Dysphagia September 10, 2024 10:57am Dysphagia September 10, 2024 12:33pm G47.33 October 01, 2024 2:34pm L97.512 November 16, 2024 4:48pm Reason for Visit Admit Date BMI 32.0-32.9,adult August 20, 2024 9:5 7am Chronic kidney disease (CKD) stage G2/A2, mildly decreased glomerular filtr August 20, 2024 9:57am Dietary counseling and surveillance Apri l 2024 9:57am Hyperlipidemia August 20, 2024 9:5 7am Hypertension August 20, 2024 9:5 7am Peripheral neuropathy August 20, 2024 9 :57am Type 2 diabetes mellitus August 20 9:57am Vitamin B 12 deficiency August 20, 2024 9:57am Cigarette nicotine dependence July 1:31pm Dysphagia, unspecified August 25, 2024 1:31pm Lesion of skin of cheek August 25, 2024 1:31pm Major depression, chronic August 25 1:31pm PAD (peripheral artery disease) August 252024 1:31pm Peripheral neuropathy August 25, 2024 1 :31pm Lumbar spondylosis September 07, 2024 11:01 am Atrial fibrillation October 01, 2024 2:34p m Cardiomyopathy October 01, 2024 2:34p m Congestive heart failure October 01, 2024 2:34pm Daytime sleepiness October 01, 2024 2:34p m Hypertension October 01, 2024 2:34p m Hypothyroid October 01, 2024 2:34p m Intolerance to BiPAP/CPAP October 01, 2024 2:34pm Major depression, chronic October 01, 2024 2:34pm BOSTON (obstructive sleep apnea) October 01, 2024 2:34pm Secondary polycythemia October 01, 2024 2: 34pm [facility] Work Phone: 1(718) 933-194904-24-2025 Evaluation note* Diagnosis Onset Date Resolution Status Admit Date BMI 32.0-32.9,adult acute August 20, 2024 9:57am Chronic kidney disease (CKD) stage G2/A2, mildly decreased glomerular filtr acute August 20 9:57am Dietary counseling and surveillance acute August 20, 2024 9:57am Hyperlipidemia acute July 9:57am Hypertension acute August 20, 2024 9:57am Peripheral neuropathy acute Apr 2024 9:57am Type 2 diabetes mellitus acute August 20, 2024 9:57am Vitamin B 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 A pri2024 9:57am Cigarette nicotine dependence acute August 25, 2024 1:31pm Dysphagia, unspecified acute Ap ril 2024 1:31pm Lesion of skin of cheek acute A pril 2024 1:31pm Major depression, chronic acute August 25, 2024 1:31pm PAD (peripheral artery disease) acut e August 25, 2024 1:31pm Peripheral neuropathy acute Apr 2024 1:31pm Lumbar spondylosis acute September 072024 11:01am Atrial fibrillation acute October 01, 2024 2:34pm Cardiomyopathy acute October 01, 2024 2:34pm Congestive heart failure acute October 01, 2024 2:34pm Daytime sleepiness acute October 012024 2:34pm Hypertension acute October 01 2:34pm Hypothyroid acute October 01 2:34pm Intolerance to BiPAP/CPAP acute October 01, 2024 2:34pm Major depression, chronic acute October 01, 2024 2:34pm BOSTON (obstructive sleep apnea) acute October 01, 2024 2:34pm Secondary polycythemia acute 2024 2:34pm [facility] Work Phone: 1(131) 832-108103-26-2025 Evaluation note* Diagnosis Onset Date Resolution Status Admit Date Cigarette nicotine dependence acute July 22, 2024 10:54am Current every day smoker acute July 22, 2024 10:54am PAD (peripheral artery disease) acut e July 22, 2024 10:54am BMI 32.0-32.9,adult acute August 20, 2024 9:57am Chronic kidney disease (CKD) stage G2/A2, mildly decreased glomerular filtr acute August 20 9:57am Dietary counseling and surveillance acute Michelle 24th, 2025 9:57am Hyperlipidemia acute July 9:57am Hypertension acute August 20, 2024 9:57am Peripheral neuropathy acute Jul 9:57am Type 2 diabetes mellitus acute August 20, 2024 9:57am Vitamin B 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 A pril 2024 9:57am [facility] Work Phone: 1(805) 409-171403-26-2025 Evaluation note* Diagnosis Onset Date Resolution Status Admit Date Cigarette nicotine dependence acute July 22, 2024 10:54am Current every day smoker acute July 22, 2024 10:54am PAD (peripheral artery disease) acut e July 22, 2024 10:54am BMI 32.0-32.9,adult acute August 20, 2024 9:57am Chronic kidney disease (CKD) stage G2/A2, mildly decreased glomerular filtr acute August 20 9:57am Dietary counseling and surveillance acute August 20, 2024 9:57am Hyperlipidemia acute July 9:57am Hypertension acute August 20, 2024 9:57am Peripheral neuropathy acute Apr 2024 9:57am Type 2 diabetes mellitus acute August 20, 2024 9:57am Vitamin B 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 A 2024 9:57am Cigarette nicotine dependence acute August 25, 2024 1:31pm Dysphagia, unspecified acute Ap ril 2024 1:31pm Lesion of skin of cheek acute A pril 2024 1:31pm Major depression, chronic acute August 25, 2024 1:31pm PAD (peripheral artery disease) acut e August 25, 2024 1:31pm Peripheral neuropathy acute Apr 2024 1:31pm [facility] Work Phone: 1(151) 877-857703-26-2025 Evaluation note* Diagnosis Onset Date Resolution Status Admit Date Cigarette nicotine dependence acute July 22, 2024 10:54am Current every day smoker acute July 22, 2024 10:54am PAD (peripheral artery disease) acut e July 22, 2024 10:54am BMI 32.0-32.9,adult acute August 20, 2024 9:57am Chronic kidney disease (CKD) stage G2/A2, mildly decreased glomerular filtr acute August 20 9:57am Dietary counseling and surveillance acute August 20, 2024 9:57am Hyperlipidemia acute July 9:57am Hypertension acute August 20, 2024 9:57am Peripheral neuropathy acute Apr 2024 9:57am Type 2 diabetes mellitus acute August 20, 2024 9:57am Vitamin B 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 A pril 2024 9:57am Cigarette nicotine dependence acute August 25, 2024 1:31pm Dysphagia, unspecified acute Ap ril 2024 1:31pm Lesion of skin of cheek acute A pril 2024 1:31pm Major depression, chronic acute August 25, 2024 1:31pm PAD (peripheral artery disease) acut e August 25, 2024 1:31pm Peripheral neuropathy acute Apr 2024 1:31pm Lumbar spondylosis acute September 072024 11:01am [facility] Work Phone: 1(791) 607-351503-26-2025 Evaluation note* Diagnosis Onset Date Resolution Status Admit Date Cigarette nicotine dependence acute July 22, 2024 10:54am Current every day smoker acute July 22, 2024 10:54am PAD (peripheral artery disease) acut e July 22, 2024 10:54am BMI 32.0-32.9,adult acute August 20, 2024 9:57am Chronic kidney disease (CKD) stage G2/A2, mildly decreased glomerular filtr acute August 20 9:57am Dietary counseling and surveillance acute August 20, 2024 9:57am Hyperlipidemia acute July 9:57am Hypertension acute August 20, 2024 9:57am Peripheral neuropathy acute Apr 2024 9:57am Type 2 diabetes mellitus acute August 20, 2024 9:57am Vitamin B 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 A pril 2024 9:57am Cigarette nicotine dependence acute August 25, 2024 1:31pm Dysphagia, unspecified acute Ap ril 2024 1:31pm Lesion of skin of cheek acute A pril 2024 1:31pm Major depression, chronic acute August 25, 2024 1:31pm PAD (peripheral artery disease) acut e August 25, 2024 1:31pm Peripheral neuropathy acute Jul 1:31pm Lumbar spondylosis acute September 072024 11:01am Atrial fibrillation acute October 01, 2024 2:34pm Cardiomyopathy acute October 01, 2024 2:34pm Congestive heart failure acute October 01, 2024 2:34pm Hypertension acute October 01 2:34pm Hypothyroid acute October 01 2:34pm Intolerance to BiPAP/CPAP acute October 01, 2024 2:34pm Major depression, chronic acute October 01, 2024 2:34pm BOSTON (obstructive sleep apnea) acute October 01, 2024 2:34pm Secondary polycythemia acute 2024 2:34pm [facility] Work Phone: 1(363) 895-229003-25-2025 History of Present illness Narrative* Oz Kincaid MD - 07/21/2024 2:45 PM EDTAssociated Problem(s): Cognitive decline (Continue current regimen.) [facility] records - neuro consults, EEG, MR, carotids, echo, discharge summary. * Oz Kincaid MD - 07/21/2024 2:45 PM EDTAssociated Problem(s): Cervical paraspinal muscle spasm (Continue current regimen, home PT.) * Oz Kincaid MD - 07/21/2024 2:45 PM EDTAssociated Problem(s): B12 deficiency (Continue B12 SL.) * Oz Kincaid MD - 07/21/2024 2:45 PM EDTAssociated Problem(s): Carpal tunnel syndrome, bilateral (Continue splints B nightly.) * Oz Kincaid MD - 07/21/2024 2:45 PM EDTAssociated Problem(s): Guyon syndrome, unspecified laterality (Avoid compression.) * Oz Kincaid MD - 07/21/2024 2:45 PM EDT Images from the original note were not included. Outpatient Progress Note Patient: Taye Agustin Priti Dept: Neurology : 1955 Appt Date: 07/21/2024 Prev Appt: 04/07/2024 Chief Complaint Patient presents with cognitive decline Appointment Note -- Hosp Follow Up Assessment and Plan - Assessment & Plan Cognitive decline (Continue current regimen.) [facility] records - neuro consults, EEG, MR, carotids, echo, discharge summary. Cervical paraspinal muscle spasm (Continue current regimen, home PT.) B12 deficiency (Continue B12 SL.) Carpal tunnel syndrome, bilateral (Continue splints B nightly.) Guyon syndrome, unspecified laterality (Avoid compression.) No orders of the defined types were placed in this encounter. Follow-Up - Follow up in about 6 months (around 01/21/2025). History of Present Illness, Associated Treatments and Results - Dx SLEEP Tx (nortriptyline) AEs Hx No complaints. Failed Semeiology Snoring. No one has observed pt's sleep. Awakenings per night. Unrefreshed AM. Mouth dryAM. Circadian Noct oxim (02/2017) - CACHORRO=3.4 PSG PAPT MSLT MWT Imaging Testing Surgery Dx PN . PAIN . RLS . B12 . L S1 . (DM) Tx PGB 300 bid + nortriptyline 25 cyclobenz 10 hs B12 SL AEs denies wt gain. Hx Pain - reasonably well controlled. Radic - pt had seen Dr. Eden 12/2023, surgery felt not to be needed as yet. +BEATRICE - followed by Dr. Lenz, Onset Semeiology Burning, paraesthesiae in feet and fingertips; restlessness; gait ataxia. Imaging MR L-s (11/2023, [facility]) - HNP T12-L1 mild; canal sten L2-3 mod; errol sten L2-3 modB L4-5-S1 modB US LE (12/2016, [facility]) - atherosclerosis, nl PVR. Testing [facility] (11/2023) - acute L S1 (nEMG) + PN pattern signif worse . . . . (03/2017, [facility]) - PN pattern Labs - V78=994/15/116/>22.3, was 359/16.7H/328/>22.3 ... A1c=8.4, was 10.4(!) ,,, BEATRICE=1:320, was 1:80 but subtests nl. . . . . M&S Neurop Panel ([facility]) - _ Surgery Failed ?GBP (ineff), dulox ?dose (?why). Dx COGNITION . WMD Tx donepezil 10 bid + memantine 10 bid ASA 81 AEs Hx Stopped driving 2023 ~August due to gait instability. Does not cook. Daughter has handled the bills for a long time. Daughter feels there may be an element of depression, especially now that pt is off nortrip. Adm [facility] ~[place] for possible TIA. Walking drunk , Tim. 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 Imaging MR brain (10/2023, [facility]) - not available via OHIP - [...] ___, orig: ___ Motor - ___, unchanged: Outpatient Pharmacy Manager 4B ... APB 4R 4+L, orig: ___ Sens - NO Tinel's, unchanged: Vibr, temp loss distal LEs ... NO hyperpathia, allodynia, orig: Tinel's +R Reflex - ___, unchanged: AJ 0B, orig: KJ 1B Coord - ___, unchanged: Romberg 1+, orig: ___ Gait - ___, unchanged: Wide, quite atactic ... Tandem 3+, orig: ___ Vestib - ___, unchanged: ___, orig: ___ MSK - Spasm - Tr C L mod, unchanged: ___, orig: ___ Other [...] smear of cervix hpv positive COVID-19 Diabetes ([facility]) Fibromyalgia High cholesterol ([facility]) History of medical problems ulcer HTN (hypertension) ([facility]) Neuropathy Rheumatoid arthritis ([facility]) Scarlet fever Stomach ulcer Tonsillitis Past Surgical [...] Diabetes Son Outpatient Encounter Medications as of 07/21/2024 Medication Sig Dispense Refill aspirin 81 MG EC tablet Take 81 mg by mouth in the morning. carvedilol (Coreg) 12.5 MG tablet Take 12.5 mg by mouth in the morning and 12.5 mg in the evening. Take with meals. Continuous Blood Gluc Sensor ([employer] Brent 14 Day Sensor) [facility] apply 1 SENSOR as directed every 14 days use with DEVICE to MONIT... (REFER TO PRESCRIPTION NOTES). cyanocobalamin (Vitamin B-12) 2500 MCG tablet Docusate Sodium (DSS) 100 MG capsule Take 100 mg by mouth in the morning and 100 mg in the evening. donepezil (Aricept) 10 MG tablet Up to 2 QAM if tolerated 60 tablet 3 Droplet Pen Marion 32G X 4 MM [facility] use 1 PEN NEEDLE to inject MEDICATION [...] solution pen-injector Administer 1mg subcutaneously once weekly pregabalin (Lyrica) 300 MG capsule TAKE 1 CAPSULE BY MOUTH TWICE A DAY 60 capsule 3 simvastatin (Zocor) 40 MG tablet Take 40 mg by mouth at bedtime Toujeo SoloStar 300 UNIT/ML injection inject 20 units subcutaneously as directed [DISCONTINUED] cyclobenzaprine (Flexeril) 10 MG tablet TAKE 1 TO 2 TABLETS BY MOUTH AT BEDTIME 60 tablet 3 [DISCONTINUED] lidocaine (Xylocaine) 5 % ointment Apply topically Daily Use as needed over the wound sites with dressing changes. 50 g 2 [DISCONTINUED] pioglitazone (Actos) 15 MG tablet Take 15 mg by mouth at bedtime [DISCONTINUED] pregabalin (Lyrica) 300 MG capsule TAKE 1 CAPSULE BY MOUTH TWICE A DAY 60 capsule 3 [DISCONTINUED] temazepam (Restoril) 30 MG capsule take 1 capsule by mouth at bedtime if needed No facility-administered encounter medications on file as of 07/21/2024. Oz Kincaid M.D. [facility] Neurology ? [address] ? [place], [place] [address] ? ? fax Neurology ? Clinical Neurophysiology ? Epilepsy ? Sleep Disorders ? Clinical Informatics documented in this encounterHermann [facility] [id number] History of Present illness Narrative* Thuan Wise MD - 06/26/2024 9:40 AM EST Subjective Taye Gay is a 68 y.o. female Chief Complaint Follow-up HPI Patient is here for follow-up to management for history of atrial flutter with prior cardioversion and prior treatment with amiodarone. She stopped amiodarone because of concern about lower extremityweakness. She has remained in normal sinus rhythm. She denies complaint of chest pain, palpitation,lightheadedness, dizziness or syncope. She continued to have [...] to have had a recent brief episode ofA-fib while in the hospital for workup for [...] patient at length she understood andagreed 4. We discussed ischemic evaluation the patient [...] by mouth once daily., Disp: 90 tablet, Rfl:3 Assessment/Plan 1. Typical atrial flutter (Multi) ECG [...] in this [facility] Work Phone: 1(926) 705-951502-28-2025 Instructions* Patient Instructions* Melina Lee LPN - 06/26/2024 9:40 AM [...] 6 months [facility]: 1(376) 831-793701-21-2025 Telephone encounter Note* Telephone Encounter - Cali Duque - 05/19/2024 11:20 AM EST Daughter same day canceled same day canceled today's appointment due to overslept. RS for 06/02/24 [facility] [id number] Miscellaneous Notes* Telephone Encounter - Cali Duque - 05/19/2024 11:20 AM EST Daughter same day canceled same day canceled today's appointment due to overslept. RS for 06/02/24 documented in this encounterHermann Area District [id number] [place] [address] Neurology Progress Note Signed with Jamila Patient: Taye Gay MR#: [id number] : 1955 Acct:[id number] Age/Sex: 68 / F Adm Date: 4 Loc: 3T Room: 8Q4095-5 Type: ADM IN Attending Dr: Priscilla Lang MD Copies to: ~ ADDENDUM1 Patient has refused to remove her nail azerbaijani for MRI. Unable to confirm whether or not new stroke is present. Continue aspirin and Eliquis for secondary stroke prevention. Please refer to my assessment and plan for furtherrecommendations. Addendum Documented By: Lit Clark DO 04/30/24 1230 Addendum Signed By: 04/30/24 1230 Date of Service: 04/30/2024 Subjective Subjective Narrative: I saw this patient this morning in follow-up. No acute events overnight. No new neurological concerns. Still awaiting MRI. Patient is awake alert and talking to me. She was eating some breakfast. Shefeels at baseline. Review of Systems Review of [...] transient ischemia or infarct.Further imaging is pending. Interval history: Patient is stable with no acute events from Saturdayinto . Workup: CT of the brain without [...] may be metabolic in nature and not manufacturer representative necessarily of transient ischemia or of [...] Lit Clark DO [id number] Signed By: 04/30/24 0708 [facility]01-02-2025 Discharge summary Author Priscilla Lang [facility] Note Date/Time April 30, 2024 10 :28am [facility] [address] [place] [address] Discharge Summary Signed Patient: Taye Gay MR#: [id number] : 1955 Acct:[id number] Age/Sex: 68 / F Adm Date: 4 Loc: 3T Room: [address] [place] [address]: Priscilla Lang MD Copies to: [...] taking multiple medications that could potentially cause BLUEPRINTING AND PHOTOCOPY SUPERVISOR side effect and toxic encephalopathy. Diagnosis is [...] polypharmacy regimen to reduce her risk of BLUEPRINTING AND PHOTOCOPY SUPERVISOR side effects or drug?drug interaction. At this [...] ask her primary care doctor to obtain [facility] record entirely to address abnormalities seen [...] ask your primary care provider to obtain [facility] records entirely to follow up on [...] or having drug?drug interaction. Discharging you from [facility] does not mean that your medical [...] constipation) (DME) pen needle, diabetic [Sure-Fine Pen Marion] .Route lidocaine 5 % ointment 1 applic [...] % (Auto) 63.5, Lymph % (Auto) 24.9, [place] % (Auto) 8.3, Eos % (Auto) 2.9, Baso % (Auto) 0.4, Nucleat RBC Rel Count 0.0, Neut # (Auto) 4.6, Lymph # (Auto) 1.8, [place] # (Auto) 0.6, Eos # (Auto) 0.2, [...] <Electronically signed by Priscilla Lang MD> 04/30/[address] [place] [address] Work Phone: 1(652) 661-526101-02-2025 [place] [id number] Discharge Summary Signed Patient: Taye Gay MR#: [id number] : 1955 Acct:[id number] Age/Sex: 68 / F Adm Date: 4 Loc: Room: [address] [place] [address]: Priscilla Lang MD Copies to: [...] taking multiple medications that could potentially cause BLUEPRINTING AND PHOTOCOPY SUPERVISOR side effect and toxic encephalopathy. Diagnosis is [...] polypharmacy regimen to reduce her risk of BLUEPRINTING AND PHOTOCOPY SUPERVISOR side effects or drug?drug interaction.At this time, [...] ask her primary care doctor to obtain [facility] record entirely to address abnormalities seen [...] ask your primary care provider to obtain [facility] records entirely to follow up on [...] or having drug?drug interaction. Discharging you from [facility] does not mean that your medical [...] constipation) (DME) pen needle, diabetic [Sure-Fine Pen Marion] .Route lidocaine 5 % ointment 1 applic [...] % (Auto) 63.5, Lymph % (Auto) 24.9, [place] % (Auto) 8.3, Eos % (Auto) 2.9, Baso % (Auto) 0.4, Nucleat RBC Rel Count 0.0, Neut # (Auto) 4.6, Lymph # (Auto) 1.8, [place] # (Auto) 0.6, Eos # (Auto) 0.2, [...] MD 04/30/24 1016 Signed By: 04/30/24 1028 [facility]01-01-2025 Consult note Author Lit Clark [facility] Note Date/Time April 29, 2024 11 :07am [facility] [address] [place] [address] Neurology Consult Note Signed Patient: Taye Gay MR#: [id number] : 1955 Acct:[id number] Age/Sex: 68 / F Adm Date: 4 Loc: Room: [address] [place] [address] Type: ADM IN Attending Dr: Priscilla Lang MD Copies to: DO Sandra Garrido DO Rafik Massouh, MD~ HPI Consult Date: 04/29/24 Software Sales Executive: Lit Clark DO Reason for consult: Slurred [...] negative unless noted below or in HPI [facility] Medical History BMI 32.0-32.9,adult Abnormal thyroid blood [...] Father Heart disease [facility]: Diagnosed with Stroke Cancer throat heart [...] (Stool Softener) 100 mg PO DAILY PRN lpvacglghxsa71/14/24 [History Confirmed 04/28/24] multivitamin 1 tab PO DAILY 06/12/23 [History Confirmed 04/28/24] pen needle, diabetic [Sure-Fine Pen Marion] 06/12/23 [History Confirmed 04/28/24] metformin 500 mg [...] Oz Bowling M.D.04/28/2024 9:46 PM Dictation Location: [facility] 04/28/24 19:44 IMPRESSION: No acute intracranial pathology. No evidence of focal stenosis, aneurysmal dilatation, dissection or occlusion. Impression dictated by: Oz Bowling M.D.04/28/2024 9:44 PM Dictation Location: [place] [address] Assessment/Plan (1) Atrial fibrillation: Qualifiers: Atrial fibrillation [...] may be metabolic in nature and not manufacturer representative necessarily of transient ischemia or of [...] follow. Documented By: Lit Clark DO [id number] Signed By: <Electronically signed by Lit Clark DO> 04/29/24 0137 [facility] Work Phone: 1(452) 154-952401-01-2025 Progress note Author Priscilla Lang [facility] Note Date/Time April 29, 2024 11 :02am [facility] [address] [place] [address] Hospitalist Progress Note Signed Patient: Taye Gay MR#: [id number] : 1955 Acct:[id number] Age/Sex: 68 / F Adm Date: 4 Loc: Room: [address] [place] [address] Type: ADM IN Attending Dr: Priscilla Lang [...] of dementia, possible Alzheimer's dementia -continue home [id number] mg twice daily and donepezil 20 mg [...] signed by Priscilla Lang MD> 04/29/24 1108 [facility] Work Phone: 1(697) 699-770301-01-2025 [place] [address] Neurology Consult Note Signed Patient: Taye Gay MR#: [id number] : 1955 Acct:[id number] Age/Sex: 68 / F Adm Date: 4 Loc: 3T Room: [address] [place] [address] Type: ADM IN Attending Dr: Priscilla Lang MD Copies to: DO Sandra Garrido DO Rafik Massouh, MD~ HPI Consult Date: 04/29/24 Software Sales Executive: Lit Clark DO Reason for consult: Slurred [...] negative unless noted below or in HPI [facility] [facility] Medical History BMI 32.0-32.9,adult Abnormal thyroid blood [...] (Stool Softener) 100 mg PO DAILY PRN nwzcncfjyfqm22/14/24 [History Confirmed 04/28/24] multivitamin 1 tab PO DAILY 06/12/23 [History Confirmed 04/28/24] pen needle, diabetic [Sure-Fine Pen Marion] 06/12/23 [History Confirmed 04/28/24] metformin 500 mg [...] 9:46 PM Dictation Location: [facility]-[address] 04/28/24 19:44 IMPRESSION: No acute intracranial pathology. No evidence of focal stenosis, aneurysmal dilatation, dissection or occlusion. Impression dictated by: Oz Bowling M.D.04/28/2024 9:44 PM Dictation Location: [facility]--17 Assessment/Plan (1) Atrial fibrillation: Qualifiers: Atrial fibrillation [...] may be metabolic in nature and not manufacturer representative necessarily of transient ischemia or of [...] Clark DO 5 0858 Signed By: 04/29/[address] [place], [place] 6184901-01-2025 [place] [address] Hospitalist Progress Note Signed Patient: Taye Gay MR#: [id number] : 1955 Acct:[id number] Age/Sex: 68 / F Adm Date: 4 Loc: Room: [address] [place] [address] Type: ADM IN Attending Dr: Priscilla Lang [...] RBCs and rare yeast. Evys provided 3 to24 mg of aspirin x [...] of dementia, possible Alzheimer's dementia -continue home vadfwrrxe72 mg twice daily and donepezil 20 mg [...] MD 04/29/24 1059 Signed By: 04/29/24 1102 [facility]01-01-2025 History and physical note Author Jori Hearn [facility] Note Date/Time April 29, 2024 6: 39am [facility] [address] [place] [address] Hospitalist H&P Signed Patient: Taye Gay MR#: [id number] : 1955 Acct:[id number] Age/Sex: 68 / F Adm Date: 4 Loc: 3T Room: [address] [place] [address] Type: ADM IN Attending Dr: Jori Hearn DO Copies to: DO Jori aDniels DO~ HPI DATE OF EXAMINATION: 04/29/24 CHIEF [...] presence of WBCs, RBCs and rare yeast. Shes provided 3 to 24 mg of aspirin [...] of dementia, possible Alzheimer's dementia -continue home sxylyujrr79 mg twice daily and donepezil 20 mg daily 12. Atrial fibrillation - continue Eliquis 5 mg twice daily for anticoagulationand carvedilol 12.5 mg twice daily. EKG in ER shows NSR 13. Hypoxia - no respiratory distress or cardiopulmonary complaints to accompany this. Will monitor telemetry and address as needed [facility] Medical History BMI 32.0-32.9,adult Abnormal thyroid blood [...] (Stool Softener) 100 mg PO DAILY PRN ihpmrrspwloz43/14/24 [History Confirmed 04/28/24] multivitamin 1 tab PO DAILY 06/12/23 [History Confirmed 04/28/24] pen needle, diabetic [Sure-Fine Pen Marion] 06/12/23 [History Confirmed 04/28/24] metformin 500 mg [...] % (Auto) 24.6 % (.) 04/28/24 19:54 [place] % (Auto) 7.6 % (.) 04/28/24 19:54 Eos % (Auto) 2.7 % (.) 04/28/24 19:54 Baso % (Auto) 1.1 % (.) 04/28/24 19:54 Nucleat RBC Rel Count 0.2 /100 WBC (0-0.5) 04/28/24 19:54 Neut # (Auto) 6.5 x10E3/uL (1.8-7.7) 04/28/24 19:54 Lymph # (Auto) 2.5 x10E3/uL (1.00-4.8) 04/28/24 19:54 [place] # (Auto) 0.8 x10E3/uL (0.0-0.8) 04/28/24 19:54 [...] pH 5.5 (5.0-9.0) 04/28/24 22:02 Ur Specific [place] 1.038 (1.001-1.030) H 04/28/24 22:02 Urine Protein [...] stay (# of days): 3 Documented By: Jori Hearn DO 04/28/24 22 57 Signed By: <Electronically signed by Jori Hearn DO> 04/29/24 0639 [facility] Work Phone: 1(425) 988-819201-01-2025 History and physical [place] [id number] Hospitalist H&P Signed Patient: Taye Gay MR#: [id number] : 1955 Acct:[id number] Age/Sex: 68 / F Adm Date: 4 Loc: Room: [address] [place] [address] Type: ADM IN Attending Dr: Jori Hearn DO Copies to: DO Jori Daniels DO~ HPI DATE OF EXAMINATION: 04/29/24 [...] of dementia, possible Alzheimer's dementia -continue home uaaalvmvw61 mg twice daily and donepezil 20 mg daily 12. Atrial fibrillation - continue Eliquis 5 mg twice daily for anticoagulationand carvedilol 12.5 mg twice daily. EKG in ER shows NSR 13. Hypoxia - no respiratory distress or cardiopulmonary complaints to accompany this. Will monitortelemetry and address as needed [facility] Medical History BMI 32.0-32.9,adult Abnormal thyroid blood [...] (Stool Softener) 100 mg PO DAILY PRN wrsbmwuokfxh33/14/24 [History Confirmed 04/28/24] multivitamin 1 tab PO DAILY 06/12/23 [History Confirmed 04/28/24] pen needle, diabetic [Sure-Fine Pen Marion] 06/12/23 [History Confirmed 04/28/24] metformin 500 mg [...] % (Auto) 24.6 % (.) 04/28/24 19:54 [place] % (Auto) 7.6 % (.) 04/28/24 19:54 Eos % (Auto) 2.7 % (.) 04/28/24 19:54 Baso % (Auto) 1.1 % (.) 04/28/24 19:54 Nucleat RBC Rel Count 0.2 /100 WBC (0-0.5) 04/28/24 19:54 Neut # (Auto) 6.5 x10E3/uL (1.8-7.7) 04/28/24 19:54 Lymph # (Auto) 2.5 x10E3/uL (1.00-4.8) 04/28/24 19:54 [place] # (Auto) 0.8 x10E3/uL (0.0-0.8) 04/28/24 19:54 [...] pH 5.5 (5.0-9.0) 04/28/24 22:02 Ur Specific [place] 1.038 (1.001-1.030) H 04/28/24 22:02 Urine Protein [...] stay (# of days): 3 Documented By: Jori Hearn DO 04/28/24 22 57 Signed By: 04/29/24 0639 [facility]12-31-2024 Radiology Diagnostic study note [facility] Main [place] [address] [place] [address] CT Scan Report Signed Patient: Taye Gay MR#: [id number] : 1955 Acct:[id number] Age/Sex: 68 / F ADM Date: 4 Loc: ER Room: Type: [facility] ER Attending Dr: Copies to: Wesley Villafuerte PA-C~ Ordering Provider: Wesley Villafuerte PA-C Date of Service: 04/28/24 CT/CT angio head: weakness ([id number]) CT/CT angio neck: weakness ([id number]) CT/CT head/brain wo con: weakness CT head/brain [...] Oz Bowling M.D.04/28/2024 9:44 PM Dictation Location: [place] [address] Transcribed By: [facility] 04/28/242143 Dictated By: Oz Bowling II, MD 04/28/242129 Signed By: 04/28/242143 [facility] Work Phone: 1(359) 723-568112-31-2024 Evaluation note* Diagnosis Onset Date Resolution Status Admit Date High granulocyte count acute De cem2023 9:53am Secondary polycythemia acute De cember 2023 9:53am BMI 32.0-32.9,adult acute Decem vivek 2023 11:14am Chronic kidney disease (CKD) stage [...] attack) acut e May 07, 2024 1:02pm [facility] Work Phone: 1(429) 990-595212-31-2024 Evaluation note* Diagnosis Onset Date Resolution Status Admit Date High granulocyte count acute 2023 9:53am Secondary polycythemia acute 2023 9:53am [...] May 07, 2024 1:02pm Stool incontinence acute Maurisio 2024 1:02pm TIA (transient ischemic attack) acut e May 07, 2024 1:02pm Cigarette nicotine dependence acute July 22, 2024 10:54am Current every day smoker acute July 22, 2024 10:54am PAD (peripheral artery disease) acut e July 22, 2024 10:54am [facility] Work Phone: 1([phone]) 414-499012-17-2024 Evaluation note* Diagnosis Onset Date Resolution Status Admit Date High granulocyte count acute De 2023 9:30am Secondary polycythemia acute De 2023 9:30am BMI 32.0-32.9,adult acute Decem 2023 11:14am Chronic kidney disease (CKD) stage G2/A2, mildly decreased glomerular filtr acute April 28, 2024 11:14am Dietary counseling and surveillance acute April 28 11:14am Hyperlipidemia acute March 312023 11:14am Hypertension acute March 11:14am Peripheral neuropathy acute Dec emb2023 11:14am Type 2 diabetes mellitus acute April 28, 2024 11:14am Vitamin B 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 D ecember 2023 11:14am TIA (transient ischemic attack) acut e April 28, 2024 10:38pm [facility] Work Phone: 1(184) 347-739312-17-2024 Evaluation note* Diagnosis Onset Date Resolution Status Admit Date High granulocyte count acute De 2023 9:30am Secondary polycythemia acute De 2023 9:30am BMI 32.0-32.9,adult acute Decem 2023 11:14am Chronic kidney disease (CKD) stage G2/A2, mildly decreased glomerular filtr acute April 28, 2024 11:14am Dietary counseling and surveillance acute April 28 11:14am Hyperlipidemia acute March 312023 11:14am Hypertension acute March 11:14am Peripheral neuropathy acute Dec emb2023 11:14am Type 2 diabetes mellitus acute April 28, 2024 11:14am Vitamin B 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 D ecember 2023 11:14am Atrial fibrillation acute Decem 2023 10:38pm Generalized weakness acute Dece mb2023 10:38pm Insulin dependent diabetes mellitus acute April 28 10:38pm TIA (transient ischemic attack) acut e April 28, 2024 10:38pm [facility] Work Phone: 1(173) 269-265412-17-2024 Evaluation note* Diagnosis Onset Date Resolution Status Admit Date High granulocyte count acute De cem2023 9:30am Secondary polycythemia acute De 2023 9:30am High granulocyte count acute De cem2023 [...] nicotine dependence acute May 07, 2024 1:02pm [facility] Work Phone: 1(520) 374-269112-17-2024 Evaluation note* Diagnosis Onset Date Resolution Status Admit Date High granulocyte count acute De 2023 9:30am Secondary polycythemia acute De cem2023 9:30am High granulocyte count acute De 2023 [...] ecember 2023 11:14am Atrial fibrillation acute Decem vivek 2023 10:38pm Generalized weakness acute Dece mber 2023 10:38pm Insulin dependent diabetes mellitus acute April 28, 024 10:38pm TIA (transient ischemic attack) acut e April 28, 2024 10:38pm Cigarette nicotine dependence acute May 07, 2024 1:02pm Disordered sleep acute May 07, 2024 1:02pm Hypotension acute May 07, 2024 1:02pm Stool incontinence acute Januar y 2024 1:02pm TIA (transient ischemic attack) acut e May 07, 2024 1:02pm [facility] Work Phone: 1(725) 687-164212-11-2024 History of Present illness Narrative* Karl Fritz, BARRIE - 04/08/2024 4:00 PM EST Images from the original note were not included. HPI: Patient presents today complaining of an ulcer on the lateral 5th right foot. Patient has pain withwalking and standing due to this lesion. Patient has tried [facility] for treatment, x-ray, antibiotic, (not taking [...] 7. RTC: 2 weeks. documented in this encounterHermann Area District HospitalZfxxvjrdfe31-57-9536 History of Present illness Narrative* Oz Kincaid [...] not included. 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 History of Present Illness, Associated Treatments and [...] fingertips 08/06. Restlessness well controlled. Imaging MR Keller (11/2023, [facility]) - HNP T12-L1 mild; canal sten L2-3 mod; errol sten L2-3 modB L4-5-S1 modB US LE (12/2016, [facility]) - atherosclerosis, nl PVR. Testing [facility] (11/2023) - acute L S1 (nEMG) + PN pattern signif worse . . . . (03/2017, [facility]) - PN pattern Labs - R83=108/15/116/>22.3, was 359/16.7H/328/>22.3 ... A1c=8.4, was 10.4(!) ,,, [...] nortrip. Onset Semeiology Imaging MR brain (10/2023, [facility]) - not available via [facility] - atrophy age- appropriate & ^T2/FLAIR [...] ___, orig: ___ Motor - ___, unchanged: Outpatient Pharmacy Manager 4B ... APB 4R 4+L, orig: ___ [...] smear of cervix hpv positive COVID-19 Diabetes ([facility]) Fibromyalgia High cholesterol ([facility]) History of medical problems ulcer HTN (hypertension) ([facility]) Neuropathy Rheumatoid arthritis ([facility]) Scarlet fever Stomach ulcer Tonsillitis Past Surgical [...] Gluc Sensor (FreeStyle Brent 14 Day Sensor) [facility] apply 1 SENSOR as directed every 14 [...] if tolerated 60 tablet 3 Droplet Pen Marion 32G X 4 MM [facility] use 1 PEN NEEDLE to inject MEDICATION [...] Kincaid M.D. [facility] ? [address] ? [place], [place] [address] ? ? fax Neurology ? Clinical Neurophysiology ? Epilepsy ? Sleep Disorders ? Clinical Informatics documented in this encounterHermann Area District HospitalGctnisfwue80-28-3844 History of Present illness Narrative* Thuan Wise [...] Attestation By signing my name below, Vania Bardales LPN, Scribe attest that this documentation has [...] exam, discussion and plan. documented in this encounterKnox [facility] Hospital Work Phone: 1([phone]) 813-718011-27-2024 Instructions* Patient Instructions* Dave Meneses MA - [...] time of your visit. documented in this encounterKnox [facility] Hospital Work Phone: 1(337) 566-961810-29-2024 History of Present illness Narrative* Oz Kincaid MD - 02/25/2024 2:43 PM EDTAssociated Problem(s): BEATRICE positive Get Dr. Gonzalez's note (2nd request). * Oz Kincaid MD - 02/25/2024 2:15 PM EDTAssociated Problem(s): Cognitive decline Add memantine 10 -> bid. Then add donepezil 10, titrate. Handout. Get MR images transferred to [facility] PACS for my review. * Oz Kincaid [...] titrate. Handout. Get MR images transferred to [facility] PACS for my review. Neurogenic pain (Continue [...] fingertips 08/06. Restlessness well controlled. Imaging MR Yao-s (11/2023, [facility]) - HNP T12-L1 mild; canal sten L2-3 mod; errol sten L2-3 modB L4-5-S1 modB US LE (12/2016, [facility]) - atherosclerosis, nl PVR. Testing [facility] (11/2023) - acute L S1 (nEMG) + PN pattern signif worse . . . . (03/2017, [facility]) - PN pattern Labs - I29=584/15/116/>22.3, was 359/16.7H/328/>22.3 ... A1c=8.4, was 10.4(!) ,,, [...] nortrip. Onset Semeiology Imaging MR brain (10/2023, [facility]) - not available via [facility] - atrophy age- appropriate & ^T2/FLAIR [...] ___, orig: ___ Motor - ___, unchanged: Outpatient Pharmacy Manager 4B ... APB 4R 4+L, orig: ___ [...] smear of cervix hpv positive COVID-19 Diabetes ([facility]) Fibromyalgia High cholesterol ([facility]) History of medical problems ulcer HTN (hypertension) ([facility]) Neuropathy Rheumatoid arthritis ([facility]) Scarlet fever Stomach ulcer Tonsillitis Past Surgical [...] Gluc Sensor (FreeStyle Brent 14 Day Sensor) [facility] apply 1 SENSOR as directed every 14 days use with DEVICE to MONIT... (REFER TO PRESCRIPTION NOTES). cyanocobalamin (Vitamin B-12) 2500 MCG tablet cyclobenzaprine (Flexeril) 10 MG tablet 1-2 tabs QHS 60 tablet 3 Docusate Sodium (DSS) 100 MG capsule Take 100 mg by mouth in the morning and 100 mg in the evening. Droplet Pen [place] 32G X 4 MM [facility] use 1 PEN NEEDLE to inject MEDICATION [...] ? [address] ? [place] [address] ? ? fax Neurology ? Clinical Neurophysiology ? Epilepsy ? Sleep Disorders ? Clinical Informatics documented in this encounterHermann Area District HospitalOnqvtetnei24-83-4806 History of Present illness Narrative* Karl Yip Fritz, DPM - 02/10/2024 2:00 PM EDT Images from the original note were not included. HPI: Patient presents today complaining of an ulcer on the plantar 1st met right foot. They have noticedthis for the past month (10/2023). Patient has pain with walking and standing due to this lesion. Patient has tried [facility] for treatment, x-ray, antibiotic, (not taking [...] 7. RTC: 2 weeks. documented in this encounterHermann Area District HospitalOkfmjmhcge45-05-5055 History of Present illness Narrative* Karl Fritz DPM - 01/27/2024 10:30 AM EDT Images from the original note were not included. HPI: Patient presents today complaining of an ulcer on the plantar 1st met right foot. They have noticedthis for the past month (10/2023). Patient has pain with walking and standing due to this lesion. Patient has tried [facility] for treatment, x-ray, antibiotic, (not taking [...] 1 week for recheck. documented in this encounterHermann Area District HospitalGexzsvkhzd31-53-7297 History of Present illness Narrative* Karl Fritz [...] 1 week for recheck. documented in this encounterHermann Area District HospitalAwqitdpiny89-06-5121 Telephone encounter Note* Telephone Encounter - Cali Duque - 01/10/2024 2:34 PM EDT Called and spoke with Corinna twice both times got disconnected. On purpose or by accident not sure, second time Corinna was given Dr Kincaid's answer. Not sure if she got full and complete answer, but she got enough of it. Herm[facility] District HospitalWecilojosj04-60-2203 Miscellaneous Notes* Telephone Encounter - Cali Duque [...] x several days, then 300 bid Corinna [phone] documented in this encounterHermann Area District HospitalMaxqtqoboo02-57-6037 Telephone encounter Note* Telephone Encounter - Cali Duque - 01/08/2024 12:37 PM EDT Daughter (Corinna Ayala) called, She was talking with Taye's Nurse, They would like to know if Gabapentin would be a better option for Taye than the PGB? You just inc her PGB from 1 cap bid to 150/300 x several days, then 300 bid Corinna [phone] [facility] Ubyktnhjpd86-10-3870 History of Present illness Narrative* Oz Kincaid [...] From prev - [[[Lost to follow-up since 2019. Worsening gait, more unsteady, muscle atrophy in LEs. Burning paraesthesiae B feet, about equal bilat. Onset Semeiology Paraesthesiae in feet and fingertips 08/06. Restlessness well controlled. Imaging MR L-s (11/2023, [facility]) - HNP T12-L1 mild; canal sten L2-3 mod; errol sten L2-3 modB L4-5-S1 modB US LE (12/2016, [facility]) - atherosclerosis, nl PVR. Testing [facility] (11/2023) - acute L S1 (nEMG) + PN pattern signif worse . . . . (03/2017, [facility]) - PN pattern Labs - Q86=217/15/116/>22.3, was 359/16.7H/328/>22.3 ... A1c=8.4, was 10.4(!) ,,, [...] ___, orig: ___ Motor - ___, unchanged: Outpatient Pharmacy Manager 4B ... APB 4R 4+L, orig: ___ [...] in the morning. Continuous Blood Gluc Sensor (Phonitive - TouchalizeStyle Brent 14 Day Sensor) [facility] apply 1 SENSOR as directed every 14 days use with DEVICE to MONIT... (REFER TO PRESCRIPTION NOTES). cyanocobalamin (Vitamin B-12) 2500 MCG tablet Docusate Sodium (DSS) 100 MG capsule Take 100 mg by mouth in the morning and 100 mg in the evening. Droplet Pen [place] 32G X 4 MM [facility] use 1 PEN NEEDLE to inject MEDICATION [...] 01/07/2024. Oz Kincaid M.D. documented in this encounterHermann Area District HospitalKhudgjxsuq32-98-8045 History of Present illness Narrative* Karl Fritz, NADIAM - 01/07/2024 9:45 AM EDT Images from [...] due to this lesion. Patient has tried [facility] for treatment, x-ray, antibiotic, (not taking [...] site with sean vega. She does have [facility] and updated orders will be sent. [...] 7. RTC: 2 weeks. documented in this encounterHermann Area District HospitalOrvwvytncd59-08-0353 History of Present illness Narrative* Oz Kincaid [...] arranged Oz Kincaid M.D. documented in this encounterHermann Area District HospitalZovvhmanky80-15-2725 History of Present illness Narrative* Thuan Wise [...] exam, discussion and plan. documented in this encounterKnox Community Hospital Work Phone: 1(550) 493-116208-19-2024 Instructions* Patient Instructions* Sofie Dean LPN - [...] to Increase physical activity. documented in this encounterKnox Community Hospital Work Phone: 1(435) 335-622407-17-2024 History of Present illness Narrative* Jonas Ch [...] Cardiology 2. Nonischemic cardiomyopathy (Multi) Resolved with sabianist of sinus rhythm 3. Hypercholesteremia Review of [...] exam, discussion and plan. documented in this encounterKnox Community Hospital Work Phone: 1([phone]) 588-231407-17-2024 Instructions* Patient Instructions* Dakota Barraza RN - [...] to Increase physical activity documented in this [facility] Work Phone: 1(476) 329-332607-15-2024 Progress note Author Chaka Frye [facility] November 11, 2023 4:15pm Note Date/Time November 11, 2023 4:15 pm [facility] [address] [place], [place] [id number] Hospitalist Progress Note Signed Patient: Taye Gay MR#: [id number] : 1955 Acct:[id number] Age/Sex: 67 / F Adm Date: 4 Loc: 4N Room: [address] [place] [address] Type: ADM IN Attending Dr: Chaka Frye [...] 11/10/23 09:00 11/11/23 08:44 Aspirin 81 Mg Tablet.Dr PO 11/09/24 08:59 [...] <Electronically signed by Chaka Frye MD> 11/11/23 8939 [facility] Work Phone: 1(667) 374-250207-15-2024 Consult note Author Lit [facility] November 11, 2023 3:11pm Note Date/Time November 11, 2023 10:4 3am [facility] [address] [place] [address] Neurology Consult Note Signed Patient: Taye Gay MR#: [id number] : 1955 Acct:[id number] Age/Sex: 67 / F Adm Date: 4 Loc: 4N Room: 5G0940-4 Type: ADM IN Attending Dr: Chaka Frye MD Copies to: DO Geraldo Garrido MD, RES MD Sandra Mar DO~ HPI Consult Date: 11/11/23 Software Sales Executive: Geraldo Vo MD, RES Reason for consult: Progressive generalized weakness Consult Narrative HPI: Taye Gay is a 67 y.o. female with a PMH of esophageal stricture, cigarette smoker, GERD, HTN, type 2 diabetes mellitus, HLD, CKD stage G2/A2, peripheral neuropathy and vit B12 deficiency who [facility] for concerns regarding generalized weakness. Neurology was consulted for evaluation of generalized weakness. Additional HPI is noted in Assessment and Plan. [facility] Medical History History of esophageal stricture BMI [...] Confirmed 11/09/23] pen needle, diabetic [Sure-Fine Pen Marion] 06/12/23 [History Confirmed 11/09/23] omeprazole 20 mg [...] Oz Bowling M.D.11/10/2023 1:15 PM Dictation Location: [facility]-13 Therapy Recommendations Therapy Recommendations: OT Recommendations OT Recommended Discharge Intermediate Facility Location OT Recommended Services at Physical Therapy,Occupational Therapy Discharge PT Recommendations PT Recommended Discharge Intermediate Facility Location PT Recommended Services at Physical Therapy,Occupational Therapy Discharge Assessment/Plan (1) Ambulatory dysfunction: (2) Weakness: (3) Hypothyroid: Qualifiers: Hypothyroidism type: unspecified Qualified Code(s): E03.9 - Hypothyroidism, unspecified (4) Hypomagnesemia: (5) Type 2 diabetes mellitus with hyperglycemia: Qualifiers: Diabetes mellitus 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 female with a PMH of esophageal stricture, cigarette smoker, GERD, HTN, type 2 diabetes mellitus, HLD, CKD stage G2/A2, peripheral neuropathy and vit B12 deficiency who presented to [facility] 11[facility]23 for concerns regarding [...] signed by MD GAGE Vo> 11/11/23 1043 [facility] Work Phone: 1(881) 755-909307-14-2024 Progress note Author Kirt Renae [facility] November 10, 2023 12:24pm Note Date/Time November 10, 2023 12:0 0pm [facility] [address] [place] [address] Hospitalist Progress Note Signed Patient: Taye Gay MR#: [id number] : 1955 Acct:[id number] Age/Sex: 67 / F Adm Date: 4 Loc: Room: [address] [place] [address] Type: ADM IN Attending Dr: Kirt Renae [...] ESR and CRP -Obtain anti Sushma, Anti RENTAL MANAGER, anti dsDNA -Obtain CT head without contrast [...] signed by Kirt Renae MD> 11/10/23 1224 [facility] Work Phone: 1(683) 677-756407-14-2024 History and physical note Author Jluis Campos [facility] November 10, 2023 6:20am Note Date/Time November 10, 2023 6:11 am [facility] [address] [place] [address] Hospitalist H&P Signed Patient: Taye Gay MR#: [id number] : 1955 Acct:[id number] Age/Sex: 67 / F Adm Date: 4 Loc: 4N Room: [address] [place] [address] Type: ADM IN Attending Dr: Jluis Campos [...] negative unless noted below or in HPI [facility] Medical History History of esophageal stricture BMI [...] Confirmed 11/09/23] pen needle, diabetic [Sure-Fine Pen Marion] 06/12/23 [History Confirmed 11/09/23] omeprazole 20 mg [...] weaknesses were noted, patient unable to ambulate. Mmtd-gz-dkoj test was normal. No tremors or ataxia with nzchvq-sx-vypj movements. Neuro: AOx3, CN II-VII intact. Moves [...] % (Auto) 26.0 % (.) 11/10/23 03:41 [place] % (Auto) 8.2 % (.) 11/10/23 03:41 Eos % (Auto) 3.7 % (.) 11/10/23 03:41 Baso % (Auto) 0.9 % (.) 11/10/23 03:41 Nucleat RBC Rel Count 0.1 /100 WBC (0-0.5) 11/10/23 03:41 Neut # (Auto) 5.2 x10E3/uL (1.8-7.7) 11/10/23 03:41 Lymph # (Auto) 2.2 x10E3/uL (1.00-4.8) 11/10/23 03:41 [place] # (Auto) 0.7 x10E3/uL (0.0-0.8) 11/10/23 03:41 [...] pH 6.0 (5.0-9.0) 11/10/23 05:02 Ur Specific [place] 1.007 (1.001-1.030) 11/10/23 05:02 Urine Protein Negative [...] 11/10/23606 Signed By: <Electronically signed by Jluis Campos, > 11/10/23619 [facility] Work Phone: [phone] 520-661507-09-2024 [facility] History of Present illness Narrative* [...] to make adjustments and amiodarone before my alf. Vitals: 10/07/23 0948 BP: 114/90 BP Location: [...] mellitus with other specified complication, unspecified whether vermin exterminator insulin use (Multi) Managed by other providers 7. BMI 28.0-28.9,adult The merits of diet and weight loss were advocated Scribe Attestation By signing my name below, I, Erensto Carrizales LPN attest that this documentation has [...] in this [facility] Work Phone: [phone]) 206-901906-10-2024 Instructions* Patient Instructions* Cary Mcdonnell RN - [...] Fall Prevention Education Given documented in this [facility] Work Phone: [phone] 771-394305-18-2024 Progress note Author Faraz G[facility] September 14, 2023 1:34pm Note Date/Time September 14, 2023 1:26p m [facility] [address] [place] [address] Cardiology Progress Note Signed Patient: Taye Gay MR#: [id number] : 1955 Acct:[id number] Age/Sex: 67 / F Adm Date: 4 Loc: Room: [address] [place] [address] Type: ADM IN Attending Dr: Elva Florian [...] signed by Faraz Gilliam MD> 09/14/23 1334 [facility] Work Phone: [phone] 424-333705-18-2024 Progress note Author Elva Florian [facility] September 14, 2023 2:03am Note Date/Time September 13, 2023 6:15p m [facility] [address] [place] [address] Hospitalist Progress Note Signed Patient: Taye Gay MR#: [id number] : 1955 Acct:[id number] Age/Sex: 67 / F Adm Date: 4 Loc: Room: [address] [place] [address] Type: ADM IN Attending Dr: Elva Florian [...] SUBCUT 09/11/24 21:59 Not Given TID.WM.HS [facility] Protocol Insulin Glargine 20 units 09/13/23 09:00 [...] Plan Documented By: Elva Florian MD 09/13/23 4099 Signed By: <Electronically signed by Elva Florian MD> 09/14/23 0200 [facility] Work Phone: [phone] Consult note Author Jonas Ch [facility] September 13, 2023 12:25pm Note Date/Time September 13, 2023 12:26 pm [facility] [address] [place] [address] Cardiology Consult Note Signed Patient: Taye Gay MR#: [id number] : 1955 Acct:[id number] Age/Sex: 67 / F Adm Date: 4 Loc: 3T Room: [address] [place] [address] Type: ADM INOo Attending Dr: Elva Florian [...] and no additional complaints, except as documented [facility] Medical History History of esophageal stricture BMI [...] Father Heart disease History of stroke [facility] Problem: Diagnosed with Stroke Cancer throat [...] Confirmed 09/12/23] pen needle, diabetic [Sure-Fine Pen [place]] 06/12/23 [History Confirmed 09/12/23] nortriptyline 50 mg [...] x10E3/uL Lymph # (Auto) 2.0 (1.00-4.8) x10E3/uL [place] # (Auto) 0.6 (0.0-0.8) x10E3/uL Eos # [...] ml @ 999 mls/hr IV .Q1H1M ONE Rx#:[id number] Oral 50 / 50 Output: Urine 600 [...] By: <Electronically signed by MD Jonas Ch> 09/13/231224 [facility] Work Phone: [phone] History and physical note Author Elva Florian [facility] September 13, 2023 2:09am Note Date/Time September 12, 2023 7:53p m [facility] [address] [place] [address] Hospitalist H&P Signed Patient: Taye Gay MR#: [id number] : 1955 Acct:[id number] Age/Sex: 67 / F Adm Date: 4 Loc: Room: [address] [place] [address] Type: ADM INOo Attending Dr: Elva Florian [...] care Discussed with:?the medical team, the patient [facility] Medical History History of esophageal stricture BMI [...] Father Heart disease History of stroke [facility] Problem: Diagnosed with Stroke Cancer throat [...] Confirmed 09/12/23] pen needle, diabetic [Sure-Fine Pen [place]] 06/12/23 [History Confirmed 09/12/23] nortriptyline 50 mg [...] % (Auto) 20.2 % (.) 09/12/23 14:51 [place] % (Auto) 5.9 % (.) 09/12/23 14:51 Eos % (Auto) 1.7 % (.) 09/12/23 14:51 Baso % (Auto) 0.9 % (.) 09/12/23 14:51 Nucleat RBC Rel Count 0.2 /100 WBC (0-0.5) 09/12/23 14:51 Neut # (Auto) 7.0 x10E3/uL (1.8-7.7) 09/12/23 14:51 Lymph # (Auto) 2.0 x10E3/uL (1.00-4.8) 09/12/23 14:51 [place] # (Auto) 0.6 x10E3/uL (0.0-0.8) 09/12/23 14:51 [...] signed by Elva Florian MD> 09/13/23 0209 [facility] Work Phone: [phone]) 400-614102-12-2024 Evaluation note* Encounter Date Diagnosis Assessment Notes Treatment Notes Treatment Clinical Notes May, Type 2 diabetes mellitus with hyperglycemia (ICD-10 - E11.65) [facility] Other 01-23-2024 Evaluation note* Encounter Date Diagnosis Assessment Notes Treatment Notes Treatment Clinical Notes Apr, Primary insomnia (ICD-10 - F51.01) [facility] Other 12-11-2023 Evaluation note* Encounter Date Diagnosis Assessment Notes Treatment Notes Treatment Clinical Notes Mar, Type 2 diabetes mellitus with hyperglycemia (ICD-10 - E11.65) [facility] Other 11-06-2023 Evaluation note* Encounter Date Diagnosis [...] Discussed can start famotidine PRN breakthrough GERD [facility] Other 10-02-2023 Evaluation note* Encounter Date Diagnosis Assessment Notes Treatment Notes Treatment Clinical Notes Jan, Primary insomnia (ICD-10 - F51.01) [facility] Other 09-11-2023 Evaluation note* Encounter Date Diagnosis Assessment Notes Treatment Notes Treatment Clinical Notes Dec, Type 2 diabetes mellitus with hyperglycemia (ICD-10 - E11.65) Managing type 2 diabetes material was published 1. Controlled, Type 2 diabetes with A1c 6.3% 2. Blood glucose levels improved. According to [facility] [employer] cgm download 12/25/2022- 3: Avg glucose 156. 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, FDC current use of insulin (ICD-10 - Z79.4) [...] to make it easier material was published [facility] Other 09-06-2023 Evaluation note* Encounter Date Diagnosis Assessment Notes Treatment Notes Treatment Clinical Notes Dec, Esophageal stricture (ICD-10 - K22.2) Dec, Dysphagia (ICD-10 - R13.10) Patient has a narrow esophagus but is improving Patient is to continue omeprazole daily [facility] Other 09-01-2023 Evaluation note* Encounter Date Diagnosis Assessment Notes Treatment Notes Treatment Clinical Notes Dec, Primary insomnia (ICD-10 - F51.01) [facility] Other 08-22-2023 Evaluation note* Encounter Date Diagnosis Assessment Notes Treatment Notes Treatment Clinical Notes Nov, Primary insomnia (ICD-10 - F51.01) [facility] Other 08-02-2023 Evaluation note* Encounter Date Diagnosis [...] reviewed and amended by provider signed below. [facility] Other 07-11-2023 Evaluation note* Encounter Date Diagnosis Assessment Notes Treatment Notes Treatment Clinical Notes Oct, Primary insomnia (ICD-10 - F51.01) [facility] Other 06-01-2023 Evaluation note* Encounter Date Diagnosis Assessment Notes Treatment Notes Treatment Clinical Notes Sep, Type 2 diabetes mellitus with hyperglycemia (ICD-10 - E11.65) Managing type 2 diabetes material was published 1. Controlled, Type 2 diabetes with A1c 6.6% 2. Blood glucose levels improved. According to [facility] [employer] cgm download 09/13/2022- 3: Avg glucose 151. 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, ad terminal makeup operator current use of insulin (ICD-10 - Z79.4) Sep, Peripheral neuropathy (ICD-10 - G62.9) Living with peripheral neuropathy material was published Sep, Vitamin B 12 deficiency (ICD-10 - E53.8) Good food sources of vitamin B12 material was published 08/2022 Vit b12 392 at target Sep, BMI 29.0-29.9,adult (ICD-10 - Z68.29) Eating healthy: tips to make it easier material was published [facility] Other 05-15-2023 Evaluation note* Encounter Date Diagnosis Assessment Notes Treatment Notes Treatment Clinical Notes August, Primary hypertension (ICD-10 - I10) August, Type 2 diabetes mellitus with hyperglycemia (ICD-10 - E11.65) [facility] Other 04-13-2023 Evaluation note* Encounter Date Diagnosis [...] Due for LDCT for lung CA screening [facility] Other 04-10-2023 Evaluation note* Encounter Date Diagnosis Assessment Notes Treatment Notes Treatment Clinical Notes Jul, Primary insomnia (ICD-10 - F51.01) [facility] Other 03-08-2023 Evaluation note* Encounter Date Diagnosis Assessment Notes Treatment Notes Treatment Clinical Notes Jun, Primary insomnia (ICD-10 - F51.01) [facility] Other 02-21-2023 Evaluation note* Encounter Date Diagnosis Assessment Notes Treatment Notes Treatment Clinical Notes May, Type 2 diabetes mellitus with hyperglycemia (ICD-10 - E11.65) [facility] Other 02-20-2023 Evaluation note* Encounter Date Diagnosis Assessment Notes Treatment Notes Treatment Clinical Notes May, Type 2 diabetes mellitus with hyperglycemia (ICD-10 - E11.65) Managing type 2 diabetes material was published 1. Uncontrolled, Type 2 diabetes with A1c 7.1% 2. Blood glucose levels improved. According to [facility] [employer] cgm download 06/04/2022-06/17/2022 : Avg glucose 180. [...] hypertension material was published on [facility] May, ad terminal makeup operator current use of insulin (ICD-10 - Z79.4) May, Peripheral neuropathy (ICD-10 - G62.9) Living with peripheral neuropathy material was published May, Vitamin B 12 deficiency (ICD-10 - E53.8) Good food sources of vitamin B12 material was published 08/2021 Vit b12 368 at target May, BMI 35.0-35.9,adult (ICD-10 - Z68.35) Setting weight-loss goals material was published [facility] Other 02-06-2023 Evaluation note* Encounter Date Diagnosis Assessment Notes Treatment Notes Treatment Clinical Notes May, Primary insomnia (ICD-10 - F51.01) [facility] Other 01-26-2023 Evaluation note* Encounter Date Diagnosis Assessment Notes Treatment Notes Treatment Clinical Notes Apr, Hyperlipidemia (ICD-10 - E78.5) [facility] Other 12-06-2022 Evaluation note* Encounter Date Diagnosis Assessment Notes Treatment Notes Treatment Clinical Notes Mar, Type 2 diabetes mellitus with hyperglycemia (ICD-10 - E11.65) [facility] Other 10-19-2022 Evaluation note* Encounter Date Diagnosis Assessment Notes Treatment Notes Treatment Clinical Notes Jan, Primary hypertension (ICD-10 - I10) [facility] Other 09-13-2022 Evaluation note* Encounter Date Diagnosis Assessment Notes Treatment Notes Treatment Clinical Notes Dec, Type 2 diabetes mellitus with hyperglycemia (ICD-10 - E11.65) Managing type 2 diabetes material was published 1. Uncontrolled, Type 2 diabetes with A1c 7.7% 2. Blood glucose levels above target. According to [facility] [employer] cgm download 12/26/2021- 2: Avg glucose 211. [...] pen given. Sent order for toujeo to [employer]. Dec, Dietary counseling and surveillance (ICD-10 - Z71.3) Eat well, exercise well, be well: dietary and fitness guidelines material was published Dec, Hyperlipidemia (ICD-10 - E78.5) Managing your cholesterol material was published 08/2021 ldl 68- at target. 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, FDC current use of insulin (ICD-10 - Z79.4) [...] last visit, continue with weight loss efforts [facility] Other 08-17-2022 Progress note Author [facility] December 13, 2021 8:52am Note Date/Time December 13, 2021 8: 52am [facility] [address] [place] [address] General Surgery Progress Note Signed Patient: Taye Gay MR#: [id number] : 1955 Acct:[id number] Age/Sex: 66 / F Adm Date: 2 Loc: Room: [address] [place] [address] Type: ADM Marmolejo Attending Dr: Wilmer Vance [...] Mg Tablet.) 81 mg PO DAILY [facility] Stop: 12/10/22 08:59 Last Admin: 12/12/21 10:33 Dose: Not Given Atorvastatin Calcium (Atorvastatin 10 Mg Tablet) 10 mg PO DAILY [facility] Stop: 12/10/22 08:59 Last Admin: 12/12/21 10:33 Dose: Not Given Cyanocobalamin (Cyanocobalamin 1,000 Mcg Tablet) 1,000 mcg PO DAILY [facility] Stop: 12/13/22 08:59 Dextrose (Dextrose 50% In Water 25 Gm/50 Ml Syringe) 0 gm IV-PUSH PRN PRN PRN Reason: Hypoglycemia Stop: 12/09/22 11:18 Docusate Sodium (Docusate 100 Mg Capsule) 100 mg PO TID [facility] Stop: 12/12/22 21:59 Last Admin: 12/12/21 22:26 Dose: 100 mg Enoxaparin Sodium (Enoxaparin 40 Mg/0.4 Ml Syringe) 40 mg SUBCUT DAILY@10 [facility] Stop: 12/10/22 09:59 Last Admin: 12/12/21 10:33 [...] mls @ 100 mls/hr IV Q24H [facility] Last Admin: 12/12/21 11:57 Dose: 100 mls/hr Sodium Chloride (0.9% Sodium Chloride 1,000 Ml) 1,000 mls @ 100 mls/hr IV .[id number] Stop: 12/12/22 00:00 Last Infusion: 12/13/21 03:35 Dose: Infused Lactated Ringer's (Lactated Ringers) 1,000 mls @ 20 mls/hr IV .Q24H ONE Stop: 12/13/21 11:13 Last Infusion: 12/13/21 03:31 Dose: Infused Insulin Aspart (Insulin Aspart 300 Units/3 Ml Insuln.Pen) 0 units SUBCUT TID.WM.[facility]; Protocol Stop: 12/09/22 11:59 Last Admin: 12/13/21 08:07 Dose: 4 units Nortriptyline HCl (Nortriptyline 25 Mg Capsule) 50 mg PO BID [facility] Stop: 12/09/22 20:59 Last Admin: 12/12/21 22:27 Dose: 50 mg Omeprazole (Omeprazole 20 Mg Capsule.Dr) 20 mg PO DAILY [facility] Stop: 12/10/22 08:59 Last Admin: 12/12/21 10:33 Dose: Not Given Ondansetron HCl (Ondansetron 4 Mg/2 Ml Vial) 4 mg IV-PUSH Q6H PRN PRN Reason: Nausea And Vomiting Stop: 12/12/22 18:19 Pioglitazone HCl (Pioglitazone 15 Mg Tablet) 15 mg PO DAILY [facility] Stop: 12/10/22 08:59 Last Admin: 12/12/21 10:33 [...] IV-PUSH PRN PRN PRN Reason: Flush Stop: 08/16/23 11:13 Temazepam (Temazepam 15 Mg Capsule) 30 [...] % (Auto) 90.4, Lymph % (Auto) 7.7, [place] % (Auto) 1.8, Eos % (Auto) 0.0, Baso % (Auto) 0.1, Neut # (Auto) 8.5 H, Lymph # (Auto) 0.7 L, [place] # (Auto) 0.2, Eos # (Auto) 0.0, [...] % (Auto) 72.7, Lymph % (Auto) 16.1, [place] % (Auto) 8.8, Eos % (Auto) 2.1, Baso % (Auto) 0.3, Neut # (Auto) 5.3, Lymph # (Auto) 1.2, [place] # (Auto) 0.6, Eos# (Auto) 0.2, Baso [...] % (Auto) 66.8, Lymph % (Auto) 21.0, [place] % (Auto) 9.2, Eos % (Auto) 2.6, Baso % (Auto) 0.4, Neut # (Auto) 4.1, Lymph # (Auto) 1.3, [place] # (Auto) 0.6, Eos # (Auto) 0.2, [...] signed by DO Walter Montgomery> 12/13/21 0852 [facility] Work Phone: [phone] Progress note Author [facility] December 12, 2021 8:43pm Note Date/Time December 12, 2021 2: 49pm [facility] [address] [place] [address] Urology Progress Note Signed Patient: Taye Gay MR#: [id number] : 1955 Acct:[id number] Age/Sex: 66 / F Adm Date: 2 Loc: Room: [address] [place] [address] Type: ADM INOo Attending Dr: Arleen Stephen [...] % (Auto) 72.7, Lymph % (Auto) 16.1, [place] % (Auto) 8.8, Eos % (Auto) 2.1, Baso % (Auto) 0.3, Neut # (Auto) 5.3, Lymph # (Auto) 1.2, [place] # (Auto) 0.6, Eos# (Auto) 0.2, Baso [...] % (Auto) 66.8, Lymph % (Auto) 21.0, [place] % (Auto) 9.2, Eos % (Auto) 2.6, Baso % (Auto) 0.4, Neut # (Auto) 4.1, Lymph # (Auto) 1.3, [place] # (Auto) 0.6, Eos # (Auto) 0.2, [...] <Electronically signed by Teresa Strong MD> 12/12/212042 [facility] Work Phone: [phone] 152-620308-16-2022 Progress note Author [facility] December 12, 2021 1:20pm Note Date/Time December 12, 2021 1: 20pm [facility] [address] [place] [address] Hospitalist Progress Note Signed Patient: Taye Gay MR#: [id number] : 1955 Acct:[id number] Age/Sex: 66 / F Adm Date: 2 Loc: Room: [address] [place] [address] Type: ADM INOo Attending Dr: Arleen Stephen [...] prophylaxis Documented By: Arleen Stephen MD 12/12/21 1314 Signed By: <Electronically signed by Arleen Stephen MD> 12/12/21 1326 [facility] Work Phone: [phone] Progress note Author [facility] December 12, 2021 8:07am Note Date/Time December 12, 2021 8: 07am [facility] [address] [place] [address] General Surgery Progress Note Signed Patient: Taye Gay MR#: [id number] : 1955 Acct:[id number] Age/Sex: 66 / F Adm Date: 2 Loc: Room: [address] [place] [address] Type: ADM INOo Attending Dr: Arleen Stephen [...] Mg Tablet.) 81 mg PO DAILY [facility] Stop: 12/10/22 08:59 Last Admin: 12/11/21 08:00 Dose: 81 mg Atorvastatin Calcium (Atorvastatin 10 Mg Tablet) 10 mg PO DAILY [facility] Stop: 12/10/22 08:59 Last Admin: 12/11/21 08:00 Dose: 10 mg Dextrose (Dextrose 50% In Water 25 Gm/50 Ml Syringe) 0 gm IV-PUSH PRN PRN PRN Reason: Hypoglycemia Stop: 12/09/22 11:18 Enoxaparin Sodium (Enoxaparin 40 Mg/0.4 Ml Syringe) 40 mg SUBCUT DAILY@10 [facility] Stop: 12/10/22 09:59 Last Admin: 12/11/21 09:19 [...] mls @ 100 mls/hr IV Q24H [facility] Last Infusion: 12/11/21 10:15 Dose: Infused Sodium Chloride (0.9% Sodium Chloride 1,000 Ml) 1,000 mls @ 100 mls/hr IV .[id number] Stop: 12/12/22 00:00 Last Admin: 12/12/21 00:10 Dose: 100 mls/hr Insulin Aspart (Insulin Aspart 300 Units/3 Ml Insuln.Pen) 0 units SUBCUT TID.WM.HS [facility]; Protocol Stop: 12/09/22 11:59 Last Admin: 12/11/21 21:21 Dose: 3 units Nortriptyline HCl (Nortriptyline 25 Mg Capsule) 50 mg PO BID [facility] Stop: 12/09/22 20:59 Last Admin: 12/11/21 21:20 Dose: 50 mg Omeprazole (Omeprazole 20 Mg Capsule.Dr) 20 mg PO DAILY [facility] Stop: 12/10/22 08:59 Last Admin: 12/11/21 08:00 Dose: 20 mg Ondansetron HCl (Ondansetron 4 Mg/2 Ml Vial) 4 mg IV-PUSH Q8H PRN PRN Reason: Nausea And Vomiting Stop: 12/09/22 11:18 Pioglitazone HCl (Pioglitazone 15 Mg Tablet) 15 mg PO DAILY [facility] Stop: 12/10/22 08:59 Last Admin: 12/11/21 08:00 [...] Mg Capsule) 30 mg PO QHS [facility] Stop: 12/09/22 21:59 Last Admin: 12/11/21 21:20 [...] % (Auto) 66.8, Lymph % (Auto) 21.0, [place] % (Auto) 9.2, Eos % (Auto) 2.6, Baso % (Auto) 0.4, Neut # (Auto) 4.1, Lymph # (Auto) 1.3, [place] # (Auto) 0.6, Eos # (Auto) 0.2, [...] signed by DO Walter Montgomery> 12/12/21 0807 [facility] Work Phone: [phone] Consult note Author [facility] December 11, 2021 9:25pm Note Date/Time December 11, 2021 8: 10pm [facility] [address] [place] [address] Urology Consult Note Signed Patient: Taye Gay MR#: [id number] : 1955 Acct:[id number] Age/Sex: 66 / F Adm Date: 2 Loc: Room: [address] [place] [address] Type: ADM INOo Attending Dr: Arleen Stephen [...] % (Auto) 66.8, Lymph % (Auto) 21.0, [place] % (Auto) 9.2, Eos % (Auto) 2.6, Baso % (Auto) 0.4, Neut # (Auto) 4.1, Lymph # (Auto) 1.3, [place] # (Auto) 0.6, Eos # (Auto) 0.2, [...] % (Auto) 63.3, Lymph % (Auto) 24.1, [place] % (Auto) 10.5, Eos % (Auto) 1.8, Baso % (Auto) 0.3, Neut # (Auto) 4.7, Lymph # (Auto) 1.8, [place] # (Auto) 0.8, Eos # (Auto) 0.1, [...] <Electronically signed by Teresa Strong MD> 12/11/21 2153 [facility] Work Phone: [phone] Consult note Author [facility] December 11, 2021 3:18pm Note Date/Time December 11, 2021 3: 18pm [facility] [address] [place] [address] General Surgery Consult Note Signed Patient: Taye Gay MR#: [id number] : 1955 Acct:[id number] Age/Sex: 66 / F Adm Date: 2 Loc: Room: [address] [place] [address] Type: ADM INOo Attending Dr: Arleen Stephen [...] 12/09/21] insulin lispro 100 unit/mL subcutaneous pen ([facility] U-100 Insulin lispro) 1 sliding [...] Mg Tablet.Dr) 81 mg PO DAILY [facility] Stop: 12/10/22 08:59 Last Admin: 12/11/21 08:00 Dose: 81 mg Atorvastatin Calcium (Atorvastatin 10 Mg Tablet) 10 mg PO DAILY [facility] Stop: 12/10/22 08:59 Last Admin: 12/11/21 08:00 [...] mls @ 100 mls/hr IV Q24H [facility] Last Infusion: 12/11/21 10:15 Dose: Infused Insulin Aspart (Insulin Aspart 300 Units/3 Ml Insuln.Pen) 0 units SUBCUT TID.WM.[facility]; Protocol Stop: 12/09/22 11:59 Last Admin: 12/11/21 11:33 Dose: 3 units Nortriptyline HCl (Nortriptyline 25 Mg Capsule) 50 mg PO BID [facility] Stop: 12/09/22 20:59 Last Admin: 12/11/21 08:00 Dose: 50 mg Omeprazole (Omeprazole 20 Mg Capsule.Dr) 20 mg PO DAILY [facility] Stop: 12/10/22 08:59 Last Admin: 12/11/21 08:00 Dose: 20 mg Ondansetron HCl (Ondansetron 4 Mg/2 Ml Vial) 4 mg IV-PUSH Q8H PRN PRN Reason: Nausea And Vomiting Stop: 12/09/22 11:18 Pioglitazone HCl (Pioglitazone 15 Mg Tablet) 15 mg PO DAILY [facility] Stop: 12/10/22 08:59 Last Admin: 12/11/21 08:00 [...] Mg Capsule) 30 mg PO QHS [facility] Stop: 12/09/22 21:59 Last Admin: 12/10/21 21:14 [...] % (Auto) 66.8, Lymph % (Auto) 21.0, [place] % (Auto) 9.2, Eos % (Auto) 2.6, Baso % (Auto) 0.4, Neut # (Auto) 4.1, Lymph # (Auto) 1.3, [place] # (Auto) 0.6, Eos# (Auto) 0.2, Baso [...] % (Auto) 63.3, Lymph % (Auto) 24.1, [place] % (Auto) 10.5, Eos % (Auto) 1.8, Baso % (Auto) 0.3, Neut # (Auto) 4.7, Lymph # (Auto) 1.8, [place] # (Auto) 0.8, Eos # (Auto) 0.1, [...] % (Auto) 79.8, Lymph % (Auto) 9.6, [place] % (Auto) 9.1, Eos % (Auto)1.1, Baso % (Auto) 0.4, Neut # (Auto) 10.3 H, Lymph # (Auto) 1.2, [place] # (Auto) 1.2 H, Eos # (Auto) 0.1, Baso # (Auto) 0.1, Nucleated RBC % (auto) 0.0 12/09/21 08:35: Urine Color Yellow, Urine Appearance Cloudy A, Urine pH 5.5, Ur Specific [place] 1.030, Urine Protein Negative, Urine Glucose (UA) [...] <Electronically signed by DO Walter Montgomery> 12/11/[address] [place] [address] Ctr Work Phone: [phone]) 194-215008-15-2022 Progress note Author [facility] December 11, 2021 1:33pm Note Date/Time December 11, 2021 1: 30pm [facility] [address] [place] [address] Hospitalist Progress Note Signed Patient: Taye Gay MR#: [id number] : 1955 Acct:[id number] Age/Sex: 66 / F Adm Date: 2 Loc: Room: [address] [place] [address] Type: ADM INOo Attending Dr: Arleen Stephen [...] 09:00 12/11/21 08:00 Aspirin 81 Mg Tablet.Dr MINOR 12/10/22 08:59 81 mg DAILY PARMJIT Administration [...] signed by Arleen Stephen MD> 12/11/21 1333 [facility] Work Phone: [phone] Progress note Author [facility] December 10, 2021 11:26am Note Date/Time December 10, 2021 11 :26am [facility] [address] [place] [address] Hospitalist Progress Note Signed Patient: Taye Gay MR#: [id number] : 1955 Acct:[id number] Age/Sex: 66 / F Adm Date: 2 Loc: Room: [address] [place] [address] Type: ADM IN Attending Dr: Arleen Stephen [...] 1,000 Ml IV 12/09/22 11:29 75 mls/hr .[id number] PARMJIT Administration Ceftriaxone Sodium 1 gm in [...] signed by Arleen Stephen MD> 12/10/21 1126 [facility] Work Phone: [phone] History and physical note Author [facility] December 09, 2021 11:38am Note Date/Time December 09, 2021 11 :38am [facility] [address] [place] [address] Hospitalist H&P Signed Patient: Taye Gay MR#: [id number] : 1955 Acct:[id number] Age/Sex: 66 / F Adm Date: 2 Loc: ER Room: Type: [facility] ER Attending Dr: Copies to: NON [...] 02/09/21] insulin lispro 100 unit/mL subcutaneous pen ([facility] U-100 Insulin lispro) 1 sliding [...] % (Auto) 9.6 % (.) 12/09/21 08:50 [place] % (Auto) 9.1 % (.) 12/09/21 08:50 Eos % (Auto) 1.1 % (.) 12/09/21 08:50 Baso % (Auto) 0.4 % (.) 12/09/21 08:50 Neut # (Auto) 10.3 x10E3/uL (1.8-7.7) H 12/09/21 08:50 Lymph # (Auto) 1.2 x10E3/uL (1.00-4.8) 12/09/21 08:50 [place] # (Auto) 1.2 x10E3/uL (0.0-0.8) H 12/09/21 [...] pH 5.5 (5.0-9.0) 12/09/21 08:35 Ur Specific [place] 1.030 (1.001-1.030) 12/09/21 08:35 Urine Protein Negative [...] signed by Arleen Stephen MD> 12/09/21 1138 [facility] Work Phone: [phone] 917-665806-16-2022 Evaluation note* Encounter Date Diagnosis Assessment Notes Treatment Notes Treatment Clinical Notes Sep, Medicare annual wellness visit, initial (ICD-10 - Z00.00) Personalized health advice was given to the beneficiary including a written plan for screenings discussed and provided. Advanced care planning reviewed and/or information given as requested. The above visit was performed by Loren Denise LPN, IV-CC, under direct supervision of Dr. Crispin Looney DO. Document reviewed and amended by provider signed below. Patient denies any complaints or concerns today. Denies any symptoms of shortness of breath, chest pains, palpitations. Reports good exercise tolerance overall. She does see [facility] for management of her [...] to get her started back on this. [employer] Other 03-14-2022 Evaluation note* Encounter Date Diagnosis Assessment Notes Treatment Notes Treatment Clinical Notes Jun, Type 2 diabetes mellitus with hyperglycemia (ICD-10 - E11.65) Managing type 2 diabetes material was published 1. Controlled, Type 2 diabetes with A1c 6% 2. Blood glucose levels improved. According to [facility] [employer] cgm download 06/26/2021- 2: Avg glucose 132. 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 Limon [employer] Other 03-07-2022 Evaluation note* Encounter Date Diagnosis [...] apnea would also be evaluated if needed [employer] Other 01-10-2022 Evaluation note* Encounter Date Diagnosis [...] Reglan to see how she does. Apr, FDC (current) use of insulin (ICD-10 - Z79.4) Apr, Other Patient sees Dr Kenisha Castro and is up-to-date on Paps and mammograms. She did have a colonoscopy done 5 years ago and states it was normal and she is due in 5 more years. I discussed other preventative measures such as vaccines but the patient is not at all interested in any vaccines. [employer] Other 12-14-2021 Evaluation note* Encounter Date Diagnosis Assessment Notes Treatment Notes Treatment Clinical Notes Mar, Type 2 diabetes mellitus with hyperglycemia (ICD-10 - E11.65) [employer] Other 12-06-2021 Evaluation note* Encounter Date Diagnosis [...] Pain in left leg (ICD-10 - M79.605) [employer] Other 11-29-2021 Evaluation note* Encounter Date Diagnosis Assessment Notes Treatment Notes Treatment Clinical Notes Feb, Type 2 diabetes mellitus with hyperglycemia (ICD-10 - E11.65) Managing type 2 diabetes material was published 1. Controlled, Type 2 diabetes with A1c 6.9% 2. Blood glucose levels according to [facility] cgm download 03/14/2021- 021: Avg glucose 167. [...] hypertension material was published [employer]. 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 [employer] Other Chief complaint+Reason for visit Narrative* Reason for Visit [id number] Dietary counseling and surveillance Hyperlipidemia Hypertension Insulin long-term use Peripheral neuropathy Type 2 diabetes mellitus Vitamin B [address] [facility] Work Phone: Consult note Author [facility] December 11, 2021 3:18pm Note Date/Time December 11, 2021 3: 18pm [facility] [address] [place] [address] General Surgery Consult Note Signed Patient: Taye Gay MR#: [id number] : 1955 Acct:[id number] Age/Sex: 66 / F Adm Date: 2 Loc: Room: [address] [place] [address] Type: ADM INOo Attending Dr: Arleen Stephen [...] insulin lispro 100 unit/mL subcutaneous pen [facility]) 1 sliding scale [...] Mg Tablet.) 81 mg PO DAILY [facility] Stop: 12/10/22 08:59 Last Admin: 12/11/21 08:00 Dose: 81 mg Atorvastatin Calcium (Atorvastatin 10 Mg Tablet) 10 mg PO DAILY [facility] Stop: 12/10/22 08:59 Last Admin: 12/11/21 08:00 Dose: 10 mg Dextrose (Dextrose 50% In Water 25 Gm/50 Ml Syringe) 0 gm IV-PUSH PRN PRN PRN Reason: Hypoglycemia Stop: 12/09/22 11:18 Enoxaparin Sodium (Enoxaparin 40 Mg/0.4 Ml Syringe) 40 mg SUBCUT DAILY@10 [facility] Stop: 12/10/22 09:59 Last Admin: 12/11/21 09:19 [...] mls @ 100 mls/hr IV Q24H [facility] Last Infusion: 12/11/21 10:15 Dose: Infused Insulin Aspart (Insulin Aspart 300 Units/3 Ml Insuln.Pen) 0 units SUBCUT TID.[facility]; Protocol Stop: 12/09/22 11:59 Last Admin: 12/11/21 11:33 Dose: 3 units Nortriptyline HCl (Nortriptyline 25 Mg Capsule) 50 mg PO BID [facility] Stop: 12/09/22 20:59 Last Admin: 12/11/21 08:00 Dose: 50 mg Omeprazole (Omeprazole 20 Mg Capsule.Dr) 20 mg PO DAILY [facility] Stop: 12/10/22 08:59 Last Admin: 12/11/21 08:00 Dose: 20 mg Ondansetron HCl (Ondansetron 4 Mg/2 Ml Vial) 4 mg IV-PUSH Q8H PRN PRN Reason: Nausea And Vomiting Stop: 12/09/22 11:18 Pioglitazone HCl (Pioglitazone 15 Mg Tablet) 15 mg PO DAILY [facility] Stop: 12/10/22 08:59 Last Admin: 12/11/21 08:00 [...] Mg Capsule) 30 mg PO QHS [facility] Stop: 12/09/22 21:59 Last Admin: 12/10/21 21:14 [...] % (Auto) 66.8, Lymph % (Auto) 21.0, [place] % (Auto) 9.2, Eos % (Auto) 2.6, Baso % (Auto) 0.4, Neut # (Auto) 4.1, Lymph # (Auto) 1.3, [place] # (Auto) 0.6, Eos# (Auto) 0.2, Baso [...] % (Auto) 63.3, Lymph % (Auto) 24.1, [place] % (Auto) 10.5, Eos % (Auto) 1.8, Baso % (Auto) 0.3, Neut # (Auto) 4.7, Lymph # (Auto) 1.8, [place] # (Auto) 0.8, Eos # (Auto) 0.1, [...] % (Auto) 79.8, Lymph % (Auto) 9.6, [place] % (Auto) 9.1, Eos % (Auto)1.1, Baso % (Auto) 0.4, Neut # (Auto) 10.3 H, Lymph # (Auto) 1.2, [place] # (Auto) 1.2 H, Eos # (Auto) 0.1, Baso # (Auto) 0.1, Nucleated RBC % (auto) 0.0 12/09/21 08:35: Urine Color Yellow, Urine Appearance Cloudy A, Urine pH 5.5, Ur Specific [place] 1.030, Urine Protein Negative, Urine Glucose (UA) [...] <Electronically signed by DO Walter Montgomery> 12/11/211517 [facility] Work Phone: Consult note Author [facility] December 11, 2021 9:25pm Note Date/Time December 11, 2021 8: 10pm [facility] [address] [place] [address] Urology Consult Note Signed Patient: Taye Gay MR#: [id number] : 1955 Acct:[id number] Age/Sex: 66 / F Adm Date: 2 Loc: Room: [address] [place] [address] Type: ADM INOo Attending Dr: Arleen Stephen [...] % (Auto) 66.8, Lymph % (Auto) 21.0, [place] % (Auto) 9.2, Eos % (Auto) 2.6, Baso % (Auto) 0.4, Neut # (Auto) 4.1, Lymph # (Auto) 1.3, [place] # (Auto) 0.6, Eos # (Auto) 0.2, [...] % (Auto) 63.3, Lymph % (Auto) 24.1, [place] % (Auto) 10.5, Eos % (Auto) 1.8, Baso % (Auto) 0.3, Neut # (Auto) 4.7, Lymph # (Auto) 1.8, [place] # (Auto) 0.8, Eos # (Auto) 0.1, [...] MD 12/11/212009 Signed By: <Electronically signed by Treesa Strong MD> 12/11/21 2600 [facility] Work Phone: Consult note Author [facility] Note Date/Time April 29, 2024 11 :07am [facility] [address] [place] [address] Neurology Consult Note Signed Patient: Taye Gay MR#: [id number] : 1955 Acct:[id number] Age/Sex: 68 / F Adm Date: 4 Loc: 3T Room: 9A2484-7 Type: ADM IN Attending Dr: Priscilla Lang MD Copies to: DO Sandra Garrido DO Rafik Massouh, MD~ HPI Consult Date: 04/29/24 Software Sales Executive: Lit Clark DO Reason for consult: Slurred [...] negative unless noted below or in HPI [facility] Medical History BMI 32.0-32.9,adult Abnormal thyroid blood [...] (Stool Softener) 100 mg PO DAILY PRN [id number]/14/24 [History Confirmed 04/28/24] multivitamin 1 tab PO DAILY 06/12/23 [History Confirmed 04/28/24] pen needle, diabetic [Sure-Fine Pen [place]] 06/12/23 [History Confirmed 04/28/24] metformin 500 mg [...] Oz Bowling M.D.04/28/2024 9:46 PM Dictation Location: [place] [address] 04/28/24 19:44 IMPRESSION: No acute intracranial pathology. No evidence of focal stenosis, aneurysmal dilatation, dissection or occlusion. Impression dictated by: Oz Bowling M.D.04/28/2024 9:44 PM Dictation Location: [place] [address] Assessment/Plan (1) Atrial fibrillation: Qualifiers: Atrial fibrillation [...] may be metabolic in nature and not manufacturer representative necessarily of transient ischemia or of [...] [id number] Signed By: <Electronically signed by Lti Clark DO> 04/29/[address] [place] [address] Ctr Work Phone: Discharge summary Author [facility] December 13, 2021 1:58pm Note Date/Time December 13, 2021 1: 58pm [facility] [address] [place] [address] Discharge Summary Signed Patient: Taye Gay MR#: [id number] : 1955 Acct:[id number] Age/Sex: 66 / F Adm Date: 2 Loc: Room: [address] [place] [address]: Wilmer Vance MD Copies to: [...] % (Auto) 90.4, Lymph % (Auto) 7.7, [place] % (Auto) 1.8, Eos % (Auto) 0.0, Baso % (Auto) 0.1, Neut # (Auto) 8.5 H, Lymph # (Auto) 0.7 L, [place] # (Auto) 0.2,Eos # (Auto) 0.0, Baso [...] scheduled appointment Instructions: Cholecystectomy, Laparoscopic Surgery, Acetaminophen, Cefuroxime,[facility] Catheter Care at Home [...] <Electronically signed by Wilmer Vance MD> 12/13/21 1358 [facility] Work Phone: Discharge summary Author [facility]va [facility] September 15, 2023 1:17am Note Date/Time September 14, 2023 2:20p m [facility] [address] [place] [address] Discharge Summary Signed Patient: Taye Gay MR#: [id number] : 1955 Acct:[id number] Age/Sex: 67 / F Adm Date: 4 Loc: 3T Room: [address] [place] [address]: Elva Florian MD Copies to: [...] .Route (DME) pen needle, diabetic [Sure-Fine Pen [place]] .Route (DME) FreeStyle Brent 14 Day Sensor [...] signed by Elva Florian MD> 09/15/23 0117 [facility] Work Phone: Discharge summary Author Priscilla [facility] Note Date/Time April 30, 2024 10 :28am [facility] [address] [place] [address] Discharge Summary Signed Patient: Taye Gay MR#: [id number] : 1955 Acct:[id number] Age/Sex: 68 / F Adm Date: 4 Loc: 3T Room: [address] [place] [address]: Priscilla Lang MD Copies to: [...] taking multiple medications that could potentially cause BLUEPRINTING AND PHOTOCOPY SUPERVISOR side effect and toxic encephalopathy. Diagnosis is [...] polypharmacy regimen to reduce her risk of BLUEPRINTING AND PHOTOCOPY SUPERVISOR side effects or drug?drug interaction. At this [...] ask her primary care doctor to obtain [facility] record entirely to address abnormalities seen [...] ask your primary care provider to obtain [facility] records entirely to follow up on [...] or having drug?drug interaction. Discharging you from [facility] does not mean that your medical [...] constipation) (DME) pen needle, diabetic [Sure-Fine Pen [place]] .Route lidocaine 5 % ointment 1 applic [...] % (Auto) 63.5, Lymph % (Auto) 24.9, [place] % (Auto) 8.3, Eos % (Auto) 2.9, Baso % (Auto) 0.4, Nucleat RBC Rel Count 0.0, Neut # (Auto) 4.6, Lymph # (Auto) 1.8, [place] # (Auto) 0.6, Eos # (Auto) 0.2, [...] signed by Priscilla Lang MD> 04/30/24 1028 [facility] Work Phone: evaluation noteNo [employer] Other Evaluation note* Diagnosis Onset Date Resolution Status Cholelithiasis acute Emphysematous cystitis acute Pyelonephritis acute Right lateral abdominal pain acute [facility] Work Phone: evaluation noteNo assessment information available [facility] Work Phone: evaluation note* Diagnosis Onset Date Resolution Status [id number] acute Dietary counseling and surveillance acute Hyperlipidemia acute Hypertension acute Insulin long-term use acute Peripheral neuropathy acute Type 2 diabetes mellitus acu te Vitamin B 12 deficiency acut e [facility] Work Phone: evaluation note* Diagnosis Onset Date Resolution Status BMI 28.0-28.9,adult acute [id number] acute Dietary counseling and surveillance acute Hyperlipidemia acute Hypertension acute Insulin long-term use acute Peripheral neuropathy acute Type 2 diabetes mellitus acu te Vitamin B 12 deficiency acut e [facility] Work Phone: evaluation note* Diagnosis Onset Date Resolution Status BMI 28.0-28.9,adult acute [id number] acute Dietary counseling and surveillance acute Hyperlipidemia acute Hypertension acute Insulin long-term use acute Peripheral neuropathy acute Type 2 diabetes mellitus acu te Vitamin B 12 deficiency acut e Dizziness acute Hypertension acute Primary insomnia acute Type 2 diabetes mellitus acu te [facility] Work Phone: Evaluation note* Diagnosis Onset Date Resolution Status BMI 28.0-28.9,adult acute [id number] acute Dietary counseling and surveillance acute Hyperlipidemia acute Hypertension acute Insulin long-term use acute Peripheral neuropathy acute Type 2 diabetes mellitus acu te Vitamin B 12 deficiency acut e Dizziness acute Hypertension acute Primary insomnia acute Type 2 diabetes mellitus acu te PAD (peripheral artery disease) acute [facility] Work Phone: Evaluation note* Diagnosis Onset Date Resolution Status PAD (peripheral artery disease) acute BMI 28.0-28.9,adult acute [id number] acute Dietary counseling and surveillance acute Hyperlipidemia acute Hypertension acute Peripheral neuropathy acute Tachycardia acute Type 2 diabetes mellitus acu te Vitamin B 12 deficiency acut e Atrial flutter with rapid ventricular response acute Chest pain acute Hyperlipidemia acute Hypertension acute New onset atrial flutter acu te Type 2 diabetes mellitus acu te [facility] Work Phone: Evaluation note* Diagnosis Onset Date Resolution Status PAD (peripheral artery disease) acute BMI 28.0-28.9,adult acute [id number] acute Dietary counseling and surveillance acute Hyperlipidemia [...] acu te Mobility impaired noneactive [facility] Work Phone: Evaluation note* Diagnosis Typical atrial flutter (Multi) Nonischemic cardiomyopathy (Multi) Other primary cardiomyopathies Hypertension, unspecified type Hypercholesteremia Pure hypercholesterolemia Smoker Tobacco use disorder Type 2 diabetes mellitus with other specified complication, unspecified whether vermin exterminator insulin use (Multi) BMI 28.0-28.9,adult documented in this encounter [facility] Work Phone: Evaluation note* Diagnosis Onset Date Resolution Status BMI 28.0-28.9,adult acute [id number] acute Dietary counseling and surveillance acute Hyperlipidemia [...] diabetes mellitus acu te Mobility impaired noneactive [facility] Work Phone: Evaluation note* Diagnosis Onset Date Resolution Status BMI 28.0-28.9,adult acute [id number] acute Dietary counseling and surveillance acute Hyperlipidemia [...] diabetes mellitus with hyperglycemia acute Weakness acute [facility] Work Phone: evaluation note* Diagnosis Onset Date Resolution Status BMI 28.0-28.9,adult acute [id number] acute Dietary counseling and surveillance acute Hyperlipidemia [...] B 12 deficiency acut e Weakness acute [facility] Work Phone: evaluation note* Diagnosis Onset Date Resolution Status BMI 28.0-28.9,adult acute [id number] acute Dietary counseling and surveillance acute Hyperlipidemia [...] acut e Weakness acute BMI 28.0-28.9,adult acute [id number] acute Dietary counseling and surveillance acute Hyperlipidemia acute Hypertension acute Peripheral neuropathy acute Type 2 diabetes mellitus [facility]u te [facility]* Diagnosis Onset Date Resolution Status BMI 28.0-28.9,adult acute [id number] acute Dietary counseling and surveillance acute Hyperlipidemia [...] thyroid blood test acute BMI 28.0-28.9,adult acute [id number] acute Dietary counseling and surveillance acute Hyperlipidemia acute Hypertension acute Peripheral neuropathy acute Type 2 diabetes mellitus acu te Vitamin B 12 deficiency acut [facility] Work Phone: Evaluation note* Diagnosis Onset Date Resolution Status BMI 28.0-28.9,adult acute [id number] acute Dietary counseling and surveillance acute Hyperlipidemia [...] thyroid blood test acute BMI 28.0-28.9,adult acute [id number] acute Dietary counseling and surveillance acute Hyperlipidemia acute Hypertension acute Peripheral neuropathy acute Type 2 diabetes mellitus acu te Vitamin B 12 deficiency acut e Hospital discharge follow-up acute Hypomagnesemia acute [facility] Work Phone: Evaluation note* Diagnosis Onset Date Resolution Status Ambulatory dysfunction acute Hypomagnesemia acute Hypothyroid acute Type 2 diabetes mellitus with hyperglycemia acute Vitamin B 12 deficiency acut e Weakness acute Abnormal thyroid blood test acute BMI 28.0-28.9,adult acute [id number] acute Dietary counseling and surveillance acute Hyperlipidemia acute Hypertension acute Peripheral neuropathy acute Type 2 diabetes mellitus acu te Vitamin B 12 deficiency acut e Hospital discharge follow-up acute Hypomagnesemia acute [facility] Work Phone: Evaluation note* Diagnosis Ulcer of right foot, limited to breakdown of skin (CMS/HCC)- Primary Blister of right foot, subsequent encounter 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) documented in this encounter [facility] HealthcareEvaluation note* Diagnosis Onset Date Resolution Status Ambulatory dysfunction acute Hypomagnesemia acute Hypothyroid acute Type 2 diabetes mellitus with hyperglycemia acute Vitamin B 12 deficiency acut e Weakness acute Abnormal thyroid blood test acute BMI 28.0-28.9,adult acute [id number] acute Dietary counseling and surveillance acute Hyperlipidemia acute Hypertension acute Peripheral neuropathy acute Type 2 diabetes mellitus acu te Vitamin B 12 deficiency acut e Hospital discharge follow-up acute Hypomagnesemia acute Weakness acute [facility] Work Phone: Evaluation note* Diagnosis Leg [...] atrial flutter (Multi) documented in this encounter [facility] Work Phone: Evaluation note* Diagnosis Lumbosacral [...] risk medication use documented in this encounter [facility] Work Phone: Evaluation note* Diagnosis Leg [...] encounter [facility] HealthcareEvaluation note* Diagnosis High risk medication use- Primary Typical atrial flutter (Multi) Nonischemic cardiomyopathy (Multi) Other primary cardiomyopathies Hypercholesteremia Pure hypercholesterolemia BMI 28.0-28.9,adult BMI 30.0-30.9,adult Current smoker documented in this encounter [facility] Work Phone: Evaluation note* Diagnosis Carpal tunnel syndrome, bilateral- Primary Carpal tunnel syndrome documented in this encounter [facility]* Diagnosis Ulcer of right foot, limited to breakdown of skin (CMS/HCC)- Primary Cellulitis of right foot documented in this encounter [facility] HealthcareEvaluation note* Diagnosis Ulcer of right foot, limited to breakdown of skin (CMS/HCC)- Primary Blister of right foot, initial encounter 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) documented in this encounter [facility] HealthcareEvaluation note* Diagnosis Typical atrial flutter (Multi)- Primary Nonischemic cardiomyopathy (Multi) Other primary cardiomyopathies Hypercholesteremia Pure hypercholesterolemia Hypertension, unspecified type BMI 32.0-32.9,adult Current smoker documented in this encounter [facility] Work Phone: Evaluation note* Diagnosis Leg [...] Granulocytosis Other elevated white blood cell count Cognitive decline- Primary Cervical paraspinal muscle spasm Spasm of muscle B12 deficiency Carpal tunnel syndrome, bilateral Carpal tunnel syndrome Guyon syndrome, unspecified laterality Neurogenic pain documented in this encounter [facility]* [...] Granulocytosis Other elevated white blood cell count Cognitive decline- Primary Cervical paraspinal muscle spasm Spasm of muscle B12 deficiency Carpal tunnel syndrome, bilateral Carpal tunnel syndrome Guyon syndrome, unspecified laterality Neurogenic pain Weakness of both lower extremities- Primary Carpal tunnel syndrome, bilateral Carpal tunnel syndrome Cognitive decline Cervical paraspinal muscle spasm Spasm of muscle B12 deficiency Guyon syndrome, unspecified laterality Numbness Disturbance of skin sensation Leg pain, left Pain in soft tissues of limb Leg pain, right Pain in soft tissues of limb Bilateral leg weakness Muscle weakness (generalized) documented [facility] encounter [facility]* [...] Granulocytosis Other elevated white blood cell count Cognitive decline- Primary Cervical paraspinal muscle spasm Spasm of muscle B12 deficiency Carpal tunnel syndrome, bilateral Carpal tunnel syndrome Guyon syndrome, unspecified laterality Neurogenic pain Weakness of both lower extremities- Primary Carpal tunnel syndrome, bilateral Carpal tunnel syndrome Cognitive decline Cervical paraspinal muscle spasm Spasm of muscle B12 deficiency Guyon syndrome, unspecified laterality Numbness Disturbance of skin sensation Leg pain, left Pain in soft tissues of limb Leg pain, right Pain in soft tissues of limb Bilateral leg weakness Muscle weakness (generalized) Ulcer of right foot with fat layer exposed (HCC)- Primary 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) Blister of right foot, initial encounter Deformity, foot, right documented in this encounter [facility]* [...] Granulocytosis Other elevated white blood cell count Cognitive decline- Primary Cervical paraspinal muscle spasm Spasm of muscle B12 deficiency Carpal tunnel syndrome, bilateral Carpal tunnel syndrome Guyon syndrome, unspecified laterality Neurogenic pain Weakness of both lower extremities- Primary Carpal tunnel syndrome, bilateral Carpal tunnel syndrome Cognitive decline Cervical paraspinal muscle spasm Spasm of muscle B12 deficiency Guyon syndrome, unspecified laterality Numbness Disturbance of skin sensation Leg pain, left Pain in soft tissues of limb Leg pain, right Pain in soft tissues of limb Bilateral leg weakness Muscle weakness (generalized) Neurogenic pain documented [facility]* [...] Granulocytosis Other elevated white blood cell count Cognitive decline- Primary Cervical paraspinal muscle spasm Spasm of muscle B12 deficiency Carpal tunnel syndrome, bilateral Carpal tunnel syndrome Guyon syndrome, unspecified laterality Neurogenic pain Weakness of both lower extremities- Primary Carpal tunnel syndrome, bilateral Carpal tunnel syndrome Cognitive decline Cervical paraspinal muscle spasm Spasm of muscle B12 deficiency Guyon syndrome, unspecified laterality Numbness Disturbance of skin sensation Leg pain, left Pain in soft tissues of limb Leg pain, right Pain in soft tissues of limb Bilateral leg weakness Muscle weakness (generalized) Ulcer of right foot with fat layer exposed (HCC)- Primary 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) Cellulitis of right foot Deformity of toe, right documented in this encounter [facility]* [...] Granulocytosis Other elevated white blood cell count Cognitive decline- Primary Cervical paraspinal muscle spasm Spasm of muscle B12 deficiency Carpal tunnel syndrome, bilateral Carpal tunnel syndrome Guyon syndrome, unspecified laterality Neurogenic pain Weakness of both lower extremities- Primary Carpal tunnel syndrome, bilateral Carpal tunnel syndrome Cognitive decline Cervical paraspinal muscle spasm Spasm of muscle B12 deficiency Guyon syndrome, unspecified laterality Numbness Disturbance of skin sensation Leg pain, left Pain in soft tissues of limb Leg pain, right Pain in soft tissues of limb Bilateral leg weakness Muscle weakness (generalized) Ulcer of right foot with fat layer exposed (HCC)- Primary 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) Abscess of right foot Cellulitis and abscess of foot, except toes At increased risk for emergency hospital admission documented in this encounter [facility] and physical note Author [facility] December 09, 2021 11:38am Note Date/Time December 09, 2021 11 :38am [facility] [address] [place] [address] Hospitalist H&P Signed Patient: Taye Gay MR#: [id number] : 1955 Acct:[id number] Age/Sex: 66 / F Adm Date: 2 Loc: ER Room: Type: [facility] ER Attending Dr: Copies to: NON [...] 02/09/21] insulin lispro 100 unit/mL subcutaneous pen ([facility] U-100 Insulin lispro) 1 sliding [...] % (Auto) 9.6 % (.) 12/09/21 08:50 [place] % (Auto) 9.1 % (.) 12/09/21 08:50 Eos % (Auto) 1.1 % (.) 12/09/21 08:50 Baso % (Auto) 0.4 % (.) 12/09/21 08:50 Neut # (Auto) 10.3 x10E3/uL (1.8-7.7) H 12/09/21 08:50 Lymph # (Auto) 1.2 x10E3/uL (1.00-4.8) 12/09/21 08:50 [place] # (Auto) 1.2 x10E3/uL (0.0-0.8) H 12/09/21 [...] pH 5.5 (5.0-9.0) 12/09/21 08:35 Ur Specific [place] 1.030 (1.001-1.030) 12/09/21 08:35 Urine Protein Negative [...] By: <Electronically signed by Arleen Stephen MD> 12/09/218 [facility] Work Phone: History and physical note Author [facility] November 10, 2023 6:20am Note Date/Time November 10, 2023 6:11 am [facility] [address] [place] [address] Hospitalist H&P Signed Patient: Taye Gay MR#: [id number] : 1955 Acct:[id number] Age/Sex: 67 / F Adm Date: 4 Loc: 4N Room: 3L2762-3 Type: ADM IN Attending Dr: Jluis Campos [...] negative unless noted below or in HPI [facility] Medical History History of esophageal stricture BMI [...] Father Heart disease [facility]: Diagnosed with Stroke Cancer throat heart [...] Confirmed 11/09/23] pen needle, diabetic [Sure-Fine Pen [place]] 06/12/23 [History Confirmed 11/09/23] omeprazole 20 mg [...] weaknesses were noted, patient unable to ambulate. Lkff-lx-tlgv test was normal. No tremors or ataxia with nbtzag-wh-hapn movements. Neuro: AOx3, CN II-VII intact. Moves [...] % (Auto) 26.0 % (.) 11/10/23 03:41 [place] % (Auto) 8.2 % (.) 11/10/23 03:41 Eos % (Auto) 3.7 % (.) 11/10/23 03:41 Baso % (Auto) 0.9 % (.) 11/10/23 03:41 Nucleat RBC Rel Count 0.1 /100 WBC (0-0.5) 11/10/23 03:41 Neut # (Auto) 5.2 x10E3/uL (1.8-7.7) 11/10/23 03:41 Lymph # (Auto) 2.2 x10E3/uL (1.00-4.8) 11/10/23 03:41 [place] # (Auto) 0.7 x10E3/uL (0.0-0.8) 11/10/23 03:41 [...] pH 6.0 (5.0-9.0) 11/10/23 05:02 Ur Specific [place] 1.007 (1.001-1.030) 11/10/23 05:02 Urine Protein Negative [...] a positive BEATRICE with her neurologist Dr. Codi oscar ? [...] signed by Jluis Campos DO> 11/10/23 0620 [facility] Work Phone: History and physical note Author [facility] Note Date/Time April 29, 2024 6: 39am [facility] [address] [place] [address] Hospitalist H&P Signed Patient: Taye Gay MR#: [id number] : 1955 Acct:[id number] Age/Sex: 68 / F Adm Date: 4 Loc: Room: [address] [place] [address] Type: ADM IN Attending Dr: Jori Hearn DO Copies to: DO Jori Daniels DO~ HPI DATE OF EXAMINATION: 04/29/24 [...] presence of WBCs, RBCs and rare yeast. Gisella provided 3 to 24 mg of aspirin [...] of dementia, possible Alzheimer's dementia -continue home [id number] mg twice daily and donepezil 20 mg daily 12. Atrial fibrillation - continue Eliquis 5 mg twice daily for anticoagulationand carvedilol 12.5 mg twice daily. EKG in ER shows NSR 13. Hypoxia - no respiratory distress or cardiopulmonary complaints to accompany this. Will monitor telemetry and address as needed [facility] Medical History BMI 32.0-32.9,adult Abnormal thyroid blood [...] (Stool Softener) 100 mg PO DAILY PRN qourudkalvdy97/14/24 [History Confirmed 04/28/24] multivitamin 1 tab PO DAILY 06/12/23 [History Confirmed 04/28/24] pen needle, diabetic [Sure-Fine Pen [place]] 06/12/23 [History Confirmed 04/28/24] metformin 500 mg [...] % (Auto) 24.6 % (.) 04/28/24 19:54 [place] % (Auto) 7.6 % (.) 04/28/24 19:54 Eos % (Auto) 2.7 % (.) 04/28/24 19:54 Baso % (Auto) 1.1 % (.) 04/28/24 19:54 Nucleat RBC Rel Count 0.2 /100 WBC (0-0.5) 04/28/24 19:54 Neut # (Auto) 6.5 x10E3/uL (1.8-7.7) 04/28/24 19:54 Lymph # (Auto) 2.5 x10E3/uL (1.00-4.8) 04/28/24 19:54 [place] # (Auto) 0.8 x10E3/uL (0.0-0.8) 04/28/24 19:54 [...] pH 5.5 (5.0-9.0) 04/28/24 22:02 Ur Specific [place] 1.038 (1.001-1.030) H 04/28/24 22:02 Urine Protein [...] stay (# of days): 3 Documented By: Jori Hearn DO 04/28/24 22 57 Signed By: <Electronically signed by Jori Hearn DO> 04/29/24 0639 [facility] Work Phone: History and physical note Author Manjit [facility] Note Date/Time September 10, 2024 12:41 pm [facility] [address] [place] [address] Gastroenterology H&P Signed Patient: Taye Gay MR#: [id number] : 1955 Acct:[id number] Age/Sex: 68 / F Adm Date: 5 Loc: Room: Type: [facility] Attending Dr: Manjit Gleason MD Copies to: Sandra Keita, DO Manjit Gleason MD~ Date of Service: 09/10/2024 HISTORY & PHYSICAL: Patient's history with special attention to the cardiovascular, pulmonary systems and the current problem was reviewed with the patient immediately prior to the procedure. Present medications and doses reviewed in the EMR. Allergies and pertinent laboratory tests were also reviewedat this time in the EMR. The physical examination, as below, was then performed. Indication, assessment and HPI: 68-year-old female here for EGD for evaluation of dysphagia Family history of GI malignancy? No PHYSICAL EXAMINATION General appearance: NAD Skin: No jaundice Head: NC/AT Eyes: Anicteric Neck: Supple Lungs: Normal respiratory effort, no use of accessory muscles Abdomen: nondistended Neuro: Ox3. REVIEW OF SYSTEMS Constitutional: Denies malaise, fevers Cardiovascular: Denies chest pain, palpitations Respiratory: Denies shortness of breath, wheezing Gastrointestinal: As per HPI Genitourinary: Denies dysuria, polyuria Musculoskeletal: Denies joint swelling, joint stiffness Neurological: Denies confusion, numbness, tingling Endocrine: Denies fatigue Written informed consent obtained from the patient. Risks (including but not limited to perforation, infection, bloating, bleeding, need for emergent surgeryand loss of life), benefits and alternatives explained and questions answered. The patient verbalized understanding. Based on history patient is an appropriate candidate for the procedure. Manjit Gleason M.D. Documented By: Manjit Gleason MD 09/10/24 1233 Signed By: <Electronically signed by Manjit Gleason MD> 09/10/24 1241 [facility] Work Phone: Hislviv general Narrative - Reported* Type Description Date Medical History HTN Medical History Diabetes Medical History Obesity Medical History HLP Medical History tonsillectomy Medical History hysterectomy Medical History Cataracts removed Bilateral Medical History Upper eye lift Surgical History tonsillectomy Surgical History hysterectomy Surgical History cataracts, bilaterally Surgical History eye lid surgery Surgical History removed cervix 12/2018 [facility] Other Hisgvzq general Narrative - Reported* Type Description Date Medical History HTN Medical History Diabetes Medical History Obesity Medical History HLP Medical History tonsillectomy Medical History hysterectomy Medical History Cataracts removed Bilateral Medical History Upper eye lift Surgical History tonsillectomy Surgical History hysterectomy Surgical History cataracts, bilaterally Surgical History eye lid surgery Surgical History removed cervix 12/2018 Hospitalization History See Above [facility] Other Hisprgh general Narrative - Reported* Type Description Date Medical History HTN Medical History Diabetes Medical History Obesity Medical History HLP Medical History tonsillectomy Medical History hysterectomy Medical History Cataracts removed Bilateral Medical History Upper eye lift Surgical History tonsillectomy Surgical History partial hysterectomy Surgical History cataracts, bilaterally Surgical History eye lid surgery--bilateral Surgical History removed cervix 12/2018 Hospitalization History See Above [facility] Other Hisufgq general Narrative - Reported* Type Description Date [...] History UTI and gallbladder jami yusef 11/2021 [facility] Other Hiszfdh general Narrative - Reported* Type Description Date [...] History UTI and gallbladder jami yusef 11/2021 [facility] Work Phone: [facility] Work Phone: [facility] instructions[facility] Work Phone: [facility] Work Phone: Hospital Discharge instructionsAmbulatory [...] - Care to be managed by PCP [facility] Work Phone: Hospital Discharge instructions Additional Instructions I may not have addressed or treated all of your medical illnesses or the abnormal blood work or imaging studies during this hospitalization. Please ask your primary care provider to obtain [facility] records entirely to follow up on [...] having drug drug interaction. Discharging you from [facility] does not mean that your medical care ends here and now. You may still need additional monitoring, work up, investigation, and treatment plan to be handled from this point on by out patient providers including your primary care provider and specialists. For any medication question, please contact your retail pharmacist or your primary care provider. Thank you.[facility] Work Phone: Hospital Discharge instructionsAmbulatory Orders* Referral to Pain Management Location: None Selected [facility] Work Phone: Progress note Author [facility] December 10, 2021 11:26am Note Date/Time December 10, 2021 11 :26am [facility] [address] [place] [address] Hospitalist Progress Note Signed Patient: Taye Gay MR#: [id number] : 1955 Acct:[id number] Age/Sex: 66 / F Adm Date: 2 Loc: Room: [address] [place] [address] Type: ADM IN Attending Dr: Arleen Stephen [...] 1,000 Ml IV 12/09/22 11:29 75 mls/hr .[id number] PARMJIT Administration Ceftriaxone Sodium 1 gm in [...] signed by Arleen Stephen MD> 12/10/21 1126 [facility] Work Phone: Progress note Author [facility] December 11, 2021 1:33pm Note Date/Time December 11, 2021 1: 30pm [facility] [address] [place] [address] Hospitalist Progress Note Signed Patient: Taye Gay MR#: [id number] : 1955 Acct:[id number] Age/Sex: 66 / F Adm Date: 2 Loc: Room: [address] [place] [address] Type: ADM INOo Attending Dr: Arleen Stephen [...] signed by Arleen Stephen MD> 12/11/21 1333 [facility] Work Phone: Progress note Author [facility] December 12, 2021 8:07am Note Date/Time December 12, 2021 8: 07am [facility] [address] [place] [address] General Surgery Progress Note Signed Patient: Taye Gay MR#: [id number] : 1955 Acct:[id number] Age/Sex: 66 / F Adm Date: 2 Loc: Room: [address] [place] [address] Type: ADM INOo Attending Dr: Arleen Stephen [...] Mg Tablet.) 81 mg PO DAILY [facility] Stop: 12/10/22 08:59 Last Admin: 12/11/21 08:00 [...] mls @ 100 mls/hr IV Q24H [facility] Last Infusion: 12/11/21 10:15 Dose: Infused Sodium Chloride (0.9% Sodium Chloride 1,000 Ml) 1,000 mls @ 100 mls/hr IV .[id number] Stop: 12/12/22 00:00 Last Admin: 12/12/21 00:10 Dose: 100 mls/hr Insulin Aspart (Insulin Aspart 300 Units/3 Ml Insuln.Pen) 0 units SUBCUT TID.WM.HS [facility]; Protocol Stop: 12/09/22 11:59 Last Admin: 12/11/21 21:21 Dose: 3 units Nortriptyline HCl (Nortriptyline 25 Mg Capsule) 50 mg PO BID [facility] Stop: 12/09/22 20:59 Last Admin: 12/11/21 21:20 Dose: 50 mg Omeprazole (Omeprazole 20 Mg Capsule.Dr) 20 mg PO DAILY [facility] Stop: 12/10/22 08:59 Last Admin: 12/11/21 08:00 Dose: 20 mg Ondansetron HCl (Ondansetron 4 Mg/2 Ml Vial) 4 mg IV-PUSH Q8H PRN PRN Reason: Nausea And Vomiting Stop: 12/09/22 11:18 Pioglitazone HCl (Pioglitazone 15 Mg Tablet) 15 mg PO DAILY [facility] Stop: 12/10/22 08:59 Last Admin: 12/11/21 08:00 [...] Mg Capsule) 30 mg PO QHS [facility] Stop: 12/09/22 21:59 Last Admin: 12/11/21 21:20 [...] % (Auto) 66.8, Lymph % (Auto) 21.0, [place] % (Auto) 9.2, Eos % (Auto) 2.6, Baso % (Auto) 0.4, Neut # (Auto) 4.1, Lymph # (Auto) 1.3, [place] # (Auto) 0.6, Eos # (Auto) 0.2, [...] Acute Documented By: Walter Montgomery DO 12/12/21 0802 Signed By: <Electronically signed by DO Walter Montgomery> 12/12/21 0807 [facility] Work Phone: Progress note Author [facility] December 12, 2021 1:20pm Note Date/Time December 12, 2021 1: 20pm [facility] [address] [place] [address] Hospitalist Progress Note Signed Patient: Taye Gay MR#: [id number] : 1955 Acct:[id number] Age/Sex: 66 / F Adm Date: 2 Loc: Room: [address] [place] [address] Type: ADM INOo Attending Dr: Arleen Stephen [...] Capsule.Dr PO 12/10/22 08:59 Not Given DAILY [facility] Ondansetron HCl 4 mg 12/09/21 11:19 Ondansetron 4 Mg/2 Ml Vial IV-PUSH 12/09/22 11:18 Q8H PRN Nausea And Vomiting Pioglitazone HCl 15 mg 12/10/21 09:00 12/12/21 10:33 Pioglitazone 15 Mg Tablet PO 12/10/22 08:59 Not Given DAILY [facility] Potassium Chloride 40 meq 12/09/21 11:19 Potassium [...] signed by Arleen Stephen MD> 12/12/21 1320 [facility] Work Phone: Progress note Author [facility] December 12, 2021 8:43pm Note Date/Time December 12, 2021 2: 49pm [facility] [address] [place] [address] Urology Progress Note Signed Patient: Taye Gay MR#: [id number] : 1955 Acct:[id number] Age/Sex: 66 / F Adm Date: 2 Loc: 3T Room: [address] [place] [address] Type: ADM INOo Attending Dr: Arleen Stephen [...] % (Auto) 72.7, Lymph % (Auto) 16.1, [place] % (Auto) 8.8, Eos % (Auto) 2.1, Baso % (Auto) 0.3, Neut # (Auto) 5.3, Lymph # (Auto) 1.2, [place] # (Auto) 0.6, Eos# (Auto) 0.2, Baso [...] % (Auto) 66.8, Lymph % (Auto) 21.0, [place] % (Auto) 9.2, Eos % (Auto) 2.6, Baso % (Auto) 0.4, Neut # (Auto) 4.1, Lymph # (Auto) 1.3, [place] # (Auto) 0.6, Eos # (Auto) 0.2, [...] for UTI Documented By: Ingrid Sommers DO, GAGE 12/12/21 1446 Signed By: <Electronically signed by DO GAGE Sommers> 12/12/21 1451 <Electronically signed by Teresa Strong MD> 12/12/212042 [facility] Work Phone: Progress note Author [facility] [place] 17th, 2022 8:52am Note Date/Time December 13, 2021 8: 52am [facility] [address] [place] [address] General Surgery Progress Note Signed Patient: Taye Gay MR#: [id number] : 1955 Acct:[id number] Age/Sex: 66 / F Adm Date: 2 Loc: Room: [address] [place] [address] Type: ADM INOo Attending Dr: Wilmer Vance [...] Mg Tablet.) 81 mg PO DAILY [facility] Stop: 12/10/22 08:59 Last Admin: 12/12/21 10:33 Dose: Not Given Atorvastatin Calcium (Atorvastatin 10 Mg Tablet) 10 mg PO DAILY [facility] Stop: 12/10/22 08:59 Last Admin: 12/12/21 10:33 Dose: Not Given Cyanocobalamin (Cyanocobalamin 1,000 Mcg Tablet) 1,000 mcg PO DAILY [facility] Stop: 12/13/22 08:59 Dextrose (Dextrose 50% In Water 25 Gm/50 Ml Syringe) 0 gm IV-PUSH PRN PRN PRN Reason: Hypoglycemia Stop: 12/09/22 11:18 Docusate Sodium (Docusate 100 Mg Capsule) 100 mg PO TID [facility] Stop: 12/12/22 21:59 Last Admin: 12/12/21 22:26 Dose: 100 mg Enoxaparin Sodium (Enoxaparin 40 Mg/0.4 Ml Syringe) 40 mg SUBCUT DAILY@10 [facility] Stop: 12/10/22 09:59 Last Admin: 12/12/21 10:33 [...] mls @ 100 mls/hr IV Q24H [facility] Last Admin: 12/12/21 11:57 Dose: 100 mls/hr Sodium Chloride (0.9% Sodium Chloride 1,000 Ml) 1,000 mls @ 100 mls/hr IV .[id number] Stop: 12/12/22 00:00 Last Infusion: 12/13/21 03:35 Dose: Infused Lactated Ringer's (Lactated Ringers) 1,000 mls @ 20 mls/hr IV .Q24H ONE Stop: 12/13/21 11:13 Last Infusion: 12/13/21 03:31 Dose: Infused Insulin Aspart (Insulin Aspart 300 Units/3 Ml Insuln.Pen) 0 units SUBCUT TID.WM.[facility]; Protocol Stop: 12/09/22 11:59 Last Admin: 12/13/21 08:07 Dose: 4 units Nortriptyline HCl (Nortriptyline 25 Mg Capsule) 50 mg PO BID [facility] Stop: 12/09/22 20:59 Last Admin: 12/12/21 22:27 Dose: 50 mg Omeprazole (Omeprazole 20 Mg Capsule.Dr) 20 mg PO DAILY [facility] Stop: 12/10/22 08:59 Last Admin: 12/12/21 10:33 Dose: Not Given Ondansetron HCl (Ondansetron 4 Mg/2 Ml Vial) 4 mg IV-PUSH Q6H PRN PRN Reason: Nausea And Vomiting Stop: 12/12/22 18:19 Pioglitazone HCl (Pioglitazone 15 Mg Tablet) 15 mg PO DAILY [facility] Stop: 12/10/22 08:59 Last Admin: 12/12/21 10:33 [...] % (Auto) 90.4, Lymph % (Auto) 7.7, [place] % (Auto) 1.8, Eos % (Auto) 0.0, Baso % (Auto) 0.1, Neut # (Auto) 8.5 H, Lymph # (Auto) 0.7 L, [place] # (Auto) 0.2, Eos # (Auto) 0.0, [...] % (Auto) 72.7, Lymph % (Auto) 16.1, [place] % (Auto) 8.8, Eos % (Auto) 2.1, Baso % (Auto) 0.3, Neut # (Auto) 5.3, Lymph # (Auto) 1.2, [place] # (Auto) 0.6, Eos# (Auto) 0.2, Baso [...] % (Auto) 66.8, Lymph % (Auto) 21.0, [place] % (Auto) 9.2, Eos % (Auto) 2.6, Baso % (Auto) 0.4, Neut # (Auto) 4.1, Lymph # (Auto) 1.3, [place] # (Auto) 0.6, Eos # (Auto) 0.2, [...] signed by DO Walter Montgomery> 12/13/21 0852 [facility] Work Phone: Progress note Author [facility] Note Date/Time April 29, 2024 11 :02am [facility] [address] [place] [address] Hospitalist Progress Note Signed Patient: Taye Gay MR#: [id number] : 1955 Acct:[id number] Age/Sex: 68 / F Adm Date: 4 Loc: Room: [address] [place] [address] Type: ADM IN Attending Dr: Priscilla Lang [...] of dementia, possible Alzheimer's dementia -continue home [id number] mg twice daily and donepezil 20 mg [...] signed by Priscilla Lang MD> 04/29/24 1102 [facility] Work Phone: Progress note Author Lit [facility] Note Date/Time April 30, 2024 12 :30pm [facility] [address] [place] [address] Neurology Progress Note Signed with Addenda Patient: Taye Gay MR#: [id number] : 1955 Acct:[id number] Age/Sex: 68 / F Adm Date: 4 Loc: 3T Room: [address] [place] [address] Type: ADM IN Attending Dr: Priscilla Lang MD Copies to: ~ ADDENDUM1 Patient has refused to remove her nail azerbaijani for MRI. Unable to confirm whether or [...] may be metabolic in nature and not manufacturer representative necessarily of transient ischemia or of [...] signed by Lit Clark DO> 04/30/24 0708 [facility] Work Phone: Reason for referral (narrative)No reason for referral information availableAvita Health [facility] [employer] Work Phone: Summary Purpose Family History No [...] December 4:05pm Procedure Findings Note HNO ID: [id number] Author: Phi Joaquin Service: Gynecology Oncology Author Type: Physician Type: Brief Op Note Filed: 01/17/2019 7:15 PM Note Text: BRIEF OPERATIVE / PROCEDURE NOTE LOG ID: [id number] SURGERY/PROCEDURE DATE: 01/01/2019 INCISION/PROCEDURE START TIME: 8:11 AM INCISION CLOSE/PROCEDURE END TIME: 8:34 AM SURGEON(S)/PROCEDURALIST(S) AND NURSE SUBSTANCE ABUSE(S): Surgeon(s) and Role: * Theo Joaquin - [...] 01, 2019 TIME: 8:39 AM PAGER/CONTACT #: [id number] Chief Complaint and Reason for Visit Chief Complaint right side pain Low R abd pain Reason for Visit Cholelithiasis Emphysematous cystitis Pyelonephritis Right lateral abdominal pain Chief Complaint g02.97 f17.210 Chief Complaint g02.97 f17.210 Z12.39 Chief Complaint E11.4 Z78.0 Chief Complaint 3 month follow up Reason for Visit BMI 28.0-28.9,adult [id number] Dietary counseling and surveillance Hyperlipidemia Hypertension Insulin long-term use Peripheral neuropathy Type 2 diabetes mellitus Vitamin B 12 deficiency Chief Complaint 3 month follow up PVD FOLLOW UP Reason for Visit BMI 28.0-28.9,adult [id number] Dietary counseling and surveillance Hyperlipidemia Hypertension Insulin long-term use Peripheral neuropathy Type 2 diabetes mellitus Vitamin B 12 deficiency Dizziness Hypertension Primary insomnia Type 2 diabetes mellitus Chief Complaint 3 month follow up PVD FOLLOW UP g02.97 f17.210 Reason for Visit BMI 28.0-28.9,adult [id number] Dietary counseling and surveillance Hyperlipidemia Hypertension Insulin long-term use Peripheral neuropathy Type 2 diabetes mellitus Vitamin B 12 deficiency Dizziness Hypertension Primary insomnia Type 2 diabetes mellitus PAD (peripheral artery disease) Chief Complaint 3 month follow up PVD FOLLOW UP g02.97 f17.210 E11.9 E78.5 E53.8 Reason for Visit BMI 28.0-28.9,adult [id number] Dietary counseling and surveillance Hyperlipidemia Hypertension Insulin long-term use Peripheral neuropathy Type 2 diabetes mellitus Vitamin B 12 deficiency Dizziness Hypertension Primary insomnia Type 2 diabetes mellitus PAD (peripheral artery disease) Chief Complaint PVD FOLLOW UP g02.97 f17.210 E11.9 E78.5 E53.8 Amb Documentation brent on phone chest pains chest pains Reason for Visit PAD (peripheral evert ry disease) BMI 28.0-28.9,adult [id number] Dietary counseling and surveillance Hyperlipidemia Hypertension Peripheral [...] PAD (peripheral evert ry disease) BMI 28.0-28.9,adult [id number] Dietary counseling and surveillance Hyperlipidemia Hypertension Peripheral [...] i70.91 d51.3 Reason for Visit BMI 28.0-28.9,adult [id number] Dietary counseling and surveillance Hyperlipidemia Hypertension Peripheral [...] d51.3 aflutter Reason for Visit BMI 28.0-28.9,adult [id number] Dietary counseling and surveillance Hyperlipidemia Hypertension Peripheral [...] Falls, Shaky Reason for Visit BMI 28.0-28.9,adult [id number] Dietary counseling and surveillance Hyperlipidemia Hypertension Peripheral [...] Falls, Shaky Reason for Visit BMI 28.0-28.9,adult [id number] Dietary counseling and surveillance Hyperlipidemia Hypertension Peripheral [...] on phone Reason for Visit BMI 28.0-28.9,adult [id number] Dietary counseling and surveillance Hyperlipidemia Hypertension Peripheral [...] Vitamin B 12 deficiency Weakness BMI 28.0-28.9,adult [id number] Dietary counseling and surveillance Hyperlipidemia Hypertension Peripheral neuropathy Type 2 diabetes mellitus Vitamin B 12 deficiency Chief Complaint E11.9 E78.5 E53.8 Amb Documentation brent on phone chest pains chest pains Amb Documentation Hospital follow up g72.9 g62.9 r79.89 g60.9 z11.3 e53.1 i70.91 d51.3 aflutter Multiple Falls, Shaky Amb Documentation brent on phone typical a flutter Reason for Visit BMI 28.0-28.9,adult [id number] Dietary counseling and surveillance Hyperlipidemia Hypertension Peripheral [...] Weakness Abnormal thyroid blood test BMI 28.0-28.9,adult [id number] Dietary counseling and surveillance Hyperlipidemia Hypertension Peripheral neuropathy Type 2 diabetes mellitus Vitamin B 12 deficiency Chief Complaint E11.9 E78.5 E53.8 Amb Documentation brent on phone chest pains chest pains Amb Documentation Hospital follow up g72.9 g62.9 r79.89 g60.9 z11.3 e53.1 i70.91 d51.3 aflutter Multiple Falls, Shaky Amb Documentation brent on phone typical a flutter typical a flutter [facility] follow up Reason for Visit BMI 28.0-28.9,adult [id number] Dietary counseling and surveillance Hyperlipidemia Hypertension Peripheral [...] Weakness Abnormal thyroid blood test BMI 28.0-28.9,adult [id number] Dietary counseling and surveillance Hyperlipidemia Hypertension Peripheral neuropathy Type 2 diabetes mellitus Vitamin B 12 deficiency Hospital discharge follow-up Hypomagnesemia Chief Complaint E11.9 E78.5 E53.8 Amb Documentation brent on phone chest pains chest pains Amb Documentation Hospital follow up g72.9 g62.9 r79.89 g60.9 z11.3 e53.1 i70.91 d51.3 aflutter Multiple Falls, Shaky Amb Documentation brent on phone typical a flutter typical a flutter [facility] follow up G62.9 G60.9 R79.89 Z11.3 E53.1 I70.31 D51.3 Reason for Visit BMI 28.0-28.9,adult [id number] Dietary counseling and surveillance Hyperlipidemia Hypertension Peripheral [...] Weakness Abnormal thyroid blood test BMI 28.0-28.9,adult [id number] Dietary counseling and surveillance Hyperlipidemia Hypertension Peripheral neuropathy Type 2 diabetes mellitus Vitamin B 12 deficiency Hospital discharge follow-up Hypomagnesemia Chief Complaint E11.9 E78.5 E53.8 Amb Documentation brent on phone chest pains chest pains Amb Documentation Hospital follow up g72.9 g62.9 r79.89 g60.9 z11.3 e53.1 i70.91 d51.3 aflutter Multiple Falls, Shaky Amb Documentation brent on phone typical a flutter typical a flutter [facility] follow up G62.9 G60.9 R79.89 Z11.3 E53.1 I70.31 D51.3 g62.9 r79.89 g60.9 z11.3 e53.1 d51.3 Reason for Visit BMI 28.0-28.9,adult [id number] Dietary counseling and surveillance Hyperlipidemia Hypertension Peripheral [...] Weakness Abnormal thyroid blood test BMI 28.0-28.9,adult [id number] Dietary counseling and surveillance Hyperlipidemia Hypertension Peripheral neuropathy Type 2 diabetes mellitus Vitamin B 12 deficiency Hospital discharge follow-up Hypomagnesemia Chief Complaint g72.9 g62.9 r79.89 g 60.9 z11.3 e53.1 i70.91 d51.3 aflutter Multiple Falls, Shaky Amb Documentation brent on phone typical a flutter typical a flutter [facility] follow up G62.9 G60.9 R79.89 Z11.3 E53.1 I70.31 D51.3 g62.9 r79.89 g60.9 z11.3 e53.1 d51.3 M54.17 Reason for Visit Ambulatory dysfuncti on Hypomagnesemia Hypothyroid Type 2 diabetes mellitus with hyperglycemia Vitamin B 12 deficiency Weakness Abnormal thyroid blood test BMI 28.0-28.9,adult [id number] Dietary counseling and surveillance Hyperlipidemia Hypertension Peripheral neuropathy Type 2 diabetes mellitus Vitamin B 12 deficiency Hospital discharge follow-up Hypomagnesemia Chief Complaint g72.9 g62.9 r79.89 g 60.9 z11.3 e53.1 i70.91 d51.3 aflutter Multiple Falls, Shaky Amb Documentation brent on phone typical a flutter typical a flutter [facility] follow up G62.9 G60.9 R79.89 Z11.3 E53.1 I70.31 D51.3 g62.9 r79.89 g60.9 z11.3 e53.1 d51.3 M54.17 R60.0 M79.671 r/o dvt Reason for Visit Ambulatory dysfuncti on Hypomagnesemia Hypothyroid Type 2 diabetes mellitus with hyperglycemia Vitamin B 12 deficiency Weakness Abnormal thyroid blood test BMI 28.0-28.9,adult [id number] Dietary counseling and surveillance Hyperlipidemia Hypertension Peripheral neuropathy Type 2 diabetes mellitus Vitamin B 12 deficiency Hospital discharge follow-up Hypomagnesemia Chief Complaint g72.9 g62.9 r79.89 g 60.9 z11.3 e53.1 i70.91 d51.3 aflutter Multiple Falls, Shaky Amb Documentation brent on phone typical a flutter typical a flutter [facility] [place] follow up G62.9 G60.9 R79.89 Z11.3 E53.1 I70.31 D51.3 g62.9 r79.89 g60.9 z11.3 e53.1 d51.3 M54.17 R60.0 M79.671 r/o dvt L97.511 L03.115 lumbosacral radiculopathy at s1 Reason for Visit Ambulatory dysfuncti on Hypomagnesemia Hypothyroid Type 2 diabetes mellitus with hyperglycemia Vitamin B 12 deficiency Weakness Abnormal thyroid blood test BMI 28.0-28.9,adult [id number] Dietary counseling and surveillance Hyperlipidemia Hypertension Peripheral neuropathy Type 2 diabetes mellitus Vitamin B 12 deficiency Hospital discharge follow-up Hypomagnesemia Chief Complaint aflutter Multiple Falls, Shaky Amb Documentation brent on phone typical a flutter typical a flutter [facility] [place] follow up G62.9 G60.9 R79.89 Z11.3 E53.1 I70.31 D51.3 g62.9 r79.89 g60.9 z11.3 e53.1 d51.3 M54.17 R60.0 M79.671 r/o dvt L97.511 L03.115 lumbosacral radiculopathy at s1 8 Month F/U Reason for Visit Ambulatory dysfuncti on Hypomagnesemia Hypothyroid Type 2 diabetes mellitus with hyperglycemia Vitamin B 12 deficiency Weakness Abnormal thyroid blood test BMI 28.0-28.9,adult [id number] Dietary counseling and surveillance Hyperlipidemia Hypertension Peripheral [...] 2024 11:14am Dietary counseling and surveillance [facility] 2023 11:14am Hyperlipidemia April 28, 2024 11:14am [...] 2024 11:14am Dietary counseling and surveillance [facility] 2023 11:14am Hyperlipidemia April 28, 2024 11:14am Hypertension April 28, 2024 11:14am Peripheral neuropathy April 28 11:14am Type 2 diabetes mellitus April 28, 2024 11:14am Vitamin B 12 deficiency April 28 11:14am Atrial fibrillation April 28, 2024 10:38pm Generalized weakness April 28, 2024 10:38pm Insulin dependent diabetes mellitus [facility] 2023 10:38pm TIA (transient ischemic attack) April 28, 2024 10:38pm Chief Complaint Admit Date Screening, Dysphagia February 14, 2024 12:30pm NEW elevated WBC April 14, 2024 9:30am irregular heart beat, dizziness, weaknes s April 27, 2024 2:18pm Follow Up 2 Weeks April 28, 2024 9:53am brent on phone April 28, 2024 11:14am Weakness April 28, 2024 10:38pm [facility] FOLLOW UP May 07 1:02pm Reason for Visit Admit Date High granulocyte count April 14 9:30am Secondary polycythemia April 14 9:30am High granulocyte count April 28 9:53am Secondary polycythemia April 28 9:53am BMI 32.0-32.9,adult April 28, 2024 11:14am Chronic kidney disease (CKD) stage G2/A2, mildly decreased glomerular filtr April 28, 2024 11:14am Dietary counseling and surveillance [facility] 2023 11:14am Hyperlipidemia April 28, 2024 11:14am Hypertension April 28, 2024 11:14am Peripheral neuropathy April 28 11:14am Type 2 diabetes mellitus April 28, 2024 11:14am Vitamin B 12 deficiency April 28 11:14am Atrial fibrillation April 28, 2024 10:38pm Generalized weakness April 28, 2024 10:38pm Insulin dependent diabetes mellitus [facility] 2023 10:38pm TIA (transient ischemic attack) April 28, 2024 10:38pm Cigarette nicotine dependence April 1:02pm Chief Complaint Admit Date NEW elevated WBC April 14, 2024 9:30am irregular heart beat, dizziness, weaknes s April 27, 2024 2:18pm Follow Up 2 Weeks April 28, 2024 9:53am brent on phone April 28, 2024 11:14am Weakness April 28, 2024 10:38pm [facility] FOLLOW UP May 07 1:02pm G45.9 [...] 2024 11:14am Dietary counseling and surveillance [facility] 2023 11:14am Hyperlipidemia April 28, 2024 11:14am Hypertension April 28, 2024 11:14am Peripheral neuropathy April 28 11:14am Type 2 diabetes mellitus April 28, 2024 11:14am Vitamin B 12 deficiency April 28, 024 11:14am Atrial fibrillation April 28, 2024 10:38pm Generalized weakness April 28, 2024 10:38pm Insulin dependent diabetes mellitus [facility] 2023 10:38pm TIA (transient ischemic attack) April [...] 2024 11:14am Weakness April 28, 2024 10:38pm [facility] FOLLOW UP May 07 1:02pm G45.9 May 25, 2024 4 :33pm r06.02, r60.9, E11.65, E78.5 June 262024 10:35am Elevated WBC June 26, 2024 10:38am Chief Complaint Admit Date NEW elevated WBC April 14, 2024 9:30am irregular heart beat, dizziness, weaknes s April 27, 2024 2:18pm Follow Up 2 Weeks April 28, 2024 9:53am brent on phone April 28, 2024 11:14am Weakness April 28, 2024 10:38pm [facility] FOLLOW UP May 07 1:02pm G45.9 May 25, 2024 4 :33pm r06.02, r60.9, E11.65, E78.5 June 262024 10:35am Elevated WBC June 26, 2024 10:38am Unknown July 06, 2024 8:3 7pm Chief Complaint Admit Date irregular heart beat, dizziness, weaknes s April 27, 2024 2:18pm Follow Up 2 Weeks April 28, 2024 9:53am brent on phone April 28, 2024 11:14am Weakness April 28, 2024 10:38pm [facility] FOLLOW UP May 07 1:02pm G45.9 May 25, 2024 4 :33pm r06.02, r60.9, E11.65, E78.5 June 262024 10:35am Elevated WBC June 26, 2024 10:38am Unknown July 06, 2024 8:3 7pm 1 YEAR FOLLOW; [facility]JA[facility] B/L July 22 10:54am Reason for Visit Admit Date High granulocyte count April 28 9:53am Secondary polycythemia April 28 9:53am BMI 32.0-32.9,adult April 28, 2024 11:14am Chronic kidney disease (CKD) stage G2/A2, mildly decreased glomerular filtr April 28, 2024 11:14am Dietary counseling and surveillance [facility] 2023 11:14am Hyperlipidemia April 28, 2024 11:14am Hypertension April 28, 2024 11:14am Peripheral neuropathy April 28 11:14am Type 2 diabetes mellitus April 28, 2024 11:14am Vitamin B 12 deficiency April 28, 2 024 11:14am Atrial fibrillation April 28, 2024 10:38pm Generalized weakness April 28, 2024 10:38pm Insulin dependent diabetes mellitus [facility] 2023 10:38pm TIA (transient ischemic attack) April 28, 2024 10:38pm Cigarette nicotine dependence April 1:02pm Disordered sleep May 07, 2024 1: 02pm Hypotension May 07, 2024 1: 02pm Stool incontinence May 07, 2024 1: 02pm TIA (transient ischemic attack) May 07, 2024 1:02pm Reason for Visit Admit Date High granulocyte count April 28 9:53am Secondary polycythemia April 28 9:53am BMI 32.0-32.9,adult April 28, 2024 11:14am Chronic kidney disease (CKD) stage G2/A2, mildly decreased glomerular filtr April 28, 2024 11:14am Dietary counseling and surveillance [facility] 2023 11:14am Hyperlipidemia April 28, 2024 11:14am Hypertension April 28, 2024 11:14am Peripheral neuropathy April 28 11:14am Type 2 diabetes mellitus April 28, 2024 11:14am Vitamin B 12 deficiency April 28, 2 024 11:14am Atrial fibrillation April 28, 2024 10:38pm Generalized weakness April 28, 2024 10:38pm Insulin dependent diabetes mellitus [facility] 2023 10:38pm TIA (transient ischemic attack) April 28, 2024 10:38pm Cigarette nicotine dependence April 1:02pm Disordered sleep May 07, 2024 1: 02pm Hypotension May 07, 2024 1: 02pm Stool incontinence May 07, 2024 1: 02pm TIA (transient ischemic attack) May 07, 2024 1:02pm Cigarette nicotine dependence June 10:54am Current every day smoker July 22 10:54am PAD (peripheral artery disease) July 222024 10:54am Chief Complaint Admit Date G45.9 May 25, 2024 4 :33pm r06.02, r60.9, E11.65, E78.5 June 262024 10:35am Elevated WBC June 26, 2024 10:38am Unknown July 06, 2024 8:3 7pm 1 YEAR FOLLOW; JAJA'S B/L July 22 10:54am Reason for Visit Admit Date Cigarette nicotine dependence June 10:54am Current every day smoker July 22 10:54am PAD (peripheral artery disease) July 222024 10:54am BMI 32.0-32.9,adult August 20, 2024 9:5 7am Chronic kidney disease (CKD) stage G2/A2, mildly decreased glomerular filtr August 20, 2024 9:57am Dietary counseling and surveillance [facility] 2024 9:57am Hyperlipidemia August 20, 2024 9:5 7am Hypertension August 20, 2024 9:5 7am Peripheral neuropathy August 20, 2024 9 :57am Type 2 diabetes mellitus August 20 9:57am Vitamin B 12 deficiency August 20, 2024 9:57am Chief Complaint Admit Date r06.02, r60.9, E11.65, E78.5 June 262024 10:35am Elevated WBC June 26, 2024 10:38am Unknown July 06, 2024 8:3 7pm 1 YEAR FOLLOW; JAJA'S B/L July 22 10:54am Talk about sleep apnea, referral July 292024 1:31pm Chief Complaint Admit Date r06.02, r60.9, E11.65, E78.5 June 262024 10:35am Elevated WBC June 26, 2024 10:38am Unknown July 06, 2024 8:3 7pm 1 YEAR FOLLOW; JAJA'S B/L July 22 10:54am Talk about sleep apnea, referral July 292024 1:31pm fu after PT September 07, 2024 11:01 am Reason for Visit Admit Date Cigarette nicotine dependence June 10:54am Current every day smoker July 22 10:54am PAD (peripheral artery disease) July 222024 10:54am BMI 32.0-32.9,adult August 20, 2024 9:5 7am Chronic kidney disease (CKD) stage G2/A2, mildly decreased glomerular filtr August 20, 2024 9:57am Dietary counseling and surveillance [facility] 2024 9:57am Hyperlipidemia August 20, 2024 9:5 7am Hypertension August 20, 2024 9:5 7am Peripheral neuropathy August 20, 2024 9 :57am Type 2 diabetes mellitus August 20 9:57am Vitamin B 12 deficiency August 20, 2024 9:57am Cigarette nicotine dependence July 1:31pm Dysphagia, unspecified August 25, 2024 1:31pm Lesion of skin of cheek August 25, 2024 1:31pm Major depression, chronic August 25 1:31pm PAD (peripheral artery disease) August 252024 1:31pm Peripheral neuropathy August 25, 2024 1 :31pm Chief Complaint Admit Date r06.02, r60.9, E11.65, E78.5 June 262024 10:35am Elevated WBC June 26, 2024 10:38am Unknown July 06, 2024 8:3 7pm 1 YEAR FOLLOW; JAJA'S B/L July 22 10:54am Talk about sleep apnea, referral July 292024 1:31pm fu after PT September 07, 2024 11:01 am Dysphagia September 10, 2024 10:57 am Dysphagia September 10, 2024 12:33 pm Reason for Visit Admit Date Cigarette nicotine dependence June 10:54am Current every day smoker July 22 10:54am PAD (peripheral artery disease) July 222024 10:54am BMI 32.0-32.9,adult August 20, 2024 9:5 7am Chronic kidney disease (CKD) stage G2/A2, mildly decreased glomerular filtr August 20, 2024 9:57am Dietary counseling and surveillance [facility] 2024 9:57am Hyperlipidemia August 20, 2024 9:5 7am Hypertension August 20, 2024 9:5 7am Peripheral neuropathy August 20, 2024 9 :57am Type 2 diabetes mellitus August 20 9:57am Vitamin B 12 deficiency August 20, 2024 9:57am Cigarette nicotine dependence July 1:31pm Dysphagia, unspecified August 25, 2024 1:31pm Lesion of skin of cheek August 25, 2024 1:31pm Major depression, chronic August 25 1:31pm PAD (peripheral artery disease) August 252024 1:31pm Peripheral neuropathy August 25, 2024 1 :31pm Lumbar spondylosis September 07, 2024 11:01 am Chief Complaint Admit Date Unknown July 06, 2024 8:3 7pm 1 YEAR FOLLOW; JAJA'S B/L July 22 10:54am Talk about sleep apnea, referral July 292024 1:31pm fu after PT September 07, 2024 11:01 am Dysphagia September 10, 2024 10:57 am Dysphagia September 10, 2024 12:33 pm G47.33 October 01, 2024 2:34p m Reason for Visit Admit Date Cigarette nicotine dependence June 10:54am Current every day smoker July 22 10:54am PAD (peripheral artery disease) July 222024 10:54am BMI 32.0-32.9,adult August 20, 2024 9:5 7am Chronic kidney disease (CKD) stage G2/A2, mildly decreased glomerular filtr August 20, 2024 9:57am Dietary counseling and surveillance [facility] 2024 9:57am Hyperlipidemia August 20, 2024 9:5 7am Hypertension August 20, 2024 9:5 7am Peripheral neuropathy August 20, 2024 9 :57am Type 2 diabetes mellitus August 20 9:57am Vitamin B 12 deficiency August 20, 2024 9:57am Cigarette nicotine dependence July 1:31pm Dysphagia, unspecified August 25, 2024 1:31pm Lesion of skin of cheek August 25, 2024 1:31pm Major depression, chronic August 25 1:31pm PAD (peripheral artery disease) August 252024 1:31pm Peripheral neuropathy August 25, 2024 1 :31pm Lumbar spondylosis September 07, 2024 11:01 am Atrial fibrillation October 01, 2024 2:34p m Cardiomyopathy October 01, 2024 2:34p m Congestive heart failure October 01, 2024 2:34pm Hypertension October 01, 2024 2:34p m Hypothyroid October 01, 2024 2:34p m Intolerance to BiPAP/CPAP October 01, 2024 2:34pm Major depression, chronic October 01, 2024 2:34pm [place] (obstructive sleep apnea) October 01, 2024 2:34pm Secondary polycythemia October 01, 2024 2: 34pm Reason for Referral Specialty Diagnoses / Procedures Referred By Contac t Referred To Contact Diagnoses Typical atrial flutter (Multi) Procedures ECG 12 Lead Jonas Ch MD [address] [place] [address] 2, [address] [address] Referral ID Status Reason Start Date Expiration Date V isits Requested Visits Authorized [id number] Authorized 11/13/2023 11/12/2024 1 1 Specialty Diagnoses / Procedures Referred By Contac t Referred To Contact Diagnoses Typical atrial flutter (Multi) Procedures Complete Pulmonary Function Test (Spirometry/DLCO/Lung Volumes) Jonas Ch MD [address] [facility] 2, [place] [address] [place] [address] Referral ID Status Reason Start Date Expiration Date V isits Requested Visits Authorized [id number] Pending Review 11/13/2023 11/12/2024 1 1 Specialty Diagnoses / Procedures Referred By Contac t Referred To Contact Radiology Diagnoses Typical atrial flutter (Multi) Procedures XR chest 2 views Jonas Ch MD [address] [place] [address] 2, [address] [address] Referral ID Status Reason Start Date Expiration Date Visits Requested Visits Authorized [id number] Authorized Perform Procedure 11/13/2023 11/12/2024 1 1 Specialty Diagnoses / Procedures Referred By Contac t Referred To Contact Cardiology Diagnoses Nonischemic cardiomyopathy (Multi) Procedures Follow Up In Cardiology Jonas Ch MD [address] [place] [address] 2, [address] [address] Thuan Wise MD [address] [place] [address] 2, [address] [address] Referral ID Status Reason Start Date Expiration Date V isits Requested Visits Authorized [id number] Authorized 11/13/2023 11/12/2024 1 1 Specialty Diagnoses / Procedures Referred By Contac t Referred To Contact Cardiology Diagnoses Typical atrial flutter (Multi) Procedures Cardioversion External Jonas Ch MD [address] [facility] 2, [place] [address] [place] [address] Referral ID Status Reason Start Date Expiration Date V isits Requested Visits Authorized [id number] Pending Review 10/07/2023 10/06/2024 1 1 Specialty Diagnoses / Procedures Referred By Contac t Referred To Contact Cardiology Diagnoses Typical atrial flutter (Multi) Procedures Follow Up In Cardiology Jonas Ch MD [address] [facility] 2, [address] [place] [address] Jonas Ch MD [address] [facility] 2, [facility] [address] [place] [address] Referral ID Status Reason Start Date Expiration Date V isits Requested Visits Authorized [id number] Authorized 10/07/2023 10/06/2024 1 1 Reason LEFT FOOT INJURY Diagnosis 1 Type 2 diabetes ye itus with hyperglycemia (E11.65) Diagnosis 2 Injury of foot, left (S99.922A) Referral Organization [facility] Referring Provider First Name Angelique Referring Provider Last Name Yvonne Referring Provider Specialty Nurse Pract itioner Referred Organization [facility] Referred Provider Karl Fritz Referred Address ,[place], [place],[address] Referred Provider Specialty Podiatry - S urgical Chiropody Referral Priority Routine Referral Appointment Date 2023-01-09 General Notes Emerald Doshi 12/28 03:26:20 PM >SCHEDULED FOR 01/09/23 AT 10:15AM. PATIENT INFORMED. Additional Source Comments INFORMATION SOURCE (unrecogn ized section and content) DATE CREATED AUTHOR 10/21/2017 [facility] DATE CREATED AUTHOR AUTHOR'S ORGANIZ ATION 10/22/2017 [facility] DATE CREATED AUTHOR AUTHOR'S ORGANIZ ATION 02/16/2019 [facility] DATE CREATED AUTHOR AUTHOR'S ORGANIZ ATION 02/02/2022 [facility] DATE CREATED AUTHOR AUTHOR'S ORGANIZ ATION 06/28/2024 [facility] DATE CREATED AUTHOR AUTHOR'S ORGANIZ ATION 11/16/2024 [facility] DATE CREATED AUTHOR AUTHOR'S ORGANIZ ATION 11/18/2024 [facility] DATE CREATED AUTHOR AUTHOR'S ORGANIZ ATION 11/24/2024 [facility] EPIC REASON FOR VISIT (unrecogniz ed section and content) Reason Comments Hospital Follow-up [facility] 09/14/23 Reason Comments Peripheral Neuropathy Reason Comments Blood Pressure Check With ekg Specialty Diagnoses / Procedures Referred By Tahmina thurston Referred To Contact Cardiology Diagnoses Hypertension, unspecified type Procedures Follow Up In Cardiology Thuan Wise MD [address] [place] [address] 2, [address] [address] Phone: tel: fax: Thuan Wise MD [address] [place] [address] [address], [address] [address] Phone: tel: fax: Referral ID Status Reason Start Date Expiration Date V isits Requested Visits Authorized [id number] Authorized 03/09/2024 03/09/2025 1 1 Reason Comments Follow-up [facility] follow up Specialty Diagnoses / Procedures Referred By Tahmina thurston Referred To Contact Cardiology Diagnoses Typical atrial flutter (Multi) Procedures Follow Up In Cardiology Jonas Ch MD [address] [place] [address] 2, [address] [address] Jonas Ch MD [address] [place] [address] 2, [address] [address] Referral ID Status Reason Start Date Expiration Date V isits Requested Visits Authorized [id number] Authorized 10/07/2023 10/06/2024 1 1 Reason Comments cognitive decline Reason Comments Follow-up Medication change, A sherman d/c Specialty Diagnoses / Procedures Referred By Tahmina thurston Referred To Contact Cardiology Diagnoses Typical atrial flutter (Multi) Procedures Follow Up In Cardiology Thuan Wise MD [address] [place] [address] 2, [address] [address] Thuan Wise MD [address] [place] [address] 2, [place] [id number] Referral ID Status Reason Start Date Expiration Date V isits Requested Visits Authorized [id number] Authorized 11/28/2023 11/27/2024 1 1 Specialty Diagnoses / Procedures Referred By Papitoac t Referred To Contact Neurology Diagnoses Carpal tunnel syndrome, bilateral upper limbs Procedures NE INJECTION THERAPEUTIC CARPAL TUNNEL NE KETOROLAC TROMETHAMINE INJ 1 CC STERILE SYRINGE&NEEDLE Oz Kincaid MD [address] [place] [id number] Oz Kincaid MD [address] [place] [id number] Referral ID Status Reason Start Date Expiration Date V isits Requested Visits Authorized [id number] Closed Perform Procedure 12/16/2023 06/13/2024 1 1 Reason Comments Follow-up 4 month with EKG. Pt denies c/o at this time. Specialty Diagnoses / Procedures Referred By Tahmina thurston Referred To Contact Cardiology Diagnoses Nonischemic cardiomyopathy (Multi) Procedures Follow Up In Cardiology Jonas Ch MD Traboulssi, Mourhaf, MD [address] [place] [address] 2, [place] [id number] Phone: tel: fax: Referral ID Status Reason Start Date Expiration Date V isits Requested Visits Authorized [id number] Pending Review 11/13/2023 11/12/2024 1 1 Reason Comments cognitive decline Reason Comments Med Refill Care Teams (unrecognized sec tion and content) Team Status: Active Member Role Status Dates Sandra Keita DO Primary Care Provider Active Team Status: Inactive Member Role Status Dates Sandra Keita DO Primary Care Provider Active Start: June 26, 2024 End: June 26, 2024 Thuan Wise MD Attending Provider Active Start: June 26, 2024 End: June 26, 2024 Angelique Russell APRN Other Provider Active Star t: June 26, 2024 End: June 26, 2024 Team Status: Active Member Role Status Dates Sandra Keita DO Primary Care Provider Active Start: June 26, 2024 Nataliya Jane APRN Attending Provider Active Start: May Oz Kincaid MD Referring Provider Active Start: June 26, 2024 Team Status: Inactive Member Role Status Dates Deneen Frost PA-C Attending Provider Active Start: July 06, 2024 End: July 06, 2024 Team Status: Inactive Member Role Status Dates Sandra Keita DO Primary Care Provider Active Start: July 22, 2024 End: July 22, 2024 CHERYL García Attending Provider Active Start: July 22, 2024 End: July 22, 2024 Team Status: Inactive Member Role Status Dates Sandra Keita DO Primary Care Provider Active Start: August 20, 2024 End: August 20, 2024 Angelique Russell APRN Attending Provider Active Start: August 20, 2024 End: August 20, 2024 Team Status: Inactive Member Role Status Dates Sandra Keita DO Primary Care Provide r, Attending Provider Active Start: August 25, 2024 End: August 25, 2024 Team Status: Inactive Member Role Status Dates Sandra Keita DO Primary Care Provider Active Start: September 07, 2024 End: September 07, 2024 Edgar Eden DO Attending Provider Active S tart: September 07, 2024 End: September 07, 2024 Team Status: Active Member Role Status Dates Sandra Keita DO Primary Care Provider Active Start: June 04, 2024 Adan Lopez DO Attending Provider Active Sta rt: June 04, 2024 Team Status: Inactive Member Role Status Dates Sandra Keita DO Primary Care Provider Active Start: June 12, 2023 End: June 12, 2023 Angelique Russell APRN Attending Provider Active Start: June 12, 2023 End: June 12, 2023 Team Status: Active Member Role Status Dates Jonas Yoder DO Primary Care Provider Karlos Fine MD Active Kelly Giang PA-C Active Angelique Russell APRN Attending Provider Active Team Status: Inactive Member Role Status Dates Sandra Keita , DO Primary Care Provider, Attending Franchesca hartley Active Team Status: Inactive Member Role Status Dates Tray Randle , DO Emergency Provider Active Arleen Stephen MD Admit Provider Active Walter Montgomery , DO Other Provider Active Teresa Strong MD Other Provider Active Wilmer Vance MD Attending Provider Active Jonas Yoder , DO Primary Care Provider Acti ve Team Status: Inactive Member Role Status Dates PHYSICIAN NO FAMILY Primary Care Provider Active Rl Villavicencio , DO Emergency Provider Active Team Status: Active Member Role Status Dates PHYSICIAN NO FAMILY Primary Care Provider Active Team Status: Inactive Member Role Status Dates Sandra Keita , DO Primary Care Provide r, Attending Provider Active Start: June 19, 2023 End: June 19, 2023 Team Status: Inactive Member Role Status Dates Sandra Keita , DO Primary Care Provider Active Start: July [...] Dates Sandra Keita , DO Primary Care Provider Active Start: September 05, 2023 End: September 05, 2023 Angelique Russell , NITZA Attending Provider Active Start: September 05, 2023 [...] Stephanie Stoll MD Other Provider Active Start: 2023 End: September 14, 2023 Jann Kaplan MD Other Provider Active Start: September 13, 2023 End: September 14, 2023 Cara Tenorio MD Other Provider Active Start: M ay 2023 End: September 14, 2023 Elizabeth Parra , [facility]- Other Provider Active Sta rt: September 13, [...] Active Start: M ay 2023 Elizabeth Parra , [facility]- Other Provider Active Sta rt: September 14, [...] September 17, 2023 End: September 17, 2023 Strategic Partnership Representative Relationship Specialty Start Date End Date Sandra Keita DO [address] [place] [address] PCP - General Family Medicine 09/25/23 Team [...] Cara Tenorio MD Other Provider Active Start: stephanie 2023 End: September 14, 2023 Elizabeth Parra , [facility] Other Provider Active Sta rt: [...] November 05, 2023 Jonas Ch MD Attending Pilar Martin Provider Active Start: November 05, 2023 End: [...] 2023 End: November 12, 2023 Rl Villavicencio , Emergency Provider Active St art: November 10, 2023 End: November 12, 2023 Jluis Campos , DO Admit Provider Active Start: November 10, 2023 End: November 12, 2023 Saranya Wright Other Provider Active Start: November 10, 2023 End: November 12, 2023 Cash Aponte , PhD Other Provider Active S tart: November 10, 2023 End: November 12, 2023 Jelly Tuttle DO Other Provider Active Start: November 10, 2023 End: November 12, 2023 John uMrillo MD Other Provider Active Start : November 10, 2023 End: November 12, 2023 Lit Clark DO Other Provider Active Start: November 10, 2023 End: November 12, 2023 Dayana Dodge ANP-BC Other Provider Active Start: November 10, 2023 End: November 12, 2023 Roque Isidro DO Other Provider Active Start: November 10, 2023 End: November 12, 2023 Tracy Calvo APRN Other Provider Active St art: November 10, 2023 End: November 12, 2023 Tayler Medina NP-C Other Provider Active Sta rt: November 10, 2023 End: November 12, 2023 Jeanine Ibrahim APRN-[employer] INTERN-C Other Provider Active Start: November 10, 2023 [...] January 15, 2024 End: January 15, 2024 Strategic Partnership Representative Relationship Specialty Start Date End Date Sandra Keita DO [address] [facility] [place] [address] PCP - General Family Medicine 01/09/23 Team Status: Inactive Member Role Status Dates Sandra Keita DO Primary Care Provide r, Attending Provider Active Start: February 03, 2024 End: February 03, 2024 Strategic Partnership Representative Relationship Specialty Start Date End Date KeitaMillieSandra, [address] [place] [address] PCP - General Family Medicine 01/09/23 Strategic Partnership Representative Relationship Specialty Start Date End Date Debbie Sandra, [address] [place] [phone] PCP - General Family Medicine 01/09/23 Strategic Partnership Representative Relationship Specialty Start Date End Date Sandra Keita DO [address] [facility] [place] [address] PCP - General Family Medicine 01/09/23 Strategic Partnership Representative Relationship Specialty Start Date End Date KeitaMillieSandra, [address] [facility] [place] [address] PCP - General Family Medicine 01/09/23 Strategic Partnership Representative Relationship Specialty Start Date End Date Sandra Keita DO [address] [facility] [place] [address] PCP - General Family Medicine 09/25/23 Strategic Partnership Representative Relationship Specialty Start Date End Date Sandra Keita DO [address] [place] [phone] PCP - General Family Medicine 01/09/23 Strategic Partnership Representative Relationship Specialty Start Date End Date Sandra Keita DO [address] [place] [phone] PCP - General Family Medicine 01/09/23 Strategic Partnership Representative Relationship Specialty Start Date End Date Sandra Keita DO [address] [place] [phone] PCP - General Family Medicine 01/09/23 Strategic Partnership Representative Relationship Specialty Start Date End Date Millie Keitarirebecca Fernandez DO [address] [place] [address] PCP - General Family Medicine 09/25/23 Strategic Partnership Representative Relationship Specialty Start Date End Date Sandra Keita DO [address] [place] [phone] PCP - General Family Medicine 01/09/23 Strategic Partnership Representative Relationship Specialty Start Date End Date Sandra Keita DO [address] [place] [address] PCP - General Family Medicine 01/09/23 Strategic Partnership Representative Relationship Specialty Start Date End Date Debbie Sandra Rebecca [address] [place] [address] PCP - General Family Medicine 09/25/23 Strategic Partnership Representative Relationship Specialty Start Date End Date Sandra Keita DO [address] [place] [phone] PCP - General Family Medicine 01/09/23 Strategic Partnership Representative Relationship Specialty Start Date End Date Sandra Keita DO [address] [place] [phone] PCP - General Family Medicine 01/09/23 Strategic Partnership Representative Relationship Specialty Start Date End Date KeitaMagdalenarebecca [address] [place] [phone] PCP - General Family Medicine 01/09/23 Strategic Partnership Representative Relationship Specialty Start Date End Date KeitaMagdalenaDO rebecca [address] [place] [phone] PCP - General Family Medicine 01/09/23 Strategic Partnership Representative Relationship Specialty Start Date End Date Sandra Keita DO [address] [place] [address] PCP - General Family Medicine 01/09/23 Strategic Partnership Representative Relationship Specialty Start Date End Date Magdaelna KeitaaDO [address] [place] [phone] PCP - General Family Medicine 01/09/23 Strategic Partnership Representative Relationship Specialty Start Date End Date Sandra Keita DO [address] [place] [address] PCP - General Family Medicine 01/09/23 Strategic Partnership Representative Relationship Specialty Start Date End Date Sandra Keita DO [address] [place] [address] PCP - General [facility] Medicine 01/09/23 Strategic Partnership Representative Relationship Specialty Start Date End Date Sandra Keita DO [address] [place] [address] PCP - [facility] 01/09/23 Team Status: Inactive Member Role Status [...] April 27, 2024 End: April 27, 2024 Rl Villavicencio DO Emergency Provider Active St art: April [...] Emergency Provider Active Start: April 28, 2024 Jori Hearn DO Admit Provider, Atte nding Provider Active Start: April 28, 2024 Team Status: Inactive Member Role Status Dates Sandra Keita DO Primary Care Provider Active Start: April 28, 2024 End: April 30, 2024 Wesley Villafuerte PA-C Emergency Provider Active Start: April 28, 2024 End: April 30, 2024 Jori Hearn DO Admit Provider Active Start: April [...] May 25, 2024 End: May 25, 2024 Strategic Partnership Representative Relationship Specialty Start Date End Date Sandra Keita DO [address] [facility] [place] [address] PCP - General Family Medicine 09/25/23 Team Status: Inactive Member Role Status Dates Sandra Keita DO Primary Care Provider Active Start: April 28, 2024 End: April 28, 2024 Nataliya Jane APRN Attending Provider Active Start: March End: April 28, 2024 Strategic Partnership Representative Relationship Specialty Start Date End Date Sandra Keita DO [address] [facility] [place] [address] PCP - General Family Medicine 01/09/23 Team Status: Inactive Member Role Status Dates Sandra Keita DO Primary Care Provider Active Start: September 10, 2024 End: September 10, 2024 Manjit Gleason MD Attending Provider Active Start: September 10, 2024 End: September 10, 2024 Team Status: Active Member Role Status Dates Sandra Keita DO Primary Care Provider Active Start: September 10, 2024 Manjit Gleason MD Attending Provider, Other Provider Act abdifatah Start: September 10, 2024 Team Status: Inactive Member Role Status Dates Samm Medina MD Attending Provider Active S tart: October 01, 2024 End: October 01, 2024 Sandra Keita DO Referring Provider Active St art: October 01, 2024 End: October 01, 2024 PHYSICIAN NO FAMILY Primary Care Provider Active Start: October 01, 2024 End: October 01, 2024 Strategic Partnership Representative Relationship Specialty Start Date End Date Sandra Keita DO PCP - General Family Medicine 01/09/23 Strategic Partnership Representative Relationship Specialty Start Date End Date Sandra Keita DO PCP - General Family Medicine 01/09/23 Strategic Partnership Representative Relationship Specialty Start Date End Date Sandra Keita DO PCP - General Family Medicine 01/09/23 Strategic Partnership Representative Relationship Specialty Start Date End Date Sandra Keita DO [address] [facility] [place] [address] PCP - General Family Medicine 10/15/24 Strategic Partnership Representative Relationship Specialty Start Date End Date Sandra Keita DO [address] [place] [address] PCP - General Family Medicine 10/15/24 Strategic Partnership Representative Relationship Specialty Start Date End Date Sandra Keita DO [address] [place] [address] PCP - General [facility] Medicine 10/15/24 Strategic Partnership Representative Relationship Specialty Start Date End Date Sandra Keita DO [address] [facility] [place] [address] PCP - General [facility] Medicine 10/15/24 Team Status: Inactive Member Role Status Dates Sandra Keita DO Primary Care Provider Active Start: August 25, 2024 End: August 25, 2024 Sandra Keita DO Attending Provider Active St art: August 25, 2024 End: August 25, 2024 Team Status: Active Member Role Status Dates Sandra Keita DO Primary Care Provider Active Start: September 10, 2024 Manjit Gleason MD Attending Provider Active Start: September 10, 2024 Manjit Gleason MD Other Provider Active Start: September 10, 2024 Team Status: Inactive Member Role Status Dates Karl Fritz DPM Attending Provider Active Start: November 16, 2024 End: November 16, 2024 Strategic Partnership Representative Relationship Specialty Start Date End Date Sanrda Keita DO [address] [facility] [place] [address] PCP - General Family Medicine 10/15/24 Goals (unrecognized section and content) Goals may [...] BE BASED ON THE PRIMARY CLINICAL RECORDS. [facility]. provides no warranty or guarantee of the accuracy or completeness of information in this document.
--- NOTE | 2024-11-26 14:18 | CM.DCFOLLOWU ---
1st attempt 11/26/24, no answer
--- NOTE | 2024-11-27 14:09 | CM.DCFOLLOWU ---
Person spoke with: patient How are you feeling? well How is your pain? none Did you understand your discharge instructions? yes Do you have any questions about your discharge instructions? no Were you given any prescriptions at discharge? yes Were you able to get your prescriptions filled? yes Do you understand how to take your medications as ordered? yes Do you have any questions about your follow up appointment and do you plan to keep your follow up appointment? no questions, will follow up Is there anything else that you would like to discuss? no Questions/Comments/Concerns/Other: none
== END 2024-11-25 10:45 | disposition home health service (06) | DRG 623 ==
LOC: ER 19:23 → MS 22:30
PROVIDERS: Emergency Medicine; Admitting Provider Internal Medicine; Emergency Provider Emergency Medicine; Family Provider Family Medicine; PCP Family Medicine; Visit Provider Student in an Organized Health Care Education/Training Program
DX: E11.621 Type 2 diabetes mellitus with foot ulcer (principal); L03.115 Cellulitis of right lower limb; L97.515 Non-pressure chronic ulcer of other part of right foot with muscle involvement without evidence of necrosis; K21.9 Gastro-esophageal reflux disease without esophagitis; G47.33 Obstructive sleep apnea (adult) (pediatric); F17.200 Nicotine dependence, unspecified, uncomplicated; E78.00 Pure hypercholesterolemia, unspecified; I48.91 Unspecified atrial fibrillation; I11.0 Hypertensive heart disease with heart failure; I50.9 Heart failure, unspecified; Z90.49 Acquired absence of other specified parts of digestive tract; Z90.710 Acquired absence of both cervix and uterus; Z79.82 Long term (current) use of aspirin; Z79.84 Long term (current) use of oral hypoglycemic drugs; Z79.85 Long-term (current) use of injectable non-insulin antidiabetic drugs; Z79.01 Long term (current) use of anticoagulants; E11.628 Type 2 diabetes mellitus with other skin complications; E11.42 Type 2 diabetes mellitus with diabetic polyneuropathy; B95.2 Enterococcus as the cause of diseases classified elsewhere
CPT/HCPCS: 36415; 73630; 73718; 80048; 80053; 82948; 83036; 83605; 83735; 85025; 85652; 86140; 87040; 87070; 87075; 87077; 87186; 96365; 96375; 97116; 97161; 97165; 97535; 99285; 99406; J2543; J3373

== ENCOUNTER 2024-11-26 13:20 | Outpatient (OUT) | payer MEDICARE, MEDICAID, SELFPAY ==
--- NOTE | 2024-11-26 14:00 | PM.CN ---
Consult Note: HPI Data of Consult Patient: known to practice within the last 3 years Requesting Physician: Roseanne Lin NP Primary Care Provider: Sandra Lewis DO Family Provider: JONAS YODER Consult Narrative Reason for consult: neck pain and low back pain Narrative: Kerry wolf pleasant 69 year old female presents for evaluation of chronic low back pain, recently underwent bilateral L4/5 TFESI with 85% improvement ongoing. low back pain 1/10 increasing to 2/10. Pt finding significant benefit to lyrica 300mg bid through neurology and tramadol 50mg BID PRN moderate to severe pain from our office without side effects. pt would like to discuss BUE weakness and neck pain. pain today 0/10 increasing to 5/10 at times, intermittent weakness of BUE. cc:: CC: Roseanne Lin NP [facility] Medical History (Updated 11/26/24 @ 14:02 by Roseanne Lin NP) Low back pain ?M54.50 - Low back pain, unspecified (ICD-10) Neck pain ?M54.2 - Cervicalgia (ICD-10) Heartburn ?R12 - Heartburn (ICD-10) Acid reflux ?K21.9 - Gastro-esophageal reflux disease without esophagitis (ICD-10) Diabetes ?E11.9 - Type 2 diabetes mellitus without complications (ICD-10) Sleep apnea ?G47.30 - Sleep apnea, unspecified (ICD-10) Smoker ?F17.200 - Nicotine dependence, unspecified, uncomplicated (ICD-10) High cholesterol ?E78.00 - Pure hypercholesterolemia, unspecified (ICD-10) Hypertension ?I10 - Essential (primary) hypertension (ICD-10) Atrial fibrillation ?I48.91 - Unspecified atrial fibrillation (ICD-10) Congestive heart failure ?I50.9 - Heart failure, unspecified (ICD-10) Angina at rest ?I20.89 - Other forms of angina pectoris (ICD-10) Surgical History (Updated 11/03/24 @ 11:49 by Melina Presley) H/O eye surgery ?Z98.890 - Other specified postprocedural states (ICD-10) History of cholecystectomy ?Z90.49 - Acquired absence of other specified parts of digestive tract (ICD-10) H/O: hysterectomy ?Z90.710 - Acquired absence of both cervix and uterus (ICD-10) S/P tonsillectomy and adenoidectomy ?Z90.89 - Acquired absence of other organs (ICD-10) Family History (Updated 11/23/24 @ 20:02 by Ayla Garcia RN) Mother Family history of CHF (congestive heart failure) Family history of hypertension Family history of diabetes mellitus Sister Family history of COPD (chronic obstructive pulmonary disease) Father Family history of cancer Family history of myocardial infarction Family history of stroke Social History (Updated 11/23/24 @ 20:04 by Ayla Garcia RN) Within the past year, how often did you have a drink containing alcohol: never Within the past year, how often did you have six or more drinks on one occasion: never Score interpretation: A score less than 3 is consistent with normal alcohol consumption. Smoking status: Current every day smoker Second hand tobacco smoke exposure: No Non-prescribed substance use: denies use Previous occupational history: retired Highest level of school completed/degree received: high school graduate Do you want help with school or training: No Are you now , , , , never or living with a partner: In a typical week, how many times do you talk on the telephone with family, friends, or neighbors: 3 or more times per week How often do you get together with friends or relatives: 3 or more times per week How often do you attend religious or roman catholic services: 4 or more times per year Do you belong to any clubs or organizations such as religious groups unions, fraternal or athletic groups, or school groups: yes Total score: 3 Score interpretation: A score of greater than or equal to 2 indicates the lowest level of social isolation. Little interest or pleasure in doing things: not at all Feeling down, depressed, or hopeless: several days Feel stressed/tense/nervous/anxious/difficulty sleeping: not at all Meds Home Medications and Allergies Home Medications ?Medication ?Instructions ?Recorded ?Confirmed ?Type apixaban 5 mg tablet (Eliquis) 5 mg PO Q12H 10/05/24 11/23/24 History aspirin 81 mg tablet 81 mg PO DAILY 10/05/24 11/23/24 History bupropion HCl 150 mg 24 hr tablet, 150 mg PO DAILY 10/05/24 11/23/24 History extended release carvedilol 12.5 mg tablet 12.5 mg PO Q12H 10/05/24 11/23/24 History donepezil 10 mg tablet 20 mg PO .qd 10/05/24 11/24/24 History empagliflozin 25 mg tablet 25 mg PO DAILY 10/05/24 11/23/24 History (Jardiance) folic acid 1 mg tablet 1 mg PO DAILY 10/05/24 11/23/24 History furosemide 20 mg tablet 20 mg PO .qod 10/05/24 11/24/24 History memantine 10 mg tablet 10 mg PO BID 10/05/24 11/23/24 History metformin 500 mg tablet 500 mg PO BID 10/05/24 11/23/24 History nortriptyline 25 mg capsule 25 mg PO .qhs 10/05/24 11/24/24 History omeprazole 20 mg capsule,delayed 20 mg PO DAILY 10/05/24 11/24/24 History release semaglutide 1 mg/dose (4 mg/3 mL) 2 mg subcut .weekly 10/05/24 11/23/24 History subcutaneous pen injector (Ozempic) simvastatin 20 mg tablet 20 mg PO DAILY 10/05/24 11/24/24 History tramadol 50 mg tablet 50 mg PO BID PRN pain #60 tabs 10/05/24 11/23/24 Rx insulin glargine U-300 conc 300 22 unit subcut Q24H 11/23/24 11/23/24 History unit/mL (1.5 mL) subcutaneous pen (Toujeo SoloStar U-300 Insulin) insulin lispro 100 unit/mL 1 sliding scale dose subcut ACHS 11/23/24 11/25/24 History subcutaneous pen magnesium oxide 400 mg (241.3 mg 400 mg PO BID 11/23/24 11/24/24 History magnesium) tablet acetaminophen 325 mg tablet 650 mg (2 x 325 mg) PO Q8H PRN 11/25/24 Rx (Tylenol) Pain 30 days #60 tabs amoxicillin 875 mg-potassium 1 tab PO BID 10 days #20 tabs 11/25/24 Rx clavulanate 125 mg tablet doxycycline hyclate 100 mg tablet 100 mg PO BID 10 days #20 tabs 11/25/24 Rx pregabalin 150 mg capsule 150 mg PO Q12H #0 caps 11/25/24 11/23/24 Rx Allergies Allergy/AdvReac Type Severity Reaction Status Date / Time Sulfa (Sulfonamide Allergy Mild Vomiting Verified 11/23/24 17:32 Antibiotics) Exam Constitutional Documenting provider has reviewed patient's vital signs: yes Common normals: no apparent distress, oriented x3, healthy appearing, alert and well nourished General appearance: cooperative HENMS Common normals: normocephalic, hearing grossly normal bilaterally and moist oral mucous membranes Head and scalp: normocephalic Eye Common normals: PERRL Pupil: PERRL Neck & C-Spine Common normals: full ROM General: normal visual inspection Cervical spine: cervical ROM abnormal, pain with cervical ROM and cervical spine tenderness Other: negative spurlings strength 5/5 in BUE sensation intact BUE Chest Common normals: inspection of chest normal Respiratory Common normals: normal respiratory effort, no retractions and no use of accessory muscles Back & Pelvis Lumbar spine/lower back: straight leg raise negative bilaterally; ROM not limited, no pain with ROM and no lumbar spinal tenderness Other: sensation intact BLE strength 5/5 in BLE Neuro Common normals: oriented x3 Sensorium/orientation: alert Psych Common normals: mental status grossly normal, thought process normal, cooperative, affect normal, speech normal and activity/motor behavior normal Speech: normal speech Thought process: normal thought process Results Additional Findings Additional findings: If on a controlled substance or opioids, I have checked an [place] report on this patient and there are no aberrancies noted in the prescribing history.??If on a controlled substance or opioid a drug screen was completed and reviewed within the last year, and if there has not been a drug screen completed we ordered one today to monitor higher risk, state monitored pain medication use. As part of providing excellent, safe, comprehensive care, the following was completed at our patient's visit: 1. A medication reconciliation and review to ensure accurate knowledge of current/active medications, including asking our patients to inform us about any [id number] medications or herbal remedies/nutritional supplements/alternative remedies. 2. A review to specifically ensure our patients have had annual screening for screening for depression, screening for tobacco use, and screening for unhealthy alcohol use. For concerning screenings had a discussion with the patient, provided patient education, and recommended follow-up with primary care provider when appropriate. If patient noted with a risk of falling, they received education on strength, gait, and balance training to prevent future risk of falling. Portions of this note may have been carried over from the previous visit and updated as appropriate. Please note this office utilizes paper charting in addition to the electronic medical record. A list of current medications, vitals, and PMH is available there as the clinical staff outside of myself do not have access to [employer] charting during the clinic day operations. As part of providing quality comprehensive care the current medications, vitals, and PMH were reviewed in the paper chart. Assessment and Plan Assessment and Plan (1) Chronic neck pain: (2) Upper extremity weakness: (3) Lumbar stenosis with neurogenic claudication: Assessment and Plan: 11/09/24 bilateral L4-5 TFESI >80% improvement ongoing (4) Chronic use of opiate drug for therapeutic purpose: Plan minimal exam findings for chronic neck and BUE pain, will update cervical xray and refer to PT for neck pain and BUE weakness. can consider MRI if symptoms persist. continue f/u with neurology refill/continue tramadol 50mg BID PRN moderate to severe pain, utilizing appropriately without side effects continue f/u with PCP and podaitry f/u 3 months, sooner if needed
== END 2024-11-26 13:21 | disposition home or self-care (01) ==
LOC: PM 13:20
PROVIDERS: Family Provider Family Medicine; PCP Family Medicine; Visit Provider Nurse Practitioner
DX: M54.2 Cervicalgia (principal); M53.1 Cervicobrachial syndrome; M48.062 Spinal stenosis, lumbar region with neurogenic claudication; Z79.891 Long term (current) use of opiate analgesic
CPT/HCPCS: G0463

== ENCOUNTER 2024-12-02 14:36 | Outpatient (OUT) | payer MEDICARE, MEDICAID, SELFPAY ==
--- OUTSIDE RECORDS SUMMARY | 2024-11-23 14:45 | XMS_ITS | Encounter Summary ---
Author Organization [facility] Address [address] [place] [address] Care Team Providers Care Quantitative Strategy Analyst Name Role Phone Sandra Lewis DO Primary Care Provider [phone] Encounter Details Date Type Department Care Team (Late st Contact Info) Description 11/23/2024 2:45 PM EDT Office Visit [facility] [address] [place] [address] Marueen Fritz DPM [address] [place] [address] Ulcer of right foot with fat layer exposed (HCC) (Primary Dx); 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); Abscess of right foot; At increased risk for emergency hospital admission Social History Tobacco Use Types Packs/Day Years [...] Progress Notes * Maureen Fritz DPM - 11/23/2024 2:45 PM EDT Images from the original note [...] other complaints. Exam: General Examination: Foot Exam: 11/23/24 GENERAL APPEARANCE: awake, aware of surroundings, in [...] lateral 5th MPJ and medial 1st MPJ. HYPERKERATOSIS: Location: sub 1st MPJ right NAIL [...] inferior ulceration at 6 o'clock DRAINAGE: serous, significant pus from the area of increased depth and tracking proximally MALODOR: none BASE: granular WOUND EDGES: hyperkeratosis SURROUNDING TISSUE: intact, mild erythema, warmth- not improved with oral antibiotics SURROUNDING SOI: none Orthopedic: FOOT MORPHOLOGY: normal [...] surgical shoe for offloading/pressure reduction, but patient again does not have one on today. 6. Patient was advised if they notice any worsening to the ulceration site including signs of infection, N/F/V/C to call the office for an urgent appointment or go to the nearest emergency room. 7. RTC: 1 week. We already tried oral antibiotics but redness and infection around the joint has persisted. Due to this, I recommended that she go to the ER for admission. Patient is unsure if she wants to do this and may consider trying to be more compliant with offloading and use of the surgical shoe. We did take a culture last week so we can trial alternative antibiotics if she refuses hospital admission, butI am concerned about the wound, possible bone infection/abscess and feel that going to the ER is the best choice for admission, MRI and further treatment. Patient will follow-up with me in 1 week if she does decline. documented in this encounter Plan of Treatment Upcoming Encounters Date Type Department Care Team (Late st Contact Info) Description 12/11/2024 1:15 PM EDT Procedure Visit [facility] [place] [facility] [address] [place] [address] Luan Kincaid MD [address] [address] 12/18/2024 1:15 PM EDT Procedure Visit [facility] [address] [facility] [place] [address] Luan Kincaid MD [address] [phone] 01/19/2025 4:00 PM EDT Office Visit [facility] [address] [facility] [address] [place] [address] Luan Kincaid MD [address] [phone] documented as of this encounter Visit Diagnoses Diagnosis Ulcer of right foot with fat layer exposed (HCC)- Primary 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) Abscess of right foot Cellulitis and abscess of foot, except toes At increased risk for emergency hospital admission documented in this encounter Care Teams Quantitative Strategy Analyst Relationship Specialty Start Date End Date Sandra Lewis DO [address] [facility] [place] [address] PCP - General Family Medicine 10/15/24 documented as of this encounter
--- OUTSIDE RECORDS SUMMARY | 2024-12-02 14:39 | XMS_ITS | Patient Health Record ---
Author Organization [facility] Address [address] [place] [address] Care Team Providers Care Milling General Superintendent Name Role Phone Dr. Edgar Garcia Primary Care Provider [phone] Reason For Referral No Information Plan Of Treatment No Information Insurance Providers Payer Name Payer Address Payer Phone Subscriber Number Group Number Insured Name Patient Relationship to Insured Coverage Start Date Coverage End Date MEDICARE [place] [address] [place] [address] [phone] [id number] PRITI TAYE Self - patient is the insured 1 MEDICAID [facility] TO [facility] [address] [place] [address] [id number] TAYE MARCOS Self - patient is the insured 1 DENTAL MEDICAID [place] [address] [place] [address] [phone] [id number] TAYE MARCOS Self - patient is the insured 1
--- OUTSIDE RECORDS SUMMARY | 2024-12-02 14:39 | XMS_ITS | Encounter Summary ---
Author Organization [facility] Address [address] [place] [address] Phone Care Team Providers Care Music Minister Name Role Phone Sandra Lewis DO Primary Care Provider [phone] Encounter Details Date Type Department Care Team (Late st Contact Info) Description 09/14/2023 Scanned Document [facility] [address] [place] [phone] Scanning, Generic Provider Social History Tobacco Use [...] Office Visit [facility] [address] [facility] [address] [place] [address] Roland Faust MD 703 [facility] 2, [address] [place] [address] documented as of this encounter Visit Diagnoses Not on filedocumented in this encounter Care Teams Music Minister Relationship Specialty Start Date End Date Sandra Lewis DO [address] [facility] [place] [address] PCP - General Family Medicine 09/25/23 documented as of this encounter
--- OUTSIDE RECORDS SUMMARY | 2024-12-02 14:39 | XMS_ITS | Encounter Summary ---
Author Organization [facility] Address [address] [facility] [place] [address] Care Team Providers Care Registered Public Surveyor Name Role Phone Sandra Lewis Primary Care Provider [phone] Sandra Lewis DO Primary Care Provider [phone] Encounter Details Date Type Department Care Team (Late Contact Info) Description 10/30/2023 External Result Encounter N[facility] External Department Unsolicited Luan Kincaid MD [address] [place] [address] [phone] Social History Tobacco Use Types Packs/Day Years [...] Department Care Team (Late Contact Info) Description 12/11/2024 1:15 PM EDT Procedure Visit [facility] Neurology [address] [place] [address] Luan Kincaid MD [address] [place] [phone] 12/18/2024 1:15 PM EDT Procedure Visit [facility] [address] [facility] [[email or web address] [address] [place] [phone] Luan Kincaid MD [address] [phone] 01/19/2025 4:00 PM EDT Office Visit [facility] [address] [facility] [[email or web address]] [address] [place] [phone] Luan Kincaid MD [address] [phone] documented as of this encounter Procedures Procedure [...] DISEASE, WORST AT L5-S1. Impression dictated by: Edgra Segovia Jr., D.O.10/30/2023 3:15 PM Dictation Location: [place] [address] Transcribed By: [facility] 10/30/23 1515 Dictated By: Edgar Segovia Jr, DO 10/30/23 151 Signed By: <Electronically signed by Edgar Segovia Jr, DO in OV> 10/30/23 1515 Narrative 10/30/2023 3:[address] [facility] Main [address] [address] XRay Report Signed Patient: Kerry Gay MR#: [id number] 19 : 1955 Acct:[id number] Age/Sex: 67 / F ADM Date: 10/30/23 [...] 6V w bending Procedure Note Radiology, Radiologist, - 10/30/2023 [facility] Main [place] [address] [place] [address] XRay Report Signed Patient: Kerry Gay CMR#: [id number] 19 : 8Acct:[id number] Age/Sex: 67 / FADM Date: 10/30/23 Loc: [...] D.O.10/30/2023 3:15 PM Dictation Location: [place] [address] Transcribed By: [facility] 10/30/23 1514 Dictated By: Edgar Segovia Jr, DO 10/30/23 1514 Signed By: <Electronically signed by Edgar Segovia Jr, DO inOV> 10/30/23 1515 us Luan Kincaid MD IMG XR PROCEDURES Final Result documented in this encounter Visit Diagnoses Not on filedocumented in this encounter Care Teams Registered Public Surveyor Relationship Specialty Start Date End Date Sandra Lewis DO PCP - General Family Medicine 01/09/23 10/14/24 Sandra Lewis DO [address] [place] [address] PCP - General Family Medicine 10/15/24 documented as of this encounter
--- OUTSIDE RECORDS SUMMARY | 2024-12-02 14:39 | XMS_ITS | Encounter Summary ---
Author Organization [facility] Address [address] [place] [address] Care Team Providers Care Utilities Operator Name Role Phone Darrell Weinstein Primary Care Provider [phone] Nereida Castro MD Unavailable [phone] Source Comments In the event this information is protected by the Federal Confidentiality of Alcohol and Drug AbusePatient Records regulations: The Federal rules restrict any use of the information to criminally investigate or prosecute any alcohol or drug abuse patient.[facility] Encounter Details Date Type Department Care Team (Late st Contact Info) Description 2022 [place] [address] Provider, f Medicare Coverage of Physical Exams [...] N ot on file 04/03/2020 Data from: https://www.[email or web address].medicine.[email or web address].edu/. Last address used for calculation Not [...] on filedocumented in this encounter Care Teams Utilities Operator Relationship Specialty Start Date End Date Darrell Weinstein [address] [facility] [address] [place] [address] PCP - General Family Medicine 11/06/18 Nereida Castro MD [address] [facility] [address] [place] [address] Referring Obstetrics 11/06/18 documented as of this encounter
--- OUTSIDE RECORDS SUMMARY | 2024-12-02 14:39 | XMS_ITS | Clinical Summary ---
Author Organization [facility] Address [address] [place] [address] Phone Care Team Providers Care Aeronautics Commission Director Name Role Phone Debbie Sandra Rebecca BONNER Primary Care Provider [phone] Allergies Active Allergy Reactions Criticality Noted Date [...] Description 12/30/2024 1:40 PM EDT Office Visit [facility] 703 [facility] [address] [place] [address] Roland Faust MD [address] [facility] [address], [address] [place] [address] Health Maintenance Due Date Last [...] DUAL COMPLETE MEDICAID DUAL COMPLETE Care Teams Aeronautics Commission Director Relationship Specialty Start Date End Date Sandra Lewis DO [address] [place] [address] PCP - General Family Medicine 09/25/23
--- OUTSIDE RECORDS SUMMARY | 2024-12-02 14:39 | XMS_ITS | Encounter Summary ---
Author Organization [facility] Address [address] [facility] [place] [address] Care Team Providers Care Lunchroom Supervisor Name Role Phone Sandra Lewis Primary Care Provider [phone] Sandra Lewis DO Primary Care Provider [phone] Encounter Details Date Type Department Care Team (Late Contact Info) Description 12/17/2023 External Result Encounter N[facility]S External Department Unsolicited Luan Kincaid MD [address] [place] [address] [phone] Social History Tobacco Use Types Packs/Day Years [...] 1:15 PM EDT Procedure Visit [facility] Neurology [address] [place] [address] Luan Kincaid MD [address] [place] [address] [phone] 12/18/2024 1:15 PM EDT Procedure Visit [facility] [address] [place] [address] Luan Kincaid MD [address] [phone] 01/19/2025 4:00 PM EDT Office Visit [facility] [address] [place] [address] Luan Kincaid MD [address] [phone] documented as of this encounter Procedures Procedure [...] Luan Bowling M.D.12/17/2023 12:50 PM Dictation Location: [place] [address] Transcribed By: [facility] 12/17/23 1250 Dictated By: Luan Bowling II, MD 12/17/23 1240 Signed By: <Electronically signed by Luan Bowling II, MD in OV> 12/17/23 1250 Narrative 12/17/2023 12:53 PM EDT [facility] Main [address] [address] MRI Report Signed Patient: Kerry Gay MR#: [id number] 19 : 1955 Acct:[id number] Age/Sex: 68 / F ADM Date: 12/17/23 Loc: [facility]: Luan Kincaid MD Copies to: Luan Kincaid MD Ordering Provider: Luan Kincaid MD Date of Service: 12/17/23 MR/MR lumbar spine wo con: m54.17 ([id number]) XR/XR pre/post mri xray: post MRI lumbar [...] con Procedure Note Radiology, Radiologist, - 12/17/2023 [facility] Main [place] [address] [place] [address] MRI Report Signed Patient: Kerry Gay CMR#: [id number] 19 : 8Acct:[id number] Age/Sex: 68 / FADM Date: 12/17/23 Loc: [facility] Room:Type: [facility] Attending Dr: Luan Kincaid MD Copies to: Luan Kincaid MD Ordering Provider: Luan Kincaid MD Date of Service: 12/17/23 MR/MR lumbar spine wo con: m54.17 ([id number]) XR/XR pre/post mri xray: post MRI lumbar [...] Luan Bowling M.D.12/17/2023 12:50 PM Dictation Location: [place] [address] Transcribed By: [facility] 12/17/23 1250 Dictated By: Luan Bowling II, MD 12/17/23 1240 Signed By: <Electronically signed by Luan Bowling II, MD inOV> 12/17/23 1250 Luan Kincaid MD IMG MRI PROCEDURES Final Result documented in this encounter Visit Diagnoses Not on filedocumented in this encounter Care Teams Lunchroom Supervisor Relationship Specialty Start Date End Date Sandra Lewis DO PCP - General Family Medicine 01/09/23 10/14/24 Sandra Lewis DO [address] [place] [address] PCP - General Family Medicine 10/15/24 documented as of this encounter
--- OUTSIDE RECORDS SUMMARY | 2024-12-02 14:39 | XMS_ITS | Encounter Summary ---
Author Organization [facility] Address [address] [facility] [address] [place] [address] Care Team Providers Care Morgue Attendant Name Role Phone Sandra Lewis Primary Care Provider [phone] Sandra Lewis DO Primary Care Provider [phone] Encounter Details Date Type Department Care Team (Late Contact Info) Description 12/13/2023 Orders Only [facility] [address] [place] [address] Luan Kincaid MD [address] [place] [address] Social History Tobacco Use Types Packs/Day Years [...] 1:15 PM EDT Procedure Visit [facility] [address] [facility] [address] [place] [phone] Luan Kincaid MD [address] [address] 12/18/2024 1:15 PM EDT Procedure Visit [facility] [address] [facility] [address] [place] [address] Luan Kincaid MD [address] [phone] 01/19/2025 4:00 PM EDT Office Visit [facility] [address] [facility] [address] [place] [address] Luan Kincaid MD 5319 [facility] [address] [phone] documented as of this encounter Visit Diagnoses Not on filedocumented in this encounter Care Teams Morgue Attendant Relationship Specialty Start Date End Date Sandra Lewis DO PCP - General Family Medicine 01/09/23 10/14/24 Sandra Lewis DO [address] [facility] [place] [address] PCP - General Family Medicine 10/15/24 documented as of this encounter
--- OUTSIDE RECORDS SUMMARY | 2024-12-02 14:39 | XMS_ITS | Clinical Summary ---
Author Organization [facility] Address [address] [place] [address] Care Team Providers Care Special Education Para Professional Name Role Phone Sandra Lewis DO Primary Care Provider [phone] Allergies Active Allergy Reactions Criticality Noted Date Comments Sulfa Antibiotics GI intolerance,Unknown 2018 Medications Continuous Blood Gluc Sensor (MossoStyle Brent 14 Day Sensor) [facility] apply 1 SENSOR as directed every 14 days use with DEVICE to MONIT... (REFER TO PRESCRIPTION NOTES). 12/22/19 23 Active Toujeo SoloStar 300 UNIT/ML injection inject 20 units subcutaneously as directed 12/13/19 23 Active Droplet Pen [place] 32G X 4 MM [facility] use 1 PEN NEEDLE to inject MEDICATION [...] tablet Take 500 mg by mouth 08/26/19 24 Active cyanocobalamin (Vitamin B-12) 2500 MCG tablet 11/14/19 24 Active magnesium oxide (Mag-Ox) 400 (240 Mg) MG tablet Take 400 mg by mouth in the morning and 400 mg before bedtime. 01/02/20 24 Active carvedilol (Coreg) 12.5 MG tablet Take 12.5 mg by mouth in the morning and 12.5 mg in the evening. Take with meals. 03/09/20 24 025 Active donepezil (Aricept) 10 MG tabletIndicati ons:Cognitive decline 2 tabs QAM 60 tablet 5 07/22/19 25 Active memantine (Namenda) 10 MG tabletIndicati ons:Cognitive decline 1 tab BID 60 tablet 5 07/22/19 25 Active nortriptyline (Pamelor) 25 MG capsuleIndicat ions:Neurogeni c pain Take 1 capsule (25 mg) by mouth at bedtime 30 capsule 5 07/22/19 25 025 Active pregabalin (Lyrica) 300 MG capsuleIndicat ions:Neurogeni c pain TAKE 1 CAPSULE BY MOUTH TWICE A DAY 60 capsule 3 11/03/19 25 Active doxycycline (Vibra-Tabs) 100 MG tabletIndicati ons:Ulcer of right foot with fat layer exposed (HCC) Take 1 tablet (100 mg) by mouth in the morning and 1 tablet (100 mg) before bedtime. Do all this for 10 days. Take with a full glass of water and do not lie down for at least 30 minutes after. 20 tablet 11/17/19 25 025 Active Problems Problem Noted Date Diagnosed Date [...] 3:08 PM EDT): (Continue current regimen.) Get [facility] records - neuro consults, EEG, MR, carotids, echo, discharge summary. Assessment & Plan (04/07/2024 2:16 PM EST): Pt to retry donepezil 15 qam (or 10/5). Assessment & Plan (02/25/2024 2:59 PM EDT): Add memantine 10 -> bid. Then add donepezil 10, titrate. Handout. Get MR images transferred to [facility] PACS for my review. Guyon syndrome, [...] neuropathy, worsening. Get full set of labs ([facility]). We have some but not all - [...] Encounters Date Type Department Care Team Description 11/30/2024 Telephone [facility] [address] [place] [address] Maureen Fritz DPM Error (VOID this visit) 11/23/2024 2:45 PM EDT Office Visit [facility] [address] [place] [address] Maureen Fritz, DPM Ulcer of right foot with fat layer exposed (HCC) (Primary Dx); 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); Abscess of right foot; At increased risk for emergency hospital admission 11/23/2024 Bamboo flowsheet [facility] [address] [place] [address] Maureen Fritz, DPM 11/23/2024 Travel 11/20/2024 Telephone [facility] [address] [place] [address] Beatrice Boyd MA HH Orders Clarification 11/18/2024 Telephone [facility] [address] [place] [address] Beatrice Boyd MA HH Orders 11/18/2024 Telephone [facility] [address] [place] [address] Maureen Fritz, DPM 11/16/2024 4:00 PM EDT Office Visit [facility] [address] [place] [address] Maureen Fritz, DPM Ulcer of right foot with fat layer exposed (HCC) (Primary Dx); 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); Cellulitis of right foot; Deformity of toe, right 11/16/2024 External Result Encounter [facility]OMS External Department Unsolicited Maureen Fritz, DPM 11/16/2024 Travel 11/16/2024 Telephone [facility] [address] [place] [address] Shantel Parsons MA 10/31/2024 Refill [facility] [address] [place] [phone] Luan Kincaid MD Neurogenic pain 10/21/2024 Telephone [facility] 111 53[address] [facility] [address] [address] Luan Kincaid MD 10/20/2024 10:45 AM EDT Office Visit [facility] [address] [place] [address] Maureen Fritz, DPM Ulcer of right foot with fat layer exposed (HCC) (Primary Dx); 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); Blister of right foot, initial encounter; Deformity, foot, right 10/20/2024 Bamboo flowsheet [facility] [address] [place] [address] Maureen Fritz, DPM 10/20/2024 Travel 10/15/2024 Telephone [facility] [place] [facility] [address] [place] [address] Maureen Fritz, DPM 10/07/2024 Telephone [facility] [address] [facility] [address] [address] Luan Kincaid MD 10/06/2024 1:45 PM EDT Office Visit [facility] [address] [place] [address] Luan Kincaid MD Weakness of both lower extremities (Primary Dx); Carpal tunnel syndrome, bilateral; Cognitive decline; Cervical paraspinal muscle spasm; B12 deficiency; Guyon syndrome, unspecified laterality; Numbness; Leg pain, left; Leg pain, right; Bilateral leg weakness 10/06/2024 Bamboo flowsheet [facility] [address] [place] [address] Luan Kincaid MD 10/06/2024 Travel from Last [...] Description 12/11/2024 1:15 PM EDT Procedure Visit [facility] [address] [phone] Luan Kincaid MD [address] [address] 12/18/2024 1:15 PM EDT Procedure Visit [facility] [address] [facility] [place] [address] Luan Kincaid MD [address] [address] 01/19/2025 4:00 PM EDT Office Visit [facility] [address] [facility] [place] [address] Luan Kincaid MD 5319 [facility] [place] [phone] Procedures Procedure Name Priority Date/Time Associated Diagnosis [...] Laterality Modality Lower Extremities, Foot Right [facility]iogra [facility] Imaging Narrative 11/16/2024 5:13 PM EDT Imaging [...] EDT) AZITHROMYCIN <2(S) 11/18/2024 9:54 AM EDT [facility] CEFTAROLINE <0.5(S) 11/18/2024 9:54 AM EDT [facility] CIPROFLOXACIN <1(S) 11/18/2024 9:54 AM EDT [facility] CLINDAMYCIN 0.5(S) 11/18/2024 9:54 AM EDT [facility] DAPTOMYCIN 1(S) 11/18/2024 9:54 AM EDT [facility] LEVOFLOXACIN <1(S) 11/18/2024 9:54 AM EDT [facility] LINEZOLID 2(S) 11/18/2024 9:54 AM EDT [facility] OXACILLIN <0.25(S) 11/18/2024 9:54 AM EDT [facility] PENICILLIN >2(R) 11/18/2024 9:54 AM EDT [facility] TETRACYCLINE <4(S) 11/18/2024 9:54 AM EDT [facility] TRIMETHOPRIM/SULF AMETHOXAZOLE <0.5/9.5( S) 11/18/2024 9:54 AM EDT [facility] VANCOMYCIN 1(S) 11/18/2024 9:54 AM EDT [facility] Other Structure of right foot / Unknown 11/16/2024 4:48 PM EDT 11/16/2024 5:30 PM EDT Comment:Ulcer Maureen Fritz M [facility] Final Resu lt Performing Organization Address [facility]/State/ZIP Co de Phone Number [facility] [address] [place] [phone], [facility] [address] [place] [phone] * (ABNORMAL) AEROBIC FAMILIA CHARGE ([id number]) (11/16/2024 4:48 PM EDT) AMIKACIN <16(S) 11/18/2024 9:54 AM EDT [facility] AMOXACILLIN/K CLAVULANATE <8/4(S) 11/18/2024 9:54 AM EDT [facility] AMPICILLIN/SULBAC ARREDONDO 8/4(S) 11/18/2024 9:54 AM EDT [facility] AZTREONAM <4(S) 11/18/2024 9:54 AM EDT [facility] CEFAZOLIN >16(R) 11/18/2024 9:54 AM EDT [facility] CEFEPIME <2(S) 11/18/2024 9:54 AM EDT [facility] CEFTAZIDIME <1(S) 11/18/2024 9:54 AM EDT [facility] CEFTAZIDIME/AVIBA CTAM <4(S) 11/18/2024 9:54 AM EDT [facility] CEFTOLOZANE/TAZOB ACTAM <2(S) 11/18/2024 9:54 AM EDT [facility] CEFTRIAXONE <1(S) 11/18/2024 9:54 AM EDT [facility] CEFUROXIME 8(S) 11/18/2024 9:54 AM EDT [facility] CIPROFLOXACIN <0.25(S) 11/18/2024 9:54 AM EDT [facility] ERTAPENEM <0.5(S) 11/18/2024 9:54 AM EDT [facility] GENTAMICIN <2(S) 11/18/2024 9:54 AM EDT [facility] LEVOFLOXACIN <0.5(S) 11/18/2024 9:54 AM EDT [facility] MEROPENEM <1(S) 11/18/2024 9:54 AM EDT [facility] MEROPENEM/VABORBA CTAM <2(S) 11/18/2024 9:54 AM EDT [facility] PIPERACILLIN/TAZO BACTAM <8(S) 11/18/2024 9:54 AM EDT [facility] TETRACYCLINE <4(S) 11/18/2024 9:54 AM EDT [facility] TIGECYCLINE <2(S) 11/18/2024 9:54 AM EDT [facility] TOBRAMYCIN <2(S) 11/18/2024 9:54 AM EDT [facility] TRIMETHOPRIM/SULF AMETHOXAZOLE <0.5/9.5( S) 11/18/2024 9:54 AM EDT [facility] Other Structure of right foot / Unknown 11/16/2024 4:48 PM EDT 11/16/2024 5:30 PM EDT Comment:Ulcer Maureen Fritz DPM [facility] Final Resu lt Performing Organization Address [facility] Co de Phone Number [facility] [address] [place] [address], [facility] [address] [place] [address] * SUPERFICIAL WOUND CULTURE ([facility]) (11/16/2024 4:48 PM EDT) [facility] ORGANISM Klebsiella oxytoca 9:54 AM EDT [facility] QUANTITY OF GROWTH Moderate Growth 11/18/2024 9:54 AM EDT [facility] ORGANISM Staphylococcus aureus 11/18/2024 9:54 AM EDT [facility] QUANTITY OF GROWTH Heavy Growth 11/18/2024 9:54 AM EDT [facility] Other Structure of right foot / Unknown 11/16/2024 4:48 PM EDT 11/16/2024 5:30 PM EDT Comment:Ulcer Maureen Fritz DP[facility] LAB MICROBIOLOGY - GENERAL ORDERABLES Final Result Performing Organization Address [facility] Co de Phone Number [facility] [address] [place] [address], [facility] [address] [place] [address] from Last 3 Months Insurance [employer] MEDICARE [place]ICAID [place] Care Teams Special Education Para Professional Relationship Specialty Start Date End Date Sandra Lewis DO [address] [facility] [place] [phone] PCP - General Family Medicine 10/15/24
--- OUTSIDE RECORDS SUMMARY | 2024-12-02 14:39 | XMS_ITS | Clinical Summary ---
Author Organization [facility] Address [address] [place] [address] Care Team Providers Care Chocolate Production Machine Operator Name Role Phone Darrell Weinstein Primary Care Provider [phone] Nereida Castro MD Unavailable [phone] Allergies Active Allergy Reactions Criticality Noted [...] N ot on file 04/03/2020 Data from: [email or web address] Last address used for calculation Not [...] COMP METABOLIC PANEL (12/17/2018 3:05 PM EDT) [facility] Protein, Total 7.6 6.3 - 8.0 g/dL 12/18/2018 3:35 AM [facility] Albumin 4.2 3.9 - 4.9 g/dL 12/18/2018 3:35 AM [facility] Calcium 10.6(H) 8.5 - 10.2 mg/dL 12/18/2018 3:35 AM [facility] Bilirubin, Total 0.3 0.2 - 1.3 mg/dL 12/18/2018 3:35 AM [facility] Alkaline Phosphatase 88 34 - 123 U/L 12/18/2018 3:35 AM [facility] AST 28 13 - 35 U/L 12/18/2018 3:35 AM [facility] Glucose 89 74 - 99 mg/dL 12/18/2018 3:35 AM [facility] Comment: The [place] Diabetes Association (ADA) provides guidance for cutoff [...] Standards of Medical Care in Diabetes 2016, [place] Diabetes Association. Diabetes Care. 2016.39(Suppl 1). BUN 10 7 - 21 mg/dL 12/18/2018 3:35 AM [facility] Creatinine 0.73 0.58 - 0.96 mg/dL 12/18/2018 3:35 AM [facility] Sodium 138 136 - 144 mmol/L 12/18/2018 3:35 AM [facility] Potassium 4.4 3.7 - 5.1 mmol/L 12/18/2018 3:35 AM [facility] Chloride 100 97 - 105 mmol/L 12/18/2018 3:35 AM EDT [facility] CO2 21(L) 22 - 30 mmol/L 12/18/2018 3:35 AM EDT [facility] Anion Gap 17 9 - 18 mmol/L 12/18/2018 3:35 AM EDT [facility] ALT 22 7 - 38 U/L 12/18/2018 3:35 AM EDT [facility] eGFR- >60 12/18/2018 3:35 AM EDT [facility] eGFR-All Other Races >60 . 12/18/2018 3:35 AM EDT [facility] Comment: eGFR (Estimated GFR) Units of [...] EDT 12/17/2018 3:07 PM EDT Shantel Celestin APRN.[facility] Final R esult [facility] [address] [place] [address] [facility] [address] [place] [address] from Last 3 Months or Most Recently Relevant to Health Maintenance Insurance [facility]LY [facility] MEDICARE ADVANTAGE HMO Care Teams Chocolate Production Machine Operator Relationship Specialty Start Date End Date Darrell Weinstein [address] [facility] [address] [place] [address] PCP - General Family Medicine 11/06/18 Nereida Castro MD [address] [facility] [address] [place] [address] Referring Obstetrics 11/06/18
--- OUTSIDE RECORDS SUMMARY | 2024-12-02 14:40 | XMS_ITS | Encounter Summary ---
Author Organization [facility] Address [address] [place] [address] Phone Care Team Providers Care Network Engineering Advisor Name Role Phone Sandra Lewis DO Primary Care Provider [phone] Encounter Details Date Type Department Care Team (Late st Contact Info) Description 11/12/2023 Scanned Document [facility] [address] [place] [phone] Scanning, Generic Provider Social History Tobacco Use [...] Description 12/30/2024 1:40 PM EDT Office Visit [facility] [address] [facility] [address] [place] [address] Roland Fauts MD [address] [facility] [address], [address] [place] [address] documented as of this encounter Visit Diagnoses Not on filedocumented in this encounter Additional Health Concerns Assessment Noted Time A fall risk assessment has been complete d for the patient 10/07/2023 9:51 AM EDT documented as of this encounter Care Teams Network Engineering Advisor Relationship Specialty Start Date End Date Sandra Lewis DO 2520 [facility] [place] [address] PCP - General Family Medicine 09/25/23 documented as of this encounter
--- OUTSIDE RECORDS SUMMARY | 2024-12-02 14:40 | XMS_ITS | Encounter Summary ---
Author Organization [facility] Address [address] [place] [address] Phone Care Team Providers Care Intelligence Chief Name Role Phone Sandra Lewis DO Primary Care Provider [phone] Encounter Details Date Type Department Care Team (Late st Contact Info) Description 12/02/2023 Scanned Document [facility] [address] [place] [phone] Scanning, Generic Provider Social History Tobacco Use [...] Description 12/30/2024 1:40 PM EDT Office Visit [facility] 703 [facility] [address] [place] [address] Roland Faust MD 703 [facility] 2, [address] [place] [address] documented as of this encounter Visit Diagnoses Not on filedocumented in this encounter Additional Health Concerns Assessment Noted Time A fall risk assessment has been complete d for the patient 11/13/2023 1:54 PM EDT documented as of this encounter Care Teams Intelligence Chief Relationship Specialty Start Date End Date Sandra Lewis DO 2520 [facility] [place] [address] PCP - General Family Medicine 09/25/23 documented as of this encounter
--- OUTSIDE RECORDS SUMMARY | 2024-12-02 14:40 | XMS_ITS | Encounter Summary ---
Author Organization [facility] Address [address] [place] [address] Care Team Providers Care Optical Glass Wet Inspector Name Role Phone Sandra Lewis DO Primary Care Provider [phone] Encounter Details Date Type Department Care Team (Late Contact Info) Description 11/23/2024 Bamboo flowsheet [facility] [address] [place] [address] Maureen Fritz DPM [address] [place] [address] Social History Tobacco Use Types Packs/Day Years [...] Description 12/11/2024 1:15 PM EDT Procedure Visit [facility] [address] [place] [address] Luan Kincaid MD [address] [facility] [address] [place] [address] 12/18/2024 1:15 PM EDT Procedure Visit [facility] [address] [facility] [place] [address] Luan Kincaid MD [address] [id number] 01/19/2025 4:00 PM EDT Office Visit [facility] [address] [facility] [address] [place] [address] Luan Kincaid MD [address] [address] documented as of this encounter Visit Diagnoses Not on filedocumented in this encounter Care Teams Optical Glass Wet Inspector Relationship Specialty Start Date End Date Sandra Lewis DO 2520 [facility] [place] [address] PCP - General Family Medicine 10/15/24 documented as of this encounter
--- OUTSIDE RECORDS SUMMARY | 2024-12-02 14:40 | XMS_ITS | Encounter Summary ---
Author Organization [facility] Address [address] [place] [address] Care Team Providers Care Assessor Name Role Phone Sandra Lewis DO Primary Care Provider [phone] Reason for Visit * Reason Onset Date Comments Error (VOID this visit) 11/30/2024 Encounter Details Date Type Department Care Team ([facility] Contact Info) Description 11/30/2024 Telephone [facility] [address] [facility] [place] [address] Maureen Fritz DPM [address] [place] [address] Error (VOID this visit) Social History Tobacco Use Types Packs/Day Years [...] Upcoming Encounters Date Type Department Care Team ([facility] Contact Info) Description 12/11/2024 1:15 PM EDT Procedure Visit [facility] [address] [place] [address] Luan Kincaid MD 53[address] [facility] [address] [id number] 12/18/2024 1:15 PM EDT Procedure Visit [facility] [address] [facility] [address] [place] [address] Luan Kincaid MD [address] [id number] 01/19/2025 4:00 PM EDT Office Visit [facility] [address] [facility] [address] [place] [address] Luan Kincaid MD [address] [id number] documented as of this encounter Visit Diagnoses Not on filedocumented in this encounter Care Teams Assessor Relationship Specialty Start Date End Date Sandra Lewis DO 2520 [facility] [place] [address] PCP - General Family Medicine 10/15/24 documented as of this encounter
--- OUTSIDE RECORDS SUMMARY | 2024-12-02 14:40 | XMS_ITS | Encounter Summary ---
Author Organization [facility] Address [address] [place] [address] Phone Care Team Providers Care Stacker Attendant Name Role Phone Sandra Lewis Primary Care Provider [phone] Encounter Details Date Type Department Care Team (Late st Contact Info) Description 09/12/2023 Scanned Document [facility] [address] [place] [phone] Scanning, Generic Provider Social History Tobacco Use [...] Description 12/30/2024 1:40 PM EDT Office Visit [facility] [address] [address] Roland Faust MD 703 [facility] 2, [address] [place], [place] [phone] documented as of this encounter Procedures Procedure [...] on filedocumented in this encounter Care Teams Stacker Attendant Relationship Specialty Start Date End Date Sandra Lewis DO 2520 [place] [address] PCP - General Family Medicine 09/25/23 documented as of this encounter
--- OUTSIDE RECORDS SUMMARY | 2024-12-02 14:40 | XMS_ITS | Encounter Summary ---
Author Organization [facility] Address [address] [place] [address] Phone Care Team Providers Care Slitter And Cutter Operator Name Role Phone Sandra Lewis DO Primary Care Provider [phone] Encounter Details Date Type Department Care Team (Late st Contact Info) Description 2023 Scanned Document [facility] [address] [place] [phone] Scanning, Generic Provider Social History Tobacco Use [...] Office Visit [facility] 703 [facility] [address] [place] [address] Roland Faust MD 7[address] [facility] [address], [address] [place] [address] documented as of this encounter Visit Diagnoses Not on filedocumented in this encounter Additional Health Concerns Assessment Noted Time A fall risk assessment has been complete d for the patient 11/13/2023 1:54 PM EDT documented as of this encounter Care Teams Slitter And Cutter Operator Relationship Specialty Start Date End Date Sandra Lewis DO 2520 [facility] [place] [address] PCP - General Family Medicine 09/25/23 documented as of this encounter
--- OUTSIDE RECORDS SUMMARY | 2024-12-02 14:40 | XMS_ITS | Encounter Summary ---
Author Organization [facility] Address [address] [place] [address] Phone Care Team Providers Care Wedger Machine Name Role Phone Sandra Lewis DO Primary Care Provider [phone] Encounter Details Date Type Department Care Team (Late st Contact Info) Description 11/10/2023 Scanned Document [facility] [address] [place] [address] Scanning, Generic Provider Social History Tobacco Use [...] Description 12/30/2024 1:40 PM EDT Office Visit [facility] 703 [facility] [address] [place] [address] Roland Faust MD 703 [facility] [address], [address] [place] [address] documented as of this encounter [...] documented as of this encounter Care Teams Wedger Machine Relationship Specialty Start Date End Date Sandra Lewis DO 0[address] [facility] [place] [address] PCP - General Family Medicine 09/25/23 documented as of this encounter
--- OUTSIDE RECORDS SUMMARY | 2024-12-02 14:40 | XMS_ITS | Encounter Summary ---
Author Organization [facility] Address [address] [place] [address] Phone Care Team Providers Care Cover Making Machine Operator Name Role Phone Sandra Lewis DO Primary Care Provider [phone] Encounter Details Date Type Department Care Team (Late st Contact Info) Description 09/13/2023 Scanned Document [facility] [address] [place] [phone] Scanning, Generic Provider Social History Tobacco Use [...] 1:40 PM EDT Office Visit [facility] [address] [facility] [address] [place] [address] Roland Faust MD 703 [facility] 2, [address] [place] [address] documented as of this encounter Visit Diagnoses Not on filedocumented in this encounter Care Teams Cover Making Machine Operator Relationship Specialty Start Date End Date Sandra Lewis DO [address] [facility] [place] [address] PCP - General Family Medicine 09/25/23 documented as of this encounter
--- OUTSIDE RECORDS SUMMARY | 2024-12-02 14:40 | XMS_ITS | Encounter Summary ---
Author Organization [facility] Address [address] [place] [address] Phone Care Team Providers Care Foam Rubber Curer Name Role Phone Sandra Lewis DO Primary Care Provider [phone] Encounter Details Date Type Department Care Team (Late st Contact Info) Description 11/09/2023 Scanned Document [facility] [address] [place] [phone] Scanning, Generic Provider Social History Tobacco Use [...] Description 12/30/2024 1:40 PM EDT Office Visit [place] [address] [facility] [address] [place] [address] Roland Faust MD 703 [facility] 2, [address] [place] [address] documented as of this encounter Visit Diagnoses Not on filedocumented in this encounter Additional Health Concerns Assessment Noted Time A fall risk assessment has been complete d for the patient 10/07/2023 9:51 AM EDT documented as of this encounter Care Teams Foam Rubber Curer Relationship Specialty Start Date End Date Sandra Lewis DO [address] [place] [address] PCP - General Family Medicine 09/25/23 documented as of this encounter
--- OUTSIDE RECORDS SUMMARY | 2024-12-02 14:40 | XMS_ITS | Encounter Summary ---
Author Organization [facility] Address [address] [place] [address] Phone Care Team Providers Care Planning Rn Name Role Phone Sandra Lewis DO Primary Care Provider [phone] Encounter Details Date Type Department Care Team (Late st Contact Info) Description 04/28/2024 Scanned Document [facility] [address] [place] [address] Scanning, Generic Provider Social History Tobacco Use [...] Description 12/30/2024 1:40 PM EDT Office Visit [facility] [address] [address] Roland Faust MD 703 [facility] 2, [address] [place] [address] documented as of this encounter [...] documented as of this encounter Care Teams Planning Rn Relationship Specialty Start Date End Date Sandra Lewis DO 2520 [place] [address] PCP - General Family Medicine 09/25/23 documented as of this encounter
--- OUTSIDE RECORDS SUMMARY | 2024-12-02 14:40 | XMS_ITS | Encounter Summary ---
Author Organization [facility] Address [address] [place] [address] Phone Care Team Providers Care Well Cleaner Name Role Phone Sandra Lewis DO Primary Care Provider [phone] Encounter Details Date Type Department Care Team (Late st Contact Info) Description 04/30/2024 Scanned Document [facility] [address] [place] [phone] Scanning, Generic Provider Social History Tobacco Use [...] Description 12/30/2024 1:40 PM EDT Office Visit [facility] 703 [facility] 250 [place] [address] Roland Faust MD 703 [facility] 2, [address] [place] [address] documented as of this encounter Visit Diagnoses Not on filedocumented in this encounter Additional Health Concerns Assessment Noted Time A fall risk assessment has been complete d for the patient 12/16/2023 10:41 AM EDT documented as of this encounter Care Teams Well Cleaner Relationship Specialty Start Date End Date Sandra Lewis DO [address] [place] [address] PCP - General Family Medicine 09/25/23 documented as of this encounter
--- OUTSIDE RECORDS SUMMARY | 2024-12-02 14:40 | XMS_ITS | Encounter Summary ---
Author Organization [facility] Address [address] [email or web address] [place] [address] Care Team Providers Care Mobile Lounge Driver Name Role Phone Sandra Lewis DO Primary Care Provider [phone] Encounter Details Date Type Department Care Team [...] Procedure Visit [facility] [address] [facility] [address] [place] [address] Luan Kincaid MD [address] [place] [address] 12/18/2024 1:15 PM EDT Procedure Visit [facility] [address] [email or web address] [address]án [address] [place] [address] Luan Kincaid MD [address] [place] [address] 01/19/2025 4:00 PM EDT Office Visit [facility] [address] [place] [address] Luan Kincaid MD [address] [facility] [address] [place], [place] [address] documented as of this encounter Visit Diagnoses Not on filedocumented in this encounter Care Teams Mobile Lounge Driver Relationship Specialty Start Date End Date Sandra Lewis DO [address] [facility] [place] [address] PCP - General Family Medicine 10/15/24 documented as of this encounter
--- OUTSIDE RECORDS SUMMARY | 2024-12-02 14:40 | XMS_ITS | Encounter Summary ---
Author Organization [facility] Address [address] [place] [address] Care Team Providers Care Surgical Tech Name Role Phone Sandra Lewsi DO Primary Care Provider [phone] Encounter Details Date Type Department Care Team (Late st Contact Info) Description 11/18/2024 Telephone [facility] [address] [place] [address] Maureen Fritz DPM [address] [place] [address] Social History Tobacco Use Types Packs/Day Years [...] [facility] [address] [facility] [place] [address] Luan Kincaid MD [address] [phone] 12/18/2024 1:15 PM EDT Procedure [facility] [address] [facility] [place] [address] Luan Kincaid MD [address] [address] 01/19/2025 4:00 PM EDT Office Visit [facility] [address] [facility] [place] [address] Luan Kincaid MD [address] [address] documented as of this encounter Visit Diagnoses Not on filedocumented in this encounter Care Teams Surgical Tech Relationship Specialty Start Date End Date Sandra Lewis DO 2520 [facility] [place] [place] [address] PCP - General Family Medicine 10/15/24 documented as of this encounter
--- OUTSIDE RECORDS SUMMARY | 2024-12-02 14:40 | XMS_ITS | Encounter Summary ---
Author Organization [facility] Address [address] [place] [address] Phone Care Team Providers Care Health Physics Technician Name Role Phone Sandra Lewis DO Primary Care Provider [phone] Encounter Details Date Type Department Care Team (Late st Contact Info) Description 11/11/2023 Scanned Document [facility] [address] [place] [address] Scanning, Generic Provider Social History Tobacco Use [...] Description 12/30/2024 1:40 PM EDT [facility] Visit [facility] 703 [facility] [address] [place] [address] Roland Faust MD 703 [facility] [address], [address] [place] [address] documented as of this encounter Visit Diagnoses Not on filedocumented in this encounter Additional Health Concerns Assessment Noted Time A fall risk assessment has been complete d for the patient 10/07/2023 9:51 AM EDT documented as of this encounter Care Teams Health Physics Technician Relationship Specialty Start Date End Date Sandra Lewis DO 2520 [facility] [place] [address] PCP - General Family Medicine 09/25/23 documented as of this encounter
--- OUTSIDE RECORDS SUMMARY | 2024-12-02 14:40 | XMS_ITS | Encounter Summary ---
Author Organization [facility] Address [address] [place] [address] Phone Care Team Providers Care Forensic Investigator Name Role Phone Sandra Lewis DO Primary Care Provider Encounter Details Date Type Department Care Team (Late st Contact Info) Description 01/06/2024 Scanned Document [facility] [address] [place] [phone] Scanning, Generic Provider Social History Tobacco Use [...] Description 12/30/2024 1:40 PM EDT Office Visit [facility] 703 [facility] [address] [place] [address] Roland Faust MD 703 [facility] [address], [address] [place] [address] Scheduled Orders Name Type Priority Associated Diagnoses Orde r Schedule Ultrasound- On[facility] Scan Imaging O rdered: 01/06/2024 documented as of this encounter Visit Diagnoses Not on filedocumented in this encounter Additional Health Concerns Assessment Noted Time A fall risk assessment has been complete d for the patient 12/16/2023 10:41 AM EDT documented as of this encounter Care Teams Forensic Investigator Relationship Specialty Start Date End Date Sandra Lewis DO 2520 [place] [address] PCP - General Family Medicine 09/25/23 documented as of this encounter
--- OUTSIDE RECORDS SUMMARY | 2024-12-02 14:40 | XMS_ITS | Encounter Summary ---
Author Organization [facility] Address [address] [place] [address] Care Team Providers Care Parts Identification Technician Name Role Phone Sandra Lewis DO Primary Care Provider [phone] Reason for Visit * Reason Onset Date Comments HH Orders Clarification 11/20/2024 Encounter Details Date Type Department Care Team (Late st Contact Info) Description 11/20/2024 Telephone [facility] [address] [place] [address] Beatrice Boyd MA HH Orders Clarification Social [...] Boyd MA - 11/24/2024 4:50 PM EDT [facility] was called regarding the above. LVM advising the above and to call our office if they have any questions. * Telephone Encounter - Maureen Fritz DPM - 11/24/2024 12:16 PM EDT Please advise [facility] that her right foot wound was much worse and I recommended that she go to the ER for admission, MRI, possible surgery. New orders will be given once she is discharged. * Telephone Encounter - Maureen Fritz DPM - 11/23/2024 1:50 PM EDT Patient is to be seen today and I can update [facility] order based on how her foot looks after her visit. * Telephone Encounter - Beatrice Boyd MA - 11/20/2024 12:31 PM EDT Alexandria from [facility] called regarding a clarification needed for the [...] 12/11/2024 1:15 PM EDT Procedure Visit [facility] [address] [facility] [address] [place] [phone] Luan Kincaid MD [address] [place] [id number] 12/18/2024 1:15 PM EDT Procedure Visit [facility] [address] [facility] [address] [place] [phone] Luan Kincaid MD [address] [address] 01/19/2025 4:00 PM EDT Office Visit [facility] [address] [facility] [address] [place] [address] Luan Kincaid MD [address] [facility] [address] [place] [address] documented as of this encounter Visit Diagnoses Not on filedocumented in this encounter Care Teams Parts Identification Technician Relationship Specialty Start Date End Date Sandra Lewis DO [address] [facility] [place] [phone] PCP - General Family Medicine 10/15/24 documented as of this encounter
--- OUTSIDE RECORDS SUMMARY | 2024-12-02 14:40 | XMS_ITS | Encounter Summary ---
Author Organization [facility] Address [address] [place] [place] [address] Care Team Providers Care Psychiatric Np Name Role Phone Sandra Lewis DO Primary Care Provider [phone] Reason for Visit * Reason Onset Date Comments HH Orders 11/18/2024 Encounter Details Date Type Department Care Team (Late st Contact Info) Description 11/18/2024 Telephone [facility] [address] [place] [address] Beatrice Boyd MA HH Orders Social History [...] - 11/18/2024 1:45 PM EDT Alexandria from [facility] called and was wondering if we could fax over HH orders to [phone]. documented in this encounter Plan of Treatment Upcoming Encounters Date Type Department Care Team (Late st Contact Info) Description 12/11/2024 1:15 PM EDT Procedure Visit [facility] [address] [facility] [place] [phone] Luan Kincaid MD [address] [id number] 12/18/2024 1:15 PM EDT Procedure Visit [facility] [address] [facility] [place] [phone] Luan Kincaid MD [address] [address] 01/19/2025 4:00 PM EDT Office Visit [facility] [address] 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 [place] [phone] PCP - General Family Medicine 10/15/24 documented as of this encounter
== END 2024-12-02 14:37 | disposition home or self-care (01) ==
LOC: WC 14:36
PROVIDERS: Family Provider Family Medicine; PCP Family Medicine; Visit Provider Podiatrist Foot & Ankle Surgery
DX: E11.621 Type 2 diabetes mellitus with foot ulcer (principal); L97.415 Non-pressure chronic ulcer of right heel and midfoot with muscle involvement without evidence of necrosis
CPT/HCPCS: 11043; G0463

== ENCOUNTER 2024-12-16 10:25 | Outpatient (OUT) | payer MEDICARE, MEDICAID, SELFPAY ==
--- OUTSIDE RECORDS SUMMARY | 2024-12-16 10:35 | XMS_ITS | CCD ---
Author Organization [facility] Care Team Providers Care Negative Stripper Name Role Phone MATTHEW VOSS MD Unavailable [...] Unava ilable DO Rl Villavicencio Emergency Provider [phone] Francesca Santos Attending Unavailable ARLEEN STEPHEN Referring Unavailable Teresa Strong Attending Unavailable ARLEEN STEPHEN Referring Unavailable Teresa Strong Attending Unavailable Teresa Strong Attending Unavailable Sandra Keita Unavailable Tolu Salinas Unavailable DO Sandra Keita Primary Care Provider [phone] DO Sandra Keita Attending Provider Reyna Dallas [...] Stephanie Stoll Other Provider MD Jann Kaplan Nabeccaeb Other Provider MD Cara Tenorio Other Provider Fidel [facility] Elizabeth Samayoa Other Provider MD Ashley Cheatham Other Provider Debbie BONNER, Sandra A Primary Care Provider Debbie, Sandra A Primary Care Provider MD Oz Kincaid Attending Provider MD Jonas Ch Attending Provider DO Rl Villavicencio Emergency Provider [phone] DO Jluis Campos Admit Provider [phone] DO Jluis Campos Attending Provider Saranya Wright Other Provider Unavailable Fya, PhD Cash Other Provider [phone] DO Jelly Tuttle Other Provider MD John Murillo Other Provider [phone] DO Lit Clark Other Provider [facility] Dayana Other Provider DO Roque Isidro Other Provider NITZA Calvo Other Provider CHERYL Medina Other Provider [facility] Jeanine E Other Provider MD Chaka Frye Attending Provider DO Rl Villavicencio Emergency Provider DO Jluis Campos Admit Provider Saranya Wright Other Provider Unavailable Fay, PhD Cash Other Provider DO Jelly Tuttle Other Provider MD John Murlilo Other Provider DO Lit Clark Other Provider Dar [facility] Dayana Other Provider DO Roque Isidro Other Provider NITZA Calvo Other Provider CHERYL Medina Other Provider [facility] Jeanine E Other Provider MD Chaka Frye Attending Provider NITZA Salinas Referring Provider [phone] Keita, DO Sandra A Primary Care Provider MD Jonas Ch Referring Provider MD Thuan Wise Attending Provider BARRIE Fritz Attending Provider Keita DO, Sandra Primary Care Provider Keita, DO Sandra A Primary Care Provider MD Oz Kincaid Attending Provider Keita DO, Sandra A Primary Care Provider [phone] Manjit Gleason MD Attending Provider [phone] Rl Villavicencio DO Emergency Provider Wesley Villafuerte PA-C Emergency Provider Jori Hearn DO Admit Provider Jori Hearn DO Attending Provider Priscilla Lang MD Attending Provider Lit Clark DO Other Provider Keita DO, Sandra A Primary Care Provider Keita DO, Sandra A Attending Provider Keita DO, Sandra A Primary Care Provider Thuan Wise MD Attending Provider Angelique Russell APRN Other Provider Nataliya Jane APRN Attending Provider Oz Kincaid MD Referring Provider [phone] KEITA, SANDRA A Primary Care Unavailable JONAS CH Attending Unavailable KEITA, SANDRA A Primary Care Unavailable JONAS CH Attending Unavailable KEITA, SANDRA A Primary Care Unavailable JONAS CH Referring Unavailable THUAN WISE Referring Unavailable KEITA, SANDRA A Primary Care Unavailable THUAN WISE Attending Unavailable KEITA, SANDRA A Primary Care Unavailable TRABOULSSI, MOURHAF Referring Unavailable TRABANA MARÍA, HANF Attending Unavailable TRABOULTWANI, MOGAYHAF Referring Unavailable KEITA, SANDRA A Primary Care Unavailable TRABOULSSEmi, HANF Attending Unavailable JONAS CH Referring Unavailable KEITA, SANDRA A Primary Care Unavailable Keita DO, Sandra A Primary Care Provider [phone] Rl Villavicencio DO Emergency Provider Wesley Villafuerte PA-C Emergency Provider Dhiraj BONNER, Jori Admit Provider Priscilla Lang MD Attending Provider Lit Clark DO Other Provider Keita DO, Sandra A Attending Provider Thuan Wise MD Attending Provider Angelique Russell APRN Other Provider Nataliya Jane APRN Attending Provider Codi VARGAS, Oz Snyder Referring Provider Deneen Frost PA-C Attending Provider Keita DO, Sandra A Primary Care Provider Keita DO, Sandra A Primary Care Provider Manjit Gleason MD Attending Provider Keita DO, Sandra A Primary Care Provider Keita DO, Sandra Primary Care Provider Keita DO, Sandra Primary Care Provider Monico VARGAS, Halie Doss Attending Unavailable Monico VARGAS, Halie Doss Attending Unavailable Keita DO, Sandra A Primary Care Provider [phone] Angelique Russell APRN Attending Provider [phone] Keita DO, Sandra A Attending Provider Edgar Eden DO Attending Provider Rosibel VARGAS, Manjit Other Provider Samm Medina MD Attending Provider Debbie DO, Sandra A Referring Provider [phone] NO FAMILY, PHYSICIAN Primary Care Provider Unava ilKarl Meyers DPM Attending Provider OZ KINCAID Attending Unavailable BEMatt, OZ Snyder Attending Unavailable FRITZ, KARL H Attending Unavailable AMY, KARL H Attending Unavailable AMY KARL H Attending Unavailable OZ KINCAID Attending Unavailable OZ KINCAID Referring Unavailable OZ KINCAID Attending Unavailable OZ KINCAID Referring Unavailable AMY, KARL H Attending Unavailable BEOZ Gutierrez Attending Unavailable FRITZ, KARL H Attending Unavailable AMY, KARL H Attending Unavailable AMY, KARL H Attending Unavailable OZ KINCAID Attending Unavailable OZ KINCAID Attending Unavailable AMY, KARL H Attending Unavailable Shantel Norton APRN Primary Care Provider Shantel Norton APRN Attending Provider [phone] Keita, Sandra A Primary Care Unavailable Tray Nava Admitting Unavailabl Tray Rankin Attending Unavailabl e Keita, Sandra A Primary Care Unavailable Asaad, Imad Admitting Unavailable Asaad, Imad Attending Unavailable Asaad, Imad Attending Unavailable Keita, Sandra A Primary Care Unavailable Asaad, Imad Admitting Unavailable Deneen Frost Admitting Unavailable Deneen Frost Attending Unavailable Rl Villavicencio Attending Unavailable Keita, Sandra A Primary Care Unavailable Rl Villavicencio Admitting Unavailable Oz Kincaid Referring Unavailable Keita, Sandra A Primary Care Unavailable Nataliya Jane Admitting Unavail able Nataliya Jane Attending Unavail able Angelique Russell Consulting Unavailable TrabHan shieldsf Admitting Unavailable TrabjamaiHanf Attending Unavailable Keita, Sandra A Primary Care Unavailable Amy, Karl Admitting Unavailable Razia Fritzra Attending Unavailable Trabana maría, Hanf Admitting Unavailable Thuan Wise Attending Unavailable Sandra Keita Primary Care Unavailable Karl Fritz Admitting Unavailable Karl Fritz Attending Unavailable Sandra Keita Primary Care Unavailable Sandra Keita Attending Unavailable Sandra Keita Admitting Unavailable Lit Clark Consulting Unavailab Jori Carvalho Admitting Unavailable Sandra Keita Primary Care Unavailable Priscilla Lang Attending Unavailable Allergies Allergy Classification Reported Allergen(s) Allergy Type Date of Onset Reaction(s) Facility (20 sources) Sulfamethoxazole ; Translations: [sulfamethoxazol e] Drug Allergy 3 Unknown [facility] Repository (15 sources) Sulfonamides (Antibiotic); Translations: [SULFA (SULFONAMIDE ANTIBIOTICS)] Allergy to substance 9 GI intolerance, Unknown, Nausea/vomiting [facility] (20 sources) Sulfonamides (Antibiotic) Drug Allergy [...] Subcutaneous once weekly for 28 days Active amoxicillin 875 mg / clavulanate 125 mg oral tablet (19 sources) Penicillin-class Antibacterial Start: 12-15-2024 take 1 tablet by mouth twice daily Amoxicillin-Pot Clavulanate 875-125 mg tablet Active 1 TAB PO Twice daily December 15, 2024 12:00am Complies with drug therapy Start: 01-15-2024 End: 04-14-2024 Amoxicillin-Pot Clavulanate 875-125 mg tablet Discontinued TAB PO January 15, 2024 12:00am April 14, 2024 10:39am apixaban 5 mg oral tablet (20 sources) [...] e 150 mg extended release oral tablet (12 sources) Aminoketone Start: 09-16-2024 take 1 tablet by umer th once daily in the morning Start: 09-16-2024 take 1 tablet by umer th once daily in the morning Bupropion Hcl 150 mg tablet extended release 24 hr Active 0 .ROUTE .COMPLEX 90 September 16, 2024 10:37am TAKE 1 TABLET [...] take 1 tablet by mouth twice daily Continuous Blood Gluc Sensor (FreeStyle Brent 14 Day Sensor) [facility] [place] (20 sources) Start: 12-21-2022 Continuous Blood Gluc Sensor (FreeStyle Brent 14 Day Sensor) [facility] apply 1 SENSOR as directed every 14 days use with DEVICE to MONIT... (REFER TO PRESCRIPTION NOTES). 12/21/2022 Active docusate sodium 100 mg oral capsule (20 sources) Start: 02-14-2024 take 1 capsule by mouth once daily as needed for constipation Start: 02-09-2021 End: 06-12-2023 take 1 capsule [...] in the evening Orally bid PRN Active doxycycline hyclate 100 mg oral tablet (17 sources) Tetracycline-class Drug Start: 12-15-2024 take 1 tablet by mouth twice daily Doxycycline Hyclate 100 mg tablet Active 100 MG PO Twice daily December 15, 2024 12:00am Complies with drug therapy Start: 11-16-2024 End: 11-26-2024 take 1 tablet [...] take 1 tablet by mouth once daily [id number] 0.3 ml EPINEPHrine 1 mg/ml auto-injector (1 source) alpha-Adrenergic Agonist, beta-Adrenergic Agonist, Catecholamine Start: 12-16-19 25 Epinephrine 0.3 mg/0.3 mL auto-injector Active 0.3 ML SUBCUT every 5 to 15 minutes as needed for allergy to bees 2 December 15, 2024 12:00am do not exceed 2 doses per episode Complies with drug therapy Flash Glucose Sensor (Freestyle Brent 14 Day [...] days Start: 07-22-2023 Flash Glucose Sensor (Freestyle Bretn 14 Day Sensor) kit [facility], 2023 12:00am As directed Change every 14 days folic acid 1 mg oral tablet (20 sources) Start: 05-11-2024 take 1 tablet by mouth once da anne Start: 02-09-2021 End: 05-11-2024 take 1 tablet by mouth once daily Folic Acid 1 mg tablet Discontinued 1 MG PO Daily 90 90 October 16, 2023 7:36am May 11, 2024 8:38am FreeStyle Brent 14 Day Senso r - [...] prn Active furosemide 20 mg oral tablet (14 sources) Loop Diuretic Start: 05-07-2024 End: 05-07-2025 [...] by razo bcutaneous injection once daily Ashley Ortegaar 300 UNIT/ML 20 units once daily Subcutaneous as directed for 90 days (titrate up to 30 units/day) Dec, Active Insulin Lispro 100 unit/mL insulin pen (20 [...] TAB PO Daily August 25, 2024 12:00am magnesium oxide 400 [...] PO Twice daily December 03, 2023 1:06pm January 29, 2024 10:23am Start: 09-14-2023 End: 10-10-2024 take 1 tablet by mouth once daily Magnesium Oxide (Magox) 400 mg (241.3 mg magnesium) tablet Discontinued 400 MG PO Daily September 14, 2023 12:00am November 18, 2023 2:05pm memantine hydrochloride 10 mg oral tablet (20 sources) C-xndvne-E-aspartate Receptor Antagonist Start: 04-28-2024 End: 07-03-2024 memantine (Namenda) 10 MG tablet Indications: Cognitive [...] daily at mealtime Start: 02-09-2021 End: 08-26-2023 take 1 tablet by mouth twice daily Metformin 500 mg Tablet Discontinued 500 MG PO Twice daily February 09, 2021 12:00am August 26, 2023 10:13am Miscellaneous Medical Supply (20 sources) Start: 11-26-2023 [...] Orally Once a day Active Multivitamin tablet (16 sources) Start: 06-12-2023 take 1 tablet by mouth once da anne Start: 06-12-2023 take 1 tablet by umer th once daily Multivitamin tablet Active 1 TAB PO Daily June 12, 2023 9:10am Start: 06-12-2023 take 1 tablet by umer th once daily Multivitamin tablet Active 1 TAB PO Daily June 12, 2023 8:10am omeprazole 20 mg delayed release oral capsule (20 sources) Proton Pump Inhibitor Start: 12-14-2024 take 1 capsule by mouth once daily Start: 07-01-2023 End: 09-10-2024 take 1 capsule by mouth once daily Omeprazole 20 mg capsule,delayed release(DR/EC) Discontinued 0 .ROUTE .COMPLEX January 06, 2024 12:36pm September 10, 2024 12:44pm take 1 capsule by mouth once daily Start: 01-02-2023 End: 12-14-2024 take 1 capsule by mouth once daily Omeprazole 20 mg capsule,delayed release(DR/EC) Discontinued 40 MG PO 1 time daily September 10, 2024 12:44pm December 14, 2024 7:53am take 1 capsule by mouth once daily Start: 02-09-2021 End: 07-01-2023 take 1 tablet [...] 12/10/2022 Active pen needle, diabetic (Sure-Fine Pen Maiden) (20 sources) Start: 06-12-2023 pen needle, diabetic (Sure-Fine Pen Maiden) Active .Route June 12, 2023 1:00am Start: 06-12-2023 pen needle, di abetic (Sure-Fine Pen Maiden) Active .Route June 12, 2023 12:00am Start: 06-12-2023 pen needle, di abetic (Sure-Fine Pen Maiden) Active .ROUTE June 12, 2023 12:00am pregabalin 300 mg oral capsu le (20 sources) Start: 10-01-2024 take 2 capsules by m outh once daily at bedtime Start: 07-10-2024 End: [...] 2023 12:00am January 15, 2024 3:40pm Semaglutide (2 sources) Start: 04-28-2024 inject 2 mg by [...] SUBCUT every week April 28, 2024 12:00am sertraline 25 mg oral tablet (1 source) Serotonin Reuptake Inhibitor Start: 12-15-2024 take 1 tablet by mouth once daily Sertraline 25 mg tablet Active 25 MG PO Daily December 15, 2024 12:00am Complies with drug therapy simvastatin 20 mg oral tablet (20 sources) HMG-CoA Reductase Inhibitor Start: 04-30-2024 End: 07-24-2024 take 2 tablets by mouth once daily Start: 12-04-2022 take 1 tablet by umer th at bedtime simvastatin (Zocor) 40 MG tablet [...] Start: 11-14-2023 take 1 capsule by mo [facility] once daily Start: 02-09-2021 End: [...] 04, 2023 12:00am April 14, 2024 10:39am cefuroxime 500 [...] Twice daily 6 December 13, 2021 12:00am cephalexin 500 mg oral capsule (9 sources) Cephalosporin Antibacterial Start: 07-10-2024 End: 07-22-2024 [...] a day for 30 day(s) Apr, Not-Taking donepezil hydrochloride 10 mg oral tablet (20 sources) Start: 02-25-2024 End: 07-21-2024 take 2 tablets by mouth once daily Donepezil 10 mg tablet Discontinued 20 MG PO Daily April 28, 2024 1:00am July 03, 2024 1:05pm take 1 tablet by mouth twice hansel ly donepezil (Aricept) 10 mg tablet Take 1 tablet (10 mg) by mouth 2 times a day. Active flash glucose sensor (FreeSt yle Brent 14 Day Sensor) (20 sources) Start: [...] June 12, 2023 12:00am Handicap placards as directed (13 sources) Start: 11-28-2022 Handicap placa rds as directed as directed as directed as directed To 5 years after issue date Nov, Active 3 ml insulin lispro 100 unt/ml [...] 09, 2022 11:00pm Start: 02-09-2021 End: 08-20-2024 Insulin Lispro 100 unit/mL i nsulin pen Discontinued 0 SUBCUT Before meals and at bedtime June 12, 2023 9:05am December 23, 2023 4:14pm subcutaneously before meals and at bedtime; 1:50 corrective scale (expect up to 20 units/day) HumaLOG KwikPen 100 UNIT/ML 1:50 corrective scale Subcutaneous ac tid Not-Taking Insulin Lispro (Admelog Solostar U-100 Insulin) 100 [...] 09, 2022 11:00pm June 12, 2023 8:13am L. acidophilus/Bifid. animalis (Daily Probiotic) (2 sources) Start: 08-25-2024 End: 12-15-2024 take 1 tablet by mouth once daily L. acidophilus/Bifid. animalis (Daily Probiotic) Discontinued 1 TAB PO Daily August 25, 2024 12:00am December 15, 2024 1:58pm Start: 08-25-2024 L. acidophilus /Bifid. animalis (Daily Probiotic) Active PO August 25, 2024 12:00am lidocaine 0.05 mg/mg topical ointment (20 sources) [...] Miscellaneous Medical Supply misc Discontinued 0 .Route November 26, 2023 1:22pm November 26, 2023 1:25pm As directed Start: 2023 End: 11-26-2023 Miscellaneous Medical Supply misc Discontinued 0 .Route 1 2023 2:20pm November [...] Supply misc Discontinued 0 .Route 1 September 17, 2023 12:00am September 30, 2023 8:33am As directed Start: 09-17-2023 End: 09-30-2023 Miscellaneous Medical Supply misc Discontinued 0 .Route 1 September 16, 2023 11:00pm September 30, 2023 7:33am As directed Multivitamin Tablet (16 sources) Start: 02-09-2021 End: 06-12-2023 take 1 tablet by mouth twice daily Multivitamin Tablet Discontinued 1 TAB PO Twice daily February 09, 2021 12:00am June 12, 2023 9:13am Start: 02-09-2021 End: 06-12-2023 take 1 tablet by mouth twice daily Multivitamin Tablet Discontinued 1 TAB PO Twice daily February 08, 2021 11:00pm June 12, 2023 8:13am 24 hr nicotine 0.875 mg/hr transdermal system (13 sources) Cholinergic Nicotinic Agonist Start: 05-07-2024 End: 08-20-2024 apply 1 dose transdermal route every twenty-four hours Nicotine 21 mg/24 hr patch 24 hour Discontinued 1 PATCH TRANSDERML Daily May 07, 2024 1:00am August 20, 2024 10:11am nortriptyline 25 mg oral capsule (20 sources) Tricyclic Antidepressant Start: 02-25-2024 End: 01-17-2025 take 1 capsule by mouth once daily at bedtime Nortriptyline 25 mg capsule Discontinued 25 MG PO Daily at bedtime April 28, 2024 1:00am July 03, 2024 1:05pm Start: 06-18-2023 End: 11-18-2023 take 100 mg [...] 18, 2023 8:10pm take 1 capsule by [facility] every twenty-four hours Nortriptyline HCl 50 MG 1 capsules Orally Once a day Active pioglitazone 15 mg oral tablet (20 sources) [...] subcutaneously every week for 84 Active Semaglutide (16 sources) Start: 04-28-2024 End: 04-28-2024 inject 1 [...] 4:43pm Start: 08-09-2022 take 1 capsule by mo [...] 17, 2021 6:00am take 1 capsule by [facility] every twenty-four hours Temazepam 15 MG [...] abuse counseling] Onset: 03-27-2021 Resolved: 01-09-2022 Episodic Allergic reactions (2 sources) Allergy to honey bee venom; Translations: [Bee allergy status] 12-15-2024 Episodic Biliary tract disease (20 sources) Biliary [...] 01-28-2024 Chronic Coma; stupor; and brain damage (4 sources) Daytime somnolence; Translations: [Somnolence] 10-01-2024 Episodic Complications of surgical procedures or medical care (6 sources) Complication of ventilation therapy 10-01-2024 Episodic Congestive heart failure; nonhypertensive (6 sources) Congestive heart failure; Translations: [Heart failure, [...] insomnia; Translations: [Primary insomnia] Chronic Mood disorders (14 sources) Major depressive disorder; Translations: [Major depressive disorder, single episode, unspecified] 08-25-2024 Chronic Nonspecific chest pain (20 sources) Chest pain; Translations: [Chest pain, unspecified] 09-12-2023 Episodic Nutritional deficiencies (20 sources) Vitamin D deficiency; Translations: [Vitamin D deficiency, unspecified] Chronic Nutritional deficiencies (20 sources) Deficiency of other specified B group vitamins; Translations: [Cobalamin deficiency] Onset: 03-27-2021 Resolved: 01-09-2022 Episodic Open wounds of extremities (16 sources) Injury of foot; Translations: [Unspecified open wound, unspecified foot, initial encounter] 02-03-2024 Episodic Other acquired deformities (2 sources) Unspecified acquired deformity of right lower leg; Translations: [Unspecified deformity of ankle and foot, acquired] 10-26-2024 Episodic Other aftercare (20 sources) Long-term current use of insulin; Translations: [halfway (current) use of insulin] 06-12-2023 Episodic Other aftercare (12 sources) halfway (current) use of insulin; Translations: [Long-term (current) use of insulin] Onset: 03-27-2021 Resolved: 01-09-2022 Episodic Other aftercare (20 sources) Post-discharge follow-up; Translations: [Encounter for follow-up examination after completed treatment for conditions other than malignant neoplasm] 09-24-2023 Episodic Other aftercare (17 sources) Encounter for follow-up examination after completed treatment for conditions other than malignant neoplasm; Translations: [Other follow-up examination] 09-17-2023 Episodic Other circulatory disease (12 sources) Low blood pressure; Translations: [Hypotension, unspecified] 05-07-2024 Episodic Other circulatory disease (7 sources) Hypotension, unspecified; Translations: [Hypotension, unspecified] Onset: 09-25-2023 05-07-2024 Episodic Other connective tissue disease (19 sources) Other symptoms and signs involving the musculoskeletal system; Translations: [Other musculoskeletal symptoms referable to limbs] Onset: 10-06-2024 10-06-2024 Episodic Other connective tissue disease (4 sources) Pain in left lower limb; Translations: [Pain in left leg] 10-06-2024 Episodic Other connective tissue disease (4 sources) Pain in right lower limb; Translations: [Pain in right leg] 10-06-2024 Episodic Other connective tissue disease (1 source) Weakness of hand; Translations: [Other symptoms and signs involving the musculoskeletal system] 12-12-2024 Episodic Other gastrointestinal disorders (20 sources) Dysphagia; Translations: [Dysphagia, unspecified] 06-18-2023 Episodic Other gastrointestinal disorders (15 sources) Stricture of esophagus; Translations: [Personal history of other diseases of the digestive system] Episodic Other gastrointestinal disorders (12 sources) Incontinence of feces; Translations: [Full incontinence of feces] 05-07-2024 Episodic Other gastrointestinal disorders (5 sources) Full incontinence of feces; Translations: [Full incontinence of feces] 05-07-2024 Episodic Other hematologic conditions (18 sources) Secondary polycythemia; 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] 04-28-2024 [...] blood chemistry] 11-14-2023 Episodic Other skin disorders (6 sources) Lesion of skin of face; Translations: [...] 07-03-2021 Chronic Residual codes; unclassified (20 sources) Obstructive sleep apnea syndrome; Translations: [Obstructive sleep apnea (adult) (pediatric)] Onset: 10-29-2023 Resolved: 10-29-2023 10-29-2023 Chronic Residual codes; unclassified (1 source) Obstructive sleep apnea (adult) (pediatric); Translations: [Obstructive sleep apnea (adult)(pediatric)] 10-01-2024 Chronic Residual codes; unclassified (20 sources) Insomnia; Translations: [Insomnia, unspecified] Episodic Residual codes; unclassified (1 source) Asymptomatic menopausal state Episodic Residual codes; unclassified (12 sources) Sleep disorder; Translations: [Sleep disorder, unspecified] 05-07-2024 Episodic Residual codes; unclassified (5 sources) Sleep disorder, unspecified; Translations: [Sleep disturbance, unspecified] 05-07-2024 Episodic Residual codes; unclassified (2 sources) At increased risk of emergency hospital admission; Translations: [Other specified personal risk factors, not elsewhere classified] 11-23-2024 Episodic Spondylosis; intervertebral disc disorders; other back problems (7 sources) Lumbar spondylosis; Translations: [Spondylosis without myelopathy [...] Translations: [Transient cerebral ischemic attack, unspecified] Onset: 05-13-2024 04-28-2024 Chronic Unclassified (3 sources) Dermatochalasis of left upper eyelid / H02.834(ICD-10) Onset: 05-16-2017 Unclassified (1 source) Dermatochalasis of right upper eyelid / H02.831(ICD-10) Onset: 05-16-2017 Unclassified (1 source) Unspecified ptosis of bilateral eyelids / H02.403(ICD-10) Onset: 05-16-2017 Unclassified (1 source) Nicotine dependence, unspecified, uncomplicated / F17.200(ICD-10) Onset: 05-16-2017 Unclassified (1 source) halfway (current) use of aspirin / Z79.82(ICD-10) Onset: 05-16-2017 Unclassified (1 source) halfway (current) use of oral hypoglycemic drugs / Z79.84(ICD-10) Onset: 05-16-2017 Unclassified (2 sources) EKG Visit Onset: 12-02-2023 Unclassified (2 sources) Bilateral leg weakness 10-06-2024 Urinary tract infections (20 sources) Emphysematous cystitis; Translations: [Other cystitis without hematuria] 12-09-2021 Episodic Past or Other Problems Problem Classification Problem Date Documented Da te Episodic/Chronic Conditions associated with dizziness or vertigo [...] Asthenia; Translations: [Weakness] Onset: 04-28-2024 11-10-2023 Episodic Other aftercare (6 sources) Taking high risk medication; Translations: [Other care home (current) drug therapy] Onset: 11-13-2023 11-13-2023 Episodic Other aftercare (2 sources) Other care home (current) drug therapy; Translations: [Other care home (current) drug therapy] Onset: 11-13-2023 Episodic Other connective tissue disease (1 source) [...] foot] Onset: 01-06-2024 Episodic Other gastrointestinal disorders (5 sources) Dysphagia, unspecified; Translations: [Dysphagia, unspecified] Onset: 09-10-2024 Episodic Other hematologic conditions (15 sources) Secondary [...] 07-10-2021 Resolved: 07-10-2021 Episodic Residual codes; unclassified (1 source) Insomnia, unspecified Onset: 05-08-2021 Resolved: 05-08-2021 Episodic Skin and subcutaneous tissue infections (7 [...] Name Value Interpretation Reference Range Facility Aerobic culture with sensiti vityOrdered By: Karl Fritz on 11-16-2024 Bacteria identified Aer cx Nom (Unsp spec) Klebsiella oxytoca Abnormal [facility] Bacteria identified Aer cx Nom (Unsp spec) Staphylococcus aureus Abnormal [facility] Superficial Wound Cultureon 11-16-2024 Superficial Wound Culture [...] RESISTANT TO ALL B-LACTAM DRUGS. PERFORMED BY: [place] [address] PATHOLOGIST SWING GRINDER BENNIE HIGGINBOTHAM M.D. Normal [facility] Comment on above: Performed By: #### L IPID, BMP #### [address] XR Foot - right 3 [facility] [...] sesamoids and metatarsal head right 1st metatarsal. Formerly [facility], [facility] Radiology Study observation (narrative) [facility] Capillary blood glucose steve urement by glucometer (mass/volume)Ordered By: Manjit Gleason on 09-10-2024 Glucose [Mass/Vol] 234 mg/dL Normal [facility] Comment on above: Random Glucose Refer ence Range is dependent on time and content of last meal. Glucose of more than 200 mg/dL in a nonstressed, ambulatory subject supports the diagnosis of Diabetes Mellitus. Result Comment: [facility] Glucose Reference Range is dependent on time and content of last meal. Glucose of more than 200 mg/dL in a nonstressed, ambulatory subject supports the diagnosis of Diabetes Mellitus. Performed By: #### C MP, MG, PHOS, CBC #### [facility] [address] Glucose Glucometer (dC) [M ass/Vol]Ordered By: Manjit Gleason on 09-10-2024 Glucose [Mass/Vol] Capillary blood gluc ose measurement by glucometer (mass/volume) [facility] Comment on above: Random Glucose Refer ence Range is dependent on time and content of last meal. Glucose of more than 200 mg/dL in a nonstressed, ambulatory subject supports the diagnosis of Diabetes Mellitus. Glucose Poct Glucometerson 0 09-10-2024 Commemt1 Glu2: Cleaned Meter Normal [facility] Comment on above: Result Comment: PERF ORMED BY: [address] [place] [address] PATHOLOGIST SWING GRINDER LE MACE M.D. Performed By: #### C MP, MG, PHOS, CBC #### [facility] [address] No Panel InformationOrdered By: Manjit Gleason on 09-10-2024 Miscellaneous Pathology Test See comment [facility] Comment on above: See report. Scanned copy available in EMR. Bedside Glucose Comment Glu2: cleaned meter [facility] Pathology Request for Lab Co rpon 09-10-2024 Pathology Request for Lab Rory Normal [facility] Comment on above: Order Comment: FASTI NG N Result Comment: See report. Scanned copy available in EMR. PERFORMED BY: [address] [place] [address] PATHOLOGIST SWING GRINDER LE MACE M.D. Performed By: #### L IPID, BMP #### [facility] [address] HbA1c HPLC (Bld) [Mass fract ion]on 08-20-2024 HbA1c (Bld) [Mass fraction] Hemoglobin A1c/Hemoglobin.total in Blood by HPLC [facility] HbA1c (Bld) [Mass fraction] 8.8 % [facility] No Panel Informationon 08-20 Bedside Glucose 269 [facility] US ankle/arm indiceson 07-23 US ankle/arm indices [facility] [address] [place] [address] Ultrasound Report Signed Patient: Taye Gay MR#: [id number] 19 : 1955 Acct:[id number] Age/Sex: 68 / F ADM Date: 07/22/24 Loc: [facility] Room: Type: [facility] Attending Dr: Tray Nava MD Ordering [...] Eugenio Rob M.D.07/23/2024 9:21 AM Dictation Location: [place] [address] Tech: Carmelita Horowitz Transcribed By: AMY 07/23/24920 Dictated By: Eugenio Rob MD 07/23/24919 Signed By: 07/23/24920 Normal [facility] Urine Cultureon 07-06-2024 Bacteria identified Cx Nom (U) ORGANISM: Klebsiella oxytoca (O:KLEOXY) Griffin Count >100,000 Aerobic FAMILIA Charge (NMIC56) - [...] RESISTANT TO ALL B-LACTAM DRUGS. PERFORMED BY: [facility] [address] [place] [address] PATHOLOGIST SWING GRINDER LE MACE M.D. Normal [facility] Comment on above: Performed By: #### T SH3 wRFLX, LIPID #### [facility] [address] Urine cultureOrdered By: Columba Frost on 07-06-2024 Bacteria identified Cx Nom (U) Abnormal [facility] Alanine aminotransferase [En zymatic activity/volume] in Serum or PlasmaOrdered By: Angelique Russell on 06-26-2024 ALT [Catalytic activity/Vol] Alanine aminotransferase [Enzymatic activity/volume] in Serum or Plasma 7-52 [facility] Albumin [Mass/volume] in Ser um or Plasma by Bromocresol green (BCG) dye binding methoOrdered By: Angelique Russell on 06-26-2024 Albumin BCG dye [Mass/Vol] Albumin [Mass/volume] in Serum or Plasma by Bromocresol green (BCG) dye binding metho 3.5-5.7 [facility] Alkaline phosphatase [Enzyma tic activity/volume] in Serum or PlasmaOrdered By: Angelique Russell on 06-26-2024 ALP [Catalytic activity/Vol] Alkaline phosphatase [Enzymatic activity/volume] in Serum or Plasma 34-104 [facility] Aspartate aminotransferase [ Enzymatic activity/volume] in Serum or PlasmaOrdered By: Angelique Russell on 06-26-2024 AST [Catalytic activity/Vol] Aspartate aminotransferase [Enzymatic activity/volume] in Serum or Plasma 13-39 [facility] B-Type Natriuretic Peptideon 06-26-2024 Natriuretic peptide B (Bld) [Mass/Vol] 54.0 pg/mL Normal 5-100 [facility] Comment on above: Result Comment: PERF ORMED BY: [place] [address] PATHOLOGIST SWING GRINDER LE MACE M.D. Performed By: #### T SH3 wRFLX, LIPID #### [address] BCR-ABL Neogenomicon 025 BCR-ABL Neogenomic Normal [facility] Comment on above: Result Comment: See report. Scanned copy available in EMR. PERFORMED BY: [place] [address] PATHOLOGIST SWING GRINDER LE MACE M.D. Performed By: #### C MP, MG, PHOS, CBC #### [facility] [address] [place] [id number] [facility] Basophils Auto (Bld) [#/Vol] Ordered By: Nataliya Jane on 06-26-2024 Basophils (Bld) [#/Vol] Automated basophil count 0.0-0.2 [facility] Basophils/100 WBC Auto (Bld) Ordered By: Nataliya Jane on 06-26-2024 Basophils/100 WBC (Bld) Automated basophil % . [facility] Bilirubin.total [Mass/volume ] in Serum or PlasmaOrdered By: Angelique Russell on 06-26-2024 Bilirubin [Mass/Vol] Bilirubin.total [Mass/volume] in Serum or Plasma 0.3-1.0 [facility] CBC W Auto Differential pane l (Bld)on 06-26-2024 Basophils (Bld) [#/Vol] 0 10*3/uL 0.0 - 0.2 10*3/uL [facility] Basophils/100 WBC Manual cnt (Syn fld) 0.5 % . [facility] Eosinophils (Bld) [#/Vol] 0.2 10*3/uL 0.0 - 0.45 10*3/uL [facility] Eosinophils/100 WBC Manual cnt (Syn fld) 2.7 % . [facility] Erythrocyte distribution width (RBC) [Ratio] 14.6 % 11.9 - 15.3 % [facility] Hematocrit (Bld) [Volume fraction] 46.4 % 34.0 - 46.4 % [facility] Hemoglobin (Bld) [Mass/Vol] 15.8 g/dL High 11.8 - 15.4 g/dL [facility] Interpretation and review of laboratory results Abnormal [facility] Lymphocytes (Bld) [#/Vol] 1.6 10*3/uL 1.00 - 4.8 10*3/uL [facility] Lymphocytes/100 WBC Manual cnt (Syn fld) 23.1 % . [facility] MCH (RBC) [Entitic mass] 32.6 pg 24.7 - 34.3 pg [facility] MCHC (RBC) [Mass/Vol] 34.2 g/dL 32.0 - 35.0 g/dL [facility] MCV (RBC) [Entitic vol] 95.3 fL 80 - 100 fL [facility] Monocytes (Bld) [#/Vol] 0.5 10*3/uL 0.0 - 0.8 10*3/uL [facility] Monocytes+Macrophages/1 00 WBC Manual cnt (Syn fld) 6.6 % . [facility] Neutrophils (Bld) [#/Vol] 4.6 10*3/uL 1.8 - 7.7 10*3/uL [facility] Neutrophils/100 WBC Manual cnt (Syn fld) 67.1 % . [facility] NRBC 0.1 /100{WBC} 0 - 0.5 /100{WBC} [facility] Platelet mean volume (Bld) [Entitic vol] 10.4 fL 6.3 - 10.7 [facility]L [facility] Platelets (Bld) [#/Vol] 120 10*3/uL Low 150 - 450 10*3/uL [facility] RBC LM.HPF (Urine sed) [#/Area] 4.86 10*6/uL 3.60 - 5.00 10*6/uL [facility] WBC (Bld) [#/Vol] 6.9 10*3/uL 3.8 - 11.6 10*3/uL [facility] WBC LM.HPF (Urine sed) [#/Area] 6.9 10*3/uL 3.8 - 11.6 10*3/uL [facility] Calcium [Mass/volume] in Ser um or PlasmaOrdered By: Angelique Russell on 06-26-2024 Calcium [Mass/Vol] Calcium [Mass/volume ] in Serum or Plasma 8.6-10.3 [facility] Carbon dioxide, total [Moles /volume] in Serum or PlasmaOrdered By: Angelique Russell on 06-26-2024 CO2 [Moles/Vol] Carbon dioxide, tota l [Moles/volume] in Serum or Plasma 21.0-31.0 [facility] Chloride [Moles/volume] in S elliot or PlasmaOrdered By: Angelique Russell on 06-26-2024 Chloride [Moles/Vol] Chloride [Moles/vol ume] in Serum or Plasma 98-107 [facility] Cholesterol [Mass/volume] in Serum or PlasmaOrdered By: Angelique Russell on 06-26-2024 Cholesterol [Mass/Vol] Cholesterol [Mass/volume] in Serum or Plasma Low 140-200 [facility] Comment on above: Chol less than 200 m g/dl low riskChol 201-239 mg/dl borderline riskChol 240 mg/dl and greater high risk Cholesterol in HDL [Mass/vol ume] in Serum or PlasmaOrdered By: Angelique Russell on 06-26-2024 Cholesterol in HDL [Mass/Vol] Serum or plasma high density lipoprotein (HDL) cholesterol measurement 23 [facility] Comment on above: HDL CHOL ATP-III CLA SSIFICATION Cardiovascular RiskHDL > or equal to 60 mg/dL LOWHDL < 40 mg/dL HIGH Cholesterol in LDL Calc [Mas s/Vol]Ordered By: Angelique Russell on 06-26-2024 Cholesterol in LDL [Mass/Vol] Cholesterol in LDL [Mass/volume] in Serum or Plasma by calculation 0-100 [facility] Comment on above: LDL ATP III CLASSIFI CATIONLDL less than 100 mg/dL OptimalLDL 100-129 mg/dL Near or above optimalLDL 130-159 mg/dL Borderline highLDL 160-189 mg/dL HighLDL greater than 189 mg/dL Very high Cholesterol in VLDL Calc [Ma ss/Vol]Ordered By: Angelique Russell on 06-26-2024 Cholesterol in VLDL [Mass/Vol] Cholesterol in VLDL [Mass/volume] in Serum or Plasma by calculation [facility] Complete Blood Count Auto Di ffon 06-26-2024 Basophils (Bld) [#/Vol] 0.0 10*3/uL Normal 0.0-0.2 [facility] Comment on above: Result Comment: PERF ORMED BY: [place] [address] PATHOLOGIST SWING GRINDER LE MACE M.D. Performed By: #### L IPID, BMP #### [facility] [address] [place] [address] [place] Basophils/100 WBC (Bld) 0.5 % Normal . [facility] Comment on above: Performed By: #### L IPID, BMP #### [facility] [address] [place] [address] [place] Eosinophils (Bld) [#/Vol] 0.2 10*3/uL Normal 0.0-0.45 [facility] Comment on above: Performed By: #### L IPID, BMP #### [address] Eosinophils/100 WBC (Bld) 2.7 % Normal . [facility] Comment on above: Performed By: #### L IPID, BMP #### [address] Erythrocyte distribution width (RBC) [Ratio] 14.6 % Normal 11.9-15.3 [facility] Comment on above: Performed By: #### L IPID, BMP #### [address] Hematocrit (Bld) [Volume fraction] 46.4 % Normal 34.0-46.4 [facility] Comment on above: Performed By: #### L IPID, BMP #### [address] Hemoglobin (Bld) [Mass/Vol] 15.8 g/dL High 11.8-15.4 [facility] Comment on above: Performed By: #### L IPID, BMP #### [address] Lymphocytes (Bld) [#/Vol] 1.6 10*3/uL Normal 1.00-4.8 [facility] Comment on above: Performed By: #### L IPID, BMP #### [address] Lymphocytes/100 WBC (Bld) 23.1 % Normal . [facility] Comment on above: Performed By: #### L IPID, BMP #### [address] MCH (RBC) [Entitic mass] 32.6 pg Normal 24.7-34.3 [facility] Comment on above: Performed By: #### L IPID, BMP #### [address] MCV (RBC) [Entitic vol] 95.3 fL Normal 80-100 [facility] Comment on above: Performed By: #### L IPID, BMP #### [address] Mean Corpuscular HGB Conc 34.2 g/dL Normal 32.0-35.0 [facility] Comment on above: Performed By: #### L IPID, BMP #### [address] Monocytes (Bld) [#/Vol] 0.5 10*3/uL Normal 0.0-0.8 [facility] Comment on above: Performed By: #### L IPID, BMP #### [address] Monocytes/100 WBC (Bld) 6.6 % Normal . [facility] Comment on above: Performed By: #### L IPID, BMP #### [address] Neutrophils (Bld) [#/Vol] 4.6 10*3/uL Normal 1.8-7.7 [facility] Comment on above: Performed By: #### L IPID, BMP #### [address] Neutrophils/100 WBC (Bld) 67.1 % Normal . [facility] Comment on above: Performed By: #### L IPID, BMP #### [address] NRBC% 0.1 /100{WBC} Normal 0-0.5 [facility] Comment on above: Performed By: #### L IPID, BMP #### [address] Platelet mean volume (Bld) [Entitic vol] 10.4 fL Normal 6.3-10.7 [facility] Comment on above: Performed By: #### L IPID, BMP #### [place] [address] [place] Platelets (Bld) [#/Vol] 120 10*3/uL Low 150-450 [facility] Comment on above: Performed By: #### L IPID, BMP #### [address] RBC (Bld) [#/Vol] 4.86 10*6/uL Normal 3.60-5.00 [facility] Comment on above: Performed By: #### L IPID, BMP #### [address] WBC (Bld) [#/Vol] 6.9 10*3/uL Normal 3.8-11.6 [facility] Comment on above: Performed By: #### L IPID, BMP #### [address] Comprehensive Metabolic Pane juan 06-26-2024 Albumin [Mass/Vol] 3.8 g/dL Normal 3.5-5.7 [facility] Comment on above: Performed By: #### T SH3 wRFLX, LIPID #### [address] Albumin/Globulin [Mass ratio] 1.5 {ratio} Normal [facility] Comment on above: Performed By: #### T SH3 wRFLX, LIPID #### [address] ALP [Catalytic activity/Vol] 92 U/L Normal 34-104 [facility] Comment on above: Result Comment: PERF ORMED BY: [place] [address] PATHOLOGIST SWING GRINDER LE MACE M.D. Performed By: #### T SH3 wRFLX, LIPID #### [address] ALT [Catalytic activity/Vol] 23 U/L Normal 7-52 [facility] Comment on above: Performed By: #### T SH3 wRFLX, LIPID #### [address] Anion gap [Moles/Vol] 12.2 mmol/L Normal 6.0-15.0 [facility] Comment on above: Performed By: #### T SH3 wRFLX, LIPID #### [facility] [address] AST [Catalytic activity/Vol] 36 U/L Normal 13-39 [facility] Comment on above: Performed By: #### T SH3 wRFLX, LIPID #### [facility] [address] Bilirubin [Mass/Vol] 0.4 mg/dL Normal 0.3-1.0 [facility] Comment on above: Performed By: #### T SH3 wRFLX, LIPID #### [address] Calcium [Mass/Vol] 9.4 mg/dL Normal 8.6-10.3 [facility] Comment on above: Performed By: #### T SH3 wRFLX, LIPID #### [address] Chloride [Moles/Vol] 103 mmol/L Normal 98-107 [facility] Comment on above: Performed By: #### T SH3 wRFLX, LIPID #### [address] CO2 [Moles/Vol] 29.0 mmol/L Normal 21.0-31.0 [facility] Comment on above: Performed By: #### T SH3 wRFLX, LIPID #### [place] [address] [place] Creatinine [Mass/Vol] 0.93 mg/dL Normal 0.60-1.20 [facility] Comment on above: Performed By: #### T SH3 wRFLX, LIPID #### [place] [address] [place] GFR/1.73 sq M.predicted MDRD (S/P/Bld) [Vol rate/Area] mL/min/{1.73_m2} Normal [facility] Comment on above: Performed By: #### T SH3 wRFLX, LIPID #### [facility] [address] Globulin (S) [Mass/Vol] 2.6 g/dL Normal [facility] Comment on above: Performed By: #### T SH3 wRFLX, LIPID #### [address] Glucose [Mass/Vol] 256 mg/dL High 70-100 [facility] Comment on above: Result Comment: [facility] Glucose Reference Range is dependent on time and content of last meal. Glucose of more than 200 mg/dL in a nonstressed, ambulatory subject supports the diagnosis of Diabetes Mellitus. ADA recommended reference range Performed By: #### T SH3 wRFLX, LIPID #### [address] Potassium [Moles/Vol] 4.2 mmol/L Normal 3.5-5.1 [facility] Comment on above: Performed By: #### T SH3 wRFLX, LIPID #### [address] Protein [Mass/Vol] 6.4 g/dL Normal 6.4-8.9 [facility] Comment on above: Performed By: #### T SH3 wRFLX, LIPID #### [address] Sodium [Moles/Vol] 140 mmol/L Normal 136-145 [facility] Comment on above: Performed By: #### T SH3 wRFLX, LIPID #### [place] [address] [place] Urea nitrogen [Mass/Vol] 9 mg/dL Normal 7-25 [facility] Comment on above: Performed By: #### T SH3 wRFLX, LIPID #### [place] [address] [place] Creatinine [Mass/volume] in Serum or PlasmaOrdered By: Angelique Russell on 06-26-2024 Creatinine [Mass/Vol] Creatinine [Mass/v olume] in Serum or Plasma 0.60-1.20 [facility] Creatinine [Mass/volume] in UrineOrdered By: Angelique Russell on 06-26-2024 Creatinine (U) [Mass/Vol] Creatinine [Mass/volume] in Urine [facility] Comment on above: No reference range e stablished ECG 12 Leadon 06-26-2024 Normal sinus rhythm [facility] Work Phone: Eosinophils Auto (Bld) [#/Vo l]Ordered By: Nataliya Jane on 06-26-2024 Eosinophils (Bld) [#/Vol] Automated eosinophil count 0.0-0.45 [facility] Eosinophils/100 WBC Auto (Bl d)Ordered By: Nataliya Jane on 06-26-2024 Eosinophils/100 WBC (Bld) Automated eosinophil % . [facility] Erythrocyte distribution wid th Auto (RBC) [Ratio]Ordered By: Nataliya Jane on 06-26-2024 Erythrocyte distribution width (RBC) [Ratio] Erythrocyte distribution width [Ratio] by Automated count 11.9-15.3 [facility] Flowcytometry Neogenomicon 0 06-26-2024 Flowcytometry Neogenomic Normal [facility] Comment on above: Result Comment: See report. Scanned copy available in EMR. Performed By: #### C MP, MG, PHOS, CBC #### [address] Globulin Calc (S) [Mass/Vol] Ordered By: Angelique Russell on 06-26-2024 Globulin (S) [Mass/Vol] Serum globulin measurement by calculation (mass/volume) [facility] Glucose [Mass/volume] in Ser um or PlasmaOrdered By: Angelique Russell on 06-26-2024 Glucose [Mass/Vol] Glucose [Mass/volume ] in Serum or Plasma High 70-100 [facility] Comment on above: ADA recommended refe rence rangeRandom Glucose Reference Range is dependent on time and content of last meal. Glucose of more than 200 mg/dL in a nonstressed, ambulatory subject supports the diagnosis of Diabetes Mellitus. Hematocrit Auto (Bld) [Volum e fraction]Ordered By: Nataliya Jane on 06-26-2024 Hematocrit (Bld) [Volume fraction] Hematocrit [Volume Fraction] of Blood by Automated count 34.0-46.4 [facility] Hemoglobin [Mass/volume] in BloodOrdered By: Nataliya Lucinda on 06-26-2024 Hemoglobin (Bld) [Mass/Vol] Hemoglobin [Mass/volume] in Blood High 11.8-15.4 [facility] FERDINAND 2 [employer]ogenom[employer] FERDINAND 2 Neogenomic Normal [facility] Comment on above: Result Comment: See report. Scanned copy available in EMR. Performed By: #### C MP, MG, PHOS, CBC #### [facility] [address] [place] [address] [place] Leukocytes [#/volume] correc deepika for nucleated erythrocytes in Blood by Automated counOrdered By: Nataliya Lucinda on 06-26-2024 WBC corrected for nucl RBC Auto (Bld) [#/Vol] Leukocytes [#/volume] corrected for nucleated erythrocytes in Blood by Automated coun 3.8-11.6 [facility] Lipid Panelon 06-26-2024 Cholesterol [Mass/Vol] 93 mg/dL Low 140-200 [facility] Comment on above: Result Comment: Chol less than 200 mg/dl low risk Chol 201-239 mg/dl borderline risk Chol 240 mg/dl and greater high risk Performed By: #### T SH3 wRFLX, LIPID #### [facility] [address] [place] [address] [place] Cholesterol in HDL [Mass/Vol] 27 mg/dL Normal 23-92 [facility] Comment on above: Result Comment: HDL CHOL ATP-III CLASSIFICATION Cardiovascular Risk HDL > or equal to 60 mg/dL LOW HDL < 40 mg/dL HIGH Performed By: #### T SH3 wRFLX, LIPID #### [facility] [address] [place] [address] [place] Cholesterol.total/Monica sterol in HDL [Mass ratio] 3.4 {ratio} Normal <5.0 [facility] Comment on above: Performed By: #### T SH3 wRFLX, LIPID #### [facility] [address] [place] [address] [place] LDL Cholesterol,Calculated 34 mg/dL Normal 0-100 [facility] Comment on above: Result Comment: LDL ATP III CLASSIFICATION LDL less than 100 mg/dL Optimal LDL 100-129 mg/dL Near or above optimal LDL 130-159 mg/dL Borderline high LDL 160-189 mg/dL High LDL greater than 189 mg/dL Very high Performed By: #### T SH3 wRFLX, LIPID #### [facility] [address] Triglyceride w/Reflex 162 mg/dL High 0-149 [facility] Comment on above: Result Comment: TRIG ATP III CLASSIFICATION TRIG less than 150 mg/dL Normal TRIG 150-199 mg/dL Borderline high TRIG 200-500 mg/dL High TRIG greater than 500 mg/dL Very high Standard traceable to the Center for Disease Conrtrol and Prevention (CDC) test method. Performed By: #### T SH3 wRFLX, LIPID #### [facility] [address] VLDL CHOLESTEROL 32 mg/dL Normal [facility] Comment on above: Performed By: #### T SH3 wRFLX, LIPID #### [facility] [address] Lymphocytes Auto (Bld) [#/Vo l]Ordered By: Nataliya Jane on 06-26-2024 Lymphocytes (Bld) [#/Vol] Lymphocytes [#/volume] in Blood by Automated count 1.00-4.8 [facility] Lymphocytes/100 WBC Auto (Bl d)Ordered By: Nataliya Jane on 06-26-2024 Lymphocytes/100 WBC (Bld) Lymphocytes/100 leukocytes in Blood by Automated count . [facility] MCH Auto (RBC) [Entitic mass ]Ordered By: Nataliya Jane on 06-26-2024 MCH (RBC) [Entitic mass] MCH [Entitic mass] by Automated count 24.7-34.3 [facility] MCHC Auto (RBC) [Mass/Vol]Or dered By: Nataliya Jane on 06-26-2024 MCHC (RBC) [Mass/Vol] MCHC [Mass/volume] by Automated count 32.0-35.0 [facility] MCV Auto (RBC) [Entitic vol] Ordered By: Nataliya Jane on 06-26-2024 MCV (RBC) [Entitic vol] MCV [Entitic vol ume] by Automated count 80-100 [facility] MicroAlb Creat Ratio,Uon Albumin DL <= 20 mg/L (U) [Mass/Vol] mg/dL Normal 0.0-1.8 [facility] Comment on above: Performed By: #### C MP, MG, PHOS, CBC #### [facility] [address] Creatinine, Urine (Random) 65.00 mg/dL Normal [facility] Comment on above: Result Comment: No r eference range established Performed By: #### C MP, MG, PHOS, CBC #### [address] [address] Microalbumin/Creatinine Ratio Not performed Normal 0.0-30.0 [facility] Comment on above: Result Comment: PERF ORMED BY: [place] [address] PATHOLOGIST SWING GRINDER LE MACE M.D. Performed By: #### C MP, MG, PHOS, CBC #### [address] Microalbumin [Mass/volume] i n UrineOrdered By: Angelique Russell on 06-26-2024 Albumin DL <= 20 mg/L (U) [Mass/Vol] Microalbumin [Mass/volume] in Urine 0.0-1.8 [facility] Monocytes Auto (Bld) [#/Vol] Ordered By: Nataliya Jane on 06-26-2024 Monocytes (Bld) [#/Vol] Automated blood monocyte count 0.0-0.8 [facility] Monocytes/100 WBC Auto (Bld) Ordered By: Nataliya Jane on 06-26-2024 Monocytes/100 WBC (Bld) Automated monocyte % . [facility] Natriuretic peptide B [Mass/ Vol]Ordered By: Thuan Wise on 06-26-2024 Natriuretic peptide B (Bld) [Mass/Vol] BNP ser/plas 5-100 [facility] Neutrophils Auto (Bld) [#/Vo l]Ordered By: Nataliya Jane on 06-26-2024 Neutrophils (Bld) [#/Vol] Neutrophils [#/volume] in Blood by Automated count 1.8-7.7 [facility] Neutrophils/100 WBC Auto (Bl d)Ordered By: Nataliya Jane on 06-26-2024 Neutrophils/100 WBC (Bld) Automated neutrophil % . [facility] No Panel InformationOrdered By: Angelique Russell on 06-26-2024 Estimated GFR (CKD-EPI) > 60.0 mL/Min [facility] Creatinine Clearance (Chem N/A [facility] No Panel InformationOrdered By: Nataliya Jane on 06-26-2024 BCR/abl See comment [facility] Comment on above: See report. Scanned copy available in EMR. [id number] See comment [facility] Comment on above: See report. Scanned copy available in EMR. Nucleated erythrocytes [Pres ence] in Blood by Automated countOrdered By: Nataliya Jane on 06-26-2024 Nucleated RBC Auto Ql (Bld) Nucleated erythrocytes [Presence] in Blood by Automated count 0-0.5 [facility] Platelet mean volume Auto (B ld) [Entitic vol]Ordered By: Nataliya Jane on 06-26-2024 Platelet mean volume (Bld) [Entitic vol] Platelet mean volume [Entitic volume] in Blood by Automated count 6.3-10.7 [facility] Platelets Auto (Bld) [#/Vol] Ordered By: Nataliya Jane on 06-26-2024 Platelets (Bld) [#/Vol] Platelets [#/vol ume] in Blood by Automated count Low 150-450 [facility] Potassium [Moles/volume] in Serum or PlasmaOrdered By: Angelique Russell on 06-26-2024 Potassium [Moles/Vol] Potassium [Moles/v olume] in Serum or Plasma 3.5-5.1 [facility] Protein [Mass/volume] in Ser um or PlasmaOrdered By: Angelique Russell on 06-26-2024 Protein [Mass/Vol] Protein [Mass/volume ] in Serum or Plasma 6.4-8.9 [facility] RBC Auto (Bld) [#/Vol]Ordere d By: Nataliya Jane on 06-26-2024 RBC (Bld) [#/Vol] Erythrocytes [#/volu me] in Blood by Automated count 3.60-5.00 [facility] Serum or plasma albumin/glob ulin mass ratioOrdered By: Angelique Russell on 06-26-2024 Albumin/Globulin [Mass ratio] Serum or plasma albumin/globulin mass ratio [facility] Serum or plasma anion gap de terminationOrdered By: Angelique Russell on 06-26-2024 Anion gap [Moles/Vol] Serum or plasma an ion gap determination 6.0-15.0 [facility] Serum or plasma total choles terol/high density lipoprotein (HDL) cholesterol mass ratOrdered By: Angelique Russell on 06-26-2024 Cholesterol.total/Monica sterol in HDL [Mass ratio] Serum or plasma total cholesterol/high density lipoprotein (HDL) cholesterol mass rat <5.0 [facility] Sodium [Moles/volume] in Ser um or PlasmaOrdered By: Angelique Russell on 06-26-2024 Sodium [Moles/Vol] Sodium [Moles/volume ] in Serum or Plasma 136-145 [facility] Thyroid Stim Hormone w/Rflxo n 06-26-2024 Thyroid Stim Hormone w/Rflx 1.45 u[iU]/mL Normal 0.45-5.33 [facility] Comment on above: Result Comment: PERF ORMED BY: [facility] [address] [place] [address] PATHOLOGIST SWING GRINDER LE MACE M.D. Performed By: #### T SH3 wRFLX, LIPID #### [place] [address] [place] Thyrotropin [Units/volume] i n Serum or PlasmaOrdered By: Angelique Russell on 06-26-2024 TSH Qn Thyrotropin [Units/volume] in Serum or Plasma 0.45-5.33 [facility] Triglyceride [Mass/volume] i n Serum or PlasmaOrdered By: Angelique Russell on 06-26-2024 Triglyceride [Mass/Vol] Triglyceride [Mass/volume] in Serum or Plasma High 0-149 [facility] Comment on above: TRIG ATP III CLASSIF ICATIONTRIG less than 150 mg/dL NormalTRIG 150-199 mg/dL Borderline highTRIG 200-500 mg/dL High TRIG greater than 500 mg/dL Very highStandard traceable to the Center for Disease Conrtrol and Prevention (CDC) test method. Urea nitrogen [Mass/volume] in Serum or PlasmaOrdered By: Angelique Russell on 06-26-2024 Urea nitrogen [Mass/Vol] Urea nitrogen [Mass/volume] in Serum or Plasma 11-20 [facility] Urine microalbumin/creatinin e mass ratioOrdered By: Angelique Russell on 06-26-2024 Albumin/Creatinine DL <= 20 mg/L (U) [Mass ratio] Urine microalbumin/creatinine mass ratio [facility] Comment on above: Test not performed WBC Auto (Bld) [#/Vol]Ordere d By: Nataliya Jane on 06-26-2024 WBC (Bld) [#/Vol] Leukocytes [#/volume ] in Blood by Automated count 3.8-11.6 [facility] MR head/brain wo/w conon MR head/brain wo/w con [facility] [place] [place] [address] MRI Report Signed Patient: Taye Gay MR#: [id number] : 1955 Acct:[id number] Age/Sex: 68 / F ADM Date: 05/25/24 Loc: Room: Type: [facility] Attending Dr: Sandra Keita DO Copies [...] None MIDBRAIN: The midbrain structures are unremarkable. JANELL: Unremarkable MEDULLA: Unremarkable INTERNAL AUDITORY CANALS: Unremarkable SINUSES: Unremarkable ORBITS: Grossly unremarkable MASTOIDS: Unremarkable ENHANCEMENT: No contrast enhancement given MR/MR head/brain wo/w con IMPRESSION: No acute intracranial process. Impression dictated by: Eugenio Lazo M.D.05/25/2024 7:59 PM Dictation Location: [place] [address] Transcribed By: PWS 05/25/241958 Dictated By: Eugenio Lazo DO 05/25/241953 Signed By: 05/25/241958 Normal [facility] Magnetic resonance imaging r eportOrdered By: Eugenio Lazo on 05-25-2024 Study report [facility] [place] [address] MRI Report Signed Patient: Taye Gay MR#: [id number] : 1955 Acct:[id number] Age/Sex: 68 / F ADM Date: 5 Loc: MR Room: Type: [facility] Attending Dr: Sandra Keita DO Copies [...] None MIDBRAIN: The midbrain structures are unremarkable. JANELL: Unremarkable MEDULLA: Unremarkable INTERNAL AUDITORY CANALS: Unremarkable SINUSES: Unremarkable ORBITS: Grossly unremarkable MASTOIDS: Unremarkable ENHANCEMENT: No contrast enhancement given MR/MR head/brain wo/w con IMPRESSION: No acute intracranial process. Impression dictated by: Eugenio Lazo M.D.05/25/2024 7:59 PM Dictation Location: [place] [address] Transcribed By: AMY 05/25/241958 Dictated By: Euegnio Lazo DO 05/25/241953 Signed By: 05/25/241958 [facility] Alanine aminotransferase [En zymatic activity/volume] in Serum or PlasmaOrdered By: Priscilla Lang on 04-30-2024 ALT [Catalytic activity/Vol] Alanine aminotransferase [Enzymatic activity/volume] in Serum or Plasma 7-52 [facility] Albumin [Mass/volume] in Ser um or Plasma by Bromocresol green (BCG) dye binding methoOrdered By: Priscilla Lang on 04-30-2024 Albumin BCG dye [Mass/Vol] Albumin [Mass/volume] in Serum or Plasma by Bromocresol green (BCG) dye binding metho 3.5-5.7 [facility] Alkaline phosphatase [Enzyma tic activity/volume] in Serum or PlasmaOrdered By: Priscilla Lang on 04-30-2024 ALP [Catalytic activity/Vol] Alkaline phosphatase [Enzymatic activity/volume] in Serum or Plasma 34-104 [facility] Aspartate aminotransferase [ Enzymatic activity/volume] in Serum or PlasmaOrdered By: rPiscilla Lang on 04-30-2024 AST [Catalytic activity/Vol] Aspartate aminotransferase [Enzymatic activity/volume] in Serum or Plasma 13-39 [facility] Basophils Auto (Bld) [#/Vol] Ordered By: Priscilla Lang on 04-30-2024 Basophils (Bld) [#/Vol] Automated basophil count 0.0-0.2 [facility] Basophils/100 WBC Auto (Bld) Ordered By: Priscilla Lang on 04-30-2024 Basophils/100 WBC (Bld) Automated basophil % . [facility] Bilirubin.total [Mass/volume ] in Serum or PlasmaOrdered By: Priscilla Lang on 04-30-2024 Bilirubin [Mass/Vol] Bilirubin.total [Mass/volume] in Serum or Plasma 0.3-1.0 [facility] Calcium [Mass/volume] in Ser um or PlasmaOrdered By: Priscilla Lang on 04-30-2024 Calcium [Mass/Vol] Calcium [Mass/volume ] in Serum or Plasma 8.6-10.3 [facility] Carbon dioxide, total [Moles /volume] in Serum or PlasmaOrdered By: Priscilla Lang on 04-30-2024 CO2 [Moles/Vol] Carbon dioxide, tota l [Moles/volume] in Serum or Plasma 21.0-31.0 [facility] Chloride [Moles/volume] in S elliot or PlasmaOrdered By: Priscilla Lang on 04-30-2024 Chloride [Moles/Vol] Chloride [Moles/vol ume] in Serum or Plasma 98-107 [facility] Complete Blood Count Auto Di ffon 04-30-2024 Basophils (Bld) [#/Vol] 0.0 10*3/uL Normal 0.0-0.2 [facility] Comment on above: Result Comment: PERF ORMED BY: [place] [address] PATHOLOGIST SWING GRINDER LE MACE M.D. Performed By: #### C MP, MG, PHOS, CBC #### [address] Basophils/100 WBC (Bld) 0.4 % Normal . [facility] Comment on above: Performed By: #### C MP, MG, PHOS, CBC #### [address] Eosinophils (Bld) [#/Vol] 0.2 10*3/uL Normal 0.0-0.45 [facility] Comment on above: Performed By: #### C MP, MG, PHOS, CBC #### [address] Eosinophils/100 WBC (Bld) 2.9 % Normal . [facility] Comment on above: Performed By: #### C MP, MG, PHOS, CBC #### [address] Erythrocyte distribution width (RBC) [Ratio] 15.4 % High 11.9-15.3 [facility] Comment on above: Performed By: #### C MP, MG, PHOS, CBC #### [address] Hematocrit (Bld) [Volume fraction] 44.3 % Normal 34.0-46.4 [facility] Comment on above: Performed By: #### C MP, MG, PHOS, CBC #### [address] Hemoglobin (Bld) [Mass/Vol] 14.7 g/dL Normal 11.8-15.4 [facility] Comment on above: Performed By: #### C MP, MG, PHOS, CBC #### [address] Lymphocytes (Bld) [#/Vol] 1.8 10*3/uL Normal 1.00-4.8 [facility] Comment on above: Performed By: #### C MP, MG, PHOS, CBC #### [address] Lymphocytes/100 WBC (Bld) 24.9 % Normal . [facility] Comment on above: Performed By: #### C MP, MG, PHOS, CBC #### [address] MCH (RBC) [Entitic mass] 31.4 pg Normal 24.7-34.3 [facility] Comment on above: Performed By: #### C MP, MG, PHOS, CBC #### [address] MCV (RBC) [Entitic vol] 94.4 fL Normal 80-100 [facility] Comment on above: Performed By: #### C MP, MG, PHOS, CBC #### [address] Mean Corpuscular HGB Conc 33.3 g/dL Normal 32.0-35.0 [facility] Comment on above: Performed By: #### C MP, MG, PHOS, CBC #### [address] Monocytes (Bld) [#/Vol] 0.6 10*3/uL Normal 0.0-0.8 [facility] Comment on above: Performed By: #### C MP, MG, PHOS, CBC #### [address] Monocytes/100 WBC (Bld) 8.3 % Normal . [facility] Comment on above: Performed By: #### C MP, MG, PHOS, CBC #### [address] Neutrophils (Bld) [#/Vol] 4.6 10*3/uL Normal 1.8-7.7 [facility] Comment on above: Performed By: #### C MP, MG, PHOS, CBC #### [address] Neutrophils/100 WBC (Bld) 63.5 % Normal . [facility] Comment on above: Performed By: #### C MP, MG, PHOS, CBC #### [address] NRBC% 0.0 /100{WBC} Normal 0-0.5 [facility] Comment on above: Performed By: #### C MP, MG, PHOS, CBC #### [address] Platelet mean volume (Bld) [Entitic vol] 9.5 fL Normal 6.3-10.7 [facility] Comment on above: Performed By: #### C MP, MG, PHOS, CBC #### [address] Platelets (Bld) [#/Vol] 119 10*3/uL Low 150-450 [facility] Comment on above: Performed By: #### C MP, MG, PHOS, CBC #### [address] RBC (Bld) [#/Vol] 4.70 10*6/uL Normal 3.60-5.00 [facility] Comment on above: Performed By: #### C MP, MG, PHOS, CBC #### [facility] [address] WBC (Bld) [#/Vol] 7.3 10*3/uL Normal 3.8-11.6 [facility] Comment on above: Performed By: #### C MP, MG, PHOS, CBC #### [address] Comprehensive Metabolic Pane juan 04-30-2024 Albumin [Mass/Vol] 3.5 g/dL Normal 3.5-5.7 [facility] Comment on above: Performed By: #### C MP, MG, PHOS, CBC #### [address] Albumin/Globulin [Mass ratio] 1.2 {ratio} Normal [facility] Comment on above: Performed By: #### C MP, MG, PHOS, CBC #### [address] ALP [Catalytic activity/Vol] 85 U/L Normal 34-104 [facility] Comment on above: Performed By: #### C MP, MG, PHOS, CBC #### [address] ALT [Catalytic activity/Vol] 16 U/L Normal 7-52 [facility] Comment on above: Performed By: #### C MP, MG, PHOS, CBC #### [address] Anion gap [Moles/Vol] 10.9 mmol/L Normal 6.0-15.0 [facility] Comment on above: Performed By: #### C MP, MG, PHOS, CBC #### [address] AST [Catalytic activity/Vol] 23 U/L Normal 13-39 [facility] Comment on above: Performed By: #### C MP, MG, PHOS, CBC #### [address] Bilirubin [Mass/Vol] 0.5 mg/dL Normal 0.3-1.0 [facility] Comment on above: Performed By: #### C MP, MG, PHOS, CBC #### [address] Calcium [Mass/Vol] 9.3 mg/dL Normal 8.6-10.3 [facility] Comment on above: Performed By: #### C MP, MG, PHOS, CBC #### [address] Chloride [Moles/Vol] 106 mmol/L Normal 98-107 [facility] Comment on above: Performed By: #### C MP, MG, PHOS, CBC #### [address] CO2 [Moles/Vol] 26.9 mmol/L Normal 21.0-31.0 [facility] Comment on above: Performed By: #### C MP, MG, PHOS, CBC #### [address] Creatinine [Mass/Vol] 0.80 mg/dL Normal 0.60-1.20 [facility] Comment on above: Performed By: #### C MP, MG, PHOS, CBC #### [place] [address] [place] Creatinine Clr Calc Pharmacy 82.38 Normal [facility] Comment on above: Performed By: #### C MP, MG, PHOS, CBC #### [place] [address] [place] GFR/1.73 sq M.predicted MDRD (S/P/Bld) [Vol rate/Area] mL/min/{1.73_m2} Normal [facility] Comment on above: Performed By: #### C MP, MG, PHOS, CBC #### [place] [id number] [place] Globulin (S) [Mass/Vol] 2.9 g/dL Normal [facility] Comment on above: Performed By: #### C MP, MG, PHOS, CBC #### [address] Glucose [Mass/Vol] 130 mg/dL High 70-100 [facility] Comment on above: Result Comment: [facility] Glucose Reference Range is dependent on time and content of last meal. Glucose of more than 200 mg/dL in a nonstressed, ambulatory subject supports the diagnosis of Diabetes Mellitus. ADA recommended reference range Performed By: #### C MP, MG, PHOS, CBC #### [address] Potassium [Moles/Vol] 3.8 mmol/L Normal 3.5-5.1 [facility] Comment on above: Performed By: #### C MP, MG, PHOS, CBC #### [address] Protein [Mass/Vol] 6.4 g/dL Normal 6.4-8.9 [facility] Comment on above: Performed By: #### C MP, MG, PHOS, CBC #### [address] Sodium [Moles/Vol] 140 mmol/L Normal 136-145 [facility] Comment on above: Performed By: #### C MP, MG, PHOS, CBC #### [address] Urea nitrogen [Mass/Vol] 9 mg/dL Normal 7-25 [facility] Comment on above: Performed By: #### C MP, MG, PHOS, CBC #### [place] [address] [place] Creatinine [Mass/volume] in Serum or PlasmaOrdered By: Priscilla Lang on 04-30-2024 Creatinine [Mass/Vol] Creatinine [Mass/v olume] in Serum or Plasma 0.60-1.20 [facility] Eosinophils Auto (Bld) [#/Vo l]Ordered By: Priscilla Lang on 04-30-2024 Eosinophils (Bld) [#/Vol] Automated eosinophil count 0.0-0.45 [facility] Eosinophils/100 WBC Auto (Bl d)Ordered By: Priscilla Herorenny on 04-30-2024 Eosinophils/100 WBC (Bld) Automated eosinophil % . [facility] Erythrocyte distribution wid th Auto (RBC) [Ratio]Ordered By: Priscilla Lang on 04-30-2024 Erythrocyte distribution width (RBC) [Ratio] Erythrocyte distribution width [Ratio] by Automated count High 11.9-15.3 [facility] Globulin Calc (S) [Mass/Vol] Ordered By: Priscilla Lang on 04-30-2024 Globulin (S) [Mass/Vol] Serum globulin measurement by calculation (mass/volume) [facility] Glucose Glucometer (BldC) [M ass/Vol]Ordered By: Priscilla Lang on 04-30-2024 Glucose [Mass/Vol] Capillary blood gluc ose measurement by glucometer (mass/volume) [facility] Comment on above: Random Glucose Refer ence Range is dependent on time and content of last meal. Glucose of more than 200 mg/dL in a nonstressed, ambulatory subject supports the diagnosis of Diabetes Mellitus. Glucose Poct Glucometerson 0 04-30-2024 Glucose [Mass/Vol] 154 mg/dL Normal [facility] Comment on above: Result Comment: [place] Glucose Reference Range is dependent on time and content of last meal. Glucose of more than 200 mg/dL in a nonstressed, ambulatory subject supports the diagnosis of Diabetes Mellitus. PERFORMED BY: [place] [address] PATHOLOGIST SWING GRINDER LE MACE M.D. Performed By: #### C MP, MG, PHOS, CBC #### [address] Glucose [Mass/Vol] 134 mg/dL Normal [facility] Comment on above: Result Comment: [place] Glucose Reference Range is dependent on time and content of last meal. Glucose of more than 200 mg/dL in a nonstressed, ambulatory subject supports the diagnosis of Diabetes Mellitus. PERFORMED BY: [place] [address] PATHOLOGIST SWING GRINDER LE MACE M.D. Performed By: #### T SH3 wRFLX, LIPID #### [address] Glucose [Mass/volume] in Ser um or PlasmaOrdered By: Priscilla Lang on 04-30-2024 Glucose [Mass/Vol] Glucose [Mass/volume ] in Serum or Plasma High 70-100 [facility] Comment on above: ADA recommended refe rence rangeRandom Glucose Reference Range is dependent on time and content of last meal. Glucose of more than 200 mg/dL in a nonstressed, ambulatory subject supports the diagnosis of Diabetes Mellitus. Hematocrit Auto (Bld) [Volum e fraction]Ordered By: Priscilla Lang on 04-30-2024 Hematocrit (Bld) [Volume fraction] Hematocrit [Volume Fraction] of Blood by Automated count 34.0-46.4 [facility] Hemoglobin [Mass/volume] in BloodOrdered By: Priscilla Lang on 04-30-2024 Hemoglobin (Bld) [Mass/Vol] Hemoglobin [Mass/volume] in Blood 11.8-15.4 [facility] Leukocytes [#/volume] correc deepika for nucleated erythrocytes in Blood by Automated counOrdered By: Priscilla Lang on 04-30-2024 WBC corrected for nucl RBC Auto (Bld) [#/Vol] Leukocytes [#/volume] corrected for nucleated erythrocytes in Blood by Automated coun 3.8-11.6 [facility] Lymphocytes Auto (Bld) [#/Vo l]Ordered By: Priscilla Lang on 04-30-2024 Lymphocytes (Bld) [#/Vol] Lymphocytes [#/volume] in Blood by Automated count 1.00-4.8 [facility] Lymphocytes/100 WBC Auto (Bl d)Ordered By: Priscilla Lang on 04-30-2024 Lymphocytes/100 WBC (Bld) Lymphocytes/100 leukocytes in Blood by Automated count . [facility] MCH Auto (RBC) [Entitic mass ]Ordered By: Priscilla Lang on 04-30-2024 MCH (RBC) [Entitic mass] MCH [Entitic mass] by Automated count 24.7-34.3 [facility] MCHC Auto (RBC) [Mass/Vol]Or dered By: Priscilla Lang on 04-30-2024 MCHC (RBC) [Mass/Vol] MCHC [Mass/volume] by Automated count 32.0-35.0 [facility] MCV Auto (RBC) [Entitic vol] Ordered By: Priscilla Lang on 04-30-2024 MCV (RBC) [Entitic vol] MCV [Entitic vol ume] by Automated count 80-100 [facility] Magnesiumon 04-30-2024 Magnesium [Mass/Vol] 1.7 mg/dL Low 1.9-2.7 [facility] Comment on above: Result Comment: PERF ORMED BY: [facility] [address] [place] [address] PATHOLOGIST SWING GRINDER LE MACE M.D. Performed By: #### C MP, MG, PHOS, CBC #### [facility] [address] Magnesium [Mass/volume] in S elliot or PlasmaOrdered By: Priscilla Lang on 04-30-2024 Magnesium [Mass/Vol] Magnesium [Mass/vol ume] in Serum or Plasma Low 1.9-2.7 [facility] Monocytes Auto (Bld) [#/Vol] Ordered By: Priscilla Lang on 04-30-2024 Monocytes (Bld) [#/Vol] Automated blood monocyte count 0.0-0.8 [facility] Monocytes/100 WBC Auto (Bld) Ordered By: Priscilla Lang on 04-30-2024 Monocytes/100 WBC (Bld) Automated monocyte % . [facility] Neutrophils Auto (Bld) [#/Vo l]Ordered By: Priscilla Lang on 04-30-2024 Neutrophils (Bld) [#/Vol] Neutrophils [#/volume] in Blood by Automated count 1.8-7.7 [facility] Neutrophils/100 WBC Auto (Bl d)Ordered By: Priscilla Lang on 04-30-2024 Neutrophils/100 WBC (Bld) Automated neutrophil % . [facility] No Panel InformationOrdered By: Priscilla Lang on 04-30-2024 Estimated GFR (CKD-EPI) > 60.0 mL/Min [facility] Creatinine Clearance (Chem 82.38 [facility] Nucleated erythrocytes [Pres ence] in Blood by Automated countOrdered By: Priscilla Lang on 04-30-2024 Nucleated RBC Auto Ql (Bld) Nucleated erythrocytes [Presence] in Blood by Automated count 0-0.5 [facility] Phosphate [Mass/volume] in S elliot or PlasmaOrdered By: Priscilla Lang on 04-30-2024 Phosphate [Mass/Vol] Phosphate [Mass/vol ume] in Serum or Plasma 2.5-4.5 [facility] Phosphoruson 04-30-2024 Phosphate [Mass/Vol] 2.9 mg/dL Normal 2.5-4.5 [facility] Comment on above: Performed By: #### C MP, MG, PHOS, CBC #### [address] Platelet mean volume Auto (B ld) [Entitic vol]Ordered By: Priscilla Lang on 04-30-2024 Platelet mean volume (Bld) [Entitic vol] Platelet mean volume [Entitic volume] in Blood by Automated count 6.3-10.7 [facility] Platelets Auto (Bld) [#/Vol] Ordered By: Priscilla Lang on 04-30-2024 Platelets (Bld) [#/Vol] Platelets [#/vol ume] in Blood by Automated count Low 150-450 [facility] Potassium [Moles/volume] in Serum or PlasmaOrdered By: Priscilla Lang on 04-30-2024 Potassium [Moles/Vol] Potassium [Moles/v olume] in Serum or Plasma 3.5-5.1 [facility] Protein [Mass/volume] in Ser um or PlasmaOrdered By: Priscilla Lang on 04-30-2024 Protein [Mass/Vol] Protein [Mass/volume ] in Serum or Plasma 6.4-8.9 [facility] RBC Auto (Bld) [#/Vol]Ordere d By: Priscilla Lang on 04-30-2024 RBC (Bld) [#/Vol] Erythrocytes [#/volu me] in Blood by Automated count 3.60-5.00 [facility] Serum or plasma albumin/glob ulin mass ratioOrdered By: rPiscilla Lang on 04-30-2024 Albumin/Globulin [Mass ratio] Serum or plasma albumin/globulin mass ratio [facility] Serum or plasma anion gap de terminationOrdered By: Priscilla Lang on 04-30-2024 Anion gap [Moles/Vol] Serum or plasma an ion gap determination 6.0-15.0 [facility] Sodium [Moles/volume] in Ser um or PlasmaOrdered By: Priscilla Lang on 04-30-2024 Sodium [Moles/Vol] Sodium [Moles/volume ] in Serum or Plasma 136-145 [facility] Urea nitrogen [Mass/volume] in Serum or PlasmaOrdered By: Priscilla Lang on 04-30-2024 Urea nitrogen [Mass/Vol] Urea nitrogen [Mass/volume] in Serum or Plasma 7-25 [facility] WBC Auto (Bld) [#/Vol]Ordere d By: Priscilla Lang on 04-30-2024 WBC (Bld) [#/Vol] Leukocytes [#/volume ] in Blood by Automated count 3.8-11.6 [facility] Amphetamine Screen Ql (U)Ord ered By: Priscilla Lang on 04-29-2024 Amphetamines Ql (U) Amphetamines screen Negativ e [facility] Barbiturates [Presence] in U rine by Screen methodOrdered By: Priscilla Lang on 04-29-2024 Barbiturates Screen Ql (U) Barbiturates [Presence] in Urine by Screen method Negative [facility] Basic Metabolic Panelon Anion gap [Moles/Vol] 11.3 mmol/L Normal 6.0-15.0 [facility] Comment on above: Order Comment: FASTI NG N Performed By: #### L IPID, BMP #### [address] [place] [address] [place] Calcium [Mass/Vol] 8.9 mg/dL Normal 8.6-10.3 [facility] Comment on above: Order Comment: FASTI NG N Performed By: #### L IPID, BMP #### [facility] [address] [place] [address] [place] Chloride [Moles/Vol] 106 mmol/L Normal 98-107 [facility] Comment on above: Order Comment: FASTI NG N Performed By: #### L IPID, BMP #### [place] [address] [place] CO2 [Moles/Vol] 25.2 mmol/L Normal 21.0-31.0 [facility] Comment on above: Order Comment: FASTI NG N Performed By: #### L IPID, BMP #### [place] [address] [place] Creatinine [Mass/Vol] 0.85 mg/dL Normal 0.60-1.20 [facility] Comment on above: Order Comment: FASTI NG N Performed By: #### L IPID, BMP #### [place] [address] [place] Creatinine Clr Calc Pharmacy 77.21 Normal [facility] Comment on above: Order Comment: FASTI NG N Performed By: #### L IPID, BMP #### [place] [address] [place] GFR/1.73 sq M.predicted MDRD (S/P/Bld) [Vol rate/Area] mL/min/{1.73_m2} Normal [facility] Comment on above: Order Comment: FASTI NG N Performed By: #### L IPID, BMP #### [place] [address] [place] Glucose [Mass/Vol] 206 mg/dL High 70-100 [facility] Comment on above: Order Comment: FASTI NG N Result Comment: [place] Glucose Reference Range is dependent on time and content of last meal. Glucose of more than 200 mg/dL in a nonstressed, ambulatory subject supports the diagnosis of Diabetes Mellitus. ADA recommended reference range Performed By: #### L IPID, BMP #### [facility] [address] Potassium [Moles/Vol] 3.5 mmol/L Normal 3.5-5.1 [facility] Comment on above: Order Comment: FASTI NG N Performed By: #### L IPID, BMP #### [facility] [address] Sodium [Moles/Vol] 139 mmol/L Normal 136-145 [facility] Comment on above: Order Comment: FASTI NG N Performed By: #### L IPID, BMP #### [facility] [address] Urea nitrogen [Mass/Vol] 9 mg/dL Normal 7-25 [facility] Comment on above: Order Comment: FASTI NG N Performed By: #### L IPID, BMP #### [facility] [address] Benzodiazepines Screen Ql (U )Ordered By: Priscilla Lang on 04-29-2024 Benzodiazepines Ql (U) Benzodiazepines [Presence] in Urine by Screen method Negative [facility] Benzoylecgonine [Presence] i n Urine by Screen methodOrdered By: Priscilla Lang on 04-29-2024 Benzoylecgonine Screen Ql (U) Benzoylecgonine [Presence] in Urine by Screen method Negative [facility] Cannabinoids [Presence] in U rine by Screen methodOrdered By: Priscilla Lang on 04-29-2024 Cannabinoids Screen Ql (U) Cannabinoids [Presence] in Urine by Screen method Negative [facility] Comment on above: These are unconfirme d results and should not be used for legal purposes. Drug Cut-Off Concentration: AMPH 1000 ng/mL KENDRICK 200 ng/mL HEATHER 200 ng/mL COCM 300 ng/mL OP 300 ng/mL PCP 25 ng/mL THC 20 ng/mL Cholesterol [Mass/volume] in Serum or PlasmaOrdered By: Jori Hearn on 04-29-2024 Cholesterol [Mass/Vol] Cholesterol [Mass/volume] in Serum or Plasma Low 140-200 [facility] Comment on above: Chol less than 200 m g/dl low riskChol 201-239 mg/dl borderline riskChol 240 mg/dl and greater high risk Cholesterol in HDL [Mass/vol ume] in Serum or PlasmaOrdered By: Jori Hearn on 04-29-2024 Cholesterol in HDL [Mass/Vol] Serum or plasma high density lipoprotein (HDL) cholesterol measurement [facility] Comment on above: HDL CHOL ATP-III CLA SSIFICATION Cardiovascular RiskHDL > or equal to 60 mg/dL LOWHDL < 40 mg/dL HIGH Cholesterol in LDL Calc [Mas s/Vol]Ordered By: Jori Hearn on 04-29-2024 Cholesterol in LDL [Mass/Vol] Cholesterol in LDL [Mass/volume] in Serum or Plasma by calculation 0-100 [facility] Comment on above: LDL ATP III CLASSIFI CATIONLDL less than 100 mg/dL OptimalLDL 100-129 mg/dL Near or above optimalLDL 130-159 mg/dL Borderline highLDL 160-189 mg/dL HighLDL greater than 189 mg/dL Very high Cholesterol in VLDL Calc [Ma ss/Vol]Ordered By: Jori Hearn on 04-29-2024 Cholesterol in VLDL [Mass/Vol] Cholesterol in VLDL [Mass/volume] in Serum or Plasma by calculation [facility] Drug Screen,Urineon 04-29-19 25 Amphetamine Screen,Urine Negative Normal Negative [facility] Comment on above: Performed By: #### T SH3 wRFLX, LIPID #### [facility] [address] [place] [address] [place] Barbiturate Screen,Urine Negative Normal Negative [facility] Comment on above: Performed By: #### T SH3 wRFLX, LIPID #### [facility] [address] [place] [id number] [place] Benzodiazepines Screen,Urine Negative Normal Negative [facility] Comment on above: Performed By: #### T SH3 wRFLX, LIPID #### [facility] [address] [place] [address] [place] Cannabinoid Screen,Urine Negative Normal Negative [facility] Comment on above: Result Comment: Thes e are unconfirmed results and should not be used for legal purposes. Drug Cut-Off Concentration: AMPH 1000 ng/mL KENDRICK 200 ng/mL HEATHER 200 ng/mL COCM 300 ng/mL OP 300 ng/mL PCP 25 ng/mL THC 20 ng/mL PERFORMED BY: [place] [address] PATHOLOGIST SWING GRINDER LE MACE M.D. Performed By: #### T SH3 wRFLX, LIPID #### [address] Cocaine Screen,Urine Negative Normal Negative [facility] Comment on above: Performed By: #### T SH3 wRFLX, LIPID #### [address] Opiate Screen,Urine Negative Normal Negative [facility] Comment on above: Performed By: #### T SH3 wRFLX, LIPID #### [address] Phencyclidine Screen,Urine Negative Normal Negative [facility] Comment on above: Performed By: #### T SH3 wRFLX, LIPID #### [address] Glucose Poct Glucometerson 0 04-29-2024 Glucose [Mass/Vol] 165 mg/dL Normal [facility] Comment on above: Result Comment: [facility] Glucose Reference Range is dependent on time and content of last meal. Glucose of more than 200 mg/dL in a nonstressed, ambulatory subject supports the diagnosis of Diabetes Mellitus. PERFORMED BY: [place] [address] PATHOLOGIST SWING GRINDER LE MACE M.D. Performed By: #### T SH3 wRFLX, LIPID #### [facility] [address] [place] [address] Commemt1 Glu2: Cleaned Meter Normal [facility] Comment on above: Result Comment: PERF ORMED BY: [place] [address] PATHOLOGIST SWING GRINDER LE MACE M.D. Performed By: #### C MP, MG, PHOS, CBC #### [facility] [address] Glucose [Mass/Vol] 188 mg/dL Normal [facility] Comment on above: Result Comment: [place] Glucose Reference Range is dependent on time and content of last meal. Glucose of more than 200 mg/dL in a nonstressed, ambulatory subject supports the diagnosis of Diabetes Mellitus. Performed By: #### C MP, MG, PHOS, CBC #### [facility] [address] Commemt1 Glu2: Cleaned Meter Normal [facility] Comment on above: Result Comment: PERF ORMED BY: [place] [address] PATHOLOGIST SWING GRINDER LE MACE M.D. Performed By: #### T SH3 wRFLX, LIPID #### [address] Glucose [Mass/Vol] 192 mg/dL Normal [facility] Comment on above: Result Comment: [place] Glucose Reference Range is dependent on time and content of last meal. Glucose of more than 200 mg/dL in a nonstressed, ambulatory subject supports the diagnosis of Diabetes Mellitus. Performed By: #### T SH3 wRFLX, LIPID #### [address] Glucose [Mass/Vol] 210 mg/dL Normal [facility] Comment on above: Result Comment: [place] Glucose Reference Range is dependent on time and content of last meal. Glucose of more than 200 mg/dL in a nonstressed, ambulatory subject supports the diagnosis of Diabetes Mellitus. PERFORMED BY: [place] [address] PATHOLOGIST SWING GRINDER LE MACE M.D. Performed By: #### T SH3 wRFLX, LIPID #### [address] Lipid Panelon 04-29-2024 Cholesterol [Mass/Vol] 106 mg/dL Low 140-200 [facility] Comment on above: Order Comment: FASTI NG N Result Comment: Chol less than 200 mg/dl low risk Chol 201-239 mg/dl borderline risk Chol 240 mg/dl and greater high risk Performed By: #### L IPID, BMP #### [facility] [address] Cholesterol in HDL [Mass/Vol] 31 mg/dL Normal 23-92 [facility] Comment on above: Order Comment: FASTI NG N Result Comment: HDL CHOL ATP-III CLASSIFICATION Cardiovascular Risk HDL > or equal to 60 mg/dL LOW HDL < 40 mg/dL HIGH Performed By: #### L IPID, BMP #### [facility] [address] Cholesterol.total/Monica sterol in HDL [Mass ratio] 3.4 {ratio} Normal <5.0 [facility] Comment on above: Order Comment: FASTI NG N Result Comment: PERF ORMED BY: [place] [address] PATHOLOGIST SWING GRINDER LE MACE M.D. Performed By: #### L IPID, BMP #### [address] LDL Cholesterol,Calculated 45 mg/dL Normal 0-100 [facility] Comment on above: Order Comment: FASTI NG N Result Comment: LDL ATP III CLASSIFICATION LDL less than 100 mg/dL Optimal LDL 100-129 mg/dL Near or above optimal LDL 130-159 mg/dL Borderline high LDL 160-189 mg/dL High LDL greater than 189 mg/dL Very high Performed By: #### L IPID, BMP #### [facility] [address] [place] [address] [place] Triglyceride w/Reflex 151 mg/dL High 0-149 [facility] Comment on above: Order Comment: FASTI NG N Result Comment: TRIG ATP III CLASSIFICATION TRIG less than 150 mg/dL Normal TRIG 150-199 mg/dL Borderline high TRIG 200-500 mg/dL High TRIG greater than 500 mg/dL Very high Standard traceable to the Center for Disease Conrtrol and Prevention (CDC) test method. Performed By: #### L IPID, BMP #### [facility] [address] VLDL CHOLESTEROL 30 mg/dL Normal [facility] Comment on above: Order Comment: GARCIAEmi TONY N Performed By: #### L IPID, BMP #### [facility] [address] No Panel InformationOrdered By: Priscilla Lang on 04-29-2024 Bedside Glucose Comment Glu2: cleaned meter [facility] Opiates [Presence] in Urine by Screen methodOrdered By: Priscilla Lang on 04-29-2024 Opiates Screen Ql (U) Opiates [Presence] in Urine by Screen method Negative [facility] Phencyclidine Screen Ql (U)O rdered By: Priscilla Lang on 04-29-2024 Phencyclidine Ql (U) Phencyclidine [Pres ence] in Urine by Screen method Negative [facility] Serum or plasma total choles terol/high density lipoprotein (HDL) cholesterol mass ratOrdered By: Jori Hearn on 04-29-2024 Cholesterol.total/Monica sterol in HDL [Mass ratio] Serum or plasma total cholesterol/high density lipoprotein (HDL) cholesterol mass rat <5.0 [facility] Triglyceride [Mass/volume] i n Serum or PlasmaOrdered By: Jori Hearn on 04-29-2024 Triglyceride [Mass/Vol] Triglyceride [Mass/volume] in Serum or Plasma High 0-149 [facility] Comment on above: TRIG ATP III CLASSIF ICATIONTRIG less than 150 mg/dL NormalTRIG 150-199 mg/dL Borderline highTRIG 200-500 mg/dL High TRIG greater than 500 mg/dL Very highStandard traceable to the Center for Disease Conrtrol and Prevention (CDC) test method. Urine Cultureon 04-29-2024 Bacteria identified Cx Nom (U) 15,000 colonies/ml mixed bacterial skin contaminants 2 Days PERFORMED BY: [place] [address] PATHOLOGIST SWING GRINDER LE MACE M.D. Normal [facility] Comment on above: Performed By: #### T SH3 wRFLX, LIPID #### [facility] [address] [place] [id number] [facility] Urine cultureOrdered By: Bhargav Lang on 04-29-2024 Bacteria identified Cx Nom (U) Urine culture [facility] Bacteria identified Cx Nom (U) Urine culture [facility] Alanine aminotransferase [En zymatic activity/volume] in Serum or PlasmaOrdered By: Wesley Villafuerte on 04-28-2024 ALT [Catalytic activity/Vol] Alanine aminotransferase [Enzymatic activity/volume] in Serum or Plasma 7-52 [facility] Albumin [Mass/volume] in Ser um or Plasma by Bromocresol green (BCG) dye binding methoOrdered By: Wesley Villafuerte on 04-28-2024 Albumin BCG dye [Mass/Vol] Albumin [Mass/volume] in Serum or Plasma by Bromocresol green (BCG) dye binding metho 3.5-5.7 [facility] Alkaline phosphatase [Enzyma tic activity/volume] in Serum or PlasmaOrdered By: Wesley Villafuerte on 04-28-2024 ALP [Catalytic activity/Vol] Alkaline phosphatase [Enzymatic activity/volume] in Serum or Plasma 34-104 [facility] Anisocytosis LM Ql (Bld)Orde red By: Wesley Villafuerte on 04-28-2024 Anisocytosis Ql (Bld) Anisocytosis [Pres ence] in Blood by Light microscopy [facility] Appearance of UrineOrdered B y: Wesley Villafuerte on 04-28-2024 Appearance (U) Urine appearance Clear [facility] Aspartate aminotransferase [ Enzymatic activity/volume] in Serum or PlasmaOrdered By: Wesley Villafuerte on 04-28-2024 AST [Catalytic activity/Vol] Aspartate aminotransferase [Enzymatic activity/volume] in Serum or Plasma 13-39 [facility] B-Type Natriuretic Peptideon 04-28-2024 Natriuretic peptide B (Bld) [Mass/Vol] 25.0 pg/mL Normal 5-100 [facility] Comment on above: Result Comment: PERF ORMED BY: [place] [address] PATHOLOGIST SWING GRINDER LE MACE M.D. Performed By: #### T SH3 wRFLX, LIPID #### [facility] [address] [place], [place] [id number] [place] Bacteria [Presence] in Urine by AutomatedOrdered By: Wesley Villafuerte on 04-28-2024 Bacteria Auto Ql (U) Bacteria [Presence] in Urine by Automated None Seen [facility] Basophils Auto (Bld) [#/Vol] Ordered By: Wesley Villafuerte on 04-28-2024 Basophils (Bld) [#/Vol] Automated basophil count 0.0-0.2 [facility] Basophils/100 WBC Auto (Bld) Ordered By: Wesley Villafuerte on 04-28-2024 Basophils/100 WBC (Bld) Automated basophil % . [facility] Bilirubin Test strip Ql (U)O rdered By: Wesley Villafuerte on 04-28-2024 Bilirubin Ql (U) Bilirubin.total [Presence] in Urine by Test strip Negative [facility] Bilirubin.total [Mass/volume ] in Serum or PlasmaOrdered By: Wesley Villafuerte on 04-28-2024 Bilirubin [Mass/Vol] Bilirubin.total [Mass/volume] in Serum or Plasma 0.3-1.0 [facility] BioFire Not Detectedon 04-28 BioFire Not Detected Not detected Normal Not Detecte [facility] Comment on above: Result Comment: This is a duplicate RP2.1 COVID (PCR) result to be used for statistical tracking purpose only. PERFORMED BY: [place] [address] PATHOLOGIST SWING GRINDER LE MACE M.D. Performed By: #### L IPID, BMP #### [address] COVID-19 Detected/Not Detect edOrdered By: Wesley Villafuerte on 04-28-2024 SARS-CoV-2 (COVID-19) RNA TEJINDER+non-probe Ql (Nph) Not detected Not Detecte [facility] Comment on above: This is a duplicate RP2.1 COVID (PCR) result to be used for statistical tracking purpose only. CT angio headon 04-28-2024 CT angio head [facility] [place] [address] [place] [address] CT Scan Report Signed Patient: Taye Gay MR#: [id number] 19 : 1955 Acct:[id number] Age/Sex: 68 / F ADM Date: 04/28/24 Loc: ER Room: Type: [facility] ER Attending Dr: Copies to: Wesley Villafuerte PA-C Ordering Provider: Wesley Villafuerte PA-C Date of Service: 04/28/24 CT/CT angio head: weakness ([id number]) CT/CT angio neck: weakness ([id number]) CT/CT head/brain wo con: weakness CT head/brain [...] Oz Bowling M.D.04/28/2024 9:44 PM Dictation Location: [place] [address] Transcribed By: AMY 04/28/242143 Dictated By: Oz Bowling II, MD 04/28/242129 Signed By: 04/28/242143 Normal [facility] Calcium [Mass/volume] in Ser um or PlasmaOrdered By: Wesley Villafuerte on 04-28-2024 Calcium [Mass/Vol] Calcium [Mass/volume ] in Serum or Plasma 8.6-10.3 [facility] Carbon dioxide, total [Moles /volume] in Serum or PlasmaOrdered By: Wesley Villafuerte on 04-28-2024 CO2 [Moles/Vol] Carbon dioxide, tota l [Moles/volume] in Serum or Plasma 21.0-31.0 [facility] Chloride [Moles/volume] in S elliot or PlasmaOrdered By: Wesley Villafuerte on 04-28-2024 Chloride [Moles/Vol] Chloride [Moles/vol ume] in Serum or Plasma 98-107 [facility] Color Auto (U)Ordered By: Colin Villafuerte on 04-28-2024 Color (U) Color of Urine by Auto Yellow [facility] Comprehensive Metabolic Pane juan 04-28-2024 Albumin [Mass/Vol] 3.7 g/dL Normal 3.5-5.7 [facility] Comment on above: Performed By: #### T SH3 wRFLX, LIPID #### [address] Albumin/Globulin [Mass ratio] 1.2 {ratio} Normal [facility] Comment on above: Performed By: #### T SH3 wRFLX, LIPID #### [facility] [address] [place] [address] [place] ALP [Catalytic activity/Vol] 86 U/L Normal 34-104 [facility] Comment on above: Performed By: #### T SH3 wRFLX, LIPID #### [facility] [address] [place] [id number] [place] ALT [Catalytic activity/Vol] 20 U/L Normal 7-52 [facility] Comment on above: Performed By: #### T SH3 wRFLX, LIPID #### [facility] [address] [place] [address] [place] Anion gap [Moles/Vol] 12.7 mmol/L Normal 6.0-15.0 [facility] Comment on above: Performed By: #### T SH3 wRFLX, LIPID #### [facility] [address] [place] [address] [place] AST [Catalytic activity/Vol] 25 U/L Normal 13-39 [facility] Comment on above: Performed By: #### T SH3 wRFLX, LIPID #### [facility] [address] [place] [address] [place] Bilirubin [Mass/Vol] 0.3 mg/dL Normal 0.3-1.0 [facility] Comment on above: Performed By: #### T SH3 wRFLX, LIPID #### [facility] [address] [place] [address] [place] Calcium [Mass/Vol] 9.7 mg/dL Normal 8.6-10.3 [facility] Comment on above: Performed By: #### T SH3 wRFLX, LIPID #### [facility] [address] [place] [id number] [place] Chloride [Moles/Vol] 104 mmol/L Normal 98-107 [facility] Comment on above: Performed By: #### T SH3 wRFLX, LIPID #### [facility] [address] [place] [id number] [place] CO2 [Moles/Vol] 24.2 mmol/L Normal 21.0-31.0 [facility] Comment on above: Performed By: #### T SH3 wRFLX, LIPID #### [facility] [address] Creatinine [Mass/Vol] 0.85 mg/dL Normal 0.60-1.20 [facility] Comment on above: Performed By: #### T SH3 wRFLX, LIPID #### [facility] [address] [place] [address] [place] Creatinine Clr Calc Pharmacy 77.21 Normal [facility] Comment on above: Performed By: #### T SH3 wRFLX, LIPID #### [facility] [address] [place] [address] [place] GFR/1.73 sq M.predicted MDRD (S/P/Bld) [Vol rate/Area] mL/min/{1.73_m2} Normal [facility] Comment on above: Performed By: #### T SH3 wRFLX, LIPID #### [facility] [address] [place] [address] [place] Globulin (S) [Mass/Vol] 3.1 g/dL Normal [facility] Comment on above: Performed By: #### T SH3 wRFLX, LIPID #### [place] [address] [place] Glucose [Mass/Vol] 231 mg/dL High 70-100 [facility] Comment on above: Result Comment: [facility] Glucose Reference Range is dependent on time and content of last meal. Glucose of more than 200 mg/dL in a nonstressed, ambulatory subject supports the diagnosis of Diabetes Mellitus. ADA recommended reference range Performed By: #### T SH3 wRFLX, LIPID #### [facility] [address] Potassium [Moles/Vol] 3.9 mmol/L Normal 3.5-5.1 [facility] Comment on above: Result Comment: Hemo lysis is present at a level that could interfere with the result. Contact lab if redraw is required Performed By: #### T SH3 wRFLX, LIPID #### [facility] [address] [place] [address] [place] Protein [Mass/Vol] 6.8 g/dL Normal 6.4-8.9 [facility] Comment on above: Performed By: #### T SH3 wRFLX, LIPID #### [address] Sodium [Moles/Vol] 137 mmol/L Normal 136-145 [facility] Comment on above: Performed By: #### T SH3 wRFLX, LIPID #### [address] Urea nitrogen [Mass/Vol] 11 mg/dL Normal 7-25 [facility] Comment on above: Performed By: #### T SH3 wRFLX, LIPID #### [address] Creatinine [Mass/volume] in Serum or PlasmaOrdered By: Wesley Villafuerte on 04-28-2024 Creatinine [Mass/Vol] Creatinine [Mass/v olume] in Serum or Plasma 0.60-1.20 [facility] Dipstick and Microscopicon 1 Appearance (U) Clear Normal Clear [facility] Comment on above: Order Comment: Name Collection Type:: Clean-Voided Midstream Performed By: #### A DDONUAPLUS #### [place] [address] [place] Bacteria,Urine Rare Normal None Seen [facility] Comment on above: Order Comment: Name Collection Type:: Clean-Voided Midstream Performed By: #### A DDONUAPLUS #### [place] [address] [place] Bilirubin,Urine Negative Normal Negative [facility] Comment on above: Order Comment: Name Collection Type:: Clean-Voided Midstream Performed By: #### A DDONUAPLUS #### [place] [address] [place] Budding Yeast,Urine Rare High None Seen [facility] Group Comment on above: Order Comment: Name Collection Type:: Clean-Voided Midstream Result Comment: PERF ORMED BY: [place] [phone] PATHOLOGIST SWING GRINDER LE MACE M.D. Performed By: #### A DDONUAPLUS #### [place] [address] [place] Color (U) Light-Yellow Normal Yellow [facility] Comment on above: Order Comment: Name Collection Type:: Clean-Voided Midstream Performed By: #### A DDONUAPLUS #### [place] [address] [place] Glucose Ql (U) >= High Normal [facility] Comment on above: Order Comment: Name Collection Type:: Clean-Voided Midstream Performed By: #### A DDONUAPLUS #### [place] [address] [place] Hyaline Casts,Urine 0 [LPF] Normal 0-8 [facility] Comment on above: Order Comment: Name Collection Type:: Clean-Voided Midstream Performed By: #### A DDONUAPLUS #### [place] [address] [place] Ketones Ql (U) Negative Normal Negative [facility] Comment on above: Order Comment: Name Collection Type:: Clean-Voided Midstream Performed By: #### A DDONUAPLUS #### [place] [address] [place] Leukocyte esterase Test strip Ql (U) Negative Normal Negative [facility] Comment on above: Order Comment: Name Collection Type:: Clean-Voided Midstream Performed By: #### A DDONUAPLUS #### [place] [address] [place] Nitrite,Urine Negative Normal Negative [facility] Comment on above: Order Comment: Name Collection Type:: Clean-Voided Midstream Performed By: #### A DDONUAPLUS #### [place] [address] [place] Occult Blood,Urine 2+ High Negative [facility] Comment on above: Order Comment: Name Collection Type:: Clean-Voided Midstream Result Comment: PERF ORMED BY: [place] [address] PATHOLOGIST SWING GRINDER LE MACE M.D. Performed By: #### A DDONUAPLUS #### [address] pH (U) 5.5 [pH] Normal 5.0-9.0 [facility] Comment on above: Order Comment: Name Collection Type:: Clean-Voided Midstream Performed By: #### A DDONUAPLUS #### [address] Protein,Urine Negative Normal Negative [facility] Comment on above: Order Comment: Name Collection Type:: Clean-Voided Midstream Performed By: #### A DDONUAPLUS #### [address] RBC,Urine 10 [HPF] High 0-4 [facility] Comment on above: Order Comment: Name Collection Type:: Clean-Voided Midstream Performed By: #### A DDONUAPLUS #### [address] Specificy [place],Urine 1.038 High 1.00 1-1.03 0 [facility] Comment on above: Order Comment: Name Collection Type:: Clean-Voided Midstream Performed By: #### A DDONUAPLUS #### [place] [address] [place] Squamous Epithelial Cell,Urine 3 [HPF] High 0-2 [facility] Comment on above: Order Comment: Name Collection Type:: Clean-Voided Midstream Performed By: #### A DDONUAPLUS #### [place] [address] [place] Urobilinogen,Urine Normal Normal Normal [facility] Comment on above: Order Comment: Name Collection Type:: Clean-Voided Midstream Performed By: #### A DDONUAPLUS #### [place] [address] [place] WBC,Urine 5 [HPF] High 0-4 [facility] Comment on above: Order Comment: Name Collection Type:: Clean-Voided Midstream Performed By: #### A DDONUAPLUS #### [address] ECG 12 lead ECGon 04-28-2024 ECG 12 lead ECG [facility] [place] [address] [place] [address] Electrocardiograph Report Signed Patient: Taye Gay MR#: [id number] 19 : 1955 Acct:[id number] Age/Sex: 68 / F ADM Date: 04/28/24 Loc: Room: [address] [place] [address] Type: ADM IN Attending Dr: Jori Hearn [...] Jori Batista MD 05/23 0144 Normal [facility] Eosinophils Auto (Bld) [#/Vo l]Ordered By: Wesley Villafuerte on 04-28-2024 Eosinophils (Bld) [#/Vol] Automated eosinophil count 0.0-0.45 [facility] Eosinophils/100 WBC Auto (Bl d)Ordered By: Wesley Villafuerte on 04-28-2024 Eosinophils/100 WBC (Bld) Automated eosinophil % . [facility] Epithelial cells.squamous [# /area] in Urine sediment by Automated countOrdered By: Wesley Villafuerte on 04-28-2024 Epithelial cells.squamous Auto (Urine sed) [#/Area] Epithelial cells.squamous [#/area] in Urine sediment by Automated count High 0-2 [facility] Erythrocyte distribution wid th Auto (RBC) [Ratio]Ordered By: Wesley Villafuerte on 04-28-2024 Erythrocyte distribution width (RBC) [Ratio] Erythrocyte distribution width [Ratio] by Automated count High 11.9-15.3 [facility] Erythrocyte morphology findi ng [Identifier] in BloodOrdered By: Wesley Villafuerte on 04-28-2024 RBC morphology finding Nom (Bld) RBC morphology [facility] Erythrocytes [#/area] in Uri ne sediment by Automated countOrdered By: Wesley Villafuerte on 04-28-2024 RBC Auto (Urine sed) [#/Area] Erythrocytes [#/area] in Urine sediment by Automated count High 0-4 [facility] Globulin Calc (S) [Mass/Vol] Ordered By: Wesley Villafuerte on 04-28-2024 Globulin (S) [Mass/Vol] Serum globulin measurement by calculation (mass/volume) [facility] Glucose [Mass/volume] in Ser um or PlasmaOrdered By: Wesley Villafuerte on 04-28-2024 Glucose [Mass/Vol] Glucose [Mass/volume ] in Serum or Plasma High 70-100 [facility] Comment on above: ADA recommended refe [...] in Urine by Test strip High Normal [facility] HbA1c HPLC (Bld) [Mass fract ion]on 04-28-2024 HbA1c (Bld) [Mass fraction] Hemoglobin A1c/Hemoglobin.total in Blood by HPLC [facility] Hematocrit Auto (Bld) [Volum e fraction]Ordered By: Wesley Villafuerte on 04-28-2024 Hematocrit (Bld) [Volume fraction] Hematocrit [Volume Fraction] of Blood by Automated count High 34.0-46.4 [facility] Hemoglobin Test strip Ql (U) Ordered By: Wesley Villafuerte on 04-28-2024 Hemoglobin Ql (U) Hemoglobin [Presence ] in Urine by Test strip High Negative [facility] Hemoglobin [Mass/volume] in BloodOrdered By: Wesley Villafuerte on 04-28-2024 Hemoglobin (Bld) [Mass/Vol] Hemoglobin [Mass/volume] in Blood High 11.8-15.4 [facility] Hyaline casts [#/area] in Ur ine sediment by Automated countOrdered By: Wesley Villafuerte on 04-28-2024 Hyaline casts Auto (Urine sed) [#/Area] Hyaline casts [#/area] in Urine sediment by Automated count 0-8 [facility] INR in Platelet poor plasma by Coagulation assayOrdered By: Wesley Villafuerte on 04-28-2024 INR Coag (PPP) [Relative time] INR in Platelet poor plasma by Coagulation assay [facility] Comment on above: INR Therapeutic Rang [...] i n Urine by Test strip Negative [facility] Leukocyte esterase [Presence ] in Urine by Test stripOrdered By: Wesley Villafuerte on 04-28-2024 Leukocyte esterase Test strip Ql (U) Leukocyte esterase [Presence] in Urine by Test strip Negative [facility] Leukocytes [#/area] in Urine sediment by Automated countOrdered By: Wesley Villafuerte on 04-28-2024 WBC Auto (Urine sed) [#/Area] Leukocytes [#/area] in Urine sediment by Automated count High 0-4 [facility] Leukocytes [#/volume] correc deepika for nucleated erythrocytes in Blood by Automated counOrdered By: Wesley Villafuerte on 04-28-2024 WBC corrected for nucl RBC Auto (Bld) [#/Vol] Leukocytes [#/volume] corrected for nucleated erythrocytes in Blood by Automated coun 3.8-11.6 [facility] Lymphocytes Auto (Bld) [#/Vo l]Ordered By: Wesley Villafuerte on 04-28-2024 Lymphocytes (Bld) [#/Vol] Lymphocytes [#/volume] in Blood by Automated count 1.00-4.8 [facility] Lymphocytes/100 WBC Auto (Bl d)Ordered By: Wesley Villafuerte on 04-28-2024 Lymphocytes/100 WBC (Bld) Lymphocytes/100 leukocytes in Blood by Automated count . [facility] MCH Auto (RBC) [Entitic mass ]Ordered By: Wesley Villafuerte on 04-28-2024 MCH (RBC) [Entitic mass] MCH [Entitic mass] by Automated count 24.7-34.3 [facility] MCHC Auto (RBC) [Mass/Vol]Or dered By: Wesley Villafuerte on 04-28-2024 MCHC (RBC) [Mass/Vol] MCHC [Mass/volume] by Automated count 32.0-35.0 [facility] MCV Auto (RBC) [Entitic vol] Ordered By: Wesley Villafuerte on 04-28-2024 MCV (RBC) [Entitic vol] MCV [Entitic vol ume] by Automated count 80-100 [facility] Magnesiumon 04-28-2024 Magnesium [Mass/Vol] 1.7 mg/dL Low 1.9-2.7 [facility] Comment on above: Result Comment: PERF ORMED BY: [place] [address] PATHOLOGIST SWING GRINDER LE MACE M.D. Performed By: #### T SH3 wRFLX, LIPID #### [address] Magnesium [Mass/volume] in S elliot or PlasmaOrdered By: Wesley Villafuerte on 04-28-2024 Magnesium [Mass/Vol] Magnesium [Mass/vol ume] in Serum or Plasma Low 1.9-2.7 [facility] Monocyte distribution width [Entitic volume] in Blood by AutomatedOrdered By: Wesley Villafuerte on 04-28-2024 Monocyte distribution width Auto (Bld) [Entitic vol] Monocyte distribution width [Entitic volume] in Blood by Automated High 0.00-20.00 [facility] Comment on above: For adults in ED, MD W > 20.0 may be associated with a higher risk of sepsis during the first 12 hrs of hospital admission Monocytes Auto (Bld) [#/Vol] Ordered By: Wesley Villafuerte on 04-28-2024 Monocytes (Bld) [#/Vol] Automated blood monocyte count 0.0-0.8 [facility] Monocytes/100 WBC Auto (Bld) Ordered By: Wesley Villafuerte on 04-28-2024 Monocytes/100 WBC (Bld) Automated monocyte % . [facility] Natriuretic peptide B [Mass/ Vol]Ordered By: Weslye Villafuerte on 04-28-2024 Natriuretic peptide B (Bld) [Mass/Vol] BNP ser/plas 5-100 [facility] Neutrophils Auto (Bld) [#/Vo l]Ordered By: Wesley Villafuerte on 04-28-2024 Neutrophils (Bld) [#/Vol] Neutrophils [#/volume] in Blood by Automated count 1.8-7.7 [facility] Neutrophils/100 WBC Auto (Bl d)Ordered By: Wesley Villafuerte on 04-28-2024 Neutrophils/100 WBC (Bld) Automated neutrophil % . [facility] Nitrite Test strip Ql (U)Ord ered By: Wesley Villauferte on 04-28-2024 Nitrite Ql (U) Nitrite [Presence] i n Urine by Test strip Negative [facility] No Panel InformationOrdered By: Wesley Villafuerte on 04-28-2024 Estimated GFR (CKD-EPI) > 60.0 mL/Min [facility] Creatinine Clearance (Chem 77.21 [facility] No Panel Informationon 04-28 Bedside Glucose 211 [facility] Nucleated erythrocytes [Pres ence] in Blood by Automated countOrdered By: Wesley Villafuerte on 04-28-2024 Nucleated RBC Auto Ql (Bld) Nucleated erythrocytes [Presence] in Blood by Automated count 0-0.5 [facility] Partial Thromboplastin Timeo n 04-28-2024 aPTT Coag (Bld) [Time] 30.0 s Normal 25.1-36.5 [facility] Comment on above: Result Comment: A he matocrit value greater than 55% may lead to inaccurate results in coagulation testing. Patients having hematocrit values >55% require a special collection tube for coagulation studies. Please contact the laboratory at [phone] for redraw instructions. PERFORMED BY: [facility] [address] [place] [address] PATHOLOGIST SWING GRINDER LE MACE M.D. Performed By: #### C MP, MG, PHOS, CBC #### [address] Platelet adequacy [Presence] in Blood by Light microscopyOrdered By: Wesley Villafuerte on 04-28-2024 Platelets LM Ql (Bld) Platelet adequacy [Presence] in Blood by Light microscopy Normal [facility] Platelet mean volume Auto (B ld) [Entitic vol]Ordered By: Wesley Villafuerte on 04-28-2024 Platelet mean volume (Bld) [Entitic vol] Platelet mean volume [Entitic volume] in Blood by Automated count 6.3-10.7 [facility] Platelet morphology finding [Identifier] in BloodOrdered By: Wesley Villafuerte on 04-28-2024 Platelet morphology finding Nom (Bld) Platelet morphology finding [Identifier] in Blood Normal [facility] Platelets Auto (Bld) [#/Vol] Ordered By: Wesley Villafuerte on 04-28-2024 Platelets (Bld) [#/Vol] Platelets [#/vol ume] in Blood by Automated count Low 150-450 [facility] Polychromasia [Presence] in Blood by Light microscopyOrdered By: Wesley Villafuerte on 04-28-2024 Polychromasia LM Ql (Bld) Polychromasia [Presence] in Blood by Light microscopy [facility] Potassium [Moles/volume] in Serum or PlasmaOrdered By: Wesley Villafuerte on 04-28-2024 Potassium [Moles/Vol] Potassium [Moles/v olume] in Serum or Plasma 3.5-5.1 [facility] Comment on above: Hemolysis is present at a level that could interfere with the result.Contact lab if redraw is required Protein Test strip (U) [Mass /Vol]Ordered By: Wesley Villafuerte on 04-28-2024 Protein (U) [Mass/Vol] Protein [Mass/vol ume] in Urine by Test strip Negative [facility] Protein [Mass/volume] in Ser um or PlasmaOrdered By: Wesley Villafuerte on 04-28-2024 Protein [Mass/Vol] Protein [Mass/volume ] in Serum or Plasma 6.4-8.9 [facility] Prothrombin Time INRon 04-28 INR Coag (PPP) [Relative time] 1.3 {INR} Normal [facility] Comment on above: Result [...] valves: 3 - 4.5 Performed By: #### T SH3 wRFLX, LIPID #### [facility] [address] PT Coag (PPP) [Time] 15.1 s High 9.0-12.9 [facility] Comment on above: Result Comment: A he matocrit value greater than 55% may lead to inaccurate results in coagulation testing. Patients having hematocrit values >55% require a special collection tube for coagulation studies. Please contact the laboratory at [phone] for redraw instructions. Performed By: #### T SH3 wRFLX, LIPID #### [facility] [address] [place] [id number] [facility] Prothrombin time (PT)Ordered By: Wesley Villafuerte on 04-28-2024 PT Coag (PPP) [Time] Prothrombin time (PT) High 9.0- 12.9 [facility] Comment on above: A hematocrit value g reater than 55% may lead to inaccurate results in coagulation testing. Patients having hematocrit values >55% require a special collection tube for coagulation studies. Please contact the laboratory at [phone] for redraw instructions. RBC Auto (Bld) [#/Vol]Ordere d By: Wesley Villafuerte on 04-28-2024 RBC (Bld) [#/Vol] Erythrocytes [#/volu me] in Blood by Automated count High 3.60-5.00 [facility] Respiratory (Upper) Panel, P CRon 04-28-2024 [...] A H3 Blank Space ------ PERFORMED BY: [place] [address] PATHOLOGIST SWING GRINDER LE MACE M.D. Normal [facility] Comment on above: Performed By: #### L IPID, BMP #### [facility] [address] Respiratory pathogens DNA an d RNA panel - Nasopharynx by TEJINDER with non-probe detectionOrdered By: Wesley Villafuerte on 04-28-2024 Respiratory pathogens DNA and RNA panel TEJINDER+non-probe (Nph) Respiratory pathogens DNA and RNA panel - Nasopharynx by TEJINDER with non-probe detection [facility] Respiratory pathogens DNA and RNA panel TEJINDER+non-probe (Nph) Respiratory pathogens DNA and RNA panel - Nasopharynx by TEJINDER with non-probe detection [facility] Scan and CBCon 12-31-2024 Anisocytosis Ql (Bld) Slight Normal [facility] Comment on above: Performed By: #### C MP, MG, PHOS, CBC #### [address] Basophils (Bld) [#/Vol] 0.1 10*3/uL Normal 0.0-0.2 [facility] Comment on above: Performed By: #### C MP, MG, PHOS, CBC #### [address] Basophils/100 WBC (Bld) 1.1 % Normal . T [facility] Comment on above: Performed By: #### C MP, MG, PHOS, CBC #### [address] Eosinophils (Bld) [#/Vol] 0.3 10*3/uL Normal 0.0-0.45 [facility] Comment on above: Performed By: #### C MP, MG, PHOS, CBC #### [address] Eosinophils/100 WBC (Bld) 2.7 % Normal . [facility] Comment on above: Performed By: #### C MP, MG, PHOS, CBC #### [address] Erythrocyte distribution width (RBC) [Ratio] 15.4 % High 11.9-15.3 [facility] Comment on above: Performed By: #### C MP, MG, PHOS, CBC #### [address] Hematocrit (Bld) [Volume fraction] 48.1 % High 34.0-46.4 [facility] Comment on above: Performed By: #### C MP, MG, PHOS, CBC #### [address] Hemoglobin (Bld) [Mass/Vol] 16.0 g/dL High 11.8-15.4 [facility] Comment on above: Performed By: #### C MP, MG, PHOS, CBC #### [address] Lymphocytes (Bld) [#/Vol] 2.5 10*3/uL Normal 1.00-4.8 [facility] Comment on above: Performed By: #### C MP, MG, PHOS, CBC #### [address] Lymphocytes/100 WBC (Bld) 24.6 % Normal . [facility] Comment on above: Performed By: #### C MP, MG, PHOS, CBC #### [address] MCH (RBC) [Entitic mass] 31.7 pg Normal 24.7-34.3 [facility] Comment on above: Performed By: #### C MP, MG, PHOS, CBC #### [address] MCV (RBC) [Entitic vol] 95.1 fL Normal 80-100 [facility] Comment on above: Performed By: #### C MP, MG, PHOS, CBC #### [address] Mean Corpuscular HGB Conc 33.3 g/dL Normal 32.0-35.0 [facility] Comment on above: Performed By: #### C MP, MG, PHOS, CBC #### [address] Monocytes (Bld) [#/Vol] 0.8 10*3/uL Normal 0.0-0.8 [facility] Comment on above: Performed By: #### C MP, MG, PHOS, CBC #### [address] Monocytes/100 WBC (Bld) 20.25 % High 0.00-20.00 [facility] Comment on above: Result Comment: For adults in ED, MDW > 20.0 may be associated with a higher risk of sepsis during the first 12 hrs of hospital admission Performed By: #### C MP, MG, PHOS, CBC #### [address] Monocytes/100 WBC (Bld) 7.6 % Normal . [facility] Comment on above: Performed By: #### C MP, MG, PHOS, CBC #### [address] Neutrophils (Bld) [#/Vol] 6.5 10*3/uL Normal 1.8-7.7 [facility] Comment on above: Performed By: #### C MP, MG, PHOS, CBC #### [address] Neutrophils/100 WBC (Bld) 64.0 % Normal . [facility] Comment on above: Performed By: #### C MP, MG, PHOS, CBC #### [address] NRBC% 0.2 /100{WBC} Normal 0-0.5 [facility] Comment on above: Performed By: #### C MP, MG, PHOS, CBC #### [address] Platelet Estimate Decreased Normal Normal [facility] Comment on above: Performed By: #### C MP, MG, PHOS, CBC #### [address] Platelet mean volume (Bld) [Entitic vol] 9.9 fL Normal 6.3-10.7 [facility] Comment on above: Performed By: #### C MP, MG, PHOS, CBC #### [address] Platelet Morphology Normal Normal Normal [facility] Comment on above: Result Comment: PERF ORMED BY: [place] [address] PATHOLOGIST SWING GRINDER LE MACE M.D. Performed By: #### C MP, MG, PHOS, CBC #### [place] [address] [place] Platelets (Bld) [#/Vol] 136 10*3/uL Low 150-450 [facility] Comment on above: Performed By: #### C MP, MG, PHOS, CBC #### [address] Polychromasia Slight Normal [facility] Comment on above: Performed By: #### C MP, MG, PHOS, CBC #### [address] RBC (Bld) [#/Vol] 5.06 10*6/uL High 3.60-5.00 [facility] Comment on above: Performed By: #### C MP, MG, PHOS, CBC #### [address] WBC (Bld) [#/Vol] 10.2 10*3/uL Normal 3.8-11.6 [facility] Comment on above: Performed By: #### C MP, MG, PHOS, CBC #### [address] WBC (Bld) [#/Vol] 10.9 10*3/uL Normal 3.8-11.6 [facility] Comment on above: Performed By: #### C MP, MG, PHOS, CBC #### [address] Serum or plasma albumin/glob ulin mass ratioOrdered By: Wesley Villafuerte on 04-28-2024 Albumin/Globulin [Mass ratio] Serum or plasma albumin/globulin mass ratio [facility] Serum or plasma anion gap de terminationOrdered By: Wesley Villafuerte on 04-28-2024 Anion gap [Moles/Vol] Serum or plasma an ion gap determination 6.0-15.0 [facility] Sodium [Moles/volume] in Ser um or PlasmaOrdered By: Wesley Villafuerte on 04-28-2024 Sodium [Moles/Vol] Sodium [Moles/volume ] in Serum or Plasma 136-145 [facility] Specific gravity Test strip (U) [Rel density]Ordered By: Wesley Villafuerte on 04-28-2024 Specific gravity (U) [Rel density] Specific gravity of Urine by Test strip High 1.001-1.03 0 [facility] Troponin I High Sensitivityo n 04-28-2024 Troponin I High Sensitivity 5.1 pg/mL Normal 0.0-15.0 [facility] Comment on above: Result Comment: PERF ORMED BY: [place] [address] PATHOLOGIST SWING GRINDER LE MACE M.D. Performed By: #### T SH3 wRFLX, LIPID #### [address] Troponin I.cardiac [Mass/vol ume] in Serum or Plasma by Detection limit <= 0.01 ng/Ordered By: Wesley Villafuerte on 04-28-2024 Troponin I.cardiac DL <= 0.01 ng/mL [Mass/Vol] Troponin I.cardiac [Mass/volume] in Serum or Plasma by Detection limit <= 0.01 ng/ 0.0-15.0 [facility] Urea nitrogen [Mass/volume] in Serum or PlasmaOrdered By: Wesley Villafuerte on 04-28-2024 Urea nitrogen [Mass/Vol] Urea nitrogen [Mass/volume] in Serum or Plasma 725 [facility] Urobilinogen Test strip (U) [Mass/Vol]Ordered By: Wesley Villafuerte on 04-28-2024 Urobilinogen (U) [Mass/Vol] Urobilinogen [Mass/volume] in Urine by Test strip Normal [facility] WBC Auto (Bld) [#/Vol]Ordere d By: Wesley Villafuerte on 04-28-2024 WBC (Bld) [#/Vol] Leukocytes [#/volume ] in Blood by Automated count 3.8-11.6 [facility] X-ray reportOrdered By: Oz Bowling on 04-28-2024 Study report [facility] [place] [address] [place], [place] [id number] XRay Report Signed Patient: Taye Gay MR#: [id number] : 1955 Acct:[id number] Age/Sex: 68 / F ADM Date: 4 Loc: ER Room: Type: [facility] ER Attending Dr: Copies to: Wesley Villafuerte [...] Oz Bowling M.D.04/28/2024 9:46 PM Dictation Location: [place] [address] Transcribed By: [facility] 04/28/242145 Dictated By: Oz Bowling II, MD 04/28/242143 Signed By: 04/28/242145 [facility] Work Phone: XR chest 2V*on 04-28-2024 XR chest 2V* [facility] [place] [address] [place] [address] XRay Report Signed Patient: Taye Gay MR#: [id number] 19 : 1955 Acct:[id number] Age/Sex: 68 / F ADM Date: 04/28/24 Loc: ER Room: Type: [facility] ER Attending Dr: Copies to: Wesley Villafuerte [...] Oz Bowling M.D.04/28/2024 9:46 PM Dictation Location: [place] [address] Transcribed By: [facility] 04/28/242145 Dictated By: Oz Bowling II, MD 04/28/242143 Signed By: 04/28/242145 Normal [facility] Yeast.budding [Presence] in Urine by Computer assisted methodOrdered By: Wesley Villafuerte on 04-28-2024 Yeast.budding Computer assisted Ql (U) Yeast.budding [Presence] in Urine by Computer assisted method High None Seen [facility] aPTT in Platelet poor plasma by Coagulation assayOrdered By: Wesley Villafuerte on 04-28-2024 aPTT Coag (PPP) [Time] Activated partial thromboplastin time (aPTT) in platelet poor plasma by coagulation a 25.1-36.5 [facility] Comment on above: A hematocrit value g reater than 55% may lead to inaccurate results in coagulation testing. Patients having hematocrit values >55% require a special collection tube for coagulation studies. Please contact the laboratory at [phone] for redraw instructions. pH Test strip (U)Ordered By: Wesley Villafuerte on 04-28-2024 pH (U) pH of Urine by Test strip 5.0-9.0 [facility] ECG 12 lead ECGon 04-27-2024 ECG 12 lead ECG [facility] [place] [address] Electrocardiograph Report Signed Patient: Taye Gay MR#: [id number] 19 : 1955 Acct:[id number] Age/Sex: 68 / F ADM Date: 04/27/24 Loc: ER Room: Type: [facility] ER Attending Dr: Ordering Provider: Rl Villavicencio [...] By: MUS Signed By Rl Villavicencio DO 218 Normal [facility] Alanine aminotransferase [En zymatic activity/volume] in Serum or PlasmaOrdered By: Nataliya Jane on 04-14-2024 ALT [Catalytic activity/Vol] Alanine aminotransferase [Enzymatic activity/volume] in Serum or Plasma 52 [facility] Albumin [Mass/volume] in Ser um or Plasma by Bromocresol green (BCG) dye binding methoOrdered By: Nataliya Jane on 04-14-2024 Albumin BCG dye [Mass/Vol] Albumin [Mass/volume] in Serum or Plasma by Bromocresol green (BCG) dye binding metho 3.5-5.7 [facility] Alkaline phosphatase [Enzyma tic activity/volume] in Serum or PlasmaOrdered By: Nataliya Jane on 04-14-2024 ALP [Catalytic activity/Vol] Alkaline phosphatase [Enzymatic activity/volume] in Serum or Plasma 34-104 [facility] Aspartate aminotransferase [ Enzymatic activity/volume] in Serum or PlasmaOrdered By: Nataliya Jane on 04-14-2024 AST [Catalytic activity/Vol] Aspartate aminotransferase [Enzymatic activity/volume] in Serum or Plasma 13-39 [facility] Bilirubin.total [Mass/volume ] in Serum or PlasmaOrdered By: Nataliya Jane on 04-14-2024 Bilirubin [Mass/Vol] Bilirubin.total [Mass/volume] in Serum or Plasma 0.3-1.0 [facility] CBC W Auto Differential pane l (Bld)on 04-14-2024 Basophils (Bld) [#/Vol] 0.1 10*3/uL 0.0 - 0.2 10*3/uL [facility] Basophils/100 WBC Manual cnt (Syn fld) 0.6 % . [facility] Eosinophils (Bld) [#/Vol] 0.3 10*3/uL 0.0 - 0.45 10*3/uL [facility] Eosinophils/100 WBC Manual cnt (Syn fld) 2.6 % . [facility] Erythrocyte distribution width (RBC) [Ratio] 15 % 11.9 - 15.3 % [facility] Hematocrit (Bld) [Volume fraction] 49.7 % High 34.0 - 46.4 % [facility] Hemoglobin (Bld) [Mass/Vol] 16.6 g/dL High 11.8 - 15.4 g/dL [facility] Interpretation and review of laboratory results Abnormal [facility] Lymphocytes (Bld) [#/Vol] 2.1 10*3/uL 1.00 - 4.8 10*3/uL [facility] Lymphocytes/100 WBC Manual cnt (Syn fld) 19.3 % . [facility] MCH (RBC) [Entitic mass] 31.2 pg 24.7 - 34.3 pg [facility] MCHC (RBC) [Mass/Vol] 33.4 g/dL 32.0 - 35.0 g/dL [facility] MCV (RBC) [Entitic vol] 93.4 fL 80 - 100 fL [facility] Monocytes (Bld) [#/Vol] 0.9 10*3/uL High 0.0 - 0.8 10*3/uL [facility] Monocytes+Macrophages/1 00 WBC Manual cnt (Syn fld) 8.7 % . [facility] Neutrophils (Bld) [#/Vol] 7.3 10*3/uL 1.8 - 7.7 10*3/uL [facility] Neutrophils/100 WBC Manual cnt (Syn fld) 68.8 % . [facility] NRBC 0.1 /100{WBC} 0 - 0.5 /100{WBC} [facility] Platelet mean volume (Bld) [Entitic vol] 8.9 fL 6.3 - 10.7 fL [facility] Platelets (Bld) [#/Vol] 167 10*3/uL 150 - 450 10*3/uL [facility] RBC LM.HPF (Urine sed) [#/Area] 5.32 10*6/uL High 3.60 - 5.00 10*6/uL [facility] WBC (Bld) [#/Vol] 10.7 10*3/uL 3.8 - 11.6 10*3/uL [facility] WBC LM.HPF (Urine sed) [#/Area] 10.7 10*3/uL 3.8 - 11.6 10*3/uL [facility] Calcium [Mass/volume] in Ser um or PlasmaOrdered By: [facility] Lucinda on 04-14-2024 Calcium [Mass/Vol] Calcium [Mass/volume ] in Serum or Plasma 8.6-10.3 [facility] Carbon dioxide, total [Moles /volume] in Serum or PlasmaOrdered By: Nataliya Lucinda on 04-14-2024 CO2 [Moles/Vol] Carbon dioxide, tota l [Moles/volume] in Serum or Plasma 21.0-31.0 [facility] Chloride [Moles/volume] in S elliot or PlasmaOrdered By: Nataliya Lucinda on 04-14-2024 Chloride [Moles/Vol] Chloride [Moles/vol ume] in Serum or Plasma 98-107 [facility] Complete Blood Count Auto Di ffon 04-14-2024 Basophils (Bld) [#/Vol] 0.1 10*3/uL Normal 0.0-0.2 [facility] Comment on above: Result Comment: PERF ORMED BY: [facility] [address] [place] [address] PATHOLOGIST SWING GRINDER LE MACE M.D. Performed By: #### C MP, LDH, PATH SLIDE REV, CBC #### [facility] [address] [place] [address] [place] Basophils/100 WBC (Bld) 0.6 % Normal . [facility] Comment on above: Performed By: #### C MP, LDH, PATH SLIDE REV, CBC #### [facility] [address] [place] [id number] [place] Eosinophils (Bld) [#/Vol] 0.3 10*3/uL Normal 0.0-0.45 [facility] Comment on above: Performed By: #### C MP, LDH, PATH SLIDE REV, CBC #### [address] Eosinophils/100 WBC (Bld) 2.6 % Normal . [facility] Comment on above: Performed By: #### C MP, LDH, PATH SLIDE REV, CBC #### [address] Erythrocyte distribution width (RBC) [Ratio] 15.0 % Normal 11.9-15.3 [facility] Comment on above: Performed By: #### C MP, LDH, PATH SLIDE REV, CBC #### [address] Hematocrit (Bld) [Volume fraction] 49.7 % High 34.0-46.4 [facility] Comment on above: Performed By: #### C MP, LDH, PATH SLIDE REV, CBC #### [address] Hemoglobin (Bld) [Mass/Vol] 16.6 g/dL High 11.8-15.4 [facility] Comment on above: Performed By: #### C MP, LDH, PATH SLIDE REV, CBC #### [address] Lymphocytes (Bld) [#/Vol] 2.1 10*3/uL Normal 1.00-4.8 [facility] Comment on above: Performed By: #### C MP, LDH, PATH SLIDE REV, CBC #### [address] Lymphocytes/100 WBC (Bld) 19.3 % Normal . [facility] Comment on above: Performed By: #### C MP, LDH, PATH SLIDE REV, CBC #### [address] MCH (RBC) [Entitic mass] 31.2 pg Normal 24.7-34.3 [facility] Comment on above: Performed By: #### C MP, LDH, PATH SLIDE REV, CBC #### [address] MCV (RBC) [Entitic vol] 93.4 fL Normal 80-100 [facility] Comment on above: Performed By: #### C MP, LDH, PATH SLIDE REV, CBC #### [address] Mean Corpuscular HGB Conc 33.4 g/dL Normal 32.0-35.0 [facility] Comment on above: Performed By: #### C MP, LDH, PATH SLIDE REV, CBC #### [address] Monocytes (Bld) [#/Vol] 0.9 10*3/uL High 0.0-0.8 [facility] Comment on above: Performed By: #### C MP, LDH, PATH SLIDE REV, CBC #### [address] Monocytes/100 WBC (Bld) 8.7 % Normal . [facility] Comment on above: Performed By: #### C MP, LDH, PATH SLIDE REV, CBC #### [address] Neutrophils (Bld) [#/Vol] 7.3 10*3/uL Normal 1.8-7.7 [facility] Comment on above: Performed By: #### C MP, LDH, PATH SLIDE REV, CBC #### [address] Neutrophils/100 WBC (Bld) 68.8 % Normal . [facility] Comment on above: Performed By: #### C MP, LDH, PATH SLIDE REV, CBC #### [address] NRBC% 0.1 /100{WBC} Normal 0-0.5 [facility] Comment on above: Performed By: #### C MP, LDH, PATH SLIDE REV, CBC #### [address] Platelet mean volume (Bld) [Entitic vol] 8.9 fL Normal 6.3-10.7 [facility] Comment on above: Performed By: #### C MP, LDH, PATH SLIDE REV, CBC #### [address] Platelets (Bld) [#/Vol] 167 10*3/uL Normal 150-450 [facility] Comment on above: Performed By: #### C MP, LDH, PATH SLIDE REV, CBC #### [address] RBC (Bld) [#/Vol] 5.32 10*6/uL High 3.60-5.00 [facility] Comment on above: Performed By: #### C MP, LDH, PATH SLIDE REV, CBC #### [address] WBC (Bld) [#/Vol] 10.7 10*3/uL Normal 3.8-11.6 [facility] Comment on above: Performed By: #### C MP, LDH, PATH SLIDE REV, CBC #### [address] Comprehensive Metabolic Pane juan 04-14-2024 Albumin [Mass/Vol] 4.1 g/dL Normal 3.5-5.7 [facility] Comment on above: Performed By: #### L IPID, BMP #### [address] Albumin/Globulin [Mass ratio] 1.2 {ratio} Normal [facility] Comment on above: Performed By: #### L IPID, BMP #### [address] ALP [Catalytic activity/Vol] 92 U/L Normal 34-104 [facility] Comment on above: Performed By: #### L IPID, BMP #### [address] ALT [Catalytic activity/Vol] 20 U/L Normal 7-52 [facility] Comment on above: Performed By: #### L IPID, BMP #### [facility] [address] Anion gap [Moles/Vol] 16.1 mmol/L High 6.0-15.0 [facility] Comment on above: Performed By: #### L IPID, BMP #### [facility] [address] [place] [address] [place] AST [Catalytic activity/Vol] 26 U/L Normal 13-39 [facility] Comment on above: Performed By: #### L IPID, BMP #### [facility] [address] [place] [address] [place] Bilirubin [Mass/Vol] 0.6 mg/dL Normal 0.3-1.0 [facility] Comment on above: Performed By: #### L IPID, BMP #### [facility] [address] [place] [address] [place] Calcium [Mass/Vol] 10.0 mg/dL Normal 8.6-10.3 [facility] Comment on above: Performed By: #### L IPID, BMP #### [facility] [address] [place] [address] [place] Chloride [Moles/Vol] 101 mmol/L Normal 98-107 [facility] Comment on above: Performed By: #### L IPID, BMP #### [facility] [address] [place] [address] [place] CO2 [Moles/Vol] 26.9 mmol/L Normal 21.0-31.0 [facility] Comment on above: Performed By: #### L IPID, BMP #### [facility] [address] [place] [address] [place] Creatinine [Mass/Vol] 0.83 mg/dL Normal 0.60-1.20 [facility] Comment on above: Performed By: #### L IPID, BMP #### [facility] [address] [place] [address] [place] Creatinine Clr Calc Pharmacy 78.05 Normal [facility] Comment on above: Performed By: #### L IPID, BMP #### [place] [address] [place] GFR/1.73 sq M.predicted MDRD (S/P/Bld) [Vol rate/Area] mL/min/{1.73_m2} Normal [facility] Comment on above: Performed By: #### L IPID, BMP #### [address] Globulin (S) [Mass/Vol] 3.3 g/dL Normal [facility] Comment on above: Performed By: #### L IPID, BMP #### [address] Glucose [Mass/Vol] 169 mg/dL High 70-100 [facility] Comment on above: Result Comment: [place] Glucose Reference Range is dependent on time and content of last meal. Glucose of more than 200 mg/dL in a nonstressed, ambulatory subject supports the diagnosis of Diabetes Mellitus. ADA recommended reference range Performed By: #### L IPID, BMP #### [address] Potassium [Moles/Vol] 4.0 mmol/L Normal 3.5-5.1 [facility] Comment on above: Performed By: #### L IPID, BMP #### [address] Protein [Mass/Vol] 7.4 g/dL Normal 6.4-8.9 [facility] Comment on above: Performed By: #### L IPID, BMP #### [address] Sodium [Moles/Vol] 140 mmol/L Normal 136-145 [facility] Comment on above: Performed By: #### L IPID, BMP #### [address] Urea nitrogen [Mass/Vol] 8 mg/dL Normal 7-25 [facility] Comment on above: Performed By: #### L IPID, BMP #### [address] Comprehensive metabolic pane juan 12-17-2024 Albumin [Mass/Vol] 4.1 g/dL 3.5 - 5.7 g/dL [facility] Albumin/Globulin [Mass ratio] 1.2 {ratio} [facility] ALP [Catalytic activity/Vol] 92 U/L 34 - 104 U/L [facility] ALT [Catalytic activity/Vol] 20 U/L 7 - 52 U/L [facility] Anion gap [Moles/Vol] 16.1 mmol/L High 6.0 - 15.0 meq/L [facility] AST [Catalytic activity/Vol] 26 U/L 13 - 39 U/L [facility] Bilirubin [Mass/Vol] 0.6 mg/dL 0.3 - 1 .0 mg/dL [facility] Calcium [Mass/Vol] 10 mg/dL 8.6 - 10. 3 mg/dL [facility] Chloride [Moles/Vol] 101 mmol/L 98 - 10 7 mmol/L [facility] CO2 [Moles/Vol] 26.9 mmol/L 21.0 - 31.0 mmol/L [facility] Creatinine (U) [Mass/Vol] 0.83 mg/dL 0.60 - 1.20 mg/dL [facility] CREATININE CLR CALC PHARMACY 78.05 [facility] ESTIMATED GFR mL/Min [facility] Globulin (S) [Mass/Vol] 3.3 g/dL [facility] Glucose [Mass/Vol] 169 mg/dL High 70 - 100 mg/dL [facility] Comment on above: Random Glucose Refer ence Range is dependent on time and content of last meal. Glucose of more than 200 mg/dL in a nonstressed, ambulatory subject supports the diagnosis of Diabetes Mellitus. ADA recommended reference range Interpretation and review of laboratory results Abnormal [facility] Potassium [Moles/Vol] 4 mmol/L 3.5 - 5.1 mmol/L [facility] Protein [Mass/Vol] 7.4 g/dL 6.4 - 8.9 g/dL [facility] Sodium [Moles/Vol] 140 mmol/L 136 - 145 mmol/L [facility] Urea nitrogen [Mass/Vol] 8 mg/dL 7 - 25 mg/dL [facility] Creatinine [Mass/volume] in Serum or PlasmaOrdered By: Nataliya Jane on 04-14-2024 Creatinine [Mass/Vol] Creatinine [Mass/v olume] in Serum or Plasma 0.60-1.20 [facility] Globulin Calc (S) [Mass/Vol] Ordered By: Nataliya Jane on 04-14-2024 Globulin (S) [Mass/Vol] Serum globulin measurement by calculation (mass/volume) [facility] Glucose [Mass/volume] in Ser um or PlasmaOrdered By: Nataliya Jane on 04-14-2024 Glucose [Mass/Vol] Glucose [Mass/volume ] in Serum or Plasma High 70-100 [facility] Comment on above: ADA recommended refe rence rangeRandom Glucose Reference Range is dependent on time and content of last meal. Glucose of more than 200 mg/dL in a nonstressed, ambulatory subject supports the diagnosis of Diabetes Mellitus. Juan 04-14-2024 L ---- Specimen: [id number] Received: 04/14/24 Status: FIDEL Knox Num: [id number] Spec Type: Impression Subm Dr: Nataliya Jane APRN Tissues: PATHPER Procedures: PATHREVIEW Age/ Patient Sex Location Account Attending Physician Taye Gay Vamsi 68/F XT [id number] Nataliya Jane APRN SPEC NUM: [id number] RECD: 04/14/24 STATUS: FIDEL RE NUM: [id number] RONNY: 04/14/24- DR: Nataliya Jane APRN ENTERED: 04/14/[address]: SPEC TYPE: Impression DEPT: IN ENTERED BY: [id number] RECV BY: [id number] ORDERED: PATHREVIEW ORDERED: PATHREVIEW Pathologist Review Abnormal [...] chronic smoking. Clinical correlations are suggested CPT: 29926 Specimen: [id number] Received: 04/14/24 Status: SOUT Req Num: [id number] Spec Type: Impression Subm Dr: Nataliya Jane APRN Tissues: PATHPER Procedures: PATHREVIEW Patient: Taye Gay [id number] (Continued) Specimen: [id number] Received: 04/14/24 (Continued) Signed (signature on file) Nereyda Holt MD 04/15/24 0920 Specimen: [id number] Received: 04/14/24 Status: FIDEL [place] Num: [id number] Spec Type: Impression Subm Dr: Nataliya Jane APRN Tissues: PATHPER Procedures: PATHREVIEW Patient: Taye Gay [id number] (Continued) Specimen: [id number] Received: 04/14/24-1147 (Continued) CBC [...] % Lymp % (Auto) 19.3 . % [place] % (Auto) 8.7 . % Eos % (Auto) 2.6 . % Baso % (Auto) 0.6 . % NRBC% 0.1 0-0.5 /100 WBC Neut # (Auto) 7.3 1.8-7.7 x10E3/uL Lymph # (Auto) 2.1 1.00-4.8 x10E3/uL [place] # (Auto) 0.9 H 0.0-0.8 x10E3/uL Eos # (Auto) 0.3 0.0-0.45 x10E3/uL Baso# (Auto) 0.1 0.0-0.2 x10E3/uL Specimen: [id number] Received: 04/14/24 Status: FIDEL Lisette Num: [id number] Spec Type: Impression Subm Dr: Nataliya Jane APRN Tissues: PATHPER Procedures: PATHREVIEW Patient: Taye Gay [id number] (Continued) Signed (signature on file) Tyrone-Fer Holt MD 04/15/24 8586 Normal [facility] LDH Lactate Dehydrogenaseon 04-14-2024 LDH Lactate Dehydrogenase 155 U/L Normal 140-271 [facility] Comment on above: Result Comment: PERF ORMED BY: [facility] [place] [place] [address] PATHOLOGIST SWING GRINDER LE MACE M.D. Performed By: #### L IPID, BMP #### [address] [facility] LDH Lactate to pyruvate reac tion [Catalytic activity/Vol]on 04-14-2024 LDH LACTATE DEHYDROGENASE 155 U/L 140 - 271 U/L [facility] Lactate dehydrogenase [Enzym atic activity/volume] in Serum or Plasma by Lactate to pyOrdered By: Nataliya Jane on 04-14-2024 LDH Lactate to pyruvate reaction [Catalytic activity/Vol] Lactate dehydrogenase [Enzymatic activity/volume] in Serum or Plasma by Lactate to py 140-271 [facility] No Panel Informationon 04-14 [facility] No Panel InformationOrdered By: Nataliya Jane on 04-14-2024 Estimated GFR (CKD-EPI) > 60.0 mL/Min [facility] Creatinine Clearance (Chem 78.05 [facility] Slides for Pathologist Review Ordered path review [facility] PATHOLOGIST SLIDE REVIEW ([facility])on 04-14-2024 PATHOLOGIST SLIDE REVIEW Ordered Path Review [facility] Pathologist Slide Reviewon 1 06-15-2023 Pathologist Slide Review Ordered Path Review Normal [facility] Comment on above: Result Comment: PERF ORMED BY: [place] [id number] PATHOLOGIST SWING GRINDER LE MACE M.D. Performed By: #### L IPID, BMP #### [facility] [address] [place], [place] [id number] [facility] Potassium [Moles/volume] in Serum or PlasmaOrdered By: Nataliya Jane on 04-14-2024 Potassium [Moles/Vol] Potassium [Moles/v olume] in Serum or Plasma 3.5-5.1 [facility] Protein [Mass/volume] in Ser um or PlasmaOrdered By: Nataliya Jane on 04-14-2024 Protein [Mass/Vol] Protein [Mass/volume ] in Serum or Plasma 6.4-8.9 [facility] Serum or plasma albumin/glob ulin mass ratioOrdered By: Nataliya Jane on 04-14-2024 Albumin/Globulin [Mass ratio] Serum or plasma albumin/globulin mass ratio [facility] Serum or plasma anion gap de terminationOrdered By: Nataliya Jane on 04-14-2024 Anion gap [Moles/Vol] Serum or plasma an ion gap determination High 6.0-15.0 [facility] Sodium [Moles/volume] in Ser um or PlasmaOrdered By: Nataliya Gaonaoren on 04-14-2024 Sodium [Moles/Vol] Sodium [Moles/volume ] in Serum or Plasma 136-145 [facility] Urea nitrogen [Mass/volume] in Serum or PlasmaOrdered By: Nataliya Gaonaoren on 04-14-2024 Urea nitrogen [Mass/Vol] Urea nitrogen [Mass/volume] in Serum or Plasma 7-25 [facility] ECG 12 Leadon 03-25-2024 Normal sinus rhythm [facility] Work Phone: [facility] Work Phone: Aerobic cultureOrdered By: Vamsi Fritz on 01-07-2024 Bacteria identified Aer cx Nom (Unsp spec) [facility] Superficial Wound Cultureon 01-07-2024 Superficial Wound Culture Plantar right foot Result Tab Codes Light Normal Skin Erna 2 Days PERFORMED BY: [place] [address] PATHOLOGIST SWING GRINDER SADAF STANTON M.D. Normal [facility] Comment on above: Performed By: #### C MP, MG, PHOS, CBC #### [address] US venous duplex LE BIon US venous duplex LE BI [facility] [place] [address] Ultrasound Report Signed Patient: Taye Gay MR#: [id number] 19 : 1955 Acct:[id number] Age/Sex: 68 / F ADM Date: 01/06/24 Loc: Room: Type: [facility] Attending Dr: Thuan Wise MD Ordering Provider: [...] Tray Nava MD01/07/2024 9:46 AM Dictation Location: [place] [address] Tech: Carmen Motley Transcribed By: [facility] 01/07/24945 Dictated By: Tray Nava MD 01/07/24945 Signed By: 01/07/24945 Normal [facility] ECG 12 Leadon 12-16-2023 [facility] Work Phone: Normal sinus rhythm [facility] Work Phone: ANAon 12-07-2023 ANTINUCLEAR ABS, IFA Positive Critically abnormal . [facility] Comment on above: Negative <1:80 Borderline 1:80 Positive >1:80 Interpretation and review of laboratory results Abnormal [facility] NOTE 1 Comment . [facility] Comment on above: Pattern Potential Di sease Association Homogeneous Systemic Lupus Erythematosus, Drug Induced Systemic Lupus Erythematosus, Chronic Autoimmune hepatitis, Juvenile Idiopathic Arthritis Speckled Sjogren Syndrome, Systemic Lupus Erythematosus, Subacute Cutaneous Lupus, Lupus, Congenital Heart Block, Mixed Connective Tissue Disease, Scleroderma-diffuse, Scleroderma-Autoimmune Myositis Overlap Syndrome, Systemic Lupus Ajkpfvtqqxpks-Paaxsnvydek-Xaptkampxb Myositis Overlap Syndrome, Systemic Autoimmune Rheumatic Disease, [...] Cytopenias, Linear Scleroderma, Antiphospholipid Syndrome Performed at: [facility] [address] [id number] Tooling Specialist: Yuri Osullivan PhD, Phone: [phone] SPECKLED PATTERN 1:320 High . [facility] Comment on above: ICAP nomenclature: A C-2,4,5,29 ANCA PROFILE (ANCA+MPO+PR3)o n 12-07-2023 ANTIMYELOPEROXIDASE (MPO) ABS <0.2 0.0 - 0.9 [facility] ATYPICAL PANCA <1:20 Neg:<1:20 [facility] Comment on above: The atypical pANCA p attern has been observed in a significant percentage of patients with ulcerative colitis, primary sclerosing cholangitis and autoimmune hepatitis. Performed at: [facility] [address] [id number] Tooling Specialist: Christine Pham MD, Phone: [phone] Performed at: [facility] [address] [id number] Tooling Specialist: Yuri Osullivan PhD, Phone: [phone] CYTOPLASMIC (C-ANCA) <1:20 Neg:<1:20 [facility] PERINUCLEAR [...] up testing of positive sera with both IN- 3 and MPO-ANCA enzyme immunoassays. As many as 5% serum samples are positive only by EIA. Ref. AM J Clin Pathol 1999;111:507-513. PROTEINASE 3 (PR3) ANTIBODIES <0.2 0.0 - 0.9 [facility] ANTI-CENTROMERE B ANTIBODIES on 12-07-2023 ANTI-CENTROMERE B ANTIBODIES <0.2 0.0 - 0.9 [facility] Comment on above: Performed at: [address] [id number] Tooling Specialist: Yuri Osullivan PhD, Phone: [phone] ANTI-DSDNA(DBL)ABon 12-07-19 24 ANTI-DSDNA(DBL)AB 1 0 - 9 [facility] Comment on above: Negative <5 Equivocal 5 - 9 Positive >9 ANTI-RNPon 12-07-2023 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 0.3 0.0 - 0.9 [facility] ANTIRIBOSOMAL P ANTIBODIESon 12-07-2023 ANTIRIBOSOMAL P ANTIBODIES <0.2 0.0 - 0.9 [facility] Anti-Fritz antibodyon 2023 ANTI-FRITZ ANTIBODIES <0.2 0.0 - 0.9 [facility] HISTONE ANTIBODIESon 024 HISTONE ANTIBODIES 0.6 0.0 - 0.9 [facility] Comment on above: Negative <1.0 Weak Positive 1.0 - 1.5 Moderate Positive 1.6 - 2.5 Strong Positive >2.5 Performed at: [address] [id number] Tooling Specialist: Christine Pham MD, Phone: [phone] SUSHMA-1 ANTIBODYon 12-07-2023 SUSHMA-1 ANTIBODY <0.2 0.0 - 0.9 [facility] Mitochondrial antibodies, M2 on 12-07-2023 MITOCHONDRIAL (M2) ANTIBODY <20.0 0.0 - 20.0 [facility] Comment on above: Negative 0.0 - 20.0 Equivocal 20.1 - 24.9 Positive >24.9 Mitochondrial (M2) Antibodies are found in 90-96% of patients with primary biliary cirrhosis. Performed at: [address] [id number] Tooling Specialist: Yuri Osullivan PhD, Phone: [phone] No Panel Informationon 12-06 [facility] SCLERODERMA 70 ANTIBODIESon 12-07-2023 SCLERODERMA 70 ANTIBODIES <0.2 0.0 - 0.9 [facility] SJOGRENS ANTI-SSA/SSBon 11-27 SS-A/RO SJOGRENS ANTIBODY <0.2 0.0 - 0.9 [facility] SS-B/LA SJOGRENS ANTIBODY <0.2 0.0 - 0.9 [facility] SRP AUTOANTIBODIESon 024 SRP (SIGNAL RECOG. PARTICLE) Negative Negative [facility] Comment on above: This test was develo ped and its performance characteristics determined by [facility]. It has not been cleared or approved by the Food and Drug Administration. Performed at: [facility] [address] [place] [id number] Tooling Specialist: Juan Cruz MD, Phone: [phone] Alanine aminotransferase [En zymatic activity/volume] in Serum or PlasmaOrdered By: Tolu Salinas on 12-02-2023 ALT [Catalytic activity/Vol] 31 U/L 7-52 [facility] Albumin [Mass/volume] in Ser um or Plasma by Bromocresol green (BCG) dye binding methoOrdered By: Tolu Salinas on 12-02-2023 Albumin BCG dye [Mass/Vol] 4.2 g/dL 3.5-5.7 [facility] Alkaline phosphatase [Enzyma tic activity/volume] in Serum or PlasmaOrdered By: Tolu Salinas on 12-02-2023 ALP [Catalytic activity/Vol] 75 U/L 34-104 [facility] Aspartate aminotransferase [ Enzymatic activity/volume] in Serum or PlasmaOrdered By: Tolu Salinas on 12-02-2023 AST [Catalytic activity/Vol] 37 U/L 13-39 [facility] Basophil percentageOrdered B y: Oz Kincaid on 12-02-2023 Basophil percentage 96 ug/dL 80-[address] [facility] Comment on above: This test was develo ped and its performance characteristicsdetermined by [facility] [employer]. It has not been cleared orapproved by the Food and Drug Administration. Detection Limit = 5Performed at: [facility] [employer] [id number] Director: Christine Pham MD, Phone: [phone] Basophil percentage 2 ug/L 0-[address] [facility] Comment on above: This test was develo ped and its performance characteristicsdetermined by [facility]. It has not been cleared orapproved by the Food and Drug Administration. Detection Limit = 1 Bilirubin.total [Mass/volume ] in Serum or PlasmaOrdered By: Tolu Salinas on 12-02-2023 Bilirubin [Mass/Vol] 0.4 mg/dL 0.3-1.0 [facility] Blood lead detectionOrdered By: Oz Kincaid on 12-02-2023 Lead Ql (Bld) <1.0 ug/dL 0.0-3.4 [facility] Comment on above: Testing performed by Inductively coupled plasma/MassSpectrometry.Analysis by inductively coupled plasma/massspectrometry (ICP/MS)This test was developed and its performance characteristicsdetermined by [employer]. It has not been cleared orapproved by the Food and Drug Administration. Environmental Exposure: WHO Recommendation <5.0 Occupational Exposure: OSHA Lead Std 40.0 BOB 30.0 Detection Limit = 1.0Performed at: [facility] [employer] [id number] Director: Yuri Osullivan PhD, Phone: [phone] Blood mercury measurement (m ass/volume)Ordered By: Oz Kinacid on 12-02-2023 Mercury (Bld) [Mass/Vol] <1.0 ug/L 0.0-14.9 [facility] Comment on above: This test was develo ped and its performance characteristicsdetermined by [employer]. It has not been cleared orapproved by the Food and Drug Administration. Detection Limit = 1.0Performed at: [facility] [employer] [id number] Director: Christine Pham MD, Phone: [phone] Calcium [Mass/volume] in Ser um or PlasmaOrdered By: Tolu Salinas on 12-02-2023 Calcium [Mass/Vol] 9.9 mg/dL 8.6-10.3 [facility] Carbon dioxide, total [Moles /volume] in Serum or PlasmaOrdered By: Tolu Salinas on 12-02-2023 CO2 [Moles/Vol] 32.0 mmol/L High 21.0-31.0 [facility] Chloride [Moles/volume] in S elliot or PlasmaOrdered By: Tolu Salinas on 12-02-2023 Chloride [Moles/Vol] 103 mmol/L 98-107 [facility] Creatinine [Mass/volume] in Serum or PlasmaOrdered By: Tolu Salinas on 12-02-2023 Creatinine [Mass/Vol] 0.97 mg/dL 0.60-1.20 [facility] Globulin Calc (S) [Mass/Vol] Ordered By: Tolu Salinas on 12-02-2023 Globulin (S) [Mass/Vol] 2.7 g/dL [facility] Glucose [Mass/volume] in Ser um or PlasmaOrdered By: Tolu Salinas on 12-02-2023 Glucose [Mass/Vol] 114 mg/dL High 70-100 [facility] Comment on above: ADA recommended refe rence rangeRandom Glucose Reference Range is dependent on time and content of last meal. Glucose of more than 200 mg/dL in a nonstressed, ambulatory subject supports the diagnosis of Diabetes Mellitus. HIV 1 and HIV-2 antibody ass ay with HIV-1 p24 antigen detectionOrdered By: Oz Kincaid on 12-02-2023 HIV 1+2 Ab+HIV1 p24 Ag IA Ql Non-Reactive Non Reactive [facility] Comment on above: HIV-1/HIV-2 antibodi es and HIV-1 p24 antigen were NOTdetected. There is no laboratory evidence of HIV infection.HIV NegativePerformed at: [facility] [employer] [id number] Director: Yuri Osullivan PhD, Phone: [phone] Hepatitis B virus surface Ag [Presence] in Serum or Plasma by ImmunoassayOrdered By: Oz Kincaid on 12-02-2023 HBV surface Ag IA Ql Negative Negative [facility] Hepatitis C virus IgG Ab [Pr esence] in Serum or Plasma by ImmunoassayOrdered By: Oz Kincaid on 12-02-2023 HCV IgG IA Ql Non-Reactive Non Reactive [facility] Hepatitis C virus RNA [Units /volume] (viral load) in Serum or Plasma by TEJINDER with probOrdered By: Oz Kincaid on 12-02-2023 HCV RNA TEJINDER+probe Qn N/A [facility] Hepatitis C virus RNA [log u nits/volume] (viral load) in Serum or Plasma by TEJINDER withOrdered By: Oz Kincaid on 12-02-2023 HCV RNA TEJINDER+probe [Log units/Vol] N/A [facility] Lactate dehydrogenase [Enzym atic activity/volume] in Serum or Plasma by Lactate to pyOrdered By: Oz Kincaid on 12-02-2023 LDH Lactate to pyruvate reaction [Catalytic activity/Vol] 156 U/L 140-271 [facility] Magnesium [Mass/volume] in S elliot or PlasmaOrdered By: Tolu Salinas on 12-02-2023 Magnesium [Mass/Vol] 2.0 mg/dL 1.9-2.7 [facility] No Panel InformationOrdered By: Oz Kincaid on 12-02-2023 Miscellaneous Test 2 See comment [facility] Comment on above: See report. Scanned copy available in EMR. Hepatitis A IgM Antibody Negative Negative [facility] Hepatitis B Core IgM Antibody Negative Negative [facility] Hepatitis C Interpretation Comment . [facility] Comment on above: Not infected with HC V unless early or acute infection issuspected (which may be delayed in an immunocompromisedindividual), or other evidence exists to indicate HCVinfection.Performed at: [employer] [address] [id number] Director: Yuri Osullivan PhD, Phone: [phone] Miscellaneous Test See comment [facility] Comment on above: See report. Scanned copy available in EMR. Whole Blood Zinc 768 ug/dL 440-860 [facility] Comment on above: This test was develo ped and its performance characteristicsdetermined by [facility]. It has not been cleared orapproved by the Food and Drug Administration.Performed at: [employer] [address] [id number] Director: Christine Pham MD, Phone: [phone] No Panel InformationOrdered By: Tolu Salinas on 12-02-2023 Estimated GFR (CKD-EPI) > 60.0 mL/Min [facility] Creatinine Clearance (Chem N/A [facility] Potassium [Moles/volume] in Serum or PlasmaOrdered By: Tolu Salinas on 12-02-2023 Potassium [Moles/Vol] 4.5 mmol/L 3.5-5.1 [facility] Protein [Mass/volume] in Ser um or PlasmaOrdered By: Tolu Salinas on 12-02-2023 Protein [Mass/Vol] 6.9 g/dL 6.4-8.9 [facility] Serum angiotensin converting enzyme (VITA) measurementOrdered By: Oz Kincaid on 12-02-2023 Angiotensin converting enzyme [Catalytic activity/Vol] 53 U/L 14-82 [facility] Comment on above: Performed at: [facility] [address] [id number] Director: Yuri Osullivan PhD, Phone: [phone] Serum cryoglobulin detection Ordered By: Oz Kincaid on 12-02-2023 Cryoglobulin Ql (S) Comment None detected [facility] Comment on above: None Detected at 72 hoursThis test was developed and its performance characteristicsdetermined by [employer]. It has not been cleared orapproved by the Food and Drug Administration.Performed at: [facility] [employer] [id number] Director: Yuri Osullivan PhD, Phone: [phone] Serum or plasma albumin/glob ulin mass ratioOrdered By: Tolu Salinas on 12-02-2023 Albumin/Globulin [Mass ratio] 1.6 {ratio} [facility] Serum or plasma anion gap de terminationOrdered By: Tolu Salinas on 12-02-2023 Anion gap [Moles/Vol] 8.5 mmol/L 6.0-15.0 [facility] Serum or plasma ceruloplasmi n measurement (mass/volume)Ordered By: Oz Kincaid on 12-02-2023 Ceruloplasmin [Mass/Vol] 26.8 mg/dL 19.0-39.0 [facility] Comment on above: Performed at: [facility] [address] [id number] Director: Yuri Osullivan PhD, Phone: [phone] Serum or plasma complement C 3 measurement (mass/volume)Ordered By: Oz Kincaid on 12-02-2023 Complement C3 [Mass/Vol] 147 mg/dL 82-167 [facility] Comment on above: Performed at: [facility] [employer] [address] [id number] Director: Yuri Osullivan PhD, Phone: [phone] Serum or plasma complement C 4 measurement (mass/volume)Ordered By: Oz Kincaid on 12-02-2023 Complement C4 [Mass/Vol] 32 mg/dL 12-38 [facility] Sodium [Moles/volume] in Ser um or PlasmaOrdered By: Tolu Salinas on 12-02-2023 Sodium [Moles/Vol] 139 mmol/L 136-145 [facility] Thallium [Mass/volume] in Se rum or PlasmaOrdered [...] was developed and its performance characteristicsdetermined by [facility]. It has not been cleared or approvedby the Food and Drug Administration.Performed at: [employer] [place] [id number] Director: Whitney Arevalo [facility], Phone: [phone] Urea nitrogen [Mass/volume] in Serum or PlasmaOrdered By: Tolu Salinas on 12-02-2023 Urea nitrogen [Mass/Vol] 11 mg/dL 11-20 [facility] LACTATE AND PYRUVATEon 11-27 Interpretation and review of laboratory results Abnormal [facility] LACTIC ACID, PLASMA 27.1 mg/dL High 4.8 - 25 .7 mg/dL [facility] PYRUVIC ACID, BLOOD 0.7 mg/dL 0.3 - 0. 7 mg/dL [facility] Comment on above: This test was develo ped and its performance characteristics determined by [employer]. It has not been cleared or approved by the Food and Drug Administration. Performed at: [facility] [id number] Tooling Specialist: Yuri Osullivan PhD, Phone: [phone] Performed at: [facility] [id number] Tooling Specialist: Christine Pham MD, Phone: [phone] [facility] DNA double strand Ab [Units/ volume] in SerumOrdered By: Oz Kincaid on 11-26-2023 DNA double strand Ab Qn (S) 1 [IU]/mL 0-9 [facility] Comment on above: Negative <5 Equivoca l 5 - 9 Positive >9 Myeloperoxidase Ab [Units/vo lume] in Serum by ImmunoassayOrdered By: Oz Kincaid on 11-26-2023 Myeloperoxidase Ab IA Qn (S) <0.2 units 0.0-0.9 [facility] No Panel InformationOrdered By: Oz Kincaid on 11-26-2023 Anti-Nuclear Antibody Comment 2 Comment . [facility] Comment on above: Pattern Potential Di sease Association Homogeneous Systemic Lupus Erythematosus, Drug Induced Systemic Lupus Erythematosus, Chronic Autoimmune hepatitis, Juvenile Idiopathic Arthritis Speckled Sjogren Syndrome, Systemic Lupus Erythematosus, Subacute Cutaneous Lupus, Lupus, Congenital Heart Block, Mixed Connective Tissue Disease, Scleroderma-diffuse, Scleroderma-Autoimmune Myositis Overlap Syndrome, Systemic Lupus Supthdozfjmxa-Peciqcqhigy-Cakertqted Myositis Overlap Syndrome, Systemic Autoimmune Rheumatic Disease, [...] Cytopenias, Linear Scleroderma, Antiphospholipid Syndrome Performed at: [employer] [facility] [id number] Director: Yuri Osullivan PhD, Phone: [phone] Atypical p-ANCA <1:20 titer Neg:<1:20 [facility] Comment on above: The atypical pANCA p attern has been observed in asignificant percentage of patients with ulcerative colitis,primary sclerosing cholangitis and autoimmune hepatitis.Performed at: [facility] [id number] Director: Christine Pham MD, Phone: [phone] at: [employer] [facility] [id number] Director: Yuri Osullivan PhD, Phone: [phone] Perinuclear ANCA (p-ANCA) Antibody <1:20 titer Neg:<1:20 [facility] Comment on above: The presence of posi tive fluorescence exhibiting P-ANCA orC-ANCA patterns alone is not specific for the diagnosis ofWegener's Granulomatosis (WG) or microscopic polyangiitis.Decisions about treatment should not be based solely onANCA IFA results. The International ANCA Group Consensusrecommends follow up testing of positive sera with both IN-3 and MPO-ANCA enzyme immunoassays. As many as 5% serumsamples are positive only by EIA. Ref. AM J Clin Nldbvh4611;111:507-513. Plasma Lactic Acid, Venous 27.1 mg/dL High 4.8-25.7 [facility] Pyruvic Acid 0.7 mg/dL 0.3-0.7 [facility] Comment on above: This test was develo ped and its performance characteristicsdetermined by [employer]. It has not been cleared orapproved by the Food and Drug Administration.Performed at: [facility] [address] [place], [place] [id number] Director: Yuri Osullivan PhD, Phone: [phone] at: [facility] - [facility] [id number] Director: Christine Pham MD, Phone: [phone] [employer] Antibody 0.3 AI 0.0-0.9 [facility] Scl-70 (Scleroderma) Antibody <0.2 AI 0.0-0.9 [facility] Signal Recognition Particle (SRP) Negative Negative [facility] Comment on above: This test was develo ped and its performance characteristicsdetermined by [employer]. It has not been cleared orapproved by the Food and Drug Administration.Performed at: [facility] [address] [place], [place] [id number] Director: Juan Cruz MD, Phone: [phone] Proteinase 3 Ab [Units/volum e] in Serum by ImmunoassayOrdered By: Oz Kincaid on 11-26-2023 Proteinase 3 Ab IA Qn (S) <0.2 units 0.0-0.9 [facility] Ribosomal P Ab [Units/volume ] in SerumOrdered By: Oz Kincaid on 11-26-2023 Ribosomal P Ab Qn (S) <0.2 AI 0.0-0.9 [facility] Serum Sushma-1 extractable nucle ar antibody assay (units/volume)Ordered By: Oz Kincaid on 11-26-2023 Sushma-1 extractable nuclear Ab Qn (S) <0.2 AI 0.0-0.9 [facility] Serum Sjogrens syndrome-A ex tractable nuclear antibody assay (units/volume)Ordered By: Oz Kincaid on 11-26-2023 Sjogrens syndrome-A extractable nuclear Ab Qn (S) <0.2 AI 0.0-0.9 [facility] Serum Sjogrens syndrome-B ex tractable nuclear antibody assay (units/volume)Ordered By: Oz Kincaid on 11-26-2023 Sjogrens syndrome-B extractable nuclear Ab Qn (S) <0.2 AI 0.0-0.9 [facility] Serum Fritz extractable nucl ear antigen (ARIELLE) antibody assay (units/volume)Ordered By: Oz Kincaid on 11-26-2023 Fritz extractable nuclear Ab Qn (S) <0.2 AI 0.0-0.9 [facility] Serum centromere protein B a ntibody assay (units/volume)Ordered By: Oz Kincaid on 11-26-2023 Centromere protein B Ab Qn (S) <0.2 AI 0.0-0.9 [facility] Comment on above: Performed at: [address] [id number] Director: Yuri Osullivan PhD, Phone: [phone] Serum classic neutrophil cyt oplasmic antibody titer by immunofluorescenceOrdered By: Oz Kincaid on 11-26-2023 Neutrophil cytoplasmic Ab.classic IF (S) [Titer] <1:20 titer Neg:<1:20 [facility] Serum histone IgG antibody a ssay by immunoassay (units/volume)Ordered By: Oz Kincaid on 11-26-2023 Histone IgG IA Qn (S) 0.6 Units 0.0-0.9 [facility] Comment on above: Negative <1.0 Weak P ositive 1.0 - 1.5 Moderate Positive 1.6 - 2.5 Strong Positive >2.5Performed at: [facility] [address] [id number] Director: Christine Pham MD, Phone: [phone] Serum homogeneous pattern an tinuclear antibody (BEATRICE) titerOrdered By: Oz Kincaid on 11-26-2023 Homogenous nuclear Ab pattern (S) [Titer] N/A [facility] Serum mitochondria M2 IgG an tibody assay (units/volume)Ordered By: Oz Kincaid on 11-26-2023 Mitochondria M2 IgG Qn (S) <20.0 Units 0.0-20.0 [facility] Comment on above: Negative 0.0 - 20.0 Equivocal 20.1 - 24.9 Positive >24.9Mitochondrial (M2) Antibodies are found in 90-96% ofpatients with primary biliary cirrhosis.Performed at: [facility] [id number] Director: Yuri Osullivan PhD, Phone: [phone] Serum nuclear antibody titer Ordered By: Oz Kincaid on 11-26-2023 Nuclear Ab (S) [Titer] Positive Abnormal . [facility] Comment on above: Negative <1:80 Borde rline 1:80 Positive >1:80 Serum speckled pattern antin uclear antibody (BEATRICE) titerOrdered By: Oz Kincaid on 11-26-2023 Speckled nuclear Ab pattern (S) [Titer] 1:320 High . [facility] Comment on above: ICAP nomenclature: A C-2,4,5,29 Aspartate aminotransferase [ Enzymatic activity/volume] in Serum or PlasmaOrdered By: Jonas Ch on 11-15-2023 AST [Catalytic activity/Vol] 45 U/L High 13-39 [facility] Calcium [Mass/volume] in Ser um or PlasmaOrdered By: Jonas Ch on 11-15-2023 Calcium [Mass/Vol] 10.7 mg/dL High 8.6-10.3 [facility] Carbon dioxide, total [Moles /volume] in Serum or PlasmaOrdered By: Jonas Ch on 11-15-2023 CO2 [Moles/Vol] 27.7 mmol/L 21.0-31.0 [facility] Chloride [Moles/volume] in S elliot or PlasmaOrdered By: Jonas Ch on 11-15-2023 Chloride [Moles/Vol] 102 mmol/L 98-107 [facility] Creatinine [Mass/volume] in Serum or PlasmaOrdered By: Jonas Ch on 11-15-2023 Creatinine [Mass/Vol] 1.02 mg/dL 0.60-1.20 [facility] Creatinine [Mass/volume] in UrineOrdered By: Angelique Russell on 11-15-2023 Creatinine (U) [Mass/Vol] 123.00 mg/dL [facility] Comment on above: No reference range e stablished Glucose [Mass/volume] in Ser um or PlasmaOrdered By: Jonas Ch on 11-15-2023 Glucose [Mass/Vol] 158 mg/dL High 70-100 [facility] Comment on above: ADA recommended refe rence rangeRandom Glucose Reference Range is dependent on time and content of last meal. Glucose of more than 200 mg/dL in a nonstressed, ambulatory subject supports the diagnosis of Diabetes Mellitus. Microalbumin [Mass/volume] i n UrineOrdered By: Angelique Russell on 11-15-2023 Albumin DL <= 20 mg/L (U) [Mass/Vol] 3.0 mg/dL High 0.0-1.8 [facility] No Panel InformationOrdered By: Jonas Ch on 11-15-2023 Estimated GFR (CKD-EPI) > 60.0 mL/Min [facility] Creatinine Clearance (Chem N/A [facility] Potassium [Moles/volume] in Serum or PlasmaOrdered By: Jonas Ch on 11-15-2023 Potassium [Moles/Vol] 4.1 mmol/L 3.5-5.1 [facility] Serum or plasma anion gap de terminationOrdered By: Jonas Ch on 11-15-2023 Anion gap [Moles/Vol] 12.4 mmol/L 6.0-15.0 [facility] Sodium [Moles/volume] in Ser um or PlasmaOrdered By: Jonas Ch on 11-15-2023 Sodium [Moles/Vol] 138 mmol/L 136-145 [facility] Thyrotropin [Units/volume] i n Serum or PlasmaOrdered By: Jonas Ch on 11-15-2023 TSH Qn 3.39 m[IU]/L 0.45-5.33 [facility] Urea nitrogen [Mass/volume] in Serum or PlasmaOrdered By: Jonas Ch on 11-15-2023 Urea nitrogen [Mass/Vol] 20 mg/dL 7-25 [facility] Urine microalbumin/creatinin e mass ratioOrdered By: Angelique Russell on 11-15-2023 Albumin/Creatinine DL <= 20 mg/L (U) [Mass ratio] 24.4 mg/g 0.0-30.0 [facility] Comment on above: 30-300 mg/g indicate s an increased risk for diabetic nephropathy. Greater than 300 mg/g is consistent with clinical nephropathy. (Am. J. Kidney Disease 1995, 25:107) No Panel Informationon 11-13 Bedside Glucose 139 [facility] ECG 12 Leadon 11-13-2023 Normal sinus rhythm Normal EKG QTc 457 ms [facility] Work Phone: Basophils Auto (Bld) [#/Vol] Ordered By: Chaka Frye on 11-12-2023 Basophils (Bld) [#/Vol] 0.0 10*3/uL 0.0-0.2 [facility] Basophils/100 WBC Auto (Bld) Ordered By: Chaka Frye on 11-12-2023 Basophils/100 WBC (Bld) 0.5 % . [facility] Calcium [Mass/volume] in Ser um or PlasmaOrdered By: Chaka Frye on 11-12-2023 Calcium [Mass/Vol] 9.5 mg/dL 8.6-10.3 [facility] Carbon dioxide, total [Moles /volume] in Serum or PlasmaOrdered By: Chaka Frye on 11-12-2023 CO2 [Moles/Vol] 30.0 mmol/L 21.0-31.0 [facility] Chloride [Moles/volume] in S elliot or PlasmaOrdered By: Chaka Frye on 11-12-2023 Chloride [Moles/Vol] 103 mmol/L 98-107 [facility] Creatinine [Mass/volume] in Serum or PlasmaOrdered By: Chaka Frye on 11-12-2023 Creatinine [Mass/Vol] 0.98 mg/dL 0.60-1.20 [facility] Eosinophils Auto (Bld) [#/Vo l]Ordered By: Chaka Frye on 11-12-2023 Eosinophils (Bld) [#/Vol] 0.4 10*3/uL 0.0-0.45 [facility] Eosinophils/100 WBC Auto (Bl d)Ordered By: Chaka Frye on 11-12-2023 Eosinophils/100 WBC (Bld) 5.2 % . [facility] Erythrocyte distribution wid th Auto (RBC) [Ratio]Ordered By: Chaka Frye on 11-12-2023 Erythrocyte distribution width (RBC) [Ratio] 14.0 % 11.9-15.3 [facility] Glucose Glucometer (BldC) [M ass/Vol]Ordered By: Chaka Frye on 11-12-2023 Glucose [Mass/Vol] 137 mg/dL [facility] Comment on above: Random Glucose Refer ence Range is dependent on time and content of last meal. Glucose of more than 200 mg/dL in a nonstressed, ambulatory subject supports the diagnosis of Diabetes Mellitus. Glucose [Mass/volume] in Ser um or PlasmaOrdered By: Chaka Frye on 11-12-2023 Glucose [Mass/Vol] 102 mg/dL High 70-100 [facility] Comment on above: ADA recommended refe rence rangeRandom Glucose Reference Range is dependent on time and content of last meal. Glucose of more than 200 mg/dL in a nonstressed, ambulatory subject supports the diagnosis of Diabetes Mellitus. Hematocrit Auto (Bld) [Volum e fraction]Ordered By: Chaka Frye on 11-12-2023 Hematocrit (Bld) [Volume fraction] 44.6 % 34.0-46.4 [facility] Hemoglobin [Mass/volume] in BloodOrdered By: Chaka Frye on 11-12-2023 Hemoglobin (Bld) [Mass/Vol] 14.6 g/dL 11.8-15.4 [facility] Leukocytes [#/volume] correc deepika for nucleated erythrocytes in Blood by Automated counOrdered By: Chaka Frye on 11-12-2023 WBC corrected for nucl RBC Auto (Bld) [#/Vol] 7.4 10*3/uL 3.8-11.6 [facility] Lymphocytes Auto (Bld) [#/Vo l]Ordered By: Chaka Frye on 11-12-2023 Lymphocytes (Bld) [#/Vol] 2.3 10*3/uL 1.00-4.8 [facility] Lymphocytes/100 WBC Auto (Bl d)Ordered By: Chaka Frye on 11-12-2023 Lymphocytes/100 WBC (Bld) 30.8 % . [facility] MCH Auto (RBC) [Entitic mass ]Ordered By: Chaka Frye on 11-12-2023 MCH (RBC) [Entitic mass] 32.2 pg 24.7-34.3 [facility] MCHC Auto (RBC) [Mass/Vol]Or dered By: Chaka Frye on 11-12-2023 MCHC (RBC) [Mass/Vol] 32.8 g/dL 32.0-35.0 Fir [facility] MCV Auto (RBC) [Entitic vol] Ordered By: Chaka Frye on 11-12-2023 MCV (RBC) [Entitic vol] 98.1 fL 80-100 [facility] Magnesium [Mass/volume] in S elliot or PlasmaOrdered By: Chaka Frye on 11-12-2023 Magnesium [Mass/Vol] 1.9 mg/dL 1.9-2.7 [facility] Monocytes Auto (Bld) [#/Vol] Ordered By: Chaka Frye on 11-12-2023 Monocytes (Bld) [#/Vol] 0.8 10*3/uL 0.0-0.8 [facility] Monocytes/100 WBC Auto (Bld) Ordered By: Chaka Frye on 11-12-2023 Monocytes/100 WBC (Bld) 11.0 % . [facility] Neutrophils Auto (Bld) [#/Vo l]Ordered By: Chaka Frye on 11-12-2023 Neutrophils (Bld) [#/Vol] 3.9 10*3/uL 1.8-7.7 [facility] Neutrophils/100 WBC Auto (Bl d)Ordered By: Chaka Frye on 11-12-2023 Neutrophils/100 WBC (Bld) 52.5 % . [facility] No Panel InformationOrdered By: Chaka Frye on 11-12-2023 Estimated GFR (CKD-EPI) > 60.0 mL/Min [facility] Creatinine Clearance (Chem 63.39 [facility] Nucleated erythrocytes [Pres ence] in Blood by Automated countOrdered By: Chaka Frye on 11-12-2023 Nucleated RBC Auto Ql (Bld) 0.1 /100{WBC} 0-0.5 [facility] Platelet mean volume Auto (B ld) [Entitic vol]Ordered By: Chaka Frye on 11-12-2023 Platelet mean volume (Bld) [Entitic vol] 9.1 fL 6.3-10.7 [facility] Platelets Auto (Bld) [#/Vol] Ordered By: Chaka Frye on 11-12-2023 Platelets (Bld) [#/Vol] 155 10*3/uL 150-450 [facility] Potassium [Moles/volume] in Serum or PlasmaOrdered By: Chaka rFye on 11-12-2023 Potassium [Moles/Vol] 4.4 mmol/L 3.5-5.1 [facility] RBC Auto (Bld) [#/Vol]Ordere d By: Chaka Frye on 11-12-2023 RBC (Bld) [#/Vol] 4.54 10*6/uL 3.60-5.[address] [facility] Serum or plasma anion gap de terminationOrdered By: Chaka Frye on 11-12-2023 Anion gap [Moles/Vol] 10.4 mmol/L 6.0-15.0 [facility] Sodium [Moles/volume] in Ser um or PlasmaOrdered By: Chaka Frye on 11-12-2023 Sodium [Moles/Vol] 139 mmol/L 136-145 [facility] Urea nitrogen [Mass/volume] in Serum or PlasmaOrdered By: Chaka Frye on 11-12-2023 Urea nitrogen [Mass/Vol] 18 mg/dL 7-25 [facility] WBC Auto (Bld) [#/Vol]Ordere d By: Chaka Frye on 11-12-2023 WBC (Bld) [#/Vol] 7.4 10*3/uL 3.8-11.6 [facility] Glucose mean value [Mass/vol ume] in Blood Estimated from glycated hemoglobinOrdered By: Jluis Campos on 11-11-2023 Average glucose Estimated from glycated hemoglobin (Bld) [Mass/Vol] 143 mg/dL [facility] Hemoglobin A1c percentageOrd ered By: Jluis Campos on 11-11-2023 HbA1c (Bld) [Mass fraction] 6.6 % High 4.3-5.6 [facility] Comment on above: Increased risk for d iabetes: 5.7 - 6.4diabetes: >6.4glycemic control for adults with diabetes: <7.0 LACTATE AND PYRUVATEon 11-10 LACTIC ACID, PLASMA . [facility] Comment on above: Test not performed. Supernatant is required. CONTACTED YOUR FACILity on 11-05-2023 PYRUVIC ACID, BLOOD . [facility] Comment on above: Test not performed [facility] No Panel InformationOrdered By: Kirt Renae on 11-11-2023 [employer] Antibody 0.2 AI 0.0-0.9 [facility] Serum Sushma-1 extractable nucle ar antibody assay (units/volume)Ordered By: Kirt Renae on 11-11-2023 Sushma-1 extractable nuclear Ab Qn (S) <0.2 AI 0.0-0.9 [facility] Comment on above: Performed at: [address] [id number] Director: Yuri Osullivan PhD, Phone: [phone] Serum Sjogrens syndrome-A ex tractable nuclear antibody assay (units/volume)Ordered By: Kirt Renae on 11-11-2023 Sjogrens syndrome-A extractable nuclear Ab Qn (S) <0.2 AI 0.0-0.9 [facility] Serum Sjogrens syndrome-B ex tractable nuclear antibody assay (units/volume)Ordered By: Kirt Renae on 11-11-2023 Sjogrens syndrome-B extractable nuclear Ab Qn (S) <0.2 AI 0.0-0.9 [facility] Serum or plasma thyroglobuli n antibody assay (units/volume)Ordered By: Kirt Renae on 11-11-2023 Thyroglobulin Ab Qn [IU]/mL 0.0-0.[address] [facility] Comment on above: Thyroglobulin Antibo dy measured by Mami CoulterMethodologyIt should be noted that the presence of thyroglobulinantibodies may not be pathogenic nor diagnostic, especiallyat very low levels. The assay nipping machine operator has found thatfour percent of individuals without evidence of thyroiddisease or autoimmunity will have positive TgAb levels upto 4 IU/mL.Performed at: [facility] [id number] Director: Yuri Osullivan PhD, Phone: [phone] Serum or plasma thyroperoxid ase antibody assay (units/volume)Ordered By: Kirt Renae on 11-11-2023 TPO Ab Qn [IU]/mL 0-34 [facility] Thyroxine (T4) free [Mass/vo lume] in Serum or PlasmaOrdered By: Kirt Renae on 11-11-2023 Free T4 [Mass/Vol] 0.83 ng/dL 0.61-1.12 [facility] Triiodothyronine (T3) Free [ Mass/volume] in Serum or PlasmaOrdered By: Kirt Renae on 11-11-2023 Free T3 [Mass/Vol] 2.60 pg/mL 2.50-3.90 [facility] Alanine aminotransferase [En zymatic activity/volume] in Serum or PlasmaOrdered By: Rl Villavicencio on 11-10-2023 ALT [Catalytic activity/Vol] 19 U/L 7-52 [facility] Albumin [Mass/volume] in Ser um or Plasma by Bromocresol green (BCG) dye binding methoOrdered By: Rl Villavicencio on 11-10-2023 Albumin BCG dye [Mass/Vol] 4.2 g/dL 3.5-5.7 [facility] Alkaline phosphatase [Enzyma tic activity/volume] in Serum or PlasmaOrdered By: Rl Villavicencio on 11-10-2023 ALP [Catalytic activity/Vol] 60 U/L 34-104 [facility] Aspartate aminotransferase [ Enzymatic activity/volume] in Serum or PlasmaOrdered By: Rl Villavicencio on 11-10-2023 AST [Catalytic activity/Vol] 29 U/L 13-39 [facility] Bacteria [Presence] in Urine by AutomatedOrdered By: Rl Villavicencio on 11-10-2023 Bacteria Auto Ql (U) 1+ [HPF] High None Seen [facility] Basophils Auto (Bld) [#/Vol] Ordered By: Rl Villavicencio on 11-10-2023 Basophils (Bld) [#/Vol] 0.1 10*3/uL 0.0-0.2 [facility] Basophils/100 WBC Auto (Bld) Ordered By: Rl Villavicencio on 11-10-2023 Basophils/100 WBC (Bld) 0.9 % . [facility] Bilirubin Test strip Ql (U)O rdered By: Rl Villavicencio on 11-10-2023 Bilirubin Ql (U) Negative Negative [facility] Bilirubin.total [Mass/volume ] in Serum or PlasmaOrdered By: Rl Villavicencio on 11-10-2023 Bilirubin [Mass/Vol] 0.4 mg/dL 0.3-1.0 [facility] C reactive protein [Mass/vol ume] in Serum or PlasmaOrdered By: Kirt Renae on 11-10-2023 CRP [Mass/Vol] < 0.5 mg/dL 0.0-0.5 [facility] Calcium [Mass/volume] in Ser um or PlasmaOrdered By: Rl Villavicencio on 11-10-2023 Calcium [Mass/Vol] 9.6 mg/dL 8.6-10.3 [facility] Carbon dioxide, total [Moles /volume] in Serum or PlasmaOrdered By: Rl Villavicencio on 11-10-2023 CO2 [Moles/Vol] 25.4 mmol/L 21.0-31.0 [facility] Chloride [Moles/volume] in S elloit or PlasmaOrdered By: Rl Villavicencio on 11-10-2023 Chloride [Moles/Vol] 105 mmol/L 98-107 [facility] Color Auto (U)Ordered By: Claudio Villavicencio on 11-10-2023 Color (U) Light-yellow Yellow [facility] Creatine kinase [Enzymatic a ctivity/volume] in Serum or PlasmaOrdered By: Rl Villavicencio on 11-10-2023 CK [Catalytic activity/Vol] 69 U/L 30-223 [facility] Creatinine [Mass/volume] in Serum or PlasmaOrdered By: Rl Villavicencio on 11-10-2023 Creatinine [Mass/Vol] 0.93 mg/dL 0.60-1.20 [facility] Eosinophils Auto (Bld) [#/Vo l]Ordered By: Rl Villavicencio on 11-10-2023 Eosinophils (Bld) [#/Vol] 0.3 10*3/uL 0.0-0.45 [facility] Eosinophils/100 WBC Auto (Bl d)Ordered By: Rl Villavicencio on 11-10-2023 Eosinophils/100 WBC (Bld) 3.7 % . [facility] Epithelial cells.squamous [# /area] in Urine sediment by Automated countOrdered By: Rl Villavicencio on 11-10-2023 Epithelial cells.squamous Auto (Urine sed) [#/Area] 5-9 [HPF] High 0-2 [facility] Erythrocyte distribution wid th Auto (RBC) [Ratio]Ordered By: Rl Villavicencio on 11-10-2023 Erythrocyte distribution width (RBC) [Ratio] 13.5 % 11.9-15.3 [facility] Erythrocyte sedimentation ra te by Photometric methodOrdered By: Kirt Renae on 11-10-2023 ESR Photometric method (Bld) [Velocity] 40 mm/hr High 0-29 [facility] Erythrocytes [#/area] in Uri ne sediment by Automated countOrdered By: Rl Villavicencio on 11-10-2023 RBC Auto (Urine sed) [#/Area] 5-9 [HPF] High 0-4 [facility] Folate [Mass/volume] in Seru m or PlasmaOrdered By: Kirt Renae on 11-10-2023 Folate [Mass/Vol] 19.6 ng/mL >5.9 [facility] Comment on above: Folate reference ran ge: >5.9 ng/mlThe WHO technical consultation on folate and vitamin [id number] has determined that folate concentrations lessthan 4 ng/ml are considered deficient. Globulin Calc (S) [Mass/Vol] Ordered By: Rl Villavicencio on 11-10-2023 Globulin (S) [Mass/Vol] 2.9 g/dL [facility] Glucose [Mass/volume] in Ser um or PlasmaOrdered By: Rl Villavicencio on 11-10-2023 Glucose [Mass/Vol] 95 mg/dL 70-100 [facility] Comment on above: ADA recommended refe rence rangeRandom Glucose Reference Range is dependent on time and content of last meal. Glucose of more than 200 mg/dL in a nonstressed, ambulatory subject supports the diagnosis of Diabetes Mellitus. Glucose [Mass/volume] in Uri ne by Test stripOrdered By: Rl Villavicencio on 11-10-2023 Glucose Test strip (U) [Mass/Vol] 1000 mg/dL High Normal [facility] Hematocrit Auto (Bld) [Volum e fraction]Ordered By: Rl Villavicencio on 11-10-2023 Hematocrit (Bld) [Volume fraction] 44.9 % 34.0-46.4 [facility] Hemoglobin Test strip Ql (U) Ordered By: Rl Villavicencio on 11-10-2023 Hemoglobin Ql (U) Negative Negative [facility] Hemoglobin [Mass/volume] in BloodOrdered By: Rl Villavicencio on 11-10-2023 Hemoglobin (Bld) [Mass/Vol] 15.0 g/dL 11.8-15.4 [facility] Hyaline casts [#/area] in Ur ine sediment by Automated countOrdered By: Rl Villavicencio on 11-10-2023 Hyaline casts Auto (Urine sed) [#/Area] None [LPF] 0-8 [facility] Ketones Test strip Ql (U)Ord ered By: Rl Villavicencio on 11-10-2023 Ketones Ql (U) Negative Negative [facility] Leukocyte clumps [Presence] in Urine by AutomatedOrdered By: Rl Villavicencio on 11-10-2023 Leukocyte clumps Auto Ql (U) Occasional [LPF] High None Seen [facility] Leukocyte esterase [Presence ] in Urine by Test stripOrdered By: Rl Villavicencio on 11-10-2023 Leukocyte esterase Test strip Ql (U) 4+ High Negative [facility] Leukocytes [#/area] in Urine sediment by Automated countOrdered By: Rl Villavicencio on 11-10-2023 WBC Auto (Urine sed) [#/Area] 20-49 [HPF] High 0-4 [facility] Leukocytes [#/volume] correc deepika for nucleated erythrocytes in Blood by Automated counOrdered By: Rl Villavicencio on 11-10-2023 WBC corrected for nucl RBC Auto (Bld) [#/Vol] 8.5 10*3/uL 3.8-11.6 [facility] Lymphocytes Auto (Bld) [#/Vo l]Ordered By: Rl Villavicencio on 11-10-2023 Lymphocytes (Bld) [#/Vol] 2.2 10*3/uL 1.00-4.8 [facility] Lymphocytes/100 WBC Auto (Bl d)Ordered By: Rl Villavicencio on 11-10-2023 Lymphocytes/100 WBC (Bld) 26.0 % . [facility] MCH Auto (RBC) [Entitic mass ]Ordered By: Rl Villavicencio on 11-10-2023 MCH (RBC) [Entitic mass] 32.6 pg 24.7-34.3 [facility] MCHC Auto (RBC) [Mass/Vol]Or dered By: Rl Villavicencio on 11-10-2023 MCHC (RBC) [Mass/Vol] 33.3 g/dL 32.0-35.0 [facility] MCV Auto (RBC) [Entitic vol] Ordered By: Rl Villavicencio on 11-10-2023 MCV (RBC) [Entitic vol] 97.8 fL 80-100 F [facility] Magnesium [Mass/volume] in S elliot or PlasmaOrdered By: Rl Villavicencio on 11-10-2023 Magnesium [Mass/Vol] 1.7 mg/dL Low 1.9-2.7 [facility] Monocyte distribution width [Entitic volume] in Blood by AutomatedOrdered By: Rl Villavicencio on 11-10-2023 Monocyte distribution width Auto (Bld) [Entitic vol] 19.74 % 0.00-20.00 [facility] Monocytes Auto (Bld) [#/Vol] Ordered By: Rl Villavicencio on 11-10-2023 Monocytes (Bld) [#/Vol] 0.7 10*3/uL 0.0-0.8 [facility] Monocytes/100 WBC Auto (Bld) Ordered By: Rl Villavicencio on 11-10-2023 Monocytes/100 WBC (Bld) 8.2 % . [facility] Neutrophils Auto (Bld) [#/Vo l]Ordered By: Rl Villavicencio on 11-10-2023 Neutrophils (Bld) [#/Vol] 5.2 10*3/uL 1.8-7.7 [facility] Neutrophils/100 WBC Auto (Bl d)Ordered By: Rl Villavicencio on 11-10-2023 Neutrophils/100 WBC (Bld) 61.2 % . [facility] Nitrite Test strip Ql (U)Ord ered By: Rl Villavicencio on 11-10-2023 Nitrite Ql (U) Negative Negative [facility] No Panel InformationOrdered By: Kirt Renae on 11-10-2023 Bedside Glucose Comment Glu2: cleaned meter [facility] No Panel InformationOrdered By: Rl Villavicencio on 11-10-2023 Estimated GFR (CKD-EPI) > 60.0 mL/Min [facility] Creatinine Clearance (Chem 66.28 [facility] Nucleated erythrocytes [Pres ence] in Blood by Automated countOrdered By: Rl Villavicencio on 11-10-2023 Nucleated RBC Auto Ql (Bld) 0.1 /100{WBC} 0-0.5 [facility] Platelet mean volume Auto (B ld) [Entitic vol]Ordered By: Rl Villavicencio on 11-10-2023 Platelet mean volume (Bld) [Entitic vol] 8.7 fL 6.3-10.7 [facility] Platelets Auto (Bld) [#/Vol] Ordered By: Rl Villavicencio on 11-10-2023 Platelets (Bld) [#/Vol] 149 10*3/uL Low 150-450 [facility] Potassium [Moles/volume] in Serum or PlasmaOrdered By: Rl Villavicencio on 11-10-2023 Potassium [Moles/Vol] 4.6 mmol/L 3.5-5.1 [facility] Comment on above: Hemolysis is present at a level that could interfere with the result.Contact lab if redraw is required Protein Test strip (U) [Mass /Vol]Ordered By: Rl Villavicencio on 11-10-2023 Protein (U) [Mass/Vol] Negative Negative [facility] Protein [Mass/volume] in Ser um or PlasmaOrdered By: Rl Villavicencio on 11-10-2023 Protein [Mass/Vol] 7.1 g/dL 6.4-8.9 [facility] RBC Auto (Bld) [#/Vol]Ordere d By: Rl Villavicencio on 11-10-2023 RBC (Bld) [#/Vol] 4.59 10*6/uL 3.60-5.[address] [facility] Serum or plasma albumin/glob ulin mass ratioOrdered By: Rl Villavicencio on 11-10-2023 Albumin/Globulin [Mass ratio] 1.4 {ratio} [facility] Serum or plasma anion gap de terminationOrdered By: Rl Villavicencio on 11-10-2023 Anion gap [Moles/Vol] 11.2 mmol/L 6.0-15.0 [facility] Sodium [Moles/volume] in Ser um or PlasmaOrdered By: Rl Villavicencio on 11-10-2023 Sodium [Moles/Vol] 137 mmol/L 136-145 [facility] Specific gravity Test strip (U) [Rel density]Ordered By: Rl Villavicencio on 11-10-2023 Specific gravity (U) [Rel density] 1.007 1.001-1.03 0 [facility] Thyrotropin [Units/volume] i n Serum or PlasmaOrdered By: Jluis Campos on 11-10-2023 TSH Qn 5.73 m[IU]/L High 0.45-5.33 [facility] Urea nitrogen [Mass/volume] in Serum or PlasmaOrdered By: Rl Villavicencio on 11-10-2023 Urea nitrogen [Mass/Vol] 14 mg/dL 7-25 [facility] Urine appearanceOrdered By: Rl Villavicencio on 11-10-2023 Appearance (U) Clear Clear [facility] Urine culture routineOrdered By: Rl Villavicencio on 11-10-2023 Bacteria identified Cx Nom (U) 2 Days [facility] Urobilinogen Test strip (U) [Mass/Vol]Ordered By: Rl Villavicencio on 11-10-2023 Urobilinogen (U) [Mass/Vol] Normal mg/dL Normal [facility] Vitamin B12 ser/plasOrdered By: Kirt Renae on 11-10-2023 Cobalamin (Vitamin B12) [Mass/Vol] 306 pg/mL 180-914 [facility] Vitamin D+Metabolites [Mass/ volume] in Serum or PlasmaOrdered By: Jluis Campos on 11-10-2023 Vitamin D+Metabolites [Mass/Vol] 61.3 ng/mL 30-100 [facility] Comment on above: Hemolysis is present [...] 11-10-2023 WBC (Bld) [#/Vol] 8.5 10*3/uL 3.8-11.6 [facility] pH Test strip (U)Ordered By: Rl Villavicencio on 11-10-2023 pH (U) 6.0 [pH] 5.0-9.0 [facility] Glucose Glucometer (BldC) [M ass/Vol]Ordered By: OSORIO TEMP on 11-09-2023 Glucose [Mass/Vol] 139 mg/dL [facility] Comment on above: Random Glucose Refer ence Range is dependent on time and content of last meal. Glucose of more than 200 mg/dL in a nonstressed, ambulatory subject supports the diagnosis of Diabetes Mellitus. Carbon dioxide, total [Moles /volume] in Serum or PlasmaOrdered By: Jonas Ch on 11-05-2023 CO2 [Moles/Vol] 28.6 mmol/L 21.0-31.0 [facility] Chloride [Moles/volume] in S elliot or PlasmaOrdered By: Jonas Ch on 11-05-2023 Chloride [Moles/Vol] 104 mmol/L 98-107 [facility] Potassium [Moles/volume] in Serum or PlasmaOrdered By: Jonas Ch on 11-05-2023 Potassium [Moles/Vol] 4.6 mmol/L 3.5-5.1 [facility] Serum or plasma anion gap de terminationOrdered By: Jonas Ch on 11-05-2023 Anion gap [Moles/Vol] 11.0 mmol/L 6.0-15.0 [facility] Sodium [Moles/volume] in Ser um or PlasmaOrdered By: Jonas Ch on 11-05-2023 Sodium [Moles/Vol] 139 mmol/L 136-145 [facility] Alanine aminotransferase [En zymatic activity/volume] in Serum or PlasmaOrdered By: Oz Kincaid on 10-30-2023 ALT [Catalytic activity/Vol] 23 U/L 7-52 [facility] Albumin [Mass/volume] in Ser um or PlasmaOrdered By: Oz Kincaid on 10-30-2023 Albumin [Mass/Vol] 4.2 g/dL 2.9-4.4 [facility] Albumin/Protein.total in 24 hour Urine by ElectrophoresisOrdered By: Oz Kincaid on 10-30-2023 Albumin Elph (24H U) [Mass fraction] 35.7 % . [facility] Alpha tocopherol [Mass/volum e] in Serum or PlasmaOrdered By: Oz Kincaid on 10-30-2023 Alpha tocopherol [Mass/Vol] 8.7 mg/L Low 9.0-29.0 [facility] Comment on above: This test was devidaliao jonnie and its performance characteristicsdetermined by [employer]. It has not been cleared orapproved by the Food and Drug Administration. Aspartate aminotransferase [ Enzymatic activity/volume] in Serum or PlasmaOrdered By: Oz Kincaid on 10-30-2023 AST [Catalytic activity/Vol] 26 U/L 13-39 [facility] Borrelia burgdorferi Ab [Int erpretation] in SerumOrdered By: Oz Kincaid on 10-30-2023 B. burgdorferi Ab (S) [Interp] N/A [facility] Borrelia burgdorferi IgG Ab [Presence] in Serum or Plasma by ImmunoassayOrdered By: Oz Kincaid on 10-30-2023 B. burgdorferi IgG IA Ql N/A [facility] Borrelia burgdorferi IgG+IgM Ab [Presence] in Serum by ImmunoassayOrdered By: Oz Kincaid on 10-30-2023 B. burgdorferi IgG+IgM IA Ql (S) Negative Negative [facility] Comment on above: Lyme antibodies not detected. Reflex testing is notindicated.No laboratory evidence of infection with B. burgdorferi(Lyme disease). Negative results may occur in patientsrecently infected (less than or equal to 14 days) with B.burgdorferi. If recent infection is suspected, repeattesting on a new sample collected in 7 to 14 days isrecommended.Performed at: [facility] [id number] Director: Yuri Osullivan PhD, Phone: [phone] Lyme antibodies not detected. Reflex testing is notindicated.No laboratory evidence of infection with B. burgdorferi(Lyme disease). Negative results may occur in patientsrecently infected (less than or equal to 14 days) with B.burgdorferi. If recent infection is suspected, repeattesting on a new sample collected in 7 to 14 days isrecommended.Performed at: [facility] [id number] Director: Yuri Osullivan PhD, Phone: [phone] Lyme antibodies not detected. Reflex testing is [...] in 7 to 14 days isrecommended.Performed at: [facility] [address] [id number] Director: Yuri Osullivan PhD, Phone: [phone] Borrelia burgdorferi IgM Ab [Presence] in Serum or Plasma by ImmunoassayOrdered By: Oz Kincaid on 10-30-2023 B. burgdorferi IgM IA Ql N/A [facility] C reactive protein [Mass/vol ume] in Serum or Plasma by High sensitivity methodOrdered By: Oz Kincaid on 10-30-2023 CRP High sensitivity method [Mass/Vol] 2.2 mg/L High 0.0-0.9 [facility] Comment on above: Cardiovascular Risk Classification [...] on 10-30-2023 CT biopsy 5.0 U/L 3.3-10.3 [facility] Comment on above: Performed at: [facility] [address] [id number] Director: Yuri Osullivan PhD, Phone: [phone] Creatine kinase [Enzymatic a ctivity/volume] in Serum or PlasmaOrdered By: Oz Kincaid on 10-30-2023 CK [Catalytic activity/Vol] 46 U/L 30-223 [facility] Erythrocyte sedimentation ra te by Photometric methodOrdered By: Oz Kincaid on 10-30-2023 ESR Photometric method (Bld) [Velocity] 26 mm/hr 0-29 [facility] Folate [Mass/volume] in Seru m or PlasmaOrdered By: Oz Kincaid on 10-30-2023 Folate [Mass/Vol] 34.0 ng/mL >5.9 [facility] Comment on above: Folate reference ran ge: >5.9 ng/mlThe WHO technical consultation on folate and vitamin [id number] has determined that folate concentrations lessthan 4 ng/ml are considered deficient. Gamma globulin/Protein.total in 24 hour Urine by ElectrophoresisOrdered By: Oz Kincaid on 10-30-2023 Gamma globulin Elph (24H U) [Mass fraction] 23.2 % . [facility] Gamma-tocopherol measurement (mass/volume)Ordered By: Oz Kincaid on 10-30-2023 Gamma tocopherol [Mass/Vol] 0.7 mg/L 0.5-4.9 [facility] Comment on above: This test was develo ped and its performance characteristicsdetermined by [employer]. It has not been cleared orapproved by the Food and Drug Administration.Reference intervals for alpha and gamma-tocopheroldetermined from National Health and Nutrition ExaminationSurvey, 2710-8634. Individuals with alpha-tocopherol levelsless than 5.0 mg/L are considered vitamin E deficient. Glucose mean value [Mass/vol ume] in Blood Estimated from glycated hemoglobinOrdered By: Oz Kincaid on 10-30-2023 Average glucose Estimated from glycated hemoglobin (Bld) [Mass/Vol] 143 mg/dL [facility] Hemoglobin A1c percentageOrd ered By: Oz Kincaid on 10-30-2023 HbA1c (Bld) [Mass fraction] 6.6 % High 4.3-5.6 [facility] Comment on above: Increased risk for d iabetes: 5.7 - 6.4diabetes: >6.4glycemic control for adults with diabetes: <7.0 IgA [Mass/volume] in Serum o r PlasmaOrdered By: Oz Kincaid on 10-30-2023 IgA [Mass/Vol] 265 mg/dL 87-352 [facility] IgG [Mass/volume] in Serum o r PlasmaOrdered By: Oz Kincaid on 10-30-2023 IgG [Mass/Vol] 1034 mg/dL [phone] [facility] IgM [Mass/volume] in Serum o r PlasmaOrdered By: Oz Kincaid on 10-30-2023 IgM [Mass/Vol] 48 mg/dL 26-217 [facility] Comment on above: Performed at: [facility] [address] [id number] Director: Yuri Osullivan PhD, Phone: [phone] Immunofixation for UrineOrde red By: Oz Kincaid on 10-30-2023 Interpretation Immunofixation (U) [Interp] See comment . [facility] Comment on above: No monoclonality det ected.Performed at: [facility] [address] [id number] Director: Yuri Osullivan PhD, Phone: [phone] No Panel InformationOrdered By: Oz Kincaid on 10-30-2023 Anti-Nuclear Antibody Comment 2 See comment . [facility] Comment on above: Pattern Potential Di sease Association Homogeneous Systemic Lupus Erythematosus, Drug Induced Systemic Lupus Erythematosus, Chronic Autoimmune hepatitis, Juvenile Idiopathic Arthritis Speckled Sjogren Syndrome, Systemic Lupus Erythematosus, Subacute Cutaneous Lupus, Lupus, Congenital Heart Block, Mixed Connective Tissue Disease, Scleroderma-diffuse, Scleroderma-Autoimmune Myositis Overlap Syndrome, Systemic Lupus Gcuzxltmnaxjr-Qtskjwovxxx-Bmevxmufax Myositis Overlap Syndrome, Systemic Autoimmune Rheumatic Disease, [...] Cytopenias, Linear Scleroderma, Antiphospholipid Syndrome Performed at: [address] [id number] Director: Christine Pham MD, Phone: [phone] at: [id number] [place], [place] [id number] Director: Yuri Osullivan PhD, Phone: [phone] Pattern Potential Corinne montalvo Association Homogeneous Systemic Lupus Erythematosus, Drug Induced Systemic Lupus Erythematosus, Chronic Autoimmune hepatitis, Juvenile Idiopathic Arthritis Speckled Sjogren Syndrome, Systemic Lupus Erythematosus, Subacute Cutaneous Lupus, Lupus, Congenital Heart Block, Mixed Connective Tissue Disease, Scleroderma-diffuse, Scleroderma-Autoimmune Myositis Overlap Syndrome, Systemic Lupus Qgjbmixgptivp-Ykfngazepxp-Vapnjxikkl Myositis Overlap Syndrome, Systemic Autoimmune Rheumatic Disease, [...] Cytopenias, Linear Scleroderma, Antiphospholipid Syndrome Performed at: [facility] [address] [place], [place] [id number] Director: Christine Pham MD, Phone: [phone] at: [facility] [id number] [place], [place] [id number] Director: Yuri Osullivan PhD, Phone: [phone] Pattern Potential Disease Association Homogeneous Systemic Lupus Erythematosus, Drug Induced Systemic Lupus Erythematosus, Chronic Autoimmune hepatitis, Juvenile Idiopathic Arthritis Speckled Sjogren Syndrome, Systemic Lupus Erythematosus, Subacute Cutaneous Lupus, Lupus, Congenital Heart Block, Mixed Connective Tissue Disease, Scleroderma-diffuse, Scleroderma-Autoimmune Myositis Overlap Syndrome, Systemic Lupus Wzmzqrfwatati-Gxjczwxdvza-Oypraefnpw Myositis Overlap Syndrome, Systemic Autoimmune Rheumatic Disease, [...] Cytopenias, Linear Scleroderma, Antiphospholipid Syndrome Performed at: [facility] [address] [id number] Director: Yuri Osullivan PhD, Phone: [phone] at: [facility] [address] [id number] Director: Christine Pham MD, Phone: [phone] --- 11/06/23 1236 ---BEATRICE CALEB Note 1 previously reported as: Pattern Potential Disease Association Homogeneous Systemic Lupus Erythematosus, Drug Induced Systemic Lupus Erythematosus, Chronic Autoimmune hepatitis, Juvenile Idiopathic Arthritis Speckled Sjogren Syndrome, Systemic Lupus Erythematosus, Subacute Cutaneous Lupus, Lupus, Congenital Heart Block, Mixed Connective Tissue Disease, Scleroderma-diffuse, Scleroderma-Autoimmune Myositis Overlap Syndrome, Systemic Lupus Davlmfzieinyw-Exdzfqofvuj-Thepgtbrkm Myositis Overlap Syndrome, Systemic Autoimmune Rheumatic Disease, [...] (more content not included)... Lactate/Pyruvate Interpretation N/A [facility] Plasma Lactic Acid, Venous See comment . [facility] Comment on above: Test not performed. Supernatant is required.CONTACTED YOUR FACILity on 11-05-2023 Protein Electrophoresis M-Meir Not observed g/dL Not Observed [facility] Protein Electrophoresis Note See comment . [facility] Comment on above: Protein electrophore sis scan will follow via computer,mail, or fine unhairer delivery. Pyruvic Acid See comment . [facility] Comment on above: Test not performed Serum Immunofixation See comment . [facility] Comment on above: No monoclonality det ected. Urine Random Prot Electrophor Note See comment . [facility] Comment on above: Protein electrophore sis scan will follow via computer,mail, or fine unhairer delivery.Performed at: [facility] [id number] Director: Yuri Osullivan PhD, Phone: [phone] Whole Blood Zinc 909 ug/dL High 440-860 [facility] Comment on above: This test was develo ped and its performance characteristicsdetermined by [facility]. It has not been cleared orapproved by the Food and Drug Administration.Performed at: [address] [id number] Director: Christine Pham MD, Phone: [phone] This test was develo ped and its performance characteristicsdetermined by [facility]. It has not been cleared orapproved by the Food and Drug Administration.Performed at: [address] [id number] Director: Christine Pham MD, Phone: [phone] This test was developed and its performance characteristicsdetermined by [facility]. It has not been cleared orapproved by the Food and Drug Administration. --- 11/06/23 1236 ---Zinc,WB previously reported as: 909 H ug/dLThis test was developed and its performance characteristicsdetermined by [facility]. It has not been cleared orapproved by the Food and Drug Administration.Performed at: [address] [id number] Director: Christine Pham MD, Phone: [phone] Protein [Mass/volume] in Ser um or PlasmaOrdered By: Oz Kincaid on 10-30-2023 Protein [Mass/Vol] 7.7 g/dL 6.0-8.5 [facility] Protein [Mass/volume] in Uri neOrdered By: Oz Kincaid on 10-30-2023 Protein (U) [Mass/Vol] 28.8 mg/dL Not Estab. [facility] Protein.monoclonal/Protein.t otal in 24 hour Urine by ElectrophoresisOrdered By: Oz Kincaid on 10-30-2023 Protein.monoclonal Elph (24H U) [Mass fraction] Not observed % Not Observed [facility] Reagin Ab [Presence] in Seru m by RPROrdered By: Oz Kincaid on 10-30-2023 Reagin Ab RPR Ql (S) Non-Reactive Non Reactive [facility] Comment on above: Performed at: [facility] [address] [id number] Director: Yuri Osullivan PhD, Phone: [phone] Serum West Nile virus IgG an tibody detection by immunoassayOrdered By: Oz Kincaid on 10-30-2023 West Nile virus IgG IA Ql (S) Negative Negative [facility] Serum West Nile virus IgM an tibody detection by immunoassayOrdered By: Oz Kincaid on 10-30-2023 West Nile virus IgM IA Ql (S) Negative Negative [facility] Comment on above: Performed at: [facility] - [facility] [address] [id number] Director: Christine Pham MD, Phone: [phone] Serum globulin measurement ( mass/volume)Ordered By: Oz Kincaid on 10-30-2023 Globulin (S) [Mass/Vol] 3.5 g/dL 2.2-3.9 [facility] Serum homogeneous pattern an tinuclear antibody (BEATRICE) titerOrdered By: Oz Kincaid on 10-30-2023 Homogenous nuclear Ab pattern (S) [Titer] N/A [facility] Serum nuclear antibody titer Ordered By: Oz Kincaid on 10-30-2023 Nuclear Ab (S) [Titer] Positive Abnormal . [facility] Comment on above: Negative <1:80 Borde rline 1:80 Positive >1:80 Serum or plasma albumin/glob ulin mass ratioOrdered By: Oz Kincaid on 10-30-2023 Albumin/Globulin [Mass ratio] 1.2 {ratio} 0.7-1.7 [facility] Serum or plasma alpha 1 glob ulin measurement by electrophoresis (mass/volume)Ordered By: Oz Kincaid on 10-30-2023 Alpha 1 globulin Elph [Mass/Vol] 0.3 g/dL 0.0-0.4 [facility] Serum or plasma alpha 2 glob ulin measurement by electrophoresis (mass/volume)Ordered By: Oz Kincaid on 10-30-2023 Alpha 2 globulin Elph [Mass/Vol] 1.0 g/dL 0.4-1.0 [facility] Serum or plasma beta globuli n measurement by electrophoresis (mass/volume)Ordered By: Oz Kincaid on 10-30-2023 Beta globulin Elph [Mass/Vol] 1.1 g/dL 0.7-1.3 [facility] Serum or plasma ceruloplasmi n measurement (mass/volume)Ordered By: Oz Kincaid on 10-30-2023 Ceruloplasmin [Mass/Vol] 30.1 mg/dL 19.0-39.0 [facility] Comment on above: Performed at: [facility] [address] [id number] Director: Yuri Osullivan PhD, Phone: [phone] Serum or plasma gamma globul in measurement by electrophoresis (mass/volume)Ordered By: Oz Kincaid on 10-30-2023 Gamma globulin Elph [Mass/Vol] 1.1 g/dL 0.4-1.8 [facility] Serum or plasma homocysteine measurement (moles/volume)Ordered By: Oz Kincaid on 10-30-2023 Homocysteine [Moles/Vol] 20.7 umol/L High 0.0-17.2 [facility] Comment on above: Performed at: [facility] [address] [id number] Director: Yuri Osullivan PhD, Phone: [phone] Serum or plasma lutropin coleman surement (units/volume)Ordered By: Oz Kincaid on 10-30-2023 Lutropin Qn 60.4 m[IU]/mL High 7.7-58.5 [facility] Comment on above: Adult Female Range F ollicular phase 2.4 - 12.6 Ovulation phase 14.0 - 95.6 Luteal phase 1.0 - 11.4 Postmenopausal 7.7 - 58.5 Serum or plasma methylmalona te measurement (moles/volume)Ordered By: Oz Kincaid on 10-30-2023 Methylmalonate [Moles/Vol] 247 nmol/L 0-378 [facility] Comment on above: This test was develo ped and its performance characteristicsdetermined by [facility]. It has not been cleared orapproved by the Food and Drug Administration.Performed at: [address] [id number] Director: Christine Pham MD, Phone: [phone] This test was develo ped and its performance characteristicsdetermined by [facility]. It has not been cleared orapproved by the Food and Drug Administration.Performed at: [address] [id number] Director: Christine Pham MD, Phone: [phone] This test was developed and its performance characteristicsdetermined by [employer]. It has not been cleared orapproved by the Food and Drug Administration. --- 11/06/23 1236 ---Methylmal Acid previously reported as: 247 nmol/LThis test was developed and its performance characteristicsdetermined by [employer]. It has not been cleared orapproved by the Food and Drug Administration.Performed at: [address] [id number] Director: Christine Pham MD, Phone: [phone] Serum or plasma pyridoxine m easurement (mass/volume)Ordered By: Oz Kincaid on 10-30-2023 Pyridoxine [Mass/Vol] 8.8 ug/L 3.4-65.2 [facility] Comment on above: This test was develo ped and its performance characteristicsdetermined by [facility]. It has not been cleared orapproved by the Food and Drug Administration. Deficiency: <3.4 Marginal: 3.4 - 5.1 Adequate: >5.1Performed at: [address] [id number] Director: Christine Pham MD, Phone: [phone] Serum or plasma rheumatoid f actor measurement (units/volume)Ordered By: Oz Kincaid on 10-30-2023 Rheumatoid factor Qn [IU]/mL <14.0 [facility] Serum speckled pattern antin uclear antibody (BEATRICE) titerOrdered By: Oz Kincaid on 10-30-2023 Speckled nuclear Ab pattern (S) [Titer] 1:80 . [facility] Comment on above: ICAP nomenclature: A C-2,4,5,29 Thyrotropin [Units/volume] i n Serum or PlasmaOrdered By: Oz Kincaid on 10-30-2023 TSH Qn 6.38 m[IU]/L High 0.45-5.33 [facility] Thyroxine (T4) free [Mass/vo lume] in Serum or PlasmaOrdered By: Oz Kincaid on 10-30-2023 Free T4 [Mass/Vol] 0.89 ng/dL 0.61-1.12 [facility] Urine alpha 1 globulin/total protein by electrophoresisOrdered By: Oz Kincaid on 10-30-2023 Alpha 1 globulin Elph (U) [Mass fraction] 0.4 % . [facility] Urine alpha 2 globulin/total protein ratio by electrophoresisOrdered By: Oz Kincaid on 10-30-2023 Alpha 2 globulin Elph (U) [Mass fraction] 8.9 % . [facility] Urine beta globulin measurem ent by electrophoresis (mass/volume)Ordered By: Oz Kincaid on 10-30-2023 Beta globulin Elph (U) [Mass/Vol] 31.7 % . [facility] Vitamin B12 ser/plasOrdered By: Oz Kincaid on 10-30-2023 Cobalamin (Vitamin B12) [Mass/Vol] 300 pg/mL 180-914 [facility] Glucose Glucometer (BldC) [M ass/Vol]Ordered By: Elva Florian on 09-14-2023 Glucose [Mass/Vol] 134 mg/dL [facility] Comment on above: Random Glucose Refer ence Range is dependent on time and content of last meal. Glucose of more than 200 mg/dL in a nonstressed, ambulatory subject supports the diagnosis of Diabetes Mellitus. No Panel InformationOrdered By: Elva Florian on 09-14-2023 Bedside Glucose Comment Glu2: cleaned meter [facility] Cholesterol [Mass/volume] in Serum or PlasmaOrdered By: Elva Florian on 09-13-2023 Cholesterol [Mass/Vol] 125 mg/dL Low 140-200 [facility] Comment on above: Chol less than 200 m g/dl low riskChol 201-239 mg/dl borderline riskChol 240 mg/dl and greater high risk Cholesterol in LDL Calc [Mas s/Vol]Ordered By: Elva Florian on 09-13-2023 Cholesterol in LDL [Mass/Vol] 59 mg/dL 0-100 [facility] Comment on above: LDL ATP III CLASSIFI CATIONLDL less than 100 mg/dL OptimalLDL 100-129 mg/dL Near or above optimalLDL 130-159 mg/dL Borderline highLDL 160-189 mg/dL HighLDL greater than 189 mg/dL Very high Cholesterol in VLDL Calc [Ma ss/Vol]Ordered By: Elva Florian on 09-13-2023 Cholesterol in VLDL [Mass/Vol] 39 mg/dL [facility] Magnesium [Mass/volume] in S elliot or PlasmaOrdered By: Elva Florian on 09-13-2023 Magnesium [Mass/Vol] 1.6 mg/dL Low 1.9-2.7 [facility] Serum or plasma high density lipoprotein (HDL) cholesterol measurementOrdered By: Elva Florian on 09-13-2023 Cholesterol in HDL [Mass/Vol] 26 mg/dL 23-92 [facility] Comment on above: HDL CHOL ATP-III CLA SSIFICATION Cardiovascular RiskHDL > or equal to 60 mg/dL LOWHDL < 40 mg/dL HIGH Serum or plasma total choles terol/high density lipoprotein (HDL) cholesterol mass ratOrdered By: Elva Florian on 09-13-2023 Cholesterol.total/Monica sterol in HDL [Mass ratio] 4.8 {ratio} <5.0 [facility] Thyrotropin [Units/volume] i n Serum or PlasmaOrdered By: Elva Florian on 09-13-2023 TSH Qn 2.48 m[IU]/L 0.45-5.33 [facility] Triglyceride [Mass/volume] i n Serum or PlasmaOrdered By: Elva Florian on 09-13-2023 Triglyceride [Mass/Vol] 198 mg/dL High 0-149 [facility] Comment on above: TRIG ATP III [...] aPTT Coag (PPP) [Time] 29.3 s 25.1-36.5 [facility] Comment on above: A hematocrit value g reater than 55% may lead to inaccurate results in coagulation testing. Patients having hematocrit values >55% require a special collection tube for coagulation studies. Please contact the laboratory at [phone] for redraw instructions. Basophils Auto (Bld) [#/Vol] Ordered By: Edgar Valenzuela on 09-12-2023 Basophils (Bld) [#/Vol] 0.1 10*3/uL 0.0-0.2 [facility] Basophils/100 WBC Auto (Bld) Ordered By: Edgar Valenzuela on 09-12-2023 Basophils/100 WBC (Bld) 0.9 % . [facility] Calcium [Mass/volume] in Ser um or PlasmaOrdered By: Edgar Valenzuela on 09-12-2023 Calcium [Mass/Vol] 10.5 mg/dL High 8.6-10.3 [facility] Carbon dioxide, total [Moles /volume] in Serum or PlasmaOrdered By: Edgar Valenzuela on 09-12-2023 CO2 [Moles/Vol] 25.0 mmol/L 21.0-31.0 [facility] Chloride [Moles/volume] in S elliot or PlasmaOrdered By: Edgar Valenzuela on 09-12-2023 Chloride [Moles/Vol] 102 mmol/L 98-107 [facility] Creatine kinase [Enzymatic a ctivity/volume] in Serum or PlasmaOrdered By: Edgar Valenzuela on 09-12-2023 CK [Catalytic activity/Vol] 45 U/L 30-223 [facility] Creatinine [Mass/volume] in Serum or PlasmaOrdered By: Edgar Valenzuela on 09-12-2023 Creatinine [Mass/Vol] 0.84 mg/dL 0.60-1.20 [facility] Eosinophils Auto (Bld) [#/Vo l]Ordered By: Edgar Valenzuela on 09-12-2023 Eosinophils (Bld) [#/Vol] 0.2 10*3/uL 0.0-0.45 [facility] Eosinophils/100 WBC Auto (Bl d)Ordered By: Edgar Valenzuela on 09-12-2023 Eosinophils/100 WBC (Bld) 1.7 % . [facility] Erythrocyte distribution wid th Auto (RBC) [Ratio]Ordered By: Edgar Valenzuela on 09-12-2023 Erythrocyte distribution width (RBC) [Ratio] 12.7 % 11.9-15.3 [facility] Glucose [Mass/volume] in Ser um or PlasmaOrdered By: Edgar Valenzuela on 09-12-2023 Glucose [Mass/Vol] 150 mg/dL High 70-100 [facility] Comment on above: ADA recommended refe rence rangeRandom Glucose Reference Range is dependent on time and content of last meal. Glucose of more than 200 mg/dL in a nonstressed, ambulatory subject supports the diagnosis of Diabetes Mellitus. HbA1c HPLC (Bld) [Mass fract ion]on 09-12-2023 HbA1c (Bld) [Mass fraction] 6.6 % [facility] Hematocrit Auto (Bld) [Volum e fraction]Ordered By: Edgar Valenzuela on 09-12-2023 Hematocrit (Bld) [Volume fraction] 49.3 % High 34.0-46.4 [facility] Hemoglobin [Mass/volume] in BloodOrdered By: Edgar Valenzuela on 09-12-2023 Hemoglobin (Bld) [Mass/Vol] 16.9 g/dL High 11.8-15.4 [facility] INR in Platelet poor plasma by Coagulation assayOrdered By: Edgar Valenzuela on 09-12-2023 INR Coag (PPP) [Relative time] 1.1 {INR} [facility] Comment on above: INR Therapeutic Rang [...] RBC Auto (Bld) [#/Vol] 9.8 10*3/uL 3.8-11.6 [facility] Lymphocytes Auto (Bld) [#/Vo l]Ordered By: Edagr Valenzuela on 09-12-2023 Lymphocytes (Bld) [#/Vol] 2.0 10*3/uL 1.00-4.8 [facility] Lymphocytes/100 WBC Auto (Bl d)Ordered By: Edgar Valenzuela on 09-12-2023 Lymphocytes/100 WBC (Bld) 20.2 % . [facility] MCH Auto (RBC) [Entitic mass ]Ordered By: Edgar Valenzuela on 09-12-2023 MCH (RBC) [Entitic mass] 32.7 pg 24.7-34.3 [facility] MCHC Auto (RBC) [Mass/Vol]Or dered By: Edgar Valenzuela on 09-12-2023 MCHC (RBC) [Mass/Vol] 34.2 g/dL 32.0-35.0 [facility] MCV Auto (RBC) [Entitic vol] Ordered By: Edgar Valenzuela on 09-12-2023 MCV (RBC) [Entitic vol] 95.6 fL 80-100 [facility] Monocyte distribution width [Entitic volume] in Blood by AutomatedOrdered By: Edgar Valenzuela on 09-12-2023 Monocyte distribution width Auto (Bld) [Entitic vol] 19.90 % 0.00-20.00 [facility] Monocytes Auto (Bld) [#/Vol] Ordered By: Edgar Valenzuela on 09-12-2023 Monocytes (Bld) [#/Vol] 0.6 10*3/uL 0.0-0.8 [facility] Monocytes/100 WBC Auto (Bld) Ordered By: Edgar Valenzuela on 09-12-2023 Monocytes/100 WBC (Bld) 5.9 % . [facility] Natriuretic peptide B [Mass/ Vol]Ordered By: Edgar Valenzuela on 09-12-2023 Natriuretic peptide B (Bld) [Mass/Vol] 112.0 pg/mL High 5-100 [facility] Neutrophils Auto (Bld) [#/Vo l]Ordered By: Edgar Valenzuela on 05-16-2024 Neutrophils (Bld) [#/Vol] 7.0 10*3/uL 1.8-7.7 [facility] Neutrophils/100 WBC Auto (Bl d)Ordered By: Edgar Valenzuela on 09-12-2023 Neutrophils/100 WBC (Bld) 71.3 % . [facility] No Panel InformationOrdered By: Edgar Valenzuela on 09-12-2023 Estimated GFR (CKD-EPI) > 60.0 mL/Min [facility] Creatinine Clearance (Chem 73.11 [facility] No Panel Informationon 09-11 Bedside Glucose 151 [facility] Nucleated erythrocytes [Pres ence] in Blood by Automated countOrdered By: Edgar Valenzuela on 09-12-2023 Nucleated RBC Auto Ql (Bld) 0.2 /100{WBC} 0-0.5 [facility] Platelet mean volume Auto (B ld) [Entitic vol]Ordered By: Edgar Valenzuela on 09-12-2023 Platelet mean volume (Bld) [Entitic vol] 9.5 fL 6.3-10.7 [facility] Platelets Auto (Bld) [#/Vol] Ordered By: Edgar Valenzuela on 09-12-2023 Platelets (Bld) [#/Vol] 195 10*3/uL 150-450 [facility] Potassium [Moles/volume] in Serum or PlasmaOrdered By: Edgar Valenzuela on 09-12-2023 Potassium [Moles/Vol] 4.0 mmol/L 3.5-5.1 [facility] Prothrombin time (PT)Ordered By: Edgar Valenzuela on 09-12-2023 PT Coag (PPP) [Time] 12.7 s 9.0-12.9 [facility] Comment on above: A hematocrit value g reater than 55% may lead to inaccurate results in coagulation testing. Patients having hematocrit values >55% require a special collection tube for coagulation studies. Please contact the laboratory at [phone] for redraw instructions. RBC Auto (Bld) [#/Vol]Ordere d By: Edgar Valenzuela on 09-12-2023 RBC (Bld) [#/Vol] 5.16 10*6/uL High 3.60-5.[address] [facility] Serum or plasma anion gap de terminationOrdered By: Edgar Valenzuela on 09-12-2023 Anion gap [Moles/Vol] 15.0 mmol/L 6.0-15.0 [facility] Sodium [Moles/volume] in Ser um or PlasmaOrdered By: Edgar Valenzuela on 09-12-2023 Sodium [Moles/Vol] 138 mmol/L 136-145 [facility] Troponin I.cardiac [Mass/vol ume] in Serum or Plasma by Detection limit <= 0.01 ng/Ordered By: Edgar Valenzuela on 09-12-2023 Troponin I.cardiac DL <= 0.01 ng/mL [Mass/Vol] 7.3 pg/mL 0.0-15.0 [facility] Urea nitrogen [Mass/volume] in Serum or PlasmaOrdered By: Edgar Valenzuela on 09-12-2023 Urea nitrogen [Mass/Vol] 11 mg/dL 7-25 [facility] WBC Auto (Bld) [#/Vol]Ordere d By: Edgar Valenzuela on 09-12-2023 WBC (Bld) [#/Vol] 9.8 10*3/uL 3.8-11.6 [facility] Alanine aminotransferase [En zymatic activity/volume] in Serum or PlasmaOrdered By: Angelique Russell on 09-05-2023 ALT [Catalytic activity/Vol] 19 U/L 7-52 [facility] Albumin [Mass/volume] in Ser um or Plasma by Bromocresol green (BCG) dye binding methoOrdered By: Angelique Russell on 09-05-2023 Albumin BCG dye [Mass/Vol] 4.3 g/dL 3.5-5.7 [facility] Alkaline phosphatase [Enzyma tic activity/volume] in Serum or PlasmaOrdered By: Angelique Russell on 09-05-2023 ALP [Catalytic activity/Vol] 81 U/L 34-104 [facility] Aspartate aminotransferase [ Enzymatic activity/volume] in Serum or PlasmaOrdered By: Angelique Russell on 09-05-2023 AST [Catalytic activity/Vol] 26 U/L 13-39 [facility] Bilirubin.total [Mass/volume ] in Serum or PlasmaOrdered By: Angelique Russell on 09-05-2023 Bilirubin [Mass/Vol] 0.7 mg/dL 0.3-1.0 [facility] Calcium [Mass/volume] in Ser um or PlasmaOrdered By: Angelique Russell on 09-05-2023 Calcium [Mass/Vol] 10.2 mg/dL 8.6-10.3 [facility] Carbon dioxide, total [Moles /volume] in Serum or PlasmaOrdered By: Angelique Russell on 09-05-2023 CO2 [Moles/Vol] 28.6 mmol/L 21.0-31.0 [facility] Chloride [Moles/volume] in S elliot or PlasmaOrdered By: Angelique Russell on 09-05-2023 Chloride [Moles/Vol] 102 mmol/L 98-107 [facility] Cholesterol [Mass/volume] in Serum or PlasmaOrdered By: Angelique Russell on 09-05-2023 Cholesterol [Mass/Vol] 143 mg/dL 140-200 [facility] Comment on above: Chol less than 200 m g/dl low riskChol 201-239 mg/dl borderline riskChol 240 mg/dl and greater high risk Cholesterol in LDL Calc [Mas s/Vol]Ordered By: Angelique Russell on 09-05-2023 Cholesterol in LDL [Mass/Vol] 62 mg/dL 0-100 [facility] Comment on above: LDL ATP III CLASSIFI CATIONLDL less than 100 mg/dL OptimalLDL 100-129 mg/dL Near or above optimalLDL 130-159 mg/dL Borderline highLDL 160-189 mg/dL HighLDL greater than 189 mg/dL Very high Cholesterol in VLDL Calc [Ma ss/Vol]Ordered By: Angelique Russell on 09-05-2023 Cholesterol in VLDL [Mass/Vol] 51 mg/dL [facility] Creatinine [Mass/volume] in Serum or PlasmaOrdered By: Angelique Russell on 09-05-2023 Creatinine [Mass/Vol] 0.91 mg/dL 0.60-1.20 [facility] Creatinine [Mass/volume] in UrineOrdered By: Angelique Russell on 09-05-2023 Creatinine (U) [Mass/Vol] 118.0 mg/dL [facility] Comment on above: No reference range e stablished Globulin Calc (S) [Mass/Vol] Ordered By: Angelique Russell on 09-05-2023 Globulin (S) [Mass/Vol] 2.7 g/dL [facility] Glucose [Mass/volume] in Ser um or PlasmaOrdered By: Angelique Russell on 09-05-2023 Glucose [Mass/Vol] 197 mg/dL High 70-100 [facility] Comment on above: ADA recommended refe rence rangeRandom Glucose Reference Range is dependent on time and content of last meal. Glucose of more than 200 mg/dL in a nonstressed, ambulatory subject supports the diagnosis of Diabetes Mellitus. Microalbumin [Mass/volume] i n UrineOrdered By: Angelique Russell on 09-05-2023 Albumin DL <= 20 mg/L (U) [Mass/Vol] 18.4 mg/dL High 0.0-1.8 [facility] No Panel InformationOrdered By: Angelique Russell on 09-05-2023 Estimated GFR (CKD-EPI) > 60.0 mL/Min [facility] Creatinine Clearance (Chem N/A [facility] Potassium [Moles/volume] in Serum or PlasmaOrdered By: Angelique Russell on 09-05-2023 Potassium [Moles/Vol] 4.2 mmol/L 3.5-5.1 [facility] Protein [Mass/volume] in Ser um or PlasmaOrdered By: Angelique Russell on 09-05-2023 Protein [Mass/Vol] 7.0 g/dL 6.4-8.9 [facility] Serum or plasma albumin/glob ulin mass ratioOrdered By: Angelique Russell on 09-05-2023 Albumin/Globulin [Mass ratio] 1.6 {ratio} [facility] Serum or plasma anion gap de terminationOrdered By: Angelique Russell on 09-05-2023 Anion gap [Moles/Vol] 13.6 mmol/L 6.0-15.0 [facility] Serum or plasma high density lipoprotein (HDL) cholesterol measurementOrdered By: Angelique Russell on 09-05-2023 Cholesterol in HDL [Mass/Vol] 30 mg/dL 23-92 [facility] Comment on above: HDL CHOL ATP-III CLA SSIFICATION Cardiovascular RiskHDL > or equal to 60 mg/dL LOWHDL < 40 mg/dL HIGH Serum or plasma total choles terol/high density lipoprotein (HDL) cholesterol mass ratOrdered By: Angelique Russell on 09-05-2023 Cholesterol.total/Monica sterol in HDL [Mass ratio] 4.8 {ratio} <5.0 [facility] Sodium [Moles/volume] in Ser um or PlasmaOrdered By: Angelique Russell on 09-05-2023 Sodium [Moles/Vol] 140 mmol/L 136-[facility] Triglyceride [Mass/volume] i n Serum or PlasmaOrdered By: Angelique Russell on 09-05-2023 Triglyceride [Mass/Vol] 256 mg/dL High 0-149 [facility] Comment on above: TRIG ATP III CLASSIF ICATIONTRIG less than 150 mg/dL NormalTRIG 150-199 mg/dL Borderline highTRIG 200-500 mg/dL High TRIG greater than 500 mg/dL Very highStandard traceable to the Center for Disease Conrtrol and Prevention (CDC) test method. Urea nitrogen [Mass/volume] in Serum or PlasmaOrdered By: Angelique Russell on 09-05-2023 Urea nitrogen [Mass/Vol] 12 mg/dL 11-20 [facility] Urine microalbumin/creatinin e mass ratioOrdered By: Angelique Russell on 09-05-2023 Albumin/Creatinine DL <= 20 mg/L (U) [Mass ratio] 155.0 mg/g High 0.0-30.0 [facility] Comment on above: 30-300 mg/g indicate s an increased risk for diabetic nephropathy. Greater than 300 mg/g is consistent with clinical nephropathy. (Am. J. Kidney Disease 1995, 25:107) Vitamin B12 ser/plasOrdered By: Angelique Russell on 09-05-2023 Cobalamin (Vitamin B12) [Mass/Vol] 255 pg/mL 180-914 [facility] Laboratory - Hematology and Cell countson 06-12-2023 HbA1c (Bld) [Mass fraction] 7.2 % [facility] No Panel Informationon 06-12 Bedside Glucose 197 [facility] A1C HEMOGLOBINon 01-07-2023 HbA1c (Bld) [Mass fraction] 6.3 % [facility] Other Glucose - [facility]ING[facility] Glucose [Mass/Vol] 196 mg/dL [facility] Other HbA1c (Bld) [Mass fraction]o n 01-07-2023 A1C HEMOGLOBIN [facility] Other A1C HEMOGLOBINon 09-27-2022 HbA1c (Bld) [Mass fraction] 6.6 % [facility] Other Glucose - FINGER STICKon Glucose [Mass/Vol] 128 mg/dL [facility] Other HbA1c (Bld) [Mass fraction]o n 09-27-2022 A1C HEMOGLOBIN [facility] Other A1C HEMOGLOBINon 06-18-2022 HbA1c (Bld) [Mass fraction] 7.1 % [facility] Other Glucose - FINGER STICKon Glucose [Mass/Vol] 219 mg/dL [facility] Other HbA1c (Bld) [Mass fraction]o n 06-18-2022 A1C HEMOGLOBIN [facility] Other A1C HEMOGLOBINon 01-09-2022 HbA1c (Bld) [Mass fraction] 7.7 % [facility] Other Glucose - FINGER [facility]ICKon Glucose [Mass/Vol] 242 mg/dL [facility] Other HbA1c (Bld) [Mass fraction]o n 01-09-2022 A1C HEMOGLOBIN [facility] Other Consultation Noteon 12-26-19 22 Consultation Note [id number]: 127 Normal [facility] Insurance Correspondence Off iceon 12-20-2021 Insurance Correspondence Office [id number]: 127 Normal [facility] Urine culture routineOrdered By: Milo Watters on 12-19-2021 Bacteria identified Cx Nom (U) Zeny albicans [facility] Albumin [Mass/volume] in Ser um or PlasmaOrdered By: Milo Watters on 12-17-2021 Albumin [Mass/Vol] 3.4 g/dL 3.2-5.5 [facility] Automated erythrocytes count in urine sediment (number/area)Ordered By: Milo Watters on 12-17-2021 RBC Auto (Urine sed) [#/Area] 3-4 [HPF] 0-4 [facility] Automated leukocytes count i n urine sediment (number/area)Ordered By: Milo Watters on 12-17-2021 WBC Auto (Urine sed) [#/Area] 50-100 [HPF] 0-4 [facility] Automated urine hyaline cast s count (number/volume)Ordered By: Milo Watters on 12-17-2021 Hyaline casts Auto (U) [#/Vol] None seen [LPF] 0-1 [facility] Basophils Auto (Bld) [#/Vol] Ordered By: Milo Watters on 12-17-2021 Basophils (Bld) [#/Vol] 0.1 10*3/uL 0.0-0.2 [facility] Basophils/100 WBC Auto (Bld) Ordered By: Milo Watters on 12-17-2021 Basophils/100 WBC (Bld) 0.5 % . [facility] Bilirubin Test strip Ql (U)O rdered By: iMlo Watters on 12-17-2021 Bilirubin Ql (U) Negative Negative [facility] Blood hemoglobin measurement (mass/volume)Ordered By: Milo Watters on 12-17-2021 Hemoglobin (Bld) [Mass/Vol] 16.1 g/dL 11.8-15.4 [facility] Blood leukocytes automated c ount (number/volume)Ordered By: Milo Watters on 12-17-2021 WBC (Bld) [#/Vol] 10.7 10*3/uL 4.5-11.[address] [facility] Casts typing in urine sedime nt by light microscopyOrdered By: Milo Watters on 12-17-2021 Casts LM Nom (Urine sed) None seen [LPF] None Seen [facility] Color Auto (U)Ordered By: Jonh Watters on 12-17-2021 Color (U) Yellow Yellow [facility] Creatinine and Glomerular fi ltration rate.predicted panel (S/P/Bld)Ordered By: Milo Watters on 12-17-2021 Creatinine [Mass/Vol] 0.89 mg/dL 0.44-1.03 [facility] Eosinophils Auto (Bld) [#/Vo l]Ordered By: Milo Watters on 12-17-2021 Eosinophils (Bld) [#/Vol] 0.1 10*3/uL 0.0-0.45 [facility] Eosinophils/100 WBC Auto (Bl d)Ordered By: Milo Watters on 12-17-2021 Eosinophils/100 WBC (Bld) 1.0 % . [facility] Erythrocyte distribution wid th Auto (RBC) [Ratio]Ordered By: Milo Watters on 12-17-2021 Erythrocyte distribution width (RBC) [Ratio] 13.1 % 11.9-15.3 [facility] Estimated glomerular filtrat ion rate (GFR) non- AmericanOrdered By: Mlio Watters on 12-17-2021 GFR/1.73 sq M.predicted among non-blacks MDRD (S/P/Bld) [Vol rate/Area] > 60 mL/Min [facility] Globulin Calc (S) [Mass/Vol] Ordered By: Milo Watters on 12-17-2021 Globulin (S) [Mass/Vol] 3.9 g/dL [facility] Hematocrit Auto (Bld) [Volum e fraction]Ordered By: Milo Watters on 12-17-2021 Hematocrit (Bld) [Volume fraction] 48.5 % 34.0-46.4 [facility] Ketones Auto test strip (U) [Mass/Vol]Ordered By: Milo Watters on 12-17-2021 Ketones (U) [Mass/Vol] Negative Negative [facility] - [facility] and Cell countsOrdered By: Milo Watters on 12-17-2021 Nucleated RBC/100 WBC (Bld) [Ratio] 0.1 % 0-0.5 [facility] Lymphocytes Auto (Bld) [#/Vo l]Ordered By: Milo Watters on 12-17-2021 Lymphocytes (Bld) [#/Vol] 1.5 10*3/uL 1.00-4.8 [facility] Lymphocytes/100 WBC Auto (Bl d)Ordered By: Milo Watters on 12-17-2021 Lymphocytes/100 WBC (Bld) 14.2 % . [facility] MCH Auto (RBC) [Entitic mass ]Ordered By: Milo Watters on 12-17-2021 MCH (RBC) [Entitic mass] 31.4 pg 24.7-34.3 [facility] MCHC Auto (RBC) [Mass/Vol]Or dered By: Milo Watters on 12-17-2021 MCHC (RBC) [Mass/Vol] 33.2 g/dL 32.0-35.0 [facility] MCV Auto (RBC) [Entitic vol] Ordered By: Milo Watters on 12-17-2021 MCV (RBC) [Entitic vol] 94.6 fL 80-100 [facility] Monocytes Auto (Bld) [#/Vol] Ordered By: Milo Watters on 12-17-2021 Monocytes (Bld) [#/Vol] 0.8 10*3/uL 0.0-0.8 [facility] Monocytes/100 WBC Auto (Bld) Ordered By: Milo Watters on 12-17-2021 Monocytes/100 WBC (Bld) 7.5 % . [facility] Neutrophils Auto (Bld) [#/Vo l]Ordered By: Milo Watters on 12-17-2021 Neutrophils (Bld) [#/Vol] 8.2 10*3/uL 1.8-7.7 [facility] Neutrophils/100 WBC Auto (Bl d)Ordered By: Milo Watters on 12-17-2021 Neutrophils/100 WBC (Bld) 76.8 % . [facility] Nitrite Test strip Ql (U)Ord ered By: Milo Watters on 12-17-2021 Nitrite Ql (U) Negative Negative [facility] No Panel InformationOrdered By: Milo Watters on 12-17-2021 Estimated GFR () > 60 mL/Min [facility] Comment on above: GFR estimated refere nce range: According to KDOQI guidelines, <60 ml/min/1.73m2 is sufficient to diagnose a patient with chronic kidney disease. Pharmacy Creatinine Clearance (Chem 70.55 [facility] Platelet mean volume Auto (B ld) [Entitic vol]Ordered By: Milo Watters on 12-17-2021 Platelet mean volume (Bld) [Entitic vol] 8.7 fL 6.3-10.7 [facility] Platelets Auto (Bld) [#/Vol] Ordered By: Milo Watters on 12-17-2021 Platelets (Bld) [#/Vol] 239 10*3/uL 150-450 [facility] Protein Auto test strip (U) [Mass/Vol]Ordered By: Milo Watters on 12-17-2021 Protein (U) [Mass/Vol] Trace mg/dL Negative [facility] Protein [Mass/volume] in Ser um or PlasmaOrdered By: Milo Watters on 12-17-2021 Protein [Mass/Vol] 7.3 g/dL 6.1-7.9 [facility] RBC Auto (Bld) [#/Vol]Ordere d By: Milo Watters on 12-17-2021 RBC (Bld) [#/Vol] 5.13 10*6/uL 3.60-5.[address] [facility] Serum or plasma alanine tucker otransferase measurement without P-5'-P (enzymatic activiOrdered By: Milo Watters on 12-17-2021 ALT No additional P-5'-P [Catalytic activity/Vol] 38 U/L 10-60 [facility] Serum or plasma albumin/glob ulin mass ratioOrdered By: Milo Watters on 12-17-2021 Albumin/Globulin [Mass ratio] 0.9 {ratio} [facility] Serum or plasma alkaline yue sphatase measurement (enzymatic activity/volume)Ordered By: Milo Watters on 12-17-2021 ALP [Catalytic activity/Vol] 109 U/L 32-92 [facility] Serum or plasma aspartate am inotransferase measurement (enzymatic activity/volume)Ordered By: Milo Watters on 12-17-2021 AST [Catalytic activity/Vol] 43 U/L 10-42 [facility] Serum or plasma calcium steve urement (mass/volume)Ordered By: Milo Watters on 12-17-2021 Calcium [Mass/Vol] 10.0 mg/dL 8.2-10.2 [facility] Serum or plasma chloride coleman surement (moles/volume)Ordered By: Milo Watters on 12-17-2021 Chloride [Moles/Vol] 102 mmol/L 95-114 [facility] Serum or plasma glucose steve urement (mass/volume)Ordered By: Milo Watters on 12-17-2021 Glucose [Mass/Vol] 231 mg/dL 70-100 [facility] Comment on above: ADA recommended refe rence range Random Glucose Reference Range is dependent on time and content of last meal. Glucose of more than 200 mg/dL in a nonstressed, ambulatory subject supports the diagnosis of Diabetes Mellitus. Serum or plasma potassium me asurement (moles/volume)Ordered By: OSORIO WHITE on 12-17-2021 Potassium [Moles/Vol] 3.6 mmol/L 3.5-5.1 [facility] Serum or plasma sodium measu rement (moles/volume)Ordered By: Milo Watters on 12-17-2021 Sodium [Moles/Vol] 137 mmol/L 136-146 [facility] Serum or plasma total biliru bin measurement (mass/volume)Ordered By: Milo Watters on 12-17-2021 Bilirubin [Mass/Vol] 0.8 mg/dL 0.3-1.2 [facility] Serum or plasma total carbon dioxide measurement (moles/volume)Ordered By: Milo Watters on 12-17-2021 CO2 [Moles/Vol] 24.6 mmol/L 22.0-30.0 [facility] Serum or plasma urea nitroge n measurement (mass/volume)Ordered By: Milo Watters on 12-17-2021 Urea nitrogen [Mass/Vol] 8 mg/dL 01-19 [facility] Specific gravity Auto test s trip (U) [Rel density]Ordered By: Milo Watters on 12-17-2021 Specific gravity (U) [Rel density] 1.030 1.001-1.03 0 [facility] Squamous epithelial cells de tection in urine sediment by light microscopyOrdered By: Milo Watters on 12-17-2021 Epithelial cells.squamous LM Ql (Urine sed) None seen [HPF] 0-2 [facility] Urine bacteria detection by automated methodOrdered By: Milo Watters on 12-17-2021 Bacteria Auto Ql (U) Rare None Seen [facility] Urine clarity by refractomet ry automatedOrdered By: Milo Watters on 12-17-2021 Clarity Refractometry automated (U) Clear Clear [facility] Urine glucose measurement by automated test strip (mass/volume)Ordered By: Milo Watters on 12-17-2021 Glucose Auto test strip (U) [Mass/Vol] >=1000 mg/dL Normal [facility] Urine hemoglobin detection b y automated test stripOrdered By: Milo Watters on 12-17-2021 Hemoglobin Auto test strip Ql (U) 1+ Negative [facility] Urine leukocyte esterase det ection by automated test stripOrdered By: Milo Watters on 12-17-2021 Leukocyte esterase Auto test strip Ql (U) 3+ Negative [facility] Urobilinogen Auto test strip (U) [Mass/Vol]Ordered By: Milo Watters on 12-17-2021 Urobilinogen (U) [Mass/Vol] Normal mg/dL Normal [facility] Yeast detection in urine sed iment by light microscopyOrdered By: Milo Watters on 12-17-2021 Yeast LM Ql (Urine sed) 3+ [HPF] None Seen [facility] pH Auto test strip (U)Ordere d By: Milo Watters on 12-17-2021 pH (U) 6.0 [pH] 5.0-9.0 [facility] Bacterial blood cultureOrder ed By: Arleen Stephen on 12-14-2021 Bacteria identified Cx Nom (Bld) NO GROWTH 5 DAYS [facility] Basophils Auto (Bld) [#/Vol] Ordered By: Walter Montgomery on 12-13-2021 Basophils (Bld) [#/Vol] 0.0 10*3/uL 0.0-0.2 [facility] Basophils/100 WBC Auto (Bld) Ordered By: Walter Montgomery on 12-13-2021 Basophils/100 WBC (Bld) 0.1 % . [facility] Blood hemoglobin measurement (mass/volume)Ordered By: Walter Montgomery on 12-13-2021 Hemoglobin (Bld) [Mass/Vol] 14.2 g/dL 11.8-15.4 [facility] Blood leukocytes automated c ount (number/volume)Ordered By: Walter Montgomery on 12-13-2021 WBC (Bld) [#/Vol] 9.4 10*3/uL 4.5-11.0 [facility] Consultation Noteon 12-14-19 Consultation Note [id number]: 127 Normal [facility] Creatinine and Glomerular fi ltration rate.predicted panel (S/P/Bld)Ordered By: Walter Montgomery on 12-13-2021 Creatinine [Mass/Vol] 0.75 mg/dL 0.44-1.03 [facility] Direct bilirubin measurement Ordered By: Walter Montgomery on 12-13-2021 Bilirubin.direct [Mass/Vol] 0.2 mg/dL 0.0-0.4 [facility] Eosinophils Auto (Bld) [#/Vo l]Ordered By: Walter Montgomery on 12-13-2021 Eosinophils (Bld) [#/Vol] 0.0 10*3/uL 0.0-0.45 [facility] Eosinophils/100 WBC Auto (Bl d)Ordered By: Walter Montgomery on 12-13-2021 Eosinophils/100 WBC (Bld) 0.0 % . [facility] Erythrocyte distribution wid th Auto (RBC) [Ratio]Ordered By: Walter Montgomery on 12-13-2021 Erythrocyte distribution width (RBC) [Ratio] 12.9 % 11.9-15.3 [facility] Estimated glomerular filtrat ion rate (GFR) non- AmericanOrdered By: Walter Montgomery on 12-13-2021 GFR/1.73 sq M.predicted among non-blacks MDRD (S/P/Bld) [Vol rate/Area] > 60 mL/Min [facility] Glucose Glucometer (BldC) [M ass/Vol]Ordered By: Wilmer Vance on 12-13-2021 Glucose [Mass/Vol] 230 mg/dL [facility] Comment on above: Random Glucose Refer ence Range is dependent on time and content of last meal. Glucose of more than 200 mg/dL in a nonstressed, ambulatory subject supports the diagnosis of Diabetes Mellitus. Hematocrit Auto (Bld) [Volum e fraction]Ordered By: Walter Montgomery on 12-13-2021 Hematocrit (Bld) [Volume fraction] 41.9 % 34.0-46.4 [facility] Laboratory - Hematology and Cell countsOrdered By: Walter Montgomery on 12-13-2021 Nucleated RBC/100 WBC (Bld) [Ratio] 0.0 % 0-0.5 [facility] Lymphocytes Auto (Bld) [#/Vo l]Ordered By: Walter Montgomery on 12-13-2021 Lymphocytes (Bld) [#/Vol] 0.7 10*3/uL 1.00-4.8 [facility] Lymphocytes/100 WBC Auto (Bl d)Ordered By: Walter Montgomery on 12-13-2021 Lymphocytes/100 WBC (Bld) 7.7 % . [facility] MCH Auto (RBC) [Entitic mass ]Ordered By: Walter Montgomery on 12-13-2021 MCH (RBC) [Entitic mass] 32.2 pg 24.7-34.3 [facility] MCHC Auto (RBC) [Mass/Vol]Or dered By: Walter Montgomery on 12-13-2021 MCHC (RBC) [Mass/Vol] 33.9 g/dL 32.0-35.0 [facility] MCV Auto (RBC) [Entitic vol] Ordered By: Walter Montgomery on 12-13-2021 MCV (RBC) [Entitic vol] 95.1 fL 80-100 [facility] Monocytes Auto (Bld) [#/Vol] Ordered By: Walter Montgomery on 12-13-2021 Monocytes (Bld) [#/Vol] 0.2 10*3/uL 0.0-0.8 [facility] Monocytes/100 WBC Auto (Bld) Ordered By: Walter Montgomery on 12-13-2021 Monocytes/100 WBC (Bld) 1.8 % . [facility] Neutrophils Auto (Bld) [#/Vo l]Ordered By: Walter Montgomery on 12-13-2021 Neutrophils (Bld) [#/Vol] 8.5 10*3/uL 1.8-7.7 [facility] Neutrophils/100 WBC Auto (Bl d)Ordered By: Walter Montgomery on 12-13-2021 Neutrophils/100 WBC (Bld) 90.4 % . [facility] No Panel InformationOrdered By: Walter Montgomery on 12-13-2021 Estimated GFR () > 60 mL/Min [facility] Comment on above: GFR estimated refere nce range: According to KDOQI guidelines, <60 ml/min/1.73m2 is sufficient to diagnose a patient with chronic kidney disease. Pharmacy Creatinine Clearance (Chem 84.79 [facility] Platelet mean volume Auto (B ld) [Entitic vol]Ordered By: Walter Montgomery on 12-13-2021 Platelet mean volume (Bld) [Entitic vol] 9.3 fL 6.3-10.7 [facility] Platelets Auto (Bld) [#/Vol] Ordered By: Walter Montgomery on 12-13-2021 Platelets (Bld) [#/Vol] 178 10*3/uL 150-450 [facility] RBC Auto (Bld) [#/Vol]Ordere d By: Walter Montgomery on 12-13-2021 RBC (Bld) [#/Vol] 4.41 10*6/uL 3.60-5.[address] [facility] Serum or plasma chloride coleman surement (moles/volume)Ordered By: Walter Montgomery on 12-13-2021 Chloride [Moles/Vol] 105 mmol/L 95-114 [facility] Serum or plasma non-glucuron idated bilirubin measurement (mass/volume)Ordered By: Walter Montgomery on 12-13-2021 Bilirubin.indirect [Mass/Vol] 0.5 mg/dL [facility] Serum or plasma potassium me asurement (moles/volume)Ordered By: Walter Montgomery on 12-13-2021 Potassium [Moles/Vol] 4.4 mmol/L 3.5-5.1 [facility] Serum or plasma sodium measu rement (moles/volume)Ordered By: Walter Montgomery on 12-13-2021 Sodium [Moles/Vol] 137 mmol/L 136-146 [facility] Serum or plasma total biliru bin measurement (mass/volume)Ordered By: Walter Montgomery on 12-13-2021 Bilirubin [Mass/Vol] 0.7 mg/dL 0.3-1.2 [facility] Serum or plasma total carbon dioxide measurement (moles/volume)Ordered By: Walter Montgomery on 12-13-2021 CO2 [Moles/Vol] 24.6 mmol/L 22.0-30.0 [facility] Serum or plasma urea nitroge n measurement (mass/volume)Ordered By: Walter Montgomery on 12-13-2021 Urea nitrogen [Mass/Vol] 12 mg/dL 9 [facility] Activated partial thrombopla stin time (aPTT) in platelet poor plasma by coagulation aOrdered By: Walter Montgomery on 12-12-2021 aPTT Coag (PPP) [Time] 30.0 s 25.1-36.5 [facility] Laboratory - CoagulationOrde red By: Walter Montgomery on 12-12-2021 PT Coag (PPP) [Time] 14.1 s 9.0-12.9 [facility] Platelet poor plasma interna tional normalized ratio (INR) by coagulation assay (relatOrdered By: Walter Montgomery on 12-12-2021 INR Coag (PPP) [Relative time] 1.3 {INR} [facility] Comment on above: INR Therapeutic Rang [...] 12-12-2021 ALP [Catalytic activity/Vol] 92 U/L 32-92 [facility] Serum or plasma aspartate am inotransferase measurement (enzymatic activity/volume)Ordered By: Walter Montgomery on 12-12-2021 AST [Catalytic activity/Vol] 22 U/L 10-42 [facility] Albumin [Mass/volume] in Ser um or PlasmaOrdered By: Arleen Stephen on 12-11-2021 Albumin [Mass/Vol] 2.9 g/dL 3.2-5.5 [facility] Globulin Calc (S) [Mass/Vol] Ordered By: Arleen Stephen on 12-11-2021 Globulin (S) [Mass/Vol] 3.0 g/dL [facility] No Panel InformationOrdered By: Arleen Stephen on 12-11-2021 Bedside Glucose Comment Glu2: cleaned meter [facility] Protein [Mass/volume] in Ser um or PlasmaOrdered By: Arleen Stephen on 12-11-2021 Protein [Mass/Vol] 5.9 g/dL 6.1-7.9 [facility] Serum or plasma alanine tucker otransferase measurement without P-5'-P (enzymatic activiOrdered By: Arleen Stephen on 12-11-2021 ALT No additional P-5'-P [Catalytic activity/Vol] 16 U/L 10-60 [facility] Serum or plasma albumin/glob ulin mass ratioOrdered By: Arleen Stephen on 12-11-2021 Albumin/Globulin [Mass ratio] 1.0 {ratio} [facility] Serum or plasma calcium steve urement (mass/volume)Ordered By: Arleen Stephen on 12-11-2021 Calcium [Mass/Vol] 9.2 mg/dL 8.2-10.2 [facility] Serum or plasma glucose steve urement (mass/volume)Ordered By: Arleen Stephen on 12-11-2021 Glucose [Mass/Vol] 204 mg/dL 70-100 [facility] Comment on above: ADA recommended refe rence range Random Glucose Reference Range is dependent on time and content of last meal. Glucose of more than 200 mg/dL in a nonstressed, ambulatory subject supports the diagnosis of Diabetes Mellitus. Urine culture routineOrdered By: Tray Randle on 12-11-2021 Bacteria identified Cx Nom (U) Escherichia coli [facility] Automated erythrocytes count in urine sediment (number/area)Ordered By: Tray Morrisarthy on 12-09-2021 RBC Auto (Urine sed) [#/Area] 5-9 [HPF] 0-4 [facility] Automated leukocytes count i n urine sediment (number/area)Ordered By: Tray Jer on 12-09-2021 WBC Auto (Urine sed) [#/Area] 50-100 [HPF] 0-4 [facility] Automated urine hyaline cast s count (number/volume)Ordered By: Trayumu Randle on 12-09-2021 Hyaline casts Auto (U) [#/Vol] None seen [LPF] 0-1 [facility] Bilirubin Test strip Ql (U)O rdered By: Tray Randle on 12-09-2021 Bilirubin Ql (U) Negative Negative [facility] COVID-19 Positive/NegativeOr dered By: Tray Randle on 12-09-2021 SARS-CoV-2 (COVID-19) N gene TEJINDER+probe Ql (Resp) Negative Negative [facility] Comment on above: Testing for SARS-CoV -2 by RT-PCR This test was developed and its performance characteristics determined by [employer] ([employer]) and validated at the [facility]. This test has not been FDA [...] (COVID-19) Ag IA.rapid Ql (Resp) Negative Negative [facility] Comment on above: This is a duplicate Molly SARS Antigen (ANUP) result to be used for statistical tracking purpose only. Casts typing in urine sedime nt by light microscopyOrdered By: Tray Randle on 12-09-2021 Casts LM Nom (Urine sed) None seen [LPF] None Seen [facility] Color Auto (U)Ordered By: Carolina Randle on 12-09-2021 Color (U) Yellow Yellow [facility] Ketones Auto test strip (U) [Mass/Vol]Ordered By: Tray Randle on 12-09-2021 Ketones (U) [Mass/Vol] Negative Negative [facility] Nitrite Test strip Ql (U)Ord ered By: Tray Randle on 12-09-2021 Nitrite Ql (U) Positive Negative [facility] [facility] No Panel InformationOrdered By: Tray Randle on 12-09-2021 SARS Antigen (LFIA) [facility] Protein Auto test strip (U) [Mass/Vol]Ordered By: Tray Randle on 12-09-2021 Protein (U) [Mass/Vol] Negative Negative [facility] Specific gravity Auto test s trip (U) [Rel density]Ordered By: Tray Randle on 12-09-2021 Specific gravity (U) [Rel density] 1.030 1.001-1.03 0 [facility] Squamous epithelial cells de tection in urine sediment by light microscopyOrdered By: Tray Randle on 12-09-2021 Epithelial cells.squamous LM Ql (Urine sed) 10-19 [HPF] 0-2 [facility] Troponin I.cardiac [Mass/vol ume] in Serum or Plasma by High sensitivity methodOrdered By: Arleen Stephen on 12-09-2021 Troponin I.cardiac High sensitivity method [Mass/Vol] 5 pg/mL 0-15 [facility] Urine bacteria detection by automated methodOrdered By: Tray Randle on 12-09-2021 Bacteria Auto Ql (U) 4+ None Seen [facility] Urine clarity by refractomet ry automatedOrdered By: Tray Randle on 12-09-2021 Clarity Refractometry automated (U) Cloudy Clear [facility] Urine glucose measurement by automated test strip (mass/volume)Ordered By: Tray Randle on 12-09-2021 Glucose Auto test strip (U) [Mass/Vol] >=1000 mg/dL Normal [facility] Urine hemoglobin detection b y automated test stripOrdered By: Tray Randle on 12-09-2021 Hemoglobin Auto test strip Ql (U) Trace Negative [facility] Urine lactic acid measuremen tOrdered By: Arleen Stephen on 12-09-2021 Lactate (U) [Moles/Vol] 1.7 mmol/L 0.5-2.2 F [facility] Urine leukocyte esterase det ection by automated test stripOrdered By: Tray Randle on 12-09-2021 Leukocyte esterase Auto test strip Ql (U) 2+ Negative [facility] Urobilinogen Auto test strip (U) [Mass/Vol]Ordered By: Tray Randle on 12-09-2021 Urobilinogen (U) [Mass/Vol] Normal mg/dL Normal [facility] pH Auto test strip (U)Ordere d By: Tray Randle on 12-09-2021 pH (U) 5.5 [pH] 5.0-9.0 [facility] A1C HEMOGLOBINon 10-12-2021 HbA1c (Bld) [Mass fraction] 7.5 % [facility] Other HbA1c (Bld) [Mass fraction]o n 10-12-2021 A1C HEMOGLOBIN [facility] Other A1C HEMOGLOBINon 07-10-2021 HbA1c (Bld) [Mass fraction] 6 % [facility] Other Glucose - FINGER STICKon Glucose [Mass/Vol] 150 mg/dL [facility] Other HbA1c (Bld) [Mass fraction]o n 07-10-2021 A1C HEMOGLOBIN [facility] Other A1C HEMOGLOBINon 03-27-2021 HbA1c (Bld) [Mass fraction] 6.9 % [facility] Other Glucose - FINGER STICKon Glucose [Mass/Vol] 244 mg/dL [facility] Other HbA1c (Bld) [Mass fraction]o n 03-27-2021 A1C HEMOGLOBIN [facility] Other PROGRESSon 02-12-2019 PROGRESS HNO ID: [id number] Author: Clyde (Mello) Armand Service: ? Author Type: Nurse Practitioner [...] - RTC to see Nov 1 at [facility], to ensure complete healing, and further discuss plan of care re pathology results. - call office prn for issues/concerns Clyde Hall APRN.MELLO [facility] 02-11-2019 CNOV Office Visit (GYNML) -------- TAYE GAY ([id number]) 1955 F Date Time Provider Department 02/11/19 2:30 PM CLYDE HALL ([facility]) GYNML During your visit today, we recorded the following information about you: Temperature Pulse Blood pressure Weight 98.7 degrees 99/minute 124/67 93.3 kg Clyde Hall APRN.TIP LENGTH CHECKER 02/12/2019 12:57 PM Signed Taye presents for [...] - RTC to see Nov 1 at [facility], to ensure complete healing, and further discuss plan of care re pathology results. - call office prn for issues/concerns Clyde Hall APRN.TIP LENGTH CHECKER Referring Provider: THEO JOAQUIN [[id number]] Allergies As of Date: 02/11/2019 Noted Allergy [...] Status:Closed by CLYDE HALL CNP on 02/12/19 [facility] CNOVon 01-21-2019 CNOV Office Visit (GYNML) -------- TAYE GAY ([id number]) 1955 F Date Time Provider Department 01/21/19 10:45 AM THEO JOAQUIN GYNML During your visit today, we recorded the following information about you: Temperature Pulse Blood pressure Weight 98.6 degrees 94/minute 111/52 91.4 kg Theo Joaquin MD 01/22/2019 2:06 PM Signed Gynecologic Oncology [facility] Re: Taye Gay CCF#:[id number] 01/21/2019 Dear Nereida Castro: Taye presents for [...] were sent to: Nereida Castro MD (DrC) [address] [address] CC: Jonas Yoder MD (PCP) Referring Provider: THEO JOAQUIN [[id number]] Allergies As of Date: 01/21/2019 Noted Allergy [...] Status:Closed by THEO JOAQUIN MD on 01/22/19 [facility] PROGRESSon 01-08-2019 PROGRESS HNO ID: [id number] Author: Theo Joaquin Service: ? Author Type: Physician Type: Progress Notes Filed: 01/22/2019 2:06 PM Note Text: Gynecologic Oncology [facility] Re: Taye Victor Hugo CCF#:[id number] 01/21/2019 Dear Nereida Castro: Taye presents for [...] were sent to: Nereida Castro MD (DrC) [facility] [address] [address] CC: Jonas Yoder MD (PCP) [facility] CNOVon 01-07-2019 CNOV Office Visit (GYNML) -------- TAYE GAY ([id number]) 1955 F Date Time Provider Department 01/07/19 8:30 AM THEO JOAQUIN GYNML During your visit today, we recorded the following information about you: Temperature Pulse Blood pressure Weight 98.4 degrees 124/minute 103/53 90.2 kg Theo Joaquin MD 01/10/2019 11:17 PM Signed Gynecologic Oncology [facility] Re: Taye Gay CCF#:[id number] 01/07/2019 Dear Nereida Castro: Taye presents for [...] were sent to: Nereida Castro MD (DrC) [address] [address] CC: Jonas Yoder MD (PCP) Referring Provider: THEO JOAQUIN [[id number]] Allergies As of Date: 01/07/2019 Noted Allergy [...] Status:Closed by THEO JOAQUIN MD on 01/10/19 [facility] [place] [facility] CNPN Telephone (GYNML) -------- TAYE GAY ([id number]) 1955 F Date Time Provider Department 01/06/19 SHANTEL REYNOSO (BRENDA) GYN During your visit today, we recorded [...] Appointment made with Dr. Joaquin 01/07 @ 1341 for wound check Patient verbalized understanding and [...] Encounter Status:Closed by SHANTEL REYNOSO on 01/06/19 [facility] PROGRESSon 01-06-2019 PROGRESS HNO ID: [id number] Author: Theo Joaquin Service: ? Author Type: Physician Type: Progress Notes Filed: 01/10/2019 11:17 PM Note Text: Gynecologic Oncology [facility] Re: Taye Victor Hugo CCF#:[id number] 01/07/2019 Dear Nereida Castro: Taye presents for [...] were sent to: Nereida Castro MD (DrC) [address] [address] CC: Jonas Yoder MD (PCP) [facility] ANES Yousuf 01-01-2019 ANES POST HNO ID: [id number] Author: Katharina Durham Service: Anesthesiology Author Type: [...] 01, 2019 TIME: 9:45 AM PAGER/CONTACT #: [facility] ANES PREOPon 01-01-2019 ANES PREOP HNO ID: [id number] Author: Katharina Durham Service: Anesthesiology Author Type: [...] for 7 days Inpatient medications reviewed in EPIC. I have interviewed and examined the patient. [...] 01, 2019 TIME: 7:35 AM PAGER/CONTACT #: [facility] HISTORY PHYSICALon HISTORY PHYSICAL HNO ID: [id number] Author: Petty Shahid (Fel) Service: Gynecology Oncology [...] January 01, 2019 TIME: 7:16 AM PAGER: [facility] OPERATIVE NOon 01-01-2019 OPERATIVE NO HNO ID: [id number] Author: Theo Joaquin Service: Gynecology Oncology Author Type: Physician Type: Operative Report Filed: 01/17/2019 7:16 PM Note Text: OPERATIVE/PROCEDURE REPORT LOG ID: [id number] SURGERY/PROCEDURE DATE: 01/01/2019 INCISION/PROCEDURE START TIME: 8:11 AM INCISION CLOSE/PROCEDURE END TIME: 8:34 AM SURGEON(S)/PROCEDURALIST (S) AND OPERATOR COATING FURNACE(S): Surgeon(s) and Role: * Theo Joaquin - [...] 03, 2019 TIME: 2:24 PM PAGER/CONTACT #: [facility] PT EDon 01-01-2019 PT ED HNO ID: [id number] Author: Patty GalvinRn) BRENDA Bernal Service: Nursing [...] bath Electronically Signed By: Patty Bernal RN [facility] PT ED HNO ID: [id number] Author: Milly GalvinRn) BRENDA Murry Service: Nursing [...] None Electronically Signed By: Milly Murry RN [facility] PT ED HNO ID: [id number] Author: Jelly (Rn) Troy RN Service: Nursing Author Type: Registered Nurse [...] None Electronically Signed By: Jelly Simmons RN [facility] SURGICAL PATHOLOGYon 019 SURGICAL PATHOLOGY Specimen originated from [facility] Specimen #: [id number] Submitting Physician: THEO JOAQUIN MD __ FINAL [...] o'clock. EL/clay 01/01/2019 Gross examination performed at [facility], [address] [place] [address] Date of Report: 01/05/2019 Date of Procedure: 01/01/2019 Date of Receipt: 01/01/2019 Submitted by: THEO JOAQUIN MD Location: [facility] Diagnostic interpretation performed at [facility], [address] [place] [address]. CLIA Number: [id number] Normal [facility] NURSING PROGon 12-24-2018 NURSING PROG HNO ID: [id number] Author: Nataliya (Rn) BRENDA Bell Service: Nursing [...] Bell RN December 24, 2018 3:07 PM [facility] Confirm Blood Typeon 019 ABO/RH(D) Positive [facility] Comment on above: Performed By: #### C ONABO #### [place] [id number] Type and SCR (30D)on 019 ABO/RH(D) Positive [facility] Comment on above: Performed By: #### T SCR30 #### [place] [id number] HOSPon 12-05-2018 HOSP Patient:Taye Gay MRN: Height:5' [...] 51.2 % 12/17/2018 46.0 36.0 Progress Notes ([facility]NAL [facility]): Aracelis Charles, RN, RN 12/22/2018 11:38 AM Signed Pre-op teaching Procedure: vulvar surgery Physician: Location: [facility]: [phone] Date AND Time: 01/01/19 MEDICAL CLEARANCE: No [...] Naprosyn(naproxen) Agrylin NSAIDS Pepto-Bismol Aleve Ecotrin Persantine [place] Excedrin Plaquenil Anacin Heparin Plavix Ascriptin Herbals [...] - IV pain medication after surgery, IV MARKET RESEARCH INTERN if ordered by MD, discharged home with a prescription for PO pain medication, pain management after surgery, side effects of pain medication (including constipation, dizziness, drowsiness, and medication interactions). DVT PROPHYLAXIS - Early ambulation, SCDs, injectable anticoagulants (heparin, lovenox, etc) RESPIRATORY - Incentive spirometer, coughing/deep breathing exercises, ambulation. RETURN TO WORK - As directed by physician, please send any FMLA papers to physician's alumni secretary. SYMPTOMS TO NOTIFY MD - Fever, [...] if after hours patient instructed to call grinder set up operator centerless and ask for the doctor staff electronic warfare officer. Patient and family have phone number to call 24 hours/day. Patient Evaluation: Verbalizes understanding Patient and/or family express understanding of upcoming surgery and the operative process. Questions answered. Follow Up Plan: Follow up as needed Supplemental Material Given: Pre-operative teaching packet provided to the patient: INPATIENT/OUTPATIENT printed instructions; Post-operative instruction sheet, bowel prep instruction sheet For questions contact: office at [phone] Instructed By Aracelis Charles RN [facility] Serum or plasma calcidiol me asurement (mass/volume)on 07-10-2018 25-hydroxyvitamin D3 [Mass/Vol] 32.8 ng/mL 30-100 [facility] Comment on above: VITAMIN D STATUS 25( [place])VITAMIN D RANGE (ng/mL) Deficient <20 Insufficient 20 to <30Sufficient 30 to 100Reference: Sandra MF,Felisha SCANLON, Leon SHERWOOD, et al. Evaluation,treatment, and prevention of vitamin D deficiency; an Endocrine Society clinical practice guideline. JCEM. 2010; 96(7):1911-30. Vitamin B12 ser/plason 07-10 Cobalamin (Vitamin B12) [Mass/Vol] 446 pg/mL 180-914 [facility] BASIC METABOLIC PANELon 04-29 Anion gap 11 mmol/L Normal 0-19 [facility] Comment on above: Performed By: #### B MP ####[id number],[place] [address] BUN/Creatinine Ratio 16.0 RATIO Normal 8-21 [facility] Comment on above: Performed By: #### B MP ####[id number] [place] [address] Calcium 9.1 mg/dL Normal 8.5-10.4 [facility] Comment on above: Performed By: #### B MP ####[address] [place] [address] Chloride 98 mmol/L Normal 97-107 [facility] Comment on above: Performed By: #### B MP ####[address] [place] [address] CO2 25 mmol/L Normal 24-31 [facility] Comment on above: Performed By: #### B MP ####[address] [facility],[place] [address] Creatinine 0.5 mg/dL Normal 0.4-1.6 [facility] Comment on above: Performed By: #### B MP ####[address],[place] [address] eGFR (MDRD) Normal [facility] Comment on above: Result Comment: 134G FR ml/min/1.73m2 Stage -----90 160-89 230-59 315-29 4<15 5For -Americans, multiply EGFR result by 1.210Calculation not validated for patients under 18 years of age.Performed at [facility],[address] [place] [address] Performed By: #### B MP ####[address] [facility],[place] [address] Glucose mass conc 331 mg/dL High 65-99 [facility] Comment on above: Performed By: #### B MP ####[address] [facility],[place] [address] Potassium molar conc 4.6 mmol/L Normal 3.4-5.1 [facility] Comment on above: Performed By: #### B MP ####[address] [facility],[place] [address] Sodium 134 mmol/L Normal 133-145 [facility] Comment on above: Performed By: #### B MP ####[address] [facility],[place] [address] Urea nitrogen 8 mg/dL Normal 8-25 [facility] Comment on above: Performed By: #### B MP ####[address] [facility],[place] [address] EKGon 05-16-2017 EKG EKGVentric ular Rate : 60 BPMAtrial Rate : 60 BPMP-R Interval : 166 msQRS Duration : 80 msQ-T Interval : 432 msQTC Calculation(Bezet) : 432 msCalculated P Dighton : 63 degreesCalculated R Dighton : 29 degreesCalculated T Dighton : 35 degreesDiagnosis:Normal sinus rhythmNormal ECGNo previous ECGs availableConfirmed by Walter Slaughter ([id number]) on 05/16/2017 3:45:18 PM Normal [facility] HEMOGLOBIN,HCTon 05-16-2017 Hematocrit (HCT) High 36-44 [facility] Comment on above: Result Comment: 49.3 Performed at [facility],[address] [facility],[place] [address] Performed By: #### H H ####[address] [facility],[place] [address] Hemoglobin mass conc (Bld) 16.9 g/dL High 12.0-15.0 [facility] Comment on above: Performed By: #### H H ####[address],[place] [address] Operative Reporton 8 Operative Report Normal [facility] POCT GLUCOSEon 05-16-2017 Glucose mass conc 268 mg/dL High 65-99 [facility] Comment on above: Performed By: #### P CGL ####[place] [address] [place] [address] Glucose mass conc 292 mg/dL High 65-99 [facility] Comment on above: Performed By: #### P CGL ####[facility] [address] [place] [address] Glucose mass conc 358 mg/dL High 65-99 [facility] Comment on above: Performed By: #### P CGL ####[facility] [address] [place] [address] Glucose mass conc 243 mg/dL High 65-99 [facility] Comment on above: Performed By: #### P CGL ####[facility] [address] [place] [address] Vital Signs Date Time Vital Sign Value Performing Clinician Yue perez 12-15-2024 13:52-0400 Body height 170.18 cm Sandra Keita DO Work Phone: [facility] 12-15-2024 13:52-0400 Body mass index (BMI) [Ratio] 30.7 kg/m2 Sandra Keita DO Work Phone: [facility] 12-15-2024 13:52-0400 Body temperature 96.4 [degF] Sandra Keita DO Work Phone: [facility] 12-15-2024 13:52-0400 Body weight 88.9 kg Sandra Keita DO Work Phone: [facility] 12-15-2024 13:52-0400 Diastolic blood pressure 62 mm[Hg] Sandra Keita DO Work Phone: [facility] 12-15-2024 13:52-0400 Heart rate 79 /min Sandra Keita DO Work Phone: [facility] 12-15-2024 13:52-0400 SaO2% (BldA) [Mass fraction] 98 % Sandra Keita DO Work Phone: [facility] 12-15-2024 13:52-0400 Systolic blood pressure 98 mm[Hg] Sandra Keita DO Work Phone: [facility] 10-06-2024 13:57-0400 Body height 170.2 cm Oz Kincaid MD Work Phone: [facility] 10-06-2024 13:57-0400 Body mass index (BMI) [Ratio] 31.48 kg/m2 Oz Kincaid MD Work Phone: [facility] 10-06-2024 13:57-0400 Body weight 91.17 kg Oz Kincaid MD Work Phone: [facility] 10-01-2024 14:59-0400 Body height 170.18 cm Sandra Keita DO Work Phone: [facility] 10-01-2024 14:59-0400 Body mass index (BMI) [Ratio] 31.4 kg/m2 Sandra Keita DO Work Phone: [facility] 10-01-2024 14:59-0400 Body weight 91.17 kg Sandra Keita DO Work Phone: [facility] 10-01-2024 14:59-0400 Diastolic blood pressure 65 mm[Hg] Sandra Keita DO Work Phone: [facility] 10-01-2024 14:59-0400 Heart rate 65 /min Sandra Keita DO Work Phone: [facility] 10-01-2024 14:59-0400 SaO2% (BldA) [Mass fraction] 95 % Sandra Keita DO Work Phone: [facility] 10-01-2024 14:59-0400 Systolic blood pressure 86 mm[Hg] Sandra Keita DO Work Phone: [facility] 09-10-2024 13:30-0400 Diastolic blood pressure 76 mm[Hg] Sandra Keita DO Work Phone: [facility] 09-10-2024 13:30-0400 Heart rate 79 /min Sandra Keita DO Work Phone: [facility] 09-10-2024 13:30-0400 Respiratory rate 16 /min Sandra Keita DO Work Phone: [facility] 09-10-2024 13:30-0400 SaO2% (BldA) [Mass fraction] 95 % Sandra Keita DO Work Phone: [facility] 09-10-2024 13:30-0400 Systolic blood pressure 116 mm[Hg] Sandra Keita DO Work Phone: [facility] 09-10-2024 13:00-0400 Inhaled oxygen flow rate 2 L/min Sandra Keita DO Work Phone: [facility] 09-10-2024 11:07-0400 Body height 170.18 cm Sandra Keita DO Work Phone: [facility] 09-10-2024 11:07-0400 Body weight 90.71 kg Sandra Keita DO Work Phone: [facility] 09-07-2024 11:06-0400 Diastolic blood pressure 65 mm[Hg] Sandra Keita DO Work Phone: [facility] 09-07-2024 11:06-0400 Systolic blood pressure 112 mm[Hg] Sandra Keita DO Work Phone: [facility] 08-25-2024 13:37-0400 Body height 170.18 cm Sandra Keita DO Work Phone: [facility] 08-25-2024 13:37-0400 Body mass index (BMI) [Ratio] 31.8 kg/m2 Sandra Keita DO Work Phone: [facility] 08-25-2024 13:37-0400 Body weight 92.16 kg Sandra Keita DO Work Phone: [facility] 08-25-2024 13:37-0400 Diastolic blood pressure 66 mm[Hg] Sandra Keita DO Work Phone: [facility] 08-25-2024 13:37-0400 Heart rate 71 /min Sandra Keita DO Work Phone: [facility] 08-25-2024 13:37-0400 Respiratory rate 18 /min Sandra Keita DO Work Phone: [facility] 08-25-2024 13:37-0400 SaO2% (BldA) [Mass fraction] 96 % Sandra Keita DO Work Phone: [facility] 08-25-2024 13:37-0400 Systolic blood pressure 104 mm[Hg] Sandra Keita DO Work Phone: [facility] 08-20-2024 10:03-0400 Body height 170.18 cm Sandra Keita DO Work Phone: [facility] 08-20-2024 10:03-0400 Body mass index (BMI) [Ratio] 32.2 kg/m2 Sandra Keita DO Work Phone: [facility] 08-20-2024 10:03-0400 Body weight 93.3 kg Sandra Keita DO Work Phone: [facility] 08-20-2024 10:03-0400 Diastolic blood pressure 68 mm[Hg] Sandra Keita DO Work Phone: [facility] 08-20-2024 10:03-0400 Heart rate 64 /min Sandra Keita DO Work Phone: [facility] 08-20-2024 10:03-0400 Respiratory rate 18 /min Sandra Keita DO Work Phone: [facility] 08-20-2024 10:03-0400 SaO2% (BldA) [Mass fraction] 94 % Sandra Keita DO Work Phone: [facility] 08-20-2024 10:03-0400 Systolic blood pressure 138 mm[Hg] Sandra Keita DO Work Phone: [facility] 07-22-2024 11:19-0400 Body height 170.18 cm Sandra Keita DO Work Phone: [facility] 07-22-2024 11:19-0400 Body mass index (BMI) [Ratio] 31.3 kg/m2 Sandra Keita DO Work Phone: [facility] 07-22-2024 11:19-0400 Body temperature 98.2 [degF] Sandra Keita DO Work Phone: [facility] 07-22-2024 11:19-0400 Body weight 90.71 kg Sandra Keita DO Work Phone: [facility] 07-22-2024 11:19-0400 Diastolic blood pressure 68 mm[Hg] Sandra Keita DO Work Phone: [facility] 07-22-2024 11:19-0400 Heart rate 72 /min Sandrarebecca Keita DO Work Phone: [facility] 07-22-2024 11:19-0400 Respiratory rate 16 /min Sandra Debbie DO Work Phone: [facility] 07-22-2024 11:19-0400 SaO2% (BldA) [Mass fraction] 98 % Sandra Debbie DO Work Phone: [facility] 07-22-2024 11:19-0400 Systolic blood pressure 118 mm[Hg] Sandrarebecca Keita DO Work Phone: [facility] 07-21-2024 14:48-0400 Body height 170.2 cm Oz Kincaid MD Work Phone: [facility] 07-21-2024 14:48-0400 Body mass index (BMI) [Ratio] 31.32 kg/m2 Oz Kincaid MD Work Phone: [facility] 07-21-2024 14:48-0400 Body weight 90.72 kg Oz Kincaid MD Work Phone: [facility] 06-26-2024 09:46-0500 Body height 170.2 cm Thuan Wise MD Work Phone: [facility] 06-26-2024 09:46-0500 Body mass index (BMI) [Ratio] 32.51 kg/m2 Thuan Wise MD Work Phone: [facility] 06-26-2024 09:46-0500 Body weight 94.17 kg Thuan Wise MD Work Phone: [facility] 06-26-2024 09:46-0500 Diastolic blood pressure 70 mm[Hg] Thuan Wise MD Work Phone: [facility] 06-26-2024 09:46-0500 Heart rate 62 /min Thuan Wise MD Work Phone: [facility] 06-26-2024 09:46-0500 Systolic blood pressure 116 mm[Hg] Thuan Wise MD Work Phone: [facility] 05-07-2024 13:07-0500 Body height 170.18 cm Sandra Keita DO Work Phone: [facility] 05-07-2024 13:07-0500 Body mass index (BMI) [Ratio] 32.9 kg/m2 Sandra Keita DO Work Phone: [facility] 05-07-2024 13:07-0500 Body weight 95.3 kg Sandra Keita DO Work Phone: [facility] 05-07-2024 13:07-0500 Diastolic blood pressure 52 mm[Hg] Sandra Keita DO Work Phone: [facility] 05-07-2024 13:07-0500 Heart rate 64 /min Sandra Keita DO Work Phone: [facility] 05-07-2024 13:07-0500 Respiratory rate 18 /min Sandra Keita DO Work Phone: [facility] 05-07-2024 13:07-0500 SaO2% (BldA) [Mass fraction] 97 % Sandra Keita DO Work Phone: [facility] 05-07-2024 13:07-0500 Systolic blood pressure 82 mm[Hg] Sandra Keita DO Work Phone: [facility] 04-30-2024 08:25-0500 Body temperature 97.8 [degF] Sandra Keita DO Work Phone: [facility] 04-30-2024 08:25-0500 Diastolic blood pressure 83 mm[Hg] Sandra Keita DO Work Phone: [facility] 04-30-2024 08:25-0500 Heart rate 64 /min Sandra Keita DO Work Phone: [facility] 04-30-2024 08:25-0500 Respiratory rate 18 /min Sandra Keita DO Work Phone: [facility] 04-30-2024 08:25-0500 SaO2% (BldA) [Mass fraction] 96 % Sandra Keita DO Work Phone: [facility] 04-30-2024 08:25-0500 Systolic blood pressure 141 mm[Hg] Sandra Keita DO Work Phone: [facility] 04-30-2024 05:12-0500 Body weight 96.2 kg Sandra Keita DO Work Phone: [facility] 04-28-2024 23:40-0500 Body height 170.18 cm Sandra Keita DO Work Phone: [facility] 04-28-2024 23:19-0500 Diastolic blood pressure 68 mm[Hg] Sandra Keita DO Work Phone: [facility] 04-28-2024 23:19-0500 Heart rate 72 /min Sandra Keita DO Work Phone: [facility] 04-28-2024 23:19-0500 Respiratory rate 18 /min Sandra Keita DO Work Phone: [facility] 04-28-2024 23:19-0500 SaO2% (BldA) [Mass fraction] 98 % Sandra Keita DO Work Phone: [facility] 04-28-2024 23:19-0500 Systolic blood pressure 135 mm[Hg] Sandra Keita DO Work Phone: [facility] 04-28-2024 19:39-0500 Body height 170.18 cm Sandra Keita DO Work Phone: [facility] 04-28-2024 19:39-0500 Body temperature 98.1 [degF] Sandra Keita DO Work Phone: [facility] 04-28-2024 19:39-0500 Body weight 95.4 kg Sandra Keita DO Work Phone: [facility] 04-28-2024 11:35-0500 Body height 170.18 cm Sandra Keita DO Work Phone: [facility] 04-28-2024 11:35-0500 Body mass index (BMI) [Ratio] 32.5 kg/m2 Sandra Keita DO Work Phone: [facility] 04-28-2024 11:35-0500 Body weight 94.34 kg Sandra Keita DO Work Phone: [facility] 04-28-2024 11:35-0500 Diastolic blood pressure 58 mm[Hg] Sandra Keita DO Work Phone: [facility] 04-28-2024 11:35-0500 Heart rate 71 /min Sandra Keita DO Work Phone: [facility] 04-28-2024 11:35-0500 Respiratory rate 18 /min Sandra Keita DO Work Phone: [facility] 04-28-2024 11:35-0500 SaO2% (BldA) [Mass fraction] 94 % Sandra Keita DO Work Phone: [facility] 04-28-2024 11:35-0500 Systolic blood pressure 94 mm[Hg] Sandra Keita DO Work Phone: [facility] 04-28-2024 10:15-0500 Body height 170.18 cm Sandra Keita DO Work Phone: [facility] 04-28-2024 10:15-0500 Body mass index (BMI) [Ratio] 32.7 kg/m2 Sandra Keita DO Work Phone: [facility] 04-28-2024 10:15-0500 Body temperature 97.9 [degF] Sandra Keita DO Work Phone: [facility] 04-28-2024 10:15-0500 Body weight 94.8 kg Sandra Keita DO Work Phone: [facility] 04-28-2024 10:15-0500 Diastolic blood pressure 64 mm[Hg] Sandra Keita DO Work Phone: [facility] 04-28-2024 10:15-0500 Heart rate 70 /min Sandra Keita DO Work Phone: [facility] 04-28-2024 10:15-0500 Respiratory rate 16 /min Sandra Keita DO Work Phone: [facility] 04-28-2024 10:15-0500 SaO2% (BldA) [Mass fraction] 96 % Sandra Keita DO Work Phone: [facility] 04-28-2024 10:15-0500 Systolic blood pressure 88 mm[Hg] Sandra Keita DO Work Phone: [facility] 04-27-2024 14:29-0500 Body height 170.18 cm Sandra Keita DO Work Phone: [facility] 04-27-2024 14:29-0500 Body temperature 98 [degF] Sandra Keita DO Work Phone: [facility] 04-27-2024 14:29-0500 Body weight 90.71 kg Sandra Keita DO Work Phone: [facility] 04-27-2024 14:29-0500 Diastolic blood pressure 61 mm[Hg] Sandra Keita DO Work Phone: [facility] 04-27-2024 14:29-0500 Heart rate 80 /min Sandra Keita DO Work Phone: [facility] 04-27-2024 14:29-0500 Respiratory rate 18 /min Sandra Keita DO Work Phone: [facility] 04-27-2024 14:29-0500 SaO2% (BldA) [Mass fraction] 93 % Sandra Keita DO Work Phone: [facility] 04-27-2024 14:29-0500 Systolic blood pressure 116 mm[Hg] Sandra Keita DO Work Phone: [facility] 04-14-2024 09:35-0500 Body height 170.18 cm Sandra Keita DO Work Phone: [facility] 04-14-2024 09:35-0500 Body mass index (BMI) [Ratio] 32.1 kg/m2 Sandra Keita DO Work Phone: [facility] 04-14-2024 09:35-0500 Body temperature 98 [degF] Sandra Keita DO Work Phone: [facility] 04-14-2024 09:35-0500 Body weight 92.98 kg Sandra Keita DO Work Phone: [facility] 04-14-2024 09:35-0500 Diastolic blood pressure 80 mm[Hg] Sandra Keita DO Work Phone: [facility] 04-14-2024 09:35-0500 Heart rate 78 /min Sandra Keita DO Work Phone: [facility] 04-14-2024 09:35-0500 Respiratory rate 20 /min Sandra Keita DO Work Phone: [facility] 04-14-2024 09:35-0500 SaO2% (BldA) [Mass fraction] 98 % Sandra Keita DO Work Phone: [facility] 04-14-2024 09:35-0500 Systolic blood pressure 126 mm[Hg] Sandra Keita DO Work Phone: [facility] 04-07-2024 13:26-0500 Body height 170.2 cm Oz Kincaid MD Work Phone: [facility] 04-07-2024 13:26-0500 Body mass index (BMI) [Ratio] 31.32 kg/m2 Oz Kincaid MD Work Phone: [facility] 04-07-2024 13:26-0500 Body weight 90.72 kg Oz Kincaid MD Work Phone: [facility] 03-25-2024 13:42-0500 Body height 170.2 cm Thuan Wise MD Work Phone: [facility] 03-25-2024 13:42-0500 Body mass index (BMI) [Ratio] 32.58 kg/m2 Thuan Wise MD Work Phone: [facility] 03-25-2024 13:42-0500 Body weight 94.35 kg Thuan Wise MD Work Phone: [facility] 03-25-2024 13:42-0500 Diastolic blood pressure 64 mm[Hg] Thuan Wise MD Work Phone: [facility] 03-25-2024 13:42-0500 Heart rate 63 /min Thuan Wise MD Work Phone: [facility] 03-25-2024 13:42-0500 Systolic blood pressure 100 mm[Hg] Thuan Wise MD Work Phone: [facility] 02-25-2024 13:55-0400 Body height 170.2 cm Oz Kincaid MD Work Phone: [facility] 02-25-2024 13:55-0400 Body mass index (BMI) [Ratio] 31.32 kg/m2 Oz Kincaid MD Work Phone: [facility] 02-25-2024 13:55-0400 Body weight 90.72 kg Oz Kincaid MD Work Phone: [facility] 02-25-2024 13:55-0400 Diastolic blood pressure 84 mm[Hg] Oz Kincaid MD Work Phone: [facility] 02-25-2024 13:55-0400 Heart rate 74 /min Oz Kincaid MD Work Phone: [facility] 02-25-2024 13:55-0400 Systolic blood pressure 130 mm[Hg] Oz Kincaid MD Work Phone: [facility] 02-14-2024 13:23-0400 Body height 170.18 cm Sandra Keita DO Work Phone: [facility] 02-14-2024 13:23-0400 Body weight 90.71 kg Sandra Keita DO Work Phone: [facility] 02-03-2024 11:56-0400 Body height 170.18 cm DO Sandra Keita Work Phone: [facility] 02-03-2024 11:56-0400 Body mass index (BMI) [Ratio] 31.6 kg/m2 DO Sandra Keita Work Phone: [facility] 02-03-2024 11:56-0400 Body weight 91.62 kg DO Sandra Keita Work Phone: [facility] 02-03-2024 11:56-0400 Diastolic blood pressure 68 mm[Hg] DO Sandra Keita Work Phone: [facility] 02-03-2024 11:56-0400 Heart rate 63 /min DO Sandra Keita Work Phone: [facility] 02-03-2024 11:56-0400 Respiratory rate 18 /min DO Sandra Keita Work Phone: [facility] 02-03-2024 11:56-0400 SaO2% (BldA) [Mass fraction] 98 % DO Sandra Keita Work Phone: [facility] 02-03-2024 11:56-0400 Systolic blood pressure 100 mm[Hg] DO Sandra Keita Work Phone: [facility] 01-15-2024 15:38-0400 Body height 170.18 cm DO Sandra Keita Work Phone: [facility] 01-15-2024 15:38-0400 Body mass index (BMI) [Ratio] 31.3 kg/m2 DO Sandra Keita Work Phone: [facility] 01-15-2024 15:38-0400 Body weight 90.77 kg DO Sandra Keita Work Phone: [facility] 01-07-2024 13:18-0400 Body height 170.2 cm Oz Kincaid MD Work Phone: [facility] 01-07-2024 13:18-0400 Body mass index (BMI) [Ratio] 31.32 kg/m2 Oz Kincaid MD Work Phone: [facility] 01-07-2024 13:18-0400 Body weight 90.72 kg Oz Kincaid MD Work Phone: [facility] 01-07-2024 13:18-0400 Diastolic blood pressure 74 mm[Hg] Oz Kincaid MD Work Phone: [facility] 01-07-2024 13:18-0400 Heart rate 62 /min Oz Kincaid MD Work Phone: [facility] 01-07-2024 13:18-0400 Systolic blood pressure 107 mm[Hg] Oz Kincaid MD Work Phone: [facility] 12-16-2023 10:40-0400 Body height 170.2 cm Thuan Wise MD Work Phone: [facility] 12-16-2023 10:40-0400 Body mass index (BMI) [Ratio] 30.48 kg/m2 Thuan Wise MD Work Phone: [facility] 12-16-2023 10:40-0400 Body weight 88.27 kg Thuan Wise MD Work Phone: [facility] 12-16-2023 10:40-0400 Diastolic blood pressure 64 mm[Hg] Thuan Wise MD Work Phone: [facility] 12-16-2023 10:40-0400 Heart rate 73 /min Thuan Wise MD Work Phone: [facility] 12-16-2023 10:40-0400 Systolic blood pressure 102 mm[Hg] Thuan Wise MD Work Phone: [facility] 11-18-2023 13:14-0400 Body height 170.18 cm DO Sandra Keita Work Phone: [facility] 11-18-2023 13:14-0400 Body mass index (BMI) [Ratio] 28.6 kg/m2 DO Sandra Keita Work Phone: [facility] 11-18-2023 13:14-0400 Body weight 83 kg DO Sandra Keita Work Phone: [facility] 11-18-2023 13:14-0400 Diastolic blood pressure 62 mm[Hg] DO Sandra Keita Work Phone: [facility] 11-18-2023 13:14-0400 Heart rate 54 /min DO Sandra Keita Work Phone: [facility] 11-18-2023 13:14-0400 Respiratory rate 18 /min DO Sandra Keita Work Phone: [facility] 11-18-2023 13:14-0400 SaO2% (BldA) [Mass fraction] 97 % DO Sandra Keita Work Phone: [facility] 11-18-2023 13:14-0400 Systolic blood pressure 96 mm[Hg] DO Sandra Keita Work Phone: [facility] 11-14-2023 15:07-0400 Body height 170.18 cm DO Sandra Keita Work Phone: [facility] 11-14-2023 15:07-0400 Body mass index (BMI) [Ratio] 28.5 kg/m2 DO Sandra Keita Work Phone: [facility] 11-14-2023 15:07-0400 Body weight 82.8 kg DO Sandra Keita Work Phone: [facility] 11-14-2023 15:07-0400 Diastolic blood pressure 72 mm[Hg] DO Sandra Keita Work Phone: [facility] 11-14-2023 15:07-0400 Heart rate 67 /min DO Sandra Keita Work Phone: [facility] 11-14-2023 15:07-0400 Respiratory rate 18 /min DO Sandra Debbie Work Phone: [facility] 11-14-2023 15:07-0400 SaO2% (BldA) [Mass fraction] 97 % DO Sandra Keita Work Phone: [facility] 11-14-2023 15:07-0400 Systolic blood pressure 110 mm[Hg] DO Sandra Keita Work Phone: [facility] 11-13-2023 13:54-0400 Body height 170.2 cm Jonas Ch MD Work Phone: [facility] 11-13-2023 13:54-0400 Body mass index (BMI) [Ratio] 28.19 kg/m2 Jonas Ch MD Work Phone: [facility] 11-13-2023 13:54-0400 Body weight 81.65 kg Jonas Ch MD Work Phone: [facility] 11-13-2023 13:54-0400 Diastolic blood pressure 70 mm[Hg] Jonas Ch MD Work Phone: [facility] 11-13-2023 13:54-0400 Heart rate 87 /min Jonas Ch MD Work Phone: [facility] 11-13-2023 13:54-0400 Systolic blood pressure 108 mm[Hg] Jonas Ch MD Work Phone: [facility] 11-12-2023 16:12-0400 Diastolic blood pressure 83 mm[Hg] DO Sandra Keita Work Phone: [facility] 11-12-2023 16:12-0400 Heart rate 61 /min DO Sandra Keita Work Phone: [facility] 11-12-2023 16:12-0400 Respiratory rate 16 /min DO Sandra Keita Work Phone: [facility] 11-12-2023 16:12-0400 SaO2% (BldA) [Mass fraction] 96 % DO Sandra Keita Work Phone: [facility] 11-12-2023 16:12-0400 Systolic blood pressure 149 mm[Hg] DO Sandra Keita Work Phone: [facility] 11-12-2023 12:16-0400 Body temperature 97.5 [degF] DO Sandra Keita Work Phone: [facility] 11-12-2023 06:00-0400 Body weight 83.5 kg DO Sandra Keita Work Phone: [facility] 11-10-2023 08:23-0400 Body height 170.18 cm DO Sandra Debbie Work Phone: [facility] 11-10-2023 05:05-0400 Diastolic blood pressure 67 mm[Hg] DO Sandra Debbie Work Phone: [facility] 11-10-2023 05:05-0400 Heart rate 62 /min DO Sandra Debbie Work Phone: [facility] 11-10-2023 05:05-0400 Respiratory rate 18 /min DO Sandra Debbie Work Phone: [facility] 11-10-2023 05:05-0400 SaO2% (BldA) [Mass fraction] 100 % DO Sandra Debbie Work Phone: [facility] 11-10-2023 05:05-0400 Systolic blood pressure 144 mm[Hg] DO Sandra Debbie Work Phone: [facility] 11-10-2023 03:44-0400 Body temperature 98.1 [degF] DO Sandra Debbie Work Phone: [facility] 11-09-2023 22:16-0400 Body height 170.18 cm DO Sandra Debbie Work Phone: [facility] 11-09-2023 22:16-0400 Body weight 81.64 kg DO Sandra Debbie Work Phone: [facility] 11-05-2023 12:36-0400 SaO2% (BldA) [Mass fraction] 100 % DO Sandra Debbie Work Phone: [facility] 10-07-2023 09:48-0400 Body height 170.2 cm Jonas Ch MD Work Phone: [facility] 10-07-2023 09:48-0400 Body mass index (BMI) [Ratio] 28.19 kg/m2 Jonas Ch MD Work Phone: [facility] 10-07-2023 09:48-0400 Body weight 81.65 kg Jonas Ch MD Work Phone: [facility] 10-07-2023 09:48-0400 Diastolic blood pressure 90 mm[Hg] Jonas Ch MD Work Phone: [facility] 10-07-2023 09:48-0400 Heart rate 92 /min Jonas Ch MD Work Phone: [facility] 10-07-2023 09:48-0400 Systolic blood pressure 114 mm[Hg] Jonas Ch MD Work Phone: [facility] 09-17-2023 13:02-0400 Body height 167.64 cm DO Sandra Keita Work Phone: [facility] 09-17-2023 13:02-0400 Body mass index (BMI) [Ratio] 29 kg/m2 DO Sandra Keita Work Phone: [facility] 09-17-2023 13:02-0400 Body weight 81.67 kg DO Sandra Keita Work Phone: [facility] 09-17-2023 13:02-0400 Diastolic blood pressure 64 mm[Hg] DO Sandra Keita Work Phone: [facility] 09-17-2023 13:02-0400 Heart rate 117 /min DO Sandra Keita Work Phone: [facility] 09-17-2023 13:02-0400 Respiratory rate 18 /min DO Sandra Keita Work Phone: [facility] 09-17-2023 13:02-0400 SaO2% (BldA) [Mass fraction] 99 % DO Sandra Keita Work Phone: [facility] 09-17-2023 13:02-0400 Systolic blood pressure 92 mm[Hg] DO Sandra Keita Work Phone: [facility] 09-14-2023 16:11-0400 Body temperature 97.7 [degF] DO Sandra Keita Work Phone: [facility] 09-14-2023 16:11-0400 Diastolic blood pressure 70 mm[Hg] DO Sandra Keita Work Phone: [facility] 09-14-2023 16:11-0400 Heart rate 74 /min DO Sandra Keita Work Phone: [facility] 09-14-2023 16:11-0400 Respiratory rate 17 /min DO Sandra Keita Work Phone: [facility] 09-14-2023 16:11-0400 SaO2% (BldA) [Mass fraction] 95 % DO Sandra Keita Work Phone: [facility] 09-14-2023 16:11-0400 Systolic blood pressure 115 mm[Hg] DO Sandra Keita Work Phone: [facility] 09-14-2023 06:00-0400 Body weight 83.2 kg DO Sandra Keita Work Phone: [facility] 09-13-2023 12:41-0400 Body height 170.18 cm DO Sandra Keita Work Phone: [facility] 09-12-2023 13:58-0400 Body height 167.64 cm DO Sandra Keita Work Phone: [facility] 09-12-2023 13:58-0400 Body mass index (BMI) [Ratio] 29 kg/m2 DO Sandra Keita Work Phone: [facility] 09-12-2023 13:58-0400 Body weight 81.64 kg DO Sandra Keita Work Phone: [facility] 09-12-2023 13:58-0400 Diastolic blood pressure 81 mm[Hg] DO Sandra Keita Work Phone: [facility] 09-12-2023 13:58-0400 Heart rate 135 /min DO Sandra Keita Work Phone: [facility] 09-12-2023 13:58-0400 Respiratory rate 18 /min DO Sandra Keita Work Phone: [facility] 09-12-2023 13:58-0400 SaO2% (BldA) [Mass fraction] 97 % DO Sandra Keita Work Phone: [facility] 09-12-2023 13:58-0400 Systolic blood pressure 112 mm[Hg] DO Sandra Keita Work Phone: [facility] 07-17-2023 11:43-0400 Body height 167.64 cm [facility] 07-17-2023 11:43-0400 Body mass index (BMI) [Ratio] 28.8 kg/m2 [facility] 07-17-2023 11:43-0400 Body temperature 97.8 [degF] [facility] 07-17-2023 11:43-0400 Body weight 81.19 kg [facility] 07-17-2023 11:43-0400 Diastolic blood pressure 64 mm[Hg] [facility] 07-17-2023 11:43-0400 Heart rate 78 /min [facility] 07-17-2023 11:43-0400 Respiratory rate 16 /min [facility] 07-17-2023 11:43-0400 SaO2% (BldA) [Mass fraction] 98 % [facility] 07-17-2023 11:43-0400 Systolic blood pressure 112 mm[Hg] [facility] 06-19-2023 15:53-0500 Body height 167.64 cm [facility] 06-19-2023 15:53-0500 Body mass index (BMI) [Ratio] 28.9 kg/m2 [facility] 06-19-2023 15:53-0500 Body weight 81.33 kg [facility] 06-19-2023 15:53-0500 Diastolic blood pressure 68 mm[Hg] [facility] 06-19-2023 15:53-0500 Heart rate 95 /min [facility] 06-19-2023 15:53-0500 Respiratory rate 18 /min [facility] 06-19-2023 15:53-0500 SaO2% (BldA) [Mass fraction] 97 % [facility] 06-19-2023 15:53-0500 Systolic blood pressure 92 mm[Hg] [facility] 06-12-2023 15:38-0500 Body height 167.64 cm [facility] 06-12-2023 15:38-0500 Body mass index (BMI) [Ratio] 28.5 kg/m2 [facility] 06-12-2023 15:38-0500 Body weight 80.28 kg [facility] 06-12-2023 15:38-0500 Diastolic blood pressure 72 mm[Hg] [facility] 06-12-2023 15:38-0500 Heart rate 95 /min [facility] 06-12-2023 15:38-0500 Respiratory rate 18 /min [facility] 06-12-2023 15:38-0500 SaO2% (BldA) [Mass fraction] 99 % [facility] 06-12-2023 15:38-0500 Systolic blood pressure 111 mm[Hg] [facility] 03-04-2023 15:00-0500 Body height 167.64 cm Sandra Keita Other [employer] Other 03-04-2023 15:00-0500 Body mass index (BMI) [Ratio] 29.97 kg/m2 Sandra eKita Other [employer] Other 03-04-2023 15:00-0500 Body weight 84.23 kg Sandra Keita Other [employer] Other 03-04-2023 15:00-0500 Diastolic blood pressure 68 mm[Hg] Sandra Keita Other [employer] Other 03-04-2023 15:00-0500 Respiratory rate 18 /min Sandra Keita Other [employer] Other 03-04-2023 15:00-0500 SaO2% (BldA) [Mass fraction] 96 % Sandra Keita Other [employer] Other 03-04-2023 15:00-0500 Systolic blood pressure 98 mm[Hg] Sandra Keita Other [employer] Other 01-07-2023 14:00-0400 Body height 167.64 cm Tondra Mapus Other [employer] Other 01-07-2023 14:00-0400 Body mass index (BMI) [Ratio] 30.03 kg/m2 Tondra Mapus Other [employer] Other 01-07-2023 14:00-0400 Body weight 84.41 kg Tondra Mapus Other [employer] Other 01-07-2023 14:00-0400 Diastolic blood pressure 68 mm[Hg] Tondra Mapus Other [employer] Other 01-07-2023 14:00-0400 Respiratory rate 18 /min Tondra Mapus Other [employer] Other 01-07-2023 14:00-0400 SaO2% (BldA) [Mass fraction] 98 % Tondra Mapus Other [employer] Other 01-07-2023 14:00-0400 Systolic blood pressure 102 mm[Hg] Angelique Russell Other [employer] Other 01-02-2023 11:00-0400 Body height 167.64 cm Brayden Aide Other [employer] Other 01-02-2023 11:00-0400 Body mass index (BMI) [Ratio] 29.7 kg/m2 Brayden Morrisormack Other [employer] Other 01-02-2023 11:00-0400 Body weight 83.46 kg Brayden Morrisormack Other [employer] Other 01-02-2023 11:00-0400 Diastolic blood pressure 78 mm[Hg] Brayden Nealack Other [employer] Other 01-02-2023 11:00-0400 Systolic blood pressure 120 mm[Hg] Brayden Nealack Other [employer] Other 11-28-2022 15:00-0400 Body height 167.64 cm Sandra Keita Other [employer] Other 11-28-2022 15:00-0400 Body mass index (BMI) [Ratio] 29.58 kg/m2 Sandra Keita Other [employer] Other 11-28-2022 15:00-0400 Body weight 83.14 kg Sandra Keita Other [employer] Other 11-28-2022 15:00-0400 Diastolic blood pressure 72 mm[Hg] Sandra Keita Other [employer] Other 11-28-2022 15:00-0400 Respiratory rate 20 /min Sandra Keita Other [employer] Other 11-28-2022 15:00-0400 SaO2% (BldA) [Mass fraction] 99 % Sandra Keita Other [employer] Other 11-28-2022 15:00-0400 Systolic blood pressure 115 mm[Hg] Sandra Keita Other [employer] Other 09-27-2022 14:15-0400 Body height 167.64 cm Tondra Mapus Other [employer] Other 09-27-2022 14:15-0400 Body mass index (BMI) [Ratio] 29.53 kg/m2 Tondra Mapus Other [employer] Other 09-27-2022 14:15-0400 Body weight 83.01 kg Tondra Mapus Other [employer] Other 09-27-2022 14:15-0400 Diastolic blood pressure 66 mm[Hg] Tondra Mapus Other [employer] Other 09-27-2022 14:15-0400 Respiratory rate 18 /min Tondra Mapus Other [employer] Other 09-27-2022 14:15-0400 SaO2% (BldA) [Mass fraction] 97 % Tondra Mapus Other [employer] Other 09-27-2022 14:15-0400 Systolic blood pressure 100 mm[Hg] Tondra Mapus Other [employer] Other 08-09-2022 16:15-0400 Body height 167.64 cm Sandra Keita Other [employer] Other 08-09-2022 16:15-0400 Body mass index (BMI) [Ratio] 29.86 kg/m2 Sandra Keita Other [employer] Other 08-09-2022 16:15-0400 Body weight 83.92 kg Sandar Keita Other [employer] Other 08-09-2022 16:15-0400 Diastolic blood pressure 74 mm[Hg] Sandra Keita Other [employer] Other 08-09-2022 16:15-0400 Respiratory rate 18 /min Sandra Keita Other [employer] Other 08-09-2022 16:15-0400 SaO2% (BldA) [Mass fraction] 97 % Sandra Keita Other [employer] Other 08-09-2022 16:15-0400 Systolic blood pressure 118 mm[Hg] Sandra Keita Other [employer] Other 06-18-2022 15:30-0500 Body height 167.64 cm Tondra Mapus Other [employer] Other 06-18-2022 15:30-0500 Body mass index (BMI) [Ratio] 35.34 kg/m2 Tondra Mapus Other [employer] Other 06-18-2022 15:30-0500 Body weight 99.34 kg Tondra Mapus Other [employer] Other 06-18-2022 15:30-0500 Diastolic blood pressure 72 mm[Hg] Tondra Mapus Other [employer] Other 06-18-2022 15:30-0500 Respiratory rate 18 /min Tondra Mapus Other [employer] Other 06-18-2022 15:30-0500 SaO2% (BldA) [Mass fraction] 97 % Tondra Mapus Other [employer] Other 06-18-2022 15:30-0500 Systolic blood pressure 108 mm[Hg] Tondra Mapus Other [employer] Other 01-09-2022 14:00-0400 Body height 167.64 cm Tondra Mapus Other [employer] Other 01-09-2022 14:00-0400 Body mass index (BMI) [Ratio] 28.73 kg/m2 Tondra Mapus Other [employer] Other 01-09-2022 14:00-0400 Body weight 80.74 kg Tondra Mapus Other [employer] Other 01-09-2022 14:00-0400 Diastolic blood pressure 79 mm[Hg] Tondra Mapus Other [employer] Other 01-09-2022 14:00-0400 Respiratory rate 16 /min Tondra Mapus Other [employer] Other 01-09-2022 14:00-0400 SaO2% (BldA) [Mass fraction] 97 % Tondra Mapus Other [employer] Other 01-09-2022 14:00-0400 Systolic blood pressure 127 mm[Hg] Tondra Mapus Other [employer] Other 12-17-2021 08:23-0400 Diastolic blood pressure 63 mm[Hg[facility] 08:23-0400 Heart rate 82 /min DO Trayumu Randle [facility] 12-17-2021 08:23-0400 Respiratory rate 18 /min DO Tray Randle [facility] 12-17-2021 08:23-0400 SaO2% (BldA) [Mass fraction] 98 % DO Trayumu Randle [facility] 12-17-2021 08:23-0400 Systolic blood pressure 135 mm[Hg] DO Trayumu Randle [facility] 12-17-2021 05:29-0400 Body height 170.18 cm DO Tray Randle [facility] 12-17-2021 05:29-0400 Body temperature 97.4 [degF] DO Tray Randle [facility] 12-17-2021 05:29-0400 Body weight 82.55 kg DO Tray Randle [facility] 12-14-2021 06:58-0400 Body height 170.18 cm DO Tray Randle [facility] 12-14-2021 06:58-0400 Body mass index (BMI) [Ratio] 29.2 kg/m2 DO [facility] 12-14-2021 06:58-0400 Body weight 84.8 kg DO Tray Morrisarthy [facility] 12-13-2021 11:06-0400 Body temperature 97.7 [degF] DO Tray Randle [facility] 12-13-2021 11:06-0400 Diastolic blood pressure 67 mm[Hg] DO Trayumu Randle [facility] 12-13-2021 11:06-0400 Heart rate 88 /min DO Tray Randle [facility] 12-13-2021 11:06-0400 Respiratory rate 16 /min DO Tray Randle [facility] 12-13-2021 11:06-0400 SaO2% (BldA) [Mass fraction] 93 % [facility] 12-13-2021 11:06-0400 Systolic blood pressure 119 mm[Hg] DO [facility] 12-13-2021 08:00-0400 Inhaled oxygen flow rate 3 L/min DO [facility] 10-12-2021 11:00-0400 Body height 167.64 cm Crispin Looney Other [employer] [facility] [employer] Other 10-12-2021 11:00-0400 Body mass index (BMI) [Ratio] 29.81 kg/m2 Crispin Looney Other [employer] Other 10-12-2021 11:00-0400 Body weight 83.78 kg Crispin Looney Other [employer] Other 10-12-2021 11:00-0400 Diastolic blood pressure 68 mm[Hg] Crispin Looney Other [employer] Other 10-12-2021 11:00-0400 Respiratory rate 18 /min Crispin Looney Other [facility] Other 10-12-2021 11:00-0400 SaO2% (BldA) [Mass fraction] 97 % Crispin Looney Other [facility] Other 10-12-2021 11:00-0400 Systolic blood pressure 97 mm[Hg] Crispin Looney Other [facility] Other 07-10-2021 14:30-0400 Body height 167.64 cm Tondra Mapus Other [facility] Other 07-10-2021 14:30-0400 Body mass index (BMI) [Ratio] 30.34 kg/m2 Tondra Mapus Other [facility] Other 07-10-2021 14:30-0400 Body weight 85.28 kg Tondra Mapus Other [facility] Other 07-10-2021 14:30-0400 Diastolic blood pressure 60 mm[Hg] Tondra Mapus Other [facility] Other 07-10-2021 14:30-0400 Respiratory rate 16 /min Tondra Mapus Other [facility] Other 07-10-2021 14:30-0400 SaO2% (BldA) [Mass fraction] 97 % Tondra Mapus Other [facility] Other 07-10-2021 14:30-0400 Systolic blood pressure 89 mm[Hg] Tondra Mapus Other [facility] Other 07-03-2021 16:00-0500 Body height 167.64 cm Ruben Hahn Other [facility] Other 07-03-2021 16:00-0500 Body mass index (BMI) [Ratio] 30.5 kg/m2 Ruben Hahn Other [facility] Other 07-03-2021 16:00-0500 Body temperature 95.5 [degF] Ruben Hahn Other [facility] Other 07-03-2021 16:00-0500 Body weight 85.73 kg Ruben Hahn Other [facility] Other 07-03-2021 16:00-0500 Diastolic blood pressure 68 mm[Hg] Ruben Hahn Other [facility] Other 07-03-2021 16:00-0500 SaO2% (BldA) [Mass fraction] 99 % Ruben Hahn Other [facility] Other 07-03-2021 16:00-0500 Systolic blood pressure 94 mm[Hg] Ruben Hahn Other [facility] Other 05-08-2021 14:15-0500 Body height 167.64 cm Crispin Looney Other [facility] Other 05-08-2021 14:15-0500 Body mass index (BMI) [Ratio] 30.87 kg/m2 Crispinjaclyn LeeAayush Other [facility] Other 05-08-2021 14:15-0500 Body weight 86.77 kg Crispinjaclyn LeeAayush Other [facility] Other 05-08-2021 14:15-0500 Diastolic blood pressure 58 mm[Hg] Crispin Aayush Other [facility] Other 05-08-2021 14:15-0500 Respiratory rate 20 /min Crispin Looney Other [facility] Other 05-08-2021 14:15-0500 SaO2% (BldA) [Mass fraction] 98 % Crispin Looney Other [facility] Other 05-08-2021 14:15-0500 Systolic blood pressure 102 mm[Hg] Crispin Looney Other [facility] Other 04-03-2021 15:00-0500 Body height 167.64 cm Tray Nava Other [facility] Other 04-03-2021 15:00-0500 Body mass index (BMI) [Ratio] 30.99 kg/m2 Tray Nava Other [facility] Other 04-03-2021 15:00-0500 Body temperature 98.3 [degF] Tray Nava Other [facility] Other 04-03-2021 15:00-0500 Body weight 87.09 kg Tray Nava Other [facility] Other 04-03-2021 15:00-0500 Diastolic blood pressure 68 mm[Hg] Tray Nava Other [facility] Other 04-03-2021 15:00-0500 SaO2% (BldA) [Mass fraction] 93 % Tray Nava Other [facility] Other 04-03-2021 15:00-0500 Systolic blood pressure 110 mm[Hg] Tray Nava Other [facility] Other 03-27-2021 15:00-0500 Body height 167.64 cm Tondra Mapus Other [facility] Other 03-27-2021 15:00-0500 Body mass index (BMI) [Ratio] 30.99 kg/m2 Tondra Mapus Other [facility] Other 03-27-2021 15:00-0500 Body weight 87.09 kg Tondra Mapus Other [facility] Other 03-27-2021 15:00-0500 Diastolic blood pressure 75 mm[Hg] Tondra Mapus Other [facility] Other 03-27-2021 15:00-0500 Respiratory rate 20 /min Tondra Mapus Other [facility] Other 03-27-2021 15:00-0500 SaO2% (BldA) [Mass fraction] 97 % Tondra Mapus Other [facility] Other 03-27-2021 15:00-0500 Systolic blood pressure 124 mm[Hg] Tondra Mapus Other [facility] Other 02-27-2021 16:00-0400 Body height 167.64 cm Tray Nava Other [facility] Other 02-27-2021 16:00-0400 Body mass index (BMI) [Ratio] 30.66 kg/m2 Tray Nava Other [facility] Other 02-27-2021 16:00-0400 Body weight 86.18 kg Tray Nava Other [facility] Other 02-27-2021 16:00-0400 Diastolic blood pressure 76 mm[Hg] Tray Nava Other [facility] Other 02-27-2021 16:00-0400 Systolic blood pressure 123 mm[Hg] Tray Nava Other [facility] Other 08-27-2017 12:01-0400 Body height 170.18 cm DO Jonas Yoder Work Phone: [facility] Encounters Encounter Date Encounter Type Care Provider Facility Start: 12-15-2024 End: 12-15-2024 ambulatory Sandra Keita DO Work Phone: [facility] Work Phone: Start: 12-15-2024 End: 12-15-2024 Patient encounter procedure Shantel Norton 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 -[facility] Work Phone: Start: 12-11-2024 End: 12-11-2024 ambulatory OZ KINCAID Not Available Start: 12-11-2024 End: 12-11-2024 Patient encounter procedure Oz Kincaid MD Work Phone: [facility] Comment on above: Hand weakness (Prima ry Dx); Carpal tunnel syndrome, bilateral Start: 11-23-2024 End: 11-23-2024 Office outpatient visit 15 minutes Karl ZUNIGAM Work Phone: [facility] Comment on above: Ulcer of right foot with fat layer exposed (HCC) (Primary Dx); 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); Abscess of right foot; At increased risk for emergency hospital admission Start: 11-23-2024 End: 11-23-2024 ambulatory KARL FRITZ Not Available Start: 11-23-2024 End: 11-23-2024 Bamboo flowsheet Karl Fritz DPM Work Phone: [facility] [facility] Start: 11-23-2024 End: 11-23-2024 Bamboo flowsheet Karl Fritz DPM Work Phone: [facility] [facility] Start: 11-16-2024 End: 11-16-2024 Departed Referred Karl Fritz DPM -Lab [facility] Work Phone: Start: 11-16-2024 End: 11-16-2024 Office outpatient visit 25 minutes Karl Fritz DPM Work Phone: [facility] Comment on above: Ulcer of right foot with fat layer exposed (HCC) (Primary Dx); 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); Cellulitis of right foot; Deformity of toe, right Start: 11-16-2024 End: 11-16-2024 ambulatory Sandra Keita DO Work Phone: [facility] Work Phone: Start: 11-16-2024 End: 11-17-2024 External Result Encounter Karl Fritz DPM Work Phone: [facility] External Department Unsolicited Start: 11-16-2024 End: 11-17-2024 External Result Encounter Karl Fritz DPM Work Phone: [facility] External Department Unsolicited Start: 11-09-2024 End: 11-09-2024 ambulatory Halie Marc MD Facility:[facility] [place] Start: 10-31-2024 End: 11-02-2024 Refill Oz Kincaid MD Work Phone: [facility] Comment on above: Neurogenic pain Start: 10-21-2024 End: 10-21-2024 Telephone encounter Oz Kincaid MD Work Phone: [facility] Start: 10-20-2024 End: 10-20-2024 Bamboo flowsheet Karl Fritz DPM Work Phone: [facility] Start: 10-20-2024 End: 10-20-2024 Bamboo flowsheet Karl Fritz DPM Work Phone: [facility] Start: 10-20-2024 End: 10-20-2024 Office outpatient visit 25 minutes Karl Fritz DPM Work Phone: [facility] Comment on above: Ulcer of right foot with fat layer exposed (HCC) (Primary Dx); 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); Blister of right foot, initial encounter; Deformity, foot, right Start: 10-20-2024 End: 10-20-2024 ambulatory KARL FRITZ Not Available Start: 10-07-2024 End: 10-07-2024 Telephone encounter Oz Kincaid MD Work Phone: [facility] Start: 10-06-2024 End: 10-06-2024 Bamboo flowsheet Oz Kincaid MD Work Phone: [facility] Start: 10-06-2024 End: 10-06-2024 Bamboo flowsheet Oz Kincaid MD Work Phone: [facility] Start: 10-06-2024 End: 10-06-2024 Office outpatient visit 25 minutes Oz Kincaid MD Work Phone: [facility] Comment on above: Weakness of both low er extremities (Primary Dx); Carpal tunnel syndrome, bilateral; Cognitive decline; Cervical paraspinal muscle spasm; B12 deficiency; Guyon syndrome, unspecified laterality; Numbness; Leg pain, left; Leg pain, right; Bilateral leg weakness Start: 10-06-2024 End: 10-06-2024 ambulatory OZ KINCAID Not Available Start: 10-05-2024 End: 10-05-2024 ambulatory Halie Marc MD Facility:[facility] Start: 10-01-2024 End: 10-01-2024 ambulatory Sandra Keita DO Work Phone: [facility] Work Phone: Start: 10-01-2024 End: 10-01-2024 Patient encounter procedure Sandra Keita DO Work Phone: [facility] Work Phone: Start: 09-10-2024 Non-patient / Non-visit Sandra Keiat DO Work Phone: [facility] Gastro Work Phone: Start: 09-10-2024 End: 09-10-2024 Admission to same day surgery center Sandra Keita DO Work Phone: [facility]-Digestive Health Work Phone: Start: 09-10-2024 End: 09-10-2024 ambulatory Sandra A Keita DO Work Phone: [facility] Work Phone: Start: 09-07-2024 End: 09-07-2024 ambulatory Sandra A Keita DO Work Phone: [facility] Work Phone: Start: 09-07-2024 End: 09-07-2024 Patient encounter procedure Sandra Keita DO Work Phone: [facility] Neurosurgery Work Phone: Start: 08-25-2024 End: 08-25-2024 ambulatory Sandra A Keita DO Work Phone: [facility] Work Phone: Start: 08-25-2024 End: 08-25-2024 Patient encounter procedure Sandra Keita DO Work Phone: [facility] [place] Work Phone: Start: 08-20-2024 End: 08-20-2024 ambulatory Sandra A Keita DO Work Phone: [facility] Work Phone: Start: 08-20-2024 End: 08-20-2024 Patient encounter procedure Sandrarebecca Keita DO Work Phone: [facility] Work Phone: Start: 07-22-2024 End: 07-22-2024 Patient encounter procedure Sandra Debbie DO Work Phone: [facility] Vascular Surg Work Phone: Start: 07-22-2024 End: 07-22-2024 ambulatory Sandra Rebecca Keita DO Work Phone: [facility] Work Phone: Start: 07-21-2024 End: 07-21-2024 Office outpatient visit 15 minutes Oz Kincaid MD Work Phone: [facility] Comment on above: Cognitive decline (P rimary Dx); Cervical paraspinal muscle spasm; B12 deficiency; Carpal tunnel syndrome, bilateral; Guyon syndrome, unspecified laterality; Neurogenic pain Start: 07-21-2024 End: 07-21-2024 ambulatory OZ KINCAID Not Available Start: 07-06-2024 End: 07-06-2024 ambulatory Sandra Rebecca Keita DO Work Phone: [facility] Work Phone: Start: 07-06-2024 End: 07-06-2024 Departed Referred Sandrarebecca Keita DO Work Phone: [facility]-LAB Path Spec Ac Hosp Start: 06-26-2024 End: 06-29-2024 External Result Encounter Nataliya Jane INDUSTRIAL MAINTENANCE REPAIRER Other Phone: [facility] External Department Unsolicited Start: 06-26-2024 End: 06-29-2024 External Result Encounter Nataliya Jane INDUSTRIAL MAINTENANCE REPAIRER Other Phone: [facility] External Department Unsolicited Start: 06-26-2024 Registered Recurring Sandra Sushma terrazas DO Work Phone: [facility]-Cancer Center Acute Work Phone: Start: 06-26-2024 End: 06-26-2024 Patient encounter procedure Sandra Keita DO Work Phone: [facility]-Lab [facility] [place] Work Phone: Start: 06-26-2024 End: 06-26-2024 ambulatory Sandra A Keita DO Work Phone: [facility] Work Phone: Start: 06-26-2024 End: 06-26-2024 Office outpatient visit 25 minutes Thuan Wise MD Work Phone: [facility] Comment on above: Typical atrial flutt er (Multi) (Primary Dx); Nonischemic cardiomyopathy (Multi); Hypercholesteremia; Hypertension, unspecified type; BMI 32.0-32.9,adult; Current smoker Start: 06-26-2024 End: 06-26-2024 ambulatory [facility] Ambulatory Start: 06-04-2024 Non-patient / Non-visit Sandrajacob Keita DO Work Phone: [facility] Work Phone: Start: 05-25-2024 End: 05-25-2024 Patient encounter procedure Sandra Keita DO Work Phone: [facility]-MRI [facility] [place] Work Phone: Start: 05-25-2024 End: 05-25-2024 ambulatory Sandra A Keita DO Work Phone: [facility] Work Phone: Start: 05-19-2024 End: 05-19-2024 Telephone encounter Oz Kincaid MD Work Phone: [facility] Start: 05-07-2024 End: 05-07-2024 ambulatory Sandra A Keita DO Work Phone: [facility] Work Phone: Start: 05-07-2024 End: 05-07-2024 Patient encounter procedure Sandra Debbie DO Work Phone: [facility] [place] Work Phone: Start: 04-28-2024 End: 04-30-2024 Evaluation and management of inpatient Sandra Debbie DO Work Phone: [facility] [place] [facility] Work Phone: Start: 04-28-2024 End: 04-28-2024 ambulatory Sandra Rebecca Keita DO Work Phone: [facility] Work Phone: Start: 04-28-2024 End: 04-28-2024 Patient encounter procedure Sandra Debbie DO Work Phone: [facility] Work Phone: Start: 04-28-2024 End: 04-28-2024 Patient encounter procedure Sandra Debbie DO Work Phone: [facility] Ambulatory Work Phone: Start: 04-27-2024 End: 04-27-2024 Emergency department patient visit Sandra Debbie DO Work Phone: [facility]-Emergency Room Work Phone: Start: 04-14-2024 End: 04-14-2024 External Result Encounter Nataliya Jane INDUSTRIAL MAINTENANCE REPAIRER Work Phone: [facility] External Department Unsolicited Start: 04-14-2024 End: 04-14-2024 External Result Encounter Nataliya Jane INDUSTRIAL MAINTENANCE REPAIRER Work Phone: [facility] External Department Unsolicited Start: 04-14-2024 End: 04-14-2024 Patient encounter procedure Sandra Keita DO Work Phone: [facility] Amb[facility] Work Phone: Start: 04-08-2024 End: 04-08-2024 Patient encounter procedure Karl Phi Amy DPM Work Phone: [facility] Comment on above: Ulcer of right foot, limited to breakdown of skin (CMS/HCC) (Primary Dx); Ulcer of right foot with fat layer exposed (CMS/HCC); 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) Start: 04-08-2024 End: 04-08-2024 ambulatory KARL Phi AMY Not Available Start: 04-07-2024 End: 04-07-2024 Bamboo flowsheet Oz Kincaid MD Work Phone: [facility] Start: 04-07-2024 End: 04-07-2024 Bamboo flowsheet Oz Kincaid MD Work Phone: [facility] Start: 04-07-2024 End: 04-07-2024 Office outpatient visit 15 minutes Oz Kincaid MD Work Phone: [facility] Comment on above: Cognitive decline (P rimary Dx); B12 deficiency; Neurogenic pain; Carpal tunnel syndrome, bilateral; Cervical paraspinal muscle spasm; Guyon syndrome, unspecified laterality; Granulocytosis Start: 04-07-2024 End: 04-07-2024 ambulatory OZ KINCAID Not Available Start: 03-25-2024 End: 03-25-2024 ambulatory [facility] Ambulatory Start: 03-25-2024 End: 03-25-2024 Office outpatient visit 10 minutes Thuan Wise MD Work Phone: [facility] Comment on above: Hypertension, unspec ified type; Typical atrial flutter (Multi) Start: 02-25-2024 End: 02-25-2024 Office outpatient visit 25 minutes Oz Kincaid MD Work Phone: [facility] Comment on above: Cognitive decline (P rimary Dx); Neurogenic pain; Carpal tunnel syndrome, bilateral; B12 deficiency Start: 02-25-2024 End: 02-25-2024 Bamboo flowsheet Oz Kincaid MD Work Phone: [facility] Start: 02-25-2024 End: 02-25-2024 Bamboo flowsheet Oz Kincaid MD Work Phone: [facility] Start: 02-25-2024 End: 02-25-2024 ambulatory OZ KINCAID Not Available Start: 02-14-2024 End: 02-14-2024 ambulatory Imad Asaad Facility:[facility] Start: 02-14-2024 End: 02-14-2024 Departed Referred Sandra Keita DO Work Phone: [facility]-Digestive Health Work Phone: Start: 02-10-2024 End: 02-10-2024 Bamboo flowsheet Karl Fritz DPM Work Phone: [facility] Start: 02-10-2024 End: 02-10-2024 Bamboo flowsheet Karl Fritz DPM Work Phone: [facility] Start: 02-10-2024 End: 02-10-2024 Office outpatient visit 15 minutes Karl Fritz DPM Work Phone: [facility] Comment on above: Ulcer of right foot, limited to breakdown of skin (CMS/HCC) (Primary Dx); Blister of right foot, subsequent encounter; 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); Ulcer of right foot with fat layer exposed (CMS/HCC) Start: 02-10-2024 End: 02-10-2024 ambulatory KARL FRITZ Not Available Start: 02-03-2024 End: 02-03-2024 ambulatory DO Sandra Keita Work Phone: [facility] Work Phone: Start: 02-03-2024 End: 02-03-2024 Patient encounter procedure DO Sandra Keita Work Phone: [facility] [place] Work Phone: Start: 01-27-2024 End: 01-27-2024 Bamboo flowsheet Karl Fritz DPM Work Phone: [facility] Start: 01-27-2024 End: 01-27-2024 Bamboo flowsheet Karl Fritz DPM Work Phone: [facility] Start: 01-27-2024 End: 01-27-2024 Office outpatient visit 15 minutes Karl Fritz DPM Work Phone: [facility] Comment on above: Ulcer of right foot, limited to breakdown of skin (CMS/HCC) (Primary Dx); Blister of right foot, subsequent encounter; 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) Start: 01-27-2024 End: 01-27-2024 ambulatory KARL FRITZ Not Available Start: 01-21-2024 End: 01-21-2024 Bamboo flowsheet Karl Fritz DPM Work Phone: [facility] Start: 01-21-2024 End: 01-21-2024 Bamboo flowsheet Karl Fritz DPM Work Phone: [facility] Start: 01-21-2024 End: 01-21-2024 Office outpatient visit 15 minutes Karl Fritz DPM Work Phone: [facility] Comment on above: Ulcer of right foot, limited to breakdown of skin (CMS/HCC) (Primary Dx); Blister of right foot, initial encounter; 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) Start: 01-21-2024 End: 01-21-2024 ambulatory KARL FRITZ Not Available Start: 01-15-2024 End: 01-15-2024 ambulatory DO Sandra Keita Work Phone: [facility] Work Phone: Start: 01-15-2024 End: 01-15-2024 Patient encounter procedure DO Sandra Debbie Work Phone: [facility] Neurosurgery Work Phone: Start: 01-08-2024 End: 01-10-2024 Telephone encounter Oz Kincaid MD Work Phone: [facility] Start: 01-07-2024 End: 01-07-2024 Bamboo flowsheet Karl Fritz DPM Work Phone: [facility] Start: 01-07-2024 End: 01-07-2024 Bamboo flowsheet Karl Fritz DPM Work Phone: [facility] Start: 01-07-2024 End: 01-07-2024 Office outpatient visit 25 minutes Oz Kincaid MD Work Phone: [facility] Comment on above: Lumbosacral radiculo mary jane at S1 (Primary Dx); Neurogenic pain; Cervical paraspinal muscle spasm; Lumbar paraspinal muscle spasm; Carpal tunnel syndrome, bilateral; B12 deficiency Start: 01-07-2024 End: 01-07-2024 Departed Referred DO Sandra Keita Work Phone: [facility] [place] Work Phone: Start: 01-07-2024 End: 01-07-2024 Office outpatient visit 25 minutes Karl Fritz DPM Work Phone: [facility] Comment on above: Ulcer of right foot, limited to breakdown of skin (CMS/HCC) (Primary Dx); Cellulitis of right foot Start: 01-07-2024 End: 01-07-2024 ambulatory DO Sandra Rebecca Keita Work Phone: [facility] Work Phone: Start: 01-06-2024 End: 01-06-2024 Patient encounter procedure DO Sandra Debbie Work Phone: [facility]-Ultrasound [place] Work Phone: Start: 01-06-2024 End: 01-06-2024 ambulatory DO Sandra A Keita Work Phone: [facility] Work Phone: Start: 01-03-2024 End: 01-03-2024 Clinical Support Oz Kincaid MD Work Phone: [facility] Comment on above: Carpal tunnel syndro me, bilateral (Primary Dx) Start: 01-03-2024 End: 01-03-2024 Bamboo flowsheet Oz Kincaid MD Work Phone: [facility] Start: 01-03-2024 End: 01-03-2024 Bamboo flowsheet Oz Kincaid MD Work Phone: [facility] Start: 12-17-2023 End: 12-17-2023 ambulatory DO Sandra A [facility] Work Phone: [facility] Work Phone: Start: 12-17-2023 End: 12-17-2023 Patient encounter procedure DO Sandra Keita Work Phone: [facility]-MRI [address] Work Phone: Start: 12-16-2023 End: 12-16-2023 ambulatory [facility] Ambulatory Start: 12-16-2023 End: 12-16-2023 Office outpatient visit 25 minutes Thuan Wise MD Work Phone: [facility] Comment on above: High risk medication use (Primary Dx); Typical atrial flutter (Multi); Nonischemic cardiomyopathy (Multi); Hypercholesteremia; BMI 28.0-28.9,adult; BMI 30.0-30.9,adult; Current smoker Start: 12-02-2023 End: 12-02-2023 ambulatory DO Sandra A Keita Work Phone: [facility] Work Phone: Start: 12-02-2023 End: 12-02-2023 Patient encounter procedure DO Sandra Keita Work Phone: [facility] [place] Work Phone: Start: 11-26-2023 End: 11-26-2023 ambulatory DO Sandra A Keita Work Phone: [facility] Work Phone: Start: 11-26-2023 End: 11-26-2023 Patient encounter procedure DO Sandra Keita Work Phone: [facility] [place] Work Phone: Start: 11-26-2023 End: 01-07-2024 External Result Encounter Oz Kincaid MD Work Phone: [facility] External Department Unsolicited Start: 11-26-2023 End: 01-07-2024 External Result Encounter Oz Kincaid MD Work Phone: [facility] External Department Unsolicited Start: 11-18-2023 End: 11-18-2023 ambulatory DO Sandra A Keita Work Phone: [facility] Work Phone: Start: 11-18-2023 End: 11-18-2023 Patient encounter procedure DO Sandra Keita Work Phone: [facility] [place] Work Phone: Start: 11-16-2023 Non-patient / Non-visit DO Millie jacob Keita Work Phone: [facility] Work Phone: Start: 11-15-2023 End: 11-15-2023 ambulatory DO Sandra A Keita Work Phone: [facility] Work Phone: Start: 11-15-2023 End: 11-15-2023 Patient encounter procedure DO Sandra Keita Work Phone: [facility]-Respiratory Therapy Work Phone: Start: 11-14-2023 End: 11-14-2023 ambulatory DO Sandra A Debbie Work Phone: [facility] Work Phone: Start: 11-14-2023 End: 11-14-2023 Patient encounter procedure DO Sandra Debbie Work Phone: [facility] Work Phone: Start: 11-13-2023 End: 11-13-2023 Office outpatient visit 25 minutes Jonas Ch MD Work Phone: [facility] Comment on above: Nonischemic cardiomy opathy (Multi) (Primary Dx); Typical atrial flutter (Multi); Hypercholesteremia; Primary hypertension; Current smoker; BMI 28.0-28.9,adult; High risk medication use Start: 11-13-2023 End: 11-13-2023 ambulatory JONAS CH [facility] Ambulatory Start: 11-13-2023 Non-patient / Non-visit DO Millie jacob Debbie Work Phone: [facility] [place] Work Phone: Start: 11-10-2023 End: 11-12-2023 Evaluation and management of inpatient DO Sandra Debbie Work Phone: [facility] Work Phone: Start: 11-05-2023 End: 11-05-2023 Admission to same day surgery center DO Sandra Debbie Work Phone: [facility]-Electrodiagnostics Work Phone: Start: 11-05-2023 End: 11-05-2023 ambulatory DO Sandra A Debbie Work Phone: [facility] Work Phone: Start: 10-30-2023 End: 01-07-2024 External Result Encounter Oz Kincaid MD Work Phone: [facility] External Department Unsolicited Start: 10-30-2023 End: 01-07-2024 External Result Encounter Oz Kincaid MD Work Phone: [facility] External Department Unsolicited Start: 10-30-2023 End: 10-30-2023 ambulatory DO Sandra A [facility] Work Phone: [facility] Work Phone: Start: 10-30-2023 End: 10-30-2023 Patient encounter procedure DO Snadra [facility] Work Phone: [facility] Work Phone: Start: 10-07-2023 End: 10-07-2023 Office outpatient visit 25 minutes Jonas Ch MD Work Phone: [facility] Comment on above: Typical atrial flutt er (Multi); Nonischemic cardiomyopathy (Multi); Hypertension, unspecified type; Hypercholesteremia; Smoker; Type 2 diabetes mellitus with other specified complication, unspecified whether care home insulin use (Multi); BMI 28.0-28.9,adult Start: 10-07-2023 End: 10-07-2023 ambulatory JONAS CH [facility] Ambulatory Start: 09-25-2023 End: 09-25-[facility] Start: 09-17-2023 End: 09-17-2023 ambulatory DO Sandra A Keita Work Phone: [facility] Work Phone: Start: 09-17-2023 End: 09-17-2023 Patient encounter procedure DO Sandra Keita Work Phone: [facility] Family [facility] [place] Work Phone: Start: 09-16-2023 Non-patient / Non-visit DO Millie jacob Keita Work Phone: [facility] Family [facility] [place] Work Phone: Start: 09-14-2023 End: 09-14-2023 Non-patient / Non-visit DO Sandra Debbie Work Phone: [facility] Cardiology Work Phone: Start: 09-13-2023 End: 09-14-2023 Evaluation and management of inpatient DO Sandra Keita Work Phone: [facility] [place] [facility] Work Phone: Start: 09-12-2023 End: 09-12-2023 Patient encounter procedure DO Sandra Keita Work Phone: [facility] Work Phone: Start: 09-09-2023 Non-patient / Non-visit DO Millie jacob Keita Work Phone: [facility] Family Medicine [place] Work Phone: Start: 09-05-2023 End: 09-05-2023 ambulatory DO Sandra A Keita Work Phone: [facility] Work Phone: Start: 09-05-2023 End: 09-05-2023 Patient encounter procedure DO Sandra Debbie Work Phone: [facility]Lab [facility] [place] Work Phone: Start: 07-25-2023 End: 07-25-2023 ambulatory DO Sandra A Keita Work Phone: [facility] Work Phone: Start: 07-25-2023 End: 07-25-2023 Patient encounter procedure DO Sandra Keita Work Phone: [facility] [address] Work Phone: Start: 07-17-2023 End: 07-17-2023 ambulatory [facility] Work Phone: Start: 07-17-2023 End: 07-17-2023 Patient encounter procedure [facility] Work Phone: Start: 06-19-2023 End: 06-19-2023 ambulatory [facility] Work Phone: Start: 06-19-2023 End: 06-19-2023 Patient encounter procedure [facility] Work Phone: Start: 06-12-2023 End: 06-12-2023 ambulatory [facility] Work Phone: Start: 06-12-2023 End: 06-12-2023 Patient encounter procedure [facility] Work Phone: Start: 06-10-2023 End: 06-10-2023 ambulatory Tondra Mapus Other [facility] Other Start: 06-10-2023 Telephone encounter Tondra Mapus [facility] Start: 05-21-2023 End: 05-21-2023 ambulatory Sandra Debbie Other [facility] Other Start: 05-21-2023 Telephone encounter Sandra Keita [facility] Start: 04-30-2023 End: 04-30-2023 ambulatory Tondra Mapus Other [facility] Other Start: 04-30-2023 Telephone encounter Tondra Mapus [facility] Start: 04-11-2023 End: 04-11-2023 ambulatory Sandra Keita Other [facility] Other Start: 04-11-2023 Telephone encounter Sandra Keita [facility] Start: 04-08-2023 End: 04-08-2023 ambulatory Sandra Keita Other [facility] Other Start: 04-08-2023 Telephone encounter Sandra MORRISON [facility] [place] Start: 03-05-2023 End: 03-05-2023 ambulatory DO Jonas Yoder Work Phone: [facility] Work Phone: Start: 03-05-2023 End: 03-05-2023 Patient encounter procedure DO Jonas Yoder Work Phone: [facility] Work Phone: Start: 03-04-2023 End: 03-04-2023 ambulatory Sandra Keita Other [facility] Other Start: 03-04-2023 Office outpatient vi sit 25 minutes Sandrajacob MORRISON [facility] Start: 01-28-2023 End: 01-28-2023 ambulatory Sandra Keita Other [facility] Other Start: 01-28-2023 Telephone encounter Sandra MORRISON [facility] Start: 01-07-2023 Registered Recurring DO Beba oYder Work Phone: [facility] Work Phone: Start: 01-07-2023 (DM) Diabetes Tondra Mapus [facility] Start: 01-07-2023 End: 01-07-2023 ambulatory Tondra Mapus Other [facility] Other Start: 01-02-2023 End: 01-02-2023 ambulatory Brayden Noble Other [facility] Other Start: 01-02-2023 Office outpatient vi sit 15 minutes Brayden Noble [facility] Start: 12-28-2022 End: 12-28-2022 ambulatory Sandra Keita Other [facility] Other Start: 12-28-2022 Telephone encounter Sandra Keita [facility] [place] Start: 12-18-2022 End: 12-18-2022 ambulatory Reyna Dallas Other [facility] Other Start: 12-18-2022 Telephone encounter Reyna Dallas [facility] Start: 12-10-2022 End: 12-10-2022 ambulatory Tondra Mapus Other [facility] Other Start: 12-10-2022 Telephone encounter Tondra Mapus [facility] Start: 11-28-2022 End: 11-28-2022 ambulatory Sandra Keita Other [facility] Other Start: 11-28-2022 Patient encounter procedure Sandra Keita [facility] Start: 11-27-2022 End: 11-27-2022 ambulatory Sandra Keita Other [facility] Other Start: 11-27-2022 Telephone encounter Sandra Keita [facility] Start: 11-06-2022 End: 11-06-2022 ambulatory Sandrarebecca Keita Other [facility] Other Start: 11-06-2022 Telephone encounter Sandra Keita [facility] Start: 09-27-2022 (DM) Diabetes Tondra Mapus [facility] Start: 09-27-2022 End: 09-27-2022 ambulatory Tondra Mapus Other [facility] Other Start: 09-10-2022 End: 09-10-2022 ambulatory Sandra Keita Other [facility] Other Start: 09-10-2022 Telephone encounter Sandrajacob Keita [facility] [place] Start: 09-05-2022 Telephone encounter Sandra Keita [facility] [place] Start: 09-05-2022 End: 09-05-2022 ambulatory DO Sandra Rebecca Keita Work Phone: [facility] Work Phone: Start: 09-05-2022 End: 09-05-2022 Patient encounter procedure DO Sandra Debbie Work Phone: [facility] Work Phone: Start: 08-22-2022 Telephone encounter Sandra Keita [facility] [place] Start: 08-22-2022 End: 08-22-2022 ambulatory DO Sandra Rebecca Keita Work Phone: [facility] Work Phone: Start: 08-22-2022 End: 08-22-2022 Patient encounter procedure DO Sandrarebecca Keita Work Phone: [facility] [address] Work Phone: Start: 08-09-2022 End: 08-09-2022 ambulatory Sandrarebecca Keita Other [facility] Other Start: 08-09-2022 Office outpatient vi sit 15 minutes Sandra Keita [facility] [place] Start: 08-06-2022 End: 08-06-2022 ambulatory Sandra Keita Other [facility] Other Start: 08-06-2022 Telephone encounter Sandra Keita [facility] [place] Start: 07-10-2022 End: 07-10-2022 ambulatory Sandra Keita Other [facility] Other Start: 07-10-2022 Telephone encounter Sandrajacob Keita [facility] [place] Start: 07-04-2022 End: 07-04-2022 ambulatory Tolu Jlvalerie Other [facility] Other Start: 07-04-2022 Telephone encounter Tolu Jlvalerie FP G [facility] [place] Start: 06-19-2022 End: 06-19-2022 ambulatory Tondra Mapus Other [facility] Other Start: 06-19-2022 Telephone encounter Tondra Mapus [facility] Start: 06-18-2022 (DM) Diabetes Tondra Mapus [facility] Start: 06-18-2022 End: 06-18-2022 ambulatory Tondra Mapus Other [facility] Other Start: 06-14-2022 End: 06-14-2022 ambulatory Tondra Mapus Other [facility] Other Start: 06-14-2022 Telephone encounter Tondra Mapus [facility] Start: 06-08-2022 End: 06-08-2022 ambulatory Tondra Mapus Other [facility] Other Start: 06-08-2022 Telephone encounter Tondra Mapus [facility] Start: 06-04-2022 End: 06-04-2022 ambulatory Sandra Keita Other [facility] Other Start: 06-04-2022 Telephone encounter Sandra Keita [facility] [place] Start: 05-30-2022 End: 05-30-2022 ambulatory Sandra Keita Other [facility] Other Start: 05-30-2022 Telephone encounter Sandra Keita [facility] Start: 05-24-2022 End: 05-24-2022 ambulatory Sandra Keita Other [facility] Other Start: 05-24-2022 Telephone encounter Sandra MORRISON [facility] [place] Start: 04-03-2022 End: 04-03-2022 ambulatory Sandra Keita Other [facility] Other Start: 04-03-2022 Telephone encounter Sandra Keita [facility] [place] Start: 02-14-2022 End: 02-14-2022 ambulatory Sandra Keita Other [facility] Other Start: 02-14-2022 Telephone encounter Sandra MORRISON [facility] [place] Start: 01-09-2022 (DM) Diabetes Tona Mapus [facility] Start: 01-09-2022 End: 01-09-2022 ambulatory Tondra Mapus Other [facility] Other Start: 12-21-2021 ambulatory Teresa Strong Facility:[facility] Start: 12-18-2021 ambulatory Francesca Turner lity:ENRIQUE Zarate Start: 12-17-2021 End: 12-17-2021 Emergency department patient visit DO Tray Randle [facility]Emergency Room Start: 12-13-2021 ambulatory Francesca Santos Facilemi ty:ENRIQUE Chun Start: 12-12-2021 End: 12-13-2021 ambulatory ARLEEN STEPHEN Facility:[id number] Start: 12-11-2021 End: 12-12-2021 ambulatory ARLEEN STEPHEN Facility:CD:[id number] Start: 12-09-2021 End: 12-13-2021 Evaluation and management of inpatient DO Tray Randle [facility] [place] [facility] Start: 10-12-2021 End: 10-12-2021 ambulatory Crispin Looney Other [facility] Other Start: 10-12-2021 Patient encounter procedure Crispin Looney [facility] [place] Start: 10-12-2021 Telephone encounter Crispin Looney [facility] [place] Start: 09-13-2021 End: 09-13-2021 ambulatory Crispin Looney Other [facility] Other Start: 09-13-2021 Telephone encounter Crispin Mejias [facility] [place] Start: 08-28-2021 End: 08-28-2021 ambulatory Tondra Mapus Other [facility] Other Start: 08-28-2021 Telephone encounter Tondra Mapus [facility] Start: 07-10-2021 (DM) Diabetes Tondra Mapus [facility] Start: 07-10-2021 End: 07-10-2021 ambulatory Tondra Mapus Other [facility] Other Start: 07-03-2021 End: 07-03-2021 ambulatory Kamal Characquel Other [facility] Other Start: 07-03-2021 Office outpatient ne w 30 minutes Kamdaja Hahn [facility] Start: 06-28-2021 End: 06-28-2021 ambulatory Crispin Looney Other [facility] Other Start: 06-28-2021 Telephone encounter Crispin Mejias [facility] [place] Start: 05-25-2021 End: 05-25-2021 ambulatory Crispin Looney Other [facility] Other Start: 05-25-2021 Telephone encounter Crispin Looney [facility] [place] Start: 05-08-2021 End: 05-08-2021 ambulatory Crispin Looney Other [facility] Other Start: 05-08-2021 Office outpatient ne w 45 minutes Crispin Looney [facility] [place] Start: 04-11-2021 End: 04-11-2021 ambulatory Angelique Russell Other [facility] Other Start: 04-11-2021 Telephone encounter Angelique Russell [facility] Start: 04-03-2021 End: 04-03-2021 ambulatory Tray Langpratibha Other [facility] Other Start: 04-03-2021 Office outpatient vi sit 15 minutes Tray Nava [facility] V[facility] Surgery Start: 03-27-2021 (DM) Diabetes Angelique Russell [facility] Start: 03-27-2021 End: 03-27-2021 ambulatory Tondrrebecca Pattersonus Other [facility] Other Start: 02-27-2021 End: 02-27-2021 ambulatory Tray Langpratibha Other [facility] Other Start: 02-27-2021 Office outpatient vi sit 15 minutes Tray Nava [facility] V[facility] Surgery Start: 05-16-2017 End: 05-16-2017 Ambulatory MATTHEW BIPIN Facility:UNKNOWN Start: 01-25-2017 End: 01-26-2017 Ambulatory ELOISA PRETTY Facility:H1 Procedures Date Procedure Procedure Detail Performing Clinician Start: 11-16-2024 Radex foot complete minimum 3 views Karl Fritz DPM Work Phone: Start: 11-16-2024 SUPERFICIAL WOUND CULTURE ([facility]) Razia Fritz DPM Work Phone: Start: 11-16-2024 Aerobic microbial culture Sandra Mendoza Work Phone: Start: 09-10-2024 Esophagogastroduodenoscopy Sandra Keita DO Work Phone: Start: 07-06-2024 Urine culture Sandrarebecca Keita DO Work Phone: Start: 06-26-2024 Complete blood count with white cell differential, automated Nataliya Jane INDUSTRIAL MAINTENANCE REPAIRER Other Phone: Start: 06-26-2024 Ecg routine ecg w/least 12 lds w/i&r Thuan Wise MD Work Phone: Start: 05-25-2024 MRI of head Sandrarebecca Keita DO Work Phone: Start: 04-29-2024 Urine culture Sandrarebecca Keita DO Work Phone: Start: 04-28-2024 CT angiography of head Sandrarebecca Keita DO Work Phone: Start: 04-28-2024 CT angiography of neck vessels Sandra terrazas DO Work Phone: Start: 04-28-2024 CT of head without contrast Sandrarebecca Keita DO Work Phone: Start: 04-28-2024 Plain chest X-ray Sandrarebecca Keita DO Work Phone: Start: 04-28-2024 Respiratory Panel (PCR) aSndra Keita DO Work Phone: Start: 04-14-2024 Complete blood count with white cell differential, automated Nataliya Jane INDUSTRIAL MAINTENANCE REPAIRER Work Phone: Start: 04-14-2024 Comprehensive metabolic panel Nataliya Child INDUSTRIAL MAINTENANCE REPAIRER Work Phone: Start: 04-14-2024 PATHOLOGIST SLIDE REVIEW ([facility]) Nataliya ward INDUSTRIAL MAINTENANCE REPAIRER Work Phone: Start: 03-25-2024 Ecg routine ecg w/least 12 lds w/i&r Thuan Wise MD Work Phone: Start: 01-07-2024 Aerobic microbial culture DO Sandra maza Work Phone: Start: 01-06-2024 Duplex scan of lower limb veins DO [place]dal[place] rebecca Keita Work Phone: Start: 12-17-2023 MR lumbar [...] Oz Kincaid MD Work Phone: Start: 11-26-2023 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 Oz Kincaid MD Work Phone: Start: 11-26-2023 [...] Sandra Keita Work Phone: Start: 10-30-2023 Thyrotropin [Units/volume] in Serum or Plasma Jonas Ch MD Work Phone: Start: 09-12-2023 Plain chest X-ray DO Sandra Keita Work Phone: Start: 07-25-2023 CT of lungs DO Sandra Keita Work Phone: Start: 03-05-2023 Dual energy X-ray absorptiometry DO Kevin Yoder Work Phone: Start: 09-05-2022 Screening mammography of bilateral breasts DO Sandra Keita Work Phone: Start: 08-22-2022 CT of lungs DO Sandra Keita Work Phone: Start: 12-17-2021 Computed tomography of abdomen and pelvis with contrast DO Tray Randle Start: 12-12-2021 Diagnostic laparoscopy DO Tray hernandez Start: 12-09-2021 US scan of gallbladder DO Tray hernandez Start: 12-09-2021 CT of abdomen and pelvis without contrast DO Tray Randle Start: 06-10-2020 Mammography Jonsa Ch MD Work Phone: Start: 12-17-2018 Antibody screen Comment on above: Performed By: #### [id number] #### [facility] [address] [place] [address] Blood culture for ba cteria, including anaerobic screen DO Tray Jer SARS Antigen (LFIA) DO Sunni umu Randle Urine culture DO Tray Arturo yates Urine culture DO Tray Arturo yates Plan of Treatment Date Care Activity Detail Author Start: 01-19-2025 End: 01-19-2025 Patient encounter procedure [facility] Start: 12-30-2024 End: 12-30-2024 Patient encounter procedure 12/30/2024 1:40 PM EDT Office Visit [facility] [address] [facility] [address] [place] [address] Thuan Wise MD [address] [facility] [address] [place] [address] [facility] Start: 12-18-2024 End: 12-18-2024 Patient encounter procedure [facility] Start: 12-11-2024 End: 12-11-2024 Patient encounter procedure [facility] Start: 11-30-2024 End: 11-30-2024 Patient encounter procedure 11/30/2024 1:15 PM EDT Office Visit [facility] [place] [facility] [address] [place] [phone] Karl Fritz DPM [address] [place] [address] [facility] [place] [facility] Start: 11-23-2024 End: 11-23-2024 Patient encounter procedure [facility] Comment on above: Arrived Start: 11-16-2024 Superficial Wound Culture Superficial Wound Culture [facility] Start: 10-29-2024 Thyroid stimulating hormone measurement TSH Level [facility] Start: 10-28-2024 End: 10-28-2024 Patient encounter procedure 10/28/2024 4:00 PM EDT Office Visit [facility] [address] [place] [phone] Karl Fritz, DPM [address] [place] [address] [facility] Start: 10-23-2024 End: 10-23-2024 Patient encounter procedure 10/23/2024 12:00 PM EDT Procedure Visit [facility] [address] [place] [phone] Oz Kincaid MD [address] [facility] [address] [address] [facility] Start: 10-20-2024 End: 10-20-2024 Patient encounter procedure 10/20/2024 10:45 AM EDT Office Visit [facility] [address] [place] [phone] Karl Fritz, DPM [address] [place] [address] Arrived [facility] Comment on above: Arrived Start: 10-06-2024 End: 10-06-2025 EMG AND NERVE CONDUCTION STUDY EMG AND NERVE CONDUCTION STUDY Neurology Routine Numbness Leg pain, left Leg pain, right Bilateral leg weakness Expected: 10/06/2024 (Approximate), Expires: 10/06/2025 [facility] Work Phone: Comment on above: Expected: 10/06/2024 (Approximate), Expi res: 10/06/2025 Start: 10-06-2024 End: 10-06-2024 Patient encounter procedure [facility] Comment on above: Arrived Start: 09-10-2024 End: 09-10-2024 [facility] Start: 09-07-2024 Patient referral [facility] Work Phone: Start: 08-25-2024 Patient referral [facility] Work Phone: Start: 07-22-2024 Ankle brachial pressure index [facility] Start: 07-06-2024 Urine culture [facility] Start: 07-06-2024 Bacteria identified in Urine by Culture Urine Culture [facility] Start: 06-26-2024 [facility] Start: 05-26-2024 End: 05-26-2024 Patient encounter procedure 05/26/2024 2:40 PM EST Office Visit [facility] [address] [facility] [address] [place] [phone] Thuan Wise MD [address] [place] [address] [facility] Start: 05-07-2024 End: 05-07-2024 Patient encounter procedure 05/07/2024 2:15 PM EST Office Visit [facility] [address] [place] [phone] Karl Fritz DPM [address] [place] [address] [facility] Start: 04-30-2024 [facility] Start: 04-29-2024 End: 04-29-2024 Urine culture [facility] Start: 04-29-2024 Referral to neurologist [facility] Start: 04-29-2024 [facility] Start: 04-28-2024 Hospital admission [facility] Start: 04-28-2024 [facility] Start: 04-07-2024 End: 04-07-2024 Patient encounter procedure 04/07/2024 3:30 PM EST Office Visit [facility] [address] [place] [phone] Karl Fritz, DPM [address] [place] [address] [facility] Start: 04-07-2024 End: 04-07-2024 Patient encounter procedure [facility] Comment on above: Arrived Start: 03-27-2024 End: 03-27-2024 Patient encounter procedure 03/27/2024 10:10 AM EST Office Visit [facility] [address] [place] [address] Thuan Wise MD [address] [place] [address] [facility] Start: 03-24-2024 End: 03-24-2024 Patient encounter procedure 03/24/2024 1:30 PM EST Office Visit [facility] [address] [place] [phone] Karl Fritz, DPM [address] [place] [address] [facility] Start: 03-10-2024 End: 03-10-2024 Patient encounter procedure 03/10/2024 1:30 PM EST Office Visit [facility] [address] [place] [phone] Karl Fritz, DPM [address] [place] [address] [facility] Start: 02-25-2024 End: 02-25-2024 Patient encounter procedure [facility] Comment on above: Arrived Start: 02-10-2024 End: 02-10-2024 Patient encounter procedure [facility] Comment on above: Arrived Start: 01-28-2024 End: 01-28-2024 Patient encounter procedure 01/28/2024 1:30 PM EDT Office Visit [facility] [address] [place] [phone] Oz Kincaid MD [address] [id number] [facility] Start: 01-27-2024 End: 01-27-2024 Patient encounter procedure [facility] Comment on above: Arrived Start: 01-21-2024 End: 01-21-2024 Patient encounter procedure 01/21/2024 11:00 AM EDT Office Visit [facility] [address] [place] [phone] Karl Fritz DPM [address] [place] [address] Arrived [facility] Comment on above: Arrived Start: 01-07-2024 Superficial Wound Culture Superficial Wound Culture [facility] Start: 01-07-2024 End: 01-06-2025 SUPERFICIAL WOUND CULTURE ([facility]) SUPERFICIAL WOUND CULTURE ([facility]) Microbiology Routine Ulcer of right foot, limited to breakdown of skin (CMS/HCC) Cellulitis of right foot Expected: 01/07/2024 (Approximate), Expires: 01/06/2025 [facility] Work Phone: Comment on above: Expected: 01/07/2024 (Approximate), Expi res: 01/06/2025 Start: 01-07-2024 End: 01-07-2024 Patient encounter procedure 01/07/2024 1:15 PM EDT Office Visit [facility] [address] [place] [phone] Oz Kincaid MD [address] [address] [facility] Start: 01-07-2024 End: 01-07-2024 Patient encounter procedure 01/07/2024 9:45 AM EDT Office Visit [facility] [address] [place] [phone] Karl Fritz DPM [address] [place] [address] Arrived [facility] Comment on above: Arrived Start: 01-06-2024 Duplex scan of lower limb veins US venous duplex LE BI [facility] Start: 01-06-2024 US Lower extremity vein - bilateral [facility] Start: 12-29-2023 COVID-19 Vaccine ( season) COVID-19 Vaccine () [facility] Start: 12-29-2023 Influenza vaccination [facility] Start: 12-02-2023 Blood zinc measurement [facility] Start: 12-02-2023 End: 12-02-2023 [facility] Start: 11-26-2023 Antibody to Scl-70 measurement [facility] Start: 11-26-2023 AQUATIC LIFE LABORER antibody measurement [facility] Start: 11-26-2023 [facility] Start: 11-13-2023 End: 11-12-2024 Aspartate aminotransferase [Enzymatic activity/volume] in Serum or Plasma by With P-5'-P Aspartate Aminotransferase Lab Routine High risk medication use Expected: 11/13/2023 (Approximate), Expires: 11/12/2024 [facility] Service Area Work Phone: Comment on above: Expected: 11/13/2023 (Approximate), Expi res: 11/12/2024 Start: 11-13-2023 End: 11-12-2024 Basic metabolic 2000 panel - Serum or Plasma Basic Metabolic Panel Lab Routine High risk medication use Expected: 11/13/2023 (Approximate), Expires: 11/12/2024 [facility] Work Phone: Comment on above: Expected: 11/13/2023 (Approximate), Expi res: 11/12/2024 Start: 11-13-2023 End: 11-12-2024 Complete Pulmonary Function Test (Spirometry/DLCO/Lung Volumes) Complete Pulmonary Function Test (Spirometry/DLCO/Lung Volumes) PFT Routine Typical atrial flutter (Multi) Expected: 11/13/2023 (Approximate), Expires: 11/12/2024 [facility] Work Phone: Comment on above: Expected: 11/13/2023 (Approximate), Expi res: 11/12/2024 Start: 11-13-2023 End: 11-13-2023 Patient encounter procedure 11/13/2023 2:00 PM EDT Office Visit [facility] [address] [facility] [address] [place] [id number] Jonas Ch MD [address] [facility] [place] [address] [facility] Start: 11-13-2023 End: 11-12-2024 Thyrotropin [Units/volume] in Serum or Plasma Thyroid Stimulating Hormone Lab Routine High risk medication use Expected: 11/13/2023 (Approximate), Expires: 11/12/2024 [facility] Work Phone: Comment on above: Expected: 11/13/2023 (Approximate), Expi res: 11/12/2024 Start: 11-13-2023 End: 11-12-2024 XR Chest 2 Views XR chest 2 views Imaging Routine Typical atrial flutter (Multi) Expected: 11/13/2023 (Approximate), Expires: 11/12/2024 [facility] Work Phone: Comment on above: Expected: 11/13/2023 (Approximate), Expi res: 11/12/2024 Start: 11-12-2023 [facility] Start: 11-11-2023 [facility] Start: 11-10-2023 Bacteria identified in Urine by Culture [facility] Start: 11-10-2023 Referral to neurologist [facility] Start: 11-10-2023 Hospital admission [facility] Start: 11-10-2023 Physical therapy procedure [facility] Start: 11-10-2023 Referral to occupational therapist [facility] Start: 11-10-2023 [facility] Start: 11-10-2023 [facility] Start: 11-05-2023 [facility] Start: 10-30-2023 Blood zinc measurement [facility] Start: 10-30-2023 [facility] Start: 10-28-2023 End: 10-06-2025 Cardioversion External Cardioversion External Cardiac Services Routine Typical atrial flutter (Multi) Expected: 10/28/2023 (Approximate), Expires: 10/06/2025 [facility] Service Area Work Phone: Comment on above: Expected: 10/28/2023 (Approximate), Expi res: 10/06/2025 Start: 09-14-2023 [facility] Start: 09-12-2023 Referral to audit mgr [facility] Start: 09-12-2023 Hospital admission [facility] Start: 12-28-2022 COVID-19 Vaccine ( season) COVID-19 Vaccine ( season) [facility] Start: 12-17-2021 Computed tomography of abdomen and pelvis with contrast CT abdomen pelvis w con [facility] Start: 12-17-2021 End: 12-17-2021 Emergency department patient visit Departed Emergency [facility] Start: 12-13-2021 [facility] Work Phone: Start: 12-11-2021 Referral to urologist [facility] Work Phone: Start: 12-11-2021 Referral to general surgeon [facility] Work Phone: Start: 12-09-2021 Hospital admission [facility] Work Phone: Start: 06-10-2021 Screening for malignant neoplasm of breast Mammogram [facility] Start: 2017 RSV High Risk: (Elderly (60+) or Population) (1 - Risk 60-74 years 1-dose series) RSV High Risk: (Elderly (60+) or Population) (1 - Risk 60-74 years 1-dose series) [facility] Start: 2017 RSV patients and/or patients aged 60+ years (1 - 1-dose 60+ series) RSV patients and/or patients aged 60+ years (1 - 1-dose 60+ series) [facility] Start: 11-26-2007 Zoster Vaccines (1 of 2) Zoster Vaccines (1 of 2) [facility] Start: 11-26-1979 DTaP/Tdap/Td Vaccines (1 - Tdap) DTaP/Tdap/Td Vaccines (1 - Tdap) [facility] Start: 1978 Screening for malignant neoplasm of cervix [facility] Start: 1976 Pneumococcal vaccination Pneumococcal Vaccine (1 of 2 - PCV) [facility] Start: 1976 Urine screening for protein Diabetes: Urine Protein Screening [facility] Start: 11-26-1975 Hepatitis C screening Hepatitis C Screening [facility] Start: 11-26-1967 Diabetic foot examination Diabetes: Foot Exam [facility] Start: 11-26-1967 Glaucoma screening Diabetes: Retinopathy Screening [facility] Start: 11-26-1963 Pneumococcal Vaccine: 65+ Years (1 of 2 - PCV) Pneumococcal Vaccine: 65+ Years (1 of 2 - PCV) [facility] Start: 1958 MMR Vaccines (1 of 1 - Standard series) MMR Vaccines (1 of 1 - Standard series) [facility] Start: 1957 Annual wellness visit [facility] Start: 1957 Hemoglobin A1c measurement Diabetes[facility] Lipid panel Lipid Panel [facility] Start: 1957 Medicare Annual Wellness Visit Medicare Annual Wellness Visit (AWV) [facility] Start: 1957 Screening for malignant neoplasm of colon [facility] Start: 1957 Screening for osteoporosis Bone Density Scan [facility] Start: 1957 Thyroid stimulating hormone measurement TSH Level [facility] Start: 1957 Urine screening for protein Diabetes: Urine Protein Screening [facility] 24 hour urine measurement [facility] Albumin [Mass/volume ] in Serum or Plasma [facility] Albumin/Globulin ratio [facility] Aldolase measurement [facility] Angiotensin converti ng enzyme [Enzymatic activity/volume] in Serum or Plasma [facility] Antibody measurement [facility] Arsenic measurement [facility] Bacteria identified in Unspecified specimen by Aerobe culture [facility] Bacteria identified in Unspecified specimen by Aerobe culture [facility] Borrelia burgdorferi Ab [Interpretation] in Serum [facility] Borrelia burgdorferi IgG Ab [Presence] in Serum or Plasma by Immunoassay [facility] Borrelia burgdorferi IgG+IgM Ab [Presence] in Serum by Immunoassay [facility] Borrelia burgdorferi IgM Ab [Presence] in Serum or Plasma by Immunoassay [facility] Centromere protein B Ab [Units/volume] in Serum [facility] Ceruloplasmin [Mass/ volume] in Serum or Plasma [facility] Ceruloplasmin [Mass/ volume] in Serum or Plasma [facility] Complement C3 [Mass/ volume] in Serum or Plasma [facility] Complement C4 [Mass/ volume] in Serum or Plasma [facility] Comprehensive metabo lic 1999 panel - Serum or Plasma [facility] Comprehensive metabo lic 1999 panel - Serum or Plasma [facility] Comprehensive metabo lic 1999 panel - Serum or Plasma [facility] Copper measurement [facility] Cryoglobulin [Presen ce] in Serum [facility] Electrophoresis: [id number] [facility] Electrophoresis: [id number] [facility] Electrophoresis: beta-globulin [facility] Electrophoresis: gaby ma globulin [facility] FLOWCYTOMETRY NEOGENOMIC FLOWCYT OMETRY NEOGENOMIC Lab Routine 06/26/2024 10:44 AM EST [facility] [employer] Work Phone: Globulin [Mass/volum e] in Serum [facility] Glucose measurement estimated from glycated hemoglobin [facility] Hepatitis A virus an tibody, IgM type [facility] Hepatitis B core ant ibody measurement, IgM type [facility] Hepatitis B virus razo rface Ag [Presence] in Serum or Plasma by Immunoassay [facility] Hepatitis C virus Ig G Ab [Presence] in Serum or Plasma by Immunoassay [facility] Hepatitis C virus RN A [log units/volume] (viral load) in Serum or Plasma by TEJINDER with probe detection [facility] Hepatitis C virus RN A [Units/volume] (viral load) in Serum or Plasma by TEJINDER with probe detection [facility] Histone IgG Ab [Units/volume] in Serum by Immunoassay [facility] HIV 1+2 Ab+HIV1 p24 Ag [Presence] in Serum or Plasma by Immunoassay [facility] Homocysteine [Moles/ volume] in Serum or Plasma [facility] Homogenous nuclear A b pattern [Titer] in Serum [facility] Homogenous nuclear A b pattern [Titer] in Serum [facility] IgA [Mass/volume] in Serum or Plasma [facility] IgG [Mass/volume] in Serum or Plasma [facility] IgM [Mass/volume] in Serum or Plasma [facility] Immunofixation for Urine [facility] Sushma-1 extractable nuc lear Ab [Units/volume] in Serum [facility] Lead [Presence] in Blood [facility] Lutropin [Units/volu me] in Serum or Plasma [facility] Measurement of monoc lonal protein concentration [facility] Mercury [Mass/volume ] in Blood [facility] Methylmalonate [Moles/volume] in Serum or Plasma [facility] MG Breast - bilatera l Screening [facility] Mitochondria M2 IgG Ab [Units/volume] in Serum [facility] MR Cervical spine WO contrast [facility] MR Thoracic spine [facility] Myeloperoxidase Ab [Units/volume] in Serum by Immunoassay [facility] Neutrophil cytoplasm ic Ab.classic [Titer] in Serum by Immunofluorescence [facility] Nuclear Ab [Titer] in Serum [facility] Nuclear Ab [Titer] in Serum [facility] P-ANCA measurement [facility] Patient Education [facility] Work Phone: [facility] referral [facility] Work Phone: Porphobilinogen [Mass/volume] in Urine [facility] Protein [Mass/volume ] in Serum or Plasma [facility] Protein [Mass/volume ] in Urine [facility] Proteinase 3 Ab [Units/volume] in Serum by Immunoassay [facility] Pyridoxine [Mass/vol ume] in Serum or Plasma [facility] Reagin Ab [Presence] in Serum by RPR [facility] Rheumatoid factor [Units/volume] in Serum or Plasma [facility] Ribosomal P Ab [Units/volume] in Serum [facility] Serum immunofixation [facility] Sjogrens syndrome-A extractable nuclear Ab [Units/volume] in Serum [facility] Sjogrens syndrome-B extractable nuclear Ab [Units/volume] in Serum [facility] Fritz extractable nu clear Ab [Units/volume] in Serum [facility] SUPERFICIAL WOUND CU LTURE ([facility]) [facility] Work Phone: Comment on above: Ordered: 11/16/2024 Thallium [Mass/volum e] in Serum or Plasma [facility] West Nile virus IgG Ab [Presence] in Serum by Immunoassay [facility] West Nile virus IgM Ab [Presence] in Serum by Immunoassay [facility] Immunizations Immunization Date Immunization Notes Care Provider Radha pruitt 04-02-2002 measles, mumps and rubella virus vaccine Sandra Keita Other [facility] NEGATED: Highlighted row has not occurred!03-04-2023 Flu Shot - Documentation Purposes Only Sandra Keita Other [facility] Other NEGATED: Highlighted row has not occurred!04-16-2022 influenza, seasonal, injectable Patient Objection Sandra Keita Other [facility] Payers Date Payer Category Payer Medicare [id number] 2024 Self-pay [id number] 2023 Medicare [id number] 2023 Dual Eligibility Medicare/Medicaid Organization [facility] DUAL COMPLETE [id number] 2023 Private Health Insurance [facility] DUAL COMPLETE [facility] DUAL COMPLETE [id number] 2023-Present [address] [address] [place] [address] [id number] .[id number] 2022 Medicare [id number] 2.16.840.1.518407.19 2022 Medicare [id number] [id number] .[id number] 2022 Medicare (Managed Care) [facility] [id number] 2022 Private Health Insurance [id number] 2021 Medicaid [id number] 2021 Blue Cross Blue [facility] [id number] 2.16.840.1.979678.19 2017 Unknown [id number] 1959 Medicaid [id number] 1957 Unknown [id number] 2.16.840.1.363586.3.579.2 .727 1957 Unknown [id number] 2.16.840.1.312630.3.579.2 .72 1957 Unknown [id number] 2.16.840.1.229870.3.579.2 .1957 Unknown [id number] 2.16.840.1.623516.3.579.2 .72 1957 Unknown [id number] 2.16.840.1.081246.3.579.2 .72 1957 Unknown [id number] 2.16.840.1.472469.3.579.2 .1243 1957 Unknown [id number] 2.16.840.1.949986.3.579.2 .1243 1957 Unknown [id number] 2.16.840.1.067765.3.579.2 .1243 1957 Unknown [id number] 2.16.840.1.884381.3.579.2 .1243 1957 Unknown [id number] 2.16.840.1.493838.3.579.2 .1243 1957 Unknown [id number] 2.16.840.1.228822.3.579.2 .1243 1957 Unknown [id number] 2.16.840.1.533296.3.579.2 .1243 1957 Unknown [id number] 2.16.840.1.213217.3.579.2 .196 1957 Unknown [id number] 2.16.840.1.974978.3.579.2 .196 1957 Unknown [id number] 2.16.840.1.388789.3.579.2 .1258 1957 Unknown [id number] 2.16.840.1.746376.3.579.2 .1258 1957 Unknown [id number] 2.16.840.1.968241.3.579.2 .1258 1957 Unknown [id number] 2.16840.1.767597.3.579.2 .1258 1957 Unknown [id number] 2.16840.1.343983.3.579.2 .1258 1957 Unknown [id number] 2.840.1.665098.3.579.2 .1258 1957 Unknown [id number] 2.16840.1.584471.3.579.2 .1258 1957 Unknown [id number] 2.16840.1.846171.3.579.2 .1258 1957 Unknown [id number] 2.16840.1.714585.3.579.2 .1258 1957 Unknown [id number] 2.16840.1.742347.3.579.2 .1258 1957 Unknown [id number] 2.16840.1.288447.3.579.2 .1258 1957 Unknown [id number] 2.16840.1.906049.3.579.2 .1258 1957 Unknown [id number] 2.16840.1.841468.3.579.2 .1258 1957 Unknown [id number] 2.16840.1.613056.3.579.2 .1258 1957 Unknown [id number] 2.16.840.1.051102.3.579.2 .1259 Medicare [id number] 2.16.840.1.420672.19 Unknown [id number] 2.16.840.1.327617.3.579.2 .531 Unknown [id number] 2.16.840.1.400317.3.579.2 .531 Unknown [id number] 2.16.840.1.186682.3.579.2 .531 Unknown [id number] 2.16.840.1.704151.3.579.2 .531 Unknown [id number] 2.16.840.1.978817.3.579.2 .531 Unknown [id number] 2.16.840.1.489795.3.579.2 .531 Unknown [id number] 2.16.840.1.512470.3.579.2 .531 Unknown [id number] 2.16.840.1.629472.3.579.2 .531 Unknown [id number] 2.16.840.1.272537.3.579.2 .531 Unknown [id number] 2.16.840.1.734637.3.579.2 .531 Unknown [id number] 2.16.840.1.102942.3.579.2 .531 Unknown [id number] 2.16.840.1.894059.3.579.2 .531 Social History Date Type Detail Facility Unknown if ever smoked [facility] Other Start: 10-07-2023 End: 11-23-2024 Sex Assigned At [employer] Other Start: 12-17-2021 End: 09-10-2024 Tobacco smoking status [facility] Smoker (finding) [facility] Start: 1955 Sex Assigned At Female F [facility] Start: 10-07-2023 End: 09-10-2024 Tobacco smoking status NHIS Smokes tobacco daily [facility] Start: 04-29-1975 History of tobacco use Cigarette Smo ker [facility] Work Phone: Start: 10-07-2023 Tobacco use and exposure Smokeless tobacco non-user [facility] Work Phone: Start: 10-07-2023 End: 11-23-2024 Alcoholic beverage intake Lifetime non-drinker (finding) [facility] Work Phone: Start: 10-07-2023 End: 11-23-2024 History of Social function [facility] Work Phone: Start: 1955 [facility] Start: 09-27-2023 End: 06-26-2024 Exposure to SARS-CoV-2 (event) Not sure [facility] Start: 01-29-2023 Tobacco use and exposure User of smokeless tobacco [facility] Start: 01-29-2023 Tobacco Comment Smokes 11-20 c igs per day [facility] Start: 01-09-2023 Alcohol Comment caffeine intak e: occasional [facility] Start: 04-29-2024 End: 10-01-2024 Sex Female (finding) [facility] Medical Equipment Procedure Code Equipment Code [...] Facility 04-30-2024 Functional status Patient at Baseline [facility] Work Phone: 11-12-2023 Functional status Patient at Baseline [facility] Work Phone: 09-14-2023 Functional status Patient at Baseline [facility] Work Phone: 12-13-2021 Functional status Patient at Baseline [facility] Work Phone: Mental Status Date Assessment Result Facility 04-30-2024 Cognitive function Cognitive Sta tus Patient at Baseline [facility] Work Phone: 11-12-2023 Cognitive function Cognitive Sta tus Patient at Baseline [facility] Work Phone: 09-14-2023 Cognitive function Cognitive Sta tus Patient at Baseline [facility] Work Phone: 12-13-2021 Cognitive function Cognitive Sta tus Patient at Baseline [facility] Work Phone: Clinical Notes 02-27-2021 to 12-11-2024 Oz Kincaid MD - 12/11/2024 1:15 PM EDTCreema Fritz DPM - 11/23/2024 2:45 PM JUANTCreema Fritz DPM - 11/16/2024 4:00 PM EDTTelephone Encounter - Cali Duque - 10/21/2024 2:44 PM EDT Note Date & Type Note Facility 12-11-2024 History of Presen t illness Narrative [facility] Patient: Taye Gay [address], [address] , Sex: 1955, Female [place], [place] [address] Height: 168 cm Ref Phys: Debbie Kincaid fax Electroneuromyogram ([facility]) Test Date: 2024-12-11 Patient Complaints: Weakness B hands, worsening. R CT release ~2020. Nerve Conduction Studies Anti Sensory Summary Table Site NR Peak (ms) Norm Peak (ms) P-T* Amp ( V) Norm P-T Amp Site1 Site2 Delta-0 (ms) Dist (cm) Melvin (m/s) Norm Melvin (m/s) Left Median Anti Sensory (2nd Digit) questionable Wrist 4.6 4.4 >4.59 Wrist 2nd Digit 3.8 16.5 43 >48.9 Right Median Anti Sensory (2nd Digit) Wrist NR >4.59 Wrist 2nd Digit 18.0 >48.9 Left Radial Anti Sensory (Snuff Box) Wrist 2.8 9.7 >9.99 Wrist Snuff Box 2.4 12.0 50 >55.9 Right Radial Anti Sensory (Snuff Box) Wrist 3.1 12.4 >9.99 Wrist Snuff Box 2.5 12.0 48 >55.9 Left Ulnar Anti Sensory (5th Digit) dispersed Wrist 3.8 5.0 >3.69 Wrist 5th Digit 2.8 15.5 55 >45.9 Right Ulnar Anti Sensory (5th Digit) Wrist 3.6 2.2 >3.69 Wrist 5th Digit 3.2 14.5 45 >45.9 Ortho Sensory Summary Table Site NR Onset (ms) Peak (ms) Norm Peak (ms) P-T* Amp ( V) Norm P-T Amp Site1 Site2 Delta-0 (ms) Dist (cm) Melvin (m/s) Norm Melvin (m/s) Left Ulnar Ortho Ortho Sensory (Wrist) Dig V NR Dig V Wrist 8.0 Right Ulnar Ortho Ortho Sensory (Wrist) Dig V 3.0 3.6 5.8 Dig V Wrist 3.0 8.0 27 Motor Summary Table Site NR Onset (ms) Norm Onset (ms) O-P* Amp (mV) Norm O-P Amp Neg Dur (ms) Site1 Site2 Delta-0 (ms) Dist (cm) Melvin (m/s) Norm Melvin (m/s) Left Median Motor (APB) Wrist 4.7 <4.01 5.6 >4.99 5.94 Wrist APB 4.7 8.0 17 Elbow 9.7 5.0 >4.99 5.78 Elbow Wrist 5.0 18.0 36 >49.9 Right Median Motor (APB) Wrist 5.3 <4.01 5.5 >4.99 5.94 Wrist APB 5.3 8.0 15 Elbow 9.4 4.9 >4.99 6.41 Elbow Wrist 4.1 18.0 44 >49.9 Left Ulnar Motor (ADM) dispersed Wrist 3.6 <3.61 1.6 >4.99 6.56 Wrist ADM 3.6 8.0 22 B Elbow 7.2 1.5 >4.99 7.03 B Elbow Wrist 3.6 15.0 42 >46.9 A Elbow 9.1 1.4 >4.99 6.88 A Elbow B Elbow 1.9 8.0 42 >42.9 A Elbow Wrist 5.5 25.0 45 Right Ulnar Motor (ADM) Wrist 3.9 <3.61 2.7 >4.99 4.84 Wrist ADM 3.9 8.0 21 B Elbow 7.2 2.1 >4.99 5.78 B Elbow Wrist 3.3 18.0 55 >46.9 A Elbow 9.2 2.3 >4.99 6.41 A Elbow B Elbow 2.0 8.0 40 >42.9 A Elbow Wrist 5.3 26.0 49 Ortho Mixed Summary Table Site NR Onset (ms) Peak (ms) Norm Onset (ms) P-T Amp ( V) Norm P-T Amp Site1 Site2 Delta-0 (ms) Dist (cm) Melvin (m/s) Norm Melvin (m/s) Left Median Palmar Ortho Mixed (Wrist) Palm NR <1.81 >0.0 Palm Wrist 8.0 >43.9 Right Median Palmar Ortho Mixed (Wrist) Palm NR <1.81 >0.0 Palm Wrist 8.0 >43.9 EMG Side Muscle Nerve Root Ins Act Fib/ Pos Fasc Other Atrophy Amp Dur Poly Recr Pat Int Pat Comment Right Abd Poll Brev Median C8-T1 0 0 0 0 1+ N N Serr 2- N Right Pron Teres Median C6-7 0 0 0 0 0 N N 0 N N Right Interos Shaheen I Ulnar C8-T1 0 0 0 0 0 N N 0 1- N Right Flex Carpi Uln Ulnar C8,T1 0 0 0 0 0 N N 0 N N Right Triceps Brach Radial C6-7-8 0 0 0 0 0 N N 0 N N Right Biceps Brach Musculocut C5-6 0 0 0 0 0 N N 0 N N Right Deltoid Axillary C5-6 0 0 0 0 0 N N 0 N N Left Abd Poll Brev Median C8-T1 0 0 0 0 1+ N 1+ Serr 1- N Left Pron Teres Median C6-7 0 0 0 0 0 N N 0 N N Left Interos Shaheen I Ulnar C8-T1 0 0 0 0 0 N N 0 N N Left Flex Carpi Uln Ulnar C8,T1 0 0 0 0 0 N N 0 N N Left Triceps Brach Radial C6-7-8 0 0 0 0 0 N N 0 N N Left Biceps Brach Musculocut C5-6 0 0 0 0 0 N N 0 N N Left Deltoid Axillary C5-6 0 0 0 0 0 N N 0 N N Abbreviations: Atrop=atrophy; CRD=complex repetitive discharge; Discr=discrete; Doub=doublet; Fasc=fasciculation; FFE=full for effort; Fib=fibrillation; Myokym=myokymia; Arbon=myotonic potential; N,0=normal; NR=no response; Polyph=polyphasia; Pos=positive [sharp] wave; RFU=rapidly firing units; Serr=serrated potential (2<phases<5); W&W=waxing and waning pattern INTERPRETATION: This study reveals [facility] evidence of chronic, neuropathic, axonal, sensorimotor processes affecting the median nerves at the wrists bilaterally, consistent with the clinical diagnosis of carpal tunnel syndrome. These are of moderate degree on the R and mild degree on the L by electrical criteria. Similar processes affect the ulnar nerves at the elbows (ulnar grooves/cubital tunnels),, of mild degree, and at the wrists (Guyon's canals), of very mild degree. Nightly splint use was reinforced to the patient for prophylaxis. Should surgery be contemplated, a follow-up study 6 months afterward, limited to the median nerves, would be beneficial in establishing a new baseline. In comparison with previous studies, there is modest worsening of both the median nerves and ulnar nerves, the latter worsening both at the wrists and at the elbows. There is no suggestion by this study of more proximal lesions e.g. radiculopathy, nor of more widespread processes e.g. peripheral neuropathy or mononeuritis multiplex. The paraspinal muscles were not studied due to the patient's Factor Xa inhibitor anticoagulation, resulting in somewhat lower sensitivity of this study to the presence of any radiculopathy. MEDIANS R DML L R Motor ampl L R Sens CV L Palmar latency This study 5.3 4.7 5.5 5.6 NR 43 NR NR 2023Dec 12 5.2 5.0 6.7 6.9 NR 40 NR 1.9 2017Feb 04 (medians) 4.5 5.3 8.5 6.0 49 49 1.7 2.2 2016Apr 05 & 4.8 5.5 7.1 7.2 47 46 1.9 2.1 ULNARS R CV elbow L This study 3.9 3.6 2.7 1.6 45 55 3.0 NR 40 42 2023Dec 12 3.9 3.3 3.0 2.1 29 47 1.8 1.5 53 57 2016Apr 05 3.4 3.0 7.7 6.6 50 48 --` -- 36 40 Oz Kincaid M.D. Diplomate, [place] [employer] and Neu[employer] (neurology, epilepsy, sleep medicine) Diplomate, [place] [employer] of Clinical Neurophysiology Diplomate, [place] [employer] of Preventive Medicine (clinical informatics) . documented in this encounter [facility] 11-23-2024 History of Presen t illness Narrative [...] she does decline. documented in this encounter [facility] 11-16-2024 History of Presen t illness Narrative [...] their surgery date. documented in this encounter [facility] 10-21-2024 Telephone encount er Note Patient canceled 10/23/24 EMG on 10/20/24 due to an appointment conflict. [facility] 10-21-2024 Miscellaneous Notes Formattin g of this note might be different from the original. Patient canceled 10/23/24 EMG on 10/20/24 due to an appointment conflict. documented in this encounter [facility] 10-20-2024 History of Presen t illness Narrative [...] ulceration and/or pain. documented in this encounter [facility] 10-07-2024 Telephone encount er Note Received call from Raine with [facility] they are happy to take her as a client. [facility] 10-07-2024 Miscellaneous Notes Formattin g of this note might be different from the original. Received call from Raine with [facility] they are happy to take her as a client. documented in this encounter [facility] 10-06-2024 History of Presen t illness Narrative [...] 6 weeks (around 11/17/2024), or 6-8 w [employer]; after ENMGs. History of Present Illness, Associated [...] restlessness; gait ataxia. Imaging MR L-s (11/2023, [facility]) - HNP T12-L1 mild ... canal sten L2-3 mod ... errol sten L2-3 modB L4-5-S1 modB US LE (12/2016, [facility]) - atherosclerosis, nl PVR. Testing [facility] (11/2023) - acute L S1 (nEMG) + PN pattern signif worse . . . . (03/2017, [facility]) - PN pattern Labs - Z05=250/15/116/>22.3, was 359/16.7H/328/>22.3 ... A1c=8.4, was 10.4(!) ,,, BEATRICE=1:320, was 1:80 but subtests nl. . . . . M&S Neurop Panel ([facility]) - _ Surgery Dr. Eden (nsurg) consult (12/2023) -,surgery felt not to be needed as yet. Failed ?GBP (ineff), dulox ?dose (?why). Dx COGNITION . WMD . ?TIA Tx donepezil 10 bid + memantine 10 bid ASA 81 (+ apixaban) AEs Hx Cogn - relatively stable. ?TIA - end of Mar pt adm to [facility] for gen weakness & slurred speech, resolved [...] brain (03/2024) - never done during adm [facility] due to metal . . . . (10/2023, [facility]) - atrophy age-appropriate & ^T2/FLAIR CTA head (03/2024, [facility]) - no stenoses CTA neck(03/2024, [facility]) - < 20% B Testing (q.v.) ... [...] ___, unchanged: ___, orig: ___ Motor - Coremaker Floor 4-R 4L ... APB 4B ... LEs - 4+ throughout (worse), somewhat antalgic, unchanged: ___, orig: Coremaker Floor 4B ... APB 4R 4+L Sens - [...] COLPOSCOPY 09/2021 ESOPHAGEAL DILATION HYSTERECTOMY PARTIAL HYSTERECTOMY IN VULVECTOMY SIMPLE PARTIAL 12/2018 TONSILLECTOMY VULVECTOMY 12/2017 [...] Gluc Sensor (FreeStyle Brent 14 Day Sensor) [facility] apply 1 SENSOR as directed every 14 days use with DEVICE to MONIT... (REFER TO PRESCRIPTION NOTES). cyanocobalamin (Vitamin B-12) 2500 MCG tablet Docusate Sodium (DSS) 100 MG capsule Take 100 mg by mouth in the morning and 100 mg in the evening. donepezil (Aricept) 10 MG tablet 2 tabs QAM 60 tablet 5 Droplet Pen Maiden 32G X 4 MM [facility] use 1 PEN NEEDLE to inject MEDICATION [...] file as of 10/06/2024. Oz Kincaid M.D. [facility] Neurology ? [address] ? [place], [place] [address] ? ? fax Neurology ? Clinical Neurophysiology ? Epilepsy ? Sleep Disorders ? Clinical Informatics documented in this encounter [facility] 10-01-2024 Evaluation note Diagnosis Onset Date Resolution Atrial fibrillation acute October 01, 2024 2:34pm [...] 2024 2:34pm Secondary polycythemia acute 2024 2:34pm Allergy to honey bee venom acute December 15 1:46pm Depression acute December 15 1:46pm [facility] Work Phone: 1(235) 225-470005-15-2025 [place] [address] EGD Procedure Note Signed Patient: Taye Gay MR#: [id number] : 1955 Acct:[id number] Age/Sex: 68 / F Adm Date: Loc: Room: Type: [facility] Attending Dr: Manjit Gleason MD Copies to: DO Manjit Daniels MD~ Esophagogastroduodenoscopy Date/Provider Date: 09/10/2024 Manjit Gleason MD Procedure Findings: Procedure: EGD with biopsy with dilation Indication: 68-year-old female here for EGD for evaluation of dysphagia Pre-operative diagnosis: Dysphagia Post-operative diagnosis: Gastritis, esophageal stricture. Sedation: propofol per anesthesia dept O2 oximetry, hemodynamic monitoring was performed pre, during, and post procedure. Patient was identified, H&P completed, patient was given full explanation of the procedure as well as associatedrisks and written consent wasobtained prior to procedure. Patient expressed complete understanding of the procedure as well as alternatives to the procedure and to anesthesia and agreed to proceed with the procedure as indicated. Patient was immediately reassessed prior to IV sedation. Following IV sedation, patient was placed in the left lateral decubitus position. Bite block was inserted. Endoscope was passed through the mouth, into the esophagus. Endoscope was advanced into the stomach through the pyloricchannel and into the 2nd portion of duodenum by direct visualization. Endoscopewas withdrawn into the stomach and retroflexion was performed. The endoscope was straightened,the stomach was decompressed. Endoscope was withdrawn into the esophagus then completely removed with the findings as below. Findings: DUODENUM: bulb and descending portion appeared normal. STOMACH: Erythematous mucosa noted in the antrum otherwise fundus and cardia, including retroflexedviews appear normal. Gastric biopsies were done using biopsy forceps to assess for H. pylori. ESOPHAGUS: Esophageal stricture noted at 39 cm from the incisors. A CRE balloonwas passed into scope and stricture dilated using 21 mm. No tear or perforation noted. Diaphragmatic hiatus was 41 cm from incisors and GE junction (upper margin of gastric folds) was at41 cm from incisors. Squamocolumnar junction was at 41 cmfrom incisors. Biopsy taken: Yes Complications: None EBL: Minimal Recommendations: -Increase omeprazole to 40 mg daily -Follow up pathology Following a period of recovery, patient was seen and given full explanation of the procedure. Patient tolerated the procedure well and will be discharged in satisfactory, stable condition. Manjit Gleason M.D. Documented By: Manjit Gleason MD 09/10/24 1241 Signed By: 09/10/24 1245 [facility]05-15-2025 [place] [address] Gastroenterology H&P Signed Patient: Taye Gay MR#: [id number] : 1955 Acct:[id number] Age/Sex: 68 / F Adm Date: 5 Loc: Room: Type: [facility] Attending Dr: Manjit Gleason MD Copies to: DO Manjit Daniels MD~ Date of Service: 09/10/2024 HISTORY & PHYSICAL: Patient's history with special attention to the cardiovascular, pulmonary systems and the current problem was reviewed with the patient immediately prior to the procedure. Present medications and doses reviewed in the EMR. Allergies and pertinent laboratory tests were also re viewedat this time in the EMR. The physical [...] Manjit Gleason MD 09/10/24 1233 Signed By: 09/10/24 1241 [facility]04-29-2025 Chief complaint+Reason for visit Narrative* Chief Complaint Admit Date Talk about sleep apnea, referral July 292024 1:31pm fu after PT September 07, 2024 11:01 am Dysphagia September 10, 2024 10:57 am Dysphagia September 10, 2024 12:33 pm G47.33 October 01, 2024 2:34p m L97.512 November 16, 2024 4:48 pm Reason for Visit Admit Date BMI 32.0-32.9,adult [...] Secondary polycythemia October 01, 2024 2: 34pm [facility] Work Phone: 1(447) 308-117704-24-2025 Evaluation note* Diagnosis Onset Date Resolution Status [...] 25, 2024 1:31pm Peripheral neuropathy acute Apr il 2024 1:31pm Lumbar spondylosis acute September 072024 [...] 2024 2:34pm Secondary polycythemia acute 2024 2:34pm [facility] Work Phone: 1(857) 585-662603-26-2025 Evaluation note* Diagnosis Onset Date Resolution Status [...] 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 A pril 2024 9:57am [facility] Work Phone: 1(484) 890-954803-26-2025 Evaluation note* Diagnosis Onset Date Resolution Status [...] 1:31pm Peripheral neuropathy acute Apr 2024 1:31pm [facility] Work Phone: 1(659) 776-417103-26-2025 Evaluation note* Diagnosis Onset Date Resolution Status [...] 1:31pm Lumbar spondylosis acute September 072024 11:01am [facility] Work Phone: 1(656) 532-330803-26-2025 Evaluation note* Diagnosis Onset Date Resolution Status [...] 2024 2:34pm Secondary polycythemia acute 2024 2:34pm [facility] Work Phone: 1(838) 685-665003-25-2025 History of Present illness Narrative* Oz Kincaid MD - 07/21/2024 2:45 PM EDTAssociated Problem(s): Cognitive decline (Continue current regimen.) [facility] records - neuro consults, EEG, [...] Gay Dept: Neurology : 1955 Appt Date: 07/21/2024 Prev Appt: 04/07/2024 Chief Complaint Patient presents with cognitive decline Appointment Note -- Hosp Follow Up Assessment and Plan - Assessment & Plan Cognitive decline (Continue current regimen.) [facility] records - neuro consults, EEG, [...] restlessness; gait ataxia. Imaging MR L-s (11/2023, [facility]) - HNP T12-L1 mild; canal sten L2-3 mod; errol sten L2-3 modB L4-5-S1 modB US LE (12/2016, [place]) - atherosclerosis, nl PVR. Testing [facility] (11/2023) - acute L S1 (nEMG) + PN pattern signif worse . . . . (03/2017, [facility] ) - PN pattern Labs - C92=382/15/116/>22.3, was 359/16.7H/328/>22.3 ... A1c=8.4, was 10.4(!) ,,, [...] now that pt is off nortrip. Adm [facility] ~XAVIER for possible TIA. Walking drunk , Tim. 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 Imaging MR brain (10/2023, [facility]) - not available via [facility] - atrophy age- appropriate & ^T2/FLAIR [...] ___, orig: ___ Motor - ___, unchanged: Coremaker Floor 4B ... APB 4R 4+L, orig: ___ [...] positive COVID-19 Diabetes (CMS/HCC) Fibromyalgia High cholesterol ([facility]/HCC) History of medical problems ulcer HTN (hypertension) (CMS/HCC) Neuropathy Rheumatoid arthritis ([facility]/HCC) Scarlet fever Stomach ulcer Tonsillitis Past Surgical History: Procedure Laterality Date BIOPSY 04/2020 vulvar CARPAL TUNNEL RELEASE Right 2018 COLPOSCOPY 01/21/2017 COLPOSCOPY 09/2018 COLPOSCOPY 10/2019 COLPOSCOPY 09/2021 ESOPHAGEAL DILATION HYSTERECTOMY PARTIAL HYSTERECTOMY IN VULVECTOMY SIMPLE PARTIAL 12/2018 TONSILLECTOMY VULVECTOMY 12/2017 [...] Gluc Sensor (FreeStyle Brent 14 Day Sensor) [facility] apply 1 SENSOR as directed every 14 days use with DEVICE to MONIT... (REFER TO PRESCRIPTION NOTES). cyanocobalamin (Vitamin B-12) 2500 MCG tablet Docusate Sodium (DSS) 100 MG capsule Take 100 mg by mouth in the morning and 100 mg in the evening. donepezil (Aricept) 10 MG tablet Up to 2 QAM if tolerated 60 tablet 3 Droplet Pen Maiden 32G X 4 MM [facility] use 1 PEN NEEDLE to inject MEDICATION [...] 40 mg by mouth at bedtime Ashley Merida 300 UNIT/ML injection inject 20 units subcutaneously [...] ? [address] ? [place], [place] [address] ? ? fax Neurology ? Clinical Neurophysiology ? Epilepsy ? Sleep Disorders ? Clinical Informatics documented in [facility] encounter[facility] [id number] History of Present illness Narrative* Thuan Wise [...] Scribe Attestation By signing my name below, Melina Bardales LPN , Ernesto attest that this documentation has been prepared [...] exam, discussion and plan. [facility] Work Phone: 1(114) 998-500702-28-2025 Instructions* Patient Instructions* Melina Lee LPN - [...] 6 months with ekg [facility] Work Phone: 1(406) 368-639801-21-2025 Telephone encounter Note* Telephone Encounter - Cali Duque - 05/19/2024 11:20 AM EST Daughter same day canceled same day canceled today's appointment due to overslept. RS for 06/02/24 NOMS [id number] Miscellaneous Notes* Telephone Encounter - Cali Duque - 05/19/2024 11:20 AM EST Daughter same day canceled same day canceled today's appointment due to overslept. RS for 06/02/24 documented in this encounterHedrick [facility] [id number] [place] [id number] Neurology Progress Note Signed with Addenda Patient: Taye Gay MR#: [id number] : 1955 Acct:[id number] Age/Sex: 68 / F Adm Date: 4 Loc: 3T Room: [address] [place] [address] Type: ADM IN Attending Dr: Priscilla Lang MD Copies to: ~ ADDENDUM1 Patient has refused to remove her nail tongan for MRI. Unable to confirm whether or [...] may be metabolic in nature and not lead customer service representative necessarily of transient ischemia or of [...] DO 5 0608 Signed By: 04/30/24 0708 [facility]01-02-2025 Discharge summary Author Priscilla Lang [facility] Note Date/Time April 30, 2024 10 :28am [facility] [address] [place] [address] Discharge Summary Signed Patient: Taye Gay MR#: [id number] : 1955 Acct:[id number] Age/Sex: 68 / F Adm Date: 4 Loc: 3T Room: [address] [place] [address]: Priscilla Lang MD Copies to: [...] taking multiple medications that could potentially cause RESEARCH DIETITIAN side effect and toxic encephalopathy. Diagnosis is [...] polypharmacy regimen to reduce her risk of RESEARCH DIETITIAN side effects or drug?drug interaction. At this [...] ask her primary care doctor to obtain [facility] record entirely to address abnormalities seen on [...] ask your primary care provider to obtain [facility] records entirely to follow up on all [...] or having drug?drug interaction. Discharging you from [facility] does not mean that your medical care [...] constipation) (DME) pen needle, diabetic [Sure-Fine Pen Maiden] .Route lidocaine 5 % ointment 1 applic [...] % (Auto) 63.5, Lymph % (Auto) 24.9, [place] % (Auto) 8.3, Eos % (Auto) 2.9, Baso % (Auto) 0.4, Nucleat RBC Rel Count 0.0, Neut # (Auto) 4.6, Lymph # (Auto) 1.8, [place] # (Auto) 0.6, Eos # (Auto) 0.2, [...] signed by Priscilla Lang MD> 04/30/24 1028 [facility] Work Phone: 1(341) 892-383301-02-[address] [address] Discharge Summary Signed Patient: Taye Gay MR#: [id number] : 1955 Acct:[id number] Age/Sex: 68 / F Adm Date: 4 Loc: 3T Room: [address] [place] [address]: Priscilla Lang MD Copies to: [...] taking multiple medications that could potentially cause RESEARCH DIETITIAN side effect and toxic encephalopathy. Diagnosis is [...] polypharmacy regimen to reduce her risk of RESEARCH DIETITIAN side effects or drug?drug interaction.At this time, [...] ask her primary care doctor to obtain [facility] record entirely to address abnormalities seen on [...] ask your primary care provider to obtain [facility] records entirely to follow up on all [...] or having drug?drug interaction. Discharging you from [facility] does not mean that your medical care [...] constipation) (DME) pen needle, diabetic [Sure-Fine Pen Maiden] .Route lidocaine 5 % ointment 1 applic [...] % (Auto) 63.5, Lymph % (Auto) 24.9, [place] % (Auto) 8.3, Eos % (Auto) 2.9, Baso % (Auto) 0.4, Nucleat RBC Rel Count 0.0, Neut # (Auto) 4.6, Lymph # (Auto) 1.8, [place] # (Auto) 0.6, Eos # (Auto) 0.2, [...] Lang MD 04/30/24 1016 Signed By: 04/30/[address] [place], [place] 7865201-01-2025 Consult note Author Lit Clark [facility] Note Date/Time April 29, 2024 11 :07am [facility] [address] [place] [address] Neurology Consult Note Signed Patient: Taye Gay MR#: [id number] : 1955 Acct:[id number] Age/Sex: 68 / F Adm Date: 4 Loc: Room: [address] [place] [address] Type: ADM IN Attending Dr: Priscilla Lang MD Copies to: DO Sandra Garrido DO Rafik Massouh, MD~ HPI Consult Date: 04/29/24 Svp: Lit Clark DO Reason for consult: Slurred [...] negative unless noted below or in HPI [facility] Medical History BMI 32.0-32.9,adult Abnormal thyroid blood [...] Father Heart disease History of stroke [facility] Problem: Diagnosed with Stroke Cancer throat heart [...] (Stool Softener) 100 mg PO DAILY PRN lolulojmgpax68/14/24 [History Confirmed 04/28/24] multivitamin 1 tab PO DAILY 06/12/23 [History Confirmed 04/28/24] pen needle, diabetic [Sure-Fine Pen Maiden] 06/12/23 [History Confirmed 04/28/24] metformin 500 mg [...] Oz Bowling M.D.04/28/2024 9:46 PM Dictation Location: [facility]--[address] 04/28/24 19:44 IMPRESSION: No acute intracranial pathology. No evidence of focal stenosis, aneurysmal dilatation, dissection or occlusion. Impression dictated by: Oz Bowling M.D.04/28/2024 9:44 PM Dictation Location: [facility]--17 Assessment/Plan (1) Atrial fibrillation: Qualifiers: Atrial fibrillation [...] may be metabolic in nature and not lead customer service representative necessarily of transient ischemia or of [...] <Electronically signed by Lit Clark DO> 04/29/24 1106 [facility] Work Phone: 1(973) 867-598401-01-2025 Progress note Author Priscilla Lang [facility] Note Date/Time April 29, 2024 11 :02am [facility] [address] [place] [address] Hospitalist Progress Note Signed Patient: Taye Gay MR#: [id number] : 1955 Acct:[id number] Age/Sex: 68 / F Adm Date: 4 Loc: Room: [address] [place] [address] Type: ADM IN Attending Dr: Priscilla Lang [...] of dementia, possible Alzheimer's dementia -continue home blavvhoxy70 mg twice daily and donepezil 20 mg [...] providers. Documented By: Priscilla Lang MD 04/29/24 1052 Signed By: <Electronically signed by Priscilla Lang MD> 04/29/24 1109 [facility] Work Phone: 1(433) 157-871501-01-2025 [place] [address] Neurology Consult Note Signed Patient: Taye Gay MR#: [id number] : 1955 Acct:[id number] Age/Sex: 68 / F Adm Date: 4 Loc: Room: [address] [place] [address] Type: ADM IN Attending Dr: Priscilla Lang MD Copies to: DO Sandra Garrido DO Rafik Massouh, MD~ HPI Consult Date: 04/29/24 Svp: Lit Clark DO Reason for consult: Slurred [...] negative unless noted below or in HPI [facility] Medical History BMI 32.0-32.9,adult Abnormal thyroid blood [...] Father Heart disease [facility]: Diagnosed with Stroke Cancer [...] (Stool Softener) 100 mg PO DAILY PRN xnuohsayouof94/14/24 [History Confirmed 04/28/24] multivitamin 1 tab PO DAILY 06/12/23 [History Confirmed 04/28/24] pen needle, diabetic [Sure-Fine Pen Maiden] 06/12/23 [History Confirmed 04/28/24] metformin 500 mg tablet See Rx Instructions .Route .COMPLEX #180 tabs 04/29/24 [Rx Confirmed 04/28/24] folic acid 1 mg [...] Oz Bowling M.D.04/28/2024 9:46 PM Dictation Location: [place] [address] 04/28/24 19:44 IMPRESSION: No acute intracranial pathology. No evidence of focal stenosis, aneurysmal dilatation, dissection or occlusion. Impression dictated by: Oz Bowling M.D.04/28/2024 9:44 PM Dictation Location: [place] [address] Assessment/Plan (1) Atrial fibrillation: Qualifiers: Atrial fibrillation [...] may be metabolic in nature and not lead customer service representative necessarily of transient ischemia or of [...] DO 5 0858 Signed By: 04/29/24 1107 [facility]01-01-2025 [place] [id number] Hospitalist Progress Note Signed Patient: Taye Gay MR#: [id number] : 1955 Acct:[id number] Age/Sex: 68 / F Adm Date: 4 Loc: 3T Room: [address] [place] [address] Type: ADM IN Attending Dr: Priscilla Lang [...] of dementia, possible Alzheimer's dementia -continue home uijcrwghx14 mg twice daily and donepezil 20 mg [...] MD 04/29/24 1059 Signed By: 04/29/24 1102 [facility]01-01-2025 History and physical note Author Jori Hearn [facility] Note Date/Time April 29, 2024 6: 39am [facility] [address] [place], [place] [address] Hospitalist H&P Signed Patient: Taye Gay MR#: [id number] : 1955 Acct:[id number] Age/Sex: 68 / F Adm Date: 4 Loc: 3T Room: [address] [place] [address] Type: ADM IN Attending Dr: Jori Hearn DO Copies to: Sandra Rebecca Keita, DO Jori Hearn, ~ HPI DATE OF EXAMINATION: 04/29/24 CHIEF [...] of dementia, possible Alzheimer's dementia -continue home axwtavbbl60 mg twice daily and donepezil 20 mg daily 12. Atrial fibrillation - continue Eliquis 5 mg twice daily for anticoagulationand carvedilol 12.5 mg twice daily. EKG in ER shows NSR 13. Hypoxia - no respiratory distress or cardiopulmonary complaints to accompany this. Will monitor telemetry and address as needed [facility] Medical History BMI 32.0-32.9,adult Abnormal thyroid blood [...] disease History of stroke [facility] Problem: Diagnosed with Stroke Cancer throat [...] (Stool Softener) 100 mg PO DAILY PRN yzhunojyappk25/14/24 [History Confirmed 04/28/24] multivitamin 1 tab PO DAILY 06/12/23 [History Confirmed 04/28/24] pen needle, diabetic [Sure-Fine Pen Maiden] 06/12/23 [History Confirmed 04/28/24] metformin 500 mg [...] % (Auto) 24.6 % (.) 04/28/24 19:54 [place] % (Auto) 7.6 % (.) 04/28/24 19:54 Eos % (Auto) 2.7 % (.) 04/28/24 19:54 Baso % (Auto) 1.1 % (.) 04/28/24 19:54 Nucleat RBC Rel Count 0.2 /100 WBC (0-0.5) 04/28/24 19:54 Neut # (Auto) 6.5 x10E3/uL (1.8-7.7) 04/28/24 19:54 Lymph # (Auto) 2.5 x10E3/uL (1.00-4.8) 04/28/24 19:54 [place] # (Auto) 0.8 x10E3/uL (0.0-0.8) 04/28/24 19:54 [...] pH 5.5 (5.0-9.0) 04/28/24 22:02 Ur Specific [place] 1.038 (1.001-1.030) H 04/28/24 22:02 Urine Protein [...] 3 Documented By: Jori Hearn DO 04/28/24 57 Signed By: <Electronically signed by Jori Hearn DO> 04/29/24 0639 [facility] Work Phone: 1(188) 889-231501-01-2025 [place] [address] Hospitalist H&P Signed Patient: Taye Gay MR#: [id number] : 1955 Acct:[id number] Age/Sex: 68 / F Adm Date: 4 Loc: 3T Room: [address] [place] [address] Type: ADM IN Attending Dr: Jori Hearn DO Copies to: DO Jori Daniels DO~ HPI DATE OF EXAMINATION: 01/01/25 CHIEF COMPLAINT: dyphasia HISTORY OF PRESENT ILLNESS: [...] of dementia, possible Alzheimer's dementia -continue home yfzgbqnmu61 mg twice daily and donepezil 20 mg daily 12. Atrial fibrillation - continue Eliquis 5 mg twice daily for anticoagulationand carvedilol 12.5 mg twice daily. EKG in ER shows NSR 13. Hypoxia - no respiratory distress or cardiopulmonary complaints to accompany this. Will monitortelemetry and address as needed [facility] Medical History BMI 32.0-32.9,adult Abnormal thyroid blood [...] Father Heart disease History of stroke [facility] Problem: Diagnosed with Stroke Cancer throat heart [...] (Stool Softener) 100 mg PO DAILY PRN qdvpvtokxvea27/14/24 [History Confirmed 04/28/24] multivitamin 1 tab PO DAILY 06/12/23 [History Confirmed 04/28/24] pen needle, diabetic [Sure-Fine Pen Maiden] 06/12/23 [History Confirmed 04/28/24] metformin 500 mg [...] % (Auto) 24.6 % (.) 04/28/24 19:54 [place] % (Auto) 7.6 % (.) 04/28/24 19:54 Eos % (Auto) 2.7 % (.) 04/28/24 19:54 Baso % (Auto) 1.1 % (.) 04/28/24 19:54 Nucleat RBC Rel Count 0.2 /100 WBC (0-0.5) 04/28/24 19:54 Neut # (Auto) 6.5 x10E3/uL (1.8-7.7) 04/28/24 19:54 Lymph # (Auto) 2.5 x10E3/uL (1.00-4.8) 04/28/24 19:54 [place] # (Auto) 0.8 x10E3/uL (0.0-0.8) 04/28/24 19:54 [...] pH 5.5 (5.0-9.0) 04/28/24 22:02 Ur Specific [place] 1.038 (1.001-1.030) H 04/28/24 22:02 Urine Protein [...] 3 Documented By: Jori Hearn DO 04/28/24 57 Signed By: 04/29/24 0639 [facility]12-31-2024 Radiology Diagnostic study note [facility] Main [place] [address] [place] [address] CT Scan Report Signed Patient: Taye Gay MR#: [id number] : 1955 Acct:[id number] Age/Sex: 68 / F ADM Date: 4 Loc: ER Room: Type: [facility] ER Attending Dr: Copies to: Wesley Villafuerte PA-C~ Ordering Provider: Wesley Villafuerte PA-C Date of Service: 04/28/24 CT/CT angio head: weakness ([id number]) CT/CT angio neck: weakness ([id number]) CT/CT head/brain wo con: weakness CT head/brain [...] Oz Bowling M.D.04/28/2024 9:44 PM Dictation Location: [place] [address] Transcribed By: AMY 04/28/242143 Dictated By: Oz Bowling II, MD 04/28/242129 Signed By: 04/28/242143 [facility] Work Phone: 1(664) 344-773512-31-2024 Evaluation note* Diagnosis Onset Date Resolution Status Admit Date High granulocyte count acute De 2023 9:53am [...] attack) acut e May 07, 2024 1:02pm [facility] Work Phone: 1(576) 610-416612-31-2024 Evaluation note* Diagnosis Onset Date Resolution Status Admit Date High granulocyte count acute 2023 9:53am Secondary polycythemia acute De 2023 [...] disease) acut e July 22, 2024 10:54am [facility] Work Phone: 1([phone]) 158-622612-17-2024 Evaluation note* Diagnosis Onset Date Resolution Status [...] attack) acut e April 28, 2024 10:38pm [facility] Work Phone: 1([phone]) 339-398212-17-2024 Evaluation note* Diagnosis Onset Date Resolution Status [...] acute March 11:14am Peripheral neuropathy acute Dec 2023 11:14am Type 2 diabetes mellitus acute April 28, 2024 11:14am Vitamin B 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 D ecember 2023 11:14am Atrial fibrillation acute Decem 2023 10:38pm Generalized weakness acute Dece mb2023 10:38pm Insulin dependent diabetes mellitus acute April 28 10:38pm TIA (transient ischemic attack) acut e April 28, 2024 10:38pm [facility] Work Phone: 1([phone]) 526-680412-17-2024 Evaluation note* Diagnosis Onset Date Resolution Status [...] acute March 11:14am Peripheral neuropathy acute Dec 2023 11:14am Type 2 diabetes mellitus acute April 28, 2024 11:14am Vitamin B 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 D ecember 2023 11:14am Atrial fibrillation acute Decem 2023 10:38pm Generalized weakness acute Dece mb2023 10:38pm Insulin dependent diabetes mellitus acute April 28 10:38pm TIA (transient ischemic attack) acut e April 28, 2024 10:38pm Cigarette nicotine dependence acute May 07, 2024 1:02pm [facility] Work Phone: 1(167) 601-965012-17-2024 Evaluation note* Diagnosis Onset Date Resolution Status Admit Date High granulocyte count acute De 2023 9:30am Secondary polycythemia acute De 2023 9:30am High granulocyte count acute 2023 9:53am Secondary [...] e May 07, 2024 1:02pm [facility] Work Phone: 1([phone]) 454-334612-11-2024 History of Present illness Narrative* Karl Fritz DPM - 04/08/2024 4:00 PM EST Images from the original note were not included. HPI: Patient presents today complaining of an ulcer on the lateral 5th right foot. Patient has pain withwalking and standing due to this lesion. Patient has tried [facility] for treatment, x-ray, antibiotic, (not taking d/t [...] 7. RTC: 2 weeks. 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 History of Present Illness, Associated Treatments and [...] Restlessness well controlled. Imaging MR L-s (11/2023, [facility]) - HNP T12-L1 mild; canal sten L2-3 mod; errol sten L2-3 modB L4-5-S1 modB US LE (12/2016, [facility]) - atherosclerosis, nl PVR. Testing [facility] (11/2023) - acute L S1 (nEMG) + PN pattern signif worse . . . . (03/2017, [facility]) - PN pattern Labs - C37=230/15/116/>22.3, was 359/16.7H/328/>22.3 ... A1c=8.4, was 10.4(!) ,,, [...] nortrip. Onset Semeiology Imaging MR brain (10/2023, [facility]) - not available via [facility] - atrophy age- appropriate & ^T2/FLAIR [...] ___, orig: ___ Motor - ___, unchanged: Coremaker Floor 4B ... APB 4R 4+L, orig: ___ [...] COLPOSCOPY 09/2021 ESOPHAGEAL DILATION HYSTERECTOMY PARTIAL HYSTERECTOMY IN VULVECTOMY SIMPLE PARTIAL 12/2018 TONSILLECTOMY VULVECTOMY 12/2017 [...] in the morning. Continuous Blood Gluc Sensor (VOSSyle Brent 14 Day Sensor) [facility] apply 1 SENSOR as [...] if tolerated 60 tablet 3 Droplet Pen Maiden 32G X 4 MM [facility] use 1 PEN NEEDLE to inject MEDICATION [...] capsule by mouth at bedtime if needed Toujemaya SoloStar 300 UNIT/ML injection inject 20 units subcutaneously as directed [DISCONTINUED] metoprolol succinate XL (Toprol-XL) 50 MG 24 hr tablet Take 50 mg by mouth in the morning and 50 mg in the evening. No facility-administered encounter medications on file as of 04/07/2024. Oz Kincaid M.D. [facility] ? [address] ? [place] [address] ? ? fax Neurology ? Clinical Neurophysiology ? Epilepsy ? Sleep Disorders ? Clinical Informatics documented in this encounterHedrick Medical CenterVpqtgsmnue05-72-9157 History of Present illness Narrative* Thuan Wise [...] exam, discussion and plan. [facility] Work Phone: 1([phone]) 931-928411-27-2024 Instructions* Patient Instructions* Dave Meneses MA - [...] time of your visit. documented in this encounterK[facility] Work Phone: [phone]) 547-254610-29-2024 History of Present illness Narrative* Oz Kincaid MD - 02/25/2024 2:43 PM EDTAssociated Problem(s): BEATRICE positive Get Dr. Gonzalez's note (2nd request). * Oz Kincaid MD - 02/25/2024 2:15 PM EDTAssociated Problem(s): Cognitive decline Add memantine 10 -> bid. Then add donepezil 10, titrate. Handout. Get MR images transferred to [facility] P[facility] for my review. * Oz [...] titrate. Handout. Get MR images transferred to [facility] for my review. Neurogenic pain (Continue [...] Restlessness well controlled. Imaging MR L-s (11/2023, [facility]) - HNP T12-L1 mild; canal sten L2-3 mod; errol sten L2-3 modB L4-5-S1 modB US LE (12/2016, [facility]) - atherosclerosis, nl PVR. Testing [facility] (11/2023) - acute L S1 (nEMG) + PN pattern signif worse . . . . (03/2017, [facility]) - PN pattern Labs - I83=522/15/116/>22.3, was 359/16.7H/328/>22.3 ... A1c=8.4, was 10.4(!) ,,, [...] nortrip. Onset Semeiology Imaging MR brain (10/2023, [facility]) - not available via [facility] - atrophy [...] ___, orig: ___ Motor - ___, unchanged: Coremaker Floor 4B ... APB 4R 4+L, orig: ___ [...] COLPOSCOPY 09/2021 ESOPHAGEAL DILATION HYSTERECTOMY PARTIAL HYSTERECTOMY IN VULVECTOMY SIMPLE PARTIAL 12/2018 TONSILLECTOMY VULVECTOMY 12/2017 [...] in the morning. Continuous Blood Gluc Sensor (Engage Brent 14 Day Sensor) [facility] apply 1 SENSOR as directed every 14 days use with DEVICE to MONIT... (REFER TO PRESCRIPTION NOTES). cyanocobalamin (Vitamin B-12) 2500 MCG tablet cyclobenzaprine (Flexeril) 10 MG tablet 1-2 tabs QHS 60 tablet 3 Docusate Sodium (DSS) 100 MG capsule Take 100 mg by mouth in the morning and 100 mg in the evening. Droplet Pen Maiden 32G X 4 MM [facility] use 1 PEN NEEDLE to inject MEDICATION [...] ? [address] ? [place], [place] [address] ? ? fax Neurology ? Clinical Neurophysiology ? Epilepsy ? Sleep Disorders ? Clinical Informatics documented in this encounterHedrick Medical CenterXaurnafxyy40-73-8623 History of Present illness Narrative* Karl Fritz, BARRIE - 02/10/2024 2:00 PM EDT Images from the original note were not included. HPI: Patient presents today complaining of an ulcer on the plantar 1st met right foot. They have noticedthis for the past month (10/2023). Patient has pain with walking and standing due to this lesion. Patient has tried [facility] for treatment, x-ray, antibiotic, (not taking d/t [...] 7. RTC: 2 weeks. documented in this encounterHedrick Medical CenterIpinadgqjr39-09-2317 History of Present illness Narrative* Karl Fritz DPM - 01/27/2024 10:30 AM EDT Images from the original note were not included. HPI: Patient presents today complaining of an ulcer on the plantar 1st met right foot. They have noticedthis for the past month (10/2023). Patient has pain with walking and standing due to this lesion. Patient has tried [facility] for treatment, x-ray, antibiotic, (not taking d/t [...] 1 week for recheck. documented in this encounterHedrick Medical CenterMabcthrvai18-10-5662 History of Present illness Narrative* Karl Fritz [...] 1 week for recheck. documented in this encounterHedrick Medical CenterJsuvetbrdq35-65-8086 Telephone encounter Note* Telephone Encounter - Cali Duque - 01/10/2024 2:34 PM EDT Called and spoke with Corinna twice both times got disconnected. On purpose or by accident not sure, second time Corinna was given Dr Kincaid's answer. Not sure if she got full and complete answer, but she got enough of it. Hedrick Medical CenterKbcfzoonsj01-91-1201 Miscellaneous Notes* Telephone Encounter - Cali Duque [...] x several days, then 300 bid Corinna [phone] documented in this encounterHedrick Medical CenterYlgocylzbc49-25-1125 Telephone encounter Note* Telephone Encounter - Cali Duque - 01/08/2024 12:37 PM EDT Daughter (Corinna Ayala) called, She was talking with Taye's Nurse, They would like to know if Gabapentin would be a better option for Taye than the PGB? You just inc her PGB from 1 cap bid to 150/300 x several days, then 300 bid Corinna [phone] Hed[facility] Medical CenterUvvtnodsnr26-13-7485 History of Present illness Narrative* Oz Kincaid [...] fingertips 08/06. Restlessness well controlled. Imaging MR Arianna (11/2023, [facility]) - HNP T12-L1 mild; canal sten L2-3 mod; errol sten L2-3 modB L4-5-S1 modB US LE (12/2016, [place]) - atherosclerosis, nl PVR. Testing [facility] (11/2023) - acute L S1 (nEMG) + PN pattern signif worse . . . . (03/2017, [facility]) - PN pattern Labs - I59=151/15/116/>22.3, was 359/16.7H/328/>22.3 ... A1c=8.4, was 10.4(!) ,,, [...] ___, orig: ___ Motor - ___, unchanged: Coremaker Floor 4B ... APB 4R 4+L, orig: ___ [...] smear of cervix hpv positive COVID-19 Diabetes ([facility]/H[facility]) Fibromyalgia High cholesterol ([facility]) History of medical problems ulcer HTN (hypertension) ([facility]) Neuropathy Rheumatoid arthritis ([facility]) Scarlet fever Stomach ulcer Tonsillitis Past Surgical History: Procedure Laterality Date BIOPSY 04/2020 vulvar CARPAL TUNNEL RELEASE Right 2018 COLPOSCOPY 01/21/2017 COLPOSCOPY 09/2018 COLPOSCOPY 10/2019 COLPOSCOPY 09/2021 ESOPHAGEAL DILATION HYSTERECTOMY PARTIAL HYSTERECTOMY IN VULVECTOMY SIMPLE PARTIAL 12/2018 TONSILLECTOMY VULVECTOMY 12/2017 [...] Gluc Sensor (FreeStyle Brent 14 Day Sensor) [facility] 1 SENSOR as directed every 14 days use with DEVICE to MONIT... (REFER TO PRESCRIPTION NOTES). cyanocobalamin (Vitamin B-12) 2500 MCG tablet Docusate Sodium (DSS) 100 MG capsule Take 100 mg by mouth in the morning and 100 mg in the evening. Droplet Pen Maiden 32G X 4 MM [facility] use 1 PEN NEEDLE to inject MEDICATION [...] 01/07/2024. Oz Kincaid M.D. documented in this encounterHedrick Medical CenterJftrycyqin53-90-6920 History of Present illness Narrative* Karl Fritz [...] due to this lesion. Patient has tried [facility] for treatment, x-ray, antibiotic, (not taking [...] site with sean vega. She does have [facility] and updated orders will be sent. They [...] 7. RTC: 2 weeks. documented in this encounterHedrick Medical CenterIeycaacsfa14-93-5150 History of Present illness Narrative* Oz Kincaid [...] arranged Oz Kincaid M.D. documented in this [facility]08-19-2024 History of Present illness Narrative* Thuan Wise [...] Attestation By signing my name below, ISofie LPN, Scribe attest that this documentation has [...] exam, discussion and plan. documented in this [facility] Work Phone: 1([phone]) 387-163008-19-2024 Instructions* Patient Instructions* Sofie Dean LPN - [...] to Increase physical activity. documented in this [facility] Work Phone: 1(161) 106-590407-17-2024 History of Present illness Narrative* Jonas Ch [...] Cardiology 2. Nonischemic cardiomyopathy (Multi) Resolved with religion of sinus rhythm 3. Hypercholesteremia Review of [...] my direction and personally dictated by me. Rosy reviewed the chart and agree that the record accurately reflects my personal performance of the history, physical exam, discussion and plan. documented in this [facility] Work Phone: 1(562) 981-993607-17-2024 Instructions* Patient Instructions* Dakota Barraza RN - [...] to Increase physical activity documented in this [facility] Work Phone: 1(547) 961-700107-15-2024 Progress note Author Chaka Frye [facility] November 11, 2023 4:15pm Note Date/Time November 11, 2023 4:[address] [facility] [address] [place] [address] Hospitalist Progress Note Signed Patient: Taye Gay MR#: [id number] : 1955 Acct:[id number] Age/Sex: 67 / F Adm Date: 4 Loc: Room: [address] [place] [address] Type: ADM IN Attending Dr: Chaka Frye [...] <Electronically signed by Chaka Frye MD> 11/11/23 1614 [facility] Work Phone: 1([phone]) 252-216007-15-2024 Consult note Author Lit Clark [facility] November 11, 2023 3:11pm Note Date/Time November 11, 2023 10:[address] [facility] [address] [place] [address] Neurology Consult Note Signed Patient: Taye Gay MR#: [id number] : 1955 Acct:[id number] Age/Sex: 67 / F Adm Date: 4 Loc: 4N Room: [address] [place] [address] Type: ADM IN Attending Dr: Chaka Frye MD Copies to: DO Geraldo Garrido MD, RES MD Sandra Mar, ~ HPI Consult Date: 11/11/23 Svp: Geraldo Vo MD, RES Reason for consult: Progressive generalized weakness Consult Narrative HPI: Taye Gay is a 67 y.o. female with a PMH of esophageal stricture, cigarette smoker, GERD, HTN, type 2 diabetes mellitus, HLD, CKD stage G2/A2, peripheral neuropathy and vit B12 deficiency who presented to [facility] on 11/10/23 for concerns regarding generalized weakness. Neurology was consulted for evaluation of generalized weakness. Additional HPI is noted in Assessment and Plan. [facility] Medical History History of esophageal [...] History Father Heart disease [facility]: Diagnosed with Stroke Cancer throat heart [...] Confirmed 11/09/23] pen needle, diabetic [Sure-Fine Pen Maiden] 06/12/23 [History Confirmed 11/09/23] omeprazole 20 mg [...] Oz Bowling M.D.11/10/2023 1:15 PM Dictation Location: [facility]-13 Therapy Recommendations Therapy Recommendations: OT Recommendations OT Recommended Discharge [facility] Facility Location OT Recommended Services at Physical Therapy,Occupational Therapy Discharge PT Recommendations PT Recommended Discharge [facility] Facility Location PT Recommended Services at Physical Therapy,Occupational Therapy Discharge Assessment/Plan (1) Ambulatory dysfunction: (2) Weakness: (3) Hypothyroid: Qualifiers: Hypothyroidism type: unspecified Qualified Code(s): E03.9 - Hypothyroidism, unspecified (4) Hypomagnesemia: (5) Type 2 diabetes mellitus with hyperglycemia: Qualifiers: Diabetes mellitus care home insulin use: unspecified [place] insulin use status Qualified Code(s): E11.65 - Type 2 diabetes mellitus with hyperglycemia (6) Vitamin B 12 deficiency: Plan CONSULT REASON: Generalized weakness HPI: Taye Gay is a 67 y.o. female with a PMH of esophageal stricture, cigarette smoker, GERD, HTN, type 2 diabetes mellitus, HLD, CKD stage G2/A2, peripheral neuropathy and vit B12 deficiency who presented to [facility] on 11/10/23 for concerns regarding generalized [...] than as stated by me. Documented By: iLt Clark DO 4 1015 Signed By: <Electronically signed by Lit Clark DO> 11/11/23 1511 <Electronically signed by MD GAGE Vo> 11/11/23 1043 [facility] Work Phone: 1(993) 309-118107-14-2024 Progress note Author Kirt Renae [facility] November 10, 2023 12:24pm Note Date/Time November 10, 2023 12:[address] [facility] [address] [place] [address] Hospitalist Progress Note Signed Patient: Taye Gay MR#: [id number] : 1955 Acct:[id number] Age/Sex: 67 / F Adm Date: 4 Loc: 4N Room: 5S3331-7 Type: ADM IN Attending Dr: Kirt Renae [...] ESR and CRP -Obtain anti Sushma, Anti [employer]ER, anti dsDNA -Obtain CT head without contrast [...] signed by Kirt Renae MD> 11/10/23 1224 [facility] Work Phone: 1([phone]) 676-973607-14-2024 History and physical note Author Jluis Campos [facility] November 10, 2023 6:20am Note Date/Time November 10, 2023 6:[address] [facility] [address] [place] [address] Hospitalist H&P Signed Patient: Taye Gay MR#: [id number] : 1955 Acct:[id number] Age/Sex: 67 / F Adm Date: 4 Loc: 4N Room: 6W7133-8 Type: ADM IN Attending Dr: Jluis Campos [...] negative unless noted below or in HPI [facility] Medical History History of esophageal [...] History Father Heart disease [facility] Problem: Diagnosed with Stroke Cancer throat heart [...] Confirmed 11/09/23] pen needle, diabetic [Sure-Fine Pen Maiden] 06/12/23 [History Confirmed 11/09/23] omeprazole 20 mg [...] weaknesses were noted, patient unable to ambulate. Zwbo-ns-etdi test was normal. No tremors or ataxia with njmxju-nr-gzjm movements. Neuro: AOx3, CN II-VII intact. Moves [...] % (Auto) 26.0 % (.) 11/10/23 03:41 [place] % (Auto) 8.2 % (.) 11/10/23 03:41 Eos % (Auto) 3.7 % (.) 11/10/23 03:41 Baso % (Auto) 0.9 % (.) 11/10/23 03:41 Nucleat RBC Rel Count 0.1 /100 WBC (0-0.5) 11/10/23 03:41 Neut # (Auto) 5.2 x10E3/uL (1.8-7.7) 11/10/23 03:41 Lymph # (Auto) 2.2 x10E3/uL (1.00-4.8) 11/10/23 03:41 [place] # (Auto) 0.7 x10E3/uL (0.0-0.8) 11/10/23 03:41 [...] pH 6.0 (5.0-9.0) 11/10/23 05:02 Ur Specific [place] 1.007 (1.001-1.030) 11/10/23 05:02 Urine Protein Negative [...] signed by Jluis Campos DO> 11/10/23 0620 [facility] Work Phone: 1(336) [phone] [facility] History of Present illness Narrative* Jonas [...] to make adjustments and amiodarone before my custodial. Vitals: 10/07/23 0948 BP: 114/90 BP Location: [...] mellitus with other specified complication, unspecified whether care home insulin use (Multi) Managed by other providers 7. BMI 28.0-28.9,adult The merits of diet and weight loss were advocated Scribe Attestation By signing my name below, ISofie LPN, Scribe attest that this documentation has been prepared under the direction and in the presence of Soto Ch MD. Provider Attestation - Scribe documentation All medical record entries made by the Scribe were at my direction and personally dictated by me. Rosy reviewed the chart and agree that the record accurately reflects my personal performance of the history, physical exam, discussion and plan. documented in this encounterK[facility] Work Phone: [phone]) 791-698406-10-2024 Instructions* Patient Instructions* Cary Mcdonnell RN - [...] Fall Prevention Education Given documented in this [facility] Work Phone: 1(253) 838-389405-18-2024 Progress note Author Faraz Gilliam [facility] September 14, 2023 1:34pm Note Date/Time September 14, 2023 1:26p [facility] [address] [place] [address] Cardiology Progress Note Signed Patient: Taye Gay MR#: [id number] : 1955 Acct:[id number] Age/Sex: 67 / F Adm Date: 4 Loc: Room: [address] [place] [address] Type: ADM IN Attending Dr: Elva Florian [...] 1 month. Documented By: Faraz Gilliam MD 08/274 Signed By: <Electronically signed by Faraz Gilliam MD> 09/14/23 1334 [facility] Work Phone: 1(131) 527-481005-18-2024 Progress note Author Elva Florian [facility] September 14, 2023 2:03am Note Date/Time September 13, 2023 6:15p m [facility] [address] [place] [address] Hospitalist Progress Note Signed Patient: Taye Gay MR#: [id number] : 1955 Acct:[id number] Age/Sex: 67 / F Adm Date: 4 Loc: 3T Room: [address] [place] [address] Type: ADM IN Attending Dr: Evla Florian MD Copies to: ~ Date of [...] Insuln.Pen SUBCUT 09/11/24 21:59 Not Given TID.WM.HS [facility] Protocol Insulin Glargine 20 units 09/13/23 [...] 15 Mg Capsule PO 03/11/24 21:59 QHS [facility] A&P - Hospitalist Assessment/Plan (1) New onset atrial flutter: (2) Atrial flutter with rapid ventricular response: (3) Type 2 diabetes mellitus: (4) Hyperlipidemia: (5) Hypertension: Plan Documented By: Elva Florian MD 09/13/23 1807 Signed By: <Electronically signed by Elva Florian MD> 09/14/23 0203 [facility] Work Phone: 1(440) 496-762205-17-2024 Consult note Author Jonas Ch [facility] September 13, 2023 12:25pm Note Date/Time September 13, 2023 12:[address] [facility] [address] [place] [address] Cardiology Consult Note Signed Patient: Taye Gay MR#: [id number] : 1955 Acct:[id number] Age/Sex: 67 / F Adm Date: 4 Loc: Room: [address] [place] [address] Type: ADM INOo Attending Dr: Elva Florian [...] and no additional complaints, except as documented [facility] Medical History History of esophageal [...] Confirmed 09/12/23] pen needle, diabetic [Sure-Fine Pen Maiden] 06/12/23 [History Confirmed 09/12/23] nortriptyline 50 mg [...] x10E3/uL Lymph # (Auto) 2.0 (1.00-4.8) x10E3/uL [place] # (Auto) 0.6 (0.0-0.8) x10E3/uL Eos # [...] ml @ 999 mls/hr IV .Q1H1M ONE Rx#:[id number] Oral 50 / 50 Output: Urine 600 [...] signed by MD Jonas Ch> 09/13/23 1225 [facility] Work Phone: 1([phone]) [phone] History and physical note Author Elva Florian [facility] September 13, 2023 2:09am Note Date/Time September 12, 2023 7:53p m [facility] [address] [place] [address] Hospitalist H&P Signed Patient: Taye Gay MR#: [id number] : 1955 Acct:[id number] Age/Sex: 67 / F Adm Date: 4 Loc: Room: [address] [place] [address] Type: ADM INOo Attending Dr: Elva Florian [...] care Discussed with:?the medical team, the patient [facility] Medical History History of esophageal [...] History Father Heart disease [facility] Problem: Diagnosed with Stroke Cancer throat heart [...] conc 300 unit/mL (1.5 mL) subcutaneous pen ([place] SoloStar U-300 Insulin) 20 unit subcut DAILY 06/12/23 [History Confirmed 09/12/23] insulin lispro 100 unit/mL subcutaneous pen See Rx Instructions subcut ACHS 06/12/23 [History Confirmed 09/12/23] multivitamin 1 tab PO DAILY 06/12/23 [History Confirmed 09/12/23] pen needle, diabetic [Sure-Fine Pen Maiden] 06/12/23 [History Confirmed 09/12/23] nortriptyline 50 mg [...] % (Auto) 20.2 % (.) 09/12/23 14:51 [place] % (Auto) 5.9 % (.) 09/12/23 14:51 Eos % (Auto) 1.7 % (.) 09/12/23 14:51 Baso % (Auto) 0.9 % (.) 09/12/23 14:51 Nucleat RBC Rel Count 0.2 /100 WBC (0-0.5) 09/12/23 14:51 Neut # (Auto) 7.0 x10E3/uL (1.8-7.7) 09/12/23 14:51 Lymph # (Auto) 2.0 x10E3/uL (1.00-4.8) 09/12/23 14:51 [place] # (Auto) 0.6 x10E3/uL (0.0-0.8) 09/12/23 14:51 [...] signed by Elva Florian MD> 09/13/23 0209 [facility] Work Phone: 1(434) 297-729402-12-2024 Evaluation note* Encounter Date Diagnosis Assessment Notes Treatment Notes Treatment Clinical Notes May, Type 2 diabetes mellitus with hyperglycemia (ICD-10 - E11.65) [facility] Other 01-23-2024 Evaluation note* Encounter Date Diagnosis Assessment Notes Treatment Notes Treatment Clinical Notes Apr, Primary insomnia (ICD-10 - F51.01) [facility] Other 12-11-2023 Evaluation note* Encounter Date Diagnosis Assessment Notes Treatment Notes Treatment Clinical Notes Mar, Type 2 diabetes mellitus with hyperglycemia (ICD-10 - E11.65) [facility] Other 11-06-2023 Evaluation note* Encounter Date Diagnosis [...] Discussed can start famotidine PRN breakthrough GERD [facility] Other 10-02-2023 Evaluation note* Encounter Date Diagnosis Assessment Notes Treatment Notes Treatment Clinical Notes Jan, Primary insomnia (ICD-10 - F51.01) [facility] Other 09-11-2023 Evaluation note* Encounter Date Diagnosis Assessment Notes Treatment Notes Treatment Clinical Notes Dec, Type 2 diabetes mellitus with hyperglycemia (ICD-10 - E11.65) Managing type 2 diabetes material was published 1. Controlled, Type 2 diabetes with A1c 6.3% 2. Blood glucose levels improved. According to [employer] cgm download 12/25/2022- 3: Avg glucose 156. 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, halfway current use of insulin (ICD-10 - Z79.4) [...] to make it easier material was published [facility] Other 09-06-2023 Evaluation note* Encounter Date Diagnosis Assessment Notes Treatment Notes Treatment Clinical Notes Dec, Esophageal stricture (ICD-10 - K22.2) Dec, Dysphagia (ICD-10 - R13.10) Patient has a narrow esophagus but is improving Patient is to continue omeprazole daily [facility] Other 09-01-2023 Evaluation note* Encounter Date Diagnosis Assessment Notes Treatment Notes Treatment Clinical Notes Dec, Primary insomnia (ICD-10 - F51.01) [facility] Other 08-22-2023 Evaluation note* Encounter Date Diagnosis Assessment Notes Treatment Notes Treatment Clinical Notes Nov, Primary insomnia (ICD-10 - F51.01) [facility] Other 08-02-2023 Evaluation note* Encounter Date Diagnosis [...] reviewed and amended by provider signed below. [facility] Other 07-11-2023 Evaluation note* Encounter Date Diagnosis Assessment Notes Treatment Notes Treatment Clinical Notes Oct, Primary insomnia (ICD-10 - F51.01) [facility] Other 06-01-2023 Evaluation note* Encounter Date Diagnosis Assessment Notes Treatment Notes Treatment Clinical Notes Sep, Type 2 diabetes mellitus with hyperglycemia (ICD-10 - E11.65) Managing type 2 diabetes material was published 1. Controlled, Type 2 diabetes with A1c 6.6% 2. Blood glucose levels improved. According to [employer] cgm download 09/13/2022- 3: Avg glucose 151. 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) Sep, Peripheral neuropathy (ICD-10 - G62.9) Living with peripheral neuropathy material was published Sep, Vitamin B 12 deficiency (ICD-10 - E53.8) Good food sources of vitamin B12 material was published 08/2022 Vit b12 392 at target Sep, BMI 29.0-29.9,adult (ICD-10 - Z68.29) Eating healthy: tips to make it easier material was published [facility] Other 05-15-2023 Evaluation note* Encounter Date Diagnosis Assessment Notes Treatment Notes Treatment Clinical Notes August, Primary hypertension (ICD-10 - I10) August, Type 2 diabetes mellitus with hyperglycemia (ICD-10 - E11.65) [facility] Other 04-13-2023 Evaluation note* Encounter Date Diagnosis [...] Due for LDCT for lung CA screening [facility] Other 04-10-2023 Evaluation note* Encounter Date Diagnosis Assessment Notes Treatment Notes Treatment Clinical Notes Jul, Primary insomnia (ICD-10 - F51.01) [facility] Other 03-08-2023 Evaluation note* Encounter Date Diagnosis Assessment Notes Treatment Notes Treatment Clinical Notes Jun, Primary insomnia (ICD-10 - F51.01) [facility] Other 02-21-2023 Evaluation note* Encounter Date Diagnosis Assessment Notes Treatment Notes Treatment Clinical Notes May, Type 2 diabetes mellitus with hyperglycemia (ICD-10 - E11.65) [facility] Other 02-20-2023 Evaluation note* Encounter Date Diagnosis Assessment Notes Treatment Notes Treatment Clinical Notes May, Type 2 diabetes mellitus with hyperglycemia (ICD-10 - E11.65) Managing type 2 diabetes material was published 1. Uncontrolled, Type 2 diabetes with A1c 7.1% 2. Blood glucose levels improved. According to [employer] cgm download 06/04/2022-06/17/2022 : Avg glucose 180. 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) May, Peripheral neuropathy (ICD-10 - G62.9) Living with peripheral neuropathy material was published May, Vitamin B 12 deficiency (ICD-10 - E53.8) Good food sources of vitamin B12 material was published 08/2021 Vit b12 368 at target May, BMI 35.0-35.9,adult (ICD-10 - Z68.35) Setting weight-loss goals material was published [facility] Other 02-06-2023 Evaluation note* Encounter Date Diagnosis Assessment Notes Treatment Notes Treatment Clinical Notes May, Primary insomnia (ICD-10 - F51.01) [facility] Other 01-26-2023 Evaluation note* Encounter Date Diagnosis Assessment Notes Treatment Notes Treatment Clinical Notes 26 Dalton, 2023 Hyperlipidemia (ICD-10 - E78.5) [facility] Other 12-06-2022 Evaluation note* Encounter Date Diagnosis Assessment Notes Treatment Notes Treatment Clinical Notes Mar, Type 2 diabetes mellitus with hyperglycemia (ICD-10 - E11.65) [facility] Other 10-19-2022 Evaluation note* Encounter Date Diagnosis Assessment Notes Treatment Notes Treatment Clinical Notes Jan, Primary hypertension (ICD-10 - I10) [facility] Other 09-13-2022 Evaluation note* Encounter Date Diagnosis Assessment Notes Treatment Notes Treatment Clinical Notes Dec, Type 2 diabetes mellitus with hyperglycemia (ICD-10 - E11.65) Managing type 2 diabetes material was published 1. Uncontrolled, Type 2 diabetes with A1c 7.7% 2. Blood glucose levels above target. According to [employer] cgm download 12/26/2021- 2: Avg glucose 211. [...] or diabetes medication issues. 6. Prescriptions: Sample ashley x1 pen given. Sent order for ashley squires. Dec, Dietary counseling and surveillance (ICD-10 - Z71.3) Eat well, exercise well, be well: dietary and fitness guidelines material was published Dec, Hyperlipidemia (ICD-10 - E78.5) Managing your cholesterol material was published 08/2021 ldl 68- at target. 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, halfway current use of insulin (ICD-10 - Z79.4) [...] last visit, continue with weight loss efforts [facility] Other 08-17-2022 Progress note Author Walter Montgomery [facility] December 13, 2021 8:52am Note Date/Time December 13, 2021 8: 52am [facility] [address] [place] [address] General Surgery Progress Note Signed Patient: Taye Gay MR#: [id number] : 1955 Acct:[id number] Age/Sex: 66 / F Adm Date: 2 Loc: Room: [address] [place] [address] Type: ADM INOo Attending Dr: Wilmer Vance [...] Stop: 12/09/22 11:18 Aspirin (Aspirin 81 Mg Tablet) 81 mg PO DAILY [facility] Stop: 12/10/22 08:59 Last Admin: 12/12/21 10:33 Dose: Not Given Atorvastatin Calcium (Atorvastatin 10 Mg Tablet) 10 mg PO DAILY [facility] Stop: 12/10/22 08:59 Last Admin: 12/12/21 10:33 Dose: Not Given Cyanocobalamin (Cyanocobalamin 1,000 Mcg Tablet) 1,000 mcg PO DAILY [facility] Stop: 12/13/22 08:59 Dextrose (Dextrose 50% In Water 25 Gm/50 Ml Syringe) 0 gm IV-PUSH PRN PRN PRN Reason: Hypoglycemia Stop: 12/09/22 11:18 Docusate Sodium (Docusate 100 Mg Capsule) 100 mg PO TID [facility] Stop: 12/12/22 21:59 Last Admin: 12/12/21 [...] 50 mls @ 100 mls/hr IV Q24H [facility] Last Admin: 12/12/21 11:57 Dose: 100 mls/hr Sodium Chloride (0.9% Sodium Chloride 1,000 Ml) 1,000 mls @ 100 mls/hr IV .[id number] Stop: 12/12/22 00:00 Last Infusion: 12/13/21 03:35 Dose: Infused Lactated Ringer's (Lactated Ringers) 1,000 mls @ 20 mls/hr IV .Q24H ONE Stop: 12/13/21 11:13 Last Infusion: 12/13/21 03:31 Dose: Infused Insulin Aspart (Insulin Aspart 300 Units/3 Ml Insuln.Pen) 0 units SUBCUT TID..[facility]; Protocol Stop: 12/09/22 11:59 Last Admin: 12/13/21 08:07 Dose: 4 units Nortriptyline HCl (Nortriptyline 25 Mg Capsule) 50 mg PO BID [facility] Stop: 12/09/22 20:59 Last Admin: 12/12/21 22:27 Dose: 50 mg Omeprazole (Omeprazole 20 Mg Capsule.Dr) 20 mg PO DAILY [facility] Stop: 12/10/22 08:59 Last Admin: 12/12/21 [...] % (Auto) 90.4, Lymph % (Auto) 7.7, [place] % (Auto) 1.8, Eos % (Auto) 0.0, Baso % (Auto) 0.1, Neut # (Auto) 8.5 H, Lymph # (Auto) 0.7 L, [place] # (Auto) 0.2, Eos # (Auto) 0.0, [...] % (Auto) 72.7, Lymph % (Auto) 16.1, [place] % (Auto) 8.8, Eos % (Auto) 2.1, Baso % (Auto) 0.3, Neut # (Auto) 5.3, Lymph # (Auto) 1.2, [place] # (Auto) 0.6, Eos# (Auto) 0.2, Baso [...] % (Auto) 66.8, Lymph % (Auto) 21.0, [place] % (Auto) 9.2, Eos % (Auto) 2.6, Baso % (Auto) 0.4, Neut # (Auto) 4.1, Lymph # (Auto) 1.3, [place] # (Auto) 0.6, Eos # (Auto) 0.2, [...] signed by DO Walter Montgomery> 12/13/21 0852 [facility] Work Phone: [phone] 180-101108-16-2022 Progress note Author Teresa Strong [facility] December 12, 2021 8:43pm Note Date/Time December 12, 2021 2: 49pm [facility] [address] [place] [address] Urology Progress Note Signed Patient: Taye Gay MR#: [id number] : 1955 Acct:[id number] Age/Sex: 66 / F Adm Date: 2 Loc: Room: [address] [place] [address] Type: ADM INOo Attending Dr: Arleen Stephen [...] gravity with clear yellow urine Objective <Ingrid JanellmichaelDO, RES - Last Filed: 12/12/21 14:51> Pain [...] % (Auto) 72.7, Lymph % (Auto) 16.1, [place] % (Auto) 8.8, Eos % (Auto) 2.1, Baso % (Auto) 0.3, Neut # (Auto) 5.3, Lymph # (Auto) 1.2, [place] # (Auto) 0.6, Eos# (Auto) 0.2, Baso [...] % (Auto) 66.8, Lymph % (Auto) 21.0, [place] % (Auto) 9.2, Eos % (Auto) 2.6, Baso % (Auto) 0.4, Neut # (Auto) 4.1, Lymph # (Auto) 1.3, [place] # (Auto) 0.6, Eos # (Auto) 0.2, [...] 1451 <Electronically signed by Teresa Strong MD> 12/12/21 2043 [facility] Work Phone: [phone] 269-785408-16-2022 Progress note Author Alreen Stephen [facility] December 12, 2021 1:20pm Note Date/Time December 12, 2021 1: 20pm [facility] [address] [place] [address] Hospitalist Progress Note Signed Patient: Taye Gay MR#: [id number] : 1955 Acct:[id number] Age/Sex: 66 / F Adm Date: 2 Loc: Room: [address] [place] [address] Type: ADM INOo Attending Dr: Arleen Stephen [...] 09:00 12/12/21 10:33 Aspirin 81 [address] Table[address].Dr MINOR 12/10/22 08:59 Not Given DAILY PARMJIT Atorvastatin [...] 12/10/21 09:00 12/12/21 10:33 Omeprazole 20 Mg Capsule. PO 12/10/22 08:59 Not Given DAILY PARMJIT [...] signed by Arleen Stephen MD> 12/12/21 1320 [facility] Work Phone: [phone] 561-909508-16-2022 Progress note Author Walter Strongkarlos [facility] December 12, 2021 8:07am Note Date/Time December 12, 2021 8: 07am [facility] [address] [place] [address] General Surgery Progress Note Signed Patient: Taye Gay MR#: [id number] : 1955 Acct:[id number] Age/Sex: 66 / F Adm Date: 2 Loc: Room: [address] [place] [address] Type: ADM INOo Attending Dr: Arleen Stephen [...] 12/09/21] insulin lispro 100 unit/mL [facility] Insulin lispro) 1 sliding [...] 81 Mg Tablet.) 81 mg PO DAILY [facility] Stop: 12/10/22 08:59 Last Admin: 12/11/21 08:00 Dose: 81 mg Atorvastatin Calcium (Atorvastatin 10 Mg Tablet) 10 mg PO DAILY [facility] Stop: 12/10/22 08:59 Last Admin: 12/11/21 [...] 50 mls @ 100 mls/hr IV Q24H [facility] Last Infusion: 12/11/21 10:15 Dose: Infused Sodium Chloride (0.9% Sodium Chloride 1,000 Ml) 1,000 mls @ 100 mls/hr IV .[id number] Stop: 12/12/22 00:00 Last Admin: 12/12/21 00:10 Dose: 100 mls/hr Insulin Aspart (Insulin Aspart 300 Units/3 Ml Insuln.Pen) 0 units SUBCUT TID..[facility]; Protocol Stop: 12/09/22 11:59 Last Admin: 12/11/21 21:21 Dose: 3 units Nortriptyline HCl (Nortriptyline 25 Mg Capsule) 50 mg PO BID [facility] Stop: 12/09/22 20:59 Last Admin: 12/11/21 21:20 Dose: 50 mg Omeprazole (Omeprazole 20 Mg Capsule.Dr) 20 mg PO DAILY [facility] Stop: 12/10/22 08:59 Last Admin: 12/11/21 [...] % (Auto) 66.8, Lymph % (Auto) 21.0, [place] % (Auto) 9.2, Eos % (Auto) 2.6, Baso % (Auto) 0.4, Neut # (Auto) 4.1, Lymph # (Auto) 1.3, [place] # (Auto) 0.6, Eos # (Auto) 0.2, [...] signed by DO Walter Montgomery> 12/12/21 0807 [facility] Work Phone: [phone] [phone] Consult note Author Teresa Strong [facility] December 11, 2021 9:25pm Note Date/Time December 11, 2021 8: 10pm [facility] [address] [place] [address] Urology Consult Note Signed Patient: Taye Gay MR#: [id number] : 1955 Acct:[id number] Age/Sex: 66 / F Adm Date: 2 Loc: Room: [address] [place] [address] Type: ADM INOo Attending Dr: Arleen Stephen [...] insulin lispro 100 unit/mL subcutaneous pen ([facility] [employer] U-100 Insulin lispro) 1 sliding [...] % (Auto) 66.8, Lymph % (Auto) 21.0, [place] % (Auto) 9.2, Eos % (Auto) 2.6, Baso % (Auto) 0.4, Neut # (Auto) 4.1, Lymph # (Auto) 1.3, [place] # (Auto) 0.6, Eos # (Auto) 0.2, [...] % (Auto) 63.3, Lymph % (Auto) 24.1, [place] % (Auto) 10.5, Eos % (Auto) 1.8, Baso % (Auto) 0.3, Neut # (Auto) 4.7, Lymph # (Auto) 1.8, [place] # (Auto) 0.8, Eos # (Auto) 0.1, [...] <Electronically signed by Teresa Strong MD> 12/11/[address] [place] [address] Ctr Work Phone: [phone] Consult note Author Walter Montgomery [facility] December 11, 2021 3:18pm Note Date/Time December 11, 2021 3: 18pm [facility] [address] [place] [address] General Surgery Consult Note Signed Patient: Taye Gay MR#: [id number] : 1955 Acct:[id number] Age/Sex: 66 / F Adm Date: 2 Loc: Room: [address] [place] [address] Type: ADM INO Attending Dr: Arleen Stephen MD Copies to: NON STAFF MD Walter KayDO~ History of Present Illness Date of consult: [...] 81 Mg Tablet.) 81 mg PO DAILY [facility] Stop: 12/10/22 08:59 Last Admin: 12/11/21 08:00 Dose: 81 mg Atorvastatin Calcium (Atorvastatin 10 Mg Tablet) 10 mg PO DAILY [facility] Stop: 12/10/22 08:59 Last Admin: 12/11/21 08:00 Dose: 10 mg Dextrose (Dextrose 50% In Water 25 Gm/50 Ml Syringe) 0 gm IV-PUSH PRN PRN PRN Reason: Hypoglycemia Stop: 12/09/22 11:18 Enoxaparin Sodium (Enoxaparin 40 Mg/0.4 Ml Syringe) 40 mg SUBCUT DAILY@10 [facility] Stop: 12/10/22 09:59 Last Admin: 12/11/21 [...] PARMJIT Last Infusion: 12/11/21 10:15 Dose: Infused Insulin Aspart (Insulin Aspart 300 Units/3 Ml Insuln.Pen) 0 units SUBCUT TID.WM.[facility]; Protocol Stop: 12/09/22 11:59 Last Admin: 12/11/21 11:33 Dose: 3 units Nortriptyline HCl (Nortriptyline 25 Mg Capsule) 50 mg PO BID [facility] Stop: 12/09/22 20:59 Last Admin: 12/11/21 08:00 Dose: 50 mg Omeprazole (Omeprazole 20 Mg Capsule.Dr) 20 mg PO DAILY [facility] Stop: 12/10/22 08:59 [...] % (Auto) 66.8, Lymph % (Auto) 21.0, [place] % (Auto) 9.2, Eos % (Auto) 2.6, Baso % (Auto) 0.4, Neut # (Auto) 4.1, Lymph # (Auto) 1.3, [place] # (Auto) 0.6, Eos# (Auto) 0.2, Baso [...] % (Auto) 63.3, Lymph % (Auto) 24.1, [place] % (Auto) 10.5, Eos % (Auto) 1.8, Baso % (Auto) 0.3, Neut # (Auto) 4.7, Lymph # (Auto) 1.8, [place] # (Auto) 0.8, Eos # (Auto) 0.1, [...] % (Auto) 79.8, Lymph % (Auto) 9.6, [place] % (Auto) 9.1, Eos % (Auto)1.1, Baso % (Auto) 0.4, Neut # (Auto) 10.3 H, Lymph # (Auto) 1.2, [place] # (Auto) 1.2 H, Eos # (Auto) 0.1, Baso # (Auto) 0.1, Nucleated RBC % (auto) 0.0 12/09/21 08:35: Urine Color Yellow, Urine Appearance Cloudy A, Urine pH 5.5, Ur Specific [place] 1.030, Urine Protein Negative, Urine Glucose (UA) [...] <Electronically signed by DO Walter Montgomery> 12/11/211517 [facility] Work Phone: [phone] 161-699508-15-2022 Progress note Author Arleen Stephen [facility] December 11, 2021 1:33pm Note Date/Time December 11, 2021 1: 30pm [facility] [address] [place] [address] Hospitalist Progress Note Signed Patient: Taye Gay MR#: [id number] : 1955 Acct:[id number] Age/Sex: 66 / F Adm Date: 2 Loc: 3T Room: [address] [place] [address] Type: ADM INOo Attending Dr: Arleen Stephen [...] signed by Arleen Stephen MD> 12/11/21 1333 [facility] Work Phone: [phone] 700-764908-14-2022 Progress note Author Arleen Stephen [facility] December 10, 2021 11:26am Note Date/Time December 10, 2021 11 :26am [facility] [address] [place] [address] Hospitalist Progress Note Signed Patient: Taye Gay MR#: [id number] : 1955 Acct:[id number] Age/Sex: 66 / F Adm Date: 2 Loc: Room: [address] [place] [address] Type: ADM IN Attending Dr: Arleen Stephen [...] 1,000 Ml IV 12/09/22 11:29 75 mls/hr .[id number] PARMJIT Administration Ceftriaxone Sodium 1 gm in [...] signed by Arleen Stephen MD> 12/10/21 1126 [facility] Work Phone: [phone] 707-457508-13-2022 History and physical note Author Arleen Stephen [facility] December 09, 2021 11:38am Note Date/Time December 09, 2021 11 :38am [facility] [address] [place] [address] Hospitalist H&P Signed Patient: Taye Gay MR#: [id number] : 1955 Acct:[id number] Age/Sex: 66 / F Adm Date: 2 Loc: ER Room: Type: [facility] ER Attending Dr: Copies to: NON STAFF [...] % (Auto) 9.6 % (.) 12/09/21 08:50 [place] % (Auto) 9.1 % (.) 12/09/21 08:50 Eos % (Auto) 1.1 % (.) 12/09/21 08:50 Baso % (Auto) 0.4 % (.) 12/09/21 08:50 Neut # (Auto) 10.3 x10E3/uL (1.8-7.7) H 12/09/21 08:50 Lymph # (Auto) 1.2 x10E3/uL (1.00-4.8) 12/09/21 08:50 [place] # (Auto) 1.2 x10E3/uL (0.0-0.8) H 12/09/21 [...] pH 5.5 (5.0-9.0) 12/09/21 08:35 Ur Specific [place] 1.030 (1.001-1.030) 12/09/21 08:35 Urine Protein Negative [...] signed by Arleen Stephen MD> 12/09/21 1138 [facility] Work Phone: [phone] Evaluation note* Encounter Date Diagnosis Assessment Notes [...] good exercise tolerance overall. She does see [facility] diabetes clinic for management of her diabetes [...] to get her started back on this. [facility] Other 03-14-2022 Evaluation note* Encounter Date Diagnosis Assessment Notes Treatment Notes Treatment Clinical Notes Jun, Type 2 diabetes mellitus with hyperglycemia (ICD-10 - E11.65) Managing type 2 diabetes material was published 1. Controlled, Type 2 diabetes with A1c 6% 2. Blood glucose levels improved. According to [employer] cgm download 06/26/2021- 2: Avg glucose 132. [...] to ask: hypertension material was published Jun, halfway current use of insulin (ICD-10 - Z79.4) [...] (ICD-10 - L84) f/u with Dr. Limon [facility] Other 03-07-2022 Evaluation note* Encounter Date Diagnosis [...] apnea would also be evaluated if needed [facility] Other 01-10-2022 Evaluation note* Encounter Date Diagnosis [...] Reglan to see how she does. 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 She did have a colonoscopy done 5 years ago and states it was normal and she is due in 5 more years. I discussed other preventative measures such as vaccines but the patient is not at all interested in any vaccines. [facility] Other 12-14-2021 Evaluation note* Encounter Date Diagnosis Assessment Notes Treatment Notes Treatment Clinical Notes Mar, Type 2 diabetes mellitus with hyperglycemia (ICD-10 - E11.65) [facility] Other 12-06-2021 Evaluation note* Encounter Date Diagnosis [...] Pain in left leg (ICD-10 - M79.605) [facility] Other 11-29-2021 Evaluation note* Encounter Date Diagnosis Assessment Notes Treatment Notes Treatment Clinical Notes Feb, Type 2 diabetes mellitus with hyperglycemia (ICD-10 - E11.65) Managing type 2 diabetes material was published 1. Controlled, Type 2 diabetes with A1c 6.9% 2. Blood glucose levels according to [employer] cgm download 03/14/2021- 021: Avg glucose 167. [...] hypertension material was published On [employer]. 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 [facility] Other Chief complaint+Reason for visit Narrative* Reason for Visit [id number] Dietary counseling and surveillance Hyperlipidemia Hypertension Insulin long-term use Peripheral neuropathy Type 2 diabetes mellitus Vitamin B 12 deficiency [facility] Work Phone: Consult note Author Walter Montgomery [facility] December 11, 2021 3:18pm Note Date/Time December 11, 2021 3: 18pm [facility] [address] [place], [place] [id number] General Surgery Consult Note Signed Patient: Taye Gay MR#: [id number] : 1955 Acct:[id number] Age/Sex: 66 / F Adm Date: 2 Loc: 3T Room: [address] [place] [address] Type: ADM INOo Attending Dr: Arleen Stephen [...] 12/09/21] insulin lispro 100 unit/mL [facility] Insulin lispro) 1 sliding [...] 81 Mg Tablet.) 81 mg PO DAILY [facility] Stop: 12/10/22 08:59 Last Admin: 12/11/21 08:00 Dose: 81 mg Atorvastatin Calcium (Atorvastatin 10 Mg Tablet) 10 mg PO DAILY [facility] Stop: 12/10/22 08:59 Last Admin: 12/11/21 08:00 Dose: 10 mg Dextrose (Dextrose 50% In Water 25 Gm/50 Ml Syringe) 0 gm IV-PUSH PRN PRN PRN Reason: Hypoglycemia Stop: 12/09/22 11:18 Enoxaparin Sodium (Enoxaparin 40 Mg/0.4 Ml Syringe) 40 mg SUBCUT DAILY@10 [facility] Stop: 12/10/22 09:59 Last Admin: 12/11/21 [...] 50 mls @ 100 mls/hr IV Q24H [facility] Last Infusion: 12/11/21 10:15 Dose: Infused Insulin Aspart (Insulin Aspart 300 Units/3 Ml Insuln.Pen) 0 units SUBCUT TID.WM.HS [facility]; Protocol Stop: 12/09/22 11:59 Last Admin: 12/11/21 11:33 Dose: 3 units Nortriptyline HCl (Nortriptyline 25 Mg Capsule) 50 mg PO BID [facility] Stop: 12/09/22 20:59 Last Admin: 12/11/21 08:00 Dose: 50 mg Omeprazole (Omeprazole 20 Mg Capsule.) 20 mg PO DAILY [facility] Stop: 12/10/22 08:59 Last Admin: 12/11/21 [...] % (Auto) 66.8, Lymph % (Auto) 21.0, [place] % (Auto) 9.2, Eos % (Auto) 2.6, Baso % (Auto) 0.4, Neut # (Auto) 4.1, Lymph # (Auto) 1.3, [place] # (Auto) 0.6, Eos# (Auto) 0.2, Baso [...] % (Auto) 63.3, Lymph % (Auto) 24.1, [place] % (Auto) 10.5, Eos % (Auto) 1.8, Baso % (Auto) 0.3, Neut # (Auto) 4.7, Lymph # (Auto) 1.8, [place] # (Auto) 0.8, Eos # (Auto) 0.1, [...] % (Auto) 79.8, Lymph % (Auto) 9.6, [place] % (Auto) 9.1, Eos % (Auto)1.1, Baso % (Auto) 0.4, Neut # (Auto) 10.3 H, Lymph # (Auto) 1.2, [place] # (Auto) 1.2 H, Eos # (Auto) 0.1, Baso # (Auto) 0.1, Nucleated RBC % (auto) 0.0 12/09/21 08:35: Urine Color Yellow, Urine Appearance Cloudy A, Urine pH 5.5, Ur Specific [place] 1.030, Urine Protein Negative, Urine Glucose (UA) [...] By: <Electronically signed by DO Walter Montgomery> 12/11/218 [facility] Work Phone: Consult note Author Teresa Strong [facility] December 11, 2021 9:25pm Note Date/Time December 11, 2021 8: 10pm [facility] [address] [place] [address] Urology Consult Note Signed Patient: Taye Gay MR#: [id number] : 1955 Acct:[id number] Age/Sex: 66 / F Adm Date: 2 Loc: Room: [address] [place] [address] Type: ADM INOo Attending Dr: Arleen Stephen [...] 12/09/21] insulin lispro 100 unit/mL [facility] Insulin lispro) 1 sliding scale [...] % (Auto) 66.8, Lymph % (Auto) 21.0, [place] % (Auto) 9.2, Eos % (Auto) 2.6, Baso % (Auto) 0.4, Neut # (Auto) 4.1, Lymph # (Auto) 1.3, [place] # (Auto) 0.6, Eos # (Auto) 0.2, [...] % (Auto) 63.3, Lymph % (Auto) 24.1, [place] % (Auto) 10.5, Eos % (Auto) 1.8, Baso % (Auto) 0.3, Neut # (Auto) 4.7, Lymph # (Auto) 1.8, [place] # (Auto) 0.8, Eos # (Auto) 0.1, [...] <Electronically signed by Teresa Strong MD> 12/11/21 6630 [facility] Work Phone: Consult note Author Lit Clark [facility] Note Date/Time April 29, 2024 11 :07am [facility] [address] [place] [address] Neurology Consult Note Signed Patient: Taye Gay MR#: [id number] : 1955 Acct:[id number] Age/Sex: 68 / F Adm Date: 4 Loc: Room: [address] [place] [address] Type: ADM IN Attending Dr: Priscilla Lang MD Copies to: DO Sandra Garrido DO Rafik Massouh, MD~ HPI Consult Date: 04/29/24 Svp: Lit Clark DO Reason for consult: Slurred [...] negative unless noted below or in HPI [facility] Medical History BMI 32.0-32.9,adult Abnormal thyroid blood [...] History Father [facility]: Diagnosed with Stroke Cancer throat heart [...] (Stool Softener) 100 mg PO DAILY PRN cevuuozqievl93/14/24 [History Confirmed 04/28/24] multivitamin 1 tab PO DAILY 06/12/23 [History Confirmed 04/28/24] pen needle, diabetic [Sure-Fine Pen [place]iden] 06/12/23 [History Confirmed 04/28/24] metformin 500 mg [...] Oz Bowling M.D.04/28/2024 9:46 PM Dictation Location: [facility] 04/28/24 19:44 IMPRESSION: No acute intracranial pathology. No evidence of focal stenosis, aneurysmal dilatation, dissection or occlusion. Impression dictated by: Oz Bowling M.D.04/28/2024 9:44 PM Dictation Location: [place] [address] Assessment/Plan (1) Atrial fibrillation: Qualifiers: Atrial fibrillation [...] may be metabolic in nature and not lead customer service representative necessarily of transient ischemia or of [...] signed by Lit Clark DO> 04/29/24 110 [facility] Work Phone: Discharge summary Author Wilmer Vance [facility] December 13, 2021 1:58pm Note Date/Time December 13, 2021 1: 58pm [facility] [address] [place], [place] [id number] Discharge Summary Signed Patient: Taye Gay MR#: [id number] : 1955 Acct:[id number] Age/Sex: 66 / F Adm Date: 2 Loc: Room: [address] [place] [address]: Wilmer Vance MD Copies to: [...] % (Auto) 90.4, Lymph % (Auto) 7.7, [place] % (Auto) 1.8, Eos % (Auto) 0.0, Baso % (Auto) 0.1, Neut # (Auto) 8.5 H, Lymph # (Auto) 0.7 L, [place] # (Auto) 0.2,Eos # (Auto) 0.0, Baso [...] Instructions: Cholecystectomy, Laparoscopic Surgery, Acetaminophen, Cefuroxime,[facility] [place] [facility] at Home Prescriptions: New acetaminophen [...] signed by Wilmer Vance MD> 12/13/21 1358 [facility] Work Phone: Discharge summary Author Elva Florian [facility] September 15, 2023 1:17am Note Date/Time September 14, 2023 2:20p m [facility] [address] [place] [address] Discharge Summary Signed Patient: Taye Gay MR#: [id number] : 1955 Acct:[id number] Age/Sex: 67 / F Adm Date: 4 Loc: Room: [address] [place] [address]: Elva Florian MD Copies to: Sandra Keita, DO Elva Florian MD~ Providers Date of Discharge: 09/14/23 Discharging [...] .Route (DME) pen needle, diabetic [Sure-Fine Pen Maiden] .Route (DME) FreeStyle Brent 14 Day Sensor [...] signed by Elva Florian MD> 09/15/23 0117 [facility] Work Phone: Discharge summary Author Priscilla Lang [facility] Note Date/Time April 30, 2024 10 :28am [facility] [address] [place] [address] Discharge Summary Signed Patient: Taye Gay MR#: [id number] : 1955 Acct:[id number] Age/Sex: 68 / F Adm Date: 4 Loc: Room: [address] [place] [address]: Priscilla Lang MD Copies to: [...] taking multiple medications that could potentially cause RESEARCH DIETITIAN side effect and toxic encephalopathy. Diagnosis is [...] polypharmacy regimen to reduce her risk of RESEARCH DIETITIAN side effects or drug?drug interaction. At this [...] ask her primary care doctor to obtain [facility] record entirely to address abnormalities seen on [...] ask your primary care provider to obtain [facility] records entirely to follow up on all [...] or having drug?drug interaction. Discharging you from [facility] does not mean that your medical care [...] constipation) (DME) pen needle, diabetic [Sure-Fine Pen Maiden] .Route lidocaine 5 % ointment 1 applic [...] % (Auto) 63.5, Lymph % (Auto) 24.9, [place] % (Auto) 8.3, Eos % (Auto) 2.9, Baso % (Auto) 0.4, Nucleat RBC Rel Count 0.0, Neut # (Auto) 4.6, Lymph # (Auto) 1.8, [place] # (Auto) 0.6, Eos # (Auto) 0.2, [...] signed by Priscilla Lang MD> 04/30/24 1028 [facility] Work Phone: Evaluation noteNo [employer] Other Evaluation note* Diagnosis Onset Date Resolution Status Cholelithiasis acute Emphysematous cystitis acute Pyelonephritis acute Right lateral abdominal pain acute [facility] Work Phone: Evaluation noteNo assessment information available [facility] Work Phone: Evaluation note* Diagnosis Onset Date Resolution Status [id number] acute Dietary counseling and surveillance acute Hyperlipidemia acute Hypertension acute Insulin long-term use acute Peripheral neuropathy acute Type 2 diabetes mellitus acu te Vitamin B 12 deficiency acut e [facility] Work Phone: evaluation note* Diagnosis Onset Date Resolution Status BMI 28.0-28.9,adult acute [id number] acute Dietary counseling and surveillance acute Hyperlipidemia acute Hypertension acute Insulin long-term use acute Peripheral neuropathy acute Type 2 diabetes mellitus acu te Vitamin B 12 deficiency acut e [facility] Work Phone: evaluation note* Diagnosis Onset Date Resolution Status BMI 28.0-28.9,adult acute [id number] acute Dietary counseling and surveillance acute Hyperlipidemia acute Hypertension acute Insulin long-term use acute Peripheral neuropathy acute Type 2 diabetes mellitus acu te Vitamin B 12 deficiency acut e Dizziness acute Hypertension acute Primary insomnia acute Type 2 diabetes mellitus acu te [facility] Work Phone: evaluation note* Diagnosis Onset Date Resolution Status BMI 28.0-28.9,adult acute [id number] acute Dietary counseling and surveillance acute Hyperlipidemia acute Hypertension acute Insulin long-term use acute Peripheral neuropathy acute Type 2 diabetes mellitus acu te Vitamin B 12 deficiency acut e Dizziness acute Hypertension acute Primary insomnia acute Type 2 diabetes mellitus acu te PAD (peripheral artery disease) acute [facility] Work Phone: evaluation note* Diagnosis Onset Date Resolution Status PAD (peripheral artery disease) acute BMI 28.0-28.9,adult acute [id number] acute Dietary counseling and surveillance acute Hyperlipidemia acute Hypertension acute Peripheral neuropathy acute Tachycardia acute Type 2 diabetes mellitus acu te Vitamin B 12 deficiency acut e Atrial flutter with rapid ventricular response acute Chest pain acute Hyperlipidemia acute Hypertension acute New onset atrial flutter acu te Type 2 diabetes mellitus acu te [facility] Work Phone: evaluation note* Diagnosis Onset Date Resolution Status PAD (peripheral artery disease) acute BMI 28.0-28.9,adult acute [id number] acute Dietary counseling and surveillance acute Hyperlipidemia acute Hypertension acute Peripheral neuropathy acute Tachycardia acute Type 2 diabetes mellitus acu te Vitamin B 12 deficiency acut e Atrial flutter with rapid ventricular response acute Chest pain acute Hyperlipidemia acute Hypertension acute New onset atrial flutter acu te Type 2 diabetes mellitus acu te New onset atrial flutter acu te Mobility impaired noneactive [facility] Work Phone: Evaluation note* Diagnosis Typical atrial flutter (Multi) Nonischemic cardiomyopathy (Multi) Other primary cardiomyopathies Hypertension, unspecified type Hypercholesteremia Pure hypercholesterolemia Smoker Tobacco use disorder Type 2 diabetes mellitus with other specified complication, unspecified whether care home insulin use (Multi) BMI 28.0-28.9,adult documented in this encounter [facility] Work Phone: Evaluation note* Diagnosis Onset Date Resolution Status BMI 28.0-28.9,adult acute [id number] acute Dietary counseling and surveillance acute Hyperlipidemia [...] diabetes mellitus acu te Mobility impaired noneactive [facility] Work Phone: Evaluation note* Diagnosis Onset Date Resolution Status BMI 28.0-28.9,adult acute [id number] acute Dietary counseling and surveillance acute Hyperlipidemia [...] diabetes mellitus with hyperglycemia acute Weakness acute [facility] Work Phone: Evaluation note* Diagnosis Onset Date Resolution Status BMI 28.0-28.9,adult acute [id number] acute Dietary counseling and surveillance acute Hyperlipidemia [...] B 12 deficiency acut e Weakness acute [facility] Work Phone: Evaluation note* Diagnosis Onset Date Resolution Status BMI 28.0-28.9,adult acute [id number] acute Dietary counseling and surveillance acute Hyperlipidemia [...] acut e Weakness acute BMI 28.0-28.9,adult acute [id number] acute Dietary counseling and surveillance acute Hyperlipidemia acute Hypertension acute Peripheral neuropathy acute Type 2 diabetes mellitus acu te Vitamin B 12 deficiency acut e [facility] Work Phone: Evaluation note* Diagnosis Onset Date Resolution Status BMI 28.0-28.9,adult acute [id number] acute Dietary counseling and surveillance acute Hyperlipidemia [...] thyroid blood test acute BMI 28.0-28.9,adult acute [id number] acute Dietary counseling and surveillance acute Hyperlipidemia acute Hypertension acute Peripheral neuropathy acute Type 2 diabetes mellitus acu te Vitamin B 12 deficiency acut e [facility] Work Phone: Evaluation note* Diagnosis Onset Date Resolution Status BMI 28.0-28.9,adult acute [id number] acute Dietary counseling and surveillance acute Hyperlipidemia [...] thyroid blood test acute BMI 28.0-28.9,adult acute [id number] acute Dietary counseling and surveillance acute Hyperlipidemia acute Hypertension acute Peripheral neuropathy acute Type 2 diabetes mellitus acu te Vitamin B 12 deficiency acut e Hospital discharge follow-up acute Hypomagnesemia acute [facility] Work Phone: Evaluation note* Diagnosis Onset Date Resolution Status Ambulatory dysfunction acute Hypomagnesemia acute Hypothyroid acute Type 2 diabetes mellitus with hyperglycemia acute Vitamin B 12 deficiency acut e Weakness acute Abnormal thyroid blood test acute BMI 28.0-28.9,adult acute [id number] acute Dietary counseling and surveillance acute Hyperlipidemia acute Hypertension acute Peripheral neuropathy acute Type 2 diabetes mellitus acu te Vitamin B 12 deficiency acut e Hospital discharge follow-up acute Hypomagnesemia acute [facility] Work Phone: Evaluation note* Diagnosis Ulcer of right foot, limited to breakdown of skin (CMS/HCC)- Primary Blister of right foot, subsequent encounter 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) documented in this encounter [facility] HealthcareEvaluation note* Diagnosis Onset Date Resolution Status Ambulatory dysfunction acute Hypomagnesemia acute Hypothyroid acute Type 2 diabetes mellitus with hyperglycemia acute Vitamin B 12 deficiency acut e Weakness acute Abnormal thyroid blood test acute BMI 28.0-28.9,adult acute [id number] acute Dietary counseling and surveillance acute Hyperlipidemia acute Hypertension acute Peripheral neuropathy acute Type 2 diabetes mellitus acu te Vitamin B 12 deficiency acut e Hospital discharge follow-up acute Hypomagnesemia acute Weakness acute [facility] Work Phone: Evaluation note* Diagnosis Leg [...] exposed (CMS/HCC) documented in this encounter [facility] HealthcareEvaluation note* Diagnosis Leg pain, bilateral- Primary [...] syndrome B12 deficiency documented in this encounter [facility] HealthcareEvaluation note* Diagnosis Hypertension, unspecified type Typical atrial flutter (Multi) documented in this encounter [facility] Work Phone: Evaluation note* Diagnosis Lumbosacral radiculopathy at S1- Primary Neurogenic pain Cervical paraspinal muscle spasm Spasm of muscle Lumbar paraspinal muscle spasm Other symptoms referable to back Carpal tunnel syndrome, bilateral Carpal tunnel syndrome B12 deficiency documented in this encounter [facility] HealthcareEvaluation note* Diagnosis Nonischemic cardiomyopathy (Multi)- Primary Other primary cardiomyopathies Typical atrial flutter (Multi) Hypercholesteremia Pure hypercholesterolemia Primary hypertension Unspecified essential hypertension Current smoker BMI 28.0-28.9,adult High risk medication use documented in this encounter [facility] Work Phone: Evaluation note* Diagnosis Leg pain, [...] blood cell count documented in this encounter [facility] HealthcareEvaluation note* Diagnosis Leg pain, bilateral- Primary [...] of foot (CMS/HCC) documented in this encounter [facility] HealthcareEvaluation note* Diagnosis High risk medication use- Primary Typical atrial flutter (Multi) Nonischemic cardiomyopathy (Multi) Other primary cardiomyopathies Hypercholesteremia Pure hypercholesterolemia BMI 28.0-28.9,adult BMI 30.0-30.9,adult Current smoker documented in this encounter [facility] Work Phone: Evaluation note* Diagnosis Carpal tunnel syndrome, bilateral- Primary Carpal tunnel syndrome documented in this encounter [facility] HealthcareEvaluation note* Diagnosis Ulcer of right foot, limited to breakdown of skin (CMS/HCC)- Primary Cellulitis of right foot documented in this encounter [facility] HealthcareEvaluation note* Diagnosis Ulcer of right foot, limited to breakdown of skin (CMS/HCC)- Primary Blister of right foot, initial encounter 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) documented in this encounter [facility] HealthcareEvaluation note* Diagnosis Typical atrial flutter (Multi)- Primary Nonischemic cardiomyopathy (Multi) Other primary cardiomyopathies Hypercholesteremia Pure hypercholesterolemia Hypertension, unspecified type BMI 32.0-32.9,adult Current smoker documented in this encounter [facility] Work Phone: Evaluation note* Diagnosis Leg pain, [...] of toe, right documented in this encounter [facility] HealthcareEvaluation note* Diagnosis Leg pain, bilateral- Primary [...] hospital admission documented in this encounter [facility]* [...] limb Bilateral leg weakness Muscle weakness (generalized) Hand weakness- Primary Muscle weakness (generalized) Carpal tunnel syndrome, bilateral Carpal tunnel syndrome documented in this encounter [facility] Healthcare[facility] and physical note Author Arleen Stephen [facility] December 09, 2021 11:38am Note Date/Time December 09, 2021 11 :38am [facility] [address] [place] [address] Hospitalist H&P Signed Patient: Taye Gay MR#: [id number] : 1955 Acct:[id number] Age/Sex: 66 / F Adm Date: 2 Loc: ER Room: Type: [facility] ER Attending Dr: Copies to: NON STAFF [...] % (Auto) 9.6 % (.) 12/09/21 08:50 [place] % (Auto) 9.1 % (.) 12/09/21 08:50 Eos % (Auto) 1.1 % (.) 12/09/21 08:50 Baso % (Auto) 0.4 % (.) 12/09/21 08:50 Neut # (Auto) 10.3 x10E3/uL (1.8-7.7) H 12/09/21 08:50 Lymph # (Auto) 1.2 x10E3/uL (1.00-4.8) 12/09/21 08:50 [place] # (Auto) 1.2 x10E3/uL (0.0-0.8) H 12/09/21 [...] pH 5.5 (5.0-9.0) 12/09/21 08:35 Ur Specific [place] 1.030 (1.001-1.030) 12/09/21 08:35 Urine Protein Negative [...] signed by Arleen Stephen MD> 12/09/21 1138 [facility] Work Phone: History and physical note Author Jluis Campos [facility] November 10, 2023 6:20am Note Date/Time November 10, 2023 6:[address] [facility] [address] [place] [address] Hospitalist H&P Signed Patient: Taye Gay MR#: [id number] : 1955 Acct:[id number] Age/Sex: 67 / F Adm Date: 4 Loc: 4N Room: 5T5015-0 Type: ADM IN Attending Dr: Jluis Campos [...] negative unless noted below or in HPI [facility] Medical History History of esophageal [...] Confirmed 11/09/23] pen needle, diabetic [Sure-Fine Pen [place]iden] 06/12/23 [History Confirmed 11/09/23] omeprazole 20 mg [...] weaknesses were noted, patient unable to ambulate. Hbhc-ty-twhm test was normal. No tremors or ataxia with vofmgh-ee-nynu movements. Neuro: AOx3, CN II-VII intact. Moves [...] % (Auto) 26.0 % (.) 11/10/23 03:41 [place] % (Auto) 8.2 % (.) 11/10/23 03:41 Eos % (Auto) 3.7 % (.) 11/10/23 03:41 Baso % (Auto) 0.9 % (.) 11/10/23 03:41 Nucleat RBC Rel Count 0.1 /100 WBC (0-0.5) 11/10/23 03:41 Neut # (Auto) 5.2 x10E3/uL (1.8-7.7) 11/10/23 03:41 Lymph # (Auto) 2.2 x10E3/uL (1.00-4.8) 11/10/23 03:41 [place] # (Auto) 0.7 x10E3/uL (0.0-0.8) 11/10/23 03:41 [...] pH 6.0 (5.0-9.0) 11/10/23 05:02 Ur Specific [place] 1.007 (1.001-1.030) 11/10/23 05:02 Urine Protein Negative [...] signed by Jluis Campos DO> 11/10/23 0620 [facility] Work Phone: History and physical note Author Jori Hearn [facility] Note Date/Time April 29, 2024 6: 39am [facility] [address] [place] [address] Hospitalist H&P Signed Patient: Taye Gay MR#: [id number] : 1955 Acct:[id number] Age/Sex: 68 / F Adm Date: 4 Loc: Room: 1I5550-5 Type: ADM IN Attending Dr: Jori Hearn [...] of dementia, possible Alzheimer's dementia -continue home mg twice daily and donepezil 20 mg daily 12. Atrial fibrillation - continue Eliquis 5 mg twice daily for anticoagulationand carvedilol 12.5 mg twice daily. EKG in ER shows NSR 13. Hypoxia - no respiratory distress or cardiopulmonary complaints to accompany this. Will monitor telemetry and address as needed [facility] Medical History BMI 32.0-32.9,adult Abnormal thyroid blood [...] (Stool Softener) 100 mg PO DAILY PRN zxyyeihvnuzk28/14/24 [History Confirmed 04/28/24] multivitamin 1 tab PO DAILY 06/12/23 [History Confirmed 04/28/24] pen needle, diabetic [Sure-Fine Pen [place]iden] 06/12/23 [History Confirmed 04/28/24] metformin 500 mg [...] % (Auto) 24.6 % (.) 04/28/24 19:54 [place] % (Auto) 7.6 % (.) 04/28/24 19:54 Eos % (Auto) 2.7 % (.) 04/28/24 19:54 Baso % (Auto) 1.1 % (.) 04/28/24 19:54 Nucleat RBC Rel Count 0.2 /100 WBC (0-0.5) 04/28/24 19:54 Neut # (Auto) 6.5 x10E3/uL (1.8-7.7) 04/28/24 19:54 Lymph # (Auto) 2.5 x10E3/uL (1.00-4.8) 04/28/24 19:54 [place] # (Auto) 0.8 x10E3/uL (0.0-0.8) 04/28/24 19:54 [...] pH 5.5 (5.0-9.0) 04/28/24 22:02 Ur Specific [place] 1.038 (1.001-1.030) H 04/28/24 22:02 Urine Protein [...] 3 Documented By: Jori Hearn DO 04/28/24 57 Signed By: <Electronically signed by Jori Hearn DO> 04/29/24 0639 [facility] Work Phone: History and physical note Author Manjit Gleason [facility] Note Date/Time September 10, 2024 12:[address] [facility] [address] [place] [address] Gastroenterology H&P Signed Patient: Taye Gay MR#: [id number] : 1955 Acct:[id number] Age/Sex: 68 / F Adm Date: 5 Loc: Room: Type: [facility] Attending Dr: Manjit Gleason MD Copies to: DO Manjit Daniels MD~ Date of Service: 09/10/2024 HISTORY & [...] signed by Manjit Gleason MD> 09/10/24 1241 [facility] Work Phone: Hiscmxs general Narrative - Reported* Type Description Date Medical History HTN Medical History Diabetes Medical History Obesity Medical History HLP Medical History tonsillectomy Medical History hysterectomy Medical History Cataracts removed Bilateral Medical History Upper eye lift Surgical History tonsillectomy Surgical History hysterectomy Surgical History cataracts, bilaterally Surgical History eye lid surgery Surgical History removed cervix 12/2018 [facility] Other [facility] general Narrative - Reported* Type Description Date Medical History HTN Medical History Diabetes Medical History Obesity Medical History HLP Medical History tonsillectomy Medical History hysterectomy Medical History Cataracts removed Bilateral Medical History Upper eye lift Surgical History tonsillectomy Surgical History hysterectomy Surgical History cataracts, bilaterally Surgical History eye lid surgery Surgical History removed cervix 12/2018 Hospitalization History See Above [facility] Other [facility] general Narrative - Reported* Type Description Date Medical History HTN Medical History Diabetes Medical History Obesity Medical History HLP Medical History tonsillectomy Medical History hysterectomy Medical History Cataracts removed Bilateral Medical History Upper eye lift Surgical History tonsillectomy Surgical History partial hysterectomy Surgical History cataracts, bilaterally Surgical History eye lid surgery--bilateral Surgical History removed cervix 12/2018 Hospitalization History See Above [facility] Other Hiswtai general Narrative - Reported* Type Description Date [...] History UTI and gallbladder jami yusef 11/2021 [facility] Other Hisq[facility] general Narrative - Reported* Type Description Date [...] History UTI and gallbladder jami yusef 11/2021 [facility] Other [facility] Work Phone: [facility] Dis[facility] instructions[facility] Work Phone: [facility] Dis[facility] instructions[facility] Work Phone: Hospital Discharge instructions[facility] Work Phone: Hospital Discharge [...] - Care to be managed by PCP [facility] Work Phone: Hospital Discharge instructions Additional Instructions I may not have addressed or treated all of your medical illnesses or the abnormal blood work or imaging studies during this hospitalization. Please ask your primary care provider to obtain [facility] records entirely to follow up on all [...] having drug drug interaction. Discharging you from [facility] does not mean that your medical care ends here and now. You may still need additional monitoring, work up, investigation, and treatment plan to be handled from this point on by out patient providers including your primary care provider and specialists. For any medication question, please contact your retail pharmacist or your primary care provider. Thank you.[facility] Work Phone: Hospital Discharge instructionsAmbulatory Orders* Referral to Pain Management Location: None Selected [facility] Work Phone: Progress note Author Arleen Stephen [facility] December 10, 2021 11:26am Note Date/Time December 10, 2021 11 :26am [facility] [address] [place] [address] Hospitalist Progress Note Signed Patient: Taye Gay MR#: [id number] : 1955 Acct:[id number] Age/Sex: 66 / F Adm Date: 2 Loc: Room: [address] [place] [address] Type: ADM IN Attending Dr: Arleen Stephen [...] 1,000 Ml IV 12/09/22 11:29 75 mls/hr .[id number] PARMJIT Administration Ceftriaxone Sodium 1 gm in [...] prophylaxis Documented By: Arleen Stephen MD 12/10/21 112 Signed By: <Electronically signed by Arleen Stephen MD> 12/10/21 1126 [facility] Work Phone: Progress note Author Arleen Stephen [facility] December 11, 2021 1:33pm Note Date/Time December 11, 2021 1: 30pm [facility] [address] [place] [address] Hospitalist Progress Note Signed Patient: Taye Gay MR#: [id number] : 1955 Acct:[id number] Age/Sex: 66 / F Adm Date: 2 Loc: Room: [address] [place] [address] Type: ADM INOo Attending Dr: Arleen Stephen [...] <Electronically signed by Arleen Stephen MD> 12/11/21 1332 [facility] Work Phone: Progress note Author Walter Montgomery [facility] December 12, 2021 8:07am Note Date/Time December 12, 2021 8: 07am [facility] [address] [place] [address] General Surgery Progress Note Signed Patient: Taye Gay MR#: [id number] : 1955 Acct:[id number] Age/Sex: 66 / F Adm Date: 2 Loc: Room: [address] [place] [address] Type: ADM INOo Attending Dr: Arleen Stephen [...] insulin lispro 100 unit/mL subcutaneous pen ([facility]100 Insulin lispro) 1 sliding [...] 81 Mg Tablet.) 81 mg PO DAILY [facility] Stop: 12/10/22 08:59 Last Admin: 12/11/21 08:00 Dose: 81 mg Atorvastatin Calcium (Atorvastatin 10 Mg Tablet) 10 mg PO DAILY [facility] Stop: 12/10/22 08:59 Last Admin: 12/11/21 08:00 Dose: 10 mg Dextrose (Dextrose 50% In Water 25 Gm/50 Ml Syringe) 0 gm IV-PUSH PRN PRN PRN Reason: Hypoglycemia Stop: 12/09/22 11:18 Enoxaparin Sodium (Enoxaparin 40 Mg/0.4 Ml Syringe) 40 mg SUBCUT DAILY@10 [facility] Stop: 12/10/22 09:59 Last Admin: 12/11/21 [...] Ml) 1,000 mls @ 100 mls/hr IV .[id number] Stop: 12/12/22 00:00 Last Admin: 12/12/21 00:10 Dose: 100 mls/hr Insulin Aspart (Insulin Aspart 300 Units/3 Ml Insuln.Pen) 0 units SUBCUT TID.WM.HS [facility]; Protocol Stop: 12/09/22 11:59 Last Admin: 12/11/21 21:21 Dose: 3 units Nortriptyline HCl (Nortriptyline 25 Mg Capsule) 50 mg PO BID [facility] Stop: 12/09/22 20:59 Last Admin: 12/11/21 21:20 Dose: 50 mg Omeprazole (Omeprazole 20 Mg Capsule.Dr) 20 mg PO DAILY [facility] Stop: 12/10/22 08:59 Last Admin: 12/11/21 08:00 Dose: 20 mg Ondansetron HCl (Ondansetron 4 Mg/2 Ml Vial) 4 mg IV-PUSH Q8H PRN PRN Reason: Nausea And Vomiting Stop: 12/09/22 11:18 Pioglitazone HCl (Pioglitazone 15 Mg Tablet) 15 mg PO DAILY [facility] Stop: 12/10/22 08:59 Last Admin: 12/11/21 [...] % (Auto) 66.8, Lymph % (Auto) 21.0, [place] % (Auto) 9.2, Eos % (Auto) 2.6, Baso % (Auto) 0.4, Neut # (Auto) 4.1, Lymph # (Auto) 1.3, [place] # (Auto) 0.6, Eos # (Auto) 0.2, [...] obstruction Status: Acute Documented By: Walter Montgomery, 12/12/21801 Signed By: <Electronically signed by DO Walter Montgomery> 12/12/21 0807 [facility] Work Phone: Progress note Author Arleen Stephen [facility] December 12, 2021 1:20pm Note Date/Time December 12, 2021 1: 20pm [facility] [address] [place] [address] Hospitalist Progress Note Signed Patient: Taye Gay MR#: [id number] : 1955 Acct:[id number] Age/Sex: 66 / F Adm Date: 2 Loc: Room: [address] [place] [address] Type: ADM INOo Attending Dr: Arleen Stephen [...] Insuln.Pen SUBCUT 12/09/22 11:59 Not Given TID.WM.HS [facility] Protocol Lidocaine HCl 0.1 ml 12/12/21 11:14 [...] signed by Arleen Stephen MD> 12/12/21 1320 [facility] Work Phone: Progress note Author Teresa Strong [facility] December 12, 2021 8:43pm Note Date/Time December 12, 2021 2: 49pm [facility] [address] [place] [address] Urology Progress Note Signed Patient: Taye Gay MR#: [id number] : 1955 Acct:[id number] Age/Sex: 66 / F Adm Date: 2 Loc: Room: [address] [place] [address] Type: ADM INOo Attending Dr: Arleen Stephen [...] % (Auto) 72.7, Lymph % (Auto) 16.1, [place] % (Auto) 8.8, Eos % (Auto) 2.1, Baso % (Auto) 0.3, Neut # (Auto) 5.3, Lymph # (Auto) 1.2, [place] # (Auto) 0.6, Eos# (Auto) 0.2, Baso [...] % (Auto) 66.8, Lymph % (Auto) 21.0, [place] % (Auto) 9.2, Eos % (Auto) 2.6, Baso % (Auto) 0.4, Neut # (Auto) 4.1, Lymph # (Auto) 1.3, [place] # (Auto) 0.6, Eos # (Auto) 0.2, [...] <Electronically signed by Teresa Strong MD> 12/12/212042 [facility] Work Phone: Progress note Author Walter Montgomery [facility] December 13, 2021 8:52am Note Date/Time December 13, 2021 8: 52am [facility] [address] [place] [address] General Surgery Progress Note Signed Patient: Taye Gay MR#: [id number] : 1955 Acct:[id number] Age/Sex: 66 / F Adm Date: 2 Loc: Room: [address] [place] [address] Type: ADM INOo Attending Dr: Wilmer Vance [...] insulin lispro 100 unit/mL subcutaneous pen ([facility] Insulin lispro) 1 sliding [...] Stop: 12/09/22 11:18 Aspirin (Aspirin 81 Mg Tablet) 81 mg PO DAILY [facility] Stop: 12/10/22 08:59 Last Admin: 12/12/21 10:33 Dose: Not Given Atorvastatin Calcium (Atorvastatin 10 Mg Tablet) 10 mg PO DAILY [facility] Stop: 12/10/22 08:59 Last Admin: 12/12/21 10:33 Dose: Not Given Cyanocobalamin (Cyanocobalamin 1,000 Mcg Tablet) 1,000 mcg PO DAILY [facility] Stop: 12/13/22 08:59 Dextrose (Dextrose 50% In Water 25 Gm/50 Ml Syringe) 0 gm IV-PUSH PRN PRN PRN Reason: Hypoglycemia Stop: 12/09/22 11:18 Docusate Sodium (Docusate 100 Mg Capsule) 100 mg PO TID [facility] Stop: 12/12/22 21:59 Last Admin: 12/12/21 [...] 50 mls @ 100 mls/hr IV Q24H [facility] Last Admin: 12/12/21 11:57 Dose: 100 mls/hr Sodium Chloride (0.9% Sodium Chloride 1,000 Ml) 1,000 mls @ 100 mls/hr IV .[id number] Stop: 12/12/22 00:00 Last Infusion: 12/13/21 03:35 Dose: Infused Lactated Ringer's (Lactated Ringers) 1,000 mls @ 20 mls/hr IV .Q24H ONE Stop: 12/13/21 11:13 Last Infusion: 12/13/21 03:31 Dose: Infused Insulin Aspart (Insulin Aspart 300 Units/3 Ml Insuln.Pen) 0 units SUBCUT TID..[facility]; Protocol Stop: 12/09/22 11:59 Last Admin: 12/13/21 08:07 Dose: 4 units Nortriptyline HCl (Nortriptyline 25 Mg Capsule) 50 mg PO BID [facility] Stop: 12/09/22 20:59 Last Admin: 12/12/21 22:27 Dose: 50 mg Omeprazole (Omeprazole 20 Mg Capsule.Dr) 20 mg PO DAILY [facility] Stop: 12/10/22 08:59 Last Admin: 12/12/21 [...] 15 Mg Capsule) 30 mg PO QHS [facility] Stop: 12/09/22 21:59 Last Admin: 12/12/21 [...] % (Auto) 90.4, Lymph % (Auto) 7.7, [place] % (Auto) 1.8, Eos % (Auto) 0.0, Baso % (Auto) 0.1, Neut # (Auto) 8.5 H, Lymph # (Auto) 0.7 L, [place] # (Auto) 0.2, Eos # (Auto) 0.0, [...] % (Auto) 72.7, Lymph % (Auto) 16.1, [place] % (Auto) 8.8, Eos % (Auto) 2.1, Baso % (Auto) 0.3, Neut # (Auto) 5.3, Lymph # (Auto) 1.2, [place] # (Auto) 0.6, Eos# (Auto) 0.2, Baso [...] % (Auto) 66.8, Lymph % (Auto) 21.0, [place] % (Auto) 9.2, Eos % (Auto) 2.6, Baso % (Auto) 0.4, Neut # (Auto) 4.1, Lymph # (Auto) 1.3, [place] # (Auto) 0.6, Eos # (Auto) 0.2, [...] signed by DO Walter Montgomery> 12/13/21 0852 [facility] Work Phone: Progress note Author Priscilla Lang [facility] Note Date/Time April 29, 2024 11 :02am [facility] [address] [place] [address] Hospitalist Progress Note Signed Patient: Taye Gay MR#: [id number] : 1955 Acct:[id number] Age/Sex: 68 / F Adm Date: 4 Loc: Room: [address] [place] [address] Type: ADM IN Attending Dr: Priscilla Lang [...] of dementia, possible Alzheimer's dementia -continue home [id number] mg twice daily and donepezil 20 mg [...] signed by Priscilla Lang MD> 04/29/24 1108 [facility] Work Phone: Progress note Author Lit Clark [facility] Note Date/Time April 30, 2024 12 :30pm [facility] [address] [place] [address] Neurology Progress Note Signed with Addenda Patient: Taye Gay MR#: [id number] : 1955 Acct:[id number] Age/Sex: 68 / F Adm Date: 4 Loc: Room: [address] [place] [address] Type: ADM IN Attending Dr: Priscilla Lang MD Copies to: ~ ADDENDUM1 Patient has refused to remove her nail tongan for MRI. 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 Work Phone: Reason for referral (narrative)No reason for referral information [facility] Work Phone: reason for visit Narrative* Other Medical (Routine) - Closed Specialty Diagnoses / Procedures Referred By Conttommy t Referred To Contact Neurology Diagnoses Numbness Leg pain, left Leg pain, right Bilateral leg weakness Procedures EMG AND NERVE CONDUCTION STUDY Oz Kincaid MD [address] [place] [address] Phone: tel: fax: Oz Kincaid MD [address] [place] [address] Phone: tel: fax: Referral ID Status Reason Start Date Expiration Date V isits Requested Visits Authorized [id number] Closed Perform Procedure 10/06/2024 04/04/2025 1 1 [facility] Summary Purpose Family History No Family History [...] December 4:05pm Procedure Findings Note HNO ID: [id number] Author: Phi Joaquin Service: Gynecology Oncology Author Type: Physician Type: Brief Op Note Filed: 01/17/2019 7:15 PM Note Text: BRIEF OPERATIVE / PROCEDURE NOTE LOG ID: [id number] SURGERY/PROCEDURE DATE: 01/01/2019 INCISION/PROCEDURE START TIME: 8:11 AM INCISION CLOSE/PROCEDURE END TIME: 8:34 AM SURGEON(S)/PROCEDURALIST(S) AND OPERATOR COATING FURNACE(S): Surgeon(s) and Role: * Theo Joaquin - [...] 01, 2019 TIME: 8:39 AM PAGER/CONTACT #: [id number] Chief Complaint and Reason for Visit Chief Complaint right side pain Low R abd pain Reason for Visit Cholelithiasis Emphysematous cystitis Pyelonephritis Right lateral abdominal pain Chief Complaint g02.97 f17.210 Chief Complaint g02.97 f17.210 Z12.39 Chief Complaint E11.4 Z78.0 Chief Complaint 3 month follow up Reason for Visit BMI 28.0-28.9,adult [id number] Dietary counseling and surveillance Hyperlipidemia Hypertension Insulin long-term use Peripheral neuropathy Type 2 diabetes mellitus Vitamin B 12 deficiency Chief Complaint 3 month follow up PVD FOLLOW UP Reason for Visit BMI 28.0-28.9,adult [id number] Dietary counseling and surveillance Hyperlipidemia Hypertension Insulin long-term use Peripheral neuropathy Type 2 diabetes mellitus Vitamin B 12 deficiency Dizziness Hypertension Primary insomnia Type 2 diabetes mellitus Chief Complaint 3 month follow up PVD FOLLOW UP g02.97 f17.210 Reason for Visit BMI 28.0-28.9,adult [id number] Dietary counseling and surveillance Hyperlipidemia Hypertension Insulin long-term use Peripheral neuropathy Type 2 diabetes mellitus Vitamin B 12 deficiency Dizziness Hypertension Primary insomnia Type 2 diabetes mellitus PAD (peripheral artery disease) Chief Complaint 3 month follow up PVD FOLLOW UP g02.97 f17.210 E11.9 E78.5 E53.8 Reason for Visit BMI 28.0-28.9,adult [id number] Dietary counseling and surveillance Hyperlipidemia Hypertension Insulin long-term use Peripheral neuropathy Type 2 diabetes mellitus Vitamin B 12 deficiency Dizziness Hypertension Primary insomnia Type 2 diabetes mellitus PAD (peripheral artery disease) Chief Complaint PVD FOLLOW UP g02.97 f17.210 E11.9 E78.5 E53.8 Amb Documentation brent on phone chest pains chest pains Reason for Visit PAD (peripheral evert ry disease) BMI 28.0-28.9,adult [id number] Dietary counseling and surveillance Hyperlipidemia Hypertension Peripheral [...] PAD (peripheral evert ry disease) BMI 28.0-28.9,adult [id number] Dietary counseling and surveillance Hyperlipidemia Hypertension Peripheral [...] i70.91 d51.3 Reason for Visit BMI 28.0-28.9,adult [id number] Dietary counseling and surveillance Hyperlipidemia Hypertension Peripheral [...] d51.3 aflutter Reason for Visit BMI 28.0-28.9,adult [id number] Dietary counseling and surveillance Hyperlipidemia Hypertension Peripheral [...] Falls, Shaky Reason for Visit BMI 28.0-28.9,adult [id number] Dietary counseling and surveillance Hyperlipidemia Hypertension Peripheral [...] Falls, Shaky Reason for Visit BMI 28.0-28.9,adult [id number] Dietary counseling and surveillance Hyperlipidemia Hypertension Peripheral [...] on phone Reason for Visit BMI 28.0-28.9,adult [id number] Dietary counseling and surveillance Hyperlipidemia Hypertension Peripheral [...] Vitamin B 12 deficiency Weakness BMI 28.0-28.9,adult [id number] Dietary counseling and surveillance Hyperlipidemia Hypertension Peripheral neuropathy Type 2 diabetes mellitus Vitamin B 12 deficiency Chief Complaint E11.9 E78.5 E53.8 Amb Documentation brent on phone chest pains chest pains Amb Documentation Hospital follow up g72.9 g62.9 r79.89 g60.9 z11.3 e53.1 i70.91 d51.3 aflutter Multiple Falls, Shaky Amb Documentation brent on phone typical a flutter Reason for Visit BMI 28.0-28.9,adult [id number] Dietary counseling and surveillance Hyperlipidemia Hypertension Peripheral [...] Weakness Abnormal thyroid blood test BMI 28.0-28.9,adult [id number] Dietary counseling and surveillance Hyperlipidemia Hypertension Peripheral neuropathy Type 2 diabetes mellitus Vitamin B 12 deficiency Chief Complaint E11.9 E78.5 E53.8 Amb Documentation brent on phone chest pains chest pains Amb Documentation Hospital follow up g72.9 g62.9 r79.89 g60.9 z11.3 e53.1 i70.91 d51.3 aflutter Multiple Falls, Shaky Amb Documentation brent on phone typical a flutter typical a flutter [facility] follow up Reason for Visit BMI 28.0-28.9,adult [id number] Dietary counseling and surveillance Hyperlipidemia Hypertension Peripheral [...] Weakness Abnormal thyroid blood test BMI 28.0-28.9,adult [id number] Dietary counseling and surveillance Hyperlipidemia Hypertension Peripheral [...] a flutter typical a flutter [facility] follow up G62.9 G60.9 R79.89 Z11.3 E53.1 I70.31 D51.3 Reason for Visit BMI 28.0-28.9,adult [id number] Dietary counseling and surveillance Hyperlipidemia Hypertension Peripheral [...] Weakness Abnormal thyroid blood test BMI 28.0-28.9,adult [id number] Dietary counseling and surveillance Hyperlipidemia Hypertension Peripheral [...] a flutter typical a flutter [facility] follow up G62.9 G60.9 R79.89 Z11.3 E53.1 I70.31 D51.3 g62.9 r79.89 g60.9 z11.3 e53.1 d51.3 Reason for Visit BMI 28.0-28.9,adult [id number] Dietary counseling and surveillance Hyperlipidemia Hypertension Peripheral [...] Weakness Abnormal thyroid blood test BMI 28.0-28.9,adult [id number] Dietary counseling and surveillance Hyperlipidemia Hypertension Peripheral neuropathy Type 2 diabetes mellitus Vitamin B 12 deficiency Hospital discharge follow-up Hypomagnesemia Chief Complaint g72.9 g62.9 r79.89 g 60.9 z11.3 e53.1 i70.91 d51.3 aflutter Multiple Falls, Shaky Amb Documentation brent on phone typical a flutter typical a flutter [facility] follow up G62.9 G60.9 R79.89 Z11.3 E53.1 I70.31 D51.3 g62.9 r79.89 g60.9 z11.3 e53.1 d51.3 M54.17 Reason for Visit Ambulatory dysfuncti on Hypomagnesemia Hypothyroid Type 2 diabetes mellitus with hyperglycemia Vitamin B 12 deficiency Weakness Abnormal thyroid blood test BMI 28.0-28.9,adult [id number] Dietary counseling and surveillance Hyperlipidemia Hypertension Peripheral neuropathy Type 2 diabetes mellitus Vitamin B 12 deficiency Hospital discharge follow-up Hypomagnesemia Chief Complaint g72.9 g62.9 r79.89 g 60.9 z11.3 e53.1 i70.91 d51.3 aflutter Multiple Falls, Shaky Amb Documentation brent on phone typical a flutter typical a flutter [facility] follow up G62.9 G60.9 R79.89 Z11.3 E53.1 I70.31 D51.3 g62.9 r79.89 g60.9 z11.3 e53.1 d51.3 M54.17 R60.0 M79.671 r/o dvt Reason for Visit Ambulatory dysfuncti on Hypomagnesemia Hypothyroid Type 2 diabetes mellitus with hyperglycemia Vitamin B 12 deficiency Weakness Abnormal thyroid blood test BMI 28.0-28.9,adult [id number] Dietary counseling and surveillance Hyperlipidemia Hypertension Peripheral neuropathy Type 2 diabetes mellitus Vitamin B 12 deficiency Hospital discharge follow-up Hypomagnesemia Chief Complaint g72.9 g62.9 r79.89 g 60.9 z11.3 e53.1 i70.91 d51.3 aflutter Multiple Falls, Shaky Amb Documentation brent on phone typical a flutter typical a flutter [facility] follow up G62.9 G60.9 R79.89 Z11.3 E53.1 I70.31 D51.3 g62.9 r79.89 g60.9 z11.3 e53.1 d51.3 M54.17 R60.0 M79.671 r/o dvt L97.511 L03.115 lumbosacral radiculopathy at s1 Reason for Visit Ambulatory dysfuncti on Hypomagnesemia Hypothyroid Type 2 diabetes mellitus with hyperglycemia Vitamin B 12 deficiency Weakness Abnormal thyroid blood test BMI 28.0-28.9,adult [id number] Dietary counseling and surveillance Hyperlipidemia Hypertension Peripheral neuropathy Type 2 diabetes mellitus Vitamin B 12 deficiency Hospital discharge follow-up Hypomagnesemia Chief Complaint aflutter Multiple Falls, Shaky Amb Documentation brent on phone typical a flutter typical a flutter [facility] follow up G62.9 G60.9 R79.89 Z11.3 E53.1 I70.31 D51.3 g62.9 r79.89 g60.9 z11.3 e53.1 d51.3 M54.17 R60.0 M79.671 r/o dvt L97.511 L03.115 lumbosacral radiculopathy at s1 8 Month F/U Reason for Visit Ambulatory dysfuncti on Hypomagnesemia Hypothyroid Type 2 diabetes mellitus with hyperglycemia Vitamin B 12 deficiency Weakness Abnormal thyroid blood test BMI 28.0-28.9,adult [id number] Dietary counseling and surveillance Hyperlipidemia Hypertension Peripheral [...] 2024 11:14am Dietary counseling and surveillance [facility] 2023 11:14am Hyperlipidemia April 28, 2024 11:14am [...] 2024 11:14am Dietary counseling and surveillance [facility] 2023 11:14am Hyperlipidemia April 28, 2024 11:14am Hypertension April 28, 2024 11:14am Peripheral neuropathy April 28 11:14am Type 2 diabetes mellitus April 28, 2024 11:14am Vitamin B 12 deficiency April 28 024 11:14am Atrial fibrillation April 28, 2024 10:38pm Generalized weakness April 28, 2024 10:38pm Insulin dependent diabetes mellitus [facility] 2023 10:38pm TIA (transient ischemic attack) April 28, 2024 10:38pm Chief Complaint Admit Date Screening, Dysphagia February 14, 2024 12:30pm NEW elevated WBC April 14, 2024 9:30am irregular heart beat, dizziness, weaknes s April 27, 2024 2:18pm Follow Up 2 Weeks April 28, 2024 9:53am brent on phone April 28, 2024 11:14am Weakness April 28, 2024 10:38pm [facility] FOLLOW UP May 07 1:02pm Reason for Visit Admit Date High granulocyte count April 14 9:30am Secondary polycythemia April 14 9:30am High granulocyte count April 28 9:53am Secondary polycythemia April 28 9:53am BMI 32.0-32.9,adult April 28, 2024 11:14am Chronic kidney disease (CKD) stage G2/A2, mildly decreased glomerular filtr April 28, 2024 11:14am Dietary counseling and surveillance [facility] 2023 11:14am Hyperlipidemia April 28, 2024 11:14am Hypertension April 28, 2024 11:14am Peripheral neuropathy April 28 11:14am Type 2 diabetes mellitus April 28, 2024 11:14am Vitamin B 12 deficiency April 28 11:14am Atrial fibrillation April 28, 2024 10:38pm Generalized weakness April 28, 2024 10:38pm Insulin dependent diabetes mellitus [facility] 2023 10:38pm TIA (transient ischemic attack) April 28, 2024 10:38pm Cigarette nicotine dependence April 1:02pm Chief Complaint Admit Date NEW elevated WBC April 14, 2024 9:30am irregular heart beat, dizziness, weaknes s April 27, 2024 2:18pm Follow Up 2 Weeks April 28, 2024 9:53am brent on phone April 28, 2024 11:14am Weakness April 28, 2024 10:38pm [facility] FOLLOW UP May 07 1:02pm G45.9 [...] 2024 11:14am Dietary counseling and surveillance [facility] 2023 11:14am Hyperlipidemia April 28, 2024 11:14am Hypertension April 28, 2024 11:14am Peripheral neuropathy April 28 11:14am Type 2 diabetes mellitus April 28, 2024 11:14am Vitamin B 12 deficiency April 28, 024 11:14am Atrial fibrillation April 28, 2024 10:38pm Generalized weakness April 28, 2024 10:38pm Insulin dependent diabetes mellitus [facility] 2023 10:38pm TIA (transient ischemic attack) April [...] Weakness April 28, 2024 10:38pm [facility] FOLLOW UP May 07 1:02pm G45.9 [...] Weakness April 28, 2024 10:38pm [facility] FOLLOW UP May 07 1:02pm G45.9 [...] Weakness April 28, 2024 10:38pm [facility] FOLLOW UP May 07 1:02pm G45.9 [...] 2024 11:14am Dietary counseling and surveillance [facility] 2023 11:14am Hyperlipidemia April 28, 2024 11:14am Hypertension April 28, 2024 11:14am Peripheral neuropathy April 28 11:14am Type 2 diabetes mellitus April 28, 2024 11:14am Vitamin B 12 deficiency April 28, 024 11:14am Atrial fibrillation April 28, 2024 10:38pm Generalized weakness April 28, 2024 10:38pm Insulin dependent diabetes mellitus [facility] 2023 10:38pm TIA (transient ischemic attack) April [...] 2024 11:14am Dietary counseling and surveillance [facility] 2023 11:14am Hyperlipidemia April 28, 2024 11:14am Hypertension April 28, 2024 11:14am Peripheral neuropathy April 28 11:14am Type 2 diabetes mellitus April 28, 2024 11:14am Vitamin B 12 deficiency April 28, 024 11:14am Atrial fibrillation April 28, 2024 10:38pm Generalized weakness April 28, 2024 10:38pm Insulin dependent diabetes mellitus [facility] 2023 10:38pm TIA (transient ischemic attack) April [...] Secondary polycythemia October 01, 2024 2: 34pm Chief Complaint Admit Date G47.33 October 01, 2024 2:34p m L97.512 November 16, 2024 4:48 pm establish December 15, 2024 1: 46pm Reason for Visit Admit Date Atrial fibrillation October 01, 2024 2:34p m Cardiomyopathy October 01, 2024 2:34p m Congestive heart failure October 01, 2024 2:34pm Daytime sleepiness October 01, 2024 2:34p m Hypertension October 01, 2024 2:34p m Hypothyroid October 01, 2024 2:34p m Intolerance to BiPAP/CPAP October 01, 2024 2:34pm Major depression, chronic October 01, 2024 2:34pm [facility] (obstructive sleep apnea) Anjali 5th, 2025 2:34pm Secondary polycythemia October 01, 2024 2: 34pm Allergy to honey bee venom December 15, 2024 1:46pm Depression December 15, 2024 1: 46pm Reason for Referral Specialty Diagnoses / Procedures Referred By Contac t Referred To Contact Diagnoses Typical atrial flutter (Multi) Procedures ECG 12 Lead Jonas Ch MD [address] [facility] 2, [place] [address] [place] [address] Referral ID Status Reason Start Date Expiration Date V isits Requested Visits Authorized [id number] Authorized 11/13/2023 11/12/2024 1 1 Specialty Diagnoses / Procedures Referred By Contac t Referred To Contact Diagnoses Typical atrial flutter (Multi) Procedures Complete Pulmonary Function Test (Spirometry/DLCO/Lung Volumes) Jonas Ch MD [address] [facility] 2, [place] [address] [place] [address] Referral ID Status Reason Start Date Expiration Date V isits Requested Visits Authorized [id number] Pending Review 11/13/2023 11/12/2024 1 1 Specialty Diagnoses / Procedures Referred By Contac t Referred To Contact Radiology Diagnoses Typical atrial flutter (Multi) Procedures XR chest 2 views Jonas Ch MD [address] [place] [address] [address], [address] [address] Referral ID Status Reason Start Date Expiration Date Visits Requested Visits Authorized [id number] Authorized Perform Procedure 11/13/2023 11/12/2024 1 1 Specialty Diagnoses / Procedures Referred By Contac t Referred To Contact Cardiology Diagnoses Nonischemic cardiomyopathy (Multi) Procedures Follow Up In Cardiology Jonas Ch MD [address] [facility] 2, [address] [address] Thuan Wise MD [address] [facility] 2, [place] [address] [place] [address] Referral ID Status Reason Start Date Expiration Date V isits Requested Visits Authorized [id number] Authorized 11/13/2023 11/12/2024 1 1 Specialty Diagnoses / Procedures Referred By Contac t Referred To Contact Cardiology Diagnoses Typical atrial flutter (Multi) Procedures Cardioversion External Jonas Ch MD [address] [facility] 2, [address] [place] [address] Referral ID Status Reason Start Date Expiration Date V isits Requested Visits Authorized [id number] Pending Review 10/07/2023 10/06/2024 1 1 Specialty Diagnoses / Procedures Referred By Contac t Referred To Contact Cardiology Diagnoses Typical atrial flutter (Multi) Procedures Follow Up In Cardiology Jonas Ch MD [address] [facility] 2, [address] [place] [address] Jonas Ch MD [address] [facility] 2, [address] [place] [address] Referral ID Status Reason Start Date Expiration Date V isits Requested Visits Authorized [id number] Authorized 10/07/2023 10/06/2024 1 1 Reason LEFT FOOT INJURY Diagnosis 1 Type 2 diabetes ye itus with hyperglycemia (E11.65) Diagnosis 2 Injury of foot, left (S99.922A) Referral Organization [facility] Referring Provider First Name Angelique Referring Provider Last Name Yvonne Referring Provider Specialty Nurse Pract itioner Referred Organization [facility] Referred Provider Karl Fritz Referred Address ,[place], [place],[address] Referred Provider Specialty Podiatry - S urgical Chiropody Referral Priority Routine Referral Appointment Date 2023-01-09 General Notes Emerald Doshi 12/28 03:26:20 PM >SCHEDULED FOR 01/09/23 AT 10:15AM. PATIENT INFORMED. Additional Source Comments INFORMATION SOURCE (unrecogn ized section and content) DATE CREATED AUTHOR 10/21/2017 [facility] DATE CREATED AUTHOR AUTHOR'S ORGANIZ ATION 10/22/2017 [facility] DATE CREATED AUTHOR AUTHOR'S ORGANIZ ATION 02/16/2019 [facility] DATE CREATED AUTHOR AUTHOR'S ORGANIZ ATION 02/02/2022 [facility] DATE CREATED AUTHOR AUTHOR'S ORGANIZ ATION 06/28/2024 [facility] DATE CREATED AUTHOR AUTHOR'S ORGANIZ ATION 11/16/2024 [facility] DATE CREATED AUTHOR AUTHOR'S ORGANIZ ATION 12/13/2024 [facility] EPIC DATE CREATED AUTHOR AUTHOR'S ORGANIZ ATION 12/16/2024 [facility] REASON FOR VISIT (unrecogniz ed section and content) Reason Comments Hospital Follow-up [facility] 09/14/23 Reason Comments Peripheral Neuropathy Reason Comments Blood Pressure Check With ekg Specialty Diagnoses / Procedures Referred By Tahmina thurston Referred To Contact Cardiology Diagnoses Hypertension, unspecified type Procedures Follow Up In Cardiology Thuan Wise MD [address] [place] [address], [address] [address] Phone: tel: fax: Thuan Wise MD [address] [place] [address], [address] [address] Phone: tel: fax: Referral ID Status Reason Start Date Expiration Date V isits Requested Visits Authorized [id number] Authorized 03/09/2024 03/09/2025 1 1 Reason Comments Follow-up [facility] follow up Specialty Diagnoses / Procedures Referred By Tahmina thurston Referred To Contact Cardiology Diagnoses Typical atrial flutter (Multi) Procedures Follow Up In Cardiology Jonas Ch MD [address] [place], [place] [address]er [facility] 2, [address] [address] Jonas Ch MD [address] [place] [address] 2, [address] [address] Referral ID Status Reason Start Date Expiration Date V isits Requested Visits Authorized [id number] Authorized 10/07/2023 10/06/2024 1 1 Reason Comments cognitive decline Reason Comments Follow-up Medication change, A sherman d/c Specialty Diagnoses / Procedures Referred By Tahmina t Referred To Contact Cardiology Diagnoses Typical atrial flutter (Multi) Procedures Follow Up In Cardiology Thuan Wise MD [address] [place] [address], [address] [address] Thuan Wise MD [address] [place] [address], [place] [phone] Referral ID Status Reason Start Date Expiration Date V isits Requested Visits Authorized [id number] Authorized 11/28/2023 11/27/2024 1 1 Specialty Diagnoses / Procedures Referred By Contac t Referred To Contact Neurology Diagnoses Carpal tunnel syndrome, bilateral upper limbs Procedures IN INJECTION THERAPEUTIC CARPAL TUNNEL IN KETOROLAC TROMETHAMINE INJ 1 CC STERILE SYRINGE&NEEDLE Oz Kincaid MD [address] [place] [phone] Oz Kincaid MD [address] [place] [phone] Referral ID Status Reason Start Date Expiration Date V isits Requested Visits Authorized [id number] Closed Perform Procedure 12/16/2023 06/13/2024 1 1 Reason Comments Follow-up 4 month with EKG. Pt denies c/o at this time. Specialty Diagnoses / Procedures Referred By Tahmina t Referred To Contact Cardiology Diagnoses Nonischemic cardiomyopathy (Multi) Procedures Follow Up In Cardiology Jonas Ch MD Traboulssi, Mourhaf, MD [address] [place], [place] [id number] Phone: tel: fax: Referral ID Status Reason Start Date Expiration Date V isits Requested Visits Authorized [id number] Pending Review 11/13/2023 11/12/2024 1 1 Reason [...] July 22, 2024 End: July 22, 2024 EDVIN GarcíaC Attending Provider Active Start: July 22, 2024 [...] Dates Jonas Yoder DO Primary Care Provider Acti ve Falguni [...] 17, 2023 End: July 17, 2023 Tray Naav MD Attending Provider Active Start: July 17, [...] End: September 14, 2023 Elizabeth Parra , [facility] Other Provider Active Sta rt: September 13, [...] Start: M ay 2023 Elizabeth Parra , [facility] Other Provider Active Sta rt: September 14, [...] September 17, 2023 End: September 17, 2023 Negative Stripper Relationship Specialty Start Date End Date Sandra Keita DO [address] [place] [address] PCP - General Family Medicine 09/25/23 Team [...] End: September 14, 2023 W Tuan Yoo , Other Provider Active Start : September 14, [...] End: September 14, 2023 Elizabeth Parra , [facility]- Other Provider Active Sta rt: September [...] Provider Active Start: November 10, 2023 Rl M Tupa , DO Emergency Provider Active St art: November 10, 2023 Jluis Cmapos , DO Admit Provider, Attending Provider Active Start: November 10, 2023 Team Status: Inactive Member Role Status Dates Sandra Keita DO Primary Care Provider Active Start: November 10, 2023 End: November 12, 2023 Rl Villavicencio , DO Emergency Provider Active St art: November [...] End: November 12, 2023 Tayler Medina , [employer] MAINTENANCE REPAIRER-C Other Provider Active Sta rt: November 10, 2023 End: November 12, 2023 Jeanine Ibrahim APRN-[employer]ITNESS SALES CONSULTANT-C Other Provider Active Start: November 10, 2023 [...] 2024 Team Status: Inactive Member Role Status Marco A Fritz DPM Attending Provider Active Start: January 07, 2024 End: January 07, 2024 Team Status: Inactive Member Role Status Dates Edgar Eden DO Attending Provider Active S tart: January 15, 2024 End: January 15, 2024 Sandra Keita DO Primary Care Provider Active Start: January 15, 2024 End: January 15, 2024 Negative Stripper Relationship Specialty Start Date End Date Sandra Keita DO [address] [facility] [place] [address] PCP - General Family Medicine 01/09/23 Team Status: Inactive Member Role Status Dates Sandra Keita DO Primary Care Provide rBradford Provider Active Start: February 03, 2024 End: February 03, 2024 Negative Stripper Relationship Specialty Start Date End Date Sandra Keita DO [address] [facility] [place] [address] PCP - General Family Medicine 01/09/23 Negative Stripper Relationship Specialty Start Date End Date Sandra Keita DO [address] [facility] [place] [address] PCP - General Family Medicine 01/09/23 Negative Stripper Relationship Specialty Start Date End Date Sandra Keita DO [address] [facility] [place] [address] PCP - General Family Medicine 01/09/23 Negative Stripper Relationship Specialty Start Date End Date Sandra Keita DO [address] [facility] [place] [address] PCP - General Family Medicine 01/09/23 Negative Stripper Relationship Specialty Start Date End Date Sandra Keita DO [address] [place] [address] PCP - General Family Medicine 09/25/23 Negative Stripper Relationship Specialty Start Date End Date Sandra Keita DO [address] [place] [address] PCP - General Family Medicine 01/09/23 Negative Stripper Relationship Specialty Start Date End Date Sandra Keita DO [address] [place] [address] PCP - General Family Medicine 01/09/23 Negative Stripper Relationship Specialty Start Date End Date KeitaMagdalenaDO rebecca [address] [place] [address] PCP - General Family Medicine 01/09/23 Negative Stripper Relationship Specialty Start Date End Date Sandra Keita RebeccaDO [address] [place] [address] PCP - General Family Medicine 09/25/23 Negative Stripper Relationship Specialty Start Date End Date Sandra Keita DO [address] [place] [address] PCP - General Family Medicine 01/09/23 Negative Stripper Relationship Specialty Start Date End Date Magdalena KeitaaDO [address] [place] [address] PCP - General Family Medicine 01/09/23 Negative Stripper Relationship Specialty Start Date End Date Sandra Keita DO [address] [place] [address] PCP - General Family Medicine 09/25/23 Negative Stripper Relationship Specialty Start Date End Date Sandra Keita DO [address] [place] [phone] PCP - General Family Medicine 01/09/23 Negative Stripper Relationship Specialty Start Date End Date Sandra Keita DO [address] [place] [address] PCP - General Family Medicine 01/09/23 Negative Stripper Relationship Specialty Start Date End Date Sandra Keita DO [address] [place] [address] PCP - General Family Medicine 01/09/23 Negative Stripper Relationship Specialty Start Date End Date Sandra Keita DO [address] [place] [address] PCP - General Family Medicine 01/09/23 Negative Stripper Relationship Specialty Start Date End Date Sandra Keita DO [address] [place] [address] PCP - General Family Medicine 01/09/23 Negative Stripper Relationship Specialty Start Date End Date Sandra Keita DO [address] [place] [address] PCP - General Family Medicine 01/09/23 Negative Stripper Relationship Specialty Start Date End Date Sandra Keita DO [address] [place] [address] PCP - General [facility] Medicine 01/09/23 Negative Stripper Relationship Specialty Start Date End Date Sandra Keita DO [address] [place] [address] PCP - General [facility] Medicine 01/09/23 Negative Stripper Relationship Specialty Start Date End Date Sandra Keita DO [address] [place] [address] PCP - General [facility] Medicine 01/09/23 Team Status: Inactive Member Role [...] May 25, 2024 End: May 25, 2024 Negative Stripper Relationship Specialty Start Date End Date Sandra Keita DO [address] [facility] [place] [address] PCP - General Family Medicine 09/25/23 Team Status: Inactive Member Role Status Dates Sandra Keita DO Primary Care Provider Active Start: April 28, 2024 End: April 28, 2024 Nataliya Jane APRN Attending Provider Active Start: March End: April 28, 2024 Negative Stripper Relationship Specialty Start Date End Date Sandra Ketia DO [address] [facility] [place] [address] PCP - General Family Medicine 01/09/23 Team [...] October 01, 2024 End: October 01, 2024 Negative Stripper Relationship Specialty Start Date End Date Sandra Keita DO PCP - General Family Medicine 01/09/23 Negative Stripper Relationship Specialty Start Date End Date Sandra Keita DO PCP - General Family Medicine 01/09/23 Negative Stripper Relationship Specialty Start Date End Date Sandra Keita DO PCP - General Family Medicine 01/09/23 Negative Stripper Relationship Specialty Start Date End Date KeitaMagdalenarebecca [address] [facility] [place] [address] PCP - General Family Medicine 10/15/24 Negative Stripper Relationship Specialty Start Date End Date Sandra Keita DO [address] [place] [address] PCP - General Family Medicine 10/15/24 Negative Stripper Relationship Specialty Start Date End Date Sandra Keita DO [address] [place] [address] PCP - General Family Medicine 10/15/24 Negative Stripper Relationship Specialty Start Date End Date Sandra Keita DO [address] [facility] [place] [address] PCP - General Family Medicine 10/15/24 Team Status: Inactive Member Role [...] November 16, 2024 End: November 16, 2024 Negative Stripper Relationship Specialty Start Date End Date Sandra Keita DO [address] [place] [address] PCP - General Family Medicine 10/15/24 Negative Stripper Relationship Specialty Start Date End Date Sandra Keita DO [address] [facility] [place] [address] PCP - General Family Medicine 10/15/24 Team Status: Active Member Role Status Dates Shantel Norton APRN INDUSTRIAL MAINTENANCE REPAIRER-Vamsi Primary Care Provider Active Team Status: Inactive Member Role Status Dates Shantel Norton APRN INDUSTRIAL MAINTENANCE REPAIRERHernandoC Primary Care Provider Active Start: December 15, 2024 End: December 15, 2024 Shantel Norton APRN INDUSTRIAL MAINTENANCE REPAIRER-Vamsi Attending Provider Act abdifatah Start: December 15, 2024 End: December 15, 2024 Goals (unrecognized section and content) Goals [...] BE BASED ON THE PRIMARY CLINICAL RECORDS. [employer] provides no warranty or guarantee of the accuracy or completeness of information in this document.
== END 2024-12-16 10:26 | disposition home or self-care (01) ==
LOC: WC 10:26
PROVIDERS: Family Provider Family Medicine; PCP Family Medicine; Visit Provider Podiatrist Foot & Ankle Surgery
DX: E11.621 Type 2 diabetes mellitus with foot ulcer (principal); L97.415 Non-pressure chronic ulcer of right heel and midfoot with muscle involvement without evidence of necrosis; L97.411 Non-pressure chronic ulcer of right heel and midfoot limited to breakdown of skin
CPT/HCPCS: 11042

== ENCOUNTER 2025-01-13 10:12 | Outpatient (OUT) | payer MEDICARE, MEDICAID, SELFPAY ==
--- OUTSIDE RECORDS SUMMARY | 2015-08-21 20:00 | XMS_ITS | Continuity of Care Document ---
Author Organization [facility] Address [address] [place] [address] Phone Care Team Providers Care Nail Welter Name Role Phone Bridget VARGAS, Margarita Unavailable [...] Diagnoses Date Provider Providers Copied on Encounter [facility], [address] [place], [place], [address] , tel:[phone] [facility] - OP No Information 6 Bridget Avila. [address] [facility] Physician Office [place], [place], [address], [place]. tel:[phone] Referring Provider: Margarita Gutierrez, [address] [facility] Physician Office Building, [place], [address] . tel:[phone] [facility], [address] [place], [place], [address] , tel:[phone] [facility] - OP Shortness of breathChest pain, unspecifiedDizzines s and giddiness 6 Susie Del Toro. [address] [facility] Physicians Office [place], [place], [address], [place]. tel:[phone] Referring Provider: Margarita Gutierrez, [address] [facility] Physician Office Building, [place], [address] . tel:[phone] [facility], [address] [facility], [place], [place], [address] , tel:[phone] [facility] - OP Shortness of breathChest pain, unspecifiedDizzines s and giddiness Apr-0 6-201 6 Jean Pierre-Marietta Blackwell. [address] [facility] Physicians Office Building, [place], [place], [facility], . tel:[phone] Referring Provider: Margarita Gutierrez, [address] [facility] Physician Office Building, [place], [address] . tel:[phone] Family History Family Member Type Diagnosis Age At Onset No Information Payers Payer name Insurance type Covered green party ID Jeremiah espinoza(link) Yoana [id number] Social History Type Description Quantity Date Captured [...]
--- OUTSIDE RECORDS SUMMARY | 2015-08-31 07:55 | XMS_ITS | Continuity of Care Document ---
Author Organization [facility] Address [address] [place] [address] Phone Care Team Providers Care Records Management Coordinator Name Role Phone Newton Segura MD Unavailable [...] Diagnoses Date Provider Providers Copied on Encounter [facility], [address] [place] [address], [id number], tel:[phone] [facility] No Information 6 Colton Glez. [address] [facility] Physician Office Building, [place], [place], [id number], . tel:[phone] OFFICE/OUTPAT IENT VISIT, [facility] Physician [facility], [address] [place] [address], [id number], [place] tel:[phone] [facility] Hyperlipidemia , unspecified hyperlipidemia typeObesity, unspecified obesity severity, unspecified obesity typeShortness of breathEssentia l hypertension, hypertension with unspecified goal 6 Georgia Mastersi. [address] [place] [address], [place], [place], [id number], [place]. tel:[phone] OFFICE CONSULTATION [facility] Physician [facility], [address] [place] [address], [id number], [place] tel:[phone] [facility] Shortness of breathEssentia l hypertension, hypertension with unspecified goalHyperlipid emia LDL goal <100Diabetes mellitus type II, non insulin dependent Jun- 6 Bridget Avila. [address] [facility] Physician Office Building, [place], [place], [id number], [place]. tel:[phone] Referring Provider: Sadie Fritz NP, [facility] Maninder Saldivar, [place], [address]. tel:[phone] [facility] Physician [facility], [address] [place] [address], [id number], [place] tel:[phone] [facility] No Information 6 Bridget Avila. [address] [facility] Physician Office Building, [place], [place], [id number], [place]. tel:[phone] OFFICE/OUTPAT IENT VISIT, [facility], [address] [place] [address], [id number], [place] tel:[phone] [facility] Obesity, Morbid (chief complaint) Body mass index (BMI) 33.0-33.9, adult 7201 5 tSeve Bishop. [address] [facility] Physician Office Building, [place], [place], [id number], [place]. tel:[phone] Family History Family Member Type Diagnosis Age At Onset Sister Problem (finding) no hx of CAD Mother Problem (finding) CHF and HTN Brother Problem (finding) Alive and well Sister Problem (finding) 64 Father Problem (finding) [place] with hx of cabg (Cau se Of ) 79 Sister Problem (finding) myocardial inf arct in first degree female relative less than 65 years of age (Cause Of ) 64 Father Problem (finding) Brother Problem (finding) No hx of CAD Payers Payer name Insurance type Covered alliance party ID Jeremiah espinoza(rod Lees [id number] Social History Type Description Quantity Date Captured [...]
--- OUTSIDE RECORDS SUMMARY | 2020-07-25 11:15 | XMS_ITS | Continuity of Care Document ---
Author Organization [facility] Address [address] [place] [address] Phone Care Team Providers Care Fruit Canner Name Role Phone John Morgan Unavailable Unavailable [...] CHIROPRACTIC MANIPULATION GLYCOSYLATED HEMOGLOBIN TEST OFFICE/OUTPATIENT VISIT, [facility] Advance Directives Directive Yes / No Effective Date File Name No Information Encounters Encounter Description Practice Location Reason(s) For Visit Diagnoses Date Provider Providers Copied on Encounter [facility], [address] [place] [address], [id number] , tel: [phone] [facility] cervical spine (chief complaint) cervical spine (chief complaint) Segmental and somatic dysfunction of cervical regionCervicalgiaSegm ental and somatic dysfunction of lumbar region 9- 1 Eddie Lopez. [address] [place] [address], [id number] , [place]. tel: [phone] [facility], [address] [place] [address], [id number] , tel: [phone] [facility] cervical spine (chief complaint) cervical spine (chief complaint) Segmental and somatic dysfunction of cervical regionCervicalgiaSegm ental and somatic dysfunction of lumbar region 0-201 9 Eddie Lopez. [address] [place] [address], [id number] , [place]. tel: [phone] [facility], [address] [place] [address], [id number] , [place] tel: [phone] [facility] cervical spine (chief complaint) cervical spine (chief complaint) Segmental and somatic dysfunction of cervical regionCervicalgiaSegm ental and somatic dysfunction of lumbar regionLow back pain Jul-0 9-201 9 Eddie Lopez. [address] [place] [address], [id number] , [place]. tel: [phone] [facility], [address] [place] [address], [id number] , [place] tel: [phone] [facility] cervical spine (chief complaint) cervical spine (chief complaint) Segmental and somatic dysfunction of cervical regionCervicalgiaSegm ental and somatic dysfunction of lumbar regionLow back pain 9 Eddie Lopez. [address], [place], [id number] , [place]. tel: [phone] [facility], [address], [place], [id number] , [place] tel: [phone] [facility] cervical spine (chief complaint) cervical spine (chief complaint) Segmental and somatic dysfunction of cervical regionCervicalgiaSegm ental and somatic dysfunction of lumbar regionLow back pain 9 Eddie Lopez. [address], [place], [id number] , [place]. tel: [phone] [facility], [address] [place] [address], [id number] , [place] tel: [phone] [facility] cervical spine (chief complaint) cervical spine (chief complaint) Segmental and somatic dysfunction of cervical regionCervicalgiaSegm ental and somatic dysfunction of lumbar region 8 Eddie Lopez. [address], [place], [id number] , [place]. tel: [phone] [facility], [address] [place] [address], [id number] , [place] tel: [phone] [facility] Spine Care (chief complaint) Segmental and somatic dysfunction of cervical regionCervicalgiaSegm ental and somatic dysfunction of lumbar region 8 Eddie Lopez. [address] [place] [address], [id number] , [place]. tel: [phone] [facility], [address] [place] [address], [id number] , [place] tel: [phone] [facility] Spine Care (chief complaint) Segmental and somatic dysfunction of cervical regionCervicalgiaSegm ental and somatic dysfunction of lumbar region 8 Eddie Lopez. [address], [place], [id number] , [place]. tel: [phone] [facility], [address] [place] [address], [id number] , [place] tel: [phone] [facility] Spine Care (chief complaint) Segmental and somatic dysfunction of cervical regionCervicalgiaSegm ental and somatic dysfunction of lumbar regionOther intervertebral disc degeneration, lumbar region May-0 8 Eddie Lopez. [address], [place], [id number] , [place]. tel: [phone] [facility], [address], [place], [id number] , [place] tel: [phone] [facility] Spine Care (chief complaint) Segmental and somatic dysfunction of lumbar regionLow back painOther intervertebral disc degeneration, lumbar regionSegmental and somatic dysfunction of cervical region Jul-2 0- 8 Eddie Lopez. [address], [place], [id number] , [place]. tel: [phone] [facility], [address] [place] [address], [id number] , [place] tel: [phone] [facility] Spine Care (chief complaint) Segmental and somatic dysfunction of lumbar regionLow back painOther intervertebral disc degeneration, lumbar regionSegmental and somatic dysfunction of cervical region Jun-2 8 Eddie Lopez. [address], [place], [id number] , [place]. tel: [phone] [facility], [address], [place], [id number] , [place] tel: [phone] [facility] Spine Care (chief complaint) Segmental and somatic dysfunction of lumbar regionLow back painOther intervertebral disc degeneration, lumbar regionSegmental and somatic dysfunction of cervical region Jun-2 2- 8 Eddie Lopez. [address], [place], [id number] , [place]. tel: [phone] [facility], [address], [place], [id number] , [place] tel: [phone] [facility] Spine Care (chief complaint) Segmental and somatic dysfunction of lumbar regionLow back painOther intervertebral disc degeneration, lumbar regionSegmental and somatic dysfunction of cervical region Jun- 9- 8 Eddie Lopez. [address], [place], [id number] , [place]. tel: [phone] [facility], [address], [place], [id number] , [place] tel: [phone] [facility] Spine Care (chief complaint) Segmental and somatic dysfunction of lumbar regionLow back painOther intervertebral disc degeneration, lumbar regionSegmental and somatic dysfunction of cervical region Jun-1 5-201 8 Eddie Lopez. [address], [place], [id number] , [place]. tel: [phone] [facility], [address], [place], [id number] , [place] tel: [phone] [facility] Spine Care (chief complaint) Segmental and somatic dysfunction of lumbar regionLow back painOther intervertebral disc degeneration, lumbar regionSegmental and somatic dysfunction of cervical region Jun-1 2-201 8 Eddie Lopez. [address] [place] [address], [id number] , [place]. tel: [phone] [facility], [address], [place], [id number] , [place] tel: [phone] [facility] Spine Care (chief complaint) Segmental and somatic dysfunction of lumbar regionLow back painOther intervertebral disc degeneration, lumbar regionSegmental and somatic dysfunction of cervical region Mar-0 8-201 8 Eddie Lopez. [address], [place], [id number] , [place]. tel: [phone] [facility], [address], [place], [id number] , [place] tel: [phone] [facility] Spine Care (chief complaint) Segmental and somatic dysfunction of lumbar regionLow back painOther intervertebral disc degeneration, lumbar regionSegmental and somatic dysfunction of cervical region Jun-0 5-201 8 Eddie Lopez. [address] [place] [address], [id number] , [place]. tel: [phone] [facility], [address] [place] [address], [id number] , [place] tel: [phone] [facility] Spine Care (chief complaint) Segmental and somatic dysfunction of lumbar regionLow back painOther intervertebral disc degeneration, lumbar regionSegmental and somatic dysfunction of cervical region Mar-0 1- 8 Eddie Lopez. [address], [place], [id number] , [place]. tel: [phone] [facility], [address], [place], [id number] , [place] tel: [phone] [facility] Spine Care (chief complaint) Segmental and somatic dysfunction of lumbar regionLow back painOther intervertebral disc degeneration, lumbar regionSegmental and somatic dysfunction of cervical region Feb-2 6- 8 Eddie Lopez. [address], [place], [id number] , [place]. tel: [phone] [facility], [address] [place] [address], [id number] , [place] tel: [phone] [facility] Spine Care (chief complaint) Segmental and somatic dysfunction of lumbar regionLow back painOther intervertebral disc degeneration, lumbar regionSegmental and somatic dysfunction of cervical region Feb-2 2- 8 Eddie Lopez. [address], [place], [id number] , [place]. tel: [phone] [facility], [address], [place], [id number] , [place] tel: [phone] [facility] Spine Care (chief complaint) Segmental and somatic dysfunction of lumbar regionLow back painOther intervertebral disc degeneration, lumbar regionSegmental and somatic dysfunction of cervical region Feb-2 0- 8 Eddie Lopez. [address], [place], [id number] , [place]. tel: [phone] [facility], [address], [place], [id number] , [place] tel: [phone] [facility] No Information Yan- 7 Eber Ramos. [address], [place], [id number] , [place]. tel: [phone] [facility], [address] [place] [address], [id number] , [place] tel:[phone] [facility] No Information 7 Eber Ramos. [address], [place], [id number] , [place]. tel: [phone] OFFICE/OUTPA TIENT VISIT, [facility], [address], [place], [id number] , [place] tel: [phone] [facility] est care (chief complaint) medication refill (chief complaint) Type 2 diabetes mellitus with hyperglycemiaType 2 DM with diabetic neuropathyInsomnia 7 Eber Ramos. [address] [place] [address], [id number] , [place]. tel: [phone] Family History Family Member Type Diagnosis Age [...] Of Treatment Date Type Action Status Goal Urine microalbumin. Due on due Goal Dental exam. Due on 021 due Goal Pneumococcal vaccine. Due on due [...] Jun due Goal Urine microalbumin. Due on O due Goal Pneumococcal vaccine. Due on due [...] eye exam. Due on Jul due Goal Urine microalbumin. Due on A due Goal Foot exam. Due on due [...] establish care, she recently moved back to [place] from [place]. She is here taking care of her mother. She was seeing Sadie Fritz METER CALIBRATOR in [place], states she just had blood work done beginning of June before moving here. A1C today 9.0. Patient states she does not currently have insurance since moving here from [place] and was unable to get her medications [...]
--- OUTSIDE RECORDS SUMMARY | 2024-12-30 13:40 | XMS_ITS | Encounter Summary ---
Author Organization [facility] Address [address] [place] [address] Phone Care Team Providers Care Closet Builder Name Role Phone Shantel Norton APRN-[employer] Primary Care Pro vider Reason for Referral * Consultation (Routine) - Authorized Specialty Diagnoses / Procedures Referred By Contac t Referred To Contact Cardiology Diagnoses Nonischemic cardiomyopathy (Multi) Procedures Follow Up In Cardiology Roland Faust MD [address] [place] [address], [place] [phone] Phone: tel: fax: Roland Faust MD [address] [place] [address], [address] [address] Phone: tel: fax: Referral ID Status Reason Start Date Expiration Date V isits Requested Visits Authorized [id number] Authorized 12/30/2024 12/30/2025 1 1 Reason for Visit * Reason Comments Follow-up 6 month, nonischemic cardiomyopathy * Consultation (Routine) - Authorized Specialty Diagnoses / Procedures Referred By Contac t Referred To Contact Cardiology Diagnoses Nonischemic cardiomyopathy (Multi) Procedures Follow Up In Cardiology Roland Faust MD [address] [place] [address] Phone: tel: fax: Referral ID Status Reason Start Date Expiration Date V isits Requested Visits Authorized [id number] Authorized 06/26/2024 06/26/2025 1 1 Encounter Details Date Type Department Care Team (Latest Contact Info) Description 12/30/2024 1:40 PM EDT Office Visit [facility] [address] [facility] [address] [place] [address] Roland Faust MD [address] [facility] [address] [place] [address] Typical atrial flutter (Multi) (Primary Dx); Nonischemic cardiomyopathy (Multi); Hypertension, unspecified type; Hypercholesteremia; Obesity (BMI 30-39.9); Current smoker Discharge Disposition: Home Social History Tobacco Use Types Packs/Day Years Used Date Smoking Tobacco: Every Day Cigarettes Smokeless Tobacco: Never Tobacco Cessation:Ready to Q uit: No; Counseling Given: Yes Alcohol Use Standard Drinks/Week Comments Never 0 (1 standard drink = 0.6 oz pur e alcohol) Comments Unknown Sex and Gender Information Value Date Recorded Sex Assigned at Not on file Legal Sex Female 3:01 AM EDT Gender Identity Not on file Sexual Orientation Not on file documented as of this encounter Last Filed Vital Signs Vital Sign Reading Time Taken Comments Blood Pressure 100/70 12/30/2024 1:47 PM EDT Pulse 62 12/30/2024 1:47 PM EDT Temperature - - Respiratory Rate - - Oxygen Saturation - - Inhaled Oxygen Concentration - - Weight 89.4 kg (197 lb) 12/30/2024 1:47 PM EDT Height 170.2 cm (5' 7 ) 12/30/2024 1:47 PM EDT Body Mass Index 30.85 12/30/2024 1:47 PM EDT documented in this encounter Patient Instructions * Patient Instructions* Edilma Menezes LPN - 12/30/2024 1:40 PM EDT Please bring all medicines, vitamins, and herbal supplements with you when you come to the office. Prescriptions will not be filled unless you are compliant with your follow up appointments or have a follow up appointment scheduled as per instruction of your physician. Refills should be requested at the time of your visit. BMI was above normal measurement. Current weight: 89.4 kg (197 lb) Weight change since last visit (-) denotes wt loss -10.6 lbs Weight loss needed to achieve BMI 25: 37.7 Lbs Weight loss needed to achieve BMI 30: 5.9 Lbs Provided instructions on dietary changes. * Attachments The following attachments cannot be sent through Care Everywhere. * Heart Healthy Diet (Russian) * Quitting smoking (Russian) documented in this encounter Progress Notes * Roland Faust MD - 12/30/2024 1:40 PM EDT Chief Complaint Patient presents with Follow-up 6 month, nonischemic cardiomyopathy Subjective Kerry Gay is a 69 y.o. female HPI Patient here for follow-up continue management for history of atrial flutter with prior cardioversion. She was on amiodarone but due to side effect it was stopped. Since then she remained in sinus rhythm. Since last time I saw her she was in the hospital recently for treatment of celluliti an diabetic foot ulcer s. Her record noted and reviewed. Patient admit to sedentary lifestyle. She denies chest pain, lightheadedness, dizziness or syncope. She remained in sinus rhythm. She has not had any recurrence of her atrial fibrillation. Assessment 1. Atrial flutter with prior cardioversion. She was on amiodarone but discontinued due to concern about amiodarone causing lower extremity weakness. She appeared to have had a brief episode of A-fib while in the hospital for workup for TIA about 8 months ago with no recurrence since then 2. Questionable intolerance to amiodarone due to extreme weakness however this turned out to be more musculoskeletal issues 3. Long-term anticoagulation 4. History of nonischemic cardiomyopathy improved last echocardiogram showed normal LV systolic function. No previous stress test was done but the patient denies any anginal symptoms 5. Hypertension controlled 5. Hyperlipidemia 6. Continue tobacco use 7. Diabetes mellitus 8. Obesity with BMI of 30 9. Diabetic foot ulcer treated recently in the hospital Plan 1. The patient clinically remained in sinus rhythm. She has not had any recurrence. In the future if she had recurrence we will consider sotalol or Tikosyn 2. We discussed risk factor modification 3. Risk, benefit and alternative anticoagulation reviewed with patient at length she understood andagreed 4. We discussed ischemic evaluation again the patient want to defer for now 5. Advised her to notify us if she develop any recurrence of her arrhythmia 6. Will see her back in 6 months with an EKG Review of Systems All other systems reviewed and are negative. Vitals: 12/30/24 1347 BP: 100/70 BP Location: Left arm Patient Position: Sitting Pulse: 62 Weight: 89.4 kg (197 lb) Height: 1.702 m (5' 7 ) [...] Sulfa (sulfonamide antibiotics) Current Medications Current Outpatient Medications Medication Instructions apixaban (ELIQUIS) 5 mg, oral, 2 times daily aspirin 81 mg, Daily carvedilol (COREG) 12.5 mg, oral, 2 times daily (morning and late afternoon) docusate sodium (COLACE) 100 mg, 2 times daily donepezil (ARICEPT) 10 mg, 2 times daily empagliflozin (JARDIANCE) 25 mg, Daily folic acid (FOLVITE) 1 mg, Daily furosemide (LASIX) 20 mg, oral, Every other day HumaLOG KwikPen Insulin 100 unit/mL injection inject subcutaneously before meals and at bedtime 1:50 CORRECTIVE SCALE (EXPECT UP TO 20 UNITS/DAY insulin glargine (TOUJEO SOLOSTAR- 1 UNIT DIAL) 20 Units magnesium oxide (MAG-OX) 400 mg, 2 times daily memantine (NAMENDA) 10 mg, 2 times daily metFORMIN (GLUCOPHAGE) 500 mg, 2 times daily (morning and late afternoon) omeprazole (PRILOSEC) 20 mg, Daily before breakfast semaglutide (Ozempic) 1 mg/dose (4 mg/3 mL) pen injector 2 mg 1 (one) time per week. simvastatin (ZOCOR) 20 mg, oral, Daily Assessment/Plan 1. Typical atrial flutter (Multi) 2. Nonischemic cardiomyopathy (Multi) Follow Up In Cardiology Follow Up In Cardiology 3. Hypertension, unspecified type 4. Hypercholesteremia 5. Obesity (BMI 30-39.9) 6. Current smoker Scribe Attestation By signing my name below, IFranciscoEdilmaSamantha Narvaez LPNibguerline attest that this documentation has been prepared [...] discussion and plan. documented in this encounter Plan of Treatment Upcoming Encounters Date Type Department Care Team (Late st Contact Info) Description 08/17/2025 3:10 PM EDT Office Visit [address] [address] Roland Faust MD [address] [place] [address] 2, [facility] [address] [place] [address] documented as of this encounter Visit Diagnoses Diagnosis Typical atrial flutter (Multi)- Primary Nonischemic cardiomyopathy (Multi) Other primary cardiomyopathies Hypertension, unspecified type Hypercholesteremia Pure hypercholesterolemia Obesity (BMI 30-39.9) Current smoker documented in this encounter Additional Health Concerns Assessment Noted Time A fall risk assessment has been complete d for the patient 06/26/2024 9:48 AM EST documented as of this encounter Care Teams Closet Builder Relationship Specialty Start Date End Date RohShantel zuñiga APRN-[employer] [address] [place] [address] PCP - General Family Medicine 12/30/24 documented as of this encounter
--- OUTSIDE RECORDS SUMMARY | 2024-12-31 16:00 | XMS_ITS | Encounter Summary ---
Author Organization [facility] Address [address] [place] [address] Care Team Providers Care Business Ethics Professor Name Role Phone Sandra Lewis DO Primary Care Provider [phone] Reason for Visit * Imaging (Routine) - Closed Specialty Diagnoses / Procedures Referred By Contac t Referred To Contact Radiology Diagnoses Lumbosacral radiculopathy at L5 Weakness of both lower extremities Leg pain, bilateral Procedures MR lumbar spine wo contrast Luan Kincaid MD [address] [place] [address] Phone: tel: fax: [facility] [address] [place] [address] Phone: tel: fax: Referral ID Status Reason Start Date Expiration Date V isits Requested Visits Authorized [id number] Closed Perform Procedure 12/18/2024 06/16/2025 1 1 Encounter Details Date Type Department Care Team (Latest Contact Info) Description 12/31/2024 4:00 PM EDT Ancillary Procedure [facility] [address] [place] [address] Lumbosacral radiculopathy at L5; Weakness of both lower extremities; Leg pain, bilateral Social History Tobacco Use Types Packs/Day Years Used Date Smoking Tobacco: Every Day Cigarettes 1 49.7 Started: 1975 Smokeless Tobacco: Current Comments:Smokes 11-20 [...] Care Team (Late st Contact Info) Description 01/19/2025 4:00 PM EDT Office Visit [facility] [address] [place] [address] Luan Kincaid MD [address] [facility] [address] [place] [address] documented as of this encounter Procedures Procedure Name Priority Date/Time Associated Diagnosis Comments MR LUMBAR SPINE WO CONTRAST Routine 12/31/2024 4:24 PM EDT Lumbosacral radiculopathy at L5 Weakness of both lower extremities Leg pain, bilateral documented in this encounter Results * MR lumbar spine wo contrast (12/31/2024 4:24 PM EDT) Anatomical Region Laterality Modality Spine, L-spine Magnetic Resonan ce 01/01/2025 9:52 AM EDT Impressions 01/01/2025 10:01 AM EDT Degenerative changes of the lumbar spine as detailed. Nonspecific 3 cm lesion of the spleen is likely a cyst or hemangioma. Correlation with prior imaging would be of benefit to ensure stability. ELECTRONICALLY SIGNED BY: Almas Reeves DO Narrative 01/01/2025 10:01 AM EDT EXAM: MR LUMBAR SPINE WO CONTRAST History: Low back pain with radiculopathy. Leg weakness. Technique: Multiplanar multisequence MRI of the lumbar spine was obtained without intravenous contrast. Comparison: MRI of the lumbar spine December 17, 2023 Findings: The conus medullaris ends normally. The alignment of the lumbar spine is anatomic. The vertebral body heights are well maintained. There is no aggressive bone marrow signal abnormality. Disc desiccation and mild intervertebral disc height loss throughout the lumbar spine. T12-L1: Small central disc protrusion with annular fissure. No neural foraminal or spinal canal stenosis. L1-L2: Small disc bulge. No neuroforaminal or spinal canal stenosis. L2-L3: Small disc bulge. Mild facet arthropathy. Ligamentum flavum thickening. Mild spinal canal stenosis. Mild bilateral neural foraminal stenosis. L3-L4: Small disc bulge. Mild facet arthropathy. Ligamentum flavum thickening. Mild spinal canal stenosis. Mild bilateral neural foraminal stenosis. L4-L5: Small disc bulge. Mild bilateral neural foraminal stenosis. Mild spinal canal stenosis. L5-S1: Small disc bulge. Mild facet arthropathy. Moderate bilateral neuroforaminal stenosis. No spinal canal stenosis. Visualized paravertebral soft tissues appear within normal limits. A round 3 cm structure within the spleen is slightly hyperintense to the remainder of the splenic parenchyma. Procedure Note Almas Reeves DO - 01/01/2025 EXAM: MR LUMBAR SPINE WO CONTRAST History: Low back pain with radiculopathy. Leg weakness. Technique: Multiplanar multisequence MRI of the lumbar spine was obtainedwithout intravenous contrast. Comparison: MRI of the lumbar spine December 17, 2023 Findings: The conus medullaris ends normally. The alignment of the lumbar spine isanatomic. The vertebral body heights are well maintained. There is no aggressivebone marrow signal abnormality. Disc desiccation and mild intervertebral disc height loss throughout thelumbar spine. T12-L1: Small central disc protrusion with annular fissure. No neuralforaminal or spinal canal stenosis. L1-L2: Small disc bulge. No neuroforaminal or spinal canal stenosis. L2-L3: Small disc bulge. Mild facet arthropathy. Ligamentum flavumthickening. Mild spinal canal stenosis. Mild bilateral neural foraminalstenosis. L3-L4: Small disc bulge. Mild facet arthropathy. Ligamentum flavumthickening. Mild spinal canal stenosis. Mild bilateral neural foraminalstenosis. L4-L5: Small disc bulge. Mild bilateral neural foraminal stenosis. Mildspinal canal stenosis. L5-S1: Small disc bulge. Mild facet arthropathy. Moderate bilateralneuroforaminal stenosis. No spinal canal stenosis. Visualized paravertebral soft tissues appear within normal limits. A round 3 cm structure within the spleen is slightly hyperintense to theremainder of the splenic parenchyma. IMPRESSION: Degenerative changes of the lumbar spine as detailed. Nonspecific 3 cm lesion of the spleen is likely a cyst or hemangioma.Correlation with prior imaging would be of benefit to ensure stability. ELECTRONICALLY SIGNED BY: Almas Reeves DO us Luan Kincaid MD [facility] MRI PROCEDURES Final Result documented in this encounter Visit Diagnoses Diagnosis Lumbosacral radiculopathy at L5 Weakness of both lower extremities Leg pain, bilateral Pain in soft tissues of limb documented in this encounter Care Teams Business Ethics Professor Relationship Specialty Start Date End Date Sandra Lewis DO [address] [place] [address] PCP - General Family Medicine 10/15/24 documented as of this encounter
--- OUTSIDE RECORDS SUMMARY | 2025-01-05 14:15 | XMS_ITS | Continuity of Care Document ---
Author Organization [facility] Address [address] [place] [address] Phone Allergies, Adverse Reactions, Alerts Allergen Type Severity Reaction Last Updated Verified Status Sulfa (Sulfonamide Antibiotics) Allergy Unknown Vomiting January 05 1:39pm Yes Active Social History Smoking Status Status Start Date End Date Date of Observa tion Smokes tobacco daily (finding) September 10, 2024 11:03am Observation Status Observation Response Date of Response Legal Sex Female (finding) Sex Assigned At Female 1955 Family History Relationship Condition Age at Onset Recorded Date/T cinthya father Heart disease Unknown History of stroke Unknown Malignant neoplasm Unknown Unknown mother Unknown Heart disease Unknown Hypertension Unknown son Diabetes mellitus Unknown sister Unknown brother Unknown Problems Active Problems Medical Problem Onset Date Status Daytime sleepiness Unknown Active Lesion of skin of cheek Unknown Active UTI (urinary tract infection) Unknown Ac tive Emphysematous cystitis Unknown Active Allergy to honey bee venom Unknown Activ e Wound of foot Unknown Active High granulocyte count Unknown Active Primary insomnia Unknown Active [place] (obstructive sleep apnea) Unknown Ac tive Screening for osteoporosis Unknown Activ e Insulin long-term use Unknown Active Major depression, chronic Unknown Active Type 2 diabetes mellitus with hyperglycemia Unkn own Active Current every day smoker Unknown Active Insulin dependent diabetes mellitus Unknown Active Dizziness Unknown Active Ambulatory dysfunction Unknown Active Diabetes Unknown Active New onset atrial flutter Unknown Active Vitamin B 12 deficiency Unknown Active Dietary counseling and surveillance Unknown Active Type 2 diabetes mellitus Unknown Active Chronic kidney disease (CKD) stage G2/A2, mildly decreased glomerular filtration rate (GFR) between 60-89 mL/min/1.73 square meter and albuminuria creatinine ratio between 30-299 mg/g Unknown Active Congestive heart failure Unknown Active Generalized weakness Unknown Active Atrial fibrillation Unknown Active Dysphagia, unspecified Unknown Active Depression Unknown Active Stool incontinence Unknown Active TIA (transient ischemic attack) Unknown Active Intolerance to BiPAP/CPAP Unknown Active Hyperlipidemia Unknown Active Hypothyroid Unknown Active Post-menopausal Unknown Active Diabetes mellitus with neuropathy Unknown Active Peripheral neuropathy Unknown Active Pyelonephritis Unknown Active Disordered sleep Unknown Active Tachycardia Unknown Active Peripheral vascular disease Unknown Acti ve Cigarette nicotine dependence Unknown Ac tive Weakness Unknown Active BMI 35.0-35.9,adult Unknown Active BMI 28.0-28.9,adult Unknown Active BMI 30.0-30.9,adult Unknown Active BMI 32.0-32.9,adult Unknown Active Secondary polycythemia Unknown Active PAD (peripheral artery disease) Unknown Active Acute UTI Unknown Active Screening for lung cancer Unknown Active Screening for breast cancer Unknown Acti ve Achalasia Unknown Active Abdominal pain Unknown Active Hospital discharge follow-up Unknown Act abdifatah Hypertension Unknown Active Hypotension Unknown Active Cardiomyopathy Unknown Active Lumbar spondylosis Unknown Active Cholelithiasis Unknown Active Right lateral abdominal pain Unknown Act abdifatah Abnormal thyroid blood test Unknown Acti ve Hypomagnesemia Unknown Active Inactive/Resolved Problems Medical Problem Onset Date Status Chest pain Unknown Resolved Atrial flutter with rapid ventricular response U nknown Resolved Medications Medication Status Dose Units Route Directions Qty Days St art Date Stop Date End Date Instructions Adherence Omeprazole 20 mg capsule,del ayed release(DR/ EC) Discont inued 0 .ROUTE .COMPLEX July 01, 2023 9:09am Septe mber 2023 12:36 pm take 1 capsule by mouth once daily Temazepam 30 mg capsule Discont inued 30 MG PO Daily August 19, 2023 7:52am September 17, 2023 1:55p m Metformin 500 mg tablet Discont inued 0 .ROUTE .COMPLEX August 26, 2023 10:13a m August 20, 2024 12:01 pm take 1 tablet by mouth twice a day with meals Lisinopril 5 mg tablet Discont inued 0 .ROUTE .COMPLEX September 09, 2023 9:36am November 05, 2023 12:26 pm take 1 tablet by mouth once daily [employer] Discont inued 0 .Route September 30, 2023 8:33am 2023 2:21p m As directed Folic Acid 1 mg tablet Discont inued 1 MG PO Daily October 16, 2023 7:36am 2024 8:38a m Nortriptyli ne 50 mg capsule Discont inued 100 MG PO Daily 180 October 16, 2023 7:37am November 18, 2023 2:05p m Temazepam 30 mg capsule Discont inued 30 MG PO Daily 30 November 08, 2023 4:42pm Augus t 2023 12:39 pm [facility] Discont inued 0 .Route November 26, 2023 2:22pm November 26, 2023 2:25p m As directed [facility] mis Discont inued 0 .Route November 26, 2023 2:24pm Decem 2023 12:40 pm Hospital Bed Apixaban (Eliquis) 5 mg tablet Discont inued 5 MG PO Twice daily December 03, 2023 1:05pm July 08, 2024 11:49 am Magnesium Oxide (Magox) 400 mg (241.3 mg magnesium) tablet Discont inued 400 MG PO Twice daily December 03, 2023 1:06pm Octob er 2023 10:23 am Temazepam 30 mg capsule Discont inued 30 MG PO Daily 30 December 16, 2023 12:39p m Septe mber 2023 1:58p m Insulin Lispro 100 unit/mL insulin pen Discont inued 0 SUBCUT Before meals and at bedtime December 23, 2023 4:11pm August 20, 2024 12:04 pm subcutaneousl y before meals and at bedtime; 1:50 corrective scale (expect up to 20 units/day) Omeprazole 20 mg capsule,del ayed release(DR/ EC) Discont inued 0 .ROUTE .COMPLEX 2023 12:36p m September 10, 2024 12:44 pm take 1 capsule by mouth once daily Flash Glucose Sensor (Freestyle Brent 14 Day Sensor) kit Discont inued 0 .ROUTE .MEDSUPPLY 2023 12:00a m Septe mber 2024 7:04a m As directed Change every 14 days Temazepam 30 mg capsule Discont inued 30 MG PO Daily 30 2023 1:58pm Octob er 2023 4:31p m Magnesium Oxide 400 mg (241.3 mg magnesium) tablet Discont inued 0 .ROUTE .COMPLEX 180 Octobe r 2023 10:22a m September 02, 2024 9:48a m TAKE 1 TABLET BY MOUTH TWICE A DAY Temazepam 30 mg capsule Discont inued 30 MG PO Daily 30 30 Octobe r 2023 4:31pm Novem vivek 2023 5:37p m Temazepam 30 mg capsule Discont inued 30 MG PO Daily 30 30 Novemb er 2023 5:37pm Decem vivek 2023 2:42p m Temazepam 30 mg capsule Discont inued 30 MG PO Daily 30 30 Decemb er 2023 2:42pm Janua ry 2024 11:27 am Folic Acid 1 mg tablet Active 0 .ROUTE .COMPLEX 90 y 2024 8:37am TAKE 1 TABLET BY MOUTH EVERY DAY Complies with drug therapy Donepezil 10 mg tablet Active 20 MG PO Daily July 03, 2024 1:02pm Complies with drug therapy Memantine 10 mg tablet Active 10 MG PO Twice daily July 03, 2024 1:03pm Complies with drug therapy Nortriptyli ne 25 mg capsule Active 25 MG PO Daily at bedtime July 03, 2024 1:03pm Complies with drug therapy Pregabalin 300 mg capsule Discont inued 300 MG PO Daily July 03, 2024 1:03pm October 01, 2024 3:16p m Apixaban (Eliquis) 5 mg tablet Discont inued 0 .ROUTE .COMPLEX July 08, 2024 11:49a m [facility] 2024 8:34a m TAKE 1 TABLET BY MOUTH TWICE A DAY Cephalexin 500 mg capsule Discont inued 500 MG PO Every 8 hours July 10, 2024 12:00a m July 22, 2024 11:18 am Simvastatin 20 mg tablet Active 40 MG PO Daily July 24, 2024 12:37p m Complies with drug therapy Magnesium Oxide 400 mg (241.3 mg magnesium) tablet Active 0 .ROUTE .COMPLEX 180 September 02, 2024 9:48am TAKE 1 TABLET BY MOUTH TWICE A DAY Complies with drug therapy Bupropion Hcl 150 mg tablet extended release 24 hr Discont inued 0 .ROUTE .COMPLEX 90 September 16, 2024 10:37a m Septe mber 2024 1:40p m TAKE 1 TABLET BY MOUTH EVERY MORNING Omeprazole 20 mg capsule,del ayed release(DR/ EC) Active 0 .ROUTE .COMPLEX 90 December 14, 2024 7:53am TAKE 1 CAPSULE BY MOUTH EVERY DAY Complies with drug therapy Flash Glucose Sensor (Freestyle Brent 14 Day Sensor) kit Active 0 .ROUTE .MEDSUPPLY 2 2024 7:04am As directed Change every 14 days Apixaban (Eliquis) 5 mg tablet Active 0 .ROUTE .COMPLEX 180 2024 8:34am TAKE 1 TABLET BY MOUTH TWICE A DAY Complies with drug therapy Temazepam 30 mg capsule Discont inued 30 MG PO Daily October 10, 2022 12:00a m August 19, 2023 7:52a m Insulin Lispro 100 unit/mL Insulin Pen Discont inued slidin g scale dose SUBCUT Before meals and at bedtime October 10, 2022 12:00a m 2023 9:13a m Insulin Glargine U-300 Conc (Toujeo Solostar U-300 Insulin) 300 unit/mL (1.5 mL) insulin pen Discont inued UNIT SUBCUT October 10, 2022 12:00a m u 2023 9:13a m Insulin Glargine U-300 Conc (Toujeo Solostar U-300 Insulin) 300 unit/mL (1.5 mL) insulin pen Discont inued 20 UNIT SUBCUT Daily 2023 9:03am November 14, 2023 4:13p m Insulin Lispro 100 unit/mL insulin pen Discont inued 0 SUBCUT Before meals and at bedtime 2023 9:05am Augus t 2023 4:14p m subcutaneousl y before meals and at bedtime; 1:50 corrective scale (expect up to 20 units/day) Amiodarone 200 mg tablet Discont inued 200 MG PO Twice daily November 04, 2023 12:00a m Decem 2023 10:39 am Metoprolol Succinate 50 mg Tablet Extended Release 24 Hr Discont inued 50 MG PO Three times daily November 04, 2023 12:00a m Decem vivek 2023 10:40 am Cefuroxime Axetil 500 mg tablet Discont inued 500 MG PO Twice daily 2024 1:00am August 20, 2024 10:10 am Simvastatin 20 mg Tablet Discont inued 40 MG PO Daily 2024 11:26a m July 24, 2024 12:37 pm Omeprazole 20 mg capsule,del ayed release(DR/ EC) Discont inued 40 MG PO 1 time daily September 10, 2024 12:44p m Augus t 2024 7:53a m take 1 capsule by mouth once daily Multivitami n Tablet Discont inued 1 TAB PO Twice daily Octobe r 2020 12:00a m Febru [email or web address] 9:13a m Pioglitazon e 15 mg Tablet Discont inued 15 MG PO Daily Octobe r 2020 12:00a m Decem vivek 2023 1:57p m Metformin 500 mg Tablet Discont inued 500 MG PO Twice daily Octobe r 2020 12:00a m August 26, 2023 10:13 am Cyanocobala min (Vitamin B-12) (Vitamin B-12) 1,000 mcg Tablet Discont inued 1000 MCG PO Daily Octobe r 2020 12:00a m Augus t 2021 5:58a m Aspirin 81 mg Tablet,Manjula yed Release (Dr/Ec) Active 81 MG PO Daily Octobe r 2020 12:00a m Complies with drug therapy Temazepam 30 mg Capsule Discont inued 30 MG PO Daily at bedtime Octobe r 2020 12:00a m Augus t 2021 6:00a m Simvastatin 20 mg Tablet Discont inued 20 MG PO Daily Octobe r 2020 12:00a m Aprua ry 2024 11:27 am Lisinopril 10 mg Tablet Discont inued 5 MG PO Daily Octobe r 2020 12:00a m Febru [email or web address] 9:13a m Docusate Sodium (Stool Softener) 100 mg Capsule Discont inued 100 MG PO Three times daily Octobe r 2020 12:00a m u 2023 9:13a m Folic Acid 1 mg Tablet Discont inued 1 MG PO Daily Octobe r 2020 12:00a m October 16, 2023 7:38a m Loratadine 10 mg Tablet Discont inued 10 MG PO Daily Octobe r 2020 12:00a m October 10, 2022 12:16 pm Nortriptyli ne 50 mg Capsule Discont inued 50 MG PO Twice daily Octobe r 2020 12:00a m Febru 2023 9:13a m Metoclopram tee Hcl 10 mg Tablet Discont inued 10 [facility] 12:[facility] m October 10, 2022 12:15 pm Insulin Lispro (Admelog Solostar U-100 Insulin) 100 unit/mL Insulin Pen Discont inued 1 slidin g scale dose SUBCUT Use as Directed [facility] r 2020 12:00a m October 10, 2022 12:17 pm Omeprazole 20 mg Tablet,Manjula yed Release (Dr/Ec) Discont inued 20 MG PO Daily Octobe r 2020 12:00a m July 01, 2023 9:09a m Empaglifloz in (Jardiance) 25 mg Tablet Discont inued 25 MG PO Daily [facility] 12:00a m Decem 2023 1:59p m Semaglutide (Ozempic) 0.25 mg or 0.5 mg(2 mg/1.5 mL) Pen Injector Discont inued 1 MG SUBCUT every week [facility] 12:00a m Decem vivek 2023 12:39 pm Marvin Nortriptyli ne 50 mg capsule Discont inued 50 MG PO Twice daily Februa 2023 9:07am Febru 2023 8:10p m Docusate Sodium (Stool Softener) 100 mg capsule Discont inued 100 MG PO Three times daily Februa 2023 9:08am Febru 2023 4:43p m Lisinopril 10 mg tablet Discont inued 2.5 MG PO Daily 2023 9:09am 2023 4:42p m Multivitami n tablet Active 1 TAB PO Daily 2023 9:10am Complies with drug therapy Docusate Sodium (Stool Softener) 100 mg capsule Active 100 MG PO Daily as needed for constipatio n 2023 4:41pm Complies with drug therapy Nortriptyli ne 50 mg capsule Discont inued 100 MG PO Daily 2023 8:08pm October 16, 2023 7:38a m Acetaminoph en 325 mg Tablet Discont inued 650 MG PO Every 6 hours as needed for Pain Scale 1 - 3 or fever December 13, 2021 12:00a m Augus t 2021 5:59a m Cefuroxime Axetil 500 mg tablet Discont inued 500 MG PO Twice daily 6 December 13, 2021 12:00a m October 10, 2022 12:16 pm Apixaban (Eliquis) 5 mg Tablet Discont inued 5 MG PO Twice daily September 14, 2023 12:00a m Augus t 2023 1:06p m Metoprolol Succinate 50 mg Tablet Extended Release 24 Hr Discont inued 50 MG PO Daily September 14, 2023 12:00a m November 04, 2023 1:04p m Magnesium Oxide (Magox) 400 mg (241.3 mg magnesium) tablet Discont inued 400 MG PO Daily September 14, 2023 12:00a m November 18, 2023 2:05p m Metoclopram tee Hcl 10 mg tablet Discont inued 10 MG PO Daily at bedtime 2023 1:00am 2023 6:17p m Lisinopril 2.5 mg tablet Discont inued 2.5 MG PO Daily 2023 1:00am 2023 6:17p m flash glucose sensor (FreeStyle Brent 14 Day Sensor) Discont inued .Route 2023 1:00am July 22, 2023 7:32a m flash glucose sensor (FreeStyle Brent 14 Day Sensor) Discont inued .Route 2023 1:00am November 09, 2023 10:09 pm pen needle, diabetic (Sure-Fine Pen [place]) Discont inued .[facility]23 [facility] 1:32p m [facility] Discont inued 0 .Route September 17, 2023 12:00a m September 30, 2023 8:33a m As directed Temazepam 30 mg capsule Discont inued 30 MG PO Daily September 17, 2023 1:54pm September 17, 2023 1:57p m Temazepam 30 mg capsule Discont inued 30 MG PO Daily September 17, 2023 1:56pm November 08, 2023 4:43p m Lisinopril 5 mg tablet Discont inued 5 MG PO Daily November 18, 2023 12:00a m Dece vivek 2023 12:37 pm Pregabalin (Lyrica) 150 mg capsule Discont inued 150 MG PO Twice daily November 18, 2023 12:00a m Septe [facility] 2023 3:40p m Magnesium Oxide (Magox) 400 mg (241.3 mg magnesium) tablet Discont inued 400 MG PO Twice daily November 18, 2023 2:01pm Augus t 2023 1:06p m Nortriptyli ne 50 mg capsule Discont inued 50 MG PO Daily 90 November 18, 2023 2:01pm Octob er 2023 12:05 pm [facility] Discont inued 0 .Route 2023 2:20pm November 26, 2023 2:23p m As directed Semaglutide (Ozempic) 1 mg/dose (4 mg/3 mL) pen injector Discont inued 1 MG SUBCUT every week [facility] er 2023 1:00am Decem vivek 2023 1:57p m Lidocaine 5 % ointment Discont inued 1 APPLIC TOPICA L Daily as needed for pain Dece er 2023 1:00am August 20, 2024 10:11 am Memantine 10 mg tablet Discont inued 10 MG PO Twice daily [facility] 2023 1:00am July 03, 2024 1:05p m Nortriptyli ne 25 mg capsule Discont inued 25 MG PO Daily at bedtime [facility] 2023 1:00am July 03, 2024 1:05p m Donepezil 10 mg tablet Discont inued 20 MG PO Daily [facility] 2023 1:00am July 03, 2024 1:05p m Semaglutide (Ozempic) 2 mg/dose (8 mg/3 mL) pen injector Active 2 MG SUBCUT every week 9 [facility] 2023 1:00am Complies with drug therapy Empaglifloz in (Jardiance) 25 mg tablet Active 25 MG PO Daily 90 [facility] 2023 1:58pm Complies with drug therapy Insulin Glargine U-300 Conc (Toujeo Solostar U-300 Insulin) 300 unit/mL (1.5 mL) insulin pen Discont inued 22 UNIT SUBCUT Daily 9 [facility] 2023 1:59pm [facility] 2024 1:43p m Carvedilol 12.5 mg tablet Active 12.5 MG PO Twice daily [facility] 2023 1:00am Complies with drug therapy Pen Needle, Diabetic (Novofine 32) 32 gauge x 1/4 needle Active 0 .ROUTE .MEDSUPPLY 400 August 20, 2024 12:00a m As directed four times a day whichever brand is covered by insurance please Metformin 500 mg tablet Active 0 .ROUTE .COMPLEX 180 August 20, 2024 12:01p m take 1 tablet by mouth twice a day with meals Complies with drug therapy Insulin Lispro 100 unit/mL insulin pen Active 0 SUBCUT Before meals and at bedtime August 20, 2024 12:03p m subcutaneousl y before meals and at bedtime; 1:40 corrective scale (expect up to 20 units/day) Complies with drug therapy Doxycycline Hyclate 100 mg tablet Discont inued 100 MG PO Twice daily December 15, 2024 12:00a m [facility] 2024 1:40p m Amoxicillin -Pot Clavulanate 875-125 mg tablet Discont inued 1 TAB PO Twice daily December 15, 2024 12:00a m [email or web address] 1:40p m Sertraline 25 mg tablet Active 25 MG PO Daily December 15, 2024 12:00a m Complies with drug therapy Epinephrine 0.3 mg/0.3 mL auto-inject or Active 0.3 ML SUBCUT every 5 to 15 minutes as needed for allergy to bees December 15, 2024 12:00a m do not exceed 2 doses per episode Complies with drug therapy Tramadol 50 mg tablet Active 50 MG PO Twice daily as needed 2024 12:00a m Complies with drug therapy Insulin Glargine U-300 Conc (Toujeo Solostar U-300 Insulin) 300 unit/mL (1.5 mL) insulin pen Active 22 UNIT SUBCUT Every morning 2024 1:41pm Unknown Flash Glucose Sensor (Freestyle Brent 14 Day Sensor) kit Discont inued 0 .ROUTE .MEDSUPPLY July 22, 2023 12:00a m 2023 12:40 pm As directed Change every 14 days Lisinopril 5 mg tablet Discont inued 5 MG PO Daily September 09, 2023 12:00a m September 09, 2023 9:36a m Cyanocobala min (Vitamin B-12) 1,000 mcg capsule Active 1000 MCG PO Daily November 14, 2023 12:00a m Complies with drug therapy Insulin Glargine U-300 Conc (Toujeo Solostar U-300 Insulin) 300 unit/mL (1.5 mL) insulin pen Discont inued 20 UNIT SUBCUT Daily November 14, 2023 4:09pm 2023 1:59p m Pregabalin 300 mg capsule Discont inued 300 MG PO Daily 2023 12:00a m July 03, 2024 1:05p m Amoxicillin -Pot Clavulanate 875-125 mg tablet Discont inued TAB PO 2023 12:00a m Dece 2023 10:39 am Cyclobenzap rine 10 mg tablet Discont inued 10 MG PO As Directed as needed for muscle spasm 2023 12:00a m 2024 11:27 am Furosemide 20 mg tablet Active 20 MG PO Every 48 hours 2024 1:00am Complies with drug therapy Nicotine 21 mg/24 hr patch 24 hour Discont inued 1 PATCH TRANSD ERML Daily 2024 1:00am August 20, 2024 10:11 am L. acidophilus /Bifid. animalis (Daily Probiotic) Discont inued 1 TAB PO Daily August 25, 2024 12:00a m Augus t 2024 1:58p m Bupropion Hcl 150 mg tablet extended release 24 hr Discont inued 150 MG PO Every morning August 25, 2024 12:00a m September 16, 2024 10:38 am Pregabalin 300 mg capsule Active 600 MG PO Daily at bedtime October 01, 2024 3:13pm Complies with drug therapy Immunizations Immunization Event Date Not Given Reason Dose Number Associate Dean Lot Number Vaccine Information Statement (VIS) Detail Administration Location Measles, Mumps, and Rubella Virus Vaccine April 02, 2002 Trivalent Influenza Vaccine April 16, 2022 Patient Refused Advance Directives Advance Directive Response Recorded Date/ Time Advance Directives No December 5:05pm Insurance Providers Guarantor Kerry Gay Address [address] [place] [id number] Contact Info. Home Phone: Payer Policy Id Subscriber's Name Subscriber Id Effective Date Expiration Date Medicaid [id number] Kerry Gay [id number] [employer] [id number] Kerry Gay [id number] Plan of Treatment Future Tests Future scheduled test information is unavailable Pending Tests Test Name Ordered Date Scheduled Date XR dexa axial skeleton December 16, 2024 10:38am CT lung screening December 16, 2024 10:38am MM screening mammo BI w/CAD December 16, 2024 10 :38am Future Visits Future appointment information is unavailable Referrals to Other Providers Referral information is unavailable Future Procedures Future procedure information is unavailable Future Medications Future medication information is unavailable Patient Instructions Patient instructions are unavailable
--- OUTSIDE RECORDS SUMMARY | 2025-01-12 11:06 | XMS_ITS | Continuity of Care Document ---
Author Organization [facility] Address [address] [place] [address] Phone Care Team Providers Care Financial Services Auditor Name Role Phone Maureen Fritz DPM Attending Provider [phone] Shantel Norton APRN Primary Care Provider Shantel Norton APRN Attending Provider Samm Medina MD Attending Provider [phone] Samm Medina MD Other Provider [phone] Angelique Russell APRN Attending Provider Care Teams Patient Care Team Team Status: Active Member Role Status Dates Shantel Norton APRN SURGICAL GARMENT ASSEMBLY SUPERVISOR-C Primary Care Provider Active Visit Care Team Team Status: Inactive Member Role Status Dates Maureen Fritz DPM Attending Provider Active Start: November 16, 2024 End: November 16, 2024 Visit Care Team Team Status: Inactive Member Role Status Dates Shantel Norton APRN SURGICAL GARMENT ASSEMBLY SUPERVISOR-C Primary Care Provider Active Start: December 15, 2024 End: December 15, 2024 Shantel Norton APRN SURGICAL GARMENT ASSEMBLY SUPERVISOR-C Attending Provider Act abdifatah Start: December 15, 2024 End: December 15, 2024 Visit Care Team Team Status: Inactive Member Role Status Dates Samm Medina MD Attending Provider Active S tart: December 24, 2024 End: December 24, 2024 Shantel Norton APRN SURGICAL GARMENT ASSEMBLY SUPERVISOR-C Primary Care Provider Active Start: December 24, 2024 End: December 24, 2024 Visit Care Team Team Status: Active Member Role Status Dates Samm Medina MD Attending Provider Active S tart: December 31, 2024 Samm Medina MD Other Provider Active Start : December 31, 2024 Shantel Norton APRN SURGICAL GARMENT ASSEMBLY SUPERVISOR-C Primary Care Provider Active Start: December 312024 Visit Care Team Team Status: Inactive Member Role Status Dates Shantel Norton APRN SURGICAL GARMENT ASSEMBLY SUPERVISOR-C Primary Care Provider Active Start: January 052024 End: January 05, 2025 Angelique Russell APRN Attending Provider Active Start: January 05, 2025 End: January 05, 2025 Patient Care Team Team Status: Inactive Member Role Status Dates Shantel Norton APRN SURGICAL GARMENT ASSEMBLY SUPERVISOR-C Primary Care Provider Active Start: December 282024 End: January 12, 2025 Shantel Norton APRN SURGICAL GARMENT ASSEMBLY SUPERVISOR-C Attending Provider Active Start: December End: January 12, 2025 Chief Complaint and Reason for Visit Chief Complaint Admit Date L97.512 November 16, 2024 4:48 pm establish December 15, 2024 1: 46pm Unspecified sleep apnea December 24 7:39pm APNEA December 31, 2024 12:00am 4 week follow up January 12, 2025 2:19pm Reason for Visit Admit Date Allergy to honey bee venom December 15, 2024 1:46pm Atrial fibrillation December 15, 2024 1: 46pm Current every day smoker December 15 1:46pm Depression December 15, 2024 1: 46pm Diabetes mellitus with neuropathy December 15, 2024 1:46pm Insulin dependent diabetes mellitus Augu st 2024 1:46pm Lumbar spondylosis December 15, 2024 1: 46pm PAD (peripheral artery disease) November 272024 1:46pm Post-menopausal December 15, 2024 1: 46pm Screening for breast cancer December 15, 2024 1:46pm Screening for lung cancer December 15, 025 1:46pm Screening for osteoporosis December 15, 2024 1:46pm Wound of foot December 15, 2024 1: 46pm Class 1 obesity with body ma ss index (BMI) of 30.0 to 30.9 in adult January 05, 2025 1:23pm Dietary counseling and surveillance Sept ember 2024 1:23pm Hyperlipidemia January 05, 2025 1:23pm Hypertension January 05, 2025 1:23pm Peripheral neuropathy January 05 1:23pm Type 2 diabetes mellitus January 05, 2025 1:23pm Vitamin B 12 deficiency January 05 025 1:23pm Current every day smoker January 12, 2025 2:19pm Depression January 12, 2025 2:19pm Lesion of spleen January 12, 2025 2:19pm Allergies, Adverse Reactions, Alerts Allergen Type Severity Reaction Last Updated Verified Status Sulfa (Sulfonamide Antibiotics) Allergy Unknown Vomiting January 12, 2025 2:21pm Yes Active pioglitazone Adverse Reaction Mild leg edema January 12, 2025 2:21pm Yes Active Social History Smoking Status Status [...] Achalasia Unknown Active Abdominal pain Unknown Active Lesion of spleen Unknown Active Hospital discharge follow-up Unknown Act abdifatah Hypertension Unknown Active Hypotension Unknown Active Cardiomyopathy Unknown Active Lumbar spondylosis Unknown Active Class 1 obesity with body mass index (BMI) of 30 .0 to 30.9 in adult Unknown Active Cholelithiasis Unknown Active Right lateral [...] .ROUTE .COMPLEX July 01, 2023 9:09am Septe 2023 12:36 pm take 1 capsule by mouth once daily Temazepam 30 mg capsule Discont inued 30 MG PO Daily August 19, 2023 7:52am September 17, 2023 1:55p m Metformin 500 mg tablet Discont inued 0 .ROUTE .COMPLEX 180 August 26, 2023 10:13a m August 20, 2024 12:01 pm take 1 tablet by mouth twice a day with meals Lisinopril 5 mg tablet Discont inued 0 .ROUTE .COMPLEX September 09, 2023 9:36am November 05, 2023 12:26 pm take 1 tablet by mouth once daily [facility] [employer] [facility] Discont inued 0 .Route September 30, 2023 8:33am 2023 2:21p m As directed Folic Acid 1 mg tablet Discont inued 1 MG PO Daily October 16, 2023 7:36am Janua ry 2024 8:38a m Nortriptyli ne 50 mg capsule Discont inued 100 MG PO Daily 180 October 16, 2023 7:37am November 18, 2023 2:05p m Temazepam 30 mg capsule Discont inued 30 MG PO Daily 30 November 08, 2023 4:42pm Augus t 2023 12:39 pm [employer] [facility] Discont inued 0 .Route November 26, 2023 2:22pm November 26, 2023 2:25p m As directed [facility] Discont inued 0 .Route November 26, 2023 [...] capsule Discont inued 30 MG PO Daily December 16, 2023 12:39p m [facility] 2023 1:58p m Insulin Lispro 100 unit/mL insulin pen Discont inued 0 SUBCUT Before meals and at bedtime December 23, 2023 4:11pm August 20, 2024 12:04 pm subcutaneousl y before meals and at bedtime; 1:50 corrective scale (expect up to 20 units/day) Omeprazole 20 mg capsule,del ayed release(DR/ EC) Discont inued 0 .ROUTE .COMPLEX 90 2023 12:36p m September 10, 2024 12:44 pm take 1 capsule by mouth once daily Flash Glucose Sensor (Freestyle Brent 14 Day Sensor) kit Discont inued 0 .ROUTE .MEDSUPPLY 2 2023 12:00a m [facility] 2024 7:04a m As directed Change every 14 days Temazepam 30 mg capsule Discont inued 30 MG PO Daily 30 30 Septem vivek 2023 1:58pm Octob er 2023 4:31p m [...] mg tablet Active 0 .ROUTE .COMPLEX 90 2024 8:37am TAKE 1 TABLET BY MOUTH [...] mg tablet Discont inued 0 .ROUTE .COMPLEX 180 July 08, 2024 11:49a m Septe mb2024 8:34a m TAKE 1 TABLET BY MOUTH [...] .COMPLEX 90 September 16, 2024 10:37a m [facility]2024 1:40p m TAKE 1 TABLET BY MOUTH [...] TWICE A DAY Complies with drug therapy Sertraline 25 mg tablet Discont inued 25 MG PO Daily 2024 11:49a m [facility] 2024 2:36p m Temazepam 30 mg capsule Discont inued [...] UNIT SUBCUT October 10, 2022 12:00a m 2023 9:13a m Insulin Glargine U-300 Conc (Toujeo Solostar U-300 Insulin) 300 unit/mL (1.5 mL) insulin pen Discont inued 20 UNIT SUBCUT Daily 2023 9:03am November 14, 2023 4:13p m Insulin Lispro 100 unit/mL insulin pen Discont inued 0 SUBCUT Before meals and at bedtime 2023 9:05am 2023 4:14p m subcutaneousl y before meals and at bedtime; 1:50 corrective scale (expect up to 20 units/day) Amiodarone 200 mg tablet Discont inued 200 MG PO Twice daily November 04, 2023 12:00a m Dece vivek 2023 10:39 am Metoprolol Succinate 50 mg Tablet Extended Release 24 Hr Discont inued 50 MG PO Three times daily November 04, 2023 12:00a m Dece vivek 2023 10:40 am Cefuroxime Axetil 500 mg tablet Discont inued 500 MG PO Twice daily 2024 1:00am August 20, 2024 10:10 am Simvastatin 20 mg Tablet Discont inued 40 MG PO Daily 2024 11:26a m July 24, 2024 12:37 pm Omeprazole 20 mg capsule,del ayed release(DR/ EC) Discont inued 40 MG PO 1 time daily September 10, 2024 12:44p m Novus t 2024 7:53a m take 1 capsule by mouth once daily Multivitami n Tablet Discont inued 1 [facility] 12:00a m Febru 2023 9:13a m Pioglitazon e 15 mg Tablet Discont inued 15 MG PO Daily Octobe r 2020 12:00a m [facility] 2023 1:57p m Metformin 500 mg Tablet Discont inued 500 MG PO Twice daily Octobe r 2020 12:00a m August 26, 2023 10:13 am Cyanocobala min (Vitamin B-12) (Vitamin B-12) 1,000 mcg Tablet Discont inued 1000 MCG PO Daily Octobe r 2020 12:00a m Novus t 2021 5:58a m Aspirin 81 mg Tablet,Manjula yed Release (Dr/Ec) Active 81 MG PO Daily Octobe r 2020 12:00a m Complies with drug therapy Temazepam 30 mg Capsule Discont inued 30 MG PO Daily at bedtime Octobe r 2020 12:00a m Augus t 2021 6:00a m Simvastatin 20 mg Tablet Discont inued 20 MG PO Daily Octobe r 2020 12:00a m Janua ry 2024 11:27 am Lisinopril 10 mg Tablet Discont inued 5 MG PO Daily Octobe r 2020 12:00a m Febru 2023 9:13a m Docusate Sodium (Stool Softener) 100 mg Capsule Discont inued 100 MG PO Three times daily Octobe r 2020 12:00a m Febru 2023 9:13a m Folic Acid 1 mg Tablet Discont inued 1 MG PO Daily Octobe r 2020 12:00a m October 16, 2023 7:38a m Loratadine 10 mg Tablet Discont inued 10 MG PO Daily [facility] r 2020 12:00a m October 10, 2022 12:16 pm Nortriptyli ne 50 mg Capsule Discont inued 50 MG PO Twice daily [facility] r 2020 12:00a m Febru 2023 9:13a m Metoclopram tee Hcl 10 mg Tablet Discont inued 10 MG PO Daily Octobe r 2020 12:00a m October 10, 2022 12:15 pm Insulin Lispro (Admelog Solostar U-100 Insulin) 100 unit/mL Insulin Pen Discont inued 1 slidin g scale dose SUBCUT Use as Directed [facility] r 2020 12:00a m October 10, 2022 12:17 pm Omeprazole 20 mg Tablet,Manjula yed Release (Dr/Ec) Discont inued 20 MG PO Daily Octobe r 2020 12:00a m July 01, 2023 9:09a m Empaglifloz in (Jardiance) 25 mg Tablet Discont inued 25 MG PO Daily Octobe r 2020 12:00a m Decem 2023 1:59p m Semaglutide (Ozempic) 0.25 mg or 0.5 mg(2 mg/1.5 mL) Pen Injector Discont inued 1 MG SUBCUT every week [facility] r 2020 12:00a m Decem 2023 12:39 pm Saturday Nortriptyli ne 50 mg capsule Discont inued 50 MG PO Twice daily 2023 9:07am 2023 8:10p m Docusate Sodium (Stool Softener) 100 mg capsule Discont inued 100 MG PO Three times daily 2023 9:08am 2023 4:43p m Lisinopril 10 mg tablet Discont inued 2.5 MG PO Daily 2023 9:09am u 2023 4:42p m Multivitami n tablet Active [...] 10:09 pm pen needle, diabetic (Sure-Fine Pen [place]) Discont inued .Route 2023 1:00am [facility] 2024 1:32p m [facility] Discont inued 0 .Route September 17, 2023 [...] daily November 18, 2023 12:00a m [facility] 2023 3:40p m Magnesium Oxide (Magox) 400 mg (241.3 mg magnesium) tablet Discont inued 400 MG PO Twice daily November 18, 2023 2:01pm Augus t 2023 1:06p m Nortriptyli ne 50 mg capsule Discont inued 50 MG PO Daily 90 November 18, 2023 2:01pm Octob er 2023 12:05 pm [employer] misc Discont inued 0 .Route 2023 2:20pm November 26, 2023 2:23p m As directed Semaglutide (Ozempic) 1 mg/dose (4 mg/3 mL) pen injector Discont inued 1 MG SUBCUT every week [facility] 2023 1:00am [facility] 2023 1:57p m Lidocaine 5 % ointment Discont inued 1 APPLIC TOPICA L Daily as needed for pain [facility] 2023 1:00am August 20, 2024 10:11 am Memantine 10 mg tablet Discont inued 10 MG PO Twice daily [facility] 2023 1:00am July 03, 2024 1:05p m Nortriptyli ne 25 mg capsule Discont inued 25 MG PO Daily at bedtime [facility] 2023 1:00am July 03, 2024 1:05p m Donepezil 10 mg tablet Discont inued 20 MG PO Daily [facility] 2023 1:00am July 03, 2024 1:05p m Semaglutide (Ozempic) 2 mg/dose (8 mg/3 mL) pen injector Active 2 MG SUBCUT every week 9 [facility] 2023 1:00am Complies with drug therapy Empaglifloz in (Jardiance) 25 mg tablet Active 25 MG PO Daily 90 [facility] 2023 1:58pm Complies with drug therapy Insulin Glargine U-300 Conc (Toujeo Solostar U-300 Insulin) 300 unit/mL (1.5 mL) insulin pen Discont inued 22 UNIT SUBCUT Daily 9 [facility] 2023 1:59pm [facility] 2024 1:43p m Carvedilol 12.5 mg tablet Active 12.5 MG PO Twice daily [facility] 2023 1:00am Complies with drug therapy Pen Needle, Diabetic (Novofine 32) 32 gauge x 1/4 needle Active 0 .ROUTE .MEDSUPPLY 400 August 20, 2024 12:00a m As directed four times a day whichever brand is covered by insurance please Metformin 500 mg tablet Discont inued 0 .ROUTE .COMPLEX 180 August 20, 2024 12:01p m [facility] 2024 2:46p m take 1 tablet by mouth twice a day with meals Insulin Lispro 100 unit/mL insulin pen Active 0 SUBCUT Before meals and at bedtime August 20, 2024 12:03p m subcutaneousl y before meals and at bedtime; 1:40 corrective scale (expect up to 20 units/day) Complies with drug therapy Doxycycline Hyclate 100 mg tablet Discont inued 100 MG PO Twice daily December 15, 2024 12:00a m [facility] 1:40p m Amoxicillin -Pot Clavulanate 875-125 mg tablet Discont inued 1 TAB PO Twice daily December 15, 2024 12:00a m 2024 1:40p m Sertraline 25 mg tablet Discont inued 25 MG PO Daily December 15, 2024 12:00a m [facility]2024 11:50 am Epinephrine 0.3 mg/0.3 mL auto-inject or Active [...] insulin pen Discont inued 22 UNIT SUBCUT Every morning 2024 1:41pm 2024 2:45p m Insulin Glargine U-300 Conc (Toujeo Solostar U-300 Insulin) 300 unit/mL (1.5 mL) insulin pen Active 23 UNIT SUBCUT Every morning 2024 2:45pm Complies with drug therapy Metformin 500 mg tablet Active 0 .ROUTE .COMPLEX 180 2024 2:46pm take 1 tablet by mouth twice a day with meals Complies with drug therapy Flash Glucose Sensor (Freestyle Brent 14 Day Sensor) kit Discont inued 0 .ROUTE .MEDSUPPLY July 22, 2023 12:00a m [facility]2023 12:40 pm As directed Change every 14 days Lisinopril 5 mg tablet Discont inued 5 MG PO Daily September 09, 2023 12:00a m September 09, 2023 9:36a m Cyanocobala min (Vitamin B-12) 1,000 mcg capsule Active 1000 MCG PO Daily November 14, 2023 12:00a m Complies with drug therapy Insulin Glargine U-300 Conc (T[place]be[place] Solostar U-300 Insulin) 300 unit/mL (1.5 mL) insulin pen Discont inued 20 UNIT SUBCUT Daily November 14, 2023 4:09pm 2023 1:59p m Pregabalin 300 mg capsule Discont inued 300 MG PO Daily 2023 12:00a m July 03, 2024 1:05p m Amoxicillin -Pot Clavulanate 875-125 mg tablet Discont inued TAB PO 2023 12:00a m [facility] 2023 10:39 am Cyclobenzap rine 10 mg [...] 01, 2024 3:13pm Complies with drug therapy Ketoconazol e 2 % shampoo Active TOPICA L 2024 12:00a m Complies with drug therapy Sertraline 50 mg tablet Active 50 MG PO Daily 90 90 Septem 2024 2:35pm Complies with drug therapy Immunizations Immunization Event Date Not Given Reason Dose Number Coding Clerk Lot Number Vaccine Information Statement (VIS) Detail Administration Location Measles, Mumps, and Rubella Virus Vaccine April 02, 2002 Trivalent Influenza Vaccine April 16, 2022 Patient Refused Procedures Procedure Date Performed Status Superficial Wound Culture November 16, 2024 comple deepika Relevant Diagnostic Tests and/or Laboratory Data Laboratory Results Test Collection Date/Time Result Date/Time Result Interpretation Reference Range Result Comment Performing Site Bedside Hemoglobin A1c January 05, 2025 1:30pm January 05, 2025 1:49pm 8.6 % Bedside Glucose January 05, 2025 1:48pm January 05, 2025 1:49pm 259 Microbiology Results Procedure Source Result Collection Date/Time Result Date/Time Result Comment Performing Site Superficial Wound Culture Foot,Righ t, Ulcer Klebsiella oxytoca November 16, 2024 4:48pm November 18, 2024 9:54am [facility] [id number] [address] [facility] [address] Foot,Righ t, Ulcer Staphylococcus aureus November 16, 2024 4:48pm November 18, 2024 9:54am [facility] [id number] [address] [facility] [address] Vital Signs Vital Reading Result Reference Range Collection Date/Time Height 67 [in_i] December 15 1:52pm Weight 88.90 kg December 15 1:52pm Body Temperature 96.4 [degF] 97.6-99.0 November 1:52pm Heart Rate 79 /min 60-100 December 15 1:52pm Oxygen saturation by Pulse oximetry 98 % 95-100 December 15, 2024 1: 52pm BP Systolic 98 mm[Hg] 100-140 December 15 1:52pm BP Diastolic 62 mm[Hg] 60-100 December 15 1:52pm BMI (Body Mass Index) 30.7 kg/m2 December 15, 2024 1:52pm Height 67 [in_i] January 05, 2025 1:32pm Weight 88.50 kg January 05, 2025 1:32pm Heart Rate 79 /min 60-100 January 05, 2025 1:32pm Respiratory rate 18 /min 12-24 January 052024 1:32pm Oxygen saturation by Pulse oximetry 96 % 95-100 January 05, 2025 1:32pm BP Systolic 115 mm[Hg] 100-140 January 05, 2025 1:32pm BP Diastolic 70 mm[Hg] 60-100 January 05, 2025 1:32pm BMI (Body Mass Index) 30.5 kg/m2 2024 1:32pm Height 67 [in_i] January 12, 2025 2:23pm Weight 88.45 kg January 12, 2025 2:23pm Body Temperature 97.0 [degF] 97.6-99.0 December 282024 2:23pm Heart Rate 88 /min 60-100 January 12, 2025 2:23pm Oxygen saturation by Pulse oximetry 96 % 95-100 January 12, 2025 2:23pm BP Systolic 126 mm[Hg] 100-140 January 12, 2025 2:23pm BP Diastolic 80 mm[Hg] 60-100 January 12, 2025 2:23pm BMI (Body Mass Index) 30.5 kg/m2 2024 2:23pm Advance Directives Advance Directive Response Recorded Date/ Time Advance Directives No December 5:05pm Insurance Providers Guarantor Kerry Gay Address [address] [place] [phone] Contact Info. Home Phone: Payer Policy Id Subscriber's Name Subscriber Id Effective Date Expiration Date Medicaid [id number] Kerry Gay [id number] [employer] [id number] Kerry Gay [id number] Encounters Encounter Location(s) Arrival/Admit Date Discharge/Depart Date Provider(s) Departed Referred -Lab [facility] November 16, 2024 4:48pm November 16, 2024 4:49pm Maureen Fritz DPM Departed Physician/Prov ider Office Visit -[facility] December 15, 2024 1:46pm December 15, 2024 2:38pm Shantel Norton APRN CNP Departed Clinical -Sleep Lab December 24, 2024 7:39pm December 24, 2024 7:40pm Samm Medina MD Non-patient / Non-visit -[facility] December 31, 2024 12:00am Samm Medina MD Departed Physician/Prov ider Office Visit [facility] January 05, 2025 1:23pm January 05, 2025 2:15pm RATNA Guerrero Departed Physician/Prov ider Office Visit -[facility] January 12, 2025 2:19pm January 12, 2025 3:04pm Shantel Norton APRN CNP Recent Diagnosis Onset Date Admit Date Allergy to honey bee venom Unknown 2024 1:46pm Atrial fibrillation Unknown December 15, 2024 1:46pm Current every day smoker Unknown December 15, 2024 1:46pm Depression Unknown December 15 1:46pm Diabetes mellitus with neuropathy Unknown December 15, 2024 1:46pm Insulin dependent diabetes mellitus Unknown December 15, 2024 1:46pm Lumbar spondylosis Unknown December 15, 2024 1:46pm PAD (peripheral artery disease) Unknown December 15, 2024 1:46pm Post-menopausal Unknown December 15 1:46pm Screening for breast cancer Unknown 2024 1:46pm Screening for lung cancer Unknown December 15, 2024 1:46pm Screening for osteoporosis Unknown 2024 1:46pm Wound of foot Unknown December 15 1:46pm Class 1 obesity with body ma ss index (BMI) of 30.0 to 30.9 in adult Unknown January 05, 2025 1:23pm Dietary counseling and surveillance Unknown January 05, 2025 1:23pm Hyperlipidemia Unknown January 05, 2 025 1:23pm Hypertension Unknown January 05, 2 025 1:23pm Peripheral neuropathy Unknown January 05, 2025 1:23pm Type 2 diabetes mellitus Unknown er 2024 1:23pm [facility] B [facility] 1:[facility] Current every day smoker Unknown er 2024 2:19pm Depression Unknown January 12, 2025 2:19pm Lesion of spleen Unknown January 12, 2025 2:19pm Assessments Diagnosis Onset Date Resolution Status Admit Date Allergy to honey bee venom acute December 15, 2024 1:46pm Atrial fibrillation acute Augus t 2024 1:46pm Current every day smoker acute December 15, 2024 1:46pm Depression acute December 15, 025 1:46pm Diabetes mellitus with neuropathy acute December 15 1:46pm Insulin dependent diabetes mellitus acute December 15 1:46pm Lumbar spondylosis acute December 15, 2024 1:46pm PAD (peripheral artery disease) acut e December 15, 2024 1:46pm Post-menopausal acute December 152024 1:46pm Screening for breast cancer acute December 15, 2024 1:46pm Screening for lung cancer acute December 15, 2024 1:46pm Screening for osteoporosis acute December 15, 2024 1:46pm Wound of foot acute November 1:46pm Class 1 obesity with body ma ss index (BMI) of 30.0 to 30.9 in adult acute January 05 025 1:23pm Dietary counseling and surveillance acute January 05 025 1:23pm Hyperlipidemia acute January 05, 2025 1:23pm Hypertension acute December 1:23pm Peripheral neuropathy acute Sep tember 2024 1:23pm Type 2 diabetes mellitus acute January 05, 2025 1:23pm Vitamin B 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 S eptember 2024 1:23pm Current every day smoker acute January 12, 2025 2:19pm Depression acute December 2:19pm Lesion of spleen acute Decembe r 2024 2:19pm Plan of Treatment Author Shantel Norton [facility] Authored December 16, 2024 11 :14am Patient is not suicidal or h omicidal at this time. Discussed treatment options with patient today. It was decided in collaboration with the patient to start sertraline and wean off the Wellbutrin daily for management with depression/anxiety. Medication profile and possible SE reviewed with patient today. Patient to take medication as directed and prescribed. Do not skip/miss doses and do not stop abruptly. Patient is not interested in counseling at this time. Warning s/s reviewed with patient today. Patient to go immediately to the ER should patient experience any of these. Follow up in 4 weeks to assess symptoms and medication effectiveness. Patient verbalizes understanding and agrees to treatment plan. Allergy to bees -- given Epi pen We discussed possible complications of smoking including risk of heart disease, stroke, lung disease, and increase risk of cancer. Your goal is to quit smoking. The availability, risks, and benefits of medication used to treat nicotine addiction as relevant to you have been discussed. We are working together to achieve these goals with the following plan; barriers to these goals have been discussed. You have been given relevant education handouts and a summary of your care plan. Your next follow-up visit for this problem is six months, we will continue to ask progress for quitting and willingness to quit at each appointment. Follows with Dr. Avilez and Pain management through [facility]. Patient is postmenopausal and therefore at risk for osteoporosis. Risks and benefits of DEXA scan discussed with patient today. She is due for DEXA scan. Patient is interested in getting a DEXA scan today. DEXA scan ordered today. Patient is a current smoker, age 69, asymptomatic, actual pack year (number of years):50 years - 1pack per day. Patient has participated in a shared decision making session during which benefits and potential risks of CT lung screening were discussed, as well as follow-up diagnostic testing, over-diagnosis, false positive rates and radiation exposure. The patient was informed of the importance of adherence to annual screening, impact of comorbidities, and ability/willingness to undergo diagnosis and treatment. The patient was informed of the importance of smoking cessation and/or maintaining smoking abstinence, including the off of Medicare covered tobacco cessation counseling services, if applicable. Code G0296 Follows with Angelique Russell [employer] Trainee for diabetes management Follows with wound care at the [facility] every 2-[address] Martinez Follows with vascular once per year. Reviewed most recent office note Follows with Dr. Kincaid - neurology currently taking Lyrica. Pt is on Eliquis. Atrial fibrillation is currently stable, Unaware of palpitations, or shortness of breath. No chest pain. Follows with Cardiology. Patient is due for her routine yearly screening mammogram. Screening mammogram ordered today. Author Angelique Russell [facility] Authored January 05, 2025 2:50pm Type 2 diabetes mellitus Clinical Notes: 1. Uncontrolled, a Type 2 diabetes with A1c of 8.6% 2. Blood glucose levels above target. According to cgm download 12/22-01/04/25: AVG SG 194. >250- 17%, >180-27%, 70-180-56%, <70-0%, <54-0%. CV 29.1%, GMI -%. Reviewed download w/ no incidence of hypoglycemia. Glucose above target fasting am/meal to meal. Pt admits to missed corrective insulin dosing but reports is taking other diabetes medications consistently. Recommend pt scan cgm tommy, amaya, reviewed humalog corrective dosing. Continue: metformin 500 mg 1 po bid jardiance 25mg po qd ozempic 2 mg sq once weekly increase Toujeo 22 to 23 units qam, humalog 1:40 tommy, hs. Reviewed with pt how to titrate basal insulin according to fasting am glucose. Brent cgm pt adherent and benefitting from use Note: stopped pioglitizone d/t edema lower extremities 3. Patient is alert, oriented and receptive to making changes or counseling Notes: Seen for an assessment of current glucose pattern, changes in treatment plan, time was spent counseling and coordination of care related to diabetes, risks, and benefits of treatment, medications, and side effects. TOPICS REVIEWED: 1. Time was spent reviewing: a. Basic concepts of diabetes, progressive beta cell , concepts of basal/bolus/corrective insulin requirements. Basal: The goal is fasting blood glucose of 90-130mg. If fasting blood glucose starts to run under [...] 100-150mg range b. Nutrition: Concepts of healthy diet reviewed, encouraged to decrease saturated fat in diet [...] back meals reveal effectiveness of bolus dosing. 5. [facility]. Contact office if any issues or concerns with patterns of hypoglycemia, hyperglycemia, or diabetes medication issues. 6. Prescriptions: DEMETRIUS Martinez- metformin sent. 7. Prescriptions will not be filled unless you are compliant with follow up appointments or have a follow up appointment scheduled as ordered by your provider. Refills should be requested at the time of your visit. 8. Keep f/u w/ wound clinic for wound bottom right foot controlled, managed by pcp 2024 ADA Guidelines- target blood pressure < 130/80, if it can be safely attained. 06/23 ldl 34, trig 162 -on statin; managed by pcp 2024 ADA guidelines- people with Diabetes age 40-75 at higher CV risk including those with one or more additional ASCVD risk factors, high intensity statin therapy recommended to reduce ldl by >50% of baseline and to obtain goal ldl <70 2024 ADA guidelines- people with Diabetes age 40-75 moderate-intensity statin therapy in those without ASCVD risk factors 11/19 vit b 12 306 keep f/u with neurology see above see above Author Shantel Norton [facility] Authored January 12, 2025 3:00pm Discussed with pt and her amna virk will proceed with further imaging of the spleen and will call with results and further recommendations. Patient is not suicidal or homicidal at this time. Discussed treatment options with patient today. It was decided in collaboration with the patient to increase sertraline and wean off the Wellbutrin daily for management with depression/anxiety. Medication profile and possible SE reviewed with patient today. Patient to take medication as directed and prescribed. Do not skip/miss doses and do not stop abruptly. Patient is not interested in counseling at this time. Warning s/s reviewed with patient today. Patient to go immediately to the ER should patient experience any of these. Follow up in 3 months to assess symptoms and medication effectiveness. Patient verbalizes understanding and agrees to treatment plan. We discussed possible complications of smoking including risk of heart disease, stroke, lung disease, and increase risk of cancer. Your goal is to quit smoking. The availability, risks, and benefits of medication used to treat nicotine addiction as relevant to you have been discussed. We are working together to achieve these goals with the following plan; barriers to these goals have been discussed. You have been given relevant education handouts and a summary of your care plan. Your next follow-up visit for this problem is six months, we will continue to ask progress for quitting and willingness to quit at each appointment. Future Tests Future scheduled test information is unavailable Pending Tests Test Name Ordered Date Scheduled Date XR dexa axial skeleton December 16, 2024 10:38am CT lung screening December 16, 2024 10:38am MM screening mammo BI w/CAD December 16, 2024 10 :38am Future Visits Future appointment information is unavailable Referrals to Other Providers Referral information is unavailable Future Procedures Procedure Name Ordered Date Scheduled Date US spleen January 12, 2025 2:40pm Future Medications Future medication information is unavailable Patient Instructions Instruction Admit Date Diabetes and heart disease December 1:23pm
--- OUTSIDE RECORDS SUMMARY | 2025-01-13 10:14 | XMS_ITS | Encounter Summary ---
Author Organization [facility] Address [address] [facility] [address] [place] [address] Care Team Providers Care Beehive Kiln Charcoal Burner Name Role Phone Sandra Lewis Primary Care Provider [phone] Sandra Lewis DO Primary Care Provider [phone] Encounter Details Date Type Department Care Team (Late Contact Info) Description 12/13/2023 Orders Only [facility] Neu[facility] [address] [place] [address] Luan Kincaid MD [address] [place] [address] Social History Tobacco Use Types Packs/Day Years [...] Department Care Team (Late Contact Info) Description 01/19/2025 4:00 PM EDT [facility] [address] [facility] [address] [place] [address] Luan Kincaid MD [address] [place] [address] documented as of this encounter Visit Diagnoses Not on filedocumented in this encounter Care Teams Beehive Kiln Charcoal Burner Relationship Specialty Start Date End Date Sandra Lewis DO PCP - General Family Medicine 01/09/23 10/14/24 Sandra Lewis DO [address] [place] [address] PCP - General Family Medicine 10/15/24 documented as of this encounter
--- OUTSIDE RECORDS SUMMARY | 2025-01-13 10:14 | XMS_ITS | Clinical Summary ---
Author Organization [facility] Address [address] [place] [address] Phone Care Team Providers Care Top Case Assembler Name Role Phone Shantel Norton APRN-MACHINIST HELPER Primary Care Pro vider Allergies Active Allergy Reactions Criticality Noted Date [...] once daily. 10/16/19 24 Active insulin glargine (Toujeo Solostar- 1 unit dial) [...] Active Problems Problem Noted Date Diagnosed Date Obesity (BMI 30-39.9) 12/16/2023 Typical atrial flutter (Multi) 10/07/2023 Nonischemic cardiomyopathy [...] Problem Noted Date Diagnosed Date Resolved Date High risk medication use 11/13/202306/2024 BMI 28.0-28.9,adult 10/07/2023 12/16/19 24 Encounters Date Type Department Care Team Description 12/30/2024 1:40 PM EDT Office Visit [place] [address] [address] Roland Faust MD Typical atrial flutter (Multi) (Primary Dx); Nonischemic cardiomyopathy (Multi); Hypertension, unspecified type; Hypercholesteremia; Obesity (BMI 30-39.9); Current smoker Discharge Disposition: Home 12/30/2024 Travel 2024 Scanned Document [facility] [address] [employer] [place] [address] Scanning, Generic Provider 11/23/2024 Scanned Document [facility] [address] [employer] [place] [address] Scanning, Generic Provider from Last 3 Months Family History Medical [...] Mass Index 30.85 12/30/2024 1:47 PM EDT Plan of Treatment Upcoming Encounters Date Type Department Care Team (Late st Contact Info) Description 08/17/2025 3:10 PM EDT Office Visit [facility] [address] [facility] [address] [place] [address] Roland Faust MD [address] [facility] [address], [address] [place] [address] Health Maintenance Due Date Last [...] 06/10/2020 Bone Density Scan 2022 COVID-19 Vaccine (1 - 2023-2 5 season) 2024 Influenza Vaccine (#1) 2024 MMR Vaccines Completed [...] DUAL COMPLETE MEDICAID DUAL COMPLETE Care Teams Top Case Assembler Relationship Specialty Start Date End Date Shantel Norton APRN-JAYSON [address] [place] [address] PCP - General Family Medicine 12/30/24
--- OUTSIDE RECORDS SUMMARY | 2025-01-13 10:14 | XMS_ITS | Encounter Summary ---
Author Organization [facility] Address [address] [facility] [address] [place] [address] Care Team Providers Care Stock Tracer Name Role Phone Sandra Lewis Primary Care Provider [phone] Sandra Lewis DO Primary Care Provider [phone] Encounter Details Date Type Department Care Team (Late Contact Info) Description 12/17/2023 External Result Encounter [facility] External Department Unsolicited Luan Kincaid MD [address] [place] [address] [id number] Social History Tobacco Use Types Packs/Day Years [...] Upcoming Encounters Date Type Department Care Team (Special Care Hospital Contact Info) Description 01/19/2025 4:00 PM EDT Office Visit [facility] [address] [place] [address] Luan Kincaid MD [address] [place] [address] [phone] (work) documented as of this encounter Procedures Procedure [...] Luan Bowling M.D.12/17/2023 12:50 PM Dictation Location: [place] [address] Transcribed By: [facility] 12/17/23 1250 Dictated By: Luan Bowling II, MD 12/17/23 1240 Signed By: <Electronically signed by Luan Bowling II, MD in OV> 12/17/23 1250 Narrative 12/17/2023 12:53 PM EDT [facility] [place] [address] MRI Report Signed Patient: Kerry Gay MR#: [id number] [birth year] : 1955 Acct:[id number] Age/Sex: 68 / F ADM Date: 12/17/23 Loc: [facility] Room: Type: [facility] Attending Dr: Luan Kincaid MD Copies to: Luan Kincaid MD Ordering Provider: Luan Kincaid MD Date of Service: 12/17/23 MR/MR lumbar spine wo con: m54.17 ([id number]) XR/XR pre/post mri xray: post MRI lumbar [...] con Procedure Note Radiology, Radiologist, - 12/17/2023 [facility] [place] [address] [place] [address] MRI Report Signed Patient: Kerry Gay CMR#: [id number] [birth year] : 8Acct:[id number] Age/Sex: 68 / FADM Date: 12/17/23 Loc: [facility] Room:Type: [facility] CLI Attending Dr: Luan Kincaid MD Copies to: Luan Kincaid MD Ordering Provider: Luan Kincaid MD Date of Service: 12/17/23 MR/MR lumbar spine wo con: m54.17 ([id number]) XR/XR pre/post mri xray: post MRI lumbar [...] Luan Bowling M.D.12/17/2023 12:50 PM Dictation Location: [place] [address] Transcribed By: [facility] 12/17/23 1250 Dictated By: Luan Bowling II, MD 12/17/23 1240 Signed By: <Electronically signed by Luan Bowling II, MD inOV> 12/17/23 1250 Luan Kincaid MD IMG MRI PROCEDURES Final Result documented in this encounter Visit Diagnoses Not on filedocumented in this encounter Care Teams Stock Tracer Relationship Specialty Start Date End Date Sandra Lewis DO PCP - General Family Medicine 01/09/23 10/14/24 Sandra Lewis DO [address] [place] [address] PCP - General Family Medicine 10/15/24 documented as of this encounter
--- OUTSIDE RECORDS SUMMARY | 2025-01-13 10:14 | XMS_ITS | Encounter Summary ---
Author Organization [facility] Address [address] [place] [address] Care Team Providers Care Welfare Supervisor Name Role Phone Sandra Lewis DO Primary Care Provider [phone] Encounter Details Date Type Department Care Team (Latest Contact Info) Description 12/31/2024 Travel Social History Tobacco Use Types Packs/Day [...] Description 01/19/2025 4:00 PM EDT Office Visit [facility] Neurology [address] [facility] [address] [place] [address] Luan Kincaid MD [address] [facility] [address] [place] [address] documented as of this encounter Visit Diagnoses Not on filedocumented in this encounter Care Teams Welfare Supervisor Relationship Specialty Start Date End Date Sandra Lewis DO [address] [facility] [place] [address] PCP - General Family Medicine 10/15/24 documented as of this encounter
--- OUTSIDE RECORDS SUMMARY | 2025-01-13 10:15 | XMS_ITS | Encounter Summary ---
Author Organization [facility] Address [address] [place] [address] Phone Care Team Providers Care Electric Arc Furnace Operator Name Role Phone Millie Lewisriluciano Fernandez DO Primary Care Provider [phone] Shantel Norton REFRIGERATING TECHNICIAN-BAND MANAGER Primary Care Pro vider Encounter Details Date Type Department Care Team (Late Contact Info) Description 11/12/2023 Scanned Document [facility] [address] [place] [address] Scanning, Generic Provider Social History Tobacco Use [...] Department Care Team (Late Contact Info) Description 08/17/2025 3:10 PM EDT Office Visit [place] [address] [facility] [address] [place] [address] Roland Faust MD [address] [facility] [address], [address] [place] [address] documented as of this encounter Visit Diagnoses Not on filedocumented in this encounter Additional Health Concerns Assessment Noted Time A fall risk assessment has been complete d for the patient 10/07/2023 9:51 AM EDT documented as of this encounter Care Teams Electric Arc Furnace Operator Relationship Specialty Start Date End Date Sandra Lewis DO [address] [place] [address] PCP - General Family Medicine 09/25/23 12/29/24 Shantel Norton APRN-BAND MANAGER [address] [place] [address] PCP - General Family Medicine 12/30/24 documented as of this encounter
--- OUTSIDE RECORDS SUMMARY | 2025-01-13 10:15 | XMS_ITS | Encounter Summary ---
Author Organization [facility] Address [address] [place] [address] Phone Care Team Providers Care Manager Grant Name Role Phone Sandra Lewis DO Primary Care Provider [phone] Shantel Norton AUTOMOBILE CARPETS MOLDER-BUSINESS BROKER Primary Care Pro vider Encounter Details Date Type Department Care Team (Late Contact Info) Description 12/02/2023 Scanned Document [facility] [address] [place] [address] Scanning, Generic Provider Social History Tobacco Use [...] Description 08/17/2025 3:10 PM EDT Office Visit [place] [address] [facility] [address] [place] [address] Roland Faust MD [address] [facility] [address], [address] [place] [address] documented as of this encounter Visit Diagnoses Not on filedocumented in this encounter Additional Health Concerns Assessment Noted Time A fall risk assessment has been complete d for the patient 11/13/2023 1:54 PM EDT documented as of this encounter Care Teams Manager Grant Relationship Specialty Start Date End Date Sandra Lewis DO [address] [place] [address] PCP - General Family Medicine 09/25/23 12/29/24 Shantel Norton APRN-BUSINESS BROKER [address] [place] [address] PCP - General Family Medicine 12/30/24 documented as of this encounter
--- OUTSIDE RECORDS SUMMARY | 2025-01-13 10:15 | XMS_ITS | Encounter Summary ---
Author Organization [facility] Address [address] [place] [address] Phone Care Team Providers Care Hospital Wellness Coordinator Name Role Phone Sandra Lewis DO Primary Care Provider [phone] Shantel Norton SEWING MACHINE MAINTENANCE MECHANIC-EXCAVATOR OPERATOR Primary Care Pro vider Encounter Details Date Type Department Care Team (Late st Contact Info) Description 11/23/2024 Scanned Document [facility] [address] [place] [address] Scanning, Generic Provider Social History Tobacco Use [...] Description 08/17/2025 3:10 PM EDT Office Visit [place] [address] [facility] [address] [place] [address] Roland Faust MD [address] [facility] 2, [address] [place] [address] documented as of this encounter Visit Diagnoses Not on filedocumented in this encounter Additional Health Concerns Assessment Noted Time A fall risk assessment has been complete d for the patient 06/26/2024 9:48 AM EST documented as of this encounter Care Teams Hospital Wellness Coordinator Relationship Specialty Start Date End Date Sandra Lewis DO [address] [facility] [place] [address] PCP - General Family Medicine 09/25/23 12/29/24 Shantel Norton, NITZA-EXCAVATOR OPERATOR [address] [facility] [place] [address] PCP - General Family Medicine 12/30/24 documented as of this encounter
--- OUTSIDE RECORDS SUMMARY | 2025-01-13 10:15 | XMS_ITS | Patient Health Record ---
Author Organization [facility] Address [address] [place] [address] Care Team Providers Care Awning Craftsman Name Role Phone Dr. Edgar Garcia Primary Care Provider Reason For Referral No Information Plan Of Treatment No Information Insurance Providers Payer Name Payer Address Payer Phone Subscriber Number Group Number Insured Name Patient Relationship to Insured Coverage Start Date Coverage End Date MEDICARE CGS 1 [place] [address] [id number] TAYE MARCOS Self - patient is the insured 1 MEDICAID [facility] TO [facility] [address] [place] [address] [phone] [id number] TAYE MARCOS Self - patient is the insured 1 DENTAL MEDICAID [place] [address] [place] [address] [id number] TAYE MARCOS Self - patient is the insured 1
--- OUTSIDE RECORDS SUMMARY | 2025-01-13 10:15 | XMS_ITS | Clinical Summary ---
Author Organization [facility] Address [address] [place] [address] Care Team Providers Care Front Desk Representative Name Role Phone Darrell Weinstein Primary Care Provider [phone] Nereida Castro MD Unavailable [phone] Allergies Active Allergy Reactions Criticality Noted [...] Date Smoking Tobacco: Every Day Cigarettes 1 50.7 Started: 1972 Smokeless Tobacco: Never Alcohol Use Standard Drinks/Week Comments Not Currently 0 (1 standard drink = 0.6 oz pur e alcohol) Area Deprivation Index Answer Date Steffen rded National Score (1-100), lower number is lower ri sk Not on file 04/03/2020 State Score (1-10), lower number is lower risk N ot on file 04/03/2020 Data from: https://www.neighborhoodatlas.medicine.[facility]/. Last address used [...] COMP METABOLIC PANEL (12/17/2018 3:05 PM EDT) [facility] Protein, Total 7.6 6.3 - 8.0 g/dL 12/18/2018 3:35 AM [facility] Albumin 4.2 3.9 - 4.9 g/dL 12/18/2018 3:35 AM [facility] Calcium 10.6(H) 8.5 - 10.2 mg/dL 12/18/2018 3:35 AM [facility] Bilirubin, Total 0.3 0.2 - 1.3 mg/dL 12/18/2018 3:35 AM [facility] Alkaline Phosphatase 88 34 - 123 U/L 12/18/2018 3:35 AM [facility] AST 28 13 - 35 U/L 12/18/2018 3:35 AM [facility] Glucose 89 74 - 99 mg/dL 12/18/2018 3:35 AM [facility] Comment: The [place] Diabetes Association (ADA) provides guidance for cutoff [...] Standards of Medical Care in Diabetes 2016, [place] Diabetes Association. Diabetes Care. 2016.39(Suppl 1). BUN 10 7 - 21 mg/dL 12/18/2018 3:35 AM [facility] Creatinine 0.73 0.58 - 0.96 mg/dL 12/18/2018 3:35 AM [facility] Sodium 138 136 - 144 mmol/L 12/18/2018 3:35 AM [facility] Potassium 4.4 3.7 - 5.1 mmol/L 12/18/2018 3:35 AM [facility] Chloride 100 97 - 105 mmol/L 12/18/2018 3:35 AM EDT [facility] CO2 21(L) 22 - 30 mmol/L 12/18/2018 3:35 AM EDT [facility] Anion Gap 17 9 - 18 mmol/L 12/18/2018 3:35 AM EDT [facility] ALT 22 7 - 38 U/L 12/18/2018 3:35 AM EDT [facility] eGFR- >60 12/18/2018 3:35 AM EDT [facility] eGFR-All Other Races >60 . 12/18/2018 3:35 AM EDT [facility] Comment: eGFR (Estimated GFR) Units of [...] EDT 12/17/2018 3:07 PM EDT Shantel Celestin APRN.ENVIRONMENTAL DESIGNER LABORATORY Final R esult [facility] [address] [place] [address] [facility] [address] [place] [address] from Last 3 Months or Most Recently Relevant to Health Maintenance Insurance [facility] MEDICARE ADVANTAGE HMO Care Teams Front Desk Representative Relationship Specialty Start Date End Date Darrell Weinstein [address] [facility] [address] [place] [address] PCP - General Family Medicine 11/06/18 Nereida Castro MD [address] [facility] [address] [place] [address] Referring Obstetrics 11/06/18
--- OUTSIDE RECORDS SUMMARY | 2025-01-13 10:15 | XMS_ITS | Encounter Summary ---
Author Organization [facility] Address [address] [place] [address] Phone Care Team Providers Care Curtain Cleaner Name Role Phone Sandra Lewis DO Primary Care Provider [phone] Shantel Norton CELL SUPPORT OPERATOR-PARKING CASHIER Primary Care Pro vider Encounter Details Date Type Department Care Team (Late Contact Info) Description 01/06/2024 Scanned Document [facility] [address] [place] [address] Scanning, Generic Provider Social History Tobacco Use [...] Description 08/17/2025 3:10 PM EDT Office Visit [facility] [address] [facility] [address] [place] [address] Roland Faust MD 703 [facility] 2, [address] [place] [address] Scheduled Orders Name Type Priority Associated Diagnoses Orde r Schedule Ultrasound- OnBase Scan Imaging O rdered: 01/06/2024 documented as of this encounter Visit Diagnoses Not on filedocumented in this encounter Additional Health Concerns Assessment Noted Time A fall risk assessment has been complete d for the patient 12/16/2023 10:41 AM EDT documented as of this encounter Care Teams Curtain Cleaner Relationship Specialty Start Date End Date Sandra Lewis DO [address] [place] [address] PCP - General Family Medicine 09/25/23 12/29/24 Shantel Norton APRN-PARKING CASHIER [address] [place] [address] PCP - General Family Medicine 12/30/24 documented as of this encounter
--- OUTSIDE RECORDS SUMMARY | 2025-01-13 10:15 | XMS_ITS | Encounter Summary ---
Author Organization [facility] Address [address] [place] [address] Phone Care Team Providers Care Child Adolescent Care Name Role Phone Sandra Lewis DO Primary Care Provider [phone] Shantel Norton PERSONAL LINES SALES REP-PHOTOGRAPH MOUNTER Primary Care Pro vider Encounter Details Date Type Department Care Team (Late st Contact Info) Description 11/09/2023 Scanned Document [facility] [address] [place] [address] Scanning, Generic Provider Social History Tobacco Use [...] Description 08/17/2025 3:10 PM EDT Office Visit [place] [id number] [facility] [address] [place] [address] Roland Faust MD 703 [facility] 2, [address] [place] [address] documented as of this encounter Visit Diagnoses Not on filedocumented in this encounter Additional Health Concerns Assessment Noted Time A fall risk assessment has been complete d for the patient 10/07/2023 9:51 AM EDT documented as of this encounter Care Teams Child Adolescent Care Relationship Specialty Start Date End Date Sandra Lewis DO 2520 [facility] [place] [address] PCP - General Family Medicine 09/25/23 12/29/24 Shantel Norton, NITZA-PHOTOGRAPH MOUNTER 1255 [facility] [place] [address] PCP - General Family Medicine 12/30/24 documented as of this encounter
--- OUTSIDE RECORDS SUMMARY | 2025-01-13 10:15 | XMS_ITS | Encounter Summary ---
Author Organization [facility] Address [address] [place] [address] Phone Care Team Providers Care Body Maker Name Role Phone Sandra Lewis DO Primary Care Provider [phone] Shantel Norton HEALTH ADVOCATE-OCULAR CARE AIDE Primary Care Pro vider Encounter Details Date Type Department Care Team (Late Contact Info) Description 11/11/2023 Scanned Document [facility] [address] [place] [address] Scanning, Generic Provider Social History Tobacco Use [...] Description 08/17/2025 3:10 PM EDT Office Visit [place] 307543 [facility] [address] [place] [address] Roland Faust MD 703 [facility] 2, [address] [place] [address] documented as of this encounter Visit Diagnoses Not on filedocumented in this encounter Additional Health Concerns Assessment Noted Time A fall risk assessment has been complete d for the patient 10/07/2023 9:51 AM EDT documented as of this encounter Care Teams Body Maker Relationship Specialty Start Date End Date Sandra Lewis DO [address] [place] [address] PCP - General Family Medicine 09/25/23 12/29/24 Shantel Norton APRN-OCULAR CARE AIDE [address] [place] [address] PCP - General Family Medicine 12/30/24 documented as of this encounter
--- OUTSIDE RECORDS SUMMARY | 2025-01-13 10:15 | XMS_ITS | Encounter Summary ---
Author Organization [facility] Address [address] [place] [address] Phone Care Team Providers Care Furnace Charging Machine Operator Name Role Phone Sandra Lewis DO Primary Care Provider [phone] Shantel Norton COSMETIC COUNSELOR-INDEPENDENT FILM MAKER Primary Care Pro vider Encounter Details Date Type Department Care Team (Late Contact Info) Description 07/22/2024 Scanned Document [facility] [address] [place] [phone] Scanning, Generic Provider Social History Tobacco Use [...] suspected to have Coronavirus/COVID-19? No / Unsure 06/26/2024 9:29 AM EST documented as of this encounter Plan of Treatment Upcoming Encounters Date Type Department Care Team (Late Contact Info) Description 08/17/2025 3:10 PM EDT Office Visit [facility] 703 [facility] [address] [place] [address] Roland Faust MD 703 [facility] 2, [address] [place] [address] Scheduled Orders Name Type Priority Associated Diagnoses Orde r Schedule Ultrasound- OnBase Scan Imaging O rdered: 07/22/2024 documented as of this encounter Visit Diagnoses Not on filedocumented in this encounter Additional Health Concerns Assessment Noted Time A fall risk assessment has been complete d for the patient 06/26/2024 9:48 AM EST documented as of this encounter Care Teams Furnace Charging Machine Operator Relationship Specialty Start Date End Date Sandra Lewis DO 25[address] [place] [address] PCP - General Family Medicine 09/25/23 12/29/24 Shantel Norton APRN-INDEPENDENT FILM MAKER [address] [place] [address] PCP - General Family Medicine 12/30/24 documented as of this encounter
--- OUTSIDE RECORDS SUMMARY | 2025-01-13 10:15 | XMS_ITS | Encounter Summary ---
Author Organization [facility] Address [address] [place] [address] Phone Care Team Providers Care Television Actor Name Role Phone Sandra Lewis DO Primary Care Provider [phone] Shantel Norton HEAD STOCK TRANSFER CLERK-COMPUTER TRAINER Primary Care Pro vider Encounter Details Date Type Department Care Team (Late st Contact Info) Description 04/28/2024 Scanned Document [facility] [address] [place] [address] Scanning, Generic Provider Social History Tobacco Use [...] Description 08/17/2025 3:10 PM EDT Office Visit [facility] 703 [facility] 250 [place] [address] Roland Faust MD 703 [facility] 2, [address] [place] [address] documented as of this encounter [...] documented as of this encounter Care Teams Television Actor Relationship Specialty Start Date End Date Sandra Lewis DO [address] [place] [address] PCP - General Family Medicine 09/25/23 12/29/24 Shantel Norton APRN-COMPUTER TRAINER 1255 [facility] [place] [address] PCP - General Family Medicine 12/30/24 documented as of this encounter
--- OUTSIDE RECORDS SUMMARY | 2025-01-13 10:15 | XMS_ITS | Encounter Summary ---
Author Organization [facility] Address [address] [place] [address] Phone Care Team Providers Care Clipman Name Role Phone Sandra Lewis DO Primary Care Provider [phone] Shantel Norton FRESH MEAT GRADER-FRAME CATCHER Primary Care Pro vider Encounter Details Date Type Department Care Team (Late Contact Info) Description 2023 Scanned Document [facility] [address] [place] [address] Scanning, Generic Provider Social History Tobacco Use [...] Description 08/17/2025 3:10 PM EDT Office Visit [place] [address] [facility] [address] [place] [address] Roland Faust MD 703 [facility] 2, [address] [place] [address] documented as of this encounter Visit Diagnoses Not on filedocumented in this encounter Additional Health Concerns Assessment Noted Time A fall risk assessment has been complete d for the patient 11/13/2023 1:54 PM EDT documented as of this encounter Care Teams Clipman Relationship Specialty Start Date End Date Sandra Lewis DO 25[address] [place] [address] PCP - General Family Medicine 09/25/23 12/29/24 Shantel Norton APRN-FRAME CATCHER [address] [place] [address] PCP - General Family Medicine 12/30/24 documented as of this encounter
--- OUTSIDE RECORDS SUMMARY | 2025-01-13 10:15 | XMS_ITS | Encounter Summary ---
Author Organization [facility] Address [address] [place] [address] Phone Care Team Providers Care Procurement Clerk Name Role Phone Millie Lewisriluciano Fernandez DO Primary Care Provider Shantel Norton CUSTOMER SERVICE ANALYST-COTTON GRADER Primary Care Pro vider Encounter Details Date Type Department Care Team (Late Contact Info) Description 11/10/2023 Scanned Document [facility] [address] [place] [address] Scanning, Generic Provider Social History Tobacco Use [...] Description 08/17/2025 3:10 PM EDT Office Visit [place] 354[address] [facility] [address] [place] [address] Roland Faust MD 703 [facility] 2, [address] [place] [address] documented as of this encounter [...] documented as of this encounter Care Teams Procurement Clerk Relationship Specialty Start Date End Date Sandra Lewis DO [address] [place] [address] PCP - General Family Medicine 09/25/23 12/29/24 Shantel Norton, NITZA-COTTON GRADER [address] [place] [address] PCP - General Family Medicine 12/30/24 documented as of this encounter
--- OUTSIDE RECORDS SUMMARY | 2025-01-13 10:15 | XMS_ITS | Encounter Summary ---
Author Organization [facility] Address [address] [place] [address] Phone Care Team Providers Care Speech Teacher Name Role Phone Sandra Lewis DO Primary Care Provider [phone] Shantel Norton COMPUTER APPLICATIONS DEVELOPER-CHEF & OWNER Primary Care Pro vider Encounter Details Date Type Department Care Team (Late st Contact Info) Description 09/12/2023 Scanned Document [facility] [address] [place] [address] Scanning, Generic Provider Social History Tobacco Use [...] Description 08/17/2025 3:10 PM EDT Office Visit [facility] 703 [facility] [address] [place] [address] Roland Faust MD 703 [facility] 2, [address] [place] [address] documented as of this encounter [...] on filedocumented in this encounter Care Teams Speech Teacher Relationship Specialty Start Date End Date Sandra Lewis DO 2520 [facility] [place] [address] PCP - General Family Medicine 09/25/23 12/29/24 Shantel Norton APRN-CHEF & OWNER [address] [place] [address] PCP - General Family Medicine 12/30/24 documented as of this encounter
--- OUTSIDE RECORDS SUMMARY | 2025-01-13 10:15 | XMS_ITS | Encounter Summary ---
Author Organization [facility] Address [address] [place] [address] Phone Care Team Providers Care Irrigator Sprinkling System Name Role Phone Shantel Norton Primary Care Pro vider Encounter Details Date Type Department Care Team (Latest Contact Info) Description 12/30/2024 Travel Social History Tobacco Use Types Packs/Day [...] Description 08/17/2025 3:10 PM EDT Office Visit [place] [address] [address] Roland Faust MD 703 [facility] 2, [address] [place] [address] documented as of this encounter Visit Diagnoses Not on filedocumented in this encounter Additional Health Concerns Assessment Noted Time A fall risk assessment has been complete d for the patient 06/26/2024 9:48 AM EST documented as of this encounter Care Teams Irrigator Sprinkling System Relationship Specialty Start Date End Date Shantel Norton APRN-CNP [address] [place] [address] PCP - General Family Medicine 12/30/24 documented as of this encounter
--- OUTSIDE RECORDS SUMMARY | 2025-01-13 10:15 | XMS_ITS | Clinical Summary ---
Author Organization [facility] Address [address] [place] [address] Care Team Providers Care Bulker Name Role Phone Sandra Lewis DO Primary Care Provider [phone] Allergies Active Allergy Reactions Criticality Noted Date Comments Sulfa Antibiotics GI intolerance,Unknown 2018 Medications Continuous Blood Gluc Sensor (Video FurnaceStyle Brent 14 Day Sensor) [facility] apply 1 SENSOR as directed every 14 days use with DEVICE to MONIT... (REFER TO PRESCRIPTION NOTES). 3 Active Toujeo SoloStar 300 UNIT/ML injection inject 20 units subcutaneously as directed 3 Active Droplet Pen [place] 32G X 4 MM [facility] use 1 PEN NEEDLE to inject MEDICATION subcutaneously five times a day 2 Active omeprazole (PriLOSEC) [address] capsule 3 Active Ozempic, 1 MG/DOSE, 4 MG/3ML solution pen-injector Administer 1mg subcutaneously once weekly 3 Active simvastatin (Zocor) 40 MG tablet Take 40 mg by mouth at bedtime 3 Active Jardiance 25 MG take 1 tablet orally once daily Active Docusate Sodium (DSS) 100 MG capsule Take 100 mg by mouth in the morning and 100 mg in the evening. 4 Active folic acid (Folvite) 1 MG tablet Take 1,000 mcg by mouth Daily 4 Active Eliquis 5 MG tablet Take 5 mg by mouth in the morning and 5 mg before bedtime. Active aspirin 81 MG EC tablet Take 81 mg by mouth in the morning. Active metFORMIN (Glucophage) 500 MG tablet Take 500 mg by mouth 4 Active cyanocobalamin (Vitamin B-12) 2500 MCG tablet 4 Active magnesium oxide (Mag-Ox) 400 (240 Mg) MG tablet Take 400 mg by mouth in the morning and 400 mg before bedtime. 4 Active carvedilol (Coreg) 12.5 MG tablet Take 12.5 mg by mouth in the morning and 12.5 mg in the evening. Take with meals. 4 025 Active donepezil (Aricept) 10 MG tabletIndicati ons:Cognitive decline 2 tabs QAM 60 tablet 5 5 Active memantine (Namenda) 10 MG tabletIndicati ons:Cognitive decline 1 tab BID 60 tablet 5 5 Active nortriptyline (Pamelor) 25 MG capsuleIndicat ions:Neurogeni c pain Take 1 capsule (25 mg) by mouth at bedtime 30 capsule 5 5 025 Active pregabalin (Lyrica) 300 MG capsuleIndicat ions:Neurogeni c pain TAKE 1 CAPSULE BY MOUTH TWICE A DAY 60 capsule 3 5 Active Active Problems Problem Noted Date Diagnosed [...] 3:08 PM EDT): (Continue current regimen.) Get [facility] records - neuro consults, EEG, MR, carotids, echo, discharge summary. Assessment & Plan (04/07/2024 2:16 PM EST): Pt to retry donepezil 15 qam (or 10/5). Assessment & Plan (02/25/2024 2:59 PM EDT): Add memantine 10 -> bid. Then add donepezil 10, titrate. Handout. Get MR images transferred to [facility] PACS for my review. Guyon [...] neuropathy, worsening. Get full set of labs ([facility]). We have some but not all [...] Encounters Date Type Department Care Team Description 12/31/2024 4:00 PM EDT Ancillary Procedure [facility] [address] [facility] [address] [place] [address] Lumbosacral radiculopathy at L5; Weakness of both lower extremities; Leg pain, bilateral 12/31/2024 Travel 12/18/2024 1:15 PM EDT Procedure Visit [facility] [address] [facility] [address] [place] [address] Luan Kincaid MD Numbness (Primary Dx); Paresthesias; Pain in both lower extremities; Lumbosacral radiculopathy at L5 12/18/2024 Orders Only [facility] [address] [place] [address] Luan Kincaid MD Lumbosacral radiculopathy at L5; Weakness of both lower extremities; Leg pain, bilateral 12/18/2024 Travel 12/11/2024 1:15 PM EDT Procedure Visit [facility] [address] [place] [address] Luan Kincaid MD Hand weakness (Primary Dx); Carpal tunnel syndrome, bilateral 12/11/2024 Travel 11/30/2024 Telephone [facility] [address] [place] [phone] Maureen Fritz DPM Error (VOID this visit) 11/23/2024 2:45 PM EDT Office Visit [facility] [address] [place] [address] Maureen Fritz DPM Ulcer of right foot with fat layer exposed (HCC) (Primary Dx); 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); Abscess of right foot; At increased risk for emergency hospital admission 11/23/2024 Bamboo flowsheet [facility] [address] [place] [address] Maureen Fritz DPM 11/23/2024 Travel 11/20/2024 Telephone [facility] [address] [place] [address] Beatrice Boyd MA Orders Clarification 11/18/2024 Telephone [facility] [address] [place] [address] Beatrice Boyd MA HH Orders 11/18/2024 Telephone [facility] [address] [place] [address] Maureen Fritz DPM 11/16/2024 4:00 PM EDT Office Visit [facility] [address] [place] [address] Maureen Fritz DPM Ulcer of right foot with fat layer exposed (HCC) (Primary Dx); 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); Cellulitis of right foot; Deformity of toe, right 11/16/2024 External Result Encounter [facility] External Department Unsolicited Maureen Fritz DPM 11/16/2024 Travel 11/16/2024 Telephone [facility] [address] [facility] [address] [phone] Shantel Parsons MA 10/31/2024 Refill [facility] [address] [place] [address] Luan Kincaid MD Neurogenic pain 10/21/2024 Telephone [facility] [address] [place] [phone] Luan Kincaid MD 10/20/2024 10:45 AM EDT Office Visit [facility] [address] [place] [address] Maureen Fritz DPM Ulcer of right foot with fat layer exposed (HCC) (Primary Dx); 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); Blister of right foot, initial encounter; Deformity, foot, right 10/20/2024 Bamboo flowsheet [facility] [address] [place] [address] Maureen Fritz DPM 10/20/2024 Travel 10/15/2024 Telephone [facility] [facility] [address] [place] [address] Maureen Fritz DPM from Last 3 Months Family History Medical [...] 1 49.7 Started: 1973 Smokeless Tobacco: Current Tobacco Cessation:Ready [...] 4:00 PM EDT Office Visit [facility] [place] [facility] [address] [facility] [address] [facility] [address] [place] [address] Luan Kincaid MD 7373 [facility] [address] [place] [address] Procedures Procedure Name Priority Date/Time Associated Diagnosis Comments MR LUMBAR SPINE WO CONTRAST Routine 12/31/2024 4:24 PM EDT Lumbosacral radiculopathy at L5 Weakness of both lower extremities Leg pain, bilateral XR FOOT 3+ VIEWS RIGHT Routine 11/16/2024 5:13 PM EDT Ulcer of right foot with fat layer exposed (HCC) AEROBIC FAMILIA CHARGE (PCMIC38) Routine 11/16/2024 4:48 PM EDT AEROBIC FAMILIA CHARGE (NMIC56) Routine 11/16/2024 4:48 PM EDT SUPERFICIAL WOUND CULTURE (FR) Routine 11/16/2024 4:48 PM EDT from Last 3 Months Results * MR lumbar spine wo contrast [...] benefit to ensure stability. ELECTRONICALLY SIGNED BY: DO Maite Earl 01/01/2025 10:01 AM EDT EXAM: MR LUMBAR [...] stability. ELECTRONICALLY SIGNED BY: Almas Reeves DO Luan Kincaid MD Andre MRI PROCEDURES Final Result * XR foot 3+ views right (11/16/2024 5:13 PM EDT) Anatomical Region Laterality Modality Lower Extremities, Foot Right [facility] Narrative 11/16/2024 5:13 PM EDT Imaging [...] sesamoids and metatarsal head right 1st metatarsal. Maureen Fritz DPM IMG XR PROCEDURES Final Re sult * (ABNORMAL) AEROBIC FAMILIA CHARGE (PCMIC38) (11/16/2024 4:48 PM EDT) Pathologist [facility] AZITHROMYCIN <2(S) 11/18/2024 9:54 AM EDT [facility] CEFTAROLINE <0.5(S) 11/18/2024 9:54 AM EDT [facility] CIPROFLOXACIN <1(S) 11/18/2024 9:54 AM EDT [facility] CLINDAMYCIN 0.5(S) 11/18/2024 9:54 AM EDT [facility] DAPTOMYCIN 1(S) 11/18/2024 9:54 AM EDT [facility] LEVOFLOXACIN <1(S) 11/18/2024 9:54 AM EDT [facility] LINEZOLID 2(S) 11/18/2024 9:54 AM EDT [facility] OXACILLIN <0.25(S) 11/18/2024 9:54 AM EDT [facility] PENICILLIN >2(R) 11/18/2024 9:54 AM EDT [facility] TETRACYCLINE <4(S) 11/18/2024 9:54 AM EDT [facility] TRIMETHOPRIM/SULF AMETHOXAZOLE <0.5/9.5( S) 11/18/2024 9:54 AM EDT [facility] VANCOMYCIN 1(S) 11/18/2024 9:54 AM EDT [facility] Other Structure of right foot / Unknown 11/16/2024 4:48 PM EDT 11/16/2024 5:30 PM EDT Comment:Ulcer Maureen Fritz DPM [facility] Final Resu lt [facility] [address] [place] [address], [facility] [address] [place] [address] * (ABNORMAL) AEROBIC FAMILIA CHARGE (NMIC56) (11/16/2024 4:48 PM EDT) AMIKACIN <16(S) 11/18/2024 9:54 AM EDT [facility] AMOXACILLIN/K CLAVULANATE <8/4(S) 11/18/2024 9:54 AM EDT [facility] AMPICILLIN/SULBAC ARREDONDO 8/4(S) 11/18/2024 9:54 AM EDT [facility] AZTREONAM <4(S) 11/18/2024 9:54 AM EDT [facility] CEFAZOLIN >16(R) 11/18/2024 9:54 AM EDT [facility] CEFEPIME <2(S) 11/18/2024 9:54 AM EDT [facility] CEFTAZIDIME <1(S) 11/18/2024 9:54 AM EDT [facility] CEFTAZIDIME/AVIBA CTAM <4(S) 11/18/2024 9:54 AM EDT [facility] CEFTOLOZANE/TAZOB ACTAM <2(S) 11/18/2024 9:54 AM EDT [facility] CEFTRIAXONE <1(S) 11/18/2024 9:54 AM EDT [facility] CEFUROXIME 8(S) 11/18/2024 9:54 AM EDT [facility] CIPROFLOXACIN <0.25(S) 11/18/2024 9:54 AM EDT [facility] ERTAPENEM <0.5(S) 11/18/2024 9:54 AM EDT [facility] GENTAMICIN <2(S) 11/18/2024 9:54 AM EDT [facility] LEVOFLOXACIN <0.5(S) 11/18/2024 9:54 AM EDT [facility] MEROPENEM <1(S) 11/18/2024 9:54 AM EDT [facility] MEROPENEM/VABORBA CTAM <2(S) 11/18/2024 9:54 AM EDT [facility] PIPERACILLIN/TAZO BACTAM <8(S) 11/18/2024 9:54 AM EDT [facility] TETRACYCLINE <4(S) 11/18/2024 9:54 AM EDT [facility] TIGECYCLINE <2(S) 11/18/2024 9:54 AM EDT [facility] TOBRAMYCIN <2(S) 11/18/2024 9:54 AM EDT [facility] TRIMETHOPRIM/SULF AMETHOXAZOLE <0.5/9.5( S) 11/18/2024 9:54 AM EDT [facility] Other Structure of right foot / Unknown 11/16/2024 4:48 PM EDT 11/16/2024 5:30 PM EDT Comment:Ulcer Maureen Fritz [facility] Final Resu lt Performing Organization Address City/[facility]/ZIP Co de Phone Number [facility] [address] [place] [address], [facility] [address] [place] [id number] * SUPERFICIAL WOUND CULTURE ([facility]) (11/16/2024 4:48 PM EDT) Pathologist [facility] ORGANISM Klebsiella oxytoca 9:54 AM EDT [facility] QUANTITY OF GROWTH Moderate Growth 11/18/2024 9:54 AM EDT [facility] ORGANISM Staphylococcus aureus 11/18/2024 9:54 AM EDT [facility] QUANTITY OF GROWTH Heavy Growth 11/18/2024 9:54 AM EDT [facility] Other Structure of right foot / Unknown 11/16/2024 4:48 PM EDT 11/16/2024 5:30 PM EDT Comment:Ulcer Maureen Fritz DPM LAB MICROBIOLOGY - GENERAL ORDERABLES Final Result [facility] [address] [place] [address], [facility] [address] [place] [address] from Last 3 Months Insurance [employer] MEDICARE [place]ICAID [place] Care Teams Bulker Relationship Specialty Start Date End Date Sandra Lewis DO [address] [facility] [place] [phone] PCP - General Family Medicine 10/15/24
--- OUTSIDE RECORDS SUMMARY | 2025-01-13 10:15 | XMS_ITS | Encounter Summary ---
Author Organization [facility] Address [address] [place] [address] Phone Care Team Providers Care Wedding Designer Name Role Phone Sandra Lewis DO Primary Care Provider [phone] Shantel Norton JUVENILE CORRECTIONS OFFICER-GWOT [place]/ILO INTELLIGENCE SUPPORT Primary Care Pro vider Encounter Details Date Type Department Care Team (Late st Contact Info) Description 04/30/[address] [facility] [address] [place] [address] Scanning, Generic Provider Social History Tobacco Use [...] Description 08/17/2025 3:10 PM EDT Office Visit [facility] [address] [facility] [address] [place] [address] Roland Faust MD [address]03 [facility] [address], [address] [place] [address] documented as of this encounter Visit Diagnoses Not on filedocumented in this encounter Additional Health Concerns Assessment Noted Time A fall risk assessment has been complete d for the patient 12/16/2023 10:41 AM EDT documented as of this encounter Care Teams Wedding Designer Relationship Specialty Start Date End Date Sandra Lewis DO [address] [facility] [place] [address] PCP - General Family Medicine 09/25/23 12/29/24 Shantel Norton, NITZA-GWOT IA/ILO INTELLIGENCE SUPPORT [address] [facility] [place] [address] PCP - General Family Medicine 12/30/24 documented as of this encounter
--- OUTSIDE RECORDS SUMMARY | 2025-01-13 10:15 | XMS_ITS | Encounter Summary ---
Author Organization [facility] Address [address] [place] [address] Care Team Providers Care Telephone Operator Name Role Phone Darrell Weinstein Primary Care Provider [phone] Nereida Castro MD Unavailable [phone] Source Comments In the event this information is protected by the Federal Confidentiality of Alcohol and Drug AbusePatient Records regulations: The Federal rules restrict any use of the information to criminally investigate or prosecute any alcohol or drug abuse patient.[facility] Encounter Details Date Type Department Care Team (Late st Contact Info) Description 2022 [place] [address] Provider, f Medicare Coverage of Physical Exams [...] ot on file 04/03/2020 Data from: https://www.neighborhoodatlas.medicine.[facility].edu/. Last address used for calculation Not on [...] on filedocumented in this encounter Care Teams Telephone Operator Relationship Specialty Start Date End Date Darrell Weinstein [address] [facility] [address] [place] [address] PCP - General Family Medicine 11/06/18 Nereida Castro MD [address] [facility] [address] [place] [address] Referring Obstetrics 11/06/18 documented as of this encounter
--- OUTSIDE RECORDS SUMMARY | 2025-01-13 10:15 | XMS_ITS | Encounter Summary ---
Author Organization [facility] Address [address] [place] [address] Care Team Providers Care Underwriting Sales Representative Name Role Phone Sandra Lewis Primary Care Provider [phone] Sandra Lewis DO Primary Care Provider [phone] Encounter Details Date Type Department Care Team (Late Contact Info) Description 10/30/2023 External Result Encounter [facility] External Department Unsolicited Luan Kincaid MD [address] [place] [id number] Social History Tobacco Use Types Packs/Day Years [...] 4:00 PM EDT [facility] [address] [place] [address] Luan Kincaid MD [address] [place] [address] [phone] (work) documented as of this encounter Procedures [...] L5-S1. Impression dictated by: Edgar Segovia Jr., D.OKenisha10/30/2023 3:15 PM Dictation Location: [place] [address] Transcribed By: [facility] 10/30/23 1515 Dictated By: Edgar Segovia Jr, DO 10/30/23 1514 Signed By: <Electronically signed by Edgar Segovia Jr, DO in OV> 10/30/23 1515 Narrative 10/30/2023 3:17 PM EDT [facility] [place] [address] XRay Report Signed Patient: Kerry Gay MR#: [id number] [birth year] : 1955 Acct:[id number] Age/Sex: 67 / F ADM Date: 10/30/23 Loc: XD Room: Type: [facility] Attending Dr: Luan Kincaid MD Copies to: [...] bending Procedure Note Radiology, Radiologist, - 10/30/2023 [facility] Main [place] [address] [place] [address] XRay Report Signed Patient: Kerry Gay CMR#: [id number] 19 : 8Acct:[id number] Age/Sex: 67 / FADM Date: 10/30/23 Loc: XD Room:Type: [facility] Attending Dr: Luan Kincaid MD Copies to: [...] Segovia Jr., D.O.10/30/2023 3:15 PM Dictation Location: [place] [address] Transcribed By: [facility] 10/30/23 1515 Dictated By: Edgar Segovia Jr, DO 10/30/23 1514 Signed By: <Electronically signed by Edgar Segovia Jr, DO inOV> 10/30/23 1515 us Luan Kincaid MD IMG XR PROCEDURES Final Result documented in this encounter Visit Diagnoses Not on filedocumented in this encounter Care Teams Underwriting Sales Representative Relationship Specialty Start Date End Date Sandra Lewis DO PCP - General Family Medicine 01/09/23 10/14/24 Sandra Lewis DO [address] [facility] [place] [address] PCP - General Family Medicine 10/15/24 documented as of this encounter
--- OUTSIDE RECORDS SUMMARY | 2025-01-13 10:15 | XMS_ITS | Encounter Summary ---
Author Organization [facility] Address [address] [place] [address] Phone Care Team Providers Care Photonic Laboratory Technician Name Role Phone Sandra Lewis DO Primary Care Provider [phone] Shantel Norton AIRCRAFT DESIGN ENGINEER-GROUND SERVICE EQUIPMENT MECHANIC Primary Care Pro vider Encounter Details Date Type Department Care Team (Late st Contact Info) Description 09/13/2023 Scanned Document [facility] [address] [place] [address] Scanning, Generic Provider Social History Tobacco Use [...] Description 08/17/2025 3:10 PM EDT Office Visit [facility] [address] [facility] [address] [place] [address] Roland Faust MD [address] [facility] [address], [address] [place] [address] documented as of this encounter Visit Diagnoses Not on filedocumented in this encounter Care Teams Photonic Laboratory Technician Relationship Specialty Start Date End Date Sandra Lewis DO [address] [facility] [place] [address] PCP - General Family Medicine 09/25/23 12/29/24 Shantel Norton APRN-GROUND SERVICE EQUIPMENT MECHANIC [address] [place] [address] PCP - General Family Medicine 12/30/24 documented as of this encounter
--- OUTSIDE RECORDS SUMMARY | 2025-01-13 10:15 | XMS_ITS | Encounter Summary ---
Author Organization [facility] Address [address] [place] [address] Phone Care Team Providers Care Cook Pie Name Role Phone Sandra Lewis DO Primary Care Provider [phone] Shantel Norton BILLBOARD POSTER HELPER-BUSINESS OFFICE TECHNICIAN Primary Care Pro vider Encounter Details Date Type Department Care Team (Late st Contact Info) Description 09/14/2023 Scanned Document [facility] [address] [place] [address] Scanning, Generic Provider Social History Tobacco Use [...] Description 08/17/2025 3:10 PM EDT Office Visit [facility] [address] [facility] [address] [place] [address] Roland Faust MD [address]03 [facility] [address], [address] [place] [address] documented as of this encounter Visit Diagnoses Not on filedocumented in this encounter Care Teams Cook Pie Relationship Specialty Start Date End Date Sandra Lewis DO [address] [facility] [place] [address] PCP - General Family Medicine 09/25/23 12/29/24 Shantel Norton APRN-BUSINESS OFFICE TECHNICIAN [address] [place] [address] PCP - General Family Medicine 12/30/24 documented as of this encounter
--- OUTSIDE RECORDS SUMMARY | 2025-01-13 10:15 | XMS_ITS | Encounter Summary ---
Author Organization [facility] Address [address] [place] [address] Phone Care Team Providers Care Spark Plug Tester Name Role Phone Sandra Lewis DO Primary Care Provider Shantel Norton LOCATION ANALYST-CORRECTIONS LIEUTENANT Primary Care Pro vider Encounter Details Date Type Department Care Team (Late st Contact Info) Description 2024 Scanned Document [facility] [address] [place] [address] Scanning, Generic Provider Social History Tobacco Use [...] Description 08/17/2025 3:10 PM EDT Office Visit [place] [id number] [facility] [address] [place] [address] Roland Faust MD 7[address] [facility] [address], [address] [place] [address] documented as of this encounter Visit Diagnoses Not on filedocumented in this encounter Additional Health Concerns Assessment Noted Time A fall risk assessment has been complete d for the patient 06/26/2024 9:48 AM EST documented as of this encounter Care Teams Spark Plug Tester Relationship Specialty Start Date End Date Sandra Lewis DO [address] [facility] [place] [address] PCP - General Family Medicine 09/25/23 12/29/24 Shantel Norton, NITZA-CORRECTIONS LIEUTENANT [address] [facility] [place] [address] PCP - General Family Medicine 12/30/24 documented as of this encounter
--- OUTSIDE RECORDS SUMMARY | 2025-01-13 10:27 | XMS_ITS | CCD ---
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 Elizabeth Samayoa Other Provider MD Ashley Cheatham [...] Other Provider MD John Murillo Other Provider [phone] DO Lit Clark Other [facility] Dayana Other Provider DO Roque Isidro Other Provider NITZA Calvo Other Provider CHERYL Medina Other Provider [facility] Jeanine E Other Provider MD Chaka Frye Attending Provider DO Rl Villavicencio Emergency Provider DO Jluis Campos Admit Provider Saranya Wright Other Provider Unavailable Fay, PhD Cash Other Provider DO Jelly Tuttle Other Provider MD John Murillo Other Provider DO Lit Clark Other Provider Dar [facility] Dayana Other Provider DO Roque Isidro Other Provider NITZA Calvo Other Provider CHERYL Medina Other Provider [facility] Jeanine E Other Provider [phone] MD Chaka Frye Attending Provider [phone] NITZA Salinas Referring Provider [phone] Keita, DO Sandra A Primary Care Provider MD Jonas Ch Referring Provider MD Roland Faust Attending Provider BARRIE Fritz Attending Provider [phone] Keita DO, Sandra Primary Care Provider Keita, DO Sandra A Primary Care Provider MD Oz Kincaid Attending Provider Keita DO, Sandra A Primary Care Provider Manjit Glaeson MD Attending Provider Rl Villavicencio DO Emergency Provider Wesley Villafuerte [...] Attending Provider Oz Kincaid MD Referring Provider Keita DO, Sandra A Primary Care Provider Rl Villavicencio DO Emergency Provider Wesley Villafuerte PA-C Emergency Provider Jori Hearn DO Admit Provider Priscilla Lang MD Attending Provider Amber DO Howardyefri Yarbrough Other Provider Keita DO, Sandra A Attending Provider Roland Faust MD Attending Provider Angelique Russell APRN Other Provider Nataliya Jane APRN Attending Provider Oz Kincaid MD Referring Provider Deneen Frost PA-C Attending Provider Keita DO, Sandra A Primary Care Provider Keita DO, Sandra A Primary Care Provider Manijt Gleason MD Attending Provider [phone] Keita DO, Sandra A Primary Care Provider Keita DO, Sandra Primary Care Provider Keita DO, Sandra Primary Care Provider Monico VARGAS, Andrius Vytautjing Attending Unavailable Monico VARGAS, Andrius Vytautjing Attending Unavailable Keita DO, Sandra A Primary Care Provider Angelique Russell APRN Attending Provider Keita DO, Sandra A Attending Provider Edgar Eden DO Attending Provider Rosibel VARGAS, Imjennifer Other Provider Samm Medina MD Attending Provider Keita DO, Sandra A Referring Provider NO FAMILY, PHYSICIAN Primary Care Provider Daniella Fritz DPM, Karl Attending Provider Shantel Norton APRN Primary Care Provider Shantel Norton APRN Attending Provider [phone] Cierra GODDARD-Shantel TYLER Rebecca Primary Care Pro vider TRABANA MARÍA, MOURHAF Attending Unavailable TRABOULSSI, MOURHAF Referring Unavailable CIERRASHANTEL A Primary Care Unavailab le TRABOULSSI, MOURHAF Attending Unavailable TRABOULSSI, MOURHAF Referring Unavailable KEITA, SANDRA A Primary Care Unavailable TRABOULSSI, MOURHAF Attending Unavailable JONAS CH Referring Unavailable KEITA, SANDRA A Primary Care Unavailable Keita, Sandra A Primary Care Unavailable Keita, Sandra A Attending Unavailable Keita, Sandra A Admitting Unavailable Keita, Sandra A Primary Care Unavailable Rl Villavicencio Admitting Unavailable Rl Villavicencio Attending Unavailable Oz Kincaid Referring Unavailable Keita, Sandra A Primary Care Unavailable Nataliya Jane Admitting Unavail able Nataliya Jane Attending Unavail able Karl Fritz Admitting Unavailable Karl Fritz Attending Unavailable Traboulssi, Mourhaf Admitting Unavailable Traboulssi, Mourhaf Attending Unavailable Keita, Sandra A Primary Care Unavailable Samm Medina Admitting Unavailable Samm Medina Attending Unavailable Shantel Norton Primary Care Unavailable Keita, Sandra A Primary Care Unavailable Tray Nava Admitting UnavailTray Luke Attending Unavailabl e Karl Fritz Admitting Unavailable Karl Fritz Attending Unavailable Angelique Russell Consulting Unavailable Traboulssi, Mourhaf Admitting Unavailable Traboulssi, Mourhaf Attending Unavailable Keita, Sandra A Primary Care Unavailable Lit Clark Consulting Unavailab Jori Carvalho Admitting Unavailable Keita, Sandra A Primary Care Unavailable Priscilla Lang Attending Unavailable Keita, Sandra A Primary Care Unavailable Asaad, Imad Admitting Unavailable Asaad, Imad Attending Unavailable Keita, Sandra A Primary Care Unavailable Asaad, Imad Admitting Unavailable Asaad, Imad Attending Unavailable Deneen Frost Attending Unavailable Deneen Frost Admitting Unavailable OZ KINCAID Attending Unavailable OZ KINCAID Attending Unavailable KARL FRITZ Attending Unavailable KARL FRITZ Attending Unavailable KARL FRITZ Attending Unavailable OZ KINCAID Attending Unavailable OZ KINCAID Referring Unavailable KARL FRITZ Attending Unavailable OZ KINCAID Attending Unavailable KARL FRITZ Attending Unavailable KARL FRITZ Attending Unavailable KARL FRITZ Attending Unavailable OZ KINCAID Attending Unavailable OZ KINCAID Attending Unavailable OZ KINCAID Referring Unavailable OZ KINCAID Referring Unavailable OZ KINCAID Attending Unavailable KARL FRITZ Attending Unavailable Samm Medina MD Attending Provider [phone] Samm Medina MD. Other Provider Angelique Russell APRN Attending Provider Allergies Allergy Classification Reported Allergen(s) Allergy Type Date of Onset Reaction(s) Facility (20 sources) Sulfamethoxazole ; Translations: [sulfamethoxazol e] Drug Allergy 3 Unknown [facility] Repository (17 sources) Sulfonamides (Antibiotic); Translations: [SULFA (SULFONAMIDE ANTIBIOTICS)] Allergy to substance 9 GI intolerance, Unknown, Nausea/vomiting [facility] (20 sources) Sulfonamides (Antibiotic) Drug Allergy 9 GI intolerance, Unknown [facility] (1 source) pioglitazone Drug Allergy [address] [facility] Medications Current Medications Medication Drug Class(es) Dates [...] (20 sources) Factor Xa Inhibitor Start: 07-08-2024 End: 12-30-2024 take 1 tablet by mouth twice daily Apixaban (Eliquis) 5 mg tablet Active 0 .ROUTE .COMPLEX 180 December 30, 2024 8:34am TAKE 1 TABLET BY MOUTH TWICE A DAY Complies with drug therapy Start: 09-14-2023 End: 10-10-2024 take 1 tablet [...] (Dr/Ec) Active 81 MG PO Daily February 09, 2021 12:00am Complies with drug therapy take 1 tablet by mouth once jonah y Aspir-Low 81 MG 1 tablet Orally Once a day Active carvedilol 12.5 mg oral tablet (20 sources) alpha-Adrenergic Debbie, beta-Adrenergic Debbie Start: 03-09-2024 End: 03-09-2025 take 1 tablet by mouth twice daily Carvedilol 12.5 mg tablet Active 12.5 MG PO Twice daily April 14, 2024 1:00am Complies with drug therapy Continuous Blood Gluc Sensor (FreeStyle Brent 14 Day Sensor) [facility] (20 sources) Start: 12-21-2022 Continuous Blood Gluc Sensor (FreeStyle Brent 14 Day Sensor) [facility] apply 1 SENSOR as directed every 14 days use with DEVICE to MONIT... (REFER TO PRESCRIPTION NOTES). 12/21/2022 Active docusate sodium 100 mg oral capsule (20 sources) Start: 06-12-2023 take 1 capsule by mouth once daily as needed for constipation Docusate Sodium (Stool Softener) 100 mg capsule Active 100 MG PO Daily as needed for constipation June 12, 2023 4:41pm Complies with drug therapy Start: 02-09-2021 End: 06-12-2023 take 1 capsule by mouth three times daily Docusate Sodium (Stool Softener) 100 mg capsule Discontinued 100 MG PO Three times daily June 12, 2023 9:08am June 12, 2023 4:43pm take 1 capsule by mo [facility] twice daily docusate sodium (Colace) 100 mg [...] 25 MG PO Daily April 28, 2024 1:58pm Complies with drug therapy [id number] 0.3 ml EPINEPHrine 1 mg/ml auto-injector (4 sources) alpha-Adrenergic Agonist, beta-Adrenergic Agonist, Catecholamine Start: 12-16-19 Epinephrine 0.3 mg/0.3 mL auto-injector Active 0.3 ML SUBCUT every 5 to 15 minutes as needed for allergy to bees December 15, 2024 12:00am do not exceed 2 doses per episode Complies with drug therapy Flash Glucose Sensor (Freestyle Brent 14 Day Sensor) kit (20 sources) Start: 12-30-19 Flash Glucose Sensor (Freestyle Brent 14 Day Sensor) kit Active 0 .ROUTE .MEDSUPPLY December 29, 2024 7:04am As directed Change every 14 days Start: 01-10-2024 End: 12-29-2024 Flash Glucose Sensor (Freest yle Brent 14 Day Sensor) kit Discontinued 0 .ROUTE .MEDSUPPLY January 10, 2024 12:00am December 29, 2024 7:04am As directed Change every 14 days Start: [...] Day Sensor) kit Discontinued 0 .ROUTE .MEDSUPPLY 2 July 21, 2023 11:00pm April 28, 2024 [...] Active 0 .ROUTE .COMPLEX May 11, 2024 8:37am TAKE 1 TABLET BY MOUTH EVERY DAY Complies with drug therapy Start: 02-09-2021 End: 05-11-2024 take 1 tablet by mouth once daily Folic Acid 1 mg tablet Discontinued 1 MG PO Daily 90 October 16, 2023 7:36am May 11, [...] prn Active furosemide 20 mg oral tablet (18 sources) Loop Diuretic Start: 05-07-2024 End: 05-07-2025 take 1 tablet by mouth every other day furosemide (Lasix) 20 mg tablet Indications: Shortness of breath , Edema, unspecified type Take 1 tablet (20 mg) by mouth every other day. 45 tablet 3 05/07/2024 05/07/2025 Active Start: 05-07-2024 Furosemide 20 mg tablet Active 20 MG PO Every 48 hours May 07, 2024 1:00am Complies with drug therapy 1.5 ml insulin glargine 300 unt/ml pen injector (20 sources) Insulin Analog Start: 01-05-2025 inject 23 [IU] by subcutaneous injection once daily in the morning Insulin Glargine U-300 Conc (Toujeo Solostar U-300 Insulin) 300 unit/mL (1.5 mL) insulin pen Active 23 UNIT SUBCUT Every morning January 05, 2025 2:45pm Complies with drug therapy Start: 04-28-2024 End: 01-05-2025 inject 22 [IU] by subcutaneous injection once daily in the morning Insulin Glargine U-300 Conc (Toujeo Solostar U-300 Insulin) 300 unit/mL (1.5 mL) insulin pen Discontinued 22 UNIT SUBCUT Every morning January 05, 2025 1:41pm January 05, 2025 2:45pm Start: 06-12-2023 End: 04-28-2024 inject 20 [IU] by subcutaneous injection once daily Insulin Glargine U-300 Conc (Toujeo Solostar U-300 Insulin) 300 unit/mL (1.5 mL) insulin pen Discontinued 20 UNIT SUBCUT Daily November 14, 2023 4:09pm April 28, 2024 1:59pm Start: 12-12-2022 insulin glargi ne (Toujeo Solostar- 1 unit dial) 300 unit/mL (1.5 mL) injection 20 Units. 12/12/2022 Active Start: 12-12-2022 Toujeo SoloSta r 300 UNIT/ML [...] corrective scale (expect up to 20 units/day) ketoconazole 20 mg/ml medicated shampoo (1 source) Azole Antifungal Start: 01-12-2025 Ketoconazole 2 % shampoo Active TOPICAL January 12, 2025 12:00am Complies with drug therapy 1 ml ketorolac tromethamine 30 mg/ml cartridge [...] TWICE A DAY Complies with drug therapy Start: 01-29-2024 take 1 tablet by umer [...] hydrochloride 10 mg oral tablet (20 sources) R-huqaeu-H-aspartate Receptor Antagonist Start: 04-28-2024 End: 07-03-2024 take 1 tablet by mouth twice daily Memantine 10 mg tablet Active 10 MG PO Twice daily 180 July 03, 2024 1:03pm Complies with drug therapy Start: 02-25-2024 End: 07-21-2024 memantine (Namenda) 10 MG ta blet Indications: Cognitive decline 1 tab every day x3-5 days then BID 60 tablet 3 02/25/2024 07/21/2024 Discontinued (Reorder) metFORMIN hydrochloride 500 mg oral tablet (20 sources) Biguanide Start: 08-26-2023 End: 01-05-2025 take 1 tablet by mouth twice daily at mealtime Metformin 500 mg tablet Active 0 .ROUTE .COMPLEX 180 January 05, 2025 2:46pm take 1 tablet by mouth twice a day with meals Complies with drug therapy Start: 02-09-2021 End: 08-26-2023 take 1 tablet [...] 09-30-2023 Miscellaneous Medical Supply Discontinued 0 .Route September 17, 2023 12:00am [...] Orally Once a day Active Multivitamin tablet (19 sources) Start: 06-12-2023 take 1 tablet by mouth once daily Multivitamin tablet Active 1 TAB PO Daily June 12, 2023 9:10am Complies with drug therapy Start: 06-12-2023 take 1 tablet by umer th once daily Start: 06-12-2023 take 1 tablet by umer [...] mg capsule,delayed release(DR/EC) Active 0 .ROUTE .COMPLEX December 14, 2024 7:53am TAKE 1 CAPSULE BY MOUTH EVERY DAY Complies with drug therapy Start: 07-01-2023 End: 09-10-2024 take 1 capsule [...] Administer 1mg subcutaneously once weekly 12/10/2022 Active pregabalin 300 mg oral capsule (20 sources) Start: 10-01-2024 take 2 capsules by mouth once daily at bedtime Pregabalin 300 mg capsule Active 600 MG PO Daily at bedtime October 01, 2024 3:13pm Complies with drug therapy Start: 07-10-2024 End: 11-02-2024 take 1 capsule by mouth twice daily pregabalin (Lyrica) 300 MG capsule Indications: Neurogenic pain TAKE 1 CAPSULE BY MOUTH TWICE A DAY 60 capsule 3 11/02/2024 Active Start: 01-15-2024 End: 10-01-2024 take 1 capsule by mouth once daily Pregabalin 300 mg capsule Discontinued 300 MG PO Daily 90 July 03, 2024 1:03pm October 01, 2024 3:16pm Start: 01-15-2024 Pregabalin Act abdifatah MG PO January 15, 2024 12:00am Start: 01-07-2024 take 1 capsule by mo [facility] twice daily pregabalin (Lyrica) 300 MG capsule Indications: Neurogenic pain TAKE 1 CAPSULE BY MOUTH TWICE A DAY 60 capsule 3 01/07/2024 Active Start: 11-18-2023 End: 01-15-2024 take 1 capsule by mouth twice daily Pregabalin (Lyrica) 150 mg capsule Discontinued 150 MG PO Twice daily November 18, 2023 12:00am January 15, 2024 3:40pm Semaglutide (5 sources) Start: 04-28-2024 inject 2 mg by subcutaneous injection every week Semaglutide (Ozempic) 2 mg/dose (8 mg/3 mL) pen injector Active 2 MG SUBCUT every week April 28, 2024 1:00am Complies with drug therapy Start: 04-28-2024 inject 2 mg by subcutaneous in jection every week semaglutide (Ozempic) 1 mg/d ose (4 mg/3 mL) pen injector (6 sources) Start: 12-10-2022 semaglutide (O zempic) 1 [...] every week April 28, 2024 12:00am sertraline 50 mg oral tablet (6 sources) Serotonin Reuptake Inhibitor Start: 01-12-2025 take 1 tablet by mouth once daily Sertraline 50 mg tablet Active 50 MG PO Daily 90 90 January 12th, 2025 2:35pm Complies with drug therapy Start: 12-15-2024 End: 01-12-2025 take 1 tablet by mouth once daily Sertraline 25 mg tablet Discontinued 25 MG PO Daily 30 January 11, 2025 11:49am January 12, 2025 2:36pm simvastatin 20 mg oral tablet (20 sources) HMG-CoA Reductase Inhibitor Start: 04-30-2024 End: 07-24-2024 take 2 tablets by mouth once daily Simvastatin 20 mg tablet Active 40 MG PO Daily July 24, 2024 12:37pm Complies with drug therapy Start: 12-04-2022 take 1 tablet by umer th at bedtime simvastatin (Zocor) 40 MG tablet Take 40 mg by mouth at bedtime 12/04/2022 Active Start: 02-09-2021 End: 05-22-2025 take 1 tablet by mouth once daily Simvastatin 20 mg Tablet Discontinued 20 MG PO Daily February 09, 2021 12:00am April 30, 2024 11:27am traMADol hydrochloride 50 mg oral tablet (2 sources) Opioid Agonist Start: 01-05-2025 take 1 tablet by mouth twice daily as needed Tramadol 50 mg tablet Active 50 MG PO Twice daily as needed January 05, 2025 12:00am Complies with drug therapy varenicline 1 mg oral tablet (20 sources) [...] Start: 11-14-2023 take 1 capsule by mo [facility] once daily Cyanocobalamin (Vitamin B-12) 1,000 mcg capsule Active 1000 MCG PO Daily November 14, 2023 12:00am Complies with drug therapy Start: 02-09-2021 End: 12-17-2021 take 1 tablet [...] mg / clavulanate 125 mg oral tablet (20 sources) Penicillin-class Antibacterial Start: 12-15-2024 End: 01-05-2025 take 1 tablet by mouth twice daily Amoxicillin-Pot Clavulanate 875-125 mg tablet Discontinued 1 TAB PO Twice daily December 15, 2024 12:00am January 05, 2025 1:40pm Start: 01-15-2024 End: 04-14-2024 Amoxicillin-Pot Clavulanate 875-125 mg tablet Discontinued TAB PO January 15, 2024 12:00am April 14, 2024 10:39am 24 hr buPROPion hydrochloride 150 mg extended release oral tablet (18 sources) Aminoketone Start: 09-16-2024 End: 01-05-2025 take 1 tablet by mouth once daily in the morning Bupropion Hcl 150 mg tablet extended release 24 hr Discontinued 0 .ROUTE .COMPLEX September 16, 2024 10:37am January 05, 2025 1:40pm TAKE 1 TABLET BY MOUTH EVERY MORNING Start: 09-16-2024 take 1 tablet by umer [...] for 3 days for 3 DCed Active cefuroxime 500 mg oral tablet (20 sources) Cephalosporin Antibacterial Start: 04-30-2024 End: 08-20-2024 take 1 tablet by mouth twice daily Cefuroxime Axetil 500 mg tablet Discontinued 500 MG PO Twice daily 14 April 30, 2024 1:00am August 20, 2024 10:10am Start: 12-13-2021 End: 10-10-2022 take 1 tablet by mouth twice daily Cefuroxime Axetil 500 mg tablet Discontinued 500 MG PO Twice daily 6 3 December 13, 2021 12:00am October 10, 2022 12:16pm Start: 12-13-2021 take 500 mg by mouth twice daily Cefuroxime Axetil Active 500 MG PO Twice daily 6 December 13, 2021 12:00am Start: 12-13-2021 take 500 mg by mouth twice daily Cefuroxime Axetil Active 500 MG PO Twice daily 6 December 13, 2021 12:00am cephalexin 500 mg oral capsule (12 sources) Cephalosporin Antibacterial Start: 07-10-2024 End: 07-22-2024 [...] Active doxycycline hyclate 100 mg oral tablet (20 sources) Tetracycline-class Drug Start: 12-15-2024 End: 01-05-2025 take 1 tablet by mouth twice daily Doxycycline Hyclate 100 mg tablet Discontinued 100 MG PO Twice daily December 15, 2024 12:00am January 05, 2025 1:40pm Start: 11-16-2024 End: 11-26-2024 take 1 tablet [...] days 02/06/2022 01/07/2024 Discontinued flash glucose sensor (FreeSt yle Brent 14 [...] 2023 8:13am L. acidophilus/Bifid. animalis (Daily Probiotic) (5 sources) Start: 08-25-2024 End: 12-15-2024 take 1 [...] 30, 2023 7:33am As directed Multivitamin Tablet (19 sources) Start: 02-09-2021 End: 06-12-2023 take 1 tablet by mouth twice daily Multivitamin Tablet Discontinued 1 TAB PO Twice daily February 09, 2021 12:00am June 12, 2023 9:13am Start: 02-09-2021 End: 06-12-2023 take 1 tablet by mouth twice daily Multivitamin Tablet Discontinued 1 TAB PO Twice daily February 08, 2021 11:00pm June 12, 2023 8:13am 24 hr nicotine 0.875 mg/hr transdermal system (16 sources) Cholinergic Nicotinic Agonist Start: 05-07-2024 End: [...] 18, 2023 8:10pm take 1 capsule by [facility] every twenty-four hours Nortriptyline HCl 50 MG 1 capsules Orally Once a day Active pen needle, diabetic (Sure-F ine [place]) (20 sources) Start: 06-12-2023 End: 01-05-2025 pen needle, diabetic (Sure-F ine [place]) Discontinued .Route June 12, 2023 1:00am January 05, 2025 1:32pm Start: 06-12-2023 pen needle, di abetic (Sure-Fine [place]) Active .Route June 12, 2023 1:00am Start: 06-12-2023 pen needle, di abetic (Sure-Fine [place]) Active .Route June 12, 2023 12:00am Start: 06-12-2023 pen needle, di abetic (Sure-Fine [place]) Active .ROUTE June 12, 2023 12:00am pioglitazone [...] subcutaneously every week for 84 Active Semaglutide (19 sources) Start: 04-28-2024 End: 04-28-2024 inject 1 [...] Start: 08-09-2022 take 1 capsule by mo [facility] every twenty-four hours Temazepam 30 MG 1 capsule at bedtime as needed Orally Once a day for 30 days Jul, Active Start: 07-04-2022 take 1 capsule by [facility] every twenty-four hours Temazepam 30 MG 1 [...] Onset: 03-27-2021 Resolved: 01-09-2022 Episodic Allergic reactions (8 sources) Allergy to honey bee venom; Translations: [...] 01-28-2024 Chronic Coma; stupor; and brain damage (8 sources) Daytime somnolence; Translations: [Somnolence] 10-01-2024 Episodic Complications of surgical procedures or medical care (10 sources) Complication of ventilation therapy 10-01-2024 Episodic Conditions associated with dizziness or vertigo (20 sources) Dizziness; Translations: [Dizziness and giddiness] Onset: 04-27-2024 06-19-2023 Episodic Congestive heart failure; nonhypertensive (10 sources) Congestive heart failure; Translations: [Heart failure, [...] insomnia; Translations: [Primary insomnia] Chronic Mood disorders (20 sources) Major depressive disorder; Translations: [Major depressive disorder, single episode, unspecified] 08-25-2024 Chronic Nonspecific chest pain (20 sources) Chest pain; Translations: [Chest pain, unspecified] 09-12-2023 Episodic Nutritional deficiencies (20 sources) Vitamin D deficiency; Translations: [Vitamin D deficiency, unspecified] Chronic Nutritional deficiencies (20 sources) Deficiency of other specified B group vitamins; Translations: [Cobalamin deficiency] Onset: 03-27-2021 Resolved: 01-09-2022 Episodic Open wounds of extremities (20 sources) Injury of foot; Translations: [Unspecified open wound, unspecified foot, initial encounter] 02-03-2024 Episodic Other acquired deformities (2 sources) Unspecified acquired deformity of right lower leg; Translations: [Unspecified deformity of ankle and foot, acquired] 10-26-2024 Episodic Other aftercare (20 sources) Long-term current use of insulin; Translations: [halfway (current) use of insulin] 06-12-2023 Episodic Other aftercare (12 sources) bed bug exterminator (current) use of insulin; Translations: [Long-term (current) use of insulin] Onset: 03-27-2021 Resolved: 01-09-2022 Episodic Other aftercare (20 sources) Post-discharge follow-up; Translations: [Encounter for follow-up examination after completed treatment for conditions other than malignant neoplasm] 09-24-2023 Episodic Other aftercare (17 sources) Encounter for follow-up examination after completed treatment for conditions other than malignant neoplasm; Translations: [Other follow-up examination] 09-17-2023 Episodic Other circulatory disease (15 sources) Low blood pressure; Translations: [Hypotension, unspecified] 05-07-2024 Episodic Other circulatory disease (5 sources) Hypotension, unspecified; Translations: [Hypotension, unspecified] 05-07-2024 Episodic Other connective tissue disease (20 sources) Pain in bilateral legs; Translations: [Pain in right leg] Onset: 10-29-2023 10-29-2023 Episodic Other connective tissue disease (20 sources) Other symptoms and signs involving the [...] the digestive system] Episodic Other gastrointestinal disorders (15 sources) Incontinence of feces; Translations: [Full incontinence of feces] 05-07-2024 Episodic Other gastrointestinal disorders (5 sources) Full incontinence of feces; Translations: [Full incontinence of feces] 05-07-2024 Episodic Other hematologic conditions (20 sources) Secondary polycythemia; 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] 04-28-2024 Episodic Other hematologic conditions (2 sources) Lesion of spleen; Translations: [Other diseases of spleen] 01-12-2025 Episodic Other injuries and conditions due to [...] 12-13-2023 12-13-2023 Chronic Other nervous system disorders (5 sources) Numbness; Translations: [Anesthesia of skin] 10-06-2024 Episodic Other nervous system disorders (1 source) Paresthesia; Translations: [Paresthesia of skin] 12-18-2024 Episodic Other nutritional; endocrine; and metabolic disorders (20 sources) Obese class I; Translations: [Body mass index (BMI) 33.0-33.9, adult] Chronic Other nutritional; endocrine; and metabolic disorders (20 sources) Body mass index 30+ - obesity; Translations: [Body mass index (BMI) 32.0-32.9, adult] Onset: 12-16-2023 06-18-2023 Chronic Other nutritional; endocrine; and metabolic disorders (3 sources) Body mass index (BMI) 30.0-30.9, adult Onset: 03-27-2021 Resolved: 07-10-2021 Chronic Other nutritional; [...] Chronic Other nutritional; endocrine; and metabolic disorders (2 sources) Obesity, unspecified; Translations: [Obesity, unspecified] Onset: 12-30-2024 Chronic Other nutritional; endocrine; and metabolic disorders (2 sources) Obesity; Translations: [Class 1 obesity with body mass index (BMI) of 30.0 to 30.9 in adult] 01-05-2025 Chronic Other nutritional; endocrine; and metabolic disorders [...] blood chemistry] 11-14-2023 Episodic Other skin disorders (9 sources) Lesion of skin of face; Translations: [...] Resolved: 10-29-2023 10-29-2023 Chronic Residual codes; unclassified (2 sources) Obstructive sleep apnea (adult) (pediatric); Translations: [Obstructive sleep apnea (adult)(pediatric)] Onset: 12-24-2024 10-01-2024 Chronic Residual codes; unclassified (20 sources) Insomnia; Translations: [Insomnia, unspecified] Episodic Residual codes; unclassified (1 source) Asymptomatic menopausal state Episodic Residual codes; unclassified (15 sources) Sleep disorder; Translations: [Sleep disorder, unspecified] 05-07-2024 Episodic Residual codes; unclassified (5 sources) Sleep disorder, unspecified; Translations: [Sleep disturbance, unspecified] 05-07-2024 Episodic Residual codes; unclassified (2 sources) At increased risk of emergency hospital admission; Translations: [Other specified personal risk factors, not elsewhere classified] 11-23-2024 Episodic Residual codes; unclassified (6 sources) Postmenopausal state; Translations: [Asymptomatic menopausal state] 12-16-2024 Episodic Spondylosis; intervertebral disc disorders; other back problems (13 sources) Lumbar spondylosis; Translations: [Spondylosis without myelopathy or radiculopathy, lumbar region] 09-07-2024 Chronic Spondylosis; intervertebral disc disorders; other back problems (20 sources) Spasm of muscle of lower back; Translations: [Muscle spasm of back] Onset: 10-29-2023 10-29-2023 Episodic Substance-related disorders [...] / Z79.84(ICD-10) Onset: 05-16-2017 Unclassified (2 sources) Bilateral leg weakness 10-06-2024 Urinary tract infections (20 sources) Emphysematous cystitis; Translations: [Other cystitis without hematuria] 12-09-2021 Episodic Past or Other Problems Problem Classification Problem Date Documented Da te Episodic/Chronic E Codes: Adverse effects of medical drugs (20 sources) Alpha-tocopheryl adverse reaction; Translations: [Adverse effect of vitamins, initial encounter] Onset: 11-29-2023 11-29-2023 Episodic Genitourinary symptoms and ill-defined conditions (2 sources) Proteinuria, unspecified Onset: 03-27-2021 Resolved: 07-10-2021 Episodic Immunizations and screening for infectious disease (20 sources) Anti-nuclear factor positive; Translations: [Other specified abnormal immunological findings in serum] Onset: 11-29-2023 11-29-2023 Episodic Other aftercare (7 sources) Taking high risk medication; Translations: [Other chcf (current) drug therapy] Onset: 11-13-2023 Resolved: 12-30-2024 11-13-2023 Episodic Other connective tissue disease (1 [...] and awareness] Onset: 02-25-2024 02-25-2024 Episodic Other skin disorders (1 source) Corns and callosities Onset: 07-10-2021 Resolved: 07-10-2021 Episodic Residual codes; unclassified (1 source) Insomnia, unspecified Onset: 05-08-2021 Resolved: 05-08-2021 Episodic Skin and subcutaneous tissue infections (7 sources) Cellulitis of right foot; Translations: [Cellulitis of right lower limb] Onset: 01-07-2024 01-07-2024 Episodic Unclassified (1 source) Dermatochalasis of left upper eyelid; Translations: [Dermatochalasis of left upper eyelid] Onset: 05-16-2017 Unclassified (6 sources) Onset: 10-07-2023 Resolved: 06-26-2024 10-07-2023 Results Test Name Value Interpretation Reference Range Facility HbA1c HPLC (Bld) [Mass fract ion]Ordered By: Angelique Russell on 01-05-2025 HbA1c (Bld) [Mass fraction] 8.6 % [facility] No Panel InformationOrdered By: Angelique Russell on 01-05-2025 Bedside Glucose [address] [facility] MR LUMBAR SPINE WO CONTRASTo n 12-31-2024 MR LUMBAR SPINE WO CONTRAST EXAM: MR LUMBAR SPINE WO CONTRAST History: [...] to the remainder of the splenic parenchyma. IMPRESSION: Degenerative changes of the lumbar spine as detailed. Nonspecific 3 cm lesion of the spleen is likely a cyst or hemangioma. Correlation with prior imaging would be of benefit to ensure stability. ELECTRONICALLY SIGNED BY: Almas Reeves, DO Normal Not Available Aerobic culture with sensiti vityOrdered By: Karl Fritz on 11-16-2024 Bacteria identified Aer cx Nom (Unsp spec) Klebsiella oxytoca Abnormal [facility] Bacteria identified Aer cx Nom (Unsp spec) Staphylococcus aureus Abnormal [facility] Superficial Wound Cultureon 11-16-2024 Superficial Wound Culture [...] RESISTANT TO ALL B-LACTAM DRUGS. PERFORMED BY: [facility] [address] [place] [address] PATHOLOGIST ASSISTANT MERCHANDISE MANAGER BENNIE HIGGINBOTHAM M.D. Normal [facility] Comment on above: Performed By: #### L IPID, BMP #### [address] XR Foot - right 3 Viewson [...] and metatarsal head right 1st metatarsal. [facility] Radiology Study observation (narrative) [facility] Capillary blood glucose steve urement by glucometer (mass/volume)Ordered By: Manjit Gleason on 09-10-2024 Glucose [Mass/Vol] 234 mg/dL Normal [facility] Comment on above: Random Glucose Refer ence Range is dependent on time and content of last meal. Glucose of more than 200 mg/dL in a nonstressed, ambulatory subject supports the diagnosis of Diabetes Mellitus. Result Comment: [facility] Glucose Reference Range is dependent on time and content of last meal. Glucose of more than 200 mg/dL in a nonstressed, ambulatory subject supports the diagnosis of Diabetes Mellitus. Performed By: #### C MP, MG, PHOS, CBC #### [address] Glucose Glucometer (BldC) [M ass/Vol]Ordered By: Manjit Gleason on 09-10-2024 Glucose [Mass/Vol] Capillary blood gluc ose measurement by glucometer (mass/volume) [facility] Comment on above: Random Glucose Refer ence Range is dependent on time and content of last meal. Glucose of more than 200 mg/dL in a nonstressed, ambulatory subject supports the diagnosis of Diabetes Mellitus. Glucose Poct Glucometerson 0 09-10-2024 Commemt1 Glu2: Cleaned Meter Normal [facility] Comment on above: Result Comment: PERF ORMED BY: [place] [address] PATHOLOGIST ASSISTANT MERCHANDISE MANAGER LE MACE M.D. Performed By: #### C MP, MG, PHOS, CBC #### [facility] [address] [place] [address] No Panel InformationOrdered By: Imad Asaad on 09-10-2024 Miscellaneous Pathology Test See comment [facility] Comment on above: See report. Scanned copy available in EMR. Bedside Glucose Comment Glu2: cleaned meter [facility] Pathology Request for Lab Co rpon 09-10-2024 Pathology Request for Lab Rory Normal [facility] Comment on above: Order Comment: FASTI NG N Result Comment: See report. Scanned copy available in EMR. PERFORMED BY: [place] [address] PATHOLOGIST ASSISTANT MERCHANDISE MANAGER LE MACE M.D. Performed By: #### L IPID, BMP #### [facility] [address] [place] [address] HbA1c HPLC (Bld) [Mass fract ion]on 08-20-2024 HbA1c (Bld) [Mass fraction] Hemoglobin A1c/Hemoglobin.total in Blood by HPLC [facility] HbA1c (Bld) [Mass fraction] 8.8 % [facility] No Panel Informationon 08-20 Bedside Glucose [address] [facility] US ankle/arm indiceson 07-23 US ankle/arm indices [facility] [address] [place] [address] Ultrasound Report Signed Patient: Taye Gay MR#: [id number] 19 : 1955 Acct:[id number] Age/Sex: 68 / F ADM Date: 07/22/24 Loc: [facility] Room: Type: [facility] Attending Dr: Tray Nava MD Ordering Provider: [...] Eugenio Rob M.D.07/23/2024 9:21 AM Dictation Location: [place] [address] Tech: Carmelita Horowitz Transcribed By: AMY 07/23/24920 Dictated By: Eugenio Rob MD 07/23/24919 Signed By: 07/23/24920 Normal [facility] Urine Cultureon 07-06-2024 Bacteria identified Cx Nom (U) ORGANISM: Klebsiella oxytoca (O:KLEOXY) [place] Count >100,000 Aerobic FAMILIA Charge (NMIC56) - [...] <2 Tobramycin S <2 Trimethoprim/Sulfamethox azole S 11/19 S = SUSCEPTIBLE I = INTERMEDIATE R [...] RESISTANT TO ALL B-LACTAM DRUGS. PERFORMED BY: [place] [address] PATHOLOGIST ASSISTANT MERCHANDISE MANAGER LE MACE M.D. Normal [facility] Comment on above: Performed By: #### T SH3 wRFLX, LIPID #### [address] Urine cultureOrdered By: Columba Frost on 07-06-2024 Bacteria identified Cx Nom (U) Abnormal [facility] Alanine aminotransferase [En zymatic activity/volume] in Serum or PlasmaOrdered By: Angelique Russell on 06-26-2024 ALT [Catalytic activity/Vol] Alanine aminotransferase [Enzymatic activity/volume] in Serum or Plasma 7-[address] [facility] Albumin [Mass/volume] in Ser um or Plasma by Bromocresol green (BCG) dye binding methoOrdered By: Angelique Russell on 06-26-2024 Albumin BCG dye [Mass/Vol] Albumin [Mass/volume] in Serum or Plasma by Bromocresol green (BCG) dye binding metho 3.5-5.[address] [facility] Alkaline phosphatase [Enzyma tic activity/volume] in Serum or PlasmaOrdered By: Angelique Russell on 06-26-2024 ALP [Catalytic activity/Vol] Alkaline phosphatase [Enzymatic activity/volume] in Serum or Plasma 34-[address] [facility] Aspartate aminotransferase [ Enzymatic activity/volume] in Serum or PlasmaOrdered By: Angelique Russell on 06-26-2024 AST [Catalytic activity/Vol] Aspartate aminotransferase [Enzymatic activity/volume] in Serum or Plasma 13-[address] [facility] B-Type Natriuretic Peptideon 06-26-2024 Natriuretic peptide B (Bld) [Mass/Vol] 54.0 pg/mL Normal 5-100 [facility] Comment on above: Result Comment: PERF ORMED BY: [place] [address] PATHOLOGIST ASSISTANT MERCHANDISE MANAGER LE MACE M.D. Performed By: #### T SH3 wRFLX, LIPID #### [facility] [address] BCR-ABL Neogenomicon 025 BCR-ABL Neogenomic Normal [facility] Comment on above: Result Comment: See report. Scanned copy available in EMR. PERFORMED BY: [place] [address] PATHOLOGIST ASSISTANT MERCHANDISE MANAGER LE MACE M.D. Performed By: #### C MP, MG, PHOS, CBC #### [place] [id number] [facility] Basophils Auto (Bld) [#/Vol] Ordered By: Nataliya Jane on 06-26-2024 Basophils (Bld) [#/Vol] Automated basophil count 0.0-0.[address] [facility] Basophils/100 WBC Auto (Bld) Ordered By: Nataliya Jane on 06-26-2024 Basophils/100 WBC (Bld) Automated basophil % . [facility] Bilirubin.total [Mass/volume ] in Serum or PlasmaOrdered By: Angelique Russell on 06-26-2024 Bilirubin [Mass/Vol] Bilirubin.total [Mass/volume] in Serum or Plasma 0.3-1.[address] [facility] CBC W Auto Differential pane l (Bld)on 06-26-2024 Basophils (Bld) [#/Vol] 0 10*3/uL 0.0 - 0.2 10*3/uL [facility] Basophils/100 WBC Manual cnt (Syn fld) 0.5 % . [facility] Eosinophils (Bld) [#/Vol] 0.2 10*3/uL 0.0 - 0.45 10*3/uL [facility] Eosinophils/100 WBC Manual cnt (Syn fld) 2.7 % . [facility] Erythrocyte distribution width (RBC) [Ratio] 14.6 % 11.9 - 15.3 % [facility] Hematocrit (Bld) [Volume fraction] 46.4 % 34.0 - 46.4 % [facility] Hemoglobin (Bld) [Mass/Vol] 15.8 g/dL High 11.8 - 15.4 g/dL [facility] Interpretation and review of laboratory results Abnormal [facility] Lymphocytes (Bld) [#/Vol] 1.6 10*3/uL 1.00 - 4.8 10*3/uL [facility] Lymphocytes/100 WBC Manual cnt (Syn fld) 23.1 % . [facility] MCH (RBC) [Entitic mass] 32.6 pg 24.7 - 34.3 pg [facility] MCHC (RBC) [Mass/Vol] 34.2 g/dL 32.0 - 35.0 g/dL [facility] MCV (RBC) [Entitic vol] 95.3 fL 80 - 100 fL [facility] Monocytes (Bld) [#/Vol] 0.5 10*3/uL 0.0 - 0.8 10*3/uL [facility] Monocytes+Macrophages/1 00 WBC Manual cnt (Syn fld) 6.6 % . [facility] Neutrophils (Bld) [#/Vol] 4.6 10*3/uL 1.8 - 7.7 10*3/uL [facility] Neutrophils/100 WBC Manual cnt (Syn fld) 67.1 % . [facility] NRBC 0.1 /100{WBC} 0 - 0.5 /100{WBC} [facility] Platelet mean volume (Bld) [Entitic vol] 10.4 fL 6.3 - 10.7 fL [facility] Platelets (Bld) [#/Vol] 120 10*3/uL Low 150 - 450 10*3/uL [facility] RBC LM.HPF (Urine sed) [#/Area] 4.86 10*6/uL 3.60 - 5.00 10*6/uL [facility] WBC (Bld) [#/Vol] 6.9 10*3/uL 3.8 - 11.6 10*3/uL [facility] WBC LM.HPF (Urine sed) [#/Area] 6.9 10*3/uL 3.8 - 11.6 10*3/uL [facility] Calcium [Mass/volume] in Ser um or PlasmaOrdered By: Angelique Russell on 06-26-2024 Calcium [Mass/Vol] Calcium [Mass/volume ] in Serum or Plasma 8.6-10.[address] [facility] Carbon dioxide, total [Moles /volume] in Serum or PlasmaOrdered By: Angelique Russell on 06-26-2024 CO2 [Moles/Vol] Carbon dioxide, tota l [Moles/volume] in Serum or Plasma 21.0-31.[address] [facility] Chloride [Moles/volume] in S elliot or PlasmaOrdered By: Angelique Russell on 06-26-2024 Chloride [Moles/Vol] Chloride [Moles/vol ume] in Serum or Plasma 98-[address] [facility] Cholesterol [Mass/volume] in Serum or PlasmaOrdered By: Angelique Russell on 06-26-2024 Cholesterol [Mass/Vol] Cholesterol [Mass/volume] in Serum or Plasma Low 140-[address] [facility] Comment on above: Chol less than 200 m g/dl low riskChol 201-239 mg/dl borderline riskChol 240 mg/dl and greater high risk Cholesterol in HDL [Mass/vol ume] in Serum or PlasmaOrdered By: Angelique Russell on 06-26-2024 Cholesterol in HDL [Mass/Vol] Serum or plasma high density lipoprotein (HDL) cholesterol measurement 23-[address] [facility] Comment on above: HDL CHOL ATP-III CLA SSIFICATION Cardiovascular RiskHDL > or equal to 60 mg/dL LOWHDL < 40 mg/dL HIGH Cholesterol in LDL Calc [Mas s/Vol]Ordered By: Angelique Russell on 06-26-2024 Cholesterol in LDL [Mass/Vol] Cholesterol in LDL [Mass/volume] in Serum or Plasma by calculation 0-[address] [facility] Comment on above: LDL ATP III CLASSIFI CATIONLDL less than 100 mg/dL OptimalLDL 100-129 mg/dL Near or above optimalLDL 130-159 mg/dL Borderline highLDL 160-189 mg/dL HighLDL greater than 189 mg/dL Very high Cholesterol in VLDL Calc [Ma ss/Vol]Ordered By: Angelique Russell on 06-26-2024 Cholesterol in VLDL [Mass/Vol] Cholesterol in VLDL [Mass/volume] in Serum or Plasma by calculation [facility] Complete Blood Count Auto Di ffon 06-26-2024 Basophils (Bld) [#/Vol] 0.0 10*3/uL Normal 0.0-0.2 [facility] Comment on above: Result Comment: PERF ORMED BY: [place] [address] PATHOLOGIST ASSISTANT MERCHANDISE MANAGER LE MACE M.D. Performed By: #### L IPID, BMP #### [address] Basophils/100 WBC (Bld) 0.5 % Normal . [facility] Comment on above: Performed By: #### L IPID, BMP #### [address] Eosinophils (Bld) [#/Vol] 0.2 10*3/uL Normal 0.0-0.45 [facility] Comment on above: Performed By: #### L IPID, BMP #### [address] Eosinophils/100 WBC (Bld) 2.7 % Normal . [facility] Comment on above: Performed By: #### L IPID, BMP #### [address] Erythrocyte distribution width (RBC) [Ratio] 14.6 % Normal 11.9-15.3 [facility] Comment on above: Performed By: #### L IPID, BMP #### [address] Hematocrit (Bld) [Volume fraction] 46.4 % Normal 34.0-46.4 [facility] Comment on above: Performed By: #### L IPID, BMP #### [address] Hemoglobin (Bld) [Mass/Vol] 15.8 g/dL High 11.8-15.4 [facility] Comment on above: Performed By: #### L IPID, BMP #### [address] [address] [place] Lymphocytes (Bld) [#/Vol] 1.6 10*3/uL Normal 1.00-4.8 [facility] Comment on above: Performed By: #### L IPID, BMP #### [address] Lymphocytes/100 WBC (Bld) 23.1 % Normal . [facility] Comment on above: Performed By: #### L IPID, BMP #### [address] MCH (RBC) [Entitic mass] 32.6 pg Normal 24.7-34.3 [facility] Comment on above: Performed By: #### L IPID, BMP #### [address] MCV (RBC) [Entitic vol] 95.3 fL Normal 80-100 [facility] Comment on above: Performed By: #### L IPID, BMP #### [address] Mean Corpuscular HGB Conc 34.2 g/dL Normal 32.0-35.0 [facility] Comment on above: Performed By: #### L IPID, BMP #### [address] Monocytes (Bld) [#/Vol] 0.5 10*3/uL Normal 0.0-0.8 [facility] Comment on above: Performed By: #### L IPID, BMP #### [place] [address] [place] Monocytes/100 WBC (Bld) 6.6 % Normal . [facility] Comment on above: Performed By: #### L IPID, BMP #### [address] Neutrophils (Bld) [#/Vol] 4.6 10*3/uL Normal 1.8-7.7 [facility] Comment on above: Performed By: #### L IPID, BMP #### [address] Neutrophils/100 WBC (Bld) 67.1 % Normal . [facility] Comment on above: Performed By: #### L IPID, BMP #### [address] NRBC% 0.1 /100{WBC} Normal 0-0.5 [facility] Comment on above: Performed By: #### L IPID, BMP #### [address] Platelet mean volume (Bld) [Entitic vol] 10.4 fL Normal 6.3-10.7 [facility] Comment on above: Performed By: #### L IPID, BMP #### [address] Platelets (Bld) [#/Vol] 120 10*3/uL Low 150-450 [facility] Comment on above: Performed By: #### L IPID, BMP #### [address] RBC (Bld) [#/Vol] 4.86 10*6/uL Normal 3.60-5.00 [facility] Comment on above: Performed By: #### L IPID, BMP #### [address] WBC (Bld) [#/Vol] 6.9 10*3/uL Normal 3.8-11.6 [facility] Comment on above: Performed By: #### L IPID, BMP #### [address] Comprehensive Metabolic Pane juan 06-26-2024 Albumin [Mass/Vol] 3.8 g/dL Normal 3.5-5.7 [facility] Comment on above: Performed By: #### T SH3 wRFLX, LIPID #### [address] Albumin/Globulin [Mass ratio] 1.5 {ratio} Normal [facility] Comment on above: Performed By: #### T SH3 wRFLX, LIPID #### [address] ALP [Catalytic activity/Vol] 92 U/L Normal 34-104 [facility] Comment on above: Result Comment: PERF ORMED BY: [place] [address] PATHOLOGIST ASSISTANT MERCHANDISE MANAGER LE MACE M.D. Performed By: #### T SH3 wRFLX, LIPID #### [address] ALT [Catalytic activity/Vol] 23 U/L Normal 7-52 [facility] Comment on above: Performed By: #### T SH3 wRFLX, LIPID #### [address] Anion gap [Moles/Vol] 12.2 mmol/L Normal 6.0-15.0 [facility] Comment on above: Performed By: #### T SH3 wRFLX, LIPID #### [address] AST [Catalytic activity/Vol] 36 U/L Normal 13-39 [facility] Comment on above: Performed By: #### T SH3 wRFLX, LIPID #### [address] Bilirubin [Mass/Vol] 0.4 mg/dL Normal 0.3-1.0 [facility] Comment on above: Performed By: #### T SH3 wRFLX, LIPID #### [place] [address] [place] Calcium [Mass/Vol] 9.4 mg/dL Normal 8.6-10.3 [facility] Comment on above: Performed By: #### T SH3 wRFLX, LIPID #### [place] [address] [place] Chloride [Moles/Vol] 103 mmol/L Normal 98-107 [facility] Comment on above: Performed By: #### T SH3 wRFLX, LIPID #### [address] [place] [address] [place] CO2 [Moles/Vol] 29.0 mmol/L Normal 21.0-31.0 [facility] Comment on above: Performed By: #### T SH3 wRFLX, LIPID #### [facility] [address] [place] [id number] [place] Creatinine [Mass/Vol] 0.93 mg/dL Normal 0.60-1.20 [facility] Comment on above: Performed By: #### T SH3 wRFLX, LIPID #### [facility] [address] [place] [address] [place] GFR/1.73 sq M.predicted MDRD (S/P/Bld) [Vol rate/Area] mL/min/{1.73_m2} Normal [facility] Comment on above: Performed By: #### T SH3 wRFLX, LIPID #### [place] [address] [place] Globulin (S) [Mass/Vol] 2.6 g/dL Normal T [facility] Comment on above: Performed By: #### T SH3 wRFLX, LIPID #### [address] Glucose [Mass/Vol] 256 mg/dL High 70-100 [facility] Comment on above: Result Comment: [place] Glucose Reference Range is dependent on time and content of last meal. Glucose of more than 200 mg/dL in a nonstressed, ambulatory subject supports the diagnosis of Diabetes Mellitus. ADA recommended reference range Performed By: #### T SH3 wRFLX, LIPID #### [facility] [address] [place] [address] [place] Potassium [Moles/Vol] 4.2 mmol/L Normal 3.5-5.1 [facility] Comment on above: Performed By: #### T SH3 wRFLX, LIPID #### [facility] [address] [place] [id number] [place] Protein [Mass/Vol] 6.4 g/dL Normal 6.4-8.9 [facility] Comment on above: Performed By: #### T SH3 wRFLX, LIPID #### [facility] [address] [place] [address] [place] Sodium [Moles/Vol] 140 mmol/L Normal 136-145 [facility] Comment on above: Performed By: #### T SH3 wRFLX, LIPID #### [facility] [address] [place] [address] [place] Urea nitrogen [Mass/Vol] 9 mg/dL Normal 7-25 [facility] Comment on above: Performed By: #### T SH3 wRFLX, LIPID #### [facility] [address] [place] [id number] [place] Creatinine [Mass/volume] in Serum or PlasmaOrdered By: Angelique Russell on 06-26-2024 Creatinine [Mass/Vol] Creatinine [Mass/v olume] in Serum or Plasma 0.60-1.[address] [facility] Creatinine [Mass/volume] in UrineOrdered By: Angelique Russell on 06-26-2024 Creatinine (U) [Mass/Vol] Creatinine [Mass/volume] in Urine [facility] Comment on above: No reference range e stablished ECG 12 [place] 06-26-2024 Normal sinus rhythm [facility] Work Phone: Eosinophils Auto (Bld) [#/Vo l]Ordered By: Nataliya Jane on 06-26-2024 Eosinophils (Bld) [#/Vol] Automated eosinophil count 0.0-0.[address] [facility] Eosinophils/100 WBC Auto (Bl d)Ordered By: Nataliya Jane on 06-26-2024 Eosinophils/100 WBC (Bld) Automated eosinophil % . [facility] Erythrocyte distribution wid th Auto (RBC) [Ratio]Ordered By: Nataliya Jane on 06-26-2024 Erythrocyte distribution width (RBC) [Ratio] Erythrocyte distribution width [Ratio] by Automated count 11.9-15.[address] [facility] Flowcytometry Neogenomicon 0 06-26-2024 Flowcytometry Neogenomic Normal [facility] Comment on above: Result Comment: See report. Scanned copy available in EMR. Performed By: #### C MP, MG, PHOS, CBC #### [facility] [address] [id number] [facility] Globulin Calc (S) [Mass/Vol] Ordered By: Angelique Russell on 06-26-2024 Globulin (S) [Mass/Vol] Serum globulin measurement by calculation (mass/volume) [facility] Glucose [Mass/volume] in Ser um or PlasmaOrdered By: Angelique Russell on 06-26-2024 Glucose [Mass/Vol] Glucose [Mass/volume ] in Serum or Plasma High 70-[address] [facility] Comment on above: ADA recommended refe rence rangeRandom Glucose Reference Range is dependent on time and content of last meal. Glucose of more than 200 mg/dL in a nonstressed, ambulatory subject supports the diagnosis of Diabetes Mellitus. Hematocrit Auto (Bld) [Volum e fraction]Ordered By: Nataliya Jane on 06-26-2024 Hematocrit (Bld) [Volume fraction] Hematocrit [Volume Fraction] of Blood by Automated count 34.0-46.[address] [facility] Hemoglobin [Mass/volume] in BloodOrdered By: Nataliya Jane on 06-26-2024 Hemoglobin (Bld) [Mass/Vol] Hemoglobin [Mass/volume] in Blood High 11.8-15.[address] [facility] FERDINAND 2 Neogenomicon FERDINAND 2 Neogenomic Normal [facility] Comment on above: Result Comment: See report. Scanned copy available in EMR. Performed By: #### C MP, MG, PHOS, CBC #### [facility] [address] [place], [place] [id number] [facility] Leukocytes [#/volume] correc deepika for nucleated erythrocytes in Blood by Automated counOrdered By: Nataliya Jane on 06-26-2024 WBC corrected for nucl RBC Auto (Bld) [#/Vol] Leukocytes [#/volume] corrected for nucleated erythrocytes in Blood by Automated coun 3.8-11.[address] [facility] Lipid Panelon 06-26-2024 Cholesterol [Mass/Vol] 93 mg/dL Low 140-200 [facility] Comment on above: Result Comment: Chol less than 200 mg/dl low risk Chol 201-239 mg/dl borderline risk Chol 240 mg/dl and greater high risk Performed By: #### T SH3 wRFLX, LIPID #### [facility] [address] Cholesterol in HDL [Mass/Vol] 27 mg/dL Normal 23-92 [facility] Comment on above: Result Comment: HDL CHOL ATP-III CLASSIFICATION Cardiovascular Risk HDL > or equal to 60 mg/dL LOW HDL < 40 mg/dL HIGH Performed By: #### T SH3 wRFLX, LIPID #### [facility] [address] Cholesterol.total/Monica sterol in HDL [Mass ratio] 3.4 {ratio} Normal <5.0 [facility] Comment on above: Performed By: #### T SH3 wRFLX, LIPID #### [facility] [address] LDL Cholesterol,Calculated 34 mg/dL Normal 0-100 [facility] Comment on above: Result Comment: LDL ATP III CLASSIFICATION LDL less than 100 mg/dL Optimal LDL 100-129 mg/dL Near or above optimal LDL 130-159 mg/dL Borderline high LDL 160-189 mg/dL High LDL greater than 189 mg/dL Very high Performed By: #### T SH3 wRFLX, LIPID #### [facility] [address] Triglyceride w/Reflex 162 mg/dL High 0-149 [facility] Comment on above: Result Comment: TRIG ATP III CLASSIFICATION TRIG less than 150 mg/dL Normal TRIG 150-199 mg/dL Borderline high TRIG 200-500 mg/dL High TRIG greater than 500 mg/dL Very high Standard traceable to the Center for Disease Conrtrol and Prevention (CDC) test method. Performed By: #### T SH3 wRFLX, LIPID #### [facility] [address] [id number] [facility] VLDL CHOLESTEROL 32 mg/dL Normal [facility] Comment on above: Performed By: #### T SH3 wRFLX, LIPID #### [facility] [address] [id number] [place] Lymphocytes Auto (Bld) [#/Vo l]Ordered By: Nataliya Jane on 06-26-2024 Lymphocytes (Bld) [#/Vol] Lymphocytes [#/volume] in Blood by Automated count 1.00-4.[address] [facility] Lymphocytes/100 WBC Auto (Bl d)Ordered By: Nataliya Lucinda on 06-26-2024 Lymphocytes/100 WBC (Bld) Lymphocytes/100 leukocytes in Blood by Automated count . [facility] MCH Auto (RBC) [Entitic mass ]Ordered By: Natlaiya Jane on 06-26-2024 MCH (RBC) [Entitic mass] MCH [Entitic mass] by Automated count 24.7-34.[address] [facility] MCHC Auto (RBC) [Mass/Vol]Or dered By: Nataliya Jane on 06-26-2024 MCHC (RBC) [Mass/Vol] MCHC [Mass/volume] by Automated count 32.0-35.[address] [facility] MCV Auto (RBC) [Entitic vol] Ordered By: Nataliya Jane on 06-26-2024 MCV (RBC) [Entitic vol] MCV [Entitic vol ume] by Automated count 80-[address] [facility] MicroAlb Creat Ratio,Uon Albumin DL <= 20 mg/L (U) [Mass/Vol] mg/dL Normal 0.0-1.8 [facility] Comment on above: Performed By: #### C MP, MG, PHOS, CBC #### [address] Creatinine, Urine (Random) 65.00 mg/dL Normal [facility] Comment on above: Result Comment: No r eference range established Performed By: #### C MP, MG, PHOS, CBC #### [address] Microalbumin/Creatinine Ratio Not performed Normal 0.0-30.0 [facility] Comment on above: Result Comment: PERF ORMED BY: [place] [address] PATHOLOGIST ASSISTANT MERCHANDISE MANAGER LE MACE M.D. Performed By: #### C MP, MG, PHOS, CBC #### [address] Microalbumin [Mass/volume] i n UrineOrdered By: Angelique Russell on 06-26-2024 Albumin DL <= 20 mg/L (U) [Mass/Vol] Microalbumin [Mass/volume] in Urine 0.0-1.[address] [facility] Monocytes Auto (Bld) [#/Vol] Ordered By: Nataliya Jane on 06-26-2024 Monocytes (Bld) [#/Vol] Automated blood monocyte count 0.0-0.[address] [facility] Monocytes/100 WBC Auto (Bld) Ordered By: Nataliya Jane on 06-26-2024 Monocytes/100 WBC (Bld) Automated monocyte % . [facility] Natriuretic peptide B [Mass/ Vol]Ordered By: Roland Faust on 06-26-2024 Natriuretic peptide B (Bld) [Mass/Vol] BNP ser/plas 5-[address] [facility] Neutrophils Auto (Bld) [#/Vo l]Ordered By: Nataliya Jane on 06-26-2024 Neutrophils (Bld) [#/Vol] Neutrophils [#/volume] in Blood by Automated count 1.8-7.[address] [facility] Neutrophils/100 WBC Auto (Bl d)Ordered By: Nataliya Jane on 06-26-2024 Neutrophils/100 WBC (Bld) Automated neutrophil % . [facility] No Panel InformationOrdered By: Angelique Russell on 06-26-2024 Estimated GFR (CKD-EPI) > 60.0 mL/Min [facility] Pharmacy Creatinine Clearance (Chem N/A [facility] No Panel InformationOrdered By: Nataliya Jane on 06-26-2024 BCR/abl See comment [facility] Comment on above: See report. Scanned copy available in EMR. JAK2 [id number] See comment [facility] Comment on above: See report. Scanned copy available in EMR. Nucleated erythrocytes [Pres ence] in Blood by Automated countOrdered By: Nataliya Jane on 06-26-2024 Nucleated RBC Auto Ql (Bld) Nucleated erythrocytes [Presence] in Blood by Automated count 0-0.[address] [facility] Platelet mean volume Auto (B ld) [Entitic vol]Ordered By: Nataliya Jane on 06-26-2024 Platelet mean volume (Bld) [Entitic vol] Platelet mean volume [Entitic volume] in Blood by Automated count 6.3-10.[address] [facility] Platelets Auto (Bld) [#/Vol] Ordered By: Nataliya Jane on 06-26-2024 Platelets (Bld) [#/Vol] Platelets [#/vol ume] in Blood by Automated count Low 150-[address] [facility] Potassium [Moles/volume] in Serum or PlasmaOrdered By: Angelique Russell on 06-26-2024 Potassium [Moles/Vol] Potassium [Moles/v olume] in Serum or Plasma 3.5-5.[address] [facility] Protein [Mass/volume] in Ser um or PlasmaOrdered By: Angelique Russell on 06-26-2024 Protein [Mass/Vol] Protein [Mass/volume ] in Serum or Plasma 6.4-8.[address] [facility] RBC Auto (Bld) [#/Vol]Ordere d By: Nataliya Jane on 06-26-2024 RBC (Bld) [#/Vol] Erythrocytes [#/volu me] in Blood by Automated count 3.60-5.[address] [facility] Serum or plasma albumin/glob ulin mass ratioOrdered By: Angelique Russell on 06-26-2024 Albumin/Globulin [Mass ratio] Serum or plasma albumin/globulin mass ratio [facility] Serum or plasma anion gap de terminationOrdered By: Angelique Russell on 06-26-2024 Anion gap [Moles/Vol] Serum or plasma an ion gap determination 6.0-15.[address] [facility] Serum or plasma total choles terol/high density lipoprotein (HDL) cholesterol mass ratOrdered By: Angelique Russell on 06-26-2024 Cholesterol.total/Monica sterol in HDL [Mass ratio] Serum or plasma total cholesterol/high density lipoprotein (HDL) cholesterol mass rat <5.[address] [facility] Sodium [Moles/volume] in Ser um or PlasmaOrdered By: Angelique Russell on 06-26-2024 Sodium [Moles/Vol] Sodium [Moles/volume ] in Serum or Plasma 136-[address] [facility] Thyroid Stim Hormone w/Rflxo n 06-26-2024 Thyroid Stim Hormone w/Rflx 1.45 u[iU]/mL Normal 0.45-5.33 [facility] Comment on above: Result Comment: PERF ORMED BY: [place] [address] PATHOLOGIST ASSISTANT MERCHANDISE MANAGER LE MACE M.D. Performed By: #### T SH3 wRFLX, LIPID #### [place] [address] [place] Thyrotropin [Units/volume] i n Serum or PlasmaOrdered By: Angelique Russell on 06-26-2024 TSH Qn Thyrotropin [Units/volume] in Serum or Plasma 0.45-5.[address] [facility] Triglyceride [Mass/volume] i n Serum or PlasmaOrdered By: Angelique Russell on 06-26-2024 Triglyceride [Mass/Vol] Triglyceride [Mass/volume] in Serum or Plasma High 0-[address] [facility] Comment on above: TRIG ATP [...] nitrogen [Mass/volume] in Serum or Plasma 11-[address] [facility] Urine microalbumin/creatinin e mass ratioOrdered By: Angelique Russell on 06-26-2024 Albumin/Creatinine DL <= 20 mg/L (U) [Mass ratio] Urine microalbumin/creatinine mass ratio [facility] Comment on above: Test not performed WBC Auto (Bld) [#/Vol]Ordere d By: Nataliya Jane on 06-26-2024 WBC (Bld) [#/Vol] Leukocytes [#/volume ] in Blood by Automated count 3.8-11.[address] [facility] MR head/brain wo/w conon MR head/brain wo/w con [facility] Main [place] [address] [place] [address] MRI Report Signed Patient: Taye Gay MR#: [id number] 19 : 1955 Acct:[id number] Age/Sex: 68 / F ADM Date: 05/25/24 Loc: MR [facility]: [facility]: Sandra Keita DO Copies to: [...] Eugenio Lazo M.D.05/25/2024 7:59 PM Dictation Location: [address] [address] Transcribed By: [facility] 05/25/241958 Dictated By: Eugenio Lazo DO 05/25/241953 Signed By: 05/25/241958 Normal [facility] Magnetic resonance imaging r eportOrdered By: Eugenio Lazo on 05-25-2024 Study report [facility] Main [place] [address] [place] [id number] MRI Report Signed Patient: Taye Gay MR#: [id number] : 1955 Acct:[id number] Age/Sex: 68 / F ADM Date: 5 Loc: MR Room: Type: [facility] CLI Attending Dr: Sandra Keita DO Copies [...] Eugenio Lazo M.D.05/25/2024 7:59 PM Dictation Location: [address] [address] Transcribed By: [facility] 05/25/241958 Dictated By: Eugenio Lazo DO 05/25/241953 Signed By: 05/25/24[address] [facility] Alanine aminotransferase [En zymatic activity/volume] in Serum or PlasmaOrdered By: Priscilla Lang on 04-30-2024 ALT [Catalytic activity/Vol] Alanine aminotransferase [Enzymatic activity/volume] in Serum or Plasma 7-[address] [facility] Albumin [Mass/volume] in Ser um or Plasma by Bromocresol green (BCG) dye binding methoOrdered By: Priscilla Lang on 04-30-2024 Albumin BCG dye [Mass/Vol] Albumin [Mass/volume] in Serum or Plasma by Bromocresol green (BCG) dye binding metho 3.5-5.[address] [facility] Alkaline phosphatase [Enzyma tic activity/volume] in Serum or PlasmaOrdered By: Priscilla Lang on 04-30-2024 ALP [Catalytic activity/Vol] Alkaline phosphatase [Enzymatic activity/volume] in Serum or Plasma 34-[address] [facility] Aspartate aminotransferase [ Enzymatic activity/volume] in Serum or PlasmaOrdered By: Priscilla Lang on 04-30-2024 AST [Catalytic activity/Vol] Aspartate aminotransferase [Enzymatic activity/volume] in Serum or Plasma 13-[address] [facility] Basophils Auto (Bld) [#/Vol] Ordered By: Priscilla Lang on 04-30-2024 Basophils (Bld) [#/Vol] Automated basophil count 0.0-0.[address] [facility] Basophils/100 WBC Auto (Bld) Ordered By: Priscilla Lang on 04-30-2024 Basophils/100 WBC (Bld) Automated basophil % . [facility] Bilirubin.total [Mass/volume ] in Serum or PlasmaOrdered By: Priscilla Lang on 04-30-2024 Bilirubin [Mass/Vol] Bilirubin.total [Mass/volume] in Serum or Plasma 0.3-1.[address] [facility] Calcium [Mass/volume] in Ser um or PlasmaOrdered By: Priscilla Aggarwal on 04-30-2024 Calcium [Mass/Vol] Calcium [Mass/volume ] in Serum or Plasma 8.6-10.[address] [facility] Carbon dioxide, total [Moles /volume] in Serum or PlasmaOrdered By: Priscilla Aggarwal on 04-30-2024 CO2 [Moles/Vol] Carbon dioxide, tota l [Moles/volume] in Serum or Plasma 21.0-31.[address] [facility] Chloride [Moles/volume] in S elliot or PlasmaOrdered By: Bhargav Alessia on 04-30-2024 Chloride [Moles/Vol] Chloride [Moles/vol ume] in Serum or Plasma 98-[address] [facility] Complete Blood Count Auto Di ffon 04-30-2024 Basophils (Bld) [#/Vol] 0.0 10*3/uL Normal 0.0-0.2 [facility] Comment on above: Result Comment: PERF ORMED BY: [place] [address] PATHOLOGIST ASSISTANT MERCHANDISE MANAGER LE MACE M.D. Performed By: #### C MP, MG, PHOS, CBC #### [address] Basophils/100 WBC (Bld) 0.4 % Normal . T [facility] Comment on above: Performed By: #### C MP, MG, PHOS, CBC #### [address] Eosinophils (Bld) [#/Vol] 0.2 10*3/uL Normal 0.0-0.45 [facility] Comment on above: Performed By: #### C MP, MG, PHOS, CBC #### [address] Eosinophils/100 WBC (Bld) 2.9 % Normal . [facility] Comment on above: Performed By: #### C MP, MG, PHOS, CBC #### [address] Erythrocyte distribution width (RBC) [Ratio] 15.4 % High 11.9-15.3 [facility] Comment on above: Performed By: #### C MP, MG, PHOS, CBC #### [address] Hematocrit (Bld) [Volume fraction] 44.3 % Normal 34.0-46.4 [facility] Comment on above: Performed By: #### C MP, MG, PHOS, CBC #### [address] Hemoglobin (Bld) [Mass/Vol] 14.7 g/dL Normal 11.8-15.4 [facility] Comment on above: Performed By: #### C MP, MG, PHOS, CBC #### [address] Lymphocytes (Bld) [#/Vol] 1.8 10*3/uL Normal 1.00-4.8 [facility] Comment on above: Performed By: #### C MP, MG, PHOS, CBC #### [address] Lymphocytes/100 WBC (Bld) 24.9 % Normal . [facility] Comment on above: Performed By: #### C MP, MG, PHOS, CBC #### [address] MCH (RBC) [Entitic mass] 31.4 pg Normal 24.7-34.3 [facility] Comment on above: Performed By: #### C MP, MG, PHOS, CBC #### [address] MCV (RBC) [Entitic vol] 94.4 fL Normal 80-100 [facility] Comment on above: Performed By: #### C MP, MG, PHOS, CBC #### [address] Mean Corpuscular HGB Conc 33.3 g/dL Normal 32.0-35.0 [facility] Comment on above: Performed By: #### C MP, MG, PHOS, CBC #### [address] Monocytes (Bld) [#/Vol] 0.6 10*3/uL Normal 0.0-0.8 [facility] Comment on above: Performed By: #### C MP, MG, PHOS, CBC #### [address] Monocytes/100 WBC (Bld) 8.3 % Normal . [facility] Comment on above: Performed By: #### C MP, MG, PHOS, CBC #### [address] Neutrophils (Bld) [#/Vol] 4.6 10*3/uL Normal 1.8-7.7 [facility] Comment on above: Performed By: #### C MP, MG, PHOS, CBC #### [address] Neutrophils/100 WBC (Bld) 63.5 % Normal . [facility] Comment on above: Performed By: #### C MP, MG, PHOS, CBC #### [address] NRBC% 0.0 /100{WBC} Normal 0-0.5 [facility] Comment on above: Performed By: #### C MP, MG, PHOS, CBC #### [address] Platelet mean volume (Bld) [Entitic vol] 9.5 fL Normal 6.3-10.7 [facility] Comment on above: Performed By: #### C MP, MG, PHOS, CBC #### [address] Platelets (Bld) [#/Vol] 119 10*3/uL Low 150-450 [facility] Comment on above: Performed By: #### C MP, MG, PHOS, CBC #### [address] RBC (Bld) [#/Vol] 4.70 10*6/uL Normal 3.60-5.00 [facility] Comment on above: Performed By: #### C MP, MG, PHOS, CBC #### [address] WBC (Bld) [#/Vol] 7.3 10*3/uL Normal 3.8-11.6 [facility] Comment on above: Performed By: #### C MP, MG, PHOS, CBC #### [address] Comprehensive Metabolic Pane juan 04-30-2024 Albumin [Mass/Vol] 3.5 g/dL Normal 3.5-5.7 [facility] Comment on above: Performed By: #### C MP, MG, PHOS, CBC #### [address] Albumin/Globulin [Mass ratio] 1.2 {ratio} Normal [facility] Comment on above: Performed By: #### C MP, MG, PHOS, CBC #### [address] ALP [Catalytic activity/Vol] 85 U/L Normal 34-104 [facility] Comment on above: Performed By: #### C MP, MG, PHOS, CBC #### [address] ALT [Catalytic activity/Vol] 16 U/L Normal 7-52 [facility] Comment on above: Performed By: #### C MP, MG, PHOS, CBC #### [address] Anion gap [Moles/Vol] 10.9 mmol/L Normal 6.0-15.0 [facility] Comment on above: Performed By: #### C MP, MG, PHOS, CBC #### [address] AST [Catalytic activity/Vol] 23 U/L Normal 13-39 [facility] Comment on above: Performed By: #### C MP, MG, PHOS, CBC #### [address] Bilirubin [Mass/Vol] 0.5 mg/dL Normal 0.3-1.0 [facility] Comment on above: Performed By: #### C MP, MG, PHOS, CBC #### [address] Calcium [Mass/Vol] 9.3 mg/dL Normal 8.6-10.3 [facility] Comment on above: Performed By: #### C MP, MG, PHOS, CBC #### [place] [address] [place] Chloride [Moles/Vol] 106 mmol/L Normal 98-107 [facility] Comment on above: Performed By: #### C MP, MG, PHOS, CBC #### [address] CO2 [Moles/Vol] 26.9 mmol/L Normal 21.0-31.0 [facility] Comment on above: Performed By: #### C MP, MG, PHOS, CBC #### [place] [address] [place] Creatinine [Mass/Vol] 0.80 mg/dL Normal 0.60-1.20 [facility] Comment on above: Performed By: #### C MP, MG, PHOS, CBC #### [address] Creatinine Clr Calc Pharmacy 82.38 Normal [facility] Comment on above: Performed By: #### C MP, MG, PHOS, CBC #### [address] GFR/1.73 sq M.predicted MDRD (S/P/Bld) [Vol rate/Area] mL/min/{1.73_m2} Normal [facility] Comment on above: Performed By: #### C MP, MG, PHOS, CBC #### [address] Globulin (S) [Mass/Vol] 2.9 g/dL Normal T [facility] Comment on above: Performed By: #### C MP, MG, PHOS, CBC #### [address] Glucose [Mass/Vol] 130 mg/dL High 70-100 [facility] Comment on above: Result Comment: [facility] Glucose Reference Range is dependent on time and content of last meal. Glucose of more than 200 mg/dL in a nonstressed, ambulatory subject supports the diagnosis of Diabetes Mellitus. ADA recommended reference range Performed By: #### C MP, MG, PHOS, CBC #### [address] Potassium [Moles/Vol] 3.8 mmol/L Normal 3.5-5.1 [facility] Comment on above: Performed By: #### C MP, MG, PHOS, CBC #### [address] Protein [Mass/Vol] 6.4 g/dL Normal 6.4-8.9 [facility] Comment on above: Performed By: #### C MP, MG, PHOS, CBC #### [address] [address] [place] Sodium [Moles/Vol] 140 mmol/L Normal 136-145 [facility] Comment on above: Performed By: #### C MP, MG, PHOS, CBC #### [facility] [address] [place] [address] [place] Urea nitrogen [Mass/Vol] 9 mg/dL Normal 7-25 [facility] Comment on above: Performed By: #### C MP, MG, PHOS, CBC #### [facility] [address] Creatinine [Mass/volume] in Serum or PlasmaOrdered By: Priscilla Lang on 04-30-2024 Creatinine [Mass/Vol] Creatinine [Mass/v olume] in Serum or Plasma 0.60-1.[address] [facility] Eosinophils Auto (Bld) [#/Vo l]Ordered By: Priscilla Lang on 04-30-2024 Eosinophils (Bld) [#/Vol] Automated eosinophil count 0.0-0.[address] [facility] Eosinophils/100 WBC Auto (Bl d)Ordered By: Priscilla Lang on 04-30-2024 Eosinophils/100 WBC (Bld) Automated eosinophil % . [facility] Erythrocyte distribution wid th Auto (RBC) [Ratio]Ordered By: Priscilla Lang on 04-30-2024 Erythrocyte distribution width (RBC) [Ratio] Erythrocyte distribution width [Ratio] by Automated count High 11.9-15.[address] [facility] Globulin Calc (S) [Mass/Vol] Ordered By: Priscilla Lang on 04-30-2024 Globulin (S) [Mass/Vol] Serum globulin measurement by calculation (mass/volume) [facility] Glucose Glucometer (BldC) [M ass/Vol]Ordered By: Priscilla Lang on 04-30-2024 Glucose [Mass/Vol] Capillary blood gluc ose measurement by glucometer (mass/volume) [facility] Comment on above: Random Glucose Refer ence Range is dependent on time and content of last meal. Glucose of more than 200 mg/dL in a nonstressed, ambulatory subject supports the diagnosis of Diabetes Mellitus. Glucose Poct Glucometerson 0 04-30-2024 Glucose [Mass/Vol] 154 mg/dL Normal [facility] Comment on above: Result Comment: [place] [facility] Glucose Reference Range is dependent on time and content of last meal. Glucose of more than 200 mg/dL in a nonstressed, ambulatory subject supports the diagnosis of Diabetes Mellitus. PERFORMED BY: [place] [address] PATHOLOGIST ASSISTANT MERCHANDISE MANAGER LE MACE M.D. Performed By: #### C MP, MG, PHOS, CBC #### [facility] [address] [place] [address] Glucose [Mass/Vol] 134 mg/dL Normal [facility] Comment on above: Result Comment: [place] [facility] Glucose Reference Range is dependent on time and content of last meal. Glucose of more than 200 mg/dL in a nonstressed, ambulatory subject supports the diagnosis of Diabetes Mellitus. PERFORMED BY: [place] [address] PATHOLOGIST ASSISTANT MERCHANDISE MANAGER LE MACE M.D. Performed By: #### T SH3 wRFLX, LIPID #### [facility] [address] [place], [place] [id number] [facility] Glucose [Mass/volume] in Ser um or PlasmaOrdered By: Priscilla Lang on 04-30-2024 Glucose [Mass/Vol] Glucose [Mass/volume ] in Serum or Plasma High 70-[address] [facility] Comment on above: ADA recommended refe rence rangeRandom Glucose Reference Range is dependent on time and content of last meal. Glucose of more than 200 mg/dL in a nonstressed, ambulatory subject supports the diagnosis of Diabetes Mellitus. Hematocrit Auto (Bld) [Volum e fraction]Ordered By: Priscilla Lang on 04-30-2024 Hematocrit (Bld) [Volume fraction] Hematocrit [Volume Fraction] of Blood by Automated count 34.0-46.[address] [facility] Hemoglobin [Mass/volume] in BloodOrdered By: Priscilla Lang on 04-30-2024 Hemoglobin (Bld) [Mass/Vol] Hemoglobin [Mass/volume] in Blood 11.8-15.4 [facility] Leukocytes [#/volume] correc deepika for nucleated erythrocytes in Blood by Automated counOrdered By: Priscilla Lang on 04-30-2024 WBC corrected for nucl RBC Auto (Bld) [#/Vol] Leukocytes [#/volume] corrected for nucleated erythrocytes in Blood by Automated coun 3.8-11.[address] [facility] Lymphocytes Auto (Bld) [#/Vo l]Ordered By: Priscilla Lang on 04-30-2024 Lymphocytes (Bld) [#/Vol] Lymphocytes [#/volume] in Blood by Automated count 1.00-4.[address] [facility] Lymphocytes/100 WBC Auto (Bl d)Ordered By: Priscilla Lang on 04-30-2024 Lymphocytes/100 WBC (Bld) Lymphocytes/100 leukocytes in Blood by Automated count . [facility] MCH Auto (RBC) [Entitic mass ]Ordered By: Priscilla Lang on 04-30-2024 MCH (RBC) [Entitic mass] MCH [Entitic mass] by Automated count 24.7-34.[address] [facility] MCHC Auto (RBC) [Mass/Vol]Or dered By: Priscilla Lang on 04-30-2024 MCHC (RBC) [Mass/Vol] MCHC [Mass/volume] by Automated count 32.0-35.[address] [facility] MCV Auto (RBC) [Entitic vol] Ordered By: Priscilla Lang on 04-30-2024 MCV (RBC) [Entitic vol] MCV [Entitic vol ume] by Automated count 80-[address] [facility] Magnesiumon 04-30-2024 Magnesium [Mass/Vol] 1.7 mg/dL Low 1.9-2.7 [facility] Comment on above: Result Comment: PERF ORMED BY: [place] [address] PATHOLOGIST ASSISTANT MERCHANDISE MANAGER LE MACE M.D. Performed By: #### C MP, MG, PHOS, CBC #### [address] Magnesium [Mass/volume] in S elliot or PlasmaOrdered By: Priscilla Lang on 04-30-2024 Magnesium [Mass/Vol] Magnesium [Mass/vol ume] in Serum or Plasma Low 1.9-2.[address] [facility] Monocytes Auto (Bld) [#/Vol] Ordered By: Priscilla Lang on 04-30-2024 Monocytes (Bld) [#/Vol] Automated blood monocyte count 0.0-0.[address] [facility] Monocytes/100 WBC Auto (Bld) Ordered By: Priscilla Lang on 04-30-2024 Monocytes/100 WBC (Bld) Automated monocyte % . [facility] Neutrophils Auto (Bld) [#/Vo l]Ordered By: Priscilla Lang on 04-30-2024 Neutrophils (Bld) [#/Vol] Neutrophils [#/volume] in Blood by Automated count 1.8-7.[address] [facility] Neutrophils/100 WBC Auto (Bl d)Ordered By: Priscilla Lang on 04-30-2024 Neutrophils/100 WBC (Bld) Automated neutrophil % . [facility] No Panel InformationOrdered By: Priscilla Lang on 04-30-2024 Estimated GFR (CKD-EPI) > 60.0 mL/Min [facility] Creatinine Clearance (Chem 82.[address] [facility] Nucleated erythrocytes [Pres ence] in Blood by Automated countOrdered By: Priscilla Lang on 04-30-2024 Nucleated RBC Auto Ql (Bld) Nucleated erythrocytes [Presence] in Blood by Automated count 0-0.[address] [facility] Phosphate [Mass/volume] in S elliot or PlasmaOrdered By: Priscilla Lang on 04-30-2024 Phosphate [Mass/Vol] Phosphate [Mass/vol ume] in Serum or Plasma 2.5-4.[address] [facility] Phosphoruson 04-30-2024 Phosphate [Mass/Vol] 2.9 mg/dL Normal 2.5-4.5 [facility] Comment on above: Performed By: #### C MP, MG, PHOS, CBC #### [address] Platelet mean volume Auto (B ld) [Entitic vol]Ordered By: Priscilla Lang on 04-30-2024 Platelet mean volume (Bld) [Entitic vol] Platelet mean volume [Entitic volume] in Blood by Automated count 6.3-10.[address] [facility] Platelets Auto (Bld) [#/Vol] Ordered By: Priscilla Lang on 04-30-2024 Platelets (Bld) [#/Vol] Platelets [#/vol ume] in Blood by Automated count Low 150-[address] [facility] Potassium [Moles/volume] in Serum or PlasmaOrdered By: Priscilla Lang on 04-30-2024 Potassium [Moles/Vol] Potassium [Moles/v olume] in Serum or Plasma 3.5-5.[address] [facility] Protein [Mass/volume] in Ser um or PlasmaOrdered By: Priscilla Lang on 04-30-2024 Protein [Mass/Vol] Protein [Mass/volume ] in Serum or Plasma 6.4-8.[address] [facility] RBC Auto (Bld) [#/Vol]Ordere d By: Priscilla Lang on 04-30-2024 RBC (Bld) [#/Vol] Erythrocytes [#/volu me] in Blood by Automated count 3.60-5.[address] [facility] Serum or plasma albumin/glob ulin mass ratioOrdered By: Priscilla Lang on 04-30-2024 Albumin/Globulin [Mass ratio] Serum or plasma albumin/globulin mass ratio [facility] Serum or plasma anion gap de terminationOrdered By: Priscilla Lang on 04-30-2024 Anion gap [Moles/Vol] Serum or plasma an ion gap determination 6.0-15.[address] [facility] Sodium [Moles/volume] in Ser um or PlasmaOrdered By: Priscilla Lang on 04-30-2024 Sodium [Moles/Vol] Sodium [Moles/volume ] in Serum or Plasma 136-[address] [facility] Urea nitrogen [Mass/volume] in Serum or PlasmaOrdered By: Priscilla Lang on 04-30-2024 Urea nitrogen [Mass/Vol] Urea nitrogen [Mass/volume] in Serum or Plasma 7-[address] [facility] WBC Auto (Bld) [#/Vol]Ordere d By: Priscilla Lang on 04-30-2024 WBC (Bld) [#/Vol] Leukocytes [#/volume ] in Blood by Automated count 3.8-11.[address] [facility] Amphetamine Screen Ql (U)Ord ered By: Priscilla Lang on 04-29-2024 Amphetamines Ql (U) Amphetamines screen Negativ e [facility] Barbiturates [Presence] in U rine by Screen methodOrdered By: Priscilla Lang on 04-29-2024 Barbiturates Screen Ql (U) Barbiturates [Presence] in Urine by Screen method Negative [facility] Basic Metabolic Panelon Anion gap [Moles/Vol] 11.3 mmol/L Normal 6.0-15.0 [facility] Comment on above: Order Comment: FASTI NG N Performed By: #### L IPID, BMP #### [facility] [address] [id number] [place] Calcium [Mass/Vol] 8.9 mg/dL Normal 8.6-10.3 [facility] Comment on above: Order Comment: FASTI NG N Performed By: #### L IPID, BMP #### [facility] [address] [place] [address] [place] Chloride [Moles/Vol] 106 mmol/L Normal 98-107 [facility] Comment on above: Order Comment: FASTI NG N Performed By: #### L IPID, BMP #### [facility] [address] [place] [address] [place] CO2 [Moles/Vol] 25.2 mmol/L Normal 21.0-31.0 [facility] Comment on above: Order Comment: FASTI NG N Performed By: #### L IPID, BMP #### [facility] [address] [place] [address] [place] Creatinine [Mass/Vol] 0.85 mg/dL Normal 0.60-1.20 [facility] Comment on above: Order Comment: FASTI NG N Performed By: #### L IPID, BMP #### [facility] [address] [place] [address] [place] Creatinine Clr Calc Pharmacy 77.21 Normal [facility] Comment on above: Order Comment: FASTI NG N Performed By: #### L IPID, BMP #### [facility] [address] [place] [address] [place] GFR/1.73 sq M.predicted MDRD (S/P/Bld) [Vol rate/Area] mL/min/{1.73_m2} Normal [facility] Comment on above: Order Comment: FASTI NG N Performed By: #### L IPID, BMP #### [address] Glucose [Mass/Vol] 206 mg/dL High 70-100 [facility] Comment on above: Order Comment: FASTI NG N Result Comment: [facility] Glucose Reference Range is dependent on time and content of last meal. Glucose of more than 200 mg/dL in a nonstressed, ambulatory subject supports the diagnosis of Diabetes Mellitus. ADA recommended reference range Performed By: #### L IPID, BMP #### [address] Potassium [Moles/Vol] 3.5 mmol/L Normal 3.5-5.1 [facility] Comment on above: Order Comment: FASTI NG N Performed By: #### L IPID, BMP #### [address] Sodium [Moles/Vol] 139 mmol/L Normal 136-145 [facility] Comment on above: Order Comment: FASTI NG N Performed By: #### L IPID, BMP #### [address] Urea nitrogen [Mass/Vol] 9 mg/dL Normal 7-25 [facility] Comment on above: Order Comment: FASTI NG N Performed By: #### L IPID, BMP #### [address] Benzodiazepines Screen Ql (U )Ordered By: Priscilla Lang on 04-29-2024 Benzodiazepines Ql (U) Benzodiazepines [Presence] in Urine by Screen method Negative [facility] Benzoylecgonine [Presence] i n Urine by Screen methodOrdered By: Priscilla Lang on 04-29-2024 Benzoylecgonine Screen Ql (U) Benzoylecgonine [Presence] in Urine by Screen method Negative [facility] Cannabinoids [Presence] in U rine by Screen methodOrdered By: Priscilla Lang on 04-29-2024 Cannabinoids Screen Ql (U) Cannabinoids [Presence] in Urine by Screen method Negative [facility] Comment on above: These are unconfirme d results and should not be used for legal purposes. Drug Cut-Off Concentration: AMPH 1000 ng/mL KENDRICK 200 ng/mL HEATHER 200 ng/mL COCM 300 ng/mL OP 300 ng/mL PCP 25 ng/mL THC 20 ng/mL Cholesterol [Mass/volume] in Serum or PlasmaOrdered By: Jori Hearn on 04-29-2024 Cholesterol [Mass/Vol] Cholesterol [Mass/volume] in Serum or Plasma Low 140-[address] [facility] Comment on above: Chol less than 200 m g/dl low riskChol 201-239 mg/dl borderline riskChol 240 mg/dl and greater high risk Cholesterol in HDL [Mass/vol ume] in Serum or PlasmaOrdered By: Jori Hearn on 04-29-2024 Cholesterol in HDL [Mass/Vol] Serum or plasma high density lipoprotein (HDL) cholesterol measurement 23-[address] [facility] Comment on above: HDL CHOL ATP-III CLA SSIFICATION Cardiovascular RiskHDL > or equal to 60 mg/dL LOWHDL < 40 mg/dL HIGH Cholesterol in LDL Calc [Mas s/Vol]Ordered By: Jori Hearn on 04-29-2024 Cholesterol in LDL [Mass/Vol] Cholesterol in LDL [Mass/volume] in Serum or Plasma by calculation 0-[address] [facility] Comment on above: LDL ATP III CLASSIFI CATIONLDL less than 100 mg/dL OptimalLDL 100-129 mg/dL Near or above optimalLDL 130-159 mg/dL Borderline highLDL 160-189 mg/dL HighLDL greater than 189 mg/dL Very high Cholesterol in VLDL Calc [Ma ss/Vol]Ordered By: Jori Hearn on 04-29-2024 Cholesterol in VLDL [Mass/Vol] Cholesterol in VLDL [Mass/volume] in Serum or Plasma by calculation [facility] Drug Screen,Urineon 04-29-19 25 Amphetamine Screen,Urine Negative Normal Negative [facility] Comment on above: Performed By: #### T SH3 wRFLX, LIPID #### [address] Barbiturate Screen,Urine Negative Normal Negative [facility] Comment on above: Performed By: #### T SH3 wRFLX, LIPID #### [facility] [address] [place] [address] [place] Benzodiazepines Screen,Urine Negative Normal Negative [facility] Comment on above: Performed By: #### T SH3 wRFLX, LIPID #### [address] Cannabinoid Screen,Urine Negative Normal Negative [facility] Comment on above: Result Comment: Thes e are unconfirmed results and should not be used for legal purposes. Drug Cut-Off Concentration: AMPH 1000 ng/mL KENDRICK 200 ng/mL HEATHER 200 ng/mL COCM 300 ng/mL OP 300 ng/mL PCP 25 ng/mL THC 20 ng/mL PERFORMED BY: [place] [address] PATHOLOGIST ASSISTANT MERCHANDISE MANAGER LE MACE M.D. Performed By: #### T SH3 wRFLX, LIPID #### [address] Cocaine Screen,Urine Negative Normal Negative [facility] Comment on above: Performed By: #### T SH3 wRFLX, LIPID #### [place] [address] [place] Opiate Screen,Urine Negative Normal Negative [facility] Comment on above: Performed By: #### T SH3 wRFLX, LIPID #### [place] [address] [place] Phencyclidine Screen,Urine Negative Normal Negative [facility] Comment on above: Performed By: #### T SH3 wRFLX, LIPID #### [address] Glucose Poct Glucometerson 0 04-29-2024 Glucose [Mass/Vol] 165 mg/dL Normal [facility] Comment on above: Result Comment: [place] [facility] Glucose Reference Range is dependent on time and content of last meal. Glucose of more than 200 mg/dL in a nonstressed, ambulatory subject supports the diagnosis of Diabetes Mellitus. PERFORMED BY: [place] [address] PATHOLOGIST ASSISTANT MERCHANDISE MANAGER LE MACE M.D. Performed By: #### T SH3 wRFLX, LIPID #### [address] Commemt1 Glu2: Cleaned Meter Normal [facility] Comment on above: Result Comment: PERF ORMED BY: [place] [address] PATHOLOGIST ASSISTANT MERCHANDISE MANAGER LE MACE M.D. Performed By: #### C MP, MG, PHOS, CBC #### [address] Glucose [Mass/Vol] 188 mg/dL Normal [facility] Comment on above: Result Comment: [place] [facility] Glucose Reference Range is dependent on time and content of last meal. Glucose of more than 200 mg/dL in a nonstressed, ambulatory subject supports the diagnosis of Diabetes Mellitus. Performed By: #### C MP, MG, PHOS, CBC #### [address] Commemt1 Glu2: Cleaned Meter Normal [facility] Comment on above: Result Comment: PERF ORMED BY: [place] [address] PATHOLOGIST ASSISTANT MERCHANDISE MANAGER LE MACE M.D. Performed By: #### T SH3 wRFLX, LIPID #### [place] [address] [place] Glucose [Mass/Vol] 192 mg/dL Normal [facility] Comment on above: Result Comment: [place] [facility] Glucose Reference Range is dependent on time and content of last meal. Glucose of more than 200 mg/dL in a nonstressed, ambulatory subject supports the diagnosis of Diabetes Mellitus. Performed By: #### T SH3 wRFLX, LIPID #### [facility] [address] [place] [address] [facility] Glucose [Mass/Vol] 210 mg/dL Normal [facility] Comment on above: Result Comment: [facility] Glucose Reference Range is dependent on time and content of last meal. Glucose of more than 200 mg/dL in a nonstressed, ambulatory subject supports the diagnosis of Diabetes Mellitus. PERFORMED BY: [place] [address] PATHOLOGIST ASSISTANT MERCHANDISE MANAGER LE MACE M.D. Performed By: #### T SH3 wRFLX, LIPID #### [facility] [address] [id number] [facility] Lipid Panelon 04-29-2024 Cholesterol [Mass/Vol] 106 mg/dL Low 140-200 [facility] Comment on above: Order Comment: FASTI NG N Result Comment: Chol less than 200 mg/dl low risk Chol 201-239 mg/dl borderline risk Chol 240 mg/dl and greater high risk Performed By: #### L IPID, BMP #### [place] [id number] [facility] Cholesterol in HDL [Mass/Vol] 31 mg/dL Normal 23-92 [facility] Comment on above: Order Comment: FASTI NG N Result Comment: HDL CHOL ATP-III CLASSIFICATION Cardiovascular Risk HDL > or equal to 60 mg/dL LOW HDL < 40 mg/dL HIGH Performed By: #### L IPID, BMP #### [place] [id number] [facility] Cholesterol.total/Monica sterol in HDL [Mass ratio] 3.4 {ratio} Normal <5.0 [facility] Comment on above: Order Comment: FASTI NG N Result Comment: PERF ORMED BY: [place] [address] PATHOLOGIST ASSISTANT MERCHANDISE MANAGER LE MACE M.D. Performed By: #### L IPID, BMP #### [facility] [address] [place] [address] [facility] LDL Cholesterol,Calculated 45 mg/dL Normal 0-100 [facility] Comment on above: Order Comment: FASTI NG N Result Comment: LDL ATP III CLASSIFICATION LDL less than 100 mg/dL Optimal LDL 100-129 mg/dL Near or above optimal LDL 130-159 mg/dL Borderline high LDL 160-189 mg/dL High LDL greater than 189 mg/dL Very high Performed By: #### L IPID, BMP #### [facility] [address] [id number] [place] Triglyceride w/Reflex 151 mg/dL High 0-149 [facility] Comment on above: Order Comment: FASTI NG N Result Comment: TRIG ATP III CLASSIFICATION TRIG less than 150 mg/dL Normal TRIG 150-199 mg/dL Borderline high TRIG 200-500 mg/dL High TRIG greater than 500 mg/dL Very high Standard traceable to the Center for Disease Conrtrol and Prevention (CDC) test method. Performed By: #### L IPID, BMP #### [facility] [address] VLDL CHOLESTEROL 30 mg/dL Normal [facility] Comment on above: Order Comment: FASTI NG N Performed By: #### L IPID, BMP #### [facility] [address] [id number] [facility] No Panel InformationOrdered By: Priscilla Lang on 04-29-2024 Bedside Glucose Comment Glu2: cleaned meter [facility] Opiates [Presence] in Urine by Screen methodOrdered By: Priscilla Lang on 04-29-2024 Opiates Screen Ql (U) Opiates [Presence] in Urine by Screen method Negative [facility] Phencyclidine Screen Ql (U)O rdered By: Priscilla Lang on 04-29-2024 Phencyclidine Ql (U) Phencyclidine [Pres ence] in Urine by Screen method Negative [facility] Serum or plasma total choles terol/high density lipoprotein (HDL) cholesterol mass ratOrdered By: Jori Hearn on 04-29-2024 Cholesterol.total/Monica sterol in HDL [Mass ratio] Serum or plasma total cholesterol/high density lipoprotein (HDL) cholesterol mass rat <5.[address] [facility] Triglyceride [Mass/volume] i n Serum or PlasmaOrdered By: Jori Hearn on 04-29-2024 Triglyceride [Mass/Vol] Triglyceride [Mass/volume] in Serum or Plasma High 0-[address] [facility] Comment on above: TRIG ATP III CLASSIF ICATIONTRIG less than 150 mg/dL NormalTRIG 150-199 mg/dL Borderline highTRIG 200-500 mg/dL High TRIG greater than 500 mg/dL Very highStandard traceable to the Center for Disease Conrtrol and Prevention (CDC) test method. Urine Cultureon 04-29-2024 Bacteria identified Cx Nom (U) 15,000 colonies/ml mixed bacterial skin contaminants 2 Days PERFORMED BY: [place] [address] PATHOLOGIST ASSISTANT MERCHANDISE MANAGER LE MACE M.D. Normal [facility] Comment on above: Performed By: #### T SH3 wRFLX, LIPID #### [address] Urine cultureOrdered By: Bhargav Lang on 04-29-2024 Bacteria identified Cx Nom (U) Urine culture [facility] Bacteria identified Cx Nom (U) Urine culture [facility] Alanine aminotransferase [En zymatic activity/volume] in Serum or PlasmaOrdered By: Wesley Villafuerte on 04-28-2024 ALT [Catalytic activity/Vol] Alanine aminotransferase [Enzymatic activity/volume] in Serum or Plasma 7-[address] [facility] Albumin [Mass/volume] in Ser um or Plasma by Bromocresol green (BCG) dye binding methoOrdered By: Wesley Villafuerte on 04-28-2024 Albumin BCG dye [Mass/Vol] Albumin [Mass/volume] in Serum or Plasma by Bromocresol green (BCG) dye binding metho 3.5-5.[address] [facility] Alkaline phosphatase [Enzyma tic activity/volume] in Serum or PlasmaOrdered By: Wesley Villafuerte on 04-28-2024 ALP [Catalytic activity/Vol] Alkaline phosphatase [Enzymatic activity/volume] in Serum or Plasma 34-[address] [facility] Anisocytosis LM Ql (Bld)Orde red By: Wesley Villafuerte on 04-28-2024 Anisocytosis Ql (Bld) Anisocytosis [Pres ence] in Blood by Light microscopy [facility] Appearance of UrineOrdered B y: Wesley Villafuerte on 04-28-2024 Appearance (U) Urine appearance Clear [facility] Aspartate aminotransferase [ Enzymatic activity/volume] in Serum or PlasmaOrdered By: Wesley Villafuerte on 04-28-2024 AST [Catalytic activity/Vol] Aspartate aminotransferase [Enzymatic activity/volume] in Serum or Plasma 13-[address] [facility] B-Type Natriuretic Peptideon 04-28-2024 Natriuretic peptide B (Bld) [Mass/Vol] 25.0 pg/mL Normal 5-100 [facility] Comment on above: Result Comment: PERF ORMED BY: [place] [address] PATHOLOGIST ASSISTANT MERCHANDISE MANAGER LE MACE M.D. Performed By: #### T SH3 wRFLX, LIPID #### [address] Bacteria [Presence] in Urine by AutomatedOrdered By: Wesley Villafuerte on 04-28-2024 Bacteria Auto Ql (U) Bacteria [Presence] in Urine by Automated None Seen [facility] Basophils Auto (Bld) [#/Vol] Ordered By: Wesley Villafuerte on 04-28-2024 Basophils (Bld) [#/Vol] Automated basophil count 0.0-0.[address] [facility] Basophils/100 WBC Auto (Bld) Ordered By: Wesley Villafuerte on 04-28-2024 Basophils/100 WBC (Bld) Automated basophil % . [facility] Bilirubin Test strip Ql (U)O rdered By: Wesley Villafuerte on 04-28-2024 Bilirubin Ql (U) Bilirubin.total [Presence] in Urine by Test strip Negative [facility] Bilirubin.total [Mass/volume ] in Serum or PlasmaOrdered By: Wesley Villafuerte on 04-28-2024 Bilirubin [Mass/Vol] Bilirubin.total [Mass/volume] in Serum or Plasma 0.3-1.[address] [facility] BioFire Not Detectedon 04-28 BioFire Not Detected Not detected Normal Not Detecte [facility] Comment on above: Result Comment: This is a duplicate RP2.1 COVID (PCR) result to be used for statistical tracking purpose only. PERFORMED BY: [place] [address] PATHOLOGIST ASSISTANT MERCHANDISE MANAGER LE MACE M.D. Performed By: #### L IPID, BMP #### [address] COVID-19 Detected/Not Detect edOrdered By: Wesley Villafuerte on 04-28-2024 SARS-CoV-2 (COVID-19) RNA TEJINDER+non-probe Ql (Nph) Not detected Not Detecte [facility] Comment on above: This is a duplicate RP2.1 COVID (PCR) result to be used for statistical tracking purpose only. CT angio headon 04-28-2024 CT angio head [facility] Main [place] [address] [place] [address] CT Scan Report Signed Patient: Taye Gay MR#: [id number] 19 : 1955 Acct:[id number] Age/Sex: 68 / F ADM Date: 04/28/24 Loc: ER Room: Type: [facility] ER Attending Dr: Copies to: Wesley Villafuerte PA-C Ordering Provider: Wesley Villafuerte PA-C Date of Service: 04/28/24 CT/CT angio head: weakness ([id number]) CT/CT angio neck: weakness ([id number]) CT/CT head/brain wo con: weakness CT head/brain [...] Oz Bowling M.D.04/28/2024 9:44 PM Dictation Location: [place] [address] Transcribed By: AMY 04/28/242143 Dictated By: Oz Bowling II, MD 04/28/242129 Signed By: 04/28/242143 Normal [facility] Calcium [Mass/volume] in Ser um or PlasmaOrdered By: Wesley Villafuerte on 04-28-2024 Calcium [Mass/Vol] Calcium [Mass/volume ] in Serum or Plasma 8.6-10.[address] [facility] Carbon dioxide, total [Moles /volume] in Serum or PlasmaOrdered By: Wesley Villafuerte on 04-28-2024 CO2 [Moles/Vol] Carbon dioxide, tota l [Moles/volume] in Serum or Plasma 21.0-31.[address] [facility] Chloride [Moles/volume] in S elliot or PlasmaOrdered By: Wesley Villafuerte on 04-28-2024 Chloride [Moles/Vol] Chloride [Moles/vol ume] in Serum or Plasma 98-[address] [facility] Color Auto (U)Ordered By: Colin Villafuerte on 04-28-2024 Color (U) Color of Urine by Auto Yellow [facility] Comprehensive Metabolic Pane juan 04-28-2024 Albumin [Mass/Vol] 3.7 g/dL Normal 3.5-5.7 [facility] Comment on above: Performed By: #### T SH3 wRFLX, LIPID #### [facility] [address] Albumin/Globulin [Mass ratio] 1.2 {ratio} Normal [facility] Comment on above: Performed By: #### T SH3 wRFLX, LIPID #### [facility] [address] ALP [Catalytic activity/Vol] 86 U/L Normal 34-104 [facility] Comment on above: Performed By: #### T SH3 wRFLX, LIPID #### [facility] [address] ALT [Catalytic activity/Vol] 20 U/L Normal 7-52 [facility] Comment on above: Performed By: #### T SH3 wRFLX, LIPID #### [facility] [address] [place] [address] [place] Anion gap [Moles/Vol] 12.7 mmol/L Normal 6.0-15.0 [facility] Comment on above: Performed By: #### T SH3 wRFLX, LIPID #### [facility] [address] [place] [address] [place] AST [Catalytic activity/Vol] 25 U/L Normal 13-39 [facility] Comment on above: Performed By: #### T SH3 wRFLX, LIPID #### [facility] [address] [place] [address] [place] Bilirubin [Mass/Vol] 0.3 mg/dL Normal 0.3-1.0 [facility] Comment on above: Performed By: #### T SH3 wRFLX, LIPID #### [facility] [address] [place] [address] [place] Calcium [Mass/Vol] 9.7 mg/dL Normal 8.6-10.3 [facility] Comment on above: Performed By: #### T SH3 wRFLX, LIPID #### [facility] [address] [place] [address] [place] Chloride [Moles/Vol] 104 mmol/L Normal 98-107 [facility] Comment on above: Performed By: #### T SH3 wRFLX, LIPID #### [facility] [address] CO2 [Moles/Vol] 24.2 mmol/L Normal 21.0-31.0 [facility] Comment on above: Performed By: #### T SH3 wRFLX, LIPID #### [facility] [address] [place] [address] [place] Creatinine [Mass/Vol] 0.85 mg/dL Normal 0.60-1.20 [facility] Comment on above: Performed By: #### T SH3 wRFLX, LIPID #### [place] [address] [place] Creatinine Clr Calc Pharmacy 77.21 Normal [facility] Comment on above: Performed By: #### T SH3 wRFLX, LIPID #### [place] [address] [place] GFR/1.73 sq M.predicted MDRD (S/P/Bld) [Vol rate/Area] mL/min/{1.73_m2} Normal [facility] Comment on above: Performed By: #### T SH3 wRFLX, LIPID #### [facility] [address] [place] [address] [place] Globulin (S) [Mass/Vol] 3.1 g/dL Normal T [facility] Comment on above: Performed By: #### T SH3 wRFLX, LIPID #### [facility] [address] [place] [address] [place] Glucose [Mass/Vol] 231 mg/dL High 70-100 [facility] Comment on above: Result Comment: [place] Glucose Reference Range is dependent on time and content of last meal. Glucose of more than 200 mg/dL in a nonstressed, ambulatory subject supports the diagnosis of Diabetes Mellitus. ADA recommended reference range Performed By: #### T SH3 wRFLX, LIPID #### [place] [address] [place] Potassium [Moles/Vol] 3.9 mmol/L Normal 3.5-5.1 [facility] Comment on above: Result Comment: Hemo lysis is present at a level that could interfere with the result. Contact lab if redraw is required Performed By: #### T SH3 wRFLX, LIPID #### [address] Protein [Mass/Vol] 6.8 g/dL Normal 6.4-8.9 [facility] Comment on above: Performed By: #### T SH3 wRFLX, LIPID #### [address] Sodium [Moles/Vol] 137 mmol/L Normal 136-145 [facility] Comment on above: Performed By: #### T SH3 wRFLX, LIPID #### [address] Urea nitrogen [Mass/Vol] 11 mg/dL Normal 7-25 [facility] Comment on above: Performed By: #### T SH3 wRFLX, LIPID #### [place] [address] [place] Creatinine [Mass/volume] in Serum or PlasmaOrdered By: Wesley Villafuerte on 04-28-2024 Creatinine [Mass/Vol] Creatinine [Mass/v olume] in Serum or Plasma 0.60-1.[address] [facility] Dipstick and Microscopicon 1 Appearance (U) Clear Normal Clear [facility] Comment on above: Order Comment: Name Collection Type:: Clean-Voided Midstream Performed By: #### A DDONUAPLUS #### [address] [place] [address] [place] Bacteria,Urine Rare Normal None Seen [facility] Comment on above: Order Comment: Name Collection Type:: Clean-Voided Midstream Performed By: #### A DDONUAPLUS #### [place] [id number] [place] Bilirubin,Urine Negative Normal Negative [facility] Comment on above: Order Comment: Name Collection Type:: Clean-Voided Midstream Performed By: #### A DDONUAPLUS #### [place] [address] [place] Budding Yeast,Urine Rare High None Seen [facility] Comment on above: Order Comment: Name Collection Type:: Clean-Voided Midstream Result Comment: PERF ORMED BY: [place] [address] PATHOLOGIST ASSISTANT MERCHANDISE MANAGER LE MACE M.D. Performed By: #### A DDONUAPLUS #### [place] [address] [place] Color (U) Light-Yellow Normal Yellow [facility] Comment on above: Order Comment: Name Collection Type:: Clean-Voided Midstream Performed By: #### A DDONUAPLUS #### [place] [id number] [place] Glucose Ql (U) >= High Normal [facility] Comment on above: Order Comment: Name Collection Type:: Clean-Voided Midstream Performed By: #### A DDONUAPLUS #### [place] [address] [place] Hyaline Casts,Urine 0 [LPF] Normal 0-8 [facility] Comment on above: Order Comment: Name Collection Type:: Clean-Voided Midstream Performed By: #### A DDONUAPLUS #### [place] [address] [place] Ketones Ql (U) Negative Normal Negative [facility] Comment on above: Order Comment: Name Collection Type:: Clean-Voided Midstream Performed By: #### A DDONUAPLUS #### [place] [address] [place] Leukocyte esterase Test strip Ql (U) Negative Normal Negative [facility] Comment on above: Order Comment: Name Collection Type:: Clean-Voided Midstream Performed By: #### A DDONUAPLUS #### [place] [address] [place] Nitrite,Urine Negative Normal Negative [facility] Comment on above: Order Comment: Name Collection Type:: Clean-Voided Midstream Performed By: #### A DDONUAPLUS #### [place] [address] [place] Occult Blood,Urine 2+ High Negative [facility] Comment on above: Order Comment: Name Collection Type:: Clean-Voided Midstream Result Comment: PERF ORMED BY: [place] [address] PATHOLOGIST ASSISTANT MERCHANDISE MANAGER LE MACE M.D. Performed By: #### A DDONUAPLUS #### [place] [address] [place] pH (U) 5.5 [pH] Normal 5.0-9.0 [facility] Comment on above: Order Comment: Name Collection Type:: Clean-Voided Midstream Performed By: #### A DDONUAPLUS #### [place] [address] [place] Protein,Urine Negative Normal Negative [facility] Comment on above: Order Comment: Name Collection Type:: Clean-Voided Midstream Performed By: #### A DDONUAPLUS #### [place] [address] [place] RBC,Urine 10 [HPF] High 0-4 [facility] Comment on above: Order Comment: Name Collection Type:: Clean-Voided Midstream Performed By: #### A DDONUAPLUS #### [place] [address] [place] Specificy [place],Urine 1.038 High 1.00 1-1.03 0 [facility] Comment on above: Order Comment: Name Collection Type:: Clean-Voided Midstream Performed By: #### A DDONUAPLUS #### [address] Squamous Epithelial Cell,Urine 3 [HPF] High 0-2 [facility] Comment on above: Order Comment: Name Collection Type:: Clean-Voided Midstream Performed By: #### A DDONUAPLUS #### [address] Urobilinogen,Urine Normal Normal Normal [facility] Comment on above: Order Comment: Name Collection Type:: Clean-Voided Midstream Performed By: #### A DDONUAPLUS #### [address] WBC,Urine 5 [HPF] High 0-4 [facility] Comment on above: Order Comment: Name Collection Type:: Clean-Voided Midstream Performed By: #### A DDONUAPLUS #### [address] ECG 12 lead ECGon 04-28-2024 ECG 12 lead ECG [facility] Main [place] [address] [place] [address] Electrocardiograph Report Signed Patient: Taye Gay MR#: [id number] 19 : 1955 Acct:[id number] Age/Sex: 68 / F ADM Date: 04/28/24 Loc: Room: [address] [place] [address] Type: ADM IN Attending Dr: Jori Hearn [...] Jori Batista MD 05/23 0144 Normal [facility] Eosinophils Auto (Bld) [#/Vo l]Ordered By: Wesley Villafuerte on 04-28-2024 Eosinophils (Bld) [#/Vol] Automated eosinophil count 0.0-0.[address] [facility] Eosinophils/100 WBC Auto (Bl d)Ordered By: Wesley Villafuerte on 04-28-2024 Eosinophils/100 WBC (Bld) Automated eosinophil % . [facility] Epithelial cells.squamous [# /area] in Urine sediment by Automated countOrdered By: Wesley Villafuerte on 04-28-2024 Epithelial cells.squamous Auto (Urine sed) [#/Area] Epithelial cells.squamous [#/area] in Urine sediment by Automated count High 0-[address] [facility] Erythrocyte distribution wid th Auto (RBC) [Ratio]Ordered By: Wesley Villafuerte on 04-28-2024 Erythrocyte distribution width (RBC) [Ratio] Erythrocyte distribution width [Ratio] by Automated count High 11.9-15.[address] [facility] Erythrocyte morphology findi ng [Identifier] in BloodOrdered By: Wesley Villafuerte on 04-28-2024 RBC morphology finding Nom (Bld) RBC morphology [facility] Erythrocytes [#/area] in Uri ne sediment by Automated countOrdered By: Wesley Villafuerte on 04-28-2024 RBC Auto (Urine sed) [#/Area] Erythrocytes [#/area] in Urine sediment by Automated count High 0-[address] [facility] Globulin Calc (S) [Mass/Vol] Ordered By: Wesley Villafuerte on 04-28-2024 Globulin (S) [Mass/Vol] Serum globulin measurement by calculation (mass/volume) [facility] Glucose [Mass/volume] in Ser um or PlasmaOrdered By: Wesley Villafuerte on 04-28-2024 Glucose [Mass/Vol] Glucose [Mass/volume ] in Serum or Plasma High 70-[address] [facility] Comment on above: ADA recommended [...] in Urine by Test strip High Normal [facility] HbA1c HPLC (Bld) [Mass fract ion]on 04-28-2024 HbA1c (Bld) [Mass fraction] Hemoglobin A1c/Hemoglobin.total in Blood by HPLC [facility] Hematocrit Auto (Bld) [Volum e fraction]Ordered By: Wesley Villafuerte on 04-28-2024 Hematocrit (Bld) [Volume fraction] Hematocrit [Volume Fraction] of Blood by Automated count High 34.0-46.[address] [facility] Hemoglobin Test strip Ql (U) Ordered By: Wesley Villafuerte on 04-28-2024 Hemoglobin Ql (U) Hemoglobin [Presence ] in Urine by Test strip High Negative [facility] Hemoglobin [Mass/volume] in BloodOrdered By: Wesley Villafuerte on 04-28-2024 Hemoglobin (Bld) [Mass/Vol] Hemoglobin [Mass/volume] in Blood High 11.8-15.[address] [facility] Hyaline casts [#/area] in Ur ine sediment by Automated countOrdered By: Wesley Villafuerte on 04-28-2024 Hyaline casts Auto (Urine sed) [#/Area] Hyaline casts [#/area] in Urine sediment by Automated count 0-[address] [facility] INR in Platelet poor plasma by Coagulation assayOrdered By: Wesley Villafuerte on 04-28-2024 INR Coag (PPP) [Relative time] INR in Platelet poor plasma by Coagulation assay [facility] Comment on above: INR Therapeutic [...] i n Urine by Test strip Negative [facility] Leukocyte esterase [Presence ] in Urine by Test stripOrdered By: Wesley Villafuerte on 04-28-2024 Leukocyte esterase Test strip Ql (U) Leukocyte esterase [Presence] in Urine by Test strip Negative [facility] Leukocytes [#/area] in Urine sediment by Automated countOrdered By: Wesley Villafuerte on 04-28-2024 WBC Auto (Urine sed) [#/Area] Leukocytes [#/area] in Urine sediment by Automated count High 0-[address] [facility] Leukocytes [#/volume] correc deepika for nucleated erythrocytes in Blood by Automated counOrdered By: Wesley Villafuerte on 04-28-2024 WBC corrected for nucl RBC Auto (Bld) [#/Vol] Leukocytes [#/volume] corrected for nucleated erythrocytes in Blood by Automated coun 3.8-11.[address] [facility] Lymphocytes Auto (Bld) [#/Vo l]Ordered By: Wesley Villafuerte on 04-28-2024 Lymphocytes (Bld) [#/Vol] Lymphocytes [#/volume] in Blood by Automated count 1.00-4.[address] [facility] Lymphocytes/100 WBC Auto (Bl d)Ordered By: Wesley Villafuerte on 04-28-2024 Lymphocytes/100 WBC (Bld) Lymphocytes/100 leukocytes in Blood by Automated count . [facility] MCH Auto (RBC) [Entitic mass ]Ordered By: Wesley Villafuerte on 04-28-2024 MCH (RBC) [Entitic mass] MCH [Entitic mass] by Automated count 24.7-34.[address] [facility] MCHC Auto (RBC) [Mass/Vol]Or dered By: Wesley Villafuerte on 04-28-2024 MCHC (RBC) [Mass/Vol] MCHC [Mass/volume] by Automated count 32.0-35.[address] [facility] MCV Auto (RBC) [Entitic vol] Ordered By: Wesley Villafuerte on 04-28-2024 MCV (RBC) [Entitic vol] MCV [Entitic vol ume] by Automated count 80-[address] [facility] Magnesiumon 04-28-2024 Magnesium [Mass/Vol] 1.7 mg/dL Low 1.9-2.7 [facility] Comment on above: Result Comment: PERF ORMED BY: [facility] [address] [place] [address] PATHOLOGIST ASSISTANT MERCHANDISE MANAGER LE MACE M.D. Performed By: #### T SH3 wRFLX, LIPID #### [facility] [address] Magnesium [Mass/volume] in S elliot or PlasmaOrdered By: Wesley Villafuerte on 04-28-2024 Magnesium [Mass/Vol] Magnesium [Mass/vol ume] in Serum or Plasma Low 1.9-2.[address] [facility] Monocyte distribution width [Entitic volume] in Blood by AutomatedOrdered By: Wesley Villafuerte on 04-28-2024 Monocyte distribution width Auto (Bld) [Entitic vol] Monocyte distribution width [Entitic volume] in Blood by Automated High 0.00-20.[address] [facility] Comment on above: For adults in ED, MD W > 20.0 may be associated with a higher risk of sepsis during the first 12 hrs of hospital admission Monocytes Auto (Bld) [#/Vol] Ordered By: Wesley Villafuerte on 04-28-2024 Monocytes (Bld) [#/Vol] Automated blood monocyte count 0.0-0.[address] [facility] Monocytes/100 WBC Auto (Bld) Ordered By: Wesley Villafuerte on 04-28-2024 Monocytes/100 WBC (Bld) Automated monocyte % . [facility] Natriuretic peptide B [Mass/ Vol]Ordered By: Wesley Villafuerte on 04-28-2024 Natriuretic peptide B (Bld) [Mass/Vol] BNP ser/plas 5-[address] [facility] Neutrophils Auto (Bld) [#/Vo l]Ordered By: Wesley Villafuerte on 04-28-2024 Neutrophils (Bld) [#/Vol] Neutrophils [#/volume] in Blood by Automated count 1.8-7.[address] [facility] Neutrophils/100 WBC Auto (Bl d)Ordered By: Wesley Villafuerte on 04-28-2024 Neutrophils/100 WBC (Bld) Automated neutrophil % . [facility] Nitrite Test strip Ql (U)Ord ered By: Wesley Villafuerte on 04-28-2024 Nitrite Ql (U) Nitrite [Presence] i n Urine by Test strip Negative [facility] No Panel InformationOrdered By: Wesley Villafuerte on 04-28-2024 Estimated GFR (CKD-EPI) > 60.0 mL/Min [facility] Pharmacy Creatinine Clearance (Chem 77.[address] [facility] No Panel Informationon 04-28 Bedside Glucose [address] [facility] Nucleated erythrocytes [Pres ence] in Blood by Automated countOrdered By: Wesley Villafuerte on 04-28-2024 Nucleated RBC Auto Ql (Bld) Nucleated erythrocytes [Presence] in Blood by Automated count 0-0.[address] [facility] Partial Thromboplastin Timeo n 04-28-2024 aPTT Coag (Bld) [Time] 30.0 s Normal 25.1-36.5 [facility] Comment on above: Result Comment: A he matocrit value greater than 55% may lead to inaccurate results in coagulation testing. Patients having hematocrit values >55% require a special collection tube for coagulation studies. Please contact the laboratory at [phone] for redraw instructions. PERFORMED BY: [place] [address] PATHOLOGIST ASSISTANT MERCHANDISE MANAGER LE MACE M.D. Performed By: #### C MP, MG, PHOS, CBC #### [address] Platelet adequacy [Presence] in Blood by Light microscopyOrdered By: Wesley Villafuerte on 04-28-2024 Platelets LM Ql (Bld) Platelet adequacy [Presence] in Blood by Light microscopy Normal [facility] Platelet mean volume Auto (B ld) [Entitic vol]Ordered By: Wesley Villafuerte on 04-28-2024 Platelet mean volume (Bld) [Entitic vol] Platelet mean volume [Entitic volume] in Blood by Automated count 6.3-10.[address] [facility] Platelet morphology finding [Identifier] in BloodOrdered By: Wesley Villafuerte on 04-28-2024 Platelet morphology finding Nom (Bld) Platelet morphology finding [Identifier] in Blood Normal [facility] Platelets Auto (Bld) [#/Vol] Ordered By: Wesley Villafuerte on 04-28-2024 Platelets (Bld) [#/Vol] Platelets [#/vol ume] in Blood by Automated count Low 150-[address] [facility] Polychromasia [Presence] in Blood by Light microscopyOrdered By: Wesley Villafuerte on 04-28-2024 Polychromasia LM Ql (Bld) Polychromasia [Presence] in Blood by Light microscopy [facility] Potassium [Moles/volume] in Serum or PlasmaOrdered By: Wesley Villafuerte on 04-28-2024 Potassium [Moles/Vol] Potassium [Moles/v olume] in Serum or Plasma 3.5-5.[address] [facility] Comment on above: Hemolysis is present at a level that could interfere with the result.Contact lab if redraw is required Protein Test strip (U) [Mass /Vol]Ordered By: Wesley Villafuerte on 04-28-2024 Protein (U) [Mass/Vol] Protein [Mass/vol ume] in Urine by Test strip Negative [facility] Protein [Mass/volume] in Ser um or PlasmaOrdered By: Wesley Villafuerte on 04-28-2024 Protein [Mass/Vol] Protein [Mass/volume ] in Serum or Plasma 6.4-8.[address] [facility] Prothrombin Time INRon 04-28 INR Coag (PPP) [Relative time] 1.3 {INR} Normal [facility] Comment on above: [...] By: #### T SH3 wRFLX, LIPID #### [facility] [address] [place] [id number] [facility] PT Coag (PPP) [Time] 15.1 s High 9.0-12.9 [facility] Comment on above: Result Comment: A he matocrit value greater than 55% may lead to inaccurate results in coagulation testing. Patients having hematocrit values >55% require a special collection tube for coagulation studies. Please contact the laboratory at [phone] for redraw instructions. Performed By: #### T SH3 wRFLX, LIPID #### [facility] [address] [place] [id number] [facility] Prothrombin time (PT)Ordered By: Wesley Villafuerte on 04-28-2024 PT Coag (PPP) [Time] Prothrombin time (PT) High 9.0- 12.[address] [facility] Comment on above: A hematocrit value g reater than 55% may lead to inaccurate results in coagulation testing. Patients having hematocrit values >55% require a special collection tube for coagulation studies. Please contact the laboratory at [phone] for redraw instructions. RBC Auto (Bld) [#/Vol]Ordere d By: Wesley Villafuerte on 04-28-2024 RBC (Bld) [#/Vol] Erythrocytes [#/volu me] in Blood by Automated count High 3.60-5.[address] [facility] Respiratory (Upper) Panel, P CRon [...] A H3 Blank Space ------ PERFORMED BY: [place] [address] PATHOLOGIST ASSISTANT MERCHANDISE MANAGER LE MACE M.D. Normal [facility] Comment on above: Performed By: #### L IPID, BMP #### [address] Respiratory pathogens DNA an d RNA panel - Nasopharynx by TEJINDER with non-probe detectionOrdered By: Wesley Villafuerte on 04-28-2024 Respiratory pathogens DNA and RNA panel TEJINDER+non-probe (Nph) Respiratory pathogens DNA and RNA panel - Nasopharynx by TEJINDER with non-probe detection [facility] Respiratory pathogens DNA and RNA panel TEJINDER+non-probe (Nph) Respiratory pathogens DNA and RNA panel - Nasopharynx by TEJINDER with non-probe detection [facility] Scan and CBCon 04-28-2024 Anisocytosis Ql (Bld) Slight Normal [facility] Comment on above: Performed By: #### C MP, MG, PHOS, CBC #### [address] Basophils (Bld) [#/Vol] 0.1 10*3/uL Normal 0.0-0.2 [facility] Comment on above: Performed By: #### C MP, MG, PHOS, CBC #### [address] Basophils/100 WBC (Bld) 1.1 % Normal . [facility] Comment on above: Performed By: #### C MP, MG, PHOS, CBC #### [place] [address] [place] Eosinophils (Bld) [#/Vol] 0.3 10*3/uL Normal 0.0-0.45 [facility] Comment on above: Performed By: #### C MP, MG, PHOS, CBC #### [address] Eosinophils/100 WBC (Bld) 2.7 % Normal . [facility] Comment on above: Performed By: #### C MP, MG, PHOS, CBC #### [address] Erythrocyte distribution width (RBC) [Ratio] 15.4 % High 11.9-15.3 [facility] Comment on above: Performed By: #### C MP, MG, PHOS, CBC #### [address] Hematocrit (Bld) [Volume fraction] 48.1 % High 34.0-46.4 [facility] Comment on above: Performed By: #### C MP, MG, PHOS, CBC #### [address] Hemoglobin (Bld) [Mass/Vol] 16.0 g/dL High 11.8-15.4 [facility] Comment on above: Performed By: #### C MP, MG, PHOS, CBC #### [address] Lymphocytes (Bld) [#/Vol] 2.5 10*3/uL Normal 1.00-4.8 [facility] Comment on above: Performed By: #### C MP, MG, PHOS, CBC #### [address] Lymphocytes/100 WBC (Bld) 24.6 % Normal . [facility] Comment on above: Performed By: #### C MP, MG, PHOS, CBC #### [address] MCH (RBC) [Entitic mass] 31.7 pg Normal 24.7-34.3 [facility] Comment on above: Performed By: #### C MP, MG, PHOS, CBC #### [address] MCV (RBC) [Entitic vol] 95.1 fL Normal 80-100 [facility] Comment on above: Performed By: #### C MP, MG, PHOS, CBC #### [address] Mean Corpuscular HGB Conc 33.3 g/dL Normal 32.0-35.0 [facility] Comment on above: Performed By: #### C MP, MG, PHOS, CBC #### [facility] [address] [place] [address] [place] Monocytes (Bld) [#/Vol] 0.8 10*3/uL Normal 0.0-0.8 [facility] Comment on above: Performed By: #### C MP, MG, PHOS, CBC #### [place] [address] [place] Monocytes/100 WBC (Bld) 20.25 % High 0.00-20.00 [facility] Comment on above: Result Comment: For adults in ED, MDW > 20.0 may be associated with a higher risk of sepsis during the first 12 hrs of hospital admission Performed By: #### C MP, MG, PHOS, CBC #### [address] Monocytes/100 WBC (Bld) 7.6 % Normal . [facility] Comment on above: Performed By: #### C MP, MG, PHOS, CBC #### [place] [address] [place] Neutrophils (Bld) [#/Vol] 6.5 10*3/uL Normal 1.8-7.7 [facility] Comment on above: Performed By: #### C MP, MG, PHOS, CBC #### [place] [address] [place] Neutrophils/100 WBC (Bld) 64.0 % Normal . [facility] Comment on above: Performed By: #### C MP, MG, PHOS, CBC #### [facility] [address] [place] [address] [place] NRBC% 0.2 /100{WBC} Normal 0-0.5 [facility] Comment on above: Performed By: #### C MP, MG, PHOS, CBC #### [address] Platelet Estimate Decreased Normal Normal [facility] Comment on above: Performed By: #### C MP, MG, PHOS, CBC #### [address] Platelet mean volume (Bld) [Entitic vol] 9.9 fL Normal 6.3-10.7 [facility] Comment on above: Performed By: #### C MP, MG, PHOS, CBC #### [address] Platelet Morphology Normal Normal Normal [facility] Comment on above: Result Comment: PERF ORMED BY: [place] [address] PATHOLOGIST ASSISTANT MERCHANDISE MANAGER LE MACE M.D. Performed By: #### C MP, MG, PHOS, CBC #### [address] Platelets (Bld) [#/Vol] 136 10*3/uL Low 150-450 [facility] Comment on above: Performed By: #### C MP, MG, PHOS, CBC #### [address] Polychromasia Slight Normal [facility] Comment on above: Performed By: #### C MP, MG, PHOS, CBC #### [address] RBC (Bld) [#/Vol] 5.06 10*6/uL High 3.60-5.00 [facility] Comment on above: Performed By: #### C MP, MG, PHOS, CBC #### [address] WBC (Bld) [#/Vol] 10.2 10*3/uL Normal 3.8-11.6 [facility] Comment on above: Performed By: #### C MP, MG, PHOS, CBC #### [address] WBC (Bld) [#/Vol] 10.9 10*3/uL Normal 3.8-11.6 [facility] Comment on above: Performed By: #### C MP, MG, PHOS, CBC #### [facility] [address] Serum or plasma albumin/glob ulin mass ratioOrdered By: Wesley Villafuerte on 04-28-2024 Albumin/Globulin [Mass ratio] Serum or plasma albumin/globulin mass ratio [facility] Serum or plasma anion gap de terminationOrdered By: Wesley Villafuerte on 04-28-2024 Anion gap [Moles/Vol] Serum or plasma an ion gap determination 6.0-15.[address] [facility] Sodium [Moles/volume] in Ser um or PlasmaOrdered By: Wesley Villafuerte on 04-28-2024 Sodium [Moles/Vol] Sodium [Moles/volume ] in Serum or Plasma 136-[address] [facility] Specific gravity Test strip (U) [Rel density]Ordered By: Wesley Villafuerte on 04-28-2024 Specific gravity (U) [Rel density] Specific gravity of Urine by Test strip High 1.001-1.[address] [facility] Troponin I High Sensitivityo n 04-28-2024 Troponin I High Sensitivity 5.1 pg/mL Normal 0.0-15.0 [facility] Comment on above: Result Comment: PERF ORMED BY: [facility] [address] [place] [address] PATHOLOGIST ASSISTANT MERCHANDISE MANAGER LE MACE M.D. Performed By: #### T SH3 wRFLX, LIPID #### [facility] [address] Troponin I.cardiac [Mass/vol ume] in Serum or Plasma by Detection limit <= 0.01 ng/Ordered By: Wesley Villafuerte on 04-28-2024 Troponin I.cardiac DL <= 0.01 ng/mL [Mass/Vol] Troponin I.cardiac [Mass/volume] in Serum or Plasma by Detection limit <= 0.01 ng/ 0.0-15.[address] [facility] Urea nitrogen [Mass/volume] in Serum or PlasmaOrdered By: Wesley Villafuerte on 04-28-2024 Urea nitrogen [Mass/Vol] Urea nitrogen [Mass/volume] in Serum or Plasma 7-[address] [facility] Urobilinogen Test strip (U) [Mass/Vol]Ordered By: Wesley Villafuerte on 04-28-2024 Urobilinogen (U) [Mass/Vol] Urobilinogen [Mass/volume] in Urine by Test strip Normal [facility] WBC Auto (Bld) [#/Vol]Ordere d By: Wesley Villafuerte on 04-28-2024 WBC (Bld) [#/Vol] Leukocytes [#/volume ] in Blood by Automated count 3.8-11.[address] [facility] X-ray reportOrdered By: Oz Bowling on 04-28-2024 Study report [facility] Main [place] [address] [place] [address] XRay Report Signed Patient: Taye Gay MR#: [id number] : 1955 Acct:[id number] Age/Sex: 68 / F ADM Date: 4 Loc: ER Room: Type: [facility] ER Attending Dr: Copies to: Wesley Villafuerte [...] Oz Bowling M.D.04/28/2024 9:46 PM Dictation Location: [place] [address] Transcribed By: [facility] 04/28/242145 Dictated By: Oz Bowling II, MD 04/28/242143 Signed By: 04/28/242145 [facility] Work Phone: XR chest 2V*on 04-28-2024 XR chest 2V* [facility] Main [place] [address] [place] [address] XRay Report Signed Patient: Taye Gay MR#: [id number] 19 : 1955 Acct:[id number] Age/Sex: 68 / F ADM Date: 04/28/24 Loc: ER Room: Type: [facility] ER Attending Dr: Copies to: Wesley Villafuerte [...] Oz Bowling M.D.04/28/2024 9:46 PM Dictation Location: [place] [address] Transcribed By: [facility] 04/28/242145 Dictated By: Oz Bowling II, MD 04/28/242143 Signed By: 04/28/242145 Normal [facility] Yeast.budding [Presence] in Urine by Computer assisted methodOrdered By: Wesley Villafuerte on 04-28-2024 Yeast.budding Computer assisted Ql (U) Yeast.budding [Presence] in Urine by Computer assisted method High None Seen [facility] aPTT in Platelet poor plasma by Coagulation assayOrdered By: Wesley Villafuerte on 04-28-2024 aPTT Coag (PPP) [Time] Activated partial thromboplastin time (aPTT) in platelet poor plasma by coagulation a 25.1-36.[address] [facility] Comment on above: A hematocrit value g reater than 55% may lead to inaccurate results in coagulation testing. Patients having hematocrit values >55% require a special collection tube for coagulation studies. Please contact the laboratory at [phone] for redraw instructions. pH Test strip (U)Ordered By: Wesley Villafuerte on 04-28-2024 pH (U) pH of Urine by Test strip 5.0-9.[address] [facility] ECG 12 lead ECGon 04-27-2024 ECG 12 lead ECG [facility] [place] [address] Electrocardiograph Report Signed Patient: Taye Gay MR#: [id number] 19 : 1955 Acct:[id number] Age/Sex: 68 / F ADM Date: 04/27/24 Loc: ER Room: Type: [facility] ER Attending Dr: Ordering Provider: [...] By Rl Villavicencio DO 0219 Normal [facility] Alanine aminotransferase [En zymatic activity/volume] in Serum or PlasmaOrdered By: Nataliya Jane on 04-14-2024 ALT [Catalytic activity/Vol] Alanine aminotransferase [Enzymatic activity/volume] in Serum or Plasma [facility] Albumin [Mass/volume] in Ser um or Plasma by Bromocresol green (BCG) dye binding methoOrdered By: Nataliya Jane on 04-14-2024 Albumin BCG dye [Mass/Vol] Albumin [Mass/volume] in Serum or Plasma by Bromocresol green (BCG) dye binding metho 3.5-5.[address] [facility] Alkaline phosphatase [Enzyma tic activity/volume] in Serum or PlasmaOrdered By: Nataliya Lucinda on 04-14-2024 ALP [Catalytic activity/Vol] Alkaline phosphatase [Enzymatic activity/volume] in Serum or Plasma 34-[address] [facility] Aspartate aminotransferase [ Enzymatic activity/volume] in Serum or PlasmaOrdered By: Nataliya Lucinda on 04-14-2024 AST [Catalytic activity/Vol] Aspartate aminotransferase [Enzymatic activity/volume] in Serum or Plasma 13-[address] [facility] Bilirubin.total [Mass/volume ] in Serum or PlasmaOrdered By: Nataliya Lucinda on 04-14-2024 Bilirubin [Mass/Vol] Bilirubin.total [Mass/volume] in Serum or Plasma 0.3-1.[address] [facility] CBC W Auto Differential pane l (Bld)on 04-14-2024 Basophils (Bld) [#/Vol] 0.1 10*3/uL 0.0 - 0.2 10*3/uL [facility] Basophils/100 WBC Manual cnt (Syn fld) 0.6 % . [facility] Eosinophils (Bld) [#/Vol] 0.3 10*3/uL 0.0 - 0.45 10*3/uL [facility] Eosinophils/100 WBC Manual cnt (Syn fld) 2.6 % . [facility] Erythrocyte distribution width (RBC) [Ratio] 15 % 11.9 - 15.3 % [facility] Hematocrit (Bld) [Volume fraction] 49.7 % High 34.0 - 46.4 % [facility] Hemoglobin (Bld) [Mass/Vol] 16.6 g/dL High 11.8 - 15.4 g/dL [facility] Interpretation and review of laboratory results Abnormal [facility] Lymphocytes (Bld) [#/Vol] 2.1 10*3/uL 1.00 - 4.8 10*3/uL [facility] Lymphocytes/100 WBC Manual cnt (Syn fld) 19.3 % . [facility] MCH (RBC) [Entitic mass] 31.2 pg 24.7 - 34.3 pg [facility] MCHC (RBC) [Mass/Vol] 33.4 g/dL 32.0 - 35.0 g/dL [facility] MCV (RBC) [Entitic vol] 93.4 fL 80 - 100 fL [facility] Monocytes (Bld) [#/Vol] 0.9 10*3/uL High 0.0 - 0.8 10*3/uL [facility] Monocytes+Macrophages/1 00 WBC Manual cnt (Syn fld) 8.7 % . [facility] Neutrophils (Bld) [#/Vol] 7.3 10*3/uL 1.8 - 7.7 10*3/[facility]L [facility] Neutrophils/100 WBC Manual cnt (Syn fld) 68.8 % . [facility] NRBC 0.1 /100{WBC} 0 - 0.5 /100{WBC} [facility] Platelet mean volume (Bld) [Entitic vol] 8.9 fL 6.3 - 10.7 fL [facility] Platelets (Bld) [#/Vol] 167 10*3/uL 150 - 450 10*3/uL [facility] RBC LM.HPF (Urine sed) [#/Area] 5.32 10*6/uL High 3.60 - 5.00 10*6/uL [facility] WBC (Bld) [#/Vol] 10.7 10*3/uL 3.8 - 11.6 10*3/uL [facility] WBC LM.HPF (Urine sed) [#/Area] 10.7 10*3/uL 3.8 - 11.6 10*3/uL [facility] Calcium [Mass/volume] in Ser um or PlasmaOrdered By: Nataliya Jane on 04-14-2024 Calcium [Mass/Vol] Calcium [Mass/volume ] in Serum or Plasma 8.6-10.[address] [facility] Carbon dioxide, total [Moles /volume] in Serum or PlasmaOrdered By: Nataliya Jane on 04-14-2024 CO2 [Moles/Vol] Carbon dioxide, tota l [Moles/volume] in Serum or Plasma 21.0-31.[address] [facility] Chloride [Moles/volume] in S elliot or PlasmaOrdered By: Nataliya Jane on 04-14-2024 Chloride [Moles/Vol] Chloride [Moles/vol ume] in Serum or Plasma 98-[address] [facility] Complete Blood Count Auto Di ffon 04-14-2024 Basophils (Bld) [#/Vol] 0.1 10*3/uL Normal 0.0-0.2 [facility] Comment on above: Result Comment: PERF ORMED BY: [place] [address] PATHOLOGIST ASSISTANT MERCHANDISE MANAGER LE MACE M.D. Performed By: #### C MP, LDH, PATH SLIDE REV, CBC #### [address] Basophils/100 WBC (Bld) 0.6 % Normal . [facility] Comment on above: Performed By: #### C MP, LDH, PATH SLIDE REV, CBC #### [address] Eosinophils (Bld) [#/Vol] 0.3 10*3/uL Normal 0.0-0.45 [facility] Comment on above: Performed By: #### C MP, LDH, PATH SLIDE REV, CBC #### [address] Eosinophils/100 WBC (Bld) 2.6 % Normal . [facility] Comment on above: Performed By: #### C MP, LDH, PATH SLIDE REV, CBC #### [address] Erythrocyte distribution width (RBC) [Ratio] 15.0 % Normal 11.9-15.3 [facility] Comment on above: Performed By: #### C MP, LDH, PATH SLIDE REV, CBC #### [address] Hematocrit (Bld) [Volume fraction] 49.7 % High 34.0-46.4 [facility] Comment on above: Performed By: #### C MP, LDH, PATH SLIDE REV, CBC #### [address] Hemoglobin (Bld) [Mass/Vol] 16.6 g/dL High 11.8-15.4 [facility] Comment on above: Performed By: #### C MP, LDH, PATH SLIDE REV, CBC #### [address] Lymphocytes (Bld) [#/Vol] 2.1 10*3/uL Normal 1.00-4.8 [facility] Comment on above: Performed By: #### C MP, LDH, PATH SLIDE REV, CBC #### [address] Lymphocytes/100 WBC (Bld) 19.3 % Normal . [facility] Comment on above: Performed By: #### C MP, LDH, PATH SLIDE REV, CBC #### [address] MCH (RBC) [Entitic mass] 31.2 pg Normal 24.7-34.3 [facility] Comment on above: Performed By: #### C MP, LDH, PATH SLIDE REV, CBC #### [address] MCV (RBC) [Entitic vol] 93.4 fL Normal 80-100 [facility] Comment on above: Performed By: #### C MP, LDH, PATH SLIDE REV, CBC #### [address] Mean Corpuscular HGB Conc 33.4 g/dL Normal 32.0-35.0 [facility] Comment on above: Performed By: #### C MP, LDH, PATH SLIDE REV, CBC #### [address] Monocytes (Bld) [#/Vol] 0.9 10*3/uL High 0.0-0.8 [facility] Comment on above: Performed By: #### C MP, LDH, PATH SLIDE REV, CBC #### [address] Monocytes/100 WBC (Bld) 8.7 % Normal . [facility] Comment on above: Performed By: #### C MP, LDH, PATH SLIDE REV, CBC #### [address] Neutrophils (Bld) [#/Vol] 7.3 10*3/uL Normal 1.8-7.7 [facility] Comment on above: Performed By: #### C MP, LDH, PATH SLIDE REV, CBC #### [address] Neutrophils/100 WBC (Bld) 68.8 % Normal . [facility] Comment on above: Performed By: #### C MP, LDH, PATH SLIDE REV, CBC #### [address] NRBC% 0.1 /100{WBC} Normal 0-0.5 [facility] Comment on above: Performed By: #### C MP, LDH, PATH SLIDE REV, CBC #### [address] Platelet mean volume (Bld) [Entitic vol] 8.9 fL Normal 6.3-10.7 [facility] Comment on above: Performed By: #### C MP, LDH, PATH SLIDE REV, CBC #### [address] Platelets (Bld) [#/Vol] 167 10*3/uL Normal 150-450 [facility] Comment on above: Performed By: #### C MP, LDH, PATH SLIDE REV, CBC #### [address] RBC (Bld) [#/Vol] 5.32 10*6/uL High 3.60-5.00 [facility] Comment on above: Performed By: #### C MP, LDH, PATH SLIDE REV, CBC #### [address] WBC (Bld) [#/Vol] 10.7 10*3/uL Normal 3.8-11.6 [facility] Comment on above: Performed By: #### C MP, LDH, PATH SLIDE REV, CBC #### [address] Comprehensive Metabolic Pane juan 04-14-2024 Albumin [Mass/Vol] 4.1 g/dL Normal 3.5-5.7 [facility] Comment on above: Performed By: #### L IPID, BMP #### [address] Albumin/Globulin [Mass ratio] 1.2 {ratio} Normal [facility] Comment on above: Performed By: #### L IPID, BMP #### [address] ALP [Catalytic activity/Vol] 92 U/L Normal 34-104 [facility] Comment on above: Performed By: #### L IPID, BMP #### [address] ALT [Catalytic activity/Vol] 20 U/L Normal 7-52 [facility] Comment on above: Performed By: #### L IPID, BMP #### [address] Anion gap [Moles/Vol] 16.1 mmol/L High 6.0-15.0 [facility] Comment on above: Performed By: #### L IPID, BMP #### [address] AST [Catalytic activity/Vol] 26 U/L Normal 13-39 [facility] Comment on above: Performed By: #### L IPID, BMP #### [place] [address] [place] Bilirubin [Mass/Vol] 0.6 mg/dL Normal 0.3-1.0 [facility] Comment on above: Performed By: #### L IPID, BMP #### [place] [address] [place] Calcium [Mass/Vol] 10.0 mg/dL Normal 8.6-10.3 [facility] Comment on above: Performed By: #### L IPID, BMP #### [place] [address] [place] Chloride [Moles/Vol] 101 mmol/L Normal 98-107 [facility] Comment on above: Performed By: #### L IPID, BMP #### [facility] [address] [place] [address] [place] CO2 [Moles/Vol] 26.9 mmol/L Normal 21.0-31.0 [facility] Comment on above: Performed By: #### L IPID, BMP #### [place] [address] [place] Creatinine [Mass/Vol] 0.83 mg/dL Normal 0.60-1.20 [facility] Comment on above: Performed By: #### L IPID, BMP #### [facility] [address] [place] [address] [place] Creatinine Clr Calc Pharmacy 78.05 Normal [facility] Comment on above: Performed By: #### L IPID, BMP #### [place] [address] [place] GFR/1.73 sq M.predicted MDRD (S/P/Bld) [Vol rate/Area] mL/min/{1.73_m2} Normal [facility] Comment on above: Performed By: #### L IPID, BMP #### [place] [address] [place] Globulin (S) [Mass/Vol] 3.3 g/dL Normal T [facility] Comment on above: Performed By: #### L IPID, BMP #### [place] [address] [place] Glucose [Mass/Vol] 169 mg/dL High 70-100 [facility] Comment on above: Result Comment: [facility] Glucose Reference Range is dependent on time and content of last meal. Glucose of more than 200 mg/dL in a nonstressed, ambulatory subject supports the diagnosis of Diabetes Mellitus. ADA recommended reference range Performed By: #### L IPID, BMP #### [facility] [address] Potassium [Moles/Vol] 4.0 mmol/L Normal 3.5-5.1 [facility] Comment on above: Performed By: #### L IPID, BMP #### [address] [place] [address] [facility] Protein [Mass/Vol] 7.4 g/dL Normal 6.4-8.9 [facility] Comment on above: Performed By: #### L IPID, BMP #### [facility] [address] Sodium [Moles/Vol] 140 mmol/L Normal 136-145 [facility] Comment on above: Performed By: #### L IPID, BMP #### [facility] [address] Urea nitrogen [Mass/Vol] 8 mg/dL Normal 7-25 [facility] Comment on above: Performed By: #### L IPID, BMP #### [facility] [address] [place] [id number] [facility] Comprehensive metabolic pane [facility] 04-14-2024 Albumin [Mass/Vol] 4.1 g/dL 3.5 - 5.7 g/dL [facility] Albumin/Globulin [Mass ratio] 1.2 {ratio} [facility] ALP [Catalytic activity/Vol] 92 U/L 34 - 104 U/L [facility] ALT [Catalytic activity/Vol] 20 U/L 7 - 52 U/L [facility] Anion gap [Moles/Vol] 16.1 mmol/L High 6.0 - 15.0 meq/L [facility] AST [Catalytic activity/Vol] 26 U/L 13 - 39 U/L [facility] Bilirubin [Mass/Vol] 0.6 mg/dL 0.3 - 1 .0 mg/dL [facility] Calcium [Mass/Vol] 10 mg/dL 8.6 - 10. 3 mg/dL [facility] Chloride [Moles/Vol] 101 mmol/L 98 - 10 7 mmol/L [facility] CO2 [Moles/Vol] 26.9 mmol/L 21.0 - 31.0 mmol/L [facility] Creatinine (U) [Mass/Vol] 0.83 mg/dL 0.60 - 1.20 mg/dL [facility] CREATININE CLR CALC PHARMACY 78.05 [facility] ESTIMATED GFR mL/Min [facility] Globulin (S) [Mass/Vol] 3.3 g/dL [facility] Glucose [Mass/Vol] 169 mg/dL High 70 - 100 mg/dL [facility] Comment on above: Random Glucose Refer ence Range is dependent on time and content of last meal. Glucose of more than 200 mg/dL in a nonstressed, ambulatory subject supports the diagnosis of Diabetes Mellitus. ADA recommended reference range Interpretation and review of laboratory results Abnormal [facility] Potassium [Moles/Vol] 4 mmol/L 3.5 - 5.1 mmol/L [facility] Protein [Mass/Vol] 7.4 g/dL 6.4 - 8.9 g/dL [facility] Sodium [Moles/Vol] 140 mmol/L 136 - 145 mmol/L [facility] Urea nitrogen [Mass/Vol] 8 mg/dL 7 - 25 mg/dL [facility] Creatinine [Mass/volume] in Serum or PlasmaOrdered By: Nataliya Jane on 04-14-2024 Creatinine [Mass/Vol] Creatinine [Mass/v olume] in Serum or Plasma 0.60-1.[address] [facility] Globulin Calc (S) [Mass/Vol] Ordered By: Nataliya Jane on 04-14-2024 Globulin (S) [Mass/Vol] Serum globulin measurement by calculation (mass/volume) [facility] Glucose [Mass/volume] in Ser um or PlasmaOrdered By: Nataliya Jane on 04-14-2024 Glucose [Mass/Vol] Glucose [Mass/volume ] in Serum or Plasma High 70-[address] [facility] Comment on above: ADA recommended refe rence rangeRandom Glucose Reference Range is dependent on time and content of last meal. Glucose of more than 200 mg/dL in a nonstressed, ambulatory subject supports the diagnosis of Diabetes Mellitus. Juan 04-14-2024 L ---- Specimen: [id number] Received: 04/14/24 Status: FIDEL Ta Num: [id number] Spec Type: Impression Subm Dr: Nataliya Jane APRN Tissues: PATHPER Procedures: PATHREVIEW Age/ Patient Sex Location Account Attending Physician Taye Gay 68/F XT [id number] Nataliya Jane APRN SPEC NUM: [id number] RECD: 04/14/24 STATUS: FIDEL TA NUM: [id number] RONNY: 04/14/24- SUBM DR: Nataliya Jane APRN ENTERED: 04/14/24-[address]: SPEC TYPE: Impression DEPT: OR ENTERED BY: [id number] RECV BY: [id number] ORDERED: PATHREVIEW ORDERED: PATHREVIEW Pathologist Review Abnormal [...] chronic smoking. Clinical correlations are suggested CPT: 81327 Specimen: [id number] Received: 04/14/24 Status: FIDEL Ta Num: [id number] Spec Type: Impression Subm Dr: Nataliya Jane APRN Tissues: PATHPER Procedures: PATHREVIEW Patient: Taye Gay [id number] (Continued) Specimen: [id number] Received: 04/14/24 (Continued) Signed (signature on file) Nereyda Holt MD 04/15/24 0920 Specimen: [id number] Received: 04/14/24 Status: FIDEL Ta Num: [id number] Spec Type: Impression Subm Dr: Nataliya Jane APRN Tissues: PATHPER Procedures: PATHREVIEW Patient: Taye Gay [id number] (Continued) Specimen: [id number] Received: 04/14/24 (Continued) CBC Date Time Test Result Flag [...] % Lymp % (Auto) 19.3 . % Gosper % (Auto) 8.7 . % Eos % (Auto) 2.6 . % Baso % (Auto) 0.6 . % NRBC% 0.1 0-0.5 /100 WBC Neut # (Auto) 7.3 1.8-7.7 x10E3/uL Lymph # (Auto) 2.1 1.00-4.8 x10E3/uL Gosper # (Auto) 0.9 H 0.0-0.8 x10E3/uL Eos # (Auto) 0.3 0.0-0.45 x10E3/uL Baso# (Auto) 0.1 0.0-0.2 x10E3/uL Specimen: [id number] Received: 04/14/24 Status: FIDEL Ta Num: [id number] Spec Type: Impression Subm Dr: Nataliya Jane APRN Tissues: PATHPER Procedures: PATHREVIEW Patient: Taye Gay [id number] (Continued) Signed (signature on file) Tyorne-Fer Holt MD 04/15/24 0920 Normal [facility] LDH Lactate Dehydrogenaseon 04-14-2024 LDH Lactate Dehydrogenase 155 U/L Normal 140-271 [facility] Comment on above: Result Comment: PERF ORMED BY: [place] [address] PATHOLOGIST ASSISTANT MERCHANDISE MANAGER LE MACE M.D. Performed By: #### L IPID, BMP #### [address] LDH Lactate to pyruvate reac tion [Catalytic activity/Vol]on 04-14-2024 LDH LACTATE DEHYDROGENASE 155 U/L 140 - 271 U/L [facility] Lactate dehydrogenase [Enzym atic activity/volume] in Serum or Plasma by Lactate to pyOrdered By: Nataliya Jane on 04-14-2024 LDH Lactate to pyruvate reaction [Catalytic activity/Vol] Lactate dehydrogenase [Enzymatic activity/volume] in Serum or Plasma by Lactate to py 140-[address] [facility] No Panel Informationon 04-14 [facility] No Panel InformationOrdered By: Nataliya Jane on 04-14-2024 Estimated GFR (CKD-EPI) > 60.0 mL/Min [facility] Creatinine Clearance (Chem 78.[address] [facility] Slides for Pathologist Review Ordered path review [facility] PATHOLOGIST SLIDE REVIEW (FR MC)on 04-14-2024 PATHOLOGIST SLIDE REVIEW Ordered Path Review [facility] Pathologist Slide Reviewon 1 06-15-2023 Pathologist Slide Review Ordered Path Review Normal [facility] Comment on above: Result Comment: PERF ORMED BY: [place] [address] PATHOLOGIST ASSISTANT MERCHANDISE MANAGER LE MACE M.D. Performed By: #### L IPID, BMP #### [address] Potassium [Moles/volume] in Serum or PlasmaOrdered By: Nataliya Jane on 04-14-2024 Potassium [Moles/Vol] Potassium [Moles/v olume] in Serum or Plasma 3.5-5.[address] [facility] Protein [Mass/volume] in Ser um or PlasmaOrdered By: Nataliya Lucinda on 04-14-2024 Protein [Mass/Vol] Protein [Mass/volume ] in Serum or Plasma 6.4-8.[address] [facility] Serum or plasma albumin/glob ulin mass ratioOrdered By: Nataliya Jane on 04-14-2024 Albumin/Globulin [Mass ratio] Serum or plasma albumin/globulin mass ratio [facility] Serum or plasma anion gap de terminationOrdered By: Nataliya Jane on 04-14-2024 Anion gap [Moles/Vol] Serum or plasma an ion gap determination High 6.0-15.[address] [facility] Sodium [Moles/volume] in Ser um or PlasmaOrdered By: Nataliya Jane on 04-14-2024 Sodium [Moles/Vol] Sodium [Moles/volume ] in Serum or Plasma 136-[address] [facility] Urea nitrogen [Mass/volume] in Serum or PlasmaOrdered By: Nataliya Jane on 04-14-2024 Urea nitrogen [Mass/Vol] Urea nitrogen [Mass/volume] in Serum or Plasma 7-[address] [facility] ECG 12 Leadon 03-25-2024 Normal sinus rhythm [facility] Work Phone: [facility] Work Phone: Aerobic cultureOrdered By: Vamsi Fritz on 01-07-2024 Bacteria identified Aer cx Nom (Unsp spec) [facility] Superficial Wound Cultureon 01-07-2024 Superficial Wound Culture Plantar right foot Result Tab Codes Light Normal Skin Erna 2 Days PERFORMED BY: [place] [address] PATHOLOGIST ASSISTANT MERCHANDISE MANAGER SADAF STANTON M.D. Normal [facility] Comment on above: Performed By: #### C FÉLIX, , FAROOQ, CBC #### [place] [id number] [facility] US venous duplex LE BIon US venous duplex LE BI [facility] Main [place] [address] [place] [address] Ultrasound Report Signed Patient: Taye Gay MR#: [id number] [birth year] : 1955 Acct:[id number] Age/Sex: 68 / F ADM Date: 01/06/24 Loc: Room: Type: [facility] Attending Dr: Roland Faust MD Ordering Provider: Roland Faust MD Date of Service: 01/06/24 US/US venous duplex LE BI: R60.0,M79.671,RULE OUT DVT Copies to: Roland Faust MD BILATERAL LOWER EXTREMITY VENOUS DUPLEX INDICATION: [...] Tray Nava MD01/07/2024 9:46 AM Dictation Location: [place] [address] Tech: Carmen Motley Transcribed By: AMY 01/07/24945 Dictated By: Tray Nava MD 01/07/24945 Signed By: 01/07/24945 Normal [facility] ECG 12 Leadon 12-16-2023 [facility] Work Phone: Normal sinus rhythm [facility] Work Phone: ANAon 12-07-2023 ANTINUCLEAR ABS, IFA Positive Critically abnormal . [facility] Comment on above: Negative <1:80 Borderline 1:80 Positive >1:80 Interpretation and review of laboratory results Abnormal [facility] NOTE 1 Comment . [facility] Comment on above: Pattern Potential Di katia Association Homogeneous Systemic Lupus Erythematosus, Drug Induced Systemic Lupus Erythematosus, Chronic Autoimmune hepatitis, Juvenile Idiopathic Arthritis Speckled Sjogren Syndrome, Systemic Lupus Erythematosus, Subacute Cutaneous Lupus, Lupus, Congenital Heart Block, Mixed Connective Tissue Disease, Scleroderma-diffuse, Scleroderma-Autoimmune Myositis Overlap Syndrome, Systemic Lupus Vnwfhubxsqjwc-Nxymriltnzb-Oghejobeef Myositis Overlap Syndrome, Systemic Autoimmune Rheumatic Disease, [...] Cytopenias, Linear Scleroderma, Antiphospholipid Syndrome Performed at: [address] [id number] Formation Fracturing Operator: Yuri Osullivan PhD, Phone: [phone] SPECKLED PATTERN 1:320 High . [facility] Comment on above: ICAP nomenclature: A C-2,4,5,29 ANCA PROFILE (ANCA+MPO+PR3)o n 12-07-2023 ANTIMYELOPEROXIDASE (MPO) ABS <0.2 0.0 - 0.9 [facility] ATYPICAL PANCA <1:20 Neg:<1:20 [facility] Comment on above: The atypical pANCA p attern has been observed in a significant percentage of patients with ulcerative colitis, primary sclerosing cholangitis and autoimmune hepatitis. Performed at: [address] [id number] Formation F[employer] Operator: Christine Pham MD, Phone: [phone] Performed at: [address] [id number] Formation F[employer]uring Operator: Yuri Osullivan PhD, Phone: [phone] CYTOPLASMIC (C-ANCA) <1:20 Neg:<1:20 [facility] PERINUCLEAR (P-ANCA) <1:20 Neg:<1:20 [facility] Comment on above: The presence of posi tive fluorescence exhibiting P-ANCA or C-ANCA patterns alone is not specific for the diagnosis of Marni's Granulomatosis (WG) or microscopic polyangiitis. Decisions about treatment should not be based solely on ANCA IFA results. The International ANCA Group Consensus recommends follow up testing of positive sera with both OR- 3 and MPO-ANCA enzyme immunoassays. As many as 5% serum samples are positive only by EIA. Ref. AM J Clin Pathol 1999;111:507-513. PROTEINASE 3 (PR3) ANTIBODIES <0.2 0.0 - 0.9 [facility] ANTI-CENTROMERE B ANTIBODIES on 12-07-2023 ANTI-CENTROMERE B ANTIBODIES <0.2 0.0 - 0.9 [facility] Comment on above: Performed at: [address] [id number] Formation Fracturing Operator: Yuri Osullivan PhD, Phone: [phone] ANTI-DSDNA(DBL)ABon 12-07-19 ANTI-DSDNA(DBL)AB 1 0 - 9 [facility] Comment on above: Negative <5 Equivocal 5 - 9 Positive >9 ANTI-RNPon 12-07-2023 ANTI-EMG TECHNICIAN 0.3 0.0 - 0.9 [facility] ANTIRIBOSOMAL P ANTIBODIESon 12-07-2023 ANTIRIBOSOMAL P ANTIBODIES <0.2 0.0 - 0.9 [facility] Anti-Fritz antibodyon 2023 ANTI-FRITZ ANTIBODIES <0.2 0.0 - 0.9 [facility] HISTONE ANTIBODIESon 024 HISTONE ANTIBODIES 0.6 0.0 - 0.9 [facility] Comment on above: Negative <1.0 Weak Positive 1.0 - 1.5 Moderate Positive 1.6 - 2.5 Strong Positive >2.5 Performed at: [address] [id number] Formation Fracturing Operator: Christine Pham MD, Phone: [phone] SUSHMA-1 ANTIBODYon 12-07-2023 SUSHMA-1 ANTIBODY <0.2 0.0 - 0.9 [facility] Mitochondrial antibodies, M2 on 12-07-2023 MITOCHONDRIAL (M2) ANTIBODY <20.0 0.0 - 20.0 [facility] Comment on above: Negative 0.0 - 20.0 Equivocal 20.1 - 24.9 Positive >24.9 Mitochondrial (M2) Antibodies are found in 90-96% of patients with primary biliary cirrhosis. Performed at: [facility] [id number] Formation Fracturing Operator: Yuri Osullivan PhD, Phone: [phone] No Panel Informationon 12-06 [facility] SCLERODERMA 70 ANTIBODIESon 12-07-2023 SCLERODERMA 70 ANTIBODIES <0.2 0.0 - 0.9 [facility] SJOGRENS ANTI-SSA/SSBon 11-27 SS-A/RO SJOGRENS ANTIBODY <0.2 0.0 - 0.9 [facility] SS-B/LA SJOGRENS ANTIBODY <0.2 0.0 - 0.9 [facility] SRP AUTOANTIBODIESon 024 SRP (SIGNAL RECOG. PARTICLE) Negative Negative [facility] Comment on above: This test was develo ped and its performance characteristics determined by [facility]. It has not been cleared or approved by the Food and Drug Administration. Performed at: [facility] [address] [place] [id number] Formation Fracturing Operator: Juan Cruz MD, Phone: [phone] Alanine aminotransferase [En zymatic activity/volume] in Serum or PlasmaOrdered By: Tolu Salinas on 12-02-2023 ALT [Catalytic activity/Vol] 31 U/L 7-[address] [facility] Albumin [Mass/volume] in Ser um or Plasma by Bromocresol green (BCG) dye binding methoOrdered By: Tolu Salinas on 12-02-2023 Albumin BCG dye [Mass/Vol] 4.2 g/dL 3.5-5.[address] [facility] Alkaline phosphatase [Enzyma tic activity/volume] in Serum or PlasmaOrdered By: Tolu Salinas on 12-02-2023 ALP [Catalytic activity/Vol] 75 U/L 34-[address] [facility] Aspartate aminotransferase [ Enzymatic activity/volume] in Serum or PlasmaOrdered By: Tolu Salinas on 12-02-2023 AST [Catalytic activity/Vol] 37 U/L 13-[address] [facility] Basophil percentageOrdered B y: Oz Kincaid on 12-02-2023 Basophil percentage 96 ug/dL 80-158 [facility] Comment on above: This test was develo ped and its performance characteristicsdetermined by [facility]. It has not been cleared orapproved by the Food and Drug Administration. Detection Limit = 5Performed at: [facility] [address] [id number] Director: Christine Pham MD, Phone: [phone] Basophil percentage 2 ug/L 0-9 [facility] Comment on above: This test was develo ped and its performance characteristicsdetermined by [employer]. It has not been cleared orapproved by the Food and Drug Administration. Detection Limit = 1 Bilirubin.total [Mass/volume ] in Serum or PlasmaOrdered By: Tolu Salinas on 12-02-2023 Bilirubin [Mass/Vol] 0.4 mg/dL 0.3-1.0 [facility] Blood lead detectionOrdered By: Oz Kincaid on 12-02-2023 Lead Ql (Bld) <1.0 ug/dL 0.0-3.[address] [facility] Comment on above: Testing performed by Inductively coupled plasma/MassSpectrometry.Analysis by inductively coupled plasma/massspectrometry (ICP/MS)This test was developed and its performance characteristicsdetermined by [employer]. It has not been cleared orapproved by the Food and Drug Administration. Environmental Exposure: WHO Recommendation <5.0 Occupational Exposure: OSHA Lead Std 40.0 BOB 30.0 Detection Limit = 1.0Performed at: [employer] [facility] [id number] Director: Yuri Osullivan PhD, Phone: [phone] Blood mercury measurement (m ass/volume)Ordered By: Oz Kincaid on 12-02-2023 Mercury (Bld) [Mass/Vol] <1.0 ug/L 0.0-14.[address] [facility] Comment on above: This test was develo ped and its performance characteristicsdetermined by [employer]. It has not been cleared orapproved by the Food and Drug Administration. Detection Limit = 1.0Performed at: [facility] [address] [id number] Director: Christine Pham MD, Phone: [phone] Calcium [Mass/volume] in Ser um or PlasmaOrdered By: Tolu Salinas on 12-02-2023 Calcium [Mass/Vol] 9.9 mg/dL 8.6-10.3 [facility] Carbon dioxide, total [Moles /volume] in Serum or PlasmaOrdered By: Tolu Salinas on 12-02-2023 CO2 [Moles/Vol] 32.0 mmol/L High 21.0-31.0 [facility] Chloride [Moles/volume] in S elliot or PlasmaOrdered By: Tolu Salinas on 12-02-2023 Chloride [Moles/Vol] 103 mmol/L 98-107 [facility] Creatinine [Mass/volume] in Serum or PlasmaOrdered By: Tolu Salinas on 12-02-2023 Creatinine [Mass/Vol] 0.97 mg/dL 0.60-1.20 [facility] Globulin Calc (S) [Mass/Vol] Ordered By: Tolu Salinas on 12-02-2023 Globulin (S) [Mass/Vol] 2.7 g/dL [facility] Glucose [Mass/volume] in Ser um or PlasmaOrdered By: Tolu Salinas on 12-02-2023 Glucose [Mass/Vol] 114 mg/dL High 70-100 [facility] Comment on above: ADA recommended refe [...] p24 Ag IA Ql Non-Reactive Non Reactive [facility] Comment on above: HIV-1/HIV-2 antibodi es and HIV-1 p24 antigen were NOTdetected. There is no laboratory evidence of HIV infection.HIV NegativePerformed at: [facility] [id number] Director: Yuri Osullivan PhD, Phone: [phone] Hepatitis B virus surface Ag [Presence] in Serum or Plasma by ImmunoassayOrdered By: Oz Kincaid on 12-02-2023 HBV surface Ag IA Ql Negative Negative [facility] Hepatitis C virus IgG Ab [Pr esence] in Serum or Plasma by ImmunoassayOrdered By: Oz Kincaid on 12-02-2023 HCV IgG IA Ql Non-Reactive Non Reactive [facility] Hepatitis C virus RNA [Units /volume] (viral load) in Serum or Plasma by TEJINDER with probOrdered By: Oz Kincaid on 12-02-2023 HCV RNA TEJINDER+probe Qn N/A [facility] Hepatitis C virus RNA [log u nits/volume] (viral load) in Serum or Plasma by TEJINDER withOrdered By: Oz Kincaid on 12-02-2023 HCV RNA TEJINDER+probe [Log units/Vol] N/A [facility] Lactate dehydrogenase [Enzym atic activity/volume] in Serum or Plasma by Lactate to pyOrdered By: Oz Kincaid on 12-02-2023 LDH Lactate to pyruvate reaction [Catalytic activity/Vol] 156 U/L 140-[address] [facility] Magnesium [Mass/volume] in S elliot or PlasmaOrdered By: Tolu Salinas on 12-02-2023 Magnesium [Mass/Vol] 2.0 mg/dL 1.9-2.7 [facility] No Panel InformationOrdered By: Oz Kincaid on 12-02-2023 Miscellaneous Test 2 See comment [facility] Comment on above: See report. Scanned copy available in EMR. Hepatitis A IgM Antibody Negative Negative [facility] Hepatitis B Core IgM Antibody Negative Negative [facility] Hepatitis C Interpretation Comment . [facility] Comment on above: Not infected with HC V unless early or acute infection issuspected (which may be delayed in an immunocompromisedindividual), or other evidence exists to indicate HCVinfection.Performed at: [facility] [id number] Director: Yuri Osullivan PhD, Phone: [phone] Miscellaneous Test See comment [facility] Comment on above: See report. Scanned copy available in EMR. Whole Blood Zinc 768 ug/dL 440-860 [facility] Comment on above: This test was develo ped and its performance characteristicsdetermined by [employer]. It has not been cleared orapproved by the Food and Drug Administration.Performed at: [facility] [employer] [id number] Director: Christine Pham MD, Phone: [phone] No Panel InformationOrdered By: Tolu Salinas on 12-02-2023 Estimated GFR (CKD-EPI) > 60.0 mL/Min [facility] Creatinine Clearance (Chem N/A [facility] Potassium [Moles/volume] in Serum or PlasmaOrdered By: Tolu Salinas on 12-02-2023 Potassium [Moles/Vol] 4.5 mmol/L 3.5-5.1 [facility] Protein [Mass/volume] in Ser um or PlasmaOrdered By: Tolu Salinas on 12-02-2023 Protein [Mass/Vol] 6.9 g/dL 6.4-8.9 [facility] Serum angiotensin converting enzyme (VITA) measurementOrdered By: Oz Kincaid on 12-02-2023 Angiotensin converting enzyme [Catalytic activity/Vol] 53 U/L [address] [facility] Comment on above: Performed at: [facility] [address] [id number] Director: Yuri Osullivan PhD, Phone: [phone] Serum cryoglobulin detection Ordered By: Oz Kincaid on 12-02-2023 Cryoglobulin Ql (S) Comment None detected [facility] Comment on above: None Detected at 72 hoursThis test was developed and its performance characteristicsdetermined by [employer]. It has not been cleared orapproved by the Food and Drug Administration.Performed at: [facility] [address] [id number] Director: Yuri Osullivan PhD, Phone: [phone] Serum or plasma albumin/glob ulin mass ratioOrdered By: Tolu Salinas on 12-02-2023 Albumin/Globulin [Mass ratio] 1.6 {ratio} [facility] Serum or plasma anion gap de terminationOrdered By: Tolu Salinas on 12-02-2023 Anion gap [Moles/Vol] 8.5 mmol/L 6.0-15.0 [facility] Serum or plasma ceruloplasmi n measurement (mass/volume)Ordered By: Oz Kincaid on 12-02-2023 Ceruloplasmin [Mass/Vol] 26.8 mg/dL 19.0-39.[address] [facility] Comment on above: Performed at: [facility] [place], [place] [id number] Director: Yuri Osullivan PhD, Phone: [phone] Serum or plasma complement C 3 measurement (mass/volume)Ordered By: Oz Kincaid on 12-02-2023 Complement C3 [Mass/Vol] 147 mg/dL 82-[address] [facility] Comment on above: Performed at: [facility] [id number] [place], [place] [id number] Director: Yuri Osullivan PhD, Phone: [phone] Serum or plasma complement C 4 measurement (mass/volume)Ordered By: Oz Kincaid on 12-02-2023 Complement C4 [Mass/Vol] 32 mg/dL 12-[address] [facility] Sodium [Moles/volume] in Ser um or PlasmaOrdered By: Tolu Salinas on 12-02-2023 Sodium [Moles/Vol] 139 mmol/L 136-145 [facility] Thallium [Mass/volume] in Se rum or PlasmaOrdered By: Oz Kincaid on 12-02-2023 Thallium [Mass/Vol] <1.0 ng/mL <5.0 [facility] Comment on above: Thallium concentrati ons greater than 300 ng/ml are consistent with acute toxicity. Urine is the preferred specimen for assessment of thallium exposure. Thallium analysis performed by inductively coupled plasma / mass spectrometry (ICP/MS).This test was developed and its performance characteristicsdetermined by [employer]. It has not been cleared or approvedby the Food and Drug Administration.Performed at: [facility] [address] [id number] Director: Whitney Arevalo [facility], Phone: [phone] Urea nitrogen [Mass/volume] in Serum or PlasmaOrdered By: Tolu Salinas on 12-02-2023 Urea nitrogen [Mass/Vol] 11 mg/dL 7-[address] [facility] LACTATE AND PYRUVATEon 11-27 Interpretation and review of laboratory results Abnormal [facility] LACTIC ACID, PLASMA 27.1 mg/dL High 4.8 - 25 .7 mg/dL [facility] PYRUVIC ACID, BLOOD 0.7 mg/dL 0.3 - 0. 7 mg/dL [facility] Comment on above: This test was develo ped and its performance characteristics determined by [employer]. It has not been cleared or approved by the Food and Drug Administration. Performed at: [address] [id number] Formation Fracturing Operator: Yuri Osullivan PhD, Phone: [phone] Performed at: [facility] [id number] Formation F[employer]uring Operator: Christine Pham MD, Phone: [phone] [facility] DNA double strand Ab [Units/ volume] in SerumOrdered By: Oz Kincaid on 11-26-2023 DNA double strand Ab Qn (S) 1 [IU]/mL 0-[address] [facility] Comment on above: Negative <5 Equivoca l 5 - 9 Positive >9 Myeloperoxidase Ab [Units/vo lume] in Serum by ImmunoassayOrdered By: Oz Kincaid on 11-26-2023 Myeloperoxidase Ab IA Qn (S) <0.2 units 0.0-0.[address] [facility] No Panel InformationOrdered By: Oz Kincaid on 11-26-2023 Anti-Nuclear Antibody Comment [address] [facility] Comment on above: Pattern Potential Di sease Association Homogeneous Systemic Lupus Erythematosus, Drug Induced Systemic Lupus Erythematosus, Chronic Autoimmune hepatitis, Juvenile Idiopathic Arthritis Speckled Sjogren Syndrome, Systemic Lupus Erythematosus, Subacute Cutaneous Lupus, Lupus, Congenital Heart Block, Mixed Connective Tissue Disease, Scleroderma-diffuse, Scleroderma-Autoimmune Myositis Overlap Syndrome, Systemic Lupus Hwwdoxxwkifso-Frxthvqwuly-Zbqmcshrhu Myositis Overlap Syndrome, Systemic Autoimmune Rheumatic Disease, [...] Cytopenias, Linear Scleroderma, Antiphospholipid Syndrome Performed at: [facility] [place] [id number] [place], [place] [id number] Director: Yuri Osullivan PhD, Phone: [phone] Atypical p-ANCA <1:20 titer Neg:<1:20 [facility] Comment on above: The atypical pANCA p attern has been observed in asignificant percentage of patients with ulcerative colitis,primary sclerosing cholangitis and autoimmune hepatitis.Performed at: [facility] [id number] Director: Christine Pham MD, Phone: [phone] at: [address] [id number] Director: Yuri Osullivan PhD, Phone: [phone] Perinuclear ANCA (p-ANCA) Antibody <1:20 titer Neg:<1:[address] [facility] Comment on above: The presence of posi tive fluorescence exhibiting P-ANCA orC-ANCA patterns alone is not specific for the diagnosis ofWegener's Granulomatosis (WG) or microscopic polyangiitis.Decisions about treatment should not be based solely onANCA IFA results. The International ANCA Group Consensusrecommends follow up testing of positive sera with both OR-3 and MPO-ANCA enzyme immunoassays. As many as 5% serumsamples are positive only by EIA. Ref. AM J Clin Yunsvb7640;111:507-513. Plasma Lactic Acid, Venous 27.1 mg/dL High 4.8-25.[address] [facility] Pyruvic Acid 0.7 mg/dL 0.3-0.[address] [facility] Comment on above: This test was develo ped and its performance characteristicsdetermined by [employer]. It has not been cleared orapproved by the Food and Drug Administration.Performed at: [facility] [employer] [id number] Director: Yuri Osullivan PhD, Phone: [phone] at: [address] [id number] Director: Christine Pham MD, Phone: [phone] EMG TECHNICIAN Antibody 0.3 AI 0.0-0.[address] [facility] Scl-70 (Scleroderma) Antibody <0.2 AI 0.0-0.[address] [facility] Signal Recognition Particle (SRP) Negative Negative [facility] Comment on above: This test was develo ped and its performance characteristicsdetermined by [employer]. It has not been cleared orapproved by the Food and Drug Administration.Performed at: [facility] [id number] [place], [place] [id number] Director: Juan Cruz MD, Phone: [phone] Proteinase 3 Ab [Units/volum e] in Serum by ImmunoassayOrdered By: Oz Kincaid on 11-26-2023 Proteinase 3 Ab IA Qn (S) <0.2 units 0.0-0.[address] [facility] Ribosomal P Ab [Units/volume ] in SerumOrdered By: Oz Kincaid on 11-26-2023 Ribosomal P Ab Qn (S) <0.2 AI 0.0-0.9 [facility] Serum Sushma-1 extractable nucle ar antibody assay (units/volume)Ordered By: Oz Kincaid on 11-26-2023 Sushma-1 extractable nuclear Ab Qn (S) <0.2 AI 0.0-0.[address] [facility] Serum Sjogrens syndrome-A ex tractable nuclear antibody assay (units/volume)Ordered By: Oz Kincaid on 11-26-2023 Sjogrens syndrome-A extractable nuclear Ab Qn (S) <0.2 AI 0.0-0.[address] [facility] Serum Sjogrens syndrome-B ex tractable nuclear antibody assay (units/volume)Ordered By: Oz Kincaid on 11-26-2023 Sjogrens syndrome-B extractable nuclear Ab Qn (S) <0.2 AI 0.0-0.[address] [facility] Serum Fritz extractable nucl ear antigen (ARIELLE) antibody assay (units/volume)Ordered By: Oz Kincaid on 11-26-2023 Fritz extractable nuclear Ab Qn (S) <0.2 AI 0.0-0.[address] [facility] Serum centromere protein B a ntibody assay (units/volume)Ordered By: Oz Kincaid on 11-26-2023 Centromere protein B Ab Qn (S) <0.2 AI 0.0-0.[address] [facility] Comment on above: Performed at: [address] [id number] Director: Yuri Osullivan PhD, Phone: [phone] Serum classic neutrophil cyt oplasmic antibody titer by immunofluorescenceOrdered By: Oz Kincaid on 11-26-2023 Neutrophil cytoplasmic Ab.classic IF (S) [Titer] <1:20 titer Neg:<1:[address] [facility] Serum histone IgG antibody a ssay by immunoassay (units/volume)Ordered By: Oz Kincaid on 11-26-2023 Histone IgG IA Qn (S) 0.6 Units 0.0-0.9 [facility] Comment on above: Negative <1.0 Weak P ositive 1.0 - 1.5 Moderate Positive 1.6 - 2.5 Strong Positive >2.5Performed at: - [facility] [id number] Director: Christine Pham MD, Phone: [phone] Serum homogeneous pattern an tinuclear antibody (BEATRICE) titerOrdered By: Oz Kincaid on 11-26-2023 Homogenous nuclear Ab pattern (S) [Titer] N/A [facility] Serum mitochondria M2 IgG an tibody assay (units/volume)Ordered By: Oz Kincaid on 11-26-2023 Mitochondria M2 IgG Qn (S) <20.0 Units 0.0-20.[address] [facility] Comment on above: Negative 0.0 - 20.0 Equivocal 20.1 - 24.9 Positive >24.9Mitochondrial (M2) Antibodies are found in 90-96% ofpatients with primary biliary cirrhosis.Performed at: - [facility] [id number] Director: Yuri Osullivan PhD, Phone: [phone] Serum nuclear antibody titer Ordered By: Oz Kincaid on 11-26-2023 Nuclear Ab (S) [Titer] Positive Abnormal . [facility] Comment on above: Negative <1:80 Kev stanley 1:80 Positive >1:80 Serum speckled pattern antin uclear antibody (BEATRICE) titerOrdered By: Oz Kincaid on 11-26-2023 Speckled nuclear Ab pattern (S) [Titer] 1:[address] High . [facility] Comment on above: ICAP nomenclature: A C-2,4,5,29 Aspartate aminotransferase [ Enzymatic activity/volume] in Serum or PlasmaOrdered By: Jonas Ch on 11-15-2023 AST [Catalytic activity/Vol] 45 U/L High 13-[address] [facility] Calcium [Mass/volume] in Ser um or PlasmaOrdered By: Jonas Ch on 11-15-2023 Calcium [Mass/Vol] 10.7 mg/dL High 8.6-10.3 [facility] Carbon dioxide, total [Moles /volume] in Serum or PlasmaOrdered By: Jonas Ch on 11-15-2023 CO2 [Moles/Vol] 27.7 mmol/L 21.0-31.0 [facility] Chloride [Moles/volume] in S elliot or PlasmaOrdered By: Jonas Ch on 11-15-2023 Chloride [Moles/Vol] 102 mmol/L 98-107 [facility] Creatinine [Mass/volume] in Serum or PlasmaOrdered By: Jonas Ch on 11-15-2023 Creatinine [Mass/Vol] 1.02 mg/dL 0.60-1.20 [facility] Creatinine [Mass/volume] in UrineOrdered By: Angelique Russell on 11-15-2023 Creatinine (U) [Mass/Vol] 123.00 mg/dL [facility] Comment on above: No reference range e stablished Glucose [Mass/volume] in Ser um or PlasmaOrdered By: Jonas Ch on 11-15-2023 Glucose [Mass/Vol] 158 mg/dL High 70-100 [facility] Comment on above: ADA recommended refe rence rangeRandom Glucose Reference Range is dependent on time and content of last meal. Glucose of more than 200 mg/dL in a nonstressed, ambulatory subject supports the diagnosis of Diabetes Mellitus. Microalbumin [Mass/volume] i n UrineOrdered By: Angelique Russell on 11-15-2023 Albumin DL <= 20 mg/L (U) [Mass/Vol] 3.0 mg/dL High 0.0-1.[address] [facility] No Panel InformationOrdered By: Jonas Ch on 11-15-2023 Estimated GFR (CKD-EPI) > 60.0 mL/Min [facility] Creatinine Clearance (Chem N/A [facility] Potassium [Moles/volume] in Serum or PlasmaOrdered By: Jonas Ch on 11-15-2023 Potassium [Moles/Vol] 4.1 mmol/L 3.5-5.1 [facility] Serum or plasma anion gap de terminationOrdered By: Jonas Ch on 11-15-2023 Anion gap [Moles/Vol] 12.4 mmol/L 6.0-15.0 [facility] Sodium [Moles/volume] in Ser um or PlasmaOrdered By: Jonas Ch on 11-15-2023 Sodium [Moles/Vol] 138 mmol/L 136-145 [facility] Thyrotropin [Units/volume] i n Serum or PlasmaOrdered By: Jonas Ch on 11-15-2023 TSH Qn 3.39 m[IU]/L 0.45-5.[address] [facility] Urea nitrogen [Mass/volume] in Serum or PlasmaOrdered By: Jonas Ch on 11-15-2023 Urea nitrogen [Mass/Vol] 20 mg/dL 7-[address] [facility] Urine microalbumin/creatinin e mass ratioOrdered By: Angelique Russell on 11-15-2023 Albumin/Creatinine DL <= 20 mg/L (U) [Mass ratio] 24.4 mg/g 0.0-30.[address] [facility] Comment on above: 30-300 mg/g indicate s an increased risk for diabetic nephropathy. Greater than 300 mg/g is consistent with clinical nephropathy. (Am. J. Kidney Disease 1995, 25:107) No Panel Informationon 11-13 Bedside Glucose [address] [facility] ECG 12 Leadon 11-13-2023 Normal sinus rhythm Normal EKG QTc 457 ms [facility] Work Phone: Basophils Auto (Bld) [#/Vol] Ordered By: Chaka Frye on 11-12-2023 Basophils (Bld) [#/Vol] 0.0 10*3/uL 0.0-0.[address] [facility] Basophils/100 WBC Auto (Bld) Ordered By: Chaka Frye on 11-12-2023 Basophils/100 WBC (Bld) 0.5 % . [facility] Calcium [Mass/volume] in Ser um or PlasmaOrdered By: Chaka Frye on 11-12-2023 Calcium [Mass/Vol] 9.5 mg/dL 8.6-10.3 [facility] Carbon dioxide, total [Moles /volume] in Serum or PlasmaOrdered By: Chaka Frye on 11-12-2023 CO2 [Moles/Vol] 30.0 mmol/L 21.0-31.0 [facility] Chloride [Moles/volume] in S elliot or PlasmaOrdered By: Chaka Frye on 11-12-2023 Chloride [Moles/Vol] 103 mmol/L 98-107 [facility] Creatinine [Mass/volume] in Serum or PlasmaOrdered By: Chaka Frye on 11-12-2023 Creatinine [Mass/Vol] 0.98 mg/dL 0.60-1.20 [facility] Eosinophils Auto (Bld) [#/Vo l]Ordered By: Chaka Frye on 11-12-2023 Eosinophils (Bld) [#/Vol] 0.4 10*3/uL 0.0-0.[address] [facility] Eosinophils/100 WBC Auto (Bl d)Ordered By: Chaka Frye on 11-12-2023 Eosinophils/100 WBC (Bld) 5.2 % . [facility] Erythrocyte distribution wid th Auto (RBC) [Ratio]Ordered By: Chaka Frye on 11-12-2023 Erythrocyte distribution width (RBC) [Ratio] 14.0 % 11.9-15.[address] [facility] Glucose Glucometer (BldC) [M ass/Vol]Ordered By: Chaka Frye on 11-12-2023 Glucose [Mass/Vol] 137 mg/dL [facility] Comment on above: Random Glucose Refer ence Range is dependent on time and content of last meal. Glucose of more than 200 mg/dL in a nonstressed, ambulatory subject supports the diagnosis of Diabetes Mellitus. Glucose [Mass/volume] in Ser um or PlasmaOrdered By: Chaka Frye on 11-12-2023 Glucose [Mass/Vol] 102 mg/dL High 70-100 [facility] Comment on above: ADA recommended refe rence rangeRandom Glucose Reference Range is dependent on time and content of last meal. Glucose of more than 200 mg/dL in a nonstressed, ambulatory subject supports the diagnosis of Diabetes Mellitus. Hematocrit Auto (Bld) [Volum e fraction]Ordered By: Chaka Frye on 11-12-2023 Hematocrit (Bld) [Volume fraction] 44.6 % 34.0-46.[address] [facility] Hemoglobin [Mass/volume] in BloodOrdered By: Chaka Frye on 11-12-2023 Hemoglobin (Bld) [Mass/Vol] 14.6 g/dL 11.8-15.[address] [facility] Leukocytes [#/volume] correc deepika for nucleated erythrocytes in Blood by Automated counOrdered By: Chaka Frye on 11-12-2023 WBC corrected for nucl RBC Auto (Bld) [#/Vol] 7.4 10*3/uL 3.8-11.[address] [facility] Lymphocytes Auto (Bld) [#/Vo l]Ordered By: Chaka Frye on 11-12-2023 Lymphocytes (Bld) [#/Vol] 2.3 10*3/uL 1.00-4.[address] [facility] Lymphocytes/100 WBC Auto (Bl d)Ordered By: Chaka Frye on 11-12-2023 Lymphocytes/100 WBC (Bld) 30.8 % . [facility] MCH Auto (RBC) [Entitic mass ]Ordered By: Chaka Frye on 11-12-2023 MCH (RBC) [Entitic mass] 32.2 pg 24.7-34.[address] [facility] MCHC Auto (RBC) [Mass/Vol]Or dered By: Chaka Frye on 11-12-2023 MCHC (RBC) [Mass/Vol] 32.8 g/dL 32.0-35.0 [facility] MCV Auto (RBC) [Entitic vol] Ordered By: Chaka Frye on 11-12-2023 MCV (RBC) [Entitic vol] 98.1 fL 80-100 [facility] Magnesium [Mass/volume] in S elliot or PlasmaOrdered By: Chaka Frye on 11-12-2023 Magnesium [Mass/Vol] 1.9 mg/dL 1.9-2.7 [facility] Monocytes Auto (Bld) [#/Vol] Ordered By: Chaka Frye on 11-12-2023 Monocytes (Bld) [#/Vol] 0.8 10*3/uL 0.0-0.[address] [facility] Monocytes/100 WBC Auto (Bld) Ordered By: Chaka Frye on 11-12-2023 Monocytes/100 WBC (Bld) 11.0 % . [facility] Neutrophils Auto (Bld) [#/Vo l]Ordered By: Chaka Frye on 11-12-2023 Neutrophils (Bld) [#/Vol] 3.9 10*3/uL 1.8-7.[address] [facility] Neutrophils/100 WBC Auto (Bl d)Ordered By: Chaka Frye on 11-12-2023 Neutrophils/100 WBC (Bld) 52.5 % . [facility] No Panel InformationOrdered By: Chaka Frye on 11-12-2023 Estimated GFR (CKD-EPI) > 60.0 mL/Min [facility] Creatinine Clearance (Chem 63.[address] [facility] Nucleated erythrocytes [Pres ence] in Blood by Automated countOrdered By: Chaka Frye on 11-12-2023 Nucleated RBC Auto Ql (Bld) 0.1 /100{WBC} 0-0.[address] [facility] Platelet mean volume Auto (B ld) [Entitic vol]Ordered By: Chaka Frye on 11-12-2023 Platelet mean volume (Bld) [Entitic vol] 9.1 fL 6.3-10.[address] [facility] Platelets Auto (Bld) [#/Vol] Ordered By: Chaka Frye on 11-12-2023 Platelets (Bld) [#/Vol] 155 10*3/uL 150-[address] [facility] Potassium [Moles/volume] in Serum or PlasmaOrdered By: Chaka Frye on 11-12-2023 Potassium [Moles/Vol] 4.4 mmol/L 3.5-5.1 [facility] RBC Auto (Bld) [#/Vol]Ordere d By: Chaka Frye on 11-12-2023 RBC (Bld) [#/Vol] 4.54 10*6/uL 3.60-5.00 [facility] Serum or plasma anion gap de terminationOrdered By: Chaka Frye on 11-12-2023 Anion gap [Moles/Vol] 10.4 mmol/L 6.0-15.0 [facility] Sodium [Moles/volume] in Ser um or PlasmaOrdered By: Chaka Frye on 11-12-2023 Sodium [Moles/Vol] 139 mmol/L 136-145 [facility] Urea nitrogen [Mass/volume] in Serum or PlasmaOrdered By: Chaka Frye on 11-12-2023 Urea nitrogen [Mass/Vol] 18 mg/dL 7-[address] [facility] WBC Auto (Bld) [#/Vol]Ordere d By: hCaka Frye on 11-12-2023 WBC (Bld) [#/Vol] 7.4 10*3/uL 3.8-11.6 [facility] Glucose mean value [Mass/vol ume] in Blood Estimated from glycated hemoglobinOrdered By: Jluis Campos on 11-11-2023 Average glucose Estimated from glycated hemoglobin (Bld) [Mass/Vol] 143 mg/dL [facility] Hemoglobin A1c percentageOrd ered By: Jluis Campos on 11-11-2023 HbA1c (Bld) [Mass fraction] 6.6 % High 4.3-5.[address] [facility] Comment on above: Increased risk for d iabetes: 5.7 - 6.4diabetes: >6.4glycemic control for adults with diabetes: <7.0 LACTATE AND PYRUVATEon 11-10 LACTIC ACID, PLASMA . [facility] Comment on above: Test not performed. Supernatant is required. CONTACTED YOUR FACILity on 11-05-2023 PYRUVIC ACID, BLOOD . [facility] Comment on above: Test not performed [facility] No Panel InformationOrdered By: Kirt Renae on 11-11-2023 EMG TECHNICIAN Antibody 0.2 AI 0.0-0.[address] [facility] Serum Sushma-1 extractable nucle ar antibody assay (units/volume)Ordered By: Kirt Renae on 11-11-2023 Sushma-1 extractable nuclear Ab Qn (S) <0.2 AI 0.0-0.[address] [facility] Comment on above: Performed at: [facility] [address] [id number] Director: Yuri Osullivan PhD, Phone: [phone] Serum Sjogrens syndrome-A ex tractable nuclear antibody assay (units/volume)Ordered By: Kirt Renae on 11-11-2023 Sjogrens syndrome-A extractable nuclear Ab Qn (S) <0.2 AI 0.0-0.[address] [facility] Serum Sjogrens syndrome-B ex tractable nuclear antibody assay (units/volume)Ordered By: Kirt Renae on 11-11-2023 Sjogrens syndrome-B extractable nuclear Ab Qn (S) <0.2 AI 0.0-0.[address] [facility] Serum or plasma thyroglobuli n antibody assay (units/volume)Ordered By: Kirt Renae on 11-11-2023 Thyroglobulin Ab Qn [IU]/mL 0.0-0.9 [facility] Comment on above: Thyroglobulin Antibo dy measured by DataLockerMethodologyIt should be noted that the presence of thyroglobulinantibodies may not be pathogenic nor diagnostic, especiallyat very low levels. The assay tire layer has found thatfour percent of individuals without evidence of thyroiddisease or autoimmunity will have positive TgAb levels upto 4 IU/mL.Performed at: [facility] [address] [id number] Director: Yuri Osullivan PhD, Phone: [phone] Serum or plasma thyroperoxid ase antibody assay (units/volume)Ordered By: Kirt Renae on 11-11-2023 TPO Ab Qn [IU]/mL 0-[address] [facility] Thyroxine (T4) free [Mass/vo lume] in Serum or PlasmaOrdered By: Kirt Renae on 11-11-2023 Free T4 [Mass/Vol] 0.83 ng/dL 0.61-1.12 [facility] Triiodothyronine (T3) Free [ Mass/volume] in Serum or PlasmaOrdered By: Kirt Renae on 11-11-2023 Free T3 [Mass/Vol] 2.60 pg/mL 2.50-3.90 [facility] Alanine aminotransferase [En zymatic activity/volume] in Serum or PlasmaOrdered By: Rl Villavicencio on 11-10-2023 ALT [Catalytic activity/Vol] 19 U/L 7-[address] [facility] Albumin [Mass/volume] in Ser um or Plasma by Bromocresol green (BCG) dye binding methoOrdered By: Rl Villavicencio on 11-10-2023 Albumin BCG dye [Mass/Vol] 4.2 g/dL 3.5-5.[address] [facility] Alkaline phosphatase [Enzyma tic activity/volume] in Serum or PlasmaOrdered By: Rl Villavicencio on 11-10-2023 ALP [Catalytic activity/Vol] 60 U/L 34-[address] [facility] Aspartate aminotransferase [ Enzymatic activity/volume] in Serum or PlasmaOrdered By: Rl Villavicencio on 11-10-2023 AST [Catalytic activity/Vol] 29 U/L 13-[address] [facility] Bacteria [Presence] in Urine by AutomatedOrdered By: Rl Villavicencio on 11-10-2023 Bacteria Auto Ql (U) 1+ [HPF] High None Seen [facility] Basophils Auto (Bld) [#/Vol] Ordered By: Rl Villavicencio on 11-10-2023 Basophils (Bld) [#/Vol] 0.1 10*3/uL 0.0-0.[address] [facility] Basophils/100 WBC Auto (Bld) Ordered By: Rl Villavicencio on 11-10-2023 Basophils/100 WBC (Bld) 0.9 % . [facility] Bilirubin Test strip Ql (U)O rdered By: Rl Villavicencio on 11-10-2023 Bilirubin Ql (U) Negative Negative [facility] Bilirubin.total [Mass/volume ] in Serum or PlasmaOrdered By: Rl Villavicencio on 11-10-2023 Bilirubin [Mass/Vol] 0.4 mg/dL 0.3-1.0 [facility] C reactive protein [Mass/vol ume] in Serum or PlasmaOrdered By: Kirt Renae on 11-10-2023 CRP [Mass/Vol] < 0.5 mg/dL 0.0-0.[address] [facility] Calcium [Mass/volume] in Ser um or PlasmaOrdered By: Rl Villavicencio on 11-10-2023 Calcium [Mass/Vol] 9.6 mg/dL 8.6-10.3 [facility] Carbon dioxide, total [Moles /volume] in Serum or PlasmaOrdered By: Rl Villavicencio on 11-10-2023 CO2 [Moles/Vol] 25.4 mmol/L 21.0-31.0 [facility] Chloride [Moles/volume] in S elliot or PlasmaOrdered By: Rl Villavicencio on 11-10-2023 Chloride [Moles/Vol] 105 mmol/L 98-107 [facility] Color Auto (U)Ordered By: Claudio Villavicencio on 11-10-2023 Color (U) Light-yellow Yellow [facility] Creatine kinase [Enzymatic a ctivity/volume] in Serum or PlasmaOrdered By: Rl Villavicencio on 11-10-2023 CK [Catalytic activity/Vol] 69 U/L 30-[address] [facility] Creatinine [Mass/volume] in Serum or PlasmaOrdered By: Rl Villavicencio on 11-10-2023 Creatinine [Mass/Vol] 0.93 mg/dL 0.60-1.20 [facility] Eosinophils Auto (Bld) [#/Vo l]Ordered By: Rl Villavicencio on 11-10-2023 Eosinophils (Bld) [#/Vol] 0.3 10*3/uL 0.0-0.[address] [facility] Eosinophils/100 WBC Auto (Bl d)Ordered By: Rl Villavicencio on 11-10-2023 Eosinophils/100 WBC (Bld) 3.7 % . [facility] Epithelial cells.squamous [# /area] in Urine sediment by Automated countOrdered By: Rl Villavicencio on 11-10-2023 Epithelial cells.squamous Auto (Urine sed) [#/Area] 5-9 [HPF] High 0-[address] [facility] Erythrocyte distribution wid th Auto (RBC) [Ratio]Ordered By: Rl Villavicencio on 11-10-2023 Erythrocyte distribution width (RBC) [Ratio] 13.5 % 11.9-15.[address] [facility] Erythrocyte sedimentation ra te by Photometric methodOrdered By: Kirt Renae on 11-10-2023 ESR Photometric method (Bld) [Velocity] 40 mm/hr High 0-[address] [facility] Erythrocytes [#/area] in Uri ne sediment by Automated countOrdered By: Rl Villavicencio on 11-10-2023 RBC Auto (Urine sed) [#/Area] 5-9 [HPF] High 0-[address] [facility] Folate [Mass/volume] in Seru m or PlasmaOrdered By: Kirt Renae on 11-10-2023 Folate [Mass/Vol] 19.6 ng/mL >5.9 [facility] Comment on above: Folate reference ran ge: >5.9 ng/mlThe WHO technical consultation on folate and vitamin [id number] has determined that folate concentrations lessthan 4 ng/ml are considered deficient. Globulin Calc (S) [Mass/Vol] Ordered By: Rl Villavicencio on 11-10-2023 Globulin (S) [Mass/Vol] 2.9 g/dL [facility] Glucose [Mass/volume] in Ser um or PlasmaOrdered By: Rl Villavicencio on 11-10-2023 Glucose [Mass/Vol] 95 mg/dL 70-100 [facility] Comment on above: ADA recommended refe rence rangeRandom Glucose Reference Range is dependent on time and content of last meal. Glucose of more than 200 mg/dL in a nonstressed, ambulatory subject supports the diagnosis of Diabetes Mellitus. Glucose [Mass/volume] in Uri ne by Test stripOrdered By: Rl Villavicencio on 11-10-2023 Glucose Test strip (U) [Mass/Vol] 1000 mg/dL High Normal [facility] Hematocrit Auto (Bld) [Volum e fraction]Ordered By: Rl Villavicencio on 11-10-2023 Hematocrit (Bld) [Volume fraction] 44.9 % 34.0-46.[address] [facility] Hemoglobin Test strip Ql (U) Ordered By: Rl Villavicencio on 11-10-2023 Hemoglobin Ql (U) Negative Negative [facility] Hemoglobin [Mass/volume] in BloodOrdered By: Rl Villavicencio on 11-10-2023 Hemoglobin (Bld) [Mass/Vol] 15.0 g/dL 11.8-15.[address] [facility] Hyaline casts [#/area] in Ur ine sediment by Automated countOrdered By: Rl Villavicencio on 11-10-2023 Hyaline casts Auto (Urine sed) [#/Area] None [LPF] 0-[address] [facility] Ketones Test strip Ql (U)Ord ered By: Rl Villavicencio on 11-10-2023 Ketones Ql (U) Negative Negative [facility] Leukocyte clumps [Presence] in Urine by AutomatedOrdered By: Rl Villavicencio on 11-10-2023 Leukocyte clumps Auto Ql (U) Occasional [LPF] High None Seen [facility] Leukocyte esterase [Presence ] in Urine by Test stripOrdered By: Rl Villavicencio on 11-10-2023 Leukocyte esterase Test strip Ql (U) 4+ High Negative [facility] Leukocytes [#/area] in Urine sediment by Automated countOrdered By: Rl Villavicencio on 11-10-2023 WBC Auto (Urine sed) [#/Area] 20-49 [HPF] High 0-[address] [facility] Leukocytes [#/volume] correc deepika for nucleated erythrocytes in Blood by Automated counOrdered By: Rl Villavicencio on 11-10-2023 WBC corrected for nucl RBC Auto (Bld) [#/Vol] 8.5 10*3/uL 3.8-11.[address] [facility] Lymphocytes Auto (Bld) [#/Vo l]Ordered By: Rl Villavicencio on 11-10-2023 Lymphocytes (Bld) [#/Vol] 2.2 10*3/uL 1.00-4.[address] [facility] Lymphocytes/100 WBC Auto (Bl d)Ordered By: Rl Villavicencio on 11-10-2023 Lymphocytes/100 WBC (Bld) 26.0 % . [facility] MCH Auto (RBC) [Entitic mass ]Ordered By: Rl Villavicencio on 11-10-2023 MCH (RBC) [Entitic mass] 32.6 pg 24.7-34.[address] [facility] MCHC Auto (RBC) [Mass/Vol]Or dered By: Rl Villavicencio on 11-10-2023 MCHC (RBC) [Mass/Vol] 33.3 g/dL 32.0-35.0 [facility] MCV Auto (RBC) [Entitic vol] Ordered By: Rl Villavicencio on 11-10-2023 MCV (RBC) [Entitic vol] 97.8 fL 80-100 [facility] Magnesium [Mass/volume] in S elliot or PlasmaOrdered By: Rl Villavicencio on 11-10-2023 Magnesium [Mass/Vol] 1.7 mg/dL Low 1.9-2.7 [facility] Monocyte distribution width [Entitic volume] in Blood by AutomatedOrdered By: Rl Villavicencio on 11-10-2023 Monocyte distribution width Auto (Bld) [Entitic vol] 19.74 % 0.00-20.[address] [facility] Monocytes Auto (Bld) [#/Vol] Ordered By: Rl Villavicencio on 11-10-2023 Monocytes (Bld) [#/Vol] 0.7 10*3/uL 0.0-0.[address] [facility] Monocytes/100 WBC Auto (Bld) Ordered By: Rl Villavicencio on 11-10-2023 Monocytes/100 WBC (Bld) 8.2 % . [facility] Neutrophils Auto (Bld) [#/Vo l]Ordered By: Rl iVllavicencio on 11-10-2023 Neutrophils (Bld) [#/Vol] 5.2 10*3/uL 1.8-7.[address] [facility] Neutrophils/100 WBC Auto (Bl d)Ordered By: Rl Villavicencio on 11-10-2023 Neutrophils/100 WBC (Bld) 61.2 % . [facility] Nitrite Test strip Ql (U)Ord ered By: Rl Villavicencio on 11-10-2023 Nitrite Ql (U) Negative Negative [facility] No Panel InformationOrdered By: Krit Renae on 11-10-2023 Bedside Glucose Comment Glu2: cleaned meter [facility] No Panel InformationOrdered By: Rl Villavicencio on 11-10-2023 Estimated GFR (CKD-EPI) > 60.0 mL/Min [facility] Creatinine Clearance (Chem 66.[address] [facility] Nucleated erythrocytes [Pres ence] in Blood by Automated countOrdered By: Rl Villavicencio on 11-10-2023 Nucleated RBC Auto Ql (Bld) 0.1 /100{WBC} 0-0.[address] [facility] Platelet mean volume Auto (B ld) [Entitic vol]Ordered By: Rl Villavicencio on 11-10-2023 Platelet mean volume (Bld) [Entitic vol] 8.7 fL 6.3-10.[address] [facility] Platelets Auto (Bld) [#/Vol] Ordered By: Rl Villavicencio on 11-10-2023 Platelets (Bld) [#/Vol] 149 10*3/uL Low 150-[address] [facility] Potassium [Moles/volume] in Serum or PlasmaOrdered By: Rl Villavicencio on 11-10-2023 Potassium [Moles/Vol] 4.6 mmol/L 3.5-5.1 [facility] Comment on above: Hemolysis is present at a level that could interfere with the result.Contact lab if redraw is required Protein Test strip (U) [Mass /Vol]Ordered By: Rl Villavicencio on 11-10-2023 Protein (U) [Mass/Vol] Negative Negative [facility] Protein [Mass/volume] in Ser um or PlasmaOrdered By: Rl Villavicencio on 11-10-2023 Protein [Mass/Vol] 7.1 g/dL 6.4-8.9 [facility] RBC Auto (Bld) [#/Vol]Ordere d By: Rl Villavicencio on 11-10-2023 RBC (Bld) [#/Vol] 4.59 10*6/uL 3.60-5.00 [facility] Serum or plasma albumin/glob ulin mass ratioOrdered By: Rl Villavicencio on 11-10-2023 Albumin/Globulin [Mass ratio] 1.4 {ratio} [facility] Serum or plasma anion gap de terminationOrdered By: Rl Villavicencio on 11-10-2023 Anion gap [Moles/Vol] 11.2 mmol/L 6.0-15.0 [facility] Sodium [Moles/volume] in Ser um or PlasmaOrdered By: Rl Villavicencio on 11-10-2023 Sodium [Moles/Vol] 137 mmol/L 136-145 [facility] Specific gravity Test strip (U) [Rel density]Ordered By: Rl Villavicencio on 11-10-2023 Specific gravity (U) [Rel density] 1.007 1.001-1.[address] [facility] Thyrotropin [Units/volume] i n Serum or PlasmaOrdered By: Jluis Campos on 11-10-2023 TSH Qn 5.73 m[IU]/L High 0.45-5.[address] [facility] Urea nitrogen [Mass/volume] in Serum or PlasmaOrdered By: Rl Villavicencio on 11-10-2023 Urea nitrogen [Mass/Vol] 14 mg/dL 7-[address] [facility] Urine appearanceOrdered By: Rl Villavicencio on 11-10-2023 Appearance (U) Clear Clear [facility] Urine culture routineOrdered By: Rl Villavicencio on 11-10-2023 Bacteria identified Cx Nom (U) [address] [facility] Urobilinogen Test strip (U) [Mass/Vol]Ordered By: Rl Villavicencio on 11-10-2023 Urobilinogen (U) [Mass/Vol] Normal mg/dL Normal [facility] Vitamin B12 ser/plasOrdered By: Kirt Renae on 11-10-2023 Cobalamin (Vitamin B12) [Mass/Vol] 306 pg/mL 180-[address] [facility] Vitamin D+Metabolites [Mass/ volume] in Serum or PlasmaOrdered By: Jluis Campos on 11-10-2023 Vitamin D+Metabolites [Mass/Vol] 61.3 ng/mL 30-[address] [facility] Comment on above: Hemolysis is [...] 11-10-2023 WBC (Bld) [#/Vol] 8.5 10*3/uL 3.8-11.6 [facility] pH Test strip (U)Ordered By: Rl Villavicencio on 11-10-2023 pH (U) 6.0 [pH] 5.0-9.[address] [facility] Glucose Glucometer (BldC) [M ass/Vol]Ordered By: OSORIO WHITE on 11-09-2023 Glucose [Mass/Vol] 139 mg/dL [facility] Comment on above: Random Glucose Refer ence Range is dependent on time and content of last meal. Glucose of more than 200 mg/dL in a nonstressed, ambulatory subject supports the diagnosis of Diabetes Mellitus. Carbon dioxide, total [Moles /volume] in Serum or PlasmaOrdered By: Jonas Ch on 11-05-2023 CO2 [Moles/Vol] 28.6 mmol/L 21.0-31.0 [facility] Chloride [Moles/volume] in S elliot or PlasmaOrdered By: Jonas Ch on 11-05-2023 Chloride [Moles/Vol] 104 mmol/L 98-107 [facility] Potassium [Moles/volume] in Serum or PlasmaOrdered By: Jonas Ch on 11-05-2023 Potassium [Moles/Vol] 4.6 mmol/L 3.5-5.1 [facility] Serum or plasma anion gap de terminationOrdered By: Jonas Ch on 11-05-2023 Anion gap [Moles/Vol] 11.0 mmol/L 6.0-15.0 [facility] Sodium [Moles/volume] in Ser um or PlasmaOrdered By: Jonas Ch on 11-05-2023 Sodium [Moles/Vol] 139 mmol/L 136-145 [facility] Alanine aminotransferase [En zymatic activity/volume] in Serum or PlasmaOrdered By: Oz Kincaid on 10-30-2023 ALT [Catalytic activity/Vol] 23 U/L 7-[address] [facility] Albumin [Mass/volume] in Ser um or PlasmaOrdered By: Oz Kincaid on 10-30-2023 Albumin [Mass/Vol] 4.2 g/dL 2.9-4.4 [facility] Albumin/Protein.total in 24 hour Urine by ElectrophoresisOrdered By: Oz Kincaid on 10-30-2023 Albumin Elph (24H U) [Mass fraction] 35.7 % . [facility] Alpha tocopherol [Mass/volum e] in Serum or PlasmaOrdered By: Oz Kincaid on 10-30-2023 Alpha tocopherol [Mass/Vol] 8.7 mg/L Low 9.0-29.[address] [facility] Comment on above: This test was devryan cristina and its performance characteristicsdetermined by [employer]. It has not been cleared orapproved by the Food and Drug Administration. Aspartate aminotransferase [ Enzymatic activity/volume] in Serum or PlasmaOrdered By: Oz Kincaid on 10-30-2023 AST [Catalytic activity/Vol] 26 U/L 13-[address] [facility] Borrelia burgdorferi Ab [Int erpretation] in SerumOrdered By: Oz Kincaid on 10-30-2023 B. burgdorferi Ab (S) [Interp] N/A [facility] Borrelia burgdorferi IgG Ab [Presence] in Serum or Plasma by ImmunoassayOrdered By: Oz Kincaid on 10-30-2023 B. burgdorferi IgG IA Ql N/A [facility] Borrelia burgdorferi IgG+IgM Ab [Presence] in Serum by ImmunoassayOrdered By: Oz Kincaid on 10-30-2023 B. burgdorferi IgG+IgM IA Ql (S) Negative Negative [facility] Comment on above: Lyme antibodies not detected. Reflex testing is notindicated.No laboratory evidence of infection with B. burgdorferi(Lyme disease). Negative results may occur in patientsrecently infected (less than or equal to 14 days) with B.burgdorferi. If recent infection is suspected, repeattesting on a new sample collected in 7 to 14 days isrecommended.Performed at: [address] [id number] Director: Yuri Osullivan PhD, Phone: [phone] Lyme antibodies not detected. Reflex testing is notindicated.No laboratory evidence of infection with B. burgdorferi(Lyme disease). Negative results may occur in patientsrecently infected (less than or equal to 14 days) with B.burgdorferi. If recent infection is suspected, repeattesting on a new sample collected in 7 to 14 days isrecommended.Performed at: [employer] [id number] Director: Yuri Osullivan PhD, Phone: [phone] Lyme antibodies not detected. Reflex testing is [...] in 7 to 14 days isrecommended.Performed at: [employer] [id number] Director: Yuri Osullivan PhD, Phone: [phone] Borrelia burgdorferi IgM Ab [Presence] in Serum or Plasma by ImmunoassayOrdered By: Oz Kincaid on 10-30-2023 B. burgdorferi IgM IA Ql N/A [facility] C reactive protein [Mass/vol ume] in Serum or Plasma by High sensitivity methodOrdered By: Oz Kincaid on 10-30-2023 CRP High sensitivity method [Mass/Vol] 2.2 mg/L High 0.0-0.[address] [facility] Comment on above: Cardiovascular Risk [...] on 10-30-2023 CT biopsy 5.0 U/L 3.3-10.[address] [facility] Comment on above: Performed at: [address] [id number] Director: Yuri Osullivan PhD, Phone: [phone] Creatine kinase [Enzymatic a ctivity/volume] in Serum or PlasmaOrdered By: Oz Kincaid on 10-30-2023 CK [Catalytic activity/Vol] 46 U/L 30-[address] [facility] Erythrocyte sedimentation ra te by Photometric methodOrdered By: Oz Kincaid on 10-30-2023 ESR Photometric method (Bld) [Velocity] 26 mm/hr 0-[address] [facility] Folate [Mass/volume] in Seru m or PlasmaOrdered By: Oz iKncaid on 10-30-2023 Folate [Mass/Vol] 34.0 ng/mL >5.9 [facility] Comment on above: Folate reference ran ge: >5.9 ng/mlThe WHO technical consultation on folate and vitamin [id number] has determined that folate concentrations lessthan 4 ng/ml are considered deficient. Gamma globulin/Protein.total in 24 hour Urine by ElectrophoresisOrdered By: Oz Kincaid on 10-30-2023 Gamma globulin Elph (24H U) [Mass fraction] 23.2 % . [facility] Gamma-tocopherol measurement (mass/volume)Ordered By: Oz Kincaid on 10-30-2023 Gamma tocopherol [Mass/Vol] 0.7 mg/L 0.5-4.[address] [facility] Comment on above: This test was devryan cristina and its performance characteristicsdetermined by [employer]. It has not been cleared orapproved by the Food and Drug Administration.Reference intervals for alpha and gamma-tocopheroldetermined from National Health and Nutrition ExaminationSurvey, 5673-6504. Individuals with alpha-tocopherol levelsless than 5.0 mg/L are considered vitamin E deficient. Glucose mean value [Mass/vol ume] in Blood Estimated from glycated hemoglobinOrdered By: Oz Kincaid on 10-30-2023 Average glucose Estimated from glycated hemoglobin (Bld) [Mass/Vol] 143 mg/dL [facility] Hemoglobin A1c percentageOrd ered By: Oz Kincaid on 10-30-2023 HbA1c (Bld) [Mass fraction] 6.6 % High 4.3-5.[address] [facility] Comment on above: Increased risk for d iabetes: 5.7 - 6.4diabetes: >6.4glycemic control for adults with diabetes: <7.0 IgA [Mass/volume] in Serum o r PlasmaOrdered By: Oz Kincaid on 10-30-2023 IgA [Mass/Vol] 265 mg/dL 87-[address] [facility] IgG [Mass/volume] in Serum o r PlasmaOrdered By: Oz Kincaid on 10-30-2023 IgG [Mass/Vol] 1034 mg/dL 586-[address] [facility] IgM [Mass/volume] in Serum o r PlasmaOrdered By: Oz Kincaid on 10-30-2023 IgM [Mass/Vol] 48 mg/dL 26-[address] [facility] Comment on above: Performed at: [facility] [address] [id number] Director: Yuri Osullivan PhD, Phone: [phone] Immunofixation for UrineOrde red By: Oz Kincaid on 10-30-2023 Interpretation Immunofixation (U) [Interp] See comment . [facility] Comment on above: No monoclonality det ected.Performed at: [facility] [address] [id number] Director: Yuri Osullivan PhD, Phone: [phone] No Panel InformationOrdered By: Oz Kincaid on 10-30-2023 Anti-Nuclear Antibody Comment 2 See comment . [facility] Comment on above: Pattern Potential Di sease Association Homogeneous Systemic Lupus Erythematosus, Drug Induced Systemic Lupus Erythematosus, Chronic Autoimmune hepatitis, Juvenile Idiopathic Arthritis Speckled Sjogren Syndrome, Systemic Lupus Erythematosus, Subacute Cutaneous Lupus, Lupus, Congenital Heart Block, Mixed Connective Tissue Disease, Scleroderma-diffuse, Scleroderma-Autoimmune Myositis Overlap Syndrome, Systemic Lupus Xdqlagyrsrwdp-Fkzrmjvnkvk-Fsnwkrevhe Myositis Overlap Syndrome, Systemic Autoimmune Rheumatic Disease, [...] Scleroderma, Antiphospholipid Syndrome Performed at: - [facility] [address] [id number] Director: Christine Pham MD, Phone: [phone] at: - [facility] [address] [place], [place] [id number] Director: Yuri Osullivan PhD, Phone: [phone] Pattern Potential Di sease Association Homogeneous Systemic Lupus Erythematosus, Drug Induced Systemic Lupus Erythematosus, Chronic Autoimmune hepatitis, Juvenile Idiopathic Arthritis Speckled Sjogren Syndrome, Systemic Lupus Erythematosus, Subacute Cutaneous Lupus, Lupus, Congenital Heart Block, Mixed Connective Tissue Disease, Scleroderma-diffuse, Scleroderma-Autoimmune Myositis Overlap Syndrome, Systemic Lupus Wxbhnpwbjumsg-Sxfjkdnmuhz-Dordndvhsz Myositis Overlap Syndrome, Systemic Autoimmune Rheumatic Disease, [...] Cytopenias, Linear Scleroderma, Antiphospholipid Syndrome Performed at: [employer] [id number] Director: Christine Pham MD, Phone: [phone] at: [facility] Center[facility] [place], [place] [id number] Director: Yuri Osullivan PhD, Phone: [phone] Pattern Potential Disease Association Homogeneous Systemic Lupus Erythematosus, Drug Induced Systemic Lupus Erythematosus, Chronic Autoimmune hepatitis, Juvenile Idiopathic Arthritis Speckled Sjogren Syndrome, Systemic Lupus Erythematosus, Subacute Cutaneous Lupus, Lupus, Congenital Heart Block, Mixed Connective Tissue Disease, Scleroderma-diffuse, Scleroderma-Autoimmune Myositis Overlap Syndrome, Systemic Lupus Biqvwkfzerzox-Sfymztxcdfp-Chbnfukebw Myositis Overlap Syndrome, Systemic Autoimmune Rheumatic Disease, [...] Scleroderma, Antiphospholipid Syndrome Performed at: [facility] [place], [place] [id number] Director: Yuri Osullivan PhD, Phone: [phone] at: [address] [id number] Director: Christine Pham MD, Phone: [phone] --- 11/06/23 1236 ---BEATRICE ELLIS Note 1 previously reported as: Pattern Potential Disease Association Homogeneous Systemic Lupus Erythematosus, Drug Induced Systemic Lupus Erythematosus, Chronic Autoimmune hepatitis, Juvenile Idiopathic Arthritis Speckled Sjogren Syndrome, Systemic Lupus Erythematosus, Subacute Cutaneous Lupus, Lupus, Congenital Heart Block, Mixed Connective Tissue Disease, Scleroderma-diffuse, Scleroderma-Autoimmune Myositis Overlap Syndrome, Systemic Lupus Rkqyxdjzgfdnf-Wqjiqjnvben-Djgqyukozm Myositis Overlap Syndrome, Systemic Autoimmune Rheumatic Disease, [...] (more content not included)... Lactate/Pyruvate Interpretation N/A [facility] Plasma Lactic Acid, Venous See comment . [facility] Comment on above: Test not performed. Supernatant is required.CONTACTED YOUR FACILity on 11-05-2023 Protein Electrophoresis M-Meir Not observed g/dL Not Observed [facility] Protein Electrophoresis Note See comment . [facility] Comment on above: Protein electrophore sis scan will follow via computer,mail, or foot cutter delivery. Pyruvic Acid See comment . [facility] Comment on above: Test not performed Serum Immunofixation See comment . [facility] Comment on above: No monoclonality det ected. Urine Random Prot Electrophor Note See comment . [facility] Comment on above: Protein electrophore sis scan will follow via computer,mail, or foot cutter delivery.Performed at: [facility] [employer] [id number] Director: Yuri Osullivan PhD, Phone: [phone] Whole Blood Zinc 909 ug/dL High 440-860 [facility] Comment on above: This test was develo ped and its performance characteristicsdetermined by [employer]. It has not been cleared orapproved by the Food and Drug Administration.Performed at: [facility] [employer] [id number] Director: Christine Pham MD, Phone: [phone] This test was develo ped and its performance characteristicsdetermined by [employer]. It has not been cleared orapproved by the Food and Drug Administration.Performed at: [facility] [employer] [id number] Director: Christine Pham MD, Phone: [phone] This test was developed and its performance characteristicsdetermined by [employer]. It has not been cleared orapproved by the Food and Drug Administration. --- 11/06/23 1236 ---Zinc,WB previously reported as: 909 H ug/dLThis test was developed and its performance characteristicsdetermined by [employer]. It has not been cleared orapproved by the Food and Drug Administration.Performed at: [facility] [employer] [id number] Director: Christine Pham MD, Phone: [phone] Protein [Mass/volume] in Ser um or PlasmaOrdered By: Oz Kincaid on 10-30-2023 Protein [Mass/Vol] 7.7 g/dL 6.0-8.5 [facility] Protein [Mass/volume] in Uri neOrdered By: Oz Kincaid on 10-30-2023 Protein (U) [Mass/Vol] 28.8 mg/dL Not Estab. Fi [facility] Protein.monoclonal/Protein.t otal in 24 hour Urine by ElectrophoresisOrdered By: Oz Kincaid on 10-30-2023 Protein.monoclonal Elph (24H U) [Mass fraction] Not observed % Not Observed [facility] Reagin Ab [Presence] in Seru m by RPROrdered By: Oz Kincaid on 10-30-2023 Reagin Ab RPR Ql (S) Non-Reactive Non Reactive [facility] Comment on above: Performed at: [employer] [address] [id number] Director: Yuri Osullivan PhD, Phone: [phone] Serum West Nile virus IgG an tibody detection by immunoassayOrdered By: Oz Kincaid on 10-30-2023 West Nile virus IgG IA Ql (S) Negative Negative [facility] Serum West Nile virus IgM an tibody detection by immunoassayOrdered By: Oz Kincaid on 10-30-2023 West Nile virus IgM IA Ql (S) Negative Negative [facility] Comment on above: Performed at: [employer] [address] [id number] Director: Christine Pham MD, Phone: [phone] Serum globulin measurement ( mass/volume)Ordered By: Oz Kincaid on 10-30-2023 Globulin (S) [Mass/Vol] 3.5 g/dL 2.2-3.9 [facility] Serum homogeneous pattern an tinuclear antibody (BEATRICE) titerOrdered By: Oz Kincaid on 10-30-2023 Homogenous nuclear Ab pattern (S) [Titer] N/A [facility] Serum nuclear antibody titer Ordered By: Oz Kincaid on 10-30-2023 Nuclear Ab (S) [Titer] Positive Abnormal . [facility] Comment on above: Negative <1:80 Borde rline 1:80 Positive >1:80 Serum or plasma albumin/glob ulin mass ratioOrdered By: Oz Kincaid on 10-30-2023 Albumin/Globulin [Mass ratio] 1.2 {ratio} 0.7-1.[address] [facility] Serum or plasma alpha 1 glob ulin measurement by electrophoresis (mass/volume)Ordered By: Oz Kincaid on 10-30-2023 Alpha 1 globulin Elph [Mass/Vol] 0.3 g/dL 0.0-0.[address] [facility] Serum or plasma alpha 2 glob ulin measurement by electrophoresis (mass/volume)Ordered By: Oz Kincaid on 10-30-2023 Alpha 2 globulin Elph [Mass/Vol] 1.0 g/dL 0.4-1.[address] [facility] Serum or plasma beta globuli n measurement by electrophoresis (mass/volume)Ordered By: Oz Kincaid on 10-30-2023 Beta globulin Elph [Mass/Vol] 1.1 g/dL 0.7-1.[address] [facility] Serum or plasma ceruloplasmi n measurement (mass/volume)Ordered By: Oz Kincaid on 10-30-2023 Ceruloplasmin [Mass/Vol] 30.1 mg/dL 19.0-39.[address] [facility] Comment on above: Performed at: [facility] [id number] Director: Yuri Osullivan PhD, Phone: [phone] Serum or plasma gamma globul in measurement by electrophoresis (mass/volume)Ordered By: Oz Kincaid on 10-30-2023 Gamma globulin Elph [Mass/Vol] 1.1 g/dL 0.4-1.[address] [facility] Serum or plasma homocysteine measurement (moles/volume)Ordered By: Oz Kincaid on 10-30-2023 Homocysteine [Moles/Vol] 20.7 umol/L High 0.0-17.[address] [facility] Comment on above: Performed at: [facility] [id number] Director: Yuri Osullivan PhD, Phone: [phone] Serum or plasma lutropin coleman surement (units/volume)Ordered By: Oz Kincaid on 10-30-2023 Lutropin Qn 60.4 m[IU]/mL High 7.7-58.[address] [facility] Comment on above: Adult Female Range F ollicular phase 2.4 - 12.6 Ovulation phase 14.0 - 95.6 Luteal phase 1.0 - 11.4 Postmenopausal 7.7 - 58.5 Serum or plasma methylmalona te measurement (moles/volume)Ordered By: Oz Kincaid on 10-30-2023 Methylmalonate [Moles/Vol] 247 nmol/L 0-[address] [facility] Comment on above: This test was develo ped and its performance characteristicsdetermined by [employer]. It has not been cleared orapproved by the Food and Drug Administration.Performed at: [address] [id number] Director: Christine Pham MD, Phone: [phone] This test was develo ped and its performance characteristicsdetermined by [employer]. It has not been cleared orapproved by the Food and Drug Administration.Performed at: [address] [id number] Director: Christine Pham MD, Phone: [phone] This test was developed and its performance characteristicsdetermined by [employer]. It has not been cleared orapproved by the Food and Drug Administration. --- 11/06/23 1236 ---Methylmal Acid previously reported as: 247 nmol/LThis test was developed and its performance characteristicsdetermined by [employer]. It has not been cleared orapproved by the Food and Drug Administration.Performed at: [address] [id number] Director: Christine Pham MD, Phone: [phone] Serum or plasma pyridoxine m easurement (mass/volume)Ordered By: Oz Kincaid on 10-30-2023 Pyridoxine [Mass/Vol] 8.8 ug/L 3.4-65.2 [facility] Comment on above: This test was develo ped and its performance characteristicsdetermined by [employer]. It has not been cleared orapproved by the Food and Drug Administration. Deficiency: <3.4 Marginal: 3.4 - 5.1 Adequate: >5.1Performed at: [place] [address] [place], [place] [id number] Director: Christine Pham MD, Phone: [phone] Serum or plasma rheumatoid f actor measurement (units/volume)Ordered By: Oz Kincaid on 10-30-2023 Rheumatoid factor Qn [IU]/mL <14.0 [facility] Serum speckled pattern antin uclear antibody (BEATRICE) titerOrdered By: Oz Kincaid on 10-30-2023 Speckled nuclear Ab pattern (S) [Titer] 1:[address] [facility] Comment on above: ICAP nomenclature: A C-2,4,5,29 Thyrotropin [Units/volume] i n Serum or PlasmaOrdered By: Oz Kincaid on 10-30-2023 TSH Qn 6.38 m[IU]/L High 0.45-5.[address] [facility] Thyroxine (T4) free [Mass/vo lume] in Serum or PlasmaOrdered By: Oz Kincaid on 10-30-2023 Free T4 [Mass/Vol] 0.89 ng/dL 0.61-1.12 [facility] Urine alpha 1 globulin/total protein by electrophoresisOrdered By: Oz Kincaid on 10-30-2023 Alpha 1 globulin Elph (U) [Mass fraction] 0.4 % . [facility] Urine alpha 2 globulin/total protein ratio by electrophoresisOrdered By: Oz Kincaid on 10-30-2023 Alpha 2 globulin Elph (U) [Mass fraction] 8.9 % . [facility] Urine beta globulin measurem ent by electrophoresis (mass/volume)Ordered By: Oz Kincaid on 10-30-2023 Beta globulin Elph (U) [Mass/Vol] 31.7 % . [facility] Vitamin B12 ser/plasOrdered By: Oz Kincaid on 10-30-2023 Cobalamin (Vitamin B12) [Mass/Vol] 300 pg/mL 180-[address] [facility] Glucose Glucometer (BldC) [M ass/Vol]Ordered By: Elva Florian on 09-14-2023 Glucose [Mass/Vol] 134 mg/dL [facility] Comment on above: Random Glucose Refer ence Range is dependent on time and content of last meal. Glucose of more than 200 mg/dL in a nonstressed, ambulatory subject supports the diagnosis of Diabetes Mellitus. No Panel InformationOrdered By: Elva Florian on 09-14-2023 Bedside Glucose Comment Glu2: cleaned meter [facility] Cholesterol [Mass/volume] in Serum or PlasmaOrdered By: Elva Florian on 09-13-2023 Cholesterol [Mass/Vol] 125 mg/dL Low 140-200 [facility] Comment on above: Chol less than 200 m g/dl low riskChol 201-239 mg/dl borderline riskChol 240 mg/dl and greater high risk Cholesterol in LDL Calc [Mas s/Vol]Ordered By: Elva Florian on 09-13-2023 Cholesterol in LDL [Mass/Vol] 59 mg/dL 0-[address] [facility] Comment on above: LDL ATP III CLASSIFI CATIONLDL less than 100 mg/dL OptimalLDL 100-129 mg/dL Near or above optimalLDL 130-159 mg/dL Borderline highLDL 160-189 mg/dL HighLDL greater than 189 mg/dL Very high Cholesterol in VLDL Calc [Ma ss/Vol]Ordered By: Elva Florian on 09-13-2023 Cholesterol in VLDL [Mass/Vol] 39 mg/dL [facility] Magnesium [Mass/volume] in S elliot or PlasmaOrdered By: Elva Florian on 09-13-2023 Magnesium [Mass/Vol] 1.6 mg/dL Low 1.9-2.7 [facility] Serum or plasma high density lipoprotein (HDL) cholesterol measurementOrdered By: Elva Florian on 09-13-2023 Cholesterol in HDL [Mass/Vol] 26 mg/dL 23-[address] [facility] Comment on above: HDL CHOL ATP-III CLA SSIFICATION Cardiovascular RiskHDL > or equal to 60 mg/dL LOWHDL < 40 mg/dL HIGH Serum or plasma total choles terol/high density lipoprotein (HDL) cholesterol mass ratOrdered By: Elva Florian on 09-13-2023 Cholesterol.total/Monica sterol in HDL [Mass ratio] 4.8 {ratio} <5.[address] [facility] Thyrotropin [Units/volume] i n Serum or PlasmaOrdered By: Elva Florian on 09-13-2023 TSH Qn 2.48 m[IU]/L 0.45-5.[address] [facility] Triglyceride [Mass/volume] i n Serum or PlasmaOrdered By: Elva Florian on 09-13-2023 Triglyceride [Mass/Vol] 198 mg/dL High 0-149 [facility] Comment on above: TRIG ATP III [...] aPTT Coag (PPP) [Time] 29.3 s 25.1-36.5 [facility] Comment on above: A hematocrit value g reater than 55% may lead to inaccurate results in coagulation testing. Patients having hematocrit values >55% require a special collection tube for coagulation studies. Please contact the laboratory at [phone] for redraw instructions. Basophils Auto (Bld) [#/Vol] Ordered By: Edgar Valenzuela on 09-12-2023 Basophils (Bld) [#/Vol] 0.1 10*3/uL 0.0-0.[address] [facility] Basophils/100 WBC Auto (Bld) Ordered By: Edgar Valenzuela on 09-12-2023 Basophils/100 WBC (Bld) 0.9 % . [facility] Calcium [Mass/volume] in Ser um or PlasmaOrdered By: Edgar Valenzuela on 09-12-2023 Calcium [Mass/Vol] 10.5 mg/dL High 8.6-10.3 [facility] Carbon dioxide, total [Moles /volume] in Serum or PlasmaOrdered By: Edgar Valenzuela on 09-12-2023 CO2 [Moles/Vol] 25.0 mmol/L 21.0-31.0 [facility] Chloride [Moles/volume] in S elliot or PlasmaOrdered By: Edgar Valenzuela on 09-12-2023 Chloride [Moles/Vol] 102 mmol/L 98-107 [facility] Creatine kinase [Enzymatic a ctivity/volume] in Serum or PlasmaOrdered By: Edgar Valenzuela on 09-12-2023 CK [Catalytic activity/Vol] 45 U/L 30-[address] [facility] Creatinine [Mass/volume] in Serum or PlasmaOrdered By: Edgar Valenzuela on 09-12-2023 Creatinine [Mass/Vol] 0.84 mg/dL 0.60-1.20 [facility] Eosinophils Auto (Bld) [#/Vo l]Ordered By: Edgar Valenzuela on 09-12-2023 Eosinophils (Bld) [#/Vol] 0.2 10*3/uL 0.0-0.[address] [facility] Eosinophils/100 WBC Auto (Bl d)Ordered By: Edgar Valenzuela on 09-12-2023 Eosinophils/100 WBC (Bld) 1.7 % . [facility] Erythrocyte distribution wid th Auto (RBC) [Ratio]Ordered By: Edgar Valenzuela on 09-12-2023 Erythrocyte distribution width (RBC) [Ratio] 12.7 % 11.9-15.[address] [facility] Glucose [Mass/volume] in Ser um or PlasmaOrdered By: Edgar Valenzuela on 09-12-2023 Glucose [Mass/Vol] 150 mg/dL High 70-100 [facility] Comment on above: ADA recommended refe rence rangeRandom Glucose Reference Range is dependent on time and content of last meal. Glucose of more than 200 mg/dL in a nonstressed, ambulatory subject supports the diagnosis of Diabetes Mellitus. HbA1c HPLC (Bld) [Mass fract ion]on 09-12-2023 HbA1c (Bld) [Mass fraction] 6.6 % [facility] Hematocrit Auto (Bld) [Volum e fraction]Ordered By: Edgar Valenzuela on 09-12-2023 Hematocrit (Bld) [Volume fraction] 49.3 % High 34.0-46.[address] [facility] Hemoglobin [Mass/volume] in BloodOrdered By: Edgar Valenzuela on 09-12-2023 Hemoglobin (Bld) [Mass/Vol] 16.9 g/dL High 11.8-15.[address] [facility] INR in Platelet poor plasma by Coagulation assayOrdered By: Edgar Valenzuela on 09-12-2023 INR Coag (PPP) [Relative time] 1.1 {INR} [facility] Comment on above: INR Therapeutic [...] RBC Auto (Bld) [#/Vol] 9.8 10*3/uL 3.8-11.[address] [facility] Lymphocytes Auto (Bld) [#/Vo l]Ordered By: Edgar Valenzuela on 09-12-2023 Lymphocytes (Bld) [#/Vol] 2.0 10*3/uL 1.00-4.[address] [facility] Lymphocytes/100 WBC Auto (Bl d)Ordered By: Edgar Valenzuela on 09-12-2023 Lymphocytes/100 WBC (Bld) 20.2 % . [facility] MCH Auto (RBC) [Entitic mass ]Ordered By: Edgar Valenzuela on 09-12-2023 MCH (RBC) [Entitic mass] 32.7 pg 24.7-34.[address] [facility] MCHC Auto (RBC) [Mass/Vol]Or dered By: Edgar Valenzuela on 09-12-2023 MCHC (RBC) [Mass/Vol] 34.2 g/dL 32.0-35.0 [facility] MCV Auto (RBC) [Entitic vol] Ordered By: Edgar Valenzuela on 09-12-2023 MCV (RBC) [Entitic vol] 95.6 fL 80-100 [facility] Monocyte distribution width [Entitic volume] in Blood by AutomatedOrdered By: Edgar Valenzuela on 09-12-2023 Monocyte distribution width Auto (Bld) [Entitic vol] 19.90 % 0.00-20.[address] [facility] Monocytes Auto (Bld) [#/Vol] Ordered By: Edgar Valenzuela on 09-12-2023 Monocytes (Bld) [#/Vol] 0.6 10*3/uL 0.0-0.[address] [facility] Monocytes/100 WBC Auto (Bld) Ordered By: Edgar Valenzuela on 09-12-2023 Monocytes/100 WBC (Bld) 5.9 % . [facility] Natriuretic peptide B [Mass/ Vol]Ordered By: Edgar Valenzuela on 09-12-2023 Natriuretic peptide B (Bld) [Mass/Vol] 112.0 pg/mL High 5-[address] [facility] Neutrophils Auto (Bld) [#/Vo l]Ordered By: Edgar Valenzuela on 09-12-2023 Neutrophils (Bld) [#/Vol] 7.0 10*3/uL 1.8-7.[address] [facility] Neutrophils/100 WBC Auto (Bl d)Ordered By: Edgar Valenzuela on 09-12-2023 Neutrophils/100 WBC (Bld) 71.3 % . [facility] No Panel InformationOrdered By: Edgar Valenzuela on 09-12-2023 Estimated GFR (CKD-EPI) > 60.0 mL/Min [facility] Creatinine Clearance (Chem 73.[address] [facility] No Panel Informationon 09-11 Bedside Glucose [address] [facility] Nucleated erythrocytes [Pres ence] in Blood by Automated countOrdered By: Edgar Valenzuela on 09-12-2023 Nucleated RBC Auto Ql (Bld) 0.2 /100{WBC} 0-0.[address] [facility] Platelet mean volume Auto (B ld) [Entitic vol]Ordered By: Edgar Valenzuela on 09-12-2023 Platelet mean volume (Bld) [Entitic vol] 9.5 fL 6.3-10.[address] [facility] Platelets Auto (Bld) [#/Vol] Ordered By: Edgar Valenzuela on 09-12-2023 Platelets (Bld) [#/Vol] 195 10*3/uL 150-[address] [facility] Potassium [Moles/volume] in Serum or PlasmaOrdered By: Edgar Valenzuela on 09-12-2023 Potassium [Moles/Vol] 4.0 mmol/L 3.5-5.1 [facility] Prothrombin time (PT)Ordered By: Edgar Valenzuela on 09-12-2023 PT Coag (PPP) [Time] 12.7 s 9.0-12.9 [facility] Comment on above: A hematocrit value g reater than 55% may lead to inaccurate results in coagulation testing. Patients having hematocrit values >55% require a special collection tube for coagulation studies. Please contact the laboratory at [phone] for redraw instructions. RBC Auto (Bld) [#/Vol]Ordere d By: Edgar Valenzuela on 09-12-2023 RBC (Bld) [#/Vol] 5.16 10*6/uL High 3.60-5.00 [facility] Serum or plasma anion gap de terminationOrdered By: Edgar Valenzuela on 09-12-2023 Anion gap [Moles/Vol] 15.0 mmol/L 6.0-15.0 [facility] Sodium [Moles/volume] in Ser um or PlasmaOrdered By: Edgar Valenzuela on 09-12-2023 Sodium [Moles/Vol] 138 mmol/L 136-145 [facility] Troponin I.cardiac [Mass/vol ume] in Serum or Plasma by Detection limit <= 0.01 ng/Ordered By: Edgar Valenzuela on 09-12-2023 Troponin I.cardiac DL <= 0.01 ng/mL [Mass/Vol] 7.3 pg/mL 0.0-15.[address] [facility] Urea nitrogen [Mass/volume] in Serum or PlasmaOrdered By: Edgar Valenzuela on 09-12-2023 Urea nitrogen [Mass/Vol] 11 mg/dL 7-[address] [facility] WBC Auto (Bld) [#/Vol]Ordere d By: Edgar Valenzuela on 09-12-2023 WBC (Bld) [#/Vol] 9.8 10*3/uL 3.8-11.6 [facility] Alanine aminotransferase [En zymatic activity/volume] in Serum or PlasmaOrdered By: Angelique Russell on 09-05-2023 ALT [Catalytic activity/Vol] 19 U/L 7-[address] [facility] Albumin [Mass/volume] in Ser um or Plasma by Bromocresol green (BCG) dye binding methoOrdered By: Angelique Russell on 09-05-2023 Albumin BCG dye [Mass/Vol] 4.3 g/dL 3.5-5.[address] [facility] Alkaline phosphatase [Enzyma tic activity/volume] in Serum or PlasmaOrdered By: Angelique Russell on 09-05-2023 ALP [Catalytic activity/Vol] 81 U/L 34-[address] [facility] Aspartate aminotransferase [ Enzymatic activity/volume] in Serum or PlasmaOrdered By: Angelique Russell on 09-05-2023 AST [Catalytic activity/Vol] 26 U/L 13-[address] [facility] Bilirubin.total [Mass/volume ] in Serum or PlasmaOrdered By: Angelique Russell on 09-05-2023 Bilirubin [Mass/Vol] 0.7 mg/dL 0.3-1.0 [facility] Calcium [Mass/volume] in Ser um or PlasmaOrdered By: Angelique Russell on 09-05-2023 Calcium [Mass/Vol] 10.2 mg/dL 8.6-10.3 [facility] Carbon dioxide, total [Moles /volume] in Serum or PlasmaOrdered By: Angelique Russell on 09-05-2023 CO2 [Moles/Vol] 28.6 mmol/L 21.0-31.0 [facility] Chloride [Moles/volume] in S elliot or PlasmaOrdered By: Angelique Russell on 09-05-2023 Chloride [Moles/Vol] 102 mmol/L 98-107 [facility] Cholesterol [Mass/volume] in Serum or PlasmaOrdered By: Angelique Russell on 09-05-2023 Cholesterol [Mass/Vol] 143 mg/dL 140-200 [facility] Comment on above: Chol less than 200 m g/dl low riskChol 201-239 mg/dl borderline riskChol 240 mg/dl and greater high risk Cholesterol in LDL Calc [Mas s/Vol]Ordered By: Angelique Russell on 09-05-2023 Cholesterol in LDL [Mass/Vol] 62 mg/dL 0-[address] [facility] Comment on above: LDL ATP III CLASSIFI CATIONLDL less than 100 mg/dL OptimalLDL 100-129 mg/dL Near or above optimalLDL 130-159 mg/dL Borderline highLDL 160-189 mg/dL HighLDL greater than 189 mg/dL Very high Cholesterol in VLDL Calc [Ma ss/Vol]Ordered By: Angelique Russell on 09-05-2023 Cholesterol in VLDL [Mass/Vol] 51 mg/dL [facility] Creatinine [Mass/volume] in Serum or PlasmaOrdered By: Angelique Russell on 09-05-2023 Creatinine [Mass/Vol] 0.91 mg/dL 0.60-1.20 [facility] Creatinine [Mass/volume] in UrineOrdered By: Angelique Russell on 09-05-2023 Creatinine (U) [Mass/Vol] 118.0 mg/dL [facility] Comment on above: No reference range e stablished Globulin Calc (S) [Mass/Vol] Ordered By: Angelique Russell on 09-05-2023 Globulin (S) [Mass/Vol] 2.7 g/dL [facility] Glucose [Mass/volume] in Ser um or PlasmaOrdered By: Angelique Russell on 09-05-2023 Glucose [Mass/Vol] 197 mg/dL High 70-100 [facility] Comment on above: ADA recommended refe rence rangeRandom Glucose Reference Range is dependent on time and content of last meal. Glucose of more than 200 mg/dL in a nonstressed, ambulatory subject supports the diagnosis of Diabetes Mellitus. Microalbumin [Mass/volume] i n UrineOrdered By: Angelique Russell on 09-05-2023 Albumin DL <= 20 mg/L (U) [Mass/Vol] 18.4 mg/dL High 0.0-1.[address] [facility] No Panel InformationOrdered By: Angelique Russell on 09-05-2023 Estimated GFR (CKD-EPI) > 60.0 mL/Min [facility] Creatinine Clearance (Chem N/A [facility] Potassium [Moles/volume] in Serum or PlasmaOrdered By: Angelique Russell on 09-05-2023 Potassium [Moles/Vol] 4.2 mmol/L 3.5-5.1 [facility] Protein [Mass/volume] in Ser um or PlasmaOrdered By: Angelique Russell on 09-05-2023 Protein [Mass/Vol] 7.0 g/dL 6.4-8.9 [facility] Serum or plasma albumin/glob ulin mass ratioOrdered By: Angelique Russell on 09-05-2023 Albumin/Globulin [Mass ratio] 1.6 {ratio} [facility] Serum or plasma anion gap de terminationOrdered By: Angelique Russell on 09-05-2023 Anion gap [Moles/Vol] 13.6 mmol/L 6.0-15.0 [facility] Serum or plasma high density lipoprotein (HDL) cholesterol measurementOrdered By: Angelique Russell on 09-05-2023 Cholesterol in HDL [Mass/Vol] 30 mg/dL 23-[address] [facility] Comment on above: HDL CHOL ATP-III CLA SSIFICATION Cardiovascular RiskHDL > or equal to 60 mg/dL LOWHDL < 40 mg/dL HIGH Serum or plasma total choles terol/high density lipoprotein (HDL) cholesterol mass ratOrdered By: Angelique Russell on 09-05-2023 Cholesterol.total/Monica sterol in HDL [Mass ratio] 4.8 {ratio} <5.[address] [facility] Sodium [Moles/volume] in Ser um or PlasmaOrdered By: Angelique Russell on 09-05-2023 Sodium [Moles/Vol] 140 mmol/L 136-145 [facility] Triglyceride [Mass/volume] i n Serum or PlasmaOrdered By: Angelique Russell on 09-05-2023 Triglyceride [Mass/Vol] 256 mg/dL High 0-149 [facility] Comment on above: TRIG ATP III CLASSIF ICATIONTRIG less than 150 mg/dL NormalTRIG 150-199 mg/dL Borderline highTRIG 200-500 mg/dL High TRIG greater than 500 mg/dL Very highStandard traceable to the Center for Disease Conrtrol and Prevention (CDC) test method. Urea nitrogen [Mass/volume] in Serum or PlasmaOrdered By: Angelique Russell on 09-05-2023 Urea nitrogen [Mass/Vol] 12 mg/dL [address] [facility] Urine microalbumin/creatinin e mass ratioOrdered By: Angelique Russell on 09-05-2023 Albumin/Creatinine DL <= 20 mg/L (U) [Mass ratio] 155.0 mg/g High 0.0-30.[address] [facility] Comment on above: 30-300 mg/g indicate s an increased risk for diabetic nephropathy. Greater than 300 mg/g is consistent with clinical nephropathy. (Am. J. Kidney Disease 1995, 25:107) Vitamin B12 ser/plasOrdered By: Angelique Russell on 09-05-2023 Cobalamin (Vitamin B12) [Mass/Vol] 255 pg/mL 180-[address] [facility] Laboratory - Hematology and Cell countson 06-12-2023 HbA1c (Bld) [Mass fraction] 7.2 % [facility] No Panel Informationon 06-12 Bedside Glucose [address] [facility] A1C HEMOGLOBINon 01-07-2023 HbA1c (Bld) [Mass fraction] 6.3 % [employer] Other Glucose - [employer] Glucose [Mass/Vol] 196 mg/dL [employer] Other HbA1c (Bld) [Mass fraction]o n 01-07-2023 A1C HEMOGLOBIN [employer] Other A1C HEMOGLOBINon 09-27-2022 HbA1c (Bld) [Mass fraction] 6.6 % [employer] Other Glucose - FINGER [employer]on Glucose [Mass/Vol] 128 mg/dL [employer] Other HbA1c (Bld) [Mass fraction]o n 09-27-2022 A1C HEMOGLOBIN [employer] Other A1C HEMOGLOBINon 06-18-2022 HbA1c (Bld) [Mass fraction] 7.1 % [employer] Other Glucose - FINGER [employer]on Glucose [Mass/Vol] 219 mg/dL [employer] Other HbA1c (Bld) [Mass fraction]o n 06-18-2022 A1C HEMOGLOBIN [employer] Other A1C HEMOGLOBINon 01-09-2022 HbA1c (Bld) [Mass fraction] 7.7 % [employer] Other Glucose - FING[employer]on Glucose [Mass/Vol] 242 mg/dL [employer] Other HbA1c (Bld) [Mass fraction]o n 01-09-2022 A1C HEMOGLOBIN [employer] Other Consultation Noteon 12-26-19 Consultation Note [id number]: 127 [facility] Insurance Correspondence Off iceon 12-20-2021 Insurance Correspondence Office [id number]#[id number]: 127 Normal [facility] Urine culture routineOrdered By: Milo Watters on 12-19-2021 Bacteria identified Cx Nom (U) Zeny albicans [facility] Albumin [Mass/volume] in Ser um or PlasmaOrdered By: Milo Watters on 12-17-2021 Albumin [Mass/Vol] 3.4 g/dL 3.2-5.5 [facility] Automated erythrocytes count in urine sediment (number/area)Ordered By: Milo Watters on 12-17-2021 RBC Auto (Urine sed) [#/Area] 3-4 [HPF] 0-[address] [facility] Automated leukocytes count i n urine sediment (number/area)Ordered By: Milo Watters on 12-17-2021 WBC Auto (Urine sed) [#/Area] 50-100 [HPF] 0-[address] [facility] Automated urine hyaline cast s count (number/volume)Ordered By: Milo Watters on 12-17-2021 Hyaline casts Auto (U) [#/Vol] None seen [LPF] 0-[address] [facility] Basophils Auto (Bld) [#/Vol] Ordered By: Milo Watters on 12-17-2021 Basophils (Bld) [#/Vol] 0.1 10*3/uL 0.0-0.[address] [facility] Basophils/100 WBC Auto (Bld) Ordered By: Milo Watters on 12-17-2021 Basophils/100 WBC (Bld) 0.5 % . [facility] Bilirubin Test strip Ql (U)O rdered By: Milo Watters on 12-17-2021 Bilirubin Ql (U) Negative Negative [facility] Blood hemoglobin measurement (mass/volume)Ordered By: Milo Watters on 12-17-2021 Hemoglobin (Bld) [Mass/Vol] 16.1 g/dL 11.8-15.[address] [facility] Blood leukocytes automated c ount (number/volume)Ordered By: Milo Watters on 12-17-2021 WBC (Bld) [#/Vol] 10.7 10*3/uL 4.5-11.0 [facility] Casts typing in urine sedime nt by light microscopyOrdered By: Milo Watters on 12-17-2021 Casts LM Nom (Urine sed) None seen [LPF] None Seen [facility] Color Auto (U)Ordered By: Jonh Watters on 12-17-2021 Color (U) Yellow Yellow [facility] Creatinine and Glomerular fi ltration rate.predicted panel (S/P/Bld)Ordered By: Milo Watters on 12-17-2021 Creatinine [Mass/Vol] 0.89 mg/dL 0.44-1.03 [facility] Eosinophils Auto (Bld) [#/Vo l]Ordered By: Milo Watters on 12-17-2021 Eosinophils (Bld) [#/Vol] 0.1 10*3/uL 0.0-0.[address] [facility] Eosinophils/100 WBC Auto (Bl d)Ordered By: Milo Watters on 12-17-2021 Eosinophils/100 WBC (Bld) 1.0 % . [facility] Erythrocyte distribution wid th Auto (RBC) [Ratio]Ordered By: Milo Watters on 12-17-2021 Erythrocyte distribution width (RBC) [Ratio] 13.1 % 11.9-15.[address] [facility] Estimated glomerular filtrat ion rate (GFR) non- AmericanOrdered By: Milo Watters on 12-17-2021 GFR/1.73 sq M.predicted among non-blacks MDRD (S/P/Bld) [Vol rate/Area] > 60 mL/Min [facility] Globulin Calc (S) [Mass/Vol] Ordered By: Milo Watters on 12-17-2021 Globulin (S) [Mass/Vol] 3.9 g/dL [facility] Hematocrit Auto (Bld) [Volum e fraction]Ordered By: Milo Watters on 12-17-2021 Hematocrit (Bld) [Volume fraction] 48.5 % 34.0-46.[address] [facility] Ketones Auto test strip (U) [Mass/Vol]Ordered By: Milo Watters on 12-17-2021 Ketones (U) [Mass/Vol] Negative Negative Fi [facility] Laboratory - Hematology and Cell countsOrdered By: Milo Watters on 12-17-2021 Nucleated RBC/100 WBC (Bld) [Ratio] 0.1 % 0-0.[address] [facility] Lymphocytes Auto (Bld) [#/Vo l]Ordered By: Milo Watters on 12-17-2021 Lymphocytes (Bld) [#/Vol] 1.5 10*3/uL 1.00-4.[address] [facility] Lymphocytes/100 WBC Auto (Bl d)Ordered By: Milo Watters on 12-17-2021 Lymphocytes/100 WBC (Bld) 14.2 % . [facility] MCH Auto (RBC) [Entitic mass ]Ordered By: Milo Watters on 12-17-2021 MCH (RBC) [Entitic mass] 31.4 pg 24.7-34.[address] [facility] MCHC Auto (RBC) [Mass/Vol]Or dered By: Milo Watters on 12-17-2021 MCHC (RBC) [Mass/Vol] 33.2 g/dL 32.0-35.0 [facility] MCV Auto (RBC) [Entitic vol] Ordered By: Milo Watters on 12-17-2021 MCV (RBC) [Entitic vol] 94.6 fL 80-100 [facility] Monocytes Auto (Bld) [#/Vol] Ordered By: Milo Watters on 12-17-2021 Monocytes (Bld) [#/Vol] 0.8 10*3/uL 0.0-0.[address] [facility] Monocytes/100 WBC Auto (Bld) Ordered By: Milo Watters on 12-17-2021 Monocytes/100 WBC (Bld) 7.5 % . [facility] Neutrophils Auto (Bld) [#/Vo l]Ordered By: Milo Watters on 12-17-2021 Neutrophils (Bld) [#/Vol] 8.2 10*3/uL 1.8-7.[address] [facility] Neutrophils/100 WBC Auto (Bl d)Ordered By: Milo Watters on 12-17-2021 Neutrophils/100 WBC (Bld) 76.8 % . [facility] Nitrite Test strip Ql (U)Ord ered By: Milo Watters on 12-17-2021 Nitrite Ql (U) Negative Negative [facility] No Panel InformationOrdered By: Milo Watters on 12-17-2021 Estimated GFR () > 60 mL/Min [facility] Comment on above: GFR estimated refere nce range: According to KDOQI guidelines, <60 ml/min/1.73m2 is sufficient to diagnose a patient with chronic kidney disease. Pharmacy Creatinine Clearance (Chem 70.[address] [facility] Platelet mean volume Auto (B ld) [Entitic vol]Ordered By: Milo Watters on 12-17-2021 Platelet mean volume (Bld) [Entitic vol] 8.7 fL 6.3-10.[address] [facility] Platelets Auto (Bld) [#/Vol] Ordered By: Milo Watters on 12-17-2021 Platelets (Bld) [#/Vol] 239 10*3/uL 150-[address] [facility] Protein Auto test strip (U) [Mass/Vol]Ordered By: Milo Watters on 12-17-2021 Protein (U) [Mass/Vol] Trace mg/dL Negative [facility] Protein [Mass/volume] in Ser um or PlasmaOrdered By: Milo Watters on 12-17-2021 Protein [Mass/Vol] 7.3 g/dL 6.1-7.9 [facility] RBC Auto (Bld) [#/Vol]Ordere d By: Milo Watters on 12-17-2021 RBC (Bld) [#/Vol] 5.13 10*6/uL 3.60-5.00 [facility] Serum or plasma alanine tucker otransferase measurement without P-5'-P (enzymatic activiOrdered By: Milo Watters on 12-17-2021 ALT No additional P-5'-P [Catalytic activity/Vol] 38 U/L 10-[address] [facility] Serum or plasma albumin/glob ulin mass ratioOrdered By: Milo Watters on 12-17-2021 Albumin/Globulin [Mass ratio] 0.9 {ratio} [facility] Serum or plasma alkaline yue sphatase measurement (enzymatic activity/volume)Ordered By: Milo Watters on 12-17-2021 ALP [Catalytic activity/Vol] 109 U/L 32-[address] [facility] Serum or plasma aspartate am inotransferase measurement (enzymatic activity/volume)Ordered By: Milo Watters on 12-17-2021 AST [Catalytic activity/Vol] 43 U/L 10-[address] [facility] Serum or plasma calcium steve urement (mass/volume)Ordered By: Milo Watters on 12-17-2021 Calcium [Mass/Vol] 10.0 mg/dL 8.2-10.2 [facility] Serum or plasma chloride coleman surement (moles/volume)Ordered By: Milo Watters on 12-17-2021 Chloride [Moles/Vol] 102 mmol/L 95-114 [facility] Serum or plasma glucose steve urement (mass/volume)Ordered By: Milo Watters on 12-17-2021 Glucose [Mass/Vol] 231 mg/dL 70-100 [facility] Comment on above: ADA recommended refe rence range Random Glucose Reference Range is dependent on time and content of last meal. Glucose of more than 200 mg/dL in a nonstressed, ambulatory subject supports the diagnosis of Diabetes Mellitus. Serum or plasma potassium me asurement (moles/volume)Ordered By: OSORIO WHITE on 12-17-2021 Potassium [Moles/Vol] 3.6 mmol/L 3.5-5.1 [facility] Serum or plasma sodium measu rement (moles/volume)Ordered By: Milo Watters on 12-17-2021 Sodium [Moles/Vol] 137 mmol/L 136-146 [place] [facility] Serum or plasma total biliru bin measurement (mass/volume)Ordered By: Milo Watters on 12-17-2021 Bilirubin [Mass/Vol] 0.8 mg/dL 0.3-1.2 [facility] Serum or plasma total carbon dioxide measurement (moles/volume)Ordered By: Milo Watters on 12-17-2021 CO2 [Moles/Vol] 24.6 mmol/L 22.0-30.0 [facility] Serum or plasma urea nitroge n measurement (mass/volume)Ordered By: Milo Watters on 12-17-2021 Urea nitrogen [Mass/Vol] 8 mg/dL 01-[address] [facility] Specific gravity Auto test s trip (U) [Rel density]Ordered By: Milo Watters on 12-17-2021 Specific gravity (U) [Rel density] 1.030 1.001-1.[address] [facility] Squamous epithelial cells de tection in urine sediment by light microscopyOrdered By: Milo Watters on 12-17-2021 Epithelial cells.squamous LM Ql (Urine sed) None seen [HPF] 0-[address] [facility] Urine bacteria detection by automated methodOrdered By: Milo Watters on 12-17-2021 Bacteria Auto Ql (U) Rare None Seen [facility] Urine clarity by refractomet ry automatedOrdered By: Milo Watters on 12-17-2021 Clarity Refractometry automated (U) Clear Clear [facility] Urine glucose measurement by automated test strip (mass/volume)Ordered By: Milo Watters on 12-17-2021 Glucose Auto test strip (U) [Mass/Vol] >=1000 mg/dL Normal [facility] Urine hemoglobin detection b y automated test stripOrdered By: Milo Watters on 12-17-2021 Hemoglobin Auto test strip Ql (U) 1+ Negative [facility] Urine leukocyte esterase det ection by automated test stripOrdered By: Milo Watters on 12-17-2021 Leukocyte esterase Auto test strip Ql (U) 3+ Negative [facility] Urobilinogen Auto test strip (U) [Mass/Vol]Ordered By: Milo Watters on 12-17-2021 Urobilinogen (U) [Mass/Vol] Normal mg/dL Normal [facility] Yeast detection in urine sed iment by light microscopyOrdered By: Milo Watters on 12-17-2021 Yeast LM Ql (Urine sed) 3+ [HPF] None Seen [facility] pH Auto test strip (U)Ordere d By: Milo Watters on 12-17-2021 pH (U) 6.0 [pH] 5.0-9.[address] [facility] Bacterial blood cultureOrder ed By: Arleen Stephen on 12-14-2021 Bacteria identified Cx Nom (Bld) NO GROWTH [address] [facility] Basophils Auto (Bld) [#/Vol] Ordered By: Walter Montgomery on 12-13-2021 Basophils (Bld) [#/Vol] 0.0 10*3/uL 0.0-0.[address] [facility] Basophils/100 WBC Auto (Bld) Ordered By: Walter Montgomery on 12-13-2021 Basophils/100 WBC (Bld) 0.1 % . [facility] Blood hemoglobin measurement (mass/volume)Ordered By: Walter Montgomery on 12-13-2021 Hemoglobin (Bld) [Mass/Vol] 14.2 g/dL 11.8-15.[address] [facility] Blood leukocytes automated c ount (number/volume)Ordered By: Walter Montgomery on 12-13-2021 WBC (Bld) [#/Vol] 9.4 10*3/uL 4.5-11.0 [facility] Consultation Noteon 12-14-19 Consultation Note [id number]: 127 Normal [facility] Creatinine and Glomerular fi ltration rate.predicted panel (S/P/Bld)Ordered By: Walter Montgomery on 12-13-2021 Creatinine [Mass/Vol] 0.75 mg/dL 0.44-1.03 [facility] Direct bilirubin measurement Ordered By: Walter Montgomery on 12-13-2021 Bilirubin.direct [Mass/Vol] 0.2 mg/dL 0.0-0.[address] [facility] Eosinophils Auto (Bld) [#/Vo l]Ordered By: Walter Montgomery on 12-13-2021 Eosinophils (Bld) [#/Vol] 0.0 10*3/uL 0.0-0.[address] [facility] Eosinophils/100 WBC Auto (Bl d)Ordered By: Walter Montgomery on 12-13-2021 Eosinophils/100 WBC (Bld) 0.0 % . [facility] Erythrocyte distribution wid th Auto (RBC) [Ratio]Ordered By: Walter Montgomery on 12-13-2021 Erythrocyte distribution width (RBC) [Ratio] 12.9 % 11.9-15.[address] [facility] Estimated glomerular filtrat ion rate (GFR) non- AmericanOrdered By: Walter Montgomery on 12-13-2021 GFR/1.73 sq M.predicted among non-blacks MDRD (S/P/Bld) [Vol rate/Area] > 60 mL/Min [facility] Glucose Glucometer (BldC) [M ass/Vol]Ordered By: Wilmer Vance on 12-13-2021 Glucose [Mass/Vol] 230 mg/dL [facility] Comment on above: Random Glucose Refer ence Range is dependent on time and content of last meal. Glucose of more than 200 mg/dL in a nonstressed, ambulatory subject supports the diagnosis of Diabetes Mellitus. Hematocrit Auto (Bld) [Volum e fraction]Ordered By: Walter Montgomery on 12-13-2021 Hematocrit (Bld) [Volume fraction] 41.9 % 34.0-46.[address] [facility] Laboratory - Hematology and Cell countsOrdered By: Walter Montgomery on 12-13-2021 Nucleated RBC/100 WBC (Bld) [Ratio] 0.0 % 0-0.[address] [facility] Lymphocytes Auto (Bld) [#/Vo l]Ordered By: Walter Montgomery on 12-13-2021 Lymphocytes (Bld) [#/Vol] 0.7 10*3/uL 1.00-4.[address] [facility] Lymphocytes/100 WBC Auto (Bl d)Ordered By: Walter Montgomery on 12-13-2021 Lymphocytes/100 WBC (Bld) 7.7 % . [facility] MCH Auto (RBC) [Entitic mass ]Ordered By: Walter Montgomery on 12-13-2021 MCH (RBC) [Entitic mass] 32.2 pg 24.7-34.[address] [facility] MCHC Auto (RBC) [Mass/Vol]Or dered By: Walter Montgomery on 12-13-2021 MCHC (RBC) [Mass/Vol] 33.9 g/dL 32.0-35.0 [facility] MCV Auto (RBC) [Entitic vol] Ordered By: Walter Montgomery on 12-13-2021 MCV (RBC) [Entitic vol] 95.1 fL 80-100 [facility] Monocytes Auto (Bld) [#/Vol] Ordered By: Walter Montgomery on 12-13-2021 Monocytes (Bld) [#/Vol] 0.2 10*3/uL 0.0-0.[address] [facility] Monocytes/100 WBC Auto (Bld) Ordered By: Walter Montgomery on 12-13-2021 Monocytes/100 WBC (Bld) 1.8 % . [facility] Neutrophils Auto (Bld) [#/Vo l]Ordered By: Walter Montgomery on 12-13-2021 Neutrophils (Bld) [#/Vol] 8.5 10*3/uL 1.8-7.[address] [facility] Neutrophils/100 WBC Auto (Bl d)Ordered By: Walter Montgomery on 12-13-2021 Neutrophils/100 WBC (Bld) 90.4 % . [facility] No Panel InformationOrdered By: Walter Montgomery on 12-13-2021 Estimated GFR () > 60 mL/Min [facility] Comment on above: GFR estimated refere nce range: According to KDOQI guidelines, <60 ml/min/1.73m2 is sufficient to diagnose a patient with chronic kidney disease. Pharmacy Creatinine Clearance (Chem 84.[address] [facility] Platelet mean volume Auto (B ld) [Entitic vol]Ordered By: Walter Montgomery on 12-13-2021 Platelet mean volume (Bld) [Entitic vol] 9.3 fL 6.3-10.[address] [facility] Platelets Auto (Bld) [#/Vol] Ordered By: Walter Montgomery on 12-13-2021 Platelets (Bld) [#/Vol] 178 10*3/uL 150-[address] [facility] RBC Auto (Bld) [#/Vol]Ordere d By: Walter Montgomery on 12-13-2021 RBC (Bld) [#/Vol] 4.41 10*6/uL 3.60-5.00 [facility] Serum or plasma chloride coleman surement (moles/volume)Ordered By: Walter Montgomery on 12-13-2021 Chloride [Moles/Vol] 105 mmol/L 95-114 [facility] Serum or plasma non-glucuron idated bilirubin measurement (mass/volume)Ordered By: Walter Montgomery on 12-13-2021 Bilirubin.indirect [Mass/Vol] 0.5 mg/dL [facility] Serum or plasma potassium me asurement (moles/volume)Ordered By: Walter Montgomery on 12-13-2021 Potassium [Moles/Vol] 4.4 mmol/L 3.5-5.1 [facility] Serum or plasma sodium measu rement (moles/volume)Ordered By: Walter Montgomery on 12-13-2021 Sodium [Moles/Vol] 137 mmol/L 136-146 [facility] Serum or plasma total biliru bin measurement (mass/volume)Ordered By: Walter Montgomery on 12-13-2021 Bilirubin [Mass/Vol] 0.7 mg/dL 0.3-1.2 [facility] Serum or plasma total carbon dioxide measurement (moles/volume)Ordered By: Walter Montgomery on 12-13-2021 CO2 [Moles/Vol] 24.6 mmol/L 22.0-30.0 [facility] Serum or plasma urea nitroge n measurement (mass/volume)Ordered By: Walter Montgomery on 12-13-2021 Urea nitrogen [Mass/Vol] 12 mg/dL 9-[address] [facility] Activated partial thrombopla stin time (aPTT) in platelet poor plasma by coagulation aOrdered By: Walter Montgomery on 12-12-2021 aPTT Coag (PPP) [Time] 30.0 s 25.1-36.5 [facility] Laboratory - CoagulationOrde red By: Walter Montgomery on 12-12-2021 PT Coag (PPP) [Time] 14.1 s 9.0-12.9 [facility] Platelet poor plasma interna tional normalized ratio (INR) by coagulation assay (relatOrdered By: Walter Montgomery on 12-12-2021 INR Coag (PPP) [Relative time] 1.3 {INR} [facility] Comment on above: INR Therapeutic [...] 12-12-2021 ALP [Catalytic activity/Vol] 92 U/L 32-[address] [facility] Serum or plasma aspartate am inotransferase measurement (enzymatic activity/volume)Ordered By: Walter Montgomery on 12-12-2021 AST [Catalytic activity/Vol] 22 U/L 10-[address] [facility] Albumin [Mass/volume] in Ser um or PlasmaOrdered By: Arleen Stephen on 12-11-2021 Albumin [Mass/Vol] 2.9 g/dL 3.2-5.5 [facility] Globulin Calc (S) [Mass/Vol] Ordered By: Arleen Stephen on 12-11-2021 Globulin (S) [Mass/Vol] 3.0 g/dL [facility] No Panel InformationOrdered By: Arleen Stephen on 12-11-2021 Bedside Glucose Comment Glu2: cleaned meter [facility] Protein [Mass/volume] in Ser um or PlasmaOrdered By: Arleen Stephen on 12-11-2021 Protein [Mass/Vol] 5.9 g/dL 6.1-7.9 [facility] Serum or plasma alanine tucker otransferase measurement without P-5'-P (enzymatic activiOrdered By: Arleen Stephen on 12-11-2021 ALT No additional P-5'-P [Catalytic activity/Vol] 16 U/L 10-[address] [facility] Serum or plasma albumin/glob ulin mass ratioOrdered By: Arleen Stephen on 12-11-2021 Albumin/Globulin [Mass ratio] 1.0 {ratio} [facility] Serum or plasma calcium steve urement (mass/volume)Ordered By: Arleen Stephen on 12-11-2021 Calcium [Mass/Vol] 9.2 mg/dL 8.2-10.2 [facility] Serum or plasma glucose steve urement (mass/volume)Ordered By: Arleen Stephen on 12-11-2021 Glucose [Mass/Vol] 204 mg/dL 70-100 [facility] Comment on above: ADA recommended refe rence range Random Glucose Reference Range is dependent on time and content of last meal. Glucose of more than 200 mg/dL in a nonstressed, ambulatory subject supports the diagnosis of Diabetes Mellitus. Urine culture routineOrdered By: Tray Randle on 12-11-2021 Bacteria identified Cx Nom (U) Escherichia coli [facility] Automated erythrocytes count in urine sediment (number/area)Ordered By: Tray Randle on 12-09-2021 RBC Auto (Urine sed) [#/Area] 5-9 [HPF] 0-[address] [facility] Automated leukocytes count i n urine sediment (number/area)Ordered By: Tray Randle on 12-09-2021 WBC Auto (Urine sed) [#/Area] 50-100 [HPF] 0-[address] [facility] Automated urine hyaline cast s count (number/volume)Ordered By: Tray Randle on 12-09-2021 Hyaline casts Auto (U) [#/Vol] None seen [LPF] 0-[address] [facility] Bilirubin Test strip Ql (U)O rdered By: Tray Randle on 12-09-2021 Bilirubin Ql (U) Negative Negative [facility] COVID-19 Positive/NegativeOr dered By: Tray Randle on 12-09-2021 SARS-CoV-2 (COVID-19) N gene TEJINDER+probe Ql (Resp) Negative Negative [facility] Comment on above: Testing for SARS-CoV -2 by RT-PCR This test was developed and its performance characteristics determined by [employer] ([employer]) and validated at the [facility]. This test has not been [...] (COVID-19) Ag IA.rapid Ql (Resp) Negative Negative [facility] Comment on above: This is a duplicate Molly SARS Antigen (ANUP) result to be used for statistical tracking purpose only. Casts typing in urine sedime nt by light microscopyOrdered By: Tray Randle on 12-09-2021 Casts LM Nom (Urine sed) None seen [LPF] None Seen [facility] Color Auto (U)Ordered By: Carolina Randle on 12-09-2021 Color (U) Yellow Yellow [facility] Ketones Auto test strip (U) [Mass/Vol]Ordered By: Tray Randle on 12-09-2021 Ketones (U) [Mass/Vol] Negative Negative Fi [facility] Nitrite Test strip Ql (U)Ord ered By: Tray Randle on 12-09-2021 Nitrite Ql (U) Positive Negative [facility] No Panel InformationOrdered By: Tray Randle on 12-09-2021 SARS Antigen (LFIA) [facility] Protein Auto test strip (U) [Mass/Vol]Ordered By: Tray Randle on 12-09-2021 Protein (U) [Mass/Vol] Negative Negative [facility] Specific gravity Auto test s trip (U) [Rel density]Ordered By: Tray Randle on 12-09-2021 Specific gravity (U) [Rel density] 1.030 1.001-1.[address] [facility] Squamous epithelial cells de tection in urine sediment by light microscopyOrdered By: Tray Randle on 12-09-2021 Epithelial cells.squamous LM Ql (Urine sed) 10-19 [HPF] 0-[address] [facility] Troponin I.cardiac [Mass/vol ume] in Serum or Plasma by High sensitivity methodOrdered By: Arleen Stephen on 12-09-2021 Troponin I.cardiac High sensitivity method [Mass/Vol] 5 pg/mL 0-[address] [facility] Urine bacteria detection by automated methodOrdered By: Tray Randle on 12-09-2021 Bacteria Auto Ql (U) 4+ None Seen [facility] Urine clarity by refractomet ry automatedOrdered By: Tray Randle on 12-09-2021 Clarity Refractometry automated (U) Cloudy Clear [facility] Urine glucose measurement by automated test strip (mass/volume)Ordered By: Tray Randle on 12-09-2021 Glucose Auto test strip (U) [Mass/Vol] >=1000 mg/dL Normal [facility] Urine hemoglobin detection b y automated test stripOrdered By: Tray Randle on 12-09-2021 Hemoglobin Auto test strip Ql (U) Trace Negative [facility] Urine lactic acid measuremen tOrdered By: Arleen Stephen on 12-09-2021 Lactate (U) [Moles/Vol] 1.7 mmol/L 0.5-2.2 [facility] Urine leukocyte esterase det ection by automated test stripOrdered By: Tray Randle on 12-09-2021 Leukocyte esterase Auto test strip Ql (U) 2+ Negative [facility] Urobilinogen Auto test strip (U) [Mass/Vol]Ordered By: Tray Randle on 12-09-2021 Urobilinogen (U) [Mass/Vol] Normal mg/dL Normal [facility] pH Auto test strip (U)Ordere d By: Tray Randle on 12-09-2021 pH (U) 5.5 [pH] 5.0-9.[address] [facility] A1C HEMOGLOBINon 10-12-2021 HbA1c (Bld) [Mass fraction] 7.5 % [employer] Other HbA1c (Bld) [Mass fraction]o n 10-12-2021 A1C HEMOGLOBIN [employer] Other A1C HEMOGLOBINon 07-10-2021 HbA1c (Bld) [Mass fraction] 6 % [employer] Other Glucose - FINGER STICKon Glucose [Mass/Vol] 150 mg/dL [employer] Other HbA1c (Bld) [Mass fraction]o n 07-10-2021 A1C HEMOGLOBIN [employer] Other A1C HEMOGLOBINon 03-27-2021 HbA1c (Bld) [Mass fraction] 6.9 % [employer] Other Glucose - FINGER STICKon Glucose [Mass/Vol] 244 mg/dL [employer] Other HbA1c (Bld) [Mass fraction]o n 03-27-2021 A1C HEMOGLOBIN [employer] Other PROGRESSon 02-12-2019 PROGRESS HNO ID: [id number] Author: lCyde Hall Service: ? Author Type: Nurse Practitioner [...] - RTC to see Nov 1 at [facility], to ensure complete healing, and further discuss plan of care re pathology results. - call office prn for issues/concerns Clyde Hall APRN.JAYSON [facility] Nelson 02-11-2019 CNOV Office Visit (GYNML) -------- TAYE GAY ([id number]) 1955 F Date Time Provider Department 02/11/19 [...] Vulva, excision - High-grade squamous intraepithelial lesion (SONYN-3), classic type, with positive mucosal margins; see [...] - RTC to see Nov 1 at [facility], to ensure complete healing, and further discuss plan of care re pathology results. - call office prn for issues/concerns Clyde Hall APRN.JAYSON Referring Provider: THEO JOAQUIN [[id number]] Allergies As of Date: 02/11/2019 Noted Allergy [...] Status:Closed by CLYDE HALL CNP on 02/12/19 [facility] CNOVon 01-21-2019 CNOV Office Visit (GYNML) -------- TAYE GAY ([id number]) 1955 F Date Time Provider Department 01/21/19 10:45 AM THEO JOAQUIN During your visit today, we recorded the following information about you: Temperature Pulse Blood pressure Weight 98.6 degrees 94/minute 111/52 91.4 kg Theo Joaquin MD 01/22/2019 2:06 PM Signed Gynecologic Oncology [facility] Re: Taye Gay CCF#:[id number] 01/21/2019 Dear Nereida Castro: Taye presents for [...] were sent to: Nereida Castro MD (DrC) [address] [address] CC: Jonas Yoder MD (PCP) Referring Provider: THEO JOAQUIN [[id number]] Allergies As of Date: 01/21/2019 Noted Allergy [...] Status:Closed by THEO JOAQUIN MD on 01/22/19 [facility] PROGRESSon 01-08-2019 PROGRESS HNO ID: [id number] Author: Theo Joaquin Service: ? Author Type: Physician Type: Progress Notes Filed: 01/22/2019 2:06 PM Note Text: Gynecologic Oncology [facility] Re: Taye Gay CCF#:[id number] 01/21/2019 Dear Nereida Castro: Taye presents for [...] note were sent to: Nereida Castro MD ([facility]) [address] [address] CC: Jonas Yoder MD (PCP) [facility] CNOVon 01-07-2019 CNOV Office Visit (GYNML) -------- PRITITAYE ([id number]) 1955 F Date Time Provider Department 01/07/19 8:30 AM THEO JOAQUIN GYNML During your visit today, we recorded the following information about you: Temperature Pulse Blood pressure Weight 98.4 degrees 124/minute 103/53 90.2 kg Theo Joaquni MD 01/10/2019 11:17 PM Signed Gynecologic Oncology [facility] Re: Taye Priti CCF#:[id number] 01/07/2019 Dear Nereida Castro: Taye presents for [...] were sent to: Nereida Castro MD (Dr[facility]) [address] [address] CC: Jonas Yoder MD (PCP) Referring Provider: THEO JOAQUIN [[id number]] Allergies As of Date: 01/07/2019 Noted Allergy [...] Status:Closed by THEO JOAQUIN MD on 01/10/19 [facility] TAYE GAY ([id number]) 1955 F Date Time Provider Department 01/06/19 SHANTEL REYNOSO (BRENDA) GYNML During your visit today, we recorded [...] Appointment made with Dr. Joaquin 01/07 @ 1481 for wound check Patient verbalized understanding and [...] Encounter Status:Closed by SHANTEL REYNOSO on 01/06/19 [facility] PROGRESSon 01-06-2019 PROGRESS HNO ID: [id number] Author: Theo Joaquin Service: ? Author Type: Physician Type: Progress Notes Filed: 01/10/2019 11:17 PM Note Text: Gynecologic Oncology [facility] Re: Taye Gay F#:[id number] 01/07/2019 Dear Nereida Castro: Taye presents for [...] sent to: Nereida Castro MD (Dr[facility]) [address] [address] CC: Jonas Yoder MD (PCP) [facility] ANES Yousuf 01-01-2019 ANES POST HNO ID: [id number] Author: Katharina Durham Service: Anesthesiology Author Type: [...] 01, 2019 TIME: 9:45 AM PAGER/CONTACT #: [facility] DELANEY PREOPon 01-01-2019 ANES PREOP HNO ID: [id number] Author: Katharina Durham Service: Anesthesiology Author Type: [...] Monitors Pain Management Plan: ROOT Protocol [facility] Chart Review ACTIVE PROBLEM LIST Hypertension [...] 7 days Inpatient medications reviewed in [facility]. I have interviewed and examined the [...] 01, 2019 TIME: 7:35 AM PAGER/CONTACT #: [facility] HISTORY PHYSICALon 9 HISTORY PHYSICAL HNO ID: [id number] Author: Petty Shahid (Fel) Service: Gynecology Oncology [...] January 01, 2019 TIME: 7:16 AM PAGER: [facility] OPERATIVE NOon 01-01-2019 OPERATIVE NO HNO ID: [id number] Author: Theo Joaquin Service: Gynecology Oncology Author Type: Physician Type: Operative Report Filed: 01/17/2019 7:16 PM Note Text: OPERATIVE/PROCEDURE REPORT LOG ID: [id number] SURGERY/PROCEDURE DATE: 01/01/2019 INCISION/PROCEDURE START TIME: 8:11 AM INCISION CLOSE/PROCEDURE END TIME: 8:34 AM SURGEON(S)/PROCEDURALIST (S) AND V BLOCK SAW OPERATOR(S): Surgeon(s) and Role: * Theo Joaquin - [...] 03, 2019 TIME: 2:24 PM PAGER/CONTACT #: [facility] PT EDon 01-01-2019 PT ED HNO ID: [id number] Author: Patty GalvinRn) BRENDA Bernal Service: Nursing [...] st Electronically Signed By: Patty Bernal RN [facility] PT ED HNO ID: [id number] Author: Milly GalvinRn) BRENDA Murry Service: Nursing [...] None Electronically Signed By: Milly Murry RN [facility] PT ED HNO ID: [id number] Author: Jelly Maldonado) BRENDA Simmons Service: Nursing Author Type: Registered [...] None Electronically Signed By: Jelly Simmons RN [facility] SURGICAL PATHOLOGYon 019 SURGICAL PATHOLOGY Specimen originated from [facility] Specimen #: [id number] Submitting Physician: THEO JOAQUIN MD __ FINAL [...] order from 12 o'clock to 6 o'clock. Jatinder 01/01/2019 Gross examination performed at [facility], [address] [place] [address] Date of Report: 01/05/2019 Date of Procedure: 01/01/2019 Date of Receipt: 01/01/2019 Submitted by: THEO JOAQUIN MD Location: [facility] Diagnostic interpretation performed at [facility], [address] [place] [address]. CLIA Number: [id number] [facility] NURSING PROGon 12-24-2018 NURSING PROG HNO ID: [id number] Author: Nataliya (Rn) BRENDA Bell Service: Nursing [...] Bell RN December 24, 2018 3:07 PM [facility] Confirm Blood Typeon 019 ABO/RH(D) Positive [facility] Comment on above: Performed By: #### C ONABO #### [place] [address] Type and SCR (30D)on 019 ABO/RH(D) Positive [facility] Comment on above: Performed By: #### T [id number] #### [address] [place] [address] HOSPon 12-05-2018 HOSP Patient:Taye Gay MRN: Height:5' [...] 51.2 % 12/17/2018 46.0 36.0 Progress Notes (STEWARDING SUPERVISOR [facility]): Aracelis Charles RN, RN 12/22/2018 11:38 AM Signed Pre-op teaching Procedure: vulvar surgery Physician: Location: [facility]: [phone] Date AND Time: 01/01/19 MEDICAL CLEARANCE: No [...] Naprosyn(naproxen) Agrylin NSAIDS Pepto-Bismol Aleve Ecotrin Persantine [place] Excedrin Plaquenil Anacin Heparin Plavix Ascriptin Herbals [...] - IV pain medication after surgery, IV INTERNET PROJECT MANAGER if ordered by MD, discharged home with a prescription for PO pain medication, pain management after surgery, side effects of pain medication (including constipation, dizziness, drowsiness, and medication interactions). DVT PROPHYLAXIS - Early ambulation, SCDs, injectable anticoagulants (heparin, lovenox, etc) RESPIRATORY - Incentive spirometer, coughing/deep breathing exercises, ambulation. RETURN TO WORK - As directed by physician, please send any FMLA papers to physician's administrative secretary. SYMPTOMS TO NOTIFY MD - Fever, [...] if after hours patient instructed to call dethistler operator and ask for the doctor glass production machine operator. Patient and family have phone number to call 24 hours/day. Patient Evaluation: Verbalizes understanding Patient and/or family express understanding of upcoming surgery and the operative process. Questions answered. Follow Up Plan: Follow up as needed Supplemental Material Given: Pre-operative teaching packet provided to the patient: INPATIENT/OUTPATIENT printed instructions; Post-operative instruction sheet, bowel prep instruction sheet For questions contact: office at [phone] Instructed By Aracelis Charles RN [facility] Serum or plasma calcidiol me asurement (mass/volume)on 07-10-2018 25-hydroxyvitamin D3 [Mass/Vol] 32.8 ng/mL 30-[address] [facility] Comment on above: VITAMIN D STATUS 25( [place])VITAMIN D RANGE (ng/mL) Deficient <20 Insufficient 20 to <30Sufficient 30 to 100Reference: Sandra MF,Felisha NC, Leon SHERWOOD, et al. Evaluation,treatment, and prevention of vitamin D deficiency; an Endocrine Society clinical practice guideline. JCEM. 2010; 96(7):1911-30. Vitamin B12 ser/plason 07-10 Cobalamin (Vitamin B12) [Mass/Vol] 446 pg/mL 180-[address] [facility] BASIC METABOLIC PANELon 04-29 Anion gap 11 mmol/L Normal 0-19 [facility] Comment on above: Performed By: #### B MP ####[address],[place] [address] BUN/Creatinine Ratio 16.0 RATIO Normal 8-21 [facility] Comment on above: Performed By: #### B MP ####[address],[place] [address] Calcium 9.1 mg/dL Normal 8.5-10.4 [facility] Comment on above: Performed By: #### B MP ####[address],[place] [address] Chloride 98 mmol/L Normal 97-107 [facility] Comment on above: Performed By: #### B MP ####[address],[place] [address] CO2 25 mmol/L Normal 24-31 [facility] Comment on above: Performed By: #### B MP ####[address],[place] [address] Creatinine 0.5 mg/dL Normal 0.4-1.6 [facility] Comment on above: Performed By: #### B MP ####[address],[place] [address] eGFR (MDRD) Normal [facility] Comment on above: Result Comment: 134G FR ml/min/1.73m2 Stage -----90 160-89 230-59 315-29 4<15 5For -Americans, multiply EGFR result by 1.210Calculation not validated for patients under 18 years of age.Performed at [facility],[address],[place] [address] Performed By: #### B MP ####[address],[place] [address] Glucose mass conc 331 mg/dL High 65-99 [facility] Comment on above: Performed By: #### B MP ####[address],[place] [address] Potassium molar conc 4.6 mmol/L Normal 3.4-5.1 [facility] Comment on above: Performed By: #### B MP ####[address] ,[place] [address] Sodium 134 mmol/L Normal 133-145 [facility] Comment on above: Performed By: #### B MP ####[address] ,[place] [address] Urea nitrogen 8 mg/dL Normal 8-25 [facility] Comment on above: Performed By: #### B MP ####[address] ,[place] [address] EKGon 05-16-2017 EKG EKGVentric ular Rate : 60 BPMAtrial Rate : 60 BPMP-R Interval : 166 msQRS Duration : 80 msQ-T Interval : 432 msQTC Calculation(Bezet) : 432 msCalculated P Alton : 63 degreesCalculated R Alton : 29 degreesCalculated T Alton : 35 degreesDiagnosis:Normal sinus rhythmNormal ECGNo previous ECGs availableConfirmed by Walter Slaughter ([id number]) on 05/16/2017 3:45:18 PM Normal [facility] HEMOGLOBIN,HCTon 05-16-2017 Hematocrit (HCT) High 36-44 [facility] Comment on above: Result Comment: 49.3 Performed at [facility],[address] [place] [address] Performed By: #### H H ####[address] [place] [address] Hemoglobin mass conc (Bld) 16.9 g/dL High 12.0-15.0 [facility] Comment on above: Performed By: #### H H ####[address] ,[place] [address] Operative Reporton 8 Operative Report Normal [facility] POCT GLUCOSEon 05-16-2017 Glucose mass conc 268 mg/dL High 65-99 [facility] Comment on above: Performed By: #### P CGL ####[facility] [place] [address] Glucose mass conc 292 mg/dL High 65-99 [facility] Comment on above: Performed By: #### P CGL ####[place] [address] [place] [address] Glucose mass conc 358 mg/dL High 65-99 [facility] Comment on above: Performed By: #### P CGL ####[facility] [place] [address] Glucose mass conc 243 mg/dL High 65-99 [facility] Comment on above: Performed By: #### P CGL ####[facility] [place] [address] Vital Signs Date Time Vital Sign Value Performing Clinician Yue perez 01-12-2025 14:23-0400 Body height 170.18 cm Shantel Norton APRN Work Phone: [facility] 01-12-2025 14:23-0400 Body mass index (BMI) [Ratio] 30.5 kg/m2 Shantel Norton APRN Work Phone: [facility] 01-12-2025 14:23-0400 Body temperature 97 [degF] Shantel Norton APRN Work Phone: [facility] 01-12-2025 14:23-0400 Body weight 88.45 kg Shantel Norton APRN Work Phone: [facility] 01-12-2025 14:23-0400 Diastolic blood pressure 80 mm[Hg] Shantel Norton APRN Work Phone: [facility] 01-12-2025 14:23-0400 Heart rate 88 /min Shantel Norton APRN Work Phone: [facility] 01-12-2025 14:23-0400 SaO2% (BldA) [Mass fraction] 96 % Shantel Norton APRN Work Phone: [facility] 01-12-2025 14:23-0400 Systolic blood pressure 126 mm[Hg] Shantel Norton APRN Work Phone: [facility] 01-05-2025 13:32-0400 Body height 170.18 cm Shantel Norton APRN Work Phone: [facility] 01-05-2025 13:32-0400 Body mass index (BMI) [Ratio] 30.5 kg/m2 Shantel Cierra FR[employer]ER Work Phone: [facility] 01-05-2025 13:32-0400 Body weight 88.5 kg Shantel Corralzara [employer] Work Phone: [facility] 01-05-2025 13:32-0400 Diastolic blood pressure 70 mm[Hg] Shantel Cierra [employer]ER Work Phone: [facility] 01-05-2025 13:32-0400 Heart rate 79 /min Shantel Cierra [employer]ER Work Phone: [facility] 01-05-2025 13:32-0400 Respiratory rate 18 /min Shantel Cierra [employer] Work Phone: [facility] 01-05-2025 13:32-0400 SaO2% (BldA) [Mass fraction] 96 % Shantel Cierra [employer]ER Work Phone: [facility] 01-05-2025 13:32-0400 Systolic blood pressure 115 mm[Hg] Shantel Cierra GODDARD Work Phone: [facility] 12-30-2024 13:47-0400 Body height 170.2 cm Roland Faust MD Work Phone: [facility] 12-30-2024 13:47-0400 Body mass index (BMI) [Ratio] 30.85 kg/m2 Roland Faust MD Work Phone: [facility] 12-30-2024 13:47-0400 Body weight 89.36 kg Roland Faust MD Work Phone: [facility] 12-30-2024 13:47-0400 Diastolic blood pressure 70 mm[Hg] Roland Faust MD Work Phone: [facility] 12-30-2024 13:47-0400 Heart rate 62 /min Roland Faust MD Work Phone: [facility] 12-30-2024 13:47-0400 Systolic blood pressure 100 mm[Hg] Roland Faust MD Work Phone: [facility] 12-15-2024 13:52-0400 Body height 170.18 cm Sandra Keita DO Work Phone: [facility] 12-15-2024 13:52-0400 Body mass index (BMI) [Ratio] 30.7 kg/m2 Sandra Keita DO Work Phone: [facility] 12-15-2024 13:52-0400 Body temperature 96.4 [degF] Sandra Keita DO Work Phone: [facility] 12-15-2024 13:52-0400 Body weight 88.9 kg Sandra Keita DO Work Phone: [facility] 12-15-2024 13:52-0400 Diastolic blood pressure 62 mm[Hg] Sandra Keita DO Work Phone: [facility] 12-15-2024 13:52-0400 Heart rate 79 /min Sandra Keita DO Work Phone: [facility] 12-15-2024 13:52-0400 SaO2% (BldA) [Mass fraction] 98 % Sandra Keita DO Work Phone: [facility] 12-15-2024 13:52-0400 Systolic blood pressure 98 mm[Hg] Sandra Keita DO Work Phone: [facility] 10-06-2024 13:57-0400 Body height 170.2 cm Oz Kincaid MD Work Phone: [facility] 10-06-2024 13:57-0400 Body mass index (BMI) [Ratio] 31.48 kg/m2 Oz Kincaid MD Work Phone: [facility] 10-06-2024 13:57-0400 Body weight 91.17 kg Oz Kincaid MD Work Phone: [facility] 10-01-2024 14:59-0400 Body height 170.18 cm Sandra Keita DO Work Phone: [facility] 10-01-2024 14:59-0400 Body mass index (BMI) [Ratio] 31.4 kg/m2 Sandra Keita DO Work Phone: [facility] 10-01-2024 14:59-0400 Body weight 91.17 kg Sandra Keita DO Work Phone: [facility] 10-01-2024 14:59-0400 Diastolic blood pressure 65 mm[Hg] Sandra Keita DO Work Phone: [facility] 10-01-2024 14:59-0400 Heart rate 65 /min Sandra Keita DO Work Phone: [facility] 10-01-2024 14:59-0400 SaO2% (BldA) [Mass fraction] 95 % Sandra Keita DO Work Phone: [facility] 10-01-2024 14:59-0400 Systolic blood pressure 86 mm[Hg] Sandra Keita DO Work Phone: [facility] 09-10-2024 13:30-0400 Diastolic blood pressure 76 mm[Hg] Sandra Keita DO Work Phone: [facility] 09-10-2024 13:30-0400 Heart rate 79 /min Sandra Keita DO Work Phone: [facility] 09-10-2024 13:30-0400 Respiratory rate 16 /min Sandra Keita DO Work Phone: [facility] 09-10-2024 13:30-0400 SaO2% (BldA) [Mass fraction] 95 % Sandra Keita DO Work Phone: [facility] 09-10-2024 13:30-0400 Systolic blood pressure 116 mm[Hg] Sandra Keita DO Work Phone: [facility] 09-10-2024 13:00-0400 Inhaled oxygen flow rate 2 L/min Sandra Keita DO Work Phone: [facility] 09-10-2024 11:07-0400 Body height 170.18 cm Sandra Keita DO Work Phone: [facility] 09-10-2024 11:07-0400 Body weight 90.71 kg Sandra Keita DO Work Phone: [facility] 09-07-2024 11:06-0400 Diastolic blood pressure 65 mm[Hg] Sandra Keita DO Work Phone: [facility] 09-07-2024 11:06-0400 Systolic blood pressure 112 mm[Hg] Sandra Keita DO Work Phone: [facility] 08-25-2024 13:37-0400 Body height 170.18 cm Sandra Keita DO Work Phone: [facility] 08-25-2024 13:37-0400 Body mass index (BMI) [Ratio] 31.8 kg/m2 Sandra Keita DO Work Phone: [facility] 08-25-2024 13:37-0400 Body weight 92.16 kg Sandra Keita DO Work Phone: [facility] 08-25-2024 13:37-0400 Diastolic blood pressure 66 mm[Hg] Sandra Keita DO Work Phone: [facility] 08-25-2024 13:37-0400 Heart rate 71 /min Sandra Keita DO Work Phone: [facility] 08-25-2024 13:37-0400 Respiratory rate 18 /min Sandra Keita DO Work Phone: [facility] 08-25-2024 13:37-0400 SaO2% (BldA) [Mass fraction] 96 % Sandra Keita DO Work Phone: [facility] 08-25-2024 13:37-0400 Systolic blood pressure 104 mm[Hg] Sandra Keita DO Work Phone: [facility] 08-20-2024 10:03-0400 Body height 170.18 cm Sandra Keita DO Work Phone: [facility] 08-20-2024 10:03-0400 Body mass index (BMI) [Ratio] 32.2 kg/m2 Sandra Keita DO Work Phone: [facility] 08-20-2024 10:03-0400 Body weight 93.3 kg Sandra Keita DO Work Phone: [facility] 08-20-2024 10:03-0400 Diastolic blood pressure 68 mm[Hg] Sandra Keita DO Work Phone: [facility] 08-20-2024 10:03-0400 Heart rate 64 /min Sandra Keita DO Work Phone: [facility] 08-20-2024 10:03-0400 Respiratory rate 18 /min Sandra Keita DO Work Phone: [facility] 08-20-2024 10:03-0400 SaO2% (BldA) [Mass fraction] 94 % Sandra Keita DO Work Phone: [facility] 08-20-2024 10:03-0400 Systolic blood pressure 138 mm[Hg] Sandra Keita DO Work Phone: [facility] 07-22-2024 11:19-0400 Body height 170.18 cm Sandra Keita DO Work Phone: [facility] 07-22-2024 11:19-0400 Body mass index (BMI) [Ratio] 31.3 kg/m2 Sandra Keita DO Work Phone: [facility] 07-22-2024 11:19-0400 Body temperature 98.2 [degF] Sandra Keita DO Work Phone: [facility] 07-22-2024 11:19-0400 Body weight 90.71 kg Sandra Keita DO Work Phone: [facility] 07-22-2024 11:19-0400 Diastolic blood pressure 68 mm[Hg] Sandra Keita DO Work Phone: [facility] 07-22-2024 11:19-0400 Heart rate 72 /min Sandra Keita DO Work Phone: [facility] 07-22-2024 11:19-0400 Respiratory rate 16 /min Sandra Keita DO Work Phone: [facility] 07-22-2024 11:19-0400 SaO2% (BldA) [Mass fraction] 98 % Sandra Keita DO Work Phone: [facility] 07-22-2024 11:19-0400 Systolic blood pressure 118 mm[Hg] Sandra Keita DO Work Phone: [facility] 07-21-2024 14:48-0400 Body height 170.2 cm Oz Kincaid MD Work Phone: [facility] 07-21-2024 14:48-0400 Body mass index (BMI) [Ratio] 31.32 kg/m2 Oz Kincaid MD Work Phone: [facility] 07-21-2024 14:48-0400 Body weight 90.72 kg Oz Kincaid MD Work Phone: [facility] 06-26-2024 09:46-0500 Body height 170.2 cm Roland Faust MD Work Phone: [facility] 06-26-2024 09:46-0500 Body mass index (BMI) [Ratio] 32.51 kg/m2 Roland Faust MD Work Phone: [facility] 06-26-2024 09:46-0500 Body weight 94.17 kg Roland Faust MD Work Phone: [facility] 06-26-2024 09:46-0500 Diastolic blood pressure 70 mm[Hg] Roland Faust MD Work Phone: [facility] 06-26-2024 09:46-0500 Heart rate 62 /min Roland Faust MD Work Phone: [facility] 06-26-2024 09:46-0500 Systolic blood pressure 116 mm[Hg] Roland Faust MD Work Phone: [facility] 05-07-2024 13:07-0500 Body height 170.18 cm Sandra Keita DO Work Phone: [facility] 05-07-2024 13:07-0500 Body mass index (BMI) [Ratio] 32.9 kg/m2 Sandra Debbie DO Work Phone: [facility] 05-07-2024 13:07-0500 Body weight 95.3 kg Sandra Debbie DO Work Phone: [facility] 05-07-2024 13:07-0500 Diastolic blood pressure 52 mm[Hg] Sandra Debbie DO Work Phone: [facility] 05-07-2024 13:07-0500 Heart rate 64 /min Sandra Debbie DO Work Phone: [facility] 05-07-2024 13:07-0500 Respiratory rate 18 /min Sandra Keita DO Work Phone: [facility] 05-07-2024 13:07-0500 SaO2% (BldA) [Mass fraction] 97 % Sandra Keita DO Work Phone: [facility] 05-07-2024 13:07-0500 Systolic blood pressure 82 mm[Hg] Sandra Keita DO Work Phone: [facility] 04-30-2024 08:25-0500 Body temperature 97.8 [degF] Sandra Keita DO Work Phone: [facility] 04-30-2024 08:25-0500 Diastolic blood pressure 83 mm[Hg] Sandra Keita DO Work Phone: [facility] 04-30-2024 08:25-0500 Heart rate 64 /min Sandra Keita DO Work Phone: [facility] 04-30-2024 08:25-0500 Respiratory rate 18 /min Sandra Keita DO Work Phone: [facility] 04-30-2024 08:25-0500 SaO2% (BldA) [Mass fraction] 96 % Sandra Keita DO Work Phone: [facility] 04-30-2024 08:25-0500 Systolic blood pressure 141 mm[Hg] Sandra Keita DO Work Phone: [facility] 04-30-2024 05:12-0500 Body weight 96.2 kg Sandra Keita DO Work Phone: [facility] 04-28-2024 23:40-0500 Body height 170.18 cm Sandra Keita DO Work Phone: [facility] 04-28-2024 23:19-0500 Diastolic blood pressure 68 mm[Hg] Sandra Keita DO Work Phone: [facility] 04-28-2024 23:19-0500 Heart rate 72 /min Sandra Keita DO Work Phone: [facility] 04-28-2024 23:19-0500 Respiratory rate 18 /min Sandra Keita DO Work Phone: [facility] 04-28-2024 23:19-0500 SaO2% (BldA) [Mass fraction] 98 % Sandra Keita DO Work Phone: [facility] 04-28-2024 23:19-0500 Systolic blood pressure 135 mm[Hg] Sandra Keita DO Work Phone: [facility] 04-28-2024 19:39-0500 Body height 170.18 cm Sandra Keita DO Work Phone: [facility] 04-28-2024 19:39-0500 Body temperature 98.1 [degF] Sandra Keita DO Work Phone: [facility] 04-28-2024 19:39-0500 Body weight 95.4 kg Sandra Keita DO Work Phone: [facility] 04-28-2024 11:35-0500 Body height 170.18 cm Sandra Keita DO Work Phone: [facility] 04-28-2024 11:35-0500 Body mass index (BMI) [Ratio] 32.5 kg/m2 Sandra Keita DO Work Phone: [facility] 04-28-2024 11:35-0500 Body weight 94.34 kg Sandra Keita DO Work Phone: [facility] 04-28-2024 11:35-0500 Diastolic blood pressure 58 mm[Hg] Sandra Keita DO Work Phone: [facility] 04-28-2024 11:35-0500 Heart rate 71 /min Sandra Keita DO Work Phone: [facility] 04-28-2024 11:35-0500 Respiratory rate 18 /min Sandra Keita DO Work Phone: [facility] 04-28-2024 11:35-0500 SaO2% (BldA) [Mass fraction] 94 % Sandra Keita DO Work Phone: [facility] 04-28-2024 11:35-0500 Systolic blood pressure 94 mm[Hg] Sandra Keita DO Work Phone: [facility] 04-28-2024 10:15-0500 Body height 170.18 cm Sandra Keita DO Work Phone: [facility] 04-28-2024 10:15-0500 Body mass index (BMI) [Ratio] 32.7 kg/m2 Sandra Keita DO Work Phone: [facility] 04-28-2024 10:15-0500 Body temperature 97.9 [degF] Sandra Keita DO Work Phone: [facility] 04-28-2024 10:15-0500 Body weight 94.8 kg Sandra Keita DO Work Phone: [facility] 04-28-2024 10:15-0500 Diastolic blood pressure 64 mm[Hg] Sandra Keita DO Work Phone: [facility] 04-28-2024 10:15-0500 Heart rate 70 /min Sandra Keita DO Work Phone: [facility] 04-28-2024 10:15-0500 Respiratory rate 16 /min Sandra Keita DO Work Phone: [facility] 04-28-2024 10:15-0500 SaO2% (BldA) [Mass fraction] 96 % Sandra Keita DO Work Phone: [facility] 04-28-2024 10:15-0500 Systolic blood pressure 88 mm[Hg] Sandra Keita DO Work Phone: [facility] 04-27-2024 14:29-0500 Body height 170.18 cm Sandra Keita DO Work Phone: [facility] 04-27-2024 14:29-0500 Body temperature 98 [degF] Sandra Keita DO Work Phone: [facility] 04-27-2024 14:29-0500 Body weight 90.71 kg Sandra Keita DO Work Phone: [facility] 04-27-2024 14:29-0500 Diastolic blood pressure 61 mm[Hg] Sandra Keita DO Work Phone: [facility] 04-27-2024 14:29-0500 Heart rate 80 /min Sandra Keita DO Work Phone: [facility] 04-27-2024 14:29-0500 Respiratory rate 18 /min Sandra Keita DO Work Phone: [facility] 04-27-2024 14:29-0500 SaO2% (BldA) [Mass fraction] 93 % Sandra Keita DO Work Phone: [facility] 04-27-2024 14:29-0500 Systolic blood pressure 116 mm[Hg] Sandra Keita DO Work Phone: [facility] 04-14-2024 09:35-0500 Body height 170.18 cm Sandra Keita DO Work Phone: [facility] 04-14-2024 09:35-0500 Body mass index (BMI) [Ratio] 32.1 kg/m2 Sandra Keita DO Work Phone: [facility] 04-14-2024 09:35-0500 Body temperature 98 [degF] Sandra Keita DO Work Phone: [facility] 04-14-2024 09:35-0500 Body weight 92.98 kg Sandra Keita DO Work Phone: [facility] 04-14-2024 09:35-0500 Diastolic blood pressure 80 mm[Hg] Sandra Keita DO Work Phone: [facility] 04-14-2024 09:35-0500 Heart rate 78 /min Sandra Keita DO Work Phone: [facility] 04-14-2024 09:35-0500 Respiratory rate 20 /min Sandra Keita DO Work Phone: [facility] 04-14-2024 09:35-0500 SaO2% (BldA) [Mass fraction] 98 % Sandra Keita DO Work Phone: [facility] 04-14-2024 09:35-0500 Systolic blood pressure 126 mm[Hg] Sandra Keita DO Work Phone: [facility] 04-07-2024 13:26-0500 Body height 170.2 cm Oz Kincaid MD Work Phone: [facility] 04-07-2024 13:26-0500 Body mass index (BMI) [Ratio] 31.32 kg/m2 Oz Kincaid MD Work Phone: [facility] 04-07-2024 13:26-0500 Body weight 90.72 kg Oz Kincaid MD Work Phone: [facility] 03-25-2024 13:42-0500 Body height 170.2 cm Roland Faust MD Work Phone: [facility] 03-25-2024 13:42-0500 Body mass index (BMI) [Ratio] 32.58 kg/m2 Roland Faust MD Work Phone: [facility] 03-25-2024 13:42-0500 Body weight 94.35 kg Roland Faust MD Work Phone: [facility] 03-25-2024 13:42-0500 Diastolic blood pressure 64 mm[Hg] Roland Faust MD Work Phone: [facility] 03-25-2024 13:42-0500 Heart rate 63 /min Roland Faust MD Work Phone: [facility] 03-25-2024 13:42-0500 Systolic blood pressure 100 mm[Hg] Roland Faust MD Work Phone: [facility] 02-25-2024 13:55-0400 Body height 170.2 cm Oz Kincaid MD Work Phone: [facility] 02-25-2024 13:55-0400 Body mass index (BMI) [Ratio] 31.32 kg/m2 Oz Kincaid MD Work Phone: [facility] 02-25-2024 13:55-0400 Body weight 90.72 kg Oz Kincaid MD Work Phone: [facility] 02-25-2024 13:55-0400 Diastolic blood pressure 84 mm[Hg] Oz Kincaid MD Work Phone: [facility] 02-25-2024 13:55-0400 Heart rate 74 /min Oz Kincaid MD Work Phone: [facility] 02-25-2024 13:55-0400 Systolic blood pressure 130 mm[Hg] Oz Kincaid MD Work Phone: [facility] 02-14-2024 13:23-0400 Body height 170.18 cm Sandra Keita DO Work Phone: [facility] 02-14-2024 13:23-0400 Body weight 90.71 kg Sandra Keita DO Work Phone: [facility] 02-03-2024 11:56-0400 Body height 170.18 cm DO Sandra Keita Work Phone: [facility] 02-03-2024 11:56-0400 Body mass index (BMI) [Ratio] 31.6 kg/m2 DO Sandra Keita Work [facility] [facility] 02-03-2024 11:56-0400 Body weight 91.62 kg DO Sandra Keita Work Phone: [facility] 02-03-2024 11:56-0400 Diastolic blood pressure 68 mm[Hg] DO Sandra Keita Work Phone: [facility] 02-03-2024 11:56-0400 Heart rate 63 /min DO Sandra Debbie Work Phone: [facility] 02-03-2024 11:56-0400 Respiratory rate 18 /min DO Sandra Debbie Work Phone: [facility] 02-03-2024 11:56-0400 SaO2% (BldA) [Mass fraction] 98 % DO Sandra Debbie Work Phone: [facility] 02-03-2024 11:56-0400 Systolic blood pressure 100 mm[Hg] DO Sandra Debbie Work Phone: [facility] 01-15-2024 15:38-0400 Body height 170.18 cm DO Sandra Debbie Work Phone: [facility] 01-15-2024 15:38-0400 Body mass index (BMI) [Ratio] 31.3 kg/m2 DO Sandra Debbie Work Phone: [facility] 01-15-2024 15:38-0400 Body weight 90.77 kg DO Sandra Keita Work Phone: [facility] 01-07-2024 13:18-0400 Body height 170.2 cm Oz Kincaid MD Work Phone: [facility] 01-07-2024 13:18-0400 Body mass index (BMI) [Ratio] 31.32 kg/m2 Oz Kincaid MD Work Phone: [facility] 01-07-2024 13:18-0400 Body weight 90.72 kg Oz Kincaid MD Work Phone: [facility] 01-07-2024 13:18-0400 Diastolic blood pressure 74 mm[Hg] Oz Kincaid MD Work Phone: [facility] 01-07-2024 13:18-0400 Heart rate 62 /min Oz Kincaid MD Work Phone: [facility] 01-07-2024 13:18-0400 Systolic blood pressure 107 mm[Hg] Oz Kincaid MD Work Phone: [facility] 12-16-2023 10:40-0400 Body height 170.2 cm Roland Faust MD Work Phone: [facility] 12-16-2023 10:40-0400 Body mass index (BMI) [Ratio] 30.48 kg/m2 Roland Faust MD Work Phone: [facility] 12-16-2023 10:40-0400 Body weight 88.27 kg Roland Faust MD Work Phone: [facility] 12-16-2023 10:40-0400 Diastolic blood pressure 64 mm[Hg] Roland Faust MD Work Phone: [facility] 12-16-2023 10:40-0400 Heart rate 73 /min Roland Faust MD Work Phone: [facility] 12-16-2023 10:40-0400 Systolic blood pressure 102 mm[Hg] Roland Faust MD Work Phone: [facility] 11-18-2023 13:14-0400 Body height 170.18 cm DO Sandra Keita Work Phone: [facility] 11-18-2023 13:14-0400 Body mass index (BMI) [Ratio] 28.6 kg/m2 DO Sandra Keita Work Phone: [facility] 11-18-2023 13:14-0400 Body weight 83 kg DO Sandra Keita Work Phone: [facility] 11-18-2023 13:14-0400 Diastolic blood pressure 62 mm[Hg] DO Sandra Keita Work Phone: [facility] 11-18-2023 13:14-0400 Heart rate 54 /min DO Sandra Keita Work Phone: [facility] 11-18-2023 13:14-0400 Respiratory rate 18 /min DO Sandra Keita Work Phone: [facility] 11-18-2023 13:14-0400 SaO2% (BldA) [Mass fraction] 97 % DO Sandra Keita Work Phone: [facility] 11-18-2023 13:14-0400 Systolic blood pressure 96 mm[Hg] DO Sandra Keita Work Phone: [facility] 11-14-2023 15:07-0400 Body height 170.18 cm DO Sandra Keita Work Phone: [facility] 11-14-2023 15:07-0400 Body mass index (BMI) [Ratio] 28.5 kg/m2 DO Sandra Keita Work Phone: [facility] 11-14-2023 15:07-0400 Body weight 82.8 kg DO Sandra Keita Work Phone: [facility] 11-14-2023 15:07-0400 Diastolic blood pressure 72 mm[Hg] DO Sandra Keita Work Phone: [facility] 11-14-2023 15:07-0400 Heart rate 67 /min DO Sandra Keita Work Phone: [facility] 11-14-2023 15:07-0400 Respiratory rate 18 /min DO Sandra Keita Work Phone: [facility] 11-14-2023 15:07-0400 SaO2% (BldA) [Mass fraction] 97 % DO Sandra Keita Work Phone: [facility] 11-14-2023 15:07-0400 Systolic blood pressure 110 mm[Hg] DO Sandra Keita Work Phone: [facility] 11-13-2023 13:54-0400 Body height 170.2 cm Jonas Ch MD Work Phone: [facility] 11-13-2023 13:54-0400 Body mass index (BMI) [Ratio] 28.19 kg/m2 Jonas Ch MD Work Phone: [facility] 11-13-2023 13:54-0400 Body weight 81.65 kg Jonas Ch MD Work Phone: [facility] 11-13-2023 13:54-0400 Diastolic blood pressure 70 mm[Hg] Jonas Ch MD Work Phone: [facility] 11-13-2023 13:54-0400 Heart rate 87 /min Jonas Ch MD Work Phone: [facility] 11-13-2023 13:54-0400 Systolic blood pressure 108 mm[Hg] Jonas Ch MD Work Phone: [facility] 11-12-2023 16:12-0400 Diastolic blood pressure 83 mm[Hg] DO Sandra Keita Work Phone: [facility] 11-12-2023 16:12-0400 Heart rate 61 /min DO Sandra Keita Work Phone: [facility] 11-12-2023 16:12-0400 Respiratory rate 16 /min DO Sandra Keita Work Phone: [facility] 11-12-2023 16:12-0400 SaO2% (BldA) [Mass fraction] 96 % DO Sandra Keita Work Phone: [facility] 11-12-2023 16:12-0400 Systolic blood pressure 149 mm[Hg] DO Asndra Keita Work Phone: [facility] 11-12-2023 12:16-0400 Body temperature 97.5 [degF] DO Sandra Keita Work Phone: [facility] 11-12-2023 06:00-0400 Body weight 83.5 kg DO Sandra Keita Work Phone: [facility] 11-10-2023 08:23-0400 Body height 170.18 cm DO Sandra Keita Work Phone: [facility] 11-10-2023 05:05-0400 Diastolic blood pressure 67 mm[Hg] DO Sandra Keita Work Phone: [facility] 11-10-2023 05:05-0400 Heart rate 62 /min DO Sandra Keita Work Phone: [facility] 11-10-2023 05:05-0400 Respiratory rate 18 /min DO Sandra Keita Work Phone: [facility] 11-10-2023 05:05-0400 SaO2% (BldA) [Mass fraction] 100 % DO Sandra Keita Work Phone: [facility] 11-10-2023 05:05-0400 Systolic blood pressure 144 mm[Hg] DO Sandra Keita Work Phone: [facility] 11-10-2023 03:44-0400 Body temperature 98.1 [degF] DO Sandra Keita Work Phone: [facility] 11-09-2023 22:16-0400 Body height 170.18 cm DO Sandra Keita Work Phone: [facility] 11-09-2023 22:16-0400 Body weight 81.64 kg DO Sandra Keita Work Phone: [facility] 11-05-2023 12:36-0400 SaO2% (BldA) [Mass fraction] 100 % DO Sandra Keita Work Phone: [facility] 10-07-2023 09:48-0400 Body height 170.2 cm Jonas Ch MD Work Phone: [facility] 10-07-2023 09:48-0400 Body mass index (BMI) [Ratio] 28.19 kg/m2 Jonas Ch MD Work Phone: [facility] 10-07-2023 09:48-0400 Body weight 81.65 kg Jonas Ch MD Work Phone: [facility] 10-07-2023 09:48-0400 Diastolic blood pressure 90 mm[Hg] Jnoas Ch MD Work Phone: [facility] 10-07-2023 09:48-0400 Heart rate 92 /min Jonas Ch MD Work Phone: [facility] 10-07-2023 09:48-0400 Systolic blood pressure 114 mm[Hg] Jonas Ch MD Work Phone: [facility] 09-17-2023 13:02-0400 Body height 167.64 cm DO Sandra Keita Work Phone: [facility] 09-17-2023 13:02-0400 Body mass index (BMI) [Ratio] 29 kg/m2 DO Sandra Keita Work Phone: [facility] 09-17-2023 13:02-0400 Body weight 81.67 kg DO Sandra Keita Work Phone: [facility] 09-17-2023 13:02-0400 Diastolic blood pressure 64 mm[Hg] DO Sandra Keita Work Phone: [facility] 09-17-2023 13:02-0400 Heart rate 117 /min DO Sandra Keita Work Phone: [facility] 09-17-2023 13:02-0400 Respiratory rate 18 /min DO Sandra Keita Work Phone: [facility] 09-17-2023 13:02-0400 SaO2% (BldA) [Mass fraction] 99 % DO Sandra Keita Work Phone: [facility] 09-17-2023 13:02-0400 Systolic blood pressure 92 mm[Hg] DO Sandra Keita Work Phone: [facility] 09-14-2023 16:11-0400 Body temperature 97.7 [degF] DO Sandra Keita Work Phone: [facility] 09-14-2023 16:11-0400 Diastolic blood pressure 70 mm[Hg] DO Sandra Keita Work Phone: [facility] 09-14-2023 16:11-0400 Heart rate 74 /min DO Sandra Keita Work Phone: [facility] 09-14-2023 16:11-0400 Respiratory rate 17 /min DO Sandra Keita Work Phone: [facility] 09-14-2023 16:11-0400 SaO2% (BldA) [Mass fraction] 95 % DO Sandra Keita Work Phone: [facility] 09-14-2023 16:11-0400 Systolic blood pressure 115 mm[Hg] DO Sandra Keita Work Phone: [facility] 09-14-2023 06:00-0400 Body weight 83.2 kg DO Sandra Keita Work Phone: [facility] 09-13-2023 12:41-0400 Body height 170.18 cm DO Sandra Debbie Work Phone: [facility] 09-12-2023 13:58-0400 Body height 167.64 cm DO Sandra Keita Work Phone: [facility] 09-12-2023 13:58-0400 Body mass index (BMI) [Ratio] 29 kg/m2 DO Sandra Keita Work Phone: [facility] 09-12-2023 13:58-0400 Body weight 81.64 kg DO Sandra Debbie Work Phone: [facility] 09-12-2023 13:58-0400 Diastolic blood pressure 81 mm[Hg] DO Sandra Debbie Work Phone: [facility] 09-12-2023 13:58-0400 Heart rate 135 /min DO Sandra Debbie Work Phone: [facility] 09-12-2023 13:58-0400 Respiratory rate 18 /min DO Sandra Debbie Work Phone: [facility] 09-12-2023 13:58-0400 SaO2% (BldA) [Mass fraction] 97 % DO Snadra Debbie Work Phone: [facility] 09-12-2023 13:58-0400 Systolic blood pressure 112 mm[Hg] DO Sandra Debbie Work Phone: [facility] 07-17-2023 11:43-0400 Body height 167.64 cm [facility] 07-17-2023 11:43-0400 Body mass index (BMI) [Ratio] 28.8 kg/m2 [facility] 07-17-2023 11:43-0400 Body temperature 97.8 [degF] [facility] 07-17-2023 11:43-0400 Body weight 81.19 kg [facility] 07-17-2023 11:43-0400 Diastolic blood pressure 64 mm[Hg] [facility] 07-17-2023 11:43-0400 Heart rate 78 /min [facility] 07-17-2023 11:43-0400 Respiratory rate 16 /min [facility] 07-17-2023 11:43-0400 SaO2% (BldA) [Mass fraction] 98 % [facility] 07-17-2023 11:43-0400 Systolic blood pressure 112 mm[Hg] [facility] 06-19-2023 15:53-0500 Body height 167.64 cm [facility] 06-19-2023 15:53-0500 Body mass index (BMI) [Ratio] 28.9 kg/m2 [facility] 06-19-2023 15:53-0500 Body weight 81.33 kg [facility] 06-19-2023 15:53-0500 Diastolic blood pressure 68 mm[Hg] [facility] 06-19-2023 15:53-0500 Heart rate 95 /min [facility] 06-19-2023 15:53-0500 Respiratory rate 18 /min [facility] 06-19-2023 15:53-0500 SaO2% (BldA) [Mass fraction] 97 % [facility] 06-19-2023 15:53-0500 Systolic blood pressure 92 mm[Hg] [facility] 06-12-2023 15:38-0500 Body height 167.64 cm [facility] 06-12-2023 15:38-0500 Body mass index (BMI) [Ratio] 28.5 kg/m2 [facility] 06-12-2023 15:38-0500 Body weight 80.28 kg [facility] 06-12-2023 15:38-0500 Diastolic blood pressure 72 mm[Hg] [facility] 06-12-2023 15:38-0500 Heart rate 95 /min [facility] 06-12-2023 15:38-0500 Respiratory rate 18 /min [facility] 06-12-2023 15:38-0500 SaO2% (BldA) [Mass fraction] 99 % [facility] 06-12-2023 15:38-0500 Systolic blood pressure 111 mm[Hg] [facility] 03-04-2023 15:00-0500 Body height 167.64 cm Sandra Keita Other [employer] Other 03-04-2023 15:00-0500 Body mass index (BMI) [Ratio] 29.97 kg/m2 Sandra Keita Other [employer] Other 03-04-2023 15:00-0500 Body weight 84.23 kg Sandra Keita Other [employer] Other 03-04-2023 15:00-0500 Diastolic blood pressure 68 mm[Hg] Sandra Keita Other [employer] Other 03-04-2023 15:00-0500 Respiratory rate 18 /min Sandra Keita Other [employer] Other 03-04-2023 15:00-0500 SaO2% (BldA) [Mass fraction] 96 % Sandra Keita Other [employer] Other 03-04-2023 15:00-0500 Systolic blood pressure 98 mm[Hg] Sandra Keita Other [employer] Other 01-07-2023 14:00-0400 Body height 167.64 cm Tondra Mapus Other [employer] Other 01-07-2023 14:00-0400 Body mass index (BMI) [Ratio] 30.03 kg/m2 Tondra Mapus Other [employer] Other 01-07-2023 14:00-0400 Body weight 84.41 kg Tondra Mapus Other [employer] Other 01-07-2023 14:00-0400 Diastolic blood pressure 68 mm[Hg] Tondra Mapus Other [employer] Other 01-07-2023 14:00-0400 Respiratory rate 18 /min Tondra Mapus Other [employer] Other 01-07-2023 14:00-0400 SaO2% (BldA) [Mass fraction] 98 % Tondra Mapus Other [employer] Other 01-07-2023 14:00-0400 Systolic blood pressure 102 mm[Hg] Tondra Mapus Other [employer] Other 01-02-2023 11:00-0400 Body height 167.64 cm Brayden Noble Other [employer] Other 01-02-2023 11:00-0400 Body mass index (BMI) [Ratio] 29.7 kg/m2 Bryaden Noble Other [employer] Other 01-02-2023 11:00-0400 Body weight 83.46 kg Brayden Noble Other [employer] Other 01-02-2023 11:00-0400 Diastolic blood pressure 78 mm[Hg] Brayden Noble Other [employer] Other 01-02-2023 11:00-0400 Systolic blood pressure 120 mm[Hg] Brayden Noble Other [employer] Other 11-28-2022 15:00-0400 Body height 167.64 cm Sandra Keita Other [employer] Other 11-28-2022 15:00-0400 Body mass index (BMI) [Ratio] 29.58 kg/m2 Sandra Keita Other [employer] Other 11-28-2022 15:00-0400 Body weight 83.14 kg Sandra Debbie Other [employer] Other 11-28-2022 15:00-0400 Diastolic blood pressure 72 mm[Hg] Sandra Keita Other [employer] Other 11-28-2022 15:00-0400 Respiratory rate 20 /min Sandra Keita Other [employer] Other 11-28-2022 15:00-0400 SaO2% (BldA) [Mass fraction] 99 % Sandra Keita Other [employer] Other 11-28-2022 15:00-0400 Systolic blood pressure 115 mm[Hg] Sandra Keita Other [employer] Other 09-27-2022 14:15-0400 Body height 167.64 cm Tondra Mapus Other [employer] Other 09-27-2022 14:15-0400 Body mass index (BMI) [Ratio] 29.53 kg/m2 Tondra Mapus Other [employer] Other 09-27-2022 14:15-0400 Body weight 83.01 kg Tondra Mapus Other [employer] Other 09-27-2022 14:15-0400 Diastolic blood pressure 66 mm[Hg] Tondra Mapus Other [employer] Other 09-27-2022 14:15-0400 Respiratory rate 18 /min Tondra Mapus Other [employer] Other 09-27-2022 14:15-0400 SaO2% (BldA) [Mass fraction] 97 % Tondra Mapus Other [employer] Other 09-27-2022 14:15-0400 Systolic blood pressure 100 mm[Hg] Tondra Mapus Other [employer] Other 08-09-2022 16:15-0400 Body height 167.64 cm Sandra Keita Other [employer] Other 08-09-2022 16:15-0400 Body mass index (BMI) [Ratio] 29.86 kg/m2 Sandra Keita Other [employer] Other 08-09-2022 16:15-0400 Body weight 83.92 kg Sandra Debbie Other [employer] Other 08-09-2022 16:15-0400 Diastolic blood pressure 74 mm[Hg] Sandra Debbie Other [employer] Other 08-09-2022 16:15-0400 Respiratory rate 18 /min Sandrajacob Keita Other [employer] Other 08-09-2022 16:15-0400 SaO2% (BldA) [Mass fraction] 97 % Sandra Debbie Other [employer] Other 08-09-2022 16:15-0400 Systolic blood pressure 118 mm[Hg] Sandra Keita Other [employer] Other 06-18-2022 15:30-0500 Body height 167.64 cm Tondra Mapus Other [employer] Other 06-18-2022 15:30-0500 Body mass index (BMI) [Ratio] 35.34 kg/m2 Tondra Mapus Other [employer] Other 06-18-2022 15:30-0500 Body weight 99.34 kg Tondra Mapus Other [employer] Other 06-18-2022 15:30-0500 Diastolic blood pressure 72 mm[Hg] Tondra Mapus Other [employer] Other 06-18-2022 15:30-0500 Respiratory rate 18 /min Tondra Mapus Other [employer] Other 06-18-2022 15:30-0500 SaO2% (BldA) [Mass fraction] 97 % Tondra Mapus Other [employer] Other 06-18-2022 15:30-0500 Systolic blood pressure 108 mm[Hg] Tondra Mapus Other [employer] Other 01-09-2022 14:00-0400 Body height 167.64 cm Tondra Mapus Other [employer] Other 01-09-2022 14:00-0400 Body mass index (BMI) [Ratio] 28.73 kg/m2 Tondra Mapus Other [employer] Other 01-09-2022 14:00-0400 Body weight 80.74 kg Tondra Mapus Other [employer] Other 01-09-2022 14:00-0400 Diastolic blood pressure 79 mm[Hg] Tondra Mapus Other [employer] Other 01-09-2022 14:00-0400 Respiratory rate 16 /min Tondra Mapus Other [employer] Other 01-09-2022 14:00-0400 SaO2% (BldA) [Mass fraction] 97 % Tondra Mapus Other [employer] Other 01-09-2022 14:00-0400 Systolic blood pressure 127 mm[Hg] Tondra Mapus Other [employer] Other 12-17-2021 08:23-0400 Diastolic blood pressure 63 mm[Hg] DO Tray Jer [facility] 12-17-2021 08:23-0400 Heart rate 82 /min DO Tray Randle [facility] 12-17-2021 08:23-0400 Respiratory rate 18 /min DO Tray Randle [facility] 12-17-2021 08:23-0400 SaO2% (BldA) [Mass fraction] 98 [facility] 08:23-0400 Systolic blood pressure 135 mm[Hg] [facility] 12-17-2021 05:29-0400 Body height 170.18 cm [email or web address] 12-17-2021 05:29-0400 Body temperature 97.4 [degF] DO Tray Randle [facility] 12-17-2021 05:29-0400 Body weight 82.55 kg [email or web address] 12-14-2021 06:58-0400 Body height 170.18 cm [email or web address] 12-14-2021 06:58-0400 Body mass index (BMI) [Ratio] 29.2 kg/m2 DO Trayumu Randle [facility] 12-14-2021 06:58-0400 Body weight 84.8 kg [email or web address] 12-13-2021 11:06-0400 Body temperature 97.7 [degF] [facility] 11:06-0400 Diastolic blood pressure 67 mm[Hg] DO Trayumu Randle [facility] 12-13-2021 11:06-0400 Heart rate 88 /min DO Trayumu Randle [facility] 12-13-2021 11:06-0400 Respiratory rate 16 /min DO Tray Randle [facility] 12-13-2021 11:06-0400 SaO2% (BldA) [Mass fraction] 93 % DO Trayumu Randle [facility] 12-13-2021 11:06-0400 Systolic blood pressure 119 mm[Hg] DO Trayumu Randle [facility] 12-13-2021 08:00-0400 Inhaled oxygen flow rate 3 L/min [facility] 10-12-2021 11:00-0400 Body height 167.64 cm Crispin Looney Other [employer] Other 10-12-2021 11:00-0400 Body mass index (BMI) [Ratio] 29.81 kg/m2 Crispin Looney Other [employer] Other 10-12-2021 11:00-0400 Body weight 83.78 kg Crispin Looney Other [employer] Other 10-12-2021 11:00-0400 Diastolic blood pressure 68 mm[Hg] Crispin Looney Other [employer] Other 10-12-2021 11:00-0400 Respiratory rate 18 /min Crispin Looney Other [employer] Other 10-12-2021 11:00-0400 SaO2% (BldA) [Mass fraction] 97 % Crispin Looney Other [employer] Other 10-12-2021 11:00-0400 Systolic blood pressure 97 mm[Hg] Crispin Looney Other [employer] Other 07-10-2021 14:30-0400 Body height 167.64 cm Tondra Mapus Other [employer] Other 07-10-2021 14:30-0400 Body mass index (BMI) [Ratio] 30.34 kg/m2 Tondra Mapus Other [employer] Other 07-10-2021 14:30-0400 Body weight 85.28 kg Tondra Mapus Other [employer] Other 07-10-2021 14:30-0400 Diastolic blood pressure 60 mm[Hg] Tondra Mapus Other [employer] Other 07-10-2021 14:30-0400 Respiratory rate 16 /min Tondra Mapus Other [employer] Other 07-10-2021 14:30-0400 SaO2% (BldA) [Mass fraction] 97 % Tondra Pattersonus Other [employer] Other 07-10-2021 14:30-0400 Systolic blood pressure 89 mm[Hg] Tona Leonardous Other [employer] Other 07-03-2021 16:00-0500 Body height 167.64 cm Ruben Avendañoban Other [employer] Other 07-03-2021 16:00-0500 Body mass index (BMI) [Ratio] 30.5 kg/m2 Ruben Avendañoban Other [employer] Other 07-03-2021 16:00-0500 Body temperature 95.5 [degF] Ruben Avendañoban Other [employer] Other 07-03-2021 16:00-0500 Body weight 85.73 kg Ruben Avendañoban Other [employer] Other 07-03-2021 16:00-0500 Diastolic blood pressure 68 mm[Hg] Gaudencioal Chaban Other [employer] Other 07-03-2021 16:00-0500 SaO2% (BldA) [Mass fraction] 99 % Gaudencioal Katerynaban Other [employer] Other 07-03-2021 16:00-0500 Systolic blood pressure 94 mm[Hg] Gaudencioal Chaban Other [employer] Other 05-08-2021 14:15-0500 Body height 167.64 cm Crispin Looney Other [employer] Other 05-08-2021 14:15-0500 Body mass index (BMI) [Ratio] 30.87 kg/m2 Crispin Looney Other [employer] Other 05-08-2021 14:15-0500 Body weight 86.77 kg Crispin Looney Other [employer] Other 05-08-2021 14:15-0500 Diastolic blood pressure 58 mm[Hg] Crispin Looney Other [employer] Other 05-08-2021 14:15-0500 Respiratory rate 20 /min Crispin Looney Other [employer] Other 05-08-2021 14:15-0500 SaO2% (BldA) [Mass fraction] 98 % Crispin Looney Other [employer] Other 05-08-2021 14:15-0500 Systolic blood pressure 102 mm[Hg] Crispin Looney Other [employer] Other 04-03-2021 15:00-0500 Body height 167.64 cm Tray Nava Other [employer] Other 04-03-2021 15:00-0500 Body mass index (BMI) [Ratio] 30.99 kg/m2 Tray Nava Other [employer] Other 04-03-2021 15:00-0500 Body temperature 98.3 [degF] Tray Nava Other [employer] Other 04-03-2021 15:00-0500 Body weight 87.09 kg Tray Ceballospratibha Other [employer] Other 04-03-2021 15:00-0500 Diastolic blood pressure 68 mm[Hg] Tray Ceballospratibha Other [employer] Other 04-03-2021 15:00-0500 SaO2% (BldA) [Mass fraction] 93 % Tray Ceballospratibha Other [employer] Other 04-03-2021 15:00-0500 Systolic blood pressure 110 mm[Hg] Tray Ceballospratibha Other [employer] Other 03-27-2021 15:00-0500 Body height 167.64 cm Tondra Mapus Other [employer] Other 03-27-2021 15:00-0500 Body mass index (BMI) [Ratio] 30.99 kg/m2 Tondra Mapus Other [employer] Other 03-27-2021 15:00-0500 Body weight 87.09 kg Tondra Mapus Other [employer] Other 03-27-2021 15:00-0500 Diastolic blood pressure 75 mm[Hg] Tondra Mapus Other [employer] Other 03-27-2021 15:00-0500 Respiratory rate 20 /min Tondra Mapus Other [employer] Other 03-27-2021 15:00-0500 SaO2% (BldA) [Mass fraction] 97 % Tondra Mapus Other [employer] Other 03-27-2021 15:00-0500 Systolic blood pressure 124 mm[Hg] Angelique Russell Other [employer] Other 02-27-2021 16:00-0400 Body height 167.64 cm Tray Brandy Other [employer] Other 02-27-2021 16:00-0400 Body mass index (BMI) [Ratio] 30.66 kg/m2 Tray Brandy Other [employer] Other 02-27-2021 16:00-0400 Body weight 86.18 kg Tray Brandy Other [employer] Other 02-27-2021 16:00-0400 Diastolic blood pressure 76 mm[Hg] Tray Nava Other [employer] Other 02-27-2021 16:00-0400 Systolic blood pressure 123 mm[Hg] Tray Brandy Other [employer] Other 08-27-2017 12:01-0400 Body height 170.18 cm DO Jonas Yoder Work Phone: [facility] Encounters Encounter Date Encounter Type Care Provider Facility Start: 01-12-2025 End: 01-12-2025 ambulatory Shantel Norton APRN Work Phone: [facility] Work Phone: Start: 01-12-2025 End: 01-12-2025 Patient encounter procedure Shantel Norton APRN AUTO CLAIM REPRESENTATIVE -[facility] Work Phone: Start: 01-05-2025 End: 01-05-2025 ambulatory Shantel Norton APRN Work Phone: [facility] Work Phone: Start: 01-05-2025 End: 01-05-2025 Patient encounter procedure Angelique Russell PRODUCTION SUPPORT ANALYST-C -[facility] Work Phone: Start: 12-31-2024 End: 12-31-2024 ambulatory OZ KINCAID Not Available Start: 12-31-2024 Non-patient / Non-visit Samm disla MD -[facility] Work Phone: Start: 12-30-2024 End: 12-30-2024 Office outpatient visit 15 minutes Roland Faust MD Work Phone: [facility] Comment on above: Typical atrial flutt er (Multi) (Primary Dx); Nonischemic cardiomyopathy (Multi); Hypertension, unspecified type; Hypercholesteremia; Obesity (BMI 30-39.9); Current smoker Start: 12-30-2024 End: 12-30-2024 ambulatory [facility] Ambulatory Start: 12-24-2024 End: 12-24-2024 Patient encounter procedure Samm Medina MD -Sleep Lab Work Phone: Start: 12-24-2024 End: 12-24-2024 ambulatory Sandra A Debbie DO Work Phone: [facility] Work Phone: Start: 12-18-2024 End: 12-18-2024 Patient encounter procedure Oz Kincaid MD Work Phone: [facility] Neu[facility] Comment on above: Numbness (Primary Dx ); Paresthesias; Pain in both lower extremities; Lumbosacral radiculopathy at L5 Start: 12-18-2024 End: 12-18-2024 ambulatory OZ KINCAID Not Available Start: 12-15-2024 End: 12-15-2024 ambulatory Sandra A Keita DO Work Phone: [facility] Work Phone: Start: 12-15-2024 End: 12-15-2024 Patient encounter procedure Shantel Norton FRUIT DRYER AUTO CLAIM REPRESENTATIVE -[facility] Work Phone: Start: 12-11-2024 End: 12-11-2024 ambulatory OZ KINCAID Not Available Start: 12-11-2024 End: 12-11-2024 Patient encounter procedure Oz Kincaid MD Work Phone: [facility] Neurology Comment on above: Hand weakness (Prima ry Dx); Carpal tunnel syndrome, bilateral Start: 11-23-2024 End: 11-23-2024 Office outpatient visit 15 minutes Karl Fritz DPM Work Phone: [facility] Comment on above: Ulcer of right foot with fat layer exposed (HCC) (Primary Dx); 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); Abscess of right foot; At increased risk for emergency hospital admission Start: 11-23-2024 End: 11-23-2024 ambulatory KARL FRITZ Not Available Start: 11-23-2024 End: 11-23-2024 Bamboo flowsheet Karl Fritz DPM Work Phone: [facility] Start: 11-23-2024 End: 11-23-2024 Bamsonnyo flowsheet Karl Fritz DPM Work Phone: [facility] Start: 11-16-2024 End: 11-16-2024 Departed Referred Karl Fritz DPM -Lab [facility] Work Phone: Start: 11-16-2024 End: 11-16-2024 Office outpatient visit 25 minutes Karl Fritz DPM Work Phone: [facility] Comment on above: Ulcer of right foot with fat layer exposed (HCC) (Primary Dx); 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); Cellulitis of right foot; Deformity of toe, right Start: 11-16-2024 End: 11-16-2024 ambulatory Sandra Keita DO Work Phone: [facility] Work Phone: Start: 11-16-2024 End: 11-17-2024 External Result Encounter Karl Fritz DPM Work Phone: [facility] External Department Unsolicited Start: 11-16-2024 End: 11-17-2024 External Result Encounter Karl Fritz DPM Work Phone: [facility] External Department Unsolicited Start: 11-09-2024 End: 11-09-2024 ambulatory Halie Marc MD Facility:[facility] Start: 10-31-2024 End: 11-02-2024 Refill Oz Kincaid MD Work Phone: [place] [id number] Comment on above: Neurogenic pain Start: 10-21-2024 End: 10-21-2024 Telephone encounter Oz Kincaid MD Work Phone: [facility] Start: 10-20-2024 End: 10-20-2024 Bamboo flowsheet Karl Fritz DPM Work Phone: [facility] Start: 10-20-2024 End: 10-20-2024 Bamboo flowsheet Karl Fritz DPM Work Phone: [facility] Start: 10-20-2024 End: 10-20-2024 Office outpatient visit 25 minutes Karl Fritz DPM Work Phone: [facility] Comment on above: Ulcer of right foot with fat layer exposed (HCC) (Primary Dx); 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); Blister of right foot, initial encounter; Deformity, foot, right Start: 10-20-2024 End: 10-20-2024 ambulatory KARL FRITZ Not Available Start: 10-07-2024 End: 10-07-2024 Telephone encounter Oz Kincaid MD Work Phone: [facility] 111 Start: 10-06-2024 End: 10-06-2024 Bamboo flowsheet Oz Kincaid MD Work Phone: [facility] Start: 10-06-2024 End: 10-06-2024 Bamboo flowsheet Oz Kincaid MD Work Phone: [facility] Start: 10-06-2024 End: 10-06-2024 Office outpatient visit 25 minutes Oz Kincaid MD Work Phone: [facility] B Comment on above: Weakness of both low er extremities (Primary Dx); Carpal tunnel syndrome, bilateral; Cognitive decline; Cervical paraspinal muscle spasm; B12 deficiency; Guyon syndrome, unspecified laterality; Numbness; Leg pain, left; Leg pain, right; Bilateral leg weakness Start: 10-06-2024 End: 10-06-2024 ambulatory OZ KINCAID Not Available Start: 10-05-2024 End: 10-05-2024 ambulatory Halie Marc MD Facility:[facility] Start: 10-01-2024 End: 10-01-2024 ambulatory Sandra Rebecca Keita DO Work Phone: [facility] Work Phone: Start: 10-01-2024 End: 10-01-2024 Patient encounter procedure Sandra Debbie DO Work Phone: [facility] Sleep Lab Work Phone: Start: 09-10-2024 Non-patient / Non-visit Sandra Debbie DO Work Phone: [facility] Gastro Work Phone: Start: 09-10-2024 End: 09-10-2024 Admission to same day surgery center Sandrajacob Keita DO Work Phone: [facility]-Digestive Health Work Phone: Start: 09-10-2024 End: 09-10-2024 ambulatory Sandra Rebecca Keita DO Work Phone: [facility] Work Phone: Start: 09-07-2024 End: 09-07-2024 ambulatory Sandra A Keita DO Work Phone: [facility] Work Phone: Start: 09-07-2024 End: 09-07-2024 Patient encounter procedure Sandra Keita DO Work Phone: [facility] Physician [facility] Neurosurgery Work Phone: Start: 08-25-2024 End: 08-25-2024 ambulatory Sandra A Keita DO Work Phone: [facility] Work Phone: Start: 08-25-2024 End: 08-25-2024 Patient encounter procedure Sandra Keita DO Work Phone: [facility] Work Phone: Start: 08-20-2024 End: 08-20-2024 ambulatory Sandra A Keita DO Work Phone: [facility] Work Phone: Start: 08-20-2024 End: 08-20-2024 Patient encounter procedure Sandra Keita DO Work Phone: [facility] Physician [facility] Work Phone: Start: 07-22-2024 End: 07-22-2024 Patient encounter procedure Sandra Keita DO Work Phone: [facility] Health Vascular Surg Work Phone: Start: 07-22-2024 End: 07-22-2024 ambulatory Sandra A Keita DO Work Phone: [facility] Work Phone: Start: 07-21-2024 End: 07-21-2024 Office outpatient visit 15 minutes Oz Kincaid MD Work Phone: [facility] Comment on above: Cognitive decline (P rimary Dx); Cervical paraspinal muscle spasm; B12 deficiency; Carpal tunnel syndrome, bilateral; Guyon syndrome, unspecified laterality; Neurogenic pain Start: 07-21-2024 End: 07-21-2024 ambulatory OZ KINCAID Not Available Start: 07-06-2024 End: 07-06-2024 ambulatory Sandra Keita DO Work Phone: [facility] Work Phone: Start: 07-06-2024 End: 07-06-2024 Departed Referred Sandra Keita DO Work Phone: [facility]-LAB Path Spec Ac Hosp Start: 06-26-2024 End: 06-29-2024 External Result Encounter Nataliya Jane NP Other Phone: [facility] External Department Unsolicited Start: 06-26-2024 End: 06-29-2024 External Result Encounter Nataliya Jane NP Other Phone: [facility] External Department Unsolicited Start: 06-26-2024 Registered Recurring Sandra terrazas DO Work Phone: [facility]-Cancer Center Acute Work Phone: Start: 06-26-2024 End: 06-26-2024 Patient encounter procedure Sandra Keita DO Work Phone: [facility]-Lab [facility] [place] Work Phone: Start: 06-26-2024 End: 06-26-2024 ambulatory Sandrajacob Keita DO Work Phone: [facility] Work Phone: Start: 06-26-2024 End: 06-26-2024 Office outpatient visit 25 minutes Roland Faust MD Work Phone: [facility] Comment on above: Typical atrial flutt er (Multi) (Primary Dx); Nonischemic cardiomyopathy (Multi); Hypercholesteremia; Hypertension, unspecified type; BMI 32.0-32.9,adult; Current smoker Start: 06-26-2024 End: 06-26-2024 ambulatory [facility] Ambulatory Start: 06-04-2024 Non-patient / Non-visit Sandra Keita DO Work Phone[facility] Work Phone: Start: 05-25-2024 End: 05-25-2024 Patient encounter procedure Sandra Keita DO Work Phone: [facility]-MRI Main [place] Work Phone: Start: 05-25-2024 End: 05-25-2024 ambulatory Sandra A Keita DO Work Phone: [facility] Work Phone: Start: 05-19-2024 End: 05-19-2024 Telephone encounter Oz Kincaid MD Work Phone: [facility] 111 Start: 05-07-2024 End: 05-07-2024 ambulatory Sandra A Keita DO Work Phone: [facility] Work Phone: Start: 05-07-2024 End: 05-07-2024 Patient encounter procedure Sandra Keita DO Work Phone: [facility] Work Phone: Start: 04-28-2024 End: 04-30-2024 Evaluation and management of inpatient Sandra Keita DO Work Phone: [facility] [place] [facility] Work Phone: Start: 04-28-2024 End: 04-28-2024 ambulatory Sandra A Keita DO Work Phone: [facility] Work Phone: Start: 04-28-2024 End: 04-28-2024 Patient encounter procedure Sandra Keita DO Work Phone: [facility] Work Phone: Start: 04-28-2024 End: 04-28-2024 Patient encounter procedure Sandra Keita DO Work Phone: [facility] Ambulatory Work Phone: Start: 04-27-2024 End: 04-27-2024 Emergency department patient visit Sandra Keita DO Work Phone: [facility]-Emergency Room Work Phone: Start: 04-14-2024 End: 04-14-2024 External Result Encounter Nataliya Best Lucinda MANAGER MEDIA Work Phone: [facility] External Department Unsolicited Start: 04-14-2024 End: 04-14-2024 External Result Encounter Nataliya Best Lucinda MANAGER MEDIA Work Phone: [facility] External Department Unsolicited Start: 04-14-2024 End: 04-14-2024 Patient encounter procedure Sandra Keita DO Work Phone: [facility] Ambulatory Work Phone: Start: 04-08-2024 End: 04-08-2024 Patient encounter procedure Karl Fritz DPM Work Phone: [facility] Comment on above: Ulcer of [...] 15 minutes Oz Kincaid MD Work Phone: [facility] Comment on above: Cognitive decline (P rimary Dx); B12 deficiency; Neurogenic pain; Carpal tunnel syndrome, bilateral; Cervical paraspinal muscle spasm; Guyon syndrome, unspecified laterality; Granulocytosis Start: 04-07-2024 End: 04-07-2024 ambulatory OZ KINCAID Not Available Start: 03-25-2024 End: 03-25-2024 ambulatory [facility] Ambulatory Start: 03-25-2024 End: 03-25-2024 Office outpatient visit 10 minutes Roland Faust MD Work Phone: [facility] Comment on above: Hypertension, unspec ified type; Typical atrial flutter (Multi) Start: 02-25-2024 End: 02-25-2024 Office outpatient visit 25 minutes Oz Kincaid MD Work Phone: [facility] Comment on above: Cognitive [...] Start: 02-14-2024 End: 02-14-2024 ambulatory Sandra Keita Facility:[facility] Start: 02-14-2024 End: 02-14-2024 Departed Referred Sandra Keita DO Work Phone: [facility]-Digestive Health Work Phone: Start: 02-10-2024 End: 02-10-2024 Bamboo flowsheet Karl Fritz DPM Work Phone: [facility] Start: 02-10-2024 End: 02-10-2024 Bamboo flowsheet Karl Fritz DPM Work Phone: [facility] Start: 02-10-2024 End: 02-10-2024 Office outpatient visit 15 minutes Karl Fritz DPM Work Phone: [facility] Comment on above: Ulcer of right foot, limited to breakdown of skin (CMS/HCC) (Primary Dx); Blister of right foot, subsequent encounter; 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); Ulcer of right foot with fat layer exposed (CMS/HCC) Start: 02-10-2024 End: 02-10-2024 ambulatory KARL FRITZ Not Available Start: 02-03-2024 End: 02-03-2024 ambulatory DO Sandra Keita Work Phone: [facility] Work Phone: Start: 02-03-2024 End: 02-03-2024 Patient encounter procedure DO Sandra Keita Work Phone: [facility] Work Phone: Start: 01-27-2024 End: 01-27-2024 Bamboo flowsheet Karl Fritz DPM Work Phone: [facility] Start: 01-27-2024 End: 01-27-2024 Bamboo flowsheet Karl Fritz DPM Work Phone: [facility] Start: 01-27-2024 End: 01-27-2024 Office outpatient visit 15 minutes Karl Fritz DPM Work Phone: [facility] Comment on above: Ulcer of right foot, limited to breakdown of skin (CMS/HCC) (Primary Dx); Blister of right foot, subsequent encounter; 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) Start: 01-27-2024 End: 01-27-2024 ambulatory KARL FRITZ Not Available Start: 01-21-2024 End: 01-21-2024 Bamboo flowsheet Karl Fritz DPM Work Phone: [facility] Start: 01-21-2024 End: 01-21-2024 Bamboo flowsheet Karl Fritz DPM Work Phone: [facility] Start: 01-21-2024 End: 01-21-2024 Office outpatient visit 15 minutes Karl Fritz DPM Work Phone: [facility] Comment on above: Ulcer of right foot, limited to breakdown of skin (CMS/HCC) (Primary Dx); Blister of right foot, initial encounter; 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) Start: 01-21-2024 End: 01-21-2024 ambulatory KARL FRITZ Not Available Start: 01-15-2024 End: 01-15-2024 ambulatory DO Sandra Keita Work Phone: [facility] Work Phone: Start: 01-15-2024 End: 01-15-2024 Patient encounter procedure DO Sandra Keita Work Phone: [facility] Neurosurgery Work Phone: Start: 01-08-2024 End: 01-10-2024 Telephone encounter Oz Kincaid MD Work Phone: [facility] 111 Start: 01-07-2024 End: 01-07-2024 Bamboo flowsheet Karl Fritz DPM Work Phone: [facility] Start: 01-07-2024 End: 01-07-2024 Bamboo flowsheet Karl Fritz DPM Work Phone: [facility] Start: 01-07-2024 End: 01-07-2024 Office outpatient visit 25 minutes Oz Kincaid MD Work Phone: [facility] Comment on above: Lumbosacral radiculo mary jane at S1 (Primary Dx); Neurogenic pain; Cervical paraspinal muscle spasm; Lumbar paraspinal muscle spasm; Carpal tunnel syndrome, bilateral; B12 deficiency Start: 01-07-2024 End: 01-07-2024 Departed Referred DO Sandra Keita Work Phone: [facility]-Lab [facility] [place] Work Phone: Start: 01-07-2024 End: 01-07-2024 Office outpatient visit 25 minutes Karl Fritz DPM Work Phone: [facility] Comment on above: Ulcer of right foot, limited to breakdown of skin (CMS/HCC) (Primary Dx); Cellulitis of right foot Start: 01-07-2024 End: 01-07-2024 ambulatory DO Sandra A Keita Work Phone: [facility] Work Phone: Start: 01-06-2024 End: 01-06-2024 Patient encounter procedure DO Sandra Keita Work Phone: [facility]-Ultrasound [facility] [place] Work Phone: Start: 01-06-2024 End: 01-06-2024 ambulatory DO Sandra A Keita Work Phone: [facility] Work Phone: Start: 01-03-2024 End: 01-03-2024 Clinical Support Oz Kincaid MD Work Phone: [facility] Comment on above: Carpal tunnel syndro me, bilateral (Primary Dx) Start: 01-03-2024 End: 01-03-2024 Bamboo flowsheet Oz Kincaid MD Work Phone: [facility] Start: 01-03-2024 End: 01-03-2024 Bamboo flowsheet Oz Kincaid MD Work Phone: [facility] Start: 12-17-2023 End: 12-17-2023 ambulatory DO Sandra A Keita Work Phone: [facility] Work Phone: Start: 12-17-2023 End: 12-17-2023 Patient encounter procedure DO Sandra Keita Work Phone: [facility]-MRI [address] Work Phone: Start: 12-16-2023 End: 12-16-2023 Office outpatient visit 25 minutes Roland Faust MD Work Phone: [facility] Comment on above: High risk medication use (Primary Dx); Typical atrial flutter (Multi); Nonischemic cardiomyopathy (Multi); Hypercholesteremia; BMI 28.0-28.9,adult; BMI 30.0-30.9,adult; Current smoker Start: 12-02-2023 End: 12-02-2023 ambulatory DO Sandra A Keita Work Phone: [facility] Work Phone: Start: 12-02-2023 End: 12-02-2023 Patient encounter procedure DO Sandra Keita Work Phone: [facility]-Lab [facility] [place] Work Phone: Start: 11-26-2023 End: 11-26-2023 ambulatory DO Sandra A Keita Work Phone: [facility] Work Phone: Start: 11-26-2023 End: 11-26-2023 Patient encounter procedure DO Sandra Keita Work Phone: [facility] [place] Work Phone: Start: 11-26-2023 End: 01-07-2024 External Result Encounter Oz Kincaid MD Work Phone: [facility] External Department Unsolicited Start: 11-26-2023 End: 01-07-2024 External Result Encounter Oz Kincaid MD Work Phone: [facility] External Department Unsolicited Start: 11-18-2023 End: 11-18-2023 ambulatory DO Sandra A Keita Work Phone: [facility] Work Phone: Start: 11-18-2023 End: 11-18-2023 Patient encounter procedure DO Sandra Debbie Work Phone: [facility] Phys[facility] Family [facility] Work Phone: Start: 11-16-2023 Non-patient / Non-visit DO Millie jacob Keita Work Phone: [facility] Phys[facility] Pulmonary Disease Work Phone: Start: 11-15-2023 End: 11-15-2023 ambulatory DO Sandra A Keita Work Phone: [facility] Work Phone: Start: 11-15-2023 End: 11-15-2023 Patient encounter procedure DO Sandra Debbie Work Phone: [facility]-Respiratory Therapy Work Phone: Start: 11-14-2023 End: 11-14-2023 ambulatory DO Sandra A Debbie Work Phone: [facility] Work Phone: Start: 11-14-2023 End: 11-14-2023 Patient encounter procedure DO Sandra Debbie Work Phone: [facility] Work Phone: Start: 11-13-2023 End: 11-13-2023 Office outpatient visit 25 minutes Jonas Ch MD Work Phone: [facility] Comment on above: Nonischemic cardiomy opathy (Multi) (Primary Dx); Typical atrial flutter (Multi); Hypercholesteremia; Primary hypertension; Current smoker; BMI 28.0-28.9,adult; High risk medication use Start: 11-13-2023 Non-patient / Non-visit DO Millie jacob Keita Work Phone: [facility] Work Phone: Start: 11-10-2023 End: 11-12-2023 Evaluation and management of inpatient DO Sandra Keita Work Phone: [facility] Work Phone: Start: 11-05-2023 End: 11-05-2023 Admission to same day surgery center DO Sandra Keita Work Phone: [facility]-Electrodiagnostics Work Phone: Start: 11-05-2023 End: 11-05-2023 ambulatory DO Sandra Keita Work Phone: [facility] Work Phone: Start: 10-30-2023 End: 01-07-2024 External Result Encounter Oz Kincaid MD Work Phone: [facility] External Department Unsolicited Start: 10-30-2023 End: 01-07-2024 External Result Encounter Oz Kincaid MD Work Phone: [facility] External Department Unsolicited Start: 10-30-2023 End: 10-30-2023 ambulatory DO Sandra Keita Work Phone: [facility] Work Phone: Start: 10-30-2023 End: 10-30-2023 Patient encounter procedure DO Sandra Keita Work Phone: [facility]-XRay [facility] Work Phone: Start: 10-07-2023 End: 10-07-2023 Office outpatient visit 25 minutes Jonas Ch MD Work Phone: [facility] Comment on above: Typical atrial flutt er (Multi); Nonischemic cardiomyopathy (Multi); Hypertension, unspecified type; Hypercholesteremia; Smoker; Type 2 diabetes mellitus with other specified complication, unspecified whether chcf insulin use (Multi); BMI 28.0-28.9,adult Start: 09-17-2023 End: 09-17-2023 ambulatory DO Sandra A Debbie Work Phone: [facility] Work Phone: Start: 09-17-2023 End: 09-17-2023 Patient encounter procedure DO Sandra Debbie Work Phone[facility] [place] Work Phone: Start: 09-16-2023 Non-patient / Non-visit DO Millie jacob Debbie Work Phone: [facility] [place] Work Phone: Start: 09-14-2023 End: 09-14-2023 Non-patient / Non-visit DO Sandra Debbie Work Phone: [facility] Cardiology Work Phone: Start: 09-13-2023 End: 09-14-2023 Evaluation and management of inpatient DO Sandra Debbie Work Phone: [facility] [place] [facility] Work Phone: Start: 09-12-2023 End: 09-12-2023 Patient encounter procedure DO Sandra Debbie Work Phone: [facility] Physician [facility] Work Phone: Start: 09-09-2023 Non-patient / Non-visit DO Millie jacob Debbie Work Phone: [facility] Physician [facility] Family [facility] Work Phone: Start: 09-05-2023 End: 09-05-2023 ambulatory DO Sandra A Debbie Work Phone: [facility] Work Phone: Start: 09-05-2023 End: 09-05-2023 Patient encounter procedure DO Sandra Debbie Work Phone: [facility]-Lab [facility] [place] Work Phone: Start: 07-25-2023 End: 07-25-2023 ambulatory DO Sandrarebecca Keita Work Phone: [facility] Work Phone: Start: 07-25-2023 End: 07-25-2023 Patient encounter procedure DO Sandra Keita Work Phone: [facility]-CT [address] Work Phone: Start: 07-17-2023 End: 07-17-2023 ambulatory [facility] Work Phone: Start: 07-17-2023 End: 07-17-2023 Patient encounter procedure [facility] Vascular Surgery Work Phone: Start: 06-19-2023 End: 06-19-2023 ambulatory [facility] Work Phone: Start: 06-19-2023 End: 06-19-2023 Patient encounter procedure [facility] Work Phone: Start: 06-12-2023 End: 06-12-2023 ambulatory [facility] Work Phone: Start: 06-12-2023 End: 06-12-2023 Patient encounter procedure [facility] Work Phone: Start: 06-10-2023 End: 06-10-2023 ambulatory Tondra Mapus Other [facility] Communications Other Start: 06-10-2023 Telephone encounter Tondra Yvonne [facility] Start: 05-21-2023 End: 05-21-2023 ambulatory Sandra Keita Other [employer] Other Start: 05-21-2023 Telephone encounter Sandra Keita [facility] [place] Start: 04-30-2023 End: 04-30-2023 ambulatory Tondra Mapus Other [employer] Other Start: 04-30-2023 Telephone encounter Angelique Russell [facility] Start: 04-11-2023 End: 04-11-2023 ambulatory Sandra Keita Other [employer] Other Start: 04-11-2023 Telephone encounter Sandra Keita [facility] Start: 04-08-2023 End: 04-08-2023 ambulatory Sandra Keita Other [employer] Other Start: 04-08-2023 Telephone encounter Sandra Keita [facility] Start: 03-05-2023 End: 03-05-2023 ambulatory DO Jonas Yoder Work Phone: [facility] Work Phone: Start: 03-05-2023 End: 03-05-2023 Patient encounter procedure DO Jonas Yoder Work Phone: [facility] Work Phone: Start: 03-04-2023 End: 03-04-2023 ambulatory Sandra Keita Other [employer] Other Start: 03-04-2023 Office outpatient vi sit 25 minutes Sandra Keita [facility] Start: 01-28-2023 End: 01-28-2023 ambulatory Sandra Keita Other [employer] Other Start: 01-28-2023 Telephone encounter Sandra Keita [facility] Start: 01-07-2023 Registered Recurring DO Beba Yoder Work Phone: [facility] Work Phone: Start: 01-07-2023 (DM) Diabetes Tondra Yvonne [facility] Start: 01-07-2023 End: 01-07-2023 ambulatory Tondra Yvonne Other [employer] Other Start: 01-02-2023 End: 01-02-2023 ambulatory Brayden Noble Other [employer] Other Start: 01-02-2023 Office outpatient vi sit 15 minutes Brayden Noble [facility] Gastroenterology Start: 12-28-2022 End: 12-28-2022 ambulatory Sandra Keita Other [employer] Other Start: 12-28-2022 Telephone encounter Sandra Keita [facility] Start: 12-18-2022 End: 12-18-2022 ambulatory Reyna Dallas Other [employer] Other Start: 12-18-2022 Telephone encounter Reyna Dallas [facility] Start: 12-10-2022 End: 12-10-2022 ambulatory Tondra Leonardous Other [employer] Other Start: 12-10-2022 Telephone encounter Tona Yvonne [facility] Start: 11-28-2022 End: 11-28-2022 ambulatory Sandra Keita Other [employer] Other Start: 11-28-2022 Patient encounter procedure Sandra Keita [facility] Start: 11-27-2022 End: 11-27-2022 ambulatory Sandra Keita Other [employer] Other Start: 11-27-2022 Telephone encounter Sandra Keita [facility] Start: 11-06-2022 End: 11-06-2022 ambulatory Sandra Debbie Other [employer] Other Start: 11-06-2022 Telephone encounter Sandra Debbie [facility] [place] Start: 09-27-2022 (DM) Diabetes Juliodra Yvonne [facility] Start: 09-27-2022 End: 09-27-2022 ambulatory Tona Yvonne Other [employer] Other Start: 09-10-2022 End: 09-10-2022 ambulatory Sandra Debbie Other [employer] Other Start: 09-10-2022 Telephone encounter Sandra Keita [facility] [place] Start: 09-05-2022 Telephone encounter Sandra Debbie [facility] [place] Start: 09-05-2022 End: 09-05-2022 ambulatory DO Sandra A Keita Work Phone: [facility] Work Phone: Start: 09-05-2022 End: 09-05-2022 Patient encounter procedure DO Sandra Keita Work Phone: [facility] Work Phone: Start: 08-22-2022 Telephone encounter Sandrarebecca Keita [facility] Start: 08-22-2022 End: 08-22-2022 ambulatory DO Sandra A Keita Work Phone: [facility] Work Phone: Start: 08-22-2022 End: 08-22-2022 Patient encounter procedure DO Sandra Keita Work Phone: [facility] [address] Work Phone: Start: 08-09-2022 End: 08-09-2022 ambulatory Sandra Keita Other [employer] Other Start: 08-09-2022 Office outpatient vi sit 15 minutes Sandrarebecca Keita [facility] [place] Start: 08-06-2022 End: 08-06-2022 ambulatory Sandra Keita Other [employer] Other Start: 08-06-2022 Telephone encounter Sandra Keita [facility] [place] Start: 07-10-2022 End: 07-10-2022 ambulatory Sandra Keita Other [employer] Other Start: 07-10-2022 Telephone encounter Sandra Keita [facility] [place] Start: 07-04-2022 End: 07-04-2022 ambulatory Tolu Salinas Other [employer] Other Start: 07-04-2022 Telephone encounter Tolu Salinas [facility] [place] Start: 06-19-2022 End: 06-19-2022 ambulatory Tondra Mapus Other [employer] Other Start: 06-19-2022 Telephone encounter Tondra Mapus [facility] Start: 06-18-2022 (DM) Diabetes Tondra Mapus [facility] Start: 06-18-2022 End: 06-18-2022 ambulatory Tondra Mapus Other [employer] Other Start: 06-14-2022 End: 06-14-2022 ambulatory Tondra Mapus Other [employer] Other Start: 06-14-2022 Telephone encounter Tondra Mapus [facility] Start: 06-08-2022 End: 06-08-2022 ambulatory Tondra Mapus Other [employer] Other Start: 06-08-2022 Telephone encounter Tondra Mapus [facility] Start: 06-04-2022 End: 06-04-2022 ambulatory Sandrarebecca Keita Other [employer] Other Start: 06-04-2022 Telephone encounter Sandra Keita [facility] [place] Start: 05-30-2022 End: 05-30-2022 ambulatory Sandrarebecca Keita Other [employer] Other Start: 05-30-2022 Telephone encounter Sandra Keita [facility] Family [facility] [place] Start: 05-24-2022 End: 05-24-2022 ambulatory Sandrarebecca Keita Other [employer] Other Start: 05-24-2022 Telephone encounter Sandra Keita [facility] [place] Start: 04-03-2022 End: 04-03-2022 ambulatory Sandra Keita Other [employer] Other Start: 04-03-2022 Telephone encounter Sandra Keita [facility] [place] Start: 02-14-2022 End: 02-14-2022 ambulatory Sandrarebecca Keita Other [employer] Other Start: 02-14-2022 Telephone encounter Sandra Keita [facility] Start: 01-09-2022 (DM) Diabetes Tondra Yvonne [facility] Start: 01-09-2022 End: 01-09-2022 ambulatory Tondra Yvonne Other [employer] Other Start: 12-21-2021 ambulatory Teresa Strong Facility:[facility] Start: 12-18-2021 ambulatory Francesca Turner lity:ENRIQUE Zarate Start: 12-17-2021 End: 12-17-2021 Emergency department patient visit DO Tray Randle [facility] Start: 12-13-2021 ambulatory Francesca Ramirez ty:ENRIQUE [facility]un Start: 12-12-2021 End: 12-13-2021 ambulatory ARLEEN STEPHEN Facility:[id number] Start: 12-11-2021 End: 12-12-2021 ambulatory ARLEEN STEPHEN Facility:[id number] Start: 12-09-2021 End: 12-13-2021 Evaluation and management of inpatient DO Tray Randle [facility] [place] [facility] Start: 10-12-2021 End: 10-12-2021 ambulatory Crispin Looney Other [employer] Other Start: 10-12-2021 Patient encounter procedure Crispin Looney [facility] [place] Start: 10-12-2021 Telephone encounter Crispin Mejias [facility] [place] Start: 09-13-2021 End: 09-13-2021 ambulatory Crispin Looney Other [employer] Other Start: 09-13-2021 Telephone encounter Crispin Mejias [facility] [place] Start: 08-28-2021 End: 08-28-2021 ambulatory Tondra Mapus Other [employer] Other Start: 08-28-2021 Telephone encounter Tondra Mapus [facility] Start: 07-10-2021 (DM) Diabetes Tondra Mapus [facility] Start: 07-10-2021 End: 07-10-2021 ambulatory Tondra Mapus Other [employer] Other Start: 07-03-2021 End: 07-03-2021 ambulatory Ruben Hahn Other [employer] Other Start: 07-03-2021 Office outpatient ne w 30 minutes Ruben Hahn [facility] Start: 06-28-2021 End: 06-28-2021 ambulatory Crispin Looney Other [employer] Other Start: 06-28-2021 Telephone encounter Crispin Mejias [facility] [place] Start: 05-25-2021 End: 05-25-2021 ambulatory Crispin Looney Other [employer] Other Start: 05-25-2021 Telephone encounter Crispin Mejias [facility] [place] Start: 05-08-2021 End: 05-08-2021 ambulatory Crispin Looney Other [employer] Other Start: 05-08-2021 Office outpatient ne w 45 minutes Crispinjaclyn Looney [facility] [place] Start: 04-11-2021 End: 04-11-2021 ambulatory Tondra Mapus Other [employer] Other Start: 04-11-2021 Telephone encounter Tondra Mapus [facility] Start: 04-03-2021 End: 04-03-2021 ambulatory Tray Nava Other [employer] Other Start: 04-03-2021 Office outpatient vi sit 15 minutes Tray Nava [facility] Start: 03-27-2021 (DM) Diabetes Tondra Mapus [facility] Start: 03-27-2021 End: 03-27-2021 ambulatory Tondra Mapus Other [employer] Other Start: 02-27-2021 End: 02-27-2021 ambulatory Tray Nava Other [employer] Other Start: 02-27-2021 Office outpatient vi sit 15 minutes Tray Nava [facility] Start: 05-16-2017 End: 05-16-2017 Ambulatory MATTHEW VOSS Facility:UNKNOWN Start: 01-25-2017 End: 01-26-2017 Ambulatory [facility] Facility:[id number] Procedures Date Procedure Procedure Detail Performing Clinician Start: 11-16-2024 Radex foot complete minimum 3 views Karl Fritz DPM Work Phone: Start: 11-16-2024 SUPERFICIAL WOUND CULTURE ([facility] Razia Fritz DPM Work Phone: Start: 11-16-2024 Aerobic microbial culture Sandra Debbie D O Work Phone: Start: 09-10-2024 Esophagogastroduodenoscopy Sandra Debbie DO Work Phone: Start: 07-06-2024 Urine culture Sandra Debbei DO Work Phone: Start: 06-26-2024 Complete blood count with white cell differential, automated Nataliya Jane MANAGER MEDIA Other Phone: Start: 06-26-2024 Ecg routine ecg w/least 12 lds w/i&r Roland Faust MD Work Phone: Start: 05-25-2024 MRI of head Sandra Debbie DO Work Phone: Start: 04-29-2024 Urine culture Sandra Debbie DO Work Phone: Start: 04-28-2024 CT angiography of head Sandra Keita DO Work Phone: Start: 04-28-2024 CT angiography of neck vessels Sandrarebecca terrazas DO Work Phone: Start: 04-28-2024 CT of head without contrast Sandra Debbie DO Work Phone: Start: 04-28-2024 Plain chest X-ray Sandra Keita DO Work Phone: Start: 04-28-2024 Respiratory Panel (PCR) Sandra Keita DO Work Phone: Start: 04-14-2024 Complete blood count with white cell differential, automated Nataliya Jane NP Work Phone: Start: 04-14-2024 Comprehensive metabolic panel Nataliya Best Candelaria oren MANAGER [employer] Work Phone: Start: 04-14-2024 PATHOLOGIST SLIDE REVIEW ([facility] Nataliya Best Lillian ward MANAGER [employer] Work Phone: Start: 03-25-2024 Ecg routine ecg w/least 12 lds w/i&r Roland Faust MD Work Phone: Start: 01-07-2024 Aerobic microbial culture DO Sandra Oswald Work Phone: Start: 01-06-2024 Duplex scan of lower limb veins DO Magdalena fernandez Keita Work Phone: Start: 12-17-2023 MR lumbar spine wo con DO Sandra Keita Work Phone: Start: 12-17-2023 XR pre/post mri xray DO Sandra Keita Work Phone: Start: 12-16-2023 Ecg routine ecg w/least 12 lds w/i&r Roland Faust MD Work Phone: Start: 11-26-2023 ANCA PROFILE (ANCA+MPO+PR3) Oz Snyder Work Phone: Start: 11-26-2023 ANTI-CENTROMERE B ANTIBODIES Oz Kincaid MD Work Phone: Start: 11-26-2023 ANTI-DSDNA(DBL)AB Oz Kincaid MD Work Phone: Start: 11-26-2023 ANTI-EMG TECHNICIAN Oz Kincaid MD Work Phone: Start: 11-26-2023 [...] on above: Performed By: #### [id number] #### [place] [address] Blood culture for ba cteria, including anaerobic screen DO Tray Randle SARS Antigen (LFIA) DO Sunni Randle Urine culture DO Tray yates Urine culture DO Tray yates Plan of Treatment Date Care Activity Detail Author Start: 08-17-2025 End: 08-17-2025 Patient encounter procedure 08/17/2025 3:10 PM EDT Office Visit [address] [place] [address] Roland Faust MD [address] [facility] [address] [place] [address] [facility] Start: 01-19-2025 End: 01-19-2025 Patient encounter procedure [facility] Start: 12-30-2024 End: 12-30-2024 Patient encounter procedure 12/30/2024 1:40 PM EDT Office Visit [facility] [address] [facility] [address] [place] [address] Roland Faust MD [address] [facility] [address] [place] [address] [facility] Start: 12-28-2024 COVID-19 Vaccine ( season) COVID-19 Vaccine ( season) [facility] Start: 12-28-2024 Influenza vaccination Influenza Vaccine (#1) [facility] Start: 12-18-2024 End: 12-18-2024 Patient encounter procedure [facility] Start: 12-11-2024 End: 12-11-2024 Patient encounter procedure [facility] Start: 11-30-2024 End: 11-30-2024 Patient encounter procedure 11/30/2024 1:15 PM EDT Office Visit [facility] [address] [place] [address] Karl Fritz, DPM [address] [place] [address] [facility] Start: 11-23-2024 End: 11-23-2024 [facility] Comment on above: Arrived Start: 11-16-2024 Superficial Wound Culture Superficial Wound Culture [facility] Start: 10-29-2024 Thyroid stimulating hormone measurement TSH Level [facility] Start: 10-28-2024 End: 10-28-2024 Patient encounter procedure 10/28/2024 4:00 PM EDT Office Visit [facility] [address] [place] [address] Karl Fritz, DPM [address] [place] [address] [facility] Start: 10-23-2024 End: 10-23-2024 Patient encounter procedure 10/23/2024 12:00 PM EDT Procedure Visit [facility] [address] [place] [address] Oz Kincaid MD [address] [facility] [address] [place] [address] [facility] Start: 10-20-2024 End: 10-20-2024 Patient encounter procedure 10/20/2024 10:45 AM EDT Office Visit [facility] [address] [place] [address] Karl Fritz DPM [address] [place] [address] Arrived [facility] Comment on above: Arrived Start: 10-06-2024 End: 10-06-2025 EMG AND NERVE CONDUCTION STUDY EMG AND NERVE CONDUCTION STUDY Neurology Routine Numbness Leg pain, left Leg pain, right Bilateral leg weakness Expected: 10/06/2024 (Approximate), Expires: 10/06/2025 [facility] Work Phone: Comment on above: Expected: 10/06/2024 (Approximate), Expi res: 10/06/2025 Start: 10-06-2024 End: 10-06-2024 Patient encounter procedure [facility] Comment on above: Arrived Start: 09-10-2024 End: 09-10-[address] [facility] Start: 09-07-2024 Patient referral [facility] Work Phone: Start: 08-25-2024 Patient referral [facility] Work Phone: Start: 07-22-2024 Ankle brachial pressure index [facility] Start: 07-06-2024 Urine culture [facility] Start: 07-06-2024 Bacteria identified in Urine by Culture Urine Culture [facility] Start: 06-26-[address] [facility] Start: 05-26-2024 End: 05-26-2024 Patient encounter procedure 05/26/2024 2:40 PM EST Office Visit [address] [place] [address] Roland Faust MD [address] [place] [address] [facility] Start: 05-07-2024 End: 05-07-2024 Patient encounter procedure 05/07/2024 2:15 PM EST Office Visit [facility] [address] [place] [phone] Karl Fritz, DPM [address] [place] [address] [facility] Start: 04-30-[address] [facility] Start: 04-29-2024 End: 04-29-2024 Urine culture [facility] Start: 04-29-2024 Referral to neurologist [facility] Start: 04-29-[address] [facility] Start: 04-28-2024 Hospital admission [facility] Start: 04-28-[address] [facility] Start: 04-07-2024 End: 04-07-2024 Patient encounter procedure 04/07/2024 3:30 PM EST Office Visit [facility] [address] [place] [address] Karl Fritz, DPM [address] [place] [address] [facility] Start: 04-07-2024 End: 04-07-2024 Patient encounter procedure [facility] Comment on above: Arrived Start: 03-27-2024 End: 03-27-2024 Patient encounter procedure 03/27/2024 10:10 AM EST Office Visit [facility] [address] [place] [phone] Roland Faust MD [address] [place] [address] [facility] Start: 03-24-2024 End: 03-24-2024 Patient encounter procedure 03/24/2024 1:30 PM EST Office Visit [facility] [address] [place] [address] Karl Fritz, DPM [address] [place] [address] [facility] Start: 03-10-2024 End: 03-10-2024 Patient encounter procedure 03/10/2024 1:30 PM EST Office Visit [facility] [address] [place] [address] Karl Fritz, DPM [address] [place] [address] [facility] Start: 02-25-2024 End: 02-25-2024 Patient encounter procedure [facility] Comment on above: Arrived Start: 02-10-2024 End: 02-10-2024 Patient encounter procedure [facility] Comment on above: Arrived Start: 01-28-2024 End: 01-28-2024 Patient encounter procedure 01/28/2024 1:30 PM EDT Office Visit [facility] [address] [place] [phone] Oz Kincaid MD [address] [facility] [address] [address] [facility] Start: 01-27-2024 End: 01-27-2024 Patient encounter procedure [facility] Comment on above: Arrived Start: 01-21-2024 End: 01-21-2024 Patient encounter procedure 01/21/2024 11:00 AM EDT Office Visit [facility] [address] [place] [address] Karl Fritz, DPM [address] [place] [address] Arrived [facility] Comment on above: Arrived Start: 01-07-2024 Superficial Wound Culture Superficial Wound Culture [facility] Start: 01-07-2024 End: 01-06-2025 SUPERFICIAL WOUND CULTURE ([facility] SUPERFICIAL WOUND CULTURE ([facility]) Microbiology Routine Ulcer of right foot, limited to breakdown of skin (CMS/HCC) Cellulitis of right foot Expected: 01/07/2024 (Approximate), Expires: 01/06/2025 [facility] Work Phone: Comment on above: Expected: 01/07/2024 (Approximate), Expi res: 01/06/2025 Start: 01-07-2024 End: 01-07-2024 Patient encounter procedure 01/07/2024 1:15 PM EDT Office Visit [facility] [address] [place] [address] Oz Kincaid MD [address] [facility] [place] [id number] [facility] Start: 01-07-2024 End: 01-07-2024 Patient encounter procedure 01/07/2024 9:45 AM EDT Office Visit [facility] [address] [place] [address] Karl Fritz DPM [address] [place] [address] Arrived [facility] Comment on above: Arrived Start: 01-06-2024 Duplex scan of lower limb veins US venous duplex LE BI [facility] Start: 01-06-2024 US Lower extremity vein - bilateral [facility] Start: 12-29-2023 COVID-19 Vaccine () COVID-19 Vaccine () [facility] Start: 12-29-2023 Influenza vaccination [facility] Start: 12-02-2023 Blood zinc measurement [facility] Start: 12-02-2023 End: 12-02-[address] [facility] Start: 11-26-2023 Antibody to Scl-[address] [facility] Start: 11-26-2023 EMG TECHNICIAN antibody measurement [facility] Start: 11-26-[address] [facility] Start: 11-13-2023 End: 11-12-2024 Aspartate aminotransferase [Enzymatic activity/volume] in Serum or Plasma by With P-5'-P Aspartate Aminotransferase Lab Routine High risk medication use Expected: 11/13/2023 (Approximate), Expires: 11/12/2024 [facility] Service Area Work Phone: Comment on above: Expected: 11/13/2023 (Approximate), Expi res: 11/12/2024 Start: 11-13-2023 End: 11-12-2024 Basic metabolic 2000 panel - Serum or Plasma Basic Metabolic Panel Lab Routine High risk medication use Expected: 11/13/2023 (Approximate), Expires: 11/12/2024 [facility] Work Phone: Comment on above: Expected: 11/13/2023 (Approximate), Expi res: 11/12/2024 Start: 11-13-2023 End: 11-12-2024 Complete Pulmonary Function Test (Spirometry/DLCO/Lung Volumes) Complete Pulmonary Function Test (Spirometry/DLCO/Lung Volumes) PFT Routine Typical atrial flutter (Multi) Expected: 11/13/2023 (Approximate), Expires: 11/12/2024 [facility] Work Phone: Comment on above: Expected: 11/13/2023 (Approximate), Expi res: 11/12/2024 Start: 11-13-2023 End: 11-13-2023 Patient encounter procedure 11/13/2023 2:00 PM EDT Office Visit [facility] [address] [facility] [address] [place] [phone] Jonas Ch MD [address] [facility] [address] [place] [address] [facility] Start: 11-13-2023 End: 11-12-2024 Thyrotropin [Units/volume] in Serum or Plasma Thyroid Stimulating Hormone Lab Routine High risk medication use Expected: 11/13/2023 (Approximate), Expires: 11/12/2024 [facility] Work Phone: Comment on above: Expected: 11/13/2023 (Approximate), Expi res: 11/12/2024 Start: 11-13-2023 End: 11-12-2024 XR Chest 2 Views XR chest 2 views Imaging Routine Typical atrial flutter (Multi) Expected: 11/13/2023 (Approximate), Expires: 11/12/2024 [facility] Work Phone: Comment on above: Expected: 11/13/2023 (Approximate), Expi res: 11/12/2024 Start: 11-12-[address] [facility] Start: 11-11-[address] [facility] Start: 11-10-2023 Bacteria identified in Urine by Culture [facility] Start: 11-10-2023 Referral to neurologist [facility] Start: 11-10-2023 Hospital admission [facility] Start: 11-10-2023 Physical therapy procedure [facility] Start: 11-10-2023 Referral to occupational therapist [facility] Start: 11-10-[address] [facility] Start: 11-10-[address] [facility] Start: 11-05-[address] [facility] Start: 10-30-2023 Blood zinc measurement [facility] Start: 10-30-[address] [facility] Start: 10-28-2023 End: 10-06-2025 Cardioversion External Cardioversion External Cardiac Services Routine Typical atrial flutter (Multi) Expected: 10/28/2023 (Approximate), Expires: 10/06/2025 [facility] Service Area Work Phone: Comment on above: Expected: 10/28/2023 (Approximate), Expi res: 10/06/2025 Start: 09-14-[address] [facility] Start: 09-12-2023 Referral to production bow maker [facility] Start: 09-12-2023 Hospital admission [facility] Start: 12-28-2022 COVID-19 Vaccine ( season) COVID-19 Vaccine ( season) [facility] Start: 2022 Screening for osteoporosis Bone Density Scan [facility] [facility] Start: 12-17-2021 Computed tomography of abdomen and pelvis with contrast CT abdomen pelvis w con [facility] Start: 12-17-2021 End: 12-17-2021 Emergency department patient visit Departed Emergency [facility] Start: 12-13-2021 [facility] Work Phone: Start: 12-11-2021 Referral to urologist [facility] Work Phone: Start: 12-11-2021 Referral to general surgeon [facility] Work Phone: Start: 12-09-2021 Hospital admission [facility] Work Phone: Start: 06-10-2021 Screening for malignant neoplasm of breast Mammogram [facility] Start: 2017 RSV High Risk: (Elderly (60+) or Population) (1 - Risk 60-74 years 1-dose series) RSV High Risk: (Elderly (60+) or Population) (1 - Risk 60-74 years 1-dose series) [facility] Start: 2017 RSV patients and/or patients aged 60+ years (1 - 1-dose 60+ series) RSV patients and/or patients aged 60+ years (1 - 1-dose 60+ series) [facility] Start: 11-26-2007 Zoster Vaccines (1 of 2) Zoster Vaccines (1 of 2) [facility] Start: 11-26-1979 DTaP/Tdap/Td Vaccines (1 - Tdap) DTaP/Tdap/Td Vaccines (1 - Tdap) [facility] Start: 1978 Screening for malignant neoplasm of cervix [facility] Start: 1976 Pneumococcal vaccination Pneumococcal Vaccine (1 of 2 - PCV) [facility] Start: 1976 Urine screening for protein Diabetes: Urine Protein Screening [facility] Start: 11-26-1975 Hepatitis C screening Hepatitis C Screening [facility] Start: 11-26-1967 Diabetic foot examination Diabetes: Foot Exam [facility] Start: 11-26-1967 Glaucoma screening Diabetes: Retinopathy Screening [facility] Start: 11-26-1963 Pneumococcal Vaccine: 65+ Years (1 of 2 - PCV) Pneumococcal Vaccine: 65+ Years (1 of 2 - PCV) [facility] Start: 1958 MMR Vaccines (1 of 1 - Standard series) MMR Vaccines (1 of 1 - Standard series) [facility] Start: 1957 Annual wellness visit [facility] Start: 1957 Hemoglobin A1c measurement Diabetes: Hemoglobin A1C [facility] Start: 1957 Lipid panel Lipid Panel [facility] Start: 1957 Medicare Annual Wellness Visit Medicare Annual Wellness Visit (AWV) [facility] Start: 1957 Screening for malignant neoplasm of colon [facility] Start: 1957 Screening for osteoporosis Bone Density Scan [facility] Start: 1957 Thyroid stimulating hormone measurement TSH Level [facility] Start: 1957 Urine screening for protein Diabetes: Urine Protein Screening [facility] 24 hour urine [facility] Albumin [Mass/volume ] in Serum or Plasma [facility] Albumin/Globulin ratio [facility] Aldolase measurement [facility] Angiotensin converti ng enzyme [Enzymatic activity/volume] in Serum or Plasma [facility] Antibody measurement [facility] Arsenic measurement [facility] Bacteria identified in Unspecified specimen by Aerobe culture [facility] Bacteria identified in Unspecified specimen by Aerobe culture [facility] Borrelia burgdorferi Ab [Interpretation] in Serum [facility] Borrelia burgdorferi IgG Ab [Presence] in Serum or Plasma by Immunoassay [facility] Borrelia burgdorferi IgG+IgM Ab [Presence] in Serum by Immunoassay [facility] Borrelia burgdorferi IgM Ab [Presence] in Serum or Plasma by Immunoassay [facility] Centromere protein B Ab [Units/volume] in Serum [facility] Ceruloplasmin [Mass/ volume] in Serum or Plasma [facility] Ceruloplasmin [Mass/ volume] in Serum or Plasma [facility] Complement C3 [Mass/ volume] in Serum or Plasma [facility] Complement C4 [Mass/ volume] in Serum or Plasma [facility] Comprehensive metabo lic 1999 panel - Serum or Plasma [facility] Comprehensive metabo lic 1999 panel - Serum or Plasma [facility] Comprehensive metabo lic 1999 panel - Serum or Plasma [facility] Copper measurement [facility] Cryoglobulin [Presen ce] in Serum [facility] CT Unspecified body region F [facility] DXA Skeletal system. axial Views for bone density [facility] Electrophoresis: [id number] [facility] Electrophoresis: [id number] [facility] Electrophoresis: beta-globulin [facility] Electrophoresis: gaby ma globulin [facility] FLOWCYTOMETRY NEOGENOMIC FLOWCYT OMETRY NEOGENOMIC Lab Routine 06/26/2024 10:44 AM [facility] [email or web address] Work Phone: Globulin [Mass/volum e] in Serum [facility] Glucose measurement estimated from glycated hemoglobin [facility] Hepatitis A virus an tibody, IgM type [facility] Hepatitis B core ant ibody measurement, IgM type [facility] Hepatitis B virus razo rface Ag [Presence] in Serum or Plasma by Immunoassay [facility] Hepatitis C virus Ig G Ab [Presence] in Serum or Plasma by Immunoassay [facility] Hepatitis C virus RN A [log units/volume] (viral load) in Serum or Plasma by TEJINDER with probe detection [facility] Hepatitis C virus RN A [Units/volume] (viral load) in Serum or Plasma by TEJINDER with probe detection [facility] Histone IgG Ab [Units/volume] in Serum by Immunoassay [facility] HIV 1+2 Ab+HIV1 p24 Ag [Presence] in Serum or Plasma by Immunoassay [facility] Homocysteine [Moles/ volume] in Serum or Plasma [facility] Homogenous nuclear A b pattern [Titer] in Serum [facility] Homogenous nuclear A b pattern [Titer] in Serum [facility] IgA [Mass/volume] in Serum or Plasma [facility] IgG [Mass/volume] in Serum or Plasma [facility] IgM [Mass/volume] in Serum or Plasma [facility] Immunofixation for Urine [facility] Sushma-1 extractable nuc lear Ab [Units/volume] in Serum [facility] Lead [Presence] in Blood [facility] Lutropin [Units/volu me] in Serum or Plasma [facility] Measurement of monoc lonal protein concentration [facility] Mercury [Mass/volume ] in Blood [facility] Methylmalonate [Moles/volume] in Serum or Plasma [facility] MG Breast - bilatera l Screening [facility] MG Breast - bilatera l Screening [facility] Mitochondria M2 IgG Ab [Units/volume] in Serum [facility] MR Cervical spine WO contrast [facility] MR Thoracic spine [facility] Myeloperoxidase Ab [Units/volume] in Serum by Immunoassay [facility] Neutrophil cytoplasm ic Ab.classic [Titer] in Serum by Immunofluorescence [facility] Nuclear Ab [Titer] in Serum [facility] Nuclear Ab [Titer] in Serum [facility] P-ANCA measurement [facility] Patient Education [facility] Work Phone: Patient referral [facility] Work Phone: Porphobilinogen [Mass/volume] in Urine [facility] Protein [Mass/volume ] in Serum or Plasma [facility] Protein [Mass/volume ] in Urine [facility] Proteinase 3 Ab [Units/volume] in Serum by Immunoassay [facility] Pyridoxine [Mass/vol ume] in Serum or Plasma [facility] Reagin Ab [Presence] in Serum by RPR [facility] Rheumatoid factor [Units/volume] in Serum or Plasma [facility] Ribosomal P Ab [Units/volume] in Serum [facility] Serum immunofixation [facility] Sjogrens syndrome-A extractable nuclear Ab [Units/volume] in Serum [facility] Sjogrens syndrome-B extractable nuclear Ab [Units/volume] in Serum [facility] Fritz extractable nu clear Ab [Units/volume] in Serum [facility] SUPERFICIAL WOUND CU LTURE [place] [facility] Work Phone: Comment on above: Ordered: 11/16/2024 Thallium [Mass/volum e] in Serum or Plasma [facility] West Nile virus IgG Ab [Presence] in Serum by Immunoassay [facility] West Nile virus IgM Ab [Presence] in Serum by Immunoassay [facility] Immunizations Immunization Date Immunization Notes Care Provider Radha pruitt 04-02-2002 measles, mumps and rubella virus vaccine Sandra Keita Other [facility] NEGATED: Highlighted row has not occurred!03-04-2023 Flu Shot - Documentation Purposes Only Sandra Keita Other [employer] Other NEGATED: Highlighted row has not occurred!04-16-2022 influenza, seasonal, injectable Patient Objection Sandra Keita Other [facility] Payers Date Payer Category Payer Medicare [id number] 2024 Self-pay [id number] 2023 Medicare [id number] 2023 Dual Eligibility Medicare/Medicaid Organization [id number] 2023 Private Health Insurance [employer] DUAL COMPLETE [employer] DUAL COMPLETE [id number] 2023-Present [address] [address] [place] [address] [id number] .7.3.614199.315 2022 Medicare [id number] 2.16.840.1.179243.19 2022 Medicare [id number] 1.13.693.2 .7.3.035538.315 2022 Medicare (Managed Care) [facility] MEDICARE [id number] 2022 Private Health Insurance [id number] 2021 Medicaid [id number] .[id number] 2021 Blue Cross Blue Shield [id number] 2.16.840.1.237803.19 2017 Unknown [id number] 1959 Medicaid [id number] 1957 Unknown [id number] 2.16.840.1.205827.3.579.2 .1957 Unknown [id number] 2.16.840.1.675305.3.579.2 .7 1957 Unknown [id number] 2.16.840.1.758886.3.579.2 .727 1957 Unknown [id number] 2.16.840.1.491029.3.579.2 .727 1957 Unknown [id number] 2.16.840.1.404877.3.579.2 .727 1957 Unknown [id number] 2.16840.1.644422.3.579.2 .196 1957 Unknown [id number] 2.16.840.1.906446.3.579.2 .196 1957 Unknown [id number] 2.16840.1.901528.3.579.2 .124 1957 Unknown [id number] 2.840.1.815772.3.579.2 .1243 1957 Unknown [id number] 2.840.1.758263.3.579.2 .1243 1957 Unknown [id number] 2.0.1.850784.3.579.2 .1258 1957 Unknown [id number] 2.840.1.362887.3.579.2 .1258 1957 Unknown [id number] 2.840.1.309100.3.579.2 .1258 1957 Unknown [id number] 2.840.1.744483.3.579.2 .1258 1957 Unknown [id number] 2.0.1.695940.3.579.2 .1258 1957 Unknown [id number] 2.840.1.473459.3.579.2 .1258 1957 Unknown [id number] 2.840.1.149506.3.579.2 .1258 1957 Unknown [id number] 2.840.1.966757.3.579.2 .1258 1957 Unknown [id number] 2.840.1.563340.3.579.2 .1258 1957 Unknown [id number] 2.16.840.1.489780.3.579.2 .1258 1957 Unknown [id number] 2.16.840.1.474107.3.579.2 .1258 1957 Unknown [id number] 2.16.840.1.900782.3.579.2 .1258 1957 Unknown [id number] 2.16.840.1.425791.3.579.2 .1258 1957 Unknown [id number] 2.16.840.1.413487.3.579.2 .1258 1957 Unknown [id number] 2.840.1.047819.3.579.2 .1258 1957 Unknown [id number] 2.16.840.1.002379.3.579.2 .1259 Medicare [id number] 2.840.1.126532.19 Unknown [id number] 2.16840.1.271768.3.579.2 .531 Unknown [id number] 2.16.840.1.683985.3.579.2 .531 Unknown [id number] 2.16.840.1.171796.3.579.2 .531 Unknown [id number] 2.16.840.1.023170.3.579.2 .531 Unknown [id number] 2.16.840.1.956962.3.579.2 .531 Unknown [id number] 2.16.840.1.715591.3.579.2 .531 Unknown [id number] 2.16.840.1.868105.3.579.2 .531 Unknown [id number] 2.16.840.1.662510.3.579.2 .531 Unknown [id number] 2.16.840.1.908152.3.579.2 .531 Unknown [id number] 2.16.840.1.430944.3.579.2 .531 Unknown [id number] 2.16.840.1.909458.3.579.2 .531 Unknown [id number] 2.16.840.1.861137.3.579.2 .531 Unknown [id number] 2.16.840.1.794545.3.579.2 .531 Social History Date Type Detail Facility Unknown if ever smoked [facility] [employer] Other Start: 10-07-2023 End: 06-26-2024 Sex Assigned At [facility] [employer] Other Start: 12-17-2021 End: 09-10-2024 Tobacco smoking status NHIS Smoker (finding) [facility] Start: 1955 Sex Assigned At Female [facility] Start: 10-07-2023 End: 09-10-2024 Tobacco smoking status NHIS Smokes tobacco daily [facility] Start: 04-29-1975 History of tobacco use Cigarette Smo ker [facility] Work Phone: Start: 10-07-2023 Tobacco use and exposure Smokeless tobacco non-user [facility] Work Phone: Start: 10-07-2023 End: 12-30-2024 Alcoholic beverage intake Lifetime non-drinker (finding) [facility] Work Phone: Start: 10-07-2023 End: 06-26-2024 History of Social function [facility] Work Phone: Start: 1955 [facility] Start: 09-27-2023 End: 06-26-2024 Exposure to SARS-CoV-2 (event) Not sure [facility] Start: 01-29-2023 Tobacco use and exposure User of smokeless tobacco [facility] Start: 01-29-2023 Tobacco Comment Smokes 11-20 c igs per day [facility] Start: 01-09-2023 Alcohol Comment caffeine intak e: occasional [facility] Start: 04-29-2024 End: 10-01-2024 Sex Female (finding) [facility] Start: 11-28-2022 Sex Female [facility] Medical Equipment Procedure Code Equipment Code Equipment [...] Functional status Patient at [facility] Work Phone: 11-12-2023 Functional status Patient at [facility] Work Phone: 09-14-2023 Functional status Patient at [facility] Work Phone: 12-13-2021 Functional status Patient at [facility] Work Phone: Mental Status Date Assessment Result Facility 04-30-2024 Cognitive function Cognitive Sta tus Patient at [facility] Work Phone: 11-12-2023 Cognitive function Cognitive Sta tus Patient at [facility] Work Phone: 09-14-2023 Cognitive function Cognitive Sta tus Patient at [facility] Work Phone: 12-13-2021 Cognitive function Cognitive Sta tus Patient at [facility] Work Phone: Clinical Notes 02-27-2021 to 12-30-2024 Roland Faust MD - 12/30/2024 1:40 PM EDTPatient InstructionsAttachAnthony Kincaid MD - 12/18/2024 1:15 PM EDT Note Date & Type Note Facility 12-30-2024 History of Present illness Narrative Chief Complaint Patient presents with Follow-up 6 month, nonischemic cardiomyopathy Subjective Taye Gay is a 69 y.o. female HPI [...] and agreed 4. We discussed ischemic evaluation again the [...] Attestation By signing my name below, I, Samantha Shields LPNibmitzi attest that this documentation has been prepared [...] discussion and plan. documented in this encounter [facility] Work Phone: 12-30-2024 Instructions Edilma Menezes LPN - 12/30/2024 1:40 PM [...] 5.9 Lbs Provided instructions on dietary changes. The following attachments cannot be sent through Care Everywhere.Heart Healthy Diet (Serbian)Quitting smoking (Serbian)documented in this encounter [facility] Work Phone: 12-18-2024 History of Present illness Narrative [facility] Patient: Taye Gay [address], [address] , Sex: 1955, Female [place], [place] [address] Height: 168 cm Ref Phys: Debbie Kincaid fax Electroneuromyogram ([facility]) Test Date: 2024-12-18 Patient Complaints: Pain BLE Nerve Conduction Studies Anti Sensory Summary Table Site NR Peak (ms) Norm Peak (ms) P-T* Amp ( V) Norm P-T Amp Site1 Site2 Delta-0 (ms) Dist (cm) Melvin (m/s) Norm Melvin (m/s) Left Saphenous (Wainapel's) Anti Sensory (med mall) med leg NR <4.41 >5.0 med leg med mall 14.0 >38.2 Right Saphenous ([place]ain[place]el's) Anti Sensory (med mall) unable to study - wound dressing med leg NR <4.41 >5.0 Left Superf Peron (Vic's) Anti Sensory (Ant Lat Mall) Calf NR <4.61 >3.99 Calf Ant Lat Mall 14.0 >40.49 Right Superf Peron (Vic's) Anti Sensory (Ant Lat Mall) Calf NR <4.61 >3.99 Calf Ant Lat Mall 14.0 >40.49 Left Sural Anti Sensory (Lat Mall) Calf NR <3.91 >5.99 Calf Lat Mall 14.0 >36.9 Right Sural Anti Sensory (Lat Mall) Calf NR <3.91 >5.99 Calf Lat Mall 14.0 >36.9 Motor Summary Table Site NR Onset (ms) Norm Onset (ms) O-P* Amp (mV) Norm O-P Amp Neg Dur (ms) Site1 Site2 Delta-0 (ms) Dist (cm) Melvin (m/s) Norm Melvin (m/s) Left Peroneal Motor (Ext Dig Brev) max stim Ankle NR <6.31 >1.99 Ankle Ext Dig Brev 10.0 B Fib NR >1.99 B Fib Ankle 24.0 >38.9 Right Peroneal Motor (Ext Dig Brev) Ankle 8.0 <6.31 1.0 >1.99 4.22 Ankle Ext Dig Brev 8.0 10.0 13 B Fib 15.9 1.0 >1.99 5.00 B Fib Ankle 7.9 25.0 32 >38.9 Left Peroneal TA Motor (Tib Ant) Fib Head 6.9 0.5 8.75 Right Peroneal TA Motor (Tib Ant) Fib Head 4.8 1.9 6.88 Left Tibial/Medial Plantar Motor (Abd Bedoya Brev) max stim Ankle NR <7.51 >3.99 Ankle Abd Bedoya Brev 10.0 Knee NR >3.99 Knee Ankle 31.0 >37.9 Right Tibial/Medial Plantar Motor (Abd Bedoya Brev) max stim, dispersed, multilobar Ankle 7.5 <7.51 0.2 >3.99 8.13 Ankle Abd Bedoya Brev 7.5 10.0 13 Knee 19.2 0.3 >3.99 10.00 Knee Ankle 11.7 32.0 27 >37.9 H Reflex Studies NR H-Lat (ms) Lat Norm (ms) L-R H-Lat (ms) Left Tibial H-Reflex (Gastroc) 49.04 31.91 11.63 Right Tibial H-Reflex (Gastroc) 37.41 31.91 11.63 EMG Side Muscle Nerve Root Ins Act Fib/ Pos Fasc Other Atrophy Amp Dur Poly Recr Pat Int Pat Comment Right Ext Dig Brev Dp Br Peron L5, S1 0 0 0 0 3+ N 2+ Serr 2- 1- Right Tibialis Ant Dp Br Peron L4-5 0 0 0 0 1+ N 1+ 0 1- N Right Peroneus Long Sup Br Peron L5-S1 0 0 0 0 1+ N 1+ 0 2- N Right Abd Hallucis MedPlantar S1-2 0 0 0 0 3+ 2- 2+ Serr 3- 1- Right Gastroc Med Tibial S1-2 0 0 0 0 0 N 1+ 0 N N Right Vastus Lat Femoral L2-4 0 0 0 0 0 N 1+ 0 N N Right Biceps Fem SH Sciatic L5-S1 Incr 0 0 0 0 N N 0 N N Right Biceps Fem LH Sciatic L5-S2 0 0 0 0 0 N N 0 N N Left Ext Dig Brev Dp Br Peron L5, S1 0 0 0 0 3+ 2- 2+ 0 3- Discr Left Tibialis Ant Dp Br Peron L4-5 0 3+ 0 0 1+ 1- 2+ Serr 3- 2- Left Peroneus Long Sup Br Peron L5-S1 0 0 0 0 1+ N 2+ Serr 3- 1- Left Abd Hallucis MedPlantar S1-2 0 0 0 0 2+ 2- 3+ 0 2- 2- Left Gastroc Med Tibial S1-2 0 2.5+ 0 0 0 N 2+ Serr 2- 1- Left Vastus Lat Femoral L2-4 0 0 0 0 0 N N 0 N N Left Biceps Fem LH Sciatic L5-S2 Incr 0 0 0 0 N N 0 N N Left Biceps Fem SH Sciatic L5-S1 0 1+ 0 0 0 N 1+ 0 N N Abbreviations: Atrop=atrophy; CRD=complex repetitive discharge; Discr=discrete; Doub=doublet; Fasc=fasciculation; FFE=full for effort; Fib=fibrillation; Myokym=myokymia; Crosslake=myotonic potential; N,0=normal; NR=no response; Polyph=polyphasia; Pos=positive [sharp] wave; RFU=rapidly firing units; Serr=serrated potential (2<phases<5); W&W=waxing and waning pattern INTERPRETATION: This study reveals [facility] evidence of a chronic, neuropathic, axonal, sensory > motor process affecting all lower extremity nerves tested. Needle examination demonstrates a [id number]-kk-[id number] gradient that is most suggestive of peripheral neuropathy. This is of very severe degree by electrical criteria. Potential aetiologies include diabetes mellitus, hypothyroidism, deficiencies of B12, B6, or folate, B6 excess, the collagen-vascular diseases, dysglobulinaemias, medications (including chemotherapeutics, diuretics, and others), as a paraneoplastic syndrome, and a considerable number of rarer conditions. There is also a superimposed axonal process affecting the L5 nerve root on the L, with possible overlap to S1 and L4, of moderate degree. The acute findings indicate recent or ongoing injury. There is no suggestion by this study of myopathy or mononeuropathy. The paraspinal muscles were not studied due to the patient's Factor Xa inhibitor anticoagulation, resulting in somewhat lower sensitivity of this study to the presence of any radiculopathy. Oz Kincaid M.D. Diplomate, Citizen Of [place] Board of Psychiatry and Neurology (neurology, epilepsy, sleep medicine) Diplomate, Citizen [place] Board of Clinical Neurophysiology Diplomate, Citizen [place] Board of Preventive Medicine (clinical informatics) . documented in this encounter [facility] 12-15-2024 Evaluation note Diagnosis Onset Date Resolution Allergy to honey bee venom acute December 15 1:46pm Atrial fibrillation acute 2024 1:46pm Current every day smoker acute December 15, 2024 1:46pm Depression acute December 15 2 025 1:46pm Diabetes mellitus with neuropathy acute December 15 1:46pm Insulin dependent diabetes mellitus acute December 15 025 1:46pm Lumbar spondylosis acute December 15, 2024 1:46pm PAD (peripheral artery disease) acute December 15 1:46pm Post-menopausal acute December 152024 1:46pm Screening for breast cancer acute December 15 1:46pm Screening for lung cancer acute December 15 1:46pm Screening for osteoporosis acute December 15 1:46pm Wound of foot acute November 1:46pm BMI 32.0-32.9,adult acute 2024 1:23pm Dietary counseling and surveillance acute January 05 2 025 1:23pm Hyperlipidemia acute January 05, 2025 1:23pm Hypertension acute December 1:23pm Peripheral neuropathy acute Sep tember 2024 1:23pm Type 2 diabetes mellitus acute January 05, 2025 1:23pm Vitamin B 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 S eptember 2024 1:23pm [facility] Work Phone: 1(929) 242-967608-19-2025 Evaluation note* Diagnosis Onset Date Resolution Status Admit Date Allergy to honey bee venom acute December 15, 2024 1:46pm Atrial fibrillation acute 2024 1:46pm Current every day smoker acute December 15, 2024 1:46pm Depression acute December 15, 2 025 1:46pm Diabetes mellitus with neuropathy acute [...] 30.0 to 30.9 in adult acute January 05, 2 025 1:23pm Dietary counseling and surveillance acute [...] of spleen acute Decembe r 2024 2:19pm [facility] Work Phone: 1(840) 994-143008-15-2025 History of Present illness Narrative* Oz Kincaid MD - 12/11/2024 1:15 PM EDT [facility] Patient: Taye Gay [address], [address] , Sex: 1955, Female [place], [place] [address] Height: 168 cm Ref Phys: Debbie Kincaid [...] Amp Neg Dur (ms) Site1 Site2 Delta-0 (ms)Dist (cm) Melvin (m/s) Norm Melvin (m/s) Left [...] Doub=doublet; Fasc=fasciculation; FFE=full for effort; Fib=fibrillation; Myokym=myokymia; Crosslake=myotonic potential; N,0=normal; NR=no response; Polyph=polyphasia; Pos=positive [sharp] wave; RFU=rapidly firing units; Serr =serrated potential (2<phases<5); W&W=waxing and waning pattern INTERPRETATION: This study reveals [facility] evidence of chronic, neuropathic, axonal, sensorimotor processes affecting the median nerves at the wrists bilaterally, consistent with the clinical diagnosis of carpal tunnelsyndrome. These are of moderate degree on the R and mild degree on the L by electrical criteria. Similar processes affect the ulnar nerves at the elbows (ulnar grooves/cubital tunnels),, of mild degree, and at the wrists (Guyon's canals), of very mild degree. Nightly splint use was reinforced to the patient for prophylaxis. Should surgery be contemplated, afollow-up study 6 months afterward, limited to the [...] -- 36 40 Oz Kincaid M.D. Diplomate, Citizen Of [place] Board of Psychiatry and Neurology (neurology, epilepsy, sleep medicine) Diplomate, Citizen Of [place] Board of Clinical Neurophysiology Diplomate, Citizen Of [place] Board of Preventive Medicine (clinical informatics) . documented in this encounterSaint Louis University HospitalVitbjvqisu46-30-6930 History of Present illness Narrative* Karl Fritz DPM - 11/23/2024 2:45 PM EDT [...] if she does decline. documented in this [facility]07-21-2025 History of Present illness Narrative* Karl Fritz DPM - 11/16/2024 4:00 PM EDT [...] to their surgery date. documented in this encounterSaint Louis University HospitalBarjwlblbl36-06-6555 Telephone encounter Note* Telephone Encounter - Cali Duque - 10/21/2024 2:44 PM EDT Patient canceled 10/23/24 EMG on 10/20/24 due to an appointment conflict. [facility] HospitalGgzfofeiig07-01-9570 Miscellaneous Notes* Telephone Encounter - Cali Duque - 10/21/2024 2:44 PM EDT Patient canceled 10/23/24 EMG on 10/20/24 due to an appointment conflict. documented in this encounterSaint Louis University HospitalAfqoetyvpo25-48-4880 History of Present illness Narrative* Karl Fritz DPM - 10/20/2024 10:45 AM EDT Images from the original note were not included. HPI: Patient presents today complaining of an ulcer on the right foot. Patient has pain with walking andstanding due to this lesion. She noticed a [...] with ulceration and/or pain. documented in this encounterSaint Louis University HospitalIwcqzqjgfr27-66-1000 Telephone encounter Note* Telephone Encounter - Cali Laneshreyas - 10/07/2024 3:49 PM EDT Received call from Raine with [facility] they are happy to take her as a client. [facility] Jyjmacgoss54-33-8830 Miscellaneous Notes* Telephone Encounter - Cali Duque - 10/07/2024 3:49 PM EDT Received call from Raine with [facility] they are happy to take her as a client. documented in this encounterSaint Louis University HospitalVztnbfcgkg19-93-0627 History of Present illness Narrative* Oz Kincaid MD - 10/06/2024 1:45 PM EDTAssociated Problem(s): Weakness of both lower extremities --- multifactorial, including PN G62.9, radiculopathy M54.17. Worsening. Redo [facility] BLE (first). Reorder PT - strengthening, balance. Likely will need redo MR L-spine and redo spinal surgery consult. * Oz Kincaid MD - 10/06/2024 1:45 PM EDTAssociated Problem(s): Carpal tunnel syndrome, bilateral --- causing hand weakness R29.898. (Continue splints B nightly.) Redo [facility] BUE due to worsening weakness. * Oz Kincaid MD - 10/06/2024 1:45 PM EDTAssociated Problem(s): Cognitive decline (Continue current regimen.) * Oz Kincaid MD - 10/06/2024 1:45 PM EDTAssociated Problem(s): Cervical paraspinal muscle spasm (Continue current regimen, home PT.) * Oz Kincaid MD - 10/06/2024 1:45 PM EDTAssociated Problem(s): B12 deficiency (Continue B12 SL.) * Oz Kincaid MD - 10/06/2024 1:45 PM EDTAssociated Problem(s): Guyon syndrome, unspecified laterality (Continue avoiding compression.) * Oz Kincaid MD - 10/06/2024 1:45 PM EDT Images from the original note were not included. Outpatient Progress Note Patient: Taye Hollyaton Dept: Neurology : 1955 Appt Date: 10/06/2024 Prev Appt: 07/21/2024 Chief Complaint Patient presents with cognitive decline Appointment Note -- 6 mo Assessment and Plan - Assessment & Plan Weakness of both lower extremities --- multifactorial, including PN G62.9, radiculopathy M54.17. Worsening. Redo [facility] BLE (first). Reorder PT - strengthening, balance. Likely will need redo MR Yao-spine and redo spinal surgery consult. Carpal tunnel [...] 6 weeks (around 11/17/2024), or 6-8 w MANAGER MEDIA; after ENMGs. History of Present Illness, Associated [...] and fingertips; restlessness; gait ataxia. Imaging MR [place] (11/2023, [facility]) - HNP T12-L1 mild ... canal sten L2-3 mod ... errol sten L2-3 modB L4-5-S1 modB US LE (12/2016, [facility]) - atherosclerosis, nl PVR. Testing [facility] (11/2023) - acute L S1 (nEMG) + PN pattern signif worse . . . . (03/2017, [facility]) - PN pattern Labs - T92=062/15/116/>22.3, was 359/16.7H/328/>22.3 ... A1c=8.4, was 10.4(!) ,,, [...] - end of Mar pt adm to [facility] for gen weakness & slurred speech, resolved prior to arrival at ER. MR could not get done. Intermittent a. fib, apparently none since cardioverted. 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 Stoppeddriving 2023 ~August due to gait instability. Does not cook. Daughter has handled the bills for a long time . Imaging MR brain (03/2024) - never done during adm [facility] due to metal . . . . (10/2023, [facility]) - atrophy age-appropriate & ^T2/FLAIR CTA head (03/2024, [facility]) - no stenoses CTA neck(03/2024, [facility]) - < 20% B Testing (q.v.) [...] ___, unchanged: ___, orig: ___ Motor - Radiation / Chemistry Technician 4-R 4L ... APB 4B ... LEs - 4+ throughout (worse), somewhat antalgic, unchanged: ___, orig: Radiation / Chemistry Technician 4B ... APB 4R 4+L Sens - [...] COLPOSCOPY 09/2021 ESOPHAGEAL DILATION HYSTERECTOMY PARTIAL HYSTERECTOMY OR VULVECTOMY SIMPLE PARTIAL 12/2018 TONSILLECTOMY VULVECTOMY 12/2017 [...] Take with meals. Continuous Blood Gluc Sensor ([place] Brent 14 Day Sensor) [facility] apply 1 SENSOR as directed every 14 days use with DEVICE to MONIT... (REFER TO PRESCRIPTION NOTES). cyanocobalamin (Vitamin B-12) 2500 MCG tablet Docusate Sodium (DSS) 100 MG capsule Take 100 mg by mouth in the morning and 100 mg in the evening. donepezil (Aricept) 10 MG tablet 2 tabs QAM 60 tablet 5 Droplet Pen Lumpkin 32G X 4 MM [facility] use 1 PEN NEEDLE to inject MEDICATION [...] file as of 10/06/2024. Oz Kincaid M.D. [facility] ? [address] ? [place], [place] [address] ? ? fax Neurology ? Clinical Neurophysiology ? Epilepsy ? Sleep Disorders ? Clinical Informatics documented in this [facility]06-05-2025 Evaluation note* Diagnosis Onset Date Resolution Status Admit Date Atrial fibrillation acute October 01, 2024 2:34pm [...] bee venom acute December 15, 2024 1:46pm Depression acute December 15, 2 025 1:46pm [facility] Work Phone: 1(555) 951-414506-05-2025 Evaluation note* Diagnosis Onset Date Resolution Status Admit Date Atrial fibrillation acute October 01, 2024 2:34pm [...] 15, 2024 1:46pm Atrial fibrillation acute Augus 2024 1:46pm Current every day smoker acute [...] 1:46pm Wound of foot acute November 1:46pm [facility] Work Phone: 1(333) 540-145605-15-2025 [place] [address] EGD Procedure Note Signed Patient: Taye Gay MR#: [id number] : 1955 Acct:[id number] Age/Sex: 68 / F Adm Date: 5 Loc: Room: Type: [facility] Attending Dr: Manjit Gleason MD Copies to: Sandra Keita, DO Manjit Gleason MD~ Esophagogastroduodenoscopy Date/Provider Date: 09/10/2024 Manjit Gleason [...] MD 09/10/24 1241 Signed By: 09/10/[address] [facility]05-15-2025 [place] [address] Gastroenterology H&P Signed Patient: Taye Gay MR#: [id number] : 1955 Acct:[id number] Age/Sex: 68 / F Adm Date: 5 Loc: Room: Type: [facility] Attending Dr: Manjit Gleason MD Copies to: [...] MD 09/10/24 1233 Signed By: 09/10/[address] [facility]04-29-2025 Chief complaint+Reason for visit Narrative* Chief Complaint [...] Secondary polycythemia October 01, 2024 2: 34pm [facility] Work Phone: 1(522) 979-311804-24-2025 Evaluation note* Diagnosis Onset Date Resolution Status [...] 2024 2:34pm Secondary polycythemia acute 2024 2:34pm [facility] Work Phone: 1(789) 780-408103-26-2025 Evaluation note* Diagnosis Onset Date Resolution Status [...] 9:57am Vitamin B 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 9:57am [facility] Work Phone: 1(961) 750-593603-26-2025 Evaluation note* Diagnosis Onset Date Resolution Status [...] neuropathy acute Apr 2024 1:31pm [facility] Work Phone: 1([phone]) 977-993403-26-2025 Evaluation note* Diagnosis Onset Date Resolution Status [...] 20, 2024 9:57am Peripheral neuropathy acute Apr il 2024 9:57am Type 2 diabetes mellitus acute [...] 1:31pm Lumbar spondylosis acute September 072024 11:01am [facility] Work Phone: 1(321) 534-729703-26-2025 Evaluation note* Diagnosis Onset Date Resolution Status [...] 2024 2:34pm Secondary polycythemia acute 2024 2:34pm [facility] Work Phone: 1(163) 517-712003-25-2025 History of Present illness Narrative* Oz Kincaid MD - 07/21/2024 2:45 PM EDTAssociated Problem(s): Cognitive decline (Continue current regimen.) [facility] records - neuro consults, EEG, MR, [...] & Plan Cognitive decline (Continue current regimen.) [facility] records - neuro consults, EEG, MR, [...] restlessness; gait ataxia. Imaging MR L-s (11/2023, [facility]) - HNP T12-L1 mild; canal sten L2-3 mod; errol sten L2-3 modB L4-5-S1 modB US LE (12/2016, [place]) - atherosclerosis, nl PVR. Testing [facility] (11/2023) - acute L S1 (nEMG) + PN pattern signif worse . . . . (03/2017, [facility]) - PN pattern Labs - Z13=278/15/116/>22.3, was 359/16.7H/328/>22.3 ... A1c=8.4, was 10.4(!) ,,, [...] now that pt is off nortrip. Adm [facility] ~[place] for possible TIA. Walking drunk , Tim. 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 Imaging MR brain (10/2023, [facility]) - not available via [place]IP - [...] ___, orig: ___ Motor - ___, unchanged: Radiation / Chemistry Technician 4B ... APB 4R 4+L, orig: ___ [...] COLPOSCOPY 09/2021 ESOPHAGEAL DILATION HYSTERECTOMY PARTIAL HYSTERECTOMY OR VULVECTOMY SIMPLE PARTIAL 12/2018 TONSILLECTOMY VULVECTOMY 12/2017 [...] Take with meals. Continuous Blood Gluc Sensor ([place] Brent 14 Day Sensor) [facility] apply 1 SENSOR as directed every 14 days use with DEVICE to MONIT... (REFER TO PRESCRIPTION NOTES). cyanocobalamin (Vitamin B-12) 2500 MCG tablet Docusate Sodium (DSS) 100 MG capsule Take 100 mg by mouth in the morning and 100 mg in the evening. donepezil (Aricept) 10 MG tablet Up to 2 QAM if tolerated 60 tablet 3 Droplet [place] 32G X 4 MM [facility] use 1 PEN NEEDLE to inject MEDICATION [...] Take 40 mg by mouth at bedtime [place] SoloStar 300 UNIT/ML injection inject 20 [...] M.D. [facility] ? [address] [facility] [address] ? [place] [address] ? ? fax Neurology ? Clinical Neurophysiology ? Epilepsy ? Sleep Disorders ? Clinical Informatics documented in this encounterSaint Louis University HospitalSblbhekyqk57-84-5018 History of Present illness Narrative* Roland Faust MD - 06/26/2024 9:40 AM EST Subjective [...] Attestation By signing my name below, I, Melina Velázquez LPN , Ernesto attest that this documentation [...] exam, discussion and plan. [facility] Work Phone: 1(263) 429-317602-28-2025 Instructions* Patient Instructions* Melina Lee LPN - [...] 6 months with ekg documented [facility]Tr[facility] Work Phone: 1(703) 746-788101-21-2025 Telephone encounter Note* Telephone Encounter - Cali Duque - 05/19/2024 11:20 AM EST Daughter same day canceled same day canceled today's appointment due to overslept. RS for 06/02/24 [facility] HospitalZhdwzboipr31-76-3865 Miscellaneous Notes* Telephone Encounter - Cali Duque - 05/19/2024 11:20 AM EST Daughter same day canceled same day canceled today's appointment due to overslept. RS for 06/02/24 documented in this encounterSaint Louis University HospitalElwlrgdimx96-10-7834 [place] [address] Neurology Progress Note Signed with Addenda Patient: Taye Gay MR#: [id number] : 1955 Acct:[id number] Age/Sex: 68 / F Adm Date: 4 Loc: 3T Room: [address] [place] [address] Type: ADM IN Attending Dr: Priscilla Lang MD Copies to: ~ ADDENDUM1 Patient has refused to remove her nail maori for MRI. Unable to confirm whether or [...] may be metabolic in nature and not provider relations representative necessarily of transient ischemia or of [...] DO 5 0608 Signed By: 04/30/[address] [facility]01-02-2025 Discharge summary Author Priscilla Lang [facility] Note Date/Time April 30, 2024 10 :28am [facility] ENTER [address] [place], [place] [id number] Discharge Summary Signed Patient: Taye Gay MR#: [id number] : 1955 Acct:[id number] Age/Sex: 68 / F Adm Date: 4 Loc: 3T Room: [address] [place] [address]: Priscilla Lang MD Copies to: [...] taking multiple medications that could potentially cause CONSULTING HR PROFESSIONAL side effect and toxic encephalopathy. Diagnosis is [...] polypharmacy regimen to reduce her risk of CONSULTING HR PROFESSIONAL side effects or drug?drug interaction. At this [...] ask her primary care doctor to obtain [facility] record entirely to address abnormalities seen [...] ask your primary care provider to obtain [facility] records entirely to follow up on [...] or having drug?drug interaction. Discharging you from [facility] does not mean that your medical [...] constipation) (DME) pen needle, diabetic [Sure-Fine Pen Lumpkin] .Route lidocaine 5 % ointment 1 applic [...] % (Auto) 63.5, Lymph % (Auto) 24.9, Gosper % (Auto) 8.3, Eos % (Auto) 2.9, Baso % (Auto) 0.4, Nucleat RBC Rel Count 0.0, Neut # (Auto) 4.6, Lymph # (Auto) 1.8, Gosper # (Auto) 0.6, Eos # (Auto) 0.2, [...] <Electronically signed by Priscilla Lang MD> 04/30/[address] [place] [address] Work Phone: 1(796) 932-523601-02-2025 [place] [address] Discharge Summary Signed Patient: Taye Gay MR#: [id number] : 1955 Acct:[id number] Age/Sex: 68 / F Adm Date: 4 Loc: Room: [address] [place] [address]: Priscilla Lang MD Copies to: [...] taking multiple medications that could potentially cause CONSULTING HR PROFESSIONAL side effect and toxic encephalopathy. Diagnosis is [...] polypharmacy regimen to reduce her risk of CONSULTING HR PROFESSIONAL side effects or drug?drug interaction.At this time, [...] ask her primary care doctor to obtain [facility] record entirely to address abnormalities seen [...] ask your primary care provider to obtain [facility] records entirely to follow up on [...] or having drug?drug interaction. Discharging you from [facility] does not mean that your medical [...] constipation) (DME) pen needle, diabetic [Sure-Fine Pen Lumpkin] .Route lidocaine 5 % ointment 1 applic [...] % (Auto) 63.5, Lymph % (Auto) 24.9, Gosper % (Auto) 8.3, Eos % (Auto) 2.9, Baso % (Auto) 0.4, Nucleat RBC Rel Count 0.0, Neut # (Auto) 4.6, Lymph # (Auto) 1.8, Gosper # (Auto) 0.6, Eos # (Auto) 0.2, [...] MD 04/30/24 1016 Signed By: 04/30/[address] [facility]01-01-2025 Consult note Author Lit Clark [facility] Note Date/Time April 29, 2024 11 :07am [facility] ENTER [address] [place] [address] Neurology Consult Note Signed Patient: Taye Gay MR#: [id number] : 1955 Acct:[id number] Age/Sex: 68 / F Adm Date: 4 Loc: 3T Room: [address] [place] [address] Type: ADM IN Attending Dr: Priscilla Lnag MD Copies to: DO Sandra Garrido DO Rafik Massouh, MD~ HPI Consult Date: 04/29/24 Clerical Receptionist: Lit Clark DO Reason for consult: Slurred [...] negative unless noted below or in HPI [facility] Medical History BMI 32.0-32.9,adult Abnormal thyroid [...] (Stool Softener) 100 mg PO DAILY PRN wfewjggqtrlp78/14/24 [History Confirmed 04/28/24] multivitamin 1 tab PO DAILY 06/12/23 [History Confirmed 04/28/24] pen needle, diabetic [Sure-Fine Pen Lumpkin] 06/12/23 [History Confirmed 04/28/24] metformin 500 mg [...] Oz Bowling M.D.04/28/2024 9:46 PM Dictation Location: [place] [address] 04/28/24 19:44 IMPRESSION: No acute intracranial pathology. No evidence of focal stenosis, aneurysmal dilatation, dissection or occlusion. Impression dictated by: Oz Bowling M.D.04/28/2024 9:44 PM Dictation Location: [place] [address] Assessment/Plan (1) Atrial fibrillation: Qualifiers: Atrial fibrillation [...] may be metabolic in nature and not provider relations representative necessarily of transient ischemia or of [...] <Electronically signed by Lit Clark DO> 04/29/24 1107 [facility] Work Phone: 1(597) 312-410601-01-2025 Progress note Author Priscilla Lang [facility] Note Date/Time April 29, 2024 11 :02am [facility] ENTER [address] [place] [address] Hospitalist Progress Note Signed Patient: Taye Gay MR#: [id number] : 1955 Acct:[id number] Age/Sex: 68 / F Adm Date: 4 Loc: Room: [address] [place] [address] Type: ADM IN Attending Dr: Priscilla Lang [...] of dementia, possible Alzheimer's dementia -continue home zhvzzjalv29 mg twice daily and donepezil 20 mg [...] <Electronically signed by Priscilla Lang MD> 04/29/24 1105 [facility] Work Phone: 1(474) 787-592901-01-2025 [place] [address] Neurology Consult Note Signed Patient: Taye Gay MR#: [id number] : 1955 Acct:[id number] Age/Sex: 68 / F Adm Date: 4 Loc: Room: [address] [place] [address] Type: ADM IN Attending Dr: Priscilla Lang MD Copies to: DO Sandra Garrido DO Rafik Massouh, MD~ HPI Consult Date: 04/29/24 Clerical Receptionist: Lit Clark DO Reason for consult: Slurred [...] negative unless noted below or in HPI [facility] Medical History BMI 32.0-32.9,adult Abnormal thyroid [...] (Stool Softener) 100 mg PO DAILY PRN /14/24 [History Confirmed 04/28/24] multivitamin 1 tab PO DAILY 06/12/23 [History Confirmed 04/28/24] pen needle, diabetic [Sure-Fine Pen Lumpkin] 06/12/23 [History Confirmed 04/28/24] metformin 500 mg [...] days #30 caps 04/20/24 [Rx Confirmed 04/28/24] Ashley SoloStar U-300 Insulin 300 unit/mL (1.5 mL) [...] Oz Bowling M.D.04/28/2024 9:46 PM Dictation Location: [facility] 04/28/24 19:44 IMPRESSION: No acute intracranial pathology. No evidence of focal stenosis, aneurysmal dilatation, dissection or occlusion. Impression dictated by: Oz Bowling M.D.04/28/2024 9:44 PM Dictation Location: [facility]--17 Assessment/Plan (1) Atrial fibrillation: Qualifiers: Atrial fibrillation [...] may be metabolic in nature and not provider relations representative necessarily of transient ischemia or of [...] DO 5 0858 Signed By: 04/29/[address] [facility]01-01-2025 [place] [address] Hospitalist Progress Note Signed Patient: Taye Gay MR#: [id number] : 1955 Acct:[id number] Age/Sex: 68 / F Adm Date: 4 Loc: Room: [address] [place] [address] Type: ADM IN Attending Dr: Priscilla Lang [...] of dementia, possible Alzheimer's dementia -continue home otfizvpmc26 mg twice daily and donepezil 20 mg [...] MD 04/29/24 1059 Signed By: 04/29/[address] [facility]01-01-2025 History and physical note Author Jori Hearn [facility] Note Date/Time April 29, 2024 6: 39am [facility] ENTER [address] [place] [address] Hospitalist H&P Signed Patient: Taye Gay MR#: [id number] : 1955 Acct:[id number] Age/Sex: 68 / F Adm Date: 4 Loc: 3T Room: [address] [place] [address] Type: ADM IN Attending Dr: Jori Hearn DO Copies to: DO Jori Daniels, ~ HPI DATE OF EXAMINATION: 04/29/24 [...] of dementia, possible Alzheimer's dementia -continue home iyzavgyer49 mg twice daily and donepezil 20 mg daily 12. Atrial fibrillation - continue Eliquis 5 mg twice daily for anticoagulationand carvedilol 12.5 mg twice daily. EKG in ER shows NSR 13. Hypoxia - no respiratory distress or cardiopulmonary complaints to accompany this. Will monitor telemetry and address as needed [facility] Medical History BMI 32.0-32.9,adult Abnormal thyroid [...] (Stool Softener) 100 mg PO DAILY PRN oevgoguclwol81/14/24 [History Confirmed 04/28/24] multivitamin 1 tab PO DAILY 06/12/23 [History Confirmed 04/28/24] pen needle, diabetic [Sure-Fine Pen Lumpkin] 06/12/23 [History Confirmed 04/28/24] metformin 500 mg [...] % (Auto) 24.6 % (.) 04/28/24 19:54 Gosper % (Auto) 7.6 % (.) 04/28/24 19:54 Eos % (Auto) 2.7 % (.) 04/28/24 19:54 Baso % (Auto) 1.1 % (.) 04/28/24 19:54 Nucleat RBC Rel Count 0.2 /100 WBC (0-0.5) 04/28/24 19:54 Neut # (Auto) 6.5 x10E3/uL (1.8-7.7) 04/28/24 19:54 Lymph # (Auto) 2.5 x10E3/uL (1.00-4.8) 04/28/24 19:54 Gosper # (Auto) 0.8 x10E3/uL (0.0-0.8) 04/28/24 19:54 [...] pH 5.5 (5.0-9.0) 04/28/24 22:02 Ur Specific [place] 1.038 (1.001-1.030) H 04/28/24 22:02 Urine Protein Negative mg/dL (Negative) 04/28/24 22:02 Urine Glucose (UA) >=1000 mg/dL (Normal) H 04/28/24 22:02 Urine Ketones Negative (Negative) 04/28/24 22:02 Urine Occult Blood 2+ (Negative) H 04/28/24 22:02 Urine Nitrite Negative (Negative) 04/28/24 22: Urine Bilirubin Negative (Negative) 04/28/24 22: Urine Urobilinogen Normal mg/dL (Normal) 04/28/24 22:02 [...] signed by Jori Hearn DO> 04/29/24 0639 [facility] Work Phone: 1(516) 564-299801-01-2025 [place] [address] Hospitalist H&P Signed Patient: Taye Gay MR#: [id number] : 1955 Acct:[id number] Age/Sex: 68 / F Adm Date: 4 Loc: Room: [address] [place] [address] Type: ADM IN Attending Dr: Jori Hearn DO Copies to: DO Jori Daniels, ~ HPI DATE OF EXAMINATION: 04/29/24 [...] RBCs and rare yeast. Shes provided 3 to24 mg of aspirin x [...] of dementia, possible Alzheimer's dementia -continue home qpygvymed64 mg twice daily and donepezil 20 mg daily 12. Atrial fibrillation - continue Eliquis 5 mg twice daily for anticoagulationand carvedilol 12.5 mg twice daily. EKG in ER shows NSR 13. Hypoxia - no respiratory distress or cardiopulmonary complaints to accompany this. Will monitortelemetry and address as needed [facility] Medical History BMI 32.0-32.9,adult Abnormal thyroid [...] History Father Heart disease History of stroke [facility] Problem: Diagnosed with Stroke Cancer [...] (Stool Softener) 100 mg PO DAILY PRN aiyxfcvqwyej12/14/24 [History Confirmed 04/28/24] multivitamin 1 tab PO DAILY 06/12/23 [History Confirmed 04/28/24] pen needle, diabetic [Sure-Fine Pen Lumpkin] 06/12/23 [History Confirmed 04/28/24] metformin 500 mg [...] % (Auto) 24.6 % (.) 04/28/24 19:54 Gosper % (Auto) 7.6 % (.) 04/28/24 19:54 Eos % (Auto) 2.7 % (.) 04/28/24 19:54 Baso % (Auto) 1.1 % (.) 04/28/24 19:54 Nucleat RBC Rel Count 0.2 /100 WBC (0-0.5) 04/28/24 19:54 Neut # (Auto) 6.5 x10E3/uL (1.8-7.7) 04/28/24 19:54 Lymph # (Auto) 2.5 x10E3/uL (1.00-4.8) 04/28/24 19:54 Gosper # (Auto) 0.8 x10E3/uL (0.0-0.8) 04/28/24 19:54 [...] pH 5.5 (5.0-9.0) 04/28/24 22:02 Ur Specific [place] 1.038 (1.001-1.030) H 04/28/24 22:02 Urine Protein [...] DO 04/28/24 57 Signed By: 04/29/[address] [facility] Center12-31-2024 Radiology Diagnostic study note [facility] Main [place] [address] [place] [address] Scan Report Signed Patient: Taye Gay MR#: [id number] : 1955 Acct:[id number] Age/Sex: 68 / F ADM Date: 4 Loc: ER Room: Type: [facility] ER Attending Dr: Copies to: Wesley Villafuerte PA-C~ Ordering Provider: Wesley Villafuerte PA-C Date of Service: 04/28/24 CT/CT angio head: weakness ([id number]) CT/CT angio neck: weakness ([id number]) CT/CT head/brain wo con: weakness CT head/brain [...] Oz Bowling M.D.04/28/2024 9:44 PM Dictation Location: [place] [address] Transcribed By: [facility] 04/28/242143 Dictated By: Oz Bowling II, MD 04/28/242129 Signed By: 04/28/242143 [facility] Work Phone: 1(844) 484-518212-31-2024 Evaluation note* Diagnosis Onset Date Resolution Status [...] attack) acut e May 07, 2024 1:02pm [facility] Work Phone: 1(399) 276-820612-31-2024 Evaluation note* Diagnosis Onset Date Resolution Status Admit Date High granulocyte count acute De 2023 9:53am Secondary polycythemia acute 2023 9:53am BMI 32.0-32.9,adult acute Decem 2023 11:14am Chronic kidney disease (CKD) stage G2/A2, mildly decreased glomerular filtr acute April 28, 2024 11:14am Dietary counseling and surveillance acute April 28, 11:14am Hyperlipidemia acute March 312023 11:14am Hypertension acute March 11:14am Peripheral neuropathy acute Mar 11:14am Type 2 diabetes mellitus acute April 28, 2024 11:14am Vitamin B 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 D ecember 2023 11:14am Atrial fibrillation acute Decem 2023 10:38pm Generalized weakness acute Dece mb2023 10:38pm Insulin dependent diabetes mellitus acute April 28, 10:38pm TIA (transient ischemic attack) acut e [...] disease) acut e July 22, 2024 10:54am [facility] Work Phone: 1(875) 977-220612-17-2024 Evaluation note* Diagnosis Onset Date Resolution Status [...] e April 28, 2024 10:38pm [facility] Work Phone: 1(627) 635-341012-17-2024 Evaluation note* Diagnosis Onset Date Resolution Status Admit Date High granulocyte count acute De cem2023 9:30am Secondary polycythemia acute De cem2023 9:30am BMI 32.0-32.9,adult acute Decem 2023 11:14am [...] attack) acut e April 28, 2024 10:38pm [facility] Work Phone: 1(258) 988-444712-17-2024 Evaluation note* Diagnosis Onset Date Resolution Status Admit Date High granulocyte count acute De cember 2023 9:30am Secondary polycythemia acute De cember 2023 9:30am High granulocyte count acute De cem2023 9:53am Secondary polycythemia acute De cember 2023 9:53am BMI 32.0-32.9,adult acute Decem 2023 [...] nicotine dependence acute May 07, 2024 1:02pm [facility] Work Phone: 1(149) 843-189812-17-2024 Evaluation note* Diagnosis Onset Date Resolution Status [...] mb2023 10:38pm Insulin dependent diabetes mellitus acute Max 31st, 2 024 10:38pm TIA (transient ischemic attack) acut e April 28, 2024 10:38pm Cigarette nicotine dependence acute May 07, 2024 1:02pm Disordered sleep acute May 07, 2024 1:02pm Hypotension acute May 07, 2024 1:02pm Stool incontinence acute Chelir y 2024 1:02pm TIA (transient ischemic attack) acut e May 07, 2024 1:02pm [facility] Work Phone: 1(998) 850-666312-11-2024 History of Present illness Narrative* Karl Fritz [...] RTC: 2 weeks. documented in this encounterSaint Louis University HospitalIaahauidwg66-40-9928 History of Present illness Narrative* Oz Kincaid [...] in about 6 months (around 10/06/2024), or MANAGER MEDIA. History of Present Illness, Associated Treatments and [...] Restlessness well controlled. Imaging MR L-s (11/2023, [facility]) - HNP T12-L1 mild; canal sten L2-3 mod; errol sten L2-3 modB L4-5-S1 modB US LE (12/2016, Ac) - atherosclerosis, nl PVR. Testing [facility] (11/2023) - acute L S1 (nEMG) + PN pattern signif worse . . . . (03/2017, [facility]) - PN pattern Labs - I99=496/15/116/>22.3, was 359/16.7H/328/>22.3 ... A1c=8.4, was 10.4(!) ,,, [...] nortrip. Onset Semeiology Imaging MR brain (10/2023, [facility]) - not available via OHIP - [...] ___, orig: ___ Motor - ___, unchanged: Radiation / Chemistry Technician 4B ... APB 4R 4+L, orig: ___ [...] COLPOSCOPY 09/2021 ESOPHAGEAL DILATION HYSTERECTOMY PARTIAL HYSTERECTOMY OR VULVECTOMY SIMPLE PARTIAL 12/2018 TONSILLECTOMY VULVECTOMY 12/2017 [...] in the morning. Continuous Blood Gluc Sensor ([place] Brent 14 Day Sensor) [facility] apply 1 SENSOR as directed every 14 [...] if tolerated 60 tablet 3 Droplet Pen Lumpkin 32G X 4 MM [facility] use 1 PEN NEEDLE to inject MEDICATION [...] M.D. [facility] Neurology ? [address] [facility] [address] ? [place], [place] [address] ? ? fax Neurology ? Clinical Neurophysiology ? Epilepsy ? Sleep Disorders ? Clinical Informatics documented in this encounterSaint Louis University HospitalBkaufifoyx94-77-8209 History of Present illness Narrative* Roland Faust [...] Scribe Attestation By signing my name below, Catia Vania Yinka DE [place] ROS[place], Scribe attest that this [...] exam, discussion and plan. documented in this [facility] Work Phone: 1(660) 149-199011-27-2024 Instructions* Patient Instructions* Dave Meneses MA - [...] time of your visit. documented in this [facility] Work Phone: [phone]) 115-376210-29-2024 History of Present illness Narrative* Oz Kincaid MD - 02/25/2024 2:43 PM EDTAssociated Problem(s): BEATRICE positive Get Dr. Gonzalez's note (2nd request). * Oz Kincaid MD - 02/25/2024 2:15 PM EDTAssociated Problem(s): Cognitive decline Add memantine 10 -> bid. Then add donepezil 10, titrate. Handout. Get MR images transferred to [facility] PACS for my review. * [facility] for [facility]. Neurogenic [...] Restlessness well controlled. Imaging MR L-s (11/2023, [facility]) - HNP T12-L1 mild; canal sten L2-3 mod; errol sten L2-3 modB L4-5-S1 modB US LE (12/2016, [facility]) - atherosclerosis, nl PVR. Testing [facility] (11/2023) - acute L S1 (nEMG) + PN pattern signif worse . . . . (03/2017, [facility]) - PN pattern Labs - J51=391/15/116/>22.3, was 359/16.7H/328/>22.3 ... A1c=8.4, was 10.4(!) ,,, [...] nortrip. Onset Semeiology Imaging MR brain (10/2023, [facility]) - not available via OHIP - [...] ___, orig: ___ Motor - ___, unchanged: Radiation / Chemistry Technician 4B ... APB 4R 4+L, orig: ___ [...] COLPOSCOPY 09/2021 ESOPHAGEAL DILATION HYSTERECTOMY PARTIAL HYSTERECTOMY OR VULVECTOMY SIMPLE PARTIAL 12/2018 TONSILLECTOMY VULVECTOMY 12/2017 [...] in the morning. Continuous Blood Gluc Sensor ([place] Brent 14 Day Sensor) [facility] apply 1 SENSOR as directed every 14 days use with DEVICE to MONIT... (REFER TO PRESCRIPTION NOTES). cyanocobalamin (Vitamin B-12) 2500 MCG tablet cyclobenzaprine (Flexeril) 10 MG tablet 1-2 tabs QHS 60 tablet 3 Docusate Sodium (DSS) 100 MG capsule Take 100 mg by mouth in the morning and 100 mg in the evening. Droplet [place] 32G X 4 MM [facility] use 1 PEN NEEDLE to inject MEDICATION [...] ? [address] ? [place], [place] [address] ? ? fax Neurology ? Clinical Neurophysiology ? Epilepsy ? Sleep Disorders ? Clinical Informatics documented in this encounterSaint Louis University HospitalHmqxhxfjac80-68-9215 History of Present illness Narrative* Karl Fritz DPM - 02/10/2024 2:00 PM EDT Images from the original note were not included. HPI: Patient presents today complaining of an ulcer on the plantar 1st met right foot. They have noticedthis for the past month (10/2023). Patient has pain with walking and standing due to this lesion. Patient has tried [facility] for treatment, x-ray, antibiotic, (not taking [...] RTC: 2 weeks. documented in this encounterSaint Louis University HospitalKpjyhjxvrd09-95-2076 History of Present illness Narrative* Karl Fritz [...] week for recheck. documented in this encounterSaint Louis University HospitalCvynwzsppc37-12-5388 History of Present illness Narrative* Karl Fritz [...] week for recheck. documented in this encounterSaint Louis University HospitalYsgpzyzqru06-31-7257 Telephone encounter Note* Telephone Encounter - Cali Duque - 01/10/2024 2:34 PM EDT Called and spoke with Corinna twice both times got disconnected. On purpose or by accident not sure, second time Corinna was given Dr Kincaid's answer. Not sure if she got full and complete answer, but she got enough of it. [facility] University HospitalSgzajywtpx68-52-1235 Miscellaneous Notes* Telephone Encounter - Cali Duque [...] x several days, then 300 bid Corinna [phone] documented in this encounterSaint Louis University HospitalKludawvwdj05-37-4368 Telephone encounter Note* Telephone Encounter - Cali Duque - 01/08/2024 12:37 PM EDT Daughter (Corinna Ayala) called, She was talking with Taye's Nurse, They would like to know if Gabapentin would be a better option for Taye than the PGB? You just inc her PGB from 1 cap bid to 150/300 x several days, then 300 bid Corinna [phone] [facility] HospitalXkvrwcozjw02-83-4258 History of Present illness Narrative* Oz Kincaid [...] Restlessness well controlled. Imaging MR L-s (11/2023, [facility]) - HNP T12-L1 mild; canal sten L2-3 mod; errol sten L2-3 modB L4-5-S1 modB US LE (12/2016, [facility]) - atherosclerosis, nl PVR. Testing [facility] (11/2023) - acute L S1 (nEMG) + PN pattern signif worse . . . . (03/2017, [facility]) - PN pattern Labs - C55=751/15/116/>22.3, was 359/16.7H/328/>22.3 ... A1c=8.4, was 10.4(!) ,,, [...] ___, orig: ___ Motor - ___, unchanged: Radiation / Chemistry Technician 4B ... APB 4R 4+L, orig: ___ [...] COLPOSCOPY 09/2021 ESOPHAGEAL DILATION HYSTERECTOMY PARTIAL HYSTERECTOMY OR VULVECTOMY SIMPLE PARTIAL 12/2018 TONSILLECTOMY VULVECTOMY 12/2017 [...] Gluc Sensor (FreeStyle Brent 14 Day Sensor) [facility] apply 1 SENSOR as directed every 14 days use with DEVICE to MONIT... (REFER TO PRESCRIPTION NOTES). cyanocobalamin (Vitamin B-12) 2500 MCG tablet Docusate Sodium (DSS) 100 MG capsule Take 100 mg by mouth in the morning and 100 mg in the evening. Droplet [place] 32G X 4 MM [facility] use 1 PEN NEEDLE to inject MEDICATION [...] Oz Kincaid M.D. documented in this encounterSaint Louis University HospitalXwpwyozzgz29-69-8697 History of Present illness Narrative* Karl Fritz [...] due to this lesion. Patient has tried [facility] for treatment, x-ray, antibiotic, (not taking [...] dressing changes to the ulceration site with collagen, sean. She does have C and updated orders [...] RTC: 2 weeks. documented in this encounterSaint Louis University HospitalXfkpvvpruu13-28-4466 History of Present illness Narrative* Oz Kincaid [...] Oz Kincaid M.D. documented in this encounterSaint Louis University HospitalVovknmnkcj35-56-3245 History of Present illness Narrative* Roland Faust [...] exam, discussion and plan. documented in this [facility] Work Phone: 1(730) 650-139208-19-2024 Instructions* Patient Instructions* Sofie Dean LPN - [...] to Increase physical activity. documented in this [facility] Work Phone: 1(876) 110-141807-17-2024 History of Present illness Narrative* Jonas Ch [...] Cardiology 2. Nonischemic cardiomyopathy (Multi) Resolved with catholic of sinus rhythm 3. Hypercholesteremia Review of [...] exam, discussion and plan. documented in [facility]Tr[facility] Work Phone: 1(840) 434-746307-17-2024 Instructions* Patient Instructions* Dakota Barraza RN - [...] to Increase physical activity documented in this encounterTrinity Health System Work Phone: 1(413) 430-810307-15-2024 Progress note Author Chaka Frye [facility] November 11, 2023 4:15pm Note Date/Time November 11, 2023 4:15 pm [facility] [address] [place] [address] Hospitalist Progress Note Signed Patient: Taye Gay MR#: [id number] : 1955 Acct:[id number] Age/Sex: 67 / F Adm Date: 4 Loc: 4N Room: [address] [place] [address] Type: ADM IN Attending Dr: Chaka Frye [...] 09:00 11/11/23 08:44 Aspirin 81 Mg Tablet.Dr MINOR 11/09/24 08:59 [...] signed by Chaka Frye MD> 11/11/23 1614 [facility] Work Phone: 1([phone]) 889-286707-15-2024 Consult note Author Lit Clark [facility] November 11, 2023 3:11pm Note Date/Time November 11, 2023 10:4 3am [facility] [address] [place] [address] Neurology Consult Note Signed Patient: Taye Gay MR#: [id number] : 1955 Acct:[id number] Age/Sex: 67 / F Adm Date: 4 Loc: 4N Room: 9R0850-2 Type: ADM IN Attending Dr: Chaka Frye MD Copies to: DO Geraldo Garrido MD, RES MD Sandra Mar DO~ HPI Consult Date: 11/11/23 Clerical Receptionist: Geraldo Vo MD, RES Reason for consult: Progressive generalized weakness Consult Narrative HPI: Taye Gay is a 67 y.o. female with a PMH of esophageal stricture, cigarette smoker, GERD, HTN, type 2 diabetes mellitus, HLD, CKD stage G2/A2, peripheral neuropathy and vit B12 deficiency who presented to [facility] on 11/10/23 for concerns regarding generalized weakness. Neurology was consulted for evaluation of generalized weakness. Additional HPI is noted in Assessment and Plan. [facility] Medical History History of esophageal stricture [...] History Father Heart disease [facility]: Diagnosed with Stroke Cancer [...] Confirmed 11/09/23] pen needle, diabetic [Sure-Fine Pen Lumpkin] 06/12/23 [History Confirmed 11/09/23] omeprazole 20 mg [...] Oz Bowling M.D.11/10/2023 1:15 PM Dictation Location: [place] [address] Therapy Recommendations Therapy Recommendations: OT Recommendations OT Recommended Discharge [facility] Facility Location OT Recommended Services at Physical Therapy,Occupational Therapy Discharge PT Recommendations PT Recommended Discharge [facility] Facility Location PT Recommended Services at Physical Therapy,Occupational Therapy Discharge Assessment/Plan (1) Ambulatory dysfunction: (2) Weakness: (3) Hypothyroid: Qualifiers: Hypothyroidism type: unspecified Qualified Code(s): E03.9 - Hypothyroidism, unspecified (4) Hypomagnesemia: (5) Type 2 diabetes mellitus with hyperglycemia: Qualifiers: Diabetes mellitus chcf insulin use: unspecified chcf insulin use status Qualified Code(s): E11.65 - Type 2 diabetes mellitus with hyperglycemia (6) Vitamin B 12 deficiency: Plan CONSULT REASON: Generalized weakness HPI: Taye Gay is a 67 y.o. female with a PMH of esophageal stricture, cigarette smoker, GERD, HTN, type 2 diabetes mellitus, HLD, CKD stage G2/A2, peripheral neuropathy and vit B12 deficiency who presented to [facility] on 11/10/23 for concerns regarding [...] signed by MD GAGE Vo> 11/11/23 1043 [facility] Work Phone: 1(665) 275-761407-14-2024 Progress note Author Kirt Renae [facility] November 10, 2023 12:24pm Note Date/Time November 10, 2023 12:0 0pm [facility] [address] [place] [address] Hospitalist Progress Note Signed Patient: Tyae Gay MR#: [id number] : 1955 Acct:[id number] Age/Sex: 67 / F Adm Date: 4 Loc: 4 Room: 6E5087-5 Type: ADM IN Attending Dr: Kirt Renae [...] ESR and CRP -Obtain anti Sushma, Anti EMG TECHNICIAN, anti dsDNA -Obtain CT head without contrast [...] code Documented By: Kirt Renae MD 11/10/23 0918 Signed By: <Electronically signed by Kirt Renae MD> 11/10/23 3685 [facility] Work Phone: 1(363) 336-294107-14-2024 History and physical note Author Jluis Campos [facility] November 10, 2023 6:20am Note Date/Time November 10, 2023 6:11 am [facility] [address] [place] [address] Hospitalist H&P Signed Patient: Taye Gay MR#: [id number] : 1955 Acct:[id number] Age/Sex: 67 / F Adm Date: 4 Loc: Room: [address] [place] [address] Type: ADM IN Attending Dr: Jluis Campos DO Copies to: DO Jluis Daniels, DO~ HPI DATE OF EXAMINATION: 11/10/23 CHIEF COMPLAINT: weakness HISTORY OF PRESENT ILLNESS: Miss Gya is a 67-year-old female with a past [...] negative unless noted below or in HPI [facility] Medical History History of esophageal stricture [...] History Father Heart disease History of stroke [facility] Problem: Diagnosed with Stroke Cancer [...] Confirmed 11/09/23] pen needle, diabetic [Sure-Fine Pen Lumpkin] 06/12/23 [History Confirmed 11/09/23] omeprazole 20 mg [...] weaknesses were noted, patient unable to ambulate. Bgqs-tz-ajeo test was normal. No tremors or ataxia with gfqgtx-uw-qpqw movements. Neuro: AOx3, CN II-VII intact. Moves [...] % (Auto) 26.0 % (.) 11/10/23 03:41 [place] % (Auto) 8.2 % (.) 11/10/23 03:41 Eos % (Auto) 3.7 % (.) 11/10/23 03:41 Baso % (Auto) 0.9 % (.) 11/10/23 03:41 Nucleat RBC Rel Count 0.1 /100 WBC (0-0.5) 11/10/23 03:41 Neut # (Auto) 5.2 x10E3/uL (1.8-7.7) 11/10/23 03:41 Lymph # (Auto) 2.2 x10E3/uL (1.00-4.8) 11/10/23 03:41 [place] # (Auto) 0.7 x10E3/uL (0.0-0.8) 11/10/23 03:41 [...] pH 6.0 (5.0-9.0) 11/10/23 05:02 Ur Specific [place] 1.007 (1.001-1.030) 11/10/23 05:02 Urine Protein Negative [...] 0607 Signed By: <Electronically signed by Jluis Campos, > 11/10/23 0620 [facility] Work Phone: [phone]) 704-495407-09-[address] [facility] History of Present illness Narrative* [...] to make adjustments and amiodarone before my long term. Vitals: 10/07/23 0948 BP: 114/90 BP Location: [...] mellitus with other specified complication, unspecified whether chcf insulin use (Multi) Managed by other providers 7. BMI 28.0-28.9,adult The merits of diet and weight loss were advocated Scribe Attestation By signing my name below, ISofie RJ , Scribe attest that this documentation has [...] exam, discussion and plan. documented in this encounterTr[facility] Work Phone: 1(390) 870-125806-10-2024 Instructions* Patient Instructions* Cary Mcdonnell RN - [...] Fall Prevention Education Given documented in this encounterTrinity [facility] System Work Phone: 1(575) 458-769105-18-2024 Progress note Author Faraz Gilliam [facility] September 14, 2023 1:34pm Note Date/Time September 14, 2023 1:26p m [facility] [address] [place] [address] Cardiology Progress Note Signed Patient: Taye Gay MR#: [id number] : 1955 Acct:[id number] Age/Sex: 67 / F Adm Date: 4 Loc: Room: [address] [place] [address] Type: ADM IN Attending Dr: Elva Florian [...] Documented By: Faraz Gilliam MD 08/27 12/20 1329 Signed By: <Electronically signed by Faraz Gilliam MD> 09/14/23 1335 [facility] Work Phone: 1(487) 448-627405-18-2024 Progress note Author Elva Florian [facility] September 14, 2023 2:03am Note Date/Time September 13, 2023 6:15p m [facility] [address] [place] [address] Hospitalist Progress Note Signed Patient: Taye Gay MR#: [id number] : 1955 Acct:[id number] Age/Sex: 67 / F Adm Date: 4 Loc: 3T Room: [address] [place] [address] Type: ADM IN Attending Dr: Elva Florian [...] Tablet. PO 09/12/24 08:59 81 mg DAILY PARMJTI Administration Atorvastatin Calcium 10 mg 09/13/23 09:00 [...] Tablet PO 09/12/24 08:59 1 mg DAILY [facility] Administration Glucose 0 gm 09/12/23 20:04 Dextrose 40% Gel 15 Gm Tube PO 09/11/24 20:03 PRN PRN Hypoglycemia Insulin Aspart 0 units 09/12/23 22:00 09/13/23 16:24 Insulin Aspart 300 Units/3 Ml Insuln.Pen SUBCUT 09/11/24 21:59 Not Given TID.WM.HS [facility] Protocol Insulin Glargine 20 units 09/13/23 09:00 09/13/23 08:40 Insulin Glargine 300 Units/3 Ml Insuln.Pen SUBCUT 09/12/24 08:59 20 units DAILY [facility] Administration Metoprolol Succinate 50 mg 09/14/23 09:00 Metoprolol Succinate 50 Mg Tab.Er.24h PO 09/13/24 08:59 DAILY [facility] Metoprolol Tartrate 5 mg 09/12/23 20:04 09/13/23 [...] 09/13/23 09:00 09/13/23 08:38 Pantoprazole 40 Mg Tablet. PO 09/12/24 08:59 40 mg DAILY PARMJIT [...] Plan Documented By: Elva Florian MD 09/13/23 5936 Signed By: <Electronically signed by Elva Florian MD> 09/14/23 0201 [facility] Work Phone: 1(781) 222-659405-17-2024 Consult note Author Jonas Ch [facility] September 13, 2023 12:25pm Note Date/Time September 13, 2023 12:26 pm [facility] [address] [place] [address] Cardiology Consult Note Signed Patient: Taye Gay MR#: [id number] : 1955 Acct:[id number] Age/Sex: 67 / F Adm Date: 4 Loc: Room: [address] [place] [address] Type: ADM INOo Attending Dr: Elva Florian [...] and no additional complaints, except as documented [facility] Medical History History of esophageal stricture [...] Confirmed 09/12/23] pen needle, diabetic [Sure-Fine Pen Lumpkin] 06/12/23 [History Confirmed 09/12/23] nortriptyline 50 mg [...] x10E3/uL Lymph # (Auto) 2.0 (1.00-4.8) x10E3/uL Gos[place] # (Auto) 0.6 (0.0-0.8) x10E3/uL Eos # [...] ml @ 999 mls/hr IV .Q1H1M ONE Rx#:[id number] Oral 50 / 50 Output: Urine 600 [...] signed by MD Jonas Ch> 09/13/23 1225 [facility] Work Phone: 1([phone]) 884-929505-17-2024 History and physical note Author Elva Florian [facility] September 13, 2023 2:09am Note Date/Time September 12, 2023 7:53p m [facility] [address] [place] [address] Hospitalist H&P Signed Patient: Taye Gay MR#: [id number] : 1955 Acct:[id number] Age/Sex: 67 / F Adm Date: 4 Loc: 3T Room: [address] [place] [address] Type: ADM INOo Attending Dr: Elva Florian [...] care Discussed with:?the medical team, the patient [facility] Medical History History of esophageal stricture [...] Confirmed 09/12/23] pen needle, diabetic [Sure-Fine Pen Lumpkin] 06/12/23 [History Confirmed 09/12/23] nortriptyline 50 mg [...] % (Auto) 20.2 % (.) 09/12/23 14:51 [place] % (Auto) 5.9 % (.) 09/12/23 14:51 Eos % (Auto) 1.7 % (.) 09/12/23 14:51 Baso % (Auto) 0.9 % (.) 09/12/23 14:51 Nucleat RBC Rel Count 0.2 /100 WBC (0-0.5) 09/12/23 14:51 Neut # (Auto) 7.0 x10E3/uL (1.8-7.7) 09/12/23 14:51 Lymph # (Auto) 2.0 x10E3/uL (1.00-4.8) 09/12/23 14:51 [place] # (Auto) 0.6 x10E3/uL (0.0-0.8) 09/12/23 14:51 [...] <Electronically signed by Elva Florian MD> 09/13/23208 [facility] Work Phone: 1(528) 280-837202-12-2024 Evaluation note* Encounter Date Diagnosis Assessment Notes Treatment Notes Treatment Clinical Notes May, Type 2 diabetes mellitus with hyperglycemia (ICD-10 - E11.65) [employer] Other 01-23-2024 Evaluation note* Encounter Date Diagnosis Assessment Notes Treatment Notes Treatment Clinical Notes Apr, Primary insomnia (ICD-10 - F51.01) [employer] Other 12-11-2023 Evaluation note* Encounter Date Diagnosis Assessment Notes Treatment Notes Treatment Clinical Notes Mar, Type 2 diabetes mellitus with hyperglycemia (ICD-10 - E11.65) [employer] Other 11-06-2023 Evaluation note* Encounter Date Diagnosis [...] Discussed can start famotidine PRN breakthrough GERD [employer] Other 10-02-2023 Evaluation note* Encounter Date Diagnosis Assessment Notes Treatment Notes Treatment Clinical Notes Jan, Primary insomnia (ICD-10 - F51.01) [employer] Other 09-11-2023 Evaluation note* Encounter Date Diagnosis Assessment Notes Treatment Notes Treatment Clinical Notes Dec, Type 2 diabetes mellitus with hyperglycemia (ICD-10 - E11.65) Managing type 2 diabetes material was published 1. Controlled, Type 2 diabetes with A1c 6.3% 2. Blood glucose levels improved. According to [employer] cgm download 12/25/2022- 3: Avg glucose 156. [...] to make it easier material was published [facility] Communications Other 09-06-2023 Evaluation note* Encounter Date Diagnosis Assessment Notes Treatment Notes Treatment Clinical Notes Dec, Esophageal stricture (ICD-10 - K22.2) Dec, Dysphagia (ICD-10 - R13.10) Patient has a narrow esophagus but is improving Patient is to continue omeprazole daily [employer] Other 09-01-2023 Evaluation note* Encounter Date Diagnosis Assessment Notes Treatment Notes Treatment Clinical Notes Dec, Primary insomnia (ICD-10 - F51.01) [employer] Other 08-22-2023 Evaluation note* Encounter Date Diagnosis Assessment Notes Treatment Notes Treatment Clinical Notes Nov, Primary insomnia (ICD-10 - F51.01) [employer] Other 08-02-2023 Evaluation note* Encounter Date Diagnosis [...] reviewed and amended by provider signed below. [employer] Other 07-11-2023 Evaluation note* Encounter Date Diagnosis Assessment Notes Treatment Notes Treatment Clinical Notes Oct, Primary insomnia (ICD-10 - F51.01) [employer] Other 06-01-2023 Evaluation note* Encounter Date Diagnosis Assessment Notes Treatment Notes Treatment Clinical Notes Sep, Type 2 diabetes mellitus with hyperglycemia (ICD-10 - E11.65) Managing type 2 diabetes material was published 1. Controlled, Type 2 diabetes with A1c 6.6% 2. Blood glucose levels improved. According to [employer] cgm download 09/13/2022- 3: Avg glucose 151. 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) Sep, Peripheral neuropathy (ICD-10 - G62.9) Living with peripheral neuropathy material was published Sep, Vitamin B 12 deficiency (ICD-10 - E53.8) Good food sources of vitamin B12 material was published 08/2022 Vit b12 392 at target Sep, BMI 29.0-29.9,adult (ICD-10 - Z68.29) Eating healthy: tips to make it easier material was published [employer] Other 05-15-2023 Evaluation note* Encounter Date Diagnosis Assessment Notes Treatment Notes Treatment Clinical Notes August, Primary hypertension (ICD-10 - I10) August, Type 2 diabetes mellitus with hyperglycemia (ICD-10 - E11.65) [employer] Other 04-13-2023 Evaluation note* Encounter Date Diagnosis [...] Due for LDCT for lung CA screening [employer] Other 04-10-2023 Evaluation note* Encounter Date Diagnosis Assessment Notes Treatment Notes Treatment Clinical Notes Jul, Primary insomnia (ICD-10 - F51.01) [employer] Other 03-08-2023 Evaluation note* Encounter Date Diagnosis Assessment Notes Treatment Notes Treatment Clinical Notes Jun, Primary insomnia (ICD-10 - F51.01) [employer] Other 02-21-2023 Evaluation note* Encounter Date Diagnosis Assessment Notes Treatment Notes Treatment Clinical Notes May, Type 2 diabetes mellitus with hyperglycemia (ICD-10 - E11.65) [employer] Other 02-20-2023 Evaluation note* Encounter Date Diagnosis Assessment Notes Treatment Notes Treatment Clinical Notes May, Type 2 diabetes mellitus with hyperglycemia (ICD-10 - E11.65) Managing type 2 diabetes material was published 1. Uncontrolled, Type 2 diabetes with A1c 7.1% 2. Blood glucose levels improved. According to [employer] cgm download 06/04/2022-06/17/2022 : Avg glucose 180. 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) May, Peripheral neuropathy (ICD-10 - G62.9) Living with peripheral neuropathy material was published May, Vitamin B 12 deficiency (ICD-10 - E53.8) Good food sources of vitamin B12 material was published 08/2021 Vit b12 368 at target May, BMI 35.0-35.9,adult (ICD-10 - Z68.35) Setting weight-loss goals material was published [employer] Other 02-06-2023 Evaluation note* Encounter Date Diagnosis Assessment Notes Treatment Notes Treatment Clinical Notes May, Primary insomnia (ICD-10 - F51.01) [employer] Other 01-26-2023 Evaluation note* Encounter Date Diagnosis Assessment Notes Treatment Notes Treatment Clinical Notes Apr, Hyperlipidemia (ICD-10 - E78.5) [employer] Other 12-06-2022 Evaluation note* Encounter Date Diagnosis Assessment Notes Treatment Notes Treatment Clinical Notes Mar, Type 2 diabetes mellitus with hyperglycemia (ICD-10 - E11.65) [employer] Other 10-19-2022 Evaluation note* Encounter Date Diagnosis Assessment Notes Treatment Notes Treatment Clinical Notes Jan, Primary hypertension (ICD-10 - I10) [employer] Other 09-13-2022 Evaluation note* Encounter Date Diagnosis Assessment Notes Treatment Notes Treatment Clinical Notes Dec, Type 2 diabetes mellitus with hyperglycemia (ICD-10 - E11.65) Managing type 2 diabetes material was published 1. Uncontrolled, Type 2 diabetes with A1c 7.7% 2. Blood glucose levels above target. According to [employer] cgm download 12/26/2021- 2: Avg glucose 211. [...] given. Sent order for toujeo to deisy tavia. Dec, Dietary counseling and surveillance (ICD-10 - [...] last visit, continue with weight loss efforts [employer] Other 08-17-2022 Progress note Author Walter Montgomery [facility] December 13, 2021 8:52am Note Date/Time December 13, 2021 8: 52am [facility] [address] [place] [address] General Surgery Progress Note Signed Patient: Taye Gay MR#: [id number] : 1955 Acct:[id number] Age/Sex: 66 / F Adm Date: 2 Loc: Room: [address] [place] [address] Type: ADM ELIZABETHo Attending Dr: Wilmer Vance MD Copies to: [...] 12/09/21] insulin lispro 100 unit/mL subcutaneous pen [facility]) 1 sliding scale dose [...] 81 Mg Tablet.) 81 mg PO DAILY [facility] Stop: 12/10/22 08:59 Last Admin: 12/12/21 10:33 Dose: Not Given Atorvastatin Calcium (Atorvastatin 10 Mg Tablet) 10 mg PO DAILY [facility] Stop: 12/10/22 08:59 Last Admin: 12/12/21 10:33 Dose: Not Given Cyanocobalamin (Cyanocobalamin 1,000 Mcg Tablet) 1,000 mcg PO DAILY [facility] Stop: 12/13/22 08:59 Dextrose (Dextrose 50% In Water 25 Gm/50 Ml Syringe) 0 gm IV-PUSH PRN PRN PRN Reason: Hypoglycemia Stop: 12/09/22 11:18 Docusate Sodium (Docusate 100 Mg Capsule) 100 mg PO TID [facility] Stop: 12/12/22 21:59 Last Admin: 12/12/21 [...] 50 mls @ 100 mls/hr IV Q24H [facility] Last Admin: 12/12/21 11:57 Dose: 100 mls/hr Sodium Chloride (0.9% Sodium Chloride 1,000 Ml) 1,000 mls @ 100 mls/hr IV .[id number] Stop: 12/12/22 00:00 Last Infusion: 12/13/21 03:35 Dose: Infused Lactated Ringer's (Lactated Ringers) 1,000 mls @ 20 mls/hr IV .Q24H ONE Stop: 12/13/21 11:13 Last Infusion: 12/13/21 03:31 Dose: Infused Insulin Aspart (Insulin Aspart 300 Units/3 Ml Insuln.Pen) 0 units SUBCUT TID.WM.[facility]; Protocol Stop: 12/09/22 11:59 Last Admin: 12/13/21 08:07 Dose: 4 units Nortriptyline HCl (Nortriptyline 25 Mg Capsule) 50 mg PO BID [facility] Stop: 12/09/22 20:59 Last Admin: 12/12/21 22:27 Dose: 50 mg Omeprazole (Omeprazole 20 Mg Capsule.Dr) 20 mg PO DAILY [facility] Stop: 12/10/22 08:59 Last Admin: 12/12/21 10:33 Dose: Not Given Ondansetron HCl (Ondansetron 4 Mg/2 Ml Vial) 4 mg IV-PUSH Q6H PRN PRN Reason: Nausea And Vomiting Stop: 12/12/22 18:19 Pioglitazone HCl (Pioglitazone 15 Mg Tablet) 15 mg PO DAILY [facility] Stop: 12/10/22 08:59 Last Admin: 12/12/21 [...] 15 Mg Capsule) 30 mg PO QHS [facility] Stop: 12/09/22 21:59 Last Admin: 12/12/21 22:27 [...] % (Auto) 90.4, Lymph % (Auto) 7.7, [place] % (Auto) 1.8, Eos % (Auto) 0.0, Baso % (Auto) 0.1, Neut # (Auto) 8.5 H, Lymph # (Auto) 0.7 L, [place] # (Auto) 0.2, Eos # (Auto) 0.0, [...] % (Auto) 72.7, Lymph % (Auto) 16.1, [place] % (Auto) 8.8, Eos % (Auto) 2.1, Baso % (Auto) 0.3, Neut # (Auto) 5.3, Lymph # (Auto) 1.2, [place] # (Auto) 0.6, Eos# (Auto) 0.2, Baso [...] % (Auto) 66.8, Lymph % (Auto) 21.0, [place] % (Auto) 9.2, Eos % (Auto) 2.6, Baso % (Auto) 0.4, Neut # (Auto) 4.1, Lymph # (Auto) 1.3, [place] # (Auto) 0.6, Eos # (Auto) 0.2, [...] signed by DO Walter Montgomery> 12/13/21 0852 [facility] Work Phone: [phone] 647-260108-16-2022 Progress note Author Teresa Strong [facility] December 12, 2021 8:43pm Note Date/Time December 12, 2021 2: 49pm [facility] [address] [place] [address] Urology Progress Note Signed Patient: Taye Gay MR#: [id number] : 1955 Acct:[id number] Age/Sex: 66 / F Adm Date: 2 Loc: Room: [address] [place] [address] Type: ADM INOo Attending Dr: Arleen Stephen [...] mucus, or blood in the catheter. Exam <Ingrdi Sommers DO, RES - Last Filed: 12/12/21 [...] % (Auto) 72.7, Lymph % (Auto) 16.1, [place] % (Auto) 8.8, Eos % (Auto) 2.1, Baso % (Auto) 0.3, Neut # (Auto) 5.3, Lymph # (Auto) 1.2, [place] # (Auto) 0.6, Eos# (Auto) 0.2, Baso [...] % (Auto) 66.8, Lymph % (Auto) 21.0, [place] % (Auto) 9.2, Eos % (Auto) 2.6, Baso % (Auto) 0.4, Neut # (Auto) 4.1, Lymph # (Auto) 1.3, [place] # (Auto) 0.6, Eos # (Auto) 0.2, [...] <Electronically signed by Teresa Strong MD> 12/12/212042 [facility] Work Phone: 1([phone] 182-227008-16-2022 Progress note Author Arleen Stephen [facility] December 12, 2021 1:20pm Note Date/Time December 12, 2021 1: 20pm [facility] [address] [place] [address] Hospitalist Progress Note Signed Patient: Taye Gay MR#: [id number] : 1955 Acct:[id number] Age/Sex: 66 / F Adm Date: 2 Loc: 3T Room: [address] [place] [address] Type: ADM INOo Attending Dr: Arleen Stephen [...] signed by Arleen Stephen MD> 12/12/21 1320 [facility] Work Phone: [phone] Progress note Author Walter Montgomery [facility] December 12, 2021 8:07am Note Date/Time December 12, 2021 8: 07am [facility] [address] [place] [address] General Surgery Progress Note Signed Patient: Taye Gay MR#: [id number] : 1955 Acct:[id number] Age/Sex: 66 / F Adm Date: 2 Loc: Room: [address] [place] [address] Type: ADM INOo Attending Dr: Arleen Stephen [...] 12/09/21] insulin lispro 100 unit/mL [facility] pen [facility]ulin [facility]) 1 sliding scale dose [...] 81 Mg Tablet.) 81 mg PO DAILY [facility] Stop: 12/10/22 08:59 Last Admin: 12/11/21 08:00 Dose: 81 mg Atorvastatin Calcium (Atorvastatin 10 Mg Tablet) 10 mg PO DAILY [facility] Stop: 12/10/22 08:59 Last Admin: 12/11/21 08:00 Dose: 10 mg Dextrose (Dextrose 50% In Water 25 Gm/50 Ml Syringe) 0 gm IV-PUSH PRN PRN PRN Reason: Hypoglycemia Stop: 12/09/22 11:18 Enoxaparin Sodium (Enoxaparin 40 Mg/0.4 Ml Syringe) 40 mg SUBCUT DAILY@10 [facility] Stop: 12/10/22 09:59 Last Admin: 12/11/21 [...] 50 mls @ 100 mls/hr IV Q24H [facility] Last Infusion: 12/11/21 10:15 Dose: Infused Sodium Chloride (0.9% Sodium Chloride 1,000 Ml) 1,000 mls @ 100 mls/hr IV .[id number] Stop: 12/12/22 00:00 Last Admin: 12/12/21 00:10 Dose: 100 mls/hr Insulin Aspart (Insulin Aspart 300 Units/3 Ml Insuln.Pen) 0 units SUBCUT TID.WM[facility]; Protocol Stop: 12/09/22 11:59 Last Admin: 12/11/21 21:21 Dose: 3 units Nortriptyline HCl (Nortriptyline 25 Mg Capsule) 50 mg PO BID [facility] Stop: 12/09/22 20:59 Last Admin: 12/11/21 21:20 Dose: 50 mg Omeprazole (Omeprazole 20 Mg Capsule.Dr) 20 mg PO DAILY [facility] Stop: 12/10/22 08:59 Last Admin: 12/11/21 08:00 Dose: 20 mg Ondansetron HCl (Ondansetron 4 Mg/2 Ml Vial) 4 mg IV-PUSH Q8H PRN PRN Reason: Nausea And Vomiting Stop: 12/09/22 11:18 Pioglitazone HCl (Pioglitazone 15 Mg Tablet) 15 mg PO DAILY [facility] Stop: 12/10/22 08:59 Last Admin: 12/11/21 [...] 15 Mg Capsule) 30 mg PO QHS [facility] Stop: 12/09/22 21:59 Last Admin: 12/11/21 [...] % (Auto) 66.8, Lymph % (Auto) 21.0, [place] % (Auto) 9.2, Eos % (Auto) 2.6, Baso % (Auto) 0.4, Neut # (Auto) 4.1, Lymph # (Auto) 1.3, [place] # (Auto) 0.6, Eos # (Auto) 0.2, [...] signed by DO Walter Montgomery> 12/12/21 0807 [facility] Work Phone: [phone] Consult note Author Teresa Strong [facility] December 11, 2021 9:25pm Note Date/Time December 11, 2021 8: 10pm [facility] [address] [place] [address] Urology Consult Note Signed Patient: Taye Gay MR#: [id number] : 1955 Acct:[id number] Age/Sex: 66 / F Adm Date: 2 Loc: 3T Room: [address] [place] [address] Type: ADM INOo Attending Dr: Arleen Stephen [...] 12/09/21] insulin lispro 100 unit/mL [facility] ([facility] Insulin lispro) 1 sliding [...] % (Auto) 66.8, Lymph % (Auto) 21.0, [place] % (Auto) 9.2, Eos % (Auto) 2.6, Baso % (Auto) 0.4, Neut # (Auto) 4.1, Lymph # (Auto) 1.3, [place] # (Auto) 0.6, Eos # (Auto) 0.2, [...] % (Auto) 63.3, Lymph % (Auto) 24.1, [place] % (Auto) 10.5, Eos % (Auto) 1.8, Baso % (Auto) 0.3, Neut # (Auto) 4.7, Lymph # (Auto) 1.8, [place] # (Auto) 0.8, Eos # (Auto) 0.1, [...] <Electronically signed by Teresa Strong MD> 12/11/[address] [place] [address] Ctr Work Phone: [phone] Consult note Author Walter Montgomery [facility] December 11, 2021 3:18pm Note Date/Time December 11, 2021 3: 18pm [facility] [address] [place] [address] General Surgery Consult Note Signed Patient: Taye Gay MR#: [id number] : 1955 Acct:[id number] Age/Sex: 66 / F Adm Date: 2 Loc: Room: [address] [place] [address] Type: ADM INOo Attending Dr: Arleen Stephen [...] negative unless noted below or [facility] Vacc[facility] for [facility]-19?: No Medical History [...] 12/09/21] insulin lispro 100 unit/mL subcutaneous pen ([facility] U-100 Insulin lispro) 1 sliding [...] 10 Mg Tablet) 10 mg PO DAILY [facility] Stop: 12/10/22 08:59 Last Admin: 12/11/21 08:00 Dose: 10 mg Dextrose (Dextrose 50% In Water 25 Gm/50 Ml Syringe) 0 gm IV-PUSH PRN PRN PRN Reason: Hypoglycemia Stop: 12/09/22 11:18 Enoxaparin Sodium (Enoxaparin 40 Mg/0.4 Ml Syringe) 40 mg SUBCUT DAILY@10 [facility] Stop: 12/10/22 09:59 Last Admin: 12/11/21 [...] 50 mls @ 100 mls/hr IV Q24H [facility] Last Infusion: 12/11/21 10:15 Dose: Infused Insulin Aspart (Insulin Aspart 300 Units/3 Ml Insuln.Pen) 0 units SUBCUT TID.WM.[facility]; Protocol Stop: 12/09/22 11:59 Last Admin: 12/11/21 11:33 Dose: 3 units Nortriptyline HCl (Nortriptyline 25 Mg Capsule) 50 mg PO BID [facility] Stop: 12/09/22 20:59 Last Admin: 12/11/21 08:00 Dose: 50 mg Omeprazole (Omeprazole 20 Mg Capsule.Dr) 20 mg PO DAILY [facility] Stop: 12/10/22 08:59 Last Admin: 12/11/21 08:00 Dose: 20 mg Ondansetron HCl (Ondansetron 4 Mg/2 Ml Vial) 4 mg IV-PUSH Q8H PRN PRN Reason: Nausea And Vomiting Stop: 12/09/22 11:18 Pioglitazone HCl (Pioglitazone 15 Mg Tablet) 15 mg PO DAILY [facility] Stop: 12/10/22 08:59 Last Admin: 12/11/21 [...] % (Auto) 66.8, Lymph % (Auto) 21.0, [place] % (Auto) 9.2, Eos % (Auto) 2.6, Baso % (Auto) 0.4, Neut # (Auto) 4.1, Lymph # (Auto) 1.3, [place]per # (Auto) 0.6, Eos# (Auto) 0.2, Baso [...] % (Auto) 63.3, Lymph % (Auto) 24.1, [place] % (Auto) 10.5, Eos % (Auto) 1.8, Baso % (Auto) 0.3, Neut # (Auto) 4.7, Lymph # (Auto) 1.8, [place]per # (Auto) 0.8, Eos # (Auto) 0.1, [...] % (Auto) 79.8, Lymph % (Auto) 9.6, [place]per % (Auto) 9.1, Eos % (Auto)1.1, Baso % (Auto) 0.4, Neut # (Auto) 10.3 H, Lymph # (Auto) 1.2, Gosper # (Auto) 1.2 H, Eos # (Auto) 0.1, Baso # (Auto) 0.1, Nucleated RBC % (auto) 0.0 12/09/21 08:35: Urine Color Yellow, Urine Appearance Cloudy A, Urine pH 5.5, Ur Specific [place] 1.030, Urine Protein Negative, Urine Glucose (UA) [...] <Electronically signed by DO Walter Montgomery> 12/11/211517 [facility] Work Phone: [phone] Progress note Author Arleen Stephen [facility] December 11, 2021 1:33pm Note Date/Time December 11, 2021 1: 30pm [facility] [address] [place] [address] Hospitalist Progress Note Signed Patient: Taye Gay MR#: [id number] : 1955 Acct:[id number] Age/Sex: 66 / F Adm Date: 2 Loc: Room: [address] [place] [address] Type: ADM INOo Attending Dr: Arleen Stephen [...] 12/11/21 08:00 Tramadol 50 Mg Tablet PO 02/09/23 11:18 50 mg Q6H PRN Administration Pain [...] signed by Arleen Stephen MD> 12/11/21 1333 [facility] Work Phone: [phone] 977-133508-14-2022 Progress note Author Arleen Stephen [facility] December 10, 2021 11:26am Note Date/Time December 10, 2021 11 :26am [facility] [address] [place] [address] Hospitalist Progress Note Signed Patient: Taye Gay MR#: [id number] : 1955 Acct:[id number] Age/Sex: 66 / F Adm Date: 2 Loc: Room: [address] [place] [address] Type: ADM IN Attending Dr: Arleen Stephen [...] 1,000 Ml IV 12/09/22 11:29 75 mls/hr .[id number] PARMJIT Administration Ceftriaxone Sodium 1 gm in [...] By: <Electronically signed by Arleen Stephen MD> 12/10/211125 [facility] Work Phone: [phone] History and physical note Author Arleen Stephen [facility] December 09, 2021 11:38am Note Date/Time December 09, 2021 11 :38am [facility] [address] [place] [address] Hospitalist H&P Signed Patient: Taye Gay MR#: [id number] : 1955 Acct:[id number] Age/Sex: 66 / F Adm Date: 2 Loc: ER Room: Type: [facility] ER Attending Dr: Copies to: NON STAFF MD Tray Kay, ~ HPI DATE OF EXAMINATION: 12/09/21 CHIEF COMPLAINT: [...] 02/09/21] insulin lispro 100 unit/mL subcutaneous pen ([facility] U-100 Insulin lispro) 1 sliding [...] % (Auto) 9.6 % (.) 12/09/21 08:50 Gosper % (Auto) 9.1 % (.) 12/09/21 08:50 Eos % (Auto) 1.1 % (.) 12/09/21 08:50 Baso % (Auto) 0.4 % (.) 12/09/21 08:50 Neut # (Auto) 10.3 x10E3/uL (1.8-7.7) H 12/09/21 08:50 Lymph # (Auto) 1.2 x10E3/uL (1.00-4.8) 12/09/21 08:50 Gosper # (Auto) 1.2 x10E3/uL (0.0-0.8) H 12/09/21 [...] pH 5.5 (5.0-9.0) 12/09/21 08:35 Ur Specific [place] 1.030 (1.001-1.030) 12/09/21 08:35 Urine Protein Negative [...] signed by Arleen Stephen MD> 12/09/21 1138 [facility] Work Phone: [phone] 820-174206-16-2022 Evaluation note* Encounter Date Diagnosis Assessment Notes [...] good exercise tolerance overall. She does see [facility] diabetes clinic for management of her [...] to get her started back on this. [employer] Other 03-14-2022 Evaluation note* Encounter Date Diagnosis Assessment Notes Treatment Notes Treatment Clinical Notes Jun, Type 2 diabetes mellitus with hyperglycemia (ICD-10 - E11.65) Managing type 2 diabetes material was published 1. Controlled, Type 2 diabetes with A1c 6% 2. Blood glucose levels improved. According to [employer] cgm download 06/26/2021- 2: Avg glucose 132. [...] (ICD-10 - L84) f/u with Dr. Limon [employer] Other 03-07-2022 Evaluation note* Encounter Date Diagnosis [...] apnea would also be evaluated if needed [employer] Other 01-10-2022 Evaluation note* Encounter Date Diagnosis [...] Reglan to see how she does. Apr, halfway (current) use of insulin (ICD-10 - Z79.4) Apr, Other Patient sees Dr Kenisha Castro and is up-to-date on Paps and mammograms. She did have a colonoscopy done 5 years ago and states it was normal and she is due in 5 more years. I discussed other preventative measures such as vaccines but the patient is not at all interested in any vaccines. [employer] Other 12-14-2021 Evaluation note* Encounter Date Diagnosis Assessment Notes Treatment Notes Treatment Clinical Notes Mar, Type 2 diabetes mellitus with hyperglycemia (ICD-10 - E11.65) [employer] Other 12-06-2021 Evaluation note* Encounter Date Diagnosis [...] Pain in left leg (ICD-10 - M79.605) [employer] Other 11-29-2021 Evaluation note* Encounter Date Diagnosis Assessment Notes Treatment Notes Treatment Clinical Notes Feb, Type 2 diabetes mellitus with hyperglycemia (ICD-10 - E11.65) Managing type 2 diabetes material was published 1. Controlled, Type 2 diabetes with A1c 6.9% 2. Blood glucose levels according to [employer] cgm download 03/14/2021- 021: Avg glucose 167. [...] hypertension material was published On [employer]. 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 [employer] Other Chi complaint+Reason for visit Narrative* Reason for Visit [id number] Dietary counseling and surveillance Hyperlipidemia Hypertension Insulin long-term use Peripheral neuropathy Type 2 diabetes mellitus Vitamin B 12 deficiency [facility] Work Phone: Consult note Author Walter Montgomery [facility] December 11, 2021 3:18pm Note Date/Time December 11, 2021 3: 18pm [facility] [address] [place] [address] General Surgery Consult Note Signed Patient: Taye Gay MR#: [id number] : 1955 Acct:[id number] Age/Sex: 66 / F Adm Date: 2 Loc: Room: [address] [place] [address] Type: ADM INOo Attending Dr: Arleen Stephen [...] 12/09/21] insulin lispro 100 unit/mL subcutaneous pen ([facility] U-100 Insulin lispro) 1 sliding [...] 81 Mg Tablet.) 81 mg PO DAILY [facility] Stop: 12/10/22 08:59 Last Admin: 12/11/21 08:00 Dose: 81 mg Atorvastatin Calcium (Atorvastatin 10 Mg Tablet) 10 mg PO DAILY [facility] Stop: 12/10/22 08:59 Last Admin: 12/11/21 08:00 Dose: 10 mg Dextrose (Dextrose 50% In Water 25 Gm/50 Ml Syringe) 0 gm IV-PUSH PRN PRN PRN Reason: Hypoglycemia Stop: 12/09/22 11:18 Enoxaparin Sodium (Enoxaparin 40 Mg/0.4 Ml Syringe) 40 mg SUBCUT DAILY@10 [facility] Stop: 12/10/22 09:59 Last Admin: 12/11/21 [...] 50 mls @ 100 mls/hr IV Q24H [facility] Last Infusion: 12/11/21 10:15 Dose: Infused Insulin Aspart (Insulin Aspart 300 Units/3 Ml Insuln.Pen) 0 units SUBCUT TID.WM[facility]; Protocol Stop: 12/09/22 11:59 Last Admin: 12/11/21 11:33 Dose: 3 units Nortriptyline HCl (Nortriptyline 25 Mg Capsule) 50 mg PO BID [facility] Stop: 12/09/22 20:59 Last Admin: 12/11/21 08:00 Dose: 50 mg Omeprazole (Omeprazole 20 Mg Capsule.Dr) 20 mg PO DAILY [facility] Stop: 12/10/22 08:59 Last Admin: 12/11/21 08:00 Dose: 20 mg Ondansetron HCl (Ondansetron 4 Mg/2 Ml Vial) 4 mg IV-PUSH Q8H PRN PRN Reason: Nausea And Vomiting Stop: 12/09/22 11:18 Pioglitazone HCl (Pioglitazone 15 Mg Tablet) 15 mg PO DAILY [facility] Stop: 12/10/22 08:59 Last Admin: 12/11/21 [...] 15 Mg Capsule) 30 mg PO QHS [facility] Stop: 12/09/22 21:59 Last Admin: 12/10/21 [...] % (Auto) 66.8, Lymph % (Auto) 21.0, [place] % (Auto) 9.2, Eos % (Auto) 2.6, Baso % (Auto) 0.4, Neut # (Auto) 4.1, Lymph # (Auto) 1.3, [place] # (Auto) 0.6, Eos# (Auto) 0.2, Baso [...] % (Auto) 63.3, Lymph % (Auto) 24.1, [place] % (Auto) 10.5, Eos % (Auto) 1.8, Baso % (Auto) 0.3, Neut # (Auto) 4.7, Lymph # (Auto) 1.8, [place] # (Auto) 0.8, Eos # (Auto) 0.1, [...] % (Auto) 79.8, Lymph % (Auto) 9.6, [place] % (Auto) 9.1, Eos % (Auto)1.1, Baso % (Auto) 0.4, Neut # (Auto) 10.3 H, Lymph # (Auto) 1.2, [place] # (Auto) 1.2 H, Eos # (Auto) 0.1, Baso # (Auto) 0.1, Nucleated RBC % (auto) 0.0 12/09/21 08:35: Urine Color Yellow, Urine Appearance Cloudy A, Urine pH 5.5, Ur Specific [place] 1.030, Urine Protein Negative, Urine Glucose (UA) [...] <Electronically signed by DO Walter Montgomery> 12/11/[address] [place] [address] Ctr Work Phone: Consult note Author Teresa Strong [facility] December 11, 2021 9:25pm Note Date/Time December 11, 2021 8: 10pm [facility] [address] [place] [address] Urology Consult Note Signed Patient: Taye Gay MR#: [id number] : 1955 Acct:[id number] Age/Sex: 66 / F Adm Date: 2 Loc: Room: [address] [place] [address] Type: ADM INOo Attending Dr: Arleen Stephen [...] 12/09/21] insulin lispro 100 unit/mL subcutaneous pen ([facility] Insulin lis[facility]) 1 sliding scale dose [...] % (Auto) 66.8, Lymph % (Auto) 21.0, [place] % (Auto) 9.2, Eos % (Auto) 2.6, Baso % (Auto) 0.4, Neut # (Auto) 4.1, Lymph # (Auto) 1.3, [place] # (Auto) 0.6, Eos # (Auto) 0.2, Baso # (Auto) 0.0, Nucleated RBC % (auto) 0.1 12/11/21 11:05: POC Glucose 195 08/15/22 06:58: POC Glucose 172 12/10/21 21:10: POC [...] % (Auto) 63.3, Lymph % (Auto) 24.1, [place] % (Auto) 10.5, Eos % (Auto) 1.8, Baso % (Auto) 0.3, Neut # (Auto) 4.7, Lymph # (Auto) 1.8, [place] # (Auto) 0.8, Eos # (Auto) 0.1, [...] 12/11/212009 Signed By: <Electronically signed by Teresa Srtong MD> 12/11/[address] [place] [address] Ctr Work Phone: Consult note Author Lit Clark [facility] Note Date/Time April 29, 2024 11 :07am [facility] [address] [place] [address] Neurology Consult Note Signed Patient: Taye Gay MR#: [id number] : 1955 Acct:[id number] Age/Sex: 68 / F Adm Date: 4 Loc: Room: [address] [place] [address] Type: ADM IN Attending Dr: Priscilla Lang MD Copies to: DO Sandra Garrido DO Rafik Massouh, MD~ HPI Consult Date: 04/29/24 Clerical Receptionist: Lit Clark DO Reason for consult: Slurred [...] negative unless noted below or in HPI [facility] Medical History BMI 32.0-32.9,adult Abnormal thyroid [...] Father Heart disease History of stroke [facility] Problem: Diagnosed with Stroke Cancer throat [...] (Stool Softener) 100 mg PO DAILY PRN akpgicoazopt40/14/24 [History Confirmed 04/28/24] multivitamin 1 tab PO DAILY 06/12/23 [History Confirmed 04/28/24] pen needle, diabetic [Sure-Fine [place]] 06/12/23 [History Confirmed 04/28/24] metformin 500 mg [...] Oz Bowling M.D.04/28/2024 9:46 PM Dictation Location: [place] [address] 04/28/24 19:44 IMPRESSION: No acute intracranial pathology. No evidence of focal stenosis, aneurysmal dilatation, dissection or occlusion. Impression dictated by: Oz Bowling M.D.04/28/2024 9:44 PM Dictation Location: [place] [address] Assessment/Plan (1) Atrial fibrillation: Qualifiers: Atrial fibrillation [...] may be metabolic in nature and not provider relations representative necessarily of transient ischemia or of [...] <Electronically signed by Lit Clark DO> 04/29/24 1107 [facility] Work Phone: Discharge summary Author Wilmer Vance [facility] December 13, 2021 1:58pm Note Date/Time December 13, 2021 1: 58pm [facility] [address] [place] [address] Discharge Summary Signed Patient: Taye Gay MR#: [id number] : 1955 Acct:[id number] Age/Sex: 66 / F Adm Date: 2 Loc: Room: [address] [place] [address]: Wilmer Vance MD Copies to: [...] % (Auto) 90.4, Lymph % (Auto) 7.7, [place] % (Auto) 1.8, Eos % (Auto) 0.0, Baso % (Auto) 0.1, Neut # (Auto) 8.5 H, Lymph # (Auto) 0.7 L, [place] # (Auto) 0.2,Eos # (Auto) 0.0, Baso [...] scheduled appointment Instructions: Cholecystectomy, Laparoscopic Surgery, Acetaminophen, Cefuroxime,[facility] [place] [facility] C[facility] at Home [...] <Electronically signed by Wilmer Vance MD> 12/13/21 4379 [facility] Work Phone: Discharge summary Author Elva Florian [facility] September 15, 2023 1:17am Note Date/Time September 14, 2023 2:20p m [facility] [address] [place] [address] Discharge Summary Signed Patient: Taye Gay MR#: [id number] : 1955 Acct:[id number] Age/Sex: 67 / F Adm Date: 4 Loc: Room: [address] [place] [address]: Elva Florian MD Copies to: [...] .Route (DME) pen needle, diabetic [Sure-Fine [place]] .Route (DME) FreeStyle Brent 14 Day Sensor [...] signed by Elva Florian MD> 09/15/23 0117 [facility] Work Phone: Discharge summary Author Priscilla Lang [facility] Note Date/Time April 30, 2024 10 :28am [facility] [address] [place] [address] Discharge Summary Signed Patient: Taye Gay MR#: [id number] : 1955 Acct:[id number] Age/Sex: 68 / F Adm Date: 4 Loc: Room: [address] [place] [address]: Priscilla Lang MD Copies to: [...] taking multiple medications that could potentially cause [employer]ESSION[employer] side effect and toxic encephalopathy. Diagnosis is [...] polypharmacy regimen to reduce her risk of [employer] side effects or drug?drug interaction. At this [...] ask her primary care doctor to obtain [facility] record entirely to address abnormalities seen [...] ask your primary care provider to obtain [facility] records entirely to follow up on [...] or having drug?drug interaction. Discharging you from [facility] does not mean that your medical [...] constipation) (DME) pen needle, diabetic [Sure-Fine [place]] .Route lidocaine 5 % ointment 1 applic [...] % (Auto) 63.5, Lymph % (Auto) 24.9, [place] % (Auto) 8.3, Eos % (Auto) 2.9, Baso % (Auto) 0.4, Nucleat RBC Rel Count 0.0, Neut # (Auto) 4.6, Lymph # (Auto) 1.8, [place] # (Auto) 0.6, Eos # (Auto) 0.2, [...] signed by Priscilla Lang MD> 04/30/24 1028 [facility] Work Phone: evaluation noteNo [facility] Other Evaluation note* Diagnosis Onset Date Resolution Status Cholelithiasis acute Emphysematous cystitis acute Pyelonephritis acute Right lateral abdominal pain acute [facility] Work Phone: evaluation noteNo assessment information available [facility] Work Phone: evaluation note* Diagnosis Onset Date Resolution Status [id number] acute Dietary counseling and surveillance acute Hyperlipidemia acute Hypertension acute Insulin long-term use acute Peripheral neuropathy acute Type 2 diabetes mellitus acu te Vitamin B 12 deficiency [facility] Work Phone: evaluation note* Diagnosis Onset Date Resolution Status BMI 28.0-28.9,adult acute [id number] acute Dietary counseling and surveillance acute Hyperlipidemia acute Hypertension acute Insulin long-term use acute Peripheral neuropathy acute Type 2 diabetes mellitus acu te Vitamin B 12 deficiency acut e [facility] Work Phone: evaluation note* Diagnosis Onset Date Resolution Status BMI 28.0-28.9,adult acute [id number] acute Dietary counseling and surveillance acute Hyperlipidemia acute Hypertension acute Insulin long-term use acute Peripheral neuropathy acute Type 2 diabetes mellitus acu te Vitamin B 12 deficiency acut e Dizziness acute Hypertension acute Primary insomnia acute Type 2 diabetes mellitus acu te [facility] Work Phone: Evaluation note* Diagnosis Onset Date Resolution Status BMI 28.0-28.9,adult acute [id number] acute Dietary counseling and surveillance acute Hyperlipidemia acute Hypertension acute Insulin long-term use acute Peripheral neuropathy acute Type 2 diabetes mellitus acu te Vitamin B 12 deficiency acut e Dizziness acute Hypertension acute Primary insomnia acute Type 2 diabetes mellitus acu te PAD (peripheral artery disease) acute [facility] Work Phone: Evaluation note* Diagnosis Onset Date Resolution Status PAD (peripheral artery disease) acute BMI 28.0-28.9,adult acute [id number] acute Dietary counseling and surveillance acute Hyperlipidemia acute Hypertension acute Peripheral neuropathy acute Tachycardia acute Type 2 diabetes mellitus acu te Vitamin B 12 deficiency acut e Atrial flutter with rapid ventricular response acute Chest pain acute Hyperlipidemia acute Hypertension acute New onset atrial flutter acu te Type 2 diabetes mellitus acu te [facility] Work Phone: Evaluation note* Diagnosis Onset Date Resolution Status PAD (peripheral artery disease) acute BMI 28.0-28.9,adult acute [id number] acute Dietary counseling and surveillance acute Hyperlipidemia [...] acu te Mobility impaired noneactive [facility] Work Phone: Evaluation note* Diagnosis Typical atrial flutter (Multi) Nonischemic cardiomyopathy (Multi) Other primary cardiomyopathies Hypertension, unspecified type Hypercholesteremia Pure hypercholesterolemia Smoker Tobacco use disorder Type 2 diabetes mellitus with other specified complication, unspecified whether chcf insulin use (Multi) BMI 28.0-28.9,adult documented in this encounter [facility] Work Phone: Evaluation note* Diagnosis Onset Date Resolution Status BMI 28.0-28.9,adult acute [id number] acute Dietary counseling and surveillance acute Hyperlipidemia [...] diabetes mellitus acu te Mobility impaired noneactive [facility] Work Phone: Evaluation note* Diagnosis Onset Date Resolution Status BMI 28.0-28.9,adult acute [id number] acute Dietary counseling and surveillance acute Hyperlipidemia [...] 2 diabetes mellitus with hyperglycemia acute Weakness [facility] Work Phone: Evaluation note* Diagnosis Onset Date Resolution Status BMI 28.0-28.9,adult acute [id number] acute Dietary counseling and surveillance acute Hyperlipidemia [...] Vitamin B 12 deficiency acut e Weakness [facility] Work Phone: Evaluation note* Diagnosis Onset Date Resolution Status BMI 28.0-28.9,adult acute [id number] acute Dietary counseling and surveillance acute Hyperlipidemia [...] acut e Weakness acute BMI 28.0-28.9,adult acute [id number] acute Dietary counseling and surveillance acute Hyperlipidemia acute Hypertension acute Peripheral neuropathy acute Type 2 diabetes mellitus acu te Vitamin B 12 deficiency acut e [facility] Work Phone: Evaluation note* Diagnosis Onset Date Resolution Status BMI 28.0-28.9,adult acute [id number] acute Dietary counseling and surveillance acute Hyperlipidemia [...] thyroid blood test acute BMI 28.0-28.9,adult acute [id number] acute Dietary counseling and surveillance acute Hyperlipidemia acute Hypertension acute Peripheral neuropathy acute Type 2 diabetes mellitus acu te Vitamin B 12 deficiency acut e [facility] Work Phone: Evaluation note* Diagnosis Onset Date Resolution Status BMI 28.0-28.9,adult acute [id number] acute Dietary counseling and surveillance acute Hyperlipidemia [...] thyroid blood test acute BMI 28.0-28.9,adult acute [id number] acute Dietary counseling and surveillance acute Hyperlipidemia acute Hypertension acute Peripheral neuropathy acute Type 2 diabetes mellitus acu te Vitamin B 12 deficiency acut e Hospital discharge follow-up acute Hypomagnesemia acute [facility] Work Phone: Evaluation note* Diagnosis Onset Date Resolution Status Ambulatory dysfunction acute Hypomagnesemia acute Hypothyroid acute Type 2 diabetes mellitus with hyperglycemia acute Vitamin B 12 deficiency acut e Weakness acute Abnormal thyroid blood test acute BMI 28.0-28.9,adult acute [id number] acute Dietary counseling and surveillance acute Hyperlipidemia acute Hypertension acute Peripheral neuropathy acute Type 2 diabetes mellitus acu te Vitamin B 12 deficiency acut e Hospital discharge follow-up acute Hypomagnesemia acute [facility] Work Phone: Evaluation note* Diagnosis Ulcer of right foot, limited to breakdown of skin (CMS/HCC)- Primary Blister of right foot, subsequent encounter 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) documented in this encounter [facility]* Diagnosis Onset Date Resolution Status Ambulatory dysfunction acute Hypomagnesemia acute Hypothyroid acute Type 2 diabetes mellitus with hyperglycemia acute Vitamin B 12 deficiency acut e Weakness acute Abnormal thyroid blood test acute BMI 28.0-28.9,adult acute [id number] acute Dietary counseling and surveillance acute Hyperlipidemia acute Hypertension acute Peripheral neuropathy acute Type 2 diabetes mellitus acu te Vitamin B 12 deficiency acut e Hospital discharge follow-up acute Hypomagnesemia acute Weakness acute [facility] Work Phone: Evaluation note* Diagnosis [...] layer exposed (CMS/HCC) documented in this encounter [facility] note* Diagnosis Leg pain, bilateral- Primary [...] syndrome B12 deficiency documented in this encounter [facility] note* Diagnosis Hypertension, unspecified type Typical atrial flutter (Multi) documented in this encounter [facility] Work Phone: Evaluation note* Diagnosis Lumbosacral radiculopathy at S1- Primary Neurogenic pain Cervical paraspinal muscle spasm Spasm of muscle Lumbar paraspinal muscle spasm Other symptoms referable to back Carpal tunnel syndrome, bilateral Carpal tunnel syndrome B12 deficiency documented in this encounter [facility]* Diagnosis Nonischemic cardiomyopathy (Multi)- Primary Other primary cardiomyopathies Typical atrial flutter (Multi) Hypercholesteremia Pure hypercholesterolemia Primary hypertension Unspecified essential hypertension Current smoker BMI 28.0-28.9,adult High risk medication use documented in this encounter [facility] Work Phone: Evaluation note* Diagnosis Leg pain, [...] of foot (CMS/HCC) documented in this encounter [facility]* Diagnosis High risk medication use- Primary Typical atrial flutter (Multi) Nonischemic cardiomyopathy (Multi) Other primary cardiomyopathies Hypercholesteremia Pure hypercholesterolemia BMI 28.0-28.9,adult BMI 30.0-30.9,adult Current smoker documented in this encounter [facility] Work Phone: Evaluation note* Diagnosis Carpal tunnel syndrome, bilateral- Primary Carpal tunnel syndrome documented in this encounter [facility]* Diagnosis Ulcer of right foot, limited to breakdown of skin (CMS/HCC)- Primary Cellulitis of right foot documented in this encounter [facility]* Diagnosis Ulcer of right foot, limited to breakdown of skin (CMS/HCC)- Primary Blister of right foot, initial encounter 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) documented in this encounter [facility]* Diagnosis Typical atrial flutter (Multi)- Primary Nonischemic cardiomyopathy (Multi) Other primary cardiomyopathies Hypercholesteremia Pure hypercholesterolemia Hypertension, unspecified type BMI 32.0-32.9,adult Current smoker documented in this encounter [facility] Work Phone: Evaluation note* Diagnosis Leg pain, [...] limb Bilateral leg weakness Muscle weakness (generalized) Numbness- Primary Disturbance of skin sensation Paresthesias Disturbance of skin sensation Pain in both lower extremities Lumbosacral radiculopathy at L5 documented in this encounter [facility]* Diagnosis Typical atrial flutter (Multi)- Primary Nonischemic cardiomyopathy (Multi) Other primary cardiomyopathies Hypertension, unspecified type Hypercholesteremia Pure hypercholesterolemia Obesity (BMI 30-39.9) Current smoker documented in this encounter [facility] Work Phone: History and physical note Author Arleen Stephen [facility] December 09, 2021 11:38am Note Date/Time December 09, 2021 11 :38am [facility] [address] [place] [address] Hospitalist H&P Signed Patient: Taye Gya MR#: [id number] : 1955 Acct:[id number] Age/Sex: 66 / F Adm Date: 2 Loc: ER Room: Type: [facility] ER Attending Dr: Copies to: NON STAFF MD Tray Kay, ~ HPI DATE OF EXAMINATION: 12/09/21 CHIEF COMPLAINT: [...] 02/09/21] insulin lispro 100 unit/mL [facility]ulin lispro) 1 sliding [...] % (Auto) 9.6 % (.) 12/09/21 08:50 Gosper % (Auto) 9.1 % (.) 12/09/21 08:50 Eos % (Auto) 1.1 % (.) 12/09/21 08:50 Baso % (Auto) 0.4 % (.) 12/09/21 08:50 Neut # (Auto) 10.3 x10E3/uL (1.8-7.7) H 12/09/21 08:50 Lymph # (Auto) 1.2 x10E3/uL (1.00-4.8) 12/09/21 08:50 Gosper # (Auto) 1.2 x10E3/uL (0.0-0.8) H 12/09/21 [...] pH 5.5 (5.0-9.0) 12/09/21 08:35 Ur Specific [place] 1.030 (1.001-1.030) 12/09/21 08:35 Urine Protein Negative [...] signed by Arleen Stephen MD> 12/09/21 1138 [facility] Work Phone: History and physical note Author Jluis Campos [facility] November 10, 2023 6:20am Note Date/Time November 10, 2023 6:11 am [facility] [address] [place] [address] Hospitalist H&P Signed Patient: Taye Gay MR#: [id number] : 1955 Acct:[id number] Age/Sex: 67 / F Adm Date: 4 Loc: 4 Room: [id number] Type: ADM IN Attending Dr: Jluis Campos [...] negative unless noted below or in HPI [facility] Medical History History of esophageal stricture [...] History Father Heart disease [facility]: [facility] with [facility] Cancer [...] mg (2 mg/1.5 mL) subcutaneous pen injector (LIN TV) 1 mg subcut QWEEK 02/09/21 [History Confirmed [...] Confirmed 11/09/23] pen needle, diabetic [Sure-Fine Pen [place]] 06/12/23 [History Confirmed 11/09/23] omeprazole 20 mg [...] weaknesses were noted, patient unable to ambulate. Mrse-mq-slfm test was normal. No tremors or ataxia with hbvciu-af-hsxl movements. Neuro: AOx3, CN II-VII intact. Moves [...] % (Auto) 26.0 % (.) 11/10/23 03:41 Gosper % (Auto) 8.2 % (.) 11/10/23 03:41 Eos % (Auto) 3.7 % (.) 11/10/23 03:41 Baso % (Auto) 0.9 % (.) 11/10/23 03:41 Nucleat RBC Rel Count 0.1 /100 WBC (0-0.5) 11/10/23 03:41 Neut # (Auto) 5.2 x10E3/uL (1.8-7.7) 11/10/23 03:41 Lymph # (Auto) 2.2 x10E3/uL (1.00-4.8) 11/10/23 03:41 [place] # (Auto) 0.7 x10E3/uL (0.0-0.8) 11/10/23 03:41 [...] pH 6.0 (5.0-9.0) 11/10/23 05:02 Ur Specific [place] 1.007 (1.001-1.030) 11/10/23 05:02 Urine Protein Negative [...] signed by Jluis Campos DO> 11/10/23 0620 [facility] Work Phone: History and physical note Author Jori Hearn [facility] Note Date/Time April 29, 2024 6: 39am [facility] [address] [place] [address] Hospitalist H&P Signed Patient: Taye Gay MR#: [id number] : 1955 Acct:[id number] Age/Sex: 68 / F Adm Date: 4 Loc: 3T Room: [address] [place] [address] Type: ADM IN Attending Dr: Jori Hearn DO Copies to: Sandra Keita, DO Jori Hearn, ~ HPI DATE [...] of dementia, possible Alzheimer's dementia -continue home [id number] mg twice daily and donepezil 20 mg daily 12. Atrial fibrillation - continue Eliquis 5 mg twice daily for anticoagulationand carvedilol 12.5 mg twice daily. EKG in ER shows NSR 13. Hypoxia - no respiratory distress or cardiopulmonary complaints to accompany this. Will monitor telemetry and address as needed [facility] Medical History BMI 32.0-32.9,adult Abnormal thyroid [...] History Father Heart disease History of stroke [facility] Problem: Diagnosed with Stroke Cancer [...] (Stool Softener) 100 mg PO DAILY PRN ufopppcombnj94/14/24 [History Confirmed 04/28/24] multivitamin 1 tab PO DAILY 06/12/23 [History Confirmed 04/28/24] pen needle, diabetic [Sure-Fine Pen [place]] 06/12/23 [History Confirmed 04/28/24] metformin 500 mg [...] % (Auto) 24.6 % (.) 04/28/24 19:54 Gosper % (Auto) 7.6 % (.) 04/28/24 19:54 Eos % (Auto) 2.7 % (.) 04/28/24 19:54 Baso % (Auto) 1.1 % (.) 04/28/24 19:54 Nucleat RBC Rel Count 0.2 /100 WBC (0-0.5) 04/28/24 19:54 Neut # (Auto) 6.5 x10E3/uL (1.8-7.7) 04/28/24 19:54 Lymph # (Auto) 2.5 x10E3/uL (1.00-4.8) 04/28/24 19:54 [place] # (Auto) 0.8 x10E3/uL (0.0-0.8) 04/28/24 19:54 [...] pH 5.5 (5.0-9.0) 04/28/24 22:02 Ur Specific [place] 1.038 (1.001-1.030) H 04/28/24 22:02 Urine Protein [...] signed by Jori Hearn DO> 04/29/24 0639 [facility] Work Phone: History and physical note Author Manjit Gleason [facility] Note Date/Time September 10, 2024 12:41 pm [facility] [address] [place] [address] Gastroenterology H&P Signed Patient: Taye Gay MR#: [id number] : 1955 Acct:[id number] Age/Sex: 68 / F Adm Date: 5 Loc: Room: Type: [facility] Attending Dr: Manjit Gleason MD Copies to: [...] signed by Manjit Gleason MD> 09/10/24 1241 [facility] Work Phone: History general Narrative - Reported* Type Description Date Medical History HTN Medical History Diabetes Medical History Obesity Medical History HLP Medical History tonsillectomy Medical History hysterectomy Medical History Cataracts removed Bilateral Medical History Upper eye lift Surgical History tonsillectomy Surgical History hysterectomy Surgical History cataracts, bilaterally Surgical History eye lid surgery Surgical History removed cervix 12/2018 [employer] Other Hisnngk general Narrative - Reported* Type Description Date Medical History HTN Medical History Diabetes Medical History Obesity Medical History HLP Medical History tonsillectomy Medical History hysterectomy Medical History Cataracts removed Bilateral Medical History Upper eye lift Surgical History tonsillectomy Surgical History hysterectomy Surgical History cataracts, bilaterally Surgical History eye lid surgery Surgical History removed cervix 12/2018 Hospitalization History See Above [employer] Other Hisouls general Narrative - Reported* Type Description Date Medical History HTN Medical History Diabetes Medical History Obesity Medical History HLP Medical History tonsillectomy Medical History hysterectomy Medical History Cataracts removed Bilateral Medical History Upper eye lift Surgical History tonsillectomy Surgical History partial hysterectomy Surgical History cataracts, bilaterally Surgical History eye lid surgery--bilateral Surgical History removed cervix 12/2018 Hospitalization History See Above [employer] Other Hiszrku general Narrative - Reported* Type Description Date [...] History UTI and gallbladder jami yusef 11/2021 [employer] Other Hisxdey general Narrative - Reported* Type Description Date [...] History UTI and gallbladder jami yusef 11/2021 [employer] [facility]: [facility] Work Phone[facility]: [facility] Discharge instructionsAmbulatory Orders* Initiate Home Health Time [...] - Care to be managed by PCP [facility] Work Phone: Hospital Discharge instructions Additional Instructions I may not have addressed or treated all of your medical illnesses or the abnormal blood work or imaging studies during this hospitalization. Please ask your primary care provider to obtain [facility] records entirely to follow up on [...] having drug drug interaction. Discharging you from [facility] does not mean that your medical care ends here and now. You may still need additional monitoring, work up, investigation, and treatment plan to be handled from this point on by out patient providers including your primary care provider and specialists. For any medication question, please contact your retail pharmacist or your primary care provider. Thank you.[facility] Work Phone: Hospital Discharge instructionsAmbulatory Orders* Referral to Pain Management Location: None Selected [facility] Work Phone: Progress note Author Arleen Stephen [facility] December 10, 2021 11:26am Note Date/Time December 10, 2021 11 :26am [facility] [facility] [address] [place] [address] Hospitalist Progress Note Signed Patient: Taye Gay MR#: [id number] : 1955 Acct:[id number] Age/Sex: 66 / F Adm Date: 2 Loc: 3T Room: [address] [place] [address] Type: ADM IN Attending Dr: Arleen Stephen [...] 1,000 Ml IV 12/09/22 11:29 75 mls/hr .[id number] PARMJIT Administration Ceftriaxone Sodium 1 gm in [...] signed by Arleen Stephen MD> 12/10/21 1126 [facility] Work Phone: Progress note Author Arleen Stephen [facility] December 11, 2021 1:33pm Note Date/Time December 11, 2021 1: 30pm [facility] [address] [place] [address] Hospitalist Progress Note Signed Patient: Taye Gay MR#: [id number] : 1955 Acct:[id number] Age/Sex: 66 / F Adm Date: 2 Loc: Room: [address] [place] [address] Type: ADM INOo Attending Dr: Arleen Stephen [...] signed by Arleen Stephen MD> 12/11/21 1333 [facility] Work Phone: Progress note Author Walter Montgomery [facility] December 12, 2021 8:07am Note Date/Time December 12, 2021 8: 07am [facility] [address] [place] [address] General Surgery Progress Note Signed Patient: Taye Gay MR#: [id number] : 1955 Acct:[id number] Age/Sex: 66 / F Adm Date: 2 Loc: Room: [address] [place] [address] Type: ADM INOo Attending Dr: Arleen Stephen [...] 12/09/21] insulin lispro 100 unit/mL subcutaneous pen ([facility] U-100 Insulin lispro) 1 sliding [...] 81 Mg Tablet.Dr) 81 mg PO DAILY [facility] Stop: 12/10/22 08:59 Last Admin: 12/11/21 08:00 Dose: 81 mg Atorvastatin Calcium (Atorvastatin 10 Mg Tablet) 10 mg PO DAILY PARMJIT Stop: 12/10/22 08:59 Last Admin: 12/11/21 08:00 Dose: 10 mg Dextrose (Dextrose 50% In Water 25 Gm/50 Ml Syringe) 0 gm IV-PUSH PRN PRN PRN Reason: Hypoglycemia Stop: 12/09/22 11:18 Enoxaparin Sodium (Enoxaparin 40 Mg/0.4 Ml Syringe) 40 mg SUBCUT DAILY@10 [facility] Stop: 12/10/22 09:59 Last Admin: 12/11/21 [...] 50 mls @ 100 mls/hr IV Q24H [facility] Last Infusion: 12/11/21 10:15 Dose: Infused Sodium Chloride (0.9% Sodium Chloride 1,000 Ml) 1,000 mls @ 100 mls/hr IV .[id number] Stop: 12/12/22 00:00 Last Admin: 12/12/21 00:10 Dose: 100 mls/hr Insulin Aspart (Insulin Aspart 300 Units/3 Ml Insuln.Pen) 0 units SUBCUT TID.WM[facility]; Protocol Stop: 12/09/22 11:59 Last Admin: 12/11/21 21:21 Dose: 3 units Nortriptyline HCl (Nortriptyline 25 Mg Capsule) 50 mg PO BID [facility] Stop: 12/09/22 20:59 Last Admin: 12/11/21 [...] 15 Mg Capsule) 30 mg PO QHS [facility] Stop: 12/09/22 21:59 Last Admin: 12/11/21 [...] Output 24 hour I&O: Intake & Output 08/15/22 08/16/22 08/16/22 23:59 07:59 15:59 Intake Total 600 / [...] % (Auto) 66.8, Lymph % (Auto) 21.0, Gosper % (Auto) 9.2, Eos % (Auto) 2.6, Baso % (Auto) 0.4, Neut # (Auto) 4.1, Lymph # (Auto) 1.3, Gosper # (Auto) 0.6, Eos # (Auto) 0.2, [...] signed by DO Walter Montgomery> 12/12/21 0807 [facility] Work Phone: Progress note Author Arlene Stephen [facility] December 12, 2021 1:20pm Note Date/Time December 12, 2021 1: 20pm [facility] [address] [place] [address] Hospitalist Progress Note Signed Patient: Taye Gay MR#: [id number] : 1955 Acct:[id number] Age/Sex: 66 / F Adm Date: 2 Loc: Room: [address] [place] [address] Type: ADM INOo Attending Dr: Arleen Stephen [...] Insuln.Pen SUBCUT 12/09/22 11:59 Not Given TID.WM.[facility] Protocol Lidocaine HCl 0.1 ml 12/12/21 [...] Tablet PO 12/10/22 08:59 Not Given DAILY [facility] Potassium Chloride 40 meq 12/09/21 11:19 Potassium [...] signed by Arleen Stephen MD> 12/12/21 1320 [facility] Work Phone: Progress note Author Teresa Strong [facility] December 12, 2021 8:43pm Note Date/Time December 12, 2021 2: 49pm [facility] [address] [place] [address] Urology Progress Note Signed Patient: Taye Gay MR#: [id number] : 1955 Acct:[id number] Age/Sex: 66 / F Adm Date: 2 Loc: Room: [address] [place] [address] Type: ADM INOo Attending Dr: Arleen Stephen [...] % (Auto) 72.7, Lymph % (Auto) 16.1, Gosper % (Auto) 8.8, Eos % (Auto) 2.1, Baso % (Auto) 0.3, Neut # (Auto) 5.3, Lymph # (Auto) 1.2, Gosper # (Auto) 0.6, Eos# (Auto) 0.2, Baso [...] % (Auto) 66.8, Lymph % (Auto) 21.0, Gosper % (Auto) 9.2, Eos % (Auto) 2.6, Baso % (Auto) 0.4, Neut # (Auto) 4.1, Lymph # (Auto) 1.3, Gosper # (Auto) 0.6, Eos # (Auto) 0.2, [...] <Electronically signed by Teresa Strong MD> 12/12/212042 [facility] Work Phone: Progress note Author Walter Montgomery [facility] December 13, 2021 8:52am Note Date/Time December 13, 2021 8: 52am [facility] [address] [place] [address] General Surgery Progress Note Signed Patient: Taye Gay MR#: [id number] : 1955 Acct:[id number] Age/Sex: 66 / F Adm Date: 2 Loc: Room: [address] [place] [address] Type: ADM INOo Attending Dr: Wilmer Vance [...] 12/09/21] insulin lispro 100 unit/mL subcutaneous pen ([facility] U-100 Insulin lispro) 1 sliding [...] 81 Mg Tablet.Dr) 81 mg PO DAILY [facility] Stop: 12/10/22 08:59 Last Admin: 12/12/21 10:33 Dose: Not Given Atorvastatin Calcium (Atorvastatin 10 Mg Tablet) 10 mg PO DAILY [facility] Stop: 12/10/22 08:59 Last Admin: 12/12/21 10:33 Dose: Not Given Cyanocobalamin (Cyanocobalamin 1,000 Mcg Tablet) 1,000 mcg PO DAILY [facility] Stop: 12/13/22 08:59 Dextrose (Dextrose 50% In Water 25 Gm/50 Ml Syringe) 0 gm IV-PUSH PRN PRN PRN Reason: Hypoglycemia Stop: 12/09/22 11:18 Docusate Sodium (Docusate 100 Mg Capsule) 100 mg PO TID [facility] Stop: 12/12/22 21:59 Last Admin: 12/12/21 22:26 Dose: 100 mg Enoxaparin Sodium (Enoxaparin 40 Mg/0.4 Ml Syringe) 40 mg SUBCUT DAILY@10 [facility] Stop: 12/10/22 09:59 Last Admin: 12/12/21 [...] 50 mls @ 100 mls/hr IV Q24H [facility] Last Admin: 12/12/21 11:57 Dose: 100 mls/hr Sodium Chloride (0.9% Sodium Chloride 1,000 Ml) 1,000 mls @ 100 mls/hr IV .[id number] Stop: 12/12/22 00:00 Last Infusion: 12/13/21 03:35 Dose: Infused Lactated Ringer's (Lactated Ringers) 1,000 mls @ 20 mls/hr IV .Q24H ONE Stop: 12/13/21 11:13 Last Infusion: 12/13/21 03:31 Dose: Infused Insulin Aspart (Insulin Aspart 300 Units/3 Ml Insuln.Pen) 0 units SUBCUT TID.WM[facility]; Protocol Stop: 12/09/22 11:59 Last Admin: 12/13/21 08:07 Dose: 4 units Nortriptyline HCl (Nortriptyline 25 Mg Capsule) 50 mg PO BID [facility] Stop: 12/09/22 20:59 Last Admin: 12/12/21 22:27 Dose: 50 mg Omeprazole (Omeprazole 20 Mg Capsule.Dr) 20 mg PO DAILY [facility] Stop: 12/10/22 08:59 Last Admin: 12/12/21 10:33 Dose: Not Given Ondansetron HCl (Ondansetron 4 Mg/2 Ml Vial) 4 mg IV-PUSH Q6H PRN PRN Reason: Nausea And Vomiting Stop: 12/12/22 18:19 Pioglitazone HCl (Pioglitazone 15 Mg Tablet) 15 mg PO DAILY [facility] Stop: 12/10/22 08:59 Last Admin: 12/12/21 [...] 15 Mg Capsule) 30 mg PO QHS [facility] Stop: 12/09/22 21:59 Last Admin: 12/12/21 22:27 [...] % (Auto) 90.4, Lymph % (Auto) 7.7, Gosper % (Auto) 1.8, Eos % (Auto) 0.0, Baso % (Auto) 0.1, Neut # (Auto) 8.5 H, Lymph # (Auto) 0.7 L, Gosper # (Auto) 0.2, Eos # (Auto) 0.0, [...] % (Auto) 72.7, Lymph % (Auto) 16.1, Gosper % (Auto) 8.8, Eos % (Auto) 2.1, Baso % (Auto) 0.3, Neut # (Auto) 5.3, Lymph # (Auto) 1.2, Gosper # (Auto) 0.6, Eos# (Auto) 0.2, Baso [...] % (Auto) 66.8, Lymph % (Auto) 21.0, Gosper % (Auto) 9.2, Eos % (Auto) 2.6, Baso % (Auto) 0.4, Neut # (Auto) 4.1, Lymph # (Auto) 1.3, Gosper # (Auto) 0.6, Eos # (Auto) 0.2, [...] signed by DO Walter Montgomery> 12/13/21 0852 [facility] Work Phone: Progress note Author Priscilla Lang [facility] Note Date/Time April 29, 2024 11 :02am [facility] [address] [place] [address] Hospitalist Progress Note Signed Patient: Taye Gay MR#: [id number] : 1955 Acct:[id number] Age/Sex: 68 / F Adm Date: 4 Loc: 3T Room: [address] [place] [address] Type: ADM IN Attending Dr: Priscilla Lang [...] presence of WBCs, RBCs and rare yeast. Evyjaqueline provided 3 to 24 mg of aspirin [...] of dementia, possible Alzheimer's dementia -continue home [id number] mg twice daily and donepezil 20 mg [...] 09:00 04/29/24 08:02 Pantoprazole 40 Mg Tablet.Dr PO 04/29/25 08:59 40 mg DAILY PARMJIT [...] providers. Documented By: Priscilla Lang MD 04/29/24 1057 Signed By: <Electronically signed by Priscilla Lang MD> 04/29/24 1105 [facility] Work Phone: Progress note Author Lit Clark [facility] Note Date/Time April 30, 2024 12 :30pm [facility] [address] [place] [address] Neurology Progress Note Signed with Addenda Patient: Taye Gay MR#: [id number] : 1955 Acct:[id number] Age/Sex: 68 / F Adm Date: 4 Loc: 3T Room: [address] [place] [address] Type: ADM IN Attending Dr: Priscilla Lang MD Copies to: ~ ADDENDUM1 Patient has refused to remove her nail maori for MRI. Unable to confirm whether or [...] may be metabolic in nature and not provider relations representative necessarily of transient ischemia or of [...] signed by Lit Clark DO> 04/30/24 0708 [facility] Work Phone: Rekxej for referral (narrative)No reason for referral information availableBluffton Hospital Ctr Work Phone: Reason for visit Narrative* Other Medical (Routine) - Closed Specialty Diagnoses / Procedures Referred By Tahmina thurston Referred To Contact Neurology Diagnoses Numbness Leg pain, left Leg pain, right Bilateral leg weakness Procedures EMG AND NERVE CONDUCTION STUDY Oz Kincaid MD [address] [place] [address] Phone: tel: fax: Oz Kincaid MD [address] [place] [id number] Phone: tel: fax: Referral ID Status Reason Start Date Expiration Date V isits Requested Visits Authorized [id number] Closed Perform Procedure 10/06/2024 04/04/2025 1 1 [facility] N[facility]* Other Medical (Routine) - Closed Specialty Diagnoses / Procedures Referred By Contac bertrand Referred To Contact Neurology Diagnoses Arm weakness Numbness Arm pain, right Arm pain, left Procedures EMG AND NERVE CONDUCTION STUDY Oz Kincaid MD [address] [place] [address] Phone: tel: fax: Oz Kincaid MD [address] [place] [address] Phone: tel: fax: Referral ID Status Reason Start Date Expiration Date V isits Requested Visits Authorized [id number] Closed Perform Procedure 11/16/2024 05/15/2025 1 1 [facility] Summary Purpose Family History Relationship Condition Age [...] December 4:05pm Procedure Findings Note HNO ID: [id number] Author: Phi Joaquin Service: Gynecology Oncology Author Type: Physician Type: Brief Op Note Filed: 01/17/2019 7:15 PM Note Text: BRIEF OPERATIVE / PROCEDURE NOTE LOG ID: [id number] SURGERY/PROCEDURE DATE: 01/01/2019 INCISION/PROCEDURE START TIME: 8:11 AM INCISION CLOSE/PROCEDURE END TIME: 8:34 AM SURGEON(S)/PROCEDURALIST(S) AND V BLOCK SAW OPERATOR(S): Surgeon(s) and Role: * Theo Joaquin - [...] 01, 2019 TIME: 8:39 AM PAGER/CONTACT #: [id number] Chief Complaint and Reason for Visit Chief Complaint right side pain Low R abd pain Reason for Visit Cholelithiasis Emphysematous cystitis Pyelonephritis Right lateral abdominal pain Chief Complaint g02.97 f17.210 Chief Complaint g02.97 f17.210 Z12.39 Chief Complaint E11.4 Z78.0 Chief Complaint 3 month follow up Reason for Visit BMI 28.0-28.9,adult [id number] Dietary counseling and surveillance Hyperlipidemia Hypertension Insulin long-term use Peripheral neuropathy Type 2 diabetes mellitus Vitamin B 12 deficiency Chief Complaint 3 month follow up PVD FOLLOW UP Reason for Visit BMI 28.0-28.9,adult [id number] Dietary counseling and surveillance Hyperlipidemia Hypertension Insulin long-term use Peripheral neuropathy Type 2 diabetes mellitus Vitamin B 12 deficiency Dizziness Hypertension Primary insomnia Type 2 diabetes mellitus Chief Complaint 3 month follow up PVD FOLLOW UP g02.97 f17.210 Reason for Visit BMI 28.0-28.9,adult [id number] Dietary counseling and surveillance Hyperlipidemia Hypertension Insulin long-term use Peripheral neuropathy Type 2 diabetes mellitus Vitamin B 12 deficiency Dizziness Hypertension Primary insomnia Type 2 diabetes mellitus PAD (peripheral artery disease) Chief Complaint 3 month follow up PVD FOLLOW UP g02.97 f17.210 E11.9 E78.5 E53.8 Reason for Visit BMI 28.0-28.9,adult [id number] Dietary counseling and surveillance Hyperlipidemia Hypertension Insulin long-term use Peripheral neuropathy Type 2 diabetes mellitus Vitamin B 12 deficiency Dizziness Hypertension Primary insomnia Type 2 diabetes mellitus PAD (peripheral artery disease) Chief Complaint PVD FOLLOW UP g02.97 f17.210 E11.9 E78.5 E53.8 Amb Documentation brent on phone chest pains chest pains Reason for Visit PAD (peripheral evert ry disease) BMI 28.0-28.9,adult [id number] Dietary counseling and surveillance Hyperlipidemia Hypertension Peripheral [...] PAD (peripheral evert ry disease) BMI 28.0-28.9,adult [id number] Dietary counseling and surveillance Hyperlipidemia Hypertension Peripheral [...] i70.91 d51.3 Reason for Visit BMI 28.0-28.9,adult [id number] Dietary counseling and surveillance Hyperlipidemia Hypertension Peripheral [...] d51.3 aflutter Reason for Visit BMI 28.0-28.9,adult [id number] Dietary counseling and surveillance Hyperlipidemia Hypertension Peripheral [...] Falls, Shaky Reason for Visit BMI 28.0-28.9,adult [id number] Dietary counseling and surveillance Hyperlipidemia Hypertension Peripheral [...] Falls, Shaky Reason for Visit BMI 28.0-28.9,adult [id number] Dietary counseling and surveillance Hyperlipidemia Hypertension Peripheral [...] on phone Reason for Visit BMI 28.0-28.9,adult [id number] Dietary counseling and surveillance Hyperlipidemia Hypertension Peripheral [...] Vitamin B 12 deficiency Weakness BMI 28.0-28.9,adult [id number] Dietary counseling and surveillance Hyperlipidemia Hypertension Peripheral neuropathy Type 2 diabetes mellitus Vitamin B 12 deficiency Chief Complaint E11.9 E78.5 E53.8 Amb Documentation brent on phone chest pains chest pains Amb Documentation Hospital follow up g72.9 g62.9 r79.89 g60.9 z11.3 e53.1 i70.91 d51.3 aflutter Multiple Falls, Shaky Amb Documentation brent on phone typical a flutter Reason for Visit BMI 28.0-28.9,adult [id number] Dietary counseling and surveillance Hyperlipidemia Hypertension Peripheral [...] Weakness Abnormal thyroid blood test BMI 28.0-28.9,adult [id number] Dietary counseling and surveillance Hyperlipidemia Hypertension Peripheral neuropathy Type 2 diabetes mellitus Vitamin B 12 deficiency Chief Complaint E11.9 E78.5 E53.8 Amb Documentation brent on phone chest pains chest pains Amb Documentation Hospital follow up g72.9 g62.9 r79.89 g60.9 z11.3 e53.1 i70.91 d51.3 aflutter Multiple Falls, Shaky Amb Documentation brent on phone typical a flutter typical a flutter [facility] [place] Reason for Visit BMI 28.0-28.9,adult [id number] Dietary counseling and surveillance Hyperlipidemia Hypertension Peripheral [...] Weakness Abnormal thyroid blood test BMI 28.0-28.9,adult [id number] Dietary counseling and surveillance Hyperlipidemia Hypertension Peripheral neuropathy Type 2 diabetes mellitus Vitamin B 12 deficiency Hospital discharge follow-up Hypomagnesemia Chief Complaint E11.9 E78.5 E53.8 Amb Documentation brent on phone chest pains chest pains Amb Documentation Hospital follow up g72.9 g62.9 r79.89 g60.9 z11.3 e53.1 i70.91 d51.3 aflutter Multiple Falls, Shaky Amb Documentation brent on phone typical a flutter typical a flutter [facility] follow up G62.9 G60.9 R79.89 Z11.3 E53.1 I70.31 D51.3 Reason for Visit BMI 28.0-28.9,adult [id number] Dietary counseling and surveillance Hyperlipidemia Hypertension Peripheral [...] Weakness Abnormal thyroid blood test BMI 28.0-28.9,adult [id number] Dietary counseling and surveillance Hyperlipidemia Hypertension Peripheral neuropathy Type 2 diabetes mellitus Vitamin B 12 deficiency Hospital discharge follow-up Hypomagnesemia Chief Complaint E11.9 E78.5 E53.8 Amb Documentation brent on phone chest pains chest pains Amb Documentation Hospital follow up g72.9 g62.9 r79.89 g60.9 z11.3 e53.1 i70.91 d51.3 aflutter Multiple Falls, Shaky Amb Documentation brent on phone typical a flutter typical a flutter [facility] follow up G62.9 G60.9 R79.89 Z11.3 E53.1 I70.31 D51.3 g62.9 r79.89 g60.9 z11.3 e53.1 d51.3 Reason for Visit BMI 28.0-28.9,adult [id number] Dietary counseling and surveillance Hyperlipidemia Hypertension Peripheral [...] Weakness Abnormal thyroid blood test BMI 28.0-28.9,adult [id number] Dietary counseling and surveillance Hyperlipidemia Hypertension Peripheral neuropathy Type 2 diabetes mellitus Vitamin B 12 deficiency Hospital discharge follow-up Hypomagnesemia Chief Complaint g72.9 g62.9 r79.89 g 60.9 z11.3 e53.1 i70.91 d51.3 aflutter Multiple Falls, Shaky Amb Documentation brent on phone typical a flutter typical a flutter [facility] follow up G62.9 G60.9 R79.89 Z11.3 E53.1 I70.31 D51.3 g62.9 r79.89 g60.9 z11.3 e53.1 d51.3 M54.17 Reason for Visit Ambulatory dysfuncti on Hypomagnesemia Hypothyroid Type 2 diabetes mellitus with hyperglycemia Vitamin B 12 deficiency Weakness Abnormal thyroid blood test BMI 28.0-28.9,adult [id number] Dietary counseling and surveillance Hyperlipidemia Hypertension Peripheral neuropathy Type 2 diabetes mellitus Vitamin B 12 deficiency Hospital discharge follow-up Hypomagnesemia Chief Complaint g72.9 g62.9 r79.89 g 60.9 z11.3 e53.1 i70.91 d51.3 aflutter Multiple Falls, Shaky Amb Documentation brent on phone typical a flutter typical a flutter [facility] follow up G62.9 G60.9 R79.89 Z11.3 E53.1 I70.31 D51.3 g62.9 r79.89 g60.9 z11.3 e53.1 d51.3 M54.17 R60.0 M79.671 r/o dvt Reason for Visit Ambulatory dysfuncti on Hypomagnesemia Hypothyroid Type 2 diabetes mellitus with hyperglycemia Vitamin B 12 deficiency Weakness Abnormal thyroid blood test BMI 28.0-28.9,adult [id number] Dietary counseling and surveillance Hyperlipidemia Hypertension Peripheral neuropathy Type 2 diabetes mellitus Vitamin B 12 deficiency Hospital discharge follow-up Hypomagnesemia Chief Complaint g72.9 g62.9 r79.89 g 60.9 z11.3 e53.1 i70.91 d51.3 aflutter Multiple Falls, Shaky Amb Documentation brent on phone typical a flutter typical a flutter [facility] follow up G62.9 G60.9 R79.89 Z11.3 E53.1 I70.31 D51.3 g62.9 r79.89 g60.9 z11.3 e53.1 d51.3 M54.17 R60.0 M79.671 r/o dvt L97.511 L03.115 lumbosacral radiculopathy at s1 Reason for Visit Ambulatory dysfuncti on Hypomagnesemia Hypothyroid Type 2 diabetes mellitus with hyperglycemia Vitamin B 12 deficiency Weakness Abnormal thyroid blood test BMI 28.0-28.9,adult [id number] Dietary counseling and surveillance Hyperlipidemia Hypertension Peripheral neuropathy Type 2 diabetes mellitus Vitamin B 12 deficiency Hospital discharge follow-up Hypomagnesemia Chief Complaint aflutter Multiple Falls, Shaky Amb Documentation brent on phone typical a flutter typical a flutter [facility] follow up G62.9 G60.9 R79.89 Z11.3 E53.1 I70.31 D51.3 g62.9 r79.89 g60.9 z11.3 e53.1 d51.3 M54.17 R60.0 M79.671 r/o dvt L97.511 L03.115 lumbosacral radiculopathy at s1 8 Month F/U Reason for Visit Ambulatory dysfuncti on Hypomagnesemia Hypothyroid Type 2 diabetes mellitus with hyperglycemia Vitamin B 12 deficiency Weakness Abnormal thyroid blood test BMI 28.0-28.9,adult [id number] Dietary counseling and surveillance Hyperlipidemia Hypertension Peripheral [...] 2024 11:14am Dietary counseling and surveillance Dece mber 2023 11:14am Hyperlipidemia April 28, 2024 11:14am Hypertension April 28, 2024 11:14am Peripheral neuropathy April 28 11:14am Type 2 diabetes mellitus April 28, 2024 11:14am Vitamin B 12 deficiency April 28 024 11:14am TIA (transient ischemic attack) April 28, 2024 10:38pm Reason for Visit Admit Date High granulocyte count April 14 9:30am Secondary polycythemia April 14 9:30am BMI 32.0-32.9,adult April 28, 2024 11:14am Chronic kidney disease (CKD) stage G2/A2, mildly decreased glomerular filtr April 28, 2024 11:14am Dietary counseling and surveillance Dece [facility] 2023 11:14am Hyperlipidemia April 28, 2024 11:14am Hypertension April 28, 2024 11:14am Peripheral neuropathy April 28 11:14am Type 2 diabetes mellitus April 28, 2024 11:14am Vitamin B 12 deficiency April 28 11:14am Atrial fibrillation April 28, 2024 10:38pm Generalized weakness April 28, 2024 10:38pm Insulin dependent diabetes mellitus Dece abrazo [facility] 2023 10:38pm TIA (transient ischemic attack) April 28, 2024 10:38pm Chief Complaint Admit Date Screening, Dysphagia February 14, 2024 12:30pm NEW elevated WBC April 14, 2024 9:30am irregular heart beat, dizziness, weaknes s April 27, 2024 2:18pm Follow Up 2 Weeks April 28, 2024 9:53am brent on phone April 28, 2024 11:14am Weakness April 28, 2024 10:38pm [facility] FOLLOW UP May 07 1:02pm Reason for Visit Admit Date High granulocyte count April 14 9:30am Secondary polycythemia April 14 9:30am High granulocyte count April 28 9:53am Secondary polycythemia April 28 9:53am BMI 32.0-32.9,adult April 28, 2024 11:14am Chronic kidney disease (CKD) stage G2/A2, mildly decreased glomerular filtr April 28, 2024 11:14am Dietary counseling and surveillance Dece abrazo [facility] 2023 11:14am Hyperlipidemia April 28, 2024 11:14am Hypertension April 28, 2024 11:14am Peripheral neuropathy April 28 11:14am Type 2 diabetes mellitus April 28, 2024 11:14am Vitamin B 12 deficiency April 28 11:14am Atrial fibrillation April 28, 2024 10:38pm Generalized weakness April 28, 2024 10:38pm Insulin dependent diabetes mellitus Dece abrazo [facility] 2023 10:38pm TIA (transient ischemic attack) April 28, 2024 10:38pm Cigarette nicotine dependence April 1:02pm Chief Complaint Admit Date NEW elevated WBC April 14, 2024 9:30am irregular heart beat, dizziness, weaknes s April 27, 2024 2:18pm Follow Up 2 Weeks April 28, 2024 9:53am brent on phone April 28, 2024 11:14am Weakness April 28, 2024 10:38pm [facility] FOLLOW [facility] May 07 1:02pm G45.9 [...] 11:14am Dietary counseling and surveillance Dece abrazo [facility] 2023 11:14am Hyperlipidemia April 28, 2024 11:14am Hypertension April 28, 2024 11:14am Peripheral neuropathy April 28 11:14am Type 2 diabetes mellitus April 28, 2024 11:14am Vitamin B 12 deficiency April 28 11:14am Atrial fibrillation April 28, 2024 10:38pm Generalized weakness April 28, 2024 10:38pm Insulin dependent diabetes mellitus Dece abrazo [facility] 2023 10:38pm TIA (transient ischemic attack) April [...] 2024 11:14am Weakness April 28, 2024 10:38pm [facility] FOLLOW UP May 07 1:02pm G45.9 [...] 2024 11:14am Weakness April 28, 2024 10:38pm [facility] FOLLOW [facility] May 07 1:02pm G45.9 [...] 2024 11:14am Weakness April 28, 2024 10:38pm [facility]LLOW [facility] May 07 1:02pm G45.9 May 25, 2024 4 :33pm r06.02, r60.9, E11.65, E78.5 June 262024 10:35am Elevated WBC June 26, 2024 10:38am Unknown July 06, 2024 8:3 7pm 1 YEAR FOLLOW; JAJA'S B/L July 22 10:54am Reason for Visit Admit Date High granulocyte count April 28 9:53am Secondary polycythemia Max 31st, 20 24 9:53am BMI 32.0-32.9,adult April 28, 2024 11:14am Chronic kidney disease (CKD) stage G2/A2, mildly decreased glomerular filtr April 28, 2024 11:14am Dietary counseling and surveillance [facility] 2023 11:14am Hyperlipidemia April 28, 2024 11:14am Hypertension April 28, 2024 11:14am Peripheral neuropathy April 28 11:14am Type 2 diabetes mellitus April 28, 2024 11:14am Vitamin B 12 deficiency April 28 11:14am Atrial fibrillation April 28, 2024 10:38pm Generalized weakness April 28, 2024 10:38pm Insulin dependent diabetes mellitus [facility] 2023 10:38pm TIA (transient ischemic attack) April [...] 28, 2024 11:14am Dietary counseling and surveillance [facility] 2023 11:14am Hyperlipidemia April 28, 2024 11:14am Hypertension April 28, 2024 11:14am Peripheral neuropathy April 28 11:14am Type 2 diabetes mellitus April 28, 2024 11:14am Vitamin B 12 deficiency April 28 11:14am Atrial fibrillation April 28, 2024 10:38pm Generalized weakness April 28, 2024 10:38pm Insulin dependent diabetes mellitus De[facility] 2023 10:38pm TIA (transient ischemic attack) April [...] 1:46pm Depression December 15, 2024 1: 46pm Chief Complaint Admit Date G47.33 October 01, 2024 2:34p m L97.512 November 16, 2024 4:48 pm establish December 15, 2024 1: 46pm Unspecified sleep apnea December 24 7:39pm Reason for Visit Admit Date Atrial fibrillation [...] 15, 2024 1:46pm Insulin dependent diabetes mellitus 2024 1:46pm Lumbar spondylosis December 15, 2024 1: 46pm PAD (peripheral artery disease) November 272024 1:46pm Post-menopausal December 15, 2024 1: 46pm Screening for breast cancer December 15, 2024 1:46pm Screening for lung cancer December 15, 2 025 1:46pm Screening for osteoporosis December 15, 2024 1:46pm Wound of foot December 15, 2024 1: 46pm Chief Complaint Admit Date L97.512 November 16, 2024 4:48 pm establish December 15, 2024 1: 46pm Unspecified sleep apnea December 24 7:39pm APNEA December 31, 2024 12:00am Reason for Visit Admit Date Allergy to honey bee venom December 15, 2024 1:46pm Atrial fibrillation December 15, 2024 1: 46pm Current every day smoker December 15 1:46pm Depression December 15, 2024 1: 46pm Diabetes mellitus with neuropathy December 15, 2024 1:46pm Insulin dependent diabetes mellitus Nov 2024 1:46pm Lumbar spondylosis December 15, 2024 1: 46pm PAD (peripheral artery disease) November 272024 1:46pm Post-menopausal December 15, 2024 1: 46pm Screening for breast cancer December 15, 2024 1:46pm Screening for lung cancer December 15, 2 025 1:46pm Screening for osteoporosis December 15, 2024 1:46pm Wound of foot December 15, 2024 1: 46pm BMI 32.0-32.9,adult January 05, 2025 1:23pm Dietary counseling and surveillance Dec 1:23pm Hyperlipidemia January 05, 2025 1:23pm Hypertension January 05, 2025 1:23pm Peripheral neuropathy January 05 1:23pm Type 2 diabetes mellitus January 05, 2025 1:23pm Vitamin B 12 deficiency January 05 025 1:23pm Chief Complaint Admit Date L97.512 November 16, [...] 15, 2024 1:46pm Insulin dependent diabetes mellitus [facility] 2024 1:46pm Lumbar spondylosis December 15, 2024 [...] 05, 2025 1:23pm Dietary counseling and surveillance Dec 1:23pm Hyperlipidemia January 05, 2025 1:23pm Hypertension January 05, 2025 1:23pm Peripheral neuropathy January 05 1:23pm Type 2 diabetes mellitus January 05, 2025 1:23pm Vitamin B 12 deficiency January 05 025 1:23pm Current every day smoker January 12, 2025 2:19pm Depression January 12, 2025 2:19pm Lesion of spleen January 12, 2025 2:19pm Reason for Referral Specialty Diagnoses / Procedures Referred By Tahmina t Referred To Contact Diagnoses Typical atrial flutter (Multi) Procedures ECG 12 Lead Jonas Ch MD [address] [facility] 2, [place] [address] [place] [address] Referral ID Status Reason Start Date Expiration Date V isits Requested Visits Authorized [id number] Authorized 11/13/2023 11/12/2024 1 1 Specialty Diagnoses / Procedures Referred By Contac t Referred To Contact Diagnoses Typical atrial flutter (Multi) Procedures Complete Pulmonary Function Test (Spirometry/DLCO/Lung Volumes) Jonas Ch MD [address] [facility] 2, [address] [place] [address] Referral ID Status Reason Start Date Expiration Date V isits Requested Visits Authorized [id number] Pending Review 11/13/2023 11/12/2024 1 1 Specialty Diagnoses / Procedures Referred By Contac t Referred To Contact Radiology Diagnoses Typical atrial flutter (Multi) Procedures XR chest 2 views Jonas Ch MD [address] [facility] 2, [place] [address] [place] [address] Referral ID Status Reason Start Date Expiration Date Visits Requested Visits Authorized [id number] Authorized Perform Procedure 11/13/2023 11/12/2024 1 1 Specialty Diagnoses / Procedures Referred By Contac t Referred To Contact Cardiology Diagnoses Nonischemic cardiomyopathy (Multi) Procedures Follow Up In Cardiology Jonas Ch MD [address] [facility] 2, [place] [address] [place] [address] Roland Faust MD [address] [facility] 2, [place] [address] [place] [address] Referral ID Status Reason Start Date Expiration Date V isits Requested Visits Authorized [id number] Authorized 11/13/2023 11/12/2024 1 1 Specialty Diagnoses / Procedures Referred By Contac t Referred To Contact Cardiology Diagnoses Typical atrial flutter (Multi) Procedures Cardioversion External Jonas Ch MD [address], [address] [place] [address] Referral ID Status Reason Start Date Expiration Date V isits Requested Visits Authorized [id number] Pending Review 10/07/2023 10/06/2024 1 1 Specialty Diagnoses / Procedures Referred By Tahmina thurston Referred To Contact Cardiology Diagnoses Typical atrial flutter (Multi) Procedures Follow Up In Cardiology Jonas Ch MD [address] [facility] 2, [address] [place] [address] Jonas Ch MD [address] [facility] 2, [address] [place] [address] Referral ID Status Reason Start Date Expiration Date V isits Requested Visits Authorized [id number] Authorized 10/07/2023 10/06/2024 1 1 Reason LEFT FOOT INJURY Diagnosis 1 Type 2 diabetes ye itus with hyperglycemia (E11.65) Diagnosis 2 Injury of foot, left (S99.922A) Referral Organization [facility] Referring Provider First Name Angelique Referring Provider Last Name Mapus Referring Provider Specialty Nurse Pract itioner Referred Organization [facility] Referred Provider Karl Fritz Referred Address ,[place], [place],[address] Referred Provider Specialty Podiatry - S urgical Chiropody Referral Priority Routine Referral Appointment Date 2023-01-09 General Notes Emerald Doshi 12/28 03:26:20 PM >SCHEDULED FOR 01/09/23 AT 10:15AM. PATIENT INFORMED. Additional Source Comments INFORMATION SOURCE (unrecogn ized section and content) DATE CREATED AUTHOR 10/21/2017 [facility] DATE CREATED AUTHOR AUTHOR'S ORGANIZ ATION 10/22/2017 [facility] DATE CREATED AUTHOR AUTHOR'S ORGANIZ ATION 02/16/2019 [facility] DATE CREATED AUTHOR AUTHOR'S ORGANIZ ATION 02/02/2022 [facility] DATE CREATED AUTHOR AUTHOR'S ORGANIZ ATION 11/16/2024 [facility] DATE CREATED AUTHOR AUTHOR'S ORGANIZ ATION 01/01/2025 [facility] DATE CREATED AUTHOR AUTHOR'S ORGANIZ ATION 01/03/2025 [facility] DATE CREATED AUTHOR AUTHOR'S ORGANIZ ATION 01/04/2025 [facility] EPIC REASON FOR VISIT (unrecogniz ed section and content) Reason Comments [facility] [place] [facility] [place] Reason Comments Peripheral Neuropathy Reason Comments Blood Pressure Check With ekg Specialty Diagnoses / Procedures Referred By Tahmina t Referred To Contact Cardiology Diagnoses Hypertension, unspecified type Procedures Follow Up In Cardiology Roland Faust MD [address] [facility] 2, [address] [address] Phone: tel: fax: Roland Faust MD [address] [place] [address] [address], [address] [address] Phone: tel: fax: Referral ID Status Reason Start Date Expiration Date V isits Requested Visits Authorized [id number] Authorized 03/09/2024 03/09/2025 1 1 Reason Comments Follow-up [facility] follow up Specialty Diagnoses / Procedures Referred By Tahmina t Referred To Contact Cardiology Diagnoses Typical atrial flutter (Multi) Procedures Follow Up In Cardiology Jonas Ch MD [address] [place] [address] [address], [address] [address] Jonas Ch MD [address] [place] [address] [address], [address] [address] Referral ID Status Reason Start Date Expiration Date V isits Requested Visits Authorized [id number] Authorized 10/07/2023 10/06/2024 1 1 Reason Comments cognitive decline Reason Comments Follow-up Medication change, A sherman d/c Specialty Diagnoses / Procedures Referred By Tahmina t Referred To Contact Cardiology Diagnoses Typical atrial flutter (Multi) Procedures Follow Up In Cardiology Roland Faust MD [address] [facility] 2, [address] [address] Roland Faust MD [address] [place] [place] [phone] Referral ID Status Reason Start Date Expiration Date V isits Requested Visits Authorized [id number] Authorized 11/28/2023 11/27/2024 1 1 Specialty Diagnoses / Procedures Referred By Contac t Referred To Contact Neurology Diagnoses Carpal tunnel syndrome, bilateral upper limbs Procedures OR INJECTION THERAPEUTIC CARPAL TUNNEL OR KETOROLAC TROMETHAMINE INJ 1 CC STERILE SYRINGE&NEEDLE Oz Kincaid MD [address] [place] [phone] Oz Kincaid MD [address] [place] [phone] Referral ID Status Reason Start Date Expiration Date V isits Requested Visits Authorized [id number] Closed Perform Procedure 12/16/2023 06/13/2024 1 1 Reason Comments Follow-up 4 month with EKG. Pt denies c/o at this time. Specialty Diagnoses / Procedures Referred By Contac t Referred To Contact Cardiology Diagnoses Nonischemic cardiomyopathy (Multi) Procedures Follow Up In Cardiology Jonas Ch MD Traboulssi, Mourhaf, MD [address] [place], [place] [id number] Phone: tel: fax: Referral ID Status Reason Start Date Expiration Date V isits Requested Visits Authorized [id number] Pending Review 11/13/2023 11/12/2024 1 1 Reason Comments cognitive decline Reason Comments Med Refill Reason Comments Follow-up 6 month, nonischemic cardiomyopathy Specialty Diagnoses / Procedures Referred By Contac t Referred To Contact Cardiology Diagnoses Nonischemic cardiomyopathy (Multi) Procedures Follow Up In Cardiology Roland Faust MD [address] [address] Phone: tel: fax: Referral ID Status Reason Start Date Expiration Date V isits Requested Visits Authorized [id number] Authorized 06/26/2024 06/26/2025 1 1 Care Teams (unrecognized sec tion [...] July 22, 2024 End: July 22, 2024 Latricia Jacobs NP-C Attending Provider Active Start: July 22, 2024 [...] Status: Inactive Member Role Status Dates Sandra A Keita , DO Primary Care Provider Active Start: June [...] 2023 End: September 14, [address] [facility] Other Provider Active Sta rt: September 13, [...] Start: M ay 2023 Elizabeth Parra , [facility] Other Provider Active Sta rt: September 14, [...] September 17, 2023 End: September 17, 2023 Metal Bonding Press Operator Relationship Specialty Start Date End Date Sandra Keita DO [address] [facility] [place] [address] PCP - General Family Medicine 09/25/23 Team [...] End: September 14, 2023 Elizabeth Parra , [facility] Other Provider Active Sta rt: September 14, [...] Active Start: November 10, 2023 Rl Villavicencio , DO Emergency Provider [...] 2023 End: November 12, 2023 Dayana Dodge ANP- Other Provider Active Start: November 10, 2023 End: November 12, 2023 Roque Isidro DO Other Provider Active Start: November 10, 2023 End: November 12, 2023 Tracy Calvo APRN Other Provider Active St art: November 10, 2023 End: November 12, 2023 Tayler Medina NP-C Other Provider Active Sta rt: November 10, 2023 End: November 12, 2023 Jeanine Ibrahim APRN-PRODUCTION SUPPORT ANALYST-C Other Provider Active Start: November 10, 2023 End: November 12, 2023 Chaka Frye MD Attending Provider Active Start: November 10, 2023 End: November 12, 2023 Team Status: Active Member Role Status Dates Sandra A Keita , DO Primary Care Provider Active Start: November [...] January 15, 2024 End: January 15, 2024 Metal Bonding Press Operator Relationship Specialty Start Date End Date Sandra Keita DO [address] [place] [address] PCP - General Family Medicine 01/09/23 Team Status: Inactive Member Role Status Dates Sandra Keita DO Primary Care Provide r, Attending Provider Active Start: February 03, 2024 End: February 03, 2024 Metal Bonding Press Operator Relationship Specialty Start Date End Date Sandra Keita DO [address] [place] [address] PCP - General Family Medicine 01/09/23 Metal Bonding Press Operator Relationship Specialty Start Date End Date Sandra Keita DO [address] [place] [address] PCP - General Family Medicine 01/09/23 Metal Bonding Press Operator Relationship Specialty Start Date End Date Sandra Keita DO [address] [place] [address] PCP - General Family Medicine 01/09/23 Metal Bonding Press Operator Relationship Specialty Start Date End Date Sandra Keita DO [address] [place] [address] PCP - General Family Medicine 01/09/23 Metal Bonding Press Operator Relationship Specialty Start Date End Date Millie Keitarirebecca Fernandez [address] [place] [address] PCP - General Family Medicine 09/25/23 Metal Bonding Press Operator Relationship Specialty Start Date End Date KeitaMillieSandraDO jacob [address] [place] [address] PCP - General Family Medicine 01/09/23 Metal Bonding Press Operator Relationship Specialty Start Date End Date Sandra Keita [address] [place] [address] PCP - General Family Medicine 01/09/23 Metal Bonding Press Operator Relationship Specialty Start Date End Date Sandra Keita DO [address] [place] [address] PCP - General Family Medicine 01/09/23 Metal Bonding Press Operator Relationship Specialty Start Date End Date Sandra Keita RebeccaDO [address] [place] [address] PCP - General Family Medicine 09/25/23 Metal Bonding Press Operator Relationship Specialty Start Date End Date Sandra Keita DO [address] [place] [address] PCP - General Family Medicine 01/09/23 Metal Bonding Press Operator Relationship Specialty Start Date End Date Sandra Keita DO [address] [place] [address] PCP - General Family Medicine 01/09/23 Metal Bonding Press Operator Relationship Specialty Start Date End Date Sandra Keita DO [address] [place] [address] PCP - General Family Medicine 09/25/23 Metal Bonding Press Operator Relationship Specialty Start Date End Date Sandra Keita DO [address] [place] [address] PCP - General Family Medicine 01/09/23 Metal Bonding Press Operator Relationship Specialty Start Date End Date Debbie DO Sandra [address] [place] [address] PCP - General Family Medicine 01/09/23 Metal Bonding Press Operator Relationship Specialty Start Date End Date Sandra Keita DO [address] [place] [phone] PCP - General Family Medicine 01/09/23 Metal Bonding Press Operator Relationship Specialty Start Date End Date Sandra Keita DO [address] [place] [address] PCP - General Family Medicine 01/09/23 Metal Bonding Press Operator Relationship Specialty Start Date End Date KeitaMagdalenarebecca [address] [place] [address] PCP - General Family Medicine 01/09/23 Metal Bonding Press Operator Relationship Specialty Start Date End Date Sandra Keita DO [address] [place] [address] PCP - General Family Medicine 01/09/23 Metal Bonding Press Operator Relationship Specialty Start Date End Date Sandra Keita DO [address] [place] [address] PCP - General Family Medicine 01/09/23 Metal Bonding Press Operator Relationship Specialty Start Date End Date Sandra Keita DO [address] [place] [address] PCP - General Family Medicine 01/09/23 Metal Bonding Press Operator Relationship Specialty Start Date End Date Sandra Keita DO [address] [place] [address] PCP - General Family Medicine 01/09/23 Team [...] 28, 2024 End: April 28, 2024 Nataliya Beaver NITZA Jane Attending Provider Active Start: March End: April [...] 28, 2024 End: April 30, 2024 Jori eHarn DO Admit Provider Active Start: April 28, [...] May 25, 2024 End: May 25, 2024 Metal Bonding Press Operator Relationship Specialty Start Date End Date Sandra Keita DO [address] [facility] [place] [address] PCP - General Family Medicine 09/25/23 Team Status: Inactive Member Role Status Dates Sandra Keita DO Primary Care Provider Active Start: April 28, 2024 End: April 28, 2024 Nataliya Jane APRN Attending Provider Active Start: March End: April 28, 2024 Metal Bonding Press Operator Relationship Specialty Start Date End Date Sandra Keita DO [address] [facility] [place] [address] PCP - General Family Medicine 01/09/23 Team [...] October 01, 2024 End: October 01, 2024 Metal Bonding Press Operator Relationship Specialty Start Date End Date Sandra Keita DO PCP - General Family Medicine 01/09/23 Metal Bonding Press Operator Relationship Specialty Start Date End Date Sandra Keita DO PCP - General Family Medicine 01/09/23 Metal Bonding Press Operator Relationship Specialty Start Date End Date Sandra Keita DO PCP - General Family Medicine 01/09/23 Metal Bonding Press Operator Relationship Specialty Start Date End Date Keita, SandraDO jacob [address] [place] [address] PCP - General Family Medicine 10/15/24 Metal Bonding Press Operator Relationship Specialty Start Date End Date Sandra Keita DO [address] [place] [address] PCP - General Family Medicine 10/15/24 Metal Bonding Press Operator Relationship Specialty Start Date End Date Sandra Keita DO [address] [place] [address] PCP - General Family Medicine 10/15/24 Metal Bonding Press Operator Relationship Specialty Start Date End Date Sandra Keita DO [address] [place] [address] PCP - General Family Medicine 10/15/24 Team [...] November 16, 2024 End: November 16, 2024 Metal Bonding Press Operator Relationship Specialty Start Date End Date Sandra Keita DO [address] [place] [address] PCP - General Family Medicine 10/15/24 Metal Bonding Press Operator Relationship Specialty Start Date End Date Sandra Keita DO [address] [place] [address] PCP - General Family Medicine 10/15/24 Team Status: Active Member Role Status Dates Shantel Norton APRN MANAGER MEDIA-C Primary Care Provider Active Team Status: Inactive Member Role Status Dates Shantel Norton APRN MANAGER MEDIA-C Primary Care Provider Active Start: December 15, 2024 End: December 15, 2024 Shantel Norton APRN MANAGER MEDIAElida Attending Provider Act [email or web address] Start: December 15, 2024 End: December 15, 2024 Metal Bonding Press Operator Relationship Specialty Start Date End Date Sandra Keita DO [address] [place] [address] PCP - General Family Medicine 10/15/24 Team Status: Inactive Member Role Status Dates Samm Medina MD Attending Provider Active S tart: December 24, 2024 End: December 24, 2024 Shantel Norton APRN MANAGER MEDIAHernandoC Primary Care Provider Active Start: December 24, 2024 End: December 24, 2024 Metal Bonding Press Operator Relationship Specialty Start Date End Date Shantel Norton APRN-AUTO CLAIM REPRESENTATIVE [address] [place] [address] PCP - General Family Medicine 12/30/24 Team Status: Active Member Role Status Dates Samm Medina MD Attending Provider Active S tart: December 31, 2024 Samm Medina MD Other Provider Active Start : December 31, 2024 Shantel Norton APRN MANAGER MEDIAHernandoC Primary Care Provider Active Start: December 312024 Team Status: Inactive Member Role Status Dates Shantel Norton APRN MANAGER MEDIA-C Primary Care Provider Active Start: January 052024 End: January 05, 2025 Angelique Russell APRN Attending Provider Active Start: January 05, 2025 End: January 05, 2025 Team Status: Inactive Member Role Status Dates Shantel Norton APRN MANAGER MEDIA-C Primary Care Provider Active Start: December 282024 End: January 12, 2025 NITZA Palacios Attending Provider Active Start: December End: January 12, 2025 Goals (unrecognized section and content) Goals may [...] BE BASED ON THE PRIMARY CLINICAL RECORDS. [email or web address] provides no warranty or guarantee of the accuracy or completeness of information in this document.
== END 2025-01-13 10:13 | disposition home or self-care (01) ==
LOC: WC 10:12
PROVIDERS: Family Provider Family Medicine; PCP Family Medicine; Visit Provider Podiatrist Foot & Ankle Surgery
DX: E11.621 Type 2 diabetes mellitus with foot ulcer (principal); L97.415 Non-pressure chronic ulcer of right heel and midfoot with muscle involvement without evidence of necrosis

== ENCOUNTER 2025-01-21 08:28 | Outpatient (OUT) | payer MEDICARE, MEDICAID, SELFPAY ==
--- OUTSIDE RECORDS SUMMARY | 2015-08-21 20:00 | XMS_ITS | Continuity of Care Document ---
Author Organization [facility] Address [address] [place] [address] Phone Care Team Providers Care Sales Recruiter Name Role Phone Bridget VARGAS, Margarita Unavailable [...] Diagnoses Date Provider Providers Copied on Encounter [facility], [address] [place], [place], [id number] , tel:[phone] [facility] - OP No Information 6 Bridget Avila. [address] [facility] Physician Office [place], [place], [id number], [place]. tel:[phone] Referring Provider: Margarita Gutierrez, [address] [facility] Physician Office Building, [place], [address] . tel:[phone] [facility], [address] [place], [place], [address] , tel:[phone] [facility] - OP Shortness of breathChest pain, unspecifiedDizzines s and giddiness 6 Susie Del Toro. [address] [facility] Physicians Office [place], [id number], [place]. tel:[phone] Referring Provider: Margarita Gutierrez, [address] [facility] Physician Office Building, [place], [address] . tel:[phone] [facility], [address] [facility], [place], [place], [address] , tel:[phone] [facility] - [facility] Shortness of breathChest pain, unspecifiedDizzines s and giddiness Apr-0 6-201 6 Jean Pierre-Marietta Blackwell. [address] [facility] Physicians Office Building, [place], [place], [facility], . tel:[phone] Referring Provider: Margarita Gutierrez, [address] [facility] Physician Office Building, [place], [address] . tel:[phone] Family History Family Member Type Diagnosis Age At Onset No Information Payers Payer name Insurance type Covered constitution party ID Jeremiah espinoza(link) Yoana [id number] Social History Type Description Quantity Date Captured [...]
--- OUTSIDE RECORDS SUMMARY | 2015-08-31 07:55 | XMS_ITS | Continuity of Care Document ---
Author Organization [facility] Address [address] [place] [address] Phone Care Team Providers Care Fur Repairer Name Role Phone Newton Segura MD Unavailable [...] by oral route every day - Active omeprazole 20 mg capsule,delayed release [...] by oral route every week - Active simvastatin 20 mg tablet take [...] Diagnoses Date Provider Providers Copied on Encounter [facility], [address] [place] [address], [id number], tel:[phone] [facility] No Information 6 Colton Glez. [address] [facility] Physician Office Building, [place], [place], [id number], . tel:[phone] OFFICE/OUTPAT IENT VISIT, [facility] Physician [facility], [address] [place] [address], [id number], [place] tel:[phone] [facility] Hyperlipidemia , unspecified hyperlipidemia typeObesity, unspecified obesity severity, unspecified obesity typeShortness of breathEssentia l hypertension, hypertension with unspecified goal 6 Georgia Mastersi. [address] [place] [address], [place], [place], [id number], [place]. tel:[phone] OFFICE CONSULTATION [facility] Physician [facility], [address] [place] [address], [id number], [place] tel:[phone] [facility] Shortness of breathEssentia l hypertension, hypertension with unspecified goalHyperlipid emia LDL goal <100Diabetes mellitus type II, non insulin dependent Jun- 6 Bridget Avila. [address] [facility] Physician Office Building, [place], [place], [id number], [place]. tel:[phone] Referring Provider: Sadie Fritz NP, [facility] Man[facility] [address]divar, [place], [address]. tel:[phone] [facility] Physician [facility], [address] [place] [address], [id number], [place] tel:[phone] [facility] No Information 6 Bridget Avila. [address] [facility] Physician Office Building, [place], [place], [id number], [place]. tel:[phone] OFFICE/OUTPAT IENT VISIT, [facility], [address] [place] [address], [id number], [place] tel:[phone] [facility] Obesity, Morbid (chief complaint) Body mass index (BMI) 33.0-33.9, adult 7201 5 Steve Bishop. [address] [facility] Physician Office Building, [place], [place], [id number], [place]. tel:[phone] Family History Family Member Type Diagnosis Age At Onset Sister Problem (finding) no hx of CAD Mother Problem (finding) CHF and HTN Brother Problem (finding) Alive and well Sister Problem (finding) 64 Father Problem (finding) [place] with hx of cabg (Cau se Of ) 79 Sister Problem (finding) myocardial inf arct in first degree female relative less than 65 years of age (Cause Of ) 64 Father Problem (finding) Brother Problem (finding) No hx of CAD Payers Payer name Insurance type Covered green party ID Jeremiah espinoza(rod Lees [id number] Social History Type Description Quantity Date Captured [...]
--- OUTSIDE RECORDS SUMMARY | 2020-07-25 11:15 | XMS_ITS | Continuity of Care Document ---
Author Organization [facility] Address [address] [place] [address] Phone Care Team Providers Care Geospatial Image Analyst Name Role Phone John Morgan Unavailable Unavailable [...] CHIROPRACTIC MANIPULATION GLYCOSYLATED HEMOGLOBIN TEST OFFICE/OUTPATIENT VISIT, [facility] Advance Directives Directive Yes / No Effective Date File Name No Information Encounters Encounter Description Practice Location Reason(s) For Visit Diagnoses Date Provider Providers Copied on Encounter [facility], [address] [place] [address], [id number] , tel: [phone] [facility] cervical spine (chief complaint) cervical spine (chief complaint) Segmental and somatic dysfunction of cervical regionCervicalgiaSegm ental and somatic dysfunction of lumbar region 9- 1 Eddie Lopez. [address] [place] [address], [id number] , [place]. tel: [phone] [facility], [address] [place] [address], [id number] , tel: [phone] [facility] cervical spine (chief complaint) cervical spine (chief complaint) Segmental and somatic dysfunction of cervical regionCervicalgiaSegm ental and somatic dysfunction of lumbar region 0-201 9 Eddie Lopez. [address] [place] [address], [id number] , [place]. tel: [phone] [facility], [address] [place] [address], [id number] , [place] tel: [phone] [facility] cervical spine (chief complaint) cervical spine (chief complaint) Segmental and somatic dysfunction of cervical regionCervicalgiaSegm ental and somatic dysfunction of lumbar regionLow back pain Jul-0 9-201 9 Eddie Lopez. [address] [place] [address], [id number] , [place]. tel: [phone] [facility], [address] [place] [address], [id number] , [place] tel: [phone] [facility] cervical spine (chief complaint) cervical spine (chief complaint) Segmental and somatic dysfunction of cervical regionCervicalgiaSegm ental and somatic dysfunction of lumbar regionLow back pain 9 Eddie Lopez. [address], [place], [id number] , [place]. tel: [phone] [facility], [address], [place], [id number] , [place] tel: [phone] [facility] cervical spine (chief complaint) cervical spine (chief complaint) Segmental and somatic dysfunction of cervical regionCervicalgiaSegm ental and somatic dysfunction of lumbar regionLow back pain 9 Eddie Lopez. [address], [place], [id number] , [place]. tel: [phone] [facility], [address] [place] [address], [id number] , [place] tel: [phone] [facility] cervical spine (chief complaint) cervical spine (chief complaint) Segmental and somatic dysfunction of cervical regionCervicalgiaSegm ental and somatic dysfunction of lumbar region 8 Eddie Lopez. [address], [place], [id number] , [place]. tel: [phone] [facility], [address] [place] [address], [id number] , [place] tel: [phone] [facility] Spine Care (chief complaint) Segmental and somatic dysfunction of cervical regionCervicalgiaSegm ental and somatic dysfunction of lumbar region 8 Eddie Lopez. [address] [place] [address], [id number] , [place]. tel: [phone] [facility], [address] [place] [address], [id number] , [place] tel: [phone] [facility] (chief complaint) Segmental and somatic dysfunction of cervical regionCervicalgiaSegm ental and somatic dysfunction of lumbar region 8 Eddie Lopez. [address], [place], [id number] , [place]. tel: [phone] [facility], [address] [place] [address], [id number] , [place] tel: [phone] [facility] (chief complaint) Segmental and somatic dysfunction of cervical regionCervicalgiaSegm ental and somatic dysfunction of lumbar regionOther intervertebral disc degeneration, lumbar region May-0 8 Eddie Lopez. [address], [place], [id number] , [place]. tel: [phone] [facility], [address], [place], [id number] , [place] tel: [phone] [facility]ine [facility] (chief complaint) Segmental and somatic dysfunction of lumbar regionLow back painOther intervertebral disc degeneration, lumbar regionSegmental and somatic dysfunction of cervical region Jul-2 0- 8 Eddie Lopez. [address], [place], [id number] , [place]. tel: [phone] [facility], [address] [place] [address], [id number] , [place] tel: [phone] [facility] (chief complaint) Segmental and somatic dysfunction of lumbar regionLow back painOther intervertebral disc degeneration, lumbar regionSegmental and somatic dysfunction of cervical region Jun-2 8 Eddie Lopez. [address], [place], [id number] , [place]. tel: [phone] [facility], [address], [place], [id number] , [place] tel: [phone] [facility] (chief complaint) Segmental and somatic dysfunction of lumbar regionLow back painOther intervertebral disc degeneration, lumbar regionSegmental and somatic dysfunction of cervical region Jun-2 2- 8 Eddie Lopez. [address], [place], [id number] , [place]. tel: [phone] [facility], [address], [place], [id number] , [place] tel: [phone] [facility]ine [facility] (chief complaint) Segmental and somatic dysfunction of lumbar regionLow back painOther intervertebral disc degeneration, lumbar regionSegmental and somatic dysfunction of cervical region Jun- 9- 8 Eddie Lopez. [address], [place], [id number] , [place]. tel: [phone] [facility], [address], [place], [id number] , [place] tel: [phone] [facility]ine [facility] (chief complaint) Segmental and somatic dysfunction of lumbar regionLow back painOther intervertebral disc degeneration, lumbar regionSegmental and somatic dysfunction of cervical region Jun-1 5-201 8 Eddie Lopez. [address], [place], [id number] , [place]. tel: [phone] [facility], [address], [place], [id number] , [place] tel: [phone] [facility] Spine Care (chief complaint) Segmental and somatic dysfunction of lumbar regionLow back painOther intervertebral disc degeneration, lumbar regionSegmental and somatic dysfunction of cervical region Jun-1 2-201 8 Eddie Lopez. [address] [place] [address], [id number] , [place]. tel: [phone] [facility], [address], [place], [id number] , [place] tel: [phone] [facility] Spine Care (chief complaint) Segmental and somatic dysfunction of lumbar regionLow back painOther intervertebral disc degeneration, lumbar regionSegmental and somatic dysfunction of cervical region Mar-0 8-201 8 Eddie Lopez. [address], [place], [id number] , [place]. tel: [phone] [facility], [address], [place], [id number] , [place] tel: [phone] [facility] Spine Care (chief complaint) Segmental and somatic dysfunction of lumbar regionLow back painOther intervertebral disc degeneration, lumbar regionSegmental and somatic dysfunction of cervical region Jun-0 5-201 8 Eddie Lopez. [address] [place] [address], [id number] , [place]. tel: [phone] [facility], [address] [place] [address], [id number] , [place] tel: [phone] [facility] Spine Care (chief complaint) Segmental and somatic dysfunction of lumbar regionLow back painOther intervertebral disc degeneration, lumbar regionSegmental and somatic dysfunction of cervical region Mar-0 1- 8 Eddie Lopez. [address], [place], [id number] , [place]. tel: [phone] [facility], [address], [place], [id number] , [place] tel: [phone] [facility] Spine Care (chief complaint) Segmental and somatic dysfunction of lumbar regionLow back painOther intervertebral disc degeneration, lumbar regionSegmental and somatic dysfunction of cervical region Feb-2 6- 8 Eddie Lopez. [address], [place], [id number] , [place]. tel: [phone] [facility], [address] [place] [address], [id number] , [place] tel: [phone] [facility] Spine Care (chief complaint) Segmental and somatic dysfunction of lumbar regionLow back painOther intervertebral disc degeneration, lumbar regionSegmental and somatic dysfunction of cervical region Feb-2 2- 8 Eddie Lopez. [address], [place], [id number] , [place]. tel: [phone] [facility], [address], [place], [id number] , [place] tel: [phone] [facility] Spine Care (chief complaint) Segmental and somatic dysfunction of lumbar regionLow back painOther intervertebral disc degeneration, lumbar regionSegmental and somatic dysfunction of cervical region Feb-2 0- 8 Eddie Lopez. [address], [place], [id number] , [place]. tel: [phone] [facility], [address], [place], [id number] , [place] tel: [phone] [facility] No Information Ayn- 7 Eber Ramos. [address], [place], [id number] , [place]. tel: [phone] [facility], [address] [place] [address], [id number] , [place] tel:[phone] [facility] No Information 7 Eber Ramos. [address], [place], [id number] , [place]. tel: [phone] OFFICE/OUTPA TIENT VISIT, [facility], [address], [place], [id number] , [place] tel: [phone] [facility] est care (chief complaint) medication refill (chief complaint) Type 2 diabetes mellitus with hyperglycemiaType 2 DM with diabetic neuropathyInsomnia 7 Eber Ramos. [address] [place] [address], [id number] , [place]. tel: [phone] Family History Family Member Type Diagnosis Age [...] Urine microalbumin. Due on O due Goal Urine microalbumin. Due on A [...] Urine microalbumin. Due on M due Goal Hemoglobin A1C. Due on due Goal Dilated eye exam. Due on August due Goal Foot exam. Due on due Goal Lipid panel. Due on due Goal Urine microalbumin. Due on A due Goal Dental exam. Due on due Goal Dilated eye exam. Due on Jul due Goal Pneumococcal vaccine. Due on due Goal Urine microalbumin. Due on M due Goal Lipid panel. Due on due Goal Dilated eye exam. Due on Jun due Goal Pneumococcal vaccine. Due on due Goal Foot exam. Due on due Goal Dental exam. Due on due Goal Dental exam. [...] eye exam. Due on May due Goal Urine microalbumin. Due on due Goal Dilated eye exam. Due on Sep due Goal Foot exam. Due on 7 due Goal Lipid panel. Due on 017 due Goal Pneumococcal vaccine. [...] establish care, she recently moved back to [place] from [place]. She is here taking care of her mother. She was seeing Sadie Fritz PROGRAM TECHNICIAN in [place], states she just had blood work done beginning of June before moving here. A1C today 9.0. Patient states she does not currently have insurance since moving here from [place] and was unable to get her medications [...]
--- OUTSIDE RECORDS SUMMARY | 2025-01-19 16:00 | XMS_ITS | Encounter Summary ---
Author Organization [facility] Address [address] [place] [address] Care Team Providers Care Software Quality Automation Engineer Name Role Phone Sandra Lewis DO Primary Care Provider [phone] Reason for Visit * Reason Comments cognitive decline Encounter Details Date Type Department Care Team (Late st Contact Info) Description 01/19/2025 4:00 PM EDT Office Visit JUMA Ness [facility] Neurology [address] [facility] [address] [place] [address] Luan Kincaid MD [address] [facility] [address] [place] [address] Weakness of both lower extremities (Primary Dx); [...] Guyon syndrome, unspecified laterality (Continue avoiding compression.) documented in this encounter Plan of Treatment Upcoming Encounters Date Type Department Care Team (Late st Contact Info) Description 02/10/2025 1:00 PM EDT Office Visit [facility] [place] [facility]N [address] [place] [address] Nereida Castro MD [address] [place] [address] 07/20/2025 4:00 PM EDT Office Visit [facility] [address] [facility] [address] [place] [address] Luan Kincaid MD [address] [facility] [address] [place] [address] documented as of this encounter Visit Diagnoses Diagnosis Weakness of both lower extremities- Primary Carpal tunnel syndrome, bilateral Carpal tunnel syndrome Cognitive decline Cervical paraspinal muscle spasm Spasm of muscle B12 deficiency Guyon syndrome, unspecified laterality documented in this encounter Care Teams Software Quality Automation Engineer Relationship Specialty Start Date End Date Sandra Lewis DO [address] [facility] [place] [address] PCP - General Family Medicine 10/15/24 documented as of this encounter
--- OUTSIDE RECORDS SUMMARY | 2025-01-21 08:30 | XMS_ITS | Encounter Summary ---
Author Organization [facility] Address [address] [facility] [place] [address] Care Team Providers Care Stock Manager Name Role Phone Sandra Lewis Primary Care Provider [phone] Debbie Sandra BONNER Primary Care Provider [phone] Encounter Details Date Type Department Care Team (Late Contact Info) Description 12/13/2023 Orders Only [facility] 111 [address] [place] [address] Luan Kincaid MD [address] [place], [place] [id number] Social History Tobacco Use Types Packs/Day Years [...] Department Care Team (Late Contact Info) Description 02/10/2025 1:00 PM EDT Office Visit JUMA NUNN [address] [place] [address] Nereida Castro MD [address] [facility] 210 [place] [address] 07/20/2025 4:00 PM EDT Office Visit [facility] [address] [facility] [address] [place] [phone] Luan Kincaid MD 5319 [facility] 111 [place] [address] documented as of this encounter Visit Diagnoses Not on filedocumented in this encounter Care Teams Stock Manager Relationship Specialty Start Date End Date Sandra Lewis DO PCP - General Family Medicine 01/09/23 10/14/24 Sandra Lewis DO [address] [facility] [place] [address] PCP - General Family Medicine 10/15/24 documented as of this encounter
--- OUTSIDE RECORDS SUMMARY | 2025-01-21 08:30 | XMS_ITS | Encounter Summary ---
Author Organization [facility] Address [address] [place] [address] Care Team Providers Care Correctional Captain Name Role Phone Sandra Lewis Primary Care Provider [phone] Sandra Lewis DO Primary Care Provider [phone] Encounter Details Date Type Department Care Team (Late Contact Info) Description 12/17/2023 External Result Encounter NOMS External Department Unsolicited Luan Kincaid MD [address] [facility] 111 [place] [address] Social History Tobacco Use Types Packs/Day Years [...] EDT Office Visit JUMA NUNN [address] [place] [address] Nereida Castro MD [address] [facility] [address] [place] [address] 07/20/2025 4:00 PM EDT Office Visit [facility] [place] [facility] [address] [place] [address] Luan Kincaid MD [address] [facility] [address] [place] [address] documented as of this encounter [...] Luan Bowling M.D.12/17/2023 12:50 PM Dictation Location: [place] [address] Transcribed By: [facility] 12/17/23 1250 Dictated By: Luan Bowling II, MD 12/17/23 1240 Signed By: <Electronically signed by Luan Bowling II, MD in OV> 12/17/23 1250 Narrative 12/17/2023 12:53 PM EDT [facility] Main [address] [address] MRI Report Signed Patient: Kerry Gay MR#: [id number] 19 : 1955 Acct:[id number] Age/Sex: 68 / F ADM Date: 12/17/23 Loc: [facility] Room: [facility] Dr: Luan Kincaid MD Copies to: Luan Kincaid MD Ordering Provider: Luan Kincaid MD Date of Service: 12/17/23 MR/MR lumbar spine wo con: m54.17 ([id number]) XR/XR pre/post mri xray: post MRI lumbar [...] con Procedure Note Radiology, Radiologist, - 12/17/2023 [facility] Main [place] [address] [place], [place] [address] MRI Report Signed Patient: Kerry Gay CMR#: [id number] 19 : 8Acct:[id number] Age/Sex: 68 / FADM Date: 12/17/23 Loc: [facility] Room:Type: REG CLI Attending Dr: Luan Kincaid MD Copies to: Luan Kincaid MD Ordering Provider: Luan Kincaid MD Date of Service: 12/17/23 MR/MR lumbar spine wo con: m54.17 ([id number]) XR/XR pre/post mri xray: post MRI lumbar [...] Luan Bowling M.D.12/17/2023 12:50 PM Dictation Location: [place] [address] Transcribed By: [facility] 12/17/23 1250 Dictated By: Luna Bowling II, MD 12/17/23 1240 Signed By: <Electronically signed by Luan Bowling II, MD inOV> 12/17/23 1250 Luan Kincaid MD IMG MRI PROCEDURES Final Result documented in this encounter Visit Diagnoses Not on filedocumented in this encounter Care Teams Correctional Captain Relationship Specialty Start Date End Date Sandra Lewis DO PCP - General Family Medicine 01/09/23 10/14/24 Sandra Lewis DO [address] [facility] [place] [address] PCP - General Family Medicine 10/15/24 documented as of this encounter
--- OUTSIDE RECORDS SUMMARY | 2025-01-21 08:31 | XMS_ITS | Clinical Summary ---
Author Organization [facility] Address [address] [place] [address] Care Team Providers Care Power System Electrical Engineer Name Role Phone Sandra Lewis DO Primary Care Provider [phone] Allergies Active Allergy Reactions Criticality Noted Date Comments Sulfa Antibiotics GI intolerance,Unknown 2018 Medications Continuous Blood Gluc Sensor (Burst MediaStyle Brent 14 Day Sensor) [facility] [place] [place] 1 SENSOR as directed every 14 days use with DEVICE to MONIT... (REFER TO PRESCRIPTION NOTES). 3 Active Toujeo SoloStar 300 UNIT/ML injection inject 20 units subcutaneously as directed 3 Active Droplet Pen Revere 32G X 4 MM [facility] [place] use 1 PEN NEEDLE [...] mouth at bedtime 30 capsule 5 5 Active pregabalin (Lyrica) 300 MG capsuleIndicat ions:Neurogeni c pain TAKE 1 CAPSULE BY MOUTH TWICE A DAY 60 capsule 3 5 Active sertraline (Zoloft) 50 MG tablet Take 50 mg by mouth Daily 5 Active Active Problems Problem Noted Date Diagnosed Date Weakness of both lower extremities 10/06/2024 Overview (10/06/2024): --- multifactorial, including PN G62.9, radiculopathy M54.17. Assessment & Plan (01/19/2025 4:35 PM EDT): Exam in 6 mo. Pt to call fi sx worsen quickly. Assessment & Plan (10/06/2024 2:30 PM EDT): --- multifactorial, including PN G62.9, radiculopathy M54.17. Worsening. Redo [facility] BLE (first). Reorder PT - strengthening, balance. Likely will need redo MR L-spine and redo spinal surgery consult. TIA (transient ischemic attack) 05/13/2024 Granulocytosis 04/07/2024 Assessment & Plan (04/07/2024 2:16 PM EST): Consult haematology. Cognitive decline 02/25/2024 Assessment & Plan (01/19/2025 4:35 PM EDT): (Continue current regimen.) Assessment & Plan (10/06/2024 2:30 PM EDT): (Continue current regimen.) Assessment & Plan (07/21/2024 3:08 PM EDT): (Continue current regimen.) [facility] records - neuro consults, EEG, MR, carotids, echo, discharge summary. Assessment & Plan (04/07/2024 2:16 PM EST): Pt to retry donepezil 15 qam (or 10/5). Assessment & Plan (02/25/2024 2:59 PM EDT): Add memantine 10 -> bid. Then add donepezil 10, titrate. Handout. Get MR images transferred to [facility] PACS for my review. 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 Assessment & Plan (01/19/2025 4:35 PM EDT): (Continue avoiding compression.) Assessment & Plan (10/06/2024 2:30 PM EDT): [...] neuropathy, worsening. Get full set of labs (On [facility]). We have some but not [...] paraspinal muscle spasm 10/29/2023 Assessment & Plan (01/19/2025 4:35 PM EDT): (Continue current regimen, home PT.) Assessment & Plan (10/06/2024 2:30 PM EDT): [...] causing hand weakness R29.898. Assessment & Plan (01/19/2025 4:35 PM EDT): --- causing hand weakness R29.898. (Continue splints B nightly.) Assessment & Plan (10/06/2024 2:30 PM EDT): [...] 3:21 PM EDT): Restart splint use. ENMG BUMitzi. (2nd) Polyneuropathy 10/29/2023 Assessment & Plan (11/29/2023 3:06 PM EDT): Pt reports 2nd PO is high 1:320 but I don't see it in the labs. Let's make sure we get this. May need rheumatology consult. Neuropathy panel II. Assessment & Plan (10/29/2023 3:17 PM EDT): Redo neurop panel. Diabetic peripheral neuropathy 10/29/2023 B12 deficiency 10/29/2023 Assessment & Plan (01/19/2025 4:35 PM EDT): (Continue B12 SL.) Assessment & Plan (10/06/2024 2:30 PM EDT): [...] Encounters Date Type Department Care Team Description 01/19/2025 4:00 PM EDT [facility] [address] [place] [address] Luan Kincaid MD Weakness of both lower extremities (Primary Dx); Carpal tunnel syndrome, bilateral; Cognitive decline; Cervical paraspinal muscle spasm; B12 deficiency; Guyon syndrome, unspecified laterality 01/19/2025 Bamboo flowsheet [facility] [address] [place] [phone] Luan Kincaid MD 01/19/2025 Travel 12/31/2024 4:00 PM EDT [facility] [address] [place] [address] Lumbosacral radiculopathy at L5; Weakness of both lower extremities; Leg pain, bilateral 12/31/2024 Travel 12/18/2024 1:15 PM EDT [facility] [address] [place] [address] Luan Kincaid MD Numbness (Primary Dx); Paresthesias; Pain in both lower extremities; Lumbosacral radiculopathy at L5 12/18/2024 Orders Only [facility] [place] [facility] [address] [facility] 111 [place] [address] Luan Kincaid MD Lumbosacral radiculopathy at L5; Weakness of both lower extremities; Leg pain, bilateral 12/18/2024 Travel 12/11/2024 1:15 PM EDT [facility] [address] [place] [address] Luan Kincaid MD Hand weakness (Primary Dx); Carpal tunnel syndrome, bilateral 12/11/2024 Travel 11/30/2024 Telephone [facility] [place] [facility] [address] [place] [address] Maureen Fritz DPM Error (VOID this visit) 11/23/2024 2:45 PM EDT Office Visit [facility] [address] [place] [address] Maureen Fritz DPM Ulcer of right foot with fat layer exposed (HCC) (Primary Dx); 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); Abscess of right foot; At increased risk for emergency hospital admission 11/23/2024 Bamboo flowsheet [facility] [place] [facility] [address] [place] [address] Maureen Fritz DPM 11/23/2024 Travel 11/20/2024 Telephone [facility] [place] [facility] [address] [place] [address] Beatrice Boyd MA HH Orders Clarification 11/18/2024 Telephone [facility] [place] [facility] [address] [place] [address] Beatrice Boyd MA HH Orders 11/18/2024 Telephone [facility] [place] [facility] [address] [place] [address] Maureen Fritz DPM 11/16/2024 4:00 PM EDT Office Visit [facility] [place] [facility] [address] [place] [address] Maureen Fritz DPM Ulcer of right foot with fat layer exposed (HCC) (Primary Dx); 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); Cellulitis of right foot; Deformity of toe, right 11/16/2024 External Result Encounter NOMS External Department Unsolicited Maureen Fritz DPM 11/16/2024 Travel 11/16/2024 Telephone [facility] [address] [place] [phone] Shantel Parsons MA 10/31/2024 Refill [facility] [place] [facility] [address] [facility] [place] [phone] Luan Kincaid MD Neurogenic pain 10/21/2024 Telephone [facility] [place] [address] [place] [address] Luan Kincaid MD from Last 3 Months Family History Medical [...] Mass Index 30.54 01/19/2025 4:15 PM EDT Plan of Treatment Upcoming Encounters Date Type Department Care Team (Late st Contact Info) Description 02/10/2025 1:00 PM EDT Office [facility] [address] [place] [address] Nereida Castro MD [address] [place] [address] 07/20/2025 4:00 PM EDT Office Visit [facility] [address] [place] [address] Luan Kincaid MD [address] [facility] [address] [place] [address] Procedures Procedure Name Priority Date/Time Associated Diagnosis [...] ensure stability. ELECTRONICALLY SIGNED BY: Almas Reeves, Narrative 01/01/2025 10:01 AM EDT EXAM: MR [...] of the splenic parenchyma. Procedure Note Almas Reeves, DO - 01/01/2025 EXAM: MR LUMBAR SPINE [...] BY: Almas Reeves DO Luan Kincaid MD IMG MRI PROCEDURES Final Result * XR foot 3+ views right (11/16/2024 5:13 PM EDT) Anatomical Region Laterality Modality Lower Extremities, Foot Right [facility] Narrative 11/16/2024 5:13 PM EDT [...] metatarsal head right 1st metatarsal. Maureen Fritz DPZenon IMG XR PROCEDURES Final Re sult * (ABNORMAL) AEROBIC AFMILIA CHARGE (PCMIC38) (11/16/2024 4:48 PM EDT) AZITHROMYCIN <2(S) 11/18/2024 9:54 AM EDT [facility] CEFTAROLINE <0.5(S) 11/18/2024 9:54 AM EDT [facility] CIPROFLOXACIN <1(S) 11/18/2024 9:54 AM EDT [facility] CLINDAMYCIN 0.5(S) 11/18/2024 9:54 AM EDT [facility] DAPTOMYCIN 1(S) 11/18/2024 9:54 AM EDT [facility] LEVOFLOXACIN <1(S) 11/18/2024 9:54 AM EDT [facility] LINEZOLID 2(S) 11/18/2024 9:54 AM EDT [facility] OXACILLIN <0.25(S) 11/18/2024 9:54 AM EDT [facility] PENICILLIN >2(R) 11/18/2024 9:54 AM EDT [facility] TETRACYCLINE <4(S) 11/18/2024 9:54 AM EDT [facility] TRIMETHOPRIM/SULF AMETHOXAZOLE <0.5/9.5( S) 11/18/2024 9:54 AM EDT [facility] VANCOMYCIN 1(S) 11/18/2024 9:54 AM EDT [facility] Other Structure of right foot / Unknown 11/16/2024 4:48 PM EDT 11/16/2024 5:30 PM EDT Comment:Ulcer Maureen Fritz M [facility] Final Resu lt [facility] [address] [place] [phone], [facility] [address] [place] [phone] * (ABNORMAL) AEROBIC FAMILIA CHARGE (NMIC56) (11/16/2024 4:48 PM EDT) AMIKACIN <16(S) 11/18/2024 9:54 AM EDT [facility] AMOXACILLIN/K CLAVULANATE <8/4(S) 11/18/2024 9:54 AM EDT [facility] AMPICILLIN/SULBAC ARREDONDO 8/4(S) 11/18/2024 9:54 AM EDT [facility] AZTREONAM <4(S) 11/18/2024 9:54 AM EDT [facility] CEFAZOLIN >16(R) 11/18/2024 9:54 AM EDT [facility] CEFEPIME <2(S) 11/18/2024 9:54 AM EDT [facility] CEFTAZIDIME <1(S) 11/18/2024 9:54 AM EDT [facility] CEFTAZIDIME/AVIBA CTAM <4(S) 11/18/2024 9:54 AM EDT [facility] CEFTOLOZANE/TAZOB ACTAM <2(S) 11/18/2024 9:54 AM EDT [facility] CEFTRIAXONE <1(S) 11/18/2024 9:54 AM EDT [facility] CEFUROXIME 8(S) 11/18/2024 9:54 AM EDT [facility] CIPROFLOXACIN <0.25(S) 11/18/2024 9:54 AM EDT [facility] ERTAPENEM <0.5(S) 11/18/2024 9:54 AM EDT [facility] GENTAMICIN <2(S) 11/18/2024 9:54 AM EDT [facility] LEVOFLOXACIN <0.5(S) 11/18/2024 9:54 AM EDT [facility] MEROPENEM <1(S) 11/18/2024 9:54 AM EDT [facility] MEROPENEM/VABORBA CTAM <2(S) 11/18/2024 9:54 AM EDT [facility] PIPERACILLIN/TAZO BACTAM <8(S) 11/18/2024 9:54 AM EDT [facility] TETRACYCLINE <4(S) 11/18/2024 9:54 AM EDT [facility] TIGECYCLINE <2(S) 11/18/2024 9:54 AM EDT [facility] TOBRAMYCIN <2(S) 11/18/2024 9:54 AM EDT [facility] TRIMETHOPRIM/SULF AMETHOXAZOLE <0.5/9.5( S) 11/18/2024 9:54 AM EDT [facility] Other Structure of right foot / Unknown 11/16/2024 4:48 PM EDT 11/16/2024 5:30 PM EDT Comment:Ulcer Maureen Fritz DPM [facility] Final Resu lt Performing Organization Address [facility] Co de Phone Number [facility] [address] [place] [address], [facility] [address] [place] [address] * SUPERFICIAL WOUND CULTURE [place] (11/16/2024 4:48 PM EDT) [facility] Klebsiella oxytoca 9:54 AM EDT [facility] QUANTITY OF GROWTH Moderate Growth 11/18/2024 9:54 AM EDT [facility] Staphylococcus aureus 11/18/2024 9:54 AM EDT [facility] QUANTITY OF GROWTH Heavy Growth 11/18/2024 9:54 AM EDT [facility] Other Structure of right foot / Unknown 11/16/2024 4:48 PM EDT 11/16/2024 5:30 PM EDT Comment:Ulcer Maureen Fritz DPM LAB MICROBIOLOGY - GENERAL ORDERABLES Final Result Performing Organization Address [facility] Co de Phone Number [facility] [address] [place] [address], [facility] [address] [place] [address] from Last 3 Months Insurance [employer] MEDICARE [place]ICAID [place] Care Teams Power System Electrical Engineer Relationship Specialty Start Date End Date Sandra Lewis DO [address] [facility] [place] [address] PCP - General Family Medicine 10/15/24
--- OUTSIDE RECORDS SUMMARY | 2025-01-21 08:31 | XMS_ITS | Encounter Summary ---
Author Organization [facility] Address [address] [place] [address] Care Team Providers Care Entry Level Management Name Role Phone Sandra Lewis Primary Care Provider [phone] Sandra Lewis DO Primary Care Provider [phone] Encounter Details Date Type Department Care Team (Late st Contact Info) Description 10/30/2023 External Result Encounter NOMS External Department Unsolicited Luan Kincaid MD [address] [facility] 111 [place] [address] Social History Tobacco Use Types Packs/Day Years [...] NUNN [address] [place] [address] Nereida Castro MD [address] [facility] [address] [place] [address] 07/20/2025 4:00 PM EDT Office Visit [facility] [place] [facility] [address] [place] [address] Luan Kincaid MD [address] [facility] [address] [place] [address] documented as of this encounter [...] Segovia Jr., D.OKenisha10/30/2023 3:15 PM Dictation Location: [place] [address] Transcribed By: [facility] 10/30/23 1515 Dictated By: Edgar Segovia Jr, DO 10/30/23 1514 Signed By: <Electronically signed by Edgar Segovia Jr, DO in OV> 10/30/23 1515 Narrative 10/30/2023 3:17 PM EDT [facility] Main [place] [address] [place] [address] XRay Report Signed Patient: Kerry Gay MR#: [id number] 19 : 1955 Acct:[id number] Age/Sex: 67 / F ADM Date: 10/30/23 Loc: XD Room: Type: [facility] Attending Dr: Luan Kincaid MD Copies [...] bending Procedure Note Radiology, Radiologist, - 10/30/2023 [facility] Main [place] [address] [place] [address] XRay Report Signed Patient: Kerry Gay CMR#: [id number] 19 : 8Acct:[id number] Age/Sex: 67 / FADM Date: 10/30/23 Loc: XD Room:Type: [facility] Attending Dr: Luan Kincaid MD Copies [...] Segovia Jr., D.O.10/30/2023 3:15 PM Dictation Location: [place] [address] Transcribed By: [facility] 10/30/23 1515 Dictated By: Edgar Segovia Jr, DO 10/30/23 1514 Signed By: <Electronically signed by Edgar Segovia Jr, DO inOV> 10/30/23 1515 us Luan Kincaid MD IMG XR PROCEDURES Final Result documented in this encounter Visit Diagnoses Not on filedocumented in this encounter Care Teams Entry Level Management Relationship Specialty Start Date End Date Sandra Lewis DO [phone] (work) PCP - General Family Medicine 01/09/23 10/14/24 Sandra Lewis DO [address] [place] [address] PCP - General Family Medicine 10/15/24 documented as of this encounter
--- OUTSIDE RECORDS SUMMARY | 2025-01-21 08:31 | XMS_ITS | Clinical Summary ---
Author Organization [facility] Address [address] [place] [address] Care Team Providers Care Charge Entry Specialist Name Role Phone Darrell Weinstein Primary Care Provider [phone] Nereida Castro MD Unavailable [phone] Allergies Active Allergy Reactions Criticality Noted [...] N ot on file 04/03/2020 Data from: https://www.neighborhoodatlas.medicine.[facility]/. Last address used for calculation Not on [...] COMP METABOLIC PANEL (12/17/2018 3:05 PM EDT) [facility] [address] Protein, Total 7.6 6.3 - 8.0 g/dL 12/18/2018 3:[address] [facility] Albumin 4.2 3.9 - 4.9 g/dL 12/18/2018 3:[address] [facility] Calcium 10.6(H) 8.5 - 10.2 mg/dL 12/18/2018 3:[address] [facility] Bilirubin, Total 0.3 0.2 - 1.3 mg/dL 12/18/2018 3:[address] [facility] Alkaline Phosphatase 88 34 - 123 U/L 12/18/2018 3:[address] [facility] AST 28 13 - 35 U/L 12/18/2018 3:[address] [facility] Glucose 89 74 - 99 mg/dL 12/18/2018 3:[address] [facility] Comment: The [place] Diabetes Association (ADA) provides guidance for cutoff [...] Standards of Medical Care in Diabetes 2016, [place] Diabetes Association. Diabetes Care. 2016.39(Suppl 1). BUN 10 7 - 21 mg/dL 12/18/2018 3:[address] [facility] Creatinine 0.73 0.58 - 0.96 mg/dL 12/18/2018 3:[address] [facility] Sodium 138 136 - 144 mmol/L 12/18/2018 3:[address] [facility] Potassium 4.4 3.7 - 5.1 mmol/L 12/18/2018 3:[address] [facility] Chloride 100 97 - 105 mmol/L 12/18/2018 3:35 AM EDT [facility] CO2 21(L) 22 - 30 mmol/L 12/18/2018 3:35 AM EDT [facility] Anion Gap 17 9 - 18 mmol/L 12/18/2018 3:35 AM EDT [facility] ALT 22 7 - 38 U/L 12/18/2018 3:35 AM EDT [facility] eGFR- >60 12/18/2018 3:35 AM EDT [facility] eGFR-All Other Races >60 . 12/18/2018 3:35 AM EDT [facility] Comment: eGFR (Estimated GFR) Units of measure: [...] EDT 12/17/2018 3:07 PM EDT Shantel Celestin APRN.COMPLAINT CLERK LABORATORY Final R esult [facility] [address] [place] [address] [facility] [address] [place] [address] from Last 3 Months or Most Recently Relevant to Health Maintenance Insurance [facility] MEDICARE ADVANTAGE HMO Care Teams Charge Entry Specialist Relationship Specialty Start Date End Date Darrell Weinstein [address] [facility] [address] [place] [address] PCP - General Family Medicine 11/06/18 Nereida Castro MD [address] [facility] [address] [place] [address] Referring Obstetrics 11/06/18
--- OUTSIDE RECORDS SUMMARY | 2025-01-21 08:31 | XMS_ITS | Encounter Summary ---
Author Organization [facility] Address [address] [place] [address] Care Team Providers Care Metalsmith Apprentice Name Role Phone Darrell Weinstein Primary Care Provider [phone] Nereida Castro MD Unavailable [phone] Source Comments In the event this information is protected by the Federal Confidentiality of Alcohol and Drug AbusePatient Records regulations: The Federal rules restrict any use of the information to criminally investigate or prosecute any alcohol or drug abuse patient.[facility] Encounter Details Date Type Department Care Team (Late st Contact Info) Description 2022 [place] [address] Provider, f Medicare Coverage of Physical Exams [...] N ot on file 04/03/2020 Data from: https://www.neighborhoodatlas.medicine.[facility].edu/. Last address used for calculation Not [...] on filedocumented in this encounter Care Teams Metalsmith Apprentice Relationship Specialty Start Date End Date Darrell Weinstein [address] [facility] [address] [place] [address] PCP - General Family Medicine 11/06/18 Nereida Castro MD [address] [facility] [address] [place] [address] Referring Obstetrics 11/06/18 documented as of this encounter
--- OUTSIDE RECORDS SUMMARY | 2025-01-21 08:31 | XMS_ITS | Patient Health Record ---
Author Organization [facility] Address [address] [place] [address] Care Team Providers Care Vehicle Inspector Name Role Phone Dr. Edgar Garcia Primary Care Provider Reason For Referral No Information Plan Of Treatment No Information Insurance Providers Payer Name Payer Address Payer Phone Subscriber Number Group Number Insured Name Patient Relationship to Insured Coverage Start Date Coverage End Date MEDICARE CGS [address] [place] [address] [id number] ATYE MARCOS Self - patient is the insured 1 MEDICAID [place] [facility] [address] [place] [address] [id number] TAYE MARCOS Self - patient is the insured 1 [place] [address] [place] [address] [phone] [id number] TAYE MARCOS Self - patient is the insured 1
--- OUTSIDE RECORDS SUMMARY | 2025-01-21 08:31 | XMS_ITS | Clinical Summary ---
Author Organization [facility] Address [address] [place] [address] Phone Care Team Providers Care Drapery Installer Name Role Phone Shantel Norton APRN-WHIP SAWYER Primary Care Pro vider Allergies Active Allergy [...] Description 12/30/2024 1:40 PM EDT Office Visit [place] [id number] [address] Roland Faust MD Typical atrial flutter (Multi) (Primary Dx); Nonischemic cardiomyopathy (Multi); Hypertension, unspecified type; Hypercholesteremia; Obesity (BMI 30-39.9); Current smoker Discharge Disposition: Home 12/30/2024 Travel 2024 Scanned Document [facility] [address] [place] [address] Scanning, Generic Provider 11/23/2024 Scanned Document [facility] [address] [place] [address] Scanning, Generic Provider from Last 3 Months [...] Description 08/17/2025 3:10 PM EDT Office Visit [facility] [address] [facility] [address] [place] [address] Roland Faust MD [address] [facility] [address] [place] [address] Health Maintenance Due Date Last [...] DUAL COMPLETE MEDICAID DUAL COMPLETE Care Teams Drapery Installer Relationship Specialty Start Date End Date Shantel Norton APRN-JAYSON [address] [place] [address] PCP - General Family Medicine 12/30/24
--- OUTSIDE RECORDS SUMMARY | 2025-01-21 08:31 | XMS_ITS | Encounter Summary ---
Author Organization [facility] Address [address] [place] [address] Phone Care Team Providers Care Early Morning Babysitter Name Role Phone Sandra Lewis DO Primary Care Provider [phone] Shantel Norton TARRING MACHINE OPERATOR-BURNISHER AND BUMPER Primary Care Pro vider Encounter Details Date Type Department Care Team (Late st Contact Info) Description 09/14/2023 Scanned Document [facility] [address] [place] [address] Scanning, Generic Provider Social History Tobacco Use [...] Description 08/17/2025 3:10 PM EDT Office [facility] 703 [facility] [address] [place] [address] Roland Faust MD 703 [facility] 2, [address] [place] [address] documented as of this encounter Visit Diagnoses Not on filedocumented in this encounter Care Teams Early Morning Babysitter Relationship Specialty Start Date End Date Sandra Lewis DO [address] [facility] [place] [address] PCP - General Family Medicine 09/25/23 12/29/24 Shantel Norton APRN-BURNISHER AND BUMPER [address] [place] [address] PCP - General Family Medicine 12/30/24 documented as of this encounter
--- NOTE | 2025-01-21 08:32 | US_ITS ---
[address] [address] Patient Name: TAYE MRACOS MRN: [id number] date: 1955 Sex: F Assigned Patient Location: US Current Patient Location: Accession/Order Number: [id number] Exam Date: 01/21/2025 08:34 Report Date: 01/21/2025 09:45 At the request of: ROSA FAITH Procedure: US abdomen limited LIMITED ABDOMINAL ULTRASOUND: CLINICAL HISTORY: Lesion Of Spleen D73.89 COMPARISON: CT abdomen and pelvis 07/06/2024 TECHNIQUE: Grayscale and color Doppler images of the spleen were obtained. FINDINGS: The spleen appears normal in size measuring 10.6 cm with a echogenic area present measuring 3.2 x 3.5 x 3.1 cm. This area is occult on the CT study performed without contrast. No free fluid is present. US/US abdomen limited IMPRESSION: ECHOGENIC AREA INVOLVING THE SPLEEN MEASURING 3.2 X 3.5 X 3.[address] BY NONCONTRAST CT[address] COMPLETE EVALUATION WITH MULTIPHASIC CT OR MRI WITH AND WITHOUT IV CONTRAST IS RECOMMENDED.. Impression dictated by: Edgar Segovia Jr., D.O. 01/21/2025 9:45 AM Dictation Location: [place] [address] Electronically authenticated by: [id number] Y Date: 01/21/2025 09:45
--- OUTSIDE RECORDS SUMMARY | 2025-01-21 08:32 | XMS_ITS | Encounter Summary ---
Author Organization [facility] Address [address] [place] [address] Phone Care Team Providers Care Sleep Lab Technician Name Role Phone Sandra Lewis DO Primary Care Provider [phone] Shantel Norton QUEEN PRODUCER-HOSPITAL NURSE Primary Care Pro vider Encounter Details Date Type Department Care Team (Late st Contact Info) Description 04/30/2024 Scanned Document [facility] [address] [place] [address] Scanning, Generic Provider Social History Tobacco Use [...] Description 08/17/2025 3:10 PM EDT Office Visit [place] [id number] [facility] [address] [place] [address] Roland Faust MD 703 [facility] 2, [address] [place] [address] documented as of this encounter Visit Diagnoses Not on filedocumented in this encounter Additional Health Concerns Assessment Noted Time A fall risk assessment has been complete d for the patient 12/16/2023 10:41 AM EDT documented as of this encounter Care Teams Sleep Lab Technician Relationship Specialty Start Date End Date Sandra Lewis DO 25[address] [facility] [place] [address] PCP - General Family Medicine 09/25/23 12/29/24 Shantel Norton, NITZA-HOSPITAL NURSE 1[address] [facility] [place] [address] PCP - General Family Medicine 12/30/24 documented as of this encounter
--- OUTSIDE RECORDS SUMMARY | 2025-01-21 08:32 | XMS_ITS | Encounter Summary ---
Author Organization [facility] Address [address] [place] [address] Care Team Providers Care Express Clerk Name Role Phone Sandra Lewis DO Primary Care Provider [phone] Encounter Details Date Type Department Care Team (Late st Contact Info) Description 01/19/2025 Bamboo flowsheet [facility] [address] [facility] [address] Luan Kincaid MD [address] [facility] [address] [place] [id number] Social History Tobacco Use Types Packs/Day Years [...] Office Visit [facility] [address] [place] [address] Nereida Castro MD [address] [facility] [address] [place] [address] 07/20/2025 4:00 PM EDT Office Visit [facility] [address] [facility] [place] [address] Luan Kincaid MD [address]75 [facility] [address] [place], [place] [phone] documented as of this encounter Visit Diagnoses Not on filedocumented in this encounter Care Teams Express Clerk Relationship Specialty Start Date End Date Sandra Lewis DO [address] [facility] [place] [address] PCP - General Family Medicine 10/15/24 documented as of this encounter
--- OUTSIDE RECORDS SUMMARY | 2025-01-21 08:32 | XMS_ITS | Encounter Summary ---
Author Organization [facility] Address [address] [place] [address] Phone Care Team Providers Care Manager Patient Name Role Phone Sandra Lewis DO Primary Care Provider [phone] Shantel Norton SUPERVISOR COATING-COMPENSATION ANALYST Primary Care Pro vider Encounter Details Date Type Department Care Team (Late st Contact Info) Description 11/10/2023 Scanned Document [facility] [address] [place] [address] Scanning, Generic Provider Social History Tobacco Use [...] PM EDT documented as of this encounter Functional Status * Question Answer Date of Assessment Author BP 108/70 11/13/2023 1:54 PM EDT Norma Cruz CMA Pulse 87 11/13/2023 1:54 PM EDT Norma Cruz CMA * Communicable Disease Screening Question Answer Date of Assessment Author Do you have any of the following new or worsening symptoms? None of these 11/13/2023 1:37 PM EDT Tori Kelly documented as of this encounter Plan of Treatment Upcoming Encounters Date Type Department Care Team (Late st Contact Info) Description 08/17/2025 3:10 PM EDT Office Visit [facility] [place] 703 [facility] [address] [place] [address] Roland Faust MD 703 [facility] [address], [address] [place] [address] documented as of this encounter Procedures Procedure [...] as of this encounter Care Teams Manager Patient Relationship Specialty Start Date End Date Sandra Lewis DO 2520 [place] [address] PCP - General Family Medicine 09/25/23 12/29/24 Shantel Norton APRN-COMPENSATION ANALYST 1[address] [facility] [place] [address] PCP - General Family Medicine 12/30/24 documented as of this encounter
--- OUTSIDE RECORDS SUMMARY | 2025-01-21 08:32 | XMS_ITS | Encounter Summary ---
Author Organization [facility] Address [address] [place] [address] Phone Care Team Providers Care Director Of Revenue Cycle Management Name Role Phone Sandra Lewis DO Primary Care Provider [phone] Shantel Norton WHEEL FITTER-CADET DECK Primary Care Pro vider Encounter Details Date Type Department Care Team (Late st Contact Info) Description 11/09/2023 Scanned Document [facility] [address] [place] [address] Scanning, Generic Provider Social History Tobacco Use [...] Description 08/17/2025 3:10 PM EDT Office Visit [place] 398963 [facility] [address] [place] [address] Roland Faust MD 703 [facility] 2, [address] [place] [address] documented as of this encounter Visit Diagnoses Not on filedocumented in this encounter Additional Health Concerns Assessment Noted Time A fall risk assessment has been complete d for the patient 10/07/2023 9:51 AM EDT documented as of this encounter Care Teams Director Of Revenue Cycle Management Relationship Specialty Start Date End Date Sandra Lewis DO 2520 [facility] [place] [address] PCP - General Family Medicine 09/25/23 12/29/24 hSantel Norton, NITZA-CADET DECK 1255 [facility] [place] [address] PCP - General Family Medicine 12/30/24 documented as of this encounter
--- OUTSIDE RECORDS SUMMARY | 2025-01-21 08:32 | XMS_ITS | Encounter Summary ---
Author Organization [facility] Address [address] [place] [address] Phone Care Team Providers Care Table Worker Name Role Phone Sandra Lewis DO Primary Care Provider [phone] Shantel Norton CORPORATION LAWYER-REALTY LOAN SPECIALIST Primary Care Pro vider Encounter Details Date Type Department Care Team (Late Contact Info) Description 01/06/2024 Scanned Document [facility] [address] [place] [address] Scanning, Generic Provider Social History Tobacco Use [...] Description 08/17/2025 3:10 PM EDT Office Visit [facility] 703 [facility] [address] [place] [address] Roland Faust MD 703 [facility] 2, [address] [place] [address] Scheduled Orders Name Type Priority Associated Diagnoses Orde r Schedule Ultrasound- OnBase Scan Imaging O rdered: 01/06/2024 documented as of this encounter Visit Diagnoses Not on filedocumented in this encounter Additional Health Concerns Assessment Noted Time A fall risk assessment has been complete d for the patient 12/16/2023 10:41 AM EDT documented as of this encounter Care Teams Table Worker Relationship Specialty Start Date End Date Sandra Lewis DO [address] [place] [address] PCP - General Family Medicine 09/25/23 12/29/24 Shantel Norton APRN-REALTY LOAN SPECIALIST [address] [place] [address] PCP - General Family Medicine 12/30/24 documented as of this encounter
--- OUTSIDE RECORDS SUMMARY | 2025-01-21 08:32 | XMS_ITS | Encounter Summary ---
Author Organization [facility] Address [address] [place] [address] Phone Care Team Providers Care Program Eligibility Specialist Name Role Phone Sandra Lewis DO Primary Care Provider [phone] Shantel Norton ENGINEERING INTERN-SCHOOL BUS TECHNICIAN Primary Care Pro vider Encounter Details Date Type Department Care Team (Late st Contact Info) Description 11/12/2023 Scanned Document [facility] [address] [place] [address] Scanning, Generic Provider Social History Tobacco Use [...] Description 08/17/2025 3:10 PM EDT Office Visit [facility] 703 [facility] [address] [place] [address] Roland Faust MD [facility] [facility] [address] [place] [address] documented as of this encounter Visit Diagnoses Not on filedocumented in this encounter Additional Health Concerns Assessment Noted Time A fall risk assessment has been complete d for the patient 10/07/2023 9:51 AM EDT documented as of this encounter Care Teams Program Eligibility Specialist Relationship Specialty Start Date End Date Sandra Lewis DO [address] [facility] [place] [address] PCP - General Family Medicine 09/25/23 12/29/24 Shantel Norton APRN-SCHOOL BUS TECHNICIAN 1255 [place] [address] PCP - General Family Medicine 12/30/24 documented as of this encounter
--- OUTSIDE RECORDS SUMMARY | 2025-01-21 08:32 | XMS_ITS | Encounter Summary ---
Author Organization [facility] Address [address] [place] [address] Phone Care Team Providers Care Ecological Economist Name Role Phone Sandra Lewis DO Primary Care Provider [phone] Shantel Norton MASSOTHERAPIST-AUDIO EXPERIENCE EXPERT Primary Care Pro vider Encounter Details Date Type Department Care Team (Late st Contact Info) Description 09/13/2023 Scanned Document [facility] [address] [place] [address] Scanning, Generic Provider Social History Tobacco Use [...] Description 08/17/2025 3:10 PM EDT Office Visit [facility] 703 [facility] [address] [place] [address] Roland Faust MD 703 [facility] 2, [address] [place] [address] documented as of this encounter Visit Diagnoses Not on filedocumented in this encounter Care Teams Ecological Economist Relationship Specialty Start Date End Date Sandra Lewis DO [address] [facility] [place] [address] PCP - General Family Medicine 09/25/23 12/29/24 Shantel Norton APRN-AUDIO EXPERIENCE EXPERT [address] [place] [address] PCP - General Family Medicine 12/30/24 documented as of this encounter
--- OUTSIDE RECORDS SUMMARY | 2025-01-21 08:32 | XMS_ITS | Encounter Summary ---
Author Organization [facility] Address [address] [place] [address] Phone Care Team Providers Care Buffing Turner And Counter Name Role Phone Sandra Lewis DO Primary Care Provider [phone] Shantel Norton MARKETING SUPPORT COORDINATOR-CURATOR OF PHOTOGRAPHY AND PRINTS Primary Care Pro vider Encounter Details Date Type Department Care Team (Late st Contact Info) Description 09/12/2023 Scanned Document [facility] [address] [place] [address] Scanning, Generic Provider Social History Tobacco Use [...] Description 08/17/2025 3:10 PM EDT Office Visit [facility] 703 [facility] [address] [place] [address] Roland Faust MD 703 [facility] 2, [address] [place] [address] documented as of this encounter [...] on filedocumented in this encounter Care Teams Buffing Turner And Counter Relationship Specialty Start Date End Date Sandra Lewis DO 2520 [facility] [place] [address] PCP - General Family Medicine 09/25/23 12/29/24 Shantel Norton APRN-CURATOR OF PHOTOGRAPHY AND PRINTS [address] [place] [address] PCP - General Family Medicine 12/30/24 documented as of this encounter
--- OUTSIDE RECORDS SUMMARY | 2025-01-21 08:32 | XMS_ITS | Encounter Summary ---
Author Organization [facility] Address [address] [place] [address] Phone Care Team Providers Care Middle School Football Coach Name Role Phone Sandra Lewis DO Primary Care Provider [phone] Shantel Norton SECURITY SERVICES MANAGER-RN LABOR DELIVERY Primary Care Pro vider Encounter Details Date Type Department Care Team (Late st Contact Info) Description 04/28/2024 Scanned Document [facility] [address] [place] [address] Scanning, Generic Provider Social History Tobacco Use [...] Description 08/17/2025 3:10 PM EDT Office Visit [facility] 703 [facility] [address] [place] [address] Roland Faust MD 703 [facility] 2, [address] [place] [address] documented as of this encounter [...] documented as of this encounter Care Teams Middle School Football Coach Relationship Specialty Start Date End Date Sandra Lewis DO 2520 [place] [address] PCP - General Family Medicine 09/25/23 12/29/24 Shantel Norton APRN-RN LABOR DELIVERY 1255 [facility] [place] [address] PCP - General Family Medicine 12/30/24 documented as of this encounter
--- OUTSIDE RECORDS SUMMARY | 2025-01-21 08:32 | XMS_ITS | Encounter Summary ---
Author Organization [facility] Address [address] [place] [address] Phone Care Team Providers Care Olive Grader Name Role Phone Sandra Lewis DO Primary Care Provider [phone] Shantel Norton WEB SITE DESIGNER-SHARED SERVICES AND OUTSOURCING MANAGER Primary Care Pro vider Encounter Details Date Type Department Care Team (Late st Contact Info) Description 11/11/2023 Scanned Document [facility] [address] [place] [id number] Scanning, Generic Provider Social History Tobacco Use [...] Description 08/17/2025 3:10 PM EDT Office Visit [facility] [address] [facility] [address] [place] [phone] Roland Faust MD [address]03 [facility] [place] [address] documented as of this encounter Visit Diagnoses Not on filedocumented in this encounter Additional Health Concerns Assessment Noted Time A fall risk assessment has been complete d for the patient 10/07/2023 9:51 AM EDT documented as of this encounter Care Teams Olive Grader Relationship Specialty Start Date End Date Sandra Lewis DO [address] [facility] [place] [address] PCP - General Family Medicine 09/25/23 12/29/24 Shantel Norton APRN-SHARED SERVICES AND OUTSOURCING MANAGER [address] [facility] [place] [address] PCP - General Family Medicine 12/30/24 documented as of this encounter
--- OUTSIDE RECORDS SUMMARY | 2025-01-21 08:32 | XMS_ITS | Encounter Summary ---
Author Organization [facility] Address [address] [place] [address] Phone Care Team Providers Care Data Acquisition Technician Name Role Phone Sandra Lewis DO Primary Care Provider [phone] Shantel Norton YELLOW PAGES SPACE SALESPERSON-STONE GANG SAWYER Primary Care Pro vider Encounter Details Date Type Department Care Team (Late Contact Info) Description 07/22/2024 Scanned Document [facility] [address] [place] [phone] Scanning, Generic Provider Social History Tobacco Use [...] Description 08/17/2025 3:10 PM EDT Office Visit [facility] 7[address] [facility] [address] [place] [address] Roland Faust MD 703 [facility] [address], [address] [place] [address] Scheduled Orders Name Type Priority Associated Diagnoses Orde r Schedule Ultrasound- OnBase Scan Imaging O rdered: 07/22/2024 documented as of this encounter Visit Diagnoses Not on filedocumented in this encounter Additional Health Concerns Assessment Noted Time A fall risk assessment has been complete d for the patient 06/26/2024 9:48 AM EST documented as of this encounter Care Teams Data Acquisition Technician Relationship Specialty Start Date End Date Sandra Lewis DO [address] [place] [address] PCP - General Family Medicine 09/25/23 12/29/24 Shantel Norton APRN-STONE GANG SAWYER [address] [place] [address] PCP - General Family Medicine 12/30/24 documented as of this encounter
--- OUTSIDE RECORDS SUMMARY | 2025-01-21 08:32 | XMS_ITS | Encounter Summary ---
Author Organization [facility] Address [address] [place] [address] Phone Care Team Providers Care Ekg Monitor Tech Name Role Phone Sandra Lewis DO Primary Care Provider [phone] Shantel Norton BRUSH CLEARER SURVEYING-SURPLUS PROPERTY DISPOSAL AGENT Primary Care Pro vider Encounter Details Date Type Department Care Team (Late st Contact Info) Description 11/23/2024 Scanned Document [facility] [address] [place] [address] Scanning, Generic Provider Social History Tobacco Use [...] Description 08/17/2025 3:10 PM EDT Office Visit [place] [address] [facility] [address] [place] [address] Roland Faust MD 703 [facility] [address], [address] [place] [address] documented as of this encounter Visit Diagnoses Not on filedocumented in this encounter Additional Health Concerns Assessment Noted Time A fall risk assessment has been complete d for the patient 06/26/2024 9:48 AM EST documented as of this encounter Care Teams Ekg Monitor Tech Relationship Specialty Start Date End Date Sandra Lewis DO [address] [facility] [place] [address] PCP - General Family Medicine 09/25/23 12/29/24 Shantel Norton, NITZA-SURPLUS PROPERTY DISPOSAL AGENT [address] [facility] [place] [address] PCP - General Family Medicine 12/30/24 documented as of this encounter
--- OUTSIDE RECORDS SUMMARY | 2025-01-21 08:32 | XMS_ITS | Encounter Summary ---
Author Organization [facility] Address [address] [place] [address] Phone Care Team Providers Care Hammer Adjuster Name Role Phone Sandra Lewis DO Primary Care Provider [phone] Shantel Norton HEATING REPAIR TECHNICIAN-METER AND REGULATOR SHOP SUPERVISOR Primary Care Pro vider Encounter Details Date Type Department Care Team (Late st Contact Info) Description 2024 Scanned Document [facility] [address] [place] [address] Scanning, Generic Provider Social History Tobacco Use [...] Description 08/17/2025 3:10 PM EDT Office Visit [place] [address] [facility] [address] [place] [address] Roland Faust MD 703 [facility] [address], [address] [place] [address] documented as of this encounter Visit Diagnoses Not on filedocumented in this encounter Additional Health Concerns Assessment Noted Time A fall risk assessment has been complete d for the patient 06/26/2024 9:48 AM EST documented as of this encounter Care Teams Hammer Adjuster Relationship Specialty Start Date End Date Sandra Lewis DO [address] [facility] [place] [address] PCP - General Family Medicine 09/25/23 12/29/24 Shantel Norton, NITZA-METER AND REGULATOR SHOP SUPERVISOR [address] [facility] [place] [address] PCP - General Family Medicine 12/30/24 documented as of this encounter
--- OUTSIDE RECORDS SUMMARY | 2025-01-21 08:32 | XMS_ITS | Encounter Summary ---
Author Organization [facility] Address [address] [place] [address] Care Team Providers Care Cot Assembler Name Role Phone Sandra Lewis DO Primary Care Provider [phone] Encounter Details Date Type Department Care Team (Latest Contact Info) Description 01/19/2025 Travel Social History Tobacco Use Types Packs/Day [...] NUNN [address] [place] [address] Nereida Castro MD [address] [place] [address] 07/20/2025 4:00 PM EDT Office Visit [facility] [address] [place] [address] Luan Kincaid MD [address] [facility] [address] [address] documented as of this encounter Visit Diagnoses Not on filedocumented in this encounter Care Teams Cot Assembler Relationship Specialty Start Date End Date Sandra Lewis DO [address] [facility] [place] [address] PCP - General Family Medicine 10/15/24 documented as of this encounter
--- OUTSIDE RECORDS SUMMARY | 2025-01-21 08:32 | XMS_ITS | Encounter Summary ---
Author Organization [facility] Address [address] [place] [address] Phone Care Team Providers Care Painter Rough Name Role Phone Sandra Lewis DO Primary Care Provider [phone] Shantel Norton APRN-SPEECH LANGUAGE PATHOLOGIST Primary Care Pro vider Encounter Details Date Type Department Care Team (Late st Contact Info) Description 12/02/2023 Scanned Document [facility] [address] [place] [phone] Scanning, Generic Provider Social History Tobacco Use [...] Question Answer Date of Assessment Author BP 98/58 12/02/2023 2:43 PM EDT Rivka Lopez LPN Pulse 59 12/02/2023 2:43 PM EDT Rivka Lopez LPN * Communicable Disease Screening Question Answer Date of Assessment Author Do you have any of the following new or worsening symptoms? None of these 12/02/2023 2:18 PM EDT Yenni Shepard MA documented as of this encounter Plan of Treatment Upcoming Encounters Date Type Department Care Team (Late st Contact Info) Description 08/17/2025 3:10 PM EDT Office Visit [facility] 703 [facility] [address] [place] [address] Roland Faust MD 703 [facility] [address], [address] [place] [address] documented as of this encounter Visit Diagnoses Not on filedocumented in this encounter Additional Health Concerns Assessment Noted Time A fall risk assessment has been complete d for the patient 11/13/2023 1:54 PM EDT documented as of this encounter Care Teams Painter Rough Relationship Specialty Start Date End Date Sandra Lewis DO [address] [facility] [place] [address] PCP - General Family Medicine 09/25/23 12/29/24 Shantel Norton APRN-SPEECH LANGUAGE PATHOLOGIST [address] [facility] [place] [address] PCP - General Family Medicine 12/30/24 documented as of this encounter
--- OUTSIDE RECORDS SUMMARY | 2025-01-21 08:32 | XMS_ITS | Encounter Summary ---
Author Organization [facility] Address [address] [place] [address] Phone Care Team Providers Care Php Architect Name Role Phone Sandra Lewis DO Primary Care Provider [phone] Shantel Norton LABOR RELATIONS WORKER-HEAD STOCK OPERATOR Primary Care Pro vider Encounter Details Date Type Department Care Team (Late Contact Info) Description 2023 Scanned Document [facility] [address] [place] [address] Scanning, Generic Provider Social History Tobacco Use [...] 3:10 PM EDT Office Visit [place] [address] [facility] [address] [place] [address] Roland Faust MD 703 [facility] [address], [address] [place] [address] documented as of this encounter Visit Diagnoses Not on filedocumented in this encounter Additional Health Concerns Assessment Noted Time A fall risk assessment has been complete d for the patient 11/13/2023 1:54 PM EDT documented as of this encounter Care Teams Php Architect Relationship Specialty Start Date End Date Sandra Lewis DO [address] [place] [address] PCP - General Family Medicine 09/25/23 12/29/24 Shantel Norton APRN-HEAD STOCK OPERATOR [address] [place] [address] PCP - General Family Medicine 12/30/24 documented as of this encounter
--- OUTSIDE RECORDS SUMMARY | 2025-01-21 08:35 | XMS_ITS | CCD ---
Author Organization [facility] CliniSyde Care Team Providers Care School Bus Monitor Name Role Phone MATTHEW VOSS MD Unavailable Unavailable UNASSIGNED, DOCTOR Unavailable Unavailable SUKHWINDER, ELOISA Unavailable Unavailable SUKHWINDER, ELOISA Unavailable Unavailable SKUHWINDER, ELOISA Unavailable Unavailable JONAS YODER Unavailable Unavailab Tray Stcokton Unavailable Angelique Russell Unavailable Crispin Looney Unavailable Ruben Hahn Unavailable DO Tray Randle Emergency Provider Unavai MD Arleen Ralph Admit Provider DO Walter Montgomery Other Provider MD Teresa Strong Other Provider MD Wilmer Vance Attending Provider DO Jonas Yoder Primary Care Provider NO FAMILY, PHYSICIAN Primary Care Provider Unava ilable DO Rl Villavicencio Emergency Provider [phone] Francesca Santos Attending Unavailable ARLEEN STEPHEN Referring Unavailable Teresa Strong Attending Unavailable ARLEEN STEPHEN Referring Unavailable Teresa Strong Attending Unavailable Teresa Strong Attending Unavailable Sandra Keita Unavailable Tolu Salinas Unavailable DO Sandra Keita Primary Care Provider [phone] DO Sandra Keita Attending Provider Reyna Dallas Unavailable Brayden Noble Unavailable DO Jonas Yoder Primary Care Provider NITZA Russell Attending Provider Keita, Sandra A Primary Care Provider Keita, Sandra A Attending Provider Keita, DO Sandra A Primary Care Provider Keita, Sandra A Attending Provider NITZA Russell Attending Provider DO Edgar Valenzuela Emergency Provider [phone] MD Elva Florian Admit Provider MD Elva Florian Attending Provider BRENDA Pazher Other Provider Unavailable DO Elly Yoo Other Provider MD Ric Lamar Other Provider MD Jonas Ch Other Provider MD Roland Faust Other Provider MD Manjit Barbosa Other Provider NITZA Fritz Other Provider MD Stephanie Stoll Other Provider MD Jann Kaplan Other Provider MD Cara Tenorio Other Provider Fidel [facility] Elizabeth Samayoa Other Provider MD Ashley Cheatham [...] Isidro Other Provider NITZA Calvo Other Provider [phone] CHERYL Medina Other Provider GRADY Ibrahim-Vamsi Cartagena Other Provider MD Chaka Frye Attending Provider DO Rl Villavicencio Emergency Provider [phone] DO Jluis Campos Admit Provider [phone] Saranya Wright Other Provider Unavailable Fay, PhD Cash Other Provider [phone] DO Jelly Tuttle Other Provider MD John Murillo Other Provider DO Lit Clark Other Provider Dar [facility] Dayana Other Provider DO Roque Isidro Other Provider NITZA Calvo Other Provider [phone] CHERYL Medina Other Provider GRADY Ibrahim-Vamsi Cartagena Other Provider MD Chaka Frye Attending Provider NITZA Salinas Referring Provider [phone] Keita, DO [...] Emergency Provider Jori Hearn DO Admit Provider [phone] Jori Hearn DO Attending Provider Priscilla Lang MD Attending Provider [phone] Lit Clark DO Other Provider Keita DO, Sandra A Primary Care Provider Keita DO, Sandra A Attending Provider Keita DO, Sandra A Primary Care Provider [phone] Roland Faust MD Attending Provider Angelqiue Russell APRN Other Provider Nataliya Jane APRN Attending Provider Oz Kincaid MD Referring Provider [phone] Keita DO, Sandra A Primary Care Provider Rl Villavicencio DO Emergency Provider Wesley Villafuerte PA-C Emergency Provider Jori Hearn DO Admit Provider Priscilla Lang MD Attending Provider Amber DO Lit Zenon Other Provider Keita DO, Sandra A Attending Provider Roland Faust MD Attending Provider Angelique Russell APRN Other Provider Nataliya Jane APRN Attending Provider Oz Kincaid MD Referring Provider [phone] Deneen Frost PA-C Attending Provider Keita DO, Sandra A Primary Care Provider Keita DO, Sandra A Primary Care Provider Manjit Gleason MD Attending Provider Keita DO, Sandra A Primary Care Provider Keita DO, Sandra Primary Care Provider Keita DO, Sandra Primary Care Provider Monico VARGAS, Andrius Christinaytyanet Attending Unavailable Monico VARGAS, Andrius Vytautjing Attending Unavailable Keita DO, Sandra A Primary Care Provider Angelique Russell APRN Attending Provider Keita DO, Sandra A Attending Provider Edgar Eden DO Attending Provider Rosibel VARGAS, Manjit Other Provider Samm Medina MD Attending Provider Keita DO, Sandra A Referring Provider NO FAMILY, PHYSICIAN Primary Care Provider Karl Vazquez DPM Attending Provider [phone] Shantel Norton APRN Primary Care Provider Shantel Norton APRN Attending Provider Cierra GODDARD-RECORDS MANAGEMENT ASSISTANT, Shantel A Primary Care Pro vider TRABOULSSI, MOURHAF Attending Unavailable TRABOULSSI, MOURHAF Referring Unavailable CIERRA SHANTEL A Primary Care Unavailab le TRABOULSSI, MOURHAF Attending Unavailable TRABOULSSI, MOURHAF Referring Unavailable KEITA, SANDRA A Primary Care Unavailable TRABOULSSI, MOURHAF Attending Unavailable JONAS CH Referring Unavailable KEITA, SANDRA A Primary Care Unavailable Keita, Sandra A Primary Care Unavailable Keita, Sandra A Attending Unavailable Keita, Sandra A Admitting Unavailable Keita, Sandra A Primary Care Unavailable Tuekta, Rl Yarbrough Admitting Unavailable TuRl dahs Attending Unavailable Oz Kincaid Referring Unavailable Keita, Sandra A Primary Care Unavailable Nataliya Jane Admitting Unavail able Nataliya Jane Attending Unavail able Karl Fritz Admitting Unavailable Karl Fritz Attending Unavailable Traboulssi, Mourhaf Admitting Unavailable Traboulssi, Mourhaf Attending Unavailable Keita, Sandra A Primary Care Unavailable Samm Medina Admitting Unavailable Samm Medina Attending Unavailable Ashleysuzette Shantel Primary Care Unavailable Keita, Sandra A Primary Care Unavailable Tray Nava Admitting Unavailabl Tray Rankin Attending Unavailabl e Karl Fritz Admitting Unavailable [...] Frost Attending Unavailable Deneen Frost Admitting Unavailable Samm Medina MD Attending Provider Samm Medina MD. Other Provider [phone] Angelique Russell APRN Attending Provider OZ KINCAID Attending Unavailable OZ KINCAID Attending [...] Translations: [sulfamethoxazol e] Drug Allergy 3 Unknown [facility] Repository (17 sources) Sulfonamides (Antibiotic); Translations: [SULFA (SULFONAMIDE ANTIBIOTICS)] Allergy to substance 9 GI intolerance, Unknown, Nausea/vomiting [facility] (20 sources) Sulfonamides (Antibiotic) Drug Allergy 9 GI intolerance, Unknown [facility] (1 source) pioglitazone Drug Allergy 5 leg edema [facility] Medications Current Medications Medication Drug Class(es) Dates [...] Gluc Sensor (FreeStyle Brent 14 Day Sensor) [facility] [place] sources[place] Start: 12-21-2022 Continuous Blood Gluc Sensor (FreeStyle Brent 14 Day Sensor) [facility] apply 1 SENSOR as directed every 14 [...] 12, 2023 4:43pm take 1 capsule by [facility] twice daily docusate sodium (Colace) [...] Cotransporter 2 Inhibitor Start: 02-10-20 End: 04-28-20 24 take 1 tablet by mouth once daily Empagliflozin (Jardiance) 25 mg tablet Active 25 MG PO Daily April 28, 2024 1:58pm Complies with drug therapy [id number] 0.3 ml EPINEPHrine 1 mg/ml auto-injector (4 [...] 0 .ROUTE .COMPLEX 90 May 11, 2024 8:37am TAKE 1 TABLET [...] Start: 08-25-2024 take 1 tablet by umer once daily Start: 08-25-2024 take 1 tablet by umer once daily L. acidophilus/Bifid. animalis Active 1 [...] hydrochloride 10 mg oral tablet (20 sources) G-rgvcbi-Z-aspartate Receptor Antagonist Start: 07-21-2024 memantine (Namenda) 10 MG tablet Indications: Cognitive decline 1 tab BID 60 tablet 5 07/21/2024 Active Start: 04-28-2024 End: 07-03-2024 take 1 tablet [...] with drug therapy Start: 02-09-2021 End: 08-26-2023 metFORMIN (Glucophage) 500 [...] 09-30-2023 Miscellaneous Medical Supply Active 0 .Route September 30, 2023 8:33am As directed Start: [...] mouth at bedtime 30 capsule 5 07/21/2024 Active Start: 06-18-2023 End: 11-18-2023 take 100 mg by mouth once daily Nortriptyline Disconti nued 100 MG PO Daily 180 October 16, 2023 7:37am November 18, 2023 2:05pm Start: 01-04-2023 End: 02-25-2024 take 1 capsule by mouth once daily Nortriptyline 50 mg capsule Discontinued 50 MG PO Daily 90 November 18, 2023 2:01pm February 03, [...] 18, 2023 8:10pm take 1 capsule by [facility] every twenty-four hours Nortriptyline [...] mouth once daily Start: 01-02-2023 End: 12-14-2024 omeprazole (PriLOSEC) [address] capsule 01/02/2023 Active Start: [...] mg tablet Active 50 MG PO Daily January 12, 2025 2:35pm Complies with drug therapy Start: 12-15-2024 End: 01-12-2025 take 1 tablet by mouth once daily Sertraline 25 mg tablet Discontinued 25 MG PO Daily January 11, 2025 11:49am January 12, 2025 2:36pm simvastatin 20 mg oral tablet (20 sources) HMG-CoA Reductase Inhibitor Start: 04-30-2024 End: 07-24-2024 take 2 tablets by mouth once daily Simvastatin 20 mg tablet Active 40 MG PO Daily 180 July 24, 2024 12:37pm Complies with drug therapy Start: 12-04-2022 take 1 tablet by umer at bedtime simvastatin (Zocor) 40 MG tablet [...] Start: 11-14-2023 take 1 capsule by mo akh once daily Cyanocobalamin (Vitamin B-12) 1,000 mcg [...] 17, 2021 5:59am Admelog (9 sources) Admelog Not-[facility] Admelog Active amiodarone hydrochloride 200 mg oral [...] Apr, Not-Taking doxycycline hyclate 100 mg oral tablet (20 [...] 07, 2024 1:00am August 20, 2024 10:11am pen needle, diabetic (Sure-Fine [place]) (20 sources) Start: 06-12-2023 End: 01-05-2025 pen needle, diabetic (Sure-Fine [place]) Discontinued .Route June 12, 2023 1:00am January 05, 2025 1:32pm Start: 06-12-2023 pen needle, di abetic (Sure-Fine [place]) Active .Route June 12, 2023 1:00am Start: 06-12-2023 pen needle, di abetic (Sure-Fine [place]) Active .Route June 12, 2023 12:00am Start: 06-12-2023 pen needle, di abetic (Sure-Fine [place]) Active .ROUTE June 12, 2023 12:00am pioglitazone [...] Start: 08-09-2022 take 1 capsule by mo [facility] every twenty-four hours Temazepam 30 MG 1 capsule at bedtime as needed Orally Once a day for 30 days Jul, Active Start: 07-04-2022 take 1 capsule by mo ut every twenty-four hours Temazepam 30 MG 1 capsule at bedtime as needed Orally Once a day for 30 days Jun, Active Start: 06-04-2022 take 1 capsule by mo ut every [...] deficiency, unspecified] Chronic Open wounds of extremities (20 sources) Injury of foot; Translations: [Unspecified open wound, unspecified foot, initial encounter] 02-03-2024 Episodic Other acquired deformities (2 sources) Unspecified acquired deformity of right lower leg; Translations: [Unspecified deformity of ankle and foot, acquired] 10-26-2024 Episodic Other aftercare (20 sources) Long-term current use of insulin; 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: [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] 06-12-2023 Episodic Other aftercare (12 sources) alf (current) use of insulin; Translations: [Long-term (current) [...] unspecified] 05-07-2024 Episodic Other connective tissue disease (4 sources) [...] 07-03-2021 Resolved: 07-03-2021 Chronic Residual codes; unclassified (2 sources) Obstructive [...] / F17.200(ICD-10) Onset: 05-16-2017 Unclassified (1 source) 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 / Z79.82(ICD-10) Onset: 05-16-2017 Unclassified (1 source) alf (current) use of oral hypoglycemic drugs / [...] Onset: 03-27-2021 Resolved: 01-09-2022 Episodic Other aftercare (7 sources) Taking high risk medication; Translations: [Other residential (current) drug therapy] Onset: 11-13-2023 Resolved: 12-30-2024 [...] 10-06-2024 10-06-2024 Episodic Other connective tissue disease (1 [...] 01-05-2025 HbA1c (Bld) [Mass fraction] 8.6 % [facility] No Panel InformationOrdered By: Angelique Russell on 01-05-2025 Bedside Glucose 259 [facility] MR LUMBAR SPINE WO CONTRASTo n 12-31-2024 [...] Nom (Unsp spec) Klebsiella oxytoca Abnormal [facility] Bacteria identified Aer cx Nom (Unsp spec) Staphylococcus aureus Abnormal [facility] Superficial Wound Cultureon 11-16-2024 Superficial Wound [...] RESISTANT TO ALL B-LACTAM DRUGS. PERFORMED BY: [facility] [place] [address] PATHOLOGIST [employer]ISTERIAL DISTRICT JUDGE BENNIE HIGGINBOTHAM M.D. Normal [facility] Comment on above: Performed By: #### L IPID, BMP #### [facility] [address] [id number] [facility] XR Foot - right 3 [facility] [...] metatarsal head right 1st metatarsal. [facility] Radiology Study observation (narrative) [facility] Capillary blood glucose steve urement by glucometer (mass/volume)Ordered By: Manjit Gleason on 09-10-2024 Glucose [Mass/Vol] 234 mg/dL Normal [facility] Comment on above: Random Glucose Refer ence Range is dependent on time and content of last meal. Glucose of more than 200 mg/dL in a nonstressed, ambulatory subject supports the diagnosis of Diabetes Mellitus. Result Comment: [facility] Glucose Reference Range is dependent on time and content of last meal. Glucose of more than 200 mg/dL in a nonstressed, ambulatory subject supports the diagnosis of Diabetes Mellitus. Performed By: #### C MP, MG, PHOS, CBC #### [facility] [address] [id number] [place] Glucose Glucometer (BldC) [M ass/Vol]Ordered By: Manjit Gleason on 09-10-2024 Glucose [Mass/Vol] Capillary blood gluc ose measurement by glucometer (mass/volume) [facility] Comment on above: Random Glucose Refer ence Range is dependent on time and content of last meal. Glucose of more than 200 mg/dL in a nonstressed, ambulatory subject supports the diagnosis of Diabetes Mellitus. Glucose Poct Glucometerson 0 09-10-2024 Commemt1 Glu2: Cleaned Meter Normal [facility] Comment on above: Result Comment: PERF ORMED BY: [facility] [address] [facility] [place] [address] PATHOLOGIST MAGISTERIAL DISTRICT JUDGE MOHAMED M EL-FAKHARANY M.D. Performed By: #### C MP, MG, PHOS, CBC #### [facility] [address] No Panel InformationOrdered By: Manjit Gleason on 09-10-2024 Miscellaneous Pathology Test See comment [facility] Comment on above: See report. Scanned copy available in EMR. Bedside Glucose Comment Glu2: cleaned meter [facility] Pathology Request for Lab Co rpon 09-10-2024 Pathology Request for Lab Rory Normal [facility] Comment on above: Order Comment: FASTI NG N Result Comment: See report. Scanned copy available in EMR. PERFORMED BY: [place] [address] PATHOLOGIST MAGISTERIAL DISTRICT JUDGE LE MACE M.D. Performed By: #### L IPID, BMP #### [facility] [address] [place] [address] HbA1c HPLC (Bld) [Mass fract ion]on 08-20-2024 HbA1c (Bld) [Mass fraction] Hemoglobin A1c/Hemoglobin.total in Blood by HPLC [facility] HbA1c (Bld) [Mass fraction] 8.8 % [facility] No Panel Informationon 08-20 Bedside Glucose 269 [facility] US ankle/arm indiceson 07-23 US ankle/arm indices [facility] [address] [place] [address] Ultrasound Report Signed Patient: Taye Gay MR#: [id number] 19 : 1955 Acct:[id number] Age/Sex: 68 / F ADM Date: 07/22/24 Loc: [facility] Room: Type: [facility] Attending Dr: Tray Nava MD Ordering [...] Eugenio Rob M.D.07/23/2024 9:21 AM [facility]: Carmelita Horowitz Transcribed By: AMY 07/23/24920 Dictated By: Eugenio Rob MD 07/23/24919 Signed By: 07/23/24920 Normal [facility] Urine Cultureon 07-06-2024 Bacteria identified Cx Nom (U) ORGANISM: Klebsiella oxytoca (O:KLEOXY) [place] Count >100,000 Aerobic FAMILIA Charge (NMIC56) - [...] RESISTANT TO ALL B-LACTAM DRUGS. PERFORMED BY: [place] [address] PATHOLOGIST MAGISTERIAL DISTRICT JUDGE LE MACE M.D. Normal [facility] Comment on above: Performed By: #### T SH3 wRFLX, LIPID #### [address] Urine cultureOrdered By: Columba Frost on 07-06-2024 Bacteria identified Cx Nom (U) Abnormal [facility] Alanine aminotransferase [En zymatic activity/volume] in Serum or PlasmaOrdered By: Tondra Mapus on 06-26-2024 ALT [Catalytic activity/Vol] Alanine aminotransferase [Enzymatic activity/volume] in Serum or Plasma 7-52 [facility] Albumin [Mass/volume] in Ser um or Plasma by Bromocresol green (BCG) dye binding methoOrdered By: Tondra Mapus on 06-26-2024 Albumin BCG dye [Mass/Vol] Albumin [Mass/volume] in Serum or Plasma by Bromocresol green (BCG) dye binding metho 3.5-5.7 [facility] Alkaline phosphatase [Enzyma tic activity/volume] in Serum or PlasmaOrdered By: Tondra Mapus on 06-26-2024 ALP [Catalytic activity/Vol] Alkaline phosphatase [Enzymatic activity/volume] in Serum or Plasma 34-104 [facility] Aspartate aminotransferase [ Enzymatic activity/volume] in Serum or PlasmaOrdered By: Tondra Mapus on 06-26-2024 AST [Catalytic activity/Vol] Aspartate aminotransferase [Enzymatic activity/volume] in Serum or Plasma 13-39 [facility] B-Type Natriuretic Peptideon 06-26-2024 Natriuretic peptide B (Bld) [Mass/Vol] 54.0 pg/mL Normal 5-100 [facility] Comment on above: Result Comment: PERF ORMED BY: [place] [address] PATHOLOGIST MAGISTERIAL DISTRICT JUDGE LE MACE M.D. Performed By: #### T SH3 wRFLX, LIPID #### [facility] [address] BCR-ABL Neogenomicon 025 BCR-ABL Neogenomic Normal [facility] Comment on above: Result Comment: See report. Scanned copy available in EMR. PERFORMED BY: [facility] [address] [place] [address] PATHOLOGIST MAGISTERIAL DISTRICT JUDGE LE MACE M.D. Performed By: #### C MP, MG, PHOS, CBC #### [facility] [address] Basophils Auto (Bld) [#/Vol] Ordered By: Nataliya Jane on 06-26-2024 Basophils (Bld) [#/Vol] Automated basophil count 0.0-0.2 [facility] Basophils/100 WBC Auto (Bld) Ordered By: Nataliya Jane on 06-26-2024 Basophils/100 WBC (Bld) Automated basophil % . [facility] Bilirubin.total [Mass/volume ] in Serum or PlasmaOrdered By: Angelique Russell on 06-26-2024 Bilirubin [Mass/Vol] Bilirubin.total [Mass/volume] in Serum or Plasma 0.3-1.0 [facility] CBC W Auto Differential pane l (Bld)on 06-26-2024 Basophils (Bld) [#/Vol] 0 10*3/uL 0.0 - 0.2 10*3/uL [facility] Basophils/100 WBC Manual cnt (Syn fld) 0.5 % . [facility] Eosinophils (Bld) [#/Vol] 0.2 10*3/uL 0.0 - 0.45 10*3/uL [facility] Eosinophils/100 WBC Manual cnt (Syn fld) 2.7 % . [facility] Erythrocyte distribution width (RBC) [Ratio] 14.6 % 11.9 - 15.3 % [facility] Hematocrit (Bld) [Volume fraction] 46.4 % 34.0 - 46.4 % [facility] Hemoglobin (Bld) [Mass/Vol] 15.8 g/dL High 11.8 - 15.4 g/dL [facility] Interpretation and review of laboratory results Abnormal [facility] Lymphocytes (Bld) [#/Vol] 1.6 10*3/uL 1.00 - 4.8 10*3/uL [facility] Lymphocytes/100 WBC Manual cnt (Syn fld) 23.1 % . [facility] MCH (RBC) [Entitic mass] 32.6 pg 24.7 - 34.[address] [facility] MCHC (RBC) [Mass/Vol] 34.2 g/dL 32.0 - 35.0 g/dL [facility] MCV (RBC) [Entitic vol] 95.3 fL 80 - [address] [facility] Monocytes (Bld) [#/Vol] 0.5 10*3/uL 0.0 - 0.8 10*3/uL [facility] Monocytes+Macrophages/1 00 WBC Manual cnt (Syn fld) 6.6 % . [facility] Neutrophils (Bld) [#/Vol] 4.6 10*3/uL 1.8 - 7.7 10*3/uL [facility] Neutrophils/100 WBC Manual cnt (Syn fld) 67.1 % . [facility] NRBC 0.1 /100{WBC} 0 - 0.5 /100{WBC} [facility] Platelet mean volume (Bld) [Entitic vol] 10.4 fL 6.3 - 10.[address] [facility] Platelets (Bld) [#/Vol] 120 10*3/uL Low 150 - 450 10*3/uL [facility] RBC LM.HPF (Urine sed) [#/Area] 4.86 10*6/uL 3.60 - 5.00 10*6/uL [facility] WBC (Bld) [#/Vol] 6.9 10*3/uL 3.8 - 11.6 10*3/uL [facility] WBC LM.HPF (Urine sed) [#/Area] 6.9 10*3/uL 3.8 - 11.6 10*3/uL [facility] Calcium [Mass/volume] in Ser um or PlasmaOrdered By: Angelique Russell on 06-26-2024 Calcium [Mass/Vol] Calcium [Mass/volume ] in Serum or Plasma 8.6-10.3 [facility] Carbon dioxide, total [Moles /volume] in Serum or PlasmaOrdered By: Angelique Russell on 06-26-2024 CO2 [Moles/Vol] Carbon dioxide, tota l [Moles/volume] in Serum or Plasma 21.0-31.0 [facility] Chloride [Moles/volume] in S elliot or PlasmaOrdered By: Angelique Russell on 06-26-2024 Chloride [Moles/Vol] Chloride [Moles/vol ume] in Serum or Plasma 98-107 [facility] Cholesterol [Mass/volume] in Serum or PlasmaOrdered By: Angelique Russell on 06-26-2024 Cholesterol [Mass/Vol] Cholesterol [Mass/volume] in Serum or Plasma Low 140-200 [facility] Comment on above: Chol less than 200 m g/dl low riskChol 201-239 mg/dl borderline riskChol 240 mg/dl and greater high risk Cholesterol in HDL [Mass/vol ume] in Serum or PlasmaOrdered By: Angelique Russell on 06-26-2024 Cholesterol in HDL [Mass/Vol] Serum or plasma high density lipoprotein (HDL) cholesterol measurement 23-92 [facility] Comment on above: HDL CHOL ATP-III CLA SSIFICATION Cardiovascular RiskHDL > or equal to 60 mg/dL LOWHDL < 40 mg/dL HIGH Cholesterol in LDL Calc [Mas s/Vol]Ordered By: Angelique Russell on 06-26-2024 Cholesterol in LDL [Mass/Vol] Cholesterol in LDL [Mass/volume] in Serum or Plasma by calculation 0-100 [facility] Comment on above: LDL ATP III CLASSIFI CATIONLDL less than 100 mg/dL OptimalLDL 100-129 mg/dL Near or above optimalLDL 130-159 mg/dL Borderline highLDL 160-189 mg/dL HighLDL greater than 189 mg/dL Very high Cholesterol in VLDL Calc [Ma ss/Vol]Ordered By: Angelique Russell on 06-26-2024 Cholesterol in VLDL [Mass/Vol] Cholesterol in VLDL [Mass/volume] in Serum or Plasma by calculation [facility] Complete Blood Count Auto Di ffon 06-26-2024 Basophils (Bld) [#/Vol] 0.0 10*3/uL Normal 0.0-0.2 [facility] Comment on above: Result Comment: PERF ORMED BY: [place] [address] PATHOLOGIST MAGISTERIAL DISTRICT JUDGE LE MACE M.D. Performed By: #### L IPID, BMP #### [address] Basophils/100 WBC (Bld) 0.5 % Normal . [facility] Comment on above: Performed By: #### L IPID, BMP #### [place] [address] [place] Eosinophils (Bld) [#/Vol] 0.2 10*3/uL Normal 0.0-0.45 [facility] Comment on above: Performed By: #### L IPID, BMP #### [address] Eosinophils/100 WBC (Bld) 2.7 % Normal . [facility] Comment on above: Performed By: #### L IPID, BMP #### [address] Erythrocyte distribution width (RBC) [Ratio] 14.6 % Normal 11.9-15.3 [facility] Comment on above: Performed By: #### L IPID, BMP #### [address] Hematocrit (Bld) [Volume fraction] 46.4 % Normal 34.0-46.4 [facility] Comment on above: Performed By: #### L IPID, BMP #### [address] Hemoglobin (Bld) [Mass/Vol] 15.8 g/dL High 11.8-15.4 [facility] Comment on above: Performed By: #### L IPID, BMP #### [place] [address] [place] Lymphocytes (Bld) [#/Vol] 1.6 10*3/uL Normal 1.00-4.8 [facility] Comment on above: Performed By: #### L IPID, BMP #### [facility] [address] [place] [address] [place] Lymphocytes/100 WBC (Bld) 23.1 % Normal . [facility] Comment on above: Performed By: #### L IPID, BMP #### [facility] [address] MCH (RBC) [Entitic mass] 32.6 pg Normal 24.7-34.3 [facility] Comment on above: Performed By: #### L IPID, BMP #### [address] MCV (RBC) [Entitic vol] 95.3 fL Normal 80-100 [facility] Comment on above: Performed By: #### L IPID, BMP #### [address] Mean Corpuscular HGB Conc 34.2 g/dL Normal 32.0-35.0 [facility] Comment on above: Performed By: #### L IPID, BMP #### [place] [address] [place] Monocytes (Bld) [#/Vol] 0.5 10*3/uL Normal 0.0-0.8 [facility] Comment on above: Performed By: #### L IPID, BMP #### [place] [address] [place] Monocytes/100 WBC (Bld) 6.6 % Normal . [facility] Comment on above: Performed By: #### L IPID, BMP #### [place] [address] [place] Neutrophils (Bld) [#/Vol] 4.6 10*3/uL Normal 1.8-7.7 [facility] Comment on above: Performed By: #### L IPID, BMP #### [place] [address] [place] Neutrophils/100 WBC (Bld) 67.1 % Normal . [facility] Comment on above: Performed By: #### L IPID, BMP #### [facility] [address] NRBC% 0.1 /100{WBC} Normal 0-0.5 [facility] Comment on above: Performed By: #### L IPID, BMP #### [address] Platelet mean volume (Bld) [Entitic vol] 10.4 fL Normal 6.3-10.7 The [facility] Comment on above: Performed By: #### L IPID, BMP #### [address] Platelets (Bld) [#/Vol] 120 10*3/uL Low 150-450 [facility] Comment on above: Performed By: #### L IPID, BMP #### [address] RBC (Bld) [#/Vol] 4.86 10*6/uL Normal 3.60-5.[address] [facility] Comment on above: Performed By: #### L IPID, BMP #### [address] WBC (Bld) [#/Vol] 6.9 10*3/uL Normal 3.8-11.6 The [facility] Comment on above: Performed By: #### L IPID, BMP #### [address] Comprehensive Metabolic Pane juan 06-26-2024 Albumin [Mass/Vol] 3.8 g/dL Normal 3.5-5.7 [facility] Comment on above: Performed By: #### T SH3 wRFLX, LIPID #### [address] Albumin/Globulin [Mass ratio] 1.5 {ratio} Normal [facility] Comment on above: Performed By: #### T SH3 wRFLX, LIPID #### [address] ALP [Catalytic activity/Vol] 92 U/L Normal 34-104 [facility] Comment on above: Result Comment: PERF ORMED BY: [place] [address] PATHOLOGIST [employer] JUDGE LE MACE M.D. Performed By: #### T SH3 wRFLX, LIPID #### [address] ALT [Catalytic activity/Vol] 23 U/L Normal 7-52 [facility] Comment on above: Performed By: #### T SH3 wRFLX, LIPID #### [address] Anion gap [Moles/Vol] 12.2 mmol/L Normal 6.0-15.0 [facility] Comment on above: Performed By: #### T SH3 wRFLX, LIPID #### [place] [address] [place] AST [Catalytic activity/Vol] 36 U/L Normal 13-39 [facility] Comment on above: Performed By: #### T SH3 wRFLX, LIPID #### [place] [address] [place] Bilirubin [Mass/Vol] 0.4 mg/dL Normal 0.3-1.0 [facility] Comment on above: Performed By: #### T SH3 wRFLX, LIPID #### [place] [address] [place] Calcium [Mass/Vol] 9.4 mg/dL Normal 8.6-10.3 [facility] Comment on above: Performed By: #### T SH3 wRFLX, LIPID #### [place] [address] [place] Chloride [Moles/Vol] 103 mmol/L Normal 98-107 [facility] Comment on above: Performed By: #### T SH3 wRFLX, LIPID #### [place] [address] [place] CO2 [Moles/Vol] 29.0 mmol/L Normal 21.0-31.0 [facility] Comment on above: Performed By: #### T SH3 wRFLX, LIPID #### [facility] [address] [place] [address] [place] Creatinine [Mass/Vol] 0.93 mg/dL Normal 0.60-1.20 [facility] Comment on above: Performed By: #### T SH3 wRFLX, LIPID #### [facility] [address] [place] [address] [place] GFR/1.73 sq M.predicted MDRD (S/P/Bld) [Vol rate/Area] mL/min/{1.73_m2} Normal [facility] Comment on above: Performed By: #### T SH3 wRFLX, LIPID #### [facility] [address] [place] [address] [place] Globulin (S) [Mass/Vol] 2.6 g/dL Normal [facility] Comment on above: Performed By: #### T SH3 wRFLX, LIPID #### [address] Glucose [Mass/Vol] 256 mg/dL High 70-100 [facility] Comment on above: Result Comment: [facility] Glucose Reference Range is dependent on time and content of last meal. Glucose of more than 200 mg/dL in a nonstressed, ambulatory subject supports the diagnosis of Diabetes Mellitus. ADA recommended reference range Performed By: #### T SH3 wRFLX, LIPID #### [place] [address] [place] Potassium [Moles/Vol] 4.2 mmol/L Normal 3.5-5.1 [facility] Comment on above: Performed By: #### T SH3 wRFLX, LIPID #### [facility] [address] [place] [address] [place] Protein [Mass/Vol] 6.4 g/dL Normal 6.4-8.9 [facility] Comment on above: Performed By: #### T SH3 wRFLX, LIPID #### [facility] [address] [place] [address] [place] Sodium [Moles/Vol] 140 mmol/L Normal 136-145 [facility] Comment on above: Performed By: #### T SH3 wRFLX, LIPID #### [facility] [address] Urea nitrogen [Mass/Vol] 9 mg/dL Normal 7-25 [facility] Comment on above: Performed By: #### T SH3 wRFLX, LIPID #### [facility] [address] [place] [address] [place] Creatinine [Mass/volume] in Serum or PlasmaOrdered By: Angelique Russell on 06-26-2024 Creatinine [Mass/Vol] Creatinine [Mass/v olume] in Serum or Plasma 0.60-1.20 [facility] Creatinine [Mass/volume] in UrineOrdered By: Angelique Russell on 06-26-2024 Creatinine (U) [Mass/Vol] Creatinine [Mass/volume] in Urine [facility] Comment on above: No reference range e stablished ECG 12 [place] 06-26-2024 Normal sinus rhythm [facility] Work Phone: Eosinophils Auto (Bld) [#/Vo l]Ordered By: Nataliya Jane on 06-26-2024 Eosinophils (Bld) [#/Vol] Automated eosinophil count 0.0-0.45 [facility] Eosinophils/100 WBC Auto (Bl d)Ordered By: Nataliya Jane on 06-26-2024 Eosinophils/100 WBC (Bld) Automated eosinophil % . [facility] Erythrocyte distribution wid th Auto (RBC) [Ratio]Ordered By: Nataliya Jane on 06-26-2024 Erythrocyte distribution width (RBC) [Ratio] Erythrocyte distribution width [Ratio] by Automated count 11.9-15.3 [facility] Flowcytometry [employer] 0 06-26-2024 Flowcytometry Neogenomic Normal [facility] Comment on above: Result Comment: See report. Scanned copy available in EMR. Performed By: #### C MP, MG, PHOS, CBC #### [facility] [address] [place] [id number] [place] Globulin Calc (S) [Mass/Vol] Ordered By: Angelique Russell on 06-26-2024 Globulin (S) [Mass/Vol] Serum globulin measurement by calculation (mass/volume) [facility] Glucose [Mass/volume] in Ser um or PlasmaOrdered By: Angelique Russell on 06-26-2024 Glucose [Mass/Vol] Glucose [Mass/volume ] in Serum or Plasma High 70-100 [facility] Comment on above: ADA recommended refe rence rangeRandom Glucose Reference Range is dependent on time and content of last meal. Glucose of more than 200 mg/dL in a nonstressed, ambulatory subject supports the diagnosis of Diabetes Mellitus. Hematocrit Auto (Bld) [Volum e fraction]Ordered By: Nataliya Jane on 06-26-2024 Hematocrit (Bld) [Volume fraction] Hematocrit [Volume Fraction] of Blood by Automated count 34.0-46.4 [facility] Hemoglobin [Mass/volume] in BloodOrdered By: Nataliya Jane on 06-26-2024 Hemoglobin (Bld) [Mass/Vol] Hemoglobin [Mass/volume] in Blood High 11.8-15.4 [facility] FERDINAND 2 [employer] FERDINAND 2 Neogenomic Normal [facility] Comment on above: Result Comment: See report. Scanned copy available in EMR. Performed By: #### C MP, MG, PHOS, CBC #### [facility] [address] Leukocytes [#/volume] correc deepika for nucleated erythrocytes in Blood by Automated counOrdered By: Nataliya Jane on 06-26-2024 WBC corrected for nucl RBC Auto (Bld) [#/Vol] Leukocytes [#/volume] corrected for nucleated erythrocytes in Blood by Automated coun 3.8-11.6 [facility] Lipid Panelon 06-26-2024 Cholesterol [Mass/Vol] 93 mg/dL Low 140-200 [facility] Comment on above: Result Comment: Chol less than 200 mg/dl low risk Chol 201-239 mg/dl borderline risk Chol 240 mg/dl and greater high risk Performed By: #### T SH3 wRFLX, LIPID #### [facility] [address] [place] [address] [facility] Cholesterol in HDL [Mass/Vol] 27 mg/dL Normal 23-92 [facility] Comment on above: Result Comment: HDL CHOL ATP-III CLASSIFICATION Cardiovascular Risk HDL > or equal to 60 mg/dL LOW HDL < 40 mg/dL HIGH Performed By: #### T SH3 wRFLX, LIPID #### [facility] [address] Cholesterol.total/Monica sterol in HDL [Mass ratio] 3.4 {ratio} Normal <5.0 [facility] Comment on above: Performed By: #### T SH3 wRFLX, LIPID #### [facility] [address] LDL Cholesterol,Calculated 34 mg/dL Normal 0-100 [facility] Comment on above: Result Comment: LDL ATP III CLASSIFICATION LDL less than 100 mg/dL Optimal LDL 100-129 mg/dL Near or above optimal LDL 130-159 mg/dL Borderline high LDL 160-189 mg/dL High LDL greater than 189 mg/dL Very high Performed By: #### T SH3 wRFLX, LIPID #### [facility] [address] Triglyceride w/Reflex 162 mg/dL High 0-149 [facility] Comment on above: Result Comment: TRIG ATP III CLASSIFICATION TRIG less than 150 mg/dL Normal TRIG 150-199 mg/dL Borderline high TRIG 200-500 mg/dL High TRIG greater than 500 mg/dL Very high Standard traceable to the Center for Disease Conrtrol and Prevention (CDC) test method. Performed By: #### T SH3 wRFLX, LIPID #### [facility] [address] VLDL CHOLESTEROL 32 mg/dL Normal [facility] Comment on above: Performed By: #### T SH3 wRFLX, LIPID #### [facility] [address] Lymphocytes Auto (Bld) [#/Vo l]Ordered By: Nataliya Jane on 06-26-2024 Lymphocytes (Bld) [#/Vol] Lymphocytes [#/volume] in Blood by Automated count 1.00-4.8 [facility] Lymphocytes/100 WBC Auto (Bl d)Ordered By: Nataliya Jane on 06-26-2024 Lymphocytes/100 WBC (Bld) Lymphocytes/100 leukocytes in Blood by Automated count . [facility] MCH Auto (RBC) [Entitic mass ]Ordered By: Nataliya Lucinda on 06-26-2024 MCH (RBC) [Entitic mass] MCH [Entitic mass] by Automated count 24.7-34.3 [facility] MCHC Auto (RBC) [Mass/Vol]Or dered By: Nataliya Jane on 06-26-2024 MCHC (RBC) [Mass/Vol] MCHC [Mass/volume] by Automated count 32.0-35.0 [facility] MCV Auto (RBC) [Entitic vol] Ordered By: Nataliya Jane on 06-26-2024 MCV (RBC) [Entitic vol] MCV [Entitic vol ume] by Automated count 80-100 [facility] MicroAlb Creat Ratio,Uon Albumin DL <= 20 mg/L (U) [Mass/Vol] mg/dL Normal 0.0-1.8 [facility] Comment on above: Performed By: #### C MP, MG, PHOS, CBC #### [facility] [address] Creatinine, Urine (Random) 65.00 mg/dL Normal [facility] Comment on above: Result Comment: No r eference range established Performed By: #### C MP, MG, PHOS, CBC #### [facility] [address] Microalbumin/Creatinine Ratio Not performed Normal 0.0-30.0 [facility] Comment on above: Result Comment: PERF ORMED BY: [place] [address] PATHOLOGIST [employer] JUDGE LE MACE M.D. Performed By: #### C MP, MG, PHOS, CBC #### [place] [address] [place] Microalbumin [Mass/volume] i n UrineOrdered By: Angelique Russell on 06-26-2024 Albumin DL <= 20 mg/L (U) [Mass/Vol] Microalbumin [Mass/volume] in Urine 0.0-1.8 [facility] Monocytes Auto (Bld) [#/Vol] Ordered By: Nataliya Jane on 06-26-2024 Monocytes (Bld) [#/Vol] Automated blood monocyte count 0.0-0.8 [facility] Monocytes/100 WBC Auto (Bld) Ordered By: Nataliya Jane on 06-26-2024 Monocytes/100 WBC (Bld) Automated monocyte % . [facility] Natriuretic peptide B [Mass/ Vol]Ordered By: Roland Faust on 06-26-2024 Natriuretic peptide B (Bld) [Mass/Vol] BNP ser/plas 5-100 [facility] Neutrophils Auto (Bld) [#/Vo l]Ordered By: Nataliya Jane on 06-26-2024 Neutrophils (Bld) [#/Vol] Neutrophils [#/volume] in Blood by Automated count 1.8-7.7 [facility] Neutrophils/100 WBC Auto (Bl d)Ordered By: Nataliya Jane on 06-26-2024 Neutrophils/100 WBC (Bld) Automated neutrophil % . [facility] No Panel InformationOrdered By: Angelique Russell on 06-26-2024 Estimated GFR (CKD-EPI) > 60.0 mL/Min [facility] Creatinine Clearance (Chem N/A [facility] No Panel InformationOrdered By: Nataliya Jane on 06-26-2024 BCR/abl See comment [facility] Comment on above: See report. Scanned copy available in EMR. [id number] See comment [facility] Comment on above: See report. Scanned copy available in EMR. Nucleated erythrocytes [Pres ence] in Blood by Automated countOrdered By: Nataliya Jane on 06-26-2024 Nucleated RBC Auto Ql (Bld) Nucleated erythrocytes [Presence] in Blood by Automated count 0-0.5 [facility] Platelet mean volume Auto (B ld) [Entitic vol]Ordered By: Nataliya Jane on 06-26-2024 Platelet mean volume (Bld) [Entitic vol] Platelet mean volume [Entitic volume] in Blood by Automated count 6.3-10.7 [facility] Platelets Auto (Bld) [#/Vol] Ordered By: Nataliya Jane on 06-26-2024 Platelets (Bld) [#/Vol] Platelets [#/vol ume] in Blood by Automated count Low 150-450 [facility] Potassium [Moles/volume] in Serum or PlasmaOrdered By: Angelique Russell on 06-26-2024 Potassium [Moles/Vol] Potassium [Moles/v olume] in Serum or Plasma 3.5-5.1 [facility] Protein [Mass/volume] in Ser um or PlasmaOrdered By: Angelique Russell on 06-26-2024 Protein [Mass/Vol] Protein [Mass/volume ] in Serum or Plasma 6.4-8.9 [facility] RBC Auto (Bld) [#/Vol]Ordere d By: Nataliya Gaonaoren on 06-26-2024 RBC (Bld) [#/Vol] Erythrocytes [#/volu me] in Blood by Automated count 3.60-5.00 [facility] Serum or plasma albumin/glob ulin mass ratioOrdered By: Angelique Russell on 06-26-2024 Albumin/Globulin [Mass ratio] Serum or plasma albumin/globulin mass ratio [facility] Serum or plasma anion gap de terminationOrdered By: Angelique Russell on 06-26-2024 Anion gap [Moles/Vol] Serum or plasma an ion gap determination 6.0-15.0 [facility] Serum or plasma total choles terol/high density lipoprotein (HDL) cholesterol mass ratOrdered By: Angelique Russell on 06-26-2024 Cholesterol.total/Monica sterol in HDL [Mass ratio] Serum or plasma total cholesterol/high density lipoprotein (HDL) cholesterol mass rat <5.0 [facility] Sodium [Moles/volume] in Ser um or PlasmaOrdered By: Angelique Russell on 06-26-2024 Sodium [Moles/Vol] Sodium [Moles/volume ] in Serum or Plasma 136-145 [facility] Thyroid Stim Hormone w/Rflxo n 06-26-2024 Thyroid Stim Hormone w/Rflx 1.45 u[iU]/mL Normal 0.45-5.33 [facility] Comment on above: Result Comment: PERF ORMED BY: [facility] [address] [place] [address] PATHOLOGIST [employer] JUDGE LE MACE M.D. Performed By: #### T SH3 wRFLX, LIPID #### [facility] [address] Thyrotropin [Units/volume] i n Serum or PlasmaOrdered By: Angelique Russell on 06-26-2024 TSH Qn Thyrotropin [Units/volume] in Serum or Plasma 0.45-5.33 [facility] Triglyceride [Mass/volume] i n Serum or PlasmaOrdered By: Tondra Russell on 06-26-2024 Triglyceride [Mass/Vol] Triglyceride [Mass/volume] in Serum or Plasma High 0-149 [facility] Comment on above: TRIG ATP III [...] [Mass/volume] in Serum or Plasma 11-20 [facility] Urine microalbumin/creatinin e mass ratioOrdered By: Angelique Russell on 06-26-2024 Albumin/Creatinine DL <= 20 mg/L (U) [Mass ratio] Urine microalbumin/creatinine mass ratio [facility] Comment on above: Test not performed WBC Auto (Bld) [#/Vol]Ordere d By: Nataliya Jane on 06-26-2024 WBC (Bld) [#/Vol] Leukocytes [#/volume ] in Blood by Automated count 3.8-11.6 [facility] MR head/brain wo/w conon MR head/brain wo/w con [facility] Main [place] [address] [place] [id number] MRI Report Signed Patient: Taye Gay MR#: [id number] 19 : 1955 Acct:[id number] Age/Sex: 68 / F ADM Date: 05/25/24 Loc: MR Room: Type: [facility] CLI Attending Dr: Sandra Keita DO Copies [...] Eugenio Lazo M.D.05/25/2024 7:59 PM Dictation Location: [place] [address] Transcribed By: [facility] 05/25/241958 Dictated By: Eugenio Lazo DO 05/25/241953 Signed By: 05/25/241958 Normal [facility] Magnetic resonance imaging r eportOrdered By: Eugenio Lazo on 05-25-2024 Study report [facility] Main [place] [address] [place] [address] MRI Report Signed Patient: Taye Gay MR#: [id number] : 1955 Acct:[id number] Age/Sex: 68 / F ADM Date: 5 Loc: MR Room: Type: [facility] CLI Attending Dr: Sandra Keita DO Copies [...] Eugenio Lazo M.D.05/25/2024 7:59 PM Dictation Location: [place] [address] Transcribed By: [facility] 05/25/241958 Dictated By: Eugenio Lazo DO 05/25/241953 Signed By: 05/25/241958 [facility] Alanine aminotransferase [En zymatic activity/volume] in Serum or PlasmaOrdered By: Priscilla Lang on 04-30-2024 ALT [Catalytic activity/Vol] Alanine aminotransferase [Enzymatic activity/volume] in Serum or Plasma 752 [facility] Albumin [Mass/volume] in Ser um or Plasma by Bromocresol green (BCG) dye binding methoOrdered By: Priscilla Lang on 04-30-2024 Albumin BCG dye [Mass/Vol] Albumin [Mass/volume] in Serum or Plasma by Bromocresol green (BCG) dye binding metho 3.5-5.7 [facility] Alkaline phosphatase [Enzyma tic activity/volume] in Serum or PlasmaOrdered By: Priscilla Lang on 04-30-2024 ALP [Catalytic activity/Vol] Alkaline phosphatase [Enzymatic activity/volume] in Serum or Plasma 34-104 [facility] Aspartate aminotransferase [ Enzymatic activity/volume] in Serum or PlasmaOrdered By: Priscilla Lang on 04-30-2024 AST [Catalytic activity/Vol] Aspartate aminotransferase [Enzymatic activity/volume] in Serum or Plasma 13-39 [facility] Basophils Auto (Bld) [#/Vol] Ordered By: Priscilla Lang on 04-30-2024 Basophils (Bld) [#/Vol] Automated basophil count 0.0-0.2 [facility] Basophils/100 WBC Auto (Bld) Ordered By: Priscilla Lang on 04-30-2024 Basophils/100 WBC (Bld) Automated basophil % . [facility] Bilirubin.total [Mass/volume ] in Serum or PlasmaOrdered By: Priscilla Lang on 04-30-2024 Bilirubin [Mass/Vol] Bilirubin.total [Mass/volume] in Serum or Plasma 0.3-1.0 [facility] Calcium [Mass/volume] in Ser um or PlasmaOrdered By: Priscilla Lang on 04-30-2024 Calcium [Mass/Vol] Calcium [Mass/volume ] in Serum or Plasma 8.6-10.3 [facility] Carbon dioxide, total [Moles /volume] in Serum or PlasmaOrdered By: Priscilla Lang on 04-30-2024 CO2 [Moles/Vol] Carbon dioxide, tota l [Moles/volume] in Serum or Plasma 21.0-31.0 [facility] Chloride [Moles/volume] in S elliot or PlasmaOrdered By: Priscilla Lang on 04-30-2024 Chloride [Moles/Vol] Chloride [Moles/vol ume] in Serum or Plasma 98-107 [facility] Complete Blood Count Auto Di ffon 04-30-2024 Basophils (Bld) [#/Vol] 0.0 10*3/uL Normal 0.0-0.2 [facility] Comment on above: Result Comment: PERF ORMED BY: [place] [address] PATHOLOGIST [employer] JUDGE LE MACE M.D. Performed By: #### C MP, MG, PHOS, CBC #### [facility] [address] Basophils/100 WBC (Bld) 0.4 % Normal . [facility] Comment on above: Performed By: #### C MP, MG, PHOS, CBC #### [address] Eosinophils (Bld) [#/Vol] 0.2 10*3/uL Normal 0.0-0.45 [facility] Comment on above: Performed By: #### C MP, MG, PHOS, CBC #### [address] Eosinophils/100 WBC (Bld) 2.9 % Normal . [facility] Comment on above: Performed By: #### C MP, MG, PHOS, CBC #### [address] Erythrocyte distribution width (RBC) [Ratio] 15.4 % High 11.9-15.3 [facility] Comment on above: Performed By: #### C MP, MG, PHOS, CBC #### [address] Hematocrit (Bld) [Volume fraction] 44.3 % Normal 34.0-46.4 [facility] Comment on above: Performed By: #### C MP, MG, PHOS, CBC #### [address] Hemoglobin (Bld) [Mass/Vol] 14.7 g/dL Normal 11.8-15.4 [facility] Comment on above: Performed By: #### C MP, MG, PHOS, CBC #### [address] Lymphocytes (Bld) [#/Vol] 1.8 10*3/uL Normal 1.00-4.8 [facility] Comment on above: Performed By: #### C MP, MG, PHOS, CBC #### [address] Lymphocytes/100 WBC (Bld) 24.9 % Normal . [facility] Comment on above: Performed By: #### C MP, MG, PHOS, CBC #### [address] MCH (RBC) [Entitic mass] 31.4 pg Normal 24.7-34.3 [facility] Comment on above: Performed By: #### C MP, MG, PHOS, CBC #### [address] MCV (RBC) [Entitic vol] 94.4 fL Normal 80-100 [facility] Comment on above: Performed By: #### C MP, MG, PHOS, CBC #### [address] Mean Corpuscular HGB Conc 33.3 g/dL Normal 32.0-35.0 [facility] Comment on above: Performed By: #### C MP, MG, PHOS, CBC #### [address] Monocytes (Bld) [#/Vol] 0.6 10*3/uL Normal 0.0-0.8 [facility] Comment on above: Performed By: #### C MP, MG, PHOS, CBC #### [address] Monocytes/100 WBC (Bld) 8.3 % Normal . [facility] Comment on above: Performed By: #### C MP, MG, PHOS, CBC #### [address] Neutrophils (Bld) [#/Vol] 4.6 10*3/uL Normal 1.8-7.7 [facility] Comment on above: Performed By: #### C MP, MG, PHOS, CBC #### [address] Neutrophils/100 WBC (Bld) 63.5 % Normal . [facility] Comment on above: Performed By: #### C MP, MG, PHOS, CBC #### [address] NRBC% 0.0 /100{WBC} Normal 0-0.5 [facility] Comment on above: Performed By: #### C MP, MG, PHOS, CBC #### [address] Platelet mean volume (Bld) [Entitic vol] 9.5 fL Normal 6.3-10.7 [facility] Comment on above: Performed By: #### C MP, MG, PHOS, CBC #### [address] Platelets (Bld) [#/Vol] 119 10*3/uL Low 150-450 [facility] Comment on above: Performed By: #### C MP, MG, PHOS, CBC #### [address] RBC (Bld) [#/Vol] 4.70 10*6/uL Normal 3.60-5.[address] [facility] Comment on above: Performed By: #### C MP, MG, PHOS, CBC #### [address] WBC (Bld) [#/Vol] 7.3 10*3/uL Normal 3.8-11.6 [facility] Comment on above: Performed By: #### C MP, MG, PHOS, CBC #### [address] Comprehensive Metabolic Pane juan 04-30-2024 Albumin [Mass/Vol] 3.5 g/dL Normal 3.5-5.7 [facility] Comment on above: Performed By: #### C MP, MG, PHOS, CBC #### [address] Albumin/Globulin [Mass ratio] 1.2 {ratio} Normal [facility] Comment on above: Performed By: #### C MP, MG, PHOS, CBC #### [address] ALP [Catalytic activity/Vol] 85 U/L Normal 34-104 [facility] Comment on above: Performed By: #### C MP, MG, PHOS, CBC #### [address] ALT [Catalytic activity/Vol] 16 U/L Normal 7-52 [facility] Comment on above: Performed By: #### C MP, MG, PHOS, CBC #### [address] Anion gap [Moles/Vol] 10.9 mmol/L Normal 6.0-15.0 [facility] Comment on above: Performed By: #### C MP, MG, PHOS, CBC #### [address] AST [Catalytic activity/Vol] 23 U/L Normal 13-39 [facility] Comment on above: Performed By: #### C MP, MG, PHOS, CBC #### [address] Bilirubin [Mass/Vol] 0.5 mg/dL Normal 0.3-1.0 [facility] Comment on above: Performed By: #### C MP, MG, PHOS, CBC #### [address] Calcium [Mass/Vol] 9.3 mg/dL Normal 8.6-10.3 [facility] Comment on above: Performed By: #### C MP, MG, PHOS, CBC #### [address] Chloride [Moles/Vol] 106 mmol/L Normal 98-107 [facility] Comment on above: Performed By: #### C MP, MG, PHOS, CBC #### [address] CO2 [Moles/Vol] 26.9 mmol/L Normal 21.0-31.0 [facility] Comment on above: Performed By: #### C MP, MG, PHOS, CBC #### [address] Creatinine [Mass/Vol] 0.80 mg/dL Normal 0.60-1.20 [facility] Comment on above: Performed By: #### C MP, MG, PHOS, CBC #### [address] Creatinine Clr Calc Pharmacy 82.38 Normal [facility] Comment on above: Performed By: #### C MP, MG, PHOS, CBC #### [address] GFR/1.73 sq M.predicted MDRD (S/P/Bld) [Vol rate/Area] mL/min/{1.73_m2} Normal [facility] Comment on above: Performed By: #### C MP, MG, PHOS, CBC #### [address] Globulin (S) [Mass/Vol] 2.9 g/dL Normal [facility] Comment on above: Performed By: #### C MP, MG, PHOS, CBC #### [address] Glucose [Mass/Vol] 130 mg/dL High 70-100 [facility] Comment on above: Result Comment: [facility] Glucose Reference Range is dependent on time and content of last meal. Glucose of more than 200 mg/dL in a nonstressed, ambulatory subject supports the diagnosis of Diabetes Mellitus. ADA recommended reference range Performed By: #### C MP, MG, PHOS, CBC #### [address] Potassium [Moles/Vol] 3.8 mmol/L Normal 3.5-5.1 [facility] Comment on above: Performed By: #### C MP, MG, PHOS, CBC #### [address] Protein [Mass/Vol] 6.4 g/dL Normal 6.4-8.9 [facility] Comment on above: Performed By: #### C MP, MG, PHOS, CBC #### [address] Sodium [Moles/Vol] 140 mmol/L Normal 136-145 [facility] Comment on above: Performed By: #### C MP, MG, PHOS, CBC #### [facility] [address] [place] [address] [place] Urea nitrogen [Mass/Vol] 9 mg/dL Normal 7-25 [facility] Comment on above: Performed By: #### C MP, MG, PHOS, CBC #### [facility] [address] Creatinine [Mass/volume] in Serum or PlasmaOrdered By: Priscilla Lang on 04-30-2024 Creatinine [Mass/Vol] Creatinine [Mass/v olume] in Serum or Plasma 0.60-1.20 [facility] Eosinophils Auto (Bld) [#/Vo l]Ordered By: Priscilla Lang on 04-30-2024 Eosinophils (Bld) [#/Vol] Automated eosinophil count 0.0-0.45 [facility] Eosinophils/100 WBC Auto (Bl d)Ordered By: Priscilla Lang on 04-30-2024 Eosinophils/100 WBC (Bld) Automated eosinophil % . [facility] Erythrocyte distribution wid th Auto (RBC) [Ratio]Ordered By: Priscilla Lang on 04-30-2024 Erythrocyte distribution width (RBC) [Ratio] Erythrocyte distribution width [Ratio] by Automated count High 11.9-15.3 [facility] Globulin Calc (S) [Mass/Vol] Ordered By: Priscilla Lang on 04-30-2024 Globulin (S) [Mass/Vol] Serum globulin measurement by calculation (mass/volume) [facility] Glucose Glucometer (BldC) [M ass/Vol]Ordered By: Priscilla Lang on 04-30-2024 Glucose [Mass/Vol] Capillary blood gluc ose measurement by glucometer (mass/volume) [facility] Comment on above: Random Glucose Refer ence Range is dependent on time and content of last meal. Glucose of more than 200 mg/dL in a nonstressed, ambulatory subject supports the diagnosis of Diabetes Mellitus. Glucose Poct Glucometerson 0 04-30-2024 Glucose [Mass/Vol] 154 mg/dL Normal [facility] Comment on above: Result Comment: [place] Glucose Reference Range is dependent on time and content of last meal. Glucose of more than 200 mg/dL in a nonstressed, ambulatory subject supports the diagnosis of Diabetes Mellitus. PERFORMED BY: [place] [address] PATHOLOGIST [employer] JUDGE LE MACE M.D. Performed By: #### C MP, MG, PHOS, CBC #### [facility] [address] [place] [address] [facility] Glucose [Mass/Vol] 134 mg/dL Normal [facility] Comment on above: Result Comment: [place] [facility] Glucose Reference Range is dependent on time and content of last meal. Glucose of more than 200 mg/dL in a nonstressed, ambulatory subject supports the diagnosis of Diabetes Mellitus. PERFORMED BY: [place] [address] PATHOLOGIST [employer] JUDGE LE MACE M.D. Performed By: #### T SH3 wRFLX, LIPID #### [facility] [address] [place], [place] [id number] [facility] Glucose [Mass/volume] in Ser um or PlasmaOrdered By: Priscilla Lang on 04-30-2024 Glucose [Mass/Vol] Glucose [Mass/volume ] in Serum or Plasma High 70-100 [facility] Comment on above: ADA recommended refe rence rangeRandom Glucose Reference Range is dependent on time and content of last meal. Glucose of more than 200 mg/dL in a nonstressed, ambulatory subject supports the diagnosis of Diabetes Mellitus. Hematocrit Auto (Bld) [Volum e fraction]Ordered By: Priscilla Lang on 04-30-2024 Hematocrit (Bld) [Volume fraction] Hematocrit [Volume Fraction] of Blood by Automated count 34.0-46.4 [facility] Hemoglobin [Mass/volume] in BloodOrdered By: Priscilla Lang on 04-30-2024 Hemoglobin (Bld) [Mass/Vol] Hemoglobin [Mass/volume] in Blood 11.8-15.4 [facility] Leukocytes [#/volume] correc deepika for nucleated erythrocytes in Blood by Automated counOrdered By: Priscilla Lang on 04-30-2024 WBC corrected for nucl RBC Auto (Bld) [#/Vol] Leukocytes [#/volume] corrected for nucleated erythrocytes in Blood by Automated coun 3.8-11.6 [facility] Lymphocytes Auto (Bld) [#/Vo l]Ordered By: Priscilla Lang on 04-30-2024 Lymphocytes (Bld) [#/Vol] Lymphocytes [#/volume] in Blood by Automated count 1.00-4.8 [facility] Lymphocytes/100 WBC Auto (Bl d)Ordered By: Priscilla Lang on 04-30-2024 Lymphocytes/100 WBC (Bld) Lymphocytes/100 leukocytes in Blood by Automated count . [facility] MCH Auto (RBC) [Entitic mass ]Ordered By: Priscilla Lang on 04-30-2024 MCH (RBC) [Entitic mass] MCH [Entitic mass] by Automated count 24.7-34.3 [facility] MCHC Auto (RBC) [Mass/Vol]Or dered By: Priscilla Lang on 04-30-2024 MCHC (RBC) [Mass/Vol] MCHC [Mass/volume] by Automated count 32.0-35.0 [facility] MCV Auto (RBC) [Entitic vol] Ordered By: Priscilla Lang on 04-30-2024 MCV (RBC) [Entitic vol] MCV [Entitic vol ume] by Automated count 80-100 [facility] Magnesiumon 04-30-2024 Magnesium [Mass/Vol] 1.7 mg/dL Low 1.9-2.7 [facility] Comment on above: Result Comment: PERF ORMED BY: [place] [address] PATHOLOGIST [employer] JUDGE LE MACE M.D. Performed By: #### C MP, MG, PHOS, CBC #### [address] Magnesium [Mass/volume] in S elliot or PlasmaOrdered By: Priscilla Lang on 04-30-2024 Magnesium [Mass/Vol] Magnesium [Mass/vol ume] in Serum or Plasma Low 1.9-2.7 [facility] Monocytes Auto (Bld) [#/Vol] Ordered By: Priscilla Lang on 04-30-2024 Monocytes (Bld) [#/Vol] Automated blood monocyte count 0.0-0.8 [facility] Monocytes/100 WBC Auto (Bld) Ordered By: Priscilla Lang on 04-30-2024 Monocytes/100 WBC (Bld) Automated monocyte % . [facility] Neutrophils Auto (Bld) [#/Vo l]Ordered By: Priscilla Lang on 04-30-2024 Neutrophils (Bld) [#/Vol] Neutrophils [#/volume] in Blood by Automated count 1.8-7.7 [facility] Neutrophils/100 WBC Auto (Bl d)Ordered By: Priscilla Lang on 04-30-2024 Neutrophils/100 WBC (Bld) Automated neutrophil % . [facility] No Panel InformationOrdered By: Priscilla Lang on 04-30-2024 Estimated GFR (CKD-EPI) > 60.0 mL/Min [facility] Creatinine Clearance (Chem 82.38 [facility] Nucleated erythrocytes [Pres ence] in Blood by Automated countOrdered By: Priscilla Lang on 04-30-2024 Nucleated RBC Auto Ql (Bld) Nucleated erythrocytes [Presence] in Blood by Automated count 0-0.5 [facility] Phosphate [Mass/volume] in S elliot or PlasmaOrdered By: Priscilla Lang on 04-30-2024 Phosphate [Mass/Vol] Phosphate [Mass/vol ume] in Serum or Plasma 2.5-4.5 [facility] Phosphoruson 04-30-2024 Phosphate [Mass/Vol] 2.9 mg/dL Normal 2.5-4.5 [facility] Comment on above: Performed By: #### C MP, MG, PHOS, CBC #### [address] Platelet mean volume Auto (B ld) [Entitic vol]Ordered By: Priscilla Lang on 04-30-2024 Platelet mean volume (Bld) [Entitic vol] Platelet mean volume [Entitic volume] in Blood by Automated count 6.3-10.7 [facility] Platelets Auto (Bld) [#/Vol] Ordered By: Priscilla Lang on 04-30-2024 Platelets (Bld) [#/Vol] Platelets [#/vol ume] in Blood by Automated count Low 150-450 [facility] Potassium [Moles/volume] in Serum or PlasmaOrdered By: Priscilla Lang on 04-30-2024 Potassium [Moles/Vol] Potassium [Moles/v olume] in Serum or Plasma 3.5-5.1 [facility] Protein [Mass/volume] in Ser um or PlasmaOrdered By: Priscilla Lang on 04-30-2024 Protein [Mass/Vol] Protein [Mass/volume ] in Serum or Plasma 6.4-8.9 [facility] RBC Auto (Bld) [#/Vol]Ordere d By: Priscilla Lang on 04-30-2024 RBC (Bld) [#/Vol] Erythrocytes [#/volu me] in Blood by Automated count 3.60-5.00 [facility] Serum or plasma albumin/glob ulin mass ratioOrdered By: Priscilla Lang on 04-30-2024 Albumin/Globulin [Mass ratio] Serum or plasma albumin/globulin mass ratio [facility] Serum or plasma anion gap de terminationOrdered By: Priscilla Lang on 04-30-2024 Anion gap [Moles/Vol] Serum or plasma an ion gap determination 6.0-15.0 [facility] Sodium [Moles/volume] in Ser um or PlasmaOrdered By: Priscilla Lang on 04-30-2024 Sodium [Moles/Vol] Sodium [Moles/volume ] in Serum or Plasma 136-145 [facility] Urea nitrogen [Mass/volume] in Serum or PlasmaOrdered By: Priscilla Lang on 04-30-2024 Urea nitrogen [Mass/Vol] Urea nitrogen [Mass/volume] in Serum or Plasma 7-25 [facility] WBC Auto (Bld) [#/Vol]Ordere d By: Priscilla Lang on 04-30-2024 WBC (Bld) [#/Vol] Leukocytes [#/volume ] in Blood by Automated count 3.8-11.6 [facility] Amphetamine Screen Ql (U)Ord ered By: Priscilla Lang on 04-29-2024 Amphetamines Ql (U) Amphetamines screen Negativ e [facility] Barbiturates [Presence] in U rine by Screen methodOrdered By: Priscilla Lang on 04-29-2024 Barbiturates Screen Ql (U) Barbiturates [Presence] in Urine by Screen method Negative [facility] Basic Metabolic Panelon Anion gap [Moles/Vol] 11.3 mmol/L Normal 6.0-15.0 [facility] Comment on above: Order Comment: FASTI NG N Performed By: #### L IPID, BMP #### [facility] [address] [place] [address] [place] Calcium [Mass/Vol] 8.9 mg/dL Normal 8.6-10.3 [facility] Comment on above: Order Comment: FASTI NG N Performed By: #### L IPID, BMP #### [facility] [address] [place] [address] [place] Chloride [Moles/Vol] 106 mmol/L Normal 98-107 [facility] Comment on above: Order Comment: FASTI NG N Performed By: #### L IPID, BMP #### [facility] [address] [place] [address] [place] CO2 [Moles/Vol] 25.2 mmol/L Normal 21.0-31.0 [facility] Comment on above: Order Comment: FASTI NG N Performed By: #### L IPID, BMP #### [facility] [address] [place] [id number] [place] Creatinine [Mass/Vol] 0.85 mg/dL Normal 0.60-1.20 [facility] Comment on above: Order Comment: FASTI NG N Performed By: #### L IPID, BMP #### [facility] [address] [place] [id number] [place] Creatinine Clr Calc Pharmacy 77.21 Normal [facility] Comment on above: Order Comment: FASTI NG N Performed By: #### L IPID, BMP #### [facility] [address] [place] [id number] [place] GFR/1.73 sq M.predicted MDRD (S/P/Bld) [Vol rate/Area] mL/min/{1.73_m2} Normal [facility] Comment on above: Order Comment: FASTI NG N Performed By: #### L IPID, BMP #### [facility] [address] Glucose [Mass/Vol] 206 mg/dL High 70-100 [facility] Comment on above: Order Comment: FASTI NG N Result Comment: [facility] Glucose Reference Range is dependent on time and content of last meal. Glucose of more than 200 mg/dL in a nonstressed, ambulatory subject supports the diagnosis of Diabetes Mellitus. ADA recommended reference range Performed By: #### L IPID, BMP #### [facility] [address] Potassium [Moles/Vol] 3.5 mmol/L Normal 3.5-5.1 [facility] Comment on above: Order Comment: FASTI NG N Performed By: #### L IPID, BMP #### [facility] [address] [place] [address] [place] Sodium [Moles/Vol] 139 mmol/L Normal 136-145 [facility] Comment on above: Order Comment: FASTI NG N Performed By: #### L IPID, BMP #### [facility] [address] [place] [id number] [facility] Urea nitrogen [Mass/Vol] 9 mg/dL Normal 7-25 [facility] Comment on above: Order Comment: FASTI NG N Performed By: #### L IPID, BMP #### [place] [address] [place] Benzodiazepines Screen Ql (U )Ordered By: Priscilla Lang on 04-29-2024 Benzodiazepines Ql (U) Benzodiazepines [Presence] in Urine by Screen method Negative [facility] Benzoylecgonine [Presence] i n Urine by Screen methodOrdered By: Priscilla Lang on 04-29-2024 Benzoylecgonine Screen Ql (U) Benzoylecgonine [Presence] in Urine by Screen method Negative [facility] Cannabinoids [Presence] in U rine by Screen methodOrdered By: Priscilla Lang on 04-29-2024 Cannabinoids Screen Ql (U) Cannabinoids [Presence] in Urine by Screen method Negative [facility] Comment on above: These are unconfirme d results and should not be used for legal purposes. Drug Cut-Off Concentration: AMPH 1000 ng/mL KENDRICK 200 ng/mL HEATHER 200 ng/mL COCM 300 ng/mL OP 300 ng/mL PCP 25 ng/mL THC 20 ng/mL Cholesterol [Mass/volume] in Serum or PlasmaOrdered By: Jori Hearn on 04-29-2024 Cholesterol [Mass/Vol] Cholesterol [Mass/volume] in Serum or Plasma Low 140-200 [facility] Comment on above: Chol less than 200 m g/dl low riskChol 201-239 mg/dl borderline riskChol 240 mg/dl and greater high risk Cholesterol in HDL [Mass/vol ume] in Serum or PlasmaOrdered By: Jori Hearn on 04-29-2024 Cholesterol in HDL [Mass/Vol] Serum or plasma high density lipoprotein (HDL) cholesterol measurement 23-92 [facility] Comment on above: HDL CHOL ATP-III CLA SSIFICATION Cardiovascular RiskHDL > or equal to 60 mg/dL LOWHDL < 40 mg/dL HIGH Cholesterol in LDL Calc [Mas s/Vol]Ordered By: Jori Hearn on 04-29-2024 Cholesterol in LDL [Mass/Vol] Cholesterol in LDL [Mass/volume] in Serum or Plasma by calculation 0-100 [facility] Comment on above: LDL ATP III CLASSIFI CATIONLDL less than 100 mg/dL OptimalLDL 100-129 mg/dL Near or above optimalLDL 130-159 mg/dL Borderline highLDL 160-189 mg/dL HighLDL greater than 189 mg/dL Very high Cholesterol in VLDL Calc [Ma ss/Vol]Ordered By: Jori Hearn on 04-29-2024 Cholesterol in VLDL [Mass/Vol] Cholesterol in VLDL [Mass/volume] in Serum or Plasma by calculation [facility] Drug Screen,Urineon 04-29-19 25 Amphetamine Screen,Urine Negative Normal Negative [facility] Comment on above: Performed By: #### T SH3 wRFLX, LIPID #### [address] Barbiturate Screen,Urine Negative Normal Negative [facility] Comment on above: Performed By: #### T SH3 wRFLX, LIPID #### [address] Benzodiazepines Screen,Urine Negative Normal Negative [facility] Comment on above: Performed By: #### T SH3 wRFLX, LIPID #### [address] Cannabinoid Screen,Urine Negative Normal Negative [facility] Comment on above: Result Comment: Thes e are unconfirmed results and should not be used for legal purposes. Drug Cut-Off Concentration: AMPH 1000 ng/mL KENDRICK 200 ng/mL HEATHER 200 ng/mL COCM 300 ng/mL OP 300 ng/mL PCP 25 ng/mL THC 20 ng/mL PERFORMED BY: [place] [address] PATHOLOGIST [employer] JUDGE LE MACE M.D. Performed By: #### T SH3 wRFLX, LIPID #### [address] Cocaine Screen,Urine Negative Normal Negative [facility] Comment on above: Performed By: #### T SH3 wRFLX, LIPID #### [address] Opiate Screen,Urine Negative Normal Negative [facility] Comment on above: Performed By: #### T SH3 wRFLX, LIPID #### [place] [address] [place] Phencyclidine Screen,Urine Negative Normal Negative [facility] Comment on above: Performed By: #### T SH3 wRFLX, LIPID #### [address] Glucose Poct Glucometerson 0 04-29-2024 Glucose [Mass/Vol] 165 mg/dL Normal [facility] Comment on above: Result Comment: [facility] Glucose Reference Range is dependent on time and content of last meal. Glucose of more than 200 mg/dL in a nonstressed, ambulatory subject supports the diagnosis of Diabetes Mellitus. PERFORMED BY: [place] [address] PATHOLOGIST [employer] JUDGE LE MACE M.D. Performed By: #### T SH3 wRFLX, LIPID #### [address] Commemt1 Glu2: Cleaned Meter Normal [facility] Comment on above: Result Comment: PERF ORMED BY: [place] [address] PATHOLOGIST [employer] JUDGE LE MACE M.D. Performed By: #### C MP, MG, PHOS, CBC #### [place] [address] [place] Glucose [Mass/Vol] 188 mg/dL Normal [facility] Comment on above: Result Comment: [place] [facility] Glucose Reference Range is dependent on time and content of last meal. Glucose of more than 200 mg/dL in a nonstressed, ambulatory subject supports the diagnosis of Diabetes Mellitus. Performed By: #### C MP, MG, PHOS, CBC #### [address] Commemt1 Glu2: Cleaned Meter Normal [facility] Comment on above: Result Comment: PERF ORMED BY: [place] [address] PATHOLOGIST [employer] JUDGE LE MACE M.D. Performed By: #### T SH3 wRFLX, LIPID #### [place] [address] [place] Glucose [Mass/Vol] 192 mg/dL Normal [facility] Comment on above: Result Comment: [place] [facility] Glucose Reference Range is dependent on time and content of last meal. Glucose of more than 200 mg/dL in a nonstressed, ambulatory subject supports the diagnosis of Diabetes Mellitus. Performed By: #### T SH3 wRFLX, LIPID #### [place] [address] [place] Glucose [Mass/Vol] 210 mg/dL Normal [facility] Comment on above: Result Comment: [place] [facility] Glucose Reference Range is dependent on time and content of last meal. Glucose of more than 200 mg/dL in a nonstressed, ambulatory subject supports the diagnosis of Diabetes Mellitus. PERFORMED BY: [place] [address] PATHOLOGIST [employer] JUDGE LE MACE M.D. Performed By: #### T SH3 wRFLX, LIPID #### [place] [id number] [facility] Lipid Panelon 04-29-2024 Cholesterol [Mass/Vol] 106 mg/dL Low 140-200 [facility] Comment on above: Order Comment: FASTI NG N Result Comment: Chol less than 200 mg/dl low risk Chol 201-239 mg/dl borderline risk Chol 240 mg/dl and greater high risk Performed By: #### L IPID, BMP #### [address] Cholesterol in HDL [Mass/Vol] 31 mg/dL Normal 23-92 [facility] Comment on above: Order Comment: FASTI NG N Result Comment: HDL CHOL ATP-III CLASSIFICATION Cardiovascular Risk HDL > or equal to 60 mg/dL LOW HDL < 40 mg/dL HIGH Performed By: #### L IPID, BMP #### [address] Cholesterol.total/Monica sterol in HDL [Mass ratio] 3.4 {ratio} Normal <5.0 [facility] Comment on above: Order Comment: FASTI NG N Result Comment: PERF ORMED BY: [place] [address] PATHOLOGIST [employer] JUDGE LE MACE M.D. Performed By: #### L IPID, BMP #### [facility] [address] [place], [place] [id number] [facility] LDL Cholesterol,Calculated 45 mg/dL Normal 0-100 [facility] Comment on above: Order Comment: FASTI NG N Result Comment: LDL ATP III CLASSIFICATION LDL less than 100 mg/dL Optimal LDL 100-129 mg/dL Near or above optimal LDL 130-159 mg/dL Borderline high LDL 160-189 mg/dL High LDL greater than 189 mg/dL Very high Performed By: #### L IPID, BMP #### [facility] [address] [place] [address] [place] Triglyceride w/Reflex 151 mg/dL High 0-149 [facility] Comment on above: Order Comment: FASTI NG N Result Comment: TRIG ATP III CLASSIFICATION TRIG less than 150 mg/dL Normal TRIG 150-199 mg/dL Borderline high TRIG 200-500 mg/dL High TRIG greater than 500 mg/dL Very high Standard traceable to the Center for Disease Conrtrol and Prevention (CDC) test method. Performed By: #### L IPID, BMP #### [facility] [address] VLDL CHOLESTEROL 30 mg/dL Normal [facility] Comment on above: Order Comment: FASTI NG N Performed By: #### L IPID, BMP #### [facility] [address] No Panel InformationOrdered By: Priscilla Lang on 04-29-2024 Bedside Glucose Comment Glu2: cleaned meter [facility] Opiates [Presence] in Urine by Screen methodOrdered By: Priscilla Lang on 04-29-2024 Opiates Screen Ql (U) Opiates [Presence] in Urine by Screen method Negative [facility] Phencyclidine Screen Ql (U)O rdered By: Priscilla Lang on 04-29-2024 Phencyclidine Ql (U) Phencyclidine [Pres ence] in Urine by Screen method Negative [facility] Serum or plasma total choles terol/high density lipoprotein (HDL) cholesterol mass ratOrdered By: Jori Hearn on 04-29-2024 Cholesterol.total/Monica sterol in HDL [Mass ratio] Serum or plasma total cholesterol/high density lipoprotein (HDL) cholesterol mass rat <5.0 [facility] Triglyceride [Mass/volume] i n Serum or PlasmaOrdered By: Jori Hearn on 04-29-2024 Triglyceride [Mass/Vol] Triglyceride [Mass/volume] in Serum or Plasma High 0-149 [facility] Comment on above: TRIG ATP III CLASSIF ICATIONTRIG less than 150 mg/dL NormalTRIG 150-199 mg/dL Borderline highTRIG 200-500 mg/dL High TRIG greater than 500 mg/dL Very highStandard traceable to the Center for Disease Conrtrol and Prevention (CDC) test method. Urine Cultureon 04-29-2024 Bacteria identified Cx Nom (U) 15,000 colonies/ml mixed bacterial skin contaminants 2 Days PERFORMED BY: [place] [address] PATHOLOGIST [employer] JUDGE LE MACE M.D. Normal [facility] Comment on above: Performed By: #### T SH3 wRFLX, LIPID #### [address] Urine cultureOrdered By: Bhargav Lang on 04-29-2024 Bacteria identified Cx Nom (U) Urine culture [facility] Bacteria identified Cx Nom (U) Urine culture [facility] Alanine aminotransferase [En zymatic activity/volume] in Serum or PlasmaOrdered By: Wesley Villafuerte on 04-28-2024 ALT [Catalytic activity/Vol] Alanine aminotransferase [Enzymatic activity/volume] in Serum or Plasma 7 [facility] Albumin [Mass/volume] in Ser um or Plasma by Bromocresol green (BCG) dye binding methoOrdered By: Wesley Villafuerte on 04-28-2024 Albumin BCG dye [Mass/Vol] Albumin [Mass/volume] in Serum or Plasma by Bromocresol green (BCG) dye binding metho 3.5-5.7 [facility] Alkaline phosphatase [Enzyma tic activity/volume] in Serum or PlasmaOrdered By: Wesley Villafuerte on 04-28-2024 ALP [Catalytic activity/Vol] Alkaline phosphatase [Enzymatic activity/volume] in Serum or Plasma 34-104 [facility] Anisocytosis LM Ql (Bld)Orde red By: Wesley Villafuerte on 04-28-2024 Anisocytosis Ql (Bld) Anisocytosis [Pres ence] in Blood by Light microscopy [facility] Appearance of UrineOrdered B y: Wesley Villafuerte on 04-28-2024 Appearance (U) Urine appearance Clear [facility] Aspartate aminotransferase [ Enzymatic activity/volume] in Serum or PlasmaOrdered By: Wesley Villafuerte on 04-28-2024 AST [Catalytic activity/Vol] Aspartate aminotransferase [Enzymatic activity/volume] in Serum or Plasma 13-39 [facility] B-Type Natriuretic Peptideon 04-28-2024 Natriuretic peptide B (Bld) [Mass/Vol] 25.0 pg/mL Normal 5-100 [facility] Comment on above: Result Comment: PERF ORMED BY: [place] [address] PATHOLOGIST [employer] JUDGE LE MACE M.D. Performed By: #### T SH3 wRFLX, LIPID #### [address] [address] [facility] Bacteria [Presence] in Urine by AutomatedOrdered By: Wesley Villafuerte on 04-28-2024 Bacteria Auto Ql (U) Bacteria [Presence] in Urine by Automated None Seen [facility] Basophils Auto (Bld) [#/Vol] Ordered By: Wesley Villafuerte on 04-28-2024 Basophils (Bld) [#/Vol] Automated basophil count 0.0-0.2 [facility] Basophils/100 WBC Auto (Bld) Ordered By: Wesley Villafuerte on 04-28-2024 Basophils/100 WBC (Bld) Automated basophil % . [facility] Bilirubin Test strip Ql (U)O rdered By: Wesley Villafuerte on 04-28-2024 Bilirubin Ql (U) Bilirubin.total [Presence] in Urine by Test strip Negative [facility] Bilirubin.total [Mass/volume ] in Serum or PlasmaOrdered By: Wesley Villafuerte on 04-28-2024 Bilirubin [Mass/Vol] Bilirubin.total [Mass/volume] in Serum or Plasma 0.3-1.0 [facility] BioFire Not Detectedon 04-28 BioFire Not Detected Not detected Normal Not Detecte [facility] Comment on above: Result Comment: This is a duplicate RP2.1 COVID (PCR) result to be used for statistical tracking purpose only. PERFORMED BY: [place] [address] PATHOLOGIST [employer] JUDGE LE MACE M.D. Performed By: #### L IPID, BMP #### [place] [id number] [facility] COVID-19 Detected/Not Detect edOrdered By: Wesley Villafuerte on 04-28-2024 SARS-CoV-2 (COVID-19) RNA TEJINDER+non-probe Ql (Nph) Not detected Not Detecte [facility] Comment on above: This is a duplicate RP2.1 COVID (PCR) result to be used for statistical tracking purpose only. CT angio headon 04-28-2024 CT angio head [facility] [place] [address] [place] [address] CT Scan Report Signed Patient: Taye Gay MR#: [id number] 19 : 1955 Acct:[id number] Age/Sex: 68 / F ADM Date: 04/28/24 Loc: ER Room: Type: [facility] ER Attending Dr: Copies to: Wesley Villafuerte PA-C Ordering Provider: Wesley Villafuerte PA-C Date of Service: 04/28/24 CT/CT angio head: weakness ([id number]) CT/CT angio neck: weakness ([id number]) CT/CT head/brain wo con: weakness CT head/brain [...] Oz Bowling M.D.04/28/2024 9:44 PM Dictation Location: [place] [address] Transcribed By: [facility] 04/28/242143 Dictated By: Oz Bowling II, MD 04/28/242129 Signed By: 04/28/242143 Normal [facility] Calcium [Mass/volume] in Ser um or PlasmaOrdered By: Wesley Villafuerte on 04-28-2024 Calcium [Mass/Vol] Calcium [Mass/volume ] in Serum or Plasma 8.6-10.3 [facility] Carbon dioxide, total [Moles /volume] in Serum or PlasmaOrdered By: Wesley Villafuerte on 04-28-2024 CO2 [Moles/Vol] Carbon dioxide, tota l [Moles/volume] in Serum or Plasma 21.0-31.0 [facility] Chloride [Moles/volume] in S elliot or PlasmaOrdered By: Wesley Villafuerte on 12-31-2024 Chloride [Moles/Vol] Chloride [Moles/vol ume] in Serum or Plasma 98-107 [facility] Color Auto (U)Ordered By: Colin Villafuerte on 04-28-2024 Color (U) Color of Urine by Auto Yellow [facility] Comprehensive Metabolic Pane juan 04-28-2024 Albumin [Mass/Vol] 3.7 g/dL Normal 3.5-5.7 [facility] Comment on above: Performed By: #### T SH3 wRFLX, LIPID #### [facility] [address] Albumin/Globulin [Mass ratio] 1.2 {ratio} Normal [facility] Comment on above: Performed By: #### T SH3 wRFLX, LIPID #### [address] ALP [Catalytic activity/Vol] 86 U/L Normal 34-104 [facility] Comment on above: Performed By: #### T SH3 wRFLX, LIPID #### [address] ALT [Catalytic activity/Vol] 20 U/L Normal 7-52 [facility] Comment on above: Performed By: #### T SH3 wRFLX, LIPID #### [address] Anion gap [Moles/Vol] 12.7 mmol/L Normal 6.0-15.0 [facility] Comment on above: Performed By: #### T SH3 wRFLX, LIPID #### [address] AST [Catalytic activity/Vol] 25 U/L Normal 13-39 [facility] Comment on above: Performed By: #### T SH3 wRFLX, LIPID #### [place] [address] [place] Bilirubin [Mass/Vol] 0.3 mg/dL Normal 0.3-1.0 [facility] Comment on above: Performed By: #### T SH3 wRFLX, LIPID #### [place] [address] [place] Calcium [Mass/Vol] 9.7 mg/dL Normal 8.6-10.3 [facility] Comment on above: Performed By: #### T SH3 wRFLX, LIPID #### [facility] [address] Chloride [Moles/Vol] 104 mmol/L Normal 98-107 [facility] Comment on above: Performed By: #### T SH3 wRFLX, LIPID #### [facility] [address] CO2 [Moles/Vol] 24.2 mmol/L Normal 21.0-31.0 [facility] Comment on above: Performed By: #### T SH3 wRFLX, LIPID #### [address] Creatinine [Mass/Vol] 0.85 mg/dL Normal 0.60-1.20 [facility] Comment on above: Performed By: #### T SH3 wRFLX, LIPID #### [place] [address] [place] Creatinine Clr Calc Pharmacy 77.21 Normal [facility] Comment on above: Performed By: #### T SH3 wRFLX, LIPID #### [place] [address] [place] GFR/1.73 sq M.predicted MDRD (S/P/Bld) [Vol rate/Area] mL/min/{1.73_m2} Normal [facility] Comment on above: Performed By: #### T SH3 wRFLX, LIPID #### [facility] [address] [place] [address] [place] Globulin (S) [Mass/Vol] 3.1 g/dL Normal [facility] Comment on above: Performed By: #### T SH3 wRFLX, LIPID #### [place] [address] [place] Glucose [Mass/Vol] 231 mg/dL High 70-100 [facility] Comment on above: Result Comment: [place] Glucose Reference Range is dependent on time and content of last meal. Glucose of more than 200 mg/dL in a nonstressed, ambulatory subject supports the diagnosis of Diabetes Mellitus. ADA recommended reference range Performed By: #### T SH3 wRFLX, LIPID #### [facility] [address] [place] [address] [place] Potassium [Moles/Vol] 3.9 mmol/L Normal 3.5-5.1 [facility] Comment on above: Result Comment: Hemo lysis is present at a level that could interfere with the result. Contact lab if redraw is required Performed By: #### T SH3 wRFLX, LIPID #### [facility] [address] [place] [address] [place] Protein [Mass/Vol] 6.8 g/dL Normal 6.4-8.9 [facility] Comment on above: Performed By: #### T SH3 wRFLX, LIPID #### [place] [address] [place] Sodium [Moles/Vol] 137 mmol/L Normal 136-145 [facility] Comment on above: Performed By: #### T SH3 wRFLX, LIPID #### [place] [address] [place] Urea nitrogen [Mass/Vol] 11 mg/dL Normal 7-25 [facility] Comment on above: Performed By: #### T SH3 wRFLX, LIPID #### [place] [address] [place] Creatinine [Mass/volume] in Serum or PlasmaOrdered By: Wesley Villafuerte on 04-28-2024 Creatinine [Mass/Vol] Creatinine [Mass/v olume] in Serum or Plasma 0.60-1.20 [facility] Dipstick and Microscopicon 1 Appearance (U) Clear Normal Clear [facility] Comment on above: Order Comment: Name Collection Type:: Clean-Voided Midstream Performed By: #### A DDONUAPLUS #### [place] [address] [place] Bacteria,Urine Rare Normal None Seen [facility] Comment on above: Order Comment: Name Collection Type:: Clean-Voided Midstream Performed By: #### A DDONUAPLUS #### [facility] [address] [place] [address] [place] Bilirubin,Urine Negative Normal Negative [facility] Comment on above: Order Comment: Name Collection Type:: Clean-Voided Midstream Performed By: #### A DDONUAPLUS #### [place] [address] [place] Budding Yeast,Urine Rare High None Seen [facility] Comment on above: Order Comment: Name Collection Type:: Clean-Voided Midstream Result Comment: PERF ORMED BY: [place] [address] PATHOLOGIST [employer] JUDGE LE MACE M.D. Performed By: #### A DDONUAPLUS #### [address] Color (U) Light-Yellow Normal Yellow [facility] Comment on above: Order Comment: Name Collection Type:: Clean-Voided Midstream Performed By: #### A DDONUAPLUS #### [place] [address] [place] Glucose Ql (U) >= High Normal [facility] Comment on above: Order Comment: Name Collection Type:: Clean-Voided Midstream Performed By: #### A DDONUAPLUS #### [place] [address] [place] Hyaline Casts,Urine 0 [LPF] Normal 0-[address] [facility] Comment on above: Order Comment: Name Collection Type:: Clean-Voided Midstream Performed By: #### A DDONUAPLUS #### [place] [address] [place] Ketones Ql (U) Negative Normal Negative [facility] Comment on above: Order Comment: Name Collection Type:: Clean-Voided Midstream Performed By: #### A DDONUAPLUS #### [place] [address] [place] Leukocyte esterase Test strip Ql (U) Negative Normal Negative [facility] Comment on above: Order Comment: Name Collection Type:: Clean-Voided Midstream Performed By: #### A DDONUAPLUS #### [place] [address] [place] Nitrite,Urine Negative Normal Negative [facility] Comment on above: Order Comment: Name Collection Type:: Clean-Voided Midstream Performed By: #### A DDONUAPLUS #### [place] [address] [place] Occult Blood,Urine 2+ High Negative [facility] Comment on above: Order Comment: Name Collection Type:: Clean-Voided Midstream Result Comment: PERF ORMED BY: [place] [address] PATHOLOGIST [employer] JUDGE LE MACE M.D. Performed By: #### A DDONUAPLUS #### [place] [address] [place] pH (U) 5.5 [pH] Normal 5.0-9.0 [facility] Comment on above: Order Comment: Name Collection Type:: Clean-Voided Midstream Performed By: #### A DDONUAPLUS #### [place] [address] [place] Protein,Urine Negative Normal Negative [facility] Comment on above: Order Comment: Name Collection Type:: Clean-Voided Midstream Performed By: #### A DDONUAPLUS #### [place] [address] [place] RBC,Urine 10 [HPF] High 0-4 [facility] Comment on above: Order Comment: Name Collection Type:: Clean-Voided Midstream Performed By: #### A DDONUAPLUS #### [place] [address] [place] Specificy [place],Urine 1.038 High 1.00 1-1.03 0 [facility] Comment on above: Order Comment: Name Collection Type:: Clean-Voided Midstream Performed By: #### A DDONUAPLUS #### [place] [address] [place] Squamous Epithelial Cell,Urine 3 [HPF] High 0-2 [facility] Comment on above: Order Comment: Name Collection Type:: Clean-Voided Midstream Performed By: #### A DDONUAPLUS #### [facility] [address] [place] [id number] [facility] Urobilinogen,Urine Normal Normal Normal [facility] Comment on above: Order Comment: Name Collection Type:: Clean-Voided Midstream Performed By: #### A DDONUAPLUS #### [facility] [address] [place] [id number] [facility] WBC,Urine 5 [HPF] High 0-4 [facility] Comment on above: Order Comment: Name Collection Type:: Clean-Voided Midstream Performed By: #### A DDONUAPLUS #### [address] ECG 12 lead ECGon 04-28-2024 ECG 12 lead ECG [facility] Main [place] [address] [place] [address] Electrocardiograph Report Signed Patient: Taye Gay MR#: [id number] 19 : 1955 Acct:[id number] Age/Sex: 68 / F ADM Date: 04/28/24 Loc: Room: [address] [place] [address] Type: ADM IN Attending Dr: Jori Hearn [...] Jori Batista MD 05/23 0144 Normal [facility] Eosinophils Auto (Bld) [#/Vo l]Ordered By: Wesley Villafuerte on 04-28-2024 Eosinophils (Bld) [#/Vol] Automated eosinophil count 0.0-0.45 [facility] Eosinophils/100 WBC Auto (Bl d)Ordered By: Wesley Villafuerte on 04-28-2024 Eosinophils/100 WBC (Bld) Automated eosinophil % . [facility] Epithelial cells.squamous [# /area] in Urine sediment by Automated countOrdered By: Wesley Villafuerte on 04-28-2024 Epithelial cells.squamous Auto (Urine sed) [#/Area] Epithelial cells.squamous [#/area] in Urine sediment by Automated count High 0-2 [facility] Erythrocyte distribution wid th Auto (RBC) [Ratio]Ordered By: Wesley Villafuerte on 04-28-2024 Erythrocyte distribution width (RBC) [Ratio] Erythrocyte distribution width [Ratio] by Automated count High 11.9-15.3 [facility] Erythrocyte morphology findi ng [Identifier] in BloodOrdered By: Wesley Villafuerte on 04-28-2024 RBC morphology finding Nom (Bld) RBC morphology [facility] Erythrocytes [#/area] in Uri ne sediment by Automated countOrdered By: Wesley Villafuerte on 04-28-2024 RBC Auto (Urine sed) [#/Area] Erythrocytes [#/area] in Urine sediment by Automated count High 0-4 [facility] Globulin Calc (S) [Mass/Vol] Ordered By: Wesley Villafuerte on 04-28-2024 Globulin (S) [Mass/Vol] Serum globulin measurement by calculation (mass/volume) [facility] Glucose [Mass/volume] in Ser um or PlasmaOrdered By: Wesley Villafuerte on 04-28-2024 Glucose [Mass/Vol] Glucose [Mass/volume ] in Serum or Plasma High 70-100 [facility] Comment on above: ADA recommended refe [...] Urine by Test strip High Normal [facility] HbA1c HPLC (Bld) [Mass fract ion]on 04-28-2024 HbA1c (Bld) [Mass fraction] Hemoglobin A1c/Hemoglobin.total in Blood by HPLC [facility] Hematocrit Auto (Bld) [Volum e fraction]Ordered By: Wesley Villafuerte on 04-28-2024 Hematocrit (Bld) [Volume fraction] Hematocrit [Volume Fraction] of Blood by Automated count High 34.0-46.4 [facility] Hemoglobin Test strip Ql (U) Ordered By: Wesley Villafuerte on 04-28-2024 Hemoglobin Ql (U) Hemoglobin [Presence ] in Urine by Test strip High Negative [facility] Hemoglobin [Mass/volume] in BloodOrdered By: Wesley Villafuerte on 04-28-2024 Hemoglobin (Bld) [Mass/Vol] Hemoglobin [Mass/volume] in Blood High 11.8-15.4 [facility] Hyaline casts [#/area] in Ur ine sediment by Automated countOrdered By: Wesley Villafuerte on 04-28-2024 Hyaline casts Auto (Urine sed) [#/Area] Hyaline casts [#/area] in Urine sediment by Automated count 0-8 [facility] INR in Platelet poor plasma by Coagulation assayOrdered By: Wesley Villafuerte on 04-28-2024 INR Coag (PPP) [Relative time] INR in Platelet poor plasma by Coagulation assay [facility] Comment on above: INR Therapeutic Rang [...] n Urine by Test strip Negative [facility] Leukocyte esterase [Presence ] in Urine by Test stripOrdered By: Wesley Villafuerte on 04-28-2024 Leukocyte esterase Test strip Ql (U) Leukocyte esterase [Presence] in Urine by Test strip Negative [facility] Leukocytes [#/area] in Urine sediment by Automated countOrdered By: Wesley Villafuerte on 04-28-2024 WBC Auto (Urine sed) [#/Area] Leukocytes [#/area] in Urine sediment by Automated count High 0-4 [facility] Leukocytes [#/volume] correc deepika for nucleated erythrocytes in Blood by Automated counOrdered By: Wesley Villafuerte on 04-28-2024 WBC corrected for nucl RBC Auto (Bld) [#/Vol] Leukocytes [#/volume] corrected for nucleated erythrocytes in Blood by Automated coun 3.8-11.6 [facility] Lymphocytes Auto (Bld) [#/Vo l]Ordered By: Wesley Villafuerte on 04-28-2024 Lymphocytes (Bld) [#/Vol] Lymphocytes [#/volume] in Blood by Automated count 1.00-4.8 [facility] Lymphocytes/100 WBC Auto (Bl d)Ordered By: Wesley Villafuerte on 04-28-2024 Lymphocytes/100 WBC (Bld) Lymphocytes/100 leukocytes in Blood by Automated count . [facility] MCH Auto (RBC) [Entitic mass ]Ordered By: Wesley Villafuerte on 04-28-2024 MCH (RBC) [Entitic mass] MCH [Entitic mass] by Automated count 24.7-34.3 [facility] MCHC Auto (RBC) [Mass/Vol]Or dered By: Wesley Villafuerte on 04-28-2024 MCHC (RBC) [Mass/Vol] MCHC [Mass/volume] by Automated count 32.0-35.0 [facility] MCV Auto (RBC) [Entitic vol] Ordered By: Wesley Villafuerte on 04-28-2024 MCV (RBC) [Entitic vol] MCV [Entitic vol ume] by Automated count 80-100 [facility] Magnesiumon 04-28-2024 Magnesium [Mass/Vol] 1.7 mg/dL Low 1.9-2.7 [facility] Comment on above: Result Comment: PERF ORMED BY: [facility] [address] [place] [address] PATHOLOGIST [employer] JUDGE LE MACE M.D. Performed By: #### T SH3 wRFLX, LIPID #### [facility] [address] [place] [id number] [facility] Magnesium [Mass/volume] in S elliot or PlasmaOrdered By: Wesley Villafuerte on 04-28-2024 Magnesium [Mass/Vol] Magnesium [Mass/vol ume] in Serum or Plasma Low 1.9-2.7 [facility] Monocyte distribution width [Entitic volume] in Blood by AutomatedOrdered By: Wesley Villafuerte on 04-28-2024 Monocyte distribution width Auto (Bld) [Entitic vol] Monocyte distribution width [Entitic volume] in Blood by Automated High 0.00-20.00 [facility] Comment on above: For adults in ED, MD W > 20.0 may be associated with a higher risk of sepsis during the first 12 hrs of hospital admission Monocytes Auto (Bld) [#/Vol] Ordered By: Wesley Villafuerte on 04-28-2024 Monocytes (Bld) [#/Vol] Automated blood monocyte count 0.0-0.8 [facility] Monocytes/100 WBC Auto (Bld) Ordered By: Wesley Villafuerte on 04-28-2024 Monocytes/100 WBC (Bld) Automated monocyte % . [facility] Natriuretic peptide B [Mass/ Vol]Ordered By: Wesley Villafuerte on 04-28-2024 Natriuretic peptide B (Bld) [Mass/Vol] BNP ser/plas 5-100 [facility] Neutrophils Auto (Bld) [#/Vo l]Ordered By: Wesley Villafuerte on 04-28-2024 Neutrophils (Bld) [#/Vol] Neutrophils [#/volume] in Blood by Automated count 1.8-7.7 [facility] Neutrophils/100 WBC Auto (Bl d)Ordered By: Wesley Villafuerte on 04-28-2024 Neutrophils/100 WBC (Bld) Automated neutrophil % . [facility] Nitrite Test strip Ql (U)Ord ered By: Wesley Villafuerte on 04-28-2024 Nitrite Ql (U) Nitrite [Presence] i n Urine by Test strip Negative [facility] No Panel InformationOrdered By: Wesley Villafuerte on 04-28-2024 Estimated GFR (CKD-EPI) > 60.0 mL/Min [facility] Creatinine Clearance (Chem 77.21 [facility] No Panel Informationon 04-28 Bedside Glucose 211 [facility] Nucleated erythrocytes [Pres ence] in Blood by Automated countOrdered By: Wesley Villafuerte on 04-28-2024 Nucleated RBC Auto Ql (Bld) Nucleated erythrocytes [Presence] in Blood by Automated count 0-0.5 [facility] Partial Thromboplastin Timeo n 04-28-2024 aPTT Coag (d) [Time] 30.0 s Normal 25.1-36.5 [facility] Comment on above: Result Comment: A he matocrit value greater than 55% may lead to inaccurate results in coagulation testing. Patients having hematocrit values >55% require a special collection tube for coagulation studies. Please contact the laboratory at [phone] for redraw instructions. PERFORMED BY: [place] [address] PATHOLOGIST [employer] JUDGE LE MACE M.D. Performed By: #### C MP, MG, PHOS, CBC #### [facility] [address] [place] [address] Platelet adequacy [Presence] in Blood by Light microscopyOrdered By: Wesley Villafuerte on 04-28-2024 Platelets LM Ql (Bld) Platelet adequacy [Presence] in Blood by Light microscopy Normal [facility] Platelet mean volume Auto (B ld) [Entitic vol]Ordered By: Wesley Villafuerte on 04-28-2024 Platelet mean volume (Bld) [Entitic vol] Platelet mean volume [Entitic volume] in Blood by Automated count 6.3-10.7 [facility] Platelet morphology finding [Identifier] in BloodOrdered By: Wesley Villafuerte on 04-28-2024 Platelet morphology finding Nom (Bld) Platelet morphology finding [Identifier] in Blood Normal [facility] Platelets Auto (Bld) [#/Vol] Ordered By: Wesley Villafuerte on 04-28-2024 Platelets (Bld) [#/Vol] Platelets [#/vol ume] in Blood by Automated count Low 150-450 [facility] Polychromasia [Presence] in Blood by Light microscopyOrdered By: Wesley Villafuerte on 04-28-2024 Polychromasia LM Ql (Bld) Polychromasia [Presence] in Blood by Light microscopy [facility] Potassium [Moles/volume] in Serum or PlasmaOrdered By: Wesley Villafuerte on 04-28-2024 Potassium [Moles/Vol] Potassium [Moles/v olume] in Serum or Plasma 3.5-5.1 [facility] [facility] Comment on above: Hemolysis is present at a level that could interfere with the result.Contact lab if redraw is required Protein Test strip (U) [Mass /Vol]Ordered By: Wesley Villafuerte on 04-28-2024 Protein (U) [Mass/Vol] Protein [Mass/vol ume] in Urine by Test strip Negative [facility] Protein [Mass/volume] in Ser um or PlasmaOrdered By: Wesley Villafuerte on 04-28-2024 Protein [Mass/Vol] Protein [Mass/volume ] in Serum or Plasma 6.4-8.9 [facility] Prothrombin Time INRon 04-28 INR Coag (PPP) [Relative time] 1.3 {INR} Normal [facility] Comment on above: Result [...] By: #### T SH3 wRFLX, LIPID #### [facility] [address] [id number] [facility] PT Coag (PPP) [Time] 15.1 s High 9.0-12.9 [facility] Comment on above: Result Comment: A he matocrit value greater than 55% may lead to inaccurate results in coagulation testing. Patients having hematocrit values >55% require a special collection tube for coagulation studies. Please contact the laboratory at [phone] for redraw instructions. Performed By: #### T SH3 wRFLX, LIPID #### [facility] [address] [place] [address] [facility] Prothrombin time (PT)Ordered By: Wesley Villafuerte on 04-28-2024 PT Coag (PPP) [Time] Prothrombin time (PT) High 9.0- 12.9 [facility] Comment on above: A hematocrit value g reater than 55% may lead to inaccurate results in coagulation testing. Patients having hematocrit values >55% require a special collection tube for coagulation studies. Please contact the laboratory at [phone] for redraw instructions. RBC Auto (Bld) [#/Vol]Ordere d By: Wesley Villafuerte on 04-28-2024 RBC (Bld) [#/Vol] Erythrocytes [#/volu me] in Blood by Automated count High 3.60-5.00 [facility] Respiratory (Upper) Panel, P CRon 04-28-2024 [...] A H3 Blank Space ------ PERFORMED BY: [facility] Mike [place] [address] PATHOLOGIST [employer] JUDGE LE MACE M.D. Normal [facility] Comment on above: Performed By: #### L IPID, BMP #### [facility] [address] Respiratory pathogens DNA an d RNA panel - Nasopharynx by TEJINDER with non-probe detectionOrdered By: Wesley Villafuerte on 04-28-2024 Respiratory pathogens DNA and RNA panel TEJINDER+non-probe (Nph) Respiratory pathogens DNA and RNA panel - Nasopharynx by TEJINDER with non-probe detection [facility] Respiratory pathogens DNA and RNA panel TEJINDER+non-probe (Nph) Respiratory pathogens DNA and RNA panel - Nasopharynx by TEJINDER with non-probe detection [facility] Scan and CBCon 04-28-2024 Anisocytosis Ql (Bld) Slight Normal [facility] Comment on above: Performed By: #### C MP, MG, PHOS, CBC #### [address] Basophils (Bld) [#/Vol] 0.1 10*3/uL Normal 0.0-0.2 [facility] Comment on above: Performed By: #### C MP, MG, PHOS, CBC #### [address] Basophils/100 WBC (Bld) 1.1 % Normal . [facility] Comment on above: Performed By: #### C MP, MG, PHOS, CBC #### [address] Eosinophils (Bld) [#/Vol] 0.3 10*3/uL Normal 0.0-0.45 [facility] Comment on above: Performed By: #### C MP, MG, PHOS, CBC #### [place] [address] [place] Eosinophils/100 WBC (Bld) 2.7 % Normal . [facility] Comment on above: Performed By: #### C MP, MG, PHOS, CBC #### [address] Erythrocyte distribution width (RBC) [Ratio] 15.4 % High 11.9-15.3 [facility] Comment on above: Performed By: #### C MP, MG, PHOS, CBC #### [address] Hematocrit (Bld) [Volume fraction] 48.1 % High 34.0-46.4 [facility] Comment on above: Performed By: #### C MP, MG, PHOS, CBC #### [address] Hemoglobin (Bld) [Mass/Vol] 16.0 g/dL High 11.8-15.4 [facility] Comment on above: Performed By: #### C MP, MG, PHOS, CBC #### [address] Lymphocytes (Bld) [#/Vol] 2.5 10*3/uL Normal 1.00-4.8 [facility] Comment on above: Performed By: #### C MP, MG, PHOS, CBC #### [address] Lymphocytes/100 WBC (Bld) 24.6 % Normal . [facility] Comment on above: Performed By: #### C MP, MG, PHOS, CBC #### [address] MCH (RBC) [Entitic mass] 31.7 pg Normal 24.7-34.3 [facility] Comment on above: Performed By: #### C MP, MG, PHOS, CBC #### [address] MCV (RBC) [Entitic vol] 95.1 fL Normal 80-100 [facility] Comment on above: Performed By: #### C MP, MG, PHOS, CBC #### [address] Mean Corpuscular HGB Conc 33.3 g/dL Normal 32.0-35.0 [facility] Comment on above: Performed By: #### C MP, MG, PHOS, CBC #### [address] Monocytes (Bld) [#/Vol] 0.8 10*3/uL Normal 0.0-0.8 [facility] Comment on above: Performed By: #### C MP, MG, PHOS, CBC #### [address] Monocytes/100 WBC (Bld) 20.25 % High 0.00-20.00 [facility] Comment on above: Result Comment: For adults in ED, MDW > 20.0 may be associated with a higher risk of sepsis during the first 12 hrs of hospital admission Performed By: #### C MP, MG, PHOS, CBC #### [address] Monocytes/100 WBC (Bld) 7.6 % Normal . [facility] Comment on above: Performed By: #### C MP, MG, PHOS, CBC #### [address] Neutrophils (Bld) [#/Vol] 6.5 10*3/uL Normal 1.8-7.7 [facility] Comment on above: Performed By: #### C MP, MG, PHOS, CBC #### [address] Neutrophils/100 WBC (Bld) 64.0 % Normal . [facility] Comment on above: Performed By: #### C MP, MG, PHOS, CBC #### [place] [address] [place] NRBC% 0.2 /100{WBC} Normal 0-0.5 [facility] Comment on above: Performed By: #### C MP, MG, PHOS, CBC #### [address] Platelet Estimate Decreased Normal Normal [facility] Comment on above: Performed By: #### C MP, MG, PHOS, CBC #### [address] Platelet mean volume (Bld) [Entitic vol] 9.9 fL Normal 6.3-10.7 [facility] Comment on above: Performed By: #### C MP, MG, PHOS, CBC #### [address] Platelet Morphology Normal Normal Normal [facility] Comment on above: Result Comment: PERF ORMED BY: [place] [address] PATHOLOGIST [employer] JUDGE LE MACE M.D. Performed By: #### C MP, MG, PHOS, CBC #### [address] Platelets (Bld) [#/Vol] 136 10*3/uL Low 150-450 [facility] Comment on above: Performed By: #### C MP, MG, PHOS, CBC #### [address] Polychromasia Slight Normal [facility] Comment on above: Performed By: #### C MP, MG, PHOS, CBC #### [address] RBC (Bld) [#/Vol] 5.06 10*6/uL High 3.60-5.[address] [facility] Comment on above: Performed By: #### C MP, MG, PHOS, CBC #### [address] WBC (Bld) [#/Vol] 10.2 10*3/uL Normal 3.8-11.[address] [facility] Comment on above: Performed By: #### C MP, MG, PHOS, CBC #### [address] WBC (Bld) [#/Vol] 10.9 10*3/uL Normal 3.8-11.[address] [facility] Comment on above: Performed By: #### C MP, MG, PHOS, CBC #### [address] Serum or plasma albumin/glob ulin mass ratioOrdered By: Wesley Villafuerte on 04-28-2024 Albumin/Globulin [Mass ratio] Serum or plasma albumin/globulin mass ratio [facility] Serum or plasma anion gap de terminationOrdered By: Wesley Villafuerte on 04-28-2024 Anion gap [Moles/Vol] Serum or plasma an ion gap determination 6.0-15.0 [facility] Sodium [Moles/volume] in Ser um or PlasmaOrdered By: Wesley Villafuerte on 04-28-2024 Sodium [Moles/Vol] Sodium [Moles/volume ] in Serum or Plasma 136-145 [facility] Specific gravity Test strip (U) [Rel density]Ordered By: Wesley Villafuerte on 04-28-2024 Specific gravity (U) [Rel density] Specific gravity of Urine by Test strip High 1.001-1.03 0 [facility] Troponin I High Sensitivityo n 04-28-2024 Troponin I High Sensitivity 5.1 pg/mL Normal 0.0-15.0 [facility] Comment on above: Result Comment: PERF ORMED BY: [place] [address] PATHOLOGIST [employer] JUDGE LE MACE M.D. Performed By: #### T SH3 wRFLX, LIPID #### [address] Troponin I.cardiac [Mass/vol ume] in Serum or Plasma by Detection limit <= 0.01 ng/Ordered By: Wesley Villafuerte on 04-28-2024 Troponin I.cardiac DL <= 0.01 ng/mL [Mass/Vol] Troponin I.cardiac [Mass/volume] in Serum or Plasma by Detection limit <= 0.01 ng/ 0.0-15.0 [facility] Urea nitrogen [Mass/volume] in Serum or PlasmaOrdered By: Wesley Villafuerte on 04-28-2024 Urea nitrogen [Mass/Vol] Urea nitrogen [Mass/volume] in Serum or Plasma 7-25 [facility] Urobilinogen Test strip (U) [Mass/Vol]Ordered By: Wesley Villafuerte on 04-28-2024 Urobilinogen (U) [Mass/Vol] Urobilinogen [Mass/volume] in Urine by Test strip Normal [facility] WBC Auto (Bld) [#/Vol]Ordere d By: Wesley Villafuerte on 04-28-2024 WBC (Bld) [#/Vol] Leukocytes [#/volume ] in Blood by Automated count 3.8-11.6 [facility] X-ray reportOrdered By: Oz Bowling on 04-28-2024 Study report [facility] Main [address] [address] XRay Report Signed Patient: Taye Gay MR#: [id number] : 1955 Acct:[id number] Age/Sex: 68 / F ADM Date: 4 Loc: ER Room: Type: [facility] ER Attending Dr: Copies to: Wesley Villafuerte [...] Oz Bowling M.D.04/28/2024 9:46 PM Dictation Location: [place] [address] Transcribed By: AMY 04/28/242145 Dictated By: Oz Bowling II, MD 04/28/242143 Signed By: 04/28/242145 [facility] Work Phone: XR chest 2V*on 04-28-2024 XR chest 2V* [facility] Main [address] [address] XRay Report Signed Patient: Taye Gay MR#: [id number] 19 : 1955 Acct:[id number] Age/Sex: 68 / F ADM Date: 04/28/24 Loc: ER Room: Type: [facility] ER Attending Dr: Copies to: Wesley Villafuerte [...] Oz Bowling M.D.04/28/2024 9:46 PM Dictation Location: [place] [address] Transcribed By: [facility] 04/28/242145 Dictated By: Oz Bowling II, MD 04/28/242143 Signed By: 04/28/242145 Normal [facility] Yeast.budding [Presence] in Urine by Computer assisted methodOrdered By: Wesley Villafuerte on 04-28-2024 Yeast.budding Computer assisted Ql (U) Yeast.budding [Presence] in Urine by Computer assisted method High None Seen [facility] aPTT in Platelet poor plasma by Coagulation assayOrdered By: Wesley Villafuerte on 04-28-2024 aPTT Coag (PPP) [Time] Activated partial thromboplastin time (aPTT) in platelet poor plasma by coagulation a 25.1-36.5 [facility] Comment on above: A hematocrit value g reater than 55% may lead to inaccurate results in coagulation testing. Patients having hematocrit values >55% require a special collection tube for coagulation studies. Please contact the laboratory at [phone] for redraw instructions. pH Test strip (U)Ordered By: Wesley Villafuerte on 04-28-2024 pH (U) pH of Urine by Test strip 5.0-9.0 [facility] ECG 12 lead ECGon 04-27-2024 ECG 12 lead ECG [facility] [place] [address] Electrocardiograph Report Signed Patient: Taye Gay MR#: [id number] 19 : 1955 Acct:[id number] Age/Sex: 68 / F ADM Date: 04/27/24 Loc: ER Room: Type: [facility] ER Attending Dr: Ordering Provider: Rl [...] By Rl Villavicencio DO 0219 Normal [facility] Alanine aminotransferase [En zymatic activity/volume] in Serum or PlasmaOrdered By: Nataliya Jane on 04-14-2024 ALT [Catalytic activity/Vol] Alanine aminotransferase [Enzymatic activity/volume] in Serum or Plasma [facility] Albumin [Mass/volume] in Ser um or Plasma by Bromocresol green (BCG) dye binding methoOrdered By: Nataliya Jane on 04-14-2024 Albumin BCG dye [Mass/Vol] Albumin [Mass/volume] in Serum or Plasma by Bromocresol green (BCG) dye binding metho 3.5-5.7 [facility] Alkaline phosphatase [Enzyma tic activity/volume] in Serum or PlasmaOrdered By: Nataliya Jane on 04-14-2024 ALP [Catalytic activity/Vol] Alkaline phosphatase [Enzymatic activity/volume] in Serum or Plasma 34-104 [facility] Aspartate aminotransferase [ Enzymatic activity/volume] in Serum or PlasmaOrdered By: Nataliya Jane on 04-14-2024 AST [Catalytic activity/Vol] Aspartate aminotransferase [Enzymatic activity/volume] in Serum or Plasma 13-39 [facility] Bilirubin.total [Mass/volume ] in Serum or PlasmaOrdered By: Nataliya Lucinda on 04-14-2024 Bilirubin [Mass/Vol] Bilirubin.total [Mass/volume] in Serum or Plasma 0.3-1.0 [facility] CBC W Auto Differential pane l (Bld)on 04-14-2024 Basophils (Bld) [#/Vol] 0.1 10*3/uL 0.0 - 0.2 10*3/uL [facility] Basophils/100 WBC Manual cnt (Syn fld) 0.6 % . [facility] Eosinophils (Bld) [#/Vol] 0.3 10*3/uL 0.0 - 0.45 10*3/uL [facility] Eosinophils/100 WBC Manual cnt (Syn fld) 2.6 % . [facility] Erythrocyte distribution width (RBC) [Ratio] 15 % 11.9 - 15.3 % [facility] Hematocrit (Bld) [Volume fraction] 49.7 % High 34.0 - 46.4 % [facility] Hemoglobin (Bld) [Mass/Vol] 16.6 g/dL High 11.8 - 15.4 g/dL [facility] Interpretation and review of laboratory results Abnormal [facility] Lymphocytes (Bld) [#/Vol] 2.1 10*3/uL 1.00 - 4.8 10*3/uL [facility] Lymphocytes/100 WBC Manual cnt (Syn fld) 19.3 % . [facility] MCH (RBC) [Entitic mass] 31.2 pg 24.7 - 34.[address] [facility] MCHC (RBC) [Mass/Vol] 33.4 g/dL 32.0 - 35.0 g/dL [facility] MCV (RBC) [Entitic vol] 93.4 fL 80 - [address] [facility] Monocytes (Bld) [#/Vol] 0.9 10*3/uL High 0.0 - 0.8 10*3/uL [facility] Monocytes+Macrophages/1 00 WBC Manual cnt (Syn fld) 8.7 % . [facility] Neutrophils (Bld) [#/Vol] 7.3 10*3/uL 1.8 - 7.7 10*3/[facility]L [facility] WBC Manual cnt (Syn fld) 68.8 % . [facility] NRBC 0.1 /100{WBC} 0 - 0.5 /100{WBC} [facility] Platelet mean volume (Bld) [Entitic vol] 8.9 fL 6.3 - 10.[address] [facility] Platelets (Bld) [#/Vol] 167 10*3/uL 150 - 450 10*3/uL [facility] RBC LM.HPF (Urine sed) [#/Area] 5.32 10*6/uL High 3.60 - 5.00 10*6/uL [facility] WBC (Bld) [#/Vol] 10.7 10*3/uL 3.8 - 11.6 10*3/uL [facility] WBC LM.HPF (Urine sed) [#/Area] 10.7 10*3/uL 3.8 - 11.6 10*3/uL [facility] Calcium [Mass/volume] in Ser um or PlasmaOrdered By: Nataliya Jane on 04-14-2024 Calcium [Mass/Vol] Calcium [Mass/volume ] in Serum or Plasma 8.6-10.3 [facility] Carbon dioxide, total [Moles /volume] in Serum or PlasmaOrdered By: Nataliya Jane on 04-14-2024 CO2 [Moles/Vol] Carbon dioxide, tota l [Moles/volume] in Serum or Plasma 21.0-31.0 [facility] Chloride [Moles/volume] in S elliot or PlasmaOrdered By: Nataliya Jane on 04-14-2024 Chloride [Moles/Vol] Chloride [Moles/vol ume] in Serum or Plasma 98-107 [facility] Complete Blood Count Auto Di ffon 04-14-2024 Basophils (Bld) [#/Vol] 0.1 10*3/uL Normal 0.0-0.2 [facility] Comment on above: Result Comment: PERF ORMED BY: [place] [address] PATHOLOGIST [employer] JUDGE LE MACE M.D. Performed By: #### C MP, LDH, PATH SLIDE REV, CBC #### [address] Basophils/100 WBC (Bld) 0.6 % Normal . [facility] Comment on above: Performed By: #### C MP, LDH, PATH SLIDE REV, CBC #### [address] Eosinophils (Bld) [#/Vol] 0.3 10*3/uL Normal 0.0-0.45 [facility] Comment on above: Performed By: #### C MP, LDH, PATH SLIDE REV, CBC #### [address] Eosinophils/100 WBC (Bld) 2.6 % Normal . [facility] Comment on above: Performed By: #### C MP, LDH, PATH SLIDE REV, CBC #### [address] Erythrocyte distribution width (RBC) [Ratio] 15.0 % Normal 11.9-15.3 [facility] Comment on above: Performed By: #### C MP, LDH, PATH SLIDE REV, CBC #### [address] Hematocrit (Bld) [Volume fraction] 49.7 % High 34.0-46.4 [facility] Comment on above: Performed By: #### C MP, LDH, PATH SLIDE REV, CBC #### [place] [address] [place] Hemoglobin (Bld) [Mass/Vol] 16.6 g/dL High 11.8-15.4 [facility] Comment on above: Performed By: #### C MP, LDH, PATH SLIDE REV, CBC #### [place] [address] [place] Lymphocytes (Bld) [#/Vol] 2.1 10*3/uL Normal 1.00-4.8 [facility] Comment on above: Performed By: #### C MP, LDH, PATH SLIDE REV, CBC #### [address] Lymphocytes/100 WBC (Bld) 19.3 % Normal . [facility] Comment on above: Performed By: #### C MP, LDH, PATH SLIDE REV, CBC #### [address] MCH (RBC) [Entitic mass] 31.2 pg Normal 24.7-34.3 [facility] Comment on above: Performed By: #### C MP, LDH, PATH SLIDE REV, CBC #### [address] MCV (RBC) [Entitic vol] 93.4 fL Normal 80-100 [facility] Comment on above: Performed By: #### C MP, LDH, PATH SLIDE REV, CBC #### [address] Mean Corpuscular HGB Conc 33.4 g/dL Normal 32.0-35.0 [facility] Comment on above: Performed By: #### C MP, LDH, PATH SLIDE REV, CBC #### [address] Monocytes (Bld) [#/Vol] 0.9 10*3/uL High 0.0-0.8 [facility] Comment on above: Performed By: #### C MP, LDH, PATH SLIDE REV, CBC #### [address] Monocytes/100 WBC (Bld) 8.7 % Normal . [facility] Comment on above: Performed By: #### C MP, LDH, PATH SLIDE REV, CBC #### [address] Neutrophils (Bld) [#/Vol] 7.3 10*3/uL Normal 1.8-7.7 [facility] Comment on above: Performed By: #### C MP, LDH, PATH SLIDE REV, CBC #### [address] Neutrophils/100 WBC (Bld) 68.8 % Normal . [facility] Comment on above: Performed By: #### C MP, LDH, PATH SLIDE REV, CBC #### [address] NRBC% 0.1 /100{WBC} Normal 0-0.5 [facility] Comment on above: Performed By: #### C MP, LDH, PATH SLIDE REV, CBC #### [address] Platelet mean volume (Bld) [Entitic vol] 8.9 fL Normal 6.3-10.7 [facility] Comment on above: Performed By: #### C MP, LDH, PATH SLIDE REV, CBC #### [address] Platelets (Bld) [#/Vol] 167 10*3/uL Normal 150-450 [facility] Comment on above: Performed By: #### C MP, LDH, PATH SLIDE REV, CBC #### [address] RBC (Bld) [#/Vol] 5.32 10*6/uL High 3.60-5.[address] [facility] Comment on above: Performed By: #### C MP, LDH, PATH SLIDE REV, CBC #### [address] WBC (Bld) [#/Vol] 10.7 10*3/uL Normal 3.8-11.[address] [facility] Comment on above: Performed By: #### C MP, LDH, PATH SLIDE REV, CBC #### [address] Comprehensive Metabolic Pane juan 04-14-2024 Albumin [Mass/Vol] 4.1 g/dL Normal 3.5-5.7 [facility] Comment on above: Performed By: #### L IPID, BMP #### [address] Albumin/Globulin [Mass ratio] 1.2 {ratio} Normal [facility] Comment on above: Performed By: #### L IPID, BMP #### [address] ALP [Catalytic activity/Vol] 92 U/L Normal 34-104 [facility] Comment on above: Performed By: #### L IPID, BMP #### [address] ALT [Catalytic activity/Vol] 20 U/L Normal 7-52 [facility] Comment on above: Performed By: #### L IPID, BMP #### [address] Anion gap [Moles/Vol] 16.1 mmol/L High 6.0-15.0 [facility] Comment on above: Performed By: #### L IPID, BMP #### [address] AST [Catalytic activity/Vol] 26 U/L Normal 13-39 [facility] Comment on above: Performed By: #### L IPID, BMP #### [address] Bilirubin [Mass/Vol] 0.6 mg/dL Normal 0.3-1.0 [facility] Comment on above: Performed By: #### L IPID, BMP #### [address] Calcium [Mass/Vol] 10.0 mg/dL Normal 8.6-10.3 [facility] Comment on above: Performed By: #### L IPID, BMP #### [place] [address] [place] Chloride [Moles/Vol] 101 mmol/L Normal 98-107 [facility] Comment on above: Performed By: #### L IPID, BMP #### [address] CO2 [Moles/Vol] 26.9 mmol/L Normal 21.0-31.0 [facility] Comment on above: Performed By: #### L IPID, BMP #### [address] Creatinine [Mass/Vol] 0.83 mg/dL Normal 0.60-1.20 [facility] Comment on above: Performed By: #### L IPID, BMP #### [address] Creatinine Clr Calc Pharmacy 78.05 Normal [facility] Comment on above: Performed By: #### L IPID, BMP #### [place] [address] [place] GFR/1.73 sq M.predicted MDRD (S/P/Bld) [Vol rate/Area] mL/min/{1.73_m2} Normal [facility] Comment on above: Performed By: #### L IPID, BMP #### [address] Globulin (S) [Mass/Vol] 3.3 g/dL Normal [facility] Comment on above: Performed By: #### L IPID, BMP #### [address] Glucose [Mass/Vol] 169 mg/dL High 70-100 [facility] Comment on above: Result Comment: [place] Glucose Reference Range is dependent on time and content of last meal. Glucose of more than 200 mg/dL in a nonstressed, ambulatory subject supports the diagnosis of Diabetes Mellitus. ADA recommended reference range Performed By: #### L IPID, BMP #### [place] [address] [place] Potassium [Moles/Vol] 4.0 mmol/L Normal 3.5-5.1 [facility] Comment on above: Performed By: #### L IPID, BMP #### [address] Protein [Mass/Vol] 7.4 g/dL Normal 6.4-8.9 [facility] Comment on above: Performed By: #### L IPID, BMP #### [facility] [address] Sodium [Moles/Vol] 140 mmol/L Normal 136-145 [facility] Comment on above: Performed By: #### L IPID, BMP #### [facility] [address] [place] [id number] [facility] Urea nitrogen [Mass/Vol] 8 mg/dL Normal 7-25 [facility] Comment on above: Performed By: #### L IPID, BMP #### [facility] [address] [place] [id number] [facility] Comprehensive metabolic pane juan 04-14-2024 Albumin [Mass/Vol] 4.1 g/dL 3.5 - 5.7 g/dL [facility] Albumin/Globulin [Mass ratio] 1.2 {ratio} [facility] ALP [Catalytic activity/Vol] 92 U/L 34 - 104 U/L [facility] ALT [Catalytic activity/Vol] 20 U/L 7 - 52 U/L [facility] Anion gap [Moles/Vol] 16.1 mmol/L High 6.0 - 15.0 meq/L [facility] AST [Catalytic activity/Vol] 26 U/L 13 - 39 U/L [facility] Bilirubin [Mass/Vol] 0.6 mg/dL 0.3 - 1 .0 mg/dL [facility] Calcium [Mass/Vol] 10 mg/dL 8.6 - 10. 3 mg/dL [facility] [facility] Chloride [Moles/Vol] 101 mmol/L 98 - 10 7 mmol/L [facility] CO2 [Moles/Vol] 26.9 mmol/L 21.0 - 31.0 mmol/L [facility] Creatinine (U) [Mass/Vol] 0.83 mg/dL 0.60 - 1.20 mg/dL [facility] CREATININE CLR CALC PHARMACY 78.05 [facility] ESTIMATED GFR mL/Min [facility] Globulin (S) [Mass/Vol] 3.3 g/dL [facility] Glucose [Mass/Vol] 169 mg/dL High 70 - 100 mg/dL [facility] Comment on above: Random Glucose Refer ence Range is dependent on time and content of last meal. Glucose of more than 200 mg/dL in a nonstressed, ambulatory subject supports the diagnosis of Diabetes Mellitus. ADA recommended reference range Interpretation and review of laboratory results Abnormal [facility] Potassium [Moles/Vol] 4 mmol/L 3.5 - 5.1 mmol/L [facility] Protein [Mass/Vol] 7.4 g/dL 6.4 - 8.9 g/dL [facility] Sodium [Moles/Vol] 140 mmol/L 136 - 145 mmol/L [facility] Urea nitrogen [Mass/Vol] 8 mg/dL 7 - 25 mg/dL [facility] Creatinine [Mass/volume] in Serum or PlasmaOrdered By: Nataliya Jane on 04-14-2024 Creatinine [Mass/Vol] Creatinine [Mass/v olume] in Serum or Plasma 0.60-1.20 [facility] Globulin Calc (S) [Mass/Vol] Ordered By: Nataliya Jane on 04-14-2024 Globulin (S) [Mass/Vol] Serum globulin measurement by calculation (mass/volume) [facility] Glucose [Mass/volume] in Ser um or PlasmaOrdered By: Nataliya Jane on 04-14-2024 Glucose [Mass/Vol] Glucose [Mass/volume ] in Serum or Plasma High 70-100 [facility] Comment on above: ADA recommended refe rence rangeRandom Glucose Reference Range is dependent on time and content of last meal. Glucose of more than 200 mg/dL in a nonstressed, ambulatory subject supports the diagnosis of Diabetes Mellitus. Juan 04-14-2024 L ---- Specimen: [id number] Received: 04/14/24 Status: FIDEL Knox Num: [id number] Spec Type: Impression Subm Dr: Nataliya Jane APRN Tissues: PATHPER Procedures: PATHREVIEW Age/ Patient Sex Location Account Attending Physician Taye Gay 68/F XT [id number] Nataliya Jane APRN SPEC NUM: [id number] RECD: 04/14/24 STATUS: FIDEL CELY NUM: [id number] RONNY: 04/14/24- SUBM DR: Nataliya Jane APRN ENTERED: 04/14/[address]: CHRISTOPHER TYPE: Impression DEPT: [place] ENTERED BY: [id number] RECV BY: [id number] ORDERED: PATHREVIEW ORDERED: PATHREVIEW Pathologist Review Abnormal [...] chronic smoking. Clinical correlations are suggested CPT: 70362 Specimen: [id number] Received: 04/14/24 Status: FIDEL Leontaylor Num: [id number] Spec Type: Impression Subm Dr: Nataliya Jane APRN Tissues: PATHPER Procedures: PATHREVIEW Patient: Taye Gay [id number] (Continued) Specimen: [id number] Received: 04/14/24 (Continued) Signed (signature on file) Nereyda Holt MD 04/15/24 0920 Specimen: [id number] Received: 04/14/24 Status: FIDEL Knox Num: [id number] Spec Type: Impression Subm Dr: Nataliya Jane APRN Tissues: PATHPER Procedures: PATHREVIEW Patient: Taye Gay [id number] (Continued) Specimen: [id number] Received: 04/14/24 (Continued) CBC [...] % Lymp % (Auto) 19.3 . % Kane % (Auto) 8.7 . % Eos % (Auto) 2.6 . % Baso % (Auto) 0.6 . % NRBC% 0.1 0-0.5 /100 WBC Neut # (Auto) 7.3 1.8-7.7 x10E3/uL Lymph # (Auto) 2.1 1.00-4.8 x10E3/uL Kane # (Auto) 0.9 H 0.0-0.8 x10E3/uL Eos # (Auto) 0.3 0.0-0.45 x10E3/uL Baso# (Auto) 0.1 0.0-0.2 x10E3/uL Specimen: [id number] Received: 04/14/24 Status: FIDEL Knox Num: [id number] Spec Type: Impression Subm Dr: Nataliya Jane APRN Tissues: PATHPER Procedures: PATHREVIEW Patient: Taye Gay [id number] (Continued) Signed (signature on file) Tyrone-Fer Holt MD 04/15/24 0920 Normal [facility] LDH Lactate Dehydrogenaseon 04-14-2024 LDH Lactate Dehydrogenase 155 U/L Normal 140-271 [facility] Comment on above: Result Comment: PERF ORMED BY: [place] [address] PATHOLOGIST MAGISTERIAL DISTRICT JUDGE LE MACE M.D. Performed By: #### L IPID, BMP #### [address] [facility] Lactate to pyruvate reac tion [Catalytic activity/Vol]on 04-14-2024 LDH LACTATE DEHYDROGENASE 155 U/L 140 - 271 U/L [facility] Lactate dehydrogenase [Enzym atic activity/volume] in Serum or Plasma by Lactate to pyOrdered By: Nataliya Lucinda on 04-14-2024 LDH Lactate to pyruvate reaction [Catalytic activity/Vol] Lactate dehydrogenase [Enzymatic activity/volume] in Serum or Plasma by Lactate to py 140-271 [facility] No Panel Informationon 04-14 [facility] No Panel InformationOrdered By: Nataliya Lucinda on 04-14-2024 Estimated GFR (CKD-EPI) > 60.0 mL/Min [facility] Creatinine Clearance (Chem 78.05 [facility] Slides for Pathologist Review Ordered path review [facility] PATHOLOGIST SLIDE REVIEW ([facility])on 04-14-2024 PATHOLOGIST SLIDE REVIEW Ordered Path Review [facility] Pathologist Slide Reviewon 1 06-15-2023 Pathologist Slide Review Ordered Path Review Normal [facility] Comment on above: Result Comment: PERF ORMED BY: [address] [address] PATHOLOGIST [employer]ISTERIAL DISTRICT JUDGE LE MACE M.D. Performed By: #### L IPID, BMP #### [facility] [address] [id number] [facility] Potassium [Moles/volume] in Serum or PlasmaOrdered By: Nataliya Lucinda on 04-14-2024 Potassium [Moles/Vol] Potassium [Moles/v olume] in Serum or Plasma 3.5-5.1 [facility] Protein [Mass/volume] in Ser um or PlasmaOrdered By: Nataliya Lucinda on 04-14-2024 Protein [Mass/Vol] Protein [Mass/volume ] in Serum or Plasma 6.4-8.9 [facility] Serum or plasma albumin/glob ulin mass ratioOrdered By: Nataliya Lucinda on 04-14-2024 Albumin/Globulin [Mass ratio] Serum or plasma albumin/globulin mass ratio [facility] Serum or plasma anion gap de terminationOrdered By: Nataliya Lucinda on 04-14-2024 Anion gap [Moles/Vol] Serum or plasma an ion gap determination High 6.0-15.0 [facility] Sodium [Moles/volume] in Ser um or PlasmaOrdered By: Nataliya Jane on 04-14-2024 Sodium [Moles/Vol] Sodium [Moles/volume ] in Serum or Plasma 136-145 [facility] Urea nitrogen [Mass/volume] in Serum or PlasmaOrdered By: Nataliya Lucinda on 04-14-2024 Urea nitrogen [Mass/Vol] Urea nitrogen [Mass/volume] in Serum or Plasma 7-25 [facility] ECG 12 [place] 03-25-2024 Normal sinus rhythm [facility] Work Phone: [facility] Work Phone: Aerobic cultureOrdered By: Vamsi Fritz on 01-07-2024 Bacteria identified Aer cx Nom (Unsp spec) [facility] Superficial Wound Cultureon 01-07-2024 Superficial Wound Culture Plantar right foot Result Tab Codes Light Normal Skin Erna 2 Days PERFORMED BY: [facility] [address] [place] [address] PATHOLOGIST MAGISTERIAL DISTRICT JUDGE SADAF STANTON M.D. Normal [facility] Comment on above: Performed By: #### C MP, MG, PHOS, CBC #### [facility] [address] [id number] [facility] US venous duplex LE BIon US venous duplex LE BI [facility] [place] [address] [id number] Ultrasound Report Signed Patient: Taye Gay MR#: [id number] 19 : 1955 Acct:[id number] Age/Sex: 68 / F ADM Date: 01/06/24 Loc: Room: Type: [facility] Attending Dr: Roland Faust MD Ordering Provider: [...] Tray Nava MD01/07/2024 9:46 AM Dictation Location: [place] [address] Tech: Carmen Motley Transcribed By: AMY 01/07/24945 Dictated By: Tray Nava MD 01/07/24945 Signed By: 01/07/24945 Normal [facility] ECG 12 [place] 12-16-2023 [facility] Work Phone: Normal sinus rhythm [facility] Work Phone: ANAon 12-07-2023 ANTINUCLEAR ABS, IFA Positive Critically abnormal . [facility] Comment on above: Negative <1:80 Borderline 1:80 Positive >1:80 Interpretation and review of laboratory results Abnormal [facility] NOTE 1 Comment . [facility] Comment on above: Pattern Potential Di charlese Association Homogeneous Systemic Lupus Erythematosus, Drug Induced Systemic Lupus Erythematosus, Chronic Autoimmune hepatitis, Juvenile Idiopathic Arthritis Speckled Sjogren Syndrome, Systemic Lupus Erythematosus, Subacute Cutaneous Lupus, Lupus, Congenital Heart Block, Mixed Connective Tissue Disease, Scleroderma-diffuse, Scleroderma-Autoimmune Myositis Overlap Syndrome, Systemic Lupus Jaoiaugmqrjih-Ecgbeddwvee-Tjnfpelotj Myositis Overlap Syndrome, Systemic Autoimmune Rheumatic Disease, [...] Cytopenias, Linear Scleroderma, Antiphospholipid Syndrome Performed at: [address] [id number] [employer]: Yuri Osullivan PhD, Phone: [phone] SPECKLED PATTERN 1:[address] [facility] Comment on above: ICAP nomenclature: A C-2,4,5,29 ANCA PROFILE (ANCA+MPO+PR3)o n 12-07-2023 ANTIMYELOPEROXIDASE (MPO) ABS <0.2 0.0 - 0.9 [facility] ATYPICAL PANCA <1:20 Neg:<1:20 [facility] Comment on above: The atypical pANCA p attern has been observed in a significant percentage of patients with ulcerative colitis, primary sclerosing cholangitis and autoimmune hepatitis. Performed at: [address] [id number] [employer]: Christine Pham MD, Phone: [phone] Performed at: [address] [id number] [employer]: Yuri Osullivan PhD, Phone: [phone] CYTOPLASMIC (C-ANCA) <1:20 Neg:<1:20 [facility] PERINUCLEAR (P-ANCA) <1:20 Neg:<1:20 [facility] Comment on above: The presence of posi tive fluorescence exhibiting P-ANCA or C-ANCA patterns alone is not specific for the diagnosis of Marni's Granulomatosis (WG) or microscopic polyangiitis. Decisions about treatment should not be based solely on ANCA IFA results. The International ANCA Group Consensus recommends follow up testing of positive sera with both MI- 3 and MPO-ANCA enzyme immunoassays. As many as 5% serum samples are positive only by EIA. Ref. AM J Clin Pathol 1999;111:507-513. PROTEINASE 3 (PR3) ANTIBODIES <0.2 0.0 - 0.9 [facility] ANTI-CENTROMERE B ANTIBODIES on 12-07-2023 ANTI-CENTROMERE B ANTIBODIES <0.2 0.0 - 0.9 [facility] Comment on above: Performed at: [address] [id number] [employer]: Yuri Osullivan PhD, Phone: [phone] ANTI-DSDNA(DBL)ABon 12-07-19 ANTI-DSDNA(DBL)AB 1 0 - 9 [facility] Comment on above: Negative <5 Equivocal 5 - 9 Positive >9 ANTI-RNPon 12-07-2023 ANTI-BUFFING WHEEL FORMER AUTOMATIC 0.3 0.0 - 0.9 [facility] ANTIRIBOSOMAL P ANTIBODIESon 12-07-2023 ANTIRIBOSOMAL P ANTIBODIES <0.2 0.0 - 0.9 [facility] Anti-Fritz antibodyon 2023 ANTI-FRITZ ANTIBODIES <0.2 0.0 - 0.9 [facility] HISTONE ANTIBODIESon 024 HISTONE ANTIBODIES 0.6 0.0 - 0.9 [facility] Comment on above: Negative <1.0 Weak Positive 1.0 - 1.5 Moderate Positive 1.6 - 2.5 Strong Positive >2.5 Performed at: [address] [id number] [employer]: Christine Pham MD, Phone: [phone] SUSHMA-1 ANTIBODYon 12-07-2023 SUSHMA-1 ANTIBODY <0.2 0.0 - 0.9 [facility] Mitochondrial antibodies, M2 on 12-07-2023 MITOCHONDRIAL (M2) ANTIBODY <20.0 0.0 - 20.0 [facility] Comment on above: Negative 0.0 - 20.0 Equivocal 20.1 - 24.9 Positive >24.9 Mitochondrial (M2) Antibodies are found in 90-96% of patients with primary biliary cirrhosis. Performed at: [address] [id number] [employer]: Yuri Osullivan PhD, Phone: [phone] No Panel Informationon 12-06 [facility] SCLERODERMA 70 ANTIBODIESon 12-07-2023 SCLERODERMA 70 ANTIBODIES <0.2 0.0 - 0.9 [facility] SJOGRENS ANTI-SSA/SSBon 11-27 SS-A/RO SJOGRENS ANTIBODY <0.2 0.0 - 0.9 [facility] SS-B/LA SJOGRENS ANTIBODY <0.2 0.0 - 0.9 [facility] SRP AUTOANTIBODIESon 024 SRP (SIGNAL RECOG. PARTICLE) Negative Negative [facility] Comment on above: This test was develo ped and its performance characteristics determined by [facility]. It has not been cleared or approved by the Food and Drug Administration. Performed at: [facility] [employer] [address] [place] [id number] Uncrater: Juan Cruz MD, Phone: [phone] Alanine aminotransferase [En zymatic activity/volume] in Serum or PlasmaOrdered By: Tolu Salinas on 12-02-2023 ALT [Catalytic activity/Vol] 31 U/L 7-52 [facility] Albumin [Mass/volume] in Ser um or Plasma by Bromocresol green (BCG) dye binding methoOrdered By: Tolu Salinas on 12-02-2023 Albumin BCG dye [Mass/Vol] 4.2 g/dL 3.5-5.7 [facility] Alkaline phosphatase [Enzyma tic activity/volume] in Serum or PlasmaOrdered By: Tolu Salinas on 12-02-2023 ALP [Catalytic activity/Vol] 75 U/L 34-104 [facility] Aspartate aminotransferase [ Enzymatic activity/volume] in Serum or PlasmaOrdered By: Tolu Salinas on 12-02-2023 AST [Catalytic activity/Vol] 37 U/L 13-39 [facility] Basophil percentageOrdered B y: Oz Kincaid on 12-02-2023 Basophil percentage 96 ug/dL 80-158 [facility] Comment on above: This test was develo ped and its performance characteristicsdetermined by [facility]. It has not been cleared orapproved by the Food and Drug Administration. Detection Limit = 5Performed at: [facility] [id number] Director: Christine Pham MD, Phone: [phone] Basophil percentage 2 ug/L 0-9 [facility] Comment on above: This test was develo ped and its performance characteristicsdetermined by [facility]. It has not been cleared orapproved by the Food and Drug Administration. Detection Limit = 1 Bilirubin.total [Mass/volume ] in Serum or PlasmaOrdered By: Tolu Salinas on 12-02-2023 Bilirubin [Mass/Vol] 0.4 mg/dL 0.3-1.0 [facility] Blood lead detectionOrdered By: Oz Kincaid on 12-02-2023 Lead Ql (Bld) <1.0 ug/dL 0.0-3.4 [facility] Comment on above: Testing performed by Inductively coupled plasma/MassSpectrometry.Analysis by inductively coupled plasma/massspectrometry (ICP/MS)This test was developed and its performance characteristicsdetermined by [facility]. It has not been cleared orapproved by the Food and Drug Administration. Environmental Exposure: WHO Recommendation <5.0 Occupational Exposure: OSHA Lead Std 40.0 BOB 30.0 Detection Limit = 1.0Performed at: [facility] [address] [id number] Director: Yuri Osullivan PhD, Phone: [phone] Blood mercury measurement (m ass/volume)Ordered By: Oz Kincaid on 12-02-2023 Mercury (Bld) [Mass/Vol] <1.0 ug/L 0.0-14.9 [facility] Comment on above: This test was develo ped and its performance characteristicsdetermined by [facility]. It has not been cleared orapproved by the Food and Drug Administration. Detection Limit = 1.0Performed at: [facility] [address] [id number] Director: Christine Pham MD, Phone: [phone] Calcium [Mass/volume] in Ser um or PlasmaOrdered By: Tolu Salinas on 12-02-2023 Calcium [Mass/Vol] 9.9 mg/dL 8.6-10.3 [facility] Carbon dioxide, total [Moles /volume] in Serum or PlasmaOrdered By: Tolu Salinas on 12-02-2023 CO2 [Moles/Vol] 32.0 mmol/L High 21.0-31.0 [facility] Chloride [Moles/volume] in S elliot or PlasmaOrdered By: Tolu Salinas on 12-02-2023 Chloride [Moles/Vol] 103 mmol/L 98-107 [facility] Creatinine [Mass/volume] in Serum or PlasmaOrdered By: Tolu Salinas on 12-02-2023 Creatinine [Mass/Vol] 0.97 mg/dL 0.60-1.20 [facility] Globulin Calc (S) [Mass/Vol] Ordered By: Tolu Salinas on 12-02-2023 Globulin (S) [Mass/Vol] 2.7 g/dL [facility] Glucose [Mass/volume] in Ser um or PlasmaOrdered By: Tolu Salinas on 12-02-2023 Glucose [Mass/Vol] 114 mg/dL High 70-100 [facility] Comment on above: ADA recommended refe rence [...] Ag IA Ql Non-Reactive Non Reactive [facility] Comment on above: HIV-1/HIV-2 antibodi es and HIV-1 p24 antigen were NOTdetected. There is no laboratory evidence of HIV infection.HIV NegativePerformed at: [facility] [id number] Director: Yuri Osullivan PhD, Phone: [phone] Hepatitis B virus surface Ag [Presence] in Serum or Plasma by ImmunoassayOrdered By: Oz Kincaid on 12-02-2023 HBV surface Ag IA Ql Negative Negative [facility] Hepatitis C virus IgG Ab [Pr esence] in Serum or Plasma by ImmunoassayOrdered By: Oz Kincaid on 12-02-2023 HCV IgG IA Ql Non-Reactive Non Reactive [facility] Hepatitis C virus RNA [Units /volume] (viral load) in Serum or Plasma by TEJINDER with probOrdered By: Oz Kincaid on 12-02-2023 HCV RNA TEJINDER+probe Qn N/A [facility] Hepatitis C virus RNA [log u nits/volume] (viral load) in Serum or Plasma by TEJINDER withOrdered By: Oz Kincaid on 12-02-2023 HCV RNA TEJINDER+probe [Log units/Vol] N/A [facility] Lactate dehydrogenase [Enzym atic activity/volume] in Serum or Plasma by Lactate to pyOrdered By: Oz Kincaid on 12-02-2023 LDH Lactate to pyruvate reaction [Catalytic activity/Vol] 156 U/L 140-271 [facility] Magnesium [Mass/volume] in S elliot or PlasmaOrdered By: Tolu Salinas on 12-02-2023 Magnesium [Mass/Vol] 2.0 mg/dL 1.9-2.7 [facility] No Panel InformationOrdered By: Oz Kincaid on 12-02-2023 Miscellaneous Test 2 See comment [facility] Comment on above: See report. Scanned copy available in EMR. Hepatitis A IgM Antibody Negative Negative [facility] Hepatitis B Core IgM Antibody Negative Negative [facility] Hepatitis C Interpretation Comment . [facility] Comment on above: Not infected with HC V unless early or acute infection issuspected (which may be delayed in an immunocompromisedindividual), or other evidence exists to indicate HCVinfection.Performed at: [facility] [address] [id number] Director: Yuri Osullivan PhD, Phone: [phone] Miscellaneous Test See comment [facility] Comment on above: See report. Scanned copy available in EMR. Whole Blood Zinc 768 ug/dL 440-860 [facility] Comment on above: This test was develo ped and its performance characteristicsdetermined by [facility]. It has not been cleared orapproved by the Food and Drug Administration.Performed at: [facility] [address] [id number] Director: Christine Pham MD, Phone: [phone] No Panel InformationOrdered By: Tolu Salinas on 12-02-2023 Estimated GFR (CKD-EPI) > 60.0 mL/Min [facility] Creatinine Clearance (Chem N/A [facility] Potassium [Moles/volume] in Serum or PlasmaOrdered By: Tolu Salinas on 12-02-2023 Potassium [Moles/Vol] 4.5 mmol/L 3.5-5.1 [facility] Protein [Mass/volume] in Ser um or PlasmaOrdered By: Tolu Salinas on 12-02-2023 Protein [Mass/Vol] 6.9 g/dL 6.4-8.9 [facility] Serum angiotensin converting enzyme (VITA) measurementOrdered By: Oz Kincaid on 12-02-2023 Angiotensin converting enzyme [Catalytic activity/Vol] 53 U/L 1482 [facility] Comment on above: Performed at: [facility] [address] [id number] Director: Yuri Osullivan PhD, Phone: [phone] Serum cryoglobulin detection Ordered By: Oz Kincaid on 12-02-2023 Cryoglobulin Ql (S) Comment None detected [facility] Comment on above: None Detected at 72 hoursThis test was developed and its performance characteristicsdetermined by [facility]. It has not been cleared orapproved by the Food and Drug Administration.Performed at: [facility] [id number] Director: Yuri Osullivan PhD, Phone: [phone] Serum or plasma albumin/glob ulin mass ratioOrdered By: Tolu Salinas on 12-02-2023 Albumin/Globulin [Mass ratio] 1.6 {ratio} [facility] Serum or plasma anion gap de terminationOrdered By: Tolu Salinas on 12-02-2023 Anion gap [Moles/Vol] 8.5 mmol/L 6.0-15.0 [facility] Serum or plasma ceruloplasmi n measurement (mass/volume)Ordered By: Oz Kincaid on 12-02-2023 Ceruloplasmin [Mass/Vol] 26.8 mg/dL 19.0-39.0 [facility] Comment on above: Performed at: [employer] [address] [id number] Director: Yuri Osullivan PhD, Phone: [phone] Serum or plasma complement C 3 measurement (mass/volume)Ordered By: Oz Kincaid on 12-02-2023 Complement C3 [Mass/Vol] 147 mg/dL 82-167 [facility] Comment on above: Performed at: [address] [id number] Director: Yuri Osullivan PhD, Phone: [phone] Serum or plasma complement C 4 measurement (mass/volume)Ordered By: Oz Kincaid on 12-02-2023 Complement C4 [Mass/Vol] 32 mg/dL 12-38 [facility] Sodium [Moles/volume] in Ser um or PlasmaOrdered By: Tolu Salinas on 12-02-2023 Sodium [Moles/Vol] 139 mmol/L 136-145 [facility] Thallium [Mass/volume] in Se rum or PlasmaOrdered By: Oz Kincaid on 12-02-2023 Thallium [Mass/Vol] <1.0 ng/mL <5.0 [facility] Comment on above: Thallium concentrati ons greater than 300 ng/ml are consistent with acute toxicity. Urine is the preferred specimen for assessment of thallium exposure. Thallium analysis performed by inductively coupled plasma / mass spectrometry (ICP/MS).This test was developed and its performance characteristicsdetermined by [facility]. It has not been cleared or approvedby the Food and Drug Administration.Performed at: [employer] [address] [id number] Director: Whitney Arevalo [facility], Phone: [phone] Urea nitrogen [Mass/volume] in Serum or PlasmaOrdered By: Tolu Salinas on 12-02-2023 Urea nitrogen [Mass/Vol] 11 mg/dL 7-25 [facility] LACTATE AND PYRUVATEon 11-27 Interpretation and review of laboratory results Abnormal [facility] LACTIC ACID, PLASMA 27.1 mg/dL High 4.8 - 25 .7 mg/dL [facility] PYRUVIC ACID, BLOOD 0.7 mg/dL 0.3 - 0. 7 mg/dL [facility] Comment on above: This test was develo ped and its performance characteristics determined by [facility]. It has not been cleared or approved by the Food and Drug Administration. Performed at: [facility] [address] [place], [place] [id number] [employer]: Yuri Osullivan PhD, Phone: [phone] Performed at: [facility] [address] [id number] [employer]: Christine Pham MD, Phone: [phone] [facility] DNA double strand Ab [Units/ volume] in SerumOrdered By: Oz Kincaid on 11-26-2023 DNA double strand Ab Qn (S) 1 [IU]/mL 0-9 [facility] Comment on above: Negative <5 Equivoca l 5 - 9 Positive >9 Myeloperoxidase Ab [Units/vo lume] in Serum by ImmunoassayOrdered By: Oz Kincaid on 11-26-2023 Myeloperoxidase Ab IA Qn (S) <0.2 units 0.0-0.9 [facility] No Panel InformationOrdered By: Oz Kincaid on 11-26-2023 Anti-Nuclear Antibody Comment 2 Comment . [facility] Comment on above: Pattern Potential Di sease Association Homogeneous Systemic Lupus Erythematosus, Drug Induced Systemic Lupus Erythematosus, Chronic Autoimmune hepatitis, Juvenile Idiopathic Arthritis Speckled Sjogren Syndrome, Systemic Lupus Erythematosus, Subacute Cutaneous Lupus, Lupus, Congenital Heart Block, Mixed Connective Tissue Disease, Scleroderma-diffuse, Scleroderma-Autoimmune Myositis Overlap Syndrome, Systemic Lupus Fltyzeicjtmgp-Uidcpestevx-Rrtvkflhha Myositis Overlap Syndrome, Systemic Autoimmune Rheumatic Disease, [...] Cytopenias, Linear Scleroderma, Antiphospholipid Syndrome Performed at: [facility] [id number] Director: Yuri Osullivan PhD, Phone: [phone] Atypical p-ANCA <1:20 titer Neg:<1:20 [facility] Comment on above: The atypical pANCA p attern has been observed in asignificant percentage of patients with ulcerative colitis,primary sclerosing cholangitis and autoimmune hepatitis.Performed at: [facility]) [employer] [id number] Director: Christine Pham MD, Phone: [phone] at: [employer] [id number] Director: Yuri Osullivan PhD, Phone: [phone] Perinuclear ANCA (p-ANCA) Antibody <1:20 titer Neg:<1:20 [facility] Comment on above: The presence of posi tive fluorescence exhibiting P-ANCA orC-ANCA patterns alone is not specific for the diagnosis ofWegener's Granulomatosis (WG) or microscopic polyangiitis.Decisions about treatment should not be based solely onANCA IFA results. The International ANCA Group Consensusrecommends follow up testing of positive sera with both MI-3 and MPO-ANCA enzyme immunoassays. As many as 5% serumsamples are positive only by EIA. Ref. AM J Clin Iamxpn7319;111:507-513. Plasma Lactic Acid, Venous 27.1 mg/dL High 4.8-25.7 [facility] Pyruvic Acid 0.7 mg/dL 0.3-0.7 [facility] Comment on above: This test was devTerm[employer] Software Labso ped and its performance characteristicsdetermined by [employer]. It has not been cleared orapproved by the Food and Drug Administration.Performed at: [employer] [address] [id number] Director: Yuri Osullivan PhD, Phone: [phone] at: [facility] [employer] [address] [id number] Director: Christine Pham MD, Phone: [phone] [employer] Antibody 0.3 AI 0.0-0.9 [facility] Scl-70 (Scleroderma) Antibody <0.2 AI 0.0-0.9 [facility] Signal Recognition Particle (SRP) Negative Negative [facility] Comment on above: This test was develo ped and its performance characteristicsdetermined by [employer]. It has not been cleared orapproved by the Food and Drug Administration.Performed at: [employer] [facility] [employer] [address] [id number] Director: Juan Cruz MD, Phone: [phone] Proteinase 3 Ab [Units/volum e] in Serum by ImmunoassayOrdered By: Oz Kincaid on 11-26-2023 Proteinase 3 Ab IA Qn (S) <0.2 units 0.0-0.9 [facility] Ribosomal P Ab [Units/volume ] in SerumOrdered By: Oz Kincaid on 11-26-2023 Ribosomal P Ab Qn (S) <0.2 AI 0.0-0.9 [facility] Serum Sushma-1 extractable nucle ar antibody assay (units/volume)Ordered By: Oz Kincaid on 11-26-2023 Sushma-1 extractable nuclear Ab Qn (S) <0.2 AI 0.0-0.9 [facility] Serum Sjogrens syndrome-A ex tractable nuclear antibody assay (units/volume)Ordered By: Oz Kincaid on 11-26-2023 Sjogrens syndrome-A extractable nuclear Ab Qn (S) <0.2 AI 0.0-0.9 [facility] Serum Sjogrens syndrome-B ex tractable nuclear antibody assay (units/volume)Ordered By: Oz Kincaid on 11-26-2023 Sjogrens syndrome-B extractable nuclear Ab Qn (S) <0.2 AI 0.0-0.9 [facility] Serum Fritz extractable nucl ear antigen (ARIELLE) antibody assay (units/volume)Ordered By: Oz Kincaid on 11-26-2023 Fritz extractable nuclear Ab Qn (S) <0.2 AI 0.0-0.9 [facility] Serum centromere protein B a ntibody assay (units/volume)Ordered By: Oz Kincaid on 11-26-2023 Centromere protein B Ab Qn (S) <0.2 AI 0.0-0.9 [facility] Comment on above: Performed at: [address] [id number] Director: Yuri Osullivan PhD, Phone: [phone] Serum classic neutrophil cyt oplasmic antibody titer by immunofluorescenceOrdered By: Oz Kincaid on 11-26-2023 Neutrophil cytoplasmic Ab.classic IF (S) [Titer] <1:20 titer Neg:<1:20 [facility] Serum histone IgG antibody a ssay by immunoassay (units/volume)Ordered By: Oz Kincaid on 11-26-2023 Histone IgG IA Qn (S) 0.6 Units 0.0-0.9 [facility] Comment on above: Negative <1.0 Weak P ositive 1.0 - 1.5 Moderate Positive 1.6 - 2.5 Strong Positive >2.5Performed at: [facility]) [employer] [id number] Director: Christine Pham MD, Phone: [phone] Serum homogeneous pattern an tinuclear antibody (BEATRICE) titerOrdered By: Oz Kincaid on 11-26-2023 Homogenous nuclear Ab pattern (S) [Titer] N/A [facility] Serum mitochondria M2 IgG an tibody assay (units/volume)Ordered By: Oz Kincaid on 11-26-2023 Mitochondria M2 IgG Qn (S) <20.0 Units 0.0-20.0 [facility] Comment on above: Negative 0.0 - 20.0 Equivocal 20.1 - 24.9 Positive >24.9Mitochondrial (M2) Antibodies are found in 90-96% ofpatients with primary biliary cirrhosis.Performed at: [employer] [id number] Director: Yuri Osullivan PhD, Phone: [phone] Serum nuclear antibody titer Ordered By: Oz Kincaid on 11-26-2023 Nuclear Ab (S) [Titer] Positive Abnormal . [facility] Comment on above: Negative <1:80 Kev stanley 1:80 Positive >1:80 Serum speckled pattern antin uclear antibody (BEATRICE) titerOrdered By: Oz Kincaid on 11-26-2023 Speckled nuclear Ab pattern (S) [Titer] 1:320 High . [facility] Comment on above: ICAP nomenclature: A C-2,4,5,29 Aspartate aminotransferase [ Enzymatic activity/volume] in Serum or PlasmaOrdered By: Jonas Ch on 11-15-2023 AST [Catalytic activity/Vol] 45 U/L High 13-39 [facility] Calcium [Mass/volume] in Ser um or PlasmaOrdered By: Jonas Ch on 11-15-2023 Calcium [Mass/Vol] 10.7 mg/dL High 8.6-10.3 [facility] Carbon dioxide, total [Moles /volume] in Serum or PlasmaOrdered By: Jonas Ch on 11-15-2023 CO2 [Moles/Vol] 27.7 mmol/L 21.0-31.0 [facility] Chloride [Moles/volume] in S elliot or PlasmaOrdered By: Jonas Ch on 11-15-2023 Chloride [Moles/Vol] 102 mmol/L 98-107 [facility] Creatinine [Mass/volume] in Serum or PlasmaOrdered By: Jonas Ch on 11-15-2023 Creatinine [Mass/Vol] 1.02 mg/dL 0.60-1.20 [facility] Creatinine [Mass/volume] in UrineOrdered By: Angelique Russell on 11-15-2023 Creatinine (U) [Mass/Vol] 123.00 mg/dL [facility] Comment on above: No reference range e stablished Glucose [Mass/volume] in Ser um or PlasmaOrdered By: Jonas Ch on 11-15-2023 Glucose [Mass/Vol] 158 mg/dL High 70-100 [facility] Comment on above: ADA recommended refe rence rangeRandom Glucose Reference Range is dependent on time and content of last meal. Glucose of more than 200 mg/dL in a nonstressed, ambulatory subject supports the diagnosis of Diabetes Mellitus. Microalbumin [Mass/volume] i n UrineOrdered By: Angelique Russell on 11-15-2023 Albumin DL <= 20 mg/L (U) [Mass/Vol] 3.0 mg/dL High 0.0-1.8 [facility] No Panel InformationOrdered By: Jonas Ch on 11-15-2023 Estimated GFR (CKD-EPI) > 60.0 mL/Min [facility] Creatinine Clearance (Chem N/A [facility] Potassium [Moles/volume] in Serum or PlasmaOrdered By: Jonas Ch on 11-15-2023 Potassium [Moles/Vol] 4.1 mmol/L 3.5-5.1 [facility] Serum or plasma anion gap de terminationOrdered By: Jonas Ch on 11-15-2023 Anion gap [Moles/Vol] 12.4 mmol/L 6.0-15.0 [facility] Sodium [Moles/volume] in Ser um or PlasmaOrdered By: Jonas Ch on 11-15-2023 Sodium [Moles/Vol] 138 mmol/L 136-145 [facility] Thyrotropin [Units/volume] i n Serum or PlasmaOrdered By: Jonas Ch on 11-15-2023 TSH Qn 3.39 m[IU]/L 0.45-5.33 [facility] Urea nitrogen [Mass/volume] in Serum or PlasmaOrdered By: Jonas Ch on 11-15-2023 Urea nitrogen [Mass/Vol] 20 mg/dL 11-20 [facility] Urine microalbumin/creatinin e mass ratioOrdered By: Angelique Russell on 11-15-2023 Albumin/Creatinine DL <= 20 mg/L (U) [Mass ratio] 24.4 mg/g 0.0-30.0 [facility] Comment on above: 30-300 mg/g indicate s an increased risk for diabetic nephropathy. Greater than 300 mg/g is consistent with clinical nephropathy. (Am. J. Kidney Disease 1995, 25:107) No Panel Informationon 11-13 Bedside Glucose 139 [facility] ECG 12 Leadon 11-13-2023 Normal sinus rhythm Normal EKG QTc 457 ms [facility] Work Phone: Basophils Auto (Bld) [#/Vol] Ordered By: Chaka Frye on 11-12-2023 Basophils (Bld) [#/Vol] 0.0 10*3/uL 0.0-0.2 [facility] Basophils/100 WBC Auto (Bld) Ordered By: Chaka Frye on 11-12-2023 Basophils/100 WBC (Bld) 0.5 % . [facility] Calcium [Mass/volume] in Ser um or PlasmaOrdered By: Chaka Frye on 11-12-2023 Calcium [Mass/Vol] 9.5 mg/dL 8.6-10.3 [facility] Carbon dioxide, total [Moles /volume] in Serum or PlasmaOrdered By: Chaka Frye on 11-12-2023 CO2 [Moles/Vol] 30.0 mmol/L 21.0-31.0 [facility] Chloride [Moles/volume] in S elliot or PlasmaOrdered By: Chaka Frye on 11-12-2023 Chloride [Moles/Vol] 103 mmol/L 98-107 [facility] Creatinine [Mass/volume] in Serum or PlasmaOrdered By: Chaka Frye on 11-12-2023 Creatinine [Mass/Vol] 0.98 mg/dL 0.60-1.20 [facility] Eosinophils Auto (Bld) [#/Vo l]Ordered By: Chaka Frye on 11-12-2023 Eosinophils (Bld) [#/Vol] 0.4 10*3/uL 0.0-0.45 [facility] Eosinophils/100 WBC Auto (Bl d)Ordered By: Chaka Frye on 11-12-2023 Eosinophils/100 WBC (Bld) 5.2 % . [facility] Erythrocyte distribution wid th Auto (RBC) [Ratio]Ordered By: Chaka Frye on 11-12-2023 Erythrocyte distribution width (RBC) [Ratio] 14.0 % 11.9-15.3 [facility] Glucose Glucometer (BldC) [M ass/Vol]Ordered By: Chaka Frye on 11-12-2023 Glucose [Mass/Vol] 137 mg/dL [facility] Comment on above: Random Glucose Refer ence Range is dependent on time and content of last meal. Glucose of more than 200 mg/dL in a nonstressed, ambulatory subject supports the diagnosis of Diabetes Mellitus. Glucose [Mass/volume] in Ser um or PlasmaOrdered By: Chaka Frye on 11-12-2023 Glucose [Mass/Vol] 102 mg/dL High 70-100 [facility] Comment on above: ADA recommended refe rence rangeRandom Glucose Reference Range is dependent on time and content of last meal. Glucose of more than 200 mg/dL in a nonstressed, ambulatory subject supports the diagnosis of Diabetes Mellitus. Hematocrit Auto (Bld) [Volum e fraction]Ordered By: Chaka Frye on 11-12-2023 Hematocrit (Bld) [Volume fraction] 44.6 % 34.0-46.4 [facility] Hemoglobin [Mass/volume] in BloodOrdered By: Chaka Frye on 11-12-2023 Hemoglobin (Bld) [Mass/Vol] 14.6 g/dL 11.8-15.4 [facility] Leukocytes [#/volume] correc deepika for nucleated erythrocytes in Blood by Automated counOrdered By: Chaka Frye on 11-12-2023 WBC corrected for nucl RBC Auto (Bld) [#/Vol] 7.4 10*3/uL 3.8-11.6 [facility] Lymphocytes Auto (Bld) [#/Vo l]Ordered By: Chaka Frye on 11-12-2023 Lymphocytes (Bld) [#/Vol] 2.3 10*3/uL 1.00-4.8 [facility] Lymphocytes/100 WBC Auto (Bl d)Ordered By: Chaka Frye on 11-12-2023 Lymphocytes/100 WBC (Bld) 30.8 % . [facility] MCH Auto (RBC) [Entitic mass ]Ordered By: Chaka Frye on 11-12-2023 MCH (RBC) [Entitic mass] 32.2 pg 24.7-34.3 [facility] MCHC Auto (RBC) [Mass/Vol]Or dered By: Chaka Frye on 11-12-2023 MCHC (RBC) [Mass/Vol] 32.8 g/dL 32.0-35.0 [facility] MCV Auto (RBC) [Entitic vol] Ordered By: Chaka Frye on 11-12-2023 MCV (RBC) [Entitic vol] 98.1 fL 80-100 [facility] Magnesium [Mass/volume] in S elliot or PlasmaOrdered By: Chaka Frye on 11-12-2023 Magnesium [Mass/Vol] 1.9 mg/dL 1.9-2.7 [facility] Monocytes Auto (Bld) [#/Vol] Ordered By: Chaka Frye on 11-12-2023 Monocytes (Bld) [#/Vol] 0.8 10*3/uL 0.0-0.8 [facility] Monocytes/100 WBC Auto (Bld) Ordered By: Chaka Frye on 11-12-2023 Monocytes/100 WBC (Bld) 11.0 % . [facility] Neutrophils Auto (Bld) [#/Vo l]Ordered By: Chaka Frye on 11-12-2023 Neutrophils (Bld) [#/Vol] 3.9 10*3/uL 1.8-7.7 [facility] Neutrophils/100 WBC Auto (Bl d)Ordered By: Chaka Frye on 11-12-2023 Neutrophils/100 WBC (Bld) 52.5 % . [facility] No Panel InformationOrdered By: Chaka Frye on 11-12-2023 Estimated GFR (CKD-EPI) > 60.0 mL/Min [facility] Creatinine Clearance (Chem 63.39 [facility] Nucleated erythrocytes [Pres ence] in Blood by Automated countOrdered By: Chaka Frye on 11-12-2023 Nucleated RBC Auto Ql (Bld) 0.1 /100{WBC} 0-0.5 [facility] Platelet mean volume Auto (B ld) [Entitic vol]Ordered By: Chaka Frye on 11-12-2023 Platelet mean volume (Bld) [Entitic vol] 9.1 fL 6.3-10.7 [facility] Platelets Auto (Bld) [#/Vol] Ordered By: Chaka Frye on 11-12-2023 Platelets (Bld) [#/Vol] 155 10*3/uL 150-450 [facility] Potassium [Moles/volume] in Serum or PlasmaOrdered By: Chaka Frye on 11-12-2023 Potassium [Moles/Vol] 4.4 mmol/L 3.5-5.1 [facility] RBC Auto (Bld) [#/Vol]Ordere d By: Chaka Frye on 11-12-2023 RBC (Bld) [#/Vol] 4.54 10*6/uL 3.60-5.00 [facility] Serum or plasma anion gap de terminationOrdered By: Chaka Frye on 11-12-2023 Anion gap [Moles/Vol] 10.4 mmol/L 6.0-15.0 [facility] Sodium [Moles/volume] in Ser um or PlasmaOrdered By: Chaka Frye on 11-12-2023 Sodium [Moles/Vol] 139 mmol/L 136-145 [facility] Urea nitrogen [Mass/volume] in Serum or PlasmaOrdered By: Chaka Frye on 11-12-2023 Urea nitrogen [Mass/Vol] 18 mg/dL 7-25 [facility] WBC Auto (Bld) [#/Vol]Ordere d By: Chaka Frye on 11-12-2023 WBC (Bld) [#/Vol] 7.4 10*3/uL 3.8-11.6 [facility] Glucose mean value [Mass/vol ume] in Blood Estimated from glycated hemoglobinOrdered By: Jluis Campos on 11-11-2023 Average glucose Estimated from glycated hemoglobin (Bld) [Mass/Vol] 143 mg/dL [facility] Hemoglobin A1c percentageOrd ered By: Jluis Campos on 11-11-2023 HbA1c (Bld) [Mass fraction] 6.6 % High 4.3-5.6 [facility] Comment on above: Increased risk for d iabetes: 5.7 - 6.4diabetes: >6.4glycemic control for adults with diabetes: <7.0 LACTATE AND PYRUVATEon 11-10 LACTIC ACID, PLASMA . [facility] Comment on above: Test not performed. Supernatant is required. CONTACTED YOUR FACILity on 11-05-2023 PYRUVIC ACID, BLOOD . [facility] Comment on above: Test not performed [facility] No Panel InformationOrdered By: Kirt Renae on 11-11-2023 [employer] Antibody 0.2 AI 0.0-0.9 [facility] Serum Sushma-1 extractable nucle ar antibody assay (units/volume)Ordered By: Kirt Renae on 11-11-2023 Sushma-1 extractable nuclear Ab Qn (S) <0.2 AI 0.0-0.9 [facility] Comment on above: Performed at: [facility] [address] [id number] Director: Yuri Osullivan PhD, Phone: [phone] Serum Sjogrens syndrome-A ex tractable nuclear antibody assay (units/volume)Ordered By: Kirt Renae on 11-11-2023 Sjogrens syndrome-A extractable nuclear Ab Qn (S) <0.2 AI 0.0-0.9 [facility] Serum Sjogrens syndrome-B ex tractable nuclear antibody assay (units/volume)Ordered By: Kirt Renae on 11-11-2023 Sjogrens syndrome-B extractable nuclear Ab Qn (S) <0.2 AI 0.0-0.9 [facility] Serum or plasma thyroglobuli n antibody assay (units/volume)Ordered By: Kirt Renae on 11-11-2023 Thyroglobulin Ab Qn [IU]/mL 0.0-0.9 [facility] Comment on above: Thyroglobulin Antibo dy measured by Parad[employer] Technology SolutionsMethodologyIt should be noted that the presence of thyroglobulinantibodies may not be pathogenic nor diagnostic, especiallyat very low levels. The assay home health assistant has found thatfour percent of individuals without evidence of thyroiddisease or autoimmunity will have positive TgAb levels upto 4 IU/mL.Performed at: [facility] [address] [id number] Director: Yuri Osullivan PhD, Phone: [phone] Serum or plasma thyroperoxid ase antibody assay (units/volume)Ordered By: Kirt Renae on 11-11-2023 TPO Ab Qn [IU]/mL 0-34 [facility] Thyroxine (T4) free [Mass/vo lume] in Serum or PlasmaOrdered By: Kirt Renae on 11-11-2023 Free T4 [Mass/Vol] 0.83 ng/dL 0.61-1.12 [facility] Triiodothyronine (T3) Free [ Mass/volume] in Serum or PlasmaOrdered By: Kirt Renae on 11-11-2023 Free T3 [Mass/Vol] 2.60 pg/mL 2.50-3.90 [facility] Alanine aminotransferase [En zymatic activity/volume] in Serum or PlasmaOrdered By: Rl Villavicencio on 11-10-2023 ALT [Catalytic activity/Vol] 19 U/L 7-52 [facility] Albumin [Mass/volume] in Ser um or Plasma by Bromocresol green (BCG) dye binding methoOrdered By: Rl Villavicencio on 11-10-2023 Albumin BCG dye [Mass/Vol] 4.2 g/dL 3.5-5.7 [facility] Alkaline phosphatase [Enzyma tic activity/volume] in Serum or PlasmaOrdered By: Rl Villavicencio on 11-10-2023 ALP [Catalytic activity/Vol] 60 U/L 34-104 [facility] Aspartate aminotransferase [ Enzymatic activity/volume] in Serum or PlasmaOrdered By: Rl Villavicencio on 11-10-2023 AST [Catalytic activity/Vol] 29 U/L 13-39 [facility] Bacteria [Presence] in Urine by AutomatedOrdered By: Rl Villavicencio on 11-10-2023 Bacteria Auto Ql (U) 1+ [HPF] High None Seen [facility] Basophils Auto (Bld) [#/Vol] Ordered By: Rl Villavicencio on 11-10-2023 Basophils (Bld) [#/Vol] 0.1 10*3/uL 0.0-0.2 [facility] Basophils/100 WBC Auto (Bld) Ordered By: Rl Villavicencio on 11-10-2023 Basophils/100 WBC (Bld) 0.9 % . [facility] Bilirubin Test strip Ql (U)O rdered By: Rl Villavicencio on 11-10-2023 Bilirubin Ql (U) Negative Negative [facility] Bilirubin.total [Mass/volume ] in Serum or PlasmaOrdered By: Rl Villavicencio on 11-10-2023 Bilirubin [Mass/Vol] 0.4 mg/dL 0.3-1.0 [facility] C reactive protein [Mass/vol ume] in Serum or PlasmaOrdered By: Kirt Renae on 11-10-2023 CRP [Mass/Vol] < 0.5 mg/dL 0.0-0.5 [facility] Calcium [Mass/volume] in Ser um or PlasmaOrdered By: Rl Villavicencio on 11-10-2023 Calcium [Mass/Vol] 9.6 mg/dL 8.6-10.3 [facility] Carbon dioxide, total [Moles /volume] in Serum or PlasmaOrdered By: Rl Villavicencio on 11-10-2023 CO2 [Moles/Vol] 25.4 mmol/L 21.0-31.0 [facility] Chloride [Moles/volume] in S elliot or PlasmaOrdered By: Rl Villavicencio on 11-10-2023 Chloride [Moles/Vol] 105 mmol/L 98-107 [facility] Color Auto (U)Ordered By: Ekta Villavicencio on 11-10-2023 Color (U) Light-yellow Yellow [facility] Creatine kinase [Enzymatic a ctivity/volume] in Serum or PlasmaOrdered By: Rl Villavicencio on 11-10-2023 CK [Catalytic activity/Vol] 69 U/L 30-223 [facility] Creatinine [Mass/volume] in Serum or PlasmaOrdered By: Rl Villavicencio on 11-10-2023 Creatinine [Mass/Vol] 0.93 mg/dL 0.60-1.20 [facility] Eosinophils Auto (Bld) [#/Vo l]Ordered By: Rl Villavicencio on 11-10-2023 Eosinophils (Bld) [#/Vol] 0.3 10*3/uL 0.0-0.45 [facility] Eosinophils/100 WBC Auto (Bl d)Ordered By: Rl Villavicencio on 11-10-2023 Eosinophils/100 WBC (Bld) 3.7 % . [facility] Epithelial cells.squamous [# /area] in Urine sediment by Automated countOrdered By: Rl Villavicencio on 11-10-2023 Epithelial cells.squamous Auto (Urine sed) [#/Area] 5-9 [HPF] High 0-2 [facility] Erythrocyte distribution wid th Auto (RBC) [Ratio]Ordered By: Rl Villavicencio on 11-10-2023 Erythrocyte distribution width (RBC) [Ratio] 13.5 % 11.9-15.3 [facility] Erythrocyte sedimentation ra te by Photometric methodOrdered By: Kirt Renae on 11-10-2023 ESR Photometric method (Bld) [Velocity] 40 mm/hr High 0-29 [facility] Erythrocytes [#/area] in Uri ne sediment by Automated countOrdered By: Rl Villavicencio on 11-10-2023 RBC Auto (Urine sed) [#/Area] 5-9 [HPF] High 0-4 [facility] Folate [Mass/volume] in Seru m or PlasmaOrdered By: Kirt Renae on 11-10-2023 Folate [Mass/Vol] 19.6 ng/mL >5.9 [facility] Comment on above: Folate reference ran ge: >5.9 ng/mlThe WHO technical consultation on folate and vitamin [id number] has determined that folate concentrations lessthan 4 ng/ml are considered deficient. Globulin Calc (S) [Mass/Vol] Ordered By: Rl Villavicencio on 11-10-2023 Globulin (S) [Mass/Vol] 2.9 g/dL [facility] Glucose [Mass/volume] in Ser um or PlasmaOrdered By: Rl Villavicencio on 11-10-2023 Glucose [Mass/Vol] 95 mg/dL 70-100 [facility] Comment on above: ADA recommended refe rence rangeRandom Glucose Reference Range is dependent on time and content of last meal. Glucose of more than 200 mg/dL in a nonstressed, ambulatory subject supports the diagnosis of Diabetes Mellitus. Glucose [Mass/volume] in Uri ne by Test stripOrdered By: Rl Villavicencio on 11-10-2023 Glucose Test strip (U) [Mass/Vol] 1000 mg/dL High Normal [facility] Hematocrit Auto (Bld) [Volum e fraction]Ordered By: Rl Villavicencio on 11-10-2023 Hematocrit (Bld) [Volume fraction] 44.9 % 34.0-46.4 [facility] Hemoglobin Test strip Ql (U) Ordered By: Rl Villavicencio on 11-10-2023 Hemoglobin Ql (U) Negative Negative [facility] Hemoglobin [Mass/volume] in BloodOrdered By: Rl Villavicencio on 11-10-2023 Hemoglobin (Bld) [Mass/Vol] 15.0 g/dL 11.8-15.4 [facility] Hyaline casts [#/area] in Ur ine sediment by Automated countOrdered By: Rl Villavicencio on 11-10-2023 Hyaline casts Auto (Urine sed) [#/Area] None [LPF] 0-8 [facility] Ketones Test strip Ql (U)Ord ered By: Rl Villavicencio on 11-10-2023 Ketones Ql (U) Negative Negative [facility] Leukocyte clumps [Presence] in Urine by AutomatedOrdered By: Rl Villavicencio on 11-10-2023 Leukocyte clumps Auto Ql (U) Occasional [LPF] High None Seen [facility] Leukocyte esterase [Presence ] in Urine by Test stripOrdered By: Rl Villavicencio on 11-10-2023 Leukocyte esterase Test strip Ql (U) 4+ High Negative [facility] Leukocytes [#/area] in Urine sediment by Automated countOrdered By: Rl Villavicencio on 11-10-2023 WBC Auto (Urine sed) [#/Area] 20-49 [HPF] High 0-4 [facility] Leukocytes [#/volume] correc deepika for nucleated erythrocytes in Blood by Automated counOrdered By: Rl Villavicencio on 11-10-2023 WBC corrected for nucl RBC Auto (Bld) [#/Vol] 8.5 10*3/uL 3.8-11.6 [facility] Lymphocytes Auto (Bld) [#/Vo l]Ordered By: Rl Villavicencio on 11-10-2023 Lymphocytes (Bld) [#/Vol] 2.2 10*3/uL 1.00-4.8 [facility] Lymphocytes/100 WBC Auto (Bl d)Ordered By: Rl Villavicencio on 11-10-2023 Lymphocytes/100 WBC (Bld) 26.0 % . [facility] MCH Auto (RBC) [Entitic mass ]Ordered By: Rl Villavicencio on 11-10-2023 MCH (RBC) [Entitic mass] 32.6 pg 24.7-34.3 [facility] MCHC Auto (RBC) [Mass/Vol]Or dered By: Rl Villavicencio on 11-10-2023 MCHC (RBC) [Mass/Vol] 33.3 g/dL 32.0-35.0 [facility] MCV Auto (RBC) [Entitic vol] Ordered By: Rl Villavicencio on 11-10-2023 MCV (RBC) [Entitic vol] 97.8 fL 80-100 [facility] Magnesium [Mass/volume] in S elliot or PlasmaOrdered By: Rl Villavicencio on 11-10-2023 Magnesium [Mass/Vol] 1.7 mg/dL Low 1.9-2.7 [facility] Monocyte distribution width [Entitic volume] in Blood by AutomatedOrdered By: Rl Villavicencio on 11-10-2023 Monocyte distribution width Auto (Bld) [Entitic vol] 19.74 % 0.00-20.00 [facility] Monocytes Auto (Bld) [#/Vol] Ordered By: Rl Villavicencio on 11-10-2023 Monocytes (Bld) [#/Vol] 0.7 10*3/uL 0.0-0.8 [facility] Monocytes/100 WBC Auto (Bld) Ordered By: Rl Villavicencio on 11-10-2023 Monocytes/100 WBC (Bld) 8.2 % . [facility] Neutrophils Auto (Bld) [#/Vo l]Ordered By: Rl Villavicencio on 11-10-2023 Neutrophils (Bld) [#/Vol] 5.2 10*3/uL 1.8-7.7 [facility] Neutrophils/100 WBC Auto (Bl d)Ordered By: Rl Villavicencio on 11-10-2023 Neutrophils/100 WBC (Bld) 61.2 % . [facility] Nitrite Test strip Ql (U)Ord ered By: Rl Villavicencio on 11-10-2023 Nitrite Ql (U) Negative Negative [facility] No Panel InformationOrdered By: Kirt Renae on 11-10-2023 Bedside Glucose Comment Glu2: cleaned meter [facility] No Panel InformationOrdered By: Rl Villavicencio on 11-10-2023 Estimated GFR (CKD-EPI) > 60.0 mL/Min [facility] Creatinine Clearance (Chem 66.28 [facility] Nucleated erythrocytes [Pres ence] in Blood by Automated countOrdered By: Rl Villavicencio on 11-10-2023 Nucleated RBC Auto Ql (Bld) 0.1 /100{WBC} 0-0.5 [facility] Platelet mean volume Auto (B ld) [Entitic vol]Ordered By: Rl Villavicencio on 11-10-2023 Platelet mean volume (Bld) [Entitic vol] 8.7 fL 6.3-10.7 [facility] Platelets Auto (Bld) [#/Vol] Ordered By: Rl Villavicencio on 11-10-2023 Platelets (Bld) [#/Vol] 149 10*3/uL Low 150-450 [facility] Potassium [Moles/volume] in Serum or PlasmaOrdered By: Rl Villavicencio on 11-10-2023 Potassium [Moles/Vol] 4.6 mmol/L 3.5-5.1 [facility] Comment on above: Hemolysis is present at a level that could interfere with the result.Contact lab if redraw is required Protein Test strip (U) [Mass /Vol]Ordered By: Rl Villavicencio on 11-10-2023 Protein (U) [Mass/Vol] Negative Negative Fi [facility] Protein [Mass/volume] in Ser um or PlasmaOrdered By: Rl Villavicencio on 11-10-2023 Protein [Mass/Vol] 7.1 g/dL 6.4-8.9 [facility] RBC Auto (Bld) [#/Vol]Ordere d By: Rl Villavicencio on 11-10-2023 RBC (Bld) [#/Vol] 4.59 10*6/uL 3.60-5.00 [facility] Serum or plasma albumin/glob ulin mass ratioOrdered By: Rl Villavicencio on 11-10-2023 Albumin/Globulin [Mass ratio] 1.4 {ratio} [facility] Serum or plasma anion gap de terminationOrdered By: Rl Villavicencio on 11-10-2023 Anion gap [Moles/Vol] 11.2 mmol/L 6.0-15.0 [facility] Sodium [Moles/volume] in Ser um or PlasmaOrdered By: Rl Villavicencio on 11-10-2023 Sodium [Moles/Vol] 137 mmol/L 136-145 [facility] Specific gravity Test strip (U) [Rel density]Ordered By: Rl Villavicencio on 11-10-2023 Specific gravity (U) [Rel density] 1.007 1.001-1.03 0 [facility] Thyrotropin [Units/volume] i n Serum or PlasmaOrdered By: Jluis Campos on 11-10-2023 TSH Qn 5.73 m[IU]/L High 0.45-5.33 [facility] Urea nitrogen [Mass/volume] in Serum or PlasmaOrdered By: Rl Villavicencio on 11-10-2023 Urea nitrogen [Mass/Vol] 14 mg/dL 7-25 [facility] Urine appearanceOrdered By: Rl Villavicencio on 11-10-2023 Appearance (U) Clear Clear [facility] Urine culture routineOrdered By: Rl Villavicencio on 11-10-2023 Bacteria identified Cx Nom (U) 2 Days [facility] Urobilinogen Test strip (U) [Mass/Vol]Ordered By: Rl Villavicenico on 11-10-2023 Urobilinogen (U) [Mass/Vol] Normal mg/dL Normal [facility] Vitamin B12 ser/plasOrdered By: Kirt Renae on 11-10-2023 Cobalamin (Vitamin B12) [Mass/Vol] 306 pg/mL 180-914 [facility] Vitamin D+Metabolites [Mass/ volume] in Serum or PlasmaOrdered By: Jluis Campos on 11-10-2023 Vitamin D+Metabolites [Mass/Vol] 61.3 ng/mL 30-100 [facility] Comment on above: Hemolysis is present [...] 11-10-2023 WBC (Bld) [#/Vol] 8.5 10*3/uL 3.8-11.6 [facility] pH Test strip (U)Ordered By: Rl Villavicencio on 11-10-2023 pH (U) 6.0 [pH] 5.0-9.0 [facility] Glucose Glucometer (BldC) [M ass/Vol]Ordered By: OSORIO WHITE on 11-09-2023 Glucose [Mass/Vol] 139 mg/dL [facility] Comment on above: Random Glucose Refer ence Range is dependent on time and content of last meal. Glucose of more than 200 mg/dL in a nonstressed, ambulatory subject supports the diagnosis of Diabetes Mellitus. Carbon dioxide, total [Moles /volume] in Serum or PlasmaOrdered By: Jonas Ch on 11-05-2023 CO2 [Moles/Vol] 28.6 mmol/L 21.0-31.0 [facility] Chloride [Moles/volume] in S elliot or PlasmaOrdered By: Jonas Ch on 11-05-2023 Chloride [Moles/Vol] 104 mmol/L 98-107 [facility] Potassium [Moles/volume] in Serum or PlasmaOrdered By: Jonas Ch on 11-05-2023 Potassium [Moles/Vol] 4.6 mmol/L 3.5-5.1 [facility] Serum or plasma anion gap de terminationOrdered By: Jonas Ch on 11-05-2023 Anion gap [Moles/Vol] 11.0 mmol/L 6.0-15.0 [facility] Sodium [Moles/volume] in Ser um or PlasmaOrdered By: Jonas Ch on 11-05-2023 Sodium [Moles/Vol] 139 mmol/L 136-145 [facility] Alanine aminotransferase [En zymatic activity/volume] in Serum or PlasmaOrdered By: Oz Kincaid on 10-30-2023 ALT [Catalytic activity/Vol] 23 U/L 7-52 [facility] Albumin [Mass/volume] in Ser um or PlasmaOrdered By: Oz Kincaid on 10-30-2023 Albumin [Mass/Vol] 4.2 g/dL 2.9-4.4 [facility] Albumin/Protein.total in 24 hour Urine by ElectrophoresisOrdered By: Oz Kincaid on 10-30-2023 Albumin Elph (24H U) [Mass fraction] 35.7 % . [facility] Alpha tocopherol [Mass/volum e] in Serum or PlasmaOrdered By: Oz Kincaid on 10-30-2023 Alpha tocopherol [Mass/Vol] 8.7 mg/L Low 9.0-29.0 [facility] Comment on above: This test was develo ped and its performance characteristicsdetermined by [employer]. It has not been cleared orapproved by the Food and Drug Administration. Aspartate aminotransferase [ Enzymatic activity/volume] in Serum or PlasmaOrdered By: Oz Kincaid on 10-30-2023 AST [Catalytic activity/Vol] 26 U/L 13-39 [facility] Borrelia burgdorferi Ab [Int erpretation] in SerumOrdered By: Oz Kincaid on 10-30-2023 B. burgdorferi Ab (S) [Interp] N/A [facility] Borrelia burgdorferi IgG Ab [Presence] in Serum or Plasma by ImmunoassayOrdered By: Oz Kincaid on 10-30-2023 B. burgdorferi IgG IA Ql N/A [facility] Borrelia burgdorferi IgG+IgM Ab [Presence] in Serum by ImmunoassayOrdered By: Oz Kincaid on 10-30-2023 B. burgdorferi IgG+IgM IA Ql (S) Negative Negative [facility] Comment on above: Lyme antibodies not detected. Reflex testing is notindicated.No laboratory evidence of infection with B. burgdorferi(Lyme disease). Negative results may occur in patientsrecently infected (less than or equal to 14 days) with B.burgdorferi. If recent infection is suspected, repeattesting on a new sample collected in 7 to 14 days isrecommended.Performed at: [facility] [address] [id number] Director: Yuri Osullivan PhD, Phone: [phone] Lyme antibodies not detected. Reflex testing is notindicated.No laboratory evidence of infection with B. burgdorferi(Lyme disease). Negative results may occur in patientsrecently infected (less than or equal to 14 days) with B.burgdorferi. If recent infection is suspected, repeattesting on a new sample collected in 7 to 14 days isrecommended.Performed at: [facility] [id number] Director: Yuri Osullivan PhD, Phone: [phone] Lyme antibodies not detected. Reflex testing is [...] in 7 to 14 days isrecommended.Performed at: [facility] [id number] [place], [place] [id number] Director: Yuri Osullivan PhD, Phone: [phone] Borrelia burgdorferi IgM Ab [Presence] in Serum or Plasma by ImmunoassayOrdered By: Oz Kincaid on 10-30-2023 B. burgdorferi IgM IA Ql N/A [facility] C reactive protein [Mass/vol ume] in Serum or Plasma by High sensitivity methodOrdered By: Oz Kincaid on 10-30-2023 CRP High sensitivity method [Mass/Vol] 2.2 mg/L High 0.0-0.9 [facility] Comment on above: Cardiovascular Risk Classification [...] 10-30-2023 CT biopsy 5.0 U/L 3.3-10.3 [facility] Comment on above: Performed at: [address] [id number] Director: Yuri Osullivan PhD, Phone: [phone] Creatine kinase [Enzymatic a ctivity/volume] in Serum or PlasmaOrdered By: Oz Kincaid on 10-30-2023 CK [Catalytic activity/Vol] 46 U/L 30- [facility] Erythrocyte sedimentation ra te by Photometric methodOrdered By: Oz Kincaid on 10-30-2023 ESR Photometric method (Bld) [Velocity] 26 mm/hr 0-29 [facility] Folate [Mass/volume] in Seru m or PlasmaOrdered By: Oz Kincaid on 10-30-2023 Folate [Mass/Vol] 34.0 ng/mL >5.9 [facility] Comment on above: Folate reference ran ge: >5.9 ng/mlThe WHO technical consultation on folate and vitamin e63rcicntsnkjbk has determined that folate concentrations lessthan 4 ng/ml are considered deficient. Gamma globulin/Protein.total in 24 hour Urine by ElectrophoresisOrdered By: Oz Kincaid on 10-30-2023 Gamma globulin Elph (24H U) [Mass fraction] 23.2 % . [facility] Gamma-tocopherol measurement (mass/volume)Ordered By: Oz Kincaid on 10-30-2023 Gamma tocopherol [Mass/Vol] 0.7 mg/L 0.5-4.9 [facility] Comment on above: This test was develo ped and its performance characteristicsdetermined by [facility]. It has not been cleared orapproved by the Food and Drug Administration.Reference intervals for alpha and gamma-tocopheroldetermined from National Health and Nutrition ExaminationSurvey, 2082-5055. Individuals with alpha-tocopherol levelsless than 5.0 mg/L are considered vitamin E deficient. Glucose mean value [Mass/vol ume] in Blood Estimated from glycated hemoglobinOrdered By: Oz Kincaid on 10-30-2023 Average glucose Estimated from glycated hemoglobin (Bld) [Mass/Vol] 143 mg/dL [facility] Hemoglobin A1c percentageOrd ered By: Oz Kincaid on 10-30-2023 HbA1c (Bld) [Mass fraction] 6.6 % High 4.3-5.6 [facility] Comment on above: Increased risk for d iabetes: 5.7 - 6.4diabetes: >6.4glycemic control for adults with diabetes: <7.0 IgA [Mass/volume] in Serum o r PlasmaOrdered By: Oz Kincaid on 10-30-2023 IgA [Mass/Vol] 265 mg/dL 87-352 [facility] IgG [Mass/volume] in Serum o r PlasmaOrdered By: Oz Kincaid on 10-30-2023 IgG [Mass/Vol] 1034 mg/dL 586-1602 [facility] IgM [Mass/volume] in Serum o r PlasmaOrdered By: Oz Kincaid on 10-30-2023 IgM [Mass/Vol] 48 mg/dL 26-217 [facility] Comment on above: Performed at: [facility] [address] Director: Yuri Osullivan PhD, Phone: YPlan Immunofixation for UrineOrde red By: Oz Kincaid on 10-30-2023 Interpretation Immunofixation (U) [Interp] See comment . [facility] Comment on above: No monoclonality det ected.Performed at: [facility] [address] [id number] Director: Yuri Osullivan PhD, Phone: [facility]Plan No Panel InformationOrdered By: Oz Kincaid on 10-30-2023 Anti-Nuclear Antibody Comment 2 See comment . [facility] Comment on above: Pattern Potential Di sease Association Homogeneous Systemic Lupus Erythematosus, Drug Induced Systemic Lupus Erythematosus, Chronic Autoimmune hepatitis, Juvenile Idiopathic Arthritis Speckled Sjogren Syndrome, Systemic Lupus Erythematosus, Subacute Cutaneous Lupus, Lupus, Congenital Heart Block, Mixed Connective Tissue Disease, Scleroderma-diffuse, Scleroderma-Autoimmune Myositis Overlap Syndrome, Systemic Lupus Nobplmswpmopw-Wqrlmmbarin-Nprcfgpeet Myositis Overlap Syndrome, Systemic Autoimmune Rheumatic Disease, [...] Cytopenias, Linear Scleroderma, Antiphospholipid Syndrome Performed at: [address] [id number] Director: Christine Pham MD, Phone: [phone] at: [facility] [id number] [place], [place] [id number] Director: Yuri Osullivan PhD, Phone: [phone] Saravanan [place] Corinne montalvo Association Homogeneous Systemic Lupus Erythematosus, Drug Induced Systemic Lupus Erythematosus, Chronic Autoimmune hepatitis, Juvenile Idiopathic Arthritis Speckled Sjogren Syndrome, Systemic Lupus Erythematosus, Subacute Cutaneous Lupus, Lupus, Congenital Heart Block, Mixed Connective Tissue Disease, Scleroderma-diffuse, Scleroderma-Autoimmune Myositis Overlap Syndrome, Systemic Lupus Vkdvjmzdglpsz-Xlgtdkxmvlv-Yismgpkmcs Myositis Overlap Syndrome, Systemic Autoimmune Rheumatic Disease, [...] Cytopenias, Linear Scleroderma, Antiphospholipid Syndrome Performed at: [facility] [address] [id number] Director: Christine Pham MD, Phone: [phone] at: [facility] [id number] [place], [place] [id number] Director: Yuri Osullivan PhD, Phone: [phone] Pattern Potential Disease Association Homogeneous Systemic Lupus Erythematosus, Drug Induced Systemic Lupus Erythematosus, Chronic Autoimmune hepatitis, Juvenile Idiopathic Arthritis Speckled Sjogren Syndrome, Systemic Lupus Erythematosus, Subacute Cutaneous Lupus, Lupus, Congenital Heart Block, Mixed Connective Tissue Disease, Scleroderma-diffuse, Scleroderma-Autoimmune Myositis Overlap Syndrome, Systemic Lupus Ztgnvwibaxeuh-Ratryxpmhrg-Jjibauunil Myositis Overlap Syndrome, Systemic Autoimmune Rheumatic Disease, [...] Cytopenias, Linear Scleroderma, Antiphospholipid Syndrome Performed at: [facility] [address] [id number] Director: Yuri Osullivan PhD, Phone: [phone] at: [facility] [id number] Director: Christine Pham MD, Phone: [phone] --- 11/06/23 1236 ---BEATRICE CALEB Note 1 previously reported as: Pattern Potential Disease Association Homogeneous Systemic Lupus Erythematosus, Drug Induced Systemic Lupus Erythematosus, Chronic Autoimmune hepatitis, Juvenile Idiopathic Arthritis Speckled Sjogren Syndrome, Systemic Lupus Erythematosus, Subacute Cutaneous Lupus, Lupus, Congenital Heart Block, Mixed Connective Tissue Disease, Scleroderma-diffuse, Scleroderma-Autoimmune Myositis Overlap Syndrome, Systemic Lupus Oszeeqlzdcdwv-Zwqxidmrmlp-Efbdmufckh Myositis Overlap Syndrome, Systemic Autoimmune Rheumatic Disease, [...] content not included)... Lactate/Pyruvate Interpretation N/A [facility] Plasma Lactic Acid, Venous See comment . [facility] Comment on above: Test not performed. Supernatant is required.CONTACTED YOUR FACILity on 11-05-2023 Protein Electrophoresis M-Meir Not observed g/dL Not Observed [facility] Protein Electrophoresis Note See comment . [facility] Comment on above: Protein electrophore sis scan will follow via computer,mail, or weighter delivery. Pyruvic Acid See comment . [facility] Comment on above: Test not performed Serum Immunofixation See comment . [facility] Comment on above: No monoclonality det ected. Urine Random Prot Electrophor Note See comment . [facility] Comment on above: Protein electrophore sis scan will follow via computer,mail, or weighter delivery.Performed at: [address] [id number] Director: Yuri Osullivan PhD, Phone: [phone] Whole Blood Zinc 909 ug/dL High 440-860 [facility] Comment on above: This test was develo ped and its performance characteristicsdetermined by [employer]. It has not been cleared orapproved by the Food and Drug Administration.Performed at: [facility] [id number] Director: Chrsitine Pham MD, Phone: [phone] This test was develo ped and its performance characteristicsdetermined by [employer]. It has not been cleared orapproved by the Food and Drug Administration.Performed at: [address] [id number] Director: Christine Pham MD, Phone: [phone] This test was developed and its performance characteristicsdetermined by [employer]. It has not been cleared orapproved by the Food and Drug Administration. --- 11/06/23 1236 ---Zinc,WB previously reported as: 909 H ug/dLThis test was developed and its performance characteristicsdetermined by [employer]. It has not been cleared orapproved by the Food and Drug Administration.Performed at: [address] [id number] Director: Christine Pham MD, Phone: [phone] Protein [Mass/volume] in Ser um or PlasmaOrdered By: Oz Kincaid on 10-30-2023 Protein [Mass/Vol] 7.7 g/dL 6.0-8.5 [facility] Protein [Mass/volume] in Uri neOrdered By: Oz Kincaid on 10-30-2023 Protein (U) [Mass/Vol] 28.8 mg/dL Not Estab. [facility] Protein.monoclonal/Protein.t otal in 24 hour Urine by ElectrophoresisOrdered By: Oz Kincaid on 10-30-2023 Protein.monoclonal Elph (24H U) [Mass fraction] Not observed % Not Observed [facility] Reagin Ab [Presence] in Seru m by RPROrdered By: Oz Kincaid on 10-30-2023 Reagin Ab RPR Ql (S) Non-Reactive Non Reactive [facility] Comment on above: Performed at: [employer] [address] [id number] Director: Yuri Osullivan PhD, Phone: [phone] Serum West Nile virus IgG an tibody detection by immunoassayOrdered By: Oz Kincaid on 10-30-2023 West Nile virus IgG IA Ql (S) Negative Negative [facility] Serum West Nile virus IgM an tibody detection by immunoassayOrdered By: Oz Kincaid on 10-30-2023 West Nile virus IgM IA Ql (S) Negative Negative [facility] Comment on above: Performed at: [facility] [address] [id number] Director: Christine Pham MD, Phone: [phone] Serum globulin measurement ( mass/volume)Ordered By: Oz Kincaid on 10-30-2023 Globulin (S) [Mass/Vol] 3.5 g/dL 2.2-3.9 [facility] Serum homogeneous pattern an tinuclear antibody (BEATRICE) titerOrdered By: Oz Kincaid on 10-30-2023 Homogenous nuclear Ab pattern (S) [Titer] N/A [facility] Serum nuclear antibody titer Ordered By: Oz Kincaid on 10-30-2023 Nuclear Ab (S) [Titer] Positive Abnormal . [facility] Comment on above: Negative <1:80 Borde rline 1:80 Positive >1:80 Serum or plasma albumin/glob ulin mass ratioOrdered By: Oz Kincaid on 10-30-2023 Albumin/Globulin [Mass ratio] 1.2 {ratio} 0.7-1.7 [facility] Serum or plasma alpha 1 glob ulin measurement by electrophoresis (mass/volume)Ordered By: Oz Kincaid on 10-30-2023 Alpha 1 globulin Elph [Mass/Vol] 0.3 g/dL 0.0-0.4 [facility] Serum or plasma alpha 2 glob ulin measurement by electrophoresis (mass/volume)Ordered By: Oz Kincaid on 10-30-2023 Alpha 2 globulin Elph [Mass/Vol] 1.0 g/dL 0.4-1.0 [facility] Serum or plasma beta globuli n measurement by electrophoresis (mass/volume)Ordered By: Oz Kincaid on 10-30-2023 Beta globulin Elph [Mass/Vol] 1.1 g/dL 0.7-1.3 [facility] Serum or plasma ceruloplasmi n measurement (mass/volume)Ordered By: Oz Kincaid on 10-30-2023 Ceruloplasmin [Mass/Vol] 30.1 mg/dL 19.0-39.0 [facility] Comment on above: Performed at: [employer] [address] Director: Yuri Osullivan PhD, Phone: [phone] Serum or plasma gamma globul in measurement by electrophoresis (mass/volume)Ordered By: Oz Kincaid on 10-30-2023 Gamma globulin Elph [Mass/Vol] 1.1 g/dL 0.4-1.8 [facility] Serum or plasma homocysteine measurement (moles/volume)Ordered By: Oz Kincaid on 10-30-2023 Homocysteine [Moles/Vol] 20.7 umol/L High 0.0-17.2 [facility] Comment on above: Performed at: [facility] [id number] Director: Yuri Osullivan PhD, Phone: [phone] Serum or plasma lutropin coleman surement (units/volume)Ordered By: Oz Kincaid on 10-30-2023 Lutropin Qn 60.4 m[IU]/mL High 7.7-58.5 [facility] Comment on above: Adult Female Range F ollicular phase 2.4 - 12.6 Ovulation phase 14.0 - 95.6 Luteal phase 1.0 - 11.4 Postmenopausal 7.7 - 58.5 Serum or plasma methylmalona te measurement (moles/volume)Ordered By: Oz Kincaid on 10-30-2023 Methylmalonate [Moles/Vol] 247 nmol/L 0-378 [facility] Comment on above: This test was develo ped and its performance characteristicsdetermined by [employer]. It has not been cleared orapproved by the Food and Drug Administration.Performed at: [address] [id number] Director: Christine Pham MD, Phone: [phone] This test was develo ped and its performance characteristicsdetermined by [employer]. It has not been cleared orapproved by the Food and Drug Administration.Performed at: [address] [id number] Director: Christine Pham MD, Phone: [phone] This test was developed and its performance characteristicsdetermined by [employer]. It has not been cleared orapproved by the Food and Drug Administration. --- 11/06/23 1236 ---Methylmal Acid previously reported as: 247 nmol/LThis test was developed and its performance characteristicsdetermined by [employer]. It has not been cleared orapproved by the Food and Drug Administration.Performed at: [address] [id number] Director: Christine Pham MD, Phone: [phone] Serum or plasma pyridoxine m easurement (mass/volume)Ordered By: Oz Kincaid on 10-30-2023 Pyridoxine [Mass/Vol] 8.8 ug/L 3.4-65.2 [facility] Comment on above: This test was develo ped and its performance characteristicsdetermined by [employer]. It has not been cleared orapproved by the Food and Drug Administration. Deficiency: <3.4 Marginal: 3.4 - 5.1 Adequate: >5.1Performed at: [facility] [place], [place] [id number] Director: Christine Pham MD, Phone: [phone] Serum or plasma rheumatoid f actor measurement (units/volume)Ordered By: Oz Kincaid on 10-30-2023 Rheumatoid factor Qn [IU]/mL <14.0 [facility] Serum speckled pattern antin uclear antibody (BEATRICE) titerOrdered By: Oz Kincaid on 10-30-2023 Speckled nuclear Ab pattern (S) [Titer] 1:80 . [facility] Comment on above: ICAP nomenclature: A C-2,4,5,29 Thyrotropin [Units/volume] i n Serum or PlasmaOrdered By: Oz Kincaid on 10-30-2023 TSH Qn 6.38 m[IU]/L High 0.45-5.33 [facility] Thyroxine (T4) free [Mass/vo lume] in Serum or PlasmaOrdered By: Oz Kincaid on 10-30-2023 Free T4 [Mass/Vol] 0.89 ng/dL 0.61-1.12 [facility] Urine alpha 1 globulin/total protein by electrophoresisOrdered By: Oz Kincaid on 10-30-2023 Alpha 1 globulin Elph (U) [Mass fraction] 0.4 % . [facility] Urine alpha 2 globulin/total protein ratio by electrophoresisOrdered By: Oz Kincaid on 10-30-2023 Alpha 2 globulin Elph (U) [Mass fraction] 8.9 % . [facility] Urine beta globulin measurem ent by electrophoresis (mass/volume)Ordered By: Oz Kincaid on 10-30-2023 Beta globulin Elph (U) [Mass/Vol] 31.7 % . [facility] Vitamin B12 ser/plasOrdered By: Oz Kincaid on 10-30-2023 Cobalamin (Vitamin B12) [Mass/Vol] 300 pg/mL 180-914 [facility] Glucose Glucometer (BldC) [M ass/Vol]Ordered By: Elva Florian on 09-14-2023 Glucose [Mass/Vol] 134 mg/dL [facility] Comment on above: Random Glucose Refer ence Range is dependent on time and content of last meal. Glucose of more than 200 mg/dL in a nonstressed, ambulatory subject supports the diagnosis of Diabetes Mellitus. No Panel InformationOrdered By: Elva Florian on 09-14-2023 Bedside Glucose Comment Glu2: cleaned meter [facility] Cholesterol [Mass/volume] in Serum or PlasmaOrdered By: Elva Florian on 09-13-2023 Cholesterol [Mass/Vol] 125 mg/dL Low 140-200 Fi [facility] Comment on above: Chol less than 200 m g/dl low riskChol 201-239 mg/dl borderline riskChol 240 mg/dl and greater high risk Cholesterol in LDL Calc [Mas s/Vol]Ordered By: Elva Florina on 09-13-2023 Cholesterol in LDL [Mass/Vol] 59 mg/dL 0-100 [facility] Comment on above: LDL ATP III CLASSIFI CATIONLDL less than 100 mg/dL OptimalLDL 100-129 mg/dL Near or above optimalLDL 130-159 mg/dL Borderline highLDL 160-189 mg/dL HighLDL greater than 189 mg/dL Very high Cholesterol in VLDL Calc [Ma ss/Vol]Ordered By: Elva Florian on 09-13-2023 Cholesterol in VLDL [Mass/Vol] 39 mg/dL [facility] Magnesium [Mass/volume] in S elliot or PlasmaOrdered By: Elva Florian on 09-13-2023 Magnesium [Mass/Vol] 1.6 mg/dL Low 1.9-2.7 [facility] Serum or plasma high density lipoprotein (HDL) cholesterol measurementOrdered By: Elva Florian on 09-13-2023 Cholesterol in HDL [Mass/Vol] 26 mg/dL 23-92 [facility] Comment on above: HDL CHOL ATP-III CLA SSIFICATION Cardiovascular RiskHDL > or equal to 60 mg/dL LOWHDL < 40 mg/dL HIGH Serum or plasma total choles terol/high density lipoprotein (HDL) cholesterol mass ratOrdered By: Elva Florian on 09-13-2023 Cholesterol.total/Monica sterol in HDL [Mass ratio] 4.8 {ratio} <5.0 [facility] Thyrotropin [Units/volume] i n Serum or PlasmaOrdered By: Elva Florian on 09-13-2023 TSH Qn 2.48 m[IU]/L 0.45-5.33 [facility] Triglyceride [Mass/volume] i n Serum or PlasmaOrdered By: Elva Osborndeepa on 09-13-2023 Triglyceride [Mass/Vol] 198 mg/dL High 0-149 [facility] Comment on above: TRIG ATP III [...] aPTT Coag (PPP) [Time] 29.3 s 25.1-36.5 [facility] Comment on above: A hematocrit value g reater than 55% may lead to inaccurate results in coagulation testing. Patients having hematocrit values >55% require a special collection tube for coagulation studies. Please contact the laboratory at [phone] for redraw instructions. Basophils Auto (Bld) [#/Vol] Ordered By: Edgar Valenzuela on 09-12-2023 Basophils (Bld) [#/Vol] 0.1 10*3/uL 0.0-0.2 [facility] Basophils/100 WBC Auto (Bld) Ordered By: Edgar Valenzuela on 09-12-2023 Basophils/100 WBC (Bld) 0.9 % . [facility] Calcium [Mass/volume] in Ser um or PlasmaOrdered By: Edgar Valenzuela on 09-12-2023 Calcium [Mass/Vol] 10.5 mg/dL High 8.6-10.3 [facility] Carbon dioxide, total [Moles /volume] in Serum or PlasmaOrdered By: Edgar Valenzuela on 09-12-2023 CO2 [Moles/Vol] 25.0 mmol/L 21.0-31.0 [facility] Chloride [Moles/volume] in S elliot or PlasmaOrdered By: Edgar Valenzuela on 09-12-2023 Chloride [Moles/Vol] 102 mmol/L 98-107 [facility] Creatine kinase [Enzymatic a ctivity/volume] in Serum or PlasmaOrdered By: Edgar Valenzuela on 09-12-2023 CK [Catalytic activity/Vol] 45 U/L 30-223 [facility] Creatinine [Mass/volume] in Serum or PlasmaOrdered By: Edgar Valenzuela on 09-12-2023 Creatinine [Mass/Vol] 0.84 mg/dL 0.60-1.20 [facility] Eosinophils Auto (Bld) [#/Vo l]Ordered By: Edgar Valenzuela on 09-12-2023 Eosinophils (Bld) [#/Vol] 0.2 10*3/uL 0.0-0.45 [facility] Eosinophils/100 WBC Auto (Bl d)Ordered By: Edgar Valenzuela on 09-12-2023 Eosinophils/100 WBC (Bld) 1.7 % . [facility] Erythrocyte distribution wid th Auto (RBC) [Ratio]Ordered By: Edgar Valenzuela on 09-12-2023 Erythrocyte distribution width (RBC) [Ratio] 12.7 % 11.9-15.3 [facility] Glucose [Mass/volume] in Ser um or PlasmaOrdered By: Edgar Valenzuela on 09-12-2023 Glucose [Mass/Vol] 150 mg/dL High 70-100 [facility] Comment on above: ADA recommended refe rence rangeRandom Glucose Reference Range is dependent on time and content of last meal. Glucose of more than 200 mg/dL in a nonstressed, ambulatory subject supports the diagnosis of Diabetes Mellitus. HbA1c HPLC (Bld) [Mass fract ion]on 09-12-2023 HbA1c (Bld) [Mass fraction] 6.6 % [facility] Hematocrit Auto (Bld) [Volum e fraction]Ordered By: Edgar Valenzuela on 09-12-2023 Hematocrit (Bld) [Volume fraction] 49.3 % High 34.0-46.4 [facility] Hemoglobin [Mass/volume] in BloodOrdered By: Edgar Valenzuela on 09-12-2023 Hemoglobin (Bld) [Mass/Vol] 16.9 g/dL High 11.8-15.4 [facility] INR in Platelet poor plasma by Coagulation assayOrdered By: Edgar Valenzuela on 09-12-2023 INR Coag (PPP) [Relative time] 1.1 {INR} [facility] Comment on above: INR Therapeutic Rang [...] Auto (Bld) [#/Vol] 9.8 10*3/uL 3.8-11.6 [facility] Lymphocytes Auto (Bld) [#/Vo l]Ordered By: Edgar Valenzuela on 09-12-2023 Lymphocytes (Bld) [#/Vol] 2.0 10*3/uL 1.00-4.8 [facility] Lymphocytes/100 WBC Auto (Bl d)Ordered By: Edgar Valenzuela on 09-12-2023 Lymphocytes/100 WBC (Bld) 20.2 % . [facility] MCH Auto (RBC) [Entitic mass ]Ordered By: Edgar Valenzuela on 09-12-2023 MCH (RBC) [Entitic mass] 32.7 pg 24.7-34.3 [facility] MCHC Auto (RBC) [Mass/Vol]Or dered By: Edgar Valenzuela on 09-12-2023 MCHC (RBC) [Mass/Vol] 34.2 g/dL 32.0-35.0 [facility] MCV Auto (RBC) [Entitic vol] Ordered By: Edgar Valenzuela on 09-12-2023 MCV (RBC) [Entitic vol] 95.6 fL 80-100 [facility] Monocyte distribution width [Entitic volume] in Blood by AutomatedOrdered By: Edgar Valenzuela on 09-12-2023 Monocyte distribution width Auto (Bld) [Entitic vol] 19.90 % 0.00-20.00 [facility] Monocytes Auto (Bld) [#/Vol] Ordered By: Edgar Valenzuela on 09-12-2023 Monocytes (Bld) [#/Vol] 0.6 10*3/uL 0.0-0.8 [facility] Monocytes/100 WBC Auto (Bld) Ordered By: Edgar Valenzuela on 09-12-2023 Monocytes/100 WBC (Bld) 5.9 % . [facility] Natriuretic peptide B [Mass/ Vol]Ordered By: Edgar Valenzuela on 09-12-2023 Natriuretic peptide B (Bld) [Mass/Vol] 112.0 pg/mL High 5-100 [facility] Neutrophils Auto (Bld) [#/Vo l]Ordered By: Edgar Valenzuela on 09-12-2023 Neutrophils (Bld) [#/Vol] 7.0 10*3/uL 1.8-7.7 [facility] Neutrophils/100 WBC Auto (Bl d)Ordered By: Edgar Valenzuela on 09-12-2023 Neutrophils/100 WBC (Bld) 71.3 % . [facility] No Panel InformationOrdered By: Edgar Valenzuela on 09-12-2023 Estimated GFR (CKD-EPI) > 60.0 mL/Min [facility] Creatinine Clearance (Chem 73.11 [facility] No Panel Informationon 09-11 Bedside Glucose 151 [facility] Nucleated erythrocytes [Pres ence] in Blood by Automated countOrdered By: Edgar Valenzuela on 09-12-2023 Nucleated RBC Auto Ql (Bld) 0.2 /100{WBC} 0-0.5 [facility] Platelet mean volume Auto (B ld) [Entitic vol]Ordered By: Edgar Valenzuela on 09-12-2023 Platelet mean volume (Bld) [Entitic vol] 9.5 fL 6.3-10.7 [facility] Platelets Auto (Bld) [#/Vol] Ordered By: Edgar Valenzuela on 09-12-2023 Platelets (Bld) [#/Vol] 195 10*3/uL 150-450 [facility] Potassium [Moles/volume] in Serum or PlasmaOrdered By: Edgar Valenzuela on 09-12-2023 Potassium [Moles/Vol] 4.0 mmol/L 3.5-5.1 [facility] Prothrombin time (PT)Ordered By: Edgar Valenzuela on 09-12-2023 PT Coag (PPP) [Time] 12.7 s 9.0-12.9 [facility] Comment on above: A hematocrit value g reater than 55% may lead to inaccurate results in coagulation testing. Patients having hematocrit values >55% require a special collection tube for coagulation studies. Please contact the laboratory at [phone] for redraw instructions. RBC Auto (Bld) [#/Vol]Ordere d By: Edgar Valenzuela on 09-12-2023 RBC (Bld) [#/Vol] 5.16 10*6/uL High 3.60-5.00 [facility] Serum or plasma anion gap de terminationOrdered By: Edgar Valenzuela on 09-12-2023 Anion gap [Moles/Vol] 15.0 mmol/L 6.0-15.0 [facility] Sodium [Moles/volume] in Ser um or PlasmaOrdered By: Edgar Valenzuela on 09-12-2023 Sodium [Moles/Vol] 138 mmol/L 136-145 [facility] Troponin I.cardiac [Mass/vol ume] in Serum or Plasma by Detection limit <= 0.01 ng/Ordered By: Edgar Valenzuela on 09-12-2023 Troponin I.cardiac DL <= 0.01 ng/mL [Mass/Vol] 7.3 pg/mL 0.0-15.0 [facility] Urea nitrogen [Mass/volume] in Serum or PlasmaOrdered By: Edgar Valenzuela on 09-12-2023 Urea nitrogen [Mass/Vol] 11 mg/dL 7-25 [facility] WBC Auto (Bld) [#/Vol]Ordere d By: Edgar Valenzuela on 09-12-2023 WBC (Bld) [#/Vol] 9.8 10*3/uL 3.8-11.6 [facility] Alanine aminotransferase [En zymatic activity/volume] in Serum or PlasmaOrdered By: Angelique Russell on 09-05-2023 ALT [Catalytic activity/Vol] 19 U/L 7-52 [facility] Albumin [Mass/volume] in Ser um or Plasma by Bromocresol green (BCG) dye binding methoOrdered By: Angelique Russell on 09-05-2023 Albumin BCG dye [Mass/Vol] 4.3 g/dL 3.5-5.7 [facility] Alkaline phosphatase [Enzyma tic activity/volume] in Serum or PlasmaOrdered By: Angelique Russell on 09-05-2023 ALP [Catalytic activity/Vol] 81 U/L 34-104 [facility] Aspartate aminotransferase [ Enzymatic activity/volume] in Serum or PlasmaOrdered By: Angelique Russell on 09-05-2023 AST [Catalytic activity/Vol] 26 U/L 13-39 [facility] Bilirubin.total [Mass/volume ] in Serum or PlasmaOrdered By: Angelique Russell on 09-05-2023 Bilirubin [Mass/Vol] 0.7 mg/dL 0.3-1.0 [facility] Calcium [Mass/volume] in Ser um or PlasmaOrdered By: Angelique Russell on 09-05-2023 Calcium [Mass/Vol] 10.2 mg/dL 8.6-10.3 [facility] Carbon dioxide, total [Moles /volume] in Serum or PlasmaOrdered By: Angelique Russell on 09-05-2023 CO2 [Moles/Vol] 28.6 mmol/L 21.0-31.0 [facility] Chloride [Moles/volume] in S elliot or PlasmaOrdered By: Angelique Russell on 09-05-2023 Chloride [Moles/Vol] 102 mmol/L 98-107 [facility] Cholesterol [Mass/volume] in Serum or PlasmaOrdered By: Angelique Russell on 09-05-2023 Cholesterol [Mass/Vol] 143 mg/dL 140-200 [facility] Comment on above: Chol less than 200 m g/dl low riskChol 201-239 mg/dl borderline riskChol 240 mg/dl and greater high risk Cholesterol in LDL Calc [Mas s/Vol]Ordered By: Angelique Russell on 09-05-2023 Cholesterol in LDL [Mass/Vol] 62 mg/dL 0-100 [facility] Comment on above: LDL ATP III CLASSIFI CATIONLDL less than 100 mg/dL OptimalLDL 100-129 mg/dL Near or above optimalLDL 130-159 mg/dL Borderline highLDL 160-189 mg/dL HighLDL greater than 189 mg/dL Very high Cholesterol in VLDL Calc [Ma ss/Vol]Ordered By: Angelique Russell on 09-05-2023 Cholesterol in VLDL [Mass/Vol] 51 mg/dL [facility] Creatinine [Mass/volume] in Serum or PlasmaOrdered By: Angelique Russell on 09-05-2023 Creatinine [Mass/Vol] 0.91 mg/dL 0.60-1.20 [facility] Creatinine [Mass/volume] in UrineOrdered By: Angelique Russell on 09-05-2023 Creatinine (U) [Mass/Vol] 118.0 mg/dL [facility] Comment on above: No reference range e stablished Globulin Calc (S) [Mass/Vol] Ordered By: Angelique Russell on 09-05-2023 Globulin (S) [Mass/Vol] 2.7 g/dL [facility] Glucose [Mass/volume] in Ser um or PlasmaOrdered By: Angelique Russell on 09-05-2023 Glucose [Mass/Vol] 197 mg/dL High 70-100 [facility] Comment on above: ADA recommended refe rence rangeRandom Glucose Reference Range is dependent on time and content of last meal. Glucose of more than 200 mg/dL in a nonstressed, ambulatory subject supports the diagnosis of Diabetes Mellitus. Microalbumin [Mass/volume] i n UrineOrdered By: Angelique Russell on 09-05-2023 Albumin DL <= 20 mg/L (U) [Mass/Vol] 18.4 mg/dL High 0.0-1.8 [facility] No Panel InformationOrdered By: Angelique Russell on 09-05-2023 Estimated GFR (CKD-EPI) > 60.0 mL/Min [facility] Creatinine Clearance (Chem N/A [facility] Potassium [Moles/volume] in Serum or PlasmaOrdered By: Angelique Russell on 09-05-2023 Potassium [Moles/Vol] 4.2 mmol/L 3.5-5.1 [facility] Protein [Mass/volume] in Ser um or PlasmaOrdered By: Angelique Russell on 09-05-2023 Protein [Mass/Vol] 7.0 g/dL 6.4-8.9 [facility] Serum or plasma albumin/glob ulin mass ratioOrdered By: Angelique Russell on 09-05-2023 Albumin/Globulin [Mass ratio] 1.6 {ratio} [facility] Serum or plasma anion gap de terminationOrdered By: Angelique Russell on 09-05-2023 Anion gap [Moles/Vol] 13.6 mmol/L 6.0-15.0 [facility] Serum or plasma high density lipoprotein (HDL) cholesterol measurementOrdered By: Angelique Russell on 09-05-2023 Cholesterol in HDL [Mass/Vol] 30 mg/dL 23- [facility] Comment on above: HDL CHOL ATP-III CLA SSIFICATION Cardiovascular RiskHDL > or equal to 60 mg/dL LOWHDL < 40 mg/dL HIGH Serum or plasma total choles terol/high density lipoprotein (HDL) cholesterol mass ratOrdered By: Angelique Russell on 09-05-2023 Cholesterol.total/Monica sterol in HDL [Mass ratio] 4.8 {ratio} <5.0 [facility] Sodium [Moles/volume] in Ser um or PlasmaOrdered By: Angelique Russell on 09-05-2023 Sodium [Moles/Vol] 140 mmol/L 136-145 [facility] Triglyceride [Mass/volume] i n Serum or PlasmaOrdered By: Angelique Russell on 09-05-2023 Triglyceride [Mass/Vol] 256 mg/dL High 0-149 [facility] Comment on above: TRIG ATP III CLASSIF ICATIONTRIG less than 150 mg/dL NormalTRIG 150-199 mg/dL Borderline highTRIG 200-500 mg/dL High TRIG greater than 500 mg/dL Very highStandard traceable to the Center for Disease Conrtrol and Prevention (CDC) test method. Urea nitrogen [Mass/volume] in Serum or PlasmaOrdered By: Angelique Russell on 09-05-2023 Urea nitrogen [Mass/Vol] 12 mg/dL 7- [facility] Urine microalbumin/creatinin e mass ratioOrdered By: Angelique Russell on 05-09-2024 Albumin/Creatinine DL <= 20 mg/L (U) [Mass ratio] 155.0 mg/g High 0.0-30.0 [facility] Comment on above: 30-300 mg/g indicate s an increased risk for diabetic nephropathy. Greater than 300 mg/g is consistent with clinical nephropathy. (Am. J. Kidney Disease 1995, 25:107) Vitamin B12 ser/plasOrdered By: Angelique Russell on 09-05-2023 Cobalamin (Vitamin B12) [Mass/Vol] 255 pg/mL 180-914 [facility] Laboratory - Hematology and Cell countson 06-12-2023 HbA1c (Bld) [Mass fraction] 7.2 % [facility] No Panel Informationon 06-12 Bedside Glucose 197 [facility] A1C HEMOGLOBINon 01-07-2023 HbA1c (Bld) [Mass fraction] 6.3 % [employer] Other Glucose - [employer] Glucose [Mass/Vol] 196 mg/dL [employer] Other HbA1c (Bld) [Mass fraction]o n 01-07-2023 A1C HEMOGLOBIN [employer] Other A1C HEMOGLOBINon 09-27-2022 HbA1c (Bld) [Mass fraction] 6.6 % [employer] Other Glucose - [employer] Glucose [Mass/Vol] 128 mg/dL [employer] Other HbA1c (Bld) [Mass fraction]o n 09-27-2022 A1C HEMOGLOBIN [employer] Other A1C HEMOGLOBINon 06-18-2022 HbA1c (Bld) [Mass fraction] 7.1 % [employer] Other Glucose - [employer] Glucose [Mass/Vol] 219 mg/dL [employer] Other HbA1c (Bld) [Mass fraction]o n 06-18-2022 A1C HEMOGLOBIN [employer] Other A1C HEMOGLOBINon 01-09-2022 HbA1c (Bld) [Mass fraction] 7.7 % [facility] [employer] Other Glucose - [employer] Glucose [Mass/Vol] 242 mg/dL [facility] [employer] Other HbA1c (Bld) [Mass fraction]o n 01-09-2022 A1C HEMOGLOBIN [facility] [employer] Other Consultation Noteon 12-26-19 Consultation Note [id number]: 127 Normal [facility] Insurance Correspondence Off iceon 12-20-2021 Insurance Correspondence Office [id number]: 127 Normal [facility] Urine culture routineOrdered By: iMlo Watters on 12-19-2021 Bacteria identified Cx Nom (U) Zeny albicans [facility] Albumin [Mass/volume] in Ser um or PlasmaOrdered By: Milo Watters on 12-17-2021 Albumin [Mass/Vol] 3.4 g/dL 3.2-5.5 [facility] Automated erythrocytes count in urine sediment (number/area)Ordered By: Milo Watters on 12-17-2021 RBC Auto (Urine sed) [#/Area] 3-4 [HPF] 0-4 [facility] Automated leukocytes count i n urine sediment (number/area)Ordered By: Milo Watters on 12-17-2021 WBC Auto (Urine sed) [#/Area] 50-100 [HPF] 0-4 [facility] Automated urine hyaline cast s count (number/volume)Ordered By: Milo Watters on 12-17-2021 Hyaline casts Auto (U) [#/Vol] None seen [LPF] 0-1 [facility] Basophils Auto (Bld) [#/Vol] Ordered By: Milo Watters on 12-17-2021 Basophils (Bld) [#/Vol] 0.1 10*3/uL 0.0-0.2 [facility] Basophils/100 WBC Auto (Bld) Ordered By: Milo Watters on 12-17-2021 Basophils/100 WBC (Bld) 0.5 % . [facility] Bilirubin Test strip Ql (U)O rdered By: Milo Watters on 12-17-2021 Bilirubin Ql (U) Negative Negative [facility] Blood hemoglobin measurement (mass/volume)Ordered By: Milo Watters on 12-17-2021 Hemoglobin (Bld) [Mass/Vol] 16.1 g/dL 11.8-15.4 [facility] Blood leukocytes automated c ount (number/volume)Ordered By: Milo Watters on 12-17-2021 WBC (Bld) [#/Vol] 10.7 10*3/uL 4.5-11.0 [facility] Casts typing in urine sedime nt by light microscopyOrdered By: Milo Watters on 12-17-2021 Casts LM Nom (Urine sed) None seen [LPF] None Seen [facility] Color Auto (U)Ordered By: Jonh Watters on 12-17-2021 Color (U) Yellow Yellow [facility] Creatinine and Glomerular fi ltration rate.predicted panel (S/P/Bld)Ordered By: Milo Watters on 12-17-2021 Creatinine [Mass/Vol] 0.89 mg/dL 0.44-1.03 Fir [facility] Eosinophils Auto (Bld) [#/Vo l]Ordered By: Milo Watters on 12-17-2021 Eosinophils (Bld) [#/Vol] 0.1 10*3/uL 0.0-0.45 [facility] Eosinophils/100 WBC Auto (Bl d)Ordered By: Milo Watters on 12-17-2021 Eosinophils/100 WBC (Bld) 1.0 % . [facility] Erythrocyte distribution wid th Auto (RBC) [Ratio]Ordered By: Milo Watters on 12-17-2021 Erythrocyte distribution width (RBC) [Ratio] 13.1 % 11.9-15.3 [facility] Estimated glomerular filtrat ion rate (GFR) non- AmericanOrdered By: Milo Watters on 12-17-2021 GFR/1.73 sq M.predicted among non-blacks MDRD (S/P/Bld) [Vol rate/Area] > 60 mL/Min [facility] Globulin Calc (S) [Mass/Vol] Ordered By: Milo Watters on 12-17-2021 Globulin (S) [Mass/Vol] 3.9 g/dL [facility] Hematocrit Auto (Bld) [Volum e fraction]Ordered By: Milo Watters on 12-17-2021 Hematocrit (Bld) [Volume fraction] 48.5 % 34.0-46.4 [facility] Ketones Auto test strip (U) [Mass/Vol]Ordered By: Milo Watters on 12-17-2021 Ketones (U) [Mass/Vol] Negative Negative Fi [facility] Laboratory - Hematology and Cell countsOrdered By: Milo Watters on 12-17-2021 Nucleated RBC/100 WBC (Bld) [Ratio] 0.1 % 0-0.5 [facility] Lymphocytes Auto (Bld) [#/Vo l]Ordered By: Milo Watters on 12-17-2021 Lymphocytes (Bld) [#/Vol] 1.5 10*3/uL 1.00-4.8 [facility] Lymphocytes/100 WBC Auto (Bl d)Ordered By: Milo Watters on 12-17-2021 Lymphocytes/100 WBC (Bld) 14.2 % . [facility] MCH Auto (RBC) [Entitic mass ]Ordered By: Milo Watters on 12-17-2021 MCH (RBC) [Entitic mass] 31.4 pg 24.7-34.3 [facility] MCHC Auto (RBC) [Mass/Vol]Or dered By: Milo Watters on 12-17-2021 MCHC (RBC) [Mass/Vol] 33.2 g/dL 32.0-35.0 Fir [facility] MCV Auto (RBC) [Entitic vol] Ordered By: Milo Watters on 12-17-2021 MCV (RBC) [Entitic vol] 94.6 fL 80-100 [facility] Monocytes Auto (Bld) [#/Vol] Ordered By: Milo Watters on 12-17-2021 Monocytes (Bld) [#/Vol] 0.8 10*3/uL 0.0-0.8 [facility] Monocytes/100 WBC Auto (Bld) Ordered By: Milo Watters on 12-17-2021 Monocytes/100 WBC (Bld) 7.5 % . [facility] Neutrophils Auto (Bld) [#/Vo l]Ordered By: Milo Watters on 12-17-2021 Neutrophils (Bld) [#/Vol] 8.2 10*3/uL 1.8-7.7 [facility] Neutrophils/100 WBC Auto (Bl d)Ordered By: Milo Watters on 12-17-2021 Neutrophils/100 WBC (Bld) 76.8 % . [facility] Nitrite Test strip Ql (U)Ord ered By: Milo Watters on 12-17-2021 Nitrite Ql (U) Negative Negative [facility] No Panel InformationOrdered By: Milo Watters on 12-17-2021 Estimated GFR () > 60 mL/Min [facility] Comment on above: GFR estimated refere nce range: According to KDOQI guidelines, <60 ml/min/1.73m2 is sufficient to diagnose a patient with chronic kidney disease. Pharmacy Creatinine Clearance (Chem 70.55 [facility] Platelet mean volume Auto (B ld) [Entitic vol]Ordered By: Milo Watters on 12-17-2021 Platelet mean volume (Bld) [Entitic vol] 8.7 fL 6.3-10.7 [facility] Platelets Auto (Bld) [#/Vol] Ordered By: Milo Watters on 12-17-2021 Platelets (Bld) [#/Vol] 239 10*3/uL 150-450 [facility] Protein Auto test strip (U) [Mass/Vol]Ordered By: Milo Watters on 12-17-2021 Protein (U) [Mass/Vol] Trace mg/dL Negative [facility] Protein [Mass/volume] in Ser um or PlasmaOrdered By: Milo Watters on 12-17-2021 Protein [Mass/Vol] 7.3 g/dL 6.1-7.9 [facility] RBC Auto (Bld) [#/Vol]Ordere d By: Milo Watters on 12-17-2021 RBC (Bld) [#/Vol] 5.13 10*6/uL 3.60-5.00 [facility] Serum or plasma alanine tucker otransferase measurement without P-5'-P (enzymatic activiOrdered By: Milo Watters on 12-17-2021 ALT No additional P-5'-P [Catalytic activity/Vol] 38 U/L 10-60 [facility] Serum or plasma albumin/glob ulin mass ratioOrdered By: Milo Watters on 12-17-2021 Albumin/Globulin [Mass ratio] 0.9 {ratio} [facility] Serum or plasma alkaline yue sphatase measurement (enzymatic activity/volume)Ordered By: Milo Watters on 12-17-2021 ALP [Catalytic activity/Vol] 109 U/L 32-92 [facility] Serum or plasma aspartate am inotransferase measurement (enzymatic activity/volume)Ordered By: Milo Watters on 12-17-2021 AST [Catalytic activity/Vol] 43 U/L 10-42 [facility] Serum or plasma calcium steve urement (mass/volume)Ordered By: Milo Watters on 12-17-2021 Calcium [Mass/Vol] 10.0 mg/dL 8.2-10.2 [facility] Serum or plasma chloride coleman surement (moles/volume)Ordered By: Milo Watters on 12-17-2021 Chloride [Moles/Vol] 102 mmol/L 95-114 [facility] Serum or plasma glucose steve urement (mass/volume)Ordered By: Milo Watters on 12-17-2021 Glucose [Mass/Vol] 231 mg/dL 70-100 [facility] Comment on above: ADA recommended refe rence range Random Glucose Reference Range is dependent on time and content of last meal. Glucose of more than 200 mg/dL in a nonstressed, ambulatory subject supports the diagnosis of Diabetes Mellitus. Serum or plasma potassium me asurement (moles/volume)Ordered By: OSORIO WHITE on 12-17-2021 Potassium [Moles/Vol] 3.6 mmol/L 3.5-5.1 [facility] Serum or plasma sodium measu rement (moles/volume)Ordered By: Milo Watters on 12-17-2021 Sodium [Moles/Vol] 137 mmol/L 136-146 [facility] Serum or plasma total biliru bin measurement (mass/volume)Ordered By: Milo Watters on 12-17-2021 Bilirubin [Mass/Vol] 0.8 mg/dL 0.3-1.2 [facility] Serum or plasma total carbon dioxide measurement (moles/volume)Ordered By: Milo Watters on 12-17-2021 CO2 [Moles/Vol] 24.6 mmol/L 22.0-30.0 [facility] Serum or plasma urea nitroge n measurement (mass/volume)Ordered By: Milo Watters on 12-17-2021 Urea nitrogen [Mass/Vol] 8 mg/dL 9- [facility] Specific gravity Auto test s trip (U) [Rel density]Ordered By: Milo Watters on 12-17-2021 Specific gravity (U) [Rel density] 1.030 1.001-1.03 0 [facility] Squamous epithelial cells de tection in urine sediment by light microscopyOrdered By: Milo Watters on 12-17-2021 Epithelial cells.squamous LM Ql (Urine sed) None seen [HPF] 0-2 [facility] Urine bacteria detection by automated methodOrdered By: Milo Watters on 12-17-2021 Bacteria Auto Ql (U) Rare None Seen [facility] Urine clarity by refractomet ry automatedOrdered By: Milo Watters on 12-17-2021 Clarity Refractometry automated (U) Clear Clear [facility] Urine glucose measurement by automated test strip (mass/volume)Ordered By: Milo Watters on 12-17-2021 Glucose Auto test strip (U) [Mass/Vol] >=1000 mg/dL Normal [facility] Urine hemoglobin detection b y automated test stripOrdered By: Milo Watters on 12-17-2021 Hemoglobin Auto test strip Ql (U) 1+ Negative [facility] Urine leukocyte esterase det ection by automated test stripOrdered By: Milo Watters on 12-17-2021 Leukocyte esterase Auto test strip Ql (U) 3+ Negative [facility] Urobilinogen Auto test strip (U) [Mass/Vol]Ordered By: Milo Watters on 12-17-2021 Urobilinogen (U) [Mass/Vol] Normal mg/dL Normal [facility] Yeast detection in urine sed iment by light microscopyOrdered By: Milo Watters on 12-17-2021 Yeast LM Ql (Urine sed) 3+ [HPF] None Seen [facility] pH Auto test strip (U)Ordere d By: Milo Watters on 12-17-2021 pH (U) 6.0 [pH] 5.0-9.0 [facility] Bacterial blood cultureOrder ed By: Arleen Stephen on 12-14-2021 Bacteria identified Cx Nom (Bld) NO GROWTH 5 DAYS [facility] Basophils Auto (Bld) [#/Vol] Ordered By: Walter Montgomery on 12-13-2021 Basophils (Bld) [#/Vol] 0.0 10*3/uL 0.0-0.2 [facility] Basophils/100 WBC Auto (Bld) Ordered By: Walter Montgomery on 12-13-2021 Basophils/100 WBC (Bld) 0.1 % . [facility] Blood hemoglobin measurement (mass/volume)Ordered By: Walter Montgomery on 12-13-2021 Hemoglobin (Bld) [Mass/Vol] 14.2 g/dL 11.8-15.4 [facility] Blood leukocytes automated c ount (number/volume)Ordered By: Walter Montgomery on 12-13-2021 WBC (Bld) [#/Vol] 9.4 10*3/uL 4.5-11.0 [facility] Consultation Noteon 12-14-19 Consultation Note [id number]#[id number]: 127 Normal [facility] Creatinine and Glomerular fi ltration rate.predicted panel (S/P/Bld)Ordered By: Walter Montgomery on 12-13-2021 Creatinine [Mass/Vol] 0.75 mg/dL 0.44-1.03 [facility] Direct bilirubin measurement Ordered By: Walter Montgomery on 12-13-2021 Bilirubin.direct [Mass/Vol] 0.2 mg/dL 0.0-0.4 [facility] Eosinophils Auto (Bld) [#/Vo l]Ordered By: Walter Montgomery on 12-13-2021 Eosinophils (Bld) [#/Vol] 0.0 10*3/uL 0.0-0.45 [facility] Eosinophils/100 WBC Auto (Bl d)Ordered By: Walter Montgomery on 12-13-2021 Eosinophils/100 WBC (Bld) 0.0 % . [facility] Erythrocyte distribution wid th Auto (RBC) [Ratio]Ordered By: Walter Montgomery on 12-13-2021 Erythrocyte distribution width (RBC) [Ratio] 12.9 % 11.9-15.3 [facility] Estimated glomerular filtrat ion rate (GFR) non- AmericanOrdered By: Walter Montgomery on 12-13-2021 GFR/1.73 sq M.predicted among non-blacks MDRD (S/P/Bld) [Vol rate/Area] > 60 mL/Min [facility] Glucose Glucometer (BldC) [M ass/Vol]Ordered By: Wilmer Vance on 12-13-2021 Glucose [Mass/Vol] 230 mg/dL [facility] Comment on above: Random Glucose Refer ence Range is dependent on time and content of last meal. Glucose of more than 200 mg/dL in a nonstressed, ambulatory subject supports the diagnosis of Diabetes Mellitus. Hematocrit Auto (Bld) [Volum e fraction]Ordered By: Walter Montgomery on 12-13-2021 Hematocrit (Bld) [Volume fraction] 41.9 % 34.0-46.4 [facility] Laboratory - Hematology and Cell countsOrdered By: Walter Montgomery on 12-13-2021 Nucleated RBC/100 WBC (Bld) [Ratio] 0.0 % 0-0.5 [facility] Lymphocytes Auto (Bld) [#/Vo l]Ordered By: Walter Montgomery on 12-13-2021 Lymphocytes (Bld) [#/Vol] 0.7 10*3/uL 1.00-4.8 [facility] Lymphocytes/100 WBC Auto (Bl d)Ordered By: Walter Montgomery on 12-13-2021 Lymphocytes/100 WBC (Bld) 7.7 % . [facility] MCH Auto (RBC) [Entitic mass ]Ordered By: Walter Montgomery on 12-13-2021 MCH (RBC) [Entitic mass] 32.2 pg 24.7-34.3 [facility] MCHC Auto (RBC) [Mass/Vol]Or dered By: Walter Montgomery on 12-13-2021 MCHC (RBC) [Mass/Vol] 33.9 g/dL 32.0-35.0 [facility] MCV Auto (RBC) [Entitic vol] Ordered By: Walter Montgomery on 12-13-2021 MCV (RBC) [Entitic vol] 95.1 fL 80-100 [facility] Monocytes Auto (Bld) [#/Vol] Ordered By: Walter Montgomery on 12-13-2021 Monocytes (Bld) [#/Vol] 0.2 10*3/uL 0.0-0.8 [facility] Monocytes/100 WBC Auto (Bld) Ordered By: Walter Montgomery on 12-13-2021 Monocytes/100 WBC (Bld) 1.8 % . [facility] Neutrophils Auto (Bld) [#/Vo l]Ordered By: Walter Montgomery on 12-13-2021 Neutrophils (Bld) [#/Vol] 8.5 10*3/uL 1.8-7.7 [facility] Neutrophils/100 WBC Auto (Bl d)Ordered By: Walter Montgomery on 12-13-2021 Neutrophils/100 WBC (Bld) 90.4 % . [facility] No Panel InformationOrdered By: Walter Montgomery on 12-13-2021 Estimated GFR () > 60 mL/Min [facility] Comment on above: GFR estimated refere nce range: According to KDOQI guidelines, <60 ml/min/1.73m2 is sufficient to diagnose a patient with chronic kidney disease. Pharmacy Creatinine Clearance (Chem 84.79 [facility] Platelet mean volume Auto (B ld) [Entitic vol]Ordered By: Walter Montgomery on 12-13-2021 Platelet mean volume (Bld) [Entitic vol] 9.3 fL 6.3-10.7 [facility] Platelets Auto (Bld) [#/Vol] Ordered By: Walter Montgomery on 12-13-2021 Platelets (Bld) [#/Vol] 178 10*3/uL 150-450 [facility] RBC Auto (Bld) [#/Vol]Ordere d By: Walter Montgomery on 12-13-2021 RBC (Bld) [#/Vol] 4.41 10*6/uL 3.60-5.00 [facility] Serum or plasma chloride coleman surement (moles/volume)Ordered By: Walter Montgomery on 12-13-2021 Chloride [Moles/Vol] 105 mmol/L 95-114 [facility] Serum or plasma non-glucuron idated bilirubin measurement (mass/volume)Ordered By: Walter Montgomery on 12-13-2021 Bilirubin.indirect [Mass/Vol] 0.5 mg/dL [facility] Serum or plasma potassium me asurement (moles/volume)Ordered By: Walter Montgomery on 12-13-2021 Potassium [Moles/Vol] 4.4 mmol/L 3.5-5.1 [facility] Serum or plasma sodium measu rement (moles/volume)Ordered By: Walter Montgomery on 12-13-2021 Sodium [Moles/Vol] 137 mmol/L 136-146 [facility] Serum or plasma total biliru bin measurement (mass/volume)Ordered By: Walter Montgomery on 12-13-2021 Bilirubin [Mass/Vol] 0.7 mg/dL 0.3-1.2 [facility] Serum or plasma total carbon dioxide measurement (moles/volume)Ordered By: Walter Montgomery on 12-13-2021 CO2 [Moles/Vol] 24.6 mmol/L 22.0-30.0 [facility] Serum or plasma urea nitroge n measurement (mass/volume)Ordered By: Walter Montgomery on 12-13-2021 Urea nitrogen [Mass/Vol] 12 mg/dL 9-23 [facility] Activated partial thrombopla stin time (aPTT) in platelet poor plasma by coagulation aOrdered By: Walter Montgomery on 12-12-2021 aPTT Coag (PPP) [Time] 30.0 s 25.1-36.5 [facility] Laboratory - CoagulationOrde red By: Walter Montgomery on 12-12-2021 PT Coag (PPP) [Time] 14.1 s 9.0-12.9 [facility] Platelet poor plasma interna tional normalized ratio (INR) by coagulation assay (relatOrdered By: Walter Montgomery on 12-12-2021 INR Coag (PPP) [Relative time] 1.3 {INR} [facility] Comment on above: INR Therapeutic Rang [...] ALP [Catalytic activity/Vol] 92 U/L 32-92 [facility] Serum or plasma aspartate am inotransferase measurement (enzymatic activity/volume)Ordered By: Walter Montgomery on 12-12-2021 AST [Catalytic activity/Vol] 22 U/L 10-42 [facility] Albumin [Mass/volume] in Ser um or PlasmaOrdered By: Arleen Stephen on 12-11-2021 Albumin [Mass/Vol] 2.9 g/dL 3.2-5.5 [facility] Globulin Calc (S) [Mass/Vol] Ordered By: Arleen Stephen on 12-11-2021 Globulin (S) [Mass/Vol] 3.0 g/dL [facility] No Panel InformationOrdered By: Arleen Stephen on 12-11-2021 Bedside Glucose Comment Glu2: cleaned meter [facility] Protein [Mass/volume] in Ser um or PlasmaOrdered By: Arleen Stephen on 12-11-2021 Protein [Mass/Vol] 5.9 g/dL 6.1-7.9 [facility] Serum or plasma alanine tucker otransferase measurement without P-5'-P (enzymatic activiOrdered By: Arleen Stephen on 12-11-2021 ALT No additional P-5'-P [Catalytic activity/Vol] 16 U/L 10-60 [facility] Serum or plasma albumin/glob ulin mass ratioOrdered By: Arleen Stephen on 12-11-2021 Albumin/Globulin [Mass ratio] 1.0 {ratio} [facility] Serum or plasma calcium steve urement (mass/volume)Ordered By: Arleen Stephen on 12-11-2021 Calcium [Mass/Vol] 9.2 mg/dL 8.2-10.2 [facility] Serum or plasma glucose steve urement (mass/volume)Ordered By: Arleenlissa Stephen on 12-11-2021 Glucose [Mass/Vol] 204 mg/dL 70-100 [facility] Comment on above: ADA recommended refe rence range Random Glucose Reference Range is dependent on time and content of last meal. Glucose of more than 200 mg/dL in a nonstressed, ambulatory subject supports the diagnosis of Diabetes Mellitus. Urine culture routineOrdered By: Tray Randle on 12-11-2021 Bacteria identified Cx Nom (U) Escherichia coli [facility] Automated erythrocytes count in urine sediment (number/area)Ordered By: Tray Randle on 12-09-2021 RBC Auto (Urine sed) [#/Area] 5-9 [HPF] 0-4 [facility] Automated leukocytes count i n urine sediment (number/area)Ordered By: Tray Randle on 12-09-2021 WBC Auto (Urine sed) [#/Area] 50-100 [HPF] 0-4 [facility] Automated urine hyaline cast s count (number/volume)Ordered By: Tray Randle on 12-09-2021 Hyaline casts Auto (U) [#/Vol] None seen [LPF] 0-1 [facility] Bilirubin Test strip Ql (U)O rdered By: Tray Randle on 12-09-2021 Bilirubin Ql (U) Negative Negative [facility] COVID-19 Positive/NegativeOr dered By: Tray Randle on 12-09-2021 SARS-CoV-2 (COVID-19) N gene TEJINDER+probe Ql (Resp) Negative Negative [facility] Comment on above: Testing for SARS-CoV -2 by RT-PCR This test was developed and its performance characteristics determined by [employer] ([employer]) and validated at the [facility]. This test has not been FDA [...] Ag IA.rapid Ql (Resp) Negative Negative [facility] Comment on above: This is a duplicate Molly SARS Antigen (ANUP) result to be used for statistical tracking purpose only. Casts typing in urine sedime nt by light microscopyOrdered By: Tray Randle on 12-09-2021 Casts LM Nom (Urine sed) None seen [LPF] None Seen [facility] Color Auto (U)Ordered By: Carolina Randle on 12-09-2021 Color (U) Yellow Yellow [facility] Ketones Auto test strip (U) [Mass/Vol]Ordered By: Tray Randle on 12-09-2021 Ketones (U) [Mass/Vol] Negative Negative [facility] Nitrite Test strip Ql (U)Ord ered By: Tray Randle on 12-09-2021 Nitrite Ql (U) Positive Negative [facility] No Panel InformationOrdered By: Tray Randle on 12-09-2021 SARS Antigen (LFIA) [facility] Protein Auto test strip (U) [Mass/Vol]Ordered By: Tray Randle on 12-09-2021 Protein (U) [Mass/Vol] Negative Negative [facility] Specific gravity Auto test s trip (U) [Rel density]Ordered By: Tray Randle on 12-09-2021 Specific gravity (U) [Rel density] 1.030 1.001-1.03 0 [facility] Squamous epithelial cells de tection in urine sediment by light microscopyOrdered By: Tray Randle on 12-09-2021 Epithelial cells.squamous LM Ql (Urine sed) 10-19 [HPF] 0-2 [facility] Troponin I.cardiac [Mass/vol ume] in Serum or Plasma by High sensitivity methodOrdered By: Arleen Stephen on 12-09-2021 Troponin I.cardiac High sensitivity method [Mass/Vol] 5 pg/mL 0-15 [facility] Urine bacteria detection by automated methodOrdered By: Tray Randle on 12-09-2021 Bacteria Auto Ql (U) 4+ None Seen [facility] Urine clarity by refractomet ry automatedOrdered By: Tray Randle on 12-09-2021 Clarity Refractometry automated (U) Cloudy Clear [facility] Urine glucose measurement by automated test strip (mass/volume)Ordered By: Tray Randle on 12-09-2021 Glucose Auto test strip (U) [Mass/Vol] >=1000 mg/dL Normal [facility] Urine hemoglobin detection b y automated test stripOrdered By: Tray Randle on 12-09-2021 Hemoglobin Auto test strip Ql (U) Trace Negative [facility] Urine lactic acid measuremen tOrdered By: Arleen Stephen on 12-09-2021 Lactate (U) [Moles/Vol] 1.7 mmol/L 0.5-2.2 [facility] Urine leukocyte esterase det ection by automated test stripOrdered By: Tray Randle on 12-09-2021 Leukocyte esterase Auto test strip Ql (U) 2+ Negative [facility] Urobilinogen Auto test strip (U) [Mass/Vol]Ordered By: Tray Randle on 12-09-2021 Urobilinogen (U) [Mass/Vol] Normal mg/dL Normal [facility] pH Auto test strip (U)Ordere d By: Tray Randle on 12-09-2021 pH (U) 5.5 [pH] 5.0-9.0 [facility] A1C HEMOGLOBINon 10-12-2021 HbA1c (Bld) [Mass fraction] 7.5 % [employer] Other HbA1c (Bld) [Mass fraction]o n 10-12-2021 A1C HEMOGLOBIN [employer] Other A1C HEMOGLOBINon 07-10-2021 HbA1c (Bld) [Mass fraction] 6 % [employer] Other Glucose - FINGER STICKon Glucose [Mass/Vol] 150 mg/dL [employer] Other HbA1c (Bld) [Mass fraction]o n 07-10-2021 A1C HEMOGLOBIN [employer] Other A1C HEMOGLOBINon 03-27-2021 HbA1c (Bld) [Mass fraction] 6.9 % [employer] Other Glucose - FINGER STICKon Glucose [Mass/Vol] 244 mg/dL [employer] Other HbA1c (Bld) [Mass fraction]o n 03-27-2021 A1C HEMOGLOBIN [employer] Other PROGRESSon 02-12-2019 PROGRESS HNO ID: [id number] Author: Clyde Hall Service: ? Author Type: [...] - RTC to see Nov 1 at [facility], to ensure complete healing, and further discuss plan of care re pathology results. - call office prn for issues/concerns Clyde Hall APRN.CNP [facility] 02-11-2019 CNOV Office Visit (GYNML) -------- TAYE GAY ([id number]) 1955 F Date Time Provider Department 02/11/19 2:30 PM CLYDE HALL (JAYSON) GYNDOMINIK During your visit today, we recorded [...] - RTC to see Nov 1 at [facility], to ensure complete healing, and further discuss plan of care re pathology results. - call office prn for issues/concerns Clyde Hall APRN.JAYSON Referring Provider: THEO JOAQUIN [[id number]] Allergies As of Date: 02/11/2019 Noted Allergy [...] Status:Closed by CLYDE HALL CNP on 02/12/19 [facility] CNOVon 01-21-2019 CNOV Office Visit (GYNML) -------- TAYE GAY ([id number]) 1955 F Date Time Provider Department 01/21/19 10:45 AM THEO JOAQUIN During your visit today, we recorded the following information about you: Temperature Pulse Blood pressure Weight 98.6 degrees 94/minute 111/52 91.4 kg Theo Joaquin MD 01/22/2019 2:06 PM Signed Gynecologic Oncology [facility] Re: Taye Gay CCF#:[id number] 01/21/2019 Dear Nereida Castro: Taye presents for [...] note were sent to: Nereida Castro MD ([facility]) [address] [address] CC: Jonas Yoder MD (PCP) Referring Provider: THEO JOAQUIN [[id number]] Allergies As of Date: 01/21/2019 Noted Allergy [...] Status:Closed by THEO JOAQUIN MD on 01/22/19 [facility] PROGRESSon 01-08-2019 PROGRESS HNO ID: [id number] Author: Theo Joaquin Service: ? Author Type: Physician Type: Progress Notes Filed: 01/22/2019 2:06 PM Note Text: Gynecologic Oncology [facility] Re: Taye Gay CCF#:[id number] 01/21/2019 Dear Nereida Castro: Taye presents for [...] note were sent to: Nereida Castro MD ([facility]) Critical access hospital [address] [address] CC: Jonas Yoder MD (PCP) [facility] CNOVon 01-07-2019 CNOV Office Visit (GYNML) -------- PRITITAYE ([id number]) 1955 F Date Time Provider Department 01/07/19 8:30 AM THEO JOAQUIN GYNML During your visit today, we recorded the following information about you: Temperature Pulse Blood pressure Weight 98.4 degrees 124/minute 103/53 90.2 kg Theo Joaquin MD 01/10/2019 11:17 PM Signed Gynecologic Oncology [facility] Re: Taye Priti CCF#:[id number] 01/07/2019 Dear Nereida Castro: Taye presents for [...] were sent to: Nereida Castro MD ([facility]) [facility] [address] [address] CC: Jonas Yoder MD (PCP) Referring Provider: THEO JOAQUIN [[id number]] Allergies As of Date: 01/07/2019 Noted Allergy [...] Status:Closed by THEO JOAQUIN MD on 01/10/19 [facility] 01-06-2019 [facility] Telephone (GYN) -------- TAYE GAY ([id number]) 1955 F Date Time Provider Department 01/06/19 [...] Appointment made with Dr. Joaquin 01/07 @ 4278 for wound check Patient verbalized understanding and [...] Encounter Status:Closed by SHANTEL REYNOSO on 01/06/19 [facility] PROGRESSon 01-06-2019 PROGRESS HNO ID: [id number] Author: Theo Joaquin Service: ? Author Type: Physician Type: Progress Notes Filed: 01/10/2019 11:17 PM Note Text: Gynecologic Oncology [facility] Re: Taye Gay CCF#:[id number] 01/07/2019 Dear Nereida Castro: Taye presents for [...] were sent to: Nereida Castro MD ([facility]) [address] [place] [phone] CC: Jonas Yoder MD (PCP) [facility] ANES Yousuf 01-01-2019 ANES POST HNO ID: [id number] Author: Katharina Durham Service: Anesthesiology Author Type: [...] 01, 2019 TIME: 9:45 AM PAGER/CONTACT #: [facility] ANES PREOPon 01-01-2019 ANES PREOP HNO ID: [id number] Author: Katharina Durham Service: Anesthesiology Author Type: [...] for 7 days Inpatient medications reviewed in [facility]. I have interviewed and examined the [...] 2019 TIME: 7:35 AM PAGER/CONTACT #: Diane [facility] HISTORY PHYSICALon HISTORY PHYSICAL HNO ID: [id number] Author: Petty Shahid (Fel) Service: Gynecology Oncology [...] January 01, 2019 TIME: 7:16 AM PAGER: [facility] OPERATIVE NOon 01-01-2019 OPERATIVE NO HNO ID: [id number] Author: Theo Joaquin Service: Gynecology Oncology Author Type: Physician Type: Operative Report Filed: 01/17/2019 7:16 PM Note Text: OPERATIVE/PROCEDURE REPORT LOG ID: [id number] SURGERY/PROCEDURE DATE: 01/01/2019 INCISION/PROCEDURE START TIME: 8:11 AM INCISION CLOSE/PROCEDURE END TIME: 8:34 AM SURGEON(S)/PROCEDURALIST (S) AND AGRONOMY INTERNSHIP(S): Surgeon(s) and Role: * Theo Joaquin - [...] 03, 2019 TIME: 2:24 PM PAGER/CONTACT #: [facility] PT EDon 01-01-2019 PT ED HNO ID: [id number] Author: Patty GalvinRn) BRENDA Bernal Service: Nursing [...] bath Electronically Signed By: Patty Bernal RN [facility] PT ED HNO ID: [id number] Author: Milly GalvinRn) BRENDA Murry Service: Nursing [...] None Electronically Signed By: Milly Murry RN [facility] PT ED HNO ID: [id number] Author: Jelly (Rn) BRENDA Simmons Service: Nursing [...] None Electronically Signed By: Jelly Simmons RN [facility] SURGICAL PATHOLOGYon 019 SURGICAL PATHOLOGY Specimen originated from [facility] Specimen #: [id number] Submitting Physician: THEO JOAQUIN MD __ FINAL [...] o'clock. Jatinder 01/01/2019 Gross examination performed at [facility], [address] [address] [address] Date of Report: 01/05/2019 Date of Procedure: 01/01/2019 Date of Receipt: 01/01/2019 Submitted by: THEO JOAQUIN MD Location: [facility] Diagnostic interpretation performed at [facility], [address] [place] [address]. [place] Number: [id number] [facility] NURSING PROGon 12-24-2018 NURSING PROG HNO ID: [id number] Author: Nataliya (Rn) BRENDA Bell Service: Nursing [...] Bell RN December 24, 2018 3:07 PM [facility] Confirm Blood Typeon 019 ABO/RH(D) Positive [facility] Comment on above: Performed By: #### C ONABO #### [facility] [id number] [place] [address] Type and SCR (30D)on 019 ABO/RH(D) Positive [facility] Comment on above: Performed By: #### T SCR30 #### [place] [address] HOSPon 12-05-2018 HOSP Patient:Taye Gay MRN: Height:5' [...] 51.2 % 12/17/2018 46.0 36.0 Progress Notes (REPRODUCTION ARTIST [facility]): Aracelis Charles, RN, RN 12/22/2018 11:38 AM Signed Pre-op teaching Procedure: vulvar surgery Physician: Location: [facility]: [phone] Date AND Time: 01/01/19 MEDICAL CLEARANCE: No [...] Naprosyn(naproxen) Agrylin NSAIDS Pepto-Bismol Aleve Ecotrin Persantine [place] Excedrin Plaquenil Anacin Heparin Plavix Ascriptin Herbals [...] - IV pain medication after surgery, IV AIRCRAFT RESTORER if ordered by MD, discharged home with a prescription for PO pain medication, pain management after surgery, side effects of pain medication (including constipation, dizziness, drowsiness, and medication interactions). DVT PROPHYLAXIS - Early ambulation, SCDs, injectable anticoagulants (heparin, lovenox, etc) RESPIRATORY - Incentive spirometer, coughing/deep breathing exercises, ambulation. RETURN TO WORK - As directed by physician, please send any FMLA papers to physician's traveling secretary. SYMPTOMS TO NOTIFY MD - Fever, [...] if after hours patient instructed to call switchboard operator helper and ask for the doctor cooperative education coordinator. Patient and family have phone number to call 24 hours/day. Patient Evaluation: Verbalizes understanding Patient and/or family express understanding of upcoming surgery and the operative process. Questions answered. Follow Up Plan: Follow up as needed Supplemental Material Given: Pre-operative teaching packet provided to the patient: INPATIENT/OUTPATIENT printed instructions; Post-operative instruction sheet, bowel prep instruction sheet For questions contact: office at [phone] Instructed By Aracelis Charles RN [facility] Serum or plasma calcidiol me asurement (mass/volume)on 07-10-2018 25-hydroxyvitamin D3 [Mass/Vol] 32.8 ng/mL 30-100 [facility] Comment on above: VITAMIN D STATUS 25( [place])VITAMIN D RANGE (ng/mL) Deficient <20 Insufficient 20 to <30Sufficient 30 to 100Reference: Sandra MEYER,Felisha SCANLON, Leon SHERWOOD, et al. Evaluation,treatment, and prevention of vitamin D deficiency; an Endocrine Society clinical practice guideline. JCEM. 2010; 96(7):1911-30. Vitamin B12 ser/plason 07-10 Cobalamin (Vitamin B12) [Mass/Vol] 446 pg/mL 180-914 [facility] BASIC METABOLIC PANELon 04-29 Anion gap 11 mmol/L Normal 0-19 [facility] Comment on above: Performed By: #### B MP ####[id number],[place] [address] BUN/Creatinine Ratio 16.0 RATIO Normal 8-21 [facility] Comment on above: Performed By: #### B MP ####[address],[place] [place] [address] Calcium 9.1 mg/dL Normal 8.5-10.4 [facility] Comment on above: Performed By: #### B MP ####[address],[facility] [place] [address] Chloride 98 mmol/L Normal 97-107 [facility] Comment on above: Performed By: #### B MP ####[address],[facility] [place] [address] CO2 25 mmol/L Normal 24-31 [facility] Comment on above: Performed By: #### B MP ####[address],[facility] [place] [address] Creatinine 0.5 mg/dL Normal 0.4-1.6 [facility] Comment on above: Performed By: #### B MP ####[address],[place] [address] eGFR (MDRD) Normal [facility] Comment on above: Result Comment: 134G FR ml/min/1.73m2 Stage -----90 160-89 230-59 315-29 4<15 5For -Americans, multiply EGFR result by 1.210Calculation not validated for patients under 18 years of age.Performed at [facility],[address] ,[facility] [address] Performed By: #### B MP ####[address],[facility] [place] [address] Glucose mass conc 331 mg/dL High 65-99 [facility] Comment on above: Performed By: #### B MP ####[address],[place] [address] Potassium molar conc 4.6 mmol/L Normal 3.4-5.1 [facility] Comment on above: Performed By: #### B MP ####[address],[place] [address] Sodium 134 mmol/L Normal 133-145 [facility] Comment on above: Performed By: #### B MP ####[address] [place] [address] Urea nitrogen 8 mg/dL Normal 8-25 [facility] Comment on above: Performed By: #### B MP ####[address] [place] [address] EKGon 05-16-2017 EKG EKGVentric ular Rate : 60 BPMAtrial Rate : 60 BPMP-R Interval : 166 msQRS Duration : 80 msQ-T Interval : 432 msQTC Calculation(Bezet) : 432 msCalculated P [place] : 63 degreesCalculated R [place] : 29 degreesCalculated T [place] : 35 degreesDiagnosis:Normal sinus rhythmNormal ECGNo previous ECGs availableConfirmed by Walter Slaughter ([id number]) on 05/16/2017 3:45:18 PM Normal [facility] HEMOGLOBIN,HCTon 05-16-2017 Hematocrit (HCT) High 36-44 [facility] Comment on above: Result Comment: 49.3 Performed at [facility],[address] [place] [address] Performed By: #### H H ####[address] [place] [address] Hemoglobin mass conc (Bld) 16.9 g/dL High 12.0-15.0 [facility] Comment on above: Performed By: #### H H ####[id number] [place] [address] Operative Reporton 8 Operative Report Normal [facility] POCT GLUCOSEon 05-16-2017 Glucose mass conc 268 mg/dL High 65-99 [facility] Comment on above: Performed By: #### P CGL ####[facility] [place] [address] Glucose mass conc 292 mg/dL High 65-99 [facility] Comment on above: Performed By: #### P CGL ####[facility] [address] [place] [address] Glucose mass conc 358 mg/dL High 65-99 [facility] Comment on above: Performed By: #### P CGL ####[facility] [address] [place] [address] Glucose mass conc 243 mg/dL High 65-99 [facility] Comment on above: Performed By: #### P CGL ####[facility] [place] [address] Vital Signs Date Time Vital Sign Value Performing Clinician Yue perez 01-12-2025 14:23-0400 Body height 170.18 cm hSantel Norton SILVICULTURIST Work Phone: [facility] 01-12-2025 14:23-0400 Body mass index (BMI) [Ratio] 30.5 kg/m2 Shantel Norton SILVICULTURIST Work Phone: [facility] 01-12-2025 14:23-0400 Body temperature 97 [degF] Shantel Norton SILVICULTURIST Work Phone: [facility] 01-12-2025 14:23-0400 Body weight 88.45 kg Shantel Norton SILVICULTURIST Work Phone: [facility] 01-12-2025 14:23-0400 Diastolic blood pressure 80 mm[Hg] Shantel Norton SILVICULTURIST Work Phone: [facility] 01-12-2025 14:23-0400 Heart rate 88 /min Shantel Norton SILVICULTURIST Work Phone: [facility] 01-12-2025 14:23-0400 SaO2% (BldA) [Mass fraction] 96 % Shantel Norton SILVICULTURIST Work Phone: [facility] 01-12-2025 14:23-0400 Systolic blood pressure 126 mm[Hg] Shantel Norton SILVICULTURIST Work Phone: [facility] 01-05-2025 13:32-0400 Body height 170.18 cm Shantel Norton SILVICULTURIST Work Phone: [facility] 01-05-2025 13:32-0400 Body mass index (BMI) [Ratio] 30.5 kg/m2 Shantel Norton APRN Work Phone: [facility] 01-05-2025 13:32-0400 Body weight 88.5 kg Shantel Yeesandra SILVICULTURIST Work Phone: [facility] 01-05-2025 13:32-0400 Diastolic blood pressure 70 mm[Hg] Shantel Corralzara SILVICULTURIST Work Phone: [facility] 01-05-2025 13:32-0400 Heart rate 79 /min Shantel Cierra SILVICULTURIST Work Phone: [facility] 01-05-2025 13:32-0400 Respiratory rate 18 /min Shantel Corralzara SILVICULTURIST Work Phone: [facility] 01-05-2025 13:32-0400 SaO2% (BldA) [Mass fraction] 96 % Shantel Corralzara SILVICULTURIST Work Phone: [facility] 01-05-2025 13:32-0400 Systolic blood pressure 115 mm[Hg] Shantel Cierra SILVICULTURIST Work Phone: [facility] 12-30-2024 13:47-0400 Body height 170.2 cm Roland Faust MD Work Phone: [facility] 12-30-2024 13:47-0400 Body mass index (BMI) [Ratio] 30.85 kg/m2 Roland Faust MD Work Phone: [facility] 12-30-2024 13:47-0400 Body weight 89.36 kg Roland Faust MD Work Phone: [facility] 12-30-2024 13:47-0400 Diastolic blood pressure 70 mm[Hg] Roland Faust MD Work Phone: [facility] 12-30-2024 13:47-0400 Heart rate 62 /min Roland Faust MD Work Phone: [facility] 12-30-2024 13:47-0400 Systolic blood pressure 100 mm[Hg] Roland Faust MD Work Phone: [facility] 12-15-2024 13:52-0400 Body height 170.18 cm Sandra Keita DO Work Phone: [facility] 12-15-2024 13:52-0400 Body mass index (BMI) [Ratio] 30.7 kg/m2 Sandra Keita DO Work Phone: [facility] 12-15-2024 13:52-0400 Body temperature 96.4 [degF] Sandra Keita DO Work Phone: [facility] 12-15-2024 13:52-0400 Body weight 88.9 kg Sandra Keita DO Work Phone: [facility] 12-15-2024 13:52-0400 Diastolic blood pressure 62 mm[Hg] Sandra Keita DO Work Phone: [facility] 12-15-2024 13:52-0400 Heart rate 79 /min Sandra Keita DO Work Phone: [facility] 12-15-2024 13:52-0400 SaO2% (BldA) [Mass fraction] 98 % Sandra Keita DO Work Phone: [facility] 12-15-2024 13:52-0400 Systolic blood pressure 98 mm[Hg] Sandra Keita DO Work Phone: [facility] 10-06-2024 13:57-0400 Body height 170.2 cm Oz Kincaid MD Work Phone: [facility] 10-06-2024 13:57-0400 Body mass index (BMI) [Ratio] 31.48 kg/m2 Oz Kincaid MD Work Phone: [facility] 10-06-2024 13:57-0400 Body weight 91.17 kg Oz Kincaid MD Work Phone: [facility] 10-01-2024 14:59-0400 Body height 170.18 cm Sandra Keita DO Work Phone: [facility] 10-01-2024 14:59-0400 Body mass index (BMI) [Ratio] 31.4 kg/m2 Sandra Keita DO Work Phone: [facility] 10-01-2024 14:59-0400 Body weight 91.17 kg Sandra Keita DO Work Phone: [facility] 10-01-2024 14:59-0400 Diastolic blood pressure 65 mm[Hg] Sandra Keita DO Work Phone: [facility] 10-01-2024 14:59-0400 Heart rate 65 /min Sandra Keita DO Work Phone: [facility] 10-01-2024 14:59-0400 SaO2% (BldA) [Mass fraction] 95 % Sandra Keita DO Work Phone: [facility] 10-01-2024 14:59-0400 Systolic blood pressure 86 mm[Hg] Sandra Keita DO Work Phone: [facility] 09-10-2024 13:30-0400 Diastolic blood pressure 76 mm[Hg] Sandra Keita DO Work Phone: [facility] 09-10-2024 13:30-0400 Heart rate 79 /min Sandra Keita DO Work Phone: [facility] 09-10-2024 13:30-0400 Respiratory rate 16 /min Sandra Keita DO Work Phone: [facility] 09-10-2024 13:30-0400 SaO2% (BldA) [Mass fraction] 95 % Sandra Keita DO Work Phone: [facility] 09-10-2024 13:30-0400 Systolic blood pressure 116 mm[Hg] Sandra Keita DO Work Phone: [facility] 09-10-2024 13:00-0400 Inhaled oxygen flow rate 2 L/min Sandra Keita DO Work Phone: [facility] 09-10-2024 11:07-0400 Body height 170.18 cm Sandra Keita DO Work Phone: [facility] 09-10-2024 11:07-0400 Body weight 90.71 kg Sandra Keita DO Work Phone: [facility] 09-07-2024 11:06-0400 Diastolic blood pressure 65 mm[Hg] Sandra Keita DO Work Phone: [facility] 09-07-2024 11:06-0400 Systolic blood pressure 112 mm[Hg] Sandra Keita DO Work Phone: [facility] 08-25-2024 13:37-0400 Body height 170.18 cm Sandra Keita DO Work Phone: [facility] 08-25-2024 13:37-0400 Body mass index (BMI) [Ratio] 31.8 kg/m2 Sandra Keita DO Work Phone: [facility] 08-25-2024 13:37-0400 Body weight 92.16 kg Sandra Keita DO Work Phone: [facility] 08-25-2024 13:37-0400 Diastolic blood pressure 66 mm[Hg] Sandra Keita DO Work Phone: [facility] 08-25-2024 13:37-0400 Heart rate 71 /min Sandra Keita DO Work Phone: [facility] 08-25-2024 13:37-0400 Respiratory rate 18 /min Sandra Keita DO Work Phone: [facility] 08-25-2024 13:37-0400 SaO2% (BldA) [Mass fraction] 96 % Sandra Keita DO Work Phone: [facility] 08-25-2024 13:37-0400 Systolic blood pressure 104 mm[Hg] Sandra Keita DO Work Phone: [facility] 08-20-2024 10:03-0400 Body height 170.18 cm Sandra Keita DO Work Phone: [facility] 08-20-2024 10:03-0400 Body mass index (BMI) [Ratio] 32.2 kg/m2 Sandra Keita DO Work Phone: [facility] 08-20-2024 10:03-0400 Body weight 93.3 kg Sandra Keita DO Work Phone: [facility] 08-20-2024 10:03-0400 Diastolic blood pressure 68 mm[Hg] Sandra Keita DO Work Phone: [facility] 08-20-2024 10:03-0400 Heart rate 64 /min Sandra Keita DO Work Phone: [facility] 08-20-2024 10:03-0400 Respiratory rate 18 /min Sandra Keita DO Work Phone: [facility] 08-20-2024 10:03-0400 SaO2% (BldA) [Mass fraction] 94 % Sandra Keita DO Work Phone: [facility] 08-20-2024 10:03-0400 Systolic blood pressure 138 mm[Hg] Sandra Keita DO Work Phone: [facility] 07-22-2024 11:19-0400 Body height 170.18 cm Sandra Keita DO Work Phone: [facility] 07-22-2024 11:19-0400 Body mass index (BMI) [Ratio] 31.3 kg/m2 Sandra Keita DO Work Phone: [facility] 07-22-2024 11:19-0400 Body temperature 98.2 [degF] Sandra Keita DO Work Phone: [facility] 07-22-2024 11:19-0400 Body weight 90.71 kg Sandra Keita DO Work Phone: [facility] 07-22-2024 11:19-0400 Diastolic blood pressure 68 mm[Hg] Sandra Keita DO Work Phone: [facility] 07-22-2024 11:19-0400 Heart rate 72 /min Sandra Keita DO Work Phone: [facility] 07-22-2024 11:19-0400 Respiratory rate 16 /min Sandra Keita DO Work Phone: [facility] 07-22-2024 11:19-0400 SaO2% (BldA) [Mass fraction] 98 % Sandra Keita DO Work Phone: [facility] 07-22-2024 11:19-0400 Systolic blood pressure 118 mm[Hg] Sandra Keita DO Work Phone: [facility] 07-21-2024 14:48-0400 Body height 170.2 cm Oz Kincaid MD Work Phone: [facility] 07-21-2024 14:48-0400 Body mass index (BMI) [Ratio] 31.32 kg/m2 Oz Kincaid MD Work Phone: [facility] 07-21-2024 14:48-0400 Body weight 90.72 kg Oz Kincaid MD Work Phone: [facility] 06-26-2024 09:46-0500 Body height 170.2 cm Roland Faust MD Work Phone: [facility] 06-26-2024 09:46-0500 Body mass index (BMI) [Ratio] 32.51 kg/m2 Roland Faust MD Work Phone: [facility] 06-26-2024 09:46-0500 Body weight 94.17 kg Roland Faust MD Work Phone: [facility] 06-26-2024 09:46-0500 Diastolic blood pressure 70 mm[Hg] Roland Faust MD Work Phone: [facility] 06-26-2024 09:46-0500 Heart rate 62 /min Roland Faust MD Work Phone: [facility] 06-26-2024 09:46-0500 Systolic blood pressure 116 mm[Hg] Roland Faust MD Work Phone: [facility] 05-07-2024 13:07-0500 Body height 170.18 cm Sandra Keita DO Work Phone: [facility] 05-07-2024 13:07-0500 Body mass index (BMI) [Ratio] 32.9 kg/m2 Sandra Keita DO Work Phone: [facility] 05-07-2024 13:07-0500 Body weight 95.3 kg Sandra Keita DO Work Phone: [facility] 05-07-2024 13:07-0500 Diastolic blood pressure 52 mm[Hg] Sandra Keita DO Work Phone: [facility] 05-07-2024 13:07-0500 Heart rate 64 /min Sandra Keita DO Work Phone: [facility] 05-07-2024 13:07-0500 Respiratory rate 18 /min Sandra Keita DO Work Phone: [facility] 05-07-2024 13:07-0500 SaO2% (BldA) [Mass fraction] 97 % Sandra Keita DO Work Phone: [facility] 05-07-2024 13:07-0500 Systolic blood pressure 82 mm[Hg] Sandra Keita DO Work Phone: [facility] 04-30-2024 08:25-0500 Body temperature 97.8 [degF] Sandra Keita DO Work Phone: [facility] 04-30-2024 08:25-0500 Diastolic blood pressure 83 mm[Hg] Sandra Keita DO Work Phone: [facility] 04-30-2024 08:25-0500 Heart rate 64 /min Sandra Keita DO Work Phone: [facility] 04-30-2024 08:25-0500 Respiratory rate 18 /min Sandra Keita DO Work Phone: [facility] 04-30-2024 08:25-0500 SaO2% (BldA) [Mass fraction] 96 % Sandra Keita DO Work Phone: [facility] 04-30-2024 08:25-0500 Systolic blood pressure 141 mm[Hg] Sandra Keita DO Work Phone: [facility] 04-30-2024 05:12-0500 Body weight 96.2 kg Sandra Keita DO Work Phone: [facility] 04-28-2024 23:40-0500 Body height 170.18 cm Sandra Keita DO Work Phone: [facility] 04-28-2024 23:19-0500 Diastolic blood pressure 68 mm[Hg] Sandra Keita DO Work Phone: [facility] 04-28-2024 23:19-0500 Heart rate 72 /min Sandra Keita DO Work Phone: [facility] 04-28-2024 23:19-0500 Respiratory rate 18 /min Sandra Keita DO Work Phone: [facility] 04-28-2024 23:19-0500 SaO2% (BldA) [Mass fraction] 98 % Sandra Keita DO Work Phone: [facility] 04-28-2024 23:19-0500 Systolic blood pressure 135 mm[Hg] Sandra Keita DO Work Phone: [facility] 04-28-2024 19:39-0500 Body height 170.18 cm Sandra Keita DO Work Phone: [facility] 04-28-2024 19:39-0500 Body temperature 98.1 [degF] Sandra Keita DO Work Phone: [facility] 04-28-2024 19:39-0500 Body weight 95.4 kg Sandra Keita DO Work Phone: [facility] 04-28-2024 11:35-0500 Body height 170.18 cm Sandra Keita DO Work Phone: [facility] 04-28-2024 11:35-0500 Body mass index (BMI) [Ratio] 32.5 kg/m2 Sandra Keita DO Work Phone: [facility] 04-28-2024 11:35-0500 Body weight 94.34 kg Sandra Keita DO Work Phone: [facility] 04-28-2024 11:35-0500 Diastolic blood pressure 58 mm[Hg] Sandra Keita DO Work Phone: [facility] 04-28-2024 11:35-0500 Heart rate 71 /min Sandra Keita DO Work Phone: [facility] 04-28-2024 11:35-0500 Respiratory rate 18 /min Sandra Keita DO Work Phone: [phone] [place] [address] 04-28-2024 11:35-0500 SaO2% (BldA) [Mass fraction] 94 % Sandra Keita DO Work Phone: [facility] 04-28-2024 11:35-0500 Systolic blood pressure 94 mm[Hg] Sandra Keita DO Work Phone: [facility] 04-28-2024 10:15-0500 Body height 170.18 cm Sandra Keita DO Work Phone: [facility] 04-28-2024 10:15-0500 Body mass index (BMI) [Ratio] 32.7 kg/m2 Sandra Keita DO Work Phone: [phone] [place] [address] 04-28-2024 10:15-0500 Body temperature 97.9 [degF] Sandra Keita DO Work Phone: [facility] 04-28-2024 10:15-0500 Body weight 94.8 kg Sandra Ekita DO Work Phone: [facility] 04-28-2024 10:15-0500 Diastolic blood pressure 64 mm[Hg] Sandra Keita DO Work Phone: [facility] 04-28-2024 10:15-0500 Heart rate 70 /min Sandra Keita DO Work Phone: [facility] 04-28-2024 10:15-0500 Respiratory rate 16 /min Sandra Keita DO Work Phone: [facility] 04-28-2024 10:15-0500 SaO2% (BldA) [Mass fraction] 96 % Sandra Keita DO Work Phone: [facility] 04-28-2024 10:15-0500 Systolic blood pressure 88 mm[Hg] Sandra Keita DO Work Phone: [facility] 04-27-2024 14:29-0500 Body height 170.18 cm Sandra Keita DO Work Phone: [facility] 04-27-2024 14:29-0500 Body temperature 98 [degF] Sandra Keita DO Work Phone: [facility] 04-27-2024 14:29-0500 Body weight 90.71 kg Sandra Keita DO Work Phone: [facility] 04-27-2024 14:29-0500 Diastolic blood pressure 61 mm[Hg] Sandra Keita DO Work Phone: [facility] 04-27-2024 14:29-0500 Heart rate 80 /min Sandra Keita DO Work Phone: [facility] 04-27-2024 14:29-0500 Respiratory rate 18 /min Sandra Keita DO Work Phone: [facility] 04-27-2024 14:29-0500 SaO2% (BldA) [Mass fraction] 93 % Sandra Keita DO Work Phone: [facility] 04-27-2024 14:29-0500 Systolic blood pressure 116 mm[Hg] Sandra Keita DO Work Phone: [facility] 04-14-2024 09:35-0500 Body height 170.18 cm Sandra Keita DO Work Phone: [facility] 04-14-2024 09:35-0500 Body mass index (BMI) [Ratio] 32.1 kg/m2 Sandra Keita DO Work Phone: [facility] 04-14-2024 09:35-0500 Body temperature 98 [degF] Sandra Keita DO Work Phone: [facility] 04-14-2024 09:35-0500 Body weight 92.98 kg Sandra Keita DO Work Phone: [facility] 04-14-2024 09:35-0500 Diastolic blood pressure 80 mm[Hg] Sandra Keita DO Work Phone: [facility] 04-14-2024 09:35-0500 Heart rate 78 /min Sandra Keita DO Work Phone: [facility] 04-14-2024 09:35-0500 Respiratory rate 20 /min Sandra Keita DO Work Phone: [facility] 04-14-2024 09:35-0500 SaO2% (BldA) [Mass fraction] 98 % Sandra Keita DO Work Phone: [facility] 04-14-2024 09:35-0500 Systolic blood pressure 126 mm[Hg] Sandra Keita DO Work Phone: [facility] 04-07-2024 13:26-0500 Body height 170.2 cm Oz Kincaid MD Work Phone: [facility] 04-07-2024 13:26-0500 Body mass index (BMI) [Ratio] 31.32 kg/m2 Oz Kincaid MD Work Phone: [facility] 04-07-2024 13:26-0500 Body weight 90.72 kg Oz Kincaid MD Work Phone: [facility] 03-25-2024 13:42-0500 Body height 170.2 cm Roland Faust MD Work Phone: [facility] 03-25-2024 13:42-0500 Body mass index (BMI) [Ratio] 32.58 kg/m2 Roland Faust MD Work Phone: [facility] 03-25-2024 13:42-0500 Body weight 94.35 kg Roland Faust MD Work Phone: [facility] 03-25-2024 13:42-0500 Diastolic blood pressure 64 mm[Hg] Roland Faust MD Work Phone: [facility] 03-25-2024 13:42-0500 Heart rate 63 /min Roland Faust MD Work Phone: [facility] 03-25-2024 13:42-0500 Systolic blood pressure 100 mm[Hg] Roland Faust MD Work Phone: [facility] 02-25-2024 13:55-0400 Body height 170.2 cm Oz Kincaid MD Work Phone: [facility] 02-25-2024 13:55-0400 Body mass index (BMI) [Ratio] 31.32 kg/m2 Oz Kincaid MD Work Phone: [facility] 02-25-2024 13:55-0400 Body weight 90.72 kg Oz Kincaid MD Work Phone: [facility] 02-25-2024 13:55-0400 Diastolic blood pressure 84 mm[Hg] Oz Kincaid MD Work Phone: [facility] 02-25-2024 13:55-0400 Heart rate 74 /min Oz Kincaid MD Work Phone: [facility] 02-25-2024 13:55-0400 Systolic blood pressure 130 mm[Hg] Oz Kincaid MD Work Phone: [facility] 02-14-2024 13:23-0400 Body height 170.18 cm Sandra Keita DO Work Phone: [facility] 02-14-2024 13:23-0400 Body weight 90.71 kg Sandra Keita DO Work Phone: [facility] 02-03-2024 11:56-0400 Body height 170.18 cm DO Sandra Keita Work Phone: [facility] 02-03-2024 11:56-0400 Body mass index (BMI) [Ratio] 31.6 kg/m2 DO Sandra Keita Work Phone: [facility] 02-03-2024 11:56-0400 Body weight 91.62 kg DO Sandra Debbie Work Phone: [facility] 02-03-2024 11:56-0400 Diastolic blood pressure 68 mm[Hg] DO Sandra Keita Work Phone: [facility] 02-03-2024 11:56-0400 Heart rate 63 /min DO Sandra Keita Work Phone: [facility] 02-03-2024 11:56-0400 Respiratory rate 18 /min DO Sandra Debbie Work Phone: [facility] 02-03-2024 11:56-0400 SaO2% (BldA) [Mass fraction] 98 % DO Sandra Debbie Work Phone: [facility] 02-03-2024 11:56-0400 Systolic blood pressure 100 mm[Hg] DO Sandra Debbie Work Phone: [facility] 01-15-2024 15:38-0400 Body height 170.18 cm DO Sandra Debbie Work Phone: [facility] 01-15-2024 15:38-0400 Body mass index (BMI) [Ratio] 31.3 kg/m2 DO Sandra Debbie Work Phone: [facility] 01-15-2024 15:38-0400 Body weight 90.77 kg DO Sandra Keita Work Phone: [facility] 01-07-2024 13:18-0400 Body height 170.2 cm Oz Kincaid MD Work Phone: [facility] 01-07-2024 13:18-0400 Body mass index (BMI) [Ratio] 31.32 kg/m2 Oz Kincaid MD Work Phone: [facility] 01-07-2024 13:18-0400 Body weight 90.72 kg Oz Kincaid MD Work Phone: [facility] 01-07-2024 13:18-0400 Diastolic blood pressure 74 mm[Hg] Oz Kincaid MD Work Phone: [facility] 01-07-2024 13:18-0400 Heart rate 62 /min Oz Kincaid MD Work Phone: [facility] 01-07-2024 13:18-0400 Systolic blood pressure 107 mm[Hg] Oz Kincaid MD Work Phone: [facility] 12-16-2023 10:40-0400 Body height 170.2 cm Roland Faust MD Work Phone: [facility] 12-16-2023 10:40-0400 Body mass index (BMI) [Ratio] 30.48 kg/m2 Roland Faust MD Work Phone: [facility] 12-16-2023 10:40-0400 Body weight 88.27 kg Roland Faust MD Work Phone: [facility] 12-16-2023 10:40-0400 Diastolic blood pressure 64 mm[Hg] Roland Faust MD Work Phone: [facility] 12-16-2023 10:40-0400 Heart rate 73 /min Roland Faust MD Work Phone: [facility] 12-16-2023 10:40-0400 Systolic blood pressure 102 mm[Hg] Roland Faust MD Work Phone: [facility] 11-18-2023 13:14-0400 Body height 170.18 cm DO Sandra Keita Work Phone: [facility] 11-18-2023 13:14-0400 Body mass index (BMI) [Ratio] 28.6 kg/m2 DO Sandra Keita Work Phone: [facility] 11-18-2023 13:14-0400 Body weight 83 kg DO Sandra Keita Work Phone: [facility] 11-18-2023 13:14-0400 Diastolic blood pressure 62 mm[Hg] DO Sandra Keita Work Phone: [facility] 11-18-2023 13:14-0400 Heart rate 54 /min DO Sandra Keita Work Phone: [facility] 11-18-2023 13:14-0400 Respiratory rate 18 /min DO Sandra Keita Work Phone: [facility] 11-18-2023 13:14-0400 SaO2% (BldA) [Mass fraction] 97 % DO Sandra Keita Work Phone: [facility] 11-18-2023 13:14-0400 Systolic blood pressure 96 mm[Hg] DO Sandra Keita Work Phone: [facility] 11-14-2023 15:07-0400 Body height 170.18 cm DO Sandra Keita Work Phone: [facility] 11-14-2023 15:07-0400 Body mass index (BMI) [Ratio] 28.5 kg/m2 DO Sandra Keita Work Phone: [facility] 11-14-2023 15:07-0400 Body weight 82.8 kg DO Sandra Keita Work Phone: [facility] 11-14-2023 15:07-0400 Diastolic blood pressure 72 mm[Hg] DO Sandra Keita Work Phone: [facility] 11-14-2023 15:07-0400 Heart rate 67 /min DO Sandra Keita Work Phone: [facility] 11-14-2023 15:07-0400 Respiratory rate 18 /min DO Sandra Keita Work Phone: [facility] 11-14-2023 15:07-0400 SaO2% (BldA) [Mass fraction] 97 % DO Sandra Keita Work Phone: [facility] 11-14-2023 15:07-0400 Systolic blood pressure 110 mm[Hg] DO Sandra Keita Work Phone: [facility] 11-13-2023 13:54-0400 Body height 170.2 cm Jonas Ch MD Work Phone: [facility] 11-13-2023 13:54-0400 Body mass index (BMI) [Ratio] 28.19 kg/m2 Jonas Ch MD Work Phone: [facility] 11-13-2023 13:54-0400 Body weight 81.65 kg Jonas Ch MD Work Phone: [facility] 11-13-2023 13:54-0400 Diastolic blood pressure 70 mm[Hg] Jonas Ch MD Work Phone: [facility] 11-13-2023 13:54-0400 Heart rate 87 /min Jonas Ch MD Work Phone: [facility] 11-13-2023 13:54-0400 Systolic blood pressure 108 mm[Hg] Jonas Ch MD Work Phone: [facility] 11-12-2023 16:12-0400 Diastolic blood pressure 83 mm[Hg] DO Sandra Keita Work Phone: [facility] 11-12-2023 16:12-0400 Heart rate 61 /min DO Sandra Keita Work Phone: [facility] 11-12-2023 16:12-0400 Respiratory rate 16 /min DO Sandra Keita Work Phone: [facility] 11-12-2023 16:12-0400 SaO2% (BldA) [Mass fraction] 96 % DO Sandra Keita Work Phone: [facility] 11-12-2023 16:12-0400 Systolic blood pressure 149 mm[Hg] DO Sandra Keita Work Phone: [facility] 11-12-2023 12:16-0400 Body temperature 97.5 [degF] DO Sandra Keita Work Phone: [facility] 11-12-2023 06:00-0400 Body weight 83.5 kg DO Sandra Keita Work Phone: [facility] 11-10-2023 08:23-0400 Body height 170.18 cm DO Sandra Keita Work Phone: [facility] 11-10-2023 05:05-0400 Diastolic blood pressure 67 mm[Hg] DO Sandra Keita Work Phone: [facility] 11-10-2023 05:05-0400 Heart rate 62 /min DO Sandra Keita Work Phone: [facility] 11-10-2023 05:05-0400 Respiratory rate 18 /min DO Sandra Keita Work Phone: [facility] 11-10-2023 05:05-0400 SaO2% (BldA) [Mass fraction] 100 % DO Sandra Keita Work Phone: [facility] 11-10-2023 05:05-0400 Systolic blood pressure 144 mm[Hg] DO Sandra Keita Work Phone: [facility] 11-10-2023 03:44-0400 Body temperature 98.1 [degF] DO Sandra Keita Work Phone: [facility] 11-09-2023 22:16-0400 Body height 170.18 cm DO Sandra Keita Work Phone: [facility] 11-09-2023 22:16-0400 Body weight 81.64 kg DO Sandra Keita Work Phone: [facility] 11-05-2023 12:36-0400 SaO2% (BldA) [Mass fraction] 100 % DO Sandra Keita Work Phone: [facility] 10-07-2023 09:48-0400 Body height 170.2 cm Jonas Ch MD Work Phone: [facility] 10-07-2023 09:48-0400 Body mass index (BMI) [Ratio] 28.19 kg/m2 Jonas Ch MD Work Phone: [facility] 10-07-2023 09:48-0400 Body weight 81.65 kg Jonas hC MD Work Phone: [facility] 10-07-2023 09:48-0400 Diastolic blood pressure 90 mm[Hg] Jonas Ch MD Work Phone: [facility] 10-07-2023 09:48-0400 Heart rate 92 /min Jonas Ch MD Work Phone: [facility] 10-07-2023 09:48-0400 Systolic blood pressure 114 mm[Hg] Jonas Ch MD Work Phone: [facility] 09-17-2023 13:02-0400 Body height 167.64 cm DO Sandra Keita Work Phone: [facility] 09-17-2023 13:02-0400 Body mass index (BMI) [Ratio] 29 kg/m2 DO Sandra Keita Work Phone: [facility] 09-17-2023 13:02-0400 Body weight 81.67 kg DO Sandra Keita Work Phone: [facility] 09-17-2023 13:02-0400 Diastolic blood pressure 64 mm[Hg] DO Sandra Keita Work Phone: [facility] 09-17-2023 13:02-0400 Heart rate 117 /min DO Sandra Keita Work Phone: [facility] 09-17-2023 13:02-0400 Respiratory rate 18 /min DO Sandra Keita Work Phone: [facility] 09-17-2023 13:02-0400 SaO2% (BldA) [Mass fraction] 99 % DO Sandra Keita Work Phone: [facility] 09-17-2023 13:02-0400 Systolic blood pressure 92 mm[Hg] DO Sandra Keita Work Phone: [facility] 09-14-2023 16:11-0400 Body temperature 97.7 [degF] DO Sandra Keita Work Phone: [facility] 09-14-2023 16:11-0400 Diastolic blood pressure 70 mm[Hg] DO Sandra Keita Work Phone: [facility] 09-14-2023 16:11-0400 Heart rate 74 /min DO Sandra Keita Work Phone: [facility] 09-14-2023 16:11-0400 Respiratory rate 17 /min DO Sandra Keita Work Phone: [facility] 09-14-2023 16:11-0400 SaO2% (BldA) [Mass fraction] 95 % DO Sandra Keita Work Phone: [facility] 09-14-2023 16:11-0400 Systolic blood pressure 115 mm[Hg] DO Sandra Keita Work Phone: [facility] 09-14-2023 06:00-0400 Body weight 83.2 kg DO Sandra Keita Work Phone: [facility] 09-13-2023 12:41-0400 Body height 170.18 cm DO Sandra Keita Work Phone: [facility] 09-12-2023 13:58-0400 Body height 167.64 cm DO Sandra Debbie Work Phone: [facility] 09-12-2023 13:58-0400 Body mass index (BMI) [Ratio] 29 kg/m2 DO Sandra Debbie Work Phone: [facility] 09-12-2023 13:58-0400 Body weight 81.64 kg DO Sandra Debbie Work Phone: [facility] 09-12-2023 13:58-0400 Diastolic blood pressure 81 mm[Hg] DO Sandra Debbie Work Phone: [facility] 09-12-2023 13:58-0400 Heart rate 135 /min DO Sandra Debbie Work Phone: [facility] 09-12-2023 13:58-0400 Respiratory rate 18 /min DO Sandrarebecca Keita Work Phone: [facility] 09-12-2023 13:58-0400 SaO2% (BldA) [Mass fraction] 97 % DO Sandrarebecca Keita Work Phone: [facility] 09-12-2023 13:58-0400 Systolic blood pressure 112 mm[Hg] DO Sandrarebecca Keita Work Phone: [facility] 07-17-2023 11:43-0400 Body height 167.[address] [facility] 07-17-2023 11:43-0400 Body mass index (BMI) [Ratio] 28.8 kg/m2 [facility] 07-17-2023 11:43-0400 Body temperature 97.8 [degF] [facility] 07-17-2023 11:43-0400 Body weight 81.[address] [facility] 07-17-2023 11:43-0400 Diastolic blood pressure 64 mm[Hg] [facility] 07-17-2023 11:43-0400 Heart rate 78 /min [facility] 07-17-2023 11:43-0400 Respiratory rate 16 /min [facility] 07-17-2023 11:43-0400 SaO2% (BldA) [Mass fraction] 98 % [facility] 07-17-2023 11:43-0400 Systolic blood pressure 112 mm[Hg] [facility] 06-19-2023 15:53-0500 Body height 167.[address] [facility] 06-19-2023 15:53-0500 Body mass index (BMI) [Ratio] 28.9 kg/m2 [facility] 06-19-2023 15:53-0500 Body weight 81.[address] [facility] 06-19-2023 15:53-0500 Diastolic blood pressure 68 mm[Hg] [facility] 06-19-2023 15:53-0500 Heart rate 95 /min [facility] 06-19-2023 15:53-0500 Respiratory rate 18 /min [facility] 06-19-2023 15:53-0500 SaO2% (BldA) [Mass fraction] 97 % [facility] 06-19-2023 15:53-0500 Systolic blood pressure 92 mm[Hg] [facility] 06-12-2023 15:38-0500 Body height 167.[address] [facility] 06-12-2023 15:38-0500 Body mass index (BMI) [Ratio] 28.5 kg/m2 [facility] 06-12-2023 15:38-0500 Body weight 80.[address] [facility] 06-12-2023 15:38-0500 Diastolic blood pressure 72 mm[Hg] [facility] 06-12-2023 15:38-0500 Heart rate 95 /min [facility] 06-12-2023 15:38-0500 Respiratory rate 18 /min [facility] 06-12-2023 15:38-0500 SaO2% (BldA) [Mass fraction] 99 % [facility] 06-12-2023 15:38-0500 Systolic blood pressure 111 mm[Hg] [facility] 03-04-2023 15:00-0500 Body height 167.64 cm Sandra Keita Other [employer] Other 03-04-2023 15:00-0500 Body mass index (BMI) [Ratio] 29.97 kg/m2 Sandra Keita Other [employer] Other 03-04-2023 15:00-0500 Body weight 84.23 kg Sandra Keita Other [employer] Other 03-04-2023 15:00-0500 Diastolic blood pressure 68 mm[Hg] Sandra Keita Other [employer] Other 03-04-2023 15:00-0500 Respiratory rate 18 /min Sandrarebecca Keita Other [employer] Other 03-04-2023 15:00-0500 SaO2% (BldA) [Mass fraction] 96 % Sandra Debbie Other [employer] Other 03-04-2023 15:00-0500 Systolic blood pressure 98 mm[Hg] Sandra Keita Other [employer] Other 01-07-2023 14:00-0400 Body height 167.64 cm Tondra Mapus Other [employer] Other 01-07-2023 14:00-0400 Body mass index (BMI) [Ratio] 30.03 kg/m2 Tondra Mapus Other [facility] Other 01-07-2023 14:00-0400 Body weight 84.41 kg Tondra Mapus Other [facility] Other 01-07-2023 14:00-0400 Diastolic blood pressure 68 mm[Hg] Tondra Mapus Other [employer] Other 01-07-2023 14:00-0400 Respiratory rate 18 /min Tondra Mapus Other [employer] Other 01-07-2023 14:00-0400 SaO2% (BldA) [Mass fraction] 98 % Tondra Mapus Other [employer] Other 01-07-2023 14:00-0400 Systolic blood pressure 102 mm[Hg] Tondra Mapus Other [employer] Other 01-02-2023 11:00-0400 Body height 167.64 cm Brayden Noble Other [employer] Other 01-02-2023 11:00-0400 Body mass index (BMI) [Ratio] 29.7 kg/m2 Brayden Noble Other [employer] Other 01-02-2023 11:00-0400 Body weight 83.46 kg Brayden Noble Other [employer] Other 01-02-2023 11:00-0400 Diastolic blood pressure 78 mm[Hg] Brayden Noble Other [facility] Other 01-02-2023 11:00-0400 Systolic blood pressure 120 mm[Hg] Brayden Noble Other [employer] Other 11-28-2022 15:00-0400 Body height 167.64 cm Sandra Keita Other [employer] Other 11-28-2022 15:00-0400 Body mass index (BMI) [Ratio] 29.58 kg/m2 Sandra Keita Other [employer] Other 11-28-2022 15:00-0400 Body weight 83.14 kg Sandra Keita Other [facility] Other 11-28-2022 15:00-0400 Diastolic blood pressure 72 mm[Hg] Sandra Keita Other [employer] Other 11-28-2022 15:00-0400 Respiratory rate 20 /min Sandra Keita Other [employer] Other 11-28-2022 15:00-0400 SaO2% (BldA) [Mass fraction] 99 % Sandra Keita Other [employer] Other 11-28-2022 15:00-0400 Systolic blood pressure 115 mm[Hg] Sandra Keita Other [employer] Other 09-27-2022 14:15-0400 Body height 167.64 cm Tondra Mapus Other [employer] Other 09-27-2022 14:15-0400 Body mass index (BMI) [Ratio] 29.53 kg/m2 Tondra Mapus Other [employer] Other 09-27-2022 14:15-0400 Body weight 83.01 kg Tondra Mapus Other [facility] Other 09-27-2022 14:15-0400 Diastolic blood pressure 66 mm[Hg] Tondra Mapus Other [employer] Other 09-27-2022 14:15-0400 Respiratory rate 18 /min Tondra Mapus Other [facility] Other 09-27-2022 14:15-0400 SaO2% (BldA) [Mass fraction] 97 % Tondra Mapus Other [facility] Other 09-27-2022 14:15-0400 Systolic blood pressure 100 mm[Hg] Tondra Mapus Other [facility] Other 08-09-2022 16:15-0400 Body height 167.64 cm Sandra Keita Other [facility] Other 08-09-2022 16:15-0400 Body mass index (BMI) [Ratio] 29.86 kg/m2 Sandrajacob Keita Other [employer] Other 08-09-2022 16:15-0400 Body weight 83.92 kg Sandrajacob Keita Other [facility] Other 08-09-2022 16:15-0400 Diastolic blood pressure 74 mm[Hg] Sandra Debbie Other [facility] Other 08-09-2022 16:15-0400 Respiratory rate 18 /min Sandrarebecca Keita Other [employer] Other 08-09-2022 16:15-0400 SaO2% (BldA) [Mass fraction] 97 % Sandrajacob Keita Other [facility] Other 08-09-2022 16:15-0400 Systolic blood pressure 118 mm[Hg] Sandra Keita Other [employer] Other 06-18-2022 15:30-0500 Body height 167.64 cm Tondra Mapus Other [facility] Other 06-18-2022 15:30-0500 Body mass index (BMI) [Ratio] 35.34 kg/m2 Tondra Mapus Other [facility] Other 06-18-2022 15:30-0500 Body weight 99.34 kg Tondra Mapus Other [facility] Other 06-18-2022 15:30-0500 Diastolic blood pressure 72 mm[Hg] Tondra Mapus Other [facility] Other 06-18-2022 15:30-0500 Respiratory rate 18 /min Tondra Mapus Other [facility] Other 06-18-2022 15:30-0500 SaO2% (BldA) [Mass fraction] 97 % Tondra Mapus Other [facility] Other 06-18-2022 15:30-0500 Systolic blood pressure 108 mm[Hg] Tondra Mapus Other [facility] Other 01-09-2022 14:00-0400 Body height 167.64 cm Tondra Mapus Other [facility] Other 01-09-2022 14:00-0400 Body mass index (BMI) [Ratio] 28.73 kg/m2 Tondra Mapus Other [facility] [facility] Other 01-09-2022 14:00-0400 Body weight 80.74 kg Tondra Mapus Other [facility] [facility] Other 01-09-2022 14:00-0400 Diastolic blood pressure 79 mm[Hg] Tondra Mapus Other [facility] Other 01-09-2022 14:00-0400 Respiratory rate 16 /min Tondra Mapus Other [facility] Other 01-09-2022 14:00-0400 SaO2% (BldA) [Mass fraction] 97 % Tondra Mapus Other [facility] Other 01-09-2022 14:00-0400 Systolic blood pressure 127 mm[Hg] Tondra Mapus Other [employer] Other 12-17-2021 08:23-0400 Diastolic blood pressure 63 mm[Hg[facility] 08:23-0400 Heart rate 82 /min DO Tray Jer [facility] 12-17-2021 08:23-0400 Respiratory rate 18 /min DO Tray Randle [facility] 12-17-2021 08:23-0400 SaO2% (BldA) [Mass fraction] 98 % [facility] 12-17-2021 08:23-0400 Systolic blood pressure 135 mm[Hg] [facility] 12-17-2021 05:29-0400 Body height 170.18 [facility]21 05:29-0400 Body temperature 97.4 [degF] [facility] 05:29-0400 Body weight 82.55 [facility] [place] [facility]-14-2021 06:58-0400 Body height 170.18 cm [facility] [place] 12-14-2021 06:58-0400 Body mass index (BMI) [Ratio] 29.2 kg/m2 DO Tray Randle [facility] 12-14-2021 06:58-0400 Body weight 84.8 kg [facility] [place] 12-13-2021 11:06-0400 Body temperature 97.7 [degF] DO Tray Randle [facility] 12-13-2021 11:06-0400 Diastolic blood pressure 67 mm[Hg] DO [facility] Jer [facility] 12-13-2021 11:06-0400 Heart rate 88 /min DO Tray Randle [facility] 12-13-2021 11:06-0400 Respiratory rate 16 /min DO Tray Randle [facility] 12-13-2021 11:06-0400 SaO2% (BldA) [Mass fraction] 93 % DO [facility] Jer [facility] 12-13-2021 11:06-0400 Systolic blood pressure 119 mm[Hg] DO Trayumu Randle [facility] 12-13-2021 08:00-0400 Inhaled oxygen flow rate 3 L/min DO Trayumu Randle [facility] 10-12-2021 11:00-0400 Body height 167.64 cm Crispin Looney Other [employer] Other 10-12-2021 11:00-0400 Body mass index (BMI) [Ratio] 29.81 kg/m2 Crispin Looney Other [employer] Other 10-12-2021 11:00-0400 Body weight 83.78 kg Crispin Looney Other [facility] Other 10-12-2021 11:00-0400 Diastolic blood pressure 68 mm[Hg] Crispin Looney Other [facility] Other 10-12-2021 11:00-0400 Respiratory rate 18 /min Crispin Looney Other [facility] Other 10-12-2021 11:00-0400 SaO2% (BldA) [Mass fraction] 97 % Crispin Looney Other [employer] Other 10-12-2021 11:00-0400 Systolic blood pressure 97 mm[Hg] Crispin Looney Other [employer] Other 07-10-2021 14:30-0400 Body height 167.64 cm Tondra Mapus Other [facility] Other 07-10-2021 14:30-0400 Body mass index (BMI) [Ratio] 30.34 kg/m2 Tondra Mapus Other [facility] Other 07-10-2021 14:30-0400 Body weight 85.28 kg Tondra Mapus Other [facility] Other 07-10-2021 14:30-0400 Diastolic blood pressure 60 mm[Hg] Tondra Mapus Other [facility] Other 07-10-2021 14:30-0400 Respiratory rate 16 /min Tondra Mapus Other [facility] Other 07-10-2021 14:30-0400 SaO2% (BldA) [Mass fraction] 97 % Tondra Mapus Other [facility] Other 07-10-2021 14:30-0400 Systolic blood pressure 89 mm[Hg] Tondra Mapus Other [facility] Other 07-03-2021 16:00-0500 Body height 167.64 cm Ruben Avendañoban Other [employer] Other 07-03-2021 16:00-0500 Body mass index (BMI) [Ratio] 30.5 kg/m2 Ruben Avendañoban Other [employer] Other 07-03-2021 16:00-0500 Body temperature 95.5 [degF] Ruben Avendañoban Other [employer] Other 07-03-2021 16:00-0500 Body weight 85.73 kg Ruben Avendañoban Other [facility] Other 07-03-2021 16:00-0500 Diastolic blood pressure 68 mm[Hg] Gaudencioal Chaban Other [employer] Other 07-03-2021 16:00-0500 SaO2% (BldA) [Mass fraction] 99 % Ruben Chaban Other [facility] Other 07-03-2021 16:00-0500 Systolic blood pressure 94 mm[Hg] Gaudencioal Chaban Other [facility] Other 05-08-2021 14:15-0500 Body height 167.64 cm Crispin Looney Other [employer] Other 05-08-2021 14:15-0500 Body mass index (BMI) [Ratio] 30.87 kg/m2 Crispin Looney Other [employer] Other 05-08-2021 14:15-0500 Body weight 86.77 kg Crispin Looney Other [facility] Other 05-08-2021 14:15-0500 Diastolic blood pressure 58 mm[Hg] Crispin Looney Other [facility] Other 05-08-2021 14:15-0500 Respiratory rate 20 /min Crispin Looney Other [facility] Other 05-08-2021 14:15-0500 SaO2% (BldA) [Mass fraction] 98 % Crispin Looney Other [facility] Other 05-08-2021 14:15-0500 Systolic blood pressure 102 mm[Hg] Crispin Looney Other [facility] Other 04-03-2021 15:00-0500 Body height 167.64 cm Tray Nava Other [facility] Other 04-03-2021 15:00-0500 Body mass index (BMI) [Ratio] 30.99 kg/m2 Tray Nava Other [facility] [facility] Other 04-03-2021 15:00-0500 Body temperature 98.3 [degF] Tray Nava Other [facility] [facility] Other 04-03-2021 15:00-0500 Body weight 87.09 kg Tray Nava Other [facility] [facility] Other 04-03-2021 15:00-0500 Diastolic blood pressure 68 mm[Hg] Tray Nava Other [facility] [facility] Other 04-03-2021 15:00-0500 SaO2% (BldA) [Mass fraction] 93 % Tray Nava Other [facility] [facility] Other 04-03-2021 15:00-0500 Systolic blood pressure 110 mm[Hg] Tray Nava Other [facility] [facility] Other 03-27-2021 15:00-0500 Body height 167.64 cm Tondra Mapus Other [facility] [facility] Other 03-27-2021 15:00-0500 Body mass index (BMI) [Ratio] 30.99 kg/m2 Tondra Mapus Other [facility] [facility] Other 03-27-2021 15:00-0500 Body weight 87.09 kg Tondra Mapus Other [facility] [facility] Other 03-27-2021 15:00-0500 Diastolic blood pressure 75 mm[Hg] Tondra Mapus Other [facility] [facility] Other 03-27-2021 15:00-0500 Respiratory rate 20 /min Tondra Mapus Other [facility] Other 03-27-2021 15:00-0500 SaO2% (BldA) [Mass fraction] 97 % Tondra Mapus Other [facility] [facility] Other 03-27-2021 15:00-0500 Systolic blood pressure 124 mm[Hg] Tondra Mapus Other [facility] [facility] Other 02-27-2021 16:00-0400 Body height 167.64 cm Tray Nava Other [facility] [facility] Other 02-27-2021 16:00-0400 Body mass index (BMI) [Ratio] 30.66 kg/m2 Tray Ceballospratibha Other [facility] Other 02-27-2021 16:00-0400 Body weight 86.18 kg Tray Ceballospratibha Other [facility] Other 02-27-2021 16:00-0400 Diastolic blood pressure 76 mm[Hg] Tray Ceballospratibha Other [facility] Other 02-27-2021 16:00-0400 Systolic blood pressure 123 mm[Hg] Tray Ceballospratibha Other [employer] Other 08-27-2017 12:01-0400 Body height 170.18 cm DO Jonas Yoder Work Phone: [facility] Encounters Encounter Date Encounter Type Care Provider Facility Start: 01-19-2025 End: 01-19-2025 ambulatory OZ KINCAID Not Available Start: 01-19-2025 End: 01-19-2025 Yasmin Kincaid MD Work Phone: [facility] Start: 01-19-2025 End: 01-19-2025 Yasmin Kincaid MD Work Phone: [facility] Start: 01-12-2025 End: 01-12-2025 ambulatory Shantel Norton APRN Work Phone: [facility] Work Phone: Start: 01-12-2025 End: 01-12-2025 Patient encounter procedure Shantel Norton APRN [facility] Work Phone: Start: 01-05-2025 End: 01-05-2025 ambulatory Shantel Norton APRN Work Phone: [facility] Work Phone: Start: 01-05-2025 End: 01-05-2025 Patient encounter procedure Angelique Russell ASSISTANT DIRECTOR OF ADMISSIONS-[facility] Work Phone: Start: 12-31-2024 End: 12-31-2024 ambulatory OZ KINCAID Not Available Start: 12-31-2024 Non-patient / Non-visit Samm disla MD -[facility] Work Phone: Start: 12-30-2024 End: 12-30-2024 Office outpatient visit 15 minutes Roland Faust MD Work Phone: [facility] Comment on above: Typical atrial flutt er (Multi) (Primary Dx); Nonischemic cardiomyopathy (Multi); Hypertension, unspecified type; Hypercholesteremia; Obesity (BMI 30-39.9); Current smoker Start: 12-30-2024 End: 12-30-[address] [facility] Ambulatory Start: 12-24-2024 End: 12-24-2024 Patient encounter procedure Samm Medina MD -[facility] Work Phone: Start: 12-24-2024 End: 12-24-2024 ambulatory Sandra Keita DO Work Phone: [facility] Work Phone: Start: 12-18-2024 End: 12-18-2024 Patient encounter procedure Oz Kincaid MD Work Phone: [facility] Comment on above: Numbness (Primary Dx ); Paresthesias; Pain in both lower extremities; Lumbosacral radiculopathy at L5 Start: 12-18-2024 End: 12-18-2024 ambulatory OZ KINCAID Not Available Start: 12-15-2024 End: 12-15-2024 ambulatory Sandra Keita DO Work Phone: [facility] Work Phone: Start: 12-15-2024 End: 12-15-2024 Patient encounter procedure Shantel Cierra SILVICULTURIST RECORDS MANAGEMENT ASSISTANT -[facility] Work Phone: Start: 12-11-2024 End: 12-11-2024 ambulatory OZ KINCAID Not Available Start: 12-11-2024 End: 12-11-2024 Patient encounter procedure Oz Kincaid MD Work Phone: [facility] Comment on above: Hand weakness [...] [facility] Start: 11-23-2024 End: 11-23-2024 Bamboo flowsheet Karl Fritz DPM Work Phone: [facility] Start: 11-16-2024 End: 11-16-2024 Departed Referred Karl Fritz DPM -[facility] [place] Work Phone: Start: 11-16-2024 End: 11-16-2024 Office outpatient visit 25 minutes Karl Fritz DPM Work Phone: [facility] Comment on above: Ulcer of right foot with fat layer exposed (HCC) (Primary Dx); 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); Cellulitis of right foot; Deformity of toe, right Start: 11-16-2024 End: 11-16-2024 ambulatory Sandra Keita Work Phone: [facility] Work Phone: Start: 11-16-2024 End: 11-17-2024 External Result Encounter Karl Fritz DPM Work Phone: [facility] External Department Unsolicited Start: 11-16-2024 End: 11-17-2024 External Result Encounter Karl Fritz DPM Work Phone: [facility] External Department Unsolicited Start: 11-09-2024 End: 11-09-2024 ambulatory Halie Marc MD Facility:[facility] Start: 10-31-2024 End: 11-02-2024 Refill Oz Kincaid MD Work Phone: [facility] Comment on above: Neurogenic pain Start: 10-21-2024 End: 10-21-2024 Telephone encounter Oz Kincaid MD Work Phone: [facility] Start: 10-20-2024 End: 10-20-2024 Bamboo flowsheet Karl Fritz DPM Work Phone: [facility] Start: 10-20-2024 End: 10-20-2024 Bamboo flowsheet Karl Fritz DPM Work Phone: [facility] Start: 10-20-2024 End: 10-20-2024 Office outpatient visit 25 minutes Karl Fritz DPM Work Phone: [facility] Comment on above: Ulcer of right foot with fat layer exposed (HCC) (Primary Dx); 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); Blister of right foot, initial encounter; Deformity, foot, right Start: 10-20-2024 End: 10-20-2024 ambulatory KARL FRITZ Not Available Start: 10-07-2024 End: 10-07-2024 Telephone encounter Oz Kincaid MD Work Phone: [facility] Start: 10-06-2024 End: 10-06-2024 Bamboo flowsheet Oz Kincaid MD Work Phone: [facility] Start: 10-06-2024 End: 10-06-2024 Bamboo flowsheet Oz Kincaid MD Work Phone: [facility] BM NEUROLOGY Start: 10-06-2024 End: 10-06-2024 Office outpatient visit 25 minutes Oz Kincaid MD Work Phone: [facility] SWS NEUR B Comment on above: Weakness of both low er extremities (Primary Dx); Carpal tunnel syndrome, bilateral; Cognitive decline; Cervical paraspinal muscle spasm; B12 deficiency; Guyon syndrome, unspecified laterality; Numbness; Leg pain, left; Leg pain, right; Bilateral leg weakness Start: 10-06-2024 End: 10-06-2024 ambulatory OZ KINCAID Not Available Start: 10-05-2024 End: 10-05-2024 ambulatory Halie Marc MD Facility:[facility] Start: 10-01-2024 End: 10-01-2024 ambulatory Sandra Keita DO Work Phone: [facility] Work Phone: Start: 10-01-2024 End: 10-01-2024 Patient encounter procedure Sandra Keita DO Work Phone: [facility] Sleep Lab Work Phone: Start: 09-10-2024 Non-patient / Non-visit Sandra Keita DO Work Phone: [facility] Health Gastro Work Phone: Start: 09-10-2024 End: 09-10-2024 Admission to same day surgery center Sandra Keita DO Work Phone: [facility] Work Phone: Start: 09-10-2024 End: 09-10-2024 ambulatory Sandra A Keita DO Work Phone: [facility] Work Phone: Start: 09-07-2024 End: 09-07-2024 ambulatory Sandra A Keita DO Work Phone: [facility] Work Phone: Start: 09-07-2024 End: 09-07-2024 Patient encounter procedure Sandra Keita DO Work Phone: [facility] [place] Neurosurgery Work Phone: Start: 08-25-2024 End: 08-25-2024 ambulatory Sandra A Keita DO Work Phone: [facility] Work Phone: Start: 08-25-2024 End: 08-25-2024 Patient encounter procedure Sandra Keita DO Work Phone: [facility] Medicine [place] Work Phone: Start: 08-20-2024 End: 08-20-2024 ambulatory Sandra A Keita DO Work Phone: [facility] Work Phone: Start: 08-20-2024 End: 08-20-2024 Patient encounter procedure Sandra Keita DO Work Phone: [facility] Work Phone: Start: 07-22-2024 End: 07-22-2024 Patient encounter procedure Sandra Keita DO Work Phone: [facility] [place] Vascular Surg Work Phone: Start: 07-22-2024 End: 07-22-2024 ambulatory Sandra A Keita DO Work Phone: [facility] Work Phone: Start: 07-21-2024 End: 07-21-2024 Office [...] ambulatory Sandra Rebecca Keita DO Work Phone: [facility] Work Phone: Start: 07-06-2024 End: 07-06-2024 Departed Referred Sandra Keita DO Work Phone: [facility] Ctr-LAB Path Spec Ac Hosp Start: 06-26-2024 End: 06-29-2024 External Result Encounter Nataliya Jane SENIOR PROGRAM MANAGER Other Phone: [facility] External Department Unsolicited Start: 06-26-2024 End: 06-29-2024 External Result Encounter Nataliya Jane SENIOR PROGRAM MANAGER Other Phone: [facility] External Department Unsolicited Start: 06-26-2024 Registered Recurring Sandrarebecca terrazas DO Work Phone: [facility] Work Phone: Start: 06-26-2024 End: 06-26-2024 Patient encounter procedure Sandrarebecca Keita DO Work Phone: [facility] Ctr-Lab [place] Work Phone: Start: 06-26-2024 End: 06-26-2024 ambulatory Sandra Rebecca Keita DO Work Phone: [facility] Work Phone: Start: 06-26-2024 End: 06-26-2024 Office outpatient visit 25 minutes Roland Faust MD Work Phone: [facility] Comment on above: Typical atrial flutt er (Multi) (Primary Dx); Nonischemic cardiomyopathy (Multi); Hypercholesteremia; Hypertension, unspecified type; BMI 32.0-32.9,adult; Current smoker Start: 06-26-2024 End: 06-26-[address] [facility] Ambulatory Start: 06-04-2024 Non-patient / Non-visit Sandra Keita DO Work Phone: [facility] Work Phone: Start: 05-25-2024 End: 05-25-2024 Patient encounter procedure Sandra Keita DO Work Phone: [facility] Ctr-MRI [facility] [place] Work Phone: Start: 05-25-2024 End: 05-25-2024 ambulatory Sandra A Keita DO Work Phone: [facility] Work Phone: Start: 05-19-2024 End: 05-19-2024 Telephone encounter Oz Kincaid MD Work Phone: [facility] 111 Start: 05-07-2024 End: 05-07-2024 ambulatory Sandra A Keita DO Work Phone: [facility] Work Phone: Start: 05-07-2024 End: 05-07-2024 Patient encounter procedure Sandra Keita DO Work Phone: [facility] Medicine [place] Work Phone: Start: 04-28-2024 End: 04-30-2024 Evaluation and management of inpatient Sandra Keita DO Work Phone: [facility] [place] [facility] Surg Work Phone: Start: 04-28-2024 End: 04-28-2024 ambulatory Sandra A Keita DO Work Phone: [facility] Work Phone: Start: 04-28-2024 End: 04-28-2024 Patient encounter procedure Sandra Keita DO Work Phone: [facility] Work Phone: Start: 04-28-2024 End: 04-28-2024 Patient encounter procedure Sandra Keita DO Work Phone: [facility] Work Phone: Start: 04-27-2024 End: 04-27-2024 Emergency department patient visit Sandra Keita DO Work Phone: [facility] Work Phone: Start: 04-14-2024 End: 04-14-2024 External Result Encounter Nataliya Jane SENIOR PROGRAM MANAGER Work Phone: [facility] External Department Unsolicited Start: 04-14-2024 End: 04-14-2024 External Result Encounter Nataliya Jane SENIOR PROGRAM MANAGER Work Phone: [facility] External Department Unsolicited Start: 04-14-2024 End: 04-14-2024 Patient encounter procedure Sandra Keita DO Work Phone: [facility] Work Phone: Start: 04-08-2024 End: 04-08-2024 Patient encounter procedure Karl Fritz DPM Work Phone: [facility] Comment on above: Ulcer of [...] Bamboo flowsheet Oz Kincaid MD Work Phone: [facility] BM NEUROLOGY Start: 04-07-2024 End: 04-07-2024 Office outpatient visit 15 minutes Oz Kincaid MD Work Phone: [facility] SWS NEUR B Comment on above: Cognitive decline (P rimary Dx); B12 deficiency; Neurogenic pain; Carpal tunnel syndrome, bilateral; Cervical paraspinal muscle spasm; Guyon syndrome, unspecified laterality; Granulocytosis Start: 04-07-2024 End: 04-07-2024 ambulatory OZ KINCAID Not Available Start: 03-25-2024 End: 03-25-[address] [facility] Ambulatory Start: 03-25-2024 End: 03-25-2024 Office outpatient visit 10 minutes Roland Faust MD Work Phone: [facility] Comment on above: Hypertension, unspec ified type; Typical atrial flutter (Multi) Start: 02-25-2024 End: 02-25-2024 Office outpatient visit 25 minutes Oz Kincaid MD Work Phone: [facility] B Comment on above: Cognitive decline (P rimary Dx); Neurogenic pain; Carpal tunnel syndrome, bilateral; B12 deficiency Start: 02-25-2024 End: 02-25-2024 Bamboo flowsheet Oz Kincaid MD Work Phone: [facility] NEUROLOGY Start: 02-25-2024 End: 02-25-2024 Bamboo flowsheet Oz Kincaid MD Work Phone: [facility] Start: 02-25-2024 End: 02-25-2024 ambulatory OZ KINCAID Not Available Start: 02-14-2024 End: 02-14-2024 ambulatory Sandra Keita Facility:[facility] Start: 02-14-2024 End: 02-14-2024 Departed Referred Sandra Keita DO Work Phone: [facility] Work Phone: Start: 02-10-2024 End: 02-10-2024 Bamboo flowsheet Karl Fritz DPM Work Phone: [facility] Start: 02-10-2024 End: 02-10-2024 Bamboo flowsheet Karl Fritz DPM Work Phone: [facility] Start: 02-10-2024 End: 02-10-2024 Office outpatient visit 15 minutes Karl Fritz DPM Work Phone: [facility] Comment on above: Ulcer of right foot, limited to breakdown of skin (CMS/HCC) (Primary Dx); Blister of right foot, subsequent encounter; 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); Ulcer of right foot with fat layer exposed (CMS/HCC) Start: 02-10-2024 End: 02-10-2024 ambulatory KARL FRITZ Not Available Start: 02-03-2024 End: 02-03-2024 ambulatory DO Sandra Keita Work Phone: [facility] Work Phone: Start: 02-03-2024 End: 02-03-2024 Patient encounter procedure DO Sandra Keita Work Phone: [facility] Family Medicine [place] Work Phone: Start: 01-27-2024 End: 01-27-2024 Bamboo flowsheet Karl Fritz DPM Work Phone: [facility] Start: 01-27-2024 End: 01-27-2024 Bamboo flowsheet Karl Fritz DPM Work Phone: [facility] Start: 01-27-2024 End: 01-27-2024 Office outpatient visit 15 minutes Karl Fritz DPM Work Phone: [facility] Comment on above: Ulcer of right foot, limited to breakdown of skin (CMS/HCC) (Primary Dx); Blister of right foot, subsequent encounter; 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 ([facility]) Start: 01-27-2024 End: 01-27-2024 ambulatory KARL FRITZ Not Available Start: 01-21-2024 End: 01-21-2024 Bamboo flowsheet Karl Fritz DPM Work Phone: [facility] Start: 01-21-2024 End: 01-21-2024 Bamboo flowsheet Karl Fritz DPM Work Phone: [facility] Start: 01-21-2024 End: 01-21-2024 Office outpatient visit 15 minutes Kral Fritz DPM Work Phone: [facility] Comment on above: Ulcer of right foot, limited to breakdown of skin ([facility]) (Primary Dx); Blister of right foot, initial encounter; 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 ([facility]/HCC) Start: 01-15-2024 End: 01-15-2024 ambulatory DO Sandra Keita Work Phone: [facility] Work Phone: Start: 01-15-2024 End: 01-15-2024 Patient encounter procedure DO Sandra Keita Work Phone: [facility] Work Phone: Start: 01-08-2024 End: 01-10-2024 Telephone encounter Oz Kincaid MD Work Phone: [facility] Start: 01-07-2024 End: 01-07-2024 Bamboo flowsheet Karl Fritz DPM Work Phone: [facility] Start: 01-07-2024 End: 01-07-2024 Bamboo flowsheet Karl Fritz DPM Work Phone: [facility] Start: 01-07-2024 End: 01-07-2024 Office outpatient visit 25 minutes Oz Kincaid MD Work Phone: [facility] B Comment on above: Lumbosacral radiculo mary jane at S1 (Primary Dx); Neurogenic pain; Cervical paraspinal muscle spasm; Lumbar paraspinal muscle spasm; Carpal tunnel syndrome, bilateral; B12 deficiency Start: 01-07-2024 End: 01-07-2024 ambulatory DO Sandra Keita Work Phone: [facility] Work Phone: Start: 01-07-2024 End: 01-07-2024 Departed Referred DO Sandra Keita Work Phone: [facility] Ctr-Lab [facility] [place] Work Phone: Start: 01-07-2024 End: 01-07-2024 Office outpatient visit 25 minutes Karl Fritz DPM Work Phone: [facility] Comment on above: Ulcer of right foot, limited to breakdown of skin (CMS/HCC) (Primary Dx); Cellulitis of right foot Start: 01-06-2024 End: 01-06-2024 Patient encounter procedure DO Sandra Keita Work Phone: [facility]-Ultrasound [facility] [place] Work Phone: Start: 01-06-2024 End: 01-06-2024 ambulatory DO Sandra Keita Work Phone: [facility] Work Phone: Start: 01-03-2024 End: 01-03-2024 Clinical Support Oz Kincaid MD Work Phone: [facility] B Comment on above: Carpal tunnel syndro me, bilateral (Primary Dx) Start: 01-03-2024 End: 01-03-2024 Bamboo flowsheet Oz Kincaid MD Work Phone: [facility] Start: 01-03-2024 End: 01-03-2024 Bamboo flowsheet Oz Kincaid MD Work Phone: [facility] Start: 12-17-2023 End: 12-17-2023 ambulatory DO Sandra A Debbie Work Phone: [facility] Work Phone: Start: 12-17-2023 End: 12-17-2023 Patient encounter procedure DO Sandra Keita Work Phone: [facility]-MRI [address] Work Phone: Start: 12-16-2023 End: 12-16-2023 Office outpatient visit 25 minutes Roland Faust MD Work Phone: [facility] Comment on above: High risk medication use (Primary Dx); Typical atrial flutter (Multi); Nonischemic cardiomyopathy (Multi); Hypercholesteremia; BMI 28.0-28.9,adult; BMI 30.0-30.9,adult; Current smoker Start: 12-02-2023 End: 12-02-2023 ambulatory DO Sandra A Keita Work Phone: [facility] Work Phone: Start: 12-02-2023 End: 12-02-2023 Patient encounter procedure DO Sandra Keita Work Phone: [facility]-Lab [facility] [place] Work Phone: Start: 11-26-2023 End: 11-26-2023 ambulatory DO Sandra A Keita Work Phone: [facility] Work Phone: Start: 11-26-2023 End: 11-26-2023 Patient encounter procedure DO Sandra Keita Work Phone: [facility]-Lab [facility] [place] Work Phone: Start: 11-26-2023 End: 01-07-2024 External Result Encounter Oz Kincaid MD Work Phone: [facility] External Department Unsolicited Start: 11-26-2023 End: 01-07-2024 External Result Encounter Oz Kincaid MD Work Phone: [facility] External Department Unsolicited Start: 11-18-2023 End: 11-18-2023 ambulatory DO Sandra A Debbie Work Phone: [facility] Work Phone: Start: 11-18-2023 End: 11-18-2023 Patient encounter procedure DO Sandra Debbie Work Phone: [facility] [place] Work Phone: Start: 11-16-2023 Non-patient / Non-visit DO Millie jacob Keita Work Phone: [facility] Pulmonary Disease Work Phone: Start: 11-15-2023 End: 11-15-2023 ambulatory DO Sandra A Keita Work Phone: [facility] Work Phone: Start: 11-15-2023 End: 11-15-2023 Patient encounter procedure DO Sandra Debbie Work Phone: [facility]-Respiratory Therapy Work Phone: Start: 11-14-2023 End: 11-14-2023 ambulatory DO Sandra A Debbie Work Phone: [facility] Work Phone: Start: 11-14-2023 End: 11-14-2023 Patient encounter procedure DO Sandra Debbie Work Phone: [facility] Work Phone: Start: 11-13-2023 End: 11-13-2023 Office outpatient visit 25 minutes Jonas Ch MD Work Phone: [facility] Comment on above: Nonischemic cardiomy opathy (Multi) (Primary Dx); Typical atrial flutter (Multi); Hypercholesteremia; Primary hypertension; Current smoker; BMI 28.0-28.9,adult; High risk medication use Start: 11-13-2023 Non-patient / Non-visit DO Millie jacob Debbie Work Phone: [facility] Family Medicine [place] Work Phone: Start: 11-10-2023 End: 11-12-2023 Evaluation and management of inpatient DO Sandra Debbie Work Phone: [facility] [place] [facility] Work Phone: Start: 11-05-2023 End: 11-05-2023 Admission to same day surgery center DO Sandra Debbie Work Phone: [facility] Ctr-Electrodiagnostics Work Phone: Start: 11-05-2023 End: 11-05-2023 ambulatory DO Sandra A Debbie Work Phone: [facility] Work Phone: Start: 10-30-2023 End: 01-07-2024 External Result Encounter Oz Kincaid MD Work Phone: [facility] External Department Unsolicited Start: 10-30-2023 End: 01-07-2024 External Result Encounter Oz Kincaid MD Work Phone: [facility] External Department Unsolicited Start: 10-30-2023 End: 10-30-2023 ambulatory DO Sandra A Debbie Work Phone: [facility] Work Phone: Start: 10-30-2023 End: 10-30-2023 Patient encounter procedure DO Sandra Debbie Work Phone: [facility]-XRay [place] Work Phone: Start: 10-07-2023 End: 10-07-2023 Office outpatient visit 25 minutes Jonas Ch MD Work Phone: [facility] Comment on above: Typical atrial flutt er (Multi); Nonischemic cardiomyopathy (Multi); Hypertension, unspecified type; Hypercholesteremia; Smoker; Type 2 diabetes mellitus with other specified complication, unspecified whether tank terminal gauger insulin use (Multi); BMI 28.0-28.9,adult Start: 09-17-2023 End: 09-17-2023 ambulatory DO Sandra A Debbie Work Phone: [facility] Work Phone: Start: 09-17-2023 End: 09-17-2023 Patient encounter procedure DO Sandra Debbie Work Phone: [facility] Family [facility] Work Phone: Start: 09-16-2023 Non-patient / Non-visit DO Millie jacob Debbie Work Phone: [facility] [place] Work Phone: Start: 09-14-2023 End: 09-14-2023 Non-patient / Non-visit DO Sandra Debbie Work Phone: [facility] Cardiology Work Phone: Start: 09-13-2023 End: 09-14-2023 Evaluation and management of inpatient DO Sandra Debbie Work Phone: [facility] [place] [facility] Work Phone: Start: 09-12-2023 End: 09-12-2023 Patient encounter procedure DO Sandra Debbie Work Phone: [facility] Work Phone: Start: 09-09-2023 Non-patient / Non-visit DO Millie jacob Debbie Work Phone: [facility] Work Phone: Start: 09-05-2023 End: 09-05-2023 ambulatory DO Sandra A Debbie Work Phone: [facility] Work Phone: Start: 09-05-2023 End: 09-05-2023 Patient encounter procedure DO Sandra Debbie Work Phone: [facility]-Lab [facility] [place] Work Phone: Start: 07-25-2023 End: 07-25-2023 ambulatory DO Sandra Rebecca Keita Work Phone: [facility] Work Phone: Start: 07-25-2023 End: 07-25-2023 Patient encounter procedure DO Sandra Debbie Work Phone: [facility] Ctr-CT [address] Work Phone: Start: 07-17-2023 End: 07-17-2023 ambulatory [facility] Work Phone: Start: 07-17-2023 End: 07-17-2023 Patient encounter procedure [facility] Vascular Surgery Work Phone: Start: 06-19-2023 End: 06-19-2023 ambulatory [facility] Work Phone: Start: 06-19-2023 End: 06-19-2023 Patient encounter procedure [facility] [place] Work Phone: Start: 06-12-2023 End: 06-12-2023 ambulatory [facility] Work Phone: Start: 06-12-2023 End: 06-12-2023 Patient encounter procedure [facility] Work Phone: Start: 06-10-2023 End: 06-10-2023 ambulatory Tondra Leonardous Other [employer] Other Start: 06-10-2023 Telephone encounter Tona Yvonne [facility] Start: 05-21-2023 End: 05-21-2023 ambulatory Sandra Keita Other [employer] Other Start: 05-21-2023 Telephone encounter Sandrajacob Keita [facility] [place] Start: 04-30-2023 End: 04-30-2023 ambulatory Angelique Russell Other [employer] Other Start: 04-30-2023 Telephone encounter Angelique Russell [facility] Start: 04-11-2023 End: 04-11-2023 ambulatory Sandra Keita Other [employer] Other Start: 04-11-2023 Tele[facility] Start: 04-08-2023 End: 04-08-2023 ambulatory Sandra Keita Other [employer] Other Start: 04-08-2023 Telephone encounter Sandra Keita [facility] [place] Start: 03-05-2023 End: 03-05-2023 ambulatory DO Jonas Yoder Work Phone: [facility] Work Phone: Start: 03-05-2023 End: 03-05-2023 Patient encounter procedure DO Jonas Yoder Work Phone: [facility] C[facility]-Center for Breast Care Work Phone: Start: 03-04-2023 End: 03-04-2023 ambulatory Sandra Keita Other [employer] Other Start: 03-04-2023 Office outpatient vi sit 25 minutes Sandra Keita [facility] [place] Start: 01-28-2023 End: 01-28-2023 ambulatory Sandra Keita Other [employer] Other Start: 01-28-2023 Telephone encounter Sandra Keita [facility] [place] Start: 01-07-2023 Registered Recurring DO Beba Yoder Work Phone: [facility] Work Phone: Start: 01-07-2023 (DM) Diabetes Tondra Yvonne [facility] Start: 01-07-2023 End: 01-07-2023 ambulatory Tondra Mapus Other [employer] Other Start: 01-02-2023 End: 01-02-2023 ambulatory Brayden Morrisormack Other [employer] Other Start: 01-02-2023 Office outpatient vi sit 15 minutes Brayden Noble [facility] Gastroenterology Start: 12-28-2022 End: 12-28-2022 ambulatory Sandra Keita Other [employer] Other Start: 12-28-2022 [address] Ke[address] [facility] Start: 12-18-2022 End: 12-18-2022 ambulatory Reyna Schwerer Other [employer] Other Start: 12-18-2022 Telephone encounter Reyna Schwerer [facility] Start: 12-10-2022 End: 12-10-2022 ambulatory Tondra Mapus Other [employer] Other Start: 12-10-2022 Telephone encounter Tondra Leonardous [facility] Start: 11-28-2022 End: 11-28-2022 ambulatory Sandra Keita Other [employer] Other Start: 11-28-2022 Patient encounter procedure Sandra Keita [facility] Medicine [place] Start: 11-27-2022 End: 11-27-2022 ambulatory Sandra Keita Other [employer] Other Start: 11-27-2022 Telephone encounter Sandra Keita [facility] [place] Start: 11-06-2022 End: 11-06-2022 ambulatory Sandrarebecca Keita Other [employer] Other Start: 11-06-2022 Telephone encounter Sandrarebecca Keita [facility] [place] Start: 09-27-2022 (DM) Diabetes Tondra Mapus [facility] Start: 09-27-2022 End: 09-27-2022 ambulatory Tondra Leonardous Other [employer] Other Start: 09-10-2022 End: 09-10-2022 ambulatory Sandrarebecca Keita Other [employer] Other Start: 09-10-2022 Telephone encounter Sandrarebecca Keita [facility] Start: 09-05-2022 Telephone encounter Sandrarebecca Keita [facility] Start: 09-05-2022 End: 09-05-2022 ambulatory DO Sandra Rebecca Keita Work Phone: [facility] Work Phone: Start: 09-05-2022 End: 09-05-2022 Patient encounter procedure DO Sandra Debbie Work Phone: [facility]-Center [facility] Work Phone: Start: 08-22-2022 Telephone encounter Sandrarebecca Keita [facility] Start: 08-22-2022 End: 08-22-2022 ambulatory DO Sandra A Debbie Work Phone: [facility] Work Phone: Start: 08-22-2022 End: 08-22-2022 Patient encounter procedure DO Sandra Debbie Work Phone: [facility] Ctr-CT [address] Work Phone: Start: 08-09-2022 End: 08-09-2022 ambulatory Sandra Keita Other [employer] Other Start: 08-09-2022 Office outpatient vi sit 15 minutes Sandra Keita [facility] [place] Start: 08-06-2022 End: 08-06-2022 ambulatory Sandrarebecca Keita Other [employer] Other Start: 08-06-2022 Telephone encounter Sandra Keita [facility] [place] Start: 07-10-2022 End: 07-10-2022 ambulatory Sandra Keita Other [employer] Other Start: 07-10-2022 Telephone encounter Sandra Keita [facility] [place] Start: 07-04-2022 End: 07-04-2022 ambulatory Tolu Salinas Other [employer] Other Start: 07-04-2022 Telephone encounter Tolu Salinas [facility] Start: 06-19-2022 End: 06-19-2022 ambulatory Tondra Mapus Other Spare Backup Other Start: 06-19-2022 Telephone encounter Tondra Mapus [facility] Start: 06-18-2022 (DM) Diabetes Tondra Mapus [facility] Start: 06-18-2022 End: 06-18-2022 ambulatory Tondra Mapus Other [facility] Other Start: 06-14-2022 End: 06-14-2022 ambulatory Tondra Mapus Other [facility] Other Start: 06-14-2022 Telephone encounter Tondra Mapus [facility] Start: 06-08-2022 End: 06-08-2022 ambulatory Tondra Mapus Other [facility] Other Start: 06-08-2022 Telephone encounter Tondra Russell [facility] Start: 06-04-2022 End: 06-04-2022 ambulatory Sandrarebecca Keita Other [facility] Other Start: 06-04-2022 Telephone encounter Sandrajacob Keita [facility] [place] [place] Start: 05-30-2022 End: 05-30-2022 ambulatory Sandrarebecca Keita Other [facility] Other Start: 05-30-2022 Telephone encounter Sandrarebecca Keita [facility] Start: 05-24-2022 End: 05-24-2022 ambulatory Sandrarebecca Keita Other [facility] Other Start: 05-24-2022 Telephone encounter Sandra Keita [facility] [place] Start: 04-03-2022 End: 04-03-2022 ambulatory Sandrarebecca Keita Other [facility] Other Start: 04-03-2022 Telephone encounter Sandra Keita [facility] Start: 02-14-2022 End: 02-14-2022 ambulatory Sandrarebecca Keita Other [facility] Other Start: 02-14-2022 Telephone encounter Sandrarebecca Keita [facility] [place] Start: 01-09-2022 (DM) Diabetes Tondra [facility] Start: 01-09-2022 End: 01-09-2022 ambulatory Tondra Yvonne Other [facility] Other Start: 12-21-2021 ambulatory Teresa Strong Facility:[facility]un Start: 12-18-2021 ambulatory Francesca [place] Start: 12-17-2021 End: 12-17-2021 Emergency department patient visit DO Tray Randle [facility] Start: 12-13-2021 ambulatory Francesca Wrightmons Ashley ty:ENRIQUE Chun Start: 12-12-2021 End: 12-13-2021 ambulatory ARLEEN STEPHEN Facility:[id number] Start: 12-11-2021 End: 12-12-2021 ambulatory ARLEEN STEPHEN Facility:[id number] Start: 12-09-2021 End: 12-13-2021 Evaluation and management of inpatient DO Tray Randle [facility] Start: 10-12-2021 End: 10-12-2021 ambulatory Crispin Leeahan Other [facility] Other Start: 10-12-2021 Patient encounter procedure Crispin Looney [facility] [place] Start: 10-12-2021 Telephone encounter Crispin Aayush [facility] [place] Start: 09-13-2021 End: 09-13-2021 ambulatory Crispin Aayush Other [facility] Other Start: 09-13-2021 Telephone encounter Crispin Mejias [facility] [place] Start: 08-28-2021 End: 08-28-2021 ambulatory Tondra Mapus Other [facility] Other Start: 08-28-2021 Telephone encounter Tondra Mapus [facility] Start: 07-10-2021 (DM) Diabetes Tondra [facility] Start: 07-10-2021 End: 07-10-2021 ambulatory Tondra Mapus Other [facility] Other Start: 07-03-2021 End: 07-03-2021 ambulatory Ruben Hahn Other [facility] Other Start: 07-03-2021 Office outpatient ne w 30 minutes Ruben Hahn [facility] Start: 06-28-2021 End: 06-28-2021 ambulatory Crispin Looney Other [facility] Other Start: 06-28-2021 Telephone encounter Crispin Mejias [facility] [place] Start: 05-25-2021 End: 05-25-2021 ambulatory Crispin Looney Other [facility] Other Start: 05-25-2021 Telephone encounter Crispin Looney [facility] [place] Start: 05-08-2021 End: 05-08-2021 ambulatory Crispin Looney Other [facility] Other Start: 05-08-2021 Office outpatient ne w 45 minutes Crispin Aayush [facility] [place] Start: 04-11-2021 End: 04-11-2021 ambulatory Tondra Mapus Other [facility] Other Start: 04-11-2021 Telephone encounter Tondra Mapus [facility] Start: 04-03-2021 End: 04-03-2021 ambulatory Tray Nava Other [facility] Other Start: 04-03-2021 Office outpatient vi sit 15 minutes Tray Nava [facility] Start: 03-27-2021 (DM) Diabetes Tondra [facility] Start: 03-27-2021 End: 03-27-2021 ambulatory Tondra Mapus Other [facility] Other Start: 02-27-2021 End: 02-27-2021 ambulatory Tray Nava Other [facility] Other Start: 11-01-2021 Office outpatient vi sit 15 minutes Tray MORRISON [facility] Start: 05-16-2017 End: 05-16-2017 Ambulatory MATTHEW VOSS Facility:UNKNOWN Start: 01-25-2017 End: 01-26-2017 Ambulatory ELOISA PRETTY Facility:[id number] Procedures Date Procedure Procedure Detail Performing Clinician Start: 11-16-2024 Radex foot complete minimum 3 views Karl Fritz DPM Work Phone: Start: 11-16-2024 SUPERFICIAL WOUND CULTURE ([facility]) Razia Fritz DPM Work Phone: Start: 11-16-2024 Aerobic microbial culture Sandra Debbie D O Work Phone: Start: 09-10-2024 Esophagogastroduodenoscopy Sandra Keita DO Work Phone: Start: 07-06-2024 Urine culture Sandra Keita DO Work Phone: Start: 06-26-2024 Complete blood count with white cell differential, automated Nataliya Jane SENIOR PROGRAM MANAGER Other Phone: Start: 06-26-2024 Ecg routine ecg w/least 12 lds w/i&r Roland Faust MD Work Phone: Start: 05-25-2024 MRI of head Sandra Keita DO Work Phone: Start: 04-29-2024 Urine culture Sandra Keita DO Work Phone: Start: 04-28-2024 CT angiography of head Sandra Keita DO Work Phone: Start: 04-28-2024 CT angiography of neck vessels Sandra Sushma terrazas DO Work Phone: Start: 04-28-2024 CT of head without contrast Sandra Keita DO Work Phone: Start: 04-28-2024 Plain chest X-ray Sandra Keita DO Work Phone: Start: 04-28-2024 Respiratory Panel (PCR) Sandra Keita DO Work Phone: Start: 04-14-2024 Complete blood count with white cell differential, automated Nataliya Best Lucinda SENIOR PROGRAM MANAGER Work Phone: Start: 04-14-2024 Comprehensive metabolic panel Nataliya Child SENIOR PROGRAM MANAGER Work Phone: Start: 04-14-2024 PATHOLOGIST SLIDE REVIEW ([facility]) Nataliya Snyder sylvia SENIOR PROGRAM MANAGER Work Phone: Start: 03-25-2024 Ecg routine [...] Phone: Start: 11-26-2023 ANCA PROFILE (ANCA+MPO+PR3) Oz Yarbrough D Work Phone: Start: 11-26-2023 ANTI-CENTROMERE B ANTIBODIES Oz Kincaid MD Work Phone: Start: 11-26-2023 ANTI-DSDNA(DBL)AB Oz Kincaid MD Work Phone: Start: 11-26-2023 ANTI-BUFFING WHEEL [employer]MER [employer] Oz Kincaid MD Work Phone: Start: 11-26-2023 [...] CT of head without contrast DO Sandra Sushma terrazas Work Phone: Start: 10-30-2023 LACTATE AND [...] on above: Performed By: #### [id number] #### [place] [address] Blood culture for ba cteria, including anaerobic screen DO Tray Randle SARS Antigen (LFIA) DO Sunni Randle Urine culture DO Tray yates Urine culture DO Tray yates Plan of Treatment Date Care Activity Detail Author Start: 08-17-2025 End: 08-17-2025 Patient encounter procedure 08/17/2025 3:10 PM EDT Office Visit [facility] [address] [facility] [address] [place] [address] Roland Faust MD [address] [place] [address] [facility] Start: 02-10-2025 End: 02-10-2025 Patient encounter procedure 02/10/2025 1:00 PM EDT Office Visit JUMA NUNN [address] [place] [address] Nereida Castro MD [address] [place] [address] [facility] [place] [facility] Start: 01-19-2025 End: 01-19-2025 Patient encounter procedure [facility] Start: 12-30-2024 End: 12-30-2024 Patient encounter procedure 12/30/2024 1:40 PM EDT Office Visit [facility] [address] [facility] [facility] [address] [place] [phone] Roland Faust MD [address] [facility] [address] [place] [address] [facility] Start: 12-28-2024 COVID-19 Vaccine ( season) COVID-19 Vaccine ( season) [facility] Start: 12-28-2024 Influenza vaccination Influenza Vaccine (#1) [facility] Start: 12-18-2024 End: 12-18-2024 Patient encounter procedure [facility] Start: 12-11-2024 End: 12-11-2024 Patient encounter procedure [facility] Start: 11-30-2024 End: 11-30-2024 Patient encounter procedure 11/30/2024 1:15 PM EDT Office Visit [facility] [place] [facility] [address] [place] [phone] Karl Fritz DPM [address] [place] [address] [facility] [place] [facility] Start: 11-23-2024 End: 11-23-2024 Patient encounter procedure [facility] Comment on above: Arrived Start: 11-16-2024 Superficial Wound Culture Superficial Wound Culture [facility] Start: 10-29-2024 Thyroid stimulating hormone measurement TSH Level [facility] Start: 10-28-2024 End: 10-28-2024 Patient encounter procedure 10/28/2024 4:00 PM EDT Office Visit [facility] [address] [place] [phone] Karl Fritz, DPM [address] [place] [address] [facility] Start: 10-23-2024 End: 10-23-2024 Patient encounter procedure 10/23/2024 12:00 PM EDT Procedure Visit [facility] [address] [place] [address] Oz Kincaid MD [address] [facility] [address] [address] [facility] Start: 10-20-2024 End: 10-20-2024 Patient encounter procedure 10/20/2024 10:45 AM EDT Office Visit [facility] [address] [place] [address] Karl Fritz, DPM [address] [place] [address] Arrived [facility] Comment on above: Arrived Start: 10-06-2024 End: 10-06-2025 EMG AND NERVE CONDUCTION STUDY EMG AND NERVE CONDUCTION STUDY Neurology Routine Numbness Leg pain, left Leg pain, right Bilateral leg weakness Expected: 10/06/2024 (Approximate), Expires: 10/06/2025 [facility] Work Phone: Comment on above: Expected: 10/06/2024 (Approximate), Expi res: 10/06/2025 Start: 10-06-2024 End: 10-06-2024 Patient encounter procedure [facility] Comment on above: Arrived Start: 09-10-2024 End: 09-10-2024 [facility] Start: 09-07-2024 Patient referral [facility] Work Phone: Start: 08-25-2024 Patient referral [facility] Work Phone: Start: 07-22-2024 Ankle brachial pressure index [facility] Start: 07-06-2024 Urine culture [facility] Start: 07-06-2024 Bacteria identified in Urine by Culture Urine Culture [facility] Start: 06-26-2024 [facility] Start: 05-26-2024 End: 05-26-2024 Patient encounter procedure 05/26/2024 2:40 PM EST Office Visit [facility] [address] [facility] [address] [place] [phone] Roland Faust MD [address] [place] [address] [facility] Start: 05-07-2024 End: 05-07-2024 Patient encounter procedure 05/07/2024 2:15 PM EST Office Visit [facility] [address] [place] [phone] Karl Fritz, DPM [address] [place] [address] [facility] Start: 04-30-2024 [facility] Start: 04-29-2024 End: 04-29-2024 Urine culture [facility] Start: 04-29-[address] [facility] Start: 04-29-2024 [facility] Start: 04-28-2024 Hospital admission [facility] Start: 04-28-2024 [facility] Start: 04-07-2024 End: 04-07-2024 Patient encounter procedure 04/07/2024 3:30 PM EST Office Visit [facility] [address] [place] [phone] Karl Fritz, DPM [address] [place] [address] [facility] Start: 04-07-2024 End: 04-07-2024 Patient encounter procedure [facility] Comment on above: Arrived Start: 03-27-2024 End: 03-27-2024 Patient encounter procedure 03/27/2024 10:10 AM EST Office Visit [facility] [address] [place] [address] Roland Faust MD [address] [place] [address] [facility] Start: 03-24-2024 End: 03-24-2024 Patient encounter procedure 03/24/2024 1:30 PM EST Office Visit [facility] [address] [place] [phone] Karl Fritz, DPM [address] [place] [address] [facility] Start: 03-10-2024 End: 03-10-2024 Patient encounter procedure 03/10/2024 1:30 PM EST Office Visit [facility] [address] [place] [phone] Karl Fritz, DPM [address] [place] [address] [facility] Start: 02-25-2024 End: 02-25-2024 Patient encounter procedure [facility] Comment on above: Arrived Start: 02-10-2024 End: 02-10-2024 Patient encounter procedure [facility] Comment on above: Arrived Start: 01-28-2024 End: 01-28-2024 Patient encounter procedure 01/28/2024 1:30 PM EDT Office Visit [facility] [address] [place] [phone] Oz Kincaid MD [address] [address] [facility] Start: 01-27-2024 End: 01-27-2024 Patient encounter procedure [facility] Comment on above: Arrived Start: 01-21-2024 End: 01-21-2024 Patient encounter procedure 01/21/2024 11:00 AM EDT Office Visit [facility] [address] [place] [address] Karl Fritz DPM [address] [place] [address] Arrived [facility] Comment on above: Arrived Start: 01-07-2024 Superficial Wound Culture Superficial Wound Culture [facility] Start: 01-07-2024 End: 01-06-2025 SUPERFICIAL WOUND CULTURE ([facility]) SUPERFICIAL WOUND CULTURE ([facility]) Microbiology Routine Ulcer of right foot, limited to breakdown of skin (CMS/HCC) Cellulitis of right foot Expected: 01/07/2024 (Approximate), Expires: 01/06/2025 [facility] Work Phone: Comment on above: Expected: 01/07/2024 (Approximate), Expi res: 01/06/2025 Start: 01-07-2024 End: 01-07-2024 Patient encounter procedure 01/07/2024 1:15 PM EDT Office Visit [facility] [address] [place] [address] Oz Kincaid MD [address] [facility] [address] [address] [facility] Start: 01-07-2024 End: 01-07-2024 Patient encounter procedure 01/07/2024 9:45 AM EDT Office Visit [facility] [address] [place] [address] Karl Fritz, BARRIE [address] [place] [address] Arrived [facility] Comment on above: Arrived Start: 01-06-2024 Duplex scan of lower limb veins US venous duplex LE BI [facility] Start: 01-06-2024 US Lower extremity vein - bilateral [facility] Start: 12-29-2023 COVID-19 Vaccine ( season) COVID-19 Vaccine () [facility] Start: 12-29-2023 Influenza vaccination [facility] Start: 12-02-2023 Blood zinc measurement [facility] Start: 12-02-2023 End: 12-02-2023 [facility] Start: 11-26-2023 Antibody to Scl-70 measurement [facility] Start: 11-26-2023 BUFFING WHEEL [employer] antibody measurement [facility] Start: 11-26-2023 [facility] Start: 11-13-2023 End: 11-12-2024 Aspartate aminotransferase [Enzymatic activity/volume] in Serum or Plasma by With P-5'-P Aspartate Aminotransferase Lab Routine High risk medication use Expected: 11/13/2023 (Approximate), Expires: 11/12/2024 [facility] Service Area Work Phone: Comment on above: Expected: 11/13/2023 (Approximate), Expi res: 11/12/2024 Start: 11-13-2023 End: 11-12-2024 Basic metabolic 2000 panel - Serum or Plasma Basic Metabolic Panel Lab Routine High risk medication use Expected: 11/13/2023 (Approximate), Expires: 11/12/2024 [facility] Work Phone: Comment on above: Expected: 11/13/2023 (Approximate), Expi res: 11/12/2024 Start: 11-13-2023 End: 11-12-2024 Complete Pulmonary Function Test (Spirometry/DLCO/Lung Volumes) Complete Pulmonary Function Test (Spirometry/DLCO/Lung Volumes) PFT Routine Typical atrial flutter (Multi) Expected: 11/13/2023 (Approximate), Expires: 11/12/2024 [facility] Work Phone: Comment on above: Expected: 11/13/2023 (Approximate), Expi res: 11/12/2024 Start: 11-13-2023 End: 11-13-2023 Patient encounter procedure 11/13/2023 2:00 PM EDT Office Visit [facility] [address] [place] [address] Jonas Ch MD [address] [place] [address] [facility] Start: 11-13-2023 End: 11-12-2024 Thyrotropin [Units/volume] in Serum or Plasma Thyroid Stimulating Hormone Lab Routine High risk medication use Expected: 11/13/2023 (Approximate), Expires: 11/12/2024 [facility] Work Phone: Comment on above: Expected: 11/13/2023 (Approximate), Expi res: 11/12/2024 Start: 11-13-2023 End: 11-12-2024 XR Chest 2 Views XR chest 2 views Imaging Routine Typical atrial flutter (Multi) Expected: 11/13/2023 (Approximate), Expires: 11/12/2024 [facility] Work Phone: Comment on above: Expected: 11/13/2023 (Approximate), Expi res: 11/12/2024 Start: 11-12-2023 [facility] Start: 11-11-2023 [facility] Start: 11-10-2023 Bacteria identified in Urine by Culture [facility] Start: 11-10-[address] [facility] Start: 11-10-2023 Hospital admission [facility] Start: 11-10-2023 Physical therapy procedure [facility] Start: 11-10-2023 Referral to occupational therapist [facility] Start: 11-10-2023 [facility] Start: 11-10-2023 [facility] Start: 11-05-2023 [facility] Start: 10-30-2023 Blood zinc measurement [facility] Start: 10-30-2023 [facility] Start: 10-28-2023 End: 10-06-2025 Cardioversion External Cardioversion External Cardiac Services Routine Typical atrial flutter (Multi) Expected: 10/28/2023 (Approximate), Expires: 10/06/2025 [facility] Service Area Work Phone: Comment on above: Expected: 10/28/2023 (Approximate), Expi res: 10/06/2025 Start: 09-14-2023 [facility] Start: 09-12-2023 Referral to chief bank examiner [facility] Start: 09-12-2023 Hospital admission [facility] Start: 12-28-2022 COVID-19 Vaccine () COVID-19 Vaccine () [facility] Start: 2022 Screening for osteoporosis Bone Density Scan [facility] Start: 12-17-2021 Computed tomography of abdomen and pelvis with contrast CT abdomen pelvis w con [facility] Start: 12-17-2021 End: 12-17-2021 Emergency department patient visit Departed Emergency [facility] Start: 12-13-2021 [facility] Work Phone: Start: 12-11-2021 Referral to urologist [facility] Work Phone: Start: 12-11-2021 Referral to general surgeon [facility] Work Phone: Start: 12-09-2021 Hospital admission [facility] Work Phone: Start: 06-10-2021 Screening for malignant neoplasm of breast Mammogram [facility] Start: 2017 RSV High Risk: (Elderly (60+) or Population) (1 - Risk 60-74 years 1-dose series) RSV High Risk: (Elderly (60+) or Population) (1 - Risk 60-74 years 1-dose series) [facility] Start: 2017 RSV patients and/or patients aged 60+ years (1 - 1-dose 60+ series) RSV patients and/or patients aged 60+ years (1 - 1-dose 60+ series) [facility] Start: 11-26-2007 Zoster Vaccines (1 of 2) Zoster Vaccines (1 of 2) [facility] Start: 11-26-1979 DTaP/Tdap/Td Vaccines (1 - Tdap) DTaP/Tdap/Td Vaccines (1 - Tdap) [facility] Start: 1978 Screening for malignant neoplasm of cervix [facility] Start: 1976 Pneumococcal vaccination Pneumococcal Vaccine (1 of 2 - PCV) [facility] Start: 1976 Urine screening for protein Diabetes: Urine Protein Screening [facility] Start: 11-26-1975 Hepatitis C screening Hepatitis C Screening [facility] Start: 11-26-1967 Diabetic foot examination Diabetes: Foot Exam [facility] Start: 11-26-1967 Glaucoma screening Diabetes: Retinopathy Screening [facility] Start: 11-26-1963 Pneumococcal Vaccine: 65+ Years (1 of 2 - PCV) Pneumococcal Vaccine: 65+ Years (1 of 2 - PCV) [facility] Start: 1958 MMR Vaccines (1 of 1 - Standard series) MMR Vaccines (1 of 1 - Standard series) [facility] Start: 1957 Annual wellness visit [facility] Start: 1957 Hemoglobin A1c measurement Diabetes: Hemoglobin A1C [facility] Start: 1957 Lipid panel Lipid Panel [facility] Start: 1957 Medicare Annual Wellness Visit Medicare Annual Wellness Visit (AWV) [facility] Start: 1957 Screening for malignant neoplasm of colon [facility] Start: 1957 Screening for osteoporosis Bone Density Scan [facility] Start: 1957 Thyroid stimulating hormone measurement TSH Level [facility] Start: 1957 Urine screening for protein Diabetes: Urine Protein Screening [facility] 24 hour urine measurement [facility] Albumin [Mass/volume ] in Serum or Plasma [facility] Albumin/Globulin ratio [facility] Aldolase measurement [facility] Angiotensin converti ng enzyme [Enzymatic activity/volume] in Serum or Plasma [facility] Antibody measurement [facility] Arsenic measurement [facility] Bacteria identified in Unspecified specimen by Aerobe culture [facility] Bacteria identified in Unspecified specimen by Aerobe culture [facility] Borrelia burgdorferi Ab [Interpretation] in Serum [facility] Borrelia burgdorferi IgG Ab [Presence] in Serum or Plasma by Immunoassay [facility] Borrelia burgdorferi IgG+IgM Ab [Presence] in Serum by Immunoassay [facility] Borrelia burgdorferi IgM Ab [Presence] in Serum or Plasma by Immunoassay [facility] Centromere protein B Ab [Units/volume] in Serum [facility] Ceruloplasmin [Mass/ volume] in Serum or Plasma [facility] Ceruloplasmin [Mass/ volume] in Serum or Plasma [facility] Complement C3 [Mass/ volume] in Serum or Plasma [facility] Complement C4 [Mass/ volume] in Serum or Plasma [facility] Comprehensive metabo lic 1999 panel - Serum or Plasma [facility] Comprehensive metabo lic 1999 panel - Serum or Plasma [facility] Comprehensive metabo lic 1999 panel - Serum or Plasma [facility] Copper measurement [facility] Cryoglobulin [Presen ce] in Serum [facility] CT Unspecified body region [facility] DXA Skeletal system. axial Views for bone density [facility] Electrophoresis: [id number] [facility] Electrophoresis: [id number] [facility] Electrophoresis: beta-globulin [facility] Electrophoresis: gaby ma globulin [facility] FLOWCYTOMETRY NEOGENOMIC FLOWCYT OMETRY NEOGENOMIC Lab Routine 06/26/2024 10:44 AM EST [facility] [employer] Work Phone: Globulin [Mass/volum e] in Serum [facility] Glucose measurement estimated from glycated hemoglobin [facility] Hepatitis A virus an tibody, IgM type [facility] Hepatitis B core ant ibody measurement, IgM type [facility] Hepatitis B virus razo rface Ag [Presence] in Serum or Plasma by Immunoassay [facility] Hepatitis C virus Ig G Ab [Presence] in Serum or Plasma by Immunoassay [facility] Hepatitis C virus RN A [log units/volume] (viral load) in Serum or Plasma by TEJINDER with probe detection [facility] Hepatitis C virus RN A [Units/volume] (viral load) in Serum or Plasma by TEJINDER with probe detection [facility] Histone IgG Ab [Units/volume] in Serum by Immunoassay [facility] HIV 1+2 Ab+HIV1 p24 Ag [Presence] in Serum or Plasma by Immunoassay [facility] Homocysteine [Moles/ volume] in Serum or Plasma [facility] Homogenous nuclear A b pattern [Titer] in Serum [facility] Homogenous nuclear A b pattern [Titer] in Serum [facility] IgA [Mass/volume] in Serum or Plasma [facility] IgG [Mass/volume] in Serum or Plasma [facility] IgM [Mass/volume] in Serum or Plasma [facility] Immunofixation for Urine [facility] Sushma-1 extractable nuc lear Ab [Units/volume] in Serum [facility] Lead [Presence] in Blood [facility] Lutropin [Units/volu me] in Serum or Plasma [facility] Measurement of monoc lonal protein concentration [facility] Mercury [Mass/volume ] in Blood [facility] Methylmalonate [Moles/volume] in Serum or Plasma [facility] MG Breast - bilatera l Screening [facility] MG Breast - bilatera l Screening [facility] Mitochondria M2 IgG Ab [Units/volume] in Serum [facility] MR Cervical spine WO contrast [facility] MR Thoracic spine [facility] Myeloperoxidase Ab [Units/volume] in Serum by Immunoassay [facility] Neutrophil cytoplasm ic Ab.classic [Titer] in Serum by Immunofluorescence [facility] Nuclear Ab [Titer] in Serum [facility] Nuclear Ab [Titer] in Serum [facility] P-ANCA measurement [facility] Patient Education [facility] Work Phone: Patient referral [facility] Work Phone: Porphobilinogen [Mass/volume] in Urine [facility] Protein [Mass/volume ] in Serum or Plasma [facility] Protein [Mass/volume ] in Urine [facility] Proteinase 3 Ab [Units/volume] in Serum by Immunoassay [facility] Pyridoxine [Mass/vol ume] in Serum or Plasma [facility] Reagin Ab [Presence] in Serum by RPR [facility] Rheumatoid factor [Units/volume] in Serum or Plasma [facility] Ribosomal P Ab [Units/volume] in Serum [facility] Serum immunofixation [facility] Sjogrens syndrome-A extractable nuclear Ab [Units/volume] in Serum [facility] Sjogrens syndrome-B extractable nuclear Ab [Units/volume] in Serum [facility] Fritz extractable nu clear Ab [Units/volume] in Serum [facility] SUPERFICIAL WOUND CU LTURE ([facility]) [facility] Work Phone: Comment on above: Ordered: 11/16/2024 Thallium [Mass/volum e] in Serum or Plasma [facility] West Nile virus IgG Ab [Presence] in Serum by Immunoassay [facility] West Nile virus IgM Ab [Presence] in Serum by Immunoassay [facility] Immunizations Immunization Date Immunization Notes Care Provider Radha pruitt 04-02-2002 measles, mumps and rubella virus vaccine Sandra Keita Other [facility] NEGATED: Highlighted row has not occurred!03-04-2023 Flu Shot - Documentation Purposes Only Sandra Keita Other [facility] Other NEGATED: Highlighted row has not occurred!04-16-2022 influenza, seasonal, injectable Patient Objection Sandra Keita Other [facility] Payers Date Payer Category Payer Medicare [id number] 2024 Self-pay [id number] 2023 Medicare [id number] 2023 Dual Eligibility Medicare/Medicaid Organization [id number] 2023 Private Health Insurance UNITED HEALTHCARE DUAL COMPLETE UNITED HEALTH[employer]ARE DUAL COMPLETE [id number] 2023-Present [address] [address] [place] [address] [id number] .[id number] 2022 Medicare [id number] 2.16.840.1.322948.19 2022 Medicare [id number]. 1.13.693.2 .[id number] 2022 Medicare (Managed Care) [facility] EALTHC[facility] MEDICARE [id number] 2022 Private Health Insurance [id number] 2021 Medicaid [id number]. 1.13.647.2 .[id number] 2021 Blue Cross Blue Shield [id number] 2.16.840.1.909657.19 2017 Unknown [id number] 1959 Medicaid [id number] 1957 Unknown [id number] 2.16.840.1.262286.3.579.2 .727 1957 Unknown [id number] 2.16.840.1.302199.3.579.2 .727 1957 Unknown [id number] 2.16.840.1.126358.3.579.2 .72 1957 Unknown [id number] 2.16.840.1.076158.3.579.2 .72 1957 Unknown [id number] 2.16.840.1.050959.3.579.2 .1957 Unknown [id number] 2.16.840.1.911415.3.579.2 .196 1957 Unknown [id number] 2.16.840.1.481776.3.579.2 .196 1957 Unknown [id number] 2.16.840.1.928757.3.579.2 .1244 1957 Unknown [id number] 2.16.840.1.930078.3.579.2 .1244 1957 Unknown [id number] 2.16.840.1.139739.3.579.2 .1244 1957 Unknown [id number] 2.16.840.1.396565.3.579.2 .125 1957 Unknown [id number] 2.16.840.1.402372.3.579.2 .1259 1957 Unknown [id number] 2.16.840.1.446933.3.579.2 .125 1957 Unknown [id number] 2.16.840.1.383795.3.579.2 .1259 1957 Unknown [id number] 2.16.840.1.173582.3.579.2 .9 1957 Unknown [id number] 2.16.840.1.057844.3.579.2 .1258 1957 Unknown [id number] 2.16.840.1.295675.3.579.2 .1258 1957 Unknown [id number] 2.16.840.1.510110.3.579.2 .1258 1957 Unknown [id number] 2.840.1.491161.3.579.2 .1258 1957 Unknown [id number] 2.840.1.239468.3.579.2 .1258 1957 Unknown [id number] 2.840.1.470967.3.579.2 .1258 1957 Unknown [id number] 2.840.1.689117.3.579.2 .1258 1957 Unknown [id number] 2.840.1.573917.3.579.2 .1258 1957 Unknown [id number] 2.840.1.878963.3.579.2 .1259 Medicare [id number] 2.840.1.384866.19 Unknown [id number] 2.840.1.992077.3.579.2 .531 Unknown [id number] 2.840.1.695814.3.579.2 .531 Unknown [id number] 2.16840.1.418217.3.579.2 .531 Unknown [id number] 2.16840.1.994205.3.579.2 .531 Unknown [id number] 2.16.840.1.120177.3.579.2 .531 Unknown [id number] 2.16840.1.805740.3.579.2 .531 Unknown [id number] 2.840.1.078212.3.579.2 .531 Unknown [id number] 2.16.840.1.399033.3.579.2 .531 Unknown [id number] 2.16.840.1.237903.3.579.2 .531 Unknown [id number] 2.16.840.1.059204.3.579.2 .531 Unknown [id number] 2.16.840.1.319086.3.579.2 .531 Unknown [id number] 2.16.840.1.776364.3.579.2 .531 Unknown [id number] 2.16.840.1.589180.3.579.2 .531 Social History Date Type Detail Facility Unknown if ever smoked [facility] Other Start: 10-07-2023 End: 11-23-2024 Sex Assigned At [facility] [email or web address] Other Start: 12-17-2021 End: 09-10-2024 Tobacco smoking status [facility] Smoker (finding) [facility] Start: 1955 Sex Assigned At Female F [facility] Start: 04-29-1975 End: 10-07-2023 Tobacco smoking status KYIS Smokes tobacco daily [facility] Start: 04-29-1975 History of tobacco use Cigarette Smo ker [facility] Work Phone: Start: 10-07-2023 Tobacco use and exposure Smokeless tobacco non-user [facility] Work Phone: Start: 10-07-2023 End: 11-23-2024 Alcoholic beverage intake Lifetime non-drinker (finding) [facility] Work Phone: Start: 10-07-2023 End: 11-23-2024 History of Social function [facility] Work Phone: Start: 1955 [facility] Start: 09-27-2023 End: 06-26-2024 Exposure to SARS-CoV-2 (event) Not sure [facility] Start: 01-29-2023 Tobacco use and exposure User of smokeless tobacco [facility] Start: 01-29-2023 Tobacco Comment Smokes 11-20 c igs per day [facility] Start: 01-09-2023 Alcohol Comment caffeine intak e: occasional [facility] Start: 04-29-2024 End: 10-01-2024 Sex Female (finding) [facility] Start: 11-28-2022 Sex Female [facility] Medical Equipment Procedure Code Equipment Code Equipment [...] Facility 04-30-2024 Functional status Patient at Baseline [facility] Work Phone: 11-12-2023 Functional status Patient at Baseline [facility] Work Phone: 09-14-2023 Functional status Patient at Baseline [facility] Work Phone: 12-13-2021 Functional status Patient at Baseline [facility] Work Phone: Mental Status Date Assessment Result Facility 04-30-2024 Cognitive function Cognitive Sta tus Patient at Baseline [facility] Work Phone: 11-12-2023 Cognitive function Cognitive Sta tus Patient at Baseline [facility] Work Phone: 09-14-2023 Cognitive function Cognitive Sta tus Patient at Baseline [facility] Work Phone: 12-13-2021 Cognitive function Cognitive Sta tus Patient at Baseline [facility] Work Phone: Clinical Notes 02-27-2021 to 12-30-2024 Roland Faust MD - 12/30/2024 1:40 PM EDTPatient InstructionsAttaAmbreen Kincaid MD - 12/18/2024 1:15 PM EDT [...] By signing my name below, I, Ernesto Shields LPN attest that this documentation has been [...] discussion and plan. documented in this encounter [facility] Work Phone: 12-30-2024 Instructions Edilma Menezes LPN [...] be sent through Care Everywhere.Heart Healthy Diet (Nicaraguan)Quitting smoking ([place]icaraguan)documented in this encounter [facility] Work Phone: 12-18-2024 History of Present illness Narrative [facility] Patient: Taye Gay [address], [address] , Sex: 1955, Female [place], [place] [address] Height: 168 cm Ref Phys: Yanivjeni Keita fax Electroneuromyogram (ENMG) Test Date: 2024-12-18 Patient [...] Doub=doublet; Fasc=fasciculation; FFE=full for effort; Fib=fibrillation; Myokym=myokymia; Salix=myotonic potential; N,0=normal; NR=no response; Polyph=polyphasia; Pos=positive [sharp] wave; RFU=rapidly firing units; Serr=serrated potential (2<phases<5); W&W=waxing and waning pattern INTERPRETATION: This study reveals ENMG evidence of a chronic, neuropathic, axonal, sensory > motor process affecting all lower extremity nerves tested. Needle examination demonstrates a kooeow-fz-myukomnu gradient that is most suggestive of peripheral [...] of any radiculopathy. Oz Kincaid M.D. Diplomate, [place] [employer] (neurology, epilepsy, sleep medicine) Diplomate, [place] [employer] Clinical Neurophysiology Diplomate, [place] [employer] Preventive Medicine (clinical informatics) . documented in this encounter [facility] 12-15-2024 Evaluation note Diagnosis Onset Date Resolution Allergy to honey bee venom acute December 15 1:46pm Atrial fibrillation acute Aug2024 1:46pm Current every day smoker acute December 15, 2024 1:46pm Depression acute December 15 2 025 1:46pm Diabetes mellitus with neuropathy acute December 15 1:46pm Insulin dependent diabetes mellitus acute December 15 2 025 1:46pm Lumbar spondylosis acute December 15, 2024 1:46pm PAD (peripheral artery disease) acute December 15 1:46pm Post-menopausal acute December 152024 1:46pm Screening for breast cancer acute December 15 1:46pm Screening for lung cancer acute December 15 1:46pm Screening for osteoporosis acute December 15 1:46pm Wound of foot acute November 1:46pm BMI 32.0-32.9,adult acute Septe mb2024 1:23pm Dietary counseling and surveillance acute January 05, 2 025 1:23pm Hyperlipidemia acute January 05, 2025 1:23pm Hypertension acute December 1:23pm Peripheral neuropathy acute Sep tember 2024 1:23pm Type 2 diabetes mellitus acute January 05, 2025 1:23pm Vitamin B 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 S 2024 1:23pm [facility] Work Phone: 1(965) 278-558608-19-2025 Evaluation note* Diagnosis Onset Date Resolution Status [...] acute December 1:23pm Peripheral neuropathy acute Sep 2024 1:23pm Type 2 diabetes mellitus acute January 05, 2025 1:23pm Vitamin B 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 S 2024 1:23pm Current every day smoker acute January 12, 2025 2:19pm Depression acute December 2:19pm Lesion of spleen acute 2024 2:19pm [facility] Work Phone: 1(468) 515-282808-15-2025 History of Present illness Narrative* Oz Kincaid MD - 12/11/2024 1:15 PM EDT [facility] Patient: Taye Priti [address], [address] , Sex: 1955, Female [place], [place] [address] Height: 168 cm Ref Phys: Debbie Kincaid [...] Doub=doublet; Fasc=fasciculation; FFE=full for effort; Fib=fibrillation; Myokym=myokymia; Salix=myotonic potential; N,0=normal; NR=no response; Polyph=polyphasia; Pos=positive [sharp] [...] 6.0 49 49 1.7 2.2 2016Apr 05 4.8 5.5 7.1 7.2 47 46 1.9 2.1 ULNARS R CV elbow L This study 3.9 3.6 2.7 1.6 45 55 3.0 NR 40 42 2023Dec 12 3.9 3.3 3.0 2.1 29 47 1.8 1.5 53 57 2016Apr 05 3.4 3.0 7.7 6.6 50 48 --` -- 36 40 Oz Kincaid M.D. Diplomate, [place] [employer] Neu[employer] (neurology, epilepsy, sleep medicine) Diplomate, [place] [employer] Clinical Neurophysiology Diplomate, [place] [employer] Preventive Medicine (clinical informatics) . documented in this encounterSt. [facility] HospitalKglpkqsqmy58-37-5834 History of Present illness Narrative* Karl Fritz [...] if she does decline. documented in this [facility]07-21-2025 History of Present illness Narrative* [...] to their surgery date. documented in this encounterSt. Louis Children[facility] HospitalTiwahpfwne25-48-9298 Telephone encounter Note* Telephone Encounter - Cali Duque - 10/21/2024 2:44 PM EDT Patient canceled 10/23/24 EMG on 10/20/24 due to an appointment conflict. [facility] HospitalFvxplzdvkn95-31-2917 Miscellaneous Notes* Telephone Encounter - Cali Duque - 10/21/2024 2:44 PM EDT Patient canceled 10/23/24 EMG on 10/20/24 due to an appointment conflict. documented in this encounterSt. Louis Children's HospitalOxaquiboek01-19-3736 History of Present illness Narrative* Karl Fritz [...] with ulceration and/or pain. documented in this encounterSt. Louis Children's HospitalOcyewbjyzk07-49-3941 Telephone encounter Note* Telephone Encounter - Cali Duque - 10/07/2024 3:49 PM EDT Received call from Raine with [facility] they are happy to take her as a client. [facility] HospitalUndclenuzq42-08-9840 Miscellaneous Notes* Telephone Encounter - Cali Duque - 10/07/2024 3:49 PM EDT Received call from Raine with [employer] they are happy to take her as a client. documented in this [facility]06-10-2025 History of Present illness Narrative* Oz Kincaid [...] 6 weeks (around 11/17/2024), or 6-8 w SENIOR PROGRAM MANAGER; after ENMGs. History of Present Illness, Associated [...] and fingertips; restlessness; gait ataxia. Imaging MR Yao-s (11/2023[facility]) - HNP T12-L1 mild ... canal sten L2-3 mod ... errol sten L2-3 modB L4-5-S1 modB US LE (12/2016, [facility]) - atherosclerosis, nl PVR. Testing ENMG (11/2023) - acute L S1 (nEMG) + PN pattern signif worse . . . . (03/2017, [facility]) - PN pattern Labs - K21=749/15/116/>22.3, was 359/16.7H/328/>22.3 ... A1c=8.4, was 10.4(!) ,,, [...] - end of Mar pt [facility] & slurred speech, [...] MR brain (03/2024) - never done during [facility] due to metal . . . . 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 APB 4B ... LEs - 4+ throughout (worse), somewhat antalgic, unchanged: ___, orig: Bakery Team Leader 4B ... APB 4R 4+L Sens - [...] positive COVID-19 Diabetes (CMS/HCC) Fibromyalgia High cholesterol ([facility]/HCC) History of medical problems ulcer HTN (hypertension) ([facility]/HCC) Neuropathy Rheumatoid arthritis ([facility]) Scarlet fever Stomach ulcer Tonsillitis Past Surgical History: Procedure Laterality Date BIOPSY 04/2020 vulvar CARPAL TUNNEL RELEASE Right 2018 COLPOSCOPY 01/21/2017 COLPOSCOPY 09/2018 COLPOSCOPY 10/2019 COLPOSCOPY 09/2021 ESOPHAGEAL DILATION HYSTERECTOMY PARTIAL HYSTERECTOMY MI VULVECTOMY SIMPLE PARTIAL 12/2018 TONSILLECTOMY VULVECTOMY 12/2017 [...] Take with meals. Continuous Blood Gluc Sensor ([employer] Brent 14 Day Sensor) [facility] apply 1 SENSOR as directed every 14 days use with DEVICE to MONIT... (REFER TO PRESCRIPTION NOTES). cyanocobalamin (Vitamin B-12) 2500 MCG tablet Docusate Sodium (DSS) 100 MG capsule Take 100 mg by mouth in the morning and 100 mg in the evening. donepezil (Aricept) 10 MG tablet 2 tabs QAM 60 tablet 5 Droplet [place] 32G X 4 MM [facility] use 1 PEN NEEDLE to inject MEDICATION [...] Oz Kincaid M.D. [facility] ? [address] ? [place], [place] [address] ? ? fax Neurology ? Clinical Neurophysiology ? Epilepsy ? Sleep Disorders ? Clinical Informatics documented in this [facility]06-05-2025 Evaluation note* Diagnosis Onset Date [...] Depression acute December 15, 2 025 1:46pm [facility] Work Phone: 1(158) 595-616606-05-2025 Evaluation note* Diagnosis Onset Date Resolution Status [...] December 15, 2024 1:46pm Atrial fibrillation acute Aug2024 1:46pm Current every day smoker acute December [...] 1:46pm Wound of foot acute November 1:46pm [facility] Work Phone: 1(327) 355-598705-15-2025 [place] [address] EGD Procedure Note Signed Patient: Taye Gay MR#: [id number] : 1955 Acct:[id number] Age/Sex: 68 / F Adm Date: 5 Loc: Room: Type: [facility] Attending Dr: Manjit Gleason MD Copies [...] 09/10/24 1241 Signed By: 09/10/24 1245 [facility]05-15-2025 [place] [address] Gastroenterology H&P Signed Patient: Taye Gay MR#: [id number] : 1955 Acct:[id number] Age/Sex: 68 / F Adm Date: 5 Loc: Room: Type: [facility] Attending Dr: Manjit Gleason MD Copies to: Sandra A Debbie, DO Manjit Gleason MD~ Date of Service: [...] 09/10/24 1233 Signed By: 09/10/24 1241 [facility]04-29-2025 Chief complaint+Reason for visit Narrative* Chief [...] Secondary polycythemia October 01, 2024 2: 34pm [facility] Work Phone: 1(878) 415-790404-24-2025 Evaluation note* Diagnosis Onset Date Resolution Status [...] 2024 2:34pm Secondary polycythemia acute 2024 2:34pm [facility] Work Phone: 1(939) 187-234303-26-2025 Evaluation note* Diagnosis Onset Date Resolution Status [...] B 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 A pri2024 9:57am [facility] Work Phone: 1(313) 948-967603-26-2025 Evaluation note* Diagnosis Onset Date Resolution Status [...] 1:31pm Peripheral neuropathy acute Apr 2024 1:31pm [facility] Work Phone: 1(526) 187-669303-26-2025 Evaluation note* Diagnosis Onset Date Resolution Status [...] 1:31pm Lumbar spondylosis acute September 072024 11:01am [facility] Work Phone: 1(289) 983-486403-26-2025 Evaluation note* Diagnosis Onset Date Resolution Status [...] 2024 2:34pm Secondary polycythemia acute 2024 2:34pm [facility] Work Phone: 1(830) 215-615203-25-2025 History of Present illness Narrative* Oz Kincaid MD - 07/21/2024 2:45 PM EDTAssociated Problem(s): Cognitive decline (Continue current regimen.) [facility] records - neuro consults, EEG, MR, [...] & Plan Cognitive decline (Continue current regimen.) [facility] records - neuro consults, EEG, MR, [...] restlessness; gait ataxia. Imaging MR L-s (11/2023, [facility]) - HNP T12-L1 mild; canal sten L2-3 mod; errol sten L2-3 modB L4-5-S1 modB US LE (12/2016, [facility]) - atherosclerosis, nl PVR. Testing ENMG (11/2023) - acute L S1 (nEMG) + PN pattern signif worse . . . . (03/2017, [facility]) - PN pattern Labs - K57=279/15/116/>22.3, was 359/16.7H/328/>22.3 ... A1c=8.4, was 10.4(!) ,,, [...] now that pt is off nortrip. Adm [facility] for possible TIA. Walking drunk , Tim. 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 Imaging MR brain (10/2023, [facility]) - not available via [place] - [...] ___, orig: ___ Motor - ___, unchanged: Bakery Team Leader 4B ... APB 4R 4+L, orig: ___ [...] COLPOSCOPY 09/2021 ESOPHAGEAL DILATION HYSTERECTOMY PARTIAL HYSTERECTOMY MI VULVECTOMY SIMPLE PARTIAL 12/2018 TONSILLECTOMY VULVECTOMY 12/2017 [...] Take with meals. Continuous Blood Gluc Sensor ([employer] Brent 14 Day Sensor) [facility] apply 1 SENSOR as directed every 14 days use with DEVICE to MONIT... (REFER TO PRESCRIPTION NOTES). cyanocobalamin (Vitamin B-12) 2500 MCG tablet Docusate Sodium (DSS) 100 MG capsule Take 100 mg by mouth in the morning and 100 mg in the evening. donepezil (Aricept) 10 MG tablet Up to 2 QAM if tolerated 60 tablet 3 Droplet [place] 32G X 4 MM [facility] use 1 PEN NEEDLE to inject MEDICATION [...] ? [address] ? [place] [address] ? ? fax Neurology ? Clinical Neurophysiology ? Epilepsy ? Sleep Disorders ? Clinical Informatics documented in this encounterSt. [facility] HospitalGnepxofnsg06-77-5052 History of Present illness Narrative* Roland Faust [...] By signing my name below, Melina Bardales LPN, Scribe attest that this documentation [...] exam, discussion and plan. documented in this [facility] Work Phone: 1(282) 321-258802-28-2025 Instructions* Patient Instructions* Melina Lee LPN - [...] with ekg [facility]: 1(794) 291-907101-21-2025 Telephone encounter Note* Telephone Encounter - Cali Duque - 05/19/2024 11:20 AM EST Daughter same day canceled same day canceled today's appointment due to overslept. RS for 06/02/24 [facility] [id number] Miscellaneous Notes* Telephone Encounter - Cali Laneshreyas - 05/19/2024 11:20 AM EST Daughter same day canceled same day canceled today's appointment due to overslept. RS for 06/02/24 documented in this encounterNOBarton County [facility] HospitalTnlkdhlpil78-89-6827 [place] [address] Neurology Progress Note Signed with Addenda Patient: Taye Gay MR#: [id number] : 1955 Acct:[id number] Age/Sex: 68 / F Adm Date: 4 Loc: 3T Room: [address] [place] [address] Type: ADM IN Attending Dr: Priscilla Lang MD Copies to: ~ ADDENDUM1 Patient has refused to remove her nail cymro for MRI. 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 or of [...] [phone] Signed By: 04/30/24 0708 [facility]01-02-2025 Discharge summary Author Priscilla Lang [facility] Note Date/Time April 30, 2024 10 :28am [facility] [address] [place] [id number] Discharge Summary Signed Patient: Taye Gay MR#: [id number] : 1955 Acct:[id number] Age/Sex: 68 / F Adm Date: 4 Loc: 3T Room: [address] [place] [address]: Priscilla Lang MD Copies to: Sandra Keita, DO Priscilla Lang MD~ Providers Date of Discharge: 04/30/24 Discharging [...] taking multiple medications that could potentially cause 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 Diagnosis is [...] polypharmacy regimen to reduce her risk of SCHOOL BUS ATTENDANT side effects or drug?drug interaction. At this [...] ask her primary care doctor to obtain [facility] record entirely to address abnormalities seen on [...] ask your primary care provider to obtain [facility] records entirely to follow up on [...] or having drug?drug interaction. Discharging you from [facility] does not mean that your medical [...] constipation) (DME) pen needle, diabetic [Sure-Fine [place]] .Route lidocaine 5 % ointment 1 applic [...] % (Auto) 63.5, Lymph % (Auto) 24.9, Kane % (Auto) 8.3, Eos % (Auto) 2.9, Baso % (Auto) 0.4, Nucleat RBC Rel Count 0.0, Neut # (Auto) 4.6, Lymph # (Auto) 1.8, Kane # (Auto) 0.6, Eos # (Auto) 0.2, [...] <Electronically signed by Priscilla Lang MD> 04/30/[address] [place] [address] Work Phone: 1(149) 754-272101-02-2025 [place] [id number] Discharge Summary Signed Patient: Taye Gay MR#: [id number] : 1955 Acct:[id number] Age/Sex: 68 / F Adm Date: 4 Loc: Room: [address] [place] [address]: Priscilla Lang MD Copies to: [...] taking multiple medications that could potentially cause 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 Diagnosis is [...] polypharmacy regimen to reduce her risk of SCHOOL BUS ATTENDANT side effects or drug?drug interaction.At this time, [...] ask her primary care doctor to obtain [facility] record entirely to address abnormalities seen on [...] ask your primary care provider to obtain [facility] records entirely to follow up on [...] or having drug?drug interaction. Discharging you from [facility] does not mean that your medical [...] constipation) (DME) pen needle, diabetic [Sure-Fine [place]] .Route lidocaine 5 % ointment 1 applic [...] % (Auto) 63.5, Lymph % (Auto) 24.9, Kane % (Auto) 8.3, Eos % (Auto) 2.9, Baso % (Auto) 0.4, Nucleat RBC Rel Count 0.0, Neut # (Auto) 4.6, Lymph # (Auto) 1.8, Kane # (Auto) 0.6, Eos # (Auto) 0.2, [...] MD 04/30/24 1016 Signed By: 04/30/24 1028 [facility]01-01-2025 Consult note Author Lit Clark [facility] Note Date/Time April 29, 2024 11 :07am [facility] [address] [place], [place] [id number] Neurology Consult Note Signed Patient: Taye Gay MR#: [id number] : 1955 Acct:[id number] Age/Sex: 68 / F Adm Date: 4 Loc: Room: [address] [place] [address] Type: ADM IN Attending Dr: Priscilla Lang MD Copies to: DO Sandra Garrido DO Rafik Massouh, MD~ HPI Consult Date: 04/29/24 Hydrographic Engineer: Lit Clark DO Reason for consult: Slurred [...] (Stool Softener) 100 mg PO DAILY PRN kakowtcbslcp70/14/24 [History Confirmed 04/28/24] multivitamin 1 tab PO DAILY 06/12/23 [History Confirmed 04/28/24] pen needle, diabetic [Sure-Fine [place]] 06/12/23 [History Confirmed 04/28/24] metformin 500 mg [...] Oz Bowling M.D.04/28/2024 9:46 PM Dictation Location: [place] [address] 04/28/24 19:44 IMPRESSION: No acute intracranial pathology. No evidence of focal stenosis, aneurysmal dilatation, dissection or occlusion. 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 necessarily of transient ischemia or of [...] follow. Documented By: Lit Clark DO 5 [id number] Signed By: <Electronically signed by Lit Clark DO> 04/29/24 3809 [facility] Work Phone: 1(556) 102-254501-01-2025 Progress note Author Priscilla Lang [facility] Note Date/Time April 29, 2024 11 :02am [facility] [address] [place] [address] Hospitalist Progress Note Signed Patient: Taye Gay MR#: [id number] : 1955 Acct:[id number] Age/Sex: 68 / F Adm Date: 4 Loc: 3T Room: [address] [place] [address] Type: ADM IN Attending Dr: Priscilla Lang [...] of dementia, possible Alzheimer's dementia -continue home qoelnexkx81 mg twice daily and donepezil 20 mg [...] <Electronically signed by Priscilla Lang MD> 04/29/24 1104 [facility] Work Phone: 1(373) 286-268101-01-2025 [place] [address] Neurology Consult Note Signed Patient: Taye Gay MR#: [id number] : 1955 Acct:[id number] Age/Sex: 68 / F Adm Date: 4 Loc: 3T Room: [address] [place] [address] Type: ADM IN Attending Dr: Priscilla Lang MD Copies to: DO Sandra Garrido, DO Priscilla Lang MD~ HPI Consult Date: 04/29/24 Hydrographic Engineer: Lit Clark DO Reason for consult: Slurred [...] disease History of stroke [facility] Problem: Diagnosed with Stroke Cancer throat heart [...] (Stool Softener) 100 mg PO DAILY PRN wmwsmygpdxen99/14/24 [History Confirmed 04/28/24] multivitamin 1 tab PO DAILY 06/12/23 [History Confirmed 04/28/24] pen needle, diabetic [Sure-Fine [place]] 06/12/23 [History Confirmed 04/28/24] metformin 500 mg [...] Oz Bowling M.D.04/28/2024 9:46 PM Dictation Location: [facility]-[address] 04/28/24 19:44 IMPRESSION: No acute intracranial pathology. No evidence of focal stenosis, aneurysmal dilatation, dissection or occlusion. Impression dictated by: Oz Bowling M.D.04/28/2024 9:44 PM Dictation Location: [facility]--17 Assessment/Plan (1) Atrial fibrillation: Qualifiers: Atrial fibrillation [...] may be metabolic in nature and not truck sales representative necessarily of transient ischemia or of [...] Clark DO 5 0858 Signed By: 04/29/[address] [place], [place] [address]01-01-2025 [place] [address] Hospitalist Progress Note Signed Patient: Taye Gay MR#: [id number] : 1955 Acct:[id number] Age/Sex: 68 / F Adm Date: 4 Loc: Room: [address] [place] [address] Type: ADM IN Attending Dr: Priscilla Lang [...] of dementia, possible Alzheimer's dementia -continue home quwgkvnft06 mg twice daily and donepezil 20 mg [...] 04/29/24 1059 Signed By: 04/29/24 1102 [facility]01-01-2025 History and physical note Author Jori Hearn [facility] Note Date/Time April 29, 2024 6: 39am [facility] [address] [place] [address] Hospitalist H&P Signed Patient: Taye Gay MR#: [id number] : 1955 Acct:[id number] Age/Sex: 68 / F Adm Date: 4 Loc: Room: [address] [place] [address] Type: ADM IN Attending Dr: Jori Hearn [...] of dementia, possible Alzheimer's dementia -continue home fnvzzgucy16 mg twice daily and donepezil 20 mg [...] (Stool Softener) 100 mg PO DAILY PRN emqabbczyisq59/14/24 [History Confirmed 04/28/24] multivitamin 1 tab PO DAILY 06/12/23 [History Confirmed 04/28/24] pen needle, diabetic [Sure-Fine [place]] 06/12/23 [History Confirmed 04/28/24] metformin 500 mg [...] % (Auto) 24.6 % (.) 04/28/24 19:54 Kane % (Auto) 7.6 % (.) 04/28/24 19:54 Eos % (Auto) 2.7 % (.) 04/28/24 19:54 Baso % (Auto) 1.1 % (.) 04/28/24 19:54 Nucleat RBC Rel Count 0.2 /100 WBC (0-0.5) 04/28/24 19:54 Neut # (Auto) 6.5 x10E3/uL (1.8-7.7) 04/28/24 19:54 Lymph # (Auto) 2.5 x10E3/uL (1.00-4.8) 04/28/24 19:54 Kane # (Auto) 0.8 x10E3/uL (0.0-0.8) 04/28/24 19:54 [...] pH 5.5 (5.0-9.0) 04/28/24 22:02 Ur Specific [place] 1.038 (1.001-1.030) H 04/28/24 22:02 Urine Protein [...] 22 57 Signed By: <Electronically signed by oJri Hearn DO> 04/29/24 0639 [facility] Work Phone: 1(290) 930-384401-01-2025 History and physical [place] [id number] Hospitalist H&P Signed Patient: Taye Gay MR#: [id number] : 1955 Acct:[id number] Age/Sex: 68 / F Adm Date: 4 Loc: Room: [address] [place] [address] Type: ADM IN Attending Dr: Jori Hearn [...] (Stool Softener) 100 mg PO DAILY PRN jszhwlmfxggu31/14/24 [History Confirmed 04/28/24] multivitamin 1 tab PO DAILY 06/12/23 [History Confirmed 04/28/24] pen needle, diabetic [Sure-Fine [place]] 06/12/23 [History Confirmed 04/28/24] metformin 500 mg [...] days #30 caps 04/20/24 [Rx Confirmed 04/28/24] [employer] SoloStar U-300 Insulin 300 unit/mL (1.5 mL) [...] % (Auto) 24.6 % (.) 04/28/24 19:54 Kane % (Auto) 7.6 % (.) 04/28/24 19:54 Eos % (Auto) 2.7 % (.) 04/28/24 19:54 Baso % (Auto) 1.1 % (.) 04/28/24 19:54 Nucleat RBC Rel Count 0.2 /100 WBC (0-0.5) 04/28/24 19:54 Neut # (Auto) 6.5 x10E3/uL (1.8-7.7) 04/28/24 19:54 Lymph # (Auto) 2.5 x10E3/uL (1.00-4.8) 04/28/24 19:54 Kane # (Auto) 0.8 x10E3/uL (0.0-0.8) 04/28/24 19:54 [...] pH 5.5 (5.0-9.0) 04/28/24 22:02 Ur Specific [place] 1.038 (1.001-1.030) H 04/28/24 22:02 Urine Protein [...] 04/28/24 57 Signed By: 04/29/24 0639 [facility]12-31-2024 Radiology Diagnostic study note [facility] Main [place] [address] [place] [address] CT Scan Report Signed Patient: Taye Gay MR#: [id number] : 1955 Acct:[id number] Age/Sex: 68 / F ADM Date: 4 Loc: ER Room: Type: [facility] ER Attending Dr: Copies to: Wesley Villafuerte PA-C~ Ordering Provider: Wesley Villafuerte PA-C Date of Service: 04/28/24 CT/CT angio head: weakness ([id number]) CT/CT angio neck: weakness ([id number]) CT/CT head/brain wo con: weakness CT head/brain [...] Oz Bowling M.D.04/28/2024 9:44 PM Dictation Location: [place] [address] Transcribed By: AMY 04/28/242143 Dictated By: Oz Bowling II, MD 04/28/242129 Signed By: 04/28/242143 [facility] Work Phone: 1(233) 273-600712-31-2024 Evaluation note* Diagnosis Onset Date Resolution Status [...] attack) acut e May 07, 2024 1:02pm [facility] Work Phone: 1(495) 838-159412-31-2024 Evaluation note* Diagnosis Onset Date Resolution Status [...] disease) acut e July 22, 2024 10:54am [facility] Work Phone: 1(293) 537-505612-17-2024 Evaluation note* Diagnosis Onset Date Resolution Status [...] attack) acut e April 28, 2024 10:38pm [facility] Work Phone: 1(453) 105-848412-17-2024 Evaluation note* Diagnosis Onset Date Resolution Status [...] attack) acut e April 28, 2024 10:38pm [facility] Work Phone: 1(772) 302-982512-17-2024 Evaluation note* Diagnosis Onset Date Resolution Status [...] nicotine dependence acute May 07, 2024 1:02pm [facility] Work Phone: 1(159) 364-911212-17-2024 Evaluation note* Diagnosis Onset Date Resolution Status [...] attack) acut e May 07, 2024 1:02pm [facility] Work Phone: 1(368) 771-761612-11-2024 History of Present illness Narrative* Karl Fritz DPM - 04/08/2024 4:00 PM EST Images from the original note were not included. HPI: Patient presents today complaining of an ulcer on the lateral 5th right foot. Patient has pain withwalking and standing due to this lesion. Patient has tried [facility] for treatment, x-ray, antibiotic, (not taking [...] 7. RTC: 2 weeks. documented in this encounterSt. 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 History of Present Illness, Associated Treatments [...] Restlessness well controlled. Imaging MR L-s (11/2023, [facility]) - HNP T12-L1 mild; canal sten L2-3 mod; errol sten L2-3 modB L4-5-S1 modB US LE (12/2016, [facility]) - atherosclerosis, nl PVR. Testing [facility] (11/2023) - acute L S1 (nEMG) + PN pattern signif worse . . . . (03/2017, [facility]) - PN pattern Labs - H86=600/15/116/>22.3, was 359/16.7H/328/>22.3 ... A1c=8.4, was 10.4(!) ,,, [...] nortrip. 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 [address] ? [place], [place] [address] ? ? fax Neurology ? Clinical Neurophysiology ? Epilepsy ? Sleep Disorders ? Clinical Informatics documented in this encounterSt. Louis Children's HospitalSuoeyjjexh73-77-5443 History of Present illness Narrative* Roland Faust [...] and plan. [facility] Work Phone: 1(215) 202-919611-27-2024 Instructions* Patient Instructions* Dave Meneses MA - [...] your visit. documented in this encounterK[facility] Work Phone: 1(282) 876-389510-29-2024 History of Present illness Narrative* Oz Kincaid MD - 02/25/2024 2:43 PM EDTAssociated Problem(s): BEATRICE positive Get Dr. Gonzalez's note (2nd request). * Oz Kincaid MD - 02/25/2024 2:15 PM EDTAssociated Problem(s): Cognitive decline Add memantine 10 -> bid. Then add donepezil 10, titrate. Handout. Get MR images transferred to [facility] PACS for my review. * Oz Kincaid [...] Priti Dept: Neurology : 1955 Appt Date: 02/25/2024 Prev Appt: 01/07/2024 Chief Complaint Patient presents with Peripheral Neuropathy Assessment and Plan - Assessment & Plan Cognitive decline Add memantine 10 -> bid. Then add donepezil 10, titrate. Handout. Get MR images transferred to [facility] PACS for my review. Neurogenic pain (Continue [...] Results - Dx SLEEP Tx (temazepam 30 --Schlotterer/BRIDGET) (+ OFF nortriptyline) AEs Hx Not reviewed [...] Restlessness well controlled. Imaging MR L-s (11/2023, [facility]) - HNP T12-L1 mild; canal sten L2-3 mod; errol sten L2-3 modB L4-5-S1 modB US LE (12/2016, [facility]) - atherosclerosis, nl PVR. Testing [facility] (11/2023) - acute L S1 (nEMG) + PN pattern signif worse . . . . (03/2017, [facility]) - PN pattern Labs - E52=089/15/116/>22.3, was 359/16.7H/328/>22.3 ... A1c=8.4, was 10.4(!) ,,, [...] nortrip. 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 APB 4R 4+L, orig: ___ [...] COLPOSCOPY 09/2021 ESOPHAGEAL DILATION HYSTERECTOMY PARTIAL HYSTERECTOMY MI VULVECTOMY SIMPLE PARTIAL 12/2018 TONSILLECTOMY VULVECTOMY 12/2017 [...] in the morning. Continuous Blood Gluc Sensor ([place] Emergency RegistryStyle [place] 14 Day Sensor) [facility] [place] 1 SENSOR as directed every 14 days use with DEVICE to MONIT... (REFER TO PRESCRIPTION NOTES). cyanocobalamin (Vitamin B-12) 2500 MCG tablet cyclobenzaprine (Flexeril) 10 MG tablet 1-2 tabs QHS 60 tablet 3 Docusate Sodium (DSS) 100 MG capsule Take 100 mg by mouth in the morning and 100 mg in the evening. Droplet [place] 32G X 4 MM [facility] use 1 PEN NEEDLE to inject MEDICATION [...] ? [address] ? [place], [place] [address] ? ? fax Neurology ? Clinical Neurophysiology ? Epilepsy ? Sleep Disorders ? Clinical Informatics documented in this encounterSt. Louis Children's HospitalBctztociar02-38-8408 History of Present illness Narrative* Karl Fritz [...] 7. RTC: 2 weeks. documented in this encounterSt. Louis Children's HospitalKzoracdmgl23-71-8670 History of Present illness Narrative* Karl Fritz DPM - 01/27/2024 10:30 AM EDT Images from the original note were not included. HPI: Patient presents today complaining of an ulcer on the plantar 1st met right foot. They have noticedthis for the past month (10/2023). Patient has pain with walking and standing due to this lesion. Patient has tried [facility] for treatment, x-ray, antibiotic, (not taking [...] 1 week for recheck. documented in this encounterSt. Louis Children's HospitalNignneqmcw13-34-0252 History of Present illness Narrative* Karl Fritz [...] 1 week for recheck. documented in this encounterSt. Louis Children's HospitalFzlucqwhnb97-97-3151 Telephone encounter Note* Telephone Encounter - Cali Duque - 01/10/2024 2:34 PM EDT Called and spoke with Corinna twice both times got disconnected. On purpose or by accident not sure, second time Corinna was given Dr Kincaid's answer. Not sure if she got full and complete answer, but she got enough of it. [facility] HospitalWcuwipflsz65-75-3992 Miscellaneous Notes* Telephone Encounter - Cali Duque [...] x several days, then 300 bid Corinna [phone] documented in this encounterSt. Louis Children's HospitalRljbwuinjj93-88-7420 Telephone encounter Note* Telephone Encounter - Cali Duque - 01/08/2024 12:37 PM EDT Daughter (Corinna Ayala) called, She was talking with Taye's Nurse, They would like to know if Gabapentin would be a better option for Taye than the PGB? You just inc her PGB from 1 cap bid to 150/300 x several days, then 300 bid Corinna [phone] [facility] [id number] History of Present illness Narrative* Oz Kincaid [...] Restlessness well controlled. Imaging MR Arianna (11/2023, [facility]) - HNP T12-L1 mild; canal sten L2-3 mod; errol sten L2-3 modB L4-5-S1 modB US LE (12/2016, [facility]) - atherosclerosis, nl PVR. Testing [facility] (11/2023) - acute L S1 (nEMG) + PN pattern signif worse . . . . (03/2017, [facility]) - PN pattern Labs - N98=036/15/116/>22.3, was 359/16.7H/328/>22.3 ... 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 APB 4R 4+L, orig: ___ [...] COLPOSCOPY 09/2021 ESOPHAGEAL DILATION HYSTERECTOMY PARTIAL HYSTERECTOMY MI VULVECTOMY SIMPLE PARTIAL 12/2018 TONSILLECTOMY VULVECTOMY 12/2017 [...] Gluc Sensor (FreeStyle [place] 14 Day Sensor) [facility] [place] 1 SENSOR as directed every 14 days use with DEVICE to MONIT... (REFER TO PRESCRIPTION NOTES). cyanocobalamin (Vitamin B-12) 2500 MCG tablet Docusate Sodium (DSS) 100 MG capsule Take 100 mg by mouth in the morning and 100 mg in the evening. Droplet [place] 32G X 4 MM [facility] use 1 PEN NEEDLE to inject MEDICATION [...] by mouth at bedtime if needed Ashley Merida 300 UNIT/ML injection inject 20 units subcutaneously as directed [DISCONTINUED] doxycycline (Vibramycin) 100 MG capsule take 1 capsule by mouth once daily for 10 days [DISCONTINUED] lisinopril 5 MG tablet Take 5 mg by mouth in the morning. No facility-administered encounter medications on file as of 01/07/2024. Oz Kincaid M.D. documented in this encounterSt. Louis Children's HospitalViumhoyqxr71-68-5107 History of Present illness Narrative* Karl Fritz, [...] due to this lesion. Patient has tried [facility] for treatment, x-ray, antibiotic, (not taking [...] site with sean vega. She does have [facility] and updated orders will be sent. [...] 7. RTC: 2 weeks. documented in this encounterSt. Louis Children's HospitalVoycybkgth21-98-8906 History of Present illness Narrative* Oz Kincaid [...] arranged Oz Kincaid M.D. documented in this encounterSt. Louis Children's HospitalRxysesiscn68-05-2258 History of Present illness Narrative* Roland Faust [...] Scribe Attestation By signing my name below, Sofie Bardales LPN, Scribe attest that this documentation [...] and plan. documented in this encounterK[facility] Work Phone: 1(476) 184-257308-19-2024 Instructions* Patient Instructions* Sofie Dean LPN - [...] to Increase physical activity. documented in this encounterK[facility] Work Phone: 1(668) 850-504907-17-2024 History of Present illness Narrative* Jonas Ch [...] and plan. documented in this encounterK[facility] Work Phone: 1(938) 510-967307-17-2024 Instructions* Patient Instructions* Dakota Barraza RN - [...] to Increase physical activity documented in this encounterKettering [facility] Work Phone: 1(851) 388-928307-15-2024 Progress note Author Chaka Frye [facility] November 11, 2023 4:15pm Note Date/Time November 11, 2023 4:15 pm [facility] [address] [place] [address] Hospitalist Progress Note Signed Patient: Taye Gay MR#: [id number] : 1955 Acct:[id number] Age/Sex: 67 / F Adm Date: 4 Loc: 4N Room: 8T8722-9 Type: ADM IN Attending Dr: Chaka Frye [...] <Electronically signed by Chaka Frye MD> 11/11/23 8686 [facility] Work Phone: 1(561) 243-276207-15-2024 Consult note Author Lit Clark [facility] November 11, 2023 3:11pm Note Date/Time November 11, 2023 10:4 3am [facility] [address] [place] [address] Neurology Consult Note Signed Patient: Taye Gay MR#: [id number] : 1955 Acct:[id number] Age/Sex: 67 / F Adm Date: 4 Loc: Room: [address] [place] [address] Type: ADM IN Attending Dr: Chaka Frye MD Copies to: DO Geraldo Garrido MD, RES MD Sandra Mar, ~ HPI Consult Date: 11/11/23 Hydrographic Engineer: Geraldo Vo MD, RES Reason for consult: Progressive generalized weakness Consult Narrative HPI: Taye Gay is a 67 y.o. female with a PMH of esophageal stricture, cigarette smoker, GERD, HTN, type 2 diabetes mellitus, HLD, CKD stage G2/A2, peripheral neuropathy and vit B12 deficiency who presented to [facility] on 11/10/23 for concerns regarding generalized [...] Confirmed 11/09/23] pen needle, diabetic [Sure-Fine [place]] 06/12/23 [History Confirmed 11/09/23] omeprazole 20 mg [...] Oz Bowling M.D.11/10/2023 1:15 PM Dictation Location: [facility]-13 Therapy Recommendations Therapy Recommendations: OT Recommendations OT [...] diabetes mellitus with hyperglycemia: Qualifiers: Diabetes mellitus tank terminal gauger insulin use: unspecified tank terminal gauger insulin use status Qualified Code(s): E11.65 - Type 2 diabetes mellitus with hyperglycemia (6) Vitamin B 12 deficiency: Plan CONSULT REASON: Generalized weakness HPI: Taye Gay is a 67 y.o. female with a PMH of esophageal stricture, cigarette smoker, GERD, HTN, type 2 diabetes mellitus, HLD, CKD stage G2/A2, peripheral neuropathy and vit B12 deficiency who presented to [facility] on 11/10/23 for concerns regarding generalized [...] signed by MD GAGE Vo> 11/11/23 1043 [facility] Work Phone: 1(281) 945-364407-14-2024 Progress note Author Kirt Renae [facility] November 10, 2023 12:24pm Note Date/Time November 10, 2023 12:0 0pm [facility] [address] [place] [address] Hospitalist Progress Note Signed Patient: Taye Gay MR#: [id number] : 1955 Acct:[id number] Age/Sex: 67 / F Adm Date: 4 Loc: 4N Room: 6D3505-4 Type: ADM IN Attending Dr: Kirt Renae [...] ESR and CRP -Obtain anti Sushma, Anti BUFFING WHEEL FORMER AUTOMATIC, anti dsDNA -Obtain CT head without contrast [...] signed by Kirt Renae MD> 11/10/23 1224 [facility] Work Phone: 1([phone]) 151-413707-14-2024 History and physical note Author Jluis Campos [facility] November 10, 2023 6:20am Note Date/Time November 10, 2023 6:11 am [facility] [address] [place] [address] Hospitalist H&P Signed Patient: Taye Gay MR#: [id number] : 1955 Acct:[id number] Age/Sex: 67 / F Adm Date: 4 Loc: 4N Room: 8H6181-9 Type: ADM IN Attending Dr: Jluis Campos [...] disease [facility]: Diagnosed with Stroke Cancer [...] Confirmed 11/09/23] pen needle, diabetic [Sure-Fine [place]] 06/12/23 [History Confirmed 11/09/23] omeprazole 20 mg [...] weaknesses were noted, patient unable to ambulate. Fgaa-ko-zsbl test was normal. No tremors or ataxia with cvpvmv-ux-prty movements. Neuro: AOx3, CN II-VII intact. Moves [...] % (Auto) 26.0 % (.) 11/10/23 03:41 Kane % (Auto) 8.2 % (.) 11/10/23 03:41 Eos % (Auto) 3.7 % (.) 11/10/23 03:41 Baso % (Auto) 0.9 % (.) 11/10/23 03:41 Nucleat RBC Rel Count 0.1 /100 WBC (0-0.5) 11/10/23 03:41 Neut # (Auto) 5.2 x10E3/uL (1.8-7.7) 11/10/23 03:41 Lymph # (Auto) 2.2 x10E3/uL (1.00-4.8) 11/10/23 03:41 Kane # (Auto) 0.7 x10E3/uL (0.0-0.8) 11/10/23 03:41 [...] pH 6.0 (5.0-9.0) 11/10/23 05:02 Ur Specific [place] 1.007 (1.001-1.030) 11/10/23 05:02 Urine Protein Negative [...] (# of days): 3 Documented By: Jluis Campos, 11/10/23 0607 Signed By: <Electronically signed by Jluis Campos, DO> 11/10/2320 [facility] Work Phone: [phone]) 482-360507-09-2024 [facility] History of Present illness Narrative* Jonas [...] to make adjustments and amiodarone before my fci. Vitals: 10/07/23 0948 BP: 114/90 BP Location: [...] mellitus with other specified complication, unspecified whether residential insulin use (Multi) Managed by other providers 7. BMI 28.0-28.9,adult The merits of diet and weight loss were advocated Scribe Attestation By signing my name below, I, Samantha Carrizales LPNibmitzi attest that this documentation has been [...] and plan. [facility] Work Phone: 1(354) 753-784506-10-2024 Instructions* Patient Instructions* Cary Mcdonnell RN - [...] Education Given [facility] Work Phone: 1(605) 645-804405-18-2024 Progress note Author Faraz Gilliam [facility] September 14, 2023 1:34pm Note Date/Time September 14, 2023 1:26p [facility] ENTER [address] [place], [place] [id number] Cardiology Progress Note Signed Patient: Taye Gay MR#: [id number] : 1955 Acct:[id number] Age/Sex: 67 / F Adm Date: 4 Loc: 3T Room: [address] [place] [address] Type: ADM IN Attending Dr: Elva Florian [...] signed by Faraz Gilliam MD> 09/14/23 1334 [facility] Work Phone: 1([phone] 108-817905-18-2024 Progress note Author Elva Florian [facility] September 14, 2023 2:03am Note Date/Time September 13, 2023 6:15p m [facility] ENTER [address] [place] [address] Hospitalist Progress Note Signed Patient: Taye Gay MR#: [id number] : 1955 Acct:[id number] Age/Sex: 67 / F Adm Date: 4 Loc: Room: [address] [place] [address] Type: ADM IN Attending Dr: Elva Florian [...] Insuln.Pen SUBCUT 09/11/24 21:59 Not Given TID.WM.HS [facility] Protocol Insulin Glargine 20 units 09/13/23 [...] 09:00 09/13/23 08:38 Pantoprazole 40 [address] Tablet.Dr MINOR 09/12/24 08:59 40 mg DAILY PARMJIT Administration [...] Plan Documented By: Elva Florian MD 09/13/23 6608 Signed By: <Electronically signed by Elva Florian MD> 09/14/23 0202 [facility] Work Phone: [phone] 688-687805-17-2024 Consult note Author Jonas Ch [facility] September 13, 2023 12:25pm Note Date/Time September 13, 2023 12:26 pm [facility] [address] [place] [address] Cardiology Consult Note Signed Patient: Taye Gay MR#: [id number] : 1955 Acct:[id number] Age/Sex: 67 / F Adm Date: 4 Loc: Room: 9Y1382-4 Type: ADM INOo Attending Dr: Elva Florian [...] disease History of stroke [facility] Problem: Diagnosed with Stroke Cancer throat heart [...] Confirmed 09/12/23] pen needle, diabetic [Sure-Fine [place]] 06/12/23 [History Confirmed 09/12/23] nortriptyline 50 mg [...] x10E3/uL Lymph # (Auto) 2.0 (1.00-4.8) x10E3/uL Kane # (Auto) 0.6 (0.0-0.8) x10E3/uL Eos # [...] ml @ 999 mls/hr IV .Q1H1M ONE Rx#:[id number] Oral 50 / 50 Output: Urine 600 [...] <Electronically signed by MD Jonas Ch> 09/13/23 3947 [facility] Work Phone: [phone]) 279-436805-17-2024 History and physical note Author Elva Florian [facility] September 13, 2023 2:09am Note Date/Time September 12, 2023 7:53p m [facility] [address] [place] [address] Hospitalist H&P Signed Patient: Taye Gay MR#: [id number] : 1955 Acct:[id number] Age/Sex: 67 / F Adm Date: 4 Loc: 3T Room: [id number] Type: ADM INOo Attending Dr: Elva Florian [...] Confirmed 09/12/23] pen needle, diabetic [Sure-Fine [place]] 06/12/23 [History Confirmed 09/12/23] nortriptyline 50 mg [...] % (Auto) 20.2 % (.) 09/12/23 14:51 Kane % (Auto) 5.9 % (.) 09/12/23 14:51 Eos % (Auto) 1.7 % (.) 09/12/23 14:51 Baso % (Auto) 0.9 % (.) 09/12/23 14:51 Nucleat RBC Rel Count 0.2 /100 WBC (0-0.5) 09/12/23 14:51 Neut # (Auto) 7.0 x10E3/uL (1.8-7.7) 09/12/23 14:51 Lymph # (Auto) 2.0 x10E3/uL (1.00-4.8) 09/12/23 14:51 Kane # (Auto) 0.6 x10E3/uL (0.0-0.8) 09/12/23 14:51 [...] <Electronically signed by Elva Florian MD> 09/13/23208 [facility] Work Phone: [phone] 400-811002-12-2024 Evaluation note* Encounter Date Diagnosis Assessment Notes Treatment Notes Treatment Clinical Notes May, Type 2 diabetes mellitus with hyperglycemia (ICD-10 - E11.65) [facility] Other 01-23-2024 Evaluation note* Encounter Date Diagnosis Assessment Notes Treatment Notes Treatment Clinical Notes Apr, Primary insomnia (ICD-10 - F51.01) [facility] [facility] Other 12-11-2023 Evaluation note* Encounter Date Diagnosis Assessment Notes Treatment Notes Treatment Clinical Notes Mar, Type 2 diabetes mellitus with hyperglycemia (ICD-10 - E11.65) [facility] Other 11-06-2023 Evaluation note* Encounter Date Diagnosis [...] Discussed can start famotidine PRN breakthrough GERD [facility] Other 10-02-2023 Evaluation note* Encounter Date Diagnosis Assessment Notes Treatment Notes Treatment Clinical Notes Jan, Primary insomnia (ICD-10 - F51.01) [facility] [facility] Other 09-11-2023 Evaluation note* Encounter Date Diagnosis Assessment Notes Treatment Notes Treatment Clinical Notes Dec, Type 2 diabetes mellitus with hyperglycemia (ICD-10 - E11.65) Managing type 2 diabetes material was published 1. Controlled, Type 2 diabetes with A1c 6.3% 2. Blood glucose levels improved. According to [employer] cgm download 12/25/2022- 3: Avg glucose 156. 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) [...] to make it easier material was published [facility] [facility] Other 09-06-2023 Evaluation note* Encounter Date Diagnosis Assessment Notes Treatment Notes Treatment Clinical Notes Dec, Esophageal stricture (ICD-10 - K22.2) Dec, Dysphagia (ICD-10 - R13.10) Patient has a narrow esophagus but is improving Patient is to continue omeprazole daily [facility] [facility] Other 09-01-2023 Evaluation note* Encounter Date Diagnosis Assessment Notes Treatment Notes Treatment Clinical Notes Dec, Primary insomnia (ICD-10 - F51.01) [facility] [facility] Other 08-22-2023 Evaluation note* Encounter Date Diagnosis Assessment Notes Treatment Notes Treatment Clinical Notes Nov, Primary insomnia (ICD-10 - F51.01) [facility] [facility] Other 08-02-2023 Evaluation note* Encounter Date Diagnosis [...] above visit was performed by Loren Denise LPN IV-CC, under direct supervision of Dr. Sandra Keita [...] above visit was performed by Loren Denise LPN IV-CC under direct supervision of Dr. Sandra Keita DO. Document reviewed and amended by provider signed below. [facility] [facility] Other 07-11-2023 Evaluation note* Encounter Date Diagnosis Assessment Notes Treatment Notes Treatment Clinical Notes Oct, Primary insomnia (ICD-10 - F51.01) [employer] [facility] Other 06-01-2023 Evaluation note* Encounter Date Diagnosis Assessment Notes Treatment Notes Treatment Clinical Notes Sep, Type 2 diabetes mellitus with hyperglycemia (ICD-10 - E11.65) Managing type 2 diabetes material was published 1. Controlled, Type 2 diabetes with A1c 6.6% 2. Blood glucose levels improved. According to [employer] cgm download 09/13/2022- 3: Avg glucose 151. [...] or diabetes medication issues. 6. Prescriptions: DEISY ALMANZAR MEAGHAN: None at this time. 7. Prescriptions will 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, alf current use of insulin (ICD-10 - Z79.4) Sep, Peripheral neuropathy (ICD-10 - G62.9) Living with peripheral neuropathy material was published Sep, Vitamin B 12 deficiency (ICD-10 - E53.8) Good food sources of vitamin B12 material was published 08/2022 Vit b12 392 at target Sep, BMI 29.0-29.9,adult (ICD-10 - Z68.29) Eating healthy: tips to make it easier material was published [employer] [facility] Other 05-15-2023 Evaluation note* Encounter Date Diagnosis Assessment Notes Treatment Notes Treatment Clinical Notes August, Primary hypertension (ICD-10 - I10) August, Type 2 diabetes mellitus with hyperglycemia (ICD-10 - E11.65) [employer] [facility] Other 04-13-2023 Evaluation note* Encounter Date Diagnosis [...] Due for LDCT for lung CA screening [facility] [facility] Other 04-10-2023 Evaluation note* Encounter Date Diagnosis Assessment Notes Treatment Notes Treatment Clinical Notes Jul, Primary insomnia (ICD-10 - F51.01) [facility] [facility] Other 03-08-2023 Evaluation note* Encounter Date Diagnosis Assessment Notes Treatment Notes Treatment Clinical Notes Jun, Primary insomnia (ICD-10 - F51.01) [facility] [facility] Other 02-21-2023 Evaluation note* Encounter Date Diagnosis Assessment Notes Treatment Notes Treatment Clinical Notes May, Type 2 diabetes mellitus with hyperglycemia (ICD-10 - E11.65) [employer] [facility] Other 02-20-2023 Evaluation note* Encounter Date Diagnosis Assessment Notes Treatment Notes Treatment Clinical Notes May, Type 2 diabetes mellitus with hyperglycemia (ICD-10 - E11.65) Managing type 2 diabetes material was published 1. Uncontrolled, Type 2 diabetes with A1c 7.1% 2. Blood glucose levels improved. According to [employer] cgm download 06/04/2022-06/17/2022 : Avg glucose 180. [...] hypertension material was published on vita May, alf current use of insulin (ICD-10 - Z79.4) May, Peripheral neuropathy (ICD-10 - G62.9) Living with peripheral neuropathy material was published May, Vitamin B 12 deficiency (ICD-10 - E53.8) Good food sources of vitamin B12 material was published 08/2021 Vit b12 368 at target May, BMI 35.0-35.9,adult (ICD-10 - Z68.35) Setting weight-loss goals material was published [employer] Other 02-06-2023 Evaluation note* Encounter Date Diagnosis Assessment Notes Treatment Notes Treatment Clinical Notes May, Primary insomnia (ICD-10 - F51.01) [employer] [facility] Other 01-26-2023 Evaluation note* Encounter Date Diagnosis Assessment Notes Treatment Notes Treatment Clinical Notes Apr, Hyperlipidemia (ICD-10 - E78.5) [facility] [facility] Other 12-06-2022 Evaluation note* Encounter Date Diagnosis Assessment Notes Treatment Notes Treatment Clinical Notes Mar, Type 2 diabetes mellitus with hyperglycemia (ICD-10 - E11.65) [facility] [facility] Other 10-19-2022 Evaluation note* Encounter Date Diagnosis Assessment Notes Treatment Notes Treatment Clinical Notes Jan, Primary hypertension (ICD-10 - I10) [employer] [facility] Other 09-13-2022 Evaluation note* Encounter Date Diagnosis Assessment Notes Treatment Notes Treatment Clinical Notes Dec, Type 2 diabetes mellitus with hyperglycemia (ICD-10 - E11.65) Managing type 2 diabetes material was published 1. Uncontrolled, Type 2 diabetes with A1c 7.7% 2. Blood glucose levels above target. According to [employer] cgm download 12/26/2021- 2: Avg glucose 211. >250-19%, >180-33%, 70-180-48%, <70-0%, <54-0%. CV 36.7%. Reviewed downlod with pt., readings above target fasting am/posptrandial. Recommend starting basal insulin. Sample ashley given pt administered 20 units. Reviewed with [...] given. Sent order for toujeo to deisy squires. Dec, Dietary counseling and surveillance (ICD-10 - Z71.3) Eat well, exercise well, be well: dietary and fitness guidelines material was published Dec, Hyperlipidemia (ICD-10 - E78.5) Managing your cholesterol material was published 08/2021 ldl 68- at target. 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) [...] last visit, continue with weight loss efforts [employer] [facility] Other 08-17-2022 Progress note Author Walter [place] [facility] December 13, 2021 8:52am Note Date/Time December 13, 2021 8: 52am [facility] [address] [place] [address] General Surgery Progress Note Signed Patient: Taye Gay MR#: [id number] : 1955 Acct:[id number] Age/Sex: 66 / F Adm Date: 2 Loc: 3T Room: [address] [place] [address] Type: ADM INOo Attending Dr: Wilmer Vance [...] 12/09/21] insulin lispro 100 unit/mL [facility]) 1 sliding scale [...] 81 Mg Tablet.) 81 mg PO DAILY [facility] Stop: 12/10/22 08:59 Last Admin: 12/12/21 10:33 Dose: Not Given Atorvastatin Calcium (Atorvastatin 10 Mg Tablet) 10 mg PO DAILY [facility] Stop: 12/10/22 08:59 Last Admin: 12/12/21 10:33 Dose: Not Given Cyanocobalamin (Cyanocobalamin 1,000 Mcg Tablet) 1,000 mcg PO DAILY [facility] Stop: 12/13/22 08:59 Dextrose (Dextrose 50% In Water 25 Gm/50 Ml Syringe) 0 gm IV-PUSH PRN PRN PRN Reason: Hypoglycemia Stop: 12/09/22 11:18 Docusate Sodium (Docusate 100 Mg Capsule) 100 mg PO TID [facility] Stop: 12/12/22 21:59 Last Admin: 12/12/21 22:26 Dose: 100 mg Enoxaparin Sodium (Enoxaparin 40 Mg/0.4 Ml Syringe) 40 mg SUBCUT DAILY@10 [facility] Stop: 12/10/22 09:59 Last Admin: 12/12/21 [...] 50 mls @ 100 mls/hr IV Q24H [facility] Last Admin: 12/12/21 11:57 Dose: 100 mls/hr Sodium Chloride (0.9% Sodium Chloride 1,000 Ml) 1,000 mls @ 100 mls/hr IV .[id number] Stop: 12/12/22 00:00 Last Infusion: 12/13/21 03:35 Dose: Infused Lactated Ringer's (Lactated Ringers) 1,000 mls @ 20 mls/hr IV .Q24H ONE Stop: 12/13/21 11:13 Last Infusion: 12/13/21 03:31 Dose: Infused Insulin Aspart (Insulin Aspart 300 Units/3 Ml Insuln.Pen) 0 units SUBCUT TID.WM.HS [facility]; Protocol Stop: 12/09/22 11:59 Last Admin: 12/13/21 08:07 Dose: 4 units Nortriptyline HCl (Nortriptyline 25 Mg Capsule) 50 mg PO BID [facility] Stop: 12/09/22 20:59 Last Admin: 12/12/21 22:27 Dose: 50 mg Omeprazole (Omeprazole 20 Mg Capsule.Dr) 20 mg PO DAILY [facility] Stop: 12/10/22 08:59 Last Admin: 12/12/21 10:33 Dose: Not Given Ondansetron HCl (Ondansetron 4 Mg/2 Ml Vial) 4 mg IV-PUSH Q6H PRN PRN Reason: Nausea And Vomiting Stop: 12/12/22 18:19 Pioglitazone HCl (Pioglitazone 15 Mg Tablet) 15 mg PO DAILY [facility] Stop: 12/10/22 08:59 Last Admin: 12/12/21 [...] 15 Mg Capsule) 30 mg PO QHS [facility] Stop: 12/09/22 21:59 Last Admin: 12/12/21 [...] % (Auto) 90.4, Lymph % (Auto) 7.7, Kane % (Auto) 1.8, Eos % (Auto) 0.0, Baso % (Auto) 0.1, Neut # (Auto) 8.5 H, Lymph # (Auto) 0.7 L, Kane # (Auto) 0.2, Eos # (Auto) 0.0, [...] % (Auto) 72.7, Lymph % (Auto) 16.1, Kane % (Auto) 8.8, Eos % (Auto) 2.1, Baso % (Auto) 0.3, Neut # (Auto) 5.3, Lymph # (Auto) 1.2, Kane # (Auto) 0.6, Eos# (Auto) 0.2, Baso [...] % (Auto) 66.8, Lymph % (Auto) 21.0, Kane % (Auto) 9.2, Eos % (Auto) 2.6, Baso % (Auto) 0.4, Neut # (Auto) 4.1, Lymph # (Auto) 1.3, Kane # (Auto) 0.6, Eos # (Auto) 0.2, [...] signed by DO Walter [place]> 12/13/21 0852 [facility] Work Phone: [phone] Progress note Author Teresa Strong [facility] December 12, 2021 8:43pm Note Date/Time December 12, 2021 2: 49pm [facility] [address] [place] [address] Urology Progress Note Signed Patient: Taye Gay MR#: [id number] : 1955 Acct:[id number] Age/Sex: 66 / F Adm Date: 2 Loc: 3T Room: [address] [place] [address] Type: ADM INOo Attending Dr: Arleen Stephen [...] % (Auto) 72.7, Lymph % (Auto) 16.1, Kane % (Auto) 8.8, Eos % (Auto) 2.1, Baso % (Auto) 0.3, Neut # (Auto) 5.3, Lymph # (Auto) 1.2, Kane # (Auto) 0.6, Eos# (Auto) 0.2, Baso [...] % (Auto) 66.8, Lymph % (Auto) 21.0, Kane % (Auto) 9.2, Eos % (Auto) 2.6, Baso % (Auto) 0.4, Neut # (Auto) 4.1, Lymph # (Auto) 1.3, Kane # (Auto) 0.6, Eos # (Auto) 0.2, [...] <Electronically signed by Teresa Strong MD> 12/12/21 [facility] Work Phone: [phone]) 532-850008-16-2022 Progress note Author Arleen Stephen [facility] December 12, 2021 1:20pm Note Date/Time December 12, 2021 1: 20pm [facility] [address] [place], [place] [address] Hospitalist Progress Note Signed Patient: Taye Gay MR#: [id number] : 1955 Acct:[id number] Age/Sex: 66 / F Adm Date: 2 Loc: Room: [address] [place] [address] Type: ADM INOo Attending Dr: Arleen Stephen [...] signed by Arleen Stephen MD> 12/12/21 1320 [facility] Work Phone: [phone] 161-341308-16-2022 Progress note Author Walter [place] [facility] December 12, 2021 8:07am Note Date/Time December 12, 2021 8: 07am [facility] [address] [place] [address] General Surgery Progress Note Signed Patient: Taye Gay MR#: [id number] : 1955 Acct:[id number] Age/Sex: 66 / F Adm Date: 2 Loc: Room: [address] [place] [address] Type: ADM Marmolejo Attending Dr: Arleen Stephen [...] Ml) 1,000 mls @ 100 mls/hr IV .[id number] Stop: 12/12/22 00:00 Last Admin: 12/12/21 00:10 Dose: 100 mls/hr Insulin Aspart (Insulin Aspart 300 Units/3 Ml Insuln.Pen) 0 units SUBCUT TID.WM.HS [facility]; Protocol Stop: 12/09/22 11:59 Last Admin: 12/11/21 21:21 Dose: 3 units Nortriptyline HCl (Nortriptyline 25 Mg Capsule) 50 mg PO BID [facility] Stop: 12/09/22 20:59 Last Admin: 12/11/21 21:20 Dose: 50 mg Omeprazole (Omeprazole 20 Mg Capsule.Dr) 20 mg PO DAILY [facility] Stop: 12/10/22 08:59 Last Admin: 12/11/21 08:00 Dose: 20 mg Ondansetron HCl (Ondansetron 4 Mg/2 Ml Vial) 4 mg IV-PUSH Q8H PRN PRN Reason: Nausea And Vomiting Stop: 12/09/22 11:18 Pioglitazone HCl (Pioglitazone 15 Mg Tablet) 15 mg PO DAILY [facility] Stop: 12/10/22 08:59 Last Admin: 12/11/21 [...] 15 Mg Capsule) 30 mg PO QHS [facility] Stop: 12/09/22 21:59 Last Admin: 12/11/21 [...] % (Auto) 66.8, Lymph % (Auto) 21.0, Kane % (Auto) 9.2, Eos % (Auto) 2.6, Baso % (Auto) 0.4, Neut # (Auto) 4.1, Lymph # (Auto) 1.3, Kane # (Auto) 0.6, Eos # (Auto) 0.2, [...] <Electronically signed by DO Walter [place]> 12/12/21806 [facility] Work Phone: [phone]) 370-901308-15-2022 Consult note Author Teresa Strong [facility] December 11, 2021 9:25pm Note Date/Time December 11, 2021 8: 10pm [facility] [address] [place] [address] Urology Consult Note Signed Patient: Taye Gay MR#: [id number] : 1955 Acct:[id number] Age/Sex: 66 / F Adm Date: 2 Loc: Room: [address] [place] [address] Type: ADM INOo Attending Dr: Arleen Stephen [...] 12/09/21] insulin lispro 100 unit/mL [facility] Insulin lispro) 1 [...] % (Auto) 66.8, Lymph % (Auto) 21.0, Kane % (Auto) 9.2, Eos % (Auto) 2.6, Baso % (Auto) 0.4, Neut # (Auto) 4.1, Lymph # (Auto) 1.3, Kane # (Auto) 0.6, Eos # (Auto) 0.2, [...] % (Auto) 63.3, Lymph % (Auto) 24.1, Kane % (Auto) 10.5, Eos % (Auto) 1.8, Baso % (Auto) 0.3, Neut # (Auto) 4.7, Lymph # (Auto) 1.8, Kane # (Auto) 0.8, Eos # (Auto) 0.1, [...] <Electronically signed by Teresa Strong MD> 12/11/212124 [facility] Work Phone: [phone] Consult note Author Walter [place] [facility] December 11, 2021 3:18pm Note Date/Time December 11, 2021 3: 18pm [facility] [address] [place] [address] General Surgery Consult Note Signed Patient: Taye Gay MR#: [id number] : 1955 Acct:[id number] Age/Sex: 66 / F Adm Date: 2 Loc: 3T Room: [address] [place] [address] Type: ADM INOo Attending Dr: Arleen Stephen [...] 12/09/21] insulin lispro 100 unit/mL subcutaneous pen ([facility] SoloStar U-100 Insulin lispro) 1 sliding scale [...] 81 Mg Tablet.) 81 mg PO DAILY [facility] Stop: 12/10/22 08:59 Last Admin: 12/11/21 08:00 Dose: 81 mg Atorvastatin Calcium (Atorvastatin 10 Mg Tablet) 10 mg PO DAILY [facility] Stop: 12/10/22 08:59 Last Admin: 12/11/21 08:00 Dose: 10 mg Dextrose (Dextrose 50% In Water 25 Gm/50 Ml Syringe) 0 gm IV-PUSH PRN PRN PRN Reason: Hypoglycemia Stop: 12/09/22 11:18 Enoxaparin Sodium (Enoxaparin 40 Mg/0.4 Ml Syringe) 40 mg SUBCUT DAILY@10 [facility] Stop: 12/10/22 09:59 Last Admin: 12/11/21 [...] 50 mls @ 100 mls/hr IV Q24H [facility] Last Infusion: 12/11/21 10:15 Dose: Infused Insulin Aspart (Insulin Aspart 300 Units/3 Ml Insuln.Pen) 0 units SUBCUT TID.WM.HS [facility]; Protocol Stop: 12/09/22 11:59 Last Admin: 12/11/21 11:33 Dose: 3 units Nortriptyline HCl (Nortriptyline 25 Mg Capsule) 50 mg PO BID [facility] Stop: 12/09/22 20:59 Last Admin: 12/11/21 08:00 Dose: 50 mg Omeprazole (Omeprazole 20 Mg Capsule.) 20 mg PO DAILY [facility] Stop: 12/10/22 08:59 Last Admin: 12/11/21 [...] 24 hour I&O: Intake & Output 12/10/21 12/11/2122 23:59 07:59 15:59 Intake Total 1320 / [...] % (Auto) 66.8, Lymph % (Auto) 21.0, Kane % (Auto) 9.2, Eos % (Auto) 2.6, Baso % (Auto) 0.4, Neut # (Auto) 4.1, Lymph # (Auto) 1.3, Kane # (Auto) 0.6, Eos# (Auto) 0.2, Baso [...] % (Auto) 63.3, Lymph % (Auto) 24.1, Kane % (Auto) 10.5, Eos % (Auto) 1.8, Baso % (Auto) 0.3, Neut # (Auto) 4.7, Lymph # (Auto) 1.8, Kane # (Auto) 0.8, Eos # (Auto) 0.1, [...] % (Auto) 79.8, Lymph % (Auto) 9.6, Kane % (Auto) 9.1, Eos % (Auto)1.1, Baso % (Auto) 0.4, Neut # (Auto) 10.3 H, Lymph # (Auto) 1.2, Kane # (Auto) 1.2 H, Eos # (Auto) 0.1, Baso # (Auto) 0.1, Nucleated RBC % (auto) 0.0 12/09/21 08:35: Urine Color Yellow, Urine Appearance Cloudy A, Urine pH 5.5, Ur Specific [place] 1.030, Urine Protein Negative, Urine Glucose (UA) [...] <Electronically signed by DO Walter [place]> 12/11/211517 [facility] Work Phone: [phone] Progress note Author Arleen Stephen [facility] December 11, 2021 1:33pm Note Date/Time December 11, 2021 1: 30pm [facility] [address] [place] [address] Hospitalist Progress Note Signed Patient: Taye Gay MR#: [id number] : 1955 Acct:[id number] Age/Sex: 66 / F Adm Date: 2 Loc: Room: [address] [place] [address] Type: ADM INOo Attending Dr: Arleen Stephen [...] signed by Arleen Stephen MD> 12/11/21 1333 [facility] Work Phone: [phone]) 737-103608-14-2022 Progress note Author Arleen Stephen [facility] December 10, 2021 11:26am Note Date/Time December 10, 2021 11 :26am [facility] [address] [place] [address] Hospitalist Progress Note Signed Patient: Taye Gay MR#: [id number] : 1955 Acct:[id number] Age/Sex: 66 / F Adm Date: 2 Loc: Room: [address] [place] [address] Type: ADM IN Attending Dr: Arleen Stephen [...] 1,000 Ml IV 12/09/22 11:29 75 mls/hr .[id number] PARMJIT Administration Ceftriaxone Sodium 1 gm in [...] signed by Arleen Stephen MD> 12/10/21 1126 [facility] Work Phone: 1([phone]) 202-855808-13-2022 History and physical note Author Arleen Stephen [facility] December 09, 2021 11:38am Note Date/Time December 09, 2021 11 :38am [facility] [address] [place] [address] Hospitalist H&P Signed Patient: Taye Gay MR#: [id number] : 1955 Acct:[id number] Age/Sex: 66 / F Adm Date: 2 Loc: ER Room: Type: [facility] ER Attending Dr: Copies to: NON STAFF MD Tray Kay DO~ HPI DATE OF EXAMINATION: 12/09/21 CHIEF [...] 02/09/21] insulin lispro 100 unit/mL [facility] Insulin lispro) 1 [...] % (Auto) 9.6 % (.) 12/09/21 08:50 Kane % (Auto) 9.1 % (.) 12/09/21 08:50 Eos % (Auto) 1.1 % (.) 12/09/21 08:50 Baso % (Auto) 0.4 % (.) 12/09/21 08:50 Neut # (Auto) 10.3 x10E3/uL (1.8-7.7) H 12/09/21 08:50 Lymph # (Auto) 1.2 x10E3/uL (1.00-4.8) 12/09/21 08:50 Kane # (Auto) 1.2 x10E3/uL (0.0-0.8) H 12/09/21 [...] pH 5.5 (5.0-9.0) 12/09/21 08:35 Ur Specific [place] 1.030 (1.001-1.030) 12/09/21 08:35 Urine Protein Negative [...] signed by Arleen Stephen MD> 12/09/21 1138 [facility] Work Phone: [phone] Evaluation note* Encounter Date Diagnosis Assessment Notes [...] good exercise tolerance overall. She does see [facility] for management of her [...] to get her started back on this. [employer] Other 03-14-2022 Evaluation note* Encounter Date Diagnosis Assessment Notes Treatment Notes Treatment Clinical Notes Jun, Type 2 diabetes mellitus with hyperglycemia (ICD-10 - E11.65) Managing type 2 diabetes material was published 1. Controlled, Type 2 diabetes with A1c 6% 2. Blood glucose levels improved. According to [employer] cgm download 06/26/2021- 2: Avg glucose 132. [...] to ask: hypertension material was published Jun, alf current use of insulin (ICD-10 - Z79.4) [...] (ICD-10 - L84) f/u with Dr. Limon [facility] [facility] Other 03-07-2022 Evaluation note* Encounter Date Diagnosis [...] apnea would also be evaluated if needed [facility] [facility] Other 01-10-2022 Evaluation note* Encounter Date Diagnosis [...] Reglan to see how she does. Apr, alf (current) use of insulin (ICD-10 - Z79.4) Apr, Other Patient sees Dr Kenisha Castro and is up-to-date on Paps and mammograms. She did have a colonoscopy done 5 years ago and states it was normal and she is due in 5 more years. I discussed other preventative measures such as vaccines but the patient is not at all interested in any vaccines. [facility] [facility] Other 12-14-2021 Evaluation note* Encounter Date Diagnosis Assessment Notes Treatment Notes Treatment Clinical Notes Mar, Type 2 diabetes mellitus with hyperglycemia (ICD-10 - E11.65) [facility] [facility] Other 12-06-2021 Evaluation note* Encounter Date Diagnosis [...] Pain in left leg (ICD-10 - M79.605) [facility] [facility] Other 11-29-2021 Evaluation note* Encounter Date Diagnosis Assessment Notes Treatment Notes Treatment Clinical Notes Feb, Type 2 diabetes mellitus with hyperglycemia (ICD-10 - E11.65) Managing type 2 diabetes material was published 1. Controlled, Type 2 diabetes with A1c 6.9% 2. Blood glucose levels according to [employer] cgm download 03/14/2021- 021: Avg glucose 167. [...] hypertension material was published On [employer]. Feb, alf current use of insulin (ICD-10 - Z79.4) [...] eating on a budget material was published [facility] [facility] Other 11-01-2021 Evaluation note* Encounter Date Diagnosis [...] in her feet sounds neurologic in origin. [facility] [facility] Other Chief complaint+Reason for visit Narrative* Reason for Visit [id number] Dietary counseling and surveillance Hyperlipidemia Hypertension Insulin long-term use Peripheral neuropathy Type 2 diabetes mellitus Vitamin B 12 deficiency [facility] Work Phone: Consult note Author Walter [place] [facility] December 11, 2021 3:18pm Note Date/Time December 11, 2021 3: 18pm [facility] [address] [place] [address] General Surgery Consult Note Signed Patient: Taye Gay MR#: [id number] : 1955 Acct:[id number] Age/Sex: 66 / F Adm Date: 2 Loc: Room: [address] [place] [address] Type: ADM INOo Attending Dr: Arleen tSephen MD Copies to: NON STAFF MD Walter [...] 81 Mg Tablet.) 81 mg PO DAILY [facility] Stop: 12/10/22 08:59 Last Admin: 12/11/21 08:00 Dose: 81 mg Atorvastatin Calcium (Atorvastatin 10 Mg Tablet) 10 mg PO DAILY [facility] Stop: 12/10/22 08:59 Last Admin: 12/11/21 08:00 Dose: 10 mg Dextrose (Dextrose 50% In Water 25 Gm/50 Ml Syringe) 0 gm IV-PUSH PRN PRN PRN Reason: Hypoglycemia Stop: 12/09/22 11:18 Enoxaparin Sodium (Enoxaparin 40 Mg/0.4 Ml Syringe) 40 mg SUBCUT DAILY@10 [facility] Stop: 12/10/22 09:59 Last Admin: 12/11/21 [...] 50 mls @ 100 mls/hr IV Q24H [facility] Last Infusion: 12/11/21 10:15 Dose: Infused Insulin Aspart (Insulin Aspart 300 Units/3 Ml Insuln.Pen) 0 units SUBCUT TID.WM.HS [facility]; Protocol Stop: 12/09/22 11:59 Last Admin: 12/11/21 11:33 Dose: 3 units Nortriptyline HCl (Nortriptyline 25 Mg Capsule) 50 mg PO BID [facility] Stop: 12/09/22 20:59 Last Admin: 12/11/21 08:00 Dose: 50 mg Omeprazole (Omeprazole 20 Mg Capsule.Dr) 20 mg PO DAILY [facility] Stop: 12/10/22 08:59 Last Admin: 12/11/21 08:00 Dose: 20 mg Ondansetron HCl (Ondansetron 4 Mg/2 Ml Vial) 4 mg IV-PUSH Q8H PRN PRN Reason: Nausea And Vomiting Stop: 12/09/22 11:18 Pioglitazone HCl (Pioglitazone 15 Mg Tablet) 15 mg PO DAILY [facility] Stop: 12/10/22 08:59 Last Admin: 12/11/21 [...] 15 Mg Capsule) 30 mg PO QHS [facility] Stop: 12/09/22 21:59 Last Admin: 12/10/21 [...] % (Auto) 66.8, Lymph % (Auto) 21.0, Kane % (Auto) 9.2, Eos % (Auto) 2.6, Baso % (Auto) 0.4, Neut # (Auto) 4.1, Lymph # (Auto) 1.3, Kane # (Auto) 0.6, Eos# (Auto) 0.2, Baso [...] % (Auto) 63.3, Lymph % (Auto) 24.1, Kane % (Auto) 10.5, Eos % (Auto) 1.8, Baso % (Auto) 0.3, Neut # (Auto) 4.7, Lymph # (Auto) 1.8, Kane # (Auto) 0.8, Eos # (Auto) 0.1, [...] % (Auto) 79.8, Lymph % (Auto) 9.6, Kane % (Auto) 9.1, Eos % (Auto)1.1, Baso % (Auto) 0.4, Neut # (Auto) 10.3 H, Lymph # (Auto) 1.2, Kane # (Auto) 1.2 H, Eos # (Auto) 0.1, Baso # (Auto) 0.1, Nucleated RBC % (auto) 0.0 12/09/21 08:35: Urine Color Yellow, Urine Appearance Cloudy A, Urine pH 5.5, Ur Specific [place] 1.030, Urine Protein Negative, Urine Glucose (UA) [...] <Electronically signed by DO Walter [place]> 12/11/211517 [facility] Work Phone: Consult note Author Teresa Strong [facility] December 11, 2021 9:25pm Note Date/Time December 11, 2021 8: 10pm [facility] [address] [place] [address] Urology Consult Note Signed Patient: Taye Gay MR#: [id number] : 1955 Acct:[id number] Age/Sex: 66 / F Adm Date: 2 Loc: Room: [address] [place] [address] Type: ADM INOo Attending Dr: Arleen Stephen [...] % (Auto) 66.8, Lymph % (Auto) 21.0, Kane % (Auto) 9.2, Eos % (Auto) 2.6, Baso % (Auto) 0.4, Neut # (Auto) 4.1, Lymph # (Auto) 1.3, Kane # (Auto) 0.6, Eos # (Auto) 0.2, [...] % (Auto) 63.3, Lymph % (Auto) 24.1, Kane % (Auto) 10.5, Eos % (Auto) 1.8, Baso % (Auto) 0.3, Neut # (Auto) 4.7, Lymph # (Auto) 1.8, Kane # (Auto) 0.8, Eos # (Auto) 0.1, [...] <Electronically signed by Teresa Strong MD> 12/11/[address] [place] [address] Ctr Work Phone: Consult note Author Lit Clark [facility] Note Date/Time April 29, 2024 11 :07am [facility] [address] [place] [address] Neurology Consult Note Signed Patient: Taye Gay MR#: [id number] : 1955 Acct:[id number] Age/Sex: 68 / F Adm Date: 4 Loc: Room: [address] [place] [address] Type: ADM IN Attending Dr: Priscilla Lang MD Copies to: DO Sandra Garrido DO Rafik Massouh, MD~ HPI Consult Date: 04/29/24 Hydrographic Engineer: Lit Clark DO Reason for consult: Slurred [...] (Stool Softener) 100 mg PO DAILY PRN [id number]/14/24 [History Confirmed 04/28/24] multivitamin 1 tab PO DAILY 06/12/23 [History Confirmed 04/28/24] pen needle, diabetic [Sure-Fine [place]] 06/12/23 [History Confirmed 04/28/24] metformin 500 mg [...] Oz Bowling M.D.04/28/2024 9:46 PM Dictation Location: [place] [address] 04/28/24 19:44 IMPRESSION: No acute intracranial pathology. No evidence of focal stenosis, aneurysmal dilatation, dissection or occlusion. 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 necessarily of transient ischemia or of [...] <Electronically signed by Lit Clark DO> 04/29/24 0357 [facility] Work Phone: Discharge summary Author Wilmer Vance [facility] December 13, 2021 1:58pm Note Date/Time December 13, 2021 1: 58pm [facility] [address] [place] [address] Discharge Summary Signed Patient: Taye Gay MR#: [id number] : 1955 Acct:[id number] Age/Sex: 66 / F Adm Date: 2 Loc: Room: [address] [place] [address]: Wilmer Vance MD Copies to: [...] % (Auto) 90.4, Lymph % (Auto) 7.7, Kane % (Auto) 1.8, Eos % (Auto) 0.0, Baso % (Auto) 0.1, Neut # (Auto) 8.5 H, Lymph # (Auto) 0.7 L, Kane # (Auto) 0.2,Eos # (Auto) 0.0, Baso [...] scheduled appointment Instructions: Cholecystectomy, Laparoscopic Surgery, Acetaminophen, Cefuroxime,[facility] Catheter Care at Home [...] <Electronically signed by Wilmer Vance MD> 12/13/21 1357 [facility] Work Phone: Discharge summary Author Elva Florian [facility] September 15, 2023 1:17am Note Date/Time September 14, 2023 2:20p m [facility] [address] [place] [address] Discharge Summary Signed Patient: Taye Gay MR#: [id number] : 1955 Acct:[id number] Age/Sex: 67 / F Adm Date: 4 Loc: Room: [address] [place] [address]: Elva Florian MD Copies to: [...] .Route (DME) pen needle, diabetic [Sure-Fine [place]] .Route (DME) FreeStyle Brent 14 Day Sensor [...] 2.48 Documented By: Elva Florian MD 09/14/23 141 Signed By: <Electronically signed by Elva Florian MD> 09/15/23 0117 [facility] Work Phone: Discharge summary Author Priscilla Lang [facility] Note Date/Time April 30, 2024 10 :28am [facility] [address] [place] [address] Discharge Summary Signed Patient: Taye Gay MR#: [id number] : 1955 Acct:[id number] Age/Sex: 68 / F Adm Date: 4 Loc: 3T Room: [address] [place] [address]: Priscilla Lang MD Copies to: [...] taking multiple medications that could potentially cause 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 Diagnosis is [...] polypharmacy regimen to reduce her risk of SCHO[employer] BUS ATTENDANT side effects or drug?drug interaction. At this [...] ask her primary care doctor to obtain [facility] record entirely to address abnormalities seen on [...] ask your primary care provider to obtain [facility] records entirely to follow up on [...] or having drug?drug interaction. Discharging you from [facility] does not mean that your medical [...] constipation) (DME) pen needle, diabetic [Sure-Fine [place]] .Route lidocaine 5 % ointment 1 applic [...] % (Auto) 63.5, Lymph % (Auto) 24.9, Kane % (Auto) 8.3, Eos % (Auto) 2.9, Baso % (Auto) 0.4, Nucleat RBC Rel Count 0.0, Neut # (Auto) 4.6, Lymph # (Auto) 1.8, Kane # (Auto) 0.6, Eos # (Auto) 0.2, [...] signed by Priscilla Lang MD> 04/30/24 1028 [facility] Work Phone: evaluation noteNo [facility] [place] Other Evaluation note* Diagnosis Onset Date Resolution Status Cholelithiasis acute Emphysematous cystitis acute Pyelonephritis acute Right lateral abdominal pain acute [facility] Work Phone: evaluation noteNo assessment information available [facility] Work Phone: evaluation note* Diagnosis Onset Date Resolution Status [id number] acute Dietary counseling and surveillance acute Hyperlipidemia acute Hypertension acute Insulin long-term use acute Peripheral neuropathy acute Type 2 diabetes mellitus acu te Vitamin B 12 deficiency acut e [facility] Work Phone: evaluation note* Diagnosis Onset Date Resolution Status BMI 28.0-28.9,adult acute [id number] acute Dietary counseling and surveillance acute Hyperlipidemia acute Hypertension acute Insulin long-term use acute Peripheral neuropathy acute Type 2 diabetes mellitus acu te Vitamin B 12 deficiency acut e [facility] Work Phone: evaluation note* Diagnosis Onset Date Resolution Status BMI 28.0-28.9,adult acute [id number] acute Dietary counseling and surveillance acute Hyperlipidemia acute Hypertension acute Insulin long-term use acute Peripheral neuropathy acute Type 2 diabetes mellitus acu te Vitamin B 12 deficiency acut e Dizziness acute Hypertension acute Primary insomnia acute Type 2 diabetes mellitus acu te [facility] Work Phone: evaluation note* Diagnosis Onset Date Resolution Status BMI 28.0-28.9,adult acute [id number] acute Dietary counseling and surveillance acute Hyperlipidemia acute Hypertension acute Insulin long-term use acute Peripheral neuropathy acute Type 2 diabetes mellitus acu te Vitamin B 12 deficiency acut e Dizziness acute Hypertension acute Primary insomnia acute Type 2 diabetes mellitus acu te PAD (peripheral artery disease) acute [facility] Work Phone: Evaluation note* Diagnosis Onset Date Resolution Status PAD (peripheral artery disease) acute BMI 28.0-28.9,adult acute [id number] acute Dietary counseling and surveillance acute Hyperlipidemia acute Hypertension acute Peripheral neuropathy acute Tachycardia acute Type 2 diabetes mellitus acu te Vitamin B 12 deficiency acut e Atrial flutter with rapid ventricular response acute Chest pain acute Hyperlipidemia acute Hypertension acute New onset atrial flutter acu te Type 2 diabetes mellitus acu te [facility] Work Phone: Evaluation note* Diagnosis Onset Date Resolution Status PAD (peripheral artery disease) acute BMI 28.0-28.9,adult acute [id number] acute Dietary counseling and surveillance acute Hyperlipidemia acute Hypertension acute Peripheral neuropathy acute Tachycardia acute Type 2 diabetes mellitus acu te Vitamin B 12 deficiency acut e Atrial flutter with rapid ventricular response acute Chest pain acute Hyperlipidemia acute Hypertension acute New onset atrial flutter acu te Type 2 diabetes mellitus acu te New onset atrial flutter acu te Mobility impaired noneactive [facility] Work Phone: Evaluation note* Diagnosis Typical atrial flutter (Multi) Nonischemic cardiomyopathy (Multi) Other primary cardiomyopathies Hypertension, unspecified type Hypercholesteremia Pure hypercholesterolemia Smoker Tobacco use disorder Type 2 diabetes mellitus with other specified complication, unspecified whether residential insulin use (Multi) BMI 28.0-28.9,adult documented in this encounter [facility] Work Phone: Evaluation note* Diagnosis Onset Date Resolution Status BMI 28.0-28.9,adult acute [id number] acute Dietary counseling and surveillance acute Hyperlipidemia [...] diabetes mellitus acu te Mobility impaired noneactive [facility] Work Phone: Evaluation note* Diagnosis Onset Date Resolution Status BMI 28.0-28.9,adult acute [id number] acute Dietary counseling and surveillance acute Hyperlipidemia [...] diabetes mellitus with hyperglycemia acute Weakness acute [facility] Work Phone: evaluation note* Diagnosis Onset Date Resolution Status BMI 28.0-28.9,adult acute [id number] acute Dietary counseling and surveillance acute Hyperlipidemia [...] Vitamin B 12 deficiency acut e Weakness [facility] Work Phone: Evaluation note* Diagnosis Onset Date Resolution Status BMI 28.0-28.9,adult acute [id number] acute Dietary counseling and surveillance acute Hyperlipidemia [...] acut e Weakness acute BMI 28.0-28.9,adult acute [id number] acute Dietary counseling and surveillance acute Hyperlipidemia acute Hypertension acute Peripheral neuropathy acute Type 2 diabetes mellitus acu te Vitamin B 12 deficiency acut e [facility] Work Phone: evaluation note* Diagnosis Onset Date Resolution Status BMI 28.0-28.9,adult acute [id number] acute Dietary counseling and surveillance acute Hyperlipidemia [...] thyroid blood test acute BMI 28.0-28.9,adult acute [id number] acute Dietary counseling and surveillance acute Hyperlipidemia acute Hypertension acute Peripheral neuropathy acute Type 2 diabetes mellitus acu te Vitamin B 12 deficiency acut e [facility] Work Phone: evaluation note* Diagnosis Onset Date Resolution Status BMI 28.0-28.9,adult acute [id number] acute Dietary counseling and surveillance acute Hyperlipidemia [...] thyroid blood test acute BMI 28.0-28.9,adult acute [id number] acute Dietary counseling and surveillance acute Hyperlipidemia acute Hypertension acute Peripheral neuropathy acute Type 2 diabetes mellitus acu te Vitamin B 12 deficiency acut e Hospital discharge follow-up acute Hypomagnesemia acute [facility] Work Phone: Evaluation note* Diagnosis Onset Date Resolution Status Ambulatory dysfunction acute Hypomagnesemia acute Hypothyroid acute Type 2 diabetes mellitus with hyperglycemia acute Vitamin B 12 deficiency acut e Weakness acute Abnormal thyroid blood test acute BMI 28.0-28.9,adult acute [id number] acute Dietary counseling and surveillance acute Hyperlipidemia acute Hypertension acute Peripheral neuropathy acute Type 2 diabetes mellitus acu te Vitamin B 12 deficiency acut e Hospital discharge follow-up acute Hypomagnesemia acute [facility] Work Phone: Evaluation note* Diagnosis Ulcer of right foot, limited to breakdown of skin (CMS/HCC)- Primary Blister of right foot, subsequent encounter 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) documented in this encounter [facility] HealthcareEvaluation note* Diagnosis Onset Date Resolution Status Ambulatory dysfunction acute Hypomagnesemia acute Hypothyroid acute Type 2 diabetes mellitus with hyperglycemia acute Vitamin B 12 deficiency acut e Weakness acute Abnormal thyroid blood test acute BMI 28.0-28.9,adult acute [id number] acute Dietary counseling and surveillance acute Hyperlipidemia acute Hypertension acute Peripheral neuropathy acute Type 2 diabetes mellitus acu te Vitamin B 12 deficiency acut e Hospital discharge follow-up acute Hypomagnesemia acute Weakness acute [facility] Work Phone: Evaluation note* Diagnosis Leg [...] layer exposed (CMS/HCC) documented in this encounter [facility] HealthcareEvaluation note* Diagnosis Leg pain, bilateral- [...] syndrome B12 deficiency documented in this encounter [facility] HealthcareEvaluation note* Diagnosis Hypertension, unspecified type Typical atrial flutter (Multi) documented in this encounter [facility] Work Phone: Evaluation note* Diagnosis Lumbosacral radiculopathy at S1- Primary Neurogenic pain Cervical paraspinal muscle spasm Spasm of muscle Lumbar paraspinal muscle spasm Other symptoms referable to back Carpal tunnel syndrome, bilateral Carpal tunnel syndrome B12 deficiency documented in this encounter [facility] HealthcareEvaluation note* Diagnosis Nonischemic cardiomyopathy (Multi)- Primary Other primary cardiomyopathies Typical atrial flutter (Multi) Hypercholesteremia Pure hypercholesterolemia Primary hypertension Unspecified essential hypertension Current smoker BMI 28.0-28.9,adult High risk medication use documented in this encounter [facility] Work Phone: Evaluation note* Diagnosis Leg pain, [...] blood cell count documented in this encounter [facility] HealthcareEvaluation note* Diagnosis Leg pain, bilateral- [...] smoker documented in this encounter [facility] Work Phone: Evaluation note* Diagnosis Carpal tunnel syndrome, bilateral- Primary Carpal tunnel syndrome documented in this encounter [facility] HealthcareEvaluation note* Diagnosis Ulcer of right foot, limited to breakdown of skin (CMS/HCC)- Primary Cellulitis of right foot documented in this encounter [facility] HealthcareEvaluation note* Diagnosis Ulcer of right foot, limited to breakdown of skin (CMS/HCC)- Primary Blister of right foot, initial encounter 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) documented in this encounter [facility] HealthcareEvaluation note* Diagnosis Typical atrial flutter (Multi)- Primary Nonischemic cardiomyopathy (Multi) Other primary cardiomyopathies Hypercholesteremia Pure hypercholesterolemia Hypertension, unspecified type BMI 32.0-32.9,adult Current smoker documented in this encounter [facility] Work Phone: Evaluation note* Diagnosis Leg pain, [...] 30-39.9) Current smoker documented in this encounter [facility] Work Phone: History and physical note Author Arleen Stephen [facility] December 09, 2021 11:38am Note Date/Time December 09, 2021 11 :38am [facility] [address] [place] [address] Hospitalist H&P Signed Patient: Taye Gay MR#: [id number] : 1955 Acct:[id number] Age/Sex: 66 / F Adm Date: 2 Loc: ER Room: Type: [facility] ER Attending Dr: Copies to: NON STAFF MD Tray Kay DO~ HPI DATE OF EXAMINATION: 12/09/21 CHIEF [...] 02/09/21] insulin lispro 100 unit/mL [facility] Insulin lispro) 1 [...] % (Auto) 9.6 % (.) 12/09/21 08:50 Kane % (Auto) 9.1 % (.) 12/09/21 08:50 Eos % (Auto) 1.1 % (.) 12/09/21 08:50 Baso % (Auto) 0.4 % (.) 12/09/21 08:50 Neut # (Auto) 10.3 x10E3/uL (1.8-7.7) H 12/09/21 08:50 Lymph # (Auto) 1.2 x10E3/uL (1.00-4.8) 12/09/21 08:50 Kane # (Auto) 1.2 x10E3/uL (0.0-0.8) H 12/09/21 [...] pH 5.5 (5.0-9.0) 12/09/21 08:35 Ur Specific [place] 1.030 (1.001-1.030) 12/09/21 08:35 Urine Protein Negative [...] By: <Electronically signed by Arleen Stephen MD> 12/09/211137 [facility] Work Phone: History and physical note Author Jluis Campos [facility] November 10, 2023 6:20am Note Date/Time November 10, 2023 6:11 am [facility] [address] [place] [address] Hospitalist H&P Signed Patient: Taye Gay MR#: [id number] : 1955 Acct:[id number] Age/Sex: 67 / F Adm Date: 4 Loc: Room: [address] [place] [address] Type: ADM IN Attending Dr: Jluis Campos DO Copies to: DO Jluis Daniels DO~ HPI DATE OF EXAMINATION: 11/10/23 CHIEF [...] History Father Heart disease [facility]: Diagnosed with St[facility] Cancer throat [...] Confirmed 11/09/23] pen needle, diabetic [Sure-Fine [place]] 06/12/23 [History Confirmed 11/09/23] omeprazole 20 mg [...] weaknesses were noted, patient unable to ambulate. Kjzj-mf-fqzy test was normal. No tremors or ataxia with fwtgyc-ez-tdmw movements. Neuro: AOx3, CN II-VII intact. Moves [...] % (Auto) 26.0 % (.) 11/10/23 03:41 Kane % (Auto) 8.2 % (.) 11/10/23 03:41 Eos % (Auto) 3.7 % (.) 11/10/23 03:41 Baso % (Auto) 0.9 % (.) 11/10/23 03:41 Nucleat RBC Rel Count 0.1 /100 WBC (0-0.5) 11/10/23 03:41 Neut # (Auto) 5.2 x10E3/uL (1.8-7.7) 11/10/23 03:41 Lymph # (Auto) 2.2 x10E3/uL (1.00-4.8) 11/10/23 03:41 Kane # (Auto) 0.7 x10E3/uL (0.0-0.8) 11/10/23 03:41 [...] pH 6.0 (5.0-9.0) 11/10/23 05:02 Ur Specific [place] 1.007 (1.001-1.030) 11/10/23 05:02 Urine Protein Negative [...] signed by Jluis Campos DO> 11/10/23 0620 [facility] Work Phone: History and physical note Author Jori Hearn [facility] Note Date/Time April 29, 2024 6: 39am [facility] [address] [place] [address] Hospitalist H&P Signed Patient: Taye Gay MR#: [id number] : 1955 Acct:[id number] Age/Sex: 68 / F Adm Date: 4 Loc: 3T Room: [address] [place] [address] Type: ADM IN Attending Dr: Jori Hearn [...] of dementia, possible Alzheimer's dementia -continue home [id number] mg twice daily and donepezil 20 mg [...] (Stool Softener) 100 mg PO DAILY PRN [id number]/14/24 [History Confirmed 04/28/24] multivitamin 1 tab PO DAILY 06/12/23 [History Confirmed 04/28/24] pen needle, diabetic [Sure-Fine [place]] 06/12/23 [History Confirmed 04/28/24] metformin 500 mg [...] % (Auto) 24.6 % (.) 04/28/24 19:54 Kane % (Auto) 7.6 % (.) 04/28/24 19:54 Eos % (Auto) 2.7 % (.) 04/28/24 19:54 Baso % (Auto) 1.1 % (.) 04/28/24 19:54 Nucleat RBC Rel Count 0.2 /100 WBC (0-0.5) 04/28/24 19:54 Neut # (Auto) 6.5 x10E3/uL (1.8-7.7) 04/28/24 19:54 Lymph # (Auto) 2.5 x10E3/uL (1.00-4.8) 04/28/24 19:54 Kane # (Auto) 0.8 x10E3/uL (0.0-0.8) 04/28/24 19:54 [...] pH 5.5 (5.0-9.0) 04/28/24 22:02 Ur Specific [place] 1.038 (1.001-1.030) H 04/28/24 22:02 Urine Protein [...] signed by Jori Hearn DO> 04/29/24 0639 [facility] Work Phone: History and physical note Author Manjit Gleason [facility] Note Date/Time September 10, 2024 12:41 pm [facility] [address] [place] [address] Gastroenterology H&P Signed Patient: Taye Gay MR#: [id number] : 1955 Acct:[id number] Age/Sex: 68 / F Adm Date: 5 Loc: Room: Type: [facility] Attending Dr: Manjit Gleason MD Copies [...] <Electronically signed by Manjit Gleason MD> 09/10/[address] [place] [address] Ctr Work Phone: Hisrkth general Narrative - Reported* Type Description Date Medical History HTN Medical History Diabetes Medical History Obesity Medical History HLP Medical History tonsillectomy Medical History hysterectomy Medical History Cataracts removed Bilateral Medical History Upper eye lift Surgical History tonsillectomy Surgical History hysterectomy Surgical History cataracts, bilaterally Surgical History eye lid surgery Surgical History removed cervix 12/2018 Spare Backup Other Hisftkx general Narrative - Reported* Type Description Date Medical History HTN Medical History Diabetes Medical History Obesity Medical History HLP Medical History tonsillectomy Medical History hysterectomy Medical History Cataracts removed Bilateral Medical History Upper eye lift Surgical History tonsillectomy Surgical History hysterectomy Surgical History cataracts, bilaterally Surgical History eye lid surgery Surgical History removed cervix 12/2018 Hospitalization History See Above Spare Backup Other Hisoftg general Narrative - Reported* Type Description Date Medical History HTN Medical History Diabetes Medical History Obesity Medical History HLP Medical History tonsillectomy Medical History hysterectomy Medical History Cataracts removed Bilateral Medical History Upper eye lift Surgical History tonsillectomy Surgical History partial hysterectomy Surgical History cataracts, bilaterally Surgical History eye lid surgery--bilateral Surgical History removed cervix 12/2018 Hospitalization History See Above Spare Backup Other Hismuce general Narrative - Reported* Type Description Date [...] History UTI and gallbladder jami yusef 11/2021 Spare Backup Other Hisccgw general Narrative - Reported* Type Description Date [...] History UTI and gallbladder jami yusef 11/2021 Spare Backup [facility]: [facility]: Hospital Discharge instructionsAmbulatory Orders* Initiate [...] - Care to be managed by PCP [facility] Work Phone: Hospital Discharge instructions Additional Instructions I may not have addressed or treated all of your medical illnesses or the abnormal blood work or imaging studies during this hospitalization. Please ask your primary care provider to obtain [facility] records entirely to follow up on [...] having drug drug interaction. Discharging you from [facility] does not mean that your medical care ends here and now. You may still need additional monitoring, work up, investigation, and treatment plan to be handled from this point on by out patient providers including your primary care provider and specialists. For any medication question, please contact your retail pharmacist or your primary care provider. Thank you.[facility] Work Phone: Hospital Discharge instructionsAmbulatory Orders* Referral to Pain Management Location: None [facility] Work Phone: Progress note Author Arleen Stephen [facility] December 10, 2021 11:26am Note Date/Time December 10, 2021 11 :26am [facility] [address] [place] [address] Hospitalist Progress Note Signed Patient: Taye Gay MR#: [id number] : 1955 Acct:[id number] Age/Sex: 66 / F Adm Date: 2 Loc: 3T Room: [address] [place] [address] Type: ADM IN Attending Dr: Arleen Stephen [...] 1,000 Ml IV 12/09/22 11:29 75 mls/hr .[id number] PARMJIT Administration Ceftriaxone Sodium 1 gm in [...] signed by Arleen Stephen MD> 12/10/21 1126 [facility] Work Phone: Progress note Author Arleen Stephen [facility] December 11, 2021 1:33pm Note Date/Time December 11, 2021 1: 30pm [facility] [address] [place] [address] Hospitalist Progress Note Signed Patient: Taye Gay MR#: [id number] : 1955 Acct:[id number] Age/Sex: 66 / F Adm Date: 2 Loc: Room: [address] [place] [address] Type: ADM INOo Attending Dr: Arleen Stephen [...] signed by Arleen Stephen MD> 12/11/21 1333 [facility] Work Phone: Progress note Author Walter [place] [facility] December 12, 2021 8:07am Note Date/Time December 12, 2021 8: 07am [facility] [address] [place] [address] General Surgery Progress Note Signed Patient: Taye Gay MR#: [id number] : 1955 Acct:[id number] Age/Sex: 66 / F Adm Date: 2 Loc: Room: [address] [place] [address] Type: ADM INOo Attending Dr: Arleen Stephen [...] 12/09/21] insulin lispro 100 unit/mL [facility] Insulin lispro) 1 sliding scale [...] 81 Mg Tablet.Dr) 81 mg PO DAILY [facility] Stop: 12/10/22 08:59 Last Admin: 12/11/21 08:00 Dose: 81 mg Atorvastatin Calcium (Atorvastatin 10 Mg Tablet) 10 mg PO DAILY [facility] Stop: 12/10/22 08:59 Last Admin: 12/11/21 [...] 50 mls @ 100 mls/hr IV Q24H [facility] Last Infusion: 12/11/21 10:15 Dose: Infused Sodium Chloride (0.9% Sodium Chloride 1,000 Ml) 1,000 mls @ 100 mls/hr IV .[id number] Stop: 12/12/22 00:00 Last Admin: 12/12/21 00:10 Dose: 100 mls/hr Insulin Aspart (Insulin Aspart 300 Units/3 Ml Insuln.Pen) 0 units SUBCUT TID.WM.HS [facility]; Protocol Stop: 12/09/22 11:59 Last Admin: 12/11/21 21:21 Dose: 3 units Nortriptyline HCl (Nortriptyline 25 Mg Capsule) 50 mg PO BID [facility] Stop: 12/09/22 20:59 Last Admin: 12/11/21 21:20 Dose: 50 mg Omeprazole (Omeprazole 20 Mg Capsule.Dr) 20 mg PO DAILY [facility] Stop: 12/10/22 08:59 Last Admin: 12/11/21 08:00 Dose: 20 mg Ondansetron HCl (Ondansetron 4 Mg/2 Ml Vial) 4 mg IV-PUSH Q8H PRN PRN Reason: Nausea And Vomiting Stop: 12/09/22 11:18 Pioglitazone HCl (Pioglitazone 15 Mg Tablet) 15 mg PO DAILY [facility] Stop: 12/10/22 08:59 Last Admin: 12/11/21 [...] 15 Mg Capsule) 30 mg PO QHS [facility] Stop: 12/09/22 21:59 Last Admin: 12/11/21 [...] % (Auto) 66.8, Lymph % (Auto) 21.0, Kane % (Auto) 9.2, Eos % (Auto) 2.6, Baso % (Auto) 0.4, Neut # (Auto) 4.1, Lymph # (Auto) 1.3, Kane # (Auto) 0.6, Eos # (Auto) 0.2, [...] signed by DO Walter [place]> 12/12/21 0807 [facility] Work Phone: Progress note Author Arleen Stephen [facility] December 12, 2021 1:20pm Note Date/Time December 12, 2021 1: 20pm [facility] [address] [place] [address] Hospitalist Progress Note Signed Patient: Taye Gay MR#: [id number] : 1955 Acct:[id number] Age/Sex: 66 / F Adm Date: 2 Loc: 3T Room: [address] [place] [address] Type: ADM INOo Attending Dr: Arleen Stephen [...] signed by Arleen Stephen MD> 12/12/21 1320 [facility] Work Phone: Progress note Author Teresa Strong [facility] December 12, 2021 8:43pm Note Date/Time December 12, 2021 2: 49pm [facility] [address] [place] [address] Urology Progress Note Signed Patient: Taye Gay MR#: [id number] : 1955 Acct:[id number] Age/Sex: 66 / F Adm Date: 2 Loc: Room: [address] [place] [address] Type: ADM INOo Attending Dr: Arleen Stephen [...] % (Auto) 72.7, Lymph % (Auto) 16.1, Kane % (Auto) 8.8, Eos % (Auto) 2.1, Baso % (Auto) 0.3, Neut # (Auto) 5.3, Lymph # (Auto) 1.2, Kane # (Auto) 0.6, Eos# (Auto) 0.2, Baso [...] % (Auto) 66.8, Lymph % (Auto) 21.0, Kane % (Auto) 9.2, Eos % (Auto) 2.6, Baso % (Auto) 0.4, Neut # (Auto) 4.1, Lymph # (Auto) 1.3, Kane # (Auto) 0.6, Eos # (Auto) 0.2, [...] <Electronically signed by Teresa Strong MD> 12/12/21 2567 [facility] Work Phone: Progress note Author Walter [place] [facility] December 13, 2021 8:52am Note Date/Time December 13, 2021 8: 52am [facility] [address] [place] [address] General Surgery Progress Note Signed Patient: Taye Gay MR#: [id number] : 1955 Acct:[id number] Age/Sex: 66 / F Adm Date: 2 Loc: Room: [address] [place] [address] Type: ADM INOo Attending Dr: Wilmer Vance [...] 12/09/21] insulin lispro 100 unit/mL subcutaneous pen ([facility] SoloStar U-100 Insulin lispro) 1 sliding scale [...] 81 Mg Tablet.) 81 mg PO DAILY [facility] Stop: 12/10/22 08:59 Last Admin: 12/12/21 10:33 Dose: Not Given Atorvastatin Calcium (Atorvastatin 10 Mg Tablet) 10 mg PO DAILY [facility] Stop: 12/10/22 08:59 Last Admin: 12/12/21 10:33 Dose: Not Given Cyanocobalamin (Cyanocobalamin 1,000 Mcg Tablet) 1,000 mcg PO DAILY [facility] Stop: 12/13/22 08:59 Dextrose (Dextrose 50% In Water 25 Gm/50 Ml Syringe) 0 gm IV-PUSH PRN PRN PRN Reason: Hypoglycemia Stop: 12/09/22 11:18 Docusate Sodium (Docusate 100 Mg Capsule) 100 mg PO TID [facility] Stop: 12/12/22 21:59 Last Admin: 12/12/21 22:26 Dose: 100 mg Enoxaparin Sodium (Enoxaparin 40 Mg/0.4 Ml Syringe) 40 mg SUBCUT DAILY@10 [facility] Stop: 12/10/22 09:59 Last Admin: 12/12/21 [...] 50 mls @ 100 mls/hr IV Q24H [facility] Last Admin: 12/12/21 11:57 Dose: 100 mls/hr Sodium Chloride (0.9% Sodium Chloride 1,000 Ml) 1,000 mls @ 100 mls/hr IV .[id number] Stop: 12/12/22 00:00 Last Infusion: 12/13/21 03:35 Dose: Infused Lactated Ringer's (Lactated Ringers) 1,000 mls @ 20 mls/hr IV .Q24H [facility] Stop: 12/13/21 11:13 Last Infusion: 12/13/21 03:31 Dose: Infused Insulin Aspart (Insulin Aspart 300 Units/3 Ml Insuln.Pen) 0 units SUBCUT TID.WM.[facility]; Protocol Stop: 12/09/22 11:59 Last Admin: 12/13/21 08:07 Dose: 4 units Nortriptyline HCl (Nortriptyline 25 Mg Capsule) 50 mg PO BID [facility] Stop: 12/09/22 20:59 Last Admin: 12/12/21 22:27 Dose: 50 mg Omeprazole (Omeprazole 20 Mg Capsule.Dr) 20 mg PO DAILY [facility] Stop: 12/10/22 08:59 Last Admin: 12/12/21 10:33 Dose: Not Given Ondansetron HCl (Ondansetron 4 Mg/2 Ml Vial) 4 mg IV-PUSH Q6H PRN PRN Reason: Nausea And Vomiting Stop: 12/12/22 18:19 Pioglitazone HCl (Pioglitazone 15 Mg Tablet) 15 mg PO DAILY [facility] Stop: 12/10/22 08:59 Last Admin: 12/12/21 [...] 15 Mg Capsule) 30 mg PO QHS [facility] Stop: 12/09/22 21:59 Last Admin: 12/12/21 [...] % (Auto) 90.4, Lymph % (Auto) 7.7, Kane % (Auto) 1.8, Eos % (Auto) 0.0, Baso % (Auto) 0.1, Neut # (Auto) 8.5 H, Lymph # (Auto) 0.7 L, Kane # (Auto) 0.2, Eos # (Auto) 0.0, [...] % (Auto) 72.7, Lymph % (Auto) 16.1, Kane % (Auto) 8.8, Eos % (Auto) 2.1, Baso % (Auto) 0.3, Neut # (Auto) 5.3, Lymph # (Auto) 1.2, Kane # (Auto) 0.6, Eos# (Auto) 0.2, Baso [...] % (Auto) 66.8, Lymph % (Auto) 21.0, Kane % (Auto) 9.2, Eos % (Auto) 2.6, Baso % (Auto) 0.4, Neut # (Auto) 4.1, Lymph # (Auto) 1.3, Kane # (Auto) 0.6, Eos # (Auto) 0.2, [...] signed by DO Walter [place]> 12/13/21 0852 [facility] Work Phone: Progress note Author Priscilla Lang [facility] Note Date/Time April 29, 2024 11 :02am [facility] [address] [place] [address] Hospitalist Progress Note Signed Patient: Taye Gay MR#: [id number] : 1955 Acct:[id number] Age/Sex: 68 / F Adm Date: 4 Loc: 3T Room: [address] [place] [address] Type: ADM IN Attending Dr: Priscilla Lang [...] of dementia, possible Alzheimer's dementia -continue home [id number] mg twice daily and donepezil 20 mg [...] signed by Priscilla Lang MD> 04/29/24 1102 [facility] Work Phone: Progress note Author Lit Clark [facility] Note Date/Time April 30, 2024 12 :30pm [facility] [address] [place] [address] Neurology Progress Note Signed with Jamila Patient: Taye Gay MR#: [id number] : 1955 Acct:[id number] Age/Sex: 68 / F Adm Date: 4 Loc: 3T Room: [address] [place] [address] Type: ADM IN Attending Dr: Priscilla Lang MD Copies to: ~ ADDENDUM1 Patient has refused to remove her nail cymro for MRI. 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 or of [...] signed by Lit Clark DO> 04/30/24 0708 [facility] Work Phone: [employer] for referral (narrative)No reason for referral information availableTr[facility]ull [facility] Work Phone: Revrdd for visit Narrative* Other Medical (Routine) - Closed Specialty Diagnoses / Procedures Referred By Tahmina thurston Referred To Contact Neurology Diagnoses Numbness Leg pain, left Leg pain, right Bilateral leg weakness Procedures EMG AND NERVE CONDUCTION STUDY Oz Kincaid MD [address] [place] [id number] Phone: tel: fax: Oz Kincaid MD [address] [place] [address] Phone: tel: fax: Referral ID Status Reason Start Date Expiration Date V isits Requested Visits Authorized [id number] Closed Perform Procedure 10/06/2024 04/04/2025 1 1 [facility] Other Medical (Routine) - Closed Specialty Diagnoses / Procedures Referred By Tahmina thurston Referred To Contact Neurology Diagnoses Arm weakness Numbness Arm pain, right Arm pain, left Procedures EMG AND NERVE CONDUCTION STUDY Oz Kincaid MD [address] [place] [address] Phone: tel: fax: Oz Kincaid MD [address] [place] [address] Phone: tel: fax: Referral ID Status Reason Start Date Expiration Date V isits Requested Visits Authorized [id number] Closed Perform Procedure 11/16/2024 05/15/2025 1 1 [facility] Summary Purpose Family History No Family [...] December 4:05pm Procedure Findings Note HNO ID: [id number] Author: Phi Joaquin Service: Gynecology Oncology Author Type: Physician Type: Brief Op Note Filed: 01/17/2019 7:15 PM Note Text: BRIEF OPERATIVE / PROCEDURE NOTE LOG ID: [id number] SURGERY/PROCEDURE DATE: 01/01/2019 INCISION/PROCEDURE START TIME: 8:11 AM INCISION CLOSE/PROCEDURE END TIME: 8:34 AM SURGEON(S)/PROCEDURALIST(S) AND AGRONOMY INTERNSHIP(S): Surgeon(s) and Role: * Theo Joaquin - [...] 01, 2019 TIME: 8:39 AM PAGER/CONTACT #: [id number] Chief Complaint and Reason for Visit Chief Complaint right side pain Low R abd pain Reason for Visit Cholelithiasis Emphysematous cystitis Pyelonephritis Right lateral abdominal pain Chief Complaint g02.97 f17.210 Chief Complaint g02.97 f17.210 Z12.39 Chief Complaint E11.4 Z78.0 Chief Complaint 3 month follow up Reason for Visit BMI 28.0-28.9,adult [id number] Dietary counseling and surveillance Hyperlipidemia Hypertension Insulin long-term use Peripheral neuropathy Type 2 diabetes mellitus Vitamin B 12 deficiency Chief Complaint 3 month follow up PVD FOLLOW UP Reason for Visit BMI 28.0-28.9,adult [id number] Dietary counseling and surveillance Hyperlipidemia Hypertension Insulin long-term use Peripheral neuropathy Type 2 diabetes mellitus Vitamin B 12 deficiency Dizziness Hypertension Primary insomnia Type 2 diabetes mellitus Chief Complaint 3 month follow up PVD FOLLOW UP g02.97 f17.210 Reason for Visit BMI 28.0-28.9,adult [id number] Dietary counseling and surveillance Hyperlipidemia Hypertension Insulin long-term use Peripheral neuropathy Type 2 diabetes mellitus Vitamin B 12 deficiency Dizziness Hypertension Primary insomnia Type 2 diabetes mellitus PAD (peripheral artery disease) Chief Complaint 3 month follow up PVD FOLLOW UP g02.97 f17.210 E11.9 E78.5 E53.8 Reason for Visit BMI 28.0-28.9,adult [id number] Dietary counseling and surveillance Hyperlipidemia Hypertension Insulin long-term use Peripheral neuropathy Type 2 diabetes mellitus Vitamin B 12 deficiency Dizziness Hypertension Primary insomnia Type 2 diabetes mellitus PAD (peripheral artery disease) Chief Complaint PVD FOLLOW UP g02.97 f17.210 E11.9 E78.5 E53.8 Amb Documentation brent on phone chest pains chest pains Reason for Visit PAD (peripheral evert ry disease) BMI 28.0-28.9,adult [id number] Dietary counseling and surveillance Hyperlipidemia Hypertension Peripheral [...] PAD (peripheral evert ry disease) BMI 28.0-28.9,adult [id number] Dietary counseling and surveillance Hyperlipidemia Hypertension Peripheral [...] i70.91 d51.3 Reason for Visit BMI 28.0-28.9,adult [id number] Dietary counseling and surveillance Hyperlipidemia Hypertension Peripheral [...] d51.3 aflutter Reason for Visit BMI 28.0-28.9,adult [id number] Dietary counseling and surveillance Hyperlipidemia Hypertension Peripheral [...] Falls, Shaky Reason for Visit BMI 28.0-28.9,adult [id number] Dietary counseling and surveillance Hyperlipidemia Hypertension Peripheral [...] Falls, Shaky Reason for Visit BMI 28.0-28.9,adult [id number] Dietary counseling and surveillance Hyperlipidemia Hypertension Peripheral [...] on phone Reason for Visit BMI 28.0-28.9,adult [id number] Dietary counseling and surveillance Hyperlipidemia Hypertension Peripheral [...] Vitamin B 12 deficiency Weakness BMI 28.0-28.9,adult [id number] Dietary counseling and surveillance Hyperlipidemia Hypertension Peripheral neuropathy Type 2 diabetes mellitus Vitamin B 12 deficiency Chief Complaint E11.9 E78.5 E53.8 Amb Documentation brent on phone chest pains chest pains Amb Documentation Hospital follow up g72.9 g62.9 r79.89 g60.9 z11.3 e53.1 i70.91 d51.3 aflutter Multiple Falls, Shaky Amb Documentation brent on phone typical a flutter Reason for Visit BMI 28.0-28.9,adult [id number] Dietary counseling and surveillance Hyperlipidemia Hypertension Peripheral [...] Weakness Abnormal thyroid blood test BMI 28.0-28.9,adult [id number] Dietary counseling and surveillance Hyperlipidemia Hypertension Peripheral neuropathy Type 2 diabetes mellitus Vitamin B 12 deficiency Chief Complaint E11.9 E78.5 E53.8 Amb Documentation brent on phone chest pains chest pains Amb Documentation Hospital follow up g72.9 g62.9 r79.89 g60.9 z11.3 e53.1 i70.91 d51.3 aflutter Multiple Falls, Shaky Amb Documentation brent on phone typical a flutter typical a flutter [facility] follow up Reason for Visit BMI 28.0-28.9,adult [id number] Dietary counseling and surveillance Hyperlipidemia Hypertension Peripheral [...] Weakness Abnormal thyroid blood test BMI 28.0-28.9,adult [id number] Dietary counseling and surveillance Hyperlipidemia Hypertension Peripheral neuropathy Type 2 diabetes mellitus Vitamin B 12 deficiency Hospital discharge follow-up Hypomagnesemia Chief Complaint E11.9 E78.5 E53.8 Amb Documentation brent on phone chest pains chest pains Amb Documentation Hospital follow up g72.9 g62.9 r79.89 g60.9 z11.3 e53.1 i70.91 d51.3 aflutter Multiple Falls, Shaky Amb Documentation brent on phone typical a flutter typical a flutter [facility] follow up G62.9 G60.9 R79.89 Z11.3 E53.1 I70.31 D51.3 Reason for Visit BMI 28.0-28.9,adult [id number] Dietary counseling and surveillance Hyperlipidemia Hypertension Peripheral [...] Weakness Abnormal thyroid blood test BMI 28.0-28.9,adult [id number] Dietary counseling and surveillance Hyperlipidemia Hypertension Peripheral neuropathy Type 2 diabetes mellitus Vitamin B 12 deficiency Hospital discharge follow-up Hypomagnesemia Chief Complaint E11.9 E78.5 E53.8 Amb Documentation brent on phone chest pains chest pains Amb Documentation Hospital follow up g72.9 g62.9 r79.89 g60.9 z11.3 e53.1 i70.91 d51.3 aflutter Multiple Falls, Shaky Amb Documentation brent on phone typical a flutter typical a flutter [facility] follow up G62.9 G60.9 R79.89 Z11.3 E53.1 I70.31 D51.3 g62.9 r79.89 g60.9 z11.3 e53.1 d51.3 Reason for Visit BMI 28.0-28.9,adult [id number] Dietary counseling and surveillance Hyperlipidemia Hypertension Peripheral [...] Weakness Abnormal thyroid blood test BMI 28.0-28.9,adult [id number] Dietary counseling and surveillance Hyperlipidemia Hypertension Peripheral neuropathy Type 2 diabetes mellitus Vitamin B 12 deficiency Hospital discharge follow-up Hypomagnesemia Chief Complaint g72.9 g62.9 r79.89 g 60.9 z11.3 e53.1 i70.91 d51.3 aflutter Multiple Falls, Shaky Amb Documentation brent on phone typical a flutter typical a flutter [facility] follow up G62.9 G60.9 R79.89 Z11.3 E53.1 I70.31 D51.3 g62.9 r79.89 g60.9 z11.3 e53.1 d51.3 M54.17 Reason for Visit Ambulatory dysfuncti on Hypomagnesemia Hypothyroid Type 2 diabetes mellitus with hyperglycemia Vitamin B 12 deficiency Weakness Abnormal thyroid blood test BMI 28.0-28.9,adult [id number] Dietary counseling and surveillance Hyperlipidemia Hypertension Peripheral neuropathy Type 2 diabetes mellitus Vitamin B 12 deficiency Hospital discharge follow-up Hypomagnesemia Chief Complaint g72.9 g62.9 r79.89 g 60.9 z11.3 e53.1 i70.91 d51.3 aflutter Multiple Falls, Shaky Amb Documentation brent on phone typical a flutter typical a flutter [facility] follow up G62.9 G60.9 R79.89 Z11.3 E53.1 I70.31 D51.3 g62.9 r79.89 g60.9 z11.3 e53.1 d51.3 M54.17 R60.0 M79.671 r/o dvt Reason for Visit Ambulatory dysfuncti on Hypomagnesemia Hypothyroid Type 2 diabetes mellitus with hyperglycemia Vitamin B 12 deficiency Weakness Abnormal thyroid blood test BMI 28.0-28.9,adult [id number] Dietary counseling and surveillance Hyperlipidemia Hypertension Peripheral neuropathy Type 2 diabetes mellitus Vitamin B 12 deficiency Hospital discharge follow-up Hypomagnesemia Chief Complaint g72.9 g62.9 r79.89 g 60.9 z11.3 e53.1 i70.91 d51.3 aflutter Multiple Falls, Shaky Amb Documentation brent on phone typical a flutter typical a flutter [facility] follow up G62.9 G60.9 R79.89 Z11.3 E53.1 I70.31 D51.3 g62.9 r79.89 g60.9 z11.3 e53.1 d51.3 M54.17 R60.0 M79.671 r/o dvt L97.511 L03.115 lumbosacral radiculopathy at s1 Reason for Visit Ambulatory dysfuncti on Hypomagnesemia Hypothyroid Type 2 diabetes mellitus with hyperglycemia Vitamin B 12 deficiency Weakness Abnormal thyroid blood test BMI 28.0-28.9,adult [id number] Dietary counseling and surveillance Hyperlipidemia Hypertension Peripheral neuropathy Type 2 diabetes mellitus Vitamin B 12 deficiency Hospital discharge follow-up Hypomagnesemia Chief Complaint aflutter Multiple Falls, Shaky Amb Documentation brent on phone typical a flutter typical a flutter [facility] follow up G62.9 G60.9 R79.89 Z11.3 E53.1 I70.31 D51.3 g62.9 r79.89 g60.9 z11.3 e53.1 d51.3 M54.17 R60.0 M79.671 r/o dvt L97.511 L03.115 lumbosacral radiculopathy at s1 8 Month F/U Reason for Visit Ambulatory dysfuncti on Hypomagnesemia Hypothyroid Type 2 diabetes mellitus with hyperglycemia Vitamin B 12 deficiency Weakness Abnormal thyroid blood test BMI 28.0-28.9,adult [id number] Dietary counseling and surveillance Hyperlipidemia Hypertension Peripheral [...] 11:14am Dietary counseling and surveillance [facility] 2023 11:14am Hyperlipidemia April 28, 2024 [...] 11:14am Dietary counseling and surveillance [facility] 2023 11:14am Hyperlipidemia April 28, 2024 11:14am Hypertension April 28, 2024 11:14am Peripheral neuropathy April 28 11:14am Type 2 diabetes mellitus April 28, 2024 11:14am Vitamin B 12 deficiency April 28, 024 11:14am Atrial fibrillation April 28, 2024 10:38pm Generalized weakness April 28, 2024 10:38pm Insulin dependent diabetes mellitus [facility] 2023 10:38pm TIA (transient ischemic attack) April 28, 2024 10:38pm Chief Complaint Admit Date Screening, Dysphagia February 14, 2024 12:30pm NEW elevated WBC April 14, 2024 9:30am irregular heart beat, dizziness, weaknes s April 27, 2024 2:18pm Follow Up 2 Weeks April 28, 2024 9:53am brent on phone April 28, 2024 11:14am Weakness April 28, 2024 10:38pm [facility] FOLLOW UP May 07 1:02pm Reason for Visit Admit Date High granulocyte count April 14 9:30am Secondary polycythemia April 14 9:30am High granulocyte count April 28 9:53am Secondary polycythemia April 28 9:53am BMI 32.0-32.9,adult April 28, 2024 11:14am Chronic kidney disease (CKD) stage G2/A2, mildly decreased glomerular filtr April 28, 2024 11:14am Dietary counseling and surveillance [facility] 2023 11:14am Hyperlipidemia April 28, 2024 11:14am Hypertension April 28, 2024 11:14am Peripheral neuropathy April 28 11:14am Type 2 diabetes mellitus April 28, 2024 11:14am Vitamin B 12 deficiency April 28 11:14am Atrial fibrillation April 28, 2024 10:38pm Generalized weakness April 28, 2024 10:38pm Insulin dependent diabetes mellitus [facility] 2023 10:38pm TIA (transient ischemic attack) April 28, 2024 10:38pm Cigarette nicotine dependence April 1:02pm Chief Complaint Admit Date NEW elevated WBC April 14, 2024 9:30am irregular heart beat, dizziness, weaknes s April 27, 2024 2:18pm Follow Up 2 Weeks April 28, 2024 9:53am brent on phone April 28, 2024 11:14am Weakness April 28, 2024 10:38pm [facility] FOLLOW UP May 07 1:02pm G45.9 [...] 11:14am Dietary counseling and surveillance [facility] 2023 11:14am Hyperlipidemia April 28, 2024 11:14am Hypertension April 28, 2024 11:14am Peripheral neuropathy April 28 11:14am Type 2 diabetes mellitus April 28, 2024 11:14am Vitamin B 12 deficiency April 28 11:14am Atrial fibrillation April 28, 2024 10:38pm Generalized weakness Max 31st, 2024 10:38pm Insulin dependent diabetes mellitus Dece [...] 2024 11:14am Weakness April 28, 2024 10:38pm [facility] FOLLOW UP May 07 1:02pm G45.9 [...] 2024 11:14am Weakness April 28, 2024 10:38pm [facility] FOLLOW UP May 07 1:02pm G45.9 [...] 2024 11:14am Weakness April 28, 2024 10:38pm [facility] FOLLOW UP May 07 1:02pm G45.9 [...] 11:14am Dietary counseling and surveillance [facility] 2023 11:14am Hyperlipidemia April 28, 2024 11:14am Hypertension April 28, 2024 11:14am Peripheral neuropathy April 28 11:14am Type 2 diabetes mellitus April 28, 2024 11:14am Vitamin B 12 deficiency April 28 11:14am Atrial fibrillation April 28, 2024 10:38pm Generalized weakness April 28, 2024 10:38pm Insulin dependent diabetes mellitus [facility] 2023 10:38pm TIA (transient ischemic attack) [...] 11:14am Dietary counseling and surveillance [facility] 2023 11:14am Hyperlipidemia April 28, 2024 [...] 1:46pm Screening for lung cancer December 15, 1:46pm Screening for osteoporosis December 15, 2024 [...] 15, 2024 1:46pm Insulin dependent diabetes mellitus [facility] 2024 1:46pm Lumbar spondylosis December 15, 2024 1: 46pm PAD (peripheral artery disease) November 272024 1:46pm Post-menopausal December 15, 2024 1: 46pm Screening for breast cancer December 15, 2024 1:46pm Screening for lung cancer December 15 025 1:46pm Screening for osteoporosis December 15, [...] 2024 1:46pm Screening for lung cancer December 15 025 1:46pm Screening for osteoporosis December 15, [...] 1:23pm Vitamin B 12 deficiency January 05 1:23pm Current every day smoker January 12, 2025 2:19pm Depression January 12, 2025 2:19pm Lesion of spleen January 12, 2025 2:19pm Reason for Referral Specialty Diagnoses / Procedures Referred By Contac t Referred To Contact Diagnoses Typical atrial flutter (Multi) Procedures ECG 12 Lead Jonas Ch MD [address] [place] [address] 2, [place] [address] [place] [address] Referral ID Status Reason Start Date Expiration Date V isits Requested Visits Authorized [id number] Authorized 11/13/2023 11/12/2024 1 1 Specialty Diagnoses / Procedures Referred By Contac t Referred To Contact Diagnoses Typical atrial flutter (Multi) Procedures Complete Pulmonary Function Test (Spirometry/DLCO/Lung Volumes) Jonas Ch MD [address] [place] [address] [address], [address] [address] Referral ID Status Reason Start Date Expiration Date V isits Requested Visits Authorized [id number] Pending Review 11/13/2023 11/12/2024 1 1 Specialty Diagnoses / Procedures Referred By Contac t Referred To Contact Radiology Diagnoses Typical atrial flutter (Multi) Procedures XR chest 2 views Jonas Ch MD [address] [place] [address] 2, [address] [address] Referral ID Status Reason Start Date Expiration Date Visits Requested Visits Authorized [id number] Authorized Perform Procedure 11/13/2023 11/12/2024 1 1 Specialty Diagnoses / Procedures Referred By Contac t Referred To Contact Cardiology Diagnoses Nonischemic cardiomyopathy (Multi) Procedures Follow Up In Cardiology Jonas Ch MD [address] [place] [address] 2, [address] [address] Roland Faust MD [facility] [facility] 2, [place] [address] [place] [address] Referral ID Status Reason Start Date Expiration Date V isits Requested Visits Authorized [id number] Authorized 11/13/2023 11/12/2024 1 1 Specialty Diagnoses / Procedures Referred By Contac t Referred To Contact Cardiology Diagnoses Typical atrial flutter (Multi) Procedures Cardioversion External Jonas Ch MD [facility] [facility] 2, [address] [place] [address] Referral ID Status Reason Start Date Expiration Date V isits Requested Visits Authorized [id number] Pending Review 10/07/2023 10/06/2024 1 1 Specialty Diagnoses / Procedures Referred By Contac t Referred To Contact Cardiology Diagnoses Typical atrial flutter (Multi) Procedures Follow Up In Cardiology Jonas Ch MD [facility] [facility] 2, [address] [place] [address] Jonas Ch MD [address] [place] [address] 2, [address] [place] [address] Referral ID Status Reason Start Date Expiration Date V isits Requested Visits Authorized [id number] Authorized 10/07/2023 10/06/2024 1 1 Reason LEFT FOOT INJURY Diagnosis 1 Type 2 diabetes ye itus with hyperglycemia (E11.65) Diagnosis 2 Injury of foot, left (S99.922A) Referral Organization [facility] Referring Provider First Name Angelique Referring Provider Last Name Yvonne Referring Provider Specialty Nurse Pract itioner Referred Organization [facility] Referred Provider Karl Fritz Referred Address ,[place], [place],[address] Referred Provider Specialty Podiatry - S urgical Chiropody Referral Priority Routine Referral Appointment Date 2023-01-09 General Notes Emerald Doshi 12/28 03:26:20 PM >SCHEDULED FOR 01/09/23 AT 10:15AM. PATIENT INFORMED. Additional Source Comments INFORMATION SOURCE (unrecogn ized section and content) DATE CREATED AUTHOR 10/21/2017 [employer] DATE CREATED AUTHOR AUTHOR'S ORGANIZ ATION 10/22/2017 [facility] DATE CREATED AUTHOR AUTHOR'S ORGANIZ ATION 02/16/2019 [facility] DATE CREATED AUTHOR AUTHOR'S ORGANIZ ATION 02/02/[address] [facility] DATE CREATED AUTHOR AUTHOR'S ORGANIZ ATION 11/16/2024 [facility] DATE CREATED AUTHOR AUTHOR'S ORGANIZ ATION 01/01/2025 [facility] DATE CREATED AUTHOR AUTHOR'S ORGANIZ ATION 01/03/2025 [facility] DATE CREATED AUTHOR AUTHOR'S ORGANIZ ATION 01/20/2025 [facility] EPIC REASON FOR VISIT (unrecogniz ed section and content) Reason Comments Hospital Follow-up [facility] 09/14/23 Reason Comments Peripheral Neuropathy Reason Comments Blood Pressure Check With ekg Specialty Diagnoses / Procedures Referred By Tahmina thurston Referred To Contact Cardiology Diagnoses Hypertension, unspecified type Procedures Follow Up In Cardiology Roland Faust MD [address] [place] [address] [address], [address] [address] Phone: tel: fax: Roland Faust MD [address] [place] [address] [address], [address] [address] Phone: tel: fax: Referral ID Status Reason Start Date Expiration Date V isits Requested Visits Authorized [id number] Authorized 03/09/2024 03/09/2025 1 1 Reason Comments Follow-up [facility] follow up Specialty Diagnoses / Procedures Referred By Tahmina thurston Referred To Contact Cardiology Diagnoses Typical atrial flutter (Multi) Procedures Follow Up In Cardiology Jonas Ch MD [address] [place] [address] 2, [address] [address] Jonas Ch MD [address] [place] [address] [address], [address] [address] Referral ID Status Reason Start Date Expiration Date V isits Requested Visits Authorized [id number] Authorized 10/07/2023 10/06/2024 1 1 Reason Comments cognitive decline Reason Comments Follow-up Medication change, A sherman d/c Specialty Diagnoses / Procedures Referred By Tahmina t Referred To Contact Cardiology Diagnoses Typical atrial flutter (Multi) Procedures Follow Up In Cardiology Roland Faust MD [address] [place] [address], [address] [address] Roland Faust MD [address] [place] [address], [address] [address] Referral ID Status Reason Start Date Expiration Date V isits Requested Visits Authorized [id number] Authorized 11/28/2023 11/27/2024 1 1 Specialty Diagnoses / Procedures Referred By Tahmina thurston Referred To Contact Neurology Diagnoses Carpal tunnel syndrome, bilateral upper limbs Procedures MI INJECTION THERAPEUTIC CARPAL TUNNEL MI KETOROLAC TROMETHAMINE INJ 1 CC STERILE SYRINGE&NEEDLE Oz Kincaid MD [address] [place] [id number] Oz Kincaid MD [address] [place] [phone] Referral ID Status Reason Start Date Expiration Date V isits Requested Visits Authorized [id number] Closed Perform Procedure 12/16/2023 06/13/2024 1 1 Reason Comments Follow-up 4 month with EKG. Pt denies c/o at this time. Specialty Diagnoses / Procedures Referred By Tahmina t Referred To Contact Cardiology Diagnoses Nonischemic cardiomyopathy (Multi) Procedures Follow Up In Cardiology Jonas Ch MD Traboulssi, Mourhaf, MD [address] [place] [address], [address] [address] Phone: tel: fax: Referral ID Status Reason Start Date Expiration Date V isits Requested Visits Authorized [id number] Pending Review 11/13/2023 11/12/2024 1 1 Reason Comments cognitive decline Reason Comments Med Refill Reason Comments Follow-up 6 month, nonischemic cardiomyopathy Specialty Diagnoses / Procedures Referred By Tahmina t Referred To Contact Cardiology Diagnoses Nonischemic cardiomyopathy (Multi) Procedures Follow Up In Cardiology Roland Faust MD [facility] [facility] 2, [address] [place] [address] Phone: tel: fax: Referral ID Status Reason Start Date Expiration Date V isits Requested Visits Authorized [id number] Authorized 06/26/2024 06/26/2025 1 1 Care Teams [...] 2024 Team Status: Active Member Role Status Marco [...] 2024 End: September 07, 2024 Edgar Eden , DO Attending Provider Active S tart: September [...] Keita , DO Primary Care Provider, Attending Fracnhesca hartley Active Team Status: Inactive Member Role [...] 2023 End: September 14, 2023 Elizabeth Parra [facility] Other Provider Active Sta rt: September [...] Active Start: M ay 2023 Elizabeth Parra [facility] Other Provider Active Sta rt: September 14, 2023 Ashley Cheatham MD Other Provider Active Start: September 14, 2023 Faraz Gilliam MD Attending Provider Activ e Start: September 14, 2023 Team Status: Active Member Role Status Dates Sandar Keita DO Primary Care Provider Active Start: September 16, 2023 Loren Denise LPN Attending Provider Active Sta rt: September 16, 2023 Team Status: Inactive Member Role Status Dates Sandra Keita DO Primary Care Provider Active Start: September 17, 2023 End: September 17, 2023 Tolu Salinas APRN Attending Provider Active Start: September 17, 2023 End: September 17, 2023 School Bus Monitor Relationship Specialty Start Date End Date Sandra Keita DO [address] [facility] [place] [address] PCP - General Family Medicine 09/25/23 Team [...] 2023 End: September 14, 2023 Elizabeth Parra [facility] Other Provider Active Sta rt: September 14, 2023 End: September 14, 2023 Ashley Cheatham MD Other Provider Active Start: September 14, 2023 End: September 14, 2023 Faraz Gilliam MD Attending Provider Activ e Start: September 14, 2023 End: September 14, 2023 Team Status: Inactive Member Role Status Dates Sandra Keita , DO Primary Care Provider Active Start: October [...] art: November 10, 2023 Jluis Campos , DO Admit Provider, Attending Provider Active [...] November 10, 2023 End: November 12, 2023 CHERYL Jimenez Other Provider Active Sta rt: November 10, 2023 End: November 12, 2023 Jeanien Ibrahim APRN-ASSISTANT DIRECTOR OF ADMISSIONS-C Other Provider Active Start: November 10, 2023 [...] 2023 End: December 02, 2023 Tolu Salinas SILVICULTURIST Referring Provider Active Start: December 02, 2023 [...] January 15, 2024 End: January 15, 2024 School Bus Monitor Relationship Specialty Start Date End Date Sandra eKita DO [address] [facility] [place] [address] PCP - General Family Medicine 01/09/23 Team Status: Inactive Member Role Status Dates Sandra Keita DO Primary Care Provide r, Attending Provider Active Start: February 03, 2024 End: February 03, 2024 School Bus Monitor Relationship Specialty Start Date End Date Sandra Keita DO [address] [facility] [place] [address] PCP - General Family Medicine 01/09/23 School Bus Monitor Relationship Specialty Start Date End Date Sandra Keita DO [address] [facility] [place] [address] PCP - General Family Medicine 01/09/23 School Bus Monitor Relationship Specialty Start Date End Date Sandra Keita DO [address] [place] [phone] PCP - General Family Medicine 01/09/23 School Bus Monitor Relationship Specialty Start Date End Date Sandra Keita DO [address] [place] [phone] PCP - General Family Medicine 01/09/23 School Bus Monitor Relationship Specialty Start Date End Date Sandra Keita DO [address] [place] [address] PCP - General Family Medicine 09/25/23 School Bus Monitor Relationship Specialty Start Date End Date Sandra Keita DO [address] [place] [address] PCP - General Family Medicine 01/09/23 School Bus Monitor Relationship Specialty Start Date End Date Sandra Keita DO [address] [place] [address] PCP - General Family Medicine 01/09/23 School Bus Monitor Relationship Specialty Start Date End Date Sandra Keita DO [address] [place] [address] PCP - General Family Medicine 01/09/23 School Bus Monitor Relationship Specialty Start Date End Date Sandra Keita DO [address] [place] [address] PCP - General Family Medicine 09/25/23 School Bus Monitor Relationship Specialty Start Date End Date Sandra Keita DO [address] [place] [address] PCP - General Family Medicine 01/09/23 School Bus Monitor Relationship Specialty Start Date End Date Sandra Keita DO [address] [place] [address] PCP - General Family Medicine 01/09/23 School Bus Monitor Relationship Specialty Start Date End Date Sandra Keita DO [address] [place] [address] PCP - General Family Medicine 09/25/23 School Bus Monitor Relationship Specialty Start Date End Date Sandra Keita DO [address] [place] [address] PCP - General Family Medicine 01/09/23 School Bus Monitor Relationship Specialty Start Date End Date Sandra Keita DO [address] [place] [address] PCP - General Family Medicine 01/09/23 School Bus Monitor Relationship Specialty Start Date End Date Sandra Keita DO [address] [place] [address] PCP - General Family Medicine 01/09/23 School Bus Monitor Relationship Specialty Start Date End Date Sandra Keita DO [address] [place] [phone] PCP - General Family Medicine 01/09/23 School Bus Monitor Relationship Specialty Start Date End Date Sandra Keita DO [address] [place] [address] PCP - General Family Medicine 01/09/23 School Bus Monitor Relationship Specialty Start Date End Date Sandra Keita DO [address] [place] [address] PCP - General Family Medicine 01/09/23 School Bus Monitor Relationship Specialty Start Date End Date Sandra Keita DO [address] [place] [address] PCP - General Family Medicine 01/09/23 School Bus Monitor Relationship Specialty Start Date End Date Sandra Keita DO [address] [place] [address] PCP - General Family Medicine 01/09/23 School Bus Monitor Relationship Specialty Start Date End Date Sandra Keita DO [address] [place] [address] PCP - General Family Medicine 01/09/23 Team [...] May 25, 2024 End: May 25, 2024 School Bus Monitor Relationship Specialty Start Date End Date Sandra Keita DO [address] [facility] [place] [address] PCP - General Family Medicine 09/25/23 Team Status: Inactive Member Role Status Dates Sandra Keita DO Primary Care Provider Active Start: April 28, 2024 End: April 28, 2024 Kourtney Demboske , NITZA Attending Provider Active Start: March End: April 28, 2024 School Bus Monitor Relationship Specialty Start Date End Date Sandra Keita DO [address] [facility] [place] [address] PCP - General Family Medicine 01/09/23 Team [...] October 01, 2024 End: October 01, 2024 School Bus Monitor Relationship Specialty Start Date End Date Sandra Keita DO PCP - General Family Medicine 01/09/23 School Bus Monitor Relationship Specialty Start Date End Date Sandra Keita DO PCP - General Family Medicine 01/09/23 School Bus Monitor Relationship Specialty Start Date End Date Sandra Keita DO PCP - General Family Medicine 01/09/23 School Bus Monitor Relationship Specialty Start Date End Date Sandra Keita DO [address] [place] [address] PCP - General Family Medicine 10/15/24 School Bus Monitor Relationship Specialty Start Date End Date Sandra Keita DO [address] [place] [address] PCP - General Family Medicine 10/15/24 School Bus Monitor Relationship Specialty Start Date End Date Sandra Keita DO [address] [place] [address] PCP - General Family Medicine 10/15/24 School Bus Monitor Relationship Specialty Start Date End Date Sandra Keita DO [address] [place] [address] PCP - General Family Medicine 10/15/24 Team [...] November 16, 2024 End: November 16, 2024 School Bus Monitor Relationship Specialty Start Date End Date Sandra Keita DO [address] [place] [address] PCP - General Family Medicine 10/15/24 School Bus Monitor Relationship Specialty Start Date End Date Sandra Keita DO [address] [facility] [place] [address] PCP - General Family Medicine 10/15/24 Team Status: Active Member Role Status Dates Shantel Norton APRN SENIOR PROGRAM MANAGER-C Primary Care Provider Active Team Status: Inactive Member Role Status Dates Shantel Norton APRN SENIOR PROGRAM MANAGER-C Primary Care Provider Active Start: December 15, 2024 End: December 15, 2024 Shantel Norton APRN SENIOR PROGRAM MANAGERElida Attending Provider Act [id number] Start: December 15, 2024 End: December 15, 2024 School Bus Monitor Relationship Specialty Start Date End Date Sandra Keita DO [address] [facility] [place] [address] PCP - General Family Medicine 10/15/24 Team Status: Inactive Member Role Status Dates Samm Medina MD Attending Provider Active S tart: December 24, 2024 End: December 24, 2024 Shantel Norton APRN SENIOR PROGRAM MANAGER-C Primary Care Provider Active Start: December 24, 2024 End: December 24, 2024 School Bus Monitor Relationship Specialty Start Date End Date Shantel Norton APRN-JAYSON [address] [place] [address] PCP - General Family Medicine 12/30/24 Team Status: Active Member Role Status Dates Samm Medina MD Attending Provider Active S tart: December 31, 2024 Samm Medina MD Other Provider Active Start : December 31, 2024 Shantel Norton APRN SENIOR PROGRAM MANAGER-Vamsi Primary Care Provider Active Start: December 312024 Team Status: Inactive Member Role Status Dates Shantel Norton APRN SENIOR PROGRAM MANAGER-Vamsi Primary Care Provider Active Start: January 052024 End: January 05, 2025 Angelique Russell APRN Attending Provider Active Start: January 05, 2025 End: January 05, 2025 Team Status: Inactive Member Role Status Dates Shantel Norton APRN SENIOR PROGRAM MANAGER-Vamsi Primary Care Provider Active Start: December 282024 End: January 12, 2025 Shantel Norton APRN SENIOR PROGRAM MANAGERElida Attending Provider Active Start: December End: January 12, 2025 School Bus Monitor Relationship Specialty Start Date End Date Sandra Keita DO [address] [place] [phone] PCP - General Family Medicine 10/15/24 Goals [...] BE BASED ON THE PRIMARY CLINICAL RECORDS. [employer] provides no warranty or guarantee of the accuracy or completeness of information in this document.
== END 2025-01-21 08:29 | disposition home or self-care (01) ==
LOC: US 08:28
PROVIDERS: Family Provider Family Medicine; PCP Family Medicine; Visit Provider Nurse Practitioner Family
DX: D73.89 Other diseases of spleen (principal)
CPT/HCPCS: 76705

== ENCOUNTER 2025-01-27 06:28 | Outpatient (OUT) | payer MEDICARE, MEDICAID, SELFPAY ==
--- OUTSIDE RECORDS SUMMARY | 2015-08-21 20:00 | XMS_ITS | Continuity of Care Document ---
Author Organization [facility] Address [address] [place] [address] Phone Care Team Providers Care Grader Meat Name Role Phone Bridget VARGAS, Margarita Unavailable [...] Diagnoses Date Provider Providers Copied on Encounter [facility], [address] [place], [place], [id number] , tel:[phone] [facility] - OP No Information 6 Bridget Avila. [address] [facility] Physician Office [place], [place], [id number], [place]. tel:[phone] Referring Provider: Margarita Gutierrez, [address] [facility] Physician Office Building, [place], [address] . tel:[phone] [facility], [address] [place], [place], [address] , tel:[phone] [facility] - OP Shortness of breathChest pain, unspecifiedDizzines s and giddiness 6 Susie Del Toro. [address] [facility] Physicians Office [place], [place], [address], [place]. tel:[phone] Referring Provider: Margarita Gutierrez, [address] [facility] Physician Office Building, [place], [address] . tel:[phone] [facility], [address] [facility], [place], [place], [address] , tel:[phone] [facility] - OP Shortness of breathChest pain, unspecifiedDizzines s and giddiness Apr-0 6-201 6 Jean Pierre-Marietta Blackwell. [address] [facility] Physicians Office Building, [place], [place], [facility], . tel:[phone] Referring Provider: Margarita Gutierrez, [address] [facility] Physician Office Building, [place], [address] . tel:[phone] Family History Family Member Type Diagnosis Age At Onset No Information Payers Payer name Insurance type Covered constitution party ID Jeremiah espinoza(link) Yoana [id number] Social History Type Description Quantity Date Captured [...]
--- OUTSIDE RECORDS SUMMARY | 2020-07-25 11:15 | XMS_ITS | Continuity of Care Document ---
Author Organization [facility] Address [address] [place] [address] Phone Care Team Providers Care Self Rising Flour Mixer Name Role Phone John Morgan Unavailable Unavailable [...] MANIPULATION GLYCOSYLATED HEMOGLOBIN TEST OFFICE/OUTPATIENT VISIT, [facility] Advance Directives Directive Yes / No Effective Date File Name No Information Encounters Encounter Description Practice Location Reason(s) For Visit Diagnoses Date Provider Providers Copied on Encounter [facility], [address] [place] [address], [id number] , tel: [phone] [facility] cervical spine (chief complaint) cervical spine (chief complaint) Segmental and somatic dysfunction of cervical regionCervicalgiaSegm ental and somatic dysfunction of lumbar region 9- 1 Eddie Lopez. [address] [place] [address], [id number] , [place]. tel: [phone] [facility], [address] [place] [address], [id number] , tel: [phone] [facility] cervical spine (chief complaint) cervical spine (chief complaint) Segmental and somatic dysfunction of cervical regionCervicalgiaSegm ental and somatic dysfunction of lumbar region 0-201 9 Eddie Lopez. [address] [place] [address], [id number] , [place]. tel: [phone] [facility], [address] [place] [address], [id number] , [place] tel: [phone] [facility] cervical spine (chief complaint) cervical spine (chief complaint) Segmental and somatic dysfunction of cervical regionCervicalgiaSegm ental and somatic dysfunction of lumbar regionLow back pain Jul-0 9-201 9 Eddie Lopez. [address] [place] [address], [id number] , [place]. tel: [phone] [facility], [address] [place] [address], [id number] , [place] tel: [phone] [facility] cervical spine (chief complaint) cervical spine (chief complaint) Segmental and somatic dysfunction of cervical regionCervicalgiaSegm ental and somatic dysfunction of lumbar regionLow back pain 9 Eddie Lopez. [address] [place], [place], [id number] , [place]. tel: [phone] [facility], [address], [place], [id number] , [place] tel: [phone] [facility] cervical spine (chief complaint) cervical spine (chief complaint) Segmental and somatic dysfunction of cervical regionCervicalgiaSegm ental and somatic dysfunction of lumbar regionLow back pain 9 Eddie Lopez. [address] [place], [place], [id number] , [place]. tel: [phone] [facility], [address] [place] [address], [id number] , [place] tel: [phone] [facility] cervical spine (chief complaint) cervical spine (chief complaint) Segmental and somatic dysfunction of cervical regionCervicalgiaSegm ental and somatic dysfunction of lumbar region 8 Eddie Lopez. [address] [place], [place], [id number] , [place]. tel: [phone] [facility], [address] [place] [address], [id number] , [place] tel: [phone] [facility] Spine Care (chief complaint) Segmental and somatic dysfunction of cervical regionCervicalgiaSegm ental and somatic dysfunction of lumbar region 8 Eddie Lopez. [address] [place] [address], [id number] , [place]. tel: [phone] [facility], [address] [place] [address], [id number] , [place] tel: [phone] [facility] Spine Care (chief complaint) Segmental and somatic dysfunction of cervical regionCervicalgiaSegm ental and somatic dysfunction of lumbar region 8 Eddie Lopez. [address] [place], [place], [id number] , [place]. tel: [phone] [facility], [address] [place] [address], [id number] , [place] tel: [phone] [facility] Spine Care (chief complaint) Segmental and somatic dysfunction of cervical regionCervicalgiaSegm ental and somatic dysfunction of lumbar regionOther intervertebral disc degeneration, lumbar region May-0 8 Eddie Lopez. [address] [place], [place], [id number] , [place]. tel: [phone] [facility], [address], [place], [id number] , [place] tel: [phone] [facility] Spine Care (chief complaint) Segmental and somatic dysfunction of lumbar regionLow back painOther intervertebral disc degeneration, lumbar regionSegmental and somatic dysfunction of cervical region Jul-2 0- 8 Eddie Lopez. [address] [place], [place], [id number] , [place]. tel: [phone] [facility], [address] [place] [address], [id number] , [place] tel: [phone] [facility] Spine Care (chief complaint) Segmental and somatic dysfunction of lumbar regionLow back painOther intervertebral disc degeneration, lumbar regionSegmental and somatic dysfunction of cervical region Jun-2 8 Eddie Lopez. [address] [place], [place], [id number] , [place]. tel: [phone] [facility], [address] [place], [place], [id number] , [place] tel: [phone] [facility] Spine Care (chief complaint) Segmental and somatic dysfunction of lumbar regionLow back painOther intervertebral disc degeneration, lumbar regionSegmental and somatic dysfunction of cervical region Jun-2 2- 8 Eddie Lopez. [address] [place], [place], [id number] , [place]. tel: [phone] [facility], [address], [place], [id number] , [place] tel: [phone] [facility] Spine Care (chief complaint) Segmental and somatic dysfunction of lumbar regionLow back painOther intervertebral disc degeneration, lumbar regionSegmental and somatic dysfunction of cervical region Jun- 9- 8 Eddie Lopez. [address] [place], [place], [id number] , [place]. tel: [phone] [facility], [address], [place], [id number] , [place] tel: [phone] [facility] Spine Care (chief complaint) Segmental and somatic dysfunction of lumbar regionLow back painOther intervertebral disc degeneration, lumbar regionSegmental and somatic dysfunction of cervical region Jun-1 5-201 8 Eddie Lopez. [address] [place], [place], [id number] , [place]. tel: [phone] [facility], [address], [place], [id number] , [place] tel: [phone] [facility] Spine Care (chief complaint) Segmental and somatic dysfunction of lumbar regionLow back painOther intervertebral disc degeneration, lumbar regionSegmental and somatic dysfunction of cervical region Jun-1 2-201 8 Eddie Lopez. [address] [place] [address], [id number] , [place]. tel: [phone] [facility], [address], [place], [id number] , [place] tel: [phone] [facility] Spine Care (chief complaint) Segmental and somatic dysfunction of lumbar regionLow back painOther intervertebral disc degeneration, lumbar regionSegmental and somatic dysfunction of cervical region Mar-0 8-201 8 Eddie Lopez. [address] [place], [place], [id number] , [place]. tel: [phone] [facility], [address] [place], [place], [id number] , [place] tel: [phone] [facility] Spine Care (chief complaint) Segmental and somatic dysfunction of lumbar regionLow back painOther intervertebral disc degeneration, lumbar regionSegmental and somatic dysfunction of cervical region Jun-0 5-201 8 Eddie Lopez. [address] [place] [address], [id number] , [place]. tel: [phone] [facility], [address] [place] [address], [id number] , [place] tel: [phone] [facility] Spine Care (chief complaint) Segmental and somatic dysfunction of lumbar regionLow back painOther intervertebral disc degeneration, lumbar regionSegmental and somatic dysfunction of cervical region Mar-0 1- 8 Eddie Lopez. [address] [place], [place], [id number] , [place]. tel: [phone] [facility], [address], [place], [id number] , [place] tel: [phone] [facility] Spine Care (chief complaint) Segmental and somatic dysfunction of lumbar regionLow back painOther intervertebral disc degeneration, lumbar regionSegmental and somatic dysfunction of cervical region Feb-2 6- 8 Eddie Lopez. [address] [place], [place], [id number] , [place]. tel: [phone] [facility], [address] [place] [address], [id number] , [place] tel: [phone] [facility] Spine Care (chief complaint) Segmental and somatic dysfunction of lumbar regionLow back painOther intervertebral disc degeneration, lumbar regionSegmental and somatic dysfunction of cervical region Feb-2 2- 8 Eddie Lopez. [address], [place], [id number] , [place]. tel: [phone] [facility], [address], [place], [id number] , [place] tel: [phone] [facility] Spine Care (chief complaint) Segmental and somatic dysfunction of lumbar regionLow back painOther intervertebral disc degeneration, lumbar regionSegmental and somatic dysfunction of cervical region Feb-2 0- 8 Eddie Lopez. [address], [place], [id number] , [place]. tel: [phone] [facility], [address], [place], [id number] , [place] tel: [phone] [facility] No Information Yan- 7 Eber Ramos. [address], [place], [id number] , [place]. tel: [phone] [facility], [address] [place] [address], [id number] , [place] tel:[phone] [facility] No Information 7 Eber Ramos. [address], [place], [id number] , [place]. tel: [phone] OFFICE/OUTPA TIENT VISIT, [facility], [address], [place], [id number] , [place] tel: [phone] [facility] est care (chief complaint) medication refill (chief complaint) Type 2 diabetes mellitus with hyperglycemiaType 2 DM with diabetic neuropathyInsomnia 7 Eber Ramos. [address] [place] [address], [id number] , [place]. tel: [phone] Family History Family Member Type Diagnosis Age [...] Foot exam. Due on 9 due Goal Foot exam. Due on 8 [...] eye exam. Due on Jun due Goal Dilated eye exam. Due on [...] Goal Lipid panel. Due on due Goal Lipid panel. Due [...] Goal Lipid panel. Due on due Goal Lipid panel. Due on due Goal Pneumococcal vaccine. Due on due Goal Foot exam. Due on 8 due Goal Hemoglobin A1C. Due on due Goal Urine microalbumin. Due on due Goal Dental exam. Due on due Goal Dilated eye exam. Due on May due Goal Foot exam. Due on 7 due Goal Lipid panel. Due on 017 due Goal Urine microalbumin. Due on due Goal Dilated eye exam. Due on Sep due Goal Dental exam. Due on due Goal Pneumococcal vaccine. Due on due Goal Dilated eye exam. Due on Sep due Goal Urine microalbumin. Due on due Goal Lipid panel. Due on due Goal Foot exam. Due on 7 due Goal Pneumococcal vaccine. Due on due Goal Dental exam. Due on due Goal Tobacco cessation counseling [...] establish care, she recently moved back to [place] from [place]. She is here taking care of her mother. She was seeing Sadie Fritz TRAIN RESERVATION CLERK in [place], states she just had blood work done beginning of June before moving here. A1C today 9.0. Patient states she does not currently have insurance since moving here from [place] and was unable to get her medications [...]
--- OUTSIDE RECORDS SUMMARY | 2025-01-19 16:00 | XMS_ITS | Encounter Summary ---
Author Organization [facility] Address [address] [place] [address] Care Team Providers Care Pinion Sorter Name Role Phone Sandra Lewis DO Primary Care Provider [phone] Reason for Visit * Reason Comments cognitive decline Encounter Details Date Type Department Care Team (Late st Contact Info) Description 01/19/2025 4:00 PM EDT Office Visit JUMA Ness [facility] Neurology [address] [facility] [address] [place] [address] Luan Kincaid MD [address] [facility] [address] [place] [address] Weakness of both lower extremities (Primary Dx); [...] -> medical office). Imaging MR L-s (11/2023, [facility]) - HNP T12-L1 mild ... errol L5-S1 modB . . . . (11/2023, [facility]) - HNP T12-L1 mild ... canal sten L2-3 mod ... errol sten L2-3 modB L4-5-S1 modB US LE (12/2016, [facility]) - atherosclerosis, nl PVR. Testing [facility] (11/2024) - acute L L5-S1 + PN sev . . . . (11/2023) - acute L S1 (nEMG) + PN pattern signif worse . . . . (03/2017, [facility]) - PN pattern Labs - P43=829/15/116/>22.3, was 359/16.7H/328/>22.3 ... A1c=8.4, was 10.4(!) ,,, [...] - end of Mar pt adm to [facility] for gen weakness & slurred speech, resolved [...] brain (03/2024) - never done during adm [facility] due to metal . . . . (10/2023, [facility]) - atrophy age-appropriate & ^T2/FLAIR CTA head (03/2024, [facility]) - no stenoses CTA neck(03/2024, [facility]) - < 20% B Testing (q.v.) ... [...] Motor - TA 5-L, unchanged: ___, orig: Director Of Religious Activities 4B ... APB 4R 4+L Sens - [...] COLPOSCOPY 09/2021 ESOPHAGEAL DILATION HYSTERECTOMY PARTIAL HYSTERECTOMY [place] VULVECTOMY SIMPLE PARTIAL 12/2018 TONSILLECTOMY VULVECTOMY 12/2017 [...] Take with meals. Continuous Blood Gluc Sensor ([employer]yle Brent 14 Day Sensor) [facility] apply 1 SENSOR as directed every 14 days use with DEVICE to MONIT... (REFER TO PRESCRIPTION NOTES). cyanocobalamin (Vitamin B-12) 2500 MCG tablet Docusate Sodium (DSS) 100 MG capsule Take 100 mg by mouth in the morning and 100 mg in the evening. donepezil (Aricept) 10 MG tablet 2 tabs QAM 60 tablet 5 Droplet Pen Rheems 32G X 4 MM [facility] use 1 PEN NEEDLE to inject MEDICATION [...] ? [address] ? [place], [place] [address] ? ? fax Neurology ? Clinical Neurophysiology ? Epilepsy ? Sleep Disorders ? Clinical Informatics documented in this encounter Plan of Treatment Upcoming Encounters Date Type Department Care Team (Late st Contact Info) Description 02/04/2025 12:30 PM EDT Office Visit JUMA NUNN [address] [place] [address] Nereida Castro MD [address] [place] [address] 02/10/2025 1:00 PM EDT Office Visit [facility] NUNN [address] [facility] [address] [place] [address] Nereida Castro MD [address] [facility] [address] [place] [address] 07/20/2025 4:00 PM EDT Office Visit [facility] [place] [facility] [address] [facility] [address] [place] [address] Luan Kincaid MD [address] [facility] [place] [phone] documented as of this encounter Visit Diagnoses Diagnosis Weakness of both lower extremities- Primary Carpal tunnel syndrome, bilateral Carpal tunnel syndrome Cognitive decline Cervical paraspinal muscle spasm Spasm of muscle B12 deficiency Guyon syndrome, unspecified laterality documented in this encounter Care Teams Pinion Sorter Relationship Specialty Start Date End Date Sandra Lewis DO [address] [facility] [place] [phone] PCP - General Family Medicine 10/15/24 documented as of this encounter
--- OUTSIDE RECORDS SUMMARY | 2025-01-19 16:02 | XMS_ITS ---
Author Name Auto Generated Organization OHIP Support Name Relationship Address Phone DEBORED, TON Next of Kin [address] [place] [phone] + SHIKHA PAZ Next of Kin Unknown [phone] DEBORED, TON Next of Kin [address] [place] [phone] + SHIKHA PAZ Next of Kin Unknown [phone] DEBORDE, TON Next of Kin Unknown [phone] Deborde, [place] [address] + Shikha Paz Next of Kin Unknown [phone] DEBORED, TON Next of Kin [address] [place] [address] [place] [address] + SHIKHA PAZ Next of Kin Unknown [phone] DEBORED, TON Next of Kin [address] [place] [address], [place] [address] + SHIKHA PAZ Next of Kin Unknown [phone] DEBORED, TON Next of Kin [address] [place] [address] [place] [address] + SHIKHA PAZ Next of Kin Unknown [phone] Deborde, [place] [address] + Shikha Paz Next of Kin Unknown [phone] DEBORED, TON Next of Kin [address] [place] [address] [place] [address] + SHIKHA PAZ Next of Kin Unknown [phone] DEBORED, TON Next of Kin [address] [place] [address], [place] [address] + SHIKHA PAZ Next of Kin Unknown [phone] DEBORED, TON Next of Kin [address] [place] [address] + SILVIS, SHIKHA Next of Kin Unknown [phone] Deborde, [place] [address] + Logan, Shikha Next of Kin Unknown [phone] Deborde, [place] [address] + Logan, Shikha Next of Kin Unknown [phone] DEBORED, TON Next of Kin [address] [place] [address] + SILVIS, SHIKHA Next of Kin Unknown [phone] Deborde, [place] [address] + Logan, Shikha Next of Kin Unknown [phone] Deborde, [place] [address] + Logan, Shikha Next of Kin Unknown [phone] Deborde, [place] [address] + Logan, Shikha Next of Kin Unknown [phone] DEBORDE, TON Next of Kin Unknown [phone] Deborde, [place] [address] + Logan, Shikha Next of Kin Unknown [phone] Deborde, [place] [address] + Logan, Shikha Next of Kin Unknown [phone] Deborde, [place] [address] + Logan, Shikha Next of Kin Unknown [phone] DEBORED, TON Next of Kin [address] [place] [address] + DEBORED, TON Next of Kin [address] [place] [address] + DEBORDE, TON Next of Kin Unknown [phone] DEBORED, TON Next of Kin [address] [place] [address] + [place] [address] + BrandiShikha Next of Kin Unknown [phone] DEBJANET, TON Next of Kin [address] [place] [address] + Care Team Providers Care Vacuum Cleaner Operator Name Role Phone KARL FRITZ Attending Unavailable OZ KINCAID Attending Unavailable OZ KINCAID Attending Unavailable KARL FRITZ Attending Unavailable OZ KINCAID Attending Unavailable BEOZ Gutierrez Attending Unavailable KARL FRITZ Attending Unavailable KARL FRITZ Attending Unavailable KARL FRITZ Attending Unavailable OZ KINCAID Attending Unavailable OZ KINCAID Referring Unavailable OZ KINCAID Attending Unavailable OZ KINCAID Referring Unavailable BEOZ Gutierrez Referring Unavailable OZ KINCAID Attending Unavailable Lit Clark Consulting Unavailab Jori Carvalho Admitting Unavailable Lewis, Sandra A Primary Care Unavailable Priscilla Lang Attending Unavailable Angelique Russell Consulting Unavailable Trabjamai, Mourhaf Admitting Unavailable Traboulssi, Mourhaf Attending Unavailable Lewis, Sandra A Primary Care Unavailable Lewis, Sandra A Primary Care Unavailable Lewis, Sandra A Attending Unavailable Lewis, Sandra A Admitting Unavailable Lewis, Sandra A Primary Care Unavailable Tray Nava Admitting Unavailabl e Tray Nava Attending Unavailabl e Lewis, Sandra A Primary Care Unavailable Asaad, Imad Admitting Unavailable Asaad, Imad Attending Unavailable Reynold Daily Attending Unavailable Lewis, Sandra A Primary Care Unavailable Ryenold Daily Admitting Unavailable Oz Kincaid Referring Unavailable Lewis, Sandra A Primary Care Unavailable Nataliya Jane Admitting Unavail able Nataliya Jane Attending Unavail able Lewis, Sandra A Primary Care Unavailable Asaad, Imad Admitting Unavailable Asaad, Imad Attending Unavailable Deneen Frost Admitting Unavailable Deneen Frost Attending Unavailable Shantel Norton Primary Care Unavailable Shikha Medina Admitting Unavailable Shikha Medina Attending Unavailable Karl Fritz Admitting Unavailable Karl Fritz Attending Unavailable Monico VARGAS, Halie Doss Attending Unavailable Monico VARGAS, Halie Doss Attending Unavailable THUAN WISE Attending Unavailable THUAN WISE Referring Unavailable SHANTEL NORTON Primary Care Unavailab le THUAN WISE Attending Unavailable THUAN WISE Referring Unavailable SANDRA LEWIS Primary Care Unavailable THUAN WISE Attending Unavailable JONAS AMEZCUA Referring Unavailable SANDRA LEWIS Primary Care Unavailable PROBLEMS DATE TYPE CONDITION / CODE ATTENDING STATUS [facility] 12/30/2024 Admitting Diagnosis Obesity, unspecified / E66.9(ICD-10) [facility] 11/13/2023 Admitting Diagnosis Nicotine dependence, unspecified, uncomplicated / F17.200(ICD-10) [facility] 10/07/2023 Admitting Diagnosis Other cardiomyopathies / I42.8(ICD-10) [facility] 10/07/2023 Admitting Diagnosis Typical atrial flutter (Multi) / I48.3(ICD-10) [facility] 09/17/2023 Admitting Diagnosis Essential (primary) hypertension / I10(ICD-10) [facility] 09/17/2023 Admitting Diagnosis Pure hypercholesterolemia, unspecified / E78.00(ICD-10) [facility] 12/24/2024 Unknown Obstructive slee p apnea (adult) (pediatric) / G47.33(ICD-10) Shikha Medina [facility] 11/16/2024 Unknown 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 / L97.512(ICD-10) Karl Fritz [facility] 09/10/2024 Unknown Dysphagia, unspe cified / R13.10(ICD-10) Asaad, Imad [facility] 07/22/2024 Unknown Peripheral vascu lar disease, unspecified / I73.9(ICD-10) Tray Nava [facility] 06/26/2024 Unknown Secondary polycy themia / D75.1(ICD-10) Nataliya Jane [facility] 06/26/2024 Unknown Type 2 diabetes mellitus with hyperglycemia / E11.65(ICD-10) [facility] 06/26/2024 Unknown Hyperlipidemia, unspecified / E78.5(ICD-10) [facility] 06/26/2024 Admitting Diagnosis Body mass index (BMI) 32.0-32.9, adult / Z68.32(ICD-10) [facility] 04/28/2024 Unknown Transient cerebr al ischemic attack, unspecified / G45.9(ICD-10) [facility] 04/28/2024 Unknown Paroxysmal atria l fibrillation / I48.0(ICD-10) [facility] 04/28/2024 Unknown Weakness / R53.1(ICD-10) [facility] 04/28/2024 Unknown Type 2 diabetes mellitus without complications / E11.9(ICD-10) [facility] 04/28/2024 Unknown Hypothyroidism, unspecified / E03.9(ICD-10) [facility] 04/28/2024 Unknown Hypomagnesemia / E83.42(ICD-10) [facility] 04/27/2024 Unknown Dizziness and giddiness / R42(ICD-10) Reynold Daily [facility] PROCEDURES No Procedure Records Found RESULTS MR LUMBAR SPINE WO CONTRAST Observed: 3:43 PM Status: F Source: [facility] EPIC EXAM: MR LUMBAR SPINE WO [...] Observed: 10/28 4:48 PM Status: F Source: [facility] ORGANISM: Klebsiella oxytoca (O:KLEOXY) Quantity of Growth [...] RESISTANT TO ALL B-LACTAM DRUGS. PERFORMED BY: [place] [address] PATHOLOGIST BINDERY CUTTER OPERATOR BENNIE HIGGINBOTHAM M.D. Performed By: #### CUSUP ### # [address] PATHOLOGY REQUEST FOR LAB ARON Collected: 09/10/2024 12:36 PM Status: F Source: [facility] Order Comment: GI SPECIMEN TYPE CODE TESTS RESULT OUT OF RANGE REFERENCE UNITS LAB PATH TO [facility] Pathology Request for Lab Aron Result Comment: See report. Scanned copy available in EMR. PERFORMED BY: [place] [address] PATHOLOGIST BINDERY CUTTER OPERATOR LE MACE M.D. Performed By: #### PATH TO [facility] #### [address] [place] [address] [place] GLUCOSE POCT GLUCOMETERS Collected: 09/10/2024 11:17 AM Status: F Source: [facility] TYPE CODE TESTS RESULT OUT OF RANGE REFERENCE UNITS LAB GLUPOC Glucose Poc Glucometers 234 mg/dL Result Comment: Random Gluc ose Reference Range is dependent on time and content of last meal. Glucose of more than 200 mg/dL in a nonstressed, ambulatory subject supports the diagnosis of Diabetes Mellitus. LAB COMM1 Commemt1 Glu2: Cleaned Meter Result Comment: PERFORMED BY : [place] [id number] PATHOLOGIST BINDERY CUTTER OPERATOR LE MACE M.D. Performed By: #### GLULS ### # Point of Care testing , US ANKLE/ARM INDICES Observed: 9:20 AM Status: COMPLETED Source: [facility] [address] [place] [address] Ultrasound Report Signed Patient: Kerry Marcos MR#: [id number] 19 : 1955 Acct:[id number] Age/Sex: 68 / F ADM Date: 07/22/24 Loc: [facility] Room: Type: [facility] Attending Dr: Tray Nava MD Ordering Provider: [...] Eugenio Rob M.D.07/23/2024 9:21 AM Dictation Location: [facility] Tech: Carmelita Horowitz Transcribed By: [facility] 07/23/24920 Dictated By: Eugenio Rob MD 07/23/24919 Signed By: <Electronically signed by MD Eugenio Rob in OV> 07/23/24920 URINE CULTURE Observed: 07/06/2024 8:37 PM Status: F Source: [facility] ORGANISM: Klebsiella oxytoca (O:KLEOXY) [place] Count >100,000 Aerobic FAMILIA Charge (NMIC56) SUSCEPTIBILITY [...] RESISTANT TO ALL B-LACTAM DRUGS. PERFORMED BY: [address] [place] [address] PATHOLOGIST BINDERY CUTTER OPERATOR LE MACE M.D. Performed By: #### CUU #### [facility] [address] [place] [address] [facility] MICROALB CREAT RATIO,U Collected: 06/26 10:49 AM Status: F Source: [facility] TYPE CODE TESTS RESULT OUT OF RANGE REFERENCE UNITS LAB UMAT Microalbumin , Urine <0.7 Normal 0.0-1.8 mg/dL LAB UCREA Creatinine, Urine (Random) 65.00 mg/dL Result Comment: No reference range established LAB MACREATRATIO Microalbumin /Creatinine Ratio Test not performed 0.0-30.0 Result Comment: PERFORMED BY : [place] [address] PATHOLOGIST BINDERY CUTTER OPERATOR LE MACE M.D. Performed By: #### URMACRERA T #### [facility] [address] [place] [id number] [facility] LIPID PANEL Collected: 06/26/2024 10:48 AM Status: F Source: [facility] TYPE CODE TESTS RESULT OUT OF RANGE REFERENCE UNITS LAB CHOL Cholesterol 93 Low 140-200 mg/dL Result Comment: Chol less th an 200 mg/dl low risk Chol 201-239 mg/dl borderline risk Chol 240 mg/dl and greater high risk LAB HDL HDL Cholesterol 27 Normal 23-92 mg/dL Result Comment: HDL CHOL AT P-III CLASSIFICATION Cardiovascular Risk HDL > or equal to 60 mg/dL LOW HDL < 40 mg/dL HIGH LAB TRIG W REF Triglyceride w/Reflex 162 High 0-149 mg/dL Result Comment: TRIG ATP II I CLASSIFICATION TRIG less than 150 mg/dL Normal [...] By: #### TSH3 wRFL X, LIPID #### [facility] [address] [place] [address] THYROID STIM HORMONE W/RFLX Collected: 06/26/2024 10:48 AM Status: F Source: [facility] TYPE CODE TESTS RESULT OUT OF RANGE REFERENCE UNITS LAB TSH3 wRFLX Thyroid Stim Hormone w/Rflx 1.45 Normal 0.45-5.33 u[iU]/mL Result Comment: PERFORMED BY : [place] [address] PATHOLOGIST BINDERY CUTTER OPERATOR LE MACE M.D. Performed By: #### TSH3 wRFL X, LIPID #### [address] B-TYPE NATRIURETIC PEPTIDE Collected: 06/26/2024 10:4 8 AM Status: F Source: [facility] TYPE CODE TESTS RESULT OUT OF RANGE REFERENCE UNITS LAB BNP B-Type Natriuretic Peptide 54.0 Normal 5-100 pg/mL Result Comment: PERFORMED BY : [place] [address] PATHOLOGIST BINDERY CUTTER OPERATOR LE MACE M.D. Performed By: #### BNP #### [place] [id number] [facility] COMPREHENSIVE METABOLIC PANEL Collected: 06/26/2024 1 0:47 AM Status: F Source: [facility] TYPE CODE TESTS RESULT OUT OF RANGE [...] 34-104 U/L Result Comment: PERFORMED BY : [place] [address] PATHOLOGIST BINDERY CUTTER OPERATOR LE MACE M.D. Performed By: #### CMP #### [facility] [address] [place] [address] COMPLETE BLOOD COUNT AUTO DIFF Collected: 06/26/2024 10:46 AM Status: F Source: [facility] TYPE CODE TESTS RESULT OUT OF RANGE [...] 0.0-0.2 10*3/uL Result Comment: PERFORMED BY : [place] [address] PATHOLOGIST BINDERY CUTTER OPERATOR LE MACE M.D. Performed By: #### CBC #### [address] FLOWCYTOMETRY NEOGENOMIC Collected: 06/26/2024 10:44 AM Status: F Source: [facility] TYPE CODE TESTS RESULT OUT OF RANGE REFERENCE UNITS LAB FLOW NEOGENOMIC Flowcytometry Neogenomic Result Comment: See report. Scanned copy available in EMR. Performed By: #### BCRABL NE OGENOM, FLOW NEOGENOMIC, FERDINAND 2 NEOGENOMI #### [address] FERDINAND 2 NEOGENOMIC Collected: 06/26/2024 10:44 AM Stat us: F Source: [facility] TYPE CODE TESTS RESULT OUT OF RANGE REFERENCE UNITS LAB FERDINAND 2 NEOGENOMI FERDINAND 2 Neogenomic Result Comment: See report. Scanned copy available in EMR. Performed By: #### BCRABL NE OGENOM, FLOW NEOGENOMIC, FERDINAND 2 NEOGENOMI #### [address] BCR-ABL NEOGENOMIC Collected: 06/26/2024 10:[address] atus: F Source: [facility] TYPE CODE TESTS RESULT OUT OF RANGE REFERENCE UNITS LAB BCRABL NEOGENOM BCR-ABL Neogenomic Result Comment: See report. Scanned copy available in EMR. PERFORMED BY: [place] [address] PATHOLOGIST BINDERY CUTTER OPERATOR LE MACE M.D. Performed By: #### BCRABL NE OGENOM, FLOW NEOGENOMIC, FERDINAND 2 NEOGENOMI #### [facility] [address] [place] [address] MR HEAD/BRAIN WO/W CON Observed: 025 7:54 PM Status: COMPLETED Source: [facility] [place] [address] MRI Report Signed Patient: Kerry Marcos MR#: [id number] [birth year] : 1955 Acct:[id number] Age/Sex: 68 / F ADM Date: 05/25/24 Loc: MR Room: Type: [facility] Attending Dr: Sandra Lewis DO Copies [...] Eugenio Lazo M.D.05/25/2024 7:59 PM Dictation Location: [place] [address] Transcribed By: [facility] 05/25/241958 Dictated By: Eugenio Lazo DO 05/25/241953 Signed By: <Electronically signed by Eugenio Lazo DO in OV> 05/25/241958 GLUCOSE POCT GLUCOMETERS Collected: 04/30/2024 11:32 AM Status: F Source: [facility] TYPE CODE TESTS RESULT OUT OF RANGE REFERENCE UNITS LAB GLUPOC Glucose Poc Glucometers 154 mg/dL Result Comment: Random Gluco se Reference Range is dependent on time and content of last meal. Glucose of more than 200 mg/dL in a nonstressed, ambulatory subject supports the diagnosis of Diabetes Mellitus. PERFORMED BY: [address] [place] [address] PATHOLOGIST BINDERY CUTTER OPERATOR LE MACE M.D. Performed By: #### GLULS ### # Point of Care testing , GLUCOSE POCT GLUCOMETERS Collected: 04/30/2024 6:45 A M Status: F Source: [facility] TYPE CODE TESTS RESULT OUT OF RANGE REFERENCE UNITS LAB GLUPOC Glucose Poc Glucometers 134 mg/dL Result Comment: Random Gluco se Reference Range is dependent on time and content of last meal. Glucose of more than 200 mg/dL in a nonstressed, ambulatory subject supports the diagnosis of Diabetes Mellitus. PERFORMED BY: [address] [place] [address] PATHOLOGIST BINDERY CUTTER OPERATOR LE MACE M.D. Performed By: #### GLULS ### # Point of Care testing , COMPLETE BLOOD COUNT AUTO DIFF Collected: 04/30/2024 5:31 AM Status: F Source: [facility] TYPE CODE TESTS RESULT OUT [...] 0.0-0.2 10*3/uL Result Comment: PERFORMED BY : [place] [address] PATHOLOGIST BINDERY CUTTER OPERATOR LE MACE M.D. Performed By: #### CMP, MG, PHOS, CBC #### [facility] [address] [place] [address] COMPREHENSIVE METABOLIC PANEL Collected: 04/30/2024 5 :31 AM Status: F Source: [facility] TYPE CODE TESTS RESULT OUT OF RANGE [...] By: #### CMP, MG, PHOS, CBC #### [address] PHOSPHORUS Collected: 5 5:31 AM Status: F Source: [facility] TYPE CODE TESTS RESULT OUT OF RANGE REFERENCE UNITS LAB PHOS Phosphorus 2.9 Normal 2.5-4.5 mg/dL Performed By: #### CMP, MG, PHOS, CBC #### [address] MAGNESIUM Collected: 5 5:31 AM Status: F Source: [facility] TYPE CODE TESTS RESULT OUT OF RANGE REFERENCE UNITS LAB MG Magnesium 1.7 Low 1.9-2.7 mg/dL Result Comment: PERFORMED BY : [place] [address] PATHOLOGIST BINDERY CUTTER OPERATOR LE MACE M.D. Performed By: #### CMP, MG, PHOS, CBC #### [address] [place] [address] [facility] GLUCOSE POCT GLUCOMETERS Collected: 04/29/2024 8:48 P M Status: F Source: [facility] TYPE CODE TESTS RESULT OUT OF RANGE REFERENCE UNITS LAB GLUPOC Glucose Poc Glucometers 165 mg/dL Result Comment: Random Gluco se Reference Range is dependent on time and content of last meal. Glucose of more than 200 mg/dL in a nonstressed, ambulatory subject supports the diagnosis of Diabetes Mellitus. PERFORMED BY: [place] [address] PATHOLOGIST BINDERY CUTTER OPERATOR LE MACE M.D. Performed By: #### GLULS ### # Point of Care testing , DRUG SCREEN,URINE Collected: 04/29/2024 5:13 PM Stat us: F Source: [facility] TYPE CODE TESTS RESULT OUT OF RANGE [...] 25 ng/mL THC 20 ng/mL PERFORMED BY: [place] [address] PATHOLOGIST BINDERY CUTTER OPERATOR LE MACE M.D. Performed By: #### URDS, CUU #### [place] [id number] [facility] URINE CULTURE Observed: 04/29/2024 5:13 PM Status: F Source: [facility] 15,000 colonies/ml mixed bacterial skin contaminants 2 Days PERFORMED BY: [place] [address] PATHOLOGIST BINDERY CUTTER OPERATOR LE MACE M.D. Performed By: #### URDS, CUU #### [address] [address] [facility] GLUCOSE POCT GLUCOMETERS Collected: 04/29/2024 4:12 P M Status: F Source: [facility] TYPE CODE TESTS RESULT OUT OF RANGE REFERENCE UNITS LAB GLUPOC Glucose Poc Glucometers 188 mg/dL Result Comment: Random Gluco se Reference Range is dependent on time and content of last meal. Glucose of more than 200 mg/dL in a nonstressed, ambulatory subject supports the diagnosis of Diabetes Mellitus. LAB COMM1 Commemt1 Glu2: Cleaned Meter Result Comment: PERFORMED BY : [address] [address] PATHOLOGIST BINDERY CUTTER OPERATOR LE MACE M.D. Performed By: #### GLULS ### # Point of Care testing , GLUCOSE POCT GLUCOMETERS Collected: 04/29/2024 11:34 AM Status: F Source: [facility] TYPE CODE TESTS RESULT OUT OF RANGE REFERENCE UNITS LAB GLUPOC Glucose Poc Glucometers 192 mg/dL Result Comment: Random Gluco se Reference Range is dependent on time and content of last meal. Glucose of more than 200 mg/dL in a nonstressed, ambulatory subject supports the diagnosis of Diabetes Mellitus. LAB COMM1 Commemt1 Glu2: Cleaned Meter Result Comment: PERFORMED BY : [address] [address] PATHOLOGIST BINDERY CUTTER OPERATOR LE MACE M.D. Performed By: #### GLULS ### # Point of Care testing , GLUCOSE POCT GLUCOMETERS Collected: 04/29/2024 6:24 A M Status: F Source: [facility] TYPE CODE TESTS RESULT OUT OF RANGE REFERENCE UNITS LAB GLUPOC Glucose Poc Glucometers 210 mg/dL Result Comment: Random Gluco se Reference Range is dependent on time and content of last meal. Glucose of more than 200 mg/dL in a nonstressed, ambulatory subject supports the diagnosis of Diabetes Mellitus. PERFORMED BY: [address] [address] PATHOLOGIST BINDERY CUTTER OPERATOR LE MACE M.D. Performed By: #### GLULS ### # Point of Care testing , BASIC METABOLIC PANEL Collected: 04/29/2024 6:10 AM Status: F Source: [facility] Order Comment: FASTING N TYPE CODE TESTS [...] Performed By: #### LIPID, BM P #### [facility] [address] [place] [address] LIPID PANEL Collected: 04/29/2024 6:10 AM Status: F Source: [facility] Order Comment: FASTING N TYPE CODE TESTS [...] 3.4 <5.0 Result Comment: PERFORMED BY : [address] [address] PATHOLOGIST BINDERY CUTTER OPERATOR LE MACE M.D. Performed By: #### LIPID, BM P #### [address] [address] [facility] DIPSTICK AND MICROSCOPIC Collected: 10:02 PM Status: F Source: [facility] Order Comment: Name Collecti on Type:: Clean-Voided Midstream TYPE CODE TESTS RESULT OUT OF RANGE REFERENCE UNITS LAB UCOL Color,Urine Light-Yellow Yellow LAB UAPP Appearance,Uri ne Clear Clear LAB USG Specificy Warren,Urine 1.038 High 1.001-1.030 LAB UPH pH,Urine 5.5 Normal 5.0-9.0 LAB ULE Leukocyte Esterase,Urine Negative Negative LAB UNIT Nitrite,Urine Negative Negative LAB UPRO Protein,Urine Negative Negative LAB UGL Glucose,Urine (UA) >= High Normal mg/dL LAB UKET Ketones,Urine Negative Negative LAB UURO Urobilinogen,U rine Normal Normal LAB UBIL Bilirubin,Urin e Negative Negative LAB UBLD Occult Blood,Urine 2+ High Negative Result Comment: PERFORMED BY : [address] [place] [address] PATHOLOGIST BINDERY CUTTER OPERATOR LE MACE M.D. LAB URBC RBC,Urine 10 High 0-4 [HPF] LAB UWBC WBC,Urine 5 High 0-4 [HPF] LAB USQEPI Squamous Epithelial Cell,Urine 3 High 0-2 [HPF] LAB UBACT Bacteria,Urine Rare None Seen LAB UHYALC Hyaline Casts,Urine 0 0-8 [LPF] LAB URBY Budding Yeast,Urine Rare High None Seen Result Comment: PERFORMED BY : [address] [place] [address] PATHOLOGIST BINDERY CUTTER OPERATOR LE MACE M.D. Performed By: #### ADDONUAPL #### [address] XR CHEST 2V* Observed: 04/28/2024 9:44 PM Status: COMPLETED Source: [place] [address] XRay Report Signed Patient: Kerry Marcos MR#: [id number] 19 : 1955 Acct:[id number] Age/Sex: 68 / F ADM Date: 04/28/24 Loc: ER Room: Type: [facility] ER Attending Dr: Copies to: Wesley [...] Oz Bowling M.D.04/28/2024 9:46 PM Dictation Location: [place] [address] Transcribed By: [facility] 04/28/242145 Dictated By: Oz Bowling II, MD 04/28/242143 Signed By: <Electronically signed by Oz Bowling II, MD in OV> 04/28/242145 CT ANGIO HEAD Observed: 04/28/2024 9:30 PM Status: COMPLETED Source: [place] [address] CT Scan Report Signed Patient: Kerry Marcos MR#: [id number] 19 : 1955 Acct:[id number] Age/Sex: 68 / F ADM Date: 04/28/24 Loc: ER Room: Type: [facility] ER Attending Dr: Copies to: Wesley Villafuerte PA-C Ordering Provider: Wesley Villafuerte PA-C Date of Service: 04/28/24 CT/CT angio head: weakness ([id number]) CT/CT angio neck: weakness ([id number]) CT/CT head/brain wo con: weakness CT head/brain [...] Oz Bowling M.D.04/28/2024 9:44 PM Dictation Location: [place] [address] Transcribed By: [facility] 04/28/242143 Dictated By: Oz Bowling II, MD 04/28/242129 Signed By: <Electronically signed by Oz Bowling II, MD in OV> 04/28/242143 RESPIRATORY (UPPER) PANEL, PCR Observed: 04/28/2024 8:19 PM Status: F Source: [facility] Adenovirus Not detected Bordetella parapertussis Not detected [...] Influenza A H3 Blank Space PERFORMED BY: [place] [address] PATHOLOGIST BINDERY CUTTER OPERATOR LE MACE M.D. Performed By: #### RESP PANE L UPP., BIOFIRECOVNOTDE #### [address] BIOFIRE NOT DETECTED Collected: 04/28/2024 8:19 PM S tatus: F Source: [facility] TYPE CODE TESTS RESULT OUT OF RANGE REFERENCE UNITS LAB BIOFIRECOVNOTDE BioFire Not Detected Not Detected Not Detecte Result Comment: This is a du plicate RP2.1 COVID (PCR) result to be used for statistical tracking purpose only. PERFORMED BY: [place] [address] PATHOLOGIST BINDERY CUTTER OPERATOR LE MACE M.D. Performed By: #### RESP PANE L UPP., BIOFIRECOVNOTDE #### [address] B-TYPE NATRIURETIC PEPTIDE Collected: 04/28/2024 7:54 PM Status: F Source: [facility] TYPE CODE TESTS RESULT OUT OF RANGE REFERENCE UNITS LAB BNP B-Type Natriuretic Peptide 25.0 Normal 5-100 pg/mL Result Comment: PERFORMED BY : [place] [address] PATHOLOGIST BINDERY CUTTER OPERATOR LE MACE M.D. Performed By: #### SCAN CBC, PTT, BNP, PT, MG, CMP, HS TROP #### [address] COMPREHENSIVE METABOLIC PANEL Collected: 04/28/2024 7 :54 PM Status: F Source: [facility] TYPE CODE TESTS RESULT OUT OF RANGE [...] BNP, PT, MG, CMP, HS TROP #### [facility] [facility] [address] [id number] [facility] MAGNESIUM Collected: 4 7:54 PM Status: F Source: [facility] TYPE CODE TESTS RESULT OUT OF RANGE REFERENCE UNITS LAB MG Magnesium 1.7 Low 1.9-2.7 mg/dL Result Comment: PERFORMED BY : [place] [address] PATHOLOGIST BINDERY CUTTER OPERATOR LE MACE M.D. Performed By: #### SCAN CBC, PTT, BNP, PT, MG, CMP, HS TROP #### [facility] [address] [id number] [place] TROPONIN I HIGH SENSITIVITY Collected: 04/28/2024 7:5 4 PM Status: F Source: [facility] TYPE CODE TESTS RESULT OUT OF RANGE REFERENCE UNITS LAB HS TROP Troponin I High Sensitivity 5.1 Normal 0.0-15.0 pg/mL Result Comment: PERFORMED BY : [address] [place] [address] PATHOLOGIST BINDERY CUTTER OPERATOR LE MACE M.D. Performed By: #### SCAN CBC, PTT, BNP, PT, MG, CMP, HS TROP #### [facility] [address] [place] [address] [facility] PROTHROMBIN TIME INR Collected: 04/28/2024 7:54 PM S tatus: F Source: [facility] TYPE CODE TESTS RESULT OUT OF RANGE REFERENCE UNITS LAB R PT Prothrombin Time 15.1 High 9.0-12.9 s Result Comment: A hematocrit value greater than 55% may lead to inaccurate results in coagulation testing. Patients having hematocrit values >55% require a special collection tube for coagulation studies. Please contact the laboratory at [phone] for redraw instructions. LAB INR INR 1.3 [...] BNP, PT, MG, CMP, HS TROP #### [facility] [address] [place] [address] [place] PARTIAL THROMBOPLASTIN TIME Collected: 04/28/2024 7:5 4 PM Status: F Source: [facility] TYPE CODE TESTS RESULT OUT OF RANGE REFERENCE UNITS LAB PTT Partial Thromboplastin Time 30.0 Normal 25.1-36.5 s Result Comment: A hematocrit value greater than 55% may lead to inaccurate results in coagulation testing. Patients having hematocrit values >55% require a special collection tube for coagulation studies. Please contact the laboratory at [phone] for redraw instructions. PERFORMED BY: [facility] [address] [place] [address] PATHOLOGIST BINDERY CUTTER OPERATOR LE MACE M.D. Performed By: #### SCAN CBC, PTT, BNP, PT, MG, CMP, HS TROP #### [facility] [address] [id number] [facility] SCAN AND CBC Collected: 04/28/2024 7:54 PM Status: F Source: [facility] TYPE CODE TESTS RESULT OUT OF RANGE [...] Normal Normal Result Comment: PERFORMED BY : [place] [address] PATHOLOGIST BINDERY CUTTER OPERATOR LE MACE M.D. Performed By: #### SCAN CBC, PTT, BNP, PT, MG, CMP, HS TROP #### [facility] [address] [place] [address] ECG 12 LEAD ECG Observed: 04/28/2024 7:33 PM Status: COMPLETED Source: [facility] [place] [address] Electrocardiograph Report Signed Patient: Kerry Marcos MR#: [id number] 19 : 1955 Acct:[id number] Age/Sex: 68 / F ADM Date: 04/28/24 Loc: Room: [address] [place] [address] Type: ADM IN Attending Dr: Jori Hearn [...] Observed: 04/27/2024 2:27 PM Status: COMPLETED Source: [facility] [place] [address] Electrocardiograph Report Signed Patient: Kerry Marcos MR#: [id number] [birth year] : 1955 Acct:[id number] Age/Sex: 68 / F ADM Date: 04/27/24 Loc: ER Room: Type: [facility] ER Attending Dr: Ordering Provider: Reynold Daily DO Date of Service: 04/27/24 ECG/ECG [...] No significant change was found Confirmed by REYNOLD DAILY DO ([id number]) on 04/28/2024 2:19:46 AM Referred By: Electronically Signed By: REYNOLD DAILY DO Transcribed By: MUS Signed By Reynold Daily DO 0219 COMPLETE BLOOD COUNT AUTO DIFF Collected: 04/14/2024 10:48 AM Status: F Source: [facility] TYPE CODE TESTS RESULT OUT OF RANGE [...] 0.0-0.2 10*3/uL Result Comment: PERFORMED BY : [place] [address] PATHOLOGIST BINDERY CUTTER OPERATOR LE MACE M.D. Performed By: #### CMP, LDH, PATH SLIDE REV, CBC #### [address] COMPREHENSIVE METABOLIC PANEL Collected: 04/14/2024 1 0:48 AM Status: F Source: [facility] TYPE CODE TESTS RESULT OUT OF RANGE [...] CMP, LDH, PATH SLIDE REV, CBC #### [address] [id number] [facility] LDH LACTATE DEHYDROGENASE Collected: 04/14/2024 10:48 AM Status: F Source: [facility] TYPE CODE TESTS RESULT OUT OF RANGE REFERENCE UNITS LAB LDH LDH Lactate Dehydrogenase 155 Normal 140-271 U/L Result Comment: PERFORMED BY : [address] [id number] PATHOLOGIST BINDERY CUTTER OPERATOR LE MACE M.D. Performed By: #### CMP, LDH, PATH SLIDE REV, CBC #### [address] [address] [facility] PATHOLOGIST SLIDE REVIEW Collected: 04/14/2024 10:48 AM Status: F Source: [facility] TYPE CODE TESTS RESULT OUT OF RANGE REFERENCE UNITS LAB PATH SLIDE REV Pathologist Slide Review Ordered Path Review Result Comment: PERFORMED BY : [address] [address] PATHOLOGIST BINDERY CUTTER OPERATOR LE MACE M.D. Performed By: #### CMP, LDH, PATH SLIDE REV, CBC #### [address] [address] [place] L Observed: 04/14/2024 12:00 AM Status: F Source: [facility] ----- ------- Specimen: [id number] Received: 04/14/24 Status: FIDEL Knox Num: [id number] Spec Type: Impression Subm Dr: Nataliya Jane APRN Tissues: PATHPER Procedures: PATHREVIEW ----- ------- Age/ Patient Sex Location Account Attending Physician ----- ------- Kerry Marcos 68/F XT [id number] Nataliya Jane APRN ----- ------- SPEC NUM: [id number] RECD: 04/14/24 STATUS: FIDEL KNOX NUM: [id number] RONNY: 04/14/24- SUBM DR: Nataliya Jane APRN ENTERED: 04/14/[address]: SPEC TYPE: Impression DEPT: [place] ENTERED BY: [id number] RECV BY: [id number] ORDERED: PATHREVIEW ORDERED: PATHREVIEW Pathologist Review Abnormal [...] chronic smoking. Clinical correlations are suggested CPT: 92732 ----- ------- Specimen: [id number] Received: 04/14/24 Status: FIDEL Leontaylor Num: [id number] Spec Type: Impression Subm Dr: Nataliya Jane APRN Tissues: PATHPER Procedures: PATHREVIEW ----- ------- Patient: Kerry Marcos [id number] (Continued) ----- ------- Specimen: [id number] Received: 04/14/24 (Continued) Signed (signature on file) Nereyda Holt MD 04/15/24 0920 ----- ------- Specimen: [id number] Received: 04/14/24 Status: FIDEL Knox Num: [id number] Spec Type: Impression Subm Dr: Nataliya Jane APRN Tissues: PATHPER Procedures: PATHREVIEW ----- ------- Patient: Kerry Marcos [id number] (Continued) ----- ------- Specimen: [id number] Received: 04/14/24 [...] % Lymp % (Auto) 19.3 . % Bibb % (Auto) 8.7 . % Eos % (Auto) 2.6 . % Baso % (Auto) 0.6 . % NRBC% 0.1 0-0.5 /100 WBC Neut # (Auto) 7.3 1.8-7.7 x10E3/uL Lymph # (Auto) 2.1 1.00-4.8 x10E3/uL Bibb # (Auto) 0.9 H 0.0-0.8 x10E3/uL Eos # (Auto) 0.3 0.0-0.45 x10E3/uL Baso# (Auto) 0.1 0.0-0.2 x10E3/uL ----- ------- ----- ------- Specimen: [id number] Received: 04/14/24 Status: FIDEL Knox Num: [id number] Spec Type: Impression Subm Dr: Nataliya Jane APRN Tissues: PATHPER Procedures: PATHREVIEW ----- ------- Patient: Kerry Marcos Vamsi [id number] (Continued) ----- ------- Signed (signature on file) Tyrone-Fer Holt MD 04/15/24 0920 ALLERGIES DATE TYPE / CODE NAME / CODE REACTION SEVERITY SOURCE 01/12/2025 Drug Allergy/895864 002(SNOMED CT) Sulfa (Sulfonamide Antibiotics)/F 750032766(RXNO RM) Vomiting Unknown [facility] 01/12/2025 Drug Allergy/636467 002(SNOMED CT) pioglitazone/F 346530976(RXNO RM) leg edema Mild (Qualifier Value) [facility] 2018 Drug Class/61425641 3(SNOMED CT) SULFA (SULFONAMIDE ANTIBIOTICS) [facility] ENCOUNTERS ADMIT/DISCHARGE ACCOUNT NUMBER ADMITTING ENCOUNTER CLASS LOCATION SOURCE 01/19/2025/01/20/20 [id number] Ambulatory Building:NOM S NEURO [facility] EPIC 12/31/2024/01/01/20 [id number] Ambulatory Building:FNR MR [facility] EPIC 12/30/2024/12/31/19 [id number] Ambulatory Building:DOT [id number] [facility] Ambulatory 12/24/2024/12/25/19 [id number] Shikha Medina [facility] 12/18/2024/12/19/19 25 [id number] Ambulatory Building:NOM S NEURO [facility] EPIC 12/11/2024/12/12/19 25 [id number] Ambulatory Building:NOM S NEURO [facility] EPIC 11/23/2024/11/24/19 25 [id number] Ambulatory Building:NOM S SWS POD [facility] EPIC 11/16/2024/11/17/19 25 [id number] [facility] 11/16/2024/11/17/19 25 [id number] Ambulatory Building:NOM S SWS POD [facility] EPIC 11/09/2024/11/10/19 25 [id number] [place] 10/20/2024/10/21/19 [id number] Ambulatory Building:NOM S SWS POD [facility] EPIC 10/06/2024/10/07/19 25 [id number] Ambulatory Building:NOM S NEURO [facility] EPIC 10/05/2024/10/06/19 25 [id number] Ambulatory PM [place]:PM [facility] 09/10/2024/09/11/19 [id number] Asaad, Imad [facility] 07/22/2024/07/23/19 [id number] Tray Nava [facility] 07/21/2024/07/22/19 25 [id number] Ambulatory Building:NOM S NEURO [facility] EPIC 07/06/2024/07/07/19 25 [id number] Deneen Frost [facility] 06/26/2024 [id number] Nataliya Jane [facility]LOR[facility] 06/26/2024/06/26/19 25 [id number] Govind Thuan Ambulatory [facility] ng:LA [facility] 06/26/2024/06/26/19 25 [id number] Ambulatory Building:DOT [id number] [facility] 05/25/2024/05/25/19 25 [id number] Sandra Lewis Ambulatory [facility] ng:MR [facility] 04/28/2024/04/30/19 25 [id number] Jori Hearn Inpatient Encounter [facility] nTRoom: [id number]: 2 [facility] 04/27/2024/04/27/20 24 [id number] Reynold Daily Emergency [facility] ng:EDWRRoom: EDUTIT [facility] 04/08/2024/04/08/20 24 [id number] Ambulatory Building:NOM S SWS POD [facility] EPIC 04/07/2024/04/07/20 24 [id number] Ambulatory Building:NOM S NEURO [facility] EPIC 03/25/2024/03/25/20 24 [id number] Ambulatory Building:DOT [id number] Ambulatory 02/25/2024/02/25/20 24 [id number] Ambulatory Building:NOM S NEURO [facility] EPIC 02/14/2024/02/14/20 24 [id number] Asaad, Imad Ambulatory [facility] ng:[facility] 02/10/2024/02/10/20 24 [id number] Ambulatory Building:NOM S SWS POD [facility] EPIC PAYERS ENCOUNTER GUARANTOR PAYER SUBSCRIBER SOURCE 01/19/2025 KERRY CHEEKNDOB: [place], [place] [address]Lfx: () Primary Insurance:[facility] MEDICAREPolicy Number: [id number] Date:2022-04-29 KERRY HOLLYATONDOB: [id number] [place] [address] [facility] EPIC 01/19/2025 Secondary Insurance:[place] Number: [id number] Date:2021-07-28 KERRY HOLLYATONDOB: [id number] [place] [address] [facility] EPIC 12/31/2024 KERRY HOLLYATONDOB: [place], [place] [address]Oez: (HP) Primary Insurance:[facility] MEDICAREPolicy Number: [id number] Date:2022-04-29 KERRY HOLLYATONDOB: [id number] [place] [address] [facility] EPIC 12/31/2024 Secondary Insurance:[place]Policy Number: [id number] Date:2021-07-28 KERRY HOLLYATONDOB: [id number] [place] [address] [facility] EPIC 12/30/2024 KERRY HOLLYATONDOB: [place], [place] [address]Elg: (HP) Primary Insurance:MEDICAIDPoli cy Number: [id number] Date:2024-06-27 KERRY HOLLYATONDOB: [id number] [place], [place] [address]Ebc: () [facility] 12/30/2024 Secondary Insurance:[facility] DUAL COMPLETEPolicy Number: [id number] Date:2023-04-29 KERRY HOLLYATONDOB: [id number] [place], [place] [address]Qym: (HP) [facility] 12/24/2024 Kerry Hollyaton[address] [place] [address]Jdp: (HP) Primary Insurance:[facility] Dual ComplPolicy Number: [id number] Date:7809-96-59FP[address] [address]YW: Kerry HollyatonDOB: [id number] [place] [address]Fzl: (HP) [facility] 12/24/2024 Secondary Insurance:MedicaidPoli cy Number: [id number] Date:2024-10-01 Kerry HollyatonDOB: [id number] [place] [address]Fez: (HP) [facility] 12/24/2024 Tertiary Insurance:Self PayPolicy Number: Effective Date:2024-10-01 [facility] 12/18/2024 KERRY HOLLYATONDOB: [place], [place] [address]Kfw: (HP) Primary Insurance:[facility] MEDICAREPolicy Number: [id number] Date:2022-04-29 KERRY HOLLYATONDOB: 2492-22-21RBY945 [place] [address] [facility] EPIC 12/18/2024 Secondary Insurance:MEDICAID [place]Policy Number: [id number] Date:2021-07-28 KERRY HOLLYATONDOB: [id number] [place] [address] [facility] EPIC 12/11/2024 KERRY HOLLYATONDOB: [place], [place] [address]Dtw: () Primary Insurance:[facility] MEDICAREPolicy Number: [id number] Date:2022-04-29 KERRY HOLLYATONDOB: [id number] [place] [address] [facility] EPIC 12/11/2024 Secondary Insurance:[place]Policy Number: [id number] Date:2021-07-28 KERRY HOLLYATONDOB: [id number] [place] [address] [facility] EPIC 11/23/2024 KERRY Vamsi AVNIATONDOB: [place], [place] [address]Pjq: (HP) Primary Insurance:[facility] MEDICAREPolicy Number: [id number] Date:2022-04-29 KERRY HOLLYATONDOB: 5134-02-61AJQ888 [place] [address] [facility] EPIC 11/23/2024 Secondary Insurance:[place]Policy Number: [id number] Date:2021-07-28 KERRY HOLLYATONDOB: [id number] [place] [address] [facility] EPIC 11/16/2024 Kerry [address]aton[address] [place] [address]Yxw: (HP) Primary Insurance:[facility] Dual ComplPolicy Number: [id number] Date:2606-14-35PX[address] [address]SM: Kerry HollyatonDOB: 5365-27-76MIK707 [address] [address]Tel: (HP) [facility] 11/16/2024 Secondary Insurance:MedicaidPoli cy Number: [id number] Date:2024-11-16 Kerry HollyatonDOB: 7694-58-55DVU745 [place] [address]Lua: (HP) [facility] 11/16/2024 Tertiary Insurance:Self PayPolicy Number: Effective Date:2024-11-16 [facility]EN[facility] 11/16/2024 KERRY HOLLYATONDOB: [place], [place] [address]Ous: (HP) Primary Insurance:[facility] MEDICAREPolicy Number: [id number] Date:2022-04-29 KERRY HOLLYATONDOB: 1227-31-26GTQ558 [place] [address] [facility] 11/16/2024 Secondary Insurance:MEDICAID [place]Policy Number: [id number] Date:2021-07-28 KERRY HOLLYATONDOB: [id number] [place] [address] [facility] 11/09/2024 Kerry HollyatonDOB: [place] [address] Primary Insurance:[employer] Medicare SolutionsPolicy Number: Effective Date:1515-50-60Aibt Name:MEDP [address] [address], [place] [address]MP: Kerry HollyatonDOB: [id number] [place] [address] [facility] 11/09/2024 Secondary Insurance:MedicaidPoli cy Number: Effective Date:8513-41-91Wynr Name:MEDCP [address], [place] [address]PE: Kerry HollyatonDOB: 2106-89-99CBA397 [place] [address] [facility] 10/20/2024 KERRY HOLLYATONDOB: [place], [place] [address]Loo: (HP) Primary Insurance:[employer] MEDICAREPolicy Number: [id number] Date:2022-04-29 KERRY HOLLYATONDOB: 1809-12-13FUY830 [place] [address] [facility] EPIC 10/20/2024 Secondary Insurance:MEDICAID [place]Policy Number: [id number] Date:2021-07-28 KERRY HOLLYATONDOB: [id number] [place] [address] [facility] 10/06/2024 KERRY HOLLYATONDOB: [place], [place] [address]Cij: (HP) Primary Insurance:[employer] MEDICAREPolicy Number: [id number] Date:2022-04-29 KERRY HOLLYATONDOB: 7008-08-04LZQ988 [place] [address] [facility] 10/06/2024 Secondary Insurance:MEDICAID [place]Policy Number: [id number] Date:2021-07-28 KERRY HOLLYATONDOB: [id number] [place] [address] [facility] 10/05/2024 Kerry Agustin AvniatonDOB: [place] [address] Primary Insurance:[facility] Medicare SolutionsPolicy Number: Effective Date:3357-83-87Oboj Name:MEDP [address] [address], [place] [address]ZA: Kerry HollyatonDOB: [id number] [place] [address] [facility] 10/05/2024 Secondary Insurance:MedicaidPoli cy Number: Effective Date:7680-90-15Smla Name:MEDCP [address] [address]MJ: Kerry HollyatonDOB: 6073-69-53QRB358 [place] [facility] [address] [facility] 09/10/2024 Kerry Hollyaton[address] [place] [address]Pea: (HP) Primary Insurance:[facility] Dual ComplPolicy Number: [id number] Date:3833-97-68JQ[address] [address]EJ: Kerry HollyatonDOB: 2042-59-61GEA414 [place] [address]Cgq: (HP) [facility] 09/10/2024 Secondary Insurance:MedicaidPoli cy Number: [id number] Date:2024-08-26 Kerry HollyatonDOB: 7973-59-21KYA637 [place] [address]Mrr: (HP) [facility] 09/10/2024 Tertiary Insurance:Self PayPolicy Number: Effective Date:2024-09-08 [facility]EN[facility] 07/22/2024 Kerry Hollyaton[address] [place] [address]Esb: (HP) Primary Insurance:[facility] PFFSPolicy Number: [id number] Date:8984-29-83VH[address] [address]OF: Kerry HollyatonDOB: 5281-69-65ZTW604 [place] [address]Vld: () [facility] 07/22/2024 Secondary Insurance:MedicaidPoli cy Number: [id number] Date:2023-07-18 Kerry HollyatonDOB: 1087-89-28NIV978 [place] [address]Tel: (HP) [facility] 07/22/2024 Tertiary Insurance:MedicarePoli cy Number: [id number] Date:2023-07-18 Kerry HollyatonDOB: 9950-09-26GFP865 [place] [address]Kyb: () [facility] 07/22/2024 Tertiary Insurance:Self PayPolicy Number: Effective Date:2024-07-22 [facility]EN[facility] 07/21/2024 KERRY HOLLYATONDOB: [place], [place] [address]Pcj: () Primary Insurance:[facility] MEDICAREPolicy Number: [id number] Date:2022-04-29 KERRY HOLLYATONDOB: 8676-20-82VXL976 [place] [address] [facility] 07/21/2024 Secondary Insurance:MEDICAID [place]Policy Number: [id number] Date:2021-07-28 KERRY CHEEKNDOB: 4406-10-80RPW412 [place] [address] [facility] 07/06/2024 Kerry [address] [address]Msz: (HP) Primary Insurance:Self PayPolicy Number: Effective Date:2024-07-06 [facility]EN[facility] 06/26/2024 Kerry Cheekn[address] [place] [address]Eol: (HP) Primary Insurance:[facility] Dual ComplPolicy Number: [id number] Date:1161-15-49YQ [address] [address]ZP: Kerry CheeknDOB: 8309-16-93VXO295 [place], [facility]Jya: () [facility] 06/26/2024 Secondary Insurance:MedicaidPoli cy Number: [id number] Date:2024-04-10 Kerry HollyatonDOB: 1275-59-67IMO876 [place], [facility]Hbt: () [facility] 06/26/2024 Tertiary Insurance:Self PayPolicy Number: Effective Date:2024-04-10 [facility]EN[facility] 06/26/2024 Kerry Che[address] [place], [facility]Udm: (HP) Primary Insurance:[facility] Dual ComplPolicy Number: [id number] Date:7346-76-19LR [address] [address]ET: Kerry HollyatonDOB: 6493-45-57PQJ639 [place] [address]Ced: () [facility] 06/26/2024 Secondary Insurance:MedicaidPoli cy Number: [id number] Date:2024-05-07 Kerry HollyatonDOB: 6534-69-87FEH385 [place] [address]Fqt: () [facility] 06/26/2024 Tertiary Insurance:Self PayPolicy Number: Effective Date:2024-05-07 NOT GIVENUNK [facility] 06/26/2024 KERRY HOLLYATONDOB: [place], [place] [address]Dog: (HP) Primary Insurance:[facility] DUAL COMPLETEPolicy Number: [id number] Date:2023-04-29 KERRY HOLLYATONDOB: 5729-73-73JPW127 [place], [place] [address]Xtb: () [facility] 05/25/2024 Kerry Hollyaton[address] [place] [address]Ipk: () Primary Insurance:[employer] [facility] Dual ComplPolicy Number: [id number] Date:8894-90-80QY[address] [address]CU: Kerry HollyatonDOB: 6810-61-74PZL178 [place] [address]Ljl: () [facility] 05/25/2024 Secondary Insurance:MedicaidPoli cy Number: [id number] Date:2024-05-08 Kerry HollyatonDOB: 7828-81-77EVZ887 [place] [address]Qwf: () [facility] 05/25/2024 Tertiary Insurance:Self PayPolicy Number: Effective Date:2024-05-19 NOT GIVENUNK [facility] 04/28/2024 Kerry Hollyaton[address] [place] [address]Hws: () Primary Insurance:[employer] Dual ComplPolicy Number: [id number] Date:8407-61-66DN [address] [address]VS: Kerry HollyatonDOB: 7621-90-51BAN176 [place] [address]Gak: () [facility] 04/28/2024 Secondary Insurance:MedicaidPoli cy Number: [id number] Date:2024-04-28 Kerry HollyatonDOB: 2272-40-33MCZ072 [place] [address]Eaw: () [facility] 04/28/2024 Tertiary Insurance:MedicarePoli cy Number: [id number] Date:2024-04-28 Kerry HollyatonDOB: 4984-21-25ZUG130 [place] [address]Ssm: () [facility] 04/28/2024 Tertiary Insurance:Self PayPolicy Number: Effective Date:2024-04-28 [facility]EN[facility] 04/27/2024 Kerry Hollyaton[address] [place] [address]Dww: () Primary Insurance:[facility] Dual ComplPolicy Number: [id number] Date:9799-67-85VY [address] [address]MF: Kerry HollyatonDOB: 8695-28-40SNY202 [place] [address]Hgh: () [facility] 04/27/2024 Secondary Insurance:MedicaidPoli cy Number: [id number] Date:2024-04-27 Kerry HollyatonDOB: 0134-76-94WVL294 [place] [address]Fgg: () [facility] 04/27/2024 Tertiary Insurance:Self PayPolicy Number: Effective Date:2024-04-27 [facility]EN[facility] 04/08/2024 KERRY HOLLYATONDOB: [place], [place] [address]Thx: (HP) Primary Insurance:[facility] MEDICAREPolicy Number: [id number] Date:2022-04-29 KERRY HOLLYATONDOB: 8341-70-57AQP502 [place] [address] [facility] 04/08/2024 Secondary Insurance:MEDICAID [place]Policy Number: [id number] Date:2021-07-28 KERRY HOLLYATONDOB: [id number] [place] [address] [facility] EPIC 04/07/2024 KERRY HOLLYATONDOB: [place], [place] [address]Bjp: () Primary Insurance:[facility] MEDICAREPolicy Number: [id number] Date:2022-04-29 KERRY HOLLYATONDOB: [id number] [place] [address] [facility] EPIC 04/07/2024 Secondary Insurance:[place] Number: [id number] Date:2021-07-28 KERRY HOLLYATONDOB: [id number] [place] [address] [facility] EPIC 03/25/2024 KERRY HOLLYATONDOB: [place], [place] [address]Gef: (HP) Primary Insurance:MEDICAIDPoli cy Number: [id number] Date:2021-07-28 KERRY HOLLYATONDOB: [id number] [place], [place] [address]Ayj: (HP) [facility] 03/25/2024 Secondary Insurance:[facility] DUAL COMPLETEPolicy Number: [id number] Date:2023-04-29 KERRY HOLLYATONDOB: [id number] [place], [place] [address]Pks: (HP) [facility] 02/25/2024 KERRY HOLLYATONDOB: [place], [place] [address]Qpu: (HP) Primary Insurance:[facility] MEDICAREPolicy Number: [id number] Date:2022-04-29 KERRY HOLLYATONDOB: [id number] [place] [address] [facility] 02/25/2024 Secondary Insurance:[place] Number: [id number] Date:2021-07-28 KERRY HOLLYATONDOB: [id number] [place] [address] [facility] 02/14/2024 Kerry Hollyaton222 [place] [address]Vps: () Primary Insurance:Self PayPolicy Number: Effective Date:2024-02-14 [facility] 02/10/2024 KERRY HOLLYATONDOB: [place], [place] [address]Gon: (HP) Primary Insurance:[facility] MEDICAREPolicy Number: [id number] Date:2022-04-29 KERRY HOLLYATONDOB: [id number] [place] [address] [facility] 02/10/2024 Secondary Insurance:[place]Policy Number: [id number] Date:2021-07-28 KERRY Agustin AVNIATONDOB: [id number] [place] [address] [facility] EPIC
--- OUTSIDE RECORDS SUMMARY | 2025-01-27 06:31 | XMS_ITS | Clinical Summary ---
Author Organization [facility] Address [address] [place] [address] Care Team Providers Care Industrial Eng Name Role Phone Sandra Lewis DO Primary Care Provider [phone] Allergies Active Allergy Reactions Criticality Noted Date Comments Sulfa Antibiotics GI intolerance,Unknown 2018 Medications Continuous Blood Gluc Sensor (SpeakingPalStyle Brent 14 Day Sensor) [facility] apply 1 SENSOR as directed every 14 days use with DEVICE to MONIT... (REFER TO PRESCRIPTION NOTES). 3 Active Toujeo SoloStar 300 UNIT/ML injection inject 20 units subcutaneously as directed 3 Active Droplet Pen Bowlus 32G X 4 MM [facility] use 1 PEN NEEDLE to inject MEDICATION [...] (07/21/2024 3:08 PM EDT): (Continue current regimen.) [facility] records - neuro consults, EEG, MR, carotids, echo, discharge summary. Assessment & Plan (04/07/2024 2:16 PM EST): Pt to retry donepezil 15 qam (or 10/5). Assessment & Plan (02/25/2024 2:59 PM EDT): Add memantine 10 -> bid. Then add donepezil 10, titrate. Handout. Get MR images transferred to [facility] PACS for my review. Guyon [...] neuropathy, worsening. Get full set of labs ([facility]). We have some but not all [...] Encounters Date Type Department Care Team Description 01/26/2025 Telephone [facility] [place] [facility] [address] [facility] [address] [place] [address] Nereida Castro MD 01/19/2025 4:00 PM EDT Office Visit [facility] [place] [facility] [address] [facility] [address] [place] [address] Luan Kincaid MD Weakness of both lower extremities (Primary Dx); Carpal tunnel syndrome, bilateral; Cognitive decline; Cervical paraspinal muscle spasm; B12 deficiency; Guyon syndrome, unspecified laterality 01/19/2025 Bamboo flowsheet [facility] [address] [place] [address] Luan Kincaid MD 01/19/2025 Travel 12/31/2024 4:00 PM EDT Ancillary Procedure [facility] [address] [facility] [address] [place] [address] Lumbosacral radiculopathy at L5; Weakness of both lower extremities; Leg pain, bilateral 12/31/2024 Travel 12/18/2024 1:15 PM EDT Procedure Visit [facility] [place] [facility] [address] [facility] [address] [place] [address] Luan Kincaid MD Numbness (Primary Dx); Paresthesias; Pain in both lower extremities; Lumbosacral radiculopathy at L5 12/18/2024 Orders Only [facility] [place] [facility] [address] [facility] [address] [place] [address] Luan Kincaid MD Lumbosacral radiculopathy at L5; Weakness of both lower extremities; Leg pain, bilateral 12/18/2024 Travel 12/11/2024 1:15 PM EDT Procedure Visit [facility] [place] [facility] [address] [place] [address] Luan Kincaid MD Hand weakness (Primary Dx); Carpal tunnel syndrome, bilateral 12/11/2024 Travel 11/30/2024 Telephone [facility] [place] [facility] [address] [place] [address] Maureen Fritz DPM Error (VOID this visit) 11/23/2024 2:45 PM EDT Office Visit [facility] [place] [facility] [address] [place] [address] Maureen Fritz DPM Ulcer of right foot with fat layer exposed (HCC) (Primary Dx); 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); Abscess of right foot; At increased risk for emergency hospital admission 11/23/2024 Bamboo flowsheet [facility] [place] [facility] [address] [place] [address] Maureen Fritz DPM 11/23/2024 Travel 11/20/2024 Telephone [facility] [address] [place] [address] Beatrice Boyd MA HH Orders Clarification 11/18/2024 Telephone [facility] [place] [facility] [address] [place] [address] Beatrice Boyd MA HH Orders 11/18/2024 Telephone [facility] [place] [facility] [address] [place] [address] Maureen Fritz DPM 11/16/2024 4:00 PM EDT Office Visit [facility] [place] [facility] [address] [place] [address] Maureen Fritz DPM Ulcer of right foot with fat layer exposed (HCC) (Primary Dx); 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); Cellulitis of right foot; Deformity of toe, right 11/16/2024 External Result Encounter NOM[facility] External Department Unsolicited Maureen Fritz DPM 11/16/2024 Travel 11/16/2024 Telephone [facility] [address] [place] [phone] Shantel Parsons MA 10/31/2024 Refill [facility] [address] [place] [address] Luan Kincaid MD Neurogenic pain from Last 3 Months Family History Medical [...] Description 02/04/2025 12:30 PM EDT Office Visit [facility] [place] [facility] [address] [place] [address] Nereida Castro MD [address] [place] [address] 02/10/2025 1:00 PM EDT Office Visit [facility] [address] [place] [address] Nereida Castro MD [address] [place] [address] 07/20/2025 4:00 PM EDT Office Visit [facility] [address] [place] [address] Luan Kincaid MD [address] [address] Procedures Procedure Name Priority Date/Time Associated Diagnosis [...] the splenic parenchyma. Procedure Note Almas Reeves, - 01/01/2025 EXAM: MR LUMBAR SPINE WO [...] Laterality Modality Lower Extremities, Foot Right Radiogra hazard [facility] Imaging Narrative 11/16/2024 5:13 PM EDT Imaging [...] EDT) AZITHROMYCIN <2(S) 11/18/2024 9:54 AM EDT [facility] CEFTAROLINE <0.5(S) 11/18/2024 9:54 AM EDT [facility] CIPROFLOXACIN <1(S) 11/18/2024 9:54 AM EDT [facility] CLINDAMYCIN 0.5(S) 11/18/2024 9:54 AM EDT [facility] DAPTOMYCIN 1(S) 11/18/2024 9:54 AM EDT [facility] LEVOFLOXACIN <1(S) 11/18/2024 9:54 AM EDT [facility] LINEZOLID 2(S) 11/18/2024 9:54 AM EDT [facility] OXACILLIN <0.25(S) 11/18/2024 9:54 AM EDT [facility] PENICILLIN >2(R) 11/18/2024 9:54 AM EDT [facility] TETRACYCLINE <4(S) 11/18/2024 9:54 AM EDT [facility] TRIMETHOPRIM/SULF AMETHOXAZOLE <0.5/9.5( S) 11/18/2024 9:54 AM EDT [facility] VANCOMYCIN 1(S) 11/18/2024 9:54 AM EDT [facility] Other Structure of right foot / Unknown 11/16/2024 4:48 PM EDT 11/16/2024 5:30 PM EDT Comment:Ulcer Maureen Fritz [facility] Final Resu lt [facility] [address] [place] [address], [facility] [address] [place] [address] * (ABNORMAL) AEROBIC FAMILIA CHARGE ([id number]) (11/16/2024 4:48 PM EDT) AMIKACIN <16(S) 11/18/2024 9:54 AM EDT [facility] AMOXACILLIN/K CLAVULANATE <8/4(S) 11/18/2024 9:54 AM EDT [facility] AMPICILLIN/SULBAC ARREDONDO 8/4(S) 11/18/2024 9:54 AM EDT [facility] AZTREONAM <4(S) 11/18/2024 9:54 AM EDT [facility] CEFAZOLIN >16(R) 11/18/2024 9:54 AM EDT [facility] CEFEPIME <2(S) 11/18/2024 9:54 AM EDT [facility] CEFTAZIDIME <1(S) 11/18/2024 9:54 AM EDT [facility] CEFTAZIDIME/AVIBA CTAM <4(S) 11/18/2024 9:54 AM EDT [facility] CEFTOLOZANE/TAZOB ACTAM <2(S) 11/18/2024 9:54 AM EDT [facility] CEFTRIAXONE <1(S) 11/18/2024 9:54 AM EDT [facility] CEFUROXIME 8(S) 11/18/2024 9:54 AM EDT [facility] CIPROFLOXACIN <0.25(S) 11/18/2024 9:54 AM EDT [facility] ERTAPENEM <0.5(S) 11/18/2024 9:54 AM EDT [facility] GENTAMICIN <2(S) 11/18/2024 9:54 AM EDT [facility] LEVOFLOXACIN <0.5(S) 11/18/2024 9:54 AM EDT [facility] MEROPENEM <1(S) 11/18/2024 9:54 AM EDT [facility] MEROPENEM/VABORBA CTAM <2(S) 11/18/2024 9:54 AM EDT [facility] PIPERACILLIN/TAZO BACTAM <8(S) 11/18/2024 9:54 AM EDT [facility] TETRACYCLINE <4(S) 11/18/2024 9:54 AM EDT [facility] TIGECYCLINE <2(S) 11/18/2024 9:54 AM EDT [facility] TOBRAMYCIN <2(S) 11/18/2024 9:54 AM EDT [facility] TRIMETHOPRIM/SULF AMETHOXAZOLE <0.5/9.5( S) 11/18/2024 9:54 AM EDT [facility] Other Structure of right foot / Unknown 11/16/2024 4:48 PM EDT 11/16/2024 5:30 PM EDT Comment:Ulcer Maureen Fritz M [facility] Final Resu lt Performing Organization Address [facility] de Phone Number [facility] [address] [place] [address], [facility] [address] [place] [address] * SUPERFICIAL WOUND CULTURE ([facility]) (11/16/2024 4:48 PM EDT) [facility] ORGANISM Klebsiella oxytoca 9:54 AM EDT [facility] QUANTITY OF GROWTH Moderate Growth 11/18/2024 9:54 AM EDT [facility] ORGANISM Staphylococcus aureus 11/18/2024 9:54 AM EDT [facility] QUANTITY OF GROWTH Heavy Growth 11/18/2024 9:54 AM EDT [facility] Other Structure of right foot / Unknown 11/16/2024 4:48 PM EDT 11/16/2024 5:30 PM EDT Comment:Ulcer Maureen Fritz DPM LAB MICROBIOLOGY - GENERAL ORDERABLES Final Result Performing Organization Address [facility] de Phone Number [facility] [address] [place] [address], [facility] [address] [place] [address] from Last 3 Months Insurance [employer] MEDICARE [place]ICAID [place] Care Teams Industrial Eng Relationship Specialty Start Date End Date Sandra Lewis DO [address] [facility] [place] [phone] PCP - General Family Medicine 10/15/24
--- OUTSIDE RECORDS SUMMARY | 2025-01-27 06:31 | XMS_ITS | Patient Health Record ---
Author Organization [facility] Address [address] [place] [address] Care Team Providers Care Panel Coverer Name Role Phone Dr. Edgar Garcia Primary Care Provider Reason For Referral No Information Plan Of Treatment No Information Insurance Providers Payer Name Payer Address Payer Phone Subscriber Number Group Number Insured Name Patient Relationship to Insured Coverage Start Date Coverage End Date MEDICARE CGS [address] [place] [address] [phone] [id number] TAYE MARCOS Self - patient is the insured 1 MEDICAID [facility] TO [facility] [address] [place] [address] [id number] TAYE MARCOS Self - patient is the insured 1 [place] [address] [place] [address] [id number] TAYE MARCOS Self - patient is the insured 1
--- OUTSIDE RECORDS SUMMARY | 2025-01-27 06:31 | XMS_ITS | Encounter Summary ---
Author Organization [facility] Address [address] [place] [address] Phone Care Team Providers Care Food Truck Caterer Name Role Phone Sandra Lewis DO Primary Care Provider Shantel Norton RUG TOUCH UP PAINTER-PROCESS IMPROVEMENT CONSULTANT Primary Care Pro vider Encounter Details Date Type Department Care Team (Late st Contact Info) Description 11/23/2024 Scanned Document [facility] [address] [place] [address] Scanning, Generic Provider Social History Tobacco Use [...] Description 08/17/2025 3:10 PM EDT Office Visit [place] [address] [facility] [address] [place] [address] Roland Faust MD [address] [facility] [address], [address] [place] [address] documented as of this encounter Visit Diagnoses Not on filedocumented in this encounter Additional Health Concerns Assessment Noted Time A fall risk assessment has been complete d for the patient 06/26/2024 9:48 AM EST documented as of this encounter Care Teams Food Truck Caterer Relationship Specialty Start Date End Date Sandra Lewis DO [address] [facility] [place] [address] PCP - General Family Medicine 09/25/23 12/29/24 Shantel Norton, NITZA-PROCESS IMPROVEMENT CONSULTANT [address] [facility] [place] [address] PCP - General Family Medicine 12/30/24 documented as of this encounter
--- OUTSIDE RECORDS SUMMARY | 2025-01-27 06:31 | XMS_ITS | Encounter Summary ---
Author Organization [facility] Address [address] [place] [address] Phone Care Team Providers Care Tank Cleaner Name Role Phone Sandra Lewis DO Primary Care Provider [phone] Shantel Norton APRN-AIRFRAME AND POWERPLANT TECHNICIAN Primary Care Pro vider Encounter Details Date Type Department Care Team (Late st Contact Info) Description 12/02/2023 Scanned Document [facility] [address] [place] [phone] Scanning, Generic Provider Social History Tobacco Use [...] Description 08/17/2025 3:10 PM EDT Office Visit [facility] 703 [facility] 250 [place] [address] Roland Faust MD 703 [facility] 2, [address] [place] [address] documented as of this encounter Visit Diagnoses Not on filedocumented in this encounter Additional Health Concerns Assessment Noted Time A fall risk assessment has been complete d for the patient 11/13/2023 1:54 PM EDT documented as of this encounter Care Teams Tank Cleaner Relationship Specialty Start Date End Date Sandra Lewis DO [address] [facility] [place] [address] PCP - General Family Medicine 09/25/23 12/29/24 Shantel Norton APRN-AIRFRAME AND POWERPLANT TECHNICIAN [address] [facility] [place] [address] PCP - General Family Medicine 12/30/24 documented as of this encounter
--- OUTSIDE RECORDS SUMMARY | 2025-01-27 06:31 | XMS_ITS | Encounter Summary ---
Author Organization [facility] Address [address] [place] [address] Phone Care Team Providers Care Lumber Sorter Name Role Phone Sandra Lewis DO Primary Care Provider [phone] Shantel Norton EDGE RUNNER-CONTRACT RUNNER Primary Care Pro vider Encounter Details Date Type Department Care Team (Late st Contact Info) Description 11/11/2023 Scanned Document [facility] [address] [place] [phone] Scanning, Generic Provider Social History Tobacco Use [...] Description 08/17/2025 3:10 PM EDT Office Visit [facility] 703 [facility] [address] [place] [address] Roland Faust MD [facility]03 [facility], [address] [place] [address] documented as of this encounter Visit Diagnoses Not on filedocumented in this encounter Additional Health Concerns Assessment Noted Time A fall risk assessment has been complete d for the patient 10/07/2023 9:51 AM EDT documented as of this encounter Care Teams Lumber Sorter Relationship Specialty Start Date End Date Sandra Lewis DO [address] [facility] [place] [address] PCP - General Family Medicine 09/25/23 12/29/24 Shantel Norton APRN-CONTRACT RUNNER 1[address] [facility] [place] [address] PCP - General Family Medicine 12/30/24 documented as of this encounter
--- OUTSIDE RECORDS SUMMARY | 2025-01-27 06:31 | XMS_ITS | Encounter Summary ---
Author Organization [facility] Address [address] [place] [address] Phone Care Team Providers Care Oil Lease Buyer Name Role Phone Sandra Lewis DO Primary Care Provider [phone] Shantel Norton FLIGHT COMMUNICATIONS SPECIALIST-PUNCH PRESS FEEDER Primary Care Pro vider Encounter Details Date Type Department Care Team (Late st Contact Info) Description 09/14/2023 Scanned Document [facility] [address] [place] [address] Scanning, Generic Provider Social History Tobacco Use [...] Description 08/17/2025 3:10 PM EDT Office Visit [facility] 703 [facility] [address] [place] [address] Roland Faust MD 703 [facility] 2, [address] [place] [address] documented as of this encounter Visit Diagnoses Not on filedocumented in this encounter Care Teams Oil Lease Buyer Relationship Specialty Start Date End Date Sandra Lewis DO [address] [facility] [place] [address] PCP - General Family Medicine 09/25/23 12/29/24 Shantel Norton APRN-PUNCH PRESS FEEDER [address] [place] [address] PCP - General Family Medicine 12/30/24 documented as of this encounter
--- OUTSIDE RECORDS SUMMARY | 2025-01-27 06:31 | XMS_ITS | Encounter Summary ---
Author Organization [facility] Address [address] [facility] [place] [address] Care Team Providers Care Lamination Operator Name Role Phone Sandra Lewis Primary Care Provider [phone] Debbie Sandra BONNER Primary Care Provider [phone] Encounter Details Date Type Department Care Team (Late Contact Info) Description 12/13/2023 Orders Only [facility] [address] [place] [address] Luan Kincaid MD [address] [place], [place] [phone] Social History Tobacco Use Types Packs/Day Years [...] Department Care Team (Late Contact Info) Description 02/04/2025 12:30 PM EDT Office Visit [facility] [address] [place] [phone] Nereida Castro MD [address] [place] [address] 02/10/2025 1:00 PM EDT Office Visit [facility] [place] [facility] [address] [place] [address] Nereida Castro MD [address] [place], [place] [address] 07/20/2025 4:00 PM EDT Office [facility] [address] [place] [address] Luan Kincaid MD [address] [address] documented as of this encounter Visit Diagnoses Not on filedocumented in this encounter Care Teams Lamination Operator Relationship Specialty Start Date End Date Sandra Lewis DO PCP - General Family Medicine 01/09/23 10/14/24 Sandra Lewis DO 25[address] [facility] [place] [address] PCP - General Family Medicine 10/15/24 documented as of this encounter
--- OUTSIDE RECORDS SUMMARY | 2025-01-27 06:31 | XMS_ITS | Encounter Summary ---
Author Organization [facility] Address [address] [place] [address] Phone Care Team Providers Care Edi Manager Name Role Phone Sandra Lewis DO Primary Care Provider [phone] Shantel Norton COMMERCIAL SERVICE TECHNICIAN-MEDICINE ASSISTANT Primary Care Pro vider Encounter Details Date Type Department Care Team (Late st Contact Info) Description 2024 Scanned Document [facility] [address] [place] [address] Scanning, Generic Provider Social History Tobacco Use [...] 3:10 PM EDT Office Visit [place] [address] [facility] 250 [place] [address] Roland Faust MD 703 [facility] 2, [address] [place] [address] documented as of this encounter Visit Diagnoses Not on filedocumented in this encounter Additional Health Concerns Assessment Noted Time A fall risk assessment has been complete d for the patient 06/26/2024 9:48 AM EST documented as of this encounter Care Teams Edi Manager Relationship Specialty Start Date End Date Sandra Lewis DO [address] [facility] [place] [address] PCP - General Family Medicine 09/25/23 12/29/24 Shantel Norton, NITZA-MEDICINE ASSISTANT [address] [facility] [place] [address] PCP - General Family Medicine 12/30/24 documented as of this encounter
--- OUTSIDE RECORDS SUMMARY | 2025-01-27 06:31 | XMS_ITS | Encounter Summary ---
Author Organization [facility] Address [address] [place] [address] Care Team Providers Care Coverage Specialist Name Role Phone Sandra Lewis DO Primary Care Provider [phone] Encounter Details Date Type Department Care Team [...] NUNN [address] [place] [address] Nereida Castro MD [address] [place] [address] 02/10/2025 1:00 PM EDT Office Visit [facility] [address] [place] [address] Nereida Castro MD [address] [place] [address] 07/20/2025 4:00 PM EDT Office [facility] [place] [facility] [address] [facility] [place] [address] C[place], Luan Snyder MD [address] [facility] [address] [place] [address] documented as of this encounter Visit Diagnoses Not on filedocumented in this encounter Care Teams Coverage Specialist Relationship Specialty Start Date End Date Sandra Lewis DO 2520 [facility] [place] [address] PCP - General Family Medicine 10/15/24 documented as of this encounter
--- OUTSIDE RECORDS SUMMARY | 2025-01-27 06:31 | XMS_ITS | Encounter Summary ---
Author Organization [facility] Address [address] [place] [address] Care Team Providers Care Sales Support Consultant Name Role Phone Sandra Lewis DO Primary Care Provider [phone] Encounter Details Date Type Department Care Team (Late st Contact Info) Description 01/19/2025 Bamboo flowsheet [facility] [address] [facility] [place] [address] Luan Kincaid MD [address] [facility] [address] [place] [id number] Social History Tobacco Use Types Packs/Day Years [...] NUNN [address] [place] [address] Nereida Castro MD [address] [facility] [address] [place] [address] 02/10/2025 1:00 PM EDT Office Visit [facility] [place] [facility] [address] [facility] 210 [place] [address] Nereida Castro MD [address] [facility] [address] [place] [address] 07/20/2025 4:00 PM EDT Office Visit [facility] [place] [facility] [address] [facility] [address] [place] [address] Luan Kincaid MD 6637 [facility] 111 [place], [place] [phone] documented as of this encounter Visit Diagnoses Not on filedocumented in this encounter Care Teams Sales Support Consultant Relationship Specialty Start Date End Date Sandra Lewis DO [address] [facility] [place] [address] PCP - General Family Medicine 10/15/24 documented as of this encounter
--- OUTSIDE RECORDS SUMMARY | 2025-01-27 06:31 | XMS_ITS | Encounter Summary ---
Author Organization [facility] Address [address] [place] [address] Care Team Providers Care Database Modeler Name Role Phone Sandra Lewis Primary Care Provider [phone] Sandra Lewis DO Primary Care Provider [phone] Encounter Details Date Type Department Care Team (Late Contact Info) Description 12/17/2023 External Result Encounter [facility] External Department Unsolicited Luan Kincaid MD 5319 [facility] [address] [place] [address] Social History Tobacco Use Types Packs/Day Years [...] NUNN [address] [place] [address] Nereida Castro MD [address] [facility] [address] [place] [address] 02/10/2025 1:00 PM EDT Office Visit [facility] [address] [place] [address] Nereida Castro MD [address] [place] [address] 07/20/2025 4:00 PM EDT Office Visit [facility] [address] [place] [address] Luan Kincaid MD 2119 [facility] [address] [place] [id number] documented as of this encounter Procedures Procedure [...] Luan Bowling M.D.12/17/2023 12:50 PM Dictation Location: [place] [address] Transcribed By: [facility] 12/17/23 1250 Dictated By: Luan Bowling II, MD 12/17/23 1240 Signed By: <Electronically signed by Luan Bowling II, MD in OV> 12/17/23 1250 Narrative 12/17/2023 12:53 PM EDT [facility] Main [address] [address] MRI Report Signed Patient: Kerry Gay MR#: [id number] 19 : 1955 Acct:[id number] Age/Sex: 68 / F ADM Date: 12/17/23 Loc: [facility] Room: Type: [facility] CLI Attending Dr: Luan Kincaid MD Copies to: Luan Kincaid MD Ordering Provider: Luan Kincaid MD Date of Service: 12/17/23 MR/MR lumbar spine wo con: m54.17 ([id number]) XR/XR pre/post mri xray: post MRI lumbar [...] spine wo con Procedure Note Radiology, Radiologist, MD - 12/17/2023 [facility] Main [place] [address] [place] [address] MRI Report Signed Patient: Kerry Gay CMR#: [id number] 19 : 8Acct:[id number] Age/Sex: 68 / FADM Date: 12/17/23 Loc: [facility] Room:Type: [facility] Attending Dr: Luan Kincaid MD Copies to: Luan Kincaid MD Ordering Provider: Luan Kincaid MD Date of Service: 12/17/23 MR/MR lumbar spine wo con: m54.17 ([id number]) XR/XR pre/post mri xray: post MRI lumbar [...] Luan Bowling M.D.12/17/2023 12:50 PM Dictation Location: [place] [address] Transcribed By: [facility] 12/17/23 1250 Dictated By: Luan Bowling II, MD 12/17/23 1240 Signed By: <Electronically signed by Luan Bowling II, MD inO> 12/17/23 1250 Luan Kincaid MD IMG MRI PROCEDURES Final Result documented in this encounter Visit Diagnoses Not on filedocumented in this encounter Care Teams Database Modeler Relationship Specialty Start Date End Date Sandra Lewis DO PCP - General Family Medicine 01/09/23 10/14/24 Sandra Lewis DO [address] [facility] [place] [address] PCP - General Family Medicine 10/15/24 documented as of this encounter
--- OUTSIDE RECORDS SUMMARY | 2025-01-27 06:31 | XMS_ITS | Encounter Summary ---
Author Organization [facility] Address [address] [place] [address] Care Team Providers Care Weekend Caregiver Name Role Phone Sandra Lewis DO Primary Care Provider [phone] Encounter Details Date Type Department Care Team (Late st Contact Info) Description 01/26/2025 Telephone [facility] [place] [address] [facility] [address] [place] [address] Nereida Castro MD [address] [facility] [address] [place] [address] Social History Tobacco Use Types Packs/Day Years [...] encounter Miscellaneous Notes * Telephone Encounter - Meg Hatch - 01/26/2025 5:05 PM EDT Spoke with pts daughter, scheduled for 02/04/25 at 12:30 * Telephone Encounter - Ebony Torres MA - 01/26/2025 3:01 PM EDT Pt daughter called stating that the pt was complaining of pain on her vagina 01/14. Pt daughter then looked and found a arlen sized growth with 10 finger looking sprouts coming out of it. She states the growth is red and brown at the base and the pt can feel it growing. Call daughter back [phone] documented in this encounter Plan of Treatment Upcoming Encounters Date Type Department Care Team (Late st Contact Info) Description 02/04/2025 12:30 PM EDT Office Visit [facility] [place] [facility] [address] [place] [address] Nereida Castro MD [address] [place] [address] 02/10/2025 1:00 PM EDT Office Visit [facility] [place] [facility] [address] [place] [address] Nereida Castro MD [address] [place] [address] 07/20/2025 4:00 PM EDT Office Visit [facility] [place] [facility] [address] [place] [address] Luan Kincaid MD 0516 [facility] [address] [address] documented as of this encounter Visit Diagnoses Not on filedocumented in this encounter Care Teams Weekend Caregiver Relationship Specialty Start Date End Date Sandra Lewis DO 2519 [facility] [place] [address] PCP - General Family Medicine 10/15/24 documented as of this encounter
--- OUTSIDE RECORDS SUMMARY | 2025-01-27 06:31 | XMS_ITS | Encounter Summary ---
Author Organization [facility] Address [address] [place] [address] Phone Care Team Providers Care Vocal Performer Name Role Phone Sandra Lewis DO Primary Care Provider [phone] Shantel Norton MANAGER ANALYTICAL-ASSOCIATE SCHOOL PSYCHOLOGIST Primary Care Pro vider Encounter Details Date Type Department Care Team (Late st Contact Info) Description 09/12/2023 Scanned Document [facility] [address] [place] [address] Scanning, Generic Provider Social History Tobacco Use [...] Description 08/17/2025 3:10 PM EDT Office Visit [facility] 703 [facility] [address] [place] [address] Roland Faust MD 703 [facility] 2, [address] [place] [address] documented as of this encounter [...] on filedocumented in this encounter Care Teams Vocal Performer Relationship Specialty Start Date End Date Sandra Lewis DO 2520 [facility] [place] [address] PCP - General Family Medicine 09/25/23 12/29/24 Shantel Norton APRN-ASSOCIATE SCHOOL PSYCHOLOGIST [address] [place] [address] PCP - General Family Medicine 12/30/24 documented as of this encounter
--- OUTSIDE RECORDS SUMMARY | 2025-01-27 06:31 | XMS_ITS | Clinical Summary ---
Author Organization [facility] Address [address] [place] [address] Phone Care Team Providers Care Demonstrator Sewing Techniques Name Role Phone Shantel Norton APRN-MECHANIC WELDER TRUCK DRIVER Primary Care Pro vider Allergies Active Allergy [...] Description 12/30/2024 1:40 PM EDT Office Visit [place] [id number] [address] Roland Faust MD Typical atrial flutter (Multi) (Primary Dx); Nonischemic cardiomyopathy (Multi); Hypertension, unspecified type; Hypercholesteremia; Obesity (BMI 30-39.9); Current smoker Discharge Disposition: Home 12/30/2024 Travel 2024 Scanned Document [facility] [address] [place] [address] Scanning, Generic Provider 11/23/2024 Scanned Document [facility] [address] [place] [address] Scanning, Generic Provider from Last 3 Months [...] EDT Office Visit [facility] [address] [facility] [address] [place] [address] Roland Faust MD [address] [facility] [address], [address] [place] [address] Health Maintenance Due Date Last [...] DUAL COMPLETE MEDICAID DUAL COMPLETE Care Teams Demonstrator Sewing Techniques Relationship Specialty Start Date End Date Shantel Norton APRN-JAYSON [address] [place] [address] PCP - General Family Medicine 12/30/24
--- OUTSIDE RECORDS SUMMARY | 2025-01-27 06:31 | XMS_ITS | Encounter Summary ---
Author Organization [facility] Address [address] [place] [address] Phone Care Team Providers Care Damage Cutter Name Role Phone Sandra Lewis DO Primary Care Provider [phone] Shantel Norton MEDICAL AFFAIRS SPECIALIST-SERVICE ORDER CLERK Primary Care Pro vider Encounter Details Date Type Department Care Team (Late st Contact Info) Description 11/10/2023 Scanned Document [facility] [address] [place] [phone] Scanning, Generic Provider Social History Tobacco Use [...] Description 08/17/2025 3:10 PM EDT Office Visit [facility] 703 [facility] [address] [place] [address] Roland Faust MD 703 [facility] [address], [address] [place] [address] documented as of this encounter Procedures Procedure [...] documented as of this encounter Care Teams Damage Cutter Relationship Specialty Start Date End Date Sandra Lewis DO 2520 [facility] [place] [address] PCP - General Family Medicine 09/25/23 12/29/24 Shantel Norton APRN-SERVICE ORDER CLERK 1255 [facility] [place] [address] PCP - General Family Medicine 12/30/24 documented as of this encounter
--- OUTSIDE RECORDS SUMMARY | 2025-01-27 06:31 | XMS_ITS | Encounter Summary ---
Author Organization [facility] Address [address] [place] [address] Phone Care Team Providers Care Precinct I Police Sergeant Name Role Phone Sandra Lewis DO Primary Care Provider [phone] Shantel Norton HEALTHCARE MARKETER-SCAFFOLD ERECTOR Primary Care Pro vider Encounter Details Date Type Department Care Team (Late st Contact Info) Description 04/30/2024 Scanned Document [facility] [address] [place] [address] Scanning, Generic Provider Social History Tobacco Use [...] Description 08/17/2025 3:10 PM EDT Office Visit [facility] 703 [facility] [address] [place] [address] Roland Faust MD 703 [facility] 2, [address] [place] [address] documented as of this encounter Visit Diagnoses Not on filedocumented in this encounter Additional Health Concerns Assessment Noted Time A fall risk assessment has been complete d for the patient 12/16/2023 10:41 AM EDT documented as of this encounter Care Teams Precinct I Police Sergeant Relationship Specialty Start Date End Date Sandra Lewis DO 2520 [facility] [place] [address] PCP - General Family Medicine 09/25/23 12/29/24 Shantel Norton, NITZA-SCAFFOLD ERECTOR 1255 [facility] [place] [address] PCP - General Family Medicine 12/30/24 documented as of this encounter
--- OUTSIDE RECORDS SUMMARY | 2025-01-27 06:31 | XMS_ITS | Encounter Summary ---
Author Organization [facility] Address [address] [place] [address] Phone Care Team Providers Care Telephonic Rn Name Role Phone Sandra Lewis DO Primary Care Provider [phone] Shantel Norton LOCOMOTIVE CRANE OPERATOR HELPER-BRANCH SALES AND SERVICE REPRESENTATIVE Primary Care Pro vider Encounter Details Date Type Department Care Team (Late st Contact Info) Description 11/12/2023 Scanned Document [facility] [address] [place] [address] Scanning, Generic Provider Social History Tobacco Use [...] Description 08/17/2025 3:10 PM EDT Office Visit [facility] 703 [facility] [address] [place] [address] Roland Faust MD 703 [facility], [address] [place] [address] documented as of this encounter Visit Diagnoses Not on filedocumented in this encounter Additional Health Concerns Assessment Noted Time A fall risk assessment has been complete d for the patient 10/07/2023 9:51 AM EDT documented as of this encounter Care Teams Telephonic Rn Relationship Specialty Start Date End Date Sandra Lewis DO 2524 [facility] [place] [address] PCP - General Family Medicine 09/25/23 12/29/24 Shantel Norton APRN-BRANCH SALES AND SERVICE REPRESENTATIVE 1255 [facility] [address] PCP - General Family Medicine 12/30/24 documented as of this encounter
--- OUTSIDE RECORDS SUMMARY | 2025-01-27 06:31 | XMS_ITS | Encounter Summary ---
Author Organization [facility] Address [address] [place] [address] Phone Care Team Providers Care Bolt Maker Name Role Phone Sandra Lewis DO Primary Care Provider [phone] Shantel Norton PHARMACEUTICAL BOTANIST-ENGINE ASSEMBLER Primary Care Pro vider Encounter Details Date Type Department Care Team (Late Contact Info) Description 07/22/2024 Scanned Document [facility] [address] [place] [address] Scanning, Generic Provider Social History Tobacco Use [...] Office Visit [facility] [address] [facility] [address] [place] [address] Roland Faust MD 703 [facility] 2, [address] [place] [address] Scheduled Orders Name Type Priority Associated Diagnoses Orde r Schedule Ultrasound- OnBase Scan Imaging O rdered: 07/22/2024 documented as of this encounter Visit Diagnoses Not on filedocumented in this encounter Additional Health Concerns Assessment Noted Time A fall risk assessment has been complete d for the patient 06/26/2024 9:48 AM EST documented as of this encounter Care Teams Bolt Maker Relationship Specialty Start Date End Date Sandra Lewis DO [address]20 [place] [address] PCP - General Family Medicine 09/25/23 12/29/24 Shantel Norton APRN-ENGINE ASSEMBLER [address] [place] [address] PCP - General Family Medicine 12/30/24 documented as of this encounter
--- OUTSIDE RECORDS SUMMARY | 2025-01-27 06:31 | XMS_ITS | Encounter Summary ---
Author Organization [facility] Address [address] [place] [address] Phone Care Team Providers Care Aluminum Can Collector Name Role Phone Sandra Lewis DO Primary Care Provider [phone] Shantel Norton MEDICAL STAFF SERVICES MANAGER-CEO & FOUNDER Primary Care Pro vider Encounter Details Date Type Department Care Team (Late st Contact Info) Description 04/28/[address] [facility] [address] [place] [address] Scanning, Generic Provider Social History Tobacco Use [...] Description 08/17/2025 3:10 PM EDT Office Visit [facility] 703 [facility] 250 [place] [address] Roland Faust MD 703 [facility] 2, [address] [place] [address] documented as of this encounter [...] documented as of this encounter Care Teams Aluminum Can Collector Relationship Specialty Start Date End Date Sandra Lewis DO [address]20 [place] [address] PCP - General Family Medicine 09/25/23 12/29/24 Shantel Norton APRN-CEO & FOUNDER 1255 [facility] [place] [address] PCP - General Family Medicine 12/30/24 documented as of this encounter
--- OUTSIDE RECORDS SUMMARY | 2025-01-27 06:31 | XMS_ITS | Encounter Summary ---
Author Organization [facility] Address [address] [place] [address] Phone Care Team Providers Care Graphic Design Manager Name Role Phone Sandra Lewis DO Primary Care Provider [phone] Shantel Norton ASSISTANT FAMILY TEACHER-WAX COATING MACHINE TENDER Primary Care Pro vider Encounter Details Date Type Department Care Team (Late st Contact Info) Description 09/13/2023 Scanned Document [facility] [address] [place] [address] Scanning, Generic Provider Social History Tobacco Use [...] Visit [facility] [address] [facility] [address] [place] [address] Roland Faust MD 703 [facility] 2, [address] [place] [address] documented as of this encounter Visit Diagnoses Not on filedocumented in this encounter Care Teams Graphic Design Manager Relationship Specialty Start Date End Date Sandra Lewis DO [address] [facility] [place] [address] PCP - General Family Medicine 09/25/23 12/29/24 Shantel Norton APRN-WAX COATING MACHINE TENDER [address] [place] [address] PCP - General Family Medicine 12/30/24 documented as of this encounter
--- OUTSIDE RECORDS SUMMARY | 2025-01-27 06:31 | XMS_ITS | Encounter Summary ---
Author Organization [facility] Address [address] [place] [address] Phone Care Team Providers Care Consumer Relations Complaint Clerk Name Role Phone Sandra Lewis DO Primary Care Provider Shantel Norton PULP COOKER-AIRPORT RAMP AGENT Primary Care Pro vider Encounter Details Date Type Department Care Team (Late st Contact Info) Description 11/09/2023 Scanned Document [facility] [address] [place] [address] Scanning, Generic Provider Social History Tobacco Use [...] Description 08/17/2025 3:10 PM EDT Office Visit [place] [address] [facility] [address] [place] [address] Roland Faust MD 703 [facility] 2, [address] [place] [address] documented as of this encounter Visit Diagnoses Not on filedocumented in this encounter Additional Health Concerns Assessment Noted Time A fall risk assessment has been complete d for the patient 10/07/2023 9:51 AM EDT documented as of this encounter Care Teams Consumer Relations Complaint Clerk Relationship Specialty Start Date End Date Sandra Lewis DO 2520 [facility] [place] [address] PCP - General Family Medicine 09/25/23 12/29/24 Shantel Norton, NITZA-AIRPORT RAMP AGENT 1255 [facility] [place] [address] PCP - General Family Medicine 12/30/24 documented as of this encounter
--- OUTSIDE RECORDS SUMMARY | 2025-01-27 06:31 | XMS_ITS | Encounter Summary ---
Author Organization [facility] Address [address] [place] [address] Phone Care Team Providers Care Pageant Director Name Role Phone Sandra Lewis DO Primary Care Provider [phone] Shantel Norton DIVERSIFIED CROPS FARMER-DIGITAL MEDIA ANALYST Primary Care Pro vider Encounter Details Date Type Department Care Team (Late Contact Info) Description 2023 Scanned Document [facility] [address] [place] [address] Scanning, Generic Provider Social History Tobacco Use [...] 3:10 PM EDT Office Visit [place] [address] [facility] [address] [place] [address] Roland Faust MD 703 [facility] 2, [address] [place] [address] documented as of this encounter Visit Diagnoses Not on filedocumented in this encounter Additional Health Concerns Assessment Noted Time A fall risk assessment has been complete d for the patient 11/13/2023 1:54 PM EDT documented as of this encounter Care Teams Pageant Director Relationship Specialty Start Date End Date Sandra Lewis DO 2520 [place] [address] PCP - General Family Medicine 09/25/23 12/29/24 Shantel Norton APRN-DIGITAL MEDIA ANALYST [address] [place] [address] PCP - General Family Medicine 12/30/24 documented as of this encounter
--- OUTSIDE RECORDS SUMMARY | 2025-01-27 06:31 | XMS_ITS | Encounter Summary ---
Author Organization [facility] Address [address] [place] [address] Care Team Providers Care Pattern Maker Programer Name Role Phone Sandra Lewis Primary Care Provider [phone] Sandra Lewis DO Primary Care Provider [phone] Encounter Details Date Type Department Care Team (Late Contact Info) Description 10/30/2023 External Result Encounter [facility] External Department Unsolicited Luan Kincaid MD 5319 [facility] [address] [place] [address] Social History Tobacco Use Types Packs/Day Years [...] NUNN [address] [place] [address] Nereida Castro MD [address] [facility] [address] [place] [address] 02/10/2025 1:00 PM EDT Office Visit [facility] [address] [place] [address] Nereida Castro MD [address] [place] [address] 07/20/2025 4:00 PM EDT Office Visit [facility] [place] [facility] [address] [place] [address] Luan Kincaid MD 8848 [facility] [address] [place] [phone] documented as of this encounter Procedures Procedure [...] [place] Jr., D.O.10/30/2023 3:15 PM Dictation Location: [place] [address] Transcribed By: PWS 10/30/23 1515 Dictated By: Edgar [place] Jr, DO 10/30/23 1514 Signed By: <Electronically signed by Edgar [place] Jr, DO in OV> 10/30/23 1515 Narrative 10/30/2023 3:17 PM EDT [facility] Main [place] [address] [place] [address] XRay Report Signed Patient: Kerry Gay MR#: [id number] 19 : 1955 Acct:[id number] Age/Sex: 67 / F ADM Date: 10/30/23 [...] Procedure Note Radiology, Radiologist, MD - 10/30/2023 [facility] Main [place] [address] [place] [address] XRay Report Signed Patient: Kerry Gay CMR#: [id number] 19 : 8Acct:[id number] Age/Sex: 67 / FADM Date: 10/30/23 Loc: [...] Segovia Jr., D.O.10/30/2023 3:15 PM Dictation Location: [place] [address] Transcribed By: [facility] 10/30/23 1515 Dictated By: Edgar [place] Jr, DO 10/30/23 151 Signed By: <Electronically signed by Edgar [place] Jr, inOV> 10/30/23 1515 us Luan Kincaid MD IMG XR PROCEDURES Final Result documented in this encounter Visit Diagnoses Not on filedocumented in this encounter Care Teams Pattern Maker Programer Relationship Specialty Start Date End Date Sandra Lewis DO PCP - General Family Medicine 01/09/23 10/14/24 Sandra Lewis DO [address]20 [place] [address] PCP - General Family Medicine 10/15/24 documented as of this encounter
--- OUTSIDE RECORDS SUMMARY | 2025-01-27 06:31 | XMS_ITS | Encounter Summary ---
Author Organization [facility] Address [address] [place] [address] Phone Care Team Providers Care Mineral Surveying Technician Name Role Phone Sandra Lewis DO Primary Care Provider [phone] Shantel Norton JUNIOR ELECTRICAL ENGINEER-PHOTOGRAPH RETOUCHER Primary Care Pro vider Encounter Details Date Type Department Care Team (Late Contact Info) Description 01/06/2024 Scanned Document [facility] [address] [place] [address] Scanning, Generic Provider Social History Tobacco Use [...] Description 08/17/2025 3:10 PM EDT Office Visit [facility] 7[address] [facility] [address] [place] [address] Roland Faust MD 703 [facility] 2, [address] [place] [address] Scheduled Orders Name Type Priority Associated Diagnoses Orde r Schedule Ultrasound- OnBase Scan Imaging O rdered: 01/06/2024 documented as of this encounter Visit Diagnoses Not on filedocumented in this encounter Additional Health Concerns Assessment Noted Time A fall risk assessment has been complete d for the patient 12/16/2023 10:41 AM EDT documented as of this encounter Care Teams Mineral Surveying Technician Relationship Specialty Start Date End Date Sandra Lewis DO 2520 [place] [address] PCP - General Family Medicine 09/25/23 12/29/24 Shantel Norton APRN-PHOTOGRAPH RETOUCHER 1255 [place] [address] PCP - General Family Medicine 12/30/24 documented as of this encounter
--- NOTE | 2025-01-27 06:45 | MR_ITS ---
[facility] [place] [id number] Patient Name: TAYE MARCOS MRN: [id number] date: 1955 Sex: F Assigned Patient Location: LAB Current Patient Location: Accession/Order Number: [id number] Exam Date: 01/27/2025 06:50 Report Date: 01/27/2025 13:54 At the request of: ROSA FAITH Procedure: MR abdomen wo/w con MRI OF THE ABDOMEN WITH AND WITHOUT CONTRAST: CLINICAL HISTORY: lesion of spleen, abnormal ultrasound COMPARISON: Ultrasound 01/21/2025 TECHNIQUE: Multisequence, multiplanar imaging of the abdomen was obtained before and after the use of IV contrast. FINDINGS: Hepatic steatosis. No enhancing liver lesion. Hepatic and portal veins appear patent. Gallbladder has been removed. No CBD dilatation is present. Spleen demonstrates a 3 cm hemangioma as seen on the prior ultrasound study. Pancreas appears unremarkable. Adrenal glands and kidneys appear unremarkable. Aorta appears normal in caliber. No bulky lymphadenopathy or ascites. No pleural effusion. MR/MR abdomen wo/w con IMPRESSION: MRI EVIDENCE OF SPLENIC HEMANGIOMA. NO ACUTE INTRA-ABDOMINAL PATHOLOGY. Impression dictated by: Edgar Segovia Jr. DKenishaOKenisha 01/27/2025 1:54 PM Dictation Location: [place] [address] Electronically authenticated by: [id number] Y Date: 01/27/2025 13:54
[2025-01-27 06:47] LABS: Estimated GFR (African America 56 (>=60 mL/min/1.73m^2); Estimated GFR (Non-African Ame 47 (>=60 mL/min/1.73m^2)
== END 2025-01-27 06:29 | disposition home or self-care (01) ==
LOC: LAB 06:28
PROVIDERS: Family Provider Family Medicine; PCP Family Medicine; Visit Provider Nurse Practitioner Family
DX: D73.89 Other diseases of spleen (principal); R93.89 Abnormal findings on diagnostic imaging of other specified body structures
CPT/HCPCS: 36415; 74183; 82565; A9575

== ENCOUNTER 2025-01-27 09:58 | Outpatient (OUT) | payer MEDICARE, MEDICAID, SELFPAY ==
--- OUTSIDE RECORDS SUMMARY | 2015-08-21 20:00 | XMS_ITS | Continuity of Care Document ---
Author Organization [facility] Address [address] [place] [address] Phone Care Team Providers Care Siderographer Name Role Phone Bridget VARGAS, Margarita Unavailable [...] Diagnoses Date Provider Providers Copied on Encounter [facility], [address] [place], [place], [id number] , tel:[phone] [facility] - OP No Information 6 Bridget Avila. [address] [facility] Physician Office [place], [place], [address], [place]. tel:[phone] Referring Provider: Margarita Gutierrez, [address] [facility] Physician Office Building, [place], [address] . tel:[phone] [facility], [address] [place], [place], [address] , tel:[phone] [facility] - [facility] Shortness of breathChest pain, unspecifiedDizzines s and giddiness 6 Susie Del Toro. [address] [facility] Physicians Office [place], [place], [id number], [place]. tel:[phone] Referring Provider: Margarita Gutierrez, [address] [facility] Physician Office Building, [place], [address] . tel:[phone] [facility], [address] [facility], [place], [place], [address] , tel:[phone] [facility] - OP Shortness of breathChest pain, unspecifiedDizzines s and giddiness Apr-0 6-201 6 Jean Pierre-Marietta Blackwell. [address] [facility] Physicians Office Building, [place], [place], [facility], . tel:[phone] Referring Provider: Margarita Gutierrez, [address] [facility] Physician Office Building, [place], [address] . tel:[phone] Family History Family Member Type Diagnosis Age At Onset No Information Payers Payer name Insurance type Covered constitution party ID Jeremiah espinoza(link) Yoana [id number] Social History Type Description Quantity Date Captured [...]
--- OUTSIDE RECORDS SUMMARY | 2015-08-31 07:55 | XMS_ITS | Continuity of Care Document ---
Author Organization [facility] Address [address] [place] [address] Phone Care Team Providers Care Track Grinder Operator Name Role Phone Newton Segura MD [...] Provider Providers Copied on Encounter [facility], [address] [place] [address], [id number], tel:[phone] [facility] No Information 6 Colton Glez. [address] [facility] Physician Office Building, [place], [place], [id number], . tel:[phone] OFFICE/OUTPAT IENT VISIT, [facility] Physician [facility], [address] [place] [address], [id number], [place] tel:[phone] [facility] Hyperlipidemia , unspecified hyperlipidemia typeObesity, unspecified obesity severity, unspecified obesity typeShortness of breathEssentia l hypertension, hypertension with unspecified goal 6 Georgia Mastersi. [address] [place] [address], [place], [place], [id number], [place]. tel:[phone] OFFICE CONSULTATION [facility] Physician [facility], [address] [place] [address], [id number], [place] tel:[phone] [facility] Shortness of breathEssentia l hypertension, hypertension with unspecified goalHyperlipid emia LDL goal <100Diabetes mellitus type II, non insulin dependent Jun- 6 Bridget Avila. [address] [facility] Physician Office Building, [place], [place], [id number], [place]. tel:[phone] Referring Provider: Sadie Fritz NP, [facility] Maninder Saldivar, [place], [address]. tel:[phone] [facility] Physician [facility], [address] [place] [address], [id number], [place] tel:[phone] [facility] No Information 6 Bridget Avila. [address] [facility] Physician Office Building, [place], [place], [id number], [place]. tel:[phone] OFFICE/OUTPAT IENT VISIT, [facility], [address] [place] [address], [id number], [place] tel:[phone] [facility] Obesity, Morbid (chief complaint) Body mass index (BMI) 33.0-33.9, adult 7201 5 Steve Bishop. [address] [facility] Physician Office Building, [place], [place], [id number], [place]. tel:[phone] Family History Family Member Type Diagnosis Age At Onset Sister Problem (finding) no hx of CAD Mother Problem (finding) CHF and HTN Brother Problem (finding) Alive and well Sister Problem (finding) 64 Father Problem (finding) [place] with hx of cabg (Cau se Of ) 79 Sister Problem (finding) myocardial inf arct in first degree female relative less than 65 years of age (Cause Of ) 64 Father Problem (finding) Brother Problem (finding) No hx of CAD Payers Payer name Insurance type Covered green party ID Jeremiah espinoza(rod Lees [id number] Social History Type Description Quantity Date Captured [...] review Related to Hyperlipidemia LDL goal <100 Blood pressure is cu rrently under good [...] screening purposes. Related to Shortness of breath Special diet education Related t o Body mass index (BMI) 33.0-33.9, adult Assessments Type Assessment Date No Information Patient Care Teams Name Effective Dates (start - stop) Status Members No Information
--- OUTSIDE RECORDS SUMMARY | 2020-07-25 11:15 | XMS_ITS | Continuity of Care Document ---
Author Organization [facility] Address [address] [place] [address] Phone Care Team Providers Care Clinician Oncology Name Role Phone John Morgan Unavailable Unavailable [...] CHIROPRACTIC MANIPULATION GLYCOSYLATED HEMOGLOBIN TEST OFFICE/OUTPATIENT VISIT, [facility] Advance Directives Directive Yes / No Effective Date File Name No Information Encounters Encounter Description Practice Location Reason(s) For Visit Diagnoses Date Provider Providers Copied on Encounter [facility], [address] [place] [address], [id number] , tel: [phone] [facility] cervical spine (chief complaint) cervical spine (chief complaint) Segmental and somatic dysfunction of cervical regionCervicalgiaSegm ental and somatic dysfunction of lumbar region 9- 1 Eddie Lopez. [address] [place] [address], [id number] , [place]. tel: [phone] [facility], [address] [place] [address], [id number] , tel: [phone] [facility] cervical spine (chief complaint) cervical spine (chief complaint) Segmental and somatic dysfunction of cervical regionCervicalgiaSegm ental and somatic dysfunction of lumbar region 0-201 9 Eddie Lopez. [address] [place] [address], [id number] , [place]. tel: [phone] [facility], [address] [place] [address], [id number] , [place] tel: [phone] [facility] cervical spine (chief complaint) cervical spine (chief complaint) Segmental and somatic dysfunction of cervical regionCervicalgiaSegm ental and somatic dysfunction of lumbar regionLow back pain Jul-0 9-201 9 Eddie Lopez. [address] [place] [address], [id number] , [place]. tel: [phone] [facility], [address] [place] [address], [id number] , [place] tel: [phone] [facility] cervical spine (chief complaint) cervical spine (chief complaint) Segmental and somatic dysfunction of cervical regionCervicalgiaSegm ental and somatic dysfunction of lumbar regionLow back pain 9 Eddie Lopez. [address] [place], [place], [id number] , [place]. tel: [phone] [facility], [address] [place], [place], [id number] , [place] tel: [phone] [facility] cervical spine (chief complaint) cervical spine (chief complaint) Segmental and somatic dysfunction of cervical regionCervicalgiaSegm ental and somatic dysfunction of lumbar regionLow back pain 9 Eddie Lopez. [address] [place], [place], [id number] , [place]. tel: [phone] [facility], [address] [place] [address], [id number] , [place] tel: [phone] [facility] cervical spine (chief complaint) cervical spine (chief complaint) Segmental and somatic dysfunction of cervical regionCervicalgiaSegm ental and somatic dysfunction of lumbar region 8 Eddie Lopez. [address] [place], [place], [id number] , [place]. tel: [phone] [facility], [address] [place] [address], [id number] , [place] tel: [phone] [facility] Spine Care (chief complaint) Segmental and somatic dysfunction of cervical regionCervicalgiaSegm ental and somatic dysfunction of lumbar region 8 Eddie Lopez. [address] [place] [address], [id number] , [place]. tel: [phone] [facility], [address] [place] [address], [id number] , [place] tel: [phone] [facility] Spine Care (chief complaint) Segmental and somatic dysfunction of cervical regionCervicalgiaSegm ental and somatic dysfunction of lumbar region 8 Eddie Lopez. [address] [place], [place], [id number] , [place]. tel: [phone] [facility], [address] [place] [address], [id number] , [place] tel: [phone] [facility] Spine Care (chief complaint) Segmental and somatic dysfunction of cervical regionCervicalgiaSegm ental and somatic dysfunction of lumbar regionOther intervertebral disc degeneration, lumbar region May-0 8 Eddie Lopez. [address] [place], [place], [id number] , [place]. tel: [phone] [facility], [address], [place], [id number] , [place] tel: [phone] [facility] Spine Care (chief complaint) Segmental and somatic dysfunction of lumbar regionLow back painOther intervertebral disc degeneration, lumbar regionSegmental and somatic dysfunction of cervical region Jul-2 0- 8 Eddie Lopez. [address] [place], [place], [id number] , [place]. tel: [phone] [facility], [address] [place] [address], [id number] , [place] tel: [phone] [facility] Spine Care (chief complaint) Segmental and somatic dysfunction of lumbar regionLow back painOther intervertebral disc degeneration, lumbar regionSegmental and somatic dysfunction of cervical region Jun-2 8 Eddie Lopez. [address] [place], [place], [id number] , [place]. tel: [phone] [facility], [address], [place], [id number] , [place] tel: [phone] [facility] Spine Care (chief complaint) Segmental and somatic dysfunction of lumbar regionLow back painOther intervertebral disc degeneration, lumbar regionSegmental and somatic dysfunction of cervical region Jun-2 2- 8 Eddie Lopez. [address] [place], [place], [id number] , [place]. tel: [phone] [facility], [address], [place], [id number] , [place] tel: [phone] [facility] Spine Care (chief complaint) Segmental and somatic dysfunction of lumbar regionLow back painOther intervertebral disc degeneration, lumbar regionSegmental and somatic dysfunction of cervical region Jun- 9- 8 Eddie Lopez. [address] [place], [place], [id number] , [place]. tel: [phone] [facility], [address], [place], [id number] , [place] tel: [phone] [facility] Spine Care (chief complaint) Segmental and somatic dysfunction of lumbar regionLow back painOther intervertebral disc degeneration, lumbar regionSegmental and somatic dysfunction of cervical region Jun-1 5-201 8 Eddie Lopez. [address] [place], [place], [id number] , [place]. tel: [phone] [facility], [address], [place], [id number] , [place] tel: [phone] [facility] Spine Care (chief complaint) Segmental and somatic dysfunction of lumbar regionLow back painOther intervertebral disc degeneration, lumbar regionSegmental and somatic dysfunction of cervical region Jun-1 2-201 8 Eddie Lopez. [address] [place] [address], [id number] , [place]. tel: [phone] [facility], [address] [place], [place], [id number] , [place] tel: [phone] [facility] Spine Care (chief complaint) Segmental and somatic dysfunction of lumbar regionLow back painOther intervertebral disc degeneration, lumbar regionSegmental and somatic dysfunction of cervical region Mar-0 8-201 8 Eddie Lopez. [address] [place], [place], [id number] , [place]. tel: [phone] [facility], [address] [place], [place], [id number] , [place] tel: [phone] [facility] Spine Care (chief complaint) Segmental and somatic dysfunction of lumbar regionLow back painOther intervertebral disc degeneration, lumbar regionSegmental and somatic dysfunction of cervical region Jun-0 5-201 8 Eddie Lopez. [address] [place] [address], [id number] , [place]. tel: [phone] [facility], [address] [place] [address], [id number] , [place] tel: [phone] [facility] Spine Care (chief complaint) Segmental and somatic dysfunction of lumbar regionLow back painOther intervertebral disc degeneration, lumbar regionSegmental and somatic dysfunction of cervical region Mar-0 1- 8 Eddie Lopez. [address] [place], [place], [id number] , [place]. tel: [phone] [facility], [address], [place], [id number] , [place] tel: [phone] [facility] Spine Care (chief complaint) Segmental and somatic dysfunction of lumbar regionLow back painOther intervertebral disc degeneration, lumbar regionSegmental and somatic dysfunction of cervical region Feb-2 6- 8 Eddie Lopez. [address] [place], [place], [id number] , [place]. tel: [phone] [facility], [address] [place] [address], [id number] , [place] tel: [phone] [facility] Spine Care (chief complaint) Segmental and somatic dysfunction of lumbar regionLow back painOther intervertebral disc degeneration, lumbar regionSegmental and somatic dysfunction of cervical region Feb-2 2- 8 Eddie Lopez. [address] [place], [place], [id number] , [place]. tel: [phone] [facility], [address], [place], [id number] , [place] tel: [phone] [facility] Spine Care (chief complaint) Segmental and somatic dysfunction of lumbar regionLow back painOther intervertebral disc degeneration, lumbar regionSegmental and somatic dysfunction of cervical region Feb-2 0- 8 Eddie Lopez. [address] [place], [place], [id number] , [place]. tel: [phone] [facility], [address] [place], [place], [id number] , [place] tel: [phone] [facility] No Information Yan- 7 Eber Ramos. [address] [place], [place], [id number] , [place]. tel: [phone] [facility], [address] [place] [address], [id number] , [place] tel:[phone] [facility] No Information 7 Eber Ramos. [address] [place], [place], [id number] , [place]. tel: [phone] OFFICE/OUTPA TIENT VISIT, [facility], [address], [place], [id number] , [place] tel: [phone] [facility] est care (chief complaint) medication refill (chief complaint) Type 2 diabetes mellitus with hyperglycemiaType 2 DM with diabetic neuropathyInsomnia 7 Eber Ramos. [address] [place] [address], [id number] , [place]. tel: [phone] Family History Family Member Type Diagnosis Age [...] establish care, she recently moved back to [place] from [place]. She is here taking care of her mother. She was seeing Sadie Fritz PROCESS CONTROL MANAGER in [place], states she just had blood work done beginning of June before moving here. A1C today 9.0. Patient states she does not currently have insurance since moving here from [place] and was unable to get her medications [...]
--- OUTSIDE RECORDS SUMMARY | 2025-01-19 16:00 | XMS_ITS | Encounter Summary ---
Author Organization [facility] Address [address] [place] [address] Care Team Providers Care Mill Tender Washing Name Role Phone Sandra Lewis DO Primary Care Provider [phone] Reason for Visit * Reason Comments cognitive decline Encounter Details Date Type Department Care Team (Late st Contact Info) Description 01/19/2025 4:00 PM EDT Office Visit JUMA Ness [facility] Neurology [address] [facility] [address] [place] [phone] Luan Kincaid MD [address] [facility] [address] [place] [address] Weakness of both lower extremities (Primary Dx); Carpal tunnel syndrome, bilateral; Cognitive decline; Cervical paraspinal muscle spasm; B12 deficiency; Guyon syndrome, unspecified laterality Social History Tobacco Use Types Packs/Day Years [...] Sign Reading Time Taken Comments Blood Pressure - - Pulse - - Temperature - - Respiratory Rate - - Oxygen Saturation - - Inhaled Oxygen Concentration - - Weight 88.5 kg (195 lb) 01/19/2025 4:15 PM EDT Height 170.2 cm (5' 7 ) 01/19/2025 4:15 PM EDT Body Mass Index 30.54 01/19/2025 4:15 PM EDT documented in this encounter Progress Notes * Luan Kincaid MD - 01/19/2025 4:00 PM EDTAssociated Problem(s): Weakness of both lower extremities Exam in 6 mo. Pt to call fi sx worsen quickly. * Luan Kincaid MD - 01/19/2025 4:00 PM EDTAssociated Problem(s): Carpal tunnel syndrome, bilateral --- causing hand weakness R29.898. (Continue splints B nightly.) * Luan Kincaid MD - 01/19/2025 4:00 PM EDTAssociated Problem(s): Cognitive decline (Continue current regimen.) * Luan Kincaid MD - 01/19/2025 4:00 PM EDTAssociated Problem(s): Cervical paraspinal muscle spasm (Continue current regimen, home PT.) * Luan Kincaid MD - 01/19/2025 4:00 PM EDTAssociated Problem(s): B12 deficiency (Continue B12 SL.) * Luan Kincaid MD - 01/19/2025 4:00 PM EDTAssociated Problem(s): Guyon syndrome, unspecified laterality (Continue avoiding compression.) * Luan Kincaid MD - 01/19/2025 4:00 PM EDT Images from the original note were not included. Outpatient Progress Note Patient: Kerry Gay Dept: Neurology : 1955 Appt Date: 01/19/2025 Prev Appt: 12/18/2024 Chief Complaint Patient presents with cognitive decline Appointment Note -- 6 mo Assessment and Plan - Assessment & Plan Weakness of both lower extremities Exam in 6 mo. Pt to call fi sx worsen quickly. Carpal tunnel syndrome, bilateral --- causing hand weakness R29.898. (Continue splints B nightly.) Cognitive decline (Continue current regimen.) Cervical paraspinal muscle spasm (Continue current regimen, home PT.) B12 deficiency (Continue B12 SL.) Guyon syndrome, unspecified laterality (Continue avoiding compression.) No orders of the defined types were placed in this encounter. Follow-Up - Follow up in about 6 months (around 07/19/2025). History of Present Illness, Associated Treatments and Results - Dx SLEEP Tx (nortriptyline) AEs Hx No complaints. Failed Semeiology Snoring. No one has observed pt's sleep. Awakenings per night. Unrefreshed AM. Mouth dryAM. Circadian Noct oxim (02/2017) - CACHORRO=3.4 PSG PAPT MSLT MWT Imaging Testing Surgery Dx PN . PAIN . RLS . B12 . RADIC L L5 S1 . (DM . +PO) Tx PGB 300 bid + nortriptyline 25 cyclobenz 10 hs + PT completed B12 SL AEs denies wt gain. Hx Pain - reasonably well controlled. Radic - rev'd MR. Pt has already seen Dr. Serna, who felt that the spine was not severe enough for surgery. Onset Semeiology Burning, paraesthesiae in feet and fingertips; restlessness. Gait ataxia, has to hold onto furniture. Wheelchair for longer distances (e.g. parking lot -> medical office). Imaging MR L-s (11/2023, [facility]) - HNP T12-L1 mild ... errol L5-S1 modB . . . . (11/2023, [facility]) - HNP T12-L1 mild ... canal sten L2-3 mod ... errol sten L2-3 modB L4-5-S1 modB US LE (12/2016, [facility]) - atherosclerosis, nl PVR. Testing [facility] (11/2024) - acute L L5-S1 + PN sev . . . . (11/2023) - acute L S1 (nEMG) + PN pattern signif worse . . . . (03/2017, [facility]) - PN pattern Labs - Z24=578/15/116/>22.3, was 359/16.7H/328/>22.3 ... A1c=8.4, was 10.4(!) ,,, PO=1:320, was 1:80 but subtests nl. . . [...] - end of Mar pt adm to [facility] for gen weakness & slurred speech, [...] brain (03/2024) - never done during adm [facility] due to metal . . . . (10/2023, [facility]) - atrophy age-appropriate & ^T2/FLAIR CTA head (03/2024, [facility]) - no stenoses CTA neck(03/2024, [facility]) - < 20% B Testing (q.v.) ... Oximetry - done regularly, reported as nl Surgery Failed Dx CTS . MYOFASCIITIS Tx splints (+ PGB) + inj (12/2023 B) PT ongoing AEs Hx Surgery improved sx but see exam. Myofasciitis - Improved with PT, but inconsistent due to transportation. Onset Semeiology Numbness B; weakness R. Imaging Testing [facility] (11/2024) - DMLs 5.3R 4.7L sens CVs NR-R 43L ... ulnar DMLs 3.9R 3.6L sens CVs 45R 55L elb CV 40R 42L . . . . (11/2023) - DMLs 5.2R 5.0L sens CVs _ 40L ... ulnar DMLs 3.9R 3.3L sens CVs 29R 47L . . . . (01/2018) - DMLs 4.5R 5.3L . . . . (11/2016) - DMLs 5.2R 4.4L. Labs - A1c=6.[address] release R (07/2017, [facility]). Failed CONTRA - inj (DM). cyclobenz Physical Exam - General appearance, mentation, extraocular movements, facial strength and movement, hearing, upper and lower extremity strength and tone, sensation to gross testing, coordination, and gait are normalor at baseline unless noted below. HEENT - ___, unchanged: Tongue very large ... Mallampati IV, orig: ___ MS - ___, unchanged: ___, orig: ___ CNN - ___, unchanged: ___, orig: ___ Motor - TA 5-L, unchanged: ___, orig: Grants Officer 4B ... APB 4R 4+L Sens - ___, unchanged: Vibr, temp loss distal LEs ... NO hyperpathia, allodynia ... Tinel's -B (were +), orig: Tinel's +R Reflex - ___, unchanged: KJ 0L ... AJ 0B, orig: KJ 1B Coord - ___, unchanged: (Wheelchair), orig: Romberg 1+ Gait - ___, unchanged: Stride very short, orig: Wide, quite atactic ... Tandem 3+ Vestib - ___, unchanged: ___, orig: ___ MSK - Spasm - Tr C L mod, unchanged: ___, orig: ___ Other - ___, unchanged: ___, orig: ___ Vital Signs - Visit Vitals Ht 5' 7 Wt 195 lb BMI 30.54 kg/m?? Smoking Status Every Day BSA 2.05 m?? Review of Systems - . Const: Denies [...] smear of cervix hpv positive COVID-19 Diabetes (HCC) Fibromyalgia High cholesterol History of medical problems ulcer HTN (hypertension) Neuropathy Rheumatoid arthritis (HCC) Scarlet fever Stomach ulcer Tonsillitis Past Surgical History: Procedure Laterality Date BIOPSY 04/2020 vulvar CARPAL TUNNEL RELEASE Right 2018 COLPOSCOPY 01/21/2017 COLPOSCOPY 09/2018 COLPOSCOPY 10/2019 COLPOSCOPY 09/2021 ESOPHAGEAL DILATION HYSTERECTOMY PARTIAL HYSTERECTOMY [place] VULVECTOMY SIMPLE PARTIAL 12/2018 TONSILLECTOMY VULVECTOMY 12/2017 Allergies Allergen Reactions Sulfa Antibiotics GI intolerance and Unknown Family History Problem Relation Name Age of Onset Hypertension Mother Heart disease Mother Stroke Mother Stroke Father Heart disease Father Cancer Father Bipolar disorder Sister Diabetes Sibling Mental illness Daughter Diabetes Son Outpatient Encounter Medications as of 01/19/2025 Medication Sig Dispense Refill sertraline (Zoloft) 50 MG tablet Take 50 mg by mouth Daily aspirin 81 MG EC tablet Take 81 mg by mouth in the morning. carvedilol (Coreg) 12.5 MG tablet Take 12.5 mg by mouth in the morning and 12.5 mg in the evening. Take with meals. Continuous Blood Gluc Sensor (HepatoChemyle Brent 14 Day Sensor) [facility] apply 1 SENSOR as directed every 14 days use with DEVICE to MONIT... (REFER TO PRESCRIPTION NOTES). cyanocobalamin (Vitamin B-12) 2500 MCG tablet Docusate Sodium (DSS) 100 MG capsule Take 100 mg by mouth in the morning and 100 mg in the evening. donepezil (Aricept) 10 MG tablet 2 tabs QAM 60 tablet 5 Droplet Pen Amity 32G X 4 MM [facility] use 1 PEN NEEDLE to inject MEDICATION [...] facility-administered encounter medications on file as of 01/19/2025. Luan Kincaid M.D. [facility] ? [address] ? [place], [place] [address] ? ? fax Neurology ? Clinical Neurophysiology ? Epilepsy ? Sleep Disorders ? Clinical Informatics documented in this encounter Plan of Treatment Upcoming Encounters Date Type Department Care Team (Late st Contact Info) Description 02/04/2025 12:30 PM EDT Office Visit JUMA NUNN [address] [place] [phone] Nereida Castro MD [address] [place] [address] 02/10/2025 1:00 PM EDT Office Visit [facility]N [address] [facility] [address] [place] [address] Nereida Castro MD [address] [facility] [address] [place] [address] 07/20/2025 4:00 PM EDT Office Visit [facility] [place] [address] [facility] [address] [place] [address] Luan Kincaid MD [address] [facility] [place] [phone] documented as of this encounter Visit Diagnoses Diagnosis Weakness of both lower extremities- Primary Carpal tunnel syndrome, bilateral Carpal tunnel syndrome Cognitive decline Cervical paraspinal muscle spasm Spasm of muscle B12 deficiency Guyon syndrome, unspecified laterality documented in this encounter Care Teams Mill Tender Washing Relationship Specialty Start Date End Date Sandra Lewis DO [address] [facility] [place] [phone] PCP - General Family Medicine 10/15/24 documented as of this encounter
--- OUTSIDE RECORDS SUMMARY | 2025-01-19 16:02 | XMS_ITS ---
Author Name Auto Generated Organization OHIP Support Name Relationship Address Phone DEBORED, TON Next of Kin [address] [place] [id number] + SHIKHA PAZ Next of Kin Unknown [phone] DEBORED, TON Next of Kin [address] [place] [phone] + SHIKHA PAZ Next of Kin Unknown [phone] DEBORDE, TON Next of Kin Unknown [phone] [address], [place] [address] + Shikha Paz Next of Kin Unknown [phone] DEBORED, TON Next of Kin [address] [place] [address] [place] [address] + SHIKHA PAZ Next of Kin Unknown [phone] DEBORED, TON Next of Kin [address] [place] [address], [place] [address] + SHIKHA PAZ Next of Kin Unknown [phone] DEBORED, TON Next of Kin [address] [place] [address] [place] [address] + SHIKHA PAZ Next of Kin Unknown [phone] Deborde, [place] [address] + Shikha Paz Next of Kin Unknown [phone] DEBORED, TON Next of Kin [address] [place] [address] [place] [address] + SHIKHA PAZ Next of Kin Unknown [phone] DEBORED, TNO Next of Kin [address] [place] [address], [place] [address] + SHIKHA PAZ Next of Kin Unknown [phone] DEBORED, TON Next of Kin [address] [facility] [place] [address] + SILVIS, SHIKHA Next of Kin Unknown [phone] Deborde, [place] [address] + [place], Shikha Next of Kin Unknown [phone] Deborde, [place] [address] + [place], Shikha Next of Kin Unknown [phone] DEBORED, TON Next of Kin [address] [facility] [place] [address] + SILVIS, SHIKHA Next of Kin Unknown [phone] Deborde, [place] [address] + [place], Shikha Next of Kin Unknown [phone] Deborde, [place] [address] + [place], Shikha Next of Kin Unknown [phone] Deborde, [place] [address] + [place], Shikha Next of Kin Unknown [phone] DEBORDE, TON Next of Kin Unknown [phone] Deborde, [place] [address] + [place], Shikha Next of Kin Unknown [phone] Deborde, [place] [address] + [place], Shikha Next of Kin Unknown [phone] Deborde, [place] [address] + [place], Shikha Next of Kin Unknown [phone] DEBORED, TON Next of Kin [address] [facility] [place] [address] + DEBORED, TON Next of Kin [address] [facility] [place] [address] + DEBORDE, TON Next of Kin Unknown [phone] DEBORED, TON Next of Kin [address] [facility] [place] [address] + [place] [address] + BrandiShikha Next of Kin Unknown [phone] DEBORED, TON Next of Kin [address] [facility] [place] [address] + Care Team Providers Care Display Screen Fabricator Name Role Phone THUAN WISE Attending Unavailable TRABANA MARÍA, MOURKAELAF Referring Unavailable ROHRBACHER, SHANTEL A Primary Care Unavailab le TRABOULJOANNE, PHILIPHAF Attending Unavailable TRABCATHERINEI, MOGAYHAF Referring Unavailable LEWIS, SANDRA A Primary Care Unavailable TRABHAN GOTTIF Attending Unavailable JONAS AMEZCUA Referring Unavailable LEWIS, SANDRA A Primary Care Unavailable Lit Clark Consulting Unavailab Priscilla Kovacs Attending Unavailable Lewis, Sandra A Primary Care Unavailable Jori Hearn Admitting Unavailable Lewis, Sandra A Admitting Unavailable Lewis, Sandra A Attending Unavailable Lewis, Sandra A Primary Care Unavailable Lewis, Sandra A Primary Care Unavailable Trabana maría, Hanf Attending Unavailable Govind, Modenilsonf Admitting Unavailable Angelique Russell Consulting Unavailable Tray Nava Attending Unavailabl e LangTray mckinnon Admitting Unavailabl e Lewis, Sandra A Primary Care Unavailable Asaad, Imad Attending Unavailable Asaad, Imad Admitting Unavailable Lewis, Sandra A Primary Care Unavailable lR Daily Attending Unavailable Rl Daily Admitting Unavailable Lewis, Sandra A Primary Care Unavailable DembosNataliya holly Attending Unavail able DemboskeNataliya Admitting Unavail able Lewis, Sandra A Primary Care Unavailable Oz Kincaid Referring Unavailable Asaad, Imad Attending Unavailable Asaad, Imad Admitting Unavailable Lewis, Sandra A Primary Care Unavailable Deneen Frost Attending Unavailable Deneen Frost Admitting Unavailable Karl Fritz Attending Unavailable Karl Fritz Admitting Unavailable Shikha Medina Attending Unavailable Shikha Medina Admitting Unavailable Ashleyacher, Shantel Primary Care Unavailable KARL FRITZ Attending Unavailable OZ KINCAID Attending Unavailable OZ KINCAID Attending Unavailable KARL FRITZ Attending Unavailable OZ KINCAID Attending Unavailable OZ KINCAID Attending Unavailable KARL FRITZ Attending Unavailable KARL FRITZ Attending Unavailable KARL FRITZ Attending Unavailable OZ KINCAID Attending Unavailable OZ KINCAID Referring Unavailable OZ KINCAID Attending Unavailable OZ KINCAID Referring Unavailable OZ KINCAID Referring Unavailable OZ KINCAID Attending Unavailable Monico VARGAS, Halie Doss Attending Unavailable Monico VARGAS, Halie Doss Attending Unavailable PROBLEMS DATE TYPE CONDITION / CODE ATTENDING STATUS [facility] 12/30/2024 Admitting Diagnosis Obesity, unspecified / E66.9(ICD-10) [facility] 11/13/2023 Admitting Diagnosis Nicotine dependence, unspecified, uncomplicated / F17.200(ICD-10) [facility] 10/07/2023 Admitting Diagnosis Other cardiomyopathies / I42.8(ICD-10) [facility] 10/07/2023 Admitting Diagnosis Typical atrial flutter (Multi) / I48.3(ICD-10) [facility] 09/17/2023 Admitting Diagnosis Essential (primary) hypertension / I10(ICD-10) [facility] 09/17/2023 Admitting Diagnosis Pure hypercholesterolemia, unspecified / E78.00(ICD-10) [facility] 12/24/2024 Unknown Obstructive slee p apnea (adult) (pediatric) / G47.33(ICD-10) Shikha Medina [facility] 11/16/2024 Unknown 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 / L97.512(ICD-10) Karl Fritz [facility] 09/10/2024 Unknown Dysphagia, unspe cified / R13.10(ICD-10) Asaad, Imad [facility] 07/22/2024 Unknown Peripheral vascu lar disease, unspecified / I73.9(ICD-10) Tray Nava [facility] 06/26/2024 Unknown Secondary polycy themia / D75.1(ICD-10) Nataliya Jane [facility] 06/26/2024 Unknown Type 2 diabetes mellitus with hyperglycemia / E11.65(ICD-10) [facility] 06/26/2024 Unknown Hyperlipidemia, unspecified / E78.5(ICD-10) [facility] 06/26/2024 Admitting Diagnosis Body mass index (BMI) 32.0-32.9, adult / Z68.32(ICD-10) [facility] 04/28/2024 Unknown Transient cerebr al ischemic attack, unspecified / G45.9(ICD-10) [facility] 04/28/2024 Unknown Paroxysmal atria l fibrillation / I48.0(ICD-10) [facility] 04/28/2024 Unknown Weakness / R53.1(ICD-10) [facility] 04/28/2024 Unknown Type 2 diabetes mellitus without complications / E11.9(ICD-10) [facility] 04/28/2024 Unknown Hypothyroidism, unspecified / E03.9(ICD-10) [facility] 04/28/2024 Unknown Hypomagnesemia / E83.42(ICD-10) [facility] 04/27/2024 Unknown Dizziness and giddiness / R42(ICD-10) Rl Daily [facility] PROCEDURES No Procedure Records Found RESULTS MR LUMBAR SPINE WO CONTRAST Observed: 3:43 PM Status: F Source: [facility] EPIC EXAM: MR LUMBAR SPINE WO CON TRAST History: Low back pain with radiculopathy. Leg [...] stability. ELECTRONICALLY SIGNED BY: Almas Reeves DO SUPERFICIAL WOUND CULTURE Observed: 10/28 4:48 PM Status: F Source: [facility] ORGANISM: Klebsiella oxytoca (O:KLEOXY) Quantity of Growth Moderate Growth ORGANISM: Staphylococcus aureus (O:STAAUR) Quantity of Growth Heavy Growth Aerobic FAMILIA Charge (NMIC56) SUSCEPTIBILITY ORGANISM: O:KLEOXY ANTIBIOTIC INTERPRETATION FAMILIA Amikacin [...] <4 Tigecycline S <2 Tobramycin S <2 Trimethoprim/Sulfamethoxazole S <0.5 Aerobic FAMILIA Charge (PCMIC38) SUSCEPTIBILITY ORGANISM: O:STAAUR ANTIBIOTIC INTERPRETATION FAMILIA Azithromycin S <2 Ceftaroline S <0.5 Ciprofloxacin S <1 Clindamycin S 0.5 Daptomycin S 1 Levofloxacin S <1 Linezolid S 2 Oxacillin S <0.25 Penicillin R >2 Tetracycline S <4 Trimethoprim/Sulfamethoxazole S <0.5 Vancomycin S 1 S = [...] RESISTANT TO ALL B-LACTAM DRUGS. PERFORMED BY: [place] [address] PATHOLOGIST TRUCK STRIKER BENNIE HIGGINBOTHAM M.D. Performed By: #### CUSUP ### # [address] PATHOLOGY REQUEST FOR LAB ARON Collected: 09/10/2024 12:36 PM Status: F Source: [facility] Order Comment: GI SPECIMEN TYPE CODE TESTS RESULT OUT OF RANGE REFERENCE UNITS LAB PATH TO [facility] Pathology Request for Lab Aron Result Comment: See report. Scanned copy available in EMR. PERFORMED BY: [place] [address] PATHOLOGIST TRUCK STRIKER LE MACE M.D. Performed By: #### PATH TO [facility] #### [address] [place] [address] [place] GLUCOSE POCT GLUCOMETERS Collected: 09/10/2024 11:17 AM Status: F Source: [facility] TYPE CODE TESTS RESULT OUT OF RANGE REFERENCE UNITS LAB GLUPOC Glucose Poc Glucometers 234 mg/dL Result Comment: Random Gluco se Reference Range is dependent on time and content of last meal. Glucose of more than 200 mg/dL in a nonstressed, ambulatory subject supports the diagnosis of Diabetes Mellitus. LAB COMM1 Commemt1 Glu2: Cleaned Meter Result Comment: PERFORMED BY : [place] [id number] PATHOLOGIST TRUCK STRIKER LE MACE M.D. Performed By: #### GLULS ### # Point of Care testing , US ANKLE/ARM INDICES Observed: 9:20 AM Status: COMPLETED Source: [facility] [address] [place] [address] Ultrasound Report Signed Patient: Kerry Marcos MR#: [id number] 19 : 1955 Acct:[id number] Age/Sex: 68 / F ADM Date: 07/22/24 Loc: [facility] Room: Type: [facility] Attending Dr: Tray Nava MD Ordering Provider: [...] Eugenio Rob M.D.07/23/2024 9:21 AM Dictation Location: [facility] Tech: Carmelita Horowitz Transcribed By: [facility] 07/23/24920 Dictated By: Eugenio Rob MD 07/23/24919 Signed By: <Electronically signed by MD Eugenio Rob in OV> 07/23/24920 URINE CULTURE Observed: 07/06/2024 8:37 PM Status: F Source: [facility] ORGANISM: Klebsiella oxytoca (O:KLEOXY) Fine Count >100,000 Aerobic FAMILIA Charge (NMIC56) SUSCEPTIBILITY ORGANISM: O:KLEOXY ANTIBIOTIC INTERPRETATION FAMILIA Amikacin [...] <4 Tigecycline S <2 Tobramycin S <2 Trimethoprim/Sulfamethoxazole S 11/19 S = SUSCEPTIBLE I = [...] RESISTANT TO ALL B-LACTAM DRUGS. PERFORMED BY: [address] [address] PATHOLOGIST TRUCK STRIKER LE MACE M.D. Performed By: #### CUU #### [facility] [address] [place], [place] [id number] [facility] MICROALB CREAT RATIO,U Collected: 06/26 10:49 AM Status: F Source: [facility] TYPE CODE TESTS RESULT OUT OF RANGE REFERENCE UNITS LAB UMAT Microalbumin , Urine <0.7 Normal 0.0-1.8 mg/dL LAB UCREA Creatinine, Urine (Random) 65.00 mg/dL Result Comment: No reference range established LAB MACREATRATIO Microalbumin /Creatinine Ratio Test not performed 0.0-30.0 Result Comment: PERFORMED BY : [place] [address] PATHOLOGIST TRUCK STRIKER LE MACE M.D. Performed By: #### URMACCECILE T #### [place] [id number] [facility] B-TYPE NATRIURETIC PEPTIDE Collected: 06/26/2024 10:4 8 AM Status: F Source: [facility] TYPE CODE TESTS RESULT OUT OF RANGE REFERENCE UNITS LAB BNP B-Type Natriuretic Peptide 54.0 Normal 5-100 pg/mL Result Comment: PERFORMED BY : [place] [address] PATHOLOGIST TRUCK STRIKER LE MACE M.D. Performed By: #### BNP #### [address] LIPID PANEL Collected: 06/26/2024 10:48 AM Status: F Source: [facility] TYPE CODE TESTS RESULT OUT OF RANGE REFERENCE UNITS LAB CHOL Cholesterol 93 Low 140-200 mg/dL Result Comment: Chol less th an 200 mg/dl low risk Chol 201-239 mg/dl borderline risk Chol 240 mg/dl and greater high risk LAB HDL HDL Cholesterol 27 Normal 23-92 mg/dL Result Comment: HDL CHOL ATP -III CLASSIFICATION Cardiovascular Risk HDL > or equal to 60 mg/dL LOW HDL < 40 mg/dL HIGH LAB TRIG W REF Triglyceride w/Reflex 162 High 0-149 mg/dL Result Comment: TRIG ATP III CLASSIFICATION TRIG less than 150 mg/dL Normal TRIG 150-199 mg/dL Borderline high TRIG 200-500 mg/dL High TRIG greater than 500 mg/dL Very high Standard traceable to the Center for Disease Conrtrol and Prevention (CDC) test method. LAB LDLC LDL Cholesterol,Calc ulated 34 Normal 0-100 mg/dL Result Comment: LDL ATP III CLASSIFICATION LDL less than 100 mg/dL Optimal LDL 100-129 mg/dL Near or above optimal LDL 130-159 mg/dL Borderline high LDL 160-189 mg/dL High LDL greater than 189 mg/dL Very high LAB VLDL VLDL CHOLESTEROL 32 mg/dL LAB CHLHDL Chol/HDL Ratio 3.4 <5.0 Performed By: #### TSH3 wRFL X, LIPID #### [facility] [address] [place] [address] THYROID STIM HORMONE W/RFLX Collected: 06/26/2024 10:48 AM Status: F Source: [facility] TYPE CODE TESTS RESULT OUT OF RANGE REFERENCE UNITS LAB TSH3 wRFLX Thyroid Stim Hormone w/Rflx 1.45 Normal 0.45-5.33 u[iU]/mL Result Comment: PERFORMED BY : [place] [address] PATHOLOGIST TRUCK STRIKER LE MACE M.D. Performed By: #### TSH3 wRFL X, LIPID #### [address] COMPREHENSIVE METABOLIC PANEL Collected: 06/26/2024 1 0:47 AM Status: F Source: [facility] TYPE CODE TESTS RESULT OUT OF RANGE REFERENCE UNITS LAB GLU Glucose 256 High 70-100 mg/dL Result Comment: Random Gluco se Reference Range is dependent on time and content of last meal. Glucose of more than 200 mg/dL in a nonstressed, ambulatory subject supports the diagnosis of Diabetes Mellitus. ADA recommended reference range LAB BUN Blood Urea Nitrogen 9 Normal 7-25 mg/d L LAB CREATT Creatinine 0.93 Normal 0.60-1.20 mg/dL LAB GFReNR Estimated GFR >60.0 mL/Min LAB NA Sodium 140 Normal 136-145 mmol/L LAB K Potassium 4.2 Normal 3.5-5.1 mmol/L LAB CL Chloride 103 Normal 98-107 mmol/L LAB CO2 Carbon Dioxide 29.0 Normal 21.0-31.0 mmol/L LAB GAP Anion Gap 12.2 Normal 6.0-15.0 meq/L LAB CA Calcium 9.4 Normal 8.6-10.3 mg/dL LAB TP Total Protein 6.4 Normal 6.4-8.9 g/dL LAB ALB Albumin Level 3.8 Normal 3.5-5.7 g/dL LAB GLOB Globulin 2.6 g/dL LAB AGRATIO Albumin/Globulin Ratio 1.5 LAB BILIT Bilirubin,Total 0.4 Normal 0.3-1.0 mg/dL LAB AST Aspartate Amino Transferase 36 Normal 13-39 U/L LAB ALT Alanine Aminotransferase 23 Normal 7-52 U/L LAB ALP Alkaline Phosphatase 92 Normal 34-104 U/L Result Comment: PERFORMED BY : [place] [address] PATHOLOGIST TRUCK STRIKER LE MACE M.D. Performed By: #### CMP #### [address] COMPLETE BLOOD COUNT AUTO DIFF Collected: 06/26/2024 10:46 AM Status: F Source: [facility] TYPE CODE TESTS RESULT OUT OF RANGE REFERENCE UNITS LAB WBC White Blood Count 6.9 Normal 3.8-11.6 10*3/uL LAB UNWBC Uncorrected WBC 6.9 Normal 3.8-11.6 10*3/uL LAB RBC Red Blood Count 4.86 Normal 3.60-5.00 10*6/u L LAB HGB Hemoglobin 15.8 High 11.8-15.4 g/dL LAB HCT Hematocrit 46.4 Normal 34.0-46.4 % LAB MCV Mean Corpuscular Volume 95.3 Normal 80-100 fL LAB MCH Mean Corpuscular Hemoglobin 32.6 Normal 24.7-34.3 pg LAB MCHC Mean Corpuscular HGB Conc 34.2 Normal 32.0-35.0 g/dL LAB RDW Red Cell Distribution Width 14.6 Normal 11.9-15.3 % LAB PLT Platelet Count 120 Low 150-450 10*3/uL LAB MPV Mean Platelet Volume 10.4 Normal 6.3-10.7 fL LAB NE% Neutrophils % (Auto) 67.1 . % LAB LY% Lymphocytes % (Auto) 23.1 . % LAB MO% Monocytes % (Auto) 6.6 . % LAB EO% Eosinophils % (Auto) 2.7 . % LAB BA% Basophils % (Auto) 0.5 . % LAB NRBC% NRBC% 0.1 Normal 0-0.5 /100{WBC} LAB NE# Neutrophils # (Auto) 4.6 Normal 1.8-7.7 10*3/uL LAB LY# Lymphocytes # (Auto) 1.6 Normal 1.00-4.8 10*3/uL LAB MO# Monocytes # (Auto) 0.5 Normal 0.0-0.8 10*3/uL LAB EO# Eosinophils # (Auto) 0.2 Normal 0.0-0.45 10*3/uL LAB BA# Basophils # (Auto) 0.0 Normal 0.0-0.2 10*3/uL Result Comment: PERFORMED BY : [place] [address] PATHOLOGIST TRUCK STRIKER LE MACE M.D. Performed By: #### CBC #### [address] FLOWCYTOMETRY NEOGENOMIC Collected: 06/26/2024 10:44 AM Status: F Source: [facility] TYPE CODE TESTS RESULT OUT OF RANGE REFERENCE UNITS LAB FLOW NEOGENOMIC Flowcytometry Neogenomic Result Comment: See report. Scanned copy available in EMR. Performed By: #### BCRABL NE OGENOM, FLOW NEOGENOMIC, FERDINAND 2 NEOGENOMI #### [address] FERDINAND 2 NEOGENOMIC Collected: 06/26/2024 10:44 AM Stat us: F Source: [facility] TYPE CODE TESTS RESULT OUT OF RANGE REFERENCE UNITS LAB FERDINAND 2 NEOGENOMI FERDINAND 2 Neogenomic Result Comment: See report. Scanned copy available in EMR. Performed By: #### BCRABL NE OGENOM, FLOW NEOGENOMIC, FERDINAND 2 NEOGENOMI #### [place] [id number] [facility] BCR-ABL NEOGENOMIC Collected: 06/26/2024 10:[address] atus: F Source: [facility] TYPE CODE TESTS RESULT OUT OF RANGE REFERENCE UNITS LAB BCRABL NEOGENOM BCR-ABL Neogenomic Result Comment: See report. Scanned copy available in EMR. PERFORMED BY: [place] [address] PATHOLOGIST TRUCK STRIKER LE MACE M.D. Performed By: #### BCRABL NE OGENOM, FLOW NEOGENOMIC, FERDINAND 2 NEOGENOMI #### [facility] [address] [place] [address] MR HEAD/BRAIN WO/W CON Observed: 025 7:54 PM Status: COMPLETED Source: [facility] [place] [address] [place] [address] MRI Report Signed Patient: Kerry Marcos MR#: [id number] 19 : 1955 Acct:[id number] Age/Sex: 68 / F ADM Date: 05/25/24 Loc: Room: Type: [facility] Attending Dr: Sandra Lewis DO Copies to: Sandra Lewis DO Ordering Provider: Sandra Lewis DO Date of Service: 05/25/24 MR/MR head/brain [...] Eugenio Lazo M.D.05/25/2024 7:59 PM Dictation Location: [facility] Transcribed By: PWS 05/25/241958 Dictated By: Eugenio Lazo DO 05/25/241953 Signed By: <Electronically signed by Eugenio Lazo DO in OV> 05/25/241958 GLUCOSE POCT GLUCOMETERS Collected: 04/30/2024 11:32 AM Status: F Source: [facility] TYPE CODE TESTS RESULT OUT OF RANGE REFERENCE UNITS LAB GLUPOC Glucose Poc Glucometers 154 mg/dL Result Comment: Random Gluco se Reference Range is dependent on time and content of last meal. Glucose of more than 200 mg/dL in a nonstressed, ambulatory subject supports the diagnosis of Diabetes Mellitus. PERFORMED BY: [address] [place] [address] PATHOLOGIST TRUCK STRIKER LE MACE M.D. Performed By: #### GLULS ### # Point of Care testing , GLUCOSE POCT GLUCOMETERS Collected: 04/30/2024 6:45 A M Status: F Source: [facility] TYPE CODE TESTS RESULT OUT OF RANGE REFERENCE UNITS LAB GLUPOC Glucose Poc Glucometers 134 mg/dL Result Comment: Random Gluco se Reference Range is dependent on time and content of last meal. Glucose of more than 200 mg/dL in a nonstressed, ambulatory subject supports the diagnosis of Diabetes Mellitus. PERFORMED BY: [facility] [address] [place] [address] PATHOLOGIST TRUCK STRIKER LE MACE M.D. Performed By: #### GLULS ### # Point of Care testing , COMPLETE BLOOD COUNT AUTO DIFF Collected: 04/30/2024 5:31 AM Status: F Source: [facility] TYPE CODE TESTS RESULT OUT OF RANGE REFERENCE UNITS LAB WBC White Blood Count 7.3 Normal 3.8-11.6 10*3/uL LAB UNWBC Uncorrected WBC 7.3 Normal 3.8-11.6 10*3/uL LAB RBC Red Blood Count 4.70 Normal 3.60-5.00 10*6/u L LAB HGB Hemoglobin 14.7 Normal 11.8-15.4 g/dL LAB HCT Hematocrit 44.3 Normal 34.0-46.4 % LAB MCV Mean Corpuscular Volume 94.4 Normal 80-100 fL LAB MCH Mean Corpuscular Hemoglobin 31.4 Normal 24.7-34.3 pg LAB MCHC Mean Corpuscular HGB Conc 33.3 Normal 32.0-35.0 g/dL LAB RDW Red Cell Distribution Width 15.4 High 11.9-15.3 % LAB PLT Platelet Count 119 Low 150-450 10*3/uL LAB MPV Mean Platelet Volume 9.5 Normal 6.3-10.7 fL LAB NE% Neutrophils % (Auto) 63.5 . % LAB LY% Lymphocytes % (Auto) 24.9 . % LAB MO% Monocytes % (Auto) 8.3 . % LAB EO% Eosinophils % (Auto) 2.9 . % LAB BA% Basophils % (Auto) 0.4 . % LAB NRBC% NRBC% 0.0 Normal 0-0.5 /100{WBC} LAB NE# Neutrophils # (Auto) 4.6 Normal 1.8-7.7 10*3/uL LAB LY# Lymphocytes # (Auto) 1.8 Normal 1.00-4.8 10*3/uL LAB MO# Monocytes # (Auto) 0.6 Normal 0.0-0.8 10*3/uL LAB EO# Eosinophils # (Auto) 0.2 Normal 0.0-0.45 10*3/uL LAB BA# Basophils # (Auto) 0.0 Normal 0.0-0.2 10*3/uL Result Comment: PERFORMED BY : [place] [address] PATHOLOGIST TRUCK STRIKER LE MACE M.D. Performed By: #### CMP, MG, PHOS, CBC #### [address] COMPREHENSIVE METABOLIC PANEL Collected: 04/30/2024 5 :31 AM Status: F Source: [facility] TYPE CODE TESTS RESULT OUT OF RANGE REFERENCE UNITS LAB GLU Glucose 130 High 70-100 mg/dL Result Comment: Random Gluco se Reference Range is dependent on time and content of last meal. Glucose of more than 200 mg/dL in a nonstressed, ambulatory subject supports the diagnosis of Diabetes Mellitus. ADA recommended reference range LAB BUN Blood Urea Nitrogen 9 Normal 7-25 mg/d L LAB CREATT Creatinine 0.80 Normal 0.60-1.20 mg/dL LAB GFReNR Estimated GFR >60.0 mL/Min LAB NA Sodium 140 Normal 136-145 mmol/L LAB K Potassium 3.8 Normal 3.5-5.1 mmol/L LAB CL Chloride 106 Normal 98-107 mmol/L LAB CO2 Carbon Dioxide 26.9 Normal 21.0-31.0 mmol/L LAB GAP Anion Gap 10.9 Normal 6.0-15.0 meq/L LAB CA Calcium 9.3 Normal 8.6-10.3 mg/dL LAB TP Total Protein 6.4 Normal 6.4-8.9 g/dL LAB ALB Albumin Level 3.5 Normal 3.5-5.7 g/dL LAB GLOB Globulin 2.9 g/dL LAB AGRATIO Albumin/Globulin Ratio 1.2 LAB BILIT Bilirubin,Total 0.5 Normal 0.3-1.0 mg/dL LAB AST Aspartate Amino Transferase 23 Normal 13-39 U/L LAB ALT Alanine Aminotransferase 16 Normal 7-52 U/L LAB ALP Alkaline Phosphatase 85 Normal 34-104 U/L LAB CRCLPHA Creatinine Clr [facility] 82.38 Performed By: #### CMP, MG, PHOS, CBC #### [address] PHOSPHORUS Collected: 5 5:31 AM Status: F Source: [facility] TYPE CODE TESTS RESULT OUT OF RANGE REFERENCE UNITS LAB PHOS Phosphorus 2.9 Normal 2.5-4.5 mg/dL Performed By: #### CMP, MG, PHOS, CBC #### [address] MAGNESIUM Collected: 5 5:31 AM Status: F Source: [facility] TYPE CODE TESTS RESULT OUT OF RANGE REFERENCE UNITS LAB MG Magnesium 1.7 Low 1.9-2.7 mg/dL Result Comment: PERFORMED BY : [place] [address] PATHOLOGIST TRUCK STRIKER LE MACE M.D. Performed By: #### CMP, MG, PHOS, CBC #### [address] [address] [facility] GLUCOSE POCT GLUCOMETERS Collected: 04/29/2024 8:48 P M Status: F Source: [facility] TYPE CODE TESTS RESULT OUT OF RANGE REFERENCE UNITS LAB GLUPOC Glucose Poc Glucometers 165 mg/dL Result Comment: Random Gluco se Reference Range is dependent on time and content of last meal. Glucose of more than 200 mg/dL in a nonstressed, ambulatory subject supports the diagnosis of Diabetes Mellitus. PERFORMED BY: [place] [address] PATHOLOGIST TRUCK STRIKER LE MACE M.D. Performed By: #### GLULS ### # Point of Care testing , DRUG SCREEN,URINE Collected: 04/29/2024 5:13 PM Stat us: F Source: [facility] TYPE CODE TESTS RESULT OUT OF RANGE REFERENCE UNITS LAB URAMPS Amphetamine Screen,Urine Negative Negative LAB URBARBS Barbiturate Screen,Urine Negative Negative LAB URBENZS Benzodiazepines Screen,Urine Negative Negative LAB URCOCS Cocaine Screen,Urine Negative Negative LAB UROPIS Opiate Screen,Urine Negative Negative LAB URPCPS Phencyclidine Screen,Urine Negative Negative LAB URTHCS Cannabinoid Screen,Urine Negative Negative Result Comment: These are un confirmed results and should not be used for legal purposes. Drug Cut-Off Concentration: AMPH 1000 ng/mL KENDRICK 200 ng/mL HEATHER 200 ng/mL COCM 300 ng/mL OP 300 ng/mL PCP 25 ng/mL THC 20 ng/mL PERFORMED BY: [place] [address] PATHOLOGIST TRUCK STRIKER LE MACE M.D. Performed By: #### URDS, CUU #### [place] [id number] [facility] URINE CULTURE Observed: 04/29/2024 5:13 PM Status: F Source: [facility] 15,000 colonies/ml mixed bacterial skin contaminants 2 Days PERFORMED BY: [address] [address] PATHOLOGIST TRUCK STRIKER LE MACE M.D. Performed By: #### URDS, CUU #### [address] [address] [facility] GLUCOSE POCT GLUCOMETERS Collected: 04/29/2024 4:12 P M Status: F Source: [facility] TYPE CODE TESTS RESULT OUT OF RANGE REFERENCE UNITS LAB GLUPOC Glucose Poc Glucometers 188 mg/dL Result Comment: Random Gluco se Reference Range is dependent on time and content of last meal. Glucose of more than 200 mg/dL in a nonstressed, ambulatory subject supports the diagnosis of Diabetes Mellitus. LAB COMM1 Commemt1 Glu2: Cleaned Meter Result Comment: PERFORMED BY : [address] [address] PATHOLOGIST TRUCK STRIKER LE MACE M.D. Performed By: #### GLULS ### # Point of Care testing , GLUCOSE POCT GLUCOMETERS Collected: 04/29/2024 11:34 AM Status: F Source: [facility] TYPE CODE TESTS RESULT OUT OF RANGE REFERENCE UNITS LAB GLUPOC Glucose Poc Glucometers 192 mg/dL Result Comment: Random Gluco se Reference Range is dependent on time and content of last meal. Glucose of more than 200 mg/dL in a nonstressed, ambulatory subject supports the diagnosis of Diabetes Mellitus. LAB COMM1 Commemt1 Glu2: Cleaned Meter Result Comment: PERFORMED BY : [address] [address] PATHOLOGIST TRUCK STRIKER LE MACE M.D. Performed By: #### GLULS ### # Point of Care testing , GLUCOSE POCT GLUCOMETERS Collected: 04/29/2024 6:24 A M Status: F Source: [facility] TYPE CODE TESTS RESULT OUT OF RANGE REFERENCE UNITS LAB GLUPOC Glucose Poc Glucometers 210 mg/dL Result Comment: Random Gluco se Reference Range is dependent on time and content of last meal. Glucose of more than 200 mg/dL in a nonstressed, ambulatory subject supports the diagnosis of Diabetes Mellitus. PERFORMED BY: [address] [address] PATHOLOGIST TRUCK STRIKER LE MACE M.D. Performed By: #### GLULS ### # Point of Care testing , BASIC METABOLIC PANEL Collected: 04/29/2024 6:10 AM Status: F Source: [facility] Order Comment: FASTING N TYPE CODE TESTS RESULT OUT OF RANGE REFERENCE UNITS LAB GLU Glucose 206 High 70-100 mg/dL Result Comment: Random Gluco se Reference Range is dependent on time and content of last meal. Glucose of more than 200 mg/dL in a nonstressed, ambulatory subject supports the diagnosis of Diabetes Mellitus. ADA recommended reference range LAB BUN Blood Urea Nitrogen 9 Normal 7-25 mg/dL LAB CREATT Creatinine 0.85 Normal 0.60-1.20 mg/dL LAB GFReNR Estimated GFR >60.0 mL/Min LAB NA Sodium 139 Normal 136-145 mmol/L LAB K Potassium 3.5 Normal 3.5-5.1 mmol/L LAB CL Chloride 106 Normal 98-107 mmol/L LAB CO2 Carbon Dioxide 25.2 Normal 21.0-31.0 mmol/L LAB GAP Anion Gap 11.3 Normal 6.0-15.0 meq/L LAB CA Calcium 8.9 Normal 8.6-10.3 mg/dL LAB CRCLPHA Creatinine Clr Calc Pharmacy 77.21 Performed By: #### LIPID, BM P #### [facility] [address] [place] [address] LIPID PANEL Collected: 04/29/2024 6:10 AM Status: F Source: [facility] Order Comment: FASTING N TYPE CODE TESTS RESULT OUT OF RANGE REFERENCE UNITS LAB CHOL Cholesterol 106 Low 140-200 mg/dL Result Comment: Chol less th an 200 mg/dl low risk Chol 201-239 mg/dl borderline risk Chol 240 mg/dl and greater high risk LAB HDL HDL Cholesterol 31 Normal 23-92 mg/dL Result Comment: HDL CHOL ATP -III CLASSIFICATION Cardiovascular Risk HDL > or equal to 60 mg/dL LOW HDL < 40 mg/dL HIGH LAB TRIG W REF Triglyceride w/Reflex 151 High 0-149 mg/dL Result Comment: TRIG ATP III CLASSIFICATION TRIG less than 150 mg/dL Normal TRIG 150-199 mg/dL Borderline high TRIG 200-500 mg/dL High TRIG greater than 500 mg/dL Very high Standard traceable to the Center for Disease Conrtrol and Prevention (CDC) test method. LAB LDLC LDL Cholesterol,Calc ulated 45 Normal 0-100 mg/dL Result Comment: LDL ATP III CLASSIFICATION LDL less than 100 mg/dL Optimal LDL 100-129 mg/dL Near or above optimal LDL 130-159 mg/dL Borderline high LDL 160-189 mg/dL High LDL greater than 189 mg/dL Very high LAB VLDL VLDL CHOLESTEROL 30 mg/dL LAB CHLHDL Chol/HDL Ratio 3.4 <5.0 Result Comment: PERFORMED BY : [address] [address] PATHOLOGIST TRUCK STRIKER LE MACE M.D. Performed By: #### LIPID, BM P #### [address] [address] [place] DIPSTICK AND MICROSCOPIC Collected: 10:02 PM Status: F Source: [facility] Order Comment: Name Collecti on Type:: Clean-Voided Midstream TYPE CODE TESTS RESULT OUT OF RANGE REFERENCE UNITS LAB UCOL Color,Urine Light-Yellow Yellow LAB UAPP Appearance,Uri ne Clear Clear LAB USG Specificy [place],Urine 1.038 High 1.001-1.030 LAB UPH pH,Urine 5.5 Normal 5.0-9.0 LAB ULE Leukocyte Esterase,Urine Negative Negative LAB UNIT Nitrite,Urine Negative Negative LAB UPRO Protein,Urine Negative Negative LAB UGL Glucose,Urine (UA) >= High Normal mg/dL LAB UKET Ketones,Urine Negative Negative LAB UURO Urobilinogen,U rine Normal Normal LAB UBIL Bilirubin,Urin e Negative Negative LAB UBLD Occult Blood,Urine 2+ High Negative Result Comment: PERFORMED BY : [address] [place] [address] PATHOLOGIST TRUCK STRIKER LE MACE M.D. LAB URBC RBC,Urine 10 High 0-4 [HPF] LAB UWBC WBC,Urine 5 High 0-4 [HPF] LAB USQEPI Squamous Epithelial Cell,Urine 3 High 0-2 [HPF] LAB UBACT Bacteria,Urine Rare None Seen LAB UHYALC Hyaline Casts,Urine 0 0-8 [LPF] LAB URBY Budding Yeast,Urine Rare High None Seen Result Comment: PERFORMED BY : [address] [place] [address] PATHOLOGIST TRUCK STRIKER LE MACE M.D. Performed By: #### ADDONUAPL #### [address] XR CHEST 2V* Observed: 04/28/2024 9:44 PM Status: COMPLETED Source: [facility] [place] [address] XRay Report Signed Patient: Kerry Marcos MR#: [id number] [birth year] : 1955 Acct:[id number] Age/Sex: 68 / F ADM Date: 04/28/24 Loc: ER Room: Type: [facility] ER Attending Dr: Copies to: [...] Oz Bowling M.D.04/28/2024 9:46 PM Dictation Location: [place] [address] Transcribed By: [facility] 04/28/242145 Dictated By: Oz Bowling II, MD 04/28/242143 Signed By: <Electronically signed by Oz Bowling II, MD in OV> 04/28/242145 CT ANGIO HEAD Observed: 04/28/2024 9:30 PM Status: COMPLETED Source: [facility] [place] [address] CT Scan Report Signed Patient: Kerry Marcos MR#: [id number] [birth year] : 1955 Acct:[id number] Age/Sex: 68 / F ADM Date: 04/28/24 Loc: ER Room: Type: [facility] ER Attending Dr: Copies to: Wesley Villafuerte PA-C Ordering Provider: Wesley Villafuerte PA-C Date of Service: 04/28/24 CT/CT angio head: weakness ([id number]) CT/CT angio neck: weakness ([id number]) CT/CT head/brain wo con: weakness CT head/brain [...] Oz Bowling M.D.04/28/2024 9:44 PM Dictation Location: [place] [address] Transcribed By: [facility] 04/28/242143 Dictated By: Oz Bowling II, MD 04/28/242129 Signed By: <Electronically signed by Oz Bowling II, MD in OV> 04/28/242143 RESPIRATORY (UPPER) PANEL, PCR Observed: 04/28/2024 8:19 PM Status: F Source: [facility] Adenovirus Not detected Bordetella parapertussis Not detected [...] COVID-19 Detected/Not Detected Not detected Blank Space FLUA TEST INCLUDES Influenza A tests for the following clinically FLUA TEST INCLUDES significant subtypes: FLUA TEST INCLUDES - Influenza A FLUA TEST INCLUDES - Influenza A H1 FLUA TEST INCLUDES - Influenza A H1 2009 FLUA TEST INCLUDES - Influenza A H3 Blank Space PERFORMED BY: [place] [address] PATHOLOGIST TRUCK STRIKER LE MACE M.D. Performed By: #### RESP PANE L UPP., BIOFIRECOVNOTDE #### [address] BIOFIRE NOT DETECTED Collected: 04/28/2024 8:19 PM S tatus: F Source: [facility] TYPE CODE TESTS RESULT OUT OF RANGE REFERENCE UNITS LAB BIOFIRECOVNOTDE BioFire Not Detected Not Detected Not Detecte Result Comment: This is a du plicate RP2.1 COVID (PCR) result to be used for statistical tracking purpose only. PERFORMED BY: [place] [address] PATHOLOGIST TRUCK STRIKER LE MACE M.D. Performed By: #### RESP PANE L UPP., BIOFIRECOVNOTDE #### [address] B-TYPE NATRIURETIC PEPTIDE Collected: 04/28/2024 7:54 PM Status: F Source: [facility] TYPE CODE TESTS RESULT OUT OF RANGE REFERENCE UNITS LAB BNP B-Type Natriuretic Peptide 25.0 Normal 5-100 pg/mL Result Comment: PERFORMED BY : [place] [address] PATHOLOGIST TRUCK STRIKER LE MACE M.D. Performed By: #### SCAN CBC, PTT, BNP, PT, MG, CMP, HS TROP #### [address] COMPREHENSIVE METABOLIC PANEL Collected: 04/28/2024 7 :54 PM Status: F Source: [facility] TYPE CODE TESTS RESULT OUT OF RANGE REFERENCE UNITS LAB GLU Glucose 231 High 70-100 mg/dL Result Comment: Random Gluco se Reference Range is dependent on time and content of last meal. Glucose of more than 200 mg/dL in a nonstressed, ambulatory subject supports the diagnosis of Diabetes Mellitus. ADA recommended reference range LAB BUN Blood Urea Nitrogen 11 Normal 7-25 mg/d L LAB CREATT Creatinine 0.85 Normal 0.60-1.20 mg/dL LAB GFReNR Estimated GFR >60.0 mL/Min LAB NA Sodium 137 Normal 136-145 mmol/L LAB K Potassium 3.9 Normal 3.5-5.1 mmol/L Result Comment: Hemolysis is present at a level that could interfere with the result. Contact lab if redraw is required LAB CL Chloride 104 Normal 98-107 mmol/L LAB CO2 Carbon Dioxide 24.2 Normal 21.0-31.0 mmol/L LAB GAP Anion Gap 12.7 Normal 6.0-15.0 meq/L LAB CA Calcium 9.7 Normal 8.6-10.3 mg/dL LAB TP Total Protein 6.8 Normal 6.4-8.9 g/dL LAB ALB Albumin Level 3.7 Normal 3.5-5.7 g/dL LAB GLOB Globulin 3.1 g/dL LAB AGRATIO Albumin/Globulin Ratio 1.2 LAB BILIT Bilirubin,Total 0.3 Normal 0.3-1.0 mg/dL LAB AST Aspartate Amino Transferase 25 Normal 13-39 U/L LAB ALT Alanine Aminotransferase 20 Normal 7-52 U/L LAB ALP Alkaline Phosphatase 86 Normal 34-104 U/L LAB CRCLPHA Creatinine Clr C alc Pharmacy 77.21 Performed By: #### SCAN CBC, PTT, BNP, PT, MG, CMP, HS TROP #### [facility] [address] [place] [id number] [facility] MAGNESIUM Collected: 4 7:54 PM Status: F Source: [facility] TYPE CODE TESTS RESULT OUT OF RANGE REFERENCE UNITS LAB MG Magnesium 1.7 Low 1.9-2.7 mg/dL Result Comment: PERFORMED BY : [place] [id number] PATHOLOGIST TRUCK STRIKER LE MACE M.D. Performed By: #### SCAN CBC, PTT, BNP, PT, MG, CMP, HS TROP #### [facility] [address] [place] [address] [facility] TROPONIN I HIGH SENSITIVITY Collected: 04/28/2024 7:5 4 PM Status: F Source: [facility] TYPE CODE TESTS RESULT OUT OF RANGE REFERENCE UNITS LAB HS TROP Troponin I High Sensitivity 5.1 Normal 0.0-15.0 pg/mL Result Comment: PERFORMED BY : [place] [id number] PATHOLOGIST TRUCK STRIKER LE MACE M.D. Performed By: #### SCAN CBC, PTT, BNP, PT, MG, CMP, HS TROP #### [facility] [address] [place] [id number] [facility] PROTHROMBIN TIME INR Collected: 04/28/2024 7:54 PM S tatus: F Source: [facility] TYPE CODE TESTS RESULT OUT OF RANGE REFERENCE UNITS LAB R PT Prothrombin Time 15.1 High 9.0-12.9 s Result Comment: A hematocrit value greater than 55% may lead to inaccurate results in coagulation testing. Patients having hematocrit values >55% require a special collection tube for coagulation studies. Please contact the laboratory at [phone] for redraw instructions. LAB INR INR 1.3 Result Comment: INR Therapeu tic Range A) Pre- and Peroperative OAT started [...] valves: 3 - 4.5 Performed By: #### SCAN CBC, PTT, BNP, PT, MG, CMP, HS TROP #### [facility] [address] [place] [address] [facility] PARTIAL THROMBOPLASTIN TIME Collected: 04/28/2024 7:5 4 PM Status: F Source: [facility] TYPE CODE TESTS RESULT OUT OF RANGE REFERENCE UNITS LAB PTT Partial Thromboplastin Time 30.0 Normal 25.1-36.5 s Result Comment: A hematocrit value greater than 55% may lead to inaccurate results in coagulation testing. Patients having hematocrit values >55% require a special collection tube for coagulation studies. Please contact the laboratory at [phone] for redraw instructions. PERFORMED BY: [address] [place] [address] PATHOLOGIST TRUCK STRIKER LE MACE M.D. Performed By: #### SCAN CBC, PTT, BNP, PT, MG, CMP, HS TROP #### [facility] [address] [place] [address] [facility] SCAN AND CBC Collected: 04/28/2024 7:54 PM Status: F Source: [facility] TYPE CODE TESTS RESULT OUT OF RANGE REFERENCE UNITS LAB WBC White Blood Count 10.2 Normal 3.8-11.6 10*3/ uL LAB UNWBC Uncorrected WBC 10.9 Normal 3.8-11.6 10*3/uL LAB RBC Red Blood Count 5.06 High 3.60-5.00 10*6/u L LAB HGB Hemoglobin 16.0 High 11.8-15.4 g/dL LAB HCT Hematocrit 48.1 High 34.0-46.4 % LAB MCV Mean Corpuscular Volume 95.1 Normal 80-100 fL LAB MCH Mean Corpuscular Hemoglobin 31.7 Normal 24.7-34.3 pg LAB MCHC Mean Corpuscular HGB Conc 33.3 Normal 32.0-35.0 g/dL LAB RDW Red Cell Distribution Width 15.4 High 11.9-15.3 % LAB PLT Platelet Count 136 Low 150-450 10*3/uL LAB MPV Mean Platelet Volume 9.9 Normal 6.3-10.7 fL LAB MDW Monocyte Distribution Width 20.25 High 0.00-20.00 % Result Comment: For adults i n ED, MDW > 20.0 may be associated with a higher risk of sepsis during the first 12 hrs of hospital admission LAB NE% Neutrophils % (Auto) 64.0 . % LAB LY% Lymphocytes % (Auto) 24.6 . % LAB MO% Monocytes % (Auto) 7.6 . % LAB EO% Eosinophils % (Auto) 2.7 . % LAB BA% Basophils % (Auto) 1.1 . % LAB NRBC% NRBC% 0.2 Normal 0-0.5 /100{WBC } LAB NE# Neutrophils # (Auto) 6.5 Normal 1.8-7.7 10*3/uL LAB LY# Lymphocytes # (Auto) 2.5 Normal 1.00-4.8 10*3/uL LAB MO# Monocytes # (Auto) 0.8 Normal 0.0-0.8 10*3/uL LAB EO# Eosinophils # (Auto) 0.3 Normal 0.0-0.45 10*3/uL LAB BA# Basophils # (Auto) 0.1 Normal 0.0-0.2 10*3/uL LAB POLY Polychromasia Slight LAB ANISO Anisocytosis Slight LAB PLT EST Platelet Estimate Decreased Normal LAB PLTM Platelet Morphology Normal Normal Result Comment: PERFORMED BY : [place] [address] PATHOLOGIST TRUCK STRIKER LE MACE M.D. Performed By: #### SCAN CBC, PTT, BNP, PT, MG, CMP, HS TROP #### [facility] [address] [place] [address] ECG 12 LEAD ECG Observed: 04/28/2024 7:33 PM Status: COMPLETED Source: [facility] C [facility] [place] [address] Electrocardiograph Report Signed Patient: Kerry Marcos MR#: [id number] [birth year] : 1955 Acct:[id number] Age/Sex: 68 / F ADM Date: 04/28/24 Loc: Room: [address] [place] [address] Type: ADM IN Attending Dr: Jori Hearn [...] significant change was found Confirmed by JORI CRAWFORD MD ([id number]) on 04/29/2024 1:44:38 AM Referred By: Electronically Signed By: JORI CRAWFORD MD Transcribed By: MUS Signed By Jori Crawford MD 05/23 0144 ECG 12 LEAD ECG Observed: 04/27/2024 2:27 PM Status: COMPLETED Source: [facility] [place] [address] Electrocardiograph Report Signed Patient: Kerry Marcos MR#: [id number] [birth year] : 1955 Acct:[id number] Age/Sex: 68 / F ADM Date: 04/27/24 Loc: ER Room: Type: [facility] ER Attending Dr: Ordering Provider: Rl Daily DO Date of Service: 04/27/24 ECG/ECG 12 [...] significant change was found Confirmed by RL DAILY DO ([id number]) on 04/28/2024 2:19:46 AM Referred By: Electronically Signed By: RL DAILY DO Transcribed By: MUS Signed By Rl Daily DO [id number] COMPLETE BLOOD COUNT AUTO DIFF Collected: 04/14/2024 10:48 AM Status: F Source: [facility] TYPE CODE TESTS RESULT OUT OF RANGE REFERENCE UNITS LAB WBC White Blood Count 10.7 Normal 3.8-11.6 10*3/uL LAB UNWBC Uncorrected WBC 10.7 Normal 3.8-11.6 10*3/uL LAB RBC Red Blood Count 5.32 High 3.60-5.00 10*6/u L LAB HGB Hemoglobin 16.6 High 11.8-15.4 g/dL LAB HCT Hematocrit 49.7 High 34.0-46.4 % LAB MCV Mean Corpuscular Volume 93.4 Normal 80-100 fL LAB MCH Mean Corpuscular Hemoglobin 31.2 Normal 24.7-34.3 pg LAB MCHC Mean Corpuscular HGB Conc 33.4 Normal 32.0-35.0 g/dL LAB RDW Red Cell Distribution Width 15.0 Normal 11.9-15.3 % LAB PLT Platelet Count 167 Normal 150-450 10*3/uL LAB MPV Mean Platelet Volume 8.9 Normal 6.3-10.7 fL LAB NE% Neutrophils % (Auto) 68.8 . % LAB LY% Lymphocytes % (Auto) 19.3 . % LAB MO% Monocytes % (Auto) 8.7 . % LAB EO% Eosinophils % (Auto) 2.6 . % LAB BA% Basophils % (Auto) 0.6 . % LAB NRBC% NRBC% 0.1 Normal 0-0.5 /100{WBC} LAB NE# Neutrophils # (Auto) 7.3 Normal 1.8-7.7 10*3/uL LAB LY# Lymphocytes # (Auto) 2.1 Normal 1.00-4.8 10*3/uL LAB MO# Monocytes # (Auto) 0.9 High 0.0-0.8 10*3/uL LAB EO# Eosinophils # (Auto) 0.3 Normal 0.0-0.45 10*3/uL LAB BA# Basophils # (Auto) 0.1 Normal 0.0-0.2 10*3/uL Result Comment: PERFORMED BY : [facility] [address] [place] [address] PATHOLOGIST TRUCK STRIKER LE MACE M.D. Performed By: #### CMP, LDH, PATH SLIDE REV, CBC #### [facility] [address] COMPREHENSIVE METABOLIC PANEL Collected: 04/14/2024 1 0:48 AM Status: F Source: [facility] TYPE CODE TESTS RESULT OUT OF RANGE REFERENCE UNITS LAB GLU Glucose 169 High 70-100 mg/dL Result Comment: Random Gluco se Reference Range is dependent on time and content of last meal. Glucose of more than 200 mg/dL in a nonstressed, ambulatory subject supports the diagnosis of Diabetes Mellitus. ADA recommended reference range LAB BUN Blood Urea Nitrogen 8 Normal 7-25 mg/d L LAB CREATT Creatinine 0.83 Normal 0.60-1.20 mg/dL LAB GFReNR Estimated GFR >60.0 mL/Min LAB NA Sodium 140 Normal 136-145 mmol/L LAB K Potassium 4.0 Normal 3.5-5.1 mmol/L LAB CL Chloride 101 Normal 98-107 mmol/L LAB CO2 Carbon Dioxide 26.9 Normal 21.0-31.0 mmol/L LAB GAP Anion Gap 16.1 High 6.0-15.0 meq/L LAB CA Calcium 10.0 Normal 8.6-10.3 mg/dL LAB TP Total Protein 7.4 Normal 6.4-8.9 g/dL LAB ALB Albumin Level 4.1 Normal 3.5-5.7 g/dL LAB GLOB Globulin 3.3 g/dL LAB AGRATIO Albumin/Globulin Ratio 1.2 LAB BILIT Bilirubin,Total 0.6 Normal 0.3-1.0 mg/dL LAB AST Aspartate Amino Transferase 26 Normal 13-39 U/L LAB ALT Alanine Aminotransferase 20 Normal 7-52 U/L LAB ALP Alkaline Phosphatase 92 Normal 34-104 U/L LAB CRCLPHA Creatinine Clr C alc Pharmacy 78.05 Performed By: #### CMP, LDH, PATH SLIDE REV, CBC #### [place] [id number] [facility] LDH LACTATE DEHYDROGENASE Collected: 04/14/2024 10:48 AM Status: F Source: [facility] TYPE CODE TESTS RESULT OUT OF RANGE REFERENCE UNITS LAB LDH LDH Lactate Dehydrogenase 155 Normal 140-271 U/L Result Comment: PERFORMED BY : [place] [id number] PATHOLOGIST TRUCK STRIKER LE MACE M.D. Performed By: #### CMP, LDH, PATH SLIDE REV, CBC #### [address] [address] [facility] PATHOLOGIST SLIDE REVIEW Collected: 04/14/2024 10:48 AM Status: F Source: [facility] TYPE CODE TESTS RESULT OUT OF RANGE REFERENCE UNITS LAB PATH SLIDE REV Pathologist Slide Review Ordered Path Review Result Comment: PERFORMED BY : [address] [address] PATHOLOGIST TRUCK STRIKER LE MACE M.D. Performed By: #### CMP, LDH, PATH SLIDE REV, CBC #### [address] [address] [place] L Observed: 04/14/2024 12:00 AM Status: F Source: [facility] ----- ------- Specimen: [id number] Received: 04/14/24 Status: [place] Num: [id number] Spec Type: Impression Subm Dr: Nataliya Jane APRN Tissues: PATHPER Procedures: PATHREVIEW ----- ------- Age/ Patient Sex Location Account Attending Physician ----- ------- Kerry Marcos 68/F XT [id number] Nataliya Jane APRN ----- ------- SPEC NUM: [id number] RECD: 04/14/24 STATUS: [place] NUM: [id number] RONNY: 04/14/24- SUBM DR: Nataliya Jane APRN ENTERED: 04/14/[address] [facility] [address]: SPEC TYPE: Impression DEPT: ID ENTERED BY: [id number] RECV BY: [id number] ORDERED: PATHREVIEW ORDERED: PATHREVIEW Pathologist Review Abnormal [...] chronic smoking. Clinical correlations are suggested CPT: 20048 ----- ------- Specimen: [id number] Received: 04/14/24 Status: FIDEL [place] Num: [id number] Spec Type: Impression Subm Dr: Nataliya Jane APRN Tissues: PATHPER Procedures: PATHREVIEW ----- ------- Patient: Kerry Marcos [id number] (Continued) ----- ------- Specimen: [id number] Received: 04/14/24 (Continued) Signed (signature on file) Nereyda Holt MD 04/15/24 0920 ----- ------- Specimen: [id number] Received: 04/14/24 Status: [place] Num: [id number] Spec Type: Impression Subm Dr: Nataliya Jane APRN Tissues: PATHPER Procedures: PATHREVIEW ----- ------- Patient: Kerry Marcos [id number] (Continued) ----- ------- Specimen: [id number] Received: 04/14/24 (Continued) CBC Date [...] % Lymp % (Auto) 19.3 . % [place] % (Auto) 8.7 . % Eos % (Auto) 2.6 . % Baso % (Auto) 0.6 . % NRBC% 0.1 0-0.5 /100 WBC Neut # (Auto) 7.3 1.8-7.7 x10E3/uL Lymph # (Auto) 2.1 1.00-4.8 x10E3/uL [place] # (Auto) 0.9 H 0.0-0.8 x10E3/uL Eos # (Auto) 0.3 0.0-0.45 x10E3/uL Baso# (Auto) 0.1 0.0-0.2 x10E3/uL ----- ------- ----- ------- Specimen: [id number] Received: 04/14/24-1146 Status: [place] Num: [id number] Spec Type: Impression Subm Dr: Nataliya Jane APRN Tissues: PATHPER Procedures: PATHREVIEW ----- ------- Patient: Kerry Marcos Vamsi [id number] (Continued) ----- ------- Signed (signature on file) Nereyda Holt MD 04/15/24 0920 ALLERGIES DATE TYPE / CODE NAME / CODE REACTION SEVERITY SOURCE 01/12/2025 Drug Allergy/734886 002(SNOMED CT) Sulfa (Sulfonamide Antibiotics)/F [id number](RXNO RM) Vomiting Unknown [facility] 01/12/2025 Drug Allergy/249490 002(SNOMED CT) pioglitazone/F 999951608(RXNO RM) leg edema Mild (Qualifier Value) [facility] 2018 Drug Class/04634108 3(SNOMED CT) SULFA (SULFONAMIDE ANTIBIOTICS) [facility] ENCOUNTERS ADMIT/DISCHARGE ACCOUNT NUMBER ADMITTING ENCOUNTER CLASS LOCATION SOURCE 01/19/2025/01/20/20 [id number] Ambulatory Building:NOM S NEURO [facility] EPIC 12/31/2024/01/01/20 [id number] Ambulatory Building:FNR MR [facility] EPIC 12/30/2024/12/31/19 [id number] Ambulatory Building:DOT [id number] [facility] 12/24/2024/12/25/19 [id number] [facility] 12/18/2024/12/19/19 25 [id number] Ambulatory Building:NOM S NEURO [facility] EPIC 12/11/2024/12/12/19 [id number] Ambulatory Building:NOM S NEURO [facility] EPIC 11/23/2024/11/24/19 25 [id number] Ambulatory Building:NOM S SWS POD [facility] EPIC 11/16/2024/11/17/19 25 [id number] [facility] 11/16/2024/11/17/19 25 [id number] Ambulatory Building:NOM S SWS POD [facility] EPIC 11/09/2024/11/10/19 [id number] [facility] 10/20/2024/10/21/19 [id number] Ambulatory Building:NOM S SWS POD [facility] EPIC 10/06/2024/10/07/19 25 [id number] Ambulatory Building:NOM S NEURO [facility] EPIC 10/05/2024/10/06/19 25 [id number] Ambulatory PM [place]PM [facility] 09/10/2024/09/11/19 [id number] Asaad, Imad [facility] 07/22/2024/07/23/19 25 [id number] Tray Nava [facility] 07/21/2024/07/22/19 25 [id number] Ambulatory Building:NOM S NEURO [facility] EPIC 07/06/2024/07/07/19 25 [id number] Deneen Frost [facility] 06/26/2024 [id number] Nataliya Jane [facility]:LOR[facility] 06/26/2024/06/26/19 25 [id number] GovindRaymundolurdes Ambulatory [facility] ng:[facility] 06/26/2024/06/26/19 25 [id number] Ambulatory Building:DOT [id number] [facility] 05/25/2024/05/25/19 25 [id number] Sandra Lewis [facility] ng:MR [facility] 04/28/2024/04/30/19 25 [id number] Jori Hearn Inpatient Encounter [facility] nTRoom: [id number]: 2 [facility] 04/27/2024/04/27/20 24 [id number] Rl Daily Emergency [facility] ng:EDWRRoom: EDWYIT [facility] 04/08/2024/04/08/20 24 [id number] Ambulatory Building:NOM S SWS POD [facility] EPIC 04/07/2024/04/07/20 24 [id number] Ambulatory Building:NOM S NEURO [facility] EPIC 03/25/2024/03/25/20 24 [id number] Ambulatory Building:DOT [id number] [facility] 02/25/2024/02/25/20 24 [id number] Ambulatory Building:NOM S NEURO [facility] EPIC 02/14/2024/02/14/20 24 [id number] Asaad, Imad Ambulatory [facility] ng:[facility] 02/10/2024/02/10/20 24 [id number] Ambulatory Building:NOM S SWS POD [facility] EPIC PAYERS ENCOUNTER GUARANTOR PAYER SUBSCRIBER SOURCE 01/19/2025 KERRY CHEEKNDOB: [place], [place] [address]Geh: () Primary Insurance:[facility] MEDICAREPolicy Number: [id number] Date:2022-04-29 KERRY HOLLYATONDOB: [id number] [place] [address] [facility] EPIC 01/19/2025 Secondary Insurance[place]: [id number] Date:2021-07-28 KERRY HOLLYATONDOB: [id number] [place] [address] [facility] EPIC 12/31/2024 KERRY HOLLYATONDOB: [place], [place] [address]Sfh: (HP) Primary Insurance:[facility] MEDICAREPolicy Number: [id number] Date:2022-04-29 KERRY HOLLYATONDOB: [id number] [place] [address] [facility] EPIC 12/31/2024 Secondary Insurance:[place]: [id number] Date:2021-07-28 KERRY HOLLYATONDOB: [id number] [place] [address] [facility] EPIC 12/30/2024 KERRY HOLLYATONDOB: [place], [place] [address]Ukk: (HP) Primary Insurance:MEDICAIDPoli cy Number: [id number] Date:2024-06-27 KERRY HOLLYATONDOB: [id number] [place], [place] [address]Ibt: () [facility] 12/30/2024 Secondary Insurance:[facility] DUAL COMPLETEPolicy Number: [id number] Date:2023-04-29 KERRY HOLLYATONDOB: [id number] [place], [place] [address]Sks: (HP) [facility] 12/24/2024 Krery Hollyaton[address] [place] [address]Swl: (HP) Primary Insurance:[facility] Dual ComplPolicy Number: [id number] Date:7429-23-77KN[address] [address]YU: Kerry HollyatonDOB: [id number] [place] [address]Dyh: (HP) [facility] 12/24/2024 Secondary Insurance:MedicaidPoli cy Number: [id number] Date:2024-10-01 Kerry HollyatonDOB: [id number] [place] [address]Ibl: (HP) [facility] 12/24/2024 Tertiary Insurance:Self PayPolicy Number: Effective Date:2024-10-01 NOT GIVENTriHealth 12/18/2024 KERRY HOLLYATONDOB: [place], [place] [address]Wxe: (HP) Primary Insurance:[facility] MEDICAREPolicy Number: [id number] Date:2022-04-29 KERRY HOLLYATONDOB: [id number] [place] [address] [facility] EPIC 12/18/2024 Secondary Insurance:[place]ICAID [place]Policy Number: [id number] Date:2021-07-28 KERRY HOLLYATONDOB: [id number] [place] [address] [facility] EPIC 12/11/2024 KERRY HOLLYATONDOB: [place], [place] [address]Ywv: () Primary Insurance:[facility] MEDICAREPolicy Number: [id number] Date:2022-04-29 KERRY HOLLYATONDOB: [id number] [place] [address] [facility] EPIC 12/11/2024 Secondary Insurance:[place] Number: [id number] Date:2021-07-28 KERRY HOLLYATONDOB: [id number] [place] [address] [facility] EPIC 11/23/2024 KRERY Vamsi SANDYATONDOB: [place], [place] [address]Vti: (HP) Primary Insurance:[facility] MEDICAREPolicy Number: [id number] Date:2022-04-29 KERRY HOLLYATONDOB: [id number] [place] [address] [facility] EPIC 11/23/2024 Secondary Insurance:[place] Number: [id number] Date:2021-07-28 KERRY HOLLYATONDOB: [id number] [place] [address] [facility] EPIC 11/16/2024 Kerry Hollyaton[address] [place] [address]Uaz: (HP) Primary Insurance:[facility] Dual ComplPolicy Number: [id number] Date:3185-75-70WV[address] [address]MP: Kerry HollyatonDOB: [id number] [place] [address]Aua: () [facility] 11/16/2024 Secondary Insurance:MedicaidPoli cy Number: [id number] Date:2024-11-16 Kerry HollyatonDOB: [id number] [place] [address]Oxx: () [facility] 11/16/2024 Tertiary Insurance:Self PayPolicy Number: Effective Date:2024-11-16 NOT GIVENTriHealth 11/16/2024 KERRY HOLLYATONDOB: [place], [place] [address]Mlz: (HP) Primary Insurance:[facility] MEDICAREPolicy Number: [id number] Date:2022-04-29 KERRY HOLLYATONDOB: [id number] [place] [address] [facility] EP[facility] 11/16/2024 Secondary Insurance:[place] Number: [id number] Date:2021-07-28 KERRY HOLLYATONDOB: [id number] [place] [address] [facility] 11/09/2024 Kerry HollyatonDOB: [place] [address] Primary Insurance:[employer] Medicare SolutionsPolicy Number: Effective Date:9445-35-59Maex Name:[address] [address] [address]IV: Kerry HollyatonDOB: [id number] [place] [address] [facility] 11/09/2024 Secondary Insurance:MedicaidPoli cy Number: Effective Date:5960-04-04Cbjy Name:MEDCP [address] [address]ZO: Kerry HollyatonDOB: 3573-35-09ESL198 [place] [address] [facility] 10/20/2024 KERRY HOLLYATONDOB: [place], [place] [address]Zee: (HP) Primary Insurance:[employer] MEDICAREPolicy Number: [id number] Date:2022-04-29 KERRY HOLLYATONDOB: [id number] [place] [address] [facility] 10/20/2024 Secondary Insurance:[place]ID [place]Policy Number: [id number] Date:2021-07-28 KERRY HOLLYATONDOB: 7665-28-14PSL397 [place] [address] [facility] 10/06/2024 KERRY HOLLYATONDOB: [place], [place] [address]Fhf: (HP) Primary Insurance:[employer] MEDICAREPolicy Number: [id number] Date:2022-04-29 KERRY HOLLYATONDOB: [id number] [place] [address] [facility] 10/06/2024 Secondary Insurance:[place]ID [place]Policy Number: [id number] Date:2021-07-28 KERRY HOLLYATONDOB: [id number] [place] [address] [facility] 10/05/2024 Kerry HollyatonDOB: [place] [address] Primary Insurance:[facility] Medicare SolutionsPolicy Number: Effective Date:9039-60-73Zsni Name:MEDP [address] [address] [address]CA: Kerry HollyatonDOB: 8172-27-02KHP736 [place] [address] [facility] 10/05/2024 Secondary Insurance:MedicaidPoli cy Number: Effective Date:1339-64-21Kxmz Name:MEDCP [address], [place] [address]GP: Kerry HollyatonDOB: 7371-49-16SNF337 [place] [facility] [address] [facility] 09/10/2024 Kerry Hollyaton[address] [place] [address]Lbh: () Primary Insurance:[facility] Dual ComplPolicy Number: [id number] Date:8241-62-73TS[address] [address]HM: Kerry HollyatonDOB: 8687-06-71MBK909 [place] [address]Imq: () [facility] 09/10/2024 Secondary Insurance:MedicaidPoli cy Number: [id number] Date:2024-08-26 Kerry HollyatonDOB: 9757-92-89FAU480 [place] [address]Qhz: (HP) [facility] 09/10/2024 Tertiary Insurance:Self PayPolicy Number: Effective Date:2024-09-08 NOT GIVENTriHealth 07/22/2024 Kerry [address] [facility] [place] [address]Ibf: (HP) Primary Insurance:[facility] PFFSPolicy Number: [id number] Date:3231-98-71VW[address] [address]KN: Kerry HollyatonDOB: 6306-66-92DNI189 [place] [address]Fso: () [facility] 07/22/2024 Secondary Insurance:MedicaidPoli cy Number: [id number] Date:2023-07-18 Kerry HollyatonDOB: 7785-18-61UBX295 [place] [address]Coo: (HP) [facility] 07/22/2024 Tertiary Insurance:MedicarePoli cy Number: [id number] Date:2023-07-18 Kerry HollyatonDOB: 6670-13-53TUY160 [place] [address]Uxf: () [facility] 07/22/2024 Tertiary Insurance:Self PayPolicy Number: Effective Date:2024-07-22 NOT GIVENTriHealth 07/21/2024 KERRY HOLLYATONDOB: [place], [place] [address]Yoj: () Primary Insurance:[facility] MEDICAREPolicy Number: [id number] Date:2022-04-29 KERRY HOLLYATONDOB: 5203-59-72QDU357 [place] [address] [facility] 07/21/2024 Secondary Insurance:MEDICAID [place]Policy Number: [id number] Date:2021-07-28 KERRY CHEEKNDOB: 9772-29-16FTJ717 [place] [address] [facility] 07/06/2024 [place] [address]Dfa: (HP) Primary Insurance:Self PayPolicy Number: Effective Date:2024-07-06 NOT GIVENTriHealth 06/26/2024 Kerry Cheekn[address] [place] [address]Vql: (HP) Primary Insurance:[facility] Dual ComplPolicy Number: [id number] Date:5072-28-08GK [address] [address]WM: Kerry CheeknDOB: 4706-71-51DQD990 [place], [facility]Lkc: () [facility] 06/26/2024 Secondary Insurance:MedicaidPoli cy Number: [id number] Date:2024-04-10 Kerry HollyatonDOB: [id number] [place], [facility]Gkj: () [facility] 06/26/2024 Tertiary Insurance:Self PayPolicy Number: Effective Date:2024-04-10 NOT GIVENTriHealth 06/26/2024 Kerry Cheekn[address] [place], [facility]Zbw: (HP) Primary Insurance:[facility] Dual ComplPolicy Number: [id number] Date:6784-96-05IQ [address] [address]RG: Kerry HollyatonDOB: 8510-84-47INM290 [place] [address]Tzi: () [facility] 06/26/2024 Secondary Insurance:MedicaidPoli cy Number: [id number] Date:2024-05-07 Kerry HollyatonDOB: [id number] [place] [address]Bae: () [facility] 06/26/2024 Tertiary Insurance:Self PayPolicy Number: Effective Date:2024-05-07 NOT GIVENTriHealth 06/26/2024 KERRY HOLLYATONDOB: [place], [place] [address]Jtq: (HP) Primary Insurance:[employer] DUAL COMPLETEPolicy Number: [id number] Date:2023-04-29 KERRY CHEEKNDOB: 6650-50-20FDH804 [place], [place] [address]Gwi: () [facility] 05/25/2024 Kerry Hollyaton[address] [place] [address]Tsk: () Primary Insurance:[employer] Dual ComplPolicy Number: [id number] Date:0675-65-96KY[address] [address]YE: Kerry HollyatonDOB: [id number] [place] [address]Sre: () [facility] 05/25/2024 Secondary Insurance:MedicaidPoli cy Number: [id number] Date:2024-05-08 Kerry HollyatonDOB: 7462-43-96JIA451 [place] [address]Pjs: () [facility] 05/25/2024 Tertiary Insurance:Self PayPolicy Number: Effective Date:2024-05-19 NOT GIVENTriHealth 04/28/2024 Kerry Hollyaton[address] [place] [address]Wyx: () Primary Insurance:[employer] Dual ComplPolicy Number: [id number] Date:9564-44-90LX [address] [address]VU: Kerry HollyatonDOB: 7588-22-32HBR315 [place] [address]Psc: () [facility] 04/28/2024 Secondary Insurance:MedicaidPoli cy Number: [id number] Date:2024-04-28 Kerry HollyatonDOB: 7950-30-44HDL527 [place] [address]Kqo: () [facility] 04/28/2024 Tertiary Insurance:MedicarePoli cy Number: [id number] Date:2024-04-28 Kerry HollyatonDOB: 9887-07-27FME045 [place] [address]Irq: () [facility] 04/28/2024 Tertiary Insurance:Self PayPolicy Number: Effective Date:2024-04-28 NOT GIVENTriHealth 04/27/2024 Kerry Hollyaton[address] [place] [address]Lpb: () Primary Insurance:[facility] Dual ComplPolicy Number: [id number] Date:9005-90-61AJ [address] [address]YO: Kerry HollyatonDOB: 4812-83-91MTL482 [place] [address]Qmg: () [facility] 04/27/2024 Secondary Insurance:MedicaidPoli cy Number: [id number] Date:2024-04-27 Kerry HollyatonDOB: 2830-88-24FUE948 [place] [address]Jio: () [facility] 04/27/2024 Tertiary Insurance:Self PayPolicy Number: Effective Date:2024-04-27 NOT GIVENTriHealth 04/08/2024 KERRY HOLLYATONDOB: [place], [place] [address]Vqw: (HP) Primary Insurance:[facility] [facility] MEDICAREPolicy Number: [id number] Date:2022-04-29 KERRY HOLLYATONDOB: [id number] [place] [address] [facility] EPIC 04/08/2024 Secondary Insurance:MEDICAID [place]Policy Number: [id number] Date:2021-07-28 KERRY HOLLYATONDOB: [id number] [place] [address] [facility] EPIC 04/07/2024 KERRY HOLLYATONDOB: [place], [place] [address]Hqa: () Primary Insurance:[facility] MEDICAREPolicy Number: [id number] Date:2022-04-29 KERRY HOLLYATONDOB: 7717-67-37YDT263 [place] [address] [facility] 04/07/2024 Secondary Insurance:MEDICAID [place]Policy Number: [id number] Date:2021-07-28 KERRY HOLLYATONDOB: [id number] [place] [address] [facility] EPIC 03/25/2024 KERRY HOLLYATONDOB: [place], [place] [address]Jwx: (HP) Primary Insurance:MEDICAIDPoli cy Number: [id number] Date:2021-07-28 KERRY HOLLYATONDOB: 3085-04-63GKE040 [place], [place] [address]Qif: (HP) [facility] 03/25/2024 Secondary Insurance:[facility] DUAL COMPLETEPolicy Number: [id number] Date:2023-04-29 KERRY HOLLYATONDOB: 8105-91-10XPI169 [place], [place] [address]Qya: (HP) [facility] 02/25/2024 KERRY HOLLYATONDOB: [place], [place] [address]Ssn: (HP) Primary Insurance:[facility] MEDICAREPolicy Number: [id number] Date:2022-04-29 KERRY HOLLYATONDOB: 8208-52-82YSX860 [place] [address] [facility] 02/25/2024 Secondary Insurance:MEDICAID [place]Policy Number: [id number] Date:2021-07-28 KERRY HOLLYATONDOB: [id number] [place] [address] [facility] EPIC 02/14/2024 Kerry Hollyaton[address] [place] [address]Rcu: () Primary Insurance:Self PayPolicy Number: Effective Date:2024-02-14 NOT GIVENTriHealth 02/10/2024 KERRY HOLLYATONDOB: [place], [place] [address]Xki: (HP) Primary Insurance:[facility] MEDICAREPolicy Number: [id number] Date:2022-04-29 KERRY HOLLYATONDOB: [id number] [place] [address] [facility] EPIC 02/10/2024 Secondary Insurance:MEDICAID [place] Number: [id number] Date:2021-07-28 KERRY Agustin SANDYATONDOB: 9338-61-81VIK108 [place] [address] [facility] EPIC
--- OUTSIDE RECORDS SUMMARY | 2025-01-27 10:00 | XMS_ITS | Clinical Summary ---
Author Organization [facility] Address [address] [place] [address] Phone Care Team Providers Care Parcel Carrier Name Role Phone Shantel Norton APRN-CONTROL PANEL OPERATOR Primary Care Pro vider Allergies Active Allergy [...] Description 12/30/2024 1:40 PM EDT Office Visit [place] [address] [address] Roland Faust MD Typical atrial flutter (Multi) (Primary Dx); Nonischemic cardiomyopathy (Multi); Hypertension, unspecified type; Hypercholesteremia; Obesity (BMI 30-39.9); Current smoker Discharge Disposition: Home 12/30/2024 Travel 2024 Scanned Document [facility] [address] [place] [address] Scanning, Generic Provider 11/23/2024 Scanned Document [facility] [address] [place] [address] Scanning, Generic Provider from Last 3 Months [...] EDT Office Visit [facility] [address] [facility] [address] [place] [address] Roland Faust MD [address] [facility] [address] [place] [address] Health Maintenance Due Date Last [...] DUAL COMPLETE MEDICAID DUAL COMPLETE Care Teams Parcel Carrier Relationship Specialty Start Date End Date Shantel Norton APRN-JAYSON [address] [place] [address] PCP - General Family Medicine 12/30/24
--- OUTSIDE RECORDS SUMMARY | 2025-01-27 10:00 | XMS_ITS | Encounter Summary ---
Author Organization [facility] Address [address] [place] [address] Care Team Providers Care Torque Tester Name Role Phone Sandra Lewis Primary Care Provider [phone] Sandra Lewis DO Primary Care Provider [phone] Encounter Details Date Type Department Care Team (Late Contact Info) Description 10/30/2023 External Result Encounter [facility] External Department Unsolicited Luan Kincaid MD [address] [facility] [address] [place] [address] Social History Tobacco Use Types Packs/Day Years [...] NUNN [address] [place] [address] Nereida Castro MD [address] [facility] [address] [place] [address] 02/10/2025 1:00 PM EDT Office Visit [facility] [address] [place] [address] Nereida Castro MD [address] [place] [address] 07/20/2025 4:00 PM EDT Office Visit [facility] [address] [place] [address] Luan Kincaid MD [address] [facility] [address] [place] [id number] documented as of this encounter Procedures Procedure [...] Segovia Jr., D.O.10/30/2023 3:15 PM Dictation Location: [place] [address] Transcribed By: PWS 10/30/23 1515 Dictated By: Edgar Segovia Jr, DO 10/30/23 1514 Signed By: <Electronically signed by Edgar Segovia Jr, DO in OV> 10/30/23 1515 Narrative 10/30/2023 3:17 PM EDT [facility] Main [place] [address] [place] [address] XRay Report Signed Patient: Kerry Gay MR#: [id number] 19 : 1955 Acct:[id number] Age/Sex: 67 / F ADM Date: 10/30/23 [...] Procedure Note Radiology, Radiologist, MD - 10/30/2023 [facility] Main [place] [address] [place] [address] XRay Report Signed Patient: Kerry Gay CMR#: [id number] 19 : 8Acct:[id number] Age/Sex: 67 / FADM Date: 10/30/23 Loc: [...] Segovia Jr., D.O.10/30/2023 3:15 PM Dictation Location: [place] [address] Transcribed By: [facility] 10/30/23 1515 Dictated By: Edgar Segovia Jr, DO 10/30/23 151 Signed By: <Electronically signed by Edgar Segovia Jr, inOV> 10/30/23 1515 us Luan Kincaid MD IMG XR PROCEDURES Final Result documented in this encounter Visit Diagnoses Not on filedocumented in this encounter Care Teams Torque Tester Relationship Specialty Start Date End Date Sandra Lewis DO PCP - General Family Medicine 01/09/23 10/14/24 Sandra Lewis DO [address] [place] [address] PCP - General Family Medicine 10/15/24 documented as of this encounter
--- OUTSIDE RECORDS SUMMARY | 2025-01-27 10:00 | XMS_ITS | Encounter Summary ---
Author Organization [facility] Address [address] [facility] [place] [address] Care Team Providers Care Mixing Operator Name Role Phone Sandra Lewis Primary Care Provider [phone] Debbie Sandra BONNER Primary Care Provider [phone] Encounter Details Date Type Department Care Team (Late Contact Info) Description 12/13/2023 Orders Only [facility] [address] [place] [address] Luan Kincaid MD [address] [place], [place] [id number] Social History Tobacco Use Types Packs/Day Years [...] NUNN [address] [place] [address] Nereida Castro MD [address] [place] [address] 02/10/2025 1:00 PM EDT Office Visit [facility] [place] [facility] [address] [place] [address] Nereida Castro MD [address] [place], [place] [address] 07/20/2025 4:00 PM EDT Office [facility] [address] [place] [address] Luan Kincaid MD [address] [address] documented as of this encounter Visit Diagnoses Not on filedocumented in this encounter Care Teams Mixing Operator Relationship Specialty Start Date End Date Sandra Lewis DO PCP - General Family Medicine 01/09/23 10/14/24 Sandra Lewis DO [address] [facility] [place] [address] PCP - General Family Medicine 10/15/24 documented as of this encounter
--- OUTSIDE RECORDS SUMMARY | 2025-01-27 10:01 | XMS_ITS | Encounter Summary ---
Author Organization [facility] Address [address] [place] [address] Phone Care Team Providers Care Database Admin Name Role Phone Sandra Lewis DO Primary Care Provider [phone] Shantel Norton JOB INTERVIEWER-FOUNTAIN WORKER Primary Care Pro vider Encounter Details Date Type Department Care Team (Late st Contact Info) Description 11/10/2023 Scanned Document [facility] [address] [place] [address] Scanning, Generic Provider Social History Tobacco Use [...] EDT Office Visit [facility] [address] [facility] [address] [place] [address] Roland Faust MD [address] [facility] [address] [place] [address] documented as of this encounter Procedures Procedure [...] documented as of this encounter Care Teams Database Admin Relationship Specialty Start Date End Date Sandra Lewis DO [address] [facility] [place] [address] PCP - General Family Medicine 09/25/23 12/29/24 Shantel Norton APRN-FOUNTAIN WORKER [address] [place] [address] PCP - General Family Medicine 12/30/24 documented as of this encounter
--- OUTSIDE RECORDS SUMMARY | 2025-01-27 10:01 | XMS_ITS | Encounter Summary ---
Author Organization [facility] Address [address] [place] [address] Phone Care Team Providers Care Repair Servicer Name Role Phone Sandra Lewis DO Primary Care Provider [phone] Shantel Norton PHYSICS AND ASTRONOMY PROFESSOR-EXTENSION CLERK Primary Care Pro vider Encounter Details Date Type Department Care Team (Late st Contact Info) Description 04/30/2024 Scanned Document [facility] [address] [place] [address] Scanning, Generic Provider Social History Tobacco Use [...] Description 08/17/2025 3:10 PM EDT Office Visit [facility] 703 [facility] [address] [place] [address] Roland Faust MD 703 [facility] 2, [address] [place] [address] documented as of this encounter Visit Diagnoses Not on filedocumented in this encounter Additional Health Concerns Assessment Noted Time A fall risk assessment has been complete d for the patient 12/16/2023 10:41 AM EDT documented as of this encounter Care Teams Repair Servicer Relationship Specialty Start Date End Date Sandra Lewis DO 25[address] [facility] [place] [address] PCP - General Family Medicine 09/25/23 12/29/24 Shantel Norton, NITZA-EXTENSION CLERK [address] [facility] [place] [place] [address] PCP - General Family Medicine 12/30/24 documented as of this encounter
--- OUTSIDE RECORDS SUMMARY | 2025-01-27 10:01 | XMS_ITS | Encounter Summary ---
Author Organization [facility] Address [address] [place] [address] Care Team Providers Care Metal Extrusion Supervisor Name Role Phone Sandra Lewis DO Primary Care Provider [phone] Encounter Details Date Type Department Care Team (Late st Contact Info) Description 01/19/2025 Bamboo flowsheet [facility] [address] [facility] [place] [address] Luan Kincaid MD [address] [facility] [address] [place] [id number] Social History Tobacco Use Types Packs/Day Years [...] NUNN [address] [place] [address] Nereida Castro MD [address] [facility] [address] [place] [address] 02/10/2025 1:00 PM EDT Office Visit [facility] [place] [facility] [address] [facility] [address] [place] [address] Nereida Castro MD [address] [facility] 210 [place] [address] 07/20/2025 4:00 PM EDT Office Visit [facility] [place] [facility] [address] [facility] 310 [place] [address] Luan Kincaid MD 3159 [facility] [address] [place], [place] [address] documented as of this encounter Visit Diagnoses Not on filedocumented in this encounter Care Teams Metal Extrusion Supervisor Relationship Specialty Start Date End Date Sandra Lewis DO 2520 [facility] [place] [address] PCP - General Family Medicine 10/15/24 documented as of this encounter
--- OUTSIDE RECORDS SUMMARY | 2025-01-27 10:01 | XMS_ITS | Encounter Summary ---
Author Organization [facility] Address [address] [place] [address] Phone Care Team Providers Care Inventory Accountant Name Role Phone Sandra Lewis DO Primary Care Provider [phone] Shantel Norton TREE TRIMMING SUPERVISOR-POWDER LINE REPAIRER Primary Care Pro vider Encounter Details Date Type Department Care Team (Late st Contact Info) Description 11/09/2023 Scanned Document [facility] [address] [place] [address] Scanning, Generic Provider Social History Tobacco Use [...] Description 08/17/2025 3:10 PM EDT Office Visit [place] [address] [facility] [address] [place] [address] Roland Faust MD 703 [facility] 2, [address] [place] [address] documented as of this encounter Visit Diagnoses Not on filedocumented in this encounter Additional Health Concerns Assessment Noted Time A fall risk assessment has been complete d for the patient 10/07/2023 9:51 AM EDT documented as of this encounter Care Teams Inventory Accountant Relationship Specialty Start Date End Date Sandra Lewis DO 2520 [facility] [place] [address] PCP - General Family Medicine 09/25/23 12/29/24 Shantel Norton, NITZA-POWDER LINE REPAIRER 1255 [facility] [place] [address] PCP - General Family Medicine 12/30/24 documented as of this encounter
--- OUTSIDE RECORDS SUMMARY | 2025-01-27 10:01 | XMS_ITS | Encounter Summary ---
Author Organization [facility] Address [address] [place] [address] Phone Care Team Providers Care Crossbar Frame Wirer Name Role Phone Sandra Lewis DO Primary Care Provider [phone] Shantel Norton BAKERY CHEF-3RD GRADE READING TEACHER Primary Care Pro vider Encounter Details Date Type Department Care Team (Late Contact Info) Description 01/06/2024 Scanned Document [facility] [address] [place] [address] Scanning, Generic Provider Social History Tobacco Use [...] 08/17/2025 3:10 PM EDT Office Visit [facility] [address] [facility] [address] [place] [address] Roland Faust MD 703 [facility] 2, [address] [place] [address] Scheduled Orders Name Type Priority Associated Diagnoses Orde r Schedule Ultrasound- OnBase Scan Imaging O rdered: 01/06/2024 documented as of this encounter Visit Diagnoses Not on filedocumented in this encounter Additional Health Concerns Assessment Noted Time A fall risk assessment has been complete d for the patient 12/16/2023 10:41 AM EDT documented as of this encounter Care Teams Crossbar Frame Wirer Relationship Specialty Start Date End Date Sandra Lewis DO [address] [place] [address] PCP - General Family Medicine 09/25/23 12/29/24 Shantel Norton APRN-3RD GRADE READING TEACHER [address] [place] [address] PCP - General Family Medicine 12/30/24 documented as of this encounter
--- OUTSIDE RECORDS SUMMARY | 2025-01-27 10:01 | XMS_ITS | Encounter Summary ---
Author Organization [facility] Address [address] [place] [address] Care Team Providers Care Rn Clinician Name Role Phone Sandra Lewis DO Primary Care Provider [phone] Encounter Details Date Type Department Care Team (Late st Contact Info) Description 01/26/2025 Telephone [facility] [place] [facility] [address] [facility] [address] [place] [address] Nereida Castro MD [address] [facility] [address] [place] [address] Social History Tobacco Use Types Packs/Day Years [...] can feel it growing. Call daughter back [phone] documented in this encounter Plan of Treatment Upcoming Encounters Date Type Department Care Team (Late st Contact Info) Description 02/04/2025 12:30 PM EDT Office Visit [facility] [place] [facility] [address] [place] [address] Nereida Castro MD [address] [place] [address] 02/10/2025 1:00 PM EDT Office Visit [facility] [place] [facility] [address] [place] [address] Nereida Castro MD [address] [place] [address] 07/20/2025 4:00 PM EDT Office Visit [facility] [place] [facility] [address] [place] [address] Luan Kincaid MD [address] [facility] [address] [address] documented as of this encounter Visit Diagnoses Not on filedocumented in this encounter Care Teams Rn Clinician Relationship Specialty Start Date End Date Sandra Lewis DO 2519 [facility] [place] [address] PCP - General Family Medicine 10/15/24 documented as of this encounter
--- OUTSIDE RECORDS SUMMARY | 2025-01-27 10:01 | XMS_ITS | Encounter Summary ---
Author Organization [facility] Address [address] [place] [address] Phone Care Team Providers Care Desk Editor Name Role Phone Sandra Lewis DO Primary Care Provider [phone] Shantel Norton DRILLING ASSISTANT-SLIP COVER SEAMSTRESS Primary Care Pro vider Encounter Details Date Type Department Care Team (Late Contact Info) Description 2023 Scanned Document [facility] [address] [place] [address] Scanning, Generic Provider Social History Tobacco Use [...] Description 08/17/2025 3:10 PM EDT Office Visit [place] [address] [facility] [address] [place] [address] Roland Faust MD 703 [facility] 2, [address] [place] [address] documented as of this encounter Visit Diagnoses Not on filedocumented in this encounter Additional Health Concerns Assessment Noted Time A fall risk assessment has been complete d for the patient 11/13/2023 1:54 PM EDT documented as of this encounter Care Teams Desk Editor Relationship Specialty Start Date End Date Sandra Lewis DO [address] [place] [address] PCP - General Family Medicine 09/25/23 12/29/24 Shantel Norton APRN-SLIP COVER SEAMSTRESS [address] [place] [address] PCP - General Family Medicine 12/30/24 documented as of this encounter
--- OUTSIDE RECORDS SUMMARY | 2025-01-27 10:01 | XMS_ITS | Encounter Summary ---
Author Organization [facility] Address [address] [place] [address] Phone Care Team Providers Care Yard Coupler Name Role Phone Sandra Lewis DO Primary Care Provider [phone] Shantel Norton GAS LEAK INSPECTOR HELPER-HOME RESTORATION SERVICE SUPERVISOR Primary Care Pro vider Encounter Details Date Type Department Care Team (Late st Contact Info) Description 11/12/2023 Scanned Document [facility] [address] [place] [address] Scanning, Generic Provider Social History Tobacco Use [...] PM EDT Office Visit [facility] 703 [facility] [address] [place] [address] Roland Faust MD [facility] [facility] [address] [place] [address] documented as of this encounter Visit Diagnoses Not on filedocumented in this encounter Additional Health Concerns Assessment Noted Time A fall risk assessment has been complete d for the patient 10/07/2023 9:51 AM EDT documented as of this encounter Care Teams Yard Coupler Relationship Specialty Start Date End Date Sandra Lewis DO 2528 [facility] [place] [address] PCP - General Family Medicine 09/25/23 12/29/24 Shantel Norton APRN-HOME RESTORATION SERVICE SUPERVISOR 1255 [facility] [place] [address] PCP - General Family Medicine 12/30/24 documented as of this encounter
--- OUTSIDE RECORDS SUMMARY | 2025-01-27 10:01 | XMS_ITS | Encounter Summary ---
Author Organization [facility] Address [address] [place] [address] Phone Care Team Providers Care Production Lapping Machine Operator Name Role Phone Sandra Lewis DO Primary Care Provider [phone] Shantel Norton PAINT MAKER-SALES PERFORMANCE MANAGER Primary Care Pro vider Encounter Details Date Type Department Care Team (Late Contact Info) Description 07/22/2024 Scanned Document [facility] [address] [place] [address] Scanning, Generic Provider Social History Tobacco Use [...] Description 08/17/2025 3:10 PM EDT Office Visit [facility] 703 [facility] [address] [place] [address] Roland Faust MD 703 [facility] 2, [address] [place] [address] Scheduled Orders Name Type Priority Associated Diagnoses Orde r Schedule Ultrasound- OnBase Scan Imaging O rdered: 07/22/2024 documented as of this encounter Visit Diagnoses Not on filedocumented in this encounter Additional Health Concerns Assessment Noted Time A fall risk assessment has been complete d for the patient 06/26/2024 9:48 AM EST documented as of this encounter Care Teams Production Lapping Machine Operator Relationship Specialty Start Date End Date Sandra Lewis DO [address] [place] [address] PCP - General Family Medicine 09/25/23 12/29/24 Shantel Norton APRN-SALES PERFORMANCE MANAGER [address] [place] [address] PCP - General Family Medicine 12/30/24 documented as of this encounter
--- OUTSIDE RECORDS SUMMARY | 2025-01-27 10:01 | XMS_ITS | Encounter Summary ---
Author Organization [facility] Address [address] [place] [address] Phone Care Team Providers Care Textile Screen Maker Name Role Phone Sandra Lewis DO Primary Care Provider [phone] Shantel Norton REFUSE COLLECTOR-POWER PROJECT MANAGER Primary Care Pro vider Encounter Details Date Type Department Care Team (Late st Contact Info) Description 09/12/2023 Scanned Document [facility] [address] [place] [address] Scanning, Generic Provider Social History Tobacco Use [...] Description 08/17/2025 3:10 PM EDT Office Visit [facility] 703 [facility] [address] [place] [address] Roland Faust MD 703 [facility] 2, [address] [place] [address] documented as of this encounter [...] on filedocumented in this encounter Care Teams Textile Screen Maker Relationship Specialty Start Date End Date Sandra Lewis DO 2520 [place] [address] PCP - General Family Medicine 09/25/23 12/29/24 Shantel Norton APRN-POWER PROJECT MANAGER [address] [place] [address] PCP - General Family Medicine 12/30/24 documented as of this encounter
--- OUTSIDE RECORDS SUMMARY | 2025-01-27 10:01 | XMS_ITS | Encounter Summary ---
Author Organization [facility] Address [address] [place] [address] Care Team Providers Care Sheet Roller Operator Name Role Phone Darrell Weinstein Primary Care Provider [phone] Nereida Castro MD Unavailable [phone] Source Comments In the event this information is protected by the Federal Confidentiality of Alcohol and Drug AbusePatient Records regulations: The Federal rules restrict any use of the information to criminally investigate or prosecute any alcohol or drug abuse patient.[facility] Encounter Details Date Type Department Care Team (Late st Contact Info) Description 2022 [place] [address] Provider, f Medicare Coverage of Physical Exams [...] N ot on file 04/03/2020 Data from: https://www.[email or web address].medicine.[email or web address].edu/. Last address used for calculation Not on [...] on filedocumented in this encounter Care Teams Sheet Roller Operator Relationship Specialty Start Date End Date Darrell Weinstein [address] [facility] 103 [place] [address] PCP - General Family Medicine 11/06/18 Nereida Castro MD [address] [facility] [address] [place] [address] Referring Obstetrics 11/06/18 documented as of this encounter
--- OUTSIDE RECORDS SUMMARY | 2025-01-27 10:01 | XMS_ITS | Clinical Summary ---
Author Organization [facility] Address [address] [place] [address] Care Team Providers Care Traffic Incident Management Manager Name Role Phone Sandra Leiws DO Primary Care Provider [phone] Allergies Active Allergy Reactions Criticality Noted Date Comments Sulfa Antibiotics GI intolerance,Unknown 2018 Medications Continuous Blood Gluc Sensor (inMotionNowStyle Brent 14 Day Sensor) [facility] apply 1 SENSOR as directed every 14 days use with DEVICE to MONIT... (REFER TO PRESCRIPTION NOTES). 3 Active Toujeo SoloStar 300 UNIT/ML injection inject 20 units subcutaneously as directed 3 Active Droplet Pen [place] 32G X 4 MM [facility] use 1 PEN NEEDLE [...] (07/21/2024 3:08 PM EDT): (Continue current regimen.) [facility] records - neuro consults, EEG, MR, carotids, echo, discharge summary. Assessment & Plan (04/07/2024 2:16 PM EST): Pt to retry donepezil 15 qam (or 10/5). Assessment & Plan (02/25/2024 2:59 PM EDT): Add memantine 10 -> bid. Then add donepezil 10, titrate. Handout. Get MR images transferred to [facility] PACS for my review. Guyon syndrome, [...] neuropathy, worsening. Get full set of labs (Replaced By [facility]). We have some but not all - [...] 01/26/2025 Telephone [facility] [place] [facility] [address] [facility] [address] [place] [address] Nereida Castro MD 01/19/2025 4:00 PM EDT Office Visit [facility] [address] [facility] [address] [place] [address] Luan Kincaid MD Weakness of both lower extremities (Primary Dx); Carpal tunnel syndrome, bilateral; Cognitive decline; Cervical paraspinal muscle spasm; B12 deficiency; Guyon syndrome, unspecified laterality 01/19/2025 Bamboo flowsheet [facility] [address] [place] [address] Luan Kincaid MD 01/19/2025 Travel 12/31/2024 4:00 PM EDT Ancillary Procedure [facility] [address] [facility] [address] [place] [address] Lumbosacral radiculopathy at L5; Weakness of both lower extremities; Leg pain, bilateral 12/31/2024 Travel 12/18/2024 1:15 PM EDT Procedure Visit [facility] [place] [facility] [address] [facility] [address] [place] [address] Luan Kincaid MD Numbness (Primary Dx); Paresthesias; Pain in both lower extremities; Lumbosacral radiculopathy at L5 12/18/2024 Orders Only [facility] [address] [facility] [address] [place] [address] Luan Kincaid MD Lumbosacral radiculopathy at L5; Weakness of both lower extremities; Leg pain, bilateral 12/18/2024 Travel 12/11/2024 1:15 PM EDT Procedure Visit [facility] [place] [facility] [address] [place] [address] Luan Kincaid MD Hand weakness (Primary Dx); Carpal tunnel syndrome, bilateral 12/11/2024 Travel 11/30/2024 Telephone [facility] [facility] [address] [place] [address] Maureen Fritz DPM Error (VOID this visit) 11/23/2024 2:45 PM EDT Office Visit [facility] [place] [facility] [address] [place] [address] Maureen Fritz DPM Ulcer of right foot with fat layer exposed (HCC) (Primary Dx); 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); Abscess of right foot; At increased risk for emergency hospital admission 11/23/2024 Bamboo flowsheet [facility] [address] [place] [address] Maureen Fritz DPM 11/23/2024 Travel 11/20/2024 Telephone [facility] [address] [place] [address] Beatrice Boyd MA HH Orders Clarification 11/18/2024 Telephone [facility] [place] [facility] [address] [place] [address] Beatrice Boyd MA HH Orders 11/18/2024 Telephone [facility] [address] [place] [address] Maureen Fritz DPM 11/16/2024 4:00 PM EDT Office Visit [facility] [place] [facility] [address] [place] [address] Maureen Fritz DPM Ulcer of right foot with fat layer exposed (HCC) (Primary Dx); 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); Cellulitis of right foot; Deformity of toe, right 11/16/2024 External Result Encounter [facility] External Department Unsolicited Maureen Fritz DPM 11/16/2024 Travel 11/16/2024 Telephone [facility] [address] [place] [phone] Shantel Parsons MA 10/31/2024 Refill [facility] [address] [place] [address] Luan Kincaid MD Neurogenic pain from [...] [address] [place] [address] 02/10/2025 1:00 PM EDT Office Visit [facility] [address] [place] [address] Nereida Castro MD [address] [place] [address] 07/20/2025 4:00 PM EDT Office Visit [facility] [address] [place] [address] Luan Kincaid MD [address] [address] Procedures Procedure Name Priority Date/Time Associated Diagnosis [...] Laterality Modality Lower Extremities, Foot Right [facility] Imaging Narrative 11/16/2024 5:13 PM EDT Imaging [...] EDT) AZITHROMYCIN <2(S) 11/18/2024 9:54 AM EDT [facility] CEFTAROLINE <0.5(S) 11/18/2024 9:54 AM EDT [facility] CIPROFLOXACIN <1(S) 11/18/2024 9:54 AM EDT [facility] CLINDAMYCIN 0.5(S) 11/18/2024 9:54 AM EDT [facility] DAPTOMYCIN 1(S) 11/18/2024 9:54 AM EDT [facility] LEVOFLOXACIN <1(S) 11/18/2024 9:54 AM EDT [facility] LINEZOLID 2(S) 11/18/2024 9:54 AM EDT [facility] OXACILLIN <0.25(S) 11/18/2024 9:54 AM EDT [facility] PENICILLIN >2(R) 11/18/2024 9:54 AM EDT [facility] TETRACYCLINE <4(S) 11/18/2024 9:54 AM EDT [facility] TRIMETHOPRIM/SULF AMETHOXAZOLE <0.5/9.5( S) 11/18/2024 9:54 AM EDT [facility] VANCOMYCIN 1(S) 11/18/2024 9:54 AM EDT [facility] Other Structure of right foot / Unknown 11/16/2024 4:48 PM EDT 11/16/2024 5:30 PM EDT Comment:Ulcer Maureen Fritz [facility] Final Resu lt [facility] [address] [place] [address], [facility] [address] [place] [address] * (ABNORMAL) AEROBIC FAMILIA CHARGE ([id number]) (11/16/2024 4:48 PM EDT) AMIKACIN <16(S) 11/18/2024 9:54 AM EDT [facility] AMOXACILLIN/K CLAVULANATE <8/4(S) 11/18/2024 9:54 AM EDT [facility] AMPICILLIN/SULBAC ARREDONDO 8/4(S) 11/18/2024 9:54 AM EDT [facility] AZTREONAM <4(S) 11/18/2024 9:54 AM EDT [facility] CEFAZOLIN >16(R) 11/18/2024 9:54 AM EDT [facility] CEFEPIME <2(S) 11/18/2024 9:54 AM EDT [facility] CEFTAZIDIME <1(S) 11/18/2024 9:54 AM EDT [facility] CEFTAZIDIME/AVIBA CTAM <4(S) 11/18/2024 9:54 AM EDT [facility] CEFTOLOZANE/TAZOB ACTAM <2(S) 11/18/2024 9:54 AM EDT [facility] CEFTRIAXONE <1(S) 11/18/2024 9:54 AM EDT [facility] CEFUROXIME 8(S) 11/18/2024 9:54 AM EDT [facility] CIPROFLOXACIN <0.25(S) 11/18/2024 9:54 AM EDT [facility] ERTAPENEM <0.5(S) 11/18/2024 9:54 AM EDT [facility] GENTAMICIN <2(S) 11/18/2024 9:54 AM EDT [facility] LEVOFLOXACIN <0.5(S) 11/18/2024 9:54 AM EDT [facility] MEROPENEM <1(S) 11/18/2024 9:54 AM EDT [facility] MEROPENEM/VABORBA CTAM <2(S) 11/18/2024 9:54 AM EDT [facility] PIPERACILLIN/TAZO BACTAM <8(S) 11/18/2024 9:54 AM EDT [facility] TETRACYCLINE <4(S) 11/18/2024 9:54 AM EDT [facility] TIGECYCLINE <2(S) 11/18/2024 9:54 AM EDT [facility] TOBRAMYCIN <2(S) 11/18/2024 9:54 AM EDT [facility] TRIMETHOPRIM/SULF AMETHOXAZOLE <0.5/9.5( S) 11/18/2024 9:54 AM EDT [facility] Other Structure of right foot / Unknown 11/16/2024 4:48 PM EDT 11/16/2024 5:30 PM EDT Comment:Ulcer Maureen Fritz M [facility] Final Resu lt Performing Organization Address [facility] de Phone Number [facility] [address] [place] [address], [facility] [address] [place] [address] * SUPERFICIAL WOUND CULTURE ([facility] (11/16/2024 4:48 PM EDT) [facility] ORGANISM Klebsiella oxytoca 9:54 AM EDT [facility] QUANTITY OF GROWTH Moderate Growth 11/18/2024 9:54 AM EDT [facility] ORGANISM Staphylococcus aureus 11/18/2024 9:54 AM EDT [facility] QUANTITY OF GROWTH Heavy Growth 11/18/2024 9:54 AM EDT [facility] Other Structure of right foot / Unknown 11/16/2024 4:48 PM EDT 11/16/2024 5:30 PM EDT Comment:Ulcer Maureen Fritz DPM LAB MICROBIOLOGY - GENERAL ORDERABLES Final Result Performing Organization Address [facility] de Phone Number [facility] [address] [place] [address], [facility] [address] [place] [address] from Last 3 Months Insurance [employer] MEDICARE [place]ICAID [place] Care Teams Traffic Incident Management Manager Relationship Specialty Start Date End Date Sandra Lewis DO [address] [facility] [place] [phone] PCP - General Family Medicine 10/15/24
--- OUTSIDE RECORDS SUMMARY | 2025-01-27 10:01 | XMS_ITS | Clinical Summary ---
Author Organization [facility] Address [address] [place] [address] Care Team Providers Care Manager Plumbing Name Role Phone Darrell Weinstein Primary Care Provider [phone] Nereida Castro MD Unavailable [phone] Allergies Active Allergy Reactions Criticality Noted [...] N ot on file 04/03/2020 Data from: [email or web address] Last address used for calculation Not [...] COMP METABOLIC PANEL (12/17/2018 3:05 PM EDT) [facility] Protein, Total 7.6 6.3 - 8.0 g/dL 12/18/2018 3:35 AM [facility] Albumin 4.2 3.9 - 4.9 g/dL 12/18/2018 3:35 AM [facility] Calcium 10.6(H) 8.5 - 10.2 mg/dL 12/18/2018 3:35 AM [facility] Bilirubin, Total 0.3 0.2 - 1.3 mg/dL 12/18/2018 3:35 AM [facility] Alkaline Phosphatase 88 34 - 123 U/L 12/18/2018 3:35 AM [facility] AST 28 13 - 35 U/L 12/18/2018 3:35 AM [facility] Glucose 89 74 - 99 mg/dL 12/18/2018 3:35 AM [facility] Comment: The [place] Diabetes Association (ADA) provides guidance for cutoff [...] Standards of Medical Care in Diabetes 2016, [place] Diabetes Association. Diabetes Care. 2016.39(Suppl 1). BUN 10 7 - 21 mg/dL 12/18/2018 3:35 AM [facility] Creatinine 0.73 0.58 - 0.96 mg/dL 12/18/2018 3:35 AM [facility] Sodium 138 136 - 144 mmol/L 12/18/2018 3:35 AM [facility] Potassium 4.4 3.7 - 5.1 mmol/L 12/18/2018 3:35 AM [facility] Chloride 100 97 - 105 mmol/L 12/18/2018 3:35 AM EDT [facility] CO2 21(L) 22 - 30 mmol/L 12/18/2018 3:35 AM EDT [facility] Anion Gap 17 9 - 18 mmol/L 12/18/2018 3:35 AM EDT [facility] ALT 22 7 - 38 U/L 12/18/2018 3:35 AM EDT [facility] eGFR- >60 12/18/2018 3:35 AM EDT [facility] eGFR-All Other Races >60 . 12/18/2018 3:35 AM EDT [facility] Comment: eGFR (Estimated GFR) Units of [...] EDT 12/17/2018 3:07 PM EDT Shantel Celestin APRN.OUTSOLE CUTTER MACHINE LABORATORY Final R esult [facility] [address] [place] [address] [facility] [address] [place] [address] from Last 3 Months or Most Recently Relevant to Health Maintenance Insurance [facility] MEDICARE ADVANTAGE HMO Care Teams Manager Plumbing Relationship Specialty Start Date End Date Darrell Weinstein [address] [facility] [address] [place] [address] PCP - General Family Medicine 11/06/18 Nereida Castro MD [address] [facility] [address] [place] [address] Referring Obstetrics 11/06/18
--- OUTSIDE RECORDS SUMMARY | 2025-01-27 10:01 | XMS_ITS | Encounter Summary ---
Author Organization [facility] Address [address] [place] [address] Phone Care Team Providers Care Cold Rolling Supervisor Name Role Phone Sandra Lewis DO Primary Care Provider [phone] Shantel Norton MANAGER OF LEARNING-MIXER DRIVER Primary Care Pro vider Encounter Details Date Type Department Care Team (Late st Contact Info) Description 09/14/2023 Scanned Document [facility] [address] [place] [address] Scanning, Generic Provider Social History Tobacco Use [...] EDT Office Visit [facility] [address] [facility] [address] [place] [address] Roland Faust MD [address] [facility] [address], [address] [place] [address] documented as of this encounter Visit Diagnoses Not on filedocumented in this encounter Care Teams Cold Rolling Supervisor Relationship Specialty Start Date End Date Sandra Lewis DO [address] [facility] [place] [address] PCP - General Family Medicine 09/25/23 12/29/24 Shantel Norton APRN-MIXER DRIVER [address] [place] [address] PCP - General Family Medicine 12/30/24 documented as of this encounter
--- OUTSIDE RECORDS SUMMARY | 2025-01-27 10:01 | XMS_ITS | Encounter Summary ---
Author Organization [facility] Address [address] [place] [address] Phone Care Team Providers Care Instrumentation Manager Name Role Phone Sandra Lewis DO Primary Care Provider [phone] Shantel Norton DEMAND PLANNING MANAGER-TAX SENIOR ASSOCIATE Primary Care Pro vider Encounter Details Date Type Department Care Team (Late st Contact Info) Description 2024 Scanned Document [facility] [address] [place] [address] Scanning, Generic Provider Social History Tobacco Use [...] Description 08/17/2025 3:10 PM EDT Office Visit [place] [address] [facility] [address] [place] [address] Roland Faust MD [address] [facility] [address], [address] [place] [address] documented as of this encounter Visit Diagnoses Not on filedocumented in this encounter Additional Health Concerns Assessment Noted Time A fall risk assessment has been complete d for the patient 06/26/2024 9:48 AM EST documented as of this encounter Care Teams Instrumentation Manager Relationship Specialty Start Date End Date Sandra Lewis DO [address] [facility] [place] [address] PCP - General Family Medicine 09/25/23 12/29/24 Shantel Norton, NITZA-TAX SENIOR ASSOCIATE [address] [facility] [place] [address] PCP - General Family Medicine 12/30/24 documented as of this encounter
--- OUTSIDE RECORDS SUMMARY | 2025-01-27 10:01 | XMS_ITS | Encounter Summary ---
Author Organization [facility] Address [address] [place] [address] Phone Care Team Providers Care Medical Insurance Claims Processor Name Role Phone Sandra Lewis DO Primary Care Provider [phone] Shantel Norton APRN-SUPERVISOR STOCK RANCH Primary Care Pro vider Encounter Details Date Type Department Care Team (Late st Contact Info) Description 12/02/2023 Scanned Document [facility] [address] [place] [phone] Scanning, Generic Provider Social History Tobacco Use [...] Description 08/17/2025 3:10 PM EDT Office Visit [facility] [address] [facility] [address] [place] [address] Roland Faust MD 703 [facility] [address], [address] [place] [address] documented as of this encounter Visit Diagnoses Not on filedocumented in this encounter Additional Health Concerns Assessment Noted Time A fall risk assessment has been complete d for the patient 11/13/2023 1:54 PM EDT documented as of this encounter Care Teams Medical Insurance Claims Processor Relationship Specialty Start Date End Date Sandra Lewis DO [address] [facility] [place] [address] PCP - General Family Medicine 09/25/23 12/29/24 Shantel Norton APRN-SUPERVISOR STOCK RANCH [address] [facility] [place] [address] PCP - General Family Medicine 12/30/24 documented as of this encounter
--- OUTSIDE RECORDS SUMMARY | 2025-01-27 10:01 | XMS_ITS | Encounter Summary ---
Author Organization [facility] Address [address] [place] [address] Care Team Providers Care Kindergartners Helper Name Role Phone Sandra Lewis DO Primary Care Provider [phone] Encounter Details Date Type Department Care Team [...] [facility] [address] [place] [address] Nereida Castro MD [address] [place] [address] 02/10/2025 1:00 PM EDT Office Visit [facility] [address] [place] [phone] Nereida Castro MD [address] [place] [address] 07/20/2025 4:00 PM EDT Office Visit [facility] [place] [facility] [address] [facility] [place] [phone] C[place], Luan Snyder MD [address] [facility] [address] [place] [address] documented as of this encounter Visit Diagnoses Not on filedocumented in this encounter Care Teams Kindergartners Helper Relationship Specialty Start Date End Date Sandra Lewis DO [address] [facility] [place] [phone] PCP - General Family Medicine 10/15/24 documented as of this encounter
--- OUTSIDE RECORDS SUMMARY | 2025-01-27 10:01 | XMS_ITS | Encounter Summary ---
Author Organization [facility] Address [address] [place] [address] Phone Care Team Providers Care Head Batcher Name Role Phone Sandra Lewis DO Primary Care Provider [phone] Shantel Norton TANK INSPECTOR-LEGISLATIVE AIDE Primary Care Pro vider Encounter Details Date Type Department Care Team (Late st Contact Info) Description 11/11/2023 Scanned Document [facility] [address] [place] [phone] Scanning, Generic Provider Social History Tobacco Use [...] Description 08/17/2025 3:10 PM EDT Office Visit [facility] 703 [facility] [address] [place] [phone] Roland Faust MD [facility] [facility], [address] [place] [address] documented as of this encounter Visit Diagnoses Not on filedocumented in this encounter Additional Health Concerns Assessment Noted Time A fall risk assessment has been complete d for the patient 10/07/2023 9:51 AM EDT documented as of this encounter Care Teams Head Batcher Relationship Specialty Start Date End Date Sandra Lewis DO [address] [facility] [place] [address] PCP - General Family Medicine 09/25/23 12/29/24 Shantel Norton APRN-LEGISLATIVE AIDE [address] [facility] [place] [address] PCP - General Family Medicine 12/30/24 documented as of this encounter
--- OUTSIDE RECORDS SUMMARY | 2025-01-27 10:01 | XMS_ITS | Encounter Summary ---
Author Organization [facility] Address [address] [place] [address] Phone Care Team Providers Care Director Of Patient Care Name Role Phone Sandra Lewis DO Primary Care Provider [phone] Shantel Norton METAL SHEET ROLLER OPERATOR-RIDING COACH Primary Care Pro vider Encounter Details Date Type Department Care Team (Late st Contact Info) Description 11/23/2024 Scanned Document [facility] [address] [place] [address] Scanning, Generic Provider Social History Tobacco Use [...] Description 08/17/2025 3:10 PM EDT Office Visit [place] [address] [facility] [address] [place] [address] Roland Faust MD 703 [facility] 2, [address] [place] [address] documented as of this encounter Visit Diagnoses Not on filedocumented in this encounter Additional Health Concerns Assessment Noted Time A fall risk assessment has been complete d for the patient 06/26/2024 9:48 AM EST documented as of this encounter Care Teams Director Of Patient Care Relationship Specialty Start Date End Date Sandra Lewis DO [address] [facility] [place] [address] PCP - General Family Medicine 09/25/23 12/29/24 Shantel Norton, NITZA-RIDING COACH [address] [facility] [place] [address] PCP - General Family Medicine 12/30/24 documented as of this encounter
--- OUTSIDE RECORDS SUMMARY | 2025-01-27 10:01 | XMS_ITS | Encounter Summary ---
Author Organization [facility] Address [address] [place] [address] Phone Care Team Providers Care Branding Machine Tender Name Role Phone Sandra Lewis DO Primary Care Provider [phone] Shantel Norton RETAIL BRAND AMBASSADOR-MARRIAGE AND FAMILY COUNSELOR Primary Care Pro vider Encounter Details Date Type Department Care Team (Late st Contact Info) Description 09/13/2023 Scanned Document [facility] [address] [place] [address] Scanning, Generic Provider Social History Tobacco Use [...] Description 08/17/2025 3:10 PM EDT Office Visit [facility] [address] [facility] 250 [place] [address] Roland Faust MD 703 [facility] 2, [address] [place] [address] documented as of this encounter Visit Diagnoses Not on filedocumented in this encounter Care Teams Branding Machine Tender Relationship Specialty Start Date End Date Sandra Lewis DO [address] [facility] [place] [address] PCP - General Family Medicine 09/25/23 12/29/24 Shantel Norton APRN-MARRIAGE AND FAMILY COUNSELOR [address] [place] [address] PCP - General Family Medicine 12/30/24 documented as of this encounter
--- OUTSIDE RECORDS SUMMARY | 2025-01-27 10:02 | XMS_ITS | Encounter Summary ---
Author Organization [facility] Address [address] [place] [address] Phone Care Team Providers Care Nurse Educator Name Role Phone Sandra Lewis DO Primary Care Provider [phone] Shantel Norton CLAIMS SERVICE ADJUSTOR-HAND EDGE BANDER Primary Care Pro vider Encounter Details Date Type Department Care Team (Late st Contact Info) Description 04/28/2024 Scanned Document [facility] [address] [place] [address] Scanning, Generic Provider Social History Tobacco Use [...] Office Visit [facility] 703 [facility] 250 [place] [address] Roland Faust MD 703 [facility] 2, [address] [place] [address] documented as of this encounter [...] documented as of this encounter Care Teams Nurse Educator Relationship Specialty Start Date End Date Sandra Lewis DO 2520 [place] [address] PCP - General Family Medicine 09/25/23 12/29/24 Shantel Norton APRN-HAND EDGE BANDER 1255 [facility] [place] [address] PCP - General Family Medicine 12/30/24 documented as of this encounter
== END 2025-01-27 09:59 | disposition home or self-care (01) ==
LOC: WC 09:58
PROVIDERS: Family Provider Family Medicine; PCP Family Medicine; Visit Provider Podiatrist Foot & Ankle Surgery
DX: D73.89 Other diseases of spleen (principal); R93.89 Abnormal findings on diagnostic imaging of other specified body structures; E11.621 Type 2 diabetes mellitus with foot ulcer; L97.415 Non-pressure chronic ulcer of right heel and midfoot with muscle involvement without evidence of necrosis
CPT/HCPCS: 11042; 29445; 36415; 74183; 82565; A9575

== ENCOUNTER 2025-01-28 14:25 | Outpatient (OUT) | payer MEDICARE, MEDICAID, SELFPAY ==
--- OUTSIDE RECORDS SUMMARY | 2015-08-21 20:00 | XMS_ITS | Continuity of Care Document ---
Author Organization [facility] Address [address] [place] [address] Phone Care Team Providers Care Bag Bundler Name Role Phone Bridget VARGAS, Margarita Unavailable [...] Diagnoses Date Provider Providers Copied on Encounter [facility], [address] [place], [place], [id number] , tel:[phone] [facility] - OP No Information 6 Bridget Avila. [address] [facility] Physician Office [place], [place], [id number], [place]. tel:[phone] Referring Provider: Margarita Gutierrez, [address] [facility] Physician Office Building, [place], [address] . tel:[phone] [facility], [address] [place], [place], [address] , tel:[phone] [facility] - OP Shortness of breathChest pain, unspecifiedDizzines s and giddiness 6 Susie Del Toro. [address] [facility] Physicians Office [place], [place], [id number], [place]. tel:[phone] Referring Provider: Margarita Gutierrez, [address] [facility] Physician Office Building, [place], [address] . tel:[phone] [facility], [address] [facility], [place], [place], [address] , tel:[phone] [facility] - OP Shortness of breathChest pain, unspecifiedDizzines s and giddiness Apr-0 6-201 6 Jean Pierre-Marietta Blackwell. [address] [facility] Physicians Office Building, [place], [place], [facility], . tel:[phone] Referring Provider: Margarita Gutierrez, [address] [facility] Physician Office Building, [place], [address] . tel:[phone] Family History Family Member Type Diagnosis Age At Onset No Information Payers Payer name Insurance type Covered constitution party ID Jeremiah espinoza(link) Yoana [id number] Social History Type Description Quantity Date Captured [...]
--- OUTSIDE RECORDS SUMMARY | 2015-08-31 07:55 | XMS_ITS | Continuity of Care Document ---
Author Organization [facility] Address [address] [place] [address] Phone Care Team Providers Care Differential Tester Name Role Phone Newton Segura MD Unavailable [...] Diagnoses Date Provider Providers Copied on Encounter [facility], [address] [place] [address], [id number], tel:[phone] [facility] No Information 6 Colton Glez. [address] [facility] Physician Office Building, [place], [place], [id number], . tel:[phone] OFFICE/OUTPAT IENT VISIT, [facility] Physician [facility], [address] [place] [address], [id number], [place] tel:[phone] [facility] Hyperlipidemia , unspecified hyperlipidemia typeObesity, unspecified obesity severity, unspecified obesity typeShortness of breathEssentia l hypertension, hypertension with unspecified goal 6 Georgia Mastersi. [address] [place] [address], [place], [place], [id number], [place]. tel:[phone] OFFICE CONSULTATION [facility] Physician [facility], [address] [place] [address], [id number], [place] tel:[phone] [facility] Shortness of breathEssentia l hypertension, hypertension with unspecified goalHyperlipid emia LDL goal <100Diabetes mellitus type II, non insulin dependent Jun- 6 Bridget Avila. [address] [facility] Physician Office Building, [place], [place], [id number], [place]. tel:[phone] Referring Provider: Sadie Fritz NP, [facility] Man[facility] Saldivar, [place], [address]. tel:[phone] [facility] Physician [facility], [address] [place] [address], [id number], [place] tel:[phone] [facility] No Information 6 Bridget Avila. [address] [facility] Physician Office Building, [place], [place], [id number], [place]. tel:[phone] OFFICE/OUTPAT IENT VISIT, [facility], [address] [place] [address], [id number], [place] tel:[phone] [facility] Obesity, Morbid (chief complaint) Body mass index (BMI) 33.0-33.9, adult 7201 5 Steve Bishop. [address] [facility] Physician Office Building, [place], [place], [id number], [place]. tel:[phone] Family History Family Member Type Diagnosis Age At Onset Sister Problem (finding) no hx of CAD Mother Problem (finding) CHF and HTN Brother Problem (finding) Alive and well Sister Problem (finding) 64 Father Problem (finding) [place] with hx of cabg (Cau se Of ) 79 Sister Problem (finding) myocardial inf arct in first degree female relative less than 65 years of age (Cause Of ) 64 Father Problem (finding) Brother Problem (finding) No hx of CAD Payers Payer name Insurance type Covered green party ID Jeremiah espinoza(rod Lees [id number] Social History Type Description Quantity Date Captured [...] Referral Ordered: Stress Test Cardiovascular (Plain Treadmill) ordered Referral Ordered: X-Ray Chest PA & Lateral: 2 View ordered Referral Ordered: Complete Pulmonary Function Test ordered History [...] 144/4.1. Related to Hyperlipidemia, unspecified hyperlipidemia type Blood pressure is cu rrently under good control on current medications and I made no changes Related to Essential hypertension, hypertension with unspecified goal Believe that her jakob rtness of breath [...] screening purposes. Related to Shortness of breath She is on statin the rapy and [...]
--- OUTSIDE RECORDS SUMMARY | 2020-07-25 11:15 | XMS_ITS | Continuity of Care Document ---
Author Organization [facility] Address [address] [place] [address] Phone Care Team Providers Care Supervisor [employer] Name Role Phone John Morgan Unavailable Unavailable [...] CHIROPRACTIC MANIPULATION GLYCOSYLATED HEMOGLOBIN TEST OFFICE/OUTPATIENT VISIT, [facility] Advance Directives Directive Yes / No Effective Date File Name No Information Encounters Encounter Description Practice Location Reason(s) For Visit Diagnoses Date Provider Providers Copied on Encounter [facility], [address] [place] [address], [id number] , tel: [phone] [facility] cervical spine (chief complaint) cervical spine (chief complaint) Segmental and somatic dysfunction of cervical regionCervicalgiaSegm ental and somatic dysfunction of lumbar region 9- 1 Eddie Lopez. [address] [place] [address], [id number] , [place]. tel: [phone] [facility], [address] [place] [address], [id number] , tel: [phone] [facility] cervical spine (chief complaint) cervical spine (chief complaint) Segmental and somatic dysfunction of cervical regionCervicalgiaSegm ental and somatic dysfunction of lumbar region 0-201 9 Eddie Lopez. [address] [place] [address], [id number] , [place]. tel: [phone] [facility], [address] [place] [address], [id number] , [place] tel: [phone] [facility] cervical spine (chief complaint) cervical spine (chief complaint) Segmental and somatic dysfunction of cervical regionCervicalgiaSegm ental and somatic dysfunction of lumbar regionLow back pain Jul-0 9-201 9 Eddie Lopez. [address] [place] [address], [id number] , [place]. tel: [phone] [facility], [address] [place] [address], [id number] , [place] tel: [phone] [facility] cervical spine (chief complaint) cervical spine (chief complaint) Segmental and somatic dysfunction of cervical regionCervicalgiaSegm ental and somatic dysfunction of lumbar regionLow back pain 9 Eddie Lopez. [address], [place], [id number] , [place]. tel: [phone] [facility], [address], [place], [id number] , [place] tel: [phone] [facility] cervical spine (chief complaint) cervical spine (chief complaint) Segmental and somatic dysfunction of cervical regionCervicalgiaSegm ental and somatic dysfunction of lumbar regionLow back pain 9 Eddie Lopez. [address], [place], [id number] , [place]. tel: [phone] [facility], [address] [place] [address], [id number] , [place] tel: [phone] [facility] cervical spine (chief complaint) cervical spine (chief complaint) Segmental and somatic dysfunction of cervical regionCervicalgiaSegm ental and somatic dysfunction of lumbar region 8 Eddie Lopez. [address], [place], [id number] , [place]. tel: [phone] [facility], [address] [place] [address], [id number] , [place] tel: [phone] [facility] Spine Care (chief complaint) Segmental and somatic dysfunction of cervical regionCervicalgiaSegm ental and somatic dysfunction of lumbar region 8 Eddie Lopez. [address] [place] [address], [id number] , [place]. tel: [phone] [facility], [address] [place] [address], [id number] , [place] tel: [phone] [facility] Spine Care (chief complaint) Segmental and somatic dysfunction of cervical regionCervicalgiaSegm ental and somatic dysfunction of lumbar region 8 Eddie Lopez. [address], [place], [id number] , [place]. tel: [phone] [facility], [address] [place] [address], [id number] , [place] tel: [phone] [facility] Spine Care (chief complaint) Segmental and somatic dysfunction of cervical regionCervicalgiaSegm ental and somatic dysfunction of lumbar regionOther intervertebral disc degeneration, lumbar region May-0 8 Eddie Lopez. [address], [place], [id number] , [place]. tel: [phone] [facility], [address], [place], [id number] , [place] tel: [phone] [facility] Spine Care (chief complaint) Segmental and somatic dysfunction of lumbar regionLow back painOther intervertebral disc degeneration, lumbar regionSegmental and somatic dysfunction of cervical region Jul-2 0- 8 Eddie Lopez. [address], [place], [id number] , [place]. tel: [phone] [facility], [address] [place] [address], [id number] , [place] tel: [phone] [facility] Spine Care (chief complaint) Segmental and somatic dysfunction of lumbar regionLow back painOther intervertebral disc degeneration, lumbar regionSegmental and somatic dysfunction of cervical region Jun-2 8 Eddie Lopez. [address], [place], [id number] , [place]. tel: [phone] [facility], [address], [place], [id number] , [place] tel: [phone] [facility] Spine Care (chief complaint) Segmental and somatic dysfunction of lumbar regionLow back painOther intervertebral disc degeneration, lumbar regionSegmental and somatic dysfunction of cervical region Jun-2 2- 8 Eddie Lopez. [address], [place], [id number] , [place]. tel: [phone] [facility], [address], [place], [id number] , [place] tel: [phone] [facility] Spine Care (chief complaint) Segmental and somatic dysfunction of lumbar regionLow back painOther intervertebral disc degeneration, lumbar regionSegmental and somatic dysfunction of cervical region Jun- 9- 8 Eddie Lopez. [address], [place], [id number] , [place]. tel: [phone] [facility], [address], [place], [id number] , [place] tel: [phone] [facility] Spine Care (chief complaint) Segmental and somatic dysfunction of lumbar regionLow back painOther intervertebral disc degeneration, lumbar regionSegmental and somatic dysfunction of cervical region Jun-1 5-201 8 Eddie Lopez. [address], [place], [id number] , [place]. tel: [phone] [facility], [address], [place], [id number] , [place] tel: [phone] [facility] Spine Care (chief complaint) Segmental and somatic dysfunction of lumbar regionLow back painOther intervertebral disc degeneration, lumbar regionSegmental and somatic dysfunction of cervical region Jun-1 2-201 8 Eddie Lopez. [address] [place] [address], [id number] , [place]. tel: [phone] [facility], [address], [place], [id number] , [place] tel: [phone] [facility] Spine Care (chief complaint) Segmental and somatic dysfunction of lumbar regionLow back painOther intervertebral disc degeneration, lumbar regionSegmental and somatic dysfunction of cervical region Mar-0 8-201 8 Eddie Lopez. [address], [place], [id number] , [place]. tel: [phone] [facility], [address], [place], [id number] , [place] tel: [phone] [facility] Spine Care (chief complaint) Segmental and somatic dysfunction of lumbar regionLow back painOther intervertebral disc degeneration, lumbar regionSegmental and somatic dysfunction of cervical region Jun-0 5-201 8 Eddie Lopez. [address] [place] [address], [id number] , [place]. tel: [phone] [facility], [address] [place] [address], [id number] , [place] tel: [phone] [facility] Spine Care (chief complaint) Segmental and somatic dysfunction of lumbar regionLow back painOther intervertebral disc degeneration, lumbar regionSegmental and somatic dysfunction of cervical region Mar-0 1- 8 Eddie Lopez. [address], [place], [id number] , [place]. tel: [phone] [facility], [address], [place], [id number] , [place] tel: [phone] [facility] Spine Care (chief complaint) Segmental and somatic dysfunction of lumbar regionLow back painOther intervertebral disc degeneration, lumbar regionSegmental and somatic dysfunction of cervical region Feb-2 6- 8 Eddie Lopez. [address], [place], [id number] , [place]. tel: [phone] [facility], [address] [place] [address], [id number] , [place] tel: [phone] [facility] Spine Care (chief complaint) Segmental and somatic dysfunction of lumbar regionLow back painOther intervertebral disc degeneration, lumbar regionSegmental and somatic dysfunction of cervical region Feb-2 2- 8 Eddie Lopez. [address], [place], [id number] , [place]. tel: [phone] [facility], [address], [place], [id number] , [place] tel: [phone] [facility] Spine Care (chief complaint) Segmental and somatic dysfunction of lumbar regionLow back painOther intervertebral disc degeneration, lumbar regionSegmental and somatic dysfunction of cervical region Feb-2 0- 8 Eddie Lopez. [address], [place], [id number] , [place]. tel: [phone] [facility], [address], [place], [id number] , [place] tel: [phone] [facility] No Information Yan- 7 Eber Ramos. [address], [place], [id number] , [place]. tel: [phone] [facility], [address] [place] [address], [id number] , [place] tel:[phone] [facility] No Information 7 Eber Ramos. [address], [place], [id number] , [place]. tel: [phone] OFFICE/OUTPA TIENT VISIT, [facility], [address], [place], [id number] , [place] tel: [phone] [facility] est care (chief complaint) medication refill (chief complaint) Type 2 diabetes mellitus with hyperglycemiaType 2 DM with diabetic neuropathyInsomnia 7 Eber Ramos. [address] [place] [address], [id number] , [place]. tel: [phone] Family History Family Member Type Diagnosis Age [...] depression Payers Payer name Insurance type Covered democrat ID Authoriza tion(s) No Information Social History [...] Lipid panel. Due on 017 due Goal Lipid panel. Due on due [...] establish care, she recently moved back to [place] from [place]. She is here taking care of her mother. She was seeing Sadie Fritz TUBE SKIVER in [place], states she just had blood work done beginning of June before moving here. A1C today 9.0. Patient states she does not currently have insurance since moving here from [place] and was unable to get her medications [...]
--- OUTSIDE RECORDS SUMMARY | 2025-01-19 16:00 | XMS_ITS | Encounter Summary ---
Author Organization [facility] Address [address] [place] [address] [place] [address] Care Team Providers Care Media Technician Name Role Phone Sandra Lewis DO Primary Care Provider [phone] Reason for Visit * Reason Comments cognitive decline Encounter Details Date Type Department Care Team (Late st Contact Info) Description 01/19/2025 4:00 PM EDT Office Visit JUMA Ness [facility] Neurology [address] [facility] [address] [place] [address] Luan Kincaid MD [address] [facility] [address] [place] [address] Weakness of both lower extremities (Primary Dx); Carpal tunnel syndrome, bilateral; Cognitive decline; Cervical paraspinal muscle spasm; B12 deficiency; Guyon syndrome, unspecified laterality Social History Tobacco Use Types Packs/Day Years Used Date Smoking Tobacco: Every Day Cigarettes 1 49.8 Started: 1975 Smokeless Tobacco: Current Comments:Smokes 11-20 [...] -> medical office). Imaging MR L-s (11/2023, [facility]) - HNP T12-L1 mild ... errol L5-S1 modB . . . . (11/2023, [facility]) - HNP T12-L1 mild ... canal sten L2-3 mod ... errol sten L2-3 modB L4-5-S1 modB US LE (12/2016, [facility]) - atherosclerosis, nl PVR. Testing [facility] (11/2024) - acute L L5-S1 + PN sev . . . . (11/2023) - acute L S1 (nEMG) + PN pattern signif worse . . . . (03/2017, [facility]) - PN pattern Labs - X54=480/15/116/>22.3, was 359/16.7H/328/>22.3 ... A1c=8.4, was 10.4(!) ,,, [...] - end of Mar pt adm to [facility] for gen weakness & slurred speech, [...] brain (03/2024) - never done during adm [facility] due to metal . . . . (10/2023, [facility]) - atrophy age-appropriate & ^T2/FLAIR CTA head (03/2024, [facility]) - no stenoses CTA neck(03/2024, [facility]) - < 20% B Testing (q.v.) [...] Motor - TA 5-L, unchanged: ___, orig: Client Liaison 4B ... APB 4R 4+L Sens - [...] COLPOSCOPY 09/2021 ESOPHAGEAL DILATION HYSTERECTOMY PARTIAL HYSTERECTOMY [place] VULVECTOMY SIMPLE PARTIAL 12/2018 TONSILLECTOMY VULVECTOMY 12/2017 [...] Take with meals. Continuous Blood Gluc Sensor (Bridgefyyle Brent 14 Day Sensor) [facility] apply 1 SENSOR as directed every 14 days use with DEVICE to MONIT... (REFER TO PRESCRIPTION NOTES). cyanocobalamin (Vitamin B-12) 2500 MCG tablet Docusate Sodium (DSS) 100 MG capsule Take 100 mg by mouth in the morning and 100 mg in the evening. donepezil (Aricept) 10 MG tablet 2 tabs QAM 60 tablet 5 Droplet Pen Desmet 32G X 4 MM [facility] use 1 PEN NEEDLE to inject MEDICATION [...] ? [address] ? [place], [place] [address] ? ? fax Neurology ? Clinical Neurophysiology ? Epilepsy ? Sleep Disorders ? Clinical Informatics documented in this encounter Plan of Treatment Upcoming Encounters Date Type Department Care Team (Late st Contact Info) Description 02/04/2025 12:30 PM EDT Office Visit JUMA NUNN [address] [place] [phone] Nereida Castro MD [address] [place] [address] 02/10/2025 1:00 PM EDT Office Visit [facility]N [address] [facility] [address] [place] [address] Nereida Castro MD [address] [facility] [address] [place] [address] 07/20/2025 4:00 PM EDT Office Visit [facility] [place] [facility] [address] [facility] [address] [place] [address] Luan Kincaid MD [address] [facility] [place] [phone] documented as of this encounter Visit Diagnoses Diagnosis Weakness of both lower extremities- Primary Carpal tunnel syndrome, bilateral Carpal tunnel syndrome Cognitive decline Cervical paraspinal muscle spasm Spasm of muscle B12 deficiency Guyon syndrome, unspecified laterality documented in this encounter Care Teams Media Technician Relationship Specialty Start Date End Date Sandra Lewis DO [address] [facility] [place] [phone] PCP - General Family Medicine 10/15/24 documented as of this encounter
--- OUTSIDE RECORDS SUMMARY | 2025-01-28 14:27 | XMS_ITS | Encounter Summary ---
Author Organization [facility] Address [address] [place] [address] Care Team Providers Care Roading Engineer Name Role Phone Sandra Lewis Primary Care Provider [phone] Sandra Lewsi DO Primary Care Provider [phone] Encounter Details Date Type Department Care Team (Late Contact Info) Description 10/30/2023 External Result Encounter [facility] External Department Unsolicited Luan Kincaid MD 5319 [facility] [address] [place] [address] Social History Tobacco Use Types Packs/Day Years [...] NUNN [address] [place] [address] Nereida Castro MD [address] [facility] [address] [place] [address] 02/10/2025 1:00 PM EDT Office Visit [facility] [address] [place] [address] Nereida Castro MD [address] [place] [address] 07/20/2025 4:00 PM EDT Office Visit [facility] [address] [place] [address] Luan Kincaid MD 9328 [facility] [place] [address] [place] [phone] documented as of this encounter Procedures Procedure [...] Segovia Jr., D.O.10/30/2023 3:15 PM Dictation Location: [place] [address] Transcribed By: PWS 10/30/23 1515 Dictated By: Edgar Segovia Jr, DO 10/30/23 1514 Signed By: <Electronically signed by Edgar Segovia Jr, DO in OV> 10/30/23 1515 Narrative 10/30/2023 3:17 PM EDT [facility] [place] [address] [place] [address] XRay Report Signed Patient: Kerry Gay MR#: [id number] 19 : 1955 Acct:[id number] Age/Sex: 67 / F ADM Date: 10/30/23 [...] Procedure Note Radiology, Radiologist, MD - 10/30/2023 [facility] Main [place] [address] [place] [address] XRay Report Signed Patient: Kerry Gay CMR#: [id number] 19 : 8Acct:[id number] Age/Sex: 67 / FADM Date: 10/30/23 Loc: [...] Segovia Jr., D.O.10/30/2023 3:15 PM Dictation Location: [place] [address] Transcribed By: [facility] 10/30/23 1515 Dictated By: Edgar Segovia Jr, DO 10/30/23 151 Signed By: <Electronically signed by Edgar Segovia Jr, inOV> 10/30/23 1515 us Luan Kincaid MD IMG XR PROCEDURES Final Result documented in this encounter Visit Diagnoses Not on filedocumented in this encounter Care Teams Roading Engineer Relationship Specialty Start Date End Date Sandra Lewis DO PCP - General Family Medicine 01/09/23 10/14/24 Sandra Lewis DO [address] [place] [address] PCP - General Family Medicine 10/15/24 documented as of this encounter
--- OUTSIDE RECORDS SUMMARY | 2025-01-28 14:27 | XMS_ITS | Clinical Summary ---
Author Organization [facility] Address [address] [place] [address] Phone Care Team Providers Care Plate Driller Name Role Phone Shantel Norton APRN-THERAPY TECH Primary Care Pro vider Allergies Active Allergy [...] Description 12/30/2024 1:40 PM EDT Office Visit [place] [address] [address] Roland Faust MD Typical atrial flutter (Multi) (Primary Dx); Nonischemic cardiomyopathy (Multi); Hypertension, unspecified type; Hypercholesteremia; Obesity (BMI 30-39.9); Current smoker Discharge Disposition: Home 12/30/2024 Travel 2024 Scanned Document [facility] [address] [place] [address] Scanning, Generic Provider 11/23/2024 Scanned Document [facility] [address] [place] [address] Scanning, Generic Provider from Last 3 Months [...] Description 08/17/2025 3:10 PM EDT Office Visit [facility] 703 [facility] [address] [place] [address] Roland Faust MD 703 [facility] [address], [address] [place] [address] Health Maintenance Due Date Last [...] DUAL COMPLETE MEDICAID DUAL COMPLETE Care Teams Plate Driller Relationship Specialty Start Date End Date Shantel Norton APRN-JAYSON [address] [place] [address] PCP - General Family Medicine 12/30/24
--- OUTSIDE RECORDS SUMMARY | 2025-01-28 14:27 | XMS_ITS | Encounter Summary ---
Author Organization [facility] Address [address] [facility] [place] [address] Care Team Providers Care Fbi Field Agent Name Role Phone Sandra Lewis Primary Care Provider [phone] Debbie Sandra BONNER Primary Care Provider [phone] Encounter Details Date Type Department Care Team (Late Contact Info) Description 12/13/2023 Orders Only [facility] [address] [place] [address] Luan Kincaid MD [address] [place], [place] [id number] Social History Tobacco Use Types Packs/Day Years [...] NUNN [address] [place] [address] Nereida Castro MD [address] [place] [address] 02/10/2025 1:00 PM EDT Office Visit [facility]OMJaqueline Adiel NUNN [address] [place] [address] Nereida Castro MD [address] [place], [place] [address] 07/20/2025 4:00 PM EDT Office Visit [facility] [address] [place] [address] Luan Kincaid MD [address] [address] documented as of this encounter Visit Diagnoses Not on filedocumented in this encounter Care Teams Fbi Field Agent Relationship Specialty Start Date End Date Sandra Lewis DO PCP - General Family Medicine 01/09/23 10/14/24 Sandra Lewis DO 2522 [facility] [place] [address] PCP - General Family Medicine 10/15/24 documented as of this encounter
--- OUTSIDE RECORDS SUMMARY | 2025-01-28 14:28 | XMS_ITS | Encounter Summary ---
Author Organization [facility] Address [address] [place] [address] Phone Care Team Providers Care Senior Benefits Analyst Name Role Phone Sandra Lewis DO Primary Care Provider [phone] Shantel Norton RN ICU-PAIN MANAGEMENT NURSE PRACTITIONER Primary Care Pro vider Encounter Details Date Type Department Care Team (Late Contact Info) Description 2023 Scanned Document [facility] [address] [place] [address] Scanning, Generic Provider Social History Tobacco Use [...] Description 08/17/2025 3:10 PM EDT Office Visit [place] [address] [facility] [address] [place] [address] Roland Faust MD 703 [facility] 2, [address] [place] [address] documented as of this encounter Visit Diagnoses Not on filedocumented in this encounter Additional Health Concerns Assessment Noted Time A fall risk assessment has been complete d for the patient 11/13/2023 1:54 PM EDT documented as of this encounter Care Teams Senior Benefits Analyst Relationship Specialty Start Date End Date Sandra Lewis DO [address] [place] [address] PCP - General Family Medicine 09/25/23 12/29/24 Shantel Norton APRN-PAIN MANAGEMENT NURSE PRACTITIONER [address] [place] [address] PCP - General Family Medicine 12/30/24 documented as of this encounter
--- OUTSIDE RECORDS SUMMARY | 2025-01-28 14:28 | XMS_ITS | Encounter Summary ---
Author Organization [facility] Address [address] [place] [address] Phone Care Team Providers Care Power Barker Name Role Phone Sandra Lewis DO Primary Care Provider [phone] Shantel Norton ALUMINUM SHINGLE ROOFER-CRUDE OIL DRIVER Primary Care Pro vider Encounter Details Date Type Department Care Team (Late st Contact Info) Description 2024 Scanned Document [facility] [address] [place] [address] Scanning, Generic Provider Social History Tobacco Use [...] Description 08/17/2025 3:10 PM EDT Office Visit [place] [address] [facility] [address] [place] [address] Roland Faust MD 703 [facility] 2, [address] [place] [address] documented as of this encounter Visit Diagnoses Not on filedocumented in this encounter Additional Health Concerns Assessment Noted Time A fall risk assessment has been complete d for the patient 06/26/2024 9:48 AM EST documented as of this encounter Care Teams Power Barker Relationship Specialty Start Date End Date Sandra Lewis DO 2520 [facility] [place] [address] PCP - General Family Medicine 09/25/23 12/29/24 Shantel Norton, NITZA-CRUDE OIL DRIVER 1255 [facility] [place] [address] PCP - General Family Medicine 12/30/24 documented as of this encounter
--- OUTSIDE RECORDS SUMMARY | 2025-01-28 14:28 | XMS_ITS | Encounter Summary ---
Author Organization [facility] Address [address] [place] [address] Care Team Providers Care Soc Analyst Name Role Phone Sandra Lewis DO Primary Care Provider [phone] Encounter Details Date Type Department Care Team (Late st Contact Info) Description 01/26/2025 Telephone [facility] [place] [facility] [address] [facility] [address] [place] [address] Nereida Castro MD [address] [facility] [address] [place] [address] Social History Tobacco Use Types Packs/Day Years [...] can feel it growing. Call daughter back [phone] documented in this encounter Plan of Treatment Upcoming Encounters Date Type Department Care Team (Late st Contact Info) Description 02/04/2025 12:30 PM EDT Office Visit [facility] [place] [facility] [address] [place] [address] Nereida Castro MD [address] [place] [address] 02/10/2025 1:00 PM EDT Office Visit [facility] [place] [facility] [address] [place] [address] Nereida Castro MD [address] [place] [address] 07/20/2025 4:00 PM EDT Office Visit [facility] [place] [facility] [address] [place] [address] Luan Kincaid MD 9894 [facility] [address] [address] documented as of this encounter Visit Diagnoses Not on filedocumented in this encounter Care Teams Soc Analyst Relationship Specialty Start Date End Date Sandra Lewis DO 2519 [facility] [place] [address] PCP - General Family Medicine 10/15/24 documented as of this encounter
--- OUTSIDE RECORDS SUMMARY | 2025-01-28 14:28 | XMS_ITS | Encounter Summary ---
Author Organization [facility] Address [address] [place] [address] Phone Care Team Providers Care Soap Boiler Name Role Phone Sandra Lewis DO Primary Care Provider [phone] Shantel Norton RN CHEMICAL DEPENDENCY-HANDLE MACHINE OPERATOR Primary Care Pro vider Encounter Details Date Type Department Care Team (Late Contact Info) Description 01/06/2024 Scanned Document [facility] [address] [place] [address] Scanning, Generic Provider Social History Tobacco Use [...] Description 08/17/2025 3:10 PM EDT Office Visit [facility] 703 [facility] [address] [place] [address] Roland Faust MD 703 [facility] 2, [address] [place] [address] Scheduled Orders Name Type Priority Associated Diagnoses Orde r Schedule Ultrasound- OnBase Scan Imaging O rdered: 01/06/2024 documented as of this encounter Visit Diagnoses Not on filedocumented in this encounter Additional Health Concerns Assessment Noted Time A fall risk assessment has been complete d for the patient 12/16/2023 10:41 AM EDT documented as of this encounter Care Teams Soap Boiler Relationship Specialty Start Date End Date Sandra Lewis DO [address] [place] [address] PCP - General Family Medicine 09/25/23 12/29/24 Shantel Norton APRN-HANDLE MACHINE OPERATOR [address] [place] [address] PCP - General Family Medicine 12/30/24 documented as of this encounter
--- OUTSIDE RECORDS SUMMARY | 2025-01-28 14:28 | XMS_ITS | Encounter Summary ---
Author Organization [facility] Address [address] [place] [address] Phone Care Team Providers Care Bad Work Gatherer Name Role Phone Sandra Lewis DO Primary Care Provider [phone] Shantel Norton LANCE CREWMEMBER/MLRS SERGEANT-SENIOR RADIATION PROTECTION TECHNICIAN Primary Care Pro vider Encounter Details Date Type Department Care Team (Late st Contact Info) Description 11/23/2024 Scanned Document [facility] [address] [place] [address] Scanning, Generic Provider Social History Tobacco Use [...] Description 08/17/2025 3:10 PM EDT Office Visit [place] 618913 [facility] [address] [place] [address] Roland Faust MD 703 [facility] 2, [address] [place] [address] documented as of this encounter Visit Diagnoses Not on filedocumented in this encounter Additional Health Concerns Assessment Noted Time A fall risk assessment has been complete d for the patient 06/26/2024 9:48 AM EST documented as of this encounter Care Teams Bad Work Gatherer Relationship Specialty Start Date End Date Sandra Lewis DO 2520 [facility] [place] [address] PCP - General Family Medicine 09/25/23 12/29/24 Shantel Norton, NITZA-SENIOR RADIATION PROTECTION TECHNICIAN 1255 [facility] [place] [address] PCP - General Family Medicine 12/30/24 documented as of this encounter
--- OUTSIDE RECORDS SUMMARY | 2025-01-28 14:28 | XMS_ITS | Encounter Summary ---
Author Organization [facility] Address [address] [place] [address] Care Team Providers Care Document Review Attorney Name Role Phone Sandra Lewis DO Primary Care Provider [phone] Encounter Details Date Type Department Care Team (Late st Contact Info) Description 01/19/2025 Bamboo flowsheet [facility] [address] [facility] [place] [address] Luan Kincaid MD [address] [facility] [address] [place] [phone] Social History Tobacco Use Types Packs/Day Years [...] NUNN [address] [place] [address] Nereida Castro MD [address] [facility] [address] [place] [address] 02/10/2025 1:00 PM EDT Office Visit NOMJaqueline [place] OBELVIRAN [address] [facility] 210 [place] [address] Nereida Castro MD [address] [facility] [address] [place] [address] 07/20/2025 4:00 PM EDT Office Visit [facility]aqueline [facility] [address] [facility] [address] [place] [address] Luan Kincaid MD 1554 [facility] [address] [place], [place] [address] documented as of this encounter Visit Diagnoses Not on filedocumented in this encounter Care Teams Document Review Attorney Relationship Specialty Start Date End Date Sandra Lewis DO 2520 [facility] [place] [address] PCP - General Family Medicine 10/15/24 documented as of this encounter
--- OUTSIDE RECORDS SUMMARY | 2025-01-28 14:28 | XMS_ITS | Encounter Summary ---
Author Organization [facility] Address [address] [place] [address] Phone Care Team Providers Care Overhead Crane Inspector Name Role Phone Sandra Lewis DO Primary Care Provider [phone] Shantel Norton APRN-SPARMAKER Primary Care Pro vider Encounter Details Date Type Department Care Team (Late st Contact Info) Description 12/02/2023 Scanned Document [place] [address] [place] [address] Scanning, Generic Provider Social History Tobacco Use [...] Description 08/17/2025 3:10 PM EDT Office Visit [facility] 7[address] [facility] [address] [place] [address] Roland Faust MD 703 [facility] 2, [address] [place] [address] documented as of this encounter Visit Diagnoses Not on filedocumented in this encounter Additional Health Concerns Assessment Noted Time A fall risk assessment has been complete d for the patient 11/13/2023 1:54 PM EDT documented as of this encounter Care Teams Overhead Crane Inspector Relationship Specialty Start Date End Date Sandra Lewis DO [address] [facility] [place] [address] PCP - General Family Medicine 09/25/23 12/29/24 Shantel Norton APRN-SPARMAKER 1255 [facility] [place] [address] PCP - General Family Medicine 12/30/24 documented as of this encounter
--- OUTSIDE RECORDS SUMMARY | 2025-01-28 14:28 | XMS_ITS | Encounter Summary ---
Author Organization [facility] Address [address] [place] [address] Phone Care Team Providers Care High School Hvac R Instructor Name Role Phone Sandra Lewis DO Primary Care Provider [phone] Shantel Norton MORTGAGE CLOSER-CAR UNLOADER HELPER Primary Care Pro vider Encounter Details Date Type Department Care Team (Late st Contact Info) Description 04/28/2024 Scanned Document [facility] [address] [place] [address] Scanning, Generic Provider Social History Tobacco Use [...] 08/17/2025 3:10 PM EDT Office Visit [facility] 703 [facility] 250 [place] [address] Roland Faust MD 703 [facility] 2, [address] [place] [address] documented as of this encounter [...] documented as of this encounter Care Teams High School Hvac R Instructor Relationship Specialty Start Date End Date Sandra Lewis DO 2520 [place] [address] PCP - General Family Medicine 09/25/23 12/29/24 Shantel Norton APRN-CAR UNLOADER HELPER 1255 [facility] [place] [address] PCP - General Family Medicine 12/30/24 documented as of this encounter
--- OUTSIDE RECORDS SUMMARY | 2025-01-28 14:28 | XMS_ITS | Encounter Summary ---
Author Organization [facility] Address [address] [place] [address] Phone Care Team Providers Care Dry Wall Sprayer Name Role Phone Sandra Lewis DO Primary Care Provider [phone] Shantel Norton MACHINE TRIMMER-RETAIL LOAN OFFICER Primary Care Pro vider Encounter Details Date Type Department Care Team (Late st Contact Info) Description 04/30/2024 Scanned Document [facility] [address] [place] [address] Scanning, Generic Provider Social History Tobacco Use [...] Description 08/17/2025 3:10 PM EDT Office Visit [facility] 703 [facility] 250 [place] [address] Roland Faust MD 703 [facility] 2, [address] [place] [address] documented as of this encounter Visit Diagnoses Not on filedocumented in this encounter Additional Health Concerns Assessment Noted Time A fall risk assessment has been complete d for the patient 12/16/2023 10:41 AM EDT documented as of this encounter Care Teams Dry Wall Sprayer Relationship Specialty Start Date End Date Sandra Lewis DO 2520 [facility] [place] [address] PCP - General Family Medicine 09/25/23 12/29/24 Shantel Norton, NITZA-RETAIL LOAN OFFICER 1255 [facility] [place] [address] PCP - General Family Medicine 12/30/24 documented as of this encounter
--- OUTSIDE RECORDS SUMMARY | 2025-01-28 14:28 | XMS_ITS | Encounter Summary ---
Author Organization [facility] Address [address] [place] [address] Phone Care Team Providers Care Manager Art Name Role Phone Sandra Lewis DO Primary Care Provider [phone] Shantel Norton AIR CONDITIONING SHEET METAL INSTALLER-INSIDE STEWARD/STEWARDESS Primary Care Pro vider Encounter Details Date Type Department Care Team (Late st Contact Info) Description 11/10/2023 Scanned Document [facility] [address] [place] [address] Scanning, Generic Provider Social History Tobacco Use [...] Description 08/17/2025 3:10 PM EDT Office Visit [facility] 703 [facility] [address] [place] [address] Roland Faust MD 703 [facility] [address], [address] [place] [address] documented as of this encounter Procedures Procedure [...] as of this encounter Care Teams Manager Art Relationship Specialty Start Date End Date Sandra Lewis DO 2520 [facility] [place] [address] PCP - General Family Medicine 09/25/23 12/29/24 Shantel Norton APRN-INSIDE STEWARD/STEWARDESS 1255 [place] [address] PCP - General Family Medicine 12/30/24 documented as of this encounter
--- OUTSIDE RECORDS SUMMARY | 2025-01-28 14:28 | XMS_ITS | Encounter Summary ---
Author Organization [facility] Address [address] [place] [address] Phone Care Team Providers Care Claims Examiner Name Role Phone Sandra Lewis DO Primary Care Provider [phone] Shantel Norton SUPERINTENDENT SERVICE-FIRE SERVICES PLUMBER Primary Care Pro vider Encounter Details Date Type Department Care Team (Late st Contact Info) Description 09/14/2023 Scanned Document [facility] [address] [place] [address] Scanning, Generic Provider Social History Tobacco Use [...] Description 08/17/2025 3:10 PM EDT Office Visit [facility] 703 [facility] 250 [place] [address] Roland Faust MD 703 [facility] 2, [address] [place] [address] documented as of this encounter Visit Diagnoses Not on filedocumented in this encounter Care Teams Claims Examiner Relationship Specialty Start Date End Date Sandra Lewis DO [address] [facility] [place] [address] PCP - General Family Medicine 09/25/23 12/29/24 Shantel Norton APRN-FIRE SERVICES PLUMBER [address] [place] [address] PCP - General Family Medicine 12/30/24 documented as of this encounter
--- OUTSIDE RECORDS SUMMARY | 2025-01-28 14:28 | XMS_ITS | Patient Health Record ---
Author Organization [facility] Address [address] [place] [address] Care Team Providers Care Business Account Leader Name Role Phone Dr. Edgar Garcia Primary Care Provider Reason For Referral No Information Plan Of Treatment No Information Insurance Providers Payer Name Payer Address Payer Phone Subscriber Number Group Number Insured Name Patient Relationship to Insured Coverage Start Date Coverage End Date MEDICARE CGS [address] [place] [address] [phone] [id number] PRITI TAYE Self - patient is the insured 1 MEDICAID [facility] TO [facility] [address] [place] [address] [phone] [id number] TAYE MARCOS Self - patient is the insured 1 DENTAL MEDICAID [place] [address] [place] [address] [id number] TAYE MARCOS Self - patient is the insured 1
--- OUTSIDE RECORDS SUMMARY | 2025-01-28 14:28 | XMS_ITS | Encounter Summary ---
Author Organization [facility] Address [address] [place] [address] Phone Care Team Providers Care Field Nurse Name Role Phone Sandra Lewis DO Primary Care Provider [phone] Shantel Norton MICROFILM MOUNTER-BEDSPREAD CUTTER HAND Primary Care Pro vider Encounter Details Date Type Department Care Team (Late st Contact Info) Description 09/12/2023 Scanned Document [facility] [address] [place] [address] Scanning, Generic Provider Social History Tobacco Use [...] Description 08/17/2025 3:10 PM EDT Office Visit [facility] 703 [facility] [address] [place] [address] Roland Faust MD 703 [facility] 2, [address] [place] [address] documented as of this encounter [...] on filedocumented in this encounter Care Teams Field Nurse Relationship Specialty Start Date End Date Sandra Lewis DO 2520 [facility] [place] [address] PCP - General Family Medicine 09/25/23 12/29/24 Shantel Norton APRN-BEDSPREAD CUTTER HAND 1255 [place] [address] PCP - General Family Medicine 12/30/24 documented as of this encounter
--- OUTSIDE RECORDS SUMMARY | 2025-01-28 14:28 | XMS_ITS | Encounter Summary ---
Author Organization [facility] Address [address] [place] [address] Phone Care Team Providers Care Prosthetic Lab Technician Name Role Phone Sandra Lewis DO Primary Care Provider [phone] Shantel Norton MINIATURE SET CONSTRUCTOR-TEST ANALYST Primary Care Pro vider Encounter Details Date Type Department Care Team (Late st Contact Info) Description 11/12/2023 Scanned Document [facility] [address] [place] [phone] Scanning, Generic Provider Social History Tobacco Use [...] 3:10 PM EDT Office Visit [facility] 703 [facility] [address] [place] [phone] Roland Faust MD [facility] [address] [place] [address] documented as of this encounter Visit Diagnoses Not on filedocumented in this encounter Additional Health Concerns Assessment Noted Time A fall risk assessment has been complete d for the patient 10/07/2023 9:51 AM EDT documented as of this encounter Care Teams Prosthetic Lab Technician Relationship Specialty Start Date End Date Sandra Lewis DO 25[address] [facility] [place] [address] PCP - General Family Medicine 09/25/23 12/29/24 Shantel Norton APRN-TEST ANALYST 1255 [facility] [place] [address] PCP - General Family Medicine 12/30/24 documented as of this encounter
--- OUTSIDE RECORDS SUMMARY | 2025-01-28 14:28 | XMS_ITS | Encounter Summary ---
Author Organization [facility] Address [address] [place] [address] Phone Care Team Providers Care Artificial Breeding Distributor Name Role Phone Sandra Lewis DO Primary Care Provider [phone] Shantel Norton AZURE DEVELOPER-PAINTING INSTRUCTOR Primary Care Pro vider Encounter Details Date Type Department Care Team (Late st Contact Info) Description 11/11/2023 Scanned Document [facility] [address] [place] [phone] Scanning, Generic Provider Social History Tobacco Use [...] Description 08/17/2025 3:10 PM EDT Office Visit [facility] 703 [facility] [address] [place] [phone] Roland Faust MD 703 [facility] [address] [place] [address] documented as of this encounter Visit Diagnoses Not on filedocumented in this encounter Additional Health Concerns Assessment Noted Time A fall risk assessment has been complete d for the patient 10/07/2023 9:51 AM EDT documented as of this encounter Care Teams Artificial Breeding Distributor Relationship Specialty Start Date End Date Sandra Lewis DO [address] [facility] [place] [address] PCP - General Family Medicine 09/25/23 12/29/24 Shantel Norton APRN-PAINTING INSTRUCTOR 1255 [facility] [place] [address] PCP - General Family Medicine 12/30/24 documented as of this encounter
--- OUTSIDE RECORDS SUMMARY | 2025-01-28 14:28 | XMS_ITS | Encounter Summary ---
Author Organization [facility] Address [address] [place] [address] Phone Care Team Providers Care Medical Associate Name Role Phone Sandra Lewis DO Primary Care Provider [phone] Shantel Norton SENIOR MARKETING ANALYST-CORPORATE EVENTS DIRECTOR Primary Care Pro vider Encounter Details Date Type Department Care Team (Late st Contact Info) Description 11/09/2023 Scanned Document [facility] [address] [place] [address] Scanning, Generic Provider Social History Tobacco Use [...] Description 08/17/2025 3:10 PM EDT Office Visit [place] [id number] [facility] [address] [place] [address] Roland Faust MD [address] [employer] [address], [address] [place] [address] documented as of this encounter Visit Diagnoses Not on filedocumented in this encounter Additional Health Concerns Assessment Noted Time A fall risk assessment has been complete d for the patient 10/07/2023 9:51 AM EDT documented as of this encounter Care Teams Medical Associate Relationship Specialty Start Date End Date Sandra Lewis DO 2520 [facility] [place] [address] PCP - General Family Medicine 09/25/23 12/29/24 Shantel Norton, NITZA-CORPORATE EVENTS DIRECTOR 1255 [facility] [place] [address] PCP - General Family Medicine 12/30/24 documented as of this encounter
--- OUTSIDE RECORDS SUMMARY | 2025-01-28 14:28 | XMS_ITS | Encounter Summary ---
Author Organization [facility] Address [address] [place] [address] Care Team Providers Care Physics Department Chair Name Role Phone Sandra Lewis DO Primary Care Provider [phone] Encounter Details Date Type Department Care Team [...] NUNN [address] [place] [address] Nereida Castro MD [address] [place] [address] 02/10/2025 1:00 PM EDT Office Visit [facility] [address] [place] [phone] Nereida Castro MD [address] [place] [address] 07/20/2025 4:00 PM EDT Office Visit [facility] [place] [facility] [address] [facility] [place] [phone] Codi, Luan Snyder MD [address] [facility] [address] [place] [address] documented as of this encounter Visit Diagnoses Not on filedocumented in this encounter Care Teams Physics Department Chair Relationship Specialty Start Date End Date Sandra Lewis DO 2520 [facility] [place] [address] PCP - General Family Medicine 10/15/24 documented as of this encounter
--- OUTSIDE RECORDS SUMMARY | 2025-01-28 14:28 | XMS_ITS | Clinical Summary ---
Author Organization [facility] Address [address] [place] [address] Care Team Providers Care Social Worker Delinquency Prevention Name Role Phone Darrell Weinstein Primary Care Provider [phone] Nereida Castro MD Unavailable [phone] Allergies Active Allergy Reactions Criticality Noted [...] Date Smoking Tobacco: Every Day Cigarettes 1 50.8 Started: 1972 Smokeless Tobacco: Never Alcohol Use Standard Drinks/Week Comments Not Currently 0 (1 standard drink = 0.6 oz pur e alcohol) Area Deprivation Index Answer Date Steffen rded National Score (1-100), lower number is lower ri sk Not on file 04/03/2020 State Score (1-10), lower number is lower risk N ot on file 04/03/2020 Data from: https://www.neighborhoodatlas.medicine.[facility]/. Last address used for [...] COMP METABOLIC PANEL (12/17/2018 3:05 PM EDT) [facility] Protein, Total 7.6 6.3 - 8.0 g/dL 12/18/2018 3:35 AM [facility] Albumin 4.2 3.9 - 4.9 g/dL 12/18/2018 3:35 AM [facility] Calcium 10.6(H) 8.5 - 10.2 mg/dL 12/18/2018 3:35 AM [facility] Bilirubin, Total 0.3 0.2 - 1.3 mg/dL 12/18/2018 3:35 AM [facility] Alkaline Phosphatase 88 34 - 123 U/L 12/18/2018 3:35 AM [facility] AST 28 13 - 35 U/L 12/18/2018 3:35 AM [facility] Glucose 89 74 - 99 mg/dL 12/18/2018 3:35 AM [facility] Comment: The [place] Diabetes Association (ADA) provides guidance for cutoff [...] Standards of Medical Care in Diabetes 2016, [place] Diabetes Association. Diabetes Care. 2016.39(Suppl 1). BUN 10 7 - 21 mg/dL 12/18/2018 3:35 AM [facility] Creatinine 0.73 0.58 - 0.96 mg/dL 12/18/2018 3:35 AM [facility] Sodium 138 136 - 144 mmol/L 12/18/2018 3:35 AM [facility] Potassium 4.4 3.7 - 5.1 mmol/L 12/18/2018 3:35 AM [facility] Chloride 100 97 - 105 mmol/L 12/18/2018 3:[address] [facility] CO2 21(L) 22 - 30 mmol/L 12/18/2018 3:35 AM EDT [facility] Anion Gap 17 9 - 18 mmol/L 12/18/2018 3:35 AM EDT [facility] ALT 22 7 - 38 U/L 12/18/2018 3:35 AM EDT [facility] eGFR- >60 12/18/2018 3:35 AM EDT [facility] eGFR-All Other Races >60 . 12/18/2018 3:35 AM EDT [facility] Comment: eGFR (Estimated GFR) Units of [...] EDT 12/17/2018 3:07 PM EDT Shantel Celestin APRN.[facility] Final R esult [facility] [address] [place] [address] [facility] [address] [place] [address] from Last 3 Months or Most Recently Relevant to Health Maintenance Insurance [facility] MEDICARE ADVANTAGE HMO Care Teams Social Worker Delinquency Prevention Relationship Specialty Start Date End Date Darrell Weinstein 1610 [facility] [address] [place] [address] PCP - General Family Medicine 11/06/18 Nereida Castro MD 1610 [facility] [address] [place] [address] Referring Obstetrics 11/06/18
--- OUTSIDE RECORDS SUMMARY | 2025-01-28 14:28 | XMS_ITS | Encounter Summary ---
Author Organization [facility] Address [address] [place] [address] Care Team Providers Care Video Presentation Operator Name Role Phone Darrell Weinstein Primary Care Provider [phone] Nereida Castro MD Unavailable [phone] Source Comments In the event this information is protected by the Federal Confidentiality of Alcohol and Drug AbusePatient Records regulations: The Federal rules restrict any use of the information to criminally investigate or prosecute any alcohol or drug abuse patient.[facility] Encounter Details Date Type Department Care Team (Late st Contact Info) Description 2022 [place] [address] Provider, f Medicare Coverage of Physical Exams [...] N ot on file 04/03/2020 Data from: https://www.neighborhoodatlas.medicine.[facility].edu/. Last address used for calculation [...] on filedocumented in this encounter Care Teams Video Presentation Operator Relationship Specialty Start Date End Date Darrell Weinstein 1610 [facility] [address] [place] [address] PCP - General Family Medicine 11/06/18 Nereida Castro MD 1610 [facility] [address] [place] [address] Referring Obstetrics 11/06/18 documented as of this encounter
--- OUTSIDE RECORDS SUMMARY | 2025-01-28 14:28 | XMS_ITS | Encounter Summary ---
Author Organization [facility] Address [address] [place] [address] Phone Care Team Providers Care Electron Gun Inspector Name Role Phone Sandra Lewis DO Primary Care Provider [phone] Shantel Norton BALLING HEAD TENDER-ELECTROMYOGRAPHIC TECHNICIAN Primary Care Pro vider Encounter Details Date Type Department Care Team (Late Contact Info) Description 07/22/2024 Scanned Document [facility] [address] [place] [phone] Scanning, Generic Provider Social History Tobacco Use [...] Description 08/17/2025 3:10 PM EDT Office Visit [facility] [address] [facility] [address] [place] [address] Roland Faust MD 703 [facility] 2, [address] [place] [address] Scheduled Orders Name Type Priority Associated Diagnoses Orde r Schedule Ultrasound- OnBase Scan Imaging O rdered: 07/22/2024 documented as of this encounter Visit Diagnoses Not on filedocumented in this encounter Additional Health Concerns Assessment Noted Time A fall risk assessment has been complete d for the patient 06/26/2024 9:48 AM EST documented as of this encounter Care Teams Electron Gun Inspector Relationship Specialty Start Date End Date Sandra Lewis DO 2520 [place] [address] PCP - General Family Medicine 09/25/23 12/29/24 Shantel Norton APRN-ELECTROMYOGRAPHIC TECHNICIAN [address] [place] [address] PCP - General Family Medicine 12/30/24 documented as of this encounter
--- OUTSIDE RECORDS SUMMARY | 2025-01-28 14:28 | XMS_ITS | Encounter Summary ---
Author Organization [facility] Address [address] [place] [address] Phone Care Team Providers Care Transport Rn Name Role Phone Sandra Lewis DO Primary Care Provider [phone] Shantel Norton ALIGNING CHECKER-HVAC CONTROLS TECHNICIAN Primary Care Pro vider Encounter Details Date Type Department Care Team (Late st Contact Info) Description 09/13/2023 Scanned Document [facility] [address] [place] [address] Scanning, Generic Provider Social History Tobacco Use [...] Office Visit [facility] 703 [facility] 250 [place] [address] Roland Faust MD 703 [facility] 2, [address] [place] [address] documented as of this encounter Visit Diagnoses Not on filedocumented in this encounter Care Teams Transport Rn Relationship Specialty Start Date End Date Sandra Lewis DO [address] [facility] [place] [address] PCP - General Family Medicine 09/25/23 12/29/24 Shantel Norton APRN-HVAC CONTROLS TECHNICIAN [address] [place] [address] PCP - General Family Medicine 12/30/24 documented as of this encounter
--- OUTSIDE RECORDS SUMMARY | 2025-01-28 14:28 | XMS_ITS | Clinical Summary ---
Author Organization [facility] Address [address] [place] [address] Care Team Providers Care Pie Maker Machine Name Role Phone Sandra Lewis DO Primary Care Provider [phone] Allergies Active Allergy Reactions Criticality Noted Date Comments Sulfa Antibiotics GI intolerance,Unknown 2018 Medications Continuous Blood Gluc Sensor ([employer]Style Brent 14 Day Sensor) [facility] apply 1 SENSOR as directed every 14 days use with DEVICE to MONIT... (REFER TO PRESCRIPTION NOTES). 3 Active Toujeo SoloStar 300 UNIT/ML injection inject 20 units subcutaneously as directed 3 Active Droplet Pen [place] 32G X 4 MM [facility] use 1 PEN NEEDLE to inject MEDICATION [...] (07/21/2024 3:08 PM EDT): (Continue current regimen.) [facility] records - neuro consults, EEG, MR, carotids, echo, discharge summary. Assessment & Plan (04/07/2024 2:16 PM EST): Pt to retry donepezil 15 qam (or 10/5). Assessment & Plan (02/25/2024 2:59 PM EDT): Add memantine 10 -> bid. Then add donepezil 10, titrate. Handout. Get MR images transferred to [facility] PACS for my review. Guyon [...] neuropathy, worsening. Get full set of labs (Count Includes [facility]). We have some but not all [...] 01/26/2025 Telephone [facility] [place] [facility] [address] [facility] [address] [place] [address] Nereida Castro MD 01/19/2025 4:00 PM EDT Office Visit [facility] [place] [facility] [address] [facility] [address] [place] [address] Luan Kincaid MD Weakness of both lower extremities (Primary Dx); Carpal tunnel syndrome, bilateral; Cognitive decline; Cervical paraspinal muscle spasm; B12 deficiency; Guyon syndrome, unspecified laterality 01/19/2025 Bamboo flowsheet [facility] [address] [place] [address] Luan Kincaid MD 01/19/2025 Travel 12/31/2024 4:00 PM EDT Ancillary Procedure [facility] [address] [facility] [address] [place] [address] Lumbosacral radiculopathy at L5; Weakness of both lower extremities; Leg pain, bilateral 12/31/2024 Travel 12/18/2024 1:15 PM EDT Procedure Visit [facility] [place] [facility] [address] [facility] [address] [place] [address] Luan Kincaid MD Numbness (Primary Dx); Paresthesias; Pain in both lower extremities; Lumbosacral radiculopathy at L5 12/18/2024 Orders Only [facility] [address] [facility] [address] [place] [address] Luan Kincaid MD Lumbosacral radiculopathy at L5; Weakness of both lower extremities; Leg pain, bilateral 12/18/2024 Travel 12/11/2024 1:15 PM EDT Procedure Visit [facility] [place] [facility] [address] [place] [address] Luan Kincaid MD Hand weakness (Primary Dx); Carpal tunnel syndrome, bilateral 12/11/2024 Travel 11/30/2024 Telephone [facility] [place] [facility] [address] [place] [address] Maureen Fritz DPM Error (VOID this visit) 11/23/2024 2:45 PM EDT Office Visit [facility] [place] [facility] [address] [place] [address] Maureen Fritz DPM Ulcer of right foot with fat layer exposed (HCC) (Primary Dx); 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); Abscess of right foot; At increased risk for emergency hospital admission 11/23/2024 Bamboo flowsheet [facility] [address] [place] [address] Maureen Fritz DPM 11/23/2024 Travel 11/20/2024 Telephone [facility] [address] [place] [address] Beatrice Boyd MA HH Orders Clarification 11/18/2024 Telephone [facility] [place] [facility] [address] [place] [address] Beatrice Boyd MA HH Orders 11/18/2024 Telephone [facility] [address] [place] [address] Maureen Fritz DPM 11/16/2024 4:00 PM EDT Office Visit [facility] [place] [facility] [address] [place] [address] Maureen Fritz DPM Ulcer of right foot with fat layer exposed (HCC) (Primary Dx); 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); Cellulitis of right foot; Deformity of toe, right 11/16/2024 External Result Encounter [facility] External Department Unsolicited Maureen Fritz DPM 11/16/2024 Travel 11/16/2024 Telephone [facility] [address] [place] [phone] Shantel Parsons MA 10/31/2024 Refill [facility] [address] [place] [address] Luan Kincaid MD Neurogenic pain from [...] 1 49.8 Started: 1973 Smokeless Tobacco: Current Tobacco Cessation:Ready [...] [address] [place] [address] 02/10/2025 1:00 PM EDT Office Visit [facility] [address] [place] [address] Nereida Castro MD [address] [place] [address] 07/20/2025 4:00 PM EDT Office Visit [facility] [address] [place] [address] Luan Kincaid MD [address] [address] Procedures Procedure Name Priority Date/Time Associated Diagnosis Comments MR LUMBAR SPINE WO CONTRAST Routine 12/31/2024 4:24 PM EDT Lumbosacral radiculopathy at L5 Weakness of both lower extremities Leg pain, bilateral XR FOOT 3+ VIEWS RIGHT Routine 11/16/2024 5:13 PM EDT Ulcer of right foot with fat layer exposed (HCC) AEROBIC FAMILAI CHARGE ([id number]) Routine 11/16/2024 4:48 PM EDT [...] EDT) AZITHROMYCIN <2(S) 11/18/2024 9:54 AM EDT [facility] CEFTAROLINE <0.5(S) 11/18/2024 9:54 AM EDT [facility] CIPROFLOXACIN <1(S) 11/18/2024 9:54 AM EDT [facility] CLINDAMYCIN 0.5(S) 11/18/2024 9:54 AM EDT [facility] DAPTOMYCIN 1(S) 11/18/2024 9:54 AM EDT [facility] LEVOFLOXACIN <1(S) 11/18/2024 9:54 AM EDT [facility] LINEZOLID 2(S) 11/18/2024 9:54 AM EDT [facility] OXACILLIN <0.25(S) 11/18/2024 9:54 AM EDT [facility] PENICILLIN >2(R) 11/18/2024 9:54 AM EDT [facility] TETRACYCLINE <4(S) 11/18/2024 9:54 AM EDT [facility] TRIMETHOPRIM/SULF AMETHOXAZOLE <0.5/9.5( S) 11/18/2024 9:54 AM EDT [facility] VANCOMYCIN 1(S) 11/18/2024 9:54 AM EDT [facility] Other Structure of right foot / Unknown 11/16/2024 4:48 PM EDT 11/16/2024 5:30 PM EDT Comment:Ulcer Maureen Fritz [facility] Final Resu lt COUNTS INCLUDE 234 BEDS AT [facility] [address] [place] [address], [facility] [address] [place] [address] * (ABNORMAL) AEROBIC FAMILIA CHARGE ([id number]) (11/16/2024 4:48 PM EDT) AMIKACIN <16(S) 11/18/2024 9:54 AM EDT [facility] AMOXACILLIN/K CLAVULANATE <8/4(S) 11/18/2024 9:54 AM EDT [facility] AMPICILLIN/SULBAC ARREDONDO 8/4(S) 11/18/2024 9:54 AM EDT [facility] AZTREONAM <4(S) 11/18/2024 9:54 AM EDT [facility] CEFAZOLIN >16(R) 11/18/2024 9:54 AM EDT [facility] CEFEPIME <2(S) 11/18/2024 9:54 AM EDT [facility] CEFTAZIDIME <1(S) 11/18/2024 9:54 AM EDT [facility] CEFTAZIDIME/AVIBA CTAM <4(S) 11/18/2024 9:54 AM EDT [facility] CEFTOLOZANE/TAZOB ACTAM <2(S) 11/18/2024 9:54 AM EDT [facility] CEFTRIAXONE <1(S) 11/18/2024 9:54 AM EDT [facility] CEFUROXIME 8(S) 11/18/2024 9:54 AM EDT [facility] CIPROFLOXACIN <0.25(S) 11/18/2024 9:54 AM EDT [facility] ERTAPENEM <0.5(S) 11/18/2024 9:54 AM EDT [facility] GENTAMICIN <2(S) 11/18/2024 9:54 AM EDT [facility] LEVOFLOXACIN <0.5(S) 11/18/2024 9:54 AM EDT [facility] MEROPENEM <1(S) 11/18/2024 9:54 AM EDT [facility] MEROPENEM/VABORBA CTAM <2(S) 11/18/2024 9:54 AM EDT [facility] PIPERACILLIN/TAZO BACTAM <8(S) 11/18/2024 9:54 AM EDT [facility] TETRACYCLINE <4(S) 11/18/2024 9:54 AM EDT [facility] TIGECYCLINE <2(S) 11/18/2024 9:54 AM EDT [facility] TOBRAMYCIN <2(S) 11/18/2024 9:54 AM EDT [facility] TRIMETHOPRIM/SULF AMETHOXAZOLE <0.5/9.5( S) 11/18/2024 9:54 AM EDT [facility] Other Structure of right foot / Unknown 11/16/2024 4:48 PM EDT 11/16/2024 5:30 PM EDT Comment:Ulcer Maureen Fritz M COUNTS INCLUDE 234 BEDS AT [facility] Final Resu lt Performing Organization Address [facility] de Phone Number COUNTS INCLUDE 234 BEDS AT THE [facility] [address] [place] [address], [facility] [address] [place] [address] * SUPERFICIAL WOUND CULTURE ([facility]) (11/16/2024 4:48 PM EDT) [facility] ORGANISM Klebsiella oxytoca 9:54 AM EDT [facility] QUANTITY OF GROWTH Moderate Growth 11/18/2024 9:[address] [facility] ORGANISM Staphylococcus aureus 11/18/2024 9:54 AM EDT [facility] QUANTITY OF GROWTH Heavy Growth 11/18/2024 9:54 AM EDT [facility] Other Structure of right foot / Unknown 11/16/2024 4:48 PM EDT 11/16/2024 5:30 PM EDT Comment:Ulcer Maureen Fritz DPM LAB MICROBIOLOGY - GENERAL ORDERABLES Final Result Performing Organization Address [facility] de Phone Number COUNTS INCLUDE 234 BEDS AT THE [facility] [address] [place] [address], [facility] [address] [place] [address] from Last 3 Months Insurance [employer] MEDICARE MEDICAID [place] Care Teams Pie Maker Machine Relationship Specialty Start Date End Date Sandra Lewis DO [address] [facility] [place] [phone] PCP - General Family Medicine 10/15/24
--- OUTSIDE RECORDS SUMMARY | 2025-01-28 19:45 | XMS_ITS | CCD ---
Author Organization [facility] CliniSyla Care Team Providers Care Systems Programmer Name Role Phone MATTHEW VOSS MD Unavailable Unavailable UNASSIGNED, DOCTOR Unavailable Unavailable SUKHWINDER, ELOISA Unavailable Unavailable SUKHWINDER, ELOISA Unavailable Unavailable SUKHWINDER, ELOISA Unavailable Unavailable JONAS YODER Unavailable Unavailab Tray Stockton Unavailable [phone] Angelique Russell Unavailable Crispin Looney Unavailable Ruben Hahn Unavailable DO Tray Randle Emergency Provider Unavai MD Arleen Ralph Admit Provider DO Walter Montgomery Other Provider MD Teresa Strong Other Provider MD Wilmer Vance Attending Provider DO Jonas Yoder Primary Care Provider NO FAMILY, PHYSICIAN Primary Care Provider Unava ilable DO Rl Villavicencio Emergency Provider [phone] Francesca Santos Attending Unavailable ARLEEN STEPHEN Referring Unavailable Teresa Strong Attending Unavailable ARLEEN STEPHEN Referring Unavailable Teresa Strong Attending Unavailable Teresa Strong Attending Unavailable Sandra Keita Unavailable Tolu Salinas Unavailable DO Sandra Keita Primary Care Provider [phone] DO Sandra Keita Attending Provider Reyna Dalals Unavailable Brayden Noble Unavailable [phone] DO Jonas Yoder Primary Care Provider NITZA Russell Attending Provider Keita, Sandra A Primary Care Provider Keita, DO Sandra A Attending Provider [phone] Keita, DO Sandra A Primary Care Provider [...] Provider MD Cara Tenorio Other Provider Fidel [facility] Elizabeth Samayoa Other Provider MD Ashley Cheatham Other Provider Debbie BONNER, Sandra A Primary Care Provider DO Debbie Sandra A Primary Care Provider MD Oz Kincaid Attending Provider [phone] MD Jonas Ch Attending Provider DO Rl Villavicencio Emergency Provider [phone] DO Jluis Campos Admit Provider [phone] DO Jluis Campos Attending Provider Saranya Wright Other Provider Unavailable Fay, PhD Cash Other Provider [phone] DO Jelly Tuttle Other Provider MD John Murillo Other Provider [phone] DO Lit Clark Other Provider Dar, [facility] Dayana Other Provider DO Roque Isidro Other Provider NITZA Calvo Other Provider CHERYL Medina Other Provider Patrice ELECTRICIAN MASTER-STAFF RADIOLOGIST-C Jeanine E Other Provider MD Chaka Frye Attending Provider [phone] DO Rl Villavicencio Emergency Provider DO Jluis Campos Admit Provider Saranya Wright Other Provider Unavailable Fay, PhD Cash Other Provider DO Jelly Tuttle Other Provider MD John Murillo Other Provider DO Lit Clark Other Provider Dar [facility] Dayana Other Provider DO Roque Isidro Other Provider NITZA Calvo Other Provider CHERYL Medina Other Provider Patrice ELECTRICIAN MASTERSTAFF RADIOLOGIST-C Jeanine E Other Provider MD Chaka Frye Attending Provider NITZA Salinas Referring Provider Keita, DO Sandra [...] Admit Provider Jori Hearn DO Attending Provider [phone] Priscilla Lang MD Attending Provider Lit Clark DO Other Provider Keita DO, Sandra A Primary Care Provider Keita DO, Sandra A Attending Provider Keita DO, Sandra A Primary Care Provider Roland Faust MD Attending Provider Angelique Russell APRN Other Provider Nataliya Jane APRN Attending Provider Oz Kincaid MD Referring Provider [phone] Keita DO, Sandra A Primary Care Provider Rl Villavicencio DO Emergency Provider Wesley Villafuerte PA-C Emergency Provider Jori Hearn DO Admit Provider [phone] Priscilla Lang MD Attending Provider Amber DOLit Other Provider Keita DO, Sandra A Attending Provider Roland Faust MD Attending Provider Angelique Russell APRN Other Provider Nataliya Jane APRN Attending Provider Oz Kincaid MD Referring Provider Deneen Frost PA-C Attending Provider Keita DO, Sandra A Primary Care Provider Keita DO, Sandra A Primary Care Provider Rosibel VARGAS, Manjit Attending Provider Keita DO, Sandra A Primary Care Provider Keita DO, Sandra Primary Care Provider Keita DO, Asndra Primary Care Provider Monico VARGAS, Andrius Doss Attending Unavailable Monico VARGAS, Andrius Vytautjing Attending Unavailable Keita DO, Sandra A Primary Care Provider Yvonne GODDARD, Angelique Best Attending Provider [phone] Keita DO, Sandra A Attending Provider Edgar Eden DO Attending Provider [phone] Rosibel VARGAS, Imad Other Provider Samm Medina MD Attending Provider [phone] Keita DO, Sandra A Referring Provider NO FAMILY, PHYSICIAN Primary Care Provider Karl Vazquez DPM Attending Provider Shantel Norton APRN Primary Care Provider Shantel Norton APRN Attending Provider [phone] Rohrbacher ELECTRICIAN MASTER-PROP AND SCENERY MAKERShantel A Primary Care Pro vider TRABANA MARÍA, MOURHAF Attending Unavailable TRABOULSSI, MOURHAF Referring Unavailable VIANNEYJIMSHANTEL A Primary Care Unavailab le TRABOULSSI, MOURHAF Attending Unavailable TRABOULSSI, MOURHAF Referring Unavailable KEITA, SANDRA A Primary Care Unavailable TRABOULTWANI, MOURHAF Attending Unavailable JONAS CH Referring Unavailable KEITA, SANDRA A Primary Care Unavailable Adam VARGAS, Samm Ferreira Attending Provider [phone] Samm Medina MD Other Provider [phone] Angelique Russell APRN Attending Provider OZ KINCAID Attending Unavailable OZ KINCAID Attending Unavailable KARL FRITZ Attending Unavailable KARL FRITZ Attending Unavailable KARL FRITZ Attending Unavailable OZ KINCAID Attending Unavailable OZ KINCAID Referring Unavailable OZ KINCAID Attending Unavailable OZ KINCAID Referring Unavailable BEOZ Gutierrez Referring Unavailable BEOZ Gutierrez Attending Unavailable AMY KARL H Attending Unavailable AMY KARL H Attending Unavailable BEOZ Gutierrez Attending Unavailable BEOZ Gutierrez Attending Unavailable AMY KARL H Attending Unavailable Keita, Sandra A Primary Care Unavailable Asaad, Imad Admitting Unavailable Asaad, Imad Attending Unavailable Oz Kincaid Referring Unavailable Keita, Sandra A Primary Care Unavailable Nataliya Jane Admitting Unavail able Nataliya Jane Attending Unavail able Rl Villavicencio Attending Unavailable Keita, Sandra A Primary Care Unavailable Rl Villavicencio Admitting Unavailable Keita, Sandra A Primary Care Unavailable Asaad, Imad Admitting Unavailable Asaad, Imad Attending Unavailable Keita, Sandra A Primary Care Unavailable Tray Nava Admitting UnavailTray Luke Attending Unavailabl e Angelique Russell Consulting Unavailable Traboulssi, Mourhaf Admitting Unavailable Traboulssi, Mourhaf Attending Unavailable Keita, Sandra A Primary Care Unavailable Keita, Sandra A Primary Care Unavailable Keita, Sandra A Attending Unavailable Keita, Sandra A Admitting Unavailable Lit Clark Unavailab Jori Carvalho Admitting Unavailable Sandra Keita Primary Care Unavailable Priscilla Lang Attending Unavailable Shantel Norton Primary Care Unavailable Samm Medina Admitting Unavailable Samm Medina Attending Unavailable Karl Fritz Admitting Unavailable Karl Fritz Attending Unavailable Deneen Frost Admitting Unavailable Deneen Frost Attending Unavailable Allergies Allergy Classification Reported Allergen(s) Allergy Type Date of Onset Reaction(s) Facility (20 sources) Sulfamethoxazole ; Translations: [sulfamethoxazol e] Drug Allergy 3 Unknown [facility] Repository (17 sources) Sulfonamides (Antibiotic); Translations: [SULFA (SULFONAMIDE ANTIBIOTICS)] Allergy to substance 9 GI intolerance, Unknown, Nausea/vomiting [facility] (20 sources) Sulfonamides (Antibiotic) Drug Allergy 9 GI intolerance, Unknown [facility] (2 sources) pioglitazone; Translations: [pioglitazone] Drug Allergy 5 leg edema [facility] Medications Current Medications Medication Drug Class(es) Dates [...] Sensor (FreeStyle Brent 14 Day Sensor) mis (20 sources) Start: 12-21-2022 Continuous Blood Gluc Sensor (FreeStyle Brent 14 Day Sensor) [facility] [place] apply 1 SENSOR as directed every 14 [...] 12, 2023 4:43pm take [address] [facility] twice daily docusate sodium (Colace) 100 [...] 28, 2024 1:58pm Complies with drug therapy [id number] 0.3 ml EPINEPHrine 1 mg/ml auto-injector (4 [...] by razo bcutaneous injection once daily Ashley Merida 300 UNIT/ML 20 units once daily Subcutaneous [...] hydrochloride 10 mg oral tablet (20 sources) H-txmwou-Q-aspartate Receptor Antagonist Start: 07-21-2024 memantine (Namenda) 10 [...] mg capsule Discontinued 50 MG PO Daily November 18, 2023 2:01pm February 03, 2024 [...] 18, 2023 8:10pm take [address] [facility] every twenty-four hours Nortriptyline HCl 50 [...] Start: 01-07-2024 take 1 capsule [facility] twice daily pregabalin (Lyrica) 300 MG [...] 2024 12:00am sertraline 50 mg oral tablet (8 sources) Serotonin Reuptake Inhibitor Start: 01-12-2025 take 1 tablet by mouth once daily sertraline (Zoloft) 50 MG tablet Take 50 mg by mouth Daily 01/12/2025 Active Start: 12-15-2024 End: 01-12-2025 take 1 tablet [...] Start: 10-12-2021 take 1 tablet by umer th twice daily Varenicline Tartrate 1 MG 1 tablet after eating with a full glass of water Orally Twice a day for 30 days Sep, Not-Taking vitamin b12 2.5 mg oral tablet (20 sources) Vitamin B12 Start: 11-14-2023 cyanocobalamin (Vitamin B-12) 2500 MCG tablet 11/14/2023 Active Start: 11-14-2023 take 1 capsule by [facility] once daily Cyanocobalamin (Vitamin B-12) 1,000 [...] Twice daily 09 29December 13, 2021 12:00am Start: 12-13-2021 take 500 [...] November 04, 2023 1:04pm Miscellaneous Medical Supply [facility] [place] (20 sources) Start: 11-26-2023 End: 04-28-2024 Miscellaneous [...] 2024 10:11am pen needle, diabetic (Sure-Fine Pen Sully) (20 sources) Start: 06-12-2023 End: 01-05-2025 pen needle, diabetic (Sure-Fine Pen Sully) Discontinued .Route June 12, 2023 1:00am January 05, 2025 1:32pm Start: 06-12-2023 pen needle, di abetic (Sure-Fine Pen Sully) Active .Route June 12, 2023 1:00am Start: 06-12-2023 pen needle, di abetic (Sure-Fine Pen Sully) Active .Route June 12, 2023 12:00am Start: 06-12-2023 pen needle, di abetic (Sure-Fine Pen Sully) Active .ROUTE June 12, 2023 12:00am pioglitazone [...] 4:43pm Start: 08-09-20[address] [facility] every twenty-four hours Temazepam 30 MG 1 capsule at bedtime as needed Orally Once a day for 30 days Jul, Active Start: 07-04-2022 take 1 capsule by [facility] every twenty-four hours Temazepam 30 MG 1 capsule at bedtime as needed Orally Once a day for 30 days Jun, Active Start: 06-04-2022 take 1 capsule by mo [facility] every twenty-four hours Temazepam 30 MG 1 capsule at bedtime as needed Orally Once a day for 30 days May, Active Start: 06-28-2021 [address] [facility] every twenty-four hours Temazepam 15 MG [...] [Ulcer of other part of foot] Onset: 11-16-2024 01-28-2024 Chronic Coma; stupor; and brain damage (8 sources) Daytime somnolence; Translations: [Somnolence] 10-01-2024 Episodic Complications of surgical procedures or medical care (10 sources) Complication of ventilation therapy 10-01-2024 Episodic Congestive heart failure; nonhypertensive (10 sources) [...] sources) Long-term current use of insulin; Translations: [skilled nursing (current) use of insulin] 06-12-2023 Episodic Other aftercare (12 sources) watermelon inspector (current) use of insulin; Translations: [Long-term (current) [...] 12-13-2023 12-13-2023 Chronic Other nervous system disorders (20 sources) Impaired cognition; Translations: [Other symptoms and signs involving cognitive functions and awareness] Onset: 02-25-2024 02-25-2024 Episodic Other nervous system disorders (5 sources) Numbness; [...] state; Translations: [Asymptomatic menopausal state] 12-16-2024 Episodic Skin and subcutaneous tissue infections (6 sources) Cellulitis of right foot; Translations: [Cellulitis of right lower limb] 01-07-2024 Episodic Spondylosis; intervertebral disc disorders; other [...] / F17.200(ICD-10) Onset: 05-16-2017 Unclassified (1 source) watermelon inspector (current) use of aspirin / Z79.82(ICD-10) Onset: 05-16-2017 Unclassified (1 source) skilled nursing (current) use of oral hypoglycemic drugs / [...] [Weakness] Onset: 04-28-2024 11-10-2023 Episodic Other aftercare (7 sources) Taking high risk medication; Translations: [Other terminal 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 (current) drug therapy] Onset: 11-13-2023 Resolved: 12-30-2024 11-13-2023 Episodic Other connective tissue disease (1 source) Pain in right leg Onset: 04-03-2021 Resolved: 04-03-2021 Episodic Other connective tissue disease (1 source) Pain in left leg Onset: 04-03-2021 Resolved: 04-03-2021 Episodic Other connective tissue disease (20 sources) Neurogenic pain; Translations: [Neuralgia and neuritis, unspecified] Onset: 10-29-2023 4 Episodic Other connective tissue disease (20 sources) Muscle atrophy; Translations: [Muscle wasting and atrophy, not elsewhere classified, multiple sites] Onset: 10-29-2023 10-29-2023 Episodic Other connective tissue disease (20 sources) Pain in bilateral legs; Translations: [Pain in right leg] Onset: 10-29-2023 10-29-2023 Episodic Other gastrointestinal disorders (5 sources) Dysphagia, unspecified; Translations: [Dysphagia, unspecified] Onset: 09-10-2024 Episodic Other hematologic conditions (15 sources) Secondary polycythemia; 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, secondary] Onset: 06-26-2024 04-14-2024 Episodic Other skin disorders (1 source) Corns [...] 01-05-2025 HbA1c (Bld) [Mass fraction] 8.6 % [facility] No Panel InformationOrdered By: Angelique Russell on 01-05-2025 Bedside Glucose 259 [facility] MR LUMBAR SPINE WO CONTRASTo n 12-31-2024 [...] cx Nom (Unsp spec) Klebsiella oxytoca Abnormal [facility] Bacteria identified Aer cx Nom (Unsp spec) Staphylococcus aureus Abnormal [facility] Superficial Wound Cultureon 11-16-2024 Superficial Wound Culture [...] RESISTANT TO ALL B-LACTAM DRUGS. PERFORMED BY: [place] [address] PATHOLOGIST SALES AGENT INSURANCE BENNIE HIGGINBOTHAM M.D. Normal [facility] Comment on above: Performed By: #### L IPID, BMP #### [address] XR Foot - right 3 Viewson [...] sesamoids and metatarsal head right 1st metatarsal. [facility] Radiology Study observation (narrative) [facility] Capillary blood glucose steve urement by glucometer (mass/volume)Ordered By: Manjit Gleason on 09-10-2024 Glucose [Mass/Vol] 234 mg/dL Normal [facility] Comment on above: Random Glucose Refer ence Range is dependent on time and content of last meal. Glucose of more than 200 mg/dL in a nonstressed, ambulatory subject supports the diagnosis of Diabetes Mellitus. Result Comment: [facility] Glucose Reference Range is dependent on time and content of last meal. Glucose of more than 200 mg/dL in a nonstressed, ambulatory subject supports the diagnosis of Diabetes Mellitus. Performed By: #### C MP, MG, PHOS, CBC #### [facility] [address] Glucose Glucometer (BldC) [M ass/Vol]Ordered By: Manjit Gleason on 09-10-2024 Glucose [Mass/Vol] Capillary blood gluc ose measurement by glucometer (mass/volume) [facility] Comment on above: Random Glucose Refer ence Range is dependent on time and content of last meal. Glucose of more than 200 mg/dL in a nonstressed, ambulatory subject supports the diagnosis of Diabetes Mellitus. Glucose Poct Glucometerson 0 09-10-2024 Commemt1 Glu2: Cleaned Meter Normal [facility] Comment on above: Result Comment: PERF ORMED BY: [facility] [address] [place] [address] PATHOLOGIST SALES AGENT INSURANCE LE MACE M.D. Performed By: #### C MP, MG, PHOS, CBC #### [facility] [address] No Panel InformationOrdered By: Manjit Gleason on 09-10-2024 Miscellaneous Pathology Test See comment [facility] Comment on above: See report. Scanned copy available in EMR. Bedside Glucose Comment Glu2: cleaned meter [facility] Pathology Request for Lab Co rpon 09-10-2024 Pathology Request for Lab Rory Normal [facility] Comment on above: Order Comment: ARNIE NG N Result Comment: See report. Scanned copy available in EMR. PERFORMED BY: [place] [address] PATHOLOGIST SALES AGENT INSURANCE LE MACE M.D. Performed By: #### L IPID, BMP #### [address] HbA1c HPLC (Bld) [Mass fract ion]on 08-20-2024 HbA1c (Bld) [Mass fraction] Hemoglobin A1c/Hemoglobin.total in Blood by HPLC [facility] HbA1c (Bld) [Mass fraction] 8.8 % [facility] No Panel Informationon 08-20 Bedside Glucose 269 [facility] US ankle/arm indiceson 07-23 US ankle/arm indices [facility] [address] [place] [address] Ultrasound Report Signed Patient: Taye Gay MR#: [id number] 19 : 1955 Acct:[id number] Age/Sex: 68 / F ADM Date: 07/22/24 Loc: [facility] Room: Type: [facility] Attending Dr: Tray Nava MD Ordering [...] Eugenio Rob M.D.07/23/2024 9:21 AM Dictation Location: [place] [address] Tech: Carmelita Horowitz Transcribed By: AMY 07/23/24920 Dictated By: Eugenio Rob MD 07/23/24919 Signed By: 07/23/24920 Normal [facility] Urine Cultureon 07-06-2024 Bacteria identified Cx Nom (U) ORGANISM: Klebsiella oxytoca (O:KLEOXY) Dorr Count >100,000 Aerobic FAMILIA Charge (NMIC56) - [...] TO ALL B-LACTAM DRUGS. PERFORMED BY: [address] [place] [address] PATHOLOGIST SALES AGENT INSURANCE LE MACE M.D. Normal [facility] Comment on above: Performed By: #### L IPID, BMP #### [facility] [address] [place] [address] Urine cultureOrdered By: Columba Frost on 07-06-2024 Bacteria identified Cx Nom (U) Abnormal [facility] Alanine aminotransferase [En zymatic activity/volume] in Serum or PlasmaOrdered By: Barbera Mapus on 06-26-2024 ALT [Catalytic activity/Vol] Alanine aminotransferase [Enzymatic activity/volume] in Serum or Plasma 7-52 [facility] Albumin [Mass/volume] in Ser um or Plasma by Bromocresol green (BCG) dye binding methoOrdered By: Tondra Mapus on 06-26-2024 Albumin BCG dye [Mass/Vol] Albumin [Mass/volume] in Serum or Plasma by Bromocresol green (BCG) dye binding metho 3.5-5.7 [facility] Alkaline phosphatase [Enzyma tic activity/volume] in Serum or PlasmaOrdered By: Tondra Mapus on 06-26-2024 ALP [Catalytic activity/Vol] Alkaline phosphatase [Enzymatic activity/volume] in Serum or Plasma 34-104 [facility] Aspartate aminotransferase [ Enzymatic activity/volume] in Serum or PlasmaOrdered By: Tondra Mapus on 06-26-2024 AST [Catalytic activity/Vol] Aspartate aminotransferase [Enzymatic activity/volume] in Serum or Plasma 13-39 [facility] B-Type Natriuretic Peptideon 06-26-2024 Natriuretic peptide B (Bld) [Mass/Vol] 54.0 pg/mL Normal 5-100 [facility] Comment on above: Result Comment: PERF ORMED BY: [place] [address] PATHOLOGIST SALES AGENT INSURANCE LE MACE M.D. Performed By: #### T SH3 wRFLX, LIPID #### [facility] [address] [place] [address] BCR-ABL Neogenomicon 025 BCR-ABL Neogenomic Normal [facility] Comment on above: Result Comment: See report. Scanned copy available in EMR. PERFORMED BY: [facility] [address] [place] [address] PATHOLOGIST SALES AGENT INSURANCE LE MACE M.D. Performed By: #### C MP, MG, PHOS, CBC #### [facility] [address] Basophils Auto (Bld) [#/Vol] Ordered By: Nataliya Jane on 06-26-2024 Basophils (Bld) [#/Vol] Automated basophil count 0.0-0.2 [facility] Basophils/100 WBC Auto (Bld) Ordered By: Nataliya Jane on 06-26-2024 Basophils/100 WBC (Bld) Automated basophil % . [facility] Bilirubin.total [Mass/volume ] in Serum or PlasmaOrdered By: Angelique Russell on 06-26-2024 Bilirubin [Mass/Vol] Bilirubin.total [Mass/volume] in Serum or Plasma 0.3-1.0 [facility] CBC W Auto Differential pane l (Bld)on 06-26-2024 Basophils (Bld) [#/Vol] 0 10*3/uL 0.0 - 0.2 10*3/uL [facility] Basophils/100 WBC Manual cnt (Syn fld) 0.5 % . [facility] Eosinophils (Bld) [#/Vol] 0.2 10*3/uL 0.0 - 0.45 10*3/uL [facility] Eosinophils/100 WBC Manual cnt (Syn fld) 2.7 % . [facility] Erythrocyte distribution width (RBC) [Ratio] 14.6 % 11.9 - 15.3 % [facility] Hematocrit (Bld) [Volume fraction] 46.4 % 34.0 - 46.4 % [facility] Hemoglobin (Bld) [Mass/Vol] 15.8 g/dL High 11.8 - 15.4 g/dL [facility] Interpretation and review of laboratory results Abnormal [facility] Lymphocytes (Bld) [#/Vol] 1.6 10*3/uL 1.00 - 4.8 10*3/uL [facility] Lymphocytes/100 WBC Manual cnt (Syn fld) 23.1 % . [facility] MCH (RBC) [Entitic mass] 32.6 pg 24.7 - 34.3 pg [facility] MCHC (RBC) [Mass/Vol] 34.2 g/dL 32.0 - 35.0 g/dL [facility] MCV (RBC) [Entitic vol] 95.3 fL 80 - 100 fL [facility] Monocytes (Bld) [#/Vol] 0.5 10*3/uL 0.0 - 0.8 10*3/uL [facility] Monocytes+Macrophages/1 00 WBC Manual cnt (Syn fld) 6.6 % . [facility] Neutrophils (Bld) [#/Vol] 4.6 10*3/uL 1.8 - 7.7 10*3/uL [facility] Neutrophils/100 WBC Manual cnt (Syn fld) 67.1 % . [facility] NRBC 0.1 /100{WBC} 0 - 0.5 /100{WBC} [facility] Platelet mean volume (Bld) [Entitic vol] 10.4 fL 6.3 - 10.7 fL [facility] Platelets (Bld) [#/Vol] 120 10*3/uL Low 150 - 450 10*3/uL [facility] RBC LM.HPF (Urine sed) [#/Area] 4.86 10*6/uL 3.60 - 5.00 10*6/uL [facility] WBC (Bld) [#/Vol] 6.9 10*3/uL 3.8 - 11.6 10*3/uL [facility] WBC LM.HPF (Urine sed) [#/Area] 6.9 10*3/uL 3.8 - 11.6 10*3/uL [facility] Calcium [Mass/volume] in Ser um or PlasmaOrdered By: Angelique Russell on 06-26-2024 Calcium [Mass/Vol] Calcium [Mass/volume ] in Serum or Plasma 8.6-10.3 [facility] Carbon dioxide, total [Moles /volume] in Serum or PlasmaOrdered By: Barbera Yvonne on 06-26-2024 CO2 [Moles/Vol] Carbon dioxide, tota l [Moles/volume] in Serum or Plasma 21.0-31.0 [facility] Chloride [Moles/volume] in S elliot or PlasmaOrdered By: Angelique Russell on 06-26-2024 Chloride [Moles/Vol] Chloride [Moles/vol ume] in Serum or Plasma 98-107 [facility] Cholesterol [Mass/volume] in Serum or PlasmaOrdered By: Angelique Russell on 06-26-2024 Cholesterol [Mass/Vol] Cholesterol [Mass/volume] in Serum or Plasma Low 140-200 [facility] Comment on above: Chol less than 200 m g/dl low riskChol 201-239 mg/dl borderline riskChol 240 mg/dl and greater high risk Cholesterol in HDL [Mass/vol ume] in Serum or PlasmaOrdered By: Angelique Russell on 06-26-2024 Cholesterol in HDL [Mass/Vol] Serum or plasma high density lipoprotein (HDL) cholesterol measurement 23- [facility] Comment on above: HDL CHOL ATP-III CLA SSIFICATION Cardiovascular RiskHDL > or equal to 60 mg/dL LOWHDL < 40 mg/dL HIGH Cholesterol in LDL Calc [Mas s/Vol]Ordered By: Angelique Russell on 06-26-2024 Cholesterol in LDL [Mass/Vol] Cholesterol in LDL [Mass/volume] in Serum or Plasma by calculation 0-100 [facility] Comment on above: LDL ATP III CLASSIFI CATIONLDL less than 100 mg/dL OptimalLDL 100-129 mg/dL Near or above optimalLDL 130-159 mg/dL Borderline highLDL 160-189 mg/dL HighLDL greater than 189 mg/dL Very high Cholesterol in VLDL Calc [Ma ss/Vol]Ordered By: Angelique Russell on 06-26-2024 Cholesterol in VLDL [Mass/Vol] Cholesterol in VLDL [Mass/volume] in Serum or Plasma by calculation [facility] Complete Blood Count Auto Di ffon 06-26-2024 Basophils (Bld) [#/Vol] 0.0 10*3/uL Normal 0.0-0.2 The [facility] Comment on above: Result Comment: PERF ORMED BY: [facility] [address] [place] [address] PATHOLOGIST SALES [employer] MACE M.D. Performed By: #### L IPID, BMP #### [place] [address] [place] Basophils/100 WBC (Bld) 0.5 % Normal . T kan [facility] Comment on above: Performed By: #### L IPID, BMP #### [place] [address] [place] Eosinophils (Bld) [#/Vol] 0.2 10*3/uL Normal 0.0-0.45 The [facility] Comment on above: Performed By: #### L IPID, BMP #### [place] [address] [place] Eosinophils/100 WBC (Bld) 2.7 % Normal . The [facility] Comment on above: Performed By: #### L IPID, BMP #### [address] Erythrocyte distribution width (RBC) [Ratio] 14.6 % Normal 11.9-15.3 The [facility] Comment on above: Performed By: #### L IPID, BMP #### [place] [address] [place] Hematocrit (Bld) [Volume fraction] 46.4 % Normal 34.0-46.4 The [facility] Comment on above: Performed By: #### L IPID, BMP #### [place] [address] [place] Hemoglobin (Bld) [Mass/Vol] 15.8 g/dL High 11.8-15.4 The [facility] Comment on above: Performed By: #### L IPID, BMP #### [place] [address] [place] Lymphocytes (Bld) [#/Vol] 1.6 10*3/uL Normal 1.00-4.8 The [facility] Comment on above: Performed By: #### L IPID, BMP #### [place] [address] [place] Lymphocytes/100 WBC (Bld) 23.1 % Normal . The [facility] Comment on above: Performed By: #### L IPID, BMP #### [address] MCH (RBC) [Entitic mass] 32.6 pg Normal 24.7-34.3 The [facility] Comment on above: Performed By: #### L IPID, BMP #### [address] MCV (RBC) [Entitic vol] 95.3 fL Normal 80-100 T [facility] Comment on above: Performed By: #### L IPID, BMP #### [address] Mean Corpuscular HGB Conc 34.2 g/dL Normal 32.0-35.0 The [facility] Comment on above: Performed By: #### L IPID, BMP #### [address] Monocytes (Bld) [#/Vol] 0.5 10*3/uL Normal 0.0-0.8 The [facility] Comment on above: Performed By: #### L IPID, BMP #### [place] [address] [place] Monocytes/100 WBC (Bld) 6.6 % Normal . T [facility] Comment on above: Performed By: #### L IPID, BMP #### [address] Neutrophils (Bld) [#/Vol] 4.6 10*3/uL Normal 1.8-7.7 The [facility] Comment on above: Performed By: #### L IPID, BMP #### [place] [address] [place] Neutrophils/100 WBC (Bld) 67.1 % Normal . The [facility] Comment on above: Performed By: #### L IPID, BMP #### [address] NRBC% 0.1 /100{WBC} Normal 0-0.5 The [facility] Comment on above: Performed By: #### L IPID, BMP #### [address] [place] [address] [place] Platelet mean volume (Bld) [Entitic vol] 10.4 fL Normal 6.3-10.7 The [facility] Comment on above: Performed By: #### L IPID, BMP #### [address] Platelets (Bld) [#/Vol] 120 10*3/uL Low 150-450 The [facility] Comment on above: Performed By: #### L IPID, BMP #### [address] RBC (Bld) [#/Vol] 4.86 10*6/uL Normal 3.60-5.00 The [facility] Comment on above: Performed By: #### L IPID, BMP #### [address] WBC (Bld) [#/Vol] 6.9 10*3/uL Normal 3.8-11.6 The [facility] Comment on above: Performed By: #### L IPID, BMP #### [address] Comprehensive Metabolic Pane juan 06-26-2024 Albumin [Mass/Vol] 3.8 g/dL Normal 3.5-5.7 The [facility] Comment on above: Performed By: #### T SH3 wRFLX, LIPID #### [address] Albumin/Globulin [Mass ratio] 1.5 {ratio} Normal The [facility] Comment on above: Performed By: #### T SH3 wRFLX, LIPID #### [address] ALP [Catalytic activity/Vol] 92 U/L Normal 34-104 The [facility] Comment on above: Result Comment: PERF ORMED BY: [place] [address] PATHOLOGIST SALES AG[employer] M.D. Performed By: #### T SH3 wRFLX, LIPID #### [facility] [address] [place] [address] [place] ALT [Catalytic activity/Vol] 23 U/L Normal 7-52 The [facility] Comment on above: Performed By: #### T SH3 wRFLX, LIPID #### [facility] [address] [place] [id number] [place] Anion gap [Moles/Vol] 12.2 mmol/L Normal 6.0-15.0 Th e [facility] Comment on above: Performed By: #### T SH3 wRFLX, LIPID #### [facility] [address] AST [Catalytic activity/Vol] 36 U/L Normal 13-39 The [facility] Comment on above: Performed By: #### T SH3 wRFLX, LIPID #### [facility] [address] [place] [address] [place] Bilirubin [Mass/Vol] 0.4 mg/dL Normal 0.3-1.0 The [facility] Comment on above: Performed By: #### T SH3 wRFLX, LIPID #### [facility] [address] [place] [address] [place] Calcium [Mass/Vol] 9.4 mg/dL Normal 8.6-10.3 The [facility] Comment on above: Performed By: #### T SH3 wRFLX, LIPID #### [facility] [address] [place] [address] [place] Chloride [Moles/Vol] 103 mmol/L Normal 98-107 The [facility] Comment on above: Performed By: #### T SH3 wRFLX, LIPID #### [facility] [address] [place] [id number] [place] CO2 [Moles/Vol] 29.0 mmol/L Normal 21.0-31.0 The [facility] Comment on above: Performed By: #### T SH3 wRFLX, LIPID #### [facility] [address] [place] [address] [place] Creatinine [Mass/Vol] 0.93 mg/dL Normal 0.60-1.20 The [facility] Comment on above: Performed By: #### T SH3 wRFLX, LIPID #### [facility] [address] [place] [address] [place] GFR/1.73 sq M.predicted MDRD (S/P/Bld) [Vol rate/Area] mL/min/{1.73_m2} Normal The [facility] Comment on above: Performed By: #### T SH3 wRFLX, LIPID #### [facility] [address] [place] [address] [place] Globulin (S) [Mass/Vol] 2.6 g/dL Normal T he [facility] Comment on above: Performed By: #### T SH3 wRFLX, LIPID #### [facility] [address] Glucose [Mass/Vol] 256 mg/dL High 70-100 The [facility] Comment on above: Result Comment: [facility] Glucose Reference Range is dependent on time and content of last meal. Glucose of more than 200 mg/dL in a nonstressed, ambulatory subject supports the diagnosis of Diabetes Mellitus. ADA recommended reference range Performed By: #### T SH3 wRFLX, LIPID #### [address] Potassium [Moles/Vol] 4.2 mmol/L Normal 3.5-5.1 The [facility] Comment on above: Performed By: #### T SH3 wRFLX, LIPID #### [facility] [address] [place] [address] [place] Protein [Mass/Vol] 6.4 g/dL Normal 6.4-8.9 The [facility] Comment on above: Performed By: #### T SH3 wRFLX, LIPID #### [facility] [address] [place] [id number] [place] Sodium [Moles/Vol] 140 mmol/L Normal 136-145 The [facility] Comment on above: Performed By: #### T SH3 wRFLX, LIPID #### [facility] [address] [place] [address] [place] Urea nitrogen [Mass/Vol] 9 mg/dL Normal 7-25 The [facility] Comment on above: Performed By: #### T SH3 wRFLX, LIPID #### [facility] [address] [place] [id number] [facility] Creatinine [Mass/volume] in Serum or PlasmaOrdered By: Angelique Russell on 06-26-2024 Creatinine [Mass/Vol] Creatinine [Mass/v olume] in Serum or Plasma 0.60-1.20 [facility] Creatinine [Mass/volume] in UrineOrdered By: Angelique Russell on 06-26-2024 Creatinine (U) [Mass/Vol] Creatinine [Mass/volume] in Urine [facility] Comment on above: No reference range e stablished ECG 12 Leadon 06-26-2024 Normal sinus rhythm [facility] Work Phone: Eosinophils Auto (Bld) [#/Vo l]Ordered By: Nataliya Jane on 06-26-2024 Eosinophils (Bld) [#/Vol] Automated eosinophil count 0.0-0.45 [facility] Eosinophils/100 WBC Auto (Bl d)Ordered By: Nataliya Jane on 06-26-2024 Eosinophils/100 WBC (Bld) Automated eosinophil % . [facility] Erythrocyte distribution wid th Auto (RBC) [Ratio]Ordered By: Nataliya Jane on 06-26-2024 Erythrocyte distribution width (RBC) [Ratio] Erythrocyte distribution width [Ratio] by Automated count 11.9-15.3 [facility] Flowcytometry Neogenomicon 0 06-26-2024 Flowcytometry Neogenomic Normal [facility] Comment on above: Result Comment: See report. Scanned copy available in EMR. Performed By: #### C MP, MG, PHOS, CBC #### [facility] [address] [place] [id number] [facility] Globulin Calc (S) [Mass/Vol] Ordered By: Angelique Russell on 06-26-2024 Globulin (S) [Mass/Vol] Serum globulin measurement by calculation (mass/volume) [facility] Glucose [Mass/volume] in Ser um or PlasmaOrdered By: Angelique Russell on 06-26-2024 Glucose [Mass/Vol] Glucose [Mass/volume ] in Serum or Plasma High 70-100 [facility] Comment on above: ADA recommended refe rence rangeRandom Glucose Reference Range is dependent on time and content of last meal. Glucose of more than 200 mg/dL in a nonstressed, ambulatory subject supports the diagnosis of Diabetes Mellitus. Hematocrit Auto (Bld) [Volum e fraction]Ordered By: Nataliya Gaonaoren on 06-26-2024 Hematocrit (Bld) [Volume fraction] Hematocrit [Volume Fraction] of Blood by Automated count 34.0-46.4 [facility] Hemoglobin [Mass/volume] in BloodOrdered By: Nataliya Gaonaoren on 06-26-2024 Hemoglobin (Bld) [Mass/Vol] Hemoglobin [Mass/volume] in Blood High 11.8-15.4 [facility] FERDINAND 2 Neogenomicon FERDINAND 2 Neogenomic Normal The [facility] Comment on above: Result Comment: See report. Scanned copy available in EMR. Performed By: #### C MP, MG, PHOS, CBC #### [facility] [address] [place] [phone] [place] Leukocytes [#/volume] correc deepika for nucleated erythrocytes in Blood by Automated counOrdered By: Nataliya Gaonaoren on 06-26-2024 WBC corrected for nucl RBC Auto (Bld) [#/Vol] Leukocytes [#/volume] corrected for nucleated erythrocytes in Blood by Automated coun 3.8-11.6 [facility] Lipid Panelon 06-26-2024 Cholesterol [Mass/Vol] 93 mg/dL Low 140-200 Th e [facility] Comment on above: Result Comment: Chol less than 200 mg/dl low risk Chol 201-239 mg/dl borderline risk Chol 240 mg/dl and greater high risk Performed By: #### T SH3 wRFLX, LIPID #### [facility] [address] [place] [address] [place] Cholesterol in HDL [Mass/Vol] 27 mg/dL Normal 23-92 [facility] Comment on above: Result Comment: HDL CHOL ATP-III CLASSIFICATION Cardiovascular Risk HDL > or equal to 60 mg/dL LOW HDL < 40 mg/dL HIGH Performed By: #### T SH3 wRFLX, LIPID #### [facility] [address] [place] [address] [place] Cholesterol.total/Monica sterol in HDL [Mass ratio] 3.4 {ratio} Normal <5.0 [facility] Comment on above: Performed By: #### T SH3 wRFLX, LIPID #### [facility] [address] LDL Cholesterol,Calculated 34 mg/dL Normal 0-100 The [facility] Comment on above: Result Comment: LDL ATP III CLASSIFICATION LDL less than 100 mg/dL Optimal LDL 100-129 mg/dL Near or above optimal LDL 130-159 mg/dL Borderline high LDL 160-189 mg/dL High LDL greater than 189 mg/dL Very high Performed By: #### T SH3 wRFLX, LIPID #### [facility] [address] Triglyceride w/Reflex 162 mg/dL High 0-149 [facility] Comment on above: Result Comment: TRIG ATP III CLASSIFICATION TRIG less than 150 mg/dL Normal TRIG 150-199 mg/dL Borderline high TRIG 200-500 mg/dL High TRIG greater than 500 mg/dL Very high Standard traceable to the Center for Disease Conrtrol and Prevention (CDC) test method. Performed By: #### T SH3 wRFLX, LIPID #### [facility] [address] VLDL CHOLESTEROL 32 mg/dL Normal The [facility] Comment on above: Performed By: #### T SH3 wRFLX, LIPID #### [facility] [address] Lymphocytes Auto (Bld) [#/Vo l]Ordered By: Nataliya Jane on 06-26-2024 Lymphocytes (Bld) [#/Vol] Lymphocytes [#/volume] in Blood by Automated count 1.00-4.8 [facility] Lymphocytes/100 WBC Auto (Bl d)Ordered By: Nataliya Jane on 06-26-2024 Lymphocytes/100 WBC (Bld) Lymphocytes/100 leukocytes in Blood by Automated count . [facility] MCH Auto (RBC) [Entitic mass ]Ordered By: Nataliya Jane on 06-26-2024 MCH (RBC) [Entitic mass] MCH [Entitic mass] by Automated count 24.7-34.3 [facility] MCHC Auto (RBC) [Mass/Vol]Or dered By: Nataliya Jane on 06-26-2024 MCHC (RBC) [Mass/Vol] MCHC [Mass/volume] by Automated count 32.0-35.0 [facility] MCV Auto (RBC) [Entitic vol] Ordered By: Nataliya Jane on 06-26-2024 MCV (RBC) [Entitic vol] MCV [Entitic vol ume] by Automated count 80-100 [facility] MicroAlb Creat Ratio,Uon Albumin DL <= 20 mg/L (U) [Mass/Vol] mg/dL Normal 0.0-1.8 [facility] Comment on above: Performed By: #### C MP, MG, PHOS, CBC #### [facility] [address] Creatinine, Urine (Random) 65.00 mg/dL Normal [facility] Comment on above: Result Comment: No r eference range established Performed By: #### C MP, MG, PHOS, CBC #### [facility] [address] Microalbumin/Creatinine Ratio Not performed Normal 0.0-30.0 [facility] Comment on above: Result Comment: PERF ORMED BY: [place] [address] PATHOLOGIST SALES AG[employer] M.D. Performed By: #### C MP, MG, PHOS, CBC #### [facility] [address] Microalbumin [Mass/volume] i n UrineOrdered By: Angelique Russell on 06-26-2024 Albumin DL <= 20 mg/L (U) [Mass/Vol] Microalbumin [Mass/volume] in Urine 0.0-1.8 [facility] Monocytes Auto (Bld) [#/Vol] Ordered By: Nataliya Jane on 06-26-2024 Monocytes (Bld) [#/Vol] Automated blood monocyte count 0.0-0.8 [facility] Monocytes/100 WBC Auto (Bld) Ordered By: Nataliya Jane on 06-26-2024 Monocytes/100 WBC (Bld) Automated monocyte % . [facility] Natriuretic peptide B [Mass/ Vol]Ordered By: Roland Faust on 06-26-2024 Natriuretic peptide B (Bld) [Mass/Vol] BNP ser/plas 5-100 [facility] Neutrophils Auto (Bld) [#/Vo l]Ordered By: Nataliya Jane on 06-26-2024 Neutrophils (Bld) [#/Vol] Neutrophils [#/volume] in Blood by Automated count 1.8-7.7 [facility] Neutrophils/100 WBC Auto (Bl d)Ordered By: Nataliya Jane on 06-26-2024 Neutrophils/100 WBC (Bld) Automated neutrophil % . [facility] No Panel InformationOrdered By: Angelique Russell on 06-26-2024 Estimated GFR (CKD-EPI) > 60.0 mL/Min [facility] Pharmacy Creatinine Clearance (Chem N/A [facility] No Panel InformationOrdered By: Nataliya Jane on 06-26-2024 BCR/abl See comment [facility] Comment on above: See report. Scanned copy available in EMR. JAK2 [id number] See comment [facility] Comment on above: See report. Scanned copy available in EMR. Nucleated erythrocytes [Pres ence] in Blood by Automated countOrdered By: Nataliya Jane on 06-26-2024 Nucleated RBC Auto Ql (Bld) Nucleated erythrocytes [Presence] in Blood by Automated count 0-0.5 [facility] Platelet mean volume Auto (B ld) [Entitic vol]Ordered By: Nataliya Jane on 06-26-2024 Platelet mean volume (Bld) [Entitic vol] Platelet mean volume [Entitic volume] in Blood by Automated count 6.3-10.7 [facility] Platelets Auto (Bld) [#/Vol] Ordered By: Nataliya Jane on 06-26-2024 Platelets (Bld) [#/Vol] Platelets [#/vol ume] in Blood by Automated count Low 150-450 [facility] Potassium [Moles/volume] in Serum or PlasmaOrdered By: Angelique Russell on 06-26-2024 Potassium [Moles/Vol] Potassium [Moles/v olume] in Serum or Plasma 3.5-5.1 [facility] Protein [Mass/volume] in Ser um or PlasmaOrdered By: Angelique Russell on 06-26-2024 Protein [Mass/Vol] Protein [Mass/volume ] in Serum or Plasma 6.4-8.9 [facility] RBC Auto (Bld) [#/Vol]Ordere d By: Nataliya Jane on 06-26-2024 RBC (Bld) [#/Vol] Erythrocytes [#/volu me] in Blood by Automated count 3.60-5.00 [facility] Serum or plasma albumin/glob ulin mass ratioOrdered By: Angelique Russell on 06-26-2024 Albumin/Globulin [Mass ratio] Serum or plasma albumin/globulin mass ratio [facility] Serum or plasma anion gap de terminationOrdered By: Angelique Russell on 06-26-2024 Anion gap [Moles/Vol] Serum or plasma an ion gap determination 6.0-15.0 [facility] Serum or plasma total choles terol/high density lipoprotein (HDL) cholesterol mass ratOrdered By: Angelique Russell on 06-26-2024 Cholesterol.total/Monica sterol in HDL [Mass ratio] Serum or plasma total cholesterol/high density lipoprotein (HDL) cholesterol mass rat <5.0 [facility] Sodium [Moles/volume] in Ser um or PlasmaOrdered By: Angelique Russell on 06-26-2024 Sodium [Moles/Vol] Sodium [Moles/volume ] in Serum or Plasma 136-145 [facility] Thyroid Stim Hormone w/Rflxo n 06-26-2024 Thyroid Stim Hormone w/Rflx 1.45 u[iU]/mL Normal 0.45-5.33 [facility] Comment on above: Result Comment: PERF ORMED BY: [place] [address] PATHOLOGIST SALES AG[employer] M.D. Performed By: #### T SH3 wRFLX, LIPID #### [place] [address] [place] Thyrotropin [Units/volume] i n Serum or PlasmaOrdered By: Angelique Russell on 06-26-2024 TSH Qn Thyrotropin [Units/volume] in Serum or Plasma 0.45-5.33 [facility] Triglyceride [Mass/volume] i n Serum or PlasmaOrdered By: Angelique Russell on 06-26-2024 Triglyceride [Mass/Vol] Triglyceride [Mass/volume] in Serum or Plasma High 0-149 [facility] Comment on above: TRIG ATP III CLASSIF ICATIONTRIG less than 150 mg/dL NormalTRIG 150-199 mg/dL Borderline highTRIG 200-500 mg/dL High TRIG greater than 500 mg/dL Very highStandard traceable to the Center for Disease Conrtrol and Prevention (CDC) test method. Urea nitrogen [Mass/volume] in Serum or PlasmaOrdered By: Angelique Russell on 06-26-2024 Urea nitrogen [Mass/Vol] Urea nitrogen [Mass/volume] in Serum or Plasma 11-20 [facility] Urine microalbumin/creatinin e mass ratioOrdered By: Angelique Russell on 06-26-2024 Albumin/Creatinine DL <= 20 mg/L (U) [Mass ratio] Urine microalbumin/creatinine mass ratio [facility] Comment on above: Test not performed WBC Auto (Bld) [#/Vol]Ordere d By: Nataliya Jane on 06-26-2024 WBC (Bld) [#/Vol] Leukocytes [#/volume ] in Blood by Automated count 3.8-11.6 [facility] MR head/brain wo/w conon MR head/brain wo/w con [facility] [place] [address] MRI Report Signed Patient: Taye Gay MR#: [id number] 19 : 1955 Acct:[id number] Age/Sex: 68 / F ADM Date: 05/25/24 Loc: Room: Type: [facility] Attending Dr: Sandra Keita DO Copies to: [...] Eugenio Lazo M.D.05/25/2024 7:59 PM Dictation Location: [place] [address] Transcribed By: [facility] 05/25/241958 Dictated By: Eugenio Lazo DO 05/25/241953 Signed By: 05/25/241958 Normal [facility] Magnetic resonance imaging r eportOrdered By: Eugenio Lazo on 05-25-2024 Study report [facility] [address] [place] [address] MRI Report Signed Patient: Taye Gay MR#: [id number] : 1955 Acct:[id number] Age/Sex: 68 / F ADM Date: 5 Loc: MR Room: Type: [facility] Attending Dr: Sandra Keita DO Copies to: [...] No acute intracranial process. Impression dictated by: Eugeino Lazo M.D.05/25/2024 7:59 PM Dictation Location: [place] [address] Transcribed By: [facility] 05/25/241958 Dictated By: Eugenio Lazo DO 05/25/241953 Signed By: 05/25/241958 [facility] Alanine aminotransferase [En zymatic activity/volume] in Serum or PlasmaOrdered By: Priscilla Lang on 04-30-2024 ALT [Catalytic activity/Vol] Alanine aminotransferase [Enzymatic activity/volume] in Serum or Plasma 7-52 [facility] Albumin [Mass/volume] in Ser um or Plasma by Bromocresol green (BCG) dye binding methoOrdered By: Priscilla Lang on 04-30-2024 Albumin BCG dye [Mass/Vol] Albumin [Mass/volume] in Serum or Plasma by Bromocresol green (BCG) dye binding metho 3.5-5.7 [facility] Alkaline phosphatase [Enzyma tic activity/volume] in Serum or PlasmaOrdered By: Priscilla Lang on 04-30-2024 ALP [Catalytic activity/Vol] Alkaline phosphatase [Enzymatic activity/volume] in Serum or Plasma 34-104 [facility] Aspartate aminotransferase [ Enzymatic activity/volume] in Serum or PlasmaOrdered By: Priscilla Lang on 04-30-2024 AST [Catalytic activity/Vol] Aspartate aminotransferase [Enzymatic activity/volume] in Serum or Plasma 13-39 [facility] Basophils Auto (Bld) [#/Vol] Ordered By: Priscilla Lagn on 04-30-2024 Basophils (Bld) [#/Vol] Automated basophil count 0.0-0.2 [facility] Basophils/100 WBC Auto (Bld) Ordered By: Priscilla Lang on 04-30-2024 Basophils/100 WBC (Bld) Automated basophil % . [facility] Bilirubin.total [Mass/volume ] in Serum or PlasmaOrdered By: Priscilla Lang on 04-30-2024 Bilirubin [Mass/Vol] Bilirubin.total [Mass/volume] in Serum or Plasma 0.3-1.0 [facility] Calcium [Mass/volume] in Ser um or PlasmaOrdered By: Priscilla Lang on 04-30-2024 Calcium [Mass/Vol] Calcium [Mass/volume ] in Serum or Plasma 8.6-10.3 [facility] Carbon dioxide, total [Moles /volume] in Serum or PlasmaOrdered By: Priscilla Lang on 04-30-2024 CO2 [Moles/Vol] Carbon dioxide, tota l [Moles/volume] in Serum or Plasma 21.0-31.0 [facility] Chloride [Moles/volume] in S elliot or PlasmaOrdered By: Priscilla Lang on 04-30-2024 Chloride [Moles/Vol] Chloride [Moles/vol ume] in Serum or Plasma 98-107 [facility] Complete Blood Count Auto Di ffon 04-30-2024 Basophils (Bld) [#/Vol] 0.0 10*3/uL Normal 0.0-0.2 The [facility] Comment on above: Result Comment: PERF ORMED BY: [place] [address] PATHOLOGIST SALES AG[employer] MACE M.D. Performed By: #### C MP, MG, PHOS, CBC #### [facility] [address] Basophils/100 WBC (Bld) 0.4 % Normal . T kan [facility] Comment on above: Performed By: #### C MP, MG, PHOS, CBC #### [facility] [address] Eosinophils (Bld) [#/Vol] 0.2 10*3/uL Normal 0.0-0.45 The [facility] Comment on above: Performed By: #### C MP, MG, PHOS, CBC #### [address] Eosinophils/100 WBC (Bld) 2.9 % Normal . The [facility] Comment on above: Performed By: #### C MP, MG, PHOS, CBC #### [address] Erythrocyte distribution width (RBC) [Ratio] 15.4 % High 11.9-15.3 The [facility] Comment on above: Performed By: #### C MP, MG, PHOS, CBC #### [address] Hematocrit (Bld) [Volume fraction] 44.3 % Normal 34.0-46.4 The [facility] Comment on above: Performed By: #### C MP, MG, PHOS, CBC #### [address] Hemoglobin (Bld) [Mass/Vol] 14.7 g/dL Normal 11.8-15.4 The [facility] Comment on above: Performed By: #### C MP, MG, PHOS, CBC #### [address] Lymphocytes (Bld) [#/Vol] 1.8 10*3/uL Normal 1.00-4.8 The [facility] Comment on above: Performed By: #### C MP, MG, PHOS, CBC #### [address] Lymphocytes/100 WBC (Bld) 24.9 % Normal . The [facility] Comment on above: Performed By: #### C MP, MG, PHOS, CBC #### [address] MCH (RBC) [Entitic mass] 31.4 pg Normal 24.7-34.3 The [facility] Comment on above: Performed By: #### C MP, MG, PHOS, CBC #### [address] MCV (RBC) [Entitic vol] 94.4 fL Normal 80-100 T he [facility] Comment on above: Performed By: #### C MP, MG, PHOS, CBC #### [address] Mean Corpuscular HGB Conc 33.3 g/dL Normal 32.0-35.0 The [facility] Comment on above: Performed By: #### C MP, MG, PHOS, CBC #### [address] Monocytes (Bld) [#/Vol] 0.6 10*3/uL Normal 0.0-0.8 The [facility] Comment on above: Performed By: #### C MP, MG, PHOS, CBC #### [address] Monocytes/100 WBC (Bld) 8.3 % Normal . T [facility] Comment on above: Performed By: #### C MP, MG, PHOS, CBC #### [address] Neutrophils (Bld) [#/Vol] 4.6 10*3/uL Normal 1.8-7.7 The [facility] Comment on above: Performed By: #### C MP, MG, PHOS, CBC #### [address] Neutrophils/100 WBC (Bld) 63.5 % Normal . The [facility] Comment on above: Performed By: #### C MP, MG, PHOS, CBC #### [address] NRBC% 0.0 /100{WBC} Normal 0-0.5 The [facility] Comment on above: Performed By: #### C MP, MG, PHOS, CBC #### [address] Platelet mean volume (Bld) [Entitic vol] 9.5 fL Normal 6.3-10.7 The [facility] Comment on above: Performed By: #### C MP, MG, PHOS, CBC #### [address] Platelets (Bld) [#/Vol] 119 10*3/uL Low 150-450 The [facility] Comment on above: Performed By: #### C MP, MG, PHOS, CBC #### [address] RBC (Bld) [#/Vol] 4.70 10*6/uL Normal 3.60-5.00 The [facility] Comment on above: Performed By: #### C MP, MG, PHOS, CBC #### [address] WBC (Bld) [#/Vol] 7.3 10*3/uL Normal 3.8-11.6 The [facility] Comment on above: Performed By: #### C MP, MG, PHOS, CBC #### [address] Comprehensive Metabolic Pane juan 04-30-2024 Albumin [Mass/Vol] 3.5 g/dL Normal 3.5-5.7 The [facility] Comment on above: Performed By: #### C MP, MG, PHOS, CBC #### [address] Albumin/Globulin [Mass ratio] 1.2 {ratio} Normal The [facility] Comment on above: Performed By: #### C MP, MG, PHOS, CBC #### [address] ALP [Catalytic activity/Vol] 85 U/L Normal 34-104 The [facility] Comment on above: Performed By: #### C MP, MG, PHOS, CBC #### [address] ALT [Catalytic activity/Vol] 16 U/L Normal 7-52 The [facility] Comment on above: Performed By: #### C MP, MG, PHOS, CBC #### [address] Anion gap [Moles/Vol] 10.9 mmol/L Normal 6.0-15.0 Th e [facility] Comment on above: Performed By: #### C MP, MG, PHOS, CBC #### [address] AST [Catalytic activity/Vol] 23 U/L Normal 13-39 The [facility] Comment on above: Performed By: #### C MP, MG, PHOS, CBC #### [address] Bilirubin [Mass/Vol] 0.5 mg/dL Normal 0.3-1.0 The [facility] Comment on above: Performed By: #### C MP, MG, PHOS, CBC #### [address] Calcium [Mass/Vol] 9.3 mg/dL Normal 8.6-10.3 The [facility] Comment on above: Performed By: #### C MP, MG, PHOS, CBC #### [address] Chloride [Moles/Vol] 106 mmol/L Normal 98-107 The [facility] Comment on above: Performed By: #### C MP, MG, PHOS, CBC #### [address] CO2 [Moles/Vol] 26.9 mmol/L Normal 21.0-31.0 The [facility] Comment on above: Performed By: #### C MP, MG, PHOS, CBC #### [address] Creatinine [Mass/Vol] 0.80 mg/dL Normal 0.60-1.20 The [facility] Comment on above: Performed By: #### C MP, MG, PHOS, CBC #### [address] Creatinine Clr Calc Pharmacy 82.38 Normal The [facility] Comment on above: Performed By: #### C MP, MG, PHOS, CBC #### [address] GFR/1.73 sq M.predicted MDRD (S/P/Bld) [Vol rate/Area] mL/min/{1.73_m2} Normal The [facility] Comment on above: Performed By: #### C MP, MG, PHOS, CBC #### [address] Globulin (S) [Mass/Vol] 2.9 g/dL Normal T he [facility] Comment on above: Performed By: #### C MP, MG, PHOS, CBC #### [address] Glucose [Mass/Vol] 130 mg/dL High 70-100 The [facility] Comment on above: Result Comment: [facility] Glucose Reference Range is dependent on time and content of last meal. Glucose of more than 200 mg/dL in a nonstressed, ambulatory subject supports the diagnosis of Diabetes Mellitus. ADA recommended reference range Performed By: #### C MP, MG, PHOS, CBC #### [address] Potassium [Moles/Vol] 3.8 mmol/L Normal 3.5-5.1 The [facility] Comment on above: Performed By: #### C MP, MG, PHOS, CBC #### [address] Protein [Mass/Vol] 6.4 g/dL Normal 6.4-8.9 The [facility] Comment on above: Performed By: #### C MP, MG, PHOS, CBC #### [address] Sodium [Moles/Vol] 140 mmol/L Normal 136-145 The [facility] Comment on above: Performed By: #### C MP, MG, PHOS, CBC #### [address] Urea nitrogen [Mass/Vol] 9 mg/dL Normal 7-25 The [facility] Comment on above: Performed By: #### C MP, MG, PHOS, CBC #### [address] [place] [address] [facility] Creatinine [Mass/volume] in Serum or PlasmaOrdered By: Priscilla Lang on 04-30-2024 Creatinine [Mass/Vol] Creatinine [Mass/v olume] in Serum or Plasma 0.60-1.20 [facility] Eosinophils Auto (Bld) [#/Vo l]Ordered By: Priscilla Lang on 04-30-2024 Eosinophils (Bld) [#/Vol] Automated eosinophil count 0.0-0.45 [facility] Eosinophils/100 WBC Auto (Bl d)Ordered By: Priscilla Lang on 04-30-2024 Eosinophils/100 WBC (Bld) Automated eosinophil % . [facility] Erythrocyte distribution wid th Auto (RBC) [Ratio]Ordered By: Priscilla Lang on 04-30-2024 Erythrocyte distribution width (RBC) [Ratio] Erythrocyte distribution width [Ratio] by Automated count High 11.9-15.3 [facility] Globulin Calc (S) [Mass/Vol] Ordered By: Priscilla Lang on 04-30-2024 Globulin (S) [Mass/Vol] Serum globulin measurement by calculation (mass/volume) [facility] Glucose Glucometer (BldC) [M ass/Vol]Ordered By: Priscilla Lang on 04-30-2024 Glucose [Mass/Vol] Capillary blood gluc ose measurement by glucometer (mass/volume) [facility] Comment on above: Random Glucose Refer ence Range is dependent on time and content of last meal. Glucose of more than 200 mg/dL in a nonstressed, ambulatory subject supports the diagnosis of Diabetes Mellitus. Glucose Poct Glucometerson 0 04-30-2024 Glucose [Mass/Vol] 154 mg/dL Normal The [facility] Comment on above: Result Comment: [facility] Glucose Reference Range is dependent on time and content of last meal. Glucose of more than 200 mg/dL in a nonstressed, ambulatory subject supports the diagnosis of Diabetes Mellitus. PERFORMED BY: [facility] [address] [place] [id number] PATHOLOGIST SALES AGENT [employer] M.D. Performed By: #### C MP, MG, PHOS, CBC #### [facility] [address] [place] [address] [facility] Glucose [Mass/Vol] 134 mg/dL Normal [facility] Comment on above: Result Comment: [place] Glucose Reference Range is dependent on time and content of last meal. Glucose of more than 200 mg/dL in a nonstressed, ambulatory subject supports the diagnosis of Diabetes Mellitus. PERFORMED BY: [facility] [address] [facility] [place] [id number] PATHOLOGIST SALES AGENT [employer] M.D. Performed By: #### T SH3 wRFLX, LIPID #### [facility] [address] [place] [id number] [facility] Glucose [Mass/volume] in Ser um or PlasmaOrdered By: Priscilla Lang on 04-30-2024 Glucose [Mass/Vol] Glucose [Mass/volume ] in Serum or Plasma High 70-100 [facility] Comment on above: ADA recommended refe rence rangeRandom Glucose Reference Range is dependent on time and content of last meal. Glucose of more than 200 mg/dL in a nonstressed, ambulatory subject supports the diagnosis of Diabetes Mellitus. Hematocrit Auto (Bld) [Volum e fraction]Ordered By: Priscilla Lang on 04-30-2024 Hematocrit (Bld) [Volume fraction] Hematocrit [Volume Fraction] of Blood by Automated count 34.0-46.4 [facility] Hemoglobin [Mass/volume] in BloodOrdered By: Priscilla Lang on 04-30-2024 Hemoglobin (Bld) [Mass/Vol] Hemoglobin [Mass/volume] in Blood 11.8-15.4 [facility] Leukocytes [#/volume] correc deepika for nucleated erythrocytes in Blood by Automated counOrdered By: Priscilla Lang on 04-30-2024 WBC corrected for nucl RBC Auto (Bld) [#/Vol] Leukocytes [#/volume] corrected for nucleated erythrocytes in Blood by Automated coun 3.8-11.6 [facility] Lymphocytes Auto (Bld) [#/Vo l]Ordered By: Priscilla Lang on 04-30-2024 Lymphocytes (Bld) [#/Vol] Lymphocytes [#/volume] in Blood by Automated count 1.00-4.8 [facility] Lymphocytes/100 WBC Auto (Bl d)Ordered By: Priscilla Lang on 04-30-2024 Lymphocytes/100 WBC (Bld) Lymphocytes/100 leukocytes in Blood by Automated count . [facility] MCH Auto (RBC) [Entitic mass ]Ordered By: Priscilla Lang on 04-30-2024 MCH (RBC) [Entitic mass] MCH [Entitic mass] by Automated count 24.7-34.3 [facility] MCHC Auto (RBC) [Mass/Vol]Or dered By: Priscilla Lang on 04-30-2024 MCHC (RBC) [Mass/Vol] MCHC [Mass/volume] by Automated count 32.0-35.0 [facility] MCV Auto (RBC) [Entitic vol] Ordered By: Priscilla Lang on 04-30-2024 MCV (RBC) [Entitic vol] MCV [Entitic vol ume] by Automated count 80-100 [facility] Magnesiumon 04-30-2024 Magnesium [Mass/Vol] 1.7 mg/dL Low 1.9-2.7 The [facility] Comment on above: Result Comment: PERF ORMED BY: [place] [address] PATHOLOGIST SALES AGENT [employer] M.D. Performed By: #### C MP, MG, PHOS, CBC #### [facility] [address] [place] [address] Magnesium [Mass/volume] in S elliot or PlasmaOrdered By: Priscilla Lang on 04-30-2024 Magnesium [Mass/Vol] Magnesium [Mass/vol ume] in Serum or Plasma Low 1.9-2.7 [facility] Monocytes Auto (Bld) [#/Vol] Ordered By: Priscilla Lang on 04-30-2024 Monocytes (Bld) [#/Vol] Automated blood monocyte count 0.0-0.8 [facility] Monocytes/100 WBC Auto (Bld) Ordered By: Priscilla Lang on 04-30-2024 Monocytes/100 WBC (Bld) Automated monocyte % . [facility] Neutrophils Auto (Bld) [#/Vo l]Ordered By: Priscilla Lang on 04-30-2024 Neutrophils (Bld) [#/Vol] Neutrophils [#/volume] in Blood by Automated count 1.8-7.7 [facility] Neutrophils/100 WBC Auto (Bl d)Ordered By: Priscilla Lang on 04-30-2024 Neutrophils/100 WBC (Bld) Automated neutrophil % . [facility] No Panel InformationOrdered By: Priscilla Lang on 04-30-2024 Estimated GFR (CKD-EPI) > 60.0 mL/Min [facility] Pharmacy Creatinine Clearance (Chem 82.38 [facility] Nucleated erythrocytes [Pres ence] in Blood by Automated countOrdered By: Priscilla Lang on 04-30-2024 Nucleated RBC Auto Ql (Bld) Nucleated erythrocytes [Presence] in Blood by Automated count 0-0.5 [facility] Phosphate [Mass/volume] in S elliot or PlasmaOrdered By: Priscilla Lang on 04-30-2024 Phosphate [Mass/Vol] Phosphate [Mass/vol ume] in Serum or Plasma 2.5-4.5 [facility] Phosphoruson 04-30-2024 Phosphate [Mass/Vol] 2.9 mg/dL Normal 2.5-4.5 [facility] Comment on above: Performed By: #### C MP, MG, PHOS, CBC #### [address] Platelet mean volume Auto (B ld) [Entitic vol]Ordered By: Priscilla Lang on 04-30-2024 Platelet mean volume (Bld) [Entitic vol] Platelet mean volume [Entitic volume] in Blood by Automated count 6.3-10.7 [facility] Platelets Auto (Bld) [#/Vol] Ordered By: Priscilla Lang on 04-30-2024 Platelets (Bld) [#/Vol] Platelets [#/vol ume] in Blood by Automated count Low 150-450 [facility] Potassium [Moles/volume] in Serum or PlasmaOrdered By: Priscilla Lang on 04-30-2024 Potassium [Moles/Vol] Potassium [Moles/v olume] in Serum or Plasma 3.5-5.1 [facility] Protein [Mass/volume] in Ser um or PlasmaOrdered By: Priscilla Lang on 04-30-2024 Protein [Mass/Vol] Protein [Mass/volume ] in Serum or Plasma 6.4-8.9 [facility] RBC Auto (Bld) [#/Vol]Ordere d By: Priscilla Lang on 04-30-2024 RBC (Bld) [#/Vol] Erythrocytes [#/volu me] in Blood by Automated count 3.60-5.00 [facility] Serum or plasma albumin/glob ulin mass ratioOrdered By: Priscilla Lang on 04-30-2024 Albumin/Globulin [Mass ratio] Serum or plasma albumin/globulin mass ratio [facility] Serum or plasma anion gap de terminationOrdered By: Priscilla Lang on 04-30-2024 Anion gap [Moles/Vol] Serum or plasma an ion gap determination 6.0-15.0 [facility] Sodium [Moles/volume] in Ser um or PlasmaOrdered By: Priscilla Lang on 04-30-2024 Sodium [Moles/Vol] Sodium [Moles/volume ] in Serum or Plasma 136-145 [facility] Urea nitrogen [Mass/volume] in Serum or PlasmaOrdered By: Priscilla Lang on 04-30-2024 Urea nitrogen [Mass/Vol] Urea nitrogen [Mass/volume] in Serum or Plasma 7-25 [facility] WBC Auto (Bld) [#/Vol]Ordere d By: Priscilla Lang on 04-30-2024 WBC (Bld) [#/Vol] Leukocytes [#/volume ] in Blood by Automated count 3.8-11.6 [facility] Amphetamine Screen Ql (U)Ord ered By: Priscilla Lang on 04-29-2024 Amphetamines Ql (U) Amphetamines screen Negativ e [facility] Barbiturates [Presence] in U rine by Screen methodOrdered By: Priscilla Lang on 04-29-2024 Barbiturates Screen Ql (U) Barbiturates [Presence] in Urine by Screen method Negative [facility] Basic Metabolic Panelon 01-0 Anion gap [Moles/Vol] 11.3 mmol/L Normal 6.0-15.0 Th e [facility] Comment on above: Order Comment: FASTI NG N Performed By: #### L IPID, BMP #### [facility] [address] Calcium [Mass/Vol] 8.9 mg/dL Normal 8.6-10.3 [facility] Comment on above: Order Comment: FASTI NG N Performed By: #### L IPID, BMP #### [facility] [address] [place] [address] [place] Chloride [Moles/Vol] 106 mmol/L Normal 98-107 [facility] Comment on above: Order Comment: FASTI NG N Performed By: #### L IPID, BMP #### [facility] [address] [place] [address] [place] CO2 [Moles/Vol] 25.2 mmol/L Normal 21.0-31.0 The [facility] Comment on above: Order Comment: FASTI NG N Performed By: #### L IPID, BMP #### [facility] [address] [place] [address] [place] Creatinine [Mass/Vol] 0.85 mg/dL Normal 0.60-1.20 [facility] Comment on above: Order Comment: FASTI NG N Performed By: #### L IPID, BMP #### [facility] [address] [place] [address] [place] Creatinine Clr Calc Pharmacy 77.21 Normal [facility] Comment on above: Order Comment: FASTI NG N Performed By: #### L IPID, BMP #### [facility] [address] [place] [id number] [place] GFR/1.73 sq M.predicted MDRD (S/P/Bld) [Vol rate/Area] mL/min/{1.73_m2} Normal [facility] Comment on above: Order Comment: FASTI NG N Performed By: #### L IPID, BMP #### [facility] [address] Glucose [Mass/Vol] 206 mg/dL High 70-100 [facility] Comment on above: Order Comment: FASTI NG N Result Comment: [place] Glucose Reference Range is dependent on time and content of last meal. Glucose of more than 200 mg/dL in a nonstressed, ambulatory subject supports the diagnosis of Diabetes Mellitus. ADA recommended reference range Performed By: #### L IPID, BMP #### [facility] [address] Potassium [Moles/Vol] 3.5 mmol/L Normal 3.5-5.1 [facility] Comment on above: Order Comment: FASTI NG N Performed By: #### L IPID, BMP #### [address] Sodium [Moles/Vol] 139 mmol/L Normal 136-145 [facility] Comment on above: Order Comment: FASTI NG N Performed By: #### L IPID, BMP #### [address] Urea nitrogen [Mass/Vol] 9 mg/dL Normal 7-25 [facility] Comment on above: Order Comment: FASTI NG N Performed By: #### L IPID, BMP #### [address] Benzodiazepines Screen Ql (U )Ordered By: Priscilla Lang on 04-29-2024 Benzodiazepines Ql (U) Benzodiazepines [Presence] in Urine by Screen method Negative [facility] Benzoylecgonine [Presence] i n Urine by Screen methodOrdered By: Priscilla Lang on 04-29-2024 Benzoylecgonine Screen Ql (U) Benzoylecgonine [Presence] in Urine by Screen method Negative [facility] Cannabinoids [Presence] in U rine by Screen methodOrdered By: Priscilla Lang on 04-29-2024 Cannabinoids Screen Ql (U) Cannabinoids [Presence] in Urine by Screen method Negative [facility] Comment on above: These are unconfirme d results and should not be used for legal purposes. Drug Cut-Off Concentration: AMPH 1000 ng/mL KENDRICK 200 ng/mL HEATHER 200 ng/mL COCM 300 ng/mL OP 300 ng/mL PCP 25 ng/mL THC 20 ng/mL Cholesterol [Mass/volume] in Serum or PlasmaOrdered By: Jori Hearn on 04-29-2024 Cholesterol [Mass/Vol] Cholesterol [Mass/volume] in Serum or Plasma Low 140-200 [facility] Comment on above: Chol less than 200 m g/dl low riskChol 201-239 mg/dl borderline riskChol 240 mg/dl and greater high risk Cholesterol in HDL [Mass/vol ume] in Serum or PlasmaOrdered By: Jori Hearn on 04-29-2024 Cholesterol in HDL [Mass/Vol] Serum or plasma high density lipoprotein (HDL) cholesterol measurement [facility] Comment on above: HDL CHOL ATP-III CLA SSIFICATION Cardiovascular RiskHDL > or equal to 60 mg/dL LOWHDL < 40 mg/dL HIGH Cholesterol in LDL Calc [Mas s/Vol]Ordered By: Jori Hearn on 04-29-2024 Cholesterol in LDL [Mass/Vol] Cholesterol in LDL [Mass/volume] in Serum or Plasma by calculation 0-100 [facility] Comment on above: LDL ATP III CLASSIFI CATIONLDL less than 100 mg/dL OptimalLDL 100-129 mg/dL Near or above optimalLDL 130-159 mg/dL Borderline highLDL 160-189 mg/dL HighLDL greater than 189 mg/dL Very high Cholesterol in VLDL Calc [Ma ss/Vol]Ordered By: Jori Hearn on 04-29-2024 Cholesterol in VLDL [Mass/Vol] Cholesterol in VLDL [Mass/volume] in Serum or Plasma by calculation [facility] Drug Screen,Urineon 04-29-19 25 Amphetamine Screen,Urine Negative Normal Negative [facility] Comment on above: Performed By: #### T SH3 wRFLX, LIPID #### [facility] [address] [place] [address] [place] Barbiturate Screen,Urine Negative Normal Negative [facility] Comment on above: Performed By: #### T SH3 wRFLX, LIPID #### [facility] [address] [place] [address] [place] Benzodiazepines Screen,Urine Negative Normal Negative [facility] Comment on above: Performed By: #### T SH3 wRFLX, LIPID #### [address] Cannabinoid Screen,Urine Negative Normal Negative [facility] Comment on above: Result Comment: Thes e are unconfirmed results and should not be used for legal purposes. Drug Cut-Off Concentration: AMPH 1000 ng/mL KENDRICK 200 ng/mL HEATHER 200 ng/mL COCM 300 ng/mL OP 300 ng/mL PCP 25 ng/mL THC 20 ng/mL PERFORMED BY: [place] [address] PATHOLOGIST SALES AG[employer] M.D. Performed By: #### T SH3 wRFLX, LIPID #### [address] Cocaine Screen,Urine Negative Normal Negative [facility] Comment on above: Performed By: #### T SH3 wRFLX, LIPID #### [address] Opiate Screen,Urine Negative Normal Negative [facility] Comment on above: Performed By: #### T SH3 wRFLX, LIPID #### [address] Phencyclidine Screen,Urine Negative Normal Negative [facility] Comment on above: Performed By: #### T SH3 wRFLX, LIPID #### [address] Glucose Poct Glucometerson 0 04-29-2024 Glucose [Mass/Vol] 165 mg/dL Normal [facility] Comment on above: Result Comment: [facility] Glucose Reference Range is dependent on time and content of last meal. Glucose of more than 200 mg/dL in a nonstressed, ambulatory subject supports the diagnosis of Diabetes Mellitus. PERFORMED BY: [place] [address] PATHOLOGIST SALES AGENT INSURANCE LE MACE M.D. Performed By: #### T SH3 wRFLX, LIPID #### [address] Commemt1 Glu2: Cleaned Meter Normal [facility] Comment on above: Result Comment: PERF ORMED BY: [place] [address] PATHOLOGIST SALES AGENT INSURANCE LE MACE M.D. Performed By: #### C MP, MG, PHOS, CBC #### [facility] [address] [id number] [place] Glucose [Mass/Vol] 188 mg/dL Normal The [facility] Comment on above: Result Comment: [place] om Glucose Reference Range is dependent on time and content of last meal. Glucose of more than 200 mg/dL in a nonstressed, ambulatory subject supports the diagnosis of Diabetes Mellitus. Performed By: #### C MP, MG, PHOS, CBC #### [place] [id number] [facility] Commemt1 Glu2: Cleaned Meter Normal [facility] Comment on above: Result Comment: PERF ORMED BY: [place] [address] PATHOLOGIST SALES AGENT INSURANCE LE MACE M.D. Performed By: #### T SH3 wRFLX, LIPID #### [place] [address] [place] Glucose [Mass/Vol] 192 mg/dL Normal The [facility] Comment on above: Result Comment: [place] om Glucose Reference Range is dependent on time and content of last meal. Glucose of more than 200 mg/dL in a nonstressed, ambulatory subject supports the diagnosis of Diabetes Mellitus. Performed By: #### T SH3 wRFLX, LIPID #### [place] [id number] [place] Glucose [Mass/Vol] 210 mg/dL Normal The [facility] Comment on above: Result Comment: [place] om Glucose Reference Range is dependent on time and content of last meal. Glucose of more than 200 mg/dL in a nonstressed, ambulatory subject supports the diagnosis of Diabetes Mellitus. PERFORMED BY: [place] [address] PATHOLOGIST SALES AGENT INSURANCE LE MACE M.D. Performed By: #### T SH3 wRFLX, LIPID #### [facility] [address] Lipid Panelon 04-29-2024 Cholesterol [Mass/Vol] 106 mg/dL Low 140-200 Th e [facility] Comment on above: Order Comment: FASTI NG N Result Comment: Chol less than 200 mg/dl low risk Chol 201-239 mg/dl borderline risk Chol 240 mg/dl and greater high risk Performed By: #### L IPID, BMP #### [address] Cholesterol in HDL [Mass/Vol] 31 mg/dL Normal 23-92 The [facility] Comment on above: Order Comment: FASTI NG N Result Comment: HDL CHOL ATP-III CLASSIFICATION Cardiovascular Risk HDL > or equal to 60 mg/dL LOW HDL < 40 mg/dL HIGH Performed By: #### L IPID, BMP #### [address] Cholesterol.total/Monica sterol in HDL [Mass ratio] 3.4 {ratio} Normal <5.0 The [facility] Comment on above: Order Comment: FASTI NG N Result Comment: PERF ORMED BY: [place] [address] PATHOLOGIST SALES AGENT INSURANCE LE MACE M.D. Performed By: #### L IPID, BMP #### [address] LDL Cholesterol,Calculated 45 mg/dL Normal 0-100 [facility] Comment on above: Order Comment: FASTI NG N Result Comment: LDL ATP III CLASSIFICATION LDL less than 100 mg/dL Optimal LDL 100-129 mg/dL Near or above optimal LDL 130-159 mg/dL Borderline high LDL 160-189 mg/dL High LDL greater than 189 mg/dL Very high Performed By: #### L IPID, BMP #### [place] [address] [place] Triglyceride w/Reflex 151 mg/dL High 0-149 The [facility] Comment on above: Order Comment: FASTI NG N Result Comment: TRIG ATP III CLASSIFICATION TRIG less than 150 mg/dL Normal TRIG 150-199 mg/dL Borderline high TRIG 200-500 mg/dL High TRIG greater than 500 mg/dL Very high Standard traceable to the Center for Disease Conrtrol and Prevention (CDC) test method. Performed By: #### L IPID, BMP #### [facility] [address] VLDL CHOLESTEROL 30 mg/dL Normal The [facility] Comment on above: Order Comment: FASTI NG N Performed By: #### L IPID, BMP #### [facility] [address] [id number] [facility] No Panel InformationOrdered By: Priscilla Lang on 04-29-2024 Bedside Glucose Comment Glu2: cleaned meter [facility] Opiates [Presence] in Urine by Screen methodOrdered By: Priscilla Lang on 04-29-2024 Opiates Screen Ql (U) Opiates [Presence] in Urine by Screen method Negative [facility] Phencyclidine Screen Ql (U)O rdered By: Priscilla Lang on 04-29-2024 Phencyclidine Ql (U) Phencyclidine [Pres ence] in Urine by Screen method Negative [facility] Serum or plasma total choles terol/high density lipoprotein (HDL) cholesterol mass ratOrdered By: Jori Hearn on 04-29-2024 Cholesterol.total/Monica sterol in HDL [Mass ratio] Serum or plasma total cholesterol/high density lipoprotein (HDL) cholesterol mass rat <5.0 [facility] Triglyceride [Mass/volume] i n Serum or PlasmaOrdered By: Jori Hearn on 04-29-2024 Triglyceride [Mass/Vol] Triglyceride [Mass/volume] in Serum or Plasma High 0-149 [facility] Comment on above: TRIG ATP III CLASSIF ICATIONTRIG less than 150 mg/dL NormalTRIG 150-199 mg/dL Borderline highTRIG 200-500 mg/dL High TRIG greater than 500 mg/dL Very highStandard traceable to the Center for Disease Conrtrol and Prevention (CDC) test method. Urine Cultureon 04-29-2024 Bacteria identified Cx Nom (U) 15,000 colonies/ml mixed bacterial skin contaminants 2 Days PERFORMED BY: [facility] [address] [place] [address] PATHOLOGIST SALES AGENT INSURANCE LE MACE M.D. Normal The [facility] Comment on above: Performed By: #### T SH3 wRFLX, LIPID #### [address] Urine cultureOrdered By: Bhargav Lang on 04-29-2024 Bacteria identified Cx Nom (U) Urine culture [facility] Bacteria identified Cx Nom (U) Urine culture [facility] Alanine aminotransferase [En zymatic activity/volume] in Serum or PlasmaOrdered By: Wesley Villafuerte on 04-28-2024 ALT [Catalytic activity/Vol] Alanine aminotransferase [Enzymatic activity/volume] in Serum or Plasma 752 [facility] Albumin [Mass/volume] in Ser um or Plasma by Bromocresol green (BCG) dye binding methoOrdered By: Wesley Villafuerte on 04-28-2024 Albumin BCG dye [Mass/Vol] Albumin [Mass/volume] in Serum or Plasma by Bromocresol green (BCG) dye binding metho 3.5-5.7 [facility] Alkaline phosphatase [Enzyma tic activity/volume] in Serum or PlasmaOrdered By: Wesley Villafuerte on 04-28-2024 ALP [Catalytic activity/Vol] Alkaline phosphatase [Enzymatic activity/volume] in Serum or Plasma 34-104 [facility] Anisocytosis LM Ql (Bld)Orde red By: Wesley Villafuerte on 04-28-2024 Anisocytosis Ql (Bld) Anisocytosis [Pres ence] in Blood by Light microscopy [facility] Appearance of UrineOrdered B y: Wesley Villafuerte on 04-28-2024 Appearance (U) Urine appearance Clear [facility] Aspartate aminotransferase [ Enzymatic activity/volume] in Serum or PlasmaOrdered By: Wesley Villafuerte on 04-28-2024 AST [Catalytic activity/Vol] Aspartate aminotransferase [Enzymatic activity/volume] in Serum or Plasma 13-39 [facility] B-Type Natriuretic Peptideon 04-28-2024 Natriuretic peptide B (Bld) [Mass/Vol] 25.0 pg/mL Normal 5-100 [facility] Comment on above: Result Comment: PERF ORMED BY: [address] [address] PATHOLOGIST SALES AGENT INSURANCE LE MACE M.D. Performed By: #### T SH3 wRFLX, LIPID #### [facility] [address] [place] [address] [place] Bacteria [Presence] in Urine by AutomatedOrdered By: Wesley Villafuerte on 04-28-2024 Bacteria Auto Ql (U) Bacteria [Presence] in Urine by Automated None Seen [facility] Basophils Auto (Bld) [#/Vol] Ordered By: Wesley Villafuerte on 04-28-2024 Basophils (Bld) [#/Vol] Automated basophil count 0.0-0.2 [facility] Basophils/100 WBC Auto (Bld) Ordered By: Wesley Villafuerte on 04-28-2024 Basophils/100 WBC (Bld) Automated basophil % . [facility] Bilirubin Test strip Ql (U)O rdered By: Wesley Villafuerte on 04-28-2024 Bilirubin Ql (U) Bilirubin.total [Presence] in Urine by Test strip Negative [facility] Bilirubin.total [Mass/volume ] in Serum or PlasmaOrdered By: Wesley Villafuerte on 04-28-2024 Bilirubin [Mass/Vol] Bilirubin.total [Mass/volume] in Serum or Plasma 0.3-1.0 [facility] BioFire Not Detectedon 04-28 BioFire Not Detected Not detected Normal Not Detecte [facility] Comment on above: Result Comment: This is a duplicate RP2.1 COVID (PCR) result to be used for statistical tracking purpose only. PERFORMED BY: [address] [address] PATHOLOGIST SALES AGENT INSURANCE LE MACE M.D. Performed By: #### T SH3 wRFLX, LIPID #### [facility] [address] [place] [address] [place] COVID-19 Detected/Not Detect edOrdered By: Wesley Villafuerte on 04-28-2024 SARS-CoV-2 (COVID-19) RNA TEJINDER+non-probe Ql (Nph) Not detected Not Detecte [facility] Comment on above: This is a duplicate RP2.1 COVID (PCR) result to be used for statistical tracking purpose only. CT angio headon 04-28-2024 CT angio head [facility] Main Platter [address] [place], [place] [id number] CT Scan Report Signed Patient: Taye Gay MR#: [id number] 19 : 1955 Acct:[id number] Age/Sex: 68 / F ADM Date: 04/28/24 Loc: ER Room: Type: [facility] ER Attending Dr: Copies to: Wesley Villafuerte PA-C Ordering Provider: Wesley Villafuerte PA-C Date of Service: 04/28/24 CT/CT angio head: weakness ([id number]) CT/CT angio neck: weakness ([id number]) CT/CT head/brain wo con: weakness CT head/brain [...] Oz Bowling M.D.04/28/2024 9:44 PM Dictation Location: [place] [address] Transcribed By: AMY 04/28/242143 Dictated By: Oz Bowling II, MD 04/28/242129 Signed By: 04/28/242143 Normal [facility] Calcium [Mass/volume] in Ser um or PlasmaOrdered By: Wesley Villafuerte on 04-28-2024 Calcium [Mass/Vol] Calcium [Mass/volume ] in Serum or Plasma 8.6-10.3 [facility] Carbon dioxide, total [Moles /volume] in Serum or PlasmaOrdered By: Wesley Villafuerte on 04-28-2024 CO2 [Moles/Vol] Carbon dioxide, tota l [Moles/volume] in Serum or Plasma 21.0-31.0 [facility] Chloride [Moles/volume] in S elliot or PlasmaOrdered By: Wesley Villafuerte on 04-28-2024 Chloride [Moles/Vol] Chloride [Moles/vol ume] in Serum or Plasma 98-107 [facility] Color Auto (U)Ordered By: Colin Villafuerte on 04-28-2024 Color (U) Color of Urine by Auto Yellow Fi [facility] Comprehensive Metabolic Pane juan 04-28-2024 Albumin [Mass/Vol] 3.7 g/dL Normal 3.5-5.7 [facility] Comment on above: Performed By: #### T SH3 wRFLX, LIPID #### [address] Albumin/Globulin [Mass ratio] 1.2 {ratio} Normal [facility] Comment on above: Performed By: #### T SH3 wRFLX, LIPID #### [address] ALP [Catalytic activity/Vol] 86 U/L Normal 34-104 [facility] Comment on above: Performed By: #### T SH3 wRFLX, LIPID #### [address] ALT [Catalytic activity/Vol] 20 U/L Normal 7-52 [facility] Comment on above: Performed By: #### T SH3 wRFLX, LIPID #### [address] Anion gap [Moles/Vol] 12.7 mmol/L Normal 6.0-15.0 [facility] Comment on above: Performed By: #### T SH3 wRFLX, LIPID #### [address] AST [Catalytic activity/Vol] 25 U/L Normal 13-39 [facility] Comment on above: Performed By: #### T SH3 wRFLX, LIPID #### [address] Bilirubin [Mass/Vol] 0.3 mg/dL Normal 0.3-1.0 [facility] Comment on above: Performed By: #### T SH3 wRFLX, LIPID #### [address] Calcium [Mass/Vol] 9.7 mg/dL Normal 8.6-10.3 [facility] Comment on above: Performed By: #### T SH3 wRFLX, LIPID #### [place] [address] [place] Chloride [Moles/Vol] 104 mmol/L Normal 98-107 [facility] Comment on above: Performed By: #### T SH3 wRFLX, LIPID #### [address] CO2 [Moles/Vol] 24.2 mmol/L Normal 21.0-31.0 [facility] Comment on above: Performed By: #### T SH3 wRFLX, LIPID #### [address] Creatinine [Mass/Vol] 0.85 mg/dL Normal 0.60-1.20 [facility] Comment on above: Performed By: #### T SH3 wRFLX, LIPID #### [address] Creatinine Clr Calc Pharmacy 77.21 Normal [facility] Comment on above: Performed By: #### T SH3 wRFLX, LIPID #### [place] [address] [place] GFR/1.73 sq M.predicted MDRD (S/P/Bld) [Vol rate/Area] mL/min/{1.73_m2} Normal The [facility] Comment on above: Performed By: #### T SH3 wRFLX, LIPID #### [address] Globulin (S) [Mass/Vol] 3.1 g/dL Normal T [facility] Comment on above: Performed By: #### T SH3 wRFLX, LIPID #### [address] Glucose [Mass/Vol] 231 mg/dL High 70-100 [facility] Comment on above: Result Comment: [place] Glucose Reference Range is dependent on time and content of last meal. Glucose of more than 200 mg/dL in a nonstressed, ambulatory subject supports the diagnosis of Diabetes Mellitus. ADA recommended reference range Performed By: #### T SH3 wRFLX, LIPID #### [address] Potassium [Moles/Vol] 3.9 mmol/L Normal 3.5-5.1 [facility] Comment on above: Result Comment: Hemo lysis is present at a level that could interfere with the result. Contact lab if redraw is required Performed By: #### T SH3 wRFLX, LIPID #### [facility] [address] [place] [address] [place] Protein [Mass/Vol] 6.8 g/dL Normal 6.4-8.9 [facility] Comment on above: Performed By: #### T SH3 wRFLX, LIPID #### [place] [address] [place] Sodium [Moles/Vol] 137 mmol/L Normal 136-145 [facility] Comment on above: Performed By: #### T SH3 wRFLX, LIPID #### [place] [address] [place] Urea nitrogen [Mass/Vol] 11 mg/dL Normal 7-25 [facility] Comment on above: Performed By: #### T SH3 wRFLX, LIPID #### [place] [id number] [place] Creatinine [Mass/volume] in Serum or PlasmaOrdered By: Wesley Villafuerte on 04-28-2024 Creatinine [Mass/Vol] Creatinine [Mass/v olume] in Serum or Plasma 0.60-1.20 [facility] Dipstick and Microscopicon 1 Appearance (U) Clear Normal Clear The [facility] Comment on above: Order Comment: Name Collection Type:: Clean-Voided Midstream Performed By: #### A DDONUAPLUS #### [place] [id number] [place] Bacteria,Urine Rare Normal None Seen [facility] Comment on above: Order Comment: Name Collection Type:: Clean-Voided Midstream Performed By: #### A DDONUAPLUS #### [place] [id number] [place] Bilirubin,Urine Negative Normal Negative [facility] Comment on above: Order Comment: Name Collection Type:: Clean-Voided Midstream Performed By: #### A DDONUAPLUS #### [place] [address] [place] Budding Yeast,Urine Rare High None Seen [facility] Comment on above: Order Comment: Name Collection Type:: Clean-Voided Midstream Result Comment: PERF ORMED BY: [place] [address] PATHOLOGIST SALES AGENT INSURANCE LE MACE M.D. Performed By: #### A DDONUAPLUS #### [address] Color (U) Light-Yellow Normal Yellow The [facility] Comment on above: Order Comment: Name Collection Type:: Clean-Voided Midstream Performed By: #### A DDONUAPLUS #### [address] Glucose Ql (U) >= High Normal [facility] Comment on above: Order Comment: Name Collection Type:: Clean-Voided Midstream Performed By: #### A DDONUAPLUS #### [place] [address] [place] Hyaline Casts,Urine 0 [LPF] Normal 0-8 [facility] Comment on above: Order Comment: Name Collection Type:: Clean-Voided Midstream Performed By: #### A DDONUAPLUS #### [place] [address] [place] Ketones Ql (U) Negative Normal Negative [facility] Comment on above: Order Comment: Name Collection Type:: Clean-Voided Midstream Performed By: #### A DDONUAPLUS #### [place] [address] [place] Leukocyte esterase Test strip Ql (U) Negative Normal Negative [facility] Comment on above: Order Comment: Name Collection Type:: Clean-Voided Midstream Performed By: #### A DDONUAPLUS #### [place] [address] [place] Nitrite,Urine Negative Normal Negative The [facility] Comment on above: Order Comment: Name Collection Type:: Clean-Voided Midstream Performed By: #### A DDONUAPLUS #### [address] Occult Blood,Urine 2+ High Negative [facility] Comment on above: Order Comment: Name Collection Type:: Clean-Voided Midstream Result Comment: PERF ORMED BY: [place] [address] PATHOLOGIST SALES AGENT INS[employer]ANCE LE MACE M.D. Performed By: #### A DDONUAPLUS #### [address] pH (U) 5.5 [pH] Normal 5.0-9.0 [facility] Comment on above: Order Comment: Name Collection Type:: Clean-Voided Midstream Performed By: #### A DDONUAPLUS #### [place] [address] [place] Protein,Urine Negative Normal Negative The [facility] Comment on above: Order Comment: Name Collection Type:: Clean-Voided Midstream Performed By: #### A DDONUAPLUS #### [address] RBC,Urine 10 [HPF] High 0-4 [facility] Comment on above: Order Comment: Name Collection Type:: Clean-Voided Midstream Performed By: #### A DDONUAPLUS #### [place] [address] [place] Specificy Crowder,Urine 1.038 High 1.00 1-1.03 0 [facility] Comment on above: Order Comment: Name Collection Type:: Clean-Voided Midstream Performed By: #### A DDONUAPLUS #### [place] [address] [place] Squamous Epithelial Cell,Urine 3 [HPF] High 0-2 [facility] Comment on above: Order Comment: Name Collection Type:: Clean-Voided Midstream Performed By: #### A DDONUAPLUS #### [place] [address] [place] Urobilinogen,Urine Normal Normal Normal [facility] Comment on above: Order Comment: Name Collection Type:: Clean-Voided Midstream Performed By: #### A DDONUAPLUS #### [facility] [address] [place] [address] WBC,Urine 5 [HPF] High 0-4 [facility] Comment on above: Order Comment: Name Collection Type:: Clean-Voided Midstream Performed By: #### A DDONUAPLUS #### [facility] [address] [place] [address] ECG 12 lead ECGon 04-28-2024 ECG 12 lead ECG [facility] Main Platter [address] [place] [address] Electrocardiograph Report Signed Patient: Taye Gay MR#: [id number] [birth year] : 1955 Acct:[id number] Age/Sex: 68 / F ADM Date: 04/28/24 Loc: Room: [address] [place] [address] Type: ADM IN Attending Dr: Jori Hearn [...] Jori Batista MD 05/23 0144 Normal [facility] Eosinophils Auto (Bld) [#/Vo l]Ordered By: Wesley Villafuerte on 04-28-2024 Eosinophils (Bld) [#/Vol] Automated eosinophil count 0.0-0.45 [facility] Eosinophils/100 WBC Auto (Bl d)Ordered By: Wesley Villafuerte on 04-28-2024 Eosinophils/100 WBC (Bld) Automated eosinophil % . [facility] Epithelial cells.squamous [# /area] in Urine sediment by Automated countOrdered By: Wesley Villafuerte on 04-28-2024 Epithelial cells.squamous Auto (Urine sed) [#/Area] Epithelial cells.squamous [#/area] in Urine sediment by Automated count High 0-2 [facility] Erythrocyte distribution wid th Auto (RBC) [Ratio]Ordered By: Wesley Villafuerte on 04-28-2024 Erythrocyte distribution width (RBC) [Ratio] Erythrocyte distribution width [Ratio] by Automated count High 11.9-15.3 [facility] Erythrocyte morphology findi ng [Identifier] in BloodOrdered By: Wesley Villafuerte on 04-28-2024 RBC morphology finding Nom (Bld) RBC morphology [facility] Erythrocytes [#/area] in Uri ne sediment by Automated countOrdered By: Wesley Villafuerte on 04-28-2024 RBC Auto (Urine sed) [#/Area] Erythrocytes [#/area] in Urine sediment by Automated count High 0-4 [facility] Globulin Calc (S) [Mass/Vol] Ordered By: Wesley Villafuerte on 04-28-2024 Globulin (S) [Mass/Vol] Serum globulin measurement by calculation (mass/volume) [facility] Glucose [Mass/volume] in Ser um or PlasmaOrdered By: Wesley Villafuerte on 04-28-2024 Glucose [Mass/Vol] Glucose [Mass/volume ] in Serum or Plasma High 70-100 [facility] Comment on above: ADA recommended refe rence [...] in Urine by Test strip High Normal [facility] HbA1c HPLC (Bld) [Mass fract ion]on 04-28-2024 HbA1c (Bld) [Mass fraction] Hemoglobin A1c/Hemoglobin.total in Blood by HPLC [facility] Hematocrit Auto (Bld) [Volum e fraction]Ordered By: Wesley Villafuerte on 04-28-2024 Hematocrit (Bld) [Volume fraction] Hematocrit [Volume Fraction] of Blood by Automated count High 34.0-46.4 [facility] Hemoglobin Test strip Ql (U) Ordered By: Wesley Villafuerte on 04-28-2024 Hemoglobin Ql (U) Hemoglobin [Presence ] in Urine by Test strip High Negative [facility] Hemoglobin [Mass/volume] in BloodOrdered By: Wesley Villafuerte on 04-28-2024 Hemoglobin (Bld) [Mass/Vol] Hemoglobin [Mass/volume] in Blood High 11.8-15.4 [facility] Hyaline casts [#/area] in Ur ine sediment by Automated countOrdered By: Wesley Villafuerte on 04-28-2024 Hyaline casts Auto (Urine sed) [#/Area] Hyaline casts [#/area] in Urine sediment by Automated count 0-8 [facility] INR in Platelet poor plasma by Coagulation assayOrdered By: Wesley Villafuerte on 04-28-2024 INR Coag (PPP) [Relative time] INR in Platelet poor plasma by Coagulation assay [facility] Comment on above: INR Therapeutic Rang e [...] i n Urine by Test strip Negative [facility] Leukocyte esterase [Presence ] in Urine by Test stripOrdered By: Wesley Villafuerte on 04-28-2024 Leukocyte esterase Test strip Ql (U) Leukocyte esterase [Presence] in Urine by Test strip Negative [facility] Leukocytes [#/area] in Urine sediment by Automated countOrdered By: Wesley Villafuerte on 04-28-2024 WBC Auto (Urine sed) [#/Area] Leukocytes [#/area] in Urine sediment by Automated count High 0-4 [facility] Leukocytes [#/volume] correc deepika for nucleated erythrocytes in Blood by Automated counOrdered By: Wesley Villafuerte on 04-28-2024 WBC corrected for nucl RBC Auto (Bld) [#/Vol] Leukocytes [#/volume] corrected for nucleated erythrocytes in Blood by Automated coun 3.8-11.6 [facility] Lymphocytes Auto (Bld) [#/Vo l]Ordered By: Wesley Villafuerte on 04-28-2024 Lymphocytes (Bld) [#/Vol] Lymphocytes [#/volume] in Blood by Automated count 1.00-4.8 [facility] Lymphocytes/100 WBC Auto (Bl d)Ordered By: Wesley Villafuerte on 04-28-2024 Lymphocytes/100 WBC (Bld) Lymphocytes/100 leukocytes in Blood by Automated count . [facility] MCH Auto (RBC) [Entitic mass ]Ordered By: Wesley Villafuerte on 04-28-2024 MCH (RBC) [Entitic mass] MCH [Entitic mass] by Automated count 24.7-34.3 [facility] MCHC Auto (RBC) [Mass/Vol]Or dered By: Wesley Villafuerte on 04-28-2024 MCHC (RBC) [Mass/Vol] MCHC [Mass/volume] by Automated count 32.0-35.0 [facility] MCV Auto (RBC) [Entitic vol] Ordered By: Wesley Villafuerte on 04-28-2024 MCV (RBC) [Entitic vol] MCV [Entitic vol ume] by Automated count 80-100 [facility] Magnesiumon 04-28-2024 Magnesium [Mass/Vol] 1.7 mg/dL Low 1.9-2.7 [facility] Comment on above: Result Comment: PERF ORMED BY: [place] [address] PATHOLOGIST SALES AGENT [employer] MACE M.D. Performed By: #### T SH3 wRFLX, LIPID #### [address] Magnesium [Mass/volume] in S elliot or PlasmaOrdered By: Wesley Villafuerte on 04-28-2024 Magnesium [Mass/Vol] Magnesium [Mass/vol ume] in Serum or Plasma Low 1.9-2.7 [facility] Monocyte distribution width [Entitic volume] in Blood by AutomatedOrdered By: Wesley Villafuerte on 04-28-2024 Monocyte distribution width Auto (Bld) [Entitic vol] Monocyte distribution width [Entitic volume] in Blood by Automated High 0.00-20.00 [facility] Comment on above: For adults in ED, MD W > 20.0 may be associated with a higher risk of sepsis during the first 12 hrs of hospital admission Monocytes Auto (Bld) [#/Vol] Ordered By: Wesley Villafuerte on 04-28-2024 Monocytes (Bld) [#/Vol] Automated blood monocyte count 0.0-0.8 [facility] Monocytes/100 WBC Auto (Bld) Ordered By: Wesley Villafuerte on 04-28-2024 Monocytes/100 WBC (Bld) Automated monocyte % . [facility] Natriuretic peptide B [Mass/ Vol]Ordered By: Wesley Villafuerte on 04-28-2024 Natriuretic peptide B (Bld) [Mass/Vol] BNP ser/plas 5-100 [facility] Neutrophils Auto (Bld) [#/Vo l]Ordered By: Wesley Villafuerte on 04-28-2024 Neutrophils (Bld) [#/Vol] Neutrophils [#/volume] in Blood by Automated count 1.8-7.7 [facility] Neutrophils/100 WBC Auto (Bl d)Ordered By: Wesley Villafuerte on 04-28-2024 Neutrophils/100 WBC (Bld) Automated neutrophil % . [facility] Nitrite Test strip Ql (U)Ord ered By: Wesley Villafuerte on 04-28-2024 Nitrite Ql (U) Nitrite [Presence] i n Urine by Test strip Negative [facility] No Panel InformationOrdered By: Wesley Villafuerte on 04-28-2024 Estimated GFR (CKD-EPI) > 60.0 mL/Min [facility] Pharmacy Creatinine Clearance (Chem 77.21 [facility] No Panel Informationon 04-28 Bedside Glucose 211 [facility] Nucleated erythrocytes [Pres ence] in Blood by Automated countOrdered By: Wesley Villafuerte on 04-28-2024 Nucleated RBC Auto Ql (Bld) Nucleated erythrocytes [Presence] in Blood by Automated count 0-0.5 [facility] Partial Thromboplastin Timeo n 04-28-2024 aPTT Coag (d) [Time] 30.0 s Normal 25.1-36.5 Th e [facility] Comment on above: Result Comment: A he matocrit value greater than 55% may lead to inaccurate results in coagulation testing. Patients having hematocrit values >55% require a special collection tube for coagulation studies. Please contact the laboratory at [phone] for redraw instructions. PERFORMED BY: [place] [id number] PATHOLOGIST SALES AGENT [employer]ACE M.D. Performed By: #### T SH3 wRFLX, LIPID #### [address] Platelet adequacy [Presence] in Blood by Light microscopyOrdered By: Wesley Villafuerte on 04-28-2024 Platelets LM Ql (Bld) Platelet adequacy [Presence] in Blood by Light microscopy Normal [facility] Platelet mean volume Auto (B ld) [Entitic vol]Ordered By: Wesley Villafuerte on 04-28-2024 Platelet mean volume (Bld) [Entitic vol] Platelet mean volume [Entitic volume] in Blood by Automated count 6.3-10.7 [facility] Platelet morphology finding [Identifier] in BloodOrdered By: Wesley Villafuerte on 04-28-2024 Platelet morphology finding Nom (Bld) Platelet morphology finding [Identifier] in Blood Normal [facility] Platelets Auto (Bld) [#/Vol] Ordered By: Wesley Villafuerte on 04-28-2024 Platelets (Bld) [#/Vol] Platelets [#/vol ume] in Blood by Automated count Low 150-450 [facility] Polychromasia [Presence] in Blood by Light microscopyOrdered By: Wesley Villafuerte on 04-28-2024 Polychromasia LM Ql (Bld) Polychromasia [Presence] in Blood by Light microscopy [facility] Potassium [Moles/volume] in Serum or PlasmaOrdered By: Wesley Villafuerte on 04-28-2024 Potassium [Moles/Vol] Potassium [Moles/v olume] in Serum or Plasma 3.5-5.1 [facility] Comment on above: Hemolysis is present at a level that could interfere with the result.Contact lab if redraw is required Protein Test strip (U) [Mass /Vol]Ordered By: Wesley Villafuerte on 04-28-2024 Protein (U) [Mass/Vol] Protein [Mass/vol ume] in Urine by Test strip Negative [facility] Protein [Mass/volume] in Ser um or PlasmaOrdered By: Wesley Villafuerte on 04-28-2024 Protein [Mass/Vol] Protein [Mass/volume ] in Serum or Plasma 6.4-8.9 [facility] Prothrombin Time INRon 04-28 INR Coag (PPP) [Relative time] 1.3 {INR} Normal [facility] Comment on above: [...] By: #### T SH3 wRFLX, LIPID #### [facility] [address] [place] [id number] [facility] PT Coag (PPP) [Time] 15.1 s High 9.0-12.9 [facility] Comment on above: Result Comment: A he matocrit value greater than 55% may lead to inaccurate results in coagulation testing. Patients having hematocrit values >55% require a special collection tube for coagulation studies. Please contact the laboratory at [phone] for redraw instructions. Performed By: #### T SH3 wRFLX, LIPID #### [facility] [address] [place] [id number] [facility] Prothrombin time (PT)Ordered By: Wesley Villafuerte on 04-28-2024 PT Coag (PPP) [Time] Prothrombin time (PT) High 9.0- 12.9 [facility] Comment on above: A hematocrit value g reater than 55% may lead to inaccurate results in coagulation testing. Patients having hematocrit values >55% require a special collection tube for coagulation studies. Please contact the laboratory at [phone] for redraw instructions. RBC Auto (Bld) [#/Vol]Ordere d By: Wesley Villafuerte on 04-28-2024 RBC (Bld) [#/Vol] Erythrocytes [#/volu me] in Blood by Automated count High 3.60-5.00 [facility] Respiratory (Upper) Panel, P CRon 04-28-2024 Respiratory [...] A H3 Blank Space ------ PERFORMED BY: [facility] [address] [place] [address] PATHOLOGIST SALES AGENT [employer] MACE M.D. Normal [facility] Comment on above: Performed By: #### T SH3 wRFLX, LIPID #### [facility] [address] Respiratory pathogens DNA an d RNA panel - Nasopharynx by TEJINDER with non-probe detectionOrdered By: Wesley Villafuerte on 04-28-2024 Respiratory pathogens DNA and RNA panel TEJINDER+non-probe (Nph) Respiratory pathogens DNA and RNA panel - Nasopharynx by TEJINDER with non-probe detection [facility] Respiratory pathogens DNA and RNA panel TEJINDER+non-probe (Nph) Respiratory pathogens DNA and RNA panel - Nasopharynx by TEJINDER with non-probe detection [facility] Scan and CBCon 04-28-2024 Anisocytosis Ql (Bld) Slight Normal [facility] Comment on above: Performed By: #### C MP, MG, PHOS, CBC #### [address] Basophils (Bld) [#/Vol] 0.1 10*3/uL Normal 0.0-0.2 [facility] Comment on above: Performed By: #### C MP, MG, PHOS, CBC #### [address] Basophils/100 WBC (Bld) 1.1 % Normal . T kan [facility] Comment on above: Performed By: #### C MP, MG, PHOS, CBC #### [address] Eosinophils (Bld) [#/Vol] 0.3 10*3/uL Normal 0.0-0.45 [facility] Comment on above: Performed By: #### C MP, MG, PHOS, CBC #### [address] Eosinophils/100 WBC (Bld) 2.7 % Normal . [facility] Comment on above: Performed By: #### C MP, MG, PHOS, CBC #### [address] Erythrocyte distribution width (RBC) [Ratio] 15.4 % High 11.9-15.3 [facility] Comment on above: Performed By: #### C MP, MG, PHOS, CBC #### [address] Hematocrit (Bld) [Volume fraction] 48.1 % High 34.0-46.4 [facility] Comment on above: Performed By: #### C MP, MG, PHOS, CBC #### [address] Hemoglobin (Bld) [Mass/Vol] 16.0 g/dL High 11.8-15.4 [facility] Comment on above: Performed By: #### C MP, MG, PHOS, CBC #### [address] Lymphocytes (Bld) [#/Vol] 2.5 10*3/uL Normal 1.00-4.8 [facility] Comment on above: Performed By: #### C MP, MG, PHOS, CBC #### [address] Lymphocytes/100 WBC (Bld) 24.6 % Normal . [facility] Comment on above: Performed By: #### C MP, MG, PHOS, CBC #### [address] MCH (RBC) [Entitic mass] 31.7 pg Normal 24.7-34.3 [facility] Comment on above: Performed By: #### C MP, MG, PHOS, CBC #### [address] MCV (RBC) [Entitic vol] 95.1 fL Normal 80-100 T he [facility] Comment on above: Performed By: #### C MP, MG, PHOS, CBC #### [address] Mean Corpuscular HGB Conc 33.3 g/dL Normal 32.0-35.0 [facility] Comment on above: Performed By: #### C MP, MG, PHOS, CBC #### [address] Monocytes (Bld) [#/Vol] 0.8 10*3/uL Normal 0.0-0.8 [facility] Comment on above: Performed By: #### C MP, MG, PHOS, CBC #### [address] Monocytes/100 WBC (Bld) 20.25 % High 0.00-20.00 T [facility] Comment on above: Result Comment: For adults in ED, MDW > 20.0 may be associated with a higher risk of sepsis during the first 12 hrs of hospital admission Performed By: #### C MP, MG, PHOS, CBC #### [facility] [address] [place] [address] [place] Monocytes/100 WBC (Bld) 7.6 % Normal . T [facility] Comment on above: Performed By: #### C MP, MG, PHOS, CBC #### [facility] [address] [place] [address] [place] Neutrophils (Bld) [#/Vol] 6.5 10*3/uL Normal 1.8-7.7 [facility] Comment on above: Performed By: #### C MP, MG, PHOS, CBC #### [facility] [address] [place] [address] [place] Neutrophils/100 WBC (Bld) 64.0 % Normal . [facility] Comment on above: Performed By: #### C MP, MG, PHOS, CBC #### [facility] [address] [place] [address] [place] NRBC% 0.2 /100{WBC} Normal 0-0.5 The [facility] Comment on above: Performed By: #### C MP, MG, PHOS, CBC #### [facility] [address] [place] [address] [place] Platelet Estimate Decreased Normal Normal The [facility] Comment on above: Performed By: #### C MP, MG, PHOS, CBC #### [facility] [address] [place] [id number] [place] Platelet mean volume (Bld) [Entitic vol] 9.9 fL Normal 6.3-10.7 The [facility] Comment on above: Performed By: #### C MP, MG, PHOS, CBC #### [facility] [address] [place] [id number] [place] Platelet Morphology Normal Normal Normal The [facility] Comment on above: Result Comment: PERF ORMED BY: [place] [address] PATHOLOGIST SALES AGENT [employer] M.D. Performed By: #### C MP, MG, PHOS, CBC #### [address] Platelets (Bld) [#/Vol] 136 10*3/uL Low 150-450 [facility] Comment on above: Performed By: #### C MP, MG, PHOS, CBC #### [address] Polychromasia Slight Normal The [facility] Comment on above: Performed By: #### C MP, MG, PHOS, CBC #### [address] RBC (Bld) [#/Vol] 5.06 10*6/uL High 3.60-5.00 The [facility] Comment on above: Performed By: #### C MP, MG, PHOS, CBC #### [address] WBC (Bld) [#/Vol] 10.2 10*3/uL Normal 3.8-11.6 The [facility] Comment on above: Performed By: #### C MP, MG, PHOS, CBC #### [address] WBC (Bld) [#/Vol] 10.9 10*3/uL Normal 3.8-11.6 [facility] Comment on above: Performed By: #### C MP, MG, PHOS, CBC #### [address] Serum or plasma albumin/glob ulin mass ratioOrdered By: Wesley Villafuerte on 04-28-2024 Albumin/Globulin [Mass ratio] Serum or plasma albumin/globulin mass ratio [facility] Serum or plasma anion gap de terminationOrdered By: Wesley Villafuerte on 04-28-2024 Anion gap [Moles/Vol] Serum or plasma an ion gap determination 6.0-15.0 [facility] Sodium [Moles/volume] in Ser um or PlasmaOrdered By: Wesley Villafuerte on 04-28-2024 Sodium [Moles/Vol] Sodium [Moles/volume ] in Serum or Plasma 136-145 [facility] Specific gravity Test strip (U) [Rel density]Ordered By: Wesley Villafuerte on 04-28-2024 Specific gravity (U) [Rel density] Specific gravity of Urine by Test strip High 1.001-1.03 0 [facility] Troponin I High Sensitivityo n 04-28-2024 Troponin I High Sensitivity 5.1 pg/mL Normal 0.0-15.0 [facility] Comment on above: Result Comment: PERF ORMED BY: [place] [address] PATHOLOGIST SALES AGENT [employer] M.D. Performed By: #### T SH3 wRFLX, LIPID #### [address] Troponin I.cardiac [Mass/vol ume] in Serum or Plasma by Detection limit <= 0.01 ng/Ordered By: Wesley Villafuerte on 04-28-2024 Troponin I.cardiac DL <= 0.01 ng/mL [Mass/Vol] Troponin I.cardiac [Mass/volume] in Serum or Plasma by Detection limit <= 0.01 ng/ 0.0-15.0 [facility] Urea nitrogen [Mass/volume] in Serum or PlasmaOrdered By: Wesley Villafuerte on 04-28-2024 Urea nitrogen [Mass/Vol] Urea nitrogen [Mass/volume] in Serum or Plasma 7-25 [facility] Urobilinogen Test strip (U) [Mass/Vol]Ordered By: Wesley Villafuerte on 04-28-2024 Urobilinogen (U) [Mass/Vol] Urobilinogen [Mass/volume] in Urine by Test strip Normal [facility] WBC Auto (Bld) [#/Vol]Ordere d By: Wesley Villafuerte on 04-28-2024 WBC (Bld) [#/Vol] Leukocytes [#/volume ] in Blood by Automated count 3.8-11.6 [facility] X-ray reportOrdered By: Oz Bowling on 04-28-2024 Study report [facility] Main [address]atter [address] [place] [address] XRay Report Signed Patient: Taye Gay MR#: [id number] : 1955 Acct:[id number] Age/Sex: 68 / F ADM Date: 4 Loc: ER Room: Type: [facility] ER Attending Dr: Copies to: Wesley [...] Oz Bowling M.D.04/28/2024 9:46 PM Dictation Location: [place] [address] Transcribed By: [facility] 04/28/242145 Dictated By: Oz Bowling II, MD 04/28/242143 Signed By: 04/28/242145 [facility] Work Phone: XR chest 2V*on 04-28-2024 XR chest 2V* [facility] Main [address] [address] XRay Report Signed Patient: Taye Gay MR#: [id number] 19 : 1955 Acct:[id number] Age/Sex: 68 / F ADM Date: 04/28/24 Loc: ER Room: Type: REG ER Attending Dr: Copies to: Wesley Villafuerte [...] Oz Bowling M.D.04/28/2024 9:46 PM Dictation Location: [facility]-- Transcribed By: [facility] 04/28/242145 Dictated By: Oz Bowling II, MD 04/28/242143 Signed By: 04/28/242145 Normal [facility] Yeast.budding [Presence] in Urine by Computer assisted methodOrdered By: Wesley Villafuerte on 04-28-2024 Yeast.budding Computer assisted Ql (U) Yeast.budding [Presence] in Urine by Computer assisted method High None Seen [facility] aPTT in Platelet poor plasma by Coagulation assayOrdered By: Wesley Villafuerte on 04-28-2024 aPTT Coag (PPP) [Time] Activated partial thromboplastin time (aPTT) in platelet poor plasma by coagulation a 25.1-36.5 [facility] Comment on above: A hematocrit value g reater than 55% may lead to inaccurate results in coagulation testing. Patients having hematocrit values >55% require a special collection tube for coagulation studies. Please contact the laboratory at [phone] for redraw instructions. pH Test strip (U)Ordered By: Wesley Villafuerte on 04-28-2024 pH (U) pH of Urine by Test strip 5.0-9.0 [facility] ECG 12 lead ECGon 04-27-2024 ECG 12 lead ECG [facility] [address] Electrocardiograph Report Signed Patient: Taye Gay MR#: [id number] 19 : 1955 Acct:[id number] Age/Sex: 68 / F ADM Date: 04/27/24 Loc: ER Room: Type: [facility] ER Attending Dr: Ordering Provider: Rl [...] By Rl Villavicencio DO 218 Normal [facility] Alanine aminotransferase [En zymatic activity/volume] in Serum or PlasmaOrdered By: Nataliya Jane on 04-14-2024 ALT [Catalytic activity/Vol] Alanine aminotransferase [Enzymatic activity/volume] in Serum or Plasma [facility] Albumin [Mass/volume] in Ser um or Plasma by Bromocresol green (BCG) dye binding methoOrdered By: Nataliya Jane on 04-14-2024 Albumin BCG dye [Mass/Vol] Albumin [Mass/volume] in Serum or Plasma by Bromocresol green (BCG) dye binding metho 3.5-5.7 [facility] Alkaline phosphatase [Enzyma tic activity/volume] in Serum or PlasmaOrdered By: Nataliya Jane on 04-14-2024 ALP [Catalytic activity/Vol] Alkaline phosphatase [Enzymatic activity/volume] in Serum or Plasma 34-104 [facility] Aspartate aminotransferase [ Enzymatic activity/volume] in Serum or PlasmaOrdered By: Nataliya Jane on 04-14-2024 AST [Catalytic activity/Vol] Aspartate aminotransferase [Enzymatic activity/volume] in Serum or Plasma 13-39 [facility] Bilirubin.total [Mass/volume ] in Serum or PlasmaOrdered By: Nataliya Jane on 04-14-2024 Bilirubin [Mass/Vol] Bilirubin.total [Mass/volume] in Serum or Plasma 0.3-1.0 [facility] CBC W Auto Differential pane l (Bld)on 04-14-2024 Basophils (Bld) [#/Vol] 0.1 10*3/uL 0.0 - 0.2 10*3/uL [facility] Basophils/100 WBC Manual cnt (Syn fld) 0.6 % . [facility] Eosinophils (Bld) [#/Vol] 0.3 10*3/uL 0.0 - 0.45 10*3/uL [facility] Eosinophils/100 WBC Manual cnt (Syn fld) 2.6 % . [facility] Erythrocyte distribution width (RBC) [Ratio] 15 % 11.9 - 15.3 % [facility] Hematocrit (Bld) [Volume fraction] 49.7 % High 34.0 - 46.4 % [facility] Hemoglobin (Bld) [Mass/Vol] 16.6 g/dL High 11.8 - 15.4 g/dL [facility] Interpretation and review of laboratory results Abnormal [facility] Lymphocytes (Bld) [#/Vol] 2.1 10*3/uL 1.00 - 4.8 10*3/uL [facility] Lymphocytes/100 WBC Manual cnt (Syn fld) 19.3 % . [facility] MCH (RBC) [Entitic mass] 31.2 pg 24.7 - 34.3 pg [facility] MCHC (RBC) [Mass/Vol] 33.4 g/dL 32.0 - 35.0 g/dL [facility] MCV (RBC) [Entitic vol] 93.4 fL 80 - 100 fL [facility] Monocytes (Bld) [#/Vol] 0.9 10*3/uL High 0.0 - 0.8 10*3/uL [facility] Monocytes+Macrophages/1 00 WBC Manual cnt (Syn fld) 8.7 % . [facility] Neutrophils (Bld) [#/Vol] 7.3 10*3/uL 1.8 - 7.7 10*3/uL [facility] Neutrophils/100 WBC Manual cnt (Syn fld) 68.8 % . [facility] NRBC 0.1 /100{WBC} 0 - 0.5 /100{WBC} [facility] Platelet mean volume (Bld) [Entitic vol] 8.9 fL 6.3 - 10.7 fL [facility] Platelets (Bld) [#/Vol] 167 10*3/uL 150 - 450 10*3/uL [facility] RBC LM.HPF (Urine sed) [#/Area] 5.32 10*6/uL High 3.60 - 5.00 10*6/uL [facility] WBC (Bld) [#/Vol] 10.7 10*3/uL 3.8 - 11.6 10*3/uL [facility] WBC LM.HPF (Urine sed) [#/Area] 10.7 10*3/uL 3.8 - 11.6 10*3/uL [facility] Calcium [Mass/volume] in Ser um or PlasmaOrdered By: Nataliya Lucinda on 04-14-2024 Calcium [Mass/Vol] Calcium [Mass/volume ] in Serum or Plasma 8.6-10.3 [facility] Carbon dioxide, total [Moles /volume] in Serum or PlasmaOrdered By: Nataliya Lucinda on 04-14-2024 CO2 [Moles/Vol] Carbon dioxide, tota l [Moles/volume] in Serum or Plasma 21.0-31.0 [facility] Chloride [Moles/volume] in S elliot or PlasmaOrdered By: Nataliya Lucinda on 04-14-2024 Chloride [Moles/Vol] Chloride [Moles/vol ume] in Serum or Plasma 98-107 [facility] Complete Blood Count Auto Di ffon 04-14-2024 Basophils (Bld) [#/Vol] 0.1 10*3/uL Normal 0.0-0.2 [facility] Comment on above: Result Comment: PERF ORMED BY: [address] [address] PATHOLOGIST SALES AG[employer]ACE M.D. Performed By: #### C MP, LDH, PATH SLIDE REV, CBC #### [address] [address] [place] Basophils/100 WBC (Bld) 0.6 % Normal . T kan [facility] Comment on above: Performed By: #### C MP, LDH, PATH SLIDE REV, CBC #### [address] Eosinophils (Bld) [#/Vol] 0.3 10*3/uL Normal 0.0-0.45 [facility] Comment on above: Performed By: #### C MP, LDH, PATH SLIDE REV, CBC #### [address] Eosinophils/100 WBC (Bld) 2.6 % Normal . [facility] Comment on above: Performed By: #### C MP, LDH, PATH SLIDE REV, CBC #### [address] Erythrocyte distribution width (RBC) [Ratio] 15.0 % Normal 11.9-15.3 [facility] Comment on above: Performed By: #### C MP, LDH, PATH SLIDE REV, CBC #### [address] Hematocrit (Bld) [Volume fraction] 49.7 % High 34.0-46.4 [facility] Comment on above: Performed By: #### C MP, LDH, PATH SLIDE REV, CBC #### [address] Hemoglobin (Bld) [Mass/Vol] 16.6 g/dL High 11.8-15.4 [facility] Comment on above: Performed By: #### C MP, LDH, PATH SLIDE REV, CBC #### [place] [address] [place] Lymphocytes (Bld) [#/Vol] 2.1 10*3/uL Normal 1.00-4.8 [facility] Comment on above: Performed By: #### C MP, LDH, PATH SLIDE REV, CBC #### [address] Lymphocytes/100 WBC (Bld) 19.3 % Normal . [facility] Comment on above: Performed By: #### C MP, LDH, PATH SLIDE REV, CBC #### [address] MCH (RBC) [Entitic mass] 31.2 pg Normal 24.7-34.3 [facility] [facility] Comment on above: Performed By: #### C MP, LDH, PATH SLIDE REV, CBC #### [address] MCV (RBC) [Entitic vol] 93.4 fL Normal 80-100 T [facility] Comment on above: Performed By: #### C MP, LDH, PATH SLIDE REV, CBC #### [address] Mean Corpuscular HGB Conc 33.4 g/dL Normal 32.0-35.0 The [facility] Comment on above: Performed By: #### C MP, LDH, PATH SLIDE REV, CBC #### [address] Monocytes (Bld) [#/Vol] 0.9 10*3/uL High 0.0-0.8 The [facility] Comment on above: Performed By: #### C MP, LDH, PATH SLIDE REV, CBC #### [address] Monocytes/100 WBC (Bld) 8.7 % Normal . [facility] Comment on above: Performed By: #### C MP, LDH, PATH SLIDE REV, CBC #### [address] Neutrophils (Bld) [#/Vol] 7.3 10*3/uL Normal 1.8-7.7 The [facility] Comment on above: Performed By: #### C MP, LDH, PATH SLIDE REV, CBC #### [address] Neutrophils/100 WBC (Bld) 68.8 % Normal . [facility] Comment on above: Performed By: #### C MP, LDH, PATH SLIDE REV, CBC #### [address] NRBC% 0.1 /100{WBC} Normal 0-0.5 The [facility] Comment on above: Performed By: #### C MP, LDH, PATH SLIDE REV, CBC #### [address] Platelet mean volume (Bld) [Entitic vol] 8.9 fL Normal 6.3-10.7 The [facility] Comment on above: Performed By: #### C MP, LDH, PATH SLIDE REV, CBC #### [address] Platelets (Bld) [#/Vol] 167 10*3/uL Normal 150-450 The [facility] Comment on above: Performed By: #### C MP, LDH, PATH SLIDE REV, CBC #### [address] RBC (Bld) [#/Vol] 5.32 10*6/uL High 3.60-5.00 The [facility] Comment on above: Performed By: #### C MP, LDH, PATH SLIDE REV, CBC #### [address] WBC (Bld) [#/Vol] 10.7 10*3/uL Normal 3.8-11.6 The [facility] Comment on above: Performed By: #### C MP, LDH, PATH SLIDE REV, CBC #### [address] Comprehensive Metabolic Pane juan 04-14-2024 Albumin [Mass/Vol] 4.1 g/dL Normal 3.5-5.7 The [facility] Comment on above: Performed By: #### L IPID, BMP #### [address] Albumin/Globulin [Mass ratio] 1.2 {ratio} Normal The [facility] Comment on above: Performed By: #### L IPID, BMP #### [address] ALP [Catalytic activity/Vol] 92 U/L Normal 34-104 The [facility] Comment on above: Performed By: #### L IPID, BMP #### [facility] [address] [place] [address] [place] ALT [Catalytic activity/Vol] 20 U/L Normal 7-52 The [facility] Comment on above: Performed By: #### L IPID, BMP #### [facility] [address] Anion gap [Moles/Vol] 16.1 mmol/L High 6.0-15.0 Th e [facility] Comment on above: Performed By: #### L IPID, BMP #### [facility] [address] AST [Catalytic activity/Vol] 26 U/L Normal 13-39 The [facility] Comment on above: Performed By: #### L IPID, BMP #### [facility] [address] [place] [address] [place] Bilirubin [Mass/Vol] 0.6 mg/dL Normal 0.3-1.0 The [facility] Comment on above: Performed By: #### L IPID, BMP #### [facility] [address] [place] [address] [place] Calcium [Mass/Vol] 10.0 mg/dL Normal 8.6-10.3 The [facility] Comment on above: Performed By: #### L IPID, BMP #### [facility] [address] [place] [address] [place] Chloride [Moles/Vol] 101 mmol/L Normal 98-107 The [facility] Comment on above: Performed By: #### L IPID, BMP #### [facility] [address] [place] [id number] [place] CO2 [Moles/Vol] 26.9 mmol/L Normal 21.0-31.0 The [facility] Comment on above: Performed By: #### L IPID, BMP #### [facility] [address] [place] [address] [place] Creatinine [Mass/Vol] 0.83 mg/dL Normal 0.60-1.20 The [facility] Comment on above: Performed By: #### L IPID, BMP #### [facility] [address] [place] [address] [place] Creatinine Clr Calc Pharmacy 78.05 Normal The [facility] Comment on above: Performed By: #### L IPID, BMP #### [facility] [address] [place] [address] [place] GFR/1.73 sq M.predicted MDRD (S/P/Bld) [Vol rate/Area] mL/min/{1.73_m2} Normal The [facility] Comment on above: Performed By: #### L IPID, BMP #### [facility] [address] Globulin (S) [Mass/Vol] 3.3 g/dL Normal T he [facility] Comment on above: Performed By: #### L IPID, BMP #### [address] Glucose [Mass/Vol] 169 mg/dL High 70-100 The [facility] Comment on above: Result Comment: [facility] Glucose Reference Range is dependent on time and content of last meal. Glucose of more than 200 mg/dL in a nonstressed, ambulatory subject supports the diagnosis of Diabetes Mellitus. ADA recommended reference range Performed By: #### L IPID, BMP #### [address] Potassium [Moles/Vol] 4.0 mmol/L Normal 3.5-5.1 The [facility] Comment on above: Performed By: #### L IPID, BMP #### [address] Protein [Mass/Vol] 7.4 g/dL Normal 6.4-8.9 The [facility] Comment on above: Performed By: #### L IPID, BMP #### [place] [address] [place] Sodium [Moles/Vol] 140 mmol/L Normal 136-145 The [facility] Comment on above: Performed By: #### L IPID, BMP #### [facility] [address] [place] [id number] [facility] Urea nitrogen [Mass/Vol] 8 mg/dL Normal 7-25 The [facility] Comment on above: Performed By: #### L ADRY NUNN #### [facility] [address] [place] [address] [facility] Comprehensive metabolic pane juan 04-14-2024 Albumin [Mass/Vol] 4.1 g/dL 3.5 - 5.7 g/dL [facility] Albumin/Globulin [Mass ratio] 1.2 {ratio} [facility] ALP [Catalytic activity/Vol] 92 U/L 34 - 104 U/L [facility] ALT [Catalytic activity/Vol] 20 U/L 7 - 52 U/L [facility] Anion gap [Moles/Vol] 16.1 mmol/L High 6.0 - 15.0 meq/L [facility] AST [Catalytic activity/Vol] 26 U/L 13 - 39 U/L [facility] Bilirubin [Mass/Vol] 0.6 mg/dL 0.3 - 1 .0 mg/dL [facility] Calcium [Mass/Vol] 10 mg/dL 8.6 - 10. 3 mg/dL [facility] Chloride [Moles/Vol] 101 mmol/L 98 - 10 7 mmol/L [facility] CO2 [Moles/Vol] 26.9 mmol/L 21.0 - 31.0 mmol/L [facility] Creatinine (U) [Mass/Vol] 0.83 mg/dL 0.60 - 1.20 mg/dL [facility] CREATININE CLR CALC PHARMACY 78.05 [facility] ESTIMATED GFR mL/Min [facility] Globulin (S) [Mass/Vol] 3.3 g/dL N [facility] Glucose [Mass/Vol] 169 mg/dL High 70 - 100 mg/dL [facility] Comment on above: Random Glucose Refer ence Range is dependent on time and content of last meal. Glucose of more than 200 mg/dL in a nonstressed, ambulatory subject supports the diagnosis of Diabetes Mellitus. ADA recommended reference range Interpretation and review of laboratory results [facility]normal [facility] Potassium [Moles/Vol] 4 mmol/L 3.5 - 5.1 mmol/L [facility] Protein [Mass/Vol] 7.4 g/dL 6.4 - 8.9 g/dL [facility] Sodium [Moles/Vol] 140 mmol/L 136 - 145 mmol/L [facility] Urea nitrogen [Mass/Vol] 8 mg/dL 7 - 25 mg/dL [facility] Creatinine [Mass/volume] in Serum or PlasmaOrdered By: Nataliya Jane on 04-14-2024 Creatinine [Mass/Vol] Creatinine [Mass/v olume] in Serum or Plasma 0.60-1.20 [facility] Globulin Calc (S) [Mass/Vol] Ordered By: Nataliya Jane on 04-14-2024 Globulin (S) [Mass/Vol] Serum globulin measurement by calculation (mass/volume) [facility] Glucose [Mass/volume] in Ser um or PlasmaOrdered By: Nataliya Jane on 04-14-2024 Glucose [Mass/Vol] Glucose [Mass/volume ] in Serum or Plasma High 70-100 [facility] Comment on above: ADA recommended refe rence rangeRandom Glucose Reference Range is dependent on time and content of last meal. Glucose of more than 200 mg/dL in a nonstressed, ambulatory subject supports the diagnosis of Diabetes Mellitus. Juan 04-14-2024 L ---- Specimen: [id number] Received: 04/14/24 Status: FIDEL Ta Num: [id number] Spec Type: Impression Subm Dr: Nataliya Jane APRN Tissues: PATHPER Procedures: PATHREVIEW Age/ Patient Sex Location Account Attending Physician Taye Gay 68/F XT [id number] Nataliya Jane APRN SPEC NUM: [id number] RECD: 04/14/24 STATUS: FIDEL TA NUM: [id number] RONNY: 04/14/24- SUBM DR: Nataliya Jane APRN ENTERED: 04/14/[address]: CHRISTOPHER TYPE: Impression DEPT: CT ENTERED BY: [id number] RECV BY: [id number] ORDERED: PATHREVIEW ORDERED: PATHREVIEW Pathologist Review Abnormal [...] chronic smoking. Clinical correlations are suggested CPT: 19865 Specimen: [id number] Received: 04/14/24 Status: FIDEL Ta Num: [id number] Spec Type: Impression Subm Dr: Nataliya Jane APRN Tissues: PATHPER Procedures: PATHREVIEW Patient: Taye Gay [id number] (Continued) Specimen: [id number] Received: 04/14/24 (Continued) Signed (signature on file) Nereyda Holt MD 04/15/24 0920 Specimen: [id number] Received: 04/14/24 Status: FIDEL Ta Num: [id number] Spec Type: Impression Subm Dr: Nataliya K Demboske, ELECTRICIAN MASTER Tissues: PATHPER Procedures: PATHREVIEW Patient: Taye Gay [id number] (Continued) Specimen: [id number] Received: 04/14/24-1147 (Continued) CBC [...] % Lymp % (Auto) 19.3 . % Calvert % (Auto) 8.7 . % Eos % (Auto) 2.6 . % Baso % (Auto) 0.6 . % NRBC% 0.1 0-0.5 /100 WBC Neut # (Auto) 7.3 1.8-7.7 x10E3/uL Lymph # (Auto) 2.1 1.00-4.8 x10E3/uL Calvert # (Auto) 0.9 H 0.0-0.8 x10E3/uL Eos # (Auto) 0.3 0.0-0.45 x10E3/uL Baso# (Auto) 0.1 0.0-0.2 x10E3/uL Specimen: [id number] Received: 04/14/24 Status: FIDEL Ta Num: [id number] Spec Type: Impression Subm Dr: Nataliya Jane APRN Tissues: PATHPER Procedures: PATHREVIEW Patient: Taye Gay [id number] (Continued) Signed (signature on file) Nereyda Holt MD 04/15/24 0920 Normal [facility] LDH Lactate Dehydrogenaseon 04-14-2024 LDH Lactate Dehydrogenase 155 U/L Normal 140-271 [facility] Comment on above: Result Comment: PERF ORMED BY: [address] [address] PATHOLOGIST SALES AGENT INSURANCE LE MACE M.D. Performed By: #### L IPID, BMP #### [facility] [address] [place] [address] [facility] LDH Lactate to pyruvate reac tion [Catalytic activity/Vol]on 04-14-2024 LDH LACTATE DEHYDROGENASE 155 U/L 140 - 271 U/L [facility] Lactate dehydrogenase [Enzym atic activity/volume] in Serum or Plasma by Lactate to pyOrdered By: Nataliya Jane on 04-14-2024 LDH Lactate to pyruvate reaction [Catalytic activity/Vol] Lactate dehydrogenase [Enzymatic activity/volume] in Serum or Plasma by Lactate to py 140-271 [facility] No Panel Informationon 04-14 [facility] No Panel InformationOrdered By: Nataliya Jane on 04-14-2024 Estimated GFR (CKD-EPI) > 60.0 mL/Min [facility] Pharmacy Creatinine Clearance (Chem 78.05 [facility] Slides for Pathologist Review Ordered path review [facility] PATHOLOGIST SLIDE REVIEW (FR MC)on 04-14-2024 PATHOLOGIST SLIDE REVIEW Ordered Path Review [facility] Pathologist Slide Reviewon 1 06-15-2023 Pathologist Slide Review Ordered Path Review Normal The [facility] Comment on above: Result Comment: PERF ORMED BY: [address] [address] PATHOLOGIST SALES AGENT [employer] LE MACE M.D. Performed By: #### L IPID, BMP #### [facility] [address] [place] [address] [place] Potassium [Moles/volume] in Serum or PlasmaOrdered By: Nataliya Jane on 04-14-2024 Potassium [Moles/Vol] Potassium [Moles/v olume] in Serum or Plasma 3.5-5.1 [facility] Protein [Mass/volume] in Ser um or PlasmaOrdered By: Nataliya Jane on 04-14-2024 Protein [Mass/Vol] Protein [Mass/volume ] in Serum or Plasma 6.4-8.9 [facility] Serum or plasma albumin/glob ulin mass ratioOrdered By: Nataliya Jane on 04-14-2024 Albumin/Globulin [Mass ratio] Serum or plasma albumin/globulin mass ratio [facility] Serum or plasma anion gap de terminationOrdered By: Nataliya Jane on 04-14-2024 Anion gap [Moles/Vol] Serum or plasma an ion gap determination High 6.0-15.0 [facility] Sodium [Moles/volume] in Ser um or PlasmaOrdered By: Nataliya Jane on 04-14-2024 Sodium [Moles/Vol] Sodium [Moles/volume ] in Serum or Plasma 136-145 [facility] Urea nitrogen [Mass/volume] in Serum or PlasmaOrdered By: Nataliya Jane on 04-14-2024 Urea nitrogen [Mass/Vol] Urea nitrogen [Mass/volume] in Serum or Plasma 7-25 [facility] ECG 12 Leadon 03-25-2024 Normal sinus rhythm [facility] Work Phone: [facility] Work Phone: Aerobic cultureOrdered By: Vamsi Fritz on 01-07-2024 Bacteria identified Aer cx Nom (Unsp spec) [facility] ECG 12 Leadon 12-16-2023 [facility] Work Phone: Normal sinus rhythm [facility] Work Phone: ANAon 12-07-2023 ANTINUCLEAR ABS, IFA Positive Critically abnormal . [facility] Comment on above: Negative <1:80 Borderline 1:80 Positive >1:80 Interpretation and review of laboratory results Abnormal [facility] NOTE 1 Comment . [facility] Comment on above: Pattern Potential Di sease Association Homogeneous Systemic Lupus Erythematosus, Drug Induced Systemic Lupus Erythematosus, Chronic Autoimmune hepatitis, Juvenile Idiopathic Arthritis Speckled Sjogren Syndrome, Systemic Lupus Erythematosus, Subacute Cutaneous Lupus, Lupus, Congenital Heart Block, Mixed Connective Tissue Disease, Scleroderma-diffuse, Scleroderma-Autoimmune Myositis Overlap Syndrome, Systemic Lupus Efhsfgxgntvti-Itlupsyfjgm-Iidpohmreh Myositis Overlap Syndrome, Systemic Autoimmune Rheumatic Disease, [...] Cytopenias, Linear Scleroderma, Antiphospholipid Syndrome Performed at: [address] [id number] Social Services Specialist: Yuri Osullivan PhD, Phone: [phone] SPECKLED PATTERN 1:320 High . [facility] Comment on above: ICAP nomenclature: A C-2,4,5,29 ANCA PROFILE (ANCA+MPO+PR3)o n 12-07-2023 ANTIMYELOPEROXIDASE (MPO) ABS <0.2 0.0 - 0.9 [facility] ATYPICAL PANCA <1:20 Neg:<1:20 [facility] Comment on above: The atypical pANCA p attern has been observed in a significant percentage of patients with ulcerative colitis, primary sclerosing cholangitis and autoimmune hepatitis. Performed at: [address] [id number] Social Services Specialist: Christine Pham MD, Phone: [phone] Performed at: [address] [id number] Social Services Specialist: Yuri Osullivan PhD, Phone: [phone] CYTOPLASMIC (C-ANCA) <1:20 Neg:<1:20 [facility] PERINUCLEAR (P-ANCA) <1:20 Neg:<1:20 [facility] Comment on above: The presence [...] 3 (PR3) ANTIBODIES <0.2 0.0 - 0.9 [facility] ANTI-CENTROMERE B ANTIBODIES on 12-07-2023 ANTI-CENTROMERE B ANTIBODIES <0.2 0.0 - 0.9 [facility] Comment on above: Performed at: [facility] [address] [id number] Social Services Specialist: Yuri Osullivan PhD, Phone: [phone] ANTI-DSDNA(DBL)ABon 12-07-19 ANTI-DSDNA(DBL)AB 1 0 - 9 [facility] Comment on above: Negative <5 Equivocal 5 - 9 Positive >9 ANTI-RNPon 12-07-2023 ANTI-LOSS PREVENTION SUPERVISOR 0.3 0.0 - 0.9 [facility] ANTIRIBOSOMAL P ANTIBODIESon 12-07-2023 ANTIRIBOSOMAL P ANTIBODIES <0.2 0.0 - 0.9 [facility] Anti-Fritz antibodyon 2023 ANTI-FRITZ ANTIBODIES <0.2 0.0 - 0.9 [facility] HISTONE ANTIBODIESon 024 HISTONE ANTIBODIES 0.6 0.0 - 0.9 [facility] Comment on above: Negative <1.0 Weak Positive 1.0 - 1.5 Moderate Positive 1.6 - 2.5 Strong Positive >2.5 Performed at: [address] [id number] Social Services Specialist: Christine Pham MD, Phone: [phone] SUSHMA-1 ANTIBODYon 12-07-2023 SUSHMA-1 ANTIBODY <0.2 0.0 - 0.9 [facility] Mitochondrial antibodies, M2 on 12-07-2023 MITOCHONDRIAL (M2) ANTIBODY <20.0 0.0 - 20.0 [facility] Comment on above: Negative 0.0 - 20.0 Equivocal 20.1 - 24.9 Positive >24.9 Mitochondrial (M2) Antibodies are found in 90-96% of patients with primary biliary cirrhosis. Performed at: [address] [id number] Social Services Specialist: Yuri Osullivan PhD, Phone: [phone] No Panel Informationon 12-06 [facility] SCLERODERMA 70 ANTIBODIESon 12-07-2023 SCLERODERMA 70 ANTIBODIES <0.2 0.0 - 0.9 [facility] SJOGRENS ANTI-SSA/SSBon 11-27 SS-A/RO SJOGRENS ANTIBODY <0.2 0.0 - 0.9 [facility] SS-B/LA SJOGRENS ANTIBODY <0.2 0.0 - 0.9 [facility] SRP AUTOANTIBODIESon 024 SRP (SIGNAL RECOG. PARTICLE) Negative Negative [facility] Comment on above: This test was develo ped and its performance characteristics determined by [facility]. It has not been cleared or approved by the Food and Drug Administration. Performed at: [facility] [address] [place] [id number] Social Services Specialist: Juan Cruz MD, Phone: [phone] Alanine aminotransferase [En zymatic activity/volume] in Serum or PlasmaOrdered By: Tolu Salinas on 12-02-2023 ALT [Catalytic activity/Vol] 31 U/L 7-52 [facility] Albumin [Mass/volume] in Ser um or Plasma by Bromocresol green (BCG) dye binding methoOrdered By: Tolu Salinas on 12-02-2023 Albumin BCG dye [Mass/Vol] 4.2 g/dL 3.5-5.7 [facility] Alkaline phosphatase [Enzyma tic activity/volume] in Serum or PlasmaOrdered By: Tolu Salinas on 12-02-2023 ALP [Catalytic activity/Vol] 75 U/L 34-104 [facility] Aspartate aminotransferase [ Enzymatic activity/volume] in Serum or PlasmaOrdered By: Tolu Salinas on 12-02-2023 AST [Catalytic activity/Vol] 37 U/L 13-39 [facility] Basophil percentageOrdered B y: Oz Kincaid on 12-02-2023 Basophil percentage 96 ug/dL 80-158 [facility] Comment on above: This test was develo ped and its performance characteristicsdetermined by [facility]. It has not been cleared orapproved by the Food and Drug Administration. Detection Limit = 5Performed at: [facility] [address] [address] [place], [place] [id number] Director: Christine Pham MD, Phone: [phone] Basophil percentage 2 ug/L 0-9 [facility] Comment on above: This test was develo ped and its performance characteristicsdetermined by [facility]. It has not been cleared orapproved by the Food and Drug Administration. Detection Limit = 1 Bilirubin.total [Mass/volume ] in Serum or PlasmaOrdered By: Tolu Salinas on 12-02-2023 Bilirubin [Mass/Vol] 0.4 mg/dL 0.3-1.0 [facility] Blood lead detectionOrdered By: Oz Kincaid on 12-02-2023 Lead Ql (Bld) <1.0 ug/dL 0.0-3.4 [facility] Comment on above: Testing performed by Inductively coupled plasma/MassSpectrometry.Analysis by inductively coupled plasma/massspectrometry (ICP/MS)This test was developed and its performance characteristicsdetermined by [employer]. It has not been cleared orapproved by the Food and Drug Administration. Environmental Exposure: WHO Recommendation <5.0 Occupational Exposure: OSHA Lead Std 40.0 BOB 30.0 Detection Limit = 1.0Performed at: [email or web address] [id number] Director: Yuri Osullivan PhD, Phone: [phone] Blood mercury measurement (m ass/volume)Ordered By: Oz Kincaid on 12-02-2023 Mercury (Bld) [Mass/Vol] <1.0 ug/L 0.0-14.9 [facility] Comment on above: This test was develo ped and its performance characteristicsdetermined by [employer]. It has not been cleared orapproved by the Food and Drug Administration. Detection Limit = 1.0Performed at: [email or web address] [id number] Director: Christine Pham MD, Phone: [phone] Calcium [Mass/volume] in Ser um or PlasmaOrdered By: Tolu Salinas on 12-02-2023 Calcium [Mass/Vol] 9.9 mg/dL 8.6-10.3 [facility] Carbon dioxide, total [Moles /volume] in Serum or PlasmaOrdered By: Tolu Salinas on 12-02-2023 CO2 [Moles/Vol] 32.0 mmol/L High 21.0-31.0 [facility] Chloride [Moles/volume] in S elliot or PlasmaOrdered By: Tolu Salinas on 12-02-2023 Chloride [Moles/Vol] 103 mmol/L 98-107 [facility] Creatinine [Mass/volume] in Serum or PlasmaOrdered By: Tolu Salinas on 12-02-2023 Creatinine [Mass/Vol] 0.97 mg/dL 0.60-1.20 [facility] Globulin Calc (S) [Mass/Vol] Ordered By: Tolu Salinas on 12-02-2023 Globulin (S) [Mass/Vol] 2.7 g/dL [facility] Glucose [Mass/volume] in Ser um or PlasmaOrdered By: Tolu Salinas on 12-02-2023 Glucose [Mass/Vol] 114 mg/dL High 70-100 [facility] Comment on above: ADA recommended refe rence [...] p24 Ag IA Ql Non-Reactive Non Reactive [facility] Comment on above: HIV-1/HIV-2 antibodi es and HIV-1 p24 antigen were NOTdetected. There is no laboratory evidence of HIV infection.HIV NegativePerformed at: [facility] [employer] [id number] Director: Yuri Osullivan PhD, Phone: [phone] Hepatitis B virus surface Ag [Presence] in Serum or Plasma by ImmunoassayOrdered By: Oz Kincaid on 12-02-2023 HBV surface Ag IA Ql Negative Negative [facility] Hepatitis C virus IgG Ab [Pr esence] in Serum or Plasma by ImmunoassayOrdered By: Oz Kincaid on 12-02-2023 HCV IgG IA Ql Non-Reactive Non Reactive [facility] Hepatitis C virus RNA [Units /volume] (viral load) in Serum or Plasma by TEJINDER with probOrdered By: Oz Kincaid on 12-02-2023 HCV RNA TEJINDER+probe Qn N/A [facility] Hepatitis C virus RNA [log u nits/volume] (viral load) in Serum or Plasma by TEJINDER withOrdered By: Oz Kincaid on 12-02-2023 HCV RNA TEJINDER+probe [Log units/Vol] N/A [facility] Lactate dehydrogenase [Enzym atic activity/volume] in Serum or Plasma by Lactate to pyOrdered By: Oz Kincaid on 12-02-2023 LDH Lactate to pyruvate reaction [Catalytic activity/Vol] 156 U/L 140-271 [facility] Magnesium [Mass/volume] in S elliot or PlasmaOrdered By: Tolu Salinas on 12-02-2023 Magnesium [Mass/Vol] 2.0 mg/dL 1.9-2.7 [facility] No Panel InformationOrdered By: Oz Kincaid on 12-02-2023 Miscellaneous Test 2 See comment [facility] Comment on above: See report. Scanned copy available in EMR. Hepatitis A IgM Antibody Negative Negative [facility] Hepatitis B Core IgM Antibody Negative Negative [facility] Hepatitis C Interpretation Comment . [facility] Comment on above: Not infected with HC V unless early or acute infection issuspected (which may be delayed in an immunocompromisedindividual), or other evidence exists to indicate HCVinfection.Performed at: [email or web address] [id number] Director: Yuri Osullivan PhD, Phone: [phone] Miscellaneous Test See comment [facility] Comment on above: See report. Scanned copy available in EMR. Whole Blood Zinc 768 ug/dL 440-860 [facility] Comment on above: This test was develo ped and its performance characteristicsdetermined by [employer]. It has not been cleared orapproved by the Food and Drug Administration.Performed at: [email or web address] [id number] Director: Christine Pham MD, Phone: [phone] No Panel InformationOrdered By: Tolu Salinas on 12-02-2023 Estimated GFR (CKD-EPI) > 60.0 mL/Min [facility] Creatinine Clearance (Chem N/A [facility] Potassium [Moles/volume] in Serum or PlasmaOrdered By: Tolu Salinas on 12-02-2023 Potassium [Moles/Vol] 4.5 mmol/L 3.5-5.1 [facility] Protein [Mass/volume] in Ser um or PlasmaOrdered By: Tolu Salinas on 12-02-2023 Protein [Mass/Vol] 6.9 g/dL 6.4-8.9 [facility] Serum angiotensin converting enzyme (VITA) measurementOrdered By: Oz Kincaid on 12-02-2023 Angiotensin converting enzyme [Catalytic activity/Vol] 53 U/L 14-82 [facility] Comment on above: Performed at: [employer] [place], [place] [id number] Director: Yuri Osullivan PhD, Phone: [phone] Serum cryoglobulin detection Ordered By: Oz Kincaid on 12-02-2023 Cryoglobulin Ql (S) Comment None detected [facility] Comment on above: None Detected at 72 hoursThis test was developed and its performance characteristicsdetermined by [employer]. It has not been cleared orapproved by the Food and Drug Administration.Performed at: [facility] [place], [place] [id number] Director: Yuri Osullivan PhD, Phone: [phone] Serum or plasma albumin/glob ulin mass ratioOrdered By: Tolu Salinas on 12-02-2023 Albumin/Globulin [Mass ratio] 1.6 {ratio} [facility] Serum or plasma anion gap de terminationOrdered By: Tolu Salinas on 12-02-2023 Anion gap [Moles/Vol] 8.5 mmol/L 6.0-15.0 [facility] Serum or plasma ceruloplasmi n measurement (mass/volume)Ordered By: Oz Kincaid on 12-02-2023 Ceruloplasmin [Mass/Vol] 26.8 mg/dL 19.0-39.0 [facility] Comment on above: Performed at: [employer] [place], [place] [id number] Director: Yuri Osullivan PhD, Phone: [phone] Serum or plasma complement C 3 measurement (mass/volume)Ordered By: Oz Kincaid on 12-02-2023 Complement C3 [Mass/Vol] 147 mg/dL 82-167 [facility] Comment on above: Performed at: [employer] [place], [place] [id number] Director: Yuri Osullivan PhD, Phone: [phone] Serum or plasma complement C 4 measurement (mass/volume)Ordered By: Oz Kincaid on 12-02-2023 Complement C4 [Mass/Vol] 32 mg/dL 12-38 [facility] Sodium [Moles/volume] in Ser um or PlasmaOrdered By: Tolu Salinas on 12-02-2023 Sodium [Moles/Vol] 139 mmol/L 136-145 [facility] Thallium [Mass/volume] in Se rum or PlasmaOrdered [...] was developed and its performance characteristicsdetermined by [employer]. It has not been cleared or approvedby the Food and Drug Administration.Performed at: [facility] [address] [id number] Director: Whitney Arevalo [facility], Phone: [phone] Urea nitrogen [Mass/volume] in Serum or PlasmaOrdered By: Tolu Salinas on 12-02-2023 Urea nitrogen [Mass/Vol] 11 mg/dL 7-25 [facility] LACTATE AND PYRUVATEon 11-27 Interpretation and review of laboratory results Abnormal [facility] LACTIC ACID, PLASMA 27.1 mg/dL High 4.8 - 25 .7 mg/dL [facility] PYRUVIC ACID, BLOOD 0.7 mg/dL 0.3 - 0. 7 mg/dL [facility] Comment on above: This test was develo ped and its performance characteristics determined by [employer]. It has not been cleared or approved by the Food and Drug Administration. Performed at: [facility] [address] [place], [place] [id number] Social Services Specialist: Yuri Osullivan PhD, Phone: [phone] Performed at: [address] [id number] Social Services Specialist: Christine Pham MD, Phone: [phone] [facility] DNA double strand Ab [Units/ volume] in SerumOrdered By: Oz Kincaid on 11-26-2023 DNA double strand Ab Qn (S) 1 [IU]/mL 0-9 [facility] Comment on above: Negative <5 Equivoca l 5 - 9 Positive >9 Myeloperoxidase Ab [Units/vo lume] in Serum by ImmunoassayOrdered By: Oz Kincaid on 11-26-2023 Myeloperoxidase Ab IA Qn (S) <0.2 units 0.0-0.9 [facility] No Panel InformationOrdered By: Oz Kincaid on 11-26-2023 Anti-Nuclear Antibody Comment 2 Comment . [facility] Comment on above: Pattern Potential Di sease Association Homogeneous Systemic Lupus Erythematosus, Drug Induced Systemic Lupus Erythematosus, Chronic Autoimmune hepatitis, Juvenile Idiopathic Arthritis Speckled Sjogren Syndrome, Systemic Lupus Erythematosus, Subacute Cutaneous Lupus, Lupus, Congenital Heart Block, Mixed Connective Tissue Disease, Scleroderma-diffuse, Scleroderma-Autoimmune Myositis Overlap Syndrome, Systemic Lupus Wdaxzmeqvyeow-Fmzzvurnpdz-Rbwbrpkczj Myositis Overlap Syndrome, Systemic Autoimmune Rheumatic Disease, [...] Cytopenias, Linear Scleroderma, Antiphospholipid Syndrome Performed at: [facility] [id number] Director: Yuri Osullivan PhD, Phone: [phone] Atypical p-ANCA <1:20 titer Neg:<1:20 [facility] Comment on above: The atypical pANCA p attern has been observed in asignificant percentage of patients with ulcerative colitis,primary sclerosing cholangitis and autoimmune hepatitis.Performed at: [email or web address] [id number] Director: Christine Pham MD, Phone: [phone] at: [facility] [id number] Director: Yuri Osullivan PhD, Phone: [phone] Perinuclear ANCA (p-ANCA) Antibody <1:20 titer Neg:<1:20 [facility] Comment on above: The presence of posi [...] only by EIA. Ref. AM J Clin [id number];111:507-513. Plasma Lactic Acid, Venous 27.1 mg/dL High 4.8-25.7 [facility] Pyruvic Acid 0.7 mg/dL 0.3-0.7 [facility] Comment on above: This test was develo ped and its performance characteristicsdetermined by [employer]. It has not been cleared orapproved by the Food and Drug Administration.Performed at: [address] [id number] Director: Yuri Osullivan PhD, Phone: [phone] at: [address] [id number] Director: Christine Pham MD, Phone: [phone] LOSS PREVENTION SUPERVISOR Antibody 0.3 AI 0.0-0.9 [facility] Scl-70 (Scleroderma) Antibody <0.2 AI 0.0-0.9 [facility] Signal Recognition Particle (SRP) Negative Negative [facility] Comment on above: This test was develo ped and its performance characteristicsdetermined by [employer]. It has not been cleared orapproved by the Food and Drug Administration.Performed at: [facility] [address] [place] [id number] Director: Juan Cruz MD, Phone: [phone] Proteinase 3 Ab [Units/volum e] in Serum by ImmunoassayOrdered By: Oz Kincaid on 11-26-2023 Proteinase 3 Ab IA Qn (S) <0.2 units 0.0-0.9 [facility] Ribosomal P Ab [Units/volume ] in SerumOrdered By: Oz Kincaid on 11-26-2023 Ribosomal P Ab Qn (S) <0.2 AI 0.0-0.9 [facility] Serum Sushma-1 extractable nucle ar antibody assay (units/volume)Ordered By: Oz Kincaid on 11-26-2023 Sushma-1 extractable nuclear Ab Qn (S) <0.2 AI 0.0-0.9 [facility] Serum Sjogrens syndrome-A ex tractable nuclear antibody assay (units/volume)Ordered By: Oz Kincaid on 11-26-2023 Sjogrens syndrome-A extractable nuclear Ab Qn (S) <0.2 AI 0.0-0.9 [facility] Serum Sjogrens syndrome-B ex tractable nuclear antibody assay (units/volume)Ordered By: Oz Kincaid on 11-26-2023 Sjogrens syndrome-B extractable nuclear Ab Qn (S) <0.2 AI 0.0-0.9 [facility] Serum Fritz extractable nucl ear antigen (ARIELLE) antibody assay (units/volume)Ordered By: Oz Kincaid on 11-26-2023 Fritz extractable nuclear Ab Qn (S) <0.2 AI 0.0-0.9 [facility] Serum centromere protein B a ntibody assay (units/volume)Ordered By: Oz Kincaid on 11-26-2023 Centromere protein B Ab Qn (S) <0.2 AI 0.0-0.9 [facility] Comment on above: Performed at: [address] [id number] Director: Yuri Osullivan PhD, Phone: [phone] Serum classic neutrophil cyt oplasmic antibody titer by immunofluorescenceOrdered By: Oz Kincaid on 11-26-2023 Neutrophil cytoplasmic Ab.classic IF (S) [Titer] <1:20 titer Neg:<1:20 [facility] Serum histone IgG antibody a ssay by immunoassay (units/volume)Ordered By: Oz Kincaid on 11-26-2023 Histone IgG IA Qn (S) 0.6 Units 0.0-0.9 [facility] Comment on above: Negative <1.0 Weak P ositive 1.0 - 1.5 Moderate Positive 1.6 - 2.5 Strong Positive >2.5Performed at: - [facility] [id number] Director: Christine Pham MD, Phone: [phone] Serum homogeneous pattern an tinuclear antibody (BEATRICE) titerOrdered By: Oz Kincaid on 11-26-2023 Homogenous nuclear Ab pattern (S) [Titer] N/A [facility] Serum mitochondria M2 IgG an tibody assay (units/volume)Ordered By: Oz Kincaid on 11-26-2023 Mitochondria M2 IgG Qn (S) <20.0 Units 0.0-20.0 [facility] Comment on above: Negative 0.0 - 20.0 Equivocal 20.1 - 24.9 Positive >24.9Mitochondrial (M2) Antibodies are found in 90-96% ofpatients with primary biliary cirrhosis.Performed at: [facility] [employer] [id number] Director: Yuri Osullivan PhD, Phone: [phone] Serum nuclear antibody titer Ordered By: Oz Kincaid on 11-26-2023 Nuclear Ab (S) [Titer] Positive Abnormal . [facility] Comment on above: Negative <1:80 Borde rline 1:80 Positive >1:80 Serum speckled pattern antin uclear antibody (BEATRICE) titerOrdered By: Oz Kincaid on 11-26-2023 Speckled nuclear Ab pattern (S) [Titer] 1:320 High . [facility] Comment on above: ICAP nomenclature: A C-2,4,5,29 Aspartate aminotransferase [ Enzymatic activity/volume] in Serum or PlasmaOrdered By: Jonas Ch on 11-15-2023 AST [Catalytic activity/Vol] 45 U/L High 13-39 [facility] Calcium [Mass/volume] in Ser um or PlasmaOrdered By: Jonas Ch on 11-15-2023 Calcium [Mass/Vol] 10.7 mg/dL High 8.6-10.3 [facility] Carbon dioxide, total [Moles /volume] in Serum or PlasmaOrdered By: Jonas Ch on 11-15-2023 CO2 [Moles/Vol] 27.7 mmol/L 21.0-31.0 [facility] Chloride [Moles/volume] in S elliot or PlasmaOrdered By: Jonas Ch on 11-15-2023 Chloride [Moles/Vol] 102 mmol/L 98-107 [facility] Creatinine [Mass/volume] in Serum or PlasmaOrdered By: Jonas Ch on 11-15-2023 Creatinine [Mass/Vol] 1.02 mg/dL 0.60-1.20 [facility] Creatinine [Mass/volume] in UrineOrdered By: Angelique Russell on 11-15-2023 Creatinine (U) [Mass/Vol] 123.00 mg/dL [facility] Comment on above: No reference range e stablished Glucose [Mass/volume] in Ser um or PlasmaOrdered By: Jonas Ch on 11-15-2023 Glucose [Mass/Vol] 158 mg/dL High 70-100 [facility] Comment on above: ADA recommended refe rence rangeRandom Glucose Reference Range is dependent on time and content of last meal. Glucose of more than 200 mg/dL in a nonstressed, ambulatory subject supports the diagnosis of Diabetes Mellitus. Microalbumin [Mass/volume] i n UrineOrdered By: Angelique Russell on 11-15-2023 Albumin DL <= 20 mg/L (U) [Mass/Vol] 3.0 mg/dL High 0.0-1.8 [facility] No Panel InformationOrdered By: Jonas Ch on 11-15-2023 Estimated GFR (CKD-EPI) > 60.0 mL/Min [facility] Creatinine Clearance (Chem N/A [facility] Potassium [Moles/volume] in Serum or PlasmaOrdered By: Jonas Ch on 11-15-2023 Potassium [Moles/Vol] 4.1 mmol/L 3.5-5.1 [facility] Serum or plasma anion gap de terminationOrdered By: Jonas Ch on 11-15-2023 Anion gap [Moles/Vol] 12.4 mmol/L 6.0-15.0 [facility] Sodium [Moles/volume] in Ser um or PlasmaOrdered By: Jonas Ch on 11-15-2023 Sodium [Moles/Vol] 138 mmol/L 136-145 [facility] Thyrotropin [Units/volume] i n Serum or PlasmaOrdered By: Jonas Ch on 11-15-2023 TSH Qn 3.39 m[IU]/L 0.45-5.33 [facility] Urea nitrogen [Mass/volume] in Serum or PlasmaOrdered By: Jonas Ch on 11-15-2023 Urea nitrogen [Mass/Vol] 20 mg/dL 7-25 [facility] Urine microalbumin/creatinin e mass ratioOrdered By: Angelique Russell on 11-15-2023 Albumin/Creatinine DL <= 20 mg/L (U) [Mass ratio] 24.4 mg/g 0.0-30.0 [facility] Comment on above: 30-300 mg/g indicate s an increased risk for diabetic nephropathy. Greater than 300 mg/g is consistent with clinical nephropathy. (Am. J. Kidney Disease 1995, 25:107) No Panel Informationon 11-13 Bedside Glucose 139 [facility] ECG 12 Leadon 11-13-2023 Normal sinus rhythm Normal EKG QTc 457 ms [facility] Work Phone: Basophils Auto (Bld) [#/Vol] Ordered By: Chaka Frye on 11-12-2023 Basophils (Bld) [#/Vol] 0.0 10*3/uL 0.0-0.2 [facility] Basophils/100 WBC Auto (Bld) Ordered By: Chaka Frye on 11-12-2023 Basophils/100 WBC (Bld) 0.5 % . [facility] Calcium [Mass/volume] in Ser um or PlasmaOrdered By: Chaka Frye on 11-12-2023 Calcium [Mass/Vol] 9.5 mg/dL 8.6-10.3 [facility] Carbon dioxide, total [Moles /volume] in Serum or PlasmaOrdered By: Chaka Frye on 11-12-2023 CO2 [Moles/Vol] 30.0 mmol/L 21.0-31.0 [facility] Chloride [Moles/volume] in S elloit or PlasmaOrdered By: Chaka Frye on 11-12-2023 Chloride [Moles/Vol] 103 mmol/L 98-107 [facility] Creatinine [Mass/volume] in Serum or PlasmaOrdered By: Chaka Frye on 11-12-2023 Creatinine [Mass/Vol] 0.98 mg/dL 0.60-1.20 [facility] Eosinophils Auto (Bld) [#/Vo l]Ordered By: Chaka Frye on 11-12-2023 Eosinophils (Bld) [#/Vol] 0.4 10*3/uL 0.0-0.45 [facility] Eosinophils/100 WBC Auto (Bl d)Ordered By: Chaka Frye on 11-12-2023 Eosinophils/100 WBC (Bld) 5.2 % . [facility] Erythrocyte distribution wid th Auto (RBC) [Ratio]Ordered By: Chaka Frye on 11-12-2023 Erythrocyte distribution width (RBC) [Ratio] 14.0 % 11.9-15.3 [facility] Glucose Glucometer (BldC) [M ass/Vol]Ordered By: Chaka Frye on 11-12-2023 Glucose [Mass/Vol] 137 mg/dL [facility] Comment on above: Random Glucose Refer ence Range is dependent on time and content of last meal. Glucose of more than 200 mg/dL in a nonstressed, ambulatory subject supports the diagnosis of Diabetes Mellitus. Glucose [Mass/volume] in Ser um or PlasmaOrdered By: Chaka Frye on 11-12-2023 Glucose [Mass/Vol] 102 mg/dL High 70-100 [facility] Comment on above: ADA recommended refe rence rangeRandom Glucose Reference Range is dependent on time and content of last meal. Glucose of more than 200 mg/dL in a nonstressed, ambulatory subject supports the diagnosis of Diabetes Mellitus. Hematocrit Auto (Bld) [Volum e fraction]Ordered By: Chaka Frye on 11-12-2023 Hematocrit (Bld) [Volume fraction] 44.6 % 34.0-46.4 [facility] Hemoglobin [Mass/volume] in BloodOrdered By: Chaka Frye on 11-12-2023 Hemoglobin (Bld) [Mass/Vol] 14.6 g/dL 11.8-15.4 [facility] Leukocytes [#/volume] correc deepika for nucleated erythrocytes in Blood by Automated counOrdered By: Chaka Frye on 11-12-2023 WBC corrected for nucl RBC Auto (Bld) [#/Vol] 7.4 10*3/uL 3.8-11.6 [facility] Lymphocytes Auto (Bld) [#/Vo l]Ordered By: Chaka Frye on 11-12-2023 Lymphocytes (Bld) [#/Vol] 2.3 10*3/uL 1.00-4.8 [facility] Lymphocytes/100 WBC Auto (Bl d)Ordered By: Chaka Frye on 11-12-2023 Lymphocytes/100 WBC (Bld) 30.8 % . [facility] MCH Auto (RBC) [Entitic mass ]Ordered By: Chaka Frye on 11-12-2023 MCH (RBC) [Entitic mass] 32.2 pg 24.7-34.3 [facility] MCHC Auto (RBC) [Mass/Vol]Or dered By: Chaka Frye on 11-12-2023 MCHC (RBC) [Mass/Vol] 32.8 g/dL 32.0-35.0 [facility] MCV Auto (RBC) [Entitic vol] Ordered By: Chaka Frye on 11-12-2023 MCV (RBC) [Entitic vol] 98.1 fL 80-100 [facility] Magnesium [Mass/volume] in S elliot or PlasmaOrdered By: Chaka Frye on 11-12-2023 Magnesium [Mass/Vol] 1.9 mg/dL 1.9-2.7 [facility] Monocytes Auto (Bld) [#/Vol] Ordered By: Chaka Frye on 11-12-2023 Monocytes (Bld) [#/Vol] 0.8 10*3/uL 0.0-0.8 [facility] Monocytes/100 WBC Auto (Bld) Ordered By: Chaka Frye on 11-12-2023 Monocytes/100 WBC (Bld) 11.0 % . [facility] Neutrophils Auto (Bld) [#/Vo l]Ordered By: Chaka Frye on 11-12-2023 Neutrophils (Bld) [#/Vol] 3.9 10*3/uL 1.8-7.7 [facility] Neutrophils/100 WBC Auto (Bl d)Ordered By: Chaka Frye on 11-12-2023 Neutrophils/100 WBC (Bld) 52.5 % . [facility] No Panel InformationOrdered By: Chaka Frye on 11-12-2023 Estimated GFR (CKD-EPI) > 60.0 mL/Min [facility] Creatinine Clearance (Chem 63.39 [facility] Nucleated erythrocytes [Pres ence] in Blood by Automated countOrdered By: Chaka Frye on 11-12-2023 Nucleated RBC Auto Ql (Bld) 0.1 /100{WBC} 0-0.5 [facility] Platelet mean volume Auto (B ld) [Entitic vol]Ordered By: Chaka Frye on 11-12-2023 Platelet mean volume (Bld) [Entitic vol] 9.1 fL 6.3-10.7 [facility] Platelets Auto (Bld) [#/Vol] Ordered By: Chaka Frye on 11-12-2023 Platelets (Bld) [#/Vol] 155 10*3/uL 150-450 [facility] Potassium [Moles/volume] in Serum or PlasmaOrdered By: Chaka Frye on 11-12-2023 Potassium [Moles/Vol] 4.4 mmol/L 3.5-5.1 [facility] RBC Auto (Bld) [#/Vol]Ordere d By: Chaka Frye on 11-12-2023 RBC (Bld) [#/Vol] 4.54 10*6/uL 3.60-5.00 [facility] Serum or plasma anion gap de terminationOrdered By: Chaka Frye on 11-12-2023 Anion gap [Moles/Vol] 10.4 mmol/L 6.0-15.0 [facility] Sodium [Moles/volume] in Ser um or PlasmaOrdered By: Chaka Frye on 11-12-2023 Sodium [Moles/Vol] 139 mmol/L 136-145 [facility] Urea nitrogen [Mass/volume] in Serum or PlasmaOrdered By: Chaka Frye on 11-12-2023 Urea nitrogen [Mass/Vol] 18 mg/dL 7-25 [facility] WBC Auto (Bld) [#/Vol]Ordere d By: Chaka Frye on 11-12-2023 WBC (Bld) [#/Vol] 7.4 10*3/uL 3.8-11.6 [facility] Glucose mean value [Mass/vol ume] in Blood Estimated from glycated hemoglobinOrdered By: Jluis Campos on 11-11-2023 Average glucose Estimated from glycated hemoglobin (Bld) [Mass/Vol] 143 mg/dL [facility] Hemoglobin A1c percentageOrd ered By: Jluis Campos on 11-11-2023 HbA1c (Bld) [Mass fraction] 6.6 % High 4.3-5.6 [facility] Comment on above: Increased risk for d iabetes: 5.7 - 6.4diabetes: >6.4glycemic control for adults with diabetes: <7.0 LACTATE AND PYRUVATEon 11-10 LACTIC ACID, PLASMA . [facility] Comment on above: Test not performed. Supernatant is required. CONTACTED YOUR FACILity on 11-05-2023 PYRUVIC ACID, BLOOD . [facility] Comment on above: Test not performed [facility] No Panel InformationOrdered By: Kirt Renae on 11-11-2023 LOSS PREVENTION SUPERVISOR Antibody 0.2 AI 0.0-0.9 [facility] Serum Sushma-1 extractable nucle ar antibody assay (units/volume)Ordered By: Kirt Renae on 11-11-2023 Sushma-1 extractable nuclear Ab Qn (S) <0.2 AI 0.0-0.9 [facility] Comment on above: Performed at: [address] [id number] Director: Yuri Osullivan PhD, Phone: [phone] Serum Sjogrens syndrome-A ex tractable nuclear antibody assay (units/volume)Ordered By: Kirt Renae on 11-11-2023 Sjogrens syndrome-A extractable nuclear Ab Qn (S) <0.2 AI 0.0-0.9 [facility] Serum Sjogrens syndrome-B ex tractable nuclear antibody assay (units/volume)Ordered By: Kirt Renae on 11-11-2023 Sjogrens syndrome-B extractable nuclear Ab Qn (S) <0.2 AI 0.0-0.9 [facility] Serum or plasma thyroglobuli n antibody assay (units/volume)Ordered By: Kirt Renae on 11-11-2023 Thyroglobulin Ab Qn [IU]/mL 0.0-0.9 [facility] Comment on above: Thyroglobulin Antibo dy measured by ubigrateMethodologyIt should be noted that the presence of thyroglobulinantibodies may not be pathogenic nor diagnostic, especiallyat very low levels. The assay marine superintendent has found thatfour percent of individuals without evidence of thyroiddisease or autoimmunity will have positive TgAb levels upto 4 IU/mL.Performed at: [facility] [place] [place] [id number] Director: Yuri Osullivan PhD, Phone: [phone] Serum or plasma thyroperoxid ase antibody assay (units/volume)Ordered By: Kirt Renae on 11-11-2023 TPO Ab Qn [IU]/mL 0-34 [facility] Thyroxine (T4) free [Mass/vo lume] in Serum or PlasmaOrdered By: Kirt Renae on 11-11-2023 Free T4 [Mass/Vol] 0.83 ng/dL 0.61-1.12 [facility] Triiodothyronine (T3) Free [ Mass/volume] in Serum or PlasmaOrdered By: Kirt Renae on 11-11-2023 Free T3 [Mass/Vol] 2.60 pg/mL 2.50-3.90 [facility] Alanine aminotransferase [En zymatic activity/volume] in Serum or PlasmaOrdered By: Rl Villavicencio on 11-10-2023 ALT [Catalytic activity/Vol] 19 U/L 7-52 [facility] Albumin [Mass/volume] in Ser um or Plasma by Bromocresol green (BCG) dye binding methoOrdered By: Rl Villavicencio on 11-10-2023 Albumin BCG dye [Mass/Vol] 4.2 g/dL 3.5-5.7 [facility] Alkaline phosphatase [Enzyma tic activity/volume] in Serum or PlasmaOrdered By: Rl Villavicencio on 11-10-2023 ALP [Catalytic activity/Vol] 60 U/L 34-104 [facility] Aspartate aminotransferase [ Enzymatic activity/volume] in Serum or PlasmaOrdered By: Rl Villavicencio on 11-10-2023 AST [Catalytic activity/Vol] 29 U/L 13-39 [facility] Bacteria [Presence] in Urine by AutomatedOrdered By: Rl Villavicencio on 11-10-2023 Bacteria Auto Ql (U) 1+ [HPF] High None Seen [facility] Basophils Auto (Bld) [#/Vol] Ordered By: Rl Villavicencio on 11-10-2023 Basophils (Bld) [#/Vol] 0.1 10*3/uL 0.0-0.2 [facility] Basophils/100 WBC Auto (Bld) Ordered By: Rl Villavicencio on 11-10-2023 Basophils/100 WBC (Bld) 0.9 % . [facility] Bilirubin Test strip Ql (U)O rdered By: Rl Villavicencio on 11-10-2023 Bilirubin Ql (U) Negative Negative [facility] Bilirubin.total [Mass/volume ] in Serum or PlasmaOrdered By: Rl Villavicencio on 11-10-2023 Bilirubin [Mass/Vol] 0.4 mg/dL 0.3-1.0 [facility] C reactive protein [Mass/vol ume] in Serum or PlasmaOrdered By: Kirt Renae on 11-10-2023 CRP [Mass/Vol] < 0.5 mg/dL 0.0-0.5 [facility] Calcium [Mass/volume] in Ser um or PlasmaOrdered By: Rl Villavicencio on 11-10-2023 Calcium [Mass/Vol] 9.6 mg/dL 8.6-10.3 [facility] Carbon dioxide, total [Moles /volume] in Serum or PlasmaOrdered By: Rl Villavicencio on 11-10-2023 CO2 [Moles/Vol] 25.4 mmol/L 21.0-31.0 [facility] Chloride [Moles/volume] in S elliot or PlasmaOrdered By: Rl Villavicencio on 11-10-2023 Chloride [Moles/Vol] 105 mmol/L 98-107 [facility] Color Auto (U)Ordered By: Claudio Villavicencio on 11-10-2023 Color (U) Light-yellow Yellow [facility] Creatine kinase [Enzymatic a ctivity/volume] in Serum or PlasmaOrdered By: Rl Villavicencio on 11-10-2023 CK [Catalytic activity/Vol] 69 U/L 30-223 [facility] Creatinine [Mass/volume] in Serum or PlasmaOrdered By: Rl Villavicencio on 11-10-2023 Creatinine [Mass/Vol] 0.93 mg/dL 0.60-1.20 [facility] Eosinophils Auto (Bld) [#/Vo l]Ordered By: Rl Villavicencio on 11-10-2023 Eosinophils (Bld) [#/Vol] 0.3 10*3/uL 0.0-0.45 [facility] Eosinophils/100 WBC Auto (Bl d)Ordered By: Rl Villavicencio on 11-10-2023 Eosinophils/100 WBC (Bld) 3.7 % . [facility] Epithelial cells.squamous [# /area] in Urine sediment by Automated countOrdered By: Rl Villavicencio on 11-10-2023 Epithelial cells.squamous Auto (Urine sed) [#/Area] 5-9 [HPF] High 0-2 [facility] Erythrocyte distribution wid th Auto (RBC) [Ratio]Ordered By: Rl Villavicencio on 11-10-2023 Erythrocyte distribution width (RBC) [Ratio] 13.5 % 11.9-15.3 [facility] Erythrocyte sedimentation ra te by Photometric methodOrdered By: Kirt Renae on 11-10-2023 ESR Photometric method (Bld) [Velocity] 40 mm/hr High 0-29 [facility] Erythrocytes [#/area] in Uri ne sediment by Automated countOrdered By: Rl Villavicencio on 11-10-2023 RBC Auto (Urine sed) [#/Area] 5-9 [HPF] High 0-4 [facility] Folate [Mass/volume] in Seru m or PlasmaOrdered By: Kirt Renae on 11-10-2023 Folate [Mass/Vol] 19.6 ng/mL >5.9 [facility] Comment on above: Folate reference ran ge: >5.9 ng/mlThe WHO technical consultation on folate and vitamin [id number] has determined that folate concentrations lessthan 4 ng/ml are considered deficient. Globulin Calc (S) [Mass/Vol] Ordered By: Rl Villavicencio on 11-10-2023 Globulin (S) [Mass/Vol] 2.9 g/dL [facility] Glucose [Mass/volume] in Ser um or PlasmaOrdered By: Rl Villavicencio on 11-10-2023 Glucose [Mass/Vol] 95 mg/dL 70-100 [facility] Comment on above: ADA recommended refe rence rangeRandom Glucose Reference Range is dependent on time and content of last meal. Glucose of more than 200 mg/dL in a nonstressed, ambulatory subject supports the diagnosis of Diabetes Mellitus. Glucose [Mass/volume] in Uri ne by Test stripOrdered By: Rl Villavicencio on 11-10-2023 Glucose Test strip (U) [Mass/Vol] 1000 mg/dL High Normal [facility] Hematocrit Auto (Bld) [Volum e fraction]Ordered By: Rl Villavicencio on 11-10-2023 Hematocrit (Bld) [Volume fraction] 44.9 % 34.0-46.4 [facility] Hemoglobin Test strip Ql (U) Ordered By: Rl Villavicencio on 11-10-2023 Hemoglobin Ql (U) Negative Negative [facility] Hemoglobin [Mass/volume] in BloodOrdered By: Rl Villavicencio on 11-10-2023 Hemoglobin (Bld) [Mass/Vol] 15.0 g/dL 11.8-15.4 [facility] Hyaline casts [#/area] in Ur ine sediment by Automated countOrdered By: Rl Villavicencio on 11-10-2023 Hyaline casts Auto (Urine sed) [#/Area] None [LPF] 0-8 [facility] Ketones Test strip Ql (U)Ord ered By: Rl Villavicencio on 11-10-2023 Ketones Ql (U) Negative Negative [facility] Leukocyte clumps [Presence] in Urine by AutomatedOrdered By: Rl Villavicencio on 11-10-2023 Leukocyte clumps Auto Ql (U) Occasional [LPF] High None Seen [facility] Leukocyte esterase [Presence ] in Urine by Test stripOrdered By: Rl Villavicencio on 11-10-2023 Leukocyte esterase Test strip Ql (U) 4+ High Negative [facility] Leukocytes [#/area] in Urine sediment by Automated countOrdered By: Rl Villavicencio on 11-10-2023 WBC Auto (Urine sed) [#/Area] 20-49 [HPF] High 0-4 [facility] Leukocytes [#/volume] correc deepika for nucleated erythrocytes in Blood by Automated counOrdered By: Rl Villavicencio on 11-10-2023 WBC corrected for nucl RBC Auto (Bld) [#/Vol] 8.5 10*3/uL 3.8-11.6 [facility] Lymphocytes Auto (Bld) [#/Vo l]Ordered By: Rl Villavicencio on 11-10-2023 Lymphocytes (Bld) [#/Vol] 2.2 10*3/uL 1.00-4.8 [facility] Lymphocytes/100 WBC Auto (Bl d)Ordered By: Rl Villavicencio on 11-10-2023 Lymphocytes/100 WBC (Bld) 26.0 % . [facility] MCH Auto (RBC) [Entitic mass ]Ordered By: Rl Villavicencio on 11-10-2023 MCH (RBC) [Entitic mass] 32.6 pg 24.7-34.3 [facility] MCHC Auto (RBC) [Mass/Vol]Or dered By: Rl Villavicencio on 11-10-2023 MCHC (RBC) [Mass/Vol] 33.3 g/dL 32.0-35.0 [facility] MCV Auto (RBC) [Entitic vol] Ordered By: Rl Villavicencio on 11-10-2023 MCV (RBC) [Entitic vol] 97.8 fL 80-100 [facility] Magnesium [Mass/volume] in S elliot or PlasmaOrdered By: Rl Villavicencio on 11-10-2023 Magnesium [Mass/Vol] 1.7 mg/dL Low 1.9-2.7 [facility] Monocyte distribution width [Entitic volume] in Blood by AutomatedOrdered By: Rl Villavicencio on 11-10-2023 Monocyte distribution width Auto (Bld) [Entitic vol] 19.74 % 0.00-20.00 [facility] Monocytes Auto (Bld) [#/Vol] Ordered By: Rl Villavicencio on 11-10-2023 Monocytes (Bld) [#/Vol] 0.7 10*3/uL 0.0-0.8 [facility] Monocytes/100 WBC Auto (Bld) Ordered By: Rl Villavicencio on 11-10-2023 Monocytes/100 WBC (Bld) 8.2 % . [facility] Neutrophils Auto (Bld) [#/Vo l]Ordered By: Rl Villavicencio on 11-10-2023 Neutrophils (Bld) [#/Vol] 5.2 10*3/uL 1.8-7.7 [facility] Neutrophils/100 WBC Auto (Bl d)Ordered By: Rl Villavicencio on 11-10-2023 Neutrophils/100 WBC (Bld) 61.2 % . [facility] Nitrite Test strip Ql (U)Ord ered By: Rl Villavicencio on 11-10-2023 Nitrite Ql (U) Negative Negative [facility] No Panel InformationOrdered By: Kirt Renae on 11-10-2023 Bedside Glucose Comment Glu2: cleaned meter [facility] No Panel InformationOrdered By: Rl Villavicencio on 11-10-2023 Estimated GFR (CKD-EPI) > 60.0 mL/Min [facility] Creatinine Clearance (Chem 66.28 [facility] Nucleated erythrocytes [Pres ence] in Blood by Automated countOrdered By: Rl Villavicencio on 11-10-2023 Nucleated RBC Auto Ql (Bld) 0.1 /100{WBC} 0-0.5 [facility] Platelet mean volume Auto (B ld) [Entitic vol]Ordered By: Rl Villavicencio on 11-10-2023 Platelet mean volume (Bld) [Entitic vol] 8.7 fL 6.3-10.7 [facility] Platelets Auto (Bld) [#/Vol] Ordered By: Rl Villavicencio on 11-10-2023 Platelets (Bld) [#/Vol] 149 10*3/uL Low 150-450 [facility] Potassium [Moles/volume] in Serum or PlasmaOrdered By: Rl Villavicencio on 11-10-2023 Potassium [Moles/Vol] 4.6 mmol/L 3.5-5.1 [facility] Comment on above: Hemolysis is present at a level that could interfere with the result.Contact lab if redraw is required Protein Test strip (U) [Mass /Vol]Ordered By: Rl Villavicencio on 11-10-2023 Protein (U) [Mass/Vol] Negative Negative [facility] Protein [Mass/volume] in Ser um or PlasmaOrdered By: Rl Villavicencio on 11-10-2023 Protein [Mass/Vol] 7.1 g/dL 6.4-8.9 [facility] RBC Auto (Bld) [#/Vol]Ordere d By: Rl Villavicencio on 11-10-2023 RBC (Bld) [#/Vol] 4.59 10*6/uL 3.60-5.00 [facility] Serum or plasma albumin/glob ulin mass ratioOrdered By: Rl Villavicencio on 11-10-2023 Albumin/Globulin [Mass ratio] 1.4 {ratio} [facility] Serum or plasma anion gap de terminationOrdered By: Rl Villavicencio on 11-10-2023 Anion gap [Moles/Vol] 11.2 mmol/L 6.0-15.0 [facility] Sodium [Moles/volume] in Ser um or PlasmaOrdered By: Rl Villavicencio on 11-10-2023 Sodium [Moles/Vol] 137 mmol/L 136-145 [facility] Specific gravity Test strip (U) [Rel density]Ordered By: Rl Villavicencio on 11-10-2023 Specific gravity (U) [Rel density] 1.007 1.001-1.03 0 [facility] Thyrotropin [Units/volume] i n Serum or PlasmaOrdered By: Jluis Campos on 11-10-2023 TSH Qn 5.73 m[IU]/L High 0.45-5.33 [facility] Urea nitrogen [Mass/volume] in Serum or PlasmaOrdered By: Rl Villavicencio on 11-10-2023 Urea nitrogen [Mass/Vol] 14 mg/dL 7-25 [facility] Urine appearanceOrdered By: Rl Villavicencio on 11-10-2023 Appearance (U) Clear Clear [facility] Urine culture routineOrdered By: Rl Villavicencio on 11-10-2023 Bacteria identified Cx Nom (U) 2 Days [facility] Urobilinogen Test strip (U) [Mass/Vol]Ordered By: Rl Villavicencio on 11-10-2023 Urobilinogen (U) [Mass/Vol] Normal mg/dL Normal [facility] Vitamin B12 ser/plasOrdered By: Kirt Renae on 11-10-2023 Cobalamin (Vitamin B12) [Mass/Vol] 306 pg/mL 180-914 [facility] Vitamin D+Metabolites [Mass/ volume] in Serum or PlasmaOrdered By: Jluis Campos on 11-10-2023 Vitamin D+Metabolites [Mass/Vol] 61.3 ng/mL 30-100 [facility] Comment on above: Hemolysis is present at [...] 11-10-2023 WBC (Bld) [#/Vol] 8.5 10*3/uL 3.8-11.6 [facility] pH Test strip (U)Ordered By: Rl Villavicencio on 11-10-2023 pH (U) 6.0 [pH] 5.0-9.0 [facility] Glucose Glucometer (BldC) [M ass/Vol]Ordered By: OSORIO WHITE on 11-09-2023 Glucose [Mass/Vol] 139 mg/dL [facility] Comment on above: Random Glucose Refer ence Range is dependent on time and content of last meal. Glucose of more than 200 mg/dL in a nonstressed, ambulatory subject supports the diagnosis of Diabetes Mellitus. Carbon dioxide, total [Moles /volume] in Serum or PlasmaOrdered By: Jonas Ch on 11-05-2023 CO2 [Moles/Vol] 28.6 mmol/L 21.0-31.0 [facility] Chloride [Moles/volume] in S elliot or PlasmaOrdered By: Jonas Ch on 11-05-2023 Chloride [Moles/Vol] 104 mmol/L 98-107 [facility] Potassium [Moles/volume] in Serum or PlasmaOrdered By: Jonas Ch on 11-05-2023 Potassium [Moles/Vol] 4.6 mmol/L 3.5-5.1 [facility] Serum or plasma anion gap de terminationOrdered By: Jonas Ch on 11-05-2023 Anion gap [Moles/Vol] 11.0 mmol/L 6.0-15.0 [facility] Sodium [Moles/volume] in Ser um or PlasmaOrdered By: Jonas Ch on 11-05-2023 Sodium [Moles/Vol] 139 mmol/L 136-145 [facility] Alanine aminotransferase [En zymatic activity/volume] in Serum or PlasmaOrdered By: Oz Kincaid on 10-30-2023 ALT [Catalytic activity/Vol] 23 U/L 7-52 [facility] Albumin [Mass/volume] in Ser um or PlasmaOrdered By: Oz Kincaid on 10-30-2023 Albumin [Mass/Vol] 4.2 g/dL 2.9-4.4 [facility] Albumin/Protein.total in 24 hour Urine by ElectrophoresisOrdered By: Oz Kincaid on 10-30-2023 Albumin Elph (24H U) [Mass fraction] 35.7 % . [facility] Alpha tocopherol [Mass/volum e] in Serum or PlasmaOrdered By: Oz Codi on 10-30-2023 Alpha tocopherol [Mass/Vol] 8.7 mg/L Low 9.0-29.0 [facility] Comment on above: This test was develo ped and its performance characteristicsdetermined by [employer]. It has not been cleared orapproved by the Food and Drug Administration. Aspartate aminotransferase [ Enzymatic activity/volume] in Serum or PlasmaOrdered By: Oz Kincaid on 10-30-2023 AST [Catalytic activity/Vol] 26 U/L 13-39 [facility] Borrelia burgdorferi Ab [Int erpretation] in SerumOrdered By: Oz Kincaid on 10-30-2023 B. burgdorferi Ab (S) [Interp] N/A [facility] Borrelia burgdorferi IgG Ab [Presence] in Serum or Plasma by ImmunoassayOrdered By: Oz Kincaid on 10-30-2023 B. burgdorferi IgG IA Ql N/A [facility] Borrelia burgdorferi IgG+IgM Ab [Presence] in Serum by ImmunoassayOrdered By: Oz Kincaid on 10-30-2023 B. burgdorferi IgG+IgM IA Ql (S) Negative Negative [facility] Comment on above: Lyme antibodies not detected. Reflex testing is notindicated.No laboratory evidence of infection with B. burgdorferi(Lyme disease). Negative results may occur in patientsrecently infected (less than or equal to 14 days) with B.burgdorferi. If recent infection is suspected, repeattesting on a new sample collected in 7 to 14 days isrecommended.Performed at: [facility] [id number] Director: Yuri Osullivan PhD, Phone: [phone] Lyme antibodies not detected. Reflex testing is notindicated.No laboratory evidence of infection with B. burgdorferi(Lyme disease). Negative results may occur in patientsrecently infected (less than or equal to 14 days) with B.burgdorferi. If recent infection is suspected, repeattesting on a new sample collected in 7 to 14 days isrecommended.Performed at: [facility] [address] [id number] Director: Yuri Osullivan PhD, Phone: [phone] Lyme antibodies not detected. Reflex testing is [...] in 7 to 14 days isrecommended.Performed at: [facility] [address] [id number] Director: Yuri Osullivan PhD, Phone: [phone] Borrelia burgdorferi IgM Ab [Presence] in Serum or Plasma by ImmunoassayOrdered By: Oz Kincaid on 10-30-2023 B. burgdorferi IgM IA Ql N/A [facility] C reactive protein [Mass/vol ume] in Serum or Plasma by High sensitivity methodOrdered By: Oz Kincaid on 10-30-2023 CRP High sensitivity method [Mass/Vol] 2.2 mg/L High 0.0-0.9 [facility] Comment on above: Cardiovascular Risk Classification (AHA/CDC)hsCRP [...] on 10-30-2023 CT biopsy 5.0 U/L 3.3-10.3 [facility] Comment on above: Performed at: [employer] [facility] [id number] [place], [place] [id number] Director: Yuri Osullivan PhD, Phone: [phone] Creatine kinase [Enzymatic a ctivity/volume] in Serum or PlasmaOrdered By: Oz Kincaid on 10-30-2023 CK [Catalytic activity/Vol] 46 U/L 30-223 [facility] Erythrocyte sedimentation ra te by Photometric methodOrdered By: Oz Kincaid on 10-30-2023 ESR Photometric method (Bld) [Velocity] 26 mm/hr 0-29 [facility] Folate [Mass/volume] in Seru m or PlasmaOrdered By: Oz Kincaid on 10-30-2023 Folate [Mass/Vol] 34.0 ng/mL >5.9 [facility] Comment on above: Folate reference ran ge: >5.9 ng/mlThe WHO technical consultation on folate and vitamin [id number] has determined that folate concentrations lessthan 4 ng/ml are considered deficient. Gamma globulin/Protein.total in 24 hour Urine by ElectrophoresisOrdered By: Oz Kincaid on 10-30-2023 Gamma globulin Elph (24H U) [Mass fraction] 23.2 % . [facility] Gamma-tocopherol measurement (mass/volume)Ordered By: Oz Kincaid on 10-30-2023 Gamma tocopherol [Mass/Vol] 0.7 mg/L 0.5-4.9 [facility] Comment on above: This test was develo ped and its performance characteristicsdetermined by [facility]. It has not been cleared orapproved by the Food and Drug Administration.Reference intervals for alpha and gamma-tocopheroldetermined from National Health and Nutrition ExaminationSurvey, 5576-9906. Individuals with alpha-tocopherol levelsless than 5.0 mg/L are considered vitamin E deficient. Glucose mean value [Mass/vol ume] in Blood Estimated from glycated hemoglobinOrdered By: Oz Kinacid on 10-30-2023 Average glucose Estimated from glycated hemoglobin (Bld) [Mass/Vol] 143 mg/dL [facility] Hemoglobin A1c percentageOrd ered By: Oz Kincaid on 10-30-2023 HbA1c (Bld) [Mass fraction] 6.6 % High 4.3-5.6 [facility] Comment on above: Increased risk for d iabetes: 5.7 - 6.4diabetes: >6.4glycemic control for adults with diabetes: <7.0 IgA [Mass/volume] in Serum o r PlasmaOrdered By: Oz Kincaid on 10-30-2023 IgA [Mass/Vol] 265 mg/dL 87-352 [facility] IgG [Mass/volume] in Serum o r PlasmaOrdered By: Oz Kincaid on 10-30-2023 IgG [Mass/Vol] 1034 mg/dL 586-1602 [facility] IgM [Mass/volume] in Serum o r PlasmaOrdered By: Oz Kincaid on 10-30-2023 IgM [Mass/Vol] 48 mg/dL 26-217 [facility] Comment on above: Performed at: [facility] [address] [id number] Director: Yuri Osullivan PhD, Phone: [employer] Immun[employer]ixation for UrineOrde red By: Oz Kincaid on 10-30-2023 Interpretation Immunofixation (U) [Interp] See comment . [facility] Comment on above: No monoclonality det ected.Performed at: [employer] [facility] [address] [id number] Director: Yuri Osullivan PhD, Phone: [phone] No Panel InformationOrdered By: Oz Kincaid on 10-30-2023 Anti-Nuclear Antibody Comment 2 See comment . [facility] Comment on above: Pattern Potential Di sease Association Homogeneous Systemic Lupus Erythematosus, Drug Induced Systemic Lupus Erythematosus, Chronic Autoimmune hepatitis, Juvenile Idiopathic Arthritis Speckled Sjogren Syndrome, Systemic Lupus Erythematosus, Subacute Cutaneous Lupus, Lupus, Congenital Heart Block, Mixed Connective Tissue Disease, Scleroderma-diffuse, Scleroderma-Autoimmune Myositis Overlap Syndrome, Systemic Lupus Ukjstqwzbasue-Hpfzglzeioe-Ijfkfxpdwb Myositis Overlap Syndrome, Systemic Autoimmune Rheumatic Disease, [...] Cytopenias, Linear Scleroderma, Antiphospholipid Syndrome Performed at: [address] [id number] Director: Christine Pham MD, Phone: [phone] at: [address] [id number] Director: Yuri Osullivan PhD, Phone: [phone] Pattern Potential Di katia Association Homogeneous Systemic Lupus Erythematosus, Drug Induced Systemic Lupus Erythematosus, Chronic Autoimmune hepatitis, Juvenile Idiopathic Arthritis Speckled Sjogren Syndrome, Systemic Lupus Erythematosus, Subacute Cutaneous Lupus, Lupus, Congenital Heart Block, Mixed Connective Tissue Disease, Scleroderma-diffuse, Scleroderma-Autoimmune Myositis Overlap Syndrome, Systemic Lupus Pstogbwbtuwlv-Cozzkmilajq-Zyaeldmsaj Myositis Overlap Syndrome, Systemic Autoimmune Rheumatic Disease, [...] Linear Scleroderma, Antiphospholipid Syndrome Performed at: - [facility] [id number] [place], [place] [id number] Director: Christine Pham MD, Phone: [phone] at: [facility] [id number] Director: Yuri Osullivan PhD, Phone: [phone] Pattern Potential Disease Association Homogeneous Systemic Lupus Erythematosus, Drug Induced Systemic Lupus Erythematosus, Chronic Autoimmune hepatitis, Juvenile Idiopathic Arthritis Speckled Sjogren Syndrome, Systemic Lupus Erythematosus, Subacute Cutaneous Lupus, Lupus, Congenital Heart Block, Mixed Connective Tissue Disease, Scleroderma-diffuse, Scleroderma-Autoimmune Myositis Overlap Syndrome, Systemic Lupus Keitsozeacids-Rttmzkmqhvv-Bfofxyjghe Myositis Overlap Syndrome, Systemic Autoimmune Rheumatic Disease, [...] Cytopenias, Linear Scleroderma, Antiphospholipid Syndrome Performed at: [facility] [address] [id number] Director: Yuri Osullivan PhD, Phone: [phone] at: [facility] [address] [id number] Director: Christine Pham MD, Phone: [phone] --- 11/06/23 1236 ---BEATRICE ELLIS Note 1 previously reported as: Pattern Potential Disease Association Homogeneous Systemic Lupus Erythematosus, Drug Induced Systemic Lupus Erythematosus, Chronic Autoimmune hepatitis, Juvenile Idiopathic Arthritis Speckled Sjogren Syndrome, Systemic Lupus Erythematosus, Subacute Cutaneous Lupus, Lupus, Congenital Heart Block, Mixed Connective Tissue Disease, Scleroderma-diffuse, Scleroderma-Autoimmune Myositis Overlap Syndrome, Systemic Lupus Vnzwmbmruwyqe-Rztknlhohys-Tufjzhupyc Myositis Overlap Syndrome, Systemic Autoimmune Rheumatic Disease, [...] (more content not included)... Lactate/Pyruvate Interpretation N/A [facility] Plasma Lactic Acid, Venous See comment . [facility] Comment on above: Test not performed. Supernatant is required.CONTACTED YOUR FACILity on 11-05-2023 Protein Electrophoresis M-Meir Not observed g/dL Not Observed [facility] Protein Electrophoresis Note See comment . [facility] Comment on above: Protein electrophore sis scan will follow via computer,mail, or appraiser timber delivery. Pyruvic Acid See comment . [facility] Comment on above: Test not performed Serum Immunofixation See comment . [facility] Comment on above: No monoclonality det ected. Urine Random Prot Electrophor Note See comment . [facility] Comment on above: Protein electrophore sis scan will follow via computer,mail, or appraiser timber delivery.Performed at: [address] [id number] Director: Yuri Osullivan PhD, Phone: [phone] Whole Blood Zinc 909 ug/dL High 440-860 [facility] Comment on above: This test was develo ped and its performance characteristicsdetermined by [employer]. It has not been cleared orapproved by the Food and Drug Administration.Performed at: [address] [id number] Director: Christine Pham MD, Phone: [phone] This test was develo ped and its performance characteristicsdetermined by [employer]. It has not been cleared orapproved by the Food and Drug Administration.Performed at: [address] [id number] Director: Christine Pham MD, Phone: [phone] This test was developed and its performance characteristicsdetermined by [employer]. It has not been cleared orapproved by the Food and Drug Administration. --- 11/06/23 1236 ---Zinc,WB previously reported as: 909 H ug/dLThis test was developed and its performance characteristicsdetermined by [employer]. It has not been cleared orapproved by the Food and Drug Administration.Performed at: [address] [id number] Director: Christine Pham MD, Phone: [phone] Protein [Mass/volume] in Ser um or PlasmaOrdered By: zO Kincaid on 10-30-2023 Protein [Mass/Vol] 7.7 g/dL 6.0-8.5 [facility] Protein [Mass/volume] in Uri neOrdered By: Oz Kincaid on 10-30-2023 Protein (U) [Mass/Vol] 28.8 mg/dL Not Estab. [facility] Protein.monoclonal/Protein.t otal in 24 hour Urine by ElectrophoresisOrdered By: Oz Kincaid on 10-30-2023 Protein.monoclonal Elph (24H U) [Mass fraction] Not observed % Not Observed [facility] Reagin Ab [Presence] in Seru m by RPROrdered By: Oz Kincaid on 10-30-2023 Reagin Ab RPR Ql (S) Non-Reactive Non Reactive [facility] Comment on above: Performed at: [employer] [address] [id number] Director: Yuri Osullivan PhD, Phone: [phone] Serum West Nile virus IgG an tibody detection by immunoassayOrdered By: Oz Kincaid on 10-30-2023 West Nile virus IgG IA Ql (S) Negative Negative [facility] Serum West Nile virus IgM an tibody detection by immunoassayOrdered By: Oz Kincaid on 10-30-2023 West Nile virus IgM IA Ql (S) Negative Negative [facility] Comment on above: Performed at: [employer] [address] [id number] Director: Christine Pham MD, Phone: [phone] Serum globulin measurement ( mass/volume)Ordered By: Oz Kincaid on 10-30-2023 Globulin (S) [Mass/Vol] 3.5 g/dL 2.2-3.9 [facility] Serum homogeneous pattern an tinuclear antibody (BEATRICE) titerOrdered By: Oz Kincaid on 10-30-2023 Homogenous nuclear Ab pattern (S) [Titer] N/A [facility] Serum nuclear antibody titer Ordered By: Oz Kincaid on 10-30-2023 Nuclear Ab (S) [Titer] Positive Abnormal . [facility] Comment on above: Negative <1:80 Borde rline 1:80 Positive >1:80 Serum or plasma albumin/glob ulin mass ratioOrdered By: Oz Kincaid on 10-30-2023 Albumin/Globulin [Mass ratio] 1.2 {ratio} 0.7-1.7 [facility] Serum or plasma alpha 1 glob ulin measurement by electrophoresis (mass/volume)Ordered By: Oz Kincaid on 10-30-2023 Alpha 1 globulin Elph [Mass/Vol] 0.3 g/dL 0.0-0.4 [facility] Serum or plasma alpha 2 glob ulin measurement by electrophoresis (mass/volume)Ordered By: Oz Kincaid on 10-30-2023 Alpha 2 globulin Elph [Mass/Vol] 1.0 g/dL 0.4-1.0 [facility] Serum or plasma beta globuli n measurement by electrophoresis (mass/volume)Ordered By: Oz Kincaid on 10-30-2023 Beta globulin Elph [Mass/Vol] 1.1 g/dL 0.7-1.3 [facility] Serum or plasma ceruloplasmi n measurement (mass/volume)Ordered By: Oz Kincaid on 10-30-2023 Ceruloplasmin [Mass/Vol] 30.1 mg/dL 19.0-39.0 [facility] Comment on above: Performed at: [address] [place], [place] [id number] Director: Yuri Osullivan PhD, Phone: [phone] Serum or plasma gamma globul in measurement by electrophoresis (mass/volume)Ordered By: Oz Kincaid on 10-30-2023 Gamma globulin Elph [Mass/Vol] 1.1 g/dL 0.4-1.8 [facility] Serum or plasma homocysteine measurement (moles/volume)Ordered By: Oz Kincaid on 10-30-2023 Homocysteine [Moles/Vol] 20.7 umol/L High 0.0-17.2 [facility] Comment on above: Performed at: [facility] [place], [place] [id number] Director: Yuri Osullivan PhD, Phone: [phone] Serum or plasma lutropin coleman surement (units/volume)Ordered By: Oz Kincaid on 10-30-2023 Lutropin Qn 60.4 m[IU]/mL High 7.7-58.5 [facility] Comment on above: Adult Female Range F ollicular phase 2.4 - 12.6 Ovulation phase 14.0 - 95.6 Luteal phase 1.0 - 11.4 Postmenopausal 7.7 - 58.5 Serum or plasma methylmalona te measurement (moles/volume)Ordered By: Oz Kincaid on 10-30-2023 Methylmalonate [Moles/Vol] 247 nmol/L 0-378 [facility] Comment on above: This test was develo ped and its performance characteristicsdetermined by [employer]. It has not been cleared orapproved by the Food and Drug Administration.Performed at: [address] [id number] Director: Christine Pham MD, Phone: [phone] This test was develo ped and its performance characteristicsdetermined by [employer]. It has not been cleared orapproved by the Food and Drug Administration.Performed at: [address] [id number] Director: Christine Pham MD, Phone: [phone] This test was developed and its performance characteristicsdetermined by [employer]. It has not been cleared orapproved by the Food and Drug Administration. --- 11/06/23 1236 ---Methylmal Acid previously reported as: 247 nmol/LThis test was developed and its performance characteristicsdetermined by [employer]. It has not been cleared orapproved by the Food and Drug Administration.Performed at: [address] [id number] Director: Christine Pham MD, Phone: [phone] Serum or plasma pyridoxine m easurement (mass/volume)Ordered By: Oz Kincaid on 10-30-2023 Pyridoxine [Mass/Vol] 8.8 ug/L 3.4-65.2 [facility] Comment on above: This test was develo ped and its performance characteristicsdetermined by [employer]. It has not been cleared orapproved by the Food and Drug Administration. Deficiency: <3.4 Marginal: 3.4 - 5.1 Adequate: >5.1Performed at: [address] [id number] Director: Christine Pham MD, Phone: [phone] Serum or plasma rheumatoid f actor measurement (units/volume)Ordered By: Oz Kincaid on 10-30-2023 Rheumatoid factor Qn [IU]/mL <14.0 [facility] Serum speckled pattern antin uclear antibody (BEATRICE) titerOrdered By: Oz Kincaid on 10-30-2023 Speckled nuclear Ab pattern (S) [Titer] 1:80 . [facility] Comment on above: ICAP nomenclature: A C-2,4,5,29 Thyrotropin [Units/volume] i n Serum or PlasmaOrdered By: Oz Kincaid on 10-30-2023 TSH Qn 6.38 m[IU]/L High 0.45-5.33 [facility] Thyroxine (T4) free [Mass/vo lume] in Serum or PlasmaOrdered By: Oz Kincaid on 10-30-2023 Free T4 [Mass/Vol] 0.89 ng/dL 0.61-1.12 [facility] Urine alpha 1 globulin/total protein by electrophoresisOrdered By: Oz Kincaid on 10-30-2023 Alpha 1 globulin Elph (U) [Mass fraction] 0.4 % . [facility] Urine alpha 2 globulin/total protein ratio by electrophoresisOrdered By: Oz Kincaid on 10-30-2023 Alpha 2 globulin Elph (U) [Mass fraction] 8.9 % . [facility] Urine beta globulin measurem ent by electrophoresis (mass/volume)Ordered By: Oz Kincaid on 10-30-2023 Beta globulin Elph (U) [Mass/Vol] 31.7 % . [facility] Vitamin B12 ser/plasOrdered By: Oz Kincaid on 10-30-2023 Cobalamin (Vitamin B12) [Mass/Vol] 300 pg/mL 180-914 [facility] Glucose Glucometer (BldC) [M ass/Vol]Ordered By: Elva Florian on 09-14-2023 Glucose [Mass/Vol] 134 mg/dL [facility] Comment on above: Random Glucose Refer ence Range is dependent on time and content of last meal. Glucose of more than 200 mg/dL in a nonstressed, ambulatory subject supports the diagnosis of Diabetes Mellitus. No Panel InformationOrdered By: Elva Florian on 09-14-2023 Bedside Glucose Comment Glu2: cleaned meter [facility] Cholesterol [Mass/volume] in Serum or PlasmaOrdered By: Elva Florian on 09-13-2023 Cholesterol [Mass/Vol] 125 mg/dL Low 140-200 [facility] Comment on above: Chol less than 200 m g/dl low riskChol 201-239 mg/dl borderline riskChol 240 mg/dl and greater high risk Cholesterol in LDL Calc [Mas s/Vol]Ordered By: Elva Florian on 09-13-2023 Cholesterol in LDL [Mass/Vol] 59 mg/dL 0-100 [facility] Comment on above: LDL ATP III CLASSIFI CATIONLDL less than 100 mg/dL OptimalLDL 100-129 mg/dL Near or above optimalLDL 130-159 mg/dL Borderline highLDL 160-189 mg/dL HighLDL greater than 189 mg/dL Very high Cholesterol in VLDL Calc [Ma ss/Vol]Ordered By: Elva Florian on 09-13-2023 Cholesterol in VLDL [Mass/Vol] 39 mg/dL [facility] Magnesium [Mass/volume] in S elliot or PlasmaOrdered By: Elva Florian on 09-13-2023 Magnesium [Mass/Vol] 1.6 mg/dL Low 1.9-2.7 [facility] Serum or plasma high density lipoprotein (HDL) cholesterol measurementOrdered By: Elva Florian on 09-13-2023 Cholesterol in HDL [Mass/Vol] 26 mg/dL 23-92 [facility] Comment on above: HDL CHOL ATP-III CLA SSIFICATION Cardiovascular RiskHDL > or equal to 60 mg/dL LOWHDL < 40 mg/dL HIGH Serum or plasma total choles terol/high density lipoprotein (HDL) cholesterol mass ratOrdered By: Elva Florian on 09-13-2023 Cholesterol.total/Monica sterol in HDL [Mass ratio] 4.8 {ratio} <5.0 [facility] Thyrotropin [Units/volume] i n Serum or PlasmaOrdered By: Elva Florian on 09-13-2023 TSH Qn 2.48 m[IU]/L 0.45-5.33 [facility] Triglyceride [Mass/volume] i n Serum or PlasmaOrdered By: Elva Florian on 09-13-2023 Triglyceride [Mass/Vol] 198 mg/dL High 0-149 [facility] Comment on above: TRIG ATP [...] aPTT Coag (PPP) [Time] 29.3 s 25.1-36.5 [facility] Comment on above: A hematocrit value g reater than 55% may lead to inaccurate results in coagulation testing. Patients having hematocrit values >55% require a special collection tube for coagulation studies. Please contact the laboratory at [phone] for redraw instructions. Basophils Auto (Bld) [#/Vol] Ordered By: Edgar Valenzuela on 09-12-2023 Basophils (Bld) [#/Vol] 0.1 10*3/uL 0.0-0.2 [facility] Basophils/100 WBC Auto (Bld) Ordered By: Edgar Valenzuela on 09-12-2023 Basophils/100 WBC (Bld) 0.9 % . [facility] Calcium [Mass/volume] in Ser um or PlasmaOrdered By: Edgar Valenzuela on 09-12-2023 Calcium [Mass/Vol] 10.5 mg/dL High 8.6-10.3 [facility] Carbon dioxide, total [Moles /volume] in Serum or PlasmaOrdered By: Edgar Valenzuela on 09-12-2023 CO2 [Moles/Vol] 25.0 mmol/L 21.0-31.0 [facility] Chloride [Moles/volume] in S elliot or PlasmaOrdered By: Edgar Valenzuela on 09-12-2023 Chloride [Moles/Vol] 102 mmol/L 98-107 [facility] Creatine kinase [Enzymatic a ctivity/volume] in Serum or PlasmaOrdered By: Edgar Valenzuela on 09-12-2023 CK [Catalytic activity/Vol] 45 U/L 30-223 [facility] Creatinine [Mass/volume] in Serum or PlasmaOrdered By: Edgar Valenzuela on 09-12-2023 Creatinine [Mass/Vol] 0.84 mg/dL 0.60-1.20 [facility] Eosinophils Auto (Bld) [#/Vo l]Ordered By: Edgar Valenzuela on 09-12-2023 Eosinophils (Bld) [#/Vol] 0.2 10*3/uL 0.0-0.45 [facility] Eosinophils/100 WBC Auto (Bl d)Ordered By: Edgar Valenzuela on 09-12-2023 Eosinophils/100 WBC (Bld) 1.7 % . [facility] Erythrocyte distribution wid th Auto (RBC) [Ratio]Ordered By: dEgar Valenzuela on 09-12-2023 Erythrocyte distribution width (RBC) [Ratio] 12.7 % 11.9-15.3 [facility] Glucose [Mass/volume] in Ser um or PlasmaOrdered By: Edgar Valenzuela on 09-12-2023 Glucose [Mass/Vol] 150 mg/dL High 70-100 [facility] Comment on above: ADA recommended refe rence rangeRandom Glucose Reference Range is dependent on time and content of last meal. Glucose of more than 200 mg/dL in a nonstressed, ambulatory subject supports the diagnosis of Diabetes Mellitus. HbA1c HPLC (Bld) [Mass fract ion]on 09-12-2023 HbA1c (Bld) [Mass fraction] 6.6 % [facility] Hematocrit Auto (Bld) [Volum e fraction]Ordered By: Edgar Valenzuela on 09-12-2023 Hematocrit (Bld) [Volume fraction] 49.3 % High 34.0-46.4 [facility] Hemoglobin [Mass/volume] in BloodOrdered By: Edgar Valenzuela on 09-12-2023 Hemoglobin (Bld) [Mass/Vol] 16.9 g/dL High 11.8-15.4 [facility] INR in Platelet poor plasma by Coagulation assayOrdered By: Edgar Valenzuela on 09-12-2023 INR Coag (PPP) [Relative time] 1.1 {INR} [facility] Comment on above: INR Therapeutic Rang e [...] RBC Auto (Bld) [#/Vol] 9.8 10*3/uL 3.8-11.6 [facility] Lymphocytes Auto (Bld) [#/Vo l]Ordered By: Edgar Valenzuela on 09-12-2023 Lymphocytes (Bld) [#/Vol] 2.0 10*3/uL 1.00-4.8 [facility] Lymphocytes/100 WBC Auto (Bl d)Ordered By: Edgar Valenzuela on 09-12-2023 Lymphocytes/100 WBC (Bld) 20.2 % . [facility] MCH Auto (RBC) [Entitic mass ]Ordered By: Edgar Valenzuela on 09-12-2023 MCH (RBC) [Entitic mass] 32.7 pg 24.7-34.3 [facility] MCHC Auto (RBC) [Mass/Vol]Or dered By: Edgar Valenzuela on 09-12-2023 MCHC (RBC) [Mass/Vol] 34.2 g/dL 32.0-35.0 [facility] MCV Auto (RBC) [Entitic vol] Ordered By: Edgar Valenzuela on 09-12-2023 MCV (RBC) [Entitic vol] 95.6 fL 80-100 [facility] Monocyte distribution width [Entitic volume] in Blood by AutomatedOrdered By: Edgar Valenzuela on 09-12-2023 Monocyte distribution width Auto (Bld) [Entitic vol] 19.90 % 0.00-20.00 [facility] Monocytes Auto (Bld) [#/Vol] Ordered By: Edgar Valenzuela on 09-12-2023 Monocytes (Bld) [#/Vol] 0.6 10*3/uL 0.0-0.8 [facility] Monocytes/100 WBC Auto (Bld) Ordered By: Edgar Valenzuela on 09-12-2023 Monocytes/100 WBC (Bld) 5.9 % . [facility] Natriuretic peptide B [Mass/ Vol]Ordered By: Edgar Valenzuela on 09-12-2023 Natriuretic peptide B (Bld) [Mass/Vol] 112.0 pg/mL High 5-100 [facility] Neutrophils Auto (Bld) [#/Vo l]Ordered By: Edgar Valenzuela on 09-12-2023 Neutrophils (Bld) [#/Vol] 7.0 10*3/uL 1.8-7.7 [facility] Neutrophils/100 WBC Auto (Bl d)Ordered By: Edgar Valenzuela on 09-12-2023 Neutrophils/100 WBC (Bld) 71.3 % . [facility] No Panel InformationOrdered By: Edgar Valenzuela on 09-12-2023 Estimated GFR (CKD-EPI) > 60.0 mL/Min [facility] Creatinine Clearance (Chem 73.11 [facility] No Panel Informationon 09-11 Bedside Glucose 151 [facility] Nucleated erythrocytes [Pres ence] in Blood by Automated countOrdered By: Edgar Valenzuela on 09-12-2023 Nucleated RBC Auto Ql (Bld) 0.2 /100{WBC} 0-0.5 [facility] Platelet mean volume Auto (B ld) [Entitic vol]Ordered By: Edgar Valenzuela on 09-12-2023 Platelet mean volume (Bld) [Entitic vol] 9.5 fL 6.3-10.7 [facility] Platelets Auto (Bld) [#/Vol] Ordered By: Edgar Valenzuela on 09-12-2023 Platelets (Bld) [#/Vol] 195 10*3/uL 150-450 [facility] Potassium [Moles/volume] in Serum or PlasmaOrdered By: Edgar Valenzuela on 09-12-2023 Potassium [Moles/Vol] 4.0 mmol/L 3.5-5.1 [facility] Prothrombin time (PT)Ordered By: Edgar Valenzuela on 09-12-2023 PT Coag (PPP) [Time] 12.7 s 9.0-12.9 [facility] Comment on above: A hematocrit value g reater than 55% may lead to inaccurate results in coagulation testing. Patients having hematocrit values >55% require a special collection tube for coagulation studies. Please contact the laboratory at [phone] for redraw instructions. RBC Auto (Bld) [#/Vol]Ordere d By: Edgar Valenzuela on 09-12-2023 RBC (Bld) [#/Vol] 5.16 10*6/uL High 3.60-5.00 [facility] Serum or plasma anion gap de terminationOrdered By: Edgar Valenzuela on 09-12-2023 Anion gap [Moles/Vol] 15.0 mmol/L 6.0-15.0 [facility] Sodium [Moles/volume] in Ser um or PlasmaOrdered By: Edgar Valenzuela on 09-12-2023 Sodium [Moles/Vol] 138 mmol/L 136-145 [facility] Troponin I.cardiac [Mass/vol ume] in Serum or Plasma by Detection limit <= 0.01 ng/Ordered By: Edgar Valenzuela on 09-12-2023 Troponin I.cardiac DL <= 0.01 ng/mL [Mass/Vol] 7.3 pg/mL 0.0-15.0 [facility] Urea nitrogen [Mass/volume] in Serum or PlasmaOrdered By: Edgar Valenzuela on 09-12-2023 Urea nitrogen [Mass/Vol] 11 mg/dL 7 [facility] WBC Auto (Bld) [#/Vol]Ordere d By: Edgar Valenzuela on 09-12-2023 WBC (Bld) [#/Vol] 9.8 10*3/uL 3.8-11.6 [facility] Alanine aminotransferase [En zymatic activity/volume] in Serum or PlasmaOrdered By: Angelique Russell on 09-05-2023 ALT [Catalytic activity/Vol] 19 U/L 7 [facility] Albumin [Mass/volume] in Ser um or Plasma by Bromocresol green (BCG) dye binding methoOrdered By: Angelique Russell on 09-05-2023 Albumin BCG dye [Mass/Vol] 4.3 g/dL 3.5-5.7 [facility] Alkaline phosphatase [Enzyma tic activity/volume] in Serum or PlasmaOrdered By: Angelique Russell on 09-05-2023 ALP [Catalytic activity/Vol] 81 U/L 34-104 [facility] Aspartate aminotransferase [ Enzymatic activity/volume] in Serum or PlasmaOrdered By: Angelique Russell on 09-05-2023 AST [Catalytic activity/Vol] 26 U/L 13-39 [facility] Bilirubin.total [Mass/volume ] in Serum or PlasmaOrdered By: Angelique Russell on 09-05-2023 Bilirubin [Mass/Vol] 0.7 mg/dL 0.3-1.0 [facility] Calcium [Mass/volume] in Ser um or PlasmaOrdered By: Angelique Russell on 09-05-2023 Calcium [Mass/Vol] 10.2 mg/dL 8.6-10.3 [facility] Carbon dioxide, total [Moles /volume] in Serum or PlasmaOrdered By: Angelique Russell on 09-05-2023 CO2 [Moles/Vol] 28.6 mmol/L 21.0-31.0 [facility] Chloride [Moles/volume] in S elliot or PlasmaOrdered By: Angelique Russell on 09-05-2023 Chloride [Moles/Vol] 102 mmol/L 98-107 [facility] Cholesterol [Mass/volume] in Serum or PlasmaOrdered By: Angelique Russell on 09-05-2023 Cholesterol [Mass/Vol] 143 mg/dL 140-200 [facility] Comment on above: Chol less than 200 m g/dl low riskChol 201-239 mg/dl borderline riskChol 240 mg/dl and greater high risk Cholesterol in LDL Calc [Mas s/Vol]Ordered By: Angelique Russell on 09-05-2023 Cholesterol in LDL [Mass/Vol] 62 mg/dL 0-100 [facility] Comment on above: LDL ATP III CLASSIFI CATIONLDL less than 100 mg/dL OptimalLDL 100-129 mg/dL Near or above optimalLDL 130-159 mg/dL Borderline highLDL 160-189 mg/dL HighLDL greater than 189 mg/dL Very high Cholesterol in VLDL Calc [Ma ss/Vol]Ordered By: Angelique Russell on 09-05-2023 Cholesterol in VLDL [Mass/Vol] 51 mg/dL [facility] Creatinine [Mass/volume] in Serum or PlasmaOrdered By: Angelique Russell on 09-05-2023 Creatinine [Mass/Vol] 0.91 mg/dL 0.60-1.20 [facility] Creatinine [Mass/volume] in UrineOrdered By: Barbera Yvonne on 09-05-2023 Creatinine (U) [Mass/Vol] 118.0 mg/dL [facility] Comment on above: No reference range e stablished Globulin Calc (S) [Mass/Vol] Ordered By: Barbera Yvonne on 09-05-2023 Globulin (S) [Mass/Vol] 2.7 g/dL [facility] Glucose [Mass/volume] in Ser um or PlasmaOrdered By: Angelique Russell on 09-05-2023 Glucose [Mass/Vol] 197 mg/dL High 70-100 [facility] Comment on above: ADA recommended refe rence rangeRandom Glucose Reference Range is dependent on time and content of last meal. Glucose of more than 200 mg/dL in a nonstressed, ambulatory subject supports the diagnosis of Diabetes Mellitus. Microalbumin [Mass/volume] i n UrineOrdered By: Angelique Russell on 09-05-2023 Albumin DL <= 20 mg/L (U) [Mass/Vol] 18.4 mg/dL High 0.0-1.8 [facility] No Panel InformationOrdered By: Barbera Yvonne on 09-05-2023 Estimated GFR (CKD-EPI) > 60.0 mL/Min [facility] Creatinine Clearance (Chem N/A [facility] Potassium [Moles/volume] in Serum or PlasmaOrdered By: Barbera Map on 09-05-2023 Potassium [Moles/Vol] 4.2 mmol/L 3.5-5.1 [facility] Protein [Mass/volume] in Ser um or PlasmaOrdered By: Tondra Mapus on 09-05-2023 Protein [Mass/Vol] 7.0 g/dL 6.4-8.9 [facility] Serum or plasma albumin/glob ulin mass ratioOrdered By: Barbera Mapus on 09-05-2023 Albumin/Globulin [Mass ratio] 1.6 {ratio} [facility] Serum or plasma anion gap de terminationOrdered By: Angelique Russell on 09-05-2023 Anion gap [Moles/Vol] 13.6 mmol/L 6.0-15.0 [facility] Serum or plasma high density lipoprotein (HDL) cholesterol measurementOrdered By: Angelique Russell on 09-05-2023 Cholesterol in HDL [Mass/Vol] 30 mg/dL 23- [facility] Comment on above: HDL CHOL ATP-III CLA SSIFICATION Cardiovascular RiskHDL > or equal to 60 mg/dL LOWHDL < 40 mg/dL HIGH Serum or plasma total choles terol/high density lipoprotein (HDL) cholesterol mass ratOrdered By: Angelique Russell on 09-05-2023 Cholesterol.total/Monica sterol in HDL [Mass ratio] 4.8 {ratio} <5.0 [facility] Sodium [Moles/volume] in Ser um or PlasmaOrdered By: Angelique Russell on 09-05-2023 Sodium [Moles/Vol] 140 mmol/L 136-145 [facility] Triglyceride [Mass/volume] i n Serum or PlasmaOrdered By: Angelique Russell on 09-05-2023 Triglyceride [Mass/Vol] 256 mg/dL High 0-149 [facility] Comment on above: TRIG ATP III CLASSIF ICATIONTRIG less than 150 mg/dL NormalTRIG 150-199 mg/dL Borderline highTRIG 200-500 mg/dL High TRIG greater than 500 mg/dL Very highStandard traceable to the Center for Disease Conrtrol and Prevention (CDC) test method. Urea nitrogen [Mass/volume] in Serum or PlasmaOrdered By: Angelique Russell on 09-05-2023 Urea nitrogen [Mass/Vol] 12 mg/dL 7 [facility] Urine microalbumin/creatinin e mass ratioOrdered By: Angelique Russell on 09-05-2023 Albumin/Creatinine DL <= 20 mg/L (U) [Mass ratio] 155.0 mg/g High 0.0-30.0 [facility] Comment on above: 30-300 mg/g indicate s an increased risk for diabetic nephropathy. Greater than 300 mg/g is consistent with clinical nephropathy. (Am. J. Kidney Disease 1995, 25:107) Vitamin B12 ser/plasOrdered By: Angelique Russell on 09-05-2023 Cobalamin (Vitamin B12) [Mass/Vol] 255 pg/mL 180-914 [facility] Laboratory - Hematology and Cell countson 06-12-2023 HbA1c (Bld) [Mass fraction] 7.2 % [facility] No Panel Informationon 06-12 Bedside Glucose 197 [facility] A1C HEMOGLOBINon 01-07-2023 HbA1c (Bld) [Mass fraction] 6.3 % [employer] Other Glucose - [employer] Glucose [Mass/Vol] 196 mg/dL [employer] Other HbA1c (Bld) [Mass fraction]o n 01-07-2023 A1C HEMOGLOBIN [employer] Other A1C HEMOGLOBINon 09-27-2022 HbA1c (Bld) [Mass fraction] 6.6 % [employer] Other Glucose - FINGER [employer]on Glucose [Mass/Vol] 128 mg/dL [employer] Other HbA1c (Bld) [Mass fraction]o n 09-27-2022 A1C HEMOGLOBIN [employer] Other A1C HEMOGLOBINon 06-18-2022 HbA1c (Bld) [Mass fraction] 7.1 % [employer] Other Glucose - [employer] Glucose [Mass/Vol] 219 mg/dL [employer] Other HbA1c (Bld) [Mass fraction]o n 06-18-2022 A1C HEMOGLOBIN [employer] Other A1C HEMOGLOBINon 01-09-2022 HbA1c (Bld) [Mass fraction] 7.7 % [employer] Other Glucose - [employer] Glucose [Mass/Vol] 242 mg/dL [facility] [employer] Other HbA1c (Bld) [Mass fraction]o n 01-09-2022 A1C HEMOGLOBIN [facility] [employer] Other Consultation Noteon 12-26-19 Consultation Note [id number]: 127 Normal [facility] Insurance Correspondence Off iceon 12-20-2021 Insurance Correspondence Office [id number]: 127 Normal [facility] Urine culture routineOrdered By: Milo Watters on 12-19-2021 Bacteria identified Cx Nom (U) Zeny albicans [facility] Albumin [Mass/volume] in Ser um or PlasmaOrdered By: Milo Watters on 12-17-2021 Albumin [Mass/Vol] 3.4 g/dL 3.2-5.5 [facility] Automated erythrocytes count in urine sediment (number/area)Ordered By: Milo Watters on 12-17-2021 RBC Auto (Urine sed) [#/Area] 3-4 [HPF] 0-4 [facility] Automated leukocytes count i n urine sediment (number/area)Ordered By: Milo Watters on 12-17-2021 WBC Auto (Urine sed) [#/Area] 50-100 [HPF] 0-4 [facility] Automated urine hyaline cast s count (number/volume)Ordered By: Milo Watters on 12-17-2021 Hyaline casts Auto (U) [#/Vol] None seen [LPF] 0-1 [facility] Basophils Auto (Bld) [#/Vol] Ordered By: Milo Watters on 12-17-2021 Basophils (Bld) [#/Vol] 0.1 10*3/uL 0.0-0.2 [facility] Basophils/100 WBC Auto (Bld) Ordered By: Milo Watters on 12-17-2021 Basophils/100 WBC (Bld) 0.5 % . [facility] Bilirubin Test strip Ql (U)O rdered By: Milo Watters on 12-17-2021 Bilirubin Ql (U) Negative Negative [facility] Blood hemoglobin measurement (mass/volume)Ordered By: Milo Watters on 12-17-2021 Hemoglobin (Bld) [Mass/Vol] 16.1 g/dL 11.8-15.4 [facility] Blood leukocytes automated c ount (number/volume)Ordered By: Milo Watters on 12-17-2021 WBC (Bld) [#/Vol] 10.7 10*3/uL 4.5-11.0 [facility] Casts typing in urine sedime nt by light microscopyOrdered By: Milo Watters on 12-17-2021 Casts LM Nom (Urine sed) None seen [LPF] None Seen [facility] Color Auto (U)Ordered By: Jonh Watters on 12-17-2021 Color (U) Yellow Yellow [facility] Creatinine and Glomerular fi ltration rate.predicted panel (S/P/Bld)Ordered By: Milo Watters on 12-17-2021 Creatinine [Mass/Vol] 0.89 mg/dL 0.44-1.03 [facility] Eosinophils Auto (Bld) [#/Vo l]Ordered By: Milo Watters on 12-17-2021 Eosinophils (Bld) [#/Vol] 0.1 10*3/uL 0.0-0.45 [facility] Eosinophils/100 WBC Auto (Bl d)Ordered By: Milo Watters on 12-17-2021 Eosinophils/100 WBC (Bld) 1.0 % . [facility] Erythrocyte distribution wid th Auto (RBC) [Ratio]Ordered By: Milo Watters on 12-17-2021 Erythrocyte distribution width (RBC) [Ratio] 13.1 % 11.9-15.3 [facility] Estimated glomerular filtrat ion rate (GFR) non- AmericanOrdered By: Milo Watters on 12-17-2021 GFR/1.73 sq M.predicted among non-blacks MDRD (S/P/Bld) [Vol rate/Area] > 60 mL/Min [facility] Globulin Calc (S) [Mass/Vol] Ordered By: Milo Watters on 12-17-2021 Globulin (S) [Mass/Vol] 3.9 g/dL [facility] Hematocrit Auto (Bld) [Volum e fraction]Ordered By: Milo Watters on 12-17-2021 Hematocrit (Bld) [Volume fraction] 48.5 % 34.0-46.4 [facility] Ketones Auto test strip (U) [Mass/Vol]Ordered By: Milo Watters on 12-17-2021 Ketones (U) [Mass/Vol] Negative Negative Fi [facility] Laboratory - Hematology and Cell countsOrdered By: Milo Watters on 12-17-2021 Nucleated RBC/100 WBC (Bld) [Ratio] 0.1 % 0-0.5 [facility] Lymphocytes Auto (Bld) [#/Vo l]Ordered By: Milo Watters on 12-17-2021 Lymphocytes (Bld) [#/Vol] 1.5 10*3/uL 1.00-4.8 [facility] Lymphocytes/100 WBC Auto (Bl d)Ordered By: Milo Watters on 12-17-2021 Lymphocytes/100 WBC (Bld) 14.2 % . [facility] MCH Auto (RBC) [Entitic mass ]Ordered By: Milo Watters on 12-17-2021 MCH (RBC) [Entitic mass] 31.4 pg 24.7-34.3 [facility] MCHC Auto (RBC) [Mass/Vol]Or dered By: Milo Watters on 12-17-2021 MCHC (RBC) [Mass/Vol] 33.2 g/dL 32.0-35.0 [facility] MCV Auto (RBC) [Entitic vol] Ordered By: Milo Watters on 12-17-2021 MCV (RBC) [Entitic vol] 94.6 fL 80-100 [facility] Monocytes Auto (Bld) [#/Vol] Ordered By: Milo Watters on 12-17-2021 Monocytes (Bld) [#/Vol] 0.8 10*3/uL 0.0-0.8 [facility] Monocytes/100 WBC Auto (Bld) Ordered By: Milo Watters on 12-17-2021 Monocytes/100 WBC (Bld) 7.5 % . [facility] Neutrophils Auto (Bld) [#/Vo l]Ordered By: Milo Watters on 12-17-2021 Neutrophils (Bld) [#/Vol] 8.2 10*3/uL 1.8-7.7 [facility] Neutrophils/100 WBC Auto (Bl d)Ordered By: Milo Watters on 12-17-2021 Neutrophils/100 WBC (Bld) 76.8 % . [facility] Nitrite Test strip Ql (U)Ord ered By: Milo Watters on 12-17-2021 Nitrite Ql (U) Negative Negative [facility] No Panel InformationOrdered By: Milo Watters on 12-17-2021 Estimated GFR () > 60 mL/Min [facility] Comment on above: GFR estimated refere nce range: According to KDOQI guidelines, <60 ml/min/1.73m2 is sufficient to diagnose a patient with chronic kidney disease. Pharmacy Creatinine Clearance (Chem 70.55 [facility] Platelet mean volume Auto (B ld) [Entitic vol]Ordered By: Milo Watters on 12-17-2021 Platelet mean volume (Bld) [Entitic vol] 8.7 fL 6.3-10.7 [facility] Platelets Auto (Bld) [#/Vol] Ordered By: Milo Watters on 12-17-2021 Platelets (Bld) [#/Vol] 239 10*3/uL 150-450 [facility] Protein Auto test strip (U) [Mass/Vol]Ordered By: Milo Watters on 12-17-2021 Protein (U) [Mass/Vol] Trace mg/dL Negative [facility] Protein [Mass/volume] in Ser um or PlasmaOrdered By: Milo Watters on 12-17-2021 Protein [Mass/Vol] 7.3 g/dL 6.1-7.9 [facility] RBC Auto (Bld) [#/Vol]Ordere d By: Milo Watters on 12-17-2021 RBC (Bld) [#/Vol] 5.13 10*6/uL 3.60-5.00 [facility] Serum or plasma alanine tucker otransferase measurement without P-5'-P (enzymatic activiOrdered By: Milo Watters on 12-17-2021 ALT No additional P-5'-P [Catalytic activity/Vol] 38 U/L 10-60 [facility] Serum or plasma albumin/glob ulin mass ratioOrdered By: Milo Watters on 12-17-2021 Albumin/Globulin [Mass ratio] 0.9 {ratio} [facility] Serum or plasma alkaline yue sphatase measurement (enzymatic activity/volume)Ordered By: Milo Watters on 12-17-2021 ALP [Catalytic activity/Vol] 109 U/L 32-92 [facility] Serum or plasma aspartate am inotransferase measurement (enzymatic activity/volume)Ordered By: Milo Watters on 12-17-2021 AST [Catalytic activity/Vol] 43 U/L 10-42 [facility] Serum or plasma calcium steve urement (mass/volume)Ordered By: Milo Watters on 12-17-2021 Calcium [Mass/Vol] 10.0 mg/dL 8.2-10.2 [facility] Serum or plasma chloride coleman surement (moles/volume)Ordered By: Milo Watters on 12-17-2021 Chloride [Moles/Vol] 102 mmol/L 95-114 [facility] Serum or plasma glucose steve urement (mass/volume)Ordered By: Milo Watters on 12-17-2021 Glucose [Mass/Vol] 231 mg/dL 70-100 [facility] Comment on above: ADA recommended refe rence range Random Glucose Reference Range is dependent on time and content of last meal. Glucose of more than 200 mg/dL in a nonstressed, ambulatory subject supports the diagnosis of Diabetes Mellitus. Serum or plasma potassium me asurement (moles/volume)Ordered By: OSORIO WHITE on 12-17-2021 Potassium [Moles/Vol] 3.6 mmol/L 3.5-5.1 [facility] Serum or plasma sodium measu rement (moles/volume)Ordered By: Milo Watters on 12-17-2021 Sodium [Moles/Vol] 137 mmol/L 136-146 [facility] Serum or plasma total biliru bin measurement (mass/volume)Ordered By: Milo Watters on 12-17-2021 Bilirubin [Mass/Vol] 0.8 mg/dL 0.3-1.2 [facility] Serum or plasma total carbon dioxide measurement (moles/volume)Ordered By: Milo Watters on 12-17-2021 CO2 [Moles/Vol] 24.6 mmol/L 22.0-30.0 [facility] Serum or plasma urea nitroge n measurement (mass/volume)Ordered By: Milo Watters on 12-17-2021 Urea nitrogen [Mass/Vol] 8 mg/dL 9-23 [facility] Specific gravity Auto test s trip (U) [Rel density]Ordered By: Milo Watters on 12-17-2021 Specific gravity (U) [Rel density] 1.030 1.001-1.03 0 [facility] Squamous epithelial cells de tection in urine sediment by light microscopyOrdered By: Milo Watters on 12-17-2021 Epithelial cells.squamous LM Ql (Urine sed) None seen [HPF] 0-2 [facility] Urine bacteria detection by automated methodOrdered By: Milo Watters on 12-17-2021 Bacteria Auto Ql (U) Rare None Seen [facility] Urine clarity by refractomet ry automatedOrdered By: Milo Watters on 12-17-2021 Clarity Refractometry automated (U) Clear Clear [facility] Urine glucose measurement by automated test strip (mass/volume)Ordered By: Milo Watters on 12-17-2021 Glucose Auto test strip (U) [Mass/Vol] >=1000 mg/dL Normal [facility] Urine hemoglobin detection b y automated test stripOrdered By: Milo Watters on 12-17-2021 Hemoglobin Auto test strip Ql (U) 1+ Negative [facility] Urine leukocyte esterase det ection by automated test stripOrdered By: Milo Watters on 12-17-2021 Leukocyte esterase Auto test strip Ql (U) 3+ Negative [facility] Urobilinogen Auto test strip (U) [Mass/Vol]Ordered By: Milo Watters on 12-17-2021 Urobilinogen (U) [Mass/Vol] Normal mg/dL Normal [facility] Yeast detection in urine sed iment by light microscopyOrdered By: Milo Watters on 12-17-2021 Yeast LM Ql (Urine sed) 3+ [HPF] None Seen [facility] pH Auto test strip (U)Ordere d By: Milo Watters on 12-17-2021 pH (U) 6.0 [pH] 5.0-9.0 [facility] Bacterial blood cultureOrder ed By: Arleen Stephen on 12-14-2021 Bacteria identified Cx Nom (Bld) NO GROWTH 5 DAYS [facility] Basophils Auto (Bld) [#/Vol] Ordered By: Walter Montgomery on 12-13-2021 Basophils (Bld) [#/Vol] 0.0 10*3/uL 0.0-0.2 [facility] Basophils/100 WBC Auto (Bld) Ordered By: Walter Montgomery on 12-13-2021 Basophils/100 WBC (Bld) 0.1 % . [facility] Blood hemoglobin measurement (mass/volume)Ordered By: Walter Montgomery on 12-13-2021 Hemoglobin (Bld) [Mass/Vol] 14.2 g/dL 11.8-15.4 [facility] Blood leukocytes automated c ount (number/volume)Ordered By: Walter Montgomery on 12-13-2021 WBC (Bld) [#/Vol] 9.4 10*3/uL 4.5-11.0 [facility] Consultation Noteon 12-14-19 Consultation Note [id number]: 127 Normal [facility] Creatinine and Glomerular fi ltration rate.predicted panel (S/P/Bld)Ordered By: Walter Montgomery on 12-13-2021 Creatinine [Mass/Vol] 0.75 mg/dL 0.44-1.03 [facility] Direct bilirubin measurement Ordered By: Walter Montgomery on 12-13-2021 Bilirubin.direct [Mass/Vol] 0.2 mg/dL 0.0-0.4 [facility] Eosinophils Auto (Bld) [#/Vo l]Ordered By: Walter Montgomery on 12-13-2021 Eosinophils (Bld) [#/Vol] 0.0 10*3/uL 0.0-0.45 [facility] Eosinophils/100 WBC Auto (Bl d)Ordered By: Walter Montgomery on 12-13-2021 Eosinophils/100 WBC (Bld) 0.0 % . [facility] Erythrocyte distribution wid th Auto (RBC) [Ratio]Ordered By: Walter Montgomery on 12-13-2021 Erythrocyte distribution width (RBC) [Ratio] 12.9 % 11.9-15.3 [facility] Estimated glomerular filtrat ion rate (GFR) non- AmericanOrdered By: Walter Montgomery on 12-13-2021 GFR/1.73 sq M.predicted among non-blacks MDRD (S/P/Bld) [Vol rate/Area] > 60 mL/Min [facility] Glucose Glucometer (BldC) [M ass/Vol]Ordered By: Wilmer Vance on 12-13-2021 Glucose [Mass/Vol] 230 mg/dL [facility] Comment on above: Random Glucose Refer ence Range is dependent on time and content of last meal. Glucose of more than 200 mg/dL in a nonstressed, ambulatory subject supports the diagnosis of Diabetes Mellitus. Hematocrit Auto (Bld) [Volum e fraction]Ordered By: Walter Montgomery on 12-13-2021 Hematocrit (Bld) [Volume fraction] 41.9 % 34.0-46.4 [facility] Laboratory - Hematology and Cell countsOrdered By: Walter Montgomery on 12-13-2021 Nucleated RBC/100 WBC (Bld) [Ratio] 0.0 % 0-0.5 [facility] Lymphocytes Auto (Bld) [#/Vo l]Ordered By: Walter Montgomery on 12-13-2021 Lymphocytes (Bld) [#/Vol] 0.7 10*3/uL 1.00-4.8 [facility] Lymphocytes/100 WBC Auto (Bl d)Ordered By: Walter Montgomery on 12-13-2021 Lymphocytes/100 WBC (Bld) 7.7 % . [facility] MCH Auto (RBC) [Entitic mass ]Ordered By: Walter Montgomery on 12-13-2021 MCH (RBC) [Entitic mass] 32.2 pg 24.7-34.3 [facility] MCHC Auto (RBC) [Mass/Vol]Or dered By: Walter Montgomery on 12-13-2021 MCHC (RBC) [Mass/Vol] 33.9 g/dL 32.0-35.0 [facility] MCV Auto (RBC) [Entitic vol] Ordered By: Walter Montgomery on 12-13-2021 MCV (RBC) [Entitic vol] 95.1 fL 80-100 [facility] Monocytes Auto (Bld) [#/Vol] Ordered By: Walter Montgomery on 12-13-2021 Monocytes (Bld) [#/Vol] 0.2 10*3/uL 0.0-0.8 [facility] Monocytes/100 WBC Auto (Bld) Ordered By: Walter Montgomery on 12-13-2021 Monocytes/100 WBC (Bld) 1.8 % . [facility] Neutrophils Auto (Bld) [#/Vo l]Ordered By: Walter Montgomery on 12-13-2021 Neutrophils (Bld) [#/Vol] 8.5 10*3/uL 1.8-7.7 [facility] Neutrophils/100 WBC Auto (Bl d)Ordered By: Walter Montgomery on 12-13-2021 Neutrophils/100 WBC (Bld) 90.4 % . [facility] No Panel InformationOrdered By: Walter Montgomery on 12-13-2021 Estimated GFR () > 60 mL/Min [facility] Comment on above: GFR estimated refere nce range: According to KDOQI guidelines, <60 ml/min/1.73m2 is sufficient to diagnose a patient with chronic kidney disease. Pharmacy Creatinine Clearance (Chem 84.79 [facility] Platelet mean volume Auto (B ld) [Entitic vol]Ordered By: Walter Montgomery on 12-13-2021 Platelet mean volume (Bld) [Entitic vol] 9.3 fL 6.3-10.7 [facility] Platelets Auto (Bld) [#/Vol] Ordered By: aWlter Montgomery on 12-13-2021 Platelets (Bld) [#/Vol] 178 10*3/uL 150-450 [facility] RBC Auto (Bld) [#/Vol]Ordere d By: Walter Montgomery on 12-13-2021 RBC (Bld) [#/Vol] 4.41 10*6/uL 3.60-5.00 [facility] Serum or plasma chloride coleman surement (moles/volume)Ordered By: Walter Montgomery on 12-13-2021 Chloride [Moles/Vol] 105 mmol/L 95-114 [facility] Serum or plasma non-glucuron idated bilirubin measurement (mass/volume)Ordered By: Walter Montgomery on 12-13-2021 Bilirubin.indirect [Mass/Vol] 0.5 mg/dL [facility] Serum or plasma potassium me asurement (moles/volume)Ordered By: Walter Montgomery on 12-13-2021 Potassium [Moles/Vol] 4.4 mmol/L 3.5-5.1 [facility] Serum or plasma sodium measu rement (moles/volume)Ordered By: Walter Montgomery on 12-13-2021 Sodium [Moles/Vol] 137 mmol/L 136-146 [facility] Serum or plasma total biliru bin measurement (mass/volume)Ordered By: Walter Montgomery on 12-13-2021 Bilirubin [Mass/Vol] 0.7 mg/dL 0.3-1.2 [facility] Serum or plasma total carbon dioxide measurement (moles/volume)Ordered By: Walter Montgomery on 12-13-2021 CO2 [Moles/Vol] 24.6 mmol/L 22.0-30.0 [facility] Serum or plasma urea nitroge n measurement (mass/volume)Ordered By: Walter Montgomery on 12-13-2021 Urea nitrogen [Mass/Vol] 12 mg/dL 9-23 [facility] Activated partial thrombopla stin time (aPTT) in platelet poor plasma by coagulation aOrdered By: Walter Montgomery on 12-12-2021 aPTT Coag (PPP) [Time] 30.0 s 25.1-36.5 [facility] Laboratory - CoagulationOrde red By: Walter Montgomery on 12-12-2021 PT Coag (PPP) [Time] 14.1 s 9.0-12.9 [facility] Platelet poor plasma interna tional normalized ratio (INR) by coagulation assay (relatOrdered By: Walter Montgomery on 12-12-2021 INR Coag (PPP) [Relative time] 1.3 {INR} [facility] Comment on above: INR Therapeutic Rang e [...] 12-12-2021 ALP [Catalytic activity/Vol] 92 U/L 32-92 [facility] Serum or plasma aspartate am inotransferase measurement (enzymatic activity/volume)Ordered By: Walter Montgomery on 12-12-2021 AST [Catalytic activity/Vol] 22 U/L 10-42 [facility] Albumin [Mass/volume] in Ser um or PlasmaOrdered By: Arleen Stephen on 12-11-2021 Albumin [Mass/Vol] 2.9 g/dL 3.2-5.5 [facility] Globulin Calc (S) [Mass/Vol] Ordered By: Arleen Stephen on 12-11-2021 Globulin (S) [Mass/Vol] 3.0 g/dL [facility] No Panel InformationOrdered By: Arleen Stephen on 12-11-2021 Bedside Glucose Comment Glu2: cleaned meter [facility] Protein [Mass/volume] in Ser um or PlasmaOrdered By: Arleen Stephen on 12-11-2021 Protein [Mass/Vol] 5.9 g/dL 6.1-7.9 [facility] Serum or plasma alanine tucker otransferase measurement without P-5'-P (enzymatic activiOrdered By: Arleen Stephen on 12-11-2021 ALT No additional P-5'-P [Catalytic activity/Vol] 16 U/L 10-60 [facility] Serum or plasma albumin/glob ulin mass ratioOrdered By: Arleen Stephen on 12-11-2021 Albumin/Globulin [Mass ratio] 1.0 {ratio} [facility] Serum or plasma calcium steve urement (mass/volume)Ordered By: Arleen Stephen on 12-11-2021 Calcium [Mass/Vol] 9.2 mg/dL 8.2-10.2 [facility] Serum or plasma glucose steve urement (mass/volume)Ordered By: Arleen Stephen on 12-11-2021 Glucose [Mass/Vol] 204 mg/dL 70-100 [facility] Comment on above: ADA recommended refe rence range Random Glucose Reference Range is dependent on time and content of last meal. Glucose of more than 200 mg/dL in a nonstressed, ambulatory subject supports the diagnosis of Diabetes Mellitus. Urine culture routineOrdered By: Trayumu Randle on 12-11-2021 Bacteria identified Cx Nom (U) Escherichia coli [facility] Automated erythrocytes count in urine sediment (number/area)Ordered By: Tray Randle on 12-09-2021 RBC Auto (Urine sed) [#/Area] 5-9 [HPF] 0-4 [facility] Automated leukocytes count i n urine sediment (number/area)Ordered By: Tray Randle on 12-09-2021 WBC Auto (Urine sed) [#/Area] 50-100 [HPF] 0-4 [facility] Automated urine hyaline cast s count (number/volume)Ordered By: Tray Randle on 12-09-2021 Hyaline casts Auto (U) [#/Vol] None seen [LPF] 0-1 [facility] Bilirubin Test strip Ql (U)O rdered By: Tray Randle on 12-09-2021 Bilirubin Ql (U) Negative Negative [facility] COVID-19 Positive/NegativeOr dered By: Tray Randle on 12-09-2021 SARS-CoV-2 (COVID-19) N gene TEJINDER+probe Ql (Resp) Negative Negative [facility] Comment on above: Testing for SARS-CoV -2 by RT-PCR This test was developed and its performance characteristics determined by [employer] ([employer] and validated at the [facility]. This test has not been FDA cleared [...] (COVID-19) Ag IA.rapid Ql (Resp) Negative Negative [facility] Comment on above: This is a duplicate Molly SARS Antigen (ANUP) result to be used for statistical tracking purpose only. Casts typing in urine sedime nt by light microscopyOrdered By: Tray Randle on 12-09-2021 Casts LM Nom (Urine sed) None seen [LPF] None Seen [facility] Color Auto (U)Ordered By: Carolina Randle on 12-09-2021 Color (U) Yellow Yellow [facility] Ketones Auto test strip (U) [Mass/Vol]Ordered By: Tray Randle on 12-09-2021 Ketones (U) [Mass/Vol] Negative Negative Fi [facility] Nitrite Test strip Ql (U)Ord ered By: Tray Randle on 12-09-2021 Nitrite Ql (U) Positive Negative [facility] No Panel InformationOrdered By: Tray Randle on 12-09-2021 SARS Antigen (LFIA) [facility] Protein Auto test strip (U) [Mass/Vol]Ordered By: Tray Randel on 12-09-2021 Protein (U) [Mass/Vol] Negative Negative [facility] Specific gravity Auto test s trip (U) [Rel density]Ordered By: Tray Randle on 12-09-2021 Specific gravity (U) [Rel density] 1.030 1.001-1.03 0 [facility] Squamous epithelial cells de tection in urine sediment by light microscopyOrdered By: Tray Randle on 12-09-2021 Epithelial cells.squamous LM Ql (Urine sed) 10-19 [HPF] 0-2 [facility] Troponin I.cardiac [Mass/vol ume] in Serum or Plasma by High sensitivity methodOrdered By: Arleen Stephen on 12-09-2021 Troponin I.cardiac High sensitivity method [Mass/Vol] 5 pg/mL 0-15 [facility] Urine bacteria detection by automated methodOrdered By: Tray Randle on 12-09-2021 Bacteria Auto Ql (U) 4+ None Seen [facility] Urine clarity by refractomet ry automatedOrdered By: Tray Randle on 12-09-2021 Clarity Refractometry automated (U) Cloudy Clear [facility] Urine glucose measurement by automated test strip (mass/volume)Ordered By: Tray Randle on 12-09-2021 Glucose Auto test strip (U) [Mass/Vol] >=1000 mg/dL Normal [facility] Urine hemoglobin detection b y automated test stripOrdered By: Tray Randle on 12-09-2021 Hemoglobin Auto test strip Ql (U) Trace Negative [facility] Urine lactic acid measuremen tOrdered By: Arleen Stephen on 12-09-2021 Lactate (U) [Moles/Vol] 1.7 mmol/L 0.5-2.2 [facility] Urine leukocyte esterase det ection by automated test stripOrdered By: Tray Randle on 12-09-2021 Leukocyte esterase Auto test strip Ql (U) 2+ Negative [facility] Urobilinogen Auto test strip (U) [Mass/Vol]Ordered By: Tray Randle on 12-09-2021 Urobilinogen (U) [Mass/Vol] Normal mg/dL Normal [facility] pH Auto test strip (U)Ordere d By: Tray Randle on 12-09-2021 pH (U) 5.5 [pH] 5.0-9.0 [facility] A1C HEMOGLOBINon 10-12-2021 HbA1c (Bld) [Mass fraction] 7.5 % [employer] Other HbA1c (Bld) [Mass fraction]o n 10-12-2021 A1C HEMOGLOBIN [employer] Other A1C HEMOGLOBINon 07-10-2021 HbA1c (Bld) [Mass fraction] 6 % [employer] Other Glucose - FINGER STICKon Glucose [Mass/Vol] 150 mg/dL [employer] Other HbA1c (Bld) [Mass fraction]o n 07-10-2021 A1C HEMOGLOBIN [employer] Other A1C HEMOGLOBINon 03-27-2021 HbA1c (Bld) [Mass fraction] 6.9 % [employer] Other Glucose - FINGER STICKon Glucose [Mass/Vol] 244 mg/dL [employer] Other HbA1c (Bld) [Mass fraction]o n 03-27-2021 A1C HEMOGLOBIN [employer] Other PROGRESSon 02-12-2019 PROGRESS HNO ID: [id number] Author: Clyde Salamanca) Armand Service: ? Author [...] RTC to see Nov 1 at [facility] [place], to ensure complete healing, and further discuss plan of care re pathology results. - call office prn for issues/concerns Clyde Hall APRN.CNP [facility] 02-11-2019 CNOV Office Visit (GYNML) -------- TAYE GAY ([id number]) 1955 F Date Time Provider Department 02/11/19 [...] RTC to see Nov 1 at [facility] [place], to ensure complete healing, and further discuss plan of care re pathology results. - call office prn for issues/concerns Clyde Hall APRN.[employer] Referring Provider: THEO JOAQUIN [[id number]] Allergies As of Date: 02/11/2019 Noted Allergy [...] Status:Closed by CLYDE HALL CNP on 02/12/19 [facility] 01-21-2019 CNOV Office Visit (GYNML) -------- TAYE GAY ([id number]) 1955 F Date Time Provider Department 01/21/19 10:45 AM THEO JOAQUIN GYNDOMINIK During your visit today, we recorded the following information about you: Temperature Pulse Blood pressure Weight 98.6 degrees 94/minute 111/52 91.4 kg Theo Joaquin MD 01/22/2019 2:06 PM Signed Gynecologic Oncology [facility] Re: Taye Gay CCF#:[id number] 01/21/2019 Dear Nereida Castro: Taye presents for [...] note were sent to: Nereida Castro MD ([facility]) [address] [place] [id number] CC: Jonas Yoder MD (PCP) Referring Provider: THEO JOAQUIN [[id number]] Allergies As of Date: 01/21/2019 Noted Allergy [...] Status:Closed by THEO JOAQUIN MD on 01/22/19 [facility] PROGRESSon 01-08-2019 PROGRESS HNO ID: [id number] Author: Theo Joaquin Service: ? Author Type: Physician Type: Progress Notes Filed: 01/22/2019 2:06 PM Note Text: Gynecologic Oncology [facility] Re: Taye Gay CCF#:[id number] 01/21/2019 Dear Nereida Castro: Taye presents for [...] were sent to: Nereida Castro MD (DrC) [facility] [address] [id number] CC: Jonas Yoder MD (PCP) [facility] 01-07-2019 CNOV Office Visit (GYNML) -------- PRITITAYE Vegas ([id number]) 1955 F Date Time Provider Department 01/07/19 8:30 AM THEO JOAQUIN GYNML During your visit today, we recorded the following information about you: Temperature Pulse Blood pressure Weight 98.4 degrees 124/minute 103/53 90.2 kg Theo Joaquin MD 01/10/2019 11:17 PM Signed Gynecologic Oncology [facility] Re: Taye Gay CCF#:[id number] 01/07/2019 Dear Nereida Castro: Taye presents for [...] note were sent to: Nereida Castro MD (C) [address] [place] [id number] CC: Jonas Yoder MD (PCP) Referring Provider: THEO JOAQUIN [[id number]] Allergies As of Date: 01/07/2019 Noted Allergy [...] Status:Closed by THEO JOAQUIN MD on 01/10/19 [facility] 01-06-2019 CNPN Telephone (GYNML) -------- TAYE GAY ([id number]) 1955 F Date Time Provider Department 01/06/19 [...] Appointment made with Dr. Joaquin 01/07 @ 46 for wound check Patient verbalized understanding and [...] Encounter Status:Closed by SHANTEL REYNOSO on 01/06/19 [facility] PROGRESSon 01-06-2019 PROGRESS HNO ID: [id number] Author: Theo Joaquin Service: ? Author Type: Physician Type: Progress Notes Filed: 01/10/2019 11:17 PM Note Text: Gynecologic Oncology [facility] Re: Taye Gay CCF#:[id number] 01/07/2019 Dear Nereida Castro: Taye presents for [...] were sent to: Nereida Castro MD (DrC) [facility] [address] [address] CC: Jonas Yoder MD (PCP) [facility] ANES Yousuf 01-01-2019 ANES POST HNO ID: [id number] Author: Katharina Durham Service: Anesthesiology Author Type: [...] 01, 2019 TIME: 9:45 AM PAGER/CONTACT #: [facility] ANES PREOPon 01-01-2019 ANES PREOP HNO ID: [id number] Author: Katharina Durham Service: Anesthesiology Author Type: [...] days Inpatient medications reviewed in [facility]. I have interviewed and examined the patient. [...] 01, 2019 TIME: 7:35 AM PAGER/CONTACT #: [facility] HISTORY PHYSICALon 9 HISTORY PHYSICAL HNO ID: [id number] Author: Petty Shahid (Fel) Service: Gynecology Oncology [...] January 01, 2019 TIME: 7:16 AM PAGER: [facility] OPERATIVE NOon 01-01-2019 OPERATIVE NO HNO ID: [id number] Author: Theo Joaquin Service: Gynecology Oncology Author Type: Physician Type: Operative Report Filed: 01/17/2019 7:16 PM Note Text: OPERATIVE/PROCEDURE REPORT LOG ID: [id number] SURGERY/PROCEDURE DATE: 01/01/2019 INCISION/PROCEDURE START TIME: 8:11 AM INCISION CLOSE/PROCEDURE END TIME: 8:34 AM SURGEON(S)/PROCEDURALIST (S) AND DATA RECOVERY PLANNER(S): Surgeon(s) and Role: * Theo Joaquin - Primary * Petty Best (Coral Shahid - Fellow No Additional Staff OPERATIVE PROCEDURE: [...] 03, 2019 TIME: 2:24 PM PAGER/CONTACT #: [facility] PT EDon 01-01-2019 PT ED HNO ID: [id number] Author: Patty GalvinRn) BRENDA Bernal Service: Nursing [...] bath Electronically Signed By: Patty Bernal RN [facility] PT ED HNO ID: [id number] Author: Milly GalvinRn) BRENDA Murry Service: Nursing [...] None Electronically Signed By: Milly Murry RN [facility] PT ED HNO ID: [id number] Author: Jelly (Rn) BRENDA Simmons Service: Nursing [...] None Electronically Signed By: Jelly Simmons RN [facility] SURGICAL PATHOLOGYon 019 SURGICAL PATHOLOGY Specimen originated from [facility] Specimen #: [id number] Submitting Physician: THEO JOAQUIN MD __ FINAL DIAGNOSIS Vulva, excision - High-grade squamous intraepithelial lesion (SONNY-3), classic type, with positive mucosal margins; see comment. AJFranchesca/ana maria 01/05/2019 COMMENT Block A1 and A4 show [...] o'clock. EL/clay 01/01/2019 Gross examination performed at [facility], [facility] [place] [address] Date of Report: 01/05/2019 Date of Procedure: 01/01/2019 Date of Receipt: 01/01/2019 Submitted by: THEO JOAQUIN MD Location: [facility] Diagnostic interpretation performed at [facility], [facility] [place] [address]. CLIA Number: [id number] [facility] NURSING PROGon 12-24-2018 NURSING PROG HNO ID: [id number] Author: Nataliya (Rn) BRENDA Bell Service: Nursing [...] Bell RN December 24, 2018 3:07 PM [facility] Confirm Blood Typeon 019 ABO/RH(D) Positive [facility] Comment on above: Performed By: #### C ONABO #### [place] [phone] Type and SCR (30D)on 019 ABO/RH(D) Positive [facility] Comment on above: Performed By: #### T SCR30 #### [place] [phone] HOSPon 12-05-2018 HOSP Patient:Tyae Gay MRN: Height:5' 7 (1.702 m) Weight:200 [...] 51.2 % 12/17/2018 46.0 36.0 Progress Notes (COVER STITCH MACHINE OPERATOR [facility]): Aracelis Charles, RN, RN 12/22/2018 11:38 AM Signed Pre-op teaching Procedure: vulvar surgery Physician: Location: [facility]: [phone] Date AND Time: 01/01/19 MEDICAL CLEARANCE: No [...] Naprosyn(naproxen) Agrylin NSAIDS Pepto-Bismol Aleve Ecotrin Persantine Cathy-Burnet Excedrin Plaquenil Anacin Heparin Plavix Ascriptin Herbals [...] - IV pain medication after surgery, IV CHOKER SETTER if ordered by MD, discharged home with a prescription for PO pain medication, pain management after surgery, side effects of pain medication (including constipation, dizziness, drowsiness, and medication interactions). DVT PROPHYLAXIS - Early ambulation, SCDs, injectable anticoagulants (heparin, lovenox, etc) RESPIRATORY - Incentive spirometer, coughing/deep breathing exercises, ambulation. RETURN TO WORK - As directed by physician, please send any FMLA papers to physician's legal administrative secretary. SYMPTOMS TO NOTIFY MD - [...] if after hours patient instructed to call power plant operators supervisor and ask for the doctor information systems coordinator. Patient and family have phone number to call 24 hours/day. Patient Evaluation: Verbalizes understanding Patient and/or family express understanding of upcoming surgery and the operative process. Questions answered. Follow Up Plan: Follow up as needed Supplemental Material Given: Pre-operative teaching packet provided to the patient: INPATIENT/OUTPATIENT printed instructions; Post-operative instruction sheet, bowel prep instruction sheet For questions contact: office at [phone] Instructed By Aracelis Charles RN [facility] Serum or plasma calcidiol me asurement (mass/volume)on 07-10-2018 25-hydroxyvitamin D3 [Mass/Vol] 32.8 ng/mL 30-100 [facility] Comment on above: VITAMIN D STATUS 25( [place])VITAMIN D RANGE (ng/mL) Deficient <20 Insufficient 20 to <30Sufficient 30 to 100Reference: Sandra MEYER,Felisha SCANLON, Leon SHERWOOD, et al. Evaluation,treatment, and prevention of vitamin D deficiency; an Endocrine Society clinical practice guideline. JCEM. 2010; 96(7):1911-30. Vitamin B12 ser/plason 07-10 Cobalamin (Vitamin B12) [Mass/Vol] 446 pg/mL 180-914 [facility] BASIC METABOLIC PANELon 04-29 Anion gap 11 mmol/L Normal 0-19 [facility] Comment on above: Performed By: #### B MP ####[address] [place] [address] BUN/Creatinine Ratio 16.0 RATIO Normal 8-21 [facility] Comment on above: Performed By: #### B MP ####[address] [place] [address] Calcium 9.1 mg/dL Normal 8.5-10.4 [facility] Comment on above: Performed By: #### B MP ####[address],[place] [address] Chloride 98 mmol/L Normal 97-107 [facility] Comment on above: Performed By: #### B MP ####[address],[place] [address] CO2 25 mmol/L Normal 24-31 [facility] Comment on above: Performed By: #### B MP ####[address],[place] [address] Creatinine 0.5 mg/dL Normal 0.4-1.6 [facility] Comment on above: Performed By: #### B MP ####[address],[place] [address] eGFR (MDRD) Normal [facility] Comment on above: Result Comment: 134G FR ml/min/1.73m2 Stage -----90 160-89 230-59 315-29 4<15 5For -Americans, multiply EGFR result by 1.210Calculation not validated for patients under 18 years of age.Performed at [facility],[address],[place] [address] Performed By: #### B MP ####[address],[place] [address] Glucose mass conc 331 mg/dL High 65-99 [facility] Comment on above: Performed By: #### B MP ####[address],[place] [address] Potassium molar conc 4.6 mmol/L Normal 3.4-5.1 [facility] Comment on above: Performed By: #### B MP ####[address],[place] [address] Sodium 134 mmol/L Normal 133-145 [facility] Comment on above: Performed By: #### B MP ####[address],[place] [address] Urea nitrogen 8 mg/dL Normal 8-25 [facility] Comment on above: Performed By: #### B MP ####[address],[place] [address] EKGon 05-16-2017 EKG EKGVentric ular Rate : 60 BPMAtrial Rate : 60 BPMP-R Interval : 166 msQRS Duration : 80 msQ-T Interval : 432 msQTC Calculation(Bezet) : 432 msCalculated P [place] : 63 degreesCalculated R [place] : 29 degreesCalculated T [place] : 35 degreesDiagnosis:Normal sinus rhythmNormal ECGNo previous ECGs availableConfirmed by Walter Slaughter ([id number]) on 05/16/2017 3:45:18 PM Normal [facility] HEMOGLOBIN,HCTon 05-16-2017 Hematocrit (HCT) High 36-[address] [facility] Comment on above: Result Comment: 49.3 Performed at [facility],[address] [place] [address] Performed By: #### H H ####[address],[place] [address] Hemoglobin mass conc (Bld) 16.9 g/dL High 12.0-15.0 [facility] Comment on above: Performed By: #### H H ####[address] [place] [address] Operative Reporton 8 Operative Report Normal [facility] POCT GLUCOSEon 05-16-2017 Glucose mass conc 268 mg/dL High 65-99 [facility] Comment on above: Performed By: #### P CGL ####[place] [address] [place] [address] Glucose mass conc 292 mg/dL High 65-99 [facility] Comment on above: Performed By: #### P CGL ####[facility] [address] [place] [address] Glucose mass conc 358 mg/dL High 65-99 [facility] Comment on above: Performed By: #### P CGL ####[address] [address] [place] [address] Glucose mass conc 243 mg/dL High 65-99 [facility] Comment on above: Performed By: #### P CGL ####[address] [address] [place] [address] Vital Signs Date Time Vital Sign Value Performing Clinician Yue perez 01-19-2025 16:15-0400 Body height 170.2 cm Oz Kincaid MD Work Phone: [facility] 01-19-2025 16:15-0400 Body mass index (BMI) [Ratio] 30.54 kg/m2 Oz Kincaid MD Work Phone: [facility] 01-19-2025 16:15-0400 Body weight 88.45 kg Oz Kincaid MD Work Phone: [facility] 01-12-2025 14:23-0400 Body height 170.18 cm Shantel Norton APRN Work Phone: [facility] 01-12-2025 14:23-0400 Body mass index (BMI) [Ratio] 30.5 kg/m2 Shantel Norton APRN Work Phone: [facility] 01-12-2025 14:23-0400 Body temperature 97 [degF] Shantel Norton APRN Work Phone: [facility] 01-12-2025 14:23-0400 Body weight 88.45 kg Shantel Norton APRN Work Phone: [facility] 01-12-2025 14:23-0400 Diastolic blood pressure 80 mm[Hg] Shantel Norton APRN Work Phone: [facility] 01-12-2025 14:23-0400 Heart rate 88 /min Shantel Norton APRN Work Phone: [facility] 01-12-2025 14:23-0400 SaO2% (BldA) [Mass fraction] 96 % Shantel Norton APRN Work Phone: [facility] 01-12-2025 14:23-0400 Systolic blood pressure 126 mm[Hg] Shantel Norton APRN Work Phone: [facility] 01-05-2025 13:32-0400 Body height 170.18 cm Shantel Ramirezsuzette GODDARD Work Phone: [facility] 01-05-2025 13:32-0400 Body mass index (BMI) [Ratio] 30.5 kg/m2 Shantel Corralzara ELECTRICIAN MASTER Work Phone: [facility] 01-05-2025 13:32-0400 Body weight 88.5 kg Shantel Corralharithapushpasandra BRAYN Work Phone: [facility] 01-05-2025 13:32-0400 Diastolic blood pressure 70 mm[Hg] Shantel Corralzara ELECTRICIAN MASTER Work Phone: [facility] 01-05-2025 13:32-0400 Heart rate 79 /min Shantel Corralzara BRAYN Work Phone: [facility] 01-05-2025 13:32-0400 Respiratory rate 18 /min Shantel Corralzara BRAYN Work Phone: [facility] 01-05-2025 13:32-0400 SaO2% (BldA) [Mass fraction] 96 % Shantel Corralzara ELECTRICIAN MASTER Work Phone: [facility] 01-05-2025 13:32-0400 Systolic blood pressure 115 mm[Hg] Shantel Corralzara GODDARD Work Phone: [facility] 12-30-2024 13:47-0400 Body height 170.2 cm Roland Faust MD Work Phone: [facility] 12-30-2024 13:47-0400 Body mass index (BMI) [Ratio] 30.85 kg/m2 Roland Faust MD Work Phone: [facility] 12-30-2024 13:47-0400 Body weight 89.36 kg Roland Faust MD Work Phone: [facility] 12-30-2024 13:47-0400 Diastolic blood pressure 70 mm[Hg] Roland Faust MD Work Phone: [facility] 12-30-2024 13:47-0400 Heart rate 62 /min Roland Faust MD Work Phone: [facility] 12-30-2024 13:47-0400 Systolic blood pressure 100 mm[Hg] Roland Faust MD Work Phone: [facility] 12-15-2024 13:52-0400 Body height 170.18 cm Sandra Keita DO Work Phone: [facility] 12-15-2024 13:52-0400 Body mass index (BMI) [Ratio] 30.7 kg/m2 Sandra Keita DO Work Phone: [facility] 12-15-2024 13:52-0400 Body temperature 96.4 [degF] Sandra Keita DO Work Phone: [facility] 12-15-2024 13:52-0400 Body weight 88.9 kg Sandra Keita DO Work Phone: [facility] 12-15-2024 13:52-0400 Diastolic blood pressure 62 mm[Hg] Sandra Keita DO Work Phone: [facility] 12-15-2024 13:52-0400 Heart rate 79 /min Sandra Keita DO Work Phone: [facility] 12-15-2024 13:52-0400 SaO2% (BldA) [Mass fraction] 98 % Sandra Keita DO Work Phone: [facility] 12-15-2024 13:52-0400 Systolic blood pressure 98 mm[Hg] Sandra Keita DO Work Phone: [facility] 10-06-2024 13:57-0400 Body height 170.2 cm Oz Kincaid MD Work Phone: [facility] 10-06-2024 13:57-0400 Body mass index (BMI) [Ratio] 31.48 kg/m2 Oz Kincaid MD Work Phone: [facility] 10-06-2024 13:57-0400 Body weight 91.17 kg Oz Kincaid MD Work Phone: [facility] 10-01-2024 14:59-0400 Body height 170.18 cm Sandra Keita DO Work Phone: [facility] 10-01-2024 14:59-0400 Body mass index (BMI) [Ratio] 31.4 kg/m2 Sandra Keita DO Work Phone: [facility] 10-01-2024 14:59-0400 Body weight 91.17 kg Sandra Keita DO Work Phone: [facility] 10-01-2024 14:59-0400 Diastolic blood pressure 65 mm[Hg] Sandra Keita DO Work Phone: [facility] 10-01-2024 14:59-0400 Heart rate 65 /min Sandra Keita DO Work Phone: [facility] 10-01-2024 14:59-0400 SaO2% (BldA) [Mass fraction] 95 % Sandra Keita DO Work Phone: [facility] 10-01-2024 14:59-0400 Systolic blood pressure 86 mm[Hg] Sandra Keita DO Work Phone: [facility] 09-10-2024 13:30-0400 Diastolic blood pressure 76 mm[Hg] Sandra Keita DO Work Phone: [facility] 09-10-2024 13:30-0400 Heart rate 79 /min Sandra Keita DO Work Phone: [facility] 09-10-2024 13:30-0400 Respiratory rate 16 /min Sandra Keita DO Work Phone: [facility] 09-10-2024 13:30-0400 SaO2% (BldA) [Mass fraction] 95 % Sandra Keita DO Work Phone: [facility] 09-10-2024 13:30-0400 Systolic blood pressure 116 mm[Hg] Sandra Keita DO Work Phone: [facility] 09-10-2024 13:00-0400 Inhaled oxygen flow rate 2 L/min Sandra Keita DO Work Phone: [facility] 09-10-2024 11:07-0400 Body height 170.18 cm Sandra Keita DO Work Phone: [facility] 09-10-2024 11:07-0400 Body weight 90.71 kg Sandra Keita DO Work Phone: [facility] 09-07-2024 11:06-0400 Diastolic blood pressure 65 mm[Hg] Sandra Keita DO Work Phone: [facility] 09-07-2024 11:06-0400 Systolic blood pressure 112 mm[Hg] Sandra Keita DO Work Phone: [facility] 08-25-2024 13:37-0400 Body height 170.18 cm Sandra Keita DO Work Phone: [facility] 08-25-2024 13:37-0400 Body mass index (BMI) [Ratio] 31.8 kg/m2 Sandra Keita DO Work Phone: [facility] 08-25-2024 13:37-0400 Body weight 92.16 kg Sandra Keita DO Work Phone: [facility] 08-25-2024 13:37-0400 Diastolic blood pressure 66 mm[Hg] Sandra Ketia DO Work Phone: [facility] 08-25-2024 13:37-0400 Heart rate 71 /min Sandra Keita DO Work Phone: [facility] 08-25-2024 13:37-0400 Respiratory rate 18 /min Sandra Keita DO Work Phone: [facility] 08-25-2024 13:37-0400 SaO2% (BldA) [Mass fraction] 96 % Sandra Keita DO Work Phone: [facility] 08-25-2024 13:37-0400 Systolic blood pressure 104 mm[Hg] Sandra Keita DO Work Phone: [facility] 08-20-2024 10:03-0400 Body height 170.18 cm Sandra Keita DO Work Phone: [facility] 08-20-2024 10:03-0400 Body mass index (BMI) [Ratio] 32.2 kg/m2 Sandra Keita DO Work Phone: [facility] 08-20-2024 10:03-0400 Body weight 93.3 kg Sandra Keita DO Work Phone: [facility] 08-20-2024 10:03-0400 Diastolic blood pressure 68 mm[Hg] Sandra Keita DO Work Phone: [facility] 08-20-2024 10:03-0400 Heart rate 64 /min Sandra Keita DO Work Phone: [facility] 08-20-2024 10:03-0400 Respiratory rate 18 /min Sandra Keita DO Work Phone: [facility] 08-20-2024 10:03-0400 SaO2% (BldA) [Mass fraction] 94 % Sandra Keita DO Work Phone: [facility] 08-20-2024 10:03-0400 Systolic blood pressure 138 mm[Hg] Sandra Keita DO Work Phone: [facility] 07-22-2024 11:19-0400 Body height 170.18 cm Sandra Keita DO Work Phone: [facility] 07-22-2024 11:19-0400 Body mass index (BMI) [Ratio] 31.3 kg/m2 Sandra Keita DO Work Phone: [phone] [place] [address] 07-22-2024 11:19-0400 Body temperature 98.2 [degF] Sandra Keita DO Work Phone: 8(883)[phone] [place] [address] 07-22-2024 11:19-0400 Body weight 90.71 kg Sandra Keita DO Work Phone: [facility] 07-22-2024 11:19-0400 Diastolic blood pressure 68 mm[Hg] Sandra Keita DO Work Phone: [facility] 07-22-2024 11:19-0400 Heart rate 72 /min Sandra Keita DO Work Phone: [facility] 07-22-2024 11:19-0400 Respiratory rate 16 /min Sandra Keita DO Work Phone: [facility] 07-22-2024 11:19-0400 SaO2% (BldA) [Mass fraction] 98 % Sandra Keita DO Work Phone: [facility] 07-22-2024 11:19-0400 Systolic blood pressure 118 mm[Hg] Sandra Keita DO Work Phone: [facility] 07-21-2024 14:48-0400 Body height 170.2 cm Oz Kincaid MD Work Phone: [facility] 07-21-2024 14:48-0400 Body mass index (BMI) [Ratio] 31.32 kg/m2 Oz Kincaid MD Work Phone: [facility] 07-21-2024 14:48-0400 Body weight 90.72 kg Oz Kincaid MD Work Phone: [facility] 06-26-2024 09:46-0500 Body height 170.2 cm Roland Faust MD Work Phone: [facility] 06-26-2024 09:46-0500 Body mass index (BMI) [Ratio] 32.51 kg/m2 Roland Faust MD Work Phone: [facility] 06-26-2024 09:46-0500 Body weight 94.17 kg Roland Faust MD Work Phone: [facility] 06-26-2024 09:46-0500 Diastolic blood pressure 70 mm[Hg] Roland Faust MD Work Phone: [facility] 06-26-2024 09:46-0500 Heart rate 62 /min Roland Faust MD Work Phone: [facility] 06-26-2024 09:46-0500 Systolic blood pressure 116 mm[Hg] Roland Faust MD Work Phone: [facility] 05-07-2024 13:07-0500 Body height 170.18 cm Sandra Keita DO Work Phone: [facility] 05-07-2024 13:07-0500 Body mass index (BMI) [Ratio] 32.9 kg/m2 Sandra Keita DO Work Phone: [facility] 05-07-2024 13:07-0500 Body weight 95.3 kg Sandra Keita DO Work Phone: [facility] 05-07-2024 13:07-0500 Diastolic blood pressure 52 mm[Hg] Sandra Keita DO Work Phone: [facility] 05-07-2024 13:07-0500 Heart rate 64 /min Sandra Keita DO Work Phone: [facility] 05-07-2024 13:07-0500 Respiratory rate 18 /min Sandra Keita DO Work Phone: [facility] 05-07-2024 13:07-0500 SaO2% (BldA) [Mass fraction] 97 % Sandra Keita DO Work Phone: [facility] 05-07-2024 13:07-0500 Systolic blood pressure 82 mm[Hg] Sandra Keita DO Work Phone: [facility] 04-30-2024 08:25-0500 Body temperature 97.8 [degF] Sandra Keita DO Work Phone: [facility] 04-30-2024 08:25-0500 Diastolic blood pressure 83 mm[Hg] Sandra Keita DO Work Phone: [facility] 04-30-2024 08:25-0500 Heart rate 64 /min Sandra Keita DO Work Phone: [facility] 04-30-2024 08:25-0500 Respiratory rate 18 /min Sandra Keita DO Work Phone: [facility] 04-30-2024 08:25-0500 SaO2% (BldA) [Mass fraction] 96 % Sandra Keita DO Work Phone: [facility] 04-30-2024 08:25-0500 Systolic blood pressure 141 mm[Hg] Sandra Keita DO Work Phone: [facility] 04-30-2024 05:12-0500 Body weight 96.2 kg Sandra Keita DO Work Phone: [facility] 04-28-2024 23:40-0500 Body height 170.18 cm Sandra Keita DO Work Phone: [facility] 04-28-2024 23:19-0500 Diastolic blood pressure 68 mm[Hg] Sandra Keita DO Work Phone: [facility] 04-28-2024 23:19-0500 Heart rate 72 /min Sandra Keita DO Work Phone: [facility] 04-28-2024 23:19-0500 Respiratory rate 18 /min Sandra Keita DO Work Phone: [facility] 04-28-2024 23:19-0500 SaO2% (BldA) [Mass fraction] 98 % Sandra Keita DO Work Phone: [facility] 04-28-2024 23:19-0500 Systolic blood pressure 135 mm[Hg] Sandra Keita DO Work Phone: [facility] 04-28-2024 19:39-0500 Body height 170.18 cm Sandra Keita DO Work Phone: [facility] 04-28-2024 19:39-0500 Body temperature 98.1 [degF] Sandra Keita DO Work Phone: [facility] 04-28-2024 19:39-0500 Body weight 95.4 kg Sandra Keita DO Work Phone: [facility] 04-28-2024 11:35-0500 Body height 170.18 cm Sandra Keita DO Work Phone: [facility] 04-28-2024 11:35-0500 Body mass index (BMI) [Ratio] 32.5 kg/m2 Sandra Keita DO Work Phone: [facility] 04-28-2024 11:35-0500 Body weight 94.34 kg Sandra Keita DO Work Phone: [facility] 04-28-2024 11:35-0500 Diastolic blood pressure 58 mm[Hg] Sandra Keita DO Work Phone: [facility] 04-28-2024 11:35-0500 Heart rate 71 /min Sandra Keita DO Work Phone: [facility] 04-28-2024 11:35-0500 Respiratory rate 18 /min Sandra Keita DO Work Phone: [facility] 04-28-2024 11:35-0500 SaO2% (BldA) [Mass fraction] 94 % Sandra Keita DO Work Phone: [facility] 04-28-2024 11:35-0500 Systolic blood pressure 94 mm[Hg] Sandra Keita DO Work Phone: [facility] 04-28-2024 10:15-0500 Body height 170.18 cm Sandra Keita DO Work Phone: [facility] 04-28-2024 10:15-0500 Body mass index (BMI) [Ratio] 32.7 kg/m2 Sandra Keita DO Work Phone: [facility] 04-28-2024 10:15-0500 Body temperature 97.9 [degF] Sandra Keita DO Work Phone: [facility] [facility] 04-28-2024 10:15-0500 Body weight 94.8 kg Sandra Keita DO Work Phone: [facility] 04-28-2024 10:15-0500 Diastolic blood pressure 64 mm[Hg] Sandra Keita DO Work Phone: [facility] 04-28-2024 10:15-0500 Heart rate 70 /min Sandra Keita DO Work Phone: [facility] 04-28-2024 10:15-0500 Respiratory rate 16 /min Sandra Keita DO Work Phone: [facility] 04-28-2024 10:15-0500 SaO2% (BldA) [Mass fraction] 96 % Sandra Keita DO Work Phone: [facility] 04-28-2024 10:15-0500 Systolic blood pressure 88 mm[Hg] Sandra Keita DO Work Phone: [facility] 04-27-2024 14:29-0500 Body height 170.18 cm Sandra Keita DO Work Phone: [facility] 04-27-2024 14:29-0500 Body temperature 98 [degF] Sandra Keita DO Work Phone: [facility] 04-27-2024 14:29-0500 Body weight 90.71 kg Sandra Keita DO Work Phone: [facility] 04-27-2024 14:29-0500 Diastolic blood pressure 61 mm[Hg] Sandra Keita DO Work Phone: [facility] 04-27-2024 14:29-0500 Heart rate 80 /min Sandra Keita DO Work Phone: [facility] 04-27-2024 14:29-0500 Respiratory rate 18 /min Sandra Keita DO Work Phone: [facility] 04-27-2024 14:29-0500 SaO2% (BldA) [Mass fraction] 93 % Sandra Keita DO Work Phone: [facility] 04-27-2024 14:29-0500 Systolic blood pressure 116 mm[Hg] Sandra Keita DO Work Phone: [facility] 04-14-2024 09:35-0500 Body height 170.18 cm Sandra Keita DO Work Phone: [facility] 04-14-2024 09:35-0500 Body mass index (BMI) [Ratio] 32.1 kg/m2 Sandra Keita DO Work Phone: [facility] 04-14-2024 09:35-0500 Body temperature 98 [degF] Sandra Keita DO Work Phone: [facility] 04-14-2024 09:35-0500 Body weight 92.98 kg Sandra Keita DO Work Phone: [facility] 04-14-2024 09:35-0500 Diastolic blood pressure 80 mm[Hg] Sandra Keita DO Work Phone: [facility] 04-14-2024 09:35-0500 Heart rate 78 /min Sandra Keita DO Work Phone: [facility] 04-14-2024 09:35-0500 Respiratory rate 20 /min Sandra Keita DO Work Phone: [facility] 04-14-2024 09:35-0500 SaO2% (BldA) [Mass fraction] 98 % Sandra Keita DO Work Phone: [facility] 04-14-2024 09:35-0500 Systolic blood pressure 126 mm[Hg] Sandra Keita DO Work Phone: [facility] 04-07-2024 13:26-0500 Body height 170.2 cm Oz Kincaid MD Work Phone: [facility] 04-07-2024 13:26-0500 Body mass index (BMI) [Ratio] 31.32 kg/m2 Oz Kincaid MD Work Phone: [facility] 04-07-2024 13:26-0500 Body weight 90.72 kg Oz Kincaid MD Work Phone: [facility] 03-25-2024 13:42-0500 Body height 170.2 cm Roland Faust MD Work Phone: [facility] 03-25-2024 13:42-0500 Body mass index (BMI) [Ratio] 32.58 kg/m2 Roland Faust MD Work Phone: [facility] 03-25-2024 13:42-0500 Body weight 94.35 kg Roland Faust MD Work Phone: [facility] 03-25-2024 13:42-0500 Diastolic blood pressure 64 mm[Hg] Roland Faust MD Work Phone: [facility] 03-25-2024 13:42-0500 Heart rate 63 /min Roland Faust MD Work Phone: [facility] 03-25-2024 13:42-0500 Systolic blood pressure 100 mm[Hg] Roland Faust MD Work Phone: [facility] 02-25-2024 13:55-0400 Body height 170.2 cm Oz Kincaid MD Work Phone: [facility] 02-25-2024 13:55-0400 Body mass index (BMI) [Ratio] 31.32 kg/m2 Oz Kincaid MD Work Phone: [facility] 02-25-2024 13:55-0400 Body weight 90.72 kg Oz Kincaid MD Work Phone: [facility] 02-25-2024 13:55-0400 Diastolic blood pressure 84 mm[Hg] Oz Kincaid MD Work Phone: [facility] 02-25-2024 13:55-0400 Heart rate 74 /min Oz Kincaid MD Work Phone: [facility] 02-25-2024 13:55-0400 Systolic blood pressure 130 mm[Hg] Oz Kincaid MD Work Phone: [facility] 02-14-2024 13:23-0400 Body height 170.18 cm Sandra Keita DO Work Phone: [facility] 02-14-2024 13:23-0400 Body weight 90.71 kg Sandra Keita DO Work Phone: [facility] 02-03-2024 11:56-0400 Body height 170.18 cm DO Sandra Debbie Work Phone: [facility] 02-03-2024 11:56-0400 Body mass index (BMI) [Ratio] 31.6 kg/m2 DO Sandra Debbie Work Phone: [facility] 02-03-2024 11:56-0400 Body weight 91.62 kg DO Sandra Debbie Work Phone: [facility] 02-03-2024 11:56-0400 Diastolic blood pressure 68 mm[Hg] DO Sandra Debbie Work Phone: [facility] 02-03-2024 11:56-0400 Heart rate 63 /min DO Sandra Debbie Work Phone: [facility] 02-03-2024 11:56-0400 Respiratory rate 18 /min DO Sandra Debbie Work Phone: [facility] 02-03-2024 11:56-0400 SaO2% (BldA) [Mass fraction] 98 % DO Sandra Debbie Work Phone: [facility] 02-03-2024 11:56-0400 Systolic blood pressure 100 mm[Hg] DO Sandra Debbie Work Phone: [facility] 01-15-2024 15:38-0400 Body height 170.18 cm DO Sandra Debbie Work Phone: [facility] 01-15-2024 15:38-0400 Body mass index (BMI) [Ratio] 31.3 kg/m2 DO Sandra Debbie Work Phone: [facility] 01-15-2024 15:38-0400 Body weight 90.77 kg DO Sandra Debbie Work Phone: [facility] 01-07-2024 13:18-0400 Body height 170.2 cm Oz Kincaid MD Work Phone: [facility] 01-07-2024 13:18-0400 Body mass index (BMI) [Ratio] 31.32 kg/m2 Oz Kincaid MD Work Phone: [facility] 01-07-2024 13:18-0400 Body weight 90.72 kg Oz Kincaid MD Work Phone: [facility] 01-07-2024 13:18-0400 Diastolic blood pressure 74 mm[Hg] Oz Kincaid MD Work Phone: [facility] 01-07-2024 13:18-0400 Heart rate 62 /min Oz Kincaid MD Work Phone: [facility] 01-07-2024 13:18-0400 Systolic blood pressure 107 mm[Hg] Oz Kincaid MD Work Phone: [facility] 12-16-2023 10:40-0400 Body height 170.2 cm Roland Faust MD Work Phone: [facility] 12-16-2023 10:40-0400 Body mass index (BMI) [Ratio] 30.48 kg/m2 Roland Faust MD Work Phone: [facility] 12-16-2023 10:40-0400 Body weight 88.27 kg Roland Faust MD Work Phone: [facility] 12-16-2023 10:40-0400 Diastolic blood pressure 64 mm[Hg] Roland Faust MD Work Phone: [facility] 12-16-2023 10:40-0400 Heart rate 73 /min Roland Faust MD Work Phone: [facility] 12-16-2023 10:40-0400 Systolic blood pressure 102 mm[Hg] Roland Faust MD Work Phone: [facility] 11-18-2023 13:14-0400 Body height 170.18 cm DO Sandra Keita Work Phone: [facility] 11-18-2023 13:14-0400 Body mass index (BMI) [Ratio] 28.6 kg/m2 DO Sandra Keita Work Phone: [facility] 11-18-2023 13:14-0400 Body weight 83 kg DO Sandra Keita Work Phone: [facility] 11-18-2023 13:14-0400 Diastolic blood pressure 62 mm[Hg] DO Sandra Keita Work Phone: [facility] 11-18-2023 13:14-0400 Heart rate 54 /min DO Sandra Keita Work Phone: [facility] 11-18-2023 13:14-0400 Respiratory rate 18 /min DO Sandra Keita Work Phone: [facility] 11-18-2023 13:14-0400 SaO2% (BldA) [Mass fraction] 97 % DO Sandra Keita Work Phone: [facility] 11-18-2023 13:14-0400 Systolic blood pressure 96 mm[Hg] DO Sandra Keita Work Phone: [facility] 11-14-2023 15:07-0400 Body height 170.18 cm DO Sandra Keita Work Phone: [facility] 11-14-2023 15:07-0400 Body mass index (BMI) [Ratio] 28.5 kg/m2 DO Sandra Keita Work Phone: [facility] 11-14-2023 15:07-0400 Body weight 82.8 kg DO Sandra Keita Work Phone: [facility] 11-14-2023 15:07-0400 Diastolic blood pressure 72 mm[Hg] DO Sandra Keita Work Phone: [facility] 11-14-2023 15:07-0400 Heart rate 67 /min DO Sandra Keita Work Phone: [facility] 11-14-2023 15:07-0400 Respiratory rate 18 /min DO Sandra Keita Work Phone: [facility] 11-14-2023 15:07-0400 SaO2% (BldA) [Mass fraction] 97 % DO Sandra Keita Work Phone: [facility] 11-14-2023 15:07-0400 Systolic blood pressure 110 mm[Hg] DO Sandra Keita Work Phone: [facility] 11-13-2023 13:54-0400 Body height 170.2 cm Jonas Ch MD Work Phone: [facility] 11-13-2023 13:54-0400 Body mass index (BMI) [Ratio] 28.19 kg/m2 Jonas Ch MD Work Phone: [facility] 11-13-2023 13:54-0400 Body weight 81.65 kg Jonas Ch MD Work Phone: [facility] 11-13-2023 13:54-0400 Diastolic blood pressure 70 mm[Hg] Jonas Ch MD Work Phone: [facility] 11-13-2023 13:54-0400 Heart rate 87 /min Jonas Ch MD Work Phone: [facility] 11-13-2023 13:54-0400 Systolic blood pressure 108 mm[Hg] Jonas Ch MD Work Phone: [facility] 11-12-2023 16:12-0400 Diastolic blood pressure 83 mm[Hg] DO Sandra Keita Work Phone: [facility] 11-12-2023 16:12-0400 Heart rate 61 /min DO Sandra Keita Work Phone: [facility] 11-12-2023 16:12-0400 Respiratory rate 16 /min DO Sandra Keita Work Phone: [facility] 11-12-2023 16:12-0400 SaO2% (BldA) [Mass fraction] 96 % DO Sandra Keita Work Phone: [facility] 11-12-2023 16:12-0400 Systolic blood pressure 149 mm[Hg] DO Sandra Keita Work Phone: [facility] 11-12-2023 12:16-0400 Body temperature 97.5 [degF] DO Sandra Keita Work Phone: [facility] 11-12-2023 06:00-0400 Body weight 83.5 kg DO Sandra Keita Work Phone: [facility] 11-10-2023 08:23-0400 Body height 170.18 cm DO Sandra Keita Work Phone: [facility] 11-10-2023 05:05-0400 Diastolic blood pressure 67 mm[Hg] DO Sandra Keita Work Phone: [facility] 11-10-2023 05:05-0400 Heart rate 62 /min DO Sandra Keita Work Phone: [facility] 11-10-2023 05:05-0400 Respiratory rate 18 /min DO Sandra Keita Work Phone: [facility] 11-10-2023 05:05-0400 SaO2% (BldA) [Mass fraction] 100 % DO Sandra Keita Work Phone: [facility] 11-10-2023 05:05-0400 Systolic blood pressure 144 mm[Hg] DO Sandra Keita Work Phone: [facility] 11-10-2023 03:44-0400 Body temperature 98.1 [degF] DO Sandra Keita Work Phone: [facility] 11-09-2023 22:16-0400 Body height 170.18 cm DO Sandra Debbie Work Phone: [facility] 11-09-2023 22:16-0400 Body weight 81.64 kg DO Sandra Keita Work Phone: [facility] 11-05-2023 12:36-0400 SaO2% (BldA) [Mass fraction] 100 % DO Sandra Keita Work Phone: [facility] 10-07-2023 09:48-0400 Body height 170.2 cm Jonas Ch MD Work Phone: [facility] 10-07-2023 09:48-0400 Body mass index (BMI) [Ratio] 28.19 kg/m2 Jonas Ch MD Work Phone: [facility] 10-07-2023 09:48-0400 Body weight 81.65 kg Jonas Ch MD Work Phone: [facility] 10-07-2023 09:48-0400 Diastolic blood pressure 90 mm[Hg] Jonas Ch MD Work Phone: [facility] 10-07-2023 09:48-0400 Heart rate 92 /min Jonas Ch MD Work Phone: [facility] 10-07-2023 09:48-0400 Systolic blood pressure 114 mm[Hg] Jonas Ch MD Work Phone: [facility] 09-17-2023 13:02-0400 Body height 167.64 cm DO Sandra Keita Work Phone: [facility] 09-17-2023 13:02-0400 Body mass index (BMI) [Ratio] 29 kg/m2 DO Sandra Keita Work Phone: [facility] 09-17-2023 13:02-0400 Body weight 81.67 kg DO Sandra Keita Work Phone: [facility] 09-17-2023 13:02-0400 Diastolic blood pressure 64 mm[Hg] DO Sandra Keita Work Phone: [facility] 09-17-2023 13:02-0400 Heart rate 117 /min DO Sandra Keita Work Phone: [facility] 09-17-2023 13:02-0400 Respiratory rate 18 /min DO Sandra Keita Work Phone: [facility] 09-17-2023 13:02-0400 SaO2% (BldA) [Mass fraction] 99 % DO Sandra Keita Work Phone: [facility] 09-17-2023 13:02-0400 Systolic blood pressure 92 mm[Hg] DO Sandra Keita Work Phone: [facility] 09-14-2023 16:11-0400 Body temperature 97.7 [degF] DO Sandra Keita Work Phone: [facility] 09-14-2023 16:11-0400 Diastolic blood pressure 70 mm[Hg] DO Sandra Keita Work Phone: [facility] 09-14-2023 16:11-0400 Heart rate 74 /min DO Sandra Keita Work Phone: [facility] 09-14-2023 16:11-0400 Respiratory rate 17 /min DO Sandra Keita Work Phone: [facility] 09-14-2023 16:11-0400 SaO2% (BldA) [Mass fraction] 95 % DO Sandra Keita Work Phone: [facility] 09-14-2023 16:11-0400 Systolic blood pressure 115 mm[Hg] DO Sandra Keita Work Phone: [facility] 09-14-2023 06:00-0400 Body weight 83.2 kg DO Sandra Keita Work Phone: [facility] 09-13-2023 12:41-0400 Body height 170.18 cm DO Sandra Keita Work Phone: [facility] 09-12-2023 13:58-0400 Body height 167.64 cm DO Sandra Debbie Work Phone: [facility] 09-12-2023 13:58-0400 Body mass index (BMI) [Ratio] 29 kg/m2 DO Sandra Keita Work Phone: [facility] 09-12-2023 13:58-0400 Body weight 81.64 kg DO Sandra Keita Work Phone: [facility] 09-12-2023 13:58-0400 Diastolic blood pressure 81 mm[Hg] DO Sandra Debbie Work Phone: [facility] 09-12-2023 13:58-0400 Heart rate 135 /min DO Sandra Debbie Work Phone: [facility] 09-12-2023 13:58-0400 Respiratory rate 18 /min DO Sandra Debbie Work Phone: [facility] 09-12-2023 13:58-0400 SaO2% (BldA) [Mass fraction] 97 % DO Sandra Debbie Work Phone: [facility] 09-12-2023 13:58-0400 Systolic blood pressure 112 mm[Hg] DO Sandra Debbie Work Phone: [facility] 07-17-2023 11:43-0400 Body height 167.64 cm [facility] 07-17-2023 11:43-0400 Body mass index (BMI) [Ratio] 28.8 kg/m2 [facility] 07-17-2023 11:43-0400 Body temperature 97.8 [degF] [facility] 07-17-2023 11:43-0400 Body weight 81.19 kg [facility] 07-17-2023 11:43-0400 Diastolic blood pressure 64 mm[Hg] [facility] 07-17-2023 11:43-0400 Heart rate 78 /min [facility] 07-17-2023 11:43-0400 Respiratory rate 16 /min [facility] 07-17-2023 11:43-0400 SaO2% (BldA) [Mass fraction] 98 % [facility] 07-17-2023 11:43-0400 Systolic blood pressure 112 mm[Hg] [facility] 06-19-2023 15:53-0500 Body height 167.64 cm [facility] 06-19-2023 15:53-0500 Body mass index (BMI) [Ratio] 28.9 kg/m2 [facility] 06-19-2023 15:53-0500 Body weight 81.33 kg [facility] 06-19-2023 15:53-0500 Diastolic blood pressure 68 mm[Hg] [facility] 06-19-2023 15:53-0500 Heart rate 95 /min [facility] 06-19-2023 15:53-0500 Respiratory rate 18 /min [facility] 06-19-2023 15:53-0500 SaO2% (BldA) [Mass fraction] 97 % [facility] 06-19-2023 15:53-0500 Systolic blood pressure 92 mm[Hg] [facility] 06-12-2023 15:38-0500 Body height 167.64 cm [facility] 06-12-2023 15:38-0500 Body mass index (BMI) [Ratio] 28.5 kg/m2 [facility] 06-12-2023 15:38-0500 Body weight 80.28 kg [facility] 06-12-2023 15:38-0500 Diastolic blood pressure 72 mm[Hg] [facility] 06-12-2023 15:38-0500 Heart rate 95 /min [facility] 06-12-2023 15:38-0500 Respiratory rate 18 /min [facility] 06-12-2023 15:38-0500 SaO2% (BldA) [Mass fraction] 99 % [facility] 06-12-2023 15:38-0500 Systolic blood pressure 111 mm[Hg] [facility] 03-04-2023 15:00-0500 Body height 167.64 cm Sandra Keita Other [facility] Other 03-04-2023 15:00-0500 Body mass index (BMI) [Ratio] 29.97 kg/m2 Sandra Keita Other [facility] Other 03-04-2023 15:00-0500 Body weight 84.23 kg Sandra Keita Other [facility] Other 03-04-2023 15:00-0500 Diastolic blood pressure 68 mm[Hg] Sandra Keita Other [facility] Other 03-04-2023 15:00-0500 Respiratory rate 18 /min Sandra Keita Other [facility] Other 03-04-2023 15:00-0500 SaO2% (BldA) [Mass fraction] 96 % Sandra Keita Other [facility] Other 03-04-2023 15:00-0500 Systolic blood pressure 98 mm[Hg] Sandra Keita Other [facility] Other 01-07-2023 14:00-0400 Body height 167.64 cm Tondra Mapus Other [facility] Other 01-07-2023 14:00-0400 Body mass index (BMI) [Ratio] 30.03 kg/m2 Tondra Mapus Other [facility] Other 01-07-2023 14:00-0400 Body weight 84.41 kg Tondra Mapus Other [facility] Other 01-07-2023 14:00-0400 Diastolic blood pressure 68 mm[Hg] Tondra Mapus Other [facility] Other 01-07-2023 14:00-0400 Respiratory rate 18 /min Tondra Mapus Other [facility] Other 01-07-2023 14:00-0400 SaO2% (BldA) [Mass fraction] 98 % Tondra Mapus Other [facility] Other 01-07-2023 14:00-0400 Systolic blood pressure 102 mm[Hg] Tondra Mapus Other [facility] Other 01-02-2023 11:00-0400 Body height 167.64 cm Brayden Noble Other [facility] Other 01-02-2023 11:00-0400 Body mass index (BMI) [Ratio] 29.7 kg/m2 Brayden Noble Other [facility] Other 01-02-2023 11:00-0400 Body weight 83.46 kg Brayden Noble Other [facility] Other 01-02-2023 11:00-0400 Diastolic blood pressure 78 mm[Hg] Brayden Noble Other [facility] Other 01-02-2023 11:00-0400 Systolic blood pressure 120 mm[Hg] Brayden Noble Other [facility] Other 11-28-2022 15:00-0400 Body height 167.64 cm Sadnra Keita Other [facility] Other 11-28-2022 15:00-0400 Body mass index (BMI) [Ratio] 29.58 kg/m2 Sandra Keita Other [facility] Other 11-28-2022 15:00-0400 Body weight 83.14 kg Sandra Keita Other [facility] Other 11-28-2022 15:00-0400 Diastolic blood pressure 72 mm[Hg] Sandra Keita Other [facility] Other 11-28-2022 15:00-0400 Respiratory rate 20 /min Sandrarebecca Keita Other [facility] Other 11-28-2022 15:00-0400 SaO2% (BldA) [Mass fraction] 99 % Sandra Keita Other [facility] Other 11-28-2022 15:00-0400 Systolic blood pressure 115 mm[Hg] Sandra Keita Other [facility] Other 09-27-2022 14:15-0400 Body height 167.64 cm Tondra Mapus Other [facility] Other 09-27-2022 14:15-0400 Body mass index (BMI) [Ratio] 29.53 kg/m2 Tondra Mapus Other [facility] Other 09-27-2022 14:15-0400 Body weight 83.01 kg Tondra Mapus Other [facility] Other 09-27-2022 14:15-0400 Diastolic blood pressure 66 mm[Hg] Tondra Mapus Other [facility] Other 09-27-2022 14:15-0400 Respiratory rate 18 /min Tondra Mapus Other [facility] Other 09-27-2022 14:15-0400 SaO2% (BldA) [Mass fraction] 97 % Tondra Mapus Other [facility] Other 09-27-2022 14:15-0400 Systolic blood pressure 100 mm[Hg] Tondra Mapus Other [facility] Other 08-09-2022 16:15-0400 Body height 167.64 cm Sandra Keita Other [facility] Other 08-09-2022 16:15-0400 Body mass index (BMI) [Ratio] 29.86 kg/m2 Sandra Keita Other [facility] Other 08-09-2022 16:15-0400 Body weight 83.92 kg Sandra Debbie Other [facility] Other 08-09-2022 16:15-0400 Diastolic blood pressure 74 mm[Hg] Sandra Debbie Other [facility] Other 08-09-2022 16:15-0400 Respiratory rate 18 /min Sandra Keita Other [facility] Other 08-09-2022 16:15-0400 SaO2% (BldA) [Mass fraction] 97 % Sandra Keita Other [facility] Other 08-09-2022 16:15-0400 Systolic blood pressure 118 mm[Hg] Sandra Keita Other [facility] Other 06-18-2022 15:30-0500 Body height 167.64 cm Tondra Mapus Other [facility] Other 06-18-2022 15:30-0500 Body mass index (BMI) [Ratio] 35.34 kg/m2 Tondra Mapus Other [facility] Other 06-18-2022 15:30-0500 Body weight 99.34 kg Tondra Mapus Other [facility] Other 06-18-2022 15:30-0500 Diastolic blood pressure 72 mm[Hg] Tondra Mapus Other [facility] Other 06-18-2022 15:30-0500 Respiratory rate 18 /min Tondra Mapus Other [facility] Other 06-18-2022 15:30-0500 SaO2% (BldA) [Mass fraction] 97 % Tondra Mapus Other [facility] Other 06-18-2022 15:30-0500 Systolic blood pressure 108 mm[Hg] Tondra Mapus Other [facility] Other 01-09-2022 14:00-0400 Body height 167.64 cm Tondra Mapus Other [facility] Other 01-09-2022 14:00-0400 Body mass index (BMI) [Ratio] 28.73 kg/m2 Tondra Mapus Other [facility] Other 01-09-2022 14:00-0400 Body weight 80.74 kg Tondra Mapus Other [facility] Other 01-09-2022 14:00-0400 Diastolic blood pressure 79 mm[Hg] Tondra Mapus Other [facility] Other 01-09-2022 14:00-0400 Respiratory rate 16 /min Tondra Mapus Other [facility] Other 01-09-2022 14:00-0400 SaO2% (BldA) [Mass fraction] 97 % Tondra Mapus Other [facility] Other 01-09-2022 14:00-0400 Systolic blood pressure 127 mm[Hg] Tondra Mapus Other [facility] Other 12-17-2021 08:23-0400 Diastolic blood pressure 63 mm[Hg] DO Tray Jer [facility] 12-17-2021 08:23-0400 Heart rate 82 /min DO Tray Randle [facility] 12-17-2021 08:23-0400 Respiratory rate 18 /min DO Tray Randle [facility] 12-17-2021 08:23-0400 SaO2% (BldA) [Mass fraction] 98 % [facility] 08:23-0400 Systolic blood pressure 135 mm[Hg] DO Tray Randle [facility] 12-17-2021 05:29-0400 Body height 170.18 cm DO Tray Randle [facility] 12-17-2021 05:29-0400 Body temperature 97.4 [degF] DO Tray Randle [facility] 12-17-2021 05:29-0400 Body weight 82.55 kg DO Tray Randle [facility] 12-14-2021 06:58-0400 Body height 170.18 cm DO Tray Randle [facility] 12-14-2021 06:58-0400 Body mass index (BMI) [Ratio] 29.2 kg/m2 DO Trayumu Randle [facility] 12-14-2021 06:58-0400 Body weight 84.8 kg DO Trayumu Randle [facility] 12-13-2021 11:06-0400 Body temperature 97.7 [degF] DO Trayumu Randle [facility] 12-13-2021 11:06-0400 Diastolic blood pressure 67 mm[Hg] DO [facility] 12-13-2021 11:06-0400 Heart rate 88 /min DO Trayumu Randle [facility] 12-13-2021 11:06-0400 Respiratory rate 16 /min DO Trayumu Randle [facility] 12-13-2021 11:06-0400 SaO2% (BldA) [Mass fraction] 93 % [facility] 12-13-2021 11:06-0400 Systolic blood pressure 119 mm[Hg] DO [facility] 12-13-2021 08:00-0400 Inhaled oxygen flow rate 3 L/min DO [facility] 10-12-2021 11:00-0400 Body height 167.64 cm Crispin Looney Other [facility] Other 10-12-2021 11:00-0400 Body mass index (BMI) [Ratio] 29.81 kg/m2 Crispin Looney Other [facility] Other 10-12-2021 11:00-0400 Body weight 83.78 kg Crispin Looney Other [facility] Other 10-12-2021 11:00-0400 Diastolic blood pressure 68 mm[Hg] Crispin Looney Other [facility] Other 10-12-2021 11:00-0400 Respiratory rate 18 /min Crispin Looney Other [facility] Other 10-12-2021 11:00-0400 SaO2% (BldA) [Mass fraction] 97 % Crispin Looney Other [facility] Other 10-12-2021 11:00-0400 Systolic blood pressure 97 mm[Hg] Crispin Looney Other [facility] Other 07-10-2021 14:30-0400 Body height 167.64 cm Angelique Pattersonus Other [facility] Other 07-10-2021 14:30-0400 Body mass index (BMI) [Ratio] 30.34 kg/m2 Tona Mapus Other [facility] Other 07-10-2021 14:30-0400 Body weight 85.28 kg Tondra Mapus Other [employer] Other 07-10-2021 14:30-0400 Diastolic blood pressure 60 mm[Hg] Tondra Mapus Other [employer] Other 07-10-2021 14:30-0400 Respiratory rate 16 /min Tondra Pattersonus Other [employer] Other 07-10-2021 14:30-0400 SaO2% (BldA) [Mass fraction] 97 % Tona Mapus Other [employer] Other 07-10-2021 14:30-0400 Systolic blood pressure 89 mm[Hg] Tondra Mapus Other [employer] Other 07-03-2021 16:00-0500 Body height 167.64 cm Ruben Avendañoracquel Other [employer] Other 07-03-2021 16:00-0500 Body mass index (BMI) [Ratio] 30.5 kg/m2 Ruben Avendañoracquel Other [employer] Other 07-03-2021 16:00-0500 Body temperature 95.5 [degF] Ruben Avendañoracquel Other [employer] Other 07-03-2021 16:00-0500 Body weight 85.73 kg Ruben Avendañoracquel Other [employer] Other 07-03-2021 16:00-0500 Diastolic blood pressure 68 mm[Hg] Ruben Katerynaban Other [employer] Other 07-03-2021 16:00-0500 SaO2% (BldA) [Mass fraction] 99 % Ruben Avendañoban Other [employer] Other 07-03-2021 16:00-0500 Systolic blood pressure 94 mm[Hg] Gaudencioal Chaban Other [employer] Other 05-08-2021 14:15-0500 Body height 167.64 cm Crispin Looney Other [employer] Other 05-08-2021 14:15-0500 Body mass index (BMI) [Ratio] 30.87 kg/m2 Crispin Looney Other [employer] Other 05-08-2021 14:15-0500 Body weight 86.77 kg Crispin Looney Other [employer] Other 05-08-2021 14:15-0500 Diastolic blood pressure 58 mm[Hg] Crispin Looney Other [employer] Other 05-08-2021 14:15-0500 Respiratory rate 20 /min Crispin Looney Other [employer] Other 05-08-2021 14:15-0500 SaO2% (BldA) [Mass fraction] 98 % Crispin Looney Other [employer] Other 05-08-2021 14:15-0500 Systolic blood pressure 102 mm[Hg] Crispin Looney Other [employer] Other 04-03-2021 15:00-0500 Body height 167.64 cm Tray Nava Other [employer] Other 04-03-2021 15:00-0500 Body mass index (BMI) [Ratio] 30.99 kg/m2 Tray Nava Other [employer] Other 04-03-2021 15:00-0500 Body temperature 98.3 [degF] Tray Nava Other [employer] Other 04-03-2021 15:00-0500 Body weight 87.09 kg Tray Ceballospratibha Other [employer] Other 04-03-2021 15:00-0500 Diastolic blood pressure 68 mm[Hg] Tray Ceballospratibha Other [employer] Other 04-03-2021 15:00-0500 SaO2% (BldA) [Mass fraction] 93 % Tray Ceballospratibha Other [employer] Other 04-03-2021 15:00-0500 Systolic blood pressure 110 mm[Hg] Tray Ceballospratibha Other [employer] Other 03-27-2021 15:00-0500 Body height 167.64 cm Tondra Mapus Other [employer] Other 03-27-2021 15:00-0500 Body mass index (BMI) [Ratio] 30.99 kg/m2 Tondra Mapus Other [employer] Other 03-27-2021 15:00-0500 Body weight 87.09 kg Tondra Mapus Other [employer] Other 03-27-2021 15:00-0500 Diastolic blood pressure 75 mm[Hg] Tondra Mapus Other [employer] Other 03-27-2021 15:00-0500 Respiratory rate 20 /min Tondra Mapus Other [employer] Other 03-27-2021 15:00-0500 SaO2% (BldA) [Mass fraction] 97 % Angelique Russell Other [employer] Other 03-27-2021 15:00-0500 Systolic blood pressure 124 mm[Hg] Angelique Russell Other [employer] Other 02-27-2021 16:00-0400 Body height 167.64 cm Tray Brandy Other [employer] Other 02-27-2021 16:00-0400 Body mass index (BMI) [Ratio] 30.66 kg/m2 Tray Nava Other [employer] Other 02-27-2021 16:00-0400 Body weight 86.18 kg Tray Brandy Other [employer] Other 02-27-2021 16:00-0400 Diastolic blood pressure 76 mm[Hg] Tray Nava Other [employer] Other 02-27-2021 16:00-0400 Systolic blood pressure 123 mm[Hg] Tray Nava Other [employer] Other 08-27-2017 12:01-0400 Body height 170.18 cm DO Jonas Yoder Work Phone: [facility] Encounters Encounter Date Encounter Type Care Provider Facility Start: 01-19-2025 End: 01-19-2025 ambulatory OZ KINCAID Not Available Start: 01-19-2025 End: 01-19-2025 Office outpatient visit 15 minutes Oz Kincaid MD Work Phone: [facility] Comment on above: Weakness of both low er extremities (Primary Dx); Carpal tunnel syndrome, bilateral; Cognitive decline; Cervical paraspinal muscle spasm; B12 deficiency; Guyon syndrome, unspecified laterality Start: 01-19-2025 End: 01-19-2025 Bamboo flowsheet Oz Kincaid MD Work Phone: [facility] Start: 01-19-2025 End: 01-19-2025 Bamboo flowsheet Oz Kincaid MD Work Phone: [facility] Start: 01-12-2025 End: 01-12-2025 ambulatory Shantel Norton APRN Work Phone: [facility] Work Phone: Start: 01-12-2025 End: 01-12-2025 Patient encounter procedure Shantel Norton APRN [facility] Work Phone: Start: 01-05-2025 End: 01-05-2025 ambulatory Shantel Norton APRN Work Phone: [facility] Work Phone: Start: 01-05-2025 End: 01-05-2025 Patient encounter procedure Juliorebecca Best Yvonne STAFF RADIOLOGIST-C -[facility] Work Phone: Start: 12-31-2024 End: 12-31-2024 ambulatory OZ KINCAID Not Available Start: 12-31-2024 Non-patient / Non-visit Samm disla MD -[facility] Sleep Lab Work Phone: Start: 12-30-2024 End: 12-30-2024 Office outpatient visit 15 minutes Roland Faust MD Work Phone: [facility] Comment on above: Typical atrial flutt er (Multi) (Primary Dx); Nonischemic cardiomyopathy (Multi); Hypertension, unspecified type; Hypercholesteremia; Obesity (BMI 30-39.9); Current smoker Start: 12-30-2024 End: 12-30-2024 ambulatory [facility] Ambulatory Start: 12-24-2024 End: 12-24-2024 Patient encounter procedure Samm Medina MD -Sleep Lab Work Phone: Start: 12-24-2024 End: 12-24-2024 ambulatory Sandra Rebecca Keita DO Work Phone: [facility] Work Phone: Start: 12-18-2024 End: 12-18-2024 Patient encounter procedure Oz Kincaid MD Work Phone: [facility] Neurology Comment on above: Numbness (Primary Dx ); Paresthesias; Pain in both lower extremities; Lumbosacral radiculopathy at L5 Start: 12-18-2024 End: 12-18-2024 ambulatory OZ KINCAID Not Available Start: 12-15-2024 End: 12-15-2024 ambulatory Sandra A Keita DO Work Phone: [facility] Work Phone: Start: 12-15-2024 End: 12-15-2024 Patient encounter procedure Shantel Norton APRN [facility] Work Phone: Start: 12-11-2024 End: 12-11-2024 ambulatory OZ KINCAID Not Available Start: 12-11-2024 End: 12-11-2024 Patient encounter procedure Oz Kincaid MD Work Phone: [facility] Neurology Comment on above: Hand weakness (Prima [...] Bamboo flowsheet Karl Fritz DPM Work Phone: [facility] Start: 11-16-2024 End: 11-16-2024 Departed Referred Karl Fritz DPM -Lab [facility] Work Phone: Start: 11-16-2024 End: 11-16-2024 Office outpatient visit 25 minutes Karl Fritz DPM Work Phone: 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); Cellulitis of right foot; Deformity of toe, right Start: 11-16-2024 End: 11-16-2024 ambulatory Sandra Keita DO Work Phone: [facility] Work Phone: Start: 11-16-2024 End: 11-17-2024 External Result Encounter Karl Fritz DPM Work Phone: [facility] External Department Unsolicited Start: 11-16-2024 End: 11-17-2024 External Result Encounter Karl Fritz DPM Work Phone: [facility] External Department Unsolicited Start: 11-09-2024 End: 11-09-2024 ambulatory Halie Marc MD Facility:[facility] Start: 10-31-2024 End: 11-02-2024 Refill Oz Kincaid MD Work Phone: [facility] 111 Comment on above: Neurogenic pain Start: 10-21-2024 End: 10-21-2024 Telephone encounter Oz Kincaid MD Work Phone: [facility] 111 Start: 10-20-2024 End: 10-20-2024 Bamboo flowsheet Karl Fritz DPM Work Phone: [facility] Start: 10-20-2024 End: 10-20-2024 Bamboo flowsheet Karl Fritz DPM Work Phone: [facility] Start: 10-20-2024 End: 10-20-2024 Office outpatient visit 25 minutes Karl Fritz DPM Work Phone: 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 Comment on above: Weakness of both low er extremities (Primary Dx); Carpal tunnel syndrome, bilateral; Cognitive decline; Cervical paraspinal muscle spasm; B12 deficiency; Guyon syndrome, unspecified laterality; Numbness; Leg pain, left; Leg pain, right; Bilateral leg weakness Start: 10-06-2024 End: 10-06-2024 ambulatory OZ KINCAID Not Available Start: 10-05-2024 End: 10-05-2024 [facility]ulatory [facility] Start: 10-01-2024 End: 10-01-2024 ambulatory Sandra Keita DO Work Phone: [facility] Work Phone: Start: 10-01-2024 End: 10-01-2024 Patient encounter procedure Sandra Keita DO Work Phone: [facility] Sleep Lab Work Phone: Start: 09-10-2024 Non-patient / Non-visit Sandra Keita DO Work Phone: [facility] Physician [facility] G[facility] Work Phone: Start: 09-10-2024 End: 09-10-2024 Admission to same day surgery center Sandra Keita DO Work Phone: [facility]-Digestive Health Work Phone: Start: 09-10-2024 End: 09-10-2024 ambulatory Sandra A Keita DO Work Phone: [facility] Work Phone: Start: 09-07-2024 End: 09-07-2024 ambulatory Sandra A Keita DO Work Phone: [facility] Work Phone: Start: 09-07-2024 End: 09-07-2024 Patient encounter procedure Sandra Keita DO Work Phone: [facility] Physician [facility] Neurosurgery Work Phone: Start: 08-25-2024 End: 08-25-2024 ambulatory Sandra A Keita DO Work Phone: [facility] Work Phone: Start: 08-25-2024 End: 08-25-2024 Patient encounter procedure Sandra Keita DO Work Phone: [facility] Physician [facility] [place] Work Phone: Start: 08-20-2024 End: 08-20-2024 ambulatory Sandra A Keita DO Work Phone: [facility] Work Phone: Start: 08-20-2024 End: 08-20-2024 Patient encounter procedure Sandrarebecca Keita DO Work Phone: [facility] Physician Group-[facility] Work Phone: Start: 07-22-2024 End: 07-22-2024 Patient encounter procedure Sandrarebecca Keita DO Work Phone: [facility] Physician Group-[facility] Health Vascular Surg Work Phone: Start: 07-22-2024 End: 07-22-2024 ambulatory Sandra Rebecca Keita DO Work Phone: [facility] Work Phone: Start: 07-21-2024 End: [...] ambulatory Sandra Rebecca Keita DO Work Phone: [facility] Work Phone: Start: 07-06-2024 End: 07-06-2024 Departed Referred Sandra Keita DO Work Phone: [facility]-LAB Path Spec [facility] H[facility] Start: 06-26-2024 End: 06-29-2024 External Result Encounter Nataliya Jane PROTECTIVE OFFICER Other Phone: [facility] External Department Unsolicited Start: 06-26-2024 End: 06-29-2024 External Result Encounter Nataliya Jane PROTECTIVE OFFICER Other Phone: [facility] External Department Unsolicited Start: 06-26-2024 Registered Recurring Sandra Sushma terrazas DO Work Phone: [facility]-Cancer Center Acute Work Phone: Start: 06-26-2024 End: 06-26-2024 Patient encounter procedure Sandra Keita DO Work Phone: [facility]-Lab Main Platter Work Phone: Start: 06-26-2024 End: 06-26-2024 ambulatory Sandra A Keita DO Work Phone: [facility] Work Phone: Start: 06-26-2024 End: 06-26-2024 Office outpatient visit 25 minutes Roland Faust MD Work Phone: [facility] Comment on above: Typical atrial flutt er (Multi) (Primary Dx); Nonischemic cardiomyopathy (Multi); Hypercholesteremia; Hypertension, unspecified type; BMI 32.0-32.9,adult; Current smoker Start: 06-26-2024 End: 06-26-2024 ambulatory [facility] Ambulatory Start: 06-04-2024 Non-patient / Non-visit Sandra Keita DO Work Phone: [facility] Work Phone: Start: 05-25-2024 End: 05-25-2024 Patient encounter procedure Sandra Keita DO Work Phone: [facility]-MRI [facility]atter Work Phone: Start: 05-25-2024 End: 05-25-2024 ambulatory Sandra A Keita DO Work Phone: [facility] Work Phone: Start: 05-19-2024 End: 05-19-2024 Telephone encounter Oz Kincaid MD Work Phone: [facility] 111 Start: 05-07-2024 End: 05-07-2024 ambulatory Sandra A Keita DO Work Phone: [facility] Work Phone: Start: 05-07-2024 End: 05-07-2024 Patient encounter procedure Sandra Keita DO Work Phone: [facility] [place] Work Phone: Start: 04-28-2024 End: 04-30-2024 Evaluation and management of inpatient Sandra Debbie DO Work Phone: [facility] [place] [facility] Work Phone: Start: 04-28-2024 End: 04-28-2024 ambulatory Sandra A Keita DO Work Phone: [facility] Work Phone: Start: 04-28-2024 End: 04-28-2024 Patient encounter procedure Sandra Keita DO Work Phone: [facility] Work Phone: Start: 04-28-2024 End: 04-28-2024 Patient encounter procedure Sandra Keita DO Work Phone: [facility] Ambulatory Work Phone: Start: 04-27-2024 End: 04-27-2024 Emergency department patient visit Sandra Debbie DO Work Phone: [facility]-Emergency Room Work Phone: Start: 04-14-2024 End: 04-14-2024 External Result Encounter Nataliya Jane PROTECTIVE OFFICER Work Phone: [facility] External Department Unsolicited Start: 04-14-2024 End: 04-14-2024 External Result Encounter Nataliya Jane PROTECTIVE OFFICER Work Phone: [facility] External Department Unsolicited Start: 04-14-2024 End: 04-14-2024 Patient encounter procedure Sandra Keita DO Work Phone: [facility] Ambulatory Work Phone: Start: 04-08-2024 End: 04-08-2024 Patient encounter procedure Karl Phi Amy DPM Work Phone: [facility] Comment on above: Ulcer of right foot, limited to breakdown of skin (CMS/HCC) (Primary Dx); Ulcer of right foot with fat layer exposed (CMS/HCC); 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) Start: 04-08-2024 End: 04-08-2024 ambulatory KARL Phi AMY Not Available Start: 04-07-2024 End: 04-07-2024 Bamboo flowsheet Oz Kincaid MD Work Phone: [facility] Start: 04-07-2024 End: 04-07-2024 Bamboo flowsheet Oz Kincaid MD Work Phone: [facility] Start: 04-07-2024 End: 04-07-2024 Office outpatient visit 15 minutes Oz Kincaid MD Work Phone: [facility] Comment on above: Cognitive decline (P rimary Dx); B12 deficiency; Neurogenic pain; Carpal tunnel syndrome, bilateral; Cervical paraspinal muscle spasm; Guyon syndrome, unspecified laterality; Granulocytosis Start: 04-07-2024 End: 04-07-2024 ambulatory OZ KINCAID Not Available Start: 03-25-2024 End: 03-25-2024 ambulatory [facility] Ambulatory Start: 03-25-2024 End: 03-25-2024 Office outpatient visit 10 minutes Roland Faust MD Work Phone: [facility] Comment on above: Hypertension, unspec ified type; Typical atrial flutter (Multi) Start: 02-25-2024 End: 02-25-2024 Office outpatient visit 25 minutes Oz Kincaid MD Work Phone: [facility] Comment on above: Cognitive decline (P rimary Dx); Neurogenic pain; Carpal tunnel syndrome, bilateral; B12 deficiency Start: 02-25-2024 End: 02-25-2024 Bamboo flowsheet Oz Kincaid MD Work Phone: [facility] Start: 02-25-2024 End: 02-25-2024 Bamboo flowsheet Oz Kincaid MD Work Phone: [facility] Start: 02-25-2024 End: 02-25-2024 ambulatory OZ KINCAID Not Available Start: 02-14-2024 End: 02-14-2024 ambulatory Sandra Keita Facility:[facility] Start: 02-14-2024 End: 02-14-2024 Departed Referred Sandra Keiat DO Work Phone: [facility]-Digestive Health Work Phone: Start: 02-10-2024 End: 02-10-2024 Bamboo flowsheet Karl Fritz DPM Work Phone: [facility] Start: 02-10-2024 End: 02-10-2024 Bamboo flowsheet Karl Fritz DPM Work Phone: [facility] Start: 02-10-2024 End: 02-10-2024 Office outpatient visit 15 minutes Karl Fritz DPM Work Phone: [facility] Comment on above: Ulcer of right foot, limited to breakdown of skin (CMS/HCC) (Primary Dx); Blister of right foot, subsequent encounter; 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); Ulcer of right foot with fat layer exposed (CMS/HCC) Start: 02-10-2024 End: 02-10-2024 ambulatory KARL FRITZ Not Available Start: 02-03-2024 End: 02-03-2024 ambulatory DO Sandra Keita Work Phone: [facility] Work Phone: Start: 02-03-2024 End: 02-03-2024 Patient encounter procedure DO Sandra Keita Work Phone: [facility] Physician Group-[facility] [place] Work Phone: Start: 01-27-2024 End: 01-27-2024 Bamboo flowsheet Karl Fritz DPM Work Phone: [facility] Start: 01-27-2024 End: 01-27-2024 Bamboo flowsheet Karl Fritz DPM Work Phone: [facility] Start: 01-27-2024 End: 01-27-2024 Office outpatient visit 15 minutes Karl Fritz DPM Work Phone: [facility] Comment on above: Ulcer of right foot, limited to breakdown of skin (CMS/HCC) (Primary Dx); Blister of right foot, subsequent encounter; 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) Start: 01-27-2024 End: 01-27-2024 ambulatory KARL FRITZ Not Available Start: 01-21-2024 End: 01-21-2024 Bamboo flowsheet Karl Fritz DPM Work Phone: [facility] Start: 01-21-2024 End: 01-21-2024 Bamboo flowsheet Karl Fritz DPM Work Phone: [facility] Start: 01-21-2024 End: 01-21-2024 Office outpatient visit 15 minutes Karl Fritz DPM Work Phone: [facility] Comment on above: Ulcer of right foot, limited to breakdown of skin (CMS/HCC) (Primary Dx); Blister of right foot, initial encounter; 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) Start: 01-15-2024 End: 01-15-2024 ambulatory DO Sandra Keita Work Phone: [facility] Work Phone: Start: 01-15-2024 End: 01-15-2024 Patient encounter procedure DO Sandra Keita Work Phone: [facility] Physician Group-[facility] Neurosurgery Work Phone: Start: 01-08-2024 End: 01-10-2024 Telephone encounter Oz Kincaid MD Work Phone: [facility] Start: 01-07-2024 End: 01-07-2024 Bamboo flowsheet Karl Fritz DPM Work Phone: [facility] Start: 01-07-2024 End: 01-07-2024 Bamboo flowsheet Karl Fritz DPM Work Phone: [facility] Start: 01-07-2024 End: 01-07-2024 Office outpatient visit 25 minutes Oz Kincaid MD Work Phone: [facility] Comment on above: Lumbosacral radiculo mary jane at S1 (Primary Dx); Neurogenic pain; Cervical paraspinal muscle spasm; Lumbar paraspinal muscle spasm; Carpal tunnel syndrome, bilateral; B12 deficiency Start: 01-07-2024 End: 01-07-2024 ambulatory DO Sandra A Keita Work Phone: [facility] Work Phone: Start: 01-07-2024 End: 01-07-2024 Departed Referred DO Sandra Keita Work Phone: [facility] [place] Work Phone: Start: 01-07-2024 End: 01-07-2024 Office outpatient visit 25 minutes Karl Fritz DPM Work Phone: [facility] Comment on above: Ulcer of right foot, limited to breakdown of skin (CMS/HCC) (Primary Dx); Cellulitis of right foot Start: 01-06-2024 End: 01-06-2024 ambulatory DO Sandra A Keita Work Phone: [facility] Work Phone: Start: 01-06-2024 End: 01-06-2024 Patient encounter procedure DO Sandra Debbie Work Phone: [facility]-Ultrasound [facility] [place] Work Phone: Start: 01-03-2024 End: 01-03-2024 Clinical Support Oz Kincaid MD Work Phone: [facility] Comment on above: Carpal tunnel syndro me, bilateral (Primary Dx) Start: 01-03-2024 End: 01-03-2024 Bamboo flowsheet Oz Kincaid MD Work Phone: [facility]OLOG[facility] Start: 01-03-2024 End: 01-03-2024 Bamboo flowsheet Oz Kincaid MD Work Phone: [facility] Start: 12-17-2023 End: 12-17-2023 ambulatory DO Sandra A [facility] Work Phone: [facility] Work Phone: Start: 12-17-2023 End: 12-17-2023 Patient encounter procedure DO Sandra [facility] Work Phone: [facility]-MRI [address] Work Phone: Start: 12-16-2023 End: 12-16-2023 Office outpatient visit 25 minutes Roland Faust MD Work Phone: [facility] Comment on above: High risk medication use (Primary Dx); Typical atrial flutter (Multi); Nonischemic cardiomyopathy (Multi); Hypercholesteremia; BMI 28.0-28.9,adult; BMI 30.0-30.9,adult; Current smoker Start: 12-02-2023 End: 12-02-2023 ambulatory DO Sandra A [facility] Work Phone: [facility] Work Phone: Start: 12-02-2023 End: 12-02-2023 Patient encounter procedure DO Sandra [facility] Work Phone: [facility] [address] Work Phone: Start: 11-26-2023 End: 11-26-2023 ambulatory DO Sandra A [facility] Work Phone: [facility] Work Phone: Start: 11-26-2023 End: 11-26-2023 Patient encounter procedure DO Sandra Keita Work Phone: [facility] [address] [place] Work Phone: Start: 11-26-2023 End: 01-07-2024 External Result Encounter Oz Kincaid MD Work Phone: [facility] External Department Unsolicited Start: 11-26-2023 End: 01-07-2024 External Result Encounter Oz Kincaid MD Work Phone: [facility] External Department Unsolicited Start: 11-18-2023 End: 11-18-2023 ambulatory DO Sandra A Keita Work Phone: [facility] Work Phone: Start: 11-18-2023 End: 11-18-2023 Patient encounter procedure DO Sandra Keita Work Phone: [facility] Physician Group-[facility] [place] Work Phone: Start: 11-16-2023 Non-patient / Non-visit DO Millie jacob Keita Work Phone: [facility] Physician Group-[facility] Pulmonary Disease Work Phone: Start: 11-15-2023 End: 11-15-2023 ambulatory DO Sandra A Keita Work Phone: [facility] Work Phone: Start: 11-15-2023 End: 11-15-2023 Patient encounter procedure DO Sandra Keita Work Phone: [facility]-Respiratory Therapy Work Phone: Start: 11-14-2023 End: 11-14-2023 ambulatory DO Sandra A Keita Work Phone: [facility] Work Phone: Start: 11-14-2023 End: 11-14-2023 Patient encounter procedure DO Sandra Keita Work Phone: [facility] Work Phone: Start: 11-13-2023 End: 11-13-2023 Office outpatient visit 25 minutes Jonas Ch MD Work Phone: [facility] Comment on above: Nonischemic cardiomy opathy (Multi) (Primary Dx); Typical atrial flutter (Multi); Hypercholesteremia; Primary hypertension; Current smoker; BMI 28.0-28.9,adult; High risk medication use Start: 11-13-2023 Non-patient / Non-visit DO Millie Keita Work Phone: [facility] Physician [facility] [place] Work Phone: Start: 11-10-2023 End: 11-12-2023 Evaluation and management of inpatient DO Sandra Keita Work Phone: [facility] Work Phone: Start: 11-05-2023 End: 11-05-2023 Admission to same day surgery center DO Sandra Keita Work Phone: [facility] [facility] Work Phone: Start: 11-05-2023 End: 11-05-2023 ambulatory DO Sandrajacob Keita Work Phone: [facility] Work Phone: Start: 10-30-2023 End: 01-07-2024 External Result Encounter Oz Kincaid MD Work Phone: [facility] External Department Unsolicited Start: 10-30-2023 End: 01-07-2024 External Result Encounter Oz Kincaid MD Work Phone: [facility] External Department Unsolicited Start: 10-30-2023 End: 10-30-2023 ambulatory DO Sandra A Debbei Work Phone: [facility] Work Phone: Start: 10-30-2023 End: 10-30-2023 Patient encounter procedure DO Sandrajacob Keita Work Phone: [facility] Work Phone: Start: 10-07-2023 End: 10-07-2023 Office outpatient visit 25 minutes Jonas Ch MD Work Phone: [facility] Comment on above: Typical atrial flutt er (Multi); Nonischemic cardiomyopathy (Multi); Hypertension, unspecified type; Hypercholesteremia; Smoker; Type 2 diabetes mellitus with other specified complication, unspecified whether retirement insulin use (Multi); BMI 28.0-28.9,adult Start: 09-17-2023 End: 09-17-2023 ambulatory DO Sandra Rebecca Keita Work Phone: [facility] Work Phone: Start: 09-17-2023 End: 09-17-2023 Patient encounter procedure DO Sandra Debbie Work Phone: [facility] [place] Work Phone: Start: 09-16-2023 Non-patient / Non-visit DO Millie jacob Keita Work Phone: [facility] [place] Work Phone: Start: 09-14-2023 End: 09-14-2023 Non-patient / Non-visit DO Sandra Debbie Work Phone: [facility] Work Phone: Start: 09-13-2023 End: 09-14-2023 Evaluation and management of inpatient DO Sandra Debbie Work Phone: [facility] [place] [facility] Work Phone: Start: 09-12-2023 End: 09-12-2023 Patient encounter procedure DO Sandra Debbie Work Phone: [facility] Work Phone: Start: 09-09-2023 Non-patient / Non-visit DO Millie jacob Debbie Work Phone: [facility] Physician [facility] [place] Work Phone: Start: 09-05-2023 End: 09-05-2023 ambulatory DO Sandra A Debbie Work Phone: [facility] Work Phone: Start: 09-05-2023 End: 09-05-2023 Patient encounter procedure DO Sandra Debbie Work Phone: [facility] Main Platter Work Phone: Start: 07-25-2023 End: 07-25-2023 ambulatory DO Sandra A Debbie Work Phone: [facility] Work Phone: Start: 07-25-2023 End: 07-25-2023 Patient encounter procedure DO Sandra Debbie Work Phone: [facility] [address] Work Phone: Start: 07-17-2023 End: 07-17-2023 ambulatory [facility] Work Phone: Start: 07-17-2023 End: 07-17-2023 Patient encounter procedure [facility] Physician [facility] Vascular Surgery Work Phone: Start: 06-19-2023 End: 06-19-2023 ambulatory [facility] Work Phone: Start: 06-19-2023 End: 06-19-2023 Patient encounter procedure [facility] [place] Work Phone: Start: 06-12-2023 End: 06-12-2023 ambulatory [facility] Work Phone: Start: 06-12-2023 End: 06-12-2023 Patient encounter procedure [facility] Work Phone: Start: 06-10-2023 End: 06-10-2023 ambulatory Tondra Russell Other [employer] Other Start: 06-10-2023 Telephone encounter Tona Yvonne [facility] Start: 05-21-2023 End: 05-21-2023 ambulatory Sandra Keita Other [employer] Other Start: 05-21-2023 Telephone encounter Sandra Keita [facility] Start: 04-30-2023 End: 04-30-2023 ambulatory Tondra Yvonne Other [employer] Other Start: 04-30-2023 Telephone encounter Tondra Russell [facility] Start: 04-11-2023 End: 04-11-2023 ambulatory Sandrarebecca Keita Other [employer] Other Start: 04-11-2023 Telephone encounter Sandra Keita [facility] Start: 04-08-2023 End: 04-08-2023 ambulatory Sandra Keita Other [employer] Other Start: 04-08-2023 Telephone encounter Sandra Keita [facility] Start: 03-05-2023 End: 03-05-2023 ambulatory DO Jonas Yoder Work Phone: [facility] Work Phone: Start: 03-05-2023 End: 03-05-2023 Patient encounter procedure DO Jonas Yoder Work Phone: [facility] Work Phone: Start: 03-04-2023 End: 03-04-2023 ambulatory Sandra Keita Other [employer] Other Start: 03-04-2023 Office outpatient vi sit 25 minutes Sandra Keita [facility] [place] Start: 01-28-2023 End: 01-28-2023 ambulatory Sandra Keita Other [employer] Other Start: 01-28-2023 Telephone encounter Sandra Keita [facility] [place] Start: 01-07-2023 Registered Recurring DO Beba Yoder Work Phone: [facility] Work Phone: Start: 01-07-2023 (DM) Diabetes Tondra Mapus [facility] Start: 01-07-2023 End: 01-07-2023 ambulatory Tondra Mapus Other [employer] Other Start: 01-02-2023 End: 01-02-2023 ambulatory Brayden Aide Other [employer] Other Start: 01-02-2023 Office outpatient vi sit 15 minutes Brayden Noble [facility] Start: 12-28-2022 End: 12-28-2022 ambulatory Sandra Keita Other [employer] Other Start: 12-28-2022 Telephone encounter Sandra Keita [facility] [place] Start: 12-18-2022 End: 12-18-2022 ambulatory Reynaseda Diopr Other [employer] Other Start: 12-18-2022 Telephone encounter Reyna Hillerer [facility] [place] Start: 12-10-2022 End: 12-10-2022 ambulatory Tondra Mapus Other [employer] Other Start: 12-10-2022 Telephone encounter Tondra Yvonne [facility] Start: 11-28-2022 End: 11-28-2022 ambulatory Sandra Keita Other [employer] Other Start: 11-28-2022 Patient encounter procedure Sandrarebecca Keita [facility] [place] Start: 11-27-2022 End: 11-27-2022 ambulatory Sandra Keita Other [employer] Other Start: 11-27-2022 Telephone encounter Sandra Keita [facility] [place] Start: 11-06-2022 End: 11-06-2022 ambulatory Sandra Keita Other [employer] Other Start: 11-06-2022 Telephone encounter Sandrarebecca Keita [facility] [place] Start: 09-27-2022 (DM) Diabetes Tondra Yvonne [facility] Start: 09-27-2022 End: 09-27-2022 ambulatory Tondra Yvonne Other [employer] Other Start: 09-10-2022 End: 09-10-2022 ambulatory Sandrarebecca Keita Other [employer] Other Start: 09-10-2022 Telephone encounter Sandrarebecca Keita [facility] [place] Start: 09-05-2022 Telephone encounter Sandra Keita [facility] [place] Start: 09-05-2022 End: 09-05-2022 ambulatory DO Sandra Rebecca Keita Work Phone: [facility] Work Phone: Start: 09-05-2022 End: 09-05-2022 Patient encounter procedure DO Sandrarebecca Keita Work Phone: [facility] Work Phone: Start: 08-22-2022 Telephone encounter Sandra Keita [facility] [place] Start: 08-22-2022 End: 08-22-2022 ambulatory DO Sandra Keita Work Phone: [facility] Work Phone: Start: 08-22-2022 End: 08-22-2022 Patient encounter procedure DO Sandra Keita Work Phone: [facility] [address] Work Phone: Start: 08-09-2022 End: 08-09-2022 ambulatory Sandra Keita Other [employer] Other Start: 08-09-2022 Office outpatient vi sit 15 minutes Sandra Keita [facility] [place] Start: 08-06-2022 End: 08-06-2022 ambulatory Sandrajacob Keita Other [employer] Other Start: 08-06-2022 Telephone encounter Sandra Keita [facility] [place] Start: 07-10-2022 End: 07-10-2022 ambulatory Sandra Keita Other [employer] Other Start: 07-10-2022 Telephone encounter Sandrarebecca Keita [facility] [place] Start: 07-04-2022 End: 07-04-2022 ambulatory Tolu Salinas Other [employer] Other Start: 07-04-2022 Telephone encounter Tolu Salinas [facility] [place] Start: 06-19-2022 End: 06-19-2022 ambulatory Angelique Russell Other [employer] Other Start: 06-19-2022 Telephone encounter Angelique Russell [facility] Start: 06-18-2022 (DM) Diabetes Tondra Leonardous [facility] Start: 06-18-2022 End: 06-18-2022 ambulatory Tondra Mapus Other [employer] Other Start: 06-14-2022 End: 06-14-2022 ambulatory Tondra Mapus Other [employer] Other Start: 06-14-2022 Telephone encounter Tondra Mapus [facility] Start: 06-08-2022 End: 06-08-2022 ambulatory Tondra Mapus Other [employer] Other Start: 06-08-2022 Telephone encounter Tondra Leonardous [facility] Start: 06-04-2022 End: 06-04-2022 ambulatory Sandra Keita Other [employer] Other Start: 06-04-2022 Telephone encounter Sandra Keita [facility] Start: 05-30-2022 End: 05-30-2022 ambulatory Sandrarebecca Keita Other [employer] Other Start: 05-30-2022 Telephone encounter Sandra Keita [facility] Start: 05-24-2022 End: 05-24-2022 ambulatory Sandrarebecca Keita Other [employer] Other Start: 05-24-2022 Telephone encounter Sandra Keita [facility] Start: 04-03-2022 End: 04-03-2022 ambulatory Sandrarebecca Keita Other [employer] Other Start: 04-03-2022 Telephone encounter Sandra Keita [facility] Start: 02-14-2022 End: 02-14-2022 ambulatory Sandrarebecca Keita Other [employer] Other Start: 02-14-2022 Telephone encounter Sandrajacob Keita [facility] [place] Start: 01-09-2022 (DM) Diabetes Tondra Leonardous [facility] Start: 01-09-2022 End: 01-09-2022 ambulatory Tondra Mapus Other [employer] Other Start: 12-21-2021 ambulatory Teresa Strong Facility:E [facility]un Start: 12-18-2021 ambulatory Francesca A Tmo Faci lity:[facility] Start: 12-17-2021 End: 12-17-2021 Emergency department patient visit DO Tray Randle [facility] Start: 12-13-2021 ambulatory Francesca Santos Facili ty:ENRIQUE Chun Start: 12-12-2021 End: 12-13-2021 ambulatory ARLEEN STEPHEN Facility:[id number] Start: 12-11-2021 End: 12-12-2021 ambulatory ARLEEN HAILEE Facility:[id number] Start: 12-09-2021 End: 12-13-2021 Evaluation and management of inpatient DO Tray Randle [facility] [place] [facility] Start: 10-12-2021 End: 10-12-2021 ambulatory Crispin Looney Other [employer] Other Start: 10-12-2021 Patient encounter procedure Crispin MORRISON [facility] [place] Start: 10-12-2021 Telephone encounter Crispin Mejias [facility] [place] Start: 09-13-2021 End: 09-13-2021 ambulatory Crispin Looney Other [employer] Other Start: 09-13-2021 Telephone encounter Crispin Mejias [facility] [place] Start: 08-28-2021 End: 08-28-2021 ambulatory Tondra Mapus Other [employer] Other Start: 08-28-2021 Telephone encounter Tondra Mapus [facility] Start: 07-10-2021 (DM) Diabetes Tondra Mapus [facility] Start: 07-10-2021 End: 07-10-2021 ambulatory Tondra Mapus Other [employer] Other Start: 07-03-2021 End: 07-03-2021 ambulatory Ruben Hahn Other [employer] Other Start: 07-03-2021 Office outpatient ne w 30 minutes Ruben Hahn [facility] Start: 06-28-2021 End: 06-28-2021 ambulatory Crispin Looney Other [employer] Other Start: 06-28-2021 Telephone encounter Crispin Looney [facility] [place] Start: 05-25-2021 End: 05-25-2021 ambulatory Crispin Looney Other [employer] Other Start: 05-25-2021 Telephone encounter Crispin Aayush [facility] [place] Start: 05-08-2021 End: 05-08-2021 ambulatory Crispin Looney Other [employer] Other Start: 05-08-2021 Office outpatient ne w 45 minutes Crispin Looney [facility] [place] Start: 04-11-2021 End: 04-11-2021 ambulatory Tondra Mapus Other [employer] Other Start: 04-11-2021 Telephone encounter Tondra Mapus [facility] Start: 04-03-2021 End: 04-03-2021 ambulatory Tray Nava Other [employer] Other Start: 04-03-2021 Office outpatient vi sit 15 minutes Tray Nava [facility] Start: 03-27-2021 (DM) Diabetes Angelique Russell [facility] Start: 03-27-2021 End: 03-27-2021 ambulatory Angelique Russell Other [facility] [employer] Other Start: 02-27-2021 End: 02-27-2021 ambulatory Tray Nava Other [facility] [employer] Other Start: 02-27-2021 Office outpatient vi sit 15 minutes Tray Nava [facility] Start: 05-16-2017 End: 05-16-2017 Ambulatory MATTHEW VOSS Facility:UNKNOWN Start: 01-25-2017 End: 01-26-2017 Ambulatory ELOISA ECHEVARRIAMARIAA Facility:H1 Procedures Date Procedure Procedure Detail Performing Clinician Start: 11-16-2024 Radex foot complete minimum 3 views Karl Fritz DPM Work Phone: Start: 11-16-2024 SUPERFICIAL WOUND CULTURE [place] Razia Fritz DPM Work Phone: Start: 11-16-2024 Aerobic microbial culture Sanrda Keita D O Work Phone: Start: 09-10-2024 Esophagogastroduodenoscopy Sandrajacob Keita DO Work Phone: Start: 07-06-2024 Urine culture Sandra Keita DO Work Phone: Start: 06-26-2024 Complete blood count with white cell differential, automated Nataliya Jane PROTECTIVE OFFICER Other Phone: Start: 06-26-2024 Ecg routine ecg w/least 12 lds w/i&r Rolnad Faust MD Work Phone: Start: 05-25-2024 MRI of head Sandrajacob Keita DO Work Phone: Start: 04-29-2024 Urine culture Sandrajacob Keita DO Work Phone: Start: 04-28-2024 CT [...] with white cell differential, automated Nataliya Jane PROTECTIVE OFFICER Work Phone: Start: 04-14-2024 Comprehensive metabolic panel Nataliya Child PROTECTIVE OFFICER Work Phone: Start: 04-14-2024 PATHOLOGIST SLIDE REVIEW [place] Nataliya ward PROTECTIVE OFFICER Work Phone: Start: 03-25-2024 Ecg routine ecg [...] Oz Kincaid MD Work Phone: Start: 11-26-2023 ANTI-LOSS PREVENTION SUPERVISOR Oz Kincaid MD Work Phone: Start: 11-26-2023 [...] Work Phone: Start: 11-10-2023 Urine culture DO Sandrarebecca Keita Work Phone: Start: 11-10-2023 CT of [...] 12-09-2021 US scan of gallbladder DO Tray Calvin hy Start: 12-09-2021 CT of abdomen and pelvis without contrast DO Tray Randle Start: 06-10-2020 Mammography Jonas Ch MD Work Phone: Start: 12-17-2018 Antibody screen Comment on above: Performed By: #### [id number] #### [place] [id number] Blood culture for ba cteria, including anaerobic screen DO Tray Randle SARS Antigen (LFIA) DO Sunni Randle Urine culture DO Tray yates Urine culture DO Tray yates Plan of Treatment Date Care Activity Detail Author Start: 08-17-2025 End: 08-17-2025 Patient encounter procedure 08/17/2025 3:10 PM EDT Office Visit [facility] [address] [facility] [address] [place] [address] Roland Faust MD [address] [facility] [address] [place] [address] [facility] Start: 07-20-2025 End: 07-20-2025 Patient encounter procedure 07/20/2025 4:00 PM EDT Office Visit [facility]OM[facility]aqueline Chun [facility] [address] [place] [phone] Oz Kincaid MD [address] [id number] [facility]OM[facility]aqueline Chun [facility] Start: 02-10-2025 End: 02-10-2025 Patient encounter procedure 02/10/2025 1:00 PM EDT Office Visit JUMA [place] NUNN [address] [place] [phone] Nereida Castro MD [address] [place] [address] [facility]aqueline [place] OBELVIRAN Start: 01-19-2025 End: 01-19-2025 Patient encounter procedure [facility] R B Start: 12-30-2024 End: 12-30-2024 Patient encounter procedure 12/30/2024 1:40 PM EDT Office Visit [facility] [address] [facility] [address] [place] [address] Roland Faust MD [address] [facility] [address] [place] [address] [facility] Start: 12-28-2024 COVID-19 Vaccine ( season) COVID-19 Vaccine ( season) [facility] Start: 12-28-2024 Influenza vaccination Influenza Vaccine (#1) [facility] Start: 12-18-2024 End: 12-18-2024 Patient encounter procedure [facility] Start: 12-11-2024 End: 12-11-2024 Patient encounter procedure [facility] Start: 11-30-2024 End: 11-30-2024 Patient encounter procedure 11/30/2024 1:15 PM EDT Office Visit [facility] [place] [facility] [address] [place] [phone] Karl Fritz, DPM [address] [place] [address] [facility] [place] [facility] Start: 11-23-2024 End: 11-23-2024 Patient encounter procedure [facility] Comment on above: Arrived Start: 11-16-2024 Superficial Wound Culture Superficial Wound Culture [facility] Start: 10-29-2024 Thyroid stimulating hormone measurement TSH Level [facility] Start: 10-28-2024 End: 10-28-2024 Patient encounter procedure 10/28/2024 4:00 PM EDT Office Visit [facility] [address] [place] [address] Karl Fritz, DPM [address] [place] [address] [facility] Start: 10-23-2024 End: 10-23-2024 Patient encounter procedure 10/23/2024 12:00 PM EDT Procedure Visit [facility] [address] [place] [address] Oz Kincaid MD [address] [facility] [address] [address] [facility] Start: 10-20-2024 End: 10-20-2024 Patient encounter procedure 10/20/2024 10:45 AM EDT Office Visit [facility] [address] [place] [phone] Karl Fritz DPM [address] [place] [address] Arrived [facility] Comment on above: Arrived Start: 10-06-2024 End: 10-06-2025 EMG AND NERVE CONDUCTION STUDY EMG AND NERVE CONDUCTION STUDY Neurology Routine Numbness Leg pain, left Leg pain, right Bilateral leg weakness Expected: 10/06/2024 (Approximate), Expires: 10/06/2025 [facility] Work Phone: Comment on above: Expected: 10/06/2024 (Approximate), Expi res: 10/06/2025 Start: 10-06-2024 End: 10-06-2024 Patient encounter procedure [facility] RILEY Velázquez Comment on above: Arrived Start: 09-10-2024 End: 09-10-2024 [facility] Start: 09-07-2024 Patient referral [facility] Work Phone: Start: 08-25-2024 Patient referral [facility] Work Phone: Start: 07-22-2024 Ankle brachial pressure index [facility] Start: 07-06-2024 Urine culture [facility] Start: 07-06-2024 Bacteria identified in Urine by Culture Urine Culture [facility] Start: 06-26-2024 [facility] Start: 05-26-2024 End: 05-26-2024 Patient encounter procedure 05/26/2024 2:40 PM EST Office Visit [facility] [address] [place] [address] Roland Faust MD [address] [facility] [address] [place] [address] [facility] Start: 05-07-2024 End: 05-07-2024 Patient encounter procedure 05/07/2024 2:15 PM EST Office Visit [facility] [address] [place] [phone] Karl Fritz DPM [address] [place] [address] [facility] Start: 04-30-2024 [facility] Start: 04-29-2024 End: 04-29-2024 Urine culture [facility] Start: 04-29-2024 Referral to neurologist [facility] Start: 04-29-2024 [facility] Start: 04-28-2024 Hospital admission [facility] Start: 04-28-2024 [facility] Start: 04-07-2024 End: 04-07-2024 Patient encounter procedure 04/07/2024 3:30 PM EST Office Visit [facility] [address] [place] [phone] Karl Fritz DPM [address] [place] [address] [facility] Start: 04-07-2024 End: 04-07-2024 Patient encounter procedure [facility]LEY Velázquez Comment on above: Arrived Start: 03-27-2024 End: 03-27-2024 Patient encounter procedure 03/27/2024 10:10 AM EST Office Visit [facility] [address] [facility] [address] [place] [phone] Roland Faust MD [address] [facility] [address] [place] [address] [facility] Start: 03-24-2024 End: 03-24-2024 Patient encounter procedure 03/24/2024 1:30 PM EST Office Visit [facility] [address] [place] [phone] Fritz, Karl H, DPM [address] [place] [address] [facility] Start: 03-10-2024 End: 03-10-2024 Patient encounter procedure 03/10/2024 1:30 PM EST Office Visit [facility] [address] [place] [address] Karl Fritz, DPM [address] [place] [address] [facility] Start: 02-25-2024 End: 02-25-2024 Patient encounter procedure [facility] R B Comment on above: Arrived Start: 02-10-2024 End: 02-10-2024 Patient encounter procedure [facility] Comment on above: Arrived Start: 01-28-2024 End: 01-28-2024 Patient encounter procedure 01/28/2024 1:30 PM EDT Office Visit [facility] [address] [place] [phone] Oz Kincaid MD [address] [phone] [facility] Start: 01-27-2024 End: 01-27-2024 Patient encounter procedure [facility] Comment on above: Arrived Start: 01-21-2024 End: 01-21-2024 Patient encounter procedure 01/21/2024 11:00 AM EDT Office Visit [facility] [address] [place] [address] Karl Fritz, DPM [address] [place] [address] Arrived [facility] Comment on above: Arrived Start: 01-07-2024 Superficial Wound Culture Superficial Wound Culture [facility] Start: 01-07-2024 End: 01-06-2025 SU[place]ICIAL [place] SUPERFICIAL WOUND CULTURE [place] Microbiology Routine Ulcer of right foot, limited to breakdown of skin (CMS/HCC) Cellulitis of right foot Expected: 01/07/2024 (Approximate), Expires: 01/06/2025 [facility] Work Phone: Comment on above: Expected: 01/07/2024 (Approximate), Expi res: 01/06/2025 Start: 01-07-2024 End: 01-07-2024 Patient encounter procedure 01/07/2024 1:15 PM EDT Office Visit [facility] [address] [place] [address] Oz Kincaid MD [address] [facility] [address] [address] [facility] Start: 01-07-2024 End: 01-07-2024 Patient encounter procedure 01/07/2024 9:45 AM EDT Office Visit [facility] [address] [place] [address] Karl Fritz DPM [address] [place] [address] Arrived [facility] Comment on above: Arrived Start: 01-06-2024 Duplex scan of lower limb veins US venous duplex LE BI [facility] Start: 01-06-2024 US Lower extremity vein - bilateral [facility] Start: 12-29-2023 COVID-19 Vaccine ( season) COVID-19 Vaccine ( season) [facility] Start: 12-29-2023 Influenza vaccination [facility] Start: 12-02-2023 Blood zinc measurement [facility] Start: 12-02-2023 End: 12-02-2023 [facility] Start: 11-26-2023 Antibody to Scl-70 measurement [facility] Start: 11-26-2023 LOSS PREVENTION SUPERVISOR antibody measurement [facility] Start: 11-26-2023 [facility] Start: 11-13-2023 End: 11-12-2024 Aspartate aminotransferase [Enzymatic activity/volume] in Serum or Plasma by With P-5'-P Aspartate Aminotransferase Lab Routine High risk medication use Expected: 11/13/2023 (Approximate), Expires: 11/12/2024 [facility] Service Area Work Phone: Comment on above: Expected: 11/13/2023 (Approximate), Expi res: 11/12/2024 Start: 11-13-2023 End: 11-12-2024 Basic metabolic 2000 panel - Serum or Plasma Basic Metabolic Panel Lab Routine High risk medication use Expected: 11/13/2023 (Approximate), Expires: 11/12/2024 [facility] Work Phone: Comment on above: Expected: 11/13/2023 (Approximate), Expi res: 11/12/2024 Start: 11-13-2023 End: 11-12-2024 Complete Pulmonary Function Test (Spirometry/DLCO/Lung Volumes) Complete Pulmonary Function Test (Spirometry/DLCO/Lung Volumes) PFT Routine Typical atrial flutter (Multi) Expected: 11/13/2023 (Approximate), Expires: 11/12/2024 [facility] Work Phone: Comment on above: Expected: 11/13/2023 (Approximate), Expi res: 11/12/2024 Start: 11-13-2023 End: 11-13-2023 Patient encounter procedure 11/13/2023 2:00 PM EDT Office Visit [facility] [address] [facility] [address] [place] [address] Jonas Ch MD [address] [facility] [address] [place] [address] [facility] Start: 11-13-2023 End: 11-12-2024 Thyrotropin [Units/volume] in Serum or Plasma Thyroid Stimulating Hormone Lab Routine High risk medication use Expected: 11/13/2023 (Approximate), Expires: 11/12/2024 [facility] Work Phone: Comment on above: Expected: 11/13/2023 (Approximate), Expi res: 11/12/2024 Start: 11-13-2023 End: 11-12-2024 XR Chest 2 Views XR chest 2 views Imaging Routine Typical atrial flutter (Multi) Expected: 11/13/2023 (Approximate), Expires: 11/12/2024 [facility] Work Phone: Comment on above: Expected: 11/13/2023 (Approximate), Expi res: 11/12/2024 Start: 11-12-2023 [facility] Start: 11-11-2023 [facility] Start: 11-10-2023 Bacteria identified in Urine by Culture [facility] Start: 11-10-2023 Referral to neurologist [facility] Start: 11-10-2023 Hospital admission [facility] Start: 11-10-2023 Physical therapy procedure [facility] Start: 11-10-2023 Referral to occupational therapist [facility] Start: 11-10-2023 [facility] Start: 11-10-2023 [facility] Start: 11-05-2023 [facility] Start: 10-30-2023 Blood zinc measurement [facility] Start: 10-30-2023 [facility] Start: 10-28-2023 End: 10-06-2025 Cardioversion External Cardioversion External Cardiac Services Routine Typical atrial flutter (Multi) Expected: 10/28/2023 (Approximate), Expires: 10/06/2025 [facility] Service Area Work Phone: Comment on above: Expected: 10/28/2023 (Approximate), Expi res: 10/06/2025 Start: 09-14-2023 [facility] Start: 09-12-2023 Referral to stone derrickman and rigger [facility] Start: 09-12-2023 Hospital admission [facility] Start: 12-28-2022 COVID-19 Vaccine ( season) COVID-19 Vaccine ( season) [facility] Start: 2022 Screening for osteoporosis Bone Density Scan [facility] Start: 12-17-2021 Computed tomography of abdomen and pelvis with contrast CT abdomen pelvis w con [facility] Start: 12-17-2021 End: 12-17-2021 Emergency department patient visit Departed Emergency [facility] Start: 12-13-2021 [facility] Work Phone: Start: 12-11-2021 Referral to urologist [facility] Work Phone: Start: 12-11-2021 Referral to general surgeon [facility] Work Phone: Start: 12-09-2021 Hospital admission [facility] Work Phone: Start: 06-10-2021 Screening for malignant neoplasm of breast Mammogram [facility] Start: 2017 RSV High Risk: (Elderly (60+) or Population) (1 - Risk 60-74 years 1-dose series) RSV High Risk: (Elderly (60+) or Population) (1 - Risk 60-74 years 1-dose series) [facility] Start: 2017 RSV patients and/or patients aged 60+ years (1 - 1-dose 60+ series) RSV patients and/or patients aged 60+ years (1 - 1-dose 60+ series) [facility] Start: 11-26-2007 Zoster Vaccines (1 of 2) Zoster Vaccines (1 of 2) [facility] Start: 11-26-1979 DTaP/Tdap/Td Vaccines (1 - Tdap) DTaP/Tdap/Td Vaccines (1 - Tdap) [facility] Start: 1978 Screening for malignant neoplasm of cervix [facility] Start: 1976 Pneumococcal vaccination Pneumococcal Vaccine (1 of 2 - PCV) [facility] Start: 1976 Urine screening for protein Diabetes: Urine Protein Screening [facility] Start: 11-26-1975 Hepatitis C screening Hepatitis C Screening [facility] Start: 11-26-1967 Diabetic foot examination Diabetes: Foot Exam [facility] Start: 11-26-1967 Glaucoma screening Diabetes: Retinopathy Screening [facility] Start: 11-26-1963 Pneumococcal Vaccine: 65+ Years (1 of 2 - PCV) Pneumococcal Vaccine: 65+ Years (1 of 2 - PCV) [facility] Start: 1958 MMR Vaccines (1 of 1 - Standard series) MMR Vaccines (1 of 1 - Standard series) [facility] Start: 1957 Annual wellness visit [facility] Start: 1957 Hemoglobin A1c measurement Diabetes: Hemoglobin A[facility]C [facility] Start: 1957 Lipid panel Lipid Panel [facility] Start: 1957 Medicare Annual Wellness Visit Medicare Annual Wellness Visit (AWV) [facility] Start: 1957 Screening for malignant neoplasm of colon [facility] Start: 1957 Screening for osteoporosis Bone Density Scan [facility] Start: 1957 Thyroid stimulating hormone measurement TSH Level [facility] Start: 1957 Urine screening for protein Diabetes: Urine Protein Screening [facility] 24 hour urine measurement Fi [facility] Albumin [Mass/volume ] in Serum or Plasma [facility] Albumin/Globulin ratio [facility] Aldolase measurement [facility] Angiotensin converti ng enzyme [Enzymatic activity/volume] in Serum or Plasma [facility] Antibody measurement [facility] Arsenic measurement [facility] Bacteria identified in Unspecified specimen by Aerobe culture [facility] Bacteria identified in Unspecified specimen by Aerobe culture [facility] Borrelia burgdorferi Ab [Interpretation] in Serum [facility] Borrelia burgdorferi IgG Ab [Presence] in Serum or Plasma by Immunoassay [facility] Borrelia burgdorferi IgG+IgM Ab [Presence] in Serum by Immunoassay [facility] Borrelia burgdorferi IgM Ab [Presence] in Serum or Plasma by Immunoassay [facility] Centromere protein B Ab [Units/volume] in Serum [facility] Ceruloplasmin [Mass/ volume] in Serum or Plasma [facility] Ceruloplasmin [Mass/ volume] in Serum or Plasma [facility] Complement C3 [Mass/ volume] in Serum or Plasma [facility] Complement C4 [Mass/ volume] in Serum or Plasma [facility] Comprehensive metabo lic 1999 panel - Serum or Plasma [facility] Comprehensive metabo lic 1999 panel - Serum or Plasma [facility] Comprehensive metabo lic 1999 panel - Serum or Plasma [facility] Copper measurement [facility] Cryoglobulin [Presen ce] in Serum [facility] CT Unspecified body region F [facility] DXA Skeletal system. axial Views for bone density [facility] Electrophoresis: [id number] [facility] Electrophoresis: [id number] [facility] Electrophoresis: beta-globulin [facility] Electrophoresis: gaby ma globulin [facility] FLOWCYTOMETRY NEOGENOMIC FLOWCYT OMETRY NEOGENOMIC Lab Routine 06/26/2024 10:44 AM [facility] [employer] Work Phone: Globulin [Mass/volum e] in Serum [facility] Glucose measurement estimated from glycated hemoglobin [facility] Hepatitis A virus an tibody, IgM type [facility] Hepatitis B core ant ibody measurement, IgM type [facility] Hepatitis B virus razo rface Ag [Presence] in Serum or Plasma by Immunoassay [facility] Hepatitis C virus Ig G Ab [Presence] in Serum or Plasma by Immunoassay [facility] Hepatitis C virus RN A [log units/volume] (viral load) in Serum or Plasma by TEJINDER with probe detection [facility] Hepatitis C virus RN A [Units/volume] (viral load) in Serum or Plasma by TEJINDER with probe detection [facility] Histone IgG Ab [Units/volume] in Serum by Immunoassay [facility] HIV 1+2 Ab+HIV1 p24 Ag [Presence] in Serum or Plasma by Immunoassay [facility] Homocysteine [Moles/ volume] in Serum or Plasma [facility] Homogenous nuclear A b pattern [Titer] in Serum [facility] Homogenous nuclear A b pattern [Titer] in Serum [facility] IgA [Mass/volume] in Serum or Plasma [facility] IgG [Mass/volume] in Serum or Plasma [facility] IgM [Mass/volume] in Serum or Plasma [facility] Immunofixation for Urine [facility] Sushma-1 extractable nuc lear Ab [Units/volume] in Serum [facility] Lead [Presence] in Blood [facility] Lutropin [Units/volu me] in Serum or Plasma [facility] Measurement of monoc lonal protein concentration [facility] Mercury [Mass/volume ] in Blood [facility] Methylmalonate [Moles/volume] in Serum or Plasma [facility] MG Breast - bilatera l Screening [facility] MG Breast - bilatera l Screening [facility] Mitochondria M2 IgG Ab [Units/volume] in Serum [facility] MR Cervical spine WO contrast [facility] MR Thoracic spine [facility] Myeloperoxidase Ab [Units/volume] in Serum by Immunoassay [facility] Neutrophil cytoplasm ic Ab.classic [Titer] in Serum by Immunofluorescence [facility] Nuclear Ab [Titer] in Serum [facility] Nuclear Ab [Titer] in Serum [facility] P-ANCA measurement [facility] Patient Education [facility] Work Phone: Patient referral [facility] Work Phone: Porphobilinogen [Mass/volume] in Urine [facility] Protein [Mass/volume ] in Serum or Plasma [facility] Protein [Mass/volume ] in Urine [facility] Proteinase 3 Ab [Units/volume] in Serum by Immunoassay [facility] Pyridoxine [Mass/vol ume] in Serum or Plasma [facility] Reagin Ab [Presence] in Serum by RPR [facility] Rheumatoid factor [Units/volume] in Serum or Plasma [facility] Ribosomal P Ab [Units/volume] in Serum [facility] Serum immunofixation [facility] Sjogrens syndrome-A extractable nuclear Ab [Units/volume] in Serum [facility] Sjogrens syndrome-B extractable nuclear Ab [Units/volume] in Serum [facility] Fritz extractable nu clear Ab [Units/volume] in Serum [facility] SUPERFICIAL WOUND CU [place] [place] [facility] Work Phone: Comment on above: Ordered: 11/16/2024 Thallium [Mass/volum e] in Serum or Plasma [facility] West Nile virus IgG Ab [Presence] in Serum by Immunoassay [facility] West Nile virus IgM Ab [Presence] in Serum by Immunoassay [facility] Immunizations Immunization Date Immunization Notes Care Provider Radha pruitt 04-02-2002 measles, mumps and rubella virus vaccine Sandra Keita Other [facility] NEGATED: Highlighted row has not occurred!03-04-2023 Flu Shot - Documentation Purposes Only Sandra Keita Other [employer] Other NEGATED: Highlighted row has not occurred!04-16-2022 influenza, seasonal, injectable Patient Objection Sandra Keita Other [facility] Payers Date Payer Category Payer Medicare [id number] 2024 Self-pay [id number] 2023 Medicare [id number] 2023 Dual Eligibility Medicare/Medicaid Organization [id number] 2023 Private Health Insurance [facility] DUAL COMPLETE [facility] DUAL COMPLETE [id number] 2023-Present [address] [address] [place] [address] [id number] .[id number] 2022 Medicare [id number] 2.16.840.1.340879.19 2022 Medicare [id number] 1.13.693.2 .[id number] 2022 Medicare (Managed Care) [facility] MEDIC[facility] [id number] 2022 Private Health Insurance [id number] 2021 Medicaid [id number] 2021 [facility] [id number] 2.16.840.1.996457.19 2017 Unknown [id number] 1959 Medicaid [id number] 1957 Unknown [id number] 2.16.840.1.042148.3.579.2 .7 1957 Unknown [id number] 2.16.840.1.598898.3.579.2 .1957 Unknown [id number] 2.16.840.1.398711.3.579.2 .72 1957 Unknown [id number] 2.16.840.1.679851.3.579.2 .72 1957 Unknown [id number] 2.16.840.1.473095.3.579.2 .727 1957 Unknown [id number] 2.16.840.1.949154.3.579.2 .196 1957 Unknown [id number] 2.16.840.1.610352.3.579.2 .196 1957 Unknown [id number] 2.16.840.1.558133.3.579.2 .1243 1957 Unknown [id number] 2.16.840.1.503864.3.579.2 .1243 1957 Unknown [id number] 2.16840.1.661492.3.579.2 .1243 1957 Unknown [id number] 2.16840.1.774570.3.579.2 .1258 1957 Unknown [id number] 2.840.1.837509.3.579.2 .1258 1957 Unknown [id number] 2.840.1.433817.3.579.2 .1258 1957 Unknown [id number] 2.840.1.932917.3.579.2 .1258 1957 Unknown [id number] 2.840.1.749190.3.579.2 .1258 1957 Unknown [id number] 2.840.1.901911.3.579.2 .1258 1957 Unknown [id number] 2.840.1.344996.3.579.2 .1258 1957 Unknown [id number] 2.16840.1.427327.3.579.2 .1258 1957 Unknown [id number] 2.840.1.271220.3.579.2 .1258 1957 Unknown [id number] 2.16.840.1.157147.3.579.2 .1258 1957 Unknown [id number] 2.16.840.1.933616.3.579.2 .1258 1957 Unknown [id number] 2.16840.1.854147.3.579.2 .1259 1957 Unknown [id number] 2.16.840.1.340481.3.579.2 .1259 1957 Unknown [id number] 2.16.840.1.394550.3.579.2 .1259 Medicare [id number] 2.16.840.1.217798.19 Unknown [id number] 2.16.840.1.470031.3.579.2 .531 Unknown [id number] 2.16.840.1.197499.3.579.2 .531 Unknown [id number] 2.16.840.1.087885.3.579.2 .531 Unknown [id number] 2.16.840.1.238358.3.579.2 .531 Unknown [id number] 2.16.840.1.037151.3.579.2 .531 Unknown [id number] 2.16.840.1.963335.3.579.2 .531 Unknown [id number] 2.16.840.1.120129.3.579.2 .531 Unknown [id number] 2.16.840.1.248510.3.579.2 .531 Unknown [id number] 2.16.840.1.071494.3.579.2 .531 Unknown [id number] 2.16.840.1.436181.3.579.2 .531 Unknown [id number] 2.16.840.1.838232.3.579.2 .531 Social History Date Type Detail Facility Unknown if ever smoked [employer] Other Start: 10-07-2023 End: 11-23-2024 Sex Assigned At [employer] Other Start: 12-17-2021 End: 09-10-2024 Tobacco smoking status VAIS Smoker (finding) [facility] Start: 1955 Sex Assigned At Female F [facility] Start: 04-29-1975 End: 10-07-2023 Tobacco smoking status NHIS Smokes tobacco daily [facility] Start: 04-29-1975 History of tobacco use Cigarette Smo ker [facility] Work Phone: Start: 10-07-2023 Tobacco use and exposure Smokeless tobacco non-user [facility] Work Phone: Start: 10-07-2023 End: 11-23-2024 Alcoholic beverage intake Lifetime non-drinker (finding) [facility] Work Phone: Start: 10-07-2023 End: 11-23-2024 History of Social function [facility] Work Phone: Start: 1955 Sex assigned at Not on file [facility] Work Phone: Start: 09-27-2023 End: 06-26-2024 Exposure to SARS-CoV-2 (event) Not sure [facility] Start: 01-29-2023 Tobacco use and exposure User of smokeless tobacco [facility] Start: 01-29-2023 Tobacco Comment Smokes 11-20 c igs per day [facility] Start: 01-09-2023 Alcohol Comment caffeine intak e: occasional [facility] Start: 04-29-2024 End: 10-01-2024 Sex Female (finding) [facility] Start: 11-28-2022 Sex Female [facility] Medical Equipment Procedure Code Equipment Code [...] Facility 04-30-2024 Functional status Patient at Baseline [facility] Work Phone: 11-12-2023 Functional status Patient at Baseline [facility] Work Phone: 09-14-2023 Functional status Patient at Baseline [facility] Work Phone: 12-13-2021 Functional status Patient at Baseline [facility] Work Phone: Mental Status Date Assessment Result Facility 04-30-2024 Cognitive function Cognitive Sta tus Patient at Baseline [facility] Work Phone: 11-12-2023 Cognitive function Cognitive Sta tus Patient at Baseline [facility] Work Phone: 09-14-2023 Cognitive function Cognitive Sta tus Patient at Baseline [facility] Work Phone: 12-13-2021 Cognitive function Cognitive Sta tus Patient at Baseline [facility] Work Phone: Clinical Notes 02-27-2021 to 01-19-2025 Oz Kincaid MD - 01/19/2025 4:00 PM Speedy Kincaid MD - 01/19/2025 4:00 PM Speedy Kincaid MD - 01/19/2025 4:00 PM Speedy Kincaid MD - 01/19/2025 4:00 PM Speedy Kincaid MD - 01/19/2025 4:00 PM EDT Note Date & Type Note Facility 01-19-2025 History of Present illness Narrative Associated Problem(s): Weakness of both lower extremities Exam in 6 mo. Pt to call fi sx worsen quickly. Associated Problem(s): Carpal tunnel syndrome, bilateral --- causing hand weakness R29.898. (Continue splints B nightly.) Associated Problem(s): Cognitive decline (Continue current regimen.) Associated Problem(s): Cervical paraspinal muscle spasm (Continue current regimen, home PT.) Associated Problem(s): B12 deficiency (Continue B12 SL.) Associated Problem(s): Guyon syndrome, unspecified laterality (Continue avoiding compression.) Images from the original note were not included. Outpatient Progress Note Patient: Taey Gay Dept: Neurology : 1955 Appt Date: [...] RADIC L L5 S1 . (DM . +BEATRICE) Tx PGB [...] parking lot -> medical office). Imaging MR Dipeshs (11/2023, [facility]) - HNP T12-L1 mild ... errol L5-S1 modB . . . . (11/2023, [facility]) - HNP T12-L1 mild ... canal sten L2-3 mod ... errol sten L2-3 modB L4-5-S1 modB US LE (12/2016, [facility]) - atherosclerosis, nl PVR. Testing [facility] (11/2024) - acute L L5-S1 + PN sev . . . . (11/2023) - acute L S1 (nEMG) + PN pattern signif worse . . . . (03/2017, [facility]) - PN pattern Labs - Q94=479/15/116/>22.3, was 359/16.7H/328/>22.3 ... A1c=8.4, was 10.4(!) ,,, [...] - end of Mar pt adm to [facility] for gen weakness & slurred speech, resolved [...] brain (03/2024) - never done during adm [facility] due to metal . . . . (10/2023, [facility]) - atrophy age-appropriate & ^T2/FLAIR CTA head (03/2024, [facility]) - no stenoses CTA neck(03/2024, [facility]) - < 20% B Testing (q.v.) ... [...] Motor - TA 5-L, unchanged: ___, orig: Hydraulic Lift Driver 4B ... APB 4R 4+L Sens - [...] 5' 7 Wt 195 lb BMI 30.54 kg/m Smoking Status Every Day BSA 2.05 m Review of Systems - . Const: [...] Take with meals. Continuous Blood Gluc Sensor (Nuro Pharmayle Brent 14 Day Sensor) [facility] [place] apply 1 SENSOR as directed every 14 days use with DEVICE to MONIT... (REFER TO PRESCRIPTION NOTES). cyanocobalamin (Vitamin B-12) 2500 MCG tablet Docusate Sodium (DSS) 100 MG capsule Take 100 mg by mouth in the morning and 100 mg in the evening. donepezil (Aricept) 10 MG tablet 2 tabs QAM 60 tablet 5 Droplet Pen Sully 32G X 4 MM [facility] [place] use 1 PEN NEEDLE to inject MEDICATION [...] encounter medications on file as of 01/19/2025. Oz Kincaid M.D. [facility] Neurology ? [address] ? [place], [place] [address] ? ? fax Neurology ? Clinical Neurophysiology ? Epilepsy ? Sleep Disorders ? Clinical Informatics documented in this encounter [facility] 12-30-2024 History of Present illness Narrative Chief [...] discussion and plan. documented in this encounter [facility] Work Phone: 12-30-2024 Instructions Edilma Menezes LPN [...] be sent through Care Everywhere.Heart Healthy Diet (Japanese)Quitting smoking (Japanese)documented in this encounter [facility] Work Phone: 12-18-2024 History of Present illness Narrative [facility] Patient: Taye Gay [address], [address] , Sex: 1955, Female [place], [place] [address] Height: 168 cm Ref Phys: Debbie Kincaid [...] Doub=doublet; Fasc=fasciculation; FFE=full for effort; Fib=fibrillation; Myokym=myokymia; [place]=myotonic potential; N,0=normal; NR=no response; Polyph=polyphasia; Pos=positive [sharp] wave; RFU=rapidly firing units; Serr=serrated potential (2<phases<5); W&W=waxing and waning pattern INTERPRETATION: This study reveals [facility] evidence of a chronic, neuropathic, axonal, sensory > motor process affecting all lower extremity nerves tested. Needle examination demonstrates a gcdtkd-yj-qoxutdwc gradient that is most suggestive of peripheral [...] of any radiculopathy. Oz Kincaid M.D. Diplomate, [place] [employer] and Neu[employer] (neurology, epilepsy, sleep medicine) Diplomate, [place] Board of Clinical Neurophysiology Diplomate, [place] [employer] of Preventive Medicine (clinical informatics) . documented in this encounter [facility] 12-15-2024 Evaluation note Diagnosis Onset Date Resolution [...] foot acute November 1:46pm BMI 32.0-32.9,adult acute Dece mb2024 1:23pm Dietary counseling and surveillance acute January 05 2 025 1:23pm Hyperlipidemia acute January 05, 2025 1:23pm Hypertension acute December 1:23pm Peripheral neuropathy acute Dec 1:23pm Type 2 diabetes mellitus acute January 05, 2025 1:23pm [facility] B 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 Work Phone: 1(520) 913-275708-19-2025 Evaluation note* Diagnosis Onset Date Resolution Status [...] acute December 2:19pm Lesion of spleen acute Septembe r 2024 2:19pm [facility] Work Phone: 1(763) 518-204008-15-2025 History of Present illness Narrative* Oz Kincaid MD - 12/11/2024 1:15 PM EDT [facility] Patient: Taye Gay [address], [address] , Sex: 1955, Female [place], [place] [address] Height: 168 cm Ref Phys: Debbie Kincaid [...] Doub=doublet; Fasc=fasciculation; FFE=full for effort; Fib=fibrillation; Myokym=myokymia; [place]=myotonic potential; N,0=normal; NR=no response; Polyph=polyphasia; Pos=positive [sharp] [...] -- 36 40 Oz Kincaid M.D. Diplomate, [place] [employer] Psychiat[employer] and Neurology (neurology, epilepsy, sleep medicine) Diplomate, [place] [employer] of Clinical Neurophysiology Diplomate, [place] [employer] Preventive Medicine (clinical informatics) . documented in [facility] encounterC[facility] [id number] History of Present illness Narrative* NADIA Kim - 11/23/2024 2:45 PM EDT Images from [...] if she does decline. documented in this encounterCarondelet [id number] History of Present illness Narrative* Karl Fritz [...] to their surgery date. documented in this [facility]06-25-2025 Telephone encounter Note* Telephone Encounter - Cali Duque - 10/21/2024 2:44 PM EDT Patient canceled 10/23/24 EMG on 10/20/24 due to an appointment conflict. [id number] Miscellaneous Notes* Telephone Encounter - Cali Duque - 10/21/2024 2:44 PM EDT Patient canceled 10/23/24 EMG on 10/20/24 due to an appointment conflict. documented in this [facility]06-24-2025 History of Present illness Narrative* Karl Fritz [...] with ulceration and/or pain. documented in this encounterCarondelet HealthQhioienbwm97-02-7742 Telephone encounter Note* Telephone Encounter - Cali Duque - 10/07/2024 3:49 PM EDT Received call from Raine with [facility] they are happy to take her as a client. [facility] HealthMwplksozbs74-14-3848 Miscellaneous Notes* Telephone Encounter - Cali Duque - 10/07/2024 3:49 PM EDT [facility] are happy to take her as a client. documented in this encounterCarondelet HealthMewrbkhtlw01-42-3723 History of Present illness Narrative* Oz Kincaid [...] Priti Dept: Neurology : 1955 Appt Date: 10/06/2024 [...] 6 weeks (around 11/17/2024), or 6-8 w PROTECTIVE OFFICER; after ENMGs. History of Present Illness, Associated [...] and fingertips; restlessness; gait ataxia. Imaging MR Keller (11/2023, [facility]) - HNP T12-L1 mild ... canal sten L2-3 mod ... errol sten L2-3 modB L4-5-S1 modB US LE (12/2016, [facility]) - atherosclerosis, nl PVR. Testing [facility] (11/2023) - acute L S1 (nEMG) + PN pattern signif worse . . . . (03/2017, [facility]) - PN pattern Labs - K85=359/15/116/>22.3, was 359/16.7H/328/>22.3 ... A1c=8.4, was 10.4(!) ,,, [...] - end of Mar pt adm to [facility] for gen weakness & slurred speech, resolved [...] MR brain (03/2024) - never done during [facility] due to metal . . . . (10/2023, [facility]) - atrophy age-appropriate & ^T2/FLAIR CTA head (03/2024, [facility]) - no stenoses CTA neck(03/2024, [facility]) - < 20% B Testing (q.v.) ... [...] ___, unchanged: ___, orig: ___ Motor - Hydraulic Lift Driver 4-R 4L ... APB 4B ... LEs - 4+ throughout (worse), somewhat antalgic, unchanged: ___, orig: Hydraulic Lift Driver 4B ... APB 4R 4+L Sens - [...] smear of cervix hpv positive COVID-19 Diabetes ([facility]) Fibromyalgia High cholesterol ([facility]) History of medical problems ulcer HTN (hypertension) ([facility]) Neuropathy Rheumatoid arthritis ([facility]) Scarlet fever Stomach ulcer Tonsillitis Past Surgical [...] Take with meals. Continuous Blood Gluc Sensor (TrivnetStyle Brent 14 Day Sensor) [facility] [place] apply 1 SENSOR as directed every 14 days use with DEVICE to MONIT... (REFER TO PRESCRIPTION NOTES). cyanocobalamin (Vitamin B-12) 2500 MCG tablet Docusate Sodium (DSS) 100 MG capsule Take 100 mg by mouth in the morning and 100 mg in the evening. donepezil (Aricept) 10 MG tablet 2 tabs QAM 60 tablet 5 Droplet Pen Sully 32G X 4 MM [facility] [place] use 1 PEN NEEDLE to inject MEDICATION [...] ? [address] ? [place], [place] [address] ? ? fax Neurology ? Clinical Neurophysiology ? Epilepsy ? Sleep Disorders ? Clinical Informatics documented in this encounterCarondelet HealthFnbifotelg21-11-9112 Evaluation note* Diagnosis Onset Date Resolution Status [...] Depression acute December 15, 2 025 1:46pm [facility] Work Phone: 1(553) 573-108306-05-2025 Evaluation note* Diagnosis Onset Date Resolution Status [...] 15, 2024 1:46pm Depression acute December 15, 1:46pm Diabetes mellitus with neuropathy acute December [...] 1:46pm Wound of foot acute November 1:46pm [facility] Work Phone: 1(429) 918-714605-15-2025 [place] [address] EGD Procedure Note Signed Patient: Taye Gay MR#: [id number] : 1955 Acct:[id number] Age/Sex: 68 / F Adm Date: 5 Loc: Room: Type: [facility] Attending Dr: Manjit Gleason MD [...] MD 09/10/24 1241 Signed By: 09/10/24 1245 [facility]05-15-2025 History and physical [address] [address] Gastroenterology H&P Signed Patient: Taye Gay MR#: [id number] : 1955 Acct:[id number] Age/Sex: 68 / F Adm Date: 5 Loc: Room: Type: [facility] Attending Dr: Manjit Gleason MD [...] MD 09/10/24 1233 Signed By: 09/10/24 1241 [facility]04-29-2025 Chief complaint+Reason for visit Narrative* Chief Complaint [...] Secondary polycythemia October 01, 2024 2: 34pm [facility] Work Phone: 1([phone]) 268-260404-24-2025 Evaluation note* Diagnosis Onset Date Resolution Status [...] 2024 2:34pm Secondary polycythemia acute 2024 2:34pm [facility] Work Phone: 1([phone]) 266-357703-26-2025 Evaluation note* Diagnosis Onset Date Resolution Status [...] 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 A pril 2024 9:57am [facility] Work Phone: 1(771) 582-546603-26-2025 Evaluation note* Diagnosis Onset Date Resolution Status [...] 1:31pm Peripheral neuropathy acute Apr 2024 1:31pm [facility] Work Phone: 1(854) 660-416403-26-2025 Evaluation note* Diagnosis Onset Date Resolution Status [...] 1:31pm Lumbar spondylosis acute September 072024 11:01am [facility] Work Phone: 1([phone] 820-472403-26-2025 Evaluation note* Diagnosis Onset Date Resolution Status [...] October 01, 2024 2:34pm Hypertension acute October 01, 2:34pm Hypothyroid acute October 01 2:34pm Intolerance to BiPAP/CPAP acute October 01, 2024 2:34pm Major depression, chronic acute October 01, 2024 2:34pm [place] (obstructive sleep apnea) acute October 01, 2024 2:34pm Secondary polycythemia acute 2024 2:34pm [facility] Work Phone: 1(762) 813-883303-25-2025 History of Present illness Narrative* Oz Kincaid MD - 07/21/2024 2:45 PM EDTAssociated Problem(s): Cognitive decline (Continue current regimen.) [facility] records - neuro consults, EEG, MR, carotids, [...] & Plan Cognitive decline (Continue current regimen.) [facility] records - neuro consults, EEG, MR, carotids, [...] restlessness; gait ataxia. Imaging MR L-s (11/2023, [facility]) - HNP T12-L1 mild; canal sten L2-3 mod; errol sten L2-3 modB L4-5-S1 modB US LE (12/2016, [facility]) - atherosclerosis, nl PVR. Testing [facility] (11/2023) - acute L S1 (nEMG) + PN pattern signif worse . . . . (03/2017, [facility]) - PN pattern Labs - U03=074/15/116/>22.3, was 359/16.7H/328/>22.3 ... A1c=8.4, was 10.4(!) ,,, [...] now that pt is off nortrip. Adm [facility] ~[place] for possible TIA. Walking drunk , Tim. 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 Imaging MR brain (10/2023, [facility]) - not available via [place] - atrophy [...] ___, orig: ___ Motor - ___, unchanged: Hydraulic Lift Driver 4B ... APB 4R 4+L, orig: ___ [...] Take with meals. Continuous Blood Gluc Sensor (BuildOut Brent 14 Day Sensor) [facility] [place] apply 1 SENSOR as directed every 14 days use with DEVICE to MONIT... (REFER TO PRESCRIPTION NOTES). cyanocobalamin (Vitamin B-12) 2500 MCG tablet Docusate Sodium (DSS) 100 MG capsule Take 100 mg by mouth in the morning and 100 mg in the evening. donepezil (Aricept) 10 MG tablet Up to 2 QAM if tolerated 60 tablet 3 Droplet Pen Sully 32G X 4 MM [facility] [place] use 1 PEN NEEDLE to inject MEDICATION [...] Oz Kincaid M.D. [facility] ? [address] ? [place], [place] [address] ? ? fax Neurology ? Clinical Neurophysiology ? Epilepsy ? Sleep Disorders ? Clinical Informatics documented in this encounterCarondelet HealthPxljqcmtiw56-37-6632 History of Present illness Narrative* Roland Faust [...] signing my name below, I, Melina Velázquez LPN, Scribe attest that this documentation has [...] exam, discussion and plan. documented in this [facility] Work Phone: 1([phone]) 336-534502-28-2025 Instructions* Patient Instructions* Melina Lee LPN - [...] 6 months with ekg [facility] Work Phone: 1([phone] 364-105601-21-2025 Telephone encounter Note* Telephone Encounter - Cali Duque - 05/19/2024 11:20 AM EST Daughter same day canceled same day canceled today's appointment due to overslept. RS for 06/02/24 [facility] [id number] Miscellaneous Notes* Telephone Encounter - Cali Duque - 05/19/2024 11:20 AM EST Daughter same day canceled same day canceled today's appointment due to overslept. RS for 06/02/24 documented in this encounterCarondelet HealthYbxzcoutsv48-95-2416 [place] [address] Neurology Progress Note Signed with Addenda Patient: Taye Gay MR#: [id number] : 1955 Acct:[id number] Age/Sex: 68 / F Adm Date: 4 Loc: Room: [address] [place] [address] Type: ADM IN Attending Dr: Priscilla Lang MD Copies to: ~ ADDENDUM1 Patient has refused to remove her nail venezuelan for MRI. Unable to confirm whether or [...] may be metabolic in nature and not passenger relations representative necessarily of transient ischemia or [...] DO 5 0608 Signed By: 04/30/24 0708 [facility]01-02-2025 Discharge summary Author Priscilla Lang [facility] Note Date/Time April 30, 2024 10 :28am [facility] [address] [place] [address] Discharge Summary Signed Patient: Taye Gay MR#: [id number] : 1955 Acct:[id number] Age/Sex: 68 / F Adm Date: 4 Loc: 3T Room: [address] [place] [address]: Priscilla Lang MD Copies to: [...] taking multiple medications that could potentially cause RN EMERGENCY side effect and toxic encephalopathy. Diagnosis is [...] polypharmacy regimen to reduce her risk of RN EMERGENCY side effects or drug?drug interaction. At this [...] ask her primary care doctor to obtain [facility] record entirely to address [...] ask your primary care provider to obtain [facility] records entirely to follow up on all [...] or having drug?drug interaction. Discharging you from [facility] does not mean that your medical care [...] constipation) (DME) pen needle, diabetic [Sure-Fine Pen Sully] .Route lidocaine 5 % ointment 1 applic [...] % (Auto) 63.5, Lymph % (Auto) 24.9, Calvert % (Auto) 8.3, Eos % (Auto) 2.9, Baso % (Auto) 0.4, Nucleat RBC Rel Count 0.0, Neut # (Auto) 4.6, Lymph # (Auto) 1.8, Calvert # (Auto) 0.6, Eos # (Auto) 0.2, [...] <Electronically signed by Priscilla Lang MD> 04/30/[address] [place] [address] Work Phone: 1(887) 570-475901-02-2025 [place] [address] Discharge Summary Signed Patient: Taye Gay MR#: [id number] : 1955 Acct:[id number] Age/Sex: 68 / F Adm Date: 4 Loc: Room: [address] [place] [address]: Priscilla Lang MD Copies to: [...] taking multiple medications that could potentially cause RN EMERGENCY side effect and toxic encephalopathy. Diagnosis is [...] polypharmacy regimen to reduce her risk of RN EMERGENCY side effects or drug?drug interaction.At this time, [...] ask her primary care doctor to obtain [facility] record entirely to address [...] ask your primary care provider to obtain [facility] records entirely to follow up on all [...] or having drug?drug interaction. Discharging you from [facility] does not mean that your medical care [...] constipation) (DME) pen needle, diabetic [Sure-Fine Pen Sully] .Route lidocaine 5 % ointment 1 applic [...] % (Auto) 63.5, Lymph % (Auto) 24.9, Calvert % (Auto) 8.3, Eos % (Auto) 2.9, Baso % (Auto) 0.4, Nucleat RBC Rel Count 0.0, Neut # (Auto) 4.6, Lymph # (Auto) 1.8, Calvert # (Auto) 0.6, Eos # (Auto) 0.2, [...] MD 04/30/24 1016 Signed By: 04/30/24 1028 [facility]01-01-2025 Consult note Author Lit Clark [facility] Note Date/Time April 29, 2024 11 :07am [facility] [address] [place] [address] Neurology Consult Note Signed Patient: Taye Gay MR#: [id number] : 1955 Acct:[id number] Age/Sex: 68 / F Adm Date: 4 Loc: Room: [address] [place] [address] Type: ADM IN Attending Dr: Priscilla Lang MD Copies to: DO Sandra Garrido DO Rafik Massouh, MD~ HPI Consult Date: 04/29/24 Compo Caster: Lit Clark DO Reason for consult: Slurred [...] noted below or in HPI [facility] Medical History BMI 32.0-32.9,adult Abnormal thyroid blood [...] (Stool Softener) 100 mg PO DAILY PRN clrumhqotwhf42/14/24 [History Confirmed 04/28/24] multivitamin 1 tab PO DAILY 06/12/23 [History Confirmed 04/28/24] pen needle, diabetic [Sure-Fine Pen Sully] 06/12/23 [History Confirmed 04/28/24] metformin 500 mg [...] 60 18 114/74 92 L Room Air 01/01/25 08:00 04/29/24 08:00 04/29/24 08:00 04/29/24 08:00 [...] Oz Bowling M.D.04/28/2024 9:46 PM Dictation Location: [place] [address] 04/28/24 19:44 IMPRESSION: No acute intracranial pathology. No evidence of focal stenosis, aneurysmal dilatation, dissection or occlusion. Impression dictated by: Oz Bowling M.D.04/28/2024 9:44 PM Dictation Location: [place] [address] Assessment/Plan (1) Atrial fibrillation: Qualifiers: Atrial fibrillation [...] may be metabolic in nature and not passenger relations representative necessarily of transient ischemia or [...] follow. Documented By: Lit Clark DO 5 1822 Signed By: <Electronically signed by Lit Clark DO> 04/29/24 6263 [facility] Work Phone: 1(884) 466-393401-01-2025 Progress note Author Priscilla Lang [facility] Note Date/Time April 29, 2024 11 :02am [facility] [address] [place] [address] Hospitalist Progress Note Signed Patient: Taye Gay MR#: [id number] : 1955 Acct:[id number] Age/Sex: 68 / F Adm Date: 4 Loc: Room: [address] [place] [address] Type: ADM IN Attending Dr: Priscilla Lang [...] presence of WBCs, RBCs and rare yeast. Evyjqaueline provided 3 to 24 mg of aspirin [...] of dementia, possible Alzheimer's dementia -continue home eyprhnzgr58 mg twice daily and donepezil 20 mg [...] signed by Priscilla Lang MD> 04/29/24 1101 [facility] Work Phone: 1(863) 767-897301-01-2025 [place] [address] Neurology Consult Note Signed Patient: Taye Gay MR#: [id number] : 1955 Acct:[id number] Age/Sex: 68 / F Adm Date: 4 Loc: Room: [address] [place] [address] Type: ADM IN Attending Dr: Priscilla Lang MD Copies to: DO Sandra Garrido DO Rafik Massouh, MD~ HPI Consult Date: 04/29/24 Compo Caster: Lit Clark DO Reason for consult: Slurred [...] noted below or in HPI [facility] Medical History BMI 32.0-32.9,adult Abnormal thyroid blood [...] Confirmed 04/28/24] pen needle, diabetic [Sure-Fine Pen Sully] 06/12/23 [History Confirmed 04/28/24] metformin 500 mg [...] Oz Bowling M.D.04/28/2024 9:46 PM Dictation Location: [facility] 04/28/24 19:44 IMPRESSION: No acute intracranial pathology. No evidence of focal stenosis, aneurysmal dilatation, dissection or occlusion. Impression dictated by: Oz Bowling M.D.04/28/2024 9:44 PM Dictation Location: [facility]--17 Assessment/Plan (1) Atrial fibrillation: Qualifiers: Atrial [...] may be metabolic in nature and not passenger relations representative necessarily of transient ischemia or [...] DO 5 0858 Signed By: 04/29/24 1107 [facility]01-01-2025 [place] [address] Hospitalist Progress Note Signed Patient: Taye Gay MR#: [id number] : 1955 Acct:[id number] Age/Sex: 68 / F Adm Date: 4 Loc: Room: [address] [place] [address] Type: ADM IN Attending Dr: Priscilla Lang [...] of dementia, possible Alzheimer's dementia -continue home nxrymfmvy35 mg twice daily and donepezil 20 mg [...] MD 04/29/24 1059 Signed By: 04/29/24 1102 [facility]01-01-2025 History and physical note Author Jori Hearn [facility] Note Date/Time April 29, 2024 6: 39am [facility] [address] [place] [address] Hospitalist H&P Signed Patient: Taye Gay MR#: [id number] : 1955 Acct:[id number] Age/Sex: 68 / F Adm Date: 4 Loc: Room: [address] [place] [address] Type: ADM IN Attending Dr: Jori Hearn [...] of dementia, possible Alzheimer's dementia -continue home ogqixcgcx97 mg twice daily and donepezil 20 mg daily 12. Atrial fibrillation - continue Eliquis 5 mg twice daily for anticoagulationand carvedilol 12.5 mg twice daily. EKG in ER shows NSR 13. Hypoxia - no respiratory distress or cardiopulmonary complaints to accompany this. Will monitor telemetry and address as needed [facility] Medical History BMI 32.0-32.9,adult Abnormal thyroid blood [...] (Stool Softener) 100 mg PO DAILY PRN pmazynggnday84/14/24 [History Confirmed 04/28/24] multivitamin 1 tab PO DAILY 06/12/23 [History Confirmed 04/28/24] pen needle, diabetic [Sure-Fine Pen Sully] 06/12/23 [History Confirmed 04/28/24] metformin 500 mg [...] % (Auto) 24.6 % (.) 04/28/24 19:54 Calvert % (Auto) 7.6 % (.) 04/28/24 19:54 Eos % (Auto) 2.7 % (.) 04/28/24 19:54 Baso % (Auto) 1.1 % (.) 04/28/24 19:54 Nucleat RBC Rel Count 0.2 /100 WBC (0-0.5) 04/28/24 19:54 Neut # (Auto) 6.5 x10E3/uL (1.8-7.7) 04/28/24 19:54 Lymph # (Auto) 2.5 x10E3/uL (1.00-4.8) 04/28/24 19:54 Calvert # (Auto) 0.8 x10E3/uL (0.0-0.8) 04/28/24 19:54 [...] pH 5.5 (5.0-9.0) 04/28/24 22:02 Ur Specific Crowder 1.038 (1.001-1.030) H 04/28/24 22:02 Urine Protein [...] signed by Jori Hearn DO> 04/29/24 0639 [facility] Work Phone: 1(160) 112-956801-01-2025 History and physical [place] [id number] Hospitalist H&P Signed Patient: Taye Gay MR#: [id number] : 1955 Acct:[id number] Age/Sex: 68 / F Adm Date: 4 Loc: 3T Room: [address] [place] [address] Type: ADM IN Attending Dr: Jori Hearn [...] of dementia, possible Alzheimer's dementia -continue home eugtlbjaz25 mg twice daily and donepezil 20 mg daily 12. Atrial fibrillation - continue Eliquis 5 mg twice daily for anticoagulationand carvedilol 12.5 mg twice daily. EKG in ER shows NSR 13. Hypoxia - no respiratory distress or cardiopulmonary complaints to accompany this. Will monitortelemetry and address as needed [facility] Medical History BMI 32.0-32.9,adult Abnormal thyroid blood [...] Father Heart disease History of stroke [facility]: Diagnosed with Stroke Cancer throat [...] (Stool Softener) 100 mg PO DAILY PRN cfwcxifywbjp41/14/24 [History Confirmed 04/28/24] multivitamin 1 tab PO DAILY 06/12/23 [History Confirmed 04/28/24] pen needle, diabetic [Sure-Fine Pen Sully] 06/12/23 [History Confirmed 04/28/24] metformin 500 mg [...] #30 caps 04/20/24 [Rx Confirmed 04/28/24] Ashley Merida U-300 Insulin 300 unit/mL (1.5 mL) subcutaneous [...] % (Auto) 24.6 % (.) 04/28/24 19:54 Calvert % (Auto) 7.6 % (.) 04/28/24 19:54 Eos % (Auto) 2.7 % (.) 04/28/24 19:54 Baso % (Auto) 1.1 % (.) 04/28/24 19:54 Nucleat RBC Rel Count 0.2 /100 WBC (0-0.5) 04/28/24 19:54 Neut # (Auto) 6.5 x10E3/uL (1.8-7.7) 04/28/24 19:54 Lymph # (Auto) 2.5 x10E3/uL (1.00-4.8) 04/28/24 19:54 Calvert # (Auto) 0.8 x10E3/uL (0.0-0.8) 04/28/24 19:54 [...] pH 5.5 (5.0-9.0) 04/28/24 22:02 Ur Specific Crowder 1.038 (1.001-1.030) H 04/28/24 22:02 Urine Protein [...] DO 04/28/24 57 Signed By: 04/29/24 0639 [facility]12-31-2024 Radiology Diagnostic study note [facility] [address] CT Scan Report Signed Patient: Taye Gay MR#: [id number] : 1955 Acct:[id number] Age/Sex: 68 / F ADM Date: 4 Loc: ER Room: Type: [facility] ER Attending Dr: Copies to: Wesley Villafuerte PA-C~ Ordering Provider: Wesley Villafuerte PA-C Date of Service: 04/28/24 CT/CT angio head: weakness ([id number]) CT/CT angio neck: weakness ([id number]) CT/CT head/brain wo con: weakness CT head/brain [...] Oz Bowling M.D.04/28/2024 9:44 PM Dictation Location: [place] [address] Transcribed By: [facility] 04/28/242143 Dictated By: Oz Bowling II, MD 04/28/242129 Signed By: 04/28/242143 [facility] Work Phone: 1(290) 931-624612-31-2024 Evaluation note* Diagnosis Onset Date Resolution Status [...] attack) acut e May 07, 2024 1:02pm [facility] Work Phone: 1(814) 413-205712-31-2024 Evaluation note* Diagnosis Onset Date Resolution Status [...] disease) acut e July 22, 2024 10:54am [facility] Work Phone: 1(979) 596-265712-17-2024 Evaluation note* Diagnosis Onset Date Resolution Status [...] attack) acut e April 28, 2024 10:38pm [facility] Work Phone: 1(273) 185-241412-17-2024 Evaluation note* Diagnosis Onset Date Resolution Status [...] attack) acut e April 28, 2024 10:38pm [facility] Work Phone: 1(552) 178-181312-17-2024 Evaluation note* Diagnosis Onset Date Resolution Status [...] nicotine dependence acute May 07, 2024 1:02pm [facility] Work Phone: 1([phone]) 314-929212-17-2024 Evaluation note* Diagnosis Onset Date Resolution Status [...] D ec2023 11:14am Atrial fibrillation acute Decem vivek 2023 [...] attack) acut e May 07, 2024 1:02pm [facility] Work Phone: 1(522) 314-738812-11-2024 History of Present illness Narrative* Karl Fritz DPM - 04/08/2024 4:00 PM EST Images from the original note were not included. HPI: Patient presents today complaining of an ulcer on the lateral 5th right foot. Patient has pain withwalking and standing due to this lesion. Patient has tried [facility] for treatment, x-ray, antibiotic, (not taking [...] 7. RTC: 2 weeks. 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 History of Present Illness, Associated Treatments and [...] Restlessness well controlled. Imaging MR L-s (11/2023, [facility]) - HNP T12-L1 mild; canal sten L2-3 mod; errol sten L2-3 modB L4-5-S1 modB US LE (12/2016, [facility]) - atherosclerosis, nl PVR. Testing [facility] (11/2023) - acute L S1 (nEMG) + PN pattern signif worse . . . . (03/2017, [place] ) - PN pattern Labs - W63=648/15/116/>22.3, was 359/16.7H/328/>22.3 ... A1c=8.4, was 10.4(!) ,,, [...] nortrip. Onset Semeiology Imaging MR brain (10/2023, [facility]) - not available via [facility] - atrophy age- appropriate & [...] ___, orig: ___ Motor - ___, unchanged: Hydraulic Lift Driver 4B ... APB 4R 4+L, orig: ___ [...] positive COVID-19 Diabetes (CMS/HCC) Fibromyalgia High cholesterol ([facility]) History of medical problems ulcer HTN (hypertension) [...] in the morning. Continuous Blood Gluc Sensor (Nuro Pharmayle Brent 14 Day Sensor) [facility] [place] [place] apply 1 SENSOR as directed every 14 [...] if tolerated 60 tablet 3 Droplet Pen Sully 32G X 4 MM [facility] [place] [place] use 1 PEN NEEDLE to inject MEDICATION [...] capsule by mouth at bedtime if needed Totello SoloStar 300 UNIT/ML injection inject 20 units subcutaneously as directed [DISCONTINUED] metoprolol succinate XL (Toprol-XL) 50 MG 24 hr tablet Take 50 mg by mouth in the morning and 50 mg in the evening. No facility-administered encounter medications on file as of 04/07/2024. Oz Kincaid M.D. [facility] ? [address] ? [place], [place] [address] ? ? fax Neurology ? Clinical Neurophysiology ? Epilepsy ? Sleep Disorders ? Clinical Informatics documented in this encounterCarondelet [id number] History of Present illness Narrative* Roland Faust [...] my direction and personally dictated by me. Ihmeaghan reviewed the chart and agree that the record accurately reflects my personal performance of the history, physical exam, discussion and plan. documented in this [facility] Work Phone: 1(497) 263-799211-27-2024 Instructions* Patient Instructions* Dave Meneses MA - [...] time of your visit. documented in this [facility] Work Phone: 1([phone]) 749-126210-29-2024 History of Present illness Narrative* Oz Kincaid MD - 02/25/2024 2:43 PM EDTAssociated Problem(s): BEATRICE positive Get Dr. Gonzalez's note (2nd request). * Oz Kincaid MD - 02/25/2024 2:15 PM EDTAssociated Problem(s): Cognitive decline Add memantine 10 -> bid. Then add donepezil 10, titrate. Handout. Get MR images transferred to [facility] PACS for my review. * [...] titrate. Handout. Get MR images transferred to [facility] PACS for my review. Neurogenic pain [...] Restlessness well controlled. Imaging MR L-s (11/2023, [facility]) - HNP T12-L1 mild; canal sten L2-3 mod; errol sten L2-3 modB L4-5-S1 modB US LE (12/2016, [facility]) - atherosclerosis, nl PVR. Testing [facility] (11/2023) - acute L S1 (nEMG) + PN pattern signif worse . . . . (03/2017, [facility]) - PN pattern Labs - T03=054/15/116/>22.3, was 359/16.7H/328/>22.3 ... A1c=8.4, was 10.4(!) ,,, [...] nortrip. Onset Semeiology Imaging MR brain (10/2023, [facility]) - not available via MDIP - atrophy age- appropriate & ^T2/FLAIR Testing [...] ___, orig: ___ Motor - ___, unchanged: Hydraulic Lift Driver 4B ... APB 4R 4+L, orig: ___ [...] in the morning. Continuous Blood Gluc Sensor (Nuro Pharmayle Brent 14 Day Sensor) [facility] [place] apply 1 SENSOR as directed every 14 days use with DEVICE to MONIT... (REFER TO PRESCRIPTION NOTES). cyanocobalamin (Vitamin B-12) 2500 MCG tablet cyclobenzaprine (Flexeril) 10 MG tablet 1-2 tabs QHS 60 tablet 3 Docusate Sodium (DSS) 100 MG capsule Take 100 mg by mouth in the morning and 100 mg in the evening. Droplet Pen Sully 32G X 4 MM [facility] [place] use 1 PEN NEEDLE to inject MEDICATION [...] ? [address] ? [place], [place] [address] ? ? fax Neurology ? Clinical Neurophysiology ? Epilepsy ? Sleep Disorders ? Clinical Informatics documented in this encounterCarondelet HealthUbcwqcbnxk59-12-1533 History of Present illness Narrative* Karl Fritz DPM - 02/10/2024 2:00 PM EDT Images from the original note were not included. HPI: Patient presents today complaining of an ulcer on the plantar 1st met right foot. They have noticedthis for the past month (10/2023). Patient has pain with walking and standing due to this lesion. Patient has tried [facility] for treatment, x-ray, antibiotic, (not taking [...] 7. RTC: 2 weeks. documented in this encounterCarondelet HealthVmkwwyceuu54-57-2275 History of Present illness Narrative* Karl Fritz DPM - 01/27/2024 10:30 AM EDT Images from the original note were not included. HPI: Patient presents today complaining of an ulcer on the plantar 1st met right foot. They have noticedthis for the past month (10/2023). Patient has pain with walking and standing due to this lesion. Patient has tried [facility] for treatment, x-ray, antibiotic, (not taking [...] 1 week for recheck. documented in this encounterCarondelet [id number] History of Present illness Narrative* Karl Fritz [...] 1 week for recheck. documented in this encounterCarondelet HealthIpiiexmwzd12-96-4116 Telephone encounter Note* Telephone Encounter - Cali Duque - 01/10/2024 2:34 PM EDT Called and spoke with Corinna twice both times got disconnected. On purpose or by accident not sure, second time Corinna was given Dr Kincaid's answer. Not sure if she got full and complete answer, but she got enough of it. Carondelet [id number] Miscellaneous Notes* Telephone Encounter - Cali Duque [...] x several days, then 300 bid Corinna [phone] documented in this encounterCarondelet HealthJyanwlstki62-73-2061 Telephone encounter Note* Telephone Encounter - Cali Duque - 01/08/2024 12:37 PM EDT Daughter (Corinna Ayala) called, She was talking with Taye's Nurse, They would like to know if Gabapentin would be a better option for Taye than the PGB? You just inc her PGB from 1 cap bid to 150/300 x several days, then 300 bid Corinna [phone] Carondelet HealthJraokrbxta58-16-0223 History of Present illness Narrative* Oz Kincaid [...] fingertips 4/10. Restlessness well controlled. Imaging MR L-s (11/2023, [facility]) - HNP T12-L1 mild; canal sten L2-3 mod; errol sten L2-3 modB L4-5-S1 modB US LE (12/2016, [facility]) - atherosclerosis, nl PVR. Testing [facility] (11/2023) - acute L S1 (nEMG) + PN pattern signif worse . . . . (03/2017, [facility]) - PN pattern Labs - W20=661/15/116/>22.3, was 359/16.7H/328/>22.3 ... A1c=8.4, was 10.4(!) ,,, [...] ___, orig: ___ Motor - ___, unchanged: Hydraulic Lift Driver 4B ... APB 4R 4+L, orig: ___ [...] positive COVID-19 Diabetes (CMS/HCC) Fibromyalgia High cholesterol ([facility]) History of medical problems ulcer HTN (hypertension) [...] Gluc Sensor (FreeStyle Brent 14 Day Sensor) [facility] [place] apply 1 SENSOR as directed every 14 days use with DEVICE to MONIT... (REFER TO PRESCRIPTION NOTES). cyanocobalamin (Vitamin B-12) 2500 MCG tablet Docusate Sodium (DSS) 100 MG capsule Take 100 mg by mouth in the morning and 100 mg in the evening. Droplet Pen Sully 32G X 4 MM [facility] [place] use 1 PEN NEEDLE to inject MEDICATION [...] 01/07/2024. Oz Kincaid M.D. documented in this encounterCarondelet [id number] History of Present illness Narrative* Karl Fritz, [...] due to this lesion. Patient has tried [facility] for treatment, x-ray, antibiotic, (not taking [...] site with sean vega. She does have [facility]HC and updated orders will be sent. They [...] 7. RTC: 2 weeks. documented in this encounterCarondelet HealthXilladrduk76-05-5569 History of Present illness Narrative* Oz Kincaid [...] arranged Oz Kincaid M.D. documented in this encounterCarondelet [id number] History of Present illness Narrative* Roland Faust [...] name below, I, Sofie Briseno LPN , Samanthaibe attest that this documentation has been prepared [...] exam, discussion and plan. documented in this encounterBluffton Hospital Work Phone: 1(830) 925-117308-19-2024 Instructions* Patient Instructions* Sofie Dean LPN - [...] to Increase physical activity. documented in this encounterBluffton Hospital Work Phone: 1(282) 207-147207-17-2024 History of Present illness Narrative* Jonas Ch [...] Cardiology 2. Nonischemic cardiomyopathy (Multi) Resolved with hindu of sinus rhythm 3. Hypercholesteremia Review of [...] exam, discussion and plan. documented in this encounterBluffton Hospital Work Phone: 1(586) 786-476107-17-2024 Instructions* Patient Instructions* Dakota Barraza RN - [...] to Increase physical activity documented in this encounterBluffton Hospital Work Phone: 1([phone]) 300-455807-15-2024 Progress note Author Chaka Frye [facility] November 11, 2023 4:15pm Note Date/Time November 11, 2023 4:15 pm [facility] [address] [place] [address] Hospitalist Progress Note Signed Patient: Taye Gay MR#: [id number] : 1955 Acct:[id number] Age/Sex: 67 / F Adm Date: 4 Loc: 4N Room: 3S0849-3 Type: ADM IN Attending Dr: Chaka Frye [...] Tablet PO 11/09/24 08:59 1 mg DAILY PARMIJT Administration Ceftriaxone Sodium 1 gm in 50 [...] code Documented By: Chaka Frye MD 4 1606 Signed By: <Electronically signed by Chaka Frye MD> 11/11/23 7939 [facility] Work Phone: 1(707) 508-866307-15-2024 Consult note Author Lit Clark [facility] November 11, 2023 3:11pm Note Date/Time November 11, 2023 10:4 3am [facility] [address] [place] [address] Neurology Consult Note Signed Patient: Taye Gay MR#: [id number] : 1955 Acct:[id number] Age/Sex: 67 / F Adm Date: 4 Loc: 4N Room: 2A7282-4 Type: ADM IN Attending Dr: Chaka Frye MD Copies to: DO Geraldo Garrido MD, RES MD Sandra Mar DO~ HPI Consult Date: 11/11/23 Compo Caster: Geraldo Vo MD, RES Reason for consult: Progressive generalized weakness Consult Narrative HPI: Taye Gay is a 67 y.o. female with a PMH of esophageal stricture, cigarette smoker, GERD, HTN, type 2 diabetes mellitus, HLD, CKD stage G2/A2, peripheral neuropathy and vit B12 deficiency who presented to [facility] on 11/10/23 for concerns regarding generalized weakness. Neurology was consulted for evaluation of generalized weakness. Additional HPI is noted in Assessment and Plan. 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 female with a PMH of esophageal stricture, cigarette smoker, GERD, HTN, type 2 diabetes mellitus, HLD, CKD stage G2/A2, peripheral neuropathy and vit B12 deficiency who presented to [facility] on 11/10/23 for concerns regarding generalized weakness. [...] signed by MD GAGE Vo> 11/11/23 1043 [facility] Work Phone: 1(149) 855-330707-14-2024 Progress note Author Kirt Renae [facility] November 10, 2023 12:24pm Note Date/Time November 10, 2023 12:0 0pm [facility] [address] [place] [address] Hospitalist Progress Note Signed Patient: Taye Gay MR#: [id number] : 1955 Acct:[id number] Age/Sex: 67 / F Adm Date: 4 Loc: Room: [address] [place] [address] Type: ADM IN Attending Dr: Kirt Renae [...] ESR and CRP -Obtain anti Sushma, Anti LOSS PREVENTION SUPERVISOR, anti dsDNA -Obtain CT head without contrast [...] code Documented By: Kirt Renae MD 11/10/23 1159 Signed By: <Electronically signed by Kitr Renae MD> 11/10/23 1229 [facility] Work Phone: 1(297) 167-303207-14-2024 History and physical note Author Jluis Campos [facility] November 10, 2023 6:20am Note Date/Time November 10, 2023 6:11 am [facility] [address] [place] [address] Hospitalist H&P Signed Patient: Taye Gay MR#: [id number] : 1955 Acct:[id number] Age/Sex: 67 / F Adm Date: 4 Loc: Room: [address] [place] [address] Type: ADM IN Attending Dr: Jluis Campos [...] noted below or in HPI [facility] Medical History History of esophageal stricture BMI [...] Confirmed 11/09/23] pen needle, diabetic [Sure-Fine Pen Sully] 06/12/23 [History Confirmed 11/09/23] omeprazole 20 mg [...] weaknesses were noted, patient unable to ambulate. Rdac-wc-lhhq test was normal. No tremors or ataxia with mjqvys-ss-nvux movements. Neuro: AOx3, CN II-VII intact. Moves [...] % (Auto) 26.0 % (.) 11/10/23 03:41 Calvert % (Auto) 8.2 % (.) 11/10/23 03:41 Eos % (Auto) 3.7 % (.) 11/10/23 03:41 Baso % (Auto) 0.9 % (.) 11/10/23 03:41 Nucleat RBC Rel Count 0.1 /100 WBC (0-0.5) 11/10/23 03:41 Neut # (Auto) 5.2 x10E3/uL (1.8-7.7) 11/10/23 03:41 Lymph # (Auto) 2.2 x10E3/uL (1.00-4.8) 11/10/23 03:41 Calvert # (Auto) 0.7 x10E3/uL (0.0-0.8) 11/10/23 03:41 [...] pH 6.0 (5.0-9.0) 11/10/23 05:02 Ur Specific Crowder 1.007 (1.001-1.030) 11/10/23 05:02 Urine Protein Negative [...] <Electronically signed by Jluis Campos DO> 11/10/23619 [facility] Work Phone: 1([phone]) 818-795307-09-2024 [facility] History of Present illness Narrative* Jonas Ch [...] mellitus with other specified complication, unspecified whether terminal 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 insulin use (Multi) Managed by other providers 7. BMI 28.0-28.9,adult The merits of diet and weight loss were advocated Scribe Attestation By signing my name below, I, Sofie Samantha DE LA ROSAibguerline attest that this documentation has been prepared [...] exam, discussion and plan. documented in this encounterBluffton Hospital Work Phone: [phone]) [phone] Instructions* Patient Instructions* Cary Mcdonnell RN - [...] Fall Prevention Education Given documented in this encounterBluffton Hospital Work Phone: 1(121) [phone] Progress note Author Faraz Gilliam [facility] September 14, 2023 1:34pm Note Date/Time September 14, 2023 1:26p [facility] [address] [place] [address] Cardiology Progress Note Signed Patient: Taye Gay MR#: [id number] : 1955 Acct:[id number] Age/Sex: 67 / F Adm Date: 4 Loc: 3T Room: [address] [place] [address] Type: ADM IN Attending Dr: Elva Florian [...] signed by Faraz Gilliam MD> 09/14/23 1334 [facility] Work Phone: 1([phone]) 351-617705-18-2024 Progress note Author Elva Florian [facility] September 14, 2023 2:03am Note Date/Time September 13, 2023 6:15p m [facility] [address] [place] [address] Hospitalist Progress Note Signed Patient: Taye Gay MR#: [id number] : 1955 Acct:[id number] Age/Sex: 67 / F Adm Date: 4 Loc: 3T Room: [address] [place] [address] Type: ADM IN Attending Dr: Elva Florian [...] Tablet PO 09/12/24 08:59 25 mg DAILY [facility] Administration Folic Acid 1 mg 09/13/23 09:00 09/13/23 08:38 Folic Acid 1 Mg Tablet PO 09/12/24 08:59 1 mg DAILY [facility] Administration Glucose 0 gm 09/12/23 20:04 Dextrose 40% Gel 15 Gm Tube PO 09/11/24 20:03 PRN PRN Hypoglycemia Insulin Aspart 0 units 09/12/23 22:00 09/13/23 16:24 Insulin Aspart 300 Units/3 Ml Insuln.Pen SUBCUT 09/11/24 21:59 Not Given TID.WM.HS [facility] Protocol Insulin Glargine 20 units 09/13/23 09:00 09/13/23 08:40 Insulin Glargine 300 Units/3 Ml Insuln.Pen SUBCUT 09/12/24 08:59 20 units DAILY [facility] Administration Metoprolol Succinate 50 mg 09/14/23 09:00 Metoprolol Succinate 50 Mg Tab.Er.24h PO 09/13/24 08:59 DAILY [facility] Metoprolol Tartrate 5 mg 09/12/23 20:04 [...] Hypertension: Plan Documented By: Elva Florian MD 09/13/231808 Signed By: <Electronically signed by Elva Florian MD> 09/14/23 0203 [facility] Work Phone: 1(296) 425-496605-17-2024 Consult note Author Jonas Ch [facility] September 13, 2023 12:25pm Note Date/Time September 13, 2023 12:26 pm [facility] [address] [place] [address] Cardiology Consult Note Signed Patient: Taye Gay MR#: [id number] : 1955 Acct:[id number] Age/Sex: 67 / F Adm Date: 4 Loc: Room: [address] [place] [address] Type: ADM INOo Attending Dr: Elva Florian [...] additional complaints, except as documented [facility] Medical History History of esophageal stricture BMI [...] Confirmed 09/12/23] pen needle, diabetic [Sure-Fine Pen Sully] 06/12/23 [History Confirmed 09/12/23] nortriptyline 50 mg [...] x10E3/uL Lymph # (Auto) 2.0 (1.00-4.8) x10E3/uL Calvert # (Auto) 0.6 (0.0-0.8) x10E3/uL Eos # [...] ml @ 999 mls/hr IV .Q1H1M ONE Rx#:[id number] Oral 50 / 50 Output: Urine 600 [...] signed by MD Jonas Ch> 09/13/23 1225 [facility] Work Phone: 1(172) [phone] History and physical note Author Elva Florian [facility] September 13, 2023 2:09am Note Date/Time September 12, 2023 7:53p m [facility] [address] [place] [address] Hospitalist H&P Signed Patient: Taye Gay MR#: [id number] : 1955 Acct:[id number] Age/Sex: 67 / F Adm Date: 4 Loc: Room: [address] [place] [address] Type: ADM INOo Attending Dr: Elva Florian MD Copies to: Sandra DO Elva Staples MD~ HPI DATE OF EXAMINATION: 09/12/23 HISTORY [...] care Discussed with:?the medical team, the patient PMFSH Medical History History of esophageal stricture [...] Confirmed 09/12/23] pen needle, diabetic [Sure-Fine Pen Sully] 06/12/23 [History Confirmed 09/12/23] nortriptyline 50 mg [...] % (Auto) 20.2 % (.) 09/12/23 14:51 Calvert % (Auto) 5.9 % (.) 09/12/23 14:51 Eos % (Auto) 1.7 % (.) 09/12/23 14:51 Baso % (Auto) 0.9 % (.) 09/12/23 14:51 Nucleat RBC Rel Count 0.2 /100 WBC (0-0.5) 09/12/23 14:51 Neut # (Auto) 7.0 x10E3/uL (1.8-7.7) 09/12/23 14:51 Lymph # (Auto) 2.0 x10E3/uL (1.00-4.8) 09/12/23 14:51 Calvert # (Auto) 0.6 x10E3/uL (0.0-0.8) 09/12/23 14:51 [...] <Electronically signed by Elva Florian MD> 09/13/23208 [facility] Work Phone: 1(671) 492-549002-12-2024 Evaluation note* Encounter Date Diagnosis Assessment Notes Treatment Notes Treatment Clinical Notes May, Type 2 diabetes mellitus with hyperglycemia (ICD-10 - E11.65) [facility] Other 01-23-2024 Evaluation note* Encounter Date Diagnosis Assessment Notes Treatment Notes Treatment Clinical Notes Apr, Primary insomnia (ICD-10 - F51.01) [facility] Other 12-11-2023 Evaluation note* Encounter Date Diagnosis Assessment Notes Treatment Notes Treatment Clinical Notes Mar, Type 2 diabetes mellitus with hyperglycemia (ICD-10 - E11.65) [facility] Other 11-06-2023 Evaluation note* Encounter Date Diagnosis [...] Discussed can start famotidine PRN breakthrough GERD [facility] Other 10-02-2023 Evaluation note* Encounter Date Diagnosis Assessment Notes Treatment Notes Treatment Clinical Notes Jan, Primary insomnia (ICD-10 - F51.01) [facility] Other 09-11-2023 Evaluation note* Encounter Date Diagnosis Assessment Notes Treatment Notes Treatment Clinical Notes Dec, Type 2 diabetes mellitus with hyperglycemia (ICD-10 - E11.65) Managing type 2 diabetes material was published 1. Controlled, Type 2 diabetes with A1c 6.3% 2. Blood glucose levels improved. According to [employer] cgm download 12/25/2022- 3: Avg glucose 156. 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 current use of insulin (ICD-10 - Z79.4) [...] to make it easier material was published [facility] Other 09-06-2023 Evaluation note* Encounter Date Diagnosis Assessment Notes Treatment Notes Treatment Clinical Notes Dec, Esophageal stricture (ICD-10 - K22.2) Dec, Dysphagia (ICD-10 - R13.10) Patient has a narrow esophagus but is improving Patient is to continue omeprazole daily [facility] Other 09-01-2023 Evaluation note* Encounter Date Diagnosis Assessment Notes Treatment Notes Treatment Clinical Notes Dec, Primary insomnia (ICD-10 - F51.01) [facility] Other 08-22-2023 Evaluation note* Encounter Date Diagnosis Assessment Notes Treatment Notes Treatment Clinical Notes Nov, Primary insomnia (ICD-10 - F51.01) [facility] Other 08-02-2023 Evaluation note* Encounter Date Diagnosis [...] reviewed and amended by provider signed below. [facility] Other 07-11-2023 Evaluation note* Encounter Date Diagnosis Assessment Notes Treatment Notes Treatment Clinical Notes Oct, Primary insomnia (ICD-10 - F51.01) [facility] Other 06-01-2023 Evaluation note* Encounter Date Diagnosis Assessment Notes Treatment Notes Treatment Clinical Notes Sep, Type 2 diabetes mellitus with hyperglycemia (ICD-10 - E11.65) Managing type 2 diabetes material was published 1. Controlled, Type 2 diabetes with A1c 6.6% 2. Blood glucose levels improved. According to [employer] cgm download 09/13/2022- 3: Avg glucose 151. 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, skilled nursing current use of insulin (ICD-10 - Z79.4) Sep, Peripheral neuropathy (ICD-10 - G62.9) Living with peripheral neuropathy material was published Sep, Vitamin B 12 deficiency (ICD-10 - E53.8) Good food sources of vitamin B12 material was published 08/2022 Vit b12 392 at target Sep, BMI 29.0-29.9,adult (ICD-10 - Z68.29) Eating healthy: tips to make it easier material was published [facility] Other 05-15-2023 Evaluation note* Encounter Date Diagnosis Assessment Notes Treatment Notes Treatment Clinical Notes August, Primary hypertension (ICD-10 - I10) August, Type 2 diabetes mellitus with hyperglycemia (ICD-10 - E11.65) [facility] Other 04-13-2023 Evaluation note* Encounter Date Diagnosis [...] Due for LDCT for lung CA screening [facility] Other 04-10-2023 Evaluation note* Encounter Date Diagnosis Assessment Notes Treatment Notes Treatment Clinical Notes Jul, Primary insomnia (ICD-10 - F51.01) [facility] Other 03-08-2023 Evaluation note* Encounter Date Diagnosis Assessment Notes Treatment Notes Treatment Clinical Notes Jun, Primary insomnia (ICD-10 - F51.01) [facility] Other 02-21-2023 Evaluation note* Encounter Date Diagnosis Assessment Notes Treatment Notes Treatment Clinical Notes May, Type 2 diabetes mellitus with hyperglycemia (ICD-10 - E11.65) [facility] Other 02-20-2023 Evaluation note* Encounter Date Diagnosis Assessment Notes Treatment Notes Treatment Clinical Notes May, Type 2 diabetes mellitus with hyperglycemia (ICD-10 - E11.65) Managing type 2 diabetes material was published 1. Uncontrolled, Type 2 diabetes with A1c 7.1% 2. Blood glucose levels improved. According to [employer] cgm download 06/04/2022-06/17/2022 : Avg glucose 180. [...] hypertension material was published on [facility] May, skilled nursing current use of insulin (ICD-10 - Z79.4) May, Peripheral neuropathy (ICD-10 - G62.9) Living with peripheral neuropathy material was published May, Vitamin B 12 deficiency (ICD-10 - E53.8) Good food sources of vitamin B12 material was published 08/2021 Vit b12 368 at target May, BMI 35.0-35.9,adult (ICD-10 - Z68.35) Setting weight-loss goals material was published [facility] Other 02-06-2023 Evaluation note* Encounter Date Diagnosis Assessment Notes Treatment Notes Treatment Clinical Notes May, Primary insomnia (ICD-10 - F51.01) [facility] Other 01-26-2023 Evaluation note* Encounter Date Diagnosis Assessment Notes Treatment Notes Treatment Clinical Notes Apr, Hyperlipidemia (ICD-10 - E78.5) [facility] Other 12-06-2022 Evaluation note* Encounter Date Diagnosis Assessment Notes Treatment Notes Treatment Clinical Notes Mar, Type 2 diabetes mellitus with hyperglycemia (ICD-10 - E11.65) [facility] Other 10-19-2022 Evaluation note* Encounter Date Diagnosis Assessment Notes Treatment Notes Treatment Clinical Notes Jan, Primary hypertension (ICD-10 - I10) [facility] Other 09-13-2022 Evaluation note* Encounter Date Diagnosis Assessment Notes Treatment Notes Treatment Clinical Notes Dec, Type 2 diabetes mellitus with hyperglycemia (ICD-10 - E11.65) Managing type 2 diabetes material was published 1. Uncontrolled, Type 2 diabetes with A1c 7.7% 2. Blood glucose levels above target. According to [employer] cgm download 12/26/2021- 2: Avg glucose 211. [...] x1 pen given. Sent order for ashley to deisy squires. Dec, Dietary counseling and surveillance (ICD-10 - Z71.3) Eat well, exercise well, be well: dietary and fitness guidelines material was published Dec, Hyperlipidemia (ICD-10 - E78.5) Managing your cholesterol material was published 08/2021 ldl 68- at target. 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 insulin (ICD-10 - Z79.4) [...] last visit, continue with weight loss efforts [facility] Other 08-17-2022 Progress note Author Walter [facility] December 13, 2021 8:52am Note Date/Time December 13, 2021 8: 52am [facility] [address] [place] [address] General Surgery Progress Note Signed Patient: Taye Gay MR#: [id number] : 1955 Acct:[id number] Age/Sex: 66 / F Adm Date: 2 Loc: Room: [address] [place] [address] Type: ADM ELIZABETHo Attending Dr: Wilmer Vance [...] 12/09/21] insulin lispro 100 unit/mL subcutaneous pen ([facility] SoloStar U-100 Insulin lispro) 1 sliding scale [...] Ml) 1,000 mls @ 100 mls/hr IV .[id number] Stop: 12/12/22 00:00 Last Infusion: 12/13/21 03:35 Dose: Infused Lactated Ringer's (Lactated Ringers) 1,000 mls @ 20 mls/hr IV .Q24H ONE Stop: 12/13/21 11:13 Last Infusion: 12/13/21 03:31 Dose: Infused Insulin Aspart (Insulin Aspart 300 Units/3 Ml Insuln.Pen) 0 units SUBCUT TID.WM.[facility]; Protocol Stop: 12/09/22 11:59 Last Admin: [...] % (Auto) 90.4, Lymph % (Auto) 7.7, Calvert % (Auto) 1.8, Eos % (Auto) 0.0, Baso % (Auto) 0.1, Neut # (Auto) 8.5 H, Lymph # (Auto) 0.7 L, Calvert # (Auto) 0.2, Eos # (Auto) 0.0, [...] % (Auto) 72.7, Lymph % (Auto) 16.1, Calvert % (Auto) 8.8, Eos % (Auto) 2.1, Baso % (Auto) 0.3, Neut # (Auto) 5.3, Lymph # (Auto) 1.2, Calvert # (Auto) 0.6, Eos# (Auto) 0.2, Baso [...] % (Auto) 66.8, Lymph % (Auto) 21.0, Calvert % (Auto) 9.2, Eos % (Auto) 2.6, Baso % (Auto) 0.4, Neut # (Auto) 4.1, Lymph # (Auto) 1.3, Calvert # (Auto) 0.6, Eos # (Auto) 0.2, [...] signed by DO Walter Montgomery> 12/13/21 0852 [facility] Work Phone: [phone] 576-928308-16-2022 Progress note Author Teresa Strong [facility] December 12, 2021 8:43pm Note Date/Time December 12, 2021 2: 49pm [facility] [address] [place] [address] Urology Progress Note Signed Patient: Taye Gay MR#: [id number] : 1955 Acct:[id number] Age/Sex: 66 / F Adm Date: 2 Loc: 3T Room: 1C5130-4 Type: ADM INOo Attending Dr: Arleen Stephen [...] % (Auto) 72.7, Lymph % (Auto) 16.1, Calvert % (Auto) 8.8, Eos % (Auto) 2.1, Baso % (Auto) 0.3, Neut # (Auto) 5.3, Lymph # (Auto) 1.2, Calvert # (Auto) 0.6, Eos# (Auto) 0.2, Baso [...] % (Auto) 66.8, Lymph % (Auto) 21.0, Calvert % (Auto) 9.2, Eos % (Auto) 2.6, Baso % (Auto) 0.4, Neut # (Auto) 4.1, Lymph # (Auto) 1.3, Calvert # (Auto) 0.6, Eos # (Auto) 0.2, [...] <Electronically signed by Teresa Strong MD> 12/12/212042 [facility] Work Phone: [phone] 886-948708-16-2022 Progress note Author Arleen Stephen [facility] December 12, 2021 1:20pm Note Date/Time December 12, 2021 1: 20pm [facility] [address] [place] [address] Hospitalist Progress Note Signed Patient: Taye Gay MR#: [id number] : 1955 Acct:[id number] Age/Sex: 66 / F Adm Date: 2 Loc: 3T Room: [address] [place] [address] Type: ADM INOo Attending Dr: Arleen Stephen [...] 12:00 12/12/21 12:00 12/12/21 12:00 12/12/21 12:12/12/21 12:12/12/21 12:00 Narrative: Patient alert oriented, no [...] signed by Arleen Stephen MD> 12/12/21 1320 [facility] Work Phone: [phone] Progress note Author Walter Montgomery [facility] December 12, 2021 8:07am Note Date/Time December 12, 2021 8: 07am [facility] [address] [place] [address] General Surgery Progress Note Signed Patient: Taye Gay MR#: [id number] : 1955 Acct:[id number] Age/Sex: 66 / F Adm Date: 2 Loc: Room: 3W3439-9 Type: ADM INOo Attending Dr: Arleen Stephen [...] 12/09/21] insulin lispro 100 unit/mL subcutaneous pen ([facility] Insulin lispro) 1 sliding scale [...] Ml) 1,000 mls @ 100 mls/hr IV .[id number] Stop: 12/12/22 00:00 Last Admin: 12/12/21 00:10 Dose: 100 mls/hr Insulin Aspart (Insulin Aspart 300 Units/3 Ml Insuln.Pen) 0 units SUBCUT TID..[facility]; Protocol Stop: 12/09/22 11:59 Last Admin: [...] % (Auto) 66.8, Lymph % (Auto) 21.0, Calvert % (Auto) 9.2, Eos % (Auto) 2.6, Baso % (Auto) 0.4, Neut # (Auto) 4.1, Lymph # (Auto) 1.3, Calvert # (Auto) 0.6, Eos # (Auto) 0.2, [...] signed by DO Walter Montgomery> 12/12/21 0807 [facility] Work Phone: [phone] 760-806108-15-2022 Consult note Author Teresa Strong [facility] December 11, 2021 9:25pm Note Date/Time December 11, 2021 8: 10pm [facility] [address] [place] [address] Urology Consult Note Signed Patient: Taye Gay MR#: [id number] : 1955 Acct:[id number] Age/Sex: 66 / F Adm Date: 2 Loc: Room: [address] [place] [address] Type: ADM INOo Attending Dr: Arleen Stephen [...] % (Auto) 66.8, Lymph % (Auto) 21.0, Calvert % (Auto) 9.2, Eos % (Auto) 2.6, Baso % (Auto) 0.4, Neut # (Auto) 4.1, Lymph # (Auto) 1.3, Calvert # (Auto) 0.6, Eos # (Auto) 0.2, [...] % (Auto) 63.3, Lymph % (Auto) 24.1, Calvert % (Auto) 10.5, Eos % (Auto) 1.8, Baso % (Auto) 0.3, Neut # (Auto) 4.7, Lymph # (Auto) 1.8, Calvert # (Auto) 0.8, Eos # (Auto) 0.1, [...] <Electronically signed by Teresa Strong MD> 12/11/[address] [place] [address] Ctr Work Phone: [phone] Consult note Author Walter Montgomery [facility] December 11, 2021 3:18pm Note Date/Time December 11, 2021 3: 18pm [facility] [address] [place], [place] [id number] General Surgery Consult Note Signed Patient: Taye Gay MR#: [id number] : 1955 Acct:[id number] Age/Sex: 66 / F Adm Date: 2 Loc: 3T Room: [address] [place] [address] Type: ADM INOo Attending Dr: Arleen Stephen [...] unless noted below or in HPI [facility] Vaccinated for COVID-19?: No Medical History Diabetes [...] 12/09/21] insulin lispro 100 unit/mL [facility]) 1 sliding [...] % (Auto) 66.8, Lymph % (Auto) 21.0, Calvert % (Auto) 9.2, Eos % (Auto) 2.6, Baso % (Auto) 0.4, Neut # (Auto) 4.1, Lymph # (Auto) 1.3, Calvert # (Auto) 0.6, Eos# (Auto) 0.2, Baso [...] % (Auto) 63.3, Lymph % (Auto) 24.1, Calvert % (Auto) 10.5, Eos % (Auto) 1.8, Baso % (Auto) 0.3, Neut # (Auto) 4.7, Lymph # (Auto) 1.8, Calvert # (Auto) 0.8, Eos # (Auto) 0.1, [...] % (Auto) 79.8, Lymph % (Auto) 9.6, Calvert % (Auto) 9.1, Eos % (Auto)1.1, Baso % (Auto) 0.4, Neut # (Auto) 10.3 H, Lymph # (Auto) 1.2, Calvert # (Auto) 1.2 H, Eos # (Auto) 0.1, Baso # (Auto) 0.1, Nucleated RBC % (auto) 0.0 12/09/21 08:35: Urine Color Yellow, Urine Appearance Cloudy A, Urine pH 5.5, Ur Specific Crowder 1.030, Urine Protein Negative, Urine Glucose (UA) [...] <Electronically signed by DO Walter Montgomery> 12/11/211517 [facility] Work Phone: [phone] Progress note Author Arleen Stephen [facility] December 11, 2021 1:33pm Note Date/Time December 11, 2021 1: 30pm [facility] [address] [place] [address] Hospitalist Progress Note Signed Patient: Taye Gay MR#: [id number] : 1955 Acct:[id number] Age/Sex: 66 / F Adm Date: 2 Loc: Room: [address] [place] [address] Type: ADM INOo Attending Dr: Arleen Stephen [...] signed by Arleen Stephen MD> 12/11/21 1333 [facility] Work Phone: [phone] 747-592808-14-2022 Progress note Author Arleen Stephen [facility] December 10, 2021 11:26am Note Date/Time December 10, 2021 11 :26am [facility] [address] [place] [address] Hospitalist Progress Note Signed Patient: Taye Gay MR#: [id number] : 1955 Acct:[id number] Age/Sex: 66 / F Adm Date: 2 Loc: Room: [address] [place] [address] Type: ADM IN Attending Dr: Arleen Stephen [...] 1,000 Ml IV 12/09/22 11:29 75 mls/hr .[id number] PARMJIT Administration Ceftriaxone Sodium 1 gm in [...] signed by Arleen Stephen MD> 12/10/21 1126 [facility] Work Phone: [phone] 341-403108-13-2022 History and physical note Author Arleen Stephen [facility] December 09, 2021 11:38am Note Date/Time December 09, 2021 11 :38am [facility] [address] [place] [address] Hospitalist H&P Signed Patient: Taye Gay MR#: [id number] : 1955 Acct:[id number] Age/Sex: 66 / F Adm Date: 2 Loc: ER Room: Type: [facility] ER Attending Dr: Copies to: NON [...] 02/09/21] insulin lispro 100 unit/mL [facility] Insulin lispro) 1 sliding [...] % (Auto) 9.6 % (.) 12/09/21 08:50 Calvert % (Auto) 9.1 % (.) 12/09/21 08:50 Eos % (Auto) 1.1 % (.) 12/09/21 08:50 Baso % (Auto) 0.4 % (.) 12/09/21 08:50 Neut # (Auto) 10.3 x10E3/uL (1.8-7.7) H 12/09/21 08:50 Lymph # (Auto) 1.2 x10E3/uL (1.00-4.8) 12/09/21 08:50 Calvert # (Auto) 1.2 x10E3/uL (0.0-0.8) H 12/09/21 [...] pH 5.5 (5.0-9.0) 12/09/21 08:35 Ur Specific Crowder 1.030 (1.001-1.030) 12/09/21 08:35 Urine Protein Negative [...] <Electronically signed by Arleen Stephen MD> 12/09/21 1130 [facility] Work Phone: [phone] Evaluation note* Encounter Date Diagnosis Assessment Notes [...] good exercise tolerance overall. She does see [facility] diabetes clinic for management of [...] to get her started back on this. [employer] Other 03-14-2022 Evaluation note* Encounter Date Diagnosis Assessment Notes Treatment Notes Treatment Clinical Notes Jun, Type 2 diabetes mellitus with hyperglycemia (ICD-10 - E11.65) Managing type 2 diabetes material was published 1. Controlled, Type 2 diabetes with A1c 6% 2. Blood glucose levels improved. According to [employer] cgm download 06/26/2021- 2: Avg glucose 132. 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 Limon [employer] Other 03-07-2022 Evaluation note* Encounter Date Diagnosis [...] apnea would also be evaluated if needed [employer] Other 01-10-2022 Evaluation note* Encounter Date Diagnosis [...] Reglan to see how she does. Apr, skilled nursing (current) use of insulin (ICD-10 - Z79.4) Apr, Other Patient sees Dr Kenisha Castro and is up-to-date on Paps and mammograms. She did have a colonoscopy done 5 years ago and states it was normal and she is due in 5 more years. I discussed other preventative measures such as vaccines but the patient is not at all interested in any vaccines. [employer] Other 12-14-2021 Evaluation note* Encounter Date Diagnosis Assessment Notes Treatment Notes Treatment Clinical Notes Mar, Type 2 diabetes mellitus with hyperglycemia (ICD-10 - E11.65) [employer] Other 12-06-2021 Evaluation note* Encounter Date Diagnosis [...] Pain in left leg (ICD-10 - M79.605) [employer] Other 11-29-2021 Evaluation note* Encounter Date Diagnosis Assessment Notes Treatment Notes Treatment Clinical Notes Feb, Type 2 diabetes mellitus with hyperglycemia (ICD-10 - E11.65) Managing type 2 diabetes material was published 1. Controlled, Type 2 diabetes with A1c 6.9% 2. Blood glucose levels according to [employer] cgm download 03/14/2021- 021: Avg glucose 167. [...] hypertension material was published [employer]. Feb, skilled nursing current use of insulin (ICD-10 - Z79.4) [...] eating on a budget material was published [employer] Other 11-01-2021 Evaluation note* Encounter Date Diagnosis [...] in her feet sounds neurologic in origin. [employer] Other Chi complaint+Reason for visit Narrative* Reason for Visit [id number] Dietary counseling and surveillance Hyperlipidemia Hypertension Insulin long-term use Peripheral neuropathy Type 2 diabetes mellitus Vitamin B 12 deficiency [facility] Work Phone: Consult note Author Walter Montgomery [facility] December 11, 2021 3:18pm Note Date/Time December 11, 2021 3: 18pm [facility] [address] [place] [address] General Surgery Consult Note Signed Patient: Taye Gay MR#: [id number] : 1955 Acct:[id number] Age/Sex: 66 / F Adm Date: 2 Loc: Room: [address] [place] [address] Type: ADM INOo Attending Dr: Arleen Stephen [...] % (Auto) 66.8, Lymph % (Auto) 21.0, Calvert % (Auto) 9.2, Eos % (Auto) 2.6, Baso % (Auto) 0.4, Neut # (Auto) 4.1, Lymph # (Auto) 1.3, Calvert # (Auto) 0.6, Eos# (Auto) 0.2, Baso [...] % (Auto) 63.3, Lymph % (Auto) 24.1, Calvert % (Auto) 10.5, Eos % (Auto) 1.8, Baso % (Auto) 0.3, Neut # (Auto) 4.7, Lymph # (Auto) 1.8, Calvert # (Auto) 0.8, Eos # (Auto) 0.1, [...] % (Auto) 79.8, Lymph % (Auto) 9.6, Calvert % (Auto) 9.1, Eos % (Auto)1.1, Baso % (Auto) 0.4, Neut # (Auto) 10.3 H, Lymph # (Auto) 1.2, Calvert # (Auto) 1.2 H, Eos # (Auto) 0.1, Baso # (Auto) 0.1, Nucleated RBC % (auto) 0.0 12/09/21 08:35: Urine Color Yellow, Urine Appearance Cloudy A, Urine pH 5.5, Ur Specific Crowder 1.030, Urine Protein Negative, Urine Glucose (UA) [...] <Electronically signed by DO Walter Montgomery> 12/11/[address] [place] [address] Ctr Work Phone: Consult note Author Teresa Strong [facility] December 11, 2021 9:25pm Note Date/Time December 11, 2021 8: 10pm [facility] [address] [place] [address] Urology Consult Note Signed Patient: Taye Gay MR#: [id number] : 1955 Acct:[id number] Age/Sex: 66 / F Adm Date: 2 Loc: 3T Room: [address] [place] [address] Type: ADM INOo Attending Dr: Arleen Stephen [...] 12/09/21] insulin lispro 100 unit/mL [facility] pen [facility] Insulin lispro) 1 sliding [...] % (Auto) 66.8, Lymph % (Auto) 21.0, Calvert % (Auto) 9.2, Eos % (Auto) 2.6, Baso % (Auto) 0.4, Neut # (Auto) 4.1, Lymph # (Auto) 1.3, Calvert # (Auto) 0.6, Eos # (Auto) 0.2, [...] % (Auto) 63.3, Lymph % (Auto) 24.1, Calvert % (Auto) 10.5, Eos % (Auto) 1.8, Baso % (Auto) 0.3, Neut # (Auto) 4.7, Lymph # (Auto) 1.8, Calvert # (Auto) 0.8, Eos # (Auto) 0.1, [...] <Electronically signed by Teresa Strong MD> 12/11/[address] [place] [address] Ctr Work Phone: Consult note Author Lit Clark [facility] Note Date/Time April 29, 2024 11 :07am [facility] [address] [place] [address] Neurology Consult Note Signed Patient: Taye Gay MR#: [id number] : 1955 Acct:[id number] Age/Sex: 68 / F Adm Date: 4 Loc: Room: [address] [place] [address] Type: ADM IN Attending Dr: Priscilla Lang MD Copies to: DO Sandra Garrido DO Rafik Massouh, MD~ HPI Consult Date: 04/29/24 Compo Caster: Lit Clark DO Reason for consult: Slurred [...] noted below or in HPI [facility] Medical History BMI 32.0-32.9,adult Abnormal thyroid blood [...] (Stool Softener) 100 mg PO DAILY PRN sqmpmjezffhc11/14/24 [History Confirmed 04/28/24] multivitamin 1 tab PO DAILY 06/12/23 [History Confirmed 04/28/24] pen needle, diabetic [Sure-Fine Pen Sully] 06/12/23 [History Confirmed 04/28/24] metformin 500 mg [...] Oz Bowling M.D.04/28/2024 9:46 PM Dictation Location: RADIO--[address] 04/28/24 19:44 IMPRESSION: No acute [...] may be metabolic in nature and not passenger relations representative necessarily of transient ischemia or [...] signed by Lit Clark DO> 04/29/24 1107 [facility] Work Phone: Discharge summary Author Wilmer Vance [facility] December 13, 2021 1:58pm Note Date/Time December 13, 2021 1: 58pm [facility] [address] [place] [address] Discharge Summary Signed Patient: Taye Gay MR#: [id number] : 1955 Acct:[id number] Age/Sex: 66 / F Adm Date: 2 Loc: Room: [address] [place] [address]: Wilmer Vance MD Copies to: [...] % (Auto) 90.4, Lymph % (Auto) 7.7, Calvert % (Auto) 1.8, Eos % (Auto) 0.0, Baso % (Auto) 0.1, Neut # (Auto) 8.5 H, Lymph # (Auto) 0.7 L, Calvert # (Auto) 0.2,Eos # (Auto) 0.0, Baso [...] Instructions: Cholecystectomy, Laparoscopic Surgery, Acetaminophen, Cefuroxime,[facility] at [facility] [...] <Electronically signed by Wilmer Vance MD> 12/13/21 [facility]8 [facility] Work Phone: Discharge summary Author Elva Florian [facility] September 15, 2023 1:17am Note Date/Time September 14, 2023 2:20p m [facility] [address] [place] [address] Discharge Summary Signed Patient: Taye Gay MR#: [id number] : 1955 Acct:[id number] Age/Sex: 67 / F Adm Date: 4 Loc: Room: [address] [place] [address]: Elva Florian MD Copies to: [...] .Route (DME) pen needle, diabetic [Sure-Fine Pen Sully] .Route (DME) FreeStyle Brent 14 Day Sensor [...] signed by Elva Florian MD> 09/15/23 0117 [facility] Work Phone: Discharge summary Author Pirscilla Lang [facility] Note Date/Time April 30, 2024 10 :28am [facility] [address] [place] [address] Discharge Summary Signed Patient: Taye Gay MR#: [id number] : 1955 Acct:[id number] Age/Sex: 68 / F Adm Date: 4 Loc: Room: [address] [place] [address]: Priscilla Lang MD Copies to: [...] taking multiple medications that could potentially cause RN EMERGENCY side effect and toxic encephalopathy. Diagnosis is [...] polypharmacy regimen to reduce her risk of RN EMERGENCY side effects or drug?drug interaction. At this [...] ask her primary care doctor to obtain [facility] record entirely to address [...] ask your primary care provider to obtain [facility] records entirely to follow up on all [...] or having drug?drug interaction. Discharging you from [facility] does not mean that your medical care [...] A DAY aspirin 81 mg Tablet,Delayed Release (/Ec) 81 mg PO DAILY multivitamin Tablet 1 tab PO DAILY docusate sodium [Stool Softener] 100 mg capsule 100 mg PO DAILY PRN (Reason: constipation) (DME) pen needle, diabetic [Sure-Fine Pen Sully] .Route lidocaine 5 % ointment 1 applic [...] % (Auto) 63.5, Lymph % (Auto) 24.9, Calvert % (Auto) 8.3, Eos % (Auto) 2.9, Baso % (Auto) 0.4, Nucleat RBC Rel Count 0.0, Neut # (Auto) 4.6, Lymph # (Auto) 1.8, Calvert # (Auto) 0.6, Eos # (Auto) 0.2, [...] signed by Priscilla Lang MD> 04/30/24 1028 [facility] Work Phone: evaluation noteNo InformationNort Yush[employer] Other Evaluation note* Diagnosis Onset Date Resolution Status Cholelithiasis acute Emphysematous cystitis acute Pyelonephritis acute Right lateral abdominal pain acute [facility] Work Phone: Evaluation noteNo assessment information available [facility] Work Phone: evaluation note* Diagnosis Onset Date Resolution Status [id number] acute Dietary counseling and surveillance acute Hyperlipidemia acute Hypertension acute Insulin long-term use acute Peripheral neuropathy acute Type 2 diabetes mellitus acu te Vitamin B 12 deficiency acut e [facility] Work Phone: evaluation note* Diagnosis Onset Date Resolution Status BMI 28.0-28.9,adult acute [id number] acute Dietary counseling and surveillance acute Hyperlipidemia acute Hypertension acute Insulin long-term use acute Peripheral neuropathy acute Type 2 diabetes mellitus acu te Vitamin B 12 deficiency acut e [facility] Work Phone: evalupfcmc note* Diagnosis Onset Date Resolution Status BMI 28.0-28.9,adult acute [id number] acute Dietary counseling and surveillance acute Hyperlipidemia acute Hypertension acute Insulin long-term use acute Peripheral neuropathy acute Type 2 diabetes mellitus acu te Vitamin B 12 deficiency acut e Dizziness acute Hypertension acute Primary insomnia acute Type 2 diabetes mellitus acu te [facility] Work Phone: evaluation note* Diagnosis Onset Date Resolution Status BMI 28.0-28.9,adult acute [id number] acute Dietary counseling and surveillance acute Hyperlipidemia acute Hypertension acute Insulin long-term use acute Peripheral neuropathy acute Type 2 diabetes mellitus acu te Vitamin B 12 deficiency acut e Dizziness acute Hypertension acute Primary insomnia acute Type 2 diabetes mellitus acu te PAD (peripheral artery disease) acute [facility] Work Phone: Evaluation note* Diagnosis Onset Date Resolution Status PAD (peripheral artery disease) acute BMI 28.0-28.9,adult acute [id number] acute Dietary counseling and surveillance acute Hyperlipidemia acute Hypertension acute Peripheral neuropathy acute Tachycardia acute Type 2 diabetes mellitus acu te Vitamin B 12 deficiency acut e Atrial flutter with rapid ventricular response acute Chest pain acute Hyperlipidemia acute Hypertension acute New onset atrial flutter acu te Type 2 diabetes mellitus acu te [facility] Work Phone: Evaluation note* Diagnosis Onset Date Resolution Status PAD (peripheral artery disease) acute BMI 28.0-28.9,adult acute [id number] acute Dietary counseling and surveillance acute Hyperlipidemia acute Hypertension acute Peripheral neuropathy acute Tachycardia acute Type 2 diabetes mellitus acu te Vitamin B 12 deficiency acut e Atrial flutter with rapid ventricular response acute Chest pain acute Hyperlipidemia acute Hypertension acute New onset atrial flutter acu te Type 2 diabetes mellitus acu te New onset atrial flutter acu te Mobility impaired noneactive [facility] Work Phone: Evaluation note* Diagnosis Typical atrial flutter (Multi) Nonischemic cardiomyopathy (Multi) Other primary cardiomyopathies Hypertension, unspecified type Hypercholesteremia Pure hypercholesterolemia Smoker Tobacco use disorder Type 2 diabetes mellitus with other specified complication, unspecified whether terminal 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 insulin use (Multi) BMI 28.0-28.9,adult documented in this encounter [facility] Work Phone: Evaluation note* Diagnosis Onset Date Resolution Status BMI 28.0-28.9,adult acute [id number] acute Dietary counseling and surveillance acute Hyperlipidemia [...] diabetes mellitus acu te Mobility impaired noneactive [facility] Work Phone: Evaluation note* Diagnosis Onset Date Resolution Status BMI 28.0-28.9,adult acute [id number] acute Dietary counseling and surveillance acute Hyperlipidemia [...] diabetes mellitus with hyperglycemia acute Weakness acute [facility] Work Phone: Evaluation note* Diagnosis Onset Date Resolution Status BMI 28.0-28.9,adult acute [id number] acute Dietary counseling and surveillance acute Hyperlipidemia [...] B 12 deficiency acut e Weakness acute [facility] Work Phone: Evaluation note* Diagnosis Onset Date Resolution Status BMI 28.0-28.9,adult acute [id number] acute Dietary counseling and surveillance acute Hyperlipidemia [...] acut e Weakness acute BMI 28.0-28.9,adult acute [id number] acute Dietary counseling and surveillance acute Hyperlipidemia acute Hypertension acute Peripheral neuropathy acute Type 2 diabetes mellitus acu te Vitamin B 12 deficiency acut e [facility] Work Phone: Evaluation note* Diagnosis Onset Date Resolution Status BMI 28.0-28.9,adult acute [id number] acute Dietary counseling and surveillance acute Hyperlipidemia [...] thyroid blood test acute BMI 28.0-28.9,adult acute [id number] acute Dietary counseling and surveillance acute Hyperlipidemia acute Hypertension acute Peripheral neuropathy acute Type 2 diabetes mellitus acu te Vitamin B 12 deficiency acut e [facility] Work Phone: Evaluation note* Diagnosis Onset Date Resolution Status BMI 28.0-28.9,adult acute [id number] acute Dietary counseling and surveillance acute Hyperlipidemia [...] thyroid blood test acute BMI 28.0-28.9,adult acute [id number] acute Dietary counseling and surveillance acute Hyperlipidemia acute Hypertension acute Peripheral neuropathy acute Type 2 diabetes mellitus acu te Vitamin B 12 deficiency acut e Hospital discharge follow-up acute Hypomagnesemia acute [facility] Work Phone: Evaluation note* Diagnosis Onset Date Resolution Status Ambulatory dysfunction acute Hypomagnesemia acute Hypothyroid acute Type 2 diabetes mellitus with hyperglycemia acute Vitamin B 12 deficiency acut e Weakness acute Abnormal thyroid blood test acute BMI 28.0-28.9,adult acute [id number] acute Dietary counseling and surveillance acute Hyperlipidemia acute Hypertension acute Peripheral neuropathy acute Type 2 diabetes mellitus acu te Vitamin B 12 deficiency acut e Hospital discharge follow-up acute Hypomagnesemia acute [facility] Work Phone: Evaluation note* Diagnosis Ulcer of right foot, limited to breakdown of skin (CMS/HCC)- Primary Blister of right foot, subsequent encounter 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) documented in this encounter [facility] HealthcareEvaluation note* Diagnosis Onset Date Resolution Status Ambulatory dysfunction acute Hypomagnesemia acute Hypothyroid acute Type 2 diabetes mellitus with hyperglycemia acute Vitamin B 12 deficiency acut e Weakness acute Abnormal thyroid blood test acute BMI 28.0-28.9,adult acute [id number] acute Dietary counseling and surveillance acute Hyperlipidemia acute Hypertension acute Peripheral neuropathy acute Type 2 diabetes mellitus acu te Vitamin B 12 deficiency acut e Hospital discharge follow-up acute Hypomagnesemia acute Weakness acute [facility] Work Phone: Evaluation note* Diagnosis [...] syndrome B12 deficiency documented in this encounter [facility] HealthcareEvaluation note* Diagnosis Hypertension, unspecified type Typical atrial flutter (Multi) documented in this encounter [facility] Work Phone: Evaluation note* Diagnosis Lumbosacral radiculopathy at S1- Primary Neurogenic pain Cervical paraspinal muscle spasm Spasm of muscle Lumbar paraspinal muscle spasm Other symptoms referable to back Carpal tunnel syndrome, bilateral Carpal tunnel syndrome B12 deficiency documented in this encounter [facility] HealthcareEvaluation note* Diagnosis Nonischemic cardiomyopathy (Multi)- Primary Other primary cardiomyopathies Typical atrial flutter (Multi) Hypercholesteremia Pure hypercholesterolemia Primary hypertension Unspecified essential hypertension Current smoker BMI 28.0-28.9,adult High risk medication use documented in this encounter [facility] Work Phone: Evaluation note* Diagnosis Leg [...] 30.0-30.9,adult Current smoker documented in this encounter [facility] Work Phone: Evaluation note* Diagnosis Carpal [...] 32.0-32.9,adult Current smoker documented in this encounter [facility] Work Phone: Evaluation note* Diagnosis Leg [...] 30-39.9) Current smoker documented in this encounter [facility] Work Phone: Evaluation note* Diagnosis Leg [...] limb Bilateral leg weakness Muscle weakness (generalized) Weakness of both lower extremities- Primary Carpal tunnel syndrome, bilateral Carpal tunnel syndrome Cognitive decline Cervical paraspinal muscle spasm Spasm of muscle B12 deficiency Guyon syndrome, unspecified laterality documented in this encounter [facility] Healthcare[facility] and physical note Author Arleen Stephen [facility] December 09, 2021 11:38am Note Date/Time December 09, 2021 11 :38am [facility] [address] [place] [address] Hospitalist H&P Signed Patient: Taye Gay MR#: [id number] : 1955 Acct:[id number] Age/Sex: 66 / F Adm Date: 2 Loc: ER Room: Type: [facility] ER Attending Dr: Copies to: NON [...] 02/09/21] insulin lispro 100 unit/mL [facility]ulin lispro) 1 sliding [...] % (Auto) 9.6 % (.) 12/09/21 08:50 Calvert % (Auto) 9.1 % (.) 12/09/21 08:50 Eos % (Auto) 1.1 % (.) 12/09/21 08:50 Baso % (Auto) 0.4 % (.) 12/09/21 08:50 Neut # (Auto) 10.3 x10E3/uL (1.8-7.7) H 12/09/21 08:50 Lymph # (Auto) 1.2 x10E3/uL (1.00-4.8) 12/09/21 08:50 Calvert # (Auto) 1.2 x10E3/uL (0.0-0.8) H 12/09/21 [...] pH 5.5 (5.0-9.0) 12/09/21 08:35 Ur Specific Crowder 1.030 (1.001-1.030) 12/09/21 08:35 Urine Protein Negative [...] signed by Arleen Stephen MD> 12/09/21 1138 [facility] Work Phone: History and physical note Author Jluis Campos [facility] November 10, 2023 6:20am Note Date/Time November 10, 2023 6:11 am [facility] [address] [place] [address] Hospitalist H&P Signed Patient: Taye Gay MR#: [id number] : 1955 Acct:[id number] Age/Sex: 67 / F Adm Date: 4 Loc: 4N Room: [id number] Type: ADM IN Attending Dr: Jluis Campos DO Copies to: Sandra Keita, DO Jluis Campos, ~ HPI DATE OF EXAMINATION: 11/10/23 CHIEF [...] noted below or in HPI [facility] Medical History History of esophageal stricture BMI [...] Father Heart disease History of stroke [facility] Problem: Diagnosed with Stroke Cancer throat heart [...] Confirmed 11/09/23] pen needle, diabetic [Sure-Fine Pen Sully] 06/12/23 [History Confirmed 11/09/23] omeprazole 20 mg [...] weaknesses were noted, patient unable to ambulate. Uxww-wj-ubhz test was normal. No tremors or ataxia with wlcrec-lm-sbqz movements. Neuro: AOx3, CN II-VII intact. Moves [...] % (Auto) 26.0 % (.) 11/10/23 03:41 Calvert % (Auto) 8.2 % (.) 11/10/23 03:41 Eos % (Auto) 3.7 % (.) 11/10/23 03:41 Baso % (Auto) 0.9 % (.) 11/10/23 03:41 Nucleat RBC Rel Count 0.1 /100 WBC (0-0.5) 11/10/23 03:41 Neut # (Auto) 5.2 x10E3/uL (1.8-7.7) 11/10/23 03:41 Lymph # (Auto) 2.2 x10E3/uL (1.00-4.8) 11/10/23 03:41 Calvert # (Auto) 0.7 x10E3/uL (0.0-0.8) 11/10/23 03:41 [...] pH 6.0 (5.0-9.0) 11/10/23 05:02 Ur Specific Crowder 1.007 (1.001-1.030) 11/10/23 05:02 Urine Protein Negative [...] signed by Jluis Campos DO> 11/10/23 0620 [facility] Work Phone: History and physical note Author Jori Hearn [facility] Note Date/Time April 29, 2024 6: 39am [facility] [address] [place] [address] Hospitalist H&P Signed Patient: Taye Gay MR#: [id number] : 1955 Acct:[id number] Age/Sex: 68 / F Adm Date: 4 Loc: 3T Room: [address] [place] [address] Type: ADM IN Attending Dr: Jori Hearn DO Copies to: DO Jori Daniels, DO~ HPI DATE OF EXAMINATION: 04/29/24 [...] WBCs, RBCs and rare yeast. [facility] provided 3 to 24 mg of aspirin [...] of dementia, possible Alzheimer's dementia -continue home [id number] mg twice daily and donepezil 20 mg daily 12. Atrial fibrillation - continue Eliquis 5 mg twice daily for anticoagulationand carvedilol 12.5 mg twice daily. EKG in ER shows NSR 13. Hypoxia - no respiratory distress or cardiopulmonary complaints to accompany this. Will monitor telemetry and address as needed [facility] Medical History BMI 32.0-32.9,adult Abnormal thyroid blood [...] History Father Heart disease History of stroke [facility] Problem: Diagnosed with Stroke Cancer throat [...] (Stool Softener) 100 mg PO DAILY PRN hkblexxakewm29/14/24 [History Confirmed 04/28/24] multivitamin 1 tab PO DAILY 06/12/23 [History Confirmed 04/28/24] pen needle, diabetic [Sure-Fine Pen Sully] 06/12/23 [History Confirmed 04/28/24] metformin 500 mg [...] % (Auto) 24.6 % (.) 04/28/24 19:54 Calvert % (Auto) 7.6 % (.) 04/28/24 19:54 Eos % (Auto) 2.7 % (.) 04/28/24 19:54 Baso % (Auto) 1.1 % (.) 04/28/24 19:54 Nucleat RBC Rel Count 0.2 /100 WBC (0-0.5) 04/28/24 19:54 Neut # (Auto) 6.5 x10E3/uL (1.8-7.7) 04/28/24 19:54 Lymph # (Auto) 2.5 x10E3/uL (1.00-4.8) 04/28/24 19:54 Calvert # (Auto) 0.8 x10E3/uL (0.0-0.8) 04/28/24 19:54 [...] pH 5.5 (5.0-9.0) 04/28/24 22:02 Ur Specific Crowder 1.038 (1.001-1.030) H 04/28/24 22:02 Urine Protein [...] signed by Jori Hearn DO> 04/29/24 0639 [facility] Work Phone: History and physical note Author Manjit Gleason [facility] Note Date/Time September 10, 2024 12:41 pm [facility] [address] [place] [address] Gastroenterology H&P Signed Patient: Taye Gay MR#: [id number] : 1955 Acct:[id number] Age/Sex: 68 / F Adm Date: 5 Loc: Room: Type: [facility] Attending Dr: Manjit Gleason MD [...] signed by Manjit Gleason MD> 09/10/24 1241 [facility] Work Phone: History general Narrative - Reported* Type Description Date Medical History HTN Medical History Diabetes Medical History Obesity Medical History HLP Medical History tonsillectomy Medical History hysterectomy Medical History Cataracts removed Bilateral Medical History Upper eye lift Surgical History tonsillectomy Surgical History hysterectomy Surgical History cataracts, bilaterally Surgical History eye lid surgery Surgical History removed cervix 12/2018 [employer] Other Hisaffy general Narrative - Reported* Type Description Date Medical History HTN Medical History Diabetes Medical History Obesity Medical History HLP Medical History tonsillectomy Medical History hysterectomy Medical History Cataracts removed Bilateral Medical History Upper eye lift Surgical History tonsillectomy Surgical History hysterectomy Surgical History cataracts, bilaterally Surgical History eye lid surgery Surgical History removed cervix 12/2018 Hospitalization History See Above [employer] Other Hiskeur general Narrative - Reported* Type Description Date Medical History HTN Medical History Diabetes Medical History Obesity Medical History HLP Medical History tonsillectomy Medical History hysterectomy Medical History Cataracts removed Bilateral Medical History Upper eye lift Surgical History tonsillectomy Surgical History partial hysterectomy Surgical History cataracts, bilaterally Surgical History eye lid surgery--bilateral Surgical History removed cervix 12/2018 Hospitalization History See Above [employer] Other Hisyzvj general Narrative - Reported* Type Description Date [...] History UTI and gallbladder jami yusef 11/2021 [employer] Other Hiscgjy general Narrative - Reported* Type Description Date [...] History UTI and gallbladder jami yusef 11/2021 [employer] [facility]: [facility]: [facility] Work Phone: Hospital Discharge instructionsAmbulatory Orders* Initiate [...] - Care to be managed by PCP [facility] Work Phone: Hospital Discharge instructions Additional Instructions I may not have addressed or treated all of your medical illnesses or the abnormal blood work or imaging studies during this hospitalization. Please ask your primary care provider to obtain [facility] records entirely to follow up on all [...] having drug drug interaction. Discharging you from [facility] does not mean that your medical care ends here and now. You may still need additional monitoring, work up, investigation, and treatment plan to be handled from this point on by out patient providers including your primary care provider and specialists. For any medication question, please contact your retail pharmacist or your primary care provider. Thank you.[facility] Work Phone: Hospital Discharge instructionsAmbulatory Orders* Referral to Pain Management Location: None Selected [facility] Work Phone: Progress note Author Arleen Stephen [facility] December 10, 2021 11:26am Note Date/Time December 10, 2021 11 :26am [facility] [address] [place] [address] Hospitalist Progress Note Signed Patient: Taye Gay MR#: [id number] : 1955 Acct:[id number] Age/Sex: 66 / F Adm Date: 2 Loc: 3T Room: [address] [place] [address] Type: ADM IN Attending Dr: Arleen Stephen [...] 1,000 Ml IV 12/09/22 11:29 75 mls/hr .[id number] PARMJIT Administration Ceftriaxone Sodium 1 gm in [...] signed by Arleen Stephen MD> 12/10/21 1126 [facility] Work Phone: Progress note Author Arleen Stephen [facility] December 11, 2021 1:33pm Note Date/Time December 11, 2021 1: 30pm [facility] [address] [place] [address] Hospitalist Progress Note Signed Patient: Taye Gay MR#: [id number] : 1955 Acct:[id number] Age/Sex: 66 / F Adm Date: 2 Loc: Room: [address] [place] [address] Type: ADM INOo Attending Dr: Arleen Stephen [...] signed by Arleen Stephen MD> 12/11/21 1333 [facility] Work Phone: Progress note Author Walter Montgomery [facility] December 12, 2021 8:07am Note Date/Time December 12, 2021 8: 07am [facility] [address] [place] [address] General Surgery Progress Note Signed Patient: Taye Gay MR#: [id number] : 1955 Acct:[id number] Age/Sex: 66 / F Adm Date: 2 Loc: Room: [address] [place] [address] Type: ADM INOo Attending Dr: Arleen Stephen [...] 12/09/21] insulin lispro 100 unit/mL [facility]-100 Insulin lispro) 1 sliding [...] Ml) 1,000 mls @ 100 mls/hr IV .[id number] Stop: 12/12/22 00:00 Last Admin: 12/12/21 00:10 Dose: 100 mls/hr Insulin Aspart (Insulin Aspart 300 Units/3 Ml Insuln.Pen) 0 units SUBCUT TID.WM.[facility]; Protocol Stop: 12/09/22 11:59 Last Admin: [...] % (Auto) 66.8, Lymph % (Auto) 21.0, Calvert % (Auto) 9.2, Eos % (Auto) 2.6, Baso % (Auto) 0.4, Neut # (Auto) 4.1, Lymph # (Auto) 1.3, Calvert # (Auto) 0.6, Eos # (Auto) 0.2, [...] signed by DO Walter Montgomery> 12/12/21 0807 [facility] Work Phone: Progress note Author Arleen Stephen [facility] December 12, 2021 1:20pm Note Date/Time December 12, 2021 1: 20pm [facility] [address] [place] [address] Hospitalist Progress Note Signed Patient: Taye Gay MR#: [id number] : 1955 Acct:[id number] Age/Sex: 66 / F Adm Date: 2 Loc: Room: [address] [place] [address] Type: ADM INOo Attending Dr: Arleen Stephen [...] Insuln.Pen SUBCUT 12/09/22 11:59 Not Given TID.WM.[facility] Protocol Lidocaine HCl 0.1 ml 12/12/21 11:14 Lidocaine 1% 50 Ml Vial INTRADERMA 12/12/21 17:15 PREOP PRN Venipuncture Nortriptyline HCl 50 mg 12/09/21 21:00 12/12/21 10:33 Nortriptyline 25 Mg Capsule PO 12/09/22 20:59 Not Given BID PARMJIT Omeprazole 20 mg 12/10/21 09:00 12/12/21 10:33 Omeprazole [address] Caps[address].Dr PO 12/10/22 08:59 Not Given DAILY [facility] Ondansetron HCl 4 mg 12/09/21 11:19 Ondansetron 4 Mg/2 Ml Vial IV-PUSH 12/09/22 11:18 Q8H PRN Nausea And Vomiting Pioglitazone HCl 15 mg 12/10/21 09:00 12/12/21 10:33 Pioglitazone 15 Mg Tablet PO 12/10/22 08:59 Not Given DAILY [facility] Potassium Chloride 40 meq 12/09/21 11:19 [...] signed by Arleen Stephen MD> 12/12/21 1320 [facility] Work Phone: Progress note Author Teresa Strong [facility] December 12, 2021 8:43pm Note Date/Time December 12, 2021 2: 49pm [facility] [address] [place] [address] Urology Progress Note Signed Patient: Taye Gay MR#: [id number] : 1955 Acct:[id number] Age/Sex: 66 / F Adm Date: 2 Loc: Room: [address] [place] [address] Type: ADM INOo Attending Dr: Arleen Stephen [...] % (Auto) 72.7, Lymph % (Auto) 16.1, Calvert % (Auto) 8.8, Eos % (Auto) 2.1, Baso % (Auto) 0.3, Neut # (Auto) 5.3, Lymph # (Auto) 1.2, Calvert # (Auto) 0.6, Eos# (Auto) 0.2, Baso [...] % (Auto) 66.8, Lymph % (Auto) 21.0, Calvert % (Auto) 9.2, Eos % (Auto) 2.6, Baso % (Auto) 0.4, Neut # (Auto) 4.1, Lymph # (Auto) 1.3, Calvert # (Auto) 0.6, Eos # (Auto) 0.2, [...] <Electronically signed by Teresa Strong MD> 12/12/212042 [facility] Work Phone: Progress note Author Walter Montgomery [facility] December 13, 2021 8:52am Note Date/Time December 13, 2021 8: 52am [facility] [address] [place] [address] General Surgery Progress Note Signed Patient: Taye Gay MR#: [id number] : 1955 Acct:[id number] Age/Sex: 66 / F Adm Date: 2 Loc: Room: [address] [place] [address] Type: ADM INOo Attending Dr: Wilmer Vance [...] 12/09/21] insulin lispro 100 unit/mL [facility] pen ([facility] U-100 Insulin lispro) 1 sliding [...] Ml) 1,000 mls @ 100 mls/hr IV .[id number] Stop: 12/12/22 00:00 Last Infusion: 12/13/21 03:35 [...] % (Auto) 90.4, Lymph % (Auto) 7.7, Calvert % (Auto) 1.8, Eos % (Auto) 0.0, Baso % (Auto) 0.1, Neut # (Auto) 8.5 H, Lymph # (Auto) 0.7 L, Calvert # (Auto) 0.2, Eos # (Auto) 0.0, [...] % (Auto) 72.7, Lymph % (Auto) 16.1, Calvert % (Auto) 8.8, Eos % (Auto) 2.1, Baso % (Auto) 0.3, Neut # (Auto) 5.3, Lymph # (Auto) 1.2, Calvert # (Auto) 0.6, Eos# (Auto) 0.2, Baso [...] % (Auto) 66.8, Lymph % (Auto) 21.0, Calvert % (Auto) 9.2, Eos % (Auto) 2.6, Baso % (Auto) 0.4, Neut # (Auto) 4.1, Lymph # (Auto) 1.3, Calvert # (Auto) 0.6, Eos # (Auto) 0.2, [...] signed by DO Walter Montgomery> 12/13/21 0852 [facility] Work Phone: Progress note Author Priscilla Lang [facility] Note Date/Time April 29, 2024 11 :02am [facility] [address] [place] [address] Hospitalist Progress Note Signed Patient: Taye Gay MR#: [id number] : 1955 Acct:[id number] Age/Sex: 68 / F Adm Date: 4 Loc: 3T Room: [address] [place] [address] Type: ADM IN Attending Dr: Priscilla Lang [...] of dementia, possible Alzheimer's dementia -continue home [id number] mg twice daily and donepezil 20 mg [...] Administration Sodium Chloride 0 ml 04/28/24 19:32 12/31/24 21:22 Sodium Chloride 0.9 % 10 Ml [...] <Electronically signed by Priscilla Lang MD> 04/29/24 110 [facility] Work Phone: Progress note Author Lit Clark [facility] Note Date/Time April 30, 2024 12 :30pm [facility] [address] [place] [address] Neurology Progress Note Signed with Addenda Patient: Taye Gay MR#: [id number] : 1955 Acct:[id number] Age/Sex: 68 / F Adm Date: 4 Loc: Room: [address] [place] [address] Type: ADM IN Attending Dr: Priscilla Lang MD Copies to: ~ ADDENDUM1 Patient has refused to remove her nail venezuelan for MRI. Unable to confirm whether or [...] may be metabolic in nature and not passenger relations representative necessarily of transient ischemia or [...] signed by Lit Clark DO> 04/30/24 0708 [facility] Work Phone: Renlhg for referral (narrative)No reason for referral information availableMad[facility]tr Work Phone: Reason for visit Narrative* Other Medical (Routine) - Closed Specialty Diagnoses / Procedures Referred By Tahmina thurston Referred To Contact Neurology Diagnoses Numbness Leg pain, left Leg pain, right Bilateral leg weakness Procedures EMG AND NERVE CONDUCTION STUDY Oz Kincaid MD [address] [place] [address] Phone: tel: fax: Oz Kincaid MD [address] [place] [address] Phone: tel: fax: Referral ID Status Reason Start Date Expiration Date V isits Requested Visits Authorized [id number] Closed Perform Procedure 10/06/2024 04/04/2025 1 1 [facility] for [facility] Narrative* Other Medical (Routine) - Closed Specialty Diagnoses / Procedures Referred By Tahmina thurston Referred To Contact Neurology Diagnoses Arm weakness Numbness Arm pain, right Arm pain, left Procedures EMG AND NERVE CONDUCTION STUDY Oz Kincaid MD [address] [place] [address] Phone: tel: fax: Oz Kincaid MD [address] [place] [address] Phone: tel: fax: Referral ID Status Reason Start Date Expiration Date V isits Requested Visits Authorized [id number] Closed Perform Procedure 11/16/2024 05/15/2025 1 1 [...] December 4:05pm Procedure Findings Note HNO ID: [id number] Author: Phi Joaquin Service: Gynecology Oncology Author Type: Physician Type: Brief Op Note Filed: 01/17/2019 7:15 PM Note Text: BRIEF OPERATIVE / PROCEDURE NOTE LOG ID: [id number] SURGERY/PROCEDURE DATE: 01/01/2019 INCISION/PROCEDURE START TIME: 8:11 AM INCISION CLOSE/PROCEDURE END TIME: 8:34 AM SURGEON(S)/PROCEDURALIST(S) AND DATA RECOVERY PLANNER(S): Surgeon(s) and Role: * Theo Joaquin - [...] 01, 2019 TIME: 8:39 AM PAGER/CONTACT #: [id number] Chief Complaint and Reason for Visit Chief Complaint right side pain Low R abd pain Reason for Visit Cholelithiasis Emphysematous cystitis Pyelonephritis Right lateral abdominal pain Chief Complaint g02.97 f17.210 Chief Complaint g02.97 f17.210 Z12.39 Chief Complaint E11.4 Z78.0 Chief Complaint 3 month follow up Reason for Visit BMI 28.0-28.9,adult [id number] Dietary counseling and surveillance Hyperlipidemia Hypertension Insulin long-term use Peripheral neuropathy Type 2 diabetes mellitus Vitamin B 12 deficiency Chief Complaint 3 month follow up PVD FOLLOW UP Reason for Visit BMI 28.0-28.9,adult [id number] Dietary counseling and surveillance Hyperlipidemia Hypertension Insulin long-term use Peripheral neuropathy Type 2 diabetes mellitus Vitamin B 12 deficiency Dizziness Hypertension Primary insomnia Type 2 diabetes mellitus Chief Complaint 3 month follow up PVD FOLLOW UP g02.97 f17.210 Reason for Visit BMI 28.0-28.9,adult [id number] Dietary counseling and surveillance Hyperlipidemia Hypertension Insulin long-term use Peripheral neuropathy Type 2 diabetes mellitus Vitamin B 12 deficiency Dizziness Hypertension Primary insomnia Type 2 diabetes mellitus PAD (peripheral artery disease) Chief Complaint 3 month follow up PVD FOLLOW UP g02.97 f17.210 E11.9 E78.5 E53.8 Reason for Visit BMI 28.0-28.9,adult [id number] Dietary counseling and surveillance Hyperlipidemia Hypertension Insulin long-term use Peripheral neuropathy Type 2 diabetes mellitus Vitamin B 12 deficiency Dizziness Hypertension Primary insomnia Type 2 diabetes mellitus PAD (peripheral artery disease) Chief Complaint PVD FOLLOW UP g02.97 f17.210 E11.9 E78.5 E53.8 Amb Documentation brent on phone chest pains chest pains Reason for Visit PAD (peripheral evert ry disease) BMI 28.0-28.9,adult [id number] Dietary counseling and surveillance Hyperlipidemia Hypertension Peripheral [...] PAD (peripheral evert ry disease) BMI 28.0-28.9,adult [id number] Dietary counseling and surveillance Hyperlipidemia Hypertension Peripheral [...] i70.91 d51.3 Reason for Visit BMI 28.0-28.9,adult [id number] Dietary counseling and surveillance Hyperlipidemia Hypertension Peripheral [...] d51.3 aflutter Reason for Visit BMI 28.0-28.9,adult [id number] Dietary counseling and surveillance Hyperlipidemia Hypertension Peripheral [...] Falls, Shaky Reason for Visit BMI 28.0-28.9,adult [id number] Dietary counseling and surveillance Hyperlipidemia Hypertension Peripheral [...] Falls, Shaky Reason for Visit BMI 28.0-28.9,adult [id number] Dietary counseling and surveillance Hyperlipidemia Hypertension Peripheral [...] on phone Reason for Visit BMI 28.0-28.9,adult [id number] Dietary counseling and surveillance Hyperlipidemia Hypertension Peripheral [...] Vitamin B 12 deficiency Weakness BMI 28.0-28.9,adult [id number] Dietary counseling and surveillance Hyperlipidemia Hypertension Peripheral neuropathy Type 2 diabetes mellitus Vitamin B 12 deficiency Chief Complaint E11.9 E78.5 E53.8 Amb Documentation brent on phone chest pains chest pains Amb Documentation Hospital follow up g72.9 g62.9 r79.89 g60.9 z11.3 e53.1 i70.91 d51.3 aflutter Multiple Falls, Shaky Amb Documentation brent on phone typical a flutter Reason for Visit BMI 28.0-28.9,adult [id number] Dietary counseling and surveillance Hyperlipidemia Hypertension Peripheral [...] Weakness Abnormal thyroid blood test BMI 28.0-28.9,adult [id number] Dietary counseling and surveillance Hyperlipidemia Hypertension Peripheral neuropathy Type 2 diabetes mellitus Vitamin B 12 deficiency Chief Complaint E11.9 E78.5 E53.8 Amb Documentation brent on phone chest pains chest pains Amb Documentation Hospital follow up g72.9 g62.9 r79.89 g60.9 z11.3 e53.1 i70.91 d51.3 aflutter Multiple Falls, Shaky Amb Documentation brent on phone typical a flutter typical a flutter [facility] [place] Reason for Visit BMI 28.0-28.9,adult [id number] Dietary counseling and surveillance Hyperlipidemia Hypertension Peripheral [...] Weakness Abnormal thyroid blood test BMI 28.0-28.9,adult [id number] Dietary counseling and surveillance Hyperlipidemia Hypertension Peripheral [...] a flutter typical [place] [facility] [place] G62.9 G60.9 R79.89 Z11.3 E53.1 I70.31 D51.3 Reason for Visit BMI 28.0-28.9,adult [id number] Dietary counseling and surveillance Hyperlipidemia Hypertension Peripheral [...] Weakness Abnormal thyroid blood test BMI 28.0-28.9,adult [id number] Dietary counseling and surveillance Hyperlipidemia Hypertension Peripheral [...] a flutter typical a flutter [facility] [place] G62.9 G60.9 R79.89 Z11.3 E53.1 I70.31 D51.3 g62.9 r79.89 g60.9 z11.3 e53.1 d51.3 Reason for Visit BMI 28.0-28.9,adult [id number] Dietary counseling and surveillance Hyperlipidemia Hypertension Peripheral [...] Weakness Abnormal thyroid blood test BMI 28.0-28.9,adult [id number] Dietary counseling and surveillance Hyperlipidemia Hypertension Peripheral neuropathy Type 2 diabetes mellitus Vitamin B 12 deficiency Hospital discharge follow-up Hypomagnesemia Chief Complaint g72.9 g62.9 r79.89 g 60.9 z11.3 e53.1 i70.91 d51.3 aflutter Multiple Falls, Shaky Amb Documentation brent on phone typical a flutter typical a flutter [facility] [place] G62.9 G60.9 R79.89 Z11.3 E53.1 I70.31 D51.3 g62.9 r79.89 g60.9 z11.3 e53.1 d51.3 M54.17 Reason for Visit Ambulatory dysfuncti on Hypomagnesemia Hypothyroid Type 2 diabetes mellitus with hyperglycemia Vitamin B 12 deficiency Weakness Abnormal thyroid blood test BMI 28.0-28.9,adult [id number] Dietary counseling and surveillance Hyperlipidemia Hypertension Peripheral neuropathy Type 2 diabetes mellitus Vitamin B 12 deficiency Hospital discharge follow-up Hypomagnesemia Chief Complaint g72.9 g62.9 r79.89 g 60.9 z11.3 e53.1 i70.91 d51.3 aflutter Multiple Falls, Shaky Amb Documentation brent on phone typical a flutter typical a flutter [facility] [place] up G62.9 G60.9 R79.89 Z11.3 E53.1 I70.31 D51.3 g62.9 r79.89 g60.9 z11.3 e53.1 d51.3 M54.17 R60.0 M79.671 r/o dvt Reason for Visit Ambulatory dysfuncti on Hypomagnesemia Hypothyroid Type 2 diabetes mellitus with hyperglycemia Vitamin B 12 deficiency Weakness Abnormal thyroid blood test BMI 28.0-28.9,adult [id number] Dietary counseling and surveillance Hyperlipidemia Hypertension Peripheral neuropathy Type 2 diabetes mellitus Vitamin B 12 deficiency Hospital discharge follow-up Hypomagnesemia Chief Complaint g72.9 g62.9 r79.89 g 60.9 z11.3 e53.1 i70.91 d51.3 aflutter Multiple Falls, Shaky Amb Documentation brent on phone typical a flutter typical a flutter [facility] [place] up G62.9 G60.9 R79.89 Z11.3 E53.1 I70.31 D51.3 g62.9 r79.89 g60.9 z11.3 e53.1 d51.3 M54.17 R60.0 M79.671 r/o dvt L97.511 L03.115 lumbosacral radiculopathy at s1 Reason for Visit Ambulatory dysfuncti on Hypomagnesemia Hypothyroid Type 2 diabetes mellitus with hyperglycemia Vitamin B 12 deficiency Weakness Abnormal thyroid blood test BMI 28.0-28.9,adult [id number] Dietary counseling and surveillance Hyperlipidemia Hypertension Peripheral neuropathy Type 2 diabetes mellitus Vitamin B 12 deficiency Hospital discharge follow-up Hypomagnesemia Chief Complaint aflutter Multiple Falls, Shaky Amb Documentation brent on phone typical a flutter typical a flutter [facility] [place] up G62.9 G60.9 R79.89 Z11.3 E53.1 I70.31 D51.3 g62.9 r79.89 g60.9 z11.3 e53.1 d51.3 M54.17 R60.0 M79.671 r/o dvt L97.511 L03.115 lumbosacral radiculopathy at s1 8 Month F/U Reason for Visit Ambulatory dysfuncti on Hypomagnesemia Hypothyroid Type 2 diabetes mellitus with hyperglycemia Vitamin B 12 deficiency Weakness Abnormal thyroid blood test BMI 28.0-28.9,adult [id number] Dietary counseling and surveillance Hyperlipidemia Hypertension Peripheral [...] 2024 11:14am Dietary counseling and surveillance [facility] 2023 11:14am Hyperlipidemia April 28, 2024 11:14am [...] 2024 11:14am Dietary counseling and surveillance [facility] 2023 11:14am Hyperlipidemia April 28, 2024 11:14am Hypertension April 28, 2024 11:14am Peripheral neuropathy April 28 11:14am Type 2 diabetes mellitus April 28, 2024 11:14am Vitamin B 12 deficiency April 28 024 11:14am Atrial fibrillation April 28, 2024 10:38pm Generalized weakness April 28, 2024 10:38pm Insulin dependent diabetes mellitus [facility] 2023 10:38pm TIA (transient ischemic attack) April 28, 2024 10:38pm Chief Complaint Admit Date Screening, Dysphagia February 14, 2024 12:30pm NEW elevated WBC April 14, 2024 9:30am irregular heart beat, dizziness, weaknes s April 27, 2024 2:18pm Follow Up 2 Weeks April 28, 2024 9:53am brent on phone April 28, 2024 11:14am Weakness April 28, 2024 10:38pm [facility] May 07 1:02pm Reason for Visit Admit Date High granulocyte count April 14 9:30am Secondary polycythemia April 14 9:30am High granulocyte count April 28 9:53am Secondary polycythemia April 28 9:53am BMI 32.0-32.9,adult April 28, 2024 11:14am Chronic kidney disease (CKD) stage G2/A2, mildly decreased glomerular filtr April 28, 2024 11:14am Dietary counseling and surveillance [facility] 2023 11:14am Hyperlipidemia April 28, 2024 11:14am Hypertension April 28, 2024 11:14am Peripheral neuropathy April 28 11:14am Type 2 diabetes mellitus April 28, 2024 11:14am Vitamin B 12 deficiency April 28 11:14am Atrial fibrillation April 28, 2024 10:38pm Generalized weakness April 28, 2024 10:38pm Insulin dependent diabetes mellitus [facility] 2023 10:38pm TIA (transient ischemic attack) April 28, 2024 10:38pm Cigarette nicotine dependence April 1:02pm Chief Complaint Admit Date NEW elevated WBC April 14, 2024 9:30am irregular heart beat, dizziness, weaknes s April 27, 2024 2:18pm Follow Up 2 Weeks April 28, 2024 9:53am brent on phone April 28, 2024 11:14am Weakness April 28, 2024 10:38pm [facility] May 07 1:02pm G45.9 [...] 2024 11:14am Dietary counseling and surveillance [facility] 2023 11:14am Hyperlipidemia April 28, 2024 11:14am Hypertension April 28, 2024 11:14am Peripheral neuropathy April 28 11:14am Type 2 diabetes mellitus April 28, 2024 11:14am Vitamin B 12 deficiency April 28 11:14am Atrial fibrillation April 28, 2024 10:38pm Generalized weakness April 28, 2024 10:38pm Insulin dependent diabetes mellitus [facility] 2023 10:38pm TIA (transient ischemic attack) [...] Weakness April 28, 2024 10:38pm [facility] May 07 1:02pm G45.9 [...] Weakness April 28, 2024 10:38pm [facility] May 07 1:02pm G45.9 [...] Weakness April 28, 2024 10:38pm [facility] May 07 1:02pm G45.9 [...] 2024 11:14am Dietary counseling and surveillance [facility] 2023 11:14am Hyperlipidemia April 28, 2024 11:14am Hypertension April 28, 2024 11:14am Peripheral neuropathy April 28 11:14am Type 2 diabetes mellitus April 28, 2024 11:14am Vitamin B 12 deficiency April 28 11:14am Atrial fibrillation April 28, 2024 10:38pm Generalized weakness April 28, 2024 10:38pm Insulin dependent diabetes mellitus [facility] 2023 10:38pm TIA (transient ischemic attack) [...] 2024 11:14am Dietary counseling and surveillance [facility] 2023 11:14am Hyperlipidemia April 28, 2024 11:14am Hypertension April 28, 2024 11:14am Peripheral neuropathy April 28 11:14am Type 2 diabetes mellitus April 28, 2024 11:14am Vitamin B 12 deficiency April 28 11:14am Atrial fibrillation April 28, 2024 10:38pm Generalized weakness April 28, 2024 10:38pm Insulin dependent diabetes mellitus [facility] 2023 10:38pm TIA (transient ischemic attack) [...] 15, 2024 1:46pm Insulin dependent diabetes mellitus [facility] 2024 1:46pm Lumbar spondylosis December 15, 2024 [...] 2025 1:23pm Vitamin B 12 deficiency January 05, 2 025 1:23pm Current every day smoker January 12, 2025 2:19pm Depression January 12, 2025 2:19pm Lesion of spleen January 12, 2025 2:19pm Reason for Referral Specialty Diagnoses / Procedures Referred By Contac t Referred To Contact Diagnoses Typical atrial flutter (Multi) Procedures ECG 12 Lead Jonas Ch MD [address] [place] [address] 2, [address] [address] Referral ID Status Reason Start Date Expiration Date V isits Requested Visits Authorized [id number] Authorized 11/13/2023 11/12/2024 1 1 Specialty Diagnoses / Procedures Referred By Contac t Referred To Contact Diagnoses Typical atrial flutter (Multi) Procedures Complete Pulmonary Function Test (Spirometry/DLCO/Lung Volumes) Jonas Ch MD [address] [place] [address] 2, [address] [address] Referral ID Status Reason Start Date Expiration Date V isits Requested Visits Authorized [id number] Pending Review 11/13/2023 11/12/2024 1 1 Specialty Diagnoses / Procedures Referred By Contac t Referred To Contact Radiology Diagnoses Typical atrial flutter (Multi) Procedures XR chest 2 views Jonas Ch MD [address] [facility] 2, [address] [address] Referral ID Status Reason Start Date Expiration Date Visits Requested Visits Authorized [id number] Authorized Perform Procedure 11/13/2023 11/12/2024 1 1 Specialty Diagnoses / Procedures Referred By Contac t Referred To Contact Cardiology Diagnoses Nonischemic cardiomyopathy (Multi) Procedures Follow Up In Cardiology Jonas Ch MD [address] [place] [address] 2, [address] [address] Roland Faust MD [address] [facility] 2, [address] [address] Referral ID Status Reason Start Date Expiration Date V isits Requested Visits Authorized [id number] Authorized 11/13/2023 11/12/2024 1 1 Specialty Diagnoses / Procedures Referred By Contac t Referred To Contact Cardiology Diagnoses Typical atrial flutter (Multi) Procedures Cardioversion External Jonas Ch MD [address] [facility] 2, [address] [place] [address] Referral ID Status Reason Start Date Expiration Date V isits Requested Visits Authorized [id number] Pending Review 10/07/2023 10/06/2024 1 1 Specialty Diagnoses / Procedures Referred By Contac t Referred To Contact Cardiology Diagnoses Typical atrial flutter (Multi) Procedures Follow Up In Cardiology Jonas Ch MD [address] [facility] 2, [address] [place] [address] Jonas Ch MD [address] [facility] 2, [address] [address] Referral ID Status Reason Start Date Expiration Date V isits Requested Visits Authorized [id number] Authorized 10/07/2023 10/06/2024 1 1 Reason LEFT FOOT INJURY Diagnosis 1 Type 2 diabetes ye itus with hyperglycemia (E11.65) Diagnosis 2 Injury of foot, left (S99.922A) Referral Organization [facility] Referring Provider First Name Angelique Referring Provider Last Name Yvonne Referring Provider Specialty Nurse Pract itioner Referred Organization [facility] Referred Provider Karl Fritz Referred Address ,[place], [place],[address] Referred Provider Specialty Podiatry - S urgical Chiropody Referral Priority Routine Referral Appointment Date 2023-01-09 General Notes Emerald Doshi 12/28 03:26:20 PM >SCHEDULED FOR 01/09/23 AT 10:15AM. PATIENT INFORMED. Additional Source Comments INFORMATION SOURCE (unrecogn ized section and content) DATE CREATED AUTHOR 10/21/2017 [facility] DATE CREATED AUTHOR AUTHOR'S ORGANIZ ATION 10/22/2017 [facility] DATE CREATED AUTHOR AUTHOR'S ORGANIZ ATION 02/16/2019 [facility] DATE CREATED AUTHOR AUTHOR'S ORGANIZ ATION 02/02/2022 [facility] DATE CREATED AUTHOR AUTHOR'S ORGANIZ ATION 11/16/2024 [facility] DATE CREATED AUTHOR AUTHOR'S ORGANIZ ATION 01/01/2025 [facility] DATE CREATED AUTHOR AUTHOR'S ORGANIZ ATION 01/20/2025 [facility] DATE CREATED AUTHOR AUTHOR'S ORGANIZ ATION 01/22/2025 [facility] REASON FOR VISIT (unrecogniz ed section and content) Reason Comments [facility] [place] [facility] [place] Reason Comments Peripheral Neuropathy Reason Comments Blood Pressure Check With ekg Specialty Diagnoses / Procedures Referred By Tahmina thurston Referred To Contact Cardiology Diagnoses Hypertension, unspecified type Procedures Follow Up In Cardiology Roland Faust MD [address] [facility] 2, [address] [address] Phone: tel: fax: Roland Faust MD [address] [facility] 2, [address] [address] Phone: tel: fax: Referral ID Status Reason Start Date Expiration Date V isits Requested Visits Authorized [id number] Authorized 03/09/2024 03/09/2025 1 1 Reason Comments Follow-up [facility] follow up Specialty Diagnoses / Procedures Referred By Tahmina thurston Referred To Contact Cardiology Diagnoses Typical atrial flutter (Multi) Procedures Follow Up In Cardiology Jonas Ch MD [address] [facility] 2, [address] [address] Jonas Ch MD [address] [facility] 2, [address] [address] Referral ID Status Reason Start Date Expiration Date V isits Requested Visits Authorized [id number] Authorized 10/07/2023 10/06/2024 1 1 Reason Comments cognitive decline Reason Comments Follow-up Medication change, A sherman d/c Specialty Diagnoses / Procedures Referred By Tahmina thurston Referred To Contact Cardiology Diagnoses Typical atrial flutter (Multi) Procedures Follow Up In Cardiology Roland Faust MD [address] [facility] 2, [address] [address] Roland Faust MD [address] [facility] 2, [address] [address] Referral ID Status Reason Start Date Expiration Date V isits Requested Visits Authorized [id number] Authorized 11/28/2023 11/27/2024 1 1 Specialty Diagnoses / Procedures Referred By Contac t Referred To Contact Neurology Diagnoses Carpal tunnel syndrome, bilateral upper limbs Procedures CT INJECTION THERAPEUTIC CARPAL TUNNEL CT KETOROLAC TROMETHAMINE INJ 1 CC STERILE SYRINGE&NEEDLE Oz Kincaid MD [address] [address] Oz Kincaid MD [address] [address] Referral ID Status Reason Start Date Expiration Date V isits Requested Visits Authorized [id number] Closed Perform Procedure 12/16/2023 06/13/2024 1 1 Reason Comments Follow-up 4 month with EKG. Pt denies c/o at this time. Specialty Diagnoses / Procedures Referred By Contac t Referred To Contact Cardiology Diagnoses Nonischemic cardiomyopathy (Multi) Procedures Follow Up In Cardiology Jonas Ch MD Traboulssi, Mourhaf, MD [address] [facility] 2, [address] [address] Phone: tel: fax: Referral ID Status Reason Start Date Expiration Date V isits Requested Visits Authorized [id number] Pending Review 11/13/2023 11/12/2024 1 1 Reason Comments cognitive decline Reason Comments Med Refill Reason Comments Follow-up 6 month, nonischemic cardiomyopathy Specialty Diagnoses / Procedures Referred By Contac t Referred To Contact Cardiology Diagnoses Nonischemic cardiomyopathy (Multi) Procedures Follow Up In Cardiology Roland Faust MD [address] [facility] 2, [address] [address] Phone: tel: fax: Referral ID Status Reason Start Date Expiration Date V isits Requested Visits Authorized [id number] Authorized 06/26/2024 06/26/2025 1 1 Care Teams [...] Status: Active Member Role Status Dates Jonas Yodre , DO Primary Care Provider Acti ve [...] End: September 14, 2023 Elizabeth Parra , [facility] Other Provider Active Sta rt: September [...] Star t: September 14, 2023 Elly Yoo , Other Provider Active Start : [...] Start: M ay 2023 Elizabeth Parra , [facility] Other Provider Active Sta rt: September [...] September 17, 2023 End: September 17, 2023 Systems Programmer Relationship Specialty Start Date End Date Sandra Keita DO [address] [facility] [place] [address] PCP - General Family Medicine 09/25/23 Team [...] Stoll MD Other Provider Active Start: M stephanie 2023 End: September 14, 2023 Jann Kaplan MD Other Provider Active Start: September 14, 2023 End: September 14, 2023 Cara Tenorio MD Other Provider Active Start: M ay 2023 End: September 14, 2023 Elizabeth Parra , [facility] Other Provider Active Sta rt: September [...] November 05, 2023 End: November 05, 2023 oJnas Ch MD Attending Franchesca hartley Referring Provider Active Start: November 05, 2023 End: November 05, 2023 Team Status: Active Member Role Status Dates Sandra Keita DO Primary Care Provider Active Start: November 10, 2023 Rl Villavicencio , Emergency Provider Active [...] 2023 End: November 12, 2023 Cash Aponte PhD Other Provider Active S tart: November 10, 2023 End: November 12, 2023 Jelly Tuttle DO Other Provider Active Start: November 10, 2023 End: November 12, 2023 John Murillo MD Other Provider Active Start : November 10, 2023 End: November 12, 2023 Lit Clark DO Other Provider Active Start: November 10, 2023 End: November 12, 2023 SHELDON Hollis-BC Other Provider Active Start: November 10, 2023 End: November 12, 2023 Roque Isidro DO Other Provider Active Start: November 10, 2023 End: November 12, 2023 Tracy Calvo APRN Other Provider Active St art: November 10, 2023 End: November 12, 2023 Tayler Medina NP-C Other Provider Active Sta rt: November 10, 2023 End: November 12, 2023 Jeanine Ibrahim APRN-STAFF RADIOLOGIST-C Other Provider Active Start: November 10, 2023 [...] January 15, 2024 End: January 15, 2024 Systems Programmer Relationship Specialty Start Date End Date Sandra Keita DO [address] [facility] [place] [address] PCP - General Family Medicine 01/09/23 Team Status: Inactive Member Role Status Dates Sandra Keita DO Primary Care Provide r, Attending Provider Active Start: February 03, 2024 End: February 03, 2024 Systems Programmer Relationship Specialty Start Date End Date Sandra Keita DO [address] [facility] [place] [address] PCP - General Family Medicine 01/09/23 Systems Programmer Relationship Specialty Start Date End Date Sandra Keita DO [address] [facility] [place] [address] PCP - General Family Medicine 01/09/23 Systems Programmer Relationship Specialty Start Date End Date Sandra Keita DO [address] [facility] [place] [address] PCP - General Family Medicine 01/09/23 Systems Programmer Relationship Specialty Start Date End Date Sandra Keita DO [address] [place] [address] PCP - General Family Medicine 01/09/23 Systems Programmer Relationship Specialty Start Date End Date Sandra Keita DO [address] [place] [address] PCP - General Family Medicine 09/25/23 Systems Programmer Relationship Specialty Start Date End Date Sandra Keita DO [address] [place] [address] PCP - General Family Medicine 01/09/23 Systems Programmer Relationship Specialty Start Date End Date Sandra Keita DO [address] [place] [address] PCP - General Family Medicine 01/09/23 Systems Programmer Relationship Specialty Start Date End Date Sandra Keita DO [address] [place] [address] PCP - General Family Medicine 01/09/23 Systems Programmer Relationship Specialty Start Date End Date Sandra Keita DO [address] [place] [address] PCP - General Family Medicine 09/25/23 Systems Programmer Relationship Specialty Start Date End Date Sandra Keita DO [address] [place] [address] [phone] PCP - General Family Medicine 01/09/23 Systems Programmer Relationship Specialty Start Date End Date Sandra Keita DO [address] [place] [phone] PCP - General Family Medicine 01/09/23 Systems Programmer Relationship Specialty Start Date End Date Sandra Keita DO [address] [place] [address] PCP - General Family Medicine 09/25/23 Systems Programmer Relationship Specialty Start Date End Date Sandra Keita DO [address] [place] [phone] PCP - General Family Medicine 01/09/23 Systems Programmer Relationship Specialty Start Date End Date Sandra Keita DO [address] [place] [address] PCP - General Family Medicine 01/09/23 Systems Programmer Relationship Specialty Start Date End Date Sandra Keita DO [address] [place] [address] PCP - General Family Medicine 01/09/23 Systems Programmer Relationship Specialty Start Date End Date Sandra Keita DO [address] [place] [address] [phone] PCP - General Family Medicine 01/09/23 Systems Programmer Relationship Specialty Start Date End Date Sandra Keita DO [address] [place] [address] [phone] PCP - General Family Medicine 01/09/23 Systems Programmer Relationship Specialty Start Date End Date Sandra Keita DO [address] [place] [address] PCP - General Family Medicine 01/09/23 Systems Programmer Relationship Specialty Start Date End Date Sandra Keita DO [address] [place] [phone] PCP - General Family Medicine 01/09/23 Systems Programmer Relationship Specialty Start Date End Date Sandra Keita DO [address] [place] [address] PCP - General Family Medicine 01/09/23 Systems Programmer Relationship Specialty Start Date End Date Sandra Keita DO [address] [place] [address] PCP - General Family Medicine 01/09/23 Team [...] May 25, 2024 End: May 25, 2024 Systems Programmer Relationship Specialty Start Date End Date Sandra Keita DO [address] [facility] [place] [address] PCP - General Family Medicine 09/25/23 Team Status: Inactive Member Role Status Dates Sandra Keita DO Primary Care Provider Active Start: April 28, 2024 End: April 28, 2024 Kourtneymesfin Jane APRN Attending Provider Active Start: March End: April 28, 2024 Systems Programmer Relationship Specialty Start Date End Date Sandra Keita DO [address] [facility] [place] [address] PCP - General Family Medicine 01/09/23 Team [...] October 01, 2024 End: October 01, 2024 Systems Programmer Relationship Specialty Start Date End Date Sandra Keita DO PCP - General Family Medicine 01/09/23 Systems Programmer Relationship Specialty Start Date End Date Sandra Keita DO PCP - General Family Medicine 01/09/23 Systems Programmer Relationship Specialty Start Date End Date Sandra Keita DO PCP - General Family Medicine 01/09/23 Systems Programmer Relationship Specialty Start Date End Date Sandra Keita DO [address] [place] [address] PCP - General Family Medicine 10/15/24 Systems Programmer Relationship Specialty Start Date End Date Sandra Keita DO [address] [place] [address] PCP - General Family Medicine 10/15/24 Systems Programmer Relationship Specialty Start Date End Date Sandra Keita DO [address] [place] [address] PCP - General Family Medicine 10/15/24 Systems Programmer Relationship Specialty Start Date End Date Sandra Keita DO [address] [place] [address] PCP - General Family Medicine 10/15/24 Team [...] November 16, 2024 End: November 16, 2024 Systems Programmer Relationship Specialty Start Date End Date Sandra Keita DO [address] [facility] [place] [address] PCP - General Family Medicine 10/15/24 Systems Programmer Relationship Specialty Start Date End Date Sandra Keita DO [address] [facility] [place] [address] PCP - General Family Medicine 10/15/24 Team Status: Active Member Role Status Dates Shantel Norton APRN PROTECTIVE OFFICER-C Primary Care Provider Active Team Status: Inactive Member Role Status Dates Shantel Norton APRN PROTECTIVE OFFICER-C Primary Care Provider Active Start: December 15, 2024 End: December 15, 2024 Shantel Norton APRN PROTECTIVE OFFICERElida Attending Provider Act [email or web address] Start: December 15, 2024 End: December 15, 2024 Systems Programmer Relationship Specialty Start Date End Date Sandra Keita DO [address] [place] [address] PCP - General Family Medicine 10/15/24 Team Status: Inactive Member Role Status Dates Samm Medina MD Attending Provider Active S tart: December 24, 2024 End: December 24, 2024 Shantel Norton APRN PROTECTIVE OFFICER-C Primary Care Provider Active Start: December 24, 2024 End: December 24, 2024 Systems Programmer Relationship Specialty Start Date End Date Shantel Norton APRN-PROP AND SCENERY MAKER [address] [place] [id number] PCP - General Family Medicine 12/30/24 Team Status: Active Member Role Status Dates Samm Medina MD Attending Provider Active S tart: December 31, 2024 Samm Medina MD Other Provider Active Start : December 31, 2024 Shantel Norton APRN PROTECTIVE OFFICER-C Primary Care Provider Active Start: December 312024 Team Status: Inactive Member Role Status Dates Shantel Norton APRN PROTECTIVE OFFICER-C Primary Care Provider Active Start: January 052024 End: January 05, 2025 Angelique Russell APRN Attending Provider Active Start: January 05, 2025 End: January 05, 2025 Team Status: Inactive Member Role Status Dates Shantel Norton APRN NP-Vamsi Primary Care Provider Active Start: December 282024 End: January 12, 2025 NITZA Palacios Attending Provider Active Start: December End: January 12, 2025 Systems Programmer Relationship Specialty Start Date End Date Sandra Keita DO [address] [facility] [place] [place] [address] PCP - General Family Medicine 10/15/24 Systems Programmer Relationship Specialty Start Date End Date Sandra Keita DO [address] [facility] [place] [address] PCP - General Family Medicine 10/15/24 Goals [...] BE BASED ON THE PRIMARY CLINICAL RECORDS. [facility] [employer] [facility]. provides no warranty or guarantee of the accuracy or completeness of information in this document.
== END 2025-01-28 14:26 | disposition home or self-care (01) ==
LOC: WC 14:26
PROVIDERS: Family Provider Family Medicine; PCP Family Medicine; Visit Provider Physician Assistant
DX: E11.621 Type 2 diabetes mellitus with foot ulcer (principal); L97.415 Non-pressure chronic ulcer of right heel and midfoot with muscle involvement without evidence of necrosis
CPT/HCPCS: G0463

== ENCOUNTER 2025-02-25 12:43 | Outpatient (OUT) | payer MEDICARE, MEDICAID, SELFPAY ==
--- OUTSIDE RECORDS SUMMARY | 2025-02-25 12:48 | XMS_ITS | Encounter Summary ---
Author Organization [facility] Address [address] [place], [place] [id number] Care Team Providers Care Customs Brokerage Manager Name Role Phone Darrell Weinstein Yao Primary Care Provider [phone] Nereida Castro MD Unavailable [phone] Source Comments In the event this information is protected by the Federal Confidentiality of Alcohol and Drug AbusePatient Records regulations: The Federal rules restrict any use of the information to criminally investigate or prosecute any alcohol or drug abuse patient.[facility] Encounter Details DateTypeDepartmentCare Team (Latest Contact Info)Ebdddytguur98/23/2025Telephone Cancer Appts [address] [place] [address] Milly Cordoba MD [address] [place], [place] [id number] Social History Tobacco UseTypesPacks/DayYears UsedDateSmoking Tobacco: Every [id number] Started: 1972Smokeless Tobacco: NeverAlcohol UseStandard Drinks/WeekCommentsNot Currently0 (1 standard drink = 0.6 oz pure alcohol)Area Deprivation IndexAnswer Date RecordedNational Score (1-100), lower number is lower riskNot on file 04/03/2020State Score (1-10), lower number is lower riskNot on file04/03/2020 Data from: https://www.neighborhoodatlas.[facility]/. Last address used for calculationNot on file04/03/2020CommentsNoSex and Gender Information ValueDate RecordedSex Assigned at BirthNot on fileLegal LrxVyujnx67/02/2012 10:19 AM ESTGender IdentityNot on fileSexual OrientationNot on filedocumented as of this encounter Miscellaneous Notes * Telephone Encounter - Sarah Vizcaino - 02/18/2025 10:34 AM EDT I called Dr Castro office [phone] and spoke with Summer. Summer states [facility] our call per Farida REFINISHER patient needs Colposcopy with biopsy and would like this to be done MYLES to have results by patients consult appointment at our office with Dr Cordoba on 03/10. Per Summer she will call our office back after Dr Castro reviews, to let our office know how Dr Castro will proceed with this patient Summer states if Dr Castro proceeds with procedure, their office will call patient to schedule and call our office with date of procedure. I gave Summer our [place] office phone number to call back with any updates and also provided her with Dr Cordoba [place] [phone] Castro to call if she has any questions for Farida or Dr Cordoba regarding this patient. Sarah Kennedy * Telephone Encounter - Sarah Vizcaino - 02/18/2025 10:34 AM EDT ----- Message from Shantel Sanabria sent at 02/18/2025 10:06 AM EDT ----- Can someone please call Dr. Nereida Castro office to get this colposcopy with biopsies scheduled? Thanks! Shantel ----- Message ----- From: Farida Sinclair APRN.CNP Sent: 02/17/2025 12:43 PM EDT To: Shantel Lowe Thanks, so the plot thickens. The pap requires a colposcopy and biopsies. Please ask Dr. Castro to get that done MYLES so we can have results by the consult. Dr. Best can give opinions on management of all. I have a feeling the patient will need a LEEP. We may still see the patient. Thanks! Farida ----- Message ----- From: Shantel Winkler Sent: 02/12/2025 9:14 AM EDT To: Milly Cordoba MD; Farida Sinclair, # I scanned the last couple pap results. ----- Message ----- From: Farida Sinclair, ASSISTANT PROFESSOR IN FAMILY STUDIES.FIREWORKS ASSEMBLY SUPERVISOR Sent: 02/11/2025 3:41 PM EDT To: Milly Cordoba MD; Shantel Gutierrez # Hi all, path review back, patient just has benign warts. However I don't see a pap result from thatvisit, am I missing it? 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 She might need something with her cervix. Can we please get her pap? If everything is normal she doesn't need us unless Dr. Castro needs surgical help. Thanks. Farida documented in this encounter Plan of Treatment DateTypeDepartmentCare Team (Latest Contact Info)Ypdwujbvacu41/12/2025 11:00 AM ESTVisit (SP) Office Gynecology Oncology [address] [place] [address] [place] [address] Milly Cordoba MD [address] [place] [address] Other Specified noninflammatory disorders of vaginadocumented as of this encounter Visit Diagnoses Not on filedocumented in this encounter Care Teams Team MemberRelationshipSpecialtyStart DateEnd Date Darrell Weinstein [address] [facility] [address] [place] [phone] PCP - GeneralFamily Medicine11/06/18 Nereida Castro MD [address] [address] ReferringObstetrics11/06/18documented as of this encounter
--- OUTSIDE RECORDS SUMMARY | 2025-02-25 12:48 | XMS_ITS | Clinical Summary ---
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 (REFER TO PRESCRIPTION NOTES).12/21/2022ctive Toujeo SoloStar 300 UNIT/ML injection inject 20 units subcutaneously as xhaudupn29/16/2023ctive Droplet Pen [place] 32G X 4 MM misc use 1 PEN NEEDLE to inject MEDICATION subcutaneously five times a day02/19/2022 Active omeprazole (PriLOSEC) [address] capsule 01/02/2023ctive Ozempic, 1 MG/DOSE, 4 MG/3ML solution pen-injector Administer 1mg subcutaneously once flptyh4412/10/2022ctive simvastatin (Zocor) 40 MG tablet Take 40 mg by mouth at sfhqfrf7612/04/2022ctive Jardiance 25 MG take 1 tablet orally once dailyActive Docusate Sodium (DSS) 100 MG capsule Take 100 mg by mouth in the morning and 100 mg in the evening.06/12/2023ctive folic acid (Folvite) 1 MG tablet Take 1,000 mcg by mouth Daily10/16/2023ctive Eliquis 5 MG tablet Take 5 mg by mouth in the morning and 5 mg before bedtime.Active aspirin 81 MG EC tablet Take 81 mg by mouth in the morning.Active metFORMIN (Glucophage) 500 MG tablet Take 500 mg by mouth08/26/2023ctive cyanocobalamin (Vitamin B-12) 2500 MCG tablet 11/14/2023ctive magnesium oxide (Mag-Ox) 400 (240 Mg) MG tablet Take 400 mg by mouth in the morning and 400 mg before bedtime.01/02/2024ctive carvedilol (Coreg) 12.5 MG tablet Take 12.5 mg by mouth in the morning and 12.5 mg in the evening. Take with meals.tive donepezil (Aricept) 10 MG tablet Indications:Cognitive decline2 tabs QAM 60 tablet 5Active memantine (Namenda) 10 MG tablet Indications:Cognitive decline1 tab BID 60 tablet 5Active nortriptyline (Pamelor) 25 MG capsule Indications:Neurogenic painTake 1 capsule (25 mg) by mouth at bedtime 30 capsule tive pregabalin (Lyrica) 300 MG capsule Indications:Neurogenic painTAKE 1 CAPSULE BY MOUTH TWICE A DAY 60 capsule 5Active sertraline (Zoloft) 50 MG tablet Take 50 mg by mouth Daily01/12/2025tive terconazole (Terazol 7) 0.4 % vaginal cream Indications:Vaginal yeast infectionInsert 1 applicator into the vagina at bedtime for 7 days 45 g Expired Active Problems ProblemNoted DateDiagnosed DateWeakness of both lower tzzlpjqzbyj31/10/2025 Overview (10/06/2024): --- multifactorial, including PN G62.9, [...] redo spinal surgery consult. TIA (transient ischemic attack)05/13/20242481Gmcydodvgzpfcz52/10/2024 Assessment & Plan (04/07/2024 2:16 PM EST): Consult haematology. Cognitive mkulydj7902/25/2024 Assessment & Plan (01/19/2025 4:35 PM EDT): (Continue current regimen.) Assessment & Plan (10/06/2024 2:30 PM EDT): (Continue current regimen.) Assessment & Plan (07/21/2024 3:08 PM EDT): (Continue current regimen.) Get [facility] records - neuro consults, EEG, MR, carotids, echo, discharge summary. Assessment & Plan (04/07/2024 2:16 PM EST): Pt to retry donepezil 15 qam (or 10/5). Assessment & Plan (02/25/2024 2:59 PM EDT): Add memantine 10 -> bid. Then add donepezil 10, titrate. Handout. Get MR images transferred to [facility] PACS for my review. Guyon syndrome, unspecified izzwtegjpv53/16/2024 Overview (12/13/2023): --- bilateral. Assessment & Plan (01/19/2025 4:35 PM EDT): (Continue avoiding compression.) Assessment & Plan (10/06/2024 2:30 PM EDT): (Continue avoiding compression.) Assessment & Plan (07/21/2024 3:08 PM EDT): (Avoid compression.) Assessment & Plan (04/07/2024 2:16 PM EST): PO nwytmoyv80/02/2024 Assessment & Plan (02/25/2024 2:43 PM EDT): Get Dr. Gonzalez's note (2nd request). Assessment & Plan (01/07/2024 1:44 PM EDT): Get rheum note. Assessment & Plan (12/12/2023 2:49 PM EDT): Consult Drs. Vang/Lisa - PO positive, titer increasing, but subtests neg. Known peripheral neuropathy, worsening. Get full set of labs ([facility]). We have some but not all - find out why. For example 2nd PO () and its subtests were never received, neither on paper, nor electronically. Lumbosacral radiculopathy at S1011/29/2023 Assessment & Plan (01/07/2024 1:36 PM EDT): Consult spine surg - pt requested Dr. Flor. Assessment & Plan (12/12/2023 2:45 PM EDT): Pending MR. Notify me when done. Assessment & Plan (11/29/2023 3:05 PM EDT): MR L-spine. [facility] suggest L S1 radiculopathy. Likely will need neurosurgery consult. Adverse effect of alpha-/02/2024Vitamin E qtosmmkazo58/02/2024 Assessment & Plan (11/29/2023 3:06 PM EDT): Add MVI (for Vitamin E). Or if already on MVI, add Vit E separately, 2/week. Chronic low back pain without hnxsvezd38/10/5160Tcyaovooaru01/10/2024Cervical paraspinal muscle spasm10/29/2023 Assessment & Plan (01/19/2025 4:35 PM EDT): [...] to neck as well.) Carpal tunnel syndrome, hxhvssnek22/02/2024 Overview (10/06/2024): --- causing hand weakness R29.898. [...] EDT): Restart splint use. [facility] BUE. (2nd) Tdznhaeclrgapv38/02/2024 Assessment & Plan (11/29/2023 3:06 PM EDT): Pt reports 2nd PO is high 1:320 but I don't see it in the labs. Let's make sure we get this. May need rheumatology consult. Neuropathy panel II. Assessment & Plan (10/29/2023 3:17 PM EDT): Redo neurop panel. Diabetic peripheral tchegizbrx42/02/6285R39 cyzspadzdr86/02/2024 Assessment & Plan (01/19/2025 4:35 PM EDT): [...] are drawn. Redo B12 panel 8 w. Vlniwkiwculq23/02/2024Lumbar paraspinal muscle spasm10/29/2023 Assessment & Plan (01/07/2024 1:39 PM EDT): Add cyclobenzaprine 10 hs, may incr to 20 hs. (Continue PT.) Assessment & Plan (12/12/2023 2:48 PM EDT): (Completion of ongoing PT, then home PT.) Assessment & Plan (10/29/2023 3:22 PM EDT): PT Neurogenic pain10/29/2023 Assessment & Plan (04/07/2024 2:16 PM EST): [...] wasting and atrophy, not elsewhere classified, multiple sites10/29/2023 Assessment & Plan (10/29/2023 3:18 PM EDT): Myopathy panel. Leg pain, yclowtjad03/02/2024 Assessment & Plan (10/29/2023 3:20 PM EDT): XR L-s 6 v. [facility] BLE. (First) Resolved Problems ProblemNoted DateDiagnosed DateResolved DateOSA (obstructive sleep apnea) Encounters DateTypeDepartmentCare JoxmQmnthipurdg97/23/2025Telephone [facility] [address] [place] [phone] Nereida Castro MD Biopsy (Appt needed )02/09/2025 12:30 PM EDTOffice Visit [facility] [address] [place] [address] Nereida Castro MD Encounter for gynecological examination; Vaginal ntajqb5702/09/20258337Qknauy93/14/2025Results Follow-Up [facility] [address] [place] [address] Nereida Castro MD MISCELLANEOUS SMEAR JLMMUOVV32/09/2025Results Follow-Up [facility] [place] [place] [address] [place] [phone] Nereida Castro MD Pathology Report, IGP, APT HPV,RFX 16/18,45, HPV Genotypes 16/18,45 Reflex 02/02/2025 1:30 PM EDTOffice Visit [facility] [address] [place] [phone] Nereida Castro MD Encounter for gynecological examination; Vaginal lesion; Encounter for gynecological examination without abnormal finding; Encounter for screening for cervical cancer; Breast cancer screening by utxgbrqqw85/07/2025Orders Only [facility] Department Unsolicited Nereida Castro MD 02/02/20251719Irmbxi34/30/2025Telephone [facility] [address] [place] [address] Nereida Castro MD 01/19/2025 4:00 PM EDTOffice Visit [facility] [place] [facility] [address] [place] [address] Luan Kincaid MD Weakness of both lower extremities (Primary Dx); Carpal tunnel syndrome, bilateral; Cognitive decline; Cervical paraspinal muscle spasm; B12 deficiency; Guyon syndrome, unspecified vwybdlvgbu03/23/2025amboo flowsheet [facility] [address] [place] [address] Luan Kincaid MD 01/19/20256606Jhgbuc84/04/2025 4:00 PM EDTAncillary Procedure [facility] [address] [facility] [facility] [address] [place] [address] Lumbosacral radiculopathy at L5; Weakness of both lower extremities; Leg pain, mdfrucwji41/04/3491Bzvlpl82/22/2025 1:15 PM EDTProcedure Visit [facility] [place] [facility] [address] [facility] [address] [place] [address] Luan Kincaid MD Numbness (Primary Dx); Paresthesias; Pain in both lower extremities; Lumbosacral radiculopathy at L512/18/2024Orders Only [facility] [address] [facility] [address] [place] [address] Luan Kincaid MD Lumbosacral radiculopathy at L5; Weakness of both lower extremities; Leg pain, bpntpssre63/22/6921Twogdd38/15/2025 1:15 PM EDTProcedure Visit [facility] [place] [facility] [address] [facility] [address] [place] [address] Luan Kincaid MD Hand weakness (Primary Dx); Carpal tunnel syndrome, /15/7666Lsxihr76/04/2025Telephone [facility] [address] [place] [address] Maureen Fritz DPM Error (VOID this visit)from Last 3 Months Family History Medical HistoryRelationNameCommentsMental illnessDaughterCancerFatherHeart diseaseFatherStrokeFatherHeart diseaseMotherHypertensionMotherStrokeMother DiabetesSiblingBipolar disorderSister 1DiabetesSonRelationNameStatusComments Brother 1AliveBrother 2AliveDaughterAliveFatherDeceasedMaternal Grandfather DeceasedMaternal GrandmotherDeceasedMotherDeceasedPaternal GrandfatherDeceased Paternal GrandmotherDeceasedSiblingAliveSister 1AliveSister 2AliveSonAlive Social History Tobacco UseTypesPacks/DayYears UsedDateSmoking Tobacco: Every RegDsyclldmdr484.8 Started: 1975Smokeless Tobacco: Current Tobacco Cessation:Ready to Q uit: Not Asked; Counseling Given: Not Answered Comments:Smokes 11-20 cigs per day Alcohol UseStandard Drinks/WeekCommentsNever0 (1 standard drink = 0.6 oz pure alcohol)caffeine intake: occasionalCommentsNoSex and Gender Information ValueDate RecordedSex Assigned at BirthNot on fileLegal KsiKrutds54/15/2023 8:02 PM EDTGender IdentityNot on fileSexual OrientationNot on file Last Filed Vital Signs Vital SignReadingTime TakenCommentsBlood Wcgorodz101/7410 12:41 PM EDT Sugtd277602/25/2024 1:55 PM EDTTemperature--Respiratory Rate--Oxygen Saturation-- Inhaled Oxygen Concentration--Knkbck64 kg (194 lb)02/09/2025 12:41 PM EDTHeight 170.2 cm (5' 7 )02/02/2025 1:19 PM EDTBody Mass Index30.381 1:19 PM EDT Plan of Treatment DateTypeDepartmentCare Team (Latest Contact Info)Cwuhyiqlxrk35/24/2026 4:00 PM EDTOffice Visit [facility] [address] [place] [address] Luan Kincaid MD [address] [facility] [address] [place] [address] 08/10/2025 1:15 PM EDTOffice Visit [facility] [address] [place] [address] Nereida Castro MD [address] [place] [address] Procedures Procedure NamePriorityDate/TimeAssociated DiagnosisCommentsPATHOLOGY REPORT Tbzcxcz0102/02/2025 2:47 PM EDT Vaginal lesion HPV GENOTYPES 16/18,45 TRNRNCFvubxho29/07/2025 12:00 AM EDT MISCELLANEOUS SMEAR MXJCXSMXMrvfqmp60/07/2025 12:00 AM EDT IGP, APT HPV,RFX 16/18,94Gdyylzp66/07/2025 12:00 AM EDT Encounter for gynecological examination without abnormal finding Encounter for screening for cervical cancer MR LUMBAR SPINE WO NQXINMMCKfrllnd71/04/2025 4:24 PM EDT Lumbosacral radiculopathy at L5 Weakness of both lower extremities Leg pain, bilateral from Last 3 Months Results * Pathology Report (02/02/2025 2:47 PM EDT)ComponentValueRef RangeTest Method Analysis TimePerformed AtPathologist SignatureMaterial Submitted:Comment [facility]PComment: Material submitted: ?. vulva - VULVA Clinician Provided GFX03TwluvztTVBDWEHZgbippr: Clinician provided ICD-10: N89.8 Diagnosis:CommentLABCORPComment: Diagnosis: VULVA, BIOPSY: - MULTIPLE FRAGMENTS OF BENIGN POLYPOID VULVAR EPITHELIAL MUCOSA WITH HYPERPLASIA, VASCULAR CONGESTION AND CHRONIC INFLAMMATION. - NEGATIVE FOR FUNGAL ORGANISMS, ATYPIA, AND MALIGNANCY. SMI ??02/04/2025 ??0846 Local Electronically Signed:CommentLABCORPComment: Electronically signed: ? . Kemra Bella MD, Pathologist Gross Description:CommentLABCORPComment: Gross description: ? . RECEIVED IN FORMALIN LABELED WITH THE PATIENTS NAME AND VULVA AND CONSISTS OF TWO UNORIENTED IRREGULAR PIECES OF AGARWAL BROWN NODULAR SKIN MEASURING 0.6 X 0.5 X 0.3 CM AND 0.5 X 0.5 X 0.2 CM. INKED AT THE RESECTION MARGIN (ONE INKED IN BLACK AND ANOTHER INKED IN BLUE), BISECTED AND SUBMITTED ENTIRELY IN ONE CASSETTE. MZH/BXS ??02/03/2025 ??1504 Local Pathologist Provided LAI03RmegyopDXFNKJCQbcuswv: Pathologist provided ICD-10: N90.89 CPTCommentLABCORPComment: CPT ?. 890058 Specimen (Source)Anatomical Location / LateralityCollection Method / Volume Collection TimeReceived TimeOtherTopography unknown / Hujndsh1302/02/2025 2:47 PM EDT1omment:Other Vulva Print requ Narrative [facility] - 02/04/2025 10:07 AM EDT Performed at: 01 - [facility] [place] [address] [place] [address] ??[id number] Inventory Taker: Kemar Bella MD, Phone: ??[phone] Performed at: ??02 - [address] ??[id number] Inventory Taker: Jason Nation MD, Phone: ??[phone] Performed at: ??03 - [facility] [address] [place] [address] ??[id number] Inventory Taker: Kemar Bella MD, Phone: ??[phone] Specimen Comment: [id number] Specimen Comment: No. of containers..01 Tissue Authorizing ProviderResult TypeResult StatusNereida Castro MDLAB PATHOLOGY ORDERABLESFinal ResultPerforming OrganizationAddressCity/State/ZIP CodePhone Number [facility] * MISCELLANEOUS SMEAR CYTOLOGY (02/02/2025 12:00 AM EDT)ComponentValueRef Range Test MethodAnalysis TimePerformed AtPathologist SignatureSource:CommentLABCORP Comment:VULVAClinician Provided ICD10:CommentLABCORPComment: N89.8 Z01.419 Z12.4 DIAGNOSIS:CommentLABCORPComment: VULVA INCONCLUSIVE. ATYPICAL SQUAMOUS CELLS OF UNDETERMINED SIGNIFICANCE (ASC-US) (VULVAR). FUNGAL ORGANISMS ARE PRESENT. Recommendation:CommentLABCORPComment:Suggest follow up as clinically appropriate.Pathologist Provided ICD10:CommentLABCORPComment:R87.69Signed out by:CommentLABCORPComment:Eldon Madera MD, PathologistPerformed by:Comment LABCORPComment:Carmelita Reese, Director Metabolism (ASC)Gross description:Comment LABCORPComment: 20ML, LT WHITE, CLOUDY /LCS ??02/05/2025 ??0740 Local Specimen (Source)Anatomical Location / LateralityCollection Method / Volume Collection TimeReceived Time Narrative [facility] - 02/08/2025 1:07 PM EDT Performed at: 01 - [facility] [place] [place] ??[id number] Inventory Taker: Savi Cai MD, Phone: ??[phone] Specimen Comment: No. of containers..01 ThinPrep Vial Authorizing ProviderResult TypeResult StatusNereida Castro MDLAB BLOOD ORDERABLESFinal ResultPerforming OrganizationAddressCity/State/ZIP CodePhone Number [facility] * (ABNORMAL) IGP, APT HPV,RFX 16/18,45 (02/02/2025 12:00 AM EDT)ComponentValue Ref RangeTest MethodAnalysis TimePerformed AtPathologist SignatureDiagnosis: Comment(A)[facility]ABCORPComment: EPITHELIAL CELL ABNORMALITY. LOW GRADE SQUAMOUS INTRAEPITHELIAL LESION (LSIL). FUNGAL ORGANISMS MORPHOLOGICALLY CONSISTENT WITH SHERON SPECIES ARE PRESENT. Specimen Adequacy:CommentLABCORPComment:Satisfactory for evaluation. No endocervical component is identified.Clinician Provided ICD10:CommentLABCORP Comment: Z01.419 Z12.4 Performed By:CommentLABCORPComment:Jolly Kennedy, Director Metabolism (ASCP) Electronically Signed By:CommentLABCORPComment:Valery Varela MD, Pathologist Cyto Comments.LABCORPPathologist Provided ICD10:CommentLABCORPComment:R87.612, R87.5Note:CommentLABCORPComment: The Pap smear is a screening test designed to aid in the detection of premalignant and malignant conditions of the uterine cervix. ??It is not a diagnostic procedure and should not be used as the sole means of detecting cervical cancer. ??Both false-positive and false-negative reports do occur. Test Methodology:CommentLABCORPComment: This liquid based ThinPrep(R) pap test was interpreted using the Zet Universe(R) Genius(TM) Cervical Algorithm whole slide imaging system. HPV AptimaPositive(A)NegativeLABCORPComment: This nucleic acid amplification test detects fourteen high-risk HPV types (16,18,31,33,35,39,45,51,52,56,58,59,66,68) without differentiation. Specimen (Source)Anatomical Location / LateralityCollection Method / Volume Collection TimeReceived TimeVaginal Fluid Narrative [facility] - 02/08/2025 8:07 PM EDT Performed at: - [address] ??[id number] Inventory Taker: Savi Cai MD, Phone: ??[phone] Performed at: ?? - [address] ??[id number] Inventory Taker: Savi Cai MD, Phone: ??[phone] Specimen Comment: Source.............Cervix Specimen Comment: No. of containers..01 ThinPrep Vial Authorizing ProviderResult TypeResult StatusNereida THOMAS BLOOD ORDERABLESFinal ResultPerforming OrganizationAddressCity/State/ZIP CodePhone Number [facility] * (ABNORMAL) HPV Genotypes 16/18,45 Reflex (02/02/2025 12:00 AM EDT)Component ValueRef RangeTest MethodAnalysis TimePerformed AtPathologist SignatureHPV Genotype 16Positive(A)NegativeLABCORPHPV Genotype 18,45NegativeNegativeLABCORP Specimen (Source)Anatomical Location / LateralityCollection Method / Volume Collection TimeReceived Time Narrative [facility] - 02/08/2025 8:07 PM EDT Performed at: - [address] ??[id number] Inventory Taker: Savi Cai MD, Phone: ??[phone] Authorizing ProviderResult TypeResult StatusNereida THOMAS CYTOLOGY ORDERABLESFinal ResultPerforming OrganizationAddressCity/State/ZIP CodePhone Number [facility] * MR lumbar spine wo contrast (12/31/2024 4:24 PM EDT)Anatomical Region LateralityModalitySpine, L-spineMagnetic ResonanceSpecimen (Source)Anatomical Location / LateralityCollection Method / VolumeCollection TimeReceived Time 01/01/2025 9:52 AM EDT Impressions 01/01/2025 10:01 [...] stability. ELECTRONICALLY SIGNED BY: Almas Reeves DO Authorizing ProviderResult TypeResult StatusMark D Codi VARGASAndre MRI PROCEDURESFinal Result from Last 3 Months Insurance Care Teams Team MemberRelationshipSpecialtyStart DateEnd Date Debbie DO Sandra [address] [facility] [place] [place] [address] PCP - GeneralFamily Medicine10/15/24
--- OUTSIDE RECORDS SUMMARY | 2025-02-25 12:48 | XMS_ITS | Clinical Summary ---
Author Organization [facility] Address [address] [place] [address] Phone Care Team Providers Care Animal Rehabilitator Name Role Phone Shantel Norton APRN-HEELER Primary Care Pro vider Allergies Active AllergyReactionsCriticalityNoted DateCommentsSulfa (Sulfonamide Antibiotics)GI intolerance,Unknown,Nausea/esnsojne87/30/2019 Medications MedicationSigDispense QuantityRefillsLast FilledStart DateEnd DateStatus semaglutide (Ozempic) 1 mg/dose (4 mg/3 mL) pen injector 2 mg 1 (one) time per week.12/10/2022ctive omeprazole (PriLOSEC) [address] capsule Take 1 capsule (20 mg) by mouth once daily in the morning. Take before meals. 01/02/2023ctive aspirin 81 mg EC tablet Take 1 tablet (81 mg) by mouth once daily.Active empagliflozin (Jardiance) 25 mg Take 1 tablet (25 mg) by mouth once daily.Active docusate sodium (Colace) 100 mg capsule Take 1 capsule (100 mg) by mouth 2 times a day.Active metFORMIN (Glucophage) 500 mg tablet Take 1 tablet (500 mg) by mouth 2 times daily (morning and late afternoon). Active apixaban (Eliquis) 5 mg tablet Indications:Typical atrial flutter (Multi)Take 1 tablet (5 mg) by mouth 2 times a day. 180 tablet ctive folic acid (Folvite) 1 mg tablet 1 tablet (1 mg) once daily.10/16/2023ctive insulin glargine (Toujeo Solostar- 1 unit dial) 300 unit/mL (1.5 mL) injection 20 Units.12/12/2022ctive HumaLOG KwikPen Insulin 100 unit/mL injection inject subcutaneously before meals and at bedtime 1:50 CORRECTIVE SCALE (EXPECT UP TO 20 UNITS/DAY08/26/2023ctive furosemide (Lasix) 20 mg tablet Indications:Shortness of breath,Edema, unspecified typeTake 1 tablet (20 mg) by mouth every other day. 45 tablet 5005/07/2025ctive simvastatin (Zocor) 20 mg tablet Indications:HypercholesteremiaTake 1 tablet (20 mg) by mouth once daily. 90 tablet ctive magnesium oxide (Mag-Ox) 400 mg tablet Take 1 tablet (400 mg) by mouth 2 times a day.Active donepezil (Aricept) 10 mg tablet Take 1 tablet (10 mg) by mouth 2 times a day.Active memantine (Namenda) 10 mg tablet Take 1 tablet (10 mg) by mouth 2 times a day.Active carvedilol (Coreg) 12.5 mg tablet Indications:Nonischemic cardiomyopathy (Multi)Take 1 tablet (12.5 mg) by mouth 2 times daily (morning and late afternoon). 180 tablet 6Active carvedilol (Coreg) 12.5 mg tablet Indications:Hypertension, unspecified typeTake 1 tablet (12.5 mg) by mouth 2 times daily (morning and late afternoon). 180 tablet /Discontinued Active Problems ProblemNoted DateDiagnosed DateObesity (BMI 30-39.9)12/16/2023Typical atrial lrpoxit0210/07/2023Nonischemic lbtzexfauexilu22/10/6832Rucmydmm18/21/2024 Overview (09/17/2023): Last Assessment & Plan: Assessment: on Actos, metformin and Humalog. States BG in Am 110-140, Last A1C- 6.5 Tytrcuukityxrftvpk81/21/2024 Overview (09/17/2023): Last Assessment & Plan: Assessment: on statin Chnyvrsfljyf80/21/2024 Overview (09/17/2023): Last Assessment & Plan: Assessment: controlled on Lisinopril Current gvmubo2109/17/2023 Overview (09/17/2023): Last Assessment & Plan: Assessment: Current 40 pack year Resolved Problems ProblemNoted DateDiagnosed DateResolved DateHigh risk medication use11/13/2023 12/30/2024MI 28.0-28.9,adult/ Encounters DateTypeDepartmentCare JzzmFbnkumcmsed44/16/2025Refill [address] [phone] Roland Faust MD Hypertension, unspecified type; Nonischemic cardiomyopathy (Multi)12/30/2024 1:40 PM EDTOffice Visit [address] [phone] Roland Faust MD Typical atrial flutter (Multi) (Primary Dx); Nonischemic cardiomyopathy (Multi); Hypertension, unspecified type; Hypercholesteremia; Obesity (BMI 30-39.9); Current smoker Discharge Disposition: Home12/30/20243961Tthstt80/30/2025Scanned Document [facility] [address] [place] [phone] Scanning, Generic Provider from Last 3 Months Family History Medical HistoryRelationNameCommentscabgFatherHeart failureMotherheart stent MotherRelationNameStatusCommentsFatherMother Social History Tobacco UseTypesPacks/DayYears UsedDateSmoking Tobacco: Every DayCigarettes Smokeless Tobacco: Never Tobacco Cessation:Ready to Q uit: No; Counseling Given: Yes Alcohol UseStandard Drinks/WeekCommentsNever0 (1 standard drink = 0.6 oz pure alcohol)CommentsUnknownSex and Gender InformationValueDate RecordedSex Assigned at BirthNot on fileLegal ZiiDnjrtg06/02/2023 3:01 AM EDTGender Identity Not on fileSexual OrientationNot on file Last Filed Vital Signs Vital SignReadingTime TakenCommentsBlood Kqvqlhra146/70012/30/2024 1:47 PM EDT Vnyft5515/03/2025 1:47 PM EDTTemperature--Respiratory Rate--Oxygen Saturation-- Inhaled Oxygen Concentration--Pmktvf22.4 kg (197 lb)12/30/2024 1:47 PM EDTHeight 170.2 cm (5' 7 )12/30/2024 1:47 PM EDTBody Mass Index30.85012/30/2024 1:47 PM EDT Plan of Treatment DateTypeDepartmentCare Team (Latest Contact Info)Pypwvieyrsv53/21/2026 3:10 PM EDTOffice Visit [facility] [address] [facility] [address] [place] [address] Roland Faust MD [address] [facility] [address] [place] [address] Health MaintenanceDue DateLast DoneCommentsCT Sybnlenuhdio15/30/1958Colonoscopy 1957Colorectal Cancer Phghlrdyl21/30/1958Diabetes: Hemoglobin A1C 1957Diabetes: Urine Protein Irhtrerlr62/30/1958FIT-DNA (Cologuard) 1957FIT1957Lipid Panel1957Medicare Annual Wellness Visit (AWV) 1955 6608Gvdarazsdlfic11/30/1958Diabetes: Retinopathy Kiuwuuwea44/30/1968 Hepatitis C Rvcgqgmlz35/30/1976Pneumococcal Vaccine (1 of 2 - PCV)1976 DTaP/Tdap/Td Vaccines (1 - Tdap)11/26/1979RSV High Risk: (Elderly (60+) or Population) (1 - Risk 50-74 years 1-dose series)11/26/2007Zoster Vaccines (1 of 2)11/26/20078741Guodklwhy80/12/202202/1Bone Density Scan 2022TSH Level07507/06/2023Influenza Vaccine (#1)5COVID-19 Vaccine ( season)2024MMR HriktilkFrolyjdcy63/05/2002HIB VaccinesAged OutNo longer eligible based on patient's age to complete this topic HPV VaccinesAged OutNo longer eligible based on patient's age to complete this topicHepatitis A VaccinesAged OutNo longer eligible based on patient's age to complete this topicHepatitis B VaccinesAged OutNo longer eligible based on patient's age to complete this topicIPV VaccinesAged OutNo longer eligible based on patient's age to complete this topicMeningococcal VaccineAged OutNo longer eligible based on patient's age to complete this topicRotavirus VaccinesAged Out No longer eligible based on patient's age to complete this topic Insurance Care Teams Team MemberRelationshipSpecialtyStart DateEnd Date Shantel Norton, HEMP FIBER TAKER OFF-HEELER [address] [place] [address] PCP - GeneralFamily Medicine12/30/24
--- OUTSIDE RECORDS SUMMARY | 2025-02-25 12:48 | XMS_ITS | Clinical Summary ---
Author Organization [facility] Address [address] [place], [place] [address] Care Team Providers Care Elevator Operator Service Name Role Phone Darrell Weinstein Primary Care Provider [phone] Nereida Castro MD Unavailable [phone] Allergies Active AllergyReactionsCriticalityNoted DateCommentsSulfa (Sulfonamide Antibiotics)Fcarvjkb54/30/2019 Medications MedicationSigDispense QuantityRefillsLast FilledStart DateEnd DateStatus cyanocobalamin (VITAMIN B-12) 1,000 mcg tab 1,000 mcg once daily. Active folic acid 1 mg tablet Take 1 mg by mouth once daily. Active lisinopril (ZESTRIL, PRINIVIL) 10 mg tablet Take 10 mg by mouth once daily. Active metFORMIN (GLUCOPHAGE) 500 mg tablet Take 500 mg by mouth twice daily with meals. Active metoclopramide HCl (REGLAN) 10 mg tablet Take 10 mg by mouth four times daily. Active nortriptyline (PAMELOR) 50 mg capsule Take 50 mg by mouth daily at bedtime. Active omeprazole (PRILOSEC) 20 mg capsule Take 20 mg by mouth once daily. Active pioglitazone (ACTOS) 15 mg tablet Take 15 mg by mouth once daily. Active simvastatin (ZOCOR) 20 mg tablet Take 20 mg by mouth daily at bedtime. Active temazepam (RESTORIL) 30 mg cap Take 30 mg by mouth at bedtime as needed.Active terconazole (TERAZOL 7) 0.4 % vaginal cream insert 1 applicatorful vaginally once daily for 7 nouv541/10/2019Active insulin lispro sliding scale 1 (HUMALOG) Inject 1-5 Units subcutaneously w MEALS.12/17/2018Active docusate sodium (COLACE) 100 mg capsule Take 1 capsule by mouth twice daily. 60 capsule Active ibuprofen (MOTRIN) 600 mg tablet Take 1 tablet by mouth every 6 hours as needed for Pain. 60 tablet Active acetaminophen (TYLENOL) 325 mg tablet Take 2 tablets by mouth every 4 hours as needed for Pain. 60 tablet Active polyethylene glycol 3350 (MIRALAX) 17 gram/dose powder Take 17 g by mouth once daily. 235 g 01/07/2019Active Active Problems ProblemNoted DateDiagnosed DateHypertension Assessment & Plan (12/17/2018 2:53 PM EDT): Assessment: controlled on Lisinopril Diabetes Assessment & Plan (12/17/2018 2:54 PM EDT): Assessment: on Actos, metformin and Humalog. States BG in Am 110-140, Last A1C- 6.5 Hypercholesteremia Assessment & Plan (12/17/2018 2:53 PM EDT): Assessment: on statin Smoker Assessment & Plan (12/17/2018 2:54 PM EDT): Assessment: Current 40 pack year Encounters DateTypeDepartmentCare BykpYwwnfmnhtak26/23/2025Telephone Cancer Appts [facility] [place] [place] [address] Milly Cordoba MD 02/10/2025Lab Requisition [facility] [address] [place] [address] Milly Cordoba MD Person encountering health services to consult on behalf of another person 02/04/2025Telephone Cancer Appts [facility] [place] [address] Milly Cordoba MD from Last 3 Months Family History Medical HistoryRelationCommentsCancerFatherHeart diseaseFatherStrokeFatherHeart diseaseMotherHypertensionMotherStrokeMotherRelationStatusCommentsFatherDeceased Maternal GrandfatherDeceasedMaternal GrandmotherDeceasedMotherDeceasedPaternal GrandfatherDeceasedPaternal GrandmotherDeceased Social History Tobacco UseTypesPacks/DayYears UsedDateSmoking Tobacco: Every AaqTexwoibyno094.8 Started: 1972Smokeless Tobacco: NeverAlcohol UseStandard Drinks/WeekCommentsNot Currently0 (1 standard drink = 0.6 oz pure alcohol)Area Deprivation IndexAnswer Date RecordedNational Score (1-100), lower number is lower riskNot on file 04/03/2020State Score (1-10), lower number is lower riskNot on file04/03/2020 Data from: https://www.neighborhoodatlas.[facility].edu/. Last address used for calculationNot on file04/03/2020CommentsNoSex and Gender Information ValueDate RecordedSex Assigned at BirthNot on fileLegal WxzVicwjd50/02/2012 10:19 AM ESTGender IdentityNot on fileSexual OrientationNot on file Last Filed Vital Signs Vital SignReadingTime TakenCommentsBlood Tgtevpdk335/6508 10:38 AM EDT Rvbjr1757 10:38 AM ICJNqlphctxeus56.2 ??C (97.2 ??F)12/18/2019 10:38 AM EDTRespiratory Iejs591712/18/2019 10:38 AM EDTOxygen Tczogagodg63%12/18/2019 10:38 AM EDTInhaled Oxygen Concentration--Beqotb70.4 kg (206 lb)12/18/2019 10:38 AM CAKNqfpyq165.2 cm (5' 7.01 )02/27/2019 11:07 AM EDTBody Mass Index32.26 02/27/2019 11:07 AM EDT Plan of Treatment DateTypeDepartmentCare Team (Latest Contact Info)Dryeherhirk69/12/2025 11:00 AM ESTVisit (SP) Office Gynecology Oncology [address] [place] [address] [place] [address] Milly Cordoba MD [address] [place] [address] Other Specified noninflammatory disorders of vaginaHealth MaintenanceDue Date Last DoneCommentsAnxiety Dmtndufog60/30/1976Depression Yonpkqmqx27/30/1976 Hepatitis C Jujyntnni09/30/1976DTaP,Tdap,Td Vaccine (1 - Tdap)1976CT Ttoarodvjwin66/30/2003Cologuard (FIT-DNA)11/25/20029549Uojzadwhubo92/30/2003 Colorectal Cancer Irhobutft11/30/2003Fecal Occult Blood2002Lipid Screening 11/25/20024921Otrmjlbcfsqgk47/30/2003Pneumococcal Vaccine: 50+ (1 of 1 - PCV) 11/26/2007Shingrix Vaccine (1 of 2)11/26/2007Mammogram Qsurtvfjj63/12/2022 06/10/2020, 05/11/2019, 05/11/2019, Additional history existsAdvance Directive Pwjoazuprm12/01/2025ovid-19 Vaccine (1 - 2024- season)2024Influenza Vaccine (#1)2024Diabetes Narxambye36/17/851379/, 11/15/2023, 10/30/2023, Additional history existsRSV Vaccine (1 - 1-dose 75+ series) 3Bone Density WhgmjspmcVmcudpobx20/13/2020 Procedures Procedure NamePriorityDate/TimeAssociated DiagnosisCommentsEXTERNAL LAB 02/12/2025 8:39 AM EDT EXTERNAL LAB02/12/2025 8:39 AM EDT EXTERNAL LAB02/12/2025 8:39 AM EDT OUTSIDE SURG PATH SLIDE UDZHGDCtwuolc44/15/2025 10:21 PM EDT Person encountering health services to consult on behalf of another person EXTERNAL LAB02/04/2025 2:41 PM EDT COMPREHENSIVE METABOLIC FCWYUPeftava78/21/2019 3:05 PM EDT Preop examination 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 Narrative Authorizing ProviderResult TypeResult StatusExternal Provider PA-CLABORATORY Final Result * OUTSIDE SURG PATH SLIDE REVIEW (02/10/2025 10:21 PM EDT)ComponentValueRef RangeTest MethodAnalysis TimePerformed AtPathologist SignatureCase Report Surgical Pathology Report ? Case: [id number] ? Authorizing Provider: ??Milly Cordoba MD Collected: ? 02/10/2025 10:21 PM ? Ordering Location: ? [facility] ?Received: ?02/10/2025 10:19 PM ? [facility] ? Pathologist: ? Stacy Hassan MD ? Specimen: ?Slide(s), 2 SLIDES ([id number]) ? 02/11/2025 3:16 PM [facility] MA[facility] LABFINAL DIAGNOSISReview of outside slides Vulva, biopsy: Consistent with condyloma.02/11/2025 3:16 PM [facility] at 1516 EDT Performing LabDiagnostic interpretation performed at: [facility], [address] [facility] [id number] CLIA# [id number] Ham Trimmer: Rudi Turner MD 02/11/2025 3:16 PM [facility] LABDisclaimerLaboratory Developed Test (LDT) Disclaimer: Performance characteristics of immunohistochemical, immunofluorescent, and chromogenic in-situ hybridization tests have been determined by the performing laboratory within the [facility] Department of Pathology and Laboratory Medicine ([facility], [facility], [facility], [facility], [facility], [facility], or [facility]) in a manner consistent with CLIA requirements. One or more of these tests may not have been cleared or approved by the FDA. The [facility] Department of Pathology and Laboratory Medicineis regulated under CLIA as qualified to perform high-complexity testing. These tests are used for clinical purposes. These should not be regarded as investigational or for research. Positive and negative controls stain appropriately.02/11/2025 3:16 PM EDT [facility] LABSpecimen (Source)Anatomical Location / Laterality Collection Method / VolumeCollection TimeReceived TimeBlocks or SlidesMICROSCOPE SLIDE / Ctpbxnf7202/10/2025 10:21 PM EDT1 10:19 PM EDT Narrative Authorizing ProviderResult TypeResult StatusMicmonalisa Cordoba MDSURGICAL PATHOLOGYFinal ResultPerforming OrganizationAddressCity/State/ZIP CodePhone Number [place] [phone] [place] [address], * (ABNORMAL) COMP METABOLIC PANEL (12/17/2018 3:05 PM EDT)ComponentValueRef RangeTest MethodAnalysis TimePerformed AtPathologist SignatureProtein, Total 7.66.3 - 8.0 g/dL12/18/2018 3:35 AM [facility] LaboratoriesAlbumin4.2 3.9 - 4.9 g/dL12/18/2018 3:35 AM [facility] UzghnavtbqphKurtloy34.6 (H)8.5 - 10.2 mg/dL12/18/2018 3:35 AM [facility] Laboratories Bilirubin, Total0.30.2 - 1.3 mg/dL12/18/2018 3:35 AM [facility] LaboratoriesAlkaline Rzymylglmsc6199 - 123 U/L12/18/2018 3:35 AM [facility] VseehmqekdwnRFI5353 - 35 U/L12/18/2018 3:35 AM [facility] HjqvkvlfolphVojhwik2835 - 99 mg/dL12/18/2018 3:35 AM [facility] LaboratoriesComment: The Citizen Of [place] Diabetes Association (ADA) provides guidance for cutoff [...] Medical Care in Diabetes 2016, Citizen Of [place] Diabetes Association. Diabetes Care. 2016.39(Suppl 1). UZF898 - 21 mg/dL12/18/2018 3:35 AM [facility] LaboratoriesCreatinine 0.730.58 - 0.96 mg/dL12/18/2018 3:35 AM [facility] LaboratoriesSodium 466898 - 144 mmol/L12/18/2018 3:35 AM [facility] LaboratoriesPotassium 4.43.7 - 5.1 mmol/L12/18/2018 3:35 AM [facility] LaboratoriesChloride 12064 - 105 mmol/L12/18/2018 3:35 AM [facility] NvghvhtceoqpCM541(L)22 - 30 mmol/L12/18/2018 3:35 AM [facility] LaboratoriesAnion Naz509 - 18 mmol/L12/18/2018 3:[facility] GvxnwmrbttdnPGI185 - 38 U/L 12/18/2018 3:35 AM [facility]TC[facility] LaboratorieseGFR->60 12/18/2018 3:35 AM [facility] LaboratorieseGFR-All Other Races>60. 12/18/2018 3:35 AM ED[facility] Clinic LaboratoriesComment: eGFR (Estimated GFR) Units of measure: mL/min/1.73 [...] eGFR may not accurately reflect actual GFR. Specimen (Source)Anatomical Location / LateralityCollection Method / Volume Collection TimeReceived TimeBlood specimen (specimen)BLOOD SPECIMEN / Unknown 12/17/2018 3:05 PM EDT12/17/2018 3:07 PM EDT Narrative Authorizing ProviderResult TypeResult StatusJennifer Fawad BRAYN.CNPLABORATORY Final ResultPerforming OrganizationAddressCity/State/ZIP CodePhone Number [facility] [address] [place] [address] [facility] [address] [place] [address] from Last 3 Months or Most Recently Relevant to Health Maintenance Insurance Care Teams Team MemberRelationshipSpecialtyStart DateEnd Date Darrell Weinstein [address] [facility] [address] [place] [phone] PCP - GeneralFamily Medicine11/06/18 Nereida Castro MD [address] [phone] ReferringObstetrics11/06/18
--- OUTSIDE RECORDS SUMMARY | 2025-02-25 12:48 | XMS_ITS | Encounter Summary ---
Author Organization [facility] Address [address] [place] [address] Care Team Providers Care Dock Operator Name Role Phone Sandra Lewis DO Primary Care Provider [phone] Reason for Visit * ReasonOnset HiixRstumgdjYcqits40/23/2025ppt needed Encounter Details DateTypeDepartmentCare Team (Latest Contact Info)Zdigdacgunr32/23/2025Telephone [facility] [address] [facility] [address] [place] [phone] Nereida Castro MD [address] [facility] [address] [place] [address] Biopsy (Appt needed ) Social History Tobacco UseTypesPacks/DayYears UsedDateSmoking Tobacco: Every RwwZekjbwyujp444.8 Started: 1973Smokeless Tobacco: Current Comments:Smokes 11-20 cigs p er day Alcohol UseStandard Drinks/WeekCommentsNever0 (1 standard drink = 0.6 oz pure alcohol)caffeine intake: occasionalCommentsNoSex and Gender Information ValueDate RecordedSex Assigned at BirthNot on fileLegal UeaKdhoqq76/15/2023 8:02 PM EDTGender IdentityNot on fileSexual OrientationNot on filedocumented as of this encounter Miscellaneous Notes * Telephone Encounter - Anabelle Mckinley MA - 02/22/2025 12:27 PM EDT 1st Attempt: Called patient to get her scheduled for Colpo per PPJ, left msg for patient to contact office to get scheduled for procedure. Patient was provided with office number and office hours. * Telephone Encounter - Yeny Le - 02/18/2025 10:33 AM EDT The [facility] called. Patient was referred over to . The patient is scheduled 03/10. The doctor is asking for the patient to be scheduled for a colpo with the biopsy before that apton 03/10, so she can have the results by that apt for the patient. The doctor is asking for us to give the office a call back when the patient is scheduled here at [phone]. If we have any questions we can call 's nurse at [phone]. documented in this encounter Plan of Treatment DateTypeDepartmentCare Team (Latest Contact Info)Lrpoftevsnr07/24/2026 4:00 PM EDTOffice Visit [facility] [address] [facility] [address] [place] [address] Luan Kincaid MD [address] [facility] [address] [place] [address] 08/10/2025 1:15 PM EDTOffice Visit [facility] [address] [facility] [address] [place] [address] Nereida Castro MD [address] [facility] [address] [place] [address] documented as of this encounter Visit Diagnoses Not on filedocumented in this encounter Care Teams Team MemberRelationshipSpecialtyStart DateEnd Date Sandra Lewis DO [address] [facility] [place] [phone] PCP - GeneralFamily Medicine10/15/24documented as of this encounter
--- OUTSIDE RECORDS SUMMARY | 2025-02-25 12:48 | XMS_ITS | Patient Health Record ---
Author Organization [facility] Address [address] [place] [address] Care Team Providers Care Culture Room Worker Name Role Phone Dr. Edgar Garcia Primary Care Provider Reason For Referral No Information Plan Of Treatment No Information Insurance Providers Payer Name Payer Address Payer Phone Subscriber Number Group Number Insured Name Patient Relationship to Insured Coverage Start Date Coverage End Date MEDICARE CGS [address] [place] [address] [id number] PRITI Rm - patient is the [id number] 2020[facility]ID [facility] [address] [place] [id number], CINDYSelf - patient is the [id number] 2020ENTAL MEDICAID [place] [address] [place] [address] [phone], CINDYSelf - patient is the [id number] 2020
--- OUTSIDE RECORDS SUMMARY | 2025-02-25 12:48 | XMS_ITS | Encounter Summary ---
Author Organization [facility] Address [address] [place] [address] Phone Care Team Providers Care Community Leader Name Role Phone NakiasandraKimberlyShantel Rebecca FREEDMAN Primary Care Pro vider Reason for Visit * ReasonCommentsMed Refill Encounter Details DateTypeDepartmentCare Team (Latest Contact Info)Brjunpbwsnr51/16/2025Refill [address] [address] Rolnad Faust MD [address] [place] [address] [address], [address] [address] Hypertension, unspecified type; Nonischemic cardiomyopathy (Multi) Social History Tobacco UseTypesPacks/DayYears UsedDateSmoking Tobacco: Every DayCigarettes Smokeless Tobacco: NeverAlcohol UseStandard Drinks/WeekCommentsNever0 (1 standard drink = 0.6 oz pure alcohol)CommentsUnknownSex and Gender InformationValueDate RecordedSex Assigned at BirthNot on fileLegal SexFemale 11/28/2022 3:01 AM EDTGender IdentityNot on fileSexual OrientationNot on file documented as of this encounter Plan of Treatment DateTypeDepartmentCare Team (Latest Contact Info)Fpzznylpixr83/21/2026 3:10 PM EDTOffice Visit [address] [place] [address] Roland Faust MD [address] [facility] 2, [address] [address] documented as of this encounter Visit Diagnoses Diagnosis Hypertension, unspecified type Nonischemic cardiomyopathy (Multi) Other primary cardiomyopathies documented in this encounter Additional Health Concerns AssessmentNoted TimeA fall risk assessment has been completed for the patient 06/26/2024 9:48 AM ESTdocumented as of this encounter Care Teams Team MemberRelationshipSpecialtyStart DateEnd Date Shantel Norton APRN-DUST MIXER [address] [place] [address] PCP - GeneralFamily Medicine12/30/24documented as of this encounter
--- NOTE | 2025-02-25 12:52 | XR_ITS ---
The [address] [address] Patient Name: TAYE MARCOS MRN: [id number] date: 1955 Sex: F Assigned Patient Location: [facility] Current Patient Location: Accession/Order Number: [id number] Exam Date: 02/25/2025 12:53 Report Date: 02/25/2025 22:04 At the request of: BENIGNO GIL NP Procedure: XR cervical spine 5V CERVICAL SPINE 5 views: CLINICAL HISTORY: Neck Pain M54.2 COMPARISON: None FINDINGS: Odontoid view is unremarkable. Cervical vertebral heights maintained. Lool-js-hfowoejk multilevel disc space narrowing greatest C5-C7. Mild multilevel facet degeneration. Uncovertebral spurring C5-C7 causing bilateral foraminal narrowing likely mild to moderate. Prevertebral soft tissues unremarkable. Lung apices are clear. XR/XR cervical spine 5V IMPRESSION: Multilevel degenerative changes notably from C5 through C7. Negative acute osseous abnormalities. Impression dictated by: Yariel Michel M.D. 02/25/2025 10:04 PM Dictation Location: [place] [address] Electronically authenticated by: [id number] Y Date: 02/25/2025 22:04
== END 2025-02-25 12:44 | disposition home or self-care (01) ==
LOC: RAD 12:46
PROVIDERS: Family Provider Family Medicine; PCP Family Medicine; Visit Provider Nurse Practitioner
DX: M54.2 Cervicalgia (principal)
CPT/HCPCS: 72050

== ENCOUNTER 2025-02-25 13:12 | Outpatient (OUT) | payer MEDICARE, MEDICAID, SELFPAY ==
--- OUTSIDE RECORDS SUMMARY | 2015-08-21 20:00 | XMS_ITS | Continuity of Care Document ---
Author Organization [facility] Address [address] [place] [address] Phone Care Team Providers Care Sediment Remediation Consultant Name Role Phone Bridget VARGAS, Margarita Unavailable [...] Diagnoses Date Provider Providers Copied on Encounter [facility], [address] [place], [place], [address] , tel:[phone] [facility] - OP No Information 6 Bridget Avila. [address] [facility] Physician Office [place], [place], [address], [place]. tel:[phone] Referring Provider: Margarita Gutierrez, [address] [facility] Physician Office Building, [place], [address] . tel:[phone] [facility], [address] [place], [place], [address] , tel:[phone] [facility] - OP Shortness of breathChest pain, unspecifiedDizzines s and giddiness 6 Susie Del Toro. [address] [facility] Physicians Office [place], [place], [address], [place]. tel:[phone] Referring Provider: Margarita Gutierrez, [address] [facility] Physician Office Building, [place], [address] . tel:[phone] [facility], [address] [facility], [place], [place], [address] , tel:[phone] [facility] - OP Shortness of breathChest pain, unspecifiedDizzines s and giddiness Apr-0 6-201 6 Jean Pierre-Marietta Blackwell. [address] [facility] Physicians Office Building, [place], [place], [facility], . tel:[phone] Referring Provider: Margarita Gutierrez, [address] [facility] Physician Office Building, [place], [address] . tel:[phone] Family History Family Member Type Diagnosis Age At Onset No Information Payers Payer name Insurance type Covered alliance party ID Jeremiah espinoza(link) Yoana [id number] Social History Type Description Quantity Date Captured [...]
--- OUTSIDE RECORDS SUMMARY | 2015-08-31 07:55 | XMS_ITS | Continuity of Care Document ---
Author Organization [facility] Address [address] [place] [address] Phone Care Team Providers Care Cooking Teacher Name Role Phone Newton Segura MD Unavailable [...] bedtime as needed 200 MG - Active Vitamin D2 50,000 unit [...] before a meal 20 MG - Active simvastatin 20 mg tablet take 1 tablet by oral route every day in the evening 20 MG - Active lisinopril 10 mg tablet take 1 tablet by oral route every day 10 MG - Active Procedures Procedure Date OFFICE/OUTPATIENT VISIT, EST OFFICE CONSULTATION EKG Complete 12 Lead OFFICE/OUTPATIENT VISIT, NEW Advance Directives Directive Yes / No Effective Date File Name No Information Encounters Encounter Description Practice Location Reason(s) For Visit Diagnoses Date Provider Providers Copied on Encounter [facility], [address] [place] [address], [id number], tel:[phone] [facility] No Information 6 Colton Glez. [address] [facility] Physician Office Building, [place], [place], [id number], . tel:[phone] OFFICE/OUTPAT IENT VISIT, [facility] Physician [facility], [address] [place] [address], [id number], [place] tel:[phone] [facility] Hyperlipidemia , unspecified hyperlipidemia typeObesity, unspecified obesity severity, unspecified obesity typeShortness of breathEssentia l hypertension, hypertension with unspecified goal 6 Georgia Mastersi. [address] [place] [address], [place], [place], [id number], [place]. tel:[phone] OFFICE CONSULTATION [facility], [address] [place] [address], [id number], [place] tel:[phone] [facility] Shortness of breathEssentia l hypertension, hypertension with unspecified goalHyperlipid emia LDL goal <100Diabetes mellitus type II, non insulin dependent Jun- 6 Bridget Avila. [address] [facility] Physician Office Building, [place], [place], [id number], [place]. tel:[phone] Referring Provider: Sadie Fritz NP, [facility] Maninder Saldivar, [place], [address]. tel:[phone] [facility], [address] [place] [address], [id number], [place] tel:[phone] [facility] No Information 6 Bridget Avila. [address] [facility] Physician Office Building, [place], [place], [id number], [place]. tel:[phone] OFFICE/OUTPAT IENT VISIT, [facility], [address] [place] [address], [id number], [place] tel:[phone] [facility] Obesity, Morbid (chief complaint) Body mass index (BMI) 33.0-33.9, adult 7201 5 Steve Bishop. [address] [facility] Physician Office Building, [place], [place], [id number], [place]. tel:[phone] Family History Family Member Type Diagnosis Age At Onset Sister Problem (finding) no hx of CAD Mother Problem (finding) CHF and HTN Brother Problem (finding) Alive and well Sister Problem (finding) 64 Father Problem (finding) [place] with hx of cabg (Cau se Of ) 79 Sister Problem (finding) myocardial inf arct in first degree female relative less than 65 years of age (Cause Of ) 64 Father Problem (finding) Brother Problem (finding) No hx of CAD Payers Payer name Insurance type Covered green party ID Jeremiah espinoza(rod Lees [id number] Social History Type Description Quantity Date Captured [...] Referral Ordered: Stress Test Cardiovascular (Plain Treadmill) [id number] Ordered: X-Ray Chest PA & Lateral: 2 View [id number] Ordered: Complete Pulmonary Function Test ordered History [...]
--- OUTSIDE RECORDS SUMMARY | 2020-07-25 11:15 | XMS_ITS | Continuity of Care Document ---
Author Organization [facility] Address [address] [place] [address] Phone Care Team Providers Care Electronic Engineering Technician Name Role Phone John Morgan Unavailable Unavailable [...] CHIROPRACTIC MANIPULATION GLYCOSYLATED HEMOGLOBIN TEST OFFICE/OUTPATIENT VISIT, [facility] Advance Directives Directive Yes / No Effective Date File Name No Information Encounters Encounter Description Practice Location Reason(s) For Visit Diagnoses Date Provider Providers Copied on Encounter [facility], [address] [place] [address], [id number] , tel: [phone] [facility] cervical spine (chief complaint) cervical spine (chief complaint) Segmental and somatic dysfunction of cervical regionCervicalgiaSegm ental and somatic dysfunction of lumbar region 9- 1 Eddie Lopez. [address] [place] [address], [id number] , [place]. tel: [phone] [facility], [address] [place] [address], [id number] , tel: [phone] [facility] cervical spine (chief complaint) cervical spine (chief complaint) Segmental and somatic dysfunction of cervical regionCervicalgiaSegm ental and somatic dysfunction of lumbar region 0-201 9 Eddie Lopez. [address] [place] [address], [id number] , [place]. tel: [phone] [facility], [address] [place] [address], [id number] , [place] tel: [phone] [facility] cervical spine (chief complaint) cervical spine (chief complaint) Segmental and somatic dysfunction of cervical regionCervicalgiaSegm ental and somatic dysfunction of lumbar regionLow back pain Jul-0 9-201 9 Eddie Lopez. [address] [place] [address], [id number] , [place]. tel: [phone] [facility], [address] [place] [address], [id number] , [place] tel: [phone] [facility] cervical spine (chief complaint) cervical spine (chief complaint) Segmental and somatic dysfunction of cervical regionCervicalgiaSegm ental and somatic dysfunction of lumbar regionLow back pain 9 Eddie Lopez. [address], [place], [id number] , [place]. tel: [phone] [facility], [address], [place], [id number] , [place] tel: [phone] [facility] cervical spine (chief complaint) cervical spine (chief complaint) Segmental and somatic dysfunction of cervical regionCervicalgiaSegm ental and somatic dysfunction of lumbar regionLow back pain 9 Eddie Lopez. [address], [place], [id number] , [place]. tel: [phone] [facility], [address] [place] [address], [id number] , [place] tel: [phone] [facility] cervical spine (chief complaint) cervical spine (chief complaint) Segmental and somatic dysfunction of cervical regionCervicalgiaSegm ental and somatic dysfunction of lumbar region 8 Eddie Lopez. [address], [place], [id number] , [place]. tel: [phone] [facility], [address] [place] [address], [id number] , [place] tel: [phone] [facility] Spine Care (chief complaint) Segmental and somatic dysfunction of cervical regionCervicalgiaSegm ental and somatic dysfunction of lumbar region 8 Eddie Lopez. [address] [place] [address], [id number] , [place]. tel: [phone] [facility], [address] [place] [address], [id number] , [place] tel: [phone] [facility] Spine Care (chief complaint) Segmental and somatic dysfunction of cervical regionCervicalgiaSegm ental and somatic dysfunction of lumbar region 8 Eddie Lopez. [address], [place], [id number] , [place]. tel: [phone] [facility], [address] [place] [address], [id number] , [place] tel: [phone] [facility] Spine Care (chief complaint) Segmental and somatic dysfunction of cervical regionCervicalgiaSegm ental and somatic dysfunction of lumbar regionOther intervertebral disc degeneration, lumbar region May-0 8 Eddie Lopez. [address], [place], [id number] , [place]. tel: [phone] [facility], [address], [place], [id number] , [place] tel: [phone] [facility] Spine Care (chief complaint) Segmental and somatic dysfunction of lumbar regionLow back painOther intervertebral disc degeneration, lumbar regionSegmental and somatic dysfunction of cervical region Jul-2 0- 8 Eddie Lopez. [address], [place], [id number] , [place]. tel: [phone] [facility], [address] [place] [address], [id number] , [place] tel: [phone] [facility] Spine Care (chief complaint) Segmental and somatic dysfunction of lumbar regionLow back painOther intervertebral disc degeneration, lumbar regionSegmental and somatic dysfunction of cervical region Jun-2 8 Eddie Lopez. [address], [place], [id number] , [place]. tel: [phone] [facility], [address], [place], [id number] , [place] tel: [phone] [facility] Spine Care (chief complaint) Segmental and somatic dysfunction of lumbar regionLow back painOther intervertebral disc degeneration, lumbar regionSegmental and somatic dysfunction of cervical region Jun-2 2- 8 Eddie Lopez. [address], [place], [id number] , [place]. tel: [phone] [facility], [address], [place], [id number] , [place] tel: [phone] [facility] Spine Care (chief complaint) Segmental and somatic dysfunction of lumbar regionLow back painOther intervertebral disc degeneration, lumbar regionSegmental and somatic dysfunction of cervical region Jun- 9- 8 Eddie Lopez. [address], [place], [id number] , [place]. tel: [phone] [facility], [address], [place], [id number] , [place] tel: [phone] [facility] Spine Care (chief complaint) Segmental and somatic dysfunction of lumbar regionLow back painOther intervertebral disc degeneration, lumbar regionSegmental and somatic dysfunction of cervical region Jun-1 5-201 8 Eddie Lopez. [address], [place], [id number] , [place]. tel: [phone] [facility], [address], [place], [id number] , [place] tel: [phone] [facility] Spine Care (chief complaint) Segmental and somatic dysfunction of lumbar regionLow back painOther intervertebral disc degeneration, lumbar regionSegmental and somatic dysfunction of cervical region Jun-1 2-201 8 Eddie Lopez. [address] [place] [address], [id number] , [place]. tel: [phone] [facility], [address], [place], [id number] , [place] tel: [phone] [facility] Spine Care (chief complaint) Segmental and somatic dysfunction of lumbar regionLow back painOther intervertebral disc degeneration, lumbar regionSegmental and somatic dysfunction of cervical region Mar-0 8-201 8 Eddie Lopez. [address], [place], [id number] , [place]. tel: [phone] [facility], [address], [place], [id number] , [place] tel: [phone] [facility] Spine Care (chief complaint) Segmental and somatic dysfunction of lumbar regionLow back painOther intervertebral disc degeneration, lumbar regionSegmental and somatic dysfunction of cervical region Jun-0 5-201 8 Eddie Lopez. [address] [place] [address], [id number] , [place]. tel: [phone] [facility], [address] [place] [address], [id number] , [place] tel: [phone] [facility] Spine Care (chief complaint) Segmental and somatic dysfunction of lumbar regionLow back painOther intervertebral disc degeneration, lumbar regionSegmental and somatic dysfunction of cervical region Mar-0 1- 8 Eddie Lopez. [address], [place], [id number] , [place]. tel: [phone] [facility], [address], [place], [id number] , [place] tel: [phone] [facility] Spine Care (chief complaint) Segmental and somatic dysfunction of lumbar regionLow back painOther intervertebral disc degeneration, lumbar regionSegmental and somatic dysfunction of cervical region Feb-2 6- 8 Eddie Lopez. [address], [place], [id number] , [place]. tel: [phone] [facility], [address] [place] [address], [id number] , [place] tel: [phone] [facility] Spine Care (chief complaint) Segmental and somatic dysfunction of lumbar regionLow back painOther intervertebral disc degeneration, lumbar regionSegmental and somatic dysfunction of cervical region Feb-2 2- 8 Eddie Lopez. [address], [place], [id number] , [place]. tel: [phone] [facility], [address], [place], [id number] , [place] tel: [phone] [facility] Spine Care (chief complaint) Segmental and somatic dysfunction of lumbar regionLow back painOther intervertebral disc degeneration, lumbar regionSegmental and somatic dysfunction of cervical region Feb-2 0- 8 Eddie Lopez. [address], [place], [id number] , [place]. tel: [phone] [facility], [address], [place], [id number] , [place] tel: [phone] [facility] No Information Yan- 7 Eber Ramos. [address], [place], [id number] , [place]. tel: [phone] [facility], [address] [place] [address], [id number] , [place] tel:[phone] [facility] No Information 7 Eber Ramos. [address], [place], [id number] , [place]. tel: [phone] OFFICE/OUTPA TIENT VISIT, [facility], [address], [place], [id number] , [place] tel: [phone] [facility] est care (chief complaint) medication refill (chief complaint) Type 2 diabetes mellitus with hyperglycemiaType 2 DM with diabetic neuropathyInsomnia 7 Eber Ramos. [address] [place] [address], [id number] , [place]. tel: [phone] Family History Family Member Type Diagnosis Age [...] Urine microalbumin. Due on O due Goal Dilated eye exam. Due on [...] 9 due Goal Urine microalbumin. Due on M [...] eye exam. Due on Jun due Goal Foot exam. Due on 9 [...] establish care, she recently moved back to [place] from [place]. She is here taking care of her mother. She was seeing Sadie Fritz [employer] in [place], states she just had blood work done beginning of June before moving here. A1C today 9.0. Patient states she does not currently have insurance since moving here from [place] and was unable to get her medications [...]
--- OUTSIDE RECORDS SUMMARY | 2025-02-25 13:20 | XMS_ITS | Clinical Summary ---
Author Organization [facility] Address [address] [place] [address] Care Team Providers Care Rn Navigator Name Role Phone Sandra Lewis DO Primary Care Provider [phone] Allergies Active AllergyReactionsCriticalityNoted DateCommentsSulfa AntibioticsGI intolerance,Vmhmxsi7811/25/2018 Medications MedicationSigDispense QuantityRefillsLast FilledStart DateEnd DateStatus Continuous Blood Gluc Sensor (BioRegenerative SciencesStyle Brent 14 Day Sensor) [facility] apply 1 SENSOR as directed every 14 days use with DEVICE to MONIT... (REFER TO PRESCRIPTION NOTES).12/21/2022ctive Toujeo SoloStar 300 UNIT/ML injection inject 20 units subcutaneously as taukqvhh63/16/2023ctive Droplet Pen [place] 32G X 4 MM misc use 1 PEN NEEDLE to inject MEDICATION subcutaneously five times a day02/19/2022 Active omeprazole (PriLOSEC) [address] capsule 01/02/2023ctive Ozempic, 1 MG/DOSE, 4 MG/3ML solution pen-injector Administer 1mg subcutaneously once rgvdun6012/10/2022ctive simvastatin (Zocor) 40 MG tablet Take 40 mg by mouth at bxwxftn6912/04/2022ctive Jardiance 25 MG take 1 tablet orally [...] Problems ProblemNoted DateDiagnosed DateWeakness of both lower bjmhpypppfj30/10/2025 Overview (10/06/2024): --- multifactorial, including PN G62.9, [...] redo spinal surgery consult. TIA (transient ischemic attack)05/13/20244174Zntypwbfmraewe89/10/2024 Assessment & Plan (04/07/2024 2:16 PM EST): Consult haematology. Cognitive gvlupgk1902/25/2024 Assessment & Plan (01/19/2025 4:35 PM EDT): (Continue current regimen.) Assessment & Plan (10/06/2024 2:30 PM EDT): (Continue current regimen.) Assessment & Plan (07/21/2024 3:08 PM EDT): (Continue current regimen.) Get [facility] records - neuro consults, EEG, MR, carotids, echo, discharge summary. Assessment & Plan (04/07/2024 2:16 PM EST): Pt to retry donepezil 15 qam (or 10/5). Assessment & Plan (02/25/2024 2:59 PM EDT): Add memantine 10 -> bid. Then add donepezil 10, titrate. Handout. Get MR images transferred to [facility] PACS for my review. 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 Assessment & Plan (01/19/2025 4:35 PM EDT): (Continue avoiding compression.) Assessment & Plan (10/06/2024 2:30 PM EDT): (Continue avoiding compression.) Assessment & Plan (07/21/2024 3:08 PM EDT): (Avoid compression.) Assessment & Plan (04/07/2024 2:16 PM EST): PO yocvivol71/02/2024 Assessment & Plan (02/25/2024 2:43 PM EDT): Get Dr. Gonzalez's note (2nd request). Assessment & Plan (01/07/2024 1:44 PM EDT): Get rheum note. Assessment & Plan (12/12/2023 2:49 PM EDT): Consult Drs. Vang/Lisa - PO positive, titer increasing, but subtests neg. Known peripheral neuropathy, worsening. Get full set of labs ([facility]). We have some but not all - [...] will need neurosurgery consult. Adverse effect of alpha-unbcecoigo27/02/2024Vitamin E vqdjpcmivd74/02/2024 Assessment & Plan (11/29/2023 3:06 PM EDT): Add MVI (for Vitamin E). Or if already on MVI, add Vit E separately, 2/week. Chronic low back pain without wnsojibn25/10/3722Itzlusfktwa49/10/2024Cervical paraspinal muscle spasm10/29/2023 Assessment & Plan (01/19/2025 [...] to neck as well.) Carpal tunnel syndrome, kkyykdryq34/02/2024 Overview (10/06/2024): --- causing hand weakness R29.898. [...] EDT): Restart splint use. ENMG BUE. (2nd) Kllhzolcyckhxu11/02/2024 Assessment & Plan (11/29/2023 3:06 PM EDT): Pt reports 2nd PO is high 1:320 but I don't see it in the labs. Let's make sure we get this. May need rheumatology consult. Neuropathy panel II. Assessment & Plan (10/29/2023 3:17 PM EDT): Redo neurop panel. Diabetic peripheral wkxeyphihu87/02/2383H07 eblixqrthy70/02/2024 Assessment & Plan (01/19/2025 4:35 PM EDT): [...] are drawn. Redo B12 panel 8 w. Snjopcxorsjf66/02/2024Lumbar paraspinal muscle spasm10/29/2023 Assessment & Plan (01/07/2024 [...] 3:18 PM EDT): Myopathy panel. Leg pain, mizwexahx72/02/2024 Assessment & Plan (10/29/2023 3:20 PM EDT): XR L-s 6 v. ENMG BLE. (First) Resolved Problems ProblemNoted DateDiagnosed DateResolved DateOSA (obstructive sleep apnea) Encounters DateTypeDepartmentCare OumiJnygcevznwa07/23/2025Telephone [facility] [address] [place] [phone] Nereida Castro MD Biopsy (Appt needed )02/09/2025 12:30 PM EDTOffice Visit [facility] [address] [place] [phone] Nereida Castro MD Encounter for gynecological examination; Vaginal mqcvra3202/09/20255293Lkxfxo08/14/2025Results Follow-Up [facility] [address] [place] [phone] Nereida Castro MD MISCELLANEOUS SMEAR PBCUGOXO08/09/2025Results Follow-Up [facility] [address] [place] [phone] Nereida Castro MD Pathology Report, IGP, APT HPV,RFX 16/18,45, HPV Genotypes 16/18,45 Reflex 02/02/2025 1:30 PM EDTOffice Visit [facility] [address] [place] [phone] Nereida Castro MD Encounter for gynecological examination; Vaginal lesion; Encounter for gynecological examination without abnormal finding; Encounter for screening for cervical cancer; Breast cancer screening by ewxrxfujm67/07/2025Orders Only [facility] Unsolicited Nereida Castro MD 02/02/20250677Hainmr83/30/2025Telephone [facility] [address] [place] [address] Nereida Castro MD 01/19/2025 4:00 PM EDTOffice Visit [facility] [place] [facility] [address] [place] [address] Luan Kincaid MD Weakness of both lower extremities (Primary Dx); Carpal tunnel syndrome, bilateral; Cognitive decline; Cervical paraspinal muscle spasm; B12 deficiency; Guyon syndrome, unspecified quetezvgyu22/23/2025amboo flowsheet [facility] [address] [place] [address] Luan Kincaid MD 01/19/20253566Pnuclf69/04/2025 4:00 PM EDTAncillary Procedure [facility] [address] [facility] [address] [place] [address] Lumbosacral radiculopathy at L5; Weakness of both lower extremities; Leg pain, lnabxtero24/04/6748Matgdo86/22/2025 1:15 PM EDTProcedure Visit [facility] [place] [facility] [address] [facility] [address] [place] [address] Luan Kincaid MD Numbness (Primary Dx); Paresthesias; Pain in both lower extremities; Lumbosacral radiculopathy at L512/18/2024Orders Only [facility] [address] [facility] [address] [place] [address] Luan Kincaid MD Lumbosacral radiculopathy at L5; Weakness of both lower extremities; Leg pain, lyrcmhuxi25/22/8734Qiwgjm25/15/2025 1:15 PM EDTProcedure Visit [facility] [place] [facility] [address] [facility] [address] [place] [address] Luan Kincaid MD Hand weakness (Primary Dx); Carpal tunnel syndrome, bvadjfoma79/15/2996Zlqgah81/04/2025Telephone [facility] [address] [place] [address] Maureen Fritz DPM Error (VOID this visit)from Last 3 Months Family History Medical HistoryRelationNameCommentsMental illnessDaughterCancerFatherHeart diseaseFatherStrokeFatherHeart diseaseMotherHypertensionMotherStrokeMother DiabetesSiblingBipolar disorderSister 1DiabetesSonRelationNameStatusComments Brother 1AliveBrother 2AliveDaughterAliveFatherDeceasedMaternal Grandfather DeceasedMaternal GrandmotherDeceasedMotherDeceasedPaternal GrandfatherDeceased Paternal GrandmotherDeceasedSiblingAliveSister 1AliveSister 2AliveSonAlive Social History Tobacco UseTypesPacks/DayYears UsedDateSmoking Tobacco: Every TriLgcysyuqgr417.8 Started: 1975Smokeless Tobacco: Current Tobacco Cessation:Ready to Q uit: Not Asked; Counseling Given: Not Answered Comments:Smokes 11-20 cigs per day Alcohol UseStandard Drinks/WeekCommentsNever0 (1 standard drink = 0.6 oz pure alcohol)caffeine intake: occasionalCommentsNoSex and Gender Information ValueDate RecordedSex Assigned at BirthNot on fileLegal TklEczgoh84/15/2023 8:02 PM EDTGender IdentityNot on fileSexual OrientationNot on file Last Filed Vital Signs Vital SignReadingTime TakenCommentsBlood Tlqcewpf448/7410 12:41 PM EDT Tupnx916202/25/2024 1:55 PM EDTTemperature--Respiratory Rate--Oxygen Saturation-- Inhaled Oxygen Concentration--Ejznao74 kg (194 lb)02/09/2025 12:41 PM EDTHeight 170.2 cm (5' 7 )02/02/2025 1:19 PM EDTBody Mass Index30.381 1:19 PM EDT Plan of Treatment DateTypeDepartmentCare Team (Latest Contact Info)Czbibekiyvm33/24/2026 4:00 PM EDTOffice Visit [facility] [address] [place] [address] Luan Kincaid MD [address] [facility] [address] [place] [address] 08/10/2025 1:15 PM EDTOffice Visit [facility] [address] [place] [phone] Nereida Castro MD [address] [place] [address] Procedures Procedure NamePriorityDate/TimeAssociated DiagnosisCommentsPATHOLOGY REPORT Vgnrhfl3602/02/2025 2:47 PM EDT Vaginal lesion HPV GENOTYPES 16/18,45 PXTBPAWrmnlfq81/07/2025 12:00 AM EDT MISCELLANEOUS SMEAR EMQEGLHMWlbcbce33/07/2025 12:00 AM EDT IGP, APT HPV,RFX 16/18,49Obufllr12/07/2025 12:00 AM EDT Encounter for gynecological examination without abnormal finding Encounter for screening for cervical cancer MR LUMBAR SPINE WO ZIMMLZNWByzvltp90/04/2025 4:24 PM EDT Lumbosacral radiculopathy at L5 Weakness of both lower extremities Leg pain, bilateral from Last 3 Months Results * Pathology Report (02/02/2025 2:47 PM EDT)ComponentValueRef RangeTest Method Analysis TimePerformed AtPathologist SignatureMaterial Submitted:Comment [facility]PComment: Material submitted: ?. vulva - VULVA Clinician Provided QGJ77QjsjvujSVWBJVZQgqpcyc: Clinician provided ICD-10: N89.8 Diagnosis:CommentLABCORPComment: Diagnosis: VULVA, BIOPSY: - MULTIPLE FRAGMENTS OF BENIGN POLYPOID VULVAR EPITHELIAL MUCOSA WITH HYPERPLASIA, VASCULAR CONGESTION AND CHRONIC INFLAMMATION. - NEGATIVE FOR FUNGAL ORGANISMS, ATYPIA, AND MALIGNANCY. SMI ??02/04/2025 ??0846 Local Electronically Signed:CommentLABCORPComment: Electronically signed: ? . Kemar Bella MD, Pathologist Gross Description:CommentLABCORPComment: Gross description: [...] CASSETTE. MZH/BXS ??02/03/2025 ??1504 Local Pathologist Provided KNB98OzsdsjzNXBCFVATmftcbb: Pathologist provided ICD-10: N90.89 CPTCommentLABCORPComment: CPT ?. 271550 Specimen (Source)Anatomical Location / LateralityCollection Method / Volume Collection TimeReceived TimeOtherTopography unknown / Hkztfoy2002/02/2025 2:47 PM EDT1omment:Other Vulva Print requ Narrative [facility] - 02/04/2025 10:07 AM EDT Performed at: 01 - [facility] [place] [address] [place] [address] ??[id number] Studio Set Up Worker: Kemar Bella MD, Phone: ??[phone] Performed at: ??02 - [address] ??[id number] Studio Set Up Worker: Jason Nation MD, Phone: ??[phone] Performed at: ??03 - [facility] [address] [place] [address] ??[id number] Studio Set Up Worker: Kemar Bella MD, Phone: ??[phone] Specimen Comment: [id number] Specimen Comment: No. of containers..01 Tissue Authorizing [...] by:CommentLABCORPComment:Eldon Madera MD, PathologistPerformed by:Comment [facility]ABCORPComment:Carmelita Reese, Associate Professor Of Law (ASC)Gross description:Comment LABCORPComment: 20ML, LT WHITE, CLOUDY /LCS ??02/05/2025 ??0740 Local Specimen (Source)Anatomical Location / LateralityCollection Method / Volume Collection TimeReceived Time Narrative [facility] - 02/08/2025 1:07 PM EDT Performed at: 01 - [facility] [place] [place] ??[id number] Studio Set Up Worker: Savi Cai MD, Phone: ??[phone] Specimen Comment: No. of containers..01 ThinPrep Vial [...] ICD10:CommentLABCORP Comment: Z01.419 Z12.4 Performed By:CommentLABCORPComment:Jolly Kennedy, Associate Professor Of Law (ASCP) Electronically Signed By:CommentLABCORPComment:Valery Varela MD, Pathologist [...] ThinPrep(R) pap test was interpreted using the LiveHotSpot(R) Genius(TM) Cervical Algorithm whole slide imaging system. HPV AptimaPositive(A)NegativeLABCORPComment: This nucleic acid amplification test detects fourteen high-risk HPV types (16,18,31,33,35,39,45,51,52,56,58,59,66,68) without differentiation. Specimen (Source)Anatomical Location / LateralityCollection Method / Volume Collection TimeReceived TimeVaginal Fluid Narrative [facility] - 02/08/2025 8:07 PM EDT Performed at: - [address] ??[id number] Studio Set Up Worker: Savi Cai MD, Phone: ??[phone] Performed at: ?? - [address] ??[id number] Studio Set Up Worker: Savi Cai MD, Phone: ??[phone] Specimen Comment: Source.............Cervix Specimen Comment: No. of containers..01 ThinPrep Vial Authorizing ProviderResult TypeResult StatusNereida THOMAS BLOOD ORDERABLESFinal ResultPerforming OrganizationAddressCity/State/ZIP CodePhone Number [facility] * (ABNORMAL) HPV Genotypes 16/18,45 Reflex (02/02/2025 12:00 AM EDT)Component ValueRef RangeTest MethodAnalysis TimePerformed AtPathologist SignatureHPV Genotype 16Positive(A)NegativeLABCORPHPV Genotype 18,45NegativeNegativeLABCORP Specimen (Source)Anatomical Location / LateralityCollection Method / Volume Collection TimeReceived Time Narrative [facility] - 02/08/2025 8:07 PM EDT Performed at: - [address] ??[id number] Studio Set Up Worker: Savi Cai MD, Phone: ??[phone] Authorizing ProviderResult TypeResult StatusNereida THOMAS CYTOLOGY ORDERABLESFinal [...] MemberRelationshipSpecialtyStart DateEnd Date Debbie DO Sandra [address] [facility] [place] [address] PCP - GeneralFamily Medicine10/15/24
--- OUTSIDE RECORDS SUMMARY | 2025-02-25 13:20 | XMS_ITS | Clinical Summary ---
Author Organization [facility] Address [address] [place] [address] Phone Care Team Providers Care Grooming Assistant Name Role Phone Shantel Norton APRN-SECTION LEADER SCREEN PRINTING Primary Care Pro vider Allergies Active AllergyReactionsCriticalityNoted DateCommentsSulfa (Sulfonamide Antibiotics)GI intolerance,Unknown,Nausea/oghbixmv50/30/2019 Medications MedicationSigDispense QuantityRefillsLast FilledStart DateEnd DateStatus semaglutide [...] Problems ProblemNoted DateDiagnosed DateObesity (BMI 30-39.9)12/16/2023Typical atrial umsqdhe9310/07/2023Nonischemic jpxpwlijjuaiyc05/10/5732Qrimimmf57/21/2024 Overview (09/17/2023): Last Assessment & Plan: Assessment: on Actos, metformin and Humalog. States BG in Am 110-140, Last A1C- 6.5 Qgmrbdczbfooaaqrzj70/21/2024 Overview (09/17/2023): Last Assessment & Plan: Assessment: on statin Wkuaomgcmdiu52/21/2024 Overview (09/17/2023): Last Assessment & Plan: Assessment: controlled on Lisinopril Current gpgmem9309/17/2023 Overview (09/17/2023): Last Assessment & Plan: Assessment: Current 40 pack year Resolved Problems ProblemNoted DateDiagnosed DateResolved DateHigh risk medication use11/13/2023 12/30/2024MI 28.0-28.9,adult/ Encounters DateTypeDepartmentCare JdnwDvyrxhtjdgf24/16/2025Refill [address] [phone] Roland Faust MD Hypertension, unspecified type; Nonischemic cardiomyopathy (Multi)12/30/2024 1:40 PM EDTOffice Visit [address] [phone] Roland Faust MD Typical atrial flutter (Multi) (Primary Dx); Nonischemic cardiomyopathy (Multi); Hypertension, unspecified type; Hypercholesteremia; Obesity (BMI 30-39.9); Current smoker Discharge Disposition: Home12/30/20241405Lfirqj34/30/2025Scanned Document [facility] [address] [place] [address] Scanning, Generic Provider from Last 3 Months Family History Medical HistoryRelationNameCommentscabgFatherHeart failureMotherheart stent MotherRelationNameStatusCommentsFatherMother Social History Tobacco UseTypesPacks/DayYears UsedDateSmoking Tobacco: Every DayCigarettes Smokeless Tobacco: Never Tobacco Cessation:Ready to Q uit: No; Counseling Given: Yes Alcohol UseStandard Drinks/WeekCommentsNever0 (1 standard drink = 0.6 oz pure alcohol)CommentsUnknownSex and Gender InformationValueDate RecordedSex Assigned at BirthNot on fileLegal TciMalnyd89/02/2023 3:01 AM EDTGender Identity Not on fileSexual OrientationNot on file Last Filed Vital Signs Vital SignReadingTime TakenCommentsBlood Ljbyljpx401/70012/30/2024 1:47 PM EDT Rzqei2745/03/2025 1:47 PM EDTTemperature--Respiratory Rate--Oxygen Saturation-- Inhaled Oxygen Concentration--Ijlfuf25.4 kg (197 lb)12/30/2024 1:47 PM EDTHeight 170.2 cm (5' 7 )12/30/2024 1:47 PM EDTBody Mass Index30.85012/30/2024 1:47 PM EDT Plan of Treatment DateTypeDepartmentCare Team (Latest Contact Info)Oiptwoeyefj59/21/2026 3:10 PM EDTOffice Visit [facility] [address] [facility] [address] [place] [address] Roland Faust MD [address] [facility] [address] [place] [address] Health MaintenanceDue DateLast DoneCommentsCT Kbsutwkdkbcb69/30/1958Colonoscopy 1957Colorectal Cancer Crxfcffyb25/30/1958Diabetes: Hemoglobin A1C 1955Diabetes: Urine Protein Czrorbniq98/30/1958FIT-DNA (Cologuard) 1957FIT1957Lipid Panel1957Medicare Annual Wellness Visit (AWV) 1955 1922Ndgygvrkjclnr13/30/1958Diabetes: Retinopathy Rbjdninpu04/30/1968 Hepatitis C Tlaupbjcd47/30/1976Pneumococcal Vaccine (1 of 2 - PCV)1976 DTaP/Tdap/Td Vaccines (1 - Tdap)11/26/1979RSV High Risk: (Elderly (60+) or Population) (1 - Risk 50-74 years 1-dose series)11/26/2007Zoster Vaccines (1 of 2)11/26/20076448Fgbyzbjmc78/12/202202/1Bone Density Scan 2022TSH Level07507/06/2023Influenza Vaccine (#1)5COVID-19 Vaccine ( season)2024MMR FyygldltXasyybzzy14/05/2002HIB VaccinesAged OutNo longer eligible based on patient's [...] Teams Team MemberRelationshipSpecialtyStart DateEnd Date Shantel Norton, BROADCAST CORRESPONDENT-SECTION LEADER SCREEN PRINTING [address] [place] [address] PCP - GeneralFamily Medicine12/30/24
--- OUTSIDE RECORDS SUMMARY | 2025-02-25 13:20 | XMS_ITS | Encounter Summary ---
Author Organization [facility] Address [address] [place] [address] Phone Care Team Providers Care Toolroom Clerk Name Role Phone NakiasandraKimberlyShantel Rebecca FREEDMAN Primary Care Pro vider Reason for Visit * ReasonCommentsMed Refill Encounter Details DateTypeDepartmentCare Team (Latest Contact Info)Lnnhnszjynp00/16/2025Refill [address] [address] Roland Faust MD [address] [place] [address] [address], [address] [address] Hypertension, unspecified type; Nonischemic cardiomyopathy (Multi) Social History Tobacco UseTypesPacks/DayYears UsedDateSmoking Tobacco: Every DayCigarettes Smokeless Tobacco: NeverAlcohol UseStandard Drinks/WeekCommentsNever0 (1 standard drink = 0.6 oz pure alcohol)CommentsUnknownSex and Gender InformationValueDate RecordedSex Assigned at BirthNot on fileLegal SexFemale 11/28/2022 3:01 AM EDTGender IdentityNot on fileSexual OrientationNot on file documented as of this encounter Plan of Treatment DateTypeDepartmentCare Team (Latest Contact Info)Fqbkraobvxu12/21/2026 3:10 PM EDTOffice Visit [address] [place] [address] Roland Faust MD [address] [facility] [address], [address] [address] documented as of this encounter Visit Diagnoses Diagnosis Hypertension, unspecified type Nonischemic cardiomyopathy (Multi) Other primary cardiomyopathies documented in this encounter Additional Health Concerns AssessmentNoted TimeA fall risk assessment has been completed for the patient 06/26/2024 9:48 AM ESTdocumented as of this encounter Care Teams Team MemberRelationshipSpecialtyStart DateEnd Date Shantel Norton APRN-AUTOMOBILE TIRE BUILDER [address] [place] [address] PCP - GeneralFamily Medicine12/30/24documented as of this encounter
--- OUTSIDE RECORDS SUMMARY | 2025-02-25 13:20 | XMS_ITS | Clinical Summary ---
Author Organization [facility] Address [address] [place], [place] [address] Care Team Providers Care Telephone Sterilizer Name Role Phone Darrell Weinstein Primary Care Provider [phone] Nereida Castro MD Unavailable [phone] Allergies Active AllergyReactionsCriticalityNoted DateCommentsSulfa (Sulfonamide Antibiotics)Fpohvghq14/30/2019 Medications MedicationSigDispense QuantityRefillsLast FilledStart DateEnd DateStatus cyanocobalamin [...] 1 applicatorful vaginally once daily for 7 gjqi762/10/2019Active insulin lispro sliding scale 1 (HUMALOG) Inject [...] Assessment: Current 40 pack year Encounters DateTypeDepartmentCare OxwkWhbqxoetair01/23/2025Telephone Cancer Appts [facility] [place] [address] Milly Cordoba MD 02/10/2025Lab Requisition [facility] [address] [place] [address] Milly Cordoba MD Person encountering health services to consult on behalf of another person 02/04/2025Telephone Cancer Appts [facility] [place] [address] Milly Cordoba MD from Last 3 Months Family History Medical HistoryRelationCommentsCancerFatherHeart diseaseFatherStrokeFatherHeart diseaseMotherHypertensionMotherStrokeMotherRelationStatusCommentsFatherDeceased Maternal GrandfatherDeceasedMaternal GrandmotherDeceasedMotherDeceasedPaternal GrandfatherDeceasedPaternal GrandmotherDeceased Social History Tobacco UseTypesPacks/DayYears UsedDateSmoking Tobacco: Every IqoWptirruibg198.8 Started: 1972Smokeless Tobacco: NeverAlcohol UseStandard Drinks/WeekCommentsNot Currently0 (1 standard drink = 0.6 oz pure alcohol)Area Deprivation IndexAnswer Date RecordedNational Score (1-100), lower number is lower riskNot on file 04/03/2020State Score (1-10), lower number is lower riskNot on file04/03/2020 Data from: https://www.neighborhoodatlas.[facility].edu/. Last address used for calculationNot on file04/03/2020CommentsNoSex and Gender Information ValueDate RecordedSex Assigned at BirthNot on fileLegal FkwYmggcy48/02/2012 10:19 AM ESTGender IdentityNot on fileSexual OrientationNot on file Last Filed Vital Signs Vital SignReadingTime TakenCommentsBlood Vzpuehxj526/6508 10:38 AM EDT Lxskn1703 10:38 AM RFJGfucnzmcdul64.2 ??C (97.2 ??F)12/18/2019 10:38 AM EDTRespiratory Nzqr236312/18/2019 10:38 AM EDTOxygen Zkzqegqskl05%12/18/2019 10:38 AM EDTInhaled Oxygen Concentration--Xjtzto23.4 kg (206 lb)12/18/2019 10:38 AM SMNAihvkn786.2 cm (5' 7.01 )02/27/2019 11:07 AM EDTBody Mass Index32.26 02/27/2019 11:07 AM EDT Plan of Treatment DateTypeDepartmentCare Team (Latest Contact Info)Oznslmvrcad20/12/2025 11:00 AM ESTVisit (SP) Office Gynecology Oncology [address] [place] [address] [place] [address] Milly Cordoba MD [address] [place] [address] Other Specified noninflammatory disorders of vaginaHealth MaintenanceDue Date Last DoneCommentsAnxiety Cqkhhnjaw90/30/1976Depression Fpedlmmwz21/30/1976 Hepatitis C Bwhtvmhir84/30/1976DTaP,Tdap,Td Vaccine (1 - Tdap)1976CT Yefpoxuvretj02/30/2003Cologuard (FIT-DNA)11/25/20026802Mpknwfhcasv56/30/2003 Colorectal Cancer Qwubkztoa67/30/2003Fecal Occult Blood2002Lipid Screening 11/25/20028969Efkegxioyjbnh68/30/2003Pneumococcal Vaccine: 50+ (1 of 1 - PCV) 11/26/2007Shingrix Vaccine (1 of 2)11/26/2007Mammogram Ospvdxlhz94/12/2022 06/10/2020, 05/11/2019, 05/11/2019, Additional history existsAdvance Directive Idjqqbvyhr67/01/2025ovid-19 Vaccine (1 - 2024- season)2024Influenza Vaccine (#1)2024Diabetes Youzutgcl29/17/533139/, 11/15/2023, 10/30/2023, Additional history existsRSV Vaccine (1 - 1-dose 75+ series) 3Bone Density LaesabxwyIlaixulcs62/13/2020 Procedures Procedure NamePriorityDate/TimeAssociated DiagnosisCommentsEXTERNAL LAB 02/12/2025 8:39 AM EDT EXTERNAL LAB02/12/2025 8:39 AM EDT EXTERNAL LAB02/12/2025 8:39 AM EDT OUTSIDE SURG PATH SLIDE BYAZGLXexriqb03/15/2025 10:21 PM EDT Person encountering health services to consult on behalf of another person EXTERNAL LAB02/04/2025 2:41 PM EDT COMPREHENSIVE METABOLIC IWASDJphfske12/21/2019 3:05 PM EDT Preop examination SONNY III [...] SignatureCase Report Surgical Pathology Report ? Case: [id number] ? Authorizing Provider: ??Milly Cordoba MD Collected: ? 02/10/2025 10:21 PM ? Ordering Location: ? [facility] ?Received: ?02/10/2025 10:19 PM ? [facility] ? Pathologist: ? Stacy Hassan MD ? Specimen: ?Slide(s), 2 SLIDES ([id number]) ? 02/11/2025 3:16 PM [facility] MA[facility] LABFINAL DIAGNOSISReview of outside slides Vulva, biopsy: Consistent with condyloma.02/11/2025 3:16 PM [facility] at 1516 EDT Performing LabDiagnostic interpretation performed at: [facility], [address] [facility] [id number] CLIA# [id number] Plastic Eye Technician: Rudi Turner MD 02/11/2025 3:16 PM [facility] LABDisclaimerLaboratory Developed Test (LDT) Disclaimer: Performance characteristics of immunohistochemical, immunofluorescent, and chromogenic in-situ hybridization tests have been determined by the performing laboratory within the [facility] Department of Pathology and Laboratory Medicine ([facility], [facility], [facility], [facility], [facility], [facility], or [facility]) in a manner consistent with CLIA requirements. One or more of these tests may not have been cleared or approved by the FDA. The [facility] Department of Pathology and Laboratory Medicineis regulated under CLIA as qualified to perform high-complexity testing. These tests are used for clinical purposes. These should not be regarded as investigational or for research. Positive and negative controls stain appropriately.02/11/2025 3:16 PM EDT [facility] LABSpecimen (Source)Anatomical Location / Laterality Collection Method / VolumeCollection TimeReceived TimeBlocks or SlidesMICROSCOPE SLIDE / Vxinimp4002/10/2025 10:21 PM EDT1 10:19 PM EDT Narrative Authorizing ProviderResult TypeResult StatusMicmonalisa Cordoba MDSURGICAL PATHOLOGYFinal ResultPerforming OrganizationAddressCity/State/ZIP CodePhone Number [place] [phone] [place] [address], * (ABNORMAL) COMP METABOLIC PANEL (12/17/2018 3:05 PM EDT)ComponentValueRef RangeTest MethodAnalysis TimePerformed AtPathologist SignatureProtein, Total 7.66.3 - 8.0 g/dL12/18/2018 3:35 AM [facility] LaboratoriesAlbumin4.2 3.9 - 4.9 g/dL12/18/2018 3:35 AM [facility] FajkhjavnussQfnpadf99.6 (H)8.5 - 10.2 mg/dL12/18/2018 3:35 AM [facility] Bilirubin, Total0.30.2 - 1.3 mg/dL12/18/2018 3:35 AM [facility] LaboratoriesAlkaline Bofpmmkzong3723 - 123 U/L12/18/2018 3:35 AM [facility] RbbebdagjdiyXMN6618 - 35 U/L12/18/2018 3:35 AM [facility] KpfgyojsoaumJxpfjsc2632 - 99 mg/dL12/18/2018 3:35 AM [facility] LaboratoriesComment: The [place] Diabetes Association (ADA) provides guidance for cutoff [...] Standards of Medical Care in Diabetes 2016, [place] Diabetes Association. Diabetes Care. 2016.39(Suppl 1). CNF532 - 21 mg/dL12/18/2018 3:35 AM [facility] LaboratoriesCreatinine 0.730.58 - 0.96 mg/dL12/18/2018 3:35 AM [facility] LaboratoriesSodium 255384 - 144 mmol/L12/18/2018 3:35 AM [facility] LaboratoriesPotassium 4.43.7 - 5.1 mmol/L12/18/2018 3:35 AM [facility] LaboratoriesChloride 94805 - 105 mmol/L12/18/2018 3:35 AM [facility] LdxjjsviciokEB169(L)22 - 30 mmol/L12/18/2018 3:35 AM [facility] LaboratoriesAnion Ztp186 - 18 mmol/L12/18/2018 3:35 AM [facility] HhmfodfieyqjMYY104 - 38 U/L 12/18/2018 3:35 AM [facility] Clinic LaboratorieseGFR->60 12/18/2018 3:35 AM [facility] Clinic LaboratorieseGFR-All Other Races>60. 12/18/2018 3:35 AM ED[facility] Clinic LaboratoriesComment: eGFR (Estimated GFR) Units of [...] Fawad BRAYN.CNPLABORATORY Final ResultPerforming OrganizationAddressCity/State/ZIP CodePhone Number [facility] [address] [place] [address] [facility] [address] [place] [address] from Last 3 Months or Most Recently Relevant to Health Maintenance Insurance Care Teams Team MemberRelationshipSpecialtyStart DateEnd Date Darrell Weinstein [address] [facility] [address] [place] [phone] PCP - GeneralFamily Medicine11/06/18 Nereida Castro MD [address] [phone] ReferringObstetrics11/06/18
--- OUTSIDE RECORDS SUMMARY | 2025-02-25 13:23 | XMS_ITS | Encounter Summary ---
Author Organization [facility] Address [address] [place], [place] [address] Care Team Providers Care Bilingual Recruiter Name Role Phone Darrell Weinstein Yao Primary Care Provider [phone] Nereida Castro MD Unavailable [phone] Source Comments In the event this information is protected by the Federal Confidentiality of Alcohol and Drug AbusePatient Records regulations: The Federal rules restrict any use of the information to criminally investigate or prosecute any alcohol or drug abuse patient.[facility] Encounter Details DateTypeDepartmentCare Team (Latest Contact Info)Gkmjwbyhfpn38/23/2025Telephone Cancer Appts [address] [place] [address] Milly Cordoba MD [address] [place], [place] [id number] Social History Tobacco UseTypesPacks/DayYears UsedDateSmoking Tobacco: Every WmgHkzathnmnv891.8 Started: 1972Smokeless Tobacco: NeverAlcohol UseStandard Drinks/WeekCommentsNot Currently0 (1 standard drink = 0.6 oz pure alcohol)Area Deprivation IndexAnswer Date RecordedNational Score (1-100), lower number is lower riskNot on file 04/03/2020State Score (1-10), lower number is lower riskNot on file04/03/2020 Data from: https://www.neighborhoodatlas.[facility]/. Last address used for calculationNot on file04/03/2020CommentsNoSex and Gender Information ValueDate RecordedSex Assigned at BirthNot on fileLegal XkjLeuxlh13/02/2012 10:19 AM ESTGender IdentityNot on fileSexual OrientationNot on filedocumented as of this encounter Miscellaneous Notes * Telephone Encounter - Sarah Vizcaino - 02/18/2025 10:34 AM EDT I called Dr Castro office [phone] and spoke with Summer. Summer states [facility] re: our call per Farida FRIT BURNER patient needs Colposcopy with biopsy and would [...] date of procedure. I gave Summer our [place] office phone number to call back with any updates and also provided her with Dr Cordoba [place] [phone] Castro to call [...] results. ----- Message ----- From: Farida Sinclair, SEISMOGRAPH OPERATOR HELPER.MAKE READY WORKER Sent: 02/11/2025 3:41 PM EDT To: Milly Cordoba MD; Shantel Gutierrez # Hi all, path review back, patient just has benign warts. However I don't see a pap result from thatvisit, am I missing it? 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 She might need something with her cervix. Can we please get her pap? If everything is normal she doesn't need us unless Dr. Castro needs surgical help. Thanks. Farida documented in this encounter Plan of Treatment DateTypeDepartmentCare Team (Latest Contact Info)Jjxrcdulirr00/12/2025 11:00 AM ESTVisit (SP) Office Gynecology Oncology [address] [place] [address] [place] [address] Milly Cordoba MD [address] [place] [address] Other Specified noninflammatory disorders of vaginadocumented as of this encounter Visit Diagnoses Not on filedocumented in this encounter Care Teams Team MemberRelationshipSpecialtyStart DateEnd Date Darrell Weinstein [address] [facility] [address] [place] [phone] PCP - GeneralFamily Medicine11/06/18 Nereida Castro MD [address] [address] ReferringObstetrics11/06/18documented as of this encounter
--- OUTSIDE RECORDS SUMMARY | 2025-02-25 13:23 | XMS_ITS | Encounter Summary ---
Author Organization [facility] Address [address] [place] [address] Care Team Providers Care Frameman Name Role Phone Sandra Lewis DO Primary Care Provider [phone] Reason for Visit * ReasonOnset KceqSwovbzdvHwkues94/23/2025ppt needed Encounter Details DateTypeDepartmentCare Team (Latest Contact Info)Jtxulfqbbpg99/23/2025Telephone [facility] [address] [facility] [address] [place] [phone] Nereida Castro MD [address] [facility] [address] [place] [address] Biopsy (Appt needed ) Social History Tobacco UseTypesPacks/DayYears UsedDateSmoking Tobacco: Every LkpVgiqegykdi382.8 Started: 1973Smokeless Tobacco: Current Comments:Smokes 11-20 cigs p er day Alcohol UseStandard Drinks/WeekCommentsNever0 (1 standard drink = 0.6 oz pure alcohol)caffeine intake: occasionalCommentsNoSex and Gender Information ValueDate RecordedSex Assigned at BirthNot on fileLegal ByoWanxvc24/15/2023 8:02 PM EDTGender IdentityNot on fileSexual OrientationNot [...] Le - 02/18/2025 10:33 AM EDT [facility] called. Patient was referred over to [...] when the patient is scheduled here at [phone]. If we have any questions we can call 's nurse at [phone]. documented in this encounter Plan of Treatment DateTypeDepartmentCare Team (Latest Contact Info)Fdeacdlwilg05/24/2026 4:00 PM EDTOffice Visit [facility] [address] [facility] [address] [place] [address] Luan Kincaid MD [address] [facility] [address] [place] [address] 08/10/2025 1:15 PM EDTOffice Visit [facility] [address] [facility] [address] [place] [address] Nereida Castro MD [address] [facility] [address] [place] [address] documented as of this encounter Visit Diagnoses Not on filedocumented in this encounter Care Teams Team MemberRelationshipSpecialtyStart DateEnd Date Sandra Lewis DO [address] [facility] [place] [phone] PCP - GeneralFamily Medicine10/15/24documented as of this encounter
--- OUTSIDE RECORDS SUMMARY | 2025-02-25 13:37 | XMS_ITS | CCD ---
Author Organization [facility] Care Team Providers Care Carpenter Mold Name Role Phone MATTHEW VOSS MD Unavailable Unavailable UNASSIGNED, DOCTOR Unavailable Unavailable SUKHWINDER, ELOISA Unavailable Unavailable SUKHWINDER, ELOISA Unavailable Unavailable SUKHWINDER, ELOISA Unavailable Unavailable JONAS YODER Unavailable Unavailab Tray [place] Unavailable [phone] LeonardoJulio chávez Unavailable Crispin Looney Unavailable Ruben Hahn Unavailable [...] Unavailable DO Sandra Keita Primary Care Provider [phone] DO Sandra Keita Attending Provider Reyna Dallas Unavailable Brayden Noble Unavailable DO Jonas Yoder Primary Care Provider NITZA Russell Attending Provider Keita, Sandra A Primary Care Provider Keita, Sandra A Attending Provider Keita, DO Sandra A Primary Care Provider Keita, Sandra A Attending Provider NITZA Russell Attending Provider [phone] DO Edgar Valenzuela Emergency Provider MD Elva Florian Admit Provider [phone] MD Elva Florian Attending Provider BRENDA Pazher Other Provider Unavailable DO Elly Yoo Other Provider MD Ric Lamar Other Provider MD Jonas Ch Other Provider MD Roland Faust Other Provider MD Manjit Barbosa Other Provider NITZA Fritz Other Provider MD Stephanie Stoll Other Provider MD Jann Kaplan Other Provider MD Cara Tenorio Other Provider Fidel [facility] Elizabeth Samayoa Other Provider MD Ashley [...] DO Lit Clark Other Provider Dar [facility] Dayana Other Provider DO Roque Isidro Other Provider NITZA Calvo Other Provider CHERYL Medina Other Provider GRADY Ibraihm-Vamsi Cartagena Other Provider MD Chaka Frye Attending Provider [phone] DO Rl Villavicencio Emergency Provider [phone] DO Jluis Campos Admit Provider Saranya Wright Other Provider Unavailable Fay, PhD Cash Other Provider DO Jelly Tuttle Other Provider MD oJhn Murillo Other Provider [phone] DO Lit Clark Other Provider Dar [facility] Dayana Other Provider DO Roque Isidro Other Provider NITZA Calvo Other Provider CHERYL Medina Other Provider GRADY Ibrhaim-Vamsi Cartagena Other Provider MD Chaka Frye Attending Provider NITZA Salinas Referring Provider [phone] Keita, DO Sandra A Primary Care Provider MD Jonas Ch Referring Provider MD Roland Faust Attending Provider BARRIE Fritz Attending Provider [phone] Keita DO, Sandra Primary Care Provider Keita, [...] Sandra A Primary Care Provider [phone] Angelique Russell APRN Attending Provider Keita DO, Sandra A Attending Provider Edgar Eden DO Attending Provider Rosibel VARGAS, Manjit Other Provider Samm Medina MD Attending Provider Keita DO, Sandra A Referring Provider NO FAMILY, PHYSICIAN Primary Care Provider Karl Vazquez DPM Attending Provider Shantel Norton APRN Primary Care Provider Shantel Norton APRN Attending Provider [phone] Cierra GODDARD-LITHOGRAPHIC PLATE MAKER APPRENTICE, Shantel A Primary Care Pro vider TRABOULJOANNE, MOURHAF Attending Unavailable TRABOULSSI, MOURHAF Referring Unavailable ROHRBACHER, SHANTEL A Primary Care Unavailab le TRABOULSSI, MOURHAF Attending Unavailable TRABOULSSI, MOURHAF Referring Unavailable KEITA, SANDRA A Primary Care Unavailable TRABOULTWANI, MOURHAF Attending Unavailable JONAS CH Referring Unavailable KEITA, SANDRA A Primary Care Unavailable Samm Medina MD Attending Provider [phone] Samm Medina MD Other Provider Angelique Russell APRN Attending Provider [phone] Keita, Sandra A Primary Care Unavailable Tray Nava Admitting Unavailabl e Tray Nava Attending Unavailabl e Keita, Sandra A Primary Care Unavailable Asaad, Imad Admitting Unavailable Asaad, Imad Attending Unavailable Keita, Sandra A Primary Care Unavailable Asaad, Imad Admitting Unavailable Asaad, Imad Attending Unavailable Deneen Frost Admitting Unavailable Deneen Frost Attending Unavailable Keita, Sandra A Primary Care Unavailable Rl Villavicencio Admitting Unavailable Rl Villavicencio Attending Unavailable Oz Kincaid Referring Unavailable Keita, Sandra A Primary Care Unavailable Nataliya Jane Admitting Unavail able Nataliya Jane Attending Unavail able Rohrbacher Shantel Attending Unavailable Rohrbacher, Shantel Admitting Unavailable Rohrbacher, Shantel Primary Care Unavailable Samm Medina Admitting Unavailable Samm Medina Attending Unavailable Ashleyacher, Shantel Primary Care Unavailable Karl Fritz Admitting Unavailable Karl Fritz Attending Unavailable Angelique Russell Consulting Unavailable Traboulssi, Mourhaf Admitting Unavailable Traboulssi, Mourhaf Attending Unavailable Keita, Sandra A Primary Care Unavailable Keita, Sandra A Primary Care Unavailable Keita, Sandra A Attending Unavailable Keita, Sandra A Admitting Unavailable Lti Clark Consulting Unavailab Jori Carvalho Admitting Unavailable Keita, Sandra A Primary Care Unavailable Priscilla Lang Attending Unavailable Keita DO, Sandra Primary Care Provider [phone] OZ KINCAID Attending Unavailable OZ KINCAID Attending Unavailable KARL FRITZ Attending Unavailable KARL FRITZ Attending Unavailable KARL FRITZ Attending Unavailable OZ KINCAID Attending Unavailable OZ KINCAID Referring Unavailable OZ KINCAID Attending Unavailable OZ KINCAID Attending Unavailable KARL FRITZ Attending Unavailable OZ KINCAID Attending Unavailable OZ KINCAID Referring Unavailable OZ KINCAID Referring Unavailable OZ KINCAID Attending Unavailable LINWOOD IRWIN Attending Unavailable LINWOOD IRWIN Attending Unavailable Allergies Allergy ClassificationReported Allergen(s)Allergy TypeDate of OnsetReaction(s) Facility (20 sources)Sulfamethoxazole; Translations: [sulfamethoxazole]Drug Allergy 72-80-2020[facility]wx[facility] ([facility] sources)Sulfonamides (Antibiotic); Translations: [SULFA (SULFONAMIDE ANTIBIOTICS)]Allergy to xlhkyatmu54-56-0005JB intolerance, Unknown, Nausea/vomitingPrem[facility] ([facility])Sulfonamides (Antibiotic)Drug Xygelup93-39-9735YQ intolerance, UnknownSaint [facility] ([facility] sources)pioglitazone; Translations: [pioglitazone]Drug Vwjfnyd40-85-0694cbpSelect Medical [facility], [facility] Medications Current Medications MedicationDrug Class(es)DatesSig (Normalized)Sig (Original)3 ML semaglutide 1.34 MG/ML Pen Injector [Ozempic] (20 sources)Start: 90-08-0111jkxcef 0.5 mg by subcutaneous injection every week Ozempic (1 MG/DOSE) 4 MG/3ML 1mg Subcutaneous once weekly for 28 days Stop ozempic 0.5mg dose Feb, Activeinject 1 mg by subcutaneous injection every weekOzempic (1 MG/DOSE) 4 MG/3ML 1mg Subcutaneous once weekly for 28 days Activeapixaban 5 mg oral tablet (20 sources)Factor Xa InhibitorStart: 07-08-2024 End: 31-90-2450qezx 1 tablet by mouth twice dailyStart: 09-14-2023 End: 17-64-9691gcwl 1 tablet by mouth twice dailyApixaban (Eliquis) 5 mg tablet Discontinued 5 MG PO Twice daily 180 December 03, 2023 1:05pm July 08, 2024 11:49amaspirin 81 mg delayed release oral tablet (20 sources)Platelet Aggregation Inhibitor, Nonsteroidal Anti-inflammatory Drug Start: 41-22-7117nhmo 1 tablet by mouth once dailytake 1 tablet by mouth once dailyAspir-Low 81 MG 1 tablet Orally Once a day Activecarvedilol 12.5 mg oral tablet (20 sources)alpha-Adrenergic Debbie, beta-Adrenergic BlockerStart: 03-09-2024 End: 94-86-6668lhyf 1 tablet by mouth in the morningcarvedilol (Coreg) 12.5 MG tablet Take 12.5 mg by mouth in the morning and 12.5 mg in the evening. Take with meals. 03/09/2024 03/09/2025 ActiveContinuous Blood Gluc Sensor (FreeStyle Brent 14 Day Sensor) misc (20 sources)Start: 48-91-4977Xzwksrfpaj Blood Gluc Sensor (FreeStyle Brent 14 Day Sensor) misc apply 1 SENSOR as directed every 14 days use with DEVICE to MONIT... (REFER TO PRESCRIPTION NOTES). 12/21/2022 Activedocusate sodium 100 mg oral capsule (20 sources)Start: 88-95-5754crcs 1 capsule by mouth in the morningDocusate Sodium (DSS) 100 MG capsule Take 100 mg by mouth in the morning and 100 mg in the evening.06/12/2023 ActiveStart: 02-09-2021 End: 64-99-6185hskv 1 capsule by mouth three times dailyDocusate Sodium (Stool Softener) 100 mg capsule Discontinued 100 MG PO Three times daily June 12, 2023 9:08am June 12, 2023 4:43pmtake 1 capsule by mouth twice daily docusate sodium (Colace) 100 mg capsule Take 1 capsule (100 mg) by mouth 2 times a day. ActiveStool Softener 100 MG 3 tablet as needed in the morning and 1 tablet in the evening Orally bid PRN Activedonepezil hydrochloride 10 mg oral tablet (20 sources)Start: 02-25-2024 End: 62-89-8848lokrbnyfg (Aricept) 10 MG tablet Indications: Cognitive decline 2 tabs QAM 60 tablet 5 07/21/2024 Activetake 1 tablet by mouth twice daily donepezil (Aricept) 10 mg tablet Take 1 tablet (10 mg) by mouth 2 times a day. ActiveEasy Touch Lancing Device - (4 sources)Easy Touch Lancing Device - as directed Activeempagliflozin 25 mg oral tablet (20 sources)Sodium-Glucose Cotransporter 2 InhibitorStart: 02-09-2021 End: 58-42-4520jezq 1 tablet by mouth once [id number] 0.3 ml EPINEPHrine 1 mg/ml auto-injector (5 sources)alpha-Adrenergic Agonist, beta-Adrenergic Agonist, Catecholamine Start: 90-59-8541Mxbxs Glucose Sensor (Freestyle Brent 14 Day Sensor) kit (20 sources)Start: 02-69-0445Mvztx Glucose Sensor (Freestyle Brent 14 Day Sensor) kit Active 0 .ROUTE .MEDSUPPLY December 29, 2024 7:04am As directed Change every 14 daysStart: 01-10-2024 End: 00-68-4828Faxkw Glucose Sensor (Freestyle Brent 14 Day Sensor) kit Discontinued 0 .ROUTE .MEDSUPPLY January 10, 2024 12:00am December 29, 2024 7:04am As directed Change every 14 daysStart: 21-29-4349Hyptc Glucose Sensor (Freestyle Brent 14 Day Sensor) kit Active 0 .ROUTE .MEDSUPPLY 2 January 09, 2024 11:00pm As directed Change every 14 daysStart: 01-10-2024 Flash Glucose Sensor (Freestyle Brent 14 Day Sensor) kit Active 0 .ROUTE .MEDSUPPLY January 10, 2024 12:00am As directed Change every 14 daysStart: 07-22-2023 End: 19-64-1185Vqgvt Glucose Sensor (Freestyle Brent 14 Day Sensor) kit Discontinued 0 .ROUTE .MEDSUPPLY July 22, 2023 12:00am April 28, 2024 12:40pm As directed Change every 14 daysStart: 07-22-2023 End: 58-39-4051Sepay Glucose Sensor (Freestyle Brent 14 Day Sensor) kit Discontinued 0 .ROUTE .MEDSUPPLY July 21, 2023 11:00pm April 28, 2024 11:40am As directed Change every 14 daysStart: 60-19-1072Fuegz Glucose Sensor (Freestyle Brent 14 Day Sensor) kit Active 0 .ROUTE .MEDSUPPLY July 21 12:00am As directed Change every 14 daysfolic acid 1 mg oral tablet (20 sources)Start: 60-04-3283yfmr 1 tablet by mouth once dailyStart: 02-09-2021 End: 49-81-5541jgtu 1 tablet by mouth once dailyfolic acid (Folvite) 1 MG tablet Take 1,000 mcg by mouth Daily 10/16/2023 ActiveFreeStyle Brent 14 Day Sensor - (20 sources)FreeStyle Brent 14 Day Sensor - apply 1 SENSOR as directed every 14 days use with DEVICE to MONITORBLOOD SUGAR Sub Q Change every 14 days for 28 days ActiveFreeStyle Brent 14 Day Sensor - apply 1 SENSOR as directed every 14 days use with DEVICE to MONITORBLOOD SUGAR before meals at bedtime and if needed SQ 28 days for 28 ActiveFreeStyle Brent 14 Day Sensor - apply 1 SENSOR as directed every 14 days use with DEVICE to MONITORBLOOD SUGAR before meals at bedtime and if needed SQ as directed for 28 days ActiveFreeStyle Brent 14 Day Sensor - apply 1 SENSOR as directed every 14 days use with DEVICE to MONITOR BLOOD SUGAR before meals at bedtime and if needed for 28 ActiveFreeStyle Brent Sensor (20 sources)FreeStyle Brent Sensor use with brent reader SQ change q 14 days, check glucose ac, hs and prn for 84 days ActiveFreeStyle Brent Sensor use with brent reader SQ change q 14 days, check glucose ac, hs and prn Activefurosemide 20 mg oral tablet (19 sources)Loop DiureticStart: 05-07-2024 End: 70-34-0321chal 1 tablet by mouth every other dayfurosemide (Lasix) 20 mg tablet Indications: Shortness of breath , Edema, unspecified type Take 1 tablet (20 mg) by mouth every other day. 45 tablet 3 05/07/2024 05/07/2025 ActiveStart: .5 ml insulin glargine 300 unt/ml pen injector (20 sources)Insulin AnalogStart: 01-05-2025 End: 78-59-0025beqmgn 23 [IU] by subcutaneous injection once daily in the morningStart: 04-28-2024 End: 32-92-9287ldgwiz 22 [IU] by subcutaneous injection once daily in the morningInsulin Glargine U-300 Conc (Toujeo Solostar U-300 Insulin) 300 unit/mL (1.5 mL) insulin pen Discontinued 22 UNIT SUBCUT Every morning January 05, 2025 1:41pm January 05, 2025 2:45pmStart: 06-12-2023 End: 79-13-6262ydvfmg 20 [IU] by subcutaneous injection once dailyInsulin Glargine U-300 Conc (Toujeo Solostar U-300 Insulin) 300 unit/mL (1.5 mL) insulin pen Discontinued 20 UNIT SUBCUT Daily November 14, 2023 4:09pm April 28, 2024 1:59pmStart: 53-62-7497Pmhtqc SoloStar 300 UNIT/ML injection inject 20 units subcutaneously as directed 12/12/2022 ActiveStart: 98-80-6416gfpiudy glargine (Toujeo Solostar- 1 unit dial) 300 unit/mL (1.5 mL) injection 20 Units. 12/12/2022ctiveStart: 10-10-2022 End: 57-83-2624Kdzjadv Glargine U-300 Conc (Toujeo Solostar U-300 Insulin) 300 unit/mL (1.5 mL) insulin pen Discontinued UNIT SUBCUT October 10, 2022 12:00am June 12, 2023 9:13amStart: 02-95-1664xaoszk 20 [IU] by subcutaneous injection once dailyToujeo SoloStar 300 UNIT/ML 20 units once daily Subcutaneous as directed for 90 days (titrate up to30 units/day) Dec, ActiveInsulin Lispro 100 unit/mL insulin pen (20 sources)Start: 51-26-2664Zoboigy Lispro 100 unit/mL insulin pen Active 0 SUBCUT Before meals and at bedtime August 20, 2024 12:03pm subcutaneously before meals and at bedtime; 1:40 corrective scale (expect up to 20 units/day) Start: 12-23-2023 End: 11-45-1830Jaocpfm Lispro 100 unit/mL insulin pen Discontinued 0 SUBCUT Before meals and at bedtime December 23, 2023 4:11pm August 20, 2024 12:04pm subcutaneously before meals and at bedtime; 1:50 corrective scale (expect up to 20 units/day)Start: 88-41-1563Tmsjlnn Lispro 100 unit/mL insulin pen Active 0 SUBCUT Before meals and at bedtime December 23, 2023 4:11pm subcutaneously before meals and at bedtime; 1:50 corrective scale (expect up to 20 units/day) Start: 82-31-8617Ogxdlog Lispro 100 unit/mL insulin pen Active 0 SUBCUT Before meals and at bedtime December 23, 2023 3:11pm subcutaneously before meals and at bedtime; 1:50 corrective scale (expect up to 20 units/day)Start: 06-12-2023 End: 60-68-6612Zsbavil Lispro 100 unit/mL insulin pen Discontinued 0 SUBCUT Before meals and at bedtime June 12, 2023 9:05am December 23, 2023 4:14pm subcutaneously before meals and at bedtime; 1:50 corrective scale (expect up to 20 units/day)Start: 06-12-2023 End: 55-59-1476Lakdyks Lispro 100 unit/mL insulin pen Discontinued 0 SUBCUT Before meals and at bedtime June 12, 2023 8:05am December 23, 2023 3:14pm subcutaneously before meals and at bedtime; 1:50 corrective scale (expect up to 20 units/day)ketoconazole 20 mg/ml medicated shampoo (2 sources)Azole AntifungalStart: ml ketorolac tromethamine 30 mg/ml cartridge (2 sources)Nonsteroidal Anti-inflammatory Drug, Cyclooxygenase InhibitorStart: 01-03-2024 End: 03-69-3323gjtvsjlxy (Toradol) injection 30 mgStart: 01-03-2024 End: 41-39-6529sjjlwp 30 mg by subcutaneous injection once30 mg, Intramuscular, Once, On Sat01/03/24 at 1745, For 1 dose, SubcutaneousL. acidophilus/Bifid. animalis (4 sources)Start: 96-75-2061bajr 1 tablet by mouth once dailyStart: 08-25-2024 take 1 tablet by mouth once dailyL. acidophilus/Bifid. animalis Active 1 TAB PO Daily August 25, 2024 12:00ammagnesium oxide 400 mg oral tablet (20 sources)Start: 01-29-2024 End: 80-92-8188hzgy 1 tablet by mouth twice dailyStart: 86-54-8087dcrd 1 tablet by mouth twice dailyMagnesium Oxide Active 0 .ROUTE .COMPLEX 180 January 29, 2024 10:22am TAKE 1 TABLET BY MOUTH TWICEA DAYStart: 11-18-2023 End: 15-57-4800oncj 1 tablet by mouth in the morningmagnesium oxide (Mag-Ox) 400 (240 Mg) MG tablet Take 400 mg by mouth in the morning and 400 mg before bedtime. 01/02/2024 ActiveStart: 09-14-2023 End: 49-31-9365huee 1 tablet by mouth once dailyMagnesium Oxide (Magox) 400 mg (241.3 mg magnesium) tablet Discontinued 400 MG PO Daily September 14, 2023 12:00am November 18, 2023 2:05pmmemantine hydrochloride 10 mg oral tablet (20 sources)J-ikmrep-Y-aspartate Receptor AntagonistStart: 87-16-3258lssaaqxbi (Namenda) 10 MG tablet Indications: Cognitive decline 1 tab BID 60 tablet 5 07/21/2024 ActiveStart: 04-28-2024 End: 61-17-0588axfembsds (Namenda) 10 MG tablet Indications: Cognitive decline 1 tab BID 60 tablet 5 07/21/2024 ActiveStart: 02-25-2024 End: 21-91-8347qpxgjaban (Namenda) 10 MG tablet Indications: Cognitive decline 1 tab every day x3-5 days then BID 60 tablet 3 02/25/2024 07/21/2024 Discontinued (Reorder)metFORMIN hydrochloride 500 mg oral tablet (20 sources)BiguanideStart: 08-26-2023 End: 79-71-2777hhcu 1 tablet by mouth twice daily at mealtimeMetformin 500 mg tablet Discontinued 0 .ROUTE .COMPLEX 180 August 20, 2024 12:01pm January 05, 2025 2:46pm take 1 tablet by mouth twice a day with mealsStart: 02-09-2021 End: 82-39-1012tumVQQYXT (Glucophage) 500 MG tablet Take 500 mg by mouth 08/26/2023 ActiveMiscellaneous Medical Supply (20 sources)Start: 05-64-2055Zswlhpphwggee Medical Supply Active 0 .Route 1 November 26, 2023 2:24pm Hospital BedStart: 11-26-2023 End: 99-33-8410Zlsptmfotjqlx Medical Supply Discontinued 0 .Route 1 November 26, 2023 2:22pm November 26, 2023 2:25pm As directedStart: 2023 End: 22-95-8442Drausxoouofol Medical Supply Discontinued 0 .Route 1 2023 2:20pm November 26, 2023 2:23pm As directedStart: 09-30-2023 End: 54-79-1643Dmdqkguoojiko Medical Supply Discontinued 0 .Route 1 September 30, 2023 8:33am 2023 2:21pm As directedStart: 60-31-9682Tbqwoggejgweb Medical Supply Active 0 .Route 1 September 30, 2023 8:33am As directedStart: 09-17-2023 End: 46-28-2896Juidjbozypzcr Medical Supply Discontinued 0 .Route 1 September 17, 2023 12:00am September 30, 2023 8:33am As directedStart: 01-95-2439Whnbodsvydwbu Medical Supply Active 0 .Route 1 September 17, 2023 12:00am As directedMultivitamin preparation (20 sources)Start: 88-26-7260qjho 1 tablet by mouth once dailyMultivitamin Active 1 TAB PO Daily June 12, 2023 9:10amStart: 68-94-6701fodb 1 tablet by mouth once dailyMultivitamin Active 1 TAB PO Daily June 12, 2023 8:10am Start: 02-09-2021 End: 90-87-7335wkus 1 tablet by mouth twice dailyMultivitamin Discontinued 1 TAB PO Twice daily February 09, 2021 12:00am June 12, 2023 9:13amStart: 02-09-2021 End: 02-86-5681ropt 1 tablet by mouth twice dailyMultivitamin Discontinued 1 TAB PO Twice daily February 08, 2021 11:00pm June 12, 2023 8:13amStart: 45-27-9482tpap 1 tablet by mouth twice dailyMultivitamin Active 1 TAB PO Twice daily February 08, 2021 11:00pmStart: 52-39-2484tybm 1 tablet by mouth twice dailyMultivitamin Active 1 TAB PO Twice daily February 09, 2021 12:00amtake 1 tablet by mouth once dailyMultivitamin - 1 tablet Orally Once a day Active Multivitamin tablet (20 sources)Start: 74-65-1551xqiy 1 tablet by mouth once dailyMultivitamin tablet Active 1 TAB PO Daily June 12, 2023 9:10am Complies with drug therapyStart: 54-21-5345tpca 1 tablet by mouth once dailyStart: 41-78-6706lhmn 1 tablet by mouth once dailyMultivitamin tablet Active 1 TAB PO Daily June 12, 2023 9:10amStart: 96-13-1422urnv 1 tablet by mouth once dailyMultivitamin tablet Active 1 TAB PO Daily June 12, 2023 8:10amnortriptyline 25 mg oral capsule (20 sources)Tricyclic AntidepressantStart: 02-25-2024 End: 66-47-8634tfbv 1 capsule by mouth at bedtimenortriptyline (Pamelor) 25 MG capsule Indications: Neurogenic pain Take 1 capsule (25 mg) by mouth at bedtime 30 capsule 5 07/21/2024 ActiveStart: 06-18-2023 End: 05-31-6131tveb 100 mg by mouth once dailyNortriptyline Discontinued 100 MG PO Daily 180 90 October 16, 2023 7:37am November 18, 2023 2:05pmStart: 01-04-2023 End: 50-04-5405syii 1 capsule by mouth once dailyNortriptyline 50 mg capsule Discontinued 50 MG PO Daily 90 90 November 18, 2023 2:01pm February 03, 2024 12:05pmStart: 01-04-2023 End: 56-56-7192jjjy 2 capsules by mouth once daily at bedtimenortriptyline (Pamelor) 50 mg capsule Take 2 capsules (100 mg) by mouth once daily at bedtime. 01/04/2023 12/16/2023 Discontinued (Therapy completed)Start: 02-09-2021 End: 93-37-8722ztmp 1 capsule by mouth twice dailyNortriptyline 50 mg capsule Discontinued 50 MG PO Twice daily June 12, 2023 9:07am June 18, 2023 8:10pmtake 1 capsule by mouth every twenty-four hoursNortriptyline HCl 50 MG 1 capsules Orally Once a day Activeomeprazole 20 mg delayed release oral capsule (20 sources)Proton Pump InhibitorStart: 82-95-2972chap 1 capsule by mouth once dailyStart: 07-01-2023 End: 65-49-4243igqe 1 capsule by mouth once dailyOmeprazole 20 mg capsule,delayed release(DR/EC) Discontinued 0 .ROUTE .COMPLEX 90 January 06, 2024 12:36pm September 10, 2024 12:44pm take 1 capsule by mouth once dailyStart: 01-02-2023 End: 13-06-2763orvbsbtcct (PriLOSEC) [address] capsule 01/02/2023 ActiveStart: 02-09-2021 End: 95-65-4225ltvl 1 tablet by mouth once dailyOmeprazole 20 mg Tablet,Delayed Release (Dr/Ec) Discontinued 20 MG PO Daily February 09, 2021 12:00am July 01, 2023 9:09amOne Touch Ultra Mini Glucometer 1 meter (4 sources)One Touch Ultra Mini Glucometer 1 meter as directed E11,9 as directed Activeozempic (1 mg/dose) 4 mg/3ml solution pen-injector (5 sources)inject 1 mg by subcutaneous injection every weekOzempic (1 MG/DOSE) 4 MG/3ML 1mg Subcutaneous once weekly for 28 days ActiveOzempic, 1 MG/DOSE, 4 MG/3ML solution pen-injector (20 sources)Start: 63-64-3573krhobn 1 mg by subcutaneous injection every week Ozempic, 1 MG/DOSE, 4 MG/3ML solution pen-injector Administer 1mg subcutaneously once weekly 12/10/2022 Activepregabalin 300 mg oral capsule (20 sources)Start: 76-21-8047bqpr 2 capsules by mouth once daily at bedtime Start: 07-10-2024 End: 64-58-5052odlt 1 capsule by mouth twice dailypregabalin (Lyrica) 300 MG capsule Indications: Neurogenic pain TAKE 1 CAPSULE BY MOUTH TWICE A DAY60 capsule 3 11/02/2024 ActiveStart: 01-15-2024 End: 19-36-3059qhts 1 capsule by mouth once dailyPregabalin 300 mg capsule Discontinued 300 MG PO Daily 90 90 July 03, 2024 1:03pm October 01, 2024 3:16pm Start: 57-53-9993Jsyadnhcef Active MG PO January 15, 2024 12:00amStart: 17-11-8037nmcx 1 capsule by mouth twice dailypregabalin (Lyrica) 300 MG capsule Indications: Neurogenic pain TAKE 1 CAPSULE BY MOUTH TWICE A DAY60 capsule 3 01/07/2024 ActiveStart: 11-18-2023 End: 17-76-0696htgv 1 capsule by mouth twice dailyPregabalin (Lyrica) 150 mg capsule Discontinued 150 MG PO Twice daily November 18, 2023 12:00am January 15, 2024 3:40pmSemaglutide (6 sources)Start: 51-03-7578suisvg 2 mg by subcutaneous injection every week Semaglutide (Ozempic) 2 mg/dose (8 mg/3 mL) pen injector Active 2 MG SUBCUT every week April 28, 2024 1:00am Complies with drug therapyStart: 77-89-4902xztzxw 2 mg by subcutaneous injection every weeksemaglutide (Ozempic) 1 mg/dose (4 mg/3 mL) pen injector (6 sources)Start: 31-51-3596pydzyqaksoh (Ozempic) 1 mg/dose (4 mg/3 mL) pen injector 2 mg 1 (one) time per week. 12/10/2022 ActiveStart: 31-32-8400beqpun 1 mg by subcutaneous injection every weeksemaglutide (Ozempic) 1 mg/dose (4 mg/3 mL) pen injector Administer 1mg subcutaneously once weekly 12/10/2022 Active Semaglutide (Ozempic) 2 mg/dose (8 mg/3 mL) pen injector (14 sources)Start: 24-91-0644kekqqr 2 mg by subcutaneous injection every week Semaglutide (Ozempic) 2 mg/dose (8 mg/3 mL) pen injector Active 2 MG SUBCUT every week April 28, 2024 1:00amStart: 81-75-8574xtvwja 2 mg by subcutaneous injection every weekSemaglutide (Ozempic) 2 mg/dose (8 mg/3 mL) pen injector Active 2 MG SUBCUT every week April 28, 2024 12:00amsertraline 50 mg oral tablet (16 sources)Serotonin Reuptake InhibitorStart: 27-96-5309pahi 1 tablet by mouth once dailysertraline (Zoloft) 50 MG tablet Take 50 mg by mouth Daily 01/12/2025 ActiveStart: 12-15-2024 End: 67-74-1017jitp 1 tablet by mouth once dailySertraline 25 mg tablet Discontinued 25 MG PO Daily January 11, 2025 11:49am January 12, 2025 2:36pmsimvastatin 20 mg oral tablet (20 sources)HMG-CoA Reductase InhibitorStart: 04-30-2024 End: 25-66-1277nbxf 2 tablets by mouth once dailyStart: 94-05-7095dxph 1 tablet by mouth at bedtimesimvastatin (Zocor) 40 MG tablet Take 40 mg by mouth at bedtime 12/04/2022 ActiveStart: 02-09-2021 End: 56-16-9666tynl 1 tablet by mouth once dailySimvastatin 20 mg Tablet Discontinued 20 MG PO Daily February 09, 2021 12:00am April 30, 2024 11:27am traMADol hydrochloride 50 mg oral tablet (3 sources)Opioid AgonistStart: 38-64-0498sybs 1 tablet by mouth twice daily as neededvarenicline 1 mg oral tablet (20 sources)Partial Cholinergic Nicotinic AgonistStart: 97-62-2112gjgv 1 tablet by mouth twice dailyVarenicline Tartrate 1 MG 1 tablet after eating with a full glass of water Orally Twice a day for 30 days To fill after completing starter pack Nov, ActiveStart: 52-29-3536Kijtkdyzfaz Tartrate (Starter) 0.5 MG X 11 & 1 MG X 42 as directed Orally as directed for 30 days Nov, Active Start: 36-83-9734xwig 1 mg by mouth twice dailyVarenicline Tartrate 1 MG as directed Orally Twice a day for 30 day(s) To start after completing starter pack Mar, ActiveStart: 28-96-9070Qmlfugdvfmy Tartrate 0.5 MG 1 tablet with food and water daily days 1-3 then increase to twice daily on days 4-7 Orally Once a day for 7 day(s) Sep, Not-TakingStart: 27-44-9167lzxp 1 tablet by mouth twice dailyVarenicline Tartrate 1 MG 1 tablet after eating with a full glass of water Orally Twice a day for 30 days Sep, Not-Takingvitamin b12 2.5 mg oral tablet (20 sources)Vitamin R95Jboue: 88-74-6268cmoigbpikznzmm (Vitamin B-12) 2500 MCG tablet 11/14/2023 ActiveStart: 43-18-5384gfpe 1 capsule by mouth once daily Start: 02-09-2021 End: 55-11-0879owdu 1 tablet by mouth once dailyCyanocobalamin (Vitamin B-12) (Vitamin B-12) 1,000 mcg Tablet Discontinued 1000 MCG PO Daily February 09, 2021 12:00am December 17, 2021 5:58amRA Vitamin B-12 Not-TakingRA Vitamin B-12 Active Completed/Discontinued Medications MedicationDrug Class(es)DatesSig (Normalized)Sig (Original)acetaminophen 325 mg oral tablet (20 sources)Start: 12-13-2021 End: 47-97-0820xyqb 1-3 tablets by mouth every six hours as needed for pain Acetaminophen 325 mg Tablet Discontinued 650 MG PO Every 6 hours as needed for Pain Scale 1 - 3 or fever December 13, 2021 12:00am December 17, 2021 5:59am Start: 12-13-2021 End: 81-03-5334driq 650 mg by mouth every six hoursAcetaminophen Discontinued 650 MG PO Every 6 hours December 13, 2021 12:00am December 17, 2021 5:59am Admelog (9 sources)Admelog Not-TakingAdmelog Activeamiodarone hydrochloride 200 mg oral tablet (20 sources)AntiarrhythmicStart: 10-07-2023 End: 20-24-2183nawk 1 tablet by mouth twice dailyAmiodarone 200 mg tablet Discontinued 200 MG PO Twice daily November 04, 2023 12:00am April 14, 2024 10:39amamoxicillin 875 mg / clavulanate 125 mg oral tablet (20 sources)Penicillin-class AntibacterialStart: 12-15-2024 End: 93-17-1328gakj 1 tablet by mouth twice dailyAmoxicillin-Pot Clavulanate 875-125 mg tablet Discontinued 1 TAB PO Twice daily December 15, 2024 12:00am January 05, 2025 1:40pmStart: 01-15-2024 End: 47-24-9590Wujlvmvtims-Pot Clavulanate 875-125 mg tablet Discontinued TAB PO January 15, 2024 12:00am April 14, 2024 10:39am24 hr buPROPion hydrochloride 150 mg extended release oral tablet (20 sources)AminoketoneStart: 09-16-2024 End: 49-90-7785wvgh 1 tablet by mouth once daily in the morningBupropion Hcl 150 mg tablet extended release 24 hr Discontinued 0 .ROUTE .COMPLEX September 160:37am January 05, 2025 1:40pm TAKE 1 TABLET BY MOUTH EVERY MORNING Start: 57-68-2471msmo 1 tablet by mouth once daily in the morningBupropion Hcl 150 mg tablet extended release 24 hr Active 0 .ROUTE .COMPLEX September 16, 2024 10:37am TAKE 1 TABLET BY MOUTH EVERY MORNINGStart: 08-25-2024 End: 90-41-4083fpun 1 tablet by mouth once daily in the morningBupropion Hcl 150 mg tablet extended release 24 hr Discontinued 150 MG PO Every morning August 25, 2024 12:00am September 16, 2024 10:38amStart: 66-09-0213wsao 1 tablet by mouth every twenty-four hoursbuPROPion HCl ER (XL) 300 MG 1 tablet in the morning Orally Once a day for 90 day(s) Jul, ActivebuPROPion HCl ER (XL) 150 MG take 1 tablet by mouth every morning for 3 days for 3 DCed Activecefuroxime 500 mg oral tablet (20 sources)Cephalosporin AntibacterialStart: 04-30-2024 End: 42-36-0808ipms 1 tablet by mouth twice dailyCefuroxime Axetil 500 mg tablet Discontinued 500 MG PO Twice daily 09 11April 30, 2024 1:00am August 20, 2024 10:10amStart: 12-13-2021 End: 02-77-2157rbkd 1 tablet by mouth twice dailyCefuroxime Axetil 500 mg tablet Discontinued 500 MG PO Twice daily 6 December 13, 2021 12:00am October 10, 2022 12:16pmStart: 11-79-0672eccq 500 mg by mouth twice dailyCefuroxime Axetil Active 500 MG PO Twice daily 09 29December 13, 2021 12:00amStart: 08-86-5183gcte 500 mg by mouth twice dailyCefuroxime Axetil Active 500 MG PO Twice daily 09 29December 13, 2021 12:00amcephalexin 500 mg oral capsule (13 sources)Cephalosporin AntibacterialStart: 07-10-2024 End: 60-32-2921cghw 1 capsule by mouth every eight hoursCephalexin 500 mg capsule Discontinued 500 MG PO Every 8 hours July 10, 2024 12:00am July 22, 2024 11:18amcyclobenzaprine hydrochloride 10 mg oral tablet (20 sources)Muscle RelaxantStart: 05-15-2024 End: 49-98-2319welo 1-2 tablets by mouth at bedtimecyclobenzaprine (Flexeril) 10 MG tablet Indications: Cervical paraspinal muscle spasm , Lumbar paraspinal muscle spasm TAKE 1 TO 2 TABLETS BY MOUTH AT BEDTIME 60 tablet 3 05/15/2024 07/21/2024 DiscontinuedStart: 67-96-6741Pgidcejhvvcaqtg Active MG PO January 15, 2024 12:00amStart: 01-07-2024 End: 11-37-3106Nkvlpsavzptbilv 10 mg tablet Discontinued 10 MG PO As Directed as needed for muscle spasm 2023 12:00am April 30, 2024 11:27am dapagliflozin 10 mg oral tablet (4 sources)Sodium-Glucose Cotransporter 2 InhibitorStart: 71-26-4844tcxm 1 tablet by mouth every twenty-four hoursFarxiga 10 MG 1 tablet Orally Once a day for 30 day(s) Apr, Not-Takingdoxycycline hyclate 100 mg oral tablet (20 sources)Tetracycline-class DrugStart: 12-15-2024 End: 21-95-3975bwua 1 tablet by mouth twice dailyDoxycycline Hyclate 100 mg tablet Discontinued 100 MG PO Twice daily December 15, 2024 12:00am January 05, 2025 1:40pmStart: 11-16-2024 End: 43-56-9767vlyu 1 tablet by mouth in the morningdoxycycline (Vibra-Tabs) 100 MG tablet Indications: Ulcer of right foot with fat layer exposed (HCC) Take 1 tablet (100 mg) by mouth in the morning and 1 tablet (100 mg) before bedtime. Do all this for 10 days. Take with a full glass of water and do not lie down for at least 30 minutes after. 20 tablet 11/16/2024 11/26/2024 ActiveStart: 02-06-2022 End: 24-28-1735hrbx 1 capsule by mouth once dailydoxycycline (Vibramycin) 100 MG capsule take 1 capsule by mouth once daily for 10 days 02/06/2022 01/07/2024 Discontinuedflash glucose sensor (FreeStyle Brent 14 Day Sensor) (20 sources)Start: 06-12-2023 End: 86-10-0955egxeq glucose sensor (FreeStyle Brent 14 Day Sensor) Discontinued .Route June 12, 2023 12:00am July 22, 2023 6:32amStart: 06-12-2023 End: 78-99-4185ezpox glucose sensor (FreeStyle Brent 14 Day Sensor) Discontinued .Route June 12, 2023 12:00am November 09, 2023 9:09pmStart: 06-12-2023 End: 95-14-0656heblv glucose sensor (FreeStyle Brent 14 Day Sensor) Discontinued .Route June 12, 2023 1:00amJuly 2023 10:09pmStart: 06-12-2023 End: 73-77-9508xnzxu glucose sensor (FreeStyle Brent 14 Day Sensor) Discontinued .Route June 12, 2023 1:00amMarc2023 7:32amStart: 42-84-7157oqygl glucose sensor (FreeStyle Brent 14 Day Sensor) Active .Route June 12, 2023 1:00amStart: 28-77-8610pfwgp glucose sensor (FreeStyle Brent 14 Day Sensor) Active .Route June 12, 2023 12:00amStart: 32-87-4666kvnfm glucose sensor (FreeStyle Brent 14 Day Sensor) Active .ROUTE June 12, 2023 12:00am Handicap placards as directed (13 sources)Start: 10-25-4663Arbuhpmk placards as directed as directed as directed as directed To 5 years after issue date Nov, Active3 ml insulin lispro 100 unt/ml pen injector (20 sources)Insulin AnalogStart: 55-37-8284Aivlocp Lispro Active 0 SUBCUT Before meals and at bedtime December 23, 2023 4:11pm subcutaneously before meals and at bedtime; 1:50 corrective scale (expect up to 20 units/day)Start: 06-12-2023 End: 43-25-8613Dkbjbmy Lispro Discontinued 0 SUBCUT Before meals and at bedtime June 12, 2023 9:05am December 23, 2023 4:14pm subcutaneously before meals and at bedtime; 1:50 corrective scale (expect up to 20units/day)Start: 77-63-6401Dbbnikp Lispro Active 0 SUBCUT Before meals and at bedtime June 12, 2023 9:05am subcutaneously before meals and at bedtime; 1:50 corrective scale (expect up to 20 units/day)Start: 67-88-2638Lekyxqx Lispro Active 0 SUBCUT Before meals and at bedtime June 12, 2023 8:05am subcutaneously before meals and at bedtime; 1:50 corrective scale (expect up to 20 units/day)Start: 10-10-2022 End: 39-79-9768khunfq 1 dose by subcutaneous injection at bedtimeInsulin Lispro Discontinued sliding scale dose SUBCUT Before meals and at bedtime October 10, 2022 12:00am June 12, 2023 9:13amStart: 10-10-2022 End: 68-37-0362epfore 1 dose by subcutaneous injection at bedtimeInsulin Lispro Discontinued sliding scale dose SUBCUT Before meals and at bedtime October 09, 2022 11:00pm June 12, 2023 8:13amStart: 19-65-9341dupljy 1 dose by subcutaneous injection at bedtimeInsulin Lispro Active sliding scale dose SUBCUT Before meals and at bedtime October 09, 2022 11:00pmStart: 02-09-2021 End: 75-50-0821Kcthczw Lispro 100 unit/mL insulin pen Discontinued 0 SUBCUT Before meals and at bedtime June 12, 2023 9:05am December 23, 2023 4:14pm subcutaneously before meals and at bedtime; 1:50 corrective scale (expect up to 20 units/day)HumaLOG KwikPen 100 UNIT/ML 1:50 corrective scale Subcutaneous ac tid Not-TakingInsulin Lispro (Admelog Solostar U-100 Insulin) 100 unit/mL Insulin Pen (20 sources)Start: 02-09-2021 End: 22-02-6285Uzhtklp Lispro (Admelog Solostar U-100 Insulin) 100 unit/mL Insulin Pen Discontinued 1 sliding scale dose SUBCUT Use as Directed February 09, 2021 12:00am October 10, 2022 12:17pmStart: 02-09-2021 End: 75-99-1484Qnzeiov Lispro (Admelog Solostar U-100 Insulin) 100 unit/mL Insulin Pen Discontinued 1 sliding scale dose SUBCUT Use as Directed February 08, 2021 11:00pm October 10, 2022 11:17amInsulin Lispro 100 unit/mL Insulin Pen (14 sources)Start: 10-10-2022 End: 54-01-3091nwxgjk 1 dose by subcutaneous injection at bedtimeInsulin Lispro 100 unit/mL Insulin Pen Discontinued sliding scale dose SUBCUT Before meals and at bedtime October 10, 2022 12:00am June 12, 2023 9:13amStart: 10-10-2022 End: 36-06-0363fvyrva 1 dose by subcutaneous injection at bedtimeInsulin Lispro 100 unit/mL Insulin Pen Discontinued sliding scale dose SUBCUT Before meals and at bedtime October 09, 2022 11:00pm June 12, 2023 8:13amL. acidophilus/Bifid. animalis (Daily Probiotic) (6 sources)Start: 08-25-2024 End: 00-93-5535sfti 1 tablet by mouth once dailyL. acidophilus/Bifid. animalis (Daily Probiotic) Discontinued 1 TAB PO Daily August 25, 2024 12:00am December 15, 2024 1:58pmStart: 08-25-2024L. acidophilus/Bifid. animalis (Daily Probiotic) Active PO August 25, 2024 12:00amlidocaine 0.05 mg/mg topical ointment (20 sources)Antiarrhythmic, Amide Local AnestheticStart: 04-28-2024 End: 50-00-3245Qioykuslo 5 % ointment Discontinued 1 APPLIC TOPICAL Daily as needed for pain April 28, 2024 1:00am August 20, 2024 10:11amStart: 01-30-2024 End: 05-11-3111enxcxglcp (Xylocaine) 5 % ointment Indications: Ulcer of right foot, limited to breakdown of skin (CMS/HCC) Apply topically Daily Use as needed over the wound sites with dressing changes. 50 g 2 01/30/2024 07/21/2024 DiscontinuedStart: 01-03-2024 End: 55-25-0656aevxdyvwx (Xylocaine) 1 % injection 6 mgStart: 01-03-2024 End: mg (0.6 mL), Injection, Once, On Sat01/03/24 at 1745, For 1 dose, Added to dexamethasone or ketorolac for therapeutic injection.lisinopril 5 mg oral tablet (20 sources)Angiotensin Converting Enzyme InhibitorStart: 09-09-2023 End: 13-60-8006mswe 1 tablet by mouth once dailyLisinopril 5 mg tablet Discontinued 0 .ROUTE .COMPLEX 90 September 09, 2023 9:36am November 05, 2023 12:26pm take 1 tablet by mouth once dailyStart: 06-12-2023 End: 34-88-2166jpzf 2.5 mg by mouth once dailyLisinopril 10 mg tablet Discontinued 2.5 MG PO Daily June 12, 2023 9:09am June 12, 2023 4:42pmStart: 06-12-2023 End: 91-74-0261wtrd 2.5 mg by mouth once dailyLisinopril Discontinued 2.5 MG PO Daily June 12, 2023 9:09am June 12, 2023 4:42pmStart: 06-12-2023 End: 81-89-7512jldx 1 tablet by mouth once dailyLisinopril 2.5 mg tablet Discontinued 2.5 MG PO Daily June 12, 2023 1:00am June 19, 2023 6:17pmStart: 12-04-2022 End: 82-76-0205milc 1 tablet by mouth once dailyLisinopril 5 mg tablet Discontinued 5 MG PO Daily September 09, 2023 12:00am September 09, 2023 9:36amStart: 02-09-2021 End: 58-21-8313nttu 5 mg by mouth once dailyLisinopril 10 mg Tablet Discontinued 5 MG PO Daily February 09, 2021 12:00am June 12, 2023 9:13amStart: 02-09-2021 End: 22-48-1388wysw 5 mg by mouth once dailyLisinopril Discontinued 5 MG PO Daily February 09, 2021 12:00am June 12, 2023 9:13amStart: 58-13-8047hudl 10 mg by mouth once dailyLisinopril Active 10 MG PO Daily February 09, 2021 12:00amtake 1 tablet by mouth every twenty-four hoursLisinopril 40 MG 1 tablet Orally Once a day Activeloratadine 10 mg oral tablet (20 sources)Start: 02-09-2021 End: 59-26-9692heeq 1 tablet by mouth once dailyLoratadine 10 mg Tablet Discontinued 10 MG PO Daily February 09, 2021 12:00am October 10, 2022 12:16pm Loratadine PRN ActiveLoratadine prn ActiveLoratadine Activemetoclopramide 10 mg oral tablet (20 sources)Dopamine-2 Receptor AntagonistStart: 06-12-2023 End: 99-66-2737zxeu 1 tablet by mouth once daily at bedtimeMetoclopramide Hcl 10 mg tablet Discontinued 10 MG PO Daily at bedtime June 12, 2023 1:00am [facility] 2023 6:17pmStart: 02-09-2021 End: 29-03-5259niof 1 tablet by mouth once dailyMetoclopramide Hcl 10 mg Tablet Discontinued 10 MG PO Daily February 09, 2021 12:00am October 10, 2022 12:15pm take 1 tablet by mouth at bedtimeMetoclopramide HCl 10 MG 1 tablet Orally at bedtime Dqpxjf16 hr metoprolol succinate 50 mg extended release oral tablet (20 sources)beta-Adrenergic BlockerStart: 10-30-2023 End: 10-93-2157mnoe 1 tablet by mouth three times dailyMetoprolol Succinate 50 mg Tablet Extended Release 24 Hr Discontinued 50 MG PO Three times daily November 04, 2023 12:00am April 14, 2024 10:40amStart: 09-14-2023 End: 88-49-2136pbqe 1 tablet by mouth every twenty-four hours in the morning metoprolol succinate XL (Toprol-XL) 50 MG 24 hr tablet Take 50 mg by mouth in the morning and 50 mgin the evening. 09/14/2023 04/07/2024 DiscontinuedStart: 09-14-2023 End: 77-99-4406eazo 1 tablet by mouth once dailyMetoprolol Succinate 50 mg Tablet Extended Release 24 Hr Discontinued 50 MG PO Daily September 14, 2023 12:00am November 04, 2023 1:04pmMiscellaneous Medical Supply misc (20 sources)Start: 11-26-2023 End: 00-85-6283Oebdbriqasope [facility] misc Discontinued 0 .Route 1 November 26, 2023 2:24pm April 28, 2024 12:40pm Hospital BedStart: 11-26-2023 End: 54-66-5349Fulvgwhmupfms Medical Supply misc Discontinued 0 .Route 1 November 26, 2023 1:24pm April 28, 2024 11:40am [facility] BedStart: 11-26-2023 End: 79-70-7653Lshvciuysmfgj Medical Supply misc Discontinued 0 .Route 1 November 26, 2023 2:22pm November 26, 2023 2:25pm As directedStart: 11-26-2023 End: 93-67-3592Hmkdmjznnjslc Medical Supply misc Discontinued 0 .Route 1 November 26, 2023 1:22pm November 26, 2023 1:25pm As directedStart: 2023 End: 47-31-0800Yotjlyatbqker [facility] Supply misc Discontinued 0 .Route 1 2023 2:20pm November 26, 2023 2:23pm As directedStart: 2023 End: 63-66-1994Eykqrhdjegvpj Medical Supply misc Discontinued 0 .Route 1 2023 1:20pm November 26, 2023 1:23pm As directedStart: 09-30-2023 End: 62-57-0657Glhwmbspboktr Medical Supply misc Discontinued 0 .Route 1 September 30, 2023 8:33am 2023 2:21pm As directedStart: 09-30-2023 End: 26-55-2569Dcxmbhqaostzg Medical Supply misc Discontinued 0 .Route 1 September 30, 2023 7:33am 2023 1:21pm As directedStart: 09-17-2023 End: 57-81-3318Ypdrfoncsozes Medical Supply misc Discontinued 0 .Route 1 September 17, 2023 12:00am September 30, 2023 8:33am As directedStart: 09-17-2023 End: 70-76-8841Fuwelbhzbkvwa Medical Supply misc Discontinued 0 .Route 1 September 16, 2023 11:00pm September 30, 2023 7:33am As directedMultivitamin Tablet (20 sources)Start: 02-09-2021 End: 55-97-7688hblp 1 tablet by mouth twice dailyMultivitamin Tablet Discontinued 1 TAB PO Twice daily February 09, 2021 12:00am June 12, 2023 9:13amStart: 02-09-2021 End: 32-78-9404qmie 1 tablet by mouth twice dailyMultivitamin Tablet Discontinued 1 TAB PO Twice daily February 08, 2021 11:00pm June 12, 2023 8:13am24 hr nicotine 0.875 mg/hr transdermal system (17 sources)Cholinergic Nicotinic AgonistStart: 05-07-2024 End: 42-67-1001wbejq 1 dose transdermal route every twenty-four hoursNicotine 21 mg/24 hr patch 24 hour Discontinued 1 PATCH TRANSDERML Daily May 07, 2024 1:00am August 20, 2024 10:11ampen needle, diabetic (Sure-Fine Pen Dorothy) (20 sources)Start: 06-12-2023 End: 45-52-0801ehj needle, diabetic (Sure-Fine Pen Dorothy) Discontinued .Route June 12, 2023 1:00am January 05, 2025 1:32pmStart: 76-27-0237qgs needle, diabetic (Sure-Fine Pen Dorothy) Active .Route June 12, 2023 1:00amStart: 52-78-2336vjj needle, diabetic (Sure-Fine Pen Dorothy) Active .Route June 12, 2023 12:00amStart: 05-13-1931mvu needle, diabetic (Sure- Fine Pen Dorothy) Active .ROUTE June 12, 2023 12:00ampioglitazone 15 mg oral tablet (20 sources)Peroxisome Proliferator Receptor alpha Agonist, Peroxisome Proliferator Receptor gamma Agonist, ThiazolidinedioneStart: 02-09-2021 End: 12-75-9703ptvu 1 tablet by mouth once dailyPioglitazone 15 mg Tablet Discontinued 15 MG PO Daily February 09, 2021 12:00am April 28, 2024 1:57pm0.25 mg, 0.5 mg dose 1.5 ml semaglutide 1.34 mg/ml pen injector (20 sources)Start: 02-09-2021 End: 59-35-7533Zwdzdgyhuvf (Ozempic) 0.25 mg or 0.5 mg(2 mg/1.5 mL) Pen Injector Discontinued 1 MG SUBCUT every week February 09, 2021 12:00am April 28, 2024 12:39pm Sundaystart: 71-20-4825Ssldowstqul (Ozempic) 0.25 mg or 0.5 mg(2 mg/1.5 mL) Pen Injector Active 0.5 MG SUBCUT every week February 09, 2021 12:00am SaturdayOzempic (0.25 or 0.5 MG/DOSE) 2 MG/1.5ML inject 0.5 milligrams subcutaneously every week for 84 ActiveSemaglutide (20 sources)Start: 04-28-2024 End: 50-77-2732zlukow 1 mg by subcutaneous injection every weekSemaglutide (Ozempic) 1 mg/dose (4 mg/3 mL) pen injector Discontinued 1 MG SUBCUT every week April 28, 2024 1:00am April 28, 2024 1:57pmStart: 04-28-2024 End: 92-65-0709gkecba 1 mg by subcutaneous injection every weekSemaglutide (Ozempic) 1 mg/dose (4 mg/3 mL) pen injector Discontinued 1 MG SUBCUT every week April 28, 2024 12:00am April 28, 2024 12:57pmtemazepam 30 mg oral capsule (20 sources)BenzodiazepineStart: 10-10-2022 End: 73-41-9556rluq 1 capsule by mouth once dailyTemazepam 30 mg capsule Discontinued 30 MG PO Daily September 17, 2023 1:56pm November 08, 2023 4:43pm Start: 61-03-6772dctf 1 capsule by mouth every twenty-four hoursTemazepam 30 MG 1 capsule at bedtime as needed Orally Once a day for 30 days Jul, Active Start: 65-53-9358xmsl 1 capsule by mouth every twenty-four hoursTemazepam 30 MG 1 capsule at bedtime as needed Orally Once a day for 30 days Jun, Active Start: 15-94-8909ywtl 1 capsule by mouth every twenty-four hoursTemazepam 30 MG 1 capsule at bedtime as needed Orally Once a day for 30 days May, Active Start: 30-90-2509nkjb 1 capsule by mouth every twenty-four hoursTemazepam 15 MG 1 capsule at bedtime as needed Orally Once a day for 30 days Jun, Active Start: 59-31-4211ejpk 1 capsule by mouth every twenty-four hoursTemazepam 22.5 MG 1 capsule at bedtime as needed Orally Once a day for 30 days Apr, ActiveStart: 02-09-2021 End: 14-96-1128ppza 1 capsule by mouth once daily at bedtimeTemazepam 30 mg Capsule Discontinued 30 MG PO Daily at bedtime February 09, 2021 12:00am December 17, 2021 6:00amtake 1 capsule by mouth every twenty-four hoursTemazepam 15 MG 1 capsule at bedtime as needed Orally Once a day ActiveVitamin B12 1000 MCG (4 sources)Start: 06-70-3917htqu 1 tablet by mouth once dailyVitamin B12 1000 MCG 1 tablet Orally Once a day for 90 days Jun, Not-TakingStart: 83-11-2169jori 1 tablet by mouth once dailyVitamin B12 1000 MCG 1 tablet Orally Once a day for 90 days Jun, Active Problems Active Problems Problem ClassificationProblemDateDocumented DateEpisodic/ChronicAbdominal pain (20 sources)Abdominal pain; Translations: [Unspecified abdominal pain]12-17-2021 EpisodicAcquired foot deformities (2 sources)Deformity of toe; Translations: [Acquired deformities of toe(s), unspecified, right foot]83-63-0959DbnbstghXzpvjbpwpxmwnc/social admission (20 sources)Dietary counseling and surveillance; Translations: [Tobacco abuse counseling]Onset: 03-27-2021 Resolved: 83-00-1384UuvvdcbaAjregien reactions (10 sources)Allergy to honey bee venom; Translations: [Bee allergy status] 07-40-3938HdmdbexbLsspfyr tract disease (20 sources)Biliary calculus; Translations: [Calculus of gallbladder without cholecystitis without obstruction]71-32-5594VbdfygirLtvhabo dysrhythmias (20 sources)Atrial flutter; Translations: [Unspecified atrial flutter]Onset: 329244-09-1643DbbjwtzKcgljld dysrhythmias (20 sources)Tachycardia; Translations: [Tachycardia, unspecified]09-12-2023 EpisodicChronic kidney disease (20 sources)Chronic kidney disease stage 2; Translations: [Chronic kidney disease, stage 2 (mild)]44-78-9889PhvjhmoRholnck ulcer of skin (20 sources)Non-pressure chronic ulcer of other part of right foot limited to breakdown of skin; Translations: [Ulcer of other part of foot]Onset: 11-16-2024 80-25-0745WwarmaeZfkg; stupor; and brain damage (9 sources)Daytime somnolence; Translations: [Somnolence]42-13-2020Jwfiuwuj Complications of surgical procedures or medical care (11 sources)Complication of ventilation sqisady95-80-8018NexelgfkQpmrxlwdue heart failure; nonhypertensive (11 sources)Congestive heart failure; Translations: [Heart failure, unspecified] 20-19-9711LucgjkaDmnjytyb atherosclerosis and other heart disease (1 source)Coronary atherosclerosis and other heart diseaseOnset: 05-16-2017 Diabetes mellitus with complications (20 sources)Polyneuropathy due to type 2 diabetes mellitus; Translations: [Type 2 diabetes mellitus with diabetic polyneuropathy]Onset: 03-27-2021 Resolved: 89-56-8799WhjpmoqCqljhxww mellitus with complications (1 source)Diabetes mellitus with complicationsOnset: 36-86-3759Tjydwjgt mellitus without complication (20 sources)Type 2 diabetes mellitus; Translations: [Type 2 diabetes mellitus without complications]Onset: 691146-28-4036QjlpgijEnucwrpun congenital anomalies (20 sources)Enlargement of tongue; Translations: [Macroglossia]Onset: 10-29-2023 10-98-2240GhjdeggTrpghfba of white blood cells (20 sources)Granulocytosis; Translations: [Other elevated white blood cell count]Onset: 587550-94-3390XvkxfepZqydzocmj of lipid metabolism (20 sources)Hyperlipidemia; Translations: [Hyperlipidemia, unspecified]Onset: 03-27-2021 Resolved: 24-45-8167WrgnoofVskzckgeam disorders (18 sources)Stricture of esophagus; Translations: [Esophageal obstruction] ChronicEsophageal disorders (20 sources)Achalasia of esophagus; Translations: [Achalasia of cardia] 81-93-2524UyavtalrLqskucceaw disorders (1 source)Esophageal disordersOnset: 89-72-3590Dzwueglcm hypertension (20 sources)Hypertensive disorder; Translations: [Essential (primary) hypertension]Onset: 03-27-2021 Resolved: 82-21-4658ZjfecekBhsbeaejj hypertension (1 source)Essential hypertensionOnset: 94-29-1490Rpyjrgr and fatigue (20 sources)Fatigue; Translations: [Chronic fatigue, unspecified]Chronic Miscellaneous mental health disorders (20 sources)Primary insomnia; Translations: [Primary insomnia]ChronicMood disorders (20 sources)Major depressive disorder; Translations: [Major depressive disorder, single episode, unspecified]58-47-5607SphrbziKcrvqskesej chest pain (20 sources)Chest pain; Translations: [Chest pain, unspecified]09-12-2023 EpisodicNutritional deficiencies (20 sources)Vitamin D deficiency; Translations: [Vitamin D deficiency, unspecified]ChronicOpen wounds of extremities (20 sources)Injury of foot; Translations: [Unspecified open wound, unspecified foot, initial encounter]30-03-2612QfgmubmqEpfdj acquired deformities (2 sources)Unspecified acquired deformity of right lower leg; Translations: [Unspecified deformity of ankle and foot, acquired]80-11-3388OhrludktAeefd aftercare (20 sources)Long-term current use of insulin; Translations: [glass beveler (current) use of insulin]58-97-2044PgpodcdbEbiaq aftercare (12 sources)glass beveler (current) use of insulin; Translations: [Long-term (current) use of insulin]Onset: 03-27-2021 Resolved: 84-93-3663OwiwccrdPpwaw aftercare (20 sources)Post-discharge follow-up; Translations: [Encounter for follow-up examination after completed treatment for conditions other than malignant neoplasm]79-15-3895JnmzazxiMfsgk aftercare (17 sources)Encounter for follow-up examination after completed treatment for conditions other than malignant neoplasm; Translations: [Other follow-up examination]89-17-8471FvmjcehnNjaap circulatory disease (16 sources)Low blood pressure; Translations: [Hypotension, unspecified] 83-87-8277KslesgbpJcynt circulatory disease (5 sources)Hypotension, unspecified; Translations: [Hypotension, unspecified] 78-78-6045BdtixxscZcydp connective tissue disease (4 sources)Pain in left lower limb; Translations: [Pain in left leg]10-06-2024 EpisodicOther connective tissue disease (4 sources)Pain in right lower limb; Translations: [Pain in right leg]10-06-2024 EpisodicOther connective tissue disease (1 source)Weakness of hand; Translations: [Other symptoms and signs involving the musculoskeletal system]45-06-7289KfdarwrfInbwz female genital disorders (4 sources)Vaginal lesion; Translations: [Other specified noninflammatory disorders of vagina]56-57-5845ZflkqthvCpahn gastrointestinal disorders (20 sources)Dysphagia; Translations: [Dysphagia, unspecified]52-49-0236Gzsacgtq Other gastrointestinal disorders (15 sources)Stricture of esophagus; Translations: [Personal history of other diseases of the digestive system]EpisodicOther gastrointestinal disorders (16 sources)Incontinence of feces; Translations: [Full incontinence of feces] 20-91-1880CrfbifczMpcma gastrointestinal disorders (5 sources)Full incontinence of feces; Translations: [Full incontinence of feces]90-94-9886EuvlxnfjGlphb hematologic conditions (20 sources)Secondary polycythemia; 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] 16-97-0798MxxfeyjnSztmu hematologic conditions (4 sources)Lesion of spleen; Translations: [Other diseases of spleen]01-12-2025 EpisodicOther injuries and conditions due to external causes (9 sources)Unspecified injury of left foot, initial encounter; Translations: [Injury of foot, left]EpisodicOther nervous system disorders (20 sources)Peripheral nerve disease ; Translations: [Polyneuropathy, unspecified]83-01-7564DlmkubtLxynk nervous system disorders (20 sources)Polyneuropathy, unspecified; Translations: [Unspecified hereditary and idiopathic peripheral neuropathy]Onset: 03-27-2021 Resolved: 94-63-5821ObwcfvzTnzgs nervous system disorders (20 sources)Walking disability; Translations: [Difficulty in walking, not elsewhere classified]10-90-3154TalimkzCrurc nervous system disorders (12 sources)Difficulty in walking, not elsewhere classified; Translations: [Difficulty in walking]43-22-8813UcmcwqkSmeaw nervous system disorders (20 sources)Bilateral carpal tunnel syndrome; Translations: [Carpal tunnel syndrome, bilateral upper limbs]Onset: 541960-51-3613YdohnpxBiuhs nervous system disorders (20 sources)Polyneuropathy; Translations: [Polyneuropathy, unspecified]Onset: 865367-45-1284GnrvmocGaggu nervous system disorders (20 sources)Ulnar nerve entrapment at wrist; Translations: [Lesion of ulnar nerve, unspecified upper limb]Onset: 520429-59-3244JabphbvLljak nervous system disorders (5 sources)Numbness; Translations: [Anesthesia of skin]48-73-7671JofnogziErrmx nervous system disorders (1 source)Paresthesia; Translations: [Paresthesia of skin]08-01-1419Pokzrdso Other nutritional; endocrine; and metabolic disorders (20 sources)Obese class I; Translations: [Body mass index (BMI) 33.0-33.9, adult]ChronicOther nutritional; endocrine; and metabolic disorders (20 sources)Body mass index 30+ - obesity; Translations: [Body mass index (BMI) 32.0-32.9, adult]Onset: 769543-86-9593IglbeldQyznq nutritional; endocrine; and metabolic disorders (3 sources)Body mass index (BMI) 30.0-30.9, adultOnset: 03-27-2021 Resolved: 97-75-1924ZaikeuwZjcdv nutritional; endocrine; and metabolic disorders (20 sources)Obese class II; Translations: [Body mass index (BMI) 35.0-35.9, adult]ChronicOther nutritional; endocrine; and metabolic disorders (1 source)Body mass index (BMI) 35.0-35.9, adultChronicOther nutritional; endocrine; and metabolic disorders (20 sources)Hypomagnesemia; Translations: [Hypomagnesemia]14-47-4184CghqluzLicrj nutritional; endocrine; and metabolic disorders (20 sources)Hypomagnesemia; Translations: [Disorders of magnesium metabolism] Onset: 944107-43-1153WytyruyZmgsl nutritional; endocrine; and metabolic disorders (16 sources)Body mass index (BMI) 32.0-32.9, adult; Translations: [Body Mass Index 32.0-32.9, adult]Onset: 095097-90-2826PdzdufeMmnzg nutritional; endocrine; and metabolic disorders (2 sources)Obesity, unspecified; Translations: [Obesity, unspecified]Onset: 45-32-1739KdnldimQwbrn nutritional; endocrine; and metabolic disorders (4 sources)Obesity; Translations: [Class 1 obesity with body mass index (BMI) of 30.0 to 30.9 in adult]87-72-3236KnryccxAwnvn nutritional; endocrine; and metabolic disorders (20 sources)Body mass index (BMI) 28.0-28.9, adult; Translations: [Body Mass Index 28.0-28.9, adult]Onset: 01-09-2022 Resolved: 82-64-8693CfnjtxjsFzhlv nutritional; endocrine; and metabolic disorders (1 source)Body mass index (BMI) 29.0-29.9, adultEpisodicOther nutritional; endocrine; and metabolic disorders (20 sources)Overweight in adulthood with body mass index of 25 or more but less than 30; Translations: [Body mass index (BMI) 28.0-28.9, adult]Onset: 10-07-2023 Resolved: 386520-46-7948JpftlxzzPfhfu screening for suspected conditions (not mental disorders or infectious disease) (1 source)Ultrasound scan abnormal; Translations: [Abnormal findings on diagnostic imaging of other specifiedbody structures]48-28-1121SvfzuoeGlvfn screening for suspected conditions (not mental disorders or infectious disease) (20 sources)Thyroid function tests abnormal; Translations: [Other specified abnormal findings of blood chemistry]Onset: 016430-66-8138CrvkvlrqXfxdy skin disorders (10 sources)Lesion of skin of face; Translations: [Disorder of the skin and subcutaneous tissue, unspecified]61-28-3638RbdiqyjmKvkgp skin disorders (3 sources)Disorder of the skin and subcutaneous tissue, unspecified; Translations: [Unspecified disorder of skin and subcutaneous tissue]08-25-2024 EpisodicPeri-; endo-; and myocarditis; cardiomyopathy (except that caused by tuberculosis or sexually transmitted disease) (20 sources)Cardiomyopathy; Translations: [Cardiomyopathy, unspecified]Onset: 048950-14-9248BmaeowkVeyoqyodig and visceral atherosclerosis (20 sources)Peripheral vascular disease, unspecified; Translations: [Peripheral vascular disease]Onset: 01-25-2017 Resolved: 51-41-3724CgstfbxHurxfzxh codes; unclassified (20 sources)Sleep apnea; Translations: [Sleep apnea, unspecified]ChronicResidual codes; unclassified (1 source)Sleep apnea, unspecifiedOnset: 07-03-2021 Resolved: 23-16-8796LckuttxVgkeekev codes; unclassified (2 sources)Obstructive sleep apnea (adult) (pediatric); Translations: [Obstructive sleep apnea (adult)(pediatric)]Onset: 558238-26-3976Xagompg Residual codes; unclassified (20 sources)Insomnia; Translations: [Insomnia, unspecified]EpisodicResidual codes; unclassified (1 source)Asymptomatic menopausal stateEpisodicResidual codes; unclassified (16 sources)Sleep disorder; Translations: [Sleep disorder, unspecified] 41-38-7841BbdvocqdCrkjwcdp codes; unclassified (5 sources)Sleep disorder, unspecified; Translations: [Sleep disturbance, unspecified]18-48-9523OgvgxhuaEmrbqdej codes; unclassified (2 sources)At increased risk of emergency hospital admission; Translations: [Other specified personal risk factors, not elsewhere classified]11-23-2024 EpisodicResidual codes; unclassified (8 sources)Postmenopausal state; Translations: [Asymptomatic menopausal state] 57-54-9761RcuupqxpLyop and subcutaneous tissue infections (6 sources)Cellulitis of right foot; Translations: [Cellulitis of right lower limb]47-05-1954TcohboevNsjocvbpfsa; intervertebral disc disorders; other back problems (15 sources)Lumbar spondylosis; Translations: [Spondylosis without myelopathy or radiculopathy, lumbar region]88-06-2724GfvdryvIuxcztjua-related disorders (20 sources)Smoker; Translations: [Nicotine dependence, unspecified, uncomplicated]Onset: 08-87-7549BtgvdpcSepvsqcjajc injury; contusion (8 sources)Blister of foot; Translations: [Blister (nonthermal), right foot, subsequent encounter]94-29-1058ZmmfonquNsedqyu disorders (20 sources)Hypothyroidism; Translations: [Hypothyroidism, unspecified]Onset: 579123-75-9873KwiynjiWsilbafdb cerebral ischemia (20 sources)Transient cerebral ischemia; Translations: [Transient cerebral ischemic attack, unspecified]Onset: 464740-21-5278OcbfobhTpzhfmkwpqkl (3 sources)Dermatochalasis of left upper eyelid / H02.834(ICD-10)Onset: 48-64-4077Gdrkiuvzihie (1 source)Dermatochalasis of right upper eyelid / H02.831(ICD-10)Onset: 40-35-6992Bbslvcplotpc (1 source)Unspecified ptosis of bilateral eyelids / H02.403(ICD-10)Onset: 27-59-3131Pupqucspuywy (1 source)Nicotine dependence, unspecified, uncomplicated / F17.200(ICD-10) Onset: 74-81-1702Couevhzwhwok (1 source)detention (current) use of aspirin / Z79.82(ICD-10)Onset: 05-16-2017 Unclassified (1 source)glass beveler (current) use of oral hypoglycemic drugs / Z79.84(ICD-10) Onset: 68-62-4379Axpgmrpuwszw (2 sources)Bilateral leg isoxnbnn95-78-8131Ltvlfec tract infections (20 sources)Emphysematous cystitis; Translations: [Other cystitis without hematuria]46-80-7104Eegefgoc Past or Other Problems Problem ClassificationProblemDateDocumented DateEpisodic/ChronicConditions associated with dizziness or vertigo (20 sources)Dizziness; Translations: [Dizziness and giddiness]Onset: 04-27-2024 65-98-3698ZvepjntuY Codes: Adverse effects of medical drugs (20 sources)Alpha-tocopheryl adverse reaction; Translations: [Adverse effect of vitamins, initial encounter]Onset: 897710-45-1799XyvxzivcChefhccmnxxrp symptoms and ill-defined conditions (2 sources)Proteinuria, unspecifiedOnset: 03-27-2021 Resolved: 47-68-2288FiiskqwjDxloiwhwasepy and screening for infectious disease (20 sources)Anti-nuclear factor positive; Translations: [Other specified abnormal immunological findings in serum]Onset: 588234-58-8579Vbzkepwi Malaise and fatigue (20 sources)Asthenia; Translations: [Weakness]Onset: EpisodicNutritional deficiencies (20 sources)Deficiency of other specified B group vitamins; Translations: [Cobalamin deficiency]Onset: 03-27-2021 Resolved: 87-83-0854EjphhphfRgmty aftercare (7 sources)Taking high risk medication; Translations: [Other scrip clerk (current) drug therapy]Onset: 11-13-2023 Resolved: 506663-43-1182SnbdippmFhvft connective tissue disease (1 source)Pain in right legOnset: 04-03-2021 Resolved: 37-12-0246TmqklimkJirqz connective tissue disease (1 source)Pain in left legOnset: 04-03-2021 Resolved: 43-39-8346NewndogzTpkvk connective tissue disease (20 sources)Spasm of cervical paraspinous muscle; Translations: [Other muscle spasm]Onset: 438161-19-5085GwdiwrfvPpqtx connective tissue disease (20 sources)Neurogenic pain; Translations: [Neuralgia and neuritis, unspecified] Onset: 789099-72-4417YexstgpnJbrgl connective tissue disease (20 sources)Muscle atrophy; Translations: [Muscle wasting and atrophy, not elsewhere classified, multiple sites]Onset: 340303-16-4526OwtqqmzfRplna connective tissue disease (20 sources)Pain in bilateral legs; Translations: [Pain in right leg]Onset: 546846-84-3735WhqlzzbwHodfy connective tissue disease (20 sources)Other symptoms and signs involving the musculoskeletal system; Translations: [Other musculoskeletalsymptoms referable to limbs]Onset: 202475-39-8725PubrfaurAubao gastrointestinal disorders (5 sources)Dysphagia, unspecified; Translations: [Dysphagia, unspecified]Onset: 26-48-0836IofiydbwWiupi hematologic conditions (15 sources)Secondary polycythemia; 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, secondary] Onset: 419421-62-5641WzptjvwzLhqtz nervous system disorders (20 sources)Impaired cognition; Translations: [Other symptoms and signs involving cognitive functions and awareness]Onset: 868345-35-8016Qaflqwpz Other skin disorders (1 source)Corns and callositiesOnset: 07-10-2021 Resolved: 38-12-6971IkvfcrigEccujhjc codes; unclassified (20 sources)Obstructive sleep apnea syndrome; Translations: [Obstructive sleep apnea (adult) (pediatric)]Onset: 10-29-2023 Resolved: 494895-79-6262LidhlvpGnmqmhex codes; unclassified (1 source)Insomnia, unspecifiedOnset: 05-08-2021 Resolved: 24-64-1755XdbcsrfcXtlhfjggqxm; intervertebral disc disorders; other back problems (20 sources)Spasm of muscle of lower back; Translations: [Muscle spasm of back] Onset: 193094-35-1540GcqaugenYwloziiwzenz (1 source)Dermatochalasis of left upper eyelid; Translations: [Dermatochalasis of left upper eyelid]Onset: 46-72-9396Thozdvebitgj (6 sources)Onset: 10-07-2023 Resolved: Results Test NameValueInterpretationReference RangeFacilityCNPNon 60-19-6947TYQD Telephone (NCCAP) TAYE GAY ([id number]) 1955 F Date Time Provider Department 02/18/25 ZACK CORDOBA [facility] During your visit today, we recorded the following information about you: Sarah Waldrop 02/18/2025 10:34 AM Signed ----- Message from Shantel Sanabria sent at 02/18/2025 10:06 AM EDT ----- Can someone please call Dr. Linwood Iriwn office to get this colposcopy with biopsies scheduled? Thanks! Shantel ----- Message ----- From: Farida Sinclair APRN.LITHOGRAPHIC PLATE MAKER APPRENTICE Sent: 02/17/2025 12:43 PM EDT To: Shantel Gutierrez [facility] Thanks, so the plot thickens. The pap requires a colposcopy and biopsies. Please ask Dr. Irwin to get that done MYLES so we can have results by the consult. Dr. Best can give opinions on management of all. I have a feeling the patient will need a LEEP. We may still see the patient. Thanks! Farida ----- Message ----- From: Shantel Winkler Sent: 02/12/2025 9:14 AM EDT To: Zack Cordoba MD; Farida Sinclair, # I scanned the last couple pap results. ----- Message ----- From: Farida Sinclair APRN.LITHOGRAPHIC PLATE MAKER APPRENTICE Sent: 02/11/2025 3:41 PM EDT To: Zack Cordoba MD; Shantel Gutierrez # Hi all, path review back, patient just has benign warts. However I don't see a pap result from that visit, am I missing it? 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 She might need something with her cervix. Can we please get her pap? If everything is normal she doesn't need us unless Dr. Irwin needs surgical help. Thanks. Sarah Mcleod 02/18/2025 10:55 AM Signed I called Dr Irwin office [phone] and spoke with Yeny. Summer states she will send Dr Irwin a message re: our call per Farida CHIEF LIBRARIAN [facility] DEPARTMENT patient needs Colposcopy with biopsy and would like this to be done MYLES to have results by patients consult appointment at our office with Dr Cordoba on 03/10. Per Summer she will call our office back after Dr Irwin reviews, to let our office know how Dr Irwin will proceed with this patient Summer states if Dr Irwin proceeds with procedure, their office will call patient to schedule and call our office with date of procedure. I gave Summer our [place] office phone number to call back with any updates and also provided her with Dr Cordoba [place] [phone] Irwin to call if she has any questions for Farida or Dr Cordoba regarding this patient. Sarah Coulter Pss Allergies As of Date: 02/18/2025 Noted Allergy Reaction SULFA (SULFONAMIDE ANTIBIOTICS) 2018 11 - Vomiting Date Reviewed: 12/18/2019 Reviewed by: Michelle Fritz (CATARINA Hooper - Fully Assessed Prescriptions as of 02/18/2025 - polyethylene glycol 3350 (MIRALAX) 17 gram/dose powder Take 17 g by mouth once daily. - docusate sodium (COLACE) 100 mg capsule Take 1 capsule by mouth twice daily. - ibuprofen (MOTRIN) 600 mg tablet Take 1 tablet by mouth every 6 hours as needed for Pain. - acetaminophen (TYLENOL) 325 mg tablet Take 2 tablets by mouth every 4 hours as needed for Pain. - insulin lispro sliding scale 1 (HUMALOG) Inject 1-5 Units subcutaneously w MEALS. - cyanocobalamin (VITAMIN B-12) 1,000 mcg tab 1,000 mcg once daily. - folic acid 1 mg tablet Take 1 mg by mouth once daily. - lisinopril (ZESTRIL, PRINIVIL) 10 mg tablet Take 10 mg by mouth once daily. - metFORMIN (GLUCOPHAGE) 500 mg tablet Take 500 mg by mouth twice daily with meals. - metoclopramide HCl (REGLAN) 10 mg tablet Take 10 mg by mouth four times daily. - nortriptyline (PAMELOR) 50 mg capsule Take 50 mg by mouth daily at bedtime. - omeprazole (PRILOSEC) 20 mg capsule Take 20 mg by mouth once daily. - pioglitazone (ACTOS) 15 mg tablet Take 15 mg by mouth once daily. - simvastatin (ZOCOR) 20 mg tablet Take 20 mg by mouth daily at bedtime. - temazepam (RESTORIL) 30 mg cap Take 30 mg by mouth at bedtime as needed. - terconazole (TERAZOL 7) 0.4 % vaginal cream insert 1 applicatorful vaginally once daily for 7 days Problem List As Of Date 02/18/2025 Noted Resolved Hypertension [I10] Diabetes (HCC) [E11.9] Hypercholesteremia [E78.00] Smoker [F17.200] Encounter Status:Closed by SARAH WALDROP on [facility]/18/25[facility] REVIEWon 41-64-5230CX DISCLAIMERNoMercy Health St[facility] on above:Order Comment: Specimen Type: FORMALIN-FIXED PARAFFIN-EMBEDDED TISSUE SPECIMEN Ordering Facility: Outside Review Address: , ,Result Comment: Laboratory Developed Test (LDT) Disclaimer: Performance characteristics of immunohistochemical, immunofluorescent, and chromogenic in-situ hybridization tests have been determined by the performing laboratory within the [facility] Department of Pathology and Laboratory Medicine ([facility], [facility], [facility], [facility], [facility], [facility], or [facility]) in a manner consistent with CLIA requirements. One or more of these tests may not have been cleared or approved by the FDA. The [facility] Department of Pathology and Laboratory Medicineis regulated under CLIA as qualified to perform high-complexity testing. These tests are used for clinical purposes. These should not be regarded as investigational or for research. Positive and negative controls stain appropriately.Performed By: #### [id number] #### [facility] CLIA [id number] [address] [place] [address] OF AMERICACASE REPORTNoMercy Health St. Anne Hospital on above:Order Comment: Specimen Type: FORMALIN-FIXED PARAFFIN- EMBEDDED TISSUE SPECIMEN Ordering Facility: AP Outside Review Address: , ,Result Comment: Surgical Pathology Report Case: [id number] Authorizing Provider: Zack Cordoba MD Collected: 02/10/2025 10:21 PM Ordering Location: [facility] Received: 02/10/2025 10:19 PM [facility] Pathologist: Stacy Hassan MD Specimen: Slide(s), 2 SLIDES ([id number])Performed By: #### [id number] #### [facility] CLIA [id number] [address] [place] [address] STATES OF [facility] HOSPITALFINAL DIAGNOSISNormSelect [facility] on above:Order Comment: Specimen Type: FORMALIN-FIXED PARAFFIN-EMBEDDED TISSUE SPECIMEN Ordering Facility: [facility] Outside Review Address: , ,Result Comment: Review of outside slides Vulva, biopsy: Consistent with condyloma. at 1516 EDTPerformed By: #### [id number] #### [facility] CLIA [id number] [address] [place] [address] STATES OF AMERICAFINAL PERFORMING LABNoMercy Health St. [facility] on above:Order Comment: Specimen Type: FORMALIN-FIXED PARAFFIN-EMBEDDED TISSUE SPECIMEN Ordering Facility: [facility] Outside Review Address: , ,Result Comment: Diagnostic interpretation performed at: [facility], [address] [place] [address] CLIA# [id number] Film Mounter: CHARLINE Pedrazaerformed By: #### [id number] #### [facility] CLIA [id number] [address] [place] [address] [place] OF AMERICAMISCELLANEOUS SMEAR CYTOLOGYon 64-84-3231Uuphrscr report Cyto stain Doc (Unsp spec)CommentNOMS Healthcare Comment on above:VULVA INCONCLUSIVE. ATYPICAL SQUAMOUS CELLS OF UNDETERMINED SIGNIFICANCE (ASC-US) (VULVAR). FUNGAL ORGANISMS ARE PRESENT. Pathologist nameCommentNOMS HealthcareComment on above:Eldon Madera MD, PathologistPathology report comments [Interpretation] NarrativeCommentNOMS HealthcareComment on above:Suggest follow up as clinically appropriate.Pathology report gross observation NarrativeCommentNOMS HealthcareComment on above:20ML, LT WHITE, CLOUDY /LCS 02/05/2025 0740 Local Pathology report site of origin NarrativeCommentNOMS HealthcareComment on above: VULVAPerformed by:CommentNOMS HealthcareComment on above:Carmelita Reese, Diaphragm Builder (ASCP)Performed at: 01 - [facility] [id number] Bucket Wash Operator: Savi Cai MD, Phone: [phone] Specimen Comment: No. of containers..01 ThinPrep VialLABCORPNOFL HealthcareNo Panel Informationon 35-66-5948Kbbysorcu ICD code [Identifier]CommentNOMS HealthcareComment on above:N89.8 Z01.419 Z12.4 R87.69CNPNon 28-56-1058CAVLQxycxgmsx (NCCAP) TAYE GAY ([id number]) 1955 F Date Time Provider Department 02/04/25 ZACK CORDOBA [facility] During your visit today, we recorded the following information about you: Reva Finney 02/04/2025 3:42 PM Signed Patient has referral to see Dr. Cordoba diagnosis of recurrent lesion referring provider Linwood Irwin first available is March 09 Please review and advise Thank you RAUL Su Jennifer L 02/05/2025 8:46 AM Signed The path report is scanned. Shantel Winkler 02/09/2025 9:08 AM Signed Do you need second opinion path since it is benign? Farida SinclairNITZA.JAYSON 02/09/2025 9:54 AM Signed Order for path review placed. Farida Sinclair APRN.CNP Allergies As of Date: 02/04/2025 Noted Allergy Reaction SULFA (SULFONAMIDE ANTIBIOTICS) 2018 11 - Vomiting Date Reviewed: 12/18/2019 Reviewed by: Michelle Fritz Ma, MA - Fully Assessed Primary Visit Diagnosis:Vulvar lesion [N90.89] Order(s):OUTSIDE SURG PATH SLIDE REVIEW [[id number]] Order #: [id number] Prescriptions as of 02/09/2025 - polyethylene glycol 3350 (MIRALAX) 17 gram/dose powder Take 17 g by mouth once daily. - docusate sodium (COLACE) 100 mg capsule Take 1 capsule by mouth twice daily. - ibuprofen (MOTRIN) 600 mg tablet Take 1 tablet by mouth every 6 hours as needed for Pain. - acetaminophen (TYLENOL) 325 mg tablet Take 2 tablets by mouth every 4 hours as needed for Pain. - insulin lispro sliding scale 1 (HUMALOG) Inject 1-5 Units subcutaneously w MEALS. - cyanocobalamin (VITAMIN B-12) 1,000 mcg tab 1,000 mcg once daily. - folic acid 1 mg tablet Take 1 mg by mouth once daily. - lisinopril (ZESTRIL, PRINIVIL) 10 mg tablet Take 10 mg by mouth once daily. - metFORMIN (GLUCOPHAGE) 500 mg tablet Take 500 mg by mouth twice daily with meals. - metoclopramide HCl (REGLAN) 10 mg tablet Take 10 mg by mouth four times daily. - nortriptyline (PAMELOR) 50 mg capsule Take 50 mg by mouth daily at bedtime. - omeprazole (PRILOSEC) 20 mg capsule Take 20 mg by mouth once daily. - pioglitazone (ACTOS) 15 mg tablet Take 15 mg by mouth once daily. - simvastatin (ZOCOR) 20 mg tablet Take 20 mg by mouth daily at bedtime. - temazepam (RESTORIL) 30 mg cap Take 30 mg by mouth at bedtime as needed. - terconazole (TERAZOL 7) 0.4 % vaginal cream insert 1 applicatorful vaginally once daily for 7 days Problem List As Of Date 02/04/2025 Noted Resolved Hypertension [I10] Diabetes (HCC) [E11.9] Hypercholesteremia [E78.00] Smoker [F17.200] Encounter Status:Closed by FARIDA SINCLAIR on 02/09/25[facility] lung screeningon 42-03-3029NM lung screeningMARIET[facility] [place] [address] [place], [place] [id number] CT Scan Report Signed Patient: Taye Gay MR#: [id number] 19 : 1955 Acct:[id number] Age/Sex: 69 / F ADM Date: 02/02/25 Loc: CT Room: Type: [facility] Attending Dr: EDVIN Palacios APRNC Copies to: Shantel Norton APRN, CNP Ordering Provider: Shantel Norton APRN, CNP Date of Service: 02/02/25 CT/CT lung screening: F17.210 - Nicotine dependence, cigarettes, uncomplicated CT CHEST WITHOUT CONTRAST, LOW DOSE SCREENING: CLINICAL DATA: A 69-year old current smoker, smoking for 50 pack-years. COMPARISON: CT lung screen 07/25/2023 TECHNIQUE: Noncontrast axial CT scan images of the chest were obtained under the low dose screening CT protocol. Coronal and sagittal reconstructed images were also submitted. FINDINGS: Mediastinum : Suboptimal evaluation due to low-dose technique. Thoracic aorta appears normal in caliber. Pulmonary trunk appears nondilated. No pericardial effusion. No lymphadenopathy. The esophagus is grossly unremarkable. Lungs: No focal consolidation, pneumothorax or pleural effusion. Trachea and distal airways appear patent. Stable 4 mm nodule left lower lobe series 6 image 85. Stable 3 mm noncalcified pulmonary nodule left upper lobe series 6 image 43. Stable 3 mm noncalcified pulmonary nodule right upper lobe serie s 6 image 51. Stable 3 mm subpleural nodule right lower lobe series 6 image 50. No new or enlarging suspicious pulmonary nodules. [...] months. Impression dictated by: Edgar Segovia Jr., Nancy 02/02/2025 12:36 PM Dictation Location: [place] [address] Transcribed By: [facility] 02/02/25 1236 Dictated By: Edgar Segovia Jr, DO 02/02/25 1232 Signed By: 02/02/25 1236[facility] Physician LakwuTcX6w HPLC (Bld) [Mass fraction] Ordered By: Angelique Russell on 90-77-2791CyS8l (Bld) [Mass fraction]8.6 %[facility] NorthNo Panel InformationOrdered By: Angelique Russell on 39-90-4851Vgqjlba Axtryai680RtpzohmbjPremier Health Miami Valley Hospital NorthMR LUMBAR SPINE WO CONTRASTon 39-72-3678HC LUMBAR SPINE WO CONTRASTEXAM: MR LUMBAR SPINE WO CONTRAST History: Low [...] ensure stability. ELECTRONICALLY SIGNED BY: Almas Reeves DONormalNot AvailableAerobic culture with sensitivityOrdered By: Karl Fritz on 17-56-4693Fftelrja identified Aer cx Nom (Unsp spec)Klebsiella oxytocaAbSt. Anthony's Hospital Bacteria identified Aer cx Nom (Unsp spec)Staphylococcus aureusAbBethesda North Hospitaluperficial Wound Cultureon 97-24-4174Cnfcaoorjmc Wound CultureORGANISM: Klebsiella oxytoca (O:KLEOXY) Quantity of Growth Moderate [...] TO ALL B-LACTAM DRUGS. PERFORMED BY: [address] [place] [address] PATHOLOGIST MACHINE RUG CLEANER BENNIE HIGGINBOTHAM M.D.NormalUniversity Of Miami Hospital Physician GroupComment on above: Performed By: #### CMP, MG, PHOS, CBC #### [place] [address] USAXR Foot - right 3 Viewson 26-29-0351Vofaqdr Result: Three views of the right foot: [...] plantar sesamoids and metatarsal head right 1st metatarsal.[facility] HealthcareRadiology Study observation (narrative)[facility] blood glucose measurement by glucometer (mass/volume)Ordered By: Manjit Gleason on 21-54-5960Dvymska [Mass/Vol]234 mg/dLKettering Health Springfield Comment on above:Random Glucose Reference Range is dependent on time and content of last meal. Glucose of more than 200 mg/dL in a nonstressed, ambulatory subject supports the diagnosis of Diabetes Mellitus.Result Comment: Random Glucose Reference Range is dependent on time and content of last meal. Glucose of more than 200 mg/dL in a nonstressed, ambulatory subject supports the diagnosis of Diabetes Mellitus.Performed By: #### CMP, MG, PHOS, CBC #### [facility] [address] [place] [address] USAGlucose Glucometer (BldC) [Mass/Vol]Ordered By: Manjit Gleason on 04-46-2734Udbfmhy [Mass/Vol]Capillary blood glucose measurement by glucometer (mass/volume)[facility] Hospital NorthComment on above:Random Glucose Reference Range is dependent on time and content of last meal. Glucose of more than 200 mg/dL in a nonstressed, ambulatory subject supports the diagnosis of Diabetes Mellitus.Glucose Poct Glucometerson 38-68-8520Hndswgs1 Glu2: Cleaned MeterOrlando VA Medical Center Physician GroupComment on above:Result Comment: PERFORMED BY: [place] [address] PATHOLOGIST MACHINE RUG CLEANER LE MACE M.D.Performed By: #### CMP, MG, PHOS, CBC #### [facility] [address] [place] [address] USANo Panel InformationOrdered By: Manjit Gleason on 09-10-2024 Miscellaneous Pathology TestSee commentPremier Health Miami Valley Hospital NorthComment on above:See report. Scanned copy available in EMR.Bedside Glucose CommentGlu2: cleaned Bethes[facility] North HospitalPathology Request for Lab Corpon 44-26-1109Nqeiuvnkh Request for Lab CorpNoCape Fear Valley [facility] Physician Group Comment on above:Order Comment: GI SPECIMENResult Comment: See report. Scanned copy available in EMR. PERFORMED BY: [address] [address] PATHOLOGIST MACHINE RUG CLEANER LE MACE M.D.Performed By: #### CMP, MG, PHOS, CBC #### [facility] [address] [place] [address] WTTYdZ2f HPLC (Bld) [Mass fraction]on 84-11-4557SyY5o (Bld) [Mass fraction]Hemoglobin A1c/Hemoglobin.total in Blood by HPLCPremier Health Miami Valley Hospital NorthHbA1c (Bld) [Mass fraction]8.8 %[facility] NorthNo Panel Informationon 24-84-5229Urhxhbd Zjonazv204EbkpjzmubPremier Health Miami Valley Hospital NorthUS ankle/arm indiceson 02-09-8544WL ankle/arm indices [facility] [address] [place] [address] Ultrasound Report Signed Patient: Taye Gay MR#: [id number] 19 : 1955 Acct:[id number] Age/Sex: 68 / F ADM Date: 07/22/24 [facility] Room: Type: [facility] Attending Dr: Tray Nava MD Ordering [...] Eugenio Rob M.D.07/23/2024 9:21 AM Dictation Location: [place] [address] Tech: Carmelita Horowitz Transcribed By: [facility] 07/23/24 0921 Dictated By: Eugenio Rob MD 07/23/24 0920 Signed By: 07/23/24 0921[facility] Physician GroupChrist Hospital Cultureon 07-06-2024 Bacteria identified Cx Nom (U)ORGANISM: Klebsiella oxytoca (O:KLEOXY) [place] Count >100,000 Aerobic FAMILIA Charge (NMIC56) SUSCEPTIBILITY [...] S <2 Tobramycin S <2 Trimethoprim/Sulfamethoxazole S 03/17 S = SUSCEPTIBLE I = [...] RESISTANT TO ALL B-LACTAM DRUGS. PERFORMED BY: [place] [address] PATHOLOGIST MACHINE RUG CLEANER LE MACE M.D.NormalUniversity Of Miami Hospital Physician GroupComment on above: Performed By: #### CMP, MG, PHOS, CBC #### [place] [address] USAUrine cultureOrdered By: Deneen Frost on 07-06-2024 Bacteria identified Cx Nom (U)AbnormalPremier Health Miami Valley Hospital NorthAlanine aminotransferase [Enzymatic activity/volume] in Serum or PlasmaOrdered By: Angelique Russell on 27-91-8741ONT [Catalytic activity/Vol]Alanine aminotransferase [Enzymatic activity/volume] in Serum or PlasmaPremier Health Miami Valley Hospital NorthAlbumin [Mass/volume] in Serum or Plasma by Bromocresol green (BCG) dye binding methoOrdered By: Angelique Russell on 32-11-1941Peqvotq BCG dye [Mass/Vol] Albumin [Mass/volume] in Serum or Plasma by Bromocresol green (BCG) dye binding metho3.5-5.7FRegency Hospital Cleveland EastAlkaline phosphatase [Enzymatic activity/volume] in Serum or PlasmaOrdered By: Angelique Russell on 45-96-3921UVC [Catalytic activity/Vol]Alkaline phosphatase [Enzymatic activity/volume] in Serum or Sqgnbq13-864RzzxzpjjqPremier Health Miami Valley Hospital NorthAspartate aminotransferase [Enzymatic activity/volume] in Serum or PlasmaOrdered By: Angelique Russell on 29-48-4836UUZ [Catalytic activity/Vol]Aspartate aminotransferase [Enzymatic activity/volume] in Serum or Uyvkrm56-15YqdfoukbmPremier Health Miami Valley Hospital NorthB-Type Natriuretic Peptideon 06-41-6978Vkwxlqmyeko peptide B (Bld) [Mass/Vol]54.0 pg/mL Normal5-100[facility] Physician North Mississippi Medical CenterComment on above:Result Comment: PERFORMED BY: [place] [address] PATHOLOGIST MACHINE RUG CLEANER LE MACE M.D.Performed By: #### CMP, MG, PHOS, CBC #### [place] [address] USABCR-ABL Neogenomicon 81-27-3515BMM-ABL NeogenomicNormalThAllegiance Specialty Hospital of GreenvilleComment on above:Result Comment: See report. Scanned copy available in EMR. PERFORMED BY: [place] [address] PATHOLOGIST MACHINE RUG CLEANER LE MACE M.D.Performed By: #### CMP, MG, PHOS, CBC #### [facility] [address] [place] [address] USABasophils Auto (Bld) [#/Vol]Ordered By: Nataliya Jane on 73-99-1794Abovxjphh (Bld) [#/Vol]Automated basophil count0.0-0.2FRegency Hospital Cleveland EastBasophils/100 WBC Auto (Bld)Ordered By: Nataliya Jane on 21-93-6144Capdhiblg/100 WBC (Bld)Automated basophil %.[facility] Hospital NorthBilirubin.total [Mass/volume] in Serum or PlasmaOrdered By: Angelique Rusesll on 36-58-4840Pguzuoatq [Mass/Vol]Bilirubin.total [Mass/volume] in Serum or Plasma0.3-1.0[facility] W Auto Differential panel (Bld)on 50-62-4245Fxqwyxggg (Bld) [#/Vol]0 10*3/uL0.0 - 0.2 10*3/uLNOMS HealthcareBasophils/100 WBC Manual cnt (Syn fld)0.5 %.[facility] HealthcareEosinophils (Bld) [#/Vol]0.2 10*3/uL0.0 - 0.45 10*3/uLNOMS HealthcareEosinophils/100 WBC Manual cnt (Syn fld)2.7 %.[facility]–SmithvilleErythrocyte distribution width (RBC) [Ratio]14.6 %11.9 - 15.3 %[facility]–SmithvilleHematocrit (Bld) [Volume fraction]46.4 %34.0 - 46.4 %[facility]–SmithvilleHemoglobin (Bld) [Mass/Vol]15.8 g/oLEkkl17.8 - 15.4 g/dLHIGHLAND RIDGE HOSPITAL HealthcareInterpretation and review of laboratory resultsAbnormalSaint Luke's North Hospital–SmithvilleLymphocytes (Bld) [#/Vol]1.6 10*3/uL1.00 - 4.8 10*3/uLNOMS Healthcare Lymphocytes/100 WBC Manual cnt (Syn fld)23.1 %.[facility]–SmithvilleMCH (RBC) [Entitic mass]32.6 pg24.7 - 34.3 pgSaint Luke's North Hospital–SmithvilleMCHC (RBC) [Mass/Vol]34.2 g/dL32.0 - 35.0 g/dLSaint Luke's North Hospital–SmithvilleMCV (RBC) [Entitic vol]95.3 fL80 - 100 fLSaint Luke's North Hospital–Smithville Monocytes (Bld) [#/Vol]0.5 10*3/uL0.0 - 0.8 10*3/uLNOMS Healthcare Monocytes+Macrophages/100 WBC Manual cnt (Syn fld)6.6 %.[facility] Neutrophils (Bld) [#/Vol]4.6 10*3/uL1.8 - 7.7 10*3/uLNOMS Healthcare Neutrophils/100 WBC Manual cnt (Syn fld)67.1 %.[facility]–SmithvilleNRBC0.1 /100{WBC}0 - 0.5 /100{WBC}[facility]–SmithvillePlatelet mean volume (Bld) [Entitic vol]10.4 fL 6.3 - 10.7 fLNOMS HealthcarePlatelets (Bld) [#/Vol]120 10*3/jKEwo401 - 450 10*3/uLNOMS HealthcareRBC LM.HPF (Urine sed) [#/Area]4.86 10*6/uL3.60 - 5.00 10*6/uLNOMS HealthcareWBC (Bld) [#/Vol]6.9 10*3/uL3.8 - 11.6 10*3/uLNOMS HealthcareWBC LM.HPF (Urine sed) [#/Area]6.9 10*3/uL3.8 - 11.6 10*3/uLNOMS HealthcareNOMS HealthcareCalcium [Mass/volume] in Serum or PlasmaOrdered By: Angelique Russell on 36-73-5803Upjwrtg [Mass/Vol]Calcium [Mass/volume] in Serum or Plasma8.6-10.3FRegency Hospital Cleveland EastCarbon dioxide, total [Moles/volume] in Serum or PlasmaOrdered By: Angelique Russell on 96-57-3068YG8 [Moles/Vol]Carbon dioxide, total [Moles/volume] in Serum or Pahtns78.0-31.0 [facility] NorthChloride [Moles/volume] in Serum or Plasma Ordered By: Angelique Russell on 13-55-5434Luwlmvhx [Moles/Vol]Chloride [Moles/volume] in Serum or Phvyhf73-350LgkarugetPremier Health Miami Valley Hospital North Cholesterol [Mass/volume] in Serum or PlasmaOrdered By: Angelique Russell on 91-20-1701Jpyezxikgjf [Mass/Vol]Cholesterol [Mass/volume] in Serum or PlasmaLow 140-200Prem[facility] Hospital NorthComment on above:Chol less than 200 mg/dl low riskChol 201-239 mg/dl borderline riskChol 240 mg/dl and greater high riskCholesterol in HDL [Mass/volume] in Serum or PlasmaOrdered By: Angelique Russell on 53-50-0089Sqxsuxkradu in HDL [Mass/Vol]Serum or plasma high density lipoprotein (HDL) cholesterol nztofqoegbv10-68OccuqiyeyPremier Health Miami Valley Hospital North Comment on above:HDL CHOL ATP-III CLASSIFICATION Cardiovascular RiskHDL > or equal to 60 mg/dL LOWHDL < 40 mg/dL HIGHCholesterol in LDL Calc [Mass/Vol] Ordered By: Angelique Russell on 82-71-5977Fhagahynyxx in LDL [Mass/Vol]Cholesterol in LDL [Mass/volume] in Serum or Plasma by calculationPremier Health Miami Valley Hospital NorthComment on above:LDL ATP III CLASSIFICATIONLDL less than 100 mg/dL OptimalLDL 100-129 mg/dL Near or above wsxneqvXXX647-305 mg/dL Borderline highLDL 160-189 mg/dL HighLDL greater than 189 mg/dL Very highCholesterol in VLDL Calc [Mass/Vol]Ordered By: Angelique Russell on 84-27-7040Seoffectiwv in VLDL [Mass/Vol]Cholesterol in VLDL [Mass/volume] in Serum or Plasma by calculation [facility] NorthComplete Blood Count Auto Diffon 06-26-2024 Basophils (Bld) [#/Vol]0.0 10*3/uLNormal0.0-0.2[facility] Comment on above:Result Comment: PERFORMED BY: [place] [address] PATHOLOGIST MACHINE RUG CLEANER LE MACE M.D.Performed By: #### CMP, MG, PHOS, CBC #### [facility] [address] [place] [address] USABasophils/100 WBC (Bld)0.5 %Normal.The [facility] Physician GroupComment on above:Performed By: #### CMP, MG, PHOS, CBC #### [facility] [address] [place] [address] USAEosinophils (Bld) [#/Vol]0.2 10*3/uLNormal0.0-0.45The [facility] Physician GroupComment on above:Performed By: #### CMP, MG, PHOS, CBC #### [facility] [address] [place] [address] USAEosinophils/100 WBC (Bld)2.7 %Normal.The [facility] Physician GroupComment on above:Performed By: #### CMP, MG, PHOS, CBC #### [place] [address] USAErythrocyte distribution width (RBC) [Ratio]14.6 %Normal 11.9-15.3The [facility] Physician GroupComment on above:Performed By: #### CMP, MG, PHOS, CBC #### [place] [address] USAHematocrit (Bld) [Volume fraction]46.4 %Twhknt13.0-46.4The [facility] Physician GroupComment on above:Performed By: #### CMP, MG, PHOS, CBC #### [place] [address] USAHemoglobin (Bld) [Mass/Vol]15.8 g/gHYejb08.8-15.4The [facility] Physician GroupComment on above:Performed By: #### CMP, MG, PHOS, CBC #### [place] [address] USALymphocytes (Bld) [#/Vol]1.6 10*3/uLNormal1.00-4.8The [facility] Physician GroupComment on above:Performed By: #### CMP, MG, PHOS, CBC #### [place] [address] USALymphocytes/100 WBC (Bld)23.1 %Normal.The [facility] Physician GroupComment on above:Performed By: #### CMP, MG, PHOS, CBC #### [place] [address] USAMCH (RBC) [Entitic mass]32.6 uaUvljpt74.7-34.3The [facility] Physician GroupComment on above:Performed By: #### CMP, MG, PHOS, CBC #### [place] [address] USAMCV (RBC) [Entitic vol]95.3 pDCqljnl48-869Hru [facility] Physician GroupComment on above:Performed By: #### CMP, MG, PHOS, CBC #### [place] [address] USAMean Corpuscular HGB Conc34.2 g/uIDdgfye23.0-35.0The [facility] Physician GroupComment on above:Performed By: #### CMP, MG, PHOS, CBC #### [facility] [address] [place] [address] USAMonocytes (Bld) [#/Vol]0.5 10*3/uLNormal0.0-0.8The [facility] Physician GroupComment on above:Performed By: #### CMP, MG, PHOS, CBC #### [facility] [address] [place] [address] USAMonocytes/100 WBC (Bld)6.6 %Normal.The [facility] Physician GroupComment on above:Performed By: #### CMP, MG, PHOS, CBC #### [place] [address] USANeutrophils (Bld) [#/Vol]4.6 10*3/uLNormal1.8-7.7The [facility] Physician GroupComment on above:Performed By: #### CMP, MG, PHOS, CBC #### [facility] [address] [place] [address] USANeutrophils/100 WBC (Bld)67.1 %Normal.The [facility] Physician GroupComment on above:Performed By: #### CMP, MG, PHOS, CBC #### [facility] [address] [place] [address] USANRBC%0.1 /100{WBC}Normal0-0.5The [facility] Comment on above:Performed By: #### CMP, MG, PHOS, CBC #### [facility] [address] [place] [address] USAPlatelet mean volume (Bld) [Entitic vol]10.4 fLNormal 6.3-10.7The [facility] Physician GroupComment on above:Performed By: #### CMP, MG, PHOS, CBC #### [facility] [address] [place] [address] USAPlatelets (Bld) [#/Vol]120 10*3/zSUoa767-063Nwo [facility] Physician GroupComment on above:Performed By: #### CMP, MG, PHOS, CBC #### [facility] [address] [place] [address] USARBC (Bld) [#/Vol]4.86 10*6/uLNormal3.60-5.00The [facility] Physician GroupComment on above:Performed By: #### CMP, MG, PHOS, CBC #### [place] [address] USAWBC (Bld) [#/Vol]6.9 10*3/uLNormal3.8-11.6The [facility] Physician GroupComment on above:Performed By: #### CMP, MG, PHOS, CBC #### [place] [address] USAComprehensive Metabolic Panelon 69-80-1432Mtodqfe [Mass/Vol]3.8 g/dLNormal3.5-5.7The [facility] Physician GroupComment on above: Performed By: #### CMP, MG, PHOS, CBC #### [place] [address] USAAlbumin/Globulin [Mass ratio]1.5 {ratio}NormalThe [facility]rium Health Physician GroupComment on above:Performed By: #### CMP, MG, PHOS, CBC #### [place] [address] USAALP [Catalytic activity/Vol]92 U/BSlowhc81-466Smu [facility] Physician GroupComment on above:Result Comment: PERFORMED BY: [place] [address] PATHOLOGIST MACHINE RUG CLEANER LE MACE M.D.Performed By: #### CMP, MG, PHOS, CBC #### [place] [address] USAALT [Catalytic activity/Vol]23 U/LNormal7-52The [facility] Physician GroupComment on above:Performed By: #### CMP, MG, PHOS, CBC #### [facility] [address] [place] [address] USAAnion gap [Moles/Vol]12.2 mmol/LNormal6.0-15.0The [facility] Physician GroupComment on above:Performed By: #### CMP, MG, PHOS, CBC #### [facility] [address] [place] [address] USAAST [Catalytic activity/Vol]36 U/MCebyxx27-56Cpz [facility] Physician GroupComment on above:Performed By: #### CMP, MG, PHOS, CBC #### [facility] [address] [place] [address] USABilirubin [Mass/Vol]0.4 mg/dLNormal0.3-1.0The [facility] Physician GroupComment on above:Performed By: #### CMP, MG, PHOS, CBC #### [facility] [address] [place] [address] USACalcium [Mass/Vol]9.4 mg/dLNormal8.6-10.3The [facility] Physician GroupComment on above:Performed By: #### CMP, MG, PHOS, CBC #### [facility] [address] [place] [address] USAChloride [Moles/Vol]103 mmol/GAochjk71-507Axg [facility] Physician GroupComment on above:Performed By: #### CMP, MG, PHOS, CBC #### [facility] [address] [place] [address] USACO2 [Moles/Vol]29.0 mmol/QBzazbt64.0-31.0The [facility] Physician GroupComment on above:Performed By: #### CMP, MG, PHOS, CBC #### [facility] [address] [place] [address] USACreatinine [Mass/Vol]0.93 mg/dLNormal0.60-1.20The [facility] Physician GroupComment on above:Performed By: #### CMP, MG, PHOS, CBC #### [facility] [address] [place] [address] USAGFR/1.73 sq M.predicted MDRD (S/P/Bld) [Vol rate/Area] mL/min/{1.73_m2}NormalThe [facility]rium Health Physician GroupComment on above:Performed By: #### CMP, MG, PHOS, CBC #### [place] [address] USAGlobulin (S) [Mass/Vol]2.6 g/dLNormalThe [facility]rium Health Physician GroupComment on above:Performed By: #### CMP, MG, PHOS, CBC #### [place] [address] USAGlucose [Mass/Vol]256 mg/nXMqhx16-582Blc [facility] Physician GroupComment on above:Result Comment: Random Glucose Reference Range is dependent on time and content of last meal. Glucose of more than 200 mg/dL in a nonstressed, ambulatory subject supports the diagnosis of Diabetes Mellitus. ADA recommended reference rangePerformed By: #### CMP, MG, PHOS, CBC #### [place] [address] USAPotassium [Moles/Vol]4.2 mmol/LNormal3.5-5.1The [facility] Physician GroupComment on above:Performed By: #### CMP, MG, PHOS, CBC #### [place] [address] USAProtein [Mass/Vol]6.4 g/dLNormal6.4-8.9The [facility] Physician GroupComment on above:Performed By: #### CMP, MG, PHOS, CBC #### [place] [address] USASodium [Moles/Vol]140 mmol/AJxblsv190-963Srp [facility] Physician GroupComment on above:Performed By: #### CMP, MG, PHOS, CBC #### [place] [address] USAUrea nitrogen [Mass/Vol]9 mg/dLNormal7-25The [facility] Physician GroupComment on above:Performed By: #### CMP, MG, PHOS, CBC #### [place] [address] USACreatinine [Mass/volume] in Serum or PlasmaOrdered By: Angelique Russell on 36-06-5356Jdjgbdbqco [Mass/Vol]Creatinine [Mass/volume] in Serum or Plasma0.60-1.20[facility] NorthCreatinine [Mass/volume] in UrineOrdered By: Tondra Russell on 78-84-0966Ngqcbtbzho (U) [Mass/Vol]Creatinine [Mass/volume] in UrinePremier Health Miami Valley Hospital NorthComment on above:No reference range establishedECG 12 Leadon 26-32-5916Hawecb sinus rhythmCPACS [facility] Work Phone: Eosinophils Auto (Bld) [#/Vol]Ordered By: Nataliya Jane on 91-59-7300Znevigzooyt (Bld) [#/Vol]Automated eosinophil count 0.0-0.45[facility] Hospital NorthEosinophils/100 WBC Auto (Bld)Ordered By: Nataliya Jane on 71-21-2002Gkvrpruysmx/100 WBC (Bld)Automated eosinophil %. [facility] Hospital NorthErythrocyte distribution width Auto (RBC) [Ratio]Ordered By: Nataliya Jane on 22-09-1230Rscaubzgpto distribution width (RBC) [Ratio]Erythrocyte distribution width [Ratio] by Automated count11.9-15.3 [facility] Hospital NorthFlowcytometry Neogenomicon 06-26-2024 Flowcytometry [facility] Physician GroupComment on above: Result Comment: See report. Scanned copy available in EMR.Performed By: #### CMP, MG, PHOS, CBC #### [facility] [address] [place] [address] USAGlobulin Calc (S) [Mass/Vol]Ordered By: Angelique Russell on 56-25-4370Uwsifkzh (S) [Mass/Vol]Serum globulin measurement by calculation (mass/volume)[facility] NorthGlucose [Mass/volume] in Serum or PlasmaOrdered By: Angelique Russell on 76-51-5813Vrbrydv [Mass/Vol]Glucose [Mass/volume] in Serum or HenhrdGrpj21-639CqilvayzoPremier Health Miami Valley Hospital North Comment on above:ADA recommended reference rangeRandom Glucose Reference Range is dependent on time and content of last meal. Glucose of more than 200 mg/dL in a nonstressed, ambulatory subject supports the diagnosisof Diabetes Mellitus. Hematocrit Auto (Bld) [Volume fraction]Ordered By: Nataliya Jane on 06-26-2024 Hematocrit (Bld) [Volume fraction]Hematocrit [Volume Fraction] of Blood by Automated count34.0-46.4FRegency Hospital Cleveland EastHemoglobin [Mass/volume] in BloodOrdered By: Nataliya Gaonaoren on 84-67-3578Taktcnfeyj (Bld) [Mass/Vol]Hemoglobin [Mass/volume] in DhvfvLhch13.8-15.4FRegency Hospital Cleveland EastJAK 2 Neogenomicon 12-91-2635KLF 2 NeogenomicNormWellington Regional Medical Center Physician GroupComment on above:Result Comment: See report. Scanned copy available in EMR.Performed By: #### CMP, MG, PHOS, CBC #### [facility] [address] [place] [id number] USALeukocytes [#/volume] corrected for nucleated erythrocytes in Blood by Automated counOrdered By: Nataliya Gaonaoren on 29-15-8154MYL corrected for nucl RBC Auto (Bld) [#/Vol]Leukocytes [#/volume] corrected for nucleated erythrocytes in Blood by Automated coun3.8-11.6FRegency Hospital Cleveland East Lipid Panelon 72-13-8664Sorzpiuqnyg [Mass/Vol]93 mg/rXJfr871-052Xmj [facility] Physician GroupComment on above:Result Comment: Chol less than 200 mg/dl low risk Chol 201-239 mg/dl borderline risk Chol 240 mg/dl and greater high riskPerformed By: #### CMP, MG, PHOS, CBC #### [facility] [address] [place] [address] USACholesterol in HDL [Mass/Vol]27 mg/zGWkequd54-76Xnh [facility] Physician GroupComment on above:Result Comment: HDL CHOL ATP-III CLASSIFICATION Cardiovascular Risk HDL > or equal to 60 mg/dL LOW HDL < 40 mg/dL HIGHPerformed By: #### CMP, MG, PHOS, CBC #### [facility] [address] [place] [address] USACholesterol.total/Cholesterol in HDL [Mass ratio]3.4 {ratio}Normal<5.0The [facility]rium Health Physician GroupComment on above:Performed By: #### CMP, MG, PHOS, CBC #### [facility] [address] [place] [address] USALDL Cholesterol,Brtwucgcnz04 mg/dLNormal0-100The [facility] Health Physician GroupComment on above:Result Comment: LDL ATP III CLASSIFICATION LDL less than 100 mg/dL Optimal LDL 100-129 mg/dL Near or above optimal LDL 130-159 mg/dL Borderline high LDL 160-189 mg/dL High LDL greater than 189 mg/dL Very highPerformed By: #### CMP, MG, PHOS, CBC #### [facility] [address] [place] [address] USATriglyceride w/Inisrz077 mg/dLHigh0-149The [facility] Health Physician GroupComment on above:Result Comment: TRIG ATP III CLASSIFICATION TRIG less than 150 mg/dL Normal TRIG 150-199 mg/dL Borderline high TRIG 200-500 mg/dL High TRIG greater than 500 mg/dL Very high Standard traceable to the Center for Disease Conrtrol and Prevention (CDC) test method.Performed By: #### CMP, MG, PHOS, CBC #### [facility] [address] [place] [address] USAVLDL ZVOTTAJXZGD62 mg/dLNormalThe Atrium Health Physician GroupComment on above:Performed By: #### CMP, MG, PHOS, CBC #### [facility] [address] [place] [address] USALymphocytes Auto (Bld) [#/Vol]Ordered By: Nataliya Jane on 78-51-1739Rmitpdmtsez (Bld) [#/Vol]Lymphocytes [#/volume] in Blood by Automated count1.00-4.8[facility] NorthLymphocytes/100 WBC Auto (Bld) Ordered By: Nataliya Jane on 55-00-5155Khhhooeuyft/100 WBC (Bld)Lymphocytes/100 leukocytes in Blood by Automated count.[facility] NorthMCH Auto (RBC) [Entitic mass]Ordered By: Nataliya Jane on 30-74-3519QZW (RBC) [Entitic mass]MCH [Entitic mass] by Automated count24.7-34.3FRegency Hospital Cleveland EastHC Auto (RBC) [Mass/Vol]Ordered By: Nataliya Gaonaoren on 63-92-6850TOER (RBC) [Mass/Vol]MCHC [Mass/volume] by Automated count32.0-35.0[facility] OhioV Auto (RBC) [Entitic vol]Ordered By: Nataliya Lucinda on 22-49-2990MGI (RBC) [Entitic vol]MCV [Entitic volume] by Automated -996 [facility] NorthMicroAlb Creat Ratio,Uon 59-90-5956Cwmhfbq DL <= 20 mg/L (U) [Mass/Vol]mg/dLNormal0.0-1.8The [facility] Health Physician GroupComment on above:Performed By: #### CMP, MG, PHOS, CBC #### [facility] [address] [place] [address] USACreatinine, Urine (Random)65.00 mg/dLNormalThe [facility] Physician [facility] Mississippi Medical CenterComment on above:Result Comment: No reference range established Performed By: #### CMP, MG, PHOS, CBC #### [facility] [address] [place] [address] USAMicroalbumin/Creatinine RatioNot performedNormal0.0-30.0 The [facility] Health Physician GroupComment on above:Result Comment: PERFORMED BY: [facility] [address] [place] [address] PATHOLOGIST MACHINE RUG CLEANER LE MACE M.D.Performed By: #### CMP, MG, PHOS, CBC #### [facility] [address] [place] [id number] USAMicroalbumin [Mass/volume] in UrineOrdered By: Angelique Russell on 32-43-0825Bjehgir DL <= 20 mg/L (U) [Mass/Vol]Microalbumin [Mass/volume] in Urine0.0-1.8[facility] Hospital NorthMonocytes Auto (Bld) [#/Vol]Ordered By: Nataliya Jane on 03-44-9751Nyfdxajdz (Bld) [#/Vol] Automated blood monocyte count0.0-0.8[facility] Monocytes/100 WBC Auto (Bld)Ordered By: Nataliya Jane on 78-94-9063Lsjgmahts/100 WBC (Bld)Automated monocyte %.[facility] Hospital NorthNatriuretic peptide B [Mass/Vol]Ordered By: Roland Faust on 19-86-8481Omnadhhwolz peptide B (Bld) [Mass/Vol]BNP ser/plas5-100[facility] Neutrophils Auto (Bld) [#/Vol]Ordered By: Nataliya Jane on 29-31-6723Aqahuyljfum (Bld) [#/Vol]Neutrophils [#/volume] in Blood by Automated count1.8-7.7FRegency Hospital Cleveland EastNeutrophils/100 WBC Auto (Bld)Ordered By: Nataliya Jane on 00-32-4025Iuiukhhsaom/100 WBC (Bld)Automated neutrophil %.[facility] NorthNo Panel InformationOrdered By: Angelique Russell on 06-26-2024 Estimated GFR (CKD-EPI)> 60.0 mL/MinPremier Health Miami Valley Hospital NorthPharmacy Creatinine Clearance (ChemN/AFRegency Hospital Cleveland EastNo Panel InformationOrdered By: Nataliya Jane on 21-89-9004IHY/ablSee [facility] Elyria Medical CenterComment on above:See report. Scanned copy available in EMR.JAK2 [id number] [facility]ria Medical CenterComment on above:See report. Scanned copy available in EMR.Nucleated erythrocytes [Presence] in Blood by Automated countOrdered By: Nataliya Jane on 74-12-0844Pqmgifziu RBC Auto Ql (Bld)Nucleated erythrocytes [Presence] in Blood by Automated count0-0.5FRegency Hospital Cleveland EastPlatelet mean volume Auto (Bld) [Entitic vol]Ordered By: Nataliya Jane on 13-39-6722Rpukedyc mean volume (Bld) [Entitic vol]Platelet mean volume [Entitic volume] in Blood by Automated count6.3-10.7FRegency Hospital Cleveland EastPlatelets Auto (Bld) [#/Vol]Ordered By: Nataliya Jane on 58-11-7086Ucltsanmq (Bld) [#/Vol]Platelets [#/volume] in Blood by Automated rkwjiFqv209-014TodqdiyuvPremier Health Miami Valley Hospital NorthPotassium [Moles/volume] in Serum or PlasmaOrdered By: Angelique Russell on 80-06-8054Yvlowuywv [Moles/Vol] Potassium [Moles/volume] in Serum or Plasma3.5-5.1FRegency Hospital Cleveland EastProtein [Mass/volume] in Serum or PlasmaOrdered By: Angelique Russell on 62-46-2364Xgmbcdc [Mass/Vol]Protein [Mass/volume] in Serum or Plasma6.4-8.9 [facility] NorthRBC Auto (Bld) [#/Vol]Ordered By: Nataliya Jane on 14-06-9537EPD (Bld) [#/Vol]Erythrocytes [#/volume] in Blood by Automated count3.60-5.00[facility] - Cincinnatierum or plasma albumin/globulin mass ratioOrdered By: Angelique Russell on 06-01-2428Tqcahrn/Globulin [Mass ratio] Serum or plasma albumin/globulin mass ratioPremier Health Miami Valley Hospital North Serum or plasma anion gap determinationOrdered By: Angelique Russell on 06-26-2024 Anion gap [Moles/Vol]Serum or plasma anion gap determination6.0-15.0[facility] - Cincinnatierum or plasma total cholesterol/high density lipoprotein (HDL) cholesterol mass ratOrdered By: Angelique Russell on 06-26-2024 Cholesterol.total/Cholesterol in HDL [Mass ratio]Serum or plasma total cholesterol/high density lipoprotein (HDL) cholesterol mass rat<5.0[facility] - Cincinnatiodium [Moles/volume] in Serum or PlasmaOrdered By: Angelique Russell on 63-84-5688Brqtbc [Moles/Vol]Sodium [Moles/volume] in Serum or Eirtnq350-477ZalvmlrbsPremier Health Miami Valley Hospital NorthThyroid Stim Hormone w/Rflxon 35-36-4906Hlfawmd Stim Hormone w/Rflx1.45 u[iU]/mLNormal0.45-5.33The [facility] Health Physician GroupComment on above:Result Comment: PERFORMED BY: [place] [address] PATHOLOGIST MACHINE RUG CLEANER LE MACE M.D.Performed By: #### CMP, MG, PHOS, CBC #### [place] [address] USAThyrotropin [Units/volume] in Serum or PlasmaOrdered By: Juliodra Yvonne on 39-87-4427TSW QnThyrotropin [Units/volume] in Serum or Plasma 0.45-5.33[facility] NorthTriglyceride [Mass/volume] in Serum or PlasmaOrdered By: Tondra Mapus on 36-47-6877Zlxnhaivsbvl [Mass/Vol]Triglyceride [Mass/volume] in Serum or PlasmaHigh0-149[facility] Comment on above:TRIG ATP III CLASSIFICATIONTRIG less than 150 mg/dL NormalTRIG 150-199 mg/dL Borderline highTRIG 200-500 mg/dL High TRIG greater than 500 mg/dL Very highStandard traceable to the Center for Disease Conrtrol and Prevention (CDC) test method.Urea nitrogen [Mass/volume] in Serum or PlasmaOrdered By: Juliodra Yvonne on 53-13-0782Klbm nitrogen [Mass/Vol]Urea nitrogen [Mass/volume] in Serum or Plasma7[facility] Hospital NorthUrine microalbumin/creatinine mass ratioOrdered By: Juliodra Mapus on 06-26-2024 Albumin/Creatinine DL <= 20 mg/L (U) [Mass ratio]Urine microalbumin/creatinine mass ratioPremier Health Miami Valley Hospital NorthComment on above:Test not performed WBC Auto (Bld) [#/Vol]Ordered By: Nataliya Jane on 75-55-1087EHQ (Bld) [#/Vol] Leukocytes [#/volume] in Blood by Automated count3.8-11.6FRegency Hospital Cleveland EastMR head/brain wo/w conon 53-19-4877ND head/brain wo/w [facility] [place] [address] [place] [address] MRI Report Signed Patient: Taye Gay MR#: [id number] 19 : 1955 Acct:[id number] Age/Sex: 68 / F ADM Date: 05/25/24 Loc: MR Room: Type: [facility] CLI Attending Dr: Sandra Keita DO [...] Eugenio Lazo M.D.05/25/2024 7:59 PM Dictation Location: [place] [address] Transcribed By: [facility] 05/25/241958 Dictated By: Eugenio Lazo DO 05/25/241953 Signed By: 05/25/241958[facility] Physician GroupMagnetic resonance imaging reportOrdered By: Eugenio Lazo on 98-97-7013Glvvg reportMARIETTA OSTEOPATHIC [facility] Main [place] [address] [place] [address] MRI Report Signed Patient: Taye Gay MR#: [id number] : 1955 Acct:[id number] Age/Sex: 68 / F ADM Date: 5 Loc: MR Room: Type: [facility] CLI Attending Dr: Sandra Keita DO [...] Eugenio Lazo M.D.05/25/2024 7:59 PM Dictation Location: [place] [address] Transcribed By: [facility] 05/25/241958 Dictated By: Eugenio Lazo DO 05/25/241953 Signed By: 05/25/241958 [facility] NorthAlanine aminotransferase [Enzymatic activity/volume] in Serum or PlasmaOrdered By: Priscilla Lang on 58-28-0773LBC [Catalytic activity/Vol]Alanine aminotransferase [Enzymatic activity/volume] in Serum or Plasma7-52[facility] NorthAlbumin [Mass/volume] in Serum or Plasma by Bromocresol green (BCG) dye binding methoOrdered By: Priscilla Lang on 24-42-8743Sbrwwrq BCG dye [Mass/Vol]Albumin [Mass/volume] in Serum or Plasma by Bromocresol green (BCG) dye binding metho3.5-5.7FRegency Hospital Cleveland EastAlkaline phosphatase [Enzymatic activity/volume] in Serum or PlasmaOrdered By: Priscilla Lang on 17-55-5340CBU [Catalytic activity/Vol] Alkaline phosphatase [Enzymatic activity/volume] in Serum or Dymipf74-016 [facility] NorthAspartate aminotransferase [Enzymatic activity/volume] in Serum or PlasmaOrdered By: Priscilla Lang on 83-07-4567EEM [Catalytic activity/Vol]Aspartate aminotransferase [Enzymatic activity/volume] in Serum or Oaackg96-17KwaadrtxfPremier Health Miami Valley Hospital NorthBasophils Auto (Bld) [#/Vol]Ordered By: Priscilla Lang on 14-84-5850Ayrnmcith (Bld) [#/Vol]Automated basophil count0.0-0.2FRegency Hospital Cleveland EastBasophils/100 WBC Auto (Bld)Ordered By: Priscilla Lang on 52-20-8420Orsabmbpx/100 WBC (Bld)Automated basophil %.[facility] NorthBilirubin.total [Mass/volume] in Serum or PlasmaOrdered By: Priscilla Lang on 14-23-3712Claowaxzv [Mass/Vol] Bilirubin.total [Mass/volume] in Serum or Plasma0.3-1.0[facility] NorthCalcium [Mass/volume] in Serum or PlasmaOrdered By: Priscilla Lang on 55-48-4112Iljrbxe [Mass/Vol]Calcium [Mass/volume] in Serum or Plasma8.6-10.3 [facility] NorthCarbon dioxide, total [Moles/volume] in Serum or PlasmaOrdered By: Priscilla Lang on 48-95-1112CN7 [Moles/Vol]Carbon dioxide, total [Moles/volume] in Serum or Umevpl41.0-31.0[facility] NorthChloride [Moles/volume] in Serum or PlasmaOrdered By: Priscilla Aggarwal on 74-41-9656Vtrzjdgv [Moles/Vol]Chloride [Moles/volume] in Serum or Wnypun23-088 [facility] NorthComplete Blood Count Auto Diffon 04-30-2024 Basophils (Bld) [#/Vol]0.0 10*3/uLNormal0.0-0.2The [facility] Comment on above:Result Comment: PERFORMED BY: [facility] [address] [place] [id number] PATHOLOGIST MACHINE RUG CLEANER LE MACE M.D.Performed By: #### CMP, MG, PHOS, CBC #### [facility] [address] [place] [address] USABasophils/100 WBC (Bld)0.4 %Normal.The [facility] Health Physician GroupComment on above:Performed By: #### CMP, MG, PHOS, CBC #### [place] [address] USAEosinophils (Bld) [#/Vol]0.2 10*3/uLNormal0.0-0.45The [facility] Health Physician GroupComment on above:Performed By: #### CMP, MG, PHOS, CBC #### [place] [address] USAEosinophils/100 WBC (Bld)2.9 %Normal.The [facility] Health Physician GroupComment on above:Performed By: #### CMP, MG, PHOS, CBC #### [place] [address] USAErythrocyte distribution width (RBC) [Ratio]15.4 %High 11.9-15.3The [facility] Health Physician GroupComment on above:Performed By: #### CMP, MG, PHOS, CBC #### [place] [address] USAHematocrit (Bld) [Volume fraction]44.3 %Qovflb84.0-46.4The [facility] Health Physician GroupComment on above:Performed By: #### CMP, MG, PHOS, CBC #### [place] [address] USAHemoglobin (Bld) [Mass/Vol]14.7 g/uSRsbxrk70.8-15.4The [facility] Health Physician GroupComment on above:Performed By: #### CMP, MG, PHOS, CBC #### [place] [address] USALymphocytes (Bld) [#/Vol]1.8 10*3/uLNormal1.00-4.8The [facility] Health Physician GroupComment on above:Performed By: #### CMP, MG, PHOS, CBC #### [place] [address] USALymphocytes/100 WBC (Bld)24.9 %Normal.The [facility] Health Physician GroupComment on above:Performed By: #### CMP, MG, PHOS, CBC #### [address] (RBC) [Entitic mass]31.4 ydWlnuxg08.7-34.3The [facility] Health Physician GroupComment on above:Performed By: #### CMP, MG, PHOS, CBC #### [address] (RBC) [Entitic vol]94.4 uVLbovzu27-355Rqd [facility] Physician GroupComment on above:Performed By: #### CMP, MG, PHOS, CBC #### [place] [address] USAMean Corpuscular HGB Conc33.3 g/vZKlerud88.0-35.0The [facility] Health Physician GroupComment on above:Performed By: #### CMP, MG, PHOS, CBC #### [place] [address] USAMonocytes (Bld) [#/Vol]0.6 10*3/uLNormal0.0-0.8The [facility] Health Physician GroupComment on above:Performed By: #### CMP, MG, PHOS, CBC #### [place] [address] USAMonocytes/100 WBC (Bld)8.3 %Normal.The [facility] Health Physician GroupComment on above:Performed By: #### CMP, MG, PHOS, CBC #### [place] [address] USANeutrophils (Bld) [#/Vol]4.6 10*3/uLNormal1.8-7.7The [facility] Health Physician GroupComment on above:Performed By: #### CMP, MG, PHOS, CBC #### [place] [address] USANeutrophils/100 WBC (Bld)63.5 %Normal.The [facility] Health Physician GroupComment on above:Performed By: #### CMP, MG, PHOS, CBC #### [facility] [address] [place] [address] USANRBC%0.0 /100{WBC}Normal0-0.5[facility] Comment on above:Performed By: #### CMP, MG, PHOS, CBC #### [facility] [address] [place] [address] USAPlatelet mean volume (Bld) [Entitic vol]9.5 fLNormal 6.3-10.7The [facility] Health Physician GroupComment on above:Performed By: #### CMP, MG, PHOS, CBC #### [facility] [address] [place] [address] USAPlatelets (Bld) [#/Vol]119 10*3/xSVdj538-126Byy [facility] Physician GroupComment on above:Performed By: #### CMP, MG, PHOS, CBC #### [facility] [address] [place] [address] USARBC (Bld) [#/Vol]4.70 10*6/uLNormal3.60-5.00The [facility] Health Physician GroupComment on above:Performed By: #### CMP, MG, PHOS, CBC #### [facility] [address] [place] [address] USAWBC (Bld) [#/Vol]7.3 10*3/uLNormal3.8-11.6The [facility] Health Physician GroupComment on above:Performed By: #### CMP, MG, PHOS, CBC #### [facility] [address] [place] [address] USAComprehensive Metabolic Panelon 33-22-7036Dobcwix [Mass/Vol]3.5 g/dLNormal3.5-5.7The [facility] Health Physician GroupComment on above: Performed By: #### CMP, MG, PHOS, CBC #### [place] [address] USAAlbumin/Globulin [Mass ratio]1.2 {ratio}NormalThe [facility]rium Health Physician GroupComment on above:Performed By: #### CMP, MG, PHOS, CBC #### [facility] [address] [place] [address] USAALP [Catalytic activity/Vol]85 U/SFroqrx54-184Fnj [facility] Physician GroupComment on above:Performed By: #### CMP, MG, PHOS, CBC #### [facility] [address] [place] [address] USAALT [Catalytic activity/Vol]16 U/LNormal7-52The [facility] Health Physician GroupComment on above:Performed By: #### CMP, MG, PHOS, CBC #### [facility] [address] [place] [address] USAAnion gap [Moles/Vol]10.9 mmol/LNormal6.0-15.0The [facility] Physician GroupComment on above:Performed By: #### CMP, MG, PHOS, CBC #### [facility] [address] [place] [address] USAAST [Catalytic activity/Vol]23 U/UAwtytb19-45Zbp [facility] Physician GroupComment on above:Performed By: #### CMP, MG, PHOS, CBC #### [facility] [address] [place] [address] USABilirubin [Mass/Vol]0.5 mg/dLNormal0.3-1.0The [facility] Health Physician GroupComment on above:Performed By: #### CMP, MG, PHOS, CBC #### [facility] [address] [place] [address] USACalcium [Mass/Vol]9.3 mg/dLNormal8.6-10.3The [facility] Physician GroupComment on above:Performed By: #### CMP, MG, PHOS, CBC #### [facility] [address] [place] [address] USAChloride [Moles/Vol]106 mmol/JDsndye40-605Pvq [facility] Physician GroupComment on above:Performed By: #### CMP, MG, PHOS, CBC #### [facility] [address] [place] [address] USACO2 [Moles/Vol]26.9 mmol/IOipahl03.0-31.0The [facility] Physician GroupComment on above:Performed By: #### CMP, MG, PHOS, CBC #### [facility] [address] [place] [address] USACreatinine [Mass/Vol]0.80 mg/dLNormal0.60-1.20The [facility] Physician GroupComment on above:Performed By: #### CMP, MG, PHOS, CBC #### [facility] [address] [place] [address] USACreatinine Clr Calc Bzcignva39.38NormCincinnati Children's Hospital Medical Centere [facility] Physician GroupComment on above:Performed By: #### CMP, MG, PHOS, CBC #### [facility] [address] [place] [address] USAGFR/1.73 sq M.predicted MDRD (S/P/Bld) [Vol rate/Area] mL/min/{1.73_m2}NormalThe [facility]rium Health Physician GroupComment on above:Performed By: #### CMP, MG, PHOS, CBC #### [facility] [address] [place] [address] USAGlobulin (S) [Mass/Vol]2.9 g/dLNoCape Fear Valley Hoke Hospital Physician GroupComment on above:Performed By: #### CMP, MG, PHOS, CBC #### [facility] [address] [place] [address] USAGlucose [Mass/Vol]130 mg/pBFxdb98-244Tkt [facility] Physician GroupComment on above:Result Comment: Random Glucose Reference Range is dependent on time and content of last meal. Glucose of more than 200 mg/dL in a nonstressed, ambulatory subject supports the diagnosis of Diabetes Mellitus. ADA recommended reference rangePerformed By: #### CMP, MG, PHOS, CBC #### [facility] [address] [place] [address] USAPotassium [Moles/Vol]3.8 mmol/LNormal3.5-5.1The [facility] Physician GroupComment on above:Performed By: #### CMP, MG, PHOS, CBC #### [facility] [address] [place] [address] USAProtein [Mass/Vol]6.4 g/dLNormal6.4-8.9The [facility] Physician GroupComment on above:Performed By: #### CMP, MG, PHOS, CBC #### [facility] [address] [place] [address] USASodium [Moles/Vol]140 mmol/IZsvest650-254Omv [facility] Mississippi Medical CenterComment on above:Performed By: #### CMP, MG, PHOS, CBC #### [facility] [address] [place] [address] USAUrea nitrogen [Mass/Vol]9 mg/dLNormal7-25The [facility] Physician GroupComment on above:Performed By: #### CMP, MG, PHOS, CBC #### [facility] [address] [place] [address] USACreatinine [Mass/volume] in Serum or PlasmaOrdered By: Priscilla Lang on 79-25-1637Drsdhvsbvw [Mass/Vol]Creatinine [Mass/volume] in Serum or Plasma0.60-1.20[facility] NorthEosinophils Auto (Bld) [#/Vol]Ordered By: Priscilla Lang on 34-42-4633Ywnrppiwwen (Bld) [#/Vol]Automated eosinophil count0.0-0.45[facility] NorthEosinophils/100 WBC Auto (Bld)Ordered By: Priscilla Lang on 63-16-8986Jliklokiwrj/100 WBC (Bld) Automated eosinophil %.[facility] NorthErythrocyte distribution width Auto (RBC) [Ratio]Ordered By: Priscilla Lang on 80-69-4721Vucsynylnvv distribution width (RBC) [Ratio]Erythrocyte distribution width [Ratio] by Automated uibqpGsna25.9-15.3FRegency Hospital Cleveland EastGlobulin Calc (S) [Mass/Vol]Ordered By: Priscilla Lang on 84-13-1008Iqbwzqkk (S) [Mass/Vol]Serum globulin measurement by calculation (mass/volume)[facility] NorthGlucose Glucometer (BldC) [Mass/Vol]Ordered By: Priscilla Lang on 77-82-8413Ljiphcz [Mass/Vol]Capillary blood glucose measurement by glucometer (mass/volume)[facility] NorthComment on above:Random Glucose Reference Range is dependent on time and content of last meal. Glucose of more than 200 mg/dL in a nonstressed, ambulatory subject supports the diagnosis of Diabetes Mellitus.Glucose Poct Glucometerson 07-14-5452Gfshwbm [Mass/Vol]154 mg/dLNoCape Fear Valley Hoke Hospital Physician GroupComment on above:Result Comment: Random Glucose Reference Range is dependent on time and content of last meal. Glucose of more than 200 mg/dL in a nonstressed, ambulatory subject supports the diagnosis of Diabetes Mellitus. PERFORMED BY: [place] [address] PATHOLOGIST MACHINE RUG CLEANER LE MACE M.D.Performed By: #### CMP, MG, PHOS, CBC #### [facility] [address] [place] [address] USAGlucose [Mass/Vol]134 mg/dLNoCape Fear Valley [facility]oke Hospital Physician [facility] Mississippi Medical CenterComment on above:Result Comment: Random Glucose Reference Range is dependent on time and content of last meal. Glucose of more than 200 mg/dL in a nonstressed, ambulatory subject supports the diagnosis of Diabetes Mellitus. PERFORMED BY: [place] [address] PATHOLOGIST MACHINE RUG CLEANER LE MACE M.D.Performed By: #### CMP, MG, PHOS, CBC #### [facility] [address] [place] [address] USAGlucose [Mass/volume] in Serum or PlasmaOrdered By: Priscilla Lang on 51-14-5429Lnuhxmh [Mass/Vol]Glucose [Mass/volume] in Serum or Plasma Ouzv75-887HidphitzlPremier Health Miami Valley Hospital NorthComment on above:ADA recommended reference rangeRandom Glucose Reference Range is dependent on time and content of last meal. Glucose of more than 200 mg/dL in a nonstressed, ambulatory subject supports the diagnosisof Diabetes Mellitus.Hematocrit Auto (Bld) [Volume fraction]Ordered By: Priscilla Lang on 05-66-4679Ofdpqyrvtu (Bld) [Volume fraction]Hematocrit [Volume Fraction] of Blood by Automated count34.0-46.4 [facility] NorthHemoglobin [Mass/volume] in BloodOrdered By: Priscilla Lang on 63-01-6502Lozqyilxso (Bld) [Mass/Vol]Hemoglobin [Mass/volume] in Blood11.8-15.4FRegency Hospital Cleveland EastLeukocytes [#/volume] corrected for nucleated erythrocytes in Blood by Automated counOrdered By: Priscilla Lang on 47-33-3751HSG corrected for nucl RBC Auto (Bld) [#/Vol]Leukocytes [#/volume] corrected for nucleated erythrocytes in Blood by Automated coun 3.8-11.6FRegency Hospital Cleveland EastLymphocytes Auto (Bld) [#/Vol]Ordered By: Priscilla Lang on 91-29-0848Kqizhljmujv (Bld) [#/Vol]Lymphocytes [#/volume] in Blood by Automated count1.00-4.8[facility] Lymphocytes/100 WBC Auto (Bld)Ordered By: Priscilla Lang on 04-30-2024 Lymphocytes/100 WBC (Bld)Lymphocytes/100 leukocytes in Blood by Automated count. [facility] NorthMCH Auto (RBC) [Entitic mass]Ordered By: Priscilla Lang on 99-14-7651RDW (RBC) [Entitic mass]MCH [Entitic mass] by Automated count24.7-34.3FRegency Hospital Cleveland EastMCHC Auto (RBC) [Mass/Vol]Ordered By: Priscilla Lang on 40-86-1999MRWN (RBC) [Mass/Vol]MCHC [Mass/volume] by Automated count32.0-35.0[facility] NorthMCV Auto (RBC) [Entitic vol]Ordered By: Priscilla Lang on 67-57-2703TZU (RBC) [Entitic vol]MCV [Entitic volume] by Automated vxfja70-980YvpwlaqynPremier Health Miami Valley Hospital NorthMagnesiumon 02-26-4999Rlpvaqqzx [Mass/Vol]1.7 mg/dLLow1.9-2.7[facility] Comment on above:Result Comment: PERFORMED BY: [address] [address] PATHOLOGIST MACHINE RUG CLEANER LE MACE M.D.Performed By: #### CMP, MG, PHOS, CBC #### [place] [address] USAMagnesium [Mass/volume] in Serum or PlasmaOrdered By: Priscilla Lang on 18-42-2693Usskijdcf [Mass/Vol]Magnesium [Mass/volume] in Serum or PlasmaLow1.9-2.7FRegency Hospital Cleveland EastMonocytes Auto (Bld) [#/Vol] Ordered By: Priscilla Lang on 10-23-0796Bxvfvzprw (Bld) [#/Vol]Automated blood monocyte count0.0-0.8[facility] NorthMonocytes/100 WBC Auto (Bld)Ordered By: Priscilla Lang on 26-98-8183Jvwqpdwvu/100 WBC (Bld)Automated monocyte %.[facility] Hospital NorthNeutrophils Auto (Bld) [#/Vol] Ordered By: Priscilla Lang on 69-29-6436Qwedpdtrcnu (Bld) [#/Vol]Neutrophils [#/volume] in Blood by Automated count1.8-7.7FRegency Hospital Cleveland East Neutrophils/100 WBC Auto (Bld)Ordered By: Priscilla Lang on 04-30-2024 Neutrophils/100 WBC (Bld)Automated neutrophil %.[facility] NorthNo Panel InformationOrdered By: Priscilla Lang on 39-21-3116Brndvcoth GFR (CKD-EPI)> 60.0 mL/MinPremier Health Miami Valley Hospital NorthPharmacy Creatinine Clearance (Chem82.38[facility] NorthNucleated erythrocytes [Presence] in Blood by Automated countOrdered By: Priscilla Lang on 04-30-2024 Nucleated RBC Auto Ql (Bld)Nucleated erythrocytes [Presence] in Blood by Automated count0-0.5FRegency Hospital Cleveland EastPhosphate [Mass/volume] in Serum or PlasmaOrdered By: Priscilla Lang on 87-20-5659Jekxborbx [Mass/Vol] Phosphate [Mass/volume] in Serum or Plasma2.5-4.5FRegency Hospital Cleveland EastPhosphoruson 07-50-1068Zpfjxqkvq [Mass/Vol]2.9 mg/dLNormal2.5-4.5The [facility] Health Physician GroupComment on above:Performed By: #### CMP, MG, PHOS, CBC #### [facility] [address] [place] [address] USAPlatelet mean volume Auto (Bld) [Entitic vol]Ordered By: Priscilla Lang on 66-97-7745Lnfcicvj mean volume (Bld) [Entitic vol]Platelet mean volume [Entitic volume] in Blood by Automated count6.3-10.7FRegency Hospital Cleveland EastPlatelets Auto (Bld) [#/Vol]Ordered By: Priscilla Lang on 34-34-6730Trebmqbch (Bld) [#/Vol]Platelets [#/volume] in Blood by Automated tldqzHka347-512GigpbteqiPremier Health Miami Valley Hospital NorthPotassium [Moles/volume] in Serum or PlasmaOrdered By: Priscilla Lang on 92-22-0559Fqfodshhh [Moles/Vol] Potassium [Moles/volume] in Serum or Plasma3.5-5.1FRegency Hospital Cleveland EastProtein [Mass/volume] in Serum or PlasmaOrdered By: Priscilla Lang on 73-64-7302Ftzyhut [Mass/Vol]Protein [Mass/volume] in Serum or Plasma6.4-8.9 [facility] NorthRBC Auto (Bld) [#/Vol]Ordered By: Priscilla Lang on 46-56-6461RQN (Bld) [#/Vol]Erythrocytes [#/volume] in Blood by Automated count3.60-5.00[facility] Cincinnatierum or plasma albumin/globulin mass ratioOrdered By: Priscilla Lang on 61-45-9220Broyfdw/Globulin [Mass ratio] Serum or plasma albumin/globulin mass ratioPremier Health Miami Valley Hospital North Serum or plasma anion gap determinationOrdered By: Priscilla Lang on 04-30-2024 Anion gap [Moles/Vol]Serum or plasma anion gap determination6.0-15.0[facility] Cincinnatiodium [Moles/volume] in Serum or PlasmaOrdered By: Priscilla Lang on 55-92-2074Bggrjr [Moles/Vol]Sodium [Moles/volume] in Serum or Plasma 136-145Prem[facility] Hospital NorthUrea nitrogen [Mass/volume] in Serum or PlasmaOrdered By: Priscilla Lang on 34-63-6943Wqfl nitrogen [Mass/Vol]Urea nitrogen [Mass/volume] in Serum or Plasma7-25[facility] WBC Auto (Bld) [#/Vol]Ordered By: Priscilla Lang on 71-70-1703BFY (Bld) [#/Vol] Leukocytes [#/volume] in Blood by Automated count3.8-11.6FRegency Hospital Cleveland EastAmphetamine Screen Ql (U)Ordered By: Priscilla Lang on 04-29-2024 Amphetamines Ql (U)Amphetamines screenNegativePremier Health Miami [facility] Hospital North Barbiturates [Presence] in Urine by Screen methodOrdered By: Priscilla Lang on 75-97-5323Xxkbdrkfstkn Screen Ql (U)Barbiturates [Presence] in Urine by Screen methodNegativePremier Health Miami Valley Hospital NorthBasic Metabolic Panelon 71-51-4575Eskoa gap [Moles/Vol]11.3 mmol/LNormal6.0-15.0The [facility] Health Physician GroupComment on above:Order Comment: FASTING NPerformed By: #### CMP, MG, PHOS, CBC #### [facility] [address] [place] [address] USACalcium [Mass/Vol]8.9 mg/dLNormal8.6-10.3The [facility] Health Physician GroupComment on above:Order Comment: FASTING NPerformed By: #### CMP, MG, PHOS, CBC #### [facility] [address] [place] [id number] USAChloride [Moles/Vol]106 mmol/RGmhwci89-091Xta [facility] Physician GroupComment on above:Order Comment: FASTING NPerformed By: #### CMP, MG, PHOS, CBC #### [facility] [address] [place] [id number] USACO2 [Moles/Vol]25.2 mmol/GCxkils61.0-31.0The [facility] Physician GroupComment on above:Order Comment: FASTING NPerformed By: #### CMP, MG, PHOS, CBC #### [facility] [address] [place] [address] USACreatinine [Mass/Vol]0.85 mg/dLNormal0.60-1.20The [facility] Health Physician GroupComment on above:Order Comment: FASTING NPerformed By: #### CMP, MG, PHOS, CBC #### [facility] [address] [place] [address] USACreatinine Clr Calc Fajlaokj68.21NormalThe Atrium Health Physician GroupComment on above:Order Comment: FASTING NPerformed By: #### CMP, MG, PHOS, CBC #### [facility] [address] [place] [address] USAGFR/1.73 sq M.predicted MDRD (S/P/Bld) [Vol rate/Area] mL/min/{1.73_m2}NormalThe Atrium Health Physician GroupComment on above:Order Comment: FASTING NPerformed By: #### CMP, MG, PHOS, CBC #### [place] [address] USAGlucose [Mass/Vol]206 mg/cICeaj19-164Ynf [facility] Physician GroupComment on above:Order Comment: FASTING NResult Comment: Random Glucose Reference Range is dependent on time and content of last meal. Glucose of more than 200 mg/dL in a nonstressed, ambulatory subject supports the diagnosis of Diabetes Mellitus. ADA recommended reference rangePerformed By: #### CMP, MG, PHOS, CBC #### [place] [address] USAPotassium [Moles/Vol]3.5 mmol/LNormal3.5-5.1The [facility] Health Physician GroupComment on above:Order Comment: FASTING NPerformed By: #### CMP, MG, PHOS, CBC #### [place] [address] USASodium [Moles/Vol]139 mmol/XCwjfqz356-219Umk [facility] Physician GroupComment on above:Order Comment: FASTING NPerformed By: #### CMP, MG, PHOS, CBC #### [place] [address] USAUrea nitrogen [Mass/Vol]9 mg/dLNormal7-e [facility] Physician GroupComment on above:Order Comment: FASTING NPerformed By: #### CMP, MG, PHOS, CBC #### [facility] [address] [place] [address] USABenzodiazepines Screen Ql (U)Ordered By: Priscilla Lang on 32-25-1900Avahppygxfotkii Ql (U)Benzodiazepines [Presence] in Urine by Screen methodNegativePremier Health Miami Valley Hospital NorthBenzoylecgonine [Presence] in Urine by Screen methodOrdered By: Priscilla Lang on 84-25-0143Jpsxmqpsuqmkcfb Screen Ql (U)Benzoylecgonine [Presence] in Urine by Screen methodNegative [facility] NorthCannabinoids [Presence] in Urine by Screen methodOrdered By: Priscilla Lang on 63-30-8678Pdvnbbbkhmfu Screen Ql (U) Cannabinoids [Presence] in Urine by Screen methodNegativePremier Health Miami Valley Hospital NorthComment on above:These are unconfirmed results and should not be used for legal purposes. Drug Cut-Off Concentration: AMPH 1000 ng/mL KENDRICK 200 ng/mL HEATHER 200 ng/mL COCM 300 ng/mL OP 300 ng/mL PCP 25 ng/mL THC 20 ng/mL Cholesterol [Mass/volume] in Serum or PlasmaOrdered By: Jori Hearn on 69-19-8721Uckuupnqtfl [Mass/Vol]Cholesterol [Mass/volume] in Serum or PlasmaLow 140-200Prem[facility] Hospital NorthComment on above:Chol less than 200 mg/dl low riskChol 201-239 mg/dl borderline riskChol 240 mg/dl and greater high riskCholesterol in HDL [Mass/volume] in Serum or PlasmaOrdered By: Jori Hearn on 03-42-5991Ambcibpcmji in HDL [Mass/Vol]Serum or plasma high density lipoprotein (HDL) cholesterol ufeznrbazkf06-35GcolzctfePremier Health Miami Valley Hospital North Comment on above:HDL CHOL ATP-III CLASSIFICATION Cardiovascular RiskHDL > or equal to 60 mg/dL LOWHDL < 40 mg/dL HIGHCholesterol in LDL Calc [Mass/Vol] Ordered By: Jori Hearn on 44-45-8983Natidwjabzn in LDL [Mass/Vol]Cholesterol in LDL [Mass/volume] in Serum or Plasma by calculationPremier Health Miami Valley Hospital NorthComment on above:LDL ATP III CLASSIFICATIONLDL less than 100 mg/dL OptimalLDL 100-129 mg/dL Near or above vzjrklkGRY030-671 mg/dL Borderline highLDL 160-189 mg/dL HighLDL greater than 189 mg/dL Very highCholesterol in VLDL Calc [Mass/Vol]Ordered By: Jori Hearn on 52-64-6822Ypocutnuomb in VLDL [Mass/Vol]Cholesterol in VLDL [Mass/volume] in Serum or Plasma by calculation [facility] NorthDrug Screen,Urineon 35-34-6081Tisirwoawzf Screen,UrineNegativeNormalNegativeThe [facility] Health Physician GroupComment on above: Performed By: #### CMP, MG, PHOS, CBC #### [place] [address] USABarbiturate Screen,UrineNegativeNormalNegativeThe [facility] Health Physician GroupComment on above:Performed By: #### CMP, MG, PHOS, CBC #### [facility] [address] [place] [address] USABenzodiazepines Screen,UrineNegativeNormalNegativeThe [facility] Health Physician GroupComment on above:Performed By: #### CMP, MG, PHOS, CBC #### [place] [address] USACannabinoid Screen,UrineNegativeNormalNegativeThe [facility] Health Physician GroupComment on above:Result Comment: These are unconfirmed results and should not be used for legal purposes. Drug Cut-Off Concentration: AMPH 1000 ng/mL KENDRICK 200 ng/mL HEATHER 200 ng/mL COCM 300 ng/mL OP 300 ng/mL PCP 25 ng/mL THC 20 ng/mL PERFORMED BY: [place] [address] PATHOLOGIST MACHINE RUG CLEANER LE MACE M.D.Performed By: #### CMP, MG, PHOS, CBC #### [place] [id number] USACocaine Screen,UrineNegativeNormalNegativeThe [facility] Health Physician GroupComment on above:Performed By: #### CMP, MG, PHOS, CBC #### [place] [address] USAOpiate Screen,UrineNegativeNormalNegativeThe [facility] Health Physician GroupComment on above:Performed By: #### CMP, MG, PHOS, CBC #### [facility] [address] [place] [address] USAPhencyclidine Screen,UrineNegativeNormalNegativeThe [facility] Health Physician GroupComment on above:Performed By: #### CMP, MG, PHOS, CBC #### [place] [address] USAGlucose Poct Glucometerson 73-63-7266Yxvwcfx [Mass/Vol]165 mg/dLNoCape Fear Valley Hoke Hospital Physician GroupComment on above:Result Comment: Random Glucose Reference Range is dependent on time and content of last meal. Glucose of more than 200 mg/dL in a nonstressed, ambulatory subject supports the diagnosis of Diabetes Mellitus. PERFORMED BY: [place] [address] PATHOLOGIST MACHINE RUG CLEANER LE MACE M.D.Performed By: #### CMP, MG, PHOS, CBC #### [place] [address] ZGVRxakgwd5Mym5: Cleaned MeterNormWellington Regional Medical Center Physician GroupComment on above:Result Comment: PERFORMED BY: [place] [address] PATHOLOGIST MACHINE RUG CLEANER LE MACE M.D.Performed By: #### GLULS #### Point of Care testing ,Glucose [Mass/Vol]188 mg/dLOrlando VA Medical Center Physician GroupComment on above: Result Comment: Random Glucose Reference Range is dependent on time and content of last meal. Glucose of more than 200 mg/dL in a nonstressed, ambulatory subject supports the diagnosis of Diabetes Mellitus.Performed By: #### GLULS #### Point of Care testing ,Pknfvyd1Fwm5: Cleaned MeterNoCape Fear Valley Hoke Hospital Physician GroupComment on above: Result Comment: PERFORMED BY: [place] [address] PATHOLOGIST MACHINE RUG CLEANER LE MACE M.D.Performed By: #### CMP, MG, PHOS, CBC #### [place] [address] USAGlucose [Mass/Vol]192 mg/dLNoCape Fear Valley Hoke Hospital Physician GroupComment on above:Result Comment: Random Glucose Reference Range is dependent on time and content of last meal. Glucose of more than 200 mg/dL in a nonstressed, ambulatory subject supports the diagnosis of Diabetes Mellitus.Performed By: #### CMP, MG, PHOS, CBC #### [place] [address] USAGlucose [Mass/Vol]210 mg/dLNoCape Fear Valley Hoke Hospital Physician GroupComment on above:Result Comment: Random Glucose Reference Range is dependent on time and content of last meal. Glucose of more than 200 mg/dL in a nonstressed, ambulatory subject supports the diagnosis of Diabetes Mellitus. PERFORMED BY: [place] [address] PATHOLOGIST MACHINE RUG CLEANER LE MACE M.D.Performed By: #### CMP, MG, PHOS, CBC #### [place] [id number] USALipid Panelon 84-99-4993Bllrpsonrqr [Mass/Vol]106 mg/dLLow 140-200[facility] Physician GroupComment on above:Order Comment: FASTING N Result Comment: Chol less than 200 mg/dl low risk Chol 201-239 mg/dl borderline risk Chol 240 mg/dl and greater high riskPerformed By: #### CMP, MG, PHOS, CBC #### [place] [id number] USACholesterol in HDL [Mass/Vol]31 mg/bSHxxehj87-73[facility] Physician GroupComment on above:Order Comment: FASTING NResult Comment: HDL CHOL ATP-III CLASSIFICATION Cardiovascular Risk HDL > or equal to 60 mg/dL LOW HDL < 40 mg/dL HIGHPerformed By: #### CMP, MG, PHOS, CBC #### [facility] [address] [place] [address] USACholesterol.total/Cholesterol in HDL [Mass ratio]3.4 {ratio}Normal<5.0The [facility] Physician GroupComment on above:Order Comment: FASTING NResult Comment: PERFORMED BY: [place] [address] PATHOLOGIST MACHINE RUG CLEANER LE MACE M.D.Performed By: #### CMP, MG, PHOS, CBC #### [facility] [address] [place] [address] USALDL Cholesterol,Ksnctzjhgm11 mg/dLNormal0-100The [facility] Physician GroupComment on above:Order Comment: FASTING NResult Comment: LDL ATP III CLASSIFICATION LDL less than 100 mg/dL Optimal LDL 100-129 mg/dL Near or above optimal LDL 130-159 mg/dL Borderline high LDL 160-189 mg/dL High LDL greater than 189 mg/dL Very highPerformed By: #### CMP, MG, PHOS, CBC #### [address] [address] USATriglyceride w/Cqhsbt390 mg/dLHigh0-149The [facility] Health Physician GroupComment on above:Order Comment: FASTING NResult Comment: TRIG ATP III CLASSIFICATION TRIG less than 150 mg/dL Normal TRIG 150-199 mg/dL Borderline high TRIG 200-500 mg/dL High TRIG greater than 500 mg/dL Very high Standard traceable to the Center for Disease Conrtrol and Prevention (CDC) test method.Performed By: #### CMP, MG, PHOS, CBC #### [facility] [address] [place] [address] USAVLDL POMHMYAILIS39 mg/dLNormalThe [facility] Health Physician GroupComment on above:Order Comment: FASTING NPerformed By: #### CMP, MG, PHOS, CBC #### [facility] [address] [place] [address] USANo Panel InformationOrdered By: Priscilla Lang on 88-53-1398Ojeedng Glucose CommentGlu2: cleaned meterPremier Health Miami Valley Hospital NorthOpiates [Presence] in Urine by Screen methodOrdered By: Priscilla Lang on 35-78-0066Tjnxsqg Screen Ql (U)Opiates [Presence] in Urine by Screen method NegativePremier Health Miami Valley Hospital NorthPhencyclidine Screen Ql (U)Ordered By: Priscilla Lang on 86-98-2326Mnkhyqyzfssxf Ql (U)Phencyclidine [Presence] in Urine by Screen methodNegativeSelect Medical Specialty Hospital - Cincinnatierum or plasma total cholesterol/high density lipoprotein (HDL) cholesterol mass ratOrdered By: Jori Hearn on 52-20-3017Cyiaprwwvlq.total/Cholesterol in HDL [Mass ratio] Serum or plasma total cholesterol/high density lipoprotein (HDL) cholesterol mass rat<5.0Prem[facility] Hospital NorthTriglyceride [Mass/volume] in Serum or PlasmaOrdered By: Jori Hearn on 97-69-8468Svgsxnyukxax [Mass/Vol] Triglyceride [Mass/volume] in Serum or PlasmaHigh0-149Prem[facility] Hospital NorthComment on above:TRIG ATP III CLASSIFICATIONTRIG less than 150 mg/dL NormalTRIG 150-199 mg/dL Borderline highTRIG 200-500 mg/dL High TRIG greater than 500 mg/dL Very highStandard traceable to the Center for Disease Conrtrol and Prevention (CDC) test method.Urine Cultureon 94-23-9628Ktvqrdzd identified Cx Nom (U)15,000 colonies/ml mixed bacterial skin contaminants 2 Days PERFORMED BY: [facility] [address] [place] [address] PATHOLOGIST MACHINE RUG CLEANER LE MACE M.D.NormalThe [facility]rium Health Physician GroupComment on above: Performed By: #### CMP, MG, PHOS, CBC #### [facility] [address] [place] [address] USAUrine cultureOrdered By: Priscilla Lang on 04-29-2024 Bacteria identified Cx Nom (U)Urine culturePremier Health Miami Valley Hospital North Bacteria identified Cx Nom (U)Urine culturePremier Health Miami Valley Hospital North Alanine aminotransferase [Enzymatic activity/volume] in Serum or PlasmaOrdered By: Wesley Villafuerte on 34-63-3979LCZ [Catalytic activity/Vol]Alanine aminotransferase [Enzymatic activity/volume] in Serum or Plasma752Prem[facility] Hospital NorthAlbumin [Mass/volume] in Serum or Plasma by Bromocresol green (BCG) dye binding methoOrdered By: Wesley Villafuerte on 06-14-8232Uzrwawi BCG dye [Mass/Vol]Albumin [Mass/volume] in Serum or Plasma by Bromocresol green (BCG) dye binding metho3.5-5.7FRegency Hospital Cleveland EastAlkaline phosphatase [Enzymatic activity/volume] in Serum or PlasmaOrdered By: Wesley Villafuerte on 26-40-9663SMV [Catalytic activity/Vol]Alkaline phosphatase [Enzymatic activity/volume] in Serum or Fvrksi85-624GhdyobpcxPremier Health Miami Valley Hospital North Anisocytosis LM Ql (Bld)Ordered By: Wesley Villafuerte on 13-09-9377Cnlajnrvejvv Ql (Bld)Anisocytosis [Presence] in Blood by Light microscopyPremier Health Miami Valley Hospital NorthAppearance of UrineOrdered By: Wesley Villafuerte on 04-28-2024 Appearance (U)Urine appearanceCleSCCI Hospital LimaAspartate aminotransferase [Enzymatic activity/volume] in Serum or PlasmaOrdered By: Wesley Villafuerte on 69-46-2197IJG [Catalytic activity/Vol]Aspartate aminotransferase [Enzymatic activity/volume] in Serum or Nkpejz12-62FakhnvsbjPremier Health Miami Valley Hospital NorthB-Type Natriuretic Peptideon 89-98-0254Bncysmtwrpz peptide B (Bld) [Mass/Vol]25.0 pg/mLNormal5-100The [facility] Health Physician GroupComment on above: Result Comment: PERFORMED BY: [place] [address] PATHOLOGIST MACHINE RUG CLEANER LE MACE M.D.Performed By: #### CMP, MG, PHOS, CBC #### [place] [address] USABacteria [Presence] in Urine by AutomatedOrdered By: Wesley Villafuerte on 48-72-3104Thcvgaqj Auto Ql (U)Bacteria [Presence] in Urine by AutomatedNone SeenPremier Health Miami Valley Hospital NorthBasophils Auto (Bld) [#/Vol] Ordered By: Wesley Villafuerte on 34-28-8209Rlygjywiy (Bld) [#/Vol]Automated basophil count0.0-0.2FRegency Hospital Cleveland EastBasophils/100 WBC Auto (Bld)Ordered By: Wesley Villafuerte on 42-74-5530Jmusbjsxx/100 WBC (Bld)Automated basophil %. [facility] Hospital NorthBilirubin Test strip Ql (U)Ordered By: Wesley Villafuerte on 39-87-2395Hwjjzizvq Ql (U)Bilirubin.total [Presence] in Urine by Test stripNegativePremier Health Miami Valley Hospital NorthBilirubin.total [Mass/volume] in Serum or PlasmaOrdered By: Wesley Villafuerte on 63-03-2286Lbndxtpuz [Mass/Vol] Bilirubin.total [Mass/volume] in Serum or Plasma0.3-1.0Prem[facility] NorthBioFire Not Detectedon 68-71-3455YsiZceq Not DetectedNot detected NormalNot DetecteThe [facility]rium Health Physician GroupComment on above:Result Comment: This is a duplicate RP2.1 COVID (PCR) result to be used for statistical tracking purpose only. PERFORMED BY: [place] [address] PATHOLOGIST MACHINE RUG CLEANER LE MACE M.D.Performed By: #### CMP, MG, PHOS, CBC #### [place] [address] USACOVID-19 Detected/Not DetectedOrdered By: Wesley Villafuerte on 93-05-4907HSHF-CoV-2 (COVID-19) RNA TEJINDER+non-probe Ql (Nph)Not detectedNot DetectGrant HospitalComment on above:This is a duplicate RP2.1 COVID (PCR) result to be used for statistical tracking purpose only.CT angio headon 77-03-1286UP angio headMARIETTA O[facility] [place] [address] [place] [address] CT Scan Report Signed Patient: Taye Gay MR#: [id number] 19 : 1955 Acct:[id number] Age/Sex: 68 / F ADM Date: 04/28/24 Loc: ER Room: Type: [facility] ER Attending Dr: Copies to: Wesley Villafuerte PA-C Ordering Provider: Wesley Villafuerte PA-C Date of Service: 04/28/24 CT/CT angio head: weakness ([id number]) CT/CT angio neck: weakness ([id number]) CT/CT head/brain wo con: weakness CT head/brain [...] Oz Bowling M.D.04/28/2024 9:44 PM Dictation Location: [place] [address] Transcribed By: [facility] 04/28/242143 Dictated By: Oz Bowling II, MD 04/28/242129 Signed By: 04/28/242143NoCape Fear Valley Hoke Hospital Physician GroupCalcium [Mass/volume] in Serum or PlasmaOrdered By: Wesley Villafuerte on 70-92-8028Tkndhnk [Mass/Vol]Calcium [Mass/volume] in Serum or Plasma8.6-10.3FRegency Hospital Cleveland EastCarbon dioxide, total [Moles/volume] in Serum or PlasmaOrdered By: Wesley Villafuerte on 32-14-3002GH7 [Moles/Vol]Carbon dioxide, total [Moles/volume] in Serum or Plasma 21.0-31.0Prem[facility] NorthChloride [Moles/volume] in Serum or PlasmaOrdered By: Wesley Villafuerte on 47-24-0198Srzpvjck [Moles/Vol]Chloride [Moles/volume] in Serum or Mhjvgb94-521TqptlqvtoPremier Health Miami Valley Hospital NorthColor Auto (U)Ordered By: Wesley Villafuerte on 22-27-6121Hgjye (U)Color of Urine by Auto YellowPremier Health Miami Valley Hospital NorthComprehensive Metabolic Panelon 80-22-3251Gfhgjsm [Mass/Vol]3.7 g/dLNormal3.5-5.7The [facility] Comment on above:Performed By: #### CMP, MG, PHOS, CBC #### [facility] [address] [place] [address] USAAlbumin/Globulin [Mass ratio]1.2 {ratio}NormalThe Atrium Health Physician GroupComment on above:Performed By: #### CMP, MG, PHOS, CBC #### [facility] [address] [place] [address] USAALP [Catalytic activity/Vol]86 U/OHruzcq29-503Lwk [facility] Physician GroupComment on above:Performed By: #### CMP, MG, PHOS, CBC #### [place] [address] USAALT [Catalytic activity/Vol]20 U/LNormal7-52The [facility] Physician GroupComment on above:Performed By: #### CMP, MG, PHOS, CBC #### [place] [address] USAAnion gap [Moles/Vol]12.7 mmol/LNormal6.0-15.0The [facility] Health Physician GroupComment on above:Performed By: #### CMP, MG, PHOS, CBC #### [place] [address] USAAST [Catalytic activity/Vol]25 U/KTgklnb90-34Rgv [facility] Physician GroupComment on above:Performed By: #### CMP, MG, PHOS, CBC #### [place] [address] USABilirubin [Mass/Vol]0.3 mg/dLNormal0.3-1.0The [facility] Physician GroupComment on above:Performed By: #### CMP, MG, PHOS, CBC #### [place] [address] USACalcium [Mass/Vol]9.7 mg/dLNormal8.6-10.3The [facility] Physician GroupComment on above:Performed By: #### CMP, MG, PHOS, CBC #### [place] [address] USAChloride [Moles/Vol]104 mmol/VAtzjpi36-480Yqq [facility] Physician GroupComment on above:Performed By: #### CMP, MG, PHOS, CBC #### [place] [address] USACO2 [Moles/Vol]24.2 mmol/PZucijz54.0-31.0The [facility] Physician GroupComment on above:Performed By: #### CMP, MG, PHOS, CBC #### [facility] [address] [place] [address] USACreatinine [Mass/Vol]0.85 mg/dLNormal0.60-1.20The [facility] Physician GroupComment on above:Performed By: #### CMP, MG, PHOS, CBC #### [facility] [address] [place] [address] USACreatinine Clr Calc Vuewkbpc60.21NormCincinnati Children's Hospital Medical Centere [facility] Physician GroupComment on above:Performed By: #### CMP, MG, PHOS, CBC #### [facility] [facility] [address] [place] [address] USAGFR/1.73 sq M.predicted MDRD (S/P/Bld) [Vol rate/Area] mL/min/{1.73_m2}NormalThe Atrium Health Physician GroupComment on above:Performed By: #### CMP, MG, PHOS, CBC #### [facility] [address] [place] [address] USAGlobulin (S) [Mass/Vol]3.1 g/dLNormCincinnati Children's Hospital Medical Centere Atrium Health Physician GroupComment on above:Performed By: #### CMP, MG, PHOS, CBC #### [facility] [address] [place] [address] USAGlucose [Mass/Vol]231 mg/vDLeez36-529Qts At[facility] Health Physician GroupComment on above:Result Comment: Random Glucose Reference Range is dependent on time and content of last meal. Glucose of more than 200 mg/dL in a nonstressed, ambulatory subject supports the diagnosis of Diabetes Mellitus. ADA recommended reference rangePerformed By: #### CMP, MG, PHOS, CBC #### [facility] [address] [place] [address] USAPotassium [Moles/Vol]3.9 mmol/LNormal3.5-5.1The Atrium Health Physician GroupComment on above:Result Comment: Hemolysis is present at a level that could interfere with the result. Contact lab if redraw is requiredPerformed By: #### CMP, MG, PHOS, CBC #### [facility] [address] [place] [address] USAProtein [Mass/Vol]6.8 g/dLNormal6.4-8.9The Atrium Health Physician GroupComment on above:Performed By: #### CMP, MG, PHOS, CBC #### [facility] [address] [place] [id number] USASodium [Moles/Vol]137 mmol/YCvzoyh463-484Ytt [facility] Health Physician GroupComment on above:Performed By: #### CMP, MG, PHOS, CBC #### [facility] [address] [place] [id number] USAUrea nitrogen [Mass/Vol]11 mg/dLNormal7-25The Atrium Health Physician GroupComment on above:Performed By: #### CMP, MG, PHOS, CBC #### [facility] [address] [place] [address] USACreatinine [Mass/volume] in Serum or PlasmaOrdered By: Wesley Villafuerte on 36-84-0638Rdzcorbhqb [Mass/Vol]Creatinine [Mass/volume] in Serum or Plasma0.60-1.20[facility] NorthDipstick and Microscopicon 42-08-7766Rpilbgldig (U)ClearNormalClearThe Atrium Health Physician GroupComment on above:Order Comment: Name Collection Type:: Clean-Voided MidstreamPerformed By: #### ADDONUAPLUS #### [place] [id number] USABacteria,UrineRareNormalNone SeenThe Atrium Health Physician GroupComment on above:Order Comment: Name Collection Type:: Clean-Voided MidstreamPerformed By: #### ADDONUAPLUS #### [facility] [address] [place], [place] [id number] USABilirubin,UrineNegativeNormalNegativeThe Atrium Health Physician GroupComment on above:Order Comment: Name Collection Type:: Clean- Voided MidstreamPerformed By: #### ADDONUAPLUS #### [facility] [address] [place], [place] [id number] USABudding Yeast,UrineRareHighNone SeenThe Atrium Health Physician GroupComment on above:Order Comment: Name Collection Type:: Clean- Voided MidstreamResult Comment: PERFORMED BY: [place] [address] PATHOLOGIST MACHINE RUG CLEANER LE MACE M.D.Performed By: #### ADDONUAPLUS #### [place] [address] USAColor (U)Light-YellowNormalYellowThe Atrium Health Physician GroupComment on above:Order Comment: Name Collection Type:: Clean-Voided MidstreamPerformed By: #### ADDONUAPLUS #### [place] [address] USAGlucose Ql (U)>=HighNormalThe [facility] Physician Group Comment on above:Order Comment: Name Collection Type:: Clean-Voided Midstream Performed By: #### ADDONUAPLUS #### [place] [address] USAHyaline Casts,Urine0 [LPF]Normal0-8The Atrium Health Physician GroupComment on above:Order Comment: Name Collection Type:: Clean-Voided MidstreamPerformed By: #### ADDONUAPLUS #### [place] [address] USAKetones Ql (U)NegativeNormalNegativeUniversity Of Miami Hospital Physician GroupComment on above:Order Comment: Name Collection Type:: Clean- Voided MidstreamPerformed By: #### ADDONUAPLUS #### [place] [id number] USALeukocyte esterase Test strip Ql (U)NegativeNormalNegative The Atrium Health Physician GroupComment on above:Order Comment: Name Collection Type:: Clean-Voided MidstreamPerformed By: #### ADDONUAPLUS #### [place] [address] USANitrite,UrineNegativeNormalNegativeUniversity Of Miami Hospital Physician GroupComment on above:Order Comment: Name Collection Type:: Clean-Voided MidstreamPerformed By: #### ADDONUAPLUS #### [place] [address] USAOccult Blood,Urine2+HighNegativeThe Atrium Health Physician GroupComment on above:Order Comment: Name Collection Type:: Clean-Voided MidstreamResult Comment: PERFORMED BY: [place] [address] PATHOLOGIST MACHINE RUG CLEANER LE MACE M.D.Performed By: #### ADDONUAPLUS #### [place] [address] USApH (U)5.5 [pH]Normal5.0-9.0The [facility] Comment on above:Order Comment: Name Collection Type:: Clean-Voided Midstream Performed By: #### ADDONUAPLUS #### [place] [address] USAProtein,UrineNegativeNormalNegativeThe Atrium Health Physician GroupComment on above:Order Comment: Name Collection Type:: Clean-Voided MidstreamPerformed By: #### ADDONUAPLUS #### [place] [address] USARBC,Urine10 [HPF]High0-4The [facility] Comment on above:Order Comment: Name Collection Type:: Clean-Voided Midstream Performed By: #### ADDONUAPLUS #### [place] [address] USASpecificy [place],Urine1.904Shet6.001-1.030The Atrium Health Physician GroupComment on above:Order Comment: Name Collection Type:: Clean- Voided MidstreamPerformed By: #### ADDONUAPLUS #### [place] [address] USASquamous Epithelial Cell,Urine3 [HPF]High0-2The At[facility] Health Physician GroupComment on above:Order Comment: Name Collection Type:: Clean- Voided MidstreamPerformed By: #### ADDONUAPLUS #### [place] [address] USAUrobilinogen,UrineNormalNormalNormalThe Atrium Health Physician GroupComment on above:Order Comment: Name Collection Type:: Clean- Voided MidstreamPerformed By: #### ADDONUAPLUS #### [facility] [address] [place] [address] USAWBC,Urine5 [HPF]High0-4The [facility] Comment on above:Order Comment: Name Collection Type:: Clean-Voided Midstream Performed By: #### ADDONUAPLUS #### [facility] [address] [place] [id number] USAECG 12 lead ECGon 52-84-4104JFN 12 lead ECGMARIETTA O[facility] [place] [address] [place] [address] Electrocardiograph Report Signed Patient: Taye Gay MR#: [id number] [birth year] : 1955 Acct:[id number] Age/Sex: 68 / F ADM Date: 04/28/24 Loc: Room: [address] [place] [address] Type: ADM IN Attending Dr: Jori Hearn [...] MUS Signed By Jori Batista MD 05/23 [facility]4NoCape Fear Valley [facility] Hospital Physician GroupEosinophils Auto (Bld) [#/Vol] Ordered By: Wesely Villafuerte on 06-91-8554Vndzrndmjji (Bld) [#/Vol]Automated eosinophil count0.0-0.45[facility] NorthEosinophils/100 WBC Auto (Bld)Ordered By: Wesley Villafuerte on 41-02-3341Mefsscycwwr/100 WBC (Bld) Automated eosinophil %.[facility] NorthEpithelial cells.squamous [#/area] in Urine sediment by Automated countOrdered By: Wesley Villafuerte on 68-99-9929Gokphnmhrr cells.squamous Auto (Urine sed) [#/Area]Epithelial cells.squamous [#/area] in Urine sediment by Automated countHigh0-2FRegency Hospital Cleveland EastErythrocyte distribution width Auto (RBC) [Ratio]Ordered By: Wesley Villafuerte on 14-50-2179Ukgklkxgeye distribution width (RBC) [Ratio] Erythrocyte distribution width [Ratio] by Automated pzcoePfik86.9-15.3FRegency Hospital Cleveland EastErythrocyte morphology finding [Identifier] in Blood Ordered By: Wesley Villafuerte on 43-24-0972HPL morphology finding Nom (Bld)RBC morphologyPremier Health Miami Valley Hospital NorthErythrocytes [#/area] in Urine sediment by Automated countOrdered By: Wesley Villafuerte on 19-28-7612VIO Auto (Urine sed) [#/Area]Erythrocytes [#/area] in Urine sediment by Automated countHigh0-4 [facility] NorthGlobulin Calc (S) [Mass/Vol]Ordered By: Wesley Villafuerte on 49-68-9880Kkhxadkz (S) [Mass/Vol]Serum globulin measurement by calculation (mass/volume)[facility] NorthGlucose [Mass/volume] in Serum or PlasmaOrdered By: Wesley Villafuerte on 85-14-6484Ildawxj [Mass/Vol] Glucose [Mass/volume] in Serum or IolxzxAjhc80-846NqglcrmqqPremier Health Miami Valley Hospital NorthComment on above:ADA recommended reference rangeRandom Glucose Reference Range is dependent on time and content of last meal. Glucose of more than 200 mg/dL in a nonstressed, ambulatory subject supports the diagnosisof Diabetes Mellitus.Glucose [Mass/volume] in Urine by Test stripOrdered By: Wesley Villafuerte on 23-05-4184Tsppqck Test strip (U) [Mass/Vol]Glucose [Mass/volume] in Urine by Test stripHighNormalPremier Health Miami Valley Hospital NorthHbA1c HPLC (Bld) [Mass fraction]on 01-47-5346YeI7f (Bld) [Mass fraction]Hemoglobin A1c/Hemoglobin.total in Blood by HPLCPremier Health Miami Valley Hospital NorthHematocrit Auto (Bld) [Volume fraction]Ordered By: Wesley Villafuerte on 48-97-6363Mlqtfmtpss (Bld) [Volume fraction]Hematocrit [Volume Fraction] of Blood by Automated ikjziEhsv07.0-46.4 [facility] NorthHemoglobin Test strip Ql (U)Ordered By: Wesley Villafuerte on 70-23-1911Hckjpmewig Ql (U)Hemoglobin [Presence] in Urine by Test strip HighNegSelect Medical Specialty Hospital - AkronHemoglobin [Mass/volume] in Blood Ordered By: Wesley Villafuerte on 13-62-8797Cnnblkfwwh (Bld) [Mass/Vol]Hemoglobin [Mass/volume] in BtwuuMdrm82.8-15.4FRegency Hospital Cleveland EastHyaline casts [#/area] in Urine sediment by Automated countOrdered By: Wesley Villafuerte on 79-69-4186Ntomtbo casts Auto (Urine sed) [#/Area]Hyaline casts [#/area] in Urine sediment by Automated count0-8[facility] NorthINR in Platelet poor plasma by Coagulation assayOrdered By: Wesley Villafuerte on 70-58-7632VNQ Coag (PPP) [Relative time]INR in Platelet poor plasma by Coagulation assayPremier Health Miami Valley Hospital NorthComment on above:INR Therapeutic Range A) Pre- and Peroperative OAT started two weeks before surgery. NOT HIP SURGERY: 1.5 - 2.5 HIP SURGERY: 2 - 3B) Primary and secondary prevention of venous THROMBOSIS: 2 - 3C) Active venous thrombosis, pulmonary embolismand prevention of recurrent venous thrombosis: 2 - 3D) Prevention of arterial thromboembolismincluding patients with mechanical heart valves: 3 - 4.5Ketones Test strip Ql (U)Ordered By: Wesley Villafuerte on 62-78-5682Qqzywyg Ql (U)Ketones [Presence] in Urine by Test stripNegSelect Medical Specialty Hospital - AkronLeukocyte esterase [Presence] in Urine by Test stripOrdered By: Wesley Villafuerte on 15-60-0309Wtceeqqwz esterase Test strip Ql (U)Leukocyte esterase [Presence] in Urine by Test stripNegative [facility] NorthLeukocytes [#/area] in Urine sediment by Automated countOrdered By: Wesley Villafuerte on 79-59-0733ZYA Auto (Urine sed) [#/Area]Leukocytes [#/area] in Urine sediment by Automated countHigh0-4FRegency Hospital Cleveland EastLeukocytes [#/volume] corrected for nucleated erythrocytes in Blood by Automated counOrdered By: Wesley Villafuerte on 36-96-3192SIU corrected for nucl RBC Auto (Bld) [#/Vol]Leukocytes [#/volume] corrected for nucleated erythrocytes in Blood by Automated coun3.8-11.6FRegency Hospital Cleveland EastLymphocytes Auto (Bld) [#/Vol]Ordered By: Wesley Villafuerte on 69-94-9822Vtbvxdcackz (Bld) [#/Vol]Lymphocytes [#/volume] in Blood by Automated count1.00-4.8[facility] NorthLymphocytes/100 WBC Auto (Bld) Ordered By: Wesley Villafuerte on 09-36-2021Piitgtekybq/100 WBC (Bld)Lymphocytes/100 leukocytes in Blood by Automated count.[facility] Southeast OhioH Auto (RBC) [Entitic mass]Ordered By: Wesley Villafuerte on 60-61-3065QTQ (RBC) [Entitic mass]MCH [Entitic mass] by Automated count24.7-34.3FRegency Hospital Cleveland EastMCHC Auto (RBC) [Mass/Vol]Ordered By: Wesley Villafuerte on 17-41-1915WQVI (RBC) [Mass/Vol]MCHC [Mass/volume] by Automated count32.0-35.0[facility] NorthMCV Auto (RBC) [Entitic vol]Ordered By: Wesley Villafuerte on 04-28-2024 MCV (RBC) [Entitic vol]MCV [Entitic volume] by Automated ruuop16-582GykaiskxlPremier Health Miami Valley Hospital NorthMagnesiumon 50-43-1929Htyjvqfkp [Mass/Vol]1.7 mg/dLLow 1.9-2.7The Atrium Health Physician GroupComment on above:Result Comment: PERFORMED BY: [facility] [address] [place] [address] PATHOLOGIST MACHINE RUG CLEANER LE MACE M.D.Performed By: #### CMP, MG, PHOS, CBC #### [facility] [address] [place] [address] USAMagnesium [Mass/volume] in Serum or PlasmaOrdered By: Wesley Villafuerte on 15-29-6721Pbsyyichs [Mass/Vol]Magnesium [Mass/volume] in Serum or PlasmaLow1.9-2.7FRegency Hospital Cleveland EastMonocyte distribution width [Entitic volume] in Blood by AutomatedOrdered By: Wesley Villafuerte on 04-28-2024 Monocyte distribution width Auto (Bld) [Entitic vol]Monocyte distribution width [Entitic volume] in Blood by AutomatedHigh0.00-20.00[facility] NorthComment on above:For adults in ED, MDW > 20.0 may be associated with a higher risk of sepsis during the first 12 hrs of hospital admissionMonocytes Auto (Bld) [#/Vol]Ordered By: Wesley Villafuerte on 69-47-8538Ihsupjbyb (Bld) [#/Vol] Automated blood monocyte count0.0-0.8[facility] Monocytes/100 WBC Auto (Bld)Ordered By: Wesley Villafuerte on 00-67-9001Kirxpfthy/100 WBC (Bld)Automated monocyte %.[facility] Hospital NorthNatriuretic peptide B [Mass/Vol]Ordered By: Wesley Villafuerte on 47-60-7669Djpitubwqti peptide B (Bld) [Mass/Vol]BNP ser/plas5-100Prem[facility] NorthNeutrophils Auto (Bld) [#/Vol]Ordered By: Wesley Villafuerte on 46-31-2404Jwljsdlgipn (Bld) [#/Vol]Neutrophils [#/volume] in Blood by Automated count1.8-7.7FRegency Hospital Cleveland EastNeutrophils/100 WBC Auto (Bld)Ordered By: Wesley Villafuerte on 57-79-3182Zsjynnmbzug/100 WBC (Bld)Automated neutrophil %.[facility] NorthNitrite Test strip Ql (U)Ordered By: Wesley Villafuerte on 04-28-2024 Nitrite Ql (U)Nitrite [Presence] in Urine by Test stripNegativePremier Health Miami Valley Hospital NorthNo Panel InformationOrdered By: Wesley Villafuerte on 37-78-3941Vvuiwoihs GFR (CKD-EPI)> 60.0 mL/MinPremier Health Miami Valley Hospital North Pharmacy Creatinine Clearance (Chem77.21[facility] NorthNo Panel Informationon 60-50-0686Qabmwqx Fvnsxsr940IbaplxhriPremier Health Miami Valley Hospital NorthNucleated erythrocytes [Presence] in Blood by Automated countOrdered By: Wesley Villafuerte on 77-04-8134Wttrgzxhw RBC Auto Ql (Bld)Nucleated erythrocytes [Presence] in Blood by Automated count0-0.5FRegency Hospital Cleveland East Partial Thromboplastin Timeon 11-14-7211wGSF Coag (Bld) [Time]30.0 sNormal 25.1-36.5The Atrium Health Physician GroupComment on above:Result Comment: A hematocrit value greater than 55% may lead to inaccurate results in coagulation testing. Patients having hematocrit values >55% require a special collection tube for coagulation studies. Please contact the laboratory at [phone] for redraw instructions. PERFORMED BY: [place] [address] PATHOLOGIST MACHINE RUG CLEANER LE MACE M.D.Performed By: #### CMP, MG, PHOS, CBC #### [place] [address] USAPlatelet adequacy [Presence] in Blood by Light microscopy Ordered By: Wesley Villafuerte on 65-28-9434Xchurfulo LM Ql (Bld)Platelet adequacy [Presence] in Blood by Light microscopyNoKettering Memorial Hospital Platelet mean volume Auto (Bld) [Entitic vol]Ordered By: Wesley Villafuerte on 82-76-9627Tbqvowqy mean volume (Bld) [Entitic vol]Platelet mean volume [Entitic volume] in Blood by Automated count6.3-10.7FRegency Hospital Cleveland East Platelet morphology finding [Identifier] in BloodOrdered By: Wesley Villafuerte on 92-67-0407Oemdfzmn morphology finding Nom (Bld)Platelet morphology finding [Identifier] in BloodNoKettering Memorial HospitalPlatelets Auto (Bld) [#/Vol]Ordered By: Wesley Villafuerte on 92-67-1863Loklcwshm (Bld) [#/Vol]Platelets [#/volume] in Blood by Automated axdycGym176-313BvkdtqdhnPremier Health Miami Valley Hospital NorthPolychromasia [Presence] in Blood by Light microscopyOrdered By: Wesley Villafuerte on 39-23-8776Dzoybtovonqab LM Ql (Bld)Polychromasia [Presence] in Blood by Light microscopyPremier Health Miami Valley Hospital NorthPotassium [Moles/volume] in Serum or PlasmaOrdered By: Wesley Villafuerte on 61-11-5517Wdaifmsyk [Moles/Vol] Potassium [Moles/volume] in Serum or Plasma3.5-5.1FRegency Hospital Cleveland EastComment on above:Hemolysis is present at a level that could interfere with the result.Contact lab if redraw is requiredProtein Test strip (U) [Mass/Vol] Ordered By: Wesley Villafuerte on 87-36-6729Kzzpout (U) [Mass/Vol]Protein [Mass/volume] in Urine by Test stripNegativePremier Health Miami Valley Hospital North Protein [Mass/volume] in Serum or PlasmaOrdered By: Wesley Villafuerte on 04-28-2024 Protein [Mass/Vol]Protein [Mass/volume] in Serum or Plasma6.4-8.9[facility] NorthProthrombin Time INRon 66-46-6830FOH Coag (PPP) [Relative time]1.3 {INR}NormalThe Atrium Health Physician GroupComment on above:Result Comment: INR Therapeutic Range A) Pre- and [...] patients with mechanical heart valves: 3 - 4.5Performed By: #### CMP, MG, PHOS, CBC #### [facility] [address] [place] [address] USAPT Coag (PPP) [Time]15.1 sHigh9.0-12.9The Atrium Health Physician GroupComment on above:Result Comment: A hematocrit value greater than 55% may lead to inaccurate results in coagulation testing. Patients having hematocrit values >55% require a special collection tube for coagulation studies. Please contact the laboratory at [phone] for redraw instructions.Performed By: #### CMP, MG, PHOS, CBC #### [facility] [address] [place] [address] USAProthrombin time (PT)Ordered By: Wesley Villafuerte on 95-74-3021VI Coag (PPP) [Time]Prothrombin time (PT)High9.0-12.9[facility] Hospital NorthComment on above:A hematocrit value greater than 55% may lead to inaccurate results in coagulation testing. Patientshaving hematocrit values >55% require a special collection tube for coagulation studies. Please c ontact the laboratory at [phone] for redraw instructions.RBC Auto (Bld) [#/Vol]Ordered By: Wesley Villafuerte on 34-12-3497VKF (Bld) [#/Vol]Erythrocytes [#/volume] in Blood by Automated countHigh3.60-5.00[facility] NorthRespiratory (Upper) Panel, PCRon 08-62-2921Ccwlzgjepqi (Upper) Panel, PCR Adenovirus Not detected Bordetella [...] Influenza A H3 Blank Space PERFORMED BY: [facility] [address] PATHOLOGIST MACHINE RUG CLEANER LE MACE M.D.[facility] Physician GroupComment on above: Performed By: #### CMP, MG, PHOS, CBC #### [facility] [address] [place] [address] USARespiratory pathogens DNA and RNA panel - Nasopharynx by TEJINDER with non-probe detectionOrdered By: Wesley Villafuerte on 48-82-8634Czjfggtrlbs pathogens DNA and RNA panel TEJINDER+non-probe (Nph)Respiratory pathogens DNA and RNA panel - Nasopharynx by TEJINDER with non-probe detectionPremier Health Miami Valley Hospital NorthRespiratory pathogens DNA and RNA panel TEJINDER+non-probe (Nph)Respiratory pathogens DNA and RNA panel - Nasopharynx by TEJINDER with non-probe detection [facility]atican and CBCon 22-49-9852Qtumcaptrhwo Ql (Bld) SlightNormalThe Atrium Health Physician GroupComment on above:Performed By: #### CMP, MG, PHOS, CBC #### [facility] [address] [place] [address] USABasophils (Bld) [#/Vol]0.1 10*3/uLNormal0.0-0.2The [facility] Health Physician GroupComment on above:Performed By: #### CMP, MG, PHOS, CBC #### [facility] [address] [place] [address] USABasophils/100 WBC (Bld)1.1 %Normal.The [facility] Health Physician GroupComment on above:Performed By: #### CMP, MG, PHOS, CBC #### [facility] [address] [place] [address] USAEosinophils (Bld) [#/Vol]0.3 10*3/uLNormal0.0-0.45The [facility] Health Physician GroupComment on above:Performed By: #### CMP, MG, PHOS, CBC #### [facility] [address] [place] [id number] USAEosinophils/100 WBC (Bld)2.7 %Normal.The [facility] Health Physician GroupComment on above:Performed By: #### CMP, MG, PHOS, CBC #### [facility] [address] [place] [address] USAErythrocyte distribution width (RBC) [Ratio]15.4 %High 11.9-15.3The [facility] Health Physician GroupComment on above:Performed By: #### CMP, MG, PHOS, CBC #### [place] [address] USAHematocrit (Bld) [Volume fraction]48.1 %High34.0-46.4The [facility] Health Physician GroupComment on above:Performed By: #### CMP, MG, PHOS, CBC #### [facility] [address] [place] [address] USAHemoglobin (Bld) [Mass/Vol]16.0 g/yCXdaf41.8-15.4The [facility] Health Physician GroupComment on above:Performed By: #### CMP, MG, PHOS, CBC #### [place] [address] USALymphocytes (Bld) [#/Vol]2.5 10*3/uLNormal1.00-4.8The [facility] Health Physician GroupComment on above:Performed By: #### CMP, MG, PHOS, CBC #### [facility] [address] [place] [address] USALymphocytes/100 WBC (Bld)24.6 %Normal.The [facility] Health Physician GroupComment on above:Performed By: #### CMP, MG, PHOS, CBC #### [facility] [address] [place] [address] USAMCH (RBC) [Entitic mass]31.7 vaBkveko19.7-34.3The [facility] Health Physician GroupComment on above:Performed By: #### CMP, MG, PHOS, CBC #### [facility] [address] [place] [address] USAMCV (RBC) [Entitic vol]95.1 uNZflpwk80-344Eul [facility] Physician GroupComment on above:Performed By: #### CMP, MG, PHOS, CBC #### [facility] [address] [place] [address] USAMean Corpuscular HGB Conc33.3 g/uPEtlktw57.0-35.0The [facility] Health Physician GroupComment on above:Performed By: #### CMP, MG, PHOS, CBC #### [place] [address] USAMonocytes (Bld) [#/Vol]0.8 10*3/uLNormal0.0-0.8The [facility] Health Physician GroupComment on above:Performed By: #### CMP, MG, PHOS, CBC #### [place] [address] USAMonocytes/100 WBC (Bld)20.25 %High0.00-20.00The [facility] Health Physician GroupComment on above:Result Comment: For adults in ED, MDW > 20.0 may be associated with a higher risk of sepsis during the first 12 hrs of hospital admissionPerformed By: #### CMP, MG, PHOS, CBC #### [facility] [address] [place] [address] USAMonocytes/100 WBC (Bld)7.6 %Normal.The [facility] Health Physician GroupComment on above:Performed By: #### CMP, MG, PHOS, CBC #### [place] [address] USANeutrophils (Bld) [#/Vol]6.5 10*3/uLNormal1.8-7.7The [facility] Health Physician GroupComment on above:Performed By: #### CMP, MG, PHOS, CBC #### [place] [address] USANeutrophils/100 WBC (Bld)64.0 %Normal.The [facility] Health Physician GroupComment on above:Performed By: #### CMP, MG, PHOS, CBC #### [place] [address] USANRBC%0.2 /100{WBC}Normal0-0.5The [facility] Comment on above:Performed By: #### CMP, MG, PHOS, CBC #### [place] [address] USAPlatelet EstimateDecreasedNormalNormalThe [facility]cu [facility] Ro[facility]Chow[facility] Hospitallands Physician GroupComment on above:Performed By: #### CMP, MG, PHOS, CBC #### [place] [address] USAPlatelet mean volume (Bld) [Entitic vol]9.9 fLNormal 6.3-10.7The [facility] Health Physician GroupComment on above:Performed By: #### CMP, MG, PHOS, CBC #### [place] [address] USAPlatelet MorphologyNormalNormHCA Florida Oak [facility] Hospital Physician GroupComment on above:Result Comment: PERFORMED BY: [place] [address] PATHOLOGIST MACHINE RUG CLEANER LE MACE M.D.Performed By: #### CMP, MG, PHOS, CBC #### [place] [address] USAPlatelets (Bld) [#/Vol]136 10*3/qOTsa943-061Kdc [facility] Physician GroupComment on above:Performed By: #### CMP, MG, PHOS, CBC #### [place] [address] USAPolychromasiaSlightOrlando VA Medical Center Physician Group Comment on above:Performed By: #### CMP, MG, PHOS, CBC #### [place] [address] USARBC (Bld) [#/Vol]5.06 10*6/uLHigh3.60-5.00The Atrium Health Physician GroupComment on above:Performed By: #### CMP, MG, PHOS, CBC #### [place] [address] USAWBC (Bld) [#/Vol]10.2 10*3/uLNormal3.8-11.6The Atrium Health Physician GroupComment on above:Performed By: #### CMP, MG, PHOS, CBC #### [place] [address] USAWBC (Bld) [#/Vol]10.9 10*3/uLNormal3.8-11.6The Atrium Health Physician GroupComment on above:Performed By: #### DOMINICK MG, PHOS, CBC #### [address] [address] USASerum or plasma albumin/globulin mass ratioOrdered By: Wesley Villafuerte on 81-97-2561Vpgrdja/Globulin [Mass ratio]Serum or plasma albumin/globulin mass ratioSelect Medical Specialty Hospital - Cincinnatierum or plasma anion gap determinationOrdered By: Wesley Villafuerte on 21-94-5487Jqlxa gap [Moles/Vol]Serum or plasma anion gap determination6.0-15.0[facility] - Cincinnatiodium [Moles/volume] in Serum or PlasmaOrdered By: Wesley Villafuerte on 62-18-3685Wcnjeh [Moles/Vol]Sodium [Moles/volume] in Serum or Aprnsz182-146 [facility] - Cincinnatipecific gravity Test strip (U) [Rel density] Ordered By: Wesley Villafuerte on 82-38-2085Txvwogvz gravity (U) [Rel density]Specific gravity of Urine by Test stripHigh1.001-1.030[facility] Troponin I High Sensitivityon 45-70-9026Yzzhbwua I High Sensitivity5.1 pg/mL Normal0.0-15.0The Atrium Health Physician GroupComment on above:Result Comment: PERFORMED BY: [place] [address] PATHOLOGIST MACHINE RUG CLEANER LE MACE M.D.Performed By: #### DOMINICK MG, PHOS, CBC #### [facility] [address] [place] [address] USATroponin I.cardiac [Mass/volume] in Serum or Plasma by Detection limit <= 0.01 ng/Ordered By: Wesley Villafuerte on 78-42-6543Siliwwkz I.cardiac DL <= 0.01 ng/mL [Mass/Vol]Troponin I.cardiac [Mass/volume] in Serum or Plasma by Detection limit <= 0.01 ng/0.0-15.0[facility] NorthUrea nitrogen [Mass/volume] in Serum or PlasmaOrdered By: Wesley Villafuerte on 55-11-3999Peqg nitrogen [Mass/Vol]Urea nitrogen [Mass/volume] in Serum or Plasma 11-20[facility] Hospital NorthUrobilinogen Test strip (U) [Mass/Vol] Ordered By: Wesley Villafuerte on 55-31-5794Qvnhkdjtosmf (U) [Mass/Vol]Urobilinogen [Mass/volume] in Urine by Test stripNormalPremier Health Miami Valley Hospital NorthWBC Auto (Bld) [#/Vol]Ordered By: Wesley Villafuerte on 78-62-2051UWT (Bld) [#/Vol] Leukocytes [#/volume] in Blood by Automated count3.8-11.6FRegency Hospital Cleveland EastX-ray reportOrdered By: Oz Bowling on 28-18-5338Bjgxz report [facility] [place] [address] XRay Report Signed Patient: Taye Gay MR#: [id number] : 1955 Acct:[id number] Age/Sex: 68 / F ADM Date: 4 Loc: ER Room: Type: [facility] ER Attending Dr: Copies to: Wesley [...] Bowling M.D.04/28/2024 9:46 PM Dictation Location: RADIO-PC-17 Transcribed By: AMY 04/28/242145 Dictated By: Oz Bowling II, MD 04/28/242143 Signed By: 04/28/242145 [facility] Work Phone: XR chest 2V*on 85-84-4314RN chest 2V*[facility] [place] [address] [place] [address] XRay Report Signed Patient: Taye Gay MR#: [id number] 19 : 1955 Acct:[id number] Age/Sex: 68 / F ADM Date: 04/28/24 Loc: ER Room: Type: [facility] ER Attending Dr: Copies to: Wesley Villafuerte PA-C Ordering Provider: Wesley Villfauerte PA-C Date of Service: 04/28/24 XR/XR chest [...] Bowling M.D.04/28/2024 9:46 PM Dictation Location: RADIO-PC-17 Transcribed By: AMY 04/28/242145 Dictated By: Oz Bowling II, MD 04/28/242143 Signed By: 04/28/242145NoCape Fear Valley Hoke Hospital Physician GroupYeast.budding [Presence] in Urine by Computer assisted methodOrdered By: Wesley Villafuerte on 04-28-2024 Yeast.budding Computer assisted Ql (U)Yeast.budding [Presence] in Urine by Computer assisted methodWayne HospitalaPTT in Platelet poor plasma by Coagulation assayOrdered By: Wesley Villafuerte on 04-28-2024 aPTT Coag (PPP) [Time]Activated partial thromboplastin time (aPTT) in platelet poor plasma by coagulation a25.1-36.5FRegency Hospital Cleveland EastComment on above:A hematocrit value greater than 55% may lead to inaccurate results in coagulation testing. Patientshaving hematocrit values >55% require a special collection tube for coagulation studies. Please contact the laboratory at [phone] for redraw instructions.pH Test strip (U)Ordered By: Wesley Villafuerte on 65-25-2305lO (U)pH of Urine by Test strip5.0-9.0[facility] Hospital NorthECG 12 lead ECGon 96-25-1089ZEZ 12 lead ECGMARIETTA [facility] [address] Electrocardiograph Report Signed Patient: Taye Gay MR#: [id number] [birth year] : 1955 Acct:[id number] Age/Sex: 68 / F ADM Date: 04/27/24 Loc: ER Room: Type: [facility] ER Attending Dr: Ordering Provider: Rl Villavicencio [...] By: MUS Signed By Rl Villavicencio DO 0219[facility] Physician GroupAlanine aminotransferase [Enzymatic activity/volume] in Serum or PlasmaOrdered By: Nataliya Jane on 87-59-5421NXA [Catalytic activity/Vol]Alanine aminotransferase [Enzymatic activity/volume] in Serum or Plasma-[facility] NorthAlbumin [Mass/volume] in Serum or Plasma by Bromocresol green (BCG) dye binding methoOrdered By: Nataliya Jane on 02-72-3698Wnwdfjq BCG dye [Mass/Vol]Albumin [Mass/volume] in Serum or Plasma by Bromocresol green (BCG) dye binding metho3.5-5.7FRegency Hospital Cleveland EastAlkaline phosphatase [Enzymatic activity/volume] in Serum or PlasmaOrdered By: Nataliya Jane on 78-54-9582BIB [Catalytic activity/Vol] Alkaline phosphatase [Enzymatic activity/volume] in Serum or Tpqblu98-391 [facility] NorthAspartate aminotransferase [Enzymatic activity/volume] in Serum or PlasmaOrdered By: Nataliya Jane on 69-11-2087VFK [Catalytic activity/Vol]Aspartate aminotransferase [Enzymatic activity/volume] in Serum or Xxatzd30-47DiygnntvsPremier Health Miami Valley Hospital NorthBilirubin.total [Mass/volume] in Serum or PlasmaOrdered By: Nataliya Jane on 24-52-1935Xshphfdbr [Mass/Vol]Bilirubin.total [Mass/volume] in Serum or Plasma0.3-1.0[facility] NorthCBC W Auto Differential panel (Bld)on 88-08-7849Gxuiazouz (Bld) [#/Vol]0.1 10*3/uL0.0 - 0.2 10*3/uLNOMS HealthcareBasophils/100 WBC Manual cnt (Syn fld)0.6 %.NOMS HealthcareEosinophils (Bld) [#/Vol]0.3 10*3/uL0.0 - 0.45 10*3/uLNOMS HealthcareEosinophils/100 WBC Manual cnt (Syn fld)2.6 %.NOMS HealthcareErythrocyte distribution width (RBC) [Ratio]15 %11.9 - 15.3 %NOMS HealthcareHematocrit (Bld) [Volume fraction]49.7 %High34.0 - 46.4 %NOMS HealthcareHemoglobin (Bld) [Mass/Vol]16.6 g/pGFoec23.8 - 15.4 g/dLNOFL HealthcareInterpretation and review of laboratory resultsAbnormalNOFL Healthcare Lymphocytes (Bld) [#/Vol]2.1 10*3/uL1.00 - 4.8 10*3/uLNOMS Healthcare Lymphocytes/100 WBC Manual cnt (Syn fld)19.3 %.[facility] Blue SpringsH (RBC) [Entitic mass]31.2 pg24.7 - 34.3 pgNOHeartland Behavioral Health ServicesHC (RBC) [Mass/Vol]33.4 g/dL32.0 - 35.0 g/dLSaint Mary's Hospital of Blue SpringsV (RBC) [Entitic vol]93.4 fL80 - 100 fLHIGHLAND RIDGE HOSPITAL Healthcare Monocytes (Bld) [#/Vol]0.9 10*3/uLHigh0.0 - 0.8 10*3/uLNOMS Healthcare Monocytes+Macrophages/100 WBC Manual cnt (Syn fld)8.7 %.[facility] Neutrophils (Bld) [#/Vol]7.3 10*3/uL1.8 - 7.7 10*3/uLNOMS Healthcare Neutrophils/100 WBC Manual cnt (Syn fld)68.8 %.[facility] HealthcareNRBC0.1 /100{WBC}0 - 0.5 /100{WBC}[facility] HealthcarePlatelet mean volume (Bld) [Entitic vol]8.9 fL6.3 - 10.7 fLHIGHLAND RIDGE HOSPITAL HealthcarePlatelets (Bld) [#/Vol]167 10*3/uL150 - 450 10*3/uLNOMS Kettering Memorial HospitalRBC LM.HPF (Urine sed) [#/Area]5.32 10*6/uLHigh3.60 - 5.00 10*6/uLNOMS HealthcareWBC (Bld) [#/Vol]10.7 10*3/uL3.8 - 11.6 10*3/uLNOMS HealthcareWBC LM.HPF (Urine sed) [#/Area]10.7 10*3/uL3.8 - 11.6 10*3/uLNOMS [facility] Memorial HospitalNOFL HealthcareCalcium [Mass/volume] in Serum or PlasmaOrdered By: Nataliya Jane on 76-35-3368Umxmbme [Mass/Vol]Calcium [Mass/volume] in Serum or Plasma8.6-10.3 [facility] NorthCarbon dioxide, total [Moles/volume] in Serum or PlasmaOrdered By: Nataliya Jane on 09-96-5773ZY4 [Moles/Vol]Carbon dioxide, total [Moles/volume] in Serum or Lvgmci41.0-31.0[facility] NorthChloride [Moles/volume] in Serum or PlasmaOrdered By: Nataliya Jane on 99-95-1409Seugnotw [Moles/Vol]Chloride [Moles/volume] in Serum or Oyjagp23-053 [facility] NorthComplete Blood Count Auto Diffon 04-14-2024 Basophils (Bld) [#/Vol]0.1 10*3/uLNormal0.0-0.2[facility] Comment on above:Result Comment: PERFORMED BY: [place] [address] PATHOLOGIST MACHINE RUG CLEANER LE MACE M.D.Performed By: #### CMP, LDH, PATH SLIDE REV, CBC #### [facility] [address] [place] [address] USABasophils/100 WBC (Bld)0.6 %Normal.The Atrium Health Physician GroupComment on above:Performed By: #### CMP, LDH, PATH SLIDE REV, CBC #### [facility] [address] [place] [address] USAEosinophils (Bld) [#/Vol]0.3 10*3/uLNormal0.0-0.45The At[facility] Health Physician GroupComment on above:Performed By: #### CMP, LDH, PATH SLIDE REV, CBC #### [facility] [address] [place] [address] USAEosinophils/100 WBC (Bld)2.6 %Normal.The [facility] Health Physician GroupComment on above:Performed By: #### CMP, LDH, PATH SLIDE REV, CBC #### [facility] [address] [place] [address] USAErythrocyte distribution width (RBC) [Ratio]15.0 %Normal 11.9-15.3The At[facility] Health Physician GroupComment on above:Performed By: #### CMP, LDH, PATH SLIDE REV, CBC #### [place] [address] USAHematocrit (Bld) [Volume fraction]49.7 %High34.0-46.4The At[facility] Health Physician GroupComment on above:Performed By: #### CMP, LDH, PATH SLIDE REV, CBC #### [place] [address] USAHemoglobin (Bld) [Mass/Vol]16.6 g/zVDaez56.8-15.4The [facility] Health Physician GroupComment on above:Performed By: #### CMP, LDH, PATH SLIDE REV, CBC #### [place] [address] USALymphocytes (Bld) [#/Vol]2.1 10*3/uLNormal1.00-4.8The Atrium Health Physician GroupComment on above:Performed By: #### CMP, LDH, PATH SLIDE REV, CBC #### [place] [address] USALymphocytes/100 WBC (Bld)19.3 %Normal.The At[facility] Health Physician GroupComment on above:Performed By: #### CMP, LDH, PATH SLIDE REV, CBC #### [place] [address] USAMCH (RBC) [Entitic mass]31.2 pcNpjqgq24.7-34.3The At[facility] Health Physician GroupComment on above:Performed By: #### CMP, LDH, PATH SLIDE REV, CBC #### [place] [address] USAMCV (RBC) [Entitic vol]93.4 gIIuggug01-618Mjz At[facility] Health Physician GroupComment on above:Performed By: #### CMP, LDH, PATH SLIDE REV, CBC #### [place] [address] USAMean Corpuscular HGB Conc33.4 g/kPNuxcuc25.0-35.0The At[facility] Health Physician GroupComment on above:Performed By: #### CMP, LDH, PATH SLIDE REV, CBC #### [place] [address] USAMonocytes (Bld) [#/Vol]0.9 10*3/uLHigh0.0-0.8The At[facility] Health Physician GroupComment on above:Performed By: #### CMP, LDH, PATH SLIDE REV, CBC #### [place] [address] USAMonocytes/100 WBC (Bld)8.7 %Normal.The [facility] Health Physician GroupComment on above:Performed By: #### CMP, LDH, PATH SLIDE REV, CBC #### [place] [address] USANeutrophils (Bld) [#/Vol]7.3 10*3/uLNormal1.8-7.7The At[facility] Health Physician GroupComment on above:Performed By: #### CMP, LDH, PATH SLIDE REV, CBC #### [place] [address] USANeutrophils/100 WBC (Bld)68.8 %Normal.The At[facility] Health Physician GroupComment on above:Performed By: #### CMP, LDH, PATH SLIDE REV, CBC #### [place] [address] USANRBC%0.1 /100{WBC}Normal0-0.5[facility] Comment on above:Performed By: #### CMP, LDH, PATH SLIDE REV, CBC #### [place] [address] USAPlatelet mean volume (Bld) [Entitic vol]8.9 fLNormal 6.3-10.7The At[facility] Health Physician GroupComment on above:Performed By: #### CMP, LDH, PATH SLIDE REV, CBC #### [place] [address] USAPlatelets (Bld) [#/Vol]167 10*3/jGYbzzcl978-404Xlp At[facility] Health Physician GroupComment on above:Performed By: #### CMP, LDH, PATH SLIDE REV, CBC #### [place] [address] USARBC (Bld) [#/Vol]5.32 10*6/uLHigh3.60-5.00The [facility] Health Physician GroupComment on above:Performed By: #### CMP, LDH, PATH SLIDE REV, CBC #### [facility] [address] [place] [address] USAWBC (Bld) [#/Vol]10.7 10*3/uLNormal3.8-11.6The At[facility] Health Physician GroupComment on above:Performed By: #### CMP, LDH, PATH SLIDE REV, CBC #### [facility] [address] [place] [address] USAComprehensive Metabolic Panelon 25-10-5478Thticgh [Mass/Vol]4.1 g/dLNormal3.5-5.7The Atrium Health Physician GroupComment on above: Performed By: #### CMP, LDH, PATH SLIDE REV, CBC #### [place] [address] USAAlbumin/Globulin [Mass ratio]1.2 {ratio}NormalThe Atrium Health Physician GroupComment on above:Performed By: #### CMP, LDH, PATH SLIDE REV, CBC #### [place] [address] USAALP [Catalytic activity/Vol]92 U/ZYuefcc18-714Bhj [facility] Health Physician GroupComment on above:Performed By: #### CMP, LDH, PATH SLIDE REV, CBC #### [place] [address] USAALT [Catalytic activity/Vol]20 U/LNormal7-52The At[facility] Health Physician GroupComment on above:Performed By: #### CMP, LDH, PATH SLIDE REV, CBC #### [facility] [address] [place] [address] USAAnion gap [Moles/Vol]16.1 mmol/LHigh6.0-15.0The [facility] Health Physician GroupComment on above:Performed By: #### CMP, LDH, PATH SLIDE REV, CBC #### [facility] [address] [place] [address] USAAST [Catalytic activity/Vol]26 U/XEaktmk33-09Omq [facility] Health Physician GroupComment on above:Performed By: #### CMP, LDH, PATH SLIDE REV, CBC #### [facility] [address] [place] [address] USABilirubin [Mass/Vol]0.6 mg/dLNormal0.3-1.0The [facility] Health Physician GroupComment on above:Performed By: #### CMP, LDH, PATH SLIDE REV, CBC #### [facility] [address] [place] [address] USACalcium [Mass/Vol]10.0 mg/dLNormal8.6-10.3The [facility] Health Physician GroupComment on above:Performed By: #### CMP, LDH, PATH SLIDE REV, CBC #### [place] [address] USAChloride [Moles/Vol]101 mmol/PDuzthl97-335Jrh [facility] Health Physician GroupComment on above:Performed By: #### CMP, LDH, PATH SLIDE REV, CBC #### [place] [address] USACO2 [Moles/Vol]26.9 mmol/INtmpte18.0-31.0The [facility] Health Physician GroupComment on above:Performed By: #### CMP, LDH, PATH SLIDE REV, CBC #### [place] [address] USACreatinine [Mass/Vol]0.83 mg/dLNormal0.60-1.20The [facility] Health Physician GroupComment on above:Performed By: #### CMP, LDH, PATH SLIDE REV, CBC #### [place] [address] USACreatinine Clr Calc Wwwuqpqt56.05NormalThe Atrium Health Physician GroupComment on above:Performed By: #### CMP, LDH, PATH SLIDE REV, CBC #### [place] [address] USAGFR/1.73 sq M.predicted MDRD (S/P/Bld) [Vol rate/Area] mL/min/{1.73_m2}NormalThe Atrium Health Physician GroupComment on above:Performed By: #### CMP, LDH, PATH SLIDE REV, CBC #### [place] [address] USAGlobulin (S) [Mass/Vol]3.3 g/dLNormalThe Atrium Health Physician GroupComment on above:Performed By: #### CMP, LDH, PATH SLIDE REV, CBC #### [place] [address] USAGlucose [Mass/Vol]169 mg/vYSkxr57-499Jui [facility] Health Physician GroupComment on above:Result Comment: Random Glucose Reference Range is dependent on time and content of last meal. Glucose of more than 200 mg/dL in a nonstressed, ambulatory subject supports the diagnosis of Diabetes Mellitus. ADA recommended reference rangePerformed By: #### CMP, LDH, PATH SLIDE REV, CBC #### [place] [address] USAPotassium [Moles/Vol]4.0 mmol/LNormal3.5-5.1The [facility] Health Physician GroupComment on above:Performed By: #### CMP, LDH, PATH SLIDE REV, CBC #### [place] [address] USAProtein [Mass/Vol]7.4 g/dLNormal6.4-8.9The [facility] Health Physician GroupComment on above:Performed By: #### CMP, LDH, PATH SLIDE REV, CBC #### [place] [address] USASodium [Moles/Vol]140 mmol/EVgobyg663-223Ihh [facility] Physician GroupComment on above:Performed By: #### CMP, LDH, PATH SLIDE REV, CBC #### [place] [address] USAUrea nitrogen [Mass/Vol]8 mg/dLNormal7-25The [facility] Health Physician GroupComment on above:Performed By: #### CMP, LDH, PATH SLIDE REV, CBC #### [place] [address] USAComprehensive metabolic panelon 59-64-9571Izurhii [Mass/Vol]4.1 g/dL3.5 - 5.7 g/dLNOMS HealthcareAlbumin/Globulin [Mass ratio]1.2 {ratio}NOMS HealthcareALP [Catalytic activity/Vol]92 U/L34 - 104 U/LNOMS HealthcareALT [Catalytic activity/Vol]20 U/L7 - 52 U/LNOMS HealthcareAnion gap [Moles/Vol]16.1 mmol/LHigh6.0 - 15.0 meq/LNOMS HealthcareAST [Catalytic activity/Vol]26 U/L13 - 39 U/LNOMS HealthcareBilirubin [Mass/Vol]0.6 mg/dL0.3 - 1.0 mg/dLNOMS HealthcareCalcium [Mass/Vol]10 mg/dL8.6 - 10.3 mg/dLNOMS HealthcareChloride [Moles/Vol]101 mmol/L98 - 107 mmol/LNOMS HealthcareCO2 [Moles/Vol]26.9 mmol/L21.0 - 31.0 mmol/LNOMS HealthcareCreatinine (U) [Mass/Vol] 0.83 mg/dL0.60 - 1.20 mg/dLNOMS HealthcareCREATININE CLR CALC UESQECUT82.05NOMS HealthcareESTIMATED GFRmL/MinNOMS HealthcareGlobulin (S) [Mass/Vol]3.3 g/dLNOMS HealthcareGlucose [Mass/Vol]169 mg/vLCwqy74 - 100 mg/dLNOFL HealthcareComment on above:Random Glucose Reference Range is dependent on time and content of last meal. Glucose of more than 200 mg/dL in a nonstressed, ambulatory subject supports the diagnosis of Diabetes Mellitus. ADA recommended reference range Interpretation and review of laboratory resultsAbnormalNOMS HealthcarePotassium [Moles/Vol]4 mmol/L3.5 - 5.1 mmol/LNOMS HealthcareProtein [Mass/Vol]7.4 g/dL6.4 - 8.9 g/dLNOMS HealthcareSodium [Moles/Vol]140 mmol/L136 - 145 mmol/LNOMS HealthcareUrea nitrogen [Mass/Vol]8 mg/dL7 - 25 mg/dLNOMS HealthcareCreatinine [Mass/volume] in Serum or PlasmaOrdered By: Nataliya Jane on 04-14-2024 Creatinine [Mass/Vol]Creatinine [Mass/volume] in Serum or Plasma0.60-1.20 [facility] NorthGlobulin Calc (S) [Mass/Vol]Ordered By: Nataliya Jane on 00-20-2935Tinghnsc (S) [Mass/Vol]Serum globulin measurement by calculation (mass/volume)[facility] NorthGlucose [Mass/volume] in Serum or PlasmaOrdered By: Nataliya Jane on 75-84-8734Zuwslfc [Mass/Vol] Glucose [Mass/volume] in Serum or YevrwqFxgk33-992PubaqyjcqPremier Health Miami Valley Hospital NorthComment on above:ADA recommended reference rangeRandom Glucose Reference Range is dependent on time and content of last meal. Glucose of more than 200 mg/dL in a nonstressed, ambulatory subject supports the diagnosisof Diabetes Mellitus.Juan 04-14-2024L Specimen: [id number] Received: 04/14/24 Status: FIDEL Lisette Num: [id number] Spec Type: Impression Subm Dr: Nataliya Jane APRN Tissues: PATHPER Procedures: PATHREVIEW Age/ Patient Sex Location Account Attending Physician Taye Gay 68/F XT [id number] Nataliya Jane APRN SPEC NUM: [id number] RECD: 04/14/24 STATUS: FIDEL TA NUM: [id number] RONNY: 04/14/24- SUBM DR: Nataliya Jane APRN ENTERED: 04/14/24 [facility] DR: SPEC TYPE: Impression DEPT: MO ENTERED BY: [id number] RECV BY: [id number] ORDERED: PATHREKERI ORDERED: PATHREVIEW Pathologist Review Abnormal CBC for [...] chronic smoking. Clinical correlations are suggested CPT: 87909 Specimen: [id number] Received: 04/14/24 Status: FIDEL Ta Num: [id number] Spec Type: Impression Subm Dr: Nataliya Jane APRN Tissues: PATHPER Procedures: PATHREVIEW Patient: Taye Gay [id number] (Continued) Specimen: [id number] Received: 04/14/24 (Continued) Signed (signature on file) Nereyda Holt MD 04/15/24 0920 Specimen: [id number] Received: 04/14/24 Status: FIDEL Ta Num: [id number] Spec Type: Impression Subm Dr: Nataliya Jane APRN Tissues: PATHPER Procedures: PATHREVIEW Patient: Taye Gay [id number] (Continued) Specimen: [id number] Received: 04/14/24-1147 (Continued) CBC [...] % Lymp % (Auto) 19.3 . % [place] % (Auto) 8.7 . % Eos % (Auto) 2.6 . % Baso % (Auto) 0.6 . % NRBC% 0.1 0-0.5 /100 WBC Neut # (Auto) 7.3 1.8-7.7 x10E3/uL Lymph # (Auto) 2.1 1.00-4.8 x10E3/uL [place] # (Auto) 0.9 H 0.0-0.8 x10E3/uL Eos # (Auto) 0.3 0.0-0.45 x10E3/uL Baso# (Auto) 0.1 0.0-0.2 x10E3/uL Specimen: [id number] Received: 04/14/24 Status: FIDEL Ta Num: [id number] Spec Type: Impression Subm Dr: Nataliya Jane APRN Tissues: PATHPER Procedures: PATHREVIEW Patient: Taye Gay [id number] (Continued) Signed (signature on file) Nereyda Holt MD 04/15/24 0920NoCape Fear Valley Hoke Hospital Physician GroupLD Lactate Dehydrogenaseon 37-10-2415AXV Lactate Shqgmsempooqh891 U/AZkekpp660-508Ucl [facility] Physician GroupComment on above:Result Comment: PERFORMED BY: [facility] Mike LOUR[place] [address] PATHOLOGIST MACHINE RUG CLEANER LE MACE M.D.Performed By: #### CMP, LDH, PATH SLIDE REV, CBC #### [facility] [address] [place] [address] USALDH Lactate to pyruvate reaction [Catalytic activity/Vol] on 10-29-0782PXA LACTATE OYPFHNTVVVCVK222 U/L140 - 271 U/LNOMS HealthcareLactate dehydrogenase [Enzymatic activity/volume] in Serum or Plasma by Lactate to py Ordered By: Nataliya Gaonaoren on 25-98-4524GBG Lactate to pyruvate reaction [Catalytic activity/Vol]Lactate dehydrogenase [Enzymatic activity/volume] in Serum or Plasma by Lactate to cs316-303ExdsngrtfPremier Health Miami Valley Hospital NorthNo Panel Informationon 96-73-9223DUUN HealthcareNo Panel InformationOrdered By: Nataliya Lucinda on 44-89-1214Ufdqeglba GFR (CKD-EPI)> 60.0 mL/MinPremier Health Miami Valley Hospital NorthPharmacy Creatinine Clearance (Chem78.05[facility] Cincinnatilides for Pathologist ReviewOrdered path reviewPremier Health Miami Valley Hospital NorthPATHOLOGIST SLIDE REVIEW ([facility])on 39-53-5927BHKOIDYKFZY SLIDE REVIEW Ordered Path ReviewNOAscension All [facility] Hospital SatellitePathologist Slide Reviewon 15-43-9591Kwlkcubadhn Slide ReviewOrdered Path ReviewNoCape Fear Valley Hoke Hospital Physician GroupComment on above:Result Comment: PERFORMED BY: [facility] [address] [place] [address] PATHOLOGIST MACHINE RUG CLEANER LE MACE M.D.Performed By: #### CMP, LDH, PATH SLIDE REV, CBC #### [facility] [address] [place] [address] USAPotassium [Moles/volume] in Serum or PlasmaOrdered By: Nataliya Jane on 51-69-2748Lruatcfzn [Moles/Vol]Potassium [Moles/volume] in Serum or Plasma3.5-5.1FRegency Hospital Cleveland EastProtein [Mass/volume] in Serum or PlasmaOrdered By: Nataliya Jane on 79-95-0494Sgoaudp [Mass/Vol]Protein [Mass/volume] in Serum or Plasma6.4-8.9[facility] Cincinnatierum or plasma albumin/globulin mass ratioOrdered By: Nataliya Jane on 04-14-2024 Albumin/Globulin [Mass ratio]Serum or plasma albumin/globulin mass ratio [facility] Cincinnatierum or plasma anion gap determinationOrdered By: Nataliya Lucinda on 47-46-6075Plhse gap [Moles/Vol]Serum or plasma anion gap determinationHigh6.0-15.0[facility] - Cincinnatiodium [Moles/volume] in Serum or PlasmaOrdered By: Nataliya Jane on 57-04-2426Kziamm [Moles/Vol] Sodium [Moles/volume] in Serum or Tvftoo145-617TxktejhiyPremier Health Miami Valley Hospital North Urea nitrogen [Mass/volume] in Serum or PlasmaOrdered By: Nataliya Jane on 32-90-5538Qvaz nitrogen [Mass/Vol]Urea nitrogen [Mass/volume] in Serum or Plasma 7-[facility] Hospital NorthECG 12 [facility] 71-59-8634Lvpwcg sinus rhythm [facility] Work Phone: [facility] Work Phone: aerobic cultureOrdered By: Karl Fritz on 02-95-3483Xeoyzhaw identified Aer cx Nom (Unsp spec)[facility] NorthECG [address] [place] 03-75-3365CtlxynbtzbBlanchard Valley [facility] Work Phone: Normal sinus rhythmCPACSUniversity Hospitals [facility]Point [facility] Work Phone: aNAon 08-88-2538HORZLRZAKKU ABS, IFAPositiveCritically abnormal.NOMS HealthcareComment on above:Negative <1:80 Borderline 1:80 Positive >1:80 Interpretation and review of laboratory resultsAbnormalNOMS HealthcareNOTE 1 Comment.NOMS HealthcareComment on above:Pattern Potential Disease Association Homogeneous Systemic Lupus Erythematosus, Drug Induced Systemic Lupus Erythematosus, Chronic Autoimmune hepatitis, Juvenile Idiopathic Arthritis Speckled Sjogren Syndrome, Systemic Lupus Erythematosus, Subacute Cutaneous Lupus, Lupus, Congenital Heart Block, Mixed Connective Tissue Disease, Scleroderma-diffuse, Scleroderma-Autoimmune Myositis Overlap Syndrome, Systemic Lupus Rvgatbimihwie-Kpsrpevdjwn-Adplzrfunl Myositis Overlap Syndrome, Systemic Autoimmune Rheumatic Disease, [...] Cytopenias, Linear Scleroderma, Antiphospholipid Syndrome Performed at: [address] [id number] Bucket Wash Operator: Yuri Osullivan PhD, Phone: [phone] SPECKLED PATTERN1:320High.NOMS HealthcareComment on above:ICAP nomenclature: AC-2,4,5,29ANCA PROFILE (ANCA+MPO+PR3)on 22-28-3087VFJCAFKJNUSKNYBNGIG (MPO) ABS <0.20.0 - 0.9NOMS HealthcareATYPICAL PANCA<1:20Neg:<1:20NOMS HealthcareComment on above:The atypical pANCA pattern has been observed in a significant percentage of patients with ulcerative colitis, primary sclerosing cholangitis and autoimmune hepatitis. Performed at: [facility] [id number] Bucket Wash Operator: Christine Pham MD, Phone: [phone] Performed at: [facility] [id number] Bucket Wash Operator: Yuri Osullivan PhD, Phone: [phone] CYTOPLASMIC (C-ANCA)<1:20Neg:<1:20NOMS HealthcarePERINUCLEAR (P-ANCA)<1:20 Neg:<1:20NOMS HealthcareComment on above:The presence of positive fluorescence exhibiting P-ANCA or C-ANCA patterns alone is not specific for the diagnosis of Marni's Granulomatosis (WG) or microscopic polyangiitis. Decisions about treatment should not be based solely on ANCA IFA results. The International ANCA Group Consensus recommends follow up testing of positive sera with both MO- 3 and MPO-ANCA enzyme immunoassays. As many as 5% serum samples are positive only by EIA. Ref. AM J Clin Pathol 1999;111:507-513. PROTEINASE 3 (PR3) ANTIBODIES<0.20.0 - 0.9NOMS HealthcareANTI-CENTROMERE B ANTIBODIESon 70-51-6660JWBD-CENTROMERE B ANTIBODIES<0.20.0 - 0.9[facility] Comment on above:Performed at: [facility] [address] [id number] Bucket Wash Operator: Yuri Osullivan PhD, Phone: [phone] ANTI-DSDNA(DBL)ABon 60-99-9825VFYZ-DSDNA(DBL)AB10 - 9NOMS HealthcareComment on above:Negative <5 Equivocal 5 - 9 Positive >9 ANTI-RNPon 65-89-2250PPAG-RNP0.30.0 - 0.9NOMS HealthcareANTIRIBOSOMAL P ANTIBODIESon 97-09-2272TBDRGMTXKQTKH P ANTIBODIES<0.20.0 - 0.9[facility] Anti-Fritz antibodyon 50-86-4052WFQP-FRITZ ANTIBODIES<0.20.0 - 0.9NOMS HealthcareHISTONE ANTIBODIESon 24-23-5268SBBRDMJ ANTIBODIES0.60.0 - 0.9NOMS HealthcareComment on above:Negative <1.0 Weak Positive 1.0 - 1.5 Moderate Positive 1.6 - 2.5 Strong Positive >2.5 Performed at: [address] [id number] Bucket Wash Operator: Christine Pham MD, Phone: [phone] SUSHMA-1 ANTIBODYon 49-00-7837RW-1 ANTIBODY<0.20.0 - 0.9NOMS HealthcareMitochondrial antibodies, M2on 67-25-5286QAMUOONXMQFQY (M2) ANTIBODY<20.00.0 - 20.0NOMS HealthcareComment on above:Negative 0.0 - 20.0 Equivocal 20.1 - 24.9 Positive >24.9 Mitochondrial (M2) Antibodies are found in 90-96% of patients with primary biliary cirrhosis. Performed at: [address] [id number] Bucket Wash Operator: Yuri Osulliavn PhD, Phone: [phone] No Panel Informationon 19-01-9608EZWZ HealthcareSCLERODERMA 70 ANTIBODIESon 82-50-8051RKNTSEKAJDR 70 ANTIBODIES<0.20.0 - 0.9NOMS HealthcareSJOGRENS ANTI-SSA/SSBon 06-24-5581RK-A/RO SJOGRENS ANTIBODY<0.20.0 - 0.9[facility] SS-B/LA SJOGRENS ANTIBODY<0.20.0 - 0.9NOMS HealthcareSRP AUTOANTIBODIESon 45-60-9991YHT (SIGNAL RECOG. PARTICLE)NegativeNegativeNOMS HealthcareComment on above:This test was developed and its performance characteristics determined by [facility]. It has not been cleared or approved by the Food and Drug Administration. Performed at: [facility] [address] [place] [id number] Bucket Wash Operator: Juan Cruz MD, Phone: [phone] Alanine aminotransferase [Enzymatic activity/volume] in Serum or PlasmaOrdered By: Tolu Salinas on 11-84-6385NFE [Catalytic activity/Vol]31 U/L7-52[facility] NorthAlbumin [Mass/volume] in Serum or Plasma by Bromocresol green (BCG) dye binding methoOrdered By: Tolu Salinas on 53-39-5702Amdjajl BCG dye [Mass/Vol]4.2 g/dL3.5-5.7FRegency Hospital [place] EastAlkaline phosphatase [Enzymatic activity/volume] in Serum or PlasmaOrdered By: Tolu Salinas on 46-18-1892ZLJ [Catalytic activity/Vol]75 U/U29-761EvidaudqpPremier Health Miami Valley Hospital NorthAspartate aminotransferase [Enzymatic activity/volume] in Serum or PlasmaOrdered By: Tolu Salinas on 03-12-1878JJG [Catalytic activity/Vol]37 U/L 13-39[facility] NorthBasophil percentageOrdered By: Oz Kincaid on 35-24-3726Lckwkuyc mbhydyvfck02 ug/kT61-337KkdjtjxvwPremier Health [facility] North Comment on above:This test was developed and its performance characteristicsdetermined by [employer]. It has not been cleared orapproved by the Food and Drug Administration. Detection Limit = 5Performed at: [address] [id number] Director: Christine Pham MD, Phone: [phone] percentage2 ug/L0-9[facility] NorthComment on above:This test was developed and its performance characteristicsdetermined by [employer]. It has not been cleared orapproved by the Food and Drug Administration. Detection Limit = 1Bilirubin.total [Mass/volume] in Serum or PlasmaOrdered By: Tolu Salinas on 99-01-1477Owtfbidtf [Mass/Vol]0.4 mg/dL0.3-1.0[facility] NorthBlood lead detectionOrdered By: Oz Kincaid on 31-50-7406Nyer Ql (Bld)<1.0 ug/dL0.0-3.4FRegency Hospital [place] EastComment on above:Testing performed by Inductively coupled plasma/MassSpectrometry.Analysis by inductively coupled plasma/massspectrometry (ICP/MS)This test was developed and its performance characteristicsdetermined by [employer]. It has not been cleared orapproved by the Food and Drug Administration. Environmental Exposure: WHO Recommendation <5.0 Occupational Exposure: OSHA Lead Std 40.0 BOB 30.0 Detection Limit = 1.0Performed at: [facility] [id number] Director: Yuri bynum PhD, Phone: [phone] mercury measurement (mass/volume)Ordered By: Oz Kincaid on 00-63-2273Rmbflru (Bld) [Mass/Vol]<1.0 ug/L0.0-14.9[facility] NorthComment on above:This test was developed and its performance characteristicsdetermined by [employer]. It has not been cleared orapproved by the Food and Drug Administration. Detection Limit = 1.0Performed at: [facility] [id number] Director: Christine Pham MD, Phone: [phone] [Mass/volume] in Serum or PlasmaOrdered By: Tolu Salinas on 31-90-0873Bhbfibf [Mass/Vol]9.9 mg/dL 8.6-10.3FRegency Hospital [place] EastCarbon dioxide, total [Moles/volume] in Serum or PlasmaOrdered By: Tolu Salinas on 64-98-4241GJ2 [Moles/Vol]32.0 mmol/LHigh21.0-31.0[facility] NorthChloride [Moles/volume] in Serum or PlasmaOrdered By: Tolu Salinas on 66-71-0171Yeuefagj [Moles/Vol]103 mmol/F07-037MfqoielfyPremier Health Miami [facility] Hospital NorthCreatinine [Mass/volume] in Serum or PlasmaOrdered By: Tolu Salinas on 51-24-2310Qkeljzjgar [Mass/Vol]0.97 mg/dL 0.60-1.20[facility] NorthGlobulin Calc (S) [Mass/Vol]Ordered By: Tolu Salinas on 33-68-0064Chaszkxf (S) [Mass/Vol]2.7 g/dLPremier Health Miami Valley Hospital NorthGlucose [Mass/volume] in Serum or PlasmaOrdered By: Tolu Salinas on 09-86-5088Vvwhgvf [Mass/Vol]114 mg/bDWkhl03-423RladggdopPremier Health Miami Valley Hospital NorthComment on above:ADA recommended reference rangeRandom Glucose Reference Range is dependent on time and content of last meal. Glucose of more than 200 mg/dL in a nonstressed, ambulatory subject supports the diagnosisof Diabetes Mellitus.HIV 1 and HIV-2 antibody assay with HIV-1 p24 antigen detectionOrdered By: Oz Kincaid on 89-00-9806HOR 1+2 Ab+HIV1 p24 Ag IA QlNon-ReactiveNon Reactive [facility] NorthComment on above:HIV-1/HIV-2 antibodies and HIV-1 p24 antigen were NOTdetected. There is no laboratory evidence of HIV infection.HIV NegativePerformed at: [facility] [id number] Director: Yuri Osullivan PhD, Phone: [phone] B virus surface Ag [Presence] in Serum or Plasma by ImmunoassayOrdered By: Oz Kincaid on 36-81-8588GTS surface Ag IA QlNegativeNegativePremier Health Miami Valley Hospital NorthHeuofl health - peace hospitaltis C virus IgG Ab [Presence] in Serum or Plasma by Immunoassay Ordered By: Oz Kincaid on 11-20-9350RDX IgG IA QlNon-ReactiveNon ReactivePremier Health Miami [facility] Hospital NorthHeuofl health - peace hospitaltis C virus RNA [Units/volume] (viral load) in Serum or Plasma by TEJINDER with probOrdered By: Oz Kincaid on 18-32-6223FKG RNA TEJINDER+probe QnN/[facility] ClinicHeuofl health - peace hospitaltis C virus RNA [log units/volume] (viral load) in Serum or Plasma by TEJINDER withOrdered By: Oz Kincaid on 67-37-6430WNW RNA TEJINDER+probe [Log units/Vol]N/[facility] Lactate dehydrogenase [Enzymatic activity/volume] in Serum or Plasma by Lactate to pyOrdered By: Oz Kincaid on 25-16-3227WTV Lactate to pyruvate reaction [Catalytic activity/Vol]156 U/Y266-027AbwjdnocrPremier Health Miami Valley Hospital NorthMagnesium [Mass/volume] in Serum or PlasmaOrdered By: Tolu Salinas on 95-76-1283Yprfleyif [Mass/Vol]2.0 mg/dL1.9-2.7FRegency Hospital [place] EastNo Panel Information Ordered By: Oz Kincaid on 63-62-5169Tdicsrwymysbv Test 2See [facility]ly[facility] Medical CenterComment on above:See report. Scanned copy available in EMR.Hepatitis A IgM AntibodyNegativeNegativePremier Health Miami Valley Hospital North Hepatitis B Core IgM AntibodyNegativeNegativePremier Health Miami [facility] North Hepatitis C InterpretationComment.[facility] NorthComment on above:Not infected with HCV unless early or acute infection issuspected (which may be delayed in an immunocompromisedindividual), or other evidence exists to indicate HCVinfection.Performed at: [facility] [id number] Director: Yuri Osullivan PhD, Phone: [phone] TestSee [facility]lyria Medical CenterComment on above:See report. Scanned copy available in EMR.Whole Blood Dhjx343 ug/nU809-890RvlambvnsPremier Health Miami Valley Hospital NorthComment on above:This test was developed and its performance characteristicsdetermined by [employer]. It has not been cleared orapproved by the Food and Drug Administration.Performed at: [facility] [id number] Director: Christine Pham MD, Phone: [phone] Panel InformationOrdered By: Tolu Salinas on 59-76-6907Fzeybyuft GFR (CKD-EPI)> 60.0 mL/MinPremier Health Miami Valley Hospital NorthPharmacy Creatinine Clearance (ChemN/AFRegency Hospital [place] EastPotassium [Moles/volume] in Serum or PlasmaOrdered By: Tolu Salinas on 26-47-0555Xpnwkhrxc [Moles/Vol]4.5 mmol/L3.5-5.1FRegency Hospital [place] EastProtein [Mass/volume] in Serum or PlasmaOrdered By: Tolu Salinas on 43-92-1318Etlonxs [Mass/Vol]6.9 g/dL6.4-8.9 [facility] Cincinnatierum angiotensin converting enzyme (VITA) measurementOrdered By: Oz Kincaid on 76-40-9174Cqbtqsxrsgk converting enzyme [Catalytic activity/Vol]53 U/J39-17CltuiulqfPremier Health Miami Valley Hospital NorthComment on above:Performed at: [facility] [id number] Director: Yuri Osullivan PhD, Phone: [phone] cryoglobulin detection Ordered By: Oz Kincaid on 36-02-9718Quiirrvenkfb Ql (S)CommentNone detected [facility] NorthComment on above:None Detected at 72 hoursThis test was developed and its performance characteristicsdetermined by [employer]. It has not been cleared orapproved by the Food and Drug Administration.Performed at: [facility] [id number] Director: Yuri Osullivan PhD, Phone: [phone] or plasma albumin/globulin mass ratioOrdered By: Tolu Salinas on 28-52-0594Ngeqhuq/Globulin [Mass ratio]1.6 {ratio}[facility]atierum or plasma anion gap determination Ordered By: Tolu Salinas on 00-59-4637Pjrak gap [Moles/Vol]8.5 mmol/L6.0-15.0 [facility]innatierum or plasma ceruloplasmin measurement (mass/volume)Ordered By: Oz Kincaid on 86-56-7456Yeojuoisxaskj [Mass/Vol]26.8 mg/dL19.0-39.0[facility] NorthComment on above:Performed at: [facility] [id number] Director: Yuri Osullivan PhD, Phone: [phone] or plasma complement C3 measurement (mass/volume)Ordered By: Oz Kincaid on 91-07-2601Bqwqqxtudk C3 [Mass/Vol]147 mg/dL 82-167Prem[facility] NorthComment on above:Performed at: [facility] [place] [id number] Director: Yuri Osullivan PhD, Phone: [phone] or plasma complement C4 measurement (mass/volume)Ordered By: Oz Kincaid on 87-34-6986Zedcqzqbpy C4 [Mass/Vol]32 mg/dL 12-38[facility]innatiodium [Moles/volume] in Serum or Plasma Ordered By: Tolu Salinas on 60-31-5594Hnzqaq [Moles/Vol]139 mmol/A003-714 [facility] NorthThallium [Mass/volume] in Serum or Plasma Ordered By: Oz Kincaid on 51-74-4781Jxkpngay [Mass/Vol]<1.0 ng/mL<5.0[facility] NorthComment on above:Thallium concentrations greater than 300 ng/ml are consistent with acute toxicity. Urine is the preferred specimen for assessment of thallium exposure. Thallium analysis performed by inductively coupled plasma / mass spectrometry (ICP/MS).This test was developed and its performance characteristicsdetermined by [employer]. It has not been cleared or approvedby the Food and Drug Administration.Performed at: [facility] [place] [id number] Director: Whitney Arevalo [facility], Phone: [phone] nitrogen [Mass/volume] in Serum or Plasma Ordered By: Tolu Salinas on 32-62-8537Qwtj nitrogen [Mass/Vol]11 mg/dL7-25 [facility] NorthLACTATE AND PYRUVATEon 15-88-8692Gtibonkufwryxl and review of laboratory resultsAbnormalNOMS HealthcareLACTIC ACID, KHKVWO34.1 mg/dLHigh4.8 - 25.7 mg/dLNOMS HealthcarePYRUVIC ACID, BLOOD0.7 mg/dL0.3 - 0.7 mg/dLNOMS HealthcareComment on above:This test was developed and its performance characteristics determined by [employer]. It has not been cleared or approved by the Food and Drug Administration. Performed at: [address] [id number] Bucket Wash Operator: Yuri Osullivan PhD, Phone: [phone] Performed at: [address] [id number] Bucket Wash Operator: Christine Pham MD, Phone: [phone] [facility] HealthcareDNA double strand Ab [Units/volume] in SerumOrdered By: Oz Kincaid on 20-06-6783YTB double strand Ab Qn (S)1 [IU]/mL0-9[facility] NorthComment on above:Negative <5 Equivocal 5 - 9 Positive >9Myeloperoxidase Ab [Units/volume] in Serum by ImmunoassayOrdered By: Oz Kincaid on 11-26-2023 Myeloperoxidase Ab IA Qn (S)<0.2 units0.0-0.9[facility] NorthNo Panel InformationOrdered By: Oz Kincaid on 81-21-2050Ztbt-Nuclear Antibody Comment 2Comment.[facility] NorthComment on above:Pattern Potential Disease Association Homogeneous Systemic Lupus Erythematosus, Drug Induced Systemic Lupus Erythematosus, Chronic Autoimmune hepatitis, Juvenile Idiopathic Arthritis Speckled Sjogren Syndrome, Systemic Lupus Erythematosus, Subacute Cutaneous Lupus, Lupus, Congenital Heart Block, Mixed Connective Tissue Disease, Scleroderma-diffuse, Scleroderma- Autoimmune Myositis Overlap Syndrome, Systemic Lupus Zoadckjrzlndf-Ulswdymbfyi-Oqnwpmtxjc Myositis Overlap Syndrome, Systemic Autoimmune Rheumatic Disease, Undifferentiated Connective Tissue Disease Nucleolar Systemic Sclerosis, Scleroderma-Autoimmune Myositis Overlap Syndrome, Sjogren Syndrome, Raynaud phenomenon, Pulmonary Arterial Hypertension, Systemic Autoimmune Rheumatic Disease, Cancer Centromere Scleroderma-CREST, Limited Cutaneous SSc, Raynaud's Phenomenon, Primary Biliary Cholangit is Nuclear Dot Primary Biliary Cholangitis Nuclear Primary Biliary Cholangitis, AutoimmuneMembrane Hepatitis/Liver disease, Systemic Autoimmune Rheumatic Disease, Autoimmune Cytopenias, Linear Scleroderma, Antiphospholipid Syndrome Performed at: [facility] [id number] Director: Yuri Osullivan PhD, Phone: [phone] p-ANCA<1:20 titerNeg:<1:20[facility] NorthComment on above:The atypical pANCA pattern has been observed in asignificant percentage of patients with ulcerativecolitis,primary sclerosing cholangitis and autoimmune hepatitis.Performed at: [facility] [id number] Director: Christine Pham MD, Phone: [phone] at: [facility] [id number] Director: Yuri Osullivan PhD, Phone: [phone] ANCA (p-ANCA) Antibody<1:20 titerNeg:<1:20[facility] Comment on above:The presence of positive fluorescence exhibiting P-ANCA orC- ANCA patterns alone is not specific forthe diagnosis ofWegener's Granulomatosis (WG) or microscopic polyangiitis.Decisions about treatmentshould not be based solely onANCA IFA results. The International ANCA Group Consensusrecommends foll ow up testing of positive sera with both MO-3 and MPO-ANCA enzyme immunoassays. As many as 5% serumsamples are positive only by EIA. Ref. AM J Clin Wxlhka1623;111:507-513.Plasma Lactic Acid, Ovuwux00.1 mg/dLHigh4.8-25.7FRegency Hospital [place] EastPyruvic Acid0.7 mg/dL0.3-0.7FRegency Hospital [place] EastComment on above:This test was developed and its performance characteristicsdetermined by [employer]. It has not been cleared orapproved by the Food and Drug Administration.Performed at: [address] [id number] Director: Yuri Osullivan PhD, Phone: [phone] at: [address] [id number] Director: Christine Phma MD, Phone: [phone] Antibody0.3 AI 0.0-0.9[facility] Cincinnaticl-70 (Scleroderma) Antibody<0.2 AI 0.0-0.9[facility] - Cincinnatiignal Recognition Particle (SRP) NegativeNegativePremier Health Miami Valley Hospital NorthComment on above:This test was developed and its performance characteristicsdetermined by [employer]. It has not been cleared orapproved by the Food and Drug Administration.Performed at: [facility] [address] [place], [place] [id number] Director: Juan Cruz MD, Phone: [phone] 3 Ab [Units/volume] in Serum by ImmunoassayOrdered By: Oz Kincaid on 27-98-0040Gbekjxiigu 3 Ab IA Qn (S)<0.2 units 0.0-0.9[facility] NorthRibosomal P Ab [Units/volume] in Serum Ordered By: Oz Kincaid on 67-40-2053Cyveldwie P Ab Qn (S)<0.2 AI0.0-0.9[facility] Cincinnatierum Sushma-1 extractable nuclear antibody assay (units/volume)Ordered By: Oz Kincaid on 41-24-1755Yg-1 extractable nuclear Ab Qn (S)<0.2 AI0.0-0.9[facility] Cincinnatierum Sjogrens syndrome-A extractable nuclear antibody assay (units/volume)Ordered By: Oz Purvismatt on 05-79-4345Uljdrvhn syndrome-A extractable nuclear Ab Qn (S)<0.2 AI0.0-0.9 [facility] Cincinnatierum Sjogrens syndrome-B extractable nuclear antibody assay (units/volume)Ordered By: Oz Codi on 16-69-7751Cbeoaduf syndrome-B extractable nuclear Ab Qn (S)<0.2 AI0.0-0.9[facility] Cincinnatierum Fritz extractable nuclear antigen (ARIELLE) antibody assay (units/volume)Ordered By: Oz Kincaid on 09-33-6299Rgafx extractable nuclear Ab Qn (S)<0.2 AI0.0-0.9[facility] Cincinnatierum centromere protein B antibody assay (units/volume)Ordered By: Oz Purvismatt on 22-13-8301Oqvhkbhbas protein B Ab Qn (S)<0.2 AI0.0-0.9[facility] NorthComment on above:Performed at: [facility] [id number] Director: Yuri Osullivan PhD, Phone: [phone] classic neutrophil cytoplasmic antibody titer by immunofluorescenceOrdered By: Oz Kincaid on 41-83-4987Oordbaiica cytoplasmic Ab.classic IF (S) [Titer]<1:20 titerNeg:<1:20 [facility] Cincinnatierum histone IgG antibody assay by immunoassay (units/volume)Ordered By: Oz Kincaid on 07-16-9533Bghbthe IgG IA Qn (S)0.6 Units 0.0-0.9[facility] NorthComment on above:Negative <1.0 Weak Positive 1.0 - 1.5 Moderate Positive 1.6 - 2.5 Strong Positive >2.5Performed at: [facility] [id number] Director: Christine Scott, Phone: [phone] homogeneous pattern antinuclear antibody (PO) titerOrdered By: Oz Kincaid on 68-75-0272Xfhpwxzzbp nuclear Ab pattern (S) [Titer]N/AFCleveland Clinic Fairview Hospitalerum mitochondria M2 IgG antibody assay (units/volume)Ordered By: Oz Kincaid on 61-23-5854Wimkdndeuqhu M2 IgG Qn (S)<20.0 Units0.0-20.0[facility] NorthComment on above: Negative 0.0 - 20.0 Equivocal 20.1 - 24.9 Positive >24.9Mitochondrial (M2) Antibodies are found in 90-96% ofpatients with primary biliary cirrhosis.Performed at: [facility] [id number] Director: Yuri Osullivan PhD, Phone: [phone] nuclear antibody titerOrdered By: Oz Kincaid on 95-04-4708Bhjejiw Ab (S) [Titer]Positive Abnormal.[facility] NorthComment on above:Negative <1:80 Borderline 1:80 Positive >1:80Serum speckled pattern antinuclear antibody (PO) titerOrdered By: Oz Kincaid on 25-45-7071Upajiptk nuclear Ab pattern (S) [Titer] 1:320High.[facility] NorthComment on above:ICAP nomenclature: AC-2,4,5,29Aspartate aminotransferase [Enzymatic activity/volume] in Serum or PlasmaOrdered By: Jonas Ch on 74-83-1036EIQ [Catalytic activity/Vol]45 U/OTtyu52-21CcfzacblsPremier Health Miami Valley Hospital NorthCalcium [Mass/volume] in Serum or PlasmaOrdered By: Jonas Ch on 52-47-3618Opejobn [Mass/Vol]10.7 mg/dLHigh 8.6-10.3FRegency Hospital [place] EastCarbon dioxide, total [Moles/volume] in Serum or PlasmaOrdered By: Jonas Ch on 10-82-4662AH7 [Moles/Vol]27.7 mmol/L21.0-31.0[facility] NorthChloride [Moles/volume] in Serum or PlasmaOrdered By: Jonas Ch on 53-59-0441Qgtgxkle [Moles/Vol]102 mmol/A35-006EpxarsnrlPremier Health Miami Valley Hospital NorthCreatinine [Mass/volume] in Serum or PlasmaOrdered By: Jonas Ch on 85-55-3893Yjdslnpbup [Mass/Vol]1.02 mg/dL0.60-1.20[facility] NorthCreatinine [Mass/volume] in Urine Ordered By: Angelique Russell on 27-49-9141Zqkctnqdcs (U) [Mass/Vol]123.00 mg/dL [facility] NorthComment on above:No reference range established Glucose [Mass/volume] in Serum or PlasmaOrdered By: Jonas Ch on 38-88-6447Koyhqab [Mass/Vol]158 mg/zDZakz13-100ZqxaobkppPremier Health [facility] Hospital North Comment on above:ADA recommended reference rangeRandom Glucose Reference Range is dependent on time and content of last meal. Glucose of more than 200 mg/dL in a nonstressed, ambulatory subject supports the diagnosisof Diabetes Mellitus. Microalbumin [Mass/volume] in UrineOrdered By: Angelique Russell on 89-48-5447Gxbsnvk DL <= 20 mg/L (U) [Mass/Vol]3.0 mg/dLHigh0.0-1.8[facility] NorthNo Panel InformationOrdered By: Jonas Ch on 18-68-7260Pztythhxh GFR (CKD-EPI)> 60.0 mL/MinPremier Health Miami Valley Hospital NorthPharmacy Creatinine Clearance (ChemN/AFRegency Hospital Cleveland EastPotassium [Moles/volume] in Serum or PlasmaOrdered By: Jonas Ch on 61-46-4437Wdedkutkn [Moles/Vol]4.1 mmol/L3.5-5.1FCleveland Clinic Fairview Hospitalerum or plasma anion gap determinationOrdered By: Jonas Ch on 09-08-4373Iydya gap [Moles/Vol]12.4 mmol/L6.0-15.0[facility]innatiodium [Moles/volume] in Serum or PlasmaOrdered By: Jonas hC on 93-30-6353Qjaaex [Moles/Vol]138 mmol/L 136-145[facility] NorthThyrotropin [Units/volume] in Serum or PlasmaOrdered By: Jonas Ch on 32-40-1767TYS Qn3.39 m[IU]/L0.45-5.33 [facility] NorthUrea nitrogen [Mass/volume] in Serum or Plasma Ordered By: Jonas Ch on 62-52-5425Ptgu nitrogen [Mass/Vol]20 mg/dL7-25 [facility] NorthUrine microalbumin/creatinine mass ratioOrdered By: Angelique Russell on 15-87-4373Prafgtf/Creatinine DL <= 20 mg/L (U) [Mass ratio] 24.4 mg/g0.0-30.0[facility] NorthComment on above:30-300 mg/g indicates an increased risk for diabetic nephropathy. Greater than 300 mg/g is consistent with clinical nephropathy. (Am. J. Kidney Disease 1995, 25:107)No Panel Informationon 19-01-4719Wtyckbo Tbeceba828HdfqygmdjPremier Health Miami Valley Hospital NorthECG 12 [place] 68-97-4957Htvgab sinus rhythm Normal EKG QTc [facility] Work Phone: basophils Auto (Bld) [#/Vol]Ordered By: Chaka Frye on 34-40-7867Tkdpygnay (Bld) [#/Vol]0.0 10*3/uL0.0-0.2FRegency Hospital Cleveland EastBasophils/100 WBC Auto (Bld)Ordered By: Chaka Frye on 90-71-1558Dyvfjaudc/100 WBC (Bld)0.5 %.[facility] NorthCalcium [Mass/volume] in Serum or PlasmaOrdered By: Chaka Frye on 81-40-6509Qtyjuuh [Mass/Vol]9.5 mg/dL8.6-10.3FRegency Hospital Cleveland East Carbon dioxide, total [Moles/volume] in Serum or PlasmaOrdered By: Chaka Frye on 13-18-7517LC1 [Moles/Vol]30.0 mmol/L21.0-31.0[facility] NorthChloride [Moles/volume] in Serum or PlasmaOrdered By: Chaka Frye on 98-31-2042Akajcwhw [Moles/Vol]103 mmol/I57-375BkynxsghzPremier Health Miami Valley Hospital NorthCreatinine [Mass/volume] in Serum or PlasmaOrdered By: Chaka Frye on 95-82-3473Hxonqgdxpl [Mass/Vol]0.98 mg/dL0.60-1.20[facility] NorthEosinophils Auto (Bld) [#/Vol]Ordered By: Chaka Frye on 63-63-1429Dvavnrcipwv (Bld) [#/Vol]0.4 10*3/uL0.0-0.45[facility] NorthEosinophils/100 WBC Auto (Bld)Ordered By: Chaka Frye on 28-59-5506Cojyvqpknmc/100 WBC (Bld)5.2 %.[facility] NorthErythrocyte distribution width Auto (RBC) [Ratio]Ordered By: Chaka Frye on 29-14-8935Mrwxjinqbae distribution width (RBC) [Ratio]14.0 % 11.9-15.3FRegency Hospital Cleveland EastGlucose Glucometer (BldC) [Mass/Vol] Ordered By: Chaka Frye on 66-70-6314Cyramut [Mass/Vol]137 mg/dL [facility] NorthComment on above:Random Glucose Reference Range is dependent on time and content of last meal. Glucose of more than 200 mg/dL in a nonstressed, ambulatory subject supports the diagnosis of Diabetes Mellitus.Glucose [Mass/volume] in Serum or PlasmaOrdered By: Chaka Frye on 72-67-2546Qcbnvbj [Mass/Vol]102 mg/mZTslw02-649ByqfaxfubPremier Health Miami Valley Hospital NorthComment on above:ADA recommended reference rangeRandom Glucose Reference Range is dependent on time and content of last meal. Glucose of more than 200 mg/dL in a nonstressed, ambulatory subject supports the diagnosisof Diabetes Mellitus.Hematocrit Auto (Bld) [Volume fraction]Ordered By: Chaka Frye on 81-69-7600Vngbspdfst (Bld) [Volume fraction]44.6 %34.0-46.4FRegency Hospital Cleveland EastHemoglobin [Mass/volume] in BloodOrdered By: Chaka Frye on 84-17-4607Fbfhbiknqj (Bld) [Mass/Vol]14.6 g/dL11.8-15.4FRegency Hospital Cleveland EastLeukocytes [#/volume] corrected for nucleated erythrocytes in Blood by Automated counOrdered By: Chaka Frye on 10-34-1530XIV corrected for nucl RBC Auto (Bld) [#/Vol]7.4 10*3/uL3.8-11.6FRegency Hospital Cleveland EastLymphocytes Auto (Bld) [#/Vol]Ordered By: Chaka Frye on 52-65-1986Bwrllrgnget (Bld) [#/Vol]2.3 10*3/uL1.00-4.8[facility] NorthLymphocytes/100 WBC Auto (Bld)Ordered By: Chaka Frye on 66-24-1337Hcmherorwkm/100 WBC (Bld)30.8 %.[facility] NorthMCH Auto (RBC) [Entitic mass]Ordered By: Chaka Frye on 97-97-8795CPB (RBC) [Entitic mass]32.2 pg24.7-34.3FRegency Hospital Cleveland EastMCHC Auto (RBC) [Mass/Vol]Ordered By: Chaka Frye on 08-72-1229GFCT (RBC) [Mass/Vol]32.8 g/dL32.0-35.0[facility] NorthMCV Auto (RBC) [Entitic vol] Ordered By: Chaka Frye on 01-02-5671GFL (RBC) [Entitic vol]98.1 fL 80-100Prem[facility] NorthMagnesium [Mass/volume] in Serum or PlasmaOrdered By: Chaka Frye on 28-88-1363Ijzwfrppf [Mass/Vol]1.9 mg/dL 1.9-2.7FRegency Hospital Cleveland EastMonocytes Auto (Bld) [#/Vol]Ordered By: Chaka Frye on 39-03-3574Fjzpjgawc (Bld) [#/Vol]0.8 10*3/uL0.0-0.8 [facility] NorthMonocytes/100 WBC Auto (Bld)Ordered By: Chaka Frye on 51-51-0183Vydbnrpiw/100 WBC (Bld)11.0 %.[facility] NorthNeutrophils Auto (Bld) [#/Vol]Ordered By: Chaka Frye on 03-65-7715Zsywevmizbb (Bld) [#/Vol]3.9 10*3/uL1.8-7.7FRegency Hospital Cleveland EastNeutrophils/100 WBC Auto (Bld)Ordered By: Chaka Frye on 02-15-1564Ydgshmbpeag/100 WBC (Bld)52.5 %.[facility] NorthNo Panel InformationOrdered By: Chaka Frye on 11-12-2023 Estimated GFR (CKD-EPI)> 60.0 mL/MinPremier Health Miami Valley Hospital NorthPharmacy Creatinine Clearance (Chem63.39[facility] NorthNucleated erythrocytes [Presence] in Blood by Automated countOrdered By: Chaka Frye on 07-47-2935Weiqtomba RBC Auto Ql (Bld)0.1 /100{WBC}0-0.5FRegency Hospital Cleveland EastPlatelet mean volume Auto (Bld) [Entitic vol]Ordered By: Chaka Frye on 67-28-1229Ewesvnxw mean volume (Bld) [Entitic vol]9.1 fL 6.3-10.7FRegency Hospital Cleveland EastPlatelets Auto (Bld) [#/Vol]Ordered By: Chaka Frye on 12-97-3411Uvtlxtroe (Bld) [#/Vol]155 10*3/hN038-293 [facility] NorthPotassium [Moles/volume] in Serum or Plasma Ordered By: Chaka Frye on 95-09-0407Svdibmrwd [Moles/Vol]4.4 mmol/L 3.5-5.1FRegency Hospital Cleveland EastRBC Auto (Bld) [#/Vol]Ordered By: Chaka Frye on 13-91-4802ZOK (Bld) [#/Vol]4.54 10*6/uL3.60-5.00[facility] Cincinnatierum or plasma anion gap determinationOrdered By: Chaka Frye on 49-58-7011Okdyi gap [Moles/Vol]10.4 mmol/L6.0-15.0 [facility]innatiodium [Moles/volume] in Serum or PlasmaOrdered By: Chaka Frye on 42-12-7919Hegxuc [Moles/Vol]139 mmol/G588-996 [facility] NorthUrea nitrogen [Mass/volume] in Serum or Plasma Ordered By: Chaka Frye on 26-43-8563Zxjj nitrogen [Mass/Vol]18 mg/dL 7-25Prem[facility] NorthWBC Auto (Bld) [#/Vol]Ordered By: Chaka Frye on 37-09-9971KEB (Bld) [#/Vol]7.4 10*3/uL3.8-11.6FRegency Hospital Cleveland EastGlucose mean value [Mass/volume] in Blood Estimated from glycated hemoglobinOrdered By: Jluis Campos on 51-17-0622Vwxbrnt glucose Estimated from glycated hemoglobin (Bld) [Mass/Vol]143 mg/dLPremier Health Miami Valley Hospital North Hemoglobin A1c percentageOrdered By: Jluis Campos on 46-47-4075QuF7b (Bld) [Mass fraction]6.6 %High4.3-5.6FRegency Hospital Cleveland EastComment on above: Increased risk for diabetes: 5.7 - 6.4diabetes: >6.4glycemic control for adults with diabetes: <7.0LACTATE AND PYRUVATEon 34-11-3315BNKFBT ACID, PLASMA.NOMS HealthcareComment on above:Test not performed. Supernatant is required. CONTACTED YOUR FACILity on 11-05-2023 PYRUVIC ACID, BLOOD.[facility] HealthcareComment on above:Test not performedNOFL HealthcareNo Panel InformationOrdered By: Kirt Renae on 56-75-6342WDF Antibody 0.2 AI0.0-0.9[facility] Cincinnatierum Sushma-1 extractable nuclear antibody assay (units/volume)Ordered By: Kirt Renae on 92-53-1738Xw-1 extractable nuclear Ab Qn (S)<0.2 AI0.0-0.9[facility] Comment on above:Performed at: [facility] [employer] [id number] Director: Yuri Osullivan PhD, Phone: [phone] Sjogrens syndrome-A extractable nuclear antibody assay (units/volume)Ordered By: Kirt Renae on 74-53-8868Tngkhvxp syndrome-A extractable nuclear Ab Qn (S)<0.2 AI 0.0-0.9[facility] Cincinnatierum Sjogrens syndrome-B extractable nuclear antibody assay (units/volume)Ordered By: Kirt Renae on 11-11-2023 Sjogrens syndrome-B extractable nuclear Ab Qn (S)<0.2 AI0.0-0.9[facility] Cincinnatierum or plasma thyroglobulin antibody assay (units/volume)Ordered By: Kirt Renae on 64-53-3538Eaqugkphzkrob Ab Qn[IU]/mL 0.0-0.9[facility] NorthComment on above:Thyroglobulin Antibody measured by Mami CoulterMethodologyIt should be noted that the presence of thyroglobulinantibodies may not be pathogenic nor diagnostic, especiallyat very low levels. The assay curtain roller assembler has found thatfour percent of individuals without evidence of thyroiddisease or autoimmunity will have positive TgAb levels upto 4 IU/mL.Performed at: [facility] [id number] Director: Yuri Osullivan PhD, Phone: [phone] or plasma thyroperoxidase antibody assay (units/volume)Ordered By: Kirt Renae on 73-20-8537HTO Ab Qn[IU]/mL0-34[facility] NorthThyroxine (T4) free [Mass/volume] in Serum or PlasmaOrdered By: Kirt Renae on 87-92-0694Woah T4 [Mass/Vol]0.83 ng/dL0.61-1.12[facility] Triiodothyronine (T3) Free [Mass/volume] in Serum or PlasmaOrdered By: Kirt Renae on 87-36-2671Jspl T3 [Mass/Vol]2.60 pg/mL2.50-3.90[facility] NorthAlanine aminotransferase [Enzymatic activity/volume] in Serum or PlasmaOrdered By: Rl Villavicencio on 48-05-2217TPH [Catalytic activity/Vol]19 U/L 7-52[facility] NorthAlbumin [Mass/volume] in Serum or Plasma by Bromocresol green (BCG) dye binding methoOrdered By: Rl Villavicencio on 11-10-2023 Albumin BCG dye [Mass/Vol]4.2 g/dL3.5-5.7FRegency Hospital Cleveland East Alkaline phosphatase [Enzymatic activity/volume] in Serum or PlasmaOrdered By: Rl Villavicencio on 78-41-8949MMC [Catalytic activity/Vol]60 U/O84-764ZkyfrcrtpPremier Health Miami Valley Hospital NorthAspartate aminotransferase [Enzymatic activity/volume] in Serum or PlasmaOrdered By: Rl Villavicencio on 05-53-8696UYG [Catalytic activity/Vol]29 U/Z47-06WzlxyxndzPremier Health Miami Valley Hospital NorthBacteria [Presence] in Urine by AutomatedOrdered By: Rl Villavicencio on 53-32-4183Fugvrlbx Auto Ql (U)1+ [HPF]HighNone SeenPremier Health Miami Valley Hospital NorthBasophils Auto (Bld) [#/Vol] Ordered By: Rl Villavicencio on 40-06-1981Pdmtpnnzj (Bld) [#/Vol]0.1 10*3/uL0.0-0.2 [facility] NorthBasophils/100 WBC Auto (Bld)Ordered By: Rl Villavicencio on 75-00-2588Jtubgaumj/100 WBC (Bld)0.9 %.[facility] NorthBilirubin Test strip Ql (U)Ordered By: Rl Villavicencio on 35-16-4553Sfcryepfz Ql (U)NegativeNegativePremier Health Miami Valley Hospital NorthBilirubin.total [Mass/volume] in Serum or PlasmaOrdered By: Rl Villavicencio on 99-92-2192Naxuuldtm [Mass/Vol]0.4 mg/dL0.3-1.0[facility] NorthC reactive protein [Mass/volume] in Serum or PlasmaOrdered By: Kirt Renae on 64-23-0861QLR [Mass/Vol]< 0.5 mg/dL0.0-0.5FRegency Hospital Cleveland EastCalcium [Mass/volume] in Serum or PlasmaOrdered By: Rl Villavicencio on 06-26-7264Yodjepl [Mass/Vol]9.6 mg/dL8.6-10.3FRegency Hospital Cleveland EastCarbon dioxide, total [Moles/volume] in Serum or PlasmaOrdered By: Rl Villavicencio on 04-35-1828ZI8 [Moles/Vol]25.4 mmol/L21.0-31.0[facility] NorthChloride [Moles/volume] in Serum or PlasmaOrdered By: Rl Villavicencio on 69-23-7636Evqqapuu [Moles/Vol]105 mmol/A55-303EypmtznoyPremier Health Miami Valley Hospital NorthColor Auto (U) Ordered By: Rl Villavicencio on 95-22-5906Thyua (U)Light-yellowYellowPremier Health Miami Valley Hospital NorthCreatine kinase [Enzymatic activity/volume] in Serum or PlasmaOrdered By: Rl Villavicencio on 50-28-1519MV [Catalytic activity/Vol]69 U/L 30-223[facility] NorthCreatinine [Mass/volume] in Serum or PlasmaOrdered By: Rl Villavicencio on 03-52-3927Snoenhmuuu [Mass/Vol]0.93 mg/dL 0.60-1.20[facility] NorthEosinophils Auto (Bld) [#/Vol]Ordered By: Rl Villavicencio on 36-88-7446Jzmoiyxttse (Bld) [#/Vol]0.3 10*3/uL0.0-0.45 [facility] NorthEosinophils/100 WBC Auto (Bld)Ordered By: Rl Villavicencio on 19-87-3639Ppkcrdujhfc/100 WBC (Bld)3.7 %.[facility] NorthEpithelial cells.squamous [#/area] in Urine sediment by Automated countOrdered By: Rl Villavicencio on 91-81-8178Olhtuuxgag cells.squamous Auto (Urine sed) [#/Area]5-9 [HPF]High0-2FRegency Hospital Cleveland EastErythrocyte distribution width Auto (RBC) [Ratio]Ordered By: Rl Villavicencio on 11-10-2023 Erythrocyte distribution width (RBC) [Ratio]13.5 %11.9-15.3FRegency Hospital Cleveland EastErythrocyte sedimentation rate by Photometric methodOrdered By: Kirt Renae on 41-14-0916DCP Photometric method (Bld) [Velocity]40 mm/hrHigh 0-29[facility] NorthErythrocytes [#/area] in Urine sediment by Automated countOrdered By: Rl Villavicencio on 17-98-4631ROH Auto (Urine sed) [#/Area]5-9 [HPF]High0-4FRegency Hospital Cleveland EastFolate [Mass/volume] in Serum or PlasmaOrdered By: Kirt Renae on 71-35-5562Mwjtuo [Mass/Vol]19.6 ng/mL>5.9[facility] NorthComment on above:Folate reference range: >5.9 ng/mlThe WHO technical consultation on folate and vitamin h99valbfih ncies has determined that folate concentrations lessthan 4 ng/ml are considered deficient.Globulin Calc (S) [Mass/Vol]Ordered By: Rl Villavicencio on 11-10-2023 Globulin (S) [Mass/Vol]2.9 g/dLPremier Health Miami Valley Hospital NorthGlucose [Mass/volume] in Serum or PlasmaOrdered By: Rl Villavicencio on 92-62-2792Hnmsjgr [Mass/Vol]95 mg/dX22-792YgjyrndszPremier Health Miami Valley Hospital NorthComment on above:ADA recommended reference rangeRandom Glucose Reference Range is dependent on time and content of last meal. Glucose of more than 200 mg/dL in a nonstressed, ambulatory subject supports the diagnosisof Diabetes Mellitus.Glucose [Mass/volume] in Urine by Test stripOrdered By: Rl Villavicencio on 11-10-2023 Glucose Test strip (U) [Mass/Vol]1000 mg/dLHighNormalPremier Health Miami Valley Hospital NorthHematocrit Auto (Bld) [Volume fraction]Ordered By: Rl Villavicencio on 36-70-7604Hwqccpugsd (Bld) [Volume fraction]44.9 %34.0-46.4FRegency Hospital Cleveland EastHemoglobin Test strip Ql (U)Ordered By: Rl Villavicencio on 11-10-2023 Hemoglobin Ql (U)NegativeNegativePremier Health Miami Valley Hospital NorthHemoglobin [Mass/volume] in BloodOrdered By: Rl Villavicencio on 29-31-4312Iunwijdhvz (Bld) [Mass/Vol]15.0 g/dL11.8-15.4FRegency Hospital Cleveland EastHyaline casts [#/area] in Urine sediment by Automated countOrdered By: Rl Villavicencio on 87-94-5966Jykdmri casts Auto (Urine sed) [#/Area]None [LPF]0-8[facility] NorthKetones Test strip Ql (U)Ordered By: Rl Villavicencio on 11-10-2023 Ketones Ql (U)NegativeNegSelect Medical Specialty Hospital - AkronLeukocyte clumps [Presence] in Urine by AutomatedOrdered By: Rl Villavicencio on 42-42-0107Cdfhccmvk clumps Auto Ql (U)Occasional [LPF]HighNone SeenPremier Health Miami Valley Hospital North Leukocyte esterase [Presence] in Urine by Test stripOrdered By: Rl Villavicencio on 92-76-9757Mqgetalgp esterase Test strip Ql (U)4+HighNegSelect Medical Specialty Hospital - AkronLeukocytes [#/area] in Urine sediment by Automated countOrdered By: Rl Villavicencio on 00-97-3711RRA Auto (Urine sed) [#/Area]20-49 [HPF]High0-4 [facility] NorthLeukocytes [#/volume] corrected for nucleated erythrocytes in Blood by Automated counOrdered By: Rl Villavicencio on 22-50-2214TFB corrected for nucl RBC Auto (Bld) [#/Vol]8.5 10*3/uL3.8-11.6FRegency Hospital Cleveland EastLymphocytes Auto (Bld) [#/Vol]Ordered By: Rl Villavicencio on 44-12-2964Mcvvjnzkewx (Bld) [#/Vol]2.2 10*3/uL1.00-4.8[facility] NorthLymphocytes/100 WBC Auto (Bld)Ordered By: Rl Villavicencio on 11-10-2023 Lymphocytes/100 WBC (Bld)26.0 %.[facility] OhioH Auto (RBC) [Entitic mass]Ordered By: Rl Villavicencio on 28-73-3295VQO (RBC) [Entitic mass]32.6 pg24.7-34.3FRegency Hospital Cleveland EastHC Auto (RBC) [Mass/Vol]Ordered By: Rl Villavicencio on 01-71-8448VTJY (RBC) [Mass/Vol]33.3 g/dL32.0-35.0[facility] NorthMCV Auto (RBC) [Entitic vol]Ordered By: Rl Villavicencio on 43-29-2337CVE (RBC) [Entitic vol]97.8 yS74-483AfccydrcfPremier Health Miami Valley Hospital North Magnesium [Mass/volume] in Serum or PlasmaOrdered By: Rl Villavicencio on 11-10-2023 Magnesium [Mass/Vol]1.7 mg/dLLow1.9-2.7FRegency Hospital Cleveland EastMonocyte distribution width [Entitic volume] in Blood by AutomatedOrdered By: Rl Villavicencio on 65-86-1325Sadyfgvc distribution width Auto (Bld) [Entitic vol]19.74 % 0.00-20.00[facility] NorthMonocytes Auto (Bld) [#/Vol]Ordered By: Rl Villavicencio on 22-86-7766Zrymtzbqp (Bld) [#/Vol]0.7 10*3/uL0.0-0.8[facility] NorthMonocytes/100 WBC Auto (Bld)Ordered By: Rl Villavicencio on 83-61-3032Zaayshtpq/100 WBC (Bld)8.2 %.[facility] Neutrophils Auto (Bld) [#/Vol]Ordered By: Rl Villavicencio on 73-16-3330Klapsffdigx (Bld) [#/Vol]5.2 10*3/uL1.8-7.7FRegency Hospital Cleveland EastNeutrophils/100 WBC Auto (Bld)Ordered By: Rl Villavicencio on 16-44-6060Llgmwvxlrgf/100 WBC (Bld) 61.2 %.[facility] NorthNitrite Test strip Ql (U)Ordered By: Rl Villavicencio on 80-01-7725Tffdxcq Ql (U)NegativeNegSelect Medical Specialty Hospital - AkronNo Panel InformationOrdered By: Kirt Renae on 35-08-9287Qxrawvh Glucose CommentGlu2: cleaned meterPremier Health Miami Valley Hospital NorthNo Panel InformationOrdered By: Rl Villavicencio on 35-17-6258Lviwaxkea GFR (CKD-EPI)> 60.0 mL/MinPremier Health Miami Valley Hospital NorthPharmacy Creatinine Clearance (Chem66.28 [facility] NorthNucleated erythrocytes [Presence] in Blood by Automated countOrdered By: Rl Villavicencio on 15-07-0186Ruzfmtdjh RBC Auto Ql (Bld) 0.1 /100{WBC}0-0.5FRegency Hospital Cleveland EastPlatelet mean volume Auto (Bld) [Entitic vol]Ordered By: Rl Villavicencio on 36-64-6808Qzxkpjde mean volume (Bld) [Entitic vol]8.7 fL6.3-10.7FRegency Hospital Cleveland EastPlatelets Auto (Bld) [#/Vol]Ordered By: Rl Villavicencio on 26-44-1623Igeoithxx (Bld) [#/Vol]149 10*3/vADdr712-448AoghnruznPremier Health Miami Valley Hospital NorthPotassium [Moles/volume] in Serum or PlasmaOrdered By: Rl Villavicencio on 25-27-0898Wwjodiuum [Moles/Vol]4.6 mmol/L3.5-5.1FRegency Hospital Cleveland EastComment on above:Hemolysis is present at a level that could interfere with the result.Contact lab if redraw is requiredProtein Test strip (U) [Mass/Vol]Ordered By: Rl Villavicencio on 11-10-2023 Protein (U) [Mass/Vol]NegativeNegSelect Medical Specialty Hospital - AkronProtein [Mass/volume] in Serum or PlasmaOrdered By: Rl Villavicencio on 09-03-5776Larwcoe [Mass/Vol]7.1 g/dL6.4-8.9[facility] NorthRBC Auto (Bld) [#/Vol] Ordered By: Rl Villavicencio on 85-25-7088SXY (Bld) [#/Vol]4.59 10*6/uL3.60-5.00 [facility] Cincinnatierum or plasma albumin/globulin mass ratio Ordered By: Rl Villavicencio on 43-58-6494Psgfwec/Globulin [Mass ratio]1.4 {ratio} [facility]atierum or plasma anion gap determinationOrdered By: Rl Villavicencio on 70-11-3418Kbfvf gap [Moles/Vol]11.2 mmol/L6.0-15.0[facility] Cincinnatiodium [Moles/volume] in Serum or PlasmaOrdered By: Rl Villavicencio on 46-04-5328Kbkfur [Moles/Vol]137 mmol/B959-208KqqpgajxtSelect Medical Specialty Hospital - Cincinnatipecific gravity Test strip (U) [Rel density]Ordered By: Rl Villavicencio on 63-14-9368Qsxavzxj gravity (U) [Rel density]1.0071.001-1.030[facility] NorthThyrotropin [Units/volume] in Serum or PlasmaOrdered By: Jluis Campos on 24-05-5498HGI Qn5.73 m[IU]/LHigh0.45-5.33[facility] NorthUrea nitrogen [Mass/volume] in Serum or PlasmaOrdered By: Rl Villavicencio on 04-09-1022Nuai nitrogen [Mass/Vol]14 mg/dL7-25[facility] NorthUrine appearanceOrdered By: Rl Villavicencio on 80-81-6080Ulfiesjwjv (U)Clear ClearPremier Health Miami Valley Hospital NorthUrine culture routineOrdered By: Rl Villavicencio on 70-37-2283Appgykuu identified Cx Nom (U)2 DaysPremier Health Miami Valley Hospital NorthUrobilinogen Test strip (U) [Mass/Vol]Ordered By: Rl Villavicencio on 09-37-2786Bjkxtvkgylca (U) [Mass/Vol]Normal mg/dLNormalPremier Health Miami [facility] Hospital NorthVitamin B12 ser/plasOrdered By: Kirt Renae on 11-10-2023 Cobalamin (Vitamin B12) [Mass/Vol]306 pg/aD242-671FhsnkpexnPremier Health Miami Valley Hospital NorthVitamin D+Metabolites [Mass/volume] in Serum or PlasmaOrdered By: Jluis Campos on 02-24-5104Otbnori D+Metabolites [Mass/Vol]61.3 ng/tV30-009ChywbscsqPremier Health Miami [facility] Hospital NorthComment on above:Hemolysis is present at a level that could interfere with the result.Contact lab if redraw is requiredVITAMIN D STATUS 25(OH)VITAMIN D RANGE (ng/mL) Deficient <20 Insufficient 20 to <30Sufficient 30 to 100Reference: Sandra MF,Felisha SCANLON, Leon SHERWOOD, et al. Evaluation,treatment, and prevention of vitamin D deficiency; an Endocrine Society clinical practice guideline. JCEM. 2010;96(7):1911-30.WBC Auto (Bld) [#/Vol]Ordered By: Rl Villavicencio on 44-15-9667MCX (Bld) [#/Vol]8.5 10*3/uL 3.8-11.6FRegency Hospital Cleveland EastpH Test strip (U)Ordered By: Rl Villavicencio on 70-28-8657zW (U)6.0 [pH]5.0-9.0[facility] NorthGlucose Glucometer (BldC) [Mass/Vol]Ordered By: OSORIO WIHTE on 58-27-1295Hqfklia [Mass/Vol]139 mg/dLPremier Health Miami Valley Hospital NorthComment on above:Random Glucose Reference Range is dependent on time and content of last meal. Glucose of more than 200 mg/dL in a nonstressed, ambulatory subject supports the diagnosis of Diabetes Mellitus.Carbon dioxide, total [Moles/volume] in Serum or PlasmaOrdered By: Jonas Ch on 65-51-3201UE7 [Moles/Vol]28.6 mmol/L 21.0-31.0[facility] NorthChloride [Moles/volume] in Serum or PlasmaOrdered By: Jonas Ch on 46-70-3491Wjtwjdvp [Moles/Vol]104 mmol/L 98-107Prem[facility] NorthPotassium [Moles/volume] in Serum or PlasmaOrdered By: Jonas Ch on 16-80-5329Djzfrjdfb [Moles/Vol]4.6 mmol/L 3.5-5.1FCleveland Clinic Fairview Hospitalerum or plasma anion gap determination Ordered By: Jonas Ch on 98-46-4081Yhgdx gap [Moles/Vol]11.0 mmol/L 6.0-15.0[facility] Cincinnatiodium [Moles/volume] in Serum or PlasmaOrdered By: Jonas Ch on 76-95-5865Nhkass [Moles/Vol]139 mmol/L 136-145[facility] NorthAlanine aminotransferase [Enzymatic activity/volume] in Serum or PlasmaOrdered By: Oz Kincaid on 22-21-9690UUK [Catalytic activity/Vol]23 U/L7-52[facility] NorthAlbumin [Mass/volume] in Serum or PlasmaOrdered By: Oz Kincaid on [id number] [Mass/Vol]4.2 g/dL2.9-4.4FRegency Hospital Cleveland EastAlbumin/Protein.total in 24 hour Urine by ElectrophoresisOrdered By: Oz Kincaid on [id number] Elph (24H U) [Mass fraction]35.7 %.[facility] NorthAlpha tocopherol [Mass/volume] in Serum or PlasmaOrdered By: Oz Kincaid on 10-30-2023 Alpha tocopherol [Mass/Vol]8.7 mg/LLow9.0-29.0[facility] Comment on above:This test was developed and its performance characteristicsdetermined by [employer]. It has not been cleared orapproved by the Food and Drug Administration.Aspartate aminotransferase [Enzymatic activity/volume] in Serum or PlasmaOrdered By: Oz Kincaid on 70-54-2293HKJ [Catalytic activity/Vol]26 U/K39-77BmuynhjuzPremier Health Miami Valley Hospital NorthBorrelia burgdorferi Ab [Interpretation] in SerumOrdered By: Oz Kincaid on 10-30-2023. burgdorferi Ab (S) [Interp]N/[facility] ClinicBorrelia burgdorferi IgG Ab [Presence] in Serum or Plasma by ImmunoassayOrdered By: Oz Kincaid on 10-30-2023. burgdorferi IgG IA QlN/[facility] Borrelia burgdorferi IgG+IgM Ab [Presence] in Serum by ImmunoassayOrdered By: Oz Kincaid on 10-30-2023. burgdorferi IgG+IgM IA Ql (S)NegativeNegativePremier Health Miami Valley Hospital NorthComment on above:Lyme antibodies not detected. Reflex testing is notindicated.No laboratory evidence of infection with B. burgdorferi(Lyme disease). Negative results may occur in patientsrecently infected (less than or equal to 14 days) with B.burgdorferi. If recent infection is suspected, repeattesting on a new sample collected in 7 to 14 days isrecommended.Performed at: [address] [id number] Director: Yuri Osullivan PhD, Phone: [phone] antibodies not detected. Reflex testing is notindicated.No laboratory evidence of infection with B. burgdorferi(Lyme disease). Negative results may occur in patientsrecently infected (less than or equal to 14 days) with B.burgdorferi. If recent infection is suspected, repeattesting on a new sample collected in 7 to 14 days isrecommended.Performed at: [address] [id number] Director: Yuri Osullivan PhD, Phone: [phone] Lyme antibodies not detected.Reflex testing is notindicated.No laboratory evidence of infection with B. burgdorferi(Lyme disease). Negative results may occur in patientsrecently infected (less than or equal to 14 days) with B.burgdorferi. If recent infection is suspected, repeattesting on a new sample collected in 7 to 14 daysisrecommended. --- 11/06/23 1236 ---Lyme Total Ab previously reported as: Negative Lyme antibodies not detected. Reflex testing is notindicated.No laboratory evidence of infection with B. burgdorferi(Lyme disease). Negative results may occur in patientsrecently infected (less than or equal to 14 days) with B.burgdorferi. If recent infection is suspected, repeattesting on a new sample collected in7 to 14 days isrecommended.Performed at: [address] [id number] Director: Yuri Osullivan PhD, Phone: [phone] burgdorferi IgM Ab [Presence] in Serum or Plasma by ImmunoassayOrdered By: Oz Kincaid on 10-30-2023. burgdorferi IgM IA QlN/A [facility] NorthC reactive protein [Mass/volume] in Serum or Plasma by High sensitivity methodOrdered By: Oz Kincaid on 38-07-5283TRF High sensitivity method [Mass/Vol]2.2 mg/LHigh0.0-0.9[facility] NorthComment on above:Cardiovascular Risk Classification (AHA/CDC)hsCRP < 1.0 mg/l low relative risk for CVDhsCRP 1.0-3.0 mg/l average relative risk for CVDhsCRP > 3.0 mg/l high relative risk for CVDhsCRP > 7.5 mg/l active inflammation*Two results two weeks apart and averaged provide a morestable estimate of hsCRP level.*hsCRP levels > 7.5 mg/l may suggest infection that canlimit the use of this marker forestimation of CVD risk.CT biopsyOrdered By: Oz Kincaid on 21-12-1864LU biopsy5.0 U/L3.3-10.3FRegency Hospital [facility] Comment on above:Performed at: [facility] [id number] Director: Yuri Osullivan PhD, Phone: [phone] kinase [Enzymatic activity/volume] in Serum or PlasmaOrdered By: Oz Kincaid on 10-30-2023 CK [Catalytic activity/Vol]46 U/Y70-124GcmxvfotsPremier Health [facility] Erythrocyte sedimentation rate by Photometric methodOrdered By: Oz Kincaid on 00-85-9973YEE Photometric method (Bld) [Velocity]26 mm/hr0-29[facility] NorthFolate [Mass/volume] in Serum or PlasmaOrdered By: Oz Kincaid on 93-27-8542Gnpori [Mass/Vol]34.0 ng/mL>5.9[facility] Comment on above:Folate reference range: >5.9 ng/mlThe WHO technical consultation on folate and vitamin k66ckhvxwcfutvp has determined that folate concentrations lessthan 4 ng/ml are considered deficient.Gamma globulin/Protein.total in 24 hour Urine by ElectrophoresisOrdered By: Oz Kincaid on 08-97-5095Newfh globulin Elph (24H U) [Mass fraction]23.2 %.[facility] NorthGamma-tocopherol measurement (mass/volume)Ordered By: Oz Kincaid on 41-41-5857Nejyx tocopherol [Mass/Vol]0.7 mg/L0.5-4.9[facility] NorthComment on above:This test was developed and its performance characteristicsdetermined by [employer]. It has not been cleared orapproved by the Food and Drug Administration.Reference intervals for alpha and gamma-tocopheroldetermined from National Health and Nutrition ExaminationSurvey, 5575-7649. Individuals with alpha-tocopherol levelsless than 5.0 mg/L are considered vitamin E deficient.Glucose mean value [Mass/volume] in Blood Estimated from glycated hemoglobinOrdered By: Oz Kincaid on 10-30-2023 Average glucose Estimated from glycated hemoglobin (Bld) [Mass/Vol]143 mg/dL [facility] NorthHemoglobin A1c percentageOrdered By: Oz Kincaid on 62-99-2548XmT1o (Bld) [Mass fraction]6.6 %High4.3-5.6FRegency Hospital Cleveland EastComment on above:Increased risk for diabetes: 5.7 - 6.4diabetes: >6.4glycemic control for adults with diabetes: <7.0IgA [Mass/volume] in Serum or PlasmaOrdered By: Oz Kincaid on 63-86-8798CyF [Mass/Vol]265 mg/oC07-288 [facility] NorthIgG [Mass/volume] in Serum or PlasmaOrdered By: Oz Kincaid on 31-35-8977KmN [Mass/Vol]1034 mg/hP305-4844GswezwagpPremier Health Miami Valley Hospital NorthIgM [Mass/volume] in Serum or PlasmaOrdered By: Oz Kincaid on 02-18-0429OmQ [Mass/Vol]48 mg/aD33-456XqxdrbwycPremier Health Miami Valley Hospital NorthComment on above:Performed at: [facility] [id number] Director: Yuri Osullivan PhD, Phone: [phone] for UrineOrdered By: Oz Kincaid on 14-95-0473Euhmnarknmnxyv Immunofixation (U) [Interp]See comment.[facility] NorthComment on above:No monoclonality detected.Performed at: [facility] [id number] Director: Yuri Osullivan PhD, Phone: [phone] Panel InformationOrdered By: Oz Kincaid on 42-97-9034Usvy-Nuclear Antibody Comment 2See comment.[facility] NorthComment on above:Pattern Potential Disease Association Homogeneous Systemic Lupus Erythematosus, Drug Induced Systemic Lupus Erythematosus, Chronic Autoimmune hepatitis, Juvenile Idiopathic Arthritis Speckled Sjogren Syndrome, Systemic Lupus Erythematosus, Subacute Cutaneous Lupus, Lupus, Congenital Heart Block, Mixed Connective Tissue Disease, Scleroderma-diffuse, Scleroderma- Autoimmune Myositis Overlap Syndrome, Systemic Lupus Iuuufjqyngedm-Vfnfxgnrsls-Idukbjlyxk Myositis Overlap Syndrome, Systemic Autoimmune Rheumatic Disease, Undifferentiated Connective Tissue Disease Nucleolar Systemic Sclerosis, Scleroderma-Autoimmune Myositis Overlap Syndrome, Sjogren Syndrome, Raynaud phenomenon, Pulmonary Arterial Hypertension, Systemic Autoimmune Rheumatic Disease, Cancer Centromere Scleroderma-CREST, Limited Cutaneous SSc, Raynaud's Phenomenon, Primary Biliary Cholangit is Nuclear Dot Primary Biliary Cholangitis Nuclear Primary Biliary Cholangitis, AutoimmuneMembrane Hepatitis/Liver disease, Systemic Autoimmune Rheumatic Disease, Autoimmune Cytopenias, Linear Scleroderma, Antiphospholipid Syndrome Performed at: - [facility] [address] [place], [place] [id number] Director: Christine Pham MD, Phone: [phone] at: [facility]ScaleogyDeanna [facility] [id number] [place], [place] [id number] Director: Yuri Osullivan PhD, Phone: [phone] Potential Disease Association Homogeneous Systemic Lupus Erythematosus, Drug Induced Systemic Lupus Erythematosus, Chronic Autoimmune hepatitis, Juvenile Idiopathic Arthritis Speckled Sjogren Syndrome, Systemic Lupus Erythematosus, Subacute Cutaneous Lupus, Lupus, Congenital Heart Block, Mixed Connective Tissue Disease, Scleroderma-diffuse, Scleroderma- Autoimmune Myositis Overlap Syndrome, Systemic Lupus Qcemzopjeykcb-Dgokpkeblsf-Wpntqjjtfg Myositis Overlap Syndrome, Systemic Autoimmune Rheumatic Disease, Undifferentiated Connective Tissue Disease Nucleolar Systemic Sclerosis, Scleroderma-Autoimmune Myositis Overlap Syndrome, Sjogren Syndrome, Raynaud phenomenon, Pulmonary Arterial Hypertension, Systemic Autoimmune Rheumatic Disease, Cancer Centromere Scleroderma-CREST, Limited Cutaneous SSc, Raynaud's Phenomenon, Primary Biliary Cholangit is Nuclear Dot Primary Biliary Cholangitis Nuclear Primary Biliary Cholangitis, AutoimmuneMembrane Hepatitis/Liver disease, Systemic Autoimmune Rheumatic Disease, Autoimmune Cytopenias, Linear Scleroderma, Antiphospholipid Syndrome Performed at: - [facility] [id number] Director: Christine Pham MD, Phone: [phone] at: [facility] [id number] Director: Yuri Osullivan PhD, Phone: [phone] Pattern Potential Disease Association Homogeneous Systemic Lupus Erythematosus, Drug Induced Systemic Lupus Erythematosus, Chronic Autoimmune hepatitis, Juvenile Idiopathic Arthritis Speckled Sjogren Syndrome, Systemic Lupus Erythematosus, Subacute Cutaneous Lupus, Lupus, Congenital Heart Block, Mixed ConnectiveTissue Disease, Scleroderma-diffuse, Scleroderma- Autoimmune Myositis Overlap Syndrome, Systemic Lupus Weshdeegvdyez-Tssdzxgbmte-Ecnejqkhol Myositis Overlap Syndrome, Systemic Autoimmune Rheumatic Disease, Undifferentiated Connective Tissue Disease Nucleolar Systemic Sclerosis, Scleroderma-Autoimmune Myositis Overlap Syndrome, Sjogren Syndrome, Raynaud phenomenon, Pulmonary Arterial Hypertension, Systemic Autoimmune Rheumatic Disease, Cancer Centromere Scleroderma-CREST, Limited Cutaneous SSc, Raynaud's Phenomenon, Primary Biliary Cholangitis Nuclear Dot Primary Biliary Cholangitis Nuclear Primary Biliary Cholangitis, AutoimmuneMembrane Hepatitis/Liver disease, Systemic Autoimmune Rheumatic Disease, Autoimmune Cytopenias, Linear Scleroderma, AntiphospholipidSyndrome Performed at: [address] [id number] Director: Yuri Osullivan PhD, Phone: [phone] at: [address], [place], [place] [id number] Director: Christine Scott, Phone: [phone] --- 11/06/23 1236 ---PO CALEB Note 1 previously reported as: Pattern PotentialDisease Association Homogeneous Systemic Lupus Erythematosus, Drug Induced Systemic Lupus Erythematosus, Chronic Autoimmune hepatitis, Juvenile Idiopathic Arthritis Speckled Sjogren Syndrome, Systemic Lupus Erythematosus, Subacute Cutaneous Lupus, Lupus, Congenital Heart Block, Mixed Connective Tissue Disease, Scleroderma-diffuse, Scleroderma- Autoimmune Myositis Overlap Syndrome, Systemic Lupus Hfcgooozmkwjm-Oicvfdkylwt-Qfnzuurxjj Myositis Overlap Syndrome, Systemic Auto immune Rheumatic Disease, Undifferentiated Connective Tissue Disease Nucleolar Systemic Sclerosis, Scleroderma-Autoimmune Myositis Overlap Syndrome, Sjogren Syndrome, Raynaud phenomenon, Pulmonary Arterial Hypertension, Systemic Autoimmune Rheumatic Disease, Cancer Centromere Scleroderma-CREST, Limited Cutaneous SSc, Raynaud's Phenomenon, Primary Biliary Cholangitis Nuclear Dot Primary Biliary Cholangitis ---- Nuclear Primary Biliary Cholangitis, AutoimmuneMembrane Hepatitis/Liver disease, Systemic Autoimmune Rheumatic Disease, Autoimmune Cytopenias, Linear Scleroder (more content not included)... Lactate/Pyruvate InterpretationN/[facility] ClinicPlasma Lactic Acid, VenousSee comment.[facility] NorthComment on above:Test not performed. Supernatant is required.CONTACTED YOUR FACILity on 11-05-2023 Protein Electrophoresis M-SpikeNot observed g/dLNot ObservedPremier Health Miami Valley Hospital NorthProtein Electrophoresis NoteSee comment.[facility] NorthComment on above:Protein electrophoresis scan will follow via computer,mail, or customer consulting manager delivery.Pyruvic AcidSee comment.[facility] NorthComment on above:Test not performedSerum ImmunofixationSee comment .[facility] NorthComment on above:No monoclonality detected. Urine Random Prot Electrophor NoteSee comment.[facility] Comment on above:Protein electrophoresis scan will follow via computer,mail, or customer consulting manager delivery.Performed at: [facility] [id number] Director: Yuri Osullivan PhD, Phone: [phone] Blood Zinc 909 ug/vXGjce727-280YyszsrbkcPremier Health Miami [facility] Hospital NorthComment on above:This test was developed and its performance characteristicsdetermined by [employer]. It has not been cleared orapproved by the Food and Drug Administration.Performed at: [facility] [id number] Director: Christine Pham MD, Phone: [phone] test was developed and its performance characteristicsdetermined by [employer]. It has not been cleared orapproved by the Food and Drug Administration.Performed at: [facility] [id number] Director: Christine Pham MD, Phone: [phone] This test was developed and its performance characteristicsdetermined by [employer]. It has not been cleared orapprovedby the Food and Drug Administration. --- 11/06/23 1236 ---Zinc,WB previously reported as: 909 H ug/d LThis test was developed and its performance characteristicsdetermined by [employer]. It has not been cleared orapproved by the Food and Drug Administration.Performed at: [address] [id number] Director: Christine Pham MD, Phone: [phone] [Mass/volume] in Serum or PlasmaOrdered By: Oz Kincaid on 35-44-0538Jucarhk [Mass/Vol]7.7 g/dL6.0-8.5FRegency Hospital Cleveland EastProtein [Mass/volume] in UrineOrdered By: Oz Kincaid on 12-26-4881Eabksav (U) [Mass/Vol]28.8 mg/dLNot Estab.[facility] NorthProtein.monoclonal/Protein.total in 24 hour Urine by ElectrophoresisOrdered By: Oz Kincaid on 10-30-2023 Protein.monoclonal Elph (24H U) [Mass fraction]Not observed %Not Observed [facility] NorthReagin Ab [Presence] in Serum by RPROrdered By: Oz Kincaid on 00-13-5320Klrnsi Ab RPR Ql (S)Non-ReactiveNon ReactivePremier Health Miami [facility] Hospital NorthComment on above:Performed at: [address] [id number] Director: Yuri Osullivan PhD, Phone: [phone] West Nile virus IgG antibody detection by immunoassayOrdered By: Oz Kincaid on 10-49-2110Bxwh Nile virus IgG IA Ql (S)NegativeNegativeSelect Medical Specialty Hospital - Cincinnatierum West Nile virus IgM antibody detection by immunoassayOrdered By: Oz Kincaid on 87-75-9167Kbbm Nile virus IgM IA Ql (S) NegativeNegativePremier Health Miami Valley Hospital NorthComment on above:Performed at: [address] [id number] Director: Christine Pham MD, Phone: [phone] globulin measurement (mass/volume) Ordered By: Oz Kincaid on 42-72-2127Fzvivcsh (S) [Mass/Vol]3.5 g/dL2.2-3.9 [facility] Cincinnatierum homogeneous pattern antinuclear antibody (PO) titerOrdered By: Oz Kincaid on 07-76-7605Juicbosveg nuclear Ab pattern (S) [Titer]N/AFCleveland Clinic Fairview Hospitalerum nuclear antibody titerOrdered By: Oz Kincaid on 04-18-7007Kzunnvk Ab (S) [Titer]PositiveAbnormal.[facility] NorthComment on above:Negative <1:80 Borderline 1:80 Positive >1:80Serum or plasma albumin/globulin mass ratioOrdered By: Oz Kincaid on 58-34-3543Aplilgz/Globulin [Mass ratio]1.2 {ratio}0.7-1.7FCleveland Clinic Fairview Hospitalerum or plasma alpha 1 globulin measurement by electrophoresis (mass/volume)Ordered By: Oz Kincaid on 54-55-4663Kaihp 1 globulin Elph [Mass/Vol] 0.3 g/dL0.0-0.4FCleveland Clinic Fairview Hospitalerum or plasma alpha 2 globulin measurement by electrophoresis (mass/volume)Ordered By: Oz Kincaid on 10-30-2023 Alpha 2 globulin Elph [Mass/Vol]1.0 g/dL0.4-1.0[facility] Serum or plasma beta globulin measurement by electrophoresis (mass/volume) Ordered By: Oz Kincaid on 38-78-2604Yxkc globulin Elph [Mass/Vol]1.1 g/dL0.7-1.3 [facility] - Cincinnatierum or plasma ceruloplasmin measurement (mass/volume)Ordered By: Oz Kincaid on 01-17-7599Racaavoeduvnw [Mass/Vol]30.1 mg/dL19.0-39.0[facility] NorthComment on above:Performed at: - [facility] [id number] Director: Yuri Osullivan PhD, Phone: [phone] or plasma gamma globulin measurement by electrophoresis (mass/volume)Ordered By: Oz Kincaid on 57-85-6500Msdrs globulin Elph [Mass/Vol]1.1 g/dL0.4-1.8[facility] Cincinnatierum or plasma homocysteine measurement (moles/volume)Ordered By: Oz Kincaid on 10-30-2023 Homocysteine [Moles/Vol]20.7 umol/LHigh0.0-17.2FRegency Hospital Cleveland East Comment on above:Performed at: [address] [id number] Director: Yuri Osullivan PhD, Phone: [phone] or plasma lutropin measurement (units/volume)Ordered By: Oz Kincaid on 72-86-2954Fqkrehce Qn 60.4 m[IU]/mLHigh7.7-58.5FRegency Hospital Cleveland EastComment on above:Adult Female Range Follicular phase 2.4 - 12.6 Ovulation phase 14.0 - 95.6 Luteal phase 1.0 - 11.4 Postmenopausal 7.7 - 58.5Serum or plasma methylmalonate measurement (moles/volume)Ordered By: Oz Kincaid on 32-53-3449Abbvhzaqlxqnvn [Moles/Vol]247 nmol/L0-378[facility] NorthComment on above:This test was developed and its performance characteristicsdetermined by [employer]. It has not been cleared orapproved by the Food and Drug Administration.Performed at: [address] [id number] Director: Christine Pham MD, Phone: [phone] test was developed and its performance characteristicsdetermined by [employer]. It has not been cleared orapproved by the Food and Drug Administration.Performed at: [address] [id number] Director: Christine Pham MD, Phone: [phone] This test was developed and its performance characteristicsdetermined by [employer]. It has not been cleared orapprovedby the Food and Drug Administration. --- 11/06/23 1236 ---Methylmal Acid previously reported as: 247 nmol/LThis test was developed and its performance characteristicsdetermined by [employer]. It has notbeen cleared orapproved by the Food and Drug Administration.Performed at: [address] [id number] Director: Christine Pham MD, Phone: [phone] or plasma pyridoxine measurement (mass/volume)Ordered By: Oz Kincaid on 61-08-5283Yvuuutrnof [Mass/Vol]8.8 ug/L3.4-65.2FRegency Hospital Cleveland EastComment on above:This test was developed and its performance characteristicsdetermined by [employer]. It has not been cleared orapproved by the Food and Drug Administration. Deficiency: <3.4 Marginal: 3.4 - 5.1 Adequate: >5.1Performed at: [address] [id number] Director: Christine Pham MD, Phone: [phone] or plasma rheumatoid factor measurement (units/volume)Ordered By: Oz Kincaid on 10-30-2023 Rheumatoid factor Qn[IU]/mL<14.0[facility] Cincinnatierum speckled pattern antinuclear antibody (PO) titerOrdered By: Oz Kincaid on 10-30-2023 Speckled nuclear Ab pattern (S) [Titer]1:80.[facility] Comment on above:ICAP nomenclature: AC-2,4,5,29Thyrotropin [Units/volume] in Serum or PlasmaOrdered By: Oz Kincaid on 10-55-7262CGT Qn6.38 m[IU]/LHigh0.45-5.33 [facility] NorthThyroxine (T4) free [Mass/volume] in Serum or PlasmaOrdered By: Oz Kincaid on 40-56-4809Iwzl T4 [Mass/Vol]0.89 ng/dL0.61-1.12 [facility] NorthUrine alpha 1 globulin/total protein by electrophoresisOrdered By: Oz Kincaid on 80-84-2386Sbxzo 1 globulin Elph (U) [Mass fraction]0.4 %.[facility] NorthUrine alpha 2 globulin/total protein ratio by electrophoresisOrdered By: Oz Kincaid on 82-10-8612Vqkmb 2 globulin Elph (U) [Mass fraction]8.9 %.[facility] NorthUrine beta globulin measurement by electrophoresis (mass/volume)Ordered By: Oz Kincaid on 36-17-8653Oori globulin Elph (U) [Mass/Vol]31.7 %.[facility] NorthVitamin B12 ser/plasOrdered By: Oz Kincaid on 31-25-8493Bannvzmow (Vitamin B12) [Mass/Vol]300 pg/tT429-223AtcamjaamPremier Health Miami Valley Hospital NorthGlucose Glucometer (BldC) [Mass/Vol]Ordered By: Elva Florian on 46-36-8700Hxcqmie [Mass/Vol]134 mg/dLPremier Health Miami Valley Hospital NorthComment on above:Random Glucose Reference Range is dependent on time and content of last meal. Glucose of more than 200 mg/dL in a nonstressed, ambulatory subject supports the diagnosis of Diabetes Mellitus.No Panel InformationOrdered By: Elva Florian on 73-84-9207Ntdltnx Glucose CommentGlu2: cleaned meterPremier Health Miami Valley Hospital NorthCholesterol [Mass/volume] in Serum or PlasmaOrdered By: Elva Florian on 55-20-1237Vfllksvosrc [Mass/Vol]125 mg/oNPrd187-196GcjzezcdfPremier Health Miami Valley Hospital NorthComment on above:Chol less than 200 mg/dl low riskChol 201-239 mg/dl borderline riskChol 240 mg/dl and greater high riskCholesterol in LDL Calc [Mass/Vol]Ordered By: Elva Florian on 93-42-6304Lfcjatbeswz in LDL [Mass/Vol] 59 mg/dL0-100[facility] NorthComment on above:LDL ATP III CLASSIFICATIONLDL less than 100 mg/dL OptimalLDL 100-129 mg/dL Near or above fitlvhbZTB815-044 mg/dL Borderline highLDL 160-189 mg/dL HighLDL greater than 189 mg/dL Very highCholesterol in VLDL Calc [Mass/Vol]Ordered By: Elva Florian on 88-74-0270Qjeobewnsts in VLDL [Mass/Vol]39 mg/dLPremier Health Miami Valley Hospital NorthMagnesium [Mass/volume] in Serum or PlasmaOrdered By: Elva Florian on 19-35-8398Yeikakvlo [Mass/Vol]1.6 mg/dLLow1.9-2.7FCleveland Clinic Fairview Hospitalerum or plasma high density lipoprotein (HDL) cholesterol measurement Ordered By: Elva Florian on 66-42-7627Tlaxstfftjg in HDL [Mass/Vol]26 mg/dL 23-92Prem[facility] NorthComment on above:HDL CHOL ATP-III CLASSIFICATION Cardiovascular RiskHDL > or equal to 60 mg/dL LOWHDL < 40 mg/dL HIGHSerum or plasma total cholesterol/high density lipoprotein (HDL) cholesterol mass ratOrdered By: Elva Florian on 53-23-2629Hpdzapqxlta.total/Cholesterol in HDL [Mass ratio]4.8 {ratio}<5.0[facility] NorthThyrotropin [Units/volume] in Serum or PlasmaOrdered By: Elva Florian on 38-38-1921BUJ Qn 2.48 m[IU]/L0.45-5.33[facility] NorthTriglyceride [Mass/volume] in Serum or PlasmaOrdered By: Elva Florian on 73-22-1237Xczgoakffpwq [Mass/Vol]198 mg/dLHigh0-149[facility] NorthComment on above: TRIG ATP III CLASSIFICATIONTRIG less than 150 mg/dL NormalTRIG 150-199 mg/dL Borderline highTRIG 200-500 mg/dL High TRIG greater than 500 mg/dL Very highStandard traceable to the Center for Disease Conrtrol and Prevention (CDC) test method.Activated partial thromboplastin time (aPTT) in platelet poor plasma by coagulation aOrdered By: Edgar Valenzuela on 76-39-6693uMRA Coag (PPP) [Time] 29.3 s25.1-36.5FRegency Hospital Cleveland EastComment on above:A hematocrit value greater than 55% may lead to inaccurate results in coagulation testing. Patientshaving hematocrit values >55% require a special collection tube for coagulation studies. Please contact the laboratory at [phone] for redraw instructions.Basophils Auto (Bld) [#/Vol]Ordered By: Edgar Valenzuela on 09-12-2023 Basophils (Bld) [#/Vol]0.1 10*3/uL0.0-0.2FRegency Hospital Cleveland East Basophils/100 WBC Auto (Bld)Ordered By: Edgar Valenzuela on 60-91-4030Mzfqjoury/100 WBC (Bld)0.9 %.[facility] NorthCalcium [Mass/volume] in Serum or PlasmaOrdered By: Edgar Valenzuela on 44-17-4881Ymkuqkj [Mass/Vol]10.5 mg/dLHigh 8.6-10.3FRegency Hospital Cleveland EastCarbon dioxide, total [Moles/volume] in Serum or PlasmaOrdered By: Edgar Valenzuela on 71-58-1245IJ6 [Moles/Vol]25.0 mmol/L21.0-31.0[facility] NorthChloride [Moles/volume] in Serum or PlasmaOrdered By: Edgar Valenzuela on 70-96-5993Vxpvvpgl [Moles/Vol]102 mmol/L 98-107[facility] NorthCreatine kinase [Enzymatic activity/volume] in Serum or PlasmaOrdered By: Edgar Valenzuela on 05-81-0205RU [Catalytic activity/Vol]45 U/P91-129UjrseztfbPremier Health Miami Valley Hospital NorthCreatinine [Mass/volume] in Serum or PlasmaOrdered By: Edgar Valenzuela on 09-12-2023 Creatinine [Mass/Vol]0.84 mg/dL0.60-1.20[facility] Eosinophils Auto (Bld) [#/Vol]Ordered By: Edgar Valenzuela on 07-81-6582Mpgolhuqjwc (Bld) [#/Vol]0.2 10*3/uL0.0-0.45[facility] Eosinophils/100 WBC Auto (Bld)Ordered By: Edgar Valenzuela on 09-12-2023 Eosinophils/100 WBC (Bld)1.7 %.[facility] NorthErythrocyte distribution width Auto (RBC) [Ratio]Ordered By: Edgar Valenzuela on 09-12-2023 Erythrocyte distribution width (RBC) [Ratio]12.7 %11.9-15.3FRegency Hospital Cleveland EastGlucose [Mass/volume] in Serum or PlasmaOrdered By: Edgar Valenzuela on 52-87-6217Ftuufae [Mass/Vol]150 mg/wYTkyw01-358MzsqiikrmPremier Health Miami Valley Hospital NorthComment on above:ADA recommended reference rangeRandom Glucose Reference Range is dependent on time and content of last meal. Glucose of more than 200 mg/dL in a nonstressed, ambulatory subject supports the diagnosisof Diabetes Mellitus.HbA1c HPLC (Bld) [Mass fraction]on 63-82-1837XbC2e (Bld) [Mass fraction]6.6 %[facility] NorthHematocrit Auto (Bld) [Volume fraction]Ordered By: Edgar Valenzuela on 48-26-7321Lmnmubpkht (Bld) [Volume fraction]49.3 %High34.0-46.4FRegency Hospital Cleveland EastHemoglobin [Mass/volume] in BloodOrdered By: Edgar Valenzuela on 21-40-7636Brnbrywmsm (Bld) [Mass/Vol]16.9 g/lXYtak10.8-15.4FRegency Hospital Cleveland EastINR in Platelet poor plasma by Coagulation assayOrdered By: Edgar Valenzuela on 56-24-8801SKJ Coag (PPP) [Relative time]1.1 {INR}[facility] NorthComment on above:INR Therapeutic Range A) Pre- and Peroperative OAT started two weeks before surgery. NOT HIP SURGERY: 1.5 - 2.5 HIP SURGERY: 2 - 3B) Primary and secondary prevention of venous THROMBOSIS: 2 - 3C) Active venous thrombosis, pulmonary embolismand prevention of recurrent venous thrombosis: 2 - 3D) Preve ntion of arterial thromboembolismincluding patients with mechanical heart valves: 3 - 4.5Leukocytes [#/volume] corrected for nucleated erythrocytes in Blood by Automated counOrdered By: Edgar Valenzuela on 35-01-5904NPB corrected for nucl RBC Auto (Bld) [#/Vol]9.8 10*3/uL3.8-11.6FRegency Hospital Cleveland East Lymphocytes Auto (Bld) [#/Vol]Ordered By: Edgar Valenzuela on 16-97-1589Xmnjojfnxvf (Bld) [#/Vol]2.0 10*3/uL1.00-4.8[facility] Lymphocytes/100 WBC Auto (Bld)Ordered By: Edgar Valenzuela on 09-12-2023 Lymphocytes/100 WBC (Bld)20.2 %.[facility] Auto (RBC) [Entitic mass]Ordered By: Edgar Valenzuela on 26-95-1594PNP (RBC) [Entitic mass] 32.7 pg24.7-34.3FRegency Hospital Cleveland EastHC Auto (RBC) [Mass/Vol] Ordered By: Edgar Valenzuela on 64-11-9223LHTM (RBC) [Mass/Vol]34.2 g/dL32.0-35.0 [facility] NorthMCV Auto (RBC) [Entitic vol]Ordered By: Edgar Valenzuela on 86-40-0467PAO (RBC) [Entitic vol]95.6 qM21-383EcrdkxgxePremier Health Miami Valley Hospital NorthMonocyte distribution width [Entitic volume] in Blood by Automated Ordered By: Edgar Valenzuela on 82-30-9572Fmsmqkub distribution width Auto (Bld) [Entitic vol]19.90 %0.00-20.00[facility] NorthMonocytes Auto (Bld) [#/Vol]Ordered By: Edgar Valenzuela on 92-35-8790Orkunfisp (Bld) [#/Vol]0.6 10*3/uL0.0-0.8[facility] NorthMonocytes/100 WBC Auto (Bld) Ordered By: Edgar Valenzuela on 93-45-2933Zyepwfzuy/100 WBC (Bld)5.9 %.[facility] NorthNatriuretic peptide B [Mass/Vol]Ordered By: Edgar Valenzuela on 09-40-0281Uuoxowsuwxl peptide B (Bld) [Mass/Vol]112.0 pg/mLHigh5-100 [facility] NorthNeutrophils Auto (Bld) [#/Vol]Ordered By: Edgar Valenzuela on 58-45-0864Izkszdsaxsb (Bld) [#/Vol]7.0 10*3/uL1.8-7.7FRegency Hospital Cleveland EastNeutrophils/100 WBC Auto (Bld)Ordered By: Edgar Valenzuela on 25-26-8691Qoxjwwjpeep/100 WBC (Bld)71.3 %.[facility] NorthNo Panel InformationOrdered By: Edgar Valenzuela on 81-92-6910Hquqsybzl GFR (CKD-EPI) > 60.0 mL/MinPremier Health Miami Valley Hospital NorthPharmacy Creatinine Clearance (Chem73.11[facility] NorthNo Panel Informationon 09-12-2023 Bedside Uasxqbp438XucqtvxgdPremier Health [facility] Hospital NorthNucleated erythrocytes [Presence] in Blood by Automated countOrdered By: Edgar Valenzuela on 09-12-2023 Nucleated RBC Auto Ql (Bld)0.2 /100{WBC}0-0.5FRegency Hospital [facility] East Platelet mean volume Auto (Bld) [Entitic vol]Ordered By: Edgar Valenzuela on 08-71-1558Safivipc mean volume (Bld) [Entitic vol]9.5 fL6.3-10.7FRegency Hospital Cleveland EastPlatelets Auto (Bld) [#/Vol]Ordered By: Edgar Valenzuela on 82-04-1711Iydpxrtlc (Bld) [#/Vol]195 10*3/wE519-881YwwexlaxiPremier Health Miami Valley Hospital NorthPotassium [Moles/volume] in Serum or PlasmaOrdered By: Edgar Valenzuela on 82-27-2271Strplwdxz [Moles/Vol]4.0 mmol/L3.5-5.1FRegency Hospital Cleveland EastProthrombin time (PT)Ordered By: Edgar Valenzuela on 91-63-6251NB Coag (PPP) [Time]12.7 s9.0-12.9[facility] NorthComment on above:A hematocrit value greater than 55% may lead to inaccurate results in coagulation testing. Patientshaving hematocrit values >55% require a special collection tube for coagulation studies. Please contact the laboratory at [phone] for redraw instructions.RBC Auto (Bld) [#/Vol]Ordered By: Edgar Valenzuela on 27-08-7969QXO (Bld) [#/Vol]5.16 10*6/uLHigh3.60-5.00[facility]atierum or plasma anion gap determinationOrdered By: Edgar Valenzuela on 16-24-7504Imacm gap [Moles/Vol]15.0 mmol/L6.0-15.0[facility]innatiodium [Moles/volume] in Serum or PlasmaOrdered By: Edgar Valenzuela on 29-45-9841Ytybak [Moles/Vol]138 mmol/N070-417QebqjblbhPremier Health Miami [facility] Hospital North Troponin I.cardiac [Mass/volume] in Serum or Plasma by Detection limit <= 0.01 ng/Ordered By: Edgar Valenzuela on 87-84-0452Lkqkkbdl I.cardiac DL <= 0.01 ng/mL [Mass/Vol]7.3 pg/mL0.0-15.0[facility] NorthUrea nitrogen [Mass/volume] in Serum or PlasmaOrdered By: Edgar Valenzuela on 81-01-9694Cvat nitrogen [Mass/Vol]11 mg/dL7-25[facility] NorthWBC Auto (Bld) [#/Vol]Ordered By: Edgar Valenzuela on 14-74-8861QML (Bld) [#/Vol]9.8 10*3/uL 3.8-11.6FRegency Hospital Cleveland EastAlanine aminotransferase [Enzymatic activity/volume] in Serum or PlasmaOrdered By: Angelique Russell on 23-07-4510DSD [Catalytic activity/Vol]19 U/L7-52[facility] NorthAlbumin [Mass/volume] in Serum or Plasma by Bromocresol green (BCG) dye binding metho Ordered By: Angelique Russell on 70-80-0697Kbvpvvx BCG dye [Mass/Vol]4.3 g/dL3.5-5.7 [facility] NorthAlkaline phosphatase [Enzymatic activity/volume] in Serum or PlasmaOrdered By: Angelique Russell on 84-87-7298PYM [Catalytic activity/Vol]81 U/G60-485LfcrxghkoPremier Health Miami Valley Hospital NorthAspartate aminotransferase [Enzymatic activity/volume] in Serum or PlasmaOrdered By: Barbera Yvonne on 28-59-9385YUY [Catalytic activity/Vol]26 U/M77-67MabgznstoPremier Health Miami [facility] Hospital NorthBilirubin.total [Mass/volume] in Serum or PlasmaOrdered By: Barbera Yvonne on 11-51-2410Watggswwa [Mass/Vol]0.7 mg/dL0.3-1.0[facility] NorthCalcium [Mass/volume] in Serum or PlasmaOrdered By: Tondra Leonardous on 45-15-6628Gljdrom [Mass/Vol]10.2 mg/dL8.6-10.3FRegency Hospital Cleveland EastCarbon dioxide, total [Moles/volume] in Serum or PlasmaOrdered By: Juliodra Mapus on 97-46-7202XP1 [Moles/Vol]28.6 mmol/L21.0-31.0[facility] NorthChloride [Moles/volume] in Serum or PlasmaOrdered By: Angelique Russell on 09-36-7570Kaiaexmv [Moles/Vol]102 mmol/M79-950IentcluvnPremier Health Miami [facility] Hospital NorthCholesterol [Mass/volume] in Serum or PlasmaOrdered By: Angelique Russell on 79-35-0332Fscpmeucqlh [Mass/Vol]143 mg/jI153-431IpfyrwdzuPremier Health Miami [facility] Hospital NorthComment on above:Chol less than 200 mg/dl low riskChol 201-239 mg/dl borderline riskChol 240 mg/dl and greater high riskCholesterol in LDL Calc [Mass/Vol]Ordered By: Angelique Russell on 03-25-8155Kwlkyhgyyqp in LDL [Mass/Vol]62 mg/dL0-100[facility] NorthComment on above:LDL ATP III CLASSIFICATIONLDL less than 100 mg/dL OptimalLDL 100-129 mg/dL Near or above oxijgreLAB181-236 mg/dL Borderline highLDL 160-189 mg/dL HighLDL greater than 189 mg/dL Very highCholesterol in VLDL Calc [Mass/Vol]Ordered By: Angelique Russell on 74-86-2196Ugrcrrmplbg in VLDL [Mass/Vol]51 mg/dLPremier Health Miami Valley Hospital NorthCreatinine [Mass/volume] in Serum or PlasmaOrdered By: Angelique Russell on 32-88-7436Rkiwoaiubu [Mass/Vol]0.91 mg/dL0.60-1.20[facility] NorthCreatinine [Mass/volume] in UrineOrdered By: Angelique Russell on 09-05-2023 Creatinine (U) [Mass/Vol]118.0 mg/dLPremier Health Miami Valley Hospital NorthComment on above:No reference range establishedGlobulin Calc (S) [Mass/Vol]Ordered By: Angelique Russell on 22-90-5544Yacatxwg (S) [Mass/Vol]2.7 g/dLPremier Health Miami Valley Hospital NorthGlucose [Mass/volume] in Serum or PlasmaOrdered By: Angelique Russell on 67-28-3906Kmnbuco [Mass/Vol]197 mg/gCEqsr05-062JdisybvqiPremier Health Miami [facility] Hospital NorthComment on above:ADA recommended reference rangeRandom Glucose Reference Range is dependent on time and content of last meal. Glucose of more than 200 mg/dL in a nonstressed, ambulatory subject supports the diagnosisof Diabetes Mellitus.Microalbumin [Mass/volume] in UrineOrdered By: Angelique Russell on 22-10-9259Kapqeup DL <= 20 mg/L (U) [Mass/Vol]18.4 mg/dLHigh0.0-1.8[facility] NorthNo Panel InformationOrdered By: Angelique Russell on 14-78-9338Jwajzicku GFR (CKD-EPI)> 60.0 mL/MinPremier Health Miami [facility] Hospital North Pharmacy Creatinine Clearance (ChemN/[facility] ClinicPotassium [Moles/volume] in Serum or PlasmaOrdered By: Angelique Russell on 09-05-2023 Potassium [Moles/Vol]4.2 mmol/L3.5-5.1FRegency Hospital Cleveland EastProtein [Mass/volume] in Serum or PlasmaOrdered By: Angelique Russell on 84-49-6697Rstashm [Mass/Vol]7.0 g/dL6.4-8.9[facility]innatierum or plasma albumin/globulin mass ratioOrdered By: Angelique Russell on 09-05-2023 Albumin/Globulin [Mass ratio]1.6 {ratio}[facility]atierum or plasma anion gap determinationOrdered By: Angelique Russell on 46-53-3280Ftbbn gap [Moles/Vol]13.6 mmol/L6.0-15.0[facility]innatierum or plasma high density lipoprotein (HDL) cholesterol measurementOrdered By: Angelique Russell on 24-99-5720Rmcbgdwiwlr in HDL [Mass/Vol]30 mg/mM40-43QjontyzbfPremier Health Miami [facility] Hospital NorthComment on above:HDL CHOL ATP-III CLASSIFICATION Cardiovascular RiskHDL > or equal to 60 mg/dL LOWHDL < 40 mg/dL HIGHSerum or plasma total cholesterol/high density lipoprotein (HDL) cholesterol mass ratOrdered By: Angelique Russell on 39-55-7729Blngcjzpfks.total/Cholesterol in HDL [Mass ratio]4.8 {ratio}<5.0[facility]innatiodium [Moles/volume] in Serum or PlasmaOrdered By: Angelique Russell on 80-57-9876Modtbb [Moles/Vol]140 mmol/U391-668 [facility] NorthTriglyceride [Mass/volume] in Serum or Plasma Ordered By: Angelique Russell on 33-07-6758Znebmrqhynwf [Mass/Vol]256 mg/dLHigh0-149 [facility] NorthComment on above:TRIG ATP III CLASSIFICATIONTRIG less than 150 mg/dL NormalTRIG 150-199 mg/dL Borderline highTRIG 200-500 mg/dL High TRIG greater than 500 mg/dL Very highStandard traceable to the Center for Disease Conrtrol and Prevention (CDC) test method. Urea nitrogen [Mass/volume] in Serum or PlasmaOrdered By: Angelique Russell on 75-44-8002Wpma nitrogen [Mass/Vol]12 mg/dL7-25[facility] Urine microalbumin/creatinine mass ratioOrdered By: Angelique Russell on 09-05-2023 Albumin/Creatinine DL <= 20 mg/L (U) [Mass ratio]155.0 mg/gHigh0.0-30.0[facility] NorthComment on above:30-300 mg/g indicates an increased risk for diabetic nephropathy. Greater than 300 mg/g is consistent with clinical nephropathy. (Am. J. Kidney Disease 1995, 25:107)Vitamin B12 ser/plasOrdered By: Angelique Russell on 46-40-4340Ogiogtaxs (Vitamin B12) [Mass/Vol]255 pg/oA897-290 [facility] NorthLaboratory - Hematology and Cell countson 09-72-3862BtM7x (Bld) [Mass fraction]7.2 %[facility] NorthNo Panel Informationon 29-46-9178Bguefud Mvftmfc915YyjbtcjioPremier Health [facility] Hospital NorthA1C HEMOGLOBINon 40-49-8478CaO5m (Bld) [Mass fraction]6.3 %[facility] Other Glucose - FINGER STICKon 64-03-0477Nhrzrbz [Mass/Vol] 196 mg/dLNort [facility] Other HbA1c (Bld) [Mass fraction]on 78-24-2027T9A HEMOGLOBIN [facility] Other A1C HEMOGLOBINon 85-61-2338MgM1f (Bld) [Mass fraction] 6.6 %[facility] Other Glucose - FINGER STICKon 60-81-0452Fridrxy [Mass/Vol] 128 mg/dLNoQualnetics [facility] Other HbA1c (Bld) [Mass fraction]on 61-26-7387N1U HEMOGLOBIN [facility] Other a1c HEMOGLOBINon 69-52-2411UqC9x (Bld) [Mass fraction] 7.1 %[facility] Other Glucose - FINGER STICKon 55-01-3466Xfetmzu [Mass/Vol] 219 mg/dLNoQualnetics [facility] Other HbA1c (Bld) [Mass fraction]on 01-58-1741X7X HEMOGLOBIN [facility] Other a1c HEMOGLOBINon 82-13-9752CjT0f (Bld) [Mass fraction] 7.7 %[facility] Other Glucose - FINGER STICKon 91-56-0755Sdjllty [Mass/Vol] 242 mg/dLNobarnes-jewish hospital [facility] Other HbA1c (Bld) [Mass fraction]on 67-64-8968S6Z HEMOGLOBIN [facility] Other Consultation Noteon 13-08-0957Lzhpzgdokiya Note [id number]#1.00CD:[address] [place], [place] [address]Insurance Correspondence Officeon 96-01-2925Ebfcjcpht Correspondence [id number]#1.00CD:[address] [place], [place] [address]Urine culture routineOrdered By: Milo Watters on 12-19-2021 Bacteria identified Cx Nom (U)Zeny albicansPremier Health [facility] Hospital North Albumin [Mass/volume] in Serum or PlasmaOrdered By: Milo Watters on 12-17-2021 Albumin [Mass/Vol]3.4 g/dL3.2-5.5Fire[facility] Medical CenterAutomated erythrocytes count in urine sediment (number/area)Ordered By: Milo Watters on 40-66-1207TEE Auto (Urine sed) [#/Area]3-4 [HPF]0-4FRegency Hospital Cleveland EastAutomated leukocytes count in urine sediment (number/area)Ordered By: Milo Watters on 74-92-6425FXE Auto (Urine sed) [#/Area]50-100 [HPF]0-4FRegency Hospital Cleveland EastAutomated urine hyaline casts count (number/volume) Ordered By: Milo Watters on 73-73-9606Noaftjx casts Auto (U) [#/Vol]None seen [LPF]0-1FRegency Hospital Cleveland EastBasophils Auto (Bld) [#/Vol]Ordered By: Milo Watters on 89-49-1770Opdsioulj (Bld) [#/Vol]0.1 10*3/uL0.0-0.2FRegency Hospital Cleveland EastBasophils/100 WBC Auto (Bld)Ordered By: Milo Watters on 23-47-4051Efkebnssk/100 WBC (Bld)0.5 %.[facility] Bilirubin Test strip Ql (U)Ordered By: Milo Watters on 72-81-9194Avqsiirnr Ql (U)NegativeNegativePremier Health Miami [facility] Hospital NorthBlood hemoglobin measurement (mass/volume)Ordered By: Milo Watters on 92-40-7037Mmzisgumiy (Bld) [Mass/Vol] 16.1 g/dL11.8-15.4FRegency Hospital Cleveland EastBlood leukocytes automated count (number/volume)Ordered By: Milo Watters on 05-14-0068SKE (Bld) [#/Vol] 10.7 10*3/uL4.5-11.0[facility] NorthCast typing in urine sediment by light microscopyOrdered By: Milo Watters on 80-15-0904Sbpeb LM Nom (Urine sed)None seen [LPF]None SeenPremier Health Miami Valley Hospital NorthColor Auto (U)Ordered By: Milo Watters on 37-99-1341Mmyvw (U)YellowYellowPremier Health Miami [facility] Hospital NorthCreatinine and Glomerular filtration rate.predicted panel (S/P/Bld)Ordered By: Milo Watters on 36-20-5357Xcukaxisor [Mass/Vol]0.89 mg/dL 0.44-1.03[facility] NorthEosinophils Auto (Bld) [#/Vol]Ordered By: Milo Watters on 53-37-6222Pmjqviqjcrd (Bld) [#/Vol]0.1 10*3/uL0.0-0.45 [facility] NorthEosinophils/100 WBC Auto (Bld)Ordered By: Milo Watters on 87-38-2841Hloooznvrrz/100 WBC (Bld)1.0 %.[facility] NorthErythrocyte distribution width Auto (RBC) [Ratio]Ordered By: Milo Watters on 76-48-0219Eaaqgkpoxzp distribution width (RBC) [Ratio]13.1 % 11.9-15.3FRegency Hospital Cleveland EastEstimated glomerular filtration rate (GFR) non- AmericanOrdered By: Milo Watters on 34-67-5246MXQ/1.73 sq M.predicted among non-blacks MDRD (S/P/Bld) [Vol rate/Area]> 60 mL/MinPremier Health Miami Valley Hospital NorthGlobulin Calc (S) [Mass/Vol]Ordered By: Milo Watters on 99-77-1068Fsbycjtp (S) [Mass/Vol]3.9 g/dLPremier Health Miami Valley Hospital North Hematocrit Auto (Bld) [Volume fraction]Ordered By: Milo Watters on 12-17-2021 Hematocrit (Bld) [Volume fraction]48.5 %34.0-46.4FRegency Hospital Cleveland EastKetones Auto test strip (U) [Mass/Vol]Ordered By: Milo Watters on 26-66-9364Icysngq (U) [Mass/Vol]NegativeNegativePremier Health Miami Valley Hospital NorthLaboratory - Hematology and Cell countsOrdered By: Milo Watters on 11-15-3843Zkrlibvlj RBC/100 WBC (Bld) [Ratio]0.1 %0-0.5FRegency Hospital Cleveland EastLymphocytes Auto (Bld) [#/Vol]Ordered By: Milo Watters on 94-90-8522Ptsdhohvkck (Bld) [#/Vol]1.5 10*3/uL1.00-4.8Fire[facility] Regional Medical CenterLymphocytes/100 WBC Auto (Bld)Ordered By: Milo Watters on 12-17-2021 Lymphocytes/100 WBC (Bld)14.2 %.[facility] OhioH Auto (RBC) [Entitic mass]Ordered By: Milo Watters on 04-05-2904VUE (RBC) [Entitic mass] 31.4 pg24.7-34.3FRegency Hospital Cleveland EastMCHC Auto (RBC) [Mass/Vol] Ordered By: Milo Watters on 40-43-9420NVGP (RBC) [Mass/Vol]33.2 g/dL32.0-35.0 [facility] NorthMCV Auto (RBC) [Entitic vol]Ordered By: Milo Watters on 50-01-3997ISR (RBC) [Entitic vol]94.6 uM42-734UdaratqshPremier Health Miami Valley Hospital NorthMonocytes Auto (Bld) [#/Vol]Ordered By: Milo Watters on 98-59-0146Imzmklsrj (Bld) [#/Vol]0.8 10*3/uL0.0-0.8[facility] NorthMonocytes/100 WBC Auto (Bld)Ordered By: Milo Watters on 12-17-2021 Monocytes/100 WBC (Bld)7.5 %.[facility] NorthNeutrophils Auto (Bld) [#/Vol]Ordered By: Milo Watters on 13-40-1927Jkpqniptonp (Bld) [#/Vol]8.2 10*3/uL1.8-7.7FRegency Hospital Cleveland EastNeutrophils/100 WBC Auto (Bld) Ordered By: Milo Watters on 58-24-4281Ujuvoayjpsm/100 WBC (Bld)76.8 %.[facility] NorthNitrite Test strip Ql (U)Ordered By: Milo Watters on 06-47-3796Prfosxj Ql (U)NegativeNegativePremier Health Miami Valley Hospital NorthNo Panel InformationOrdered By: Milo Watters on 47-68-4729Szmiiigti GFR ()> 60 mL/MinPremier Health Miami Valley Hospital NorthComment on above:GFR estimated reference range: According to KDOQI guidelines, <60 ml/min/1.73m2 is sufficient todiagnose a patient with chronic kidney disease.Pharmacy Creatinine Clearance (Chem70.55[facility] NorthPlatelet mean volume Auto (Bld) [Entitic vol]Ordered By: Milo Watters on 03-36-4533Vgnpuztn mean volume (Bld) [Entitic vol]8.7 fL6.3-10.7FRegency Hospital Cleveland EastPlatelets Auto (Bld) [#/Vol]Ordered By: Milo Watters on 87-88-3470Tpxahpyxi (Bld) [#/Vol]239 10*3/uV708-622SvfrslnymPremier Health [facility] NorthProtein Auto test strip (U) [Mass/Vol]Ordered By: Milo Watters on 83-91-6099Msbzobm (U) [Mass/Vol]Trace mg/dLNegativePremier Health Miami Valley Hospital NorthProtein [Mass/volume] in Serum or PlasmaOrdered By: Milo Watters on 93-76-8198Awcvnae [Mass/Vol]7.3 g/dL6.1-7.9 [facility] NorthRBC Auto (Bld) [#/Vol]Ordered By: Milo Watters on 65-99-8799VKB (Bld) [#/Vol]5.13 10*6/uL3.60-5.00[facility]innatierum or plasma alanine aminotransferase measurement without P-5'-P (enzymatic activiOrdered By: Milo Watters on 03-48-5156FNZ No additional P-5'-P [Catalytic activity/Vol]38 U/M32-76WdwqemmspSelect Medical Specialty Hospital - Cincinnatierum or plasma albumin/globulin mass ratioOrdered By: Milo Watters on 12-17-2021 Albumin/Globulin [Mass ratio]0.9 {ratio}[facility]atierum or plasma alkaline phosphatase measurement (enzymatic activity/volume)Ordered By: Milo Watters on 70-08-2724BQQ [Catalytic activity/Vol]109 U/Q29-64XivfzyssnSelect Medical Specialty Hospital - Cincinnatierum or plasma aspartate aminotransferase measurement (enzymatic activity/volume)Ordered By: Milo Watters on 15-42-4212BQC [Catalytic activity/Vol]43 U/A89-13VztnbmhnpSelect Medical Specialty Hospital - Cincinnatierum or plasma calcium measurement (mass/volume)Ordered By: Milo Watters on 00-41-7362Ugtorgb [Mass/Vol]10.0 mg/dL8.2-10.2FCleveland Clinic Fairview Hospitalerum or plasma chloride measurement (moles/volume)Ordered By: Milo Watters on 12-17-2021 Chloride [Moles/Vol]102 mmol/E43-650TpwkvabvjSelect Medical Specialty Hospital - Cincinnatierum or plasma glucose measurement (mass/volume)Ordered By: Milo Watters on 12-17-2021 Glucose [Mass/Vol]231 mg/bV30-155TsgddpbvrPremier Health [facility] Hospital NorthComment on above:ADA recommended reference range Random Glucose Reference Range is dependent on time and content of last meal. Glucose of more than 200 mg/dL in a nonstressed, ambulatory subject supports the diagnosis of Diabetes Mellitus.Serum or plasma potassium measurement (moles/volume)Ordered By: OSORIO WHITE on 86-50-4413Qnqxeaije [Moles/Vol]3.6 mmol/L3.5-5.1FCleveland Clinic Fairview Hospitalerum or plasma sodium measurement (moles/volume)Ordered By: Milo Watters on 75-27-7484Iwakhq [Moles/Vol]137 mmol/B360-198OdusnmenqSelect Medical Specialty Hospital - Cincinnatierum or plasma total bilirubin measurement (mass/volume)Ordered By: Milo Watters on 12-23-8510Wekotgpvd [Mass/Vol]0.8 mg/dL0.3-1.2FCleveland Clinic Fairview Hospitalerum or plasma total carbon dioxide measurement (moles/volume)Ordered By: Milo Watters on 22-35-5256YF5 [Moles/Vol]24.6 mmol/L22.0-30.0[facility] Serum or plasma urea nitrogen measurement (mass/volume)Ordered By: Milo Watters on 27-06-0997Qvtb nitrogen [Mass/Vol]8 mg/dL9-23[facility] - Cincinnatipecific gravity Auto test strip (U) [Rel density]Ordered By: Milo Watters on 39-04-4032Wmjcedvo gravity (U) [Rel density]1.0301.001-1.030[facility] Cincinnatiquamous epithelial cells detection in urine sediment by light microscopyOrdered By: Milo Watters on 57-99-3106Rjbjsgfsyd cells.squamous LM Ql (Urine sed)None seen [HPF]0-2FRegency Hospital Cleveland EastUrine bacteria detection by automated methodOrdered By: Milo Watters on 12-17-2021 Bacteria Auto Ql (U)RareNone SeenPremier Health Miami Valley Hospital NorthUrine clarity by refractometry automatedOrdered By: Milo Watters on 83-23-0507Ngwwpia Refractometry automated (U)ClearClearFRegency Hospital Cleveland EastUrine glucose measurement by automated test strip (mass/volume)Ordered By: Milo Watters on 52-89-9689Vmtdnwc Auto test strip (U) [Mass/Vol]>=1000 mg/dLNormParkwood HospitalUrine hemoglobin detection by automated test stripOrdered By: Milo Watters on 70-98-0523Nyfkoskwyw Auto test strip Ql (U)1+ NegativePremier Health Miami Valley Hospital NorthUrine leukocyte esterase detection by automated test stripOrdered By: Milo Watters on 70-27-7437Mndzemwom esterase Auto test strip Ql (U)3+NegativePremier Health Miami Valley Hospital NorthUrobilinogen Auto test strip (U) [Mass/Vol]Ordered By: Milo Watters on 12-17-2021 Urobilinogen (U) [Mass/Vol]Normal mg/dLNoKettering Memorial Hospital Yeast detection in urine sediment by light microscopyOrdered By: Milo Watters on 76-96-4682Jzzfe LM Ql (Urine sed)3+ [HPF]None SeenPremier Health Miami Valley Hospital NorthpH Auto test strip (U)Ordered By: Milo Watters on 38-22-6738nG (U)6.0 [pH]5.0-9.0[facility] NorthBacterial blood cultureOrdered By: Arleen Stephen on 34-88-7559Nztbmvah identified Cx Nom (Bld)NO GROWTH 5 DAYS [facility] NorthBasophils Auto (Bld) [#/Vol]Ordered By: Walter Montgomery on 35-72-7863Kjpvvnmnv (Bld) [#/Vol]0.0 10*3/uL0.0-0.2FRegency Hospital Cleveland EastBasophils/100 WBC Auto (Bld)Ordered By: Walter Montgomery on 12-13-2021 Basophils/100 WBC (Bld)0.1 %.[facility] NorthBlood hemoglobin measurement (mass/volume)Ordered By: Walter Montgomery on 02-52-0452Fqoschpudx (Bld) [Mass/Vol]14.2 g/dL11.8-15.4FRegency Hospital Cleveland EastBlood leukocytes automated count (number/volume)Ordered By: Walter Montgomery on 35-53-0455ECI (Bld) [#/Vol]9.4 10*3/uL4.5-11.0[facility] NorthConsultation Noteon 14-24-8671Drxiiyrqgxld [id number]#1.00CD:127 NormalUniversity Hospitals Portage Medical CenterCreatinine and Glomerular filtration rate.predicted panel (S/P/Bld)Ordered By: Walter Montgomery on 20-80-3954Byagttjnhm [Mass/Vol]0.75 mg/dL0.44-1.03[facility] NorthDirect bilirubin measurementOrdered By: Walter Montgomery on 44-37-9957Sknevzzbz.direct [Mass/Vol]0.2 mg/dL0.0-0.4FRegency Hospital Cleveland EastEosinophils Auto (Bld) [#/Vol] Ordered By: Walter Montgomery on 96-38-2451Svybucrfqoo (Bld) [#/Vol]0.0 10*3/uL 0.0-0.45[facility] NorthEosinophils/100 WBC Auto (Bld)Ordered By: Walter Montgomery on 60-56-7086Bzqkgokncqi/100 WBC (Bld)0.0 %.[facility] NorthErythrocyte distribution width Auto (RBC) [Ratio]Ordered By: Walter Montgomery on 03-89-6943Dzmqdksoqrf distribution width (RBC) [Ratio]12.9 %11.9-15.3 [facility] NorthEstimated glomerular filtration rate (GFR) non- AmericanOrdered By: Walter Montgomery on 57-93-1209JOL/1.73 sq M.predicted among non-blacks MDRD (S/P/Bld) [Vol rate/Area]> 60 mL/MinPremier Health Miami Valley Hospital NorthGlucose Glucometer (BldC) [Mass/Vol]Ordered By: Wilmer Vance on 47-31-6091Waqhuqg [Mass/Vol]230 mg/dLPremier Health Miami Valley Hospital NorthComment on above:Random Glucose Reference Range is dependent on time and content of last meal. Glucose of more than 200 mg/dL in a nonstressed, ambulatory subject supports the diagnosis of Diabetes Mellitus.Hematocrit Auto (Bld) [Volume fraction]Ordered By: Walter Montgomery on 70-58-7910Qvrubhezpk (Bld) [Volume fraction] 41.9 %34.0-46.4FRegency Hospital Cleveland EastLaboratory - Hematology and Cell countsOrdered By: Walter Montgomery on 10-03-5022Ndkaeqxeq RBC/100 WBC (Bld) [Ratio] 0.0 %0-0.5FRegency Hospital Cleveland EastLymphocytes Auto (Bld) [#/Vol]Ordered By: Walter Montgomery on 40-14-1933Giceqxzuuru (Bld) [#/Vol]0.7 10*3/uL1.00-4.8 [facility] NorthLymphocytes/100 WBC Auto (Bld)Ordered By: Walter Montgomery on 72-04-5860Cpaoklfmeum/100 WBC (Bld)7.7 %.[facility] Auto (RBC) [Entitic mass]Ordered By: Walter Montgomery on 90-79-1343OBL (RBC) [Entitic mass]32.2 pg24.7-34.3FRegency Hospital Cleveland EastHC Auto (RBC) [Mass/Vol]Ordered By: Walter Montgomery on 32-80-4311VZLG (RBC) [Mass/Vol]33.9 g/dL32.0-35.0[facility] NorthMCV Auto (RBC) [Entitic vol] Ordered By: Walter Montgomery on 37-78-6266NDM (RBC) [Entitic vol]95.1 zA49-582 [facility] NorthMonocytes Auto (Bld) [#/Vol]Ordered By: Walter Montgomery on 64-38-3318Fynqirmai (Bld) [#/Vol]0.2 10*3/uL0.0-0.8[facility] NorthMonocytes/100 WBC Auto (Bld)Ordered By: Walter Montgomery on 12-13-2021 Monocytes/100 WBC (Bld)1.8 %.[facility] NorthNeutrophils Auto (Bld) [#/Vol]Ordered By: Walter Montgomery on 57-69-0150Qhkykrdedhm (Bld) [#/Vol]8.5 10*3/uL1.8-7.7FRegency Hospital Cleveland EastNeutrophils/100 WBC Auto (Bld) Ordered By: Walter Montgomery on 97-63-6165Beshritjirm/100 WBC (Bld)90.4 %.[facility] NorthNo Panel InformationOrdered By: Walter Montgomery on 12-13-2021 Estimated GFR ()> 60 mL/MinPremier Health Miami Valley Hospital North Comment on above:GFR estimated reference range: According to KDOQI guidelines, <60 ml/min/1.73m2 is sufficient todiagnose a patient with chronic kidney disease.Pharmacy Creatinine Clearance (Chem84.79[facility] NorthPlatelet mean volume Auto (Bld) [Entitic vol]Ordered By: Walter Montgomery on 47-97-3282Jlmmngxt mean volume (Bld) [Entitic vol]9.3 fL6.3-10.7FRegency Hospital Cleveland EastPlatelets Auto (Bld) [#/Vol]Ordered By: Walter Montgomery on 66-86-4284Efhisrqew (Bld) [#/Vol]178 10*3/uY376-502CzpdpcabcPremier Health Miami Valley Hospital NorthRBC Auto (Bld) [#/Vol]Ordered By: Walter Montgomery on 69-17-6181QJA (Bld) [#/Vol]4.41 10*6/uL3.60-5.00[facility] Cincinnatierum or plasma chloride measurement (moles/volume)Ordered By: Walter Montgomery on 52-12-9808Xvqmisvk [Moles/Vol]105 mmol/V28-386RyeepewwuSelect Medical Specialty Hospital - Cincinnatierum or plasma non-glucuronidated bilirubin measurement (mass/volume)Ordered By: Walter Montgomery on 94-00-8182Oivxtyvpr.indirect [Mass/Vol]0.5 mg/dLSelect Medical Specialty Hospital - Cincinnatierum or plasma potassium measurement (moles/volume)Ordered By: Walter Montgomery on 64-18-2102Bbkmmuuup [Moles/Vol]4.4 mmol/L3.5-5.1FCleveland Clinic Fairview Hospitalerum or plasma sodium measurement (moles/volume)Ordered By: Walter Montgomery on 68-89-3508Nlbtyh [Moles/Vol]137 mmol/N445-147YfpirxhviSelect Medical Specialty Hospital - Cincinnatierum or plasma total bilirubin measurement (mass/volume)Ordered By: Walter Montgomery on 74-35-3806Eftlxpmmp [Mass/Vol]0.7 mg/dL0.3-1.2FCleveland Clinic Fairview Hospitalerum or plasma total carbon dioxide measurement (moles/volume)Ordered By: Walter Montgomery on 19-71-6127QX5 [Moles/Vol]24.6 mmol/L 22.0-30.0[facility] Cincinnatierum or plasma urea nitrogen measurement (mass/volume)Ordered By: Walter Montgomery on 00-69-8266Mglb nitrogen [Mass/Vol]12 mg/dL9-23[facility] NorthActivated partial thromboplastin time (aPTT) in platelet poor plasma by coagulation aOrdered By: Walter Montgomery on 06-09-5830wPST Coag (PPP) [Time]30.0 s25.1-36.5FRegency Hospital Cleveland EastLaboratory - CoagulationOrdered By: Walter Montgomery on 98-84-2054SB Coag (PPP) [Time]14.1 s9.0-12.9[facility] NorthPlatelet poor plasma international normalized ratio (INR) by coagulation assay (relatOrdered By: Walter Montgomery on 83-58-7047CID Coag (PPP) [Relative time]1.3 {INR}[facility] NorthComment on above:INR Therapeutic Range A) Pre- and Peroperative OAT started two weeks before surgery. NOT HIP SURGERY: 1.5 - 2.5 HIP SURGERY: 2 - 3 B) Primary and secondary prevention of venous THROMBOSIS: 2 - 3 C) Active venous thrombosis, pulmonary embolism and prevention of recurrent venous thrombosis: 2 - 3 D) Prevention of arterial thromboembolism including patients with mechanical heart valves: 3 - 4.5Serum or plasma alkaline phosphatase measurement (enzymatic activity/volume)Ordered By: Walter Montgomery on 14-69-8471IWD [Catalytic activity/Vol]92 U/E06-45FwtejwkmcSelect Medical Specialty Hospital - Cincinnatierum or plasma aspartate aminotransferase measurement (enzymatic activity/volume)Ordered By: Walter Montgomery on 61-25-2324EIH [Catalytic activity/Vol]22 U/O86-10TyrrqrducPremier Health Miami Valley Hospital NorthAlbumin [Mass/volume] in Serum or PlasmaOrdered By: Arleen Stephen on 05-52-8035Kajfywz [Mass/Vol]2.9 g/dL3.2-5.5FRegency Hospital Cleveland EastGlobulin Calc (S) [Mass/Vol]Ordered By: Arleen Stephen on 92-35-9748Pzonjgfg (S) [Mass/Vol]3.0 g/dLPremier Health Miami Valley Hospital NorthNo Panel InformationOrdered By: Arleen Stephen on 03-86-1854Bgceutg Glucose CommentGlu2: cleaned meterPremier Health Miami Valley Hospital NorthProtein [Mass/volume] in Serum or PlasmaOrdered By: Arleen Stephen on 42-87-9195Kjxamdr [Mass/Vol]5.9 g/dL6.1-7.9[facility] Cincinnatierum or plasma alanine aminotransferase measurement without P-5'-P (enzymatic activiOrdered By: Arleen Stephen on 02-98-4064TSW No additional P-5'-P [Catalytic activity/Vol]16 U/S49-94FxcbyuoukSelect Medical Specialty Hospital - Cincinnatierum or plasma albumin/globulin mass ratioOrdered By: Arleen Stephen on 24-30-2033Bggxpgi/Globulin [Mass ratio]1.0 {ratio}[facility] Cincinnatierum or plasma calcium measurement (mass/volume)Ordered By: Arleen Stephen on 19-92-7884Vlkjzex [Mass/Vol]9.2 mg/dL 8.2-10.2FCleveland Clinic Fairview Hospitalerum or plasma glucose measurement (mass/volume)Ordered By: Arleen Stephen on 48-43-5411Revlxvr [Mass/Vol]204 mg/dL 70-100Prem[facility] NorthComment on above:ADA recommended reference range Random Glucose Reference Range is dependent on time and content of last meal. Glucose of more than 200 mg/dL in a nonstressed, ambulatory subject supports the diagnosis of Diabetes Mellitus.Urine culture routineOrdered By: Tray Randle on 63-78-5878Bebxqald identified Cx Nom (U)Escherichia coliPremier Health Miami Valley Hospital NorthAutomated erythrocytes count in urine sediment (number/area)Ordered By: Tray Randle on 43-19-7103QIJ Auto (Urine sed) [#/Area]5-9 [HPF]0-4FRegency Hospital Cleveland EastAutomated leukocytes count in urine sediment (number/area)Ordered By: Tray Randle on 62-48-3719EZZ Auto (Urine sed) [#/Area]50-100 [HPF]0-4FRegency Hospital Cleveland East Automated urine hyaline casts count (number/volume)Ordered By: Tray Rosey on 44-48-1092Gyvliph casts Auto (U) [#/Vol]None seen [LPF]0-1FRegency Hospital Cleveland EastBilirubin Test strip Ql (U)Ordered By: Tray Morrisarthy on 72-92-0713Cfeztmysl Ql (U)NegativeNegSelect Medical Specialty Hospital - [facility]ron COVID-19 Positive/NegativeOrdered By: Trayumu Randle on 32-83-9306ABSM-CoV-2 (COVID-19) N gene TEJINDER+probe Ql (Resp)NegativeNegSelect Medical Specialty Hospital - AkronComment on above:Testing for SARS-CoV-2 by RT-PCR This test was developed and its performance characteristics determined by [employer] ([employer]) and validated at the [facility]. This test has not been FDA cleared [...] of time the declaration that circumstances exist ju stifying the authorization of the emergency use of in vitro diagnostic tests for detection of SARS-CoV-2 virus and/or diagnosis of COVID-19 infection under section 564(b)(1) of the Act, 21 U.S.C. 360bbb-3(b)(1), unless the authorization is terminated or revoked sooner.COVID-19 SOFIAOrdered By: Tray Randle on 32-63-7082LMCV-CoV+SARS-CoV-2 (COVID-19) Ag IA.rapid Ql (Resp)NegativeNegative [facility] NorthComment on above:This is a duplicate Molly SARS Antigen (ANUP) result to be used for statistical tracking purpose only.Casts typing in urine sediment by light microscopyOrdered By: Tray Randle on 38-00-0733Svfky LM Nom (Urine sed)None seen [LPF]None SeenPremier Health Miami Valley Hospital NorthColor Auto (U)Ordered By: Tray Randle on 08-23-4445Otbad (U) YellowYellowPremier Health Miami Valley Hospital NorthKetones Auto test strip (U) [Mass/Vol]Ordered By: Tray Randle on 31-18-1307Ltcvjex (U) [Mass/Vol] NegativeNegativePremier Health Miami Valley Hospital NorthNitrite Test strip Ql (U) Ordered By: Tray Randle on 95-81-7678Qiqaahk Ql (U)PositiveNegative [facility] NorthNo Panel InformationOrdered By: Tray Randle on 88-91-6417ELFJ Antigen (LFIA)[facility] Protein Auto test strip (U) [Mass/Vol]Ordered By: Tray Randle on 12-09-2021 Protein (U) [Mass/Vol]NegativeNegativeSelect Medical Specialty Hospital - Cincinnatipecific gravity Auto test strip (U) [Rel density]Ordered By: Tray Randle on 94-16-9219Hnkjshfx gravity (U) [Rel density]1.0301.001-1.030[facility] - Cincinnatiquamous epithelial cells detection in urine sediment by light microscopyOrdered By: Tray Randle on 86-77-8079Wqmrhrbyvx cells.squamous LM Ql (Urine sed)10-19 [HPF]0-2FRegency Hospital Cleveland EastTroponin I.cardiac [Mass/volume] in Serum or Plasma by High sensitivity methodOrdered By: Arleen Stephen on 03-79-4052Mhthmcuo I.cardiac High sensitivity method [Mass/Vol]5 pg/mL 0-15[facility] NorthUrine bacteria detection by automated methodOrdered By: Tray Randle on 45-84-3739Htutysge Auto Ql (U)4+None Seen [facility] NorthUrine clarity by refractometry automatedOrdered By: Tray Randle on 41-88-8414Hmmufsq Refractometry automated (U)Cloudy ClearPremier Health Miami Valley Hospital NorthUrine glucose measurement by automated test strip (mass/volume)Ordered By: Tray Randle on 50-70-0679Xcasztm Auto test strip (U) [Mass/Vol]>=1000 mg/dLNoKettering Memorial Hospital Urine hemoglobin detection by automated test stripOrdered By: Tray Randle on 03-38-8296Bcoufhiuqe Auto test strip Ql (U)TraceNegativePremier Health Miami Valley Hospital NorthUrine lactic acid measurementOrdered By: Arleen Stephen on 96-65-9705Ntgjwsd (U) [Moles/Vol]1.7 mmol/L0.5-2.2FRegency Hospital Cleveland EastUrine leukocyte esterase detection by automated test stripOrdered By: Tray Randle on 28-47-1052Aomiszcws esterase Auto test strip Ql (U)2+ NegativePremier Health Miami Valley Hospital NorthUrobilinogen Auto test strip (U) [Mass/Vol]Ordered By: Tray Randle on 48-93-3783Trsdmwpfrmmz (U) [Mass/Vol] Normal mg/dLNoKettering Memorial HospitalpH Auto test strip (U)Ordered By: Tray Randle on 02-31-6532pN (U)5.5 [pH]5.0-9.0[facility] NorthA1C HEMOGLOBINon 07-29-1355HaI9z (Bld) [Mass fraction]7.5 %[facility] Other HbA1c (Bld) [Mass fraction]on 01-87-1424H8R HEMOGLOBIN [facility] Other a1c HEMOGLOBINon 32-43-2386HaR1l (Bld) [Mass fraction] 6 %[facility] Other Glucose - FINGER STICKon 41-69-4072Bmnfrsr [Mass/Vol] 150 mg/dLNort [facility] Other HbA1c (Bld) [Mass fraction]on 40-21-3391P1W HEMOGLOBIN [facility] Other A1C HEMOGLOBINon 46-21-1896CuC1x (Bld) [Mass fraction] 6.9 %[facility] Other Glucose - FINGER STICKon 55-15-2137Wvuzifu [Mass/Vol] 244 mg/dLNort [facility] Other HbA1c (Bld) [Mass fraction]on 04-37-5583H4H HEMOGLOBIN [facility] Other PROGRESSon 12-09-7933KSTBVYORUAJ ID: [id number] Author: Clyde ([facility]) Armand Service: ? Author Type: Nurse Practitioner [...] RTC to see Nov 1 at [facility], to ensure complete healing, and further discuss plan of care re pathology results. - call office prn for issues/concerns Clyde Hall APRN.[facility] 70-75-5249PJGUVzqong Visit (GYNML) LAVINIA GAYDY ([id number]) 1955 F Date Time Provider Department 02/11/19 2:30 PM CLYDE HALL ([facility]) GYN During your visit today, we recorded the following information about you: Temperature Pulse Blood pressure Weight 98.7 degrees 99/minute 124/67 93.3 kg Clyde Hall APRN.L[employer]OGRAPHIC PLATE MAKER APPRENTICE 02/12/2019 12:57 PM Signed Taye presents for [...] RTC to see Nov 1 at [facility], to ensure complete healing, and further discuss plan of care re pathology results. - call office prn for issues/concerns Clyde Hall, NITZA.LITHOGRAPHIC PLATE MAKER APPRENTICE Referring Provider: THEO JOAQUIN [[id number]] Allergies As of Date: 02/11/2019 Noted Allergy [...] Encounter Status:Closed by CLYDE HALL CNP on 02/12/19[facility] 91-12-6006BNZHFxvymw Visit (GYNML) TAYE GAY ([id number]) 1955 F Date Time Provider Department 01/21/19 10:45 AM THEO JOAQUIN GYN During your visit today, we recorded the following information about you: Temperature Pulse Blood pressure Weight 98.6 degrees 94/minute 111/52 91.4 kg Theo Joaquin MD 01/22/2019 2:06 PM Signed Gynecologic Oncology [facility] Re: Taye Gay CCF#:[id number] 01/21/2019 Dear Linwood Irwin: Taye presents for post op follow up. [...] of this office note were sent to: Linwood Irwin MD (DrC) [address] [address] CC: Jonas Yoder MD (PCP) Referring Provider: THEO JOAQUIN [[id number]] Allergies As of Date: 01/21/2019 Noted Allergy [...] Encounter Status:Closed by THEO JOAQUIN MD on 01/22/19[facility] PROGRESSon 74-72-1610DEZJTGDVEGF ID: [id number] Author: Theo Joaquin Service: ? Author Type: Physician Type: Progress Notes Filed: 01/22/2019 2:06 PM Note Text: Gynecologic Oncology [facility] Re: Taye Gay CCF#:[id number] 01/21/2019 Dear Linwood Irwin: Taye presents for post op follow up. [...] of this office note were sent to: Linwood Irwin MD (DrC) [facility] [address] [address] CC: Jonas Yoder MD (PCP)[facility] 25-64-5238ZBTM Office Visit (GYNML) TAYE GAY ([id number]) 1955 F Date Time Provider Department 01/07/19 8:30 AM THEO JOAQUIN During your visit today, we recorded the following information about you: Temperature Pulse Blood pressure Weight 98.4 degrees 124/minute 103/53 90.2 kg Theo Joaquin MD 01/10/2019 11:17 PM Signed Gynecologic Oncology [facility] Re: Taye Gay CCF#:[id number] 01/07/2019 Dear Linwood Irwin: Taye presents for post op follow up. [...] of this office note were sent to: Linwood Irwin MD (DrC) [facility] [address] [address] CC: Jonas Yoder MD (PCP) Referring Provider: THEO JOAQUIN [[id number]] Allergies As of Date: 01/07/2019 Noted Allergy Reaction SULFA (SULFONAMIDE ANTIBIOTICS) 2018 11 - Vomiting Date Reviewed: 01/01/2019 Reviewed by: Zack Fernandez (Rn) BRENDA Murry - Fully Assessed [...] Encounter Status:Closed by THEO JOAQUIN MD on 01/10/19[facility] 37-75-5959TQWONpwlbmajm (GYNML) TAYE GAY ([id number]) 1955 F Date Time Provider Department 01/06/19 [...] Appointment made with Dr. Joaquin 01/07 @ 7462 for wound check Patient verbalized understanding and agrees to plan Shantel Reynoso RN Allergies As of Date: 01/06/2019 Noted Allergy Reaction SULFA (SULFONAMIDE ANTIBIOTICS) 2018 11 - Vomiting Date Reviewed: 01/01/2019 Reviewed by: Zack Fernandez (Rn) BRENDA Murry - Fully Assessed [...] More... Encounter Status:Closed by SHANTEL REYNOSO on 01/06/19[facility] PROGRESSon 10-51-4078ZYAQOWOTPQD ID: [id number] Author: Theo Joaquin Service: ? Author Type: Physician Type: Progress Notes Filed: 01/10/2019 11:17 PM Note Text: Gynecologic Oncology [facility] Re: Taye Hollyaton CC#:[id number] 01/07/2019 Dear Linwood Irwin: Taye presents for post op follow up. [...] of this office note were sent to: Linwood Irwin MD (DrC) [address] [place] [id number] CC: Jonas Yoder MD (PCP)[facility] HospitalANES Yousuf [id number] POSTHNO ID: [id number] Author: Katharina Durham Service: Anesthesiology Author Type: [...] January 01, 2019 TIME: 9:45 AM PAGER/CONTACT #:[facility] PREOPon [id number] PREOPHNO ID: [id number] Author: Katharina Durham Service: Anesthesiology Author Type: [...] for 7 days Inpatient medications reviewed in [facility]. I have interviewed and examined the [...] January 01, 2019 TIME: 7:35 AM PAGER/CONTACT #:[facility] PHYSICAL [id number] PHYSICALHNO ID: [id number] Author: Petty Shahid (Fel) Service: Gynecology Oncology [...] DATE: January 01, 2019 TIME: 7:16 AM PAGER:[facility] HospitalOPERATIVE NOon [id number] NO HNO ID: [id number] Author: Theo Joaquin Service: Gynecology Oncology Author Type: Physician Type: Operative Report Filed: 01/17/2019 7:16 PM Note Text: OPERATIVE/PROCEDURE REPORT LOG ID: [id number] SURGERY/PROCEDURE DATE: 01/01/2019 INCISION/PROCEDURE START TIME: 8:11 AM INCISION CLOSE/PROCEDURE END TIME: 8:34 AM SURGEON(S)/PROCEDURALIST(S) AND PARACHUTE 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 SUPERVISOR(S): Surgeon(s) and Role: * Theo Joaquin - [...] January 03, 2019 TIME: 2:24 PM PAGER/CONTACT #:[facility] EDon [id number] EDHNO ID: [id number] Author: Patty GalvinRnOziel Bernal RN Service: Nursing Author Type: Registered [...] TO PATIENT: flavia bath Electronically Signed By: Daryl [facility]Saint [facility] EDHNO ID: [id number] Author: Zack GalvinRnOziel Murry RN Service: Nursing Author Type: [...] None REFERRAL (RECOMMENDATION): None Electronically Signed By: Zack Murry RNTempleton Developmental Center EDHNO ID: [id number] Author: Jelly (Rn) BRENDA Simmons Service: Nursing [...] (RECOMMENDATION): None Electronically Signed By: Jelly Simmons [facility]NN[facility] PATHOLOGYon 78-78-7511GVQGIPQT PATHOLOGYSpecimen originated from [facility] Specimen #: [id number] Submitting Physician: THEO JOAQUIN MD FINAL DIAGNOSIS Vulva, excision - High-grade squamous [...] o'clock. EL/clay 01/01/2019 Gross examination performed at [facility], [address] [place] [address] Date of Report: 01/05/2019 Date of Procedure: 01/01/2019 Date of Receipt: 01/01/2019 Submitted by: THEO JOAQUIN MD Location: [facility] Diagnostic interpretation performed at [facility], [address] [place] [address]. [place] Number: [id number] [facility]'s [facility] Center PROarlette 22-67-6748HWMRCSU PROJACOBY ID: [id number] Author: Nataliya GalvinRnOziel Bell RN Service: Nursing Author Type: Registered [...] Nataliya Bell RN December 24, 2018 3:07 PMNormalClaremont HospitalConfirm Blood Typeon 12-17-2018 ABO/RH(D)PositiveNormalClaremont HospitalComment on above:Performed By: #### CONABO #### [place] [address] Ikjv and SCR (30D)on 89-68-1564ZPV/RH(D)PositiveNormalClaremont HospitalComment on above:Performed By: #### [id number] #### [place] [id number] 47-29-2631UFPFVybgoov:Taye Gay MRN: Height:5' 7 (1.702 m) Weight:200 [...] 51.2 % 12/17/2018 46.0 36.0 Progress Notes (MEDICAL TECHNOLOGIST CHEMISTRY [facility]): Aracelis Charles, RN, RN 12/22/2018 11:38 AM Signed Pre-op teaching Procedure: vulvar surgery Physician: Location: [facility]: [phone] Date AND Time: 01/01/19 MEDICAL CLEARANCE: No [...] Naprosyn(naproxen) Agrylin NSAIDS Pepto-Bismol Aleve Ecotrin Persantine [place] Excedrin Plaquenil Anacin Heparin Plavix Ascriptin Herbals [...] - IV pain medication after surgery, IV TUBE FITTER if ordered by MD, discharged home with a prescription for PO pain medication, pain management after surgery, side effects of pain medication (including constipation, dizziness, drowsiness, and medication interactions). DVT PROPHYLAXIS - Early ambulation, SCDs, injectable anticoagulants (heparin, lovenox, etc) RESPIRATORY - Incentive spirometer, coughing/deep breathing exercises, ambulation. RETURN TO WORK - As directed by physician, please send any FMLA papers to physician's racing secretary and handicapper. SYMPTOMS TO NOTIFY MD - Fever, chills, nausea, vomiting, increased or severe pain, heavy vaginal bleeding, foul smelling vaginal drainage, pain or swelling in extremities. URGENT SYMPTOMS - Call 911 or go to ER if any shortness of breath, difficulty breathing, or chest pain. HOW TO CONTACT PHYSICIAN - Physician's office phone number given to patient, if after hours patient instructed to call can reforming machine operator and ask for the doctor long term acute care registered nurse. Patient and family have phone number to call 24 hours/day. Patient Evaluation: Verbalizes understanding Patient and/or family express understanding of upcoming surgery and the operative process. Questions answered. Follow Up Plan: Follow up as needed Supplemental Material Given: Pre-operative teaching packet provided to the patient: INPATIENT/OUTPATIENT printed instructions; Post-operative instruction sheet, bowel prep instruction sheet For questions contact: office at [phone] Instructed By Daryl [facility] or plasma calcidiol measurement (mass/volume)on [id number]-dltrkmyalvxklm D3 [Mass/Vol] 32.8 ng/nJ38-994MloxtmrahPremier Health Miami [facility] Hospital NorthComment on above:VITAMIN D STATUS 25(OH)VITAMIN D RANGE (ng/mL) Deficient <20 Insufficient 20 to <50Tvzpsoraym79 to 100Reference: Sandra MF,Felisha SCANLON, Leon SHERWOOD, et al. Evaluation,treatment, and prevention of vitamin D deficiency; an Endocrine Society clinical practice guideline. JCEM. 2010; 96(7):1911-30.Vitamin B12 ser/plason 47-05-1530Uzfqykfpg (Vitamin B12) [Mass/Vol]446 pg/cZ288-564BvxpjzumvPremier Health Miami Valley Hospital NorthBASIC METABOLIC PANELon 13-48-5135Gpmfs gap11 mmol/L Normal0-19[facility] HospitalComment on above:Performed By: #### BMP ####[address] [place] [address]ZRK/Creatinine Ratio16.0 RATIONormal 8-21[facility] HospitalComment on above:Performed By: #### BMP ####[address] [place] [place] [address]Yvdutge6.1 mg/dLNormal8.5-10.4[facility] Comment on above:Performed By: #### BMP ####[address],[place], [place] [address]Cgfgfrzn47 mmol/EJylgle48-188Dfdk Health SystemComment on above:Performed By: #### BMP ####[address],[place], [place] [address]OM[address] mmol/QPbkwho32-76 [facility] SystemComment on above:Performed By: #### BMP ####[address],[place], [place] [address]Fsgkppqbhj0.5 mg/dLNormal0.4-1.6[facility] Comment on above:Performed By: #### BMP ####[address],[place], [place] [address]vPVP (MDRD)[facility] SystemComment on above:Result Comment: 134GFR ml/min/1.73m2 Stage -----90 160-89 230-59 315-29 4<15 5For -Americans, multiply EGFR result by 1.210Calculation not validated for patients under 18 years of age.Performed at [facility],[address],[place], [place] [address]Getzsqrpz By: #### BMP ####[address],[place], [place] [address]Zcnmfsp mass vlcp876 mg/eVTkpq00-10Xeov Health SystemComment on above:Performed By: #### BMP ####[address],[place], [place] [address]Qvhnyvkpw molar conc4.6 mmol/L Normal3.4-5.1LNov[facility] Health [facility] SystemComment on above:Performed By: #### BMP ####[address],[place], [place] [address]Evcfwx874 mmol/BIjgeid208-476Jwzy Health SystemComment on above:Performed By: #### BMP ####[address],[place], [place] [address]Eqte nitrogen8 mg/dLNormal8-25[facility] SystemComment on above:Performed By: #### BMP ####[address],[place], [place] [address]HVBdq 27-55-5564QULEKGVentricular Rate : 60 BPMAtrial Rate : 60 BPMP-R Interval : 166 msQRS Duration : 80 msQ-T Interval : 432 msQTC Calculation(Bezet) : 432 msCalculated P [place] : 63 degreesCalculated R [place] : 29 degreesCalculated T [place] : 35 degreesDiagnosis:Normal sinus rhythmNormal ECGNo previous ECGs cecy ilableConfirmed by Walter Slaughter ([id number]) on 05/16/2017 3:45:18 PMNSt. Peter's Health PartnersHEMOGLOBIN,HCTon 71-29-6165Giygkjkpcf (HCT)Rrug31-37Pcax[address] [place] [address] Comment on above:Result Comment: 49.3Performed at [facility],[address] [place], [place] [address]Ndrbydwgw By: #### HH ####[address] [place], [place] [address]Wpwbwbmxeo mass conc (Bld)16.9 g/tIEzbr14.0-15.0[facility] HospitalComment on above:Performed By: #### HH ####[address] [facility] [address] Operative Reporton 18-31-1921Nsshmhjxa ReportNoRockland Psychiatric CenterPOCT GLUCOSEon 47-13-9481Ibtzagf mass ipvj699 mg/qJQaqu07-92Kbnt34 Meyer StreetComment on above:Performed By: #### PCGL ####[facility], [place] [address]Euuraks mass oity021 mg/sEVjcf70-22Pteu42 Sanchez StreetComment on above: Performed By: #### PCGL ####Narayanan Mthi[address] Ave[place], [place] [address]Qdddjio mass ysko732 mg/eYRhuh72-54Yvru42 Sanchez StreetComment on above:Performed By: #### PCGL ####Narayanan Yogr048[address] AveWill[place], [place] [address]Adwcdvr mass zrwp010 mg/aMMzxb87-79Qdgf42 Sanchez StreetComment on above:Performed By: #### PCGL ####Narayanan Bkss[address] [place] [address] Vital Signs Date TimeVital SignValuePerforming ParnpfskfEaqnesub22-65-0459 12:41-0400Body mass index (BMI) [Ratio]30.38 kg/e0DcvkfjLinwood Irwin MD Work Phone: 1(040)[address] [place], [place] 6311110-14-2025 12:41-0400Body uravwz90 kg Linwood Irwin MD Work Phone: 1(732)[address] [place], [place] 6311110-14-2025 12:41-0400Diastolic blood uihvrajy07 mm[Hg]Linwood Irwin MD Work Phone: 1(320)[address] [place], [place] 6311110-14-2025 12:41-0400Systolic blood mm[Hg]Linwood Irwin MD Work Phone: 1(218)[address] [place], [place] 6311110-07-2025 13:19-0400Body hznsyt743.2 cmPpatti Irwin MD Work Phone: 1(248)[address] [place], [place] 6311110-07-2025 13:19-0400Body mass index (BMI) [Ratio]30.07 kg/p9YlihlsLinwood Irwin MD Work Phone: 1(716)[address] [place], [place] 6311110-07-2025 13:19-0400Body .09 kgLinwood Irwin MD Work Phone: 1(786)[address] [place], [place] 6311110-07-2025 13:19-0400Diastolic blood zdlldcim58 mm[Hg]Linwood Irwin MD Work Phone: 1(441)[address] [place], [place] 6311110-07-2025 13:19-0400Systolic blood rtphocpa053 mm[Hg]Linwood Irwin MD Work Phone: 1(528)[address] [place], [place] 6311109-23-2025 16:15-0400Body wlvamb289.2 cmOz Kincaid MD Work Phone: [facility]SmithvilleMilslbsuul08-97-3325 16:15-0400Body mass index (BMI) [Ratio]30.54 kg/m2Oz Kincaid MD Work Phone: 1(177)577-[address] [place], [place] [address]Dlonhbaufk25-26-0553 16:15-0400Body waaglr09.45 kgOz Kincaid MD Work Phone: 1(719)782-[address] [place] [address]-16-2025 14:23-0400Body kjcyfi918.18 cmShantel Yeer BOX BENDER Work Phone: 1(479)[address]09-16-2025 14:23-0400 Body mass index (BMI) [Ratio]30.5 kg/p7ZmhnhjtpShantel Corralrbacher BOX BENDER Work Phone: 1(474)[address] [place], [place] 5598709-16-2025 14:23-0400 Body objcalnmseb09 [degF]Shantel Norton B[employer] BENDER Work Phone: 1(982)[address] [place], [place] 5598709-16-2025 14:23-0400 Body .45 kgShantel Ramirezacher BOX BENDER Work Phone: 1(065)[address] [place], [place] 5598709-16-2025 14:23-0400 Diastolic blood ihyxuafh90 mm[Hg]Shantel Norton B[employer] B[employer]ER Work Phone: 1(505)[address] [place], [place] 5598709-16-2025 14:23-0400 Heart rate88 /minShantel Yeer BOX BENDER Work Phone: 1(958)[address] [place], [place] 5598709-16-2025 14:23-0400 SaO2% (BldA) [Mass fraction]96 %Shantel Norton B[employer] BENDER Work Phone: 1(138)[address] [place], [place] 5598709-16-2025 14:23-0400 Systolic blood nzaxawao989 mm[Hg]Shantel Yeesandra B[employer] BENDER Work Phone: 1(265)[address] [place], [place] 5598709-09-2025 13:32-0400 Body buikie394.18 cmShantel Ramirezacher BOX BENDER Work Phone: 1(009)[address] [place], [place] 5598709-09-2025 13:32-0400 Body mass index (BMI) [Ratio]30.5 kg/r6RmzckvieShantel Corralrbacher BOX BENDER Work Phone: 1(618)[address] [place], [place] 5598709-09-2025 13:32-0400 Body .5 kgShantel Ramirezacher BOX BENDER Work Phone: 1(912)[address] [place] [address] Xkqrye18-72-6211 13:32-0400 Diastolic blood yqttfooj01 mm[Hg]Shantel Norton B[employer] BENDER Work Phone: [facility]09-09-2025 13:32-0400 Heart rate79 /Aaliyah Ramirezacher B[employer] BENDER Work Phone: 1(982)372-76[facility]09-09-2025 13:32-0400 Respiratory rate18 /Aaliyah Corralharithaacher B[employer] BENDER Work Phone: 1(248)581-43[facility]09-09-2025 13:32-0400 SaO2% (BldA) [Mass fraction]96 %Shantel Norton [employer]ER Work Phone: [phone]09-09-2025 13:32-0400 Systolic blood dwhkedax022 mm[Hg]Shantel Norton APRN Work Phone: [phone]09-03-2025 13:47-0400 Body wulmme768.2 cmRoland Faust MD Work Phone: [facility]09-03-2025 13:47-0400 Body mass index (BMI) [Ratio]30.85 kg/i6OknjjvyRoland Faust MD Work Phone: [facility]09-03-2025 13:47-0400 Body uwzsan22.36 kgRoland Faust MD Work Phone: [facility]09-03-2025 13:47-0400 Diastolic blood mmtzusdh75 mm[Hg]Roland Faust MD Work Phone: [facility]09-03-2025 13:47-0400 Heart rate62 /Luz Faust MD Work Phone: [facility]09-03-2025 13:47-0400 Systolic blood mzmurgto338 mm[Hg]Roland Faust MD Work Phone: [facility]08-19-2025 13:52-0400 Body qwxrby675.18 cmGloria Keita DO Work Phone: 1(083)[address] [place], [place] 0800308-19-2025 13:52-0400 Body mass index (BMI) [Ratio]30.7 kg/g4Pmlvly Keita DO Work Phone: 1(356)[address] [place], [place] 0800308-19-2025 13:52-0400 Body knpgcvodbkc29.4 [degF]Sandra Keita DO Work Phone: 1(112)[address] [place], [place] 0800308-19-2025 13:52-0400 Body mztdeu09.9 kgGloria Keita DO Work Phone: 1(047)[address] [place], [place] 0800308-19-2025 13:52-0400 Diastolic blood ncqrdiac65 mm[Hg]Sandra Keita DO Work Phone: 1(582)[address] [place], [place] 0800308-19-2025 13:52-0400 Heart rate79 /minGloria Keita DO Work Phone: 1(868)[address] [place], [place] 0800308-19-2025 13:52-0400 SaO2% (BldA) [Mass fraction]98 %Sandra Keita DO Work Phone: 1(712)[address] [place], [place] 0800308-19-2025 13:52-0400 Systolic blood clcfiwmx58 mm[Hg]Sandra Keita DO Work Phone: 1(233)[address] [place], [place] 0800306-10-2025 13:57-0400 Body reupda739.2 cmOz Kincaid MD Work Phone: [facility]villeMfkyrbbqcm09-89-8623 13:57-0400Body mass index (BMI) [Ratio]31.48 kg/m2Oz Kincaid MD Work Phone: [facility]SmithvilleWiimwppffw06-17-6038 13:57-0400Body himdqo37.17 kgOz Kincaid MD Work Phone: [facility]–SmithvilleFiwdogkpcb78-49-1698 14:59-0400Body qhxryg445.18 cmGloria Keita DO Work Phone: 1(195)[address] [place], [place] 0800306-05-2025 14:59-0400 Body mass index (BMI) [Ratio]31.4 kg/z4Ddieik Keita DO Work Phone: 1(709)[address] [place], [place] 0800306-05-2025 14:59-0400 Body .17 kgGloria Keita DO Work Phone: 1(791)[address] [place], [place] 0800306-05-2025 14:59-0400 Diastolic blood ibdjvmgf73 mm[Hg]Sandra Keita DO Work Phone: 1(298)[address] [place], [place] 0800306-05-2025 14:59-0400 Heart rate65 /minGloria Keita DO Work Phone: 1(561)[address] [place], [place] 0800306-05-2025 14:59-0400 SaO2% (BldA) [Mass fraction]95 %Sandra Keita DO Work Phone: 1(864)[address] [place], [place] 0800306-05-2025 14:59-0400 Systolic blood lwzwwohd95 mm[Hg]Sandra Keita DO Work Phone: 1(561)[address] [place], [place] 0800305-15-2025 13:30-0400 Diastolic blood vwdarsnj60 mm[Hg]Sandra Keita DO Work Phone: 1(525)[address] [place], [place] 0800305-15-2025 13:30-0400 Heart rate79 /minGloria Keita DO Work Phone: 1(396)[address] [place], [place] 0800305-15-2025 13:30-0400 Respiratory rate16 /minGloria Keita DO Work Phone: 1(980)[address] [place], [place] 0800305-15-2025 13:30-0400 SaO2% (BldA) [Mass fraction]95 %Sandra Keita DO Work Phone: 1(036)[address] [place], [place] 0800305-15-2025 13:30-0400 Systolic blood jeofhpnj217 mm[Hg]Sandra Keita DO Work Phone: 1(778)[address] [place], [place] 0800305-15-2025 13:00-0400 Inhaled oxygen flow rate2 L/minGloria Keiat DO Work Phone: 1(518)[address] [place], [place] 0800305-15-2025 11:07-0400 Body .18 cmGloria Keita DO Work Phone: 1(119)[address] [place], [place] 0800305-15-2025 11:07-0400 Body kmufqb29.71 kgGloria Keita DO Work Phone: 1(257)[address] [place], [place] 0800305-12-2025 11:06-0400 Diastolic blood lpzkpwop75 mm[Hg]Sandra Keita DO Work Phone: 1(276)[address] [place], [place] 0800305-12-2025 11:06-0400 Systolic blood dmwsbyxh656 mm[Hg]Sandra Keita DO Work Phone: 1(968)[address] [place], [place] 0800304-29-2025 13:37-0400 Body jpsotl459.18 cmGloria Keita DO Work Phone: 1(672)[address] [place], [place] 0800304-29-2025 13:37-0400 Body mass index (BMI) [Ratio]31.8 kg/n2Mhtntu Keita DO Work Phone: 1(830)[address] [place], [place] 0800304-29-2025 13:37-0400 Body vkwhea64.16 kgGloria Keita DO Work Phone: 1(201)[address] [place], [place] 0800304-29-2025 13:37-0400 Diastolic blood mpsklbad11 mm[Hg]Sandra Keita DO Work Phone: 1(487)[address] [place], [place] 0800304-29-2025 13:37-0400 Heart rate71 /minGloria Keita DO Work Phone: 1(503)[address] [place], [place] 0800304-29-2025 13:37-0400 Respiratory rate18 /minGloria Keita DO Work Phone: 1(893)[address] [place], [place] 0800304-29-2025 13:37-0400 SaO2% (BldA) [Mass fraction]96 %Sandra Keita DO Work Phone: 1(309)[address] [place], [place] 0800304-29-2025 13:37-0400 Systolic blood mm[Hg]Sandra Keita DO Work Phone: 1(302)[address] [place], [place] 0800304-24-2025 10:03-0400 Body psldny100.18 cmGloria Keita DO Work Phone: 1(218)[address] [place], [place] 0800304-24-2025 10:03-0400 Body mass index (BMI) [Ratio]32.2 kg/h5Ddbabb Keita DO Work Phone: 1(796)[address] [place], [place] 0800304-24-2025 10:03-0400 Body ftojoz87.3 kgGloria Keita DO Work Phone: 1(671)[address] [place], [place] 0800304-24-2025 10:03-0400 Diastolic blood zflhylva22 mm[Hg]Sandra Keita DO Work Phone: 1(614)[address] [place], [place] 0800304-24-2025 10:03-0400 Heart rate64 /minGloria Keita DO Work Phone: 1(435)[address] [place], [place] 0800304-24-2025 10:03-0400 Respiratory rate18 /minGloria Keita DO Work Phone: 1(224)[address] [place], [place] 0800304-24-2025 10:03-0400 SaO2% (BldA) [Mass fraction]94 %Sandra Keita DO Work Phone: 1(243)[address] [place], [place] 0800304-24-2025 10:03-0400 Systolic blood ejcoolpw845 mm[Hg]Sandra Keita DO Work Phone: 1(349)[address] [place], [place] 0800303-26-2025 11:19-0400 Body dwlypo533.18 cmGloria Keita DO Work Phone: 1(612)[address] [place], [place] 0800303-26-2025 11:19-0400 Body mass index (BMI) [Ratio]31.3 kg/u8Jgolyr Keita DO Work Phone: 1(824)[address] [place], [place] 0800303-26-2025 11:19-0400 Body anuiiyfotdw03.2 [degF]Sandra Keita DO Work Phone: 1(461)[address] [place], [place] 0800303-26-2025 11:19-0400 Body rexcdb25.71 kgGloria Keita DO Work Phone: 1(575)[address] [place], [place] 0800303-26-2025 11:19-0400 Diastolic blood miwtepjw89 mm[Hg]Sandra Keita DO Work Phone: 1(246)[address] [place], [place] 0800303-26-2025 11:19-0400 Heart rate72 /minGloria Keita DO Work Phone: 1(353)[address] [place], [place] 0800303-26-2025 11:19-0400 Respiratory rate16 /minGloria Keita DO Work Phone: 1(234)[address] [place], [place] 0800303-26-2025 11:19-0400 SaO2% (BldA) [Mass fraction]98 %Sandra Keita DO Work Phone: 1(649)[address] [place], [place] 0800303-26-2025 11:19-0400 Systolic blood ppfwivjb007 mm[Hg]Sandra Keita DO Work Phone: 1(556)[address] [place], [place] 0800303-25-2025 14:48-0400 Body ykviwu517.2 cmOz Kincaid MD Work Phone: [facility]villeXjlrdkxxhm53-47-7949 14:48-0400Body mass index (BMI) [Ratio]31.32 kg/m2Oz Kincaid MD Work Phone: [facility]SmithvilleSozmljgnze83-68-7851 14:48-0400Body wmyyql19.72 kgOz Kincaid MD Work Phone: [facility]SmithvilleJyidslxlpj18-27-2190 09:46-0500Body loruut877.2 cmRoland Faust MD Work Phone: [facility]02-28-2025 09:46-0500 Body mass index (BMI) [Ratio]32.51 kg/j7DsxdyjnRoland Faust MD Work Phone: [facility]02-28-2025 09:46-0500 Body hosrtz58.17 kgRoland Faust MD Work Phone: 1(271)[address]02-28-2025 09:46-0500 Diastolic blood jstrlrva64 mm[Hg]Roland Faust MD Work Phone: 1(036)774-[address] [place], [place] 6110402-28-2025 09:46-0500 Heart rate62 /minRoland Faust MD Work Phone: 1(854)[address]02-28-2025 09:46-0500 Systolic blood aoowgioz896 mm[Hg]Roland Faust MD Work Phone: 1(766)020[facility]19[facility]01-09-2025 13:07-0500 Body wclori871.18 cmGloria Keita DO Work Phone: 1(777)[address] [place], [place] 0800301-09-2025 13:07-0500 Body mass index (BMI) [Ratio]32.9 kg/t5Isjkgc Keita DO Work Phone: 1(170)[address] [place], [place] 0800301-09-2025 13:07-0500 Body .3 kgGloria Keita DO Work Phone: 1(691)[address] [place], [place] 0800301-09-2025 13:07-0500 Diastolic blood ecmvekby98 mm[Hg]Sandra Keita DO Work Phone: 1(278)[address] [place], [place] 0800301-09-2025 13:07-0500 Heart rate64 /minGloria Keita DO Work Phone: 1(675)[address] [place], [place] 0800301-09-2025 13:07-0500 Respiratory rate18 /minGloria Keita DO Work Phone: 1(412)[address] [place], [place] 0800301-09-2025 13:07-0500 SaO2% (BldA) [Mass fraction]97 %Sandra Keita DO Work Phone: 1(678)[address] [place], [place] 0800301-09-2025 13:07-0500 Systolic blood mm[Hg]Sandra Keita DO Work Phone: 1(249)[address] [place], [place] 0800301-02-2025 08:25-0500 Body irxwduqjnaf92.8 [degF]Sandra Keita DO Work Phone: 1(963)[address] [place], [place] 0800301-02-2025 08:25-0500 Diastolic blood sifjpbzf45 mm[Hg]Sandra Keita DO Work Phone: 1(578)[address] [place], [place] 0800301-02-2025 08:25-0500 Heart rate64 /minGloria Keita DO Work Phone: 1(832)[address] [place], [place] 0800301-02-2025 08:25-0500 Respiratory rate18 /minGloria Keita DO Work Phone: 1(359)[address] [place], [place] 0800301-02-2025 08:25-0500 SaO2% (BldA) [Mass fraction]96 %Sandra Keita DO Work Phone: 1(470)[address] [place], [place] 0800301-02-2025 08:25-0500 Systolic blood rhiyyrby988 mm[Hg]Sandra Keita DO Work Phone: 1(395)[address] [place], [place] 0800301-02-2025 05:12-0500 Body mvfuab94.2 kgGloria Keita DO Work Phone: 1(748)[address] [place], [place] 0800312-31-2024 23:40-0500 Body trftaw302.18 cmGloria Keita DO Work Phone: 1(951)[address] [place], [place] 0800312-31-2024 23:19-0500 Diastolic blood ebahyapn88 mm[Hg]Sandra Keita DO Work Phone: 1(798)[address] [place], [place] 0800312-31-2024 23:19-0500 Heart rate72 /minGloria Keita DO Work Phone: 1(134)[address] [place], [place] 0800312-31-2024 23:19-0500 Respiratory rate18 /minGloria Keita DO Work Phone: 1(457)[address] [place], [place] 0800312-31-2024 23:19-0500 SaO2% (BldA) [Mass fraction]98 %Sandra Keita DO Work Phone: 1(322)[address] [place], [place] 0800312-31-2024 23:19-0500 Systolic blood jrwraeyc305 mm[Hg]Sandra Keita DO Work Phone: 1(063)[address] [place], [place] 0800312-31-2024 19:39-0500 Body .18 cmGloria Keita DO Work Phone: 1(656)[address] [place], [place] 0800312-31-2024 19:39-0500 Body yxyovdlykkh23.1 [degF]Sandra Keita DO Work Phone: 1(143)[address] [place], [place] 0800312-31-2024 19:39-0500 Body ikifrx42.4 kgGloria Keita DO Work Phone: 1(211)[address] [place], [place] 0800312-31-2024 11:35-0500 Body .18 cmGloria Keita DO Work Phone: 1(609)[address] [place], [place] 0800312-31-2024 11:35-0500 Body mass index (BMI) [Ratio]32.5 kg/z8Lblouk Keita DO Work Phone: 1(083)[address] [place], [place] 0800312-31-2024 11:35-0500 Body zadehc80.34 kgGloria Keita DO Work Phone: 1(866)[address] [place], [place] 0800312-31-2024 11:35-0500 Diastolic blood spuqjmrz90 mm[Hg]Sandra Keita DO Work Phone: 1(652)[address] [place], [place] 0800312-31-2024 11:35-0500 Heart rate71 /minGloria Keita DO Work Phone: 1(764)[address] [place], [place] 0800312-31-2024 11:35-0500 Respiratory rate18 /minGloria Keita DO Work Phone: 1(447)[address] [place], [place] 0800312-31-2024 11:35-0500 SaO2% (BldA) [Mass fraction]94 %Sandra Keita DO Work Phone: 1(765)[address] [place], [place] 0800312-31-2024 11:35-0500 Systolic blood fomdxuvf26 mm[Hg]Sandra Keita DO Work Phone: 1(280)[address] [place], [place] 0800312-31-2024 10:15-0500 Body .18 cmGloria Keita DO Work Phone: 1(132)[address] [place], [place] 0800312-31-2024 10:15-0500 Body mass index (BMI) [Ratio]32.7 kg/q2Obpjan Keita DO Work Phone: 1(741)[address] [place], [place] 0800312-31-2024 10:15-0500 Body xdjgnjdcsel43.9 [degF]Sandra Keita DO Work Phone: 1(532)[address] [place], [place] 0800312-31-2024 10:15-0500 Body bbppsi73.8 kgGloria Keita DO Work Phone: 1(056)[address] [place], [place] 0800312-31-2024 10:15-0500 Diastolic blood epddkeoe36 mm[Hg]Sandra Keita DO Work Phone: 1(045)[address] [place], [place] 0800312-31-2024 10:15-0500 Heart rate70 /minGloria Keita DO Work Phone: 1(862)[address] [place], [place] 0800312-31-2024 10:15-0500 Respiratory rate16 /minGloria Keita DO Work Phone: 1(906)[address] [place], [place] 0800312-31-2024 10:15-0500 SaO2% (BldA) [Mass fraction]96 %Sandra Keita DO Work Phone: 1(806)[address] [place], [place] 0800312-31-2024 10:15-0500 Systolic blood wlppwnox45 mm[Hg]Sandra Keita DO Work Phone: 1(234)[address] [place], [place] 0800312-30-2024 14:29-0500 Body .18 cmGloria Keita DO Work Phone: 1(733)[address] [place], [place] 0800312-30-2024 14:29-0500 Body pwpfhypyhwc50 [degF]Sandra Keita DO Work Phone: 1(015)[address] [place], [place] 0800312-30-2024 14:29-0500 Body pwpyyh79.71 kgGloria Keita DO Work Phone: 1(204)[address] [place], [place] 0800312-30-2024 14:29-0500 Diastolic blood nhscsaul68 mm[Hg]Sandra Keita DO Work Phone: 1(341)[address] [place], [place] 0800312-30-2024 14:29-0500 Heart rate80 /minGloria Keita DO Work Phone: 1(742)[address] [place], [place] 0800312-30-2024 14:29-0500 Respiratory rate18 /minGloria Keita DO Work Phone: 1(350)[address] [place], [place] 0800312-30-2024 14:29-0500 SaO2% (BldA) [Mass fraction]93 %Sandra Keita DO Work Phone: 1(640)[address] [place], [place] 0800312-30-2024 14:29-0500 Systolic blood jskyiaem607 mm[Hg]Sandra Keita DO Work Phone: 1(495)[address] [place], [place] 0800312-17-2024 09:35-0500 Body gxgane266.18 cmGloria Keita DO Work Phone: 1(648)[address] [place], [place] 0800312-17-2024 09:35-0500 Body mass index (BMI) [Ratio]32.1 kg/t7Cwtzju Keita DO Work Phone: 1(173)[address] [place], [place] 0800312-17-2024 09:35-0500 Body [degF]Sandra Keita DO Work Phone: 1(273)[address] [place], [place] 0800312-17-2024 09:35-0500 Body hebofp00.98 kgGloria Keita DO Work Phone: 1(777)[address] [place], [place] 0800312-17-2024 09:35-0500 Diastolic blood ipgykddn92 mm[Hg]Sandra Keita DO Work Phone: 1(369)[address] [place], [place] 0800312-17-2024 09:35-0500 Heart rate78 /minGloria Keita DO Work Phone: 1(652)[address] [place], [place] 0800312-17-2024 09:35-0500 Respiratory rate20 /minGloria Keita DO Work Phone: 1(590)[address] [place], [place] 0800312-17-2024 09:35-0500 SaO2% (BldA) [Mass fraction]98 %Sandra Keita DO Work Phone: 1(577)[address] [place], [place] 0800312-17-2024 09:35-0500 Systolic blood utdjrnzh764 mm[Hg]Sandra Debbie DO Work Phone: 1(288)[address] [place], [place] 0800312-10-2024 13:26-0500 Body .2 cmOz Kincaid MD Work Phone: 4(998)128-[address] [place], [place] [id number] 13:26-0500Body mass index (BMI) [Ratio]31.32 kg/m2Oz Kincaid MD Work Phone: 9(721)355-[address] [place], [place] [address]Fvnfudfnjp01-31-2867 13:26-0500Body rqlybk01.72 kgOz Kincaid MD Work Phone: 4(434)297-[address] [place], [place] [address]Veawtocipg93-86-1036 13:42-0500Body juxcme853.2 cmRoland Faust MD Work Phone: [facility]11-27-2024 13:42-0500 Body mass index (BMI) [Ratio]32.58 kg/j0IigerygRoland Faust MD Work Phone: [facility]11-27-2024 13:42-0500 Body kxomsb74.35 kgRoland Faust MD Work Phone: [facility]11-27-2024 13:42-0500 Diastolic blood mphozzkq86 mm[Hg]Roland Faust MD Work Phone: [facility]11-27-2024 13:42-0500 Heart rate63 /minRoland Faust MD Work Phone: [facility]11-27-2024 13:42-0500 Systolic blood fyirwgoa324 mm[Hg]Roland Faust MD Work Phone: [phone]10-29-2024 13:55-0400 Body unjihl989.2 cmOz Kincaid MD Work Phone: 1(531)[address]10-29-2024 13:55-0400Body mass index (BMI) [Ratio]31.32 kg/m2Oz Kincaid MD Work Phone: 1(951)119-[address] [place], [place] [address]Qfeerzcrax83-89-0909 13:55-0400Body momung12.72 kgOz Kincaid MD Work Phone: 1(212)155-[address] [place], [place] [address]Xndnejdode38-47-1870 13:55-0400Diastolic blood goxzqirn57 mm[Hg]Oz Kincaid MD Work Phone: 1(199)686-[address] [place], [place] [address]Ttdxuahlnf62-58-4438 13:55-0400Heart rate74 /min Oz Kincaid MD Work Phone: 1(036)197-[address] [place], [place] [address]Ffzwbcsjnw81-09-2520 13:55-0400Systolic blood slirhsaw131 mm[Hg]Oz Kincaid MD Work Phone: 1(802)[address] [place], [place] 4425310-18-2024 13:23-0400Body mgherq191.18 cmGloria Keita DO Work Phone: [facility]10-18-2024 13:23-0400 Body hfbylu22.71 kgGloria Keita DO Work Phone: [facility]10-07-2024 11:56-0400 Body eufdbx860.18 cmDO Sandra Keita Work Phone: [facility]10-07-2024 11:56-0400 Body mass index (BMI) [Ratio]31.6 kg/m2DO Sandra Keita Work Phone: 1(227)[address] [place], [place] 0800310-07-2024 11:56-0400 Body kpjded68.62 kgDO Sandra Keita Work Phone: 1(724)[address] [place], [place] 0800310-07-2024 11:56-0400 Diastolic blood isxulwgh59 mm[Hg]DO Sandra Keita Work Phone: 1(463)[address] [place], [place] 0800310-07-2024 11:56-0400 Heart rate63 /Evelia Flores [facility] Work Phone: 1(774)[address] [place], [place] 0800310-07-2024 11:56-0400 Respiratory rate18 /minDO Sandra Keita Work Phone: 1(112)[address] [place], [place] 0800310-07-2024 11:56-0400 SaO2% (BldA) [Mass fraction]98 %DO Sandra Keita Work Phone: 1(686)[address] [place], [place] 0800310-07-2024 11:56-0400 Systolic blood ytboffmt369 mm[Hg]DO Sandra [facility] Work Phone: 1(093)[address] [place], [place] 0800309-18-2024 15:38-0400 Body .18 cmDO Sandra Keita Work Phone: 1(357)[address] [place], [place] 0800309-18-2024 15:38-0400 Body mass index (BMI) [Ratio]31.3 kg/m2DO Sandra Keita Work Phone: 1(783)[address] [place], [place] 0800309-18-2024 15:38-0400 Body ywskph44.77 kgDO Sandra Keita Work Phone: 1(029)[address] [place], [place] 0800309-10-2024 13:18-0400 Body .2 cmOz Kincaid MD Work Phone: [facility]Jdsrrptpgt71-61-7299 13:18-0400Body mass index (BMI) [Ratio]31.32 kg/m2Oz Kincaid MD Work Phone: [facility]villeUrsltaabca59-84-9952 13:18-0400Body krncoo88.72 kgOz Kincaid MD Work Phone: [facility]SmithvilleRzfodemyea12-90-3067 13:18-0400Diastolic blood phjyjhgn01 mm[Hg]Oz Kincaid MD Work Phone: [facility]villeVqulijehhx67-16-5041 13:18-0400Heart rate62 /min Oz Kincaid MD Work Phone: [facility]villeOepfjowujh74-85-4497 13:18-0400Systolic blood mm[Hg]Oz Kincaid MD Work Phone: 2(529)380-[address] [place], [place] [address]Zlsiazpnzk22-88-3843 10:40-0400Body hgytrb418.2 cmRoland Faust MD Work Phone: 7(771)210[facility]44[facility]08-19-2024 10:40-0400 Body mass index (BMI) [Ratio]30.48 kg/c1HivostbRoland Faust MD Work Phone: 8(065)[address]08-19-2024 10:40-0400 Body ehxrrf76.27 kgRoland Faust MD Work Phone: 5(458)334-[address] [place], [place] 6110408-19-2024 10:40-0400 Diastolic blood qfpmruem50 mm[Hg]Roland Faust MD Work Phone: 6(254)832-[address] [place], [place] 6110408-19-2024 10:40-0400 Heart rate73 /minRoland Faust MD Work Phone: 1(973)591-[address] [place], [place] 6110408-19-2024 10:40-0400 Systolic blood mnrxhuab979 mm[Hg]Roland Faust MD Work Phone: 3(318)958-[address] [place], [place] 6110407-22-2024 13:14-0400 Body nqedgh271.18 cmDO Sandra Keita Work Phone: [facility]07-22-2024 13:14-0400 Body mass index (BMI) [Ratio]28.6 kg/m2DO Sandrarebecca Keita Work Phone: 1(475)[address] [place], [place] 0800307-22-2024 13:14-0400 Body brerkd66 kgDO Sandra Keita Work Phone: 1(459)[address] [place], [place] 0800307-22-2024 13:14-0400 Diastolic blood ucqxordh65 mm[Hg]DO Sandra Keita Work Phone: 1(647)[address] [place], [place] 0800307-22-2024 13:14-0400 Heart rate54 /minDO Sandra Keita Work Phone: 1(107)[address] [place], [place] 0800307-22-2024 13:14-0400 Respiratory rate18 /minDO Sandra Keita Work Phone: 1(759)[address] [place], [place] 0800307-22-2024 13:14-0400 SaO2% (BldA) [Mass fraction]97 %DO Sandra Kieta Work Phone: 1(068)[address] [place], [place] 0800307-22-2024 13:14-0400 Systolic blood ozydzzfy07 mm[Hg]DO Sandrarebecca Keita Work Phone: 1(301)[address] [place], [place] 0800307-18-2024 15:07-0400 Body ctgmux223.18 cmDO Sandra Keita Work Phone: 1(363)[address] [place], [place] 0800307-18-2024 15:07-0400 Body mass index (BMI) [Ratio]28.5 kg/m2DO Sandrarebecca Keita Work Phone: 1(560)[address] [place], [place] 0800307-18-2024 15:07-0400 Body hvobvm26.8 kgDO Sandrarebecca Keita Work Phone: 1(109)[address] [place], [place] 0800307-18-2024 15:07-0400 Diastolic blood qthxzlyj32 mm[Hg]DO Sandra Keita Work Phone: 1(184)[address] [place], [place] 0800307-18-2024 15:07-0400 Heart rate67 /minDO Sandra Keita Work Phone: [facility]07-18-2024 15:07-0400 Respiratory rate18 /minDO Sandra Keita Work Phone: [facility]07-18-2024 15:07-0400 SaO2% (BldA) [Mass fraction]97 %DO Sandra Keita Work Phone: [facility]07-18-2024 15:07-0400 Systolic blood heojsuda374 mm[Hg]DO Sandra Keita Work Phone: [facility]421[facility]07-17-2024 13:54-0400 Body ykhadp479.2 cmJonas Ch MD Work Phone: [facility]07-17-2024 13:54-0400 Body mass index (BMI) [Ratio]28.19 kg/m3YvzaymzJonas Ch MD Work Phone: 1(903)166-[address] [place], [place] 6110407-17-2024 13:54-0400 Body jaqgmp51.65 kgJonas Ch MD Work Phone: 9(562)691-[address] [place], [place] 6110407-17-2024 13:54-0400 Diastolic blood kbcqiean43 mm[Hg]Jonas Ch MD Work Phone: 4(754)495-48[facility]07-17-2024 13:54-0400 Heart rate87 /minJonas Ch MD Work Phone: [facility]07-17-2024 13:54-0400 Systolic blood wqmpqxag543 mm[Hg]Jonas Ch MD Work Phone: 1(504)146-[address] [place], [place] 6110407-16-2024 16:12-0400 Diastolic blood mm[Hg]DO Sandra Keita Work Phone: [facility]07-16-2024 16:12-0400 Heart rate61 /minDKelly Keita Work Phone: 1(567)867-[address] [place] 5779207-16-2024 16:12-0400 Respiratory rate16 /minDO Sandra Debbie Work Phone: 1(641)[address] [place], [place] 0800307-16-2024 16:12-0400 SaO2% (BldA) [Mass fraction]96 %DO Sandrarebecca Keita Work Phone: 1(071)[address] [place], [place] 0800307-16-2024 16:12-0400 Systolic blood mrumwykd358 mm[Hg]DO Sandrarebecca Keita Work Phone: 1(675)[address] [place], [place] 0800307-16-2024 12:16-0400 Body jtgdjnuywbg93.5 [degF]DO Sandrarebecca Keita Work Phone: 1(184)[address] [place], [place] 0800307-16-2024 06:00-0400 Body jzsxwi71.5 kgDO Sandra Keita Work Phone: 1(920)[address] [place], [place] 0800307-14-2024 08:23-0400 Body bxscol319.18 cmDO Sandra Keita Work Phone: 1(552)[address] [place], [place] 0800307-14-2024 05:05-0400 Diastolic blood fuulbvyt54 mm[Hg]DO Sandrarebecca Keita Work Phone: 1(526)[address] [place], [place] 0800307-14-2024 05:05-0400 Heart rate62 /minDO Sandra Debbie Work Phone: 1(535)[address] [place], [place] 0800307-14-2024 05:05-0400 Respiratory rate18 /minDO Sandra Debbie Work Phone: 1(072)[address] [place], [place] 0800307-14-2024 05:05-0400 SaO2% (BldA) [Mass fraction]100 %DO Sandrarebecca Keita Work Phone: 1(940)[address] [place], [place] 0800307-14-2024 05:05-0400 Systolic blood mm[Hg]DO Sandra Debbie Work Phone: 1(346)[address] [place], [place] 0800307-14-2024 03:44-0400 Body qgclgoeruun29.1 [degF]DO Sandrarebecca Keita Work Phone: 1(383)4-[address] [place], [place] 5675607-13-2024 22:16-0400 Body xwouoz793.18 cmDO Sandra Debbie Work Phone: 1(674)[address]07-13-2024 22:16-0400 Body yxfuvr25.64 kgDO Sandra Debbie Work Phone: 1(481)[address] [place], [place] 0800307-09-2024 12:36-0400 SaO2% (BldA) [Mass fraction]100 %DO Sandrarebecca Keita Work Phone: 1(328)[address] [place], [place] 0800306-10-2024 09:48-0400 Body sxluvh962.2 cmJonas Ch MD Work Phone: [facility]06-10-2024 09:48-0400 Body mass index (BMI) [Ratio]28.19 kg/q6CymtswuJonas Ch MD Work Phone: 7(804)992-74[facility]06-10-2024 09:48-0400 Body .65 kgJonas Ch MD Work Phone: 2(467)668-[address] [place], [place] 6110406-10-2024 09:48-0400 Diastolic blood rbjvocfy44 mm[Hg]Jonas Ch MD Work Phone: 0(114)192-46[facility]06-10-2024 09:48-0400 Heart rate92 /minJonas Ch MD Work Phone: 5(385)465-25[facility]06-10-2024 09:48-0400 Systolic blood mm[Hg]Jonas Ch MD Work Phone: 2(831)985-[address] [place], [place] 6110405-21-2024 13:02-0400 Body uatvlj413.64 cmDO Sandra Keita Work Phone: 1(062)282-[address] [place], [place] 5675605-21-2024 13:02-0400 Body mass index (BMI) [Ratio]29 kg/m2DO Sandra Keita Work Phone: 1(372)[address] [place], [place] 5675605-21-2024 13:02-0400 Body .67 kgDO Sandra Debibe Work Phone: 1(954)[address] [place], [place] 0800305-21-2024 13:02-0400 Diastolic blood qytxyviy24 mm[Hg]DO Sandra Debbie Work Phone: 1(341)[address] [place], [place] 0800305-21-2024 13:02-0400 Heart zyhu743 /minDO Sandra Keita Work Phone: 1(574)[address] [place], [place] 0800305-21-2024 13:02-0400 Respiratory rate18 /minDO Sandra Keita Work Phone: 1(587)[address] [place], [place] 0800305-21-2024 13:02-0400 SaO2% (BldA) [Mass fraction]99 %DO Sandra Keita Work Phone: 1(509)[address] [place], [place] 0800305-21-2024 13:02-0400 Systolic blood rasuojfa13 mm[Hg]DO Sandra Keita Work Phone: 1(813)[address] [place], [place] 0800305-18-2024 16:11-0400 Body izykyieocst18.7 [degF]DO Sandra Debbie Work Phone: 1(788)[address] [place], [place] 0800305-18-2024 16:11-0400 Diastolic blood sjxnfnoy00 mm[Hg]DO Sandra Debbie Work Phone: 1(808)[address] [place], [place] 0800305-18-2024 16:11-0400 Heart rate74 /minDO Sandra Keita Work Phone: 1(165)[address] [place], [place] 0800305-18-2024 16:11-0400 Respiratory rate17 /minDO Sandra Keita Work Phone: 1(649)[address] [place], [place] 0800305-18-2024 16:11-0400 SaO2% (BldA) [Mass fraction]95 %DO Sandra Debbie Work Phone: 1(981)[address] [place], [place] 0800305-18-2024 16:11-0400 Systolic blood kmuywgtb056 mm[Hg]DO Sandra Keita Work Phone: 1(839)[address] [place], [place] 0800305-18-2024 06:00-0400 Body .2 kgDO Sandra Keita Work Phone: 1(122)[address] [place], [place] 0800305-17-2024 12:41-0400 Body kqfiho544.18 cmDO Sandra Keita Work Phone: 1(642)[address] [place], [place] 0800305-16-2024 13:58-0400 Body .64 cmDO Sandra Keita Work Phone: 1(013)[address] [place], [place] 0800305-16-2024 13:58-0400 Body mass index (BMI) [Ratio]29 kg/m2DO Sandra Keita Work Phone: 1(944)[address] [place], [place] 0800305-16-2024 13:58-0400 Body qnlodi68.64 kgDO Sandra Keita Work Phone: 1(129)[address] [place], [place] 0800305-16-2024 13:58-0400 Diastolic blood lzdaekzm57 mm[Hg]DO Sandra Keita Work Phone: 1(590)[address] [place], [place] 0800305-16-2024 13:58-0400 Heart mgza222 /minDKelly Keita Work Phone: 1(973)[address] [place], [place] 0800305-16-2024 13:58-0400 Respiratory rate18 /minDO Sandra Keita Work Phone: 1(515)[address] [place], [place] 0800305-16-2024 13:58-0400 SaO2% (BldA) [Mass fraction]97 %DO Sandra Keita Work Phone: 1(162)[address] [place], [place] 0800305-16-2024 13:58-0400 Systolic blood mm[Hg]DO Sandrarebecca Keita Work Phone: 1(443)[address] [place], [place] 0800303-20-2024 11:43-0400 Body oxrsva617.64 [facility]03-20-2024 11:43-0400Body mass index (BMI) [Ratio]28.8 kg/n0EfgvxepzoPrem[facility]03-20-2024 11:43-0400Body .8 [degF][facility]03-20-2024 11:43-0400Body qbkfki98.19 kgPrem[facility]03-20-2024 11:43-0400Diastolic blood razbndpv82 mm[Hg][facility] 07-17-2023 11:43-0400Heart rate78 /[facility] 07-17-2023 11:43-0400Respiratory rate16 /[facility] 07-17-2023 11:43-8801JqR1% (BldA) [Mass fraction]98 %[facility]03-20-2024 11:43-0400Systolic blood rxwdyyua530 mm[Hg][facility]02-21-2024 15:53-0500Body aaertw380.64 [facility]02-21-2024 15:53-0500Body mass index (BMI) [Ratio]28.9 kg/m2 [facility]02-21-2024 15:53-0500Body qyplrp13.33 kg [facility]02-21-2024 15:53-0500Diastolic blood spiekvca11 mm[Hg][facility]02-21-2024 15:53-0500Heart rate95 /min [facility]02-21-2024 15:53-0500Respiratory rate18 /min [facility]02-21-2024 15:53-1477PuY8% (BldA) [Mass fraction]97 %[facility]02-21-2024 15:53-0500Systolic blood zrftqykx01 mm[Hg][facility]02-14-2024 15:38-0500 Body cerxke493.64 [facility]02-14-2024 15:38-0500Body mass index (BMI) [Ratio]28.5 kg/x7ZisbwbvnjPrem[facility] Health [facility]02-14-2024 15:38-0500Body fssvqy23.28 kgPrem[facility]02-14-2024 15:38-0500Diastolic blood vmnhodeb35 mm[Hg][facility] 06-12-2023 15:38-0500Heart rate95 /minPrem[facility] 06-12-2023 15:38-0500Respiratory rate18 /[facility] 06-12-2023 15:38-4737SjM7% (BldA) [Mass fraction]99 %[facility]02-14-2024 15:38-0500Systolic blood askovoqt541 mm[Hg][facility]11-06-2023 15:00-0500Body odgarc714.64 cmGlsenait Keita Other [facility] Other 11-06-2023 15:00-0500Body mass index (BMI) [Ratio] 29.97 kg/t4JowdtqSandra Keita Other [facility] Other 11-06-2023 15:00-0500Body cmiuck06.23 kgGlsenait Keita Other [facility] Other 11-06-2023 15:00-0500Diastolic blood hgvmojpn94 mm[Hg] Sandra Keita Other [facility] Other 11-06-2023 15:00-0500Respiratory rate18 /minSandra Keita Other [facility] Other 11-06-2023 15:00-1137LmP7% (BldA) [Mass fraction]96 % Sandra Keita Other [facility] Other 11-06-2023 15:00-0500Systolic blood zkregwmd38 mm[Hg] Sandra Keita Other [employer] Other 09-11-2023 14:00-0400Body liomdf047.64 cmTondra Mapus Other [employer] Other 09-11-2023 14:00-0400Body mass index (BMI) [Ratio] 30.03 kg/a8Yynhce Mapus Other [facility] Other 09-11-2023 14:00-0400Body vrvygs26.41 kgTondra Mapus Other [facility] Other 09-11-2023 14:00-0400Diastolic blood ubytfinm66 mm[Hg] Tondra Mapus Other [facility] Other 09-11-2023 14:00-0400Respiratory rate18 /minTondra Mapus Other [employer] Other 09-11-2023 14:00-2798ShN9% (BldA) [Mass fraction]98 % Tondra Mapus Other [employer] Other 09-11-2023 14:00-0400Systolic blood ofmfunna448 mm[Hg] Tondra Mapus Other [employer] Other 09-06-2023 11:00-0400Body jnazfm325.64 Rob Noble Other [facility] Other 09-06-2023 11:00-0400Body mass index (BMI) [Ratio]29.7 kg/v2NiahsqqmBrayden Noble Other [facility] Other 09-06-2023 11:00-0400Body khoqfw51.46 kgLafavian Noble Other [facility] Other 09-06-2023 11:00-0400Diastolic blood rmlarzjx19 mm[Hg] Brayden Noble Other [facility] Other 09-06-2023 11:00-0400Systolic blood rxubvolp117 mm[Hg] Brayden Noble Other [facility] Other 08-02-2023 15:00-0400Body ekxril963.64 cmGlsenait Keita Other [facility] Other 08-02-2023 15:00-0400Body mass index (BMI) [Ratio] 29.58 kg/s3BdwbibSandra Keita Other [facility] Other 08-02-2023 15:00-0400Body .14 kgSandra Keita Other [facility] Other 08-02-2023 15:00-0400Diastolic blood tgvbqobb85 mm[Hg] Sandra Keita Other [facility] Other 08-02-2023 15:00-0400Respiratory rate20 /minGlsenait Keita Other [facility] Other 08-02-2023 15:00-4758InF8% (BldA) [Mass fraction]99 % Sandra Keita Other [facility] Other 08-02-2023 15:00-0400Systolic blood ncrndmqu836 mm[Hg] Sandra Keita Other [facility] Other 06-01-2023 14:15-0400Body khvuve699.64 cmTondra Mapus Other [facility] Other 06-01-2023 14:15-0400Body mass index (BMI) [Ratio] 29.53 kg/x0Rntcqp Mapus Other [facility] Other 06-01-2023 14:15-0400Body aeriam72.01 kgTondra Mapus Other [facility] Other 06-01-2023 14:15-0400Diastolic blood rozaogvq35 mm[Hg] Tondra Mapus Other [facility] Other 06-01-2023 14:15-0400Respiratory rate18 /minTondra Mapus Other [facility] Other 06-01-2023 14:15-1075DvW4% (BldA) [Mass fraction]97 % Tondra Mapus Other [facility] Other 06-01-2023 14:15-0400Systolic blood nnlnhucd450 mm[Hg] Tondra Mapus Other [facility] Other 04-13-2023 16:15-0400Body ewbedw511.64 cmGloria Keita Other [facility] Other 04-13-2023 16:15-0400Body mass index (BMI) [Ratio] 29.86 kg/a9Smwtqmsenait Ketia Other [facility] Other 04-13-2023 16:15-0400Body vokdcu44.92 kgGlsenait Keita Other [facility] Other 04-13-2023 16:15-0400Diastolic blood qwvbemyg58 mm[Hg] Sandra Debbie Other [facility] Other 04-13-2023 16:15-0400Respiratory rate18 /minGlsenait Keita Other [facility] Other 04-13-2023 16:15-8698XjO9% (BldA) [Mass fraction]97 % Sandrarebecca Keita Other [facility] Other 04-13-2023 16:15-0400Systolic blood biimhpyl274 mm[Hg] Sandra Debbie Other [facility] Other 02-20-2023 15:30-0500Body .64 cmTondra Mapus Other [facility] Other 02-20-2023 15:30-0500Body mass index (BMI) [Ratio] 35.34 kg/f2Gtlxry Mapus Other [facility] Other 02-20-2023 15:30-0500Body bfmrow08.34 kgTondra Mapus Other [facility] Other 02-20-2023 15:30-0500Diastolic blood blbsiotj13 mm[Hg] Tondra Mapus Other [employer] Other 02-20-2023 15:30-0500Respiratory rate18 /minTondra Mapus Other [facility] Other 02-20-2023 15:30-6620QnG6% (BldA) [Mass fraction]97 % Tondra Mapus Other [facility] Other 02-20-2023 15:30-0500Systolic blood skuhrqsk362 mm[Hg] Tondra Mapus Other [facility] Other 09-13-2022 14:00-0400Body uwxkff419.64 cmTondra Mapus Other [facility] Other 09-13-2022 14:00-0400Body mass index (BMI) [Ratio] 28.73 kg/q5Kbxhbz Mapus Other [facility] Other 09-13-2022 14:00-0400Body .74 kgTondra Mapus Other [facility] Other 09-13-2022 14:00-0400Diastolic blood mdmjwwub86 mm[Hg] Tondra Mapus Other [employer] Other 09-13-2022 14:00-0400Respiratory rate16 /minTondra Mapus Other [facility] Other 09-13-2022 14:00-2002SaB7% (BldA) [Mass fraction]97 % Tondra Mapus Other [facility] Other 09-13-2022 14:00-0400Systolic blood etwnxcnh553 mm[Hg] Angelique Russell Other [employer] Other 08-21-2022 08:23-0400Diastolic blood mm[Hg] DO [facility]08-21-2022 08:23-0400Heart rate82 /minDO [facility]08-21-2022 08:23-0400Respiratory rate18 /minDO [facility]08-21-2022 08:23-0288YdR9% (BldA) [Mass fraction]98 %DO [facility]08-21-2022 08:23-0400Systolic blood dmorvmnl525 mm[Hg]DO [facility]08-21-2022 05:29-0400 Body lthmaa582.18 cmDO [facility] 12-17-2021 05:29-0400Body lctwplkojku71.4 [degF]DO [facility]08-21-2022 05:29-0400Body jopzoq91.55 kgDO [facility]08-18-2022 06:58-0400Body aatxkp579.18 cmDO [facility]08-18-2022 06:58-0400Body mass index (BMI) [Ratio]29.2 kg/m2DO [facility]08-18-2022 06:58-0400Body egaorj99.8 kgDO [facility]08-17-2022 11:06-0400Body nqyzclchwxr39.7 [degF]DO [facility]08-17-2022 11:06-0400Diastolic blood nvxyfwmq07 mm[Hg]DO [facility] 12-13-2021 11:06-0400Heart rate88 /[facility]lePrem[facility]08-17-2022 11:06-0400Respiratory rate16 /Evelia Ranlde [facility]08-17-2022 11:06-0492PpK9% (BldA) [Mass fraction]93 %DO Trayumu RandlePrem[facility] Health [facility]08-17-2022 11:06-0400Systolic blood pvetrxjz648 mm[Hg]DO Tray RandlePrem[facility] Health [facility]08-17-2022 08:00-0400Inhaled oxygen flow rate3 L/Evelia Feliz [facility]06-16-2022 11:00-0400Body .64 cmCrispin Looney Other [employer] Other 06-16-2022 11:00-0400Body mass index (BMI) [Ratio] 29.81 kg/i9JlpyvCrispin Looney Other [facility] Other 06-16-2022 11:00-0400Body .78 kgCrispin Looney Other [facility] Other 06-16-2022 11:00-0400Diastolic blood xikkvmnl11 mm[Hg] Crispin Looney Other [facility] Other 06-16-2022 11:00-0400Respiratory rate18 /minCrispin Looney Other [employer] Other 06-16-2022 11:00-7594LvL3% (BldA) [Mass fraction]97 % Crispin Looney Other [facility] Other 06-16-2022 11:00-0400Systolic blood enaffeiu88 mm[Hg] Crispin Aayush Other [employer] Other 03-14-2022 14:30-0400Body ruockk926.64 cmTondra Mapus Other [employer] Other 03-14-2022 14:30-0400Body mass index (BMI) [Ratio] 30.34 kg/r2Kwqbvz [facility] Other [facility] Other 03-14-2022 14:30-0400Body mbaykc47.28 kgTondra Mapus Other [facility] Other 03-14-2022 14:30-0400Diastolic blood yfeqadif00 mm[Hg] Tondra Mapus Other [facility] Other 03-14-2022 14:30-0400Respiratory rate16 /minTondra Mapus Other [facility] Other 03-14-2022 14:30-8933IrH0% (BldA) [Mass fraction]97 % Tondra Mapus Other [employer] Other 03-14-2022 14:30-0400Systolic blood wnzbfwov83 mm[Hg] Tondra Mapus Other [employer] Other 03-07-2022 16:00-0500Body .64 [facility] Other [employer] Other 03-07-2022 16:00-0500Body mass index (BMI) [Ratio]30.5 kg/w5Jlbvj Katerynaban Other [facility] Other 03-07-2022 16:00-0500Body dcqmgtvobym41.5 [degF]Ruben Hahn Other [facility] Other 03-07-2022 16:00-0500Body tifhxx84.73 kgRuben Hahn Other [facility] Other 03-07-2022 16:00-0500Diastolic blood jrqotwov63 mm[Hg] Ruben Hahn Other [facility] Other 03-07-2022 16:00-0911BoV3% (BldA) [Mass fraction]99 % Ruben Hahn Other [facility] Other 03-07-2022 16:00-0500Systolic blood rdcukzeu62 mm[Hg] Ruben Hahn Other [facility] Other 01-10-2022 14:15-0500Body sfakhm006.64 cmAvnisonny Looney Other [facility] Other 01-10-2022 14:15-0500Body mass index (BMI) [Ratio] 30.87 kg/i6LxpobCrispin Looney Other [facility] Other 01-10-2022 14:15-0500Body nducpu07.77 kgCrispin Looney Other [facility] Other 01-10-2022 14:15-0500Diastolic blood mm[Hg] Crispin Looney Other [facility] Other 01-10-2022 14:15-0500Respiratory rate20 /minCrispin Looney Other [employer] Other 01-10-2022 14:15-8006AkV8% (BldA) [Mass fraction]98 % Crispin Looney Other [employer] Other 01-10-2022 14:15-0500Systolic blood mm[Hg] Crispin Looney Other [facility] Other 12-06-2021 15:00-0500Body ipdpuc642.64 cmMamonserrat Nava Other [facility] Other 12-06-2021 15:00-0500Body mass index (BMI) [Ratio] 30.99 kg/l8ZrbnuafTray Nava Other [facility] Other 12-06-2021 15:00-0500Body gvuipzgggiw54.3 [degF] Tray Nava Other [facility] Other 12-06-2021 15:00-0500Body xkevmo33.09 kgMattnorth Nava Other [facility] Other 12-06-2021 15:00-0500Diastolic blood mm[Hg] Tray Nava Other [facility] Other 12-06-2021 15:00-1578LuI6% (BldA) [Mass fraction]93 % Tray Nava Other [facility] Other 12-06-2021 15:00-0500Systolic blood xpfibjck026 mm[Hg] Tray Nava Other [facility] [employer] Other 11-29-2021 15:00-0500Body .64 cmTondra Mapus Other [employer] Other 11-29-2021 15:00-0500Body mass index (BMI) [Ratio] 30.99 kg/s0Xuaiva Mapus Other [facility] Other 11-29-2021 15:00-0500Body degktv23.09 kgTondra Mapus Other [facility] Other 11-29-2021 15:00-0500Diastolic blood wewmhdqv14 mm[Hg] [facility] 11-29-2021 15:00-0500Respiratory rate20 /minTondra Mapus Other [employer] Other 11-29-2021 15:00-4718VkG5% (BldA) [Mass fraction]97 % Tondra Mapus Other [facility] [employer] Other 11-29-2021 15:00-0500Systolic blood rlczubih715 mm[Hg] Tondra Mapus Other [facility] Other 11-01-2021 16:00-0400Body nsvxoe904.64 cmMamonserrat Nava Other [employer] Other 11-01-2021 16:00-0400Body mass index (BMI) [Ratio] 30.66 kg/u7KrmpomtTray Nava Other [place] [employer] Other 11-01-2021 16:00-0400Body avsudu36.18 kgMattnorth Nava Other [place] [employer] Other 11-01-2021 16:00-0400Diastolic blood yjdlulux90 mm[Hg] Tray Nava Other [facility] [employer] Other 11-01-2021 16:00-0400Systolic blood feskggrd123 mm[Hg] Tray Nava Other [facility] [employer] Other 05-01-2018 12:01-0400Body iyqprc882.18 cmDO Jonas Yoder Work Phone: [facility] Encounters Encounter DateEncounter TypeCare ProviderFacilityStart: 02-09-2025 End: 20-96-4769Lwjqdv outpatient visit 15 minutesLinwood Irwin MD Work Phone: noms [place] OBGYNComment on above:Encounter for gynecological examination; Vaginal lesionStart: 02-09-2025 End: 88-59-5076Pdeaduj encounter statusLinwood Irwin MD Work Phone: noFL HealthcareStart: 02-09-2025 End: 48-83-8268jsyfsvsalhEFOCKF P JONESNot AvailableStart: 02-02-2025 End: 86-52-3636Gslnth OnlyLinwood Irwin MD Work Phone: noms External Department UnsolicitedStart: 02-02-2025 End: 05-12-2982Zsygwa outpatient visit 10 minutesLinwood Irwin MD Work Phone: noms [place] OBGYNComment on above:Encounter for gynecological examination; Vaginal lesion; Encounter for gynecological examination without abnormal finding; Encounter for screening for cervical cancer; Breast cancer screening by mammogramStart: 02-02-2025 End: 12-83-8514Cvshamg encounter statusLinwood Irwin MD Work Phone: noms HealthcareStart: 02-02-2025 End: 75-47-0695Lkrxmmw encounter procedureShantel Norton APRN LITHOGRAPHIC PLATE MAKER APPRENTICE-CT Scan [facility] Work Phone: Start: 02-02-2025 End: 44-81-9398smvvmwoxumIfjuczdg Rohrbacher APRN Work Phone: [facility] Work Phone: Start: 01-19-2025 End: 56-64-6954zlodncfmxdTTPV D BEJNot AvailableStart: 01-19-2025 End: 61-13-9745Xdaxjw outpatient visit 15 minutesOz Kincaid MD Work Phone: noms [facility] NeurologyComment on above: Weakness of both lower extremities (Primary Dx); Carpal tunnel syndrome, bilateral; Cognitive decline; Cervical paraspinal muscle spasm; B12 deficiency; Guyon syndrome, unspecified lateralityStart: 01-19-2025 End: 84-88-3821Hpqffm Cecilia Kincaid MD Work Phone: noms NEUROLOGYStart: 01-19-2025 End: 77-17-6700Zjmqxv Cecilia Kincaid MD Work Phone: noms NEUROLOGYStart: 01-12-2025 End: 87-53-3403jndvbnnhkaYjbrwrgaHannah Norton APRN Work Phone: [facility] Work Phone: Start: 01-12-2025 End: 21-08-9786Asdfkdp encounter procedureShantel Norton APRN LITHOGRAPHIC PLATE MAKER APPRENTICE-FPG [facility] Work Phone: Start: 01-05-2025 End: 04-02-1519sedtpmqksnUdgoocczHannah Norton APRN Work Phone: [facility] Work Phone: Start: 01-05-2025 End: 58-04-4299Uakogwe encounter procedureAngelique Estephania Russell CLINICAL REVIEW SPECIALIST-C-[facility] Work Phone: Start: 12-31-2024 End: 30-32-5386mkcgxhiiflYINA D BEJNot AvailableStart: 73-89-2682Oly-patient / Non-visitDarasta Medina MD-[facility] Work Phone: Start: 12-30-2024 End: 88-96-1891Mvvzhq outpatient visit 15 minutesMolurdes Faust MD Work Phone: uh [facility] HealthComment on above:Typical atrial flutter (Multi) (Primary Dx); Nonischemic cardiomyopathy (Multi); Hypertension, unspecified type; Hypercholesteremia; Obesity (BMI 30-39.9); Current smokerStart: 12-30-2024 End: 79-99-0235vvdlqutzyfMGPIKXQJamaica [facility] AmbulatoryStart: 12-24-2024 End: 75-09-7457Nvgalkr encounter procedureDarasta Medina MD-Sleep Lab Work Phone: Start: 12-24-2024 End: 97-91-0159ydrjgzchwtJqbbma A Cherrish Work Phone: [facility] Work Phone: Start: 12-18-2024 End: 04-16-6372Hlnayve encounter Lenore Kincaid MD Work Phone: [facility] NeurologyComment on above: Numbness (Primary Dx); Paresthesias; Pain in both lower extremities; Lumbosacral radiculopathy at S7Yzput: 12-18-2024 End: 76-06-9176vzxthkdtxzMNTG D BEMattNot AvailableStart: 12-15-2024 End: 98-37-1226bphaeyxisaYsfhce A Keita DO Work Phone: [facility] Work Phone: Start: 12-15-2024 End: 79-68-9107Zzcblpn encounter procedureShantel Norton APRN LITHOGRAPHIC PLATE MAKER APPRENTICE-FPG [facility] Work Phone: Start: 12-11-2024 End: 88-06-3701lwfiaypdrsPTPO D BEJNot AvailableStart: 12-11-2024 End: 62-77-6908Znturjc encounter procedureOz Kincaid MD Work Phone: n[facility] [facility] NeurologyComment on above: Hand weakness (Primary Dx); Carpal tunnel syndrome, bilateralStart: 11-23-2024 End: 33-05-6622Ddfsfd outpatient visit 15 minutesKarl Fritz DPM Work Phone: noms [place] PodiatryComment on above:Ulcer of right foot with fat layer exposed (HCC) (Primary Dx); 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); Abscess of right foot; At increased risk for emergency hospital admissionStart: 11-23-2024 End: 82-92-9923hqosegowvwCTFRUWCSM H SMITHNot AvailableStart: 11-23-2024 End: 01-46-2028Cvmphw flowsheetKarl Fritz DPM Work Phone: noms [place] PodiatryStart: 11-23-2024 End: 82-70-5505Iqaryw flowsTayler Fritz DPM Work Phone: noms [place] PodiatryStart: 11-16-2024 End: 91-95-1242Uojjllaz ReferredKarl Fritz DPM-Lab [facility] Work Phone: Start: 11-16-2024 End: 57-37-2160Wbuvoj outpatient visit 25 minutesKarl Fritz DPM Work Phone: noms KOFI PODIATRYComment on above:Ulcer of right foot with fat layer exposed (HCC) (Primary Dx); 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); Cellulitis of right foot; Deformity of toe, rightStart: 11-16-2024 End: 29-57-7840pjbfoopqlcHkvkpt Rebecca Keita DO Work Phone: [facility] Work Phone: Start: 11-16-2024 End: 79-74-5898Ndsryiuv Result EncounterKarl Fritz DPM Work Phone: noms External Department UnsolicitedStart: 11-16-2024 End: 23-45-6339Fxzlrvsp Result EncounterCarebecca Fritz DPM Work Phone: noms External Department UnsolicitedStart: 11-09-2024 End: 63-98-9646iorxmiyotzNunyjdn Vytautas Giedraitis MDFacility:PM Ac Start: 10-31-2024 End: 00-39-4593NqlzglUxhn D Bej MD Work Phone: noms [facility] NEURO 111Comment on above:Neurogenic pain Start: 10-21-2024 End: 14-61-5818Vkrlxjzxy Umu Kincaid MD Work Phone: noms [facility] 111Start: 10-20-2024 End: 80-71-3058Cpoupa flowsheetKarl Fritz DPM Work Phone: noms [facility] PODIATRYStart: 10-20-2024 End: 10-78-3536Hfqwer flowsTayler Fritz DPM Work Phone: noms [facility] PODIATRYStart: 10-20-2024 End: 26-21-2597Naywhd outpatient visit 25 minutesCarebecca Fritz DPM Work Phone: noms [facility] PODIATRYComment on above:Ulcer of right foot with fat layer exposed (HCC) (Primary Dx); 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); Blister of right foot, initial encounter; Deformity, foot, rightStart: 10-20-2024 End: 35-94-8555plchvtfyynTJZIKVXPX H SMITHNot AvailableStart: 10-07-2024 End: 28-81-8579Bythyoazm Umu Kincaid MD Work Phone: noms [facility] 111Start: 10-06-2024 End: 45-33-3320Bkohkh flowsMelania Kincaid MD Work Phone: NOM[facility] BM NEUROLOGYStart: 10-06-2024 End: 85-57-3159Lqhwdz flowsMelania Kincaid MD Work Phone: noMS BM NEUROLOGYStart: 10-06-2024 End: 98-62-1500Dwtnzg outpatient visit 25 minutesOz Kincaid MD Work Phone: [facility] SWS NEUR BComment on above:Weakness of both lower extremities (Primary Dx); Carpal tunnel syndrome, bilateral; Cognitive decline; Cervical paraspinal muscle spasm; B12 deficiency; Guyon syndrome, unspecified laterality; Numbness; Leg pain, left; Leg pain, right; Bilateral leg weaknessStart: 10-06-2024 End: 23-43-9536ctjuewyonhPPJU D BEJNot AvailableStart: 10-05-2024 End: 64-70-4610pdsvadvnieVpaxexl Romario Roldaneditis Facility:PM Ac Start: 10-01-2024 End: 77-30-9064cgopruretnWakvdx A Debbie DO Work Phone: [facility] Work Phone: Start: 10-01-2024 End: 51-29-2870Dfuhywl encounter procedureGloria Keita DO Work Phone: [facility] Work Phone: Start: 90-03-3228Ery-patient / Non-visitGloria Keita DO Work Phone: [facility] Work Phone: Start: 09-10-2024 End: 01-71-0026Bgacrptfu to same day surgery centerGloria Keita DO Work Phone: [facility]-Digestive Health Work Phone: Start: 09-10-2024 End: 44-73-7813jdcflbowkwBasvqv A Keita DO Work Phone: [facility] Work Phone: Start: 09-07-2024 End: 86-96-9390ufhnnqdspjGucyxt A Keita DO Work Phone: [facility] Work Phone: Start: 09-07-2024 End: 82-14-4377Kfzfglg encounter procedureGloria Keita DO Work Phone: [facility] Neurosurgery Work Phone: start: 08-25-2024 End: 84-33-8414kzlkbfbtxuWdbrbu A Keita DO Work Phone: [facility] Work Phone: Start: 08-25-2024 End: 76-63-7028Dvbfext encounter procedureGloria Keita DO Work Phone: [facility] Work Phone: Start: 08-20-2024 End: 45-16-8284mgfniefpcbOibgbw A Keita DO Work Phone: [facility] Work Phone: Start: 08-20-2024 End: 92-91-4196Yrzaxme encounter procedureGloria Keita DO Work Phone: [facility] Work Phone: Start: 07-22-2024 End: 13-39-7255Zujbpkg encounter procedureGloria Keita DO Work Phone: [facility] Vascular Surg Work Phone: Start: 07-22-2024 End: 74-75-9654cecawncphdLoxpub A Keita DO Work Phone: [facility] Work Phone: Start: 07-21-2024 End: 23-85-9507Xucqvt outpatient visit 15 minutesOz Kincaid MD Work Phone: noms SWS NEUR BComment on above:Cognitive decline (Primary Dx); Cervical paraspinal muscle spasm; B12 deficiency; Carpal tunnel syndrome, bilateral; Guyon syndrome, unspecified laterality; Neurogenic painStart: 07-21-2024 End: 56-38-2867nlzyambjgvXQFM D BEJNot AvailableStart: 07-06-2024 End: 56-33-5937znqlklbxnmQpdnwn A Cherrish Work Phone: [facility] Work Phone: Start: 07-06-2024 End: 06-10-7830Jztiwxil ReferredGloria [employer] DO Work Phone: [facility]-LAB Path Spec Ac HospStart: 06-26-2024 End: 04-75-9448Jxvexjei Result EncounterMarkarlos Jane [facility] Other Phone: noms External Department UnsolicitedStart: 06-26-2024 End: 01-58-8459Ygvnsizv Result EncounterMarkarlos Jane [facility] DEPART[facility] Other Phone: noms External Department UnsolicitedStart: 06-26-2024 Registered RecurringGloria Keita DO Work Phone: [facility]-Cancer Center Acute Work Phone: Start: 06-26-2024 End: 25-70-0613Uiiprdr encounter procedureGloria Keita DO Work Phone: [facility]-Lab Main [place] Work Phone: Start: 06-26-2024 End: 23-29-1323maabgomwuxWrutgi A Keita DO Work Phone: [facility] Work Phone: Start: 06-26-2024 End: 72-99-2542Ogjasz outpatient visit 25 minutesRoland Faust MD Work Phone: uh [facility] HealthComment on above:Typical atrial flutter (Multi) (Primary Dx); Nonischemic cardiomyopathy (Multi); Hypercholesteremia; Hypertension, unspecified type; BMI 32.0-32.9,adult; Current smokerStart: 06-26-2024 End: 83-46-0699vvlzayijmxMGGXYWRArch[facility] AmbulatoryStart: 09-86-0646Ppy-patient / Non-visitGloria Keita DO Work Phone: [facility] Work Phone: Start: 05-25-2024 End: 35-23-8680Tstwghv encounter procedureGloria Keita DO Work Phone: [facility]-MRI Main [place] Work Phone: Start: 05-25-2024 End: 68-69-1220jleytyesfqFmldkt A Keita DO Work Phone: [facility] Work Phone: Start: 05-19-2024 End: 11-33-0785Tzeujwkbi encounterOz Kincaid MD Work Phone: noms [facility] 111Start: 05-07-2024 End: 12-20-9839tcxkzthhznZuvaxf A Keita DO Work Phone: [facility] Work Phone: Start: 05-07-2024 End: 52-44-6570Dhamdnj encounter procedureGloria Keita DO Work Phone: [facility] Work Phone: Start: 04-28-2024 End: 41-10-2712Dybatuosni and management of inpatientGloria Keita DO Work Phone: [facility] [place] [facility] S[facility] Work Phone: Start: 04-28-2024 End: 53-54-0045yxpcddhkaaBdkdjf A Debbie DO Work Phone: [facility] Work Phone: Start: 04-28-2024 End: 57-82-1925Jqnomaq encounter procedureGloria Debbie DO Work Phone: [facility] [place] Work Phone: Start: 04-28-2024 End: 33-07-9694Zvsrwzj encounter procedureGloria Debbie BONNER Work Phone: [facility] Work Phone: Start: 04-27-2024 End: 92-46-0487Jnkpqtrli department patient visitGloria Debbie BONNER Work Phone: [facility]-Emergency Room Work Phone: Start: 04-14-2024 End: 48-20-8570Xsyewgkw Result EncounterMarkarlos Estephania Lucinda [employer] DEPART[facility] Work Phone: noms External Department UnsolicitedStart: 04-14-2024 End: 12-58-9659Qctsbqdu Result EncounterMarkarlos Estephania Lucinda [employer] DEPARTMENT Work Phone: noms External Department UnsolicitedStart: 04-14-2024 End: 36-64-2719Wroobvp encounter procedureGloria Debbie BONNER Work Phone: [facility] Work Phone: Start: 04-08-2024 End: 03-70-4390Broumdy encounter procedureKarl Fritz DPM Work Phone: noms SWS PODIATRYComment on above:Ulcer of right foot, limited to breakdown of skin (CMS/HCC) (Primary Dx); Ulcer of right foot with fat layer exposed (CMS/HCC); 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)Start: 04-08-2024 End: 25-03-2448rgklxkoxdpIBLJPKYAI H SMITHNot AvailableStart: 04-07-2024 End: 07-64-0134Thagwh Cecilia Kincaid MD Work Phone: noms BM NEUROLOGYStart: 04-07-2024 End: 13-26-5366Tmuecr Cecilia Kincaid MD Work Phone: noms BM NEUROLOGYStart: 04-07-2024 End: 23-27-5144Iujgwb outpatient visit 15 minutesOz Kincaid MD Work Phone: noms SWS NEUR BComment on above:Cognitive decline (Primary Dx); B12 deficiency; Neurogenic pain; Carpal tunnel syndrome, bilateral; Cervical paraspinal muscle spasm; Guyon syndrome, unspecified laterality; GranulocytosisStart: 04-07-2024 End: 86-61-9136anlvwoaeznLWCP D BEJNot AvailableStart: 03-25-2024 End: 72-86-9968fjweybpddzONKVRKWArchbold - [facility] AmbulatoryStart: 03-25-2024 End: 73-64-8446Egjvcz outpatient visit 10 minutesMolurdes Faust MD Work Phone: [facility]:Hypertension, unspecified type; Typical atrial flutter (Multi)Start: 02-25-2024 End: 21-90-8302Qbkgyv outpatient visit 25 minutesOz Kincaid MD Work Phone: noms SWS NEUR BComment on above:Cognitive decline (Primary Dx); Neurogenic pain; Carpal tunnel syndrome, bilateral; B12 deficiencyStart: 02-25-2024 End: 61-34-4080Lmrwto Cecilia Kincaid MD Work Phone: noms BM NEUROLOGYStart: 02-25-2024 End: 63-37-6624Mhicxb Cecilia Kincaid MD Work Phone: noms BM NEUROLOGYStart: 02-25-2024 End: 11-54-1518pbbgaundioQEWF D BEJNot AvailableStart: 02-14-2024 End: 60-82-9617huukppdxxjOqkasw [facility]: 02-14-2024 End: 01-77-7958Wwdwuehr ReferredSandra Keita DO Work Phone: [facility]-Digestive Health Work Phone: Start: 02-10-2024 End: 81-85-9639Gusrxc flowsTayler Fritz DPM Work Phone: noms SWS PODIATRYStart: 02-10-2024 End: 08-56-8427Cegxmy flowsTayler Fritz DPM Work Phone: noms SWS PODIATRYStart: 02-10-2024 End: 25-79-4544Varvxl outpatient visit 15 minutesCasshenny Fritz DPM Work Phone: noms SWS PODIATRYComment on above:Ulcer of right foot, limited to breakdown of skin (CMS/HCC) (Primary Dx); Blister of right foot, subsequent encounter; 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); Ulcer of right foot with fat layer exposed (CMS/HCC)Start: 02-03-2024 End: 16-91-4002vfqdpffgcmEY Sandra Keita Work Phone: [facility] Work Phone: Start: 02-03-2024 End: 50-88-7196Lhswzry encounter procedureDO Sandra Keita Work Phone: [facility] Family Medicine [place] Work Phone: Start: 01-27-2024 End: 46-89-6327Rbcqyr Amalia Fritz DPM Work Phone: noms [facility] PODIATRYStart: 01-27-2024 End: 06-31-4285Shbueo Amalia Fritz DPM Work Phone: noms [facility] PODIATRYStart: 01-27-2024 End: 08-80-0803Euatqf outpatient visit 15 minutesCassandra H Fritz DPM Work Phone: noms [facility] PODIATRYComment on above:Ulcer of right foot, limited to breakdown of skin (CMS/HCC) (Primary Dx); Blister of right foot, subsequent encounter; 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)Start: 01-21-2024 End: 05-58-3567Gnuvmx flowsTayler Fritz DPM Work Phone: noms [facility] PODIATRYStart: 01-21-2024 End: 05-62-5549Zvybdq flowsTayler Fritz DPM Work Phone: noms [facility] PODIATRYStart: 01-21-2024 End: 35-47-5219Evcigp outpatient visit 15 minutesCarebecca ZUNIGAM Work Phone: noms [facility] PODIATRYComment on above:Ulcer of right foot, limited to breakdown of skin (CMS/HCC) (Primary Dx); Blister of right foot, initial encounter; 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 ([facility]/HCC)Start: 01-15-2024 End: 30-82-8253eazkadkxiaRD Sandra Keita Work Phone: [facility] Work Phone: Start: 01-15-2024 End: 82-90-7185Jtizapw encounter procedureDO Sandra Keita Work Phone: [facility] Neurosurgery Work Phone: start: 01-08-2024 End: 86-08-9549Xtkwczdca encounterzO Kincaid MD Work Phone: noms [facility]O 111Start: 01-07-2024 End: 71-94-7100Wvkutn flowsTayler ZUNIGAM Work Phone: noms [facility] PODIATRYStart: 01-07-2024 End: 36-04-1959Hhvobl Amalia Fritz DPM Work Phone: noms [facility] PODIATRYStart: 01-07-2024 End: 32-67-1584Jfnvjh outpatient visit 25 minutesOz Kincaid MD Work Phone: noms [facility] NEUR BComment on above:Lumbosacral radiculopathy at S1 (Primary Dx); Neurogenic pain; Cervical paraspinal muscle spasm; Lumbar paraspinal muscle spasm; Carpal tunnel syndrome, bilateral; B12 deficiencyStart: 01-07-2024 End: 25-60-4743htifdtjdbsCG Gloria A Keita Work Phone: [facility] Work Phone: Start: 01-07-2024 End: 42-15-1307Ceyofunu ReferredDO Flores [facility] Work Phone: [facility]-Lab Main [place] Work Phone: Start: 01-07-2024 End: 82-84-5252Ejjohs outpatient visit 25 minutesKarl Fritz DPZenon Work Phone: noms [facility] PODIATRYComment on above:Ulcer of right foot, limited to breakdown of skin (CMS/HCC) (Primary Dx); Cellulitis of right footStart: 01-06-2024 End: 35-81-4472wuvvmtjhqlHH Gloria A Keita Work Phone: [facility] Work Phone: Start: 01-06-2024 End: 04-04-4166Nlattcm encounter procedureDO Flores Keita Work Phone: [facility]-Ultrasound Main [place] Work Phone: Start: 01-03-2024 End: 87-69-0549Dfyjqnsk SupportOz Kincaid MD Work Phone: noms [facility] NEUR BComment on above:Carpal tunnel syndrome, bilateral (Primary Dx)Start: 01-03-2024 End: 73-19-2709Iwxihc flowsheetOz Kincaid MD Work Phone: noms NEUROLOGYStart: 01-03-2024 End: 96-60-3240Bknhfv flowsheetMark D Codi VARGAS Work Phone: noms NEUROLOGYStart: 12-17-2023 End: 39-82-9325ddxoeyqxnsYA Sandra A [facility] Work Phone: [facility] Work Phone: Start: 12-17-2023 End: 26-16-0778Iwhllpt encounter procedureDO Sandra [facility] Work Phone: [facility]-MRI [address] Work Phone: Start: 12-16-2023 End: 34-56-3641Zjtpus outpatient visit 25 minutesMolurdes Faust MD Work Phone: uh [facility] HealthComment on above:High risk medication use (Primary Dx); Typical atrial flutter (Multi); Nonischemic cardiomyopathy (Multi); Hypercholesteremia; BMI 28.0-28.9,adult; BMI 30.0-30.9,adult; Current smokerStart: 12-02-2023 End: 19-55-5751vshdnexkbvUV Sandra A [facility] Work Phone: [facility] Work Phone: Start: 12-02-2023 End: 73-06-7835Zptdciu encounter procedureDO Sandra Keita Work Phone: [facility]-Lab Main [place] Work Phone: Start: 11-26-2023 End: 34-80-3258qjwrqfrtknPE Sandra A Keita Work Phone: [facility] Work Phone: Start: 11-26-2023 End: 99-03-9732Jupjbbw encounter procedureDO Sandra [facility] Work Phone: [facility]-Lab Main [place] Work Phone: Start: 11-26-2023 End: 88-93-2310Dihvpsjw Result EncounterOz Kincaid MD Work Phone: noms External Department UnsolicitedStart: 11-26-2023 End: 88-29-9466Zxtfrllu Result EncounterOz Kincaid MD Work Phone: noms External Department UnsolicitedStart: 11-18-2023 End: 90-03-8340qgrsukvffsIZ Sandra A [facility] Work Phone: [facility] Work Phone: Start: 11-18-2023 End: 06-46-9378Lwrvaao encounter procedureDO Sandra [facility] Work Phone: [facility] Family Medicine [place] Work Phone: Start: 96-90-3092Qaq-patient / Non-visitDO Sandra [facility] Work Phone: [facility] Pulmonary Disease Work Phone: Start: 11-15-2023 End: 14-29-4067aqfldhpbrlQJ Sandra A [facility] Work Phone: [facility] Work Phone: Start: 11-15-2023 End: 50-18-0611Wqtuxua encounter procedureDO Sandra Keita Work Phone: [facility]-Respiratory Therapy Work Phone: Start: 11-14-2023 End: 16-47-3660aoplejpwiwNU Sandra A [facility] Work Phone: [facility] Work Phone: Start: 11-14-2023 End: 09-17-1876Dflbkmf encounter procedureDO Sandra [facility] Work Phone: [facility] Work Phone: Start: 11-13-2023 End: 03-38-0524Yvedkx outpatient visit 25 minutesJonas Ch MD Work Phone: [facility] on above:Nonischemic cardiomyopathy (Multi) (Primary Dx); Typical atrial flutter (Multi); Hypercholesteremia; Primary hypertension; Current smoker; BMI 28.0-28.9,adult; High risk medication useStart: 92-31-4764Siq-patient / Non-visitDO Sandra Keita Work Phone: [facility] [place] Work Phone: Start: 11-10-2023 End: 76-66-9832Ucswqnkvjs and management of inpatientDO Sandra Keita Work Phone: [facility] Work Phone: Start: 11-05-2023 End: 23-80-5824Hdgbefvuw to same day surgery centerDO Sandra Keita Work Phone: [facility]-Electrodiagnostics Work Phone: Start: 11-05-2023 End: 02-89-3117emewrxtvpvHI Sandra Rebecca Keita Work Phone: [facility] Work Phone: Start: 10-30-2023 End: 02-76-8558Htmqmfsl Result EncounterOz Kincaid MD Work Phone: noms External Department UnsolicitedStart: 10-30-2023 End: 27-96-5962Bxezapmr Result EncounterOz Kincaid MD Work Phone: noms External Department UnsolicitedStart: 10-30-2023 End: 19-55-5582isaoigljrsSM Gloria A Johns Work Phone: [facility] Work Phone: Start: 10-30-2023 End: 39-99-0647Qjfmytk encounter procedureDO Sandra Keita Work Phone: [facility]-XRay [facility] Work Phone: Start: 10-07-2023 End: 94-70-7166Wvmsel outpatient visit 25 minutesJonas Ch MD Work Phone: uh [facility] HealthComment on above:Typical atrial flutter (Multi); Nonischemic cardiomyopathy (Multi); Hypertension, unspecified type; Hypercholesteremia; Smoker; Type 2 diabetes mellitus with other specified complication, 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); BMI 28.0-28.9,adultStart: 09-17-2023 End: 62-06-4010avflowkmvrRM Sandra Keita Work Phone: [facility] Work Phone: Start: 09-17-2023 End: 71-50-7893Jkxjozb encounter procedureDO Sandra Keita Work Phone: [facility] [place] Work Phone: Start: 47-27-9576Tly-patient / Non-visitDO Sandra Keita Work Phone: [facility] [place] Work Phone: Start: 09-14-2023 End: 29-25-0731Esd-patient / Non-visitDO Sandra Keita Work Phone: [facility] Work Phone: Start: 09-13-2023 End: 12-95-4041Zlvszgydhk and management of inpatientDO Sandra Keita Work Phone: [facility] [place] [facility] Work Phone: Start: 09-12-2023 End: 62-77-9932Iuphduw encounter procedureDO Sandra Keita Work Phone: [facility] Work Phone: Start: 86-20-2905Ryp-patient / Non-visitDO Sandra Keita Work Phone: [facility] Family [facility] [place] Work Phone: Start: 09-05-2023 End: 53-81-7646zsuqzyeeevLH Sandra Rebecca Keita Work Phone: [facility] Work Phone: Start: 09-05-2023 End: 43-49-8184Vlvqtni encounter procedureDO Sandra Keita Work Phone: [facility]-Lab [facility] [place] Work Phone: Start: 07-25-2023 End: 30-59-2486gwpswqqoyjEF Sandra Rebecca Keita Work Phone: [facility] Work Phone: Start: 07-25-2023 End: 45-50-0884Jlcfehi encounter procedureDO Sandra Keita Work Phone: [facility]-[address] Work Phone: Start: 07-17-2023 End: 11-74-3119mgwicnzvhqSngemritgSt. John of God Hospital Work Phone: Start: 07-17-2023 End: 92-83-5599Cptxkjk encounter procedureAtrium Health Phys[facility]ED[facility] Work Phone: Start: 06-19-2023 End: 55-48-7086xzzirotsfxMjcqikkhbSt. John of God Hospital Work Phone: Start: 06-19-2023 End: 79-78-7763Lffmzvv encounter procedureAtrium Health Phys[facility] GroupS[facility] Work Phone: Start: 06-12-2023 End: 10-05-8280izejeurvqxFappxuagvSt. [facility] of [facility] Hospital Work Phone: Start: 06-12-2023 End: 10-46-4421Eqjrirp encounter [facility] Work Phone: Start: 06-10-2023 End: 23-19-6038eqiqyqbmiaHucciq Leonardous Other [employer] Other Start: 79-61-5094Nswnkzhli encounterTondra [place] ClinicStart: 05-21-2023 End: 85-89-5776ydugzwazvsVpwrgu Keita Other [facility] [employer] Other Start: 64-38-1418Krukvjcqo encounterGloria JohnsLos Angeles County High Desert HospitalyStart: 04-30-2023 End: 03-88-8504xwuakapwpxXotbyr Mapus Other [facility] [employer] Other Start: 82-09-3633Jaoeksewj encounterTondra [place] ClinicStart: 04-11-2023 End: 24-37-6074xwuihdflijBohxxz Keita Other [employer] Other Start: 90-01-0207Hksqqlsxs encounterGloria JohnsLos Angeles County High Desert HospitalyStart: 04-08-2023 End: 04-32-0787mzywknpoftUafwpy Keita Other [employer] Other Start: 13-74-6910Osdcpisga encounterGloria JohnsLos Angeles County High Desert HospitalyStart: 03-05-2023 End: 96-56-1499uwtlzcvqaqAA Jonas Yoder Work Phone: [facility] Work Phone: Start: 03-05-2023 End: 45-89-2706Rukxbwx encounter procedureDO Jonas Yoder Work Phone: [facility] Work Phone: Start: 03-04-2023 End: 35-34-2821ryjgzdlkcmIsoubp Johns Other [employer] Other Start: 68-15-3312Hkgpns outpatient visit 25 minutes Sandra DebbieLos Angeles County High Desert HospitalyStart: 01-28-2023 End: 12-11-3723juvppdqfswTvjmip Debbie Other [facility] [employer] Other Start: 59-34-0068Nrbmpxzem encounterGloria Metropolitan HospitalyStart: 08-94-6103Bcnplbqned RecurringDO Jonas Yoder Work Phone: [facility] Work Phone: Start: 01-07-2023(DM) DiabetesTondra [facility] Companytart: 01-07-2023 End: 27-82-0461gnfqctuilnIwkabi Mapus Other [employer] Other Start: 01-02-2023 End: 36-81-6275hjlxtqdlvcDuopzuni McCormack Other [facility] [employer] Other Start: 79-93-3338Iziohj outpatient visit 15 minutes Brayden Rzd GastroenterologyStart: 12-28-2022 End: 94-38-1120cchfoydlqoHtgccx Debbie Other [facility] [employer] Other Start: 92-94-2900Ohfclmyuk encounterGloria Metropolitan HospitalyStart: 12-18-2022 End: 94-24-7924hhmcocqpjyJdkxdpa Schwerer Other [employer] Other Start: 37-43-4538Loluhxozn encounterKaitlin Schwerer [facility] HospitalyStart: 12-10-2022 End: 10-80-9820scxtgxkgogMbbwoz Mapus Other [employer] Other Start: 84-07-6999Pwoiunqvg encounterTondra Mapus [facility] Care ClinicStart: 11-28-2022 End: 87-00-6707ntfgnpbwbdRasjpv Keita Other [employer] Other Start: 98-36-5949Gqvbhvs encounter procedureGloria JohnsLos Angeles County High Desert HospitalyStart: 11-27-2022 End: 31-61-6376ppojnuilzzDfedrb Keita Other [employer] Other Start: 10-52-7840Fuqrvuvgq encounterGloria JohnsLos Angeles County High Desert HospitalyStart: 11-06-2022 End: 62-49-4219inapjkizdiTacxsx Keita Other [employer] Other Start: 74-60-2166Hutpdbqwb encounterGloria JohnsLos Angeles County High Desert HospitalyStart: 09-27-2022(DM) DiabetesTondra MapusFirelands [facility] Care ClinicStart: 09-27-2022 End: 15-93-5904wpwjouhbbiCglowe Mapus Other [employer] Other Start: 09-10-2022 End: 75-17-7238edfvvaeiqtNbbmvt Keita Other [employer] Other Start: 88-40-2277Kdlykjyyz encounterGloria Metropolitan HospitalyStart: 32-20-6627Ukxswkuwu encounterGloria Metropolitan HospitalyStart: 09-05-2022 End: 62-99-0507nipyvnztnqZI Sandra A Debbie Work Phone: [facility] Work Phone: Start: 09-05-2022 End: 52-94-3177Tfzjcwx encounter procedureDO Sandra Keita Work Phone: [facility] Work Phone: Start: 11-16-0322Grufnjlhf encounterGloria Metropolitan HospitalyStart: 08-22-2022 End: 34-57-7390tmorevryyzBI Sandra A Keita Work Phone: [facility] Work Phone: Start: 08-22-2022 End: 69-88-8728Fumbagd encounter procedureDO Sandra Debbie Work Phone: [facility]-[address] Work Phone: Start: 08-09-2022 End: 10-22-6029cjwxhsgursFzqrie Debbie Other [employer] Other Start: 27-38-5650Ipppkp outpatient visit 15 minutes Sandra DebbieLos Angeles County High Desert HospitalyStart: 08-06-2022 End: 89-42-2142tgffjnniljCvjyiz Debbie Other [employer] Other Start: 21-47-2187Jahovgxlk encounterGloria Metropolitan HospitalyStart: 07-10-2022 End: 75-66-7409amjxnqpcozSzbuma Debbie Other [employer] Other Start: 92-64-2511Pcnaiwspx encounterGloria DebbieLos Angeles County High Desert HospitalyStart: 07-04-2022 End: 00-54-1203wiwqzjqbowCiwihpq Rita Other [employer] Other Start: 79-65-2914Emejrdxcd encounterRichard RitaLos Angeles County High Desert HospitalyStart: 06-19-2022 End: 16-05-0449jfxrsyypptPalrpg Mapus Other [facility] [employer] Other Start: 53-71-3136Ondpppkut encounterTondra [facility]us [facility] Care ClinicStart: 06-18-2022(DM) DiabetesTondra [facility] Centerus [facility] Care ClinicStart: 06-18-2022 End: 10-83-9291uabnvincvzEtmozi Mapus Other [facility] [employer] Other Start: 06-14-2022 End: 25-82-4596wjzgiezfxyZsgrkd [employer] Other [employer] Other Start: 74-39-7101Gfprhxzcd encounterTondra Leonardous [facility] Care ClinicStart: 06-08-2022 End: 89-17-0514cnmrjvojkuBazirk Mapus Other [employer] Other Start: 55-58-8212Wryylzgyk encounterTondra Mapus [facility] Care ClinicStart: 06-04-2022 End: 05-70-2785dweqlqwkpaKodlml Keita Other [employer] Other Start: 81-96-0834Qedumovad encounterGloria DebbieLos Angeles County High Desert HospitalyStart: 05-30-2022 End: 32-54-7145rpepfirdwvDgoapq Keita Other [employer] Other Start: 28-47-4010Yqpcjlkea encounterGloria Metropolitan HospitalyStart: 05-24-2022 End: 66-17-6504kubrnctykdZesklp Keita Other [employer] Other Start: 43-18-2826Nzkjzlwiu encounterGloria [facility] SandarcadiayStart: 04-03-2022 End: 17-50-3209trqxpsywksHoeqfr Keita Other [employer] Other Start: 06-94-7923Iicqbgbxh encounterGloria Metropolitan HospitalyStart: 02-14-2022 End: 74-22-7159zzijnqlpduVxkjgn Keita Other [employer] Other Start: 52-40-9653Wjfyrvrup encounterGloria Metropolitan HospitalyStart: 01-09-2022(DM) DiabetesJuliodra Ana Cristina [facility] Care ClinicStart: 01-09-2022 End: 88-84-2242jmoklokvdzNrjqwe Mapus Other [employer] Other Start: 94-81-8053fqitgmhgamRpnah M. LueFacility: SanduskyStart: 75-46-2084bugbqlhzdjYgiommno A ClemonsFacility:ENRIQUE CopelandkStart: 12-17-2021 End: 40-09-2238Qdslwfusz department patient visitDO Tray Corderosilver springsjaqueline [facility]-Emergency RoomStart: 71-95-6806tuzvoejnwkCznfalny Clemons Facility:EU [place]kyStart: 12-12-2021 End: 74-77-7336opbpfcdavoQICHNR AHUJAFacility::[id number]: 12-11-2021 End: 32-52-9424nsiqpdzafvIPDVJG AHUJAFacility:CD:[id number]: 12-09-2021 End: 80-73-6018Pijaytqigc and management of inpatientDO Tray Randle [facility] [place] [facility] SurgStart: 10-12-2021 End: 53-92-9874zipioifnspHkzei Carnahan Other nortDancingAnch[employer] Other Start: 31-73-2727Swlkzfe encounter procedureKesonny LeephillHON[facility] Family Medicine [place]kyStart: 34-90-7739Ovaampgks encounterKevin RosaphillHON[facility]HE[facility] Family Medicine [place]kyStart: 09-13-2021 End: 75-97-8233nbwpvugfjkHonas Carnahan Other [employer] Other Start: 29-85-1029Pbeqyvbsg encounterKevin RosaFuller Hospital Family Medicine [place]kyStart: 08-28-2021 End: 20-81-1920laczulijfcGgrage Mapus Other [employer] Other Start: 15-33-1121Utlsuiwgd encounterTondra MapusFPG EndocrinologyStart: 07-10-2021(DM) DiabetesTondra LeonardousFirelands Coordinated Care ClinicStart: 07-10-2021 End: 51-19-6882xnvwueafauWlcuwj Mapus Other [employer] Other Start: 07-03-2021 End: 92-92-8131ibyjxxvmydGneso [facility] Other [employer] Other Start: 46-73-2682Pbtxjo outpatient [facility] 30 [facility] JovaniCleveland Clinic Foundation Ctr SouthStart: 06-28-2021 End: 94-46-9279yqrdgrbllvBkohr Carnahan Other [employer] Other Start: 62-86-5824Ypisqkicg encounterKesonny LooneyAndre [facility] Twain St. JosephyStart: 05-25-2021 End: 22-60-2332oqnuyykmifVwmbh Carnahan Other [employer] Other Start: 15-30-6160Zljgydkhk encounterKesonny LooneyLos Angeles County High Desert HospitalyStart: 05-08-2021 End: 44-86-5339vysolmtpfyZpifv Carnahan Other [facility] [employer] Other Start: 83-63-8495Rsvogn outpatient new 45 minutesAvnisonny LooneyLos Angeles County High Desert HospitalyStart: 04-11-2021 End: 71-59-8594rsmoxeyskmLiqirj Mapus Other [facility] [employer] Other Start: 42-11-2941Tvomepebs encounterTondra [facility] Care ClinicStart: 04-03-2021 End: 38-76-1955udejjzisqoVqnbzxc Langenberg Other [facility] [employer] Other Start: 11-95-1864Irvhug outpatient visit 15 minutes Tray Nur Vascular SurgeryStart: 03-27-2021(DM) DiabetesTondra [facility] Coordinated Care ClinicStart: 03-27-2021 End: 89-30-6949fqaplnhdltWejckr Mapus Other [employer] Other Start: 02-27-2021 End: 02-31-3276xnyvttdkxuAhsldmh Langenberg Other [facility] [employer] Other Start: 07-18-4226Tofubc outpatient visit 15 minutes Tray Nur Vascular SurgeryStart: 05-16-2017 End: 87-87-3966XyotuhnawcSEOE MD JOHNSONFacility:UNKNOWNStart: 01-25-2017 End: 91-38-4122SpczvcxcfbYMCXW ST[facility]HTON HOSPITALFacility:H1 Procedures DateProcedureProcedure DetailPerforming ClinicianStart: 30-66-1431QR of lungs Shantel Yeesandra GODDADR Work Phone: Start: 02-34-8180NGJTQTZLLGFCG SMEAR CYTOLOGYLinwood Irwin MD Work Phone: start: 10-48-9399Mbuex foot complete minimum 3 views Karl Fritz DPM Work Phone: start: 38-33-3427RFRSOJMNMHM WOUND CULTURE ([facility]) Karl Fritz DPM Work Phone: start: 79-53-9550Jcpbtdu microbial cultureGloria Cherrish Work Phone: Start: 25-14-7554QftwcmndfvmkipwofojwjrtseqRaibzo Keita LaTherm Work Phone: Start: 01-81-8352Uouce cultureGloria Keita LaTherm Work Phone: Start: 73-61-4730Rqupvebb blood count with white cell differential, Joelle Jane NP Other Phone: Start: 14-82-0990Ahu routine ecg w/least 12 lds w/i&r Roland Faust MD Work Phone: Start: 32-07-5682JIA of headGloria Keita LaTherm Work Phone: Start: 70-94-3414Aatbl cultureGloria Keita DO Work Phone: Start: 67-49-6938OS angiography of headGloria Keita DO Work Phone: Start: 67-65-7501WE angiography of neck vesselsGloria Keita DO Work Phone: Start: 83-99-8498AN of head without contrastGloria Keita DO Work Phone: Start: 34-27-6250Pqeng chest X-rayGloria Debbie DO Work Phone: Start: 10-29-4642Tndmhhhnjgy Panel (PCR)Sandra Keita DO Work Phone: Start: 27-56-1206Xqlvpmcr blood count with white cell differential, automatedNataliya Best Lucinda [employer] Work Phone: Start: 27-77-7850Qtbvzebyutepx metabolic panelNataliya Best Lucinda [employer] Work Phone: Start: 81-04-0469FJHQWOJUDMD SLIDE REVIEW ([facility])Nataliya Best Lucinda [employer] Work Phone: Start: 51-94-9161Fwe routine ecg w/least 12 lds w/i&r Roland Faust MD Work Phone: Start: 29-06-9816Ikkhknp microbial cultureDO Sandra Keita Work Phone: Start: 09-12-1566Afitra scan of lower limb veinsDO Sandra Keita Work Phone: Start: 69-68-4306PX lumbar spine wo conDO Sandra Keita Work Phone: Start: 56-04-8073AK pre/post mri xrayDO Sandra Keita Work Phone: Start: 13-99-9413Exc routine ecg w/least 12 lds w/i&r Roland Faust MD Work Phone: Start: 57-73-5808QGXP PROFILE (ANCA+MPO+PR3)Oz Kincaid MD Work Phone: start: 39-73-3181WPMX-CENTROMERE B ANTIBODIESOz Kincaid MD Work Phone: start: 61-14-8596WEZC-DSDNA(DBL)ABOz Kincaid MD Work Phone: start: 98-10-7193YDES-RNPMark Lillian Kincaid MD Work Phone: start: 57-27-8616Jjvlorputis antibodies anaOz Kincaid MD Work Phone: Gtart: 69-71-7638UWKESIXTRHSDV P ANTIBODIESOz Kincaid MD Work Phone: start: 70-55-5040ASSBYYZ ANTIBODIESOz Kincaid MD Work Phone: Start: 29-01-7370Uqmnmrefcfr analyte qual/semiqual multiple stepOz Kincaid MD Work Phone: start: 90-87-9419VL-1 ANTIBODYOz Kincaid MD Work Phone: Dtart: 59-25-1831TFIOSJJ AND PYRUVATEMark Lillian Kincaid MD Work Phone: start: 36-49-0427ZKMEVUSLQRD 70 ANTIBODIESOz Kincaid MD Work Phone: Start: 71-11-1840QDKXRWGF ANTI-SSA/SSBOz Kincaid MD Work Phone: start: 27-07-4251KIX AUTOANTIBODIESOz Kincaid MD Work Phone: start: 14-54-0761Yyt routine ecg w/least 12 lds w/i&r Jonas Ch MD Work Phone: Start: 67-13-1706XVX of headDO Sandra Keita Work Phone: Start: 68-18-1783Ljbeebni identified in Urine by Emile Keita Work Phone: Start: 79-95-9507Mtnju OmarO Sandra Keita Work Phone: Start: 43-57-1509TH of head without contrastDO Sandra Keita Work Phone: Start: 11-08-3015SPJCSCO AND PYRUVATEOz Kincaid MD Work Phone: start: 18-62-0692X-ray of lumbar spine, six views including bending viewsDO Sandra Keita Work Phone: Start: 02-35-0653Cgnkuxuinop [Units/volume] in Serum or PlasmaJonas Ch MD Work Phone: Start: 69-38-5899Zulbe chest X-rayDO Sandra Keita Work Phone: Start: 84-24-0490KO of lungsDO Sandra Keita Work Phone: Start: 11-96-8567Eeyg energy X-ray absorptiometryDO Jonas Zonialilyyefri Work Phone: Start: 97-05-3581Axkqlncgl mammography of bilateral breastsDO Sandra Keita Work Phone: Start: 18-44-5258LK of lungsDO Sandra Keita Work Phone: Start: 77-48-4531Uontogaq tomography of abdomen and pelvis with contrastDO Tray RoseyStart: 79-65-4397Xsquyoeszm laparoscopyDO Tray RoseyStart: 09-11-9148KU scan of gallbladderDO Tray Randle Start: 80-90-1322PL of abdomen and pelvis without contrastDO Tray Randle Start: 84-28-0859YcahkdlzehmWecoyxz McGuinn MD Work Phone: Start: 65-38-7426Hrpkcnjg screenComment on above: Performed By: #### [id number] #### [place] [address] Lwovg culture for bacteria, including anaerobic screenDO Tray NovoaARS Antigen (LFIA)DO Tray RandleUrine cultureDO Tray Randle Urine cultureDO Tray Randle Plan of Treatment DateCare ActivityDetailAuthorStart: 08-17-2025 End: 55-05-1084Jdrjfdb encounter yzseapiti04/21/2026 3:10 PM EDT Office Visit [facility] [address] [place] [address] Roland Faust MD [address] [place] [address] [facility]: 08-10-2025 End: 49-75-6685Taakzlq encounter kucsrqyyu28/14/2026 1:15 PM EDT Office Visit JUMA Chun OBELVIRAN [address] [place] [address] Linwood Irwin MD [address] [place] [address] JUMA Chun OBGYNStart: 07-20-2025 End: 95-20-6538Erwyqyq encounter comieydhn42/24/2026 4:00 PM EDT Office Visit [facility] [address] [place], [place] [phone] Oz Kincaid MD [address] [phone] J[facility] Start: 02-10-2025 End: 06-87-0163Biforoc encounter hhmczubql70/15/2025 1:00 PM EDT Office Visit JUMA Chun [facility]BG[facility] [address] [place] [address] Linwood Irwin MD [address] [place] [address] JUMA Chun OBGYNStart: 02-09-2025 End: 19-21-0615Mxjkuqm encounter fewcermjp80/14/2025 12:30 PM EDT Office Visit JUMA Chun [facility] [address] [place] [address] Linwood Irwin MD [address] [place] [address] NOMJaqueline [place] OBGYNStart: 01-19-2025 End: 27-78-8248Mjmllde encounter procedureNOMS [facility] NEUR BStart: 12-30-2024 End: 02-11-7315Wcxumdh encounter maossmhty47/03/2025 1:40 PM EDT Office Visit [facility] [address] [facility] [address] [place] [address] Roland Faust MD [address] [facility] [address] [place] [address] [facility]Start: 39-24-2290EVJTZ-19 Vaccine ( season)COVID-19 Vaccine ( season)[facility] Start: 76-09-4813Eldacsqvu vaccinationInfluenza Vaccine (#1)[facility] CenterStart: 12-18-2024 End: 63-48-8587Lhaqexf encounter procedureNOMS SWS NEUR BStart: 12-11-2024 End: 16-02-0123Bgscvag encounter procedureNOMS [facility] NEUR BStart: 11-30-2024 End: 23-26-6062Gevxful encounter zwydfsdqg97/04/2025 1:15 PM EDT Office Visit NOMJaqueline Chun Podiatry [address] [place] [address] Karl Fritz DPM [address] [place] [address] NOMJaqueline Chun PodiatryStart: 11-23-2024 End: 81-85-1153Yhnvyyq encounter procedureNOMS SWS PODIATRYComment on above: ArrivedStart: 74-89-0571Rlmgoeovteh Wound CultureSuperficial Wound Culture [facility] Cincinnatitart: 59-76-0434Fksabmo stimulating hormone measurementTSValir Rehabilitation Hospital – Oklahoma CityStart: 10-28-2024 End: 90-43-4139Esvbcvw encounter hzdwccqto41/02/2025 4:00 PM EDT Office Visit [facility] [address] [place] [address] Karl Fritz, DPM [address] [place] [address] NOMS SWS PODIATRYStart: 10-23-2024 End: 31-31-4877Mokomui encounter lvixkpmyv14/27/2025 12:00 PM EDT Procedure Visit [facility] NE[facility] B [address] [place] [address] Oz Kincaid MD [address] [facility] [address] [address] [facility] NEUR BStart: 10-20-2024 End: 99-63-9964Pyajzqz encounter ajqwrzuwm50/24/2025 10:45 AM EDT Office Visit [facility] [address] [place] [address] Karl Fritz, DPM [address] [place] [address] ArrivedNOMS [facility] PODIATRYComment on above:ArrivedStart: 10-06-2024 End: 76-32-2499BEV AND NERVE CONDUCTION STUDYEMG AND NERVE CONDUCTION STUDY Neurology Routine Numbness Leg pain, left Leg pain, right Bilateral leg weakness Expected: 10/06/2024 (Approximate), Expires: 10/06/2025[facility] Work Phone: comment on above:Expected: 10/06/2024 (Approximate), Expires: 10/06/2025Start: 10-06-2024 End: 92-51-0292Ktwtwaq encounter procedureNOMS [facility] NEUR BComment on above: ArrivedStart: 09-10-2024 End: 19-38-5889JsusjsvncSelect Medical Specialty Hospital - Cincinnatitart: 27-83-5667Lisrpqb referralLicking Memorial Hospital Work Phone: Start: 33-36-9691Lzmcoon referralLicking Memorial Hospital Work Phone: Start: 64-93-0487Oaeeq brachial pressure index [facility] Cincinnatitart: 66-06-3859Goyjf [facility] Private Hospitaltart: 25-24-0658Rykhixgl identified in Urine by Culture Urine [facility] Health Administrationtart: 41-90-7145MngjardxnSelect Medical Specialty Hospital - Cincinnatitart: 05-26-2024 End: 73-92-9093Sydlrny encounter zgfroydek90/28/2025 2:40 PM EST Office Visit [facility] [address] [facility] [address] [place] [address] Roland Faust MD [address] [facility] [address] [place], [place] [phone] [facility]Start: 05-07-2024 End: 59-69-6106Wcvmvcp encounter rzryyspla30/09/2025 2:15 PM EST Office Visit [facility] [address] [place] [address] Karl Fritz DPM [address] [place] [address] NOMS SWS PODIATRYStart: 80-39-7777AjxbvtvjuSelect Medical Specialty Hospital - Cincinnatitart: 04-29-2024 End: 73-15-5836Rzeav [facility] Private Hospitaltart: 04-29-2024 Referral to neurologistSelect Medical Specialty Hospital - Cincinnatitart: 04-29-2024 [facility]itart: 43-79-4552Hvqedscw admissionSelect Medical Specialty Hospital - Cincinnatitart: 49-37-8644OtmfqrxqoSelect Medical Specialty Hospital - Cincinnatitart: 04-07-2024 End: 54-43-9934Xvxjylh encounter iresvigep83/10/2024 3:30 PM EST Office Visit [facility] [address] [place] [address] Karl Fritz, DPM [address] [place] [address] N[facility]S SWS PODIATRYStart: 04-07-2024 End: 92-91-8018Qyhvwol encounter procedureNOMS SWS NEUR BComment on above: ArrivedStart: 03-27-2024 End: 15-45-3358Vjzvrqj encounter mogbwzebm47/29/2024 10:10 AM EST Office Visit [facility] [address] [facility] [address] [place] [address] Roland Faust MD [address] [facility] [place] [address] [facility]: [facility] End: 66-71-2162Iavtsay encounter mfamuvfjj41/26/2024 1:30 PM EST Office Visit [facility] [address] [place] [id number] Karl Fritz, DPM [address] [place] [address] [facility] PODIATRYStart: 03-10-2024 End: 37-14-8023Bfeednl encounter [email or web address]/12/2024 1:30 PM EST Office Visit [facility] [address] [place] [id number] Karl Fritz, DPM [address] [place] [address] [facility] PODIATRYStart: 02-25-2024 End: 32-45-2272Zohkubu encounter procedureNOMS SWS NEUR BComment on above: ArrivedStart: 02-10-2024 End: 09-28-1185Nfojgkw encounter procedureNOMS SWS PODIATRYComment on above: ArrivedStart: 01-28-2024 End: 23-41-4751Srehfvd encounter nzbizannz09/01/2024 1:30 PM EDT Office Visit [facility] [address] [place] [phone] Oz Kincaid MD [address] [address] [facility] BStart: 01-27-2024 End: 23-59-2262Vfiibiw encounter procedureNOCHILDREN'S HOSPITAL OF SAN [facility] PODIATRYComment on above: ArrivedStart: 01-21-2024 End: 30-52-3102Zboddfh encounter kfgaavtok25/24/2024 11:00 AM EDT Office Visit [facility] [address] [place] [address] Karl Fritz DPM [address] [place] [address] ArrivedNOCHILDREN'S HOSPITAL OF SAN [facility] PODIATRYComment on above:ArrivedStart: 16-35-4836Scgzzyrbhfs Wound CultureSuperficial Wound CultureSelect Medical Specialty Hospital - Cincinnatitart: 01-07-2024 End: 60-69-7687CTPXFXSGXBK WOUND CULTURE ([facility])SUPERFICIAL WOUND CULTURE ([facility]) Microbiology Routine Ulcer of right foot, limited to breakdown of skin (CMS/HCC) Cellulitis of right foot Expected: 01/07/2024 (Approximate), Expires: 01/06/2025[facility] Work Phone: comment on above:Expected: 01/07/2024 (Approximate), Expires: 01/06/2025Start: 01-07-2024 End: 08-19-8676Dwuqpns encounter gcqolqkin07/10/2024 1:15 PM EDT Office Visit [facility]Jaqueline [facility] [address] [place] [phone] Oz Kincaid MD [address] [address] [facility] NEUR BStart: 01-07-2024 End: 34-81-6699Gwuxuqr encounter /10/2024 9:45 AM EDT Office Visit [facility] [address] [place] [phone] Karl Fritz DPM [address] [place] [address] ArrivedNOMS [facility] PODIATRYComment on above:ArrivedStart: 74-85-6261Bfisof scan of lower limb veinsUS venous duplex LE [facility] CenterStart: 82-84-4368BD Lower extremity vein - bilateral [facility] Cinc[facility]atitart: 63-39-4052OLRPC-19 Vaccine ( season)COVID-19 Vaccine ( season)[facility] Start: 17-49-3682Mybvxahqe vaccinationUniversity Hospitals TriPoint Medical CenterStart: 85-43-7022Dvnpc zinc measurementSelect Medical Specialty Hospital - Cincinnatitart: 12-02-2023 End: 83-18-6292UkmoifmvpSelect Medical Specialty Hospital - Cincinnatitart: 69-21-0074Tpgpwpja to Scl-70 measurementSelect Medical Specialty Hospital - Cincinnatitart: 18-57-2707HAJ antibody measurementSelect Medical Specialty Hospital - Cincinnatitart: 46-41-7508SfrrglaktSelect Medical Specialty Hospital - Cincinnatitart: 11-13-2023 End: 33-49-7442Vejgubvtj aminotransferase [Enzymatic activity/volume] in Serum or Plasma by With P-5'-PAspartate Aminotransferase Lab Routine High risk medication use Expected: 11/13/2023 (Approximate),Expires: 11/12/2024[facility] Service Area Work Phone: Comment on above:Expected: 11/13/2023 (Approximate), Expires: 11/12/2024Start: 11-13-2023 End: 00-87-0611Riakx metabolic 2000 panel - Serum or PlasmaBasic Metabolic Panel Lab Routine High risk medication use Expected: 11/13/2023 (Approximate), Expir es: 11/12/2024[facility] Work Phone: Comment on above:Expected: 11/13/2023 (Approximate), Expires: 11/12/2024Start: 11-13-2023 End: 53-27-3588Ydkykaib Pulmonary Function Test (Spirometry/DLCO/Lung Volumes) Complete Pulmonary Function Test (Spirometry/DLCO/Lung Volumes) PFT Routine Typical atrial flutter (Multi) Expected: 11/13/2023 (Approximate), Expires: 11/12/2024[facility] Work Phone: Comment on above:Expected: 11/13/2023 (Approximate), Expires: 11/12/2024Start: 11-13-2023 End: 36-43-6791Bzkytto encounter /17/2024 2:00 PM EDT Office Visit [facility] [address] [facility] [address] [place] [address] Jonas Ch MD [address] [facility] [address] [place] [address] [facility]: 11-13-2023 End: 15-71-1776Vnfxtplyjbt [Units/volume] in Serum or PlasmaThyroid Stimulating Hormone Lab Routine High risk medication use Expected: 11/13/2023 (Approximate), Expires: 11/12/2024[facility] Work Phone: Comment on above:Expected: 11/13/2023 (Approximate), Expires: 11/12/2024Start: 11-13-2023 End: 63-92-0235TX Chest 2 ViewsXR chest 2 views Imaging Routine Typical atrial flutter (Multi) Expected: 11/13/2023 (Approximate),Expires: 11/12/2024[facility] Work Phone: Comment on above:Expected: 11/13/2023 (Approximate), Expires: 11/12/2024Start: 59-04-6654WymnyasmqKettering Health Springfield CenterStart: 68-08-4140XgnzyuwaoKettering Health Springfield CenterStart: 74-48-8778Cfwkyrfl identified in Urine by CultureSelect Medical Specialty Hospital - Cincinnatitart: 45-59-9298Mwqnbvfz to neurologistKettering Health Springfield CenterStart: 10-40-3133Oiauspkx admission [facility] CenterStart: 47-10-8833Slogaagx therapy procedure [facility]atitart: 26-05-5744Mchiaytz to occupational therapistSelect Medical Specialty Hospital - Cincinnatitart: 64-08-0292ClhunidjsKettering Health Springfield CenterStart: 45-46-8853XblmaaycnKettering Health Springfield CenterStart: 47-61-6021AxincfozbSelect Medical Specialty Hospital - Cincinnatitart: 61-45-3569Bglty zinc measurementSelect Medical Specialty Hospital - Cincinnatitart: 19-00-2709HeejfmmfmSelect Medical Specialty Hospital - Cincinnatitart: 10-28-2023 End: 72-89-7266Lfwusjoualogv ExternalCardioversion External Cardiac Services Routine Typical atrial flutter (Multi) Expected: 10/28/2023(Approximate), Expires: 10/06/2025[facility] Service Area Work Phone: Comment on above:Expected: 10/28/2023 (Approximate), Expires: 10/06/2025Start: 59-83-4674LtxekzkjaSelect Medical Specialty Hospital - Cincinnatitart: 40-54-1044Ztktmzbx to cardiologistSelect Medical Specialty Hospital - Cincinnatitart: 93-28-6946Nypunjdx admissionSelect Medical Specialty Hospital - Cincinnatitart: 12-28-2022 COVID-19 Vaccine ( season)COVID-19 Vaccine ( season) [facility]: 02-41-2757Gywctkiaf for osteoporosisBone Density ScanMagruder Hospital: 58-50-1693Osyrjdan tomography of abdomen and pelvis with contrastCT abdomen pelvis w [facility] CenterStart: 12-17-2021 End: 62-34-1919Ptihshqmz department patient visitDeparted EmergencyKettering Health Springfield Ctr-Emergency RoomStart: 01-91-6320WnuzrridpKettering Health Springfield Ctr Work Phone: Start: 17-21-2151Jprlptlz to urologistKettering Health [facility] Ctr Work Phone: Start: 87-06-2779Jkhqbxxq to general surgeonKettering Health [facility] Ctr Work Phone: Start: 17-16-7174Ygrzijjj admissionKettering Health Springfield Ctr Work Phone: Start: 07-31-2317Kgcsvmpnl for malignant neoplasm of breastMammogramUnPremier Health Atrium Medical Center: 54-52-4429SGD High Risk: (Elderly (60+) or Population) (1 - Risk 60-74 years 1-dose series)RSV High Risk: (Elderly (60+) or Population) (1 - Risk 60-74 years 1-dose series)[facility]: 20-49-9343FBW patients and/or patients aged 60+ years (1 - 1-dose 60+ series)RSV patients and/or patients aged 60+ years (1 - 1-dose 60+ series)[facility]: 28-52-4374Oiliwv Vaccines (1 of 2)Zoster Vaccines (1 of 2) [facility]: 69-50-4216HSzG/Tdap/Td Vaccines (1 - Tdap)DTaP/Tdap/Td Vaccines (1 - Tdap)[facility]: 12-88-3829Aaxznzfuw for malignant neoplasm of cervixUnPremier Health [facility] Medical Center: 40-25-1124Ruhpddwhmewm vaccinationPneumococcal Vaccine (1 of 2 - PCV)[facility]: 39-55-4500Omwmn screening for proteinDiabetes: Urine Protein ScreeningMag[facility] Hospital: 09-46-7268Xqjnsnnue C screeningHepatitis C ScreeningUnPremier Health Atrium Medical Center: 79-40-0721Tctippvo foot examinationDiabetes: Foot ExamUnPremier Health [facility] Medical Center: 03-26-8169Dxdrsnbx screeningDiabetes: Retinopathy ScreeningUnPremier Health [facility]rium Medical Center: 26-27-2207Ydsgtjdqgfnc Vaccine: 65+ Years (1 of 2 - PCV)Pneumococcal Vaccine: 65+ Years (1 of 2 - PCV) [facility]: 36-98-0762ODT Vaccines (1 of 1 - Standard series)MMR Vaccines (1 of 1 - Standard series)[facility]: 72-63-2952Fgdigo wellness visitUniversity Hospitals TriPoint Medical Center Start: 84-95-2736Rsqkwgatbp A1c measurementDiabetes: Hemoglobin O8GKdhlpkadquPremier Health Atrium Medical Center: 56-24-2441Jbber panelLipid PanelUnPremier Health Atrium Medical Center: 07-30-1958Medicare Annual Wellness VisitMedicare Annual Wellness Visit (AWV)[facility]: 1955 Screening for malignant neoplasm of colonUnPremier Health Atrium Medical Center: 30-05-2544Xercxpddj for osteoporosisBone Density ScanMag[facility]: 72-64-1578Hddrozm stimulating hormone measurementTSH Level [facility]: 02-88-7207Xtjta screening for protein Diabetes: Urine Protein ScreeningUniversity Hospitals TriPoint Medical Center24 hour urine measurementPremier Health Miami Valley Hospital NorthAlbumin [Mass/volume] in Serum or PlasmaPremier Health Miami Valley Hospital NorthAlbumin/Globulin ratioPremier Health Miami Valley Hospital NorthAldolase measurementPremier Health Miami Valley Hospital NorthAngiotensin converting enzyme [Enzymatic activity/volume] in Serum or PlasmaPremier Health Miami Valley Hospital NorthAntibody measurementPremier Health [facility] Hospital North Arsenic measurementPremier Health Miami Valley Hospital NorthBacteria identified in Unspecified specimen by Aerobe culturePremier Health Miami Valley Hospital NorthBacteria identified in Unspecified specimen by Aerobe culturePremier Health Miami Valley Hospital NorthBorrelia burgdorferi Ab [Interpretation] in SerumPremier Health Miami Valley Hospital NorthBorrelia burgdorferi IgG Ab [Presence] in Serum or Plasma by ImmunoassayPremier Health Miami Valley Hospital NorthBorrelia burgdorferi IgG+IgM Ab [Presence] in Serum by ImmunoassayPremier Health Miami Valley Hospital NorthBorrelia burgdorferi IgM Ab [Presence] in Serum or Plasma by ImmunoassayPremier Health Miami Valley Hospital NorthCentromere protein B Ab [Units/volume] in SerumPremier Health Miami Valley Hospital NorthCeruloplasmin [Mass/volume] in Serum or PlasmaPremier Health Miami Valley Hospital NorthCeruloplasmin [Mass/volume] in Serum or PlasmaPremier Health Miami Valley Hospital NorthComplement C3 [Mass/volume] in Serum or PlasmaPremier Health Miami Valley Hospital NorthComplement C4 [Mass/volume] in Serum or [facility]red Hospital LimaComprehensive metabolic 1999 panel - Serum or Plasma [facility] NorthComprehenve metabolic 1999 panel - Serum or PlasmaPremier Health Miami Valley Hospital NorthComprehenve metabolic 1999 panel - Serum or PlasmaPremier Health Miami Valley Hospital NorthCopper measurementPremier Health Miami Valley Hospital NorthCryoglobulin [Presence] in SerumPremier Health Miami Valley Hospital NorthCT Unspecified body [facility] HealthDB[facility] Breast - bilateral screeningBilateral screening mammogram with tomosynthesis Imaging Routine Encounter for gynecological examination Breast cancer screening by mammogram Ordered: 02/02/2025[facility]Comment on above:Ordered: 02/02/2025DXA Skeletal system.axial Views for bone densityPremier Health Miami Valley Hospital NorthElectrophoresis: grgqe-3-dvplxnfsPgmowfzclPremier Health [facility] Hospital North Electrophoresis: xpzpg-4-tshxtjvpPcthrnmzgPremier Health [facility] Hospital North Electrophoresis: beta-globulinPremier Health Miami Valley Hospital NorthElectrophoresis: gamma globulinPremier Health Miami Valley Hospital NorthFLOWCYTOMETRY NEOGENOMIC FLOWCYTOMETRY NEOGENOMIC Lab Routine 06/26/2024 10:44 AM [facility] [employer] Work Phone: Globulin [Mass/volume] in SerumPremier Health Miami Valley Hospital NorthGlucose measurement estimated from glycated hemoglobinPremier Health Miami Valley Hospital NorthHekaiser foundation hospital A virus antibody, IgM [facility] CenterHeka[facility] hospital B core antibody measurement, IgM [facility] CenterHeka[facility] hospital B virus surface Ag [Presence] in Serum or Plasma by ImmunoassayPremier Health Miami Valley Hospital NorthHepatitis C virus IgG Ab [Presence] in Serum or Plasma by ImmunoassayPremier Health Miami Valley Hospital NorthHeuofl health - peace hospitaltis C virus RNA [log units/volume] (viral load) in Serum or Plasma by TEJINDER with probe detectionPremier Health Miami Valley Hospital NorthHeuofl health - peace hospitaltis C virus RNA [Units/volume] (viral load) in Serum or Plasma by TEJINDER with probe detectionPremier Health Miami Valley Hospital NorthHistone IgG Ab [Units/volume] in Serum by ImmunoassayPremier Health Miami Valley Hospital NorthHIV 1+2 Ab+HIV1 p24 Ag [Presence] in Serum or Plasma by ImmunoassayPremier Health Miami Valley Hospital NorthHomocysteine [Moles/volume] in Serum or PlasmaPremier Health Miami Valley Hospital NorthHomogenous nuclear Ab pattern [Titer] in [facility] HospitalHomogenous nuclear Ab pattern [Titer] in [facility] Hill[facility]st HospitalIgA [Mass/volume] in Serum or Plasma [facility] NorthIgG [Mass/volume] in Serum or [facility]red Hospital LimaIgM [Mass/volume] in Serum or [facility] Hospital LimaIGP, APT HPV,RFX 16/18,45IGP, APT HPV,RFX 16/18,45 Lab Routine Encounter for gynecological examination without abnormal finding Encounter for screening for cervical cancer Ordered: 02/02/2025[facility] [employer] Work Phone: comment on above:Ordered: 02/02/2025IGP, APT HPV,RFX 16/18,45IGP, APT HPV,RFX 16/18,45 Lab Routine Vaginal lesion Encounter for gynecological examination without abnormal finding Encounter for screening for cervical cancer Ordered: 02/02/2025[facility] RewalonComment on above:Ordered: 02/02/2025Immunofixation for UrinePremier Health Miami Valley Hospital NorthJo-1 extractable nuclear Ab [Units/volume] in SerumPremier Health Miami Valley Hospital North Lead [Presence] in [facility] So[facility] Medical CenterLutropin [Units/volume] in Serum or [facility] Hospital LimaMeasurement of monoclonal protein concentrationPremier Health Miami Valley Hospital NorthMercury [Mass/volume] in [facility] Soin Medical CenterMethylmalonate [Moles/volume] in Serum or Kindred Hospital LimaMG Breast - bilateral ScreeningPremier Health Miami Valley Hospital NorthMG Breast - bilateral ScreeningPremier Health Miami Valley Hospital NorthMitochondria M2 IgG Ab [Units/volume] in SerumPremier Health Miami Valley Hospital NorthMR Cervical spine WO contrastPremier Health Miami Valley Hospital NorthMR Thoracic spinePremier Health Miami Valley Hospital NorthMyeloperoxidase Ab [Units/volume] in Serum by ImmunoassayPremier Health Miami Valley Hospital NorthNeutrophil cytoplasmic Ab.classic [Titer] in Serum by ImmunofluorescencePremier Health Miami Valley Hospital NorthNuclear Ab [Titer] in [facility] Hillcrest HospitalNuclear Ab [Titer] in [facility] Hill[facility]st HospitalP-ANCA measurementPremier Health Miami Valley Hospital NorthPathology ReportPathology Report Pathology and Cytology Routine Vaginal lesion Ordered: 02/02/2025NOFL HealthcareComment on above: Ordered: 02/02/2025Patient EducationKettering Health [facility] Ctr Work Phone: Patient referralKettering Health Springfield [facility]tr Work Phone: Porphobilinogen [Mass/volume] in UrinePremier Health Miami Valley Hospital NorthProtein [Mass/volume] in Serum or PlasmaPremier Health Miami Valley Hospital NorthProtein [Mass/volume] in UrinePremier Health Miami Valley Hospital NorthProteinase 3 Ab [Units/volume] in Serum by ImmunoassayPremier Health Miami Valley Hospital NorthPyridoxine [Mass/volume] in Serum or PlasmaPremier Health Miami Valley Hospital NorthReagin Ab [Presence] in Serum by RPOur Lady of Mercy HospitalRheumatoid factor [Units/volume] in Serum or PlasmaPremier Health Miami Valley Hospital NorthRibosomal P Ab [Units/volume] in SerumSelect Medical Specialty Hospital - Cincinnatierum immunofixationSelect Medical Specialty Hospital - Cincinnatijogrens syndrome-A extractable nuclear Ab [Units/volume] in SerumPremier Health Miami Valley Hospital North Sjogrens syndrome-B extractable nuclear Ab [Units/volume] in SerumSelect Medical Specialty Hospital - Cincinnatimith extractable nuclear Ab [Units/volume] in Serum [facility] - CincinnatiUPERFICIAL WOUND CULTURE ([facility] Work Phone: comment on above:Ordered: 11/16/2024Thallium [Mass/volume] in Serum or PlasmaPremier Health Miami Valley Hospital NorthWest Nile virus IgG Ab [Presence] in Serum by [facility] HospitalWest Nile virus IgM Ab [Presence] in Serum by ImmunoassayAspirus Medford Hospital Immunizations Immunization DateImmunizationNotesCare YkujwzpsRgshcgky76-93-4672gaigwns, mumps and rubella virus vaccineGlsenait Keita Other [facility] NorthNEGATED: Highlighted row has not occurred!95-92-9456Hwn Shot - Documentation Purposes OnlySandra Keita Other [employer] Other NEGATED: Highlighted row has not occurred!04-16-2022 influenza, seasonal, injectablePatient ObjectionGlsenait Keita Other [facility] Payers DatePayer CategoryPayerPolicy [id number]-[id number] [id number] Eligibility Medicare/Medicaid [id number] Health InsuranceUNDEER RIVER [facility] HEALTH[facility] DUAL COMPLETE [facility] DUAL COMPLETE [id number] 2023-Present [address] [address] [place] [address] [id number] [id number] [id number] [id number] 2023Medicare (Managed Care)[facility] MEDICARE [id number] 04-61-7342Wamwwxx Health [id number] 20[id number] Memorial [id number] 2.16.840.8.06725[id number] [id number] [id number] 2.16.840.1.344679.3.57[id number] 2.16.840.1.340946.3.57[id number] 2.16.840.1.495655.3.57[id number] 2.16.840.1.331070.3.57[id number] 2.16.840.1.621392.3.57[id number] 2.16.840.1.024036.3.57[id number] 2.16.840.1.718262.3.57[id number] 2.16.840.1.213343.3.57[id number] 2.16.840.1.029514.3.57[id number] 2.16840.1.072134.3.57[id number] 2.16.840.1.261672.3.57[id number] 2.0.1.091555.3.579.2.5[id number] 2.0.1.051005.3.579.[id number] 2..1.536654.3.579.2.761922-53-0342Zfnkgiy75652750 2..1.854997.3.579.2.578211-63-5779Mhptgki45128619 2..1.548121.3.579.2.604969-07-1743Yjrivkr30862529 2..1.729099.3.579.2.810185-79-7568Hflewru44007527 2..1.183676.3.579.2.919633-26-0233Wiqdtgt18063929 2..1.487844.3.579.2.700192-33-6812Iqohnoa70689384 2..1.904435.3.579.2.616677-24-1172Gkfrowx4224477 2..1.691794.3.579.2.499741-85-7919Ydskorx9407906 2..1.736745.3.579.2.814325-10-8503Djbdhrg9512547 2.0.1.554742.3.579.2.932919-01-7978Kgrbluy6110933 2.840.1.447[id number] 2..1.130848.19Unknown [id number] 2.16.840.1.5[id number] 2.16.840.1.9[id number] 2.16.840.1.307681.3.579.2.531 Mxsrmez86055125 2.16.840.1.512665.3.579.2.289Mkcuwgq88845043 2.16.840.1.778618.3.579.2.756Wkbajwj15561598 2.16.840.1.519466.3.579.2.531 Wqskrjt33540154 2.16.840.1.4[id number] 2.16.840.1.910940.3.579.2.532Nqfqxsc03203475 2.16.840.1.596336.3.579.2.531 [id number] 2.16.840.1.774471.3.579.2.572Lwwsgoj01541923 2.16.840.1.778704.3.579.2.597Edinejs85243787 2.16.840.1.597902.3.579.2.531 Social History DateTypeDetailFacilityUnknown if ever smokedGrelton [employer] Other Start: 10-07-2023 End: 53-39-0267Fvn Assigned At [facility] for WomenDancingAnchovy Other Start: 12-17-2021 End: 44-43-0371Skngpkt smoking status NHJana (finding)[facility]atitart: 86-04-5269Hhf [facility]igned At [facility] Hospitaltart: 04-29-1975 End: 46-10-3736Vmdhiqw smoking status NHISSmokes tobacco dailyUniversity Hospitals TriPoint Medical CenterStart: 67-06-7506Joryket of tobacco useCigarette Smoker [facility] Work Phone: Start: 04-85-1220Tyrpjsk use and exposureSmokeless tobacco non-userUniversity Hospitals TriPoint Medical Center Work Phone: Start: 10-07-2023 End: 96-01-3580Nrpnnizmr beverage intakeLifetime non-drinker (finding)[facility] Work Phone: Start: 10-07-2023 End: 13-19-1072Fpivaxj of Social functionUnBlanchard Valley Health System [facility] Work Phone: Start: 15-93-9598Ynv assigned at birthNot on file [facility] Work Phone: Start: 09-27-2023 End: 03-49-2304Yytufzsr to SARS-CoV-2 (event)Not sureUnBlanchard Valley Health System [facility] HospitalStart: 01-29-2023 End: 21-34-0383Okehamq use and exposureUser of smokeless tobaccoNOMS Healthcare Start: 62-88-2250Hkxmybi CommentSmokes 11-20 cigs per dayNOMS HealthcareStart: 02-36-3713Hxcmsjc Commentcaffeine intake: occasionalNOMS HealthcareStart: 04-29-2024 End: 09-91-0219LssIhctmn (finding)[facility]atitart: 07-11-2022 End: 28-44-0844IauZbqnthNzwuchsrsb [facility] Equipment Procedure CodeEquipment CodeEquipment Original TextEquipment IdentifierDates Start: 88-57-6612Xfo Needle, Diabetic (Novofine 32) 32 gauge x 1/4 needleStart: 83-24-9143Lje Needle, Diabetic (Novofine 32) 32 gauge x 1/4 needleStart: 02-52-5052Pkk Needle, Diabetic (Novofine 32) 32 gauge x 1/4 needleStart: 18-13-4830Llf Needle, Diabetic (Novofine 32) 32 gauge x 1/4 needleStart: 12-44-2717Mrl Needle, Diabetic (Novofine 32) 32 gauge x 1/4 needleStart: 39-30-1238Lvg Needle, Diabetic (Novofine 32) 32 gauge x 1/4 needleStart: 51-32-0954Mpc Needle, Diabetic (Novofine 32) 32 gauge x 1/4 needleStart: 75-89-9819Dkz Needle, Diabetic (Novofine 32) 32 gauge x 1/4 needleStart: 26-86-4007Dfy Needle, Diabetic (Novofine 32) 32 gauge x 1/4 needleStart: 36-31-1322Ccp Needle, Diabetic (Novofine 32) 32 gauge x 1/4 needleStart: 70-15-7673Gju Needle, Diabetic (Novofine 32) 32 gauge x 1/4 needleStart: 08-20-2024 Goals DatePatient GoalDesired Activity/State Functional Status ZoilGcobxtixjjUdxybyFdsydbmy71-87-4658Yyrfvhcuuv statusPatient at [facility] Work Phone: [phone] statusPatient at [facility] Work Phone: [phone]mjopjmm statusPatient at [facility] Work Phone: [phone] 311-640908726418-27-0097Fpadrmrzbc statusPatient at [facility] Work Phone: Mental Status JqbaIlifucqwxvHlsimwGbfxrcnj51-40-4761Cxevgolws functionCognitive Status [facility] Work Phone: [phone]koxcmh functionCognitive Status [facility] Work Phone: [phone]hmgaxj functionCognitive Status [facility] at [facility] Work Phone: [phone]syyxxy functionCognitive Status [facility] Work Phone: Clinical Notes 02-27-2021 to 02-09-2025 Note Date & VodpOixtMezdwfxl54-97-2335 History of Present illness Narrative* [place] Irwin MD - 02/09/2025 12:30 PM EDT Images from the original note were not included. Linwood Irwin MD Obstetrics and Gynecology Patient: Taye Gay : 1955 (69 y.o.) Exam Date: 02/09/2025 Reason for Visit - Chief Complaint Patient presents with Follow-up Follow-up following biopsy of vulvar mass History of Present Illness Patient is experiencing pain on her vagina since 01/14. Patient's daughter then looked and found a arlen sized growth with 10 finger looking sprouts coming out of it. She states the growth is red and brown at the base and the patient can feel it growing, the pain is now becoming worse for the patient and is now having difficulty with urination and experiencing some bleeding from the area Prior treatment:[address] Saleem; VIN3 / CIS. Pathology VULVA, BIOPSY: - MULTIPLE FRAGMENTS OF BENIGN POLYPOID VULVAR EPITHELIAL MUCOSA WITH HYPERPLASIA, VASCULAR CONGESTION AND CHRONIC INFLAMMATION. - NEGATIVE FOR FUNGAL ORGANISMS, ATYPIA, AND MALIGNANCY. [facility] 02/04/2025 0846 Local History of Present Illness Taye presents for follow-up of skin lesions that have been previously biopsied The patient had multiple lesions including a small spot that has resolved with bx, The patient has a follow-up appointment scheduled for the with Dr Best Engineering Surveyor oncology to assess ongoing treatment needs. Visit Vitals BP 122/74 (BP Location: Left arm) Wt 194 lb BMI 30.38 kg/m OB Status Postmenopausal Smoking Status Every Day BSA 2.04 m History of Present Illness, Associated Treatments and Results - OB History No obstetric history on file. Constitutional: Negative. HENT: Negative. Eyes: Negative. Respiratory: Negative. Cardiovascular: Negative. Gastrointestinal: Negative. Endocrine: Negative. Genitourinary: Negative. Musculoskeletal: Negative. Skin: Negative. Allergic/Immunologic: Negative. Neurological: Negative. Hematological: Negative. Psychiatric/Behavioral: Negative. Allergies[1] Current Medications[2] Medical History[3] Surgical History[4] Family History[5] Tobacco Use History[6] Physical Exam - General appearance, mentation, extraocular movements, facial strength and movement, hearing, upper and lower extremity strength and tone, sensation to gross testing, coordination, and gait are normalor at baseline unless noted below. Physical Exam Genitourinary: Genitourinary Comments: Erythematous vulva Biopsy site healing well Various small papillomas stable Assessment/Plan ICD-10-CM 1. Encounter for gynecological examination Z01.419 2. Vaginal lesion N89.8 Skin lesions Assessment: Follow up vulvar biopsy with polypoid hyperplasia Previous vulvectomy by [facility] - Follow-up appointment scheduled for the 12th with specialist - If specialist recommends continued follow-up, return visit in 6 months - Await specialist recommendations for further management Assessment & Plan Electronically signed by Linwood Irwin MD [1] Allergies Allergen Reactions Sulfa Antibiotics GI intolerance and Unknown [2] Current Outpatient Medications: aspirin 81 MG EC tablet, Take 81 mg by mouth in the morning., Disp: , Rfl: carvedilol (Coreg) 12.5 MG tablet, Take 12.5 mg by mouth in the morning and 12.5 mg in the evening.Take with meals., Disp: , Rfl: Continuous Blood Gluc Sensor (Attentio Brent 14 Day Sensor) [facility] [place], apply 1 SENSOR as directed every14 days use with DEVICE to MONIT... (REFER TO PRESCRIPTION NOTES)., Disp: , Rfl: cyanocobalamin (Vitamin B-12) 2500 MCG tablet, , Disp: , Rfl: Docusate Sodium (DSS) 100 MG capsule, Take 100 mg by mouth in the morning and 100 mg in the evening., Disp: , Rfl: donepezil (Aricept) 10 MG tablet, 2 tabs QAM, Disp: 60 tablet, Rfl: 5 Droplet Pen Dorothy 32G X 4 MM [facility] [place], [place], use 1 PEN NEEDLE to inject MEDICATION subcutaneously five times a day, Disp: , Rfl: Eliquis 5 MG tablet, Take 5 mg by mouth in the morning and 5 mg before bedtime., Disp: , Rfl: folic acid (Folvite) 1 MG tablet, Take 1,000 mcg by mouth Daily, Disp: , Rfl: Jardiance 25 MG, take 1 tablet orally once daily, Disp: , Rfl: magnesium oxide (Mag-Ox) 400 (240 Mg) MG tablet, Take 400 mg by mouth in the morning and 400 mg before bedtime., Disp: , Rfl: memantine (Namenda) 10 MG tablet, 1 tab BID, Disp: 60 tablet, Rfl: 5 metFORMIN (Glucophage) 500 MG tablet, Take 500 mg by mouth, Disp: , Rfl: nortriptyline (Pamelor) 25 MG capsule, Take 1 capsule (25 mg) by mouth at bedtime, Disp: 30 capsule, Rfl: 5 omeprazole (PriLOSEC) [address] capsule, , Disp: , Rfl: Ozempic, 1 MG/DOSE, 4 MG/3ML solution pen-injector, Administer 1mg subcutaneously once weekly, Disp: , Rfl: pregabalin (Lyrica) 300 MG capsule, TAKE 1 CAPSULE BY MOUTH TWICE A DAY, Disp: 60 capsule, Rfl: 3 sertraline (Zoloft) 50 MG tablet, Take 50 mg by mouth Daily, Disp: , Rfl: simvastatin (Zocor) 40 MG tablet, Take 40 mg by mouth at bedtime, Disp: , Rfl: Toujeo SoloStar 300 UNIT/ML injection, inject 20 units subcutaneously as directed, Disp: , Rfl: [3] Past Medical History: Diagnosis Date Abnormal Pap smear of cervix hpv positive COVID-19 Diabetes (HCC) Fibromyalgia High cholesterol History of medical problems ulcer HTN (hypertension) Neuropathy Rheumatoid arthritis (HCC) Scarlet fever Stomach ulcer Tonsillitis [4] Past Surgical History: Procedure Laterality Date BIOPSY 04/2020 vulvar CARPAL TUNNEL RELEASE Right 2018 COLPOSCOPY 01/21/2017 COLPOSCOPY 09/2018 COLPOSCOPY 10/2019 COLPOSCOPY 09/2021 ESOPHAGEAL DILATION HYSTERECTOMY PARTIAL HYSTERECTOMY MO VULVECTOMY SIMPLE PARTIAL 12/[address] [facility] [address] Joaquin TONSILLECTOMY VULVECTOMY 12/2017 [5] Family History Problem Relation Name Age of Onset Hypertension Mother Heart disease Mother Stroke Mother Stroke Father Heart disease Father Cancer Father Bipolar disorder Sister Diabetes Sibling Mental illness Daughter Diabetes Son [6] Social History Tobacco Use Smoking Status Every Day Current packs/day: 1.00 Average packs/day: 1 pack/day for 49.8 years (49.8 ttl pk-yrs) Types: Cigarettes Start date: 1975 Smokeless Tobacco Current Tobacco Comments Smokes 11-20 cigs per day documented in this encounterSaint [facility]–[id number] History of Present illness Narrative* Linwood Irwin MD - 02/02/2025 1:30 PM EDT Images from the original note were not included. Linwood Irwin MD Obstetrics and Gynecology Patient: Taye Gay : 1955 (69 y.o.) Exam Date: 02/02/2025 Reason for Visit - Chief Complaint Patient presents with Mass Patient is experiencing pain on her vagina since 01/14. Patient's daughter then looked and found a arlen sized growth with 10 finger looking sprouts coming out of it. She states the growth is red and brown at the base and the patient can feel it growing, the pain is now becoming worse for the patient and is now having difficulty with urination and experiencing some bleeding from the area History of Present Illness History of Present Illness The patient presents for evaluation of a vulvar lesion that appears wart-like in nature. 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 She previously underwent surgery for pre-cancerous conditions in [facility], including a vulvectomy The patient has not been seen for gynecologic care since 2019, representing a 3-year gap in care. She moved in with a caregiver last year who has been assisting with personal hygiene, noting that the patient experiences pain in the genital area during bathing. The patient reports the lesion has been bleeding. The lesions are described as appearinglike skin tags but are noted to be wider than typical skin tags. Visit Vitals Smoking Status Every Day History of Present Illness, Associated Treatments and Results - OB History No obstetric history on file. Constitutional: Negative. HENT: Negative. Eyes: Negative. Respiratory: Negative. Cardiovascular: Negative. Gastrointestinal: Negative. Endocrine: Negative. Genitourinary: Negative. Musculoskeletal: Negative. Skin: Negative. Allergic/Immunologic: Negative. Neurological: Negative. Hematological: Negative. Psychiatric/Behavioral: Negative. Allergies Allergen Reactions Sulfa Antibiotics GI intolerance and Unknown Current Outpatient Medications: aspirin 81 MG EC tablet, Take 81 mg by mouth in the morning., Disp: , Rfl: carvedilol (Coreg) 12.5 MG tablet, Take 12.5 mg by mouth in the morning and 12.5 mg in the evening.Take with meals., Disp: , Rfl: Continuous Blood Gluc Sensor (Prediki Prediction Servicesyle Brent 14 Day Sensor) misc, apply 1 SENSOR as directed every14 days use with DEVICE to MONIT... (REFER TO PRESCRIPTION NOTES)., Disp: , Rfl: cyanocobalamin (Vitamin B-12) 2500 MCG tablet, , Disp: , Rfl: Docusate Sodium (DSS) 100 MG capsule, Take 100 mg by mouth in the morning and 100 mg in the evening., Disp: , Rfl: donepezil (Aricept) 10 MG tablet, 2 tabs QAM, Disp: 60 tablet, Rfl: 5 Droplet Pen Dorothy 32G X 4 MM [facility] [place], use 1 PEN NEEDLE to inject MEDICATION subcutaneously five times a day, Disp: , Rfl: Eliquis 5 MG tablet, Take 5 mg by mouth in the morning and 5 mg before bedtime., Disp: , Rfl: folic acid (Folvite) 1 MG tablet, Take 1,000 mcg by mouth Daily, Disp: , Rfl: Jardiance 25 MG, take 1 tablet orally once daily, Disp: , Rfl: magnesium oxide (Mag-Ox) 400 (240 Mg) MG tablet, Take 400 mg by mouth in the morning and 400 mg before bedtime., Disp: , Rfl: memantine (Namenda) 10 MG tablet, 1 tab BID, Disp: 60 tablet, Rfl: 5 metFORMIN (Glucophage) 500 MG tablet, Take 500 mg by mouth, Disp: , Rfl: nortriptyline (Pamelor) 25 MG capsule, Take 1 capsule (25 mg) by mouth at bedtime, Disp: 30 capsule, Rfl: 5 omeprazole (PriLOSEC) [address] capsule, , Disp: , Rfl: Ozempic, 1 MG/DOSE, 4 MG/3ML solution pen-injector, Administer 1mg subcutaneously once weekly, Disp: , Rfl: pregabalin (Lyrica) 300 MG capsule, TAKE 1 CAPSULE BY MOUTH TWICE A DAY, Disp: 60 capsule, Rfl: 3 sertraline (Zoloft) 50 MG tablet, Take 50 mg by mouth Daily, Disp: , Rfl: simvastatin (Zocor) 40 MG tablet, Take 40 mg by mouth at bedtime, Disp: , Rfl: Toujeo SoloStar 300 UNIT/ML injection, inject 20 units subcutaneously as directed, Disp: , Rfl: Past Medical History: Diagnosis Date Abnormal Pap smear of cervix hpv positive COVID-19 Diabetes (HCC) Fibromyalgia High cholesterol History of medical problems ulcer HTN (hypertension) Neuropathy Rheumatoid arthritis (HCC) Scarlet fever Stomach ulcer Tonsillitis Past Surgical History: Procedure Laterality Date BIOPSY 04/2020 vulvar CARPAL TUNNEL RELEASE Right 2018 COLPOSCOPY 01/21/2017 COLPOSCOPY 09/2018 COLPOSCOPY 10/2019 COLPOSCOPY 09/2021 ESOPHAGEAL DILATION HYSTERECTOMY PARTIAL HYSTERECTOMY MO VULVECTOMY SIMPLE PARTIAL 12/2018 TONSILLECTOMY VULVECTOMY 12/2017 Family History Problem Relation Name Age of Onset Hypertension Mother Heart disease Mother Stroke Mother Stroke Father Heart disease Father Cancer Father Bipolar disorder Sister Diabetes Sibling Mental illness Daughter Diabetes Son Social History Tobacco Use Smoking Status Every Day Current packs/day: 1.00 Average packs/day: 1 pack/day for 49.8 years (49.8 ttl pk-yrs) Types: Cigarettes Start date: 1975 Smokeless Tobacco Current Tobacco Comments Smokes 11-20 cigs per day Physical Exam - General appearance, mentation, extraocular movements, facial strength and movement, hearing, upper and lower extremity strength and tone, sensation to gross testing, coordination, and gait are normalor at baseline unless noted below. Physical Exam Genitourinary: Genitourinary Comments: 5 mm condyloma biopsied Cluster of condyloma above condon Upper Inner labia minora with scattered lesions Flat papule left labia majora Induration scarring of perineal body Excision of Vulvar Condyloma Performed by: Linwood Irwin MD Authorized by: Linwood Irwin MD Consent: Consent obtained: Verbal Consent given by: Patient Risks discussed: Infection Location: Size: Inclusion condyloma at vulvar apex Location: left inner labia minora Pre-procedure details: Pt with complaints of discomfort Skin preparation: Povidone-iodine Sedation: na Sedation type: None Anesthesia: Anesthesia method: Topical application and local infiltration Local anesthetic: Lidocaine 2% WITH epi Procedure type: Excision Complexity: Simple Procedure details: Ultrasound guidance: no Incision types: lesion grasped with pick ups and excised at base with iris scissors Hemostasis with Ag NO3 Incision depth: Dermal Drainage characteristics: none Post-procedure details: Pt stable Assessment/Plan ICD-10-CM 1. Encounter for gynecological examination Z01.419 2. Vaginal lesion N89.8 Vulvar lesions Assessment: Patient presents with vulvar lesions that appear wart-like in nature. 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 She previously underwent surgery for pre-cancerous conditions including a bone rect elisabeth performed in [place]. The lesions are described as looking like skin tags but are noted to be wider than typical skin tags. She has not been seen for gynecologic care since 2019, approximately 3 years. The lesions are causing pain during bathing. Given her HPV history and the appearance of the lesions, biopsy is indicated for definitive diagnosis. Plan: - Biopsy of vulvar lesions obtained - Return visit scheduled in one week to assess healing and review biopsy results - Medication to be provided after area clears - Consultation to be arranged HPV infection Assessment: Patient has documented HPV infection with high-risk types 16 and 18. Initial testing showed types 16-18-31, with current testing showing approximately 16 different HPV types. She has a history of pre-cancerous conditions requiring surgical intervention. Has not had gynecologic follow-up since 2019, representing a significant gap in care for someone with high-risk HPV. Plan: - Pap smear performed - Continue monitoring and surveillance given high-risk HPV status Preventive care screening Assessment: Patient requires routine preventive care screening including mammography. She has not been seen for gynecologic care since 2019, indicating need for comprehensive preventive care update. Plan: - Mammogram to be ordered and scheduled Referral to Dr Cordoba Engineering Surveyor Oncology for recurrent lesion Assessment & Plan documented in this encounterSaint [facility] Hospital–[id number] Radiology Diagnostic study [facility] [place] [address] [place] [address] CT Scan Report Signed Patient: Taye Gay MR#: [id number] : 1955 Acct:[id number] Age/Sex: 69 / F ADM Date: 5 Loc: CT Room: Type: [facility] Attending Dr: Shantel Norton APRN, NP-C Copies to: Shantel Norton APRN, CNP~ Ordering Provider: Shantel Norton APRN, CNP Date of Service: 02/02/25 CT/CT lung screening: F17.210 - Nicotine dependence, cigarettes, uncomplicated CT CHEST WITHOUT CONTRAST, LOW DOSE SCREENING: CLINICAL DATA: A 69-year old current smoker, smoking for 50 pack-years. COMPARISON: CT lung screen 07/25/2023 TECHNIQUE: Noncontrast axial CT scan images of the chest were obtained under thelow dose screening CT protocol. Coronal and sagittal reconstructed images were also submitted. FINDINGS: Mediastinum : Suboptimal evaluation due to low-dose technique. Thoracic aorta appears normal in caliber. Pulmonary trunk appears nondilated. No pericardial effusion. No lymphadenopathy. The esophagusis grossly unremarkable. Lungs: No focal consolidation, pneumothorax or pleural effusion. Trachea and distal airways appear patent. Stable 4 mm nodule left lower lobe series 6 image 85. Stable 3 mm noncalcified pulmonary nodule left upper lobe series 6 image 43. Stable 3 mm noncalcified pulmonary nodule right upper lobe series 6 image 51. Stable 3 mm subpleural nodule right lower lobe series 6 image 50. No new or enlarging suspicious pulmonary nodules. [...] months. Impression dictated by: Edgar Segovia Jr., D.O. 02/02/2025 12:36 PM Dictation Location: [place] [address] Transcribed By: [facility] 02/02/25 1236 Dictated By: Edgar Segovia Jr, DO 02/02/25 1232 Signed By: 02/02/25 [facility]6 [facility]09-23-2025 History of Present illness Narrative * Oz Kincaid MD - 01/19/2025 4:00 PM EDTAssociated Problem(s): Weakness of both lower extremities Exam in 6 mo. Pt to call fi sx worsen quickly. * Oz Kincaid MD - 01/19/2025 4:00 PM EDTAssociated Problem(s): Carpal tunnel syndrome, bilateral --- causing hand weakness R29.898. (Continue splints B nightly.) * Oz Kincaid MD - 01/19/2025 4:00 PM EDTAssociated Problem(s): Cognitive decline (Continue current regimen.) * Oz Kincaid MD - 01/19/2025 4:00 PM EDTAssociated Problem(s): Cervical paraspinal muscle spasm (Continue current regimen, home PT.) * Oz Kincaid MD - 01/19/2025 4:00 PM EDTAssociated Problem(s): B12 deficiency (Continue B12 SL.) * Oz Kincaid MD - 01/19/2025 4:00 PM EDTAssociated Problem(s): Guyon syndrome, unspecified laterality (Continue avoiding compression.) * Oz Kincaid MD - 01/19/2025 4:00 PM EDT [...] -> medical office). Imaging MR L-s (11/2023, [facility]) - HNP T12-L1 mild ... errol L5-S1 modB . . . . (11/2023, [facility]) - HNP T12-L1 mild [...] IVORY LINTON) - PN pattern Labs - Z51=165/15/116/>22.3, was 359/16.7H/328/>22.3 ... A1c=8.4, was 10.4(!) ,,, [...] Motor - TA 5-L, unchanged: ___, orig: Med Care Manager 4B ... APB 4R 4+L Sens [...] COLPOSCOPY 09/2021 ESOPHAGEAL DILATION HYSTERECTOMY PARTIAL HYSTERECTOMY MO VULVECTOMY SIMPLE PARTIAL 12/2018 TONSILLECTOMY VULVECTOMY 12/2017 [...] Take with meals. Continuous Blood Gluc Sensor (Prediki Prediction Servicesyle Brent 14 Day Sensor) [facility] [...] tabs QAM 60 tablet 5 Droplet Pen Dorothy 32G X 4 MM [facility] [...] file as of 01/19/2025. Oz Kincaid M.D. [facility] ? [address] ? [place], [place] [address] ? ? fax Neurology ? Clinical Neurophysiology ? Epilepsy ? Sleep Disorders ? Clinical Informatics documented in this encounterSaint Luke's North Hospital–[id number] History of Present illness Narrative* Roland Faust MD - 12/30/2024 1:40 PM [...] exam, discussion and plan. documented in this [facility] Work Phone: 1(869) 656-390709-03-2025 Instructions* Patient Instructions* Edilma Menezes LPN - 12/30/2024 [...] through Care Everywhere. * Heart Healthy Diet (Italian) * Quitting smoking (Italian) documented in this [facility] Work Phone: 1(589) 145-756608-22-2025 History of Present illness Narrative* Oz Kincaid MD - 12/18/2024 1:15 PM EDT [facility] Patient: Taye Gay [address], [address] , Sex: 1955, Female [place] [address] Height: 168 cm Ref Phys: Debbie Kincaid [...] Doub=doublet; Fasc=fasciculation; FFE=full for effort; Fib=fibrillation; Myokym=myokymia; Russell=myotonic potential; N,0=normal; NR=no response; Polyph=polyphasia; Pos=positive [sharp] wave; RFU=rapidly firing units; Serr =serrated potential (2<phases<5); W&W=waxing and waning pattern INTERPRETATION: This study reveals ENMG evidence of a chronic, neuropathic, axonal, sensory > motor process affecting all lower extremity nerves tested. Needle examination demonstrates a majzok-us-kompgicb gradient that is most suggestive of peripheral neuropathy. This is of very severe degree by electrical criteria. Potential aetiologies include diabetes mellitus, hypothyroidism, deficiencies of B12, B6, or folate, B6 excess, the collagen-vascular diseases, dysglobulinaemias, medications (including chemotherapeutics, diuretics, and others), as a paraneoplastic syndrome, and a considerable number of rarerconditions. There is also a superimposed axonal process affecting the L5 nerve root on the L, with possible overlap to S1 and L4, of moderate degree. The acute findings indicate recent or ongoing injury. There is no suggestion by this study of myopathy or mononeuropathy. The paraspinal muscles were notstudied due to the patient's Factor Xa inhibitor anticoagulation, resulting in somewhat lower sensitivity of this study to the presence of any radiculopathy. Oz Kincaid M.D. Diplomate, [place] [employer] Psychiat[employer] and Neurology (neurology, epilepsy, sleep medicine) Diplomate, [place] Board of Clinical Neurophysiology Diplomate, [place] Board of Preventive Medicine (clinical informatics) . documented in this [facility]08-19-2025 Evaluation note* Diagnosis Onset Date Resolution Status Admit Date Allergy to honey bee venom acuteAugust 2024 1:46pmAtrial fibrillationacuteAugust 2024 1:46pm Current every day smokeracuteAugust 2024 1:46pmDepressionacuteAugust 2024 1:46pmDiabetes mellitus with neuropathyacuteAugust 2024 1:46pm Insulin dependent diabetes mellitusacuteAugust 2024 1:46pmLumbar spondylosisacuteAugust 2024 1:46pmPAD (peripheral artery disease)acute December 15, 2024 1:46pmPost-menopausalacuteAugust 2024 1:46pmScreening for breast canceracuteAugust 2024 1:46pmScreening for lung canceracute December 15, 2024 1:46pmScreening for osteoporosisacuteAugust 2024 1:46pm Wound of footacuteAugust 2024 1:46pmBMI 32.0-32.9,adultacuteSeptember 2024 1:23pmDietary counseling and surveillanceacuteSeptember 2024 1:23pm HyperlipidemiaacuteSeptember 2024 1:23pmHypertensionacuteSeptember 2024 1:23pmPeripheral neuropathyacuteSeptember 2024 1:23pmType 2 diabetes mellitusacuteSeptember 2024 1:23pmVitamin B 12 deficiencyacuteSeptember 2024 1:23pm [facility] Work Phone: 1(174) 704-855608-19-2025 Evaluation note* Diagnosis Onset Date Resolution Status Admit Date Allergy to honey bee venom acuteAugust 2024 1:46pmAtrial fibrillationacuteAugust 2024 1:46pm Current every day smokeracuteAugust 2024 1:46pmDepressionacuteAugust 2024 1:46pmDiabetes mellitus with neuropathyacuteAugust 2024 1:46pm Insulin dependent diabetes mellitusacuteAugust 2024 1:46pmLumbar spondylosisacuteAugust 2024 1:46pmPAD (peripheral artery disease)acute December 15, 2024 1:46pmPost-menopausalacuteAugust 2024 1:46pmScreening for breast canceracuteAugust 2024 1:46pmScreening for lung canceracute December 15, 2024 1:46pmScreening for osteoporosisacuteAugust 2024 1:46pm Wound of footacuteAugust 2024 1:46pmClass 1 obesity with body mass index (BMI) of 30.0 to 30.9 in adultacuteSeptember 2024 1:23pmDietary counseling and surveillanceacuteSeptember 2024 1:23pmHyperlipidemiaacuteSeptember 2024 1:23pmHypertensionacuteSeptember 2024 1:23pmPeripheral neuropathy acuteSeptember 2024 1:23pmType 2 diabetes mellitusacuteSeptember 2024 1:23pmVitamin B 12 deficiencyacuteSeptember 2024 1:23pmCurrent every day smokeracuteSeptember 2024 2:19pmDepressionacuteSeptember 2024 2:19pm Lesion of spleenacuteSept2024 2:19pm [facility] Work Phone: 1(618) 363-405108-15-2025 History of Present illness Narrative* Oz Kincaid MD - 12/11/2024 1:15 PM EDT [facility] Patient: Taye Gay [address], [address] , Sex: 1955, Female [place] [address] Height: 168 cm Ref Phys: Yanivmatt Debbie fax Electroneuromyogram (ENMG) Test Date: 2024-12-11 Patient [...] Doub=doublet; Fasc=fasciculation; FFE=full for effort; Fib=fibrillation; Myokym=myokymia; Russell=myotonic potential; N,0=normal; NR=no response; Polyph=polyphasia; Pos=positive [sharp] [...] -- 36 40 Oz Kincaid M.D. Diplomate, [place] [employer] Psychiat[employer] and Neurology (neurology, epilepsy, sleep medicine) Diplomate, [place] [employer] Clinical Neurophysiology Diplomate, [place] [employer] Preventive Medicine (clinical informatics) . documented in this encounterSaint Luke's North Hospital–S[id number] History of Present illness Narrative* Karl Fritz [...] if she does decline. documented in this encounterSaint Luke's North Hospital–[id number] History of Present illness Narrative* Karl Fritz [...] to their surgery date. documented in this [facility]06-25-2025 Telephone encounter Note* Telephone Encounter - Cali Duque - 10/21/2024 2:44 PM EDT Patient canceled 10/23/24 EMG on 10/20/24 due to an appointment conflict. [facility]ddhcsgmub57[facility]27[facility]1512 Miscellaneous Notes* Telephone Encounter - Cali Duque - 10/21/2024 2:44 PM EDT Patient canceled 10/23/24 EMG on 10/20/24 due to an appointment conflict. documented in this [facility]06-24-2025 History of Present illness Narrative* Karl Fritz [...] with ulceration and/or pain. documented in this [facility]06-11-2025 Telephone encounter Note* Telephone Encounter - Cali Duque - 10/07/2024 3:49 PM EDT Received call from Raine with [employer] they are happy to take her as a client. [facility] [id number] Miscellaneous Notes* Telephone Encounter - Cali Duque - 10/07/2024 3:49 PM EDT Received call from Raine with [employer] they are happy to take her as a client. documented in this [facility]06-10-2025 History of Present illness Narrative* [...] 6 weeks (around 11/17/2024), or 6-8 w [facility]; after ENMGs. History of Present Illness, Associated Treatments and Results - Dx SLEEP Tx (nortriptyline) AEs Hx No complaints. Failed Semeiology Snoring. No one has observed pt's sleep. Awakenings per night. Unrefreshed AM. Mouth dryAM. Circadian Noct oxim (02/2017) - CACHORRO=3.4 PSG PAPT MSLT MWT Imaging Testing Surgery Dx PN . PAIN . RLS . B12 . RADIC L S1 . (DM . +PO) Tx PGB 300 bid + nortriptyline 25 cyclobenz 10 hs B12 SL AEs denies wt gain. Hx Pain - reasonably well controlled. Radic - worsening gait, worsening leg weakness. Now cannot walk from car to clinic, needs wheelchair. Still walking at home, has to hold onto furniture. (+PO - followed by Dr. Lenz, ) Onset Semeiology Burning, paraesthesiae in feet and fingertips; restlessness; gait ataxia. Imaging MR Arianna (11/2023, [facility]) - HNP T12-L1 mild ... canal sten L2-3 mod ... errol sten L2-3 modB L4-5-S1 modB US LE (12/2016, [facility]) - atherosclerosis, nl PVR. Testing [facility] (11/2023) - acute L S1 (nEMG) + PN pattern signif worse . . . . (03/2017, [facility]) - PN pattern Labs - B47=797/15/116/>22.3, was 359/16.7H/328/>22.3 ... A1c=8.4, was 10.4(!) ,,, [...] - A1c=6.[address] [facility] Failed CONTRA - inj (DM). Physical Exam [...] ___, unchanged: ___, orig: ___ Motor - Med Care Manager 4-R 4L ... APB 4B ... LEs - 4+ throughout (worse), somewhat antalgic, unchanged: ___, orig: Med Care Manager 4B ... APB 4R 4+L Sens [...] COLPOSCOPY 09/2021 ESOPHAGEAL DILATION HYSTERECTOMY PARTIAL HYSTERECTOMY MO VULVECTOMY SIMPLE PARTIAL 12/2018 TONSILLECTOMY VULVECTOMY 12/2017 [...] Take with meals. Continuous Blood Gluc Sensor ([employer] 14 Day Sensor) [facility] [...] tabs QAM 60 tablet 5 Droplet Pen Dorothy 32G X 4 MM [facility] [...] ? [address] ? [place], [place] [address] ? ? fax Neurology ? Clinical Neurophysiology ? Epilepsy ? Sleep Disorders ? Clinical Informatics documented in this encounterSaint [facility]villeGkxnokrmco79-85-6182 Evaluation note* Diagnosis Onset Date Resolution Status Admit Date Atrial fibrillation acuteJune 2024 2:34pmCardiomyopathyacuteJune 2024 2:34pmCongestive heart failureacuteJune 2024 2:34pmDaytime sleepinessacuteJune 2024 2:34pmHypertensionacuteJune 2024 2:34pmHypothyroidacuteJune 2024 2:34pmIntolerance to BiPAP/CPAPacuteJune 2024 2:34pmMajor depression, chronicacuteJune 2024 2:34pmOSA (obstructive sleep apnea)acuteJune 2024 2:34pmSecondary polycythemiaacuteJune 2024 2:34pmAllergy to honey bee venomacuteAugust 2024 1:46pmDepressionacuteAugust 2024 1:46pm [facility] Work Phone: 1(993) 153-513606-05-2025 Evaluation note* Diagnosis Onset Date Resolution Status Admit Date Atrial fibrillation acuteJune 2024 2:34pmCardiomyopathyacuteJune 2024 2:34pmCongestive heart failureacuteJune 2024 2:34pmDaytime sleepinessacuteJune 2024 2:34pmHypertensionacuteJune 2024 2:34pmHypothyroidacuteJune 2024 2:34pmIntolerance to BiPAP/CPAPacuteJune 2024 2:34pmMajor depression, chronicacuteJune 2024 2:34pmOSA (obstructive sleep apnea)acuteJune 2024 2:34pmSecondary polycythemiaacuteJune 2024 2:34pmAllergy to honey bee venomacuteAugust 2024 1:46pmAtrial fibrillationacuteAugust 2024 1:46pmCurrent every day smokeracuteAugust 2024 1:46pmDepressionacuteAugust 2024 1:46pmDiabetes mellitus with neuropathyacuteAugust 2024 1:46pm Insulin dependent diabetes mellitusacuteAugust 2024 1:46pmLumbar spondylosisacuteAugust 2024 1:46pmPAD (peripheral artery disease)acute December 15, 2024 1:46pmPost-menopausalacuteAugust 2024 1:46pmScreening for breast canceracuteAugust 2024 1:46pmScreening for lung canceracute December 15, 2024 1:46pmScreening for osteoporosisacuteAugust 2024 1:46pm Wound of footacuteAugust 2024 1:46pm [facility] Work Phone: 1(845) 479-667205-15-2025 [place] [address] EGD Procedure Note Signed Patient: Taye Gay MR#: [id number] : 1955 Acct:[id number] Age/Sex: 68 / F Adm Date: 5 Loc: Room: Type: [facility] Attending Dr: Manjit Gleason MD [...] MD 09/10/24 1241 Signed By: 09/10/24 1245 [facility]05-15-2025 [place] [address] Gastroenterology H&P Signed Patient: Taye Gay MR#: [id number] : 1955 Acct:[id number] Age/Sex: 68 / F Adm Date: 5 Loc: Room: Type: [facility] Attending Dr: Manjit Gleason MD [...] MD 09/10/24 1233 Signed By: 09/10/24 1241 [facility]04-29-2025 Chief complaint+Reason for visit Narrative* Chief Complaint [...] sleepiness October 01, 2024 2:34p m Hypertension Anjali 5th, 2025 2:34p m Hypothyroid October 01, 2024 2:34p m Intolerance to BiPAP/CPAP October 01, 2024 2:34pm Major depression, chronic October 01, 2024 2:34pm [place] (obstructive sleep apnea) October 01, 2024 2:34pm Secondary polycythemia October 01, 2024 2: 34pm [facility] Work Phone: 1(399) 838-974204-24-2025 Evaluation note* Diagnosis Onset Date Resolution Status Admit Date BMI 32.0-32.9,adult acuteApril 2024 9:57amChronic kidney disease (CKD) stage G2/A2, mildly decreased glomerular filtracuteApril 2024 9:57amDietary counseling and surveillanceacuteApril 2024 9:57amHyperlipidemiaacuteApril 2024 9:57amHypertensionacuteApril 2024 9:57amPeripheral neuropathyacuteApril 2024 9:57amType 2 diabetes mellitusacuteApril 2024 9:57amVitamin B 12 deficiencyacuteApril 2024 9:57amCigarette nicotine dependenceacuteApril 2024 1:31pmDysphagia, unspecifiedacuteApril 2024 1:31pmLesion of skin of cheekacuteApril 2024 1:31pmMajor depression, chronicacuteApril 2024 1:31pmPAD (peripheral artery disease)acuteApril 2024 1:31pm Peripheral neuropathyacuteApril 2024 1:31pmLumbar spondylosisacuteMay 2024 11:01amAtrial fibrillationacuteJune 2024 2:34pmCardiomyopathy acuteJune 2024 2:34pmCongestive heart failureacuteJune 2024 2:34pm Daytime sleepinessacuteJune 2024 2:34pmHypertensionacuteJune 2024 2:34pmHypothyroidacuteJune 2024 2:34pmIntolerance to BiPAP/CPAPacuteJune 2024 2:34pmMajor depression, chronicacuteJune 2024 2:34pmOSA (obstructive sleep apnea)acuteJune 2024 2:34pmSecondary polycythemiaacute October 01, 2024 2:34pm [facility] Work Phone: 1(947) 861-446203-26-2025 Evaluation note* Diagnosis Onset Date Resolution Status Admit Date Cigarette nicotine dependence acuteMarch 2024 10:54amCurrent every day smokeracuteMarch 2024 10:54amPAD (peripheral artery disease)acuteMarch 2024 10:54amBMI 32.0-32.9,adultacuteApril 2024 9:57amChronic kidney disease (CKD) stage G2/A2, mildly decreased glomerular filtracuteApril 2024 9:57amDietary counseling and surveillanceacuteApril 2024 9:57amHyperlipidemiaacuteApril 2024 9:57amHypertensionacuteApril 2024 9:57amPeripheral neuropathy acuteApril 2024 9:57amType 2 diabetes mellitusacuteApril 2024 9:57am Vitamin B 12 deficiencyacuteApril 2024 9:57am [facility] Work Phone: 1(855) 826-560103-26-2025 Evaluation note* Diagnosis Onset Date Resolution Status Admit Date Cigarette nicotine dependence acuteMarch 2024 10:54amCurrent every day smokeracuteMarch 2024 10:54amPAD (peripheral artery disease)acuteMarch 2024 10:54amBMI 32.0-32.9,adultacuteApril 2024 9:57amChronic kidney disease (CKD) stage G2/A2, mildly decreased glomerular filtracuteApril 2024 9:57amDietary counseling and surveillanceacuteApril 2024 9:57amHyperlipidemiaacuteApril 2024 9:57amHypertensionacuteApril 2024 9:57amPeripheral neuropathy acuteApril 2024 9:57amType 2 diabetes mellitusacuteApril 2024 9:57am Vitamin B 12 deficiencyacuteApril 2024 9:57amCigarette nicotine dependence acuteApril 2024 1:31pmDysphagia, unspecifiedacuteApril 2024 1:31pm Lesion of skin of cheekacuteApril 2024 1:31pmMajor depression, chronic acuteApril 2024 1:31pmPAD (peripheral artery disease)acuteApril 2024 1:31pmPeripheral neuropathyacuteApril 2024 1:31pm [facility] Work Phone: 1(879) 272-670103-26-2025 Evaluation note* Diagnosis Onset Date Resolution Status Admit Date Cigarette nicotine dependence acuteMarch 2024 10:54amCurrent every day smokeracuteMarch 2024 10:54amPAD (peripheral artery disease)acuteMarch 2024 10:54amBMI 32.0-32.9,adultacuteApril 2024 9:57amChronic kidney disease (CKD) stage G2/A2, mildly decreased glomerular filtracuteApril 2024 9:57amDietary counseling and surveillanceacuteApril 2024 9:57amHyperlipidemiaacuteApril 2024 9:57amHypertensionacuteApril 2024 9:57amPeripheral neuropathy acuteApril 2024 9:57amType 2 diabetes mellitusacuteApril 2024 9:57am Vitamin B 12 deficiencyacuteApril 2024 9:57amCigarette nicotine dependence acuteApril 2024 1:31pmDysphagia, unspecifiedacuteApril 2024 1:31pm Lesion of skin of cheekacuteApril 2024 1:31pmMajor depression, chronic acuteApril 2024 1:31pmPAD (peripheral artery disease)acuteApr2024 1:31pmPeripheral neuropathyacuteApril 2024 1:31pmLumbar spondylosisacute September 07, 2024 11:01am [facility] Work Phone: 1(532) 470-732303-26-2025 Evaluation note* Diagnosis Onset Date Resolution Status Admit Date Cigarette nicotine dependence acuteMarch 2024 10:54amCurrent every day smokeracuteMarch 2024 10:54amPAD (peripheral artery disease)acuteMarch 2024 10:54amBMI 32.0-32.9,adultacuteApril 2024 9:57amChronic kidney disease (CKD) stage G2/A2, mildly decreased glomerular filtracuteApril 2024 9:57amDietary counseling and surveillanceacuteApril 2024 9:57amHyperlipidemiaacuteApril 2024 9:57amHypertensionacuteApril 2024 9:57amPeripheral neuropathy acuteApril 2024 9:57amType 2 diabetes mellitusacuteApril 2024 9:57am Vitamin B 12 deficiencyacuteApril 2024 9:57amCigarette nicotine dependence acuteApril 2024 1:31pmDysphagia, unspecifiedacuteApril 2024 1:31pm Lesion of skin of cheekacuteApril 2024 1:31pmMajor depression, chronic acuteApril 2024 1:31pmPAD (peripheral artery disease)acuteApril 2024 1:31pmPeripheral neuropathyacuteApril 2024 1:31pmLumbar spondylosisacute September 07, 2024 11:01amAtrial fibrillationacuteJune 2024 2:34pm CardiomyopathyacuteJune 2024 2:34pmCongestive heart failureacuteJune 2024 2:34pmHypertensionacuteJune 2024 2:34pmHypothyroidacuteJune 2024 2:34pmIntolerance to BiPAP/CPAPacuteJune 2024 2:34pmMajor depression, chronicacuteJune 2024 2:34pmOSA (obstructive sleep apnea)acuteJune 2024 2:34pmSecondary polycythemiaacuteJune 2024 2:34pm [facility] Work Phone: 1(544) 477-805303-25-2025 History of Present illness Narrative* Oz Kincaid MD - 07/21/2024 2:45 PM EDTAssociated Problem(s): Cognitive decline (Continue current regimen.) [facility] records - neuro consults, EEG, MR, [...] & Plan Cognitive decline (Continue current regimen.) [facility] records - neuro consults, EEG, MR, [...] felt not to be needed as yet. +PO - followed by Dr. Lenz, Onset Semeiology [...] IVORY LINTON) - PN pattern Labs - Q52=592/15/116/>22.3, was 359/16.7H/328/>22.3 ... A1c=8.4, was 10.4(!) ,,, [...] pt is off nortrip. Adm [facility] ~MILILANI for possible TIA. Walking drunk , Tim. [...] ___, orig: ___ Motor - ___, unchanged: Med Care Manager 4B ... APB 4R 4+L, orig: [...] COLPOSCOPY 09/2021 ESOPHAGEAL DILATION HYSTERECTOMY PARTIAL HYSTERECTOMY MO VULVECTOMY SIMPLE PARTIAL 12/2018 TONSILLECTOMY VULVECTOMY 12/2017 [...] if tolerated 60 tablet 3 Droplet Pen Dorothy 32G X 4 MM [facility] [...] ? [address] ? [place], [place] [address] ? ? fax Neurology ? Clinical Neurophysiology ? Epilepsy ? Sleep Disorders ? Clinical Informatics documented in this encounterSaint [facility]villeCpjfhfudji67-23-3922 History of Present illness Narrative* Roland Faust [...] and plan. [facility]University [facility] Work Phone: 1(417) 881-181302-28-2025 Instructions* Patient Instructions* Melina Lee LPN - [...] 6 months with ekg documented in this encounterUniversity [facility]als [facility] Work Phone: 1(923) 422-663401-21-2025 Telephone encounter Note* Telephone Encounter - Cali Duque - 05/19/2024 11:20 AM EST Daughter same day canceled same day canceled today's appointment due to overslept. RS for 06/02/24 [facility]villeEsrhfzokev15-06-4325 Miscellaneous Notes* Telephone Encounter - Calidion Laenshreyas - 05/19/2024 11:20 AM EST Daughter same day canceled same day canceled today's appointment due to overslept. 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 [...] DO 5 0608 Signed By: 04/30/24 0708 [facility]01-02-2025 Discharge summary Author Priscilla Lang [facility] NorthNote Date/TimeJanuary 2024 10:28am [place] [id number] Discharge Summary Signed Patient: Taye Gay MR#: [id number] : 1955 Acct:[id number] Age/Sex: 68 / F Adm Date: 4 Loc: 3T Room: [address] [place] [address]: Priscilla Lang MD Copies to: [...] taking multiple medications that could potentially cause METAL RECLAMATION KETTLE TENDER side effect and toxic encephalopathy. Diagnosis is [...] polypharmacy regimen to reduce her risk of METAL RECLAMATION KETTLE TENDER side effects or drug?drug interaction.At this time, [...] ask her primary care doctor to obtain [facility] record entirely to address abnormalities seen on labs and imagingthat I have and have not addressed during this hospitalization, follow- up on pending blood work, imaging and pathology [...] constipation) (DME) pen needle, diabetic [Sure-Fine Pen Dorothy] .Route lidocaine 5 % ointment 1 applic [...] % (Auto) 63.5, Lymph % (Auto) 24.9, [place] % (Auto) 8.3, Eos % (Auto) 2.9, Baso % (Auto) 0.4, Nucleat RBC Rel Count 0.0, Neut # (Auto) 4.6, Lymph # (Auto) 1.8, [place] # (Auto) 0.6, Eos # (Auto) 0.2, [...] signed by Priscilla Lang MD> 04/30/24 1028 [facility] Work Phone: 1(741) 346-613801-02-2025 [place] [address] Discharge Summary Signed Patient: Taye Gay MR#: [id number] : 1955 Acct:[id number] Age/Sex: 68 / F Adm Date: 4 Loc: Room: [address] [place] [address]: Priscilla Lang MD Copies to: [...] taking multiple medications that could potentially cause METAL RECLAMATION KETTLE TENDER side effect and toxic encephalopathy. Diagnosis is [...] polypharmacy regimen to reduce her risk of METAL RECLAMATION KETTLE TENDER side effects or drug?drug interaction.At this time, [...] ask her primary care doctor to obtain [facility] record entirely to address abnormalities seen [...] constipation) (DME) pen needle, diabetic [Sure-Fine Pen Dorothy] .Route lidocaine 5 % ointment 1 applic [...] % (Auto) 63.5, Lymph % (Auto) 24.9, [place] % (Auto) 8.3, Eos % (Auto) 2.9, Baso % (Auto) 0.4, Nucleat RBC Rel Count 0.0, Neut # (Auto) 4.6, Lymph # (Auto) 1.8, [place] # (Auto) 0.6, Eos # (Auto) 0.2, [...] MD 04/30/24 1016 Signed By: 04/30/24 1028 [facility]01-01-2025 Consult note Author Lit Clark [facility] NorthNote Date/TimeJanuary 2024 11:07am [place] [address] Neurology Consult Note Signed Patient: Taye Gay MR#: [id number] : 1955 Acct:[id number] Age/Sex: 68 / F Adm Date: 4 Loc: Room: [address] [place] [address] Type: ADM IN Attending Dr: Priscilla Lang MD Copies to: DO Sandra Garrido DO Rafik Massouh, MD~ HPI Consult Date: 04/29/24 Trustee Of Estate: Lit Clark DO Reason for consult: Slurred [...] negative unless noted below or in HPI [facility] Medical History BMI 32.0-32.9,adult Abnormal thyroid [...] (Stool Softener) 100 mg PO DAILY PRN pvlgsoytytqb75/14/24 [History Confirmed 04/28/24] multivitamin 1 tab PO DAILY 06/12/23 [History Confirmed 04/28/24] pen needle, diabetic [Sure-Fine Pen Dorothy] 06/12/23 [History Confirmed 04/28/24] metformin 500 mg [...] Oz Bowling M.D.04/28/2024 9:46 PM Dictation Location: [place] [address] 04/28/24 19:44 IMPRESSION: No acute intracranial pathology. No evidence of focal stenosis, aneurysmal dilatation, dissection or occlusion. Impression dictated by: Oz Bowling M.D.04/28/2024 9:44 PM Dictation Location: [facility]-- Assessment/Plan (1) Atrial fibrillation: Qualifiers: Atrial fibrillation [...] may be metabolic in nature and not sales representative girls' apparel necessarily of transient ischemia or of infarct. [...] <Electronically signed by Lti Clark DO> 04/29/24 1106 [facility] Work Phone: 1(465) 138-791801-01-2025 Progress note Author Prisclila Lang [facility] NorthNote Date/TimeJanuary 2024 11:02am [place] [address] Hospitalist Progress Note Signed Patient: Taye Gay MR#: [id number] : 1955 Acct:[id number] Age/Sex: 68 / F Adm Date: 4 Loc: 3T Room: [address] [place] [address] Type: ADM IN Attending Dr: Priscilla Lang [...] RBCs and rare yeast. Evyjaqueline provided 3 to24 mg of aspirin x [...] was sent at that time with preliminary PO 1:320 positive. Extensivereflexive antibody titers were sent [...] of dementia, possible Alzheimer's dementia -continue home [id number] mg twice daily and donepezil 20 mg [...] <Electronically signed by Priscilla Lang MD> 04/29/24 1107 [facility] Work Phone: 1(711) 653-191101-01-2025 [place] [address] Neurology Consult Note Signed Patient: Taye Gay MR#: [id number] : 1955 Acct:[id number] Age/Sex: 68 / F Adm Date: 4 Loc: Room: [address] [place] [address] Type: ADM IN Attending Dr: Priscilla Lang MD Copies to: DO Sandra Garrido DO Rafik Massouh, MD~ HPI Consult Date: 04/29/24 Trustee Of Estate: Lit Clark DO Reason for consult: Slurred [...] negative unless noted below or in HPI [facility] Medical History BMI 32.0-32.9,adult Abnormal thyroid [...] Father Heart disease [facility] Problem: Diagnosed with Stroke Cancer throat heart [...] (Stool Softener) 100 mg PO DAILY PRN werehfhycplg56/14/24 [History Confirmed 04/28/24] multivitamin 1 tab PO DAILY 06/12/23 [History Confirmed 04/28/24] pen needle, diabetic [Sure-Fine Pen Dorothy] 06/12/23 [History Confirmed 04/28/24] metformin 500 mg [...] Oz Bowling M.D.04/28/2024 9:46 PM Dictation Location: [facility] 04/28/24 19:44 IMPRESSION: No acute intracranial pathology. No evidence of focal stenosis, aneurysmal dilatation, dissection or occlusion. Impression dictated by: Oz Bowling M.D.04/28/2024 9:44 PM Dictation Location: [facility]--17 Assessment/Plan (1) Atrial fibrillation: Qualifiers: Atrial fibrillation [...] may be metabolic in nature and not sales representative girls' apparel necessarily of transient ischemia or of infarct. [...] DO 5 0858 Signed By: 04/29/24 1107 [facility]01-01-2025 [place] [id number] Hospitalist Progress Note Signed Patient: Taye Gay MR#: [id number] : 1955 Acct:[id number] Age/Sex: 68 / F Adm Date: 4 Loc: 3T Room: [address] [place] [address] Type: ADM IN Attending Dr: Priscilla Lang [...] was sent at that time with preliminary PO 1:320 positive. Extensivereflexive antibody titers were sent [...] of dementia, possible Alzheimer's dementia -continue home wbmxerynh37 mg twice daily and donepezil 20 mg [...] providers. Documented By: Priscilla Lang MD 04/29/24 1056 Signed By: 04/29/24 1102 [facility]01-01-2025 History and physical note Author Jori Hearn [facility] NorthNote Date/TimeJanuary 2024 6:39[place] [id number] Hospitalist H&P Signed Patient: Taye Gay MR#: [id number] : 1955 Acct:[id number] Age/Sex: 68 / F Adm Date: 4 Loc: 3T Room: [address] [place] [address] Type: ADM IN Attending Dr: Jori Hearn DO Copies to: Sandra Kieta, DO Jori Hearn, DO~ HPI DATE OF EXAMINATION: 04/29/24 [...] was sent at that time with preliminary PO 1:320 positive. Extensivereflexive antibody titers were sent [...] of dementia, possible Alzheimer's dementia -continue home zxmpqanfv02 mg twice daily and donepezil 20 mg daily 12. Atrial fibrillation - continue Eliquis 5 mg twice daily for anticoagulationand carvedilol 12.5 mg twice daily. EKG in ER shows NSR 13. Hypoxia - no respiratory distress or cardiopulmonary complaints to accompany this. Will monitortelemetry and address as needed [facility] Medical History BMI 32.0-32.9,adult Abnormal thyroid [...] History Father [facility]: [facility] Cancer [...] (Stool Softener) 100 mg PO DAILY PRN hzldduxpcxxv51/14/24 [History Confirmed 04/28/24] multivitamin 1 tab PO DAILY 06/12/23 [History Confirmed 04/28/24] pen needle, diabetic [Sure-Fine Pen Dorothy] 06/12/23 [History Confirmed 04/28/24] metformin 500 mg [...] % (Auto) 24.6 % (.) 04/28/24 19:54 [place] % (Auto) 7.6 % (.) 04/28/24 19:54 Eos % (Auto) 2.7 % (.) 04/28/24 19:54 Baso % (Auto) 1.1 % (.) 04/28/24 19:54 Nucleat RBC Rel Count 0.2 /100 WBC (0-0.5) 04/28/24 19:54 Neut # (Auto) 6.5 x10E3/uL (1.8-7.7) 04/28/24 19:54 Lymph # (Auto) 2.5 x10E3/uL (1.00-4.8) 04/28/24 19:54 [place] # (Auto) 0.8 x10E3/uL (0.0-0.8) 04/28/24 19:54 [...] pH 5.5 (5.0-9.0) 04/28/24 22:02 Ur Specific [place] 1.038 (1.001-1.030) H 04/28/24 22:02 Urine Protein [...] signed by Jori Hearn DO> 04/29/24 0639 [facility] Work Phone: 1(483) 654-561301-01-2025 [place] [address] Hospitalist H&P Signed Patient: Taye Gay MR#: [id number] : 1955 Acct:[id number] Age/Sex: 68 / F Adm Date: 4 Loc: 3T Room: [address] [place] [address] Type: ADM IN Attending Dr: Jori Hearn [...] was sent at that time with preliminary PO 1:320 positive. Extensivereflexive antibody titers were sent [...] of dementia, possible Alzheimer's dementia -continue home evpwrekvu99 mg twice daily and donepezil 20 mg daily 12. Atrial fibrillation - continue Eliquis 5 mg twice daily for anticoagulationand carvedilol 12.5 mg twice daily. EKG in ER shows NSR 13. Hypoxia - no respiratory distress or cardiopulmonary complaints to accompany this. Will monitortelemetry and address as needed [facility] Medical History BMI 32.0-32.9,adult Abnormal thyroid [...] Father Heart disease [facility] Problem: Diagnosed with Stroke Cancer throat heart [...] (Stool Softener) 100 mg PO DAILY PRN ltxwrmuttwst19/14/24 [History Confirmed 04/28/24] multivitamin 1 tab PO DAILY 06/12/23 [History Confirmed 04/28/24] pen needle, diabetic [Sure-Fine Pen Dorothy] 06/12/23 [History Confirmed 04/28/24] metformin 500 mg [...] % (Auto) 24.6 % (.) 04/28/24 19:54 [place] % (Auto) 7.6 % (.) 04/28/24 19:54 Eos % (Auto) 2.7 % (.) 04/28/24 19:54 Baso % (Auto) 1.1 % (.) 04/28/24 19:54 Nucleat RBC Rel Count 0.2 /100 WBC (0-0.5) 04/28/24 19:54 Neut # (Auto) 6.5 x10E3/uL (1.8-7.7) 04/28/24 19:54 Lymph # (Auto) 2.5 x10E3/uL (1.00-4.8) 04/28/24 19:54 [place] # (Auto) 0.8 x10E3/uL (0.0-0.8) 04/28/24 19:54 [...] pH 5.5 (5.0-9.0) 04/28/24 22:02 Ur Specific [place] 1.038 (1.001-1.030) H 04/28/24 22:02 Urine Protein [...] DO 04/28/24 57 Signed By: 04/29/24 0639 [facility]12-31-2024 Radiology Diagnostic study note [facility] Main [place] [address] [place] [address] CT Scan Report Signed Patient: Taye aGy MR#: [id number] : 1955 Acct:[id number] Age/Sex: 68 / F ADM Date: 4 Loc: ER Room: Type: [facility] ER Attending Dr: Copies to: Wesley Villafuerte PA-C~ Ordering Provider: Wesley Villafuerte PA-C Date of Service: 04/28/24 CT/CT angio head: weakness ([id number]) CT/CT angio neck: weakness ([id number]) CT/CT head/brain wo con: weakness CT head/brain [...] Oz Bowling M.D.04/28/2024 9:44 PM Dictation Location: [place] [address] Transcribed By: AMY 04/28/242143 Dictated By: Oz Bowling II, MD 04/28/242129 Signed By: 04/28/242143 [facility] Work Phone: 1(985) 938-330112-31-2024 Evaluation note* Diagnosis Onset Date Resolution Status Admit Date High granulocyte count acuteDecember 2023 9:53amSecondary polycythemiaacuteDecember 2023 9:53amBMI 32.0-32.9,adultacuteDecember 2023 11:14amChronic kidney disease (CKD) stage G2/A2, mildly decreased glomerular filtracuteDecember 2023 11:14amDietary counseling and surveillanceacutecember 2023 11:14am HyperlipidemiaacuteDecember 2023 11:14amHypertensionacuteDecember 2023 11:14amPeripheral neuropathyacutecember 2023 11:14amType 2 diabetes mellitusacutecember 2023 11:14amVitamin B 12 deficiencyacutecember 2023 11:14amAtrial fibrillationacuteDecember 2023 10:38pmGeneralized weaknessacuteDecember 2023 10:38pmInsulin dependent diabetes mellitusacute April 28, 2024 10:38pmTIA (transient ischemic attack)acutecember 2023 10:38pmCigarette nicotine dependenceacuteJanuary 2024 1:02pmDisordered sleepacuteJanuary 2024 1:02pmHypotensionacuteJanuary 2024 1:02pmStool incontinenceacuteJanuary 2024 1:02pmTIA (transient ischemic attack)acute May 07, 2024 1:02pm [facility] Work Phone: 1(348) 844-412912-31-2024 Evaluation note* Diagnosis Onset Date Resolution Status Admit Date High granulocyte count acuteDecember 2023 9:53amSecondary polycythemiaacuteDeceer 2023 9:53amBMI 32.0-32.9,adultacuteDecember 2023 11:14amChronic kidney disease (CKD) stage G2/A2, mildly decreased glomerular filtracuteDecember 2023 11:14amDietary counseling and surveillanceacuteceer 2023 11:14am HyperlipidemiaacuteDecember 2023 11:14amHypertensionacuteDeceer 2023 11:14amPeripheral neuropathyacuteceer 2023 11:14amType 2 diabetes mellitusacuteDeceer 2023 11:14amVitamin B 12 deficiencyacuteDecember 2023 11:14amAtrial fibrillationacuteceer 2023 10:38pmGeneralized weaknessacuteceer 2023 10:38pmInsulin dependent diabetes mellitusacute April 28, 2024 10:38pmTIA (transient ischemic attack)acuteDecember 2023 10:38pmCigarette nicotine dependenceacuteJanuary 2024 1:02pmDisordered sleepacuteJanuary 2024 1:02pmHypotensionacuteJanuary 2024 1:02pmStool incontinenceacuteJanuary 2024 1:02pmTIA (transient ischemic attack)acute May 07, 2024 1:02pmCigarette nicotine dependenceacuteMarch 2024 10:54amCurrent every day smokeracuteMarch 2024 10:54amPAD (peripheral artery disease)acuteMarch 2024 10:54am [facility] Work Phone: 1(371) 939-275412-17-2024 Evaluation note* Diagnosis Onset Date Resolution Status Admit Date High granulocyte count acuteDeceer 2023 9:30amSecondary polycythemiaacuteDecember 2023 9:30amBMI 32.0-32.9,adultacuteDecember 2023 11:14amChronic kidney disease (CKD) stage G2/A2, mildly decreased glomerular filtracuteDecember 2023 11:14amDietary counseling and surveillanceacutecember 2023 11:14am HyperlipidemiaacuteDecember 2023 11:14amHypertensionacuteDecember 2023 11:14amPeripheral neuropathyacuteceer 2023 11:14amType 2 diabetes mellitusacutece2023 11:14amVitamin B 12 deficiencyacuteApril 28, 2024 11:14amTIA (transient ischemic attack)acuteApril 28, 2024 10:38pm [facility] Work Phone: 1(705) 882-579512-17-2024 Evaluation note* Diagnosis Onset Date Resolution Status Admit Date High granulocyte count acutece2023 9:30amSecondary polycythemiaacuteDecember 2023 9:30amBMI 32.0-32.9,adultacuteDecember 2023 11:14amChronic kidney disease (CKD) stage G2/A2, mildly decreased glomerular filtracuteDecember 2023 11:14amDietary counseling and surveillanceacuteApril 28, 2024 11:14am HyperlipidemiaacuteDecemb2023 11:14amHypertensionacuteDecember 2023 11:14amPeripheral neuropathyacuteDeceer 2023 11:14amType 2 diabetes mellitusacutece2023 11:14amVitamin B 12 deficiencyacutece2023 11:14amAtrial fibrillationacutece2023 10:38pmGeneralized weaknessacutece2023 10:38pmInsulin dependent diabetes mellitusacute April 28, 2024 10:38pmTIA (transient ischemic attack)acuteApril 28, 2024 10:38pm [facility] Work Phone: 1(994) 670-342912-17-2024 Evaluation note* Diagnosis Onset Date Resolution Status Admit Date High granulocyte count acuteDecember 2023 9:30amSecondary polycythemiaacuteDecember 2023 9:30amHigh granulocyte countacuteDecember 2023 9:53amSecondary polycythemiaacuteDecember 2023 9:53amBMI 32.0-32.9,adultacuteDecember 2023 11:14amChronic kidney disease (CKD) stage G2/A2, mildly decreased glomerular filtracuteDecember 2023 11:14amDietary counseling and surveillanceacutecember 2023 11:14amHyperlipidemiaacuteDecember 2023 11:14amHypertensionacutecember 2023 11:14amPeripheral neuropathy acutecember 2023 11:14amType 2 diabetes mellitusacuteDecember 2023 11:14amVitamin B 12 deficiencyacutecember 2023 11:14amAtrial fibrillationacutecember 2023 10:38pmGeneralized weaknessacuteDeceer 2023 10:38pmInsulin dependent diabetes mellitusacuteDecember 2023 10:38pmTIA (transient ischemic attack)acuteDecember 2023 10:38pmCigarette nicotine dependenceacuteJanuary 2024 1:02pm [facility] Work Phone: 1(402) 802-770512-17-2024 Evaluation note* Diagnosis Onset Date Resolution Status Admit Date High granulocyte count acuteDecember 2023 9:30amSecondary polycythemiaacuteDecember 2023 9:30amHigh granulocyte countacuteDecember 2023 9:53amSecondary polycythemiaacuteDecember 2023 9:53amBMI 32.0-32.9,adultacuteDecember 2023 11:14amChronic kidney disease (CKD) stage G2/A2, mildly decreased glomerular filtracuteDecember 2023 11:14amDietary counseling and surveillanceacuteDecember 2023 11:14amHyperlipidemiaacuteDecember 2023 11:14amHypertensionacuteDecember 2023 11:14amPeripheral neuropathy acuteDecember 2023 11:14amType 2 diabetes mellitusacuteDecember 2023 11:14amVitamin B 12 deficiencyacuteDecember 2023 11:14amAtrial fibrillationacuteDecember 2023 10:38pmGeneralized weaknessacuteDecember 2023 10:38pmInsulin dependent diabetes mellitusacuteDecember 2023 10:38pmTIA (transient ischemic attack)acuteDecember 2023 10:38pmCigarette nicotine dependenceacuteJanuary 2024 1:02pmDisordered sleepacuteJanuary 2024 1:02pmHypotensionacuteJanuary 2024 1:02pmStool incontinenceacute Keyla 2024 1:02pmTIA (transient ischemic attack)acuteJanuary 2024 1:02pm [facility] Work Phone: 1(181) 682-415012-11-2024 History of Present illness Narrative* Karl Fritz, BARRIE - 04/08/2024 4:00 PM EST Images from the original note were not included. HPI: Patient presents today complaining of an ulcer on the lateral 5th right foot. Patient has pain withwalking and standing due to this lesion. Patient has tried [place] [facility] for treatment, x-ray, antibiotic, (not taking [...] weeks. documented in this encounterSaint Luke's [facility] Hospital–SmithvilleEjfcfjnzew65-18-5523 History of Present illness Narrative* Oz Kincaid [...] PM ESTAssociated Problem(s): Granulocytosis Consult haematology. * zO Kincaid MD - 04/07/2024 1:30 PM EST Images from the original note were not included. Outpatient Progress Note Patient: Taye Agustin Vcitor Hugo Dept: Neurology : 1955 Appt Date: 04/07/2024 [...] in about 6 months (around 10/06/2024), or [facility]. History of Present Illness, Associated Treatments and [...] felt not to be needed as yet. +PO - has seeen by Dr. Lenz, From [...] [facility]) - PN pattern Labs - P02=443/15/116/>22.3, was 359/16.7H/328/>22.3 ... A1c=8.4, was 10.4(!) ,,, [...] (10/2023, [facility]) - not available via [facility] - atrophy age- appropriate & ^T2/FLAIR [...] ___, orig: ___ Motor - ___, unchanged: Med Care Manager 4B ... APB 4R 4+L, orig: [...] COLPOSCOPY 09/2021 ESOPHAGEAL DILATION HYSTERECTOMY PARTIAL HYSTERECTOMY MO VULVECTOMY SIMPLE PARTIAL 12/2018 TONSILLECTOMY VULVECTOMY 12/2017 [...] if tolerated 60 tablet 3 Droplet Pen Dorothy 32G X 4 MM [facility] [...] ? [address] ? [place], [place] [address] ? ? fax Neurology ? Clinical Neurophysiology ? Epilepsy ? Sleep Disorders ? Clinical Informatics documented in this encounterSaint Luke's North Hospital–SmithvilleTzzwqtrckz76-92-1609 History of Present illness Narrative* Roland Faust [...] and plan. documented in this encounterUniversity [facility]als [facility] Work Phone: 1([phone]) 924-117811-27-2024 Instructions* Patient Instructions* Dave Meneses MA - [...] your visit. documented in this encounterUniversity Hospitals [facility] Center Work Phone: 1(423) 307-495910-29-2024 History of Present illness Narrative* Oz Kincaid MD - 02/25/2024 2:43 PM EDTAssociated Problem(s): PO positive Get Dr. Gonzalez's note (2nd request). * Oz Kincaid MD - 02/25/2024 2:15 PM EDTAssociated Problem(s): Cognitive decline Add memantine 10 -> bid. Then add donepezil 10, titrate. Handout. Get MR images transferred to [facility] PACS for my review. * Oz [...] titrate. Handout. Get MR images transferred to [facility] PACS for my review. Neurogenic pain [...] felt not to be needed as yet. +PO - has seeen by Dr. Lenz, From [...] L2-3 modB L4-5-S1 modB US LE (12/2016, [place]) - atherosclerosis, nl PVR. Testing [facility] (11/2023) - acute L S1 (nEMG) + PN pattern signif worse . . . . (03/2017, [facility] ) - PN pattern Labs - B45=714/15/116/>22.3, was 359/16.7H/328/>22.3 ... A1c=8.4, was 10.4(!) ,,, [...] (10/2023, [facility]) - not available via [facility] - atrophy age- appropriate & ^T2/FLAIR [...] ___, orig: ___ Motor - ___, unchanged: Med Care Manager 4B ... APB 4R 4+L, orig: [...] ulcer HTN (hypertension) (CMS/HCC) Neuropathy Rheumatoid arthritis (CMS/[facility]) Scarlet fever Stomach ulcer Tonsillitis Past Surgical History: Procedure Laterality Date BIOPSY 04/2020 vulvar CARPAL TUNNEL RELEASE Right 2018 COLPOSCOPY 01/21/2017 COLPOSCOPY 09/2018 COLPOSCOPY 10/2019 COLPOSCOPY 09/2021 ESOPHAGEAL DILATION HYSTERECTOMY PARTIAL HYSTERECTOMY MO VULVECTOMY SIMPLE PARTIAL 12/2018 TONSILLECTOMY VULVECTOMY 12/2017 [...] 100 mg in the evening. Droplet Pen Dorothy 32G X 4 MM [facility] [...] ? [address] ? [place], [place] [address] ? ? fax Neurology ? Clinical Neurophysiology ? Epilepsy ? Sleep Disorders ? Clinical Informatics documented in this encounterSaint Luke's North Hospital–SmithvilleRfwesknkrc60-90-4650 History of Present illness Narrative* Karl Fritz [...] weeks. documented in this encounterSaint Luke's North Hospital–SmithvilleUjtyjbofey85-81-4768 History of Present illness Narrative* Karl Fritz DPM - 01/27/2024 10:30 AM EDT Images from the original note were not included. HPI: Patient presents today complaining of an ulcer on the plantar 1st met right foot. They have noticedthis for the past month (10/2023). Patient has pain with walking and standing due to this lesion. Patient has tried [place] [facility] for treatment, x-ray, antibiotic, (not taking [...] recheck. documented in this encounterSaint Luke's North Hospital–SmithvilleAdirpwrhzl64-52-5286 History of Present illness Narrative* Karl Fritz [...] recheck. documented in this encounterSaint Luke's North Hospital–SmithvilleDcxjhfkzfr40-33-9997 Telephone encounter Note* Telephone Encounter - Cali Duque - 01/10/2024 2:34 PM EDT Called and spoke with Corinna twice both times got disconnected. On purpose or by accident not sure, second time Corinna was given Dr Kincaid's answer. Not sure if she got full and complete answer, but she got enough of it. [facility]–SmithvilleBdoknlxoye64-76-2781 Miscellaneous Notes* Telephone Encounter - Cali Duque [...] x several days, then 300 bid Corinna [phone] documented in this encounterSaint Luke's North Hospital–SmithvilleLkjungwsrh83-62-9242 Telephone encounter Note* Telephone Encounter - Cali Dunia - 01/08/2024 12:37 PM EDT Daughter (Corinna Ayala) called, She was talking with Taye's Nurse, They would like to know if Gabapentin would be a better option for Taye than the PGB? You just inc her PGB from 1 cap bid to 150/300 x several days, then 300 bid Corinna [phone] [facility] [id number] History of Present illness Narrative* Oz Kincaid MD - 01/07/2024 1:44 PM EDTAssociated Problem(s): PO positive Get rheum note. * Oz Kincaid [...] A1c further. B12 deficiency (Continue B12 SL.) PO positive Get rheum note. No orders of [...] L2-3 modB L4-5-S1 modB US LE (12/2016, [place]) - atherosclerosis, nl PVR. Testing [facility] (11/2023) - acute L S1 (nEMG) + PN pattern signif worse . . . . (03/2017, [facility]) - PN pattern Labs - W33=114/15/116/>22.3, was 359/16.7H/328/>22.3 ... A1c=8.4, was 10.4(!) ,,, PO=1:320, was 1:80. Surgery Failed ?GBP (ineff), dulox [...] ___, orig: ___ Motor - ___, unchanged: Med Care Manager 4B ... APB 4R 4+L, orig: [...] smear of cervix hpv positive COVID-19 Diabetes ([facility]) Fibromyalgia High cholesterol (CMS/HCC) History of medical problems ulcer HTN (hypertension) (CMS/HCC) Neuropathy Rheumatoid arthritis (CMS/HCC) Scarlet fever Stomach ulcer Tonsillitis Past Surgical History: Procedure Laterality Date BIOPSY 04/2020 vulvar CARPAL TUNNEL RELEASE Right 2018 COLPOSCOPY 01/21/2017 COLPOSCOPY 09/2018 COLPOSCOPY 10/2019 COLPOSCOPY 09/2021 ESOPHAGEAL DILATION HYSTERECTOMY PARTIAL HYSTERECTOMY MO VULVECTOMY SIMPLE PARTIAL 12/2018 TONSILLECTOMY VULVECTOMY 12/2017 [...] in the morning. Continuous Blood Gluc Sensor (Bit9Style Brent 14 Day Sensor) [facility] [place] [place] apply 1 SENSOR as directed every 14 days use with DEVICE to MONIT... (REFER TO PRESCRIPTION NOTES). cyanocobalamin (Vitamin B-12) 2500 MCG tablet Docusate Sodium (DSS) 100 MG capsule Take 100 mg by mouth in the morning and 100 mg in the evening. Droplet Pen Dorothy 32G X 4 MM [facility] [...] capsule by mouth at bedtime if needed Tomukeshelliot SoloStar 300 UNIT/ML injection inject 20 units subcutaneously as directed [DISCONTINUED] doxycycline (Vibramycin) 100 MG capsule take 1 capsule by mouth once daily for 10 days [DISCONTINUED] lisinopril 5 MG tablet Take 5 mg by mouth in the morning. No facility-administered encounter medications on file as of 01/07/2024. Oz Kincaid M.D. documented in this encounterSaint Luke's North Hospital–SmithvilleGlkspfflrs80-75-5020 History of Present illness Narrative* Karl Fritz [...] due to this lesion. Patient has tried [place] [facility] for treatment, x-ray, antibiotic, (not taking [...] site with sean vega. She does have [facility] and updated orders will be sent. They [...] weeks. documented in this encounterSaint Luke's North Hospital–SmithvilleBdrgyfycuq43-57-9872 History of Present illness Narrative* Oz Kincaid [...] M.D. documented in this encounterSaint Luke's North Hospital–SmithvilleTpkdohtqiq36-69-9382 History of Present illness Narrative* Roland Faust [...] and plan. documented in this encounterUniversity Hospitals [facility] Work Phone: 1(185) 697-373008-19-2024 Instructions* Patient Instructions* Sofie Dean LPN - [...] to Increase physical activity. documented in this encounterUniversity Hospitals [facility] Work Phone: 1(843) 826-203607-17-2024 History of Present illness Narrative* Jonas Ch [...] Cardiology 2. Nonischemic cardiomyopathy (Multi) Resolved with christianity of sinus rhythm 3. Hypercholesteremia Review of [...] and plan. documented in this encounterUniversity Hospitals [facility] Center Work Phone: 1(140) 799-237207-17-2024 Instructions* Patient Instructions* Dakota Barraza RN - [...] to Increase physical activity documented in this [facility] Work Phone: 1(396) 904-989607-15-2024 Progress note Author Chaka Frye [facility] November 11, 2023 4:15pmNote Date/TimeJuly 2023 4:15pm[place] [address] Hospitalist Progress Note Signed Patient: Taye Gay MR#: [id number] : 1955 Acct:[id number] Age/Sex: 67 / F Adm Date: 4 Loc: 4N Room: 8G8515-4 Type: ADM IN Attending Dr: Chaka Frye MD Copies to: ~ Date of Service: 11/11/2023 Subjective Subjective Narrative: Patient notes that her weakness has improved mildly when compared to yesterday. She is still havingsome difficulty with ambulating. She would like to [...] starting Saturday morning, she is currently unable toambulate even with assistance of a walker secondary [...] Will plan on home with home health carelikely tomorrow. Metabolic workup largely unrevealing. MRI of [...] signed by Chaka Frye MD> 11/11/23 1615 [facility] Work Phone: 1(370) 244-681507-15-2024 Consult note Author Lit Clark [facility] November 11, 2023 3:11pmNote Date/TimeJuly 2023 10:43[place], [place] [address] Neurology Consult Note Signed Patient: Taye Gay MR#: [id number] : 1955 Acct:[id number] Age/Sex: 67 / F Adm Date: 4 Loc: 4N Room: [address] [place] [address] Type: ADM IN Attending Dr: Chaka Frye MD Copies to: DO Geraldo Garrido MD, RES MD Sandra Mar, ~ HPI Consult Date: 11/11/23 Trustee Of Estate: Geraldo Vo MD, RES Reason for consult: Progressive generalized weakness Consult Narrative HPI: Taye Gay is a 67 y.o. female with a PMH of esophageal stricture, cigarette smoker, GERD, HTN, type 2 diabetes mellitus, HLD, CKD stage G2/A2, peripheral neuropathy and vit B12 deficiency who presented to [facility] on 11/10/23 for concerns regarding generalized weakness. Neurology was consulted for evaluation of generalized weakness. Additional HPI is noted in Assessment and Plan. [facility] Medical History History of esophageal stricture [...] Confirmed 11/09/23] pen needle, diabetic [Sure-Fine Pen Dorothy] 06/12/23 [History Confirmed 11/09/23] omeprazole 20 mg [...] Therapy Recommendations: OT Recommendations OT Recommended Discharge Longterm Facility Location OT Recommended Services at Physical Therapy,Occupational Therapy Discharge PT Recommendations PT Recommended Discharge Longterm Facility Location PT Recommended Services at Physical Therapy,Occupational Therapy Discharge Assessment/Plan (1) Ambulatory dysfunction: (2) Weakness: (3) Hypothyroid: Qualifiers: Hypothyroidism type: unspecified Qualified Code(s): E03.9 - Hypothyroidism, unspecified (4) Hypomagnesemia: (5) Type 2 diabetes mellitus with hyperglycemia: Qualifiers: Diabetes mellitus fci insulin use: unspecified scrip clerk insulin use status Qualified Code(s): E11.65 - Type 2 diabetes mellitus with hyperglycemia (6) Vitamin B 12 deficiency: Plan CONSULT REASON: Generalized weakness HPI: Taye Gay is a 67 y.o. female with a PMH of esophageal stricture, cigarette smoker, GERD, HTN, type 2 diabetes mellitus, HLD, CKD stage G2/A2, peripheral neuropathy and vit B12 deficiency who presented to [facility] on 11/10/23 for concerns regarding generalized weakness. [...] coming to the hospital. Denies hitting her head.Patient saw a neurologist in early October and received a lab workup. Per previous history provided bydaughter, the tests were positive for PO, the majority of the testswere negative, but the daughtermentioned that they were not able to finish running all of the blood tests because they did not receive enough blood samples. TSH was also found to be elevated although she was not taking any thyroidmedications. There have been no changes to her medication regimen. Her most recent change was from Lyrica which was started approximately 1 month ago. Today patient states that she is doing ok. Shestill feels generalized weakness, most prominent in her [...] consultation today. The patient had weakness and tremorsactivity of the lower extremities. The patient states [...] disc disease of the lumbar spine are causa tive for the patient's overall lower extremity weakness. I suggest ongoing care with outpatient neurology. I suggest outpatient EMG and MRI of the lumbar spine. I suggest aggressive physical and occupational therapy. I believe the patient is stable from a neurological perspective for discharge and can follow in the outpatient setting. Neurology will signoff. Please call with any questions or concerns. I have personally seen and examined the patient on rounds today. I was present for the jordan parts ofclinical decision making. I agree with the Resident's noteother than as stated by me. Documented By: Lit Clark DO 4 [id number] Signed By: <Electronically signed by Lit Clark DO> 11/11/23 1511 <Electronically signed by MD GAGE Vo> 11/11/23 1043 [facility] Work Phone: 1(293) 117-146207-14-2024 Progress note Author Kirt Renae [facility] November 10, 2023 12:24pmNote Date/TimeJuly 2023 12:00pm[place] [address] Hospitalist Progress Note Signed Patient: aTye Gay MR#: [id number] : 1955 Acct:[id number] Age/Sex: 67 / F Adm Date: 4 Loc: 4N Room: 7E3351-2 Type: ADM IN Attending Dr: Kirt Renae MD Copies to: ~ Date of Service: 11/10/2023 Subjective Subjective Narrative: PT seen and examined at bedside, she was just finished with physical therapy, and when I tried to have her stand up and walk, she was very weak, had to hold my hands and to hold on the chair. She wasshaky. I spoke to her about her current [...] starting Saturday morning, she is currently unable toambulate even with assistance of a walker secondary [...] ESR and CRP -Obtain anti Sushma, Anti RESTRIKE HAMMER OPERATOR, anti dsDNA -Obtain CT head without contrast today, if non revealing will obtain MRI brain without contrast andMRI total spine -PT recommended SNF, will continue [...] code Documented By: Kirt Renae MD 11/10/23 1153 Signed By: <Electronically signed by Kirt Renae MD> 11/10/23 1224 [facility] Work Phone: 1(979) 395-984907-14-2024 History and physical note Author Jluis Campos [facility] November 10, 2023 6:20amNote Date/TimeJuly 2023 6:11am[place] [address] Hospitalist H&P Signed Patient: Taye Gay MR#: [id number] : 1955 Acct:[id number] Age/Sex: 67 / F Adm Date: 4 Loc: 4N Room: 3Y7911-9 Type: ADM IN Attending Dr: Jluis Campos DO Copies to: Sandra Keita, DO Jluis Campos, DO~ HPI DATE OF EXAMINATION: 11/10/23 CHIEF COMPLAINT: weakness HISTORY OF PRESENT ILLNESS: Miss Gay is a 67-year-old female with a past medical history of GERD, hypertension, hyperlipidemia, atrial fibrillation status post cardioversion, peripheral neuropathy, and vitamin B12 efficiencywho presents to hospital due to chief complaint of sudden onset extreme weakness at home leg shaking. The patient is present with her daughter, states that starting Saturday morning the patient beganexperiencing sudden onset weakness while ambulating with her [...] negative unless noted below or in HPI [facility] Medical History History of esophageal stricture [...] Confirmed 11/09/23] pen needle, diabetic [Sure-Fine Pen Dorothy] 06/12/23 [History Confirmed 11/09/23] omeprazole 20 mg [...] weaknesses were noted, patient unable to ambulate. Wkyu-tq-dezp test was normal. No tremors or ataxia with gdlali-sc-zuac movements. Neuro: AOx3, CN II-VII intact. Moves [...] % (Auto) 26.0 % (.) 11/10/23 03:41 [place] % (Auto) 8.2 % (.) 11/10/23 03:41 Eos % (Auto) 3.7 % (.) 11/10/23 03:41 Baso % (Auto) 0.9 % (.) 11/10/23 03:41 Nucleat RBC Rel Count 0.1 /100 WBC (0-0.5) 11/10/23 03:41 Neut # (Auto) 5.2 x10E3/uL (1.8-7.7) 11/10/23 03:41 Lymph # (Auto) 2.2 x10E3/uL (1.00-4.8) 11/10/23 03:41 [place] # (Auto) 0.7 x10E3/uL (0.0-0.8) 11/10/23 03:41 [...] pH 6.0 (5.0-9.0) 11/10/23 05:02 Ur Specific [place] 1.007 (1.001-1.030) 11/10/23 05:02 Urine Protein Negative [...] starting Saturday morning, she is currently unable toambulate even with assistance of a walker secondary [...] days): 3 Documented By: Jluis Campos DO 11/10/2307 Signed By: <Electronically signed by Jluis Campos DO> 11/10/2320 [facility] Work Phone: 1(260) 954-148307-09-2024 [facility] History of Present illness Narrative* Jonas Ch [...] to make adjustments and amiodarone before my mcfp. Vitals: 10/07/23 0948 BP: 114/90 BP Location: [...] mellitus with other specified complication, unspecified whether fci insulin use (Multi) Managed by other providers [...] exam, discussion and plan. documented in this [facility] Work Phone: 1(530) 477-356406-10-2024 Instructions* Patient Instructions* Cary Mcdonnell RN - [...] Fall Prevention Education Given documented in this [facility] Work Phone: 1(125) 431-291405-18-2024 Progress note Author Faraz Gilliam [facility] September 14, 2023 1:34pmNote Date/TimeMay 2023 1:26pmDaniel Ville [id number] Cardiology Progress Note Signed Patient: Taye Gay MR#: [id number] : 1955 Acct:[id number] Age/Sex: 67 / F Adm Date: 4 Loc: 3T Room: [address] [place] [address] Type: ADM IN Attending Dr: Elva Florian [...] month. Documented By: Faraz Gilliam MD 08/27 Signed By: <Electronically signed by Faraz Gilliam MD> 09/14/23 1334 [facility] Work Phone: 1(788) 826-437005-18-2024 Progress note Author Elva Florian [facility] September 14, 2023 2:03amNote Date/TimeMay 2023 6:15[place] [address] Hospitalist Progress Note Signed Patient: Taye Gay MR#: [id number] : 1955 Acct:[id number] Age/Sex: 67 / F Adm Date: 4 Loc: Room: [address] [place] [address] Type: ADM IN Attending Dr: Elva Florian [...] 09/11/24 21:59 Not Given TID.WM.HS [facility] Protocol Insulin Glargine 20 units 09/13/23 09:00 [...] Plan Documented By: Elva Florian MD 09/13/23 8305 Signed By: <Electronically signed by Elva Florian MD> 09/14/23 0209 [facility] Work Phone: 1(250) 740-598805-17-2024 Consult note Author Jonas Ch [facility] September 13, 2023 12:25pmNote Date/TimeMay 2023 12:26pmDaniel Ville [id number] Cardiology Consult Note Signed Patient: Taye Gay MR#: [id number] : 1955 Acct:[id number] Age/Sex: 67 / F Adm Date: 4 Loc: Room: [address] [place] [address] Type: ADM INOo Attending Dr: Elva Florian [...] her heart rate to berapid. She was sentto the hospital and found to be in [...] and no additional complaints, except as documented [facility] Medical History History of esophageal stricture [...] History Father Heart disease History of stroke [facility] Problem: Diagnosed with Stroke Cancer throat [...] Confirmed 09/12/23] pen needle, diabetic [Sure-Fine Pen Dorothy] 06/12/23 [History Confirmed 09/12/23] nortriptyline 50 mg [...] x10E3/uL Lymph # (Auto) 2.0 (1.00-4.8) x10E3/uL [place] # (Auto) 0.6 (0.0-0.8) x10E3/uL Eos # [...] ml @ 999 mls/hr IV .Q1H1M ONE Rx#:[id number] Oral 50 / 50 Output: Urine 600 [...] make arrangements for follow-up thereafter. Documented By: oJnas Ch MD 1222 Signed By: <Electronically signed by MD Jonas Ch> 09/13/23 1227 [facility] Work Phone: 1(372) 303-956705-17-2024 History and physical note Author Elva Florian [facility] September 13, 2023 2:09amNote Date/TimeMay 2023 7:53pm[address] [address] Hospitalist H&P Signed Patient: Taye Gay MR#: [id number] : 1955 Acct:[id number] Age/Sex: 67 / F Adm Date: 4 Loc: Room: [address] [place] [address] Type: ADM INOo Attending Dr: Elva Florian [...] subsequently sent to the Emergency Department for furtherevaluation. The patient denied experiencing any palpitations, Shortness [...] care Discussed with:?the medical team, the patient [facility] Medical History History of esophageal stricture [...] Father Heart disease History of stroke [facility] Problem: Diagnosed with Stroke Cancer throat heart [...] Confirmed 09/12/23] pen needle, diabetic [Sure-Fine Pen Dorothy] 06/12/23 [History Confirmed 09/12/23] nortriptyline 50 mg [...] % (Auto) 20.2 % (.) 09/12/23 14:51 [place] % (Auto) 5.9 % (.) 09/12/23 14:51 Eos % (Auto) 1.7 % (.) 09/12/23 14:51 Baso % (Auto) 0.9 % (.) 09/12/23 14:51 Nucleat RBC Rel Count 0.2 /100 WBC (0-0.5) 09/12/23 14:51 Neut # (Auto) 7.0 x10E3/uL (1.8-7.7) 09/12/23 14:51 Lymph # (Auto) 2.0 x10E3/uL (1.00-4.8) 09/12/23 14:51 [place] # (Auto) 0.6 x10E3/uL (0.0-0.8) 09/12/23 14:51 [...] <Electronically signed by Elva Florian MD> 09/13/23208 [facility] Work Phone: 1(388) 136-598402-12-2024 Evaluation note* Encounter Date Diagnosis Assessment Notes Treatment Notes Treatment Clinical Notes May, Type 2 diabetes mellitus with hy perglycemia (ICD-10 - E11.65) [facility] Other 01-23-2024 Evaluation note* Encounter Date Diagnosis Assessment Notes Treatment Notes Treatment Clinical Notes Apr, Primary insomnia (ICD-10 - F51.0 1) [facility] Other 12-11-2023 Evaluation note* Encounter Date Diagnosis Assessment Notes Treatment Notes Treatment Clinical Notes Mar, Type 2 diabetes mellitus with hy perglycemia (ICD-10 - E11.65) [facility] Other 11-06-2023 Evaluation note* Encounter Date Diagnosis Assessment Notes Treatment Notes Treatment Clinical Notes Feb, Primary insomnia (ICD-10 - F51.0 1) Discussed that increasing temazepam would not be recommended due to concerns for side effects. She will trial melatonin at bedtime. discussed if not improving could trial adjusting nortriptyline or changing to something else such as amitriptyline or trazodone. She is in agreement with this plan. I have personally reviewed the OARRS report for this patient. I have considered the risks of abuse,dependence, addiction and diversion. I believe that it is clinically appropriate for this patient to be prescribed this medication based on documented diagnosis. Will f/u in 3 months for recheck Feb,HTN (hypertension) (ICD-10 - I10)BP seems to be overcorrected at this point likely contributing to dizziness, she is recommended to decrease dosage of lisinopril to 2.5 mg daily. Feb,ERD (gastroesophageal reflux disease) (ICD-10 - K21.9)Discussed can start famotidine PRN breakthrough GERD [facility] Other 10-02-2023 Evaluation note* Encounter Date Diagnosis Assessment Notes Treatment Notes Treatment Clinical Notes Jan, Primary insomnia (ICD-10 - F51.0 1) [facility] Other 09-11-2023 Evaluation note* Encounter Date Diagnosis Assessment Notes Treatment Notes Treatment Clinical Notes Dec, Type 2 diabetes mellitus with hy perglycemia (ICD-10 - E11.65) Managing type 2 diabetes material was published 1. Controlled, Type 2 diabetes with A1c 6.3% 2. Blood glucose levels improved. According to [employer] cgm download 12/25/2022- 01/07/2023: Avg glucose 156. >250-1%, >180-18%, 70-180-81%, <70-0%, <54-0%. CV 19%. Reviewed downlod with pt., readings above target from higher carb load meals. Overall glucose pattern improved. Reviewed with pttarget fasting am/meal to meal glucose 90/130, 2 hours after meal <180; bedtime 120/150-180. Pt v erbalizes understanding. 3. Patient is alert, oriented and receptive to making changes or counseling. Notes: Seen for an assessment of current glucose pattern, changes in treatment plan, counseling andcoordination of care related to diabetes, risks, and [...] or sores that do not appear to behealing. 4. Meter: Plan to check blood glucose: [...] provider. Refills should be requested at the timeof your visit. Dec,ietary counseling and surveillance (ICD-10 - Z71.3)Eat well, exercise well, be well: dietary and fitness guidelines material was published Dec,Hyperlipidemia (ICD-10 - E78.5)Managing your cholesterol material was published 08/2022 ldl 67- at target. On statin. Trig 234 Dec,HTN (hypertension) (ICD-10 - I10)Qs to ask: hypertension material was published on vita Dec,Long term current use of insulin (ICD-10 - Z79.4) Dec,eripheral neuropathy (ICD-10 - G62.9)Living with peripheral neuropathy material was published Dec,Vitamin B 12 deficiency (ICD-10 - E53.8)Good food sources of vitamin B12 material was published 08/2022 Vit b12 392 at target Dec,Injury of foot, left (ICD-10 - S99.922A) Referral to podiatry Dec,MI 30.0-30.9,adult (ICD-10 - Z68.30) Eating healthy: tips to make it easier material was published [facility] Other 09-06-2023 Evaluation note* Encounter Date Diagnosis Assessment Notes Treatment Notes Treatment Clinical Notes Dec, Esophageal stricture (ICD-10 - K 22.2) Dec,ysphagia (ICD-10 - R13.10)Patient has a narrow esophagus but is improving Patient is to continue omeprazole daily [facility] Other 09-01-2023 Evaluation note* Encounter Date Diagnosis Assessment Notes Treatment Notes Treatment Clinical Notes Dec, Primary insomnia (ICD-10 - F51.0 1) [facility] Other 08-22-2023 Evaluation note* Encounter Date Diagnosis Assessment Notes Treatment Notes Treatment Clinical Notes Nov, Primary insomnia (ICD-10 - F51.0 1) [facility] Other 08-02-2023 Evaluation note* Encounter Date Diagnosis [...] Keita DO. Document reviewed and amended by prov ider signed below. UTD on mammogram, lung cancer and colon cancer screening Due for DEXA Declines all vaccines Nov,eripheral neuropathy (ICD-10 - G62.9) Nov,ost-menopausal (ICD-10 - Z78.0) Nov,igarette nicotine dependence (ICD-10 - F17.200)Chantix has worked well in the past, will restart. Follow up in 3 months for recheck Nov,OtherPersonalized health advice was given to the beneficiary including a written plan for screenings discussed and provided. Advanced care planning reviewed and/or information given as requested. Additional counseling was provided here today in regards to, [ ]. The above visit was performed by Loren PICKARD under direct supervision of Dr. Sandra Keita DO. Document reviewed and amended by provider signed below. [facility] Other 07-11-2023 Evaluation note* Encounter Date Diagnosis Assessment Notes Treatment Notes Treatment Clinical Notes Oct, Primary insomnia (ICD-10 - F51.0 1) [facility] Other 06-01-2023 Evaluation note* Encounter Date Diagnosis Assessment Notes Treatment Notes Treatment Clinical Notes Sep, Type 2 diabetes mellitus with hy perglycemia (ICD-10 - E11.65) Managing type 2 diabetes material was published 1. Controlled, Type 2 diabetes with A1c 6.6% 2. Blood glucose levels improved. According to [employer] cgm download 09/13/2022- 09/26/2022: Avg glucose 151. >250-0%, >180-14%, 70-180-86%, <70-0%, <54-0%. CV 16%. Reviewed downlod with pt., readings above target from higher carb load meals. Overall glucose pattern improved. Reviewed with pttarget fasting am/meal to meal glucose 90/130, 2 hours after meal <180; bedtime 120/150-180. Pt v erbalizes understanding. 3. Patient is alert, oriented and receptive to making changes or counseling. Notes: Seen for an assessment of current glucose pattern, changes in treatment plan, counseling andcoordination of care related to diabetes, risks, and [...] or sores that do not appear to behealing. 4. Meter: Plan to check blood glucose: [...] provider. Refills should be requested at the timeof your visit. Sep,ietary counseling and surveillance (ICD-10 - Z71.3)Eat well, exercise well, be well: dietary and fitness guidelines material was published Sep,Hyperlipidemia (ICD-10 - E78.5)Managing your cholesterol material was published 08/2022 ldl 67- at target. On statin. Trig 234 Sep,HTN (hypertension) (ICD-10 - I10)Qs to ask: hypertension material was published on [employer]ita Sep,Long term current use of insulin (ICD-10 - Z79.4) Sep,eripheral neuropathy (ICD-10 - G62.9)Living with peripheral neuropathy material was published Sep,Vitamin B 12 deficiency (ICD-10 - E53.8)Good food sources of vitamin B12 material was published 08/2022 Vit b12 392 at target Sep,MI 29.0-29.9,adult (ICD-10 - Z68.29)Eating healthy: tips to make it easier material was published [facility] Other 05-15-2023 Evaluation note* Encounter Date Diagnosis Assessment Notes Treatment Notes Treatment Clinical Notes August, Primary hypertension (ICD-10 - I 10) August,Type 2 diabetes mellitus with hyperglycemia (ICD-10 - E11.65) [facility] Other 04-13-2023 Evaluation note* Encounter Date Diagnosis Assessment Notes Treatment Notes Treatment Clinical Notes Jul, Primary insomnia (ICD-10 - F51.0 1) trial increasing dose of nortriptyline to 100mg at bedtime. Continue temazepam PRN. Advised to trial breathing exericse of meditation when waking up in the night. Consider restarting CPAP therapy if continuing to have excessive daytime somnolence. Jul,igarette nicotine dependence (ICD-10 - F17.200)Due for LDCT for lung CA screening [facility] Other 04-10-2023 Evaluation note* Encounter Date Diagnosis Assessment Notes Treatment Notes Treatment Clinical Notes Jul, Primary insomnia (ICD-10 - F51.0 1) [facility] Other 03-08-2023 Evaluation note* Encounter Date Diagnosis Assessment Notes Treatment Notes Treatment Clinical Notes Jun, Primary insomnia (ICD-10 - F51.0 1) [facility] Other 02-21-2023 Evaluation note* Encounter Date Diagnosis Assessment Notes Treatment Notes Treatment Clinical Notes May, Type 2 diabetes mellitus with hy perglycemia (ICD-10 - E11.65) [facility] Other 02-20-2023 Evaluation note* Encounter Date Diagnosis Assessment Notes Treatment Notes Treatment Clinical Notes May, Type 2 diabetes mellitus with hy perglycemia (ICD-10 - E11.65) Managing type 2 diabetes material was published 1. Uncontrolled, Type 2 diabetes with A1c 7.1% 2. Blood glucose levels improved. According to [employer] cgm download 06/04/2022- 06/17/2022: Avg glucose 180. >250-1%, >180-48%, 70-180-51%, <70-0%, [...] glucose pattern, changes in treatment plan, counseling andcoordination of care related to diabetes, risks, and [...] or sores that do not appear to behealing. 4. Meter: Plan to check blood glucose: [...] provider. Refills should be requested at the timeof your visit. May,ietary counseling and surveillance (ICD-10 - Z71.3)Eat well, exercise well, be well: dietary and fitness guidelines material was published May,Hyperlipidemia (ICD-10 - E78.5)Managing your cholesterol material was published 08/2021 ldl 68- at target. On statin May,HTN (hypertension) (ICD-10 - I10)Qs to ask: hypertension material was published on [employer]ita May,Long term current use of insulin (ICD-10 - Z79.4) May,eripheral neuropathy (ICD-10 - G62.9)Living with peripheral neuropathy material was published May,Vitamin B 12 deficiency (ICD-10 - E53.8)Good food sources of vitamin B12 material was published 08/2021 Vit b12 368 at target May,MI 35.0-35.9,adult (ICD-10 - Z68.35)Setting weight-loss goals material was published [facility] Other 02-06-2023 Evaluation note* Encounter Date Diagnosis Assessment Notes Treatment Notes Treatment Clinical Notes May, Primary insomnia (ICD-10 - F51.0 1) [facility] Other 01-26-2023 Evaluation note* Encounter Date Diagnosis Assessment Notes Treatment Notes Treatment Clinical Notes Apr, Hyperlipidemia (ICD-10 - E78.5) [facility] Other 12-06-2022 Evaluation note* Encounter Date Diagnosis Assessment Notes Treatment Notes Treatment Clinical Notes Mar, Type 2 diabetes mellitus with hy perglycemia (ICD-10 - E11.65) [facility] Other 10-19-2022 Evaluation note* Encounter Date Diagnosis Assessment Notes Treatment Notes Treatment Clinical Notes Jan, Primary hypertension (ICD-10 - I 10) [facility] Other 09-13-2022 Evaluation note* Encounter Date Diagnosis Assessment Notes Treatment Notes Treatment Clinical Notes Dec, Type 2 diabetes mellitus with hy perglycemia (ICD-10 - E11.65) Managing type 2 diabetes material was published 1. Uncontrolled, Type 2 diabetes with A1c 7.7% 2. Blood glucose levels above target. According to [employer] cgm download 12/26/2021- 01/08/2022: Avg glucose 211. >250-19%, >180-33%, 70-180-48%, <70-0%, <54-0%. CV 36.7%. Reviewed downlod withpt., readings above target fasting am/posptrandial. Recommend starting basal insulin. Sample toujeogiven pt administered 20 units. Reviewed with pt how to tirate basal insulin according to fasting am glucose- pt verbalizes understanding. 3. Patient is alert, oriented and receptive to making changes or counseling. Notes: Seen for an assessment of current glucose pattern, changes in treatment plan, counseling andcoordination of care related to diabetes, risks, and [...] or sores that do not appear to behealing. 4. Meter: Plan to check blood glucose: [...] Sent order for toujeo to deisy squires. Dec,ietary counseling and surveillance (ICD-10 - Z71.3)Eat well, exercise well, be well: dietary and fitness guidelines material was published Dec,Hyperlipidemia (ICD-10 - E78.5)Managing your cholesterol material was published 08/2021 ldl 68- at target. On statin Dec,HTN (hypertension) (ICD-10 - I10)Qs to ask: hypertension material was published Dec,Long term current use of insulin (ICD-10 - Z79.4) Dec,eripheral neuropathy (ICD-10 - G62.9)Living with peripheral neuropathy material was published Dec,Vitamin B 12 deficiency (ICD-10 - E53.8)Good food sources of vitamin B12 material was published 08/2021 Vit b12 368 at target Dec,MI 28.0-28.9,adult (ICD-10 - Z68.28)Healthy eating on a budget material was published 6 pound weight loss from last visit, continue with weight loss efforts [facility] Other 08-17-2022 Progress note Author Walter Montgomery [facility] December 13, 2021 8:52amNote Date/TimeAugust 2021 8:52[place] [address] General Surgery Progress Note Signed Patient: Taye Gay MR#: [id number] : 1955 Acct:[id number] Age/Sex: 66 / F Adm Date: 2 Loc: Room: [address] [place] [address] Type: ADM Marmolejo Attending Dr: Wilmer Vance [...] (Admelog SoloStar U-100 Insulin lispro) 1 sliding scaledose subcut USEASDIRECTD 02/09/21 [History Confirmed 12/09/21] lisinopril [...] Tablet.) 81 mg PO DAILY [facility] Stop: 12/10/22 08:59 Last Admin: 12/12/21 10:33 Dose: Not Given Atorvastatin Calcium (Atorvastatin 10 Mg Tablet) 10 mg PO DAILY [facility] Stop: 12/10/22 08:59 Last Admin: 12/12/21 10:33 Dose: Not Given Cyanocobalamin (Cyanocobalamin 1,000 Mcg Tablet) 1,000 mcg PO DAILY [facility] Stop: 12/13/22 08:59 Dextrose (Dextrose 50% In Water 25 Gm/50 Ml Syringe) 0 gm IV-PUSH PRN PRN PRN Reason: Hypoglycemia Stop: 12/09/22 11:18 Docusate Sodium (Docusate 100 Mg Capsule) 100 mg PO TID [facility] Stop: 12/12/22 21:59 Last Admin: 12/12/21 22:26 [...] @ 100 mls/hr IV Q24H [facility] Last Admin: 12/12/21 11:57 Dose: 100 mls/hr Sodium Chloride (0.9% Sodium Chloride 1,000 Ml) 1,000 mls @ 100 mls/hr IV .E38PCMW Stop: 12/12/22 00:00 Last Infusion: 12/13/21 03:35 Dose: Infused Lactated Ringer's (Lactated Ringers) 1,000 mls @ 20 mls/hr IV .Q24H ONE Stop: 12/13/21 11:13 Last Infusion: 12/13/21 03:31 Dose: Infused Insulin Aspart (Insulin Aspart 300 Units/3 Ml Insuln.Pen) 0 units SUBCUT TID..[facility]; Protocol Stop: 12/09/22 11:59 Last Admin: 12/13/21 08:07 Dose: 4 units Nortriptyline HCl (Nortriptyline 25 Mg Capsule) 50 mg PO BID [facility] Stop: 12/09/22 20:59 Last Admin: 12/12/21 22:27 Dose: 50 mg Omeprazole (Omeprazole 20 Mg Capsule.Dr) 20 mg PO DAILY [facility] Stop: 12/10/22 08:59 Last Admin: 12/12/21 10:33 Dose: Not Given Ondansetron HCl (Ondansetron 4 Mg/2 Ml Vial) 4 mg IV-PUSH Q6H PRN PRN Reason: Nausea And Vomiting Stop: 12/12/22 18:19 Pioglitazone HCl (Pioglitazone 15 Mg Tablet) 15 mg PO DAILY [facility] Stop: 12/10/22 08:59 Last Admin: 12/12/21 10:33 [...] distress. Lungs are clear. Heart is regular raterhythm. Abdomen is soft nontender nondistended. Incisions are [...] Sodium 137, Potassium 4.4, Chloride 105, Carbon Cuzhshg27.6, BUN 12, Creatinine 0.75, Est GFR ( Amer) > 60, Est GFR (Non-Af Amer) > 60, TotalBilirubin 0.7, Direct Bilirubin 0.2, Indirect Bilirubin 0.5 12/13/21 05:58: Corrected WBC 9.4, Uncorrected WBC Count 9.4, RBC 4.41, Hgb 14.2, Hct 41.9, MCV 95.1, MCH 32.2, MCHC 33.9, RDW 12.9, Plt Count 178, MPV 9.3,Neut % (Auto) 90.4, Lymph % (Auto) 7.7, [place] % (Auto) 1.8, Eos % (Auto) 0.0, Baso % (Auto) 0.1, Neut # (Auto) 8.5 H, Lymph # (Auto) 0.7 L, [place]# (Auto) 0.2, Eos # (Auto) 0.0, Baso # (Auto) 0.0, Nucleated RBC % (auto) 0.0 12/12/21 20:42: POC Glucose 214 12/12/21 18:25: POC Glucose 178 12/12/21 15:26: POC Glucose 133 12/12/21 11:48: POC Glucose 167 12/12/21 07:47: PHA Creatinine Clear 83.77, Sodium 136, Potassium 3.8, Chloride 103, Carbon Sarqxvd26.5, BUN 5 L, Creatinine 0.76, Est GFR ( Amer) > 60,Est GFR (Non-Af Amer) > 60, TotalBilirubin 0.7, Direct Bilirubin 0.2, Indirect Bilirubin 0.5, AST 22, Alkaline Phosphatase 92 12/12/21 07:47: PT 14.1 H, INR 1.3, APTT 30.0 12/12/21 07:47: Corrected WBC 7.2, Uncorrected WBC Count 7.2, RBC 4.40, Hgb 14.0, Hct 41.6, MCV 94.6, MCH 31.9, MCHC 33.7, RDW 12.9, Plt Count 160, MPV 9.4,Neut % (Auto) 72.7, Lymph % (Auto) 16.1, [place] % (Auto) 8.8, Eos % (Auto) 2.1, Baso % (Auto) 0.3, Neut # (Auto) 5.3, Lymph # (Auto) 1.2, [place] # (Auto) 0.6, Eos# (Auto) 0.2, Baso [...] Neut % (Auto) 66.8, Lymph % (Auto) 21.0,[place] % (Auto) 9.2, Eos % (Auto) 2.6, Baso % (Auto) 0.4, Neut # (Auto) 4.1, Lymph # (Auto) 1.3, [place]# (Auto) 0.6, Eos # (Auto) 0.2, Baso [...] signed by DO Walter Montgomery> 12/13/21 0852 [facility] Work Phone: 1(161) 581-195708-16-2022 Progress note Author Teresa Strong [facility] December 12, 2021 8:43pmNote Date/TimeAugust 2021 2:49pm[place] [address] Urology Progress Note Signed Patient: Taye Gay MR#: [id number] : 1955 Acct:[id number] Age/Sex: 66 / F Adm Date: 2 Loc: Room: [address] [place] [address] Type: ADM INOo Attending Dr: Arleen Stephen [...] hydronephrosis, stones or recent instrumentation. There was noinflammation around the bowels or appendix. Mild diverticulosis [...] or blood within urine. Does note increased urgencyand frequency the past month but otherwise denies [...] Sodium 136, Potassium 3.8, Chloride 103, Carbon Dpfxnfx35.5, BUN 5 L, Creatinine 0.76, Est GFR ( Amer) > 60,Est GFR (Non-Af Amer) > 60, TotalBilirubin 0.7, Direct Bilirubin 0.2, Indirect Bilirubin 0.5, AST 22, Alkaline Phosphatase 92 12/12/21 07:47: PT 14.1 H, INR 1.3, APTT 30.0 12/12/21 07:47: Corrected WBC 7.2, Uncorrected WBC Count 7.2, RBC 4.40, Hgb 14.0, Hct 41.6, MCV 94.6, MCH 31.9, MCHC 33.7, RDW 12.9, Plt Count 160, MPV 9.4,Neut % (Auto) 72.7, Lymph % (Auto) 16.1, [place] % (Auto) 8.8, Eos % (Auto) 2.1, Baso % (Auto) 0.3, Neut # (Auto) 5.3, Lymph # (Auto) 1.2, [place] # (Auto) 0.6, Eos# (Auto) 0.2, Baso [...] Neut % (Auto) 66.8, Lymph % (Auto) 21.0,[place] % (Auto) 9.2, Eos % (Auto) 2.6, Baso % (Auto) 0.4, Neut # (Auto) 4.1, Lymph # (Auto) 1.3, [place]# (Auto) 0.6, Eos # (Auto) 0.2, Baso [...] there is concern for stool in urine orshe does not improve while inpt, will obtain [...] <Electronically signed by Teresa Strong MD> 12/12/212042 [facility] Work Phone: 1(901) 290-214008-16-2022 Progress note Author Arleen Stephen [facility] December 12, 2021 1:20pmNote Date/TimeAugust 2021 1:20pm[place] [address] Hospitalist Progress Note Signed Patient: Taye Gay MR#: [id number] : 1955 Acct:[id number] Age/Sex: 66 / F Adm Date: 2 Loc: Room: [address] [place] [address] Type: ADM INOo Attending Dr: Arleen Stephen [...] show any sign of cholecystitis, ultrasound gallbladder doneas well, Patient continues to complain of abdominal pain General surgery consulted, patient went for possible appendectomy and cholecystectomy today Patient on Rocephin, urine culture E. coli sensitive to Rocephin Leukocytosis resolved, Urology consulted for possible colovesical fistula, neurology will evaluate further if patient continues to have symptoms if patient does improve after the surgical intervention, patient to follow-upwith urology as outpatient, De La Garza's cath was placed yes Polycythemia secondary to history of tobacco abuse/hemoconcentration continue tomonitor CBC daily :Improved History of diabetes, patient on metformin Jardiance insulin and pioglitazone, hold onto metformin and Jardiance for now : Blood sugars been better controlled History of hypertension, patient on lisinopril 10, blood pressure has been stable without lisinopril, continue to hold DVT prophylaxis Documented By: Arleen Stephen MD 12/12/21 1319 Signed By: <Electronically signed by Arleen Stephen MD> 12/12/21 1320 [facility] Work Phone: [phone] 988-972308-16-2022 Progress note Author Walter Montgomery [facility] December 12, 2021 8:07amNote Date/TimeAugust 2021 8:07[place] [id number] General Surgery Progress Note Signed Patient: Taye Gay MR#: [id number] : 1955 Acct:[id number] Age/Sex: 66 / F Adm Date: 2 Loc: Room: [address] [place] [address] Type: ADM INOo Attending Dr: Arleen Stephen [...] 12/09/21] insulin lispro 100 unit/mL [facility] Insulin lispro) 1 sliding scaledose subcut USEASDIRECTD 02/09/21 [History Confirmed 12/09/21] lisinopril [...] Tablet.) 81 mg PO DAILY [facility] Stop: 12/10/22 08:59 Last Admin: 12/11/21 08:00 Dose: 81 mg Atorvastatin Calcium (Atorvastatin 10 Mg Tablet) 10 mg PO DAILY [facility] Stop: 12/10/22 08:59 Last Admin: 12/11/21 08:00 Dose: 10 mg Dextrose (Dextrose 50% In Water 25 Gm/50 Ml Syringe) 0 gm IV-PUSH PRN PRN PRN Reason: Hypoglycemia Stop: 12/09/22 11:18 Enoxaparin Sodium (Enoxaparin 40 Mg/0.4 Ml Syringe) 40 mg SUBCUT DAILY@10 [facility] Stop: 12/10/22 09:59 Last Admin: 12/11/21 09:19 [...] @ 100 mls/hr IV Q24H [facility] Last Infusion: 12/11/21 10:15 Dose: Infused Sodium Chloride (0.9% Sodium Chloride 1,000 Ml) 1,000 mls @ 100 mls/hr IV .[id number] Stop: 12/12/22 00:00 Last Admin: 12/12/21 00:10 Dose: 100 mls/hr Insulin Aspart (Insulin Aspart 300 Units/3 Ml Insuln.Pen) 0 units SUBCUT TID.WM.[facility]; Protocol Stop: 12/09/22 11:59 Last Admin: 12/11/21 21:21 Dose: 3 units Nortriptyline HCl (Nortriptyline 25 Mg Capsule) 50 mg PO BID [facility] Stop: 12/09/22 20:59 Last Admin: 12/11/21 21:20 Dose: 50 mg Omeprazole (Omeprazole 20 Mg Capsule.Dr) 20 mg PO DAILY [facility] Stop: 12/10/22 08:59 Last Admin: 12/11/21 08:00 Dose: 20 mg Ondansetron HCl (Ondansetron 4 Mg/2 Ml Vial) 4 mg IV-PUSH Q8H PRN PRN Reason: Nausea And Vomiting Stop: 12/09/22 11:18 Pioglitazone HCl (Pioglitazone 15 Mg Tablet) 15 mg PO DAILY [facility] Stop: 12/10/22 08:59 Last Admin: 12/11/21 08:00 [...] distress. Lungs are clear. Heart is regular raterhythm. Abdomen and left side is completely soft, [...] Neut % (Auto) 66.8, Lymph % (Auto) 21.0,[place] % (Auto) 9.2, Eos % (Auto) 2.6, Baso % (Auto) 0.4, Neut # (Auto) 4.1, Lymph # (Auto) 1.3, [place]# (Auto) 0.6, Eos # (Auto) 0.2, Baso # (Auto) 0.0, Nucleated RBC % (auto) 0.1 12/11/21 11:05: POC Glucose 195 12/11/21 06:58: POC Glucose 172 12/10/21 21:10: POC Glucose 249 12/10/21 16:18: POC Glucose 176 12/10/21 11:20: POC Glucose 268 12/10/21 06:50: PHA Creatinine Clear 75.03, Sodium 139, Potassium 4.0, Chloride 107, Carbon Gxgbahl90.2, BUN 8 L, Creatinine 0.86, Est GFR [...] <Electronically signed by DO Walter Montgomery> 12/12/21 08 [facility] Work Phone: [phone] Consult note Author Teresa Strong [facility] December 11, 2021 9:25pmNote Date/TimeAugust 2021 8:10[place] [address] Urology Consult Note Signed Patient: Taye Gay MR#: [id number] : 1955 Acct:[id number] Age/Sex: 66 / F Adm Date: 2 Loc: Room: [address] [place] [address] Type: ADM INOo Attending Dr: Arleen Stephen [...] hydronephrosis, stones or recent instrumentation. There was noinflammation around the bowels or appendix. Mild diverticulosis [...] or blood within urine. Does note increased urgencyand frequency the past month but otherwise denies [...] (Admelog SoloStar U-100 Insulin lispro) 1 sliding scaledose subcut USEASDIRECTD 02/09/21 [History Confirmed 12/09/21] lisinopril [...] Neut % (Auto) 66.8, Lymph % (Auto) 21.0,[place] % (Auto) 9.2, Eos % (Auto) 2.6, Baso % (Auto) 0.4, Neut # (Auto) 4.1, Lymph # (Auto) 1.3, [place]# (Auto) 0.6, Eos # (Auto) 0.2, Baso # (Auto) 0.0, Nucleated RBC % (auto) 0.1 12/11/21 11:05: POC Glucose 195 12/11/21 06:58: POC Glucose 172 12/10/21 21:10: POC Glucose 249 12/10/21 16:18: POC Glucose 176 12/10/21 11:20: POC Glucose 268 12/10/21 06:50: PHA Creatinine Clear 75.03, Sodium 139, Potassium 4.0, Chloride 107, Carbon Aistlrj74.2, BUN 8 L, Creatinine 0.86, Est GFR ( Amer) > 60,Est GFR (Non-Af Amer) > 60, Glucose 153 H, Calcium 8.8 12/10/21 06:50: Corrected WBC 7.4, Uncorrected WBC Count 7.4, RBC 4.38, Hgb 14.0, Hct 41.5, MCV 94.9, MCH 32.0, MCHC 33.7, RDW 13.1, Plt Count 141 L D, MPV 9.3, Neut % (Auto) 63.3, Lymph % (Auto) 24.1, [place] % (Auto) 10.5, Eos % (Auto) 1.8, Baso % (Auto) 0.3, Neut # (Auto) 4.7, Lymph # (Auto) 1.8, [place] # (Auto) 0.8, Eos # (Auto) 0.1, [...] and/or tiny stones.? There is no pericholecystic inflammation.?The liver, spleen and pancreas show no significant [...] absent.? The urinary bladder is not adequately distendedfor assessment however it does appear to contain [...] <Electronically signed by Teresa Strong MD> 12/11/21 [facility] Work Phone: [phone] Consult note Author Walter Montgomery [facility] December 11, 2021 3:18pmNote Date/TimeAugust 2021 3:18[place] [address] General Surgery Consult Note Signed Patient: Taye Gay MR#: [id number] : 1955 Acct:[id number] Age/Sex: 66 / F Adm Date: 2 Loc: Room: [address] [place] [address] Type: ADM INOo Attending Dr: Arleen Stephen MD Copies to: NON STAFF MD Walter Kay Vamsi Ulises,DO~ History of Present Illness Date of consult: [...] she was probably not going to come andget it checked out but he made her. She is not having any nausea or vomiting. She wasnot having anyfevers chills or sweats. She does not get [...] (Admelog SoloStar U-100 Insulin lispro) 1 sliding scaledose subcut USEASDIRECTD 02/09/21 [History Confirmed 12/09/21] lisinopril [...] Tablet.) 81 mg PO DAILY [facility] Stop: 12/10/22 08:59 Last Admin: 12/11/21 08:00 Dose: 81 mg Atorvastatin Calcium (Atorvastatin 10 Mg Tablet) 10 mg PO DAILY [facility] Stop: 12/10/22 08:59 Last Admin: 12/11/21 08:00 Dose: 10 mg Dextrose (Dextrose 50% In Water 25 Gm/50 Ml Syringe) 0 gm IV-PUSH PRN PRN PRN Reason: Hypoglycemia Stop: 12/09/22 11:18 Enoxaparin Sodium (Enoxaparin 40 Mg/0.4 Ml Syringe) 40 mg SUBCUT DAILY@10 [facility] Stop: 12/10/22 09:59 Last Admin: 12/11/21 09:19 [...] @ 100 mls/hr IV Q24H [facility] Last Infusion: 12/11/21 10:15 Dose: Infused Insulin Aspart (Insulin Aspart 300 Units/3 Ml Insuln.Pen) 0 units SUBCUT TID.WM.[facility]; Protocol Stop: 12/09/22 11:59 Last Admin: 12/11/21 11:33 Dose: 3 units Nortriptyline HCl (Nortriptyline 25 Mg Capsule) 50 mg PO BID [facility] Stop: 12/09/22 20:59 Last Admin: 12/11/21 08:00 Dose: 50 mg Omeprazole (Omeprazole 20 Mg Capsule.Dr) 20 mg PO DAILY [facility] Stop: 12/10/22 08:59 Last Admin: 12/11/21 08:00 Dose: 20 mg Ondansetron HCl (Ondansetron 4 Mg/2 Ml Vial) 4 mg IV-PUSH Q8H PRN PRN Reason: Nausea And Vomiting Stop: 12/09/22 11:18 Pioglitazone HCl (Pioglitazone 15 Mg Tablet) 15 mg PO DAILY [facility] Stop: 12/10/22 08:59 Last Admin: 12/11/21 08:00 [...] Capsule) 30 mg PO QHS [facility] Stop: 12/09/22 21:59 Last Admin: 12/10/21 21:14 [...] % (Auto) 66.8, Lymph % (Auto) 21.0, [place] % (Auto) 9.2, Eos % (Auto) 2.6, Baso % (Auto) 0.4, Neut # (Auto) 4.1, Lymph # (Auto) 1.3, [place] # (Auto) 0.6, Eos# (Auto) 0.2, Baso # (Auto) 0.0, Nucleated RBC % (auto) 0.1 12/11/21 11:05: POC Glucose 195 12/11/21 06:58: POC Glucose 172 12/10/21 21:10: POC Glucose 249 12/10/21 16:18: POC Glucose 176 12/10/21 11:20: POC Glucose 268 12/10/21 06:50: PHA Creatinine Clear 75.03, Sodium 139, Potassium 4.0, Chloride 107, Carbon Qwyhddk84.2, BUN 8 L, Creatinine 0.86, Est GFR ( Amer) > 60,Est GFR (Non-Af Amer) > 60, Glucose 153 H, Calcium 8.8 12/10/21 06:50: Corrected WBC 7.4, Uncorrected WBC Count 7.4, RBC 4.38, Hgb 14.0, Hct 41.5, MCV 94.9, MCH 32.0, MCHC 33.7, RDW 13.1, Plt Count 141 L D, MPV 9.3, Neut % (Auto) 63.3, Lymph % (Auto) 24.1, [place] % (Auto) 10.5, Eos % (Auto) 1.8, Baso % (Auto) 0.3, Neut # (Auto) 4.7, Lymph # (Auto) 1.8, [place] # (Auto) 0.8, Eos # (Auto) 0.1, [...] Sodium 139, Potassium 3.9, Chloride 101, Carbon Lpkzipc38.4, BUN 8 L, Creatinine 0.81, Est GFR [...] % (Auto) 79.8, Lymph % (Auto) 9.6, [place] % (Auto) 9.1, Eos % (Auto)1.1, Baso % (Auto) 0.4, Neut # (Auto) 10.3 H, Lymph # (Auto) 1.2, [place] # (Auto) 1.2 H, Eos # (Auto) 0.1, Baso # (Auto) 0.1, Nucleated RBC % (auto) 0.0 12/09/21 08:35: Urine Color Yellow, Urine Appearance Cloudy A, Urine pH 5.5, Ur Specific [place] 1.030, Urine Protein Negative, Urine Glucose (UA) [...] pneumaturia, possibly has a longstanding colovesical fistula. Patientdoes not get frequent urinary tract infections. If [...] <Electronically signed by DO Walter Montgomery> 12/11/211517 [facility] Work Phone: [phone] Progress note Author Arleen Stephen [facility] December 11, 2021 1:33pmNote Date/TimeAugust 2021 1:30[place] [address] Hospitalist Progress Note Signed Patient: Taye Gay MR#: [id number] : 1955 Acct:[id number] Age/Sex: 66 / F Adm Date: 2 Loc: 3T Room: [address] [place] [address] Type: ADM INOo Attending Dr: Arleen Stephen [...] today is day 3, had positive Alarcon signtoday, LFTs were normal, will consult general surgery,, [...] show any sign of cholecystitis, ultrasound gallbladder doneas well, Patient continues to complain of abdominal pain Will call general surgery Get labs today. Patient on Rocephin, urine culture E. coli sensitive to Rocephin Leukocytosis resolved, will get labs today Will DC fluids since patient has been tolerating p.o. well Polycythemia secondary to history of tobacco abuse/hemoconcentration continue tomonitor CBC daily :Improved History of diabetes, patient on metformin Jardiance insulin and pioglitazone, hold onto metformin and Jardiance for now : Blood sugars been better controlled History of hypertension, patient on lisinopril 10, blood pressure has been stable without lisinopril, continue to hold DVT prophylaxis Documented By: Arleen Stephen MD 12/11/21 1326 Signed By: <Electronically signed by Arleen Stephen MD> 12/11/21 1333 [facility] Work Phone: [phone] Progress note Author Arleen Stephen [facility] December 10, 2021 11:26amNote Date/TimeAugust 2021 11:26[place] [address] Hospitalist Progress Note Signed Patient: Taye Gay MR#: [id number] : 1955 Acct:[id number] Age/Sex: 66 / F Adm Date: 2 Loc: Room: [address] [place] [address] Type: ADM IN Attending Dr: Arleen Stephen [...] 1,000 Ml IV 12/09/22 11:29 75 mls/hr .[id number] PARMJIT Administration Ceftriaxone Sodium 1 gm in [...] show any sign of cholecystitis, ultrasound gallbladder doneas well, Patient on Rocephin Urine culture growing gram-negative bacilli Final cultures pending Gentle hydration Leukocytosis resolved Polycythemia secondary to history of tobacco abuse/hemoconcentration continue tomonitor CBC daily :Improved History of diabetes, patient on metformin Jardiance insulin and pioglitazone, hold onto metformin and Jardiance for now : Blood sugars been better controlled History of hypertension, patient on lisinopril 10, blood pressure on the borderline lower side, will gradually resume DVT prophylaxis Documented By: Arleen Stephen MD 12/10/211123 Signed By: <Electronically signed by Arleen Stephen MD> 12/10/216 [facility] Work Phone: [phone]) 112-764508-13-2022 History and physical note Author Arleen Stephen [facility] December 09, 2021 11:38amNote Date/TimeAugust 2021 11:38[place], [place] [address] Hospitalist H&P Signed Patient: Taye Gay MR#: [id number] : 1955 Acct:[id number] Age/Sex: 66 / F Adm Date: 2 Loc: ER Room: Type: [facility] ER Attending Dr: Copies to: NON [...] (Admelog SoloStar U-100 Insulin lispro) 1 sliding scaledose subcut USEASDIRECTD 02/09/21 [History Confirmed 02/09/21] lisinopril [...] % (Auto) 9.6 % (.) 12/09/21 08:50 [place] % (Auto) 9.1 % (.) 12/09/21 08:50 Eos % (Auto) 1.1 % (.) 12/09/21 08:50 Baso % (Auto) 0.4 % (.) 12/09/21 08:50 Neut # (Auto) 10.3 x10E3/uL (1.8-7.7) H 12/09/21 08:50 Lymph # (Auto) 1.2 x10E3/uL (1.00-4.8) 12/09/21 08:50 [place] # (Auto) 1.2 x10E3/uL (0.0-0.8) H 12/09/21 [...] pH 5.5 (5.0-9.0) 12/09/21 08:35 Ur Specific [place] 1.030 (1.001-1.030) 12/09/21 08:35 Urine Protein Negative [...] signed by Arleen Stephen MD> 12/09/21 1138 [facility] Work Phone: [phone] Evaluation note* Encounter Date Diagnosis Assessment Notes Treatment Notes Treatment Clinical Notes Sep, Medicare annual wellness visit, initial (ICD-10 - Z00.00) Personalized health advice was given to the beneficiary including a written plan for screenings discussed and provided. Advanced care planning reviewed and/or information given as requested. The above visit was performed by Loren PICKARD, under direct supervision of Dr. Crispin Looney DO.Document reviewed and amended by provider signed below. Patient denies any complaints or concerns today. Denies any symptoms of shortness of breath, chest pains, palpitations. Reports good exercise tolerance overall. [facility] however we check an A1c today and it is higher than typical at 7.5%.I encouraged her to work on her diet and she will follow-up with diabetes clinic in December at her regular appointment. She does see gynecology and has an appointment coming up. They are managing her Paps and mammograms. She had a colonoscopy in 2016 and should be due in 2026.Routine lab work wasdone in August and is unremarkable. Exam today is unremarkable. Sep,Type 2 diabetes mellitus with hyperglycemia (ICD-10 - E11.65) Continue management per diabetes clinic. Sep,Encounter for smoking cessation counseling (ICD-10 - Z71.6)Patient was previously trialed on Wellbutrin but states [...] to get her started back on this. [facility] Other 03-14-2022 Evaluation note* Encounter Date Diagnosis Assessment Notes Treatment Notes Treatment Clinical Notes Jun, Type 2 diabetes mellitus with hy perglycemia (ICD-10 - E11.65) Managing type 2 diabetes material was published 1. Controlled, Type 2 diabetes with A1c 6% 2. Blood glucose levels improved. According to [employer] cgm download 06/26/2021- 07/09/2021: Avg glucose 132. >250-0%, >180-4%, 70-180-96%, <70-0%, <54-0%. CV 18.4%. Reviewed downlod with pt, overall glucose pattern stable. No incidence of hypoglcyemia. 3. Patient is alert, oriented and receptive to making changes or counseling. Notes: Seen for an assessment of current glucose pattern, changes in treatment plan, counseling andcoordination of care related to diabetes, risks, and [...] or sores that do not appear to behealing. 4. Meter: Plan to check blood glucose: [...] issues. 6. Prescriptions: Will call when needed. Jun,ietary counseling and surveillance (ICD-10 - Z71.3) Eat well, exercise well, be well: dietary and fitness guidelines material was published Jun,Hyperlipidemia (ICD-10 - E78.5) Managing your cholesterol material was published 11/2020 ldl 86, trig. 201. 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 Reviewed importance of glucose/bp controlto prevent further nephropathy. Jun,MI 30.0-30.9,adult (ICD-10 - Z68.30) Healthy eating on a budget material was published 2 pound weight loss from last visit, continue with weight loss efforts Jun,allus of foot (ICD-10 - L84) f/u with Dr. Limon [facility] Other 03-07-2022 Evaluation note* Encounter Date Diagnosis Assessment Notes Treatment Notes Treatment Clinical Notes Jun, Sleep apnea, unspecified type (I CD-10 - G47.30) Patient reports symptoms, observations, and [...] apnea would also be evaluated if needed [facility] Other 01-10-2022 Evaluation note* Encounter Date Diagnosis Assessment Notes Treatment Notes Treatment Clinical Notes Apr, Insomnia, unspecified type (ICD- 10 - G47.00) Patient states she has been taking temazepam for approximately [address] Yoder. She states prior to that she had tried other medication such as Ambien without relief. She has never had asleep study. She does admit to mild snoring and she is overweight. I do recommend referral for sleep study and she agrees. This has been filled out and faxed. As for her temazepam I do explain to herthat this is not generally the best option for long-term insomnia as it is very addictive and losesefficacy over time. My plan will be to slowly wean her off the temazepam and await sleep study results. I may consider orexant inhibitors in the future. Apr,Type 2 diabetes mellitus with diabetic neuropathy, unspecified (ICD- 10 - E11.40) Type 2 diabetes mellitus. This [...] to bother her too much. I do explainthat she may wean herself off of the nortriptyline if she wishes and see how she does. She is also taking Reglan. She is not sure why but presumably for gastroparesis secondary to diabetes mellitus. She denies any symptoms related to this currently. I also explained she may trial herself off of theReglan to see how she does. Apr,Long term (current) use of insulin (ICD-10 - Z79.4) Apr,therPatient sees Dr. Irwin and is up-to-date on Paps and mammograms. She did have a colonoscopy done 5 years ago and states it was normal and she is due in 5 more years. I discussed other preventative measures such as vaccines but the patient is not at all interested in any vaccines. [facility] Other 12-14-2021 Evaluation note* Encounter Date Diagnosis Assessment Notes Treatment Notes Treatment Clinical Notes Mar, Type 2 diabetes mellitus with hy perglycemia (ICD-10 - E11.65) [facility] Other 12-06-2021 Evaluation note* Encounter Date Diagnosis Assessment Notes Treatment Notes Treatment Clinical Notes Mar, Pain in right leg (ICD-10 - M79. 604) This patient has normal noninvasive studies and she can walk as far she wishes. Her leg pain does not due to a vascular etiology. It sounds nervous in my opinion it is shooting in nature. I am going to discharge her from my office. Mar,ain in left leg (ICD-10 - M79.605) [facility] Other 11-29-2021 Evaluation note* Encounter Date Diagnosis Assessment Notes Treatment Notes Treatment Clinical Notes Feb, Type 2 diabetes mellitus with hy perglycemia (ICD-10 - E11.65) Managing type 2 diabetes material was published 1. Controlled, Type 2 diabetes with A1c 6.9% 2. Blood glucose levels according to [employer] cgm download 03/14/2021-03/27/2021: Avg glucose 167. >250-5%, >180-26%, 70-180-69%, <70-0%, [...] glucose pattern, changes in treatment plan, counseling andcoordination of care related to diabetes, risks, and [...] or sores that do not appear to behealing. 4. Meter: Plan to check blood glucose: [...] Prescriptions: Admelog/ozempic sent to [facility]. Feb,ietary counseling and surveillance (ICD-10 - Z71.3) Eat well, exercise well, be well: dietary and fitness guidelines material was published Feb,Hyperlipidemia (ICD-10 - E78.5) Managing your cholesterol material was published 11/2020 ldl 86, trig. 201. On statin Feb,HTN (hypertension) (ICD-10 - I10) Qs to ask: hypertension material was published [employer]. 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 Reviewed importance of glucose/bp controlto prevent further nephropathy. Feb,MI 30.0-30.9,adult (ICD-10 - Z68.30) Healthy eating on a budget material was published [facility] Other 11-01-2021 Evaluation note* Encounter Date Diagnosis Assessment Notes Treatment Notes Treatment Clinical Notes Feb, PAD (peripheral artery disease) (ICD-10 - I73.9) This recommended patient I recommended we start with noninvasive arterial studies to evaluate her blood supply to her feet and legs. We will order these and see her back in a week or 2 to go over theresults. There is no indication for any acute intervention at this time. This patient does not haveany critical limb ischemia no tissue loss no rest pain. The pain in her feet sounds neurologic in origin. [facility] Other Chief complaint+Reason for visit Narrative* Reason for Visit [id number] Dietary counseling and surveillance Hyperlipidemia Hypertension Insulin long-term use Peripheral neuropathy Type 2 diabetes mellitus Vitamin B 12 deficiency [facility] Work Phone: Consult note Author Walter Montgomery [facility] December 11, 2021 3:18pmNote Date/TimeAugust 2021 3:18pmDaniel [place] [id number] General Surgery Consult Note Signed Patient: Taye Gay MR#: [id number] : 1955 Acct:[id number] Age/Sex: 66 / F Adm Date: 2 Loc: 3T Room: [address] [place] [address] Type: ADM INOo Attending Dr: Arleen Stephen [...] she was probably not going to come andget it checked out but he made her. She is not having any nausea or vomiting. She wasnot having anyfevers chills or sweats. She does not get [...] 12/09/21] insulin lispro 100 unit/mL subcutaneous pen ([facility] U-100 Insulin lispro) 1 sliding scaledose subcut USEASDIRECTD 02/09/21 [History Confirmed 12/09/21] lisinopril [...] Tablet.) 81 mg PO DAILY [facility] Stop: 12/10/22 08:59 Last Admin: 12/11/21 08:00 Dose: 81 mg Atorvastatin Calcium (Atorvastatin 10 Mg Tablet) 10 mg PO DAILY [facility] Stop: 12/10/22 08:59 Last Admin: 12/11/21 08:00 [...] @ 100 mls/hr IV Q24H [facility] Last Infusion: 12/11/21 10:15 Dose: Infused Insulin Aspart (Insulin Aspart 300 Units/3 Ml Insuln.Pen) 0 units SUBCUT TID.WM.HS [facility]; Protocol Stop: 12/09/22 11:59 Last Admin: 12/11/21 11:33 Dose: 3 units Nortriptyline HCl (Nortriptyline 25 Mg Capsule) 50 mg PO BID [facility] Stop: 12/09/22 20:59 Last Admin: 12/11/21 08:00 Dose: 50 mg Omeprazole (Omeprazole 20 Mg Capsule.) 20 mg PO DAILY [facility] Stop: 12/10/22 [...] % (Auto) 66.8, Lymph % (Auto) 21.0, [place] % (Auto) 9.2, Eos % (Auto) 2.6, Baso % (Auto) 0.4, Neut # (Auto) 4.1, Lymph # (Auto) 1.3, [place] # (Auto) 0.6, Eos# (Auto) 0.2, Baso # (Auto) 0.0, Nucleated RBC % (auto) 0.1 12/11/21 11:05: POC Glucose 195 12/11/21 06:58: POC Glucose 172 12/10/21 21:10: POC Glucose 249 12/10/21 16:18: POC Glucose 176 12/10/21 11:20: POC Glucose 268 12/10/21 06:50: PHA Creatinine Clear 75.03, Sodium 139, Potassium 4.0, Chloride 107, Carbon Egxxltk45.2, BUN 8 L, Creatinine 0.86, Est GFR ( Amer) > 60,Est GFR (Non-Af Amer) > 60, Glucose 153 H, Calcium 8.8 12/10/21 06:50: Corrected WBC 7.4, Uncorrected WBC Count 7.4, RBC 4.38, Hgb 14.0, Hct 41.5, MCV 94.9, MCH 32.0, MCHC 33.7, RDW 13.1, Plt Count 141 L D, MPV 9.3, Neut % (Auto) 63.3, Lymph % (Auto) 24.1, [place] % (Auto) 10.5, Eos % (Auto) 1.8, Baso % (Auto) 0.3, Neut # (Auto) 4.7, Lymph # (Auto) 1.8, [place] # (Auto) 0.8, Eos # (Auto) 0.1, [...] Sodium 139, Potassium 3.9, Chloride 101, Carbon Xitpfbt51.4, BUN 8 L, Creatinine 0.81, Est GFR [...] % (Auto) 79.8, Lymph % (Auto) 9.6, [place] % (Auto) 9.1, Eos % (Auto)1.1, Baso % (Auto) 0.4, Neut # (Auto) 10.3 H, Lymph # (Auto) 1.2, [place] # (Auto) 1.2 H, Eos # (Auto) 0.1, Baso # (Auto) 0.1, Nucleated RBC % (auto) 0.0 12/09/21 08:35: Urine Color Yellow, Urine Appearance Cloudy A, Urine pH 5.5, Ur Specific [place] 1.030, Urine Protein Negative, Urine Glucose (UA) [...] pneumaturia, possibly has a longstanding colovesical fistula. Patientdoes not get frequent urinary tract infections. If [...] <Electronically signed by DO Walter Montgomery> 12/11/211517 [facility] Work Phone: Consult note Author Teresa Strong [facility] December 11, 2021 9:25pmNote Date/TimeAugust 2021 8:10pm[place] [address] Urology Consult Note Signed Patient: Taye Gay MR#: [id number] : 1955 Acct:[id number] Age/Sex: 66 / F Adm Date: 2 Loc: Room: [address] [place] [address] Type: ADM INOo Attending Dr: Arleen Stephen [...] hydronephrosis, stones or recent instrumentation. There was noinflammation around the bowels or appendix. Mild diverticulosis [...] or blood within urine. Does note increased urgencyand frequency the past month but otherwise denies [...] insulin lispro 100 unit/mL subcutaneous pen ([facility]) 1 sliding scaledose subcut USEASDIRECTD 02/09/21 [History Confirmed 12/09/21] lisinopril [...] Neut % (Auto) 66.8, Lymph % (Auto) 21.0,[place] % (Auto) 9.2, Eos % (Auto) 2.6, Baso % (Auto) 0.4, Neut # (Auto) 4.1, Lymph # (Auto) 1.3, [place]# (Auto) 0.6, Eos # (Auto) 0.2, Baso # (Auto) 0.0, Nucleated RBC % (auto) 0.1 12/11/21 11:05: POC Glucose 195 12/11/21 06:58: POC Glucose 172 12/10/21 21:10: POC Glucose 249 12/10/21 16:18: POC Glucose 176 12/10/21 11:20: POC Glucose 268 12/10/21 06:50: PHA Creatinine Clear 75.03, Sodium 139, Potassium 4.0, Chloride 107, Carbon Vccgayr39.2, BUN 8 L, Creatinine 0.86, Est GFR ( Amer) > 60,Est GFR (Non-Af Amer) > 60, Glucose 153 H, Calcium 8.8 12/10/21 06:50: Corrected WBC 7.4, Uncorrected WBC Count 7.4, RBC 4.38, Hgb 14.0, Hct 41.5, MCV 94.9, MCH 32.0, MCHC 33.7, RDW 13.1, Plt Count 141 L D, MPV 9.3, Neut % (Auto) 63.3, Lymph % (Auto) 24.1, [place] % (Auto) 10.5, Eos % (Auto) 1.8, Baso % (Auto) 0.3, Neut # (Auto) 4.7, Lymph # (Auto) 1.8, [place] # (Auto) 0.8, Eos # (Auto) 0.1, [...] and/or tiny stones.? There is no pericholecystic inflammation.?The liver, spleen and pancreas show no significant [...] absent.? The urinary bladder is not adequately distendedfor assessment however it does appear to contain [...] <Electronically signed by Teresa Strong MD> 12/11/212124 [facility] Work Phone: Consult note Author Lit Clark [facility]Note Date/TimeJanuary 2024 11:07am [place] [address] Neurology Consult Note Signed Patient: Taye Gay MR#: [id number] : 1955 Acct:[id number] Age/Sex: 68 / F Adm Date: 4 Loc: Room: [address] [place] [address] Type: ADM IN Attending Dr: Priscilla Lang MD Copies to: DO Sandra Garrido DO Rafik Massouh, MD~ HPI Consult Date: 04/29/24 Trustee Of Estate: Lit Clark DO Reason for consult: Slurred [...] negative unless noted below or in HPI [facility] Medical History BMI 32.0-32.9,adult Abnormal thyroid [...] History Father Heart disease [facility]: Diagnosed with Stroke Cancer [...] (Stool Softener) 100 mg PO DAILY PRN jqipdcodbywj28/14/24 [History Confirmed 04/28/24] multivitamin 1 tab PO DAILY 06/12/23 [History Confirmed 04/28/24] pen needle, diabetic [Sure-Fine Pen Dorothy] 06/12/23 [History Confirmed 04/28/24] metformin 500 mg [...] Oz Bowling M.D.04/28/2024 9:46 PM Dictation Location: [place] [address] 04/28/24 19:44 IMPRESSION: No acute intracranial pathology. No evidence of focal stenosis, aneurysmal dilatation, dissection or occlusion. 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 [...] follow. Documented By: Lit Clark DO [id number] Signed By: <Electronically signed by Lit Clark DO> 04/29/24 1107 [facility] Work Phone: Discharge summary Author Wilmer Vance [facility] December 13, 2021 1:58pmNote Date/TimeAugust 2021 1:58pm[place] [address] Discharge Summary Signed Patient: Taye Gay MR#: [id number] : 1955 Acct:[id number] Age/Sex: 66 / F Adm Date: 2 Loc: Room: [address] [place] [address]: Wilmer Vance MD Copies to: [...] decompression of UTI x 1 week. low suspicionfor fistula. Will need to follow up with [...] Sodium 137, Potassium 4.4, Chloride 105, Carbon Zcjgoxt87.6, BUN 12, Creatinine 0.75, Est GFR ( Amer) > 60, Est GFR (Non-Af Amer) > 60, TotalBilirubin 0.7, Direct Bilirubin 0.2, Indirect Bilirubin 0.5 12/13/21 05:58: Corrected WBC 9.4, Uncorrected WBC Count 9.4, RBC 4.41, Hgb 14.2, Hct 41.9, MCV 95.1, MCH 32.2, MCHC 33.9, RDW 12.9, Plt Count 178, MPV 9.3,Neut % (Auto) 90.4, Lymph % (Auto) 7.7, [place] % (Auto) 1.8, Eos % (Auto) 0.0, Baso % (Auto) 0.1, Neut # (Auto) 8.5 H, Lymph # (Auto) 0.7 L, [place]# (Auto) 0.2,Eos # (Auto) 0.0, Baso # [...] or swelling around the incision, please notify ouroffice MEDICATION -Resume all previous medications that you were taking for problems unrelated to your surgery, unless informed otherwise. If there are any problems with this, please call the original prescribing doctor. If you have any other questions regarding medications, please call our office. -Over the counter medications such as Acetaminophen, Ibuprofen, Naproxen, and others may be used asdirected for pain unless a prescription was provided. Stay away from fatty or greasy foods. Follow-up at the office of Dr. Montgomery in 1 week at your scheduled appointment Instructions: Cholecystectomy, Laparoscopic Surgery, Acetaminophen, Cefuroxime,[facility] Catheter Care at Home [...] <Electronically signed by Wilmer Vance MD> 12/13/21 [facility] Work Phone: Discharge summary Author Elva Florian [facility] September 15, 2023 1:17amNote Date/TimeMay 2023 2:20pm[place] [address] Discharge Summary Signed Patient: Taye Gay MR#: [id number] : 1955 Acct:[id number] Age/Sex: 67 / F Adm Date: 4 Loc: Room: [address] [place] [address]: Elva Florian MD Copies to: [...] GERD who was referred from doctor office toED due to incidental finding of tachycardia and [...] .Route (DME) pen needle, diabetic [Sure-Fine Pen Dorothy] .Route (DME) FreeStyle Brent 14 Day Sensor Kit See Rx Instructions .ROUTE .MEDSUPPLY Qty: 2 5RF Rx Instructions: As directed Change every 14 days Follow Up: Jonas Ch MD [Active Staff] - (Follow Up in4 weeks, call the office for appointment next Business Day after discharge) Tolu Salinas APRN [Nurse Practitioner] - 09/17/23 1:00 pm (Follow-up with your Primary CareProvider as previously scheduled. ) Exam Physical Exam [...] signed by Elva Florian MD> 09/15/23 0117 [facility] Work Phone: Discharge summary Author Priscilla Lang [facility] NorthNote Date/TimeJanuary 2024 10:28am [place] [id number] Discharge Summary Signed Patient: Taye Gay MR#: [id number] : 1955 Acct:[id number] Age/Sex: 68 / F Adm Date: 4 Loc: Room: [address] [place] [address]: Priscilla Lang MD Copies to: [...] taking multiple medications that could potentially cause METAL RECLAMATION KETTLE TENDER side effect and toxic encephalopathy. Diagnosis is [...] polypharmacy regimen to reduce her risk of METAL RECLAMATION KETTLE TENDER side effects or drug?drug interaction.At this time, [...] ask her primary care doctor to obtain [facility] record entirely to address abnormalities seen [...] constipation) (DME) pen needle, diabetic [Sure-Fine Pen Dorothy] .Route lidocaine 5 % ointment 1 applic [...] % (Auto) 63.5, Lymph % (Auto) 24.9, [place] % (Auto) 8.3, Eos % (Auto) 2.9, Baso % (Auto) 0.4, Nucleat RBC Rel Count 0.0, Neut # (Auto) 4.6, Lymph # (Auto) 1.8, [place] # (Auto) 0.6, Eos # (Auto) 0.2, [...] signed by Priscilla Lang MD> 04/30/24 1028 [facility] Work Phone: Evaluation noteNo InformationNort Numote Other Evaluation note* Diagnosis Onset Date Resolution Status Cholelithiasis acuteEmphysematous cystitisacutePyelonephritisacuteRight lateral abdominal pain acute [facility] Work Phone: Evaluation noteNo assessment information available [facility] Work Phone: Evaluation note* Diagnosis Onset Date Resolution Status [id number] acuteDietary counseling and surveillanceacuteHyperlipidemiaacuteHypertension acuteInsulin long-term useacutePeripheral neuropathyacuteType 2 diabetes mellitusacuteVitamin B 12 deficiencyacute [facility] Work Phone: Evaluation note* Diagnosis Onset Date Resolution Status BMI 28.0-28.9,adult [id number]-[id number] counseling and surveillanceacute HyperlipidemiaacuteHypertensionacuteInsulin long-term useacutePeripheral neuropathyacuteType 2 diabetes mellitusacuteVitamin B 12 deficiencyC[facility] Work Phone: Evaluation note* Diagnosis Onset Date Resolution Status BMI 28.0-28.9,adult [id number]-[id number] counseling and surveillanceacute HyperlipidemiaacuteHypertensionacuteInsulin long-term useacutePeripheral neuropathyacuteType 2 diabetes mellitusacuteVitamin B 12 deficiencyacute DizzinessacuteHypertensionacutePrimary insomniaacuteType 2 diabetes mellitus [facility] Work Phone: Evaluation note* Diagnosis Onset Date Resolution Status BMI 28.0-28.9,adult [id number]-[id number] counseling and surveillanceacute HyperlipidemiaacuteHypertensionacuteInsulin long-term useacutePeripheral neuropathyacuteType 2 diabetes mellitusacuteVitamin B 12 deficiencyacute DizzinessacuteHypertensionacutePrimary insomniaacuteType 2 diabetes mellitus acutePAD (peripheral artery disease)[facility] Work Phone: Evaluation note* Diagnosis Onset Date Resolution Status PAD (peripheral artery disease) acuteBMI 28.0-28.9,kblytkkkfyCZF-YOUY-[id number] counseling and surveillanceacuteHyperlipidemiaacuteHypertensionacutePeripheral neuropathyacute TachycardiaacuteType 2 diabetes mellitusacuteVitamin B 12 deficiencyacuteAtrial flutter with rapid ventricular responseacuteChest painacuteHyperlipidemiaacute HypertensionacuteNew onset atrial flutteracuteType 2 diabetes mellitusDoctors Hospital Work Phone: Evaluation note* Diagnosis Onset Date Resolution Status PAD (peripheral artery disease) acuteBMI 28.0-28.9,fqrsrkumzpPCZ-SYQV-[id number] counseling and surveillanceacuteHyperlipidemiaacuteHypertensionacutePeripheral neuropathyacute TachycardiaacuteType 2 diabetes mellitusacuteVitamin B 12 deficiencyacuteAtrial flutter with rapid ventricular responseacuteChest painacuteHyperlipidemiaacute HypertensionacuteNew onset atrial flutteracuteType 2 diabetes mellitusacuteNew onset atrial flutteracuteMobility impairedFirelands Regional [facility] Work Phone: Evaluation note* Diagnosis Typical atrial flutter (Multi) Nonischemic cardiomyopathy (Multi) Other primary cardiomyopathies Hypertension, unspecified type Hypercholesteremia Pure hypercholesterolemia Smoker Tobacco use disorder Type 2 diabetes mellitus with other specified complication, 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) BMI 28.0-28.9,adult documented in this encounter [facility] Work Phone: Evaluation note* Diagnosis Onset Date Resolution Status BMI 28.0-28.9,adult ewvmeLXX-[id number] counseling and surveillanceacute HyperlipidemiaacuteHypertensionacutePeripheral neuropathyacuteTachycardiaacute Type 2 diabetes mellitusacuteVitamin B 12 deficiencyacuteHyperlipidemiaacute HypertensionacuteNew onset atrial flutteracuteType 2 diabetes mellitusacute Atrial flutter with rapid ventricular responseresolvedChest painresolvedHospital discharge follow-upacuteNew onset atrial flutteracutePrimary insomniaacuteType 2 diabetes mellitusacuteMobility impairednoneactive [facility] Work Phone: Evaluation note* Diagnosis Onset Date Resolution Status BMI 28.0-28.9,adult ousueNPL-[id number] counseling and surveillanceacute HyperlipidemiaacuteHypertensionacutePeripheral neuropathyacuteTachycardiaacute Type 2 diabetes mellitusacuteVitamin B 12 deficiencyacuteHyperlipidemiaacute HypertensionacuteNew onset atrial flutteracuteType 2 diabetes mellitusacute Atrial flutter with rapid ventricular responseresolvedChest painresolvedHospital discharge follow-upacuteNew onset atrial flutteracutePrimary insomniaacuteType 2 diabetes mellitusacuteMobility impairednoneactiveAmbulatory dysfunctionacute HypomagnesemiaacuteHypothyroidacuteType 2 diabetes mellitus with hyperglycemia [facility] Work Phone: Evaluation note* Diagnosis Onset Date Resolution Status BMI 28.0-28.9,adult vzniuTLX-OBWU-[id number] counseling and surveillanceacute HyperlipidemiaacuteHypertensionacutePeripheral neuropathyacuteTachycardiaacute Type 2 diabetes mellitusacuteVitamin B 12 deficiencyacuteHyperlipidemiaacute HypertensionacuteNew onset atrial flutteracuteType 2 diabetes mellitusacute Atrial flutter with rapid ventricular responseresolvedChest painresolvedHospital discharge follow-upacuteNew onset atrial flutteracutePrimary insomniaacuteType 2 diabetes mellitusacuteMobility impairednoneactiveAmbulatory dysfunctionacute HypomagnesemiaacuteHypothyroidacuteType 2 diabetes mellitus with hyperglycemia acuteVitamin B 12 deficiencySt. [facility] Work Phone: Evaluation note* Diagnosis Onset Date Resolution Status BMI 28.0-28.9,adult oczmsWFH-[id number] counseling and surveillanceacute HyperlipidemiaacuteHypertensionacutePeripheral neuropathyacuteTachycardiaacute Type 2 diabetes mellitusacuteVitamin B 12 deficiencyacuteHyperlipidemiaacute HypertensionacuteNew onset atrial flutteracuteType 2 diabetes mellitusacute Atrial flutter with rapid ventricular responseresolvedChest painresolvedHospital discharge follow-upacuteNew onset atrial flutteracutePrimary insomniaacuteType 2 diabetes mellitusacuteMobility impairednoneactiveAmbulatory dysfunctionacute HypomagnesemiaacuteHypothyroidacuteType 2 diabetes mellitus with hyperglycemia acuteVitamin B 12 deficiencyacuteWeakcameron memorial community hospitalacuteBMI 28.0-28.9,adultacute CPP-UZEO-[id number] counseling and surveillanceacuteHyperlipidemia acuteHypertensionacutePeripheral neuropathyacuteType 2 diabetes mellitusacute Vitamin B 12 deficiencyacute [facility] Work Phone: Evaluation note* Diagnosis Onset Date Resolution Status BMI 28.0-28.9,adult lfoaeQMW-XUCR-[id number] counseling and surveillanceacute HyperlipidemiaacuteHypertensionacutePeripheral neuropathyacuteTachycardiaacute Type 2 diabetes mellitusacuteVitamin B 12 deficiencyacuteHyperlipidemiaacute HypertensionacuteNew onset atrial flutteracuteType 2 diabetes mellitusacute Atrial flutter with rapid ventricular responseresolvedChest painresolvedHospital discharge follow-upacuteNew onset atrial flutteracutePrimary insomniaacuteType 2 diabetes mellitusacuteMobility impairednoneactiveAmbulatory dysfunctionacute HypomagnesemiaacuteHypothyroidacuteType 2 diabetes mellitus with hyperglycemia acuteVitamin B 12 deficiencyacuteWeaknessacuteAbnormal thyroid blood testacute BMI 28.0-28.9,afrpcsnousLBA-AUBD-[id number] counseling and surveillanceacuteHyperlipidemiaacuteHypertensionacutePeripheral neuropathyacute Type 2 diabetes mellitusacuteVitamin B 12 deficiencyacute [facility] Work Phone: Evaluation note* Diagnosis Onset Date Resolution Status BMI 28.0-28.9,adult gqlbdVRB-[id number]-[id number] counseling and surveillanceacute HyperlipidemiaacuteHypertensionacutePeripheral neuropathyacuteTachycardiaacute Type 2 diabetes mellitusacuteVitamin B 12 deficiencyacuteHyperlipidemiaacute HypertensionacuteNew onset atrial flutteracuteType 2 diabetes mellitusacute Atrial flutter with rapid ventricular responseresolvedChest painresolvedHospital discharge follow-upacuteNew onset atrial flutteracutePrimary insomniaacuteType 2 diabetes mellitusacuteMobility impairednoneactiveAmbulatory dysfunctionacute HypomagnesemiaacuteHypothyroidacuteType 2 diabetes mellitus with hyperglycemia acuteVitamin B 12 deficiencyacuteWeaknessacuteAbnormal thyroid blood testacute BMI 28.0-28.9,egoocbdnkoCRM-DRYE-[id number] counseling and surveillanceacuteHyperlipidemiaacuteHypertensionacutePeripheral neuropathyacute Type 2 diabetes mellitusacuteVitamin B 12 deficiencyacuteHospital discharge follow-upacuteHypomagnesemiaacute [facility] Work Phone: Evaluation note* Diagnosis Onset Date Resolution Status Ambulatory dysfunction acuteHypomagnesemiaacuteHypothyroidacuteType 2 diabetes mellitus with hyperglycemiaacuteVitamin B 12 deficiencyacuteWeaknessacuteAbnormal thyroid blood testacuteBMI 28.0-28.9,zmapqwwpgyDRP-DHTD-[id number] counseling and surveillanceacuteHyperlipidemiaacuteHypertensionacutePeripheral neuropathy acuteType 2 diabetes mellitusacuteVitamin B 12 deficiencyacuteHospital discharge follow-[facility]magneseM[facility] Work Phone: Evaluation note* Diagnosis Ulcer of right foot, limited to breakdown of skin (CMS/HCC)- Primary Blister of right foot, subsequent encounter 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) documented in this encounter [facility] HealthcareEvaluation note* Diagnosis Onset Date Resolution Status Ambulatory dysfunction acuteHypomagnesemiaacuteHypothyroidacuteType 2 diabetes mellitus with hyperglycemiaacuteVitamin B 12 deficiencyacuteWeaknessacuteAbnormal thyroid blood testacuteBMI 28.0-28.9,kvzkkflajsXUF-ZWCT-[id number] counseling and surveillanceacuteHyperlipidemiaacuteHypertensionacutePeripheral neuropathy acuteType 2 diabetes mellitusacuteVitamin B 12 deficiencyacuteHospital discharge follow-[facility] Work Phone: Evaluation note* Diagnosis [...] hereditary and idiopathic peripheral neuropathy B12 deficiency PO positive Lumbosacral radiculopathy at S1 Neurogenic pain- Primary Lumbosacral radiculopathy at S1 PO positive Carpal tunnel syndrome, bilateral Carpal tunnel [...] hereditary and idiopathic peripheral neuropathy B12 deficiency PO positive Lumbosacral radiculopathy at S1 Neurogenic pain- Primary Lumbosacral radiculopathy at S1 PO positive Carpal tunnel syndrome, bilateral Carpal tunnel [...] (Multi) documented in this encounter [facility] Work Phone: Evaluation note* Diagnosis Lumbosacral radiculopathy at S1- Primary Neurogenic pain Cervical paraspinal muscle spasm Spasm of muscle Lumbar paraspinal muscle spasm Other symptoms referable to back Carpal tunnel syndrome, bilateral Carpal tunnel syndrome B12 deficiency documented in this encounter [facility] HealthcareEvaluation note* Diagnosis Nonischemic cardiomyopathy (Multi)- Primary Other primary cardiomyopathies Typical atrial flutter (Multi) Hypercholesteremia Pure hypercholesterolemia Primary hypertension Unspecified essential hypertension Current smoker BMI 28.0-28.9,adult High risk medication use documented in this encounter [facility] Work Phone: Evaluation note* [...] hereditary and idiopathic peripheral neuropathy B12 deficiency PO positive Lumbosacral radiculopathy at S1 Neurogenic pain- Primary Lumbosacral radiculopathy at S1 PO positive Carpal tunnel syndrome, bilateral Carpal tunnel [...] hereditary and idiopathic peripheral neuropathy B12 deficiency PO positive Lumbosacral radiculopathy at S1 Neurogenic pain- Primary Lumbosacral radiculopathy at S1 PO positive Carpal tunnel syndrome, bilateral Carpal tunnel [...] smoker documented in this encounter [facility] Work Phone: Evaluation note* [...] 32.0-32.9,adult Current smoker documented in this encounter [facility] Work Phone: Evaluation note* [...] hereditary and idiopathic peripheral neuropathy B12 deficiency PO positive Lumbosacral radiculopathy at S1 Neurogenic pain- Primary Lumbosacral radiculopathy at S1 PO positive Carpal tunnel syndrome, bilateral Carpal tunnel [...] hereditary and idiopathic peripheral neuropathy B12 deficiency PO positive Lumbosacral radiculopathy at S1 Neurogenic pain- Primary Lumbosacral radiculopathy at S1 PO positive Carpal tunnel syndrome, bilateral Carpal tunnel [...] hereditary and idiopathic peripheral neuropathy B12 deficiency PO positive Lumbosacral radiculopathy at S1 Neurogenic pain- Primary Lumbosacral radiculopathy at S1 PO positive Carpal tunnel syndrome, bilateral Carpal tunnel [...] hereditary and idiopathic peripheral neuropathy B12 deficiency PO positive Lumbosacral radiculopathy at S1 Neurogenic pain- Primary Lumbosacral radiculopathy at S1 PO positive Carpal tunnel syndrome, bilateral Carpal tunnel [...] hereditary and idiopathic peripheral neuropathy B12 deficiency PO positive Lumbosacral radiculopathy at S1 Neurogenic pain- Primary Lumbosacral radiculopathy at S1 PO positive Carpal tunnel syndrome, bilateral Carpal tunnel [...] hereditary and idiopathic peripheral neuropathy B12 deficiency PO positive Lumbosacral radiculopathy at S1 Neurogenic pain- Primary Lumbosacral radiculopathy at S1 PO positive Carpal tunnel syndrome, bilateral Carpal tunnel [...] hereditary and idiopathic peripheral neuropathy B12 deficiency PO positive Lumbosacral radiculopathy at S1 Neurogenic pain- Primary Lumbosacral radiculopathy at S1 PO positive Carpal tunnel syndrome, bilateral Carpal tunnel [...] hereditary and idiopathic peripheral neuropathy B12 deficiency PO positive Lumbosacral radiculopathy at S1 Neurogenic pain- Primary Lumbosacral radiculopathy at S1 PO positive Carpal tunnel syndrome, bilateral Carpal tunnel [...] radiculopathy at L5 documented in this encounter [facility] HealthcareEvaluation note* Diagnosis Typical atrial flutter (Multi)- Primary Nonischemic cardiomyopathy (Multi) Other primary cardiomyopathies Hypertension, unspecified type Hypercholesteremia Pure hypercholesterolemia Obesity (BMI 30-39.9) Current smoker documented in this encounter [facility] Work Phone: Evaluation note* [...] hereditary and idiopathic peripheral neuropathy B12 deficiency PO positive Lumbosacral radiculopathy at S1 Neurogenic pain- Primary Lumbosacral radiculopathy at S1 PO positive Carpal tunnel syndrome, bilateral Carpal tunnel [...] unspecified laterality documented in this encounter [facility] HealthcareEvaluation note* [...] hereditary and idiopathic peripheral neuropathy B12 deficiency PO positive Lumbosacral radiculopathy at S1 Neurogenic pain- Primary Lumbosacral radiculopathy at S1 PO positive Carpal tunnel syndrome, bilateral Carpal tunnel [...] muscle B12 deficiency Guyon syndrome, unspecified laterality Encounter for gynecological examination Vaginal lesion Other specified noninflammatory disorder of vagina Encounter for gynecological examination without abnormal finding Encounter for screening for cervical cancer Breast cancer screening by mammogram documented in this encounter [facility]* [...] hereditary and idiopathic peripheral neuropathy B12 deficiency PO positive Lumbosacral radiculopathy at S1 Neurogenic pain- Primary Lumbosacral radiculopathy at S1 PO positive Carpal tunnel syndrome, bilateral Carpal tunnel [...] muscle B12 deficiency Guyon syndrome, unspecified laterality Encounter for gynecological examination Vaginal lesion Other specified noninflammatory disorder of vagina documented in this encounter [facility] and physical note Author Arleen Stephen [facility] December 09, 2021 11:38amNote Date/TimeAugust 2021 11:38[place], [place] [address] Hospitalist H&P Signed Patient: Taye Gay MR#: [id number] : 1955 Acct:[id number] Age/Sex: 66 / F Adm Date: 2 Loc: ER Room: Type: [facility] ER Attending Dr: Copies to: NON [...] 02/09/21] insulin lispro 100 unit/mL [facility] Insulin lispro) 1 sliding scaledose subcut USEASDIRECTD 02/09/21 [History Confirmed 02/09/21] lisinopril [...] % (Auto) 9.6 % (.) 12/09/21 08:50 [place] % (Auto) 9.1 % (.) 12/09/21 08:50 Eos % (Auto) 1.1 % (.) 12/09/21 08:50 Baso % (Auto) 0.4 % (.) 12/09/21 08:50 Neut # (Auto) 10.3 x10E3/uL (1.8-7.7) H 12/09/21 08:50 Lymph # (Auto) 1.2 x10E3/uL (1.00-4.8) 12/09/21 08:50 [place] # (Auto) 1.2 x10E3/uL (0.0-0.8) H 12/09/21 [...] pH 5.5 (5.0-9.0) 12/09/21 08:35 Ur Specific [place] 1.030 (1.001-1.030) 12/09/21 08:35 Urine Protein Negative [...] signed by Arleen Stephen MD> 12/09/21 1138 [facility] Work Phone: History and physical note Author Jluis Campos [facility] November 10, 2023 6:20amNote Date/TimeJuly 2023 6:11[place] [address] Hospitalist H&P Signed Patient: Taye Gay MR#: [id number] : 1955 Acct:[id number] Age/Sex: 67 / F Adm Date: 4 Loc: 4N Room: [address] [place] [address] Type: ADM IN Attending Dr: Jluis Campos DO Copies to: Sandra Keita, DO Jluis Campos, DO~ HPI DATE OF EXAMINATION: 11/10/23 CHIEF COMPLAINT: weakness HISTORY OF PRESENT ILLNESS: Miss Gay is a 67-year-old female with a past medical history of GERD, hypertension, hyperlipidemia, atrial fibrillation status post cardioversion, peripheral neuropathy, and vitamin B12 efficiencywho presents to hospital due to chief complaint of sudden onset extreme weakness at home leg shaking. The patient is present with her daughter, states that starting Saturday morning the patient beganexperiencing sudden onset weakness while ambulating with her [...] negative unless noted below or in HPI [facility] Medical History History of esophageal stricture [...] Father Heart disease [facility] of stroke [facility] Problem: Diagnosed with Stroke Cancer throat heart [...] pen injector (Ozempic) 1 mg subcut QWEEK 10/14/21 [History Confirmed 11/09/23] simvastatin 20 mg tablet [...] Confirmed 11/09/23] pen needle, diabetic [Sure-Fine Pen Dorothy] 06/12/23 [History Confirmed 11/09/23] omeprazole 20 mg [...] weaknesses were noted, patient unable to ambulate. Cefb-fx-yvlz test was normal. No tremors or ataxia with dolxql-fi-tkpq movements. Neuro: AOx3, CN II-VII intact. Moves [...] % (Auto) 26.0 % (.) 11/10/23 03:41 [place] % (Auto) 8.2 % (.) 11/10/23 03:41 Eos % (Auto) 3.7 % (.) 11/10/23 03:41 Baso % (Auto) 0.9 % (.) 11/10/23 03:41 Nucleat RBC Rel Count 0.1 /100 WBC (0-0.5) 11/10/23 03:41 Neut # (Auto) 5.2 x10E3/uL (1.8-7.7) 11/10/23 03:41 Lymph # (Auto) 2.2 x10E3/uL (1.00-4.8) 11/10/23 03:41 [place] # (Auto) 0.7 x10E3/uL (0.0-0.8) 11/10/23 03:41 [...] pH 6.0 (5.0-9.0) 11/10/23 05:02 Ur Specific [place] 1.007 (1.001-1.030) 11/10/23 05:02 Urine Protein Negative [...] starting Saturday morning, she is currently unable toambulate even with assistance of a walker secondary [...] signed by Jluis Campos DO> 11/10/23 0620 [facility] Work Phone: History and physical note Author Jori Hearn [facility]Note Date/TimeJanuary 2024 6:39[place] [id number] Hospitalist H&P Signed Patient: Taye Gay MR#: [id number] : 1955 Acct:[id number] Age/Sex: 68 / F Adm Date: 4 Loc: 3T Room: [address] [place] [address] Type: ADM IN Attending Dr: Jori Hearn [...] was sent at that time with preliminary PO 1:320 positive. Extensivereflexive antibody titers were sent [...] this. Will monitortelemetry and address as needed [facility] Medical History BMI 32.0-32.9,adult Abnormal thyroid [...] History Father [facility] disease [facility]: [facility] Cancer [...] (Stool Softener) 100 mg PO DAILY PRN swctglqxmfab27/14/24 [History Confirmed 04/28/24] multivitamin 1 tab PO DAILY 06/12/23 [History Confirmed 04/28/24] pen needle, diabetic [Sure-Fine Pen Dorothy] 06/12/23 [History Confirmed 04/28/24] metformin 500 mg [...] % (Auto) 24.6 % (.) 04/28/24 19:54 [place] % (Auto) 7.6 % (.) 04/28/24 19:54 Eos % (Auto) 2.7 % (.) 04/28/24 19:54 Baso % (Auto) 1.1 % (.) 04/28/24 19:54 Nucleat RBC Rel Count 0.2 /100 WBC (0-0.5) 04/28/24 19:54 Neut # (Auto) 6.5 x10E3/uL (1.8-7.7) 04/28/24 19:54 Lymph # (Auto) 2.5 x10E3/uL (1.00-4.8) 04/28/24 19:54 [place] # (Auto) 0.8 x10E3/uL (0.0-0.8) 04/28/24 19:54 [...] pH 5.5 (5.0-9.0) 04/28/24 22:02 Ur Specific [place] 1.038 (1.001-1.030) H 04/28/24 22:02 Urine Protein [...] signed by Jori Hearn DO> 04/29/24 0639 [facility] Work Phone: History and physical note Author Manjit Gleason [facility] NorthNote Date/TimeMay 2024 12:41[place] [address] Gastroenterology H&P Signed Patient: Taye Gay MR#: [id number] : 1955 Acct:[id number] Age/Sex: 68 / F Adm Date: 5 Loc: Room: Type: [facility] Attending Dr: Manjit Gleason MD [...] signed by Manjit Gleason MD> 09/10/24 1241 [facility] Work Phone: History general Narrative - Reported* Type Description Date Medical History HTN Medical HistoryDiabetesMedical HistoryObesityMedical HistoryHLPMedical History tonsillectomyMedical HistoryhysterectomyMedical HistoryCataracts removed BilateralMedical HistoryUpper eye liftSurgical HistorytonsillectomySurgical HistoryhysterectomySurgical Historycataracts, bilaterallySurgical Historyeye lid surgerySurgical Historyremoved cervix12/2018 [facility] Other History general Narrative - Reported* Type Description Date Medical History HTN Medical HistoryDiabetesMedical HistoryObesityMedical HistoryHLPMedical History tonsillectomyMedical HistoryhysterectomyMedical HistoryCataracts removed BilateralMedical HistoryUpper eye liftSurgical HistorytonsillectomySurgical HistoryhysterectomySurgical Historycataracts, bilaterallySurgical Historyeye lid surgerySurgical Historyremoved cervix12/2018Hospitalization HistorySee Above [facility] Other History general Narrative - Reported* Type Description Date Medical History HTN Medical HistoryDiabetesMedical HistoryObesityMedical HistoryHLPMedical History tonsillectomyMedical HistoryhysterectomyMedical HistoryCataracts removed BilateralMedical HistoryUpper eye liftSurgical HistorytonsillectomySurgical Historypartial hysterectomySurgical Historycataracts, bilaterallySurgical Historyeye lid surgery--bilateralSurgical Historyremoved cervix12/2018 Hospitalization HistorySee Above [facility] Other History general Narrative - Reported* Type Description Date Medical History HTN Medical HistoryDiabetesMedical HistoryObesityMedical HistoryHLPMedical History tonsillectomyMedical HistoryhysterectomyMedical HistoryCataracts removed BilateralMedical HistoryUpper eye liftSurgical HistorytonsillectomySurgical Historypartial hysterectomySurgical Historycataracts, bilaterallySurgical Historyeye lid surgery--bilateralSurgical Historyremoved cervix12/2018Surgical HistoryCholecystectomyurgical HistoryLeft foot and great toe surgery 12/29/2021Hospitalization HistorySee AboveHospitalization HistoryUTI and gallbladder removal11/2021 [facility] Other History general Narrative - Reported* Type Description Date Medical History HTN Medical HistoryDiabetesMedical HistoryObesityMedical HistoryHLPMedical History tonsillectomyMedical HistoryhysterectomyMedical HistoryCataracts removed BilateralMedical HistoryUpper eye liftSurgical HistorytonsillectomySurgical Historypartial hysterectomySurgical Historycataracts, bilaterallySurgical Historyeye lid surgery--bilateralSurgical Historyremoved cervix12/2018Surgical HistoryCholecystectomy12/12/21Surgical HistoryLeft foot and great toe surgery 12/29/2021Hospitalization HistorySee AboveHospitalization HistoryUTI and gallbladder removal11/2021 [facility]: [facility] Work Phone: [facility] Work Phone: [facility] Dis[facility] instructions[facility] Work Phone: Hospital Discharge instructionsAmbulatory Orders* Initiate [...] - Care to be managed by PCP [facility] Work Phone: Hospital Discharge instructions Additional Instructions [...] pharmacist or your primary care provider. Thank you.[facility] Work Phone: Hospital Discharge instructionsAmbulatory Orders* Referral to Pain Management Location: None Selected [facility] Work Phone: Progress note Author Arleen Stephen [facility] December 10, 2021 11:26amNote Date/TimeAugust 2021 11:26[place] [address] Hospitalist Progress Note Signed Patient: Taye Gay MR#: [id number] : 1955 Acct:[id number] Age/Sex: 66 / F Adm Date: 2 Loc: Room: [address] [place] [address] Type: ADM IN Attending Dr: Arleen Stephen [...] 1,000 Ml IV 12/09/22 11:29 75 mls/hr .[id number] Administration Ceftriaxone Sodium 1 gm in [...] show any sign of cholecystitis, ultrasound gallbladder doneas well, Patient on Rocephin Urine culture growing gram-negative bacilli Final cultures pending Gentle hydration Leukocytosis resolved Polycythemia secondary to history of tobacco abuse/hemoconcentration continue tomonitor CBC daily :Improved History of diabetes, patient on metformin Jardiance insulin and pioglitazone, hold onto metformin and Jardiance for now : Blood sugars been better controlled History of hypertension, patient on lisinopril 10, blood pressure on the borderline lower side, will gradually resume DVT prophylaxis Documented By: Arleen Stephen MD 12/10/211123 Signed By: <Electronically signed by Arleen Stephen MD> 12/10/21 112 [facility] Work Phone: Progress note Author Arleen Stephen [facility] December 11, 2021 1:33pmNote Date/TimeAugust 2021 1:30[place] [address] Hospitalist Progress Note Signed Patient: Taye Gay MR#: [id number] : 1955 Acct:[id number] Age/Sex: 66 / F Adm Date: 2 Loc: Room: [address] [place] [address] Type: ADM INOo Attending Dr: Arleen Stephen [...] today is day 3, had positive Alarcon signtoday, LFTs were normal, will consult general surgery,, [...] show any sign of cholecystitis, ultrasound gallbladder doneas well, Patient continues to complain of abdominal pain Will call general surgery Get labs today. Patient on Rocephin, urine culture E. coli sensitive to Rocephin Leukocytosis resolved, will get labs today Will DC fluids since patient has been tolerating p.o. well Polycythemia secondary to history of tobacco abuse/hemoconcentration continue tomonitor CBC daily :Improved History of diabetes, patient on metformin Jardiance insulin and pioglitazone, hold onto metformin and Jardiance for now : Blood sugars been better controlled History of hypertension, patient on lisinopril 10, blood pressure has been stable without lisinopril, continue to hold DVT prophylaxis Documented By: Arleen Stephen MD 12/11/21 1326 Signed By: <Electronically signed by Arleen Stephen MD> 12/11/21 1333 [facility] Work Phone: Progress note Author Walter Montgomery [facility] December 12, 2021 8:07amNote Date/TimeAugust 2021 8:07[place], [place] [address] General Surgery Progress Note Signed Patient: Taye Gay MR#: [id number] : 1955 Acct:[id number] Age/Sex: 66 / F Adm Date: 2 Loc: Room: [address] [place] [address] Type: ADM INOo Attending Dr: Arleen Stephen [...] (Admelog SoloStar U-100 Insulin lispro) 1 sliding scaledose subcut USEASDIRECTD 02/09/21 [History Confirmed 12/09/21] lisinopril [...] Tablet.) 81 mg PO DAILY [facility] Stop: 12/10/22 08:59 Last Admin: 12/11/21 08:00 [...] @ 100 mls/hr IV Q24H [facility] Last Infusion: 12/11/21 10:15 Dose: Infused Sodium Chloride (0.9% Sodium Chloride 1,000 Ml) 1,000 mls @ 100 mls/hr IV .[id number] Stop: 12/12/22 00:00 Last Admin: 12/12/21 00:10 Dose: 100 mls/hr Insulin Aspart (Insulin Aspart 300 Units/3 Ml Insuln.Pen) 0 units SUBCUT TID.WM.[facility]; Protocol Stop: 12/09/22 11:59 Last Admin: 12/11/21 21:21 Dose: 3 units Nortriptyline HCl (Nortriptyline 25 Mg Capsule) 50 mg PO BID [facility] Stop: 12/09/22 20:59 Last Admin: 12/11/21 21:20 Dose: 50 mg Omeprazole (Omeprazole 20 Mg Capsule.Dr) 20 mg PO DAILY [facility] Stop: 12/10/22 08:59 Last Admin: 12/11/21 08:00 Dose: 20 mg Ondansetron HCl (Ondansetron 4 Mg/2 Ml Vial) 4 mg IV-PUSH Q8H PRN PRN Reason: Nausea And Vomiting Stop: 12/09/22 11:18 Pioglitazone HCl (Pioglitazone 15 Mg Tablet) 15 mg PO DAILY [facility] Stop: 12/10/22 08:59 Last Admin: 12/11/21 08:00 [...] Capsule) 30 mg PO QHS [facility] Stop: 12/09/22 21:59 Last Admin: 12/11/21 21:20 [...] distress. Lungs are clear. Heart is regular raterhythm. Abdomen and left side is completely soft, [...] Neut % (Auto) 66.8, Lymph % (Auto) 21.0,[place] % (Auto) 9.2, Eos % (Auto) 2.6, Baso % (Auto) 0.4, Neut # (Auto) 4.1, Lymph # (Auto) 1.3, [place]# (Auto) 0.6, Eos # (Auto) 0.2, Baso # (Auto) 0.0, Nucleated RBC % (auto) 0.1 12/11/21 11:05: POC Glucose 195 12/11/21 06:58: POC Glucose 172 12/10/21 21:10: POC Glucose 249 12/10/21 16:18: POC Glucose 176 12/10/21 11:20: POC Glucose 268 12/10/21 06:50: PHA Creatinine Clear 75.03, Sodium 139, Potassium 4.0, Chloride 107, Carbon Kujpwbr91.2, BUN 8 L, Creatinine 0.86, Est GFR [...] <Electronically signed by DO Walter Montgomery> 12/12/21806 [facility] Work Phone: Progress note Author Arleen Stephen [facility] December 12, 2021 1:20pmNote Date/TimeAugust 2021 1:20[place] [address] Hospitalist Progress Note Signed Patient: Taye Gay MR#: [id number] : 1955 Acct:[id number] Age/Sex: 66 / F Adm Date: 2 Loc: Room: [address] [place] [address] Type: ADM INOo Attending Dr: Arleen Stephen [...] show any sign of cholecystitis, ultrasound gallbladder doneas well, Patient continues to complain of abdominal pain General surgery consulted, patient went for possible appendectomy and cholecystectomy today Patient on Rocephin, urine culture E. coli sensitive to Rocephin Leukocytosis resolved, Urology consulted for possible colovesical fistula, neurology will evaluate further if patient continues to have symptoms if patient does improve after the surgical intervention, patient to follow-upwith urology as outpatient, De La Garza's cath was placed yes Polycythemia secondary to history of tobacco abuse/hemoconcentration continue tomonitor CBC daily :Improved History of diabetes, patient on metformin Jardiance insulin and pioglitazone, hold onto metformin and Jardiance for now : Blood sugars been better controlled History of hypertension, patient on lisinopril 10, blood pressure has been stable without lisinopril, continue to hold DVT prophylaxis Documented By: Arleen Stephen MD 12/12/21 1319 Signed By: <Electronically signed by Arleen Stephen MD> 12/12/21 1320 [facility] Work Phone: Progress note Author Teresa Strong [facility] December 12, 2021 8:43pmNote Date/TimeAugust 2021 2:49[place] [address] Urology Progress Note Signed Patient: Taye Gay MR#: [id number] : 1955 Acct:[id number] Age/Sex: 66 / F Adm Date: 2 Loc: Room: [address] [place] [address] Type: ADM INOo Attending Dr: Arleen Stephen [...] hydronephrosis, stones or recent instrumentation. There was noinflammation around the bowels or appendix. Mild diverticulosis [...] or blood within urine. Does note increased urgencyand frequency the past month but otherwise denies [...] Sodium 136, Potassium 3.8, Chloride 103, Carbon Meecomr49.5, BUN 5 L, Creatinine 0.76, Est GFR ( Amer) > 60,Est GFR (Non-Af Amer) > 60, TotalBilirubin 0.7, Direct Bilirubin 0.2, Indirect Bilirubin 0.5, AST 22, Alkaline Phosphatase 92 12/12/21 07:47: PT 14.1 H, INR 1.3, APTT 30.0 12/12/21 07:47: Corrected WBC 7.2, Uncorrected WBC Count 7.2, RBC 4.40, Hgb 14.0, Hct 41.6, MCV 94.6, MCH 31.9, MCHC 33.7, RDW 12.9, Plt Count 160, MPV 9.4,Neut % (Auto) 72.7, Lymph % (Auto) 16.1, [place] % (Auto) 8.8, Eos % (Auto) 2.1, Baso % (Auto) 0.3, Neut # (Auto) 5.3, Lymph # (Auto) 1.2, [place] # (Auto) 0.6, Eos# (Auto) 0.2, Baso [...] Neut % (Auto) 66.8, Lymph % (Auto) 21.0,[place] % (Auto) 9.2, Eos % (Auto) 2.6, Baso % (Auto) 0.4, Neut # (Auto) 4.1, Lymph # (Auto) 1.3, [place]# (Auto) 0.6, Eos # (Auto) 0.2, Baso [...] there is concern for stool in urine orshe does not improve while inpt, will obtain [...] <Electronically signed by Teresa Strong MD> 12/12/212042 [facility] Work Phone: Progress note Author Walter Montgomery [facility] December 13, 2021 8:52amNote Date/TimeAugust 2021 8:[address] [address] General Surgery Progress Note Signed Patient: Taye Gay MR#: [id number] : 1955 Acct:[id number] Age/Sex: 66 / F Adm Date: 2 Loc: 3T Room: [address] [place] [address] Type: ADM INOo Attending Dr: Wilmer Vance [...] (Admelog SoloStar U-100 Insulin lispro) 1 sliding scaledose subcut USEASDIRECTD 02/09/21 [History Confirmed 12/09/21] lisinopril [...] Tablet.) 81 mg PO DAILY [facility] Stop: 12/10/22 08:59 Last Admin: 12/12/21 10:33 Dose: Not Given Atorvastatin Calcium (Atorvastatin 10 Mg Tablet) 10 mg PO DAILY [facility] Stop: 12/10/22 08:59 Last Admin: 12/12/21 10:33 Dose: Not Given Cyanocobalamin (Cyanocobalamin 1,000 Mcg Tablet) 1,000 mcg PO DAILY [facility] Stop: 12/13/22 08:59 Dextrose (Dextrose 50% In Water 25 Gm/50 Ml Syringe) 0 gm IV-PUSH PRN PRN PRN Reason: Hypoglycemia Stop: 12/09/22 11:18 Docusate Sodium (Docusate 100 Mg Capsule) 100 mg PO TID [facility] Stop: 12/12/22 21:59 Last Admin: 12/12/21 22:26 Dose: 100 mg Enoxaparin Sodium (Enoxaparin 40 Mg/0.4 Ml Syringe) 40 mg SUBCUT DAILY@10 [facility] Stop: 12/10/22 09:59 Last Admin: 12/12/21 10:33 [...] @ 100 mls/hr IV Q24H [facility] Last Admin: 12/12/21 11:57 Dose: 100 mls/hr Sodium Chloride (0.9% Sodium Chloride 1,000 Ml) 1,000 mls @ 100 mls/hr IV .[id number] Stop: 12/12/22 00:00 Last Infusion: 12/13/21 03:35 Dose: Infused Lactated Ringer's (Lactated Ringers) 1,000 mls @ 20 mls/hr IV .Q24H ONE Stop: 12/13/21 11:13 Last Infusion: 12/13/21 03:31 Dose: Infused Insulin Aspart (Insulin Aspart 300 Units/3 Ml Insuln.Pen) 0 units SUBCUT TID.WM.HS [facility]; Protocol Stop: 12/09/22 11:59 Last Admin: 12/13/21 08:07 Dose: 4 units Nortriptyline HCl (Nortriptyline 25 Mg Capsule) 50 mg PO BID [facility] Stop: 12/09/22 20:59 Last Admin: 12/12/21 22:27 Dose: 50 mg Omeprazole (Omeprazole 20 Mg Capsule.Dr) 20 mg PO DAILY [facility] Stop: 12/10/22 08:59 Last Admin: 12/12/21 10:33 Dose: Not Given Ondansetron HCl (Ondansetron 4 Mg/2 Ml Vial) 4 mg IV-PUSH Q6H PRN PRN Reason: Nausea And Vomiting Stop: 12/12/22 18:19 Pioglitazone HCl (Pioglitazone 15 Mg Tablet) 15 mg PO DAILY [facility] Stop: 12/10/22 08:59 Last Admin: 12/12/21 10:33 [...] distress. Lungs are clear. Heart is regular raterhythm. Abdomen is soft nontender nondistended. Incisions are [...] Sodium 137, Potassium 4.4, Chloride 105, Carbon Iwucfae42.6, BUN 12, Creatinine 0.75, Est GFR ( Amer) > 60, Est GFR (Non-Af Amer) > 60, TotalBilirubin 0.7, Direct Bilirubin 0.2, Indirect Bilirubin 0.5 12/13/21 05:58: Corrected WBC 9.4, Uncorrected WBC Count 9.4, RBC 4.41, Hgb 14.2, Hct 41.9, MCV 95.1, MCH 32.2, MCHC 33.9, RDW 12.9, Plt Count 178, MPV 9.3,Neut % (Auto) 90.4, Lymph % (Auto) 7.7, [place] % (Auto) 1.8, Eos % (Auto) 0.0, Baso % (Auto) 0.1, Neut # (Auto) 8.5 H, Lymph # (Auto) 0.7 L, [place]# (Auto) 0.2, Eos # (Auto) 0.0, Baso # (Auto) 0.0, Nucleated RBC % (auto) 0.0 12/12/21 20:42: POC Glucose 214 12/12/21 18:25: POC Glucose 178 12/12/21 15:26: POC Glucose 133 12/12/21 11:48: POC Glucose 167 12/12/21 07:47: PHA Creatinine Clear 83.77, Sodium 136, Potassium 3.8, Chloride 103, Carbon Vlmgwuq71.5, BUN 5 L, Creatinine 0.76, Est GFR ( Amer) > 60,Est GFR (Non-Af Amer) > 60, TotalBilirubin 0.7, Direct Bilirubin 0.2, Indirect Bilirubin 0.5, AST 22, Alkaline Phosphatase 92 12/12/21 07:47: PT 14.1 H, INR 1.3, APTT 30.0 12/12/21 07:47: Corrected WBC 7.2, Uncorrected WBC Count 7.2, RBC 4.40, Hgb 14.0, Hct 41.6, MCV 94.6, MCH 31.9, MCHC 33.7, RDW 12.9, Plt Count 160, MPV 9.4,Neut % (Auto) 72.7, Lymph % (Auto) 16.1, [place] % (Auto) 8.8, Eos % (Auto) 2.1, Baso % (Auto) 0.3, Neut # (Auto) 5.3, Lymph # (Auto) 1.2, [place] # (Auto) 0.6, Eos# (Auto) 0.2, Baso [...] Neut % (Auto) 66.8, Lymph % (Auto) 21.0,[place] % (Auto) 9.2, Eos % (Auto) 2.6, Baso % (Auto) 0.4, Neut # (Auto) 4.1, Lymph # (Auto) 1.3, [place]# (Auto) 0.6, Eos # (Auto) 0.2, Baso [...] signed by DO Walter Montgomery> 12/13/21 0852 [facility] Work Phone: Progress note Author Priscilla Lang [facility]Note Date/TimeJanuary 2024 11:02am [place] [address] Hospitalist Progress Note Signed Patient: Taye Gay MR#: [id number] : 1955 Acct:[id number] Age/Sex: 68 / F Adm Date: 4 Loc: Room: [address] [place] [address] Type: ADM IN Attending Dr: Priscilla Lang [...] was sent at that time with preliminary PO 1:320 positive. Extensivereflexive antibody titers were sent [...] of dementia, possible Alzheimer's dementia -continue home tmqjokbry20 mg twice daily and donepezil 20 mg [...] signed by Priscilla Lang MD> 04/29/24 1102 [facility] Work Phone: Progress note Author Lit Clark [facility] NorthNote Date/TimeJanuary 2024 12:30pm [place] [address] Neurology Progress Note Signed with Addenda Patient: Taye Gay MR#: [id number] : 1955 Acct:[id number] Age/Sex: 68 / F Adm Date: 4 Loc: 3T Room: [address] [place] [address] Type: ADM IN Attending Dr: Priscilla Lang MD Copies to: ~ ADDENDUM1 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 [...] signed by Lit Clark DO> 04/30/24 0708 [facility] Work Phone: Reason for referral (narrative)No reason for referral information availableKettering Health [facility] Work Phone: Reason for visit Narrative* Other Medical (Routine) - ClosedSpecialtyDiagnoses / ProceduresReferred By ContactReferred To Contact Neurology Diagnoses Numbness Leg pain, left Leg pain, right Bilateral leg weakness Procedures EMG AND NERVE CONDUCTION STUDY Oz Kincaid MD [address] [place] [id number] Phone: tel: fax: Oz Kincaid MD [address] [address] Phone: tel: fax: Referral IDStatusReasonStart DateExpiration DateVisits RequestedVisits [id number] Perform Procedure / [facility] [facility] N[facility]ative[facility] Other Medical (Routine) - Closed SpecialtyDiagnoses / ProceduresReferred By ContactReferred To ContactNeurology Diagnoses Arm weakness Numbness Arm pain, right Arm pain, left Procedures EMG AND NERVE CONDUCTION STUDY Oz Kincaid MD [address] [address] Phone: tel: fax: Oz Kincaid MD [address] [place] [phone] Phone: tel: fax: Referral IDStatusReasonStart DateExpiration DateVisits RequestedVisits [id number] Perform Procedure / [facility] Summary Purpose Family History No Family History Records Found Relationship Condition Age at Onset Recorded Date/T cinthya Not Specified Heart disease Unknown fatherMalignant neoplasm of throatUnknown Relationship Condition Age at Onset Recorded Date/T cinthya Not Specified Heart disease Unknown fatherMalignant neoplasm of throatUnknownfatherHeart diseaseUnknownHistory of strokeUnknownMalignant neoplasmUnknownDeceasedUnknownfamily memberDeceased UnknownNot SpecifiedDeceasedUnknownHeart diseaseUnknownHypertensionUnknown natural sonDiabetes mellitusUnknownsisterFamily history of mental disorder Unknown Relationship Condition Age at Onset Recorded Date/T cinthya father Heart disease Unknown History of strokeUnknownMalignant neoplasmUnknownDeceasedUnknownNot Specified DeceasedUnknownHeart diseaseUnknownHypertensionUnknownnatural sonDiabetes mellitusUnknownsisterDeceasedUnknownbrotherDeceasedUnknown Relationship Condition Age at Onset Recorded Date/T cinthya father Heart disease Unknown History of strokeUnknownMalignant neoplasmUnknownDeceasedUnknownmotherDeceased UnknownHeart diseaseUnknownHypertensionUnknownsonDiabetes mellitusUnknownsister DeceasedUnknownbrotherDeceasedUnknown Advance Directives No Advanced Directives Records Found Advance Directive Response Recorded Date/ Time Advance Directives No December 5:05pm Advance Directive Response Recorded Date/ Time Advance Directives No December 4:05pm Procedure Findings Note HNO ID: [id number] Author: Phi Joaquin Service: Gynecology Oncology Author Type: Physician Type: Brief Op Note Filed: 01/17/2019 7:15 PM Note Text: BRIEF OPERATIVE / PROCEDURE NOTE LOG ID: [id number] SURGERY/PROCEDURE DATE: 01/01/2019 INCISION/PROCEDURE START TIME: 8:11 AM INCISION CLOSE/PROCEDURE END TIME: 8:34 AM SURGEON(S)/PROCEDURALIST(S) AND 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 SUPERVISOR(S): Surgeon(s) and Role: * Theo Joaquin - [...] 01, 2019 TIME: 8:39 AM PAGER/CONTACT #: [id number] Chief Complaint and Reason for Visit Chief Complaint right side pain Low R abd painReason for VisitCholelithiasis Emphysematous cystitis Pyelonephritis Right lateral abdominal pain Chief Complaint g02.97 f17.210 Chief Complaint g02.97 f17.210 Z12.39 Chief Complaint E11.4 Z78.0 Chief Complaint 3 month follow up Reason for Visit BMI 28.0-28.9,adult [id number] Dietary counseling and surveillance Hyperlipidemia Hypertension Insulin long-term use Peripheral neuropathy Type 2 diabetes mellitus Vitamin B 12 deficiency Chief Complaint 3 month follow up PVD FOLLOW UPReason for VisitBMI 28.0-28.9,adult [id number] Dietary counseling and surveillance Hyperlipidemia Hypertension Insulin long-term use Peripheral neuropathy Type 2 diabetes mellitus Vitamin B 12 deficiency Dizziness Hypertension Primary insomnia Type 2 diabetes mellitus Chief Complaint 3 month follow up PVD FOLLOW UP g02.97 f17.210Reason for VisitBMI 28.0-28.9,adult [id number] Dietary counseling and surveillance Hyperlipidemia Hypertension Insulin long-term use Peripheral neuropathy Type 2 diabetes mellitus Vitamin B 12 deficiency Dizziness Hypertension Primary insomnia Type 2 diabetes mellitus PAD (peripheral artery disease) Chief Complaint 3 month follow up PVD FOLLOW UP g02.97 f17.210 E11.9 E78.5 E53.8Reason for VisitBMI 28.0-28.9,adult [id number] Dietary counseling and surveillance Hyperlipidemia Hypertension Insulin long-term use Peripheral neuropathy Type 2 diabetes mellitus Vitamin B 12 deficiency Dizziness Hypertension Primary insomnia Type 2 diabetes mellitus PAD (peripheral artery disease) Chief Complaint PVD FOLLOW UP g02.97 f17.210 E11.9 E78.5 E53.8 Amb Documentation brent on phone chest pains chest painsReason for VisitPAD (peripheral artery disease) BMI 28.0-28.9,adult [id number] Dietary counseling and surveillance Hyperlipidemia Hypertension Peripheral neuropathy Tachycardia Type 2 diabetes mellitus Vitamin B 12 deficiency Atrial flutter with rapid ventricular response Chest pain Hyperlipidemia Hypertension New onset atrial flutter Type 2 diabetes mellitus Chief Complaint PVD FOLLOW UP g02.97 f17.210 E11.9 E78.5 E53.8 Amb Documentation brent on phone chest pains chest pains Amb Documentation Hospital follow upReason for VisitPAD (peripheral artery disease) BMI 28.0-28.9,adult [id number] Dietary counseling and surveillance Hyperlipidemia Hypertension Peripheral [...] g72.9 g62.9 r79.89 g60.9 z11.3 e53.1 i70.91 d51.3Reason for VisitBMI 28.0-28.9,adult [id number] Dietary counseling and surveillance Hyperlipidemia Hypertension Peripheral [...] g62.9 r79.89 g60.9 z11.3 e53.1 i70.91 d51.3 aflutterReason for VisitBMI 28.0-28.9,adult [id number] Dietary counseling and surveillance Hyperlipidemia Hypertension Peripheral [...] z11.3 e53.1 i70.91 d51.3 aflutter Multiple Falls, ShakyReason for VisitBMI 28.0-28.9,adult [id number] Dietary counseling and surveillance Hyperlipidemia Hypertension Peripheral [...] z11.3 e53.1 i70.91 d51.3 aflutter Multiple Falls, ShakyReason for VisitBMI 28.0-28.9,adult [id number] Dietary counseling and surveillance Hyperlipidemia Hypertension Peripheral [...] Multiple Falls, Shaky Amb Documentation brent on phoneReason for VisitBMI 28.0-28.9,adult [id number] Dietary counseling and surveillance Hyperlipidemia Hypertension Peripheral [...] Vitamin B 12 deficiency Weakness BMI 28.0-28.9,adult [id number] Dietary counseling and surveillance Hyperlipidemia Hypertension Peripheral neuropathy Type 2 diabetes mellitus Vitamin B 12 deficiency Chief Complaint E11.9 E78.5 E53.8 Amb Documentation brent on phone chest pains chest pains Amb Documentation Hospital follow up g72.9 g62.9 r79.89 g60.9 z11.3 e53.1 i70.91 d51.3 aflutter Multiple [place], Shaky Amb Documentation brent on phone typical a flutterReason for VisitBMI 28.0-28.9,adult [id number] Dietary counseling and surveillance Hyperlipidemia Hypertension Peripheral [...] Weakness Abnormal thyroid blood test BMI 28.0-28.9,adult [id number] Dietary counseling and surveillance Hyperlipidemia Hypertension Peripheral neuropathy Type 2 diabetes mellitus Vitamin B 12 deficiency Chief Complaint E11.9 E78.5 E53.8 Amb Documentation brent on phone chest pains chest pains Amb Documentation Hospital follow up g72.9 g62.9 r79.89 g60.9 z11.3 e53.1 i70.91 d51.3 aflutter Multiple [place], Shaky Amb Documentation brent on phone typical a flutter typical a flutter [facility] follow upReason for VisitBMI 28.0-28.9,adult [id number] Dietary counseling and surveillance Hyperlipidemia Hypertension Peripheral [...] Weakness Abnormal thyroid blood test BMI 28.0-28.9,adult [id number] Dietary counseling and surveillance Hyperlipidemia Hypertension Peripheral neuropathy Type 2 diabetes mellitus Vitamin B 12 deficiency Hospital discharge follow-up Hypomagnesemia Chief Complaint E11.9 E78.5 E53.8 Amb Documentation brent on phone chest pains chest pains Amb Documentation Hospital follow up g72.9 g62.9 r79.89 g60.9 z11.3 e53.1 i70.91 d51.3 aflutter Multiple [place], Shaky Amb Documentation brent on phone typical a flutter typical a flutter [facility] follow up G62.9 G60.9 R79.89 Z11.3 E53.1 I70.31 D51.3Reason for VisitBMI 28.0-28.9,adult [id number] Dietary counseling and surveillance Hyperlipidemia Hypertension Peripheral [...] Weakness Abnormal thyroid blood test BMI 28.0-28.9,adult [id number] Dietary counseling and surveillance Hyperlipidemia Hypertension Peripheral neuropathy Type 2 diabetes mellitus Vitamin B 12 deficiency Hospital discharge follow-up Hypomagnesemia Chief Complaint E11.9 E78.5 E53.8 Amb Documentation brent on phone chest pains chest pains Amb Documentation Hospital follow up g72.9 g62.9 r79.89 g60.9 z11.3 e53.1 i70.91 d51.3 aflutter [place], [place]aky Amb Documentation brent on phone typical a flutter typical a flutter [facility] follow up G62.9 G60.9 R79.89 Z11.3 E53.1 I70.31 D51.3 g62.9 r79.89 g60.9 z11.3 e53.1 d51.3Reason for VisitBMI 28.0-28.9,adult [id number] Dietary counseling and surveillance Hyperlipidemia Hypertension Peripheral [...] Weakness Abnormal thyroid blood test BMI 28.0-28.9,adult [id number] Dietary counseling and surveillance Hyperlipidemia Hypertension Peripheral neuropathy Type 2 diabetes mellitus Vitamin B 12 deficiency Hospital discharge follow-up Hypomagnesemia Chief Complaint g72.9 g62.9 r79.89 g 60.9 z11.3 e53.1 i70.91 d51.3 aflutter [place], Shaky Amb Documentation brent on phone typical a flutter typical a flutter [facility] follow up G62.9 G60.9 R79.89 Z11.3 E53.1 I70.31 D51.3 g62.9 r79.89 g60.9 z11.3 e53.1 d51.3 M54.17Reason for VisitAmbulatory dysfunction Hypomagnesemia Hypothyroid Type 2 diabetes mellitus with hyperglycemia Vitamin B 12 deficiency Weakness Abnormal thyroid blood test BMI 28.0-28.9,adult [id number] Dietary counseling and surveillance Hyperlipidemia Hypertension Peripheral neuropathy Type 2 diabetes mellitus Vitamin B 12 deficiency Hospital discharge follow-up Hypomagnesemia Chief Complaint g72.9 g62.9 r79.89 g 60.9 z11.3 e53.1 i70.91 d51.3 aflutter [place], Shaky Amb Documentation brent on phone typical a flutter typical a flutter [facility] follow up G62.9 G60.9 R79.89 Z11.3 E53.1 I70.31 D51.3 g62.9 r79.89 g60.9 z11.3 e53.1 d51.3 M54.17 R60.0 M79.671 r/o dvtReason for VisitAmbulatory dysfunction Hypomagnesemia Hypothyroid Type 2 diabetes mellitus with hyperglycemia Vitamin B 12 deficiency Weakness Abnormal thyroid blood test BMI 28.0-28.9,adult [id number] Dietary counseling and surveillance Hyperlipidemia Hypertension Peripheral neuropathy Type 2 diabetes mellitus Vitamin B 12 deficiency Hospital discharge follow-up Hypomagnesemia Chief Complaint g72.9 g62.9 r79.89 g 60.9 z11.3 e53.1 i70.91 d51.3 aflutter [place], Shaky Amb Documentation brent on phone typical a flutter typical a flutter [facility] follow up G62.9 G60.9 R79.89 Z11.3 E53.1 I70.31 D51.3 g62.9 r79.89 g60.9 z11.3 e53.1 d51.3 M54.17 R60.0 M79.671 r/o dvt L97.511 L03.115 lumbosacral radiculopathy at o4Ockcfe for VisitAmbulatory dysfunction Hypomagnesemia Hypothyroid Type 2 diabetes mellitus with hyperglycemia Vitamin B 12 deficiency Weakness Abnormal thyroid blood test BMI 28.0-28.9,adult [id number] Dietary counseling and surveillance Hyperlipidemia Hypertension Peripheral neuropathy Type 2 diabetes mellitus Vitamin B 12 deficiency Hospital discharge follow-up Hypomagnesemia Chief Complaint aflutter Multiple [place], Shaky Amb Documentation brent on phone typical a flutter typical a flutter [facility] follow up G62.9 G60.9 R79.89 Z11.3 E53.1 I70.31 D51.3 g62.9 r79.89 g60.9 z11.3 e53.1 d51.3 M54.17 R60.0 M79.671 r/o dvt L97.511 L03.115 lumbosacral radiculopathy at s1 8 Month F/UReason for VisitAmbulatory dysfunction Hypomagnesemia Hypothyroid Type 2 diabetes mellitus with hyperglycemia Vitamin B 12 deficiency Weakness Abnormal thyroid blood test BMI 28.0-28.9,adult [id number] Dietary counseling and surveillance Hyperlipidemia Hypertension Peripheral [...] 11:14am Vitamin B 12 deficiency April 28, 11:14am TIA (transient ischemic attack) April 28, 2024 10:38pm Reason for Visit Admit Date High granulocyte count April 14 9:30am Secondary polycythemia April 14 9:30am BMI 32.0-32.9,adult April 28, 2024 11:14am Chronic kidney disease (CKD) stage G2/A2, mildly decreased glomerular filtr April 28, 2024 11:14am Dietary counseling and surveillance [facility] 2023 11:14am Hyperlipidemia April 28, 2024 11:14am Hypertension April 28, 2024 11:14am Peripheral neuropathy April 28 11:14am Type 2 diabetes mellitus April 28, 2024 11:14am Vitamin B 12 deficiency April 28 11:14am Atrial fibrillation April 28, 2024 10:38pm Generalized weakness April 28, 2024 10:38pm Insulin dependent diabetes mellitus [facility] 2023 10:38pm TIA (transient ischemic attack) April 28, 2024 10:38pm Chief Complaint Admit Date Screening, Dysphagia February 14, 2024 12:30pm NEW elevated WBC April 14, 2024 9:30am irregular heart beat, dizziness, weaknes s April 27, 2024 2:18pm Follow Up 2 Weeks April 28, 2024 9:53am brent on phone April 28, 2024 11:14am Weakness April 28, 2024 10:38pm [facility] FOLLOW UP May 07 1:02pm Reason for Visit Admit Date High granulocyte count April 14 9:30am Secondary polycythemia April 14 9:30am High granulocyte count April 28 9:53am Secondary polycythemia April 28 9:53am BMI 32.0-32.9,adult April 28, 2024 11:14am Chronic kidney disease (CKD) stage G2/A2, mildly decreased glomerular filtr April 28, 2024 11:14am Dietary counseling and surveillance [facility] 2023 11:14am Hyperlipidemia April 28, 2024 11:14am Hypertension April 28, 2024 11:14am Peripheral neuropathy April 28 11:14am Type 2 diabetes mellitus April 28, 2024 11:14am Vitamin B 12 deficiency April 28 11:14am Atrial fibrillation April 28, 2024 10:38pm Generalized weakness April 28, 2024 10:38pm Insulin dependent diabetes mellitus [facility] 2023 10:38pm TIA (transient ischemic attack) April 28, 2024 10:38pm Cigarette nicotine dependence April 1:02pm Chief Complaint Admit Date NEW elevated WBC April 14, 2024 9:30am irregular heart beat, dizziness, weaknes s April 27, 2024 2:18pm Follow Up 2 Weeks April 28, 2024 9:53am brent on phone April 28, 2024 11:14am Weakness April 28, 2024 10:38pm [facility] FOLLOW UP May 07 1:02pm G45.9 [...] 2024 11:14am Dietary counseling and surveillance [facility] 2023 11:14am Hyperlipidemia April 28, 2024 11:14am Hypertension April 28, 2024 11:14am Peripheral neuropathy April 28 11:14am Type 2 diabetes mellitus April 28, 2024 11:14am Vitamin B 12 deficiency April 28, 024 11:14am Atrial fibrillation April 28, 2024 10:38pm Generalized weakness April 28, 2024 10:38pm Insulin dependent diabetes mellitus [facility] 2023 10:38pm TIA (transient ischemic [...] 2024 11:14am Weakness April 28, 2024 10:38pm [facility] FOLLOW UP May 07 1:02pm G45.9 [...] 2024 11:14am Weakness April 28, 2024 10:38pm [facility] FOLLOW UP May 07 1:02pm G45.9 [...] 2024 11:14am Weakness April 28, 2024 10:38pm [facility] FOLLOW UP May 07 1:02pm G45.9 [...] 2024 10:38pm Insulin dependent diabetes mellitus [facility] 2023 10:38pm TIA (transient ischemic [...] 2024 11:14am Dietary counseling and surveillance [facility] 2023 11:14am Hyperlipidemia April 28, 2024 11:14am Hypertension April 28, 2024 11:14am Peripheral neuropathy April 28 11:14am Type 2 diabetes mellitus April 28, 2024 11:14am Vitamin B 12 deficiency April 28 11:14am Atrial fibrillation April 28, 2024 10:38pm Generalized weakness April 28, 2024 10:38pm Insulin dependent diabetes mellitus [facility] 2023 10:38pm TIA (transient ischemic [...] 1:46pm Screening for lung cancer December 15 2 025 1:46pm Screening for osteoporosis December [...] 1:46pm Screening for lung cancer December 15 2 025 1:46pm Screening for osteoporosis December 15, 2024 1:46pm Wound of foot December 15, 2024 1: 46pm BMI 32.0-32.9,adult January 05, 2025 1:23pm Dietary counseling and surveillance Dec emb2024 1:23pm Hyperlipidemia January 05, 2025 1:23pm Hypertension January 05, 2025 1:23pm Peripheral neuropathy January 05 1:23pm Type 2 diabetes mellitus January 05, 2025 1:23pm Vitamin B 12 deficiency January 05, 2 025 1:23pm Chief Complaint Admit Date L97.512 [...] 2025 1:23pm Dietary counseling and surveillance Sept 2024 1:23pm Hyperlipidemia January 05, 2025 1:23pm Hypertension January 05, 2025 1:23pm Peripheral neuropathy January 05 1:23pm Type 2 diabetes mellitus January 05, 2025 1:23pm Vitamin B 12 deficiency January 05, 2 025 1:23pm Current every day smoker January 12, 2025 2:19pm Depression January 12, 2025 2:19pm Lesion of spleen January 12, 2025 2:19pm Chief Complaint Admit Date L97.512 November 16, 2024 4:48 pm establish December 15, 2024 1: 46pm Unspecified sleep apnea December 24 7:39pm APNEA December 31, 2024 12:00am 4 week follow up January 12, 2025 2:19pm F17.210 F17.200 Z12.2 February 02, 2025 12:06pm Reason for Referral SpecialtyDiagnoses / ProceduresReferred By ContactReferred To Contact Diagnoses Typical atrial flutter (Multi) Procedures ECG 12 Lead Jonas Ch MD [address] [place] [address] 2, [address] [address] Referral IDStatusReasonStart DateExpiration DateVisits RequestedVisits [id number]/17/20247/[id number] / Procedures Referred By ContactReferred To Contact Diagnoses Typical atrial flutter (Multi) Procedures Complete Pulmonary Function Test (Spirometry/DLCO/Lung Volumes) Jonas Ch MD [facility] [facility] 2, [address] [address] Referral IDStatusReasonStart DateExpiration DateVisits RequestedVisits [id number] [id number] / ProceduresReferred By ContactReferred To ContactRadiology Diagnoses Typical atrial flutter (Multi) Procedures XR chest 2 views Jonas Ch MD [address] [place] [address] [address], [address] [address] Referral IDStatusReasonStnewark DateExpiration DateVisits RequestedVisits [id number] Perform Procedure [id number] / ProceduresReferred By ContactReferred To ContactCardiology Diagnoses Nonischemic cardiomyopathy (Multi) Procedures Follow Up In Cardiology Jonas Ch MD [facility] [facility] 2, [address] [address] Roland Faust MD [facility] [facility] 2, [address] [address] Referral IDStatusReasonStnewark DateExpiration DateVisits RequestedVisits [id number]/17/20247/17/576913SapvcowmeKpxwqtduj / Procedures Referred By ContactReferred To ContactCardiology Diagnoses Typical atrial flutter (Multi) Procedures Cardioversion External Jonas Ch MD [facility] [facility] [address], [address] [place] [address] Referral IDStatusReasonSteinhatchee DateExpiration DateVisits RequestedVisits [id number] [id number] / ProceduresReferred By ContactReferred To ContactCardiology Diagnoses Typical atrial flutter (Multi) Procedures Follow Up In Cardiology Jonas Ch MD [facility] [facility] 2, [address] [place] [address] Jonas Ch MD [facility] [facility] 2, [address] [place] [address] Ref[facility] DateExpiration DateVisits RequestedVisits [id number]/10/20246/10/202511 Reason LEFT FOOT INJURY Diagnosis 1 Type 2 diabetes ye itus with hyperglycemia (E11.65) Diagnosis 2 Injury of foot, left (S99.922A) Referral Organization [facility] Referring Provider First Name Angelique Referring Provider Last Name Yvonne Referring Provider Specialty Nurse Pract itioner Referred Organization [facility] Referred Provider Karl Fritz Referred Address ,[place], [place],[address] Referred Provider Specialty Podiatry - S urgical Chiropody Referral Priority Routine Referral Appointment Date 2023-01-09 General Notes Emerald Doshi 12/28 03:26:20 PM >SCHEDULED FOR 01/09/23 AT 10:15AM. PATIENT INFORMED. Additional Source Comments INFORMATION SOURCE (unrecogn ized section and content) DATE CREATED AUTHOR 10/21/2017 [facility] DATE CREATED AUTHOR AUTHOR'S ORGANIZ ATION 10/22/2017 [facility] DATE CREATED AUTHOR AUTHOR'S ORGANIZ ATION 02/16/2019 [facility] DATE CREATED AUTHOR AUTHOR'S ORGANIZ ATION 02/02/2022 [facility] DATE CREATED AUTHOR AUTHOR'S ORGANIZ ATION 11/16/2024 [facility] DATE CREATED AUTHOR AUTHOR'S ORGANIZ ATION 01/01/2025 [facility] DATE CREATED AUTHOR AUTHOR'S ORGANIZ ATION 02/08/2025 [facility] DATE CREATED AUTHOR AUTHOR'S ORGANIZ ATION 02/11/2025 [facility] DATE CREATED AUTHOR AUTHOR'S ORGANIZ ATION 02/20/2025 [facility] REASON FOR VISIT (unrecogniz ed section and content) ReasonCommentsHospital [facility] 09/14/23ReasonCommentsPeripheral Neuropathy ReasonCommentsBlood Pressure CheckWith ekgSpecialtyDiagnoses / Procedures Referred By ContactReferred To ContactCardiology Diagnoses Hypertension, unspecified type Procedures Follow Up In Cardiology Roland Faust MD [address] [place] [address] 2, [place] [address] Phone: tel: fax: Roland Faust MD [address] [place] [address] 2, [place] [phone] Phone: tel: fax: Referral IDStatusReasonStart DateExpiration DateVisits RequestedVisits [id number]/11/202411/11/253775AmlhsdFlmuggymTrnjmo-qcZFZ follow upSpecialtyDiagnoses / ProceduresReferred By ContactReferred To Contact Cardiology Diagnoses Typical atrial flutter (Multi) Procedures Follow Up In Cardiology Jonas Ch MD [address] [place] [address] 2, [address] [address] Jonas Ch MD [address] [place] [address] 2, [address] [address] Referral IDStatusReasonSteinhatchee DateExpiration DateVisits RequestedVisits [id number]/10/20246/10/[id number] decline ReasonCommentsFollow-upMedication change, Amio d/cSpecialtyDiagnoses / ProceduresReferred By ContactReferred To ContactCardiology Diagnoses Typical atrial flutter (Multi) Procedures Follow Up In Cardiology Roland Faust MD [address] [place] [address] 2, [place] [phone] Roland Faust MD [address] [place] [address] 2, [place] [phone] Referral IDStatusReasonStart DateExpiration DateVisits RequestedVisits [id number]/1/20248/136581VlfzmnxuwUwfljwcse / Procedures Referred By ContactReferred To ContactNeurology Diagnoses Carpal tunnel syndrome, bilateral upper limbs Procedures MO INJECTION THERAPEUTIC CARPAL TUNNEL MO KETOROLAC TROMETHAMINE INJ 1 CC STERILE SYRINGE&NEEDLE Oz Kincaid MD [address] [place] [address] Oz Kincaid MD [address] [place] [address] Referral [facility]Status[facility] DateExpiration DateVisits RequestedVisits [id number] Perform Procedure /[id number]-rh2 month with EKG. Pt denies c/o at this time.SpecialtyDiagnoses / ProceduresReferred By ContactReferred To Contact Cardiology Diagnoses Nonischemic cardiomyopathy (Multi) Procedures Follow Up In Cardiology Jonas Ch MD Traboulssi, Mourhaf, MD [address] [place] [address] [address], [address] [address] Phone: tel: fax: Referral IDStatusReasonStart DateExpiration DateVisits RequestedVisits [id number] Review/[id number]dris declineReasonCommentsMed RefillReasonCommentsFollow-up6 month, nonischemic cardiomyopathySpecialtyDiagnoses / ProceduresReferred By ContactReferred To ContactCardiology Diagnoses Nonischemic cardiomyopathy (Multi) Procedures Follow Up In Cardiology Roland Faust MD [facility] 2, [address] [place] [address] Phone: tel: fax: Referral IDStatusReasonStart DateExpiration DateVisits RequestedVisits [id number]/28/20252/28/302588UgyqqkRaitzsjeXyjendinvsh Exam Patient present for New patient yearly visit with problems. Patient was last seen 10/12/2021 for a colpo due to LSIL PAPs. Last PAP: 09/07/2021; LSIL LMP: PMPReasonCommentsFollow-up Care Teams (unrecognized sec tion and content) Team Status: Active Member Role Status Dates Sandra Keita DO Primary Care Provider Active Team Status: Inactive Member Role Status Dates Sandra Keita DO Primary Care Provider Active Start: June 26, 2024 End: June 26, 2024Celine Thomas ProviderActiveStart: June 26, 2024 End: June 26, 2024Angelique Russell APRNOt ProviderActiveStart: June 26, 2024 End: June 26, 2024 Team Status: Active Member Role Status Dates Sandra Keita DO Primary Care Provider Active Start: June 26, 2024 Nataliya Jane , APRNAttenderic ProviderActiveStart: June 26, 2024 Oz Kincaid , MDReferring ProviderActiveStart: June 26, 2024 Team Status: Inactive Member Role Status Dates Deneen Frost PA-C Attending Provider Active Start: July 06, 2024 End: July 06, 2024 Team Status: Inactive Member Role Status Dates Sandra Keita DO Primary Care Provider Active Start: July 22, 2024 End: July 22, 2024Latricia Jacobs NP-CAttending ProviderActiveStart: July 22, 2024 End: July 22, 2024 Team Status: Inactive Member Role Status Dates Sandra Keita DO Primary Care Provider Active Start: August 20, 2024 End: August 20, 2024Tondra Estephania Russell APRNAtjoselito ProviderActiveStart: August 20, 2024 End: August 20, 2024 Team Status: Inactive Member Role Status Dates Sandra Keita , Primary Care Provide r, Attending Provider Active Start: August 25, 2024 End: August 25, 2024 Team Status: Inactive Member Role Status Dates Sandra Keita , Primary Care Provider Active Start: September 07, 2024 End: September 07, 2024Edgar Eden DOAttending ProviderActiveStart: September 07, 2024 End: September 07, 2024 Team Status: Active Member Role Status Dates Sandra Keita DO Primary Care Provider Active Start: June 04, 2024 Adan Lopez DOAttending ProviderActiveStart: June 04, 2024 Team Status: Inactive Member Role Status Dates Sandra Keita DO Primary Care Provider Active Start: June 12, 2023 End: June 12, 2023Angelique Russell , ASANAttenderic ProviderActiveStart: June 12, 2023 End: June 12, 2023 Team Status: Active Member Role Status Dates Jonas Yoder DO Primary Care Provider Actemi Fine , MDActiveCaitlin L Rahat , PA-CActiveTondra Estephania Russell , BOX BENDER Attending ProviderActive Team Status: Inactive Member Role Status Dates Sandra Keita DO Primary Care Provider, Attending Franchesca hartley Active Team Status: Inactive Member Role Status Dates Tray Randle , Emergency Provider Active Roger Kay ProviderActiveWalter Montgomery DOOther ProviderActiveTeresa Strong MDOther ProviderActiveWilmer Vance MDAttending ProviderActive Rose Lynnnorth [facility] centerkarlos Care ProviderActive Team Status: Inactive Member Role Status Dates PHYSICIAN NO FAMILY Primary Care Provider Active Chris Bentley ProviderActive Team Status: Active Member Role Status Dates PHYSICIAN NO FAMILY Primary Care Provider Active Team Status: Inactive Member Role Status Dates Sandra Keita DO Primary Care Provide r, Attending Provider Active Start: June 19, 2023 End: June 19, 2023 Team Status: Inactive Member Role Status Dates Sandra Keita , DO Primary Care Provider Active Start: July 17, 2023 End: July 17, 2023Celine Pina ProviderActiveStart: July 17, 2023 End: July 17, 2023 Team Status: Inactive Member Role Status Dates Sandra Keita , DO Primary Care Provide r, Attending Provider Active Start: July 25, 2023 End: July 25, 2023 Team Status: Inactive Member Role Status Dates Sandra Keita , DO Primary Care Provider Active Start: September 05, 2023 End: September 05, 2023Tim Guerrero ProviderActiveStart: September 05, 2023 End: September 05, 2023 Team Status: Active Member Role Status Dates Sandra Keita DO Primary Care Provider Active Start: September 09, 2023 Tim Cunningham ProviderActiveStart: September 09, 2023 Team Status: Inactive Member Role Status Dates Sandra Keita DO Primary Care Provider Active Start: September 12, 2023 End: September 12, 2023Angelique Russell APRNAtjoselito ProviderActiveStart: September 12, 2023 End: September 12, 2023 Team Status: Inactive Member Role Status Dates Sandra Keita , DO Primary Care Provider Active Start: September 13, 2023 End: September 14, 2023Chris Burnham ProviderActiveStart: September 13, 2023 End: September 14, 2023Roger Kraft Provider, Attending ProviderActive Start: September 13, 2023 End: September 14, 2023Marli Paz RNOther ProviderActiveStart: September 13, 2023 End: September 14, 2023Baltazar San ProviderActiveStart: September 13, 2023 End: September 14, 2023Ric Lamar MDOther ProviderActiveStart: September 13, 2023 End: September 14, 2023Jonas Ch MDOther ProviderActiveStart: September 13, 2023 End: September 14, 2023Danuta Thomas ProviderActiveStart: September 13, 2023 End: September 13dimple Barbosa MDOther ProviderActiveStart: September 13, 2023 End: September 13Jerrica Sarah ProviderActiveStart: September 13, 2023 End: September 14, 2023Stephanie Stoll MDOther ProviderActiveStart: September 13, 2023 End: September 14, 2023Jann Kaplan MDOther ProviderActiveStart: September 13, 2023 End: September 14, 2023Cara Tenorio MDOther ProviderActiveStart: September 13, 2023 End: September 13DAVID BrownP-BCOther ProviderActiveStart: September 13, 2023 End: September 14, 2023Ashley Cheatham MDOther ProviderActiveStart: September 13, 2023 End: September 14, 2023 Team Status: Active Member Role Status Dates Sandra Keita DO Primary Care Provider Active Start: September 14, 2023 Edgar Valenzuela DOEmedesi ProviderActiveStart: September 14, 2023 Elva Florian , MDAdmit Provider, Other ProviderActiveStart: September 14, 2023 Marli Paz RNOther ProviderActiveStart: September 14, 2023 Elly Yoo DOOther ProviderActiveStart: September 14, 2023 Ric Lamar MDOther ProviderActiveStart: September 14, 2023 Jonas Ch MDOther ProviderActiveStart: September 14, 2023 Roland Faust MDOther ProviderActiveStart: September 14, 2023 Manjit Barbosa MDOther ProviderActiveStart: September 14, 2023 Jerrica Evans ProviderActiveStart: September 14, 2023 Stephanie Stoll MDOther ProviderActiveStart: September 14, 2023 Jann Kaplan MDOther ProviderActiveStart: September 14, 2023 Cara Tenorio MDOther ProviderActiveStart: September 14, 2023 Elizabeth Parra CLINICAL REVIEW SPECIALIST-BCOther ProviderActiveStart: September 14, 2023 Ashley Cheatham MDOther ProviderActiveStart: September 14, 2023 Celine Peres ProviderActiveStart: September 14, 2023 Team Status: Active Member Role Status Dates Sandra Keita DO Primary Care Provider Active Start: September 16, 2023 Loren Denise LPNAttenderic ProviderActiveStart: September 16, 2023 Team Status: Inactive Member Role Status Dates Sandra Keita DO Primary Care Provider Active Start: September 17, 2023 End: September 16manuel Dago Rita APREwelina ProviderActiveStart: September 17, 2023 End: September 17, 2023Team MemberRelationshipSpecialtyStart DateEnd Date Sandra Keita DO [address] [place] [address] PCP - [facility] Medicine09/25/23 Team Status: Active Member Role Status Dates Sandra Keita DO Primary Care Provider Active Start: September 14, 2023 End: September 14, 2023Chris Burnham ProviderActiveStart: September 14, 2023 End: September 14, 2023Elva Florian MDAdmit Provider, Other ProviderActiveStart: September 14, 2023 End: September 14, 2023Marli Paz RNOther ProviderActiveStart: September 14, 2023 End: September 14, 2023W Tuan Yoo DOOther ProviderActiveStart: September 14, 2023 End: September 14, 2023Ric Lamar MDOther ProviderActiveStart: September 14, 2023 End: September 14, 2023Jonas Ch MDOther ProviderActiveStart: September 14, 2023 End: September 14, 2023Roland Faust MDOther ProviderActiveStart: September 14, 2023 End: September 13dimple Barbosa MDOther ProviderActiveStart: September 14, 2023 End: September 13ana Fritz APRNOther ProviderActiveStart: September 14, 2023 End: September 14, 2023Stephanie Stoll MDOther ProviderActiveStart: September 14, 2023 End: September 14, 2023Jann Kaplan MDOther ProviderActiveStart: September 14, 2023 End: September 14, 2023Cara Tenorio MDOther ProviderActiveStart: September 14, 2023 End: September 13DAVID BrownP-BCOther ProviderActiveStart: September 14, 2023 End: September 14, 2023Ashley Cheatham MDOther ProviderActiveStart: September 14, 2023 End: September 14, 2023Gedino Gilliam MDAttending ProviderActiveStart: September 14, 2023 End: September 14, 2023 Team Status: Inactive Member Role Status Dates Sandra Keita DO Primary Care Provider Active Start: October 30, 2023 End: October 30, 2023Oz Kincaid MDAttending ProviderActiveStart: October 30, 2023 End: October 30, 2023 Team Status: Inactive Member Role Status Dates Sandra Keita DO Primary Care Provider Active Start: November 05, 2023 End: November 05, 2023Celine Agarwal Provider, Referring ProviderActiveStart: November 05, 2023 End: November 05, 2023 Team Status: Active Member Role Status Dates Sandra Keita DO Primary Care Provider Active Start: November 10, 2023 Chris Bentley ProviderActiveStart: November 10, 2023 Aguilar Royal Provider, Attending ProviderActiveStart: November 10, 2023 Team Status: Inactive Member Role Status Dates Sandra Keita DO Primary Care Provider Active Start: November 10, 2023 End: November 11Chris Cannon ProviderActiveStart: November 10, 2023 End: November 12, 2023Aguilar Royal ProviderActiveStart: November 10, 2023 End: November 12, 2023Katherine SciarappaOther ProviderActiveStart: November 10, 2023 End: November 12, 2023Cash Aponte , PhDOther ProviderActiveStart: November 10, 2023 End: November 12, 2023Jelly Tuttle DOOther ProviderActiveStart: November 10, 2023 End: November 12, 2023John Murillo MDOther ProviderActiveStart: November 10, 2023 End: November 11madisyn Clark DOOther ProviderActiveStart: November 10, 2023 End: November 12, 2023Dayana Dodge , ANP-BCOther ProviderActiveStart: November 10, 2023 End: November 11rebecca Isidro DOOther ProviderActiveStart: November 10, 2023 End: November 11johnathon Calvo , APRNOther ProviderActiveStart: November 10, 2023 End: November 11ko Medina CHIEF [employer] DEPARTMENT-COther ProviderActiveStart: November 10, 2023 End: November 12, 2023Jeanine Ibrahim APRN-FNP-COther ProviderActiveStart: November 10, 2023 End: November 12, 2023Chaka Frye MDAttending ProviderActiveStart: November 10, 2023 End: November 12, 2023 Team Status: Active Member Role Status Dates Sandra Keita DO Primary Care Provider Active Start: November 13, 2023 Diya Carvajal ProviderActiveStart: November 13, 2023 Team Status: Inactive Member Role Status Dates Sandra Keita DO Primary Care Provider Active Start: November 14, 2023 End: November 14, 2023Angelique Russell , APRNAttending ProviderActiveStart: November 14, 2023 End: November 14, 2023 Team Status: Inactive Member Role Status Dates Sandra Keita DO Primary Care Provider Active Start: November 15, 2023 End: November 15, 2023Jonas Ch , MDAttending ProviderActiveStart: November 15, 2023 End: November 15, 2023 Team Status: Active Member Role Status Dates Sandra Keita DO Primary Care Provider Active Start: November 16, 2023 Danuta Agarwal ProviderActiveStart: November 16, 2023 Lit Sterling MDAttending ProviderActiveStart: November 16, 2023 Team Status: Inactive Member Role Status Dates Sandra Keita DO Primary Care Provider Active Start: November 18, 2023 End: November 17manuel Salinas , APRNAttending ProviderActiveStart: November 18, 2023 End: November 18, 2023 Team Status: Inactive Member Role Status Dates Sandra Keita DO Primary Care Provider Active Start: November 26, 2023 End: November 26, 2023Mark Lillian Kincaid , MDAttending ProviderActiveStart: November 26, 2023 End: November 26, 2023 Team Status: Inactive Member Role Status Dates Sandra Keita DO Primary Care Provider Active Start: December 02, 2023 End: December 02, 2023Mark Lillian Kincaid , MDAttending ProviderActiveStart: December 02, 2023 End: December 01manuel Salinas , APRNReferring ProviderActiveStart: December 02, 2023 End: December 02, 2023 Team Status: Inactive Member Role Status Dates Sandra Keita DO Primary Care Provider Active Start: December 17, 2023 End: December 17, 2023Mark Lillian Kincaid , MDAttending ProviderActiveStart: December 17, 2023 End: December 17, 2023 Team Status: Inactive Member Role Status Dates Sandra Keita DO Primary Care Provider Active Start: January 06, 2024 End: January 06, 2024Molurdes Faust MDAttending ProviderActiveStart: January 06, 2024 End: January 06, 2024 Team Status: Inactive Member Role Status Dates Karl Fritz DPM Attending Provider Active Start: January 07, 2024 End: January 07, 2024 Team Status: Inactive Member Role Status Dates Edgar Eden DO Attending Provider Active S tart: January 15, 2024 End: January 15, 2024Dayna Daniels Care ProviderActiveStart: January 15, 2024 End: January 15, 2024Team MemberRelationshipSpecialtyStart DateEnd Date Sandra Keita DO [address] [place] [address] PCP - [facility]01/09/23 Team Status: Inactive Member Role Status Dates Sandra Keita DO Primary Care Provide r, Attending Provider Active Start: February 03, 2024 End: February 03, 2024Team MemberRelationshipSpecialtyStart DateEnd Date Sandra Keita DO [address] [place] [address] PCP - [facility]01/09/23Team MemberRelationshipSpecialtyStart DateEnd Date Sandra Keita DO [address] [place] [address] [facility]01/09/23Team MemberRelationshipSpecialtyStart DateEnd Date Sandra Keita DO [address] [place] [address] PCP - GeneralFamily Medicine01/09/23Team MemberRelationshipSpecialtyStart DateEnd Date Sandra Keita DO [address] [place] [address] PCP - GeneralFamily Medicine01/09/23Team MemberRelationshipSpecialtyStart DateEnd Date Sandra Keita DO [address] [place] [address] PCP - GeneralFamily Medicine09/25/23Team MemberRelationshipSpecialtyStart DateEnd Date Sandra Keita, [address] [place] [address] PCP - GeneralFamily Medicine01/09/23Team MemberRelationshipSpecialtyStart DateEnd Date Sandra Keita DO [address] [place] [address] PCP - GeneralFamily Medicine01/09/23Team MemberRelationshipSpecialtyStart DateEnd Date Sandra Keita DO [address] [place] [address] PCP - GeneralFamily Medicine01/09/23Team MemberRelationshipSpecialtyStart DateEnd Date Sandra Keita DO [address] [place] [address] PCP - GeneralFamily Medicine09/25/23Team MemberRelationshipSpecialtyStart DateEnd Date Sandra Keita DO [address] [place] [address] PCP - GeneralFamily Medicine01/09/23Team MemberRelationshipSpecialtyStart DateEnd Date Sandra Keita DO [address] [place] [address] PCP - GeneralFamily Medicine01/09/23Team MemberRelationshipSpecialtyStart DateEnd Date Sandra Keita DO [address] [place] [address] PCP - GeneralFamily Medicine09/25/23Team MemberRelationshipSpecialtyStart DateEnd Date Sandra Keita, DO [address] [place] [phone] PCP - GeneralFamily Medicine01/09/23Team MemberRelationshipSpecialtyStart DateEnd Date Sandra Keita DO [address] [place] [phone] PCP - GeneralFamily Medicine01/09/23Team MemberRelationshipSpecialtyStart DateEnd Date Sandra Keita, DO [address] [place] [phone] PCP - GeneralFamily Medicine01/09/23Team MemberRelationshipSpecialtyStart DateEnd Date Sandra Keita, DO [address] [place] [phone] PCP - GeneralFamily Medicine01/09/23Team MemberRelationshipSpecialtyStart DateEnd Date Millie Keitaria, DO [address] [place] [phone] PCP - GeneralFamily Medicine01/09/23Team MemberRelationshipSpecialtyStart DateEnd Date Sandra Keita, DO [address] [place] [address] PCP - [facility] Medicine01/09/23Team MemberRelationshipSpecialtyStart DateEnd Date Sandra Keita DO [address] [place] [address] PCP - [facility] Medicine01/09/23Team MemberRelationshipSpecialtyStart DateEnd Date Sandra Keita, [address] [place] [address] PCP - [facility]01/09/23Team MemberRelationshipSpecialtyStart DateEnd Date Sandra Keita DO [address] [place] [address] PCP - [facility] Medicine01/09/23 Team Status: Inactive Member Role Status Dates Sandra Keita DO Primary Care Provider Active Start: February 14, 2024 End: February 14, 2024Manjit Gleason MDAttending ProviderActiveStart: February 14, 2024 End: February 14, 2024 Team Status: Inactive Member Role Status Dates Sandra Keita DO Primary Care Provider Active Start: April 14, 2024 End: April 14, 2024Nataliya Jane APRNAttending ProviderActive Start: April 14, 2024 End: April 14, 2024Oz Kincaid MDReferring ProviderActiveStart: April 14, 2024 End: April 14, 2024 Team Status: Inactive Member Role Status Dates Sandra Keita DO Primary Care Provider Active Start: April 27, 2024 End: April 27Chris Cannon ProviderActiveStart: April 27, 2024 End: April 27, 2024 Team Status: Inactive Member Role Status Dates Sandra Keita DO Primary Care Provider Active Start: April 28, 2024 End: April 28, 2024Priscillakarlos Jane Bricetenderic ProviderActive Start: April 28, 2024 End: April 28, 2024Oz Kincaid , MDReferring ProviderActiveStart: April 28, 2024 Team Status: Inactive Member Role Status Dates Sandra Keita DO Primary Care Provider Active Start: April 28, 2024 End: April 28, 2024Barberrebecca Russell ASANAttenderic ProviderActiveStart: April 28, 2024 End: April 28, 2024 Team Status: Active Member Role Status Dates Sandra Keita DO Primary Care Provider Active Start: April 28, 2024 Carlyle Tamayo ProviderActiveStart: April 28, 2024 Jori Hearn DOAdmit Provider, Attending ProviderActiveStart: April 28, 2024 Team Status: Inactive Member Role Status Dates Sandra Keita DO Primary Care Provider Active Start: April 28, 2024 End: April 30Carlyle Page ProviderActiveStart: April 28, 2024 End: April 30, 2024Micjulia Hearn DOAdmit ProviderActiveStart: April 28, 2024 End: April 30, 2024Rasantos Lang MDAttending ProviderActiveStart: April 28, 2024 End: April 30madisyn Clark DOOther ProviderActiveStart: April 28, 2024 End: April 30, 2024 Team Status: Inactive Member Role Status Dates Sandra Keita DO Primary Care Provide r, Attending Provider Active Start: May 07, 2024 End: May 07, 2024 Team Status: Inactive Member Role Status Dates Sandra Keita DO Primary Care Provide r, Attending Provider Active Start: May 25, 2024 End: May 25, 2024Team MemberRelationshipSpecialtyStart DateEnd Date Sandra Keita DO [address] [facility] [place] [address] [facility]09/25/23 Team Status: Inactive Member Role Status Dates Sandra Keita DO Primary Care Provider Active Start: April 28, 2024 End: April 28, 2024Nataliya Saranya GaonaTim lott ProviderActive Start: April 28, 2024 End: April 28, 2024Team MemberRelationshipSpecialtyStart DateEnd Date Keita Sandra, [address] [facility] [place] [address] PCP - [facility]01/09/23 Team Status: Inactive Member Role Status Dates Sandra Keita DO Primary Care Provider Active Start: September 10, 2024 End: September 10, 2024ImaSánchez Wigginsending ProviderActiveStart: September 10, 2024 End: September 10, 2024 Team Status: Active Member Role Status Dates Sandra Keita DO Primary Care Provider Active Start: September 10, 2024 Imad Rosibel , MDAttending Provider, Other ProviderActiveStart: September 10, 2024 Team Status: Inactive Member Role Status Dates Samm Medina MD Attending Provider Active S tart: October 01, 2024 End: October 01, 2024GlEllen Denny ProviderActiveStart: October 01, 2024 End: October 01, 2024PHYSICIAN NO FAMILYPrimary Care ProviderActiveStart: October 01, 2024 End: October 01, 2024Team MemberRelationshipSpecialtyStart DateEnd Date [facility]Team MemberRelationshipSpecialtyStart DateEnd Date [facility]23Team MemberRelationshipSpecialtyStart DateEnd Date Sandra Keita DO PCP - Generalmily Medicine01/09/23Team MemberRelationshipSpecialtyStart DateEnd Date Sandra Keita DO [address] [place] [address] [facility]/24Team MemberRelationshipSpecialtyStart DateEnd Date Sandra Keita DO [address] [place] [address] [facility] - [facility]/24Team MemberRelationshipSpecialtyStart DateEnd Date Sandra Keita DO [address] [place] [address] [facility] - [facility]15/24Team MemberRelationshipSpecialtyStart DateEnd Date Sandra Keita DO [address] [place] [address] PCP - [facility] Medicine10/15/24 Team Status: Inactive Member Role Status Dates Sandra Keita DO Primary Care Provider Active Start: August 25, 2024 End: August 25, 2024Sandra Keita DOAttmalcolm ProviderActiveStart: August 25, 2024 End: August 25, 2024 Team Status: Active Member Role Status Dates Sandra Keita DO Primary Care Provider Active Start: September 10, 2024 Manjit Gleason MDAttending ProviderActiveStart: September 10, 2024 Manjit Gleason MDOther ProviderActiveStart: September 10, 2024 Team Status: Inactive Member Role Status Dates Karl Fritz DPM Attending Provider Active Start: November 16, 2024 End: November 16, 2024Team MemberRelationshipSpecialtyStart DateEnd Date Sandra Keita DO [address] [facility] [place] [address] PCP - [facility]10/15/24Team MemberRelationshipSpecialtyStart DateEnd Date Sandra Keita DO [address] [place] [address] [facility] - [facility]10/15/24 Team Status: Active Member Role Status Dates Shantel Norton APRN CHIEF [employer] DEPARTMENT-C Primary Care Provider Active Team Status: Inactive Member Role Status Dates Shantel Norton APRN [employer]-C Primary Care Provider Active Start: December 15, 2024 End: December 15, 2024Shantel Norton APRN CHIE[employer] DEPARTMENT-CAttending ProviderActive Start: December 15, 2024 End: December 15, 2024Team MemberRelationshipSpecialtyStart DateEnd Date Sandra Keita DO [address] [facility] [place] [address] PCP - [facility]10/15/24 Team Status: Inactive Member Role Status Dates Samm Medina MD Attending Provider Active S tart: December 24, 2024 End: December 24, 2024Shantel Norton APRN [employer] DEPARTMENT-CPrimary Care ProviderActive Start: December 24, 2024 End: December 24, 2024Team MemberRelationshipSpecialtyStart DateEnd Date Shantel Norton APRN-LITHOGRAPHIC PLATE MAKER APPRENTICE [address] [place] [address] [facility] - [facility]12/30/24 Team Status: Active Member Role Status Dates Samm Medina MD Attending Provider Active S tart: December 31, 2024 Samm Medina MDOther ProviderActiveStart: December 31, 2024 Shantel Norton APRN [employer] DEPARTMENT-CPrimary Care ProviderActiveStart: December 31, 2024 Team Status: Inactive Member Role Status Dates Shantel Norton APRN [employer] DE[employer]-C Primary Care Provider Active Start: January 052024 End: January 05, 2025Angelique Russell APRNAttending ProviderActiveStart: January 05, 2025 End: January 05, 2025 Team Status: Inactive Member Role Status Dates Shantel Norton APRN [employer] DE[employer]-C Primary Care Provider Active Start: December 282024 End: January 12, 2025Jekanchan Norton APRN [employer] DEPARTMENT-CAttending ProviderActive Start: January 12, 2025 End: January 12, 2025Team MemberRelationshipSpecialtyStart DateEnd Date Sandra Keita, DO [address] [facility] [place] [address] [facility] - [facility]10/15/24Team MemberRelationshipSpecialtyStart DateEnd Date Sandra Keita, DO [address] [facility] [place] [place] [address] [facility]10/15/24 Team Status: Inactive Member Role Status Dates Shantel Norton APRN [employer] DEPARTMENT-C Primary Care Provider Active Start: February 02, 2025 End: February 02, 2025Shantel Norton APRN CHIEF [facility] DEPARTMENT-CAttending ProviderActive Start: February 02, 2025 End: February 02, 2025Team MemberRelationshipSpecialtyStart DateEnd Date Magdalena Keitaa, DO [address] [place] [place] [phone] PCP - [facility]10/15/24Te MemberRelationshipSpecialtyStart DateEnd Date Sandra Keita, [address] [place] [address] [facility] - [facility]10/15/24Te MemberRelationshipSpecialtySteinhatchee DateEnd Date Sandra Keita, [address] [place] [phone] PCP - [facility]10/15/24 Goals (unrecognized section and content) Goals may [...] BE BASED ON THE PRIMARY CLINICAL RECORDS. [facility]. provides no warranty or guarantee of the accuracy or completeness of information in this document.
--- NOTE | 2025-02-25 13:41 | PM.CN ---
Consult Note: HPI Data of Consult Patient: known to practice within the last 3 years Requesting Physician: Roseanne Lin NP Primary Care Provider: Sandra Lewis DO Family Provider: JONAS YODER Consult Narrative Reason for consult: neck pain and low back pain Narrative: Kerry wolf pleasant 69 year old female presents for evaluation of chronic low back pain and neck pain. low back and neck pain 7/10 increasing to 10/10. Pt finding significant benefit to lyrica 300mg bid through neurology and tramadol 50mg BID PRN moderate to severe pain from our office without side effects. pt noted >50% improvement for 3 months from prior bilateral L4-5 TFESI. following with wound care and podiatry to right foot wound. did not get to trial PT for neck pain and weakness of upper extremeites. cervical xray pending results. cc:: CC: Roseanne Lin NP Review of Systems ROS Musculoskeletal Reports: back pain, neck pain and extremity pain PFSH PFSH Medical History (Updated 02/25/25 @ 13:56 by Roseanne Lin NP) Low back pain ?M54.50 - Low back pain, unspecified (ICD-10) Neck pain ?M54.2 - Cervicalgia (ICD-10) Heartburn ?R12 - Heartburn (ICD-10) Acid reflux ?K21.9 - Gastro-esophageal reflux disease without esophagitis (ICD-10) Diabetes ?E11.9 - Type 2 diabetes mellitus without complications (ICD-10) Sleep apnea ?G47.30 - Sleep apnea, unspecified (ICD-10) Smoker ?F17.200 - Nicotine dependence, unspecified, uncomplicated (ICD-10) High cholesterol ?E78.00 - Pure hypercholesterolemia, unspecified (ICD-10) Hypertension ?I10 - Essential (primary) hypertension (ICD-10) Atrial fibrillation ?I48.91 - Unspecified atrial fibrillation (ICD-10) Congestive heart failure ?I50.9 - Heart failure, unspecified (ICD-10) Angina at rest ?I20.89 - Other forms of angina pectoris (ICD-10) Surgical History (Updated 11/03/24 @ 11:49 by Melina Presley) H/O eye surgery ?Z98.890 - Other specified postprocedural states (ICD-10) History of cholecystectomy ?Z90.49 - Acquired absence of other specified parts of digestive tract (ICD-10) H/O: hysterectomy ?Z90.710 - Acquired absence of both cervix and uterus (ICD-10) S/P tonsillectomy and adenoidectomy ?Z90.89 - Acquired absence of other organs (ICD-10) Family History Mother Family history of CHF (congestive heart failure) Family history of hypertension Family history of diabetes mellitus Sister Family history of COPD (chronic obstructive pulmonary disease) Father Family history of cancer Family history of myocardial infarction Family history of stroke Social History Within the past year, how often did you have a drink containing alcohol: never Within the past year, how often did you have six or more drinks on one occasion: never Score interpretation: A score less than 3 is consistent with normal alcohol consumption. Smoking status: Current every day smoker Second hand tobacco smoke exposure: No Non-prescribed substance use: denies use Previous occupational history: retired Highest level of school completed/degree received: high school graduate Do you want help with school or training: No Are you now , , , , never or living with a partner: In a typical week, how many times do you talk on the telephone with family, friends, or neighbors: 3 or more times per week How often do you get together with friends or relatives: 3 or more times per week How often do you attend uatsdin or episcopal services: 4 or more times per year Do you belong to any clubs or organizations such as uatsdin groups unions, fraternal or athletic groups, or school groups: yes Total score: 3 Score interpretation: A score of greater than or equal to 2 indicates the lowest level of social isolation. Little interest or pleasure in doing things: not at all Feeling down, depressed, or hopeless: several days Feel stressed/tense/nervous/anxious/difficulty sleeping: not at all Meds Home Medications and Allergies Home Medications ?Medication ?Instructions ?Recorded ?Confirmed ?Type apixaban 5 mg tablet (Eliquis) 5 mg PO Q12H 10/05/24 11/23/24 History aspirin 81 mg tablet 81 mg PO DAILY 10/05/24 11/23/24 History bupropion HCl 150 mg 24 hr tablet, 150 mg PO DAILY 10/05/24 11/23/24 History extended release carvedilol 12.5 mg tablet 12.5 mg PO Q12H 10/05/24 11/23/24 History donepezil 10 mg tablet 20 mg PO .qd 10/05/24 11/24/24 History empagliflozin 25 mg tablet 25 mg PO DAILY 10/05/24 11/23/24 History (Jardiance) folic acid 1 mg tablet 1 mg PO DAILY 10/05/24 11/23/24 History furosemide 20 mg tablet 20 mg PO .qod 10/05/24 11/24/24 History memantine 10 mg tablet 10 mg PO BID 10/05/24 11/23/24 History metformin 500 mg tablet 500 mg PO BID 10/05/24 11/23/24 History nortriptyline 25 mg capsule 25 mg PO .qhs 10/05/24 11/24/24 History omeprazole 20 mg capsule,delayed 20 mg PO DAILY 10/05/24 11/24/24 History release semaglutide 1 mg/dose (4 mg/3 mL) 2 mg subcut .weekly 10/05/24 11/23/24 History subcutaneous pen injector (Ozempic) simvastatin 20 mg tablet 20 mg PO DAILY 10/05/24 11/24/24 History tramadol 50 mg tablet 50 mg PO BID PRN pain #60 tabs 10/05/24 11/23/24 Rx insulin glargine U-300 conc 300 22 unit subcut Q24H 11/23/24 11/23/24 History unit/mL (1.5 mL) subcutaneous pen (Ashley Merida U-300 Insulin) insulin lispro 100 unit/mL 1 sliding scale dose subcut ACHS 11/23/24 11/25/24 History subcutaneous pen magnesium oxide 400 mg (241.3 mg 400 mg PO BID 11/23/24 11/24/24 History magnesium) tablet acetaminophen 325 mg tablet 650 mg (2 x 325 mg) PO Q8H PRN 11/25/24 Rx (Tylenol) Pain 30 days #60 tabs amoxicillin 875 mg-potassium 1 tab PO BID 10 days #20 tabs 11/25/24 Rx clavulanate 125 mg tablet doxycycline hyclate 100 mg tablet 100 mg PO BID 10 days #20 tabs 07/30/25 Rx pregabalin 150 mg capsule 150 mg PO Q12H #0 caps 11/25/24 11/23/24 Rx tramadol 50 mg tablet 50 mg PO BID PRN pain #60 tabs 11/26/24 Rx tramadol 50 mg tablet 50 mg PO BID PRN pain #60 tabs 01/27/25 Rx Allergies Allergy/AdvReac Type Severity Reaction Status Date / Time Sulfa (Sulfonamide Allergy Mild Vomiting Verified 11/23/24 17:32 Antibiotics) Exam Constitutional Documenting provider has reviewed patient's vital signs: yes Common normals: no apparent distress, oriented x3, healthy appearing, alert and well nourished General appearance: cooperative HENMT Common normals: normocephalic, hearing grossly normal bilaterally and moist oral mucous membranes Head and scalp: normocephalic Eye Common normals: PERRL Pupil: PERRL Neck & C-Spine Common normals: full ROM General: normal visual inspection Cervical spine: cervical ROM abnormal, pain with cervical ROM and cervical spine tenderness Other: negative spurlings strength 5/5 in BUE sensation intact BUE Chest Common normals: inspection of chest normal Respiratory Common normals: normal respiratory effort, no retractions and no use of accessory muscles Back & Pelvis Lumbar spine/lower back: ROM limited, pain with ROM, lumbar spinal tenderness, straight leg raise positive right and straight leg raise positive left Other: increased pain to bilateral L4,5 with standing, walking, forward flexion Neuro Common normals: oriented x3 Sensorium/orientation: alert Psych Common normals: mental status grossly normal, thought process normal, cooperative, affect normal, speech normal and activity/motor behavior normal Speech: normal speech Thought process: normal thought process Results Additional Findings Additional findings: If on a controlled substance or opioids, I have checked an [place]AR[place] report on this patient and there are no aberrancies noted in the prescribing history.??If on a controlled substance or opioid a drug screen was completed and reviewed within the last year, and if there has not been a drug screen completed we ordered one today to monitor higher risk, state monitored pain medication use. As part of providing excellent, safe, comprehensive care, the following was completed at our patient's visit: 1. A medication reconciliation and review to ensure accurate knowledge of current/active medications, including asking our patients to inform us about any atlx-eys-gauxjbr medications or herbal remedies/nutritional supplements/alternative remedies. 2. A review to specifically ensure our patients have had annual screening for screening for depression, screening for tobacco use, and screening for unhealthy alcohol use. For concerning screenings had a discussion with the patient, provided patient education, and recommended follow-up with primary care provider when appropriate. If patient noted with a risk of falling, they received education on strength, gait, and balance training to prevent future risk of falling. Portions of this note may have been carried over from the previous visit and updated as appropriate. Please note this office utilizes paper charting in addition to the electronic medical record. A list of current medications, vitals, and PMH is available there as the clinical staff outside of myself do not have access to [employer] charting during the clinic day operations. As part of providing quality comprehensive care the current medications, vitals, and PMH were reviewed in the paper chart. Assessment and Plan Assessment and Plan (1) Lumbar stenosis with neurogenic claudication: Assessment and Plan: 11/09/24 bilateral L4-5 TFESI >50% improvement for at least 3 months (2) Chronic neck pain: (3) Upper extremity weakness: (4) Chronic use of opiate drug for therapeutic purpose: (5) Cervical spondylosis: Plan defer repeat bilateral L4-5 TFESI under fluoroscopy due to hyperglycemia and wound. noting delayed healing of wound due to uncontrolled DM. pt to call to schedule repeat injection as needed. PT reordered for chronic neck pain refill/continue tramadol 50mg BID PRN moderate to severe pain, utilizing appropriately without side effects continue f/u with PCP and podiatry f/u 3 months, sooner if needed
== END 2025-02-25 13:13 | disposition home or self-care (01) ==
LOC: PM 13:17
PROVIDERS: Family Provider Family Medicine; PCP Family Medicine; Visit Provider Nurse Practitioner
DX: M54.2 Cervicalgia (principal); M48.062 Spinal stenosis, lumbar region with neurogenic claudication; M53.1 Cervicobrachial syndrome; Z79.891 Long term (current) use of opiate analgesic; M47.816 Spondylosis without myelopathy or radiculopathy, lumbar region
CPT/HCPCS: 72050; G0463

== ENCOUNTER 2025-03-03 10:54 | Outpatient (OUT) | payer MEDICARE, MEDICAID, SELFPAY ==
--- OUTSIDE RECORDS SUMMARY | 2015-08-21 19:00 | XMS_ITS | Continuity of Care Document ---
Author Organization [facility] Address [address] [place] [address] Phone Care Team Providers Care Continuing Education Director Name Role Phone Bridget VARGAS, Margarita Unavailable [...] Diagnoses Date Provider Providers Copied on Encounter [facility], [address] [place], [place], [id number] , tel:[phone] [facility] - OP No Information 6 Bridget Avila. [address] [facility] Physician Office [place], [id number], [place]. tel:[phone] Referring Provider: Margarita Gutierrez, [address] [facility] Physician Office Building, [place], [address] . tel:[phone] [facility], [address] [place], [place], [id number] , [phone] [facility] - [facility] Shortness of breathChest pain, unspecifiedDizzines s and giddiness 6 Susie Del Toro. [address] [facility] Physicians Office [place], [address], [place]. tel:[phone] Referring Provider: Margarita Gutierrez, [address] [facility] Physician Office Building, [place], [address] . tel:[phone] [facility], [address] [facility], [place], [place], [id number] , tel:[phone] [facility] - [facility] Shortness of breathChest pain, unspecifiedDizzines s and giddiness Apr-0 6-201 6 Jean Pierre-Marietta Blackwell. [address] [facility] Physicians Office Building, [place], [place], [facility], . tel:[phone] Referring Provider: Margarita Gutierrez, [address] [facility] Physician Office Building, [place], [address] . tel:[phone] Family History Family Member Type Diagnosis Age At Onset No Information Payers Payer name Insurance type Covered democrat ID Jeremiah epsinoza(link) Yoana [id number] Social History Type Description Quantity Date Captured [...]
--- OUTSIDE RECORDS SUMMARY | 2015-08-31 06:55 | XMS_ITS | Continuity of Care Document ---
Author Organization [facility] Address [address] [place] [address] Phone Care Team Providers Care Coal Or Ore Controller Name Role Phone Newton Segura MD Unavailable Unavailable Allergies, Adverse Reactions, Alerts Substance Reaction Status Criticality IODINE flu symptoms(moderate) Active No In formation Sulfa (Sulfonamide Antibiotics) Active No Information Medications Medication Instructions Dosage Effective Dates (start - stop) Status Comments Aspir-81 81 mg tablet,delayed release take 1 tablet by oral route every day - Active Stool Softener 100 mg capsule take 2 capsule by oral route every day at bedtime as needed 200 MG - Active simvastatin 20 mg tablet take 1 tablet by oral route every day in the evening 20 MG - Active lisinopril 10 mg tablet take 1 tablet by oral route every day 10 MG - Active Vitamin D2 50,000 unit capsule take 1 capsule by oral route every week - Active Invokana 300 mg tablet take 1 tablet by oral route every day before the first meal of the day 300 MG - Active temazepam 30 mg capsule take 1 capsule by oral route every day at bedtime as needed 30 MG - Active Lyrica 150 mg capsule take 1 capsule by oral route 3 times every day 150 MG - Active omeprazole 20 mg capsule,delayed release take 1 capsule by oral route every day 30 minutes to 1 hour before a meal 20 MG - Active Procedures Procedure Date OFFICE/OUTPATIENT VISIT, EST OFFICE CONSULTATION EKG Complete 12 Lead OFFICE/OUTPATIENT VISIT, NEW Advance Directives Directive Yes / No Effective Date File Name No Information Encounters Encounter Description Practice Location Reason(s) For Visit Diagnoses Date Provider Providers Copied on Encounter [facility], [address] [place] [address], [id number], tel:[phone] [facility] No Information 6 Colton Glez. [address] [facility] Physician Office Building, [place], [place], [id number], . tel:[phone] OFFICE/OUTPAT IENT VISIT, [facility] Physician [facility], [address] [place] [address], [id number], [place] tel:[phone] [facility] Hyperlipidemia , unspecified hyperlipidemia typeObesity, unspecified obesity severity, unspecified obesity typeShortness of breathEssentia l hypertension, hypertension with unspecified goal 6 Georgia Mastersi. [address] [place] [address], [place], [place], [id number], [place]. tel:[phone] OFFICE CONSULTATION [facility], [address] [place] [address], [id number], [place] tel:[phone] [facility] Shortness of breathEssentia l hypertension, hypertension with unspecified goalHyperlipid emia LDL goal <100Diabetes mellitus type II, non insulin dependent Jun- 6 Brigdet Avila. [address] [facility] Physician Office Building, [place], [place], [id number], [place]. tel:[phone] Referring Provider: Sadie Fritz NP, [facility] Man[facility] Saldivar, [place], [address]. tel:[phone] [facility], [address] [place] [address], [id number], [place] tel:[phone] [facility] No Information 6 Bridget Avila. [address] [facility] Physician Office Building, [place], [place], [id number], [place]. tel:[phone] OFFICE/OUTPAT IENT VISIT, [facility] [place], [address] [place] [address], [id number], [place] tel:[phone] [facility] Obesity, Morbid (chief complaint) Body mass index (BMI) 33.0-33.9, adult 7201 5 Steve Bishop. [address] [facility] Physician Office Building, [place], [place], [id number], [place]. tel:[phone] Family History Family Member Type Diagnosis Age At Onset Sister Problem (finding) no hx of CAD Mother Problem (finding) CHF and HTN Brother Problem (finding) Alive and well Sister Problem (finding) 64 Father Problem (finding) [place] with hx of cabg (Cau se Of ) 79 Sister Problem (finding) myocardial inf arct in first degree female relative less than 65 years of age (Cause Of ) 64 Father Problem (finding) Brother Problem (finding) No hx of CAD Payers Payer name Insurance type Covered constitution party ID Jeremiah espinoza(rod Lees [id number] Social History Type Description Quantity Date Captured [...] Referral Ordered: Stress Test Cardiovascular (Plain Treadmill) [id number] Ordered: X-Ray Chest PA & Lateral: 2 View [id number] Ordered: Complete Pulmonary Function Test ordered History [...] 144/4.1. Related to Hyperlipidemia, unspecified hyperlipidemia type Believe that her jakob rtness of breath [...] to Essential hypertension, hypertension with unspecified goal She is on statin the therese and we will attempt to get a copy of her most recent lipid profile for my review Related to Hyperlipidemia LDL goal <100 Special diet education Related t o Body mass index (BMI) 33.0-33.9, adult Assessments Type Assessment Date No Information Patient Care Teams Name Effective Dates (start - stop) Status Members No Information
--- OUTSIDE RECORDS SUMMARY | 2020-07-25 10:15 | XMS_ITS | Continuity of Care Document ---
Author Organization [facility] Address [address] [place] [address] Phone Care Team Providers Care Supervisor Cytogenetic Laboratory Name Role Phone John Morgan Unavailable Unavailable [...] CHIROPRACTIC MANIPULATION GLYCOSYLATED HEMOGLOBIN TEST OFFICE/OUTPATIENT VISIT, [facility] Advance Directives Directive Yes / No Effective Date File Name No Information Encounters Encounter Description Practice Location Reason(s) For Visit Diagnoses Date Provider Providers Copied on Encounter [facility], [address] [place] [address], [id number] , tel: [phone] [facility] cervical spine (chief complaint) cervical spine (chief complaint) Segmental and somatic dysfunction of cervical regionCervicalgiaSegm ental and somatic dysfunction of lumbar region 9- 1 Eddie Lopez. [address] [place] [address], [id number] , [place]. tel: [phone] [facility], [address] [place] [address], [id number] , tel: [phone] [facility] cervical spine (chief complaint) cervical spine (chief complaint) Segmental and somatic dysfunction of cervical regionCervicalgiaSegm ental and somatic dysfunction of lumbar region 0-201 9 Eddie Lopez. [address] [place] [address], [id number] , [place]. tel: [phone] [facility], [address] [place] [address], [id number] , [place] tel: [phone] [facility] cervical spine (chief complaint) cervical spine (chief complaint) Segmental and somatic dysfunction of cervical regionCervicalgiaSegm ental and somatic dysfunction of lumbar regionLow back pain Jul-0 9-201 9 Eddie Lopez. [address] [place] [address], [id number] , [place]. tel: [phone] [facility], [address] [place] [address], [id number] , [place] tel: [phone] [facility] cervical spine (chief complaint) cervical spine (chief complaint) Segmental and somatic dysfunction of cervical regionCervicalgiaSegm ental and somatic dysfunction of lumbar regionLow back pain 9 Eddie Lopez. [address], [place], [id number] , [place]. tel: [phone] [facility], [address], [place], [id number] , [place] tel: [phone] [facility] cervical spine (chief complaint) cervical spine (chief complaint) Segmental and somatic dysfunction of cervical regionCervicalgiaSegm ental and somatic dysfunction of lumbar regionLow back pain 9 Eddie Lopez. [address], [place], [id number] , [place]. tel: [phone] [facility], [address] [place] [address], [id number] , [place] tel: [phone] [facility] cervical spine (chief complaint) cervical spine (chief complaint) Segmental and somatic dysfunction of cervical regionCervicalgiaSegm ental and somatic dysfunction of lumbar region 8 Eddie Lopez. [address], [place], [id number] , [place]. tel: [phone] [facility], [address] [place] [address], [id number] , [place] tel: [phone] [facility] Spine Care (chief complaint) Segmental and somatic dysfunction of cervical regionCervicalgiaSegm ental and somatic dysfunction of lumbar region 8 Eddie Lopez. [address] [place] [address], [id number] , [place]. tel: [phone] [facility], [address] [place] [address], [id number] , [place] tel: [phone] [facility] Spine Care (chief complaint) Segmental and somatic dysfunction of cervical regionCervicalgiaSegm ental and somatic dysfunction of lumbar region 8 Eddie Lopez. [address], [place], [id number] , [place]. tel: [phone] [facility], [address] [place] [address], [id number] , [place] tel: [phone] [facility] Spine Care (chief complaint) Segmental and somatic dysfunction of cervical regionCervicalgiaSegm ental and somatic dysfunction of lumbar regionOther intervertebral disc degeneration, lumbar region May-0 8 Eddie Lopez. [address], [place], [id number] , [place]. tel: [phone] [facility], [address], [place], [id number] , [place] tel: [phone] [facility] Spine Care (chief complaint) Segmental and somatic dysfunction of lumbar regionLow back painOther intervertebral disc degeneration, lumbar regionSegmental and somatic dysfunction of cervical region Jul-2 0- 8 Eddie Lopez. [address], [place], [id number] , [place]. tel: [phone] [facility], [address] [place] [address], [id number] , [place] tel: [phone] [facility] Spine Care (chief complaint) Segmental and somatic dysfunction of lumbar regionLow back painOther intervertebral disc degeneration, lumbar regionSegmental and somatic dysfunction of cervical region Jun-2 8 Eddie Lopez. [address], [place], [id number] , [place]. tel: [phone] [facility], [address], [place], [id number] , [place] tel: [phone] [facility] Spine Care (chief complaint) Segmental and somatic dysfunction of lumbar regionLow back painOther intervertebral disc degeneration, lumbar regionSegmental and somatic dysfunction of cervical region Jun-2 2- 8 Eddie Lopez. [address], [place], [id number] , [place]. tel: [phone] [facility], [address], [place], [id number] , [place] tel: [phone] [facility] Spine Care (chief complaint) Segmental and somatic dysfunction of lumbar regionLow back painOther intervertebral disc degeneration, lumbar regionSegmental and somatic dysfunction of cervical region Jun- 9- 8 Eddie Lopez. [address], [place], [id number] , [place]. tel: [phone] [facility], [address], [place], [id number] , [place] tel: [phone] [facility] Spine Care (chief complaint) Segmental and somatic dysfunction of lumbar regionLow back painOther intervertebral disc degeneration, lumbar regionSegmental and somatic dysfunction of cervical region Jun-1 5-201 8 Eddie Lopez. [address], [place], [id number] , [place]. tel: [phone] [facility], [address], [place], [id number] , [place] tel: [phone] [facility] Spine Care (chief complaint) Segmental and somatic dysfunction of lumbar regionLow back painOther intervertebral disc degeneration, lumbar regionSegmental and somatic dysfunction of cervical region Jun-1 2-201 8 Eddie Lopez. [address] [place] [address], [id number] , [place]. tel: [phone] [facility], [address], [place], [id number] , [place] tel: [phone] [facility] Spine Care (chief complaint) Segmental and somatic dysfunction of lumbar regionLow back painOther intervertebral disc degeneration, lumbar regionSegmental and somatic dysfunction of cervical region Mar-0 8-201 8 Eddie Lopez. [address], [place], [id number] , [place]. tel: [phone] [facility], [address], [place], [id number] , [place] tel: [phone] [facility] Spine Care (chief complaint) Segmental and somatic dysfunction of lumbar regionLow back painOther intervertebral disc degeneration, lumbar regionSegmental and somatic dysfunction of cervical region Jun-0 5-201 8 Eddie Lopez. [address] [place] [address], [id number] , [place]. tel: [phone] [facility], [address] [place] [address], [id number] , [place] tel: [phone] [facility] Spine Care (chief complaint) Segmental and somatic dysfunction of lumbar regionLow back painOther intervertebral disc degeneration, lumbar regionSegmental and somatic dysfunction of cervical region Mar-0 1- 8 Eddie Lopez. [address], [place], [id number] , [place]. tel: [phone] [facility], [address], [place], [id number] , [place] tel: [phone] [facility] Spine Care (chief complaint) Segmental and somatic dysfunction of lumbar regionLow back painOther intervertebral disc degeneration, lumbar regionSegmental and somatic dysfunction of cervical region Feb-2 6- 8 Eddie Lopez. [address], [place], [id number] , [place]. tel: [phone] [facility], [address] [place] [address], [id number] , [place] tel: [phone] [facility] Spine Care (chief complaint) Segmental and somatic dysfunction of lumbar regionLow back painOther intervertebral disc degeneration, lumbar regionSegmental and somatic dysfunction of cervical region Feb-2 2- 8 Eddie Lopez. [address], [place], [id number] , [place]. tel: [phone] [facility], [address], [place], [id number] , [place] tel: [phone] [facility] Spine Care (chief complaint) Segmental and somatic dysfunction of lumbar regionLow back painOther intervertebral disc degeneration, lumbar regionSegmental and somatic dysfunction of cervical region Feb-2 0- 8 Eddie Lopez. [address], [place], [id number] , [place]. tel: [phone] [facility], [address], [place], [id number] , [place] tel: [phone] [facility] No Information Yan- 7 Eber Ramos. [address], [place], [id number] , [place]. tel: [phone] [facility], [address] [place] [address], [id number] , [place] tel:[phone] [facility] No Information 7 Ebre Ramos. [address], [place], [id number] , [place]. tel: [phone] OFFICE/OUTPA TIENT VISIT, [facility], [address], [place], [id number] , [place] tel: [phone] [facility] est care (chief complaint) medication refill (chief complaint) Type 2 diabetes mellitus with hyperglycemiaType 2 DM with diabetic neuropathyInsomnia 7 Eber Ramos. [address] [place] [address], [id number] , [place]. tel: [phone] Family History Family Member Type Diagnosis Age [...] depression Payers Payer name Insurance type Covered constitution party ID Authoriza tion(s) No Information Social [...] Of Treatment Date Type Action Status Goal Lipid panel. Due on due Goal Hemoglobin A1C. Due on due Goal Dental exam. Due on due Goal Pneumococcal vaccine. Due on due Goal Dilated eye exam. Due on Jun due Goal Urine microalbumin. Due on due Goal Foot exam. Due on due Goal Foot exam. Due on 9 due Goal Pneumococcal vaccine. Due on due Goal Dilated eye exam. Due on Jan due Goal Lipid panel. Due on due Goal Hemoglobin A1C. Due on due Goal Dental exam. Due on due Goal Urine microalbumin. Due on O due Goal Dental exam. Due on due Goal Hemoglobin A1C. Due on due Goal Lipid panel. Due on due Goal Dilated eye exam. Due on Jul due Goal Pneumococcal vaccine. Due on due Goal Foot exam. Due on 9 due Goal Urine microalbumin. Due on A due Goal Urine microalbumin. Due on due [...] on due Goal Lipid panel. Due on 019 due Goal Dilated eye exam. Due on [...] Foot exam. Due on 8 due Goal Urine microalbumin. Due on due Goal Dental exam. Due on due Goal Hemoglobin A1C. Due on due Goal Lipid panel. Due on due Goal Dilated eye exam. Due on Sep due Goal Pneumococcal vaccine. Due on due Goal Foot exam. Due on 8 due Goal Dental exam. Due on due Goal Urine microalbumin. Due on due Goal Pneumococcal vaccine. Due on due Goal Foot exam. Due on 8 due Goal Hemoglobin A1C. Due on due Goal Lipid panel. Due on due Goal Dilated eye exam. Due on August due Goal Urine microalbumin. Due on due Goal Dental exam. Due on due Goal Lipid panel. Due on due Goal Foot exam. Due on due Goal Pneumococcal vaccine. Due on due Goal Hemoglobin A1C. Due on due Goal Dilated eye exam. Due on August due Goal Foot exam. Due on due Goal Lipid panel. Due on due Goal Urine microalbumin. Due on A due Goal Dental exam. Due on due Goal Dilated eye exam. Due on Jul due Goal Pneumococcal vaccine. Due on due [...] Goal Pneumococcal vaccine. Due on due Goal Pneumococcal vaccine. Due [...] on due Goal Dental exam. Due on 018 due Goal Dilated eye exam. Due on [...] Foot exam. Due on 8 due Goal Lipid panel. Due on due Goal Dental exam. Due on due Goal Dilated eye exam. Due on May due Goal Lipid panel. Due on due Goal Pneumococcal vaccine. Due on due Goal Foot exam. Due on 8 due Goal Hemoglobin A1C. Due on due Goal Urine microalbumin. Due on due Goal Urine microalbumin. Due on due Goal Dilated eye exam. Due on Sep due Goal Foot exam. Due on 7 due Goal Lipid panel. Due on 017 due Goal Dental exam. Due on 017 due Goal Pneumococcal vaccine. Due on due Goal Lipid panel. Due on 017 due Goal Foot exam. Due on 7 due Goal Pneumococcal vaccine. Due on due Goal Dental exam. Due on 017 due Goal Dilated eye exam. Due on Sep due Goal Urine microalbumin. Due on due Goal Tobacco cessation counseling [...] establish care, she recently moved back to [place] from [place]. She is here taking care of her mother. She was seeing Sadie Fritz INSTRUMENTAL MUSIC TEACHER in [place], states she just had blood work done beginning of June before moving here. A1C today 9.0. Patient states she does not currently have insurance since moving here from [place] and was unable to get her medications [...]
--- OUTSIDE RECORDS SUMMARY | 2025-03-03 10:59 | XMS_ITS | Clinical Summary ---
Author Organization [facility] Address [address] [place], [place] [address] Care Team Providers Care Body Mechanic Name Role Phone Darrell Weinstein Primary Care Provider [phone] Nereida Castro MD Unavailable [phone] Allergies Active AllergyReactionsCriticalityNoted DateCommentsSulfa (Sulfonamide Antibiotics)Epvwyrjn63/30/2019 Medications MedicationSigDispense QuantityRefillsLast FilledStart DateEnd DateStatus cyanocobalamin [...] 1 applicatorful vaginally once daily for 7 hpcw933/10/2019Active insulin lispro sliding scale 1 (HUMALOG) Inject [...] Assessment: Current 40 pack year Encounters DateTypeDepartmentCare VlotZlkxhyfuhrt27/23/2025Telephone Cancer Appts [facility] [place] [address] Milly Cordoba MD 02/10/2025Lab Requisition [facility] [address] [place] [address] Milly Cordoba MD Person encountering health services to consult on behalf of another person 02/04/2025Telephone Cancer Appts [facility] [place] [address] Milly Cordoba MD from Last 3 Months Family History Medical HistoryRelationCommentsCancerFatherHeart diseaseFatherStrokeFatherHeart diseaseMotherHypertensionMotherStrokeMotherRelationStatusCommentsFatherDeceased Maternal GrandfatherDeceasedMaternal GrandmotherDeceasedMotherDeceasedPaternal GrandfatherDeceasedPaternal GrandmotherDeceased Social History Tobacco UseTypesPacks/DayYears UsedDateSmoking Tobacco: Every VgdDsnqmbyvjz762.8 Started: 1972Smokeless Tobacco: NeverAlcohol UseStandard Drinks/WeekCommentsNot Currently0 (1 standard drink = 0.6 oz pure alcohol)Area Deprivation IndexAnswer Date RecordedNational Score (1-100), lower number is lower riskNot on file 04/03/2020State Score (1-10), lower number is lower riskNot on file04/03/2020 Data from: https://www.neighborhoodatlas.[facility].edu/. Last address used for calculationNot on file04/03/2020CommentsNoSex and Gender Information ValueDate RecordedSex Assigned at BirthNot on fileLegal BfdNhboyy78/02/2012 10:19 AM ESTGender IdentityNot on fileSexual OrientationNot on file Last Filed Vital Signs Vital SignReadingTime TakenCommentsBlood Cazilhej343/6508 10:38 AM EDT Jdhyk3803 10:38 AM OLEOewslluygyc69.2 ??C (97.2 ??F)12/18/2019 10:38 AM EDTRespiratory Qpfu602212/18/2019 10:38 AM EDTOxygen Intmbxarkj56%12/18/2019 10:38 AM EDTInhaled Oxygen Concentration--Zoyazq15.4 kg (206 lb)12/18/2019 10:38 AM HCOVjisen902.2 cm (5' 7.01 )02/27/2019 11:07 AM EDTBody Mass Index32.26 02/27/2019 11:07 AM EDT Plan of Treatment DateTypeDepartmentCare Team (Latest Contact Info)Hnkolengois86/12/2025 11:00 AM ESTVisit (SP) Office Gynecology Oncology [address] [place] [address] [place] [address] Milly Cordoba MD [address] [place] [address] Other Specified noninflammatory disorders of vaginaHealth MaintenanceDue Date Last DoneCommentsAnxiety Fpakhqfju33/30/1976Depression Wazosqdpe87/30/1976 Hepatitis C Cafktlmce59/30/1976DTaP,Tdap,Td Vaccine (1 - Tdap)1976CT Peyjaxdhmboz10/30/2003Cologuard (FIT-DNA)11/25/20029771Tqatrceycib05/30/2003 Colorectal Cancer Jsmmxkzdk09/30/2003Fecal Occult Blood2002Lipid Screening 11/25/20029959Kzwgtobgcsajw72/30/2003Pneumococcal Vaccine: 50+ (1 of 1 - PCV) 11/26/2007Shingrix Vaccine (1 of 2)11/26/2007Mammogram Ebntydcil08/12/2022 06/10/2020, 05/11/2019, 05/11/2019, Additional history existsBone Density Enxzacbvx57/Advance Directive Ibcrczgdzs14/01/2025ovid-19 Vaccine ( - season)2024Influenza Vaccine (#1)2024Diabetes Cbmldxvgq03/17/353611/, 11/15/2023, 10/30/2023, Additional history exists RSV Vaccine (1 - 1-dose 75+ series)2032 Procedures Procedure NamePriorityDate/TimeAssociated DiagnosisCommentsEXTERNAL LAB 02/12/2025 8:39 AM EDT EXTERNAL LAB02/12/2025 8:39 AM EDT EXTERNAL LAB02/12/2025 8:39 AM EDT OUTSIDE SURG PATH SLIDE JACPHVXteuxnv96/15/2025 10:21 PM EDT Person encountering health services to consult on behalf of another person EXTERNAL LAB02/04/2025 2:41 PM EDT COMPREHENSIVE METABOLIC UHFARPufjgib13/21/2019 3:05 PM EDT Preop examination SONNY III [...] SignatureCase Report Surgical Pathology Report ? Case: [id number] ? Authorizing Provider: ??Milly Cordoba MD Collected: ? 02/10/2025 10:21 PM ? Ordering Location: ? [facility] ?Received: ?02/10/2025 10:19 PM ? [facility] ? Pathologist: ? Stacy Hassan MD ? Specimen: ?Slide(s), 2 SLIDES ([id number]) ? 02/11/2025 3:16 PM [facility] LABFINAL DIAGNOSISReview of outside slides Vulva, biopsy: Consistent with condyloma.02/11/2025 3:16 PM [facility] LAB at 1516 EDT Performing LabDiagnostic interpretation performed at: [facility], [address] [facility] [id number] CLIA# [id number] [place] Operator: Rudi Turner MD 02/11/2025 3:16 PM [facility] LABDisclaimerLaboratory Developed Test (LDT) Disclaimer: Performance characteristics of immunohistochemical, immunofluorescent, and chromogenic in-situ hybridization tests have been determined by the performing laboratory within the [facility] Department of Pathology and Laboratory Medicine ([facility], [facility], [facility], [facility], [facility], [facility], or [facility]) in a manner consistent with CLIA requirements. One or more of these tests may not have been cleared or approved by the FDA. The [facility] Department of Pathology and Laboratory Medicineis regulated under CLIA as qualified to perform high-complexity testing. These tests are used for clinical purposes. These should not be regarded as investigational or for research. Positive and negative controls stain appropriately.02/11/2025 3:16 PM EDT [facility] LABSpecimen (Source)Anatomical Location / Laterality Collection Method / VolumeCollection TimeReceived TimeBlocks or SlidesMICROSCOPE SLIDE / Vsoqfig9502/10/2025 10:21 PM EDT1 10:19 PM EDT Narrative Authorizing ProviderResult TypeResult StatusMichelnikolai Cordoba MDSURGICAL PATHOLOGYFinal ResultPerforming OrganizationAddressCity/State/ZIP CodePhone Number [place] [phone] [place] [address], * (ABNORMAL) COMP METABOLIC PANEL (12/17/2018 3:05 PM EDT)ComponentValueRef RangeTest MethodAnalysis TimePerformed AtPathologist SignatureProtein, Total 7.66.3 - 8.0 g/dL08/ 3:35 AM [facility] LaboratoriesAlbumin4.2 3.9 - 4.9 g/dL12/18/2018 3:35 AM [facility] XxjrmjdhklohDgfkiyg52.6 (H)8.5 - 10.2 mg/dL12/18/2018 3:35 AM [facility] Laboratories Bilirubin, Total0.30.2 - 1.3 mg/dL12/18/2018 3:35 AM [facility] LaboratoriesAlkaline Xgoqhfpeycc2672 - 123 U/L12/18/2018 3:35 AM [facility] XquazttdqapcMDD1415 - 35 U/L12/18/2018 3:35 AM [facility] YldihoymtwwfJufvmlj0580 - 99 mg/dL12/18/2018 3:35 AM [facility] LaboratoriesComment: The [place] Diabetes Association (ADA) provides guidance for cutoff [...] Standards of Medical Care in Diabetes 2016, [place] Diabetes Association. Diabetes Care. 2016.39(Suppl 1). XNX733 - 21 mg/dL12/18/2018 3:35 AM [facility] LaboratoriesCreatinine 0.730.58 - 0.96 mg/dL12/18/2018 3:35 AM [facility] LaboratoriesSodium 554014 - 144 mmol/L12/18/2018 3:35 AM [facility] LaboratoriesPotassium 4.43.7 - 5.1 mmol/L12/18/2018 3:35 AM [facility] LaboratoriesChloride 45929 - 105 mmol/L12/18/2018 3:35 AM [facility] XuiqzdiuhutqTI801(L)22 - 30 mmol/L12/18/2018 3:35 AM [facility] LaboratoriesAnion Eta701 - 18 mmol/L12/18/2018 3:35 [facility] KwmgfdmzfasnYBO810 - 38 U/L 12/18/2018 3:35 AM [facility] LaboratorieseGFR->60 12/18/2018 3:35 AM EDTCSt. [facility] LaboratorieseGFR-All Other Races>60. 12/18/2018 3:35 AM [facility] LaboratoriesComment: eGFR (Estimated GFR) Units of measure: [...] Fawad BRAYN.CNPLABORATORY Final ResultPerforming OrganizationAddressCity/State/ZIP CodePhone Number [facility] [address] [place] [address] [facility] [address] [place] [address] from Last 3 Months or Most Recently Relevant to Health Maintenance Insurance Care Teams Team MemberRelationshipSpecialtyStart DateEnd Date Darrell Weinstein [address] [facility] [address] [place] [phone] PCP - GeneralFamily Medicine11/06/18 Nereida Castro MD [address] [facility] [address] [place] [phone] ReferringObstetrics11/06/18
--- OUTSIDE RECORDS SUMMARY | 2025-03-03 10:59 | XMS_ITS | Encounter Summary ---
Author Organization [facility] Address [address] [place] [address] Care Team Providers Care Tipple Supervisor Name Role Phone Sandra Lewis DO Primary Care Provider [phone] Reason for Visit * ReasonCommentsMed Refill Encounter Details DateTypeDepartmentCare Team (Latest Contact Info)Mleydttljao30/02/2025Refill [facility] [address] [place] [phone] Luan Kincaid MD [address] [facility] [address] [place], [place] [id number] Neurogenic pain Social History Tobacco UseTypesPacks/DayYears UsedDateSmoking Tobacco: Every VlbBudpphmyxr704.8 Started: 1973Smokeless Tobacco: Current Comments:Smokes 11-20 cigs p er day Alcohol UseStandard Drinks/WeekCommentsNever0 (1 standard drink = 0.6 oz pure alcohol)caffeine intake: occasionalCommentsNoSex and Gender Information ValueDate RecordedSex Assigned at BirthNot on fileLegal XzlPinzzt83/15/2023 8:02 PM EDTGender IdentityNot on fileSexual OrientationNot on filedocumented as of this encounter Plan of Treatment DateTypeDepartmentCare Team (Latest Contact Info)Izsfhqvghev99/24/2026 4:00 PM EDTOffice Visit [facility] [address] [place] [address] Luan Kincaid MD [address] [facility] [address] [place] [address] 08/10/2025 1:15 PM EDTOffice Visit [facility] [address] [facility] [address] [place] [address] Nereida Castro MD [address] [facility] [address] [place] [address] documented as of this encounter Visit Diagnoses Diagnosis Neurogenic pain documented in this encounter Care Teams Team MemberRelationshipSpecialtyStart DateEnd Date Sandra Lewis DO [address] [facility] [place] [address] PCP - GeneralFamily Medicine10/15/24documented as of this encounter
--- OUTSIDE RECORDS SUMMARY | 2025-03-03 10:59 | XMS_ITS | Clinical Summary ---
Author Organization [facility] Address [address] [address] Care Team Providers Care Professor Of Psychiatry Name Role Phone Sanrda Lewis DO Primary Care Provider Allergies Active AllergyReactionsCriticalityNoted DateCommentsSulfa AntibioticsGI intolerance,Cusnjad2111/25/2018 Medications MedicationSigDispense QuantityRefillsLast FilledStart DateEnd DateStatus Continuous Blood Gluc Sensor ([employer]Style Brent 14 Day Sensor) [facility] apply 1 SENSOR as directed every 14 days use with DEVICE to MONIT... (REFER TO PRESCRIPTION NOTES).12/21/2022ctive Toujeo SoloStar 300 UNIT/ML injection inject 20 units subcutaneously as jkupetxg35/16/2023ctive Droplet Pen [place] 32G X 4 MM misc use 1 PEN NEEDLE to inject MEDICATION subcutaneously five times a day02/19/2022 Active omeprazole (PriLOSEC) [address] capsule 01/02/2023ctive Ozempic, 1 MG/DOSE, 4 MG/3ML solution pen-injector Administer 1mg subcutaneously once zbuwrx5612/10/2022ctive simvastatin (Zocor) 40 MG tablet Take 40 mg by mouth at mfzxlsh2712/04/2022ctive Jardiance 25 MG take 1 tablet orally [...] mg) by mouth at bedtime 30 capsule 5Active sertraline (Zoloft) 50 MG tablet Take 50 mg by mouth Daily5Active pregabalin (Lyrica) 300 MG capsule Indications:Neurogenic painTAKE 1 CAPSULE BY MOUTH TWICE A DAY 180 capsule 5Active pregabalin (Lyrica) 300 MG capsule Indications:Neurogenic painTAKE 1 CAPSULE BY MOUTH TWICE A DAY 60 capsule Discontinued terconazole (Terazol 7) 0.4 % vaginal cream Indications:Vaginal yeast infectionInsert 1 applicator into the vagina at bedtime for 7 days 45 g Expired Active Problems ProblemNoted DateDiagnosed DateWeakness of both lower mpjuutrzdfw54/10/2025 Overview (10/06/2024): --- multifactorial, including PN G62.9, [...] redo spinal surgery consult. TIA (transient ischemic attack)05/13/20244642Tzsbqmezdtogyg25/10/2024 Assessment & Plan (04/07/2024 2:16 PM EST): Consult haematology. Cognitive yfwzzmm5002/25/2024 Assessment & Plan (01/19/2025 4:35 PM EDT): (Continue current regimen.) Assessment & Plan (10/06/2024 2:30 PM EDT): (Continue current regimen.) Assessment & Plan (07/21/2024 3:08 PM EDT): (Continue current regimen.) Get [facility] records - neuro consults, EEG, MR, carotids, echo, discharge summary. Assessment & Plan (04/07/2024 2:16 PM EST): Pt to retry donepezil 15 qam (or 10/5). Assessment & Plan (02/25/2024 2:59 PM EDT): Add memantine 10 -> bid. Then add donepezil 10, titrate. Handout. Get MR images transferred to [facility] PACS for my review. 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 Assessment & Plan (01/19/2025 4:35 PM EDT): (Continue avoiding compression.) Assessment & Plan (10/06/2024 2:30 PM EDT): (Continue avoiding compression.) Assessment & Plan (07/21/2024 3:08 PM EDT): (Avoid compression.) Assessment & Plan (04/07/2024 2:16 PM EST): PO cqibxmyy64/02/2024 Assessment & Plan (02/25/2024 2:43 PM EDT): Get Dr. Gonzalez's note (2nd request). Assessment & Plan (01/07/2024 1:44 PM EDT): Get rheum note. Assessment & Plan (12/12/2023 2:49 PM EDT): Consult Drs. Vang/Lisa - PO positive, titer increasing, but subtests neg. Known peripheral neuropathy, worsening. Get full set of labs ([facility]). We have some but not [...] will need neurosurgery consult. Adverse effect of alpha-uavhlfniyb36/02/2024Vitamin E irqldeivqb21/02/2024 Assessment & Plan (11/29/2023 3:06 PM EDT): Add MVI (for Vitamin E). Or if already on MVI, add Vit E separately, 2/week. Chronic low back pain without syzvchbm22/10/3957Bzjghxrfxyp65/10/2024Cervical paraspinal muscle spasm10/29/2023 Assessment & Plan (01/19/2025 [...] to neck as well.) Carpal tunnel syndrome, nauymhqtf73/02/2024 Overview (10/06/2024): --- causing hand weakness R29.898. [...] 3:21 PM EDT): Restart splint use. [facility] GLORIA. (2nd) Tofxlmvxoovqty02/02/2024 Assessment & Plan (11/29/2023 3:06 PM EDT): Pt reports 2nd PO is high 1:320 but I don't see it in the labs. Let's make sure we get this. May need rheumatology consult. Neuropathy panel II. Assessment & Plan (10/29/2023 3:17 PM EDT): Redo neurop panel. Diabetic peripheral ejfarqaxdh24/02/4562O56 owzofwqnbf47/02/2024 Assessment & Plan (01/19/2025 4:35 PM EDT): [...] are drawn. Redo B12 panel 8 w. Yqnoqxanhnmm35/02/2024Lumbar paraspinal muscle spasm10/29/2023 Assessment & Plan (01/07/2024 [...] 3:18 PM EDT): Myopathy panel. Leg pain, gwiodtres06/02/2024 Assessment & Plan (10/29/2023 3:20 PM EDT): XR L-s 6 v. [facility] BLE. (First) Resolved Problems ProblemNoted DateDiagnosed DateResolved DateOSA (obstructive sleep apnea) Encounters DateTypeDepartmentCare TdfdUgdswgirixt62/02/2025Refill [facility] [address] [facility] [address] [place] [address] Luan Kincaid MD Neurogenic pain02/18/2025Telephone [facility] [place] [facility] [address] [place] [address] Nereida Castro MD Biopsy (Appt needed )02/09/2025 12:30 PM EDTOffice Visit [facility] [place] [facility] [address] [place] [address] Nereida Castro MD Encounter for gynecological examination; Vaginal rbbcdo8302/09/20253799Wwkgbm69/14/2025Results Follow-Up [facility] [place] [facility] [address] [place] [address] Nereida Castro MD MISCELLANEOUS SMEAR XEDJCVWX01/09/2025Results Follow-Up [facility] [place] [facility] [address] [place] [address] Nereida Castro MD Pathology Report, IGP, APT HPV,RFX 16/18,45, HPV Genotypes 16/18,45 Reflex 02/02/2025 1:30 PM EDTOffice Visit [facility] [place] [facility] [address] [place] [address] Nereida Castro MD Encounter for gynecological examination; Vaginal lesion; Encounter for gynecological examination without abnormal finding; Encounter for screening for cervical cancer; Breast cancer screening by xpawfmmjx76/07/2025Orders Only [facility] External Department Unsolicited Nereida Castro MD 02/02/20255949Jbtgwr73/30/2025Telephone [facility] [place] [facility] [address] [place] [address] Nereida Castro MD 01/19/2025 4:00 PM EDTOffice Visit [facility] [address] [facility] [address] [place] [address] Luan Kincaid MD Weakness of both lower extremities (Primary Dx); Carpal tunnel syndrome, bilateral; Cognitive decline; Cervical paraspinal muscle spasm; B12 deficiency; Guyon syndrome, unspecified ivmxctdkbv94/23/2025amboo flowsheet [facility] [address] [place] [address] Luan Kincaid MD 01/19/20251358Iwuahe28/04/2025 4:00 PM EDTAncillary Procedure [facility] [address] [facility] [address] [place] [address] Lumbosacral radiculopathy at L5; Weakness of both lower extremities; Leg pain, ihqfnyddw14/04/7238Ksdepw47/22/2025 1:15 PM EDTProcedure Visit [facility] [address] [facility] [address] [place] [address] Luan Kincaid MD Numbness (Primary Dx); Paresthesias; Pain in both lower extremities; Lumbosacral radiculopathy at L512/18/2024Orders Only [facility] [address] [facility] [address] [place] [address] Luan Kincaid MD Lumbosacral radiculopathy at L5; Weakness of both lower extremities; Leg pain, symjwdbfx26/22/6744Kadetw12/15/2025 1:15 PM EDTProcedure Visit [facility] [address] [place] [address] Luan Kincaid MD Hand weakness (Primary Dx); Carpal tunnel syndrome, oejofgmon44/15/2025Travelfrom Last 3 Months Family History Medical HistoryRelationNameCommentsMental illnessDaughterCancerFatherHeart diseaseFatherStrokeFatherHeart diseaseMotherHypertensionMotherStrokeMother DiabetesSiblingBipolar disorderSister 1DiabetesSonRelationNameStatusComments Brother 1AliveBrother 2AliveDaughterAliveFatherDeceasedMaternal Grandfather DeceasedMaternal GrandmotherDeceasedMotherDeceasedPaternal GrandfatherDeceased Paternal GrandmotherDeceasedSiblingAliveSister 1AliveSister 2AliveSonAlive Social History Tobacco UseTypesPacks/DayYears UsedDateSmoking Tobacco: Every OfeZehegsxgim211.8 Started: 1973Smokeless Tobacco: Current Tobacco Cessation:Ready to Q uit: Not Asked; Counseling Given: Not Answered Comments:Smokes 11-20 cigs per day Alcohol UseStandard Drinks/WeekCommentsNever0 (1 standard drink = 0.6 oz pure alcohol)caffeine intake: occasionalCommentsNoSex and Gender Information ValueDate RecordedSex Assigned at BirthNot on fileLegal UhgFtwiyh05/15/2023 8:02 PM EDTGender IdentityNot on fileSexual OrientationNot on file Last Filed Vital Signs Vital SignReadingTime TakenCommentsBlood Kqeqkwka086/7410 12:41 PM EDT Yowjh512702/25/2024 1:55 PM EDTTemperature--Respiratory Rate--Oxygen Saturation-- Inhaled Oxygen Concentration--Zooywn85 kg (194 lb)02/09/2025 12:41 PM EDTHeight 170.2 cm (5' 7 )02/02/2025 1:19 PM EDTBody Mass Index30.381 1:19 PM EDT Plan of Treatment DateTypeDepartmentCare Team (Latest Contact Info)Bphjumwemwq80/24/2026 4:00 PM EDTOffice Visit [facility] [address] [place] [address] Luan Kincaid MD [address] [facility] [address] [place] [address] 08/10/2025 1:15 PM EDTOffice Visit [facility] [address] [place] [address] Nereida Castro MD [address] [place] [address] Procedures Procedure NamePriorityDate/TimeAssociated DiagnosisCommentsPATHOLOGY REPORT Ruubbic3302/02/2025 2:47 PM EDT Vaginal lesion HPV GENOTYPES 16/18,45 KNHIHFLqryrnu03/07/2025 12:00 AM EDT MISCELLANEOUS SMEAR XHUMWNTHVvymsvr78/07/2025 12:00 AM EDT IGP, APT HPV,RFX 16/18,27Lmpxrlw62/07/2025 12:00 AM EDT Encounter for gynecological examination without abnormal finding Encounter for screening for cervical cancer MR LUMBAR SPINE WO ESKRSYFBEhffhxj78/04/2025 4:24 PM EDT Lumbosacral radiculopathy at L5 Weakness of both lower extremities Leg pain, bilateral from Last 3 Months Results * Pathology Report (02/02/2025 2:47 PM EDT)ComponentValueRef RangeTest Method Analysis TimePerformed AtPathologist SignatureMaterial Submitted:Comment [facility]PComment: Material submitted: ?. vulva - VULVA Clinician Provided KOK41HomasnfZONHCBDYcnoxjq: Clinician provided ICD-10: N89.8 Diagnosis:CommentLABCORPComment: Diagnosis: VULVA, [...] CASSETTE. MZH/BXS ??02/03/2025 ??1504 Local Pathologist Provided JCN60NosyxeoTBRKWGXJhsqlxi: Pathologist provided ICD-10: N90.89 CPTCommentLABCORPComment: CPT ?. 174625 Specimen (Source)Anatomical Location / LateralityCollection Method / Volume Collection TimeReceived TimeOtherTopography unknown / Onmkfqp3502/02/2025 2:47 PM EDT1omment:Other Vulva Print requ Narrative [facility] - 02/04/2025 10:07 AM EDT Performed at: 01 - [facility] [address] [place] [address] ??[id number] Middle School Tutor: Kemar Bella MD, Phone: ??[phone] Performed at: ??02 - [address] ??[id number] Middle School Tutor: Jason Nation MD, Phone: ??[phone] Performed at: ??03 - [facility] [address] [place] [address] ??[id number] Middle School Tutor: Kemar Bella MD, Phone: ??[phone] Specimen Comment: [id number] Specimen Comment: No. of containers..01 Tissue Authorizing [...] by:CommentLABCORPComment:Eldon Madera MD, PathologistPerformed by:Comment [facility]ORPComment:Carmelita Reese, Small Products I Assembler (ASC)Gross description:Comment [facility]PComment: 20ML, LT WHITE, CLOUDY /LCS ??02/05/2025 ??0740 Local Specimen (Source)Anatomical Location / LateralityCollection Method / Volume Collection TimeReceived Time Narrative [facility] - 02/08/2025 1:07 PM EDT Performed at: 01 - [facility] [place] ??[id number] Middle School Tutor: Savi Cai MD, Phone: ??[phone] Specimen Comment: No. of containers..01 ThinPrep Vial [...] ICD10:CommentL[facility]ORP Comment: Z01.419 Z12.4 Performed By:CommentLABCORPComment:Jolly Kennedy, Small Products I Assembler (ASCP) Electronically Signed By:CommentLABCORPComment:Valery Varela MD, Pathologist [...] ThinPrep(R) pap test was interpreted using the QuesCom(R) Genius(TM) Cervical Algorithm whole slide imaging system. HPV AptimaPositive(A)NegativeLABCORPComment: This nucleic acid amplification test detects fourteen high-risk HPV types (16,18,31,33,35,39,45,51,52,56,58,59,66,68) without differentiation. Specimen (Source)Anatomical Location / LateralityCollection Method / Volume Collection TimeReceived TimeVaginal Fluid Narrative [facility] - 02/08/2025 8:07 PM EDT Performed at: - [address] ??[id number] Middle School Tutor: Savi Cai MD, Phone: ??[phone] Performed at: ??02 - [facility] ??[id number] Middle School Tutor: Savi Cai MD, Phone: ??[phone] Specimen Comment: Source.............Cervix Specimen Comment: No. of containers..01 ThinPrep Vial Authorizing ProviderResult TypeResult StatusNereida THOMAS BLOOD ORDERABLESFinal ResultPerforming OrganizationAddressCity/State/ZIP CodePhone Number [facility] * (ABNORMAL) HPV Genotypes 16/18,45 Reflex (02/02/2025 12:00 AM EDT)Component ValueRef RangeTest MethodAnalysis TimePerformed AtPathologist SignatureHPV Genotype 16Positive(A)NegativeLABCORPHPV Genotype 18,45NegativeNegativeLABCORP Specimen (Source)Anatomical Location / LateralityCollection Method / Volume Collection TimeReceived Time Narrative [facility] - 02/08/2025 8:07 PM EDT Performed at: 02 - [facility] [address] ??[id number] Middle School Tutor: Savi Cai MD, Phone: ??[phone] Authorizing ProviderResult TypeResult StatusNereida THOMAS CYTOLOGY ORDERABLESFinal [...] stability. ELECTRONICALLY SIGNED BY: Almas Reeves DO Authoryoan ProviderResult TypeResult StatusMark D Bej MDIMG MRI PROCEDURESFinal Result from Last 3 Months Insurance Care Teams Team MemberRelationshipSpecialtyStart DateEnd Date Sandra Lewis DO [address] [facility] [place] [phone] PCP - GeneralFamily Medicine10/15/24
--- OUTSIDE RECORDS SUMMARY | 2025-03-03 10:59 | XMS_ITS | Patient Health Record ---
Author Organization [facility] Address [address] [place] [address] Care Team Providers Care Deck Lid Fitter Name Role Phone Dr. Edgar Garcia Primary Care Provider Reason For Referral No Information Plan Of Treatment No Information Insurance Providers Payer Name Payer Address Payer Phone Subscriber Number Group Number Insured Name Patient Relationship to Insured Coverage Start Date Coverage End Date MEDICARE CGS [address] [place] [address] [id number] Rm MARCOS - patient is the [id number] 2020MEDICAID SEC TO [facility] [address] [place] [id number], CINDYSelf - patient is the [id number] 2020ENTAL MEDICAID [place] [address] [place] [address] [phone], CINDYSelf - patient is the [id number] 2020
--- OUTSIDE RECORDS SUMMARY | 2025-03-03 10:59 | XMS_ITS | Clinical Summary ---
Author Organization [facility] Address [address] [place] [address] Phone Care Team Providers Care Tiltrotor Crew Chief Name Role Phone Shantel Norton APRN-CONSULTING NURSE Primary Care Pro vider Allergies Active AllergyReactionsCriticalityNoted DateCommentsSulfa (Sulfonamide Antibiotics)GI intolerance,Unknown,Nausea/gfibyfan72/30/2019 Medications MedicationSigDispense QuantityRefillsLast FilledStart DateEnd DateStatus semaglutide [...] Problems ProblemNoted DateDiagnosed DateObesity (BMI 30-39.9)12/16/2023Typical atrial uzgspif0510/07/2023Nonischemic egtfnaxlarpegb13/10/5521Qcogoiur57/21/2024 Overview (09/17/2023): Last Assessment & Plan: Assessment: on Actos, metformin and Humalog. States BG in Am 110-140, Last A1C- 6.5 Kimnyhyfmmbuwzsmny47/21/2024 Overview (09/17/2023): Last Assessment & Plan: Assessment: on statin Xhjvhujxkjva58/21/2024 Overview (09/17/2023): Last Assessment & Plan: Assessment: controlled on Lisinopril Current bqcrfv7909/17/2023 Overview (09/17/2023): Last Assessment & Plan: Assessment: Current 40 pack year Resolved Problems ProblemNoted DateDiagnosed DateResolved DateHigh risk medication use11/13/2023 12/30/2024MI 28.0-28.9,adult/ Encounters DateTypeDepartmentCare TpfgGyygmgyfure87/16/2025Refill [address] [phone] Roland Faust MD Hypertension, unspecified type; Nonischemic cardiomyopathy (Multi)12/30/2024 1:40 PM EDTOffice Visit [address] [phone] Roland Faust MD Typical atrial flutter (Multi) (Primary Dx); Nonischemic cardiomyopathy (Multi); Hypertension, unspecified type; Hypercholesteremia; Obesity (BMI 30-39.9); Current smoker Discharge Disposition: Home12/30/2024Travelfrom Last 3 Months Family History Medical HistoryRelationNameCommentscabgFatherHeart failureMotherheart stent MotherRelationNameStatusCommentsFatherMother Social History Tobacco UseTypesPacks/DayYears UsedDateSmoking Tobacco: Every DayCigarettes Smokeless Tobacco: Never Tobacco Cessation:Ready to Q uit: No; Counseling Given: Yes Alcohol UseStandard Drinks/WeekCommentsNever0 (1 standard drink = 0.6 oz pure alcohol)CommentsUnknownSex and Gender InformationValueDate RecordedSex Assigned at BirthNot on fileLegal MicSbtqyt56/02/2023 3:01 AM EDTGender Identity Not on fileSexual OrientationNot on file Last Filed Vital Signs Vital SignReadingTime TakenCommentsBlood Hclceotz520/7009 1:47 PM EDT Rzyzp0330/03/2025 1:47 PM EDTTemperature--Respiratory Rate--Oxygen Saturation-- Inhaled Oxygen Concentration--Kfilgk78.4 kg (197 lb)12/30/2024 1:47 PM EDTHeight 170.2 cm (5' 7 )12/30/2024 1:47 PM EDTBody Mass Index30.85012/30/2024 1:47 PM EDT Plan of Treatment DateTypeDepartmentCare Team (Latest Contact Info)Tigmqsrlurv10/21/2026 3:10 PM EDTOffice Visit [facility] [address] [facility] [address] [place] [address] Roland Faust MD [address] [facility] [address] [place] [address] Health MaintenanceDue DateLast DoneCommentsCT Hxwgkzjobkzf63/30/1958Colonoscopy 1957Colorectal Cancer Xvmvomkpy71/30/1958Diabetes: Hemoglobin A1C 1957Diabetes: Urine Protein Zrumllfnd19/30/1958FIT-DNA (Cologuard) 1957FIT1957Lipid Panel1957Medicare Annual Wellness Visit (AWV) 1957 7984Xbfahdtrardeg89/30/1958Diabetes: Retinopathy Ebxmmfzxk02/30/1968 Hepatitis C Wmwptouze63/30/1976Pneumococcal Vaccine (1 of 2 - PCV)1976 DTaP/Tdap/Td Vaccines (1 - Tdap)11/26/1979RSV High Risk: (Elderly (60+) or Population) (1 - Risk 50-74 years 1-dose series)11/26/2007Zoster Vaccines (1 of 2)11/26/20075641Vhpjwbyfk04/12/202202/one Density Scan 2022TSH Level/06/2023Influenza Vaccine (#1)5COVID-19 Vaccine ( season)2024MMR RpfdjixyOfkwwvpyb81/05/2002HIB VaccinesAged OutNo longer eligible based on patient's [...] Teams Team MemberRelationshipSpecialtyStart DateEnd Date Shantel Norton APRN-CONSULTING NURSE [address] [place] [address] PCP - GeneralFamily Medicine12/30/24
--- OUTSIDE RECORDS SUMMARY | 2025-03-03 11:00 | XMS_ITS | Encounter Summary ---
Author Organization [facility] Address [address] [place], [place] [address] Care Team Providers Care Technical Support Assistant Name Role Phone Darrell Weinstein Yao Primary Care Provider [phone] Nereida Castro MD Unavailable [phone] Source Comments In the event this information is protected by the Federal Confidentiality of Alcohol and Drug AbusePatient Records regulations: The Federal rules restrict any use of the information to criminally investigate or prosecute any alcohol or drug abuse patient.[facility] Encounter Details DateTypeDepartmentCare Team (Latest Contact Info)Ngoyrduqlqh98/23/2025Telephone Cancer Appts [address] [place] [address] Milly Cordoba MD [address] [place], [place] [phone] Social History Tobacco UseTypesPacks/DayYears UsedDateSmoking Tobacco: Every LwuDznfvojsws676.8 Started: 1972Smokeless Tobacco: NeverAlcohol UseStandard Drinks/WeekCommentsNot Currently0 (1 standard drink = 0.6 oz pure alcohol)Area Deprivation IndexAnswer Date RecordedNational Score (1-100), lower number is lower riskNot on file 04/03/2020State Score (1-10), lower number is lower riskNot on file04/03/2020 Data from: https://www.neighborhoodatlas.[facility]/. Last address used for calculationNot on file04/03/2020CommentsNoSex and Gender Information ValueDate RecordedSex Assigned at BirthNot on fileLegal XalTslyvn26/02/2012 10:19 AM ESTGender IdentityNot on fileSexual OrientationNot on filedocumented as of this encounter Miscellaneous Notes * Telephone Encounter - Sarah Vizcaino - 03/03/2025 8:54 AM EST Talat Iqbal, I am not in the office on Tuesdays, that is why I am just getting back to you today on this. I called Dr Castro office and spoke with Summer. Summer states they have been unable to reach patient. Their office has left several messages for patient to call their office back to get scheduled. Per Summer their last attempt to reach pt/message left was yesterday 03/02. Patient does not have any appointments currently scheduled at their office at this time. Thank you, Sarah Kennedy * Telephone Encounter - Sarah Vizcaino - 02/18/2025 10:34 AM EDT I called Dr Castro office [phone] and spoke with Yeny. Summer states she will send Dr Castro amessage re: our call per Farida SCHRADER patient needs Colposcopy with biopsy and would [...] date of procedure. I gave Summer our [place] office phone number to call back with any updates and also provided her with Dr Cordoba Marshall [phone] Castro to call [...] Thanks! Shantel ----- Message ----- From: Farida Sinclair, NITZA.BEHAVIORAL MODIFICATION ASSISTANT Sent: 02/17/2025 12:43 PM EDT To: Shantel Gutierrez [facility] Thanks, so the plot thickens. The [...] results. ----- Message ----- From: Farida Sinclair, NITZA.BEHAVIORAL MODIFICATION ASSISTANT Sent: 02/11/2025 3:41 PM EDT To: Milly Cordoba MD; Shantel Gutierrez # Hi all, path review back, patient just has benign warts. However I don't see a pap result from thatvis, am I missing it? 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 She might need something with her cervix. Can we please get her pap? If everything is normal she doesn't need us unless Dr. Castro needs surgical help. Thanks. Farida documented in this encounter Plan of Treatment DateTypeDepartmentCare Team (Latest Contact Info)Yahpxtblktx07/12/2025 11:00 AM ESTVisit (SP) Office Gynecology Oncology [address] [place] [address] [place] [address] Milly Cordoba MD [address] [place] [address] Other Specified noninflammatory disorders of vaginadocumented as of this encounter Visit Diagnoses Not on filedocumented in this encounter Care Teams Team MemberRelationshipSpecialtyStart DateEnd Date Darrell Weinstein [address] [place] [phone] PCP - GeneralFamily Medicine11/06/18 Nereida Castro MD [address] [facility] [address] [place] [phone] ReferringObstetrics11/06/18documented as of this encounter
--- OUTSIDE RECORDS SUMMARY | 2025-03-03 11:00 | XMS_ITS | Encounter Summary ---
Author Organization [facility] Address [address] [place] [address] Care Team Providers Care Fashion Show Director Name Role Phone Sandra Lewis DO Primary Care Provider [phone] Reason for Visit * ReasonOnset SwxeWqljjvizDtvbas46/23/2025ppt needed Encounter Details DateTypeDepartmentCare Team (Latest Contact Info)Wiplehhperh89/23/2025Telephone [facility] [address] [facility] [address] [place] [phone] Nereida Castro MD [address] [facility] [address] [place] [address] Biopsy (Appt needed ) Social History Tobacco UseTypesPacks/DayYears UsedDateSmoking Tobacco: Every BzgTahrbgrvlg279.8 Started: 1973Smokeless Tobacco: Current Comments:Smokes 11-20 cigs p er day Alcohol UseStandard Drinks/WeekCommentsNever0 (1 standard drink = 0.6 oz pure alcohol)caffeine intake: occasionalCommentsNoSex and Gender Information ValueDate RecordedSex Assigned at BirthNot on fileLegal IepMwvtrk19/15/2023 8:02 PM EDTGender IdentityNot on fileSexual OrientationNot [...] Le - 02/18/2025 10:33 AM EDT [facility]. Patient was referred over to [...] when the patient is scheduled here at [phone]. If we have any questions we can call 's nurse at [phone]. documented in this encounter Plan of Treatment DateTypeDepartmentCare Team (Latest Contact Info)Ymkgzcjdfdh56/24/2026 4:00 PM EDTOffice Visit [facility] [address] [facility] [address] [place] [address] Luan Kincaid MD [address] [facility] [address] [place] [address] 08/10/2025 1:15 PM EDTOffice Visit [facility] [address] [facility] [address] [place] [address] Nereida Castro MD [address] [facility] [address] [place] [address] documented as of this encounter Visit Diagnoses Not on filedocumented in this encounter Care Teams Team MemberRelationshipSpecialtyStart DateEnd Date Sandra Lewis DO [address] [facility] [place] [id number] PCP - GeneralFamily Medicine10/15/24documented as of this encounter
--- OUTSIDE RECORDS SUMMARY | 2025-03-03 11:11 | XMS_ITS | CCD ---
Author Organization [facility] Care Team Providers Care Supervisor Beehive Kiln Name Role Phone MATTHEW VOSS MD Unavailable [...] Other Provider MD Wilmer Vance Attending Provider [phone] DO Jonas Yoder Primary Care Provider NO FAMILY, PHYSICIAN Primary Care Provider Unava ilable DO Rl Villavicencio Emergency Provider [phone] Francesca Santos Attending Unavailable ARLEEN STEPHEN Referring Unavailable Teresa Strong Attending Unavailable ARLEEN STEPHEN Referring Unavailable Teresa Strong Attending Unavailable Teresa Strong Attending Unavailable Sandra Keita Unavailable Tolu Salinas Unavailable DO Sandra Keita Primary Care Provider [phone] DO Sandra Keita Attending Provider Reyna Dallas Unavailable Brayden Noble Unavailable [phone] DO Jonas Yoder Primary Care Provider NITZA Russell Attending Provider Keita, Sandra A Primary Care Provider Keita, DO Sandra A Attending Provider [phone] Keita, DO Sandra A Primary Care Provider Keita, DO Sandra A Attending Provider NITZA Russell Attending Provider DO Edgar Valenzuela Emergency Provider MD Elva Florian Admit Provider [phone] MD Elva Florian Attending Provider BRENDA Paz Marli Other Provider Unavailable DO Elly Yoo Other Provider MD Ric Lamar Other Provider MD Jonas Ch Other Provider MD Roland Faust Other Provider MD Manjit Barbosa Other Provider NITZA Fritz Other Provider MD Stephanie Stoll Other Provider MD Jann Kaplan Naaretha Other Provider MD Cara Tenorio Other Provider Fidel [facility]- Elizabeth Samayoa Other Provider MD Ashley Cheatham Other Provider Debbie BONNER, Sandra A Primary Care Provider DO Debbie Sandra A Primary Care Provider MD Oz Kincaid Attending Provider MD Jonas Ch Attending Provider DO Rl Villavicencio Emergency Provider DO Jluis Campos Admit Provider [phone] DO Jluis Campos Attending Provider Saranya Wright Other Provider Unavailable Fay, PhD Cash Other Provider DO Jelly Tuttle Other Provider MD John Murillo Other Provider DO Lit Clark Other Provider Dar, [facility] Dayana Other Provider DO Roque Isidro Other Provider NITZA Calvo Other Provider CHERYL Medina Other Provider Patrice SURVIVAL EQUIPMENT REPAIRER-CASHIER [employer]-C Jeanine E Other Provider MD Chaka Frye Attending Provider [phone] DO Rl Villavicencio Emergency Provider DO Jluis Campos Admit Provider Saranya Wright Other Provider Unavailable Fay, PhD Cash Other Provider DO Jelly Tuttle Other Provider MD John Murillo Other Provider DO Lit Clark Other Provider Dar [facility] Dayana Other Provider DO Roque Isidro Other Provider NITZA Calvo Other Provider CHERYL Medina Other Provider Patrice SURVIVAL EQUIPMENT REPAIRERCASHIER COURTESY BOOTH-C Jeanine E Other Provider MD Chaka Frye Attending Provider NITZA Salinas Referring Provider [phone] Keita, DO Sandra A Primary Care Provider MD Jonas Ch Referring Provider MD Roland Faust Attending Provider BARRIE Fritz Attending Provider Keita DO, Sandra Primary Care Provider Keita, DO Sandra A Primary Care Provider MD Oz Kincaid Attending Provider Keita DO, Sandra A Primary Care Provider Manjit Gleason MD Attending Provider Rl Villavicencio DO Emergency Provider Wesley Villafuerte PA-C Emergency Provider [phone] Jori Hearn DO Admit Provider Jori Hearn DO Attending Provider Priscilla Lang MD Attending Provider [phone] Lit Clark DO Other Provider Keita [...] Provider Priscilla Lang MD Attending Provider Amber DOLit Other Provider Keita DO, Sandra A Attending Provider Roland Faust MD Attending Provider Angelique Russell APRN Other Provider Nataliya Jane APRN Attending Provider Oz Kincaid MD Referring Provider [phone] Deneen Frost PA-C Attending Provider Keita DO, Sandra A Primary Care Provider Keita DO, Sandra A Primary Care Provider Rosibel VARGAS, Manjit Attending Provider Keita DO, Sandra A Primary Care Provider Keita DO, Sandra Primary Care Provider Keita DO, Sandra Primary Care Provider Monico VARGAS, Andrius Doss Attending Unavailable Monico VARGAS, Andrius Vytautjing Attending Unavailable Keita DO, Sandra A Primary Care Provider Yvonne GODDARD, Angelique Best Attending Provider Keita DO, Sandra A Attending Provider Edgar Eden DO Attending Provider Rosibel VARGAS, Imad Other Provider Samm Medina MD Attending Provider Keita DO, Sandra A Referring Provider NO FAMILY, PHYSICIAN Primary Care Provider Karl Vazquez DPM Attending Provider Shantel Norton APRN Primary Care Provider Shantel Norton APRN Attending Provider Rohrbacher SURVIVAL EQUIPMENT REPAIRER-FISHER TERRAPIN, Shantel A Primary Care Pro vider TRABJOE GOTTIF Attending Unavailable TRABOULSSI, MOURHAF Referring Unavailable ROHRBACHER, SHANTEL A Primary Care Unavailab le TRABOULSSI, MOURHAF Attending Unavailable TRABOULSSI, MOURHAF Referring Unavailable KEITA, SANDRA A Primary Care Unavailable TRABOULTWANI, MOGAYHAF Attending Unavailable JONAS CH Referring Unavailable KEITA, SANDRA A Primary Care Unavailable Adam VARGAS, Samm Ferreira Attending Provider Samm Medina MD Other Provider Angelique Russell APRN Attending Provider [phone] Keita, Sandra A Primary Care Unavailable Tray Nava Admitting Unavailabl e Tray Nava Attending Unavailabl e Keita, Sandra A Primary Care Unavailable Asaad, Imad Admitting Unavailable Asaad, Imad Attending Unavailable Keita, Sandra A Primary Care Unavailable Asaad, Imad Admitting Unavailable Asaad, Imad Attending Unavailable Deneen Frost Admitting Unavailable GrechDeneen coe Attending Unavailable Keita, Sandra A Primary Care Unavailable Rl Villavicencio Admitting Unavailable Rl Villavicencio Attending Unavailable Oz Kincaid Referring Unavailable Keita, Sandra A Primary Care Unavailable Nataliya Jane Admitting Unavail able Nataliya Jane Attending Unavail able EllisrbacherShantel Attending Unavailable Rohrbacher, Shantel Admitting Unavailable Ellisrbacher, Shantel Primary Care Unavailable Samm Medina Admitting Unavailable Samm Medina Attending Unavailable Ashleyacher, Shantel Primary Care Unavailable Karl Fritz Admitting Unavailable Karl Fritz Attending Unavailable Angelique Russell Consulting Unavailable Traboulssi, Mourhaf Admitting Unavailable Traboulssi, Mourhaf Attending Unavailable Keita, Sandra A Primary Care Unavailable Keita, Sandra A Primary Care Unavailable Keita, Sandra A Attending Unavailable Keita, Sandra A Admitting Unavailable Lit Clark Consulting Unavailab Jori Carvalho Admitting Unavailable Keita, Sandra A Primary Care Unavailable Priscilla Lang Attending Unavailable Sandra Keita DO Primary Care Provider OZ KINCAID Attending Unavailable OZ KINCAID [...] OnsetReaction(s) Facility (20 sources)Sulfamethoxazole; Translations: [sulfamethoxazole]Drug Allergy 34-73-1273HrtsohjUfyrdyNew[facility] (18 sources)Sulfonamides (Antibiotic); Translations: [SULFA (SULFONAMIDE ANTIBIOTICS)]Allergy to nesmsduve55-44-9893EQ intolerance, Unknown, Nausea/vomitingD[facility] ([facility] sources)Sulfonamides (Antibiotic)Drug Fnyixsb76-91-0831JS intolerance, UnknownHannibal [facility] (3 sources)pioglitazone; Translations: [pioglitazone]Drug Jsqrpdk04-55-6176xlnOhio Valley Hospital Medications Current Medications MedicationDrug Class(es)DatesSig (Normalized)Sig (Original)3 ML semaglutide 1.34 MG/ML Pen Injector [Ozempic] (20 sources)Start: 41-06-8818ppbcmh 0.5 mg by subcutaneous injection every week Ozempic (1 MG/DOSE) 4 MG/3ML 1mg Subcutaneous once weekly for 28 days Stop ozempic 0.5mg dose Feb, Activeinject 1 mg by subcutaneous injection every weekOzempic (1 MG/DOSE) 4 MG/3ML 1mg Subcutaneous once weekly for 28 days Activeapixaban 5 mg oral tablet (20 sources)Factor Xa InhibitorStart: 07-08-2024 End: 70-06-7288wiqb 1 tablet by mouth twice dailyStart: 09-14-2023 End: 69-01-0043cjqe 1 tablet by mouth twice dailyApixaban (Eliquis) 5 mg tablet Discontinued 5 MG PO Twice daily 180 December 03, 2023 1:05pm July 08, 2024 11:49amaspirin 81 mg delayed release oral tablet (20 sources)Platelet Aggregation Inhibitor, Nonsteroidal Anti-inflammatory Drug Start: 47-62-3776gqrm 1 tablet by mouth once dailytake 1 tablet by mouth once dailyAspir-Low 81 MG 1 tablet Orally Once a day Activecarvedilol 12.5 mg oral tablet (20 sources)alpha-Adrenergic Debbie, beta-Adrenergic BlockerStart: 03-09-2024 End: 96-94-5135upcd 1 tablet by mouth in the morningcarvedilol (Coreg) 12.5 MG tablet Take 12.5 mg by mouth in the morning and 12.5 mg in the evening. Take with meals. 03/09/2024 03/09/2025 ActiveContinuous Blood Gluc Sensor (FreeStyle Brent 14 Day Sensor) misc (20 sources)Start: 28-25-7227Vccwebkpgi Blood Gluc Sensor (FreeStyle Brent 14 Day Sensor) misc apply 1 SENSOR as directed every 14 days use with DEVICE to MONIT... (REFER TO PRESCRIPTION NOTES). 12/21/2022 Activedocusate sodium 100 mg oral capsule (20 sources)Start: 22-51-9321snel 1 capsule by mouth in the morningDocusate Sodium (DSS) 100 MG capsule Take 100 mg by mouth in the morning and 100 mg in the evening.06/12/2023 ActiveStart: 02-09-2021 End: 27-64-4739jzye 1 capsule by mouth three times dailyDocusate [...] mg oral tablet (20 sources)Start: 02-25-2024 End: 00-71-3772xgpammjia (Aricept) 10 MG tablet Indications: Cognitive decline 2 tabs QAM 60 tablet 5 07/21/2024 Activetake 1 tablet by mouth twice daily donepezil (Aricept) 10 mg tablet Take 1 tablet (10 mg) by mouth 2 times a day. ActiveEasy Touch Lancing Device - (4 sources)Easy Touch Lancing Device - as directed Activeempagliflozin 25 mg oral tablet (20 sources)Sodium-Glucose Cotransporter 2 InhibitorStart: 02-09-2021 End: 48-73-0340idxd 1 tablet by mouth once [id number] 0.3 ml EPINEPHrine 1 mg/ml auto-injector (5 sources)alpha-Adrenergic Agonist, beta-Adrenergic Agonist, Catecholamine Start: 97-21-0580Bcdbq Glucose Sensor (Freestyle Brent 14 Day Sensor) kit (20 sources)Start: 26-64-0709Fwngp Glucose Sensor (Freestyle Brent 14 Day Sensor) kit Active 0 .ROUTE .MEDSUPPLY December 29, 2024 7:04am As directed Change every 14 daysStart: 01-10-2024 End: 84-64-3681Dsmge Glucose Sensor (Freestyle Brent 14 Day Sensor) kit Discontinued 0 .ROUTE .MEDSUPPLY January 10, 2024 12:00am December 29, 2024 7:04am As directed Change every 14 daysStart: 22-43-5847Dxqad Glucose Sensor (Freestyle Brent 14 Day Sensor) kit Active 0 .ROUTE .MEDSUPPLY 2 January 09, 2024 11:00pm As directed Change every 14 daysStart: 01-10-2024 Flash Glucose Sensor (Freestyle Brent 14 Day Sensor) kit Active 0 .ROUTE .MEDSUPPLY January 10, 2024 12:00am As directed Change every 14 daysStart: 07-22-2023 End: 69-32-1843Uwlch Glucose Sensor (Freestyle Brent 14 Day Sensor) kit Discontinued 0 .ROUTE .MEDSUPPLY July 22, 2023 12:00am April 28, 2024 12:40pm As directed Change every 14 daysStart: 07-22-2023 End: 12-86-7439Fdobi Glucose Sensor (Freestyle Brent 14 Day Sensor) kit Discontinued 0 .ROUTE .MEDSUPPLY July 21, 2023 11:00pm April 28, 2024 11:40am As directed Change every 14 daysStart: 67-03-9063Qclwj Glucose Sensor (Freestyle Brent 14 Day Sensor) kit Active 0 .ROUTE .MEDSUPPLY July 21 12:00am As directed Change every 14 daysfolic acid 1 mg oral tablet (20 sources)Start: 66-07-4396btby 1 tablet by mouth once dailyStart: 02-09-2021 End: 30-80-4086zgou 1 tablet by mouth once dailyfolic acid [...] oral tablet (19 sources)Loop DiureticStart: 05-07-2024 End: 34-29-1644cdgv 1 tablet by mouth every other dayfurosemide (Lasix) 20 mg tablet Indications: Shortness of breath , Edema, unspecified type Take 1 tablet (20 mg) by mouth every other day. 45 tablet 3 05/07/2024 05/07/2025 ActiveStart: .5 ml insulin glargine 300 unt/ml pen injector (20 sources)Insulin AnalogStart: 01-05-2025 End: 71-25-8572qthojp 23 [IU] by subcutaneous injection once daily in the morningStart: 04-28-2024 End: 47-64-5920nqvqha 22 [IU] by subcutaneous injection once daily in the morningInsulin Glargine U-300 Conc (Toujeo Solostar U-300 Insulin) 300 unit/mL (1.5 mL) insulin pen Discontinued 22 UNIT SUBCUT Every morning January 05, 2025 1:41pm January 05, 2025 2:45pmStart: 06-12-2023 End: 07-08-3631yqmkxs 20 [IU] by subcutaneous injection once dailyInsulin Glargine U-300 Conc (Toujeo Solostar U-300 Insulin) 300 unit/mL (1.5 mL) insulin pen Discontinued 20 UNIT SUBCUT Daily November 14, 2023 4:09pm April 28, 2024 1:59pmStart: 89-02-7680Dcdwwo SoloStar 300 UNIT/ML injection inject 20 units subcutaneously as directed 12/12/2022 ActiveStart: 40-78-8290qmzwfvz glargine (Toujeo Solostar- 1 unit dial) 300 unit/mL (1.5 mL) injection 20 Units. 12/12/2022ctiveStart: 10-10-2022 End: 27-26-8477Afrezqc Glargine U-300 Conc (Toujeo Solostar U-300 Insulin) 300 unit/mL (1.5 mL) insulin pen Discontinued UNIT SUBCUT October 10, 2022 12:00am June 12, 2023 9:13amStart: 23-36-3949ttjhdk 20 [IU] by subcutaneous injection once dailyToujeo SoloStar 300 UNIT/ML 20 units once daily Subcutaneous as directed for 90 days (titrate up to30 units/day) Dec, ActiveInsulin Lispro 100 unit/mL insulin pen (20 sources)Start: 57-26-9410Kuryjli Lispro 100 unit/mL insulin pen Active 0 SUBCUT Before meals and at bedtime August 20, 2024 12:03pm subcutaneously before meals and at bedtime; 1:40 corrective scale (expect up to 20 units/day) Start: 12-23-2023 End: 33-67-8210Rhglalk Lispro 100 unit/mL insulin pen Discontinued 0 SUBCUT Before meals and at bedtime December 23, 2023 4:11pm August 20, 2024 12:04pm subcutaneously before meals and at bedtime; 1:50 corrective scale (expect up to 20 units/day)Start: 26-59-5636Pigyhsj Lispro 100 unit/mL insulin pen Active 0 SUBCUT Before meals and at bedtime December 23, 2023 4:11pm subcutaneously before meals and at bedtime; 1:50 corrective scale (expect up to 20 units/day) Start: 14-36-2104Dahrmoh Lispro 100 unit/mL insulin pen Active 0 SUBCUT Before meals and at bedtime December 23, 2023 3:11pm subcutaneously before meals and at bedtime; 1:50 corrective scale (expect up to 20 units/day)Start: 06-12-2023 End: 07-91-2238Agmleul Lispro 100 unit/mL insulin pen Discontinued 0 SUBCUT Before meals and at bedtime June 12, 2023 9:05am December 23, 2023 4:14pm subcutaneously before meals and at bedtime; 1:50 corrective scale (expect up to 20 units/day)Start: 06-12-2023 End: 86-84-0791Rpnhimr Lispro 100 unit/mL insulin pen Discontinued 0 SUBCUT Before meals and at bedtime June 12, 2023 8:05am December 23, 2023 3:14pm subcutaneously before meals and at bedtime; 1:50 corrective scale (expect up to 20 units/day)ketoconazole 20 mg/ml medicated shampoo (2 sources)Azole AntifungalStart: ml ketorolac tromethamine 30 mg/ml cartridge (2 sources)Nonsteroidal Anti-inflammatory Drug, Cyclooxygenase InhibitorStart: 01-03-2024 End: 43-04-9120lfbzcbbkv (Toradol) injection 30 mgStart: 01-03-2024 End: 22-99-6190welaah 30 mg by subcutaneous injection once30 mg, Intramuscular, Once, On Sat01/03/24 at 1745, For 1 dose, SubcutaneousL. acidophilus/Bifid. animalis (4 sources)Start: 29-15-5105vsge 1 tablet by mouth once dailyStart: 08-25-2024 take 1 tablet by mouth once dailyL. acidophilus/Bifid. animalis Active 1 TAB PO Daily August 25, 2024 12:00ammagnesium oxide 400 mg oral tablet (20 sources)Start: 01-29-2024 End: 88-16-1677epac 1 tablet by mouth twice dailyStart: 86-10-4777odgu 1 tablet by mouth twice dailyMagnesium Oxide Active 0 .ROUTE .COMPLEX 180 January 29, 2024 10:22am TAKE 1 TABLET BY MOUTH TWICEA DAYStart: 11-18-2023 End: 79-41-2352xass 1 tablet by mouth in the morningmagnesium oxide (Mag-Ox) 400 (240 Mg) MG tablet Take 400 mg by mouth in the morning and 400 mg before bedtime. 01/02/2024 ActiveStart: 09-14-2023 End: 04-77-8220fliy 1 tablet by mouth once dailyMagnesium Oxide (Magox) 400 mg (241.3 mg magnesium) tablet Discontinued 400 MG PO Daily September 14, 2023 12:00am November 18, 2023 2:05pmmemantine hydrochloride 10 mg oral tablet (20 sources)X-tmqhyh-Y-aspartate Receptor AntagonistStart: 40-88-1769bbvszlgql (Namenda) 10 MG tablet Indications: Cognitive decline 1 tab BID 60 tablet 5 07/21/2024 ActiveStart: 04-28-2024 End: 13-49-0291ahiwhejry (Namenda) 10 MG tablet Indications: Cognitive decline 1 tab BID 60 tablet 5 07/21/2024 ActiveStart: 02-25-2024 End: 09-80-2894xxtvliszm (Namenda) 10 MG tablet Indications: Cognitive decline 1 tab every day x3-5 days then BID 60 tablet 3 02/25/2024 07/21/2024 Discontinued (Reorder)metFORMIN hydrochloride 500 mg oral tablet (20 sources)BiguanideStart: 08-26-2023 End: 52-89-9746sles 1 tablet by mouth twice daily at mealtimeMetformin 500 mg tablet Discontinued 0 .ROUTE .COMPLEX 180 August 20, 2024 12:01pm January 05, 2025 2:46pm take 1 tablet by mouth twice a day with mealsStart: 02-09-2021 End: 15-94-3580zuwRGLWEC (Glucophage) 500 MG tablet Take 500 mg by mouth 08/26/2023 ActiveMiscellaneous Medical Supply (20 sources)Start: 63-05-8744Jpljxjeqojddl Medical Supply Active 0 .Route 1 November 26, 2023 2:24pm Hospital BedStart: 11-26-2023 End: 77-71-9522Gobqqnssysnxt Medical Supply Discontinued 0 .Route 1 November 26, 2023 2:22pm November 26, 2023 2:25pm As directedStart: 2023 End: 29-77-0165Etadyugytavlf Medical Supply Discontinued 0 .Route 1 2023 2:20pm November 26, 2023 2:23pm As directedStart: 09-30-2023 End: 60-37-4283Hdqtxkjimfxcj Medical Supply Discontinued 0 .Route 1 September 30, 2023 8:33am 2023 2:21pm As directedStart: 10-19-0394Tvxnzcvmrizat Medical Supply Active 0 .Route 1 September 30, 2023 8:33am As directedStart: 09-17-2023 End: 70-31-5305Obfquplscbroc Medical Supply Discontinued 0 .Route 1 September 17, 2023 12:00am September 30, 2023 8:33am As directedStart: 40-24-4210Iinaxnjvssvgl Medical Supply Active 0 .Route 1 September 17, 2023 12:00am As directedMultivitamin preparation (20 sources)Start: 39-26-4331qjxk 1 tablet by mouth once dailyMultivitamin Active 1 TAB PO Daily June 12, 2023 9:10amStart: 24-81-3361ypbc 1 tablet by mouth once dailyMultivitamin Active 1 TAB PO Daily June 12, 2023 8:10am Start: 02-09-2021 End: 06-87-2311lgun 1 tablet by mouth twice dailyMultivitamin Discontinued 1 TAB PO Twice daily February 09, 2021 12:00am June 12, 2023 9:13amStart: 02-09-2021 End: 78-83-7864doyo 1 tablet by mouth twice dailyMultivitamin Discontinued 1 TAB PO Twice daily February 08, 2021 11:00pm June 12, 2023 8:13amStart: 05-65-3209rspe 1 tablet by mouth twice dailyMultivitamin Active 1 TAB PO Twice daily February 08, 2021 11:00pmStart: 42-40-7174hslg 1 tablet by mouth twice dailyMultivitamin Active 1 TAB PO Twice daily February 09, 2021 12:00amtake 1 tablet by mouth once dailyMultivitamin - 1 tablet Orally Once a day Active Multivitamin tablet (20 sources)Start: 57-55-0228pdiv 1 tablet by mouth once dailyMultivitamin tablet Active 1 TAB PO Daily June 12, 2023 9:10am Complies with drug therapyStart: 69-85-6441bxru 1 tablet by mouth once dailyStart: 33-33-2715aefy 1 tablet by mouth once dailyMultivitamin tablet Active 1 TAB PO Daily June 12, 2023 9:10amStart: 30-64-0538vsmw 1 tablet by mouth once dailyMultivitamin tablet Active 1 TAB PO Daily June 12, 2023 8:10amnortriptyline 25 mg oral capsule (20 sources)Tricyclic AntidepressantStart: 02-25-2024 End: 07-76-2626fmvm 1 capsule by mouth at bedtimenortriptyline (Pamelor) 25 MG capsule Indications: Neurogenic pain Take 1 capsule (25 mg) by mouth at bedtime 30 capsule 5 07/21/2024 ActiveStart: 06-18-2023 End: 71-57-3068tlhx 100 mg by mouth once dailyNortriptyline Discontinued 100 MG PO Daily 180 90 October 16, 2023 7:37am November 18, 2023 2:05pmStart: 01-04-2023 End: 07-74-6751qpjf 1 capsule by mouth once dailyNortriptyline 50 mg capsule Discontinued 50 MG PO Daily 90 90 November 18, 2023 2:01pm February 03, 2024 12:05pmStart: 01-04-2023 End: 20-40-0536efln 2 capsules by mouth once daily at bedtimenortriptyline (Pamelor) 50 mg capsule Take 2 capsules (100 mg) by mouth once daily at bedtime. 01/04/2023 12/16/2023 Discontinued (Therapy completed)Start: 02-09-2021 End: 94-86-1015qdvq 1 capsule by mouth twice dailyNortriptyline 50 mg capsule Discontinued 50 MG PO Twice daily June 12, 2023 9:07am June 18, 2023 8:10pmtake 1 capsule by mouth every twenty-four hoursNortriptyline HCl 50 MG 1 capsules Orally Once a day Activeomeprazole 20 mg delayed release oral capsule (20 sources)Proton Pump InhibitorStart: 42-33-8777ipqt 1 capsule by mouth once dailyStart: 07-01-2023 End: 48-47-3693qzpz 1 capsule by mouth once dailyOmeprazole 20 mg capsule,delayed release(DR/EC) Discontinued 0 .ROUTE .COMPLEX 90 January 06, 2024 12:36pm September 10, 2024 12:44pm take 1 capsule by mouth once dailyStart: 01-02-2023 End: 47-21-3810ncsdmhpnth (PriLOSEC) [address] capsule 01/02/2023 ActiveStart: 02-09-2021 End: 47-77-4238rfmd 1 tablet by mouth once dailyOmeprazole 20 [...] MG/DOSE, 4 MG/3ML solution pen-injector (20 sources)Start: 72-89-8122pprfsp 1 mg by subcutaneous injection every week Ozempic, 1 MG/DOSE, 4 MG/3ML solution pen-injector Administer 1mg subcutaneously once weekly 12/10/2022 Activepregabalin 300 mg oral capsule (20 sources)Start: 22-26-5695qwsy 2 capsules by mouth once daily at bedtime Start: 07-10-2024 End: 79-01-9966tjgo 1 capsule by mouth twice dailypregabalin (Lyrica) 300 MG capsule Indications: Neurogenic pain TAKE 1 CAPSULE BY MOUTH TWICE A HEY064 capsule 1 03/01/2025 ActiveStart: 01-15-2024 End: 34-73-1422rmmd 1 capsule by mouth once dailyPregabalin 300 mg capsule Discontinued 300 MG PO Daily 90 90 July 03, 2024 1:03pm October 01, 2024 3:16pm Start: 81-72-5197Kbzowonzer Active MG PO January 15, 2024 12:00amStart: 64-73-9700cdnb 1 capsule by mouth twice dailypregabalin (Lyrica) 300 MG capsule Indications: Neurogenic pain TAKE 1 CAPSULE BY MOUTH TWICE A DAY60 capsule 3 01/07/2024 ActiveStart: 11-18-2023 End: 69-64-2105mfkw 1 capsule by mouth twice dailyPregabalin (Lyrica) 150 mg capsule Discontinued 150 MG PO Twice daily November 18, 2023 12:00am January 15, 2024 3:40pmSemaglutide (6 sources)Start: 86-03-0852qmwemm 2 mg by subcutaneous injection every week Semaglutide (Ozempic) 2 mg/dose (8 mg/3 mL) pen injector Active 2 MG SUBCUT every week April 28, 2024 1:00am Complies with drug therapyStart: 04-90-3236gqulev 2 mg by subcutaneous injection every weeksemaglutide (Ozempic) 1 mg/dose (4 mg/3 mL) pen injector (6 sources)Start: 93-09-1591mclymngnrov (Ozempic) 1 mg/dose (4 mg/3 mL) pen injector 2 mg 1 (one) time per week. 12/10/2022 ActiveStart: 01-21-8591trbhfs 1 mg by subcutaneous injection every weeksemaglutide (Ozempic) 1 mg/dose (4 mg/3 mL) pen injector Administer 1mg subcutaneously once weekly 12/10/2022 Active Semaglutide (Ozempic) 2 mg/dose (8 mg/3 mL) pen injector (14 sources)Start: 46-42-2141oozibi 2 mg by subcutaneous injection every week Semaglutide (Ozempic) 2 mg/dose (8 mg/3 mL) pen injector Active 2 MG SUBCUT every week April 28, 2024 1:00amStart: 34-96-6446qmvegk 2 mg by subcutaneous injection every weekSemaglutide (Ozempic) 2 mg/dose (8 mg/3 mL) pen injector Active 2 MG SUBCUT every week April 28, 2024 12:00amsertraline 50 mg oral tablet (17 sources)Serotonin Reuptake InhibitorStart: 04-21-0090bdcl 1 tablet by mouth once dailysertraline (Zoloft) 50 MG tablet Take 50 mg by mouth Daily 01/12/2025 ActiveStart: 12-15-2024 End: 91-02-2835ihnj 1 tablet by mouth once dailySertraline 25 mg tablet Discontinued 25 MG PO Daily January 11, 2025 11:49am January 12, 2025 2:36pmsimvastatin 20 mg oral tablet (20 sources)HMG-CoA Reductase InhibitorStart: 04-30-2024 End: 40-80-6127nkyo 2 tablets by mouth once dailyStart: 90-97-2896qoxl 1 tablet by mouth at bedtimesimvastatin (Zocor) 40 MG tablet Take 40 mg by mouth at bedtime 12/04/2022 ActiveStart: 02-09-2021 End: 52-32-7751fbyj 1 tablet by mouth once dailySimvastatin 20 mg Tablet Discontinued 20 MG PO Daily February 09, 2021 12:00am April 30, 2024 11:27am traMADol hydrochloride 50 mg oral tablet (3 sources)Opioid AgonistStart: 52-60-5174ewyi 1 tablet by mouth twice daily as neededvarenicline 1 mg oral tablet (20 sources)Partial Cholinergic Nicotinic AgonistStart: 94-55-1141zbaa 1 tablet by mouth twice dailyVarenicline Tartrate 1 MG 1 tablet after eating with a full glass of water Orally Twice a day for 30 days To fill after completing starter pack Nov, ActiveStart: 73-12-2882Ejfigtrrpqj Tartrate (Starter) 0.5 MG X 11 & 1 MG X 42 as directed Orally as directed for 30 days Nov, Active Start: 95-90-4320cpqe 1 mg by mouth twice dailyVarenicline Tartrate 1 MG as directed Orally Twice a day for 30 day(s) To start after completing starter pack Mar, ActiveStart: 35-30-3567Bdzvjclhwhr Tartrate 0.5 MG 1 tablet with food and water daily days 1-3 then increase to twice daily on days 4-7 Orally Once a day for 7 day(s) Sep, Not-TakingStart: 52-18-7271kkiv 1 tablet by mouth twice dailyVarenicline Tartrate 1 MG 1 tablet after eating with a full glass of water Orally Twice a day for 30 days Sep, Not-Takingvitamin b12 2.5 mg oral tablet (20 sources)Vitamin K54Sjuwm: 28-78-2439vkolkebupkbwho (Vitamin B-12) 2500 MCG tablet 11/14/2023 ActiveStart: 46-68-3738dpxp 1 capsule by mouth once daily Start: 02-09-2021 End: 94-38-4691eiqa 1 tablet by mouth once dailyCyanocobalamin (Vitamin B-12) (Vitamin B-12) 1,000 mcg Tablet Discontinued 1000 MCG PO Daily February 09, 2021 12:00am December 17, 2021 5:58amRA Vitamin B-12 Not-TakingRA Vitamin B-12 Active Completed/Discontinued Medications MedicationDrug Class(es)DatesSig (Normalized)Sig (Original)acetaminophen 325 mg oral tablet (20 sources)Start: 12-13-2021 End: 24-62-6076tbdp 1-3 tablets by mouth every six hours as needed for pain Acetaminophen 325 mg Tablet Discontinued 650 MG PO Every 6 hours as needed for Pain Scale 1 - 3 or fever December 13, 2021 12:00am December 17, 2021 5:59am Start: 12-13-2021 End: 10-94-9471swld 650 mg by mouth every six hoursAcetaminophen Discontinued 650 MG PO Every 6 hours December 13, 2021 12:00am December 17, 2021 5:59am Admelog (9 sources)Admelog Not-TakingAdmelog Activeamiodarone hydrochloride 200 mg oral tablet (20 sources)AntiarrhythmicStart: 10-07-2023 End: 35-05-9097nhbd 1 tablet by mouth twice dailyAmiodarone 200 mg tablet Discontinued 200 MG PO Twice daily November 04, 2023 12:00am April 14, 2024 10:39amamoxicillin 875 mg / clavulanate 125 mg oral tablet (20 sources)Penicillin-class AntibacterialStart: 12-15-2024 End: 76-41-1143zrca 1 tablet by mouth twice dailyAmoxicillin-Pot Clavulanate 875-125 mg tablet Discontinued 1 TAB PO Twice daily December 15, 2024 12:00am January 05, 2025 1:40pmStart: 01-15-2024 End: 81-16-0400Ceuscpgvpsn-Pot Clavulanate 875-125 mg tablet Discontinued TAB PO January 15, 2024 12:00am April 14, 2024 10:39am24 hr buPROPion hydrochloride 150 mg extended release oral tablet (20 sources)AminoketoneStart: 09-16-2024 End: 61-79-6951awdq 1 tablet by mouth once daily in the morningBupropion Hcl 150 mg tablet extended release 24 hr Discontinued 0 .ROUTE .COMPLEX September 160:37am January 05, 2025 1:40pm TAKE 1 TABLET BY MOUTH EVERY MORNING Start: 12-91-6929ohhf 1 tablet by mouth once daily in the morningBupropion Hcl 150 mg tablet extended release 24 hr Active 0 .ROUTE .COMPLEX September 16, 2024 10:37am TAKE 1 TABLET BY MOUTH EVERY MORNINGStart: 08-25-2024 End: 19-56-3149zmmt 1 tablet by mouth once daily in the morningBupropion Hcl 150 mg tablet extended release 24 hr Discontinued 150 MG PO Every morning August 25, 2024 12:00am September 16, 2024 10:38amStart: 09-49-4221qlzf 1 tablet by mouth every twenty-four hoursbuPROPion HCl ER (XL) 300 MG 1 tablet in the morning Orally Once a day for 90 day(s) Jul, ActivebuPROPion HCl ER (XL) 150 MG take 1 tablet by mouth every morning for 3 days for 3 DCed Activecefuroxime 500 mg oral tablet (20 sources)Cephalosporin AntibacterialStart: 04-30-2024 End: 00-31-1276xmey 1 tablet by mouth twice dailyCefuroxime Axetil 500 mg tablet Discontinued 500 MG PO Twice daily 14 April 30, 2024 1:00am August 20, 2024 10:10amStart: 12-13-2021 End: 04-05-2542ffhd 1 tablet by mouth twice dailyCefuroxime Axetil 500 mg tablet Discontinued 500 MG PO Twice daily 09 29December 13, 2021 12:00am October 10, 2022 12:16pmStart: 69-65-0688aojv 500 mg by mouth twice dailyCefuroxime Axetil Active 500 MG PO Twice daily 09 29December 13, 2021 12:00amStart: 91-45-3458xwdg 500 mg by mouth twice dailyCefuroxime Axetil Active 500 MG PO Twice daily 6 December 13, 2021 12:00amcephalexin 500 mg oral capsule (13 sources)Cephalosporin AntibacterialStart: 07-10-2024 End: 73-78-9080xhjm 1 capsule by mouth every eight hoursCephalexin 500 mg capsule Discontinued 500 MG PO Every 8 hours July 10, 2024 12:00am July 22, 2024 11:18amcyclobenzaprine hydrochloride 10 mg oral tablet (20 sources)Muscle RelaxantStart: 05-15-2024 End: 55-02-7313kytx 1-2 tablets by mouth at bedtimecyclobenzaprine (Flexeril) 10 MG tablet Indications: Cervical paraspinal muscle spasm , Lumbar paraspinal muscle spasm TAKE 1 TO 2 TABLETS BY MOUTH AT BEDTIME 60 tablet 3 05/15/2024 07/21/2024 DiscontinuedStart: 56-63-0168Dvzoybivpxccvcb Active MG PO January 15, 2024 12:00amStart: 01-07-2024 End: 68-90-6173Rfhobiazyaqysov 10 mg tablet Discontinued 10 MG PO As Directed as needed for muscle spasm 2023 12:00am April 30, 2024 11:27am dapagliflozin 10 mg oral tablet (4 sources)Sodium-Glucose Cotransporter 2 InhibitorStart: 59-47-8310welg 1 tablet by mouth every twenty-four hoursFarxiga 10 MG 1 tablet Orally Once a day for 30 day(s) Apr, Not-Takingdoxycycline hyclate 100 mg oral tablet (20 sources)Tetracycline-class DrugStart: 12-15-2024 End: 67-80-3564qeew 1 tablet by mouth twice dailyDoxycycline Hyclate 100 mg tablet Discontinued 100 MG PO Twice daily December 15, 2024 12:00am January 05, 2025 1:40pmStart: 11-16-2024 End: 50-69-0578xtbg 1 tablet by mouth in the morningdoxycycline [...] 20 tablet 11/16/2024 11/26/2024 ActiveStart: 02-06-2022 End: 01-32-8607zbla 1 capsule by mouth once dailydoxycycline (Vibramycin) 100 MG capsule take 1 capsule by mouth once daily for 10 days 02/06/2022 01/07/2024 Discontinuedflash glucose sensor (FreeStyle Brent 14 Day Sensor) (20 sources)Start: 06-12-2023 End: 52-81-1688ikqgm glucose sensor (FreeStyle Brent 14 Day Sensor) Discontinued .Route June 12, 2023 12:00am July 22, 2023 6:32amStart: 06-12-2023 End: 67-00-0887vhrrl glucose sensor (FreeStyle Brent 14 Day Sensor) Discontinued .Route June 12, 2023 12:00am November 09, 2023 9:09pmStart: 06-12-2023 End: 83-21-2299jmcdf glucose sensor (FreeStyle Brent 14 Day Sensor) Discontinued .Route June 12, 2023 1:00amJuly 2023 10:09pmStart: 06-12-2023 End: 27-34-4797surpe glucose sensor (FreeStyle Brent 14 Day Sensor) Discontinued .Route June 12, 2023 1:00amMarc2023 7:32amStart: 01-49-5376jajnu glucose sensor (FreeStyle Brent 14 Day Sensor) Active .Route June 12, 2023 1:00amStart: 48-29-3406coqwh glucose sensor (FreeStyle Brent 14 Day Sensor) Active .Route June 12, 2023 12:00amStart: 57-98-4316hhqgn glucose sensor (FreeStyle Brent 14 Day Sensor) Active .ROUTE June 12, 2023 12:00am Handicap placards as directed (13 sources)Start: 17-18-8948Awedncss placards as directed as directed as directed as directed To 5 years after issue date Nov, Active3 ml insulin lispro 100 unt/ml pen injector (20 sources)Insulin AnalogStart: 76-00-3737Sasqlwb Lispro Active 0 SUBCUT Before meals and at bedtime December 23, 2023 4:11pm subcutaneously before meals and at bedtime; 1:50 corrective scale (expect up to 20 units/day)Start: 06-12-2023 End: 38-89-5714Dalipch Lispro Discontinued 0 SUBCUT Before meals and at bedtime June 12, 2023 9:05am December 23, 2023 4:14pm subcutaneously before meals and at bedtime; 1:50 corrective scale (expect up to 20units/day)Start: 45-38-1086Mbetvvi Lispro Active 0 SUBCUT Before meals and at bedtime June 12, 2023 9:05am subcutaneously before meals and at bedtime; 1:50 corrective scale (expect up to 20 units/day)Start: 21-67-8195Brknxtm Lispro Active 0 SUBCUT Before meals and at bedtime June 12, 2023 8:05am subcutaneously before meals and at bedtime; 1:50 corrective scale (expect up to 20 units/day)Start: 10-10-2022 End: 10-65-8115xqhawy 1 dose by subcutaneous injection at bedtimeInsulin Lispro Discontinued sliding scale dose SUBCUT Before meals and at bedtime October 10, 2022 12:00am June 12, 2023 9:13amStart: 10-10-2022 End: 15-18-7227wvnbxu 1 dose by subcutaneous injection at bedtimeInsulin Lispro Discontinued sliding scale dose SUBCUT Before meals and at bedtime October 09, 2022 11:00pm June 12, 2023 8:13amStart: 78-59-0850ahmiai 1 dose by subcutaneous injection at bedtimeInsulin Lispro Active sliding scale dose SUBCUT Before meals and at bedtime October 09, 2022 11:00pmStart: 02-09-2021 End: 28-59-9096Zqjqzbx Lispro 100 unit/mL insulin pen Discontinued 0 SUBCUT Before meals and at bedtime June 12, 2023 9:05am December 23, 2023 4:14pm subcutaneously before meals and at bedtime; 1:50 corrective scale (expect up to 20 units/day)HumaLOG KwikPen 100 UNIT/ML 1:50 corrective scale Subcutaneous ac tid Not-TakingInsulin Lispro (Admelog Solostar U-100 Insulin) 100 unit/mL Insulin Pen (20 sources)Start: 02-09-2021 End: 55-05-0693Gfonszj Lispro (Admelog Solostar U-100 Insulin) 100 unit/mL Insulin Pen Discontinued 1 sliding scale dose SUBCUT Use as Directed February 09, 2021 12:00am October 10, 2022 12:17pmStart: 02-09-2021 End: 66-15-6964Xbzzbbl Lispro (Admelog Solostar U-100 Insulin) 100 unit/mL Insulin Pen Discontinued 1 sliding scale dose SUBCUT Use as Directed February 08, 2021 11:00pm October 10, 2022 11:17amInsulin Lispro 100 unit/mL Insulin Pen (14 sources)Start: 10-10-2022 End: 28-26-5190xrbkcu 1 dose by subcutaneous injection at bedtimeInsulin Lispro 100 unit/mL Insulin Pen Discontinued sliding scale dose SUBCUT Before meals and at bedtime October 10, 2022 12:00am June 12, 2023 9:13amStart: 10-10-2022 End: 01-52-2364vxxwzj 1 dose by subcutaneous injection at bedtimeInsulin Lispro 100 unit/mL Insulin Pen Discontinued sliding scale dose SUBCUT Before meals and at bedtime October 09, 2022 11:00pm June 12, 2023 8:13amL. acidophilus/Bifid. animalis (Daily Probiotic) (6 sources)Start: 08-25-2024 End: 00-09-3531jaxt 1 tablet by mouth once dailyL. acidophilus/Bifid. animalis (Daily Probiotic) Discontinued 1 TAB PO Daily August 25, 2024 12:00am December 15, 2024 1:58pmStart: 08-25-2024L. acidophilus/Bifid. animalis (Daily Probiotic) Active PO August 25, 2024 12:00amlidocaine 0.05 mg/mg topical ointment (20 sources)Antiarrhythmic, Amide Local AnestheticStart: 04-28-2024 End: 25-94-4315Pittnskts 5 % ointment Discontinued 1 APPLIC TOPICAL Daily as needed for pain April 28, 2024 1:00am August 20, 2024 10:11amStart: 01-30-2024 End: 93-47-1521hxhhjqswb (Xylocaine) 5 % ointment Indications: Ulcer of right foot, limited to breakdown of skin (CMS/HCC) Apply topically Daily Use as needed over the wound sites with dressing changes. 50 g 2 01/30/2024 07/21/2024 DiscontinuedStart: 01-03-2024 End: 27-22-3376npsccwkch (Xylocaine) 1 % injection 6 mgStart: 01-03-2024 End: mg (0.6 mL), Injection, Once, On Sat01/03/24 at 1745, For 1 dose, Added to dexamethasone or ketorolac for therapeutic injection.lisinopril 5 mg oral tablet (20 sources)Angiotensin Converting Enzyme InhibitorStart: 09-09-2023 End: 76-67-8034vfrd 1 tablet by mouth once dailyLisinopril 5 mg tablet Discontinued 0 .ROUTE .COMPLEX 90 September 09, 2023 9:36am November 05, 2023 12:26pm take 1 tablet by mouth once dailyStart: 06-12-2023 End: 22-15-0306hxar 2.5 mg by mouth once dailyLisinopril 10 mg tablet Discontinued 2.5 MG PO Daily June 12, 2023 9:09am June 12, 2023 4:42pmStart: 06-12-2023 End: 38-21-2579xcsv 2.5 mg by mouth once dailyLisinopril Discontinued 2.5 MG PO Daily June 12, 2023 9:09am June 12, 2023 4:42pmStart: 06-12-2023 End: 05-36-7117jhgw 1 tablet by mouth once dailyLisinopril 2.5 mg tablet Discontinued 2.5 MG PO Daily June 12, 2023 1:00am June 19, 2023 6:17pmStart: 12-04-2022 End: 26-46-0646yuso 1 tablet by mouth once dailyLisinopril 5 mg tablet Discontinued 5 MG PO Daily September 09, 2023 12:00am September 09, 2023 9:36amStart: 02-09-2021 End: 31-82-6064stmb 5 mg by mouth once dailyLisinopril 10 mg Tablet Discontinued 5 MG PO Daily February 09, 2021 12:00am June 12, 2023 9:13amStart: 02-09-2021 End: 33-02-2870mmzc 5 mg by mouth once dailyLisinopril Discontinued 5 MG PO Daily February 09, 2021 12:00am June 12, 2023 9:13amStart: 11-28-0396elqo 10 mg by mouth once dailyLisinopril Active 10 MG PO Daily February 09, 2021 12:00amtake 1 tablet by mouth every twenty-four hoursLisinopril 40 MG 1 tablet Orally Once a day Activeloratadine 10 mg oral tablet (20 sources)Start: 02-09-2021 End: 97-18-6252hdoh 1 tablet by mouth once dailyLoratadine 10 mg Tablet Discontinued 10 MG PO Daily February 09, 2021 12:00am October 10, 2022 12:16pm Loratadine PRN ActiveLoratadine prn ActiveLoratadine Activemetoclopramide 10 mg oral tablet (20 sources)Dopamine-2 Receptor AntagonistStart: 06-12-2023 End: 90-80-2134kpbe 1 tablet by mouth once daily at bedtimeMetoclopramide Hcl 10 mg tablet Discontinued 10 MG PO Daily at bedtime June 12, 2023 1:00am [facility] 2023 6:17pmStart: 02-09-2021 End: 13-73-7840vuli 1 tablet by mouth once dailyMetoclopramide Hcl 10 mg Tablet Discontinued 10 MG PO Daily February 09, 2021 12:00am October 10, 2022 12:15pm take 1 tablet by mouth at bedtimeMetoclopramide HCl 10 MG 1 tablet Orally at bedtime Dozyly27 hr metoprolol succinate 50 mg extended release oral tablet (20 sources)beta-Adrenergic BlockerStart: 10-30-2023 End: 99-16-5098fukq 1 tablet by mouth three times dailyMetoprolol Succinate 50 mg Tablet Extended Release 24 Hr Discontinued 50 MG PO Three times daily November 04, 2023 12:00am April 14, 2024 10:40amStart: 09-14-2023 End: 66-50-5194imxk 1 tablet by mouth every twenty-four hours in the morning metoprolol succinate XL (Toprol-XL) 50 MG 24 hr tablet Take 50 mg by mouth in the morning and 50 mgin the evening. 09/14/2023 04/07/2024 DiscontinuedStart: 09-14-2023 End: 53-20-4914rcfy 1 tablet by mouth once dailyMetoprolol Succinate 50 mg Tablet Extended Release 24 Hr Discontinued 50 MG PO Daily September 14, 2023 12:00am November 04, 2023 1:04pmMiscellaneous Medical Supply misc (20 sources)Start: 11-26-2023 End: 10-75-3554Htnkbbapqehuj Medical Supply misc Discontinued 0 .Route 1 November 26, 2023 2:24pm April 28, 2024 12:40pm Hospital BedStart: 11-26-2023 End: 13-39-6152Stimnyoxcpren Medical Supply misc Discontinued 0 .Route 1 November 26, 2023 1:24pm April 28, 2024 11:40am [facility] BedStart: 11-26-2023 End: 64-50-3688Aczptwmxfexns Medical Supply misc Discontinued 0 .Route 1 November 26, 2023 2:22pm November 26, 2023 2:25pm As directedStart: 11-26-2023 End: 75-35-6761Tslilimdnwcpe Medical Supply misc Discontinued 0 .Route 1 November 26, 2023 1:22pm November 26, 2023 1:25pm As directedStart: 2023 End: 61-03-4258Kbdkjmplpbhbn Medical Supply misc Discontinued 0 .Route 1 2023 2:20pm November 26, 2023 2:23pm As directedStart: 2023 End: 64-14-4491Vhhlgphcpfpel Medical Supply misc Discontinued 0 .Route 1 2023 1:20pm November 26, 2023 1:23pm As directedStart: 09-30-2023 End: 93-38-9126Nfomgqcgoiark [facility] [employer] misc Discontinued 0 .Route 1 September 30, 2023 8:33am 2023 2:21pm As directedStart: 09-30-2023 End: 85-70-6827Xfburyzozensb Medical Supply misc Discontinued 0 .Route 1 September 30, 2023 7:33am 2023 1:21pm As directedStart: 09-17-2023 End: 16-67-0828Ultrexkbxsnre Medical Supply misc Discontinued 0 .Route 1 September 17, 2023 12:00am September 30, 2023 8:33am As directedStart: 09-17-2023 End: 44-07-1268Jmarjibewtumg Medical Supply misc Discontinued 0 .Route 1 September 16, 2023 11:00pm September 30, 2023 7:33am As directedMultivitamin Tablet (20 sources)Start: 02-09-2021 End: 14-96-1444ycgp 1 tablet by mouth twice dailyMultivitamin Tablet Discontinued 1 TAB PO Twice daily February 09, 2021 12:00am June 12, 2023 9:13amStart: 02-09-2021 End: 92-05-3636moli 1 tablet by mouth twice dailyMultivitamin Tablet Discontinued 1 TAB PO Twice daily February 08, 2021 11:00pm June 12, 2023 8:13am24 hr nicotine 0.875 mg/hr transdermal system (17 sources)Cholinergic Nicotinic AgonistStart: 05-07-2024 End: 40-31-1316fdqhn 1 dose transdermal route every twenty-four hoursNicotine 21 mg/24 hr patch 24 hour Discontinued 1 PATCH TRANSDERML Daily May 07, 2024 1:00am August 20, 2024 10:11ampen needle, diabetic (Sure-Fine Pen [place]) (20 sources)Start: 06-12-2023 End: 29-78-9259knd needle, diabetic (Sure-Fine Pen [place]) Discontinued .Route June 12, 2023 1:00am January 05, 2025 1:32pmStart: 54-17-1915mad needle, diabetic (Sure-Fine Pen [place]) Active .Route June 12, 2023 1:00amStart: 73-77-1343vvu needle, diabetic (Sure-Fine Pen [place]) Active .Route June 12, 2023 12:00amStart: 76-43-2573xgn needle, diabetic (Sure- Fine Pen [place]) Active .ROUTE June 12, 2023 12:00ampioglitazone 15 mg oral tablet (20 sources)Peroxisome Proliferator Receptor alpha Agonist, Peroxisome Proliferator Receptor gamma Agonist, ThiazolidinedioneStart: 02-09-2021 End: 86-07-6958grsm 1 tablet by mouth once dailyPioglitazone 15 mg Tablet Discontinued 15 MG PO Daily February 09, 2021 12:00am April 28, 2024 1:57pm0.25 mg, 0.5 mg dose 1.5 ml semaglutide 1.34 mg/ml pen injector (20 sources)Start: 02-09-2021 End: 78-58-8495Tsuvtwnqihe (Ozempic) 0.25 mg or 0.5 mg(2 mg/1.5 mL) Pen Injector Discontinued 1 MG SUBCUT every week February 09, 2021 12:00am April 28, 2024 12:39pm SundayStart: 79-19-2287Dyeawaluuqp (Ozempic) 0.25 mg or 0.5 mg(2 mg/1.5 mL) Pen Injector Active 0.5 MG SUBCUT every week February 09, 2021 12:00am SaturdayOzempic (0.25 or 0.5 MG/DOSE) 2 MG/1.5ML inject 0.5 milligrams subcutaneously every week for 84 ActiveSemaglutide (20 sources)Start: 04-28-2024 End: 74-00-3353dlrcix 1 mg by subcutaneous injection every weekSemaglutide (Ozempic) 1 mg/dose (4 mg/3 mL) pen injector Discontinued 1 MG SUBCUT every week April 28, 2024 1:00am April 28, 2024 1:57pmStart: 04-28-2024 End: 92-58-9859xviztr 1 mg by subcutaneous injection every weekSemaglutide (Ozempic) 1 mg/dose (4 mg/3 mL) pen injector Discontinued 1 MG SUBCUT every week April 28, 2024 12:00am April 28, 2024 12:57pmtemazepam 30 mg oral capsule (20 sources)BenzodiazepineStart: 10-10-2022 End: 82-26-4982qlxw 1 capsule by mouth once dailyTemazepam 30 mg capsule Discontinued 30 MG PO Daily September 17, 2023 1:56pm November 08, 2023 4:43pm Start: 95-75-0804ojbh 1 capsule by mouth every twenty-four hoursTemazepam 30 MG 1 capsule at bedtime as needed Orally Once a day for 30 days Jul, Active Start: 05-41-2675kigj 1 capsule by mouth every twenty-four hoursTemazepam 30 MG 1 capsule at bedtime as needed Orally Once a day for 30 days Jun, Active Start: 31-76-7744muvl 1 capsule by mouth every twenty-four hoursTemazepam 30 MG 1 capsule at bedtime as needed Orally Once a day for 30 days May, Active Start: 47-22-1864izgw 1 capsule by mouth every twenty-four hoursTemazepam 15 MG 1 capsule at bedtime as needed Orally Once a day for 30 days Jun, Active Start: 88-04-8672zdeb 1 capsule by mouth every twenty-four hoursTemazepam 22.5 MG 1 capsule at bedtime as needed Orally Once a day for 30 days Apr, ActiveStart: 02-09-2021 End: 67-48-9203kdom 1 capsule by mouth once daily at bedtimeTemazepam 30 mg Capsule Discontinued 30 MG PO Daily at bedtime February 09, 2021 12:00am December 17, 2021 6:00amtake 1 capsule by mouth every twenty-four hoursTemazepam 15 MG 1 capsule at bedtime as needed Orally Once a day ActiveVitamin B12 1000 MCG (4 sources)Start: 61-79-9318xdrt 1 tablet by mouth once dailyVitamin B12 1000 MCG 1 tablet Orally Once a day for 90 days Jun, Not-TakingStart: 51-25-1162pjng 1 tablet by mouth once dailyVitamin B12 1000 MCG 1 tablet Orally Once a day for 90 days Jun, Active Problems Active Problems Problem ClassificationProblemDateDocumented DateEpisodic/ChronicAbdominal pain (20 sources)Abdominal pain; Translations: [Unspecified abdominal pain]12-17-2021 EpisodicAcquired foot deformities (2 sources)Deformity of toe; Translations: [Acquired deformities of toe(s), unspecified, right foot]86-50-5890TnjguamlVifscinquetuhu/social admission (20 sources)Dietary counseling and surveillance; Translations: [Tobacco abuse counseling]Onset: 03-27-2021 Resolved: 03-26-8443PuysaqkfYolumxnt reactions (10 sources)Allergy to honey bee venom; Translations: [Bee allergy status] 56-25-6358YhvsdxrxCvcvfny tract disease (20 sources)Biliary calculus; Translations: [Calculus of gallbladder without cholecystitis without obstruction]30-38-4743QayreiytPpxxbtp dysrhythmias (20 sources)Atrial flutter; Translations: [Unspecified atrial flutter]Onset: 773214-56-8718VrqdgsdBsgdkfs dysrhythmias (20 sources)Tachycardia; Translations: [Tachycardia, unspecified]09-12-2023 EpisodicChronic kidney disease (20 sources)Chronic kidney disease stage 2; Translations: [Chronic kidney disease, stage 2 (mild)]65-77-4311MgecosyNruwzxh ulcer of skin (20 sources)Non-pressure chronic ulcer of other part of right foot limited to breakdown of skin; Translations: [Ulcer of other part of foot]Onset: 11-16-2024 11-08-1986YmdtlojIvwr; stupor; and brain damage (9 sources)Daytime somnolence; Translations: [Somnolence]07-55-2665Xkrcroml Complications of surgical procedures or medical care (11 sources)Complication of ventilation makspur59-50-4245FjtldkylLjufaduhhh heart failure; nonhypertensive (11 sources)Congestive heart failure; Translations: [Heart failure, unspecified] 23-15-6413GbajdmgZqebkutd atherosclerosis and other heart disease (1 source)Coronary atherosclerosis and other heart diseaseOnset: 05-16-2017 Diabetes mellitus with complications (20 sources)Polyneuropathy due to type 2 diabetes mellitus; Translations: [Type 2 diabetes mellitus with diabetic polyneuropathy]Onset: 03-27-2021 Resolved: 40-47-9042BoyeyboLocyfpgo mellitus with complications (1 source)Diabetes mellitus with complicationsOnset: 94-27-1666Fnidcnjp mellitus without complication (20 sources)Type 2 diabetes mellitus; Translations: [Type 2 diabetes mellitus without complications]Onset: 945192-32-2070XamtviiRwlfclztf congenital anomalies (20 sources)Enlargement of tongue; Translations: [Macroglossia]Onset: 10-29-2023 19-20-0908RqkixrlXogmwmzi of white blood cells (20 sources)Granulocytosis; Translations: [Other elevated white blood cell count]Onset: 672080-25-4610FynbgvjPwymbkbfs of lipid metabolism (20 sources)Hyperlipidemia; Translations: [Hyperlipidemia, unspecified]Onset: 03-27-2021 Resolved: 35-74-2917WvkixtzMxoyqfdlwh disorders (18 sources)Stricture of esophagus; Translations: [Esophageal obstruction] ChronicEsophageal disorders (20 sources)Achalasia of esophagus; Translations: [Achalasia of cardia] 24-89-7591FhtstwfqVtuxvobmyv disorders (1 source)Esophageal disordersOnset: 96-91-7921Rhoogsxgi hypertension (20 sources)Hypertensive disorder; Translations: [Essential (primary) hypertension]Onset: 03-27-2021 Resolved: 86-48-7369AwhcabrSegqniyub hypertension (1 source)Essential hypertensionOnset: 49-24-0109Jsanpos and fatigue (20 sources)Fatigue; Translations: [Chronic fatigue, unspecified]Chronic Miscellaneous mental health disorders (20 sources)Primary insomnia; Translations: [Primary insomnia]ChronicMood disorders (20 sources)Major depressive disorder; Translations: [Major depressive disorder, single episode, unspecified]09-76-8757WxqmmkqFnwwyawkhyu chest pain (20 sources)Chest pain; Translations: [Chest pain, unspecified]09-12-2023 EpisodicNutritional deficiencies (20 sources)Vitamin D deficiency; Translations: [Vitamin D deficiency, unspecified]ChronicOpen wounds of extremities (20 sources)Injury of foot; Translations: [Unspecified open wound, unspecified foot, initial encounter]38-14-6204VirmfgelPcelo acquired deformities (2 sources)Unspecified acquired deformity of right lower leg; Translations: [Unspecified deformity of ankle and foot, acquired]07-68-2157FhuhaapyHnjsv aftercare (20 sources)Long-term current use of insulin; Translations: [retirement (current) use of insulin]90-35-7304WyxobpuhMhsad aftercare (12 sources)retirement (current) use of insulin; Translations: [Long-term (current) use of insulin]Onset: 03-27-2021 Resolved: 48-69-4892IvremkinLxcsn aftercare (20 sources)Post-discharge follow-up; Translations: [Encounter for follow-up examination after completed treatment for conditions other than malignant neoplasm]08-31-5614UdwhxdwcHocvl aftercare (17 sources)Encounter for follow-up examination after completed treatment for conditions other than malignant neoplasm; Translations: [Other follow-up examination]30-00-5638WxmyfyeyYupsu circulatory disease (16 sources)Low blood pressure; Translations: [Hypotension, unspecified] 56-03-4108ZzimktbvKilmk circulatory disease (5 sources)Hypotension, unspecified; Translations: [Hypotension, unspecified] 71-49-6017WkfjwxejPukhx connective tissue disease (20 sources)Neurogenic pain; Translations: [Neuralgia and neuritis, unspecified] Onset: 548115-73-0354RakqdgrlYaaka connective tissue disease (4 sources)Pain in left lower limb; Translations: [Pain in left leg]10-06-2024 EpisodicOther connective tissue disease (4 sources)Pain in right lower limb; Translations: [Pain in right leg]10-06-2024 EpisodicOther connective tissue disease (1 source)Weakness of hand; Translations: [Other symptoms and signs involving the musculoskeletal system]79-10-5419RxwktiegOqdhv female genital disorders (4 sources)Vaginal lesion; Translations: [Other specified noninflammatory disorders of vagina]45-44-1320GncivmxyXhqdg gastrointestinal disorders (20 sources)Dysphagia; Translations: [Dysphagia, unspecified]90-05-3126Wslryutq Other gastrointestinal disorders (15 sources)Stricture of esophagus; Translations: [Personal history of other diseases of the digestive system]EpisodicOther gastrointestinal disorders (16 sources)Incontinence of feces; Translations: [Full incontinence of feces] 62-79-1712EoenlpxmBiqur gastrointestinal disorders (5 sources)Full incontinence of feces; Translations: [Full incontinence of feces]37-05-6863XiyiwecqGskzx hematologic conditions (20 sources)Secondary polycythemia; 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] 50-48-5850GjfkxvcuWnyjp hematologic conditions (4 sources)Lesion of spleen; Translations: [Other diseases of spleen]01-12-2025 EpisodicOther injuries and conditions due to external causes (9 sources)Unspecified injury of left foot, initial encounter; Translations: [Injury of foot, left]EpisodicOther nervous system disorders (20 sources)Peripheral nerve disease ; Translations: [Polyneuropathy, unspecified]81-86-5291OwfastyYalkv nervous system disorders (20 sources)Polyneuropathy, unspecified; Translations: [Unspecified hereditary and idiopathic peripheral neuropathy]Onset: 03-27-2021 Resolved: 45-19-5681XbmtyeaZulvx nervous system disorders (20 sources)Walking disability; Translations: [Difficulty in walking, not elsewhere classified]61-68-1500QngokteBesyn nervous system disorders (12 sources)Difficulty in walking, not elsewhere classified; Translations: [Difficulty in walking]13-57-1673XfgaawxOogmt nervous system disorders (20 sources)Bilateral carpal tunnel syndrome; Translations: [Carpal tunnel syndrome, bilateral upper limbs]Onset: 450334-59-0534RxsbnigBcylz nervous system disorders (20 sources)Polyneuropathy; Translations: [Polyneuropathy, unspecified]Onset: 683210-44-7236JbjonbxEpxmx nervous system disorders (20 sources)Ulnar nerve entrapment at wrist; Translations: [Lesion of ulnar nerve, unspecified upper limb]Onset: 944446-59-5368KeczojvNllln nervous system disorders (5 sources)Numbness; Translations: [Anesthesia of skin]66-91-4442MmcaxywtMtuci nervous system disorders (1 source)Paresthesia; Translations: [Paresthesia of skin]82-80-8340Hfahpwtm Other nutritional; endocrine; and metabolic disorders (20 sources)Obese class I; Translations: [Body mass index (BMI) 33.0-33.9, adult]ChronicOther nutritional; endocrine; and metabolic disorders (20 sources)Body mass index 30+ - obesity; Translations: [Body mass index (BMI) 32.0-32.9, adult]Onset: 272665-77-0743DpchtuhEowfe nutritional; endocrine; and metabolic disorders (3 sources)Body mass index (BMI) 30.0-30.9, adultOnset: 03-27-2021 Resolved: 27-12-4209EfftnwgKjcoe nutritional; endocrine; and metabolic disorders (20 sources)Obese class II; Translations: [Body mass index (BMI) 35.0-35.9, adult]ChronicOther nutritional; endocrine; and metabolic disorders (1 source)Body mass index (BMI) 35.0-35.9, adultChronicOther nutritional; endocrine; and metabolic disorders (20 sources)Hypomagnesemia; Translations: [Hypomagnesemia]68-73-0516ViyyzsjWnyuq nutritional; endocrine; and metabolic disorders (20 sources)Hypomagnesemia; Translations: [Disorders of magnesium metabolism] Onset: 315296-02-7566TjssvkwPlzgd nutritional; endocrine; and metabolic disorders (16 sources)Body mass index (BMI) 32.0-32.9, adult; Translations: [Body Mass Index 32.0-32.9, adult]Onset: 737337-40-8198PqgjrvsRqgiv nutritional; endocrine; and metabolic disorders (2 sources)Obesity, unspecified; Translations: [Obesity, unspecified]Onset: 19-06-6004NgtuovdVziiq nutritional; endocrine; and metabolic disorders (4 sources)Obesity; Translations: [Class 1 obesity with body mass index (BMI) of 30.0 to 30.9 in adult]37-54-4881GrodiujXknky nutritional; endocrine; and metabolic disorders (20 sources)Body mass index (BMI) 28.0-28.9, adult; Translations: [Body Mass Index 28.0-28.9, adult]Onset: 01-09-2022 Resolved: 04-85-0777KnicshvuTfbgx nutritional; endocrine; and metabolic disorders (1 source)Body mass index (BMI) 29.0-29.9, adultEpisodicOther nutritional; endocrine; and metabolic disorders (20 sources)Overweight in adulthood with body mass index of 25 or more but less than 30; Translations: [Body mass index (BMI) 28.0-28.9, adult]Onset: 10-07-2023 Resolved: 693511-41-4241BbkbyptfJyesw screening for suspected conditions (not mental disorders or infectious disease) (1 source)Ultrasound scan abnormal; Translations: [Abnormal findings on diagnostic imaging of other specifiedbody structures]76-54-1381XvvlwytUklak screening for suspected conditions (not mental disorders or infectious disease) (20 sources)Thyroid function tests abnormal; Translations: [Other specified abnormal findings of blood chemistry]Onset: 187753-31-8856LhiocypoExdyg skin disorders (10 sources)Lesion of skin of face; Translations: [Disorder of the skin and subcutaneous tissue, unspecified]62-12-9158NzorwmslZvlcu skin disorders (3 sources)Disorder of the skin and subcutaneous tissue, unspecified; Translations: [Unspecified disorder of skin and subcutaneous tissue]08-25-2024 EpisodicPeri-; endo-; and myocarditis; cardiomyopathy (except that caused by tuberculosis or sexually transmitted disease) (20 sources)Cardiomyopathy; Translations: [Cardiomyopathy, unspecified]Onset: 309282-96-3323TkxnmwuBllrpnnyox and visceral atherosclerosis (20 sources)Peripheral vascular disease, unspecified; Translations: [Peripheral vascular disease]Onset: 01-25-2017 Resolved: 10-96-5421TogukvpSglxkvdh codes; unclassified (20 sources)Sleep apnea; Translations: [Sleep apnea, unspecified]ChronicResidual codes; unclassified (1 source)Sleep apnea, unspecifiedOnset: 07-03-2021 Resolved: 57-40-7748DrxxaypYlnfygdt codes; unclassified (2 sources)Obstructive sleep apnea (adult) (pediatric); Translations: [Obstructive sleep apnea (adult)(pediatric)]Onset: hronic Residual codes; unclassified (20 sources)Insomnia; Translations: [Insomnia, unspecified]EpisodicResidual codes; unclassified (1 source)Asymptomatic menopausal stateEpisodicResidual codes; unclassified (16 sources)Sleep disorder; Translations: [Sleep disorder, unspecified] 69-29-6543KghihorzYnybxzbo codes; unclassified (5 sources)Sleep disorder, unspecified; Translations: [Sleep disturbance, unspecified]76-97-9168VzadnmdcRlgidhjd codes; unclassified (2 sources)At increased risk of emergency hospital admission; Translations: [Other specified personal risk factors, not elsewhere classified]11-23-2024 EpisodicResidual codes; unclassified (8 sources)Postmenopausal state; Translations: [Asymptomatic menopausal state] 03-42-1085FrhivdufYrvy and subcutaneous tissue infections (6 sources)Cellulitis of right foot; Translations: [Cellulitis of right lower limb]52-51-0436AvekkucjPedfbrzdoim; intervertebral disc disorders; other back problems (15 sources)Lumbar spondylosis; Translations: [Spondylosis without myelopathy or radiculopathy, lumbar region]90-38-6342QynwvynItyypdynf-related disorders (20 sources)Smoker; Translations: [Nicotine dependence, unspecified, uncomplicated]Onset: 90-76-2466MfzpetaMicvpsdxnoj injury; contusion (8 sources)Blister of foot; Translations: [Blister (nonthermal), right foot, subsequent encounter]10-79-1737MsfnxtqrYailory disorders (20 sources)Hypothyroidism; Translations: [Hypothyroidism, unspecified]Onset: 797331-74-7007VuqedkgOwjazqrfh cerebral ischemia (20 sources)Transient cerebral ischemia; Translations: [Transient cerebral ischemic attack, unspecified]Onset: 540846-62-6176SoslvviWzypxqsxbmwd (3 sources)Dermatochalasis of left upper eyelid / H02.834(ICD-10)Onset: 52-45-3681Xoepongvygcv (1 source)Dermatochalasis of right upper eyelid / H02.831(ICD-10)Onset: 78-39-7985Adjdwnzphlwq (1 source)Unspecified ptosis of bilateral eyelids / H02.403(ICD-10)Onset: 67-25-5635Ocggbqnaazij (1 source)Nicotine dependence, unspecified, uncomplicated / F17.200(ICD-10) Onset: 68-39-7789Cygzpzuazhze (1 source)retirement (current) use of aspirin / Z79.82(ICD-10)Onset: 05-16-2017 Unclassified (1 source)retirement (current) use of oral hypoglycemic drugs / Z79.84(ICD-10) Onset: 49-11-9474Exkfnmcldspc (2 sources)Bilateral leg mmoxmsgo68-74-4148Lblvchv tract infections (20 sources)Emphysematous cystitis; Translations: [Other cystitis without hematuria]18-68-0228Auyinfsf Past or Other Problems Problem ClassificationProblemDateDocumented DateEpisodic/ChronicConditions associated with dizziness or vertigo (20 sources)Dizziness; Translations: [Dizziness and giddiness]Onset: 04-27-2024 66-17-1075KwtxforlQ Codes: Adverse effects of medical drugs (20 sources)Alpha-tocopheryl adverse reaction; Translations: [Adverse effect of vitamins, initial encounter]Onset: 955655-66-9395EswouwhjPnzeidbvotjbl symptoms and ill-defined conditions (2 sources)Proteinuria, unspecifiedOnset: 03-27-2021 Resolved: 57-69-0214KjrtdfkfRwgxkovpebqlb and screening for infectious disease (20 sources)Anti-nuclear factor positive; Translations: [Other specified abnormal immunological findings in serum]Onset: 761312-59-7351Juwrlnis Malaise and fatigue (20 sources)Asthenia; Translations: [Weakness]Onset: EpisodicNutritional deficiencies (20 sources)Deficiency of other specified B group vitamins; Translations: [Cobalamin deficiency]Onset: 03-27-2021 Resolved: 88-55-3876RjwsbudfZxgqv aftercare (7 sources)Taking high risk medication; Translations: [Other skilled nursing (current) drug therapy]Onset: 11-13-2023 Resolved: 146016-06-6332ChrbkpskSinmk connective tissue disease (1 source)Pain in right legOnset: 04-03-2021 Resolved: 83-99-1964HghvaodqTikfe connective tissue disease (1 source)Pain in left legOnset: 04-03-2021 Resolved: 25-26-0137CjuowlaeTmygv connective tissue disease (20 sources)Spasm of cervical paraspinous muscle; Translations: [Other muscle spasm]Onset: 821204-65-6956CttkqpukKsbdb connective tissue disease (20 sources)Muscle atrophy; Translations: [Muscle wasting and atrophy, not elsewhere classified, multiple sites]Onset: 227485-97-9752MakormhjZvedz connective tissue disease (20 sources)Pain in bilateral legs; Translations: [Pain in right leg]Onset: 217504-88-3633GxukovqkLtvqx connective tissue disease (20 sources)Other symptoms and signs involving the musculoskeletal system; Translations: [Other musculoskeletalsymptoms referable to limbs]Onset: 301600-12-1658JqerjmnzTqbsx gastrointestinal disorders (5 sources)Dysphagia, unspecified; Translations: [Dysphagia, unspecified]Onset: 15-24-0943FzbtysigJlmcw hematologic conditions (15 sources)Secondary polycythemia; 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, secondary] Onset: 481708-98-1196KhdmiskdCzvgu nervous system disorders (20 sources)Impaired cognition; Translations: [Other symptoms and signs involving cognitive functions and awareness]Onset: 573624-95-8177Mpnbgrwo Other skin disorders (1 source)Corns and callositiesOnset: 07-10-2021 Resolved: 56-21-2602BszsjxiyOkjjrxme codes; unclassified (20 sources)Obstructive sleep apnea syndrome; Translations: [Obstructive sleep apnea (adult) (pediatric)]Onset: 10-29-2023 Resolved: 443669-93-0785YfawjrtZmszycdy codes; unclassified (1 source)Insomnia, unspecifiedOnset: 05-08-2021 Resolved: 15-72-5494CdwsasfyRqqbggrszwy; intervertebral disc disorders; other back problems (20 sources)Spasm of muscle of lower back; Translations: [Muscle spasm of back] Onset: 435101-79-0404GephijwrAywavulmriuh (1 source)Dermatochalasis of left upper eyelid; Translations: [Dermatochalasis of left upper eyelid]Onset: 02-43-6070Fiylzoxcscpk (6 sources)Onset: 10-07-2023 Resolved: Results Test NameValueInterpretationReference RangeFacilityCNPNon 21-16-8748VHBJ Telephone (NCCAP) TAYE GAY ([id number]) 1955 F Date Time Provider Department 02/18/25 ZACK CORDOBA [facility] During your visit today, we recorded the following information about you: Marylin Kennedy Sarah 02/18/2025 10:34 AM Signed ----- Message from Shantel Sanabria sent at 02/18/2025 10:06 AM EDT ----- Can someone please call Dr. Linwood Irwin office to get this colposcopy with biopsies scheduled? Thanks! Shantel ----- Message ----- From: Farida Sinclair APRN.FISHER TERRAPIN Sent: 02/17/2025 12:43 PM EDT To: Shantel Gutierrez [facility] Thanks, so the plot thickens. The pap [...] results. ----- Message ----- From: Farida Sinclair APRN.FISHER TERRAPIN Sent: 02/11/2025 3:41 PM EDT To: Zack [...] AM Signed I called Dr Irwin office [phone] and spoke with Summer. Summer states she will send Dr Irwin a message re: our call per Farida FLIGHT DIRECTOR patient needs Colposcopy with biopsy and would [...] and also provided her with Dr Cordoba Lock[place] [phone] Irwin to call if she has any questions for Farida or Dr Cordoba regarding this patient. Sarah Coulter Pss Allergies As of Date: 02/18/2025 Noted Allergy Reaction SULFA (SULFONAMIDE ANTIBIOTICS) 2018 11 - Vomiting Date Reviewed: 12/18/2019 Reviewed by: Michelle Fritz (Catarina)CATARINA - Fully Assessed Prescriptions as of 02/18/2025 [...] [F17.200] Encounter Status:Closed by SARAH WALDROP on 02/18/25[facility] SURG PATH SLIDE REVIEWon 09-87-0588GT DISCLAIMERNoKing's Daughters Medical Center OhioComment on above:Order Comment: Specimen Type: FORMALIN-FIXED PARAFFIN-EMBEDDED TISSUE SPECIMEN Ordering Facility: Outside Review Address: , ,Result Comment: Laboratory Developed Test (LDT) Disclaimer: Performance characteristics of immunohistochemical, immunofluorescent, and chromogenic in-situ hybridization tests have been determined by the performing laboratory within the [facility] Department of Pathology and Laboratory Medicine ([facility], [facility], [facility], [facility], [facility], [facility], or [facility]) in a manner consistent with CLIA requirements. One or more of these tests may not have been cleared or approved by the FDA. The [facility] Department of Pathology and Laboratory Medicineis regulated under CLIA as qualified to perform high-complexity testing. These tests are used for clinical purposes. These should not be regarded as investigational or for research. Positive and negative controls stain appropriately.Performed By: #### [id number] #### [facility] CLIA [id number] [address] [place] [address] OF [facility] HOSPITALCASE REPORTNoWilson Memorial Hospital on above:Order Comment: Specimen Type: FORMALIN-FIXED PARAFFIN- EMBEDDED TISSUE SPECIMEN Ordering Facility: AP Outside Review Address: , ,Result Comment: Surgical Pathology Report Case: [id number] Authorizing Provider: Zack Cordoba MD Collected: 02/10/2025 10:21 PM Ordering Location: [facility] Received: 02/10/2025 10:[address] [facility] Pathologist: Stacy Hassan MD Specimen: Slide(s), 2 SLIDES ([id number])Performed By: #### [id number] #### [facility] CLIA [id number] [address] [place], [place] [address]FINAL DIAGNOSISNoWilson Memorial Hospital on above:Order Comment: Specimen Type: FORMALIN-FIXED PARAFFIN-EMBEDDED TISSUE SPECIMEN Ordering Facility: AP Outside Review Address: , ,Result Comment: Review of outside slides Vulva, biopsy: Consistent with condyloma. at 1516 EDTPerformed By: #### [id number] #### [facility] CLIA [id number] [address] [place] [address] STATES OF [facility] HOSPITALFINAL PERFORMING LABNoWilson Memorial Hospital on above:Order Comment: Specimen Type: FORMALIN-FIXED PARAFFIN-EMBEDDED TISSUE SPECIMEN Ordering Facility: AP Outside Review Address: , ,Result Comment: Diagnostic interpretation performed at: [facility], [address] [place] [address] CLIA# [id number] Cruise Counselor: CHARLINE Pedrazaerformed By: #### [id number] #### [facility] CLIA [id number] [address] [place] [address] STATES OF [facility] COUNTY HOSPITALMISCELLANEOUS SMEAR CYTOLOGYon 23-30-9813Aodraenr report Cyto stain Doc (Unsp spec)CommentNOMS Healthcare [...] above: VULVAPerformed by:CommentNOMS HealthcareComment on above:Carmelita Reese, Desktop Support Associate (ASCP)Performed at: 01 - [address] [id number] Tour Consultant: Savi Cai MD, Phone: [phone] Specimen Comment: No. of containers..01 ThinPrep VialLABCORPNONH HealthcareNo Panel Informationon 42-38-5531Anjekvjyr ICD code [Identifier]CommentNOMS HealthcareComment on above:N89.8 Z01.419 Z12.4 R87.69CNPNon 15-45-3412PXILVaxyetddd (NCC) TAYE GAY ([id number]) 1955 F Date Time Provider Department 02/04/25 ZACK CORDOBA [facility] During your visit today, we recorded the [...] opinion path since it is benign? Farida Sinclair APRN.CNP 02/09/2025 9:54 AM Signed Order for path review placed. Farida Sinclair APRN.CNP Allergies As of Date: 02/04/2025 Noted Allergy Reaction SULFA (SULFONAMIDE ANTIBIOTICS) 2018 11 - Vomiting Date Reviewed: 12/18/2019 Reviewed by: Michelle Fritz (Catarina)CATARINA - Fully Assessed Primary Visit Diagnosis:Vulvar lesion [N90.89] Order(s):OUTSIDE SURG PATH SLIDE REVIEW [HRC2675] Order #: [id number] Prescriptions as of 02/09/2025 - polyethylene glycol [...] [F17.200] Encounter Status:Closed by FARIDA SINCLAIR on 02/09/25[facility] lung screeningon 22-86-4867GV lung screeningDAYTON CHILDR[facility] [place] [address] [place] [address] [place] Scan Report Signed Patient: Taye Gay MR#: [id number] 19 : 1955 Acct:[id number] Age/Sex: 69 / F ADM Date: 02/02/25 Loc: CT Room: Type: [facility] Attending Dr: CHERYL Palacios APRN Copies to: Shantel Norton APRN, CNP Ordering [...] months. Impression dictated by: Edgar Segovia Jr., DKenishaOKenisha 02/02/2025 12:36 PM Dictation Location: [facility]-- Transcribed By: [facility] 02/02/25 1236 Dictated By: Edgar Segovia Jr, DO 02/02/25 1232 Signed By: 02/02/25 1236[facility] Physician UqitrLwG4t HPLC (Bld) [Mass fraction] Ordered By: Angelique Russell on 64-28-9233YaY3w (Bld) [Mass fraction]8.6 %[facility] CenterNo Panel InformationOrdered By: Angeliuqe Russell on 21-42-4287Natnpzc Cnpcbrg280CyrlvuwwzDiley Ridge Medical CenterMR LUMBAR SPINE WO CONTRASTon 96-44-5711EZ LUMBAR SPINE WO CONTRASTEXAM: MR LUMBAR SPINE [...] culture with sensitivityOrdered By: Karl Fritz on 71-59-9202Daragpgq identified Aer cx Nom (Unsp spec)Klebsiella oxytocaAbKettering Health Dayton Bacteria identified Aer cx Nom (Unsp spec)Staphylococcus aureusAbSouthview Medical Centeruperficial Wound Cultureon 47-45-9620Ciqfsrrppgu Wound CultureORGANISM: Klebsiella oxytoca (O:KLEOXY) Quantity of [...] RESISTANT TO ALL B-LACTAM DRUGS. PERFORMED BY: [place] [address] PATHOLOGIST ADJUNCT FACULTY INSTRUCTOR BENNIE HIGGINBOTHAM M.D.[facility] Physician GroupComment on above: Performed By: #### CMP, MG, PHOS, CBC #### [facility] [address] [place] [address] USAXR Foot - right 3 Viewson 45-40-6675Fsaenlf Result: Three views of the right foot: [...] plantar sesamoids and metatarsal head right 1st metatarsal.[facility] HealthcareRadiology Study observation (narrative)[facility] blood glucose measurement by glucometer (mass/volume)Ordered By: Manjit Gleason on 20-05-1553Bngttxs [Mass/Vol]234 mg/dLSt. Mary's [facility] Comment on above:Random Glucose Reference Range is [...] By: #### CMP, MG, PHOS, CBC #### [facility] [address] [place], [place] [address] USAGlucose Glucometer (BldC) [Mass/Vol]Ordered By: Manjit Gleason on 22-55-5609Zeobkvw [Mass/Vol]Capillary blood glucose measurement by glucometer (mass/volume)[facility] Medical CenterComment on above:Random Glucose Reference Range is dependent on time and content of last meal. Glucose of more than 200 mg/dL in a nonstressed, ambulatory subject supports the diagnosis of Diabetes Mellitus.Glucose Poct Glucometerson 25-83-8193Vforxto1 Glu2: Cleaned [facility] Physician GroupComment on above:Result Comment: PERFORMED BY: [place] [address] PATHOLOGIST ADJUNCT FACULTY INSTRUCTOR LE MACE M.D.Performed By: #### CMP, MG, PHOS, CBC #### [facility] [address] [place] [address] USANo Panel InformationOrdered By: Manjit Gleason on 09-10-2024 Miscellaneous Pathology TestSee commentDiley Ridge Medical CenterComment on above:See report. Scanned copy available in EMR.Bedside Glucose CommentGlu2: cleaned [facility] HospitalPathology Request for Lab Corpon 38-23-8349Bapulxadi Request for Lab CorpHCA [facility] Hospital Physician Group Comment on above:Order Comment: GI SPECIMENResult Comment: See report. Scanned copy available in EMR. PERFORMED BY: [address] [address] PATHOLOGIST ADJUNCT FACULTY INSTRUCTOR LE MACE M.D.Performed By: #### CMP, MG, PHOS, CBC #### [facility] [address] [place] [address] GFCQqF4o HPLC (Bld) [Mass fraction]on 58-26-8666IsO9d (Bld) [Mass fraction]Hemoglobin A1c/Hemoglobin.total in Blood by HPLCDiley Ridge Medical CenterHbA1c (Bld) [Mass fraction]8.8 %[facility] CenterNo Panel Informationon 97-94-2181Yugpint Kmdhugo845VuomhydfdDiley Ridge Medical CenterUS ankle/arm indiceson 71-95-5361UH ankle/arm indices [facility] [address] [place], [place] [address] Ultrasound Report Signed Patient: Taye Gay MR#: [id number] [birth year] : 1955 Acct:[id number] Age/Sex: 68 / F ADM Date: 07/22/24 [facility] Room: Type: [facility] Attending Dr: Tray Nava MD [...] Eugenio Rob M.D.07/23/2024 9:21 AM Dictation Location: [place] [address] Tech: Carmelita Horowitz Transcribed By: [facility] 07/23/24920 Dictated By: Eugenio Rob MD 07/23/24919 Signed By: 07/23/24 0921[facility] Physician GroupRunnells Specialized Hospital Cultureon 07-06-2024 Bacteria identified Cx Nom (U)ORGANISM: Klebsiella oxytoca (O:KLEOXY) [place] Count >100,000 Aerobic FAMILIA Charge (NMIC56) SUSCEPTIBILITY [...] RESISTANT TO ALL B-LACTAM DRUGS. PERFORMED BY: [place] [address] PATHOLOGIST ADJUNCT FACULTY INSTRUCTOR LE MACE M.D.NormalSt. Vincent'S Medical Center Southside Physician GroupComment on above: Performed By: #### CMP, MG, PHOS, CBC #### [address] StreetUrine cultureOrdered By: Deneen Frost on 07-06-2024 Bacteria identified Cx Nom (U)AbnormalDiley Ridge Medical CenterAlanine aminotransferase [Enzymatic activity/volume] in Serum or PlasmaOrdered By: Angelique Russell on 85-79-3845LWA [Catalytic activity/Vol]Alanine aminotransferase [Enzymatic activity/volume] in Serum or Plasma7-[facility] Ridge Medical CenterAlbumin [Mass/volume] in Serum or Plasma by Bromocresol green (BCG) dye binding methoOrdered By: Angelique Russell on 53-48-1874Ihxyfox BCG dye [Mass/Vol] Albumin [Mass/volume] in Serum or Plasma by Bromocresol green (BCG) dye binding metho3.5-5.7FCleveland Clinic South Pointe HospitalAlkaline phosphatase [Enzymatic activity/volume] in Serum or PlasmaOrdered By: Juliodra Mapus on 98-35-8692GFL [Catalytic activity/Vol]Alkaline phosphatase [Enzymatic activity/volume] in Serum or Skwhhq83-797YaatskywvDiley Ridge Medical CenterAspartate aminotransferase [Enzymatic activity/volume] in Serum or PlasmaOrdered By: Tondra Mapus on 09-18-7070LQL [Catalytic activity/Vol]Aspartate aminotransferase [Enzymatic activity/volume] in Serum or Aunqbc83-36ZgxzfvocdDiley Ridge Medical CenterB-Type Natriuretic Peptideon 03-35-0821Duaavrsdsfs peptide B (Bld) [Mass/Vol]54.0 pg/mL Normal5-100The [facility] HospitalComment on above:Result Comment: PERFORMED BY: [place] [address] PATHOLOGIST ADJUNCT FACULTY INSTRUCTOR LE MACE M.D.Performed By: #### CMP, MG, PHOS, CBC #### [facility] [address] [place] [address] USABCR-ABL Neogenomicon 34-46-4588UQT-ABL NeogenomicNormPenrose HospitalComment on above:Result Comment: See report. Scanned copy available in EMR. PERFORMED BY: [facility] [address] [place] [address] PATHOLOGIST ADJUNCT FACULTY INSTRUCTOR LE MACE M.D.Performed By: #### CMP, MG, PHOS, CBC #### [facility] [address] [place] [address] USABasophils Auto (Bld) [#/Vol]Ordered By: Nataliya Jane on 98-93-4837Xzhrzqvql (Bld) [#/Vol]Automated basophil count0.0-0.2FCleveland Clinic South Pointe HospitalBasophils/100 WBC Auto (Bld)Ordered By: Nataliya Jane on 38-13-8706Tsnkyenfc/100 WBC (Bld)Automated basophil %.[facility] Ridge Medical CenterBilirubin.total [Mass/volume] in Serum or PlasmaOrdered By: Tondra Mapus on 92-89-8378Imtczsdym [Mass/Vol]Bilirubin.total [Mass/volume] in Serum or Plasma0.3-1.0[facility] W Auto Differential panel (Bld)on 53-82-8220Vcdtcsnax (Bld) [#/Vol]0 10*3/uL0.0 - 0.2 10*3/uLNOMS HealthcareBasophils/100 WBC Manual cnt (Syn fld)0.5 %.[facility] HealthcareEosinophils (Bld) [#/Vol]0.2 10*3/uL0.0 - 0.45 10*3/uLNOMS HealthcareEosinophils/100 WBC Manual cnt (Syn fld)2.7 %.[facility] HospitalErythrocyte distribution width (RBC) [Ratio]14.6 %11.9 - 15.3 %[facility] HospitalHematocrit (Bld) [Volume fraction]46.4 %34.0 - 46.4 %[facility] HospitalHemoglobin (Bld) [Mass/Vol]15.8 g/tQMwbj44.8 - 15.4 g/dLALTA VIEW HOSPITAL HealthcareInterpretation and review of laboratory resultsAbnormalALTA VIEW HOSPITAL HealthcareLymphocytes (Bld) [#/Vol]1.6 10*3/uL1.00 - 4.8 10*3/uLNOMS Healthcare Lymphocytes/100 WBC Manual cnt (Syn fld)23.1 %.[facility] CenterH (RBC) [Entitic mass]32.6 pg24.7 - 34.3 pgSt. Joseph Medical CenterHC (RBC) [Mass/Vol]34.2 g/dL32.0 - 35.0 g/dLSt. Joseph Medical CenterV (RBC) [Entitic vol]95.3 fL80 - 100 fLHannibal Regional Hospital Monocytes (Bld) [#/Vol]0.5 10*3/uL0.0 - 0.8 10*3/uLNOMS Healthcare Monocytes+Macrophages/100 WBC Manual cnt (Syn fld)6.6 %.[facility] Neutrophils (Bld) [#/Vol]4.6 10*3/uL1.8 - 7.7 10*3/uLNOMS Healthcare Neutrophils/100 WBC Manual cnt (Syn fld)67.1 %.[facility] HealthcareNRBC0.1 /100{WBC}0 - 0.5 /100{WBC}NOMS HealthcarePlatelet mean volume (Bld) [Entitic vol]10.4 fL 6.3 - 10.7 fLNOMS HealthcarePlatelets (Bld) [#/Vol]120 10*3/yRSop116 - 450 10*3/uLNOMS HealthcareRBC LM.HPF (Urine sed) [#/Area]4.86 10*6/uL3.60 - 5.00 10*6/uLNOMS HealthcareWBC (Bld) [#/Vol]6.9 10*3/uL3.8 - 11.6 10*3/uLNOMS HealthcareWBC LM.HPF (Urine sed) [#/Area]6.9 10*3/uL3.8 - 11.6 10*3/uLNOMS HealthcareNOMS HealthcareCalcium [Mass/volume] in Serum or PlasmaOrdered By: Angelique Russell on 87-08-7010Vmbdrwr [Mass/Vol]Calcium [Mass/volume] in Serum or Plasma8.6-10.3FCleveland Clinic South Pointe HospitalCarbon dioxide, total [Moles/volume] in Serum or PlasmaOrdered By: Angelique Russell on 53-60-6972OY8 [Moles/Vol]Carbon dioxide, total [Moles/volume] in Serum or Adfwbf58.0-31.0 [facility] Medical CenterChloride [Moles/volume] in Serum or Plasma Ordered By: Angelique Russell on 61-04-3866Bbvumhwl [Moles/Vol]Chloride [Moles/volume] in Serum or Gqqdxe35-633SepauuzbzDiley Ridge Medical Center Cholesterol [Mass/volume] in Serum or PlasmaOrdered By: Angelique Russell on 38-93-4741Tdvgmfhvbqe [Mass/Vol]Cholesterol [Mass/volume] in Serum or PlasmaLow 140-200Diley Ridge Medical CenterComment on above:Chol less than 200 mg/dl low riskChol 201-239 mg/dl borderline riskChol 240 mg/dl and greater high riskCholesterol in HDL [Mass/volume] in Serum or PlasmaOrdered By: Angelique Russell on 37-37-4501Zdtwbpjowpv in HDL [Mass/Vol]Serum or plasma high density lipoprotein (HDL) cholesterol sbbjudlxbdh95-66UiquvwvfkDiley Ridge Medical Center Comment on above:HDL CHOL ATP-III CLASSIFICATION Cardiovascular RiskHDL > or equal to 60 mg/dL LOWHDL < 40 mg/dL HIGHCholesterol in LDL Calc [Mass/Vol] Ordered By: Angelique Russell on 12-21-8093Utginubgzyo in LDL [Mass/Vol]Cholesterol in LDL [Mass/volume] in Serum or Plasma by calculation0Diley Ridge Medical CenterComment on above:LDL ATP III CLASSIFICATIONLDL less than 100 mg/dL OptimalLDL 100-129 mg/dL Near or above esxxxdcBZY496-155 mg/dL Borderline highLDL 160-189 mg/dL HighLDL greater than 189 mg/dL Very highCholesterol in VLDL Calc [Mass/Vol]Ordered By: Angelique Russell on 03-53-9507Sexafsrnxed in VLDL [Mass/Vol]Cholesterol in VLDL [Mass/volume] in Serum or Plasma by calculation [facility] Medical CenterComplete Blood Count Auto Diffon 06-26-2024 Basophils (Bld) [#/Vol]0.0 10*3/uLNormal0.0-0.2The [facility] Comment on above:Result Comment: PERFORMED BY: [place] [address] PATHOLOGIST ADJUNCT FACULTY INSTRUCTOR LE MACE M.D.Performed By: #### CMP, MG, PHOS, CBC #### [facility] [address] [place] [address] USABasophils/100 WBC (Bld)0.5 %Normal.The [facility] Physician GroupComment on above:Performed By: #### CMP, MG, PHOS, CBC #### [facility] [address] [place] [id number] USAEosinophils (Bld) [#/Vol]0.2 10*3/uLNormal0.0-0.45The [facility] Physician GroupComment on above:Performed By: #### CMP, MG, PHOS, CBC #### [facility] [address] [place] [address] USAEosinophils/100 WBC (Bld)2.7 %Normal.The [facility] Physician GroupComment on above:Performed By: #### CMP, MG, PHOS, CBC #### [place] [address] USAErythrocyte distribution width (RBC) [Ratio]14.6 %Normal 11.9-15.3The [facility] Physician GroupComment on above:Performed By: #### CMP, MG, PHOS, CBC #### [place] [address] USAHematocrit (Bld) [Volume fraction]46.4 %Rtjeyh28.0-46.4The [facility] Physician GroupComment on above:Performed By: #### CMP, MG, PHOS, CBC #### [place] [address] USAHemoglobin (Bld) [Mass/Vol]15.8 g/cRMyiv06.8-15.4The [facility] Physician GroupComment on above:Performed By: #### CMP, MG, PHOS, CBC #### [place] [address] USALymphocytes (Bld) [#/Vol]1.6 10*3/uLNormal1.00-4.8The [facility] Physician GroupComment on above:Performed By: #### CMP, MG, PHOS, CBC #### [place] [address] USALymphocytes/100 WBC (Bld)23.1 %Normal.The [facility] Physician GroupComment on above:Performed By: #### CMP, MG, PHOS, CBC #### [place] [address] USAMCH (RBC) [Entitic mass]32.6 kqGsptgf09.7-34.3The [facility] Physician GroupComment on above:Performed By: #### CMP, MG, PHOS, CBC #### [place] [address] USAMCV (RBC) [Entitic vol]95.3 pOOjmxkk60-036Lkm [facility] Physician GroupComment on above:Performed By: #### CMP, MG, PHOS, CBC #### [place] [address] USAMean Corpuscular HGB Conc34.2 g/sYLhiktg13.0-35.0The [facility] Physician GroupComment on above:Performed By: #### CMP, MG, PHOS, CBC #### [place] [address] USAMonocytes (Bld) [#/Vol]0.5 10*3/uLNormal0.0-0.8The [facility] Physician GroupComment on above:Performed By: #### CMP, MG, PHOS, CBC #### [place] [address] USAMonocytes/100 WBC (Bld)6.6 %Normal.The [facility] Physician GroupComment on above:Performed By: #### CMP, MG, PHOS, CBC #### [place] [address] USANeutrophils (Bld) [#/Vol]4.6 10*3/uLNormal1.8-7.7The [facility] Physician GroupComment on above:Performed By: #### CMP, MG, PHOS, CBC #### [place] [address] USANeutrophils/100 WBC (Bld)67.1 %Normal.The [facility] Physician GroupComment on above:Performed By: #### CMP, MG, PHOS, CBC #### [place] [address] USANRBC%0.1 /100{WBC}Normal0-0.5The [facility] Comment on above:Performed By: #### CMP, MG, PHOS, CBC #### [place] [address] USAPlatelet mean volume (Bld) [Entitic vol]10.4 fLNormal 6.3-10.7The [facility] Physician GroupComment on above:Performed By: #### CMP, MG, PHOS, CBC #### [place] [address] USAPlatelets (Bld) [#/Vol]120 10*3/gRYvo803-683Sla [facility] Physician GroupComment on above:Performed By: #### CMP, MG, PHOS, CBC #### [place] [address] USARBC (Bld) [#/Vol]4.86 10*6/uLNormal3.60-5.00The [facility] Physician GroupComment on above:Performed By: #### CMP, MG, PHOS, CBC #### [place] [address] USAWBC (Bld) [#/Vol]6.9 10*3/uLNormal3.8-11.6The [facility] Physician GroupComment on above:Performed By: #### CMP, MG, PHOS, CBC #### [place] [address] USAComprehensive Metabolic Panelon 55-91-2742Elafeqw [Mass/Vol]3.8 g/dLNormal3.5-5.7The [facility] Physician GroupComment on above: Performed By: #### CMP, MG, PHOS, CBC #### [place] [address] USAAlbumin/Globulin [Mass ratio]1.5 {ratio}NormalThe [facility] Physician GroupComment on above:Performed By: #### CMP, MG, PHOS, CBC #### [place] [address] USAALP [Catalytic activity/Vol]92 U/WLytlgy19-867Ssm [facility] Physician GroupComment on above:Result Comment: PERFORMED BY: [place] [address] PATHOLOGIST ADJUNCT FACULTY INSTRUCTOR LE MACE M.D.Performed By: #### CMP, MG, PHOS, CBC #### [place] [address] USAALT [Catalytic activity/Vol]23 U/LNormal7-52The [facility] Physician GroupComment on above:Performed By: #### CMP, MG, PHOS, CBC #### [facility] [address] [place] [address] USAAnion gap [Moles/Vol]12.2 mmol/LNormal6.0-15.0The [facility] Physician GroupComment on above:Performed By: #### CMP, MG, PHOS, CBC #### [facility] [address] [place] [address] USAAST [Catalytic activity/Vol]36 U/YSofrdc55-91Vnj [facility] Physician GroupComment on above:Performed By: #### CMP, MG, PHOS, CBC #### [facility] [address] [place] [address] USABilirubin [Mass/Vol]0.4 mg/dLNormal0.3-1.0The [facility] Physician GroupComment on above:Performed By: #### CMP, MG, PHOS, CBC #### [place] [address] USACalcium [Mass/Vol]9.4 mg/dLNormal8.6-10.3The [facility] Physician GroupComment on above:Performed By: #### CMP, MG, PHOS, CBC #### [place] [address] USAChloride [Moles/Vol]103 mmol/GRabklw10-627Gkc [facility] Physician GroupComment on above:Performed By: #### CMP, MG, PHOS, CBC #### [facility] [address] [place] [address] USACO2 [Moles/Vol]29.0 mmol/LYvwayq40.0-31.0The [facility] Physician GroupComment on above:Performed By: #### CMP, MG, PHOS, CBC #### [facility] [address] [place] [address] USACreatinine [Mass/Vol]0.93 mg/dLNormal0.60-1.20The [facility] Physician GroupComment on above:Performed By: #### CMP, MG, PHOS, CBC #### [facility] [address] [place] [address] USAGFR/1.73 sq M.predicted MDRD (S/P/Bld) [Vol rate/Area] mL/min/{1.73_m2}NormalThe [facility] Physician GroupComment on above:Performed By: #### CMP, MG, PHOS, CBC #### [facility] [address] [place] [address] USAGlobulin (S) [Mass/Vol]2.6 g/dLNormalThe [facility] Physician GroupComment on above:Performed By: #### CMP, MG, PHOS, CBC #### [facility] [address] [place] [address] USAGlucose [Mass/Vol]256 mg/cFQrtf29-005Jwp [facility] Physician GroupComment on above:Result Comment: Random Glucose Reference Range is dependent on time and content of last meal. Glucose of more than 200 mg/dL in a nonstressed, ambulatory subject supports the diagnosis of Diabetes Mellitus. ADA recommended reference rangePerformed By: #### CMP, MG, PHOS, CBC #### [facility] [address] [place] [address] USAPotassium [Moles/Vol]4.2 mmol/LNormal3.5-5.1The [facility] Physician GroupComment on above:Performed By: #### CMP, MG, PHOS, CBC #### [facility] [address] [place] [address] USAProtein [Mass/Vol]6.4 g/dLNormal6.4-8.9The [facility] Physician GroupComment on above:Performed By: #### CMP, MG, PHOS, CBC #### [facility] [address] [place] [address] USASodium [Moles/Vol]140 mmol/YPoteio844-442Xkr [facility] Physician GroupComment on above:Performed By: #### CMP, MG, PHOS, CBC #### [facility] [address] [place] [address] USAUrea nitrogen [Mass/Vol]9 mg/dLNormal7-25The [facility] Physician GroupComment on above:Performed By: #### CMP, MG, PHOS, CBC #### [facility] [address] [place] [address] USACreatinine [Mass/volume] in Serum or PlasmaOrdered By: Angelique Russell on 72-83-5634Ygusthbsjv [Mass/Vol]Creatinine [Mass/volume] in Serum or Plasma0.60-1.20[facility] Medical CenterCreatinine [Mass/volume] in UrineOrdered By: Angelique Russell on 10-21-4505Ncwyntldbl (U) [Mass/Vol]Creatinine [Mass/volume] in UrineDiley Ridge Medical CenterComment on above:No reference range establishedECG 12 [place] 02-51-4429Lbbnsm sinus rhythmCPACS [facility] Work Phone: Eosinophils Auto (Bld) [#/Vol]Ordered By: Nataliya Jane on 96-18-6632Jjzpslaakdm (Bld) [#/Vol]Automated eosinophil count 0.0-0.45D[facility] Medical CenterEosinophils/100 WBC Auto (Bld)Ordered By: Nataliya Jane on 24-51-4019Hddbidyxlyr/100 WBC (Bld)Automated eosinophil %. [facility] Medical CenterErythrocyte distribution width Auto (RBC) [Ratio]Ordered By: Nataliya Jane on 30-16-9674Zgoxomhiytv distribution width (RBC) [Ratio]Erythrocyte distribution width [Ratio] by Automated count11.9-15.3 [facility] Medical CenterFlowcytometry Neogenomicon 06-26-2024 Flowcytometry [facility] HospitalgenomicNoSwain Community Hospital Physician GroupComment on above: Result Comment: See report. Scanned copy available in EMR.Performed By: #### CMP, MG, PHOS, CBC #### [facility] [address] [place] [address] USAGlobulin Calc (S) [Mass/Vol]Ordered By: Angelique Russell on 65-32-4548Jhtvtmvy (S) [Mass/Vol]Serum globulin measurement by calculation (mass/volume)[facility] Medical CenterGlucose [Mass/volume] in Serum or PlasmaOrdered By: Angelique Russell on 09-23-1653Jfyncwp [Mass/Vol]Glucose [Mass/volume] in Serum or VinhmgXooo94-689ZkcuibewsDiley Ridge Medical Center Comment on above:ADA recommended reference rangeRandom Glucose Reference Range is dependent on time and content of last meal. Glucose of more than 200 mg/dL in a nonstressed, ambulatory subject supports the diagnosisof Diabetes Mellitus. Hematocrit Auto (Bld) [Volume fraction]Ordered By: Nataliya Olsenroger on 06-26-2024 Hematocrit (Bld) [Volume fraction]Hematocrit [Volume Fraction] of Blood by Automated count34.0-46.4FCleveland Clinic South Pointe HospitalHemoglobin [Mass/volume] in BloodOrdered By: Nataliya Gaonaoren on 19-18-3826Fxbjenyobe (Bld) [Mass/Vol]Hemoglobin [Mass/volume] in MalyaQaaw49.8-15.4FCleveland Clinic South Pointe HospitalJAK 2 Neogenomicon 91-22-3298SSY 2 [facility] HospitalgenomicNoSwain Community Hospital Physician GroupComment on above:Result Comment: See report. Scanned copy available in EMR.Performed By: #### CMP, MG, PHOS, CBC #### [facility] [address] [place] [address] USALeukocytes [#/volume] corrected for nucleated erythrocytes in Blood by Automated counOrdered By: Nataliya Gaonaoren on 27-40-4291BLH corrected for nucl RBC Auto (Bld) [#/Vol]Leukocytes [#/volume] corrected for nucleated erythrocytes in Blood by Automated coun3.8-11.6FCleveland Clinic South Pointe Hospital Lipid Panelon 28-11-8457Qqalahwoguc [Mass/Vol]93 mg/vJFao263-408Inm [facility] Physician GroupComment on above:Result Comment: Chol less than 200 mg/dl low risk Chol 201-239 mg/dl borderline risk Chol 240 mg/dl and greater high riskPerformed By: #### CMP, MG, PHOS, CBC #### [facility] [address] [place] [address] USACholesterol in HDL [Mass/Vol]27 mg/hPBnzscn26-62Zbt [facility] Physician GroupComment on above:Result Comment: HDL CHOL ATP-III CLASSIFICATION Cardiovascular Risk HDL > or equal to 60 mg/dL LOW HDL < 40 mg/dL HIGHPerformed By: #### CMP, MG, PHOS, CBC #### [facility] [address] [place] [id number] USACholesterol.total/Cholesterol in HDL [Mass ratio]3.4 {ratio}Normal<5.0The [facility] Physician GroupComment on above:Performed By: #### CMP, MG, PHOS, CBC #### [facility] [address] [place] [address] USALDL Cholesterol,Nfdhkyycaq34 mg/dLNormal0-100The [facility] Physician GroupComment on above:Result Comment: LDL ATP III CLASSIFICATION LDL less than 100 mg/dL Optimal LDL 100-129 mg/dL Near or above optimal LDL 130-159 mg/dL Borderline high LDL 160-189 mg/dL High LDL greater than 189 mg/dL Very highPerformed By: #### CMP, MG, PHOS, CBC #### [facility] [address] [place] [address] USATriglyceride w/Xqovpm580 mg/dLHigh0-149The [facility] Physician GroupComment on above:Result Comment: TRIG ATP III CLASSIFICATION TRIG less than 150 mg/dL Normal TRIG 150-199 mg/dL Borderline high TRIG 200-500 mg/dL High TRIG greater than 500 mg/dL Very high Standard traceable to the Center for Disease Conrtrol and Prevention (CDC) test method.Performed By: #### CMP, MG, PHOS, CBC #### [facility] [address] [place] [id number] USAVLDL HZZRHIGFAXF07 mg/dLNormalThe [facility] Physician GroupComment on above:Performed By: #### CMP, MG, PHOS, CBC #### [facility] [address] [place] [id number] USALymphocytes Auto (Bld) [#/Vol]Ordered By: Nataliya Jane on 77-17-7628Uvvokwyhuws (Bld) [#/Vol]Lymphocytes [#/volume] in Blood by Automated count1.00-4.8D[facility] Medical CenterLymphocytes/100 WBC Auto (Bld) Ordered By: Nataliya Jane on 28-82-9008Srvaobztzdg/100 WBC (Bld)Lymphocytes/100 leukocytes in Blood by Automated count.[facility] Medical CenterMCH Auto (RBC) [Entitic mass]Ordered By: Nataliya Lucinda on 73-15-1041SYR (RBC) [Entitic mass]MCH [Entitic mass] by Automated count24.7-34.3FCorey Hospital Auto (RBC) [Mass/Vol]Ordered By: Nataliya Gaonaoren on 89-81-4129WYFZ (RBC) [Mass/Vol]MCHC [Mass/volume] by Automated count32.0-35.0Grant HospitalV Auto (RBC) [Entitic vol]Ordered By: Nataliya Gaonaoren on 44-16-1244FMA (RBC) [Entitic vol]MCV [Entitic volume] by Automated fwfmu16-787 [facility] CenterMicroAlb Creat Ratio,Uon 34-37-2544Nwuignj DL <= 20 mg/L (U) [Mass/Vol]mg/dLNormal0.0-1.8The [facility] Physician GroupComment on above:Performed By: #### CMP, MG, PHOS, CBC #### [facility] [address] [place] [address] USACreatinine, Urine (Random)65.00 mg/dLNormalThNell J. Redfield Memorial Hospital Physician GroupComment on above:Result Comment: No reference range established Performed By: #### CMP, MG, PHOS, CBC #### [facility] [address] [place] [address] USAMicroalbumin/Creatinine RatioNot performedNormal0.0-30.0 The [facility] Physician GroupComment on above:Result Comment: PERFORMED BY: [place] [address] PATHOLOGIST ADJUNCT FACULTY INSTRUCTOR LE MACE M.D.Performed By: #### CMP, MG, PHOS, CBC #### [facility] [address] [place] [id number] USAMicroalbumin [Mass/volume] in UrineOrdered By: Angelique Russell on 77-07-6843Sfnjwbh DL <= 20 mg/L (U) [Mass/Vol]Microalbumin [Mass/volume] in Urine0.0-1.8[facility] Medical CenterMonocytes Auto (Bld) [#/Vol]Ordered By: Nataliya Jane on 66-32-5069Qmdwhafxm (Bld) [#/Vol] Automated blood monocyte count0.0-0.8[facility] Monocytes/100 WBC Auto (Bld)Ordered By: Nataliya Jane on 96-43-2202Njluccsaa/100 WBC (Bld)Automated monocyte %.[facility] Medical CenterNatriuretic peptide B [Mass/Vol]Ordered By: Roland Faust on 80-60-0588Jflavjgmrtk peptide B (Bld) [Mass/Vol]BNP ser/plas5-100[facility] Neutrophils Auto (Bld) [#/Vol]Ordered By: Nataliya Jane on 88-12-2259Kdpqnzxwyjz (Bld) [#/Vol]Neutrophils [#/volume] in Blood by Automated count1.8-7.7FCleveland Clinic South Pointe HospitalNeutrophils/100 WBC Auto (Bld)Ordered By: Nataliya Jane on 43-08-7081Nhjxvvvxbws/100 WBC (Bld)Automated neutrophil %.[facility] CenterNo Panel InformationOrdered By: Angelique Russell on 06-26-2024 Estimated GFR (CKD-EPI)> 60.0 mL/MinDiley Ridge Medical CenterPharmacy Creatinine Clearance (ChemN/AFCleveland Clinic South Pointe HospitalNo Panel InformationOrdered By: Nataliya Jane on 75-97-6767EPF/ablSee [facility]cy HospitalComment on above:See report. Scanned copy available in EMR.JAK2 U641PMgs Mercy HospitalComment on above:See report. Scanned copy available in EMR.Nucleated erythrocytes [Presence] in Blood by Automated countOrdered By: Nataliya Jane on 42-04-0772Orpvaxhnh RBC Auto Ql (Bld)Nucleated erythrocytes [Presence] in Blood by Automated count0-0.5FCleveland Clinic South Pointe HospitalPlatelet mean volume Auto (Bld) [Entitic vol]Ordered By: Nataliya Jane on 50-13-6276Osskfvqm mean volume (Bld) [Entitic vol]Platelet mean volume [Entitic volume] in Blood by Automated count6.3-10.7FCleveland Clinic South Pointe HospitalPlatelets Auto (Bld) [#/Vol]Ordered By: Nataliya Jane on 50-26-8561Somtgccyz (Bld) [#/Vol]Platelets [#/volume] in Blood by Automated erqsdQrf016-131MbprdfibrDiley Ridge Medical CenterPotassium [Moles/volume] in Serum or PlasmaOrdered By: Angelique Russell on 12-05-4646Mqpyxfwaw [Moles/Vol] Potassium [Moles/volume] in Serum or Plasma3.5-5.1FCleveland Clinic South Pointe HospitalProtein [Mass/volume] in Serum or PlasmaOrdered By: Angelique Russell on 40-72-3626Dwyrlvr [Mass/Vol]Protein [Mass/volume] in Serum or Plasma6.4-8.9 [facility] CenterRBC Auto (Bld) [#/Vol]Ordered By: Nataliya Jane on 95-43-4762QKF (Bld) [#/Vol]Erythrocytes [#/volume] in Blood by Automated count3.60-5.00Holzer Hospitalerum or plasma albumin/globulin mass ratioOrdered By: Angelique Russell on 10-58-6316Oevluyj/Globulin [Mass ratio] Serum or plasma albumin/globulin mass ratioDiley Ridge Medical Center Serum or plasma anion gap determinationOrdered By: Angelique Russell on 06-26-2024 Anion gap [Moles/Vol]Serum or plasma anion gap determination6.0-15.0Holzer Hospitalerum or plasma total cholesterol/high density lipoprotein (HDL) cholesterol mass ratOrdered By: Angelique Russell on 06-26-2024 Cholesterol.total/Cholesterol in HDL [Mass ratio]Serum or plasma total cholesterol/high density lipoprotein (HDL) cholesterol mass rat<5.0Holzer Hospitalodium [Moles/volume] in Serum or PlasmaOrdered By: Angelique Russell on 58-59-8580Ehrdbx [Moles/Vol]Sodium [Moles/volume] in Serum or Ycjcap245-263PtahuvkezDiley Ridge Medical CenterThyroid Stim Hormone w/Rflxon 02-00-1144Qlsuhyu Stim Hormone w/Rflx1.45 u[iU]/mLNormal0.45-5.33The [facility] Physician GroupComment on above:Result Comment: PERFORMED BY: [place] [address] PATHOLOGIST ADJUNCT FACULTY INSTRUCTOR LE MACE M.D.Performed By: #### CMP, MG, PHOS, CBC #### [facility] [address] [place] [address] USAThyrotropin [Units/volume] in Serum or PlasmaOrdered By: Angelique Russell on 37-32-2596MMA QnThyrotropin [Units/volume] in Serum or Plasma 0.45-5.33[facility] Medical CenterTriglyceride [Mass/volume] in Serum or PlasmaOrdered By: Angelique Russell on 46-65-7298Ddwdhrrsaeif [Mass/Vol]Triglyceride [Mass/volume] in Serum or PlasmaHigh0-149[facility] Comment on above:TRIG ATP III CLASSIFICATIONTRIG less than 150 mg/dL NormalTRIG 150-199 mg/dL Borderline highTRIG 200-500 mg/dL High TRIG greater than 500 mg/dL Very highStandard traceable to the Center for Disease Conrtrol and Prevention (CDC) test method.Urea nitrogen [Mass/volume] in Serum or PlasmaOrdered By: Angelique Russell on 17-17-0796Hfab nitrogen [Mass/Vol]Urea nitrogen [Mass/volume] in Serum or Plasma7[facility] Medical CenterUrine microalbumin/creatinine mass ratioOrdered By: Angelique Russell on 06-26-2024 Albumin/Creatinine DL <= 20 mg/L (U) [Mass ratio]Urine microalbumin/creatinine mass ratioDiley Ridge Medical CenterComment on above:Test not performed WBC Auto (Bld) [#/Vol]Ordered By: Nataliya Jane on 32-12-3293VHL (Bld) [#/Vol] Leukocytes [#/volume] in Blood by Automated count3.8-11.6FCleveland Clinic South Pointe HospitalMR head/brain wo/w conon 52-57-3281GR head/brain wo/w [facility] [place] [address] [id number] MRI Report Signed Patient: Taye Gay MR#: [id number] 19 : 1955 Acct:[id number] Age/Sex: 68 / F ADM Date: 05/25/24 Loc: MR Room: Type: [facility] CLI Attending Dr: Sandra Keita DO Copies [...] Eugenio Lazo M.D.05/25/2024 7:59 PM Dictation Location: [place] [address] Transcribed By: [facility] 05/25/241958 Dictated By: Eugenio Lazo DO 05/25/241953 Signed By: 05/25/241958[facility] Physician GroupMagnetic resonance imaging reportOrdered By: Eugenio Lazo on 00-48-7813Clxfc [facility] Main [place] [address] [place] [address] MRI Report Signed Patient: Taye Gay MR#: [id number] : 1955 Acct:[id number] Age/Sex: 68 / F ADM Date: 5 Loc: MR Room: Type: [facility] CLI Attending Dr: Sandra Keita DO Copies [...] Eugenio Lazo M.D.05/25/2024 7:59 PM Dictation Location: [place] [address] Transcribed By: [facility] 05/25/241958 Dictated By: Eugenio Lazo DO 05/25/241953 Signed By: 05/25/241958 [facility] Medical CenterAlanine aminotransferase [Enzymatic activity/volume] in Serum or PlasmaOrdered By: Priscilla Lang on 71-98-0132OLV [Catalytic activity/Vol]Alanine aminotransferase [Enzymatic activity/volume] in Serum or Plasma7-52[facility] Medical CenterAlbumin [Mass/volume] in Serum or Plasma by Bromocresol green (BCG) dye binding methoOrdered By: Priscilla Lang on 28-94-8408Zbscxli BCG dye [Mass/Vol]Albumin [Mass/volume] in Serum or Plasma by Bromocresol green (BCG) dye binding metho3.5-5.7FCleveland Clinic South Pointe HospitalAlkaline phosphatase [Enzymatic activity/volume] in Serum or PlasmaOrdered By: Priscilla Lang on 83-29-3486AME [Catalytic activity/Vol] Alkaline phosphatase [Enzymatic activity/volume] in Serum or Wzowph13-619 [facility] CenterAspartate aminotransferase [Enzymatic activity/volume] in Serum or PlasmaOrdered By: Priscilla Lang on 11-94-1784GMK [Catalytic activity/Vol]Aspartate aminotransferase [Enzymatic activity/volume] in Serum or Bbwxgu93-77UjyiswdznDiley Ridge Medical CenterBasophils Auto (Bld) [#/Vol]Ordered By: Priscilla Lnag on 05-33-7803Zfiedhyyf (Bld) [#/Vol]Automated basophil count0.0-0.2FCleveland Clinic South Pointe HospitalBasophils/100 WBC Auto (Bld)Ordered By: Priscilla Lang on 11-61-5963Aelzbqwcu/100 WBC (Bld)Automated basophil %.[facility] Medical CenterBilirubin.total [Mass/volume] in Serum or PlasmaOrdered By: Priscilla Lang on 86-33-4487Micodwxne [Mass/Vol] Bilirubin.total [Mass/volume] in Serum or Plasma0.3-1.0[facility] CenterCalcium [Mass/volume] in Serum or PlasmaOrdered By: Priscilla Lang on 72-22-3090Izkbtpw [Mass/Vol]Calcium [Mass/volume] in Serum or Plasma8.6-10.3 [facility] CenterCarbon dioxide, total [Moles/volume] in Serum or PlasmaOrdered By: Priscilla Lang on 33-79-7250LY6 [Moles/Vol]Carbon dioxide, total [Moles/volume] in Serum or Shmslx08.0-31.0[facility] CenterChloride [Moles/volume] in Serum or PlasmaOrdered By: Priscilla Aggarwal on 09-35-8832Fbjfivsu [Moles/Vol]Chloride [Moles/volume] in Serum or Ialbcd49-964 [facility] CenterComplete Blood Count Auto Diffon 04-30-2024 Basophils (Bld) [#/Vol]0.0 10*3/uLNormal0.0-0.2[facility] Comment on above:Result Comment: PERFORMED BY: [place] [address] PATHOLOGIST ADJUNCT FACULTY INSTRUCTOR LE MACE M.D.Performed By: #### CMP, MG, PHOS, CBC #### [place] [address] USABasophils/100 WBC (Bld)0.4 %Normal.The [facility] Physician GroupComment on above:Performed By: #### CMP, MG, PHOS, CBC #### [place] [address] USAEosinophils (Bld) [#/Vol]0.2 10*3/uLNormal0.0-0.45The [facility] Physician GroupComment on above:Performed By: #### CMP, MG, PHOS, CBC #### [place] [address] USAEosinophils/100 WBC (Bld)2.9 %Normal.The [facility] Physician GroupComment on above:Performed By: #### CMP, MG, PHOS, CBC #### [place] [address] USAErythrocyte distribution width (RBC) [Ratio]15.4 %High 11.9-15.3The [facility] Physician GroupComment on above:Performed By: #### CMP, MG, PHOS, CBC #### [place] [address] USAHematocrit (Bld) [Volume fraction]44.3 %Khgity15.0-46.4The [facility] Physician GroupComment on above:Performed By: #### CMP, MG, PHOS, CBC #### [place] [address] USAHemoglobin (Bld) [Mass/Vol]14.7 g/lWWfnnps00.8-15.4The [facility] Physician GroupComment on above:Performed By: #### CMP, MG, PHOS, CBC #### [place] [address] USALymphocytes (Bld) [#/Vol]1.8 10*3/uLNormal1.00-4.8The [facility] Physician GroupComment on above:Performed By: #### CMP, MG, PHOS, CBC #### [place] [address] USALymphocytes/100 WBC (Bld)24.9 %Normal.The [facility] Physician GroupComment on above:Performed By: #### CMP, MG, PHOS, CBC #### [address] (RBC) [Entitic mass]31.4 hjVttnbj13.7-34.3The [facility] Physician GroupComment on above:Performed By: #### CMP, MG, PHOS, CBC #### [address] (RBC) [Entitic vol]94.4 pRIjgdre01-209Mlq [facility] Physician GroupComment on above:Performed By: #### CMP, MG, PHOS, CBC #### [place] [address] USAMean Corpuscular HGB Conc33.3 g/cCOabtek73.0-35.0The [facility] Physician GroupComment on above:Performed By: #### CMP, MG, PHOS, CBC #### [place] [address] USAMonocytes (Bld) [#/Vol]0.6 10*3/uLNormal0.0-0.8The [facility] Physician GroupComment on above:Performed By: #### CMP, MG, PHOS, CBC #### [place] [address] USAMonocytes/100 WBC (Bld)8.3 %Normal.The [facility] Physician GroupComment on above:Performed By: #### CMP, MG, PHOS, CBC #### [place] [address] USANeutrophils (Bld) [#/Vol]4.6 10*3/uLNormal1.8-7.7The [facility] Physician GroupComment on above:Performed By: #### CMP, MG, PHOS, CBC #### [place] [address] USANeutrophils/100 WBC (Bld)63.5 %Normal.The [facility] Physician GroupComment on above:Performed By: #### CMP, MG, PHOS, CBC #### [facility] [address] [place] [address] USANRBC%0.0 /100{WBC}Normal0-0.5The [facility] Comment on above:Performed By: #### CMP, MG, PHOS, CBC #### [place] [address] USAPlatelet mean volume (Bld) [Entitic vol]9.5 fLNormal 6.3-10.7The [facility] Physician GroupComment on above:Performed By: #### CMP, MG, PHOS, CBC #### [place] [address] USAPlatelets (Bld) [#/Vol]119 10*3/nHWfq671-789Mng [facility] Physician GroupComment on above:Performed By: #### CMP, MG, PHOS, CBC #### [place] [address] USARBC (Bld) [#/Vol]4.70 10*6/uLNormal3.60-5.00The [facility] Physician GroupComment on above:Performed By: #### CMP, MG, PHOS, CBC #### [place] [address] USAWBC (Bld) [#/Vol]7.3 10*3/uLNormal3.8-11.6The [facility] Physician GroupComment on above:Performed By: #### CMP, MG, PHOS, CBC #### [place] [address] USAComprehensive Metabolic Panelon 62-95-8326Bovftse [Mass/Vol]3.5 g/dLNormal3.5-5.7The [facility] Physician GroupComment on above: Performed By: #### CMP, MG, PHOS, CBC #### [place] [address] USAAlbumin/Globulin [Mass ratio]1.2 {ratio}NormalThe [facility] Physician GroupComment on above:Performed By: #### CMP, MG, PHOS, CBC #### [facility] [address] [place] [address] USAALP [Catalytic activity/Vol]85 U/FXbrqye43-929Ehi [facility] Physician GroupComment on above:Performed By: #### CMP, MG, PHOS, CBC #### [facility] [address] [place] [address] USAALT [Catalytic activity/Vol]16 U/LNormal7-52The [facility] Physician GroupComment on above:Performed By: #### CMP, MG, PHOS, CBC #### [facility] [address] [place] [address] USAAnion gap [Moles/Vol]10.9 mmol/LNormal6.0-15.0The [facility] Physician GroupComment on above:Performed By: #### CMP, MG, PHOS, CBC #### [facility] [address] [place] [address] USAAST [Catalytic activity/Vol]23 U/NRvywno50-19Rbp [facility] Physician GroupComment on above:Performed By: #### CMP, MG, PHOS, CBC #### [facility] [address] [place] [address] USABilirubin [Mass/Vol]0.5 mg/dLNormal0.3-1.0The [facility] Physician GroupComment on above:Performed By: #### CMP, MG, PHOS, CBC #### [facility] [address] [place] [address] USACalcium [Mass/Vol]9.3 mg/dLNormal8.6-10.3The [facility] Physician GroupComment on above:Performed By: #### CMP, MG, PHOS, CBC #### [facility] [address] [place] [address] USAChloride [Moles/Vol]106 mmol/TLnissg19-125Nrn [facility] Physician GroupComment on above:Performed By: #### CMP, MG, PHOS, CBC #### [facility] [address] [place] [address] USACO2 [Moles/Vol]26.9 mmol/WMcakqw24.0-31.0The [facility] Physician GroupComment on above:Performed By: #### CMP, MG, PHOS, CBC #### [facility] [address] [place] [address] USACreatinine [Mass/Vol]0.80 mg/dLNormal0.60-1.20ThNell J. Redfield [facility] Hospital Physician GroupComment on above:Performed By: #### CMP, MG, PHOS, CBC #### [facility] [address] [place] [address] USACreatinine Clr Calc Nzjlaqmz07.38NormFlorida Medical Center Physician GroupComment on above:Performed By: #### CMP, MG, PHOS, CBC #### [facility] [address] [place] [address] USAGFR/1.73 sq M.predicted MDRD (S/P/Bld) [Vol rate/Area] mL/min/{1.73_m2}NormalThe [facility] Physician GroupComment on above:Performed By: #### CMP, MG, PHOS, CBC #### [facility] [address] [place] [address] USAGlobulin (S) [Mass/Vol]2.9 g/dLNoSwain Community Hospital Physician GroupComment on above:Performed By: #### CMP, MG, PHOS, CBC #### [facility] [address] [place] [address] USAGlucose [Mass/Vol]130 mg/bPYstc51-613Msi [facility] Physician GroupComment on above:Result Comment: Random Glucose Reference Range is dependent on time and content of last meal. Glucose of more than 200 mg/dL in a nonstressed, ambulatory subject supports the diagnosis of Diabetes Mellitus. ADA recommended reference rangePerformed By: #### CMP, MG, PHOS, CBC #### [facility] [address] [place] [address] USAPotassium [Moles/Vol]3.8 mmol/LNormal3.5-5.1The [facility] Physician GroupComment on above:Performed By: #### CMP, MG, PHOS, CBC #### [facility] [address] [place] [address] USAProtein [Mass/Vol]6.4 g/dLNormal6.4-8.9The [facility] Physician GroupComment on above:Performed By: #### CMP, MG, PHOS, CBC #### [facility] [address] [place] [address] USASodium [Moles/Vol]140 mmol/GXxijvj393-380Rqp [facility]ician [facility] HospitalComment on above:Performed By: #### CMP, MG, PHOS, CBC #### [facility] [address] [id number] USAUrea nitrogen [Mass/Vol]9 mg/dLNormal7-25The [facility] Physician GroupComment on above:Performed By: #### CMP, MG, PHOS, CBC #### [facility] [address] [place] [address] USACreatinine [Mass/volume] in Serum or PlasmaOrdered By: Priscilla Lang on 93-52-6753Rbzatayddc [Mass/Vol]Creatinine [Mass/volume] in Serum or Plasma0.60-1.20[facility] Medical CenterEosinophils Auto (Bld) [#/Vol]Ordered By: Priscilla Lang on 52-81-2057Uvddwldiomj (Bld) [#/Vol]Automated eosinophil count0.0-0.45[facility] CenterEosinophils/100 WBC Auto (Bld)Ordered By: Priscilla Lang on 11-15-6617Zskohafsjdi/100 WBC (Bld) Automated eosinophil %.[facility] CenterErythrocyte distribution width Auto (RBC) [Ratio]Ordered By: Priscilla Lang on 80-62-7504Fbsnrrskiug distribution width (RBC) [Ratio]Erythrocyte distribution width [Ratio] by Automated vgqxoQkzt40.9-15.3FCleveland Clinic South Pointe HospitalGlobulin Calc (S) [Mass/Vol]Ordered By: Priscilla Lagn on 83-29-7666Tzimitdi (S) [Mass/Vol]Serum globulin measurement by calculation (mass/volume)[facility] Medical CenterGlucose Glucometer (BldC) [Mass/Vol]Ordered By: Priscilla Lang on 94-33-4804Qqakxck [Mass/Vol]Capillary blood glucose measurement by glucometer (mass/volume)[facility] CenterComment on above:Random Glucose Reference Range is dependent on time and content of last meal. Glucose of more than 200 mg/dL in a nonstressed, ambulatory subject supports the diagnosis of Diabetes Mellitus.Glucose Poct Glucometerson 07-10-6278Igqdquu [Mass/Vol]154 mg/dLNoSwain Community Hospital Physician GroupComment on above:Result Comment: Random Glucose Reference Range is dependent on time and content of last meal. Glucose of more than 200 mg/dL in a nonstressed, ambulatory subject supports the diagnosis of Diabetes Mellitus. PERFORMED BY: [place] [address] PATHOLOGIST ADJUNCT FACULTY INSTRUCTOR LE MACE M.D.Performed By: #### CMP, MG, PHOS, CBC #### [address] [address] USAGlucose [Mass/Vol]134 mg/dLNoSwain Community Hospital Physician GroupComment on above:Result Comment: Random Glucose Reference Range is dependent on time and content of last meal. Glucose of more than 200 mg/dL in a nonstressed, ambulatory subject supports the diagnosis of Diabetes Mellitus. PERFORMED BY: [place] [id number] PATHOLOGIST ADJUNCT FACULTY INSTRUCTOR LE MACE M.D.Performed By: #### CMP, MG, PHOS, CBC #### [facility] [address] [place] [address] USAGlucose [Mass/volume] in Serum or PlasmaOrdered By: Priscilla Lang on 14-46-9260Lanlykm [Mass/Vol]Glucose [Mass/volume] in Serum or Plasma Anhx65-662LclosdvysDiley Ridge Medical CenterComment on above:ADA recommended reference rangeRandom Glucose Reference Range is dependent on time and content of last meal. Glucose of more than 200 mg/dL in a nonstressed, ambulatory subject supports the diagnosisof Diabetes Mellitus.Hematocrit Auto (Bld) [Volume fraction]Ordered By: Priscilla Lang on 26-89-4968Xidklosppx (Bld) [Volume fraction]Hematocrit [Volume Fraction] of Blood by Automated count34.0-46.4 [facility] CenterHemoglobin [Mass/volume] in BloodOrdered By: Priscilla Lang on 46-50-8388Duqcsknkos (Bld) [Mass/Vol]Hemoglobin [Mass/volume] in Blood11.8-15.4FCleveland Clinic South Pointe HospitalLeukocytes [#/volume] corrected for nucleated erythrocytes in Blood by Automated counOrdered By: Priscilla Lang on 48-49-7176ZHM corrected for nucl RBC Auto (Bld) [#/Vol]Leukocytes [#/volume] corrected for nucleated erythrocytes in Blood by Automated coun 3.8-11.6FCleveland Clinic South Pointe HospitalLymphocytes Auto (Bld) [#/Vol]Ordered By: Priscilla Lang on 13-33-3375Govheusjyed (Bld) [#/Vol]Lymphocytes [#/volume] in Blood by Automated count1.00-4.8[facility] Lymphocytes/100 WBC Auto (Bld)Ordered By: Priscilla Lang on 04-30-2024 Lymphocytes/100 WBC (Bld)Lymphocytes/100 leukocytes in Blood by Automated count. [facility] Medical CenterMCH Auto (RBC) [Entitic mass]Ordered By: Priscilla Lang on 56-19-9094DHZ (RBC) [Entitic mass]MCH [Entitic mass] by Automated count24.7-34.3FCleveland Clinic South Pointe HospitalMCHC Auto (RBC) [Mass/Vol]Ordered By: Priscilla Lang on 76-98-0533XUQJ (RBC) [Mass/Vol]MCHC [Mass/volume] by Automated count32.0-35.0[facility] CenterMCV Auto (RBC) [Entitic vol]Ordered By: Priscilla Lang on 07-99-3826PZJ (RBC) [Entitic vol]MCV [Entitic volume] by Automated -892PxoexteqfDiley Ridge Medical CenterMagnesiumon 50-03-0720Dvblgmnzo [Mass/Vol]1.7 mg/dLLow1.9-2.7The [facility] Comment on above:Result Comment: PERFORMED BY: [facility] [address] [place], [place] [address] PATHOLOGIST ADJUNCT FACULTY INSTRUCTOR LE MACE M.D.Performed By: #### CMP, MG, PHOS, CBC #### [facility] [address] [place] [address] USAMagnesium [Mass/volume] in Serum or PlasmaOrdered By: Priscilla aLng on 36-21-8404Rslsocxty [Mass/Vol]Magnesium [Mass/volume] in Serum or PlasmaLow1.9-2.7FCleveland Clinic South Pointe HospitalMonocytes Auto (Bld) [#/Vol] Ordered By: Priscilla Lang on 87-60-2896Uukxddlrb (Bld) [#/Vol]Automated blood monocyte count0.0-0.8[facility] CenterMonocytes/100 WBC Auto (Bld)Ordered By: Priscilla Lang on 01-13-7743Dihmxbrew/100 WBC (Bld)Automated monocyte %.[facility] Medical CenterNeutrophils Auto (Bld) [#/Vol] Ordered By: Priscilla Lang on 84-91-6387Cjiwuzwrqnx (Bld) [#/Vol]Neutrophils [#/volume] in Blood by Automated count1.8-7.7FC[facility] Neutrophils/100 WBC Auto (Bld)Ordered By: Priscilla Lang on 04-30-2024 Neutrophils/100 WBC (Bld)Automated neutrophil %.[facility] CenterNo Panel InformationOrdered By: Priscilla Lang on 80-08-5639Bvhwkkaoa GFR (CKD-EPI)> 60.0 mL/MinDiley Ridge Medical CenterPharmacy Creatinine Clearance (Chem82.38[facility] Medical CenterNucleated erythrocytes [Presence] in Blood by Automated countOrdered By: Priscilla Lang on 04-30-2024 Nucleated RBC Auto Ql (Bld)Nucleated erythrocytes [Presence] in Blood by Automated count0-0.5FCleveland Clinic South Pointe HospitalPhosphate [Mass/volume] in Serum or PlasmaOrdered By: Priscilla Lang on 16-98-0720Hapqyhsok [Mass/Vol] Phosphate [Mass/volume] in Serum or Plasma2.5-4.5FCleveland Clinic South Pointe HospitalPhosphoruson 88-87-9290Lgzkeozqf [Mass/Vol]2.9 mg/dLNormal2.5-4.5The [facility] Physician GroupComment on above:Performed By: #### CMP, MG, PHOS, CBC #### [facility] [address] [id number] USAPlatelet mean volume Auto (Bld) [Entitic vol]Ordered By: Priscilla Lang on 25-32-2022Qnziykth mean volume (Bld) [Entitic vol]Platelet mean volume [Entitic volume] in Blood by Automated count6.3-10.7FCleveland Clinic South Pointe HospitalPlatelets Auto (Bld) [#/Vol]Ordered By: Priscilla Lang on 75-87-6781Sqstjnydu (Bld) [#/Vol]Platelets [#/volume] in Blood by Automated ofsdjApw629-204NcbjplzklDiley Ridge Medical CenterPotassium [Moles/volume] in Serum or PlasmaOrdered By: Priscilla Lang on 41-15-3887Hgbikxhbu [Moles/Vol] Potassium [Moles/volume] in Serum or Plasma3.5-5.1FCleveland Clinic South Pointe HospitalProtein [Mass/volume] in Serum or PlasmaOrdered By: Priscilla Lang on 29-90-3137Zprucqf [Mass/Vol]Protein [Mass/volume] in Serum or Plasma6.4-8.9 [facility] CenterRBC Auto (Bld) [#/Vol]Ordered By: Priscilla Lang on 19-42-5562HSG (Bld) [#/Vol]Erythrocytes [#/volume] in Blood by Automated count3.60-5.00Holzer Hospitalerum or plasma albumin/globulin mass ratioOrdered By: Priscilla Lang on 68-51-1935Zocqyrp/Globulin [Mass ratio] Serum or plasma albumin/globulin mass ratioDiley Ridge Medical Center Serum or plasma anion gap determinationOrdered By: Priscilla Lang on 04-30-2024 Anion gap [Moles/Vol]Serum or plasma anion gap determination6.0-15.0Holzer Hospitalodium [Moles/volume] in Serum or PlasmaOrdered By: Priscilla Lang on 38-87-8921Mrpuzr [Moles/Vol]Sodium [Moles/volume] in Serum or Plasma 136-145D[facility] Medical CenterUrea nitrogen [Mass/volume] in Serum or PlasmaOrdered By: Priscilla Lang on 90-01-5918Fxdf nitrogen [Mass/Vol]Urea nitrogen [Mass/volume] in Serum or Plasma7-25[facility] WBC Auto (Bld) [#/Vol]Ordered By: Priscilla Lang on 62-54-6403AMQ (Bld) [#/Vol] Leukocytes [#/volume] in Blood by Automated count3.8-11.6FCleveland Clinic South Pointe HospitalAmphetamine Screen Ql (U)Ordered By: Priscilla Lang on 04-29-2024 Amphetamines Ql (U)Amphetamines screenNegativeDiley Ridge Medical Center Barbiturates [Presence] in Urine by Screen methodOrdered By: Priscilla Lang on 08-33-8442Ceahojffwval Screen Ql (U)Barbiturates [Presence] in Urine by Screen methodNegativeDiley Ridge Medical CenterBasic Metabolic Panelon 85-03-8054Lhjwi gap [Moles/Vol]11.3 mmol/LNormal6.0-15.0The [facility] Physician GroupComment on above:Order Comment: FASTING NPerformed By: #### CMP, MG, PHOS, CBC #### [facility] [address] [place] [address] USACalcium [Mass/Vol]8.9 mg/dLNormal8.6-10.3The [facility] Physician GroupComment on above:Order Comment: FASTING NPerformed By: #### CMP, MG, PHOS, CBC #### [facility] [address] [id number] USAChloride [Moles/Vol]106 mmol/NFyyzgf97-216Yos [facility] Physician GroupComment on above:Order Comment: FASTING NPerformed By: #### CMP, MG, PHOS, CBC #### [facility] [address] [place] [id number] USACO2 [Moles/Vol]25.2 mmol/HHfjzta30.0-31.0The [facility] Physician GroupComment on above:Order Comment: FASTING NPerformed By: #### CMP, MG, PHOS, CBC #### [facility] [address] [place] [address] USACreatinine [Mass/Vol]0.85 mg/dLNormal0.60-1.20The [facility] Physician GroupComment on above:Order Comment: FASTING NPerformed By: #### CMP, MG, PHOS, CBC #### [facility] [address] [place] [address] USACreatinine Clr Calc Igvggtic82.21NormalThe [facility] Physician GroupComment on above:Order Comment: FASTING NPerformed By: #### CMP, MG, PHOS, CBC #### [place] [address] USAGFR/1.73 sq M.predicted MDRD (S/P/Bld) [Vol rate/Area] mL/min/{1.73_m2}NormalThe [facility] Physician GroupComment on above:Order Comment: FASTING NPerformed By: #### CMP, MG, PHOS, CBC #### [place] [address] USAGlucose [Mass/Vol]206 mg/dFOgfq12-374Bvr [facility] Physician GroupComment on above:Order Comment: FASTING NResult Comment: Random Glucose Reference Range is dependent on time and content of last meal. Glucose of more than 200 mg/dL in a nonstressed, ambulatory subject supports the diagnosis of Diabetes Mellitus. ADA recommended reference rangePerformed By: #### CMP, MG, PHOS, CBC #### [place] [address] USAPotassium [Moles/Vol]3.5 mmol/LNormal3.5-5.1The [facility] Physician GroupComment on above:Order Comment: FASTING NPerformed By: #### CMP, MG, PHOS, CBC #### [place] [address] USASodium [Moles/Vol]139 mmol/AXknbzs252-125Rhr [facility] Physician GroupComment on above:Order Comment: FASTING NPerformed By: #### CMP, MG, PHOS, CBC #### [address] [place] [address] USAUrea nitrogen [Mass/Vol]9 mg/dLNormal7 [facility] Physician GroupComment on above:Order Comment: FASTING NPerformed By: #### CMP, MG, PHOS, CBC #### [facility] [address] [place] [address] USABenzodiazepines Screen Ql (U)Ordered By: Priscilla Lang on 99-75-7988Cebudvrouvcwojh Ql (U)Benzodiazepines [Presence] in Urine by Screen methodNegMiami Valley HospitalBenzoylecgonine [Presence] in Urine by Screen methodOrdered By: Priscilla Lang on 53-55-6250Wjhkyipgfqrrrbk Screen Ql (U)Benzoylecgonine [Presence] in Urine by Screen methodNegative [facility] CenterCannabinoids [Presence] in Urine by Screen methodOrdered By: Priscilla Lang on 90-24-5297Axvzqcbtogsa Screen Ql (U) Cannabinoids [Presence] in Urine by Screen methodNegMiami Valley HospitalComment on above:These are unconfirmed results and should not be used for legal purposes. Drug Cut-Off Concentration: AMPH 1000 ng/mL KENDRICK 200 ng/mL HEATHER 200 ng/mL COCM 300 ng/mL OP 300 ng/mL PCP 25 ng/mL THC 20 ng/mL Cholesterol [Mass/volume] in Serum or PlasmaOrdered By: Jori Hearn on 29-22-3997Tkqnedzujvo [Mass/Vol]Cholesterol [Mass/volume] in Serum or PlasmaLow 140-200D[facility] Medical CenterComment on above:Chol less than 200 mg/dl low riskChol 201-239 mg/dl borderline riskChol 240 mg/dl and greater high riskCholesterol in HDL [Mass/volume] in Serum or PlasmaOrdered By: Jori Hearn on 05-14-7380Gfqmddgbfhx in HDL [Mass/Vol]Serum or plasma high density lipoprotein (HDL) cholesterol pyvxdspkzob70-65DmpimupaeDiley Ridge Medical Center Comment on above:HDL CHOL ATP-III CLASSIFICATION Cardiovascular RiskHDL > or equal to 60 mg/dL LOWHDL < 40 mg/dL HIGHCholesterol in LDL Calc [Mass/Vol] Ordered By: Jori Hearn on 82-56-9207Caytueilqlz in LDL [Mass/Vol]Cholesterol in LDL [Mass/volume] in Serum or Plasma by calculation-[facility] Ridge Medical CenterComment on above:LDL ATP III CLASSIFICATIONLDL less than 100 mg/dL OptimalLDL 100-129 mg/dL Near or above avfpnjpTCJ625-503 mg/dL Borderline highLDL 160-189 mg/dL HighLDL greater than 189 mg/dL Very highCholesterol in VLDL Calc [Mass/Vol]Ordered By: Jori Hearn on 40-70-0040Xydcmxgxpho in VLDL [Mass/Vol]Cholesterol in VLDL [Mass/volume] in Serum or Plasma by calculation [facility] Medical CenterDrug Screen,Urineon 54-46-0726Gpwsyihefxp Screen,UrineNegativeNormalNegativeThe [facility]ly Physician GroupComment on above: Performed By: #### CMP, MG, PHOS, CBC #### [facility] [address] [place] [address] USABarbiturate Screen,UrineNegativeNormalNegativeThe [facility]ly Physician GroupComment on above:Performed By: #### CMP, MG, PHOS, CBC #### [facility] [address] [place] [address] USABenzodiazepines Screen,UrineNegativeNormalNegativeThe [facility] Physician GroupComment on above:Performed By: #### CMP, MG, PHOS, CBC #### [place] [address] USACannabinoid Screen,UrineNegativeNormalNegativeThe [facility] Physician GroupComment on above:Result Comment: These are unconfirmed results and should not be used for legal purposes. Drug Cut-Off Concentration: AMPH 1000 ng/mL KENDRICK 200 ng/mL HEATHER 200 ng/mL COCM 300 ng/mL OP 300 ng/mL PCP 25 ng/mL THC 20 ng/mL PERFORMED BY: [place] [address] PATHOLOGIST ADJUNCT FACULTY INSTRUCTOR LE MACE M.D.Performed By: #### CMP, MG, PHOS, CBC #### [place] [address] USACocaine Screen,UrineNegativeNormalNegativeThe [facility] Physician GroupComment on above:Performed By: #### CMP, MG, PHOS, CBC #### [place] [address] USAOpiate Screen,UrineNegativeNormalNegativeSt. [facility]side Physician GroupComment on above:Performed By: #### CMP, MG, PHOS, CBC #### [place] [address] USAPhencyclidine Screen,UrineNegativeNormalNegativeThe [facility] Physician GroupComment on above:Performed By: #### CMP, MG, PHOS, CBC #### [place] [address] USAGlucose Poct Glucometerson 58-81-4677Dtdtxwv [Mass/Vol]165 mg/dLNoSwain Community Hospital Physician GroupComment on above:Result Comment: Random Glucose Reference Range is dependent on time and content of last meal. Glucose of more than 200 mg/dL in a nonstressed, ambulatory subject supports the diagnosis of Diabetes Mellitus. PERFORMED BY: [place] [address] PATHOLOGIST ADJUNCT FACULTY INSTRUCTOR LE MACE M.D.Performed By: #### CMP, MG, PHOS, CBC #### [place] [address] UTZKzisbeg8Vvk6: Cleaned MeterNoSwain Community Hospital Physician GroupComment on above:Result Comment: PERFORMED BY: [place] [address] PATHOLOGIST ADJUNCT FACULTY INSTRUCTOR LE MACE M.D.Performed By: #### GLULS #### Point of Care testing ,Glucose [Mass/Vol]188 mg/dLHCA Florida Memorial Hospital Physician GroupComment on above: Result Comment: Random Glucose Reference Range is dependent on time and content of last meal. Glucose of more than 200 mg/dL in a nonstressed, ambulatory subject supports the diagnosis of Diabetes Mellitus.Performed By: #### GLULS #### Point of Care testing ,Byzvste7Sfu5: Cleaned MeterNoSwain Community Hospital Physician GroupComment on above: Result Comment: PERFORMED BY: [place] [address] PATHOLOGIST ADJUNCT FACULTY INSTRUCTOR LE MACE M.D.Performed By: #### CMP, MG, PHOS, CBC #### [place] [address] USAGlucose [Mass/Vol]192 mg/dLNoSwain Community Hospital Physician GroupComment on above:Result Comment: Random Glucose Reference Range is dependent on time and content of last meal. Glucose of more than 200 mg/dL in a nonstressed, ambulatory subject supports the diagnosis of Diabetes Mellitus.Performed By: #### CMP, MG, PHOS, CBC #### [place] [address] USAGlucose [Mass/Vol]210 mg/dLNoSwain Community Hospital Physician GroupComment on above:Result Comment: Random Glucose Reference Range is dependent on time and content of last meal. Glucose of more than 200 mg/dL in a nonstressed, ambulatory subject supports the diagnosis of Diabetes Mellitus. PERFORMED BY: [place] [address] PATHOLOGIST ADJUNCT FACULTY INSTRUCTOR LE MACE M.D.Performed By: #### CMP, MG, PHOS, CBC #### [place] [address] USALipid Panelon 71-94-2092Ywxnbqbxens [Mass/Vol]106 mg/dLLow 140-200The [facility] Physician GroupComment on above:Order Comment: FASTING N Result Comment: Chol less than 200 mg/dl low risk Chol 201-239 mg/dl borderline risk Chol 240 mg/dl and greater high riskPerformed By: #### CMP, MG, PHOS, CBC #### [place] [address] USACholesterol in HDL [Mass/Vol]31 mg/yCEqaqvw73-73Uod [facility] Physician GroupComment on above:Order Comment: FASTING NResult Comment: HDL CHOL ATP-III CLASSIFICATION Cardiovascular Risk HDL > or equal to 60 mg/dL LOW HDL < 40 mg/dL HIGHPerformed By: #### CMP, MG, PHOS, CBC #### [facility] [address] [place] [id number] USACholesterol.total/Cholesterol in HDL [Mass ratio]3.4 {ratio}Normal<5.0The [facility] Physician GroupComment on above:Order Comment: FASTING NResult Comment: PERFORMED BY: [place] [address] PATHOLOGIST ADJUNCT FACULTY INSTRUCTOR LE MACE M.D.Performed By: #### CMP, MG, PHOS, CBC #### [place] [address] USALDL Cholesterol,Uqfmlvuvsu02 mg/dLNormal0-100The [facility] Physician GroupComment on above:Order Comment: FASTING NResult Comment: LDL ATP III CLASSIFICATION LDL less than 100 mg/dL Optimal LDL 100-129 mg/dL Near or above optimal LDL 130-159 mg/dL Borderline high LDL 160-189 mg/dL High LDL greater than 189 mg/dL Very highPerformed By: #### CMP, MG, PHOS, CBC #### [place] [address] USATriglyceride w/Inrqgx967 mg/dLHigh0-149The [facility] Physician GroupComment on above:Order Comment: FASTING NResult Comment: TRIG ATP III CLASSIFICATION TRIG less than 150 mg/dL Normal TRIG 150-199 mg/dL Borderline high TRIG 200-500 mg/dL High TRIG greater than 500 mg/dL Very high Standard traceable to the Center for Disease Conrtrol and Prevention (CDC) test method.Performed By: #### CMP, MG, PHOS, CBC #### [place] [id number] USAVLDL QOIFMTBBNWB99 mg/dLNormalThe [facility] Physician GroupComment on above:Order Comment: FASTING NPerformed By: #### CMP, MG, PHOS, CBC #### [facility] [address] [place] [id number] USANo Panel InformationOrdered By: Priscilla Lang on 62-15-9662Kjpdygb Glucose CommentGlu2: cleaned meterDiley Ridge Medical CenterOpiates [Presence] in Urine by Screen methodOrdered By: Priscilla Lang on 23-62-6937Bcwkvhq Screen Ql (U)Opiates [Presence] in Urine by Screen method NegativeDiley Ridge Medical CenterPhencyclidine Screen Ql (U)Ordered By: Priscilla Lang on 16-11-1560Whnhgqrqsuutk Ql (U)Phencyclidine [Presence] in Urine by Screen methodNegativeHolzer Hospitalerum or plasma total cholesterol/high density lipoprotein (HDL) cholesterol mass ratOrdered By: Jori Hearn on 26-71-9414Ygfahrdwqja.total/Cholesterol in HDL [Mass ratio] Serum or plasma total cholesterol/high density lipoprotein (HDL) cholesterol mass rat<5.0D[facility] Ridge Medical CenterTriglyceride [Mass/volume] in Serum or PlasmaOrdered By: Jori Hearn on 26-46-6272Stmepucgwxpe [Mass/Vol] Triglyceride [Mass/volume] in Serum or PlasmaHigh0-149D[facility] Ridge Medical CenterComment on above:TRIG ATP III CLASSIFICATIONTRIG less than 150 mg/dL NormalTRIG 150-199 mg/dL Borderline highTRIG 200-500 mg/dL High TRIG greater than 500 mg/dL Very highStandard traceable to the Center for Disease Conrtrol and Prevention (CDC) test method.Urine Cultureon 99-64-1901Xjkqlwbb identified Cx Nom (U)15,000 colonies/ml mixed bacterial skin contaminants 2 Days PERFORMED BY: [facility] [address] [place] [address] PATHOLOGIST ADJUNCT FACULTY INSTRUCTOR LE MACE M.D.NormalThe [facility] Physician GroupComment on above: Performed By: #### CMP, MG, PHOS, CBC #### [facility] [address] [place] [address] USAUrine cultureOrdered By: Priscilla Lang on 04-29-2024 Bacteria identified Cx Nom (U)Urine cultureDiley Ridge Medical Center Bacteria identified Cx Nom (U)Urine cultureDiley Ridge Medical Center Alanine aminotransferase [Enzymatic activity/volume] in Serum or PlasmaOrdered By: Wesley Villafuerte on 46-34-1753HBV [Catalytic activity/Vol]Alanine aminotransferase [Enzymatic activity/volume] in Serum or Plasma7-52D[facility] Ridge Medical CenterAlbumin [Mass/volume] in Serum or Plasma by Bromocresol green (BCG) dye binding methoOrdered By: Wesley Villafuerte on 13-67-0325Eqpcdxi BCG dye [Mass/Vol]Albumin [Mass/volume] in Serum or Plasma by Bromocresol green (BCG) dye binding metho3.5-5.7FCleveland Clinic South Pointe HospitalAlkaline phosphatase [Enzymatic activity/volume] in Serum or PlasmaOrdered By: Wesley Villafuerte on 81-27-5947YRR [Catalytic activity/Vol]Alkaline phosphatase [Enzymatic activity/volume] in Serum or Bmqzdo73-113WfwdtxtvqDiley Ridge Medical Center Anisocytosis LM Ql (Bld)Ordered By: Wesley Villafuerte on 43-43-5638Quabiyssonup Ql (Bld)Anisocytosis [Presence] in Blood by Light microscopyDiley Ridge Medical CenterAppearance of UrineOrdered By: Wesley Villafuerte on 04-28-2024 Appearance (U)Urine appearanceCleMercy Health Willard HospitalAspartate aminotransferase [Enzymatic activity/volume] in Serum or PlasmaOrdered By: Wesley Villafuerte on 65-91-4975RCX [Catalytic activity/Vol]Aspartate aminotransferase [Enzymatic activity/volume] in Serum or Gkvgkt33-66DnmhwzplnDiley Ridge Medical CenterB-Type Natriuretic Peptideon 03-53-1950Ivqtvcvrdie peptide B (Bld) [Mass/Vol]25.0 pg/mLNormal5-100The [facility] Physician GroupComment on above: Result Comment: PERFORMED BY: [place] [address] PATHOLOGIST ADJUNCT FACULTY INSTRUCTOR LE MACE M.D.Performed By: #### CMP, MG, PHOS, CBC #### [place] [address] USABacteria [Presence] in Urine by AutomatedOrdered By: Wesley Villafuerte on 40-18-0975Ubcrkixi Auto Ql (U)Bacteria [Presence] in Urine by AutomatedNone SeenDiley Ridge Medical CenterBasophils Auto (Bld) [#/Vol] Ordered By: Wesley Villafuerte on 54-76-6707Ksdhwgyhg (Bld) [#/Vol]Automated basophil count0.0-0.2FCleveland Clinic South Pointe HospitalBasophils/100 WBC Auto (Bld)Ordered By: Wesley Villafuerte on 58-38-1261Jmlfsljtf/100 WBC (Bld)Automated basophil %. D[facility] Ridge Medical CenterBilirubin Test strip Ql (U)Ordered By: Wesley Villafuerte on 15-31-8023Mtintuvus Ql (U)Bilirubin.total [Presence] in Urine by Test stripNegativeDiley Ridge Medical CenterBilirubin.total [Mass/volume] in Serum or PlasmaOrdered By: Wesley Villafuerte on 45-10-5218Nzqlinclg [Mass/Vol] Bilirubin.total [Mass/volume] in Serum or Plasma0.3-1.0D[facility] Ridge Medical CenterBioFire Not Detectedon 27-50-3097XvpXomc Not DetectedNot detected NormalNot DetecteThe [facility] Physician GroupComment on above:Result Comment: This is a duplicate RP2.1 COVID (PCR) result to be used for statistical tracking purpose only. PERFORMED BY: [place] [address] PATHOLOGIST ADJUNCT FACULTY INSTRUCTOR LE MACE M.D.Performed By: #### CMP, MG, PHOS, CBC #### [place] [address] USACOVID-19 Detected/Not DetectedOrdered By: Wesley Villafuerte on 11-50-0002GROI-CoV-2 (COVID-19) RNA TEJINDER+non-probe Ql (Nph)Not detectedNot DetectSalem City HospitalComment on above:This is a duplicate RP2.1 COVID (PCR) result to be used for statistical tracking purpose only.CT angio headon 67-88-2452KH angio headDAYTON [facility]ILDR[facility] Main [place] [address] [place] [address] CT Scan Report Signed Patient: Taye Gay MR#: [id number] [birth year] : 1955 Acct:[id number] Age/Sex: 68 / F ADM Date: 04/28/24 Loc: ER Room: Type: [facility] ER Attending Dr: Copies to: Wesley Villafuerte PA-C Ordering Provider: Wesley Villafuerte PA-C Date of Service: 04/28/24 CT/CT angio head: weakness ([id number]) CT/CT angio neck: weakness ([id number]) CT/CT head/brain wo con: weakness CT head/brain [...] Bowling M.D.04/28/2024 9:44 PM Dictation Location: [place] [address] Transcribed By: AMY 04/28/242143 Dictated By: Oz Bowling II, MD 04/28/242129 Signed By: 04/28/242143[facility] Physician GroupCalcium [Mass/volume] in Serum or PlasmaOrdered By: Wesley Villafuerte on 75-98-6111Reksjqu [Mass/Vol]Calcium [Mass/volume] in Serum or Plasma8.6-10.3FCleveland Clinic South Pointe HospitalCarbon dioxide, total [Moles/volume] in Serum or PlasmaOrdered By: Wesley Villafuerte on 26-38-4431VN4 [Moles/Vol]Carbon dioxide, total [Moles/volume] in Serum or Plasma 21.0-31.0D[facility] Medical CenterChloride [Moles/volume] in Serum or PlasmaOrdered By: Wesley Villafuerte on 78-62-2928Kvpecbes [Moles/Vol]Chloride [Moles/volume] in Serum or Zybrfh87-675JhwvasaksDiley Ridge Medical CenterColor Auto (U)Ordered By: Wesley Villafuerte on 20-61-2066Ihvin (U)Color of Urine by Auto YellowDiley Ridge Medical CenterComprehensive Metabolic Panelon 93-42-2562Ecqmbos [Mass/Vol]3.7 g/dLNormal3.5-5.7The [facility] Comment on above:Performed By: #### CMP, MG, PHOS, CBC #### [facility] [address] [place] [address] USAAlbumin/Globulin [Mass ratio]1.2 {ratio}NormalThe [facility] Physician GroupComment on above:Performed By: #### CMP, MG, PHOS, CBC #### [facility] [address] [place] [address] USAALP [Catalytic activity/Vol]86 U/TAzddnz06-030Uwx [facility] Physician GroupComment on above:Performed By: #### CMP, MG, PHOS, CBC #### [place] [address] USAALT [Catalytic activity/Vol]20 U/LNormal7-52The [facility] Physician GroupComment on above:Performed By: #### CMP, MG, PHOS, CBC #### [place] [address] USAAnion gap [Moles/Vol]12.7 mmol/LNormal6.0-15.0The [facility] Physician GroupComment on above:Performed By: #### CMP, MG, PHOS, CBC #### [place] [address] USAAST [Catalytic activity/Vol]25 U/GNbprfl20-44Vuf [facility] Physician GroupComment on above:Performed By: #### CMP, MG, PHOS, CBC #### [place] [address] USABilirubin [Mass/Vol]0.3 mg/dLNormal0.3-1.0The [facility] Physician GroupComment on above:Performed By: #### CMP, MG, PHOS, CBC #### [place] [address] USACalcium [Mass/Vol]9.7 mg/dLNormal8.6-10.3The [facility] Physician GroupComment on above:Performed By: #### CMP, MG, PHOS, CBC #### [facility] [address] [place] [address] USAChloride [Moles/Vol]104 mmol/XBrhuhl64-141Drg [facility] Physician GroupComment on above:Performed By: #### CMP, MG, PHOS, CBC #### [facility] [address] [place] [address] USACO2 [Moles/Vol]24.2 mmol/FPjccpj36.0-31.0The [facility] Physician GroupComment on above:Performed By: #### CMP, MG, PHOS, CBC #### [facility] [address] [place] [address] USACreatinine [Mass/Vol]0.85 mg/dLNormal0.60-1.20ThNell J. Redfield Memorial Hospital Physician GroupComment on above:Performed By: #### CMP, MG, PHOS, CBC #### [facility] [address] [place] [address] USACreatinine Clr Calc Hetzopht39.21NormHolzer Hospitale [facility] Physician GroupComment on above:Performed By: #### CMP, MG, PHOS, CBC #### [facility] [address] [place] [address] USAGFR/1.73 sq M.predicted MDRD (S/P/Bld) [Vol rate/Area] mL/min/{1.73_m2}NormalThe [facility] Physician GroupComment on above:Performed By: #### CMP, MG, PHOS, CBC #### [facility] [address] [place] [address] USAGlobulin (S) [Mass/Vol]3.1 g/dLNormFlorida Medical Center Physician GroupComment on above:Performed By: #### CMP, MG, PHOS, CBC #### [facility] [address] [place] [address] USAGlucose [Mass/Vol]231 mg/xVCpen60-116Sro [facility] Physician GroupComment on above:Result Comment: Random Glucose Reference Range is dependent on time and content of last meal. Glucose of more than 200 mg/dL in a nonstressed, ambulatory subject supports the diagnosis of Diabetes Mellitus. ADA recommended reference rangePerformed By: #### CMP, MG, PHOS, CBC #### [facility] [address] [place] [address] USAPotassium [Moles/Vol]3.9 mmol/LNormal3.5-5.1The [facility] Physician GroupComment on above:Result Comment: Hemolysis is present at a level that could interfere with the result. Contact lab if redraw is requiredPerformed By: #### CMP, MG, PHOS, CBC #### [facility] [address] [place] [address] USAProtein [Mass/Vol]6.8 g/dLNormal6.4-8.9The [facility] Physician GroupComment on above:Performed By: #### CMP, MG, PHOS, CBC #### [facility] [address] [place] [address] USASodium [Moles/Vol]137 mmol/SLdigdg478-030Kph [facility] Physician GroupComment on above:Performed By: #### CMP, MG, PHOS, CBC #### [facility] [address] [place] [address] USAUrea nitrogen [Mass/Vol]11 mg/dLNormal7-25The [facility] Physician GroupComment on above:Performed By: #### CMP, MG, PHOS, CBC #### [facility] [address] [place] [address] USACreatinine [Mass/volume] in Serum or PlasmaOrdered By: Wesley Villafuerte on 83-99-1093Olcwvpbfei [Mass/Vol]Creatinine [Mass/volume] in Serum or Plasma0.60-1.20D[facility] Ridge Medical CenterDipstick and Microscopicon 74-90-9198Scblsjrqba (U)ClearNormalClearThe [facility] Physician GroupComment on above:Order Comment: Name Collection Type:: Clean-Voided MidstreamPerformed By: #### ADDONUAPLUS #### [facility] [address] [place] [address] USABacteria,UrineRareNormalNone SeenThe [facility] Physician GroupComment on above:Order Comment: Name Collection Type:: Clean-Voided MidstreamPerformed By: #### ADDONUAPLUS #### [facility] [address] [place] [address] USABilirubin,UrineNegativeNormalNegativeThe [facility] Physician GroupComment on above:Order Comment: Name Collection Type:: Clean- Voided MidstreamPerformed By: #### ADDONUAPLUS #### [facility] [address] [place] [address] USABudding Yeast,UrineRareHighNone SeenThe [facility] Physician GroupComment on above:Order Comment: Name Collection Type:: Clean- Voided MidstreamResult Comment: PERFORMED BY: [place] [address] PATHOLOGIST ADJUNCT FACULTY INSTRUCTOR LE MACE M.D.Performed By: #### ADDONUAPLUS #### [place] [address] USAColor (U)Light-YellowNormalYellowThe [facility] Physician GroupComment on above:Order Comment: Name Collection Type:: Clean-Voided MidstreamPerformed By: #### ADDONUAPLUS #### [place] [address] USAGlucose Ql (U)>=HighHCA Florida Memorial Hospital Physician Group Comment on above:Order Comment: Name Collection Type:: Clean-Voided Midstream Performed By: #### ADDONUAPLUS #### [place] [address] USAHyaline Casts,Urine0 [LPF]Normal0-8The [facility] Physician GroupComment on above:Order Comment: Name Collection Type:: Clean-Voided MidstreamPerformed By: #### ADDONUAPLUS #### [place] [address] USAKetones Ql (U)NegativeNormalNegativeSt. Vincent'[facility]side Physician GroupComment on above:Order Comment: Name Collection Type:: Clean- Voided MidstreamPerformed By: #### ADDONUAPLUS #### [place] [id number] USALeukocyte esterase Test strip Ql (U)NegativeNormalNegative St. [facility] Physician GroupComment on above:Order Comment: Name Collection Type:: Clean-Voided MidstreamPerformed By: #### ADDONUAPLUS #### [place] [address] USANitrite,UrineNegativeNormalNegativeSt. Vincent'[facility]side Physician GroupComment on above:Order Comment: Name Collection Type:: Clean-Voided MidstreamPerformed By: #### ADDONUAPLUS #### [place] [address] USAOccult Blood,Urine2+HighNegativeThe [facility] Physician GroupComment on above:Order Comment: Name Collection Type:: Clean-Voided MidstreamResult Comment: PERFORMED BY: [place] [address] PATHOLOGIST ADJUNCT FACULTY INSTRUCTOR LE MACE M.D.Performed By: #### ADDONUAPLUS #### [place] [address] USApH (U)5.5 [pH]Normal5.0-9.0The [facility] Comment on above:Order Comment: Name Collection Type:: Clean-Voided Midstream Performed By: #### ADDONUAPLUS #### [place] [address] USAProtein,UrineNegativeNormalNegativeThe [facility] Physician GroupComment on above:Order Comment: Name Collection Type:: Clean-Voided MidstreamPerformed By: #### ADDONUAPLUS #### [place] [address] USARBC,Urine10 [HPF]High0-4The [facility] Comment on above:Order Comment: Name Collection Type:: Clean-Voided Midstream Performed By: #### ADDONUAPLUS #### [place] [address] USASpecificy [place],Urine1.805Mhwa2.001-1.030The [facility] Physician GroupComment on above:Order Comment: Name Collection Type:: Clean- Voided MidstreamPerformed By: #### ADDONUAPLUS #### [place] [address] USASquamous Epithelial Cell,Urine3 [HPF]High0-2The [facility] Physician GroupComment on above:Order Comment: Name Collection Type:: Clean- Voided MidstreamPerformed By: #### ADDONUAPLUS #### [place] [address] USAUrobilinogen,UrineNormalNormalNormalThe [facility] Physician GroupComment on above:Order Comment: Name Collection Type:: Clean- Voided MidstreamPerformed By: #### ADDONUAPLUS #### [facility] [address] [place] [address] USAWBC,Urine5 [HPF]High0-4The [facility] Comment on above:Order Comment: Name Collection Type:: Clean-Voided Midstream Performed By: #### ADDONUAPLUS #### [facility] [address] [place] [address] USAECG 12 lead ECGon 30-95-9600MTT 12 lead ECGDAYTON CHILDREN'S [facility] Main [place] [address] [place] [address] Electrocardiograph Report Signed Patient: Taye Gay MR#: [id number] [birth year] : 1955 Acct:[id number] Age/Sex: 68 / F ADM Date: 04/28/24 Loc: Room: [address] [place] [address] Type: ADM IN Attending Dr: Jori Hearn [...] MUS Signed By Jori Batista MD 05/[address] [place] [address] Physician GroupEosinophils Auto (Bld) [#/Vol] Ordered By: Wesley Villafuerte on 78-90-8997Qrkbiguxvxt (Bld) [#/Vol]Automated eosinophil count0.0-0.45D[facility] Ridge Medical CenterEosinophils/100 WBC Auto (Bld)Ordered By: Wesley Villafuerte on 44-64-3069Hmifazypaon/100 WBC (Bld) Automated eosinophil %.Diley Ridge Medical CenterEpithelial cells.squamous [#/area] in Urine sediment by Automated countOrdered By: Wesley Villafuerte on 18-71-0352Lyvmazwmsq cells.squamous Auto (Urine sed) [#/Area]Epithelial cells.squamous [#/area] in Urine sediment by Automated countHigh0-2FCleveland Clinic South Pointe HospitalErythrocyte distribution width Auto (RBC) [Ratio]Ordered By: Wesley Villafuerte on 23-18-8127Fluubbkoahz distribution width (RBC) [Ratio] Erythrocyte distribution width [Ratio] by Automated svhvbNfmm46.9-15.3FCleveland Clinic South Pointe HospitalErythrocyte morphology finding [Identifier] in Blood Ordered By: Wesley Villafuerte on 10-05-4803VPE morphology finding Nom (Bld)RBC morphologyDiley Ridge Medical CenterErythrocytes [#/area] in Urine sediment by Automated countOrdered By: Wesley Villafuerte on 10-16-2464FPH Auto (Urine sed) [#/Area]Erythrocytes [#/area] in Urine sediment by Automated countHigh0-4 [facility] Medical CenterGlobulin Calc (S) [Mass/Vol]Ordered By: Wesley Villafuerte on 58-84-5493Luodinpq (S) [Mass/Vol]Serum globulin measurement by calculation (mass/volume)D[facility] Ridge Medical CenterGlucose [Mass/volume] in Serum or PlasmaOrdered By: Wesley Villafuerte on 12-98-9800Zslazrg [Mass/Vol] Glucose [Mass/volume] in Serum or OzzswfEczq33-919SsicpjyzwDiley Ridge Medical CenterComment on above:ADA recommended reference rangeRandom Glucose Reference Range is dependent on time and content of last meal. Glucose of more than 200 mg/dL in a nonstressed, ambulatory subject supports the diagnosisof Diabetes Mellitus.Glucose [Mass/volume] in Urine by Test stripOrdered By: Wesley Villafuerte on 99-57-5823Dksgslg Test strip (U) [Mass/Vol]Glucose [Mass/volume] in Urine by Test stripHighNormalDiley Ridge Medical CenterHbA1c HPLC (Bld) [Mass fraction]on 31-23-1443JwE6g (Bld) [Mass fraction]Hemoglobin A1c/Hemoglobin.total in Blood by HPLCDiley Ridge Medical CenterHematocrit Auto (Bld) [Volume fraction]Ordered By: Wesley Villafuerte on 57-30-7456Afpaughtev (Bld) [Volume fraction]Hematocrit [Volume Fraction] of Blood by Automated rgcnnZxoi00.0-46.4 [facility] CenterHemoglobin Test strip Ql (U)Ordered By: Wesley Villafuerte on 01-30-7101Blfpklnldv Ql (U)Hemoglobin [Presence] in Urine by Test strip HighNegativeDiley Ridge Medical CenterHemoglobin [Mass/volume] in Blood Ordered By: Wesley Villafuerte on 00-18-2541Oqfzkacsau (Bld) [Mass/Vol]Hemoglobin [Mass/volume] in QmfiaQjmc40.8-15.4FCleveland Clinic South Pointe HospitalHyaline casts [#/area] in Urine sediment by Automated countOrdered By: Wesley Villafuerte on 11-98-9373Lvakgbm casts Auto (Urine sed) [#/Area]Hyaline casts [#/area] in Urine sediment by Automated count0-8D[facility] Medical CenterINR in Platelet poor plasma by Coagulation assayOrdered By: Wesley Villafuerte on 39-33-2402ZPV Coag (PPP) [Relative time]INR in Platelet poor plasma by Coagulation assayDiley Ridge Medical CenterComment on above:INR Therapeutic Range A) Pre- and [...] strip Ql (U)Ordered By: Wesley Villafuerte on 59-89-1495Qgpzzqd Ql (U)Ketones [Presence] in Urine by Test stripNegativeDiley Ridge Medical CenterLeukocyte esterase [Presence] in Urine by Test stripOrdered By: Wesley Villafuerte on 28-79-6198Wegozgvgi esterase Test strip Ql (U)Leukocyte esterase [Presence] in Urine by Test stripNegative [facility] CenterLeukocytes [#/area] in Urine sediment by Automated countOrdered By: Wesley Villafuerte on 97-50-2127GNO Auto (Urine sed) [#/Area]Leukocytes [#/area] in Urine sediment by Automated countHigh0-4FCleveland Clinic South Pointe HospitalLeukocytes [#/volume] corrected for nucleated erythrocytes in Blood by Automated counOrdered By: Wesley Villafuerte on 90-68-1755FNV corrected for nucl RBC Auto (Bld) [#/Vol]Leukocytes [#/volume] corrected for nucleated erythrocytes in Blood by Automated coun3.8-11.6FCleveland Clinic South Pointe HospitalLymphocytes Auto (Bld) [#/Vol]Ordered By: Wesley Villafuerte on 24-46-9110Vmkyujxtmlb (Bld) [#/Vol]Lymphocytes [#/volume] in Blood by Automated count1.00-4.8D[facility] Medical CenterLymphocytes/100 WBC Auto (Bld) Ordered By: Wesley Villafuerte on 71-41-9489Entheuuqvho/100 WBC (Bld)Lymphocytes/100 leukocytes in Blood by Automated count.Grant HospitalH Auto (RBC) [Entitic mass]Ordered By: Wesley Villafuerte on 58-98-0130GGJ (RBC) [Entitic mass]MCH [Entitic mass] by Automated count24.7-34.3FLakeHealth TriPoint Medical CenterHC Auto (RBC) [Mass/Vol]Ordered By: Wesley Villafuerte on 92-37-6475XSDW (RBC) [Mass/Vol]MCHC [Mass/volume] by Automated count32.0-35.0D[facility] Medical CenterMCV Auto (RBC) [Entitic vol]Ordered By: Wesley Villafuerte on 04-28-2024 MCV (RBC) [Entitic vol]MCV [Entitic volume] by Automated ljesi50-761NjveschycDiley Ridge Medical CenterMagnesiumon 07-67-0599Uxmhjjqrg [Mass/Vol]1.7 mg/dLLow 1.9-2.7The [facility]ly Physician GroupComment on above:Result Comment: PERFORMED BY: [facility] [address] [place] [address] PATHOLOGIST ADJUNCT FACULTY INSTRUCTOR LE MACE M.D.Performed By: #### CMP, MG, PHOS, CBC #### [facility] [address] [place] [address] USAMagnesium [Mass/volume] in Serum or PlasmaOrdered By: Wesley Villafuerte on 58-73-3128Rmyoaponn [Mass/Vol]Magnesium [Mass/volume] in Serum or PlasmaLow1.9-2.7FCleveland Clinic South Pointe HospitalMonocyte distribution width [Entitic volume] in Blood by AutomatedOrdered By: Wesley Villafuerte on 04-28-2024 Monocyte distribution width Auto (Bld) [Entitic vol]Monocyte distribution width [Entitic volume] in Blood by AutomatedHigh0.00-20.00D[facility] Medical CenterComment on above:For adults in ED, MDW > 20.0 may be associated with a higher risk of sepsis during the first 12 hrs of hospital admissionMonocytes Auto (Bld) [#/Vol]Ordered By: Wesley Villafuerte on 15-35-3073Ptqszbktb (Bld) [#/Vol] Automated blood monocyte count0.0-0.8[facility] Monocytes/100 WBC Auto (Bld)Ordered By: Wesley Villafuerte on 06-82-8496Rtibhtyzv/100 WBC (Bld)Automated monocyte %.[facility] Medical CenterNatriuretic peptide B [Mass/Vol]Ordered By: Wesley Villafuerte on 72-75-3717Sauxzcipqle peptide B (Bld) [Mass/Vol]BNP ser/plas5-100D[facility] Medical CenterNeutrophils Auto (Bld) [#/Vol]Ordered By: Wesley Villafuerte on 26-34-1126Kzchgjpemgq (Bld) [#/Vol]Neutrophils [#/volume] in Blood by Automated count1.8-7.7FCleveland Clinic South Pointe HospitalNeutrophils/100 WBC Auto (Bld)Ordered By: Wesley Villafuerte on 66-48-1007Lddkhxybnxh/100 WBC (Bld)Automated neutrophil %.[facility] Medical CenterNitrite Test strip Ql (U)Ordered By: Wesley Villafuerte on 04-28-2024 Nitrite Ql (U)Nitrite [Presence] in Urine by Test stripNegativeDiley Ridge Medical CenterNo Panel InformationOrdered By: Wesley Villafuerte on 77-88-0953Wclltqaai GFR (CKD-EPI)> 60.0 mL/MinDiley Ridge Medical Center Pharmacy Creatinine Clearance (Chem77.21D[facility] Medical CenterNo Panel Informationon 98-78-1932Hvpakmo Ejzmbtn101HbotgvlidDiley Ridge Medical CenterNucleated erythrocytes [Presence] in Blood by Automated countOrdered By: Wesley Villafuerte on 43-62-4378Dbbgeqqrw RBC Auto Ql (Bld)Nucleated erythrocytes [Presence] in Blood by Automated count0-0.5FCleveland Clinic South Pointe Hospital Partial Thromboplastin Timeon 67-68-9809cNNQ Coag (Bld) [Time]30.0 sNormal 25.1-36.5The [facility] Physician GroupComment on above:Result Comment: A hematocrit value greater than 55% may lead to inaccurate results in coagulation testing. Patients having hematocrit values >55% require a special collection tube for coagulation studies. Please contact the laboratory at [phone] for redraw instructions. PERFORMED BY: [place] [address] PATHOLOGIST ADJUNCT FACULTY INSTRUCTOR LE MACE M.D.Performed By: #### CMP, MG, PHOS, CBC #### [place] [address] USAPlatelet adequacy [Presence] in Blood by Light microscopy Ordered By: Wesley Villafuerte on 14-76-3957Fywmalxka LM Ql (Bld)Platelet adequacy [Presence] in Blood by Light microscopyNoGuernsey Memorial Hospital Platelet mean volume Auto (Bld) [Entitic vol]Ordered By: Wesley Villafuerte on 03-41-6549Phutbrly mean volume (Bld) [Entitic vol]Platelet mean volume [Entitic volume] in Blood by Automated count6.3-10.7FCleveland Clinic South Pointe Hospital Platelet morphology finding [Identifier] in BloodOrdered By: Wesley Villafuerte on 47-71-8795Xcddvzyl morphology finding Nom (Bld)Platelet morphology finding [Identifier] in BloodNoGuernsey Memorial HospitalPlatelets Auto (Bld) [#/Vol]Ordered By: Wesley Villafuerte on 09-08-3340Egezdmzst (Bld) [#/Vol]Platelets [#/volume] in Blood by Automated ajpftTep714-355BepmnmlnqDiley Ridge Medical CenterPolychromasia [Presence] in Blood by Light microscopyOrdered By: Wesley Villafuerte on 05-79-1239Jteogvoqqicsm LM Ql (Bld)Polychromasia [Presence] in Blood by Light microscopyDiley Ridge Medical CenterPotassium [Moles/volume] in Serum or PlasmaOrdered By: Wesley Villafuerte on 32-13-1521Mspyeijqw [Moles/Vol] Potassium [Moles/volume] in Serum or Plasma3.5-5.1FCleveland Clinic South Pointe HospitalComment on above:Hemolysis is present at a level that could interfere with the result.Contact lab if redraw is requiredProtein Test strip (U) [Mass/Vol] Ordered By: Wesley Villafuerte on 57-63-4364Molygxf (U) [Mass/Vol]Protein [Mass/volume] in Urine by Test stripNegativeDiley Ridge Medical Center Protein [Mass/volume] in Serum or PlasmaOrdered By: Wesley Villafuerte on 04-28-2024 Protein [Mass/Vol]Protein [Mass/volume] in Serum or Plasma6.4-8.9D[facility] Medical CenterProthrombin Time INRon 14-62-6679CXN Coag (PPP) [Relative time]1.3 {INR}NormalThe At[facility] Health Stanly Physician GroupComment on above:Result Comment: INR Therapeutic [...] By: #### CMP, MG, PHOS, CBC #### [facility] [address] [place] [address] USAPT Coag (PPP) [Time]15.1 sHigh9.0-12.9The [facility] Physician GroupComment on above:Result Comment: A hematocrit value greater than 55% may lead to inaccurate results in coagulation testing. Patients having hematocrit values >55% require a special collection tube for coagulation studies. Please contact the laboratory at [phone] for redraw instructions.Performed By: #### CMP, MG, PHOS, CBC #### [facility] [address] [place] [address] USAProthrombin time (PT)Ordered By: Wesley Villafuerte on 22-16-6539WE Coag (PPP) [Time]Prothrombin time (PT)High9.0-12.9D[facility] Medical CenterComment on above:A hematocrit value greater than 55% may lead to inaccurate results in coagulation testing. Patientshaving hematocrit values >55% require a special collection tube for coagulation studies. Please c ontact the laboratory at [phone] for redraw instructions.RBC Auto (Bld) [#/Vol]Ordered By: Wesley Villafuerte on 17-40-3416CLT (Bld) [#/Vol]Erythrocytes [#/volume] in Blood by Automated countHigh3.60-5.00D[facility] Medical CenterRespiratory (Upper) Panel, PCRon 86-98-3539Qehmxqeltzg (Upper) Panel, PCR Adenovirus Not detected Bordetella [...] FLUA TEST INCLUDES - Influenza A H1 2008 FLUA TEST INCLUDES - Influenza A H3 Blank Space PERFORMED BY: [facility] [place] [address] PATHOLOGIST ADJUNCT FACULTY INSTRUCTOR LE MACE M.D.NormalThe Atrium Health Stanly Physician GroupComment on above: Performed By: #### CMP, MG, PHOS, CBC #### [facility] [address] [place] [address] USARespiratory pathogens DNA and RNA panel - Nasopharynx by TEJINDER with non-probe detectionOrdered By: Wesley Villafuerte on 26-89-7707Erpwtctdofg pathogens DNA and RNA panel TEJINDER+non-probe (Nph)Respiratory pathogens DNA and RNA panel - Nasopharynx by TEJINDER with non-probe detectionDiley Ridge Medical CenterRespiratory pathogens DNA and RNA panel TEJINDER+non-probe (Nph)Respiratory pathogens DNA and RNA panel - Nasopharynx by TEJINDER with non-probe detection Holzer Hospitalcan and CBCon 82-20-2968Wejmtvtrktwf Ql (Bld) SlightNormalThe [facility]ly Physician GroupComment on above:Performed By: #### CMP, MG, PHOS, CBC #### [facility] [address] [place] [address] USABasophils (Bld) [#/Vol]0.1 10*3/uLNormal0.0-0.2The [facility] Physician GroupComment on above:Performed By: #### CMP, MG, PHOS, CBC #### [place] [address] USABasophils/100 WBC (Bld)1.1 %Normal.The [facility] Physician GroupComment on above:Performed By: #### CMP, MG, PHOS, CBC #### [facility] [address] [place] [address] USAEosinophils (Bld) [#/Vol]0.3 10*3/uLNormal0.0-0.45The [facility] Physician GroupComment on above:Performed By: #### CMP, MG, PHOS, CBC #### [facility] [address] [place] [address] USAEosinophils/100 WBC (Bld)2.7 %Normal.The [facility] Physician GroupComment on above:Performed By: #### CMP, MG, PHOS, CBC #### [place] [address] USAErythrocyte distribution width (RBC) [Ratio]15.4 %High 11.9-15.3The [facility] Physician GroupComment on above:Performed By: #### CMP, MG, PHOS, CBC #### [place] [address] USAHematocrit (Bld) [Volume fraction]48.1 %High34.0-46.4The [facility] Physician GroupComment on above:Performed By: #### CMP, MG, PHOS, CBC #### [place] [address] USAHemoglobin (Bld) [Mass/Vol]16.0 g/eSEkkk09.8-15.4The [facility] Physician GroupComment on above:Performed By: #### CMP, MG, PHOS, CBC #### [place] [address] USALymphocytes (Bld) [#/Vol]2.5 10*3/uLNormal1.00-4.8The [facility] Physician GroupComment on above:Performed By: #### CMP, MG, PHOS, CBC #### [place] [address] USALymphocytes/100 WBC (Bld)24.6 %Normal.The [facility] Physician GroupComment on above:Performed By: #### CMP, MG, PHOS, CBC #### [place] [address] USAMCH (RBC) [Entitic mass]31.7 ayYpdbpt97.7-34.3The [facility] Physician GroupComment on above:Performed By: #### CMP, MG, PHOS, CBC #### [place] [address] USAMCV (RBC) [Entitic vol]95.1 wSLhpdzr81-043Kvw [facility] Physician GroupComment on above:Performed By: #### CMP, MG, PHOS, CBC #### [place] [address] USAMean Corpuscular HGB Conc33.3 g/nMFzidkq59.0-35.0The [facility] Physician GroupComment on above:Performed By: #### CMP, MG, PHOS, CBC #### [place] [address] USAMonocytes (Bld) [#/Vol]0.8 10*3/uLNormal0.0-0.8The [facility] Physician GroupComment on above:Performed By: #### CMP, MG, PHOS, CBC #### [place] [address] USAMonocytes/100 WBC (Bld)20.25 %High0.00-20.00The [facility] Physician GroupComment on above:Result Comment: For adults in ED, MDW > 20.0 may be associated with a higher risk of sepsis during the first 12 hrs of hospital admissionPerformed By: #### CMP, MG, PHOS, CBC #### [place] [address] USAMonocytes/100 WBC (Bld)7.6 %Normal.The [facility] Physician GroupComment on above:Performed By: #### CMP, MG, PHOS, CBC #### [place] [address] USANeutrophils (Bld) [#/Vol]6.5 10*3/uLNormal1.8-7.7The [facility] Physician GroupComment on above:Performed By: #### CMP, MG, PHOS, CBC #### [place] [address] USANeutrophils/100 WBC (Bld)64.0 %Normal.The [facility] Physician GroupComment on above:Performed By: #### CMP, MG, PHOS, CBC #### [place] [address] USANRBC%0.2 /100{WBC}Normal0-0.5The [facility] Comment on above:Performed By: #### CMP, MG, PHOS, CBC #### [place] [address] USAPlatelet EstimateDecreasedNormalNoSwain Community Hospital Physician GroupComment on above:Performed By: #### CMP, MG, PHOS, CBC #### [place] [address] USAPlatelet mean volume (Bld) [Entitic vol]9.9 fLNormal 6.3-10.7The [facility] Physician GroupComment on above:Performed By: #### CMP, MG, PHOS, CBC #### [place] [address] USAPlatelet MorphologyNormalNormalHCA Florida Memorial Hospital Physician GroupComment on above:Result Comment: PERFORMED BY: [place] [address] PATHOLOGIST ADJUNCT FACULTY INSTRUCTOR LE MACE M.D.Performed By: #### CMP, MG, PHOS, CBC #### [place] [address] USAPlatelets (Bld) [#/Vol]136 10*3/oJHnr703-267Vbs [facility] Physician GroupComment on above:Performed By: #### CMP, MG, PHOS, CBC #### [place] [address] USAPolychromasiaSlightHCA Florida Memorial Hospital Physician Group Comment on above:Performed By: #### CMP, MG, PHOS, CBC #### [place] [address] USARBC (Bld) [#/Vol]5.06 10*6/uLHigh3.60-5.00The [facility] Physician GroupComment on above:Performed By: #### CMP, MG, PHOS, CBC #### [place] [address] USAWBC (Bld) [#/Vol]10.2 10*3/uLNormal3.8-11.6The [facility] Physician GroupComment on above:Performed By: #### CMP, MG, PHOS, CBC #### [place] [id number] USAWBC (Bld) [#/Vol]10.9 10*3/uLNormal3.8-11.6The [facility] Physician GroupComment on above:Performed By: #### CMP, MG, PHOS, CBC #### [facility] [address] [place] [address] USASerum or plasma albumin/globulin mass ratioOrdered By: Wesley Villafuerte on 88-21-7995Jxmanad/Globulin [Mass ratio]Serum or plasma albumin/globulin mass ratioHolzer Hospitalerum or plasma anion gap determinationOrdered By: Wesley Villafuerte on 29-51-2860Vuusz gap [Moles/Vol]Serum or plasma anion gap determination6.0-15.0Holzer Hospitalodium [Moles/volume] in Serum or PlasmaOrdered By: Wesley Villafuerte on 57-41-5634Tskijk [Moles/Vol]Sodium [Moles/volume] in Serum or Prylhh850-722 Holzer Hospitalpecific gravity Test strip (U) [Rel density] Ordered By: Wesley Villafuerte on 89-30-9698Jbtubxiu gravity (U) [Rel density]Specific gravity of Urine by Test stripHigh1.001-1.030[facility] Troponin I High Sensitivityon 77-80-9761Gmwdpctp I High Sensitivity5.1 pg/mL Normal0.0-15.0The [facility] Physician GroupComment on above:Result Comment: PERFORMED BY: [address] [place] [address] PATHOLOGIST ADJUNCT FACULTY INSTRUCTOR LE MACE M.D.Performed By: #### CMP, MG, PHOS, CBC #### [facility] [address] [place] [id number] USATroponin I.cardiac [Mass/volume] in Serum or Plasma by Detection limit <= 0.01 ng/Ordered By: Wesley Villafuerte on 05-02-0199Lsndwkno I.cardiac DL <= 0.01 ng/mL [Mass/Vol]Troponin I.cardiac [Mass/volume] in Serum or Plasma by Detection limit <= 0.01 ng/0.0-15.0[facility] Medical CenterUrea nitrogen [Mass/volume] in Serum or PlasmaOrdered By: Wesley Villafuerte on 91-13-8694Ychc nitrogen [Mass/Vol]Urea nitrogen [Mass/volume] in Serum or Plasma 11-20D[facility] Medical CenterUrobilinogen Test strip (U) [Mass/Vol] Ordered By: Wesley Villafuerte on 33-28-1800Hspnujuydhyr (U) [Mass/Vol]Urobilinogen [Mass/volume] in Urine by Test stripNormalDiley Ridge Medical CenterWBC Auto (Bld) [#/Vol]Ordered By: Wesley Villafuerte on 28-87-9523IMV (Bld) [#/Vol] Leukocytes [#/volume] in Blood by Automated count3.8-11.6FCleveland Clinic South Pointe HospitalX-ray reportOrdered By: zO Bowling on 59-84-3256Wylks report [facility] [address] XRay Report Signed Patient: Taye Gay MR#: [id number] : 1955 Acct:[id number] Age/Sex: 68 / F ADM Date: 4 Loc: ER Room: Type: [facility] ER Attending Dr: Copies to: Wesley Villafuerte [...] Bowling II, MD 04/28/242143 Signed By: 04/28/242145 [facility] Work Phone: XR chest 2V*on 38-44-7445FE chest 2V*[facility] Main [place] [address] [place] [address] XRay Report Signed Patient: Taye Gay MR#: [id number] 19 : 1955 Acct:[id number] Age/Sex: 68 / F ADM Date: 04/28/24 Loc: ER Room: Type: [facility] ER Attending Dr: Copies to: Wesley Villafuerte [...] Oz Bowling II, MD 04/28/242143 Signed By: 04/28/242145NoSwain Community Hospital Physician GroupYeast.budding [Presence] in Urine by Computer assisted methodOrdered By: Wesley Villafuerte on 04-28-2024 Yeast.budding Computer assisted Ql (U)Yeast.budding [Presence] in Urine by Computer assisted methodDayton Children's HospitalaPTT in Platelet poor plasma by Coagulation assayOrdered By: Wesley Villafuerte on 04-28-2024 aPTT Coag (PPP) [Time]Activated partial thromboplastin time (aPTT) in platelet poor plasma by coagulation a25.1-36.5FCleveland Clinic South Pointe HospitalComment on above:A hematocrit value greater than 55% may lead to inaccurate results in coagulation testing. Patientshaving hematocrit values >55% require a special collection tube for coagulation studies. Please contact the laboratory at [phone] for redraw instructions.pH Test strip (U)Ordered By: Wesley Villafuerte on 39-82-9823nJ (U)pH of Urine by Test strip5.0-9.0[facility] Medical CenterECG 12 lead ECGon 71-35-6064EOF 12 lead ECGDAYTON CHILDR[facility] [address] Electrocardiograph Report Signed Patient: Taye Gay MR#: [id number] [birth year] : 1955 Acct:[id number] Age/Sex: 68 / F ADM Date: 04/27/24 Loc: ER Room: Type: [facility] ER Attending Dr: Ordering Provider: Rl [...] By: MUS Signed By Rl Villavicencio DO 0219[facility] Physician GroupAlanine aminotransferase [Enzymatic activity/volume] in Serum or PlasmaOrdered By: Nataliya aJne on 15-73-8697WOV [Catalytic activity/Vol]Alanine aminotransferase [Enzymatic activity/volume] in Serum or Plasma7-52[facility] Medical CenterAlbumin [Mass/volume] in Serum or Plasma by Bromocresol green (BCG) dye binding methoOrdered By: Nataliya Jane on 33-48-6023Xdtkdpe BCG dye [Mass/Vol]Albumin [Mass/volume] in Serum or Plasma by Bromocresol green (BCG) dye binding metho3.5-5.7FCleveland Clinic South Pointe HospitalAlkaline phosphatase [Enzymatic activity/volume] in Serum or PlasmaOrdered By: Nataliya Jane on 69-17-7962FVC [Catalytic activity/Vol] Alkaline phosphatase [Enzymatic activity/volume] in Serum or Eujxvx08-614 [facility] CenterAspartate aminotransferase [Enzymatic activity/volume] in Serum or PlasmaOrdered By: Nataliya Jane on 41-14-9879MQO [Catalytic activity/Vol]Aspartate aminotransferase [Enzymatic activity/volume] in Serum or Kahqep82-66KamzcghivDiley Ridge Medical CenterBilirubin.total [Mass/volume] in Serum or PlasmaOrdered By: Nataliya Jane on 47-35-1725Zxpunifff [Mass/Vol]Bilirubin.total [Mass/volume] in Serum or Plasma0.3-1.0[facility] CenterCB W Auto Differential panel (Bld)on 60-68-5048Cgrthrpui (Bld) [#/Vol]0.1 10*3/uL0.0 - 0.2 10*3/uLNOMS HealthcareBasophils/100 WBC Manual cnt (Syn fld)0.6 %.NOMS HealthcareEosinophils (Bld) [#/Vol]0.3 10*3/uL0.0 - 0.45 10*3/uLNOMS HealthcareEosinophils/100 WBC Manual cnt (Syn fld)2.6 %.NOMS HealthcareErythrocyte distribution width (RBC) [Ratio]15 %11.9 - 15.3 %NOMS HealthcareHematocrit (Bld) [Volume fraction]49.7 %High34.0 - 46.4 %NOMS HealthcareHemoglobin (Bld) [Mass/Vol]16.6 g/pXOjkk01.8 - 15.4 g/dLNONH HealthcareInterpretation and review of laboratory resultsAbnormalNONH Healthcare Lymphocytes (Bld) [#/Vol]2.1 10*3/uL1.00 - 4.8 10*3/uLNOMS Healthcare Lymphocytes/100 WBC Manual cnt (Syn fld)19.3 %.[facility] CenterH (RBC) [Entitic mass]31.2 pg24.7 - 34.3 pgSt. Joseph Medical CenterHC (RBC) [Mass/Vol]33.4 g/dL32.0 - 35.0 g/dLSt. Joseph Medical CenterV (RBC) [Entitic vol]93.4 fL80 - 100 fLAL[facility] VIEW [facility] Healthcare Monocytes (Bld) [#/Vol]0.9 10*3/uLHigh0.0 - 0.8 10*3/uLNOMS Healthcare Monocytes+Macrophages/100 WBC Manual cnt (Syn fld)8.7 %.[facility] Neutrophils (Bld) [#/Vol]7.3 10*3/uL1.8 - 7.7 10*3/uLNOMS Healthcare Neutrophils/100 WBC Manual cnt (Syn fld)68.8 %.[facility] HealthcareNRBC0.1 /100{WBC}0 - 0.5 /100{WBC}[facility] HealthcarePlatelet mean volume (Bld) [Entitic vol]8.9 fL6.3 - 10.7 fLALTA VIEW HOSPITAL HealthcarePlatelets (Bld) [#/Vol]167 10*3/uL150 - 450 10*3/uLNOMS HealthcareRBC LM.HPF (Urine sed) [#/Area]5.32 10*6/uLHigh3.60 - 5.00 10*6/uLNOMS [facility] So[facility] Medical CenterWBC (Bld) [#/Vol]10.7 10*3/uL3.8 - 11.6 10*3/uLNOMS HealthcareWBC LM.HPF (Urine sed) [#/Area]10.7 10*3/uL3.8 - 11.6 10*3/uLNOMS [facility] HealthcareCalcium [Mass/volume] in Serum or PlasmaOrdered By: Nataliya Jaen on 51-28-7523Sqpoiwf [Mass/Vol]Calcium [Mass/volume] in Serum or Plasma8.6-10.3 [facility] CenterCarbon dioxide, total [Moles/volume] in Serum or PlasmaOrdered By: Nataliya Jane on 95-78-7308PH6 [Moles/Vol]Carbon dioxide, total [Moles/volume] in Serum or Voocah30.0-31.0[facility] CenterChloride [Moles/volume] in Serum or PlasmaOrdered By: Nataliya Jane on 54-80-2108Moauwrnm [Moles/Vol]Chloride [Moles/volume] in Serum or Mwxbrh50-004 [facility] CenterComplete Blood Count Auto Diffon 04-14-2024 Basophils (Bld) [#/Vol]0.1 10*3/uLNormal0.0-0.2[facility] Comment on above:Result Comment: PERFORMED BY: [place] [address] PATHOLOGIST ADJUNCT FACULTY INSTRUCTOR LE MACE M.D.Performed By: #### CMP, LDH, PATH SLIDE REV, CBC #### [place] [address] USABasophils/100 WBC (Bld)0.6 %Normal.The [facility] Physician GroupComment on above:Performed By: #### CMP, LDH, PATH SLIDE REV, CBC #### [place] [address] USAEosinophils (Bld) [#/Vol]0.3 10*3/uLNormal0.0-0.45The [facility] Physician GroupComment on above:Performed By: #### CMP, LDH, PATH SLIDE REV, CBC #### [place] [address] USAEosinophils/100 WBC (Bld)2.6 %Normal.The [facility] Physician GroupComment on above:Performed By: #### CMP, LDH, PATH SLIDE REV, CBC #### [place] [address] USAErythrocyte distribution width (RBC) [Ratio]15.0 %Normal 11.9-15.3The [facility] Physician GroupComment on above:Performed By: #### CMP, LDH, PATH SLIDE REV, CBC #### [place] [address] USAHematocrit (Bld) [Volume fraction]49.7 %High34.0-46.4The [facility] Physician GroupComment on above:Performed By: #### CMP, LDH, PATH SLIDE REV, CBC #### [place] [address] USAHemoglobin (Bld) [Mass/Vol]16.6 g/mPOqdi17.8-15.4The [facility]ly Physician GroupComment on above:Performed By: #### CMP, LDH, PATH SLIDE REV, CBC #### [place] [address] USALymphocytes (Bld) [#/Vol]2.1 10*3/uLNormal1.00-4.8The [facility] Physician GroupComment on above:Performed By: #### CMP, LDH, PATH SLIDE REV, CBC #### [place] [address] USALymphocytes/100 WBC (Bld)19.3 %Normal.The [facility] Physician GroupComment on above:Performed By: #### CMP, LDH, PATH SLIDE REV, CBC #### [place] [address] USAMCH (RBC) [Entitic mass]31.2 huIspsbk64.7-34.3The [facility] Physician GroupComment on above:Performed By: #### CMP, LDH, PATH SLIDE REV, CBC #### [address] (RBC) [Entitic vol]93.4 wDUsbatj80-003Vaj [facility] Physician GroupComment on above:Performed By: #### CMP, LDH, PATH SLIDE REV, CBC #### [place] [address] USAMean Corpuscular HGB Conc33.4 g/tPMuaefj15.0-35.0The [facility] Physician GroupComment on above:Performed By: #### CMP, LDH, PATH SLIDE REV, CBC #### [place] [address] USAMonocytes (Bld) [#/Vol]0.9 10*3/uLHigh0.0-0.8The [facility] Physician GroupComment on above:Performed By: #### CMP, LDH, PATH SLIDE REV, CBC #### [facility] [address] [place] [address] USAMonocytes/100 WBC (Bld)8.7 %Normal.The [facility] Physician GroupComment on above:Performed By: #### CMP, LDH, PATH SLIDE REV, CBC #### [facility] [address] [place] [address] USANeutrophils (Bld) [#/Vol]7.3 10*3/uLNormal1.8-7.7The [facility] Physician GroupComment on above:Performed By: #### CMP, LDH, PATH SLIDE REV, CBC #### [place] [address] USANeutrophils/100 WBC (Bld)68.8 %Normal.The [facility] Physician GroupComment on above:Performed By: #### CMP, LDH, PATH SLIDE REV, CBC #### [facility] [address] [place] [address] USANRBC%0.1 /100{WBC}Normal0-0.5The [facility] Comment on above:Performed By: #### CMP, LDH, PATH SLIDE REV, CBC #### [place] [address] USAPlatelet mean volume (Bld) [Entitic vol]8.9 fLNormal 6.3-10.7The [facility] Physician GroupComment on above:Performed By: #### CMP, LDH, PATH SLIDE REV, CBC #### [facility] [address] [place] [address] USAPlatelets (Bld) [#/Vol]167 10*3/mQOonfrk144-775Mtk [facility] Physician GroupComment on above:Performed By: #### CMP, LDH, PATH SLIDE REV, CBC #### [place] [address] USARBC (Bld) [#/Vol]5.32 10*6/uLHigh3.60-5.00The [facility] Physician GroupComment on above:Performed By: #### CMP, LDH, PATH SLIDE REV, CBC #### [place] [address] USAWBC (Bld) [#/Vol]10.7 10*3/uLNormal3.8-11.6The [facility] Physician GroupComment on above:Performed By: #### CMP, LDH, PATH SLIDE REV, CBC #### [place] [address] USAComprehensive Metabolic Panelon 02-49-8490Qgfifvj [Mass/Vol]4.1 g/dLNormal3.5-5.7The [facility] Physician GroupComment on above: Performed By: #### CMP, LDH, PATH SLIDE REV, CBC #### [place] [address] USAAlbumin/Globulin [Mass ratio]1.2 {ratio}NormalThe [facility] Physician GroupComment on above:Performed By: #### CMP, LDH, PATH SLIDE REV, CBC #### [place] [address] USAALP [Catalytic activity/Vol]92 U/LOfrkon39-250Ltv [facility] Physician GroupComment on above:Performed By: #### CMP, LDH, PATH SLIDE REV, CBC #### [place] [address] USAALT [Catalytic activity/Vol]20 U/LNormal7-52The [facility] Physician GroupComment on above:Performed By: #### CMP, LDH, PATH SLIDE REV, CBC #### [place] [address] USAAnion gap [Moles/Vol]16.1 mmol/LHigh6.0-15.0The [facility] Physician GroupComment on above:Performed By: #### CMP, LDH, PATH SLIDE REV, CBC #### [place] [address] USAAST [Catalytic activity/Vol]26 U/ETjcbzy02-00Pfu [facility] Physician GroupComment on above:Performed By: #### CMP, LDH, PATH SLIDE REV, CBC #### [place] [address] USABilirubin [Mass/Vol]0.6 mg/dLNormal0.3-1.0The [facility] Physician GroupComment on above:Performed By: #### CMP, LDH, PATH SLIDE REV, CBC #### [place] [address] USACalcium [Mass/Vol]10.0 mg/dLNormal8.6-10.3The [facility] Physician GroupComment on above:Performed By: #### CMP, LDH, PATH SLIDE REV, CBC #### [place] [address] USAChloride [Moles/Vol]101 mmol/EEkinax53-448Tzn [facility] Physician GroupComment on above:Performed By: #### CMP, LDH, PATH SLIDE REV, CBC #### [place] [address] USACO2 [Moles/Vol]26.9 mmol/DLlzjor14.0-31.0The [facility] Physician GroupComment on above:Performed By: #### CMP, LDH, PATH SLIDE REV, CBC #### [place] [address] USACreatinine [Mass/Vol]0.83 mg/dLNormal0.60-1.20The [facility] Physician GroupComment on above:Performed By: #### CMP, LDH, PATH SLIDE REV, CBC #### [place] [address] USACreatinine Clr Calc Vhbcytjh79.05NormalThe [facility] Physician GroupComment on above:Performed By: #### CMP, LDH, PATH SLIDE REV, CBC #### [place] [address] USAGFR/1.73 sq M.predicted MDRD (S/P/Bld) [Vol rate/Area] mL/min/{1.73_m2}NormalThe [facility] Physician GroupComment on above:Performed By: #### CMP, LDH, PATH SLIDE REV, CBC #### [facility] [address] [place] [address] USAGlobulin (S) [Mass/Vol]3.3 g/dLNormalThe [facility] Physician GroupComment on above:Performed By: #### CMP, LDH, PATH SLIDE REV, CBC #### [facility] [address] [place] [address] USAGlucose [Mass/Vol]169 mg/jWQuct07-148Fmp [facility] Physician GroupComment on above:Result Comment: Random Glucose Reference Range is dependent on time and content of last meal. Glucose of more than 200 mg/dL in a nonstressed, ambulatory subject supports the diagnosis of Diabetes Mellitus. ADA recommended reference rangePerformed By: #### CMP, LDH, PATH SLIDE REV, CBC #### [facility] [address] [place] [address] USAPotassium [Moles/Vol]4.0 mmol/LNormal3.5-5.1The [facility] Physician GroupComment on above:Performed By: #### CMP, LDH, PATH SLIDE REV, CBC #### [facility] [address] [place] [address] USAProtein [Mass/Vol]7.4 g/dLNormal6.4-8.9The [facility] Physician GroupComment on above:Performed By: #### CMP, LDH, PATH SLIDE REV, CBC #### [facility] [address] [place] [address] USASodium [Moles/Vol]140 mmol/ONgdmpp682-244Xaz [facility] Physician GroupComment on above:Performed By: #### CMP, LDH, PATH SLIDE REV, CBC #### [facility] [address] [place] [address] USAUrea nitrogen [Mass/Vol]8 mg/dLNormal7-25The [facility] Physician GroupComment on above:Performed By: #### CMP, LDH, PATH SLIDE REV, CBC #### [facility] [address] [place] [address] USAComprehensive metabolic panelon 02-09-1661Eozarkl [Mass/Vol]4.1 g/dL3.5 - 5.7 g/dLNOMS HealthcareAlbumin/Globulin [Mass [...] HealthcareCreatinine (U) [Mass/Vol] 0.83 mg/dL0.60 - 1.20 mg/dLNONH HealthcareCREATININE CLR CALC EKTAAZHV96.05NONH HealthcareESTIMATED GFRmL/MinNOMS HealthcareGlobulin (S) [Mass/Vol]3.3 g/dLNONH HealthcareGlucose [Mass/Vol]169 mg/mSWddz98 - 100 mg/dLNONH HealthcareComment on above:Random Glucose Reference Range is dependent on time and content of last meal. Glucose of more than 200 mg/dL in a nonstressed, ambulatory subject supports the diagnosis of Diabetes Mellitus. ADA recommended reference range Interpretation and review of laboratory resultsAbnormalNOMS HealthcarePotassium [Moles/Vol]4 mmol/L3.5 - 5.1 mmol/LNOMS HealthcareProtein [Mass/Vol]7.4 g/dL6.4 - 8.9 g/dLNONH HealthcareSodium [Moles/Vol]140 mmol/L136 - 145 mmol/LNOMS HealthcareUrea nitrogen [Mass/Vol]8 mg/dL7 - 25 mg/dLNONH HealthcareCreatinine [Mass/volume] in Serum or PlasmaOrdered By: Nataliya Jane on 04-14-2024 Creatinine [Mass/Vol]Creatinine [Mass/volume] in Serum or Plasma0.60-1.20 [facility] Medical CenterGlobulin Calc (S) [Mass/Vol]Ordered By: Nataliya Jane on 96-51-1638Nqcmkivv (S) [Mass/Vol]Serum globulin measurement by calculation (mass/volume)[facility] Medical CenterGlucose [Mass/volume] in Serum or PlasmaOrdered By: Nataliya Jane on 99-70-2569Uxilwyf [Mass/Vol] Glucose [Mass/volume] in Serum or CumllxTcde42-770HfdpzexwfDiley Ridge Medical CenterComment on above:ADA recommended reference rangeRandom Glucose Reference Range is dependent on time and content of last meal. Glucose of more than 200 mg/dL in a nonstressed, ambulatory subject supports the diagnosisof Diabetes Mellitus.Juan 04-14-2024L Specimen: [id number] Received: 04/14/24 Status: FIDEL Leontaylor Num: [id number] Spec Type: Impression Subm Dr: Nataliya Jane APRN Tissues: PATHPER Procedures: PATHREVIEW Age/ Patient Sex Location Account Attending Physician Taye Gay 68/F XT [id number] Nataliya Jane APRN SPEC NUM: [id number] RECD: 04/14/24 STATUS: [facility] CELY NUM: [id number] RONNY: 04/14/24- SUBM DR: Naatliya Jane APRN ENTERED: 04/14/[address] [facility] [address]: SPEC TYPE: Impression DEPT: [place] ENTERED BY: [id number] RECV BY: [id number] ORDERED: PATHREVIEW ORDERED: PATHREVIEW Pathologist Review Abnormal [...] chronic smoking. Clinical correlations are suggested CPT: 10909 Specimen: [id number] Received: 04/14/24 Status: FIDEL Knox Num: [id number] Spec Type: Impression Subm Dr: Nataliya Jane APRN Tissues: PATHPER Procedures: PATHREVIEW Patient: Taye Gay [id number] (Continued) Specimen: [id number] Received: 04/14/24 (Continued) Signed (signature on file) Nereyda Holt MD 04/15/24 0920 Specimen: [id number] Received: 04/14/24 Status: FIDEL Knox Num: [id number] Spec Type: Impression Subm Dr: Nataliya Jane APRN Tissues: PATHPER Procedures: PATHREVIEW Patient: Taye Gay [id number] (Continued) Specimen: [id number] Received: 04/14/24-1147 (Continued) CBC [...] % Lymp % (Auto) 19.3 . % [place] % (Auto) 8.7 . % Eos % (Auto) 2.6 . % Baso % (Auto) 0.6 . % NRBC% 0.1 0-0.5 /100 WBC Neut # (Auto) 7.3 1.8-7.7 x10E3/uL Lymph # (Auto) 2.1 1.00-4.8 x10E3/uL [place] # (Auto) 0.9 H 0.0-0.8 x10E3/uL Eos # (Auto) 0.3 0.0-0.45 x10E3/uL Baso# (Auto) 0.1 0.0-0.2 x10E3/uL Specimen: [id number] Received: 04/14/24 Status: FIDEL Knox Num: [id number] Spec Type: Impression Subm Dr: Nataliya Jane APRN Tissues: PATHPER Procedures: PATHREVIEW Patient: Taye Gay [id number] (Continued) Signed (signature on file) Nereyda Holt MD 04/15/24 0920Norm[facility] Physician [facility] Lactate Dehydrogenaseon 37-47-0537XAC Lactate Efwswweqewddq615 U/JGjuqgc742-760Xef [facility] Physician GroupComment on above:Result Comment: PERFORMED BY: [facility] [place] [address] PATHOLOGIST ADJUNCT FACULTY INSTRUCTOR LE MACE M.D.Performed By: #### CMP, LDH, PATH SLIDE REV, CBC #### [facility] [address] [place] [address] USALDH Lactate to pyruvate reaction [Catalytic activity/Vol] on 11-59-9588LNO LACTATE JRXVAKXWKXLLX660 U/L140 - 271 U/LNOMS HealthcareLactate dehydrogenase [Enzymatic activity/volume] in Serum or Plasma by Lactate to py Ordered By: Nataliya Lucinda on 21-06-6023MFY Lactate to pyruvate reaction [Catalytic activity/Vol]Lactate dehydrogenase [Enzymatic activity/volume] in Serum or Plasma by Lactate to eh142-458BzfytrwfvDiley Ridge Medical CenterNo Panel Informationon 20-69-1776WLBB HealthcareNo Panel InformationOrdered By: Nataliya Jane on 49-47-0135Grthquymy GFR (CKD-EPI)> 60.0 mL/MinDiley Ridge Medical CenterPharmacy Creatinine Clearance (Chem78.05Holzer Hospitallides for Pathologist ReviewOrdered path reviewDiley Ridge Medical CenterPATHOLOGIST SLIDE REVIEW ([facility])on 07-41-0444YNBLYNYDWYC SLIDE REVIEW Ordered Path ReviewNOAurora Medical Center– BurlingtonPathologist Slide Reviewon 31-24-0796Whqlwzyidyw Slide ReviewOrdered Path ReviewHCA Florida Memorial Hospital Physician GroupComment on above:Result Comment: PERFORMED BY: [facility] [address] [place] [address] PATHOLOGIST ADJUNCT FACULTY INSTRUCTOR LE MACE M.D.Performed By: #### CMP, LDH, PATH SLIDE REV, CBC #### [facility] [address] [place] [address] USAPotassium [Moles/volume] in Serum or PlasmaOrdered By: Nataliya Jane on 35-63-6823Dajgeovah [Moles/Vol]Potassium [Moles/volume] in Serum or Plasma3.5-5.1FCleveland Clinic South Pointe HospitalProtein [Mass/volume] in Serum or PlasmaOrdered By: Nataliya Jane on 63-39-3365Wmsnznm [Mass/Vol]Protein [Mass/volume] in Serum or Plasma6.4-8.9Holzer Hospitalerum or plasma albumin/globulin mass ratioOrdered By: Nataliya Jane on 04-14-2024 Albumin/Globulin [Mass ratio]Serum or plasma albumin/globulin mass ratio Holzer Hospitalerum or plasma anion gap determinationOrdered By: Nataliya Jane on 23-90-9246Vncvs gap [Moles/Vol]Serum or plasma anion gap determinationHigh6.0-15.0Holzer Hospitalodium [Moles/volume] in Serum or PlasmaOrdered By: Nataliya Jane on 19-42-1483Xaxwyu [Moles/Vol] Sodium [Moles/volume] in Serum or Ypymls207-968CmxnqggrnDiley Ridge Medical Center Urea nitrogen [Mass/volume] in Serum or PlasmaOrdered By: Nataliya Jane on 45-50-7720Tyau nitrogen [Mass/Vol]Urea nitrogen [Mass/volume] in Serum or Plasma 7-[facility] Ridge Medical CenterECG 12 [place]on 55-81-4905Kcyljn sinus rhythm [facility] Work Phone: [facility] Work Phone: aerobic cultureOrdered By: Karl Fritz on 94-23-8700Xcbtfncq identified Aer cx Nom (Unsp spec)[facility] Medical CenterECG [address] [place] 70-92-9421PgqwdzkvymUC Medical Center Work Phone: Normal sinus rhythmCPACSUC Medical Center Work Phone: aNAon 86-44-6275VSWBVPTASBV ABS, IFAPositiveCritically abnormal.NOMS HealthcareComment on above:Negative <1:80 [...] Scleroderma-diffuse, Scleroderma-Autoimmune Myositis Overlap Syndrome, Systemic Lupus Cjawhibcdsylg-Wlmiovnuafc-Qllwblddvt Myositis Overlap Syndrome, Systemic Autoimmune Rheumatic Disease, [...] Cytopenias, Linear Scleroderma, Antiphospholipid Syndrome Performed at: [address] [id number] Tour Consultant: Yuri Osullivan PhD, Phone: [phone] SPECKLED PATTERN1:320High.NOMS HealthcareComment on above:ICAP nomenclature: AC-2,4,5,29ANCA PROFILE (ANCA+MPO+PR3)on 31-95-9702CUERDYBLNTICIRBYPHC (MPO) ABS <0.20.0 - 0.9NOMS HealthcareATYPICAL PANCA<1:20Neg:<1:20NOMS HealthcareComment on above:The atypical pANCA pattern has been observed in a significant percentage of patients with ulcerative colitis, primary sclerosing cholangitis and autoimmune hepatitis. Performed at: [facility] [employer] [id number] Tour Consultant: Christine Pham MD, Phone: [phone] Performed at: [email or web address] [id number] Tour Consultant: Yuri Osullivan PhD, Phone: [phone] CYTOPLASMIC (C-ANCA)<1:20Neg:<1:20NOMS HealthcarePERINUCLEAR (P-ANCA)<1:20 Neg:<1:20NOMS HealthcareComment on above:The presence of positive fluorescence exhibiting P-ANCA or C-ANCA patterns alone is not specific for the diagnosis of Marni's Granulomatosis (WG) or microscopic polyangiitis. Decisions about treatment should not be based solely on ANCA IFA results. The International ANCA Group Consensus recommends follow up testing of positive sera with both W[place]- 3 and MPO-ANCA enzyme immunoassays. As many as 5% serum samples are positive only by EIA. Ref. AM J Clin Pathol 1999;111:507-513. PROTEINASE 3 (PR3) ANTIBODIES<0.20.0 - 0.9NOMS HealthcareANTI-CENTROMERE B ANTIBODIESon 30-46-7805QLUC-CENTROMERE B ANTIBODIES<0.20.0 - 0.9N[facility]S Healthcare Comment on above:Performed at: [email or web address] [id number] Tour Consultant: Yuri Osullivan PhD, Phone: [phone] ANTI-DSDNA(DBL)ABon 01-90-6477OULR-DSDNA(DBL)AB10 - 9NOMS HealthcareComment on above:Negative <5 Equivocal 5 - 9 Positive >9 ANTI-RNPon 19-16-9385IDBP-RNP0.30.0 - 0.9NOMS HealthcareANTIRIBOSOMAL P ANTIBODIESon 54-65-8535NXMXRKYEDBYYV P ANTIBODIES<0.20.0 - 0.9[facility] Healthcare Anti-Fritz antibodyon 84-61-0552OTGB-FRITZ ANTIBODIES<0.20.0 - 0.9NOMS HealthcareHISTONE ANTIBODIESon 51-51-1200BUWHPEM ANTIBODIES0.60.0 - 0.9NOMS HealthcareComment on above:Negative <1.0 Weak Positive 1.0 - 1.5 Moderate Positive 1.6 - 2.5 Strong Positive >2.5 Performed at: [address] [id number] Tour Consultant: Christine Pham MD, Phone: [phone] SUSHMA-1 ANTIBODYon 47-77-7724SX-1 ANTIBODY<0.20.0 - 0.9NOMS HealthcareMitochondrial antibodies, M2on 09-76-0101NNUTFPEWXPKXA (M2) ANTIBODY<20.00.0 - 20.0NOMS HealthcareComment on above:Negative 0.0 - 20.0 Equivocal 20.1 - 24.9 Positive >24.9 Mitochondrial (M2) Antibodies are found in 90-96% of patients with primary biliary cirrhosis. Performed at: [address] [id number] Tour Consultant: Yuri Osullivan PhD, Phone: [phone] No Panel Informationon 07-11-9798JAIY HealthcareSCLERODERMA 70 ANTIBODIESon 62-49-5420XJXYVWZFJBZ 70 ANTIBODIES<0.20.0 - 0.9NOMS HealthcareSJOGRENS ANTI-SSA/SSBon 68-42-9632RZ-A/RO SJOGRENS ANTIBODY<0.20.0 - 0.9N[facility] Healthcare SS-B/LA SJOGRENS ANTIBODY<0.20.0 - 0.9NOMS HealthcareSRP AUTOANTIBODIESon 27-95-4677HVX (SIGNAL RECOG. PARTICLE)NegativeNegativeNOMS HealthcareComment on above:This test was developed and its performance characteristics determined by [facility]. It has not been cleared or approved by the Food and Drug Administration. Performed at: [facility] [employer] [address] [place] [id number] Tour Consultant: Juan Cruz MD, Phone: [phone] Alanine aminotransferase [Enzymatic activity/volume] in Serum or PlasmaOrdered By: Tolu Salinas on 39-62-6181LNW [Catalytic activity/Vol]31 U/L7-52[facility] Medical CenterAlbumin [Mass/volume] in Serum or Plasma by Bromocresol green (BCG) dye binding methoOrdered By: Tolu Salinas on 89-66-3435Pkbzmrx BCG dye [Mass/Vol]4.2 g/dL3.5-5.7FCleveland Clinic South Pointe HospitalAlkaline phosphatase [Enzymatic activity/volume] in Serum or PlasmaOrdered By: Tolu Salinas on 60-04-3321KTS [Catalytic activity/Vol]75 U/M12-630OiuqyzauyDiley Ridge Medical CenterAspartate aminotransferase [Enzymatic activity/volume] in Serum or PlasmaOrdered By: Tolu Salinas on 50-55-8426TLS [Catalytic activity/Vol]37 U/L 13-39D[facility] Medical CenterBasophil percentageOrdered By: Oz Kincaid on 87-84-3087Nhuwaiuo uwsrdftebs54 ug/cM96-576NvsynzweqDiley Ridge Medical Center Comment on above:This test was developed and its performance characteristicsdetermined by [employer]. It has not been cleared orapproved by the Food and Drug Administration. Detection Limit = 5Performed at: [address] [id number] Director: Christine Pham MD, Phone: [phone] percentage2 ug/L0-9[facility] Medical CenterComment on above:This test was developed and its performance characteristicsdetermined by [employer]. It has not been cleared orapproved by the Food and Drug Administration. Detection Limit = 1Bilirubin.total [Mass/volume] in Serum or PlasmaOrdered By: Tolu Salinas on 39-16-2227Ivsmwzgrt [Mass/Vol]0.4 mg/dL0.3-1.0[facility] Medical CenterBlood lead detectionOrdered By: Oz Kincaid on 85-11-0100Umrr Ql (Bld)<1.0 ug/dL0.0-3.4FCleveland Clinic South Pointe HospitalComment on above:Testing performed by Inductively coupled plasma/MassSpectrometry.Analysis by inductively coupled plasma/massspectrometry (ICP/MS)This test was developed and its performance characteristicsdetermined by [employer]. It has not been cleared orapproved by the Food and Drug Administration. Environmental Exposure: WHO Recommendation <5.0 Occupational Exposure: OSHA Lead Std 40.0 BOB 30.0 Detection Limit = 1.0Performed at: [facility] [employer] [id number] Director: Yuri bynum PhD, Phone: [phone] mercury measurement (mass/volume)Ordered By: Oz Kincaid on 13-14-4323Nqutlcm (Bld) [Mass/Vol]<1.0 ug/L0.0-14.9D[facility] Medical CenterComment on above:This test was developed and its performance characteristicsdetermined by [employer]. It has not been cleared orapproved by the Food and Drug Administration. Detection Limit = 1.0Performed at: [email or web address] [id number] Director: Christine Pham MD, Phone: [phone] [Mass/volume] in Serum or PlasmaOrdered By: Tolu Salinas on 61-26-3399Pdizybd [Mass/Vol]9.9 mg/dL 8.6-10.3FCleveland Clinic South Pointe HospitalCarbon dioxide, total [Moles/volume] in Serum or PlasmaOrdered By: Tolu Salinas on 47-17-1138WS2 [Moles/Vol]32.0 mmol/LHigh21.0-31.0D[facility] Medical CenterChloride [Moles/volume] in Serum or PlasmaOrdered By: Tolu Salinas on 76-98-3156Mfhaqsbz [Moles/Vol]103 mmol/F21-808VlkgzltlzDiley Ridge Medical CenterCreatinine [Mass/volume] in Serum or PlasmaOrdered By: Tolu Salinas on 19-43-2137Nnhmegaahq [Mass/Vol]0.97 mg/dL 0.60-1.20D[facility] Medical CenterGlobulin Calc (S) [Mass/Vol]Ordered By: Tolu Salinas on 58-42-7600Rhgslahv (S) [Mass/Vol]2.7 g/dLDiley Ridge Medical CenterGlucose [Mass/volume] in Serum or PlasmaOrdered By: Tolu Salinas on 00-85-3539Galysfb [Mass/Vol]114 mg/mPVvdg77-663KfnhrrtjcDiley Ridge Medical CenterComment on above:ADA recommended reference rangeRandom Glucose Reference Range is dependent on time and content of last meal. Glucose of more than 200 mg/dL in a nonstressed, ambulatory subject supports the diagnosisof Diabetes Mellitus.HIV 1 and HIV-2 antibody assay with HIV-1 p24 antigen detectionOrdered By: Oz Kincaid on 97-70-3521VJQ 1+2 Ab+HIV1 p24 Ag IA QlNon-ReactiveNon Reactive [facility] CenterComment on above:HIV-1/HIV-2 antibodies and HIV-1 p24 antigen were NOTdetected. There is no laboratory evidence of HIV infection.HIV NegativePerformed at: [facility] LabJason Ville [id number] Director: Yuri Osullivan PhD, Phone: [phone] B virus surface Ag [Presence] in Serum or Plasma by ImmunoassayOrdered By: Oz Kincadi on 55-32-4938HIZ surface Ag IA QlNegativeNegativeDiley Ridge Medical CenterHepatitis C virus IgG Ab [Presence] in Serum or Plasma by Immunoassay Ordered By: Oz Kincaid on 52-65-6640HXI IgG IA QlNon-ReactiveNon ReactiveDiley Ridge Medical CenterHepatitis C virus RNA [Units/volume] (viral load) in Serum or Plasma by TEJINDER with probOrdered By: Oz Kincaid on 66-70-5404QOB RNA TEJINDER+probe QnN/[facility] HospitalHepaintsville arh hospitaltis C virus RNA [log units/volume] (viral load) in Serum or Plasma by TEJINDER withOrdered By: Oz Kincaid on 43-21-9095VAR RNA TEJINDER+probe [Log units/Vol]/[facility] Lactate dehydrogenase [Enzymatic activity/volume] in Serum or Plasma by Lactate to pyOrdered By: Oz Kincaid on 41-67-4385WCR Lactate to pyruvate reaction [Catalytic activity/Vol]156 U/Y246-802HrdjrjuqkDiley Ridge Medical CenterMagnesium [Mass/volume] in Serum or PlasmaOrdered By: Tolu Salinas on 06-90-3092Txqvnbphs [Mass/Vol]2.0 mg/dL1.9-2.7FCleveland Clinic South Pointe HospitalNo Panel Information Ordered By: Oz Kincaid on 97-88-2327Rinacegbiyhev Test 2See [facility]cy HospitalComment on above:See report. Scanned copy available in EMR.Hepatitis A IgM AntibodyNegativeNegativeDiley Ridge Medical Center Hepatitis B Core IgM AntibodyNegativeNegativeDiley Ridge Medical Center Hepatitis C InterpretationComment.[facility] Medical CenterComment on above:Not infected with HCV unless early or acute infection issuspected (which may be delayed in an immunocompromisedindividual), or other evidence exists to indicate HCVinfection.Performed at: [address] [id number] Director: Yuri Osullivan PhD, Phone: [phone] TestSee Mercy HospitalComment on above:See report. Scanned copy available in EMR.Whole Blood Yebl440 ug/oC854-216AqvomqaazDiley Ridge Medical CenterComment on above:This test was developed and its performance characteristicsdetermined by [employer]. It has not been cleared orapproved by the Food and Drug Administration.Performed at: [address] [id number] Director: Christine Pham MD, Phone: [phone] Panel InformationOrdered By: Tolu Salinas on 16-94-5450Xokpkcjaa GFR (CKD-EPI)> 60.0 mL/MinDiley Ridge Medical CenterPharmacy Creatinine Clearance (ChemN/AFCleveland Clinic South Pointe HospitalPotassium [Moles/volume] in Serum or PlasmaOrdered By: Tolu Salinas on 71-19-0546Pwiisfgji [Moles/Vol]4.5 mmol/L3.5-5.1FCleveland Clinic South Pointe HospitalProtein [Mass/volume] in Serum or PlasmaOrdered By: Tolu Salinas on 64-15-6260Drojxoe [Mass/Vol]6.9 g/dL6.4-8.9 Holzer Hospitalerum angiotensin converting enzyme (VITA) measurementOrdered By: Oz Kincaid on 20-94-0896Mmhzhvhgbaw converting enzyme [Catalytic activity/Vol]53 U/E72-91LydlzzezrDiley Ridge Medical CenterComment on above:Performed at: [address] [id number] Director: Yuri Osullivan PhD, Phone: [phone] cryoglobulin detection Ordered By: Oz Kincaid on 49-34-7680Wagygoyruzoo Ql (S)CommentNone detected [facility] CenterComment on above:None Detected at 72 hoursThis test was developed and its performance characteristicsdetermined by [employer]. It has not been cleared orapproved by the Food and Drug Administration.Performed at: [address] [id number] Director: Yuri Osullivan PhD, Phone: [phone] or plasma albumin/globulin mass ratioOrdered By: Tolu Salinas on 80-29-9152Hzengdw/Globulin [Mass ratio]1.6 {ratio}[facility] Hospitalerum or plasma anion gap determination Ordered By: Tolu Salinas on 07-67-6561Zgnxd gap [Moles/Vol]8.5 mmol/L6.0-15.0 [facility] Hospitalerum or plasma ceruloplasmin measurement (mass/volume)Ordered By: Oz Kincaid on 33-31-2970Hdcyndmhiukil [Mass/Vol]26.8 mg/dL19.0-39.0[facility] CenterComment on above:Performed at: [address] [id number] Director: Yuri Osullivan PhD, Phone: [phone] or plasma complement C3 measurement (mass/volume)Ordered By: Oz Kincaid on 37-05-9129Xmbkzzjfop C3 [Mass/Vol]147 mg/dL 82-167[facility] Medical CenterComment on above:Performed at: [facility] [place] [id number] Director: Yuri Osullivan PhD, Phone: [phone] or plasma complement C4 measurement (mass/volume)Ordered By: Oz Kincaid on 53-39-6246Tytdnwaqfs C4 [Mass/Vol]32 mg/dL 12-38Holzer Hospitalodium [Moles/volume] in Serum or Plasma Ordered By: Tolu Salinas on 84-32-8510Cbfdxb [Moles/Vol]139 mmol/K195-512 [facility] CenterThallium [Mass/volume] in Serum or Plasma Ordered By: Oz Kincaid on 18-99-2161Eqhplmvc [Mass/Vol]<1.0 ng/mL<5.0[facility] Medical CenterComment on above:Thallium concentrations greater than 300 ng/ml are consistent with acute toxicity. Urine is the preferred specimen for assessment of thallium exposure. Thallium analysis performed by inductively coupled plasma / mass spectrometry (ICP/MS).This test was developed and its performance characteristicsdetermined by [employer]. It has not been cleared or approvedby the Food and Drug Administration.Performed at: [facility] [address] [id number] Director: Whitney Arevalo [facility], Phone: [phone] nitrogen [Mass/volume] in Serum or Plasma Ordered By: Tolu Salinas on 01-46-6167Sxhr nitrogen [Mass/Vol]11 mg/dL7-25 [facility] CenterLACTATE AND PYRUVATEon 63-03-9293Skgeadfmjafeqc and review of laboratory resultsAbnormalNOMS HealthcareLACTIC ACID, QYTIHN10.1 mg/dLHigh4.8 - 25.7 mg/dLNOMS HealthcarePYRUVIC ACID, BLOOD0.7 mg/dL0.3 - 0.7 mg/dLNONH HealthcareComment on above:This test was developed and its performance characteristics determined by [employer]. It has not been cleared or approved by the Food and Drug Administration. Performed at: [address] [id number] Tour Consultant: Yuri Osullivan PhD, Phone: [phone] Performed at: [address] [id number] Tour Consultant: Christine Pham MD, Phone: [phone] NOMS HealthcareDNA double strand Ab [Units/volume] in SerumOrdered By: Oz Kincaid on 55-04-4994YGV double strand Ab Qn (S)1 [IU]/mL0-9[facility] CenterComment on above:Negative <5 Equivocal 5 - 9 Positive >9Myeloperoxidase Ab [Units/volume] in Serum by ImmunoassayOrdered By: Oz Kincaid on 11-26-2023 Myeloperoxidase Ab IA Qn (S)<0.2 units0.0-0.9[facility] CenterNo Panel InformationOrdered By: Oz Kincaid on 10-20-0303Stul-Nuclear Antibody Comment 2Comment.[facility] Medical CenterComment on above:Pattern Potential Disease Association Homogeneous Systemic Lupus Erythematosus, Drug Induced Systemic Lupus Erythematosus, Chronic Autoimmune hepatitis, Juvenile Idiopathic Arthritis Speckled Sjogren Syndrome, Systemic Lupus Erythematosus, Subacute Cutaneous Lupus, Lupus, Congenital Heart Block, Mixed Connective Tissue Disease, Scleroderma-diffuse, Scleroderma- Autoimmune Myositis Overlap Syndrome, Systemic Lupus Digjigwrijdpn-Hgvgrvuuayn-Ouidqwomqb Myositis Overlap Syndrome, Systemic Autoimmune Rheumatic Disease, [...] Cytopenias, Linear Scleroderma, Antiphospholipid Syndrome Performed at: [facility] [id number] Director: Yuri Osullivan PhD, Phone: [phone] p-ANCA<1:20 titerNeg:<1:20[facility] Medical CenterComment on above:The atypical pANCA pattern has been observed in asignificant percentage of patients with ulcerativecolitis,primary sclerosing cholangitis and autoimmune hepatitis.Performed at: [facility] [id number] Director: Christine Pham MD, Phone: [phone] at: [facility] [id number] Director: Yuri Osullivan PhD, Phone: [phone] ANCA (p-ANCA) Antibody<1:20 titerNeg:<1:20[facility] Comment on above:The presence of positive fluorescence exhibiting P-ANCA orC- ANCA patterns alone is not specific forthe diagnosis ofWegener's Granulomatosis (WG) or microscopic polyangiitis.Decisions about treatmentshould not be based solely onANCA IFA results. The International ANCA Group Consensusrecommends foll ow up testing of positive sera with both WV-3 and MPO-ANCA enzyme immunoassays. As many as 5% serumsamples are positive only by EIA. Ref. AM J Clin Ndexhe8610;111:507-513.Plasma Lactic Acid, Ufvsqv61.1 mg/dLHigh4.8-25.7FCleveland Clinic South Pointe HospitalPyruvic Acid0.7 mg/dL0.3-0.7FCleveland Clinic South Pointe HospitalComment on above:This test was developed and its performance characteristicsdetermined by [employer]. It has not been cleared orapproved by the Food and Drug Administration.Performed at: [address] [id number] Director: Yuri Osullivan PhD, Phone: [phone] at: [address] [id number] Director: Christine Pham MD, Phone: [phone] Antibody0.3 AI 0.0-0.9Holzer Hospitalcl-70 (Scleroderma) Antibody<0.2 AI 0.0-0.9Holzer Hospitalignal Recognition Particle (SRP) NegativeNegativeDiley Ridge Medical CenterComment on above:This test was developed and its performance characteristicsdetermined by [employer]. It has not been cleared orapproved by the Food and Drug Administration.Performed at: [facility] [address] [place], [place] [id number] Director: Juan Cruz MD, Phone: [phone] 3 Ab [Units/volume] in Serum by ImmunoassayOrdered By: Oz Kincaid on 72-82-6912Uhwtiebusw 3 Ab IA Qn (S)<0.2 units 0.0-0.9[facility] Medical CenterRibosomal P Ab [Units/volume] in Serum Ordered By: Oz Kincaid on 42-49-2297Rxrjmrhey P Ab Qn (S)<0.2 AI0.0-0.9[facility] Hospitalerum Sushma-1 extractable nuclear antibody assay (units/volume)Ordered By: Oz Kincaid on 58-04-9748Vg-1 extractable nuclear Ab Qn (S)<0.2 AI0.0-0.9[facility] Hospitalerum Sjogrens syndrome-A extractable nuclear antibody assay (units/volume)Ordered By: Oz Kincaid on 55-31-2856Timssbcu syndrome-A extractable nuclear Ab Qn (S)<0.2 AI0.0-0.9 [facility] Hospitalerum Sjogrens syndrome-B extractable nuclear antibody assay (units/volume)Ordered By: Oz Kincaid on 42-30-5374Dtccdkzd syndrome-B extractable nuclear Ab Qn (S)<0.2 AI0.0-0.9[facility] Hospitalerum Fritz extractable nuclear antigen (ARIELLE) antibody assay (units/volume)Ordered By: Oz Kincaid on 77-78-5284Ikabf extractable nuclear Ab Qn (S)<0.2 AI0.0-0.9[facility] Hospitalerum centromere protein B antibody assay (units/volume)Ordered By: Oz Kincaid on 81-49-9626Ahidwscgsw protein B Ab Qn (S)<0.2 AI0.0-0.9[facility] Medical CenterComment on above:Performed at: [facility] [id number] Director: Yuri Osullivan PhD, Phone: [phone] classic neutrophil cytoplasmic antibody titer by immunofluorescenceOrdered By: Oz Kincaid on 20-05-5655Fueispkybu cytoplasmic Ab.classic IF (S) [Titer]<1:20 titerNeg:<1:20 Hol[facility] Hospitalerum histone IgG antibody assay by immunoassay (units/volume)Ordered By: Oz Kincaid on 77-58-8525Rzdpbgx IgG IA Qn (S)0.6 Units 0.0-0.9[facility] Medical CenterComment on above:Negative <1.0 Weak Positive 1.0 - 1.5 Moderate Positive 1.6 - 2.5 Strong Positive >2.5Performed at: [facility] [id number] Director: Christine Scott, Phone: [phone] homogeneous pattern antinuclear antibody (PO) titerOrdered By: Oz Kincaid on 41-94-2232Olumcopkor nuclear Ab pattern (S) [Titer]N/AFCincinnati VA Medical Centererum mitochondria M2 IgG antibody assay (units/volume)Ordered By: Oz Kincaid on 14-83-1768Rrggrimaggst M2 IgG Qn (S)<20.0 Units0.0-20.0[facility] CenterComment on above: Negative 0.0 - 20.0 Equivocal 20.1 - 24.9 Positive >24.9Mitochondrial (M2) Antibodies are found in 90-96% ofpatients with primary biliary cirrhosis.Performed at: [facility] [facility] [id number] Director: Yuri Osullivan PhD, Phone: [phone] nuclear antibody titerOrdered By: Oz Kincaid on 67-87-5622Hjudjgs Ab (S) [Titer]Positive Abnormal.[facility] Medical CenterComment on above:Negative <1:80 Borderline 1:80 Positive >1:80Serum speckled pattern antinuclear antibody (PO) titerOrdered By: Oz Kincaid on 85-55-6590Tknhlett nuclear Ab pattern (S) [Titer] 1:320High.[facility] Medical CenterComment on above:ICAP nomenclature: AC-2,4,5,29Aspartate aminotransferase [Enzymatic activity/volume] in Serum or PlasmaOrdered By: Jonas Ch on 90-71-2432YFF [Catalytic activity/Vol]45 U/NDdum66-61RkyhtejrvDiley Ridge Medical CenterCalcium [Mass/volume] in Serum or PlasmaOrdered By: Jonas Ch on 62-42-0635Ejuaziu [Mass/Vol]10.7 mg/dLHigh 8.6-10.3FCleveland Clinic South Pointe HospitalCarbon dioxide, total [Moles/volume] in Serum or PlasmaOrdered By: Jonas Ch on 09-18-6542VE2 [Moles/Vol]27.7 mmol/L21.0-31.0[facility] Medical CenterChloride [Moles/volume] in Serum or PlasmaOrdered By: Jonas Ch on 36-87-6803Bwbapdad [Moles/Vol]102 mmol/M98-681BwkhwzfxkDiley Ridge Medical CenterCreatinine [Mass/volume] in Serum or PlasmaOrdered By: Jonas Ch on 30-82-1622Thtzxmytqg [Mass/Vol]1.02 mg/dL0.60-1.20[facility] CenterCreatinine [Mass/volume] in Urine Ordered By: Angelique Russell on 24-57-4825Wwwopzlfvt (U) [Mass/Vol]123.00 mg/dL [facility] CenterComment on above:No reference range established Glucose [Mass/volume] in Serum or PlasmaOrdered By: Jonas Ch on 35-90-8574Lrwixvf [Mass/Vol]158 mg/rVKlet07-384DcaphqufgDiley Ridge Medical Center Comment on above:ADA recommended reference rangeRandom Glucose Reference Range is dependent on time and content of last meal. Glucose of more than 200 mg/dL in a nonstressed, ambulatory subject supports the diagnosisof Diabetes Mellitus. Microalbumin [Mass/volume] in UrineOrdered By: Angelique Russell on 81-12-6212Cqwqrrs DL <= 20 mg/L (U) [Mass/Vol]3.0 mg/dLHigh0.0-1.8[facility] CenterNo Panel InformationOrdered By: Jonas Ch on 82-35-5082Bbbiypcis GFR (CKD-EPI)> 60.0 mL/MinDiley Ridge Medical CenterPharmacy Creatinine Clearance (ChemN/[facility] HospitalPotassium [Moles/volume] in Serum or PlasmaOrdered By: Jonas Ch on 52-24-6549Pubdkaomj [Moles/Vol]4.1 mmol/L3.5-5.1FCincinnati VA Medical Centererum or plasma anion gap determinationOrdered By: Jonas Ch on 29-15-9080Gppud gap [Moles/Vol]12.4 mmol/L6.0-15.0Holzer Hospitalodium [Moles/volume] in Serum or PlasmaOrdered By: Jonas Ch on 03-63-5899Cgooew [Moles/Vol]138 mmol/L 136-145Fire[facility] Regional Medical CenterThyrotropin [Units/volume] in Serum or PlasmaOrdered By: Jonas Ch on 64-50-7895GNR Qn3.39 m[IU]/L0.45-5.33 [facility] CenterUrea nitrogen [Mass/volume] in Serum or Plasma Ordered By: Jonas Ch on 55-95-7342Tdhr nitrogen [Mass/Vol]20 mg/dL7-25 [facility] CenterUrine microalbumin/creatinine mass ratioOrdered By: Angelique Russell on 84-67-2663Fxeiokn/Creatinine DL <= 20 mg/L (U) [Mass ratio] 24.4 mg/g0.0-30.0[facility] Medical CenterComment on above:30-300 mg/g indicates an increased risk for diabetic nephropathy. Greater than 300 mg/g is consistent with clinical nephropathy. (Am. J. Kidney Disease 1995, 25:107)No Panel Informationon 44-03-5979Lrlmmuq Ndmhwxf633TiyxfvnxfDiley Ridge Medical CenterECG [address] [place] 02-13-9830Nzyjib sinus rhythm Normal EKG QTc 457 [facility] Work Phone: basophils Auto (Bld) [#/Vol]Ordered By: Chaka Frye on 42-46-6679Qrazjhepo (Bld) [#/Vol]0.0 10*3/uL0.0-0.2FCleveland Clinic South Pointe HospitalBasophils/100 WBC Auto (Bld)Ordered By: Chaka Frye on 66-73-7165Gplswvtpg/100 WBC (Bld)0.5 %.[facility] Medical CenterCalcium [Mass/volume] in Serum or PlasmaOrdered By: Chaka Frye on 63-63-9791Ofwrtec [Mass/Vol]9.5 mg/dL8.6-10.3FC[facility] Hospital Carbon dioxide, total [Moles/volume] in Serum or PlasmaOrdered By: Chaka Frye on 34-65-6764AA2 [Moles/Vol]30.0 mmol/L21.0-31.0[facility] Medical CenterChloride [Moles/volume] in Serum or PlasmaOrdered By: Chaka Frye on 27-28-8756Gxoezkvp [Moles/Vol]103 mmol/Y52-457RubwyzrfxDiley Ridge Medical CenterCreatinine [Mass/volume] in Serum or PlasmaOrdered By: Chaka Frye on 06-75-1942Ndpiphrroo [Mass/Vol]0.98 mg/dL0.60-1.20[facility] Medical CenterEosinophils Auto (Bld) [#/Vol]Ordered By: Chaka Frye on 64-65-9594Ihyxvfuzquj (Bld) [#/Vol]0.4 10*3/uL0.0-0.45[facility] Medical CenterEosinophils/100 WBC Auto (Bld)Ordered By: Chaka Frye on 39-17-9576Smvgdadcqdm/100 WBC (Bld)5.2 %.[facility] Medical CenterErythrocyte distribution width Auto (RBC) [Ratio]Ordered By: Chaka Frye on 12-41-2494Chhmapsumri distribution width (RBC) [Ratio]14.0 % 11.9-15.3FCleveland Clinic South Pointe HospitalGlucose Glucometer (BldC) [Mass/Vol] Ordered By: Chaka Frye on 52-15-1493Hsqpwdo [Mass/Vol]137 mg/dL [facility] CenterComment on above:Random Glucose Reference Range is dependent on time and content of last meal. Glucose of more than 200 mg/dL in a nonstressed, ambulatory subject supports the diagnosis of Diabetes Mellitus.Glucose [Mass/volume] in Serum or PlasmaOrdered By: Chaka Frye on 60-51-4108Wteyeyl [Mass/Vol]102 mg/zCGdad30-165LxweqpdirDiley Ridge Medical CenterComment on above:ADA recommended reference rangeRandom Glucose Reference Range is dependent on time and content of last meal. Glucose of more than 200 mg/dL in a nonstressed, ambulatory subject supports the diagnosisof Diabetes Mellitus.Hematocrit Auto (Bld) [Volume fraction]Ordered By: Chaka Frye on 40-88-1974Itbdnkzxaj (Bld) [Volume fraction]44.6 %34.0-46.4FCleveland Clinic South Pointe HospitalHemoglobin [Mass/volume] in BloodOrdered By: Chaka Frye on 87-39-1129Ittcoqtctq (Bld) [Mass/Vol]14.6 g/dL11.8-15.4FCleveland Clinic South Pointe HospitalLeukocytes [#/volume] corrected for nucleated erythrocytes in Blood by Automated counOrdered By: Chaka Frye on 85-06-6408ROF corrected for nucl RBC Auto (Bld) [#/Vol]7.4 10*3/uL3.8-11.6FCleveland Clinic South Pointe HospitalLymphocytes Auto (Bld) [#/Vol]Ordered By: Chaka Frye on 32-44-5365Cslfjjooysd (Bld) [#/Vol]2.3 10*3/uL1.00-4.8[facility] Medical CenterLymphocytes/100 WBC Auto (Bld)Ordered By: Chaka Frye on 66-23-4608Qlqyakynneb/100 WBC (Bld)30.8 %.Grant HospitalH Auto (RBC) [Entitic mass]Ordered By: Chaka Frye on 21-79-2850XMB (RBC) [Entitic mass]32.2 pg24.7-34.3FCleveland Clinic South Pointe HospitalMCHC Auto (RBC) [Mass/Vol]Ordered By: Chaka Frye on 87-08-7039IKSL (RBC) [Mass/Vol]32.8 g/dL32.0-35.0[facility] Medical CenterMCV Auto (RBC) [Entitic vol] Ordered By: Chaka Frye on 23-86-0636KAF (RBC) [Entitic vol]98.1 fL 80-100[facility] CenterMagnesium [Mass/volume] in Serum or PlasmaOrdered By: Chaka Frye on 09-08-1799Wgzvmtzlu [Mass/Vol]1.9 mg/dL 1.9-2.7FCleveland Clinic South Pointe HospitalMonocytes Auto (Bld) [#/Vol]Ordered By: Chaka Frye on 34-68-2956Cmtekwswf (Bld) [#/Vol]0.8 10*3/uL0.0-0.8 [facility] CenterMonocytes/100 WBC Auto (Bld)Ordered By: Chaka Frye on 15-53-7441Fefaqmmaa/100 WBC (Bld)11.0 %.[facility] Medical CenterNeutrophils Auto (Bld) [#/Vol]Ordered By: Chaka Frye on 89-16-6435Ancqjoqinom (Bld) [#/Vol]3.9 10*3/uL1.8-7.7FCleveland Clinic South Pointe HospitalNeutrophils/100 WBC Auto (Bld)Ordered By: Chaka Frye on 35-32-5833Pvxvrnnbpsp/100 WBC (Bld)52.5 %.[facility] CenterNo Panel InformationOrdered By: Chaka Frye on 11-12-2023 Estimated GFR (CKD-EPI)> 60.0 mL/MinDiley Ridge Medical CenterPharmacy Creatinine Clearance (Chem63.39[facility] Medical CenterNucleated erythrocytes [Presence] in Blood by Automated countOrdered By: Chaka Frye on 34-07-2231Rxcxkjbuz RBC Auto Ql (Bld)0.1 /100{WBC}0-0.5FCleveland Clinic South Pointe HospitalPlatelet mean volume Auto (Bld) [Entitic vol]Ordered By: Chaka Frye on 03-30-7903Xleiqdie mean volume (Bld) [Entitic vol]9.1 fL 6.3-10.7FCleveland Clinic South Pointe HospitalPlatelets Auto (Bld) [#/Vol]Ordered By: Chaka Frye on 40-36-2883Lxzonphja (Bld) [#/Vol]155 10*3/mV165-421 [facility] CenterPotassium [Moles/volume] in Serum or Plasma Ordered By: Chaka Frye on 10-23-3236Gklzzoehb [Moles/Vol]4.4 mmol/L 3.5-5.1FCleveland Clinic South Pointe HospitalRBC Auto (Bld) [#/Vol]Ordered By: Chaka Frye on 57-45-6059DJP (Bld) [#/Vol]4.54 10*6/uL3.60-5.00Hol[facility] Hospitalerum or plasma anion gap determinationOrdered By: Chaka Frye on 75-58-2635Jarku gap [Moles/Vol]10.4 mmol/L6.0-15.0 Hol[facility] Hospitalodium [Moles/volume] in Serum or PlasmaOrdered By: Chaka Frye on 01-98-2424Tylmnj [Moles/Vol]139 mmol/H060-010 [facility] CenterUrea nitrogen [Mass/volume] in Serum or Plasma Ordered By: Chaka Frye on 71-18-6861Oszp nitrogen [Mass/Vol]18 mg/dL 7-25D[facility] Medical CenterWBC Auto (Bld) [#/Vol]Ordered By: Chaka Frye on 32-48-9190FSF (Bld) [#/Vol]7.4 10*3/uL3.8-11.6FCleveland Clinic South Pointe HospitalGlucose mean value [Mass/volume] in Blood Estimated from glycated hemoglobinOrdered By: Jluis Campos on 71-29-7273Safgcgh glucose Estimated from glycated hemoglobin (Bld) [Mass/Vol]143 mg/dLDiley Ridge Medical Center Hemoglobin A1c percentageOrdered By: Jluis Campos on 76-95-9788UpU0p (Bld) [Mass fraction]6.6 %High4.3-5.6FCleveland Clinic South Pointe HospitalComment on above: Increased risk for diabetes: 5.7 - 6.4diabetes: >6.4glycemic control for adults with diabetes: <7.0LACTATE AND PYRUVATEon 69-08-8614OVJNCY ACID, PLASMA.NOMS HealthcareComment on above:Test not performed. Supernatant is required. CONTACTED YOUR FACILity on 11-05-2023 PYRUVIC ACID, BLOOD.NOMS HealthcareComment on above:Test not performedNONH HealthcareNo Panel InformationOrdered By: Kirt Renae on 11-89-4511PZE Antibody 0.2 AI0.0-0.9Hol[facility] Hospitalerum Sushma-1 extractable nuclear antibody assay (units/volume)Ordered By: Kirt Renae on 13-82-2899Gc-1 extractable nuclear Ab Qn (S)<0.2 AI0.0-0.9[facility] Comment on above:Performed at: [facility] [employer] [id number] Director: Yuri Osullivan PhD, Phone: [phone] Sjogrens syndrome-A extractable nuclear antibody assay (units/volume)Ordered By: Kirt Renae on 92-78-0016Qlvotdqu syndrome-A extractable nuclear Ab Qn (S)<0.2 AI 0.0-0.9Holzer Hospitalerum Sjogrens syndrome-B extractable nuclear antibody assay (units/volume)Ordered By: Kirt Renae on 11-11-2023 Sjogrens syndrome-B extractable nuclear Ab Qn (S)<0.2 AI0.0-0.9Holzer Hospitalerum or plasma thyroglobulin antibody assay (units/volume)Ordered By: Kirt Renae on 88-95-8607Uhajrovexlenh Ab Qn[IU]/mL 0.0-0.9[facility] CenterComment on above:Thyroglobulin Antibody measured by Mami CoulterMethodologyIt should be noted that the presence of thyroglobulinantibodies may not be pathogenic nor diagnostic, especiallyat very low levels. The assay sharepoint application architect has found thatfour percent of individuals without evidence of thyroiddisease or autoimmunity will have positive TgAb levels upto 4 IU/mL.Performed at: [facility] [id number] [place], [place] [id number] Director: Yuri Osullivan PhD, Phone: [phone] or plasma thyroperoxidase antibody assay (units/volume)Ordered By: Kirt Renae on 13-21-4885GNI Ab Qn[IU]/mL0-34[facility] Medical CenterThyroxine (T4) free [Mass/volume] in Serum or PlasmaOrdered By: Kirt Renae on 86-70-5930Xxqq T4 [Mass/Vol]0.83 ng/dL0.61-1.12[facility] Triiodothyronine (T3) Free [Mass/volume] in Serum or PlasmaOrdered By: Kirt Renae on 82-55-7176Glzx T3 [Mass/Vol]2.60 pg/mL2.50-3.90D[facility] Medical CenterAlanine aminotransferase [Enzymatic activity/volume] in Serum or PlasmaOrdered By: Rl Villavicencio on 55-59-3354VAI [Catalytic activity/Vol]19 U/L 7-52[facility] CenterAlbumin [Mass/volume] in Serum or Plasma by Bromocresol green (BCG) dye binding methoOrdered By: Rl Villavicencio on 11-10-2023 Albumin BCG dye [Mass/Vol]4.2 g/dL3.5-5.7FC[facility] Alkaline phosphatase [Enzymatic activity/volume] in Serum or PlasmaOrdered By: Rl Villavicencio on 34-53-3719BDD [Catalytic activity/Vol]60 U/B12-516KumfhpuqtDiley Ridge Medical CenterAspartate aminotransferase [Enzymatic activity/volume] in Serum or PlasmaOrdered By: Rl Villavicencio on 17-73-1817ITH [Catalytic activity/Vol]29 U/A36-49HiysxbytuDiley Ridge Medical CenterBacteria [Presence] in Urine by AutomatedOrdered By: Rl Villavicencio on 88-04-5282Txsfruqo Auto Ql (U)1+ [HPF]HighNone SeenDiley Ridge Medical CenterBasophils Auto (Bld) [#/Vol] Ordered By: Rl Villavicencio on 90-68-1453Mrzrlnrfd (Bld) [#/Vol]0.1 10*3/uL0.0-0.2 [facility] CenterBasophils/100 WBC Auto (Bld)Ordered By: Rl Villavicencio on 30-30-7245Kvnimxlko/100 WBC (Bld)0.9 %.[facility] CenterBilirubin Test strip Ql (U)Ordered By: Rl Villavicencio on 83-34-6910Rwcuuctog Ql (U)NegativeNegativeDiley Ridge Medical CenterBilirubin.total [Mass/volume] in Serum or PlasmaOrdered By: Rl Villavicencio on 73-47-2039Gfpswtbxm [Mass/Vol]0.4 mg/dL0.3-1.0[facility] CenterC reactive protein [Mass/volume] in Serum or PlasmaOrdered By: Kirt Renae on 31-19-3274EOG [Mass/Vol]< 0.5 mg/dL0.0-0.5FCleveland Clinic South Pointe HospitalCalcium [Mass/volume] in Serum or PlasmaOrdered By: Rl Villavicencio on 68-22-3220Voxzdta [Mass/Vol]9.6 mg/dL8.6-10.3FCleveland Clinic South Pointe HospitalCarbon dioxide, total [Moles/volume] in Serum or PlasmaOrdered By: Rl Villavicencio on 39-10-2560UM6 [Moles/Vol]25.4 mmol/L21.0-31.0[facility] CenterChloride [Moles/volume] in Serum or PlasmaOrdered By: Rl Villavicencio on 14-89-9573Ljdrbbgp [Moles/Vol]105 mmol/E31-156CnnzauqqjDiley Ridge Medical CenterColor Auto (U) Ordered By: Rl Villavicencio on 66-02-0772Otomb (U)Light-yellowYellowDiley Ridge Medical CenterCreatine kinase [Enzymatic activity/volume] in Serum or PlasmaOrdered By: Rl Villavicencio on 45-47-3067ZX [Catalytic activity/Vol]69 U/L 30-223D[facility] Medical CenterCreatinine [Mass/volume] in Serum or PlasmaOrdered By: Rl Villavicencio on 51-21-6315Vgrnydtqrq [Mass/Vol]0.93 mg/dL 0.60-1.20[facility] CenterEosinophils Auto (Bld) [#/Vol]Ordered By: Rl Villavicencio on 02-71-5862Vpjcswcfqpd (Bld) [#/Vol]0.3 10*3/uL0.0-0.45 [facility] CenterEosinophils/100 WBC Auto (Bld)Ordered By: Rl Villavicencio on 07-70-6722Niseimnbrzz/100 WBC (Bld)3.7 %.[facility] CenterEpithelial cells.squamous [#/area] in Urine sediment by Automated countOrdered By: Rl Villavicencio on 03-12-3402Jpoalrzqkk cells.squamous Auto (Urine sed) [#/Area]5-9 [HPF]High0-2FCleveland Clinic South Pointe HospitalErythrocyte distribution width Auto (RBC) [Ratio]Ordered By: Rl Villavicencio on 11-10-2023 Erythrocyte distribution width (RBC) [Ratio]13.5 %11.9-15.3FCleveland Clinic South Pointe HospitalErythrocyte sedimentation rate by Photometric methodOrdered By: Kirt Renae on 01-85-9489WUA Photometric method (Bld) [Velocity]40 mm/hrHigh 0-29D[facility] Medical CenterErythrocytes [#/area] in Urine sediment by Automated countOrdered By: Rl Villavicencio on 64-85-1504DXX Auto (Urine sed) [#/Area]5-9 [HPF]High0-4FCleveland Clinic South Pointe HospitalFolate [Mass/volume] in Serum or PlasmaOrdered By: Kirt Renae on 09-47-4237Czwzko [Mass/Vol]19.6 ng/mL>5.9[facility] CenterComment on above:Folate reference range: >5.9 ng/mlThe WHO technical consultation on folate and vitamin e81zshaduy ncies has determined that folate concentrations lessthan 4 ng/ml are considered deficient.Globulin Calc (S) [Mass/Vol]Ordered By: Rl Villavicencio on 11-10-2023 Globulin (S) [Mass/Vol]2.9 g/dLDiley Ridge Medical CenterGlucose [Mass/volume] in Serum or PlasmaOrdered By: Rl Villavicencio on 01-49-3153Giwnofy [Mass/Vol]95 mg/hF75-935LchkyckksDiley Ridge Medical CenterComment on above:ADA recommended reference rangeRandom Glucose Reference Range is dependent on time and content of last meal. Glucose of more than 200 mg/dL in a nonstressed, ambulatory subject supports the diagnosisof Diabetes Mellitus.Glucose [Mass/volume] in Urine by Test stripOrdered By: Rl Villavicencio on 11-10-2023 Glucose Test strip (U) [Mass/Vol]1000 mg/dLHighNormalDiley Ridge Medical CenterHematocrit Auto (Bld) [Volume fraction]Ordered By: Rl Villavicencio on 85-52-1643Mzqkmxiyga (Bld) [Volume fraction]44.9 %34.0-46.4FCleveland Clinic South Pointe HospitalHemoglobin Test strip Ql (U)Ordered By: Rl Villavicencio on 11-10-2023 Hemoglobin Ql (U)NegativeNegativeDiley Ridge Medical CenterHemoglobin [Mass/volume] in BloodOrdered By: Rl Villavicencio on 63-98-9490Rzpaezfmel (Bld) [Mass/Vol]15.0 g/dL11.8-15.4FCleveland Clinic South Pointe HospitalHyaline casts [#/area] in Urine sediment by Automated countOrdered By: Rl Villavicencio on 84-29-2036Okfyqbh casts Auto (Urine sed) [#/Area]None [LPF]0-8[facility] CenterKetones Test strip Ql (U)Ordered By: Rl Villavicencio on 11-10-2023 Ketones Ql (U)NegativeNegMiami Valley HospitalLeukocyte clumps [Presence] in Urine by AutomatedOrdered By: Rl Villavicencio on 58-72-2990Rlgyycvpv clumps Auto Ql (U)Occasional [LPF]HighNone SeenDiley Ridge Medical Center Leukocyte esterase [Presence] in Urine by Test stripOrdered By: Rl Villavicencio on 46-03-5477Xzujvsriy esterase Test strip Ql (U)4+HighNegMiami Valley HospitalLeukocytes [#/area] in Urine sediment by Automated countOrdered By: Rl Villavicencio on 13-05-8638JOD Auto (Urine sed) [#/Area]20-49 [HPF]High0-4 [facility] CenterLeukocytes [#/volume] corrected for nucleated erythrocytes in Blood by Automated counOrdered By: Rl Villavicencio on 48-10-6549BPV corrected for nucl RBC Auto (Bld) [#/Vol]8.5 10*3/uL3.8-11.6FCleveland Clinic South Pointe HospitalLymphocytes Auto (Bld) [#/Vol]Ordered By: Rl Villavicencio on 72-03-4538Cyuhoxwuxhx (Bld) [#/Vol]2.2 10*3/uL1.00-4.8[facility] Medical CenterLymphocytes/100 WBC Auto (Bld)Ordered By: Rl Villavicencio on 11-10-2023 Lymphocytes/100 WBC (Bld)26.0 %.[facility] Medical CenterMCH Auto (RBC) [Entitic mass]Ordered By: Rl Villavicencio on 28-21-2699BFA (RBC) [Entitic mass]32.6 pg24.7-34.3FCleveland Clinic South Pointe HospitalMCHC Auto (RBC) [Mass/Vol]Ordered By: Rl Villavicencio on 07-32-6298KDGX (RBC) [Mass/Vol]33.3 g/dL32.0-35.0D[facility] CenterMCV Auto (RBC) [Entitic vol]Ordered By: Rl Villavicencio on 05-55-8885ZCP (RBC) [Entitic vol]97.8 qI14-589EzemiiyykDiley Ridge Medical Center Magnesium [Mass/volume] in Serum or PlasmaOrdered By: Rl Villavicencio on 11-10-2023 Magnesium [Mass/Vol]1.7 mg/dLLow1.9-2.7FCleveland Clinic South Pointe HospitalMonocyte distribution width [Entitic volume] in Blood by AutomatedOrdered By: Rl Villavicencio on 70-07-8164Ysmjbyon distribution width Auto (Bld) [Entitic vol]19.74 % 0.00-20.00[facility] CenterMonocytes Auto (Bld) [#/Vol]Ordered By: Rl Villavicencio on 66-68-1938Yrkizpolz (Bld) [#/Vol]0.7 10*3/uL0.0-0.8[facility] CenterMonocytes/100 WBC Auto (Bld)Ordered By: Rl Villavicencio on 48-42-7323Rsnvrybgd/100 WBC (Bld)8.2 %.[facility] Neutrophils Auto (Bld) [#/Vol]Ordered By: Rl Villavicencio on 63-17-8901Imrcumujwzb (Bld) [#/Vol]5.2 10*3/uL1.8-7.7FCleveland Clinic South Pointe HospitalNeutrophils/100 WBC Auto (Bld)Ordered By: Rl Villavicencio on 21-07-6267Mvehpokrbon/100 WBC (Bld) 61.2 %.[facility] Medical CenterNitrite Test strip Ql (U)Ordered By: Rl Villavicencio on 41-58-0605Uqcsmqp Ql (U)NegativeNegativeDiley Ridge Medical CenterNo Panel InformationOrdered By: Kirt Renae on 90-43-9322Sjcoaxm Glucose CommentGlu2: cleaned meterDiley Ridge Medical CenterNo Panel InformationOrdered By: Rl Villavicencio on 61-36-0462Zhjqzsrri GFR (CKD-EPI)> 60.0 mL/MinDiley Ridge Medical CenterPharmacy Creatinine Clearance (Chem66.28 [facility] CenterNucleated erythrocytes [Presence] in Blood by Automated countOrdered By: Rl Villavicencio on 39-64-8510Kauhoegwx RBC Auto Ql (Bld) 0.1 /100{WBC}0-0.5FCleveland Clinic South Pointe HospitalPlatelet mean volume Auto (Bld) [Entitic vol]Ordered By: Rl Villavicencio on 43-00-9509Xzifjjme mean volume (Bld) [Entitic vol]8.7 fL6.3-10.7FCleveland Clinic South Pointe HospitalPlatelets Auto (Bld) [#/Vol]Ordered By: Rl Villavicencio on 59-30-2929Jklylxqax (Bld) [#/Vol]149 10*3/vRRdx429-087QegsslkcuDiley Ridge Medical CenterPotassium [Moles/volume] in Serum or PlasmaOrdered By: Rl Villavicencio on 39-69-2616Rniuyadnl [Moles/Vol]4.6 mmol/L3.5-5.1FCleveland Clinic South Pointe HospitalComment on above:Hemolysis is present at a level that could interfere with the result.Contact lab if redraw is requiredProtein Test strip (U) [Mass/Vol]Ordered By: Rl Villavicencio on 11-10-2023 Protein (U) [Mass/Vol]NegativeNegMiami Valley HospitalProtein [Mass/volume] in Serum or PlasmaOrdered By: Rl Villavicencio on 73-09-4457Venlnxu [Mass/Vol]7.1 g/dL6.4-8.9[facility] Medical CenterRBC Auto (Bld) [#/Vol] Ordered By: Rl Villavicencio on 31-06-4367KDO (Bld) [#/Vol]4.59 10*6/uL3.60-5.00 [facility] Hospitalerum or plasma albumin/globulin mass ratio Ordered By: Rl Villavicencio on 11-19-0279Kjgasym/Globulin [Mass ratio]1.4 {ratio} [facility] Hospitalerum or plasma anion gap determinationOrdered By: Rl Villavicencio on 49-49-4963Fbkpb gap [Moles/Vol]11.2 mmol/L6.0-15.0Hol[facility] Hospitalodium [Moles/volume] in Serum or PlasmaOrdered By: Rl Villavicencio on 82-79-4245Koemuy [Moles/Vol]137 mmol/R648-576XfolvdvjeHolzer Hospitalpecific gravity Test strip (U) [Rel density]Ordered By: Rl Villavicencio on 38-78-0266Tgzootvc gravity (U) [Rel density]1.0071.001-1.030D[facility] Medical CenterThyrotropin [Units/volume] in Serum or PlasmaOrdered By: Jluis Campos on 75-06-8849KYB Qn5.73 m[IU]/LHigh0.45-5.33[facility] CenterUrea nitrogen [Mass/volume] in Serum or PlasmaOrdered By: Rl Villavicencio on 36-62-2219Dcwl nitrogen [Mass/Vol]14 mg/dL7-25[facility] Medical CenterUrine appearanceOrdered By: Rl Villavicencio on 81-71-0847Wundmilbjw (U)Clear ClearDiley Ridge Medical CenterUrine culture routineOrdered By: Rl Villavicencio on 84-01-3554Wzyfwxrg identified Cx Nom (U)2 DaysDiley Ridge Medical CenterUrobilinogen Test strip (U) [Mass/Vol]Ordered By: Rl Villavicencio on 98-54-7410Kswcraqfeniz (U) [Mass/Vol]Normal mg/dLNormalDiley Ridge Medical CenterVitamin B12 ser/plasOrdered By: Kirt Renae on 11-10-2023 Cobalamin (Vitamin B12) [Mass/Vol]306 pg/qA088-130KwpfkjyrzDiley Ridge Medical CenterVitamin D+Metabolites [Mass/volume] in Serum or PlasmaOrdered By: Jluis Campos on 60-95-1171Gwyxaho D+Metabolites [Mass/Vol]61.3 ng/aB59-110RgxkhblixDiley Ridge Medical CenterComment on above:Hemolysis is present at a level that could interfere with the result.Contact lab if redraw is requiredVITAMIN D STATUS 25(OH)VITAMIN D RANGE (ng/mL) Deficient <20 Insufficient 20 to <30Sufficient 30 to 100Reference: Sandra MF,Felisha NC, Leon SHERWOOD, et al. Evaluation,treatment, and prevention of vitamin D deficiency; an Endocrine Society clinical practice guideline. JCEM. 2010;96(7):1911-30.WBC Auto (Bld) [#/Vol]Ordered By: Rl Villavicencio on 49-84-8898HHZ (Bld) [#/Vol]8.5 10*3/uL 3.8-11.6FCleveland Clinic South Pointe HospitalpH Test strip (U)Ordered By: Rl Villavicencio on 41-86-4214xF (U)6.0 [pH]5.0-9.0[facility] CenterGlucose Glucometer (BldC) [Mass/Vol]Ordered By: OSORIO WHITE on 22-67-0790Owtmyas [Mass/Vol]139 mg/dLDiley Ridge Medical CenterComment on above:Random Glucose Reference Range is dependent on time and content of last meal. Glucose of more than 200 mg/dL in a nonstressed, ambulatory subject supports the diagnosis of Diabetes Mellitus.Carbon dioxide, total [Moles/volume] in Serum or PlasmaOrdered By: Jonas Ch on 81-54-5322QO0 [Moles/Vol]28.6 mmol/L 21.0-31.0[facility] CenterChloride [Moles/volume] in Serum or PlasmaOrdered By: Jonas Ch on 93-35-1843Rxwpnkwf [Moles/Vol]104 mmol/L 98-107D[facility] Medical CenterPotassium [Moles/volume] in Serum or PlasmaOrdered By: Jonas Ch on 23-97-3362Aulopropa [Moles/Vol]4.6 mmol/L 3.5-5.1FCincinnati VA Medical Centererum or plasma anion gap determination Ordered By: Jonas Ch on 57-38-2492Roszr gap [Moles/Vol]11.0 mmol/L 6.0-15.0[facility] Hospitalodium [Moles/volume] in Serum or PlasmaOrdered By: Jonas Ch on 63-47-1324Glooir [Moles/Vol]139 mmol/L 136-145D[facility] Medical CenterAlanine aminotransferase [Enzymatic activity/volume] in Serum or PlasmaOrdered By: Oz Kincaid on 32-82-3901ZUK [Catalytic activity/Vol]23 U/L7-52D[facility] CenterAlbumin [Mass/volume] in Serum or PlasmaOrdered By: Oz Kincaid on 70-80-8269Whzsiac [Mass/Vol]4.2 g/dL2.9-4.4FCleveland Clinic South Pointe HospitalAlbumin/Protein.total in 24 hour Urine by ElectrophoresisOrdered By: Oz Kincaid on 85-30-2875Mgjoupz Elph (24H U) [Mass fraction]35.7 %.[facility] Medical CenterAlpha tocopherol [Mass/volume] in Serum or PlasmaOrdered By: Oz Kincaid on 10-30-2023 Alpha tocopherol [Mass/Vol]8.7 mg/LLow9.0-29.0[facility] Comment on above:This test was developed and its performance characteristicsdetermined by [employer]. It has not been cleared orapproved by the Food and Drug Administration.Aspartate aminotransferase [Enzymatic activity/volume] in Serum or PlasmaOrdered By: Oz Kincaid on 85-04-0643LML [Catalytic activity/Vol]26 U/S01-85SdmwqtvogDiley Ridge Medical CenterBorrelia burgdorferi Ab [Interpretation] in SerumOrdered By: Oz Kincaid on 10-30-2023. burgdorferi Ab (S) [Interp]NSt. Rita's HospitalBorrelia burgdorferi IgG Ab [Presence] in Serum or Plasma by ImmunoassayOrdered By: Oz Kincaid on 10-30-2023. burgdorferi IgG IA QlN/[facility] Borrelia burgdorferi IgG+IgM Ab [Presence] in Serum by ImmunoassayOrdered By: Oz Kincaid on 10-30-2023. burgdorferi IgG+IgM IA Ql (S)NegativeNegativeDiley Ridge Medical CenterComment on above:Lyme antibodies not detected. Reflex testing is notindicated.No laboratory evidence of infection with B. burgdorferi(Lyme disease). Negative results may occur in patientsrecently infected (less than or equal to 14 days) with B.burgdorferi. If recent infection is suspected, repeattesting on a new sample collected in 7 to 14 days isrecommended.Performed at: [address] [id number] Director: Yuri Osullivan PhD, Phone: [phone] antibodies not detected. Reflex testing is notindicated.No laboratory evidence of infection with B. burgdorferi(Lyme disease). Negative results may occur in patientsrecently infected (less than or equal to 14 days) with B.burgdorferi. If recent infection is suspected, repeattesting on a new sample collected in 7 to 14 days isrecommended.Performed at: [address] [id number] Director: Yuri Osullivan PhD, Phone: [phone] Lyme antibodies not detected.Reflex testing is notindicated.No [...] collected in7 to 14 days isrecommended.Performed at: [address] [id number] Director: Yuri Osullivan PhD, Phone: [phone] burgdorferi IgM Ab [Presence] in Serum or Plasma by ImmunoassayOrdered By: Oz Kincaid on 10-30-2023. burgdorferi IgM IA QlN/A [facility] CenterC reactive protein [Mass/volume] in Serum or Plasma by High sensitivity methodOrdered By: Oz Kincaid on 17-02-6408UKT High sensitivity method [Mass/Vol]2.2 mg/LHigh0.0-0.9[facility] CenterComment on above:Cardiovascular Risk Classification (AHA/CDC)hsCRP < 1.0 [...] CVD risk.CT biopsyOrdered By: Oz Kincaid on 29-35-2959LI biopsy5.0 U/L3.3-10.3FC[facility] Comment on above:Performed at: [facility] FlippsJason [place]ille [id number] Director: Yuri Osullivan PhD, Phone: [phone] kinase [Enzymatic activity/volume] in Serum or PlasmaOrdered By: Oz Kincaid on 10-30-2023 CK [Catalytic activity/Vol]46 U/K03-580IoeehqfumDiley Ridge Medical Center Erythrocyte sedimentation rate by Photometric methodOrdered By: Oz Kincaid on 13-93-0796IGM Photometric method (Bld) [Velocity]26 mm/hr0-29D[facility] Medical CenterFolate [Mass/volume] in Serum or PlasmaOrdered By: Oz Kincaid on 93-37-6890Pmseau [Mass/Vol]34.0 ng/mL>5.9[facility] Comment on above:Folate reference range: >5.9 ng/mlThe WHO technical consultation on folate and vitamin m25emamaipqeraq has determined that folate concentrations lessthan 4 ng/ml are considered deficient.Gamma globulin/Protein.total in 24 hour Urine by ElectrophoresisOrdered By: Oz Kincaid on 59-07-1035Utoac globulin Elph (24H U) [Mass fraction]23.2 %.[facility] Medical CenterGamma-tocopherol measurement (mass/volume)Ordered By: Oz Kincaid on 39-70-0959Oledz tocopherol [Mass/Vol]0.7 mg/L0.5-4.9[facility] CenterComment on above:This test was developed and its performance characteristicsdetermined by [employer]. It has not been cleared orapproved by the Food and Drug Administration.Reference intervals for alpha and gamma-tocopheroldetermined from National Health and Nutrition ExaminationSurvey, 7776-3727. Individuals with alpha-tocopherol levelsless than 5.0 mg/L are considered vitamin E deficient.Glucose mean value [Mass/volume] in Blood Estimated from glycated hemoglobinOrdered By: Oz Kincaid on 10-30-2023 Average glucose Estimated from glycated hemoglobin (Bld) [Mass/Vol]143 mg/dL [facility] CenterHemoglobin A1c percentageOrdered By: Oz Kincaid on 53-38-7847DrD9d (Bld) [Mass fraction]6.6 %High4.3-5.6FCleveland Clinic South Pointe HospitalComment on above:Increased risk for diabetes: 5.7 - 6.4diabetes: >6.4glycemic control for adults with diabetes: <7.0IgA [Mass/volume] in Serum or PlasmaOrdered By: Oz Kincaid on 38-18-1151CuT [Mass/Vol]265 mg/hT95-386 [facility] CenterIgG [Mass/volume] in Serum or PlasmaOrdered By: Oz Kincaid on 46-94-7894TlR [Mass/Vol]1034 mg/bM324-0285LaezuxtocDiley Ridge Medical CenterIgM [Mass/volume] in Serum or PlasmaOrdered By: Oz Kincaid on 94-11-1687RwX [Mass/Vol]48 mg/rZ16-330RnmtmogyoDiley Ridge Medical CenterComment on above:Performed at: [facility] [id number] Director: Yuri Osullivan PhD, Phone: [phone] for UrineOrdered By: Oz Kincaid on 72-76-0988Brpjingxsfshox Immunofixation (U) [Interp]See comment.[facility] CenterComment on above:No monoclonality detected.Performed at: [facility] [id number] Director: Yuri Osullivan PhD, Phone: [phone] Panel InformationOrdered By: Oz Kincaid on 11-32-3502Gkqy-Nuclear Antibody Comment 2See comment.[facility] CenterComment on above:Pattern Potential Disease Association Homogeneous Systemic Lupus Erythematosus, Drug Induced Systemic Lupus Erythematosus, Chronic Autoimmune hepatitis, Juvenile Idiopathic Arthritis Speckled Sjogren Syndrome, Systemic Lupus Erythematosus, Subacute Cutaneous Lupus, Lupus, Congenital Heart Block, Mixed Connective Tissue Disease, Scleroderma-diffuse, Scleroderma- Autoimmune Myositis Overlap Syndrome, Systemic Lupus Geftrcoynaywd-Afubfjmexuz-Qlkmarrgwq Myositis Overlap Syndrome, Systemic Autoimmune Rheumatic Disease, [...] Linear Scleroderma, Antiphospholipid Syndrome Performed at: - [facility] [address] [id number] Director: Christine Pham MD, Phone: [phone] at: [email or web address] [place] [id number] [place], [place] [id number] Director: Yuri Osullivan PhD, Phone: [phone] Potential Disease Association Homogeneous Systemic Lupus Erythematosus, Drug Induced Systemic Lupus Erythematosus, Chronic Autoimmune hepatitis, Juvenile Idiopathic Arthritis Speckled Sjogren Syndrome, Systemic Lupus Erythematosus, Subacute Cutaneous Lupus, Lupus, Congenital Heart Block, Mixed Connective Tissue Disease, Scleroderma-diffuse, Scleroderma- Autoimmune Myositis Overlap Syndrome, Systemic Lupus Ziejjgqcexnem-Bmekyirjjpu-Wekbkbmwjn Myositis Overlap Syndrome, Systemic Autoimmune Rheumatic Disease, [...] Cytopenias, Linear Scleroderma, Antiphospholipid Syndrome Performed at: [address] [id number] Director: Christine Pham MD, Phone: [phone] at: [facility] [id number] Director: Yuri Osullivan PhD, Phone: [phone] Pattern Potential Disease Association Homogeneous Systemic Lupus Erythematosus, Drug Induced Systemic Lupus Erythematosus, Chronic Autoimmune hepatitis, Juvenile Idiopathic Arthritis Speckled Sjogren Syndrome, Systemic Lupus Erythematosus, Subacute Cutaneous Lupus, Lupus, Congenital Heart Block, Mixed ConnectiveTissue Disease, Scleroderma-diffuse, Scleroderma- Autoimmune Myositis Overlap Syndrome, Systemic Lupus Feoyzyqhytyql-Nitvqhczuij-Sewgpkhmun Myositis Overlap Syndrome, Systemic Autoimmune Rheumatic Disease, Undifferentiated Connective Tissue Disease Nucleolar Systemic Sclerosis, Scleroderma-Autoimmune Myositis Overlap Syndrome, Sjogren Syndrome, Raynaud phenomenon, Pulmonary Arterial Hypertension, Systemic Autoimmune Rheumatic Disease, Cancer Centromere Scleroderma-CREST, Limited Cutaneous SSc, Raynaud's Phenomenon, Primary Biliary Cholangitis Nuclear Dot Primary Biliary Cholangitis Nuclear Primary Biliary Cholangitis, AutoimmuneMembrane Hepatitis/Liver disease, Systemic Autoimmune Rheumatic Disease, Autoimmune Cytopenias, Linear Scleroderma, AntiphospholipidSyndrome Performed at: [address] [id number] Director: Yuri Osullivan PhD, Phone: [phone] at: [facility] [address] [place], [place] [id number] Director: Christine Scott, Phone: [phone] --- 11/06/23 1236 ---PO ELLIS Note 1 previously reported as: Pattern PotentialDisease Association Homogeneous Systemic Lupus Erythematosus, Drug Induced Systemic Lupus Erythematosus, Chronic Autoimmune hepatitis, Juvenile Idiopathic Arthritis Speckled Sjogren Syndrome, Systemic Lupus Erythematosus, Subacute Cutaneous Lupus, Lupus, Congenital Heart Block, Mixed Connective Tissue Disease, Scleroderma-diffuse, Scleroderma- Autoimmune Myositis Overlap Syndrome, Systemic Lupus Yercvrlwblema-Ewaxfbohcjr-Uwzofiglpz Myositis Overlap Syndrome, Systemic Auto immune Rheumatic [...] Linear Scleroder (more content not included)... Lactate/Pyruvate InterpretationN/[facility] HospitalPlasma Lactic Acid, VenousSee comment.[facility] CenterComment on above:Test not performed. Supernatant is required.CONTACTED YOUR FACILity on 11-05-2023 Protein Electrophoresis M-SpikeNot observed g/dLNot ObservedDiley Ridge Medical CenterProtein Electrophoresis NoteSee comment.[facility] CenterComment on above:Protein electrophoresis scan will follow via computer,mail, or cafeteria clerk delivery.Pyruvic AcidSee comment.[facility] CenterComment on above:Test not performedSerum ImmunofixationSee comment .[facility] Medical CenterComment on above:No monoclonality detected. Urine Random Prot Electrophor NoteSee comment.[facility] Comment on above:Protein electrophoresis scan will follow via computer,mail, or cafeteria clerk delivery.Performed at: [facility] [employer] [id number] Director: Yuri Osullivan PhD, Phone: [phone] Blood Zinc 909 ug/nOYjze907-201ZyokmgksqDiley Ridge Medical CenterComment on above:This test was developed and its performance characteristicsdetermined by [employer]. It has not been cleared orapproved by the Food and Drug Administration.Performed at: [facility] [id number] Director: Christine Pham MD, Phone: [phone] test was developed and its performance characteristicsdetermined by [employer]. It has not been cleared orapproved by the Food and Drug Administration.Performed at: [facility] [employer] [id number] Director: Christine Pham MD, Phone: [phone] This test was developed and its performance characteristicsdetermined by [employer]. It has not been cleared orapprovedby the Food and Drug Administration. --- 11/06/23 1236 ---Zinc,WB previously reported as: 909 H ug/d LThis test was developed and its performance characteristicsdetermined by [facility]. It has not been cleared orapproved by the Food and Drug Administration.Performed at: [address] [id number] Director: Christine Pham MD, Phone: [phone] [Mass/volume] in Serum or PlasmaOrdered By: Oz Kincaid on 56-26-4114Evytwxl [Mass/Vol]7.7 g/dL6.0-8.5FCleveland Clinic South Pointe HospitalProtein [Mass/volume] in UrineOrdered By: Oz Kincaid on 76-68-5346Focaajn (U) [Mass/Vol]28.8 mg/dLNot Estab.[facility] CenterProtein.monoclonal/Protein.total in 24 hour Urine by ElectrophoresisOrdered By: Oz Kincaid on 10-30-2023 Protein.monoclonal Elph (24H U) [Mass fraction]Not observed %Not Observed [facility] CenterReagin Ab [Presence] in Serum by RPROrdered By: Oz Kincaid on 81-46-4784Gktbde Ab RPR Ql (S)Non-ReactiveNon ReactiveDiley Ridge Medical CenterComment on above:Performed at: [address] [id number] Director: Yuri Osullivan PhD, Phone: [phone] West Nile virus IgG antibody detection by immunoassayOrdered By: Oz Kincaid on 57-83-7613Pzga Nile virus IgG IA Ql (S)NegativeNegativeHolzer Hospitalerum West Nile virus IgM antibody detection by immunoassayOrdered By: Oz Kincaid on 96-54-2795Agnk Nile virus IgM IA Ql (S) NegativeNegativeDiley Ridge Medical CenterComment on above:Performed at: [address] [id number] Director: Christine Pham MD, Phone: [phone] globulin measurement (mass/volume) Ordered By: Oz Kincaid on 99-49-8330Cjnluhcj (S) [Mass/Vol]3.5 g/dL2.2-3.9 [facility] Hospitalerum homogeneous pattern antinuclear antibody (PO) titerOrdered By: Oz Kincaid on 75-58-7334Yllokqysxw nuclear Ab pattern (S) [Titer]N/AFCincinnati VA Medical Centererum nuclear antibody titerOrdered By: Oz Kincaid on 39-49-4508Qrcfbmm Ab (S) [Titer]PositiveAbnormal.[facility] CenterComment on above:Negative <1:80 Borderline 1:80 Positive >1:80Serum or plasma albumin/globulin mass ratioOrdered By: Oz Kincaid on 58-84-4088Njrxnnp/Globulin [Mass ratio]1.2 {ratio}0.7-1.7FCincinnati VA Medical Centererum or plasma alpha 1 globulin measurement by electrophoresis (mass/volume)Ordered By: Oz Kincaid on 36-87-1777Unzzx 1 globulin Elph [Mass/Vol] 0.3 g/dL0.0-0.4FCincinnati VA Medical Centererum or plasma alpha 2 globulin measurement by electrophoresis (mass/volume)Ordered By: Oz Kincaid on 10-30-2023 Alpha 2 globulin Elph [Mass/Vol]1.0 g/dL0.4-1.0[facility] Serum or plasma beta globulin measurement by electrophoresis (mass/volume) Ordered By: Oz Kincaid on 10-38-8163Lzro globulin Elph [Mass/Vol]1.1 g/dL0.7-1.3 [facility] Hospitalerum or plasma ceruloplasmin measurement (mass/volume)Ordered By: Oz Kincaid on 19-05-3538Tundcfawkrrco [Mass/Vol]30.1 mg/dL19.0-39.0[facility] CenterComment on above:Performed at: [facility] [id number] Director: Yuri Osullivan PhD, Phone: [phone] or plasma gamma globulin measurement by electrophoresis (mass/volume)Ordered By: Oz Kincaid on 45-65-1096Kbkda globulin Elph [Mass/Vol]1.1 g/dL0.4-1.8Holzer Hospitalerum or plasma homocysteine measurement (moles/volume)Ordered By: Oz Kincaid on 10-30-2023 Homocysteine [Moles/Vol]20.7 umol/LHigh0.0-17.2FC[facility] Comment on above:Performed at: [place] [id number] [place], [place] [id number] Director: Yuri Osullivan PhD, Phone: [phone] or plasma lutropin measurement (units/volume)Ordered By: Oz Kincaid on 44-33-9996Haluivjx Qn 60.4 m[IU]/mLHigh7.7-58.5FCleveland Clinic South Pointe HospitalComment on above:Adult Female Range Follicular phase 2.4 - 12.6 Ovulation phase 14.0 - 95.6 Luteal phase 1.0 - 11.4 Postmenopausal 7.7 - 58.5Serum or plasma methylmalonate measurement (moles/volume)Ordered By: Oz Kincaid on 38-44-7315Wblmixgzkkjtsa [Moles/Vol]247 nmol/L0-378D[facility] Medical CenterComment on above:This test was developed and its performance characteristicsdetermined by [employer]. It has not been cleared orapproved by the Food and Drug Administration.Performed at: [facility] [address] [id number] Director: Christine Pham MD, Phone: [phone] test was developed and its performance characteristicsdetermined by [employer]. It has not been cleared orapproved by the Food and Drug Administration.Performed at: [address] [id number] Director: Christine Pham MD, Phone: [phone] This test was developed and its performance characteristicsdetermined by [employer]. It has not been cleared orapprovedby the Food and Drug Administration. --- 11/06/23 1236 ---Methylmal Acid previously reported as: 247 nmol/LThis test was developed and its performance characteristicsdetermined by [employer]. It has notbeen cleared orapproved by the Food and Drug Administration.Performed at: [address] [id number] Director: Christine Pham MD, Phone: [phone] or plasma pyridoxine measurement (mass/volume)Ordered By: Oz Kincaid on 40-25-2049Yndhuzecmr [Mass/Vol]8.8 ug/L3.4-65.2FCleveland Clinic South Pointe HospitalComment on above:This test was developed and its performance characteristicsdetermined by [facility]. It has not been cleared orapproved by the Food and Drug Administration. Deficiency: <3.4 Marginal: 3.4 - 5.1 Adequate: >5.1Performed at: [facility] [address] [id number] Director: Christine Pham MD, Phone: [phone] or plasma rheumatoid factor measurement (units/volume)Ordered By: Oz Kincaid on 10-30-2023 Rheumatoid factor Qn[IU]/mL<14.0Holzer Hospitalerum speckled pattern antinuclear antibody (PO) titerOrdered By: Oz Kincaid on 10-30-2023 Speckled nuclear Ab pattern (S) [Titer]1:80.[facility] Comment on above:ICAP nomenclature: AC-2,4,5,29Thyrotropin [Units/volume] in Serum or PlasmaOrdered By: Oz Kincaid on 28-15-9509QNN Qn6.38 m[IU]/LHigh0.45-5.33 [facility] CenterThyroxine (T4) free [Mass/volume] in Serum or PlasmaOrdered By: Oz Kincaid on 84-85-9986Uqam T4 [Mass/Vol]0.89 ng/dL0.61-1.12 [facility] CenterUrine alpha 1 globulin/total protein by electrophoresisOrdered By: Oz Kincaid on 97-10-5306Cozeq 1 globulin Elph (U) [Mass fraction]0.4 %.[facility] Medical CenterUrine alpha 2 globulin/total protein ratio by electrophoresisOrdered By: Oz Kincaid on 21-30-2286Imhqs 2 globulin Elph (U) [Mass fraction]8.9 %.[facility] Medical CenterUrine beta globulin measurement by electrophoresis (mass/volume)Ordered By: Oz Kincaid on 63-13-1266Pith globulin Elph (U) [Mass/Vol]31.7 %.[facility] CenterVitamin B12 ser/plasOrdered By: Oz Kincaid on 55-55-5577Rzgkwwcmp (Vitamin B12) [Mass/Vol]300 pg/tW015-763MwzlamhweDiley Ridge Medical CenterGlucose Glucometer (BldC) [Mass/Vol]Ordered By: Elva Florian on 37-46-6464Eqsrqdi [Mass/Vol]134 mg/dLDiley Ridge Medical CenterComment on above:Random Glucose Reference Range is dependent on time and content of last meal. Glucose of more than 200 mg/dL in a nonstressed, ambulatory subject supports the diagnosis of Diabetes Mellitus.No Panel InformationOrdered By: Elva Florian on 19-81-4813Trrorpt Glucose CommentGlu2: cleaned meterDiley Ridge Medical CenterCholesterol [Mass/volume] in Serum or PlasmaOrdered By: Elva Florian on 27-83-3989Zgfqqjjbtmn [Mass/Vol]125 mg/sHVta493-342HwvbbxnbbDiley Ridge Medical CenterComment on above:Chol less than 200 mg/dl low riskChol 201-239 mg/dl borderline riskChol 240 mg/dl and greater high riskCholesterol in LDL Calc [Mass/Vol]Ordered By: Elva Florian on 38-61-3944Rxlswitbdub in LDL [Mass/Vol] 59 mg/dL0-100[facility] CenterComment on above:LDL ATP III CLASSIFICATIONLDL less than 100 mg/dL OptimalLDL 100-129 mg/dL Near or above cpjceguDGF465-946 mg/dL Borderline highLDL 160-189 mg/dL HighLDL greater than 189 mg/dL Very highCholesterol in VLDL Calc [Mass/Vol]Ordered By: Elva Florian on 14-64-8293Ltensjjcaiw in VLDL [Mass/Vol]39 mg/dLDiley Ridge Medical CenterMagnesium [Mass/volume] in Serum or PlasmaOrdered By: Elva Florian on 05-05-2202Hjqswdmzz [Mass/Vol]1.6 mg/dLLow1.9-2.7FCincinnati VA Medical Centererum or plasma high density lipoprotein (HDL) cholesterol measurement Ordered By: Elva Florian on 06-16-9570Vvvudcdhnip in HDL [Mass/Vol]26 mg/dL 23-92[facility] CenterComment on above:HDL CHOL ATP-III CLASSIFICATION Cardiovascular RiskHDL > or equal to 60 mg/dL LOWHDL < 40 mg/dL HIGHSerum or plasma total cholesterol/high density lipoprotein (HDL) cholesterol mass ratOrdered By: Elva Florian on 37-05-7672Kaxmgsftkdc.total/Cholesterol in HDL [Mass ratio]4.8 {ratio}<5.0[facility] Medical CenterThyrotropin [Units/volume] in Serum or PlasmaOrdered By: Elva Florian on 59-10-0255CEZ Qn 2.48 m[IU]/L0.45-5.33[facility] CenterTriglyceride [Mass/volume] in Serum or PlasmaOrdered By: Elva Osborndeepa on 41-11-0133Qokinbbjewsg [Mass/Vol]198 mg/dLHigh0-149D[facility] CenterComment on above: TRIG ATP III CLASSIFICATIONTRIG less than 150 mg/dL NormalTRIG 150-199 mg/dL Borderline highTRIG 200-500 mg/dL High TRIG greater than 500 mg/dL Very highStandard traceable to the Center for Disease Conrtrol and Prevention (CDC) test method.Activated partial thromboplastin time (aPTT) in platelet poor plasma by coagulation aOrdered By: Edgar Valenzuela on 62-03-3107dIOA Coag (PPP) [Time] 29.3 s25.1-36.5FCleveland Clinic South Pointe HospitalComment on above:A hematocrit value greater than 55% may lead to inaccurate results in coagulation testing. Patientshaving hematocrit values >55% require a special collection tube for coagulation studies. Please contact the laboratory at [phone] for redraw instructions.Basophils Auto (Bld) [#/Vol]Ordered By: Edgar Valenzuela on 09-12-2023 Basophils (Bld) [#/Vol]0.1 10*3/uL0.0-0.2FCleveland Clinic [facility] Po[facility] Hospital Basophils/100 WBC Auto (Bld)Ordered By: Edgar Valenzuela on 45-49-7452Bmqsdnbmt/100 WBC (Bld)0.9 %.[facility] CenterCalcium [Mass/volume] in Serum or PlasmaOrdered By: Edgar Valenzuela on 56-13-7547Xszpces [Mass/Vol]10.5 mg/dLHigh 8.6-10.3FCleveland Clinic South Pointe HospitalCarbon dioxide, total [Moles/volume] in Serum or PlasmaOrdered By: Edgar Valenzuela on 14-19-7999EJ1 [Moles/Vol]25.0 mmol/L21.0-31.0[facility] CenterChloride [Moles/volume] in Serum or PlasmaOrdered By: Edgar Valenzuela on 26-97-7138Dxzsokwi [Moles/Vol]102 mmol/L 98-107[facility] CenterCreatine kinase [Enzymatic activity/volume] in Serum or PlasmaOrdered By: Edgar Valenzuela on 84-71-1174OH [Catalytic activity/Vol]45 U/R65-980KesvczcrzDiley Ridge Medical CenterCreatinine [Mass/volume] in Serum or PlasmaOrdered By: Edgar Valenzuela on 09-12-2023 Creatinine [Mass/Vol]0.84 mg/dL0.60-1.20[facility] Eosinophils Auto (Bld) [#/Vol]Ordered By: Edgar Valenzuela on 20-47-4907Gfoieguxbpn (Bld) [#/Vol]0.2 10*3/uL0.0-0.45[facility] Eosinophils/100 WBC Auto (Bld)Ordered By: Edgar Valenzuela on 09-12-2023 Eosinophils/100 WBC (Bld)1.7 %.[facility] CenterErythrocyte distribution width Auto (RBC) [Ratio]Ordered By: Edgar Valenzuela on 09-12-2023 Erythrocyte distribution width (RBC) [Ratio]12.7 %11.9-15.3FCleveland Clinic South Pointe HospitalGlucose [Mass/volume] in Serum or PlasmaOrdered By: Edgar Valenzuela on 59-28-0150Dgyaohk [Mass/Vol]150 mg/qKCqxq67-140MbyvdgvynDiley Ridge Medical CenterComment on above:ADA recommended reference rangeRandom Glucose Reference Range is dependent on time and content of last meal. Glucose of more than 200 mg/dL in a nonstressed, ambulatory subject supports the diagnosisof Diabetes Mellitus.HbA1c HPLC (Bld) [Mass fraction]on 33-40-1255XfA1f (Bld) [Mass fraction]6.6 %[facility] Medical CenterHematocrit Auto (Bld) [Volume fraction]Ordered By: Edgar Valenzuela on 67-24-7758Bpjbngwyxj (Bld) [Volume fraction]49.3 %High34.0-46.4FCleveland Clinic South Pointe HospitalHemoglobin [Mass/volume] in BloodOrdered By: Edgar Valenzuela on 66-15-5505Vvrmuvivbw (Bld) [Mass/Vol]16.9 g/wDQkzw69.8-15.4FCleveland Clinic South Pointe HospitalINR in Platelet poor plasma by Coagulation assayOrdered By: Edgar Valenzuela on 15-01-0512KUI Coag (PPP) [Relative time]1.1 {INR}[facility] CenterComment on above:INR Therapeutic Range A) Pre- and [...] by Automated counOrdered By: Edgar Valenzuela on 71-10-4287FHO corrected for nucl RBC Auto (Bld) [#/Vol]9.8 10*3/uL3.8-11.6FCleveland Clinic [facility] Po[facility] Hospital Lymphocytes Auto (Bld) [#/Vol]Ordered By: Edgar Valenzuela on 41-32-4252Fswoljsjdjj (Bld) [#/Vol]2.0 10*3/uL1.00-4.8[facility] Lymphocytes/100 WBC Auto (Bld)Ordered By: Edgar Valenzuela on 09-12-2023 Lymphocytes/100 WBC (Bld)20.2 %.[facility] Auto (RBC) [Entitic mass]Ordered By: Edgar Valenzuela on 35-57-2761QLG (RBC) [Entitic mass] 32.7 pg24.7-34.3FCorey Hospital Auto (RBC) [Mass/Vol] Ordered By: Edgar Valenzuela on 61-09-8822GDIV (RBC) [Mass/Vol]34.2 g/dL32.0-35.0 [facility] CenterMCV Auto (RBC) [Entitic vol]Ordered By: Edgar Valenzuela on 66-44-5800DBT (RBC) [Entitic vol]95.6 sQ33-950MnglqkdxrDiley Ridge Medical CenterMonocyte distribution width [Entitic volume] in Blood by Automated Ordered By: Edgar Valenzuela on 67-61-4613Ijndhvdj distribution width Auto (Bld) [Entitic vol]19.90 %0.00-20.00[facility] CenterMonocytes Auto (Bld) [#/Vol]Ordered By: Edgar Valenzuela on 25-42-7754Ornzugvdn (Bld) [#/Vol]0.6 10*3/uL0.0-0.8[facility] CenterMonocytes/100 WBC Auto (Bld) Ordered By: Edgar Valenzuela on 43-39-5259Plsetgxmx/100 WBC (Bld)5.9 %.[facility] CenterNatriuretic peptide B [Mass/Vol]Ordered By: Edgar Valenzuela on 22-24-6434Kjsekksecpl peptide B (Bld) [Mass/Vol]112.0 pg/mLHigh5-100 [facility] CenterNeutrophils Auto (Bld) [#/Vol]Ordered By: Edgar Valenzuela on 59-63-8309Tjqswjlgyve (Bld) [#/Vol]7.0 10*3/uL1.8-7.7FCleveland Clinic South Pointe HospitalNeutrophils/100 WBC Auto (Bld)Ordered By: Edgar Valenzuela on 74-15-3120Dsrdotmdjgb/100 WBC (Bld)71.3 %.[facility] CenterNo Panel InformationOrdered By: Edgar Valenzuela on 04-96-2957Olysrzrcc GFR (CKD-EPI) > 60.0 mL/MinDiley Ridge Medical CenterPharmacy Creatinine Clearance (Chem73.11[facility] CenterNo Panel Informationon 09-12-2023 Bedside Vnaltuk831LwpagylxyDiley Ridge Medical CenterNucleated erythrocytes [Presence] in Blood by Automated countOrdered By: Edgar Valenzuela on 09-12-2023 Nucleated RBC Auto Ql (Bld)0.2 /100{WBC}0-0.5FC[facility] Hospital Platelet mean volume Auto (Bld) [Entitic vol]Ordered By: Edgar Valenzuela on 83-60-0457Tkdxazbm mean volume (Bld) [Entitic vol]9.5 fL6.3-10.7FCleveland Clinic South Pointe HospitalPlatelets Auto (Bld) [#/Vol]Ordered By: Edgar Valenzuela on 84-59-1909Jqkedkfzj (Bld) [#/Vol]195 10*3/fT921-060PcaaeikbjDiley Ridge Medical CenterPotassium [Moles/volume] in Serum or PlasmaOrdered By: Edgar Valenzuela on 71-89-9951Ulsvareui [Moles/Vol]4.0 mmol/L3.5-5.1FCleveland Clinic South Pointe HospitalProthrombin time (PT)Ordered By: Edgar Valenzuela on 54-16-5421WX Coag (PPP) [Time]12.7 s9.0-12.9[facility] CenterComment on above:A hematocrit value greater than 55% may lead to inaccurate results in coagulation testing. Patientshaving hematocrit values >55% require a special collection tube for coagulation studies. Please contact the laboratory at [phone] for redraw instructions.RBC Auto (Bld) [#/Vol]Ordered By: Edgar Valenzuela on 66-66-7385SVU (Bld) [#/Vol]5.16 10*6/uLHigh3.60-5.00Holzer Hospitalerum or plasma anion gap determinationOrdered By: Edgar Valenzuela on 73-68-6563Wpnxj gap [Moles/Vol]15.0 mmol/L6.0-15.0Holzer Hospitalodium [Moles/volume] in Serum or PlasmaOrdered By: Edgar Valenzuela on 89-73-8446Qgehnn [Moles/Vol]138 mmol/W063-986XghzoawovDiley Ridge Medical Center Troponin I.cardiac [Mass/volume] in Serum or Plasma by Detection limit <= 0.01 ng/Ordered By: Edgar Valenzuela on 08-36-4683Yhkvfwrs I.cardiac DL <= 0.01 ng/mL [Mass/Vol]7.3 pg/mL0.0-15.0[facility] CenterUrea nitrogen [Mass/volume] in Serum or PlasmaOrdered By: Edgar Valenzuela on 20-67-9840Isos nitrogen [Mass/Vol]11 mg/dL7-25[facility] CenterWBC Auto (Bld) [#/Vol]Ordered By: Edgar Valenzuela on 15-92-7304BXQ (Bld) [#/Vol]9.8 10*3/uL 3.8-11.6FCleveland Clinic South Pointe HospitalAlanine aminotransferase [Enzymatic activity/volume] in Serum or PlasmaOrdered By: Angelique Russell on 81-39-7630YGV [Catalytic activity/Vol]19 U/L7-52[facility] CenterAlbumin [Mass/volume] in Serum or Plasma by Bromocresol green (BCG) dye binding metho Ordered By: Angelique Russell on 45-53-0527Tbwpbmb BCG dye [Mass/Vol]4.3 g/dL3.5-5.7 [facility] CenterAlkaline phosphatase [Enzymatic activity/volume] in Serum or PlasmaOrdered By: Barbera Yvonne on 52-57-4763GMX [Catalytic activity/Vol]81 U/V72-822EvhbbpeoeDiley Ridge Medical CenterAspartate aminotransferase [Enzymatic activity/volume] in Serum or PlasmaOrdered By: Barbera Yvonne on 78-31-4679ZZM [Catalytic activity/Vol]26 U/D46-50SzbrmdxkuDiley Ridge Medical CenterBilirubin.total [Mass/volume] in Serum or PlasmaOrdered By: Tondra Mapus on 98-31-8962Tvpgmjvun [Mass/Vol]0.7 mg/dL0.3-1.0[facility] CenterCalcium [Mass/volume] in Serum or PlasmaOrdered By: Tondra Mapus on 37-11-7380Jpduzsn [Mass/Vol]10.2 mg/dL8.6-10.3FCleveland Clinic South Pointe HospitalCarbon dioxide, total [Moles/volume] in Serum or PlasmaOrdered By: Tondra Mapus on 51-48-7596SE9 [Moles/Vol]28.6 mmol/L21.0-31.0[facility] CenterChloride [Moles/volume] in Serum or PlasmaOrdered By: Angelique Russell on 09-52-4980Wziqccdc [Moles/Vol]102 mmol/F21-607VjrylkvesDiley Ridge Medical CenterCholesterol [Mass/volume] in Serum or PlasmaOrdered By: Angelique Russell on 41-34-2520Gmyctvbzypy [Mass/Vol]143 mg/kC860-408TaysnclunDiley Ridge Medical CenterComment on above:Chol less than 200 mg/dl low riskChol 201-239 mg/dl borderline riskChol 240 mg/dl and greater high riskCholesterol in LDL Calc [Mass/Vol]Ordered By: Angelique Russell on 38-72-0268Havrnqkvqdq in LDL [Mass/Vol]62 mg/dL0-100[facility] CenterComment on above:LDL ATP III CLASSIFICATIONLDL less than 100 mg/dL OptimalLDL 100-129 mg/dL Near or above naioqpuSKI454-016 mg/dL Borderline highLDL 160-189 mg/dL HighLDL greater than 189 mg/dL Very highCholesterol in VLDL Calc [Mass/Vol]Ordered By: Angelique Russell on 63-01-6748Rzvctykkhyu in VLDL [Mass/Vol]51 mg/dLDiley Ridge Medical CenterCreatinine [Mass/volume] in Serum or PlasmaOrdered By: Angelique Russell on 61-29-5016Itfrmhsppl [Mass/Vol]0.91 mg/dL0.60-1.20[facility] CenterCreatinine [Mass/volume] in UrineOrdered By: Angelique Russell on 09-05-2023 Creatinine (U) [Mass/Vol]118.0 mg/dLDiley Ridge Medical CenterComment on above:No reference range establishedGlobulin Calc (S) [Mass/Vol]Ordered By: Angelique Russell on 12-58-5211Vhvmaiqe (S) [Mass/Vol]2.7 g/dLDiley Ridge Medical CenterGlucose [Mass/volume] in Serum or PlasmaOrdered By: Angelique Russell on 69-93-0243Gdgqnou [Mass/Vol]197 mg/vGQaym96-686UlbnttzlyDiley Ridge Medical CenterComment on above:ADA recommended reference rangeRandom Glucose Reference Range is dependent on time and content of last meal. Glucose of more than 200 mg/dL in a nonstressed, ambulatory subject supports the diagnosisof Diabetes Mellitus.Microalbumin [Mass/volume] in UrineOrdered By: Angelique Russell on 61-04-7785Hlusazp DL <= 20 mg/L (U) [Mass/Vol]18.4 mg/dLHigh0.0-1.8[facility] CenterNo Panel InformationOrdered By: Angelique Russell on 45-28-5076Jjdxdnxue GFR (CKD-EPI)> 60.0 mL/MinDiley Ridge Medical Center Pharmacy Creatinine Clearance (ChemN/[facility] HospitalPotassium [Moles/volume] in Serum or PlasmaOrdered By: Angelique Russell on 09-05-2023 Potassium [Moles/Vol]4.2 mmol/L3.5-5.1FCleveland Clinic South Pointe HospitalProtein [Mass/volume] in Serum or PlasmaOrdered By: Angelique uRssell on 10-28-9860Dlebnrw [Mass/Vol]7.0 g/dL6.4-8.9Hol[facility] Hospitalerum or plasma albumin/globulin mass ratioOrdered By: Angelique Russell on 09-05-2023 Albumin/Globulin [Mass ratio]1.6 {ratio}[facility]zer Hospitalerum or plasma anion gap determinationOrdered By: Angelique Russell on 29-77-5635Clozu gap [Moles/Vol]13.6 mmol/L6.0-15.0[facility] Hospitalerum or plasma high density lipoprotein (HDL) cholesterol measurementOrdered By: Angelique Russell on 16-91-8348Hsfrbvvfsaw in HDL [Mass/Vol]30 mg/aY15-57UqavzklgpDiley Ridge Medical CenterComment on above:HDL CHOL ATP-III CLASSIFICATION Cardiovascular RiskHDL > or equal to 60 mg/dL LOWHDL < 40 mg/dL HIGHSerum or plasma total cholesterol/high density lipoprotein (HDL) cholesterol mass ratOrdered By: Angelique Russell on 06-23-3793Wdjwfwaixbt.total/Cholesterol in HDL [Mass ratio]4.8 {ratio}<5.0[facility] Hospitalodium [Moles/volume] in Serum or PlasmaOrdered By: Angelique Russell on 98-81-0880Lvsyxj [Moles/Vol]140 mmol/X471-415 [facility] CenterTriglyceride [Mass/volume] in Serum or Plasma Ordered By: Angelique Russell on 84-56-7652Swzrkhcpcahr [Mass/Vol]256 mg/dLHigh0-149 [facility] CenterComment on above:TRIG ATP III CLASSIFICATIONTRIG less than 150 mg/dL NormalTRIG 150-199 mg/dL Borderline highTRIG 200-500 mg/dL High TRIG greater than 500 mg/dL Very highStandard traceable to the Center for Disease Conrtrol and Prevention (CDC) test method. Urea nitrogen [Mass/volume] in Serum or PlasmaOrdered By: Angelique Russell on 25-36-1416Cukk nitrogen [Mass/Vol]12 mg/dL7-25[facility] Urine microalbumin/creatinine mass ratioOrdered By: Angelique Russell on 09-05-2023 Albumin/Creatinine DL <= 20 mg/L (U) [Mass ratio]155.0 mg/gHigh0.0-30.0[facility] CenterComment on above:30-300 mg/g indicates an increased risk for diabetic nephropathy. Greater than 300 mg/g is consistent with clinical nephropathy. (Am. J. Kidney Disease 1995, 25:107)Vitamin B12 ser/plasOrdered By: Angelique Russell on 82-70-3577Mtvqwkktr (Vitamin B12) [Mass/Vol]255 pg/pI003-164 [facility] CenterLaboratory - Hematology and Cell countson 06-57-0491GqT9z (Bld) [Mass fraction]7.2 %[facility] CenterNo Panel Informationon 62-98-4225Fsorwne Biixgwy861VzyqzjbzfDiley Ridge Medical CenterA1C HEMOGLOBINon 43-93-5584TlL2p (Bld) [Mass fraction]6.3 %[employer] Other Glucose - FINGER STICKon 99-73-5206Pajxjst [Mass/Vol] 196 mg/dLNort GettingHired Other HbA1c (Bld) [Mass fraction]on 29-37-8254D6N HEMOGLOBIN [employer] Other a1c HEMOGLOBINon 09-57-8822QgE2q (Bld) [Mass fraction] 6.6 %[employer] Other Glucose - FINGER STICKon 12-04-1840Xmzzlvw [Mass/Vol] 128 mg/dLNosaint luke's north hospital–[facility] GettingHired Other HbA1c (Bld) [Mass fraction]on 09-31-5227U3X HEMOGLOBIN [employer] Other a1c HEMOGLOBINon 14-51-7696IkM9y (Bld) [Mass fraction] 7.1 %[employer] Other Glucose - FINGER STICKon 79-66-2892Uymecgg [Mass/Vol] 219 mg/dLNosaint luke's north hospital–[place] Getting[employer] Other HbA1c (Bld) [Mass fraction]on 44-70-4588M0F HEMOGLOBIN [employer] Other a1c HEMOGLOBINon 09-99-5526HsG7d (Bld) [Mass fraction] 7.7 %[employer] Other Glucose - FINGER STICKon 89-19-9177Aoeecqs [Mass/Vol] 242 mg/dLNosaint luke's north hospital–[place] Getting[employer] Other HbA1c (Bld) [Mass fraction]on 53-05-6276K8Q HEMOGLOBIN [employer] Other Consultation Noteon 13-36-9985Httpwvhrzmhw Note [id number]#1.00CD:[address] [place], [place] [address]Insurance Correspondence Officeon 95-45-7393Anjjvxchv Correspondence [id number]#1.00CD:[address] [place], [place] [address]Urine culture routineOrdered By: Milo Watters on 12-19-2021 Bacteria identified Cx Nom (U)Zeny albicansDiley Ridge Medical Center Albumin [Mass/volume] in Serum or PlasmaOrdered By: Milo Watters on 12-17-2021 Albumin [Mass/Vol]3.4 g/dL3.2-5.5FCleveland Clinic South Pointe HospitalAutomated erythrocytes count in urine sediment (number/area)Ordered By: Milo Watters on 23-75-4910LTF Auto (Urine sed) [#/Area]3-4 [HPF]0-4FCleveland Clinic South Pointe HospitalAutomated leukocytes count in urine sediment (number/area)Ordered By: Milo Watters on 42-48-9256IPZ Auto (Urine sed) [#/Area]50-100 [HPF]0-4FCleveland Clinic South Pointe HospitalAutomated urine hyaline casts count (number/volume) Ordered By: Milo Watters on 01-97-8423Sxgpjfd casts Auto (U) [#/Vol]None seen [LPF]0-1FCleveland Clinic South Pointe HospitalBasophils Auto (Bld) [#/Vol]Ordered By: Milo Watters on 78-87-2382Qfvagsptg (Bld) [#/Vol]0.1 10*3/uL0.0-0.2FCleveland Clinic South Pointe HospitalBasophils/100 WBC Auto (Bld)Ordered By: Milo Watters on 53-61-5801Bwpffotit/100 WBC (Bld)0.5 %.[facility] Bilirubin Test strip Ql (U)Ordered By: Milo Watters on 99-94-9837Hibghrxoy Ql (U)NegativeNegativeDiley Ridge Medical CenterBlood hemoglobin measurement (mass/volume)Ordered By: Milo Watters on 79-75-1494Dbeyoungxg (Bld) [Mass/Vol] 16.1 g/dL11.8-15.4FC[facility] Clinic [facility] Pointe HospitalBlood leukocytes automated count (number/volume)Ordered By: Milo Watters on 67-91-7516IHQ (Bld) [#/Vol] 10.7 10*3/uL4.5-11.0[facility] CenterCast typing in urine sediment by light microscopyOrdered By: Milo Watters on 31-97-8121Rxwsf LM Nom (Urine sed)None seen [LPF]None SeenDiley Ridge Medical CenterColor Auto (U)Ordered By: Milo Watters on 41-54-2913Qcfib (U)YellowYellowDiley Ridge Medical CenterCreatinine and Glomerular filtration rate.predicted panel (S/P/Bld)Ordered By: Milo Watters on 81-55-6503Vwgjccmkjo [Mass/Vol]0.89 mg/dL 0.44-1.03[facility] CenterEosinophils Auto (Bld) [#/Vol]Ordered By: Milo Watters on 84-65-0897Zlvbkugybiu (Bld) [#/Vol]0.1 10*3/uL0.0-0.45 [facility] CenterEosinophils/100 WBC Auto (Bld)Ordered By: Milo Watters on 57-48-4738Rjgytgefdjr/100 WBC (Bld)1.0 %.[facility] CenterErythrocyte distribution width Auto (RBC) [Ratio]Ordered By: Milo Watters on 74-13-2437Lqdlhujkxbr distribution width (RBC) [Ratio]13.1 % 11.9-15.3FC[facility] Clinic [facility] Pointe HospitalEstimated glomerular filtration rate (GFR) non- AmericanOrdered By: Milo Watters on 86-76-2946JJR/1.73 sq M.predicted among non-blacks MDRD (S/P/Bld) [Vol rate/Area]> 60 mL/MinDiley Ridge Medical CenterGlobulin Calc (S) [Mass/Vol]Ordered By: Milo Watters on 12-46-3714Aohlbbzl (S) [Mass/Vol]3.9 g/dLDiley Ridge Medical Center Hematocrit Auto (Bld) [Volume fraction]Ordered By: Milo Watters on 12-17-2021 Hematocrit (Bld) [Volume fraction]48.5 %34.0-46.4FCleveland Clinic South Pointe HospitalKetones Auto test strip (U) [Mass/Vol]Ordered By: Milo Watters on 48-18-1579Sqfdruf (U) [Mass/Vol]NegativeNegativeDiley Ridge Medical CenterLaboratory - Hematology and Cell countsOrdered By: Milo Watters on 53-76-1327Caiegosqf RBC/100 WBC (Bld) [Ratio]0.1 %0-0.5FCleveland Clinic South Pointe HospitalLymphocytes Auto (Bld) [#/Vol]Ordered By: Milo Watters on 34-88-7406Lcdurdbxlcv (Bld) [#/Vol]1.5 10*3/uL1.00-4.8[facility] CenterLymphocytes/100 WBC Auto (Bld)Ordered By: Milo Watters on 12-17-2021 Lymphocytes/100 WBC (Bld)14.2 %.[facility] HospitalH Auto (RBC) [Entitic mass]Ordered By: Milo Watters on 31-15-9089TPM (RBC) [Entitic mass] 31.4 pg24.7-34.3FC[facility] Clinic [facility] Pointe HospitalMCHC Auto (RBC) [Mass/Vol] Ordered By: Milo Watters on 76-89-1050UCXL (RBC) [Mass/Vol]33.2 g/dL32.0-35.0 [facility] CenterMCV Auto (RBC) [Entitic vol]Ordered By: Milo Watters on 84-42-7156OYK (RBC) [Entitic vol]94.6 mX84-796DqassalriDiley Ridge Medical CenterMonocytes Auto (Bld) [#/Vol]Ordered By: Milo Watters on 64-67-2823Havgcbbrh (Bld) [#/Vol]0.8 10*3/uL0.0-0.8[facility] CenterMonocytes/100 WBC Auto (Bld)Ordered By: Milo Watters on 12-17-2021 Monocytes/100 WBC (Bld)7.5 %.[facility] CenterNeutrophils Auto (Bld) [#/Vol]Ordered By: Milo Watters on [id number] (Bld) [#/Vol]8.2 10*3/uL1.8-7.7FCleveland Clinic South Pointe HospitalNeutrophils/100 WBC Auto (Bld) Ordered By: Milo Watters on 56-97-5371Lmsxapvsldg/100 WBC (Bld)76.8 %.[facility] Medical CenterNitrite Test strip Ql (U)Ordered By: Milo Watters on 60-07-1748Mjmeswu Ql (U)NegativeNegativeDiley Ridge Medical CenterNo Panel InformationOrdered By: Milo Watters on 18-78-9475Hwsgpfjsb GFR ()> 60 mL/MinDiley Ridge Medical CenterComment on above:GFR estimated reference range: According to KDOQI guidelines, <60 ml/min/1.73m2 is sufficient todiagnose a patient with chronic kidney disease.Pharmacy Creatinine Clearance (Chem70.55[facility] Medical CenterPlatelet mean volume Auto (Bld) [Entitic vol]Ordered By: Milo Watters on 23-96-1738Mhdwqvng mean volume (Bld) [Entitic vol]8.7 fL6.3-10.7FCleveland Clinic South Pointe HospitalPlatelets Auto (Bld) [#/Vol]Ordered By: Milo Watters on 75-30-5528Agvxyzlqi (Bld) [#/Vol]239 10*3/pO538-961IgrdadijcDiley Ridge Medical CenterProtein Auto test strip (U) [Mass/Vol]Ordered By: Milo Watters on 30-50-8831Bbynsmp (U) [Mass/Vol]Trace mg/dLNegativeDiley Ridge Medical CenterProtein [Mass/volume] in Serum or PlasmaOrdered By: Milo Watters on 05-24-3865Ixetxqz [Mass/Vol]7.3 g/dL6.1-7.9 [facility] CenterRBC Auto (Bld) [#/Vol]Ordered By: Milo Watters on 49-60-5422WEU (Bld) [#/Vol]5.13 10*6/uL3.60-5.00Holzer Hospitalerum or plasma alanine aminotransferase measurement without P-5'-P (enzymatic activiOrdered By: Milo Watters on 06-22-9623FHM No additional P-5'-P [Catalytic activity/Vol]38 U/B59-64KabmmvgvrHolzer Hospitalerum or plasma albumin/globulin mass ratioOrdered By: Milo Watters on 12-17-2021 Albumin/Globulin [Mass ratio]0.9 {ratio}Holzer Hospitalerum or plasma alkaline phosphatase measurement (enzymatic activity/volume)Ordered By: Milo Watters on 53-57-3334UNR [Catalytic activity/Vol]109 U/I21-73HkehncdhoHolzer Hospitalerum or plasma aspartate aminotransferase measurement (enzymatic activity/volume)Ordered By: Milo Watters on 66-00-6410WKP [Catalytic activity/Vol]43 U/I44-60VpaenbvwiHolzer Hospitalerum or plasma calcium measurement (mass/volume)Ordered By: Milo Watters on 29-91-9566Qxibvjp [Mass/Vol]10.0 mg/dL8.2-10.2FCincinnati VA Medical Centererum or plasma chloride measurement (moles/volume)Ordered By: Milo Watters on 12-17-2021 Chloride [Moles/Vol]102 mmol/B57-158ZtbdmhblzHolzer Hospitalerum or plasma glucose measurement (mass/volume)Ordered By: Milo Watters on 12-17-2021 Glucose [Mass/Vol]231 mg/hW79-800EjtnmgtxnDiley Ridge Medical CenterComment on above:ADA recommended reference range Random Glucose Reference Range is dependent on time and content of last meal. Glucose of more than 200 mg/dL in a nonstressed, ambulatory subject supports the diagnosis of Diabetes Mellitus.Serum or plasma potassium measurement (moles/volume)Ordered By: OSORIO WHITE on 10-71-3809Kiqourbqa [Moles/Vol]3.6 mmol/L3.5-5.1FCincinnati VA Medical Centererum or plasma sodium measurement (moles/volume)Ordered By: Milo Watters on 48-05-0182Aacppa [Moles/Vol]137 mmol/V383-896UvhlpevmgHolzer Hospitalerum or plasma total bilirubin measurement (mass/volume)Ordered By: Milo Watters on 80-60-0064Oddakzkky [Mass/Vol]0.8 mg/dL0.3-1.2FCincinnati VA Medical Centererum or plasma total carbon dioxide measurement (moles/volume)Ordered By: Milo Watetrs on 68-59-6773KS6 [Moles/Vol]24.6 mmol/L22.0-30.0[facility] Serum or plasma urea nitrogen measurement (mass/volume)Ordered By: Milo Watters on 70-81-6557Hras nitrogen [Mass/Vol]8 mg/dL9-23Holzer Hospitalpecific gravity Auto test strip (U) [Rel density]Ordered By: Milo Watters on 73-01-3198Tkbvdynx gravity (U) [Rel density]1.0301.001-1.030Holzer Hospitalquamous epithelial cells detection in urine sediment by light microscopyOrdered By: Milo Watters on 84-52-7166Jtzjpkpjra cells.squamous LM Ql (Urine sed)None seen [HPF]0-2FCleveland Clinic South Pointe HospitalUrine bacteria detection by automated methodOrdered By: Milo Watters on 12-17-2021 Bacteria Auto Ql (U)RareNone [facility] CenterUrine clarity by refractometry automatedOrdered By: Milo Watters on 59-68-0146Fdhuyzt Refractometry automated (U)ClearClearFCleveland Clinic South Pointe HospitalUrine glucose measurement by automated test strip (mass/volume)Ordered By: Milo Watters on 60-56-0667Pcehbzm Auto test strip (U) [Mass/Vol]>=1000 mg/dLNoPremier Health Miami Valley Hospital SouthUrine hemoglobin detection by automated test stripOrdered By: Milo Watters on 93-62-2635Phgjnlhmue Auto test strip Ql (U)1+ NegativeDiley Ridge Medical CenterUrine leukocyte esterase detection by automated test stripOrdered By: Milo Watters on 89-11-2506Gulmfojra esterase Auto test strip Ql (U)3+NegativeDiley Ridge Medical CenterUrobilinogen Auto test strip (U) [Mass/Vol]Ordered By: Milo Watters on 12-17-2021 Urobilinogen (U) [Mass/Vol]Normal mg/dLNoGuernsey Memorial Hospital Yeast detection in urine sediment by light microscopyOrdered By: Milo Watters on 00-25-4581Xdlan LM Ql (Urine sed)3+ [HPF]None [facility] CenterpH Auto test strip (U)Ordered By: Milo Watters on 88-47-6282sB (U)6.0 [pH]5.0-9.0[facility] CenterBacterial blood cultureOrdered By: Arleen Stephen on 51-81-6518Qvvykapj identified Cx Nom (Bld)NO GROWTH 5 DAYS [facility] CenterBasophils Auto (Bld) [#/Vol]Ordered By: Walter Montgomery on 54-80-2061Junnbstwv (Bld) [#/Vol]0.0 10*3/uL0.0-0.2FCleveland Clinic South Pointe HospitalBasophils/100 WBC Auto (Bld)Ordered By: Walter Montgomery on 12-13-2021 Basophils/100 WBC (Bld)0.1 %.[facility] CenterBlood hemoglobin measurement (mass/volume)Ordered By: Walter Montgomery on 92-48-9773Kndugrgfkk (Bld) [Mass/Vol]14.2 g/dL11.8-15.4FCleveland Clinic South Pointe HospitalBlood leukocytes automated count (number/volume)Ordered By: Walter Montgomery on 21-98-7553BDD (Bld) [#/Vol]9.4 10*3/uL4.5-11.0[facility] CenterConsultation Noteon 83-39-0351Vrwtckxlfuxh [id number]#1.00CD:127 [facility] HospitalCreatinine and Glomerular filtration rate.predicted panel (S/P/Bld)Ordered By: Walter Montgomery on 90-75-0047Zjvrayalgr [Mass/Vol]0.75 mg/dL0.44-1.03[facility] CenterDirect bilirubin measurementOrdered By: Walter Montgomery on 43-21-1257Nomgemsjy.direct [Mass/Vol]0.2 mg/dL0.0-0.4FCleveland Clinic South Pointe HospitalEosinophils Auto (Bld) [#/Vol] Ordered By: Walter Montgomery on 52-07-9457Iwzcysehbup (Bld) [#/Vol]0.0 10*3/uL 0.0-0.45[facility] CenterEosinophils/100 WBC Auto (Bld)Ordered By: Walter Montgomery on 83-02-7097Dazmwbjbhma/100 WBC (Bld)0.0 %.[facility] CenterErythrocyte distribution width Auto (RBC) [Ratio]Ordered By: Walter Montgomery on 31-54-2267Ywqimtnjcgb distribution width (RBC) [Ratio]12.9 %11.9-15.3 [facility] CenterEstimated glomerular filtration rate (GFR) non- AmericanOrdered By: Walter Montgomery on 74-98-4421BSW/1.73 sq M.predicted among non-blacks MDRD (S/P/Bld) [Vol rate/Area]> 60 mL/MinDiley Ridge Medical CenterGlucose Glucometer (BldC) [Mass/Vol]Ordered By: Wilmer Vance on 33-27-2098Wghizpk [Mass/Vol]230 mg/dLDiley Ridge Medical CenterComment on above:Random Glucose Reference Range is dependent on time and content of last meal. Glucose of more than 200 mg/dL in a nonstressed, ambulatory subject supports the diagnosis of Diabetes Mellitus.Hematocrit Auto (Bld) [Volume fraction]Ordered By: Walter Montgomery on 96-04-0098Owtskhyjsg (Bld) [Volume fraction] 41.9 %34.0-46.4FCleveland Clinic South Pointe HospitalLaboratory - Hematology and Cell countsOrdered By: Walter Montgomery on 96-92-7373Bggmhyznl RBC/100 WBC (Bld) [Ratio] 0.0 %0-0.5FCleveland Clinic South Pointe HospitalLymphocytes Auto (Bld) [#/Vol]Ordered By: Walter Montgomery on 44-32-4807Vvdzpvryfvd (Bld) [#/Vol]0.7 10*3/uL1.00-4.8 [facility] CenterLymphocytes/100 WBC Auto (Bld)Ordered By: Walter Montgomery on 57-91-6562Qgshkonikfn/100 WBC (Bld)7.7 %.[facility] Auto (RBC) [Entitic mass]Ordered By: Walter Montgomery on 27-22-0737QYK (RBC) [Entitic mass]32.2 pg24.7-34.3FCleveland Clinic South Pointe HospitalMCHC Auto (RBC) [Mass/Vol]Ordered By: Walter Montgomery on 22-30-1769TUUZ (RBC) [Mass/Vol]33.9 g/dL32.0-35.0[facility] CenterMCV Auto (RBC) [Entitic vol] Ordered By: Walter Montgomery on 59-23-9788YRH (RBC) [Entitic vol]95.1 jD42-841 [facility] CenterMonocytes Auto (Bld) [#/Vol]Ordered By: Walter Montgomery on 28-44-5169Nwrliymfe (Bld) [#/Vol]0.2 10*3/uL0.0-0.8[facility] CenterMonocytes/100 WBC Auto (Bld)Ordered By: Walter Montgomery on 12-13-2021 Monocytes/100 WBC (Bld)1.8 %.[facility] CenterNeutrophils Auto (Bld) [#/Vol]Ordered By: Walter Montgomery on 35-67-2121Ntngcaczqai (Bld) [#/Vol]8.5 10*3/uL1.8-7.7FCleveland Clinic South Pointe HospitalNeutrophils/100 WBC Auto (Bld) Ordered By: Walter Montgomery on 97-02-1021Bieofnfufll/100 WBC (Bld)90.4 %.[facility] CenterNo Panel InformationOrdered By: Walter Montgomery on 12-13-2021 Estimated GFR ()> 60 mL/MinDiley Ridge Medical Center Comment on above:GFR estimated reference range: According to KDOQI guidelines, <60 ml/min/1.73m2 is sufficient todiagnose a patient with chronic kidney disease.Pharmacy Creatinine Clearance (Chem84.79[facility] CenterPlatelet mean volume Auto (Bld) [Entitic vol]Ordered By: Walter Montgomery on 48-70-8199Fndpzkos mean volume (Bld) [Entitic vol]9.3 fL6.3-10.7FCleveland Clinic South Pointe HospitalPlatelets Auto (Bld) [#/Vol]Ordered By: Walter Montgomery on 10-48-3990Etjqrngwv (Bld) [#/Vol]178 10*3/qD643-460VgdevvhstDiley Ridge Medical CenterRBC Auto (Bld) [#/Vol]Ordered By: Walter Montgomery on 06-14-6721DDA (Bld) [#/Vol]4.41 10*6/uL3.60-5.00Hol[facility] Hospitalerum or plasma chloride measurement (moles/volume)Ordered By: Walter Montgomery on 39-30-3818Aklatvsz [Moles/Vol]105 mmol/S72-706IwhcrowstHolzer Hospitalerum or plasma non-glucuronidated bilirubin measurement (mass/volume)Ordered By: Walter Montgomery on 49-75-2158Lqsucfett.indirect [Mass/Vol]0.5 mg/dLHolzer Hospitalerum or plasma potassium measurement (moles/volume)Ordered By: Walter Montgomery on 06-47-9165Azakepuxr [Moles/Vol]4.4 mmol/L3.5-5.1FCincinnati VA Medical Centererum or plasma sodium measurement (moles/volume)Ordered By: Walter Montgomery on 78-59-9687Ofmpbf [Moles/Vol]137 mmol/E215-029IijjkpodqHolzer Hospitalerum or plasma total bilirubin measurement (mass/volume)Ordered By: Walter Montgomery on 54-06-5408Ekasjhqmk [Mass/Vol]0.7 mg/dL0.3-1.2FCincinnati VA Medical Centererum or plasma total carbon dioxide measurement (moles/volume)Ordered By: Walter Montgomery on 03-42-2427CN8 [Moles/Vol]24.6 mmol/L 22.0-30.0Holzer Hospitalerum or plasma urea nitrogen measurement (mass/volume)Ordered By: Walter Montgomery on 57-97-6614Saaf nitrogen [Mass/Vol]12 mg/dL9-23[facility] CenterActivated partial thromboplastin time (aPTT) in platelet poor plasma by coagulation aOrdered By: Walter Montgomery on 21-05-6180qWUA Coag (PPP) [Time]30.0 s25.1-36.5FCleveland Clinic South Pointe HospitalLaboratory - CoagulationOrdered By: Walter Montgomery on 30-85-0541LU Coag (PPP) [Time]14.1 s9.0-12.9[facility] CenterPlatelet poor plasma international normalized ratio (INR) by coagulation assay (relatOrdered By: Walter Montgomery on 76-86-8728QQH Coag (PPP) [Relative time]1.3 {INR}[facility] CenterComment on above:INR Therapeutic Range A) Pre- and [...] measurement (enzymatic activity/volume)Ordered By: Walter Montgomery on 22-99-9892OGT [Catalytic activity/Vol]92 U/M95-38FsymdywmrHolzer Hospitalerum or plasma aspartate aminotransferase measurement (enzymatic activity/volume)Ordered By: Walter Montgomery on 06-65-4917NZP [Catalytic activity/Vol]22 U/S95-01DwnimaxdaDiley Ridge Medical CenterAlbumin [Mass/volume] in Serum or PlasmaOrdered By: Arleen Stephen on 97-47-8043Nhqjloh [Mass/Vol]2.9 g/dL3.2-5.5FCleveland Clinic South Pointe HospitalGlobulin Calc (S) [Mass/Vol]Ordered By: Arleen Stephen on 79-92-5155Vpqvncaa (S) [Mass/Vol]3.0 g/dLDiley Ridge Medical CenterNo Panel InformationOrdered By: Arleen Stephen on 39-49-9639Zffuaon Glucose CommentGlu2: cleaned meterDiley Ridge Medical CenterProtein [Mass/volume] in Serum or PlasmaOrdered By: Arleen Stephen on 50-86-4151Kebgcph [Mass/Vol]5.9 g/dL6.1-7.9Holzer Hospitalerum or plasma alanine aminotransferase measurement without P-5'-P (enzymatic activiOrdered By: Arleen Stephen on 54-95-2868CES No additional P-5'-P [Catalytic activity/Vol]16 U/E87-08NwowprwozHolzer Hospitalerum or plasma albumin/globulin mass ratioOrdered By: Arleen Stephen on 08-38-2008Xwxefes/Globulin [Mass ratio]1.0 {ratio}[facility]zer Hospitalerum or plasma calcium measurement (mass/volume)Ordered By: Arleen Stephen on 16-73-8209Zfegzcl [Mass/Vol]9.2 mg/dL 8.2-10.2FCincinnati VA Medical Centererum or plasma glucose measurement (mass/volume)Ordered By: Arleen Stephen on 19-27-2209Qoxwehd [Mass/Vol]204 mg/dL 70-100[facility] CenterComment on above:ADA recommended reference range Random Glucose Reference Range is dependent on time and content of last meal. Glucose of more than 200 mg/dL in a nonstressed, ambulatory subject supports the diagnosis of Diabetes Mellitus.Urine culture routineOrdered By: Tray Randle on 91-51-4356Thbcoxgn identified Cx Nom (U)Escherichia coliDiley Ridge Medical CenterAutomated erythrocytes count in urine sediment (number/area)Ordered By: Tray Randle on 55-78-5235EWJ Auto (Urine sed) [#/Area]5-9 [HPF]0-4FCleveland Clinic South Pointe HospitalAutomated leukocytes count in urine sediment (number/area)Ordered By: Tray Randle on 89-24-5121MZK Auto (Urine sed) [#/Area]50-100 [HPF]0-4FC[facility] Automated urine hyaline casts count (number/volume)Ordered By: Tray Randle on 59-76-1338Vzibofw casts Auto (U) [#/Vol]None seen [LPF]0-1FCleveland Clinic South Pointe HospitalBilirubin Test strip Ql (U)Ordered By: Tray Rosey on 81-43-2441Zosreupgp Ql (U)NegativeNegativeDiley Ridge Medical Center COVID-19 Positive/NegativeOrdered By: Trayumu Randle on 54-63-2254PLCM-CoV-2 (COVID-19) N gene TEJINDER+probe Ql (Resp)NegativeNegativeDiley Ridge Medical CenterComment on above:Testing for SARS-CoV-2 by RT-PCR This test was developed and its performance characteristics determined by [employer] ([employer]) and validated at the [facility]. This test has not been [...] revoked sooner.COVID-19 SOFIAOrdered By: Tray Randle on 56-18-0658ZSLU-CoV+SARS-CoV-2 (COVID-19) Ag IA.rapid Ql (Resp)NegativeNegative [facility] CenterComment on above:This is a duplicate Molly SARS Antigen (ANUP) result to be used for statistical tracking purpose only.Casts typing in urine sediment by light microscopyOrdered By: Tray Randle on 26-45-4460Kfjht LM Nom (Urine sed)None seen [LPF]None SeenDiley Ridge Medical CenterColor Auto (U)Ordered By: Tray Randle on 19-51-0485Czunp (U) YellowYellowDiley Ridge Medical CenterKetones Auto test strip (U) [Mass/Vol]Ordered By: Tray Randle on 16-52-0620Gwmrqvf (U) [Mass/Vol] NegativeNegativeDiley Ridge Medical CenterNitrite Test strip Ql (U) Ordered By: Tray Randle on 52-79-0247Tadbkjr Ql (U)PositiveNegative [facility] CenterNo Panel InformationOrdered By: Tray Randle on 04-43-7732FWYO Antigen (LFIA)[facility] Protein Auto test strip (U) [Mass/Vol]Ordered By: Tray Randle on 12-09-2021 Protein (U) [Mass/Vol]NegativeNegativeHolzer Hospitalpecific gravity Auto test strip (U) [Rel density]Ordered By: Tray Randle on 54-16-5465Eervfncc gravity (U) [Rel density]1.0301.001-1.030Holzer Hospitalquamous epithelial cells detection in urine sediment by light microscopyOrdered By: Tray Randle on 98-56-3179Agphukyuuv cells.squamous LM Ql (Urine sed)10-19 [HPF]0-2FCleveland Clinic South Pointe HospitalTroponin I.cardiac [Mass/volume] in Serum or Plasma by High sensitivity methodOrdered By: Arleen Stephen on 55-78-1034Rxzvrwpk I.cardiac High sensitivity method [Mass/Vol]5 pg/mL 0-15[facility] Medical CenterUrine bacteria detection by automated methodOrdered By: Tray Randle on 31-38-8551Ldxyszfx Auto Ql (U)4+None Seen [facility] CenterUrine clarity by refractometry automatedOrdered By: Tray Randle on 07-65-8191Qwolicc Refractometry automated (U)Cloudy ClearDiley Ridge Medical CenterUrine glucose measurement by automated test strip (mass/volume)Ordered By: Tray Randle on 42-85-7789Bfdxqum Auto test strip (U) [Mass/Vol]>=1000 mg/dLNoGuernsey Memorial Hospital Urine hemoglobin detection by automated test stripOrdered By: Tray Randle on 11-67-3068Izqrvwdszn Auto test strip Ql (U)TraceNegativeDiley Ridge Medical CenterUrine lactic acid measurementOrdered By: Arleen Stephen on 97-05-2219Mtlukdk (U) [Moles/Vol]1.7 mmol/L0.5-2.2FCleveland Clinic South Pointe HospitalUrine leukocyte esterase detection by automated test stripOrdered By: Tray Randle on 78-88-9090Wimxiafyc esterase Auto test strip Ql (U)2+ NegativeDiley Ridge Medical CenterUrobilinogen Auto test strip (U) [Mass/Vol]Ordered By: Tray Randle on 78-17-4275Npteggzgcssx (U) [Mass/Vol] Normal mg/dLNoGuernsey Memorial HospitalpH Auto test strip (U)Ordered By: Tray Randle on 76-10-0407hN (U)5.5 [pH]5.0-9.0[facility] Medical CenterA1C HEMOGLOBINon 27-88-2465VoF3x (Bld) [Mass fraction]7.5 %[employer] Other HbA1c (Bld) [Mass fraction]on 28-55-8409B6N HEMOGLOBIN [employer] Other a1c HEMOGLOBINon 70-26-0840OlR8c (Bld) [Mass fraction] 6 %[employer] Other Glucose - FINGER STICKon 26-16-4946Kdrxtny [Mass/Vol] 150 mg/dLNoNanomed Skincare, [employer] ([place] [employer]) Other HbA1c (Bld) [Mass fraction]on 02-68-7660W4K HEMOGLOBIN [employer] Other A1C HEMOGLOBINon 30-36-0123PuN6m (Bld) [Mass fraction] 6.9 %[employer] Other Glucose - FINGER STICKon 32-05-2392Xbgrpaj [Mass/Vol] 244 mg/dLNort GettingHired Other HbA1c (Bld) [Mass fraction]on 89-96-6938O5T HEMOGLOBIN [employer] Other PROGRESSon 67-01-3062YMUBKSDHFAQ ID: [id number] Author: Clyde (Mello) Armand Service: ? Author [...] still. - RTC to see Nov at [facility], to ensure complete healing, and further discuss plan of care re pathology results. - call office prn for issues/concerns Clyde Hall APRN.[facility] 08-09-5798IOLUWvfobk Visit (GYNML) PRITITAYE ([id number]) 1955 F Date Time Provider Department 02/11/19 2:30 PM CLYDE HALL (MELLO) GYN During your visit today, we recorded the following information about you: Temperature Pulse Blood pressure Weight 98.7 degrees 99/minute 124/67 93.3 kg Clyde Hall APRN.FISHER TERRAPIN 02/12/2019 12:57 PM Signed Taye presents for [...] - RTC to see Nov 1 at [facility], to ensure complete healing, and further discuss plan of care re pathology results. - call office prn for issues/concerns Clyde Hall APRN.FISHER TERRAPIN Referring Provider: THEO JOAQUIN [[id number]] Allergies As of Date: 02/11/2019 Noted Allergy [...] Encounter Status:Closed by CLYDE HALL CNP on 02/12/19[facility] 63-32-7425HXSGOjphmd Visit (GYNML) TAYE GAY ([id number]) 1955 F Date Time Provider Department 01/21/19 10:45 AM THEO JOAQUIN GYNML During your visit today, we recorded the following information about you: Temperature Pulse Blood pressure Weight 98.6 degrees 94/minute 111/52 91.4 kg Theo Joaquin MD 01/22/2019 2:06 PM Signed Gynecologic Oncology [facility] Re: Taye Gay CCF#:[id number] 01/21/2019 Dear Linwood Irwin: Taye presents for [...] were sent to: Linwood Irwin MD (DrC) [facility] [address] CC: Jonas Yoder MD (PCP) Referring Provider: THEO JOAQUIN [[id number]] Allergies As of Date: 01/21/2019 Noted Allergy [...] Encounter Status:Closed by THEO JOAQUIN MD on 01/22/19[facility] PROGRESSon 39-04-2922KVIQAUFUZKA ID: [id number] Author: Theo Joaquin Service: ? Author Type: Physician Type: Progress Notes Filed: 01/22/2019 2:06 PM Note Text: Gynecologic Oncology [facility] Re: Taye Gay CCF#:[id number] 01/21/2019 Dear Linwood Irwin: Taye presents for [...] were sent to: Linwood Irwin MD (DrC) [facility] [address] [address] CC: Jonas Yoder MD (PCP)[facility] 79-38-4602YVVL Office Visit (GYNML) TAYE GAY ([id number]) 1955 F Date Time Provider Department 01/07/19 8:30 AM THEO JOAQUIN During your visit today, we recorded the following information about you: Temperature Pulse Blood pressure Weight 98.4 degrees 124/minute 103/53 90.2 kg Theo Joaquin MD 01/10/2019 11:17 PM Signed Gynecologic Oncology [facility] Re: Taye Gay CCF#:[id number] 01/07/2019 Dear Linwood Irwin: Taye presents for [...] were sent to: Linwood Irwin MD (DrC) [facility] [address] [address] CC: Jonas Yoder MD (PCP) Referring Provider: THEO JOAQUIN [[id number]] Allergies As of Date: 01/07/2019 Noted Allergy [...] Encounter Status:Closed by THEO JOAQUIN MD on 01/10/19[facility] 88-73-9472YKOZLymxaodel (GYNML) TAYE GAY ([id number]) 1955 F Date Time Provider Department 01/06/19 [...] Appointment made with Dr. Joaquin 01/07 @ 4293 for wound check Patient verbalized understanding and [...] More... Encounter Status:Closed by SHANTEL REYNOSO on 01/06/19[facility] PROGRESSon 82-55-8357GFGAEVMZLZU ID: [id number] Author: Theo Joaquin Service: ? Author Type: Physician Type: Progress Notes Filed: 01/10/2019 11:17 PM Note Text: Gynecologic Oncology [facility] Re: Taye Priti [facility][id number] 01/07/2019 Dear Linwood Irwin: Taye presents for [...] were sent to: Linwood Irwin MD (DrC) [facility] [address] [address] CC: Jonas Yoder MD (PCP)[facility] HospitalANES Yousuf 32-99-4080GBHZ POSTHNO ID: [id number] Author: Katharina Durham Service: Anesthesiology Author Type: [...] January 01, 2019 TIME: 9:45 AM PAGER/CONTACT #:[facility] PREOPo [id number] PREOPHNO ID: [id number] Author: Katharina Durham Service: Anesthesiology Author Type: [...] for 7 days Inpatient medications reviewed in [facility]. I have interviewed and examined the [...] January 01, 2019 TIME: 7:35 AM PAGER/CONTACT #:[facility] PHYSICAL [id number] PHYSICALHNO ID: [id number] Author: Petty Shahid (Fel) Service: Gynecology Oncology [...] DATE: January 01, 2019 TIME: 7:16 AM PAGER:[facility] HospitalOPERATIVE NOon 18-68-7732DUNLTTZDL NO HNO ID: [id number] Author: Theo Joaquin Service: Gynecology Oncology Author Type: Physician Type: Operative Report Filed: 01/17/2019 7:16 PM Note Text: OPERATIVE/PROCEDURE REPORT LOG ID: [id number] SURGERY/PROCEDURE DATE: 01/01/2019 INCISION/PROCEDURE START TIME: 8:11 AM INCISION CLOSE/PROCEDURE END TIME: 8:34 AM SURGEON(S)/PROCEDURALIST(S) AND PER DIEM PHYSICAL THERAPIST(S): Surgeon(s) and Role: * Theo Joaquin - [...] January 03, 2019 TIME: 2:24 PM PAGER/CONTACT #:[facility] EDon [id number] EDHNO ID: [id number] Author: Patty GalvinRn) BRENDA Bernal Service: Nursing [...] TO PATIENT: flavia st Electronically Signed By: Daryl NormanL[employer] EDHNO ID: [id number] Author: Zack GalvinRn) BRENDA Murry Service: Nursing Author Type: [...] (RECOMMENDATION): None Electronically Signed By: Zack Murry RNWorcester State Hospital EDHNO ID: [id number] Author: Jelly (Rn) BRENDA Simmons Service: Nursing [...] (RECOMMENDATION): None Electronically Signed By: Jelly Simmons RNBoston Lying-[facility] Hospital PATHOLOGYon 11-31-7771AWHIHBFD PATHOLOGYSpecimen originated from [facility] Specimen #: [id number] Submitting Physician: THEO JOAQUIN MD FINAL DIAGNOSIS [...] o'clock. EL/clay 01/01/2019 Gross examination performed at [facility], [address] [address] Date of Report: 01/05/2019 Date of Procedure: 01/01/2019 Date of Receipt: 01/01/2019 Submitted by: THEO JOAQUIN MD Location: OR Diagnostic interpretation performed at [facility], [address] [place] [address]. [place] Number: [id number] State Hospital arlette [id number] [facility] ID: [id number] Author: Nataliya (Rn) BRENDA Bell Service: Nursing [...] Nataliya Bell RN December 24, 2018 3:07 PMNormalBoston Lying-In HospitalConfirm Blood Typeon 12-17-2018 ABO/RH(D)PositiveCape Cod Hospital HospitalComment on above:Performed By: #### CONABO #### Dylan [place] [phone] and SCR (30D)on 65-08-6442JDH/RH(D)PositiveCape Cod Hospital HospitalComment on above:Performed By: #### [id number] #### [phone] 99-73-2000RLQIEkmgolo:Taye Gay MRN: Height:5' 7 (1.702 m) Weight:200 [...] 51.2 % 12/17/2018 46.0 36.0 Progress Notes ([facility]): Aracelis Charles, RN, RN 12/22/2018 11:38 AM Signed Pre-op teaching Procedure: vulvar surgery Physician: Location: [facility]: [phone] Date AND Time: 01/01/19 MEDICAL CLEARANCE: No [...] Naprosyn(naproxen) Agrylin NSAIDS Pepto-Bismol Aleve Ecotrin Persantine [place] Excedrin Plaquenil Anacin Heparin Plavix Ascriptin Herbals [...] - IV pain medication after surgery, IV WELDER EXPERIMENTAL if ordered by MD, discharged home with a prescription for PO pain medication, pain management after surgery, side effects of pain medication (including constipation, dizziness, drowsiness, and medication interactions). DVT PROPHYLAXIS - Early ambulation, SCDs, injectable anticoagulants (heparin, lovenox, etc) RESPIRATORY - Incentive spirometer, coughing/deep breathing exercises, ambulation. RETURN TO WORK - As directed by physician, please send any FMLA papers to physician's executive secretary. SYMPTOMS TO NOTIFY MD - Fever, [...] if after hours patient instructed to call teasel gig operator and ask for the doctor community organization aide. Patient and family have phone number to call 24 hours/day. Patient Evaluation: Verbalizes understanding Patient and/or family express understanding of upcoming surgery and the operative process. Questions answered. Follow Up Plan: Follow up as needed Supplemental Material Given: Pre-operative teaching packet provided to the patient: INPATIENT/OUTPATIENT printed instructions; Post-operative instruction sheet, bowel prep instruction sheet For questions contact: office at [phone] Instructed By Aracelis Charles RNHoly Family Hospitalerum or plasma calcidiol measurement (mass/volume)on 71-74-961480027164-tisebqzdqffbip D3 [Mass/Vol] 32.8 ng/cN00-806GnfynzfgfDiley Ridge Medical CenterComment on above:VITAMIN D STATUS 25(OH)VITAMIN D RANGE (ng/mL) Deficient <20 Insufficient 20 to <59Eehreewolu22 to 100Reference: Sandra MF,Felisha SCANLON, Leon SHERWOOD, et al. Evaluation,treatment, and prevention of vitamin D deficiency; an Endocrine Society clinical practice guideline. JCEM. 2010; 96(7):1911-30.Vitamin B12 ser/plason 57-54-8141Ygelisimi (Vitamin B12) [Mass/Vol]446 pg/lX462-834TnovwmipgDiley Ridge Medical CenterBASIC METABOLIC PANELon 43-33-8880Xzjpu gap11 mmol/L Normal0-19[facility] HospitalComment on above:Performed By: #### BMP ####[address] Marie [place], [place] [address]YIW/Creatinine Ratio16.0 RATIONormal 8-21[facility] HospitalComment on above:Performed By: #### BMP ####[address] [place] [address]Xwsfagb6.1 mg/dLNormal8.5-10.4[facility] Comment on above:Performed By: #### BMP ####[address],[place], [place] [address]Fnshlrza69 mmol/UEpwaql41-714Mmaf Health SystemComment on above:Performed By: #### BMP ####[address],[place], [place] [address]OW[address] mmol/MKqaonr46-03 [facility] SystemComment on above:Performed By: #### BMP ####[address],[place], [place] [address]Yktdvxvvbx7.5 mg/dLNormal0.4-1.6[facility] Comment on above:Performed By: #### BMP ####[address],[place], [place] [address]sKXU (MDRD)NormalAtrium Health [facility] SystemComment on above:Result Comment: 134GFR ml/min/1.73m2 Stage -----90 160-89 230-59 315-29 4<15 5For -Americans, multiply EGFR result by 1.210Calculation not validated for patients under 18 years of age.Performed at [facility],[address],[place] [address]Hjqrxdugi By: #### BMP ####[address],[place], [place] [address]Adqewmx mass brje110 mg/mTYqcq67-22[facility] Health SystemComment on above:Performed By: #### BMP ####[address],[place], [place] [address]Nxasgckpj molar conc4.6 mmol/L Normal3.4-5.1LScionHealth SystemComment on above:Performed By: #### BMP ####[address],[place], [place] [address]Oyfbbs961 mmol/ZGioxvm353-040Abmy Health SystemComment on above:Performed By: #### BMP ####[address],[place], [place] [address]Cxby nitrogen8 mg/dLNormal8-25[facility] SystemComment on above:Performed By: #### BMP ####[address],[place], [place] [address]PQSdh 33-34-9821VQUEKGVentricular Rate : 60 BPMAtrial Rate : 60 BPMP-R Interval : 166 msQRS Duration : 80 msQ-T Interval : 432 msQTC Calculation(Bezet) : 432 msCalculated P Emerson : 63 degreesCalculated R Emerson : 29 degreesCalculated T Emerson : 35 degreesDiagnosis:Normal sinus rhythmNormal ECGNo previous ECGs cecy ilableConfirmed by Walter Slaughter ([id number]) on 05/16/2017 3:45:18 PMNMohansic State HospitalHEMOGLOBIN,HCTon 12-64-3899Ebjomolquw (HCT)Bipf04-43Sxwn[address] Comment on above:Result Comment: 49.3Performed at [facility],[address], [place] [address]Llqobibaz By: #### HH ####[address] [place], [place] [address]Goibpgcuyf mass conc (Bld)16.9 g/nACcmy83.0-15.0[facility] HospitalComment on above:Performed By: #### HH ####Q[address]qv[address]mb[address] Dr[address]corey GallegoSaint [facility] [address] Operative Reporton 96-67-2237Swryqzwul ReportNoMount Sinai Health SystemPOCT GLUCOSEon 66-74-8112Yxjqepp mass uuel571 mg/fTFpsd74-05Xrzc54 Guz[address] StreetComment on above:Performed By: #### PCGL ####Ke[place] Lkmq[address] Ave[place], [place] [address]Lnlfzfe mass rztq449 mg/dKLdvf24-25Klcn54 Guzman StreetComment on above: Performed By: #### PCGL ####Narayanan [address]ejw[address], [place] [address]Cymkkep mass ukwn717 mg/vLGnas52-05Riqu54 Guz[address] StreetComment on above:Performed By: #### PCGL ####Narayanan Qoew[address] Ave[place], [place] [address]Fihsnih mass poqq345 mg/sWHwze64-53Xuur54 Guzman StreetComment on above:Performed By: #### PCGL ####Narayanan Wcwj[address] [place] [address] Vital Signs Date TimeVital SignValuePerforming IraqldodsJwzjcrzf52-98-9566 12:41-0400Body mass index (BMI) [Ratio]30.38 kg/j1YgrjqdLinwood Irwin MD Work Phone: 1(018)[address]10-14-2025 12:41-0400Body didmyo81 kg Linwood Irwin MD Work Phone: 1(021)[address] [place], [place] 4577510-14-2025 12:41-0400Diastolic blood hdpcredk45 mm[Hg]Linwood Irwin MD Work Phone: 1(711)[address] [place], [place] 4577510-14-2025 12:41-0400Systolic blood mm[Hg]Linwood Irwin MD Work Phone: 1(619)[address] [place], [place] 4577510-07-2025 13:19-0400Body preiep605.2 cmPpatti Irwin MD Work Phone: 1(912)[facility] [place], [place] [address]Tolguiqvtj68-01-7784 13:19-0400Body mass index (BMI) [Ratio]30.07 kg/x3YmepydLinwood Irwin MD Work Phone: 1(756)[address]10-07-2025 13:19-0400Body qhvixl99.09 kgLinwood Irwin MD Work Phone: 1(363)[facility] [place], [place] [address]Gouzmorkzt18-39-2599 13:19-0400Diastolic blood kudzwqgg91 mm[Hg]Linwood Irwin MD Work Phone: 1(041)786-[address] [place], [place] [address]Wvouebslqz09-90-8895 13:19-0400Systolic blood oxjyidwm208 mm[Hg]Linwood Irwin MD Work Phone: 1(806)646-[address] [place], [place] [address]Trqfewpgbb71-14-3636 16:15-0400Body .2 cmOz Kincaid MD Work Phone: [facility] HospitalViyqxlrtbl85-10-6552 16:15-0400Body mass index (BMI) [Ratio]30.54 kg/m2Oz Kincaid MD Work Phone: [facility] HospitalIohfuyqscu60-33-1484 16:15-0400Body afmpwo32.45 kgOz Kincaid MD Work Phone: 1(440)934-[address] [place], [place] [address]Dbtvlnvsea71-84-2494 14:23-0400Body .18 cmShantel Corralrbacher SURVIVAL EQUIPMENT REPAIRER Work Phone: 1(925)396-[address] [place], [place] 2212509-16-2025 14:23-0400 Body mass index (BMI) [Ratio]30.5 kg/q0UsnbdocfShantel Corralrbacher SURVIVAL EQUIPMENT REPAIRER Work Phone: 1(233)[address] [place], [place] 120[address]109-16-2025 14:23-0400 Body rrzmnxjznaz51 [degF]Shantel Corralzara SURVIVAL EQUIPMENT REPAIRER Work Phone: 1(328)[address] [place], [place] 120[address]109-16-2025 14:23-0400 Body xmuooa40.45 kgShantel Corralrbacher SURVIVAL EQUIPMENT REPAIRER Work Phone: 1(845)[address] [place], [place] 1206109-16-2025 14:23-0400 Diastolic blood eacvkbtq49 mm[Hg]Shantel Corralzara SURVIVAL EQUIPMENT REPAIRER Work Phone: 1(496)[address] [place], [place] 1206109-16-2025 14:23-0400 Heart rate88 /minShantel Ramirezacher SURVIVAL EQUIPMENT REPAIRER Work Phone: 1(524)[address] [place], [place] 120[address]109-16-2025 14:23-0400 SaO2% (BldA) [Mass fraction]96 %Shantel Yeesandra SURVIVAL EQUIPMENT REPAIRER Work Phone: 1(106)[address] [place], [place] 1206109-16-2025 14:23-0400 Systolic blood mm[Hg]Shantel Corralzara SURVIVAL EQUIPMENT REPAIRER Work Phone: 1(627)[address] [place], [place] 1206109-09-2025 13:32-0400 Body zmurcw055.18 cmShantel Corralrbacher SURVIVAL EQUIPMENT REPAIRER Work Phone: 1(052)[address] [place], [place] 1206109-09-2025 13:32-0400 Body mass index (BMI) [Ratio]30.5 kg/a3StkftkkpShantel Corralrbacher SURVIVAL EQUIPMENT REPAIRER Work Phone: 1(666)[address]09-09-2025 13:32-0400 Body aqvjrd42.5 kgShantel Corralrbacher SURVIVAL EQUIPMENT REPAIRER Work Phone: [facility]09-09-2025 13:32-0400 Diastolic blood ubsjnqsv25 mm[Hg]Shantel Corralzara SURVIVAL EQUIPMENT REPAIRER Work Phone: [facility]09-09-2025 13:32-0400 Heart rate79 /minShantel Ramirezacher SURVIVAL EQUIPMENT REPAIRER Work Phone: [facility]09-09-2025 13:32-0400 Respiratory rate18 /minShantel Ramirezacher SURVIVAL EQUIPMENT REPAIRER Work Phone: 1(857)985-39[facility]09-09-2025 13:32-0400 SaO2% (BldA) [Mass fraction]96 %Shantel Corralzara SURVIVAL EQUIPMENT REPAIRER Work Phone: [facility]09-09-2025 13:32-0400 Systolic blood wralxijy989 mm[Hg]Shantel Cierra SURVIVAL EQUIPMENT REPAIRER Work Phone: [facility]09-03-2025 13:47-0400 Body .2 cmRoland Faust MD Work Phone: [address] [place], [place] 7841909-03-2025 13:47-0400 Body mass index (BMI) [Ratio]30.85 kg/y3HagtdypRoland Faust MD Work Phone: 1(310)066-05[facility]09-03-2025 13:47-0400 Body ysjucv30.36 kgRoland Faust MD Work Phone: [facility]09-03-2025 13:47-0400 Diastolic blood ixdwavkj64 mm[Hg]Roland Faust MD Work Phone: 1(148)914-[address] [place], [place] 3740609-03-2025 13:47-0400 Heart rate62 /Luz Faust MD Work Phone: 0(642)654-[address] [place], [place] 3740609-03-2025 13:47-0400 Systolic blood dxllavnd251 mm[Hg]Roland Faust MD Work Phone: [facility]08-19-2025 13:52-0400 Body .18 cmGloria Keita DO Work Phone: 1(218)[address] [place], [place] 6019208-19-2025 13:52-0400 Body mass index (BMI) [Ratio]30.7 kg/e4Vvggxj Keita DO Work Phone: 1(380)[address] [place], [place] 6019208-19-2025 13:52-0400 Body scucwhabvkv32.4 [degF]Sandra Debbie DO Work Phone: 1(061)[address] [place], [place] 6019208-19-2025 13:52-0400 Body .9 kgGloria Keita DO Work Phone: 1(546)[address] [place], [place] 6019208-19-2025 13:52-0400 Diastolic blood zixtgyjq68 mm[Hg]Sandra Keita DO Work Phone: 1(364)[address] [place], [place] 6019208-19-2025 13:52-0400 Heart rate79 /minGloria Keita DO Work Phone: 1(559)[address] [place], [place] 6019208-19-2025 13:52-0400 SaO2% (BldA) [Mass fraction]98 %Sandra Debbie DO Work Phone: 1(614)[address] [place], [place] 6019208-19-2025 13:52-0400 Systolic blood xaoccgvf91 mm[Hg]Sandra Keita DO Work Phone: 1(875)[address] [place], [place] 6019206-10-2025 13:57-0400 Body uhavki146.2 cmOz Kincaid MD Work Phone: [facility] HospitalSbpvdzrmzz39-04-0769 13:57-0400Body mass index (BMI) [Ratio]31.48 kg/m2Oz Kincaid MD Work Phone: [facility] HospitalGembpgbxia50-44-5134 13:57-0400Body lsordk62.17 kgOz Kincaid MD Work Phone: [facility] HospitalNbfjuxmxfi73-75-0782 14:59-0400Body mvrvui486.18 cmGloria Keita DO Work Phone: 1(066)[address] [place], [place] 6019206-05-2025 14:59-0400 Body mass index (BMI) [Ratio]31.4 kg/d1Hnihvx Keita DO Work Phone: 1(339)[address] [place], [place] 6019206-05-2025 14:59-0400 Body jhsyno39.17 kgGloria Keita DO Work Phone: 1(578)[address] [place], [place] 6019206-05-2025 14:59-0400 Diastolic blood vqhvzefi78 mm[Hg]Sandra Keita DO Work Phone: 1(921)[address] [place], [place] 6019206-05-2025 14:59-0400 Heart rate65 /minGloria Keita DO Work Phone: 1(290)[address] [place], [place] 6019206-05-2025 14:59-0400 SaO2% (BldA) [Mass fraction]95 %Sandra Keita DO Work Phone: 1(491)[address] [place], [place] 6019206-05-2025 14:59-0400 Systolic blood duzknqvk20 mm[Hg]Sandra Keita DO Work Phone: 1(465)[address] [place], [place] 6019205-15-2025 13:30-0400 Diastolic blood ozfyduge52 mm[Hg]Sandra Keita DO Work Phone: 1(533)[address] [place], [place] 6019205-15-2025 13:30-0400 Heart rate79 /minGloria Keita DO Work Phone: 1(669)[address] [place], [place] 6019205-15-2025 13:30-0400 Respiratory rate16 /minGloria Keita DO Work Phone: 1(651)[address] [place], [place] 6019205-15-2025 13:30-0400 SaO2% (BldA) [Mass fraction]95 %Sandra Keita DO Work Phone: 1(437)[address] [place], [place] 6019205-15-2025 13:30-0400 Systolic blood uslknvlg023 mm[Hg]Sandra Keita DO Work Phone: 1(462)[address] [place], [place] 6019205-15-2025 13:00-0400 Inhaled oxygen flow rate2 L/minGloria Keita DO Work Phone: 1(382)[address] [place], [place] 6019205-15-2025 11:07-0400 Body qapzho109.18 cmGloria Keita DO Work Phone: 1(736)[address] [place], [place] 6019205-15-2025 11:07-0400 Body .71 kgGloria Keita DO Work Phone: 1(124)[address] [place], [place] 6019205-12-2025 11:06-0400 Diastolic blood klbfqjih36 mm[Hg]Sandra Keita DO Work Phone: 1(246)[address] [place], [place] 6019205-12-2025 11:06-0400 Systolic blood aholbnkh886 mm[Hg]Sandra Keita DO Work Phone: 1(227)[address] [place], [place] 6019204-29-2025 13:37-0400 Body nlkejn108.18 cmGloria Keita DO Work Phone: 1(173)[address] [place], [place] 6019204-29-2025 13:37-0400 Body mass index (BMI) [Ratio]31.8 kg/g0Hypfii Keita DO Work Phone: 1(188)[address] [place], [place] 6019204-29-2025 13:37-0400 Body vfogcn99.16 kgGloria Keita DO Work Phone: 1(832)[address] [place], [place] 6019204-29-2025 13:37-0400 Diastolic blood ukcpemns28 mm[Hg]Sandra Keita DO Work Phone: 1(101)[address] [place], [place] 6019204-29-2025 13:37-0400 Heart rate71 /minGloria Keita DO Work Phone: 1(079)[address] [place], [place] 6019204-29-2025 13:37-0400 Respiratory rate18 /minGloria Keita DO Work Phone: 1(501)[address] [place], [place] 6019204-29-2025 13:37-0400 SaO2% (BldA) [Mass fraction]96 %Sandra Keita DO Work Phone: 1(686)[address] [place], [place] 6019204-29-2025 13:37-0400 Systolic blood fbqgduzs157 mm[Hg]Sandra Keita DO Work Phone: 1(821)[address] [place], [place] 6019204-24-2025 10:03-0400 Body njallo942.18 cmGloria Keita DO Work Phone: 1(919)[address] [place], [place] 6019204-24-2025 10:03-0400 Body mass index (BMI) [Ratio]32.2 kg/n9Eplqfs Keita DO Work Phone: 1(421)[address] [place], [place] 6019204-24-2025 10:03-0400 Body .3 kgGloria Keita DO Work Phone: 1(014)[address] [place], [place] 6019204-24-2025 10:03-0400 Diastolic blood qswhopfg73 mm[Hg]Sandra Keita DO Work Phone: 1(289)[address] [place], [place] 6019204-24-2025 10:03-0400 Heart rate64 /minGloria Keita DO Work Phone: 1(063)[address] [place], [place] 6019204-24-2025 10:03-0400 Respiratory rate18 /minGloria Keita DO Work Phone: 1(900)[address] [place], [place] 6019204-24-2025 10:03-0400 SaO2% (BldA) [Mass fraction]94 %Sandra Keita DO Work Phone: 1(675)[address] [place], [place] 6019204-24-2025 10:03-0400 Systolic blood omftvixt442 mm[Hg]Sandra Keita DO Work Phone: 1(427)[address] [place], [place] 6019203-26-2025 11:19-0400 Body awysnq338.18 cmGloria Keita DO Work Phone: 1(138)[address] [place], [place] 6019203-26-2025 11:19-0400 Body mass index (BMI) [Ratio]31.3 kg/h1Ciobti Keita DO Work Phone: 1(700)[facility] [place], [place] 5644003-26-2025 11:19-0400 Body sznzsepaawt62.2 [degF]Sandra Keita DO Work Phone: 1(227)[address] [place], [place] 6019203-26-2025 11:19-0400 Body apkapd86.71 kgGloria Keita DO Work Phone: 1(417)[address] [place], [place] 6019203-26-2025 11:19-0400 Diastolic blood tcgxuupe99 mm[Hg]Sandra Keita DO Work Phone: 1(263)[address] [place], [place] 6019203-26-2025 11:19-0400 Heart rate72 /minGloria Keita DO Work Phone: 1(178)[address] [place], [place] 6019203-26-2025 11:19-0400 Respiratory rate16 /minGloria Keita DO Work Phone: 1(342)[address] [place], [place] 6019203-26-2025 11:19-0400 SaO2% (BldA) [Mass fraction]98 %Sandra Keita DO Work Phone: 1(970)[address] [place], [place] 6019203-26-2025 11:19-0400 Systolic blood gnheqkhh422 mm[Hg]Sandra Keita DO Work Phone: 1(614)[address] [place], [place] 6019203-25-2025 14:48-0400 Body yllboj893.2 cmOz Kincaid MD Work Phone: [facility] HospitalKjergwgqop93-98-0602 14:48-0400Body mass index (BMI) [Ratio]31.32 kg/m2Oz Kincaid MD Work Phone: [facility] HospitalMworbuhynv81-69-8756 14:48-0400Body vtwzuf08.72 kgOz Kincaid MD Work Phone: [facility] HospitalQdrpehnlsr62-54-5624 09:46-0500Body sykiyo957.2 cmRoland Faust MD Work Phone: [facility]02-28-2025 09:46-0500 Body mass index (BMI) [Ratio]32.51 kg/l6NqxdysgRoland Faust MD Work Phone: 1(863)960-[address] [place], [place] 3740602-28-2025 09:46-0500 Body .17 kgRoland Faust MD Work Phone: 1(215)[address]02-28-2025 09:46-0500 Diastolic blood negnhmid21 mm[Hg]Roland Fauts MD Work Phone: 1(561)[address] [place], [place] 3740602-28-2025 09:46-0500 Heart rate62 /minRoland Faust MD Work Phone: 1(667)[address]02-28-2025 09:46-0500 Systolic blood dhpzkrny553 mm[Hg]Roland Faust MD Work Phone: 1(863)219-[address] [place], [place] 3740601-09-2025 13:07-0500 Body gugpcv819.18 cmGloria Keita DO Work Phone: 1(689)[address] [place], [place] 6019201-09-2025 13:07-0500 Body mass index (BMI) [Ratio]32.9 kg/t9Ibtxgd Keita DO Work Phone: 1(725)[address] [place], [place] 6019201-09-2025 13:07-0500 Body fouukg96.3 kgGloria Keita DO Work Phone: 1(048)[address] [place], [place] 6019201-09-2025 13:07-0500 Diastolic blood bzianjcg04 mm[Hg]Sandra Keita DO Work Phone: 1(076)[address] [place], [place] 6019201-09-2025 13:07-0500 Heart rate64 /minGloria Keita DO Work Phone: 1(989)[address] [place], [place] 6019201-09-2025 13:07-0500 Respiratory rate18 /minGloria Keita DO Work Phone: 1(752)[address] [place], [place] 6019201-09-2025 13:07-0500 SaO2% (BldA) [Mass fraction]97 %Sandra Keita DO Work Phone: 1(179)[address] [place], [place] 6019201-09-2025 13:07-0500 Systolic blood porzkpmr55 mm[Hg]Sandra Keita DO Work Phone: 1(441)[address] [place], [place] 6019201-02-2025 08:25-0500 Body alyjukjtxnz75.8 [degF]Sandra Keita DO Work Phone: 1(309)[address] [place], [place] 6019201-02-2025 08:25-0500 Diastolic blood odehhwhd00 mm[Hg]Sandra Keita DO Work Phone: 1(723)[address] [place], [place] 6019201-02-2025 08:25-0500 Heart rate64 /minGloria Keita DO Work Phone: 1(331)[address] [place], [place] 6019201-02-2025 08:25-0500 Respiratory rate18 /minGloria Keita DO Work Phone: 1(488)[address] [place], [place] 6019201-02-2025 08:25-0500 SaO2% (BldA) [Mass fraction]96 %Sandra Keita DO Work Phone: 1(846)[address] [place], [place] 6019201-02-2025 08:25-0500 Systolic blood hdayuzcb000 mm[Hg]Sandra Keita DO Work Phone: 1(273)[address] [place], [place] 6019201-02-2025 05:12-0500 Body fmhspu92.2 kgGloria Keita DO Work Phone: 1(869)[address] [place], [place] 6019212-31-2024 23:40-0500 Body galiti792.18 cmGloria Keita DO Work Phone: 1(510)[address] [place], [place] 6019212-31-2024 23:19-0500 Diastolic blood vjudglbv27 mm[Hg]Sandra Keita DO Work Phone: 1(384)[address] [place], [place] 6019212-31-2024 23:19-0500 Heart rate72 /minGloria Keita DO Work Phone: 1(790)[address] [place], [place] 6019212-31-2024 23:19-0500 Respiratory rate18 /minGloria Keita DO Work Phone: 1(625)[address] [place], [place] 6019212-31-2024 23:19-0500 SaO2% (BldA) [Mass fraction]98 %Sandra Keita DO Work Phone: 1(425)[address] [place], [place] 6019212-31-2024 23:19-0500 Systolic blood cyewyqlj136 mm[Hg]Sanrda Keita DO Work Phone: 1(864)[address] [place], [place] 6019212-31-2024 19:39-0500 Body .18 cmGloria Keita DO Work Phone: 1(248)[address] [place], [place] 6019212-31-2024 19:39-0500 Body prhqqiheebe07.1 [degF]Sandra Keita DO Work Phone: 1(101)[address] [place], [place] 6019212-31-2024 19:39-0500 Body fnevnw30.4 kgGloria Keita DO Work Phone: 1(340)[address] [place], [place] 6019212-31-2024 11:35-0500 Body .18 cmGloria Keita DO Work Phone: 1(456)[address] [place], [place] 6019212-31-2024 11:35-0500 Body mass index (BMI) [Ratio]32.5 kg/b3Trpwgr Keita DO Work Phone: 1(340)[address] [place], [place] 6019212-31-2024 11:35-0500 Body uolwpk31.34 kgGloria Keita DO Work Phone: 1(842)[address] [place], [place] 6019212-31-2024 11:35-0500 Diastolic blood rsozjpxp44 mm[Hg]Sandra Keita DO Work Phone: 1(624)[address] [place], [place] 6019212-31-2024 11:35-0500 Heart rate71 /minGloria Keita DO Work Phone: 1(924)[address] [place], [place] 6019212-31-2024 11:35-0500 Respiratory rate18 /minGloria Keita DO Work Phone: 1(889)[address] [place], [place] 6019212-31-2024 11:35-0500 SaO2% (BldA) [Mass fraction]94 %Sandra Keita DO Work Phone: 1(492)[address] [place], [place] 6019212-31-2024 11:35-0500 Systolic blood fminpkvb02 mm[Hg]Sandra Keita DO Work Phone: 1(198)[address] [place], [place] 6019212-31-2024 10:15-0500 Body fxzyvk312.18 cmGloria Keita DO Work Phone: 1(253)[address] [place], [place] 6019212-31-2024 10:15-0500 Body mass index (BMI) [Ratio]32.7 kg/y8Sxvfop Keita DO Work Phone: 1(026)[address] [place], [place] 6019212-31-2024 10:15-0500 Body ahuwdbqmtyo86.9 [degF]Sandra Debbie DO Work Phone: 1(480)[address] [place], [place] 6019212-31-2024 10:15-0500 Body .8 kgGloria Keita DO Work Phone: 1(231)[address] [place], [place] 6019212-31-2024 10:15-0500 Diastolic blood tokhracq06 mm[Hg]Sandra Keita DO Work Phone: 1(905)[address] [place], [place] 6019212-31-2024 10:15-0500 Heart rate70 /minGloria Keita DO Work Phone: 1(277)[address] [place], [place] 6019212-31-2024 10:15-0500 Respiratory rate16 /minGloria Keita DO Work Phone: 1(166)[address] [place], [place] 6019212-31-2024 10:15-0500 SaO2% (BldA) [Mass fraction]96 %Sandra Keita DO Work Phone: 1(354)[address] [place], [place] 6019212-31-2024 10:15-0500 Systolic blood kaiukfjt34 mm[Hg]Sandra Keita DO Work Phone: 1(777)[address] [place], [place] 6019212-30-2024 14:29-0500 Body mospdz986.18 cmGloria Keita DO Work Phone: 1(650)[address] [place], [place] 6019212-30-2024 14:29-0500 Body rujxzlpefyk27 [degF]Sandra Keita DO Work Phone: 1(422)[address] [place], [place] 6019212-30-2024 14:29-0500 Body yqldnx10.71 kgGloria Ketia DO Work Phone: 1(584)[address] [place], [place] 6019212-30-2024 14:29-0500 Diastolic blood hkfmvrow57 mm[Hg]Sandra Keita DO Work Phone: 1(178)[address] [place], [place] 6019212-30-2024 14:29-0500 Heart rate80 /minGloria Keita DO Work Phone: 1(219)[address] [place], [place] 6019212-30-2024 14:29-0500 Respiratory rate18 /minGloria Keita DO Work Phone: 1(575)[address] [place], [place] 6019212-30-2024 14:29-0500 SaO2% (BldA) [Mass fraction]93 %Sandra Keita DO Work Phone: 1(550)[address] [place], [place] 6019212-30-2024 14:29-0500 Systolic blood mpymgnap547 mm[Hg]Sandra Keita DO Work Phone: 1(423)[address] [place], [place] 6019212-17-2024 09:35-0500 Body ceertp557.18 cmGloria Keita DO Work Phone: 1(156)[address] [place], [place] 6019212-17-2024 09:35-0500 Body mass index (BMI) [Ratio]32.1 kg/p2Tpixug Keita DO Work Phone: 1(416)[address] [place], [place] 6019212-17-2024 09:35-0500 Body lfkqtjyfbco29 [degF]Sandra Keita DO Work Phone: 1(283)[address] [place], [place] 6019212-17-2024 09:35-0500 Body fjgeen38.98 kgGloria Keita DO Work Phone: 1(713)0-[address] [place], [place] 5644012-17-2024 09:35-0500 Diastolic blood ocyrvmnx96 mm[Hg]Sandra Debbie DO Work Phone: 1(935)[address] [place], [place] 6019212-17-2024 09:35-0500 Heart rate78 /minGloria Keita DO Work Phone: 1(807)[address] [place], [place] 6019212-17-2024 09:35-0500 Respiratory rate20 /minGloria Keita DO Work Phone: 1(306)[address] [place], [place] 6019212-17-2024 09:35-0500 SaO2% (BldA) [Mass fraction]98 %Sandra Debbie DO Work Phone: 1(551)[address] [place], [place] 6019212-17-2024 09:35-0500 Systolic blood mm[Hg]Sandra Debbie DO Work Phone: 1(849)[address] [place], [place] 6019212-10-2024 13:26-0500 Body ngiqpu854.2 cmOz Kincaid MD Work Phone: 2(030)[address]12-10-2024 13:26-0500Body mass index (BMI) [Ratio]31.32 kg/m2Oz Kincaid MD Work Phone: 1(259)187-[address] [place], [place] [address]Mjljnnhtse86-45-6389 13:26-0500Body kaiadn04.72 kgOz Kincaid MD Work Phone: 7(749)[address]11-27-2024 13:42-0500Body prmwuo230.2 cmRoland Faust MD Work Phone: [facility]11-27-2024 13:42-0500 Body mass index (BMI) [Ratio]32.58 kg/f9JhsyqojRoland Faust MD Work Phone: [facility]11-27-2024 13:42-0500 Body .35 kgRoland Faust MD Work Phone: [address] [place], [place] 7841911-27-2024 13:42-0500 Diastolic blood npytlrbo28 mm[Hg]Roland Faust MD Work Phone: [facility]11-27-2024 13:42-0500 Heart rate63 /minRoland Faust MD Work Phone: [facility]11-27-2024 13:42-0500 Systolic blood mm[Hg]Roland Faust MD Work Phone: [facility]10-29-2024 13:55-0400 Body .2 cmOz Kincaid MD Work Phone: 4(025)[address]10-29-2024 13:55-0400Body mass index (BMI) [Ratio]31.32 kg/m2Oz Kincaid MD Work Phone: 6(865)[address] [place], [place] 1211710-29-2024 13:55-0400Body hjcuua47.72 kgOz Kincaid MD Work Phone: 1(176)[address] [place], [place] 1211710-29-2024 13:55-0400Diastolic blood mm[Hg]Oz Kincaid MD Work Phone: 0(348)[address]10-29-2024 13:55-0400Heart rate74 /min Oz Kincaid MD Work Phone: 0(933)114-[address] [place], [place] [address]Ydrigifbcl17-82-6777 13:55-0400Systolic blood cgjhngwu553 mm[Hg]Oz Kincaid MD Work Phone: 3(152)[address] [place], [place] 1211710-18-2024 13:23-0400Body teysnp007.18 cmGloria Keita DO Work Phone: [facility]10-18-2024 13:23-0400 Body avtpza63.71 kgGloria Keita DO Work Phone: [facility]10-07-2024 11:56-0400 Body .18 cmDO Sandra Keita Work Phone: [facility]10-07-2024 11:56-0400 Body mass index (BMI) [Ratio]31.6 kg/m2DO Sandra Keita Work Phone: 1(473)[address] [place], [place] 6019210-07-2024 11:56-0400 Body dyjkuk10.62 kgDO Sandra Keita Work Phone: 1(555)[address] [place], [place] 6019210-07-2024 11:56-0400 Diastolic blood ztxtsoac37 mm[Hg]DO Sandra Keita Work Phone: 1(017)[address] [place], [place] 6019210-07-2024 11:56-0400 Heart rate63 /minDO Sandra Keita Work Phone: 1(918)[address] [place], [place] 6019210-07-2024 11:56-0400 Respiratory rate18 /minDO Sandra Keita Work Phone: 1(533)[address] [place], [place] 6019210-07-2024 11:56-0400 SaO2% (BldA) [Mass fraction]98 %DO Sandra Keita Work Phone: 1(405)[address] [place], [place] 6019210-07-2024 11:56-0400 Systolic blood ipufcdhu786 mm[Hg]DO Sandra Keita Work Phone: 1(080)[address] [place], [place] 6019209-18-2024 15:38-0400 Body zadwba694.18 cmDO Sandra Keita Work Phone: 1(914)[address] [place], [place] 6019209-18-2024 15:38-0400 Body mass index (BMI) [Ratio]31.3 kg/m2DO Sandra Keita Work Phone: 1(481)[address] [place], [place] 6019209-18-2024 15:38-0400 Body rauzjr08.77 kgDO Sandra Keita Work Phone: 1(286)[address] [place], [place] 6019209-10-2024 13:18-0400 Body cjnsyj782.2 cmOz Kincaid MD [facility] Phone: [facility]1257 13:18-0400Body mass index (BMI) [Ratio]31.32 kg/m2Oz Kincaid MD Work Phone: [facility]mq[facility]hp23-24-3613 13:18-0400Body afejme55.72 kgOz Kincaid MD Work Phone: [facility] HospitalTbcrgnnbxx18-57-0297 13:18-0400Diastolic blood ysdhzomi36 mm[Hg]Oz Kincaid MD Work Phone: [facility] HospitalRuzdzfhdvw20-61-6229 13:18-0400Heart rate62 /min Oz Kincaid MD Work Phone: [facility] HospitalKjjjvhpmyr38-22-4966 13:18-0400Systolic blood fryfwbcv478 mm[Hg]Oz Kincaid MD Work Phone: [facility] HospitalQsgfywrlgs85-10-1518 10:40-0400Body ozqarm888.2 cmRoland Faust MD Work Phone: 1(291)615-83[facility]08-19-2024 10:40-0400 Body mass index (BMI) [Ratio]30.48 kg/e8UodksrwRoland Faust MD Work Phone: 1(170)129-[address] [place], [place] 3740608-19-2024 10:40-0400 Body irmllq92.27 kgRoland Faust MD Work Phone: 1(129)[address]08-19-2024 10:40-0400 Diastolic blood mm[Hg]Roland Faust MD Work Phone: 1(430)008-[address] [place], [place] 3740608-19-2024 10:40-0400 Heart rate73 /minRoland Faust MD Work Phone: 6(281)962-[address] [place], [place] 3740608-19-2024 10:40-0400 Systolic blood mm[Hg]Roland Faust MD Work Phone: [address] [place], [place] 7841907-22-2024 13:14-0400 Body .18 cmDO Sandra Keita Work Phone: [facility]07-22-2024 13:14-0400 Body mass index (BMI) [Ratio]28.6 kg/m2DO Sandrarebecca Keita Work Phone: 1(327)[address] [place], [place] 6019207-22-2024 13:14-0400 Body kgDO Sandra Debbie Work Phone: 1(778)[address] [place], [place] 6019207-22-2024 13:14-0400 Diastolic blood awsyacpt66 mm[Hg]DO Sandra Debbie Work Phone: 1(184)[address] [place], [place] 6019207-22-2024 13:14-0400 Heart rate54 /minDO Sandra Keita Work Phone: 1(672)[address] [place], [place] 6019207-22-2024 13:14-0400 Respiratory rate18 /minDO Sandra Debbie Work Phone: 1(974)[address] [place], [place] 6019207-22-2024 13:14-0400 SaO2% (BldA) [Mass fraction]97 %DO Sandra Keita Work Phone: 1(593)[address] [place], [place] 6019207-22-2024 13:14-0400 Systolic blood iugeomor85 mm[Hg]DO Sandrarebecca Keita Work Phone: 1(919)[address] [place], [place] 6019207-18-2024 15:07-0400 Body nzydbx447.18 cmDO Sandra Keita Work Phone: 1(325)[address] [place], [place] 6019207-18-2024 15:07-0400 Body mass index (BMI) [Ratio]28.5 kg/m2DO Sandrarebecca Keita Work Phone: 1(559)[address] [place], [place] 6019207-18-2024 15:07-0400 Body rfmnco46.8 kgDO Sandrarebecca Keita Work Phone: 1(303)[address] [place], [place] 6019207-18-2024 15:07-0400 Diastolic blood xyqopmjz48 mm[Hg]DO Sandra Debbie Work Phone: 1(030)[address] [place], [place] 6019207-18-2024 15:07-0400 Heart rate67 /minDO Sandra Keita Work Phone: [facility]07-18-2024 15:07-0400 Respiratory rate18 /minDO Sandra Keita Work Phone: [facility]07-18-2024 15:07-0400 SaO2% (BldA) [Mass fraction]97 %DO Sandra Debbie Work Phone: [facility]07-18-2024 15:07-0400 Systolic blood snunxyek288 mm[Hg]DO Sandra Debbie Work Phone: [facility]07-17-2024 13:54-0400 Body xzbivi913.2 cmJonas Ch MD Work Phone: [facility]07-17-2024 13:54-0400 Body mass index (BMI) [Ratio]28.19 kg/z1FxndjbqJonas Ch MD Work Phone: [facility]07-17-2024 13:54-0400 Body .65 kgJonas Ch MD Work Phone: [address] [place], [place] [address]841907-17-2024 13:54-0400 Diastolic blood mm[Hg]Jonas Ch MD Work Phone: [facility]07-17-2024 13:54-0400 Heart rate87 /minJonas Ch MD Work Phone: [facility]07-17-2024 13:54-0400 Systolic blood mhrfnafi255 mm[Hg]Jonas Ch MD Work Phone: [address] [place], [place] 7841907-16-2024 16:12-0400 Diastolic blood idenrvbo36 mm[Hg]DO Sandra Keita Work Phone: [facility]07-16-2024 16:12-0400 Heart rate61 /minDO Sandrarebecca Keita Work Phone: 1(556)177-[address] [place], [place] 5644007-16-2024 16:12-0400 Respiratory rate16 /minDO Sandra Debbie Work Phone: 1(137)[address] [place], [place] 6019207-16-2024 16:12-0400 SaO2% (BldA) [Mass fraction]96 %DO Sandra Debbie Work Phone: 1(736)[address] [place], [place] 6019207-16-2024 16:12-0400 Systolic blood mysvwqbb946 mm[Hg]DO Sandra Debbie Work Phone: 1(469)[address] [place], [place] 6019207-16-2024 12:16-0400 Body ebbukegolva36.5 [degF]DO Sandra Debbie Work Phone: 1(093)[address] [place], [place] 6019207-16-2024 06:00-0400 Body qyfaca67.5 kgDO Sandrarebecca Keita Work Phone: 1(064)[address] [place], [place] 6019207-14-2024 08:23-0400 Body mywvaw347.18 cmDO Sandrarebecca Keita Work Phone: 1(257)[address] [place], [place] 6019207-14-2024 05:05-0400 Diastolic blood spjnyjnm00 mm[Hg]DO Sandra Debbie Work Phone: 1(664)[address] [place], [place] 6019207-14-2024 05:05-0400 Heart rate62 /minDO Sandra Debbie Work Phone: 1(097)[address] [place], [place] 6019207-14-2024 05:05-0400 Respiratory rate18 /minDO Sandra Debbie Work Phone: 1(614)[address] [place], [place] 6019207-14-2024 05:05-0400 SaO2% (BldA) [Mass fraction]100 %DO Sandra Debbie Work Phone: 1(938)[address] [place], [place] 6019207-14-2024 05:05-0400 Systolic blood qfkvzehg287 mm[Hg]DO Sandra Debbie Work Phone: 1(771)[address] [place], [place] 6019207-14-2024 03:44-0400 Body .1 [degF]DO Sandra Keita Work Phone: 1(496)833-[address] [place], [place] 5644007-13-2024 22:16-0400 Body nezugl801.18 cmDO Sandra Keita Work Phone: 1(861)[address]07-13-2024 22:16-0400 Body .64 kgDO Sandra Keita Work Phone: 1(993)[address] [place], [place] 6019207-09-2024 12:36-0400 SaO2% (BldA) [Mass fraction]100 %DO Sandra Keita Work Phone: 1(712)[address]06-10-2024 09:48-0400 Body dweaev455.2 cmJonas Ch MD Work Phone: 8(589)[address]06-10-2024 09:48-0400 Body mass index (BMI) [Ratio]28.19 kg/y8XeyijutJonas Ch MD Work Phone: 1(727)510-[address] [place], [place] 3740606-10-2024 09:48-0400 Body .65 kgJonas Ch MD Work Phone: 1(790)637-[address] [place], [place] 3740606-10-2024 09:48-0400 Diastolic blood mm[Hg]Jonas Ch MD Work Phone: 3(287)901-[address] [place], [place] 3740606-10-2024 09:48-0400 Heart rate92 /minJonas Ch MD Work Phone: 1(967)170-[address] [place], [place] 3740606-10-2024 09:48-0400 Systolic blood pyvawoja029 mm[Hg]Jonas Ch MD Work Phone: 1(314)[address]05-21-2024 13:02-0400 Body bieuao303.64 cmDO Sandrarebecca Keita Work Phone: 1(987)347-[address] [place], [place] 5644005-21-2024 13:02-0400 Body mass index (BMI) [Ratio]29 kg/m2DO Sandrarebecca Keita Work Phone: 1(850)[address] [place], [place] 6019205-21-2024 13:02-0400 Body rtylhp96.67 kgDO Sandrarebecca Keita Work Phone: 1(705)[address] [place], [place] 6019205-21-2024 13:02-0400 Diastolic blood mejetnba99 mm[Hg]DO Sandra Debbie Work Phone: 1(222)[address] [place], [place] 6019205-21-2024 13:02-0400 Heart qung077 /minDO Sandra Keita Work Phone: 1(486)[address] [place], [place] 6019205-21-2024 13:02-0400 Respiratory rate18 /minDO Sandra Debbie Work Phone: 1(222)[address] [place], [place] 6019205-21-2024 13:02-0400 SaO2% (BldA) [Mass fraction]99 %DO Sandrarebecca Keita Work Phone: 1(194)[address] [place], [place] 6019205-21-2024 13:02-0400 Systolic blood bkmyeelk13 mm[Hg]DO Sandrarebecca Keita Work Phone: 1(646)[address] [place], [place] 6019205-18-2024 16:11-0400 Body cjpwlbjexbc10.7 [degF]DO Sandrarebecca Keita Work Phone: 1(733)[address] [place], [place] 6019205-18-2024 16:11-0400 Diastolic blood oocwzigu92 mm[Hg]DO Sandrarebecca Keita Work Phone: 1(137)[address] [place], [place] 6019205-18-2024 16:11-0400 Heart rate74 /minDO Sandra Kieta Work Phone: 1(027)[address] [place], [place] 6019205-18-2024 16:11-0400 Respiratory rate17 /minDO Sandra Debbie Work Phone: 1(853)[address] [place], [place] 6019205-18-2024 16:11-0400 SaO2% (BldA) [Mass fraction]95 %DO Sandra Debbie Work Phone: 1(584)[address] [place], [place] 6019205-18-2024 16:11-0400 Systolic blood anvlzprl781 mm[Hg]DO Sandra Keita Work Phone: 1(198)[address] [place], [place] 6019205-18-2024 06:00-0400 Body .2 kgDO Sandrarebecca Keita Work Phone: 1(527)[address] [place], [place] 6019205-17-2024 12:41-0400 Body kjejas217.18 cmDO Sandra Keita Work Phone: 1(125)[address] [place], [place] 6019205-16-2024 13:58-0400 Body ofzfva983.64 cmDO Sandrarebecca Keita Work Phone: 1(757)[address] [place], [place] 6019205-16-2024 13:58-0400 Body mass index (BMI) [Ratio]29 kg/m2DO Sandra Keita Work Phone: 1(897)[address] [place], [place] 6019205-16-2024 13:58-0400 Body rqloip59.64 kgDO Sandra Keita Work Phone: 1(978)[address] [place], [place] 6019205-16-2024 13:58-0400 Diastolic blood wltdqgyi58 mm[Hg]DO Sandra Keita Work Phone: 1(513)[address] [place], [place] 6019205-16-2024 13:58-0400 Heart quny813 /minDO Sandra Debbie Work Phone: 1(345)[address] [place], [place] 6019205-16-2024 13:58-0400 Respiratory rate18 /minDO Sandra Debbie Work Phone: 1(472)[address] [place], [place] 6019205-16-2024 13:58-0400 SaO2% (BldA) [Mass fraction]97 %DO Sandra Keita Work Phone: 1(680)[address] [place], [place] 6019205-16-2024 13:58-0400 Systolic blood devsfhdi477 mm[Hg]DO Sandrarebecca Keita Work Phone: 1(298)[address] [place], [place] 6019203-20-2024 11:43-0400 Body kkvlse545.64 [facility] 11:43-0400Body mass index (BMI) [Ratio]28.8 kg/b5QyfczdwcxDiley [facility] Center03-20-2024 11:43-0400Body gmntjnajbap18.8 [degF][facility]03-20-2024 11:43-0400Body .19 kgD[facility]03-20-2024 11:43-0400Diastolic blood pkfnvuwi74 mm[Hg][facility] 07-17-2023 11:43-0400Heart rate78 /[facility] 07-17-2023 11:43-0400Respiratory rate16 /[facility] 07-17-2023 11:43-7443FoD3% (BldA) [Mass fraction]98 %[facility]03-20-2024 11:43-0400Systolic blood mm[Hg][facility]02-21-2024 15:53-0500Body ygoyfr425.64 cmD[facility]02-21-2024 15:53-0500Body mass index (BMI) [Ratio]28.9 kg/m2 [facility]02-21-2024 15:53-0500Body .33 kg [facility]02-21-2024 15:53-0500Diastolic blood kafurbrj12 mm[Hg][facility]02-21-2024 15:53-0500Heart rate95 /min [facility]02-21-2024 15:53-0500Respiratory rate18 /min [facility]02-21-2024 15:53-3646AjT1% (BldA) [Mass fraction]97 %[facility]02-21-2024 15:53-0500Systolic blood whfhofgb88 mm[Hg][facility]02-14-2024 15:38-0500 Body lcnpoz030.64 cmD[facility] Center02-14-2024 15:38-0500Body mass index (BMI) [Ratio]28.5 kg/i7XepesahpxDiley Ridge Medical Center02-14-2024 15:38-0500Body womrqj97.28 kgD[facility] Center02-14-2024 15:38-0500Diastolic blood rrvewezi53 mm[Hg][facility] 06-12-2023 15:38-0500Heart rate95 /[facility] 06-12-2023 15:38-0500Respiratory rate18 /[facility] 06-12-2023 15:38-3549VpW4% (BldA) [Mass fraction]99 %[facility]02-14-2024 15:38-0500Systolic blood gdacfdng822 mm[Hg][facility]11-06-2023 15:00-0500Body .64 cmSandra Keita Other [employer] Other 11-06-2023 15:00-0500Body mass index (BMI) [Ratio] 29.97 kg/b9ZlkrgaSandra Keita Other [employer] Other 11-06-2023 15:00-0500Body dftlmi74.23 kgSandra Keita Other [employer] Other 11-06-2023 15:00-0500Diastolic blood yxfurlus55 mm[Hg] Sandra Keita Other [employer] Other 11-06-2023 15:00-0500Respiratory rate18 /minSandra Keita Other [employer] Other 11-06-2023 15:00-5741QkU5% (BldA) [Mass fraction]96 % Sandra Keita Other [employer] Other 11-06-2023 15:00-0500Systolic blood kfznayyu60 mm[Hg] Sandra Keita Other [employer] Other 09-11-2023 14:00-0400Body piplne875.64 cmTondra Mapus Other [employer] Other 09-11-2023 14:00-0400Body mass index (BMI) [Ratio] 30.03 kg/u3Xiixne Mapus Other [employer] Other 09-11-2023 14:00-0400Body qtijep13.41 kgTondra Mapus Other [employer] Other 09-11-2023 14:00-0400Diastolic blood hugdoepu99 mm[Hg] Tondra Mapus Other [place] [employer] Other 09-11-2023 14:00-0400Respiratory rate18 /minTondra Mapus Other [facility] Other 09-11-2023 14:00-0525ZfV7% (BldA) [Mass fraction]98 % Tondra Mapus Other [employer] Other 09-11-2023 14:00-0400Systolic blood rjrvuycm973 mm[Hg] Tondra Mapus Other [employer] [employer] [facility] Other 09-06-2023 11:00-0400Body .64 Rob Noble [facility] [employer] Other 09-06-2023 11:00-0400Body mass index (BMI) [Ratio]29.7 kg/d8Rvoplxaufavian Noble Other [employer] Other 09-06-2023 11:00-0400Body ohvncd72.46 kgLafavian Noble Other [employer] Other 09-06-2023 11:00-0400Diastolic blood yxjizbin02 mm[Hg] Brayden Noble Other [employer] Other 09-06-2023 11:00-0400Systolic blood jlcumnur666 mm[Hg] Brayden Noble Other [employer] Other 08-02-2023 15:00-0400Body yvuojr230.64 cmSandra Keita Other [employer] Other 08-02-2023 15:00-0400Body mass index (BMI) [Ratio] 29.58 kg/a2UyiileSandra Keita Other [employer] Other 08-02-2023 15:00-0400Body pgclfa03.14 kgSandra Keita Other [employer] Other 08-02-2023 15:00-0400Diastolic blood wexqvxas30 mm[Hg] Sandra Keita Other [employer] Other 08-02-2023 15:00-0400Respiratory rate20 /minSandra Keita Other [employer] Other 08-02-2023 15:00-0364BkM3% (BldA) [Mass fraction]99 % Sandra Keita Other [employer] Other 08-02-2023 15:00-0400Systolic blood uggdaguy714 mm[Hg] Sandra Keita [facility] [employer] Other 06-01-2023 14:15-0400Body uoyklg181.64 cmTondra Mapus Other [facility] [employer] Other 06-01-2023 14:15-0400Body mass index (BMI) [Ratio] 29.53 kg/k8Lcmxig Map[employer] Other [employer] Other 06-01-2023 14:15-0400Body efpnka93.01 kgTondra Mapus Other [facility] [employer] Other 06-01-2023 14:15-0400Diastolic blood ushfhjpg53 mm[Hg] Tondra Mapus Other [facility] [employer] Other 06-01-2023 14:15-0400Respiratory rate18 /minTondra Mapus Other [facility] [employer] Other 06-01-2023 14:15-8880JuP4% (BldA) [Mass fraction]97 % Tondra Mapus Other [facility] [employer] Other 06-01-2023 14:15-0400Systolic blood aurzciql327 mm[Hg] Tondra Mapus Other [employer] Other 04-13-2023 16:15-0400Body lbjuyl891.64 cmGloria Keita Other [facility] [employer] Other 04-13-2023 16:15-0400Body mass index (BMI) [Ratio] 29.86 kg/o5Wmwaqbsenait Keita Other [employer] Other 04-13-2023 16:15-0400Body wzymrd73.92 kgGloria Keita Other [employer] Other 04-13-2023 16:15-0400Diastolic blood amgjwrbo29 mm[Hg] Sandra Keita Other [employer] Other 04-13-2023 16:15-0400Respiratory rate18 /minGlsenait Keita Other [employer] Other 04-13-2023 16:15-4676UlN0% (BldA) [Mass fraction]97 % Sandra Keita Other [employer] Other 04-13-2023 16:15-0400Systolic blood osanbfou837 mm[Hg] Sandra Keita Other [employer] Other 02-20-2023 15:30-0500Body iefpil041.64 cmTondra Mapus Other [employer] Other 02-20-2023 15:30-0500Body mass index (BMI) [Ratio] 35.34 kg/r2Omxjwx Mapus Other [employer] Other 02-20-2023 15:30-0500Body oefxql83.34 kgTondra Mapus Other [employer] Other 02-20-2023 15:30-0500Diastolic blood hxlaysqo08 mm[Hg] Tondra Mapus Other [employer] Other 02-20-2023 15:30-0500Respiratory rate18 /minTondra Mapus Other [employer] [facility] Other 02-20-2023 15:30-0290SiH4% (BldA) [Mass fraction]97 % Tondra Mapus Other [employer] Other 02-20-2023 15:30-0500Systolic blood oauxgxjn069 mm[Hg] Tondra Mapus Other [employer] Other 09-13-2022 14:00-0400Body wywvqb350.64 cmTondra Mapus Other [employer] Other 09-13-2022 14:00-0400Body mass index (BMI) [Ratio] 28.73 kg/f4Belqlw Mapus Other [employer] Other 09-13-2022 14:00-0400Body obaezc14.74 kgTondra Mapus Other [employer] Other 09-13-2022 14:00-0400Diastolic blood ipkboibh19 mm[Hg] Tondra Mapus Other [employer] Other 09-13-2022 14:00-0400Respiratory rate16 /minTondra Mapus Other [employer] Other 09-13-2022 14:00-7168SwV1% (BldA) [Mass fraction]97 % Tondra Mapus [facility] [employer] Other 09-13-2022 14:00-0400Systolic blood cstsewcc192 mm[Hg] Angelique Russell Other [facility] [employer] Other 08-21-2022 08:23-0400Diastolic blood gctyffrh93 mm[Hg] DO [facility]08-21-2022 08:23-0400Heart rate82 /minDO [facility]08-21-2022 08:23-0400Respiratory rate18 /minDO [facility]08-21-2022 08:23-3003LhD6% (BldA) [Mass fraction]98 %DO [facility]08-21-2022 08:23-0400Systolic blood jsdruqbn051 mm[Hg]DO [facility]08-21-2022 05:29-0400 Body pdtnup216.18 cmDO [facility] 12-17-2021 05:29-0400Body ngfwfewwqnj69.4 [degF]DO [facility]08-21-2022 05:29-0400Body fouudg12.55 kgDO [facility]08-18-2022 06:58-0400Body dwvajr127.18 cmDO [facility]08-18-2022 06:58-0400Body mass index (BMI) [Ratio]29.2 kg/m2DO [facility]08-18-2022 06:58-0400Body .8 kgDO [facility]08-17-2022 11:06-0400Body lzzpiogihfv49.7 [degF]DO [facility]08-17-2022 11:06-0400Diastolic blood abkbxrui73 mm[Hg]DO [facility] 12-13-2021 11:06-0400Heart rate88 /TahiraO [facility]-2022 11:06-0400Respiratory rate16 /minDO Tray [facility]08-17-2022 11:06-5226EuV8% (BldA) [Mass fraction]93 %DO Tray [facility]08-17-2022 11:06-0400Systolic blood uiqyaten072 mm[Hg]DO [facility]08-17-2022 08:00-0400Inhaled oxygen flow rate3 L/Evelia Tray [facility]06-16-2022 11:00-0400Body .64 cmCrispin Looney Other [employer] [employer] Other 06-16-2022 11:00-0400Body mass index (BMI) [Ratio] 29.81 kg/m2HvutxCrispin Looney Other [employer] Other 06-16-2022 11:00-0400Body .78 kgCrispin Looney Other [employer] Other 06-16-2022 11:00-0400Diastolic blood cmdpxpcy96 mm[Hg] Crispin Looney Other [employer] Other 06-16-2022 11:00-0400Respiratory rate18 /minCrispin Looney Other [employer] Other 06-16-2022 11:00-1302JjF0% (BldA) [Mass fraction]97 % Crispin Looney Other [employer] Other 06-16-2022 11:00-0400Systolic blood mm[Hg] Crispin [facility]oney Other [facility] Other 03-14-2022 14:30-0400Body pdxmay540.64 cmTondra Mapus Other [employer] [employer] Other 03-14-2022 14:30-0400Body mass index (BMI) [Ratio] 30.34 kg/j1Btrykj Mapus Other [employer] [facility] Other 03-14-2022 14:30-0400Body .28 kgTondra Mapus Other [employer] [facility] [employer] Other 03-14-2022 14:30-0400Diastolic blood xmwhayqq89 mm[Hg] Tondra Mapus Other [employer] [facility] [employer] Other 03-14-2022 14:30-0400Respiratory rate16 /minTondra Mapus Other [employer] ([place] [employer] Other 03-14-2022 14:30-8355AxA3% (BldA) [Mass fraction]97 % Tondra Mapus Other [employer] ([place] [employer] Other 03-14-2022 14:30-0400Systolic blood jjkimgxl32 mm[Hg] Tondra Mapus Other [employer] [employer] Other 03-07-2022 16:00-0500Body wkelpz688.64 [facility] Other [employer] ([place] [employer] Other 03-07-2022 16:00-0500Body mass index (BMI) [Ratio]30.5 kg/a4Thgnn Chaban Other [employer] [facility] [employer] Other 03-07-2022 16:00-0500Body .5 [degF]Ruben Hahn Other [employer] Other 03-07-2022 16:00-0500Body rtjsry86.73 kgRuben Hahn Other [employer] Other 03-07-2022 16:00-0500Diastolic blood mm[Hg] Ruben Hahn Other [employer] Other 03-07-2022 16:00-2010KaC2% (BldA) [Mass fraction]99 % Ruben Hahn Other [employer] Other 03-07-2022 16:00-0500Systolic blood mm[Hg] Ruben Hahn Other [employer] Other 01-10-2022 14:15-0500Body yuoakq120.64 cmCrispin Aayush Other [employer] [employer] Other 01-10-2022 14:15-0500Body mass index (BMI) [Ratio] 30.87 kg/p7KbaizCrispin Looney Other [employer] [employer] Other 01-10-2022 14:15-0500Body qqubds04.77 kgCrispin Looney Other [employer] [facility] [employer] Other 01-10-2022 14:15-0500Diastolic blood nglqpnge12 mm[Hg] Crispin Looney Other [employer] Other 01-10-2022 14:15-0500Respiratory rate20 /minKesonny Looney Other [employer] [employer] Other 01-10-2022 14:15-9653BjG7% (BldA) [Mass fraction]98 % Crispin Looney Other [employer] [facility] [employer] Other 01-10-2022 14:15-0500Systolic blood cgyzvhep934 mm[Hg] Crispin Looney Other [employer] [facility] [employer] Other 12-06-2021 15:00-0500Body olqygp343.64 cmMamonserrat Nava Other [employer] Other 12-06-2021 15:00-0500Body mass index (BMI) [Ratio] 30.99 kg/q0HdhuevvTray Nava Other [employer] Other 12-06-2021 15:00-0500Body pbensuqrapl79.3 [degF] Tray Nava Other [employer] Other 12-06-2021 15:00-0500Body ibwibk13.09 kgMattnorth Nava Other [employer] Other 12-06-2021 15:00-0500Diastolic blood wzypsfoa82 mm[Hg] Tray Nava Other [employer] Other 12-06-2021 15:00-7244XkR6% (BldA) [Mass fraction]93 % Tray Nava Other [employer] Other 12-06-2021 15:00-0500Systolic blood buqyaqol094 mm[Hg] Tray Ceballospratibha Other [employer] [employer] Other 11-29-2021 15:00-0500Body lqcwez994.64 cmTondra Mapus Other [employer] [employer] Other 11-29-2021 15:00-0500Body mass index (BMI) [Ratio] 30.99 kg/l1Fqbjxk Mapus Other [employer] ([place] [employer]) Other 11-29-2021 15:00-0500Body yokuuw35.09 kgTondra Mapus Other [employer] Other 11-29-2021 15:00-0500Diastolic blood ihzfsvnl11 mm[Hg] Tondra Mapus Other [employer] Other 11-29-2021 15:00-0500Respiratory rate20 /minTondra Mapus Other [employer] Other 11-29-2021 15:00-5044DsY0% (BldA) [Mass fraction]97 % Tondra Mapus Other [employer] [employer] Other 11-29-2021 15:00-0500Systolic blood bpcmkonq201 mm[Hg] Tondra Mapus Other [employer] [employer] Other 11-01-2021 16:00-0400Body irxuko504.64 cmMamonserrat Nava Other [employer] [employer] Other 11-01-2021 16:00-0400Body mass index (BMI) [Ratio] 30.66 kg/o6Rgemfor Langenberg [facility] [employer] Other 11-01-2021 16:00-0400Body ydujqw13.18 kgMamonserrat Nava [facility] [employer] Other 11-01-2021 16:00-0400Diastolic blood lvxkuegm07 mm[Hg] Tray [facility]ava [facility] [employer] Other 11-01-2021 16:00-0400Systolic blood gwjthbyj578 mm[Hg] Tray Nava [facility] [employer] Other 05-01-2018 12:01-0400Body gcfgiu093.18 cmDO Jonas Yoder Work Phone: [facility] Encounters Encounter DateEncounter TypeCare ProviderFacilityStart: 02-28-2025 End: 97-66-0628KanbcuPghy D Bej MD Work Phone: [facility] 111Comment on above: Neurogenic painStart: 02-09-2025 End: 85-78-4833Vyrnfy outpatient visit 15 minutesLinwood Irwin MD Work Phone: NOPQ [place] OBGYNComment on above:Encounter for gynecological examination; Vaginal lesionStart: 02-09-2025 End: 47-00-5691Mcpjovk encounter statusLinwood Irwin MD Work Phone: NONH HealthcareStart: 02-09-2025 End: 56-50-4440muzaotwtksQSAUDK P JONESNot AvailableStart: 02-02-2025 End: 41-24-3347Zupmsi OnlyLinwood Irwin MD Work Phone: NOQK External Department UnsolicitedStart: 02-02-2025 End: 40-03-2205Wfyaxw outpatient visit 10 minutesLinwood Irwin MD Work Phone: NONH [place] OBGYNComment on above:Encounter for gynecological examination; Vaginal lesion; Encounter for gynecological examination without abnormal finding; Encounter for screening for cervical cancer; Breast cancer screening by mammogramStart: 02-02-2025 End: 09-32-2271Elmzilj encounter statusLinwood Irwin MD Work Phone: noms HealthcareStart: 02-02-2025 End: 83-28-4257Xauumsz encounter procedureShantel Norton APRN FISHER TERRAPIN-CT Scan [facility] Work Phone: Start: 02-02-2025 End: 34-26-9891qaqwrpluhwAzaohjub Rohrbacher APRN Work Phone: [facility] Work Phone: Start: 01-19-2025 End: 23-48-2337qbzodrjxmoDUHE D BEJNot AvailableStart: 01-19-2025 End: 13-60-8699Xfpgxw outpatient visit 15 minutesOz Kincaid MD Work Phone: [facility] NeurologyComment on above: Weakness of both lower extremities (Primary Dx); Carpal tunnel syndrome, bilateral; Cognitive decline; Cervical paraspinal muscle spasm; B12 deficiency; Guyon syndrome, unspecified lateralityStart: 01-19-2025 End: 46-02-4455Glhaqa Cecilia Kincaid MD Work Phone: noms NEUROLOGYStart: 01-19-2025 End: 10-68-1703Lkpsqk Cecilia Kincaid MD Work Phone: noms NEUROLOGYStart: 01-12-2025 End: 35-29-4405vrcuolxidcPhiqziqpHannah Norton APRN Work Phone: [facility] Work Phone: Start: 01-12-2025 End: 42-01-5844Lunftvl encounter procedureShantel Norton APRN FISHER TERRAPIN-[facility] Work Phone: Start: 01-05-2025 End: 62-51-8447wksdpirhupUwzenazq Rohrbacher NITZA Work Phone: [facility] Work Phone: Start: 01-05-2025 End: 81-24-4065Gjwiwrx encounter procedureJuliorebecca Russell [facility] Work Phone: Start: 12-31-2024 End: 74-66-8558rwwuejwnaiKRLB D BEJNot AvailableStart: 12-97-3116Ude-patient / Non-visitDarasta Medina MD-[facility] Work Phone: Start: 12-30-2024 End: 84-56-8496Wkbivy outpatient visit 15 minutesMolurdes Faust MD Work Phone: uh [facility] StanlyComment on above:Typical atrial flutter (Multi) (Primary Dx); Nonischemic cardiomyopathy (Multi); Hypertension, unspecified type; Hypercholesteremia; Obesity (BMI 30-39.9); Current smokerStart: 12-30-2024 End: 41-40-9866hzxbqjaztaRXPWTWDBrooks [facility] Hospital AmbulatoryStart: 12-24-2024 End: 90-13-0805Pzrrgpl encounter procedureDarasta Medina MD-Sleep Lab Work Phone: Start: 12-24-2024 End: 06-78-6475kjhxzrdtfzDbelip A Johns DO Work Phone: [facility] Work Phone: Start: 12-18-2024 End: 30-99-6618Mnehczr encounter procedureOz Kincaid MD Work Phone: [facility] NeurologyComment on above: Numbness (Primary Dx); Paresthesias; Pain in both lower extremities; Lumbosacral radiculopathy at K7Zwgyo: 12-18-2024 End: 15-65-1774rymebgpypwLURH D BEMattNot AvailableStart: 12-15-2024 End: 48-80-9274lffepjiozyTbeeoj Rebecca Keita DO Work Phone: [facility] Work Phone: Start: 12-15-2024 End: 05-32-2308Vmehzqo encounter procedureShantel Norton APRN FISHER TERRAPIN-FPG [facility] Work Phone: Start: 12-11-2024 End: 31-75-1986pvtjlqmspzIEMS Lillian KINCAIDNot AvailableStart: 12-11-2024 End: 83-07-8131Lrauowq encounter procedureOz Kincaid MD Work Phone: noms [facility] NeurologyComment on above: Hand weakness (Primary Dx); Carpal tunnel syndrome, bilateralStart: 11-23-2024 End: 61-74-3148Xubiln outpatient visit 15 minutesKarl ZUNIGAM Work Phone: noms [place] PodiatryComment on above:Ulcer of right foot with fat layer exposed (HCC) (Primary Dx); 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); Abscess of right foot; At increased risk for emergency hospital admissionStart: 11-23-2024 End: 56-29-5600voixvmxznlJHAJBRUOO H SMITHNot AvailableStart: 11-23-2024 End: 90-91-6072Phpbtt flowsTayler Fritz DPM Work Phone: noms [place] PodiatryStart: 11-23-2024 End: 20-01-6369Bceajt flowsTayler Fritz DPM Work Phone: noms [place] PodiatryStart: 11-16-2024 End: 28-93-0043Oocdxarw ReferredKarl Fritz DPM-Lab [facility] [place] Work Phone: Start: 11-16-2024 End: 33-35-4062Ieazqd outpatient visit 25 minutesCaalpa Fritz DPM Work Phone: noms SWS PODIATRYComment on above:Ulcer of right foot with fat layer exposed (HCC) (Primary Dx); 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); Cellulitis of right foot; Deformity of toe, rightStart: 11-16-2024 End: 55-13-6690tdjezhgotkCmgrjf Rebecca Keita DO Work Phone: [facility] Work Phone: Start: 11-16-2024 End: 44-89-3612Cbelpzbi Result EncounterKarl Fritz DPM Work Phone: noms External Department UnsolicitedStart: 11-16-2024 End: 69-72-7146Ldbtxshb Result EncounterKarl Fritz DPM Work Phone: noms External Department UnsolicitedStart: 11-09-2024 End: 45-28-4072txnootijyvAwwtrio Vytautas Giedraitis Facility:PM Ac Start: 10-31-2024 End: 17-12-7006TqkwtlIcge D Bej MD Work Phone: noms [facility] NEUR[facility] 111Comment on above:Neurogenic pain Start: 10-21-2024 End: 87-18-1517Hhmzawlzn encounterOz Kincaid MD Work Phone: noms [facility] NEUR[facility] 111Start: 10-20-2024 End: 83-98-6284Twplkt flowsTayler Fritz DPM Work Phone: noms [facility] PODIATRYStart: 10-20-2024 End: 95-73-5606Beddjs flowsTayler Fritz DPM Work Phone: noms [facility] PODIATRYStart: 10-20-2024 End: 75-72-3234Peqhtf outpatient visit 25 minutesCaalpa Fritz DPM Work Phone: noms [facility] PODIATRYComment on above:Ulcer of right foot with fat layer exposed (HCC) (Primary Dx); 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); Blister of right foot, initial encounter; Deformity, foot, rightStart: 10-20-2024 End: 77-68-9709ewrxbkmjmuPPRELJSGP Phi FRITZNot AvailableStart: 10-07-2024 End: 39-41-6934Amoljwbaj encounterOz Kincaid MD Work Phone: noms [facility] NE[facility] 111Start: 10-06-2024 End: 18-54-9454Khgagv flowsMelania Kincaid MD Work Phone: noms BM NEUROLOGYStart: 10-06-2024 End: 84-26-2124Ffrqnf flowsMelania Kincaid MD Work Phone: noms BM NEUROLOGYStart: 10-06-2024 End: 08-22-3046Krefea outpatient visit 25 minutesOz Kincaid MD Work Phone: noms SWS NEUR BComment on above:Weakness of both lower extremities (Primary Dx); Carpal tunnel syndrome, bilateral; Cognitive decline; Cervical paraspinal muscle spasm; B12 deficiency; Guyon syndrome, unspecified laterality; Numbness; Leg pain, left; Leg pain, right; Bilateral leg weaknessStart: 10-06-2024 End: 75-37-4487dvpxmvkjxrCRSU D BEJNot AvailableStart: 10-05-2024 End: 42-76-9871mtiertpoyaDmoeyxi Vcathleenautas Gieditis Facility:PM Ac Start: 10-01-2024 End: 36-57-0845sztwokqatlMlyqgp A Keita DO Work Phone: [facility] Work Phone: Start: 10-01-2024 End: 02-19-3258Cefcmez encounter procedureGloria Keita DO Work Phone: [facility] Work Phone: Start: 58-20-0517Mtd-patient / Non-visitGloria Keita DO Work Phone: [facility] Gastro Work Phone: Start: 09-10-2024 End: 81-81-9741Empmoxxmm to same day surgery centerGloria Debbie DO Work Phone: [facility]-Digestive Health Work Phone: Start: 09-10-2024 End: 64-21-0415zxjhxzwaggZzxqpg A Keita DO Work Phone: [facility] Work Phone: Start: 09-07-2024 End: 81-46-5668vsabaddxgkWaogxu A Keita DO Work Phone: [facility] Work Phone: Start: 09-07-2024 End: 55-04-4633Vguyhgz encounter procedureGloria Debbie DO Work Phone: [facility] Physician [facility] Neurosurgery Work Phone: start: 08-25-2024 End: 27-94-3497tqukfmjnqwGyzuqp A Debbie DO Work Phone: [facility] Work Phone: Start: 08-25-2024 End: 90-82-0069Cjrvjnt encounter procedureGloria Debbie DO Work Phone: [facility] Work Phone: Start: 08-20-2024 End: 01-19-9800tazmvwoamqEqmvww A Debbie DO Work Phone: [facility] Work Phone: Start: 08-20-2024 End: 62-50-5677Dndnkum encounter procedureGloria Keita DO Work Phone: [facility] Work Phone: Start: 07-22-2024 End: 32-73-8497Ngfrszy encounter procedureGloria Keita DO Work Phone: [facility] Work Phone: Start: 07-22-2024 End: 86-06-8270drwjfnwlvoTxnixe A Keita DO Work Phone: [facility] Work Phone: Start: 07-21-2024 End: 78-24-9813Btxljr outpatient visit 15 minutesOz Kincaid MD Work Phone: noms SWS NEUR BComment on above:Cognitive decline (Primary Dx); Cervical paraspinal muscle spasm; B12 deficiency; Carpal tunnel syndrome, bilateral; Guyon syndrome, unspecified laterality; Neurogenic painStart: 07-21-2024 End: 25-18-1896rqzmkdfdiaUNLT D BEJNot AvailableStart: 07-06-2024 End: 25-84-1081rzyodqgdukWtwysb A Keita DO Work Phone: [facility] Work Phone: Start: 07-06-2024 End: 79-73-7852Pplonkdg ReferredGloria Keita DO Work Phone: [facility] C[facility]-LAB Path Spec Ac HospStart: 06-26-2024 End: 19-53-5868Vucgyeop Result EncounterNataliya Jane NP Other Phone: noms External Department UnsolicitedStart: 06-26-2024 End: 54-00-2715Ijrfhffn Result EncounterMarkarlos Jane NP Other Phone: noms External Department UnsolicitedStart: 06-26-2024 Registered RecurringGloria Keita DO Work Phone: [facility]-Cancer Center Acute Work Phone: Start: 06-26-2024 End: 38-07-6452Nmojaxp encounter procedureGloria Keita DO Work Phone: [facility]-Lab [facility] [place] Work Phone: Start: 06-26-2024 End: 85-93-9480wdbcetyyoqGzbaao A Keita DO Work Phone: [facility] Work Phone: Start: 06-26-2024 End: 97-53-1357Vhmfrd outpatient visit 25 minutesRoland Faust MD Work Phone: uh [facility]lyComment on above:Typical atrial flutter (Multi) (Primary Dx); Nonischemic cardiomyopathy (Multi); Hypercholesteremia; Hypertension, unspecified type; BMI 32.0-32.9,adult; Current smokerStart: 06-26-2024 End: 68-75-3927sglnabuzjuEBFOAPGPiedmont McDuffie AmbulatoryStart: 69-39-7573Rym-patient / Non-visitGloria Keita DO Work Phone: [facility] Work Phone: Start: 05-25-2024 End: 53-79-3828Dyxxvqz encounter procedureGloria Keita DO Work Phone: [facility]-MRI [facility] [place] Work Phone: Start: 05-25-2024 End: 11-01-8192zptisdfkrsDfhnau A Keita DO Work Phone: [facility] Work Phone: Start: 05-19-2024 End: 08-32-9342Zjukyajzy encounterOz Kincaid MD Work Phone: noms [facility] NE[facility] 111Start: 05-07-2024 End: 52-37-1392zkflowjlggZxkvec A Keita DO Work Phone: [facility] Work Phone: Start: 05-07-2024 End: 31-84-1792Jqsunwm encounter procedureGloria Keita DO Work Phone: [facility] Work Phone: Start: 04-28-2024 End: 44-77-3702Dokvszjrgi and management of inpatientGloria Keita DO Work Phone: [facility] [place] [facility] Work Phone: Start: 04-28-2024 End: 02-42-5410rrghimstnyVjsnbo A Keita DO Work Phone: [facility] Work Phone: Start: 04-28-2024 End: 48-39-7351Moysqyd encounter procedureGloria Keita DO Work Phone: [facility] Physician [facility] Work Phone: Start: 04-28-2024 End: 66-96-1244Edmvfdk encounter procedureGloria Keita DO Work Phone: [facility] Work Phone: Start: 04-27-2024 End: 29-09-8701Fofnjcdzk department patient visitGloria Keita DO Work Phone: [facility]-Emergency Room Work Phone: Start: 04-14-2024 End: 50-41-1560Civvodgs Result EncounterMarkarlos Jane FLIGHT DIRECTOR Work Phone: noms External Department UnsolicitedStart: 04-14-2024 End: 45-03-2883Zbdbfadv Result EncounterNataliya Jane FLIGHT DIRECTOR Work Phone: noms External Department UnsolicitedStart: 04-14-2024 End: 56-37-8690Iogheen encounter procedureGloria Keita DO Work Phone: [facility] Work Phone: Start: 04-08-2024 End: 52-45-5348Atkkwpi encounter procedureCaalpa Fritz DPM Work Phone: noms SWS PODIATRYComment on above:Ulcer of right foot, limited to breakdown of skin (CMS/HCC) (Primary Dx); Ulcer of right foot with fat layer exposed (CMS/HCC); 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)Start: 04-08-2024 End: 62-97-1674hixrmbcqynGSOZUCWEQ H Mala AvailableStart: 04-07-2024 End: 47-98-4982Yjisfj Cecilia Kincaid MD Work Phone: noms BM NEUROLOGYStart: 04-07-2024 End: 94-08-4447Uqkeyu Cecilia Kincaid MD Work Phone: noms BM NEUROLOGYStart: 04-07-2024 End: 76-35-0644Afhcgk outpatient visit 15 minutesOz Kincaid MD Work Phone: noms SWS NEUR BComment on above:Cognitive decline (Primary Dx); B12 deficiency; Neurogenic pain; Carpal tunnel syndrome, bilateral; Cervical paraspinal muscle spasm; Guyon syndrome, unspecified laterality; GranulocytosisStart: 04-07-2024 End: 73-25-1051pbxialerpuRALB D BEJNot AvailableStart: 03-25-2024 End: 49-15-5840yukmuhkvkpFFVQNIEPiedmont McDuffie AmbulatoryStart: 03-25-2024 End: 09-60-7081Vcjcoa outpatient visit 10 minutesRoland Faust MD Work Phone: uh [place]Comment on above:Hypertension, unspecified type; Typical atrial flutter (Multi)Start: 02-25-2024 End: 21-16-1309Hnbbsy outpatient visit 25 minutesOz Kincaid MD Work Phone: noms SWS NEUR BComment on above:Cognitive decline (Primary Dx); Neurogenic pain; Carpal tunnel syndrome, bilateral; B12 deficiencyStart: 02-25-2024 End: 75-25-6697Hygtak Cecilia Kincaid MD Work Phone: noms BM NEUROLOGYStart: 02-25-2024 End: 28-03-5637Nqxkppruben Kincaid MD Work Phone: noms BM NEUROLOGYStart: 02-25-2024 End: 39-22-4109pafzpsplquOLUG D BEJNot AvailableStart: 02-14-2024 End: 15-06-7033qoihoxqxkwFqwspb Rebecca Puentecility:[facility]: 02-14-2024 End: 49-18-6524Efwgaoqr ReferredGloria Debbie DO Work Phone: [facility]-Digestive Health Work Phone: Start: 02-10-2024 End: 00-40-7662Rhiogu Amalia Fritz DPM Work Phone: noms [facility] PODIATRYStart: 02-10-2024 End: 80-76-7999Rqeqtj Amalia Fritz DPM Work Phone: noms [facility] PODIATRYStart: 02-10-2024 End: 18-84-4937Oogagb outpatient visit 15 minutesCaalpa Fritz DPM Work Phone: noms [facility] PODIATRYComment on above:Ulcer of right foot, limited to breakdown of skin (CMS/HCC) (Primary Dx); Blister of right foot, subsequent encounter; 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); Ulcer of right foot with fat layer exposed (CMS/HCC)Start: 02-03-2024 End: 22-53-4832cdbdiiwlazUG Sandra Keita Work Phone: [facility] Work Phone: Start: 02-03-2024 End: 29-60-3562Ydmukdq encounter procedureDO Sandra Keita Work Phone: [facility] Family Medicine [place] Work Phone: Start: 01-27-2024 End: 07-09-3782Udqiwl Amalia ZUNIGAM Work Phone: noms [facility] PODIATRYStart: 01-27-2024 End: 43-90-2660Hcywoq flowsheetKarl Fritz DPM Work Phone: noms [facility] PODIATRYStart: 01-27-2024 End: 86-43-5718Nycugx outpatient visit 15 minutesKarl ZUNIGAM Work Phone: noms [facility] PODIATRYComment on above:Ulcer of right foot, limited to breakdown of skin (CMS/HCC) (Primary Dx); Blister of right foot, subsequent encounter; 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)Start: 01-21-2024 End: 94-90-3506Henfei flowsheetKarl Fritz DPM Work Phone: noms [facility] PODIATRYStart: 01-21-2024 End: 00-55-6509Eieetx flowsheetKarl Fritz DPM Work Phone: noms [facility] PODIATRYStart: 01-21-2024 End: 64-98-5635Zyoqum outpatient visit 15 minutesCaalpa Fritz DPM Work Phone: noms [facility] PODIATRYComment on above:Ulcer of right foot, limited to breakdown of skin (CMS/HCC) (Primary Dx); Blister of right foot, initial encounter; 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)Start: 01-15-2024 End: 95-16-0745fsvcsqtgrpGW Sandra Keita Work Phone: [facility] Work Phone: Start: 01-15-2024 End: 33-81-9215Tszamiq encounter procedureDO Sandra Keita Work Phone: [facility] Neurosurgery Work Phone: start: 01-08-2024 End: 61-40-1113Rhwqgcdra encounterOz Kincaid MD Work Phone: noms [facility] NE[facility] 111Start: 01-07-2024 End: 93-70-8272Ttddkz flowsTayler Fritz DPM Work Phone: noms [facility] PODIATRYStart: 01-07-2024 End: 16-07-1550Bmnfco flowsTayler Fritz DPM Work Phone: noms [facility] PODIATRYStart: 01-07-2024 End: 55-83-0055Uzzpha outpatient visit 25 minutesOz Kincaid MD Work Phone: noms [facility] NEUR BComment on above:Lumbosacral radiculopathy at S1 (Primary Dx); Neurogenic pain; Cervical paraspinal muscle spasm; Lumbar paraspinal muscle spasm; Carpal tunnel syndrome, bilateral; B12 deficiencyStart: 01-07-2024 End: 76-92-4671xrgbhcfzytZG Gloria A Keita Work Phone: [facility] Work Phone: Start: 01-07-2024 End: 35-46-7843Kqtdztsg ReferredDO Flores Keita Work Phone: [facility]-Lab [facility] [place] Work Phone: Start: 01-07-2024 End: 43-21-1841Uqrcxi outpatient visit 25 minutesKarl Fritz DPM Work Phone: noms [facility] PODIATRYComment on above:Ulcer of right foot, limited to breakdown of skin (CMS/HCC) (Primary Dx); Cellulitis of right footStart: 01-06-2024 End: 67-63-3213rzflzmcetwRPAlysa Keita Work Phone: [facility] Work Phone: Start: 01-06-2024 End: 08-28-6392Bezoxyo encounter procedureDO Flores Keita Work Phone: [facility]-Ultrasound [facility] [place] Work Phone: Start: 01-03-2024 End: 89-74-1718Nqneurif SupportOz Kincaid MD Work Phone: noms [facility] NEUR BComment on above:Carpal tunnel syndrome, bilateral (Primary Dx)Start: 01-03-2024 End: 48-42-3387Vqwame flowsMelania Kincaid MD Work Phone: noms BM NEUROLOGYStart: 01-03-2024 End: 03-98-2601Nkmyxv flowsMelania Kincaid MD Work Phone: noms BM NEUROLOGYStart: 12-17-2023 End: 60-13-7490lirmvyjpytWY Gloria A Keita Work Phone: [facility] Work Phone: Start: 12-17-2023 End: 25-61-0218Iurauqe encounter procedureDO Sandra Keita Work Phone: [facility]-MRI [address] Work Phone: Start: 12-16-2023 End: 55-62-8278Kfyjkj outpatient visit 25 minutesMolurdes Faust MD Work Phone: uh FirelandsComment on above:High risk medication use (Primary Dx); Typical atrial flutter (Multi); Nonischemic cardiomyopathy (Multi); Hypercholesteremia; BMI 28.0-28.9,adult; BMI 30.0-30.9,adult; Current smokerStart: 12-02-2023 End: 80-72-4108hpppoduqyiVN Sandra Keita Work Phone: [facility] Work Phone: Start: 12-02-2023 End: 06-32-3501Yjkjgcq encounter procedureDO Sandra Keita Work Phone: [facility]-Lab [address] [place] Work Phone: Start: 11-26-2023 End: 10-58-5012zyokbmlmnjRI Gloria A Keita Work Phone: [phone] [place] [address] Work Phone: Start: 11-26-2023 End: 96-62-9015Gmvhhlg encounter procedureDO Sandra Keita Work Phone: [facility]-Lab [place] Work Phone: Start: 11-26-2023 End: 41-76-9191Owdbvohu Result EncounterOz Kincaid MD Work Phone: noms External Department UnsolicitedStart: 11-26-2023 End: 20-19-0784Kvicgczv Result EncounterOz Kincaid MD Work Phone: noms External Department UnsolicitedStart: 11-18-2023 End: 49-31-3230edkxlejlvmWR Sandra A [facility] Work Phone: [facility] Work Phone: Start: 11-18-2023 End: 81-73-9862Uelkiey encounter procedureDO Sandra Keita Work Phone: [facility] Family Medicine [place] Work Phone: Start: 41-25-6429Nia-patient / Non-visitDO Sandra Keita Work Phone: [facility] Work Phone: Start: 11-15-2023 End: 84-98-6497rmdyddliecQM Sandra Rebecca Keita Work Phone: [facility] Work Phone: Start: 11-15-2023 End: 55-22-2762Nqmpunl encounter procedureDO Sandra Keita Work Phone: [facility]-Respiratory Therapy Work Phone: Start: 11-14-2023 End: 90-34-1962dnllxqgurfNP Sandra A [facility] Work Phone: [phone] [place] [address] Work Phone: Start: 11-14-2023 End: 71-10-8019Pgjppxf encounter procedureDO Sandra Keita Work Phone: [facility] Work Phone: Start: 11-13-2023 End: 00-80-0097Djgzaj outpatient visit 25 minutesJonas Ch MD Work Phone: [facility] CenterComment on above:Nonischemic cardiomyopathy (Multi) (Primary Dx); Typical atrial flutter (Multi); Hypercholesteremia; Primary hypertension; Current smoker; BMI 28.0-28.9,adult; High risk medication useStart: 13-80-3791Mwi-patient / Non-visitDO Sandra Keita Work Phone: [facility] [place] Work Phone: Start: 11-10-2023 End: 95-52-7058Awybikqbbj and management of inpatientDO Sandra Keita Work Phone: [facility] Work Phone: Start: 11-05-2023 End: 57-08-0508Wohvihjgd to same day surgery centerDO Sandra Keita Work Phone: [facility]-Electrodiagnostics Work Phone: Start: 11-05-2023 End: 75-25-4129nybxavrretEX Sandra Keita Work Phone: [facility] Work Phone: Start: 10-30-2023 End: 52-86-1659Lqcuhvrn Result EncounterOz Kincaid MD Work Phone: noms External Department UnsolicitedStart: 10-30-2023 End: 25-04-1764Bhfohhmm Result EncounterOz Kincaid MD Work Phone: noms External Department UnsolicitedStart: 10-30-2023 End: 50-40-8113qlxawsgltmHT Gloria A Johns Work Phone: [facility] Work Phone: Start: 10-30-2023 End: 31-80-9848Bwiwrca encounter procedureDO Sandra Keita Work Phone: [facility]-XRay [facility] Work Phone: Start: 10-07-2023 End: 33-35-5260Fuiwch outpatient visit 25 minutesJonas Ch MD Work Phone: uh [facility] on above:Typical atrial flutter (Multi); Nonischemic cardiomyopathy (Multi); Hypertension, unspecified type; Hypercholesteremia; Smoker; Type 2 diabetes mellitus with other specified complication, unspecified whether skilled nursing insulin use (Multi); BMI 28.0-28.9,adultStart: 09-17-2023 End: 05-54-6313xugpjimegaVM Gloria A Johns Work Phone: [facility] Work Phone: Start: 09-17-2023 End: 81-69-5125Eywuygk encounter procedureDO Sandra Keita Work Phone: [facility] [place] Work Phone: Start: 13-57-0734Rwb-patient / Non-visitDO Sandra Keita Work Phone: [facility] [place] Work Phone: Start: 09-14-2023 End: 14-19-9393Qqw-patient / Non-visitDO Sandra Keita Work Phone: [facility] Work Phone: Start: 09-13-2023 End: 85-51-0274Qjnkroeutg and management of inpatientDO Sandra Keita Work Phone: [facility]-3 [place] [facility] Work Phone: Start: 09-12-2023 End: 53-97-1349Cmzgolj encounter procedureDO Sandra Keita Work Phone: [facility] Work Phone: Start: 86-07-3613Ife-patient / Non-visitDO Sandra Keita Work Phone: [facility] Family Medicine [place] Work Phone: Start: 09-05-2023 End: 22-26-1217ufaledpzrbKH Gloria A Johns Work Phone: [facility] Work Phone: Start: 09-05-2023 End: 99-00-2964Rwlnpqr encounter procedureDO Sandra Keita Work Phone: [facility]-Lab [place] Work Phone: Start: 07-25-2023 End: 09-78-9772ykekaibroeKF Gloria A Johns Work Phone: [facility] Work Phone: Start: 07-25-2023 End: 1957Vrjcdpu encounter procedureDO Sandra Keita Work Phone: [facility]-CT [address] Work Phone: Start: 07-17-2023 End: 43-51-5962hazfmyajsqOdazuyhxmDiley Ridge [facility] Work Phone: Start: 07-17-2023 End: 26-49-6236Rmmqwfa encounter procedureAt[facility] Health [facility] GroupUP[facility] Work Phone: Start: 06-19-2023 End: 17-90-2365zbadsnfzlvGeiehnqjhDiley Ridge Medical Center Work Phone: Start: 06-19-2023 End: 31-35-7403Rfnttbk encounter procedureFirsentara [facility]ici hospital Phys[facility] GroupTem[facility] [place] Work Phone: Start: 06-12-2023 End: 94-05-6577csrhkoyhjoIvfmpjbrj [facility] Work Phone: Start: 06-12-2023 End: 67-84-7132Csagpcr encounter procedureAtrium Health Stan[facility] Physician GroupHUDSON [facility] Work Phone: Start: 06-10-2023 End: 53-87-0636xkxybpwkdvZmfcem Leonardous Other [employer]) Other Start: 72-61-4474Cwbupypyj encounterTondrOhioHealth Southeastern Medical Centertart: 05-21-2023 End: 16-35-7672dznwvlibnbEfynir Keita Other [employer] ([employer]) Other Start: 92-45-3325Cpmyjtamt encounterGloria DebbieAdventist Health Simi ValleyyStart: 04-30-2023 End: 03-00-8995yfacsaqdmzKdzhvq Mapus Other [employer] ([employer]) Other Start: 13-48-3735Zkjbriicb encounterTondra [facility] ClinicStart: 04-11-2023 End: 63-20-0891kxvrhzevaeAkggta Keita Other [employer] ([employer]) Other Start: 76-96-8052Luuzvjjyg encounterGloria DebbieAdventist Health Simi ValleyyStart: 04-08-2023 End: 36-93-5330fixsbkkrzgLcrzny Keita Other [employer]) Other Start: 95-97-4119Otiqzthee encounterGloria [facility] CenteryStart: 03-05-2023 End: 39-66-4217pmdtdwxoleMHDO Jonas Yoder Work Phone: [facility] Work Phone: Start: 03-05-2023 End: 85-91-1064Eyzxvwk encounter procedureDO Jonas Yoder Work Phone: [facility] Work Phone: Start: 03-04-2023 End: 95-10-7227xvnwktzduzVnxrhy Keita Other [employer] Other Start: 49-55-2511Jwpzup outpatient visit 25 minutes Sandra [facility] CenteryStart: 01-28-2023 End: 85-95-4091qoytpleywuJvhhxw Johns Other [employer] Other Start: 71-40-9749Nyreqbrdm encounterGloria [facility] CenteryStart: 55-09-3137Bhgpvptlzm RecurringDO Jonas Yoder Work Phone: [facility] Work Phone: Start: 01-07-2023(DM) DiabetesTondra LeonardousDayton Children'S Hospital Care ClinicStart: 01-07-2023 End: 89-60-8881xobcehipbpYmkote Mapus Other [employer] Other Start: 01-02-2023 End: 73-61-1134yxagtgllrqFfnmsjcr McCormack Other [employer] Other Start: 78-62-2575Rnmdwo outpatient visit 15 minutes Brayden NobleAndre GastroenterologyStart: 12-28-2022 End: 47-13-6006fbxltkrpqqMgeifu Keita Other [employer]) Other Start: 93-38-3106Vvrjionpn encounterGloria JohnsAdventist Health Simi ValleyyStart: 12-18-2022 End: 29-13-5027ffkavrpsdbCkdrwjh Schwerer Other nort [employer] Other Start: 30-68-0988Cewegvqte encounterKaitlin Schwerer [facility] SandgranbyyStart: 12-10-2022 End: 12-78-3713tkdcwdorooFsbbyf Mapus Other [employer] Other Start: 44-45-3828Skeslvtsp encounterTondra Mapus [facility] ClinicStart: 11-28-2022 End: 24-66-3753cbdbwcvgxbGgzpru Keita Other [facility] Other Start: 00-50-7834Tncjcei encounter procedureGloria [facility] CenteryStart: 11-27-2022 End: 95-55-2635pgduowvpnhMqbfps Keita Other [employer]) Other Start: 62-10-2868Quqyydmar encounterGloria [facility] CenteryStart: 11-06-2022 End: 40-96-8261zpnkceijrmAwxslu Keita Other [employer] ([employer]) Other Start: 59-22-3045Pnvqkvfhi encounterGloria JohnsAdventist Health Simi ValleyyStart: 09-27-2022(DM) DiabetesTondra MapusFirelands Coordinated Care ClinicStart: 09-27-2022 End: 82-94-4523kxxdgeqwnlLuehps Mapus Other [employer]) Other Start: 09-10-2022 End: 90-06-8522rzuwngzkjlKxuqzf Johns Other [employer] Other Start: 93-42-2366Zjcclbbjy encounterGloria [facility] SandgranbyyStart: 25-66-8538Alefnermi encounterGloria [facility] SandgranbyyStart: 09-05-2022 End: 92-19-0275jbsrwqqdraGZ Sandra A Keita Work Phone: [facility] Work Phone: Start: 09-05-2022 End: 85-80-3853Lxeecwe encounter procedureDO Sandra Keita Work Phone: [facility] Work Phone: Start: 61-47-6504Rpreavjoi encounterGloria [facility] CenteryStart: 08-22-2022 End: 03-63-1697xvpttoiwehPM Sandra A Keita Work Phone: [facility] Work Phone: Start: 08-22-2022 End: 42-30-0394Hfkxhah encounter procedureDO Sandra Keita Work Phone: [facility]-[address] Work Phone: Start: 08-09-2022 End: 86-24-9487acybmrpjqfAvezgw Debbie Other [employer] Other Start: 27-19-1362Cvfjfy outpatient visit 15 minutes Sandra DebbieNantucket Cottage Hospital SadiegranbyyStart: 08-06-2022 End: 86-68-9220vrnaaccjqrNatynn Debbie Other [employer] Other Start: 80-81-5548Yxbpynitv encounterGloria [facility] HospitaluskyStart: 07-10-2022 End: 45-93-6704sqlzgpjibuTkoyic Keita Other [employer]) Other Start: 68-60-7637Yxyfiqjtt encounterGloria JohnsAdventist Health Simi ValleyyStart: 07-04-2022 End: 86-16-1328nglkdbyjqpYuslzjj Rita Other [employer] ([employer]) Other Start: 27-53-0334Vrsubxxxt encounterRichard RitaWashington Hospitalart: 06-19-2022 End: 17-99-6281fycvwdnvzfRtrtsk Map[place] Other [facility] [employer] Other Start: 88-40-0917Vhvhfddkt encounterTondra [facility] Care ClinicStart: 06-18-2022(DM) DiabetesTondra [facility] Care ClinicStart: 06-18-2022 End: 63-74-0764hbrytmblucGvzxtr Mapus Other [employer] ([employer]) Other Start: 06-14-2022 End: 69-89-8216ayeortfbolZikprx Mapus Other [employer] Other Start: 08-05-3775Gqadumleg encounterTondra Mapus [facility] ClinicStart: 06-08-2022 End: 58-26-6839fckrhafjzrAkraxs Mapus Other [employer] ([employer]) Other Start: 61-76-4607Ajnnwjzjd encounterTondra [facility] Districtus [facility] Care ClinicStart: 06-04-2022 End: 90-31-8627yrunwhmdepNpacjk Keita Other [employer] ([employer]) Other Start: 77-42-3871Jazdovpdl encounterGloria [facility] SandgranbyyStart: 05-30-2022 End: 96-16-4977qxvgcvizzgHclnlj Keita Other [employer] Other Start: 88-06-0267Tenfflxsf encounterGloria [facility] CenteryStart: 05-24-2022 End: 55-02-4599yfosbtxjfbYfizys Keita Other [facility] [employer] Other Start: 80-86-5052Ojhwrjgkm encounterGloria [facility] SandgranbyyStart: 04-03-2022 End: 70-70-5692qveycrtpusUawqwd Keita Other [employer] Other Start: 71-52-9892Iqlixzgih encounterGloria [facility] CenteryStart: 02-14-2022 End: 19-19-5974vwnvrdhgfuQenrnz Keita Other [facility] Other Start: 33-28-5181Vlltrmowm encounterGloria [facility] CenteryStart: 01-09-2022(DM) DiabetesTondra YvonneBlowing Rock Hospitalromy [facility] Care ClinicStart: 01-09-2022 End: 24-13-8961wkgymvtwwmBfkcbi Mapus Other [facility] [employer] Other Start: 57-41-0059ozervncnveEyycp M. LueFacility:EU [place]uskyStart: 45-78-1606kbbcoszlwiFuglvlur A ClemonsFacility:EU NorwalkStart: 12-17-2021 End: 95-51-7833Zaimoncse department patient visitDO Tray CorderoSamaritan Hospital-Emergency RoomStart: 22-50-4647dzbrroilqtFwpjcndg Clemons Facility:EU [place]kyStart: 12-12-2021 End: 76-08-0987vhrrkoqhpwFKEENI HAILEEFacility:CD:[id number]: 12-11-2021 End: 01-61-6729vjqgpgnakeEIXJRU AHUJAFacility:CD:[id number]: 12-09-2021 End: 89-75-9777Xcxharnafl and management of inpatientDO Tray Randle [facility]-3 [place] [facility] SurgStart: 10-12-2021 End: 10-89-0141yluhpyxpicWgxbj Carnahan Other [employer] ([employer]) Other Start: 83-60-9645Ehquzrb encounter procedureKesonny Osborn [facility] [place]kyStart: 75-98-1438Ymjgmwgbw encounterKesonny LooneyDIGNITY HEALTH ST[facility] Family Medicine SandgranbyyStart: 09-13-2021 End: 08-58-4355hgkqfctptrGzkzi Carnahan Other [employer] ([employer]) Other Start: 97-31-3932Shgvcpcqe encounterKesonny LeephillG Family Medicine [place]kyStart: 08-28-2021 End: 65-57-8460pzasrbcykaDymegq Mapus Other [employer] ([employer]) Other Start: 59-66-7909Tmgsarwmc encounterTondra MapusFPG EndocrinologyStart: 07-10-2021(DM) DiabetesTondra MapusFirelands Coordinated Care ClinicStart: 07-10-2021 End: 45-60-1998giafykhkijTekhqe Mapus Other [employer] ([employer]) Other Start: 07-03-2021 End: 67-24-6066ncstikpcbgTtctq Chaban Other [employer] ([employer]) Other Start: 04-51-3835Yzghvq outpatient new 30 minutesOhio State East HospitalStart: 06-28-2021 End: 78-65-3163vexatnfqzxPunyw Carnahan Other [employer] Other Start: 93-11-2699Zthhmuqww encounterKesonny LooneyDIGNITY HE[facility] ST[facility] Family Medicine [facility]'S HospitalyStart: 05-25-2021 End: 95-32-6315hbviycmhzqEtjgn Aayush Other [employer] ([employer]) Other Start: 05-71-0863Oszfnujap encounterKevin RosaMassachusetts Mental Health Center Family Medicine [facility] Joseph'S HospitalyStart: 05-08-2021 End: 61-68-9032qkqavynvstZpjpd Aayush Other [employer] Other Start: 23-19-7900Ssaqqs outpatient new [address] [facility] Family Medicine SandgranbyyStart: 04-11-2021 End: 13-88-7279wlchehzcczIzpfjn Leonardous Other [employer] ([employer]) Other Start: 57-53-8065Prziaygbt encounterTondra Yvonne [facility] ClinicStart: 04-03-2021 End: 12-96-0622nmeeykmiruUihxckv Langenberg Other [facility] [employer] Other Start: 94-83-0949Rpdafa outpatient visit 15 minutes Tray NavaAndre Vascular SurgeryStart: 03-27-2021(DM) DiabetesTondra Leonardous [facility] ClinicStart: 03-27-2021 End: 01-22-4202prdqcrlhfuZbshwj Mapus Other [employer] ([employer]) Other Start: 02-27-2021 End: 77-94-3476iuoynfxkyzRbzsijn Langenberg Other Nort [employer] Other Start: 43-44-8666Kmyuym outpatient visit 15 minutes Tray Nur Vascular SurgeryStart: 05-16-2017 End: 87-60-4201DppbdglyrlIIVNCarlos VOSSFacility:UNKNOWNStart: 01-25-2017 End: 95-74-8182NkixzbvgxyPWCDW [facility] MED[facility] CENTERANDERFacility:H1 Procedures DateProcedureProcedure DetailPerforming ClinicianStart: 01-01-4545FQ of lungs Shantel Ramirezsuzette SURVIVAL EQUIPMENT REPAIRER Work Phone: Start: 41-17-3979PIJGZFAWVHFKA SMEAR CYTOLOGYLinwood Irwin MD Work Phone: start: 78-62-5927Lpvze foot complete minimum 3 views Karl Fritz DPM Work Phone: start: 34-58-2907TJTXRKIZLCK WOUND CULTURE ([facility]) Karl Fritz DPM Work Phone: start: 31-58-4162Iyxwibe microbial cultureGloria Keita Hammerless Work Phone: Start: 39-76-2483NdnliqpjcmhupqspkqelxvdeufWpyiqv Keita [employer] Work Phone: Start: 95-22-2356Scdjn cultureGloria Keita DO Work Phone: Start: 92-03-4208Ckntkiwz blood count with white cell differential, Joelle Jane NP Other Phone: Start: 96-90-1612Kxi routine ecg w/least 12 lds w/i&r Roland Faust MD Work Phone: Start: 83-07-5889ACB of headGloria Keita DO Work Phone: Start: 38-38-6953Oejwo cultureGloria Keita DO Work Phone: Start: 20-09-4389SC angiography of headGloria Keita DO Work Phone: Start: 85-85-1937UI angiography of neck vesselsGloria Debbie DO Work Phone: Start: 23-88-2362XA of head without contrastGloria Debbie DO Work Phone: Start: 90-35-2687Nbxvh chest X-rayGloria Debbie DO Work Phone: Start: 54-28-1318Apgsoowyhmb Panel (PCR)Sandra Keita DO Work Phone: Start: 68-64-9900Bywyovfv blood count with white cell differential, automatedNataliya Jane FLIGHT DIRECTOR Work Phone: Start: 29-60-3089Mrpwhamtmvbll metabolic panelNataliya Jane FLIGHT DIRECTOR Work Phone: Start: 55-40-3377KSEIVHHSVEM SLIDE REVIEW ([facility])Nataliya Jane FLIGHT DIRECTOR Work Phone: Start: 30-73-4441Lhe routine ecg w/least 12 lds w/i&r Roland Faust MD Work Phone: Start: 94-85-5016Xdskcpu microbial cultureDO Sandra Keita Work Phone: Start: 81-46-7001Fdtpjd scan of lower limb veinsDO Sandra Keita Work Phone: Start: 09-07-9815HH lumbar spine wo conDO Sandra Keita Work Phone: Start: 76-52-7861OK pre/post mri xrayDO Sandra Keita Work Phone: Start: 23-71-4024Aej routine ecg w/least 12 lds w/i&r Roland Faust MD Work Phone: Start: 07-11-4652UPRS PROFILE (ANCA+MPO+PR3)Oz Kincaid MD Work Phone: start: 28-53-1180QERX-CENTROMERE B ANTIBODIESOz Kincaid MD Work Phone: Start: 41-80-0136ZNRO-DSDNA(DBL)ABOz Kincaid MD Work Phone: Start: 14-30-7802SGLP-RNPMark Lillian Kincaid MD Work Phone: Start: 95-35-8511Qexvccpmqrg antibodies anaOz Kincaid MD Work Phone: Start: 40-74-2663QDJKBSJQZCXRZ P ANTIBODIESOz Kincaid MD Work Phone: Start: 33-38-0213HYRMJNP ANTIBODIESOz Kincaid MD Work Phone: Start: 94-72-8360Gohuunfhnxe analyte qual/semiqual multiple stepOz Kincaid MD Work Phone: Start: 59-50-8113IK-1 ANTIBODYMark Lillian Kincaid MD Work Phone: Start: 14-43-4816YMJEYYS AND PYRUVATEOz Kincaid MD Work Phone: Start: 15-20-3783FOXLCRNXBMJ 70 ANTIBODIESOz Kincaid MD Work Phone: Start: 04-73-6099AGFBAIEK ANTI-SSA/SSBOz Kincaid MD Work Phone: Start: 51-61-8063CLW AUTOANTIBODIESMark Lillian Kincaid MD Work Phone: Start: 53-34-9541Jpk routine ecg w/least 12 lds w/i&r Jonas Ch MD Work Phone: Start: 13-73-0192NPD of headDO Sandra Keita Work Phone: Start: 27-07-2950Chtqcjcq identified in Urine by Emile Keita Work Phone: Start: 25-01-7102Puhdl Emile Keita Work Phone: Start: 92-63-5513TR of head without contrastDO Sandra Keita Work Phone: Start: 82-27-4518QMSCCDT AND PYRUVATEMark Lillian Kincaid MD Work Phone: start: 69-99-6437A-ray of lumbar spine, six views including bending viewsDO Sandra Keita Work Phone: Start: 82-79-5842Xaqgwptlomf [Units/volume] in Serum or PlasmaJonas Ch MD Work Phone: Start: 89-50-4730Izdmy chest X-rayDO Sandra Keita Work Phone: Start: 11-71-1244JJ of lungsDO Sandra Keita Work Phone: Start: 18-72-1564Dvgz energy X-ray absorptiometryDO Jonas Corinna Work Phone: Start: 72-80-0049Tqbqywash mammography of bilateral breastsDO Sandra Keita Work Phone: Start: 74-50-4168XX of lungsDO Sandra Keita Work Phone: Start: 86-44-4301Hswocnqs tomography of abdomen and pelvis with contrastDO Tray Carrasquilloart: 23-06-5762Mvsblzrxbz laparoscopyDO Tray Carrasquilloart: 41-34-8892MI scan of gallbladderDO Tray Randle Start: 97-21-0883EX of abdomen and pelvis without contrastDO Tray Randle Start: 96-76-9048IfyhmrokasfXwqdfnq McGuinn MD Work Phone: Start: 17-41-2148Dulwmjsp screenComment on above: Performed By: #### [id number] #### [place] [address] Jnzyz culture for bacteria, including anaerobic screenDO Tray NovoaARS Antigen (LFIA)DO Tray Felix cultureDO Tray Randle Urine cultureDO Tray Randle Plan of Treatment DateCare ActivityDetailAuthorStart: 08-17-2025 End: 98-78-1034Risqatc encounter mdeqcglhf31/21/2026 3:10 PM EDT Office Visit [facility] [address] [facility] [address] [facility] [address] [place] [address] Roland Faust MD [address] [facility] [place] [address] [facility] CenterStart: 08-10-2025 End: 38-58-6839Czaklwq encounter znqxxyuxr01/14/2026 1:15 PM EDT Office Visit JUMA Noelnic NUNN [address] [place] [address] Linwood Irwin MD [address] [place] [address] DIONYJaqueline NoelGrover OBGYNStart: 07-20-2025 End: 39-04-6469Smellzv encounter sfblkzubd16/24/2026 4:00 PM EDT Office Visit JUMA [place] [address] [place] [address] Oz Kincaid MD [address] [id number] NOMJaqueline [place] [facility] Start: 02-10-2025 End: 16-42-1450Tlupeiq encounter zofhszfbs16/15/2025 1:00 PM EDT Office Visit DIONYJaqueline [place] NUNN [address] [place] [address] Linwood Irwin MD [address] [place] [address] DIONYJaqueline [place] OBGYNStart: 02-09-2025 End: 00-95-5340Zrpvwlx encounter ojcxtdbtx01/14/2025 12:30 PM EDT Office Visit [facility] [place] [facility] [address] [place] [address] Linwood Irwin MD [address] [place] [address] [facility] [place] OBGYNStart: 01-19-2025 End: 57-89-9732Gocgylf encounter procedureNOMS [facility] NEUR BStart: 12-30-2024 End: 97-86-0943Qnvygmx encounter bnfyxknjn70/03/2025 1:40 PM EDT Office Visit [facility] [address] [facility] [address] [place] [phone] Roland Faust MD [address] [facility] [address] [place], [place] [id number] [facility] CenterStart: 06-93-2064PGXUV-19 Vaccine ( season)COVID-19 Vaccine ( season)[facility] Start: 84-36-1089Rnmouurih vaccinationInfluenza Vaccine (#1)[facility]Start: 12-18-2024 End: 80-50-3125Kqfqdnu encounter procedureNOMS SWS NEUR BStart: 12-11-2024 End: 92-54-7638Nqjsbju encounter procedureNOMS [facility] NEUR BStart: 11-30-2024 End: 79-47-5666Vtjfeuu encounter wjswtmooc17/04/2025 1:15 PM EDT Office Visit [facility] [place] [facility] [address] [place] [address] Karl Fritz DPM [address] [place], [place] [phone] [facility] [place] PodiatryStart: 11-23-2024 End: 77-46-6211Dvodosg encounter procedureNOMS SWS PODIATRYComment on above: ArrivedStart: 38-61-8599Plqranpkpdy Wound CultureSuperficial Wound Culture [facility]: 04-70-9859Ntartmp stimulating hormone measurementSouthwestern Medical Center – LawtonStart: 10-28-2024 End: 20-04-6985Xnryujz encounter icchaaxqa38/02/2025 4:00 PM EDT Office Visit [facility] [address] [place] [address] Karl Fritz, DPM [address] [place] [address] [facility]ODIATRYStart: 10-23-2024 End: 60-78-5985Gznmnap encounter npfweqwko85/27/2025 12:00 PM EDT Procedure Visit [facility] [address] [place] [address] Oz Kincaid MD 5354 [facility] [address] [address] [facility] NE[facility] BStart: 10-20-2024 End: 10-40-3187Grriand encounter ijvekhrns22/24/2025 10:45 AM EDT Office Visit [facility] [address] [place] [address] Karl Fritz, DPM [address] [place] [address] ArrivedNOKAISER FOUNDATION HOSPITAL PODIATRYComment on above:ArrivedStart: 10-06-2024 End: 94-69-1414NFY AND NERVE CONDUCTION STUDYEMG AND NERVE CONDUCTION STUDY Neurology Routine Numbness Leg pain, left Leg pain, right Bilateral leg weakness Expected: 10/06/2024 (Approximate), Expires: 10/06/2025[facility] Work Phone: comment on above:Expected: 10/06/2024 (Approximate), Expires: 10/06/2025Start: 10-06-2024 End: 15-72-7075Gbwvpwd encounter procedureNOMS SWS NEUR BComment on above: ArrivedStart: 09-10-2024 End: 70-87-1038PtngvlmchHolzer Hospitaltart: 78-79-9251Iujxlox referralSelect Medical [facility] Work Phone: Start: 77-16-7067Xfttzep referralSelect Medical Cleveland Clinic [facility], [place] Work Phone: Start: 62-53-7554Rkwqn brachial pressure index [facility]: 20-93-5853Ganwa [facility] Hospitaltart: 82-04-3856Vrwdstjf identified in Urine by Culture Urine CultureHolzer Hospitaltart: 33-55-2903HgpxdwikhHolzer Hospitaltart: 05-26-2024 End: 23-25-3684Blnwkcg encounter dlmrulnmc49/28/2025 2:40 PM EST Office Visit [address] [place] [address] Roland Faust MD 703 [facility] [place] [address] [facility]: 05-07-2024 End: 45-26-5672Bdknhpr encounter tnkvosuxg13/09/2025 2:15 PM EST Office Visit [facility] [address] [place] [address] Karl Fritz DPM [address] [place] [address] [facility] PODIATRYStart: 58-19-3911LyznerhbcHolzer Hospitaltart: 04-29-2024 End: 69-19-5128YbtrhAvita Health System Ontario Hospitaltart: 04-29-2024 Referral to neurologistHolzer Hospitaltart: 04-29-2024 [facility]: 42-35-2955Jkkntwpx admissionHolzer Hospitaltart: 03-94-0696GabgsafzdHolzer Hospitaltart: 04-07-2024 End: 56-14-1039Jgrjroq encounter vnbnhqjgo51/10/2024 3:30 PM EST Office Visit [facility] [address] [place] [address] Karl Fritz, DPM [address] [place] [address] [facility] PODIATRYStart: 04-07-2024 End: 22-28-1651Mwzddnl encounter procedureNOMS SWS NEUR BComment on above: ArrivedStart: 03-27-2024 End: 50-42-8043Zqsvsig encounter jshopekyu74/29/2024 10:10 AM EST Office Visit [facility] 703 [facility] [address] [place] [address] Roland Faust MD 703 [facility], [address] [place] [address] [facility] CenterStart: 03-24-2024 End: 38-80-9744Vduscmn encounter mhbajvwwi94/26/2024 1:30 PM EST Office Visit [facility] [address] [place] [address] Karl Fritz, DPM [address] [place] [address] [facility] PODIATRYStart: 03-10-2024 End: 45-26-3376Yqmqdrm encounter ddpporvph83/12/2024 1:30 PM EST Office Visit [facility] [address] [place] [address] Karl Fritz, DPM [address] [place] [address] [facility] PODIATRYStart: 02-25-2024 End: 79-88-9849Irustel encounter procedureN[facility]S [facility] BComment on above: ArrivedStart: 02-10-2024 End: 88-22-9328Vlrbyyk encounter procedureNOMS SWS PODIATRYComment on above: ArrivedStart: 01-28-2024 End: 46-52-7211Klslblo encounter xgirbqnin04/01/2024 1:30 PM EDT Office Visit [facility] [address] [place] [phone] Oz Kincaid MD 5319 [facility] [address] [place] [address] [facility] NEUR BStart: 01-27-2024 End: 23-49-4905Dpcnhvv encounter procedureNOMS SWS PODIATRYComment on above: ArrivedStart: 01-21-2024 End: 71-82-9441Ncecfhe encounter qivsrsrqx97/24/2024 11:00 AM EDT Office Visit [facility] [address] [place] [address] Karl Fritz DPM [address] [place] [address] ArrivedNOMS SWS PODIATRYComment on above:ArrivedStart: 45-83-9080Nxgphjhgiyy Wound CultureSuperficial Wound CultureHolzer Hospitaltart: 01-07-2024 End: 10-03-9592CVCHEGMTHVD WOUND CULTURE ([facility])SUPERFICIAL WOUND CULTURE ([facility]) Microbiology Routine Ulcer of right foot, limited to breakdown of skin (CMS/HCC) Cellulitis of right foot Expected: 01/07/2024 (Approximate), Expires: 01/06/2025[facility] Work Phone: comment on above:Expected: 01/07/2024 (Approximate), Expires: 01/06/2025Start: 01-07-2024 End: 69-59-1154Huqsqvq encounter qtmwavclg67/10/2024 1:15 PM EDT Office Visit [facility] [address] [place] [phone] Oz Kincaid MD 5355 [facility] [address] [place] [address] NOMJaqueline KIRBY NEUR BStart: 01-07-2024 End: 46-81-5601Twxotip encounter xywephiub21/10/2024 9:45 AM EDT Office Visit [facility] [address] [place] [address] Karl Fritz DPM [address] [place] [address] ArrivedNOMS [facility] PODIATRYComment on above:ArrivedStart: 61-63-0362Wmejpq scan of lower limb veinsUS venous duplex LE [facility] CenterStart: 32-91-3108BR Lower extremity vein - bilateral [facility]: 00-59-5295RDIHJ-19 Vaccine ( season)COVID-19 Vaccine ( season)[facility] Start: 82-10-1585Qfhdcwmpo vaccinationUC Medical CenterStart: 14-10-3457Zjhkd zinc measurementHolzer Hospitaltart: 12-02-2023 End: 86-52-2228AzamgpbgiHolzer Hospitaltart: 40-59-9254Xswjevjy to Scl-70 measurementHolzer Hospitaltart: 24-59-9085XKP antibody measurementHolzer Hospitaltart: 47-11-2104VahboqgjhHolzer Hospitaltart: 11-13-2023 End: 44-59-7894Hmqfvckxv aminotransferase [Enzymatic activity/volume] in Serum or Plasma by With P-5'-PAspartate Aminotransferase Lab Routine High risk medication use Expected: 11/13/2023 (Approximate),Expires: 11/12/2024[facility] Service Area Work Phone: Comment on above:Expected: 11/13/2023 (Approximate), Expires: 11/12/2024Start: 11-13-2023 End: 82-80-6180Ygtud metabolic 2000 panel - Serum or PlasmaBasic Metabolic Panel Lab Routine High risk medication use Expected: 11/13/2023 (Approximate), Expir es: 11/12/2024[facility] Work Phone: Comment on above:Expected: 11/13/2023 (Approximate), Expires: 11/12/2024Start: 11-13-2023 End: 21-14-6140Wnwcmpvn Pulmonary Function Test (Spirometry/DLCO/Lung Volumes) Complete Pulmonary Function Test (Spirometry/DLCO/Lung Volumes) PFT Routine Typical atrial flutter (Multi) Expected: 11/13/2023 (Approximate), Expires: 11/12/2024[facility] Work Phone: Comment on above:Expected: 11/13/2023 (Approximate), Expires: 11/12/2024Start: 11-13-2023 End: 84-36-2963Zvsjwfk encounter urwfowant75/17/2024 2:00 PM EDT Office Visit [facility] [address] [address] Jonas Ch MD 703 [facility] 2, [address] [place] [address] [facility] CenterStart: 11-13-2023 End: 57-95-4094Hjwupguxdsz [Units/volume] in Serum or PlasmaThyroid Stimulating Hormone Lab Routine High risk medication use Expected: 11/13/2023 (Approximate), Expires: 11/12/2024[facility] Work Phone: Comment on above:Expected: 11/13/2023 (Approximate), Expires: 11/12/2024Start: 11-13-2023 End: 48-24-6588YJ Chest 2 ViewsXR chest 2 views Imaging Routine Typical atrial flutter (Multi) Expected: 11/13/2023 (Approximate),Expires: 11/12/2024[facility] Work Phone: Comment on above:Expected: 11/13/2023 (Approximate), Expires: 11/12/2024Start: 32-62-9383FgrvirlqjHolzer Hospitaltart: 07-57-6824OywgaxodgHolzer Hospitaltart: 50-02-7723Fvoxphjd identified in Urine by CultureHolzer Hospitaltart: 54-80-6064Adugeaok to neurologistHolzer Hospitaltart: 99-37-1020Orsbigvl admission [facility]: 01-96-8269Ckvrunnx therapy procedure [facility]: 71-66-5543Dirytmub to occupational therapistHolzer Hospitaltart: 49-84-6934OkyzuzfnwHolzer Hospitaltart: 44-88-0892QdbudmcxlHolzer Hospitaltart: 34-53-4550JjrkgetbiHolzer Hospitaltart: 28-10-6818Xxlsc zinc measurementHolzer Hospitaltart: 47-54-5734LpobojlwyHolzer Hospitaltart: 10-28-2023 End: 26-74-0844Wrxyvjjjndpje ExternalCardioversion External Cardiac Services Routine Typical atrial flutter (Multi) Expected: 10/28/2023(Approximate), Expires: 10/06/2025[facility] Service Area Work Phone: Comment on above:Expected: 10/28/2023 (Approximate), Expires: 10/06/2025Start: 77-89-6124TptvrxketHolzer Hospitaltart: 74-08-1448Diofxkqd to cardiologistHolzer Hospitaltart: 27-12-8848Crzlpafc admissionHolzer Hospitaltart: 12-28-2022 COVID-19 Vaccine ( season)COVID-19 Vaccine ( season) [facility]: 96-91-3697Fdlamoxho for osteoporosisBone Density ScanChildren's Hospital of [facility]: 53-92-8754Xzhokars tomography of abdomen and pelvis with contrastCT abdomen pelvis w [facility] Campustart: 12-17-2021 End: 21-36-2572Jgihghxsb department patient visitDeparted EmergencyPremier Health [facility] Ctr-Emergency RoomStart: 37-23-8199AefurgnlxPremier Health Upper [facility]tr Work Phone: Start: 15-60-5704Ksrhpjdi to urologistPremier Health [facility] Work Phone: Start: 35-72-3001Hthmlqyh to general surgeonPremier Health Upper [facility]tr Work Phone: Start: 19-20-4634Rpevgtad admissionPremier Health Upper [facility]tr Work Phone: Start: 80-45-7510Dgpooxkog for malignant neoplasm of breastMammogramUnSelect Medical [facility]: 69-14-9134JQO High Risk: (Elderly (60+) or Population) (1 - Risk 60-74 years 1-dose series)RSV High Risk: (Elderly (60+) or Population) (1 - Risk 60-74 years 1-dose series)[facility]: 15-20-3379SDF patients and/or patients aged 60+ years (1 - 1-dose 60+ series)RSV patients and/or patients aged 60+ years (1 - 1-dose 60+ series)[facility]: 09-81-2155Ppjmsw Vaccines (1 of 2)Zoster Vaccines (1 of 2) [facility]: 48-76-5261ZGxR/Tdap/Td Vaccines (1 - Tdap)DTaP/Tdap/Td Vaccines (1 - Tdap)[facility]: 95-24-9261Cheiyiriw for malignant neoplasm of cervixUnSelect Medical [facility]: 80-14-1249Qxyhkglsrwlm vaccinationPneumococcal Vaccine (1 of 2 - PCV)[facility]: 50-65-6961Niaiy screening for proteinDiabetes: Urine Protein ScreeningChildren's Hospital of [facility]: 31-65-0543Rxjxcbfly C screeningHepatitis C ScreeningUnSelect Medical [facility]: 90-01-6287Hhlqegym foot examinationDiabetes: Foot ExamUnSelect Medical [facility]: 58-35-1111Vbnmrttn screeningDiabetes: Retinopathy ScreeningChildren[facility]: 59-75-1925Brvtcjrzqvyy Vaccine: 65+ Years (1 of 2 - PCV)Pneumococcal Vaccine: 65+ Years (1 of 2 - PCV) [facility]: 02-17-8159EEA Vaccines (1 of 1 - Standard series)MMR Vaccines (1 of 1 - Standard series)[facility]: 31-36-6572Kxhjes wellness visitUnTogus VA Medical Center Start: 60-37-2219Wtwzqirhgw A1c measurementDiabetes: Hemoglobin H6IRxeezibmleChildren's Hospital of [place]: 30-69-4302Yzrbd panelLipid PanelUnSelect [facility]: 07-30-1958Medicare Annual Wellness VisitMedicare Annual Wellness Visit (AWV)[facility]: 1955 Screening for malignant neoplasm of colonUnSelect Medical [facility]: 58-52-5789Crppqpeho for osteoporosisBone Density ScanChildren[facility]: 18-12-6851Auffska stimulating hormone measurementTSH Level [facility]: 19-71-1811Itsbc screening for protein Diabetes: Urine Protein ScreeningUC Medical Center24 hour urine measurementDiley Ridge Medical CenterAlbumin [Mass/volume] in Serum or PlasmaDiley Ridge Medical CenterAlbumin/Globulin ratioDiley Ridge Medical CenterAldolase measurementDiley Ridge Medical CenterAngiotensin converting enzyme [Enzymatic activity/volume] in Serum or PlasmaDiley Ridge Medical CenterAntibody measurementD[facility] Medical Center Arsenic measurementDiley Ridge Medical CenterBacteria identified in Unspecified specimen by Aerobe cultureDiley Ridge Medical CenterBacteria identified in Unspecified specimen by Aerobe cultureDiley Ridge Medical CenterBorrelia burgdorferi Ab [Interpretation] in SerumDiley Ridge Medical CenterBorrelia burgdorferi IgG Ab [Presence] in Serum or Plasma by ImmunoassayDiley Ridge Medical CenterBorrelia burgdorferi IgG+IgM Ab [Presence] in Serum by ImmunoassayDiley Ridge Medical CenterBorrelia burgdorferi IgM Ab [Presence] in Serum or Plasma by ImmunoassayDiley Ridge Medical CenterCentromere protein B Ab [Units/volume] in SerumDiley Ridge Medical CenterCeruloplasmin [Mass/volume] in Serum or PlasmaDiley Ridge Medical CenterCeruloplasmin [Mass/volume] in Serum or [facility]. Ruby Memorial HospitalComplement C3 [Mass/volume] in Serum or PlasmaDiley Ridge Medical CenterComplement C4 [Mass/volume] in Serum or PlasmaDiley Ridge Medical CenterComprehensive metabolic 1999 panel - Serum or Plasma [facility] CenterComprehensive metabolic 1999 panel - Serum or PlasmaDiley Ridge Medical CenterComprehenunc health rex [place] metabolic 1999 panel - Serum or PlasmaDiley Ridge Medical CenterCopper measurementDiley Ridge Medical CenterCryoglobulin [Presence] in SerumDiley Ridge Medical CenterCT Unspecified body regionDiley Ridge Medical CenterDBT Breast - bilateral screeningBilateral screening mammogram with tomosynthesis Imaging Routine Encounter for gynecological examination Breast cancer screening by mammogram Ordered: 02/02/2025[facility] HospitalComment on above:Ordered: 02/02/2025DXA Skeletal system.axial Views for bone densityDiley Ridge Medical CenterElectrophoresis: xlawj-2-jsdkxpxjJzpofqgwbDiley Ridge Medical Center Electrophoresis: apnsg-1-sfdslgcjMxpsnvlfhDiley Ridge Medical Center Electrophoresis: beta-globulinDiley Ridge Medical CenterElectrophoresis: gamma globulinDiley Ridge Medical CenterFLOWCYTOMETRY NEOGENOMIC FLOWCYTOMETRY NEOGENOMIC Lab Routine 06/26/2024 10:44 AM [facility] Work Phone: Globulin [Mass/volume] in SerumDiley Ridge Medical CenterGlucose measurement estimated from glycated hemoglobinDiley Ridge Medical CenterHesaint elizabeth community hospital A virus antibody, IgM typeDiley Ridge Medical CenterHesaint elizabeth community hospital B core antibody measurement, IgM [facility] GlenbeighHesaint elizabeth community hospital B virus surface Ag [Presence] in Serum or Plasma by ImmunoassayDiley Ridge Medical CenterHepaintsville arh hospitaltis C virus IgG Ab [Presence] in Serum or Plasma by ImmunoassayDiley Ridge Medical CenterHepaintsville arh hospitaltis C virus RNA [log units/volume] (viral load) in Serum or Plasma by TEJINDER with probe detectionDiley Ridge Medical CenterHepaintsville arh hospitaltis C virus RNA [Units/volume] (viral load) in Serum or Plasma by TEJINDER with probe detectionDiley Ridge Medical CenterHistone IgG Ab [Units/volume] in Serum by ImmunoassayDiley Ridge Medical CenterHIV 1+2 Ab+HIV1 p24 Ag [Presence] in Serum or Plasma by ImmunoassayDiley Ridge Medical CenterHomocysteine [Moles/volume] in Serum or PlasmaDiley Ridge Medical CenterHomogenous nuclear Ab pattern [Titer] in SerumDiley Ridge Medical CenterHomogenous nuclear Ab pattern [Titer] in [facility] HospitalIgA [Mass/volume] in Serum or Plasma [facility] Medical CenterIgG [Mass/volume] in Serum or [facility] Ruby Memorial HospitalIgM [Mass/volume] in Serum or [facility]. Ruby Memorial HospitalIGP, APT HPV,RFX 16/18,45IGP, APT HPV,RFX 16/18,45 Lab Routine Encounter for gynecological examination without abnormal finding Encounter for screening for cervical cancer Ordered: 02/02/2025[facility] [employer] Work Phone: comment on above:Ordered: 02/02/2025IGP, APT HPV,RFX 16/18,45IGP, APT HPV,RFX 16/18,45 Lab Routine Vaginal lesion Encounter for gynecological examination without abnormal finding Encounter for screening for cervical cancer Ordered: 02/02/2025[facility] HospitalComment on above:Ordered: 02/02/2025Immunofixation for UrineDiley Ridge Medical CenterJo-1 extractable nuclear Ab [Units/volume] in SerumDiley Ridge Medical Center Lead [Presence] in The Jewish HospitalLutropin [Units/volume] in Serum or [facility] HospitalMeasurement of monoclonal protein concentrationDiley Ridge Medical CenterMercury [Mass/volume] in The Jewish HospitalMethylmalonate [Moles/volume] in Serum or PlasmaDiley Ridge Medical CenterMG Breast - bilateral ScreeningDiley Ridge Medical CenterMG Breast - bilateral ScreeningDiley Ridge Medical CenterMitochondria M2 IgG Ab [Units/volume] in SerumDiley Ridge Medical CenterMR Cervical spine WO contrastDiley Ridge Medical CenterMR Thoracic spineDiley Ridge Medical CenterMyeloperoxidase Ab [Units/volume] in Serum by ImmunoassayDiley Ridge Medical CenterNeutrophil cytoplasmic Ab.classic [Titer] in Serum by ImmunofluorescenceDiley Ridge Medical CenterNuclear Ab [Titer] in SerumDiley Ridge Medical CenterNuclear Ab [Titer] in SerumDiley Ridge Medical CenterP-ANCA measurementDiley Ridge Medical CenterPathology ReportPathology Report Pathology and Cytology Routine Vaginal lesion Ordered: 02/02/2025NONH HealthcareComment on above: Ordered: 02/02/2025Patient EducationPremier Health [facility]tr Work Phone: Patient referralPremier Health Upper [facility]tr Work Phone: Porphobilinogen [Mass/volume] in UrineDiley Ridge Medical CenterProtein [Mass/volume] in Serum or PlasmaDiley Ridge Medical CenterProtein [Mass/volume] in UrineDiley Ridge Medical CenterProteinase 3 Ab [Units/volume] in Serum by ImmunoassayDiley Ridge Medical CenterPyridoxine [Mass/volume] in Serum or PlasmaDiley Ridge Medical CenterReagin Ab [Presence] in Serum by RPThe Christ HospitalRheumatoid factor [Units/volume] in Serum or PlasmaDiley Ridge Medical CenterRibosomal P Ab [Units/volume] in [facility] Hospitalerum immunofixationHolzer Hospitaljogrens syndrome-A extractable nuclear Ab [Units/volume] in [facility] Sjogrens syndrome-B extractable nuclear Ab [Units/volume] in [facility] Hospitalmith extractable nuclear Ab [Units/volume] in Serum [facility] HospitalUPERFICIAL WOUND CULTURE ([facility] Work Phone: comment on above:Ordered: 11/16/2024Thallium [Mass/volume] in Serum or PlasmaDiley Ridge Medical CenterWest Nile virus IgG Ab [Presence] in Serum by ImmunoassayDiley Ridge Medical CenterWest Nile virus IgM Ab [Presence] in Serum by ImmunoassayVernon Memorial Hospital Immunizations Immunization DateImmunizationNotesCare WkpkvvniPdtpmzry18-11-8541hfbbchg, mumps and rubella virus vaccineGloria [facility] Other [facility] CenterNEGATED: Highlighted row has not occurred!61-75-0682Uqt Shot - Documentation Purposes OnlyGlsenait Keita Other [employer] Other NEGATED: Highlighted row has not occurred!04-16-2022 influenza, seasonal, injectablePatient ObjectionGlsenait Keita Other [facility] Payers DatePayer CategoryPayerPolicy [id number] [id number] Eligibility Medicare/Medicaid [id number] Health InsuranceUNITED HEALTHCARE DUAL COMPLETE [facility] DUAL COMPLETE [id number] 2023-Present [address] [address] [place] [address] [id number] [id number] [id number] [id number] 2023Medicare (Managed Care)[facility] MEDICARE Member Subscriber Plan / Payer (Effective 2022-Present) Name: Taye Gay Relation to Subscriber: Self Name: Taye Gay Subscriber ID: [id number] Payer ID: [id number] (NAIC) Group ID: Not on file Type: Not on file Address: [facility] [address] [place] [id number] 23-74-6191Bbxihkd Health [id number] 2022Medicaid1.2.840.2496[id number] [place] [id number] 2.16840.5.20640[id number] [id number] [id number] 2.16.840.1.908061.3.57[id number] 2.16840.1.383763.3.57[id number] 2.16.840.1.920786.3.57[id number] 2.16.840.1.304618.3.57[id number] 2.16.840.1.775440.3.57[id number] 2.16.840.1.089060.3.57[id number] 2.16.840.1.648458.3.57[id number] 2.16.840.1.296315.3.57[id number] 2.16840.1.937553.3.579.[id number] 2.16840.1.629335.3.57[id number] 2.16840.1.928931.3.579.[id number] 2.16840.1.031661.3.57[id number] 2.160.1.849091.3.57[id number] 2.0.1.215258.3.57[id number] 2.0.1.184331.3.57[id number] 2.0.1.263603.3.57[id number] 2.0.1.748786.3.57[id number] 2.840.1.856452.3.57[id number] 2.0.1.994256.3.57[id number] 2.0.1.315751.3.57[id number] 2.840.1.339800.3.57[id number] 2.16840.1.762632.3.579.2.[id number] 2.840.1.811732.3.57[id number] 2.16.840.1.459[id number] 2.16.840.1.937990.19Unknown [id number] 2.16.840.1.1[id number] 2.16.840.1.6[id number] 2.16.840.1.106588.3.579.2.531 [id number] 2.16.840.1.0[id number] 2.16.840.1.440704.3.579.2.524Evmypmm06473215 2.16.840.1.788627.3.579.2.531 [id number] 2.16.840.1.8[id number] 2.16.840.1.8[id number] 2.16.840.1.791823.3.579.2.531 [id number] 2.16.840.1.915229.3.579.2.161Atubdmv50562277 2.16840.1.92[id number] 2.16840.1.602948.3.579.2.531 Social History DateTypeDetailFacilityUnknown if ever smokedNanomed Skincare, Inc. ([place]) Other Start: 10-07-2023 End: 17-70-8200Zmg Assigned At BirthNoNanomed Skincare, Inc. ([place]) Other Start: 12-17-2021 End: 94-38-4318Lodambw smoking status NHISSmoker (finding)[facility]tart: 75-59-4696Xjb Assigned At BirthFemalCleveland Clinic Euclid Hospitaltart: [birth year]29-1973 End: 00-38-1105Wvcrrmm smoking status NHISSmokes tobacco dailyUC Medical CenterStart: 72-24-5622Catrwfi of tobacco useCigarette Smoker [facility] Work Phone: Start: 27-64-1301Adzlktj use and exposureSmokeless tobacco non-userUC Medical Center Work Phone: Start: 10-07-2023 End: 64-73-8670Zbfvixqyo beverage intakeLifetime non-drinker (finding)[facility] Work Phone: Start: 10-07-2023 End: 79-51-9133Flazntf of Social functionUnTogus VA Medical Center Work Phone: Start: 39-54-0676Zye assigned at birthNot on file [facility] Work Phone: Start: 09-27-2023 End: 74-74-8540Tctlisyf to SARS-CoV-2 (event)Not sureUC Medical CenterStart: 01-29-2023 End: 74-90-5754Skdoreo use and exposureUser of smokeless tobaccoNOMS Healthcare Start: 61-43-3741Mrhiaav CommentSmokes 11-20 cigs per dayNOMS HealthcareStart: 47-32-7081Gbheofs Commentcaffeine intake: occasionalNOMS HealthcareStart: 04-29-2024 End: 38-43-4140ZgwUvsbvj (finding)[facility]art: 07-11-2022 End: 48-08-7899PrnXqnrxoCtjkpylbdc [facility] Procedure CodeEquipment CodeEquipment Original TextEquipment IdentifierDates Start: 13-53-0103Bhu Needle, Diabetic (Novofine 32) 32 gauge x 1/4 needleStart: 19-56-4229Ouz Needle, Diabetic (Novofine 32) 32 gauge x 1/4 needleStart: 32-81-3135Fsq Needle, Diabetic (Novofine 32) 32 gauge x 1/4 needleStart: 06-50-2763Fdl Needle, Diabetic (Novofine 32) 32 gauge x 1/4 needleStart: 23-63-7007Znl Needle, Diabetic (Novofine 32) 32 gauge x 1/4 needleStart: 65-12-8987Oex Needle, Diabetic (Novofine 32) 32 gauge x 1/4 needleStart: 65-14-2781Rfo Needle, Diabetic (Novofine 32) 32 gauge x 1/4 needleStart: 12-49-6369Ppq Needle, Diabetic (Novofine 32) 32 gauge x 1/4 needleStart: 64-78-4963Vvq Needle, Diabetic (Novofine 32) 32 gauge x 1/4 needleStart: 44-81-9348Jyi Needle, Diabetic (Novofine 32) 32 gauge x 1/4 needleStart: 95-67-0394Zlz Needle, Diabetic (Novofine 32) 32 gauge x 1/4 needleStart: 08-20-2024 Goals DatePatient GoalDesired Activity/State Functional Status ObdoGqxqhqnxzlZxstczRmxyrfme81-82-8593Tnhipjqmsr statusPatient at Baseline [facility] Work Phone: 1(988) [phone]aravxrwwv statusPatient at Baseline [facility] Work Phone: 1(270) [phone]kfz statusPatient at Baseline [facility] Work Phone: [phone] statusPatient at Baseline [facility] Work Phone: Mental Status VqucAxbnvohvgwBjlvjtSrqmymcy22-36-0613Plzqugrjf functionCognitive Status [facility] Work Phone: [phone]) [phone]aeisaad functionCognitive Status [facility] Work Phone: 1([phone]) [phone] functionCognitive Status [facility] Work Phone: [phone]) [phone] functionCognitive Status [facility] Work Phone: Clinical Notes 02-27-2021 to 02-09-2025 Note Date & UxoyCcelGduskyye60-81-2549 History of Present illness Narrative* Linwood Irwin [...] NEGATIVE FOR FUNGAL ORGANISMS, ATYPIA, AND MALIGNANCY. [facility] 02/04/2025 0846 Local History of Present Illness Taye presents for follow-up of skin lesions that have been previously biopsied The patient had multiple lesions including a small spot that has resolved with bx, The patient has a follow-up appointment scheduled for the with Dr Best Certified Prosthetist Vice President oncology to assess ongoing treatment needs. Visit [...] biopsy with polypoid hyperplasia Previous vulvectomy by CC - Follow-up appointment scheduled for the 12th [...] Disp: , Rfl: Continuous Blood Gluc Sensor (zePASSyle Brent 14 Day Sensor) [facility], apply 1 SENSOR as directed every14 days [...] Disp: 60 tablet, Rfl: 5 Droplet Pen [place] 32G X [address] [facility], use 1 PEN NEEDLE to inject MEDICATION [...] COLPOSCOPY 09/2021 ESOPHAGEAL DILATION HYSTERECTOMY PARTIAL HYSTERECTOMY WV VULVECTOMY SIMPLE PARTIAL 12/[address] [facility] [address] Joaquin [...] 11-20 cigs per day documented in this encounterHannibal Regional HospitalRkyejhtqxn58-74-9317 History of Present illness Narrative* Linwood Irwin [...] previously underwent surgery for pre-cancerous conditions in [facility], including a vulvectomy The patient has [...] Disp: , Rfl: Continuous Blood Gluc Sensor (FreeStyle Brent 14 Day Sensor) [facility], apply 1 SENSOR as directed every14 days [...] Disp: 60 tablet, Rfl: 5 Droplet Pen [place] 32G X [address] [facility], use 1 PEN NEEDLE to inject MEDICATION [...] by mouth at bedtime, Disp: , Rfl: Ashley SoloStar 300 UNIT/ML injection, inject 20 units [...] COLPOSCOPY 09/2021 ESOPHAGEAL DILATION HYSTERECTOMY PARTIAL HYSTERECTOMY WV VULVECTOMY SIMPLE PARTIAL 12/2018 TONSILLECTOMY VULVECTOMY 12/2017 [...] including a bone rect elisabeth performed in [place]. The lesions are described as looking like [...] ordered and scheduled Referral to Dr Cordoba Certified Prosthetist Vice President Oncology for recurrent lesion Assessment & Plan documented in this encounterHannibal Regional HospitalYehrzhqzva92-69-3673 Radiology Diagnostic study [facility] [place] [address] [place] [address] CT Scan Report Signed Patient: Taye Gay MR#: [id number] : 1955 Acct:[id number] Age/Sex: 69 / F ADM Date: 5 Loc: CT Room: Type: [facility] Attending Dr: Shantel Norton APRN, FLIGHT DIRECTOR-C Copies to: Shantel Norton APRN, CNP~ Ordering [...] Jr., D.O. 02/02/2025 12:36 PM Dictation Location: [place] [address] Transcribed By: [facility] 02/02/25 1236 Dictated By: Edgar Segovia Jr, DO 02/02/25 1232 Signed By: 02/02/25 1236 [facility]09-23-2025 History of Present illness Narrative * Oz [...] medical office). Imaging MR L-s (11/2023, [facility]) - HNP T12-L1 mild ... errol L5-S1 modB . . . . (11/2023, [facility]) - HNP T12-L1 mild ... canal sten L2-3 mod ... errol sten L2-3 modB L4-5-S1 modB US LE (12/2016, [facility]) - atherosclerosis, nl PVR. Testing [facility] (11/2024) - acute L L5-S1 + PN sev . . . . (11/2023) - acute L S1 (nEMG) + PN pattern signif worse . . . . (03/2017, [facility]) - PN pattern Labs - V75=006/15/116/>22.3, was 359/16.7H/328/>22.3 ... A1c=8.4, was 10.4(!) ,,, [...] of Mar pt adm to [facility] for gen weakness & slurred speech, resolved [...] - never done during adm [facility] due to metal . . . . (10/2023, [facility]) - atrophy age-appropriate & ^T2/FLAIR CTA head (03/2024, [facility]) - no stenoses CTA neck(03/2024, [facility]) - < 20% B Testing (q.v.) ... [...] Motor - TA 5-L, unchanged: ___, orig: Industrial Sales Manager 4B ... APB 4R 4+L Sens [...] COLPOSCOPY 09/2021 ESOPHAGEAL DILATION HYSTERECTOMY PARTIAL HYSTERECTOMY WV VULVECTOMY SIMPLE PARTIAL 12/2018 TONSILLECTOMY VULVECTOMY 12/2017 [...] tabs QAM 60 tablet 5 Droplet Pen [place] 32G X [address] [facility] [...] M.D. [facility] ? [address] [facility] [address] ? [place] [id number] ? ? fax Neurology ? Clinical Neurophysiology ? Epilepsy ? Sleep Disorders ? Clinical Informatics documented in this encounterHannibal Regional HospitalBwqcmhkwlj66-72-3077 History of Present illness Narrative* Roland Faust [...] exam, discussion and plan. documented in this [facility] Work Phone: 1([phone]) 714-431709-03-2025 Instructions* Patient Instructions* Edilma Menezes LPN - [...] through Care Everywhere. * Heart Healthy Diet (Chinese) * Quitting smoking (Chinese) documented in this [facility] Work Phone: 1(299) 395-217808-22-2025 History of Present illness Narrative* Oz Kincaid MD - 12/18/2024 1:15 PM EDT [facility] Patient: Taye Gay [address], [address] , Sex: 1955, Female [place], [place] [address] Height: 168 cm Ref Phys: Debbie Kincaid [...] Doub=doublet; Fasc=fasciculation; FFE=full for effort; Fib=fibrillation; Myokym=myokymia; Walcott=myotonic potential; N,0=normal; NR=no response; Polyph=polyphasia; Pos=positive [sharp] wave; RFU=rapidly firing units; Serr =serrated potential (2<phases<5); W&W=waxing and waning pattern INTERPRETATION: This study reveals [facility]MG evidence of a chronic, neuropathic, axonal, sensory > motor process affecting all lower extremity nerves tested. Needle examination demonstrates a tgfybs-ib-plxlwnwl gradient that is most suggestive of peripheral [...] of any radiculopathy. Oz Kincaid M.D. Diplomate, [place] [employer] and [employer] (neurology, epilepsy, sleep medicine) Diplomate, [place] [employer] Clinical Neurophysiology Diplomate, [place] [employer] Preventive [employer] (clinical informatics) . documented in this [facility]08-19-2025 Evaluation note* Diagnosis Onset Date [...] 2024 1:46pmBMI 32.0-32.9,adultacuteSeptember 2024 1:23pmDietary counseling and surveillanceacuteSept2024 1:23pm HyperlipidemiaacuteSeptember 2024 1:23pmHypertensionacuteSeptember 2024 1:23pmPeripheral neuropathyacuteSeptember 2024 1:23pmType 2 diabetes mellitusacuteSeptember 2024 1:23pmVitamin B 12 deficiencyacuteSept2024 1:23pm [facility] Work Phone: [phone]) 695-473608-19-2025 Evaluation note* Diagnosis Onset Date Resolution Status [...] index (BMI) of 30.0 to 30.9 in adultacuteSept2024 1:23pmDietary counseling and surveillanceacuteSept2024 1:23pmHyperlipidemiaacuteSeptember 2024 1:23pmHypertensionacuteSept2024 1:23pmPeripheral neuropathy acuteSept2024 1:23pmType 2 diabetes mellitusacuteSeptember 2024 1:23pmVitamin B 12 deficiencyacuteSeptember 2024 1:23pmCurrent every day smokeracuteSept2024 2:19pmDepressionacuteSeptember 2024 2:19pm Lesion of spleenacuteSept2024 2:19pm [facility] Work Phone: 1([phone] 109-670708-15-2025 History of Present illness Narrative* Oz Kincaid MD - 12/11/2024 1:15 PM EDT [facility] Patient: Taye Gay [address], [address] , Sex: 1955, Female [place] [address] Height: 168 cm Ref Phys: Debbie Kincaid [...] Doub=doublet; Fasc=fasciculation; FFE=full for effort; Fib=fibrillation; Myokym=myokymia; Walcott=myotonic potential; N,0=normal; NR=no response; Polyph=polyphasia; Pos=positive [sharp] [...] -- 36 40 Oz Kincaid M.D. Diplomate, [place] [employer] and Neu[employer] (neurology, epilepsy, sleep medicine) Diplomate, [place] [employer] Clinical Neurophysiology Diplomate, [place] [employer] Preventive [employer] (clinical informatics) . documented in this encounterHannibal Regional HospitalDwcpoxhmfo85-44-3052 History of Present illness Narrative* Karl Fritz [...] if she does decline. documented in this encounterHannibal Regional HospitalXaayntcozm82-94-5030 History of Present illness Narrative* Karl Fritz [...] to their surgery date. documented in this [facility]06-25-2025 Telephone encounter Note* Telephone Encounter - Cali Duque - 10/21/2024 2:44 PM EDT Patient canceled 10/23/24 EMG on 10/20/24 due to an appointment conflict. [facility] HospitalUlvdjguvjx28-48-3967 Miscellaneous Notes* Telephone Encounter - Cali Duque - 10/21/2024 2:44 PM EDT Patient canceled 10/23/24 EMG on 10/20/24 due to an appointment conflict. documented in this [facility]06-24-2025 History of Present illness Narrative* [...] with ulceration and/or pain. documented in this [facility]06-11-2025 Telephone encounter Note* Telephone Encounter - Cali Duque - 10/07/2024 3:49 PM EDT Received call from Raine with [facility] they are happy to take her as a client. [facility] Ptsyqmycep78-69-9211 Miscellaneous Notes* Telephone Encounter - Cali Duque - 10/07/2024 3:49 PM EDT Received call from Raine with [facility] they are happy to take her as a client. documented in this [facility]06-10-2025 History of Present illness Narrative* [...] 6 weeks (around 11/17/2024), or 6-8 w FLIGHT DIRECTOR; after ENMGs. History of Present Illness, Associated [...] gait ataxia. Imaging MR L-s (11/2023, [facility]) - HNP T12-L1 mild ... canal sten L2-3 mod ... errol sten L2-3 modB L4-5-S1 modB US LE (12/2016, [facility]) - atherosclerosis, nl PVR. Testing [facility] (11/2023) - acute L S1 (nEMG) + PN pattern signif worse . . . . (03/2017, [facility]) - PN pattern Labs - W98=355/15/116/>22.3, was 359/16.7H/328/>22.3 ... A1c=8.4, was 10.4(!) ,,, [...] of Mar pt adm to [facility] for gen weakness & slurred speech, resolved [...] MR brain (03/2024) - never done during [facility] due to metal . . . . (10/2023, [facility]) - atrophy age-appropriate & ^T2/FLAIR CTA head (03/2024, [facility]) - no stenoses CTA neck(03/2024, [facility]) - < 20% B Testing (q.v.) ... [...] - A1c=6.[address] release R (07/2017, [facility]). Failed CONTRA - inj (DM). Physical Exam [...] ___, unchanged: ___, orig: ___ Motor - Industrial Sales Manager 4-R 4L ... APB 4B ... LEs - 4+ throughout (worse), somewhat antalgic, unchanged: ___, orig: Industrial Sales Manager 4B ... APB 4R 4+L Sens [...] COLPOSCOPY 09/2021 ESOPHAGEAL DILATION HYSTERECTOMY PARTIAL HYSTERECTOMY WV VULVECTOMY SIMPLE PARTIAL 12/2018 TONSILLECTOMY VULVECTOMY 12/2017 [...] tabs QAM 60 tablet 5 Droplet Pen [place] 32G X [address] [facility] [...] ? [address] ? [place], [place] [address] ? ? fax Neurology ? Clinical Neurophysiology ? Epilepsy ? Sleep Disorders ? Clinical Informatics documented in this encounterHannibal Regional HospitalMhvjkkbkje98-23-6110 Evaluation note* Diagnosis Onset Date Resolution Status Admit Date Atrial fibrillation acuteJune 2024 2:34pmCardiomyopathyacuteJune 2024 2:34pmCongestive heart failureacuteJune 2024 2:34pmDaytime sleepinessacuteJune 2024 2:34pmHypertensionacuteJune 2024 2:34pmHypothyroidacuteJune 2024 2:34pmIntolerance to BiPAP/CPAPacuteJune 2024 2:34pmMajor depression, chronicacuteJune 2024 2:34pmOSA (obstructive sleep apnea)acuteJune 2024 2:34pmSecondary polycythemiaacuteJune 2024 2:34pmAllergy to honey bee venomacuteAugust 2024 1:46pmDepressionacuteAugust 2024 1:46pm [facility] Work Phone: [phone] 600-109906-05-2025 Evaluation note* Diagnosis Onset Date Resolution Status [...] 2024 1:46pm Wound of footacuteAugust 2024 1:46pm [facility] Work Phone: 1([phone]) 403-334005-15-2025 [place] [address] EGD Procedure Note Signed Patient: Taye Gay MR#: [id number] : 1955 Acct:[id number] Age/Sex: 68 / F Adm Date: 5 Loc: Room: Type: [facility] Attending Dr: Manjit Gleason MD Copies [...] MD 09/10/24 1241 Signed By: 09/10/24 1245 [facility]05-15-2025 [place] [address] Gastroenterology H&P Signed Patient: Taye Gay MR#: [id number] : 1955 Acct:[id number] Age/Sex: 68 / F Adm Date: 5 Loc: Room: Type: [facility] Attending Dr: Manjit Gleason MD Copies [...] MD 09/10/24 1233 Signed By: 09/10/24 1241 [facility]04-29-2025 Chief complaint+Reason for visit Narrative* [...] Secondary polycythemia October 01, 2024 2: 34pm [facility] Work Phone: 1(635) 997-427904-24-2025 Evaluation note* Diagnosis Onset Date Resolution Status [...] fibrillationacuteJune 2024 2:34pmCardiomyopathy acuteJune 2024 2:34pmCongestive heart failureacuteJun2024 2:34pm Daytime sleepinessacuteJun2024 2:34pmHypertensionacuteJune 2024 2:34pmHypothyroidacuteJune 2024 2:34pmIntolerance to BiPAP/CPAPacuteOctober 01, 2024 2:34pmMajor depression, chronicacuteJun2024 2:34pmOSA (obstructive sleep apnea)acuteJun2024 2:34pmSecondary polycythemiaacute October 01, 2024 2:34pm [facility] Work Phone: 1(411) 644-195503-26-2025 Evaluation note* Diagnosis Onset Date Resolution Status Admit Date Cigarette nicotine dependence acuteMarch 2024 10:54amCurrent every day smokeracuteMarch 2024 10:54amPAD (peripheral artery disease)acuteMarch 2024 10:54amBMI 32.0-32.9,adultacuteApril 2024 9:57amChronic kidney disease (CKD) stage G2/A2, mildly decreased glomerular filtracuteApril 2024 9:57amDietary counseling and surveillanceacuteApril 2024 9:57amHyperlipidemiaacuteApril 2024 9:57amHypertensionacuteApril 2024 9:57amPeripheral neuropathy acuteApril 2024 9:57amType 2 diabetes mellitusacuteApril 2024 9:57am Vitamin B 12 deficiencyacuteApril 2024 9:57am [facility] Work Phone: 1(483) 437-565603-26-2025 Evaluation note* Diagnosis Onset Date Resolution Status Admit Date Cigarette nicotine dependence acuteMar2024 10:54amCurrent every day smokeracuteMarch 2024 10:54amPAD (peripheral [...] artery disease)acuteApril 2024 1:31pmPeripheral neuropathyacuteApril 2024 1:31pm [facility] Work Phone: 1(754) 356-710503-26-2025 Evaluation note* Diagnosis Onset Date Resolution Status [...] 2024 1:31pmLumbar spondylosisacute September 07, 2024 11:01am [facility] Work Phone: 1([phone]) 920-336803-26-2025 Evaluation note* Diagnosis Onset Date Resolution Status [...] sleep apnea)acuteJune 2024 2:34pmSecondary polycythemiaacuteJune 2024 2:34pm [facility] Work Phone: 1(345) 841-595103-25-2025 History of Present illness Narrative* Oz Kincaid MD - 07/21/2024 2:45 PM EDTAssociated Problem(s): Cognitive decline (Continue current regimen.) [facility] records - neuro consults, EEG, MR, [...] & Plan Cognitive decline (Continue current regimen.) [facility] records - neuro consults, EEG, MR, [...] gait ataxia. Imaging MR L-s (11/2023, [facility]) - HNP T12-L1 mild; canal sten L2-3 mod; errol sten L2-3 modB L4-5-S1 modB US LE (12/2016, [facility]) - atherosclerosis, nl PVR. Testing [facility] (11/2023) - acute L S1 (nEMG) + PN pattern signif worse . . . . (03/2017, [facility]) - PN pattern Labs - G86=735/15/116/>22.3, was 359/16.7H/328/>22.3 ... A1c=8.4, was 10.4(!) ,,, [...] pt is off nortrip. Adm [facility] for possible TIA. Walking drunk , Tim. 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 Imaging MR brain (10/2023, [facility]) - not available via [place] - atrophy [...] ___, orig: ___ Motor - ___, unchanged: Industrial Sales Manager 4B ... APB 4R 4+L, orig: [...] COLPOSCOPY 09/2021 ESOPHAGEAL DILATION HYSTERECTOMY PARTIAL HYSTERECTOMY WV VULVECTOMY SIMPLE PARTIAL 12/2018 TONSILLECTOMY VULVECTOMY 12/2017 [...] Take with meals. Continuous Blood Gluc Sensor (RuangguruStyle Brent 14 Day Sensor) [facility] [...] if tolerated 60 tablet 3 Droplet Pen [place] 32G X [address] [facility] [...] Oz Kincaid M.D. [facility] ? [address] [facility] [address] ? [place], [place] [address] ? ? fax Neurology ? Clinical Neurophysiology ? Epilepsy ? Sleep Disorders ? Clinical Informatics documented in this encounterHannibal Regional HospitalDremkkcmwo17-19-5966 History of Present illness Narrative* Roland Faust [...] exam, discussion and plan. documented in this encounterUnT[facility]us [facility] Work Phone: 1(715) 503-489702-28-2025 Instructions* Patient Instructions* Melina Lee LPN - [...] 6 months with ekg documented in this encounterUC Medical Center Work Phone: 1(247) 422-629401-21-2025 Telephone encounter Note* Telephone Encounter - Cali Villagomez 05/19/2024 11:20 AM EST Daughter same day canceled same day canceled today's appointment due to overslept. RS for 06/02/24 [facility] HospitalGbeundgxzr67-80-0657 Miscellaneous Notes* Telephone Encounter - Cali Laneshreyas - 05/19/2024 11:20 AM EST Daughter same day canceled same day canceled today's appointment due to overslept. RS for 06/02/24 documented in this encounterHannibal Regional HospitalCyjvqbieov53-34-6131 [place] [address] Neurology Progress Note Signed with Addenda Patient: Taye Gay MR#: [id number] : 1955 Acct:[id number] Age/Sex: 68 / F Adm Date: 4 Loc: 3T Room: [address] [place] [address] Type: ADM IN Attending Dr: Priscilla Lang MD Copies to: ~ ADDENDUM1 Patient has refused to remove her nail stateless for MRI. Unable to confirm whether or [...] may be metabolic in nature and not parts counter representative necessarily of transient ischemia or of [...] DO 5 0608 Signed By: 04/30/24 0708 [facility]01-02-2025 Discharge summary Author Priscilla Lang [facility] Medical CenterNote Date/TimeJanuary 2024 10:28am [address] [address] Discharge Summary Signed Patient: Taye Gay MR#: [id number] : 1955 Acct:[id number] Age/Sex: 68 / F Adm Date: 4 Loc: 3T Room: [address] [place] [address]: Priscilla Lang MD Copies to: [...] taking multiple medications that could potentially cause EFFICIENCY MINER side effect and toxic encephalopathy. Diagnosis is [...] polypharmacy regimen to reduce her risk of EFFICIENCY MINER side effects or drug?drug interaction.At this time, [...] ask her primary care doctor to obtain [facility] record entirely to address abnormalities seen [...] primary care provider to obtain [facility] records entirely to follow up on all [...] drug?drug interaction. Discharging you from [facility] does not mean that your medical care [...] constipation) (DME) pen needle, diabetic [Sure-Fine Pen [place]] .Route lidocaine 5 % ointment 1 applic [...] % (Auto) 63.5, Lymph % (Auto) 24.9, [place] % (Auto) 8.3, Eos % (Auto) 2.9, Baso % (Auto) 0.4, Nucleat RBC Rel Count 0.0, Neut # (Auto) 4.6, Lymph # (Auto) 1.8, [place] # (Auto) 0.6, Eos # (Auto) 0.2, [...] <Electronically signed by Priscilla Lang MD> 04/30/24 [facility] Work Phone: 1(567) 199-916501-02-2025 [place] [address] Discharge Summary Signed Patient: Taye Gay MR#: [id number] : 1955 Acct:[id number] Age/Sex: 68 / F Adm Date: 4 Loc: Room: [address] [place] [address]: Priscilla Lang MD Copies to: [...] taking multiple medications that could potentially cause EFFICIENCY MINER side effect and toxic encephalopathy. Diagnosis is [...] polypharmacy regimen to reduce her risk of EFFICIENCY MINER side effects or drug?drug interaction.At this time, [...] ask her primary care doctor to obtain [facility] record entirely to address abnormalities seen [...] primary care provider to obtain [facility] records entirely to follow up on all [...] drug?drug interaction. Discharging you from [facility] does not mean that your medical care [...] constipation) (DME) pen needle, diabetic [Sure-Fine Pen [place]] .Route lidocaine 5 % ointment 1 applic [...] % (Auto) 63.5, Lymph % (Auto) 24.9, [place] % (Auto) 8.3, Eos % (Auto) 2.9, Baso % (Auto) 0.4, Nucleat RBC Rel Count 0.0, Neut # (Auto) 4.6, Lymph # (Auto) 1.8, [place] # (Auto) 0.6, Eos # (Auto) 0.2, [...] MD 04/30/24 1016 Signed By: 04/30/24 1028 [facility]01-01-2025 Consult note Author Lit Clark [facility] CenterNote Date/TimeJanuary 2024 11:07am [place] [address] Neurology Consult Note Signed Patient: Taye Gay MR#: [id number] : 1955 Acct:[id number] Age/Sex: 68 / F Adm Date: 4 Loc: 3T Room: [address] [place] [address] Type: ADM IN Attending Dr: Priscilla Lang MD Copies to: DO Sandra Garrido DO Rafik Massouh, MD~ HPI Consult Date: 04/29/24 Dog Breeder: Lit Clark DO Reason for consult: Slurred [...] unless noted below or in HPI [facility] Medical History BMI 32.0-32.9,adult Abnormal [...] (Stool Softener) 100 mg PO DAILY PRN taxsmxcrqeub66/14/24 [History Confirmed 04/28/24] multivitamin 1 tab PO DAILY 06/12/23 [History Confirmed 04/28/24] pen needle, diabetic [Sure-Fine Pen [place]] 06/12/23 [History Confirmed 04/28/24] metformin 500 mg [...] Bowling M.D.04/28/2024 9:46 PM Dictation Location: [place] [address] 04/28/24 19:44 IMPRESSION: No acute intracranial pathology. No evidence of focal stenosis, aneurysmal dilatation, dissection or occlusion. Impression dictated by: Oz Bowling M.D.04/28/2024 9:44 PM Dictation Location: [place] [address] Assessment/Plan (1) Atrial fibrillation: Qualifiers: Atrial fibrillation [...] may be metabolic in nature and not parts counter representative necessarily of transient ischemia or of [...] follow. Documented By: Lit Clark DO 5 1036 Signed By: <Electronically signed by Lit Clark DO> 04/29/24 1103 [facility] Work Phone: 1(458) 486-452801-01-2025 Progress note Author Priscilla Lang [facility] CenterNote Date/TimeJanuary 2024 11:02am [place] [address] Hospitalist Progress Note Signed Patient: Taye Gay MR#: [id number] : 1955 Acct:[id number] Age/Sex: 68 / F Adm Date: 4 Loc: 3T Room: [address] [place] [address] Type: ADM IN Attending Dr: Priscilla Lang [...] providers. Documented By: Priscilla Lang MD 04/29/24 1050 Signed By: <Electronically signed by Priscilla Lang MD> 04/29/24 1107 [facility] Work Phone: 1(811) 615-734701-01-2025 [place] [address] Neurology Consult Note Signed Patient: Taye Gay MR#: [id number] : 1955 Acct:[id number] Age/Sex: 68 / F Adm Date: 4 Loc: Room: [address] [place] [address] Type: ADM IN Attending Dr: Priscilla Lang MD Copies to: DO Sandra Garrido DO Rafik Massouh, MD~ HPI Consult Date: 04/29/24 Dog Breeder: Lit Clark DO Reason for consult: Slurred [...] unless noted below or in HPI [facility] Medical History BMI 32.0-32.9,adult Abnormal [...] Father Heart disease History of stroke [facility] Problem: Diagnosed with Stroke Cancer throat [...] (Stool Softener) 100 mg PO DAILY PRN zkaxvmmjwkfl52/14/24 [History Confirmed 04/28/24] multivitamin 1 tab PO DAILY 06/12/23 [History Confirmed 04/28/24] pen needle, diabetic [Sure-Fine Pen [place]] 06/12/23 [History Confirmed 04/28/24] metformin 500 mg [...] Oz Bowling M.D.04/28/2024 9:46 PM Dictation Location: [facility]--[address] 04/28/24 19:44 IMPRESSION: No acute [...] may be metabolic in nature and not parts counter representative necessarily of transient ischemia or of [...] DO 5 0858 Signed By: 04/29/24 1107 [facility]01-01-2025 [place] [address] Hospitalist Progress Note Signed Patient: Taye Gay MR#: [id number] : 1955 Acct:[id number] Age/Sex: 68 / F Adm Date: 4 Loc: Room: [address] [place] [address] Type: ADM IN Attending Dr: Priscilla Lang [...] of dementia, possible Alzheimer's dementia -continue home lgpuxppuq72 mg twice daily and donepezil 20 mg [...] MD 04/29/24 1059 Signed By: 04/29/24 1102 [facility]01-01-2025 History and physical note Author Jori Hearn [facility] CenterNote Date/TimeJanuary 2024 6:39[place] [address] Hospitalist H&P Signed Patient: Taye Gay MR#: [id number] : 1955 Acct:[id number] Age/Sex: 68 / F Adm Date: 4 Loc: 3T Room: [address] [place] [address] Type: ADM IN Attending Dr: Jori Hearn [...] of dementia, possible Alzheimer's dementia -continue home naerofoui58 mg twice daily and donepezil 20 mg daily 12. Atrial fibrillation - continue Eliquis 5 mg twice daily for anticoagulationand carvedilol 12.5 mg twice daily. EKG in ER shows NSR 13. Hypoxia - no respiratory distress or cardiopulmonary complaints to accompany this. Will monitortelemetry and address as needed [facility] Medical History BMI 32.0-32.9,adult Abnormal [...] (Stool Softener) 100 mg PO DAILY PRN vouhqbfhokzo58/14/24 [History Confirmed 04/28/24] multivitamin 1 tab PO DAILY 06/12/23 [History Confirmed 04/28/24] pen needle, diabetic [Sure-Fine Pen [place]] 06/12/23 [History Confirmed 04/28/24] metformin 500 mg [...] % (Auto) 24.6 % (.) 04/28/24 19:54 [place] % (Auto) 7.6 % (.) 04/28/24 19:54 Eos % (Auto) 2.7 % (.) 04/28/24 19:54 Baso % (Auto) 1.1 % (.) 04/28/24 19:54 Nucleat RBC Rel Count 0.2 /100 WBC (0-0.5) 04/28/24 19:54 Neut # (Auto) 6.5 x10E3/uL (1.8-7.7) 04/28/24 19:54 Lymph # (Auto) 2.5 x10E3/uL (1.00-4.8) 04/28/24 19:54 [place] # (Auto) 0.8 x10E3/uL (0.0-0.8) 04/28/24 19:54 [...] pH 5.5 (5.0-9.0) 04/28/24 22:02 Ur Specific [place] 1.038 (1.001-1.030) H 04/28/24 22:02 Urine Protein [...] signed by Jori Hearn DO> 04/29/24 0639 [facility] Work Phone: 1(188) 423-230201-01-2025 History and physical [address] [address] Hospitalist H&P Signed Patient: Taye Gay MR#: [id number] : 1955 Acct:[id number] Age/Sex: 68 / F Adm Date: 4 Loc: Room: [address] [place] [address] Type: ADM IN Attending Dr: Jori Hearn [...] of dementia, possible Alzheimer's dementia -continue home rdhriefqe40 mg twice daily and donepezil 20 mg daily 12. Atrial fibrillation - continue Eliquis 5 mg twice daily for anticoagulationand carvedilol 12.5 mg twice daily. EKG in ER shows NSR 13. Hypoxia - no respiratory distress or cardiopulmonary complaints to accompany this. Will monitortelemetry and address as needed [facility] Medical History BMI 32.0-32.9,adult Abnormal [...] Father Heart disease History of stroke [facility] Problem: Diagnosed with Stroke Cancer throat [...] (Stool Softener) 100 mg PO DAILY PRN ldbbhkdgyyfm38/14/24 [History Confirmed 04/28/24] multivitamin 1 tab PO DAILY 06/12/23 [History Confirmed 04/28/24] pen needle, diabetic [Sure-Fine Pen [place]] 06/12/23 [History Confirmed 04/28/24] metformin 500 mg [...] % (Auto) 24.6 % (.) 04/28/24 19:54 [place] % (Auto) 7.6 % (.) 04/28/24 19:54 Eos % (Auto) 2.7 % (.) 04/28/24 19:54 Baso % (Auto) 1.1 % (.) 04/28/24 19:54 Nucleat RBC Rel Count 0.2 /100 WBC (0-0.5) 04/28/24 19:54 Neut # (Auto) 6.5 x10E3/uL (1.8-7.7) 04/28/24 19:54 Lymph # (Auto) 2.5 x10E3/uL (1.00-4.8) 04/28/24 19:54 [place] # (Auto) 0.8 x10E3/uL (0.0-0.8) 04/28/24 19:54 [...] (25.1-36.5) 04/28/24 19:54 PHA Creatinine Clear 77.21 12/31/24 19:54 Sodium 137 mmol/L (136-145) 04/28/24 19:54 [...] pH 5.5 (5.0-9.0) 04/28/24 22:02 Ur Specific [place] 1.038 (1.001-1.030) H 04/28/24 22:02 Urine Protein [...] DO 04/28/24 57 Signed By: 04/29/24 0639 [facility]12-31-2024 Radiology Diagnostic study note [facility] Main [place] [address] [place] [address] CT Scan Report Signed Patient: Taye Gay MR#: [id number] : 1955 Acct:[id number] Age/Sex: 68 / F ADM Date: 4 Loc: ER Room: Type: [facility] ER Attending Dr: Copies to: Wesley Villafuerte PA-C~ Ordering Provider: Wesley Villafuerte PA-C Date of Service: 04/28/24 CT/CT angio head: weakness ([id number]) CT/CT angio neck: weakness ([id number]) CT/CT head/brain wo con: weakness CT head/brain [...] Bowling M.D.04/28/2024 9:44 PM Dictation Location: [place] [address] Transcribed By: AMY 04/28/242143 Dictated By: Oz Bowling II, MD 04/28/242129 Signed By: 04/28/242143 [facility] Work Phone: 1(155) 420-549712-31-2024 Evaluation note* Diagnosis Onset Date Resolution Status Admit Date High granulocyte count acuteDece2023 9:53amSecondary polycythemiaacuteDece2023 9:53amBMI 32.0-32.9,adultacuteDecemb2023 11:14amChronic kidney disease (CKD) stage G2/A2, mildly decreased glomerular filtracuteDecember 2023 11:14amDietary counseling and surveillanceacutece2023 11:14am HyperlipidemiaacuteDecemb2023 11:14amHypertensionacutecemb2023 11:14amPeripheral neuropathyacutecemb2023 11:14amType 2 diabetes mellitusacutecemb2023 11:14amVitamin B 12 deficiencyacutece2023 11:14amAtrial fibrillationacutecemb2023 10:38pmGeneralized weaknessacutecemb2023 10:38pmInsulin dependent diabetes mellitusacute April 28, 2024 10:38pmTIA (transient ischemic attack)acuteApril 28, 2024 10:38pmCigarette nicotine dependenceacuteJanuary 2024 1:02pmDisordered sleepacuteJanuary 2024 1:02pmHypotensionacuteJanuary 2024 1:02pmStool incontinenceacuteJanuary 2024 1:02pmTIA (transient ischemic attack)acute May 07, 2024 1:02pm [facility] Work Phone: 1([phone]) 844-818612-31-2024 Evaluation note* Diagnosis Onset Date Resolution Status Admit Date High granulocyte count acuteDecember 2023 9:53amSecondary polycythemiaacuteceer 2023 9:53amBMI 32.0-32.9,adultacuteDecember 2023 11:14amChronic kidney disease (CKD) stage G2/A2, mildly decreased glomerular filtracuteDeceer 2023 11:14amDietary counseling and surveillanceacuteApril 28, 2024 11:14am Hyperlipidemiaacutecember 2023 11:14amHypertensionacuteDeceer 2023 11:14amPeripheral neuropathyacuteceer 2023 11:14amType 2 diabetes mellitusacuteceer 2023 11:14amVitamin B 12 deficiencyacuteceer 2023 11:14amAtrial fibrillationacuteer 2023 10:38pmGeneralized weaknessacuteceer 2023 10:38pmInsulin dependent diabetes mellitusacute April 28, 2024 10:38pmTIA (transient ischemic attack)acuteDe2023 10:38pmCigarette nicotine dependenceacuteJanuary 2024 1:02pmDisordered sleepacuteJanuary 2024 1:02pmHypotensionacuteJanuary 2024 1:02pmStool incontinenceacuteJanuary 2024 1:02pmTIA (transient ischemic attack)acute May 07, 2024 1:02pmCigarette nicotine dependenceacuteMarch 2024 10:54amCurrent every day smokeracuteMarch 2024 10:54amPAD (peripheral artery disease)acuteMarch 2024 10:54am [facility] Work Phone: 1(954) 174-336412-17-2024 Evaluation note* Diagnosis Onset Date Resolution Status Admit Date High granulocyte count acuteDecember 2023 9:30amSecondary polycythemiaacuteDecember 2023 9:30amBMI 32.0-32.9,adultacuteDecember 2023 11:14amChronic kidney disease (CKD) stage G2/A2, mildly decreased glomerular filtracuteDecember 2023 11:14amDietary counseling and surveillanceacutecember 2023 11:14am HyperlipidemiaacuteDecember 2023 11:14amHypertensionacuteDecember 2023 11:14amPeripheral neuropathyacuteDecember 2023 11:14amType 2 diabetes mellitusacuteDecember 2023 11:14amVitamin B 12 deficiencyacuteDecember 2023 11:14amTIA (transient ischemic attack)acuteDece2023 10:38pm [facility] Work Phone: 1(374) 719-136912-17-2024 Evaluation note* Diagnosis Onset Date Resolution Status Admit Date High granulocyte count acuteDecember 2023 9:30amSecondary polycythemiaacuteDecember 2023 9:30amBMI 32.0-32.9,adultacuteDecember 2023 11:14amChronic kidney disease (CKD) stage G2/A2, mildly decreased glomerular filtracuteDecember 2023 11:14amDietary counseling and surveillanceacutecember 2023 11:14am HyperlipidemiaacuteDecember 2023 11:14amHypertensionacuteDecember 2023 11:14amPeripheral neuropathyacuteDecember 2023 11:14amType 2 diabetes mellitusacuteDecember 2023 11:14amVitamin B 12 deficiencyacuteDecember 2023 11:14amAtrial fibrillationacuteDecember 2023 10:38pmGeneralized weaknessacutecember 2023 10:38pmInsulin dependent diabetes mellitusacute April 28, 2024 10:38pmTIA (transient ischemic attack)acutecemb2023 10:38pm [facility] Work Phone: 1(614) 932-909112-17-2024 Evaluation note* Diagnosis Onset Date Resolution Status Admit Date High granulocyte count acuteDecember 2023 9:30amSecondary polycythemiaacuteDecember 2023 9:30amHigh granulocyte countacutecember 2023 9:53amSecondary polycythemiaacuteDecember 2023 9:53amBMI 32.0-32.9,adultacuteDecember 2023 11:14amChronic kidney disease (CKD) stage G2/A2, mildly decreased glomerular filtracuteDece2023 11:14amDietary counseling and surveillanceacutecember 2023 11:14amHyperlipidemiaacutecember 2023 11:14amHypertensionacutecember 2023 11:14amPeripheral neuropathy acutecemb2023 11:14amType 2 diabetes mellitusacutecember 2023 11:14amVitamin B 12 deficiencyacutecember 2023 11:14amAtrial fibrillationacutecember 2023 10:38pmGeneralized weaknessacuteDecember 2023 10:38pmInsulin dependent diabetes mellitusacuteDecember 2023 10:38pmTIA (transient ischemic attack)acuteApril 28, 2024 10:38pmCigarette nicotine dependenceacuteJanuary 2024 1:02pm [facility] Work Phone: 1(234) 225-175912-17-2024 Evaluation note* Diagnosis Onset Date Resolution Status Admit Date High granulocyte count acuteDecember 2023 9:30amSecondary polycythemiaacutecember 2023 9:30amHigh granulocyte countacuteDecember 2023 9:53amSecondary polycythemiaacuteDeceer 2023 9:53amBMI 32.0-32.9,adultacuteDecember 2023 11:14amChronic kidney disease (CKD) stage G2/A2, mildly decreased glomerular filtracuteDecember 2023 11:14amDietary counseling and surveillanceacuteDeceer 2023 11:14amHyperlipidemiaacuteDecember 2023 11:14amHypertensionacuteDecember 2023 11:14amPeripheral neuropathy acuteDeceer 2023 11:14amType 2 diabetes mellitusacuteer 2023 11:14amVitamin B 12 deficiencyacuteceer 2023 11:14amAtrial fibrillationacuteceer 2023 10:38pmGeneralized weaknessacuteer 2023 10:38pmInsulin dependent diabetes mellitusacuteer 2023 10:38pmTIA (transient ischemic attack)acuteDeceer 2023 10:38pmCigarette nicotine dependenceacuteJanuary 2024 1:02pmDisordered sleepacuteJanuary 2024 1:02pmHypotensionacuteJanuary 2024 1:02pmStool incontinenceacute Keyla 2024 1:02pmTIA (transient ischemic attack)acuteJanuary 2024 1:02pm [facility] Work Phone: 1(103) 651-892312-11-2024 History of Present illness Narrative* Karl Fritz DPM - 04/08/2024 4:00 PM EST Images from the original note were not included. HPI: Patient presents today complaining of an ulcer on the lateral 5th right foot. Patient has pain withwalking and standing due to this lesion. Patient has tried [facility] for treatment, x-ray, antibiotic, (not taking [...] 7. RTC: 2 weeks. 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 History of Present Illness, Associated Treatments and [...] well controlled. Imaging MR L-s (11/2023, [facility]) - HNP T12-L1 mild; canal sten L2-3 mod; errol sten L2-3 modB L4-5-S1 modB US LE (12/2016, [facility]) - atherosclerosis, nl PVR. Testing [facility] (11/2023) - acute L S1 (nEMG) + PN pattern signif worse . . . . (03/2017, [facility]) - PN pattern Labs - J75=346/15/116/>22.3, was 359/16.7H/328/>22.3 ... 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 APB 4R 4+L, orig: [...] COLPOSCOPY 09/2021 ESOPHAGEAL DILATION HYSTERECTOMY PARTIAL HYSTERECTOMY WV VULVECTOMY SIMPLE PARTIAL 12/2018 TONSILLECTOMY VULVECTOMY 12/2017 [...] in the morning. Continuous Blood Gluc Sensor (RuangguruStyle Brent 14 [address]ensor) [facility] [...] if tolerated 60 tablet 3 Droplet Pen [place] 32G X [address] [facility] [...] Oz Kincaid M.D. [facility] ? [address] [facility] [address] ? [place], [place] [address] ? ? fax Neurology ? Clinical Neurophysiology ? Epilepsy ? Sleep Disorders ? Clinical Informatics documented in this encounterHannibal Regional HospitalTwkfdkfdko12-53-5795 History of Present illness Narrative* Roland Faust [...] By signing my name below, Vania Bardales RJ, Scribe attest that this documentation has been [...] exam, discussion and plan. documented in this encounterUC Medical Center Work Phone: 1(953) 519-582911-27-2024 Instructions* Patient Instructions* Dave Meneses MA - [...] time of your visit. documented in this encounterUC Medical Center Work Phone: 1([phone]) 755-341710-29-2024 History of Present illness Narrative* Oz Kincaid MD - 02/25/2024 2:43 PM EDTAssociated Problem(s): PO positive Get Dr. Gonzalez's note (2nd request). * Oz Kincaid MD - 02/25/2024 2:15 PM EDTAssociated Problem(s): Cognitive decline Add memantine 10 -> bid. Then add donepezil 10, titrate. Handout. Get MR images transferred to [facility] PACS for my review. * Oz Kincaid [...] titrate. Handout. Get MR images transferred to [facility] PACS for my review. Neurogenic pain (Continue [...] well controlled. Imaging MR L-s (11/2023, [facility]) - HNP T12-L1 mild; canal sten L2-3 mod; errol sten L2-3 modB L4-5-S1 modB US LE (12/2016, [facility]) - atherosclerosis, nl PVR. Testing [facility] (11/2023) - acute L S1 (nEMG) + PN pattern signif worse . . . . (03/2017, [facility]) - PN pattern Labs - W21=527/15/116/>22.3, was 359/16.7H/328/>22.3 ... 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 APB 4R 4+L, orig: [...] COLPOSCOPY 09/2021 ESOPHAGEAL DILATION HYSTERECTOMY PARTIAL HYSTERECTOMY WV VULVECTOMY SIMPLE PARTIAL 12/2018 TONSILLECTOMY VULVECTOMY 12/2017 [...] 100 mg in the evening. Droplet Pen [place] 32G X [address] [facility] [...] ? [address] ? [place], [place] [address] ? ? fax Neurology ? Clinical Neurophysiology ? Epilepsy ? Sleep Disorders ? Clinical Informatics documented in this encounterHannibal Regional HospitalYmwujdtkxk49-68-7159 History of Present illness Narrative* Karl Fritz DPM - 02/10/2024 2:00 PM EDT Images from the original note were not included. HPI: Patient presents today complaining of an ulcer on the plantar 1st met right foot. They have noticedthis for the past month (10/2023). Patient has pain with walking and standing due to this lesion. Patient has tried [facility] for treatment, x-ray, antibiotic, (not taking [...] 7. RTC: 2 weeks. documented in this encounterHannibal Regional HospitalIwtdddmort08-60-3161 History of Present illness Narrative* Karl Fritz DPM - 01/27/2024 10:30 AM EDT Images from the original note were not included. HPI: Patient presents today complaining of an ulcer on the plantar 1st met right foot. They have noticedthis for the past month (10/2023). Patient has pain with walking and standing due to this lesion. Patient has tried [facility] for treatment, x-ray, antibiotic, (not taking [...] 1 week for recheck. documented in this encounterHannibal Regional HospitalElitzohglc59-30-9366 History of Present illness Narrative* Karl Fritz [...] 1 week for recheck. documented in this encounterHannibal Regional HospitalJiinycgjec00-97-2886 Telephone encounter Note* Telephone Encounter - Cali Duque - 01/10/2024 2:34 PM EDT Called and spoke with Corinna twice both times got disconnected. On purpose or by accident not sure, second time Corinna was given Dr Kincaid's answer. Not sure if she got full and complete answer, but she got enough of it. [facility] HospitalKokwfgupsl33-31-0592 Miscellaneous Notes* Telephone Encounter - Cali Duque [...] x several days, then 300 bid Corinna [phone] documented in this encounterHannibal Regional HospitalHfjzisbsod73-76-2669 Telephone encounter Note* Telephone Encounter - Cali Dunia - 01/08/2024 12:37 PM EDT Daughter (Corinna Ayala) called, She was talking with Taye's Nurse, They would like to know if Gabapentin would be a better option for Taye than the PGB? You just inc her PGB from 1 cap bid to 150/300 x several days, then 300 bid Corinna [phone] [facility] HospitalUgsbnajkel52-22-2416 History of Present illness Narrative* Oz Kincaid [...] well controlled. Imaging MR L-s (11/2023, [facility]) - HNP T12-L1 mild; canal sten L2-3 mod; errol sten L2-3 modB L4-5-S1 modB US LE (12/2016, [facility]) - atherosclerosis, nl PVR. Testing [facility] (11/2023) - acute L S1 (nEMG) + PN pattern signif worse . . . . (03/2017, [facility]) - PN pattern Labs - R90=190/15/116/>22.3, was 359/16.7H/328/>22.3 ... 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 APB 4R 4+L, orig: [...] COLPOSCOPY 09/2021 ESOPHAGEAL DILATION HYSTERECTOMY PARTIAL HYSTERECTOMY WV VULVECTOMY SIMPLE PARTIAL 12/2018 TONSILLECTOMY VULVECTOMY 12/2017 [...] in the morning. Continuous Blood Gluc Sensor (RuangguruStyle Brent 14 Day Sensor) [facility] apply 1 SENSOR as directed every 14 days use with DEVICE to MONIT... (REFER TO PRESCRIPTION NOTES). cyanocobalamin (Vitamin B-12) 2500 MCG tablet Docusate Sodium (DSS) 100 MG capsule Take 100 mg by mouth in the morning and 100 mg in the evening. Droplet Pen [place] 32G X [address] [facility] [...] 01/07/2024. Oz Kincaid M.D. documented in this encounterHannibal Regional HospitalFhxwytqaqh83-97-4427 History of Present illness Narrative* Karl Fritz [...] due to this lesion. Patient has tried [facility] for treatment, x-ray, antibiotic, (not taking [...] site with sean vega. She does have [facility] and updated orders will be sent. [...] 7. RTC: 2 weeks. documented in this encounterHannibal Regional HospitalLdvrrxktxy94-82-9296 History of Present illness Narrative* Oz Kincaid [...] arranged Oz Kincaid M.D. documented in this [facility]08-19-2024 History of Present illness Narrative* Roland Faust [...] exam, discussion and plan. documented in this encounterUC Medical Center Work Phone: 1(989) 423-415508-19-2024 Instructions* Patient Instructions* Sofie Dean LPN - [...] to Increase physical activity. documented in this encounterUC Medical Center Work Phone: 1(558) 748-820407-17-2024 History of Present illness Narrative* Jonas Ch [...] Cardiology 2. Nonischemic cardiomyopathy (Multi) Resolved with jain of sinus rhythm 3. Hypercholesteremia Review of [...] exam, discussion and plan. documented in this encounterUC Medical Center Work Phone: 1(469) 784-718707-17-2024 Instructions* Patient Instructions* Dakota Barraza RN - [...] to Increase physical activity documented in this [facility] Work Phone: 1(570) 130-840807-15-2024 Progress note Author Chaka Frye [facility] November 11, 2023 4:15pmNote Date/TimeJuly 2023 4:15pm[place] [address] Hospitalist Progress Note Signed Patient: Taye Gay MR#: [id number] : 1955 Acct:[id number] Age/Sex: 67 / F Adm Date: 4 Loc: 4N Room: 7D9155-9 Type: ADM IN Attending Dr: Chaka Frye [...] signed by Chaka Frye MD> 11/11/23 1615 [facility] Work Phone: 1(687) 382-992507-15-2024 Consult note Author Lit Clark [facility] November 11, 2023 3:11pmNote Date/TimeJuly 2023 10:43[place] [address] Neurology Consult Note Signed Patient: Taye Gay MR#: [id number] : 1955 Acct:[id number] Age/Sex: 67 / F Adm Date: 4 Loc: 4N Room: [address] [place] [address] Type: ADM IN Attending Dr: Chaka Frye MD Copies to: DO Geraldo Garrido MD, RES MD Sandra Mar, ~ HPI Consult Date: 11/11/23 Dog Breeder: Geraldo Vo MD, RES Reason for consult: Progressive generalized weakness Consult Narrative HPI: Taye Gay is a 67 y.o. female with a PMH of esophageal stricture, cigarette smoker, GERD, HTN, type 2 diabetes mellitus, HLD, CKD stage G2/A2, peripheral neuropathy and vit B12 deficiency who presented to [facility] on 11/10[facility]23 for concerns regarding generalized weakness. Neurology was consulted for evaluation of generalized weakness. Additional HPI is noted in Assessment and Plan. [facility] Medical History History of esophageal [...] Confirmed 11/09/23] pen needle, diabetic [Sure-Fine Pen [place]] 06/12/23 [History Confirmed 11/09/23] omeprazole 20 mg [...] Oz Bowling M.D.11/10/2023 1:15 PM Dictation Location: [facility] Therapy Recommendations Therapy Recommendations: OT Recommendations OT Recommended Discharge Correction Facility Location OT Recommended Services at Physical Therapy,Occupational Therapy Discharge PT Recommendations PT Recommended Discharge Correction Facility Location PT Recommended Services at Physical Therapy,Occupational Therapy Discharge Assessment/Plan (1) Ambulatory dysfunction: (2) Weakness: (3) Hypothyroid: Qualifiers: Hypothyroidism type: unspecified Qualified Code(s): E03.9 - Hypothyroidism, unspecified (4) Hypomagnesemia: (5) Type 2 diabetes mellitus with hyperglycemia: Qualifiers: Diabetes mellitus skilled nursing insulin use: unspecified terminal operations manager insulin use status Qualified Code(s): E11.65 - Type 2 diabetes mellitus with hyperglycemia (6) Vitamin B 12 deficiency: Plan CONSULT REASON: Generalized weakness HPI: Taye Gay is a 67 y.o. female with a PMH of esophageal stricture, cigarette smoker, GERD, HTN, type 2 diabetes mellitus, HLD, CKD stage G2/A2, peripheral neuropathy and vit B12 deficiency who presented to [facility] on 11/10/23 for concerns regarding [...] signed by MD GAGE Vo> 11/11/23 1043 [facility] Work Phone: [phone] Progress note Author Kirt Renae [facility] November 10, 2023 12:24pmNote Date/TimeJuly 2023 12:00pm[place] [address] Hospitalist Progress Note Signed Patient: Taye Gay MR#: [id number] : 1955 Acct:[id number] Age/Sex: 67 / F Adm Date: 4 Loc: 4N Room: 6L4405-9 Type: ADM IN Attending Dr: Kirt Renae [...] Tablet PO 11/09/24 08:59 15 mg HS APRMJIT Administration Sodium Chloride 0 ml 11/09/23 22:07 [...] ESR and CRP -Obtain anti Sushma, Anti SPECIAL SERVICE REPRESENTATIVE, anti dsDNA -Obtain CT head without contrast [...] signed by Kirt Renae MD> 11/10/23 1224 [facility] Work Phone: 1([phone] History and physical note Author Jluis Campos [facility] November 10, 2023 6:20amNote Date/TimeJuly 2023 6:11am[address] [address] Hospitalist H&P Signed Patient: Taye Gay MR#: [id number] : 1955 Acct:[id number] Age/Sex: 67 / F Adm Date: 4 Loc: 4N Room: 3Z5875-5 Type: ADM IN Attending Dr: Jluis Campos [...] unless noted below or in HPI [facility] Medical History History of esophageal [...] Confirmed 11/09/23] pen needle, diabetic [Sure-Fine Pen [place]] 06/12/23 [History Confirmed 11/09/23] omeprazole 20 mg [...] weaknesses were noted, patient unable to ambulate. Umvv-hs-gaij test was normal. No tremors or ataxia with cpawvv-yv-twbr movements. Neuro: AOx3, CN II-VII intact. Moves [...] % (Auto) 26.0 % (.) 11/10/23 03:41 [place] % (Auto) 8.2 % (.) 11/10/23 03:41 Eos % (Auto) 3.7 % (.) 11/10/23 03:41 Baso % (Auto) 0.9 % (.) 11/10/23 03:41 Nucleat RBC Rel Count 0.1 /100 WBC (0-0.5) 11/10/23 03:41 Neut # (Auto) 5.2 x10E3/uL (1.8-7.7) 11/10/23 03:41 Lymph # (Auto) 2.2 x10E3/uL (1.00-4.8) 11/10/23 03:41 [place] # (Auto) 0.7 x10E3/uL (0.0-0.8) 11/10/23 03:41 [...] pH 6.0 (5.0-9.0) 11/10/23 05:02 Ur Specific [place] 1.007 (1.001-1.030) 11/10/23 05:02 Urine Protein Negative [...] <Electronically signed by Jluis Campos DO> 11/10/23619 [facility] Work Phone: [phone] [facility] History of Present illness Narrative* [...] to make adjustments and amiodarone before my detention. Vitals: 10/07/23 0948 BP: 114/90 BP Location: [...] mellitus with other specified complication, unspecified whether skilled nursing insulin use (Multi) Managed by other providers [...] exam, discussion and plan. documented in this [facility] Work Phone: [phone] 420-872206-10-2024 Instructions* Patient Instructions* Cary Mcdonnell RN - [...] Fall Prevention Education Given documented in this [facility] Work Phone: 1(606) 897-943305-18-2024 Progress note Author Faraz Gilliam [facility] September 14, 2023 1:34pmNote Date/TimeMay 2023 1:26pmVictor [place] [id number] Cardiology Progress Note Signed Patient: Taye Gay MR#: [id number] : 1955 Acct:[id number] Age/Sex: 67 / F Adm Date: 4 Loc: Room: [address] [place] [address] Type: ADM IN Attending Dr: Elva Florian [...] signed by Faraz Gilliam MD> 09/14/23 1334 [facility] Work Phone: 1([phone] Progress note Author Elva Florian [facility] September 14, 2023 2:03amNote Date/TimeMay 2023 6:15pm[place] [address] Hospitalist Progress Note Signed Patient: Taye Gay MR#: [id number] : 1955 Acct:[id number] Age/Sex: 67 / F Adm Date: 4 Loc: Room: [address] [place] [address] Type: ADM IN Attending Dr: Elva Florian [...] Insuln.Pen SUBCUT 09/11/24 21:59 Not Given TID.WM.HS [facility] Protocol Insulin Glargine 20 units [...] 15 Mg Capsule PO 03/11/24 21:59 QHS [facility] A&P - Hospitalist Assessment/Plan (1) New onset atrial flutter: (2) Atrial flutter with rapid ventricular response: (3) Type 2 diabetes mellitus: (4) Hyperlipidemia: (5) Hypertension: Plan Documented By: Elva Florian MD 09/13/23 1809 Signed By: <Electronically signed by Elva Florian MD> 09/14/23 0203 [facility] Work Phone: [phone] Consult note Author Jonas Ch [facility] September 13, 2023 12:25pmNote Date/TimeMay 2023 12:26pm[place] [address] Cardiology Consult Note Signed Patient: Taye Gay MR#: [id number] : 1955 Acct:[id number] Age/Sex: 67 / F Adm Date: 4 Loc: Room: [address] [place] [address] Type: ADM INOo Attending Dr: Elva Florian MD Copies to: Sandra Keita, MD Jonas Martin MD~ Cardiology HPI History of Present [...] no additional complaints, except as documented [facility] Medical History History of esophageal [...] Confirmed 09/12/23] pen needle, diabetic [Sure-Fine Pen [place]] 06/12/23 [History Confirmed 09/12/23] nortriptyline 50 mg [...] x10E3/uL Lymph # (Auto) 2.0 (1.00-4.8) x10E3/uL [place] # (Auto) 0.6 (0.0-0.8) x10E3/uL Eos # [...] ml @ 999 mls/hr IV .Q1H1M ONE Rx#:[id number] Oral 50 / 50 Output: Urine 600 [...] signed by MD Jonas Ch> 09/13/23 1225 [facility] Work Phone: [phone] History and physical note Author Elva Florian [facility] September 13, 2023 2:09amNote Date/TimeMay 2023 7:53pm[place] [address] Hospitalist H&P Signed Patient: Taye Gay MR#: [id number] : 1955 Acct:[id number] Age/Sex: 67 / F Adm Date: 4 Loc: Room: [address] [place] [address] Type: ADM INOo Attending Dr: Elva Florian [...] Discussed with:?the medical team, the patient [facility] Medical History History of esophageal [...] Confirmed 09/12/23] pen needle, diabetic [Sure-Fine Pen [place]] 06/12/23 [History Confirmed 09/12/23] nortriptyline 50 mg [...] % (Auto) 20.2 % (.) 09/12/23 14:51 [place] % (Auto) 5.9 % (.) 09/12/23 14:51 Eos % (Auto) 1.7 % (.) 09/12/23 14:51 Baso % (Auto) 0.9 % (.) 09/12/23 14:51 Nucleat RBC Rel Count 0.2 /100 WBC (0-0.5) 09/12/23 14:51 Neut # (Auto) 7.0 x10E3/uL (1.8-7.7) 09/12/23 14:51 Lymph # (Auto) 2.0 x10E3/uL (1.00-4.8) 09/12/23 14:51 [place] # (Auto) 0.6 x10E3/uL (0.0-0.8) 09/12/23 14:51 [...] <Electronically signed by Elva Florian MD> 09/13/23208 [facility] Work Phone: [phone] 452-378602-12-2024 Evaluation note* Encounter Date Diagnosis Assessment Notes Treatment Notes Treatment Clinical Notes May, Type 2 diabetes mellitus with hy perglycemia (ICD-10 - E11.65) [facility] [facility] Other 01-23-2024 Evaluation note* Encounter Date Diagnosis Assessment Notes Treatment Notes Treatment Clinical Notes Apr, Primary insomnia (ICD-10 - F51.0 1) [facility] [facility] Other 12-11-2023 Evaluation note* Encounter Date Diagnosis Assessment Notes Treatment Notes Treatment Clinical Notes Mar, Type 2 diabetes mellitus with hy perglycemia (ICD-10 - E11.65) [facility] Other 11-06-2023 Evaluation note* Encounter Date Diagnosis [...] K21.9)Discussed can start famotidine PRN breakthrough GERD [facility] [facility] [employer] [facility] Other 10-02-2023 Evaluation note* Encounter Date Diagnosis Assessment Notes Treatment Notes Treatment Clinical Notes Jan, Primary insomnia (ICD-10 - F51.0 1) [facility] Other 09-11-2023 Evaluation note* Encounter Date Diagnosis Assessment Notes Treatment Notes Treatment Clinical Notes Dec, Type 2 diabetes mellitus with hy perglycemia (ICD-10 - E11.65) Managing type 2 diabetes material was published 1. Controlled, Type 2 diabetes with A1c 6.3% 2. Blood glucose levels improved. According to [employer] cgm download 12/25/2022- 01/07/2023: Avg glucose 156. [...] to make it easier material was published [facility] Other 09-06-2023 Evaluation note* Encounter Date Diagnosis Assessment Notes Treatment Notes Treatment Clinical Notes Dec, Esophageal stricture (ICD-10 - K 22.2) Dec,ysphagia (ICD-10 - R13.10)Patient has a narrow esophagus but is improving Patient is to continue omeprazole daily [facility] Other 09-01-2023 Evaluation note* Encounter Date Diagnosis Assessment Notes Treatment Notes Treatment Clinical Notes Dec, Primary insomnia (ICD-10 - F51.0 1) [employer] Other 08-22-2023 Evaluation note* Encounter Date Diagnosis Assessment Notes Treatment Notes Treatment Clinical Notes Nov, Primary insomnia (ICD-10 - F51.0 1) [employer] Other 08-02-2023 Evaluation note* Encounter Date Diagnosis [...] reviewed and amended by provider signed below. [facility] Other 07-11-2023 Evaluation note* Encounter Date Diagnosis Assessment Notes Treatment Notes Treatment Clinical Notes Oct, Primary insomnia (ICD-10 - F51.0 1) [employer] Other 06-01-2023 Evaluation note* Encounter Date Diagnosis Assessment Notes Treatment Notes Treatment Clinical Notes Sep, Type 2 diabetes mellitus with hy perglycemia (ICD-10 - E11.65) Managing type 2 diabetes material was published 1. Controlled, Type 2 diabetes with A1c 6.6% 2. Blood glucose levels improved. According to [employer] cgm download 09/13/2022- 09/26/2022: Avg glucose 151. [...] to make it easier material was published [employer] Other 05-15-2023 Evaluation note* Encounter Date Diagnosis Assessment Notes Treatment Notes Treatment Clinical Notes August, Primary hypertension (ICD-10 - I 10) August,Type 2 diabetes mellitus with hyperglycemia (ICD-10 - E11.65) [employer] Other 04-13-2023 Evaluation note* Encounter Date Diagnosis [...] F17.200)Due for LDCT for lung CA screening [employer] Other 04-10-2023 Evaluation note* Encounter Date Diagnosis Assessment Notes Treatment Notes Treatment Clinical Notes Jul, Primary insomnia (ICD-10 - F51.0 1) [employer] Other 03-08-2023 Evaluation note* Encounter Date Diagnosis Assessment Notes Treatment Notes Treatment Clinical Notes Jun, Primary insomnia (ICD-10 - F51.0 1) [employer] Other 02-21-2023 Evaluation note* Encounter Date Diagnosis Assessment Notes Treatment Notes Treatment Clinical Notes May, Type 2 diabetes mellitus with hy perglycemia (ICD-10 - E11.65) [employer] Other 02-20-2023 Evaluation note* Encounter Date Diagnosis Assessment Notes Treatment Notes Treatment Clinical Notes May, Type 2 diabetes mellitus with hy perglycemia (ICD-10 - E11.65) Managing type 2 diabetes material was published 1. Uncontrolled, Type 2 diabetes with A1c 7.1% 2. Blood glucose levels improved. According to [employer] cgm download 06/04/2022- 06/17/2022: Avg glucose 180. [...] - Z68.35)Setting weight-loss goals material was published [employer] Other 02-06-2023 Evaluation note* Encounter Date Diagnosis Assessment Notes Treatment Notes Treatment Clinical Notes May, Primary insomnia (ICD-10 - F51.0 1) [employer] Other 01-26-2023 Evaluation note* Encounter Date Diagnosis Assessment Notes Treatment Notes Treatment Clinical Notes Apr, Hyperlipidemia (ICD-10 - E78.5) [employer] Other 12-06-2022 Evaluation note* Encounter Date Diagnosis Assessment Notes Treatment Notes Treatment Clinical Notes Mar, Type 2 diabetes mellitus with hy perglycemia (ICD-10 - E11.65) [employer] Other 10-19-2022 Evaluation note* Encounter Date Diagnosis Assessment Notes Treatment Notes Treatment Clinical Notes Jan, Primary hypertension (ICD-10 - I 10) [employer] Other 09-13-2022 Evaluation note* Encounter Date Diagnosis Assessment Notes Treatment Notes Treatment Clinical Notes Dec, Type 2 diabetes mellitus with hy perglycemia (ICD-10 - E11.65) Managing type 2 diabetes material was published 1. Uncontrolled, Type 2 diabetes with A1c 7.7% 2. Blood glucose levels above target. According to [employer] cgm download 12/26/2021- 01/08/2022: Avg glucose 211. [...] x1 pen given. Sent order for ashley magui olivas aid. Dec,ietary counseling and surveillance (ICD-10 - Z71.3)Eat [...] last visit, continue with weight loss efforts [employer] Other 08-17-2022 Progress note Author Walter Montgomery [facility] December 13, 2021 8:52amNote Date/TimeAugust 2021 8:52am[place] [address] General Surgery Progress Note Signed Patient: Taye Gay MR#: [id number] : 1955 Acct:[id number] Age/Sex: 66 / F Adm Date: 2 Loc: Room: [address] [place] [address] Type: ADM INOo Attending Dr: Wilmer Vance [...] 12/09/21] insulin lispro 100 unit/mL subcutaneous pen ([facility] U-100 Insulin lispro) 1 sliding [...] 81 Mg Tablet.) 81 mg PO DAILY [facility] Stop: 12/10/22 08:59 Last Admin: 12/12/21 10:33 Dose: Not Given Atorvastatin Calcium (Atorvastatin 10 Mg Tablet) 10 mg PO DAILY [facility] Stop: 12/10/22 08:59 Last Admin: 12/12/21 10:33 Dose: Not Given Cyanocobalamin (Cyanocobalamin 1,000 Mcg Tablet) 1,000 mcg PO DAILY [facility] Stop: 12/13/22 08:59 Dextrose (Dextrose [...] 50 mls @ 100 mls/hr IV Q24H [facility] Last Admin: 12/12/21 11:57 Dose: 100 mls/hr Sodium Chloride (0.9% Sodium Chloride 1,000 Ml) 1,000 mls @ 100 mls/hr IV .[id number] Stop: 12/12/22 00:00 Last Infusion: 12/13/21 03:35 Dose: Infused Lactated Ringer's (Lactated Ringers) 1,000 mls @ 20 mls/hr IV .Q24H ONE Stop: 12/13/21 11:13 Last Infusion: 12/13/21 03:31 Dose: Infused Insulin Aspart (Insulin Aspart 300 Units/3 Ml Insuln.Pen) 0 units SUBCUT TID.WM.HS [facility]; Protocol Stop: 12/09/22 11:59 Last Admin: 12/13/21 08:07 Dose: 4 units Nortriptyline HCl (Nortriptyline 25 Mg Capsule) 50 mg PO BID [facility] Stop: 12/09/22 20:59 Last Admin: 12/12/21 22:27 Dose: 50 mg Omeprazole (Omeprazole 20 Mg Capsule.Dr) 20 mg PO DAILY [facility] Stop: 12/10/22 08:59 Last Admin: 12/12/21 10:33 Dose: Not Given Ondansetron HCl (Ondansetron 4 Mg/2 Ml Vial) 4 mg IV-PUSH Q6H PRN PRN Reason: Nausea And Vomiting Stop: 12/12/22 18:19 Pioglitazone HCl (Pioglitazone 15 Mg Tablet) 15 mg PO DAILY [facility] Stop: 12/10/22 08:59 Last Admin: [...] 15 Mg Capsule) 30 mg PO QHS [facility] Stop: 12/09/22 21:59 Last Admin: [...] Sodium 137, Potassium 4.4, Chloride 105, Carbon Ynojpln06.6, BUN 12, Creatinine 0.75, Est GFR ( Amer) > 60, Est GFR (Non-Af Amer) > 60, TotalBilirubin 0.7, Direct Bilirubin 0.2, Indirect Bilirubin 0.5 12/13/21 05:58: Corrected WBC 9.4, Uncorrected WBC Count 9.4, RBC 4.41, Hgb 14.2, Hct 41.9, MCV 95.1, MCH 32.2, MCHC 33.9, RDW 12.9, Plt Count 178, MPV 9.3,Neut % (Auto) 90.4, Lymph % (Auto) 7.7, [place] % (Auto) 1.8, Eos % (Auto) 0.0, Baso % (Auto) 0.1, Neut # (Auto) 8.5 H, Lymph # (Auto) 0.7 L, [place]# (Auto) 0.2, Eos # (Auto) 0.0, Baso # (Auto) 0.0, Nucleated RBC % (auto) 0.0 12/12/21 20:42: POC Glucose 214 12/12/21 18:25: POC Glucose 178 12/12/21 15:26: POC Glucose 133 12/12/21 11:48: POC Glucose 167 12/12/21 07:47: PHA Creatinine Clear 83.77, Sodium 136, Potassium 3.8, Chloride 103, Carbon Bryysqb58.5, BUN 5 L, Creatinine 0.76, Est GFR [...] % (Auto) 72.7, Lymph % (Auto) 16.1, [place] % (Auto) 8.8, Eos % (Auto) 2.1, Baso % (Auto) 0.3, Neut # (Auto) 5.3, Lymph # (Auto) 1.2, [place] # (Auto) 0.6, Eos# (Auto) 0.2, Baso [...] Neut % (Auto) 66.8, Lymph % (Auto) 21.0,[place] % (Auto) 9.2, Eos % (Auto) 2.6, Baso % (Auto) 0.4, Neut # (Auto) 4.1, Lymph # (Auto) 1.3, [place]# (Auto) 0.6, Eos # (Auto) 0.2, Baso [...] signed by DO Walter Montgomery> 12/13/21 0852 [facility] Work Phone: [phone] 470-171608-16-2022 Progress note Author Teresa Strong [facility] December 12, 2021 8:43pmNote Date/TimeAugust 2021 2:49pm[place] [address] Urology Progress Note Signed Patient: Taye Gay MR#: [id number] : 1955 Acct:[id number] Age/Sex: 66 / F Adm Date: 2 Loc: Room: [address] [place] [address] Type: ADM INOo Attending Dr: Arleen Stephen [...] Sodium 136, Potassium 3.8, Chloride 103, Carbon Orixuhp11.5, BUN 5 L, Creatinine 0.76, Est GFR [...] % (Auto) 72.7, Lymph % (Auto) 16.1, [place] % (Auto) 8.8, Eos % (Auto) 2.1, Baso % (Auto) 0.3, Neut # (Auto) 5.3, Lymph # (Auto) 1.2, [place] # (Auto) 0.6, Eos# (Auto) 0.2, Baso [...] Neut % (Auto) 66.8, Lymph % (Auto) 21.0,[place] % (Auto) 9.2, Eos % (Auto) 2.6, Baso % (Auto) 0.4, Neut # (Auto) 4.1, Lymph # (Auto) 1.3, [place]# (Auto) 0.6, Eos # (Auto) 0.2, Baso [...] <Electronically signed by Teresa Strong MD> 12/12/212042 [facility] Work Phone: [phone] 414-438008-16-2022 Progress note Author Arleen Stephen [facility] December 12, 2021 1:20pmNote Date/TimeAugust 2021 1:20pm[place] [address] Hospitalist Progress Note Signed Patient: Taye Gay MR#: [id number] : 1955 Acct:[id number] Age/Sex: 66 / F Adm Date: 2 Loc: Room: [address] [place] [address] Type: ADM INOo Attending Dr: Arleen Stephen [...] signed by Arleen Stephen MD> 12/12/21 1320 [facility] Work Phone: [phone] Progress note Author Walter [facility] December 12, 2021 8:07amNote Date/TimeAugust 2021 8:07[place] [address] General Surgery Progress Note Signed Patient: Taye Gay MR#: [id number] : 1955 Acct:[id number] Age/Sex: 66 / F Adm Date: 2 Loc: Room: [address] [place] [address] Type: ADM INOo Attending Dr: Arleen Stephen [...] 12/09/21] insulin lispro 100 unit/mL subcutaneous pen ([facility] U-100 Insulin lispro) 1 sliding [...] 81 Mg Tablet.) 81 mg PO DAILY [facility] Stop: 12/10/22 08:59 Last Admin: [...] Mg/0.4 Ml Syringe) 40 mg SUBCUT DAILY@10 [facility] Stop: 12/10/22 09:59 Last Admin: [...] 50 mls @ 100 mls/hr IV Q24H [facility] Last Infusion: 12/11/21 10:15 Dose: Infused Sodium Chloride (0.9% Sodium Chloride 1,000 Ml) 1,000 mls @ 100 mls/hr IV .[id number] Stop: 12/12/22 00:00 Last Admin: 12/12/21 00:10 Dose: 100 mls/hr Insulin Aspart (Insulin Aspart 300 Units/3 Ml Insuln.Pen) 0 units SUBCUT TID.[facility]; Protocol Stop: 12/09/22 11:59 Last Admin: 12/11/21 21:21 Dose: 3 units Nortriptyline HCl (Nortriptyline 25 Mg Capsule) 50 mg PO BID [facility] Stop: 12/09/22 20:59 Last Admin: 12/11/21 21:20 Dose: 50 mg Omeprazole (Omeprazole 20 Mg Capsule.Dr) 20 mg PO DAILY [facility] Stop: 12/10/22 08:59 Last Admin: [...] Neut % (Auto) 66.8, Lymph % (Auto) 21.0,[place] % (Auto) 9.2, Eos % (Auto) 2.6, Baso % (Auto) 0.4, Neut # (Auto) 4.1, Lymph # (Auto) 1.3, [place]# (Auto) 0.6, Eos # (Auto) 0.2, Baso # (Auto) 0.0, Nucleated RBC % (auto) 0.1 12/11/21 11:05: POC Glucose 195 12/11/21 06:58: POC Glucose 172 12/10/21 21:10: POC Glucose 249 12/10/21 16:18: POC Glucose 176 12/10/21 11:20: POC Glucose 268 12/10/21 06:50: PHA Creatinine Clear 75.03, Sodium 139, Potassium 4.0, Chloride 107, Carbon Lgymggc57.2, BUN 8 L, Creatinine 0.86, Est GFR [...] signed by DO Walter Montgomery> 12/12/21 0807 [facility] Work Phone: [phone] Consult note Author Teresa Strong [facility] December 11, 2021 9:25pmNote Date/TimeAugust 2021 8:10pm[place] [address] Urology Consult Note Signed Patient: Taye Gay MR#: [id number] : 1955 Acct:[id number] Age/Sex: 66 / F Adm Date: 2 Loc: Room: [address] [place] [address] Type: ADM INOo Attending Dr: Arleen Stephen [...] 12/09/21] insulin lispro 100 unit/mL subcutaneous pen ([facility] U-100 Insulin lispro) 1 sliding [...] Neut % (Auto) 66.8, Lymph % (Auto) 21.0,[place] % (Auto) 9.2, Eos % (Auto) 2.6, Baso % (Auto) 0.4, Neut # (Auto) 4.1, Lymph # (Auto) 1.3, [place]# (Auto) 0.6, Eos # (Auto) 0.2, Baso # (Auto) 0.0, Nucleated RBC % (auto) 0.1 12/11/21 11:05: POC Glucose 195 12/11/21 06:58: POC Glucose 172 12/10/21 21:10: POC Glucose 249 12/10/21 16:18: POC Glucose 176 12/10/21 11:20: POC Glucose 268 12/10/21 06:50: PHA Creatinine Clear 75.03, Sodium 139, Potassium 4.0, Chloride 107, Carbon Pewgckt47.2, BUN 8 L, Creatinine 0.86, Est GFR ( Amer) > 60,Est GFR (Non-Af Amer) > 60, Glucose 153 H, Calcium 8.8 12/10/21 06:50: Corrected WBC 7.4, Uncorrected WBC Count 7.4, RBC 4.38, Hgb 14.0, Hct 41.5, MCV 94.9, MCH 32.0, MCHC 33.7, RDW 13.1, Plt Count 141 L D, MPV 9.3, Neut % (Auto) 63.3, Lymph % (Auto) 24.1, [place] % (Auto) 10.5, Eos % (Auto) 1.8, Baso % (Auto) 0.3, Neut # (Auto) 4.7, Lymph # (Auto) 1.8, [place] # (Auto) 0.8, Eos # (Auto) 0.1, [...] <Electronically signed by Teresa Strong MD> 12/11/[address] [place] [address] Work Phone: [phone] Consult note Author Walter Montgomery [facility] December 11, 2021 3:18pmNote Date/TimeAugust 2021 3:18pm[place] [address] General Surgery Consult Note Signed Patient: Taye Gay MR#: [id number] : 1955 Acct:[id number] Age/Sex: 66 / F Adm Date: 2 Loc: Room: [address] [place] [address] Type: ADM INOo Attending Dr: Arleen Stephen [...] insulin lispro 100 unit/mL subcutaneous pen ([facility]100 Insulin lispro) 1 sliding [...] 81 Mg Tablet.) 81 mg PO DAILY [facility] Stop: 12/10/22 08:59 Last Admin: 12/11/21 08:00 Dose: 81 mg Atorvastatin Calcium (Atorvastatin 10 Mg Tablet) 10 mg PO DAILY [facility] Stop: 12/10/22 08:59 Last Admin: 12/11/21 08:00 Dose: 10 mg Dextrose (Dextrose 50% In Water 25 Gm/50 Ml Syringe) 0 gm IV-PUSH PRN PRN PRN Reason: Hypoglycemia Stop: 12/09/22 11:18 Enoxaparin Sodium (Enoxaparin 40 Mg/0.4 Ml Syringe) 40 mg SUBCUT DAILY@10 [facility] Stop: 12/10/22 09:59 Last Admin: [...] 50 mls @ 100 mls/hr IV Q24H [facility] Last Infusion: 12/11/21 10:15 Dose: Infused Insulin Aspart (Insulin Aspart 300 Units/3 Ml Insuln.Pen) 0 units SUBCUT TID.[facility]; Protocol Stop: 12/09/22 11:59 Last Admin: 12/11/21 11:33 Dose: 3 units Nortriptyline HCl (Nortriptyline 25 Mg Capsule) 50 mg PO BID [facility] Stop: 12/09/22 20:59 Last Admin: 12/11/21 08:00 Dose: 50 mg Omeprazole (Omeprazole 20 Mg Capsule.Dr) 20 mg PO DAILY [facility] Stop: 12/10/22 08:59 Last Admin: 12/11/21 08:00 Dose: 20 mg Ondansetron HCl (Ondansetron 4 Mg/2 Ml Vial) 4 mg IV-PUSH Q8H PRN PRN Reason: Nausea And Vomiting Stop: 12/09/22 11:18 Pioglitazone HCl (Pioglitazone 15 Mg Tablet) 15 mg PO DAILY [facility] Stop: 12/10/22 08:59 Last Admin: [...] 15 Mg Capsule) 30 mg PO QHS [facility] Stop: 12/09/22 21:59 Last Admin: [...] % (Auto) 66.8, Lymph % (Auto) 21.0, [place] % (Auto) 9.2, Eos % (Auto) 2.6, Baso % (Auto) 0.4, Neut # (Auto) 4.1, Lymph # (Auto) 1.3, [place] # (Auto) 0.6, Eos# (Auto) 0.2, Baso # (Auto) 0.0, Nucleated RBC % (auto) 0.1 12/11/21 11:05: POC Glucose 195 12/11/21 06:58: POC Glucose 172 12/10/21 21:10: POC Glucose 249 12/10/21 16:18: POC Glucose 176 12/10/21 11:20: POC Glucose 268 12/10/21 06:50: PHA Creatinine Clear 75.03, Sodium 139, Potassium 4.0, Chloride 107, Carbon Cwnrxbc02.2, BUN 8 L, Creatinine 0.86, Est GFR ( Amer) > 60,Est GFR (Non-Af Amer) > 60, Glucose 153 H, Calcium 8.8 12/10/21 06:50: Corrected WBC 7.4, Uncorrected WBC Count 7.4, RBC 4.38, Hgb 14.0, Hct 41.5, MCV 94.9, MCH 32.0, MCHC 33.7, RDW 13.1, Plt Count 141 L D, MPV 9.3, Neut % (Auto) 63.3, Lymph % (Auto) 24.1, [place] % (Auto) 10.5, Eos % (Auto) 1.8, Baso % (Auto) 0.3, Neut # (Auto) 4.7, Lymph # (Auto) 1.8, [place] # (Auto) 0.8, Eos # (Auto) 0.1, [...] Sodium 139, Potassium 3.9, Chloride 101, Carbon Eygexyx04.4, BUN 8 L, Creatinine 0.81, Est GFR [...] % (Auto) 79.8, Lymph % (Auto) 9.6, [place] % (Auto) 9.1, Eos % (Auto)1.1, Baso % (Auto) 0.4, Neut # (Auto) 10.3 H, Lymph # (Auto) 1.2, [place] # (Auto) 1.2 H, Eos # (Auto) 0.1, Baso # (Auto) 0.1, Nucleated RBC % (auto) 0.0 12/09/21 08:35: Urine Color Yellow, Urine Appearance Cloudy A, Urine pH 5.5, Ur Specific [place] 1.030, Urine Protein Negative, Urine Glucose (UA) [...] <Electronically signed by DO Walter Montgomery> 12/11/211517 [facility] Work Phone: 1(645) 294-190808-15-2022 Progress note Author Arleen Stephen [facility] December 11, 2021 1:33pmNote Date/TimeAugust 2021 1:30pm[place] [address] Hospitalist Progress Note Signed Patient: Taye Gay MR#: [id number] : 1955 Acct:[id number] Age/Sex: 66 / F Adm Date: 2 Loc: Room: [address] [place] [address] Type: ADM INOo Attending Dr: Arleen Stephen [...] signed by Arleen Stephen MD> 12/11/21 1333 [facility] Work Phone: 1([phone]) [phone] Progress note Author Arleen Stephen [facility] December 10, 2021 11:26amNote Date/TimeAugust 2021 11:26[place] [address] Hospitalist Progress Note Signed Patient: Taye Gay MR#: [id number] : 1955 Acct:[id number] Age/Sex: 66 / F Adm Date: 2 Loc: Room: [address] [place] [address] Type: ADM IN Attending Dr: Arleen Stephen [...] 1,000 Ml IV 12/09/22 11:29 75 mls/hr .[id number] PARMJIT Administration Ceftriaxone Sodium 1 gm in [...] <Electronically signed by Arleen Stephen MD> 12/10/216 [facility] Work Phone: 1(892) 582-564508-13-2022 History and physical note Author Arleen Stephen [facility] December 09, 2021 11:38amNote Date/TimeAugust 2021 11:38[place] [address] Hospitalist H&P Signed Patient: Taye Gay MR#: [id number] : 1955 Acct:[id number] Age/Sex: 66 / F Adm Date: 2 Loc: ER Room: Type: [facility] ER Attending Dr: Copies to: NON STAFF [...] % (Auto) 9.6 % (.) 12/09/21 08:50 [place] % (Auto) 9.1 % (.) 12/09/21 08:50 Eos % (Auto) 1.1 % (.) 12/09/21 08:50 Baso % (Auto) 0.4 % (.) 12/09/21 08:50 Neut # (Auto) 10.3 x10E3/uL (1.8-7.7) H 12/09/21 08:50 Lymph # (Auto) 1.2 x10E3/uL (1.00-4.8) 12/09/21 08:50 [place] # (Auto) 1.2 x10E3/uL (0.0-0.8) H 12/09/21 [...] pH 5.5 (5.0-9.0) 12/09/21 08:35 Ur Specific [place] 1.030 (1.001-1.030) 12/09/21 08:35 Urine Protein Negative [...] signed by Arleen Stephen MD> 12/09/21 1138 [facility] Work Phone: 1([phone] 713-561706-16-2022 Evaluation note* Encounter Date Diagnosis Assessment Notes [...] tolerance overall. [facility] however [...] to get her started back on this. [employer] Other 03-14-2022 Evaluation note* Encounter Date Diagnosis Assessment Notes Treatment Notes Treatment Clinical Notes Jun, Type 2 diabetes mellitus with hy perglycemia (ICD-10 - E11.65) Managing type 2 diabetes material was published 1. Controlled, Type 2 diabetes with A1c 6% 2. Blood glucose levels improved. According to [employer] cgm download 06/26/2021- 07/09/2021: Avg glucose 132. [...] (ICD-10 - L84) f/u with Dr. Limon [employer] Other 03-07-2022 Evaluation note* Encounter Date Diagnosis [...] apnea would also be evaluated if needed [employer] Other 01-10-2022 Evaluation note* Encounter Date Diagnosis [...] not at all interested in any vaccines. [employer] Other 12-14-2021 Evaluation note* Encounter Date Diagnosis Assessment Notes Treatment Notes Treatment Clinical Notes Mar, Type 2 diabetes mellitus with hy perglycemia (ICD-10 - E11.65) [employer] Other 12-06-2021 Evaluation note* Encounter Date Diagnosis [...] Mar,ain in left leg (ICD-10 - M79.605) [employer] Other 11-29-2021 Evaluation note* Encounter Date Diagnosis Assessment Notes Treatment Notes Treatment Clinical Notes Feb, Type 2 diabetes mellitus with hy perglycemia (ICD-10 - E11.65) Managing type 2 diabetes material was published 1. Controlled, Type 2 diabetes with A1c 6.9% 2. Blood glucose levels according to [employer] cgm download 03/14/2021-03/27/2021: Avg glucose 167. >250-5%, [...] eating on a budget material was published [employer] Other 11-01-2021 Evaluation note* Encounter Date Diagnosis [...] in her feet sounds neurologic in origin. [employer] Other Chief complaint+Reason for visit Narrative* Reason for Visit [id number] Dietary counseling and surveillance Hyperlipidemia Hypertension Insulin long-term use Peripheral neuropathy Type 2 diabetes mellitus Vitamin B 12 deficiency [facility] Work Phone: Consult note Author Walter Montgomery [facility] December 11, 2021 3:18pmNote Date/TimeAugust 2021 3:18pmVictor [place] [id number] General Surgery Consult Note Signed Patient: Taye Gay MR#: [id number] : 1955 Acct:[id number] Age/Sex: 66 / F Adm Date: 2 Loc: Room: [address] [place] [address] Type: ADM INOo Attending Dr: Arleen Stephen [...] insulin lispro 100 unit/mL subcutaneous pen ([facility] SoloStar U-100 Insulin lispro) 1 sliding scaledose [...] 81 Mg Tablet.) 81 mg PO DAILY [facility] Stop: 12/10/22 08:59 Last Admin: 12/11/21 08:00 Dose: 81 mg Atorvastatin Calcium (Atorvastatin 10 Mg Tablet) 10 mg PO DAILY [facility] Stop: 12/10/22 08:59 Last Admin: [...] 50 mls @ 100 mls/hr IV Q24H [facility] Last Infusion: 12/11/21 10:15 Dose: Infused Insulin Aspart (Insulin Aspart 300 Units/3 Ml Insuln.Pen) 0 units SUBCUT TID.[facility]; Protocol Stop: 12/09/22 11:59 Last Admin: 12/11/21 11:33 Dose: 3 units Nortriptyline HCl (Nortriptyline 25 Mg Capsule) 50 mg PO BID [facility] Stop: 12/09/22 20:59 Last Admin: 12/11/21 08:00 Dose: 50 mg Omeprazole (Omeprazole 20 Mg Capsule.Dr) 20 mg PO DAILY [facility] Stop: 12/10/22 08:59 Last Admin: 12/11/21 08:00 Dose: 20 mg Ondansetron HCl (Ondansetron 4 Mg/2 Ml Vial) 4 mg IV-PUSH Q8H PRN PRN Reason: Nausea And Vomiting Stop: 12/09/22 11:18 Pioglitazone HCl (Pioglitazone 15 Mg Tablet) 15 mg PO DAILY [facility] Stop: 12/10/22 08:59 Last Admin: [...] 15 Mg Capsule) 30 mg PO QHS [facility] Stop: 12/09/22 21:59 Last Admin: [...] % (Auto) 66.8, Lymph % (Auto) 21.0, [place] % (Auto) 9.2, Eos % (Auto) 2.6, Baso % (Auto) 0.4, Neut # (Auto) 4.1, Lymph # (Auto) 1.3, [place] # (Auto) 0.6, Eos# (Auto) 0.2, Baso # (Auto) 0.0, Nucleated RBC % (auto) 0.1 12/11/21 11:05: POC Glucose 195 12/11/21 06:58: POC Glucose 172 12/10/21 21:10: POC Glucose 249 12/10/21 16:18: POC Glucose 176 12/10/21 11:20: POC Glucose 268 12/10/21 06:50: PHA Creatinine Clear 75.03, Sodium 139, Potassium 4.0, Chloride 107, Carbon Mpjirmf69.2, BUN 8 L, Creatinine 0.86, Est GFR ( Amer) > 60,Est GFR (Non-Af Amer) > 60, Glucose 153 H, Calcium 8.8 12/10/21 06:50: Corrected WBC 7.4, Uncorrected WBC Count 7.4, RBC 4.38, Hgb 14.0, Hct 41.5, MCV 94.9, MCH 32.0, MCHC 33.7, RDW 13.1, Plt Count 141 L D, MPV 9.3, Neut % (Auto) 63.3, Lymph % (Auto) 24.1, [place] % (Auto) 10.5, Eos % (Auto) 1.8, Baso % (Auto) 0.3, Neut # (Auto) 4.7, Lymph # (Auto) 1.8, [place] # (Auto) 0.8, Eos # (Auto) 0.1, [...] Sodium 139, Potassium 3.9, Chloride 101, Carbon Misgrsq66.4, BUN 8 L, Creatinine 0.81, Est GFR [...] % (Auto) 79.8, Lymph % (Auto) 9.6, [place] % (Auto) 9.1, Eos % (Auto)1.1, Baso % (Auto) 0.4, Neut # (Auto) 10.3 H, Lymph # (Auto) 1.2, [place] # (Auto) 1.2 H, Eos # (Auto) 0.1, Baso # (Auto) 0.1, Nucleated RBC % (auto) 0.0 12/09/21 08:35: Urine Color Yellow, Urine Appearance Cloudy A, Urine pH 5.5, Ur Specific [place] 1.030, Urine Protein Negative, Urine Glucose (UA) [...] <Electronically signed by DO Walter Montgomery> 12/11/[address] [place] [address] Work Phone: Consult note Author Teresa Strong [facility] December 11, 2021 9:25pmNote Date/TimeAugust 2021 8:10pm[place] [address] Urology Consult Note Signed Patient: Taye Gay MR#: [id number] : 1955 Acct:[id number] Age/Sex: 66 / F Adm Date: 2 Loc: Room: [address] [place] [address] Type: ADM INOo Attending Dr: Arleen Stephen [...] 12/09/21] insulin lispro 100 unit/mL subcutaneous pen ([facility] SoloStar U-100 Insulin lispro) 1 sliding [...] Neut % (Auto) 66.8, Lymph % (Auto) 21.0,[place] % (Auto) 9.2, Eos % (Auto) 2.6, Baso % (Auto) 0.4, Neut # (Auto) 4.1, Lymph # (Auto) 1.3, [place]# (Auto) 0.6, Eos # (Auto) 0.2, Baso # (Auto) 0.0, Nucleated RBC % (auto) 0.1 12/11/21 11:05: POC Glucose 195 12/11/21 06:58: POC Glucose 172 12/10/21 21:10: POC Glucose 249 12/10/21 16:18: POC Glucose 176 12/10/21 11:20: POC Glucose 268 12/10/21 06:50: PHA Creatinine Clear 75.03, Sodium 139, Potassium 4.0, Chloride 107, Carbon Feguqpu85.2, BUN 8 L, Creatinine 0.86, Est GFR ( Amer) > 60,Est GFR (Non-Af Amer) > 60, Glucose 153 H, Calcium 8.8 12/10/21 06:50: Corrected WBC 7.4, Uncorrected WBC Count 7.4, RBC 4.38, Hgb 14.0, Hct 41.5, MCV 94.9, MCH 32.0, MCHC 33.7, RDW 13.1, Plt Count 141 L D, MPV 9.3, Neut % (Auto) 63.3, Lymph % (Auto) 24.1, [place] % (Auto) 10.5, Eos % (Auto) 1.8, Baso % (Auto) 0.3, Neut # (Auto) 4.7, Lymph # (Auto) 1.8, [place] # (Auto) 0.8, Eos # (Auto) 0.1, [...] <Electronically signed by Teresa Strong MD> 12/11/212124 [facility] Work Phone: Consult note Author Lit Clark [facility] CenterNote Date/TimeJanuary 2024 11:07am [place] [address] Neurology Consult Note Signed Patient: Taye Gay MR#: [id number] : 1955 Acct:[id number] Age/Sex: 68 / F Adm Date: 4 Loc: Room: [address] [place] [address] Type: ADM IN Attending Dr: Priscilla Lang MD Copies to: DO Sandra Garrido DO Rafik Massouh, MD~ HPI Consult Date: 04/29/24 Dog Breeder: Lit Clark DO Reason for consult: Slurred [...] unless noted below or in HPI [facility] Medical History BMI 32.0-32.9,adult Abnormal [...] History Father Heart disease History of stroke [facility] Problem: Diagnosed with Stroke Cancer throat heart [...] (Stool Softener) 100 mg PO DAILY PRN ndcoiytzyamv26/14/24 [History Confirmed 04/28/24] multivitamin 1 tab PO DAILY 06/12/23 [History Confirmed 04/28/24] pen needle, diabetic [Sure-Fine Pen [place]] 06/12/23 [History Confirmed 04/28/24] metformin 500 mg [...] Oz Bowling M.D.04/28/2024 9:46 PM Dictation Location: [facility]-[address] 04/28/24 19:44 IMPRESSION: No acute intracranial pathology. No evidence of focal stenosis, aneurysmal dilatation, dissection or occlusion. Impression dictated by: Oz Bowling M.D.04/28/2024 9:44 PM Dictation Location: [facility]--17 Assessment/Plan (1) Atrial fibrillation: Qualifiers: Atrial [...] may be metabolic in nature and not parts counter representative necessarily of transient ischemia or of [...] <Electronically signed by Lit Clark DO> 04/29/24 7637 [facility] Work Phone: Discharge summary Author Wilmer Vance [facility] December 13, 2021 1:58pmNote Date/TimeAugust 2021 1:58pm[place] [address] Discharge Summary Signed Patient: Taye Gay MR#: [id number] : 1955 Acct:[id number] Age/Sex: 66 / F Adm Date: 2 Loc: Room: [address] [place] [address]: Wilmer Vance MD Copies to: [...] Sodium 137, Potassium 4.4, Chloride 105, Carbon Gotvyjz67.6, BUN 12, Creatinine 0.75, Est GFR ( Amer) > 60, Est GFR (Non-Af Amer) > 60, TotalBilirubin 0.7, Direct Bilirubin 0.2, Indirect Bilirubin 0.5 12/13/21 05:58: Corrected WBC 9.4, Uncorrected WBC Count 9.4, RBC 4.41, Hgb 14.2, Hct 41.9, MCV 95.1, MCH 32.2, MCHC 33.9, RDW 12.9, Plt Count 178, MPV 9.3,Neut % (Auto) 90.4, Lymph % (Auto) 7.7, [place] % (Auto) 1.8, Eos % (Auto) 0.0, Baso % (Auto) 0.1, Neut # (Auto) 8.5 H, Lymph # (Auto) 0.7 L, [place]# (Auto) 0.2,Eos # (Auto) 0.0, Baso # [...] scheduled appointment Instructions: Cholecystectomy, Laparoscopic Surgery, Acetaminophen, Cefuroxime,[facility] De [place] [...] <Electronically signed by Wilmer Vance MD> 12/13/21 [facility]8 [facility] Work Phone: Discharge summary Author Elva Florian [facility] September 15, 2023 1:17amNote Date/TimeMay 2023 2:20pm[place] [address] Discharge Summary Signed Patient: Taye Gay MR#: [id number] : 1955 Acct:[id number] Age/Sex: 67 / F Adm Date: 4 Loc: Room: [address] [place] [address]: Elva Florian MD Copies to: [...] .Route (DME) pen needle, diabetic [Sure-Fine Pen [place]] .Route (DME) FreeStyle Brent 14 Day Sensor [...] signed by Elva Florian MD> 09/15/23 0117 [facility] Work Phone: Discharge summary Author Priscilla Lang [facility] CenterNote Date/TimeJanuary 2024 10:28am [place] [address] Discharge Summary Signed Patient: Taye Gay MR#: [id number] : 1955 Acct:[id number] Age/Sex: 68 / F Adm Date: 4 Loc: 3T Room: [address] [place] [address]: Priscilla Lang MD Copies to: [...] taking multiple medications that could potentially cause EFFICIENCY MINER side effect and toxic encephalopathy. Diagnosis is [...] polypharmacy regimen to reduce her risk of EFFICIENCY MINER side effects or drug?drug interaction.At this time, [...] ask her primary care doctor to obtain [facility] record entirely to address abnormalities seen [...] primary care provider to obtain [facility] records entirely to follow up on all [...] drug?drug interaction. Discharging you from [facility] does not mean that your medical care [...] constipation) (DME) pen needle, diabetic [Sure-Fine Pen [place]] .Route lidocaine 5 % ointment 1 applic [...] % (Auto) 63.5, Lymph % (Auto) 24.9, [place] % (Auto) 8.3, Eos % (Auto) 2.9, Baso % (Auto) 0.4, Nucleat RBC Rel Count 0.0, Neut # (Auto) 4.6, Lymph # (Auto) 1.8, [place] # (Auto) 0.6, Eos # (Auto) 0.2, [...] signed by Priscilla Lang MD> 04/30/24 1028 [facility] Work Phone: Evaluation noteNo InformationSouth Range GettingHired Other Evaluation note* Diagnosis Onset Date Resolution Status Cholelithiasis acuteEmphysematous cystitisacutePyelonephritisacuteRight lateral abdominal pain acute [facility] Work Phone: evaluation noteNo assessment information available [facility] Work Phone: evaluation note* Diagnosis Onset Date Resolution Status [id number] acuteDietary counseling and surveillanceacuteHyperlipidemiaacuteHypertension acuteInsulin long-term useacutePeripheral neuropathyacuteType 2 diabetes mellitusacuteVitamin B 12 deficiencyacute [facility] Work Phone: Evaluation note* Diagnosis Onset Date Resolution Status BMI 28.0-28.9,adult [id number] counseling and surveillanceacute HyperlipidemiaacuteHypertensionacuteInsulin long-term useacutePeripheral neuropathyacuteType 2 diabetes mellitusacuteVitamin B 12 deficiencyThe [facility] Work Phone: evaluation note* Diagnosis Onset Date Resolution Status BMI 28.0-28.9,adult ucpbnWYM-[id number] counseling and surveillanceacute HyperlipidemiaacuteHypertensionacuteInsulin long-term useacutePeripheral neuropathyacuteType 2 diabetes mellitusacuteVitamin B 12 deficiencyacute DizzinessacuteHypertensionacutePrimary insomniaacuteType 2 diabetes mellitus acute [facility] Work Phone: evaluation note* Diagnosis Onset Date Resolution Status BMI 28.0-28.9,adult [id number]-[id number]-[id number] counseling and surveillanceacute HyperlipidemiaacuteHypertensionacuteInsulin long-term useacutePeripheral neuropathyacuteType 2 diabetes mellitusacuteVitamin B 12 deficiencyacute DizzinessacuteHypertensionacutePrimary insomniaacuteType 2 diabetes mellitus acutePAD (peripheral artery disease)acute [facility] Work Phone: Evaluation note* Diagnosis Onset Date Resolution Status PAD (peripheral artery disease) acuteBMI 28.0-28.9,imzqtnxvrjBYY-VESA-[id number] counseling and surveillanceacuteHyperlipidemiaacuteHypertensionacutePeripheral neuropathyacute TachycardiaacuteType 2 diabetes mellitusacuteVitamin B 12 deficiencyacuteAtrial flutter with rapid ventricular responseacuteChest painacuteHyperlipidemiaacute HypertensionacuteNew onset atrial flutteracuteType 2 diabetes mellitusacute [facility] Work Phone: Evaluation note* Diagnosis Onset Date Resolution Status PAD (peripheral artery disease) acuteBMI 28.0-28.9,dpqnjvvbktKZB-BPMD-[id number] counseling and surveillanceacuteHyperlipidemiaacuteHypertensionacutePeripheral neuropathyacute TachycardiaacuteType 2 diabetes mellitusacuteVitamin B 12 deficiencyacuteAtrial flutter with rapid ventricular responseacuteChest painacuteHyperlipidemiaacute HypertensionacuteNew onset atrial flutteracuteType 2 diabetes mellitusacuteNew onset atrial flutteracuteMobility impairedPremier Health [facility] Work Phone: Evaluation note* Diagnosis Typical atrial flutter (Multi) Nonischemic cardiomyopathy (Multi) Other primary cardiomyopathies Hypertension, unspecified type Hypercholesteremia Pure hypercholesterolemia Smoker Tobacco use disorder Type 2 diabetes mellitus with other specified complication, unspecified whether terminal operations manager insulin use (Multi) BMI 28.0-28.9,adult documented in this encounter [facility] Work Phone: Evaluation note* Diagnosis Onset Date Resolution Status BMI 28.0-28.9,adult [id number] counseling and surveillanceacute HyperlipidemiaacuteHypertensionacutePeripheral neuropathyacuteTachycardiaacute Type 2 diabetes mellitusacuteVitamin B 12 deficiencyacuteHyperlipidemiaacute HypertensionacuteNew onset atrial flutteracuteType 2 diabetes mellitusacute Atrial flutter with rapid ventricular responseresolvedChest painresolvedHospital discharge follow-upacuteNew onset atrial flutteracutePrimary insomniaacuteType 2 diabetes mellitusacuteMobility impairednonWilson [facility] Work Phone: Evaluation note* Diagnosis Onset Date Resolution Status BMI 28.0-28.9,adult kqquhFQR-[id number] counseling and surveillanceacute HyperlipidemiaacuteHypertensionacutePeripheral neuropathyacuteTachycardiaacute Type 2 diabetes mellitusacuteVitamin B 12 deficiencyacuteHyperlipidemiaacute HypertensionacuteNew onset atrial flutteracuteType 2 diabetes mellitusacute Atrial flutter with rapid ventricular responseresolvedChest painresolvedHospital discharge follow-upacuteNew onset atrial flutteracutePrimary insomniaacuteType 2 diabetes mellitusacuteMobility impairednoneactiveAmbulatory dysfunctionacute HypomagnesemiaacuteHypothyroidacuteType 2 diabetes mellitus with hyperglycemia acuteWeCos[facility] Work Phone: Evaluation note* Diagnosis Onset Date Resolution Status BMI 28.0-28.9,adult wsnmfQBW-[id number] counseling and surveillanceacute HyperlipidemiaacuteHypertensionacutePeripheral neuropathyacuteTachycardiaacute Type 2 diabetes mellitusacuteVitamin B 12 deficiencyacuteHyperlipidemiaacute HypertensionacuteNew onset atrial flutteracuteType 2 diabetes mellitusacute Atrial flutter with rapid ventricular responseresolvedChest painresolvedHospital discharge follow-upacuteNew onset atrial flutteracutePrimary insomniaacuteType 2 diabetes mellitusacuteMobility impairednoneactiveAmbulatory dysfunctionacute HypomagnesemiaacuteHypothyroidacuteType 2 diabetes mellitus with hyperglycemia acuteVitamin B 12 deficiencyacuteW[facility] Work Phone: Evaluation note* Diagnosis Onset Date Resolution Status BMI 28.0-28.9,adult oxnbtTPI-SCYB-[id number] counseling and surveillanceacute HyperlipidemiaacuteHypertensionacutePeripheral neuropathyacuteTachycardiaacute Type 2 diabetes mellitusacuteVitamin B 12 deficiencyacuteHyperlipidemiaacute HypertensionacuteNew onset atrial flutteracuteType 2 diabetes mellitusacute Atrial flutter with rapid ventricular responseresolvedChest painresolvedHospital discharge follow-upacuteNew onset atrial flutteracutePrimary insomniaacuteType 2 diabetes mellitusacuteMobility impairednoneactiveAmbulatory dysfunctionacute HypomagnesemiaacuteHypothyroidacuteType 2 diabetes mellitus with hyperglycemia acuteVitamin B 12 deficiencyacuteWecopper springs hospitalacuteBMI 28.0-28.9,adultacute PMX-ORHU-[id number] counseling and surveillanceacuteHyperlipidemia acuteHypertensionacutePeripheral neuropathyacuteType 2 diabetes mellitusacute Vitamin B 12 deficiencyacute [facility] Work Phone: Evaluation note* Diagnosis Onset Date Resolution Status BMI 28.0-28.9,adult bhduxJHL-[id number] counseling and surveillanceacute HyperlipidemiaacuteHypertensionacutePeripheral neuropathyacuteTachycardiaacute Type 2 diabetes mellitusacuteVitamin B 12 deficiencyacuteHyperlipidemiaacute HypertensionacuteNew onset atrial flutteracuteType 2 diabetes mellitusacute Atrial flutter with rapid ventricular responseresolvedChest painresolvedHospital discharge follow-upacuteNew onset atrial flutteracutePrimary insomniaacuteType 2 diabetes mellitusacuteMobility impairednoneactiveAmbulatory dysfunctionacute HypomagnesemiaacuteHypothyroidacuteType 2 diabetes mellitus with hyperglycemia acuteVitamin B 12 deficiencyacuteWeaknessacuteAbnormal thyroid blood testacute BMI 28.0-28.9,pskdgiiqzjGVE-NVPI-[id number] counseling and surveillanceacuteHyperlipidemiaacuteHypertensionacutePeripheral neuropathyacute Type 2 diabetes mellitusacuteVitamin B 12 deficiencyacute [facility] Work Phone: Evaluation note* Diagnosis Onset Date Resolution Status BMI 28.0-28.9,adult lyyrpCVG-SZRA-[id number] counseling and surveillanceacute HyperlipidemiaacuteHypertensionacutePeripheral neuropathyacuteTachycardiaacute Type 2 diabetes mellitusacuteVitamin B 12 deficiencyacuteHyperlipidemiaacute HypertensionacuteNew onset atrial flutteracuteType 2 diabetes mellitusacute Atrial flutter with rapid ventricular responseresolvedChest painresolvedHospital discharge follow-upacuteNew onset atrial flutteracutePrimary insomniaacuteType 2 diabetes mellitusacuteMobility impairednoneactiveAmbulatory dysfunctionacute HypomagnesemiaacuteHypothyroidacuteType 2 diabetes mellitus with hyperglycemia acuteVitamin B 12 deficiencyacuteWeaknessacuteAbnormal thyroid blood testacute BMI 28.0-28.9,eqvlyeovqyUKJ-VIYN-[id number] counseling and surveillanceacuteHyperlipidemiaacuteHypertensionacutePeripheral neuropathyacute Type 2 diabetes mellitusacuteVitamin B 12 deficiencyacuteHospital discharge follow-upacuteHypomagnesemiaacute [facility] Work Phone: Evaluation note* Diagnosis Onset Date Resolution Status Ambulatory dysfunction acuteHypomagnesemiaacuteHypothyroidacuteType 2 diabetes mellitus with hyperglycemiaacuteVitamin B 12 deficiencyacuteWeaknessacuteAbnormal thyroid blood testacuteBMI 28.0-28.9,ikfhfipnxkNNN-FWRM-[id number] counseling and surveillanceacuteHyperlipidemiaacuteHypertensionacutePeripheral neuropathy acuteType 2 diabetes mellitusacuteVitamin B 12 deficiencyacuteHospital discharge follow-[facility] Work Phone: Evaluation note* Diagnosis Ulcer of right foot, limited to breakdown of skin (CMS/HCC)- Primary Blister of right foot, subsequent encounter 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) documented in this encounter [facility] HealthcareEvaluation note* Diagnosis Onset Date Resolution Status Ambulatory dysfunction acuteHypomagnesemiaacuteHypothyroidacuteType 2 diabetes mellitus with hyperglycemiaacuteVitamin B 12 deficiencyacuteWeaknessacuteAbnormal thyroid blood testacuteBMI 28.0-28.9,qrabymlqcoUYC-UFVD-[id number] counseling and surveillanceacuteHyperlipidemiaacuteHypertensionacutePeripheral neuropathy acuteType 2 diabetes mellitusacuteVitamin B 12 deficiencyacuteHospital discharge follow-[facility] Work Phone: Evaluation note* Diagnosis Leg [...] atrial flutter (Multi) documented in this encounter [facility] Work Phone: Evaluation note* Diagnosis Lumbosacral radiculopathy at S1- Primary Neurogenic pain Cervical paraspinal muscle spasm Spasm of muscle Lumbar paraspinal muscle spasm Other symptoms referable to back Carpal tunnel syndrome, bilateral Carpal tunnel syndrome B12 deficiency documented in this encounter [facility] HealthcareEvaluation note* Diagnosis Nonischemic cardiomyopathy (Multi)- Primary Other primary cardiomyopathies Typical atrial flutter (Multi) Hypercholesteremia Pure hypercholesterolemia Primary hypertension Unspecified essential hypertension Current smoker BMI 28.0-28.9,adult High risk medication use documented in this encounter [facility] Work Phone: Evaluation note* Diagnosis [...] 30.0-30.9,adult Current smoker documented in this encounter [facility] Work Phone: Evaluation note* Diagnosis [...] 32.0-32.9,adult Current smoker documented in this encounter [facility] Work Phone: Evaluation note* Diagnosis [...] 30-39.9) Current smoker documented [facility] encounter [facility] Work Phone: Evaluation note* Diagnosis [...] screening by mammogram documented in this encounter [facility] HealthcareEvaluation note* Diagnosis Leg pain, bilateral- Primary [...] disorder of vagina documented in this encounter [facility] HealthcareEvaluation note* Diagnosis Leg pain, bilateral- Primary [...] muscle B12 deficiency Guyon syndrome, unspecified laterality Neurogenic pain documented in this encounter [facility] HealthcareHistory and physical note Author Arleen Stephen [facility] December 09, 2021 11:38amNote Date/TimeAugust 2021 11:38[place] [address] Hospitalist H&P Signed Patient: Taye Gay MR#: [id number] : 1955 Acct:[id number] Age/Sex: 66 / F Adm Date: 2 Loc: ER Room: Type: [facility] ER Attending Dr: Copies to: NON STAFF [...] 02/09/21] insulin lispro 100 unit/mL subcutaneous pen ([facility] U-100 Insulin lispro) 1 sliding [...] % (Auto) 9.6 % (.) 12/09/21 08:50 [place] % (Auto) 9.1 % (.) 12/09/21 08:50 Eos % (Auto) 1.1 % (.) 12/09/21 08:50 Baso % (Auto) 0.4 % (.) 12/09/21 08:50 Neut # (Auto) 10.3 x10E3/uL (1.8-7.7) H 12/09/21 08:50 Lymph # (Auto) 1.2 x10E3/uL (1.00-4.8) 12/09/21 08:50 [place] # (Auto) 1.2 x10E3/uL (0.0-0.8) H 12/09/21 [...] pH 5.5 (5.0-9.0) 12/09/21 08:35 Ur Specific [place] 1.030 (1.001-1.030) 12/09/21 08:35 Urine Protein Negative [...] signed by Arleen Stephen MD> 12/09/21 1138 [facility] Work Phone: History and physical note Author Jluis Campos [facility] November 10, 2023 6:20amNote Date/TimeJuly 2023 6:11am[place] [address] Hospitalist H&P Signed Patient: Taye Gay MR#: [id number] : 1955 Acct:[id number] Age/Sex: 67 / F Adm Date: 4 Loc: 4N Room: [address] [place] [address] Type: ADM IN Attending Dr: Jluis Campos [...] daughter, states that starting Saturday the patient beganexperiencing sudden onset weakness while [...] unless noted below or in HPI [facility] Medical History History of esophageal [...] History Father [facility] disease [facility]: Diagnosed with Stroke Cancer throat [...] Confirmed 11/09/23] pen needle, diabetic [Sure-Fine Pen [place]] 06/12/23 [History Confirmed 11/09/23] omeprazole 20 mg [...] weaknesses were noted, patient unable to ambulate. Evyf-vh-gccg test was normal. No tremors or ataxia with usrsqj-te-taob movements. Neuro: AOx3, CN II-VII intact. Moves [...] % (Auto) 26.0 % (.) 11/10/23 03:41 [place] % (Auto) 8.2 % (.) 11/10/23 03:41 Eos % (Auto) 3.7 % (.) 11/10/23 03:41 Baso % (Auto) 0.9 % (.) 11/10/23 03:41 Nucleat RBC Rel Count 0.1 /100 WBC (0-0.5) 11/10/23 03:41 Neut # (Auto) 5.2 x10E3/uL (1.8-7.7) 11/10/23 03:41 Lymph # (Auto) 2.2 x10E3/uL (1.00-4.8) 11/10/23 03:41 [place] # (Auto) 0.7 x10E3/uL (0.0-0.8) 11/10/23 03:41 [...] pH 6.0 (5.0-9.0) 11/10/23 05:02 Ur Specific [place] 1.007 (1.001-1.030) 11/10/23 05:02 Urine Protein Negative [...] signed by Jluis Campos DO> 11/10/23 0620 [facility] Work Phone: History and physical note Author Jori Hearn [facility] CenterNote Date/TimeJanuary 2024 6:39[place] [address] Hospitalist H&P Signed Patient: Taye Gay MR#: [id number] : 1955 Acct:[id number] Age/Sex: 68 / F Adm Date: 4 Loc: 3T Room: [address] [place] [address] Type: ADM IN Attending Dr: Jori Hearn DO Copies to: Sandra Keita, DO Jori Hearn, DO~ HPI DATE OF [...] presence of WBCs, RBCs and rare yeast. [facility] provided 3 to24 mg of aspirin x [...] of dementia, possible Alzheimer's dementia -continue home usjuxemqs79 mg twice daily and donepezil 20 mg daily 12. Atrial fibrillation - continue Eliquis 5 mg twice daily for anticoagulationand carvedilol 12.5 mg twice daily. EKG in ER shows NSR 13. Hypoxia - no respiratory distress or cardiopulmonary complaints to accompany this. Will monitortelemetry and address as needed [facility] Medical History BMI 32.0-32.9,adult Abnormal [...] History Father Heart disease History of stroke [facility] Problem: Diagnosed with Stroke Cancer throat heart [...] (Stool Softener) 100 mg PO DAILY PRN ryolstgyqzkr57/14/24 [History Confirmed 04/28/24] multivitamin 1 tab PO DAILY 06/12/23 [History Confirmed 04/28/24] pen needle, diabetic [Sure-Fine Pen [place]] 06/12/23 [History Confirmed 04/28/24] metformin 500 mg [...] % (Auto) 24.6 % (.) 04/28/24 19:54 [place] % (Auto) 7.6 % (.) 04/28/24 19:54 Eos % (Auto) 2.7 % (.) 04/28/24 19:54 Baso % (Auto) 1.1 % (.) 04/28/24 19:54 Nucleat RBC Rel Count 0.2 /100 WBC (0-0.5) 04/28/24 19:54 Neut # (Auto) 6.5 x10E3/uL (1.8-7.7) 04/28/24 19:54 Lymph # (Auto) 2.5 x10E3/uL (1.00-4.8) 04/28/24 19:54 [place] # (Auto) 0.8 x10E3/uL (0.0-0.8) 04/28/24 19:54 [...] pH 5.5 (5.0-9.0) 04/28/24 22:02 Ur Specific [place] 1.038 (1.001-1.030) H 04/28/24 22:02 Urine Protein [...] signed by Jori Hearn DO> 04/29/24 0639 [facility] Work Phone: History and physical note Author Manjit Gleason [facility] CenterNote Date/TimeMay 2024 12:[address] [place] [address] Gastroenterology H&P Signed Patient: Taye Gay MR#: [id number] : 1955 Acct:[id number] Age/Sex: 68 / F Adm Date: Loc: Room: Type: [facility] Attending Dr: Manjit Gleason MD Copies [...] signed by Manjit Gleason MD> 09/10/24 1241 [facility] Work Phone: History general Narrative - Reported* Type Description Date Medical History HTN Medical HistoryDiabetesMedical HistoryObesityMedical HistoryHLPMedical History tonsillectomyMedical HistoryhysterectomyMedical HistoryCataracts removed BilateralMedical HistoryUpper eye liftSurgical HistorytonsillectomySurgical HistoryhysterectomySurgical Historycataracts, bilaterallySurgical Historyeye lid surgerySurgical Historyremoved cervix12/2018 Painting With A Twist Other History general Narrative - Reported* Type Description Date Medical History HTN Medical HistoryDiabetesMedical HistoryObesityMedical HistoryHLPMedical History tonsillectomyMedical HistoryhysterectomyMedical HistoryCataracts removed BilateralMedical HistoryUpper eye liftSurgical HistorytonsillectomySurgical HistoryhysterectomySurgical Historycataracts, bilaterallySurgical Historyeye lid surgerySurgical Historyremoved cervix12/2018Hospitalization HistorySee Above Painting With A Twist Other History general Narrative - Reported* Type Description Date Medical History HTN Medical HistoryDiabetesMedical HistoryObesityMedical HistoryHLPMedical History tonsillectomyMedical HistoryhysterectomyMedical HistoryCataracts removed BilateralMedical HistoryUpper eye liftSurgical HistorytonsillectomySurgical Historypartial hysterectomySurgical Historycataracts, bilaterallySurgical Historyeye lid surgery--bilateralSurgical Historyremoved cervix12/2018 Hospitalization HistorySee Above Painting With A Twist Other Hisvifu general Narrative - Reported* Type Description Date Medical History HTN Medical HistoryDiabetesMedical HistoryObesityMedical HistoryHLPMedical History tonsillectomyMedical HistoryhysterectomyMedical HistoryCataracts removed BilateralMedical HistoryUpper eye liftSurgical HistorytonsillectomySurgical Historypartial hysterectomySurgical Historycataracts, bilaterallySurgical Historyeye lid surgery--bilateralSurgical Historyremoved cervix12/2018Surgical HistoryCholecystectomyurgical HistoryLeft foot and great toe surgery 12/29/2021[facility] HistoryUTI and gallbladder removal11/2021 Painting With A Twist Other History general Narrative - Reported* Type Description Date Medical History HTN Medical HistoryDiabetesMedical HistoryObesityMedical HistoryHLPMedical History tonsillectomyMedical HistoryhysterectomyMedical HistoryCataracts removed BilateralMedical HistoryUpper eye liftSurgical HistorytonsillectomySurgical Historypartial hysterectomySurgical Historycataracts, bilaterallySurgical Historyeye lid surgery--bilateralSurgical Historyremoved cervix12/2018Surgical HistoryCholecystectomy12/12/21Surgical HistoryLeft foot and great toe surgery 12/29/2021Hospitalization HistorySee AboveHospitalization HistoryUTI and gallbladder removal11/2021 [facility] Other Hospital [facility] Work Phone: Hospital Discharge instructionsPrem[facility] Work Phone: Hospital Discharge instructionsPrem[facility] Work Phone: Hospital Discharge instructionsPrem[facility] Work Phone: Hospital Discharge instructionsAmbulatory Orders* [...] - Care to be managed by PCP [facility] Work Phone: Hospital Discharge instructions Additional Instructions I may not have addressed or treated all of your medical illnesses or the abnormal blood work or imaging studies during this hospitalization. Please ask your primary care provider to obtain [facility] records entirely to follow up on all [...] drug interaction. Discharging you from [facility] does not mean that your medical care ends here and now. You may still need additional monitoring, work up, investigation, and treatment plan to be handled from this point on by out patient providers including your primary care provider and specialists. For any medication question, please contact your retail pharmacist or your primary care provider. Thank you.[facility] Work Phone: Hospital Discharge instructionsAmbulatory Orders* Referral to Pain Management Location: None Selected [facility] Work Phone: Progress note Author Arleen Stephen [facility] December 10, 2021 11:26amNote Date/TimeAugust 2021 11:26am[place] [address] Hospitalist Progress Note Signed Patient: Taye Gay MR#: [id number] : 1955 Acct:[id number] Age/Sex: 66 / F Adm Date: 2 Loc: Room: [address] [place] [address] Type: ADM IN Attending Dr: Arleen Stephen [...] 1,000 Ml IV 12/09/22 11:29 75 mls/hr .[id number] PARMJIT Administration Ceftriaxone Sodium 1 gm in [...] <Electronically signed by Arleen Stephen MD> 12/10/21 [facility] Work Phone: Progress note Author Arleen Stephen [facility] December 11, 2021 1:33pmNote Date/TimeAugust 2021 1:30pm[place] [address] Hospitalist Progress Note Signed Patient: Taye Gay MR#: [id number] : 1955 Acct:[id number] Age/Sex: 66 / F Adm Date: 2 Loc: Room: [address] [place] [address] Type: ADM INOo Attending Dr: Arleen Stephen [...] signed by Arleen Stephen MD> 12/11/21 1333 [facility] Work Phone: Progress note Author Walter Ulises [facility] December 12, 2021 8:07amNote Date/TimeAugust 2021 8:[address] [address] General Surgery Progress Note Signed Patient: Taye Gay MR#: [id number] : 1955 Acct:[id number] Age/Sex: 66 / F Adm Date: 2 Loc: Room: [address] [place] [address] Type: ADM INOo Attending Dr: Arleen Stephen [...] 50 mls @ 100 mls/hr IV Q24H [facility] Last Infusion: 12/11/21 10:15 Dose: Infused Sodium Chloride (0.9% Sodium Chloride 1,000 Ml) 1,000 mls @ 100 mls/hr IV .[id number] Stop: 12/12/22 00:00 Last Admin: 12/12/21 00:10 Dose: 100 mls/hr Insulin Aspart (Insulin Aspart 300 Units/3 Ml Insuln.Pen) 0 units SUBCUT TID.[facility]; Protocol Stop: 12/09/22 11:59 Last Admin: 12/11/21 21:21 Dose: 3 units Nortriptyline HCl (Nortriptyline 25 Mg Capsule) 50 mg PO BID [facility] Stop: 12/09/22 20:59 Last Admin: 12/11/21 21:20 Dose: 50 mg Omeprazole (Omeprazole 20 Mg Capsule.Dr) 20 mg PO DAILY [facility] Stop: 12/10/22 08:59 Last Admin: 12/11/21 08:00 Dose: 20 mg Ondansetron HCl (Ondansetron 4 Mg/2 Ml Vial) 4 mg IV-PUSH Q8H PRN PRN Reason: Nausea And Vomiting Stop: 12/09/22 11:18 Pioglitazone HCl (Pioglitazone 15 Mg Tablet) 15 mg PO DAILY [facility] Stop: 12/10/22 08:59 Last Admin: [...] 15 Mg Capsule) 30 mg PO QHS [facility] Stop: 12/09/22 21:59 Last Admin: [...] Neut % (Auto) 66.8, Lymph % (Auto) 21.0,[place] % (Auto) 9.2, Eos % (Auto) 2.6, Baso % (Auto) 0.4, Neut # (Auto) 4.1, Lymph # (Auto) 1.3, [place]# (Auto) 0.6, Eos # (Auto) 0.2, Baso # (Auto) 0.0, Nucleated RBC % (auto) 0.1 12/11/21 11:05: POC Glucose 195 12/11/21 06:58: POC Glucose 172 12/10/21 21:10: POC Glucose 249 12/10/21 16:18: POC Glucose 176 12/10/21 11:20: POC Glucose 268 12/10/21 06:50: PHA Creatinine Clear 75.03, Sodium 139, Potassium 4.0, Chloride 107, Carbon Npjslhu01.2, BUN 8 L, Creatinine 0.86, Est GFR [...] <Electronically signed by DO Walter Montgomery> 12/12/21806 [facility] Work Phone: Progress note Author Arleen Stephen [facility] December 12, 2021 1:20pmNote Date/TimeAugust 2021 1:20pm[place] [address] Hospitalist Progress Note Signed Patient: Taye Gay MR#: [id number] : 1955 Acct:[id number] Age/Sex: 66 / F Adm Date: 2 Loc: Room: [address] [place] [address] Type: ADM INOo Attending Dr: Arleen Stephen [...] signed by Arleen Stephen MD> 12/12/21 1320 [facility] Work Phone: Progress note Author Teresa Lue [facility] December 12, 2021 8:43pmNote Date/TimeAugust 2021 2:49pm[place] [address] Urology Progress Note Signed Patient: Taye Gay MR#: [id number] : 1955 Acct:[id number] Age/Sex: 66 / F Adm Date: 2 Loc: Room: [address] [place] [address] Type: ADM INOo Attending Dr: Arleen Stephen [...] Sodium 136, Potassium 3.8, Chloride 103, Carbon Pbvjbys80.5, BUN 5 L, Creatinine 0.76, Est GFR [...] % (Auto) 72.7, Lymph % (Auto) 16.1, [place] % (Auto) 8.8, Eos % (Auto) 2.1, Baso % (Auto) 0.3, Neut # (Auto) 5.3, Lymph # (Auto) 1.2, [place] # (Auto) 0.6, Eos# (Auto) 0.2, Baso [...] Neut % (Auto) 66.8, Lymph % (Auto) 21.0,[place] % (Auto) 9.2, Eos % (Auto) 2.6, Baso % (Auto) 0.4, Neut # (Auto) 4.1, Lymph # (Auto) 1.3, [place]# (Auto) 0.6, Eos # (Auto) 0.2, Baso [...] <Electronically signed by Teresa Strong MD> 12/12/212042 [facility] Work Phone: Progress note Author Walter Montgomery [facility] December 13, 2021 8:52amNote Date/TimeAugust 2021 8:52am[place] [address] General Surgery Progress Note Signed Patient: Taye Gay MR#: [id number] : 1955 Acct:[id number] Age/Sex: 66 / F Adm Date: 2 Loc: Room: [address] [place] [address] Type: ADM INOo Attending Dr: Wilmer Vance [...] 81 Mg Tablet.) 81 mg PO DAILY [facility] Stop: 12/10/22 08:59 Last Admin: 12/12/21 10:33 Dose: Not Given Atorvastatin Calcium (Atorvastatin 10 Mg Tablet) 10 mg PO DAILY [facility] Stop: 12/10/22 08:59 Last Admin: 12/12/21 10:33 Dose: Not Given Cyanocobalamin (Cyanocobalamin 1,000 Mcg Tablet) 1,000 mcg PO DAILY [facility] Stop: 12/13/22 08:59 Dextrose (Dextrose 50% In Water 25 Gm/50 Ml Syringe) 0 gm IV-PUSH PRN PRN PRN Reason: Hypoglycemia Stop: 12/09/22 11:18 Docusate Sodium (Docusate 100 Mg Capsule) 100 mg PO TID [facility] Stop: 12/12/22 21:59 Last Admin: 12/12/21 22:26 Dose: 100 mg Enoxaparin Sodium (Enoxaparin 40 Mg/0.4 Ml Syringe) 40 mg SUBCUT DAILY@10 [facility] Stop: 12/10/22 09:59 Last Admin: [...] 50 mls @ 100 mls/hr IV Q24H [facility] Last Admin: 12/12/21 11:57 Dose: 100 mls/hr Sodium Chloride (0.9% Sodium Chloride 1,000 Ml) 1,000 mls @ 100 mls/hr IV .[id number] Stop: 12/12/22 00:00 Last Infusion: 12/13/21 03:35 Dose: Infused Lactated Ringer's (Lactated Ringers) 1,000 mls @ 20 mls/hr IV .Q24H [facility] Stop: 12/13/21 11:13 Last Infusion: 12/13/21 03:31 Dose: Infused Insulin Aspart (Insulin Aspart 300 Units/3 Ml Insuln.Pen) 0 units SUBCUT TID.[facility]; Protocol Stop: 12/09/22 11:59 Last Admin: 12/13/21 08:07 Dose: 4 units Nortriptyline HCl (Nortriptyline 25 Mg Capsule) 50 mg PO BID [facility] Stop: 12/09/22 20:59 Last Admin: 12/12/21 22:27 Dose: 50 mg Omeprazole (Omeprazole 20 Mg Capsule.Dr) 20 mg PO DAILY [facility] Stop: 12/10/22 08:59 Last Admin: 12/12/21 10:33 Dose: Not Given Ondansetron HCl (Ondansetron 4 Mg/2 Ml Vial) 4 mg IV-PUSH Q6H PRN PRN Reason: Nausea And Vomiting Stop: 12/12/22 18:19 Pioglitazone HCl (Pioglitazone 15 Mg Tablet) 15 mg PO DAILY [facility] Stop: 12/10/22 08:59 Last Admin: [...] Sodium 137, Potassium 4.4, Chloride 105, Carbon Txioecz86.6, BUN 12, Creatinine 0.75, Est GFR ( Amer) > 60, Est GFR (Non-Af Amer) > 60, TotalBilirubin 0.7, Direct Bilirubin 0.2, Indirect Bilirubin 0.5 12/13/21 05:58: Corrected WBC 9.4, Uncorrected WBC Count 9.4, RBC 4.41, Hgb 14.2, Hct 41.9, MCV 95.1, MCH 32.2, MCHC 33.9, RDW 12.9, Plt Count 178, MPV 9.3,Neut % (Auto) 90.4, Lymph % (Auto) 7.7, [place] % (Auto) 1.8, Eos % (Auto) 0.0, Baso % (Auto) 0.1, Neut # (Auto) 8.5 H, Lymph # (Auto) 0.7 L, [place]# (Auto) 0.2, Eos # (Auto) 0.0, Baso # (Auto) 0.0, Nucleated RBC % (auto) 0.0 12/12/21 20:42: POC Glucose 214 12/12/21 18:25: POC Glucose 178 12/12/21 15:26: POC Glucose 133 12/12/21 11:48: POC Glucose 167 12/12/21 07:47: PHA Creatinine Clear 83.77, Sodium 136, Potassium 3.8, Chloride 103, Carbon Drjrbvr09.5, BUN 5 L, Creatinine 0.76, Est GFR [...] % (Auto) 72.7, Lymph % (Auto) 16.1, [place] % (Auto) 8.8, Eos % (Auto) 2.1, Baso % (Auto) 0.3, Neut # (Auto) 5.3, Lymph # (Auto) 1.2, [place] # (Auto) 0.6, Eos# (Auto) 0.2, Baso [...] Neut % (Auto) 66.8, Lymph % (Auto) 21.0,[place] % (Auto) 9.2, Eos % (Auto) 2.6, Baso % (Auto) 0.4, Neut # (Auto) 4.1, Lymph # (Auto) 1.3, [place]# (Auto) 0.6, Eos # (Auto) 0.2, Baso [...] signed by DO Walter Montgomery> 12/13/21 0852 [facility] Work Phone: Progress note Author Priscilla Lang [facility] CenterNote Date/TimeJanuary 2024 11:02am [place] [address] Hospitalist Progress Note Signed Patient: Taye Gay MR#: [id number] : 1955 Acct:[id number] Age/Sex: 68 / F Adm Date: 4 Loc: Room: [address] [place] [address] Type: ADM IN Attending Dr: Priscilla Lang [...] of dementia, possible Alzheimer's dementia -continue home wommtcmzg67 mg twice daily and donepezil 20 mg [...] signed by Priscilla Lang MD> 04/29/24 1102 [facility] Work Phone: Progress note Author Lti Clark [facility] CenterNote Date/TimeJanuary 2024 12:30pm [place] [address] Neurology Progress Note Signed with Addenda Patient: Taye Gay MR#: [id number] : 1955 Acct:[id number] Age/Sex: 68 / F Adm Date: 4 Loc: Room: [address] [place] [address] Type: ADM IN Attending Dr: Priscilla Lang MD Copies to: ~ ADDENDUM1 Patient has refused to remove her nail stateless for MRI. Unable to confirm whether or [...] may be metabolic in nature and not parts counter representative necessarily of transient ischemia or of [...] signed by Lit Clark DO> 04/30/24 0708 [facility] [employer] Work Phone: Reason for referral (narrative)No reason for referral information availablePremier Health Upper [facility] Center [employer] Work Phone: Reason for visit Narrative* Other Medical (Routine) - ClosedSpecialtyDiagnoses / ProceduresReferred By ContactReferred To Contact Neurology Diagnoses Numbness Leg pain, left Leg pain, right Bilateral leg weakness Procedures EMG AND NERVE CONDUCTION STUDY Oz Kincaid MD [address] [place] [address] Phone: tel: fax: Oz Kincaid MD [address] [address] Phone: tel: fax: Referral IDStatusReasonStsibley DateExpiration DateVisits RequestedVisits [id number] Perform Procedure / [facility] Narrative* Other Medical (Routine) - Closed SpecialtyDiagnoses / ProceduresReferred By ContactReferred To ContactNeurology Diagnoses Arm weakness Numbness Arm pain, right Arm pain, left Procedures EMG AND NERVE CONDUCTION STUDY Oz Kincaid MD [address] [place] [address] Phone: tel: fax: Oz Kincaid MD [address] [address] Phone: tel: fax: Referral IDStatusReasonStsibley DateExpiration DateVisits RequestedVisits [id number] Perform Procedure / [facility] Summary Purpose Family History Relationship Condition Age [...] neoplasmUnknownDeceasedUnknownmotherDeceased UnknownHeart diseaseUnknownHypertensionUnknownsonDiabetes mellitusUnknownsister DeceasedUnknownbrotherDeceasedUnknown Advance Directives Advance Directive Response Recorded Date/ Time Advance Directives No December 5:05pm Advance Directive Response Recorded Date/ Time Advance Directives No December 4:05pm Procedure Findings Note HNO ID: [id number] Author: Phi Joaquin Service: Gynecology Oncology Author Type: Physician Type: Brief Op Note Filed: 01/17/2019 7:15 PM Note Text: BRIEF OPERATIVE / PROCEDURE NOTE LOG ID: [id number] SURGERY/PROCEDURE DATE: 01/01/2019 INCISION/PROCEDURE START TIME: 8:11 AM INCISION CLOSE/PROCEDURE END TIME: 8:34 AM SURGEON(S)/PROCEDURALIST(S) AND PER DIEM PHYSICAL THERAPIST(S): Surgeon(s) and Role: * Theo Joaquin - [...] 01, 2019 TIME: 8:39 AM PAGER/CONTACT #: [id number] Chief Complaint and Reason for Visit Chief Complaint right side pain Low R abd painReason for VisitCholelithiasis Emphysematous cystitis Pyelonephritis Right lateral abdominal pain Chief Complaint g02.97 f17.210 Chief Complaint g02.97 f17.210 Z12.39 Chief Complaint E11.4 Z78.0 Chief Complaint 3 month follow up Reason for Visit BMI 28.0-28.9,adult [id number] Dietary counseling and surveillance Hyperlipidemia Hypertension Insulin long-term use Peripheral neuropathy Type 2 diabetes mellitus Vitamin B 12 deficiency Chief Complaint 3 month follow up PVD FOLLOW UPReason for VisitBMI 28.0-28.9,adult [id number] Dietary counseling and surveillance Hyperlipidemia Hypertension Insulin long-term use Peripheral neuropathy Type 2 diabetes mellitus Vitamin B 12 deficiency Dizziness Hypertension Primary insomnia Type 2 diabetes mellitus Chief Complaint 3 month follow up PVD FOLLOW UP g02.97 f17.210Reason for VisitBMI 28.0-28.9,adult [id number] Dietary counseling and surveillance Hyperlipidemia Hypertension Insulin long-term use Peripheral neuropathy Type 2 diabetes mellitus Vitamin B 12 deficiency Dizziness Hypertension Primary insomnia Type 2 diabetes mellitus PAD (peripheral artery disease) Chief Complaint 3 month follow up PVD FOLLOW UP g02.97 f17.210 E11.9 E78.5 E53.8Reason for VisitBMI 28.0-28.9,adult [id number] Dietary counseling and surveillance Hyperlipidemia Hypertension Insulin long-term use Peripheral neuropathy Type 2 diabetes mellitus Vitamin B 12 deficiency Dizziness Hypertension Primary insomnia Type 2 diabetes mellitus PAD (peripheral artery disease) Chief Complaint PVD FOLLOW UP g02.97 f17.210 E11.9 E78.5 E53.8 Amb Documentation brent on phone chest pains chest painsReason for VisitPAD (peripheral artery disease) BMI 28.0-28.9,adult [id number] Dietary counseling and surveillance Hyperlipidemia Hypertension Peripheral [...] for VisitPAD (peripheral artery disease) BMI 28.0-28.9,adult [id number] Dietary counseling and surveillance Hyperlipidemia Hypertension Peripheral [...] z11.3 e53.1 i70.91 d51.3Reason for VisitBMI 28.0-28.9,adult [id number] Dietary counseling and surveillance Hyperlipidemia Hypertension Peripheral [...] e53.1 i70.91 d51.3 aflutterReason for VisitBMI 28.0-28.9,adult [id number] Dietary counseling and surveillance Hyperlipidemia Hypertension Peripheral [...] aflutter Multiple Falls, ShakyReason for VisitBMI 28.0-28.9,adult [id number] Dietary counseling and surveillance Hyperlipidemia Hypertension Peripheral [...] aflutter Multiple Falls, ShakyReason for VisitBMI 28.0-28.9,adult [id number] Dietary counseling and surveillance Hyperlipidemia Hypertension Peripheral [...] d51.3 aflutter Multiple Falls, Shaky Amb Documentation bernt on phoneReason for VisitBMI 28.0-28.9,adult [id number] Dietary counseling and surveillance Hyperlipidemia Hypertension Peripheral [...] Vitamin B 12 deficiency Weakness BMI 28.0-28.9,adult [id number] Dietary counseling and surveillance Hyperlipidemia Hypertension Peripheral neuropathy Type 2 diabetes mellitus Vitamin B 12 deficiency Chief Complaint E11.9 E78.5 E53.8 Amb Documentation brent on phone chest pains chest pains Amb Documentation Hospital follow up g72.9 g62.9 r79.89 g60.9 z11.3 e53.1 i70.91 d51.3 aflutter Multiple Falls, Shaky Amb Documentation brent on phone typical a flutterReason for VisitBMI 28.0-28.9,adult [id number] Dietary counseling and surveillance Hyperlipidemia Hypertension Peripheral [...] Weakness Abnormal thyroid blood test BMI 28.0-28.9,adult [id number] Dietary counseling and surveillance Hyperlipidemia Hypertension Peripheral neuropathy Type 2 diabetes mellitus Vitamin B 12 deficiency Chief Complaint E11.9 E78.5 E53.8 Amb Documentation brent on phone chest pains chest pains Amb Documentation Hospital follow up g72.9 g62.9 r79.89 g60.9 z11.3 e53.1 i70.91 d51.3 aflutter Multiple Falls, Shaky Amb Documentation brent on phone typical a flutter typical a flutter [facility] [place] follow upReason for VisitBMI 28.0-28.9,adult [id number] Dietary counseling and surveillance Hyperlipidemia Hypertension Peripheral [...] Weakness Abnormal thyroid blood test BMI 28.0-28.9,adult [id number] Dietary counseling and surveillance Hyperlipidemia Hypertension Peripheral neuropathy Type 2 diabetes mellitus Vitamin B 12 deficiency Hospital discharge follow-up Hypomagnesemia Chief Complaint E11.9 E78.5 E53.8 Amb Documentation brent on phone chest pains chest pains Amb Documentation Hospital follow up g72.9 g62.9 r79.89 g60.9 z11.3 e53.1 i70.91 d51.3 aflutter Multiple Falls, Shaky Amb Documentation brent on phone typical a flutter typical a flutter [facility] follow up G62.9 G60.9 R79.89 Z11.3 E53.1 I70.31 D51.3Reason for VisitBMI 28.0-28.9,adult [id number] Dietary counseling and surveillance Hyperlipidemia Hypertension Peripheral [...] Weakness Abnormal thyroid blood test BMI 28.0-28.9,adult [id number] Dietary counseling and surveillance Hyperlipidemia Hypertension Peripheral neuropathy Type 2 diabetes mellitus Vitamin B 12 deficiency Hospital discharge follow-up Hypomagnesemia Chief Complaint E11.9 E78.5 E53.8 Amb Documentation brent on phone chest pains chest pains Amb Documentation Hospital follow up g72.9 g62.9 r79.89 g60.9 z11.3 e53.1 i70.91 d51.3 aflutter Multiple [place], Shaky Amb Documentation brent on phone typical a flutter typical a flutter [facility] follow up G62.9 G60.9 R79.89 Z11.3 E53.1 I70.31 D51.3 g62.9 r79.89 g60.9 z11.3 e53.1 d51.3Reason for VisitBMI 28.0-28.9,adult [id number] Dietary counseling and surveillance Hyperlipidemia Hypertension Peripheral [...] Weakness Abnormal thyroid blood test BMI 28.0-28.9,adult [id number] Dietary counseling and surveillance Hyperlipidemia Hypertension Peripheral neuropathy Type 2 diabetes mellitus Vitamin B 12 deficiency Hospital discharge follow-up Hypomagnesemia Chief Complaint g72.9 g62.9 r79.89 g 60.9 z11.3 e53.1 i70.91 d51.3 aflutter Multiple [place], Shaky Amb Documentation brent on phone typical a flutter typical a flutter [facility] follow up G62.9 G60.9 R79.89 Z11.3 E53.1 I70.31 D51.3 g62.9 r79.89 g60.9 z11.3 e53.1 d51.3 M54.17Reason for VisitAmbulatory dysfunction Hypomagnesemia Hypothyroid Type 2 diabetes mellitus with hyperglycemia Vitamin B 12 deficiency Weakness Abnormal thyroid blood test BMI 28.0-28.9,adult [id number] Dietary counseling and surveillance Hyperlipidemia Hypertension Peripheral neuropathy Type 2 diabetes mellitus Vitamin B 12 deficiency Hospital discharge follow-up Hypomagnesemia Chief Complaint g72.9 g62.9 r79.89 g 60.9 z11.3 e53.1 i70.91 d51.3 aflutter Multiple Falls, Shaky Amb Documentation brent on phone typical a flutter typical a flutter [facility] follow up G62.9 G60.9 R79.89 Z11.3 E53.1 I70.31 D51.3 g62.9 r79.89 g60.9 z11.3 e53.1 d51.3 M54.17 R60.0 M79.671 r/o dvtReason for VisitAmbulatory dysfunction Hypomagnesemia Hypothyroid Type 2 diabetes mellitus with hyperglycemia Vitamin B 12 deficiency Weakness Abnormal thyroid blood test BMI 28.0-28.9,adult [id number] Dietary counseling and surveillance Hyperlipidemia Hypertension Peripheral neuropathy Type 2 diabetes mellitus Vitamin B 12 deficiency Hospital discharge follow-up Hypomagnesemia Chief Complaint g72.9 g62.9 r79.89 g 60.9 z11.3 e53.1 i70.91 d51.3 aflutter Multiple Falls, Shaky Amb Documentation brent on phone typical a flutter typical a flutter [facility] follow up G62.9 G60.9 R79.89 Z11.3 E53.1 I70.31 D51.3 g62.9 r79.89 g60.9 z11.3 e53.1 d51.3 M54.17 R60.0 M79.671 r/o dvt L97.511 L03.115 lumbosacral radiculopathy at g9Pdtykh for VisitAmbulatory dysfunction Hypomagnesemia Hypothyroid Type 2 diabetes mellitus with hyperglycemia Vitamin B 12 deficiency Weakness Abnormal thyroid blood test BMI 28.0-28.9,adult [id number] Dietary counseling and surveillance Hyperlipidemia Hypertension Peripheral neuropathy Type 2 diabetes mellitus Vitamin B 12 deficiency Hospital discharge follow-up Hypomagnesemia Chief Complaint aflutter Multiple Falls, Shaky Amb Documentation brent on phone typical a flutter typical a flutter [facility] follow up G62.9 G60.9 R79.89 Z11.3 E53.1 I70.31 D51.3 g62.9 r79.89 g60.9 z11.3 e53.1 d51.3 M54.17 R60.0 M79.671 r/o dvt L97.511 L03.115 lumbosacral radiculopathy at s1 8 Month F/UReason for VisitAmbulatory dysfunction Hypomagnesemia Hypothyroid Type 2 diabetes mellitus with hyperglycemia Vitamin B 12 deficiency Weakness Abnormal thyroid blood test BMI 28.0-28.9,adult [id number] Dietary counseling and surveillance Hyperlipidemia Hypertension Peripheral [...] 2024 11:14am Dietary counseling and surveillance [facility] 2023 11:14am Hyperlipidemia April 28, 2024 [...] 2024 11:14am Dietary counseling and surveillance [facility] 2023 11:14am Hyperlipidemia April 28, 2024 11:14am Hypertension April 28, 2024 11:14am Peripheral neuropathy April 28 11:14am Type 2 diabetes mellitus April 28, 2024 11:14am Vitamin B 12 deficiency April 28 11:14am Atrial fibrillation April 28, 2024 10:38pm Generalized weakness April 28, 2024 10:38pm Insulin dependent diabetes mellitus [facility] 2023 10:38pm TIA (transient ischemic attack) April 28, 2024 10:38pm Chief Complaint Admit Date Screening, Dysphagia February 14, 2024 12:30pm NEW elevated WBC April 14, 2024 9:30am irregular heart beat, dizziness, weaknes s April 27, 2024 2:18pm Follow Up 2 Weeks April 28, 2024 9:53am brent on phone April 28, 2024 11:14am Weakness April 28, 2024 10:38pm [facility] FOLLOW UP May 07 1:02pm Reason for Visit Admit Date High granulocyte count April 14 9:30am Secondary polycythemia April 14 9:30am High granulocyte count April 28 9:53am Secondary polycythemia April 28 9:53am BMI 32.0-32.9,adult April 28, 2024 11:14am Chronic kidney disease (CKD) stage G2/A2, mildly decreased glomerular filtr April 28, 2024 11:14am Dietary counseling and surveillance [facility] 2023 11:14am Hyperlipidemia April 28, 2024 11:14am Hypertension April 28, 2024 11:14am Peripheral neuropathy April 28 11:14am Type 2 diabetes mellitus April 28, 2024 11:14am Vitamin B 12 deficiency April 28 11:14am Atrial fibrillation April 28, 2024 10:38pm Generalized weakness April 28, 2024 10:38pm Insulin dependent diabetes mellitus [facility] 2023 10:38pm TIA (transient ischemic attack) April 28, 2024 10:38pm Cigarette nicotine dependence April 1:02pm Chief Complaint Admit Date NEW elevated WBC April 14, 2024 9:30am irregular heart beat, dizziness, weaknes s April 27, 2024 2:18pm Follow Up 2 Weeks April 28, 2024 9:53am brent on phone April 28, 2024 11:14am Weakness April 28, 2024 10:38pm [facility] FOLLOW [...] 2024 11:14am Dietary counseling and surveillance [facility] 2023 11:14am Hyperlipidemia April 28, 2024 11:14am Hypertension April 28, 2024 11:14am Peripheral neuropathy April 28 11:14am Type 2 diabetes mellitus April 28, 2024 11:14am Vitamin B 12 deficiency April 28, 024 11:14am Atrial fibrillation April 28, 2024 10:38pm Generalized weakness April 28, 2024 10:38pm Insulin dependent diabetes mellitus [facility] 2023 10:38pm TIA (transient ischemic attack) [...] Up 2 Weeks April 28, 2024 9:53am rbent on phone April 28, 2024 11:14am Weakness April 28, 2024 10:38pm [facility] FOLLOW UP May 07 1:02pm G45.9 [...] 2024 11:14am Weakness April 28, 2024 10:38pm [facility] FOLLOW [...] 2024 11:14am Weakness April 28, 2024 10:38pm [facility] FOLLOW [...] 2024 10:38pm Insulin dependent diabetes mellitus [facility] 2023 10:38pm TIA (transient ischemic attack) [...] 2024 11:14am Dietary counseling and surveillance [facility] 2023 11:14am Hyperlipidemia April 28, 2024 11:14am Hypertension April 28, 2024 11:14am Peripheral neuropathy April 28 11:14am Type 2 diabetes mellitus April 28, 2024 11:14am Vitamin B 12 deficiency April 28 11:14am Atrial fibrillation April 28, 2024 10:38pm Generalized weakness April 28, 2024 10:38pm Insulin dependent diabetes mellitus [facility] 2023 10:38pm TIA (transient ischemic attack) [...] 2024 1:46pm Insulin dependent diabetes mellitus Augu 2024 1:46pm Lumbar spondylosis December 15, 2024 [...] 1:23pm Vitamin B 12 deficiency January 05 2 025 1:23pm Current every day smoker [...] Procedures ECG 12 Lead Jonas Ch MD [address] [place] [address] 2, [place] [address] [place] [address] Referral IDStatusReasonStart DateExpiration DateVisits RequestedVisits [id number]/17/20247/17/[id number] / Procedures Referred By ContactReferred To Contact Diagnoses Typical atrial flutter (Multi) Procedures Complete Pulmonary Function Test (Spirometry/DLCO/Lung Volumes) Jonas Ch MD [facility] [facility] 2, [address] [address] Referral IDStatusReasonStart DateExpiration DateVisits RequestedVisits [id number] [id number] / ProceduresReferred By ContactReferred To ContactRadiology Diagnoses Typical atrial flutter (Multi) Procedures XR chest 2 views Jonas Ch MD [address] [place] [address] 2, [address] [address] Referral IDStatusReasonStart DateExpiration DateVisits RequestedVisits [id number] Perform Procedure /[id number] / ProceduresReferred By ContactReferred To ContactCardiology Diagnoses Nonischemic cardiomyopathy (Multi) Procedures Follow Up In Cardiology Jonas Ch MD [facility] [facility] 2, [place] [address] [place] [address] Roland Faust MD [facility] [facility] 2, [place] [address] [place] [address] Referral IDStatusReasonStart DateExpiration DateVisits RequestedVisits [id number]/17/20247/17/[id number] / Procedures Referred By ContactReferred To ContactCardiology Diagnoses Typical atrial flutter (Multi) Procedures Cardioversion External Jonas Ch MD [facility] [address], [address] [address] Referral IDStatusReasonBlue Ridge DateExpiration DateVisits RequestedVisits [id number] [id number] / ProceduresReferred By ContactReferred To ContactCardiology Diagnoses Typical atrial flutter (Multi) Procedures Follow Up In Cardiology Jonas Ch MD [facility] [facility] 2, [facility] [address] [place] [address] Jonas Ch MD [address] [place] [address] [address], [address] [address] Referral IDStatusReasonBlue Ridge DateExpiration DateVisits RequestedVisits [id number]/10/20246/10/202511 Reason LEFT FOOT INJURY Diagnosis 1 Type 2 diabetes ye itus with hyperglycemia (E11.65) Diagnosis 2 Injury of foot, left (S99.922A) Referral Organization [facility] Referring Provider First Name Angelique Referring Provider Last Name Yvonne Referring Provider Specialty Nurse Pract itioner Referred Organization [facility] Referred Provider Karl Fritz Referred Address ,[place], [place],[address] Referred Provider Specialty Podiatry - S urgical Chiropody Referral Priority Routine Referral Appointment Date 2023-01-09 General Notes Emerald Doshi 12/28 03:26:20 PM >SCHEDULED FOR 01/09/23 AT 10:15AM. PATIENT INFORMED. Additional Source Comments INFORMATION SOURCE (unrecogn ized section and content) DATE CREATED AUTHOR 10/21/2017 [facility] DATE CREATED AUTHOR AUTHOR'S ORGANIZ ATION 10/22/2017 [facility] DATE CREATED AUTHOR AUTHOR'S ORGANIZ ATION 02/16/2019 [facility] DATE CREATED AUTHOR AUTHOR'S ORGANIZ ATION 02/02/2022 [facility] DATE CREATED AUTHOR AUTHOR'S ORGANIZ ATION 11/16/2024 [facility] DATE CREATED AUTHOR AUTHOR'S ORGANIZ ATION 01/01/2025 [facility] DATE CREATED AUTHOR AUTHOR'S ORGANIZ ATION 02/08/2025 [facility] DATE CREATED AUTHOR AUTHOR'S ORGANIZ ATION 02/11/2025 [facility] DATE CREATED AUTHOR AUTHOR'S ORGANIZ ATION 02/20/2025 [facility] REASON FOR VISIT (unrecogniz ed section and content) ReasonCommentsHospital [facility] [place] [place] 09/14/23ReasonCommentsPeripheral Neuropathy ReasonCommentsBlood Pressure CheckWith ekgSpecialtyDiagnoses / Procedures Referred By ContactReferred To ContactCardiology Diagnoses Hypertension, unspecified type Procedures Follow Up In Cardiology Roland Faust MD [address] [place] [address], [address] [address] Phone: tel: fax: Roland Faust MD [address] [place] [address] 2, [address] [address] Phone: tel: fax: Referral IDStatusReasonStart DateExpiration DateVisits RequestedVisits [id number]/11/202411/11/382069DaolhwFhpohfysKpgbjh-dnANZ follow upSpecialtyDiagnoses / ProceduresReferred By ContactReferred To Contact Cardiology Diagnoses Typical atrial flutter (Multi) Procedures Follow Up In Cardiology Jonas Ch MD [address] [place] [address] 2, [address] [address] Jonas Ch MD [address] [place] [address], [address] [address] Referral IDStatusasonBlue Ridge DateExpiration DateVisits RequestedVisits [id number]/10/20246/10/[id number] decline ReasonCommentsFollow-upMedication change, Amio d/cSpecialtyDiagnoses / ProceduresReferred By ContactReferred To ContactCardiology Diagnoses Typical atrial flutter (Multi) Procedures Follow Up In Cardiology Roland Faust MD [facility] [facility] 2, [place] [address] Roland Faust MD [facility] 2, [place] [id number] Referral IDStatusReasonStart DateExpiration DateVisits RequestedVisits [id number]/1/20248/697869TbdxqbqmkFfbffivth / Procedures Referred By ContactReferred To ContactNeurology Diagnoses Carpal tunnel syndrome, bilateral upper limbs Procedures [place] INJECTION THERAPEUTIC CARPAL TUNNEL WV KETOROLAC TROMETHAMINE INJ 1 CC STERILE SYRINGE&NEEDLE Oz Kincaid MD [address] [place] [address] Oz Kincaid MD [address] [place] [address] Referral IDStatusReasonStsibley DateExpiration DateVisits RequestedVisits [id number] Perform Procedure /[id number]-nc9 month with EKG. Pt denies c/o at this time.SpecialtyDiagnoses / ProceduresReferred By ContactReferred To Contact Cardiology Diagnoses Nonischemic cardiomyopathy (Multi) Procedures Follow Up In Cardiology Jonas Ch MD Traboulssi, Mourhaf, MD [address] [place] [address] 2, [place] [id number] Phone: tel: fax: Referral IDStatusReasonStart DateExpiration DateVisits RequestedVisits [id number] Review7/[id number] declineReasonCommentsMed RefillReasonCommentsFollow-up6 month, nonischemic cardiomyopathySpecialtyDiagnoses / ProceduresReferred By ContactReferred To ContactCardiology Diagnoses Nonischemic cardiomyopathy (Multi) Procedures Follow Up In Cardiology Roland Faust MD [facility] 2, [address] [address] Phone: tel: fax: Referral IDStatusReasonStart DateExpiration DateVisits RequestedVisits [id number]/28/20252/28/[id number]m Exam Patient present for New patient yearly [...] Start: June 26, 2024 End: June 26, 2024Roland Faust MDAttmalcolm ProviderActiveStart: June 26, 2024 End: June 26, 2024Angelique Russell APRNOther ProviderActiveStart: June 26, 2024 End: June 26, 2024 Team Status: Active Member Role Status Dates Sandra Keita DO Primary Care Provider Active Start: June 26, 2024 Nataliya Jane , APRNAttending ProviderActiveStart: June 26, 2024 Oz Kincaid , MDReferring ProviderActiveStart: June 26, 2024 Team Status: Inactive Member Role Status Dates Deneen Frost PA-C Attending Provider Active Start: July 06, 2024 End: July 06, 2024 Team Status: Inactive Member Role Status Dates Sandra Keita DO Primary Care Provider Active Start: July 22, 2024 End: July 22, 2024Jackie R Ruttino , FLIGHT DIRECTOR-CAttending ProviderActiveStart: July 22, 2024 End: July 22, 2024 Team Status: Inactive Member Role Status Dates Sandra Keita DO Primary Care Provider Active Start: August 20, 2024 End: August 20, 2024Tondrrebecca Russell , APRNAttending ProviderActiveStart: August 20, 2024 End: August 20, [...] Start: June 12, 2023 End: June 12, 2023Tondrrebecca Russell , APRNAttending ProviderActiveStart: June 12, 2023 End: June 12, 2023 Team Status: Active Member Role Status Dates Jonas Yoder , Primary Care Provider Acti stephanie Fine , MDActiveCaitlin L Rahat , PA-CActiveTondra Estephania Russell , SURVIVAL EQUIPMENT REPAIRER Attending ProviderActive Team Status: Inactive Member Role Status Dates Sandra Keita DO Primary Care Provider, Bradford hartley Active Team Status: Inactive Member Role Status Dates Tray Randle , Emergency Provider Active Roger Kay ProviderActiveWalter Montgomery DOOther ProviderActiveTeresa Strong MDOther ProviderActiveObamarkel Vance MDAttending ProviderActive Rose [facility]arlos Care ProviderActive Team Status: Inactive Member Role [...] Start: September 12, 2023 End: September 12, 2023Tim Guerrero ProviderActiveStart: September 12, 2023 End: September 12, [...] ProviderActiveStart: September 13, 2023 End: September 14, 2023Roland Faust MDOther ProviderActiveStart: September 13, 2023 End: September 13dimple Barbosa MDOther ProviderActiveStart: September 13, 2023 End: September 13ana Fritz APRNOther ProviderActiveStart: September 13, 2023 End: September 14, [...] Care Provider Active Start: September 14, 2023 Chris Burnham ProviderActiveStart: September 14, 2023 Humberto Kraftit Provider, Other ProviderActiveStart: September 14, 2023 Marli Paz RNOther ProviderActiveStart: September 14, 2023 Elly Yoo DOOther ProviderActiveStart: September 14, 2023 Ric Lamar MDOther ProviderActiveStart: September 14, 2023 Jonas Ch MDOther ProviderActiveStart: September 14, 2023 Roland Faust MDOther ProviderActiveStart: September 14, 2023 Manjit Barbosa MDOther ProviderActiveStart: September 14, 2023 Naida Fritz APRNOther ProviderActiveStart: September 14, 2023 Stephanie Stoll MDOther ProviderActiveStart: September 14, 2023 Jann Kaplan MDOther ProviderActiveStart: September 14, 2023 Cara Tenorio MDOther ProviderActiveStart: September 14, 2023 Elizabeth Parra , CASHIER COURTESY BOOTH-BCOther ProviderActiveStart: September 14, 2023 Ashley Cheatham MDOther ProviderActiveStart: September 14, 2023 Sánchez Peresending ProviderActiveStart: September 14, 2023 Team Status: Active Member Role Status Dates Sandra Keita DO Primary Care Provider Active Start: September 16, 2023 Lorenjonathan Denise Nicolas ProviderActiveStart: September 16, 2023 Team Status: Inactive Member Role Status Dates Sandra Keita DO Primary Care Provider Active Start: September 17, 2023 End: September 16Tim Haynes ProviderActiveStart: September 17, 2023 End: September 17, 2023Team MemberRelationshipSpecialtyStart DateEnd Date Sandra Keita DO [address] [place] [address] [facility] Team Status: Active Member Role Status Dates Sandra Keita DO Primary Care Provider Active Start: September 14, 2023 End: September 14, 2023Chris Burnham ProviderActiveStart: September 14, 2023 End: September 14, 2023Elva Florian MDAdmit Provider, Other ProviderActiveStart: September 14, 2023 End: September 14, 2023Marli Paz RNOther ProviderActiveStart: September 14, 2023 End: September 14, 2023W Baltazar Hurley ProviderActiveStart: September 14, 2023 End: September 14, 2023Ric Lamar MDOther ProviderActiveStart: September 14, 2023 End: September 14, 2023Jonas Ch MDOther ProviderActiveStart: September 14, 2023 End: September 14, 2023Roland Faust MDOther ProviderActiveStart: September 14, 2023 End: September 13dimple Barbosa MDOther ProviderActiveStart: September 14, 2023 End: September 13Jerrica Sarah ProviderActiveStart: September 14, 2023 End: September 14, [...] Start: November 05, 2023 End: November 05, 2023Jonas Ch MDAttmalcolm Provider, Referring ProviderActiveStart: November 05, 2023 End: November 05, 2023 Team Status: Active Member Role Status Dates Sandra Keita DO Primary Care Provider Active Start: November 10, 2023 Lorenzo Bentleyrtip ProviderActiveStart: November 10, 2023 Aguilar Royal Provider, Attending ProviderActiveStart: November 10, 2023 Team Status: Inactive Member Role Status Dates Sandra Keita DO Primary Care Provider Active Start: November 10, 2023 End: November 11Lorenzo Cannonrgenkeren ProviderActiveStart: November 10, 2023 End: November 12, 2023Aguilar Royal ProviderActiveStart: November 10, 2023 End: November 12, 2023Saranya OrtegaaOther ProviderActiveStart: November 10, 2023 End: November 12, 2023Cash Aponte PhDOther ProviderActiveStart: November 10, 2023 End: November 12, 2023Jelly Tuttle DOOther ProviderActiveStart: November 10, 2023 End: November 12, 2023John Murillo MDOther ProviderActiveStart: November 10, 2023 End: November 11madisyn Clark DOOther ProviderActiveStart: November 10, 2023 End: November 12, 2023Feandi Dodge ANP-BCOther ProviderActiveStart: November 10, 2023 End: November 11rebecca Isidro DOOther ProviderActiveStart: November 10, 2023 End: November 11johnathon Calvo , APRNOther ProviderActiveStart: November 10, 2023 End: November 11ko Medina FLIGHT DIRECTOR-COther ProviderActiveStart: November 10, 2023 End: November 12, [...] Start: November 14, 2023 End: November 14, 2023Tim Guerrero ProviderActiveStart: November 14, 2023 End: November 14, 2023 Team Status: Inactive Member Role Status Dates Sandra Keita DO Primary Care Provider Active Start: November 15, 2023 End: November 15, 2023Jonas Ch MDAttending ProviderActiveStart: November 15, 2023 End: November [...] , DO Primary Care Provider Active Start: December [...] Start: January 06, 2024 End: January 06, 2024Roland Faust MDAttending ProviderActiveStart: January 06, 2024 End: [...] DateEnd Date Sandra Keita DO [address] [place] [address] PCP - GeneralFamily Medicine01/09/23 Team Status: Inactive Member Role Status Dates Sandra Keita DO Primary Care Provide r, Attending Provider Active Start: February 03, 2024 End: February 03, 2024Team MemberRelationshipSpecialtyStart DateEnd Date Sandra Keita DO [address] [place] [id number] PCP - Generalmily Medicine01/09/23Team MemberRelationshipSpecialtyStart DateEnd Date Sandra Keita DO [address] [place] [address] PCP - GeneralFamily Medicine01/09/23Team MemberRelationshipSpecialtyStart DateEnd Date Sandra Keita DO [address] [place] [address] PCP - GeneralFamily Medicine01/09/23Team MemberRelationshipSpecialtyStart DateEnd Date Sandra Keita DO [address] [place] [address] PCP - GeneralFamily Medicine01/09/23Team MemberRelationshipSpecialtyStart DateEnd Date Sandra Keita DO [address] [place] [address] PCP - GeneralFamily Medicine09/25/23Team MemberRelationshipSpecialtyStart DateEnd Date Sandra Keita DO [address] [place] [phone] PCP - GeneralFamily Medicine01/09/23Team MemberRelationshipSpecialtyStart DateEnd Date Sandra Keita DO [address] [place] [address] PCP - GeneralFamily Medicine01/09/23Team MemberRelationshipSpecialtyStart DateEnd Date Sandra Keita DO [address] [place] [address] PCP - GeneralFamily Medicine01/09/23Team MemberRelationshipSpecialtyStart DateEnd Date Sandra Keita DO [address] [place] [address] PCP - GeneralFamily Medicine09/25/23Team MemberRelationshipSpecialtyStart DateEnd Date Sandra Keita DO [address] [place] [address] PCP - GeneralFamily Medicine01/09/23Team MemberRelationshipSpecialtyStart DateEnd Date Sandra Keita DO [address] [place] [address] PCP - GeneralFamily Medicine01/09/23Team MemberRelationshipSpecialtyStart DateEnd Date Sandra Keita DO [address] [place] [address] PCP - GeneralFamily Medicine09/25/23Team MemberRelationshipSpecialtyStart DateEnd Date Sandra Keita DO [address] [place] [address] PCP - GeneralFamily Medicine01/09/23Team MemberRelationshipSpecialtyStart DateEnd Date Sandra Keita DO [address] [place] [address] PCP - GeneralFamily Medicine01/09/23Team MemberRelationshipSpecialtyStart DateEnd Date Sandra Keita DO [address] [place] [address] PCP - GeneralFamily Medicine01/09/23Team MemberRelationshipSpecialtyStart DateEnd Date Sandra Keita DO [address] [place] [address] PCP - GeneralFamily Medicine01/09/23Team MemberRelationshipSpecialtyStart DateEnd Date Sandra Keita DO [address] [place] [address] PCP - GeneralFamily Medicine01/09/23Team MemberRelationshipSpecialtyStart DateEnd Date Sandra Keita DO [address] [place] [address] PCP - [facility]01/09/23Team MemberRelationshipSpecialtyStart DateEnd Date Sandra Keita DO [address] [place] [address] PCP - [facility]01/09/23Team MemberRelationshipSpecialtyStart DateEnd Date Sandra Keita DO [address] [place] [address] PCP - [facility]01/09/23Team MemberRelationshipSpecialtyStart DateEnd Date Sandra Keita DO [address] [place] [address] PCP - [facility]01/09/23 Team Status: Inactive Member Role [...] Active Start: April 27, 2024 End: April 27atrick M Tupa , DOEmergency ProviderActiveStart: April 27, 2024 End: April 27, 2024 Team Status: Inactive Member Role Status Dates Sandra Keita DO Primary Care Provider Active Start: April 28, 2024 End: April 28, 2024Priscillakarlos Jane , APRNAttending ProviderActive Start: April 28, 2024 End: April 28, 2024Oz Lillian Kincaid , MDReferring ProviderActiveStart: April 28, 2024 Team Status: Inactive Member Role Status Dates Sandra Keita DO Primary Care Provider Active Start: April 28, 2024 End: April 28, 2024Barberrebecca Russell , APRNAttending ProviderActiveStart: April 28, 2024 End: April 28, [...] 28, 2024 End: April 30, 2024Rasantos Lang , MDAttending ProviderActiveStart: April 28, 2024 End: April [...] MemberRelationshipSpecialtyStart DateEnd Date Sandra Keita DO [address] [facility] [place] [address] [facility]09/25/23 Team Status: Inactive Member Role Status Dates Sandra Keita DO Primary Care Provider Active Start: April 28, 2024 End: April 28, 2024Tim Wagner ProviderActive Start: April 28, 2024 End: April 28, 2024Team MemberRelationshipSpecialtyStart DateEnd Date Sandra Keita DO [address] [facility] [place] [address] PCP - [facility]01/09/23 Team Status: Inactive Member Role Status Dates Sandra Keita DO Primary Care Provider Active Start: September 10, 2024 End: September 10, 2024ImaCeline Wiggins ProviderActiveStart: September 10, 2024 End: September 10, 2024 Team Status: Active Member Role Status Dates Sandra Keita DO Primary Care Provider Active Start: September 10, 2024 ImCeline Figueroa Provider, Other ProviderActiveStart: September 10, 2024 Team Status: Inactive Member Role Status Dates Samm Medina MD Attending Provider Active S tart: October 01, 2024 End: October 01, 2024Gloria Ellen Staples ProviderActiveStart: October 01, 2024 End: October 01, 2024PHYSICIAN NO FAMILYPrimary Care ProviderActiveStart: October 01, 2024 End: October 01, 2024Team MemberRelationshipSpecialtyStart DateEnd Date Sandra Keita DO PCP - [facility]01/09/23Team MemberRelationshipSpecialtyStart DateEnd Date Sandra Keita DO PCP - Generalmily Medicine01/09/23Team MemberRelationshipSpecialtyStart DateEnd Date Sandra Keita, [facility] - [facility]/23Team MemberRelationshipSpecialtyStart DateEnd Date Sandra Keita, DO [address] [facility] [place] [address] PCP - [facility]10/15/24Team MemberRelationshipSpecialtyStart DateEnd Date Sandra Keita, DO [address] [place] [place] [phone] PCP - [facility]10/15/24Team MemberRelationshipSpecialtyStart DateEnd Date Sandra Keita, [address] [facility] [place] [phone] PCP - [facility]10/15/24Team MemberRelationshipSpecialtyStart DateEnd Date Sandra Keita, DO [address] [facility] [place] [phone] PCP - [facility]10/15/24 Team Status: Inactive Member Role Status Dates Sandra Keita DO Primary Care Provider Active Start: August 25, 2024 End: August 25, 2024Sandra Keita DOAttmalcolm ProviderActiveStart: August 25, 2024 End: August 25, 2024 Team Status: Active Member Role Status Dates Sandra Keita DO Primary Care Provider Active Start: September 10, 2024 Celine Marcos ProviderActiveStart: September 10, 2024 Manjit Gleason MDOther ProviderActiveStart: September 10, 2024 Team Status: Inactive Member Role Status Dates Karl Fritz DPM Attending Provider Active Start: November 16, 2024 End: November 16, 2024Team MemberRelationshipSpecialtyStart DateEnd Date Sandra Keita DO [address] [facility] [place] [address] [facility] - [facility]10/15/24Team MemberRelationshipSpecialtyStart DateEnd Date Sandra Keita DO [address] [place] [address] [facility] - [facility]10/15/24 Team Status: Active Member Role Status Dates Shantel Norton APRN FLIGHT DIRECTOR-C Primary Care Provider Active Team Status: Inactive Member Role Status Dates Shantel Norton APRN FLIGHT DIRECTOR-C Primary Care Provider Active Start: December 15, 2024 End: December 15, 2024Shantel Norton APRN FLIGHT DIRECTOR-CAttending ProviderActive Start: December 15, 2024 End: December 15, 2024Team MemberRelationshipSpecialtyStart DateEnd Date Sandra Keita DO [address] [place] [address] PCP - [facility]10/15/24 Team Status: Inactive Member Role Status Dates Samm Medina MD Attending Provider Active S tart: December 24, 2024 End: December 24, 2024Shantel Norton APRN FLIGHT DIRECTOR-CPrimary Care ProviderActive Start: December 24, 2024 End: December 24, 2024Team MemberRelationshipSpecialtyStart DateEnd Date Shantel Norton APRN-FISHER [facility]ERRAPIN [address] [place] [address] [facility] Team Status: Active Member Role Status Dates Samm Medina MD Attending Provider Active S tart: December 31, 2024 Samm Medina MDOther ProviderActiveStart: December 31, 2024 Shantel Norton APRN FLIGHT DIRECTOR-CPrimary Care ProviderActiveStart: December 31, 2024 Team Status: Inactive Member Role Status Dates Shantel Norton APRN FLIGHT DIRECTOR-C Primary Care Provider Active Start: January 052024 End: January 05, 2025Angelique Russell APRNAtjoselito ProviderActiveStart: January 05, 2025 End: January 05, 2025 Team Status: Inactive Member Role Status Dates Shantel Norton APRN FLIGHT DIRECTOR-C Primary Care Provider Active Start: December 282024 End: January 12, 2025Shantel Norton APRN FLIGHT DIRECTOR-CAttending ProviderActive Start: January 12, 2025 End: January 12, 2025Team MemberRelationshipSpecialtyStart DateEnd Date Sandra Keita DO [address] [place] [address] PCP - [facility]10/15/24Team MemberRelationshipSpecialtyStart DateEnd Date Sandra Keita DO [address] [place] [address] [facility] - [facility]10/15/24 Team Status: Inactive Member Role Status Dates Shantel Norton APRN FLIGHT DIRECTOR-C Primary Care Provider Active Start: February 02, 2025 End: February 02, 2025Shantel Norton APRN FLIGHT DIRECTOR-CAttending ProviderActive Start: February 02, 2025 End: February 02, 2025Team MemberRelationshipSpecialtyStart DateEnd Date Sandra Keita DO [address] [place] [address] PCP - [facility]10/15/24Team MemberRelationshipSpecialtyStart DateEnd Date Sandra Keita DO [address] [place] [address] PCP - [facility]10/15/24Te MemberRelationshipSpecialtyStart DateEnd Date Sandra Keita DO [address] [place] [address] [facility] - [facility]10/15/24 Goals (unrecognized section and content) [...] BE BASED ON THE PRIMARY CLINICAL RECORDS. [facility] [employer] provides no warranty or guarantee of the accuracy or completeness of information in this document.
== END 2025-03-03 10:55 | disposition home or self-care (01) ==
LOC: WC 10:56
PROVIDERS: Family Provider Family Medicine; PCP Family Medicine; Visit Provider Podiatrist Foot & Ankle Surgery
DX: E11.621 Type 2 diabetes mellitus with foot ulcer (principal); L97.415 Non-pressure chronic ulcer of right heel and midfoot with muscle involvement without evidence of necrosis
CPT/HCPCS: 11043

== ENCOUNTER 2025-03-17 11:10 | Outpatient (OUT) | payer MEDICARE, MEDICAID, SELFPAY ==
--- OUTSIDE RECORDS SUMMARY | 2025-03-17 11:17 | XMS_ITS | CCD ---
Author Organization [facility] CliniSyvt Care Team Providers Care Rescue Worker Name Role Phone MATTHEW VOSS MD Unavailable Unavailable UNASSIGNED, DOCTOR Unavailable Unavailable SUKHWINDER, ELOISA Unavailable Unavailable SUKHWINDER, ELOISA Unavailable Unavailable SUKHWINDER, ELOISA Unavailable Unavailable JONAS YODER Unavailable Unavailab Tray Stockton Unavailable [phone] Angelique Russell Unavailable Crispin Looney Unavailable Ruben Hahn Unavailable DO Tray Randle Emergency Provider Unavai MD Arleen Ralph Admit Provider DO Walter Montgomery Other Provider MD Teresa Strong Other Provider MD Wilmer Vance Attending Provider DO Jonas Yoder Primary Care Provider NO FAMILY, PHYSICIAN Primary Care Provider Unava ilable DO Rl Villavicencio Emergency Provider [phone] Francesca Santos Attending Unavailable ARLEEN STEPHEN Referring Unavailable Teresa Strong Attending Unavailable ARLEEN STEPHEN Referring Unavailable Teresa Strong Attending Unavailable Teresa Strong Attending Unavailable Sandra Keita Unavailable Tlou Salinas Unavailable DO Sandra Keita Primary Care Provider DO Sandra Keita Attending Provider [phone] Reyna Dallas Unavailable Brayden Noble Unavailable DO [...] Stephanie Stoll Other Provider MD Jann [facility] [place] Provider MD Cara Tenorio Other Provider Fidel [facility] Elizabeth [place] Other Provider MD Ashley [...] Provider DO Lit Clark Other Provider Dar [facility] Dayana Other Provider DO Roque Isidro Other Provider NITZA Calvo Other Provider CHERYL Medina Other Provider GRADY Ibrahim-Vamsi Cartagena Other Provider MD Chaka Frye Attending Provider [phone] DO Rl Villavicencio Emergency Provider DO Jluis Campos Admit Provider Saranya Wright Other Provider Unavailable Fay, PhD Cash Other Provider DO Jelly Tuttle Other Provider MD John Murillo Other Provider DO Lit Clark Other Provider Dar [facility] Dayana Other Provider DO Roque Isidro Other Provider NITZA Calvo Other Provider [phone] CHERYL Medina Other Provider GRADY Ibrahim-Vamsi Cartagen[place] Other Provider MD Chaka Frye Attending Provider NITZA Salinas Referring Provider Keita, DO Sandra A Primary Care Provider MD Jonas Ch Referring Provider MD Roland Faust Attending Provider BARRIE Fritz Attending Provider Keita DO, Sandra Primary Care Provider Keita, DO Sandra A Primary Care Provider MD Oz Kincaid Attending Provider Ekita DO, Sandra A Primary Care Provider Manjit Gleason MD Attending Provider Rl Villavicencio DO Emergency Provider [phone] Wesley Villafuerte PA-C Emergency Provider Jori Hearn DO Admit Provider Jori Hearn DO Attending Provider Priscilla Lang MD Attending Provider [phone] Lit Clark DO Other Provider Keita DO, Sandra A Primary Care Provider Keita DO, Sandra A Attending Provider Keita DO, Sandra A Primary Care Provider Roland Faust MD Attending Provider Angelique Russell APRN Other Provider Nataliya Jane APRN Attending Provider Oz Kincaid MD Referring Provider Keita DO, Sandra A Primary Care Provider Rl Villavicencio DO Emergency Provider Wesley Villafuerte PA-C Emergency Provider [phone] Jori Hearn DO Admit Provider Priscilla Lang [...] Care Provider Manjit Gleason MD Attending Provider [phone] Keita DO, Sandra A Primary Care Provider Keita DO, Sandra Primary Care Provider Keiat DO, Sandra Primary Care Provider Monico VARGAS, Andrius Doss Attending Unavailable Monico VARGAS, Andri Vytyanet Attending Unavailable Keita DO, Sandra A Primary Care Provider Angelique Russell APRN Attending Provider Keita DO, Sandra A Attending Provider Edgar Eden DO Attending Provider Rosibel VARGAS, Manjit Other Provider Samm Medina MD Attending Provider Keita DO, Sandra A Referring Provider NO FAMILY, PHYSICIAN Primary Care Provider Daniella Fritz DPM, Karl Attending Provider Shantel Norton APRN Primary Care Provider AshleyacheShantel flores APRN Attending Provider Ashleyachesandra LEAD JAVA PROGRAMMER-REGULATORY SUBMISSIONS SPECIALIST, Shantel A Primary Care Pro vider TRABOULJOANNE, MOURHAF Attending Unavailable TRABOULSSI, MOURHAF Referring Unavailable ROHRBACHER, SHANTEL A Primary Care Unavailab le TRABOULSSI, MOURHAF Attending Unavailable TRABOULSSI, MOURHAF Referring Unavailable KEITA, SANDRA A Primary Care Unavailable TRABOULSSI, MOURHAF Attending Unavailable JONAS CH Referring Unavailable KEITA, SANDRA A Primary Care Unavailable Samm Medina MD Attending Provider Samm Medina MD Other Provider Angelique Russell APRN Attending Provider Keita, Sandra A Primary Care Unavailable Trya Nava Admitting Unavailabl e Tray Nava Attending [...] Unavailable Keita, Sandra A Primary Care Unavailable DemboskeNataliya Admitting Unavail able Nataliya Jane Attending Unavail able Rohrbacher Shantel Attending Unavailable Rohrbacher, Shantel Admitting Unavailable Rohrbacher, Shantel Primary Care Unavailable Samm Medina Admitting Unavailable Samm Medina Attending Unavailable Ellisrbacher, Shantel Primary Care Unavailable Karl Fritz Admitting [...] Unavailable Keita DO, Sandra Primary Care Provider OZ KINCAID Attending Unavailable [...] IRWIN Attending Unavailable LINWOOD IRWIN Attending Unavailable ZACK CORDOBA Attending Unavailab JONAS Bryan Primary Care Unavailab JONAS Bryan Primary Care Unavailab le Allergies Allergy ClassificationReported Allergen(s)Allergy TypeDate of OnsetReaction(s) Facility (20 sources)Sulfamethoxazole; Translations: [sulfamethoxazole]Drug Allergy 00-28[facility]9173[facility] ([facility] sources)Sulfonamides (Antibiotic); Translations: [SULFA (SULFONAMIDE ANTIBIOTICS)]Allergy to bspqnorva49-27-3227YR intolerance, Unknown, [facility] ([facility])Sulfonamides (Antibiotic)Drug Loeneaf38-48-8321WQ intolerance, UnknownUniversity [facility] ([facility] sources)pioglitazone; Translations: [pioglitazone]Drug Drrqdxb40-45-3832tgf edemaProvidence Hospital Medications Current Medications MedicationDrug Class(es)DatesSig (Normalized)Sig (Original)3 ML semaglutide 1.34 MG/ML Pen Injector [Ozempic] (20 sources)Start: 85-66-4506dzxbsw 0.5 mg by subcutaneous injection every week Ozempic (1 MG/DOSE) 4 MG/3ML 1mg Subcutaneous once weekly for 28 days Stop ozempic 0.5mg dose Feb, Activeinject 1 mg by subcutaneous injection every weekOzempic (1 MG/DOSE) 4 MG/3ML 1mg Subcutaneous once weekly for 28 days Activeapixaban 5 mg oral tablet (20 sources)Factor Xa InhibitorStart: 07-08-2024 End: 51-76-9072ogmi 1 tablet by mouth twice dailyStart: 09-14-2023 End: 63-61-2924tjum 1 tablet by mouth twice dailyApixaban (Eliquis) 5 mg tablet Discontinued 5 MG PO Twice daily 180 December 03, 2023 1:05pm July 08, 2024 11:49amaspirin 81 mg delayed release oral tablet (20 sources)Platelet Aggregation Inhibitor, Nonsteroidal Anti-inflammatory Drug Start: 55-23-8794ynfm 1 tablet by mouth once dailytake 1 tablet by mouth once dailyAspir-Low 81 MG 1 tablet Orally Once a day Activecarvedilol 12.5 mg oral tablet (20 sources)alpha-Adrenergic Debbie, beta-Adrenergic BlockerStart: 03-09-2024 End: 26-01-9863cjrl 1 tablet by mouth in the morningcarvedilol (Coreg) 12.5 MG tablet Take 12.5 mg by mouth in the morning and 12.5 mg in the evening. Take with meals. 03/09/2024 03/09/2025 ActiveContinuous Blood Gluc Sensor (FreeStyle Brent 14 Day Sensor) misc (20 sources)Start: 09-65-5531Ymwthsafzq Blood Gluc Sensor (FreeStyle Brent 14 Day Sensor) [facility] apply 1 SENSOR as directed every 14 days use with DEVICE to MONIT... (REFER TO PRESCRIPTION NOTES). 12/21/2022 Activedocusate sodium 100 mg oral capsule (20 sources)Start: 27-59-7913joxc 1 capsule by mouth in the morningDocusate Sodium (DSS) 100 MG capsule Take 100 mg by mouth in the morning and 100 mg in the evening.06/12/2023 ActiveStart: 02-09-2021 End: 55-88-6121uanz 1 capsule by mouth three times dailyDocusate [...] mg oral tablet (20 sources)Start: 02-25-2024 End: 65-42-2775ltnshtfvz (Aricept) 10 MG tablet Indications: Cognitive decline 2 tabs QAM 60 tablet 5 07/21/2024 Activetake 1 tablet by mouth twice daily donepezil (Aricept) 10 mg tablet Take 1 tablet (10 mg) by mouth 2 times a day. ActiveEasy Touch Lancing Device - (4 sources)Easy Touch Lancing Device - as directed Activeempagliflozin 25 mg oral tablet (20 sources)Sodium-Glucose Cotransporter 2 InhibitorStart: 02-09-2021 End: 92-64-2645dbpd 1 tablet by mouth once [id number] 0.3 ml EPINEPHrine 1 mg/ml auto-injector (5 sources)alpha-Adrenergic Agonist, beta-Adrenergic Agonist, Catecholamine Start: 22-86-6849Muenu Glucose Sensor (Freestyle Brent 14 Day Sensor) kit (20 sources)Start: 11-26-1710Wppro Glucose Sensor (Freestyle Brent 14 Day Sensor) kit Active 0 .ROUTE .MEDSUPPLY December 29, 2024 7:04am As directed Change every 14 daysStart: 01-10-2024 End: 15-20-8354Dvviu Glucose Sensor (Freestyle Brent 14 Day Sensor) kit Discontinued 0 .ROUTE .MEDSUPPLY 2 January 10, 2024 12:00am December 29, 2024 7:04am As directed Change every 14 daysStart: 32-24-7341Potjs Glucose Sensor (Freestyle Brent 14 Day Sensor) kit Active 0 .ROUTE .MEDSUPPLY 2 January 09, 2024 11:00pm As directed Change every 14 daysStart: 01-10-2024 Flash Glucose Sensor (Freestyle Brent 14 Day Sensor) kit Active 0 .ROUTE .MEDSUPPLY 2 January 10, 2024 12:00am As directed Change every 14 daysStart: 07-22-2023 End: 46-74-3189Vzpzm Glucose Sensor (Freestyle Brent 14 Day Sensor) kit Discontinued 0 .ROUTE .MEDSUPPLY July 22, 2023 12:00am April 28, 2024 12:40pm As directed Change every 14 daysStart: 07-22-2023 End: 83-86-3508Ancnj Glucose Sensor (Freestyle Brent 14 Day Sensor) kit Discontinued 0 .ROUTE .MEDSUPPLY July 21, 2023 11:00pm April 28, 2024 11:40am As directed Change every 14 daysStart: 09-07-4054Fhxaw Glucose Sensor (Freestyle Brent 14 Day Sensor) kit Active 0 .ROUTE .MEDSUPPLY 2 July 21 12:00am As directed Change every 14 daysfolic acid 1 mg oral tablet (20 sources)Start: 87-13-7797vujs 1 tablet by mouth once dailyStart: 02-09-2021 End: 72-47-2792yzkh 1 tablet by mouth once dailyfolic acid [...] oral tablet (19 sources)Loop DiureticStart: 05-07-2024 End: 06-62-5609dkjh 1 tablet by mouth every other dayfurosemide (Lasix) 20 mg tablet Indications: Shortness of breath , Edema, unspecified type Take 1 tablet (20 mg) by mouth every other day. 45 tablet 3 05/07/2024 05/07/2025 ActiveStart: .5 ml insulin glargine 300 unt/ml pen injector (20 sources)Insulin AnalogStart: 01-05-2025 End: 22-01-8016zjnxgw 23 [IU] by subcutaneous injection once daily in the morningStart: 04-28-2024 End: 11-27-4949zxrlbp 22 [IU] by subcutaneous injection once daily in the morningInsulin Glargine U-300 Conc (Toujeo Solostar U-300 Insulin) 300 unit/mL (1.5 mL) insulin pen Discontinued 22 UNIT SUBCUT Every morning January 05, 2025 1:41pm January 05, 2025 2:45pmStart: 06-12-2023 End: 19-19-2258eycbvc 20 [IU] by subcutaneous injection once dailyInsulin Glargine U-300 Conc (Toujeo Solostar U-300 Insulin) 300 unit/mL (1.5 mL) insulin pen Discontinued 20 UNIT SUBCUT Daily November 14, 2023 4:09pm April 28, 2024 1:59pmStart: 48-26-6525Dqochm SoloStar 300 UNIT/ML injection inject 20 units subcutaneously as directed 12/12/2022 ActiveStart: 06-76-0034dtyxqfr glargine (Toujeo Solostar- 1 unit dial) 300 unit/mL (1.5 mL) injection 20 Units. 12/12/2022ctiveStart: 10-10-2022 End: 48-78-3329Uoxcfic Glargine U-300 Conc (Toujeo Solostar U-300 Insulin) 300 unit/mL (1.5 mL) insulin pen Discontinued UNIT SUBCUT October 10, 2022 12:00am June 12, 2023 9:13amStart: 33-06-3673jnmexc 20 [IU] by subcutaneous injection once dailyToujeo SoloStar 300 UNIT/ML 20 units once daily Subcutaneous as directed for 90 days (titrate up to30 units/day) Dec, ActiveInsulin Lispro 100 unit/mL insulin pen (20 sources)Start: 74-50-1980Xmwnbaa Lispro 100 unit/mL insulin pen Active 0 SUBCUT Before meals and at bedtime August 20, 2024 12:03pm subcutaneously before meals and at bedtime; 1:40 corrective scale (expect up to 20 units/day) Start: 12-23-2023 End: 19-67-7639Qrrjvti Lispro 100 unit/mL insulin pen Discontinued 0 SUBCUT Before meals and at bedtime December 23, 2023 4:11pm August 20, 2024 12:04pm subcutaneously before meals and at bedtime; 1:50 corrective scale (expect up to 20 units/day)Start: 25-79-3562Pvbheui Lispro 100 unit/mL insulin pen Active 0 SUBCUT Before meals and at bedtime December 23, 2023 4:11pm subcutaneously before meals and at bedtime; 1:50 corrective scale (expect up to 20 units/day) Start: 21-39-8043Oymnpqz Lispro 100 unit/mL insulin pen Active 0 SUBCUT Before meals and at bedtime December 23, 2023 3:11pm subcutaneously before meals and at bedtime; 1:50 corrective scale (expect up to 20 units/day)Start: 06-12-2023 End: 15-44-1724Oirugyn Lispro 100 unit/mL insulin pen Discontinued 0 SUBCUT Before meals and at bedtime June 12, 2023 9:05am December 23, 2023 4:14pm subcutaneously before meals and at bedtime; 1:50 corrective scale (expect up to 20 units/day)Start: 06-12-2023 End: 08-30-1757Vskfinc Lispro 100 unit/mL insulin pen Discontinued 0 SUBCUT Before meals and at bedtime June 12, 2023 8:05am December 23, 2023 3:14pm subcutaneously before meals and at bedtime; 1:50 corrective scale (expect up to 20 units/day)ketoconazole 20 mg/ml medicated shampoo (2 sources)Azole AntifungalStart: ml ketorolac tromethamine 30 mg/ml cartridge (2 sources)Nonsteroidal Anti-inflammatory Drug, Cyclooxygenase InhibitorStart: 01-03-2024 End: 16-30-7362pcwqrebjv (Toradol) injection 30 mgStart: 01-03-2024 End: 25-02-0624bnqmzg 30 mg by subcutaneous injection once30 mg, Intramuscular, Once, On Sat01/03/24 at 1745, For 1 dose, SubcutaneousL. acidophilus/Bifid. animalis (4 sources)Start: 55-55-4238liuu 1 tablet by mouth once dailyStart: 08-25-2024 take 1 tablet by mouth once dailyL. acidophilus/Bifid. animalis Active 1 TAB PO Daily August 25, 2024 12:00ammagnesium oxide 400 mg oral tablet (20 sources)Start: 01-29-2024 End: 74-37-3765xwkj 1 tablet by mouth twice dailyStart: 43-40-9693ndzj 1 tablet by mouth twice dailyMagnesium Oxide Active 0 .ROUTE .COMPLEX 180 January 29, 2024 10:22am TAKE 1 TABLET BY MOUTH TWICEA DAYStart: 11-18-2023 End: 01-59-1613djdm 1 tablet by mouth in the morningmagnesium oxide (Mag-Ox) 400 (240 Mg) MG tablet Take 400 mg by mouth in the morning and 400 mg before bedtime. 01/02/2024 ActiveStart: 09-14-2023 End: 61-21-9002tehr 1 tablet by mouth once dailyMagnesium Oxide (Magox) 400 mg (241.3 mg magnesium) tablet Discontinued 400 MG PO Daily September 14, 2023 12:00am November 18, 2023 2:05pmmemantine hydrochloride 10 mg oral tablet (20 sources)Z-hkklxx-M-aspartate Receptor AntagonistStart: 74-63-9968lxivxddsy (Namenda) 10 MG tablet Indications: Cognitive decline 1 tab BID 60 tablet 5 07/21/2024 ActiveStart: 04-28-2024 End: 38-08-5293hxqaggbqt (Namenda) 10 MG tablet Indications: Cognitive decline 1 tab BID 60 tablet 5 07/21/2024 ActiveStart: 02-25-2024 End: 58-63-1483tsihwbiqy (Namenda) 10 MG tablet Indications: Cognitive decline 1 tab every day x3-5 days then BID 60 tablet 3 02/25/2024 07/21/2024 Discontinued (Reorder)metFORMIN hydrochloride 500 mg oral tablet (20 sources)BiguanideStart: 08-26-2023 End: 04-80-3580mxry 1 tablet by mouth twice daily at mealtimeMetformin 500 mg tablet Discontinued 0 .ROUTE .COMPLEX 180 August 20, 2024 12:01pm Aurea 9th, 2025 2:46pm take 1 tablet by mouth twice a day with mealsStart: 02-09-2021 End: 39-90-1250mqbKKBUCS (Glucophage) 500 MG tablet Take 500 mg by mouth 08/26/2023 ActiveMiscellaneous Medical Supply (20 sources)Start: 63-23-1153Ouyrfsjocesva Medical Supply Active 0 .Route 1 November 26, 2023 2:24pm Hospital BedStart: 11-26-2023 End: 56-92-6568Jphbvijtqopny Medical Supply Discontinued 0 .Route 1 November 26, 2023 2:22pm November 26, 2023 2:25pm As directedStart: 2023 End: 66-14-4041Fmhiuhjqefzjk Medical Supply Discontinued 0 .Route 1 2023 2:20pm November 26, 2023 2:23pm As directedStart: 09-30-2023 End: 32-69-9276Ppvysfcrnmriu Medical Supply Discontinued 0 .Route 1 September 30, 2023 8:33am 2023 2:21pm As directedStart: 43-39-8096Ukyzrjljqfycc Medical Supply Active 0 .Route 1 September 30, 2023 8:33am As directedStart: 09-17-2023 End: 12-59-5694Cpqzvehfnxkzu Medical Supply Discontinued 0 .Route 1 September 17, 2023 12:00am September 30, 2023 8:33am As directedStart: 04-35-8290Vsqialsoodqhj Medical Supply Active 0 .Route 1 September 17, 2023 12:00am As directedMultivitamin preparation (20 sources)Start: 56-14-2676xpac 1 tablet by mouth once dailyMultivitamin Active 1 TAB PO Daily June 12, 2023 9:10amStart: 58-86-7647kcqc 1 tablet by mouth once dailyMultivitamin Active 1 TAB PO Daily June 12, 2023 8:10am Start: 02-09-2021 End: 01-45-8918ozby 1 tablet by mouth twice dailyMultivitamin Discontinued 1 TAB PO Twice daily February 09, 2021 12:00am June 12, 2023 9:13amStart: 02-09-2021 End: 12-39-6822upad 1 tablet by mouth twice dailyMultivitamin Discontinued 1 TAB PO Twice daily February 08, 2021 11:00pm June 12, 2023 8:13amStart: 79-01-7899qwsn 1 tablet by mouth twice dailyMultivitamin Active 1 TAB PO Twice daily February 08, 2021 11:00pmStart: 53-31-6391nozs 1 tablet by mouth twice dailyMultivitamin Active 1 TAB PO Twice daily February 09, 2021 12:00amtake 1 tablet by mouth once dailyMultivitamin - 1 tablet Orally Once a day Active Multivitamin tablet (20 sources)Start: 16-55-0034rshd 1 tablet by mouth once dailyMultivitamin tablet Active 1 TAB PO Daily June 12, 2023 9:10am Complies with drug therapyStart: 55-98-2700xkdn 1 tablet by mouth once dailyStart: 39-20-7413pucg 1 tablet by mouth once dailyMultivitamin tablet Active 1 TAB PO Daily June 12, 2023 9:10amStart: 54-41-6932qwzr 1 tablet by mouth once dailyMultivitamin tablet Active 1 TAB PO Daily June 12, 2023 8:10amnortriptyline 25 mg oral capsule (20 sources)Tricyclic AntidepressantStart: 02-25-2024 End: 24-40-3636qbqt 1 capsule by mouth at bedtimenortriptyline (Pamelor) 25 MG capsule Indications: Neurogenic pain Take 1 capsule (25 mg) by mouth at bedtime 30 capsule 5 07/21/2024 ActiveStart: 06-18-2023 End: 75-17-4186dlxn 100 mg by mouth once dailyNortriptyline Discontinued 100 MG PO Daily 180 90 October 16, 2023 7:37am November 18, 2023 2:05pmStart: 01-04-2023 End: 69-74-5912mgix 1 capsule by mouth once dailyNortriptyline 50 mg capsule Discontinued 50 MG PO Daily 90 90 November 18, 2023 2:01pm February 03, 2024 12:05pmStart: 01-04-2023 End: 52-30-8363tjyc 2 capsules by mouth once daily at bedtimenortriptyline (Pamelor) 50 mg capsule Take 2 capsules (100 mg) by mouth once daily at bedtime. 01/04/2023 12/16/2023 Discontinued (Therapy completed)Start: 02-09-2021 End: 78-51-0868dwtu 1 capsule by mouth twice dailyNortriptyline 50 mg capsule Discontinued 50 MG PO Twice daily June 12, 2023 9:07am June 18, 2023 8:10pmtake 1 capsule by mouth every twenty-four hoursNortriptyline HCl 50 MG 1 capsules Orally Once a day Activeomeprazole 20 mg delayed release oral capsule (20 sources)Proton Pump InhibitorStart: 90-63-7817amaw 1 capsule by mouth once dailyStart: 07-01-2023 End: 59-88-8845zzie 1 capsule by mouth once dailyOmeprazole 20 mg capsule,delayed release(DR/EC) Discontinued 0 .ROUTE .COMPLEX 90 January 06, 2024 12:36pm September 10, 2024 12:44pm take 1 capsule by mouth once dailyStart: 01-02-2023 End: 01-45-0574lpollbbsty (PriLOSEC) [address] capsule 01/02/2023 ActiveStart: 02-09-2021 End: 32-31-2068yeqq 1 tablet by mouth once dailyOmeprazole 20 [...] MG/DOSE, 4 MG/3ML solution pen-injector (20 sources)Start: 01-43-2988xowujl 1 mg by subcutaneous injection every week Ozempic, 1 MG/DOSE, 4 MG/3ML solution pen-injector Administer 1mg subcutaneously once weekly 12/10/2022 Activepregabalin 300 mg oral capsule (20 sources)Start: 10-03-8439mvfh 2 capsules by mouth once daily at bedtime Start: 07-10-2024 End: 14-00-0959kxgd 1 capsule by mouth twice dailypregabalin (Lyrica) 300 MG capsule Indications: Neurogenic pain TAKE 1 CAPSULE BY MOUTH TWICE A LRX892 capsule 1 03/01/2025 ActiveStart: 01-15-2024 End: 91-17-8311ztgp 1 capsule by mouth once dailyPregabalin 300 mg capsule Discontinued 300 MG PO Daily 90 90 July 03, 2024 1:03pm October 01, 2024 3:16pm Start: 65-73-3459Xpkyidqdud Active MG PO January 15, 2024 12:00amStart: 54-86-5505qiyv 1 capsule by mouth twice dailypregabalin (Lyrica) 300 MG capsule Indications: Neurogenic pain TAKE 1 CAPSULE BY MOUTH TWICE A DAY60 capsule 3 01/07/2024 ActiveStart: 11-18-2023 End: 14-08-9974ztqx 1 capsule by mouth twice dailyPregabalin (Lyrica) 150 mg capsule Discontinued 150 MG PO Twice daily November 18, 2023 12:00am January 15, 2024 3:40pmSemaglutide (6 sources)Start: 87-11-0221wheqxw 2 mg by subcutaneous injection every week Semaglutide (Ozempic) 2 mg/dose (8 mg/3 mL) pen injector Active 2 MG SUBCUT every week April 28, 2024 1:00am Complies with drug therapyStart: 15-27-5520jymcmx 2 mg by subcutaneous injection every weeksemaglutide (Ozempic) 1 mg/dose (4 mg/3 mL) pen injector (6 sources)Start: 62-70-2218gdkhqtsqkjp (Ozempic) 1 mg/dose (4 mg/3 mL) pen injector 2 mg 1 (one) time per week. 12/10/2022 ActiveStart: 52-03-1175toquvw 1 mg by subcutaneous injection every weeksemaglutide (Ozempic) 1 mg/dose (4 mg/3 mL) pen injector Administer 1mg subcutaneously once weekly 12/10/2022 Active Semaglutide (Ozempic) 2 mg/dose (8 mg/3 mL) pen injector (14 sources)Start: 59-39-6728scomjh 2 mg by subcutaneous injection every week Semaglutide (Ozempic) 2 mg/dose (8 mg/3 mL) pen injector Active 2 MG SUBCUT every week April 28, 2024 1:00amStart: 19-43-0176vjhgah 2 mg by subcutaneous injection every weekSemaglutide (Ozempic) 2 mg/dose (8 mg/3 mL) pen injector Active 2 MG SUBCUT every week April 28, 2024 12:00amsertraline 50 mg oral tablet (17 sources)Serotonin Reuptake InhibitorStart: 89-98-6410kfqr 1 tablet by mouth once dailysertraline (Zoloft) 50 MG tablet Take 50 mg by mouth Daily 01/12/2025 ActiveStart: 12-15-2024 End: 03-44-4982ekys 1 tablet by mouth once dailySertraline 25 mg tablet Discontinued 25 MG PO Daily January 11, 2025 11:49am January 12, 2025 2:36pmsimvastatin 20 mg oral tablet (20 sources)HMG-CoA Reductase InhibitorStart: 04-30-2024 End: 04-68-0068ohat 2 tablets by mouth once dailyStart: 24-34-1226qllq 1 tablet by mouth at bedtimesimvastatin (Zocor) 40 MG tablet Take 40 mg by mouth at bedtime 12/04/2022 ActiveStart: 02-09-2021 End: 48-00-1399prdu 1 tablet by mouth once dailySimvastatin 20 mg Tablet Discontinued 20 MG PO Daily February 09, 2021 12:00am April 30, 2024 11:27am traMADol hydrochloride 50 mg oral tablet (3 sources)Opioid AgonistStart: 39-07-1390ugzi 1 tablet by mouth twice daily as neededvarenicline 1 mg oral tablet (20 sources)Partial Cholinergic Nicotinic AgonistStart: 25-91-5690snpe 1 tablet by mouth twice dailyVarenicline Tartrate 1 MG 1 tablet after eating with a full glass of water Orally Twice a day for 30 days To fill after completing starter pack Nov, ActiveStart: 40-93-1092Vfixecahqeq Tartrate (Starter) 0.5 MG X 11 & 1 MG X 42 as directed Orally as directed for 30 days Nov, Active Start: 86-67-7379gdrs 1 mg by mouth twice dailyVarenicline Tartrate 1 MG as directed Orally Twice a day for 30 day(s) To start after completing starter pack Mar, ActiveStart: 76-08-9379Bkxdtxdeehh Tartrate 0.5 MG 1 tablet with food and water daily days 1-3 then increase to twice daily on days 4-7 Orally Once a day for 7 day(s) Sep, Not-TakingStart: 22-72-6107wsai 1 tablet by mouth twice dailyVarenicline Tartrate 1 MG 1 tablet after eating with a full glass of water Orally Twice a day for 30 days Sep, Not-Takingvitamin b12 2.5 mg oral tablet (20 sources)Vitamin I17Tmzql: 92-79-8999ybxvedjfofvsje (Vitamin B-12) 2500 MCG tablet 11/14/2023 ActiveStart: 14-95-5811rwtb 1 capsule by mouth once daily Start: 02-09-2021 End: 81-09-3486ybii 1 tablet by mouth once dailyCyanocobalamin (Vitamin B-12) (Vitamin B-12) 1,000 mcg Tablet Discontinued 1000 MCG PO Daily February 09, 2021 12:00am December 17, 2021 5:58amRA Vitamin B-12 Not-TakingRA Vitamin B-12 Active Completed/Discontinued Medications MedicationDrug Class(es)DatesSig (Normalized)Sig (Original)acetaminophen 325 mg oral tablet (20 sources)Start: 12-13-2021 End: 81-23-0985odwy 1-3 tablets by mouth every six hours as needed for pain Acetaminophen 325 mg Tablet Discontinued 650 MG PO Every 6 hours as needed for Pain Scale 1 - 3 or fever December 13, 2021 12:00am December 17, 2021 5:59am Start: 12-13-2021 End: 50-59-2536aplr 650 mg by mouth every six hoursAcetaminophen Discontinued 650 MG PO Every 6 hours December 13, 2021 12:00am December 17, 2021 5:59am Admelog (9 sources)Admelog Not-TakingAdmelog Activeamiodarone hydrochloride 200 mg oral tablet (20 sources)AntiarrhythmicStart: 10-07-2023 End: 45-30-6917conj 1 tablet by mouth twice dailyAmiodarone 200 mg tablet Discontinued 200 MG PO Twice daily November 04, 2023 12:00am April 14, 2024 10:39amamoxicillin 875 mg / clavulanate 125 mg oral tablet (20 sources)Penicillin-class AntibacterialStart: 12-15-2024 End: 32-01-7369daif 1 tablet by mouth twice dailyAmoxicillin-Pot Clavulanate 875-125 mg tablet Discontinued 1 TAB PO Twice daily December 15, 2024 12:00am January 05, 2025 1:40pmStart: 01-15-2024 End: 63-12-0013Yggeldvmnrd-Pot Clavulanate 875-125 mg tablet Discontinued TAB PO January 15, 2024 12:00am April 14, 2024 10:39am24 hr buPROPion hydrochloride 150 mg extended release oral tablet (20 sources)AminoketoneStart: 09-16-2024 End: 36-59-4641goen 1 tablet by mouth once daily in the morningBupropion Hcl 150 mg tablet extended release 24 hr Discontinued 0 .ROUTE .COMPLEX September 160:37am January 05, 2025 1:40pm TAKE 1 TABLET BY MOUTH EVERY MORNING Start: 49-46-6541rnks 1 tablet by mouth once daily in the morningBupropion Hcl 150 mg tablet extended release 24 hr Active 0 .ROUTE .COMPLEX September 16, 2024 10:37am TAKE 1 TABLET BY MOUTH EVERY MORNINGStart: 08-25-2024 End: 80-10-4623kdft 1 tablet by mouth once daily in the morningBupropion Hcl 150 mg tablet extended release 24 hr Discontinued 150 MG PO Every morning August 25, 2024 12:00am September 16, 2024 10:38amStart: 81-35-0204etub 1 tablet by mouth every twenty-four hoursbuPROPion HCl ER (XL) 300 MG 1 tablet in the morning Orally Once a day for 90 day(s) Jul, ActivebuPROPion HCl ER (XL) 150 MG take 1 tablet by mouth every morning for 3 days for 3 DCed Activecefuroxime 500 mg oral tablet (20 sources)Cephalosporin AntibacterialStart: 04-30-2024 End: 75-70-4396gpfi 1 tablet by mouth twice dailyCefuroxime Axetil 500 mg tablet Discontinued 500 MG PO Twice daily 14 7 Keyla 2nd, 2025 1:00am August 20, 2024 10:10amStart: 12-13-2021 End: 54-46-6763avgq 1 tablet by mouth twice dailyCefuroxime Axetil 500 mg tablet Discontinued 500 MG PO Twice daily 6 December 13, 2021 12:00am October 10, 2022 12:16pmStart: 47-85-2972epxn 500 mg by mouth twice dailyCefuroxime Axetil Active 500 MG PO Twice daily 6 December 13, 2021 12:00amStart: 35-73-6519lqpb 500 mg by mouth twice dailyCefuroxime Axetil Active 500 MG PO Twice daily 6 December 13, 2021 12:00amcephalexin 500 mg oral capsule (13 sources)Cephalosporin AntibacterialStart: 07-10-2024 End: 76-82-7578exjz 1 capsule by mouth every eight hoursCephalexin 500 mg capsule Discontinued 500 MG PO Every 8 hours July 10, 2024 12:00am July 22, 2024 11:18amcyclobenzaprine hydrochloride 10 mg oral tablet (20 sources)Muscle RelaxantStart: 05-15-2024 End: 12-83-1302oxgc 1-2 tablets by mouth at bedtimecyclobenzaprine (Flexeril) 10 MG tablet Indications: Cervical paraspinal muscle spasm , Lumbar paraspinal muscle spasm TAKE 1 TO 2 TABLETS BY MOUTH AT BEDTIME 60 tablet 3 05/15/2024 07/21/2024 DiscontinuedStart: 84-29-2615Hkotnpofzoekxqr Active MG PO January 15, 2024 12:00amStart: 01-07-2024 End: 53-69-3552Jgnyzpgikeydtth 10 mg tablet Discontinued 10 MG PO As Directed as needed for muscle spasm 2023 12:00am April 30, 2024 11:27am dapagliflozin 10 mg oral tablet (4 sources)Sodium-Glucose Cotransporter 2 InhibitorStart: 60-77-4339zhxr 1 tablet by mouth every twenty-four hoursFarxiga 10 MG 1 tablet Orally Once a day for 30 day(s) Apr, Not-Takingdoxycycline hyclate 100 mg oral tablet (20 sources)Tetracycline-class DrugStart: 12-15-2024 End: 67-43-8364ytvt 1 tablet by mouth twice dailyDoxycycline Hyclate 100 mg tablet Discontinued 100 MG PO Twice daily December 15, 2024 12:00am January 05, 2025 1:40pmStart: 11-16-2024 End: 80-59-2884yrke 1 tablet by mouth in the morningdoxycycline [...] 20 tablet 11/16/2024 11/26/2024 ActiveStart: 02-06-2022 End: 64-07-4773zhud 1 capsule by mouth once dailydoxycycline (Vibramycin) 100 MG capsule take 1 capsule by mouth once daily for 10 days 02/06/2022 01/07/2024 Discontinuedflash glucose sensor (FreeStyle Brent 14 Day Sensor) (20 sources)Start: 06-12-2023 End: 93-15-8320kfvxq glucose sensor (FreeStyle Brent 14 Day Sensor) Discontinued .Route June 12, 2023 12:00am July 22, 2023 6:32amStart: 06-12-2023 End: 34-59-2224mafgg glucose sensor (FreeStyle Brent 14 Day Sensor) Discontinued .Route June 12, 2023 12:00am November 09, 2023 9:09pmStart: 06-12-2023 End: 90-12-7981gvtjp glucose sensor (FreeStyle Brent 14 Day Sensor) Discontinued .Route June 12, 2023 1:00amJu2023 10:09pmStart: 06-12-2023 End: 90-59-3115amxfc glucose sensor (FreeStyle Brent 14 Day Sensor) Discontinued .Route June 12, 2023 1:00amMarc 2023 7:32amStart: 74-88-0848teyus glucose sensor (FreeStyle Brent 14 Day Sensor) Active .Route June 12, 2023 1:00amStart: 51-13-3606cabfk glucose sensor (FreeStyle Brent 14 Day Sensor) Active .Route June 12, 2023 12:00amStart: 79-29-2960tkwqd glucose sensor (FreeStyle Brent 14 Day Sensor) Active .ROUTE June 12, 2023 12:00am Handicap placards as directed (13 sources)Start: 40-35-7787Nrfdtcaa placards as directed as directed as directed as directed To 5 years after issue date Nov, Active3 ml insulin lispro 100 unt/ml pen injector (20 sources)Insulin AnalogStart: 92-13-8100Evdhcnt Lispro Active 0 SUBCUT Before meals and at bedtime December 23, 2023 4:11pm subcutaneously before meals and at bedtime; 1:50 corrective scale (expect up to 20 units/day)Start: 06-12-2023 End: 69-10-8597Itphdyw Lispro Discontinued 0 SUBCUT Before meals and at bedtime June 12, 2023 9:05am December 23, 2023 4:14pm subcutaneously before meals and at bedtime; 1:50 corrective scale (expect up to 20units/day)Start: 19-41-3177Txhaggh Lispro Active 0 SUBCUT Before meals and at bedtime June 12, 2023 9:05am subcutaneously before meals and at bedtime; 1:50 corrective scale (expect up to 20 units/day)Start: 56-11-5151Hapgcld Lispro Active 0 SUBCUT Before meals and at bedtime June 12, 2023 8:05am subcutaneously before meals and at bedtime; 1:50 corrective scale (expect up to 20 units/day)Start: 10-10-2022 End: 38-68-1412jpgqaw 1 dose by subcutaneous injection at bedtimeInsulin Lispro Discontinued sliding scale dose SUBCUT Before meals and at bedtime October 10, 2022 12:00am June 12, 2023 9:13amStart: 10-10-2022 End: 66-48-9546fhkpgm 1 dose by subcutaneous injection at bedtimeInsulin Lispro Discontinued sliding scale dose SUBCUT Before meals and at bedtime October 09, 2022 11:00pm June 12, 2023 8:13amStart: 39-05-2167tgtuhf 1 dose by subcutaneous injection at bedtimeInsulin Lispro Active sliding scale dose SUBCUT Before meals and at bedtime October 09, 2022 11:00pmStart: 02-09-2021 End: 12-57-5990Qnqbddo Lispro 100 unit/mL insulin pen Discontinued 0 SUBCUT Before meals and at bedtime June 12, 2023 9:05am December 23, 2023 4:14pm subcutaneously before meals and at bedtime; 1:50 corrective scale (expect up to 20 units/day)HumaLOG KwikPen 100 UNIT/ML 1:50 corrective scale Subcutaneous ac tid Not-TakingInsulin Lispro (Admelog Solostar U-100 Insulin) 100 unit/mL Insulin Pen (20 sources)Start: 02-09-2021 End: 46-24-8844Vbhmkmt Lispro (Admelog Solostar U-100 Insulin) 100 unit/mL Insulin Pen Discontinued 1 sliding scale dose SUBCUT Use as Directed February 09, 2021 12:00am October 10, 2022 12:17pmStart: 02-09-2021 End: 02-11-4482Lslndjc Lispro (Admelog Solostar U-100 Insulin) 100 unit/mL Insulin Pen Discontinued 1 sliding scale dose SUBCUT Use as Directed February 08, 2021 11:00pm October 10, 2022 11:17amInsulin Lispro 100 unit/mL Insulin Pen (14 sources)Start: 10-10-2022 End: 29-52-4481rkgcpv 1 dose by subcutaneous injection at bedtimeInsulin Lispro 100 unit/mL Insulin Pen Discontinued sliding scale dose SUBCUT Before meals and at bedtime October 10, 2022 12:00am June 12, 2023 9:13amStart: 10-10-2022 End: 98-10-9869eerkvp 1 dose by subcutaneous injection at bedtimeInsulin Lispro 100 unit/mL Insulin Pen Discontinued sliding scale dose SUBCUT Before meals and at bedtime October 09, 2022 11:00pm June 12, 2023 8:13amL. acidophilus/Bifid. animalis (Daily Probiotic) (6 sources)Start: 08-25-2024 End: 95-42-5236dkrx 1 tablet by mouth once dailyL. acidophilus/Bifid. animalis (Daily Probiotic) Discontinued 1 TAB PO Daily August 25, 2024 12:00am December 15, 2024 1:58pmStart: 08-25-2024L. acidophilus/Bifid. animalis (Daily Probiotic) Active PO August 25, 2024 12:00amlidocaine 0.05 mg/mg topical ointment (20 sources)Antiarrhythmic, Amide Local AnestheticStart: 04-28-2024 End: 15-50-8571Xsmwuedcp 5 % ointment Discontinued 1 APPLIC TOPICAL Daily as needed for pain April 28, 2024 1:00am August 20, 2024 10:11amStart: 01-30-2024 End: 01-29-4863qvkasntoz (Xylocaine) 5 % ointment Indications: Ulcer of right foot, limited to breakdown of skin (CMS/HCC) Apply topically Daily Use as needed over the wound sites with dressing changes. 50 g 2 01/30/2024 07/21/2024 DiscontinuedStart: 01-03-2024 End: 12-07-1116ttyfczoli (Xylocaine) 1 % injection 6 mgStart: 01-03-2024 End: mg (0.6 mL), Injection, Once, On Sat01/03/24 at 1745, For 1 dose, Added to dexamethasone or ketorolac for therapeutic injection.lisinopril 5 mg oral tablet (20 sources)Angiotensin Converting Enzyme InhibitorStart: 09-09-2023 End: 58-44-3120shsk 1 tablet by mouth once dailyLisinopril 5 mg tablet Discontinued 0 .ROUTE .COMPLEX 90 September 09, 2023 9:36am November 05, 2023 12:26pm take 1 tablet by mouth once dailyStart: 06-12-2023 End: 35-81-5321lkaa 2.5 mg by mouth once dailyLisinopril 10 mg tablet Discontinued 2.5 MG PO Daily June 12, 2023 9:09am June 12, 2023 4:42pmStart: 06-12-2023 End: 66-96-6190cefi 2.5 mg by mouth once dailyLisinopril Discontinued 2.5 MG PO Daily June 12, 2023 9:09am June 12, 2023 4:42pmStart: 06-12-2023 End: 07-73-6352egfr 1 tablet by mouth once dailyLisinopril 2.5 mg tablet Discontinued 2.5 MG PO Daily June 12, 2023 1:00am June 19, 2023 6:17pmStart: 12-04-2022 End: 02-64-2493aqda 1 tablet by mouth once dailyLisinopril 5 mg tablet Discontinued 5 MG PO Daily September 09, 2023 12:00am September 09, 2023 9:36amStart: 02-09-2021 End: 14-91-0410ejfv 5 mg by mouth once dailyLisinopril 10 mg Tablet Discontinued 5 MG PO Daily February 09, 2021 12:00am June 12, 2023 9:13amStart: 02-09-2021 End: 01-32-0671gnvb 5 mg by mouth once dailyLisinopril Discontinued 5 MG PO Daily February 09, 2021 12:00am June 12, 2023 9:13amStart: 68-23-6706hdrr 10 mg by mouth once dailyLisinopril Active 10 MG PO Daily February 09, 2021 12:00amtake 1 tablet by mouth every twenty-four hoursLisinopril 40 MG 1 tablet Orally Once a day Activeloratadine 10 mg oral tablet (20 sources)Start: 02-09-2021 End: 73-10-3562ocif 1 tablet by mouth once dailyLoratadine 10 mg Tablet Discontinued 10 MG PO Daily February 09, 2021 12:00am October 10, 2022 12:16pm Loratadine PRN ActiveLoratadine prn ActiveLoratadine Activemetoclopramide 10 mg oral tablet (20 sources)Dopamine-2 Receptor AntagonistStart: 06-12-2023 End: 18-03-8693eunh 1 tablet by mouth once daily at bedtimeMetoclopramide Hcl 10 mg tablet Discontinued 10 MG PO Daily at bedtime June 12, 2023 1:00am [facility] 2023 6:17pmStart: 02-09-2021 End: 13-98-6276mdfy 1 tablet by mouth once dailyMetoclopramide Hcl 10 mg Tablet Discontinued 10 MG PO Daily February 09, 2021 12:00am October 10, 2022 12:15pm take 1 tablet by mouth at bedtimeMetoclopramide HCl 10 MG 1 tablet Orally at bedtime Qnajmv60 hr metoprolol succinate 50 mg extended release oral tablet (20 sources)beta-Adrenergic BlockerStart: 10-30-2023 End: 75-91-6158aimn 1 tablet by mouth three times dailyMetoprolol Succinate 50 mg Tablet Extended Release 24 Hr Discontinued 50 MG PO Three times daily November 04, 2023 12:00am April 14, 2024 10:40amStart: 09-14-2023 End: 30-32-8852ywbn 1 tablet by mouth every twenty-four hours in the morning metoprolol succinate XL (Toprol-XL) 50 MG 24 hr tablet Take 50 mg by mouth in the morning and 50 mgin the evening. 09/14/2023 04/07/2024 DiscontinuedStart: 09-14-2023 End: 23-44-3066neuy 1 tablet by mouth once dailyMetoprolol Succinate 50 mg Tablet Extended Release 24 Hr Discontinued 50 MG PO Daily September 14, 2023 12:00am November 04, 2023 1:04pmMiscellaneous Medical Supply misc (20 sources)Start: 11-26-2023 End: 43-21-0032Ggpkurrsedaya [facility] misc Discontinued 0 .Route 1 November 26, 2023 2:24pm April 28, 2024 12:40pm Hospital BedStart: 11-26-2023 End: 61-58-9819Bfebzbqzxhqya Medical Supply misc Discontinued 0 .Route 1 November 26, 2023 1:24pm April 28, 2024 11:40am [facility] BedStart: 11-26-2023 End: 82-23-9925Qloxeiiwkbhjv Medical Supply misc Discontinued 0 .Route 1 November 26, 2023 2:22pm November 26, 2023 2:25pm As directedStart: 11-26-2023 End: 96-80-2760Qljhlbogozuiu Medical Supply misc Discontinued 0 .Route 1 November 26, 2023 1:22pm November 26, 2023 1:25pm As directedStart: 2023 End: 92-23-1353Rdykbwjhiarix [facility] [employer] misc Discontinued 0 .Route 1 2023 2:20pm November 26, 2023 2:23pm As directedStart: 2023 End: 14-26-2322Aoaaenkjxktmj Medical Supply misc Discontinued 0 .Route 1 2023 1:20pm November 26, 2023 1:23pm As directedStart: 09-30-2023 End: 47-60-9038Xhymylhylnlvz Medical Supply misc Discontinued 0 .Route 1 September 30, 2023 8:33am 2023 2:21pm As directedStart: 09-30-2023 End: 52-39-3432Nbwncxtegvmmz Medical Supply misc Discontinued 0 .Route 1 September 30, 2023 7:33am 2023 1:21pm As directedStart: 09-17-2023 End: 02-26-8213Heurksvqroxim [facility] [employer] misc Discontinued 0 .Route 1 September 17, 2023 12:00am September 30, 2023 8:33am As directedStart: 09-17-2023 End: 30-07-2763Gilafzdecnlxy [facility] Supply misc Discontinued 0 .Route 1 September 16, 2023 11:00pm September 30, 2023 7:33am As directedMultivitamin Tablet (20 sources)Start: 02-09-2021 End: 74-46-2814oxpj 1 tablet by mouth twice dailyMultivitamin Tablet Discontinued 1 TAB PO Twice daily February 09, 2021 12:00am June 12, 2023 9:13amStart: 02-09-2021 End: 95-65-4839twfe 1 tablet by mouth twice dailyMultivitamin Tablet Discontinued 1 TAB PO Twice daily February 08, 2021 11:00pm June 12, 2023 8:13am24 hr nicotine 0.875 mg/hr transdermal system (17 sources)Cholinergic Nicotinic AgonistStart: 05-07-2024 End: 54-02-5469wrrsv 1 dose transdermal route every twenty-four hoursNicotine 21 mg/24 hr patch 24 hour Discontinued 1 PATCH TRANSDERML Daily May 07, 2024 1:00am August 20, 2024 10:11ampen needle, diabetic (Sure-Fine Pen [place]) (20 sources)Start: 06-12-2023 End: 00-73-1216gtz needle, diabetic (Sure-Fine Pen [place]) Discontinued .Route June 12, 2023 1:00am January 05, 2025 1:32pmStart: 60-85-5025phw needle, diabetic (Sure-Fine Pen [place]) Active .Route June 12, 2023 1:00amStart: 90-22-4294rsp needle, diabetic (Sure-Fine Pen [place]) Active .Route June 12, 2023 12:00amStart: 01-56-7065svi needle, diabetic (Sure- Fine Pen [place]) Active .ROUTE June 12, 2023 12:00ampioglitazone 15 mg oral tablet (20 sources)Peroxisome Proliferator Receptor alpha Agonist, Peroxisome Proliferator Receptor gamma Agonist, ThiazolidinedioneStart: 02-09-2021 End: 55-26-5361holt 1 tablet by mouth once dailyPioglitazone 15 mg Tablet Discontinued 15 MG PO Daily February 09, 2021 12:00am April 28, 2024 1:57pm0.25 mg, 0.5 mg dose 1.5 ml semaglutide 1.34 mg/ml pen injector (20 sources)Start: 02-09-2021 End: 51-37-4906Jgqmhzfipdd (Ozempic) 0.25 mg or 0.5 mg(2 mg/1.5 mL) Pen Injector Discontinued 1 MG SUBCUT every week February 09, 2021 12:00am April 28, 2024 12:39pm Sundaystart: 19-68-6056Bhesdtddvra (Ozempic) 0.25 mg or 0.5 mg(2 mg/1.5 mL) Pen Injector Active 0.5 MG SUBCUT every week February 09, 2021 12:00am SaturdayOzempic (0.25 or 0.5 MG/DOSE) 2 MG/1.5ML inject 0.5 milligrams subcutaneously every week for 84 ActiveSemaglutide (20 sources)Start: 04-28-2024 End: 92-31-9376cadrit 1 mg by subcutaneous injection every weekSemaglutide (Ozempic) 1 mg/dose (4 mg/3 mL) pen injector Discontinued 1 MG SUBCUT every week April 28, 2024 1:00am April 28, 2024 1:57pmStart: 04-28-2024 End: 83-00-0759polovx 1 mg by subcutaneous injection every weekSemaglutide (Ozempic) 1 mg/dose (4 mg/3 mL) pen injector Discontinued 1 MG SUBCUT every week April 28, 2024 12:00am April 28, 2024 12:57pmtemazepam 30 mg oral capsule (20 sources)BenzodiazepineStart: 10-10-2022 End: 10-78-7497upwv 1 capsule by mouth once dailyTemazepam 30 mg capsule Discontinued 30 MG PO Daily September 17, 2023 1:56pm November 08, 2023 4:43pm Start: 80-19-8103bdzt 1 capsule by mouth every twenty-four hoursTemazepam 30 MG 1 capsule at bedtime as needed Orally Once a day for 30 days Jul, Active Start: 69-05-8447tnxo 1 capsule by mouth every twenty-four hoursTemazepam 30 MG 1 capsule at bedtime as needed Orally Once a day for 30 days Jun, Active Start: 38-79-7338kjny 1 capsule by mouth every twenty-four hoursTemazepam 30 MG 1 capsule at bedtime as needed Orally Once a day for 30 days May, Active Start: 06-64-9875epaq 1 capsule by mouth every twenty-four hoursTemazepam 15 MG 1 capsule at bedtime as needed Orally Once a day for 30 days Jun, Active Start: 28-50-3519zhhg 1 capsule by mouth every twenty-four hoursTemazepam 22.5 MG 1 capsule at bedtime as needed Orally Once a day for 30 days Apr, ActiveStart: 02-09-2021 End: 19-43-3938cnir 1 capsule by mouth once daily at bedtimeTemazepam 30 mg Capsule Discontinued 30 MG PO Daily at bedtime February 09, 2021 12:00am December 17, 2021 6:00amtake 1 capsule by mouth every twenty-four hoursTemazepam 15 MG 1 capsule at bedtime as needed Orally Once a day ActiveVitamin B12 1000 MCG (4 sources)Start: 28-43-7642dktc 1 tablet by mouth once dailyVitamin B12 1000 MCG 1 tablet Orally Once a day for 90 days Jun, Not-TakingStart: 60-84-5125tvjo 1 tablet by mouth once dailyVitamin B12 1000 MCG 1 tablet Orally Once a day for 90 days Jun, Active Problems Active Problems Problem ClassificationProblemDateDocumented DateEpisodic/ChronicAbdominal pain (20 sources)Abdominal pain; Translations: [Unspecified abdominal pain]12-17-2021 EpisodicAcquired foot deformities (2 sources)Deformity of toe; Translations: [Acquired deformities of toe(s), unspecified, right foot]95-51-8329LunlhxxlCblgjjyvfhneky/social admission (20 sources)Dietary counseling and surveillance; Translations: [Tobacco abuse counseling]Onset: 03-27-2021 Resolved: 80-98-6455DyzxlflpSagdbwoq reactions (10 sources)Allergy to honey bee venom; Translations: [Bee allergy status] 97-35-2842OcbervrbGelnauw tract disease (20 sources)Biliary calculus; Translations: [Calculus of gallbladder without cholecystitis without obstruction]90-86-1794FpflqhevDhonvhp dysrhythmias (20 sources)Atrial flutter; Translations: [Unspecified atrial flutter]Onset: 956683-80-7111RaghbbiMonihok dysrhythmias (20 sources)Tachycardia; Translations: [Tachycardia, unspecified]09-12-2023 EpisodicChronic kidney disease (20 sources)Chronic kidney disease stage 2; Translations: [Chronic kidney disease, stage 2 (mild)]55-09-1847VjtqdrsOvsleex ulcer of skin (20 sources)Non-pressure chronic ulcer of other part of right foot limited to breakdown of skin; Translations: [Ulcer of other part of foot]Onset: 11-16-2024 46-91-2453YoggvjsWuij; stupor; and brain damage (9 sources)Daytime somnolence; Translations: [Somnolence]65-79-7631Kgyuurnu Complications of surgical procedures or medical care (11 sources)Complication of ventilation rmxlzit43-73-1222NmoinvakZhhjlruarv heart failure; nonhypertensive (11 sources)Congestive heart failure; Translations: [Heart failure, unspecified] 21-25-5351CixuaqgOldgbtes atherosclerosis and other heart disease (1 source)Coronary atherosclerosis and other heart diseaseOnset: 05-16-2017 Diabetes mellitus with complications (20 sources)Polyneuropathy due to type 2 diabetes mellitus; Translations: [Type 2 diabetes mellitus with diabetic polyneuropathy]Onset: 03-27-2021 Resolved: 72-94-9544ZcrkbnkBysxvwjg mellitus with complications (1 source)Diabetes mellitus with complicationsOnset: 11-67-5429Rnlgnrak mellitus without complication (20 sources)Type 2 diabetes mellitus; Translations: [Type 2 diabetes mellitus without complications]Onset: 520745-06-4160UrkzzoyGftbaawre congenital anomalies (20 sources)Enlargement of tongue; Translations: [Macroglossia]Onset: 10-29-2023 48-09-1662VgrhujrOulpithz of white blood cells (20 sources)Granulocytosis; Translations: [Other elevated white blood cell count]Onset: 938316-57-1986BbkgfjoZphijrxhq of lipid metabolism (20 sources)Hyperlipidemia; Translations: [Hyperlipidemia, unspecified]Onset: 03-27-2021 Resolved: 93-34-7448BhtjjlgCrbkzfakvp disorders (18 sources)Stricture of esophagus; Translations: [Esophageal obstruction] ChronicEsophageal disorders (20 sources)Achalasia of esophagus; Translations: [Achalasia of cardia] 92-51-4650TponzmemEbrkwavhkj disorders (1 source)Esophageal disordersOnset: 89-57-5057Tnhcaecna hypertension (20 sources)Hypertensive disorder; Translations: [Essential (primary) hypertension]Onset: 03-27-2021 Resolved: 05-99-7187JuiceufRkylirbph hypertension (1 source)Essential hypertensionOnset: 25-99-8878Zeeioeq and fatigue (20 sources)Fatigue; Translations: [Chronic fatigue, unspecified]Chronic Miscellaneous mental health disorders (20 sources)Primary insomnia; Translations: [Primary insomnia]ChronicMood disorders (20 sources)Major depressive disorder; Translations: [Major depressive disorder, single episode, unspecified]72-82-7257PmxsquzYhmlrdajhyj chest pain (20 sources)Chest pain; Translations: [Chest pain, unspecified]09-12-2023 EpisodicNutritional deficiencies (20 sources)Vitamin D deficiency; Translations: [Vitamin D deficiency, unspecified]ChronicOpen wounds of extremities (20 sources)Injury of foot; Translations: [Unspecified open wound, unspecified foot, initial encounter]07-41-2568XiqyjxglBktfo acquired deformities (2 sources)Unspecified acquired deformity of right lower leg; Translations: [Unspecified deformity of ankle and foot, acquired]04-59-9222IjblkxroMnrkj aftercare (20 sources)Long-term current use of insulin; Translations: [supervisor intermediates (current) use of insulin]00-38-9722BlxtqtkpKvzrk aftercare (12 sources)supervisor intermediates (current) use of insulin; Translations: [Long-term (current) use of insulin]Onset: 03-27-2021 Resolved: 05-08-8499QcsdjsfzZzriv aftercare (20 sources)Post-discharge follow-up; Translations: [Encounter for follow-up examination after completed treatment for conditions other than malignant neoplasm]45-10-9337GsfdccfeMehlc aftercare (17 sources)Encounter for follow-up examination after completed treatment for conditions other than malignant neoplasm; Translations: [Other follow-up examination]07-34-9710OwgnpnjrWnkya circulatory disease (16 sources)Low blood pressure; Translations: [Hypotension, unspecified] 52-53-4050CgjdcaiuScrkb circulatory disease (5 sources)Hypotension, unspecified; Translations: [Hypotension, unspecified] 66-17-3352FswinntnFjtka connective tissue disease (20 sources)Neurogenic pain; Translations: [Neuralgia and neuritis, unspecified] Onset: 202381-09-7038EegoitanChejv connective tissue disease (4 sources)Pain in left lower limb; Translations: [Pain in left leg]10-06-2024 EpisodicOther connective tissue disease (4 sources)Pain in right lower limb; Translations: [Pain in right leg]10-06-2024 EpisodicOther connective tissue disease (1 source)Weakness of hand; Translations: [Other symptoms and signs involving the musculoskeletal system]47-47-1004TzavkqrqUkyhb female genital disorders (4 sources)Vaginal lesion; Translations: [Other specified noninflammatory disorders of vagina]27-92-1899RtixvogoVjoug gastrointestinal disorders (20 sources)Dysphagia; Translations: [Dysphagia, unspecified]70-38-3294Jsaivdpc Other gastrointestinal disorders (15 sources)Stricture of esophagus; Translations: [Personal history of other diseases of the digestive system]EpisodicOther gastrointestinal disorders (16 sources)Incontinence of feces; Translations: [Full incontinence of feces] 21-20-0288LepauwxfFrdgt gastrointestinal disorders (5 sources)Full incontinence of feces; Translations: [Full incontinence of feces]11-01-8536BdamzzuqYglqf hematologic conditions (20 sources)Secondary polycythemia; 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] 98-24-3941PoarjqynRtdou hematologic conditions (4 sources)Lesion of spleen; Translations: [Other diseases of spleen]01-12-2025 EpisodicOther injuries and conditions due to external causes (9 sources)Unspecified injury of left foot, initial encounter; Translations: [Injury of foot, left]EpisodicOther nervous system disorders (20 sources)Peripheral nerve disease ; Translations: [Polyneuropathy, unspecified]73-12-1220LyqheqyPmbgg nervous system disorders (20 sources)Polyneuropathy, unspecified; Translations: [Unspecified hereditary and idiopathic peripheral neuropathy]Onset: 03-27-2021 Resolved: 90-12-2967CynuqaeLreae nervous system disorders (20 sources)Walking disability; Translations: [Difficulty in walking, not elsewhere classified]55-69-5007GdcsnrwOldik nervous system disorders (12 sources)Difficulty in walking, not elsewhere classified; Translations: [Difficulty in walking]32-05-6767AcgcacuWhpfu nervous system disorders (20 sources)Bilateral carpal tunnel syndrome; Translations: [Carpal tunnel syndrome, bilateral upper limbs]Onset: 868152-14-8265EedgrnzGpvmt nervous system disorders (20 sources)Polyneuropathy; Translations: [Polyneuropathy, unspecified]Onset: 252274-86-0649VbkrituEdrfx nervous system disorders (20 sources)Ulnar nerve entrapment at wrist; Translations: [Lesion of ulnar nerve, unspecified upper limb]Onset: 304747-11-7371LlickyyDrdmz nervous system disorders (5 sources)Numbness; Translations: [Anesthesia of skin]72-81-5590KqumsbrtXhpuf nervous system disorders (1 source)Paresthesia; Translations: [Paresthesia of skin]49-53-7150Ppdqrcib Other nutritional; endocrine; and metabolic disorders (20 sources)Obese class I; Translations: [Body mass index (BMI) 33.0-33.9, adult]ChronicOther nutritional; endocrine; and metabolic disorders (20 sources)Body mass index 30+ - obesity; Translations: [Body mass index (BMI) 32.0-32.9, adult]Onset: 308692-93-9278AmeqxtnTwmpy nutritional; endocrine; and metabolic disorders (3 sources)Body mass index (BMI) 30.0-30.9, adultOnset: 03-27-2021 Resolved: 18-78-9817NdqzknzAydsa nutritional; endocrine; and metabolic disorders (20 sources)Obese class II; Translations: [Body mass index (BMI) 35.0-35.9, adult]ChronicOther nutritional; endocrine; and metabolic disorders (1 source)Body mass index (BMI) 35.0-35.9, adultChronicOther nutritional; endocrine; and metabolic disorders (20 sources)Hypomagnesemia; Translations: [Hypomagnesemia]36-93-1939VotocdlVdwmq nutritional; endocrine; and metabolic disorders (20 sources)Hypomagnesemia; Translations: [Disorders of magnesium metabolism] Onset: 492832-78-3859GqdmdhlSsxqg nutritional; endocrine; and metabolic disorders (16 sources)Body mass index (BMI) 32.0-32.9, adult; Translations: [Body Mass Index 32.0-32.9, adult]Onset: 857641-31-0218FfwpgxtTdvfa nutritional; endocrine; and metabolic disorders (2 sources)Obesity, unspecified; Translations: [Obesity, unspecified]Onset: 78-42-9505WosdejtEtqws nutritional; endocrine; and metabolic disorders (4 sources)Obesity; Translations: [Class 1 obesity with body mass index (BMI) of 30.0 to 30.9 in adult]53-61-1114EptdgkjIdafo nutritional; endocrine; and metabolic disorders (20 sources)Body mass index (BMI) 28.0-28.9, adult; Translations: [Body Mass Index 28.0-28.9, adult]Onset: 01-09-2022 Resolved: 54-27-2467HmxqlknhIihcf nutritional; endocrine; and metabolic disorders (1 source)Body mass index (BMI) 29.0-29.9, adultEpisodicOther nutritional; endocrine; and metabolic disorders (20 sources)Overweight in adulthood with body mass index of 25 or more but less than 30; Translations: [Body mass index (BMI) 28.0-28.9, adult]Onset: 10-07-2023 Resolved: 675815-29-6699UpwwuyqrYpzwn screening for suspected conditions (not mental disorders or infectious disease) (1 source)Ultrasound scan abnormal; Translations: [Abnormal findings on diagnostic imaging of other specifiedbody structures]46-62-7414ErdmnfuAetjc screening for suspected conditions (not mental disorders or infectious disease) (20 sources)Thyroid function tests abnormal; Translations: [Other specified abnormal findings of blood chemistry]Onset: 186080-01-3850IpiswbglJlmao skin disorders (10 sources)Lesion of skin of face; Translations: [Disorder of the skin and subcutaneous tissue, unspecified]30-81-5628ViytggzdWwfmb skin disorders (3 sources)Disorder of the skin and subcutaneous tissue, unspecified; Translations: [Unspecified disorder of skin and subcutaneous tissue]08-25-2024 EpisodicPeri-; endo-; and myocarditis; cardiomyopathy (except that caused by tuberculosis or sexually transmitted disease) (20 sources)Cardiomyopathy; Translations: [Cardiomyopathy, unspecified]Onset: 245975-19-7488WlnjtdnCqcxphmywg and visceral atherosclerosis (20 sources)Peripheral vascular disease, unspecified; Translations: [Peripheral vascular disease]Onset: 01-25-2017 Resolved: 47-10-9785JpiwfwoOyijsidj codes; unclassified (20 sources)Sleep apnea; Translations: [Sleep apnea, unspecified]ChronicResidual codes; unclassified (1 source)Sleep apnea, unspecifiedOnset: 07-03-2021 Resolved: 34-44-9251VswzayhZgqogjvn codes; unclassified (2 sources)Obstructive sleep apnea (adult) (pediatric); Translations: [Obstructive sleep apnea (adult)(pediatric)]Onset: hronic Residual codes; unclassified (20 sources)Insomnia; Translations: [Insomnia, unspecified]EpisodicResidual codes; unclassified (1 source)Asymptomatic menopausal stateEpisodicResidual codes; unclassified (16 sources)Sleep disorder; Translations: [Sleep disorder, unspecified] 31-61-8611DbdkkocpSqjfxhuj codes; unclassified (5 sources)Sleep disorder, unspecified; Translations: [Sleep disturbance, unspecified]62-88-2933NhljiwbiHxtoutgp codes; unclassified (2 sources)At increased risk of emergency hospital admission; Translations: [Other specified personal risk factors, not elsewhere classified]11-23-2024 EpisodicResidual codes; unclassified (8 sources)Postmenopausal state; Translations: [Asymptomatic menopausal state] 05-35-5847PqrtbeukJlvw and subcutaneous tissue infections (6 sources)Cellulitis of right foot; Translations: [Cellulitis of right lower limb]39-99-8192TohgydamVdhtqsdxifg; intervertebral disc disorders; other back problems (15 sources)Lumbar spondylosis; Translations: [Spondylosis without myelopathy or radiculopathy, lumbar region]89-74-7042MmqbrxwUwuutzpzl-related disorders (20 sources)Smoker; Translations: [Nicotine dependence, unspecified, uncomplicated]Onset: 14-15-1584QgkmckqVezedpkqfpp injury; contusion (8 sources)Blister of foot; Translations: [Blister (nonthermal), right foot, subsequent encounter]84-67-7600GtfkrhgeJlbeiug disorders (20 sources)Hypothyroidism; Translations: [Hypothyroidism, unspecified]Onset: 073983-23-8543UsdymmiEfbzvgljy cerebral ischemia (20 sources)Transient cerebral ischemia; Translations: [Transient cerebral ischemic attack, unspecified]Onset: 634216-18-3262ObvxqtbLhxqsxwkekep (3 sources)Dermatochalasis of left upper eyelid / H02.834(ICD-10)Onset: 12-66-4711Kltyphsafygb (1 source)Dermatochalasis of right upper eyelid / H02.831(ICD-10)Onset: 54-77-2915Xulczavdpyru (1 source)Unspecified ptosis of bilateral eyelids / H02.403(ICD-10)Onset: 38-91-7893Oooxsobihzwx (1 source)Nicotine dependence, unspecified, uncomplicated / F17.200(ICD-10) Onset: 34-44-5368Sxylcfxdlwdo (1 source)FDC (current) use of aspirin / Z79.82(ICD-10)Onset: 05-16-2017 Unclassified (1 source)supervisor intermediates (current) use of oral hypoglycemic drugs / Z79.84(ICD-10) Onset: 27-83-3853Kzxacxnurmlf (2 sources)Bilateral leg gmxvzeyk09-86-0993Ewrtuky tract infections (20 sources)Emphysematous cystitis; Translations: [Other cystitis without hematuria]04-76-7307TthcuygfRqxmm infection (1 source)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; 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]Onset: 37-72-6378Lsjuverl Past or Other Problems Problem ClassificationProblemDateDocumented DateEpisodic/ChronicConditions associated with dizziness or vertigo (20 sources)Dizziness; Translations: [Dizziness and giddiness]Onset: 04-27-2024 33-05-4967HotjktgxW Codes: Adverse effects of medical drugs (20 sources)Alpha-tocopheryl adverse reaction; Translations: [Adverse effect of vitamins, initial encounter]Onset: 880032-19-9569EdbpfiieCucwzyrxdbepe symptoms and ill-defined conditions (2 sources)Proteinuria, unspecifiedOnset: 03-27-2021 Resolved: 64-06-8570ItgnassuQttfiwlgzprcq and screening for infectious disease (20 sources)Anti-nuclear factor positive; Translations: [Other specified abnormal immunological findings in serum]Onset: 075489-28-1406Duniajhe Malaise and fatigue (20 sources)Asthenia; Translations: [Weakness]Onset: 613064-69-6726 EpisodicNutritional deficiencies (20 sources)Deficiency of other specified B group vitamins; Translations: [Cobalamin deficiency]Onset: 03-27-2021 Resolved: 90-69-9717LwnmodajVbbgx aftercare (7 sources)Taking high risk medication; Translations: [Other skilled nursing (current) drug therapy]Onset: 11-13-2023 Resolved: 005098-93-0088RxtmovztLavqq connective tissue disease (1 source)Pain in right legOnset: 04-03-2021 Resolved: 35-20-8986YhiixuciZxrmm connective tissue disease (1 source)Pain in left legOnset: 04-03-2021 Resolved: 48-54-9439ClrrqlmvEcfhu connective tissue disease (20 sources)Spasm of cervical paraspinous muscle; Translations: [Other muscle spasm]Onset: 032472-90-4880RfyoqtdiHfvpw connective tissue disease (20 sources)Muscle atrophy; Translations: [Muscle wasting and atrophy, not elsewhere classified, multiple sites]Onset: 743079-74-4374BzowhgjfHqfmz connective tissue disease (20 sources)Pain in bilateral legs; Translations: [Pain in right leg]Onset: 125882-33-1629JoystrrwXklma connective tissue disease (20 sources)Other symptoms and signs involving the musculoskeletal system; Translations: [Other musculoskeletalsymptoms referable to limbs]Onset: 827145-46-6075JxdivaefSsooz gastrointestinal disorders (5 sources)Dysphagia, unspecified; Translations: [Dysphagia, unspecified]Onset: 46-49-2298SaxabkhtQmsgf hematologic conditions (15 sources)Secondary polycythemia; 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, secondary] Onset: 464279-01-4986LqnukabkQxwmj nervous system disorders (20 sources)Impaired cognition; Translations: [Other symptoms and signs involving cognitive functions and awareness]Onset: 891501-73-6514Wmnpwajm Other skin disorders (1 source)Corns and callositiesOnset: 07-10-2021 Resolved: 44-98-3524KyvsxisjQhydgumx codes; unclassified (20 sources)Obstructive sleep apnea syndrome; Translations: [Obstructive sleep apnea (adult) (pediatric)]Onset: 10-29-2023 Resolved: 479169-48-4192CgazalxYjegakuu codes; unclassified (1 source)Insomnia, unspecifiedOnset: 05-08-2021 Resolved: 69-58-8695RjqfcsqaFxbkwnsdilj; intervertebral disc disorders; other back problems (20 sources)Spasm of muscle of lower back; Translations: [Muscle spasm of back] Onset: 537679-48-6450ZfemwiegEnagnjvvrjyw (1 source)Dermatochalasis of left upper eyelid; Translations: [Dermatochalasis of left upper eyelid]Onset: 18-11-1901Nvuctpwmiske (6 sources)Onset: 10-07-2023 Resolved: 63-84-380011864578-30-7042 Results Test NameValueInterpretationReference RangeFacilityCBC panel Auto (Bld)on 01-26-1446Cvipmbvvpaz distribution width (RBC) [Ratio]13.5 %Ndetrb13.5-15.0 [facility] on above:Order Comment: Specimen Type: BLOOD SPECIMEN Ordering Facility: Address: [address] [place], [place] [address]Performed By: #### 62149-9 #### [facility] CLIA [id number] [address] [place] [address] 00274Agwdxibsqq (Bld) [Volume fraction]51.2 %High36.0-46.0[facility] on above:Order Comment: Specimen Type: BLOOD SPECIMEN Ordering Facility: Address: [address] [place], [place] [address]Performed By: #### 06292-7 #### [facility] CLIA [id number] [address] [place] [address] 39659Yhummuvtvn (Bld) [Mass/Vol]16.8 g/fXKqic33.5-15.5CTri[facility] on above:Order Comment: Specimen Type: BLOOD SPECIMEN Ordering Facility: Address: [address] [place], [place] [address]Performed By: #### 83879-7 #### [facility] CLIA [id number] [address] [place] [address] 68154WUD (RBC) [Entitic mass]31.3 oaQptcqo56.0-34.0[facility] on above:Order Comment: Specimen Type: BLOOD SPECIMEN Ordering Facility: Address: [address] [place], [place] [address]Performed By: #### 16023-3 #### [facility] CLIA [id number] [address] [place], [place] [address]SHSZ (RBC) [Mass/Vol]32.8 g/iIRcmdjd24.5-36.0[facility] on above:Order Comment: Specimen Type: BLOOD SPECIMEN Ordering Facility: Address: [address] [place], [place] [address]Performed By: #### 85032-0 #### [facility] CLIA [id number] [address] [place] [address] 35689OYW (RBC) [Entitic vol]95.3 gJUqjqwm57.0-100.0[facility] on above:Order Comment: Specimen Type: BLOOD SPECIMEN Ordering Facility: Address: [address] [place], [place] [address]Performed By: #### 46700-0 #### [facility] CLIA [id number] [address] [place] [address] 68385Rybstzdeo RBC (Bld) [#/Vol]10*3/uLNormal<0.01[facility] on above:Order Comment: Specimen Type: BLOOD SPECIMEN Ordering Facility: Address: [address] [place], [place] [address]Performed By: #### 61885-9 #### [facility] CLIA [id number] [address] [place] [address] 65612Tvradljy mean volume (Bld) [Entitic vol]11.7 fLNormal9.0-12.7 [facility] on above:Order Comment: Specimen Type: BLOOD SPECIMEN Ordering Facility: Address: [address] [place], [place] [address]Performed By: #### 13101-1 #### [facility] CLIA [id number] [address] [place] [address] 43168Qwgkwajxr (Bld) [#/Vol]156 10*3/uGWjkwkv827-730NzpfospscUniversity Hospitals [facility] on above:Order Comment: Specimen Type: BLOOD SPECIMEN Ordering Facility: Address: [address] [place], [place] [address]Performed By: #### 65771-2 #### [facility] CLIA [id number] [address] [place], [place] [address]XIO (Bld) [#/Vol]5.37 10*6/uLHigh3.90-5.20[facility] on above:Order Comment: Specimen Type: BLOOD SPECIMEN Ordering Facility: Address: [address] [place], [place] [address]Performed By: #### 19946-7 #### [facility] CLIA [id number] [address] [place] [address] 13179AAH (Bld) [#/Vol]9.12 10*3/uLNormal3.70-11.00[facility] on above:Order Comment: Specimen Type: BLOOD SPECIMEN Ordering Facility: Address: [address] [place], [place] [address]Performed By: #### 93529-1 #### [facility] CLIA [id number] [address] [place] [address] 88526Cdiyrtblepmlx metabolic 2000 panelon 03-92-8749Pxjhuvc [Mass/Vol]4.2 g/dLNormal3.9-4.9CTri[facility] on above:Order Comment: Specimen Type: BLOOD SPECIMEN Ordering Facility: Address: [address] [place], [place] [address]Performed By: #### 48719-1 #### [facility] CLIA [id number] [address] [place] [address] 25486ZXJ [Catalytic activity/Vol]114 U/VZbytsz88-045HnsywjadbUniversity Hospitals [facility] on above:Order Comment: Specimen Type: BLOOD SPECIMEN Ordering Facility: Address: [address] [place], [place] [address]Performed By: #### 89770-5 #### [facility] CLIA [id number] [address] [place], [place] [address]PBD [Catalytic activity/Vol]21 U/LNormal7-38[facility] on above:Order Comment: Specimen Type: BLOOD SPECIMEN Ordering Facility: Address: [address] [place], [place] [address]Performed By: #### 05107-3 #### [facility] CLIA [id number] [address] [place], [place] [address]Hnyve gap [Moles/Vol]9 mmol/LNormal8-15[facility] on above:Order Comment: Specimen Type: BLOOD SPECIMEN Ordering Facility: Address: [address] [place], [place] [address]Performed By: #### 04458-9 #### [facility] CLIA [id number] [address] [place] [address] 61589MFH [Catalytic activity/Vol]28 U/WWdztox69-46BysvbrutdUniversity Hospitals [facility] on above:Order Comment: Specimen Type: BLOOD SPECIMEN Ordering Facility: Address: [address] [place], [place] [address]Performed By: #### 55012-5 #### [facility] CLIA [id number] [address] [place] [address] 16651Yqujdrijh [Mass/Vol]0.4 mg/dLNormal0.2-1.3CTri[facility] on above:Order Comment: Specimen Type: BLOOD SPECIMEN Ordering Facility: Address: [address] [place], [place] [address]Performed By: #### 78666-7 #### [facility] CLIA [id number] [address] [place], [place] [address]Udktoei [Mass/Vol]10.4 mg/dLHigh8.5-10.2CTri[facility] on above:Order Comment: Specimen Type: BLOOD SPECIMEN Ordering Facility: Address: [address] [place], [place] [address]Performed By: #### 00542-4 #### [facility] CLIA [id number] [address] [place], [place] [address]Ggwmojkh [Moles/Vol]99 mmol/ZWwftes12-374CsqaaoaakSelect Medical Specialty [facility]Com[facility] on above:Order Comment: Specimen Type: BLOOD SPECIMEN Ordering Facility: Address: [address] [place], [place] [address]Performed By: #### 98910-8 #### [facility] CLIA [id number] [address] [place], [place] [address]DZ7 [Moles/Vol]31 mmol/LAghl19-80CjquugltxSelect [facility] Comment on above:Order Comment: Specimen Type: BLOOD SPECIMEN Ordering Facility: Address: [address] [place], [place] [address]Performed By: #### 71312-3 #### [facility] CLIA [id number] [address] [place] [address] 03003Nhxzaqbdnk [Mass/Vol]0.89 mg/dLNormal0.58-0.96[facility] on above:Order Comment: Specimen Type: BLOOD SPECIMEN Ordering Facility: Address: [address] [place], [place] [address]Performed By: #### 04609-5 #### [facility] CLIA [id number] [address] [place] [address] 79593tLFKxk SerPlBld CKD-EPI 837692 mL/min/1.73m???Normal>=60 [facility] on above:Order Comment: Specimen Type: BLOOD SPECIMEN Ordering Facility: Address: [address] [place], [place] [address]Result Comment: Estimated Glomerular Filtration Rate (eGFR) is calculated using the 2020 CKD-EPI cre atinine equation. This equation utilizes serum creatinine, sex, and age as parameters. The creatinine assay has traceable calibration to isotope dilution- mass spectrometry. Refer to KDIGO guidelines for clinical interpretation. In patients with unstable renal function, e.g. those with acute kidney injury, the eGFR may not accurately reflect actual GFR.Performed By: #### 68156-2 #### [facility] CLIA [id number] [address] [place] [address] 23734Ftefjmz [Mass/Vol]197 mg/uXPyfn39-01AgkdjxabkSelect Medical Specialty [facility] Comment on above:Order Comment: Specimen Type: BLOOD SPECIMEN Ordering Facility: Address: [address] [place] [place], [place] [address]Qwlnzz Comment: The [place] [employer] (ADA) provides guidance for cutoff [...] Standards of Medical Care in Diabetes 2016, [place] [employer]. Diabetes Care. 2016.39(Suppl 1).Performed By: #### 29524-1 #### [facility] CLIA [id number] [address] [place] [address] 59283Vrzjwvczf [Moles/Vol]5.0 mmol/LNormal3.7-5.1CTriHealth [facility] on above:Order Comment: Specimen Type: BLOOD SPECIMEN Ordering Facility: Address: [address] [place] [place], [place] [address]Ckntmbtmi By: #### 13824-6 #### [facility] CLIA [id number] [address] [place] [address] 39500Tlwtjis [Mass/Vol]7.5 g/dLNormal6.3-8.0[facility] on above:Order Comment: Specimen Type: BLOOD SPECIMEN Ordering Facility: Address: [address] [place] [place], [place] [address]Sakybtkmi By: #### 39017-3 #### [facility] CLIA [id number] [address] [place], [place] [address]Bmcfus [Moles/Vol]139 mmol/RCqubvx208-642PnfmojvahUniversity Hospitals Par[facility] Center on above:Order Comment: Specimen Type: BLOOD SPECIMEN Ordering Facility: Address: [address] [place], [place] [address]Performed By: #### 41222-5 #### [facility] CLIA [id number] [address] [place], [place] [address]Vphh nitrogen [Mass/Vol]8 mg/dLNormal7-21[facility] on above:Order Comment: Specimen Type: BLOOD SPECIMEN Ordering Facility: Address: [address] [place], [place] [address]Performed By: #### 45616-9 #### [facility] CLIA [id number] [address] [place], [place] [address]IGBP AND SCREEN,30 DAYon 45-19-2202FFMPDtfljxJqylnyjmjTriHealth [facility] on above:Order Comment: Specimen Type: BLOOD SPECIMEN Ordering Facility: Address: [address] [place], [place] [address]Performed By: #### [id number] #### [facility] CLIA [id number] [address] [place] [address] [place] STATES OF AMERICARh Nom (Bld)PositiveNormalCTriHealth McCullough-[facility] on above:Order Comment: Specimen Type: BLOOD SPECIMEN Ordering Facility: Address: [address] [place], [place] [address]Performed By: #### [id number] #### [facility] CLIA [id number] [address] [place] [address] STATES OF AMERICACNPNon [id number] (NCCAP) TAYE GAY ([id number]) 1955 F Date Time Provider Department 02/18/25 ZACK CORDOBA During your visit today, we recorded the following information about you: Marylin KennedySarah 02/18/2025 10:34 AM Signed ----- Message from Shantel Sanabria sent at 02/18/2025 10:06 AM EDT ----- Can someone please call Dr. Linwood Irwin office to get this colposcopy with biopsies scheduled? Thanks! Shantel ----- Message ----- From: Farida Sinclair APRN.REGULATORY SUBMISSIONS SPECIALIST Sent: 02/17/2025 12:43 PM EDT To: Shantel Gutierrez [facility] Thanks, so the plot thickens. The [...] results. ----- Message ----- From: Farida Sinclair APRN.REGULATORY SUBMISSIONS SPECIALIST Sent: 02/11/2025 3:41 PM EDT To: Zack Cordoba MD; Shantel Gutierrez # Hi all, path review back, patient just has benign warts. However I don't see a pap result from that visit, am I missing it? 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 She might need something with her cervix. Can we please get her pap? If everything is normal she doesn't need us unless Dr. Irwin needs surgical help. Thanks. Farida Coulter Pss, Sarah 02/18/2025 10:55 AM Signed I called Dr Irwin office [phone] and spoke with Summer. 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 I gave Summer our [place] office phone number to call back with any updates and also provided her with Dr Cordoba [place] [phone] Irwin to call if she has any questions for Farida or Dr Cordoba regarding this patient. Sarah Coulter Pss, Sarah 03/03/2025 9:04 AM Signed Hi Farida, I am not in the office on Tuesdays, that is why I am just getting back to you today on this. I called Dr Irwin office and spoke with Summer. Summer states they have been unable to reach patient. Their office has left several messages for patient to call their office back to get scheduled. Per Summer their last attempt to reach pt/message left was yesterday 03/02. Patient does not have any appointments currently scheduled at their office at this time. Thank you, Sarah Coulter Pss Allergies As of Date: 02/18/2025 Noted Allergy Reaction SULFA (SULFONAMIDE ANTIBIOTICS) 2018 11 - Vomiting Date Reviewed: 12/18/2019 Reviewed by: Michelle Fritz (Catarina)CATARINA - Fully Assessed Prescriptions as of 03/11/2025 - sertraline (ZOLOFT) 50 mg tablet Take 50 mg by mouth. - semaglutide (OZEMPIC) 1 mg/dose (4 mg/3 mL) pen Inject 1 mg subcutaneously one time a week. - pregabalin (LYRICA) 300 mg capsule Take 300 mg by mouth two times a day. - memantine (NAMENDA) 10 mg tablet Take 10 mg by mouth two times a day. - polyethylene glycol 3350 (MIRALAX) 17 gram/dose [...] vaginal cream insert 1 applicatorful vaginally once (more content not included)...Normal [facility] SURG PATH SLIDE REVIEWon 95-20-4845VA DISCLAIMERNormalCTriHealth McCull[facility] on above:Order Comment: Specimen Type: FORMALIN-FIXED PARAFFIN-EMBEDDED TISSUE SPECIMEN Ordering Facility: AP Outside Review Address: , ,Result Comment: Laboratory Developed Test (LDT) Disclaimer: Performance characteristics of immunohistochemical, immunofluorescent, and chromogenic in-situ hybridization tests have been determined by the performing laboratory within the [facility] Department of Pathology and Laboratory Medicine ([facility], [facility], [facility], [facility], [facility], [facility], or [facility]) in a manner consistent with CLIA requirements. One or more of these tests may not have been cleared or approved by the FDA. The [facility] Department of Pathology and Laboratory Medicineis regulated under CLIA as qualified to perform high-complexity testing. These tests are used for clinical purposes. These should not be regarded as investigational or for research. Positive and negative controls stain appropriately.Performed By: #### [id number] #### [facility] CLIA [id number] [address] [place] [address] OF [facility] GENERALCASE REPORTNoMercy Health – [facility] on above:Order Comment: Specimen Type: FORMALIN-FIXED PARAFFIN- EMBEDDED TISSUE SPECIMEN Ordering Facility: AP Outside Review Address: , ,Result Comment: Surgical Pathology Report Case: [id number] Authorizing Provider: Zack Cordoba MD Collected: 02/10/2025 10:21 PM Ordering Location: [facility] Received: 02/10/2025 10:19 PM [facility] Pathologist: Stacy Hassan MD Specimen: Slide(s), 2 SLIDES ([id number])Performed By: #### [id number] #### [facility] CLIA [id number] [address] [place], [place] [address]FINAL DIAGNOSISNoMercy Health – The Jewish Hospital on above:Order Comment: Specimen Type: FORMALIN-FIXED PARAFFIN-EMBEDDED TISSUE SPECIMEN Ordering Facility: AP Outside Review Address: , ,Result Comment: Review of outside slides Vulva, biopsy: Consistent with condyloma. at 1516 EDTPerformed By: #### [id number] #### [facility] CLIA [id number] [address] [place], [place] [address]FINAL PERFORMING LABNoMercy Health – The [facility] on above:Order Comment: Specimen Type: FORMALIN-FIXED PARAFFIN-EMBEDDED TISSUE SPECIMEN Ordering Facility: AP Outside Review Address: , ,Result Comment: Diagnostic interpretation performed at: [facility], [address] [place] [address] CLIA# [id number] Special Loan Officer: Rudi Turner MDPerformed By: #### [id number] #### [facility] CLIA [id number] [address] [place], [place] [address] [place] OF AMERICAMISCELLANEOUS SMEAR CYTOLOGYon 84-56-0651Uubbkxgi report Cyto stain Doc (Unsp spec)CommentNOMI Healthcare Comment on above:VULVA INCONCLUSIVE. ATYPICAL SQUAMOUS CELLS OF UNDETERMINED SIGNIFICANCE (ASC-US) (VULVAR). FUNGAL ORGANISMS ARE PRESENT. Pathologist nameCommentNOMS HealthcareComment on above:Eldon Madera MD, PathologistPathology report comments [Interpretation] NarrativeCommentNOMS HealthcareComment on above:Suggest follow up as clinically appropriate.Pathology report gross observation NarrativeCommentNOMS HealthcareComment on above:20ML, LT WHITE, CLOUDY /LCS 02/05/2025 0740 Local Pathology report site of origin NarrativeCommentNOMS HealthcareComment on above: VULVAPerformed by:CommentNOMI HealthcareComment on above:Carmelita Reese, Retanned Leather Roller (ASCP)Performed at: 01 - [address] [id number] Walking Dragline Oiler: Savi Cai MD, Phone: [phone] Specimen Comment: No. of containers..01 ThinPrep VialLABCORPUniversity HospitalNo Panel Informationon 41-10-7858Obrcrjhcw ICD code [Identifier]CommentNOCarondelet HealthComment on above:N89.8 Z01.419 Z12.4 R87.69CNPNon 29-07-3641RNDEZrxhgncal ([facility]) TAYE GAY ([id number]) 1955 F Date Time Provider Department 02/04/25 ZACK [facility]ORDOBA [facility] During your visit today, we recorded the following information about you: Reva Finney 02/04/2025 3:42 PM Signed Patient has referral to see Dr. Cordoba diagnosis of recurrent lesion referring provider Linwood Irwin first available is March 09 Please review and advise Thank you Reva Finney, RAUL [facility] 02/05/2025 8:46 AM Signed The path report [...] lesion [N90.89] Order(s):OUTSIDE SURG PATH SLIDE REVIEW [[id number]] Order #: [id number] Prescriptions as of 02/09/2025 - polyethylene glycol [...] [F17.200] Encounter Status:Closed by FARIDA SINCLAIR on 02/09/25[facility] lung screeningon 30-48-0814PP lung screeningOHIOHEALTH [facility] Main [place] [address] [place] [address] CT Scan Report Signed Patient: Taye Gay MR#: [id number] 19 : 1955 Acct:[id number] Age/Sex: 69 / F ADM Date: 02/02/25 Loc: CT Room: Type: [facility] Attending Dr: CHERYL Palacios APRN Copies [...] Jr., DKenishaOKenisha 02/02/2025 12:36 PM Dictation Location: [facility]--27 Transcribed By: [facility] 02/02/25 1236 Dictated By: Edgar Segovia Jr DO 02/02/25 1232 Signed By: 02/02/25 1236[facility] NnclmAkH2x HPLC (Bld) [Mass fraction] Ordered By: Angelique Russell on 12-88-3572BsQ0b (Bld) [Mass fraction]8.6 %Providence HospitalNo Panel InformationOrdered By: Angelique Russell on 64-03-9244Pscbynr Wosflni777JrcjerwbmProvidence HospitalMR LUMBAR SPINE WO CONTRASTon 76-65-3841UW LUMBAR SPINE WO CONTRASTEXAM: MR LUMBAR SPINE [...] benefit to ensure stability. ELECTRONICALLY SIGNED BY: Nadiya EarlmalNot AvailableAerobic culture with sensitivityOrdered By: Karl Fritz on 11-44-6685Tbcefgxg identified Aer cx Nom (Unsp spec)Klebsiella oxytocaAbPremier Health Miami [facility] South Bacteria identified Aer cx Nom (Unsp spec)Staphylococcus aureusAbAshtabula County Medical Centeruperficial Wound Cultureon 52-56-4405Pnrsqpmduto Wound CultureORGANISM: Klebsiella oxytoca (O:KLEOXY) Quantity of [...] RESISTANT TO ALL B-LACTAM DRUGS. PERFORMED BY: [place] [address] PATHOLOGIST CRYPTOZOOLOGIST BENNIE HIGGINBOTHAM M.D.NormalMemorial Regional Hospital South Physician GroupComment on above: Performed By: #### CMP, MG, PHOS, CBC #### [place] [address] USAXR Foot - right 3 Viewson 43-03-9253Qwuopga Result: Three views of the right foot: [...] plantar sesamoids and metatarsal head right 1st metatarsal.[facility] HealthcareRadiology Study observation (narrative)[facility] Centerillary blood glucose measurement by glucometer (mass/volume)Ordered By: Manjit Gleason on 41-14-0336Agmawlz [Mass/Vol]234 mg/dLNoWadsworth-Rittman Hospital Comment on above:Random Glucose Reference Range is [...] By: #### CMP, MG, PHOS, CBC #### [facility] [address] [place] [address] USAGlucose Glucometer (BldC) [Mass/Vol]Ordered By: Manjit Gleason on 83-56-4308Btxixca [Mass/Vol]Capillary blood glucose measurement by glucometer (mass/volume)Providence HospitalComment on above:Random Glucose Reference Range is dependent on time and content of last meal. Glucose of more than 200 mg/dL in a nonstressed, ambulatory subject supports the diagnosis of Diabetes Mellitus.Glucose Poct Glucometerson 63-15-2059Bjgofqa9 Glu2: Cleaned [facility] Physician GroupComment on above:Result Comment: PERFORMED BY: [place] [id number] PATHOLOGIST CRYPTOZOOLOGIST LE MACE M.D.Performed By: #### CMP, MG, PHOS, CBC #### [address] [address] USANo Panel InformationOrdered By: Manjit Gleason on 09-10-2024 Miscellaneous Pathology TestSee Doctors HospitalComment on above:See report. Scanned copy available in EMR.Bedside Glucose CommentGlu2: cleaned [facility] CenterPathology Request for Lab Corpon 18-07-9720Afpcpktiq Request for Lab CorpAdventHealth Fish Memorial Physician Group Comment on above:Order Comment: GI SPECIMENResult Comment: See report. Scanned copy available in EMR. PERFORMED BY: [place] [id number] PATHOLOGIST CRYPTOZOOLOGIST LE MACE M.D.Performed By: #### CMP, MG, PHOS, CBC #### [facility] [address] [place] [address] FOEGaP0q HPLC (Bld) [Mass fraction]on 15-74-1590NhY3t (Bld) [Mass fraction]Hemoglobin A1c/Hemoglobin.total in Blood by [facility]enan Private HospitalHbA1c (Bld) [Mass fraction]8.8 %Providence HospitalNo Panel Informationon 92-49-2853Zcuwscf Nyekhfw589InjhurkvfProvidence HospitalUS ankle/arm indiceson 80-48-2522CU ankle/arm indices [facility] [address] [place] [address] Ultrasound Report Signed Patient: Taye Gay MR#: [id number] [birth year] : 1955 Acct:[id number] Age/Sex: 68 / F ADM Date: 07/22/24 Loc: [facility] Room: Type: [facility] Attending Dr: Tray Nava MD [...] Eugenio Rob M.D.07/23/2024 9:21 AM Dictation Location: [place] [address] Tech: Carmelita Carlos Manuel Transcribed By: [facility] 07/23/24 0921 Dictated By: Eugenio Rob MD 07/23/24 0920 Signed By: 07/23/24 0921[facility] Physician GroupUrine Cultureon 07-06-2024 Bacteria identified Cx Nom (U)ORGANISM: Klebsiella oxytoca (O:KLEOXY) [place] Count >100,000 Aerobic FAMILIA Charge (NMIC56) SUSCEPTIBILITY [...] RESISTANT TO ALL B-LACTAM DRUGS. PERFORMED BY: [place] [address] PATHOLOGIST CRYPTOZOOLOGIST LE MACE M.D.[facility] Physician GroupComment on above: Performed By: #### CMP, MG, PHOS, CBC #### [place] [address] USAUrine cultureOrdered By: Deneen Frost on 07-06-2024 Bacteria identified Cx Nom (U)AbnormalProvidence HospitalAlanine aminotransferase [Enzymatic activity/volume] in Serum or PlasmaOrdered By: Angelique Russell on 11-60-2432TQD [Catalytic activity/Vol]Alanine aminotransferase [Enzymatic activity/volume] in Serum or Plasma7-Providence HospitalAlbumin [Mass/volume] in Serum or Plasma by Bromocresol green (BCG) dye binding methoOrdered By: Angelique Russell on 11-73-8282Exespaz BCG dye [Mass/Vol] Albumin [Mass/volume] in Serum or Plasma by Bromocresol green (BCG) dye binding metho3.5-5.7FWadsworth-Rittman HospitalAlkaline phosphatase [Enzymatic activity/volume] in Serum or PlasmaOrdered By: Angelique Russell on 97-81-5903MFQ [Catalytic activity/Vol]Alkaline phosphatase [Enzymatic activity/volume] in Serum or Oanzvr02-171BeivbcblgProvidence HospitalAspartate aminotransferase [Enzymatic activity/volume] in Serum or PlasmaOrdered By: Angelique Russell on 62-45-9002XXC [Catalytic activity/Vol]Aspartate aminotransferase [Enzymatic activity/volume] in Serum or Qlzren96-04XmcylhemuProvidence HospitalB-Type Natriuretic Peptideon 51-81-0799Hmjkzpihbsp peptide B (Bld) [Mass/Vol]54.0 pg/mL Normal5-100The [facility] Health Physician GroupComment on above:Result Comment: PERFORMED BY: [facility] [address] [place] [address] PATHOLOGIST CRYPTOZOOLOGIST LE MACE M.D.Performed By: #### CMP, MG, PHOS, CBC #### [facility] [address] [place] [address] USABCR-ABL Neogenomicon 63-88-8015PRA-ABL NeogenomicNormHCA Florida Trinity Hospital Physician Trace Regional HospitalComment on above:Result Comment: See report. Scanned copy available in EMR. PERFORMED BY: [facility] [address] [place] [address] PATHOLOGIST CRYPTOZOOLOGIST LE MACE M.D.Performed By: #### CMP, MG, PHOS, CBC #### [facility] [address] [place] [address] USABasophils Auto (Bld) [#/Vol]Ordered By: Nataliya Jane on 65-22-4641Ortvnonrm (Bld) [#/Vol]Automated basophil count0.0-0.2FWadsworth-Rittman HospitalBasophils/100 WBC Auto (Bld)Ordered By: Nataliya Jane on 24-04-7996Fozxxywxb/100 WBC (Bld)Automated basophil %.Providence HospitalBilirubin.total [Mass/volume] in Serum or PlasmaOrdered By: Angelique Russell on 78-87-3843Dvyyqbyix [Mass/Vol]Bilirubin.total [Mass/volume] in Serum or Plasma0.3-1.0Providence HospitalCBC W Auto Differential panel (Bld)on 68-62-7382Zoescbojz (Bld) [#/Vol]0 10*3/uL0.0 - 0.2 10*3/uLNOMS HealthcareBasophils/100 WBC Manual cnt (Syn fld)0.5 %.[facility] HealthcareEosinophils (Bld) [#/Vol]0.2 10*3/uL0.0 - 0.45 10*3/uLNOMS HealthcareEosinophils/100 WBC Manual cnt (Syn fld)2.7 %.University HospitalErythrocyte distribution width (RBC) [Ratio]14.6 %11.9 - 15.3 %[facility] HealthcareHematocrit (Bld) [Volume fraction]46.4 %34.0 - 46.4 %University HospitalHemoglobin (Bld) [Mass/Vol]15.8 g/aRBvpk79.8 - 15.4 g/dLUniversity HospitalInterpretation and review of laboratory resultsAbnormalUniversity HospitalLymphocytes (Bld) [#/Vol]1.6 10*3/uL1.00 - 4.8 10*3/uLNOMS Healthcare Lymphocytes/100 WBC Manual cnt (Syn fld)23.1 %.[facility] HospitalH (RBC) [Entitic mass]32.6 pg24.7 - 34.3 pgLee's Summit HospitalHC (RBC) [Mass/Vol]34.2 g/dL32.0 - 35.0 g/dLLee's Summit HospitalV (RBC) [Entitic vol]95.3 fL80 - 100 fLUniversity Hospital Monocytes (Bld) [#/Vol]0.5 10*3/uL0.0 - 0.8 10*3/uLNOCarondelet Health Monocytes+Macrophages/100 WBC Manual cnt (Syn fld)6.6 %.[facility] Neutrophils (Bld) [#/Vol]4.6 10*3/uL1.8 - 7.7 10*3/uLNOMS Healthcare Neutrophils/100 WBC Manual cnt (Syn fld)67.1 %.NOMS HealthcareNRBC0.1 /100{WBC}0 - 0.5 /100{WBC}NOMS HealthcarePlatelet mean volume (Bld) [Entitic vol]10.4 fL 6.3 - 10.7 fLNOMS HealthcarePlatelets (Bld) [#/Vol]120 10*3/kFAgv120 - 450 10*3/uLNOMS HealthcareRBC LM.HPF (Urine sed) [#/Area]4.86 10*6/uL3.60 - 5.00 10*6/uLNOMS HealthcareWBC (Bld) [#/Vol]6.9 10*3/uL3.8 - 11.6 10*3/uLNOMS HealthcareWBC LM.HPF (Urine sed) [#/Area]6.9 10*3/uL3.8 - 11.6 10*3/uLNOMS HealthcareNOMS HealthcareCalcium [Mass/volume] in Serum or PlasmaOrdered By: Angelique Russell on 76-01-0353Gkymwmk [Mass/Vol]Calcium [Mass/volume] in Serum or Plasma8.6-10.3FWadsworth-Rittman HospitalCarbon dioxide, total [Moles/volume] in Serum or PlasmaOrdered By: Angelique Russell on 39-42-0533KY7 [Moles/Vol]Carbon dioxide, total [Moles/volume] in Serum or Hzvilr89.0-31.0 Providence HospitalChloride [Moles/volume] in Serum or Plasma Ordered By: Angelique Russell on 40-35-7076Sksobygg [Moles/Vol]Chloride [Moles/volume] in Serum or Fnlicr83-002ZkekxcxcpProvidence Hospital Cholesterol [Mass/volume] in Serum or PlasmaOrdered By: Angelique Russell on 77-18-8870Iejlcaffwyc [Mass/Vol]Cholesterol [Mass/volume] in Serum or PlasmaLow 140-200Providence HospitalComment on above:Chol less than 200 mg/dl low riskChol 201-239 mg/dl borderline riskChol 240 mg/dl and greater high riskCholesterol in HDL [Mass/volume] in Serum or PlasmaOrdered By: Angelique Russell on 39-08-2606Msjacbqcvmz in HDL [Mass/Vol]Serum or plasma high density lipoprotein (HDL) cholesterol twrpqlnoefe58-54IpaiawmzwProvidence Hospital Comment on above:HDL CHOL ATP-III CLASSIFICATION Cardiovascular RiskHDL > or equal to 60 mg/dL LOWHDL < 40 mg/dL HIGHCholesterol in LDL Calc [Mass/Vol] Ordered By: Angelique Russell on 99-47-6826Pfbvxltllsf in LDL [Mass/Vol]Cholesterol in LDL [Mass/volume] in Serum or Plasma by calculationProvidence HospitalComment on above:LDL ATP III CLASSIFICATIONLDL less than 100 mg/dL OptimalLDL 100-129 mg/dL Near or above intmfdeFLK471-600 mg/dL Borderline highLDL 160-189 mg/dL HighLDL greater than 189 mg/dL Very highCholesterol in VLDL Calc [Mass/Vol]Ordered By: Angelique Russell on 90-07-0651Yqqbgcycavi in VLDL [Mass/Vol]Cholesterol in VLDL [Mass/volume] in Serum or Plasma by calculation Providence HospitalComplete Blood Count Auto Diffon 06-26-2024 Basophils (Bld) [#/Vol]0.0 10*3/uLNormal0.0-0.2The [facility] Comment on above:Result Comment: PERFORMED BY: [place] [address] PATHOLOGIST CRYPTOZOOLOGIST LE MACE M.D.Performed By: #### CMP, MG, PHOS, CBC #### [facility] [address] [place] [address] USABasophils/100 WBC (Bld)0.5 %Normal.The [facility] Health Physician GroupComment on above:Performed By: #### CMP, MG, PHOS, CBC #### [facility] [address] [place] [address] USAEosinophils (Bld) [#/Vol]0.2 10*3/uLNormal0.0-0.45The [facility] Health Physician GroupComment on above:Performed By: #### CMP, MG, PHOS, CBC #### [place] [address] USAEosinophils/100 WBC (Bld)2.7 %Normal.The [facility] Health Physician GroupComment on above:Performed By: #### CMP, MG, PHOS, CBC #### [place] [address] USAErythrocyte distribution width (RBC) [Ratio]14.6 %Normal 11.9-15.3The [facility] Health Physician GroupComment on above:Performed By: #### CMP, MG, PHOS, CBC #### [place] [address] USAHematocrit (Bld) [Volume fraction]46.4 %Bvsbrf05.0-46.4The [facility] Health Physician GroupComment on above:Performed By: #### CMP, MG, PHOS, CBC #### [place] [address] USAHemoglobin (Bld) [Mass/Vol]15.8 g/iXFtym72.8-15.4The [facility] Physician GroupComment on above:Performed By: #### CMP, MG, PHOS, CBC #### [place] [address] USALymphocytes (Bld) [#/Vol]1.6 10*3/uLNormal1.00-4.8The [facility] Health Physician GroupComment on above:Performed By: #### CMP, MG, PHOS, CBC #### [place] [address] USALymphocytes/100 WBC (Bld)23.1 %Normal.The [facility] Health Physician GroupComment on above:Performed By: #### CMP, MG, PHOS, CBC #### [place] [address] USAMCH (RBC) [Entitic mass]32.6 jjSywydg86.7-34.3The [facility] Health Physician GroupComment on above:Performed By: #### CMP, MG, PHOS, CBC #### [address] [place] [address] USAMCV (RBC) [Entitic vol]95.3 wXRwhefg97-981Lts [facility] Physician GroupComment on above:Performed By: #### CMP, MG, PHOS, CBC #### [place] [address] USAMean Corpuscular HGB Conc34.2 g/zFDyhyji32.0-35.0The [facility] Health Physician GroupComment on above:Performed By: #### CMP, MG, PHOS, CBC #### [place] [address] USAMonocytes (Bld) [#/Vol]0.5 10*3/uLNormal0.0-0.8The [facility] Health Physician GroupComment on above:Performed By: #### CMP, MG, PHOS, CBC #### [place] [address] USAMonocytes/100 WBC (Bld)6.6 %Normal.The [facility] Physician GroupComment on above:Performed By: #### CMP, MG, PHOS, CBC #### [place] [address] USANeutrophils (Bld) [#/Vol]4.6 10*3/uLNormal1.8-7.7The [facility] Health Physician GroupComment on above:Performed By: #### CMP, MG, PHOS, CBC #### [place] [address] USANeutrophils/100 WBC (Bld)67.1 %Normal.The [facility] Health Physician GroupComment on above:Performed By: #### CMP, MG, PHOS, CBC #### [place] [address] USANRBC%0.1 /100{WBC}Normal0-0.5The [facility] Comment on above:Performed By: #### CMP, MG, PHOS, CBC #### [place] [address] USAPlatelet mean volume (Bld) [Entitic vol]10.4 fLNormal 6.3-10.7The [facility] Health Physician GroupComment on above:Performed By: #### CMP, MG, PHOS, CBC #### [place] [address] USAPlatelets (Bld) [#/Vol]120 10*3/kRGyn157-646Wwo [facility] Physician GroupComment on above:Performed By: #### CMP, MG, PHOS, CBC #### [place] [address] USARBC (Bld) [#/Vol]4.86 10*6/uLNormal3.60-5.00The [facility] Health Physician GroupComment on above:Performed By: #### CMP, MG, PHOS, CBC #### [place] [address] USAWBC (Bld) [#/Vol]6.9 10*3/uLNormal3.8-11.6The [facility] Health Physician GroupComment on above:Performed By: #### CMP, MG, PHOS, CBC #### [place] [address] USAComprehensive Metabolic Panelon 76-23-5580Enwnlts [Mass/Vol]3.8 g/dLNormal3.5-5.7The [facility] Health Physician GroupComment on above: Performed By: #### CMP, MG, PHOS, CBC #### [place] [address] USAAlbumin/Globulin [Mass ratio]1.5 {ratio}NormalThe Atrium Health Physician GroupComment on above:Performed By: #### CMP, MG, PHOS, CBC #### [place] [address] USAALP [Catalytic activity/Vol]92 U/JBkpkaz30-282Gwm [facility] Physician GroupComment on above:Result Comment: PERFORMED BY: [place] [address] PATHOLOGIST CRYPTOZOOLOGIST LE MACE M.D.Performed By: #### CMP, MG, PHOS, CBC #### [facility] [address] [place] [address] USAALT [Catalytic activity/Vol]23 U/LNormal7-52The [facility] Physician GroupComment on above:Performed By: #### CMP, MG, PHOS, CBC #### [facility] [address] [place] [address] USAAnion gap [Moles/Vol]12.2 mmol/LNormal6.0-15.0The [facility] Physician GroupComment on above:Performed By: #### CMP, MG, PHOS, CBC #### [facility] [address] [place] [address] USAAST [Catalytic activity/Vol]36 U/TRnrwyz58-60Omm [facility] Physician GroupComment on above:Performed By: #### CMP, MG, PHOS, CBC #### [place] [address] USABilirubin [Mass/Vol]0.4 mg/dLNormal0.3-1.0The [facility] Health Physician GroupComment on above:Performed By: #### CMP, MG, PHOS, CBC #### [facility] [address] [place] [address] USACalcium [Mass/Vol]9.4 mg/dLNormal8.6-10.3The [facility] Physician GroupComment on above:Performed By: #### CMP, MG, PHOS, CBC #### [place] [address] USAChloride [Moles/Vol]103 mmol/WDnshoz81-323Dev [facility] Physician GroupComment on above:Performed By: #### CMP, MG, PHOS, CBC #### [facility] [address] [place] [address] USACO2 [Moles/Vol]29.0 mmol/EZjreoj70.0-31.0The [facility] Physician GroupComment on above:Performed By: #### CMP, MG, PHOS, CBC #### [facility] [address] [place] [address] USACreatinine [Mass/Vol]0.93 mg/dLNormal0.60-1.20The [facility] Physician GroupComment on above:Performed By: #### CMP, MG, PHOS, CBC #### [place] [address] USAGFR/1.73 sq M.predicted MDRD (S/P/Bld) [Vol rate/Area] mL/min/{1.73_m2}NormalThe Atrium Health Physician GroupComment on above:Performed By: #### CMP, MG, PHOS, CBC #### [place] [address] USAGlobulin (S) [Mass/Vol]2.6 g/dLNormalThe [facility]rium Health Physician GroupComment on above:Performed By: #### CMP, MG, PHOS, CBC #### [place] [address] USAGlucose [Mass/Vol]256 mg/bDDqnf58-114Irb [facility] Physician GroupComment on above:Result Comment: Random Glucose Reference Range is dependent on time and content of last meal. Glucose of more than 200 mg/dL in a nonstressed, ambulatory subject supports the diagnosis of Diabetes Mellitus. ADA recommended reference rangePerformed By: #### CMP, MG, PHOS, CBC #### [place] [address] USAPotassium [Moles/Vol]4.2 mmol/LNormal3.5-5.1The [facility] Physician GroupComment on above:Performed By: #### CMP, MG, PHOS, CBC #### [place] [address] USAProtein [Mass/Vol]6.4 g/dLNormal6.4-8.9The [facility] Physician GroupComment on above:Performed By: #### CMP, MG, PHOS, CBC #### [place] [address] USASodium [Moles/Vol]140 mmol/GMckxhz050-106Dit [facility] Physician GroupComment on above:Performed By: #### CMP, MG, PHOS, CBC #### [address] [place] [address] USAUrea nitrogen [Mass/Vol]9 mg/dLNormal [facility] Physician GroupComment on above:Performed By: #### CMP, MG, PHOS, CBC #### [facility] [address] [place] [address] USACreatinine [Mass/volume] in Serum or PlasmaOrdered By: Angelique Russell on 78-41-7186Lukhgxtiai [Mass/Vol]Creatinine [Mass/volume] in Serum or Plasma0.60-1.20Providence HospitalCreatinine [Mass/volume] in UrineOrdered By: Angelique Russell on 68-23-0038Ftjklrlukj (U) [Mass/Vol]Creatinine [Mass/volume] in UrineProvidence HospitalComment on above:No reference range establishedECG 12 Leadon 58-09-2954Ojtoku sinus rhythmCPACS [facility] Work Phone: Eosinophils Auto (Bld) [#/Vol]Ordered By: Nataliya Jane on 22-37-9843Wtnvhcqfaqu (Bld) [#/Vol]Automated eosinophil count 0.0-0.45[facility] HospitalEosinophils/100 WBC Auto (Bld)Ordered By: Nataliya Jane on 76-18-3123Knsjowvnluh/100 WBC (Bld)Automated eosinophil %. Providence HospitalErythrocyte distribution width Auto (RBC) [Ratio]Ordered By: Nataliya Jane on 21-27-5927Apmtwgimgsr distribution width (RBC) [Ratio]Erythrocyte distribution width [Ratio] by Automated count11.9-15.3 [facility] HospitalFlowcytometry Neogenomicon 06-26-2024 Flowcytometry NeogenomicNoCrawley Memorial Hospital Physician GroupComment on above: Result Comment: See report. Scanned copy available in EMR.Performed By: #### CMP, MG, PHOS, CBC #### [facility] [address] [place] [address] USAGlobulin Calc (S) [Mass/Vol]Ordered By: Angelique Russell on 05-74-0969Xotobpux (S) [Mass/Vol]Serum globulin measurement by calculation (mass/volume)Providence HospitalGlucose [Mass/volume] in Serum or PlasmaOrdered By: Angelique Russell on 48-71-3558Axxwlkf [Mass/Vol]Glucose [Mass/volume] in Serum or IzujfwVwje06-738QmakzyymyProvidence Hospital Comment on above:ADA recommended reference rangeRandom Glucose Reference Range is dependent on time and content of last meal. Glucose of more than 200 mg/dL in a nonstressed, ambulatory subject supports the diagnosisof Diabetes Mellitus. Hematocrit Auto (Bld) [Volume fraction]Ordered By: Nataliya Lucinda on 06-26-2024 Hematocrit (Bld) [Volume fraction]Hematocrit [Volume Fraction] of Blood by Automated count34.0-46.4FWadsworth-Rittman HospitalHemoglobin [Mass/volume] in BloodOrdered By: Nataliya Lucinda on 61-83-2505Llbknwasxu (Bld) [Mass/Vol]Hemoglobin [Mass/volume] in DtqxkTgak51.8-15.4FWadsworth-Rittman HospitalJAK 2 Neogenomicon 36-96-5971PLV 2 NeogenomicNormKettering Health Miamisburge Atrium Health Physician GroupComment on above:Result Comment: See report. Scanned copy available in EMR.Performed By: #### CMP, MG, PHOS, CBC #### [facility] [address] [place] [address] USALeukocytes [#/volume] corrected for nucleated erythrocytes in Blood by Automated counOrdered By: Naatliya Lucinda on 45-62-9208NWN corrected for nucl RBC Auto (Bld) [#/Vol]Leukocytes [#/volume] corrected for nucleated erythrocytes in Blood by Automated coun3.8-11.6FWadsworth-Rittman Hospital Lipid Panelon 00-60-0976Lwejlahptjg [Mass/Vol]93 mg/uFVqg459-658Olz [facility] Health Physician GroupComment on above:Result Comment: Chol less than 200 mg/dl low risk Chol 201-239 mg/dl borderline risk Chol 240 mg/dl and greater high riskPerformed By: #### CMP, MG, PHOS, CBC #### [facility] [address] [place] [address] USACholesterol in HDL [Mass/Vol]27 mg/pZLwvhcb28-66Slv [facility] Health Physician GroupComment on above:Result Comment: HDL CHOL ATP-III CLASSIFICATION Cardiovascular Risk HDL > or equal to 60 mg/dL LOW HDL < 40 mg/dL HIGHPerformed By: #### CMP, MG, PHOS, CBC #### [facility] [address] [place] [address] USACholesterol.total/Cholesterol in HDL [Mass ratio]3.4 {ratio}Normal<5.0The Atrium Health Physician GroupComment on above:Performed By: #### CMP, MG, PHOS, CBC #### [facility] [address] [place] [id number] USALDL Cholesterol,Pegfpacpsm20 mg/dLNormal0-100The Atrium Health Physician GroupComment on above:Result Comment: LDL ATP III CLASSIFICATION LDL less than 100 mg/dL Optimal LDL 100-129 mg/dL Near or above optimal LDL 130-159 mg/dL Borderline high LDL 160-189 mg/dL High LDL greater than 189 mg/dL Very highPerformed By: #### CMP, MG, PHOS, CBC #### [facility] [address] [place] [id number] USATriglyceride w/Xmqdyg151 mg/dLHigh0-149The [facility] Health Physician GroupComment on above:Result Comment: TRIG ATP III CLASSIFICATION TRIG less than 150 mg/dL Normal TRIG 150-199 mg/dL Borderline high TRIG 200-500 mg/dL High TRIG greater than 500 mg/dL Very high Standard traceable to the Center for Disease Conrtrol and Prevention (CDC) test method.Performed By: #### CMP, MG, PHOS, CBC #### [facility] [address] [place] [id number] USAVLDL LXZRWFZAWQN96 mg/dLNormalThe Atrium Health Physician GroupComment on above:Performed By: #### CMP, MG, PHOS, CBC #### [facility] [address] [place] [id number] USALymphocytes Auto (Bld) [#/Vol]Ordered By: Nataliya Jane on 65-81-3834Atsylkqhwrd (Bld) [#/Vol]Lymphocytes [#/volume] in Blood by Automated count1.00-4.8Firelands Regional Medical CenterLymphocytes/100 WBC Auto (Bld) Ordered By: Nataliya Gaonaoren on 41-47-4929Mdqvsbiyljc/100 WBC (Bld)Lymphocytes/100 leukocytes in Blood by Automated count.[facility] Auto (RBC) [Entitic mass]Ordered By: Nataliya Lucinda on 92-21-8644YIL (RBC) [Entitic mass]MCH [Entitic mass] by Automated count24.7-34.3FPremier Health Miami Valley Hospital NorthHC Auto (RBC) [Mass/Vol]Ordered By: Nataliya Lucinda on 35-12-2052FOVX (RBC) [Mass/Vol]MCHC [Mass/volume] by Automated count32.0-35.0[facility] Anne HospitalV Auto (RBC) [Entitic vol]Ordered By: Nataliya Lucinda on 80-32-6243KJD (RBC) [Entitic vol]MCV [Entitic volume] by Automated mwzyy01-067 [facility] HospitalMicroAlb Creat Ratio,Uon 13-49-5903Atfmnli DL <= 20 mg/L (U) [Mass/Vol]mg/dLNormal0.0-1.8The [facility] Health Physician GroupComment on above:Performed By: #### CMP, MG, PHOS, CBC #### [place] [address] USACreatinine, Urine (Random)65.00 mg/dLNormalThe Atrium Health Physician GroupComment on above:Result Comment: No reference range established Performed By: #### CMP, MG, PHOS, CBC #### [facility] [address] [place] [address] USAMicroalbumin/Creatinine RatioNot performedNormal0.0-30.0 The [facility] Health Physician GroupComment on above:Result Comment: PERFORMED BY: [place] [address] PATHOLOGIST CRYPTOZOOLOGIST LE MACE M.D.Performed By: #### CMP, MG, PHOS, CBC #### [place] [address] USAMicroalbumin [Mass/volume] in UrineOrdered By: Angelique Russell on 76-20-5398Xeophry DL <= 20 mg/L (U) [Mass/Vol]Microalbumin [Mass/volume] in Urine0.0-1.8Providence HospitalMonocytes Auto (Bld) [#/Vol]Ordered By: Nataliya Jane on 90-96-0762Jtxmulzkl (Bld) [#/Vol] Automated blood monocyte count0.0-0.8[facility] Monocytes/100 WBC Auto (Bld)Ordered By: Nataliya Jane on 18-81-9554Gczdakymt/100 WBC (Bld)Automated monocyte %.Providence HospitalNatriuretic peptide B [Mass/Vol]Ordered By: Roland Faust on 64-61-9472Hfrocjyrrlb peptide B (Bld) [Mass/Vol]BNP ser/plas5-100[facility] Neutrophils Auto (Bld) [#/Vol]Ordered By: Nataliya Jane on 44-03-7413Xuwmgulnfhr (Bld) [#/Vol]Neutrophils [#/volume] in Blood by Automated count1.8-7.7FWadsworth-Rittman HospitalNeutrophils/100 WBC Auto (Bld)Ordered By: Nataliya Jane on 98-60-7273Ltzxfnearwf/100 WBC (Bld)Automated neutrophil %.Providence HospitalNo Panel InformationOrdered By: Angelique Russell on 06-26-2024 Estimated GFR (CKD-EPI)> 60.0 mL/MinProvidence HospitalPharmacy Creatinine Clearance (ChemN/AFWadsworth-Rittman HospitalNo Panel InformationOrdered By: Nataliya Jane on 08-38-7797PZR/ablSee commentProvidence HospitalComment on above:See report. Scanned copy available in EMR.JAK2 N372SXwv Doctors HospitalComment on above:See report. Scanned copy available in EMR.Nucleated erythrocytes [Presence] in Blood by Automated countOrdered By: Nataliya Jane on 11-35-7651Bdhwkmioy RBC Auto Ql (Bld)Nucleated erythrocytes [Presence] in Blood by Automated count0-0.5FWadsworth-Rittman HospitalPlatelet mean volume Auto (Bld) [Entitic vol]Ordered By: Nataliya Jane on 81-67-3265Yewvmoac mean volume (Bld) [Entitic vol]Platelet mean volume [Entitic volume] in Blood by Automated count6.3-10.7FWadsworth-Rittman HospitalPlatelets Auto (Bld) [#/Vol]Ordered By: Nataliya Jane on 72-26-7960Ijzszxnwo (Bld) [#/Vol]Platelets [#/volume] in Blood by Automated hwnkpIuu686-304MptnhfpftProvidence HospitalPotassium [Moles/volume] in Serum or PlasmaOrdered By: Barbera Yvonne on 40-12-1766Efwhiudst [Moles/Vol] Potassium [Moles/volume] in Serum or Plasma3.5-5.1FWadsworth-Rittman HospitalProtein [Mass/volume] in Serum or PlasmaOrdered By: Barbera Yvonne on 61-26-4855Zwfmyae [Mass/Vol]Protein [Mass/volume] in Serum or Plasma6.4-8.9 Providence HospitalRBC Auto (Bld) [#/Vol]Ordered By: Nataliya Jane on 63-62-1678THL (Bld) [#/Vol]Erythrocytes [#/volume] in Blood by Automated count3.60-5.00UK Healthcareerum or plasma albumin/globulin mass ratioOrdered By: Barbera Mapus on 74-76-3681Spydyys/Globulin [Mass ratio] Serum or plasma albumin/globulin mass ratioProvidence Hospital Serum or plasma anion gap determinationOrdered By: Tondra Mapus on 06-26-2024 Anion gap [Moles/Vol]Serum or plasma anion gap determination6.0-15.0UK Healthcareerum or plasma total cholesterol/high density lipoprotein (HDL) cholesterol mass ratOrdered By: Tondra Mapus on 06-26-2024 Cholesterol.total/Cholesterol in HDL [Mass ratio]Serum or plasma total cholesterol/high density lipoprotein (HDL) cholesterol mass rat<5.0UK Healthcareodium [Moles/volume] in Serum or PlasmaOrdered By: Juliodra Mapus on 50-20-8357Snkecc [Moles/Vol]Sodium [Moles/volume] in Serum or Gjbtnf049-839WgjbuojvrProvidence HospitalThyroid Stim Hormone w/Rflxon 84-99-2450Xjvixmg Stim Hormone w/Rflx1.45 u[iU]/mLNormal0.45-5.33The [facility] Health Physician GroupComment on above:Result Comment: PERFORMED BY: [facility] [address] [place] [address] PATHOLOGIST CRYPTOZOOLOGIST LE MACE M.D.Performed By: #### CMP, MG, PHOS, CBC #### [facility] [address] [place] [address] USAThyrotropin [Units/volume] in Serum or PlasmaOrdered By: Angelique Russell on 89-21-2131AMK QnThyrotropin [Units/volume] in Serum or Plasma 0.45-5.33Providence HospitalTriglyceride [Mass/volume] in Serum or PlasmaOrdered By: Angelique Russell on 71-67-0201Rafnroafjwur [Mass/Vol]Triglyceride [Mass/volume] in Serum or PlasmaHigh0-149[facility] Comment on above:TRIG ATP III CLASSIFICATIONTRIG less than 150 mg/dL NormalTRIG 150-199 mg/dL Borderline highTRIG 200-500 mg/dL High TRIG greater than 500 mg/dL Very highStandard traceable to the Center for Disease Conrtrol and Prevention (CDC) test method.Urea nitrogen [Mass/volume] in Serum or PlasmaOrdered By: Angelique Russell on 00-59-4824Ksoo nitrogen [Mass/Vol]Urea nitrogen [Mass/volume] in Serum or Plasma7-25Providence HospitalUrine microalbumin/creatinine mass ratioOrdered By: Angelique Russell on 06-26-2024 Albumin/Creatinine DL <= 20 mg/L (U) [Mass ratio]Urine microalbumin/creatinine mass ratioProvidence HospitalComment on above:Test not performed WBC Auto (Bld) [#/Vol]Ordered By: Nataliya Jane on 62-93-5096LDF (Bld) [#/Vol] Leukocytes [#/volume] in Blood by Automated count3.8-11.6FWadsworth-Rittman HospitalMR head/brain wo/w conon 76-88-3213RU head/brain wo/w [facility] [place] [address] [place] [address] MRI Report Signed Patient: Taye Gay MR#: [id number] 19 : 1955 Acct:[id number] Age/Sex: 68 / F ADM Date: 05/25/24 Loc: MR Room: Type: [facility] Attending Dr: Sandra Keita DO Copies [...] Eugenio Lazo M.D.05/25/2024 7:59 PM Dictation Location: [place] [address] Transcribed By: [facility] 05/25/241958 Dictated By: Eugenio Lazo DO 05/25/241953 Signed By: 05/25/241958[facility] Physician GroupPhoenix Memorial Hospitaletic resonance imaging reportOrdered By: Eugenio Lazo on 73-20-5670Wxlvm reportOHIOHEALTH BER[facility] [place] [address] [place], [place] [id number] MRI Report Signed Patient: Taye Gay MR#: [id number] : 1955 Acct:[id number] Age/Sex: 68 / F ADM Date: 5 Loc: MR Room: Type: [facility] Attending Dr: Sandra Keita DO Copies [...] Eugenio Lazo M.D.05/25/2024 7:59 PM Dictation Location: [place] [address] Transcribed By: [facility] 05/25/241958 Dictated By: Eugenio Lazo DO 05/25/241953 Signed By: 05/25/241958 Providence HospitalAlanine aminotransferase [Enzymatic activity/volume] in Serum or PlasmaOrdered By: Priscilla Lang on 77-65-0849IGQ [Catalytic activity/Vol]Alanine aminotransferase [Enzymatic activity/volume] in Serum or Plasma7-Providence HospitalAlbumin [Mass/volume] in Serum or Plasma by Bromocresol green (BCG) dye binding methoOrdered By: Priscilla Lang on 05-43-7147Uudlqnr BCG dye [Mass/Vol]Albumin [Mass/volume] in Serum or Plasma by Bromocresol green (BCG) dye binding metho3.5-5.7FWadsworth-Rittman HospitalAlkaline phosphatase [Enzymatic activity/volume] in Serum or PlasmaOrdered By: Priscilla Lang on 41-45-2211JPC [Catalytic activity/Vol] Alkaline phosphatase [Enzymatic activity/volume] in Serum or Crawkq09-886 Providence HospitalAspartate aminotransferase [Enzymatic activity/volume] in Serum or PlasmaOrdered By: Priscilla Lang on 47-76-2509ATR [Catalytic activity/Vol]Aspartate aminotransferase [Enzymatic activity/volume] in Serum or Thwaxk66-12CbxhjszwjProvidence HospitalBasophils Auto (Bld) [#/Vol]Ordered By: Priscilla Lang on 67-79-1434Wvtrjmrrb (Bld) [#/Vol]Automated basophil count0.0-0.2FWadsworth-Rittman HospitalBasophils/100 WBC Auto (Bld)Ordered By: Priscilla Lang on 85-82-7957Neinvdgxh/100 WBC (Bld)Automated basophil %.Providence HospitalBilirubin.total [Mass/volume] in Serum or PlasmaOrdered By: Priscilla Lang on 06-77-7702Ceemitdtq [Mass/Vol] Bilirubin.total [Mass/volume] in Serum or Plasma0.3-1.0Providence HospitalCalcium [Mass/volume] in Serum or PlasmaOrdered By: Priscilla Lang on 28-58-1754Afdyaec [Mass/Vol]Calcium [Mass/volume] in Serum or Plasma8.6-10.3 Providence HospitalCarbon dioxide, total [Moles/volume] in Serum or PlasmaOrdered By: Priscilla Lang on 86-96-3243YY6 [Moles/Vol]Carbon dioxide, total [Moles/volume] in Serum or Buznpj26.0-31.0Providence HospitalChloride [Moles/volume] in Serum or PlasmaOrdered By: Priscilla Lang on 16-94-7860Mebzqvyp [Moles/Vol]Chloride [Moles/volume] in Serum or Qyumoj08-368 Providence HospitalComplete Blood Count Auto Diffon 04-30-2024 Basophils (Bld) [#/Vol]0.0 10*3/uLNormal0.0-0.2The [facility] Comment on above:Result Comment: PERFORMED BY: [facility] [address] [place] [address] PATHOLOGIST CRYPTOZOOLOGIST EL MACE M.D.Performed By: #### CMP, MG, PHOS, CBC #### [place] [address] USABasophils/100 WBC (Bld)0.4 %Normal.The [facility] Health Physician GroupComment on above:Performed By: #### CMP, MG, PHOS, CBC #### [place] [address] USAEosinophils (Bld) [#/Vol]0.2 10*3/uLNormal0.0-0.45The [facility]rium Health Physician GroupComment on above:Performed By: #### CMP, MG, PHOS, CBC #### [place] [address] USAEosinophils/100 WBC (Bld)2.9 %Normal.The [facility] Health Physician GroupComment on above:Performed By: #### CMP, MG, PHOS, CBC #### [place] [address] USAErythrocyte distribution width (RBC) [Ratio]15.4 %High 11.9-15.3The Atrium Health Physician GroupComment on above:Performed By: #### CMP, MG, PHOS, CBC #### [place] [address] USAHematocrit (Bld) [Volume fraction]44.3 %Jomxfc27.0-46.4The [facility] Health Physician GroupComment on above:Performed By: #### CMP, MG, PHOS, CBC #### [place] [address] USAHemoglobin (Bld) [Mass/Vol]14.7 g/bNNiebxw27.8-15.4The [facility] Health Physician GroupComment on above:Performed By: #### CMP, MG, PHOS, CBC #### [place] [address] USALymphocytes (Bld) [#/Vol]1.8 10*3/uLNormal1.00-4.8The [facility] Health Physician GroupComment on above:Performed By: #### CMP, MG, PHOS, CBC #### [place] [address] USALymphocytes/100 WBC (Bld)24.9 %Normal.The [facility] Health Physician GroupComment on above:Performed By: #### CMP, MG, PHOS, CBC #### [address] (RBC) [Entitic mass]31.4 alXtcfbl61.7-34.3The Atrium Health Physician GroupComment on above:Performed By: #### CMP, MG, PHOS, CBC #### [address] (RBC) [Entitic vol]94.4 iKVatjtv52-427Kan [facility] Health Physician GroupComment on above:Performed By: #### CMP, MG, PHOS, CBC #### [place] [address] USAMean Corpuscular HGB Conc33.3 g/eVZmlvlh17.0-35.0The [facility] Health Physician GroupComment on above:Performed By: #### CMP, MG, PHOS, CBC #### [place] [address] USAMonocytes (Bld) [#/Vol]0.6 10*3/uLNormal0.0-0.8The [facility] Health Physician GroupComment on above:Performed By: #### CMP, MG, PHOS, CBC #### [place] [address] USAMonocytes/100 WBC (Bld)8.3 %Normal.The [facility] Health Physician GroupComment on above:Performed By: #### CMP, MG, PHOS, CBC #### [place] [address] USANeutrophils (Bld) [#/Vol]4.6 10*3/uLNormal1.8-7.7The [facility] Health Physician GroupComment on above:Performed By: #### CMP, MG, PHOS, CBC #### [place] [address] USANeutrophils/100 WBC (Bld)63.5 %Normal.The [facility] Health Physician GroupComment on above:Performed By: #### CMP, MG, PHOS, CBC #### [facility] [address] [place] [address] USANRBC%0.0 /100{WBC}Normal0-0.5The [facility] Comment on above:Performed By: #### CMP, MG, PHOS, CBC #### [place] [address] USAPlatelet mean volume (Bld) [Entitic vol]9.5 fLNormal 6.3-10.7The [facility] Health Physician GroupComment on above:Performed By: #### CMP, MG, PHOS, CBC #### [place] [address] USAPlatelets (Bld) [#/Vol]119 10*3/rSSgq462-480Yeh [facility] Health Physician GroupComment on above:Performed By: #### CMP, MG, PHOS, CBC #### [place] [address] USARBC (Bld) [#/Vol]4.70 10*6/uLNormal3.60-5.00The [facility] Health Physician GroupComment on above:Performed By: #### CMP, MG, PHOS, CBC #### [place] [address] USAWBC (Bld) [#/Vol]7.3 10*3/uLNormal3.8-11.6The [facility] Health Physician GroupComment on above:Performed By: #### CMP, MG, PHOS, CBC #### [place] [address] USAComprehensive Metabolic Panelon 98-31-2327Szxdvqx [Mass/Vol]3.5 g/dLNormal3.5-5.7The [facility] Health Physician GroupComment on above: Performed By: #### CMP, MG, PHOS, CBC #### [facility] [address] [place] [address] USAAlbumin/Globulin [Mass ratio]1.2 {ratio}NormalThe Atrium Health Physician GroupComment on above:Performed By: #### CMP, MG, PHOS, CBC #### [facility] [address] [place] [address] USAALP [Catalytic activity/Vol]85 U/PMlwfpv96-912Nas [facility] Physician GroupComment on above:Performed By: #### CMP, MG, PHOS, CBC #### [facility] [address] [place] [address] USAALT [Catalytic activity/Vol]16 U/LNormal7-52The [facility] Health Physician GroupComment on above:Performed By: #### CMP, MG, PHOS, CBC #### [facility] [address] [place] [address] USAAnion gap [Moles/Vol]10.9 mmol/LNormal6.0-15.0The [facility] Health Physician GroupComment on above:Performed By: #### CMP, MG, PHOS, CBC #### [facility] [address] [place] [address] USAAST [Catalytic activity/Vol]23 U/BRofafw64-93Uow [facility] Physician GroupComment on above:Performed By: #### CMP, MG, PHOS, CBC #### [facility] [address] [place] [address] USABilirubin [Mass/Vol]0.5 mg/dLNormal0.3-1.0The [facility] Health Physician GroupComment on above:Performed By: #### CMP, MG, PHOS, CBC #### [facility] [address] [place] [address] USACalcium [Mass/Vol]9.3 mg/dLNormal8.6-10.3The [facility] Health Physician GroupComment on above:Performed By: #### CMP, MG, PHOS, CBC #### [facility] [address] [place] [address] USAChloride [Moles/Vol]106 mmol/SVumiqw26-425Ykl [facility] Physician GroupComment on above:Performed By: #### CMP, MG, PHOS, CBC #### [facility] [address] [place] [address] USACO2 [Moles/Vol]26.9 mmol/QPkcllx96.0-31.0[facility] Physician GroupComment on above:Performed By: #### CMP, MG, PHOS, CBC #### [facility] [address] [place] [address] USACreatinine [Mass/Vol]0.80 mg/dLNormal0.60-1.20The [facility] Health Physician GroupComment on above:Performed By: #### CMP, MG, PHOS, CBC #### [facility] [address] [place] [address] USACreatinine Clr Calc Eolekaee98.38NoCrawley Memorial Hospital Physician GroupComment on above:Performed By: #### CMP, MG, PHOS, CBC #### [place] [address] USAGFR/1.73 sq M.predicted MDRD (S/P/Bld) [Vol rate/Area] mL/min/{1.73_m2}NormalThe Atrium Health Physician GroupComment on above:Performed By: #### CMP, MG, PHOS, CBC #### [place] [address] USAGlobulin (S) [Mass/Vol]2.9 g/dLNoCrawley Memorial Hospital Physician GroupComment on above:Performed By: #### CMP, MG, PHOS, CBC #### [place] [address] USAGlucose [Mass/Vol]130 mg/kMYxmx74-072Jrp [facility]lands Physician GroupComment on above:Result Comment: Random Glucose Reference Range is dependent on time and content of last meal. Glucose of more than 200 mg/dL in a nonstressed, ambulatory subject supports the diagnosis of Diabetes Mellitus. ADA recommended reference rangePerformed By: #### CMP, MG, PHOS, CBC #### [place] [address] USAPotassium [Moles/Vol]3.8 mmol/LNormal3.5-5.1The [facility] Health Physician GroupComment on above:Performed By: #### CMP, MG, PHOS, CBC #### [facility] [address] [place] [address] USAProtein [Mass/Vol]6.4 g/dLNormal6.4-8.9The [facility] Health Physician GroupComment on above:Performed By: #### CMP, MG, PHOS, CBC #### [facility] [address] [place] [address] USASodium [Moles/Vol]140 mmol/LFtubnr724-881Edw [facility] Health Physician GroupComment on above:Performed By: #### CMP, MG, PHOS, CBC #### [facility] [address] [place] [address] USAUrea nitrogen [Mass/Vol]9 mg/dLNormal7-25The [facility] Health Physician GroupComment on above:Performed By: #### CMP, MG, PHOS, CBC #### [facility] [address] [place] [address] USACreatinine [Mass/volume] in Serum or PlasmaOrdered By: Priscilla Lang on 93-11-9454Jpjfhtwnqy [Mass/Vol]Creatinine [Mass/volume] in Serum or Plasma0.60-1.20Providence HospitalEosinophils Auto (Bld) [#/Vol]Ordered By: Priscilla Lang on 89-43-2346Wymaypvdhdm (Bld) [#/Vol]Automated eosinophil count0.0-0.45Providence HospitalEosinophils/100 WBC Auto (Bld)Ordered By: Priscilla Lang on 78-91-8273Bplxebdhlwr/100 WBC (Bld) Automated eosinophil %.Providence HospitalErythrocyte distribution width Auto (RBC) [Ratio]Ordered By: Priscilla Lang on 14-25-9880Yzyafexsrhq distribution width (RBC) [Ratio]Erythrocyte distribution width [Ratio] by Automated ipqwxPbam36.9-15.3FWadsworth-Rittman HospitalGlobulin Calc (S) [Mass/Vol]Ordered By: Priscilla Lang on 09-05-8863Xjieflle (S) [Mass/Vol]Serum globulin measurement by calculation (mass/volume)Providence HospitalGlucose Glucometer (BldC) [Mass/Vol]Ordered By: Priscilla Lang on 63-69-5193Kiajopx [Mass/Vol]Capillary blood glucose measurement by glucometer (mass/volume)Providence HospitalComment on above:Random Glucose Reference Range is dependent on time and content of last meal. Glucose of more than 200 mg/dL in a nonstressed, ambulatory subject supports the diagnosis of Diabetes Mellitus.Glucose Poct Glucometerson 68-81-9469Gcyqmav [Mass/Vol]154 mg/dLNoCrawley Memorial Hospital Physician GroupComment on above:Result Comment: Random Glucose Reference Range is dependent on time and content of last meal. Glucose of more than 200 mg/dL in a nonstressed, ambulatory subject supports the diagnosis of Diabetes Mellitus. PERFORMED BY: [place] [address] PATHOLOGIST CRYPTOZOOLOGIST LE MACE M.D.Performed By: #### CMP, MG, PHOS, CBC #### [facility] [address] [place] [address] USAGlucose [Mass/Vol]134 mg/dLNoCrawley Memorial Hospital Physician [facility] Regional HospitalComment on above:Result Comment: Random Glucose Reference Range is dependent on time and content of last meal. Glucose of more than 200 mg/dL in a nonstressed, ambulatory subject supports the diagnosis of Diabetes Mellitus. PERFORMED BY: [facility] [address] [place] [address] PATHOLOGIST CRYPTOZOOLOGIST LE MACE M.D.Performed By: #### CMP, MG, PHOS, CBC #### [facility] [address] [place] [address] USAGlucose [Mass/volume] in Serum or PlasmaOrdered By: Priscilla Lang on 80-94-0634Arqdmec [Mass/Vol]Glucose [Mass/volume] in Serum or Plasma Owoi53-101NujipdvitProvidence HospitalComment on above:ADA recommended reference rangeRandom Glucose Reference Range is dependent on time and content of last meal. Glucose of more than 200 mg/dL in a nonstressed, ambulatory subject supports the diagnosisof Diabetes Mellitus.Hematocrit Auto (Bld) [Volume fraction]Ordered By: Priscilla Lang on 51-07-6666Uzwlnknofv (Bld) [Volume fraction]Hematocrit [Volume Fraction] of Blood by Automated count34.0-46.4 Providence HospitalHemoglobin [Mass/volume] in BloodOrdered By: Priscilla Lang on 93-17-5948Kocsutafmi (Bld) [Mass/Vol]Hemoglobin [Mass/volume] in Blood11.8-15.4FWadsworth-Rittman HospitalLeukocytes [#/volume] corrected for nucleated erythrocytes in Blood by Automated counOrdered By: Priscilla Lang on 13-85-6121UJE corrected for nucl RBC Auto (Bld) [#/Vol]Leukocytes [#/volume] corrected for nucleated erythrocytes in Blood by Automated coun 3.8-11.6FWadsworth-Rittman HospitalLymphocytes Auto (Bld) [#/Vol]Ordered By: Priscilla Lang on 17-37-9797Zpwtpoweecu (Bld) [#/Vol]Lymphocytes [#/volume] in Blood by Automated count1.00-4.8[facility] Lymphocytes/100 WBC Auto (Bld)Ordered By: Priscilla Lang on 04-30-2024 Lymphocytes/100 WBC (Bld)Lymphocytes/100 leukocytes in Blood by Automated count. Providence HospitalMCH Auto (RBC) [Entitic mass]Ordered By: Priscilla Lang on 35-18-4915UYK (RBC) [Entitic mass]MCH [Entitic mass] by Automated count24.7-34.3FWadsworth-Rittman HospitalMCHC Auto (RBC) [Mass/Vol]Ordered By: Priscilla Lang on 52-79-2511ACGZ (RBC) [Mass/Vol]MCHC [Mass/volume] by Automated count32.0-35.0Prov[facility] HospitalMCV Auto (RBC) [Entitic vol]Ordered By: Priscilla Lang on 86-45-4885CLY (RBC) [Entitic vol]MCV [Entitic volume] by Automated volcw65-128ExidouejtProvidence HospitalMagnesiumon 88-53-8063Djkwxspwi [Mass/Vol]1.7 mg/dLLow1.9-2.7[facility] Comment on above:Result Comment: PERFORMED BY: [facility] [address] [id number] PATHOLOGIST CRYPTOZOOLOGIST LE MACE M.D.Performed By: #### CMP, MG, PHOS, CBC #### [facility] [address] [place] [address] USAMagnesium [Mass/volume] in Serum or PlasmaOrdered By: Priscilla Lang on 46-00-2587Abwetvxwy [Mass/Vol]Magnesium [Mass/volume] in Serum or PlasmaLow1.9-2.7FWadsworth-Rittman HospitalMonocytes Auto (Bld) [#/Vol] Ordered By: Priscilla Lang on 04-28-8106Nojvdhfkg (Bld) [#/Vol]Automated blood monocyte count0.0-0.8Providence HospitalMonocytes/100 WBC Auto (Bld)Ordered By: Priscilla Lang on 50-26-5298Ssavjupqr/100 WBC (Bld)Automated monocyte %.Providence HospitalNeutrophils Auto (Bld) [#/Vol] Ordered By: Priscilla Lang on 27-94-0332Mwtpvwvymmi (Bld) [#/Vol]Neutrophils [#/volume] in Blood by Automated count1.8-7.7FWadsworth-Rittman Hospital Neutrophils/100 WBC Auto (Bld)Ordered By: Priscilla Lang on 04-30-2024 Neutrophils/100 WBC (Bld)Automated neutrophil %.Providence HospitalNo Panel InformationOrdered By: Priscilla Lang on 30-35-7342Jmynhabwk GFR (CKD-EPI)> 60.0 mL/MinProvidence HospitalPharmacy Creatinine Clearance (Chem82.38Providence HospitalNucleated erythrocytes [Presence] in Blood by Automated countOrdered By: Priscilla Lang on 04-30-2024 Nucleated RBC Auto Ql (Bld)Nucleated erythrocytes [Presence] in Blood by Automated count0-0.5FWadsworth-Rittman HospitalPhosphate [Mass/volume] in Serum or PlasmaOrdered By: Priscilla Lang on 46-76-5154Hlqxhociz [Mass/Vol] Phosphate [Mass/volume] in Serum or Plasma2.5-4.5FWadsworth-Rittman HospitalPhosphoruson 14-26-9948Imnvrqdrb [Mass/Vol]2.9 mg/dLNormal2.5-4.5The [facility] Health Physician GroupComment on above:Performed By: #### CMP, MG, PHOS, CBC #### [facility] [address] [place] [address] USAPlatelet mean volume Auto (Bld) [Entitic vol]Ordered By: Priscilla Lang on 01-64-5253Ummwopch mean volume (Bld) [Entitic vol]Platelet mean volume [Entitic volume] in Blood by Automated count6.3-10.7FWadsworth-Rittman HospitalPlatelets Auto (Bld) [#/Vol]Ordered By: Priscilla Lang on 26-43-6416Laqheyqzw (Bld) [#/Vol]Platelets [#/volume] in Blood by Automated jkitoVsl597-863JpidphvjhProvidence HospitalPotassium [Moles/volume] in Serum or PlasmaOrdered By: Priscilla Lang on 76-24-1405Knnimxnhv [Moles/Vol] Potassium [Moles/volume] in Serum or Plasma3.5-5.1FWadsworth-Rittman HospitalProtein [Mass/volume] in Serum or PlasmaOrdered By: Priscilla Lang on 80-70-7919Qkteoau [Mass/Vol]Protein [Mass/volume] in Serum or Plasma6.4-8.9 Providence HospitalRBC Auto (Bld) [#/Vol]Ordered By: Priscilla Lang on 20-32-7716ZUM (Bld) [#/Vol]Erythrocytes [#/volume] in Blood by Automated count3.60-5.00UK Healthcareerum or plasma albumin/globulin mass ratioOrdered By: Priscilla Lang on 65-45-1780Rpmxnru/Globulin [Mass ratio] Serum or plasma albumin/globulin mass ratioProvidence Hospital Serum or plasma anion gap determinationOrdered By: Priscilla Lang on 04-30-2024 Anion gap [Moles/Vol]Serum or plasma anion gap determination6.0-15.0UK Healthcareodium [Moles/volume] in Serum or PlasmaOrdered By: Priscilla Lang on 40-74-8020Ldfbbk [Moles/Vol]Sodium [Moles/volume] in Serum or Plasma 136-145Providence HospitalUrea nitrogen [Mass/volume] in Serum or PlasmaOrdered By: Priscilla Lang on 69-79-1544Sqxj nitrogen [Mass/Vol]Urea nitrogen [Mass/volume] in Serum or Plasma7-25[facility] WBC Auto (Bld) [#/Vol]Ordered By: Priscilla Lang on 29-92-1120LSF (Bld) [#/Vol] Leukocytes [#/volume] in Blood by Automated count3.8-11.6FWadsworth-Rittman HospitalAmphetamine Screen Ql (U)Ordered By: Priscilla Lang on 04-29-2024 Amphetamines Ql (U)Amphetamines screenNegativeProvidence Hospital Barbiturates [Presence] in Urine by Screen methodOrdered By: Priscilla Lang on 70-15-9506Njvpgkptnycy Screen Ql (U)Barbiturates [Presence] in Urine by Screen methodNegativeProvidence HospitalBasic Metabolic Panelon 32-95-0387Qlysv gap [Moles/Vol]11.3 mmol/LNormal6.0-15.0The [facility] Health Physician GroupComment on above:Order Comment: FASTING NPerformed By: #### CMP, MG, PHOS, CBC #### [facility] [address] [place] [address] USACalcium [Mass/Vol]8.9 mg/dLNormal8.6-10.3The At[facility] Health Physician GroupComment on above:Order Comment: FASTING NPerformed By: #### CMP, MG, PHOS, CBC #### [facility] [address] [place] [id number] USAChloride [Moles/Vol]106 mmol/TTsdwve73-149Avz [facility] Health Physician GroupComment on above:Order Comment: FASTING NPerformed By: #### CMP, MG, PHOS, CBC #### [facility] [address] [place] [address] USACO2 [Moles/Vol]25.2 mmol/AQmeeuv66.0-31.0The [facility] Health Physician GroupComment on above:Order Comment: FASTING NPerformed By: #### CMP, MG, PHOS, CBC #### [facility] [address] [place] [address] USACreatinine [Mass/Vol]0.85 mg/dLNormal0.60-1.20The [facility] Health Physician GroupComment on above:Order Comment: FASTING NPerformed By: #### CMP, MG, PHOS, CBC #### [facility] [address] [place] [address] USACreatinine Clr Calc Wnmadovw14.21NormalThe Atrium Health Physician GroupComment on above:Order Comment: FASTING NPerformed By: #### CMP, MG, PHOS, CBC #### [place] [address] USAGFR/1.73 sq M.predicted MDRD (S/P/Bld) [Vol rate/Area] mL/min/{1.73_m2}NormalThe Atrium Health Physician GroupComment on above:Order Comment: FASTING NPerformed By: #### CMP, MG, PHOS, CBC #### [place] [address] USAGlucose [Mass/Vol]206 mg/zMNjdf10-327Wia [facility] Physician GroupComment on above:Order Comment: FASTING NResult Comment: Random Glucose Reference Range is dependent on time and content of last meal. Glucose of more than 200 mg/dL in a nonstressed, ambulatory subject supports the diagnosis of Diabetes Mellitus. ADA recommended reference rangePerformed By: #### CMP, MG, PHOS, CBC #### [place] [address] USAPotassium [Moles/Vol]3.5 mmol/LNormal3.5-5.1The [facility] Health Physician GroupComment on above:Order Comment: FASTING NPerformed By: #### CMP, MG, PHOS, CBC #### [address] [place] [address] USASodium [Moles/Vol]139 mmol/EDyeysv534-678Qlo [facility] Physician GroupComment on above:Order Comment: FASTING NPerformed By: #### CMP, MG, PHOS, CBC #### [facility] [address] [id number] USAUrea nitrogen [Mass/Vol]9 mg/dLNormal7-25The [facility] Health Physician GroupComment on above:Order Comment: FASTING NPerformed By: #### CMP, MG, PHOS, CBC #### [facility] [address] [id number] USABenzodiazepines Screen Ql (U)Ordered By: Priscilla Lang on 00-87-7508Qafnyonssxpgjnk Ql (U)Benzodiazepines [Presence] in Urine by Screen methodNegativeProvidence HospitalBenzoylecgonine [Presence] in Urine by Screen methodOrdered By: Priscilla Lang on 10-03-4695Bgyfkjjotcgbtll Screen Ql (U)Benzoylecgonine [Presence] in Urine by Screen methodNegative Providence HospitalCannabinoids [Presence] in Urine by Screen methodOrdered By: Priscilla Lang on 38-63-3446Jdupaxweyquf Screen Ql (U) Cannabinoids [Presence] in Urine by Screen methodNegativeProvidence HospitalComment on above:These are unconfirmed results and should not be used for legal purposes. Drug Cut-Off Concentration: AMPH 1000 ng/mL KENDRICK 200 ng/mL HEATHER 200 ng/mL COCM 300 ng/mL OP 300 ng/mL PCP 25 ng/mL THC 20 ng/mL Cholesterol [Mass/volume] in Serum or PlasmaOrdered By: Jori Hearn on 10-48-7609Fpxgodoqlek [Mass/Vol]Cholesterol [Mass/volume] in Serum or PlasmaLow 140-200Providence HospitalComment on above:Chol less than 200 mg/dl low riskChol 201-239 mg/dl borderline riskChol 240 mg/dl and greater high riskCholesterol in HDL [Mass/volume] in Serum or PlasmaOrdered By: Jori Hearn on 74-73-1237Liufffqbogm in HDL [Mass/Vol]Serum or plasma high density lipoprotein (HDL) cholesterol zqxcsgcyago33-54VaxytwvogProvidence Hospital Comment on above:HDL CHOL ATP-III CLASSIFICATION Cardiovascular RiskHDL > or equal to 60 mg/dL LOWHDL < 40 mg/dL HIGHCholesterol in LDL Calc [Mass/Vol] Ordered By: Jori Hearn on 43-66-7441Blbqmuuorcy in LDL [Mass/Vol]Cholesterol in LDL [Mass/volume] in Serum or Plasma by calculationProvidence HospitalComment on above:LDL ATP III CLASSIFICATIONLDL less than 100 mg/dL OptimalLDL 100-129 mg/dL Near or above nvefqntUGV828-396 mg/dL Borderline highLDL 160-189 mg/dL HighLDL greater than 189 mg/dL Very highCholesterol in VLDL Calc [Mass/Vol]Ordered By: Jori Hearn on 92-22-0618Botpszutomp in VLDL [Mass/Vol]Cholesterol in VLDL [Mass/volume] in Serum or Plasma by calculation Providence HospitalDrug Screen,Urineon 68-83-7462Xaoigaoyllm Screen,UrineNegativeNormalNegativeThe Atrium Health Physician GroupComment on above: Performed By: #### CMP, MG, PHOS, CBC #### [facility] [address] [place] [address] USABarbiturate Screen,UrineNegativeNormalNegativeThe Atrium Health Physician GroupComment on above:Performed By: #### CMP, MG, PHOS, CBC #### [facility] [address] [place] [address] USABenzodiazepines Screen,UrineNegativeNormalNegativeThe Atrium Health Physician GroupComment on above:Performed By: #### CMP, MG, PHOS, CBC #### [facility] [address] [place] [phone] USACannabinoid Screen,UrineNegativeNormalNegativeThe Atrium Health Physician GroupComment on above:Result Comment: These are unconfirmed results and should not be used for legal purposes. Drug Cut-Off Concentration: AMPH 1000 ng/mL KENDRICK 200 ng/mL HEATHER 200 ng/mL COCM 300 ng/mL OP 300 ng/mL PCP 25 ng/mL THC 20 ng/mL PERFORMED BY: [place] [address] PATHOLOGIST CRYPTOZOOLOGIST LE MACE M.D.Performed By: #### CMP, MG, PHOS, CBC #### [place] [address] USACocaine Screen,UrineNegativeNormalNegativeMemorial Regional Hospital South Physician GroupComment on above:Performed By: #### CMP, MG, PHOS, CBC #### [place] [address] USAOpiate Screen,UrineNegativeNormalNegativeMemorial Regional Hospital South Physician GroupComment on above:Performed By: #### CMP, MG, PHOS, CBC #### [place] [address] USAPhencyclidine Screen,UrineNegativeNormalNegativeMemorial Regional Hospital South Physician GroupComment on above:Performed By: #### CMP, MG, PHOS, CBC #### [place] [address] USAGlucose Poct Glucometerson 43-59-6365Cqeixzl [Mass/Vol]165 mg/dLNoCrawley Memorial Hospital Physician Trace Regional HospitalComment on above:Result Comment: Random Glucose Reference Range is dependent on time and content of last meal. Glucose of more than 200 mg/dL in a nonstressed, ambulatory subject supports the diagnosis of Diabetes Mellitus. PERFORMED BY: [place] [address] PATHOLOGIST CRYPTOZOOLOGIST LE MACE M.D.Performed By: #### CMP, MG, PHOS, CBC #### [place] [address] NLDUxffrbe9Qjy4: Cleaned MeterNoCrawley Memorial Hospital Physician Trace Regional HospitalComment on above:Result Comment: PERFORMED BY: [place] [address] PATHOLOGIST CRYPTOZOOLOGIST LE MACE M.D.Performed By: #### GLULS #### Point of Care testing ,Glucose [Mass/Vol]188 mg/dLAdventHealth Fish Memorial Physician GroupComment on above: Result Comment: Random Glucose Reference Range is dependent on time and content of last meal. Glucose of more than 200 mg/dL in a nonstressed, ambulatory subject supports the diagnosis of Diabetes Mellitus.Performed By: #### GLULS #### Point of Care testing ,Vgafdcw1Jvm4: Cleaned MeterNoCrawley Memorial Hospital Physician GroupComment on above: Result Comment: PERFORMED BY: [place] [address] PATHOLOGIST CRYPTOZOOLOGIST LE MACE M.D.Performed By: #### CMP, MG, PHOS, CBC #### [place] [address] USAGlucose [Mass/Vol]192 mg/dLAdventHealth Fish Memorial Physician GroupComment on above:Result Comment: Random Glucose Reference Range is dependent on time and content of last meal. Glucose of more than 200 mg/dL in a nonstressed, ambulatory subject supports the diagnosis of Diabetes Mellitus.Performed By: #### CMP, MG, PHOS, CBC #### [place] [address] USAGlucose [Mass/Vol]210 mg/dLNoCrawley Memorial Hospital Physician GroupComment on above:Result Comment: Random Glucose Reference Range is dependent on time and content of last meal. Glucose of more than 200 mg/dL in a nonstressed, ambulatory subject supports the diagnosis of Diabetes Mellitus. PERFORMED BY: [place] [address] PATHOLOGIST CRYPTOZOOLOGIST LE MACE M.D.Performed By: #### CMP, MG, PHOS, CBC #### [place] [address] USALipid Panelon 64-94-7128Drlhsuhfvuk [Mass/Vol]106 mg/dLLow 140-200The [facility] Health Physician GroupComment on above:Order Comment: FASTING N Result Comment: Chol less than 200 mg/dl low risk Chol 201-239 mg/dl borderline risk Chol 240 mg/dl and greater high riskPerformed By: #### CMP, MG, PHOS, CBC #### [facility] [address] [place] [address] USACholesterol in HDL [Mass/Vol]31 mg/mTUczayf67-26Jpi [facility] Physician GroupComment on above:Order Comment: FASTING NResult Comment: HDL CHOL ATP-III CLASSIFICATION Cardiovascular Risk HDL > or equal to 60 mg/dL LOW HDL < 40 mg/dL HIGHPerformed By: #### CMP, MG, PHOS, CBC #### [facility] [address] [place] [address] USACholesterol.total/Cholesterol in HDL [Mass ratio]3.4 {ratio}Normal<5.0The [facility] Health Physician GroupComment on above:Order Comment: FASTING NResult Comment: PERFORMED BY: [place] [address] PATHOLOGIST CRYPTOZOOLOGIST LE MACE M.D.Performed By: #### CMP, MG, PHOS, CBC #### [place] [id number] USALDL Cholesterol,Hxcijrkmsg01 mg/dLNormal0-100The [facility] Health Physician GroupComment on above:Order Comment: FASTING NResult Comment: LDL ATP III CLASSIFICATION LDL less than 100 mg/dL Optimal LDL 100-129 mg/dL Near or above optimal LDL 130-159 mg/dL Borderline high LDL 160-189 mg/dL High LDL greater than 189 mg/dL Very highPerformed By: #### CMP, MG, PHOS, CBC #### [facility] [address] [place] [id number] USATriglyceride w/Pweeqv532 mg/dLHigh0-149The [facility] Health Physician GroupComment on above:Order Comment: FASTING NResult Comment: TRIG ATP III CLASSIFICATION TRIG less than 150 mg/dL Normal TRIG 150-199 mg/dL Borderline high TRIG 200-500 mg/dL High TRIG greater than 500 mg/dL Very high Standard traceable to the Center for Disease Conrtrol and Prevention (CDC) test method.Performed By: #### CMP, MG, PHOS, CBC #### [facility] [address] [phone] USAVLDL GEBEHXDGFEK22 mg/dLNormHCA Florida Trinity Hospital Physician GroupComment on above:Order Comment: FASTING NPerformed By: #### CMP, MG, PHOS, CBC #### [facility] [address] [place] [address] USANo Panel InformationOrdered By: Priscilla Lang on 57-12-0659Rpyozgj Glucose CommentGlu2: cleaned meterProvidence HospitalOpiates [Presence] in Urine by Screen methodOrdered By: Priscilla Lang on 72-37-1291Czatole Screen Ql (U)Opiates [Presence] in Urine by Screen method NegativeProvidence HospitalPhencyclidine Screen Ql (U)Ordered By: Priscilla Lang on 51-80-0940Kpzddwnnumxfw Ql (U)Phencyclidine [Presence] in Urine by Screen methodNegativeUK Healthcareerum or plasma total cholesterol/high density lipoprotein (HDL) cholesterol mass ratOrdered By: Jori Hearn on 47-21-4901Pxcbteksxdq.total/Cholesterol in HDL [Mass ratio] Serum or plasma total cholesterol/high density lipoprotein (HDL) cholesterol mass rat<5.0Providence HospitalTriglyceride [Mass/volume] in Serum or PlasmaOrdered By: Jori Hearn on 11-15-6757Nijkeilsjirl [Mass/Vol] Triglyceride [Mass/volume] in Serum or PlasmaHigh0-149Providence HospitalComment on above:TRIG ATP III CLASSIFICATIONTRIG less than 150 mg/dL NormalTRIG 150-199 mg/dL Borderline highTRIG 200-500 mg/dL High TRIG greater than 500 mg/dL Very highStandard traceable to the Center for Disease Conrtrol and Prevention (CDC) test method.Urine Cultureon 91-57-4700Wopdmftb identified Cx Nom (U)15,000 colonies/ml mixed bacterial skin contaminants 2 Days PERFORMED BY: [place] [address] PATHOLOGIST CRYPTOZOOLOGIST LE MACE M.D.NormalThe Atrium Health Physician GroupComment on above: Performed By: #### CMP, MG, PHOS, CBC #### [facility] [address] [place] [address] USAUrine cultureOrdered By: Priscilla Lang on 04-29-2024 Bacteria identified Cx Nom (U)Urine cultureProvidence Hospital Bacteria identified Cx Nom (U)Urine cultureProvidence Hospital Alanine aminotransferase [Enzymatic activity/volume] in Serum or PlasmaOrdered By: Wesley Villafuerte on 36-63-0885VJD [Catalytic activity/Vol]Alanine aminotransferase [Enzymatic activity/volume] in Serum or Plasma7-52Providence HospitalAlbumin [Mass/volume] in Serum or Plasma by Bromocresol green (BCG) dye binding methoOrdered By: Wesley Villafuerte on 50-78-0956Jqdmtre BCG dye [Mass/Vol]Albumin [Mass/volume] in Serum or Plasma by Bromocresol green (BCG) dye binding metho3.5-5.7FWadsworth-Rittman HospitalAlkaline phosphatase [Enzymatic activity/volume] in Serum or PlasmaOrdered By: Wesley Villafuerte on 36-80-6546OCV [Catalytic activity/Vol]Alkaline phosphatase [Enzymatic activity/volume] in Serum or Hcahaz30-758MfgglividProvidence Hospital Anisocytosis LM Ql (Bld)Ordered By: Wesley Villafuerte on 96-08-5879Relrxqctyqxr Ql (Bld)Anisocytosis [Presence] in Blood by Light microscopyProvidence HospitalAppearance of UrineOrdered By: Wesley Villafuerte on 04-28-2024 Appearance (U)Urine appearanceCleAvita Health System Bucyrus HospitalAspartate aminotransferase [Enzymatic activity/volume] in Serum or PlasmaOrdered By: Wesley Villafuerte on 80-01-8682KHO [Catalytic activity/Vol]Aspartate aminotransferase [Enzymatic activity/volume] in Serum or Jkdunh92-49GyplkrkczProvidence HospitalB-Type Natriuretic Peptideon 21-97-6049Wojzuvvnwji peptide B (Bld) [Mass/Vol]25.0 pg/mLNormal5-100The [facility] Health Physician GroupComment on above: Result Comment: PERFORMED BY: [place] [address] PATHOLOGIST CRYPTOZOOLOGIST LE MACE M.D.Performed By: #### CMP, MG, PHOS, CBC #### [place] [address] USABacteria [Presence] in Urine by AutomatedOrdered By: Wesley Villafuerte on 27-57-7819Mqtpchoh Auto Ql (U)Bacteria [Presence] in Urine by AutomatedNone SeenProvidence HospitalBasophils Auto (Bld) [#/Vol] Ordered By: Wesley Villafuerte on 92-17-7587Hubejmrnd (Bld) [#/Vol]Automated basophil count0.0-0.2FWadsworth-Rittman HospitalBasophils/100 WBC Auto (Bld)Ordered By: Wesley Villafuerte on 75-90-9767Dwhgcphqu/100 WBC (Bld)Automated basophil %. Providence HospitalBilirubin Test strip Ql (U)Ordered By: Wesley Villafuerte on 54-19-2742Mnzvdctma Ql (U)Bilirubin.total [Presence] in Urine by Test stripNegativeProvidence HospitalBilirubin.total [Mass/volume] in Serum or PlasmaOrdered By: Wesley Villafuerte on 30-82-2568Brvhuhclz [Mass/Vol] Bilirubin.total [Mass/volume] in Serum or Plasma0.3-1.0Providence HospitalBioFire Not Detectedon 71-03-3230LjlEljv Not DetectedNot detected NormalNot DetecteThe Atrium Health Physician GroupComment on above:Result Comment: This is a duplicate RP2.1 COVID (PCR) result to be used for statistical tracking purpose only. PERFORMED BY: [place] [address] PATHOLOGIST CRYPTOZOOLOGIST LE MACE M.D.Performed By: #### CMP, MG, PHOS, CBC #### [place] [address] USACOVID-19 Detected/Not DetectedOrdered By: Wesley Villafuerte on 71-38-3407GDZQ-CoV-2 (COVID-19) RNA TEJINDER+non-probe Ql (Nph)Not detectedNot DetectOhio State University Wexner Medical CenterComment on above:This is a duplicate RP2.1 COVID (PCR) result to be used for statistical tracking purpose only.CT angio headon 08-58-9246HB angio headOHIOHEALTH BERGER [facility] [place] [address] [place] [address] CT Scan Report Signed Patient: Taye Gay MR#: [id number] 19 : 1955 Acct:[id number] Age/Sex: 68 / F ADM Date: 04/28/24 Loc: ER Room: Type: [facility] ER Attending Dr: Copies to: Wesley Villafuerte PA-C Ordering Provider: Wesley Villafuerte PA-C Date of Service: 04/28/24 CT/CT angio head: weakness ([id number]) CT/CT angio neck: weakness ([id number]) CT/CT head/brain wo con: weakness CT head/brain [...] Oz Bowling M.D.04/28/2024 9:44 PM Dictation Location: [place] [address] Transcribed By: AMY 04/28/242143 Dictated By: Oz Bowling II, MD 04/28/242129 Signed By: 04/28/242143NoCrawley Memorial Hospital Physician GroupCalcium [Mass/volume] in Serum or PlasmaOrdered By: Wesley Villafuerte on 52-97-6775Lzuzsvv [Mass/Vol]Calcium [Mass/volume] in Serum or Plasma8.6-10.3FWadsworth-Rittman HospitalCarbon dioxide, total [Moles/volume] in Serum or PlasmaOrdered By: Wesley Villafuerte on 97-01-2806BS7 [Moles/Vol]Carbon dioxide, total [Moles/volume] in Serum or Plasma 21.0-31.0Providence HospitalChloride [Moles/volume] in Serum or PlasmaOrdered By: Wesley Villafuerte on 56-29-2972Qruzists [Moles/Vol]Chloride [Moles/volume] in Serum or Qqzrtw62-843YafrgbtegProvidence HospitalColor Auto (U)Ordered By: Wesley Villafuerte on 56-55-5329Fcffu (U)Color of Urine by Auto YellowProvidence HospitalComprehensive Metabolic Panelon 50-95-9062Fesvflp [Mass/Vol]3.7 g/dLNormal3.5-5.7The [facility] Comment on above:Performed By: #### CMP, MG, PHOS, CBC #### [facility] [address] [place] [address] USAAlbumin/Globulin [Mass ratio]1.2 {ratio}NormalThe Atrium Health Physician GroupComment on above:Performed By: #### CMP, MG, PHOS, CBC #### [place] [address] USAALP [Catalytic activity/Vol]86 U/GFdodre99-811Ijn [facility] Physician GroupComment on above:Performed By: #### CMP, MG, PHOS, CBC #### [place] [address] USAALT [Catalytic activity/Vol]20 U/LNormal7-52The [facility] Health Physician GroupComment on above:Performed By: #### CMP, MG, PHOS, CBC #### [place] [address] USAAnion gap [Moles/Vol]12.7 mmol/LNormal6.0-15.0The [facility] Health Physician GroupComment on above:Performed By: #### CMP, MG, PHOS, CBC #### [place] [address] USAAST [Catalytic activity/Vol]25 U/XJmajxd28-11Oox [facility] Physician GroupComment on above:Performed By: #### CMP, MG, PHOS, CBC #### [place] [address] USABilirubin [Mass/Vol]0.3 mg/dLNormal0.3-1.0The [facility] Health Physician GroupComment on above:Performed By: #### CMP, MG, PHOS, CBC #### [place] [address] USACalcium [Mass/Vol]9.7 mg/dLNormal8.6-10.3The [facility] Health Physician GroupComment on above:Performed By: #### CMP, MG, PHOS, CBC #### [place] [address] USAChloride [Moles/Vol]104 mmol/YRwckqu91-045Sxm Atrium Health Physician GroupComment on above:Performed By: #### CMP, MG, PHOS, CBC #### [facility] [address] [place] [address] USACO2 [Moles/Vol]24.2 mmol/FOuzzbt65.0-31.0The Atrium Health Physician GroupComment on above:Performed By: #### CMP, MG, PHOS, CBC #### [facility] [address] [place] [address] USACreatinine [Mass/Vol]0.85 mg/dLNormal0.60-1.20The [facility]rium Health Physician GroupComment on above:Performed By: #### CMP, MG, PHOS, CBC #### [facility] [address] [place] [address] USACreatinine Clr Calc Lfsjnkuy39.21NormKettering Health Miamisburge Atrium Health Physician GroupComment on above:Performed By: #### CMP, MG, PHOS, CBC #### [place] [address] USAGFR/1.73 sq M.predicted MDRD (S/P/Bld) [Vol rate/Area] mL/min/{1.73_m2}NormalThe Atrium Health Physician GroupComment on above:Performed By: #### CMP, MG, PHOS, CBC #### [place] [address] USAGlobulin (S) [Mass/Vol]3.1 g/dLNormKettering Health Miamisburge [facility] Health Physician GroupComment on above:Performed By: #### CMP, MG, PHOS, CBC #### [place] [address] USAGlucose [Mass/Vol]231 mg/gSMtxa70-272Cmf [facility] Physician GroupComment on above:Result Comment: Random Glucose Reference Range is dependent on time and content of last meal. Glucose of more than 200 mg/dL in a nonstressed, ambulatory subject supports the diagnosis of Diabetes Mellitus. ADA recommended reference rangePerformed By: #### CMP, MG, PHOS, CBC #### [facility] [address] [place] [address] USAPotassium [Moles/Vol]3.9 mmol/LNormal3.5-5.1The [facility] Health Physician GroupComment on above:Result Comment: Hemolysis is present at a level that could interfere with the result. Contact lab if redraw is requiredPerformed By: #### CMP, MG, PHOS, CBC #### [facility] [address] [place] [id number] USAProtein [Mass/Vol]6.8 g/dLNormal6.4-8.9The At[facility] Health Physician GroupComment on above:Performed By: #### CMP, MG, PHOS, CBC #### [facility] [address] [place] [id number] USASodium [Moles/Vol]137 mmol/LOsvivz375-426Nlu [facility] Health Physician GroupComment on above:Performed By: #### CMP, MG, PHOS, CBC #### [facility] [address] [place] [address] USAUrea nitrogen [Mass/Vol]11 mg/dLNormal7-25The At[facility] Health Physician GroupComment on above:Performed By: #### CMP, MG, PHOS, CBC #### [facility] [address] [place] [phone] USACreatinine [Mass/volume] in Serum or PlasmaOrdered By: Wesley Villafuerte on 58-72-5023Mdtadvudel [Mass/Vol]Creatinine [Mass/volume] in Serum or Plasma0.60-1.20Providence HospitalDipstick and Microscopicon 28-23-3905Untoeubikq (U)ClearNormalClearThe Atrium Health Physician GroupComment on above:Order Comment: Name Collection Type:: Clean-Voided MidstreamPerformed By: #### ADDONUAPLUS #### [facility] [address] [place] [id number] USABacteria,UrineRareNormalNone SeenThe Atrium Health Physician GroupComment on above:Order Comment: Name Collection Type:: Clean-Voided MidstreamPerformed By: #### ADDONUAPLUS #### [facility] [address] [place] [phone] USABilirubin,UrineNegativeNormalNegativeThe Atrium Health Physician GroupComment on above:Order Comment: Name Collection Type:: Clean- Voided MidstreamPerformed By: #### ADDONUAPLUS #### [place] [address] USABudding Yeast,UrineRareHighNone SeenThe Atrium Health Physician GroupComment on above:Order Comment: Name Collection Type:: Clean- Voided MidstreamResult Comment: PERFORMED BY: [place] [address] PATHOLOGIST CRYPTOZOOLOGIST LE MACE M.D.Performed By: #### ADDONUAPLUS #### [place] [address] USAColor (U)Light-YellowNormalYellowThe Atrium Health Physician GroupComment on above:Order Comment: Name Collection Type:: Clean-Voided MidstreamPerformed By: #### ADDONUAPLUS #### [place] [address] USAGlucose Ql (U)>=HighNormalThCassia Regional Medical Center Physician Group Comment on above:Order Comment: Name Collection Type:: Clean-Voided Midstream Performed By: #### ADDONUAPLUS #### [place] [address] USAHyaline Casts,Urine0 [LPF]Normal0-8The [facility] Health Physician GroupComment on above:Order Comment: Name Collection Type:: Clean-Voided MidstreamPerformed By: #### ADDONUAPLUS #### [place] [address] USAKetones Ql (U)NegativeNormalNegativeMemorial Regional Hospital South Physician GroupComment on above:Order Comment: Name Collection Type:: Clean- Voided MidstreamPerformed By: #### ADDONUAPLUS #### [place] [address] USALeukocyte esterase Test strip Ql (U)NegativeNormalNegative [facility] Physician GroupComment on above:Order Comment: Name Collection Type:: Clean-Voided MidstreamPerformed By: #### ADDONUAPLUS #### [place] [address] USANitrite,UrineNegativeNormalNegativeThe Atrium Health Physician GroupComment on above:Order Comment: Name Collection Type:: Clean-Voided MidstreamPerformed By: #### ADDONUAPLUS #### [place] [address] USAOccult Blood,Urine2+HighNegativeThe Atrium Health Physician GroupComment on above:Order Comment: Name Collection Type:: Clean-Voided MidstreamResult Comment: PERFORMED BY: [place] [address] PATHOLOGIST CRYPTOZOOLOGIST LE MACE M.D.Performed By: #### ADDONUAPLUS #### [place] [address] USApH (U)5.5 [pH]Normal5.0-9.0The [facility] Comment on above:Order Comment: Name Collection Type:: Clean-Voided Midstream Performed By: #### ADDONUAPLUS #### [place] [address] USAProtein,UrineNegativeNormalNegativeThe Atrium Health Physician GroupComment on above:Order Comment: Name Collection Type:: Clean-Voided MidstreamPerformed By: #### ADDONUAPLUS #### [place] [address] USARBC,Urine10 [HPF]High0-4The [facility] Comment on above:Order Comment: Name Collection Type:: Clean-Voided Midstream Performed By: #### ADDONUAPLUS #### [place] [address] USASpecificy [place],Urine1.526Ftes1.001-1.030The At[facility] Health Physician GroupComment on above:Order Comment: Name Collection Type:: Clean- Voided MidstreamPerformed By: #### ADDONUAPLUS #### [place] [address] USASquamous Epithelial Cell,Urine3 [HPF]High0-2The [facility] Health Physician GroupComment on above:Order Comment: Name Collection Type:: Clean- Voided MidstreamPerformed By: #### ADDONUAPLUS #### [facility] [address] [place] [phone] USAUrobilinogen,UrineNormalNormalNormHCA Florida Trinity Hospital Physician GroupComment on above:Order Comment: Name Collection Type:: Clean- Voided MidstreamPerformed By: #### ADDONUAPLUS #### [facility] [address] [place] [address] USAWBC,Urine5 [HPF]High0-4The [facility] Comment on above:Order Comment: Name Collection Type:: Clean-Voided Midstream Performed By: #### ADDONUAPLUS #### [facility] [address] [place] [address] USAECG 12 lead ECGon 20-62-7071RWC 12 lead ECGOHIOHEALTH BERGER [facility] [place] [address] [place] [address] Electrocardiograph Report Signed Patient: Taye Gay MR#: [id number] [birth year] : 1955 Acct:[id number] Age/Sex: 68 / F ADM Date: 04/28/24 Loc: Room: [address] [place] [address] Type: ADM IN Attending Dr: Jori Hearn [...] MUS Signed By Jori Batista MD 05/23 0144[facility] Physician GroupEosinophils Auto (Bld) [#/Vol] Ordered By: Wesley Villafuerte on 79-54-4145Anzfjuknohm (Bld) [#/Vol]Automated eosinophil count0.0-0.45Providence HospitalEosinophils/100 WBC Auto (Bld)Ordered By: Wesley Villafuerte on 28-25-5333Tuxyeytcyas/100 WBC (Bld) Automated eosinophil %.Providence HospitalEpithelial cells.squamous [#/area] in Urine sediment by Automated countOrdered By: Wesley Villafuerte on 28-46-6830Vlvzqgcrdz cells.squamous Auto (Urine sed) [#/Area]Epithelial cells.squamous [#/area] in Urine sediment by Automated countHigh0-2FWadsworth-Rittman HospitalErythrocyte distribution width Auto (RBC) [Ratio]Ordered By: Wesley Villafuerte on 78-44-4699Akvaitfgnlq distribution width (RBC) [Ratio] Erythrocyte distribution width [Ratio] by Automated fbnjeDjbe86.9-15.3FWadsworth-Rittman HospitalErythrocyte morphology finding [Identifier] in Blood Ordered By: Wesley Villafuerte on 60-00-6070YJF morphology finding Nom (Bld)RBC morphologyProvidence HospitalErythrocytes [#/area] in Urine sediment by Automated countOrdered By: Wesley Villafuerte on 00-27-0692FKB Auto (Urine sed) [#/Area]Erythrocytes [#/area] in Urine sediment by Automated countHigh0-4 Providence HospitalGlobulin Calc (S) [Mass/Vol]Ordered By: Wesley Villafuerte on 60-60-1495Zqsehvev (S) [Mass/Vol]Serum globulin measurement by calculation (mass/volume)Providence HospitalGlucose [Mass/volume] in Serum or PlasmaOrdered By: Wesley Villafuerte on 34-08-2160Aiyhusb [Mass/Vol] Glucose [Mass/volume] in Serum or QgbkoeLbhz54-036HyrnqccyuProvidence HospitalComment on above:ADA recommended reference rangeRandom Glucose Reference Range is dependent on time and content of last meal. Glucose of more than 200 mg/dL in a nonstressed, ambulatory subject supports the diagnosisof Diabetes Mellitus.Glucose [Mass/volume] in Urine by Test stripOrdered By: Wesley Villafuerte on 97-10-7691Ytjpfwl Test strip (U) [Mass/Vol]Glucose [Mass/volume] in Urine by Test stripHighNormalProvidence HospitalHbA1c HPLC (Bld) [Mass fraction]on 98-70-8361BaQ4g (Bld) [Mass fraction]Hemoglobin A1c/Hemoglobin.total in Blood by HPLCProvidence HospitalHematocrit Auto (Bld) [Volume fraction]Ordered By: Wesley Villafuerte on 31-62-0126Srrxhbjgcr (Bld) [Volume fraction]Hematocrit [Volume Fraction] of Blood by Automated cypvkZryg62.0-46.4 Providence HospitalHemoglobin Test strip Ql (U)Ordered By: Wesley Villafuerte on 55-53-9570Dsqnkwpzim Ql (U)Hemoglobin [Presence] in Urine by Test strip HighNegativeProvidence HospitalHemoglobin [Mass/volume] in Blood Ordered By: Wesley Villafuerte on 32-65-0371Fqikllvodj (Bld) [Mass/Vol]Hemoglobin [Mass/volume] in JgpxwXsnh82.8-15.4FWadsworth-Rittman HospitalHyaline casts [#/area] in Urine sediment by Automated countOrdered By: Wesley Villafuerte on 32-85-9014Voclwhc casts Auto (Urine sed) [#/Area]Hyaline casts [#/area] in Urine sediment by Automated count0-8Providence HospitalINR in Platelet poor plasma by Coagulation assayOrdered By: Wesley Villafuerte on 96-74-2439DIR Coag (PPP) [Relative time]INR in Platelet poor plasma by Coagulation assayProvidence HospitalComment on above:INR Therapeutic Range A) Pre- and [...] strip Ql (U)Ordered By: Wesley Villafuerte on 85-85-8513Zdsnmjp Ql (U)Ketones [Presence] in Urine by Test stripNegativeProvidence HospitalLeukocyte esterase [Presence] in Urine by Test stripOrdered By: Wesley Villafuerte on 52-91-3754Xzkgaektr esterase Test strip Ql (U)Leukocyte esterase [Presence] in Urine by Test stripNegative Providence HospitalLeukocytes [#/area] in Urine sediment by Automated countOrdered By: Wesley Villafuerte on 44-13-0532KMU Auto (Urine sed) [#/Area]Leukocytes [#/area] in Urine sediment by Automated countHigh0-4FWadsworth-Rittman HospitalLeukocytes [#/volume] corrected for nucleated erythrocytes in Blood by Automated counOrdered By: Wesley Villafuerte on 46-99-2419QIO corrected for nucl RBC Auto (Bld) [#/Vol]Leukocytes [#/volume] corrected for nucleated erythrocytes in Blood by Automated coun3.8-11.6FWadsworth-Rittman HospitalLymphocytes Auto (Bld) [#/Vol]Ordered By: Wesley Villafuerte on 1957Lpxsuywmqlu (Bld) [#/Vol]Lymphocytes [#/volume] in Blood by Automated count1.00-4.8Providence HospitalLymphocytes/100 WBC Auto (Bld) Ordered By: Wesley Villafuerte on 00-22-3391Shmxyvoyeld/100 WBC (Bld)Lymphocytes/100 leukocytes in Blood by Automated count.[facility] HospitalH Auto (RBC) [Entitic mass]Ordered By: Wesley Villafuerte on 03-29-7371MDU (RBC) [Entitic mass]MCH [Entitic mass] by Automated count24.7-34.3FPremier Health Miami Valley Hospital NorthHC Auto (RBC) [Mass/Vol]Ordered By: Wesley Villafuerte on 60-74-7956UVGD (RBC) [Mass/Vol]MCHC [Mass/volume] by Automated count32.0-35.0Providence HospitalMCV Auto (RBC) [Entitic vol]Ordered By: Wesley Villafuerte on 04-28-2024 MCV (RBC) [Entitic vol]MCV [Entitic volume] by Automated kucet45-745UobfjrhqhProvidence HospitalMagnesiumon 28-34-2258Goiwzxdlr [Mass/Vol]1.7 mg/dLLow 1.9-2.7The Atrium Health Physician GroupComment on above:Result Comment: PERFORMED BY: [facility] [address] [place] [address] PATHOLOGIST CRYPTOZOOLOGIST LE MACE M.D.Performed By: #### CMP, MG, PHOS, CBC #### [facility] [address] [place] [address] USAMagnesium [Mass/volume] in Serum or PlasmaOrdered By: Wesley Villafuerte on 50-03-2429Jfzdvavev [Mass/Vol]Magnesium [Mass/volume] in Serum or PlasmaLow1.9-2.7FWadsworth-Rittman HospitalMonocyte distribution width [Entitic volume] in Blood by AutomatedOrdered By: Wesley Villafuerte on 04-28-2024 Monocyte distribution width Auto (Bld) [Entitic vol]Monocyte distribution width [Entitic volume] in Blood by AutomatedHigh0.00-20.00Providence HospitalComment on above:For adults in ED, MDW > 20.0 may be associated with a higher risk of sepsis during the first 12 hrs of hospital admissionMonocytes Auto (Bld) [#/Vol]Ordered By: Wesley Villafuerte on 30-65-3169Omczjxkga (Bld) [#/Vol] Automated blood monocyte count0.0-0.8[facility] Monocytes/100 WBC Auto (Bld)Ordered By: Wesley Villafuerte on 72-18-2561Edsrxvmez/100 WBC (Bld)Automated monocyte %.Providence HospitalNatriuretic peptide B [Mass/Vol]Ordered By: Wesley Villafuerte on 84-29-3726Hgbouiadiqz peptide B (Bld) [Mass/Vol]BNP ser/plas5-100Providence HospitalNeutrophils Auto (Bld) [#/Vol]Ordered By: Wesley Villafuerte on 74-45-8351Ywxxuzvsvnl (Bld) [#/Vol]Neutrophils [#/volume] in Blood by Automated count1.8-7.7FWadsworth-Rittman HospitalNeutrophils/100 WBC Auto (Bld)Ordered By: Wesley Villafuerte on 01-87-3756Glmwyhbyfja/100 WBC (Bld)Automated neutrophil %.Providence HospitalNitrite Test strip Ql (U)Ordered By: Wesley Villafuerte on 04-28-2024 Nitrite Ql (U)Nitrite [Presence] in Urine by Test stripNegativeProvidence HospitalNo Panel InformationOrdered By: Wesley Villafuerte on 42-57-0716Muejwzwed GFR (CKD-EPI)> 60.0 mL/MinProvidence Hospital Pharmacy Creatinine Clearance (Chem77.21Providence HospitalNo Panel Informationon 37-89-0866Djmwsid Euhlhys018VvetvzcccProvidence HospitalNucleated erythrocytes [Presence] in Blood by Automated countOrdered By: Wesley Villafuerte on 57-42-1677Hyujtnffc RBC Auto Ql (Bld)Nucleated erythrocytes [Presence] in Blood by Automated count0-0.5FWadsworth-Rittman Hospital Partial Thromboplastin Timeon 95-44-2520rIZP Coag (Bld) [Time]30.0 sNormal 25.1-36.5The Atrium Health Physician GroupComment on above:Result Comment: A hematocrit value greater than 55% may lead to inaccurate results in coagulation testing. Patients having hematocrit values >55% require a special collection tube for coagulation studies. Please contact the laboratory at [phone] for redraw instructions. PERFORMED BY: [facility] [address] [place] [address] PATHOLOGIST CRYPTOZOOLOGIST LE MACE M.D.Performed By: #### CMP, MG, PHOS, CBC #### [facility] [address] [place] [address] USAPlatelet adequacy [Presence] in Blood by Light microscopy Ordered By: Wesley Villafuerte on 65-78-3282Xytfymwqj LM Ql (Bld)Platelet adequacy [Presence] in Blood by Light microscopyNoWadsworth-Rittman Hospital Platelet mean volume Auto (Bld) [Entitic vol]Ordered By: Wesley Villafuerte on 91-91-2868Dbbqaams mean volume (Bld) [Entitic vol]Platelet mean volume [Entitic volume] in Blood by Automated count6.3-10.7FWadsworth-Rittman Hospital Platelet morphology finding [Identifier] in BloodOrdered By: Wesley Villafuerte on 19-48-1609Ksbdzgfe morphology finding Nom (Bld)Platelet morphology finding [Identifier] in BloodNoWadsworth-Rittman HospitalPlatelets Auto (Bld) [#/Vol]Ordered By: Wesley Villafuerte on 47-66-0491Zyuamjqpe (Bld) [#/Vol]Platelets [#/volume] in Blood by Automated sltbxUgl695-908OvwhuzlbaProvidence HospitalPolychromasia [Presence] in Blood by Light microscopyOrdered By: Wesley Villafuerte on 03-15-0684Auavhqjuazies LM Ql (Bld)Polychromasia [Presence] in Blood by Light microscopyProvidence HospitalPotassium [Moles/volume] in Serum or PlasmaOrdered By: Wesley Villafuerte on 61-30-1640Rhbhrjvxe [Moles/Vol] Potassium [Moles/volume] in Serum or Plasma3.5-5.1FWadsworth-Rittman HospitalComment on above:Hemolysis is present at a level that could interfere with the result.Contact lab if redraw is requiredProtein Test strip (U) [Mass/Vol] Ordered By: Wesley Villafuerte on 70-53-1816Vecaevx (U) [Mass/Vol]Protein [Mass/volume] in Urine by Test stripNegativeProvidence Hospital Protein [Mass/volume] in Serum or PlasmaOrdered By: Wesley Villafuerte on 04-28-2024 Protein [Mass/Vol]Protein [Mass/volume] in Serum or Plasma6.4-8.9Providence HospitalProthrombin Time INRon 38-02-5708YPH Coag (PPP) [Relative time]1.3 {INR}NormalThe Atrium Health [...] By: #### CMP, MG, PHOS, CBC #### [facility] [address] [place] [address] USAPT Coag (PPP) [Time]15.1 sHigh9.0-12.9The Atrium Health Physician GroupComment on above:Result Comment: A hematocrit value greater than 55% may lead to inaccurate results in coagulation testing. Patients having hematocrit values >55% require a special collection tube for coagulation studies. Please contact the laboratory at [phone] for redraw instructions.Performed By: #### CMP, MG, PHOS, CBC #### [facility] [address] [place] [address] USAProthrombin time (PT)Ordered By: Wesley Villafuerte on 34-19-4553OI Coag (PPP) [Time]Prothrombin time (PT)High9.0-12.9Providence HospitalComment on above:A hematocrit value greater than 55% may lead to inaccurate results in coagulation testing. Patientshaving hematocrit values >55% require a special collection tube for coagulation studies. Please c ontact the laboratory at [phone] for redraw instructions.RBC Auto (Bld) [#/Vol]Ordered By: Wesley Villafuerte on 23-94-2646MFE (Bld) [#/Vol]Erythrocytes [#/volume] in Blood by Automated countHigh3.60-5.00Providence HospitalRespiratory (Upper) Panel, PCRon 64-82-5868Ajqnvsfomyp (Upper) Panel, PCR Adenovirus Not detected Bordetella [...] Influenza A H3 Blank Space PERFORMED BY: [place] [address] PATHOLOGIST CRYPTOZOOLOGIST LE MACE M.D.NormalThe Atrium Health Physician GroupComment on above: Performed By: #### CMP, MG, PHOS, CBC #### [place] [address] USARespiratory pathogens DNA and RNA panel - Nasopharynx by TEJINDER with non-probe detectionOrdered By: Wesley Villafuerte on 23-39-7501Hqakoobcrvw pathogens DNA and RNA panel TEJINDER+non-probe (Nph)Respiratory pathogens DNA and RNA panel - Nasopharynx by TEJINDER with non-probe detectionProvidence HospitalRespiratory pathogens DNA and RNA panel TEJINDER+non-probe (Nph)Respiratory pathogens DNA and RNA panel - Nasopharynx by TEJINDER with non-probe detection UK Healthcarecan and CBCon 02-66-8935Xvbgtqkdzrji Ql (Bld) SlightNormalThe Atrium Health Physician GroupComment on above:Performed By: #### CMP, MG, PHOS, CBC #### [facility] [address] [place] [address] USABasophils (Bld) [#/Vol]0.1 10*3/uLNormal0.0-0.2The [facility] Health Physician GroupComment on above:Performed By: #### CMP, MG, PHOS, CBC #### [place] [address] USABasophils/100 WBC (Bld)1.1 %Normal.The [facility] Health Physician GroupComment on above:Performed By: #### CMP, MG, PHOS, CBC #### [facility] [address] [place] [address] USAEosinophils (Bld) [#/Vol]0.3 10*3/uLNormal0.0-0.45The [facility] Health Physician GroupComment on above:Performed By: #### CMP, MG, PHOS, CBC #### [place] [address] USAEosinophils/100 WBC (Bld)2.7 %Normal.The At[facility] Health Physician GroupComment on above:Performed By: #### CMP, MG, PHOS, CBC #### [place] [address] USAErythrocyte distribution width (RBC) [Ratio]15.4 %High 11.9-15.3The At[facility] Health Physician GroupComment on above:Performed By: #### CMP, MG, PHOS, CBC #### [place] [address] USAHematocrit (Bld) [Volume fraction]48.1 %High34.0-46.4The At[facility] Health Physician GroupComment on above:Performed By: #### CMP, MG, PHOS, CBC #### [place] [address] USAHemoglobin (Bld) [Mass/Vol]16.0 g/vWGtqs25.8-15.4The [facility] Health Physician GroupComment on above:Performed By: #### CMP, MG, PHOS, CBC #### [place] [address] USALymphocytes (Bld) [#/Vol]2.5 10*3/uLNormal1.00-4.8The [facility] Health Physician GroupComment on above:Performed By: #### CMP, MG, PHOS, CBC #### [place] [address] USALymphocytes/100 WBC (Bld)24.6 %Normal.The [facility] Health Physician GroupComment on above:Performed By: #### CMP, MG, PHOS, CBC #### [place] [address] USAMCH (RBC) [Entitic mass]31.7 oiHnwree61.7-34.3The [facility] Health Physician GroupComment on above:Performed By: #### CMP, MG, PHOS, CBC #### [place] [address] USAMCV (RBC) [Entitic vol]95.1 xRSsaayy47-382Nkz [facility] Health Physician GroupComment on above:Performed By: #### CMP, MG, PHOS, CBC #### [facility] [address] [place] [address] USAMean Corpuscular HGB Conc33.3 g/vHIvcppo30.0-35.0The [facility] Health Physician GroupComment on above:Performed By: #### CMP, MG, PHOS, CBC #### [facility] [address] [place] [address] USAMonocytes (Bld) [#/Vol]0.8 10*3/uLNormal0.0-0.8The [facility] Health Physician GroupComment on above:Performed By: #### CMP, MG, PHOS, CBC #### [place] [address] USAMonocytes/100 WBC (Bld)20.25 %High0.00-20.00The [facility] Health Physician GroupComment on above:Result Comment: For adults in ED, MDW > 20.0 may be associated with a higher risk of sepsis during the first 12 hrs of hospital admissionPerformed By: #### CMP, MG, PHOS, CBC #### [facility] [address] [place] [address] USAMonocytes/100 WBC (Bld)7.6 %Normal.The [facility] Health Physician GroupComment on above:Performed By: #### CMP, MG, PHOS, CBC #### [facility] [address] [place] [address] USANeutrophils (Bld) [#/Vol]6.5 10*3/uLNormal1.8-7.7The [facility] Health Physician GroupComment on above:Performed By: #### CMP, MG, PHOS, CBC #### [facility] [address] [place] [address] USANeutrophils/100 WBC (Bld)64.0 %Normal.The [facility] Health Physician GroupComment on above:Performed By: #### CMP, MG, PHOS, CBC #### [facility] [address] [place] [address] USANRBC%0.2 /100{WBC}Normal0-0.5The [facility] Comment on above:Performed By: #### CMP, MG, PHOS, CBC #### [place] [address] USAPlatelet EstimateDecreasedNormalAdventHealth Fish Memorial Physician Trace Regional HospitalComment on above:Performed By: #### CMP, MG, PHOS, CBC #### [place] [address] USAPlatelet mean volume (Bld) [Entitic vol]9.9 fLNormal 6.3-10.7The [facility] Health Physician GroupComment on above:Performed By: #### CMP, MG, PHOS, CBC #### [place] [address] USAPlatelet MorphologyNormalNormalAdventHealth Fish Memorial Physician GroupComment on above:Result Comment: PERFORMED BY: [place] [address] PATHOLOGIST CRYPTOZOOLOGIST LE MACE M.D.Performed By: #### CMP, MG, PHOS, CBC #### [place] [address] USAPlatelets (Bld) [#/Vol]136 10*3/mUVev848-818Bfk [facility] Health Physician GroupComment on above:Performed By: #### CMP, MG, PHOS, CBC #### [place] [address] USAPolychromasiaSlightAdventHealth Fish Memorial Physician [facility] Comment on above:Performed By: #### CMP, MG, PHOS, CBC #### [place] [address] USARBC (Bld) [#/Vol]5.06 10*6/uLHigh3.60-5.00The [facility] Health Physician GroupComment on above:Performed By: #### CMP, MG, PHOS, CBC #### [place] [address] USAWBC (Bld) [#/Vol]10.2 10*3/uLNormal3.8-11.6The [facility] Health Physician GroupComment on above:Performed By: #### CMP, MG, PHOS, CBC #### [facility] [address] [place] [address] USAWBC (Bld) [#/Vol]10.9 10*3/uLNormal3.8-11.6The [facility] Health Physician GroupComment on above:Performed By: #### CMP, MG, PHOS, CBC #### [facility] [address] [place] [address] USASerum or plasma albumin/globulin mass ratioOrdered By: Wesley Villafuerte on 86-21-1375Vomdldc/Globulin [Mass ratio]Serum or plasma albumin/globulin mass ratioUK Healthcareerum or plasma anion gap determinationOrdered By: Wesley Villafuerte on 08-71-2118Cswbj gap [Moles/Vol]Serum or plasma anion gap determination6.0-15.0UK Healthcareodium [Moles/volume] in Serum or PlasmaOrdered By: Wesley Villafuerte on 33-25-8806Euttgw [Moles/Vol]Sodium [Moles/volume] in Serum or Wvpyob561-236 UK Healthcarepecific gravity Test strip (U) [Rel density] Ordered By: Wesley Villafuerte on 76-74-1501Qfhbjuri gravity (U) [Rel density]Specific gravity of Urine by Test stripHigh1.001-1.030[facility] Troponin I High Sensitivityon 43-04-5902Yphgntrz I High Sensitivity5.1 pg/mL Normal0.0-15.0The Atrium Health Physician GroupComment on above:Result Comment: PERFORMED BY: [address] [address] PATHOLOGIST CRYPTOZOOLOGIST LE MACE M.D.Performed By: #### CMP, MG, PHOS, CBC #### [facility] [address] [place] [address] USATroponin I.cardiac [Mass/volume] in Serum or Plasma by Detection limit <= 0.01 ng/Ordered By: Wesley Villafuerte on 29-88-1032Ucujcuca I.cardiac DL <= 0.01 ng/mL [Mass/Vol]Troponin I.cardiac [Mass/volume] in Serum or Plasma by Detection limit <= 0.01 ng/0.0-15.0[facility] HospitalUrea nitrogen [Mass/volume] in Serum or PlasmaOrdered By: Wesley Villafuerte on 14-18-5465Ekam nitrogen [Mass/Vol]Urea nitrogen [Mass/volume] in Serum or Plasma 7-25[facility] HospitalUrobilinogen Test strip (U) [Mass/Vol] Ordered By: Wesley Villafuerte on 47-87-2270Ppbrlfvowlku (U) [Mass/Vol]Urobilinogen [Mass/volume] in Urine by Test stripNormalProvidence HospitalWBC Auto (Bld) [#/Vol]Ordered By: Wesley Villafuerte on 73-22-1103FWA (Bld) [#/Vol] Leukocytes [#/volume] in Blood by Automated count3.8-11.6FWadsworth-Rittman HospitalX-ray reportOrdered By: Oz Bowling on 87-84-0027Cmolm report [facility] [place] [address] XRay Report Signed Patient: Taye Gay MR#: [id number] : 1955 Acct:[id number] Age/Sex: 68 / F ADM Date: 4 Loc: ER Room: Type: [facility] ER Attending Dr: Copies to: Wesley Villafuerte [...] Bowling II, MD 04/28/242143 Signed By: 04/28/242145 [facility] Work Phone: XR chest 2V*on 46-91-1938PI chest 2V*[facility] [place] [address] [place] [address] XRay Report Signed Patient: Taye Gay MR#: [id number] : 1955 Acct:[id number] Age/Sex: 68 / F ADM Date: 04/28/24 Loc: ER Room: Type: [facility] ER Attending Dr: Copies to: Wesley Villafuerte [...] overload/congestive heart failure. Impression dictated by: Oz Bwoling M.D.04/28/2024 9:46 PM Dictation Location: RADIO-PC-17 Transcribed By: AMY 04/28/242145 Dictated By: Oz Bowling II, MD 04/28/242143 Signed By: 04/28/24 2146[facility] Physician GroupYeast.budding [Presence] in Urine by Computer assisted methodOrdered By: Wesley Villafuerte on 04-28-2024 Yeast.budding Computer assisted Ql (U)Yeast.budding [Presence] in Urine by Computer assisted methodOhioHealth Mansfield HospitalaPTT in Platelet poor plasma by Coagulation assayOrdered By: Wesley Villafuerte on 04-28-2024 aPTT Coag (PPP) [Time]Activated partial thromboplastin time (aPTT) in platelet poor plasma by coagulation a25.1-36.5FWadsworth-Rittman HospitalComment on above:A hematocrit value greater than 55% may lead to inaccurate results in coagulation testing. Patientshaving hematocrit values >55% require a special collection tube for coagulation studies. Please contact the laboratory at [phone] for redraw instructions.pH Test strip (U)Ordered By: Wesley Villafuerte on 35-50-6442iX (U)pH of Urine by Test strip5.0-9.0[facility] HospitalECG 12 lead ECGon 42-79-6616WYU 12 lead ECGOHIOHEALTH [place] [address] Electrocardiograph Report Signed Patient: Taye Gay MR#: [id number] : 1955 Acct:[id number] Age/Sex: 68 / F ADM Date: 04/27/24 Loc: ER Room: Type: [facility] ER Attending Dr: Ordering Provider: [...] By: MUS Signed By Rl Villavicencio DO 0219[facility] Physician GroupAlanine aminotransferase [Enzymatic activity/volume] in Serum or PlasmaOrdered By: Nataliya Jane on 61-49-7007AVV [Catalytic activity/Vol]Alanine aminotransferase [Enzymatic activity/volume] in Serum or Plasma7-52[facility] HospitalAlbumin [Mass/volume] in Serum or Plasma by Bromocresol green (BCG) dye binding methoOrdered By: Nataliya Jane on 17-35-5651Wbcqnax BCG dye [Mass/Vol]Albumin [Mass/volume] in Serum or Plasma by Bromocresol green (BCG) dye binding metho3.5-5.7FWadsworth-Rittman HospitalAlkaline phosphatase [Enzymatic activity/volume] in Serum or PlasmaOrdered By: Nataliya Jane on 91-83-0185HKP [Catalytic activity/Vol] Alkaline phosphatase [Enzymatic activity/volume] in Serum or Ximrxy88-817 [facility] HospitalAspartate aminotransferase [Enzymatic activity/volume] in Serum or PlasmaOrdered By: Nataliya Jane on 48-73-0262RKI [Catalytic activity/Vol]Aspartate aminotransferase [Enzymatic activity/volume] in Serum or Evdnpn45-44KulmwobbqProvidence HospitalBilirubin.total [Mass/volume] in Serum or PlasmaOrdered By: Nataliya Jane on 91-35-1558Mbdbrbfnr [Mass/Vol]Bilirubin.total [Mass/volume] in Serum or Plasma0.3-1.0[facility] HospitalCBC W Auto Differential panel (Bld)on 12-25-0975Gwyogdxlk (Bld) [#/Vol]0.1 10*3/uL0.0 - 0.2 10*3/uLNOMS HealthcareBasophils/100 WBC Manual cnt (Syn fld)0.6 %.NOMS HealthcareEosinophils (Bld) [#/Vol]0.3 10*3/uL0.0 - 0.45 10*3/uLNOMS HealthcareEosinophils/100 WBC Manual cnt (Syn fld)2.6 %.NOMS HealthcareErythrocyte distribution width (RBC) [Ratio]15 %11.9 - 15.3 %NOMS HealthcareHematocrit (Bld) [Volume fraction]49.7 %High34.0 - 46.4 %University HospitalHemoglobin (Bld) [Mass/Vol]16.6 g/zVRyzm80.8 - 15.4 g/dLUniversity HospitalInterpretation and review of laboratory resultsAbnormSt. Mary Medical Center Lymphocytes (Bld) [#/Vol]2.1 10*3/uL1.00 - 4.8 10*3/uLNOMI Healthcare Lymphocytes/100 WBC Manual cnt (Syn fld)19.3 %.[facility] HospitalH (RBC) [Entitic mass]31.2 pg24.7 - 34.3 pgLee's Summit HospitalHC (RBC) [Mass/Vol]33.4 g/dL32.0 - 35.0 g/dLLee's Summit HospitalV (RBC) [Entitic vol]93.4 fL80 - 100 fLUniversity Hospital Monocytes (Bld) [#/Vol]0.9 10*3/uLHigh0.0 - 0.8 10*3/uLNOCarondelet Health Monocytes+Macrophages/100 WBC Manual cnt (Syn fld)8.7 %.[facility] Neutrophils (Bld) [#/Vol]7.3 10*3/uL1.8 - 7.7 10*3/uLNOMI Healthcare Neutrophils/100 WBC Manual cnt (Syn fld)68.8 %.University HospitalNRBC0.1 /100{WBC}0 - 0.5 /100{WBC}University HospitalPlatelet mean volume (Bld) [Entitic vol]8.9 fL6.3 - 10.7 fLUniversity HospitalPlatelets (Bld) [#/Vol]167 10*3/uL150 - 450 10*3/uLNOMS Wooster Community HospitalRBC LM.HPF (Urine sed) [#/Area]5.32 10*6/uLHigh3.60 - 5.00 10*6/uLNOMS HealthcareWBC (Bld) [#/Vol]10.7 10*3/uL3.8 - 11.6 10*3/uLNOMS HealthcareWBC LM.HPF (Urine sed) [#/Area]10.7 10*3/uL3.8 - 11.6 10*3/uLNOMS [facility] HealthcareCalcium [Mass/volume] in Serum or PlasmaOrdered By: Nataliya Jane on 68-81-7461Ijjrdrl [Mass/Vol]Calcium [Mass/volume] in Serum or Plasma8.6-10.3 [facility] HospitalCarbon dioxide, total [Moles/volume] in Serum or PlasmaOrdered By: Nataliya Jane on 15-54-9728UN6 [Moles/Vol]Carbon dioxide, total [Moles/volume] in Serum or Idsgoe38.0-31.0[facility] HospitalChloride [Moles/volume] in Serum or PlasmaOrdered By: Nataliya Jane on 95-47-5967Mclpeqws [Moles/Vol]Chloride [Moles/volume] in Serum or Twrtlw22-811 [facility] HospitalComplete Blood Count Auto Diffon 04-14-2024 Basophils (Bld) [#/Vol]0.1 10*3/uLNormal0.0-0.2[facility] Comment on above:Result Comment: PERFORMED BY: [facility] [address] [place] [address] PATHOLOGIST CRYPTOZOOLOGIST LE MACE M.D.Performed By: #### CMP, LDH, PATH SLIDE REV, CBC #### [facility] [address] [place] [address] USABasophils/100 WBC (Bld)0.6 %Normal.The Atrium Health Physician GroupComment on above:Performed By: #### CMP, LDH, PATH SLIDE REV, CBC #### [facility] [address] [place] [address] USAEosinophils (Bld) [#/Vol]0.3 10*3/uLNormal0.0-0.45The Atrium Health Physician GroupComment on above:Performed By: #### CMP, LDH, PATH SLIDE REV, CBC #### [facility] [address] [place] [address] USAEosinophils/100 WBC (Bld)2.6 %Normal.The At[facility] Health Physician GroupComment on above:Performed By: #### CMP, LDH, PATH SLIDE REV, CBC #### [facility] [address] [place] [address] USAErythrocyte distribution width (RBC) [Ratio]15.0 %Normal 11.9-15.3The Atrium Health Physician GroupComment on above:Performed By: #### CMP, LDH, PATH SLIDE REV, CBC #### [place] [address] USAHematocrit (Bld) [Volume fraction]49.7 %High34.0-46.4The Atrium Health Physician GroupComment on above:Performed By: #### CMP, LDH, PATH SLIDE REV, CBC #### [place] [address] USAHemoglobin (Bld) [Mass/Vol]16.6 g/dDMznf85.8-15.4The At[facility] Health Physician GroupComment on above:Performed By: #### CMP, LDH, PATH SLIDE REV, CBC #### [place] [address] USALymphocytes (Bld) [#/Vol]2.1 10*3/uLNormal1.00-4.8The Atrium Health Physician GroupComment on above:Performed By: #### CMP, LDH, PATH SLIDE REV, CBC #### [place] [address] USALymphocytes/100 WBC (Bld)19.3 %Normal.The At[facility] Health Physician GroupComment on above:Performed By: #### CMP, LDH, PATH SLIDE REV, CBC #### [place] [address] USAMCH (RBC) [Entitic mass]31.2 koZzkvnt92.7-34.3The Atrium Health Physician GroupComment on above:Performed By: #### CMP, LDH, PATH SLIDE REV, CBC #### [place] [address] USAMCV (RBC) [Entitic vol]93.4 qUDlurjo11-351Evh [facility] Health Physician GroupComment on above:Performed By: #### CMP, LDH, PATH SLIDE REV, CBC #### [place] [address] USAMean Corpuscular HGB Conc33.4 g/sACwfwmb75.0-35.0The At[facility] Health Physician GroupComment on above:Performed By: #### CMP, LDH, PATH SLIDE REV, CBC #### [place] [address] USAMonocytes (Bld) [#/Vol]0.9 10*3/uLHigh0.0-0.8The At[facility] Health Physician GroupComment on above:Performed By: #### CMP, LDH, PATH SLIDE REV, CBC #### [place] [address] USAMonocytes/100 WBC (Bld)8.7 %Normal.The [facility] Health Physician GroupComment on above:Performed By: #### CMP, LDH, PATH SLIDE REV, CBC #### [place] [address] USANeutrophils (Bld) [#/Vol]7.3 10*3/uLNormal1.8-7.7The Atrium Health Physician GroupComment on above:Performed By: #### CMP, LDH, PATH SLIDE REV, CBC #### [place] [address] USANeutrophils/100 WBC (Bld)68.8 %Normal.The At[facility] Health Physician GroupComment on above:Performed By: #### CMP, LDH, PATH SLIDE REV, CBC #### [place] [address] USANRBC%0.1 /100{WBC}Normal0-0.5[facility] Comment on above:Performed By: #### CMP, LDH, PATH SLIDE REV, CBC #### [place] [address] USAPlatelet mean volume (Bld) [Entitic vol]8.9 fLNormal 6.3-10.7The At[facility] Health Physician GroupComment on above:Performed By: #### CMP, LDH, PATH SLIDE REV, CBC #### [place] [address] USAPlatelets (Bld) [#/Vol]167 10*3/rCTozulv961-072Has [facility] Health Physician GroupComment on above:Performed By: #### CMP, LDH, PATH SLIDE REV, CBC #### [facility] [address] [place] [address] USARBC (Bld) [#/Vol]5.32 10*6/uLHigh3.60-5.00The At[facility] Health Physician GroupComment on above:Performed By: #### CMP, LDH, PATH SLIDE REV, CBC #### [place] [address] USAWBC (Bld) [#/Vol]10.7 10*3/uLNormal3.8-11.6The At[facility] Health Physician GroupComment on above:Performed By: #### CMP, LDH, PATH SLIDE REV, CBC #### [place] [address] USAComprehensive Metabolic Panelon 92-98-6246Xdjlmwp [Mass/Vol]4.1 g/dLNormal3.5-5.7The Atrium Health Physician GroupComment on above: Performed By: #### CMP, LDH, PATH SLIDE REV, CBC #### [place] [address] USAAlbumin/Globulin [Mass ratio]1.2 {ratio}NormalThe Atrium Health Physician GroupComment on above:Performed By: #### CMP, LDH, PATH SLIDE REV, CBC #### [place] [address] USAALP [Catalytic activity/Vol]92 U/WWltfmm38-207Nhs [facility] Health Physician GroupComment on above:Performed By: #### CMP, LDH, PATH SLIDE REV, CBC #### [place] [address] USAALT [Catalytic activity/Vol]20 U/LNormal7-52The [facility] Health Physician GroupComment on above:Performed By: #### CMP, LDH, PATH SLIDE REV, CBC #### [place] [address] USAAnion gap [Moles/Vol]16.1 mmol/LHigh6.0-15.0The [facility] Health Physician GroupComment on above:Performed By: #### CMP, LDH, PATH SLIDE REV, CBC #### [place] [address] USAAST [Catalytic activity/Vol]26 U/MHoblaf40-43Lus [facility] Health Physician GroupComment on above:Performed By: #### CMP, LDH, PATH SLIDE REV, CBC #### [place] [address] USABilirubin [Mass/Vol]0.6 mg/dLNormal0.3-1.0The [facility] Health Physician GroupComment on above:Performed By: #### CMP, LDH, PATH SLIDE REV, CBC #### [place] [address] USACalcium [Mass/Vol]10.0 mg/dLNormal8.6-10.3The [facility] Health Physician GroupComment on above:Performed By: #### CMP, LDH, PATH SLIDE REV, CBC #### [place] [address] USAChloride [Moles/Vol]101 mmol/NMqgicg45-095Syq [facility] Health Physician GroupComment on above:Performed By: #### CMP, LDH, PATH SLIDE REV, CBC #### [place] [address] USACO2 [Moles/Vol]26.9 mmol/MAgkoqb26.0-31.0The [facility] Health Physician GroupComment on above:Performed By: #### CMP, LDH, PATH SLIDE REV, CBC #### [place] [address] USACreatinine [Mass/Vol]0.83 mg/dLNormal0.60-1.20The At[facility] Health Physician GroupComment on above:Performed By: #### CMP, LDH, PATH SLIDE REV, CBC #### [place] [address] USACreatinine Clr Calc Uldfuwfq61.05NormalThe Atrium Health Physician GroupComment on above:Performed By: #### CMP, LDH, PATH SLIDE REV, CBC #### [facility] [address] [place] [address] USAGFR/1.73 sq M.predicted MDRD (S/P/Bld) [Vol rate/Area] mL/min/{1.73_m2}NormalThe Atrium Health Physician GroupComment on above:Performed By: #### CMP, LDH, PATH SLIDE REV, CBC #### [facility] [address] [place] [address] USAGlobulin (S) [Mass/Vol]3.3 g/dLNormalThe Atrium Health Physician GroupComment on above:Performed By: #### CMP, LDH, PATH SLIDE REV, CBC #### [facility] [address] [place] [address] USAGlucose [Mass/Vol]169 mg/tHXixq68-368Wft At[facility] Health Physician GroupComment on above:Result Comment: Random Glucose Reference Range is dependent on time and content of last meal. Glucose of more than 200 mg/dL in a nonstressed, ambulatory subject supports the diagnosis of Diabetes Mellitus. ADA recommended reference rangePerformed By: #### CMP, LDH, PATH SLIDE REV, CBC #### [facility] [address] [place] [address] USAPotassium [Moles/Vol]4.0 mmol/LNormal3.5-5.1The At[facility] Health Physician GroupComment on above:Performed By: #### CMP, LDH, PATH SLIDE REV, CBC #### [facility] [address] [place] [address] USAProtein [Mass/Vol]7.4 g/dLNormal6.4-8.9The At[facility] Health Physician GroupComment on above:Performed By: #### CMP, LDH, PATH SLIDE REV, CBC #### [facility] [address] [place] [address] USASodium [Moles/Vol]140 mmol/TTniuhh600-323Wbu [facility] Health Physician GroupComment on above:Performed By: #### CMP, LDH, PATH SLIDE REV, CBC #### [facility] [address] [place] [address] USAUrea nitrogen [Mass/Vol]8 mg/dLNormal7-25The [facility] Health Physician GroupComment on above:Performed By: #### CMP, LDH, PATH SLIDE REV, CBC #### [facility] [address] [place] [address] USAComprehensive metabolic panelon 12-05-3411Eduzktl [Mass/Vol]4.1 g/dL3.5 - 5.7 g/dLNOMS HealthcareAlbumin/Globulin [Mass [...] mg/dL0.60 - 1.20 mg/dLNOMS HealthcareCREATININE CLR CALC XOXBVCMZ75.05NOMS HealthcareESTIMATED GFRmL/MinNOMS HealthcareGlobulin (S) [Mass/Vol]3.3 g/dLNOMS HealthcareGlucose [Mass/Vol]169 mg/kEIfmh34 - 100 mg/dLNOMI HealthcareComment on above:Random Glucose Reference Range is [...] Creatinine [Mass/Vol]Creatinine [Mass/volume] in Serum or Plasma0.60-1.20 [facility] HospitalGlobulin Calc (S) [Mass/Vol]Ordered By: Nataliya Jane on 21-58-7184Abfxhshk (S) [Mass/Vol]Serum globulin measurement by calculation (mass/volume)[facility] HospitalGlucose [Mass/volume] in Serum or PlasmaOrdered By: Nataliya Jane on 47-75-6248Kennjyu [Mass/Vol] Glucose [Mass/volume] in Serum or RnnqrbHhvb12-922UpnzbvrqhProvidence HospitalComment on above:ADA recommended reference rangeRandom Glucose Reference Range is dependent on time and content of last meal. Glucose of more than 200 mg/dL in a nonstressed, ambulatory subject supports the diagnosisof Diabetes Mellitus.Juan 04-14-2024L Specimen: [id number] Received: 04/14/24 Status: FIDEL Knox Num: [id number] Spec Type: Impression Subm Dr: Nataliya Jane APRN Tissues: PATHPER Procedures: PATHREVIEW Age/ Patient Sex Location Account Attending Physician Taye Gay 68/F XT [id number] Naatliya Estephania Jane APRN SPEC NUM: [id number] RECD: 04/14/24 STATUS: FIDEL MARINOBrittany NUM: [id number] RONNY: 04/14/24- SUBM DR: Nataliya Jane APRN ENTERED: 04/14/[address]: CHRISTOPHER TYPE: Impression DEPT: NC ENTERED BY: [id number] RECV BY: [id number] ORDERED: PATHREVIEW ORDERED: PATHREVIEW Pathologist Review Abnormal [...] chronic smoking. Clinical correlations are suggested CPT: 32683 Specimen: [id number] Received: 04/14/24 Status: KOKONicholas Knox Num: [id number] Spec Type: Impression Subm Dr: Nataliya Jane APRN Tissues: PATHPER Procedures: PATHREVIEW Patient: Taye Gay [id number] (Continued) Specimen: [id number] Received: 04/14/24 (Continued) Signed (signature on file) Nereyda Holt MD 04/15/24 0920 Specimen: [id number] Received: 04/14/24 Status: FIDEL Knox Num: [id number] Spec Type: Impression Subm Dr: Nataliya Jane APRN Tissues: PATHPER Procedures: PATHREVIEW Patient: Taye Gay [id number] (Continued) Specimen: [id number] Received: 04/14/24-1147 (Continued) CBC [...] % Lymp % (Auto) 19.3 . % Giles % (Auto) 8.7 . % Eos % (Auto) 2.6 . % Baso % (Auto) 0.6 . % NRBC% 0.1 0-0.5 /100 WBC Neut # (Auto) 7.3 1.8-7.7 x10E3/uL Lymph # (Auto) 2.1 1.00-4.8 x10E3/uL Giles # (Auto) 0.9 H 0.0-0.8 x10E3/uL Eos # (Auto) 0.3 0.0-0.45 x10E3/uL Baso# (Auto) 0.1 0.0-0.2 x10E3/uL Specimen: [id number] Received: 04/14/24 Status: FIDEL Knox Num: [id number] Spec Type: Impression Subm Dr: Nataliya Jane APRN Tissues: PATHPER Procedures: PATHREVIEW Patient: Taye Gay [id number] (Continued) Signed (signature on file) Nereyda Holt MD 04/15/24 0920[facility] Lactate Dehydrogenaseon 83-30-6065OXL Lactate Cfgnkerjawshe616 U/DIooxjc154-040Txm [facility] Physician GroupComment on above:Result Comment: PERFORMED BY: [facility] [address] [place] [address] PATHOLOGIST CRYPTOZOOLOGIST LE MACE M.D.Performed By: #### CMP, LDH, PATH SLIDE REV, CBC #### [facility] [address] [place] [address] USALDH Lactate to pyruvate reaction [Catalytic activity/Vol] on 99-28-4763BYA LACTATE XJHPLMYJJFGJY512 U/L140 - 271 U/LNOMS HealthcareLactate dehydrogenase [Enzymatic activity/volume] in Serum or Plasma by Lactate to py Ordered By: Nataliya Jane on 54-41-5294BUV Lactate to pyruvate reaction [Catalytic activity/Vol]Lactate dehydrogenase [Enzymatic activity/volume] in Serum or Plasma by Lactate to ht831-159LmussjuvvProvidence HospitalNo Panel Informationon 73-66-1354WOEJUniversity HospitalNo Panel InformationOrdered By: Nataliya Jane on 82-88-0096Mfeqgkbbv GFR (CKD-EPI)> 60.0 mL/MinProvidence HospitalPharmacy Creatinine Clearance (Chem78.05UK Healthcarelides for Pathologist ReviewOrdered path reviewProvidence HospitalPATHOLOGIST SLIDE REVIEW ([facility])on 84-53-4759YARYPQTRBUI SLIDE REVIEW Ordered Path ReviewFormerly [facility], 1928–1983Pathologist Slide Reviewon 69-37-6146Hyxnyefxlvk Slide ReviewOrdered Path ReviewNoCrawley Memorial Hospital Physician GroupComment on above:Result Comment: PERFORMED BY: [address] [address] PATHOLOGIST CRYPTOZOOLOGIST LE MACE M.D.Performed By: #### CMP, LDH, PATH SLIDE REV, CBC #### [facility] [address] [place] [address] USAPotassium [Moles/volume] in Serum or PlasmaOrdered By: Nataliya Jane on 67-18-2287Isbfdhnuh [Moles/Vol]Potassium [Moles/volume] in Serum or Plasma3.5-5.1FWadsworth-Rittman HospitalProtein [Mass/volume] in Serum or PlasmaOrdered By: Nataliya Jane on 51-39-4645Ebsofdf [Mass/Vol]Protein [Mass/volume] in Serum or Plasma6.4-8.9UK Healthcareerum or plasma albumin/globulin mass ratioOrdered By: Nataliya Jane on 04-14-2024 Albumin/Globulin [Mass ratio]Serum or plasma albumin/globulin mass ratio UK Healthcareerum or plasma anion gap determinationOrdered By: Nataliya Jane on 46-52-2171Cgpsi gap [Moles/Vol]Serum or plasma anion gap determinationHigh6.0-15.0UK Healthcareodium [Moles/volume] in Serum or PlasmaOrdered By: Nataliya Jane on 51-62-9048Yoyadx [Moles/Vol] Sodium [Moles/volume] in Serum or Dhgytp152-510WxtgwfxieProvidence Hospital Urea nitrogen [Mass/volume] in Serum or PlasmaOrdered By: Nataliya Jane on 31-55-5987Tmdk nitrogen [Mass/Vol]Urea nitrogen [Mass/volume] in Serum or Plasma 7-Providence HospitalECG 12 [facility] 65-19-3121Utbfke sinus rhythm [facility] Work Phone: UnOhio [facility] Work Phone: aerobic cultureOrdered By: Karl Fritz on 90-76-9817Wlvbozbu identified Aer cx Nom (Unsp spec)Providence HospitalECG 12 [facility] 56-92-0975IibnseidfiOur Lady of Mercy Hospital Work Phone: Normal sinus rhythmCPACSOur Lady of Mercy Hospital Work Phone: aNAon 77-20-9627WMZUFLTTKXC ABS, IFAPositiveCritically abnormal.NOMS HealthcareComment on above:Negative <1:80 [...] Scleroderma-diffuse, Scleroderma-Autoimmune Myositis Overlap Syndrome, Systemic Lupus Vmajmbgzakoqa-Ollsrkrwsgx-Cmdvjlvrqr Myositis Overlap Syndrome, Systemic Autoimmune Rheumatic Disease, [...] Cytopenias, Linear Scleroderma, Antiphospholipid Syndrome Performed at: [address] [id number] Walking Dragline Oiler: Yuri Osullivan PhD, Phone: [phone] SPECKLED PATTERN1:320High.NOMS HealthcareComment on above:ICAP nomenclature: AC-2,4,5,29ANCA PROFILE (ANCA+MPO+PR3)on 86-42-9319BPYNXTJLBOPLJLKEINP (MPO) ABS <0.20.0 - 0.9NOMS HealthcareATYPICAL PANCA<1:20Neg:<1:20NOMS HealthcareComment on above:The atypical pANCA pattern has been observed in a significant percentage of patients with ulcerative colitis, primary sclerosing cholangitis and autoimmune hepatitis. Performed at: [address] [id number] Walking Dragline Oiler: Christine Pham MD, Phone: [phone] Performed at: [address] [id number] Walking Dragline Oiler: Yuri Osullivan PhD, Phone: [phone] CYTOPLASMIC (C-ANCA)<1:20Neg:<1:20NOMS HealthcarePERINUCLEAR (P-ANCA)<1:20 Neg:<1:20NOMS HealthcareComment on above:The presence of positive fluorescence exhibiting P-ANCA or C-ANCA patterns alone is not specific for the diagnosis of Marni's Granulomatosis (WG) or microscopic polyangiitis. Decisions about treatment should not be based solely on ANCA IFA results. The International ANCA Group Consensus recommends follow up testing of positive sera with both NC- 3 and MPO-ANCA enzyme immunoassays. As many as 5% serum samples are positive only by EIA. Ref. AM J Clin Pathol 1999;111:507-513. PROTEINASE 3 (PR3) ANTIBODIES<0.20.0 - 0.9NOMS HealthcareANTI-CENTROMERE B ANTIBODIESon 55-93-7666EFSQ-CENTROMERE B ANTIBODIES<0.20.0 - 0.9[facility] Comment on above:Performed at: [address] [id number] Walking Dragline Oiler: Yuri Osullivan PhD, Phone: [phone] ANTI-DSDNA(DBL)ABon 41-78-1227LPKD-DSDNA(DBL)AB10 - 9NOMS HealthcareComment on above:Negative <5 Equivocal 5 - 9 Positive >9 ANTI-RNPon 39-30-3861SGYA-RNP0.30.0 - 0.9NOMS HealthcareANTIRIBOSOMAL P ANTIBODIESon 83-60-2701GDNXTQOTXUHOZ P ANTIBODIES<0.20.0 - 0.9[facility] Anti-Fritz antibodyon 60-66-1022GMVI-FRITZ ANTIBODIES<0.20.0 - 0.9NOMS HealthcareHISTONE ANTIBODIESon 39-17-5341KCFEQKC ANTIBODIES0.60.0 - 0.9NOMS HealthcareComment on above:Negative <1.0 Weak Positive 1.0 - 1.5 Moderate Positive 1.6 - 2.5 Strong Positive >2.5 Performed at: [facility] Lab[address] [id number] Walking Dragline Oiler: Christine Pham MD, Phone: [id number] SUSHMA-1 ANTIBODYon 29-59-7868NP-1 ANTIBODY<0.20.0 - 0.9NOMS HealthcareMitochondrial antibodies, M2on 93-16-2838HFNVXOYGIAHLS (M2) ANTIBODY<20.00.0 - 20.0NOMS HealthcareComment on above:Negative 0.0 - 20.0 Equivocal 20.1 - 24.9 Positive >24.9 Mitochondrial (M2) Antibodies are found in 90-96% of patients with primary biliary cirrhosis. Performed at: [facility] [address], [place] [id number] Walking Dragline Oiler: Yuri Osullivan PhD, Phone: [phone] No Panel Informationon 30-43-7445QYIU HealthcareSCLERODERMA 70 ANTIBODIESon 61-45-0831YTHUPZCFATQ 70 ANTIBODIES<0.20.0 - 0.9NOMS HealthcareSJOGRENS ANTI-SSA/SSBon 09-96-6941NM-A/RO SJOGRENS ANTIBODY<0.20.0 - 0.9[facility] SS-B/LA SJOGRENS ANTIBODY<0.20.0 - 0.9NOMS HealthcareSRP AUTOANTIBODIESon 09-62-0543JWW (SIGNAL RECOG. PARTICLE)NegativeNegativeNOMI HealthcareComment on above:This test was developed and its performance characteristics determined by [employer]. It has not been cleared or approved by the Food and Drug Administration. Performed at: [facility] [address] [place] [id number] Walking Dragline Oiler: Juan Cruz MD, Phone: [phone] Alanine aminotransferase [Enzymatic activity/volume] in Serum or PlasmaOrdered By: Tolu Salinas on 86-87-5691TCH [Catalytic activity/Vol]31 U/L7-52Providence HospitalAlbumin [Mass/volume] in Serum or Plasma by Bromocresol green (BCG) dye binding methoOrdered By: Tolu Salinas on 08-73-8344Cjderhg BCG dye [Mass/Vol]4.2 g/dL3.5-5.7FWadsworth-Rittman HospitalAlkaline phosphatase [Enzymatic activity/volume] in Serum or PlasmaOrdered By: Tolu Salinas on 28-95-1299OPN [Catalytic activity/Vol]75 U/N03-565TdaqiokazProvidence HospitalAspartate aminotransferase [Enzymatic activity/volume] in Serum or PlasmaOrdered By: Tolu Salinas on 86-81-5799WNW [Catalytic activity/Vol]37 U/L 13-39Providence HospitalBasophil percentageOrdered By: Oz Kincaid on 18-75-1699Wrpzrktc bpawycyhbs05 ug/yL61-200SsncdlktnProvidence Hospital Comment on above:This test was developed and its performance characteristicsdetermined by [employer]. It has not been cleared orapproved by the Food and Drug Administration. Detection Limit = 5Performed at: [place] [address] [place], [place] [id number] Director: Christine Pham MD, Phone: [phone] percentage2 ug/L0-9Providence HospitalComment on above:This test was developed and its performance characteristicsdetermined by [employer]. It has not been cleared orapproved by the Food and Drug Administration. Detection Limit = 1Bilirubin.total [Mass/volume] in Serum or PlasmaOrdered By: Tolu Salinas on 02-97-4069Ykepzenzi [Mass/Vol]0.4 mg/dL0.3-1.0Providence HospitalBlood lead detectionOrdered By: Oz Kincaid on 85-41-0393Jvcn Ql (Bld)<1.0 ug/dL0.0-3.4FWadsworth-Rittman HospitalComment on above:Testing performed by Inductively coupled plasma/MassSpectrometry.Analysis by inductively coupled plasma/massspectrometry (ICP/MS)This test was developed and its performance characteristicsdetermined by [employer]. It has not been cleared orapproved by the Food and Drug Administration. Environmental Exposure: WHO Recommendation <5.0 Occupational Exposure: OSHA Lead Std 40.0 BOB 30.0 Detection Limit = 1.0Performed at: [facility] [employer] [id number] Director: Yuri bynum PhD, Phone: [phone] mercury measurement (mass/volume)Ordered By: Oz Kincaid on 53-34-8803Pdmfiru (Bld) [Mass/Vol]<1.0 ug/L0.0-14.9Providence HospitalComment on above:This test was developed and its performance characteristicsdetermined by [employer]. It has not been cleared orapproved by the Food and Drug Administration. Detection Limit = 1.0Performed at: [facility] [employer] [id number] Director: Christine Pham MD, Phone: [phone] [Mass/volume] in Serum or PlasmaOrdered By: Tolu Salinas on 88-30-4726Nofdarp [Mass/Vol]9.9 mg/dL 8.6-10.3FWadsworth-Rittman HospitalCarbon dioxide, total [Moles/volume] in Serum or PlasmaOrdered By: Tolu Salinas on 63-19-2429ZY0 [Moles/Vol]32.0 mmol/LHigh21.0-31.0Providence HospitalChloride [Moles/volume] in Serum or PlasmaOrdered By: Tolu Salinas on 29-93-3672Wlxmzzmu [Moles/Vol]103 mmol/T74-382SunjqjmjmProvidence HospitalCreatinine [Mass/volume] in Serum or PlasmaOrdered By: Tolu Salinas on 87-05-0408Ixpzpgbxin [Mass/Vol]0.97 mg/dL 0.60-1.20Providence HospitalGlobulin Calc (S) [Mass/Vol]Ordered By: Tolu Salinas on 26-03-5757Niogrepa (S) [Mass/Vol]2.7 g/dLProvidence HospitalGlucose [Mass/volume] in Serum or PlasmaOrdered By: Tolu Salinas on 03-91-3507Ojigfei [Mass/Vol]114 mg/aZIrjy85-820RovddtjerProvidence HospitalComment on above:ADA recommended reference rangeRandom Glucose Reference Range is dependent on time and content of last meal. Glucose of more than 200 mg/dL in a nonstressed, ambulatory subject supports the diagnosisof Diabetes Mellitus.HIV 1 and HIV-2 antibody assay with HIV-1 p24 antigen detectionOrdered By: Oz Kincaid on 89-38-9983MDM 1+2 Ab+HIV1 p24 Ag IA QlNon-ReactiveNon Reactive Providence HospitalComment on above:HIV-1/HIV-2 antibodies and HIV-1 p24 antigen were NOTdetected. There is no laboratory evidence of HIV infection.HIV NegativePerformed at: [address] [id number] Director: Yuri Osullivan PhD, Phone: [phone] B virus surface Ag [Presence] in Serum or Plasma by ImmunoassayOrdered By: Oz Kincaid on 43-12-6105NOG surface Ag IA QlNegativeNegativeProvidence HospitalHesaint elizabeth edgewoodtis C virus IgG Ab [Presence] in Serum or Plasma by Immunoassay Ordered By: Oz Kincaid on 12-40-7145TJP IgG IA QlNon-ReactiveNon ReactiveProvidence HospitalHepatitis C virus RNA [Units/volume] (viral load) in Serum or Plasma by TEJINDER with probOrdered By: Oz Kincaid on 89-57-1782RES RNA TEJINDER+probe QnN/[facility] SouthHesaint elizabeth edgewoodtis C virus RNA [log units/volume] (viral load) in Serum or Plasma by TEJINDER withOrdered By: Oz Kincaid on 23-36-0543VNU RNA TEJINDER+probe [Log units/Vol]N/[facility] Lactate dehydrogenase [Enzymatic activity/volume] in Serum or Plasma by Lactate to pyOrdered By: Oz Kincaid on 25-06-5788FRU Lactate to pyruvate reaction [Catalytic activity/Vol]156 U/S112-454FevcpjxlwProvidence HospitalMagnesium [Mass/volume] in Serum or PlasmaOrdered By: Tolu Salinas on 55-86-2443Cooxdjvsi [Mass/Vol]2.0 mg/dL1.9-2.7FWadsworth-Rittman HospitalNo Panel Information Ordered By: Oz Kincaid on 23-59-3875Tmyckfuxjfocr Test 2See Doctors HospitalComment on above:See report. Scanned copy available in EMR.Hepatitis A IgM AntibodyNegativeNegativeProvidence Hospital Hepatitis B Core IgM AntibodyNegativeNegativeProvidence Hospital Hepatitis C InterpretationComment.Providence HospitalComment on above:Not infected with HCV unless early or acute infection issuspected (which may be delayed in an immunocompromisedindividual), or other evidence exists to indicate HCVinfection.Performed at: [facility] [employer] [id number] Director: Yuri Osullivan PhD, Phone: [phone] [facility] HospitalComment on above:See report. Scanned copy available in EMR.Whole Blood Qixx493 ug/uZ240-612JodfuzwvjProvidence HospitalComment on above:This test was developed and its performance characteristicsdetermined by [employer]. It has not been cleared orapproved by the Food and Drug Administration.Performed at: [facility] [employer] [id number] Director: Christine Pham MD, Phone: [phone] Panel InformationOrdered By: Tolu Salinas on 30-89-3795Versnyumm GFR (CKD-EPI)> 60.0 mL/MinProvidence HospitalPharmacy Creatinine Clearance (ChemN/[facility] SouthPotassium [Moles/volume] in Serum or PlasmaOrdered By: Tolu Salinas on 29-60-3727Lijklcjhg [Moles/Vol]4.5 mmol/L3.5-5.1FWadsworth-Rittman HospitalProtein [Mass/volume] in Serum or PlasmaOrdered By: Tolu Salinas on 89-16-6813Pdkwqzr [Mass/Vol]6.9 g/dL6.4-8.9 UK Healthcareerum angiotensin converting enzyme (VITA) measurementOrdered By: Oz Kincaid on 49-40-3412Kzsmblzdmww converting enzyme [Catalytic activity/Vol]53 U/W69-47FrtbtzhkbProvidence HospitalComment on above:Performed at: [facility] [employer] Director: Yuri Osullivan PhD, Phone: [phone] cryoglobulin detection Ordered By: Oz Kincaid on 41-17-8192Sfkkxzrnrocg Ql (S)CommentNone detected Providence HospitalComment on above:None Detected at 72 hoursThis test was developed and its performance characteristicsdetermined by [employer]. It has not been cleared orapproved by the Food and Drug Administration.Performed at: [facility] [address] [id number] Director: Yuri Osullivan PhD, Phone: [phone] or plasma albumin/globulin mass ratioOrdered By: Tolu Salinas on 98-09-2036Mnhqxyx/Globulin [Mass ratio]1.6 {ratio}UK Healthcareerum or plasma anion gap determination Ordered By: Tolu Salinas on 39-60-1504Zuugz gap [Moles/Vol]8.5 mmol/L6.0-15.0 UK Healthcareerum or plasma ceruloplasmin measurement (mass/volume)Ordered By: Oz Kincaid on 09-88-4812Iqnnjlstesxcg [Mass/Vol]26.8 mg/dL19.0-39.0Providence HospitalComment on above:Performed at: [facility] [address] [id number] Director: Yuri Osullivan PhD, Phone: [phone] or plasma complement C3 measurement (mass/volume)Ordered By: Oz Kincaid on 45-23-8245Hbftqruxkf C3 [Mass/Vol]147 mg/dL 82-167Providence HospitalComment on above:Performed at: [address] [id number] Director: Yuri Osullivan PhD, Phone: [phone] or plasma complement C4 measurement (mass/volume)Ordered By: Oz Kincaid on 48-94-8688Xevhqfldcq C4 [Mass/Vol]32 mg/dL 12-38UK Healthcareodium [Moles/volume] in Serum or Plasma Ordered By: Tolu Salinas on 09-77-0742Hppivt [Moles/Vol]139 mmol/J711-400 Providence HospitalThallium [Mass/volume] in Serum or Plasma Ordered By: Oz Kincaid on 58-18-6838Xzjedfug [Mass/Vol]<1.0 ng/mL<5.0Providence HospitalComment on above:Thallium concentrations greater than 300 ng/ml are consistent with acute toxicity. Urine is the preferred specimen for assessment of thallium exposure. Thallium analysis performed by inductively coupled plasma / mass spectrometry (ICP/MS).This test was developed and its performance characteristicsdetermined by [employer]. It has not been cleared or approvedby the Food and Drug Administration.Performed at: [employer] [address] [id number] Director: Whitney Arevalo [facility], Phone: [phone] nitrogen [Mass/volume] in Serum or Plasma Ordered By: Tolu Salinas on 38-15-6557Mnzy nitrogen [Mass/Vol]11 mg/dL7-25 Providence HospitalLACTATE AND PYRUVATEon 49-00-7510Mggizuvffuyyfz and review of laboratory resultsAbnormalNOMS HealthcareLACTIC ACID, SSRIVL52.1 mg/dLHigh4.8 - 25.7 mg/dLNOMS HealthcarePYRUVIC ACID, BLOOD0.7 mg/dL0.3 - 0.7 mg/dLNOMS HealthcareComment on above:This test was developed and its performance characteristics determined by [employer]. It has not been cleared or approved by the Food and Drug Administration. Performed at: [facility] [place] [address], [place] [id number] Walking Dragline Oiler: Yuri Osullivan PhD, Phone: [phone] Performed at: [address] [id number] Walking Dragline Oiler: Christine Pham MD, Phone: [phone] NOMS HealthcareDNA double strand Ab [Units/volume] in SerumOrdered By: Oz Kincaid on 62-70-3979IWI double strand Ab Qn (S)1 [IU]/mL0-9Providence HospitalComment on above:Negative <5 Equivocal 5 - 9 Positive >9Myeloperoxidase Ab [Units/volume] in Serum by ImmunoassayOrdered By: Oz Kincaid on 11-26-2023 Myeloperoxidase Ab IA Qn (S)<0.2 units0.0-0.9Providence HospitalNo Panel InformationOrdered By: Oz Kincaid on 74-59-5749Mvdy-Nuclear Antibody Comment 2Comment.Providence HospitalComment on above:Pattern Potential Disease Association Homogeneous Systemic Lupus Erythematosus, Drug Induced Systemic Lupus Erythematosus, Chronic Autoimmune hepatitis, Juvenile Idiopathic Arthritis Speckled Sjogren Syndrome, Systemic Lupus Erythematosus, Subacute Cutaneous Lupus, Lupus, Congenital Heart Block, Mixed Connective Tissue Disease, Scleroderma-diffuse, Scleroderma- Autoimmune Myositis Overlap Syndrome, Systemic Lupus Yawixfxulzdnm-Elalsxaajkp-Thnaxqavdi Myositis Overlap Syndrome, Systemic Autoimmune Rheumatic Disease, [...] Cytopenias, Linear Scleroderma, Antiphospholipid Syndrome Performed at: [employer] [id number] Director: Yuri Osullivan PhD, Phone: [phone] p-ANCA<1:20 titerNeg:<1:20Providence HospitalComment on above:The atypical pANCA pattern has been observed in asignificant percentage of patients with ulcerativecolitis,primary sclerosing cholangitis and autoimmune hepatitis.Performed at: [facility] [employer] [id number] Director: Christine Pham MD, Phone: [phone] at: [employer] [id number] Director: Yuri Osullivan PhD, Phone: [phone] ANCA (p-ANCA) Antibody<1:20 titerNeg:<1:20[facility] Comment on above:The presence of positive fluorescence exhibiting P-ANCA orC- ANCA patterns alone is not specific forthe diagnosis ofWegener's Granulomatosis (WG) or microscopic polyangiitis.Decisions about treatmentshould not be based solely onANCA IFA results. The International ANCA Group Consensusrecommends foll ow up testing of positive sera with both NC-3 and MPO-ANCA enzyme immunoassays. As many as 5% serumsamples are positive only by EIA. Ref. AM J Clin Fuwvax6121;111:507-513.Plasma Lactic Acid, Wihhna63.1 mg/dLHigh4.8-25.7FWadsworth-Rittman HospitalPyruvic Acid0.7 mg/dL0.3-0.7FWadsworth-Rittman HospitalComment on above:This test was developed and its performance characteristicsdetermined by [employer]. It has not been cleared orapproved by the Food and Drug Administration.Performed at: [facility] [employer] [id number] Director: Yuri Osullivan PhD, Phone: [phone] at: [facility] [employer] [id number] Director: Christine Pham MD, Phone: [phone] Antibody0.3 AI 0.0-0.9UK Healthcarecl-70 (Scleroderma) Antibody<0.2 AI 0.0-0.9UK Healthcareignal Recognition Particle (SRP) NegativeNegativeProvidence HospitalComment on above:This test was developed and its performance characteristicsdetermined by [employer]. It has not been cleared orapproved by the Food and Drug Administration.Performed at: [facility] [employer] [address] [id number] Director: Juan Cruz MD, Phone: [phone] 3 Ab [Units/volume] in Serum by ImmunoassayOrdered By: Oz Kincaid on 49-72-3685Oacndiemwc 3 Ab IA Qn (S)<0.2 units 0.0-0.9Providence HospitalRibosomal P Ab [Units/volume] in Serum Ordered By: Oz Kincaid on 64-13-4854Aussgsmzl P Ab Qn (S)<0.2 AI0.0-0.9UK Healthcareerum Sushma-1 extractable nuclear antibody assay (units/volume)Ordered By: Oz Kincaid on 92-17-9423Zw-1 extractable nuclear Ab Qn (S)<0.2 AI0.0-0.9UK Healthcareerum Sjogrens syndrome-A extractable nuclear antibody assay (units/volume)Ordered By: Oz Kincaid on 72-72-7509Elqjjomc syndrome-A extractable nuclear Ab Qn (S)<0.2 AI0.0-0.9 UK Healthcareerum Sjogrens syndrome-B extractable nuclear antibody assay (units/volume)Ordered By: Oz Kincaid on 68-81-3845Taknglqk syndrome-B extractable nuclear Ab Qn (S)<0.2 AI0.0-0.9UK Healthcareerum Fritz extractable nuclear antigen (ARIELLE) antibody assay (units/volume)Ordered By: Oz Kincaid on 48-70-3877Fyctl extractable nuclear Ab Qn (S)<0.2 AI0.0-0.9UK Healthcareerum centromere protein B antibody assay (units/volume)Ordered By: Oz Kincaid on 74-40-5998Hklqayuqzf protein B Ab Qn (S)<0.2 AI0.0-0.9Providence HospitalComment on above:Performed at: [facility] [id number] Director: Yuri Osullivan PhD, Phone: [phone] classic neutrophil cytoplasmic antibody titer by immunofluorescenceOrdered By: Oz Kincaid on 96-48-3362Jaoohcjpfw cytoplasmic Ab.classic IF (S) [Titer]<1:20 titerNeg:<1:20 UK Healthcareerum histone IgG antibody assay by immunoassay (units/volume)Ordered By: Oz Kincaid on 43-99-6212Jutkevh IgG IA Qn (S)0.6 Units 0.0-0.9Providence HospitalComment on above:Negative <1.0 Weak Positive 1.0 - 1.5 Moderate Positive 1.6 - 2.5 Strong Positive >2.5Performed at: [facility] [id number] Director: Christine Scott, Phone: [phone] homogeneous pattern antinuclear antibody (PO) titerOrdered By: Oz Kincaid on 24-88-7729Gkdzoeyewq nuclear Ab pattern (S) [Titer]N/AFMercy Health – The Jewish Hospitalerum mitochondria M2 IgG antibody assay (units/volume)Ordered By: Oz Kincaid on 21-29-4378Hcsxtstsfyxi M2 IgG Qn (S)<20.0 Units0.0-20.0Providence HospitalComment on above: Negative 0.0 - 20.0 Equivocal 20.1 - 24.9 Positive >24.9Mitochondrial (M2) Antibodies are found in 90-96% ofpatients with primary biliary cirrhosis.Performed at: [facility] [facility] [id number] Director: Yuri Osullivan PhD, Phone: [phone] nuclear antibody titerOrdered By: Oz Kincaid on 80-96-1424Rtxdfbg Ab (S) [Titer]Positive Abnormal.Providence HospitalComment on above:Negative <1:80 Borderline 1:80 Positive >1:80Serum speckled pattern antinuclear antibody (PO) titerOrdered By: Oz Kincaid on 94-99-2835Oxabqigg nuclear Ab pattern (S) [Titer] 1:320High.Providence HospitalComment on above:ICAP nomenclature: AC-2,4,5,29Aspartate aminotransferase [Enzymatic activity/volume] in Serum or PlasmaOrdered By: Jonas Ch on 13-58-8778RYT [Catalytic activity/Vol]45 U/WGlmp66-89QaykurkdeProvidence HospitalCalcium [Mass/volume] in Serum or PlasmaOrdered By: Jonas Ch on 85-45-2413Ddaufcm [Mass/Vol]10.7 mg/dLHigh 8.6-10.3FWadsworth-Rittman HospitalCarbon dioxide, total [Moles/volume] in Serum or PlasmaOrdered By: Jonas Ch on 14-34-1560EC0 [Moles/Vol]27.7 mmol/L21.0-31.0Providence HospitalChloride [Moles/volume] in Serum or PlasmaOrdered By: Jonas Ch on 96-47-4760Selhuvyq [Moles/Vol]102 mmol/A61-795MslzgycytProvidence HospitalCreatinine [Mass/volume] in Serum or PlasmaOrdered By: Jonas Ch on 51-34-9669Vmvnkgusdk [Mass/Vol]1.02 mg/dL0.60-1.20Providence HospitalCreatinine [Mass/volume] in Urine Ordered By: Angelique Russell on 48-43-3618Xrmctrrkot (U) [Mass/Vol]123.00 mg/dL Providence HospitalComment on above:No reference range established Glucose [Mass/volume] in Serum or PlasmaOrdered By: Jonas Ch on 74-76-8026Wrwdsvx [Mass/Vol]158 mg/mDPpyb74-273IporebtobProvidence Hospital Comment on above:ADA recommended reference rangeRandom Glucose Reference Range is dependent on time and content of last meal. Glucose of more than 200 mg/dL in a nonstressed, ambulatory subject supports the diagnosisof Diabetes Mellitus. Microalbumin [Mass/volume] in UrineOrdered By: Angelique Russell on 49-96-4301Rmkrvsp DL <= 20 mg/L (U) [Mass/Vol]3.0 mg/dLHigh0.0-1.8Providence HospitalNo Panel InformationOrdered By: Jonas Ch on 32-51-0316Juuxmcfbo GFR (CKD-EPI)> 60.0 mL/MinProvidence HospitalPharmacy Creatinine Clearance (ChemN/AFWadsworth-Rittman HospitalPotassium [Moles/volume] in Serum or PlasmaOrdered By: Jonas Ch on 26-22-6989Bmtbopqrg [Moles/Vol]4.1 mmol/L3.5-5.1FMercy Health – The Jewish Hospitalerum or plasma anion gap determinationOrdered By: Jonas Ch on 27-25-1876Drxqe gap [Moles/Vol]12.4 mmol/L6.0-15.0UK Healthcareodium [Moles/volume] in Serum or PlasmaOrdered By: Jonas Ch on 10-06-5143Ebdccp [Moles/Vol]138 mmol/L 136-145Providence HospitalThyrotropin [Units/volume] in Serum or PlasmaOrdered By: Jonas Ch on 21-71-5699QHR Qn3.39 m[IU]/L0.45-5.33 Providence HospitalUrea nitrogen [Mass/volume] in Serum or Plasma Ordered By: Jonas Ch on 56-54-3062Sxrd nitrogen [Mass/Vol]20 mg/dL7-25 Providence HospitalUrine microalbumin/creatinine mass ratioOrdered By: Angelique Russell on 66-15-2423Jlxlafp/Creatinine DL <= 20 mg/L (U) [Mass ratio] 24.4 mg/g0.0-30.0Providence HospitalComment on above:30-300 mg/g indicates an increased risk for diabetic nephropathy. Greater than 300 mg/g is consistent with clinical nephropathy. (Am. J. Kidney Disease 1995, 25:107)No Panel Informationon 05-39-6350Zfwazil Pbdipdg163QblomxrjlProvidence HospitalECG [address] [place] 79-15-8725Kazxrk sinus rhythm Normal EKG QTc 457 [facility] Work Phone: basophils Auto (Bld) [#/Vol]Ordered By: Chaka Frye on 82-96-2794Hooiuisdx (Bld) [#/Vol]0.0 10*3/uL0.0-0.2FWadsworth-Rittman HospitalBasophils/100 WBC Auto (Bld)Ordered By: Chaka Frye on 32-35-5617Mecgdmnns/100 WBC (Bld)0.5 %.Providence HospitalCalcium [Mass/volume] in Serum or PlasmaOrdered By: Chaka Frye on 07-46-5134Ldgtmpi [Mass/Vol]9.5 mg/dL8.6-10.3FWadsworth-Rittman Hospital Carbon dioxide, total [Moles/volume] in Serum or PlasmaOrdered By: Chaka Frye on 33-31-1464XO6 [Moles/Vol]30.0 mmol/L21.0-31.0Providence HospitalChloride [Moles/volume] in Serum or PlasmaOrdered By: Chaka Frye on 84-06-6825Epssutyo [Moles/Vol]103 mmol/D03-639LdkycunzgProvidence HospitalCreatinine [Mass/volume] in Serum or PlasmaOrdered By: Chaka Frye on 00-60-0567Tfxivabwgv [Mass/Vol]0.98 mg/dL0.60-1.20Providence HospitalEosinophils Auto (Bld) [#/Vol]Ordered By: Chaka Frye on 35-67-0583Blazqchxmrx (Bld) [#/Vol]0.4 10*3/uL0.0-0.45Providence HospitalEosinophils/100 WBC Auto (Bld)Ordered By: Chaka Frye on 04-01-2202Utcxkmsxqta/100 WBC (Bld)5.2 %.Providence HospitalErythrocyte distribution width Auto (RBC) [Ratio]Ordered By: Chaka Frye on 48-60-2941Fcneehsnqim distribution width (RBC) [Ratio]14.0 % 11.9-15.3FWadsworth-Rittman HospitalGlucose Glucometer (BldC) [Mass/Vol] Ordered By: Chaka Frye on 79-57-4549Snpvsjp [Mass/Vol]137 mg/dL Providence HospitalComment on above:Random Glucose Reference Range is dependent on time and content of last meal. Glucose of more than 200 mg/dL in a nonstressed, ambulatory subject supports the diagnosis of Diabetes Mellitus.Glucose [Mass/volume] in Serum or PlasmaOrdered By: Chaka Frye on 76-43-1272Iujfjzq [Mass/Vol]102 mg/dKOlxp51-064HvkestofdProvidence HospitalComment on above:ADA recommended reference rangeRandom Glucose Reference Range is dependent on time and content of last meal. Glucose of more than 200 mg/dL in a nonstressed, ambulatory subject supports the diagnosisof Diabetes Mellitus.Hematocrit Auto (Bld) [Volume fraction]Ordered By: Chaka Frye on 26-87-6011Cuoycexwkn (Bld) [Volume fraction]44.6 %34.0-46.4FWadsworth-Rittman HospitalHemoglobin [Mass/volume] in BloodOrdered By: Chaka Frye on 46-83-5558Woypxbgack (Bld) [Mass/Vol]14.6 g/dL11.8-15.4FWadsworth-Rittman HospitalLeukocytes [#/volume] corrected for nucleated erythrocytes in Blood by Automated counOrdered By: Chaka Frye on 47-16-6121NHI corrected for nucl RBC Auto (Bld) [#/Vol]7.4 10*3/uL3.8-11.6FWadsworth-Rittman HospitalLymphocytes Auto (Bld) [#/Vol]Ordered By: Chaka Frye on 96-54-1741Rrmyfvwjgcm (Bld) [#/Vol]2.3 10*3/uL1.00-4.8Providence HospitalLymphocytes/100 WBC Auto (Bld)Ordered By: Chaka Frye on 19-25-3534Otiayrbfvfj/100 WBC (Bld)30.8 %.[facility] Auto (RBC) [Entitic mass]Ordered By: Chaka Frye on 11-47-3943DUJ (RBC) [Entitic mass]32.2 pg24.7-34.3FWadsworth-Rittman HospitalMCHC Auto (RBC) [Mass/Vol]Ordered By: Chaka Frye on 96-46-0513NRLB (RBC) [Mass/Vol]32.8 g/dL32.0-35.0Providence HospitalMCV Auto (RBC) [Entitic vol] Ordered By: Chaka Frye on 45-47-0227WPM (RBC) [Entitic vol]98.1 fL 80-100Providence HospitalMagnesium [Mass/volume] in Serum or PlasmaOrdered By: Chaka Frye on 92-43-2006Sljvypmrq [Mass/Vol]1.9 mg/dL 1.9-2.7FWadsworth-Rittman HospitalMonocytes Auto (Bld) [#/Vol]Ordered By: Chaka Frye on 55-25-6164Cvkhcgqnv (Bld) [#/Vol]0.8 10*3/uL0.0-0.8 Providence HospitalMonocytes/100 WBC Auto (Bld)Ordered By: Chaka Frye on 16-65-9494Nwfojprhz/100 WBC (Bld)11.0 %.Providence HospitalNeutrophils Auto (Bld) [#/Vol]Ordered By: Chaka Frye on 47-70-0675Amklvijvxgu (Bld) [#/Vol]3.9 10*3/uL1.8-7.7FWadsworth-Rittman HospitalNeutrophils/100 WBC Auto (Bld)Ordered By: Chaka Frye on 37-36-4027Zyuvhrmbcmo/100 WBC (Bld)52.5 %.Providence HospitalNo Panel InformationOrdered By: Chaka Frye on 11-12-2023 Estimated GFR (CKD-EPI)> 60.0 mL/MinProvidence HospitalPharmacy Creatinine Clearance (Chem63.39Providence HospitalNucleated erythrocytes [Presence] in Blood by Automated countOrdered By: Chaka Frye on 55-54-7339Flrvyvgcu RBC Auto Ql (Bld)0.1 /100{WBC}0-0.5FWadsworth-Rittman HospitalPlatelet mean volume Auto (Bld) [Entitic vol]Ordered By: Chaka Frey on 91-81-4199Djsdrmsi mean volume (Bld) [Entitic vol]9.1 fL 6.3-10.7FWadsworth-Rittman HospitalPlatelets Auto (Bld) [#/Vol]Ordered By: Chaka Frye on 15-31-2622Jtxlkmqzw (Bld) [#/Vol]155 10*3/uL198-700 [facility] HospitalPotassium [Moles/volume] in Serum or Plasma Ordered By: Chaka Frye on 61-76-8428Bwutljjmb [Moles/Vol]4.4 mmol/L 3.5-5.1FWadsworth-Rittman HospitalRBC Auto (Bld) [#/Vol]Ordered By: Chaka Frye on 65-64-5765KGD (Bld) [#/Vol]4.54 10*6/uL3.60-5.00UK Healthcareerum or plasma anion gap determinationOrdered By: Chaka Frye on 22-70-7562Gqlyt gap [Moles/Vol]10.4 mmol/L6.0-15.0 [facility] Healthcareodium [Moles/volume] in Serum or PlasmaOrdered By: Chaka Frye on 16-95-5018Qvijrt [Moles/Vol]139 mmol/N067-586 [facility] HospitalUrea nitrogen [Mass/volume] in Serum or Plasma Ordered By: Chaka Frye on 49-01-8148Jgnr nitrogen [Mass/Vol]18 mg/dL 7-25Prov[facility] HospitalWBC Auto (Bld) [#/Vol]Ordered By: Chaka Frye on 02-05-6631RWD (Bld) [#/Vol]7.4 10*3/uL3.8-11.6FWadsworth-Rittman HospitalGlucose mean value [Mass/volume] in Blood Estimated from glycated hemoglobinOrdered By: Jluis Campos on 17-57-9726Olrnhik glucose Estimated from glycated hemoglobin (Bld) [Mass/Vol]143 mg/dLProvidence Hospital Hemoglobin A1c percentageOrdered By: Jluis Campos on 13-79-0591MpT7x (Bld) [Mass fraction]6.6 %High4.3-5.6FWadsworth-Rittman HospitalComment on above: Increased risk for diabetes: 5.7 - 6.4diabetes: >6.4glycemic control for adults with diabetes: <7.0LACTATE AND PYRUVATEon 62-28-8359HAPNHM ACID, PLASMA.NOMS HealthcareComment on above:Test not performed. Supernatant is required. CONTACTED YOUR FACILity on 11-05-2023 PYRUVIC ACID, BLOOD.NOMS HealthcareComment on above:Test not performedNOCarondelet HealthNo Panel InformationOrdered By: Kirt Renae on 40-90-6802ISW Antibody 0.2 AI0.0-0.9UK Healthcareerum Sushma-1 extractable nuclear antibody assay (units/volume)Ordered By: Kirt Renae on 84-46-6194Fn-1 extractable nuclear Ab Qn (S)<0.2 AI0.0-0.9[facility] Comment on above:Performed at: [facility] CenterVrbwiq[address] [place] [id number] Director: Yuri Osullivan PhD, Phone: [phone] Sjogrens syndrome-A extractable nuclear antibody assay (units/volume)Ordered By: Kirt Renae on 92-36-8181Ivtoehil syndrome-A extractable nuclear Ab Qn (S)<0.2 AI 0.0-0.9UK Healthcareerum Sjogrens syndrome-B extractable nuclear antibody assay (units/volume)Ordered By: Kirt Renae on 11-11-2023 Sjogrens syndrome-B extractable nuclear Ab Qn (S)<0.2 AI0.0-0.9UK Healthcareerum or plasma thyroglobulin antibody assay (units/volume)Ordered By: Kirt Renae on 54-86-7838Tmxxvvxsbynup Ab Qn[IU]/mL 0.0-0.9[facility] HospitalComment on above:Thyroglobulin Antibody measured by Mami CoulterMethodologyIt should be noted that the presence of thyroglobulinantibodies may not be pathogenic nor diagnostic, especiallyat very low levels. The assay chemical tester has found thatfour percent of individuals without evidence of thyroiddisease or autoimmunity will have positive TgAb levels upto 4 IU/mL.Performed at: [facility] CenterLerygp[address] [place], [place] [id number] Director: Yuri Osullivan PhD, Phone: [phone] or plasma thyroperoxidase antibody assay (units/volume)Ordered By: Kirt Renea on 98-34-4705WID Ab Qn[IU]/mL0-34Prov[facility] HospitalThyroxine (T4) free [Mass/volume] in Serum or PlasmaOrdered By: Kirt Renae on 04-67-2385Ebde T4 [Mass/Vol]0.83 ng/dL0.61-1.12[facility] Triiodothyronine (T3) Free [Mass/volume] in Serum or PlasmaOrdered By: Kirt Renae on 64-15-1695Zbtj T3 [Mass/Vol]2.60 pg/mL2.50-3.90Prov[facility] HospitalAlanine aminotransferase [Enzymatic activity/volume] in Serum or PlasmaOrdered By: Rl Villavicencio on 47-79-7077PFR [Catalytic activity/Vol]19 U/L 7-52Prov[facility] HospitalAlbumin [Mass/volume] in Serum or Plasma by Bromocresol green (BCG) dye binding methoOrdered By: Rl Villavicencio on 11-10-2023 Albumin BCG dye [Mass/Vol]4.2 g/dL3.5-5.7FW[facility] Hospital Alkaline phosphatase [Enzymatic activity/volume] in Serum or PlasmaOrdered By: Rl Villavicencio on 08-80-7845NMZ [Catalytic activity/Vol]60 U/A35-824LxyiynhmdProvidence HospitalAspartate aminotransferase [Enzymatic activity/volume] in Serum or PlasmaOrdered By: Rl Villavicencio on 66-66-3760OUO [Catalytic activity/Vol]29 U/T79-22YcxbmessgProvidence HospitalBacteria [Presence] in Urine by AutomatedOrdered By: Rl Villavicencio on 90-11-4015Iwxutxvc Auto Ql (U)1+ [HPF]HighNone SeenProvidence HospitalBasophils Auto (Bld) [#/Vol] Ordered By: Rl Villavicencio on 10-80-7530Mrdmlwijg (Bld) [#/Vol]0.1 10*3/uL0.0-0.2 [facility] HospitalBasophils/100 WBC Auto (Bld)Ordered By: Rl Villavicencio on 12-26-5481Jyzrsiayq/100 WBC (Bld)0.9 %.Prov[facility] HospitalBilirubin Test strip Ql (U)Ordered By: Rl Villavicencio on 32-29-6519Yaxnohhoi Ql (U)NegativeNegativeProvidence HospitalBilirubin.total [Mass/volume] in Serum or PlasmaOrdered By: Rl Villavicencio on 37-33-2215Qkshvhdmg [Mass/Vol]0.4 mg/dL0.3-1.0Prov[facility] HospitalC reactive protein [Mass/volume] in Serum or PlasmaOrdered By: Kirt Renae on 06-11-4430JAQ [Mass/Vol]< 0.5 mg/dL0.0-0.5FWadsworth-Rittman HospitalCalcium [Mass/volume] in Serum or PlasmaOrdered By: Rl Villavicencio on 99-28-8768Inxlqxm [Mass/Vol]9.6 mg/dL8.6-10.3FWadsworth-Rittman HospitalCarbon dioxide, total [Moles/volume] in Serum or PlasmaOrdered By: Rl Villavicencio on 89-35-5268WU4 [Moles/Vol]25.4 mmol/L21.0-31.0[facility] HospitalChloride [Moles/volume] in Serum or PlasmaOrdered By: Rl Villavicencio on 64-07-5127Sswxsepf [Moles/Vol]105 mmol/H06-437WtlhhjppxProvidence HospitalColor Auto (U) Ordered By: Rl Villavicencio on 89-97-8059Xyffn (U)Light-yellowYellowProvidence HospitalCreatine kinase [Enzymatic activity/volume] in Serum or PlasmaOrdered By: Rl Villavicencio 01-45-0123QB [Catalytic activity/Vol]69 U/L 30-223Prov[facility] HospitalCreatinine [Mass/volume] in Serum or PlasmaOrdered By: Rl Villavicencio 42-98-3990Eqxjcnuvlg [Mass/Vol]0.93 mg/dL 0.60-1.20Prov[facility] HospitalEosinophils Auto (Bld) [#/Vol]Ordered By: Rl Villavicencio on 99-10-1712Nzektvdvupc (Bld) [#/Vol]0.3 10*3/uL0.0-0.45 [facility] HospitalEosinophils/100 WBC Auto (Bld)Ordered By: Rl Villavicencio on 05-85-9126Zgbffzpkyhm/100 WBC (Bld)3.7 %.[facility] HospitalEpithelial cells.squamous [#/area] in Urine sediment by Automated countOrdered By: Rl Villavicencio on 09-36-6079Tfqznpymtk cells.squamous Auto (Urine sed) [#/Area]5-9 [HPF]High0-2FWadsworth-Rittman HospitalErythrocyte distribution width Auto (RBC) [Ratio]Ordered By: Rl Villavicencio on 11-10-2023 Erythrocyte distribution width (RBC) [Ratio]13.5 %11.9-15.3FWadsworth-Rittman HospitalErythrocyte sedimentation rate by Photometric methodOrdered By: Kirt Renae on 25-14-1692YOU Photometric method (Bld) [Velocity]40 mm/hrHigh 0-29Prov[facility] HospitalErythrocytes [#/area] in Urine sediment by Automated countOrdered By: Rl Villavicencio on 95-31-5470WTN Auto (Urine sed) [#/Area]5-9 [HPF]High04FWadsworth-Rittman HospitalFolate [Mass/volume] in Serum or PlasmaOrdered By: Kirt Renae on 58-47-7715Nghzwf [Mass/Vol]19.6 ng/mL>5.9Prov[facility] HospitalComment on above:Folate reference range: >5.9 ng/mlThe WHO technical consultation on folate and vitamin e21oyuzrjz ncies has determined that folate concentrations lessthan 4 ng/ml are considered deficient.Globulin Calc (S) [Mass/Vol]Ordered By: Rl Villavicencio on 11-10-2023 Globulin (S) [Mass/Vol]2.9 g/dLProvidence HospitalGlucose [Mass/volume] in Serum or PlasmaOrdered By: Rl Villavicencio on 61-77-9437Oizudsh [Mass/Vol]95 mg/gR14-469WoiqokfavProvidence HospitalComment on above:ADA recommended reference rangeRandom Glucose Reference Range is dependent on time and content of last meal. Glucose of more than 200 mg/dL in a nonstressed, ambulatory subject supports the diagnosisof Diabetes Mellitus.Glucose [Mass/volume] in Urine by Test stripOrdered By: Rl Villavicencio on 11-10-2023 Glucose Test strip (U) [Mass/Vol]1000 mg/dLHighNormMagruder HospitalHematocrit Auto (Bld) [Volume fraction]Ordered By: Rl Villavicencio on 08-37-1718Kkhybtfvxd (Bld) [Volume fraction]44.9 %34.0-46.4FWadsworth-Rittman HospitalHemoglobin Test strip Ql (U)Ordered By: Rl Villavicencio on 11-10-2023 Hemoglobin Ql (U)NegativeNegBlanchard Valley Health System Bluffton HospitalHemoglobin [Mass/volume] in BloodOrdered By: Rl Villavicencio on 88-69-6271Apzrrmlnuj (Bld) [Mass/Vol]15.0 g/dL11.8-15.4FWadsworth-Rittman HospitalHyaline casts [#/area] in Urine sediment by Automated countOrdered By: Rl Villavicencio on 76-55-4515Fhhpxld casts Auto (Urine sed) [#/Area]None [LPF]0-8Prov[facility] HospitalKetones Test strip Ql (U)Ordered By: Rl Villavicencio on 11-10-2023 Ketones Ql (U)NegativeNegBlanchard Valley Health System Bluffton HospitalLeukocyte clumps [Presence] in Urine by AutomatedOrdered By: Rl Villavicencio on 52-85-4558Alzobxzbk clumps Auto Ql (U)Occasional [LPF]HighNone [facility] Leukocyte esterase [Presence] in Urine by Test stripOrdered By: Rl Villavicencio on 96-94-0995Cctletvbr esterase Test strip Ql (U)4+HighNegBlanchard Valley Health System Bluffton HospitalLeukocytes [#/area] in Urine sediment by Automated countOrdered By: Rl Villavicencio on 92-71-5025IRL Auto (Urine sed) [#/Area]20-49 [HPF]High0-4 [facility] HospitalLeukocytes [#/volume] corrected for nucleated erythrocytes in Blood by Automated counOrdered By: Rl Villavicencio on 08-01-5653XAI corrected for nucl RBC Auto (Bld) [#/Vol]8.5 10*3/uL3.8-11.6FWadsworth-Rittman HospitalLymphocytes Auto (Bld) [#/Vol]Ordered By: Rl Villavicencio on 67-27-0498Jvvwstrixsp (Bld) [#/Vol]2.2 10*3/uL1.00-4.8Prov[facility] HospitalLymphocytes/100 WBC Auto (Bld)Ordered By: Rl Villavicencio on 11-10-2023 Lymphocytes/100 WBC (Bld)26.0 %.[facility] HospitalH Auto (RBC) [Entitic mass]Ordered By: Rl Villavicencio on 68-02-7118AVM (RBC) [Entitic mass]32.6 pg24.7-34.3FWadsworth-Rittman HospitalMCHC Auto (RBC) [Mass/Vol]Ordered By: Rl Villavicencio on 28-96-5479ZNHY (RBC) [Mass/Vol]33.3 g/dL32.0-35.0Prov[facility] HospitalMCV Auto (RBC) [Entitic vol]Ordered By: Rl Villavicencio on 69-62-6258URT (RBC) [Entitic vol]97.8 uE42-553IitraebwlProvidence Hospital Magnesium [Mass/volume] in Serum or PlasmaOrdered By: Rl Villavicencio on 11-10-2023 Magnesium [Mass/Vol]1.7 mg/dLLow1.9-2.7FWadsworth-Rittman HospitalMonocyte distribution width [Entitic volume] in Blood by AutomatedOrdered By: Rl Villavicencio on 57-88-0511Iaavybvf distribution width Auto (Bld) [Entitic vol]19.74 % 0.00-20.00Prov[facility] HospitalMonocytes Auto (Bld) [#/Vol]Ordered By: Rl Villavicencio on 88-81-5783Hjvqdgqxj (Bld) [#/Vol]0.7 10*3/uL0.0-0.8Prov[facility] HospitalMonocytes/100 WBC Auto (Bld)Ordered By: Rl Villavicencio on 73-68-6286Wokcqnydo/100 WBC (Bld)8.2 %.[facility] Neutrophils Auto (Bld) [#/Vol]Ordered By: Rl Villavicencio on 06-11-5398Zkpartgfigs (Bld) [#/Vol]5.2 10*3/uL1.8-7.7FWadsworth-Rittman HospitalNeutrophils/100 WBC Auto (Bld)Ordered By: Rl Villavicencio on 31-87-5365Nihxmhcobfe/100 WBC (Bld) 61.2 %.[facility] HospitalNitrite Test strip Ql (U)Ordered By: Rl Villavicencio on 40-32-5121Qlqlykm Ql (U)NegativeNegBlanchard Valley Health System Bluffton HospitalNo Panel InformationOrdered By: Kirt Renae on 88-07-8261Zaujecw Glucose CommentGlu2: cleaned meterProvidence HospitalNo Panel InformationOrdered By: Rl Villavicencio on 71-11-8994Gesinjbsd GFR (CKD-EPI)> 60.0 mL/MinProvidence HospitalPharmacy Creatinine Clearance (Chem66.28 [facility] HospitalNucleated erythrocytes [Presence] in Blood by Automated countOrdered By: Rl Villavicencio on 14-94-6720Jiveptwrx RBC Auto Ql (Bld) 0.1 /100{WBC}0-0.5FWadsworth-Rittman HospitalPlatelet mean volume Auto (Bld) [Entitic vol]Ordered By: Rl Villavicencio on 91-22-2478Hnxgcrjz mean volume (Bld) [Entitic vol]8.7 fL6.3-10.7FWadsworth-Rittman HospitalPlatelets Auto (Bld) [#/Vol]Ordered By: Rl Villavicencio on 52-31-2737Gtatrugni (Bld) [#/Vol]149 10*3/hJOvk609-773WbctepkspProvidence HospitalPotassium [Moles/volume] in Serum or PlasmaOrdered By: Rl Villavicencio on 73-18-1465Vydjrhyuo [Moles/Vol]4.6 mmol/L3.5-5.1FWadsworth-Rittman HospitalComment on above:Hemolysis is present at a level that could interfere with the result.Contact lab if redraw is requiredProtein Test strip (U) [Mass/Vol]Ordered By: Rl Villavicencio on 11-10-2023 Protein (U) [Mass/Vol]NegativeNegBlanchard Valley Health System Bluffton HospitalProtein [Mass/volume] in Serum or PlasmaOrdered By: Rl Villavicencio on 76-45-6508Genmqhc [Mass/Vol]7.1 g/dL6.4-8.9Prov[facility] HospitalRBC Auto (Bld) [#/Vol] Ordered By: Rl Villavicencio on 77-78-1435VSJ (Bld) [#/Vol]4.59 10*6/uL3.60-5.00 [facility] Healthcareerum or plasma albumin/globulin mass ratio Ordered By: Rl Villavicencio on 04-36-5720Jftmbyo/Globulin [Mass ratio]1.4 {ratio} [facility] Healthcareerum or plasma anion gap determinationOrdered By: Rl Villavicencio on 22-36-8690Gtxhx gap [Moles/Vol]11.2 mmol/L6.0-15.0UK Healthcareodium [Moles/volume] in Serum or PlasmaOrdered By: Rl Villavicencio on 77-15-2723Ikkbzd [Moles/Vol]137 mmol/N614-665UqxquuvccUK Healthcarepecific gravity Test strip (U) [Rel density]Ordered By: Rl Villavicencio on 03-42-7787Qchxgrxa gravity (U) [Rel density]1.0071.001-1.030Prov[facility] HospitalThyrotropin [Units/volume] in Serum or PlasmaOrdered By: Jluis Campos on 20-06-1981LFE Qn5.73 m[IU]/LHigh0.45-5.33[facility] HospitalUrea nitrogen [Mass/volume] in Serum or PlasmaOrdered By: Rl Villavicencio on 65-76-0179Omqf nitrogen [Mass/Vol]14 mg/dL7-25Prov[facility] HospitalUrine appearanceOrdered By: Rl Villavicencio on 44-82-2648Wctdbbqulh (U)Clear ClearProvidence HospitalUrine culture routineOrdered By: Rl Vlilavicencio on 12-40-9428Cdwzzcxm identified Cx Nom (U)2 DaysProvidence HospitalUrobilinogen Test strip (U) [Mass/Vol]Ordered By: Rl Villavicencio on 61-83-1520Vidfhguarawi (U) [Mass/Vol]Normal mg/dLNormalProvidence HospitalVitamin B12 ser/plasOrdered By: Kirt Renae on 11-10-2023 Cobalamin (Vitamin B12) [Mass/Vol]306 pg/dG469-511MwzllhhrkProvidence HospitalVitamin D+Metabolites [Mass/volume] in Serum or PlasmaOrdered By: Jluis Campos on 75-60-9636Zvbrmmm D+Metabolites [Mass/Vol]61.3 ng/zQ83-536KlzzobngpProvidence HospitalComment on above:Hemolysis is present at a level that could interfere with the result.Contact lab if redraw is requiredVITAMIN D STATUS 25(OH)VITAMIN D RANGE (ng/mL) Deficient <20 Insufficient 20 to <30Sufficient 30 to 100Reference: Sandra MF,Felisha SCANLON, Leon SHERWOOD, et al. Evaluation,treatment, and prevention of vitamin D deficiency; an Endocrine Society clinical practice guideline. JCEM. 2010;96(7):1911-30.WBC Auto (Bld) [#/Vol]Ordered By: Rl Villavicencio on 30-95-9703ZHA (Bld) [#/Vol]8.5 10*3/uL 3.8-11.6FWadsworth-Rittman HospitalpH Test strip (U)Ordered By: Rl Villavicencio on 57-62-2824yC (U)6.0 [pH]5.0-9.0Prov[facility] HospitalGlucose Glucometer (BldC) [Mass/Vol]Ordered By: OSORIO WHITE on 93-63-4950Eatjiuf [Mass/Vol]139 mg/dLProvidence HospitalComment on above:Random Glucose Reference Range is dependent on time and content of last meal. Glucose of more than 200 mg/dL in a nonstressed, ambulatory subject supports the diagnosis of Diabetes Mellitus.Carbon dioxide, total [Moles/volume] in Serum or PlasmaOrdered By: Jonas Ch on 46-74-9039ZD1 [Moles/Vol]28.6 mmol/L 21.0-31.0Prov[facility] HospitalChloride [Moles/volume] in Serum or PlasmaOrdered By: Jonas Ch on 46-43-8221Dacvlvpg [Moles/Vol]104 mmol/L 98-107Prov[facility] HospitalPotassium [Moles/volume] in Serum or PlasmaOrdered By: Jonas Ch on 25-06-6917Rbcgojdgv [Moles/Vol]4.6 mmol/L 3.5-5.1FMercy Health – The Jewish Hospitalerum or plasma anion gap determination Ordered By: Jonas Ch on 47-48-3134Jblxi gap [Moles/Vol]11.0 mmol/L 6.0-15.0UK Healthcareodium [Moles/volume] in Serum or PlasmaOrdered By: Jonas Ch on 09-71-9655Siilif [Moles/Vol]139 mmol/L 136-145Prov[facility] HospitalAlanine aminotransferase [Enzymatic activity/volume] in Serum or PlasmaOrdered By: Oz Kincaid on 10-66-8876LME [Catalytic activity/Vol]23 U/L7-52Prov[facility] HospitalAlbumin [Mass/volume] in Serum or PlasmaOrdered By: Oz Kincaid on 88-92-6467Bjklykt [Mass/Vol]4.2 g/dL2.9-4.4FWadsworth-Rittman HospitalAlbumin/Protein.total in 24 hour Urine by ElectrophoresisOrdered By: Oz Kincaid on 09-17-6342Qawedtv Elph (24H U) [Mass fraction]35.7 %.Providence HospitalAlpha tocopherol [Mass/volume] in Serum or PlasmaOrdered By: Oz Kincaid on 10-30-2023 Alpha tocopherol [Mass/Vol]8.7 mg/LLow9.0-29.0[facility] Comment on above:This test was developed and its performance characteristicsdetermined by [employer]. It has not been cleared orapproved by the Food and Drug Administration.Aspartate aminotransferase [Enzymatic activity/volume] in Serum or PlasmaOrdered By: Oz Kincaid on 30-77-9601BRE [Catalytic activity/Vol]26 U/P43-10LvwpjdhfpProvidence HospitalBorrelia burgdorferi Ab [Interpretation] in SerumOrdered By: Oz Kincaid on 10-30-2023. burgdorferi Ab (S) [Interp]N/[facility] SouthBorrelia burgdorferi IgG Ab [Presence] in Serum or Plasma by ImmunoassayOrdered By: Oz Kincaid on 10-30-2023. burgdorferi IgG IA QlN/[facility] Borrelia burgdorferi IgG+IgM Ab [Presence] in Serum by ImmunoassayOrdered By: zO Kincaid on 10-30-2023. burgdorferi IgG+IgM IA Ql (S)NegativeNegativeProvidence HospitalComment on above:Lyme antibodies not detected. Reflex testing is notindicated.No laboratory evidence of infection with B. burgdorferi(Lyme disease). Negative results may occur in patientsrecently infected (less than or equal to 14 days) with B.burgdorferi. If recent infection is suspected, repeattesting on a new sample collected in 7 to 14 days isrecommended.Performed at: [facility] [id number] Director: Yuri Osullivan PhD, Phone: [phone] antibodies not detected. Reflex testing is notindicated.No laboratory evidence of infection with B. burgdorferi(Lyme disease). Negative results may occur in patientsrecently infected (less than or equal to 14 days) with B.burgdorferi. If recent infection is suspected, repeattesting on a new sample collected in 7 to 14 days isrecommended.Performed at: [facility] [id number] Director: Yuri Osullivan PhD, Phone: [employer] Lyme antibodies not detected.Reflex testing is notindicated.No [...] collected in7 to 14 days isrecommended.Performed at: [facility] [place] [id number] Director: Yuri Osullivan PhD, Phone: [phone] burgdorferi IgM Ab [Presence] in Serum or Plasma by ImmunoassayOrdered By: Oz Kincaid on 10-30-2023. burgdorferi IgM IA QlN/A [facility] HospitalC reactive protein [Mass/volume] in Serum or Plasma by High sensitivity methodOrdered By: Oz Kincaid on 27-54-1516FGG High sensitivity method [Mass/Vol]2.2 mg/LHigh0.0-0.9Prov[facility] HospitalComment on above:Cardiovascular Risk Classification (AHA/CDC)hsCRP < 1.0 [...] CVD risk.CT biopsyOrdered By: Oz Kincaid on 30-92-6864DA biopsy5.0 U/L3.3-10.3FWadsworth-Rittman [facility] Comment on above:Performed at: [facility] [place] [id number] Director: Yuri Osullivan PhD, Phone: [phone] kinase [Enzymatic activity/volume] in Serum or PlasmaOrdered By: Oz Kincaid on 10-30-2023 CK [Catalytic activity/Vol]46 U/C34-412CvkwzaspwProvidence Hospital Erythrocyte sedimentation rate by Photometric methodOrdered By: Oz Kincaid on 81-33-5976ESA Photometric method (Bld) [Velocity]26 mm/hr0-29Providence HospitalFolate [Mass/volume] in Serum or PlasmaOrdered By: Oz Kincaid on 01-48-8884Lvbysd [Mass/Vol]34.0 ng/mL>5.9[facility] Comment on above:Folate reference range: >5.9 ng/mlThe WHO technical consultation on folate and vitamin q21bvtqbpotfasg has determined that folate concentrations lessthan 4 ng/ml are considered deficient.Gamma globulin/Protein.total in 24 hour Urine by ElectrophoresisOrdered By: zO Kincaid on 72-94-5482Jomnp globulin Elph (24H U) [Mass fraction]23.2 %.Prov[facility] HospitalGamma-tocopherol measurement (mass/volume)Ordered By: Oz Kincaid on 64-93-3983Egyat tocopherol [Mass/Vol]0.7 mg/L0.5-4.9[facility] HospitalComment on above:This test was developed and its performance characteristicsdetermined by [facility]. It has not been cleared orapproved by the Food and Drug Administration.Reference intervals for alpha and gamma-tocopheroldetermined from National Health and Nutrition ExaminationSurvey, 7804-7267. Individuals with alpha-tocopherol levelsless than 5.0 mg/L are considered vitamin E deficient.Glucose mean value [Mass/volume] in Blood Estimated from glycated hemoglobinOrdered By: Oz Kincaid on 10-30-2023 Average glucose Estimated from glycated hemoglobin (Bld) [Mass/Vol]143 mg/dL [facility] HospitalHemoglobin A1c percentageOrdered By: Oz Kincaid on 62-95-3157EdV1n (Bld) [Mass fraction]6.6 %High4.3-5.6FWadsworth-Rittman HospitalComment on above:Increased risk for diabetes: 5.7 - 6.4diabetes: >6.4glycemic control for adults with diabetes: <7.0IgA [Mass/volume] in Serum or PlasmaOrdered By: Oz Kincaid on 26-97-8341PvC [Mass/Vol]265 mg/lP83-594 [facility] HospitalIgG [Mass/volume] in Serum or PlasmaOrdered By: Oz Kincaid on 46-25-9730HqY [Mass/Vol]1034 mg/fU909-6232DalannixeProvidence HospitalIgM [Mass/volume] in Serum or PlasmaOrdered By: Oz Kincaid on 10-15-7635UvB [Mass/Vol]48 mg/xN02-341VufyruwfvProvidence HospitalComment on above:Performed at: [facility] [id number] Director: Yuri Osullivan PhD, Phone: [phone] for UrineOrdered By: Oz Kincaid on 59-39-9277Rkddzqjyjkwnrh Immunofixation (U) [Interp]See comment.Prov[facility] HospitalComment on above:No monoclonality detected.Performed at: [facility]FunifiChristian [facility] CenterHayduh[address] [place], [place] [id number] Director: Yuri Osullivan PhD, Phone: [phone] Panel InformationOrdered By: Oz Kincaid on 52-91-9932Tqfq-Nuclear Antibody Comment 2See comment.Prov[facility] HospitalComment on above:Pattern Potential Disease Association Homogeneous Systemic Lupus Erythematosus, Drug Induced Systemic Lupus Erythematosus, Chronic Autoimmune hepatitis, Juvenile Idiopathic Arthritis Speckled Sjogren Syndrome, Systemic Lupus Erythematosus, Subacute Cutaneous Lupus, Lupus, Congenital Heart Block, Mixed Connective Tissue Disease, Scleroderma-diffuse, Scleroderma- Autoimmune Myositis Overlap Syndrome, Systemic Lupus Aplcofzkjzvbt-Wjyphhhpqcs-Dsyfagalzy Myositis Overlap Syndrome, Systemic Autoimmune Rheumatic Disease, [...] Cytopenias, Linear Scleroderma, Antiphospholipid Syndrome Performed at: [facility] [address] [id number] Director: Christine Pham MD, Phone: [phone] at: [facility] [id number] [place], [place] [id number] Director: Yuri Osullivan PhD, Phone: [phone] Potential Disease Association Homogeneous Systemic Lupus Erythematosus, Drug Induced Systemic Lupus Erythematosus, Chronic Autoimmune hepatitis, Juvenile Idiopathic Arthritis Speckled Sjogren Syndrome, Systemic Lupus Erythematosus, Subacute Cutaneous Lupus, Lupus, Congenital Heart Block, Mixed Connective Tissue Disease, Scleroderma-diffuse, Scleroderma- Autoimmune Myositis Overlap Syndrome, Systemic Lupus Wfquviwcpusmv-Rdtbowdfifz-Ijjmakwbsx Myositis Overlap Syndrome, Systemic Autoimmune Rheumatic Disease, [...] Cytopenias, Linear Scleroderma, Antiphospholipid Syndrome Performed at: [facility] [address] [id number] Director: Christine Pham MD, Phone: [phone] at: [address] [id number] Director: Yuri Osullivan PhD, Phone: [phone] Pattern Potential Disease Association Homogeneous Systemic Lupus Erythematosus, Drug Induced Systemic Lupus Erythematosus, Chronic Autoimmune hepatitis, Juvenile Idiopathic Arthritis Speckled Sjogren Syndrome, Systemic Lupus Erythematosus, Subacute Cutaneous Lupus, Lupus, Congenital Heart Block, Mixed ConnectiveTissue Disease, Scleroderma-diffuse, Scleroderma- Autoimmune Myositis Overlap Syndrome, Systemic Lupus Vciymweltuxsa-Stwvlbstiaq-Sxfexvlsyf Myositis Overlap Syndrome, Systemic Autoimmune Rheumatic Disease, Undifferentiated Connective Tissue Disease Nucleolar Systemic Sclerosis, Scleroderma-Autoimmune Myositis Overlap Syndrome, Sjogren Syndrome, Raynaud phenomenon, Pulmonary Arterial Hypertension, Systemic Autoimmune Rheumatic Disease, Cancer Centromere Scleroderma-CREST, Limited Cutaneous SSc, Raynaud's Phenomenon, Primary Biliary Cholangitis Nuclear Dot Primary Biliary Cholangitis Nuclear Primary Biliary Cholangitis, AutoimmuneMembrane Hepatitis/Liver disease, Systemic Autoimmune Rheumatic Disease, Autoimmune Cytopenias, Linear Scleroderma, AntiphospholipidSyndrome Performed at: - [facility] [address] [id number] Director: Yuri Osullivan PhD, Phone: [phone] at: - [facility] [address] [place], [place] [id number] Director: Christine Scott, Phone: [phone] --- 11/06/23 1236 ---PO IFA Note 1 previously reported as: Pattern PotentialDisease Association Homogeneous Systemic Lupus Erythematosus, Drug Induced Systemic Lupus Erythematosus, Chronic Autoimmune hepatitis, Juvenile Idiopathic Arthritis Speckled Sjogren Syndrome, Systemic Lupus Erythematosus, Subacute Cutaneous Lupus, Lupus, Congenital Heart Block, Mixed Connective Tissue Disease, Scleroderma-diffuse, Scleroderma- Autoimmune Myositis Overlap Syndrome, Systemic Lupus Cnttgnbvmoxyr-Fccnjvpapbx-Zolpmeorvl Myositis Overlap Syndrome, Systemic Auto immune Rheumatic [...] Linear Scleroder (more content not included)... Lactate/Pyruvate InterpretationN/[facility] SouthPlasma Lactic Acid, VenousSee comment.[facility] HospitalComment on above:Test not performed. Supernatant is required.CONTACTED YOUR FACILity on 11-05-2023 Protein Electrophoresis M-SpikeNot observed g/dLNot ObservedProvidence HospitalProtein Electrophoresis NoteSee comment.[facility] HospitalComment on above:Protein electrophoresis scan will follow via computer,mail, or online merchandising manager delivery.Pyruvic AcidSee comment.[facility] HospitalComment on above:Test not performedSerum ImmunofixationSee comment .Providence HospitalComment on above:No monoclonality detected. Urine Random Prot Electrophor NoteSee comment.[facility] Comment on above:Protein electrophoresis scan will follow via computer,mail, or online merchandising manager delivery.Performed at: [facility] [employer] [id number] Director: Yuri Osullivan PhD, Phone: [phone] Blood Zinc 909 ug/aQSuey483-210XqsmpgaapProvidence HospitalComment on above:This test was developed and its performance characteristicsdetermined by [employer]. It has not been cleared orapproved by the Food and Drug Administration.Performed at: [facility] [address] [id number] Director: Christine Pham MD, Phone: [phone] test was developed and its performance characteristicsdetermined by [employer]. It has not been cleared orapproved by the Food and Drug Administration.Performed at: [address] [id number] Director: Christine Pham MD, Phone: [phone] This test was developed and its performance characteristicsdetermined by [employer]. It has not been cleared orapprovedby the Food and Drug Administration. --- 11/06/23 1236 ---Zinc,WB previously reported as: 909 H ug/d LThis test was developed and its performance characteristicsdetermined by [employer]. It has not been cleared orapproved by the Food and Drug Administration.Performed at: [address] [id number] Director: Christine Pham MD, Phone: [phone] [Mass/volume] in Serum or PlasmaOrdered By: Oz Kincaid on 04-65-7929Yogwbve [Mass/Vol]7.7 g/dL6.0-8.5FWadsworth-Rittman HospitalProtein [Mass/volume] in UrineOrdered By: Oz Kincaid on 76-60-4226Szvmywb (U) [Mass/Vol]28.8 mg/dLNot Estab.Providence HospitalProtein.monoclonal/Protein.total in 24 hour Urine by ElectrophoresisOrdered By: Oz Kincaid on 10-30-2023 Protein.monoclonal Elph (24H U) [Mass fraction]Not observed %Not Observed Providence HospitalReagin Ab [Presence] in Serum by RPROrdered By: Oz Kincaid on 35-81-4719Bbyjjw Ab RPR Ql (S)Non-ReactiveNon ReactiveProvidence HospitalComment on above:Performed at: [address] [id number] Director: Yuri Osullivan PhD, Phone: [phone] West Nile virus IgG antibody detection by immunoassayOrdered By: Oz Kincaid on 63-56-5711Lrev Nile virus IgG IA Ql (S)NegativeNegativeUK Healthcareerum West Nile virus IgM antibody detection by immunoassayOrdered By: Oz Kincaid on 26-33-4638Axzw Nile virus IgM IA Ql (S) NegativeNegativeProvidence HospitalComment on above:Performed at: - [facility] [address] [id number] Director: Christine Pham MD, Phone: [phone] globulin measurement (mass/volume) Ordered By: Oz Kincaid on 82-30-5011Qblfqoou (S) [Mass/Vol]3.5 g/dL2.2-3.9 UK Healthcareerum homogeneous pattern antinuclear antibody (PO) titerOrdered By: Oz Kincaid on 77-89-0146Gzoifyeimv nuclear Ab pattern (S) [Titer]N/AFMercy Health – The Jewish Hospitalerum nuclear antibody titerOrdered By: Oz Kincaid on 31-31-8269Xamqfbr Ab (S) [Titer]PositiveAbnormal.Providence HospitalComment on above:Negative <1:80 Borderline 1:80 Positive >1:80Serum or plasma albumin/globulin mass ratioOrdered By: Oz Kincaid on 98-49-2452Ecjtfhr/Globulin [Mass ratio]1.2 {ratio}0.7-1.7FMercy Health – The Jewish Hospitalerum or plasma alpha 1 globulin measurement by electrophoresis (mass/volume)Ordered By: Oz Kincaid on 47-82-2204Vqghh 1 globulin Elph [Mass/Vol] 0.3 g/dL0.0-0.4FMercy Health – The Jewish Hospitalerum or plasma alpha 2 globulin measurement by electrophoresis (mass/volume)Ordered By: Oz Kincaid on 10-30-2023 Alpha 2 globulin Elph [Mass/Vol]1.0 g/dL0.4-1.0[facility] Serum or plasma beta globulin measurement by electrophoresis (mass/volume) Ordered By: Oz Kincaid on 15-40-9492Fddv globulin Elph [Mass/Vol]1.1 g/dL0.7-1.3 UK Healthcareerum or plasma ceruloplasmin measurement (mass/volume)Ordered By: Oz Kincaid on 69-35-4642Qipgqdxnuydvf [Mass/Vol]30.1 mg/dL19.0-39.0Providence HospitalComment on above:Performed at: - [facility] [address] [id number] Director: Yuri Osullivan PhD, Phone: [phone] or plasma gamma globulin measurement by electrophoresis (mass/volume)Ordered By: Oz Kincaid on 79-03-5496Risck globulin Elph [Mass/Vol]1.1 g/dL0.4-1.8UK Healthcareerum or plasma homocysteine measurement (moles/volume)Ordered By: Oz Kincaid on 10-30-2023 Homocysteine [Moles/Vol]20.7 umol/LHigh0.0-17.2FWadsworth-Rittman Hospital Comment on above:Performed at: [facility] [address] [id number] Director: Yuri Osullivan PhD, Phone: [phone] or plasma lutropin measurement (units/volume)Ordered By: Oz Kincaid on 35-95-6192Lffvhscf Qn 60.4 m[IU]/mLHigh7.7-58.5FWadsworth-Rittman HospitalComment on above:Adult Female Range Follicular phase 2.4 - 12.6 Ovulation phase 14.0 - 95.6 Luteal phase 1.0 - 11.4 Postmenopausal 7.7 - 58.5Serum or plasma methylmalonate measurement (moles/volume)Ordered By: Oz Kincaid on 72-33-1615Bxnzfuxgjpukhu [Moles/Vol]247 nmol/L0-378Providence HospitalComment on above:This test was developed and its performance characteristicsdetermined by [employer]. It has not been cleared orapproved by the Food and Drug Administration.Performed at: [facility] [address] [id number] Director: Christine Pham MD, Phone: [phone] test was developed and its performance characteristicsdetermined by [employer]. It has not been cleared orapproved by the Food and Drug Administration.Performed at: [facility] [address] [id number] Director: Christine Pham MD, Phone: [phone] This test was developed and its performance characteristicsdetermined by [employer]. It has not been cleared orapprovedby the Food and Drug Administration. --- 11/06/23 1236 ---Methylmal Acid previously reported as: 247 nmol/LThis test was developed and its performance characteristicsdetermined by [employer]. It has notbeen cleared orapproved by the Food and Drug Administration.Performed at: [facility] [employer] [id number] Director: Christine Pham MD, Phone: [phone] or plasma pyridoxine measurement (mass/volume)Ordered By: Oz Kincaid on 75-92-2781Rfeodklceh [Mass/Vol]8.8 ug/L3.4-65.2FWadsworth-Rittman HospitalComment on above:This test was developed and its performance characteristicsdetermined by [employer]. It has not been cleared orapproved by the Food and Drug Administration. Deficiency: <3.4 Marginal: 3.4 - 5.1 Adequate: >5.1Performed at: [facility] [address] [id number] Director: Christine Pham MD, Phone: [phone] or plasma rheumatoid factor measurement (units/volume)Ordered By: Oz Kincaid on 10-30-2023 Rheumatoid factor Qn[IU]/mL<14.0UK Healthcareerum speckled pattern antinuclear antibody (PO) titerOrdered By: Oz Kincaid on 10-30-2023 Speckled nuclear Ab pattern (S) [Titer]1:80.[facility] Comment on above:ICAP nomenclature: AC-2,4,5,29Thyrotropin [Units/volume] in Serum or PlasmaOrdered By: Oz Kincaid on 92-82-2950WLC Qn6.38 m[IU]/LHigh0.45-5.33 [facility] HospitalThyroxine (T4) free [Mass/volume] in Serum or PlasmaOrdered By: Oz Kincaid on 87-28-7079Albu T4 [Mass/Vol]0.89 ng/dL0.61-1.12 Providence HospitalUrine alpha 1 globulin/total protein by electrophoresisOrdered By: Oz Kincaid on 62-17-5794Abmad 1 globulin Elph (U) [Mass fraction]0.4 %.Providence HospitalUrine alpha 2 globulin/total protein ratio by electrophoresisOrdered By: Oz Kincaid on 16-34-6875Sdyel 2 globulin Elph (U) [Mass fraction]8.9 %.Providence HospitalUrine beta globulin measurement by electrophoresis (mass/volume)Ordered By: Oz Kincaid on 95-12-0312Uhft globulin Elph (U) [Mass/Vol]31.7 %.Providence HospitalVitamin B12 ser/plasOrdered By: Oz Kincaid on 58-29-0896Eyxucwumk (Vitamin B12) [Mass/Vol]300 pg/oB069-764CaszppsbyProvidence HospitalGlucose Glucometer (BldC) [Mass/Vol]Ordered By: Elva Florian on 87-06-5502Rzgpzsa [Mass/Vol]134 mg/dLProvidence HospitalComment on above:Random Glucose Reference Range is dependent on time and content of last meal. Glucose of more than 200 mg/dL in a nonstressed, ambulatory subject supports the diagnosis of Diabetes Mellitus.No Panel InformationOrdered By: Elva Florian on 93-59-8291Qaphsdk Glucose CommentGlu2: cleaned meterProvidence HospitalCholesterol [Mass/volume] in Serum or PlasmaOrdered By: Elva Florian on 42-14-5816Aprxxbrfyaq [Mass/Vol]125 mg/eXFzl251-086WyezjntpmProvidence HospitalComment on above:Chol less than 200 mg/dl low riskChol 201-239 mg/dl borderline riskChol 240 mg/dl and greater high riskCholesterol in LDL Calc [Mass/Vol]Ordered By: Elva Florian on 24-32-8880Stdekfstsyl in LDL [Mass/Vol] 59 mg/dL0-100Providence HospitalComment on above:LDL ATP III CLASSIFICATIONLDL less than 100 mg/dL OptimalLDL 100-129 mg/dL Near or above etmzvslMRS938-376 mg/dL Borderline highLDL 160-189 mg/dL HighLDL greater than 189 mg/dL Very highCholesterol in VLDL Calc [Mass/Vol]Ordered By: Elva Florian on 77-97-3773Vuxgleiwznb in VLDL [Mass/Vol]39 mg/dLProvidence HospitalMagnesium [Mass/volume] in Serum or PlasmaOrdered By: Elva Daphnebari on 59-48-4711Hxvinoxdk [Mass/Vol]1.6 mg/dLLow1.9-2.7FMercy Health – The Jewish Hospitalerum or plasma high density lipoprotein (HDL) cholesterol measurement Ordered By: Elva Daphnebari on 73-07-4226Zwokncoguug in HDL [Mass/Vol]26 mg/dL 23-92Providence HospitalComment on above:HDL CHOL ATP-III CLASSIFICATION Cardiovascular RiskHDL > or equal to 60 mg/dL LOWHDL < 40 mg/dL HIGHSerum or plasma total cholesterol/high density lipoprotein (HDL) cholesterol mass ratOrdered By: Elva Daphnebari on 72-70-6852Golklojundz.total/Cholesterol in HDL [Mass ratio]4.8 {ratio}<5.0Providence HospitalThyrotropin [Units/volume] in Serum or PlasmaOrdered By: Elva Daphnebari on 67-17-0591NVE Qn 2.48 m[IU]/L0.45-5.33Providence HospitalTriglyceride [Mass/volume] in Serum or PlasmaOrdered By: Priscillamarko Daphnebari on 91-20-6865Opcnnmqdhwwn [Mass/Vol]198 mg/dLHigh0-149Providence HospitalComment on above: TRIG ATP III CLASSIFICATIONTRIG less than 150 mg/dL NormalTRIG 150-199 mg/dL Borderline highTRIG 200-500 mg/dL High TRIG greater than 500 mg/dL Very highStandard traceable to the Center for Disease Conrtrol and Prevention (CDC) test method.Activated partial thromboplastin time (aPTT) in platelet poor plasma by coagulation aOrdered By: Edgar Valenzuela on 00-17-2532iMGK Coag (PPP) [Time] 29.3 s25.1-36.5FWadsworth-Rittman HospitalComment on above:A hematocrit value greater than 55% may lead to inaccurate results in coagulation testing. Patientshaving hematocrit values >55% require a special collection tube for coagulation studies. Please contact the laboratory at [phone] for redraw instructions.Basophils Auto (Bld) [#/Vol]Ordered By: Edgar Valenzuela on 05-16-2024 Basophils (Bld) [#/Vol]0.1 10*3/uL0.0-0.2FWadsworth-Rittman Hospital Basophils/100 WBC Auto (Bld)Ordered By: Edgar Valenzuela on 85-64-6833Anycukvcx/100 WBC (Bld)0.9 %.Providence HospitalCalcium [Mass/volume] in Serum or PlasmaOrdered By: Edgar Valenzuela on 45-55-6621Oflgoli [Mass/Vol]10.5 mg/dLHigh 8.6-10.3FWadsworth-Rittman HospitalCarbon dioxide, total [Moles/volume] in Serum or PlasmaOrdered By: Edgar Valenzuela on 26-35-3141SH5 [Moles/Vol]25.0 mmol/L21.0-31.0Providence HospitalChloride [Moles/volume] in Serum or PlasmaOrdered By: Edgar Valenzuela on 12-13-2738Pambunvm [Moles/Vol]102 mmol/L 98-107Providence HospitalCreatine kinase [Enzymatic activity/volume] in Serum or PlasmaOrdered By: Edgra Valenzuela on 22-27-2047EJ [Catalytic activity/Vol]45 U/C94-838KqytyjypeProvidence HospitalCreatinine [Mass/volume] in Serum or PlasmaOrdered By: Edgar Valenzuela on 09-12-2023 Creatinine [Mass/Vol]0.84 mg/dL0.60-1.20[facility] Eosinophils Auto (Bld) [#/Vol]Ordered By: Edgar Valenzuela on 71-37-8876Ogzdxdwisjt (Bld) [#/Vol]0.2 10*3/uL0.0-0.45[facility] Eosinophils/100 WBC Auto (Bld)Ordered By: Edgar Valenzuela on 09-12-2023 Eosinophils/100 WBC (Bld)1.7 %.Providence HospitalErythrocyte distribution width Auto (RBC) [Ratio]Ordered By: Edgar Valenzuela on 09-12-2023 Erythrocyte distribution width (RBC) [Ratio]12.7 %11.9-15.3FWadsworth-Rittman HospitalGlucose [Mass/volume] in Serum or PlasmaOrdered By: Edgar Valenzuela on 00-89-3850Zztncar [Mass/Vol]150 mg/uMNxao90-909PquoyexuoProvidence HospitalComment on above:ADA recommended reference rangeRandom Glucose Reference Range is dependent on time and content of last meal. Glucose of more than 200 mg/dL in a nonstressed, ambulatory subject supports the diagnosisof Diabetes Mellitus.HbA1c HPLC (Bld) [Mass fraction]on 85-50-8273LkA1z (Bld) [Mass fraction]6.6 %Providence HospitalHematocrit Auto (Bld) [Volume fraction]Ordered By: Egdar Valenzuela on 54-50-2249Gfrehtihgq (Bld) [Volume fraction]49.3 %High34.0-46.4FWadsworth-Rittman HospitalHemoglobin [Mass/volume] in BloodOrdered By: Edgar Valenzuela on 52-61-2078Ownphmmwuf (Bld) [Mass/Vol]16.9 g/aIEhrd50.8-15.4FWadsworth-Rittman HospitalINR in Platelet poor plasma by Coagulation assayOrdered By: Edgar Valenzuela on 80-22-0795KRH Coag (PPP) [Relative time]1.1 {INR}Providence HospitalComment on above:INR Therapeutic Range A) Pre- and [...] by Automated counOrdered By: Edgar Valenzuela on 49-03-0625HVI corrected for nucl RBC Auto (Bld) [#/Vol]9.8 10*3/uL3.8-11.6FWadsworth-Rittman Hospital Lymphocytes Auto (Bld) [#/Vol]Ordered By: Edgar Valenzuela on 13-83-9661Yajjskbixcu (Bld) [#/Vol]2.0 10*3/uL1.00-4.8[facility] Lymphocytes/100 WBC Auto (Bld)Ordered By: Edgar Valenzuela on 09-12-2023 Lymphocytes/100 WBC (Bld)20.2 %.[facility] Auto (RBC) [Entitic mass]Ordered By: Edgar Valenzuela on 84-09-9366TGR (RBC) [Entitic mass] 32.7 pg24.7-34.3FPremier Health Miami Valley Hospital NorthHC Auto (RBC) [Mass/Vol] Ordered By: Edgar Valenzuela on 42-05-5541JXTE (RBC) [Mass/Vol]34.2 g/dL32.0-35.0 Providence HospitalMCV Auto (RBC) [Entitic vol]Ordered By: Edgar Valenzuela on 71-26-1464WQB (RBC) [Entitic vol]95.6 lP93-465PciobpuqlProvidence HospitalMonocyte distribution width [Entitic volume] in Blood by Automated Ordered By: Edgar Valenzuela on 14-47-4444Nyzvdaub distribution width Auto (Bld) [Entitic vol]19.90 %0.00-20.00Providence HospitalMonocytes Auto (Bld) [#/Vol]Ordered By: Edgar Valenzuela on 80-26-0796Prrpydzft (Bld) [#/Vol]0.6 10*3/uL0.0-0.8Providence HospitalMonocytes/100 WBC Auto (Bld) Ordered By: Edgar Valenzuela on 15-53-4344Mqgvggrnu/100 WBC (Bld)5.9 %.[facility]idence HospitalNatriuretic peptide B [Mass/Vol]Ordered By: Edgar Valenzuela on 23-66-5318Pkpydufehpl peptide B (Bld) [Mass/Vol]112.0 pg/mLHigh5-100 Providence HospitalNeutrophils Auto (Bld) [#/Vol]Ordered By: Edgar Valenzuela on 59-67-3816Ytyectukmep (Bld) [#/Vol]7.0 10*3/uL1.8-7.7FWadsworth-Rittman HospitalNeutrophils/100 WBC Auto (Bld)Ordered By: Edgar Valenzuela on 47-57-0278Twyqhqpglim/100 WBC (Bld)71.3 %.[facility]idence HospitalNo Panel InformationOrdered By: Edgar Valenzuela on 24-84-3646Niyrevdgm GFR (CKD-EPI) > 60.0 mL/MinProvidence HospitalPharmacy Creatinine Clearance (Chem73.11Providence HospitalNo Panel Informationon 09-12-2023 Bedside Nslyozt394EnlgawoqpProvidence HospitalNucleated erythrocytes [Presence] in Blood by Automated countOrdered By: Edgar Valenzuela on 09-12-2023 Nucleated RBC Auto Ql (Bld)0.2 /100{WBC}0-0.5FWadsworth-Rittman Hospital Platelet mean volume Auto (Bld) [Entitic vol]Ordered By: Edgar Valenzuela on 25-32-0147Uudzlvum mean volume (Bld) [Entitic vol]9.5 fL6.3-10.7FWadsworth-Rittman HospitalPlatelets Auto (Bld) [#/Vol]Ordered By: Edgar Valenzuela on 54-77-8603Ksnxcmqoh (Bld) [#/Vol]195 10*3/eU721-962NtqtyevreProvidence HospitalPotassium [Moles/volume] in Serum or PlasmaOrdered By: Edgar Valenzuela on 41-71-7368Pjcpmoong [Moles/Vol]4.0 mmol/L3.5-5.1FWadsworth-Rittman HospitalProthrombin time (PT)Ordered By: Edgar Valenzuela on 23-15-8854BE Coag (PPP) [Time]12.7 s9.0-12.9Providence HospitalComment on above:A hematocrit value greater than 55% may lead to inaccurate results in coagulation testing. Patientshaving hematocrit values >55% require a special collection tube for coagulation studies. Please contact the laboratory at [phone] for redraw instructions.RBC Auto (Bld) [#/Vol]Ordered By: Edgar Valenzuela on 61-05-2932OSR (Bld) [#/Vol]5.16 10*6/uLHigh3.60-5.00UK Healthcareerum or plasma anion gap determinationOrdered By: Edgar Valenzuela on 36-63-9343Bjwda gap [Moles/Vol]15.0 mmol/L6.0-15.0UK Healthcareodium [Moles/volume] in Serum or PlasmaOrdered By: Edgar Valenzuela on 87-34-5290Ylwhpg [Moles/Vol]138 mmol/G760-465ExsveypvrProvidence Hospital Troponin I.cardiac [Mass/volume] in Serum or Plasma by Detection limit <= 0.01 ng/Ordered By: Edgar Valenzuela on 20-40-7771Dvjqsszp I.cardiac DL <= 0.01 ng/mL [Mass/Vol]7.3 pg/mL0.0-15.0Providence HospitalUrea nitrogen [Mass/volume] in Serum or PlasmaOrdered By: Edgar Valenzuela on 64-99-2558Aush nitrogen [Mass/Vol]11 mg/dL7-25Providence HospitalWBC Auto (Bld) [#/Vol]Ordered By: Edgar Valenzuela on 35-43-7421JME (Bld) [#/Vol]9.8 10*3/uL 3.8-11.6FWadsworth-Rittman HospitalAlanine aminotransferase [Enzymatic activity/volume] in Serum or PlasmaOrdered By: Angelique Russell on 72-19-7522HMT [Catalytic activity/Vol]19 U/L7-52Providence HospitalAlbumin [Mass/volume] in Serum or Plasma by Bromocresol green (BCG) dye binding metho Ordered By: Angelique Russell on 27-60-4606Odlhhvk BCG dye [Mass/Vol]4.3 g/dL3.5-5.7 Providence HospitalAlkaline phosphatase [Enzymatic activity/volume] in Serum or PlasmaOrdered By: Barbera Yvonne on 14-08-3400XWO [Catalytic activity/Vol]81 U/H18-575CxvpuwbncProvidence HospitalAspartate aminotransferase [Enzymatic activity/volume] in Serum or PlasmaOrdered By: Tondra Leonardous on 80-25-0781SIF [Catalytic activity/Vol]26 U/G75-15IjsfhhecqProvidence HospitalBilirubin.total [Mass/volume] in Serum or PlasmaOrdered By: Tondra Yvonne on 20-66-9197Nnjaitixy [Mass/Vol]0.7 mg/dL0.3-1.0Providence HospitalCalcium [Mass/volume] in Serum or PlasmaOrdered By: Tondra Mapus on 58-57-4276Rpieqzb [Mass/Vol]10.2 mg/dL8.6-10.3FWadsworth-Rittman HospitalCarbon dioxide, total [Moles/volume] in Serum or PlasmaOrdered By: Angelique Russell on 45-16-9882XL1 [Moles/Vol]28.6 mmol/L21.0-31.0Providence HospitalChloride [Moles/volume] in Serum or PlasmaOrdered By: Barbera Leonardous on 64-32-4862Rtslskqp [Moles/Vol]102 mmol/K08-066RufquscpiProvidence HospitalCholesterol [Mass/volume] in Serum or PlasmaOrdered By: Tona Leonardous on 76-18-4992Cwcgytbjidt [Mass/Vol]143 mg/bG624-320IcyufpzpcProvidence HospitalComment on above:Chol less than 200 mg/dl low riskChol 201-239 mg/dl borderline riskChol 240 mg/dl and greater high riskCholesterol in LDL Calc [Mass/Vol]Ordered By: Angelique Russell on 01-36-8404Gxcpmzptqlf in LDL [Mass/Vol]62 mg/dL0-100Providence HospitalComment on above:LDL ATP III CLASSIFICATIONLDL less than 100 mg/dL OptimalLDL 100-129 mg/dL Near or above fnsslyhSMJ555-211 mg/dL Borderline highLDL 160-189 mg/dL HighLDL greater than 189 mg/dL Very highCholesterol in VLDL Calc [Mass/Vol]Ordered By: Angelique Russell on 38-02-9704Svvmgovfkab in VLDL [Mass/Vol]51 mg/dLProvidence HospitalCreatinine [Mass/volume] in Serum or PlasmaOrdered By: Barbera Yvonne on 64-77-4745Srfwovowjb [Mass/Vol]0.91 mg/dL0.60-1.20Prov[facility] HospitalCreatinine [Mass/volume] in UrineOrdered By: Angelique Russell on 09-05-2023 Creatinine (U) [Mass/Vol]118.0 mg/dLProvidence HospitalComment on above:No reference range establishedGlobulin Calc (S) [Mass/Vol]Ordered By: Angelique Russell on 27-98-5916Qblxbnwz (S) [Mass/Vol]2.7 g/dLProvidence HospitalGlucose [Mass/volume] in Serum or PlasmaOrdered By: Angelique Russell on 46-81-7833Micmxqe [Mass/Vol]197 mg/mJQzgf69-881PequjpfieProvidence HospitalComment on above:ADA recommended reference rangeRandom Glucose Reference Range is dependent on time and content of last meal. Glucose of more than 200 mg/dL in a nonstressed, ambulatory subject supports the diagnosisof Diabetes Mellitus.Microalbumin [Mass/volume] in UrineOrdered By: Angelique Russell on 95-97-8239Kiiqrum DL <= 20 mg/L (U) [Mass/Vol]18.4 mg/dLHigh0.0-1.8Providence HospitalNo Panel InformationOrdered By: Angelique Russell on 49-24-1811Znsnwoflo GFR (CKD-EPI)> 60.0 mL/MinProvidence Hospital Pharmacy Creatinine Clearance (ChemN/[facility] SouthPotassium [Moles/volume] in Serum or PlasmaOrdered By: Angelique Russell on 09-05-2023 Potassium [Moles/Vol]4.2 mmol/L3.5-5.1FWadsworth-Rittman HospitalProtein [Mass/volume] in Serum or PlasmaOrdered By: Angelique Russell on 44-15-3810Usipkgn [Mass/Vol]7.0 g/dL6.4-8.9UK Healthcareerum or plasma albumin/globulin mass ratioOrdered By: Angelique Russell on 09-05-2023 Albumin/Globulin [Mass ratio]1.6 {ratio}UK Healthcareerum or plasma anion gap determinationOrdered By: Angelique Russell on 84-22-8156Qmrxz gap [Moles/Vol]13.6 mmol/L6.0-15.0UK Healthcareerum or plasma high density lipoprotein (HDL) cholesterol measurementOrdered By: Angelique Russell on 43-71-4897Gqqllqrgrir in HDL [Mass/Vol]30 mg/mX81-00HmxkvxogtProvidence HospitalComment on above:HDL CHOL ATP-III CLASSIFICATION Cardiovascular RiskHDL > or equal to 60 mg/dL LOWHDL < 40 mg/dL HIGHSerum or plasma total cholesterol/high density lipoprotein (HDL) cholesterol mass ratOrdered By: Angelique Russell on 89-28-4103Jgriqfqkgnl.total/Cholesterol in HDL [Mass ratio]4.8 {ratio}<5.0UK Healthcareodium [Moles/volume] in Serum or PlasmaOrdered By: Angelique Russell on 85-09-6415Idxaoe [Moles/Vol]140 mmol/J112-268 [facility] HospitalTriglyceride [Mass/volume] in Serum or Plasma Ordered By: Angelique Russell on 38-26-0391Ximbbjqbyeyv [Mass/Vol]256 mg/dLHigh0-149 [facility] HospitalComment on above:TRIG ATP III CLASSIFICATIONTRIG less than 150 mg/dL NormalTRIG 150-199 mg/dL Borderline highTRIG 200-500 mg/dL High TRIG greater than 500 mg/dL Very highStandard traceable to the Center for Disease Conrtrol and Prevention (CDC) test method. Urea nitrogen [Mass/volume] in Serum or PlasmaOrdered By: Angelique Russell on 59-96-2565Ctig nitrogen [Mass/Vol]12 mg/dL7-25[facility] Urine microalbumin/creatinine mass ratioOrdered By: Angelique Russell on 09-05-2023 Albumin/Creatinine DL <= 20 mg/L (U) [Mass ratio]155.0 mg/gHigh0.0-30.0[facility] HospitalComment on above:30-300 mg/g indicates an increased risk for diabetic nephropathy. Greater than 300 mg/g is consistent with clinical nephropathy. (Am. J. Kidney Disease 1995, 25:107)Vitamin B12 ser/plasOrdered By: Angelique Russell on 93-36-6844Vbqdmswrx (Vitamin B12) [Mass/Vol]255 pg/xE536-007 [facility] HospitalLaboratory - Hematology and Cell countson 04-78-6115JoX9t (Bld) [Mass fraction]7.2 %[facility] HospitalNo Panel Informationon 68-99-0109Csegysy Wqvcayy168WldeldyfbProvidence HospitalA1C HEMOGLOBINon 54-47-4654CzQ2d (Bld) [Mass fraction]6.3 %[employer] Other Glucose - FINGER STICKon 40-31-1067Foaewid [Mass/Vol] 196 mg/dLNometropolitan saint lou[facility] psychiatric center [employer] Other HbA1c (Bld) [Mass fraction]on 66-40-0180I3U HEMOGLOBIN [employer] Other a1c HEMOGLOBINon 68-92-0851BtH3z (Bld) [Mass fraction] 6.6 %[employer] Other Glucose - FINGER STICKon 35-50-6982Lhmbrld [Mass/Vol] 128 mg/dLNometropolitan saint louis psychiatric center [employer] Other HbA1c (Bld) [Mass fraction]on 95-74-6427M5Y HEMOGLOBIN [employer] Other A1C HEMOGLOBINon 25-97-0615JhP6t (Bld) [Mass fraction] 7.1 %[employer] Other Glucose - FINGER STICKon 12-69-4101Ivgfccu [Mass/Vol] 219 mg/dLNometropolitan saint louis psychiatric center [employer] Other HbA1c (Bld) [Mass fraction]on 28-42-8902M6K HEMOGLOBIN [employer] Other a1c HEMOGLOBINon 18-42-6694NjW7o (Bld) [Mass fraction] 7.7 %[employer] Other Glucose - FINGER STICKon 31-73-4326Xajepkf [Mass/Vol] 242 mg/dLNoAtossa Genetics [employer] Other HbA1c (Bld) [Mass fraction]on 68-60-9831B5S HEMOGLOBIN [employer] Other Consultation Noteon 59-61-1595Orcgniioqmur Note [id number]#1.00CD:ConstantinoUPMC Western MarylandInsurance Correspondence Officeon 69-94-2848Zrfhcfckx Correspondence [id number]#1.00CD:[address] [place], [place] [address]Urine culture routineOrdered By: Milo Watters on 12-19-2021 Bacteria identified Cx Nom (U)Zeny albicansProvidence Hospital Albumin [Mass/volume] in Serum or PlasmaOrdered By: Milo Watters on 12-17-2021 Albumin [Mass/Vol]3.4 g/dL3.2-5.5FWadsworth-Rittman HospitalAutomated erythrocytes count in urine sediment (number/area)Ordered By: Milo Watters on 58-97-1810COM Auto (Urine sed) [#/Area]3-4 [HPF]0-4FWadsworth-Rittman HospitalAutomated leukocytes count in urine sediment (number/area)Ordered By: Milo Watters on 60-69-4129JCV Auto (Urine sed) [#/Area]50-100 [HPF]0-4FWadsworth-Rittman HospitalAutomated urine hyaline casts count (number/volume) Ordered By: Milo Watters on 14-79-5988Ftvnjgf casts Auto (U) [#/Vol]None seen [LPF]0-1FWadsworth-Rittman HospitalBasophils Auto (Bld) [#/Vol]Ordered By: Milo Watters on 00-42-5387Xausahfbl (Bld) [#/Vol]0.1 10*3/uL0.0-0.2FWadsworth-Rittman HospitalBasophils/100 WBC Auto (Bld)Ordered By: Milo Watters on 06-48-8346Olejcknxv/100 WBC (Bld)0.5 %.[facility] Bilirubin Test strip Ql (U)Ordered By: Milo Watters on 62-55-6491Hmikczfma Ql (U)NegativeNegativeProvidence HospitalBlood hemoglobin measurement (mass/volume)Ordered By: Milo Watters on 00-01-8926Jjwzsmqsti (Bld) [Mass/Vol] 16.1 g/dL11.8-15.4FWadsworth-Rittman HospitalBlood leukocytes automated count (number/volume)Ordered By: Milo Watters on 71-44-2381SNR (Bld) [#/Vol] 10.7 10*3/uL4.5-11.0[facility] HospitalCasts typing in urine sediment by light microscopyOrdered By: Milo Watters on 52-18-4841Tkczw LM Nom (Urine sed)None seen [LPF]None SeenProvidence HospitalColor Auto (U)Ordered By: Milo Watters on 55-73-2861Yvuxs (U)YellowYellowProvidence HospitalCreatinine and Glomerular filtration rate.predicted panel (S/P/Bld)Ordered By: Milo Watters on 66-71-6463Vtdjwlyvdu [Mass/Vol]0.89 mg/dL 0.44-1.03[facility] HospitalEosinophils Auto (Bld) [#/Vol]Ordered By: Milo Watters on 80-94-5856Gmhuuogmhrc (Bld) [#/Vol]0.1 10*3/uL0.0-0.45 [facility] HospitalEosinophils/100 WBC Auto (Bld)Ordered By: Milo Watters on 50-11-1687Btfxunkzenl/100 WBC (Bld)1.0 %.[facility] HospitalErythrocyte distribution width Auto (RBC) [Ratio]Ordered By: Milo Watters on 06-35-5083Hvusvdushjb distribution width (RBC) [Ratio]13.1 % 11.9-15.3FWadsworth-Rittman HospitalEstimated glomerular filtration rate (GFR) non- AmericanOrdered By: Milo Watters on 33-78-5667JXG/1.73 sq M.predicted among non-blacks MDRD (S/P/Bld) [Vol rate/Area]> 60 mL/MinProvidence HospitalGlobulin Calc (S) [Mass/Vol]Ordered By: Milo Watters on 96-48-5433Gzhkoywo (S) [Mass/Vol]3.9 g/dLProvidence Hospital Hematocrit Auto (Bld) [Volume fraction]Ordered By: Milo Watters on 12-17-2021 Hematocrit (Bld) [Volume fraction]48.5 %34.0-46.4FWadsworth-Rittman HospitalKetones Auto test strip (U) [Mass/Vol]Ordered By: Milo Watters on 63-79-5785Mufunzr (U) [Mass/Vol]NegativeNegativeProvidence HospitalLaboratory - Hematology and Cell countsOrdered By: Milo Watters on 79-52-7183Qjblaujjk RBC/100 WBC (Bld) [Ratio]0.1 %0-0.5FWadsworth-Rittman HospitalLymphocytes Auto (Bld) [#/Vol]Ordered By: Milo Watters on 47-90-2067Jhwsriigwih (Bld) [#/Vol]1.5 10*3/uL1.00-4.8[facility] HospitalLymphocytes/100 WBC Auto (Bld)Ordered By: iMlo Watters on 12-17-2021 Lymphocytes/100 WBC (Bld)14.2 %.[facility] HospitalH Auto (RBC) [Entitic mass]Ordered By: Milo Watters on 50-55-5659ZQO (RBC) [Entitic mass] 31.4 pg24.7-34.3FWadsworth-Rittman HospitalMCHC Auto (RBC) [Mass/Vol] Ordered By: Milo Watters on 34-05-6632MVZX (RBC) [Mass/Vol]33.2 g/dL32.0-35.0 [facility] HospitalMCV Auto (RBC) [Entitic vol]Ordered By: Milo Watters on 24-99-0623TEG (RBC) [Entitic vol]94.6 bM27-853XtdyfmrolProvidence HospitalMonocytes Auto (Bld) [#/Vol]Ordered By: Milo Watters on 79-58-2514Ttviegzou (Bld) [#/Vol]0.8 10*3/uL0.0-0.8[facility] HospitalMonocytes/100 WBC Auto (Bld)Ordered By: Milo Watters on 12-17-2021 Monocytes/100 WBC (Bld)7.5 %.[facility] HospitalNeutrophils Auto (Bld) [#/Vol]Ordered By: Milo Watters on 27-55-5057Xxfkybqszcb (Bld) [#/Vol]8.2 10*3/uL1.8-7.7FWadsworth-Rittman HospitalNeutrophils/100 WBC Auto (Bld) Ordered By: Milo Watters on 08-78-6070Yvyoaaxqyjy/100 WBC (Bld)76.8 %.[facility] HospitalNitrite Test strip Ql (U)Ordered By: Milo Watters on 01-86-8909Tmscorx Ql (U)NegativeNegativeProvidence HospitalNo Panel InformationOrdered By: Milo Watters on 75-26-8685Gdppmhyqa GFR ()> 60 mL/MinProvidence HospitalComment on above:GFR estimated reference range: According to KDOQI guidelines, <60 ml/min/1.73m2 is sufficient todiagnose a patient with chronic kidney disease.Pharmacy Creatinine Clearance (Chem70.55[facility] HospitalPlatelet mean volume Auto (Bld) [Entitic vol]Ordered By: Milo Watters on 63-44-8721Vukbndpu mean volume (Bld) [Entitic vol]8.7 fL6.3-10.7FWadsworth-Rittman HospitalPlatelets Auto (Bld) [#/Vol]Ordered By: Milo Watters on 51-37-5910Bvlozxzux (Bld) [#/Vol]239 10*3/zQ197-443EjyhljkwiProvidence HospitalProtein Auto test strip (U) [Mass/Vol]Ordered By: Milo Watters on 74-27-4814Pvwmntz (U) [Mass/Vol]Trace mg/dLNegativeProvidence HospitalProtein [Mass/volume] in Serum or PlasmaOrdered By: Milo Watters on 44-20-5043Ixwtwda [Mass/Vol]7.3 g/dL6.1-7.9 [facility] HospitalRBC Auto (Bld) [#/Vol]Ordered By: Milo Watters on 74-75-1976ZMS (Bld) [#/Vol]5.13 10*6/uL3.60-5.00UK Healthcareerum or plasma alanine aminotransferase measurement without P-5'-P (enzymatic activiOrdered By: Milo Watters on 36-49-5161UFS No additional P-5'-P [Catalytic activity/Vol]38 U/J62-34AvpgengdsUK Healthcareerum or plasma albumin/globulin mass ratioOrdered By: Milo Watters on 12-17-2021 Albumin/Globulin [Mass ratio]0.9 {ratio}UK Healthcareerum or plasma alkaline phosphatase measurement (enzymatic activity/volume)Ordered By: Milo Watters on 22-84-7342OTF [Catalytic activity/Vol]109 U/R85-45WsmjjzcnpUK Healthcareerum or plasma aspartate aminotransferase measurement (enzymatic activity/volume)Ordered By: Milo Watters on 16-48-6705EID [Catalytic activity/Vol]43 U/D98-71RiapgbiwtUK Healthcareerum or plasma calcium measurement (mass/volume)Ordered By: Milo Watters on 25-28-6787Vrrwvqf [Mass/Vol]10.0 mg/dL8.2-10.2FMercy Health – The Jewish Hospitalerum or plasma chloride measurement (moles/volume)Ordered By: Milo Watters on 12-17-2021 Chloride [Moles/Vol]102 mmol/I15-577DjwuicymsUK Healthcareerum or plasma glucose measurement (mass/volume)Ordered By: Milo Watters on 12-17-2021 Glucose [Mass/Vol]231 mg/pS88-445JlfyfqdruProvidence HospitalComment on above:ADA recommended reference range Random Glucose Reference Range is dependent on time and content of last meal. Glucose of more than 200 mg/dL in a nonstressed, ambulatory subject supports the diagnosis of Diabetes Mellitus.Serum or plasma potassium measurement (moles/volume)Ordered By: OSORIO WHITE on 07-98-5203Prxgqwlnn [Moles/Vol]3.6 mmol/L3.5-5.1FMercy Health – The Jewish Hospitalerum or plasma sodium measurement (moles/volume)Ordered By: Milo Watters on 48-88-1675Npmpme [Moles/Vol]137 mmol/L750-403JxocemuadUK Healthcareerum or plasma total bilirubin measurement (mass/volume)Ordered By: Milo Watters on 40-64-2113Khmlxcntq [Mass/Vol]0.8 mg/dL0.3-1.2FMercy Health – The Jewish Hospitalerum or plasma total carbon dioxide measurement (moles/volume)Ordered By: Milo Watters on 83-47-5365HY6 [Moles/Vol]24.6 mmol/L22.0-30.0[facility] Serum or plasma urea nitrogen measurement (mass/volume)Ordered By: Milo Watters on 01-46-4275Vhal nitrogen [Mass/Vol]8 mg/dL9-23UK Healthcarepecific gravity Auto test strip (U) [Rel density]Ordered By: Milo Watters on 03-35-2628Jixmufnk gravity (U) [Rel density]1.0301.001-1.030UK Healthcarequamous epithelial cells detection in urine sediment by light microscopyOrdered By: Milo Watters on 65-88-7835Ebomgbuzzr cells.squamous LM Ql (Urine sed)None seen [HPF]0-2FWadsworth-Rittman HospitalUrine bacteria detection by automated methodOrdered By: Milo Watters on 12-17-2021 Bacteria Auto Ql (U)RareNone [facility] EastUrine clarity by refractometry automatedOrdered By: Milo Watters on 21-93-9664Ooqgqie Refractometry automated (U)ClearClearFWadsworth-Rittman HospitalUrine glucose measurement by automated test strip (mass/volume)Ordered By: Milo Watters on 45-73-2737Ookrjdr Auto test strip (U) [Mass/Vol]>=1000 mg/dLUk HealthcareUrine hemoglobin detection by automated test stripOrdered By: Milo Watters on 24-17-9445Ahrvgjonso Auto test strip Ql (U)1+ NegativeProvidence HospitalUrine leukocyte esterase detection by automated test stripOrdered By: Milo Watters on 01-91-7725Jzdsgnogv esterase Auto test strip Ql (U)3+NegativeProvidence HospitalUrobilinogen Auto test strip (U) [Mass/Vol]Ordered By: Milo Watters on 12-17-2021 Urobilinogen (U) [Mass/Vol]Normal mg/dLRegency Hospital Company Yeast detection in urine sediment by light microscopyOrdered By: Milo Watters on 51-26-2350Fsaky LM Ql (Urine sed)3+ [HPF]None [facility] EastpH Auto test strip (U)Ordered By: Milo Watters on 25-53-3039cZ (U)6.0 [pH]5.0-9.0[facility] HospitalBacterial blood cultureOrdered By: Arleen Stephen on 06-38-0424Bnusbzyh identified Cx Nom (Bld)NO GROWTH 5 DAYS [facility] HospitalBasophils Auto (Bld) [#/Vol]Ordered By: Walter Montgomery on 75-37-8804Tcygwccoz (Bld) [#/Vol]0.0 10*3/uL0.0-0.2FWadsworth-Rittman HospitalBasophils/100 WBC Auto (Bld)Ordered By: Walter Montgomery on 08-17-2022 Basophils/100 WBC (Bld)0.1 %.[facility] HospitalBlood hemoglobin measurement (mass/volume)Ordered By: Walter Montgomery on 48-61-8147Gyiqdyguti (Bld) [Mass/Vol]14.2 g/dL11.8-15.4FWadsworth-Rittman HospitalBlood leukocytes automated count (number/volume)Ordered By: Walter Montgomery on 64-61-5328FET (Bld) [#/Vol]9.4 10*3/uL4.5-11.0[facility] HospitalConsultation Noteon 44-65-1944Dxmoabfthdrd [id number]#1.00CD:[address] HospitalCreatinine and Glomerular filtration rate.predicted panel (S/P/Bld)Ordered By: Walter Montgomery on 26-18-0722Cndjuojxja [Mass/Vol]0.75 mg/dL0.44-1.03[facility] HospitalDirect bilirubin measurementOrdered By: Walter Montgomery on 43-40-2350Vastathbh.direct [Mass/Vol]0.2 mg/dL0.0-0.4FWadsworth-Rittman HospitalEosinophils Auto (Bld) [#/Vol] Ordered By: Walter Montgomery on 35-54-5293Nibgbnpilkh (Bld) [#/Vol]0.0 10*3/uL 0.0-0.45[facility] HospitalEosinophils/100 WBC Auto (Bld)Ordered By: Walter Montgomery on 17-30-4436Qkdnaufyhzw/100 WBC (Bld)0.0 %.[facility] HospitalErythrocyte distribution width Auto (RBC) [Ratio]Ordered By: Walter Montgomery on 95-95-5011Qamnhtmsgfw distribution width (RBC) [Ratio]12.9 %11.9-15.3 [facility] HospitalEstimated glomerular filtration rate (GFR) non- AmericanOrdered By: Walter Montgomery on 13-30-1179KXK/1.73 sq M.predicted among non-blacks MDRD (S/P/Bld) [Vol rate/Area]> 60 mL/MinProvidence HospitalGlucose Glucometer (BldC) [Mass/Vol]Ordered By: Wilmer Vance on 15-20-6086Nilutty [Mass/Vol]230 mg/dLProvidence HospitalComment on above:Random Glucose Reference Range is dependent on time and content of last meal. Glucose of more than 200 mg/dL in a nonstressed, ambulatory subject supports the diagnosis of Diabetes Mellitus.Hematocrit Auto (Bld) [Volume fraction]Ordered By: Walter Montgomery on 38-01-3534Wiocqtxwej (Bld) [Volume fraction] 41.9 %34.0-46.4FWadsworth-Rittman HospitalLaboratory - Hematology and Cell countsOrdered By: Walter Montgomery on 99-02-9755Dbolnjvfk RBC/100 WBC (Bld) [Ratio] 0.0 %0-0.5FWadsworth-Rittman HospitalLymphocytes Auto (Bld) [#/Vol]Ordered By: Walter Montgomery on 64-07-2532Qbgxmtsectp (Bld) [#/Vol]0.7 10*3/uL1.00-4.8 [facility] HospitalLymphocytes/100 WBC Auto (Bld)Ordered By: Walter Montgomery on 72-40-6728Jjnczoidwxe/100 WBC (Bld)7.7 %.[facility] Auto (RBC) [Entitic mass]Ordered By: Walter Montgomery on 37-44-9405KXF (RBC) [Entitic mass]32.2 pg24.7-34.3FPremier Health Miami Valley Hospital NorthHC Auto (RBC) [Mass/Vol]Ordered By: Walter Montgomery on 27-87-5492IUYD (RBC) [Mass/Vol]33.9 g/dL32.0-35.0[facility] HospitalMCV Auto (RBC) [Entitic vol] Ordered By: Walter Montgomery on 53-89-4944BYV (RBC) [Entitic vol]95.1 oN32-506 [facility] HospitalMonocytes Auto (Bld) [#/Vol]Ordered By: Walter Montgomery on 90-42-3772Rvuesfngo (Bld) [#/Vol]0.2 10*3/uL0.0-0.8[facility] HospitalMonocytes/100 WBC Auto (Bld)Ordered By: Walter Montgomery on 12-13-2021 Monocytes/100 WBC (Bld)1.8 %.[facility] HospitalNeutrophils Auto (Bld) [#/Vol]Ordered By: Walter Montgomery on 96-98-2868Xicpyjzfwrk (Bld) [#/Vol]8.5 10*3/uL1.8-7.7FWadsworth-Rittman HospitalNeutrophils/100 WBC Auto (Bld) Ordered By: Walter Montgomery on 24-94-3496Wovfsqrzjym/100 WBC (Bld)90.4 %.[facility] HospitalNo Panel InformationOrdered By: Walter Montgomery on 12-13-2021 Estimated GFR ()> 60 mL/MinProv[facility] Hospital Comment on above:GFR estimated reference range: According to KDOQI guidelines, <60 ml/min/1.73m2 is sufficient todiagnose a patient with chronic kidney disease.Pharmacy Creatinine Clearance (Chem84.79[facility] HospitalPlatelet mean volume Auto (Bld) [Entitic vol]Ordered By: Walter Montgomery on 72-54-6119Myjkgumw mean volume (Bld) [Entitic vol]9.3 fL6.3-10.7FWadsworth-Rittman HospitalPlatelets Auto (Bld) [#/Vol]Ordered By: Walter Montgomery on 93-15-4469Whncngikn (Bld) [#/Vol]178 10*3/fE061-215YtwbxjjsgProvidence HospitalRBC Auto (Bld) [#/Vol]Ordered By: Walter Montgomery on 94-65-4254URA (Bld) [#/Vol]4.41 10*6/uL3.60-5.00UK Healthcareerum or plasma chloride measurement (moles/volume)Ordered By: Walter Montgomery on 66-66-1576Dhckfcfe [Moles/Vol]105 mmol/K09-663RimmkyxumUK Healthcareerum or plasma non-glucuronidated bilirubin measurement (mass/volume)Ordered By: Walter Montgomery on 79-00-5650Yfxmzsgbk.indirect [Mass/Vol]0.5 mg/dLUK Healthcareerum or plasma potassium measurement (moles/volume)Ordered By: Walter Montgomery on 08-13-0291Tcaboilkl [Moles/Vol]4.4 mmol/L3.5-5.1FMercy Health – The Jewish Hospitalerum or plasma sodium measurement (moles/volume)Ordered By: Walter Montgomery on 26-28-0437Vvzzpz [Moles/Vol]137 mmol/B192-980RyzzmkurmUK Healthcareerum or plasma total bilirubin measurement (mass/volume)Ordered By: Walter Montgomery on 22-93-4587Gyhijyfzm [Mass/Vol]0.7 mg/dL0.3-1.2FMercy Health – The Jewish Hospitalerum or plasma total carbon dioxide measurement (moles/volume)Ordered By: Walter Montgomery on 77-80-4781XA2 [Moles/Vol]24.6 mmol/L 22.0-30.0UK Healthcareerum or plasma urea nitrogen measurement (mass/volume)Ordered By: Walter Montgomery on 83-10-0381Bokc nitrogen [Mass/Vol]12 mg/dL9-23[facility] HospitalActivated partial thromboplastin time (aPTT) in platelet poor plasma by coagulation aOrdered By: Walter Montgomery on 68-05-5647vPWD Coag (PPP) [Time]30.0 s25.1-36.5FWadsworth-Rittman HospitalLaboratory - CoagulationOrdered By: Walter Montgomery on 94-44-6358UM Coag (PPP) [Time]14.1 s9.0-12.9[facility] HospitalPlatelet poor plasma international normalized ratio (INR) by coagulation assay (relatOrdered By: Walter Montgomery on 00-73-8379FFR Coag (PPP) [Relative time]1.3 {INR}[facility] HospitalComment on above:INR Therapeutic Range A) Pre- and [...] measurement (enzymatic activity/volume)Ordered By: Walter Montgomery on 40-00-9527DSY [Catalytic activity/Vol]92 U/G89-57OypdczhszUK Healthcareerum or plasma aspartate aminotransferase measurement (enzymatic activity/volume)Ordered By: Walter Montgomery on 37-00-5988LPR [Catalytic activity/Vol]22 U/X49-31BghotazlgProvidence HospitalAlbumin [Mass/volume] in Serum or PlasmaOrdered By: Arleen Stephen on 13-57-4131Juwruvw [Mass/Vol]2.9 g/dL3.2-5.5FWadsworth-Rittman HospitalGlobulin Calc (S) [Mass/Vol]Ordered By: Arleen Stephen on 43-03-9496Dyigchow (S) [Mass/Vol]3.0 g/dLProvidence HospitalNo Panel InformationOrdered By: Arleen Stephen on 23-02-0827Eloiqhg Glucose CommentGlu2: cleaned meterProvidence HospitalProtein [Mass/volume] in Serum or PlasmaOrdered By: Arleen Stephen on 68-58-2724Otynexy [Mass/Vol]5.9 g/dL6.1-7.9UK Healthcareerum or plasma alanine aminotransferase measurement without P-5'-P (enzymatic activiOrdered By: Arleen Stephen on 21-44-7249QMV No additional P-5'-P [Catalytic activity/Vol]16 U/W89-77SagzmrdxoUK Healthcareerum or plasma albumin/globulin mass ratioOrdered By: Arleen Stephen on 84-34-6583Loihaje/Globulin [Mass ratio]1.0 {ratio}[facility] Healthcareerum or plasma calcium measurement (mass/volume)Ordered By: Arleen Stephen on 65-95-1691Yhyidtc [Mass/Vol]9.2 mg/dL 8.2-10.2FMercy Health – The Jewish Hospitalerum or plasma glucose measurement (mass/volume)Ordered By: Arleen Stephen on 45-62-0255Zpdtgwg [Mass/Vol]204 mg/dL 70-100Prov[facility] HospitalComment on above:ADA recommended reference range Random Glucose Reference Range is dependent on time and content of last meal. Glucose of more than 200 mg/dL in a nonstressed, ambulatory subject supports the diagnosis of Diabetes Mellitus.Urine culture routineOrdered By: Tray Rosey on 14-65-9871Okehjnhv identified Cx Nom (U)Escherichia coliProvidence HospitalAutomated erythrocytes count in urine sediment (number/area)Ordered By: Tray Rosey on 05-94-7105OXT Auto (Urine sed) [#/Area]5-9 [HPF]0-4FWadsworth-Rittman HospitalAutomated leukocytes count in urine sediment (number/area)Ordered By: Tray Morrisarthy on 80-06-6054TEZ Auto (Urine sed) [#/Area]50-100 [HPF]0-4FWadsworth-Rittman Hospital Automated urine hyaline casts count (number/volume)Ordered By: Tray Morrisarthy on 67-56-7069Vmjexbs casts Auto (U) [#/Vol]None seen [LPF]0-1FWadsworth-Rittman HospitalBilirubin Test strip Ql (U)Ordered By: Tray Jer on 17-30-1070Pvjnaqmuf Ql (U)NegativeNegativeProvidence Hospital COVID-19 Positive/NegativeOrdered By: Trayumu Randle on 99-91-5586KNLX-CoV-2 (COVID-19) N gene TEJINDER+probe Ql (Resp)NegativeNegBlanchard Valley Health System Bluffton HospitalComment on above:Testing for SARS-CoV-2 by RT-PCR This test was developed and its performance characteristics determined by [employer] ([employer]) and validated at the [facility]. This test has not been FDA [...] revoked sooner.COVID-19 SOFIAOrdered By: Tray Randle on 05-87-7057AVUM-CoV+SARS-CoV-2 (COVID-19) Ag IA.rapid Ql (Resp)NegativeNegative [facility] HospitalComment on above:This is a duplicate Molly SARS Antigen (ANUP) result to be used for statistical tracking purpose only.Casts typing in urine sediment by light microscopyOrdered By: Tray Randle on 71-64-4988Hpwkw LM Nom (Urine sed)None seen [LPF]None SeenProvidence HospitalColor Auto (U)Ordered By: Tray Randle on 72-60-1779Taskr (U) YellowYellowProvidence HospitalKetones Auto test strip (U) [Mass/Vol]Ordered By: Tray Randle on 88-03-0339Lideinl (U) [Mass/Vol] NegativeNegativeProvidence HospitalNitrite Test strip Ql (U) Ordered By: Tray Randle on 72-61-9886Ukmtkbh Ql (U)PositiveNegative [facility] HospitalNo Panel InformationOrdered By: Tray Randle on 87-08-1337OBKN Antigen (LFIA)[facility] Protein Auto test strip (U) [Mass/Vol]Ordered By: Tray Randle on 12-09-2021 Protein (U) [Mass/Vol]NegativeNegativeUK Healthcarepecific gravity Auto test strip (U) [Rel density]Ordered By: Tray Randle on 86-81-7578Huyabtjt gravity (U) [Rel density]1.0301.001-1.030UK Healthcarequamous epithelial cells detection in urine sediment by light microscopyOrdered By: Tray Randle on 70-71-9368Qfdlxgfpfg cells.squamous LM Ql (Urine sed)-19 [HPF]0-2FWadsworth-Rittman HospitalTroponin I.cardiac [Mass/volume] in Serum or Plasma by High sensitivity methodOrdered By: Arleen Stephen on 23-79-4098Glaqelpv I.cardiac High sensitivity method [Mass/Vol]5 pg/mL 0-15[facility] HospitalUrine bacteria detection by automated methodOrdered By: Tray Randle on 82-28-7448Fqkqauld Auto Ql (U)4+None Seen [facility] HospitalUrine clarity by refractometry automatedOrdered By: Tray Randle on 74-64-9316Wdpgzyy Refractometry automated (U)Cloudy ClearProvidence HospitalUrine glucose measurement by automated test strip (mass/volume)Ordered By: Tray Randle on 24-72-4941Yuwqzuy Auto test strip (U) [Mass/Vol]>=1000 mg/dLNoWadsworth-Rittman Hospital Urine hemoglobin detection by automated test stripOrdered By: Tray Randle on 45-38-5388Nhevnicmsg Auto test strip Ql (U)TraceNegativeProvidence HospitalUrine lactic acid measurementOrdered By: Arleen Stephen on 34-40-7011Yeszioa (U) [Moles/Vol]1.7 mmol/L0.5-2.2FWadsworth-Rittman HospitalUrine leukocyte esterase detection by automated test stripOrdered By: Tray Randle on 31-49-1301Ehmzlnjhn esterase Auto test strip Ql (U)2+ NegativeProvidence HospitalUrobilinogen Auto test strip (U) [Mass/Vol]Ordered By: Tray Randle on 33-19-4031Rikvtuaogvpz (U) [Mass/Vol] Normal mg/dLNoWadsworth-Rittman HospitalpH Auto test strip (U)Ordered By: Tray Randle on 77-80-0890cH (U)5.5 [pH]5.0-9.0Prov[facility] HospitalA1C HEMOGLOBINon 53-44-2934WwL2t (Bld) [Mass fraction]7.5 %[employer] Other HbA1c (Bld) [Mass fraction]on 03-67-0338P5Z HEMOGLOBIN [employer] Other a1c HEMOGLOBINon 72-67-6564BhQ2c (Bld) [Mass fraction] 6 %[employer] Other Glucose - FINGER STICKon 05-27-6534Onylbym [Mass/Vol] 150 mg/dLNoFamely Other HbA1c (Bld) [Mass fraction]on 00-71-8977O2W HEMOGLOBIN [employer] Other A1C HEMOGLOBINon 31-42-4372EaV6e (Bld) [Mass fraction] 6.9 %[employer] Other Glucose - FINGER STICKon 19-05-2776Fjolibv [Mass/Vol] 244 mg/dLNort [employer] Other HbA1c (Bld) [Mass fraction]on 44-55-6803W8M HEMOGLOBIN [employer] Other PROGRESSon 27-02-7635DEMLKWEYQOF ID: [id number] Author: Clyde Hall Service: ? Author Type: [...] - RTC to see Feb 27 at [facility], to ensure complete healing, and further discuss plan of care re pathology results. - call office prn for issues/concerns Clyde Hall APRN.[facility] [id number] Visit (GYNML) TAYE GAY ([id number]) 1955 F Date Time Provider Department 02/11/19 2:30 PM CLYDE HALL ([facility]) GYNML During your visit today, we [...] call office prn for issues/concerns Clyde Hall APRN.REGULATORY SUBMISSIONS SPECIALIST Referring Provider: THEO JOAQUIN [[id number]] Allergies As of Date: 02/11/2019 Noted Allergy [...] Encounter Status:Closed by CLYDE HALL CNP on 02/12/19[facility] [id number] Visit (GYNML) TAYE GAY ([id number]) 1955 F Date Time Provider Department 01/21/19 10:45 AM THEO JOAQUIN GYNDOMINIK During your visit today, we recorded the following information about you: Temperature Pulse Blood pressure Weight 98.6 degrees 94/minute 111/52 91.4 kg Theo Joaquin MD 01/22/2019 2:06 PM Signed Gynecologic Oncology [facility] Re: Taye Gay CCF#:[id number] 01/21/2019 Dear Linwood Irwin: Taye presents for [...] note were sent to: Linwood Irwin MD ([facility]) [address] [place] [phone] CC: Jonas Yoder MD (PCP) Referring Provider: THEO JOAQUIN [[id number]] Allergies As of Date: 01/21/2019 Noted Allergy [...] Encounter Status:Closed by THEO JOAQUIN MD on 01/22/19[facility] PROGRESSon [id number] ID: [id number] Author: Theo Joaquin Service: ? Author Type: Physician Type: Progress Notes Filed: 01/22/2019 2:06 PM Note Text: Gynecologic Oncology [facility] Re: Taye Gya CCF#:[id number] 01/21/2019 Dear Linwood Irwin: Taye presents for [...] sent to: Linwood Irwin MD (DrC) [facility] [address] CC: Jonas Yoder MD (PCP)[facility]OV[facility] 79-43-2658SUUM Office Visit (GYNML) PRITITAYE ([id number]) 1955 F Date Time Provider Department 01/07/19 8:30 AM THEO JOAQUIN GYN During your visit today, we recorded the following information about you: Temperature Pulse Blood pressure Weight 98.4 degrees 124/minute 103/53 90.2 kg Theo Joaquin MD 01/10/2019 11:17 PM Signed Gynecologic Oncology [facility] Re: Taye Priti CCF#:[id number] 01/07/2019 Dear Linwood Irwin: Taye presents for [...] were sent to: Linwood Irwin MD (DrC) [address] [place] [phone] CC: Jonas Yoder MD (PCP) Referring Provider: THEO JOAQUIN [[id number]] Allergies As of Date: 01/07/2019 Noted Allergy [...] Encounter Status:Closed by THEO JOAQUIN MD on 01/10/19[facility] [id number] (GYNML) TAYE GAY ([id number]) 1955 F Date Time Provider Department 01/06/19 [...] Appointment made with Dr. Joaquin 01/07 @ 7883 for wound check Patient verbalized understanding and [...] More... Encounter Status:Closed by SHANTEL REYNOSO on 01/06/19[facility] PROGRESSon [id number] ID: [id number] Author: Theo Joaquin Service: ? Author Type: Physician Type: Progress Notes Filed: 01/10/2019 11:17 PM Note Text: Gynecologic Oncology [facility] Re: Taye Priti CC#:[id number] 01/07/2019 Dear Linwood Irwin: Taye presents for [...] note were sent to: Linwood Irwin MD ([facility]) [facility] [address] [address] CC: Jonas Yoder MD (PCP)[facility] HospitalANES Yousuf [id number] POSTHNO ID: [id number] Author: Katharina Durham Service: Anesthesiology Author Type: [...] January 01, 2019 TIME: 9:45 AM PAGER/CONTACT #:[facility]AN[facility] PREOPon [id number] PREOPHNO ID: [id number] Author: Katharina Durham Service: Anesthesiology Author Type: [...] for 7 days Inpatient medications reviewed in [facility]. I have interviewed and examined the [...] January 01, 2019 TIME: 7:35 AM PAGER/CONTACT #:[facility]ylumTORY PHYSICALon [id number] PHYSICALHNO ID: [id number] Author: Petty Shahid (Fel) Service: Gynecology Oncology [...] DATE: January 01, 2019 TIME: 7:16 AM PAGER:[facility] HospitalOPERATIVE NOon [id number] NO HNO ID: [id number] Author: Theo Joaquin Service: Gynecology Oncology Author Type: Physician Type: Operative Report Filed: 01/17/2019 7:16 PM Note Text: OPERATIVE/PROCEDURE REPORT LOG ID: [id number] SURGERY/PROCEDURE DATE: 01/01/2019 INCISION/PROCEDURE START TIME: 8:11 AM INCISION CLOSE/PROCEDURE END TIME: 8:34 AM SURGEON(S)/PROCEDURALIST(S) AND DIRECTOR GLOBAL MARKET RESEARCH(S): Surgeon(s) and Role: * Theo Joaquin - [...] January 03, 2019 TIME: 2:24 PM PAGER/CONTACT #:[facility] HospitalPT EDon [id number] EDHNO ID: [id number] Author: Patty GalvinRn) BRENDA Bernal Service: Nursing [...] flavia st Electronically Signed By: Patty Bernal RNNoSturdy Memorial HospitalPT EDHNO ID: [id number] Author: Zack GalvinRn) BRENDA Murry Service: Nursing [...] None Electronically Signed By: Zack Murry RNW[facility] EDHNO ID: [id number] Author: Jelly (Rn) BRENDA Simmons Service: Nursing [...] (RECOMMENDATION): None Electronically Signed By: Jelly Simmons RNHaverhill Pavilion Behavioral [facility] PATHOLOGYon 88-00-2812DCVUFFES PATHOLOGYSpecimen originated from [facility] Specimen #: [id number] Submitting Physician: THEO JOAQUIN MD FINAL DIAGNOSIS [...] o'clock. EL/clay 01/01/2019 Gross examination performed at [facility], [address] [place] [address] Date of Report: 01/05/2019 Date of Procedure: 01/01/2019 Date of Receipt: 01/01/2019 Submitted by: THEO JOAQUIN MD Location: [facility] Diagnostic interpretation performed at [facility], [address] [place], [place] [address]. [facility] Number: [id number] [id number] OSVALDO ID: [id number] Author: Nataliya GalvinRn) BRENDA Bell Service: Nursing Author Type: Registered [...] Nataliya Bell RN December 24, 2018 3:07 PMNormalP[facility] Health Specialty Hospital Of StoughtonConfirm Blood Typeon 12-17-2018 ABO/RH(D)PositiveWesson Women's Hospital HospitalComment on above:Performed By: #### CONABO #### [place] [address] Ufgg and SCR (30D)on 45-54-6735SDQ/RH(D)PositiveWesson Women's Hospital HospitalComment on above:Performed By: #### TSCR30 #### [place] [address] LSNOde 26-88-6826ALGWNobsity:Taye Gay MRN: Height:5' 7 (1.702 m) Weight:200 [...] 51.2 % 12/17/2018 46.0 36.0 Progress Notes (ST[facility]PERSON [facility]): Aracelis Charles, RN, RN 12/22/2018 11:38 AM Signed Pre-op teaching Procedure: vulvar surgery Physician: Location: [facility]: [phone] Date AND Time: 01/01/19 MEDICAL CLEARANCE: No [...] Naprosyn(naproxen) Agrylin NSAIDS Pepto-Bismol Aleve Ecotrin Persantine [place] Excedrin Plaquenil Anacin Heparin Plavix Ascriptin Herbals [...] - IV pain medication after surgery, IV WINDOW DRAPER if ordered by MD, discharged home with a prescription for PO pain medication, pain management after surgery, side effects of pain medication (including constipation, dizziness, drowsiness, and medication interactions). DVT PROPHYLAXIS - Early ambulation, SCDs, injectable anticoagulants (heparin, lovenox, etc) RESPIRATORY - Incentive spirometer, coughing/deep breathing exercises, ambulation. RETURN TO WORK - As directed by physician, please send any FMLA papers to physician's law secretary. SYMPTOMS TO NOTIFY MD - Fever, [...] if after hours patient instructed to call bucket operator and ask for the doctor manager electronic. Patient and family have phone number to call 24 hours/day. Patient Evaluation: Verbalizes understanding Patient and/or family express understanding of upcoming surgery and the operative process. Questions answered. Follow Up Plan: Follow up as needed Supplemental Material Given: Pre-operative teaching packet provided to the patient: INPATIENT/OUTPATIENT printed instructions; Post-operative instruction sheet, bowel prep instruction sheet For questions contact: office at [phone] Instructed By Aracelis Charles RNLongwood Hospitalerum or plasma calcidiol measurement (mass/volume)on [id number]-pucsncnuzxzyjw D3 [Mass/Vol] 32.8 ng/gJ31-860TpwqtqpgbProvidence HospitalComment on above:VITAMIN D STATUS 25(OH)VITAMIN D RANGE (ng/mL) Deficient <20 Insufficient 20 to <76Twhbnqszis19 to 100Reference: Sandra MF,Felisha SCANLON, Leon SHERWOOD, et al. Evaluation,treatment, and prevention of vitamin D deficiency; an Endocrine Society clinical practice guideline. JCEM. 2010; 96(7):1911-30.Vitamin B12 ser/plason 06-76-1493Xxgehjmro (Vitamin B12) [Mass/Vol]446 pg/sS034-418TlilhvtycProvidence HospitalBASIC METABOLIC PANELon 79-41-1410Sibaw gap11 mmol/L Normal0-19[facility] Osteopathic ClinicComment on above:Performed By: #### BMP ####[address],[place], [place] [address]NCC/Creatinine Ratio16.0 RATIONormal 8-21[facility] Osteopathic ClinicComment on above:Performed By: #### BMP ####[address],[place], [place] [address]Xrbzcxw7.1 mg/dLNormal8.5-10.4[facility] Comment on above:Performed By: #### BMP ####[address],[place], [place] [address]Icecogyb58 mmol/ZYbyoph99-683Qbjy Health SystemComment on above:Performed By: #### BMP ####[address],[place], [place] [address]AC[address] mmol/NJpsuwj12-97 [facility] ClinicComment on above:Performed By: #### BMP ####[address],[place], [place] [address]Czewtgykkx8.5 mg/dLNormal0.4-1.6[facility] Comment on above:Performed By: #### BMP ####[address],[place], [place] [address]rAET (MDRD)NormalMarietta Osteopathic ClinicComment on above:Result Comment: 134GFR ml/min/1.73m2 Stage -----90 160-89 230-59 315-29 4<15 5For -Americans, multiply EGFR result by 1.210Calculation not validated for patients under 18 years of age.Performed at [facility],[address],[place] [address]Doebhcsel By: #### BMP ####[address],[place], [place] [address]Czwuaxy mass ugyp522 mg/lYDndh78-15OtowMarietta Osteopathic ClinicComment on above:Performed By: #### BMP ####[address],[place], [place] [address]Qeacwdygm molar conc4.6 mmol/L Normal3.4-5.1LMercer County Community HospitalComment on above:Performed By: #### BMP ####[address],[place], [place] [address]Lnstnc999 mmol/XUdnpcn034-080Xpoe Health SystemComment on above:Performed By: #### BMP ####[address],[place], [place] [address]Rzst nitrogen8 mg/dLNormal8-25[facility] ClinicComment on above:Performed By: #### BMP ####[address],[place], [place] [address]DKIln 34-52-4869QMIEKGVentricular Rate : 60 BPMAtrial Rate : 60 BPMP-R Interval : 166 msQRS Duration : 80 msQ-T Interval : 432 msQTC Calculation(Bezet) : 432 msCalculated P [place] : 63 degreesCalculated R [place] : 29 degreesCalculated T [place] : 35 degreesDiagnosis:Normal sinus rhythmNormal ECGNo previous ECGs cecy ilableConfirmed by Walter Slaughter ([id number]) on 05/16/2017 3:45:18 PMNPeconic Bay Medical CenterHEMOGLOBIN,HCTon 67-47-0234Vsnojbloqx (HCT)Gtzc93-32Rxnp[address] [place] [address] Comment on above:Result Comment: 49.3Performed at [facility] Hospitalefrain,[address] [place], [place] [address]Vpnreykgz By: #### HH ####[address],[place], [place] [address]Isahkyjkvp mass conc (Bld)16.9 g/vKMfpr41.0-15.0[facility] ClinicComment on above:Performed By: #### HH ####[address] ,[place] [address] Operative Reporton 90-32-0082Kfefymsrs ReportNoMadison Avenue HospitalPOCT GLUCOSEon 76-96-9241Qgcpnsv mass ovcb114 mg/zPNgeg36-45SawaMarietta Osteopathic ClinicComment on above:Performed By: #### PCGL ####[facility] [place], [place] [address]Ybedsuv mass idut569 mg/mESvoe47-09Wnxj75 Horne StreetComment on above: Performed By: #### PCGL ####[facility] [place], [place] [address]Gpxhmwu mass uulv242 mg/lJHpaf03-13Qjzx75 Horne StreetComment on above:Performed By: #### PCGL ####[address] [place], [place] [address]Mrodeov mass ares810 mg/yMBtjj56-85Soyn75 Horne StreetComment on above:Performed By: #### PCGL ####[address] [place] [address] Vital Signs Date TimeVital SignValuePerforming UcgtkgzbnJpudzjjx97-01-7339 12:41-0400Body mass index (BMI) [Ratio]30.38 kg/m2ZplksvLinwood Irwin MD Work Phone: [phone] HospitalNfzvqktjyf47-96-2708 12:41-0400Body okaqli80 kg Linwood Irwin MD Work Phone: [phone])[address]10-14-2025 12:41-0400Diastolic blood xjkgryxt74 mm[Hg]Linwood Irwin MD Work Phone: [phone])[address]10-14-2025 12:41-0400Systolic blood osldtclw384 mm[Hg]Linwood Irwin MD Work Phone: [phone] [place], [place] [address]Lrfwafobmb72-07-4693 13:19-0400Body dhymqg970.2 cmPpatti Irwin MD Work Phone: [phone])245-[facility]2University HospitalEqlcazurne87-26-7999 13:19-0400Body mass index (BMI) [Ratio]30.07 kg/a8NjigpgLinwood Irwin MD Work Phone: University HospitalVyituqtxbz61-33-3600 13:19-0400Body sqhgoc65.09 kgLinwood Irwin MD Work Phone: [phone] [place], [place] [address]Oasanqxowc94-74-8129 13:19-0400Diastolic blood jjikmuhh76 mm[Hg]Linwood Irwin MD Work Phone: [phone]-[facility]5University HospitalKusoxfjvnl66-51-1874 13:19-0400Systolic blood arswiqys225 mm[Hg]Linwood Irwin MD Work Phone: University HospitalOnihfuvaae37-56-5777 16:15-0400Body .2 cmOz Kincaid MD Work Phone: University HospitalVuoozeljah59-19-0821 16:15-0400Body mass index (BMI) [Ratio]30.54 kg/m2Oz Kincaid MD Work Phone: University HospitalUtjhqcalud89-95-4893 16:15-0400Body fumfww47.45 kgOz Kincaid MD Work Phone: University HospitalIwdyzqgeub45-37-6827 14:23-0400Body zlgcis625.18 cmShantel Elliszara LEAD JAVA PROGRAMMER Work Phone: [phone] [place], [place] [address]35409-16-2025 14:23-0400 Body mass index (BMI) [Ratio]30.5 kg/e8Khsxigsa Rohzara LEAD JAVA PROGRAMMER Work Phone: 1(521)[address] [place], [place] 1330[address]-16-2025 14:23-0400 Body appstzxndau75 [degF]Shantel Cierra LEAD JAVA PROGRAMMER Work Phone: [phone] [place], [place] 1330[address]-16-2025 14:23-0400 Body visrfy06.45 kgBeccakanchan Corralzara LEAD JAVA PROGRAMMER Work Phone: [phone])[address]09-16-2025 14:23-0400 Diastolic blood mpfvjeqb45 mm[Hg]Shantel Cierra LEAD JAVA PROGRAMMER Work Phone: [phone])[address]09-16-2025 14:23-0400 Heart rate88 /minBeccakanchan Norton LEAD JAVA PROGRAMMER Work Phone: [phone] [place], [place] 1330909-16-2025 14:23-0400 SaO2% (BldA) [Mass fraction]96 %Shantel Cierra LEAD JAVA PROGRAMMER Work Phone: [phone] [place], [place] 6935409-16-2025 14:23-0400 Systolic blood egtzxapf862 mm[Hg]Shantel Cierra BRAYN Work Phone: 1(327)[address] [place], [place] 1330909-09-2025 13:32-0400 Body zhvlug648.18 cmBeccakanchan Elliszara LEAD JAVA PROGRAMMER Work Phone: [phone])[address]09-09-2025 13:32-0400 Body mass index (BMI) [Ratio]30.5 kg/n4YskgvxskShantel Norton LEAD JAVA PROGRAMMER Work Phone: [phone]09-09-2025 13:32-0400 Body kacpop63.5 kgShantel Norton LEAD JAVA PROGRAMMER Work Phone: [phone] [place], [place] 6935409-09-2025 13:32-0400 Diastolic blood umzpbcxz14 mm[Hg]Shantel Corralzara LEAD JAVA PROGRAMMER Work Phone: [phone] [place], [place] 6935409-09-2025 13:32-0400 Heart rate79 /Aaliyah Yeer LEAD JAVA PROGRAMMER Work Phone: [phone]09-09-2025 13:32-0400 Respiratory rate18 /Aaliyah Norton LEAD JAVA PROGRAMMER Work Phone: [phone]09-09-2025 13:32-0400 SaO2% (BldA) [Mass fraction]96 %Shantel Corralzara LEAD JAVA PROGRAMMER Work Phone: [phone] [place], [place] 6935409-09-2025 13:32-0400 Systolic blood hydqdzou120 mm[Hg]Shantel Cierra BRAYN Work Phone: 1(830)614-[address] [place], [place] 6935409-03-2025 13:47-0400 Body xkwuwq785.2 cmRoland Faust MD Work Phone: [facility]09-03-2025 13:47-0400 Body mass index (BMI) [Ratio]30.85 kg/h3UorbebhRoland Faust MD Work Phone: [facility]09-03-2025 13:47-0400 Body slfirc63.36 kgRoland Faust MD Work Phone: [facility]09-03-2025 13:47-0400 Diastolic blood oijotuwa65 mm[Hg]Roland Faust MD Work Phone: [address] [place], [place] 3[address]909-03-2025 13:47-0400 Heart rate62 /Luz Faust MD Work Phone: [facility]09-03-2025 13:47-0400 Systolic blood mm[Hg]Roland Faust MD Work Phone: [facility]08-19-2025 13:52-0400 Body rdifmp849.18 cmGloria Keita DO Work Phone: [phone])[address] [place], [place] 6155408-19-2025 13:52-0400 Body mass index (BMI) [Ratio]30.7 kg/s0Ufesci Keita DO Work Phone: 1(528)[address] [place], [place] 6155408-19-2025 13:52-0400 Body yphcpdwqdhi57.4 [degF]Sandra Debbie DO Work Phone: [phone])[address] [place], [place] 6155408-19-2025 13:52-0400 Body rlfjen59.9 kgGloria Keita DO Work Phone: 1(496)[address] [place], [place] 6155408-19-2025 13:52-0400 Diastolic blood vhlgjipp42 mm[Hg]Sandra Keita DO Work Phone: 1(283)[address] [place], [place] 6155408-19-2025 13:52-0400 Heart rate79 /minGloria Keita DO Work Phone: 1(717)[address] [place], [place] 6155408-19-2025 13:52-0400 SaO2% (BldA) [Mass fraction]98 %Sandra Keita DO Work Phone: [phone] [place], [place] [address]8-19-2025 13:52-0400 Systolic blood gknpewne77 mm[Hg]Sandra Keita DO Work Phone: 1(672)[address] [place], [place] 6155406-10-2025 13:57-0400 Body txnauo152.2 cmOz Kincaid MD Work Phone: [facility] HospitalQepcbuipod01-70-1442 13:57-0400Body mass index (BMI) [Ratio]31.48 kg/m2Oz Kincaid MD Work Phone: [facility] HospitalVywhbpcfsj51-47-0949 13:57-0400Body sccuce26.17 kgOz Kincaid MD Work Phone: [facility] HospitalGbixdutdqo42-22-1395 14:59-0400Body bnxirk704.18 cmGloria Keita DO Work Phone: 1(627)[address] [place], [place] 6155406-05-2025 14:59-0400 Body mass index (BMI) [Ratio]31.4 kg/q5Ozvrhp Keita DO Work Phone: 1(343)[address] [place], [place] 6155406-05-2025 14:59-0400 Body .17 kgGloria Keita DO Work Phone: 1(197)[address] [place], [place] 6155406-05-2025 14:59-0400 Diastolic blood yanbjmim74 mm[Hg]Sandra Keita DO Work Phone: 1(835)[address] [place], [place] 6155406-05-2025 14:59-0400 Heart rate65 /minGloria Keita DO Work Phone: 1(349)[address] [place], [place] 6155406-05-2025 14:59-0400 SaO2% (BldA) [Mass fraction]95 %Sandra Keita DO Work Phone: 1(609)[address] [place], [place] 6155406-05-2025 14:59-0400 Systolic blood nrvlycmt52 mm[Hg]Sandra Keita DO Work Phone: 1(769)[address] [place], [place] 6155405-15-2025 13:30-0400 Diastolic blood gqaslfae90 mm[Hg]Sandra Keita DO Work Phone: 1(275)[address] [place], [place] 6155405-15-2025 13:30-0400 Heart rate79 /minGloria Keita DO Work Phone: 1(530)[address] [place], [place] 6155405-15-2025 13:30-0400 Respiratory rate16 /minGloria Keita DO Work Phone: 1(142)[address] [place], [place] 6155405-15-2025 13:30-0400 SaO2% (BldA) [Mass fraction]95 %Sandra Keita DO Work Phone: 1(127)[address] [place], [place] 6155405-15-2025 13:30-0400 Systolic blood lzmuqrea560 mm[Hg]Sandra Keita DO Work Phone: 1(823)[address] [place], [place] 6155405-15-2025 13:00-0400 Inhaled oxygen flow rate2 L/minGloria Keita DO Work Phone: 1(905)[address] [place], [place] 6155405-15-2025 11:07-0400 Body qabcxi387.18 cmGloria Keita DO Work Phone: 1(459)[address] [place], [place] 6155405-15-2025 11:07-0400 Body .71 kgGloria Keita DO Work Phone: 1(031)[address] [place], [place] 6155405-12-2025 11:06-0400 Diastolic blood lwtmdyts47 mm[Hg]Sandra Keita DO Work Phone: 1(378)[address] [place], [place] 6155405-12-2025 11:06-0400 Systolic blood mm[Hg]Sandra Keita DO Work Phone: 1(750)[address] [place], [place] 6155404-29-2025 13:37-0400 Body tdvwum658.18 cmGloria Keita DO Work Phone: 1(331)[address] [place], [place] 6155404-29-2025 13:37-0400 Body mass index (BMI) [Ratio]31.8 kg/q0Gwfhym Keita DO Work Phone: 1(882)[address] [place], [place] 6155404-29-2025 13:37-0400 Body .16 kgGloria Keita DO Work Phone: 1(662)[address] [place], [place] 6155404-29-2025 13:37-0400 Diastolic blood tnqmcyuz46 mm[Hg]Sandra Keita DO Work Phone: 1(904)[address] [place], [place] 6155404-29-2025 13:37-0400 Heart rate71 /minGloria Keita DO Work Phone: 1(359)[address] [place], [place] 6155404-29-2025 13:37-0400 Respiratory rate18 /minGloria Keita DO Work Phone: 1(002)[address] [place], [place] 6155404-29-2025 13:37-0400 SaO2% (BldA) [Mass fraction]96 %Sandra Keita DO Work Phone: 1(862)[address] [place], [place] 6155404-29-2025 13:37-0400 Systolic blood lkyarxuu380 mm[Hg]Sandra Keita DO Work Phone: 1(601)[address] [place], [place] 6155404-24-2025 10:03-0400 Body gqxujy077.18 cmGloria Keita DO Work Phone: 1(186)[address] [place], [place] 6155404-24-2025 10:03-0400 Body mass index (BMI) [Ratio]32.2 kg/v8Kdbxmx Keita DO Work Phone: 1(763)[address] [place], [place] 6155404-24-2025 10:03-0400 Body twaxyk23.3 kgGloria Keita DO Work Phone: 1(924)[address] [place], [place] 6155404-24-2025 10:03-0400 Diastolic blood blnicyvr26 mm[Hg]Sandra Keita DO Work Phone: 1(980)[address] [place], [place] 6155404-24-2025 10:03-0400 Heart rate64 /minGloria Keita DO Work Phone: 1(608)[address] [place], [place] 6155404-24-2025 10:03-0400 Respiratory rate18 /minGloria Keita DO Work Phone: 1(657)[address] [place], [place] 6155404-24-2025 10:03-0400 SaO2% (BldA) [Mass fraction]94 %Sandra Keita DO Work Phone: 1(722)[address] [place], [place] 6155404-24-2025 10:03-0400 Systolic blood fswsyxjz432 mm[Hg]Sandra Keita DO Work Phone: 1(435)[address] [place], [place] 6155403-26-2025 11:19-0400 Body zrnsqy680.18 cmGloria Keita DO Work Phone: 1(389)[address] [place], [place] 6155403-26-2025 11:19-0400 Body mass index (BMI) [Ratio]31.3 kg/b9Wqjqci Keita DO Work Phone: 1(004)[address] [place], [place] 6155403-26-2025 11:19-0400 Body mdaggmcgvdi94.2 [degF]Sandra Keita DO Work Phone: 1(082)[address] [place], [place] 6155403-26-2025 11:19-0400 Body apwhcu48.71 kgGloria Keita DO Work Phone: 1(679)[address] [place], [place] 6155403-26-2025 11:19-0400 Diastolic blood pylurdzt03 mm[Hg]Sandra Keita DO Work Phone: 1(539)[address] [place], [place] 6155403-26-2025 11:19-0400 Heart rate72 /minGloria Keita DO Work Phone: 1(619)[address] [place], [place] 6155403-26-2025 11:19-0400 Respiratory rate16 /minGloria Keita DO Work Phone: 1(667)[address] [place], [place] 6155403-26-2025 11:19-0400 SaO2% (BldA) [Mass fraction]98 %Sandra Keita DO Work Phone: 1(275)[address] [place], [place] 6155403-26-2025 11:19-0400 Systolic blood agullhyp520 mm[Hg]Sandra Keita DO Work Phone: 1(779)[address] [place], [place] 6155403-25-2025 14:48-0400 Body wicnaw572.2 cmOz Kincaid MD Work Phone: [facility] HospitalEwtcuoemiw91-26-2414 14:48-0400Body mass index (BMI) [Ratio]31.32 kg/m2Oz Kincaid MD Work Phone: [facility] HospitalIiqwcsjpir73-11-1307 14:48-0400Body .72 kgOz Kincaid MD Work Phone: [facility] HospitalJlmzrikedk00-17-0290 09:46-0500Body zfgymd536.2 cmRoland Faust MD Work Phone: [facility]02-28-2025 09:46-0500 Body mass index (BMI) [Ratio]32.51 kg/b5RqudlbxRoland Faust MD Work Phone: [facility]02-28-2025 09:46-0500 Body yiscmq25.17 kgRoland Faust MD Work Phone: [phone]02-28-2025 09:46-0500 Diastolic blood cypkquoi26 mm[Hg]Roland Faust MD Work Phone: 1(338)434-[address] [place], [place] 8592802-28-2025 09:46-0500 Heart rate62 /minRoland Faust MD Work Phone: 1(828)099-[address] [place], [place] 8592802-28-2025 09:46-0500 Systolic blood rhwwycqp955 mm[Hg]Roland Faust MD Work Phone: [facility]01-09-2025 13:07-0500 Body ksgwuf522.18 cmSatishoria Keita DO Work Phone: 1(826)[address] [place], [place] 6155401-09-2025 13:07-0500 Body mass index (BMI) [Ratio]32.9 kg/c3Cmyazw Keita DO Work Phone: 1([phone] [place], [place] 3295001-09-2025 13:07-0500 Body klhnaz92.3 kgGloria Keita DO Work Phone: 1(170)[address] [place], [place] 6155401-09-2025 13:07-0500 Diastolic blood mm[Hg]Sandra Keita DO Work Phone: 1(363)[address] [place], [place] [address]5401-09-2025 13:07-0500 Heart rate64 /minGlsenait Keita DO Work Phone: 1(340)[facility]01-09-2025 13:07-0500 Respiratory rate18 /minGloria Keita DO Work Phone: 1(408)[address] [place], [place] 6155401-09-2025 13:07-0500 SaO2% (BldA) [Mass fraction]97 %Sandra Keita DO Work Phone: 1(777)[address] [place], [place] 6155401-09-2025 13:07-0500 Systolic blood mm[Hg]Sandra Keita DO Work Phone: 1(888)[address] [place], [place] 6155401-02-2025 08:25-0500 Body laarowyjprr42.8 [degF]Sandra Keita DO Work Phone: 1(626)[address] [place], [place] 6155401-02-2025 08:25-0500 Diastolic blood eqnuieqd51 mm[Hg]Sandra Keita DO Work Phone: [phone] [address] [place], [place] 6155401-02-2025 08:25-0500 Heart rate64 /minGloria Keita DO Work Phone: 1(525)[address] [place], [place] 6155401-02-2025 08:25-0500 Respiratory rate18 /minGloria Keita DO Work Phone: 1(482)[address] [place], [place] 6155401-02-2025 08:25-0500 SaO2% (BldA) [Mass fraction]96 %Sandra Keita DO Work Phone: 1(588)[address] [place], [place] 6155401-02-2025 08:25-0500 Systolic blood qhljutuq870 mm[Hg]Sandra Keita DO Work Phone: 1(048)[address] [place], [place] 6155401-02-2025 05:12-0500 Body svdewq26.2 kgGloria Keita DO Work Phone: 1(635)[address] [place], [place] 6155412-31-2024 23:40-0500 Body typgcs505.18 cmGloria Keita DO Work Phone: 1(686)[address] [place], [place] 6155412-31-2024 23:19-0500 Diastolic blood xavhxoyy93 mm[Hg]Sandra Keita DO Work Phone: 1(054)[address] [place], [place] 6155412-31-2024 23:19-0500 Heart rate72 /minGloria Keita DO Work Phone: 1(106)[address] [place], [place] 6155412-31-2024 23:19-0500 Respiratory rate18 /minGloria Keita DO Work Phone: 1(518)[address] [place], [place] 6155412-31-2024 23:19-0500 SaO2% (BldA) [Mass fraction]98 %Sandra Keita DO Work Phone: 1(962)[address] [place], [place] 6155412-31-2024 23:19-0500 Systolic blood owlsnots947 mm[Hg]Sandra Keita DO Work Phone: 1(690)[address] [place], [place] 6155412-31-2024 19:39-0500 Body jhjopp097.18 cmGloria Keita DO Work Phone: 1(887)[address] [place], [place] 6155412-31-2024 19:39-0500 Body tblazuutlzz91.1 [degF]Sandra Keita DO Work Phone: 1(529)[address] [place], [place] 6155412-31-2024 19:39-0500 Body uogxoo30.4 kgGloria Keita DO Work Phone: 1(679)[address] [place], [place] 6155412-31-2024 11:35-0500 Body ucdjhk804.18 cmGloria Keita DO Work Phone: 1(384)[address] [place], [place] 6155412-31-2024 11:35-0500 Body mass index (BMI) [Ratio]32.5 kg/w4Pyvkxg Keita DO Work Phone: 1(461)[address] [place], [place] 6155412-31-2024 11:35-0500 Body ssizvi42.34 kgGloria Keita DO Work Phone: 1(968)[address] [place], [place] 6155412-31-2024 11:35-0500 Diastolic blood xaglagoy01 mm[Hg]Sandra Keita DO Work Phone: 1(333)[address] [place], [place] 6155412-31-2024 11:35-0500 Heart rate71 /minGloria Keita DO Work Phone: 1(666)[address] [place], [place] 6155412-31-2024 11:35-0500 Respiratory rate18 /minGloria Keita DO Work Phone: 1(970)[address] [place], [place] 6155412-31-2024 11:35-0500 SaO2% (BldA) [Mass fraction]94 %Sandra Keita DO Work Phone: 1(823)[address] [place], [place] 6155412-31-2024 11:35-0500 Systolic blood dcfajhgs32 mm[Hg]Sandra Keita DO Work Phone: 1(327)[address] [place], [place] 6155412-31-2024 10:15-0500 Body vpchty772.18 cmGloria Keita DO Work Phone: 1(988)[address] [place], [place] 6155412-31-2024 10:15-0500 Body mass index (BMI) [Ratio]32.7 kg/g5Gmgfkn Keita DO Work Phone: 1(231)[address] [place], [place] 6155412-31-2024 10:15-0500 Body ykxmmbqriwn05.9 [degF]Sandra Keita DO Work Phone: 1(524)[address] [place], [place] 6155412-31-2024 10:15-0500 Body ykxttg13.8 kgGloria Keita DO Work Phone: 1(796)[address] [place], [place] 6155412-31-2024 10:15-0500 Diastolic blood lkxynrhn01 mm[Hg]Sandra Keita DO Work Phone: 1(755)[address] [place], [place] 6155412-31-2024 10:15-0500 Heart rate70 /minGloria Keita DO Work Phone: 1(228)[address] [place], [place] 6155412-31-2024 10:15-0500 Respiratory rate16 /minGloria Keita DO Work Phone: 1(161)[address] [place], [place] 6155412-31-2024 10:15-0500 SaO2% (BldA) [Mass fraction]96 %Sandra Keita DO Work Phone: 1(535)[address] [place], [place] 6155412-31-2024 10:15-0500 Systolic blood dohjmxea96 mm[Hg]Sandra Keita DO Work Phone: 1(489)[address] [place], [place] 6155412-30-2024 14:29-0500 Body tfaywk437.18 cmGloria Keita DO Work Phone: 1(110)[address] [place], [place] 6155412-30-2024 14:29-0500 Body osncbydyhpx04 [degF]Sandra Keita DO Work Phone: 1(677)[address] [place], [place] 6155412-30-2024 14:29-0500 Body xeglog01.71 kgGloria Keita DO Work Phone: 1(831)[address] [place], [place] 6155412-30-2024 14:29-0500 Diastolic blood qjnyzmwn73 mm[Hg]Sandra Keita DO Work Phone: 1(892)[address] [place], [place] 6155412-30-2024 14:29-0500 Heart rate80 /minGloria Keita DO Work Phone: 1(851)[address] [place], [place] 6155412-30-2024 14:29-0500 Respiratory rate18 /minGloria Keita DO Work Phone: 1(309)[address] [place], [place] 6155412-30-2024 14:29-0500 SaO2% (BldA) [Mass fraction]93 %Sandra Keita DO Work Phone: 1(152)[address] [place], [place] 6155412-30-2024 14:29-0500 Systolic blood tzljufsv946 mm[Hg]Sandra Keita DO Work Phone: 1(528)[address] [place], [place] 6155412-17-2024 09:35-0500 Body bnydhp503.18 cmGloria Keita DO Work Phone: 1(208)[address] [place], [place] 6155412-17-2024 09:35-0500 Body mass index (BMI) [Ratio]32.1 kg/t2Ndzwfb Keita DO Work Phone: 1(349)[address] [place], [place] 6155412-17-2024 09:35-0500 Body nnqxsleaedf12 [degF]Sandra Keita DO Work Phone: 1(833)[facility] [place], [place] 3295012-17-2024 09:35-0500 Body ccujol31.98 kgGloria Keita DO Work Phone: 1(332)[address] [place], [place] 6155412-17-2024 09:35-0500 Diastolic blood unzzhexb75 mm[Hg]Sandra Keita DO Work Phone: 1(977)[address] [place], [place] 6155412-17-2024 09:35-0500 Heart rate78 /minGloria Keita DO Work Phone: 1(389)[address] [place], [place] 6155412-17-2024 09:35-0500 Respiratory rate20 /minGloria Keita DO Work Phone: 1(113)[address] [place], [place] 6155412-17-2024 09:35-0500 SaO2% (BldA) [Mass fraction]98 %Sandra Keita DO Work Phone: 1(198)[address] [place], [place] 6155412-17-2024 09:35-0500 Systolic blood gelwljkt132 mm[Hg]Sandra Keita DO Work Phone: 1(526)[address] [place], [place] 6155412-10-2024 13:26-0500 Body imyjbq550.2 cmOz Kincaid MD Work Phone: [facility] 13:26-0500Body mass index (BMI) [Ratio]31.32 kg/m2Oz Kincaid MD Work Phone: [facility]93[facility]-5409 13:26-0500Body slmxat55.72 kgOz Kincaid MD Work Phone: [facility]Kzcpgvagia46-95-4780 13:42-0500Body bhnnyh627.2 cmRoland Faust MD Work Phone: [facility]11-27-2024 13:42-0500 Body mass index (BMI) [Ratio]32.58 kg/l3NotihlcRoland Faust MD Work Phone: [facility]11-27-2024 13:42-0500 Body hsoioh12.35 kgRoland Faust MD Work Phone: [facility]11-27-2024 13:42-0500 Diastolic blood caxtecuq51 mm[Hg]Roland Faust MD Work Phone: [facility]11-27-2024 13:42-0500 Heart rate63 /minRoland Faust MD Work Phone: [facility]11-27-2024 13:42-0500 Systolic blood xskqohim046 mm[Hg]Roland Faust MD Work Phone: [facility]10-29-2024 13:55-0400 Body tyinkb212.2 cmOz Kincaid MD Work Phone: 1(157)577-[address] [place], [place] [address]Yqvtddwdib23-14-6944 13:55-0400Body mass index (BMI) [Ratio]31.32 kg/m2Oz Kincaid MD Work Phone: 1(296)225-[address] [place], [place] [address]Zdaviwcuaz10-86-2853 13:55-0400Body mchokd21.72 kgOz Kincaid MD Work Phone: 6(315)492-[address] [place], [place] [address]Pgufjwwjuq40-00-3512 13:55-0400Diastolic blood fzqtalpo33 mm[Hg]Oz Kincaid MD Work Phone: 8(690)540-[address] [place], [place] [address]Xigykepzyl75-10-4700 13:55-0400Heart rate74 /min Oz Kincaid MD Work Phone: [place] [address]Dhytkoxpih69-33-6541 13:55-0400Systolic blood eunrzllj146 mm[Hg]Oz Kincaid MD Work Phone: 6(335)321-[address] [place], [place] [address]Ldgdqdzvsg00-05-3236 13:23-0400Body .18 cmGloria Debbie DO Work Phone: [facility]10-18-2024 13:23-0400 Body cgpvca96.71 kgGloria Keita DO Work Phone: 1(478)[address] [place], [place] 6155410-07-2024 11:56-0400 Body nyhjoh450.18 cmDO Sandra Keita Work Phone: 1(671)[address] [place], [place] 6155410-07-2024 11:56-0400 Body mass index (BMI) [Ratio]31.6 kg/m2DO Sandrarebecca Keita Work Phone: 1(582)[address] [place], [place] 6155410-07-2024 11:56-0400 Body elafpu26.62 kgDO Sandrarebecca Keita Work Phone: 1(446)[address] [place], [place] 6155410-07-2024 11:56-0400 Diastolic blood qzgxefnj57 mm[Hg]DO Sandrarebecca Keita Work Phone: 1(564)[address] [place], [place] 6155410-07-2024 11:56-0400 Heart rate63 /minDO Sandra Debbie Work Phone: 1(925)[address] [place], [place] 6155410-07-2024 11:56-0400 Respiratory rate18 /minDO Sandrarebecca Keita Work Phone: 1(474)[address] [place], [place] 6155410-07-2024 11:56-0400 SaO2% (BldA) [Mass fraction]98 %DO Sandra Keita Work Phone: 1(302)[address] [place], [place] 6155410-07-2024 11:56-0400 Systolic blood mm[Hg]DO Sandra Keita Work Phone: 1(622)[address] [place], [place] 6155409-18-2024 15:38-0400 Body .18 cmDO Sandrarebecca Keita Work Phone: 1(081)[address] [place], [place] 6155409-18-2024 15:38-0400 Body mass index (BMI) [Ratio]31.3 kg/m2DO Sandrarebecca Keita Work Phone: 1(474)[address] [place], [place] 6155409-18-2024 15:38-0400 Body owylal53.77 kgDO Sandrarebecca Keita Work Phone: [facility]09-10-2024 13:18-0400 Body thkjxy882.2 cmOz Kincaid MD Work Phone: [facility]Nfmrwuuior45-79-5849 13:18-0400Body mass index (BMI) [Ratio]31.32 kg/m2Oz Kincaid MD Work Phone: [facility]Hyjpglrlei31-34-6530 13:18-0400Body .72 kgOz Kincaid MD Work Phone: 1(021)402-[address] [place], [place] [address]Yanzejybnt84-11-2790 13:18-0400Diastolic blood hovogdah80 mm[Hg]Oz Kincaid MD Work Phone: 1(201)524-[address] [place], [place] [address]Eormhgnjuf02-81-6204 13:18-0400Heart rate62 /min Oz Kincaid MD Work Phone: 1(661)218-[address] [place], [place] [address]Zzoflrnbis44-65-0228 13:18-0400Systolic blood wrnphpec874 mm[Hg]Oz Kincaid MD Work Phone: 7(075)996-[address] [place], [place] [address]Ilcjgpavco84-27-1895 10:40-0400Body edazwn888.2 cmRoland Faust MD Work Phone: [facility]08-19-2024 10:40-0400 Body mass index (BMI) [Ratio]30.48 kg/s1DdpygohRoland Faust MD Work Phone: [facility]08-19-2024 10:40-0400 Body fyiuvd63.27 kgRoland Faust MD Work Phone: [facility]08-19-2024 10:40-0400 Diastolic blood mm[Hg]Roland Faust MD Work Phone: 7(831)287-[address] [place], [place] 8592808-19-2024 10:40-0400 Heart rate73 /minRoland Faust MD Work Phone: [facility]08-19-2024 10:40-0400 Systolic blood xtlleghn085 mm[Hg]Roland Faust MD Work Phone: [facility]07-22-2024 13:14-0400 Body lifint014.18 cmDO Sandrarebecca Keita Work Phone: 1(854)[address] [place], [place] 6155407-22-2024 13:14-0400 Body mass index (BMI) [Ratio]28.6 kg/m2DO Sandra Debbie Work Phone: 1(985)[address] [place], [place] 6155407-22-2024 13:14-0400 Body fevafl39 kgDO Sandrarebecca Keita Work Phone: 1(257)[address] [place], [place] 6155407-22-2024 13:14-0400 Diastolic blood cvrefjam83 mm[Hg]DO Sandrarebecca Keita Work Phone: 1(807)[address] [place], [place] 6155407-22-2024 13:14-0400 Heart rate54 /minDO Sandra Debbie Work Phone: 1(313)[address] [place], [place] 6155407-22-2024 13:14-0400 Respiratory rate18 /minDO Sandrarebecca Keita Work Phone: 1(077)[address] [place], [place] 6155407-22-2024 13:14-0400 SaO2% (BldA) [Mass fraction]97 %DO Sandra Keita Work Phone: 1(663)[address] [place], [place] 6155407-22-2024 13:14-0400 Systolic blood evasydnh60 mm[Hg]DO Sandrarebecca Keita Work Phone: 1(428)[address] [place], [place] 6155407-18-2024 15:07-0400 Body olqemu316.18 cmDO Sandra Debbie Work Phone: 1(128)[address] [place], [place] 6155407-18-2024 15:07-0400 Body mass index (BMI) [Ratio]28.5 kg/m2DO Sandra Debbie Work Phone: 1(291)[address] [place], [place] 6155407-18-2024 15:07-0400 Body fajkfr00.8 kgDO Sandra Debbie Work Phone: [facility]07-18-2024 15:07-0400 Diastolic blood wgteehcy64 mm[Hg]DO Sandra Keita Work Phone: 1(354)1-[address] [place], [place] 3295007-18-2024 15:07-0400 Heart rate67 /minDO Sandrarebecca Keita Work Phone: 1(690)[address] [place], [place] 6155407-18-2024 15:07-0400 Respiratory rate18 /minDO Sandra Debbie Work Phone: 1(775)[address] [place], [place] 6155407-18-2024 15:07-0400 SaO2% (BldA) [Mass fraction]97 %DO Sandra Keita Work Phone: 1(105)[address]07-18-2024 15:07-0400 Systolic blood iaqwepkq529 mm[Hg]DO Sandra Keita Work Phone: 1(929)[address] [place], [place] 6155407-17-2024 13:54-0400 Body xtoxgt872.2 cmJonas Ch MD Work Phone: 1(575)358-[address] [place], [place] 8592807-17-2024 13:54-0400 Body mass index (BMI) [Ratio]28.19 kg/j9SamycegJonas Ch MD Work Phone: 3(520)173-30[facility]07-17-2024 13:54-0400 Body ottxti62.65 kgJonas Ch MD Work Phone: 1(016)819-[address] [place], [place] 8592807-17-2024 13:54-0400 Diastolic blood mm[Hg]Jonas Ch MD Work Phone: 2(385)584-[address] [place], [place] 8592807-17-2024 13:54-0400 Heart rate87 /minJonas Ch MD Work Phone: 3(565)347-[address] [place], [place] 8592807-17-2024 13:54-0400 Systolic blood jdnvuudu350 mm[Hg]Jonas Ch MD Work Phone: 7(362)945-[address] [place], [place] 8592807-16-2024 16:12-0400 Diastolic blood qdokjtin53 mm[Hg]DO Sandra Debbie Work Phone: 1(128)[address] [place], [place] 6155407-16-2024 16:12-0400 Heart rate61 /minDO Sandra Keita Work Phone: 1(148)[address] [place], [place] 6155407-16-2024 16:12-0400 Respiratory rate16 /minDO Sandra Keita Work Phone: 1(133)[address] [place], [place] 6155407-16-2024 16:12-0400 SaO2% (BldA) [Mass fraction]96 %DO Sandra Keita Work Phone: 1(608)[address] [place], [place] 6155407-16-2024 16:12-0400 Systolic blood rzcuaxcl327 mm[Hg]DO Sanrda Keita Work Phone: 1(870)[address] [place], [place] 6155407-16-2024 12:16-0400 Body jafgwnqyhqu35.5 [degF]DO Sandra Debbie Work Phone: 1(950)[address] [place], [place] 6155407-16-2024 06:00-0400 Body esenyz50.5 kgDO Sandrarebecca Keita Work Phone: 1(867)[address] [place], [place] 6155407-14-2024 08:23-0400 Body rcppxy954.18 cmDO Sandra Keita Work Phone: 1(829)[address] [place], [place] 6155407-14-2024 05:05-0400 Diastolic blood wfxfsdac47 mm[Hg]DO Sandra Debbie Work Phone: 1(042)[address] [place], [place] 6155407-14-2024 05:05-0400 Heart rate62 /minDO Sandra Keita Work Phone: 1(535)[address] [place], [place] 6155407-14-2024 05:05-0400 Respiratory rate18 /minDO Sandra Keita Work Phone: 1(099)[address] [place], [place] 6155407-14-2024 05:05-0400 SaO2% (BldA) [Mass fraction]100 %DO Sandra Keita Work Phone: 1(297)278-[address] [place], [place] 3295007-14-2024 05:05-0400 Systolic blood oxfewchv084 mm[Hg]DO Sandra Keita Work Phone: 1(168)[address]07-14-2024 03:44-0400 Body sfkdnbuugad28.1 [degF]DO Sandra Keita Work Phone: 1(694)[address] [place], [place] 6155407-13-2024 22:16-0400 Body ngqofy325.18 cmDO Sandra Keita Work Phone: 1(896)[address] [place], [place] 6155407-13-2024 22:16-0400 Body gfjaob01.64 kgDO Sandra Keita Work Phone: 1(987)[address] [place], [place] 6155407-09-2024 12:36-0400 SaO2% (BldA) [Mass fraction]100 %DO Sandra Keita Work Phone: 1(421)[address] [place], [place] 6155406-10-2024 09:48-0400 Body kahxxi108.2 cmJonas Ch MD Work Phone: [facility]06-10-2024 09:48-0400 Body mass index (BMI) [Ratio]28.19 kg/j5RcprkbkJonas Ch MD Work Phone: 5(231)532-37[facility]06-10-2024 09:48-0400 Body pcfnym22.65 kgJonas Ch MD Work Phone: [facility]06-10-2024 09:48-0400 Diastolic blood riiylzep55 mm[Hg]Jonas Ch MD Work Phone: [facility]06-10-2024 09:48-0400 Heart rate92 /minJonas Ch MD Work Phone: [facility]06-10-2024 09:48-0400 Systolic blood mm[Hg]Jonas Ch MD Work Phone: [address] [place], [place] 3235905-21-2024 13:02-0400 Body liansq781.64 cmDO Sandrarebecca Keita Work Phone: 1(623)[address] [place], [place] 6155405-21-2024 13:02-0400 Body mass index (BMI) [Ratio]29 kg/m2DO Sandrarebecca Keita Work Phone: 1(053)[address] [place], [place] 6155405-21-2024 13:02-0400 Body samkzg92.67 kgDO Sandrarebecca Keita Work Phone: 1(039)[address] [place], [place] 6155405-21-2024 13:02-0400 Diastolic blood isyjougi75 mm[Hg]DO Sandra Debbie Work Phone: 1(097)[address] [place], [place] 6155405-21-2024 13:02-0400 Heart dugu186 /minDO Sandra Keita Work Phone: 1(774)[address] [place], [place] 6155405-21-2024 13:02-0400 Respiratory rate18 /minDO Sandra Debbie Work Phone: 1(181)[address] [place], [place] 6155405-21-2024 13:02-0400 SaO2% (BldA) [Mass fraction]99 %DO Sandra Debbie Work Phone: 1(081)[address] [place], [place] 6155405-21-2024 13:02-0400 Systolic blood hvihnppb42 mm[Hg]DO Sandra Debbie Work Phone: 1(128)[address] [place], [place] 6155405-18-2024 16:11-0400 Body figvgqxrqlt60.7 [degF]DO Sandra Debbie Work Phone: 1(410)[address] [place], [place] 6155405-18-2024 16:11-0400 Diastolic blood ltjovtiw11 mm[Hg]DO Sandra Debbie Work Phone: 1(593)[address] [place], [place] 6155405-18-2024 16:11-0400 Heart rate74 /minDO Sandra Keita Work Phone: 1(763)[address] [place], [place] 6155405-18-2024 16:11-0400 Respiratory rate17 /minDO Sandra Debbie Work Phone: 1(843)[address] [place], [place] 6155405-18-2024 16:11-0400 SaO2% (BldA) [Mass fraction]95 %DO Sandra Debbie Work Phone: 1(717)[address] [place], [place] 6155405-18-2024 16:11-0400 Systolic blood fdtlluqa505 mm[Hg]DO Sandrarebecca Keita Work Phone: 1(849)[address] [place], [place] 6155405-18-2024 06:00-0400 Body .2 kgDO Sandrarebecca Keita Work Phone: 1(392)[address] [place], [place] 6155405-17-2024 12:41-0400 Body lidnid571.18 cmDO Sandrarebecca Keita Work Phone: 1(764)[address] [place], [place] 6155405-16-2024 13:58-0400 Body wnxraj329.64 cmDO Sandrarebecca Keita Work Phone: 1(277)[address] [place], [place] 6155405-16-2024 13:58-0400 Body mass index (BMI) [Ratio]29 kg/m2DO Sandra Keita Work Phone: 1(356)[address] [place], [place] 6155405-16-2024 13:58-0400 Body ymzdrk78.64 kgDO Sandrarebecca Keita Work Phone: 1(842)[address] [place], [place] 6155405-16-2024 13:58-0400 Diastolic blood jhbbowav69 mm[Hg]DO Sandrarebecca Keita Work Phone: 1(023)[address] [place], [place] 6155405-16-2024 13:58-0400 Heart qxfc401 /minDO Sandra Debbie Work Phone: 1(667)[address] [place], [place] 6155405-16-2024 13:58-0400 Respiratory rate18 /minDO Sandra Debbie Work Phone: 1(295)[address] [place], [place] 6155405-16-2024 13:58-0400 SaO2% (BldA) [Mass fraction]97 %DO Sandrarebecca Keita Work Phone: [facility]05-16-2024 13:58-0400 Systolic blood tokzhuih046 mm[Hg]DO Sandra Keita Work Phone: [facility]03-20-2024 11:43-0400 Body sqawql428.64 [facility]03-20-2024 11:43-0400Body mass index (BMI) [Ratio]28.8 kg/d4MfzmvmeoiProvidence Hospital03-20-2024 11:43-0400Body kvlzawvinsw25.8 [degF][facility]03-20-2024 11:43-0400Body sjockm99.19 kg[facility]03-20-2024 11:43-0400Diastolic blood mm[Hg][facility] 07-17-2023 11:43-0400Heart rate78 /[facility] 07-17-2023 11:43-0400Respiratory rate16 /[facility] 07-17-2023 11:43-0375PyV2% (BldA) [Mass fraction]98 %[facility]03-20-2024 11:43-0400Systolic blood fktisqgv427 mm[Hg][facility]02-21-2024 15:53-0500Body yxsnfr430.64 cmProv[facility]02-21-2024 15:53-0500Body mass index (BMI) [Ratio]28.9 kg/m2 [facility]02-21-2024 15:53-0500Body .33 kg [facility]02-21-2024 15:53-0500Diastolic blood ikbihfcc89 mm[Hg][facility]02-21-2024 15:53-0500Heart rate95 /min [facility]02-21-2024 15:53-0500Respiratory rate18 /min [facility]02-21-2024 15:53-7626SaD5% (BldA) [Mass fraction]97 %[facility]02-21-2024 15:53-0500Systolic blood lkdhishx14 mm[Hg][facility]02-14-2024 15:38-0500 Body viutij585.64 cmProv[facility]02-14-2024 15:38-0500Body mass index (BMI) [Ratio]28.5 kg/m0XkbkgqomhProvidence Hospital02-14-2024 15:38-0500Body chbfca82.28 kgProv[facility] Hospital02-14-2024 15:38-0500Diastolic blood ltuayzxg33 mm[Hg][facility] 06-12-2023 15:38-0500Heart rate95 /[facility] 06-12-2023 15:38-0500Respiratory rate18 /[facility] 06-12-2023 15:38-7703OxK0% (BldA) [Mass fraction]99 %[facility]02-14-2024 15:38-0500Systolic blood pkekbewa595 mm[Hg][facility]11-06-2023 15:00-0500Body .64 cmSandra Keita Other [employer] Other 11-06-2023 15:00-0500Body mass index (BMI) [Ratio] 29.97 kg/x3LnpjbbSandra Keita Other [employer] Other 11-06-2023 15:00-0500Body .23 kgSandra Keita Other [employer] Other [id number] 15:00-0500Diastolic blood duntkkmx72 mm[Hg] Sandra Debbie Other [employer] Other 11-06-2023 15:00-0500Respiratory rate18 /minGlsenait Keita Other [employer] Other 11-06-2023 15:00-6268AqE5% (BldA) [Mass fraction]96 % Sandra Debbie Other [employer] Other 11-06-2023 15:00-0500Systolic blood yfwuuizg64 mm[Hg] Sandra Debbie Other [employer] Other 09-11-2023 14:00-0400Body efadei682.64 cmTondra Mapus Other [employer] Other 09-11-2023 14:00-0400Body mass index (BMI) [Ratio] 30.03 kg/v0Zygrcj Mapus Other [employer] Other 09-11-2023 14:00-0400Body zdoqyn38.41 kgTondra Mapus Other [employer] Other 09-11-2023 14:00-0400Diastolic blood kgvjviat26 mm[Hg] Tondra Mapus Other [employer] Other 09-11-2023 14:00-0400Respiratory rate18 /minTondra Mapus Other [employer] Other 09-11-2023 14:00-1249AmO6% (BldA) [Mass fraction]98 % Tondra Mapus Other [employer] Other 09-11-2023 14:00-0400Systolic blood zdaiiwzk309 mm[Hg] Tondra Mapus Other [employer] Other 09-06-2023 11:00-0400Body qjpeqk100.64 Rob Noble Other [employer] Other 09-06-2023 11:00-0400Body mass index (BMI) [Ratio]29.7 kg/r1RphhknfbBrayden Noble Other [employer] Other 09-06-2023 11:00-0400Body byfbtr10.46 kgLafavian Noble Other [employer] Other 09-06-2023 11:00-0400Diastolic blood erbpyxyw40 mm[Hg] Brayden Noble Other [employer] Other 09-06-2023 11:00-0400Systolic blood lrfcjhsi632 mm[Hg] Brayden Noble Other [employer] Other 08-02-2023 15:00-0400Body .64 cmSandra Keita Other [employer] Other 08-02-2023 15:00-0400Body mass index (BMI) [Ratio] 29.58 kg/k1VvoennSandra Keita Other [employer] Other 08-02-2023 15:00-0400Body .14 kgSandra Keita Other [employer] Other 08-02-2023 15:00-0400Diastolic blood kwvzeggv50 mm[Hg] Sandra Keita Other [employer] Other 08-02-2023 15:00-0400Respiratory rate20 /minSandra Keita Other [employer] Other 08-02-2023 15:00-0980PdA9% (BldA) [Mass fraction]99 % Sandra Keita Other [employer] Other 08-02-2023 15:00-0400Systolic blood swtiqeel702 mm[Hg] Sandra Debbie Other [employer] Other 06-01-2023 14:15-0400Body arhqxd033.64 cmTondra Mapus Other [employer] Other 06-01-2023 14:15-0400Body mass index (BMI) [Ratio] 29.53 kg/x1Hdnxys Mapus Other [employer] Other 06-01-2023 14:15-0400Body cxpcwi14.01 kgTondra Mapus Other [employer] Other 06-01-2023 14:15-0400Diastolic blood hmpyopkb14 mm[Hg] Tondra Mapus Other [employer] Other 06-01-2023 14:15-0400Respiratory rate18 /minTondra Mapus Other [employer] Other 06-01-2023 14:15-7452OcF8% (BldA) [Mass fraction]97 % Tondra Mapus Other [employer] Other 06-01-2023 14:15-0400Systolic blood rjraxjie402 mm[Hg] Tondra Mapus Other [employer] Other 04-13-2023 16:15-0400Body dxchui506.64 cmGloria Keita Other [employer] Other 04-13-2023 16:15-0400Body mass index (BMI) [Ratio] 29.86 kg/u3Zhtwotsenait Keita Other [employer] Other 04-13-2023 16:15-0400Body mfmnvo00.92 kgGlsenait Keita Other [employer] Other 04-13-2023 16:15-0400Diastolic blood dmajasjq11 mm[Hg] Sandrarebecca Keita Other [employer] Other 04-13-2023 16:15-0400Respiratory rate18 /minGlsenait Keita Other [employer] Other 04-13-2023 16:15-2325JsF4% (BldA) [Mass fraction]97 % Sandrajacob Keita Other [employer] Other 04-13-2023 16:15-0400Systolic blood kknhnaoq084 mm[Hg] Sandra Debbie Other [employer] Other 02-20-2023 15:30-0500Body kbqelm531.64 cmTondra Yvonne Other [employer] Other 02-20-2023 15:30-0500Body mass index (BMI) [Ratio] 35.34 kg/b5Pekhfe Mapus Other [employer] Other 02-20-2023 15:30-0500Body jceksh08.34 kgTondra Mapus Other [employer] Other 02-20-2023 15:30-0500Diastolic blood mm[Hg] Tondra Mapus Other [employer] Other 02-20-2023 15:30-0500Respiratory rate18 /minTondra Mapus Other [employer] Other 02-20-2023 15:30-2580LlC4% (BldA) [Mass fraction]97 % Tondra Mapus Other [employer] Other 02-20-2023 15:30-0500Systolic blood ceoatnmi998 mm[Hg] Tondra Mapus Other [employer] Other 09-13-2022 14:00-0400Body .64 cmTondra Mapus Other [employer] Other 09-13-2022 14:00-0400Body mass index (BMI) [Ratio] 28.73 kg/l9Wruaup Mapus Other [employer] Other 09-13-2022 14:00-0400Body jzdsdy93.74 kgTondra Mapus Other [employer] Other 09-13-2022 14:00-0400Diastolic blood njrybwkx19 mm[Hg] Tondra Mapus Other [employer] Other 09-13-2022 14:00-0400Respiratory rate16 /minTondra Mapus Other [employer] Other 09-13-2022 14:00-4065KqH5% (BldA) [Mass fraction]97 % Tona Leonardous Other [employer] Other 09-13-2022 14:00-0400Systolic blood vovozvyd904 mm[Hg] Tondra Leonardous Other [employer] Other 08-21-2022 08:23-0400Diastolic blood ryxuurkc98 mm[Hg] DO [facility]08-21-2022 08:23-0400Heart rate82 /minDO [facility]08-21-2022 08:23-0400Respiratory rate18 /minDO [facility]08-21-2022 08:23-9469ZdG6% (BldA) [Mass fraction]98 %DO [facility]08-21-2022 08:23-0400Systolic blood tfmdrofc604 mm[Hg]DO [facility]08-21-2022 05:29-0400 Body dubhwg120.18 cmDO [facility] 12-17-2021 05:29-0400Body missnawmmby89.4 [degF]DO [facility]08-21-2022 05:29-0400Body kllrul04.55 kgDO [facility]08-18-2022 06:58-0400Body qkcakf938.18 cmDO [facility]08-18-2022 06:58-0400Body mass index (BMI) [Ratio]29.2 kg/m2DO [facility]08-18-2022 06:58-0400Body oejwzo04.8 kgDO [facility]08-17-2022 11:06-0400Body wsmpzqlcyiz44.7 [degF]DO Tray [facility]08-17-2022 11:06-0400Diastolic blood spirxspl89 mm[Hg]DO [facility] 12-13-2021 11:06-0400Heart rate88 /minDO [facility]08-17-2022 11:06-0400Respiratory rate16 /minDO Tray [facility]08-17-2022 11:06-6760OhN1% (BldA) [Mass fraction]93 %DO [facility]08-17-2022 11:06-0400Systolic blood jmfqhdse715 mm[Hg]DO [facility]08-17-2022 08:00-0400Inhaled oxygen flow rate3 L/minDO [facility]06-16-2022 11:00-0400Body faunhh301.64 cmCrispin Looney Other [employer] Other 06-16-2022 11:00-0400Body mass index (BMI) [Ratio] 29.81 kg/t7AcvcyCrispin Looney Other [employer] Other 06-16-2022 11:00-0400Body yieeea44.78 kgAvnisonny Looney Other [employer] Other 06-16-2022 11:00-0400Diastolic blood tzqnbtol66 mm[Hg] Crispin Aayush Other [employer] Other 06-16-2022 11:00-0400Respiratory rate18 /minCrispin Looney Other [employer] Other 06-16-2022 11:00-8613VcM2% (BldA) [Mass fraction]97 % Crispin Looney Other [employer] Other 06-16-2022 11:00-0400Systolic blood oucjhoyu18 mm[Hg] Crispin Looney Other [employer] Other 03-14-2022 14:30-0400Body .64 cmTondra Mapus Other [employer] Other 03-14-2022 14:30-0400Body mass index (BMI) [Ratio] 30.34 kg/j3Ltvvdg Mapus Other [employer] Other 03-14-2022 14:30-0400Body mnfiin17.28 kgTondra Mapus Other [employer] Other 03-14-2022 14:30-0400Diastolic blood nnuzpham98 mm[Hg] Tondra Mapus Other [employer] Other 03-14-2022 14:30-0400Respiratory rate16 /minTondra Mapus Other [employer] Other 03-14-2022 14:30-5984FaA5% (BldA) [Mass fraction]97 % Tondra Mapus Other [employer] Other 03-14-2022 14:30-0400Systolic blood mm[Hg] Tondra Mapus Other [employer] Other 03-07-2022 16:00-0500Body bydwuj135.64 cmKanatalie Avendañoracquel Other [employer] Other 03-07-2022 16:00-0500Body mass index (BMI) [Ratio]30.5 kg/d7SujoiRuben Hahn Other [employer] Other 03-07-2022 16:00-0500Body dnwisyldkvy50.5 [degF]Ruben Hahn Other [employer] Other 03-07-2022 16:00-0500Body ayhvrg67.73 kgRuben Hahn Other [employer] Other 03-07-2022 16:00-0500Diastolic blood mm[Hg] Ruben Hahn Other [employer] Other 03-07-2022 16:00-4441LoD3% (BldA) [Mass fraction]99 % Ruben Hahn Other [employer] Other 03-07-2022 16:00-0500Systolic blood bykjmrzu30 mm[Hg] Ruben Hahn Other [employer] Other 01-10-2022 14:15-0500Body qaqlji438.64 cmAvnisonny Looney Other [employer] Other 01-10-2022 14:15-0500Body mass index (BMI) [Ratio] 30.87 kg/b6Xtcpesonny Looney Other [employer] Other 01-10-2022 14:15-0500Body viilfr78.77 kgCrispin Aayush Other [employer] Other 01-10-2022 14:15-0500Diastolic blood scvfklgy82 mm[Hg] Crispin Looney Other [employer] Other 01-10-2022 14:15-0500Respiratory rate20 /minCrispin Looney Other [employer] Other 01-10-2022 14:15-1786GkA4% (BldA) [Mass fraction]98 % Crispin Looney Other [employer] Other 01-10-2022 14:15-0500Systolic blood fzzntdii663 mm[Hg] Crispin Looney Other [employer] Other 12-06-2021 15:00-0500Body .64 cmMattnorth Nava Other [employer] Other 12-06-2021 15:00-0500Body mass index (BMI) [Ratio] 30.99 kg/r9Pomkbaomonserrat Nava Other [employer] Other 12-06-2021 15:00-0500Body xeqecxvdtqd23.3 [degF] Tray Nava Other [employer] Other 12-06-2021 15:00-0500Body ddolde61.09 kgMattnorth Nava Other [employer] Other 12-06-2021 15:00-0500Diastolic blood mm[Hg] Tray Nava Other [employer] Other 12-06-2021 15:00-9133AlC6% (BldA) [Mass fraction]93 % Tray Ceballospratibha Other [employer] Other 12-06-2021 15:00-0500Systolic blood rksibutg171 mm[Hg] Tray Ceballospratibha Other [employer] Other 11-29-2021 15:00-0500Body zimtue107.64 cmTondra Mapus Other [employer] Other 11-29-2021 15:00-0500Body mass index (BMI) [Ratio] 30.99 kg/c4Tuohji Mapus Other [employer] Other 11-29-2021 15:00-0500Body .09 kgTondra Mapus Other [employer] Other 11-29-2021 15:00-0500Diastolic blood kbfxvojl30 mm[Hg] Tondra Mapus Other [employer] Other 11-29-2021 15:00-0500Respiratory rate20 /minTondra Mapus Other [employer] Other 11-29-2021 15:00-5172GoH3% (BldA) [Mass fraction]97 % Tondra Mapus Other [employer] Other 11-29-2021 15:00-0500Systolic blood ynisghaz966 mm[Hg] Tondra Mapus Other [employer] Other 11-01-2021 16:00-0400Body .64 cmMamonserrat Nava Other [employer] Other 11-01-2021 16:00-0400Body mass index (BMI) [Ratio] 30.66 kg/w5BeurqvyTray Nava Other [facility] Other 11-01-2021 16:00-0400Body ejnahk22.18 kgMattnorth Nava Other [facility] [employer] Other 11-01-2021 16:00-0400Diastolic blood wrvvywdq75 mm[Hg] Tray Ceballospratibha Other [facility] [employer] Other 11-01-2021 16:00-0400Systolic blood yxlrclgl354 mm[Hg] Tray Ceballospratibha Other [place] [employer] Other 05-01-2018 12:01-0400Body khhuqo122.18 cmDO Jonas Yoder Work Phone: [facility] Encounters Encounter DateEncounter TypeCare ProviderFacilityStart: 03-10-2025 End: 44-38-8135wqjcerbnlsDUELMTGFabián YODERFacility:[facility] Start: 03-10-2025 End: 90-47-1891rmvprxdbmlTKVUGQLI LEE KUZNICKIFacility:[facility] Start: 33-69-3025Eswantmhh for other preprocedural examinationMICHELHOLLY DOTSONCleveland ClinicStart: 02-28-2025 End: 66-16-2701MrotsdWcso D Bej MD Work Phone: [facility] 111Comment on above: Neurogenic painStart: 02-09-2025 End: 81-32-8352Wfmbcq outpatient visit 15 minutesLinwood Irwin MD Work Phone: [facility] [place] OBGYNComment on above:Encounter for gynecological examination; Vaginal lesionStart: 02-09-2025 End: 92-34-9656Tozacad encounter statusLinwood Irwin MD Work Phone: [facility] HealthcareStart: 02-09-2025 End: 90-02-0942swrrugnahkUTMEQG P JONESNot AvailableStart: 02-02-2025 End: 94-18-6458Ugecon OnlyLinwood Irwin MD Work Phone: [facility] External Department UnsolicitedStart: 02-02-2025 End: 43-05-5101Ezvfyd outpatient visit 10 minutesLinwood Irwin MD Work Phone: noMI [place] OBGYNComment on above:Encounter for gynecological examination; Vaginal lesion; Encounter for gynecological examination without abnormal finding; Encounter for screening for cervical cancer; Breast cancer screening by mammogramStart: 02-02-2025 End: 35-13-5000Qexjzza encounter statusLinwood Irwin MD Work Phone: noMI HealthcareStart: 02-02-2025 End: 26-19-2812Ozhwbma encounter procedureShantel Norton APRN [employer]BM[employer] SPECIALIST-CT Scan [facility] [place] Work Phone: Start: 02-02-2025 End: 46-36-9690rxznoustsvIfvqecbt Rohrbacher APRN Work Phone: [facility] Work Phone: Start: 01-19-2025 End: 60-18-6887krftllqylqRIZV D BEJNot AvailableStart: 01-19-2025 End: 42-60-8761Tmkxzu outpatient visit 15 minutesOz Kincaid MD Work Phone: noMI [facility] NeurologyComment on above: Weakness of both lower extremities (Primary Dx); Carpal tunnel syndrome, bilateral; Cognitive decline; Cervical paraspinal muscle spasm; B12 deficiency; Guyon syndrome, unspecified lateralityStart: 01-19-2025 End: 99-58-1733Kmloxr flowsheetOz Kincaid MD Work Phone: noms BM NEUROLOGYStart: 01-19-2025 End: 93-00-0865Thlndw flowsheetOz Kincaid MD Work Phone: noms BM NEUROLOGYStart: 01-12-2025 End: 91-44-5107nszvhgheboLsczsofe Cierra GODDARD Work Phone: [facility] Work Phone: Start: 01-12-2025 End: 63-03-0752Xwwufui encounter procedureShantel Norton APRN [facility] Work Phone: Start: 01-05-2025 End: 80-83-8059ktvhoxivjaGcpyxxfj Rohrbacher APRN Work Phone: [facility] Work Phone: Start: 01-05-2025 End: 19-35-8444Cpaxlia encounter procedureAngelique Russell [facility] Work Phone: Start: 12-31-2024 End: 74-85-7128drboywikzeZRDG D BEJNot AvailableStart: 30-58-2311Fqa-patient / Non-visitDarasta Medina MD-[facility] Work Phone: Start: 12-30-2024 End: 46-43-3556Labkps outpatient visit 15 minutesMolurdes Faust MD Work Phone: [facility] GadsdenComment on above:Typical atrial flutter (Multi) (Primary Dx); Nonischemic cardiomyopathy (Multi); Hypertension, unspecified type; Hypercholesteremia; Obesity (BMI 30-39.9); Current smokerStart: 12-30-2024 End: 67-54-6502fapjycykanNBUNWQDLincoln Hospital AmbulatoryStart: 12-24-2024 End: 36-60-5167Lxcugny encounter procedureSamm Medina MD-Sleep Lab Work Phone: Start: 12-24-2024 End: 88-77-7225mspcyusktnJbvvcx A Blaze Work Phone: [facility] Work Phone: Start: 12-18-2024 End: 96-55-8566Ekjtldo encounter Lenore Kincaid MD Work Phone: [facility] [facility] NeurologyComment on above: Numbness (Primary Dx); Paresthesias; Pain in both lower extremities; Lumbosacral radiculopathy at M0Hryer: 12-18-2024 End: 55-29-7920zizurcdbkcUUHQ D BEJNot AvailableStart: 12-15-2024 End: 24-75-1227ldcyjllxmoMyksow A Blaze Work Phone: [facility] Work Phone: Start: 12-15-2024 End: 71-39-2970Iwvycsq encounter procedureShantel Norton APRN [facility] Work Phone: Start: 12-11-2024 End: 34-42-7957mionpbztqlFSCW D BEJNot AvailableStart: 12-11-2024 End: 83-19-3780Ozxsblh encounter Lenore Kincaid MD Work Phone: [facility] [place] [facility] NeurologyComment on above: Hand weakness (Primary Dx); Carpal tunnel syndrome, bilateralStart: 11-23-2024 End: 43-48-6561Nkppvn outpatient visit 15 minutesKral Fritz DPM Work Phone: [facility] [place] PodiatryComment on above:Ulcer of right foot with fat layer exposed (HCC) (Primary Dx); 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); Abscess of right foot; At increased risk for emergency hospital admissionStart: 11-23-2024 End: 47-90-5106blrjfyyagkWVWNMGFOM H SMITHNot AvailableStart: 11-23-2024 End: 88-11-6703Ucrniw flowsheetKarl Fritz DPM Work Phone: no [place] PodiatryStart: 11-23-2024 End: 72-49-1107Kfleks flowsheetKarl Fritz DPM Work Phone: n[facility] [place] PodiatryStart: 11-16-2024 End: 71-32-3209Kvlebeni ReferredKarl Fritz DPM-[facility] [place] Work Phone: Start: 11-16-2024 End: 35-02-6559Nnmbme outpatient visit 25 minutesCarebecca Fritz DPM Work Phone: noms SWS PODIATRYComment on above:Ulcer of right foot with fat layer exposed (HCC) (Primary Dx); 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); Cellulitis of right foot; Deformity of toe, rightStart: 11-16-2024 End: 23-81-3186edbrgrtyueYuszrr Rebecca Keita DO Work Phone: [facility] Work Phone: Start: 11-16-2024 End: 98-84-3380Pmxvrpgn Result EncounterKarl Fritz DPM Work Phone: noms External Department UnsolicitedStart: 11-16-2024 End: 30-21-1206Ymvyafei Result EncounterKarl Fritz DPM Work Phone: noms External Department UnsolicitedStart: 11-09-2024 End: 74-06-1985uhbyrnfiojJqnipzg Romario Marc MDFacility:PM Ac Start: 10-31-2024 End: 88-77-7027IybketBgbe D Bej MD Work Phone: noms [facility] NEURO 111Comment on above:Neurogenic pain Start: 10-21-2024 End: 79-72-8487Ckuivvwxo encounterOz Kincaid MD Work Phone: noms [facility] NEURO 111Start: 10-20-2024 End: 22-96-7021Aztpmp flowsheetKarl Fritz DPM Work Phone: noms [facility] PODIATRYStart: 10-20-2024 End: 91-69-7594Fonfwa flowsheetKarl Phi Lam DPM Work Phone: noms [facility] PODIATRYStart: 10-20-2024 End: 22-94-3705Ajshns outpatient visit 25 minutesCarebecca Phi Lam DPM Work Phone: noms [facility] PODIATRYComment on above:Ulcer of right foot with fat layer exposed (HCC) (Primary Dx); 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); Blister of right foot, initial encounter; Deformity, foot, rightStart: 10-20-2024 End: 60-08-1044xbmbmtzqffCBGFUCYSG H SMITHNot AvailableStart: 10-07-2024 End: 05-57-5274Qyghkclyy encounterOz Kincaid MD Work Phone: noms [facility] NEURO 111Start: 10-06-2024 End: 17-65-0999Qhlkwn flowsheetOz Kincaid MD Work Phone: noms NEUROLOGYStart: 10-06-2024 End: 62-66-8008Pcelqq flowsMelania Kincaid MD Work Phone: noms NEUROLOGYStart: 10-06-2024 End: 38-39-5276Ezakht outpatient visit 25 minutesOz Kincaid MD Work Phone: n[facility] NEUR BComment on above:Weakness of both lower extremities (Primary Dx); Carpal tunnel syndrome, bilateral; Cognitive decline; Cervical paraspinal muscle spasm; B12 deficiency; Guyon syndrome, unspecified laterality; Numbness; Leg pain, left; Leg pain, right; Bilateral leg weaknessStart: 10-06-2024 End: 32-52-8283ngsaqiefnaXOFK D BEJNot AvailableStart: 10-05-2024 End: 28-33-8766ondnudbzrlAqnuvryAldair Marc MDFacility:PM Ac Start: 10-01-2024 End: 70-10-5301zvqkdiuyryDcjirc A Keita DO Work Phone: [facility] Work Phone: Start: 10-01-2024 End: 71-04-8061Beapfdm encounter procedureGloria Keita DO Work Phone: [facility] Work Phone: Start: 87-88-7776Sma-patient / Non-visitGloria Keita DO Work Phone: [facility] Work Phone: Start: 09-10-2024 End: 61-31-9751Wzhkcpwpg to same day surgery centerGloria Keita DO Work Phone: [facility]-Digestive Health Work Phone: Start: 09-10-2024 End: 38-86-8929zjqwdokjozEfgpvg A Keita DO Work Phone: [phone] [place] [address] Work Phone: Start: 09-07-2024 End: 12-90-6193iitldrkqoyXljobe A Keita DO Work Phone: [facility] Work Phone: Start: 09-07-2024 End: 76-50-3117Waaflih encounter procedureGloria Keita DO Work Phone: [facility] Neurosurgery Work Phone: start: 08-25-2024 End: 91-46-3250pyjcmtvmnyZkchxi A Keita DO Work Phone: [facility] Work Phone: Start: 08-25-2024 End: 28-34-5635Mkeiddk encounter procedureGloria Keita DO Work Phone: [facility] [place] Work Phone: Start: 08-20-2024 End: 90-22-3582jzbfntebnsHobguh A Debbie DO Work Phone: [facility] Work Phone: Start: 08-20-2024 End: 95-50-9104Vcgehrj encounter procedureGloria Debbie DO Work Phone: [facility] Work Phone: Start: 07-22-2024 End: 68-74-0378Lvbemwp encounter procedureGloria Keita DO Work Phone: [facility] Vascular Surg Work Phone: Start: 07-22-2024 End: 11-78-6896dxikwnasxmWleeey A Keita DO Work Phone: [facility] Work Phone: Start: 07-21-2024 End: 10-90-0587Rcabzo outpatient visit 15 minutesOz Kincaid MD Work Phone: noms SWS NEUR BComment on above:Cognitive decline (Primary Dx); Cervical paraspinal muscle spasm; B12 deficiency; Carpal tunnel syndrome, bilateral; Guyon syndrome, unspecified laterality; Neurogenic painStart: 07-21-2024 End: 93-40-9009axaaeoyxrkMJND D BEJNot AvailableStart: 07-06-2024 End: 14-54-9774tvdhmukzvmCjtxjz A Debbie DO Work Phone: [facility] Work Phone: Start: 07-06-2024 End: 52-24-3292Vkdugonv ReferredGloria Debbie DO Work Phone: [facility]-LAB Path Spec [place] HospStart: 06-26-2024 End: 82-48-7266Stktaabx Result EncounterNataliya Jane NP Other Phone: noms External Department UnsolicitedStart: 06-26-2024 End: 58-56-1013Xbmlnosf Result EncounterNataliya Jane SATURATION EQUIPMENT OPERATOR Other Phone: noms External Department UnsolicitedStart: 06-26-2024 Registered RecurringGloria Debbie DO Work Phone: [facility]-Cancer Center Acute Work Phone: Start: 06-26-2024 End: 38-16-0018Fhxymbh encounter procedureGloria Debbie DO Work Phone: [facility]-Lab [facility] [place] Work Phone: Start: 06-26-2024 End: 57-59-5961wrwstmygazSseagg A Debbie DO Work Phone: [facility] Work Phone: Start: 06-26-2024 End: 80-08-8934Zulvet outpatient visit 25 minutesMolurdes Faust MD Work Phone: uh FirelandsComment on above:Typical atrial flutter (Multi) (Primary Dx); Nonischemic cardiomyopathy (Multi); Hypercholesteremia; Hypertension, unspecified type; BMI 32.0-32.9,adult; Current smokerStart: 06-26-2024 End: 68-32-0780gjxfmdekquZNUTCBDPiedmont [facility] AmbulatoryStart: 80-43-8563Gnj-patient / Non-visitGloria Debbie DO Work Phone: [facility] Work Phone: Start: 05-25-2024 End: 16-24-7336Fiuqjjh encounter procedureGloria Debbie DO Work Phone: [facility]-MRI [facility] [place] Work Phone: Start: 05-25-2024 End: 80-91-3500qayecqwrygCgbsbl Rebecca Debbie DO Work Phone: [facility] Work Phone: Start: 05-19-2024 End: 10-30-4537Zgkswfpra encounterOz Kincaid MD Work Phone: noms [facility] NEURO 111Start: 05-07-2024 End: 25-86-2956vsdjoefdvpZuhvbk A Debbie DO Work Phone: [facility] Work Phone: Start: 05-07-2024 End: 03-42-0775Hclcxez encounter procedureGloria Debbie DO Work Phone: [facility] Work Phone: Start: 04-28-2024 End: 81-77-2155Qgcfoslqgq and management of inpatientGloria Debbie BONNER Work Phone: [facility] [place] [facility] Work Phone: Start: 04-28-2024 End: 45-89-5724pekzweddvgRyjfku A Debbie BONNER Work Phone: [facility] Work Phone: Start: 04-28-2024 End: 73-10-7887Ztgivkm encounter procedureGloria Debbie DO Work Phone: [facility] Work Phone: Start: 04-28-2024 End: 47-61-7699Zcfiwtf encounter procedureGloria Debbie DO Work Phone: [facility] Work Phone: Start: 04-27-2024 End: 13-26-4586Yrribyztx department patient visitGloria Debbie DO Work Phone: [facility]-Emergency Room Work Phone: Start: 04-14-2024 End: 02-24-6073Jfnhwrjj Result EncounterNataliya Jane SATURATION EQUIPMENT OPERATOR Work Phone: [facility] External Department UnsolicitedStart: 04-14-2024 End: 39-87-9683Wxiqrcwf Result EncounterNataliya Jane SATURATION EQUIPMENT OPERATOR Work Phone: noms External Department UnsolicitedStart: 04-14-2024 End: 97-27-8310Khsgrkw encounter procedureGlsenait Keita DO Work Phone: [facility] Work Phone: Start: 04-08-2024 End: 94-86-8200Bvofuni encounter procedureCarebecca Fritz DPM Work Phone: noms SWS PODIATRYComment on above:Ulcer of right foot, limited to breakdown of skin (CMS/HCC) (Primary Dx); Ulcer of right foot with fat layer exposed (CMS/HCC); 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)Start: 04-08-2024 End: 34-89-6068gvoikbbvfzUKWUSPSQQ H SMITHNot AvailableStart: 04-07-2024 End: 31-54-1224Jbvuxa Cecilia Kincaid MD Work Phone: noms BM NEUROLOGYStart: 04-07-2024 End: 62-13-3609Pkchmi Cecilia Kincaid MD Work Phone: noms BM NEUROLOGYStart: 04-07-2024 End: 88-47-0426Jdjfen outpatient visit 15 minutesOz Kincaid MD Work Phone: n[facility] NEUR BComment on above:Cognitive decline (Primary Dx); B12 deficiency; Neurogenic pain; Carpal tunnel syndrome, bilateral; Cervical paraspinal muscle spasm; Guyon syndrome, unspecified laterality; GranulocytosisStart: 04-07-2024 End: 22-51-8339dcukaoavcaZZCS D BEJNot AvailableStart: 03-25-2024 End: 13-72-8948dtsiyafhneSBUVLYWLincoln Hospital AmbulatoryStart: 03-25-2024 End: 51-91-8107Ujjhwu outpatient visit 10 minutesRoland Faust MD Work Phone: [facility] GadsdenComment on above:Hypertension, unspecified type; Typical atrial flutter (Multi)Start: 02-25-2024 End: 18-57-9317Hqjotu outpatient visit 25 minutesOz Kincaid MD Work Phone: n[facility] NEUR BComment on above:Cognitive decline (Primary Dx); Neurogenic pain; Carpal tunnel syndrome, bilateral; B12 deficiencyStart: 02-25-2024 End: 33-29-2861Wkewsq Cecilia Kincaid MD Work Phone: noms NEUROLOGYStart: 02-25-2024 End: 18-46-7669Ytbqzt Cecilia Kincaid MD Work Phone: noms NEUROLOGYStart: 02-25-2024 End: 56-04-6037jewtafmnrnFSTS D BEJNot AvailableStart: 02-14-2024 End: 14-06-7176zpibzzdwvpQvypgn Rebecca Keitacility:[facility] Healthcaretart: 02-14-2024 End: 05-31-5958Rczqrnmu ReferredGloria Keita DO Work Phone: [facility]ive [facility] Work Phone: Start: 02-10-2024 End: 59-25-3619Ouvwkp flowsTayler Fritz DPM Work Phone: n[facility] PODIATRYStart: 02-10-2024 End: 54-44-5489Wfwmoo flowsTayler Fritz DPM Work Phone: noms [facility] PODIATRYStart: 02-10-2024 End: 76-20-6591Dmviol outpatient visit 15 minutesCarebecca Fritz DPM Work Phone: noms [facility] PODIATRYComment on above:Ulcer of right foot, limited to breakdown of skin (CMS/HCC) (Primary Dx); Blister of right foot, subsequent encounter; 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); Ulcer of right foot with fat layer exposed (CMS/HCC)Start: 02-03-2024 End: 72-78-9543avmkrtmsmuYX Sandra Keita Work Phone: [facility] Work Phone: Start: 02-03-2024 End: 16-82-8801Leocyez encounter procedureDO Sandra Keita Work Phone: [facility] [place] Work Phone: Start: 01-27-2024 End: 22-20-9938Jvlydy flowsTayler Fritz DPM Work Phone: n[facility] PODIATRYStart: 01-27-2024 End: 02-80-2794Ynedso flowsTayler Fritz DPM Work Phone: noms [facility] PODIATRYStart: 01-27-2024 End: 74-80-7822Zvocyx outpatient visit 15 minutesKarl Fritz DPM Work Phone: noms [facility] PODIATRYComment on above:Ulcer of right foot, limited to breakdown of skin (CMS/HCC) (Primary Dx); Blister of right foot, subsequent encounter; 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)Start: 01-21-2024 End: 56-08-7142Uxeycq flowsTayler Fritz DPM Work Phone: noms [facility] PODIATRYStart: 01-21-2024 End: 65-99-8667Krgnbh flowsTayler Fritz DPM Work Phone: [facility] PODIATRYStart: 01-21-2024 End: [id number] outpatient visit 15 minutesKarl Fritz DPM Work Phone: noms [facility] PODIATRYComment on above:Ulcer of right foot, limited to breakdown of skin (CMS/HCC) (Primary Dx); Blister of right foot, initial encounter; 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)Start: 01-15-2024 End: [id number] Sandra Fernandez Keita Work Phone: [facility] Work Phone: Start: 01-15-2024 End: [id number] encounter procedureDO Sandra Keita Work Phone: [facility] Neurosurgery Work Phone: start: 01-08-2024 End: 99-93-6622Hmoezmlgx encounterOz Kincaid MD Work Phone: noms [facility] NEURO 111Start: 01-07-2024 End: 10-95-4444Sapyzk flowsTayler Fritz DPM Work Phone: noms [facility] PODIATRYStart: 01-07-2024 End: 54-25-4451Mgfhch Amalia Fritz DPM Work Phone: noms [facility] PODIATRYStart: 01-07-2024 End: 23-15-8262Xvflbf outpatient visit 25 minutesOz Kincaid MD Work Phone: noms [facility] NEUR BComment on above:Lumbosacral radiculopathy at S1 (Primary Dx); Neurogenic pain; Cervical paraspinal muscle spasm; Lumbar paraspinal muscle spasm; Carpal tunnel syndrome, bilateral; B12 deficiencyStart: 01-07-2024 End: 44-93-0992kunyjmmyypBG Sandrarebecca Keita Work Phone: [facility] Work Phone: Start: 01-07-2024 End: 23-28-2835Wlhwjgxo ReferredDO Sandra Keita Work Phone: [facility]-Lab [address] [place] Work Phone: Start: 01-07-2024 End: 51-46-6364Upkjsz outpatient visit 25 minutesCarebecca Fritz DPM Work Phone: noms [facility] PODIATRYComment on above:Ulcer of right foot, limited to breakdown of skin (CMS/HCC) (Primary Dx); Cellulitis of right footStart: 01-06-2024 End: 27-50-4537kxeinqodlaEANona Keita Work Phone: [facility] Work Phone: Start: 01-06-2024 End: 80-33-6824Moizdlh encounter procedureDO Sandra Keita Work Phone: [facility]-Ultrasound [address] [place] Work Phone: Start: 01-03-2024 End: 05-80-0379Zudsyrnp SupportOz Kincaid MD Work Phone: noms [facility] NEUR BComment on above:Carpal tunnel syndrome, bilateral (Primary Dx)Start: 01-03-2024 End: 09-11-9070Nzjafc Cecilia Kincaid MD Work Phone: noms BM NEUROLOGYStart: 01-03-2024 End: 15-28-6195Bloknx Cecilia Kincaid MD Work Phone: noms BM NEUROLOGYStart: 12-17-2023 End: 03-16-1618bqyjtbpjskKENona Keita Work Phone: [facility] Work Phone: Start: 12-17-2023 End: 03-55-0662Ywtzwxa encounter procedureDO Sandra Keita Work Phone: [facility] C[facility]-MRI [address] Work Phone: Start: 12-16-2023 End: 32-97-7656Wlfqmu outpatient visit 25 minutesMolurdes Faust MD Work Phone: uh FirelandsComment on above:High risk medication use (Primary Dx); Typical atrial flutter (Multi); Nonischemic cardiomyopathy (Multi); Hypercholesteremia; BMI 28.0-28.9,adult; BMI 30.0-30.9,adult; Current smokerStart: 12-02-2023 End: 44-95-0067clmhxzjoayAB Sandra A Keita Work Phone: [facility] Work Phone: Start: 12-02-2023 End: 08-62-4940Nkjubtd encounter procedureDO Sandra Keita Work Phone: [facility]-Lab [address] [place] Work Phone: Start: 11-26-2023 End: 11-11-6106drzvcvcuyaSM Sandra A [facility] Work Phone: [facility] Work Phone: Start: 11-26-2023 End: 87-91-8374Dumztkc encounter procedureDO Sandra Keita Work Phone: [facility]-Lab [address] [place] Work Phone: Start: 11-26-2023 End: 48-11-3629Spezgieo Result EncounterMark Lillian Kincaid MD Work Phone: noms External Department UnsolicitedStart: 11-26-2023 End: 51-47-7986Koechnlk Result EncounterMark Lillian Kincaid MD Work Phone: noms External Department UnsolicitedStart: 11-18-2023 End: 54-24-8556mzduanzicdJY Sandra Fernandez Keita Work Phone: [facility] Work Phone: Start: 11-18-2023 End: 49-07-2716Bwsauid encounter procedureDO Sandra Keita Work Phone: [facility] Family Medicine [place] Work Phone: Start: 75-64-4792Wef-patient / Non-visitDO Sandra Keita Work Phone: [facility] Pulmonary Disease Work Phone: Start: 11-15-2023 End: 45-14-0298jgzefnjbztFK Sandra Keita Work Phone: [facility] Work Phone: Start: 11-15-2023 End: 79-35-5366Nakmvvz encounter procedureDO Sandra Keita Work Phone: [facility]-Respiratory Therapy Work Phone: Start: 11-14-2023 End: 48-01-9990scagxmpbjlMA Sandra Fernandez Keita Work Phone: [facility] Work Phone: Start: 11-14-2023 End: 62-42-5219Bhmwupe encounter procedureDO Sandra Keita Work Phone: [facility] Work Phone: Start: 11-13-2023 End: 90-41-8970Nwtkxb outpatient visit 25 minutesJonas Ch MD Work Phone: uh [facility] on above:Nonischemic cardiomyopathy (Multi) (Primary Dx); Typical atrial flutter (Multi); Hypercholesteremia; Primary hypertension; Current smoker; BMI 28.0-28.9,adult; High risk medication useStart: 20-92-7371Xmq-patient / Non-visitDO Sandra Debbie Work Phone: [facility] Work Phone: Start: 11-10-2023 End: 57-28-3710Xelhfvvild and management of inpatientDO Sandra Keita Work Phone: [facility] [place] [facility] Work Phone: Start: 11-05-2023 End: 71-27-1344Gjhqopsfu to same day surgery centerDO Flores Keita Work Phone: [facility]-Electrodiagnostics Work Phone: Start: 11-05-2023 End: 39-74-1640znayqhgebnLL Gloria A Keita Work Phone: [facility] Work Phone: Start: 10-30-2023 End: 72-97-9809Trisafnj Result EncounterOz Kincaid MD Work Phone: noms External Department UnsolicitedStart: 10-30-2023 End: 35-68-5376Tfdyasoa Result EncounterOz Kincaid MD Work Phone: noms External Department UnsolicitedStart: 10-30-2023 End: 32-97-9723vigpakszlzOONona Keita Work Phone: [facility] Work Phone: Start: 10-30-2023 End: 85-08-0108Vwvdpjq encounter procedureDO Sandra Keita Work Phone: [facility]-XRay [facility] Work Phone: Start: 10-07-2023 End: 70-44-3766Tztapx outpatient visit 25 minutesJonas Ch MD Work Phone: uh [facility]formerly [facility] hospitalComment on above:Typical atrial flutter (Multi); Nonischemic cardiomyopathy (Multi); Hypertension, unspecified type; Hypercholesteremia; Smoker; Type 2 diabetes mellitus with other specified complication, unspecified whether middle or intermediate school principal insulin use (Multi); BMI 28.0-28.9,adultStart: 09-17-2023 End: 66-57-6488trlgsohdvvMRNona Keita Work Phone: [facility] Work Phone: Start: 09-17-2023 End: 50-07-2898Txjhtcv encounter procedureDO Sandra Keita Work Phone: [facility] Family [facility] Work Phone: Start: 37-95-6326Vco-patient / Non-visitDO Sandra Debbie Work Phone: [facility] [place] Work Phone: Start: 09-14-2023 End: 94-51-4484Ype-patient / Non-visitDO Sandra Debbie Work Phone: [facility] Cardiology Work Phone: Start: 09-13-2023 End: 91-76-2104Vpkmxpoigm and management of inpatientDO Sandra Debbie Work Phone: [facility] [place] [facility] Work Phone: Start: 09-12-2023 End: 66-21-9237Olxcznl encounter procedureDO Sandra Debbie Work Phone: [facility] Work Phone: Start: 96-14-0405Fev-patient / Non-visitDO Sandra Debbie Work Phone: [facility] [place] Work Phone: Start: 09-05-2023 End: 58-96-8085wytpomdrymMY Sandra A Keita Work Phone: [facility] Work Phone: Start: 09-05-2023 End: 93-61-0708Dyertct encounter procedureDO Sandra Debbie Work Phone: [facility]-Lab [address] [place] Work Phone: Start: 07-25-2023 End: 08-75-7778sjxvylewblRS Sandra A Keita Work Phone: [facility] Work Phone: Start: 07-25-2023 End: 31-64-2593Jkvniqc encounter procedureDO Sandra Debbie Work Phone: [facility] C[facility]-CT [address] Work Phone: Start: 07-17-2023 End: 94-69-4218vugsghvkkbExtmmehkxSalem City Hospital Work Phone: Start: 07-17-2023 End: 23-90-6120Slzwprw encounter procedureAt[facility] Health [facility] Vascular Surgery Work Phone: Start: 06-19-2023 End: 14-25-9875nxylmbaugnPeqmvdleeSalem City Hospital Work Phone: Start: 06-19-2023 End: 00-26-6143Qblgsxq encounter procedureAt[facility] Health [facility] Family Medicine [place] Work Phone: Start: 06-12-2023 End: 26-05-6824lbkabagymhPxqldjuwaSalem City Hospital Work Phone: Start: 06-12-2023 End: 74-35-5815Cwdibws encounter procedureAtrium Health [facility] Work Phone: Start: 06-10-2023 End: 14-64-5217lrcuqwrvidZseouh Mapus Other [employer] Other Start: 34-47-7360Suzktjwwy encounterTondra Mapus [facility] Centertart: 05-21-2023 End: 41-89-0578oppeqppnryYtuqtt Keita Other [employer] Other Start: 87-37-5062Qjfepbmnk encounterGloria DebbieBANNER BOSWELL MEDICAL [facility] Family Medicine [place]yStart: 04-30-2023 End: 74-96-7785zkdlcfhkcyFwfqfb Mapus Other [employer] Other Start: 64-15-0755Veslxghev encounterTondra Yvonne [facility] ClinicStart: 04-11-2023 End: 18-88-7153joszlkllaqXsaajf Johns Other [employer] Other Start: 75-19-4098Rybtjfjpd encounterGloria DebbieBaldwin Park HospitalyStart: 04-08-2023 End: 77-25-3487nnevilrmxcCutydd Johns Other noFam[employer] Other Start: 74-83-5470Bflcftsdc encounterGloria DebbieBaldwin Park HospitalyStart: 03-05-2023 End: 15-01-9094uhkjcccmxfKZ Jonas Yoder Work Phone: [facility] Work Phone: Start: 03-05-2023 End: 32-09-5690Exazyfw encounter Navid Yoder Work Phone: [facility] Work Phone: Start: 03-04-2023 End: 37-52-8016btqjgonpluHwuyxv Johns Other [employer] Other Start: 34-50-6781Uwonal outpatient visit 25 minutes Sandra DebbieMendocino State HospitaluskyStart: 01-28-2023 End: 23-05-8405nzbmcawllqJpbzjg Johns Other [facility] [employer] Other Start: 00-33-4173Sftetsvxe encounterGloria DebbieBaldwin Park HospitalyStart: 61-40-6542Olidrzbamq RecurringDO Jonas Yoder Work Phone: [facility] Work Phone: Start: 01-07-2023(DM) DiabetesTondra YvonneFormerly [facility] ClinicStart: 01-07-2023 End: 56-59-0399bgqwegyxklOoxney Yvonne Other [employer] Other Start: 01-02-2023 End: 19-46-5009gsjidiwcopXpknbazi McCormack Other [place] [employer] Other Start: 37-93-5914Lkypea outpatient visit 15 minutes Brayden NobleBANNER B[facility]LL [facility] GastroenterologyStart: 12-28-2022 End: 06-91-0276ydlsbopjclCkosoy Debbie Other [facility] [employer] Other Start: 21-29-9108Ydmnhwfeu encounterGloria DebbieBaldwin Park HospitalyStart: 12-18-2022 End: 53-13-6839vhheggsjnrMmmvvww Schwerer Other [facility] [employer] Other Start: 94-13-2467Giueztdbm encounterKaitlin Schwerer [facility] HospitalyStart: 12-10-2022 End: 05-89-3493oxklzltuhqGahafc Mapus Other [facility] [employer] Other Start: 74-39-4904Jycrnqixc encounterTondra Yvonne [facility] Care ClinicStart: 11-28-2022 End: 47-69-9027ueapdrqxqeOocytx Keita Other [employer] Other Start: 55-26-2475Hdswcjr encounter procedureGloria JohnsBaldwin Park HospitalyStart: 11-27-2022 End: 54-15-5619pnwozfcwktUkljhg Keita Other [employer] Other Start: 96-70-1524Feibhwnel encounterGloria [facility] CenteryStart: 11-06-2022 End: 95-23-2306kmyilybsiuBznjxi Keiat Other [facility] [employer] Other Start: 05-47-3420Mkwbymave encounterGloria [facility] CenteryStart: 09-27-2022(DM) DiabetesTondra MapusWilson Health ClinicStart: 09-27-2022 End: 16-26-7237bvxetjquozSgomfo Leonardous Other [place] [employer] Other Start: 09-10-2022 End: 49-67-2711hdbntskikeDnlkha Keita Other [facility] [employer] Other Start: 54-92-5994Jxvwaqann encounterGloria [facility] CenteryStart: 10-10-5059Oaselquvv encounterGloria [facility] CenteryStart: 09-05-2022 End: 07-23-2071cceiddielzBQ Sandra A [facility] Work Phone: [facility] Work Phone: Start: 09-05-2022 End: 07-02-2768Tvnyvwb encounter procedureDO Sandra [facility] Work Phone: [facility] Work Phone: Start: 42-39-6310Wsfkbzeab encounterGloria [facility] CenteryStart: 08-22-2022 End: 70-66-7710hxtzmvlysgRQ Sandra A [facility] Work Phone: [facility] Work Phone: Start: 08-22-2022 End: 29-02-9658Myepnpm encounter procedureDO Sandra [facility] Work Phone: [facility] C[facility]-[address] Work Phone: Start: 08-09-2022 End: 32-20-0958lokbdwvmgtUleryk Keita Other [employer] Other Start: 93-07-3352Hocwwb outpatient visit 15 minutes Sandra DebbieBANNER B[facility]WELL [facility] Family Medicine [place]Start: 08-06-2022 End: 81-45-0921tsshtqpfysPqbuiz Keita Other [facility] [employer] Other Start: 28-29-4408Pbjuxkoex encounterGloria JohnsBANNER BOSWELL MED[facility] Family Medicine [place]yStart: 07-10-2022 End: 66-37-4549otgipbedvcNleszz Keita Other [facility] [employer] Other Start: 33-62-0885Lafvleyqf encounterGloria JohnsBANNER BOSWELL MED[facility] Family Medicine [place]yStart: 07-04-2022 End: 43-59-5984pxtrfzjqxbWyafhss Rita Other [facility] [employer] Other Start: 41-11-8011Tofmpdgxq encounterRichard BinksBANNER BOSWELL MEDICAL [facility]ENTER Family Medicine [place]yStart: 06-19-2022 End: 44-12-2499awrgpzkqlsOekmhy Mapus Other [facility] [employer] Other Start: 83-07-6668Attfjgwky encounterTondra Leonardous [facility] Care ClinicStart: 06-18-2022(DM) DiabetesTondra Leonardous [facility] ClinicStart: 06-18-2022 End: 00-10-9868unlrpvprotThquux Mapus Other [facility] [employer] Other Start: 06-14-2022 End: 78-79-4608aioubicfujGzcfbk Mapus Other [employer] Other Start: 71-72-3721Bfurxnhfm encounterTondra Yvonne [facility] ClinicStart: 06-08-2022 End: 66-74-3988xkcqgiztcgGsqyrf Yvonne Other [employer] Other Start: 98-90-7378Azluxligr encounterTondra [facility] ClinicStart: 06-04-2022 End: 27-42-1085nelkzoaxxlFnjraw Keita Other [employer] Other Start: 42-27-5920Dkjfloksi encounterGloria JohnsBaldwin Park HospitalyStart: 05-30-2022 End: 46-00-5507hfsmypbajcDwyjot Keita Other [employer] Other Start: 47-57-6012Nsafoxivc encounterGloria JohnsBaldwin Park HospitalyStart: 05-24-2022 End: 40-55-6084pstoivixclSfqano Keiat Other [employer] Other Start: 50-20-5269Lkcpsfqjv encounterGloria JohnsECU Health [facility]: 04-03-2022 End: 65-21-4353mffujaveehYevaxx Keita Other [employer] Other Start: 08-91-4588Cqltjbana encounterGloria JohnsECU Health Duplin Hospital: 02-14-2022 End: 00-90-9307twtmckmwuxUgbzvk Keita Other [employer] Other Start: 05-16-4957Hvpcpiije encounterGloria JohnsECU Health [facility]plin [facility]: 01-09-2022(DM) DiabetesTondra Ana Cristina Coord[facility] Care ClinicStart: 01-09-2022 End: 39-48-3884enpipptesuKpfzsh Leonardous Other [facility] [employer] Other Start: 69-04-0541ilhtcdovybPabpd QuianaKenisha LueFacility: [place]kyStart: 79-31-6365zxjxeyurqnPdzzywfm A ClemonsFacility: [place]walkStart: 12-17-2021 End: 67-03-7770Hlphhntmi department patient visitDO Tray MorrismilanOhiohealth Arthur [facility] Ctr-Emergency RoomStart: 84-07-4445drmthscxqoLptbsjtx Tom Facility:[facility] CarolinauskyStart: 12-12-2021 End: 76-47-4112cfxuypkqhuNKCLSI AHUJAFacility:CD:[id number]: 12-11-2021 End: 69-89-0003rvnrkdhmodNCVPFW AHUJAFacility:CD:[id number]: 12-09-2021 End: 50-99-5269Ydeqppqtbh and management of inpatientDO Tray Randle [facility] [place] Med SurgStart: 10-12-2021 End: 48-30-4221vlrlwwkyxwYhobe Carnahan Other [facility] [employer] Other Start: 18-34-3439Yzwfuzu encounter procedureKevin [facility] Medicine [place]kyStart: 67-54-1764Adsayxmuv encounterKevin [facility] SadieuskyStart: 09-13-2021 End: 00-87-5754yivoixobogLrthk Carnahan Other [employer] Other Start: 40-33-2115Vypwcxlxe encounterKevin [facility] Medicine [place]Start: 08-28-2021 End: 26-67-7457tqauzffnrrYslqxv Mapus Other [facility] [employer] Other Start: 76-90-3157Scgvyncog encounterTondra MapusFPG EndocrinologyStart: 07-10-2021(DM) DiabetesTondra MapusFirelands Coordinated Care ClinicStart: 07-10-2021 End: 65-53-1623nwqqaennpaOsqlny Mapus Other [facility] [employer] Other Start: 07-03-2021 End: 94-18-5218basynmpeldTkufw Chaban Other nort [employer] Other Start: 48-15-4304Znjeyj outpatient new 30 minutesWilson [facility] Hospital SouthStart: 06-28-2021 End: 26-88-8347zcgubyeciwNorrp Carnahan Other nort [employer] Other Start: 90-22-3946Stnddqria encounterKevin CarnB[facility] Family Medicine [place]Start: 05-25-2021 End: 36-68-5237achhtfbhicZzaam Aayush Other [facility] [employer] Other Start: 75-26-5218Onpqtpqki encounterKevin CarnahanG Family Medicine [place]Start: 05-08-2021 End: 32-38-1608yjpgvtjvwqKhbis Aayush Other [facility] [employer] Other Start: 22-02-7252Fvmyrq outpatient new 45 minutesKevin CarnahanG Family Medicine [place]kyStart: 04-11-2021 End: 39-42-8058pqdpeftvatKmxiwi Mapus Other [facility] [employer] Other Start: 98-14-9858Osefmaheb encounterTondra Mapus [facility] Coordinated Care ClinicStart: 04-03-2021 End: 81-49-3027lneknzbvukQkffmvs Langenberg Other [employer] Other Start: 67-59-7907Tpqhze outpatient visit 15 minutes Tray Boom Vascular SurgeryStart: 03-27-2021(DM) DiabetesTondra Leonardous [facility] ClinicStart: 03-27-2021 End: 04-43-3647ijymqgkqxrVwvhqf Leonardous Other [facility] [employer] Other Start: 02-27-2021 End: 32-63-7167evbpaqckeyUlqgxvq Langenberg Other [facility] [employer] Other Start: 86-17-9315Jitzhe outpatient visit 15 minutes Tray [facility]om Vascular SurgeryStart: 05-16-2017 End: 09-84-8274NyxtgphrhvJWZD MD JOHNSONFacility:UNKNOWNStart: 01-25-2017 End: 00-66-4141UfdppqjietKCYHN OAKLEAF SURGICAL HOSPITALFacility:H1 Procedures DateProcedureProcedure DetailPerforming ClinicianStart: 36-17-4599Idzjzujq screenMICZOIE Anderson on above:Order Comment: Specimen Type: BLOOD SPECIMEN Ordering Facility: Address: [address] [place], [place] [address]Performed By: #### [id number] #### [facility] CLIA [id number] [address] [place] [address] [place] AMERICAStart: 37-92-2647FE of lungsJennifer Cierra LEAD JAVA PROGRAMMER Work Phone: Start: 00-01-4499LOFKASTHLOKEQ SMEAR CYTOLOGYLinwood Irwin MD Work Phone: start: 87-59-1659Pwxix foot complete minimum 3 views Karl Fritz DPM Work Phone: start: 19-70-1569HLKBIVKODLA WOUND CULTURE ([facility]) Karl Fritz DPM Work Phone: start: 57-93-4252Ipwxsiq microbial cultureGloria Keita DO Work Phone: Start: 48-17-2705CmwhzpkrpzbmhwcrjekwbdntfaKmydil Keita DO Work Phone: Start: 93-99-3571Mqrze cultureGloria Keita DO Work Phone: Start: 68-12-3562Vjlshwzj blood count with white cell differential, automatedNataliya Jane SATURATION EQUIPMENT OPERATOR Other Phone: Start: 73-41-4491Lnj routine ecg w/least 12 lds w/i&r Roland Faust MD Work Phone: Start: 38-85-4385XYZ of headGloria Keita DO Work Phone: Start: 45-98-2644Bfbgb cultureGloria Keita DO Work Phone: Start: 70-97-4351QJ angiography of headGloria Keita DO Work Phone: Start: 25-56-2641PE angiography of neck vesselsGloria Keita DO Work Phone: Start: 27-58-3509LM of head without contrastGloria Keita DO Work Phone: Start: 75-75-2295Nvcll chest X-rayGloria Keita DO Work Phone: Start: 76-96-7902Uzdcxuwkyzr Panel (PCR)Sandra Debbie DO Work Phone: Start: 18-74-1930Frgjqzjy blood count with white cell differential, automatedNataliya Jane SATURATION EQUIPMENT OPERATOR Work Phone: Start: 55-61-8052Ichnzqgthvctu metabolic panelNataliya Jane SATURATION EQUIPMENT OPERATOR Work Phone: Start: 54-38-1220FDMKFVINCRG SLIDE REVIEW ([facility])Nataliya Jane SATURATION EQUIPMENT OPERATOR Work Phone: Start: 93-43-5417Alk routine ecg w/least 12 lds w/i&r Roland Faust MD Work Phone: Start: 65-24-7176Xltaamd microbial cultureDO Sandra Keita Work Phone: Start: 13-49-2549Fhdfgn scan of lower limb veinsDO Sandra Keita Work Phone: Start: 19-79-0207AB lumbar spine wo conDKelly Keita Work Phone: Start: 98-00-7774XR pre/post mri xrayDO Sandra Keita Work Phone: Start: 45-61-6120Vib routine ecg w/least 12 lds w/i&r Roland Faust MD Work Phone: Start: 81-26-0686UKJR PROFILE (ANCA+MPO+PR3)Oz Lillian Kincaid MD Work Phone: start: 24-37-2131DIJF-CENTROMERE B ANTIBODIESOz Kincaid MD Work Phone: start: 06-98-8006VVBL-DSDNA(DBL)ABOz Kincaid MD Work Phone: start: 17-01-1328YJGN-RNPMark Lillian Kincaid MD Work Phone: Start: 50-37-3405Pwdqsguynha antibodies anaMark Lillian Kincaid MD Work Phone: start: 19-80-5340JUMPEJLCBINGB P ANTIBODIESOz Kincaid MD Work Phone: start: 41-16-1737NMBTAIR ANTIBODIESOz Kincaid MD Work Phone: start: 50-75-0372Abdomeceegn analyte qual/semiqual multiple stepOz Kincaid MD Work Phone: Start: 16-56-9076PL-1 ANTIBODYMark Lillian Kincaid MD Work Phone: start: 31-23-9641GWLBBSB AND PYRUVATEMark Lillian Kincaid MD Work Phone: start: 71-19-5268MKZMWWMWVRW 70 ANTIBODIESOz Kincaid MD Work Phone: start: 18-90-9859ZVGOUXPY ANTI-SSA/SSBMark Lillian Kincaid MD Work Phone: start: 98-12-0420XJG AUTOANTIBODIESOz Kincaid MD Work Phone: start: 69-21-0907Nbb routine ecg w/least 12 lds w/i&r Jonas Ch MD Work Phone: Start: 20-72-9512FJA of headDO Sandra Keita Work Phone: Start: 89-86-5521Lwtxncix identified in Urine by Emile Keita Work Phone: Start: 75-58-2928Ulmau Emile Flores Keita Work Phone: Start: 05-92-1511IB of head without contrastDO Sandra Keita Work Phone: Start: 46-23-8463EQBRBRU AND PYRUVATEOz Kincaid MD Work Phone: start: 30-13-5987L-ray of lumbar spine, six views including bending viewsDO Sandra Keita Work Phone: Start: 93-87-9647Bergnpnirpa [Units/volume] in Serum or PlasmaWilliaquiana Ch MD Work Phone: Start: 92-92-8559Bwihq chest X-rayDO Sandra Keita Work Phone: Start: 46-06-7931LQ of lungsDO Sandra Keita Work Phone: Start: 29-77-8746Clzc energy X-ray absorptiometryDO Jonas Yoder Work Phone: Start: 32-32-5135Ojnsxfmcq mammography of bilateral breastsDO Sandra Keita Work Phone: Start: 58-48-9550UD of lungsDO Sandra Keita Work Phone: Start: 03-94-5818Hseeobxi tomography of abdomen and pelvis with contrastDO Tray Carrasquilloart: 69-93-7966Pilybcuouq laparoscopyDO Tray Carrasquilloart: 77-09-5942SI scan of gallbladderDO Tray Randle Start: 21-71-8686QK of abdomen and pelvis without contrastDO Tray Randle Start: 43-94-3399IlwkluxvddnSsetzrj McGuinn MD Work Phone: Start: 74-96-7030Ttulmirj screenComment on above: Performed By: #### [id number] #### [place] [address] Yjfzc culture for bacteria, including anaerobic screenDO Tray NovoaARS Antigen (LFIA)DO Tray JerUrine cultureDO Trayumu Randle Urine cultureDO Tray Randle Plan of Treatment DateCare ActivityDetailAuthorStart: 08-17-2025 End: 80-08-4765Whmhxsw encounter zkjquawll47/21/2026 3:10 PM EDT Office Visit [place] [id number] [facility] [address] [place] [id number] Roland Faust MD [address] [facility] [address] [place] [address] [facility] [facility]: [facility] End: 13-21-9990Itxsppo encounter znlmtaukb36/14/2026 1:15 PM EDT Office Visit JUMA NUNN [address] [place] [address] Linwood Irwin MD [address] [place], [place] [phone] JUMA Chun OBGYNStart: 07-20-2025 End: 10-95-0454Oqpczcs encounter epihrbhhj72/24/2026 4:00 PM EDT Office Visit JUMA [facility] [address] [place] [address] Oz Kincaid MD [address] [phone] JUMA Chun [facility] Start: 02-10-2025 End: 06-46-5237Ycmxjkc encounter gpllyfqvn51/15/2025 1:00 PM EDT Office Visit JUMA HARDINGELVIRAN [address] [place] [address] Linwood Irwin MD [address] [place] [address] JUMA Chun OBGYNStart: 02-09-2025 End: 01-91-0731Hwffoub encounter kwurjzdyb90/14/2025 12:30 PM EDT Office Visit JUMA HARDINGELVIRAN [address] [place] [address] Linwood Irwin MD [address] [place] [address] JUMA Chun OBGYNStart: 01-19-2025 End: 70-47-0423Jcwylln encounter procedureNOMS SWS NEUR BStart: 12-30-2024 End: 31-84-1636Ekjcxcg encounter atrojurfj26/03/2025 1:40 PM EDT Office Visit [place] [address] [facility] [address] [place] [address] Roland Faust MD [address] [facility] [address] [place], [place] [phone] [facility]: 35-85-7315SOGWC-19 Vaccine ( season)COVID-19 Vaccine ( season)[facility] Start: 63-62-3248Ocutmhjjl vaccinationInfluenza Vaccine (#1)[facility]Start: 12-18-2024 End: 75-82-6461Bcytxun encounter procedureNOMS SWS NEUR BStart: 12-11-2024 End: 99-25-2111Gkvogpi encounter procedureNOMS SWS NEUR BStart: 11-30-2024 End: 16-43-4624Tozagzi encounter zeqeybveg30/04/2025 1:15 PM EDT Office Visit NOMJaqueline Chun Podiatry [address] [place] [address] Karl Fritz, DPM [address] [place] [address] NOMJaqueline Chun PodiatryStart: 11-23-2024 End: 10-30-1971Srnoell encounter procedureNOMS SWS PODIATRYComment on above: ArrivedStart: 11-42-7090Ktqqlwutajh Wound CultureSuperficial Wound Culture [facility]: 65-08-0889Dvhvwod stimulating hormone measurementNorman Regional HealthPlex – NormanStart: 10-28-2024 End: 80-04-3734Vnegasq encounter /02/2025 4:00 PM EDT Office Visit [facility] [address] [place] [address] Karl Fritz, DPM [address] [place] [address] NOMS SWS PODIATRYStart: 10-23-2024 End: 33-57-9720Rydqgvy encounter bmkuisleq68/27/2025 12:00 PM EDT Procedure Visit [facility] NEUR B [address] [place] [address] Oz Kincaid MD [address] [place] [address] [facility] SWS NEUR BStart: 10-20-2024 End: 63-18-7236Ngbxuql encounter onpnuqmky91/24/2025 10:45 AM EDT Office Visit [facility] [address] [place] [address] Karl Fritz DPM [address] [place] [address] ArrivedNOMS SWS PODIATRYComment on above:ArrivedStart: 10-06-2024 End: 05-64-3824NHY AND NERVE CONDUCTION STUDYEMG AND NERVE CONDUCTION STUDY Neurology Routine Numbness Leg pain, left Leg pain, right Bilateral leg weakness Expected: 10/06/2024 (Approximate), Expires: 10/06/2025[facility] Work Phone: comment on above:Expected: 10/06/2024 (Approximate), Expires: 10/06/2025Start: 10-06-2024 End: 82-62-0064Oeyzekr encounter procedureNOMS [facility] BComment on above: ArrivedStart: 09-10-2024 End: 08-39-6092DqbuwvrpcUK Healthcaretart: 98-05-4248Brvovkb referralPremier Health [facility] Work Phone: Start: 16-38-7560Fvybopc referralPremier Health [facility] Work Phone: Start: 09-26-0415Zkslt brachial pressure index [facility]: 52-73-0592Ouizi cultureUK Healthcaretart: 60-47-1499Uasnfsqv identified in Urine by Culture Urine CultureUK Healthcaretart: 01-51-5506ZzbujrddmUK Healthcaretart: 05-26-2024 End: 14-84-0075Rgmcnue encounter kqkmhxtod95/28/2025 2:40 PM EST Office Visit [address] [place] [phone] Roland Faust MD 703 [facility], [address] [place] [address] [facility]: 05-07-2024 End: 93-53-5832Qntfzoc encounter fhmooaonl39/09/2025 2:15 PM EST Office Visit [facility] [address] [place] [address] Karl Fritz, DPM [address] [place] [address] NOMS SWS PODIATRYStart: 21-60-4805DyloaudelUK Healthcaretart: 04-29-2024 End: 54-08-4591RmpaeFlower Hospitaltart: 04-29-2024 Referral to neurologistUK Healthcaretart: 04-29-2024 [facility]: 45-12-7037Upxdduiw admissionUK Healthcaretart: 47-72-0384YzwvahvnsUK Healthcaretart: 04-07-2024 End: 36-06-2178Lmjtcwt encounter phdhjpxdo31/10/2024 3:30 PM EST Office Visit [facility] [address] [place] [address] aKrl Fritz, DPM [address] [place] [address] NOMS SWS PODIATRYStart: 04-07-2024 End: 63-67-8015Yhkyrup encounter procedureNOMS SWS NEUR BComment on above: ArrivedStart: 03-27-2024 End: 90-31-4382Fxarutf encounter csveikfat45/29/2024 10:10 AM EST Office Visit [address] [place] [address] Roland Faust MD 703 [facility] [place] [address] FirelandsStart: 03-24-2024 End: 57-58-3097Lamakvi encounter ztpdywifg74/26/2024 1:30 PM EST Office Visit [facility] [address] [place] [address] Karl Fritz, DPM [address] [place] [address] NOMS SWS PODIATRYStart: 03-10-2024 End: 11-63-3341Zcwnlfu encounter ijkofadsd32/12/2024 1:30 PM EST Office Visit [facility] [address] [place] [address] Karl Fritz, DPM [address] [place] [address] NOMS SWS PODIATRYStart: 02-25-2024 End: 35-83-0511Ywzluir encounter procedureNOMS SWS NEUR BComment on above: ArrivedStart: 02-10-2024 End: 70-32-2732Iglwtps encounter procedureNOMS SWS PODIATRYComment on above: ArrivedStart: 01-28-2024 End: 68-43-8285Gkmtoqb encounter gmbxuomjp43/01/2024 1:30 PM EDT Office Visit [facility] NEUR B [address] [place] [phone] Oz Kincaid MD 8219 [facility] [address] [phone] NOM[facility] SWS NEUR BStart: 01-27-2024 End: 75-14-4716Legfznk encounter procedureNOMS SWS PODIATRYComment on above: ArrivedStart: 01-21-2024 End: 07-81-0617Tnpilai encounter ibkqjubku29/24/2024 11:00 AM EDT Office Visit [facility] [address] [place] [address] Karl Fritz DPM [address] [place] [address] ArrivedNOMS SYMMES [facility]PITAL PODIATRYComment on above:ArrivedStart: 69-77-1195Guayfabosrt Wound CultureSuperficial Wound CultureUK Healthcaretart: 01-07-2024 End: 59-05-4400DVQVIBAYEPM WOUND CULTURE ([facility])SUPERFICIAL WOUND CULTURE ([facility]) Microbiology Routine Ulcer of right foot, limited to breakdown of skin (CMS/HCC) Cellulitis of right foot Expected: 01/07/2024 (Approximate), Expires: 01/06/2025[facility] Work Phone: comment on above:Expected: 01/07/2024 (Approximate), Expires: 01/06/2025Start: 01-07-2024 End: 65-96-0093Csujuzx encounter sizlfidwf07/10/2024 1:15 PM EDT Office Visit [facility] NEUR B [address] [place] [phone] Oz Kincaid MD 5319 [facility] [address] [address] N[facility] SWS NEUR BStart: 01-07-2024 End: 23-54-2839Lucxykr encounter eialfwcuu83/10/2024 9:45 AM EDT Office Visit [facility] [address] [place] [address] Karl Fritz DPM [address] [place] [address] ArrivedNOMS [facility] PODIATRYComment on above:ArrivedStart: 82-35-1416Eifgau scan of lower limb veinsUS venous duplex [facility]: 80-96-0067DT Lower extremity vein - bilateral [facility]: 16-49-6091YCBUG-19 Vaccine ( season)COVID-19 Vaccine ( season)[facility] Start: 77-53-2444Azjdtbbft vaccinationOur Lady of Mercy HospitalStart: 77-06-8866Avzhb zinc measurementUK Healthcaretart: 12-02-2023 End: 35-49-5723PcibelwtfUK Healthcaretart: 16-80-3550Tnotzccd to Scl-70 measurementUK Healthcaretart: 43-03-0413OKS antibody measurementUK Healthcaretart: 72-65-4644UilrysexoUK Healthcaretart: 11-13-2023 End: 73-02-3198Qquexikjo aminotransferase [Enzymatic activity/volume] in Serum or Plasma by With P-5'-PAspartate Aminotransferase Lab Routine High risk medication use Expected: 11/13/2023 (Approximate),Expires: 11/12/2024[facility] Area Work Phone: Comment on above:Expected: 11/13/2023 (Approximate), Expires: 11/12/2024Start: 11-13-2023 End: 48-27-6633Sicdr metabolic 2000 panel - Serum or PlasmaBasic Metabolic Panel Lab Routine High risk medication use Expected: 11/13/2023 (Approximate), Expir es: 11/12/2024[facility] Work Phone: Comment on above:Expected: 11/13/2023 (Approximate), Expires: 11/12/2024Start: 11-13-2023 End: 20-15-1428Qahodqsr Pulmonary Function Test (Spirometry/DLCO/Lung Volumes) Complete Pulmonary Function Test (Spirometry/DLCO/Lung Volumes) PFT Routine Typical atrial flutter (Multi) Expected: 11/13/2023 (Approximate), Expires: 11/12/2024[facility] Work Phone: Comment on above:Expected: 11/13/2023 (Approximate), Expires: 11/12/2024Start: 11-13-2023 End: 81-06-9956Tyunmpu encounter /17/2024 2:00 PM EDT Office Visit [facility] [address] [facility] [address] [place] [address] Jonas Ch MD [address] [facility] [address] [place] [address] [facility]: 11-13-2023 End: 33-98-1986Uphyiguogyn [Units/volume] in Serum or PlasmaThyroid Stimulating Hormone Lab Routine High risk medication use Expected: 11/13/2023 (Approximate), Expires: 11/12/2024[facility] Work Phone: Comment on above:Expected: 11/13/2023 (Approximate), Expires: 11/12/2024Start: 11-13-2023 End: 11-53-9849NN Chest 2 ViewsXR chest 2 views Imaging Routine Typical atrial flutter (Multi) Expected: 11/13/2023 (Approximate),Expires: 11/12/2024[facility] Work Phone: Comment on above:Expected: 11/13/2023 (Approximate), Expires: 11/12/2024Start: 54-88-6542GbkkgfzbxOhiohealth Arthur [facility] CenterStart: 96-31-4622EgyurtxzjOhiohealth Arthur G.H. [facility] Cancer Center CenterStart: 90-58-1650Mvsdczld identified in Urine by CultureUK Healthcaretart: 57-28-2419Nfpypyhm to neurologistOhiohealth Arthur G.[facility] CenterStart: 67-10-4628Fvdehchu admission [facility] CenterStart: 10-15-0533Vrutesol therapy procedure [facility]: 68-68-7319Kxsqsrof to occupational therapistOhiohealth Arthur G.[facility]. [facility] CenterStart: 48-76-6181LadnfvutiOhiohealth Arthur G.[facility]. [facility] CenterStart: 38-57-4957AuwchtvumOhiohealth Arthur [facility]. [facility] CenterStart: 64-09-8076IyqlaauqdOhiohealth Arthur G.[facility]. [facility] CenterStart: 18-20-2469Ewrfh zinc measurementUK Healthcaretart: 91-65-0843DacxayifxUK Healthcaretart: 10-28-2023 End: 94-19-2716Dlzkyskfkkwoj ExternalCardioversion External Cardiac Services Routine Typical atrial flutter (Multi) Expected: 10/28/2023(Approximate), Expires: 10/06/2025[facility] Service Area Work Phone: Comment on above:Expected: 10/28/2023 (Approximate), Expires: 10/06/2025Start: 32-05-8745OnlrlceqoUK Healthcaretart: 05-30-7505Jrlypyay to cardiologistUK Healthcaretart: 70-03-8731Fyhozdkp admissionUK Healthcaretart: 12-28-2022 COVID-19 Vaccine ( season)COVID-19 Vaccine () [facility]: 60-34-8396Scbxpjdcc for osteoporosisBone Density ScanOhioHealth [facility] Medical Center: 24-91-2992Zzekldgd tomography of abdomen and pelvis with contrastCT abdomen pelvis w [facility] Hospitaltart: 12-17-2021 End: 61-65-6936Oqrprqbgc department patient visitDeparted EmergencyOhiohealth [facility] Ctr-Emergency RoomStart: 81-73-5719SghrukokgOhiohealth Arthur G.[facility]. [facility] Ctr Work Phone: Start: 59-26-4925Vfwqbcjo to urologistOhiohealth Arthur [facility]tr Work Phone: Start: 79-48-3092Zenjkvqo to general surgeonOhiohealth Arthur G.[facility] Ctr Work Phone: Start: 07-98-9453Uiyhgsip admissionTrumbull Memorial Hospital Work Phone: Start: 09-19-7050Srfxmfxaq for malignant neoplasm of breastMammogramOhioHealth [facility] Medical Center: 66-01-8427YJF High Risk: (Elderly (60+) or Population) (1 - Risk 60-74 years 1-dose series)RSV High Risk: (Elderly (60+) or Population) (1 - Risk 60-74 years 1-dose series)[facility]: 42-64-2343VSO patients and/or patients aged 60+ years (1 - 1-dose 60+ series)RSV patients and/or patients aged 60+ years (1 - 1-dose 60+ series)[facility]: 40-07-4144Xtpwwl Vaccines (1 of 2)Zoster Vaccines (1 of 2) [facility]: 60-40-4938SFyT/Tdap/Td Vaccines (1 - Tdap)DTaP/Tdap/Td Vaccines (1 - Tdap)[facility]: 32-90-7509Bymjrasuz for malignant neoplasm of cervixUnHighland District Hospital: 03-10-3202Ylzwenvhpiyh vaccinationPneumococcal Vaccine (1 of 2 - PCV)[facility]: 35-90-8028Hmjtx screening for proteinDiabetes: Urine Protein ScreeningOhioHealth Grant Medical Center: 83-59-1494Qaytfqnoo C screeningHepatitis C ScreeningUnHighland District Hospital: 17-20-9251Yogajqvx foot examinationDiabetes: Foot ExamUnHighland District Hospital: 22-61-2070Xdlfeppx screeningDiabetes: Retinopathy ScreeningUnHighland District Hospital: 02-36-3215Bwhebriabmbs Vaccine: 65+ Years (1 of 2 - PCV)Pneumococcal Vaccine: 65+ Years (1 of 2 - PCV) [facility]: 35-62-0134XAU Vaccines (1 of 1 - Standard series)MMR Vaccines (1 of 1 - Standard series)[facility]: 99-71-8496Xeapeq wellness visitUnOhio State Health System Start: 76-11-4823Lyzgvpewvz A1c measurementDiabetes: Hemoglobin H6VVlhnwntymoHighland District Hospital: 00-92-1594Fydnm panelLipid PanelUnHighland District Hospital: 07-30-1958Medicare Annual Wellness VisitMedicare Annual Wellness Visit (AWV)[facility]: 1955 Screening for malignant neoplasm of colonUntyler county hospital [facility] ClevelandStart: 59-53-1096Lgnfseari for osteoporosisBone Density ScanOhioHealth [facility]: 77-45-6523Eetxmls stimulating hormone measurementTSSelect Medical [facility] [place]: 48-28-2681Gndhg screening for protein Diabetes: Urine Protein ScreeningOur Lady of Mercy Hospital24 hour urine measurementProvidence HospitalAlbumin [Mass/volume] in Serum or PlasmaProvidence HospitalAlbumin/Globulin ratioProvidence HospitalAldolase measurementProvidence HospitalAngiotensin converting enzyme [Enzymatic activity/volume] in Serum or PlasmaProvidence HospitalAntibody measurementProvidence Hospital Arsenic measurementProvidence HospitalBacteria identified in Unspecified specimen by Aerobe cultureProvidence HospitalBacteria identified in Unspecified specimen by Aerobe cultureProvidence HospitalBorrelia burgdorferi Ab [Interpretation] in SerumProvidence HospitalBorrelia burgdorferi IgG Ab [Presence] in Serum or Plasma by ImmunoassayProvidence HospitalBorrelia burgdorferi IgG+IgM Ab [Presence] in Serum by ImmunoassayProvidence HospitalBorrelia burgdorferi IgM Ab [Presence] in Serum or Plasma by ImmunoassayProvidence HospitalCentromere protein B Ab [Units/volume] in SerumProvidence HospitalCeruloplasmin [Mass/volume] in Serum or PlasmaProvidence HospitalCeruloplasmin [Mass/volume] in Serum or [facility] HospitalComplement C3 [Mass/volume] in Serum or [facility] HospitalComplement C4 [Mass/volume] in Serum or [facility] HospitalComprehensive metabolic 1999 panel - Serum or Plasma Providence HospitalComprehensive metabolic 1999 panel - Serum or [facility] HospitalComprehensive metabolic 1999 panel - Serum or [facility] HospitalCopper [facility] Medical CenterCryoglobulin [Presence] in SerumProvidence HospitalCT Unspecified body The Jewish HospitalDBT Breast - bilateral screeningBilateral screening mammogram with tomosynthesis Imaging Routine Encounter for gynecological examination Breast cancer screening by mammogram Ordered: 02/02/2025NOCarondelet HealthComment on above:Ordered: 02/02/2025DXA Skeletal system.axial Views for bone densityProvidence HospitalElectrophoresis: kqaca-1-eivhmulzBnggtnsmmProvidence Hospital Electrophoresis: egmor-1-jhrpaemzQkyvafuasProvidence Hospital Electrophoresis: beta-globulinProvidence HospitalElectrophoresis: gamma globulinProvidence HospitalFLOWCYTOMETRY NEOGENOMIC FLOWCYTOMETRY NEOGENOMIC Lab Routine 06/26/2024 10:44 AM [facility] Saisei Work Phone: Globulin [Mass/volume] in SerumProvidence HospitalGlucose measurement estimated from glycated hemoglobinProvidence HospitalHedesert regional medical center A virus antibody, IgM typeMercy Health Willard Hospital B core antibody measurement, IgM [facility] B virus surface Ag [Presence] in Serum or Plasma by ImmunoassayProvidence HospitalHedesert regional medical center C virus IgG Ab [Presence] in Serum or Plasma by ImmunoassayProvidence HospitalHedesert regional medical center C virus RNA [log units/volume] (viral load) in Serum or Plasma by TEJINDER with probe detectionProvidence HospitalHedesert regional medical center C virus RNA [Units/volume] (viral load) in Serum or Plasma by TEJINDER with probe detectionProvidence HospitalHistone IgG Ab [Units/volume] in Serum by ImmunoassayProvidence HospitalHIV 1+2 Ab+HIV1 p24 Ag [Presence] in Serum or Plasma by ImmunoassayProvidence HospitalHomocysteine [Moles/volume] in Serum or PlasmaProvidence HospitalHomogenous nuclear Ab pattern [Titer] in SerumProvidence HospitalHomogenous nuclear Ab pattern [Titer] in SerumProvidence HospitalIgA [Mass/volume] in Serum or Plasma Providence HospitalIgG [Mass/volume] in Serum or PlasmaProvidence HospitalIgM [Mass/volume] in Serum or PlasmaProvidence HospitalIGP, APT HPV,RFX 16/18,45IGP, APT HPV,RFX 16/18,45 Lab Routine Encounter for gynecological examination without abnormal finding Encounter for screening for cervical cancer Ordered: 02/02/2025[facility] Saisei Work Phone: comment on above:Ordered: 02/02/2025IGP, APT HPV,RFX 16/18,45IGP, APT HPV,RFX 16/18,45 Lab Routine Vaginal lesion Encounter for gynecological examination without abnormal finding Encounter for screening for cervical cancer Ordered: 02/02/2025University HospitalComment on above:Ordered: 02/02/2025Immunofixation for UrineProvidence HospitalJo-1 extractable nuclear Ab [Units/volume] in SerumProvidence Hospital Lead [Presence] in BloodProvidence HospitalLutropin [Units/volume] in Serum or PlasmaProvidence HospitalMeasurement of monoclonal protein concentrationProvidence HospitalMercury [Mass/volume] in BloodProvidence HospitalMethylmalonate [Moles/volume] in Serum or PlasmaProvidence HospitalMG Breast - bilateral ScreeningProvidence HospitalMG Breast - bilateral ScreeningProvidence HospitalMitochondria M2 IgG Ab [Units/volume] in SerumProvidence HospitalMR Cervical spine WO contrastProvidence HospitalMR Thoracic spineProvidence HospitalMyeloperoxidase Ab [Units/volume] in Serum by ImmunoassayProvidence HospitalNeutrophil cytoplasmic Ab.classic [Titer] in Serum by ImmunofluorescenceProvidence HospitalNuclear Ab [Titer] in SerumProvidence HospitalNuclear Ab [Titer] in SerumProvidence HospitalP-ANCA measurementProvidence HospitalPathology ReportPathology Report Pathology and Cytology Routine Vaginal lesion Ordered: 02/02/2025University HospitalComment on above: Ordered: 02/02/2025Patient EducationOhiohealth Arthur G.[facility] Ctr Work Phone: Patient referralOhiohealth Arthur G.[facility]. [facility]tr Work Phone: Porphobilinogen [Mass/volume] in UrineProvidence HospitalProtein [Mass/volume] in Serum or PlasmaProvidence HospitalProtein [Mass/volume] in UrineProvidence HospitalProteinase 3 Ab [Units/volume] in Serum by ImmunoassayProvidence HospitalPyridoxine [Mass/volume] in Serum or PlasmaProvidence HospitalReagin Ab [Presence] in Serum by RPDelaware County HospitalRheumatoid factor [Units/volume] in Serum or PlasmaProvidence HospitalRibosomal P Ab [Units/volume] in Genesis Hospitalerum immunofixationUK Healthcarejogrens syndrome-A extractable nuclear Ab [Units/volume] in [facility] Sjogrens syndrome-B extractable nuclear Ab [Units/volume] in SerumUK Healthcaremith extractable nuclear Ab [Units/volume] in Serum UK HealthcareUPERFICIAL WOUND CULTURE ([facility] Work Phone: comment on above:Ordered: 11/16/2024Thallium [Mass/volume] in Serum or PlasmaProvidence HospitalWest Nile virus IgG Ab [Presence] in Serum by ImmunoassayProvidence HospitalWest Nile virus IgM Ab [Presence] in Serum by ImmunoassayDivine Savior Healthcare Immunizations Immunization DateImmunizationNotesCare IynzgqkeMkmticxt00-24-8378botehiy, mumps and rubella virus vaccineGlLima Memorial Hospital Other Providence HospitalNEGATED: Highlighted row has not occurred!31-50-3380Uov Shot - Documentation Purposes OnlyGlsenait Keita Other [place] [employer] Other NEGATED: Highlighted row has not occurred!04-16-2022 influenza, seasonal, injectablePatient ObjectionGlsenait Keita Other [facility] Payers DatePayer CategoryPayerPolicy [id number] [id number] Eligibility Medicare/Medicaid [id number] Health InsuranceUNBIGFORK VALLEY [facility]ALTH[facility] DUAL COMPLETE [facility] DUAL COMPLETE [id number] 2023-Present [address] [address] [place] [address] [id number] [id number] 2..[id number] [id number] 2023Medicare (Managed Care)[employer] MEDIC[employer] Member Subscriber Plan / Payer (Effective 2022-Present) Name: Taye Gay Relation to Subscriber: Self Name: Taye Gay Subscriber ID: [id number] Payer ID: [id number] (NAIC) Group ID: Not on file Type: Not on file Address: [address] [place] [address].2.840.503989.1.13.693.2.7.9.582255.778900.315 63-67-2750Rpvhgmx Health [id number] [id number] Cross Blue [id number] 2..840.8.82062[id number] [id number] [id number] 2..840.1.512664.3.57[id number] 2.16840.1.830391.3.57[id number] 2.16840.1.776001.3.57[id number] 2.16840.1.041037.3.57[id number] 2.16840.1.499284.3.57[id number] 2.0.1.868365.3.57[id number] 2.0.1.612444.3.57[id number] 2.0.1.158085.3.57[id number] 2.0.1.199226.3.57[id number] 2..1.662595.3.57[id number] 2.0.1.482690.3.57[id number] 2.0.1.465083.3.57[id number] 2.0.1.976162.3.57[id number] 2.840.1.414087.3.57[id number] 2.840.1.532476.3.57[id number] 2.16.840.1.420802.3.57[id number] 2.0.1.686246.3.57[id number] 2.0.1.311166.3.57[id number] 2..1.736353.3.57[id number] 2..1.069882.3.57[id number] 2..1.198402.3.57[id number] 2..1.116849.3.57[id number] 2..1.523028.3.57[id number] 2..1.940[id number] 2..1.847784.19Unknown [id number] 2.0.1.0[id number] 2.0.1.58432[id number] 2.0.1.688298.3.579.2.531 [id number] 2.840.1.24808[id number] 2.840.1.0933[id number] 2.840.1.753177.3.579.2.531 [id number] 2.16.840.1.3[id number] 2.16.840.1.2574[id number] 2.16.840.1.174545.3.579.2.531 [id number] 2.16.840.1.9944[id number] 2.16.840.1.463574.3.579.2.369Nqosumx99441534 2.16.840.1.594582.3.579.2.531 Social History DateTypeDetailFacilityUnknown if ever [place]West [place] [employer] Other Start: 10-07-2023 End: 94-10-1071Fco Assigned At [facility] [employer] Other Start: 12-17-2021 End: 93-45-9367Sbbndzp smoking status NHISSmoker (finding)[facility] Healthcaretart: 96-40-6554Uqo Assigned At [facility]1975 End: 62-88-6775Pgvmqgt smoking status NHISSmokes tobacco dailyUnOhio State Health SystemStart: 18-71-6814Gqsntzn of tobacco useCigarette Smoker [facility] Work Phone: Start: 79-54-7476Hflbzrl use and exposureSmokeless tobacco non-userUnOhio State Health System Work Phone: Start: 10-07-2023 End: 44-04-5598Lwfzgatdy beverage intakeLifetime non-drinker (finding)[facility] Work Phone: Start: 10-07-2023 End: 71-73-2113Srafeoh of Social functionUnOhio State Health System Work Phone: Start: 28-36-5621Dpd assigned at birthNot on file [facility] Work Phone: Start: 09-27-2023 End: 64-67-8606Jgmojxyq to SARS-CoV-2 (event)Not sureOur Lady of Mercy HospitalStart: 01-29-2023 End: 99-20-7549Atoyafn use and exposureUser of smokeless tobaccoNOMS Healthcare Start: 79-96-0565Uuigddw CommentSmokes 11-20 cigs per dayNOMS HealthcareStart: 33-89-1081Qisxcbc Commentcaffeine intake: occasionalNOMS HealthcareStart: 04-29-2024 End: 05-62-5177IphNxacnj (finding)[facility] Healthcaretart: 07-11-2022 End: 89-59-2751TksVhldsfNolwijfhyaSouthview Medical Center Medical Equipment Procedure CodeEquipment CodeEquipment Original TextEquipment IdentifierDates Start: 17-03-2441Bos Needle, Diabetic (Novofine 32) 32 gauge x 1/4 needleStart: 25-80-0885Ahh Needle, Diabetic (Novofine 32) 32 gauge x 1/4 needleStart: 63-23-5579Cdz Needle, Diabetic (Novofine 32) 32 gauge x 1/4 needleStart: 67-54-8881Lep Needle, Diabetic (Novofine 32) 32 gauge x 1/4 needleStart: 45-01-9005Kxu Needle, Diabetic (Novofine 32) 32 gauge x 1/4 needleStart: 27-06-2876Kix Needle, Diabetic (Novofine 32) 32 gauge x 1/4 needleStart: 47-90-2834Lrp Needle, Diabetic (Novofine 32) 32 gauge x 1/4 needleStart: 86-86-6337Rop Needle, Diabetic (Novofine 32) 32 gauge x 1/4 needleStart: 50-54-4712Eav Needle, Diabetic (Novofine 32) 32 gauge x 1/4 needleStart: 97-40-2695Gyn Needle, Diabetic (Novofine 32) 32 gauge x 1/4 needleStart: 26-71-6890Zxc Needle, Diabetic (Novofine 32) 32 gauge x 1/ needleStart: 08-20-2024 Goals DatePatient GoalDesired Activity/State Functional Status ZflnAiouyjxoxpVbncnbOgjvvkzj76-66-2793Lsenyaucfv statusPatient at Baseline [facility] Work Phone: [phone] statusPatient at Baseline [facility] Work Phone: 1(313) [phone]pddvkgmm statusPatient at Baseline [facility] Work Phone: [phone]) [phone]jqsiauad statusPatient at Baseline [facility] Work Phone: Mental Status XdwqNbacgwmcglKfiwlxDpwwzzfn00-96-1592Vqxudxnwk functionCognitive Status [facility] at [facility] Work Phone: [phone]dhbkhmj functionCognitive Status Patient at [facility] Work Phone: [phone]) [phone] functionCognitive Status Patient at [facility] Work Phone: [phone]) [phone]Vgguwqqcs functionCognitive Status Patient at [facility] Work Phone: Clinical Notes 02-27-2021 to 02-09-2025 Note Date & NrxwUkngWyplpgrd20-91-7342 History of Present illness Narrative* Linwood Irwin [...] NEGATIVE FOR FUNGAL ORGANISMS, ATYPIA, AND MALIGNANCY. [facility] 02/04/2025 0846 Local History of Present Illness Taye presents for follow-up of skin lesions that have been previously biopsied The patient had multiple lesions including a small spot that has resolved with bx, The patient has a follow-up appointment scheduled for the with Dr Best Packing Room Inspector oncology to assess ongoing treatment needs. Visit [...] [facility] - Follow-up appointment scheduled for the with specialist - If specialist recommends continued [...] Gluc Sensor (FreeStyle Brent 14 Day Sensor) [facility], apply 1 SENSOR as directed every14 days [...] Disp: 60 tablet, Rfl: 5 Droplet Pen [place] 32G X 4 MM [facility], use 1 PEN NEEDLE to inject MEDICATION [...] COLPOSCOPY 09/2021 ESOPHAGEAL DILATION HYSTERECTOMY PARTIAL HYSTERECTOMY NC VULVECTOMY SIMPLE PARTIAL 12/[address] [facility] Joaquin [...] 11-20 cigs per day documented in this encounterUniversity HospitalMhrmkulkgw86-17-0116 History of Present illness Narrative* Linwood Irwin [...] previously underwent surgery for pre-cancerous conditions in [facility], including a vulvectomy The patient has [...] Gluc Sensor (FreeStyle Brent 14 Day Sensor) [facility], apply 1 SENSOR as directed every14 days [...] Disp: 60 tablet, Rfl: 5 Droplet Pen [place] 32G X 4 MM [facility], use 1 PEN NEEDLE to inject MEDICATION [...] COLPOSCOPY 09/2021 ESOPHAGEAL DILATION HYSTERECTOMY PARTIAL HYSTERECTOMY NC VULVECTOMY SIMPLE PARTIAL 12/2018 TONSILLECTOMY VULVECTOMY 12/2017 [...] including a bone rect elisabeth performed in [place]. The lesions are described as looking like [...] ordered and scheduled Referral to Dr Cordoba Packing Room Inspector Oncology for recurrent lesion Assessment & Plan documented in this [facility]10-07-[address] [facility] [place] [address] [place] [address] CT Scan Report Signed Patient: Taye Gay MR#: [id number] : 1955 Acct:[id number] Age/Sex: 69 / F ADM Date: 5 Loc: CT Room: Type: [facility] Attending Dr: CHERYL Palacios APRN Copies [...] Jr., D.OKenisha 02/02/2025 12:36 PM Dictation Location: [place] [address] Transcribed By: [facility] 02/02/25 1236 Dictated By: Edgar Segovia Jr, DO 02/02/25 1232 Signed By: 02/02/25 1236 [facility]09-23-2025 History of Present illness Narrative * Oz [...] Priti Dept: Neurology : 1955 Appt Date: 01/19/2025 [...] L2-3 modB L4-5-S1 modB US LE (12/2016, [place]) - atherosclerosis, nl PVR. Testing [facility] (11/2024) - acute L L5-S1 + PN sev . . . . (11/2023) - acute L S1 (nEMG) + PN pattern signif worse . . . . (03/2017, [place] [facility]) - PN pattern Labs - I01=696/15/116/>22.3, was 359/16.7H/328/>22.3 ... A1c=8.4, was 10.4(!) ,,, [...] MR brain (03/2024) - never done during [facility] due to metal . . . [...] Motor - TA 5-L, unchanged: ___, orig: Head Of Drama 4B ... APB 4R 4+L Sens - [...] COLPOSCOPY 09/2021 ESOPHAGEAL DILATION HYSTERECTOMY PARTIAL HYSTERECTOMY NC VULVECTOMY SIMPLE PARTIAL 12/2018 TONSILLECTOMY VULVECTOMY 12/2017 [...] Gluc Sensor (FreeStyle Brent 14 Day Sensor) [facility] apply 1 SENSOR as directed every 14 days use with DEVICE to MONIT... (REFER TO PRESCRIPTION NOTES). cyanocobalamin (Vitamin B-12) 2500 MCG tablet Docusate Sodium (DSS) 100 MG capsule Take 100 mg by mouth in the morning and 100 mg in the evening. donepezil (Aricept) 10 MG tablet 2 tabs QAM 60 tablet 5 Droplet Pen [place] 32G X 4 MM [facility] use 1 PEN NEEDLE to inject MEDICATION [...] Take 40 mg by mouth at bedtime Totello SoloStar 300 UNIT/ML injection inject 20 units subcutaneously as directed No facility-administered encounter medications on file as of 01/19/2025. Oz Kincaid M.D. [facility] ? [address] ? [place], [place] [address] ? ? fax Neurology ? Clinical Neurophysiology ? Epilepsy ? Sleep Disorders ? Clinical Informatics documented in this encounterUniversity HospitalXcxvnfaleh32-89-8777 History of Present illness Narrative* Roland Faust [...] (EXPECT UP TO 20 UNITS/DAY insulin glargine (TOUOK SOLOSTAR- 1 UNIT DIAL) 20 Units magnesium [...] Attestation By signing my name below, I, Edilma Mindy DE LA ROSA , Scribe attest that this documentation has [...] exam, discussion and plan. documented in this encounterOur [facility] of [facility] Work Phone: 1(899) 676-201609-03-2025 Instructions* Patient Instructions* Edilma Menezes LPN - [...] through Care Everywhere. * Heart Healthy Diet ([place]ermudian) * Quitting smoking (Bermudian) documented in this encounterOur Lady of Mercy Hospital Work Phone: 1(157) 326-852608-22-2025 History of Present illness Narrative* Oz Kincaid MD - 12/18/2024 1:15 PM EDT [facility] Patient: Taye Gay [address], [address] , Sex: 1955, Female [place], [place] [address] Height: 168 cm Ref Phys: Debbie Kincaid [...] Doub=doublet; Fasc=fasciculation; FFE=full for effort; Fib=fibrillation; Myokym=myokymia; [place]ville=myotonic potential; N,0=normal; NR=no response; Polyph=polyphasia; Pos=positive [sharp] wave; RFU=rapidly firing units; Serr =serrated potential (2<phases<5); W&W=waxing and waning pattern INTERPRETATION: This study reveals [facility]MG evidence of a chronic, neuropathic, axonal, sensory > motor process affecting all lower extremity nerves tested. Needle examination demonstrates a vzwijw-av-pxoumtgp gradient that is most suggestive of peripheral [...] of any radiculopathy. Oz Kincaid M.D. Diplomate, [place] [employer] of Psychiat[employer] and Neurology (neurology, epilepsy, sleep medicine) Diplomate, [place] Board of Clinical Neurophysiology Diplomate, [place] Board of Preventive Medicine (clinical informatics) . documented in this [facility]08-19-2025 Evaluation note* Diagnosis Onset Date Resolution [...] 2024 1:23pmVitamin B 12 deficiencyacuteSeptember 2024 1:23pm [facility] Work Phone: [phone] 624-567808-19-2025 Evaluation note* Diagnosis Onset Date Resolution Status [...] 2:19pmDepressionacuteSeptember 2024 2:19pm Lesion of spleenacuteSept2024 2:19pm [facility] Work Phone: 1([phone] 947-741908-15-2025 History of Present illness Narrative* Oz Kincaid MD - 12/11/2024 1:15 PM EDT [facility] Patient: Taye Gay [address], [address] , Sex: 1955, Female [place], [place] [address] Height: 168 cm Ref Phys: Debbie Kincaid [...] Doub=doublet; Fasc=fasciculation; FFE=full for effort; Fib=fibrillation; Myokym=myokymia; Granville=myotonic potential; N,0=normal; NR=no response; Polyph=polyphasia; Pos=positive [sharp] [...] -- 36 40 Oz Kincaid M.D. Diplomate, [place] [employer] Psychiatry and Neurology (neurology, epilepsy, sleep medicine) Diplomate, [place] [employer] of Clinical Neurophysiology Diplomate, [place] [employer] of Preventive Medicine (clinical informatics) . documented in this encounterUniversity HospitalVeqbodsbok19-48-5135 History of Present illness Narrative* Karl Fritz, DPM - 11/23/2024 2:45 PM EDT Images [...] if she does decline. documented in this [facility]07-21-2025 History of Present illness Narrative* Karl [...] to their surgery date. documented in this encounterUniversity HospitalLpbrwgonmg45-82-3665 Telephone encounter Note* Telephone Encounter - Cali Duque - 10/21/2024 2:44 PM EDT Patient canceled 10/23/24 EMG on 10/20/24 due to an appointment conflict. University HospitalMbuuyalyqc25-22-3737 Miscellaneous Notes* Telephone Encounter - Cali Duque - 10/21/2024 2:44 PM EDT Patient canceled 10/23/24 EMG on 10/20/24 due to an appointment conflict. documented in this encounterUniversity HospitalOvgbcfcxhe81-27-3304 History of Present illness Narrative* Karl Fritz [...] with ulceration and/or pain. documented in this [facility]06-11-2025 Telephone encounter Note* Telephone Encounter - Cali Laneshreyas - 10/07/2024 3:49 PM EDT Received call from [facility] with [facility] they are happy to take her as a client. [facility] Kicuvtfiuz64-72-1656 Miscellaneous Notes* Telephone Encounter - Cali Laneshreyas - 10/07/2024 3:49 PM EDT Received call from R[place] with [facility] they are happy to take her as a client. documented in this [facility]06-10-2025 History of Present illness Narrative* Oz [...] were not included. Outpatient Progress Note Patient: Tyae Hollyaton Dept: Neurology : 1955 Appt Date: [...] 6 weeks (around 11/17/2024), or 6-8 w SATURATION EQUIPMENT OPERATOR; after ENMGs. History of Present Illness, [...] fingertips; restlessness; gait ataxia. Imaging MR Yao-s (11/2023, [facility]) - HNP T12-L1 mild ... canal sten L2-3 mod ... errol sten L2-3 modB L4-5-S1 modB US LE (12/2016, [facility]) - atherosclerosis, nl PVR. Testing [facility] (11/2023) - acute L S1 (nEMG) + PN pattern signif worse . . . . (03/2017, [facility]) - PN pattern Labs - J50=131/15/116/>22.3, was 359/16.7H/328/>22.3 ... A1c=8.4, was 10.4(!) ,,, [...] ___, unchanged: ___, orig: ___ Motor - Head Of Drama 4-R 4L ... APB 4B ... LEs - 4+ throughout (worse), somewhat antalgic, unchanged: ___, orig: Head Of Drama 4B ... APB 4R 4+L Sens - [...] COLPOSCOPY 09/2021 ESOPHAGEAL DILATION HYSTERECTOMY PARTIAL HYSTERECTOMY NC VULVECTOMY SIMPLE PARTIAL 12/2018 TONSILLECTOMY VULVECTOMY 12/2017 [...] Take with meals. Continuous Blood Gluc Sensor (SoFiStyle Brent 14 Day Sensor) [facility] apply 1 SENSOR as directed every 14 days use with DEVICE to MONIT... (REFER TO PRESCRIPTION NOTES). cyanocobalamin (Vitamin B-12) 2500 MCG tablet Docusate Sodium (DSS) 100 MG capsule Take 100 mg by mouth in the morning and 100 mg in the evening. donepezil (Aricept) 10 MG tablet 2 tabs QAM 60 tablet 5 Droplet Pen [place] 32G X 4 MM [facility] use 1 PEN NEEDLE to inject MEDICATION [...] Oz Kincaid M.D. [facility] ? [address] ? [place], [place] [address] ? ? fax Neurology ? Clinical Neurophysiology ? Epilepsy ? Sleep Disorders ? Clinical Informatics documented in this [facility]06-05-[facility] Evaluation note* Diagnosis Onset Date Resolution Status Admit Date Atrial fibrillation acuteJune 2024 2:34pmCardiomyopathyacuteJune 2024 2:34pmCongestive heart failureacuteJune 2024 2:34pmDaytime sleepinessacuteJune 2024 2:34pmHypertensionacuteJune 2024 2:34pmHypothyroidacuteJune 2024 2:34pmIntolerance to BiPAP/CPAPacuteJune 2024 2:34pmMajor depression, chronicacuteJune 2024 2:34pmOSA (obstructive sleep apnea)acuteJune 2024 2:34pmSecondary polycythemiaacuteJune 2024 2:34pmAllergy to honey bee venomacuteAugust 2024 1:46pmDepressionacuteAugust 2024 1:46pm [facility] Work Phone: 1([phone] 301-161406-05-2025 Evaluation note* Diagnosis Onset Date Resolution Status [...] 2024 1:46pm Wound of footacuteAugust 2024 1:46pm [facility] Work Phone: 1(518) 624-798905-15-2025 [place] [address] EGD Procedure Note Signed Patient: Taye Gay MR#: [id number] : 1955 Acct:[id number] Age/Sex: 68 / F Adm Date: 5 Loc: Room: Type: [facility] Attending Dr: Manjit Gleason MD Copies to: Sandra Keita, DO Manjit Gleason MD~ Esophagogastroduodenoscopy Date/Provider Date: 09/10/2024 Mnajit Gleason MD Procedure Findings: Procedure: EGD with [...] MD 09/10/24 1241 Signed By: 09/10/24 1245 [facility]05-15-2025 [place] [address] Gastroenterology H&P Signed Patient: Taye Gay MR#: [id number] : 1955 Acct:[id number] Age/Sex: 68 / F Adm Date: 5 Loc: Room: Type: [facility] Attending Dr: Manjit Gleason MD Copies to: [...] MD 09/10/24 1233 Signed By: 09/10/24 1241 [facility]04-29-2025 Chief complaint+Reason for visit Narrative* Chief [...] Secondary polycythemia October 01, 2024 2: 34pm [facility] Work Phone: 1([phone]) 367-895204-24-2025 Evaluation note* Diagnosis Onset Date Resolution Status [...] 2024 2:34pmCongestive heart failureacuteJun2024 2:34pm Daytime sleepinessacuteJun2024 2:34pmHypertensionacuteJun2024 2:34pmHypothyroidacuteJune 2024 2:34pmIntolerance to BiPAP/CPAPacuteJun2024 2:34pmMajor depression, chronicacuteJun2024 2:34pmOSA (obstructive sleep apnea)acuteJun2024 2:34pmSecondary polycythemiaacute October 01, 2024 2:34pm [facility] Work Phone: 1(729) 323-450903-26-2025 Evaluation note* Diagnosis Onset Date Resolution Status Admit Date Cigarette nicotine dependence acuteMarch 2024 10:54amCurrent every day smokeracuteMarch 2024 10:54amPAD (peripheral artery disease)acuteMarch 2024 10:54amBMI 32.0-32.9,adultacuteApril 2024 9:57amChronic kidney disease (CKD) stage G2/A2, mildly decreased glomerular filtracuteApril 2024 9:57amDietary counseling and surveillanceacuteApril 2024 9:57amHyperlipidemiaacuteApril 2024 9:57amHypertensionacuteApril 2024 9:57amPeripheral neuropathy acuteApril 2024 9:57amType 2 diabetes mellitusacuteApril 2024 9:57am Vitamin B 12 deficiencyacuteApril 2024 9:57am [facility] Work Phone: 1([phone]) 594-106603-26-2025 Evaluation note* Diagnosis Onset Date Resolution Status [...] artery disease)acuteApril 2024 1:31pmPeripheral neuropathyacuteApril 2024 1:31pm [facility] Work Phone: 1(671) 521-485303-26-2025 Evaluation note* Diagnosis Onset Date Resolution Status [...] 2024 1:31pmLumbar spondylosisacute September 07, 2024 11:01am [facility] Work Phone: 1([phone]) 396-833203-26-2025 Evaluation note* Diagnosis Onset Date Resolution Status Admit Date Cigarette nicotine dependence acuteMarch 2024 10:54amCurrent every day smokeracuteMarch 2024 10:54amPAD (peripheral artery disease)acuteMarch 2024 10:54amBMI 32.0-32.9,adultacuteApril 2024 9:57amChronic kidney disease (CKD) stage G2/A2, mildly decreased glomerular filtracuteApril 2024 9:57amDietary counseling and surveillanceacuteApril 2024 9:57amHyperlipidemiaacuteApril 2024 9:57amHypertensionacuteApril 2024 9:57amPeripheral neuropathy acuteApril 2024 9:57amType 2 diabetes mellitusacuteApril 2024 9:57am Vitamin B 12 deficiencyacuteApr2024 9:57amCigarette nicotine dependence acuteApril 2024 1:31pmDysphagia, unspecifiedacuteApril 2024 1:31pm Lesion of skin of cheekacuteApril 2024 1:31pmMajor depression, chronic acuteApril 2024 1:31pmPAD (peripheral artery disease)acuteApril 2024 1:31pmPeripheral neuropathyacuteApril 2024 1:31pmLumbar spondylosisacute September 07, 2024 11:01amAtrial fibrillationacuteJune 2024 2:34pm CardiomyopathyacuteJune 2024 2:34pmCongestive heart failureacuteJune 2024 2:34pmHypertensionacuteJune 2024 2:34pmHypothyroidacuteJune 2024 2:34pmIntolerance to BiPAP/CPAPacuteJun2024 2:34pmMajor depression, chronicacuteJune 2024 2:34pmOSA (obstructive sleep apnea)acuteJune 2024 2:34pmSecondary polycythemiaacuteJune 2024 2:34pm [facility] Work Phone: 1(547) 689-463003-25-2025 History of Present illness Narrative* Oz Kincaid MD - 07/21/2024 2:45 PM EDTAssociated Problem(s): Cognitive decline (Continue current regimen.) [facility] records [...] & Plan Cognitive decline (Continue current regimen.) [facility] records [...] restlessness; gait ataxia. Imaging MR Keller (11/2023, [facility]) - HNP T12-L1 mild; canal sten L2-3 mod; errol sten L2-3 modB L4-5-S1 modB US LE (12/2016, [place]) - atherosclerosis, nl PVR. Testing [facility] (11/2023) - acute L S1 (nEMG) + PN pattern signif worse . . . . (03/2017, [place]) - PN pattern Labs - D15=115/15/116/>22.3, was 359/16.7H/328/>22.3 ... A1c=8.4, was 10.4(!) ,,, [...] pt is off nortrip. Adm [facility] ~XAVIER for possible TIA. Walking drunk , Tim. 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 Imaging MR brain (10/2023, [facility]) - not available via [facility] - atrophy age- appropriate & ^T2/FLAIR Testing [...] ___, orig: ___ Motor - ___, unchanged: Head Of Drama 4B ... APB 4R 4+L, orig: ___ [...] smear of cervix hpv positive COVID-19 Diabetes ([facility]/HCC) Fibromyalgia High cholesterol ([facility]) History of medical problems ulcer HTN (hypertension) (CMS/HCC) Neuropathy Rheumatoid arthritis (CMS/HCC) Scarlet fever Stomach ulcer Tonsillitis Past Surgical History: Procedure Laterality Date BIOPSY 04/2020 vulvar CARPAL TUNNEL RELEASE Right 2018 COLPOSCOPY 01/21/2017 COLPOSCOPY 09/2018 COLPOSCOPY 10/2019 COLPOSCOPY 09/2021 ESOPHAGEAL DILATION HYSTERECTOMY PARTIAL HYSTERECTOMY NC VULVECTOMY SIMPLE PARTIAL 12/2018 TONSILLECTOMY VULVECTOMY 12/2017 [...] Take with meals. Continuous Blood Gluc Sensor ([employer] Brent 14 Day Sensor) [facility] apply 1 SENSOR as directed every 14 days use with DEVICE to MONIT... (REFER TO PRESCRIPTION NOTES). cyanocobalamin (Vitamin B-12) 2500 MCG tablet Docusate Sodium (DSS) 100 MG capsule Take 100 mg by mouth in the morning and 100 mg in the evening. donepezil (Aricept) 10 MG tablet Up to 2 QAM if tolerated 60 tablet 3 Droplet Pen [place] 32G X 4 MM [facility] use 1 PEN NEEDLE to inject MEDICATION [...] M.D. [facility] ? [address] [facility] [address] ? [place] [id number] ? ? fax Neurology ? Clinical Neurophysiology ? Epilepsy ? Sleep Disorders ? Clinical Informatics documented in this encounterUniversity HospitalZhanfadhze40-67-8125 History of Present illness Narrative* Roland Faust [...] my name below, Melina Bardales LPN , Scrjorge attest that this documentation has been prepared [...] exam, discussion and plan. documented in this [facility] Work Phone: 1(989) 403-766202-28-2025 Instructions* Patient Instructions* Melina Lee LPN - [...] 6 months with ekg documented in this encounterOur [facility] of [facility]cy Hospital Work Phone: 1(148) 927-917701-21-2025 Telephone encounter Note* Telephone Encounter - Cali Duque - 05/19/2024 11:20 AM EST Daughter same day canceled same day canceled today's appointment due to overslept. RS for 06/02/24 [facility] Vgtrerajms50-25-2344 Miscellaneous Notes* Telephone Encounter - Cali Duque - 05/19/2024 11:20 AM EST Daughter same day canceled same day canceled today's appointment due to overslept. RS for 06/02/24 documented in this encounterUniversity HospitalKnfmvnkfep42-75-6012 [place] [address] Neurology Progress Note Signed with Jamila Patient: Taye Gay MR#: [id number] : 1955 Acct:[id number] Age/Sex: 68 / F Adm Date: 4 Loc: 3T Room: [address] [place] [address] Type: ADM IN Attending Dr: Priscilla Lang MD Copies to: ~ ADDENDUM1 Patient has refused to remove her nail spanish for MRI. Unable to confirm whether or [...] may be metabolic in nature and not freight representative necessarily of transient ischemia or of [...] DO 5 0608 Signed By: 04/30/24 0708 [facility]01-02-2025 Discharge summary Author Priscilla Lang [facility] HospitalNote Date/TimeJanuary 2024 10:28am [place] [address] Discharge Summary Signed Patient: Taye Gay MR#: [id number] : 1955 Acct:[id number] Age/Sex: 68 / F Adm Date: 4 Loc: 3T Room: [address] [place] [address]: Priscilla Lang MD Copies to: [...] taking multiple medications that could potentially cause CRNA side effect and toxic encephalopathy. Diagnosis is [...] polypharmacy regimen to reduce her risk of CRNA side effects or drug?drug interaction.At this time, [...] ask her primary care doctor to obtain [facility] record entirely to address abnormalities [...] constipation) (DME) pen needle, diabetic [Sure-Fine Pen [place]] .Route lidocaine 5 % ointment 1 applic [...] % (Auto) 63.5, Lymph % (Auto) 24.9, Giles % (Auto) 8.3, Eos % (Auto) 2.9, Baso % (Auto) 0.4, Nucleat RBC Rel Count 0.0, Neut # (Auto) 4.6, Lymph # (Auto) 1.8, Giles # (Auto) 0.6, Eos # (Auto) 0.2, [...] <Electronically signed by Priscilla Lang MD> 04/30/24 102 [facility] Work Phone: 1(177) 270-205401-02-[address] [address] Discharge Summary Signed Patient: Taye Gay MR#: [id number] : 1955 Acct:[id number] Age/Sex: 68 / F Adm Date: 4 Loc: 3T Room: [address] [place] [address]: Priscilla Lang MD Copies to: [...] taking multiple medications that could potentially cause CRNA side effect and toxic encephalopathy. Diagnosis is [...] polypharmacy regimen to reduce her risk of CRNA side effects or drug?drug interaction.At this time, [...] ask her primary care doctor to obtain [facility] record entirely to address abnormalities [...] constipation) (DME) pen needle, diabetic [Sure-Fine Pen [place]] .Route lidocaine 5 % ointment 1 applic [...] % (Auto) 63.5, Lymph % (Auto) 24.9, Giles % (Auto) 8.3, Eos % (Auto) 2.9, Baso % (Auto) 0.4, Nucleat RBC Rel Count 0.0, Neut # (Auto) 4.6, Lymph # (Auto) 1.8, Giles # (Auto) 0.6, Eos # (Auto) 0.2, [...] Lang MD 04/30/24 1016 Signed By: 04/30/[address] [place], [place] 2463501-01-2025 Consult note Author Lit Clark [facility] Date/TimeJanuary 2024 11:07am [place] [address] Neurology Consult Note Signed Patient: Taye Gay MR#: [id number] : 1955 Acct:[id number] Age/Sex: 68 / F Adm Date: 4 Loc: Room: [address] [place] [address] Type: ADM IN Attending Dr: Priscilla Lang MD Copies to: DO Sandra Garrido DO Rafik Massouh, MD~ HPI Consult Date: 04/29/24 Instant Potato Processor: Lit Clark DO Reason for consult: Slurred [...] unless noted below or in HPI [facility] Medical History BMI 32.0-32.9,adult Abnormal thyroid blood [...] History Father Heart disease History of stroke [facility] Problem: Diagnosed with Stroke Cancer [...] (Stool Softener) 100 mg PO DAILY PRN wlujzewkjwpo92/14/24 [History Confirmed 04/28/24] multivitamin 1 tab PO DAILY 06/12/23 [History Confirmed 04/28/24] pen needle, diabetic [Sure-Fine Pen [place]] 06/12/23 [History Confirmed 04/28/24] metformin 500 mg [...] Oz Bowling M.D.04/28/2024 9:46 PM Dictation Location: [place] [address] 04/28/24 19:44 IMPRESSION: No acute intracranial pathology. No evidence of focal stenosis, aneurysmal dilatation, dissection or occlusion. Impression dictated by: Oz Bowling M.D.04/28/2024 9:44 PM Dictation Location: [place] [address] Assessment/Plan (1) Atrial fibrillation: Qualifiers: Atrial fibrillation [...] may be metabolic in nature and not freight representative necessarily of transient ischemia or of [...] <Electronically signed by Lit Clark DO> 04/29/24 1752 [facility] Work Phone: 1(447) 313-303101-01-2025 Progress note Author Priscilla Lang [facility] Date/TimeJanuary 2024 11:02am [place] [address] Hospitalist Progress Note Signed Patient: Taye Gay MR#: [id number] : 1955 Acct:[id number] Age/Sex: 68 / F Adm Date: 4 Loc: Room: [address] [place] [address] Type: ADM IN Attending Dr: Priscilla Lang [...] of dementia, possible Alzheimer's dementia -continue home [id number] mg twice daily and donepezil 20 mg [...] Tablet PO 04/29/25 08:59 5 mg BID PARIS Administration Aspirin 81 mg 04/29/24 09:00 04/29/24 08:02 Aspirin 81 Mg Tablet.Dr MINOR 04/29/25 08:59 81 mg DAILY [place] Administration Atorvastatin Calcium 80 mg 04/28/24 22:45 04/28/24 23:58 Atorvastatin 80 Mg Tablet PO 04/28/25 22:44 80 mg QPM [place] Administration Carvedilol 12.5 mg 04/29/24 09:00 04/29/24 08:02 Carvedilol 12.5 Mg Tablet PO 04/29/25 08:59 12.5 mg BID [place] Administration Cyanocobalamin 1,000 mcg 04/29/24 09:00 04/29/24 08:02 Cyanocobalamin 1,000 Mcg Tablet PO 04/29/25 08:59 1,000 mcg DAILY [place]IS Administration Cyclobenzaprine HCl 10 mg 04/29/24 03:51 Cyclobenzaprine 10 Mg Tablet PO 04/29/25 03:50 HS PRN muscle spasm Dapagliflozin 10 mg 04/29/24 09:00 04/29/24 08:02 Dapagliflozin 10 Mg Tablet PO 04/29/25 08:59 10 mg DAILY [place]IS Administration Dextrose 0 gm 04/29/24 05:23 Dextrose 50% In Water 25 Gm/50 Ml Syringe IV-PUSH 04/29/25 05:22 PRN PRN Hypoglycemia Docusate Sodium 100 mg 04/29/24 03:51 Docusate 100 Mg Capsule PO 04/29/25 03:50 DAILY PRN constipation Donepezil HCl 20 mg 04/29/24 09:00 04/29/24 08:02 Donepezil 10 Mg Tablet PO 04/29/25 08:59 20 mg DAILY PARIS Administration Folic Acid 1 mg 04/29/24 09:00 04/29/24 08:02 Folic Acid 1 Mg Tablet PO 04/29/25 08:59 1 mg DAILY PARIS Administration Glucose 0 gm 04/29/24 05:23 Dextrose 40% Gel 15 Gm Tube PO 04/29/25 05:22 PRN PRN Hypoglycemia Insulin Aspart 0 units 04/29/24 08:00 04/29/24 08:33 Insulin Aspart 300 Units/3 Ml SUBCUT 04/29/25 07:59 3 units TID.WM.HS PARIS Administration Protocol Insulin Glargine 18 units 04/29/24 09:00 04/29/24 08:33 Insulin Glargine 300 Units/3 Ml Insuln.Pen SUBCUT 04/29/25 08:59 18 units DAILY [place] Administration Lidocaine 1 applic 04/29/24 03:51 Lidocaine 5% Oint 35 Gm Tube TOPICAL 04/29/25 03:50 DAILY PRN pain Memantine 10 mg 04/29/24 09:00 04/29/24 08:02 Memantine 10 Mg Tablet PO 04/29/25 08:59 10 mg BID PARIS Administration Multivitamins 1 tab 04/29/24 09:00 04/29/24 08:02 Multivitamin 1 Tab Tablet PO 04/29/25 08:59 1 tab DAILY [place]IS Administration Pom Ozempic ( 2 mg 04/29/24 09:00 Semaglutide) 2 Mg/ SUBCUT 04/29/25 08:59 Dose (8 Mg/3 Ml) Pen QWEEK [place] Injector) Pantoprazole Sodium 40 mg 04/29/24 09:00 04/29/24 08:02 Pantoprazole 40 Mg Tablet.Dr MINOR 04/29/25 08:59 40 mg DAILY [place] Administration Sodium Chloride 0 ml 04/28/24 19:32 [...] providers. Documented By: Priscilla Lang MD 04/29/24 1051 Signed By: <Electronically signed by Priscilla Lang MD> 04/29/24 0041 [facility] Work Phone: 1(838) 246-108401-01-2025 [place] [address] Neurology Consult Note Signed Patient: Taye Gay MR#: [id number] : 1955 Acct:[id number] Age/Sex: 68 / F Adm Date: 4 Loc: Room: [address] [place] [address] Type: ADM IN Attending Dr: Priscilla Lang MD Copies to: DO Sandra Garrido DO Rafik Massouh, MD~ HPI Consult Date: 04/29/24 Instant Potato Processor: Lit Clark DO Reason for consult: Slurred [...] unless noted below or in HPI PMFSH Medical History BMI 32.0-32.9,adult Abnormal thyroid [...] (Stool Softener) 100 mg PO DAILY PRN rzqnbziarqly51/14/24 [History Confirmed 04/28/24] multivitamin 1 tab PO DAILY 06/12/23 [History Confirmed 04/28/24] pen needle, diabetic [Sure-Fine Pen [place]] 06/12/23 [History Confirmed 04/28/24] metformin 500 mg [...] 9:46 PM Dictation Location: [facility]- Head CT 04/28/24 19:44 IMPRESSION: No acute [...] may be metabolic in nature and not freight representative necessarily of transient ischemia or of [...] DO 5 0858 Signed By: 04/29/24 1107 [facility] [address] Hospitalist Progress Note Signed Patient: Taye Gay MR#: [id number] : 1955 Acct:[id number] Age/Sex: 68 / F Adm Date: 4 Loc: 3T Room: [id number] Type: ADM IN Attending Dr: Priscilla Lang [...] presence of WBCs, RBCs and rare yeast. Evyhajaqueline provided 3 to24 mg of aspirin x [...] of dementia, possible Alzheimer's dementia -continue home [id number] mg twice daily and donepezil 20 mg [...] Tablet PO 04/29/25 08:59 5 mg BID PARIS Administration Aspirin 81 mg 04/29/24 09:00 04/29/24 08:02 Aspirin 81 Mg Tablet.Dr PO 04/29/25 08:59 81 mg DAILY PARIS Administration Atorvastatin Calcium 80 mg 04/28/24 22:45 04/28/24 23:58 Atorvastatin 80 Mg Tablet PO 04/28/25 22:44 80 mg QPM [place]IS Administration Carvedilol 12.5 mg 04/29/24 09:00 04/29/24 08:02 Carvedilol 12.5 Mg Tablet PO 04/29/25 08:59 12.5 mg BID PARIS Administration Cyanocobalamin 1,000 mcg 04/29/24 09:00 04/29/24 08:02 Cyanocobalamin 1,000 Mcg Tablet PO 04/29/25 08:59 1,000 mcg DAILY PARIS Administration Cyclobenzaprine HCl 10 mg 04/29/24 03:51 Cyclobenzaprine 10 Mg Tablet PO 04/29/25 03:50 HS PRN muscle spasm Dapagliflozin 10 mg 04/29/24 09:00 04/29/24 08:02 Dapagliflozin 10 Mg Tablet PO 04/29/25 08:59 10 mg DAILY [place]IS Administration Dextrose 0 gm 04/29/24 05:23 Dextrose 50% In Water 25 Gm/50 Ml Syringe IV-PUSH 04/29/25 05:22 PRN PRN Hypoglycemia Docusate Sodium 100 mg 04/29/24 03:51 Docusate 100 Mg Capsule PO 04/29/25 03:50 DAILY PRN constipation Donepezil HCl 20 mg 04/29/24 09:00 04/29/24 08:02 Donepezil 10 Mg Tablet PO 04/29/25 08:59 20 mg DAILY [place]IS Administration Folic Acid 1 mg 04/29/24 09:00 04/29/24 08:02 Folic Acid 1 Mg Tablet PO 04/29/25 08:59 1 mg DAILY PARIS Administration Glucose 0 gm 04/29/24 05:23 Dextrose 40% Gel 15 Gm Tube PO 04/29/25 05:22 PRN PRN Hypoglycemia Insulin Aspart 0 units 04/29/24 08:00 04/29/24 08:33 Insulin Aspart 300 Units/3 Ml SUBCUT 04/29/25 07:59 3 units TID.WM.HS [place] Administration Protocol Insulin Glargine 18 units 04/29/24 09:00 04/29/24 08:33 Insulin Glargine 300 Units/3 Ml Insuln.Pen SUBCUT 04/29/25 08:59 18 units DAILY [place]IS Administration Lidocaine 1 applic 04/29/24 03:51 Lidocaine 5% Oint 35 Gm Tube TOPICAL 04/29/25 03:50 DAILY PRN pain Memantine 10 mg 04/29/24 09:00 04/29/24 08:02 Memantine 10 Mg Tablet PO 04/29/25 08:59 10 mg BID PARIS Administration Multivitamins 1 tab 04/29/24 09:00 04/29/24 08:02 Multivitamin 1 Tab Tablet PO 04/29/25 08:59 1 tab DAILY PARIS Administration Pom Ozempic ( 2 mg 04/29/24 09:00 Semaglutide) 2 Mg/ SUBCUT 04/29/25 08:59 Dose (8 Mg/3 Ml) Pen QWEEK [place]IS Injector) Pantoprazole Sodium 40 mg 04/29/24 09:00 04/29/24 08:02 Pantoprazole 40 Mg Tablet.Dr PO 04/29/25 08:59 40 mg DAILY PARIS Administration Sodium Chloride 0 ml 04/28/24 19:32 [...] MD 04/29/24 1059 Signed By: 04/29/24 1102 [facility]01-01-[facility]25 History and physical note Author Jori Hearn [facility] Date/TimeJanuary 2024 6:39[place] [address] Hospitalist H&P Signed Patient: Taye Gay MR#: [id number] : 1955 Acct:[id number] Age/Sex: 68 / F Adm Date: 4 Loc: 3T Room: [address] [place] [address] Type: ADM IN Attending Dr: Jori Hearn [...] of dementia, possible Alzheimer's dementia -continue home owmuekzcm55 mg twice daily and donepezil 20 mg daily 12. Atrial fibrillation - continue Eliquis 5 mg twice daily for anticoagulationand carvedilol 12.5 mg twice daily. EKG in ER shows NSR 13. Hypoxia - no respiratory distress or cardiopulmonary complaints to accompany this. Will monitortelemetry and address as needed [facility] Medical History BMI 32.0-32.9,adult Abnormal thyroid blood [...] (Stool Softener) 100 mg PO DAILY PRN friszzgfqzdh88/14/24 [History Confirmed 04/28/24] multivitamin 1 tab PO DAILY 06/12/23 [History Confirmed 04/28/24] pen needle, diabetic [Sure-Fine Pen [place]] 06/12/23 [History Confirmed 04/28/24] metformin 500 mg [...] % (Auto) 24.6 % (.) 04/28/24 19:54 Giles % (Auto) 7.6 % (.) 04/28/24 19:54 Eos % (Auto) 2.7 % (.) 04/28/24 19:54 Baso % (Auto) 1.1 % (.) 04/28/24 19:54 Nucleat RBC Rel Count 0.2 /100 WBC (0-0.5) 04/28/24 19:54 Neut # (Auto) 6.5 x10E3/uL (1.8-7.7) 04/28/24 19:54 Lymph # (Auto) 2.5 x10E3/uL (1.00-4.8) 04/28/24 19:54 Giles # (Auto) 0.8 x10E3/uL (0.0-0.8) 04/28/24 19:54 [...] pH 5.5 (5.0-9.0) 04/28/24 22:02 Ur Specific [place] 1.038 (1.001-1.030) H 04/28/24 22:02 Urine Protein Negative mg/dL (Negative) 04/28/24 22:02 Urine Glucose (UA) >=1000 mg/dL (Normal) H 04/28/24 22:02 Urine Ketones Negative (Negative) 04/28/24 22: Urine Occult Blood 2+ (Negative) H 04/28/24 22: Urine Nitrite Negative (Negative) 04/28/24 22:02 Urine Bilirubin Negative (Negative) 04/28/24 22:02 Urine Urobilinogen Normal mg/dL (Normal) 04/28/24 22: Ur Leukocyte Esterase Negative (Negative) 04/28/24 22:02 [...] <Electronically signed by Jori Hearn DO> 04/29/24 39 [facility] Work Phone: 1(150) 325-144401-01-2025 [place] [address] Hospitalist H&P Signed Patient: Taye Gay MR#: [id number] : 1955 Acct:[id number] Age/Sex: 68 / F Adm Date: 4 Loc: Room: [address] [place] [address] Type: ADM IN Attending Dr: Jori Hearn [...] RBCs and rare yeast. Gisella provided 3 to24 mg of aspirin x [...] of dementia, possible Alzheimer's dementia -continue home pyajualcm82 mg twice daily and donepezil 20 mg daily 12. Atrial fibrillation - continue Eliquis 5 mg twice daily for anticoagulationand carvedilol 12.5 mg twice daily. EKG in ER shows NSR 13. Hypoxia - no respiratory distress or cardiopulmonary complaints to accompany this. Will monitortelemetry and address as needed [facility] Medical History BMI 32.0-32.9,adult Abnormal thyroid blood [...] (Stool Softener) 100 mg PO DAILY PRN xhjyizebllds80/14/24 [History Confirmed 04/28/24] multivitamin 1 tab PO DAILY 06/12/23 [History Confirmed 04/28/24] pen needle, diabetic [Sure-Fine Pen [place]] 06/12/23 [History Confirmed 04/28/24] metformin 500 mg [...] % (Auto) 24.6 % (.) 04/28/24 19:54 Giles % (Auto) 7.6 % (.) 04/28/24 19:54 Eos % (Auto) 2.7 % (.) 04/28/24 19:54 Baso % (Auto) 1.1 % (.) 04/28/24 19:54 Nucleat RBC Rel Count 0.2 /100 WBC (0-0.5) 04/28/24 19:54 Neut # (Auto) 6.5 x10E3/uL (1.8-7.7) 04/28/24 19:54 Lymph # (Auto) 2.5 x10E3/uL (1.00-4.8) 04/28/24 19:54 Giles # (Auto) 0.8 x10E3/uL (0.0-0.8) 04/28/24 19:54 [...] pH 5.5 (5.0-9.0) 04/28/24 22:02 Ur Specific [place] 1.038 (1.001-1.030) H 04/28/24 22:02 Urine Protein [...] DO 04/28/24 59 Signed By: 04/29/24 0639 [facility]12-31-[facility]24 Radiology Diagnostic study note [facility] Main [place] [address] [place] [address] CT Scan Report Signed Patient: Taye Gay MR#: [id number] : 1955 Acct:[id number] Age/Sex: 68 / F ADM Date: 4 Loc: ER Room: Type: [facility] ER Attending Dr: Copies to: Wesley Villafuerte PA-C~ Ordering Provider: Wesley Villafuerte PA-C Date of Service: 04/28/24 CT/CT angio head: weakness ([id number]) CT/CT angio neck: weakness ([id number]) CT/CT head/brain wo con: weakness CT head/brain [...] Oz Bowling M.D.04/28/2024 9:44 PM Dictation Location: [place] [address] Transcribed By: AMY 04/28/242143 Dictated By: Oz Bowling II, MD 04/28/242129 Signed By: 04/28/242143 [facility] Work Phone: 1(841) 288-547612-31-2024 Evaluation note* Diagnosis Onset Date Resolution Status Admit Date High granulocyte count acuteDecember 2023 9:53amSecondary polycythemiaacuteDecember 2023 9:53amBMI 32.0-32.9,adultacuteDecember 2023 11:14amChronic kidney disease (CKD) stage G2/A2, mildly decreased glomerular filtracuteDecember 2023 11:14amDietary counseling and surveillanceacutecember 2023 11:14am HyperlipidemiaacuteDecember 2023 11:14amHypertensionacuteDecember 2023 11:14amPeripheral neuropathyacutecember 2023 11:14amType 2 diabetes mellitusacutece2023 11:14amVitamin B 12 deficiencyacutecemb2023 11:14amAtrial fibrillationacute2023 10:38pmGeneralized weaknessacuteceer 2023 10:38pmInsulin dependent diabetes mellitusacute April 28, 2024 10:38pmTIA (transient ischemic attack)acuteApril 28, 2024 10:38pmCigarette nicotine dependenceacuteJanuary 2024 1:02pmDisordered sleepacuteJanuary 2024 1:02pmHypotensionacuteJanuary 2024 1:02pmStool incontinenceacuteJanuary 2024 1:02pmTIA (transient ischemic attack)acute May 07, 2024 1:02pm [facility] Work Phone: 1(934) 638-638512-31-2024 Evaluation note* Diagnosis Onset Date Resolution Status Admit Date High granulocyte count acutece2023 9:53amSecondary polycythemiaacuteDecember 2023 9:53amBMI 32.0-32.9,adultacuteDecember 2023 11:14amChronic kidney disease (CKD) stage G2/A2, mildly decreased glomerular filtracuteDecember 2023 11:14amDietary counseling and surveillanceacutemb2023 11:14am HyperlipidemiaacuteDecember 2023 11:14amHypertensionacuteDecember 2023 11:14amPeripheral neuropathyacutecember [...] 2024 10:54amPAD (peripheral artery disease)acuteMarch 2024 10:54am [facility] Work Phone: 1(384) 218-137212-17-2024 Evaluation note* Diagnosis Onset Date Resolution Status Admit Date High granulocyte count acuteDece2023 9:30amSecondary polycythemiaacutece2023 9:30amBMI 32.0-32.9,adultacuteDecember 2023 11:14amChronic kidney disease (CKD) stage G2/A2, mildly decreased glomerular filtracuteDecember 2023 11:14amDietary counseling and surveillanceacuteApril 28, 2024 11:14am HyperlipidemiaacuteDecember 2023 11:14amHypertensionacuteDecember 2023 11:14amPeripheral neuropathyacutecember 2023 11:14amType 2 diabetes mellitusacutecember 2023 11:14amVitamin B 12 deficiencyacuteDecember 2023 11:14amTIA (transient ischemic attack)acutecemb2023 10:38pm [facility] Work Phone: 1(396) 410-235312-17-2024 Evaluation note* Diagnosis Onset Date Resolution Status Admit Date High granulocyte count acuteDecember 2023 9:30amSecondary polycythemiaacutecember 2023 9:30amBMI 32.0-32.9,adultacuteDecember 2023 11:14amChronic kidney disease (CKD) stage G2/A2, mildly decreased glomerular filtracuteDecember 2023 11:14amDietary counseling and surveillanceacutecember 2023 11:14am Hyperlipidemiaacutecember 2023 11:14amHypertensionacutecember 2023 11:14amPeripheral neuropathyacute2023 11:14amType 2 diabetes mellitusacutece2023 11:14amVitamin B 12 deficiencyacutecemb2023 11:14amAtrial fibrillationacuteApril 28, 2024 10:38pmGeneralized weaknessacutece2023 10:38pmInsulin dependent diabetes mellitusacute April 28, 2024 10:38pmTIA (transient ischemic attack)acutece2023 10:38pm [facility] Work Phone: 1(968) 485-162912-17-2024 Evaluation note* Diagnosis Onset Date Resolution Status Admit Date High granulocyte count acuteDecember 2023 9:30amSecondary polycythemiaacuteDecember 2023 9:30amHigh granulocyte countacutecember 2023 9:53amSecondary polycythemiaacuteDecember 2023 9:53amBMI 32.0-32.9,adultacuteDecember 2023 11:14amChronic kidney disease (CKD) stage G2/A2, mildly decreased glomerular filtracuteDecember 2023 11:14amDietary counseling and surveillanceacutecember 2023 11:14amHyperlipidemiaacuteDecember 2023 11:14amHypertensionacuteDecember 2023 11:14amPeripheral neuropathy acuteDecember 2023 11:14amType 2 diabetes mellitusacuteDecember 2023 11:14amVitamin B 12 deficiencyacutecember 2023 11:14amAtrial fibrillationacuteDecember 2023 10:38pmGeneralized weaknessacuteDecember 2023 10:38pmInsulin dependent diabetes mellitusacutecember 2023 10:38pmTIA (transient ischemic attack)acutecember 2023 10:38pmCigarette nicotine dependenceacuteJanuary 2024 1:02pm [facility] Work Phone: 1(793) 561-658012-17-2024 Evaluation note* Diagnosis Onset Date Resolution Status Admit Date High granulocyte count acuteDecember 2023 9:30amSecondary polycythemiaacuteDecember 2023 9:30amHigh granulocyte countacuteDecember 2023 9:53amSecondary polycythemiaacuteDecember 2023 9:53amBMI 32.0-32.9,adultacuteDecember 2023 11:14amChronic kidney disease (CKD) stage G2/A2, mildly decreased glomerular filtracuteDeceer 2023 11:14amDietary counseling and surveillanceacutecember 2023 11:14amHyperlipidemiaacuteDecember 2023 11:14amHypertensionacuteDecember 2023 11:14amPeripheral neuropathy acuteDecember 2023 11:14amType 2 diabetes mellitusacuteDecember 2023 11:14amVitamin B 12 deficiencyacuteDecember 2023 11:14amAtrial fibrillationacuteDecember 2023 10:38pmGeneralized weaknessacuteDecember 2023 10:38pmInsulin dependent diabetes mellitusacuteDecember 4 10:38pmTIA (transient ischemic attack)acuteDeceer 2023 10:38pmCigarette nicotine dependenceacuteApruary 2024 1:02pmDisordered sleepacuteMay 07, 2024 1:02pmHypotensionacuteJanuary 2024 1:02pmStool incontinenceacute Keyla 2024 1:02pmTIA (transient ischemic attack)acuteJanuary 2024 1:02pm [facility] Work Phone: 1(399) 315-362012-11-2024 History of Present illness Narrative* Karl Fritz, BARRIE - 04/08/2024 4:00 PM EST Images from the original note were not included. HPI: Patient presents today complaining of an ulcer on the lateral 5th right foot. Patient has pain withwalking and standing due to this lesion. Patient has tried [place] ER for treatment, x-ray, antibiotic, (not taking [...] 7. RTC: 2 weeks. 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 History of Present Illness, Associated Treatments and Results - Dx SLEEP Tx (temazepam 30 --[place]/FMD) (+ OFF nortriptyline) AEs Hx Not reviewed [...] L2-3 modB L4-5-S1 modB US LE (12/2016, [place]) - atherosclerosis, nl PVR. Testing [facility] (11/2023) - acute L S1 (nEMG) + PN pattern signif worse . . . . (03/2017, [facility]) - PN pattern Labs - Z83=708/15/116/>22.3, was 359/16.7H/328/>22.3 ... A1c=8.4, was 10.4(!) ,,, [...] off nortrip. Onset [facility] ([facility]) - not available via OHIP - atrophy [...] ___, orig: ___ Motor - ___, unchanged: Head Of Drama 4B ... APB 4R 4+L, orig: ___ [...] smear of cervix hpv positive COVID-19 Diabetes ([facility]/HCC) Fibromyalgia High cholesterol ([facility]) History of medical problems ulcer HTN (hypertension) ([facility]) Neuropathy Rheumatoid arthritis ([facility]/HCC) Scarlet fever Stomach ulcer Tonsillitis Past Surgical History: Procedure Laterality Date BIOPSY 04/2020 vulvar CARPAL TUNNEL RELEASE Right 2018 COLPOSCOPY 01/21/2017 COLPOSCOPY 09/2018 COLPOSCOPY 10/2019 COLPOSCOPY 09/2021 ESOPHAGEAL DILATION HYSTERECTOMY PARTIAL HYSTERECTOMY NC VULVECTOMY SIMPLE PARTIAL 12/2018 TONSILLECTOMY VULVECTOMY 12/2017 [...] in the morning. Continuous Blood Gluc Sensor (SoFiStyle [place] 14 Day Sensor) [facility] apply 1 SENSOR as directed every 14 [...] if tolerated 60 tablet 3 Droplet Pen [place] 32G X 4 MM [facility] use 1 PEN NEEDLE to inject MEDICATION [...] ? [address] ? [place], [place] [address] ? ? fax Neurology ? Clinical Neurophysiology ? Epilepsy ? Sleep Disorders ? Clinical Informatics documented in this encounterUniversity [id number] History of Present illness Narrative* Roland Faust [...] exam, discussion and plan. documented in this [facility] Work Phone: 1(178) 598-541811-27-2024 Instructions* Patient Instructions* Dave Meneses MA - [...] time of your visit. documented in this [facility] Work Phone: 1(389) 343-951510-29-2024 History of Present illness Narrative* Oz Kincaid MD - 02/25/2024 2:43 PM EDTAssociated Problem(s): PO positive Get Dr. Gonzalez's note (2nd request). * Oz Kincaid MD - 02/25/2024 2:15 PM EDTAssociated Problem(s): Cognitive decline Add memantine 10 -> bid. Then add donepezil 10, titrate. Handout. Get MR images transferred to [facility] for my review. * Oz [...] [facility] for my review. Neurogenic pain [...] [facility]) - PN pattern Labs - N16=102/15/116/>22.3, was 359/16.7H/328/>22.3 ... A1c=8.4, was 10.4(!) ,,, [...] ___, orig: ___ Motor - ___, unchanged: Head Of Drama 4B ... APB 4R 4+L, orig: ___ [...] COLPOSCOPY 09/2021 ESOPHAGEAL DILATION HYSTERECTOMY PARTIAL HYSTERECTOMY NC VULVECTOMY SIMPLE PARTIAL 12/2018 TONSILLECTOMY VULVECTOMY 12/2017 [...] Gluc Sensor (FreeStyle [place] 14 Day Sensor) [facility] apply 1 SENSOR as directed every 14 days use with DEVICE to MONIT... (REFER TO PRESCRIPTION NOTES). cyanocobalamin (Vitamin B-12) 2500 MCG tablet cyclobenzaprine (Flexeril) 10 MG tablet 1-2 tabs QHS 60 tablet 3 Docusate Sodium (DSS) 100 MG capsule Take 100 mg by mouth in the morning and 100 mg in the evening. Droplet Pen [place] 32G X 4 MM mis use 1 PEN NEEDLE to inject MEDICATION [...] ? [address] ? [place], [place] [address] ? ? fax Neurology ? Clinical Neurophysiology ? Epilepsy ? Sleep Disorders ? Clinical Informatics documented in this encounterUniversity [id number] History of Present illness Narrative* Karl Fritz DPM - 02/10/2024 2:00 PM EDT Images from the original note were not included. HPI: Patient presents today complaining of an ulcer on the plantar 1st met right foot. They have noticedthis for the past month (10/2023). Patient has pain with walking and standing due to this lesion. Patient has tried [place] [facility] for treatment, x-ray, antibiotic, (not taking [...] 7. RTC: 2 weeks. documented in this encounterUniversity [id number] History of Present illness Narrative* Karl Fritz DPM - 01/27/2024 10:30 AM EDT Images from the original note were not included. HPI: Patient presents today complaining of an ulcer on the plantar 1st met right foot. They have noticedthis for the past month (10/2023). Patient has pain with walking and standing due to this lesion. Patient has tried [facility] for treatment, x-ray, antibiotic, (not taking [...] 1 week for recheck. documented in this encounterUniversity [id number] History of Present illness Narrative* Karl Fritz [...] 1 week for recheck. documented in this encounterUniversity [id number] Telephone encounter Note* Telephone Encounter - Cali Duque - 01/10/2024 2:34 PM EDT Called and spoke with Corinna twice both times got disconnected. On purpose or by accident not sure, second time Corinna was given Dr Kincaid's answer. Not sure if she got full and complete answer, but she got enough of it. University [id number] Miscellaneous Notes* Telephone Encounter - Cali Duque [...] x several days, then 300 bid Corinna [phone] documented in this encounterUniversity HospitalShwmnlpqcs31-26-2375 Telephone encounter Note* Telephone Encounter - Cali Duque - 01/08/2024 12:37 PM EDT Daughter (Corinna Ayala) called, She was talking with Taye's Nurse, They would like to know if Gabapentin would be a better option for Taye than the PGB? You just inc her PGB from 1 cap bid to 150/300 x several days, then 300 bid Corinna [phone] University [id number] History of Present illness Narrative* Oz Kincaid [...] incr to 20 hs. (Continue PT.) * zO Kincaid MD - 01/07/2024 1:37 PM EDTAssociated [...] L2-3 modB L4-5-S1 modB US LE (12/2016, [place]) - atherosclerosis, nl PVR. Testing [facility] (11/2023) - acute L S1 (nEMG) + PN pattern signif worse . . . . (03/2017, [facility]) - PN pattern Labs - O77=217/15/116/>22.3, was 359/16.7H/328/>22.3 ... A1c=8.4, was 10.4(!) ,,, [...] ___, orig: ___ Motor - ___, unchanged: Head Of Drama 4B ... APB 4R 4+L, orig: ___ [...] smear of cervix hpv positive COVID-19 Diabetes ([facility]/HCC) Fibromyalgia High cholesterol ([facility]) History of medical problems ulcer HTN (hypertension) ([facility]) Neuropathy Rheumatoid arthritis ([facility]) Scarlet fever Stomach ulcer Tonsillitis Past Surgical History: Procedure Laterality Date BIOPSY 04/2020 vulvar CARPAL TUNNEL RELEASE Right 2018 COLPOSCOPY 01/21/2017 COLPOSCOPY 09/2018 COLPOSCOPY 10/2019 COLPOSCOPY 09/2021 ESOPHAGEAL DILATION HYSTERECTOMY PARTIAL HYSTERECTOMY NC VULVECTOMY SIMPLE PARTIAL 12/2018 TONSILLECTOMY VULVECTOMY 12/2017 [...] Gluc Sensor (FreeStyle [place] 14 Day Sensor) [facility] apply 1 SENSOR as directed every 14 days use with DEVICE to MONIT... (REFER TO PRESCRIPTION NOTES). cyanocobalamin (Vitamin B-12) 2500 MCG tablet Docusate Sodium (DSS) 100 MG capsule Take 100 mg by mouth in the morning and 100 mg in the evening. Droplet Pen [place] 32G X 4 MM [facility] use 1 PEN NEEDLE to inject MEDICATION [...] 01/07/2024. Oz Kincaid M.D. documented in this encounterUniversity [id number] History of Present illness Narrative* Karl Fritz [...] due to this lesion. Patient has tried [facility] for treatment, x-ray, antibiotic, (not taking [...] 7. RTC: 2 weeks. documented in this encounterUniversity HospitalNjjtlocodp37-04-0764 History of Present illness Narrative* Oz Kincaid [...] arranged Oz Kincaid M.D. documented in this encounterUniversity HospitalOwakbidado10-99-1170 History of Present illness Narrative* Roland Faust [...] By signing my name below, ISofie LPN [employer] attest that this documentation has been prepared [...] and plan. documented in this encounterUniversity Hospitals of Keyes Work Phone: 1(463) 110-556108-19-2024 Instructions* Patient Instructions* Sofie Dean LPN - [...] to Increase physical activity. documented in this encounterOur [facility] of [facility] Work Phone: 1(731) 601-408607-17-2024 History of Present illness Narrative* Jonas Ch [...] Cardiology 2. Nonischemic cardiomyopathy (Multi) Resolved with zoroastrian of sinus rhythm 3. Hypercholesteremia Review of [...] exam, discussion and plan. documented in this encounterOur Lady of Mercy Hospital Work Phone: 1(451) 300-332107-17-2024 Instructions* Patient Instructions* Dakota Barraza RN - [...] to Increase physical activity documented in this encounterOur Lady of Mercy Hospital Work Phone: 1(204) 283-432707-15-2024 Progress note Author Chaka Frye [facility] November 11, 2023 4:15pmNote Date/TimeJuly 2023 4:15pm[place] [address] Hospitalist Progress Note Signed Patient: Taye Gay MR#: [id number] : 1955 Acct:[id number] Age/Sex: 67 / F Adm Date: 4 Loc: 4N Room: 6K2470-0 Type: ADM IN Attending Dr: Chaka Frye [...] Tablet PO 11/09/24 08:59 200 mg BID [place] Administration Apixaban 5 mg 11/10/23 09:00 11/11/23 08:44 Apixaban 5 Mg Tablet PO 11/09/24 08:59 5 mg BID [place] Administration Aspirin 81 mg 11/10/23 09:00 11/11/23 08:44 Aspirin [address] MINOR 11/09/24 08:59 81 mg DAILY [place] Administration Empagliflozin 25 mg 11/10/23 09:00 11/11/23 08:44 Empagliflozin 25 Mg Tablet PO 11/09/24 08:59 25 mg DAILY [place] Administration Folic Acid 1 mg 11/10/23 09:00 11/11/23 08:44 Folic Acid 1 Mg Tablet PO 11/09/24 08:59 1 mg DAILY [place] Administration Ceftriaxone Sodium 1 gm in 50 mls @ 100 mls/hr 11/11/23 05:30 11/11/23 05:31 Rocephin IV 100 mls/hr Q24H [place] Administration Magnesium Oxide 400 mg 11/10/23 09:00 11/11/23 08:44 Magnesium Oxide 400 Mg Tablet PO 11/09/24 08:59 400 mg DAILY [place] Administration Melatonin 5 mg 11/10/23 05:21 11/10/23 21:37 Melatonin 5 Mg Tablet PO 11/09/24 05:20 5 mg QHS PRN Administration Insomnia Metoprolol Succinate 50 mg 11/10/23 09:00 11/11/23 14:35 Metoprolol Succinate 50 Mg Tab.Er.24h PO 11/09/24 08:59 Not Given TID [place] Ondansetron HCl 4 mg 11/10/23 05:21 Ondansetron 4 Mg/2 Ml Vial IV-PUSH 11/09/24 05:20 Q8H PRN Nausea And Vomiting Pioglitazone HCl 15 mg 11/10/23 09:00 11/10/23 21:36 Pioglitazone 15 Mg Tablet PO 11/09/24 08:59 15 mg HS [place] Administration Sodium Chloride 0 ml 11/09/23 22:07 [...] <Electronically signed by Chaka Frye MD> 11/11/23 161 [facility] Work Phone: 1(152) 311-374507-15-2024 Consult note Author Lit Clark [facility] November 11, 2023 3:11pmNote Date/TimeJuly 2023 10:43[place] [id number] Neurology Consult Note Signed Patient: Taye Gay MR#: [id number] : 1955 Acct:[id number] Age/Sex: 67 / F Adm Date: 4 Loc: 4N Room: 5W2391-0 Type: ADM IN Attending Dr: Chaka Frye MD Copies to: DO Geraldo Garrido MD, RES MD Sandra Mar, ~ HPI Consult Date: 11/11/23 Instant Potato Processor: Geraldo Vo MD, RES Reason for consult: Progressive generalized weakness Consult Narrative HPI: Taye Gay is a 67 y.o. female with a PMH of esophageal stricture, cigarette smoker, GERD, HTN, type 2 diabetes mellitus, HLD, CKD stage G2/A2, peripheral neuropathy and vit B12 deficiency who presented to [facility] on 11/10/23 for concerns regarding generalized weakness. Neurology was consulted for evaluation of generalized weakness. Additional HPI is noted in Assessment and Plan. [facility] Medical History History of esophageal stricture BMI [...] Father Heart disease [facility]: Diagnosed with Stroke Cancer throat [...] Confirmed 11/09/23] pen needle, diabetic [Sure-Fine Pen [place]] 06/12/23 [History Confirmed 11/09/23] omeprazole 20 mg [...] Oz Bowling M.D.11/10/2023 1:15 PM Dictation Location: [place] [address] Therapy Recommendations Therapy Recommendations: OT Recommendations OT Recommended Discharge Fpc Facility Location OT Recommended Services at Physical Therapy,Occupational Therapy Discharge PT Recommendations PT Recommended Discharge Fpc Facility Location PT Recommended Services at Physical Therapy,Occupational Therapy Discharge Assessment/Plan (1) Ambulatory dysfunction: (2) Weakness: (3) Hypothyroid: Qualifiers: Hypothyroidism type: unspecified Qualified Code(s): E03.9 - Hypothyroidism, unspecified (4) Hypomagnesemia: (5) Type 2 diabetes mellitus with hyperglycemia: Qualifiers: Diabetes mellitus skilled nursing insulin use: unspecified skilled nursing insulin use status Qualified Code(s): E11.65 - Type 2 diabetes mellitus with hyperglycemia (6) Vitamin B 12 deficiency: Plan CONSULT REASON: Generalized weakness HPI: Taye Gay is a 67 y.o. female with a PMH of esophageal stricture, cigarette smoker, GERD, HTN, type 2 diabetes mellitus, HLD, CKD stage G2/A2, peripheral neuropathy and vit B12 deficiency who presented to [facility] on 11/10/23 for concerns regarding generalized [...] by MD GAGE Vo> 11/11/23 1043 [facility] Work Phone: 1([phone]) 701-535607-14-2024 Progress note Author Kirt Renae [facility] November 10, 2023 12:24pmNote Date/TimeJuly 2023 12:00pm[place] [address] Hospitalist Progress Note Signed Patient: Taye Gay MR#: [id number] : 1955 Acct:[id number] Age/Sex: 67 / F Adm Date: 4 Loc: 4N Room: [address] [place] [address] Type: ADM IN Attending Dr: Kirt Renae [...] Tablet PO 11/09/24 08:59 200 mg BID [place] Administration Apixaban 5 mg 11/10/23 09:00 11/10/23 08:44 Apixaban 5 Mg Tablet PO 11/09/24 08:59 5 mg BID [place] Administration Aspirin 81 mg 11/10/23 09:00 11/10/23 08:45 Aspirin 81 Mg Tablet. PO 11/09/24 08:59 81 mg DAILY [place] Administration Empagliflozin 25 mg 11/10/23 09:00 11/10/23 08:44 Empagliflozin 25 Mg Tablet PO 11/09/24 08:59 25 mg DAILY [place] Administration Folic Acid 1 mg 11/10/23 09:00 11/10/23 08:45 Folic Acid 1 Mg Tablet PO 11/09/24 08:59 1 mg DAILY [place] Administration Ceftriaxone Sodium 1 gm in 50 mls @ 100 mls/hr 11/11/23 05:30 Rocephin IV Q24H [facility] Magnesium Oxide 400 mg 11/10/23 09:00 11/10/23 08:44 Magnesium Oxide 400 Mg Tablet PO 11/09/24 08:59 400 mg DAILY [place] Administration Melatonin 5 mg 07/14/24 05:21 Melatonin 5 Mg Tablet PO 11/09/24 05:20 QHS PRN Insomnia Metoprolol Succinate 50 mg 11/10/23 09:00 11/10/23 08:44 Metoprolol Succinate 50 Mg Tab.Er.24h PO 11/09/24 08:59 50 mg TID [place] Administration Ondansetron HCl 4 mg 11/10/23 05:21 Ondansetron 4 Mg/2 Ml Vial IV-PUSH 11/09/24 05:20 Q8H PRN Nausea And Vomiting Pioglitazone HCl 15 mg 11/10/23 09:00 11/10/23 08:45 Pioglitazone 15 Mg Tablet PO 11/09/24 08:59 15 mg HS [place] Administration Sodium Chloride 0 ml 11/09/23 22:07 [...] ESR and CRP -Obtain anti Sushma, Anti ASSISTANT FINANCIAL ACCOUNTANT, anti dsDNA -Obtain CT head without contrast [...] by Kirt Renae MD> 11/10/23 1224 [facility] Work Phone: 1([phone] 509-942607-14-2024 History and physical note Author Jluis Campos [facility] November 10, 2023 6:20amNote Date/TimeJuly 2023 6:11am[place] [address] Hospitalist H&P Signed Patient: Taye Gay MR#: [id number] : 1955 Acct:[id number] Age/Sex: 67 / F Adm Date: 4 Loc: Room: [address] [place] [address] Type: ADM IN Attending Dr: Jluis Campos [...] unless noted below or in HPI [facility] Medical History History of esophageal stricture BMI [...] Father Heart disease [facility]: Diagnosed with Stroke Cancer throat [...] Confirmed 11/09/23] pen needle, diabetic [Sure-Fine Pen [place]] 06/12/23 [History Confirmed 11/09/23] omeprazole 20 mg [...] weaknesses were noted, patient unable to ambulate. Ushn-yo-cgbx test was normal. No tremors or ataxia with unfxae-nq-obdg movements. Neuro: AOx3, CN II-VII intact. Moves [...] % (Auto) 26.0 % (.) 11/10/23 03:41 Giles % (Auto) 8.2 % (.) 11/10/23 03:41 Eos % (Auto) 3.7 % (.) 11/10/23 03:41 Baso % (Auto) 0.9 % (.) 11/10/23 03:41 Nucleat RBC Rel Count 0.1 /100 WBC (0-0.5) 11/10/23 03:41 Neut # (Auto) 5.2 x10E3/uL (1.8-7.7) 11/10/23 03:41 Lymph # (Auto) 2.2 x10E3/uL (1.00-4.8) 11/10/23 03:41 Giles # (Auto) 0.7 x10E3/uL (0.0-0.8) 11/10/23 03:41 [...] pH 6.0 (5.0-9.0) 11/10/23 05:02 Ur Specific [place] 1.007 (1.001-1.030) 11/10/23 05:02 Urine Protein Negative mg/dL (Negative) 11/10/23 05:02 Urine Glucose (UA) 1000 mg/dL (Normal) H 07/14/24 05:02 Urine Ketones Negative (Negative) 11/10/23 05:02 [...] <Electronically signed by Jluis Campos DO> 11/10/23619 [facility] Work Phone: 1(898) 853-279007-09-2024 [facility] noteProv[facility] Hospital06-10-2024 History of Present illness Narrative* Jonas [...] to make adjustments and amiodarone before my snf. Vitals: 10/07/23 0948 BP: 114/90 BP Location: [...] mellitus with other specified complication, unspecified whether middle or intermediate school principal insulin use (Multi) Managed by other providers 7. BMI 28.0-28.9,adult The merits of diet and weight loss were advocated Scribe Attestation By signing my name below, I, Sofie RJ [employer]er[employer] attest that this documentation has been prepared [...] exam, discussion and plan. documented in this encounterOur [facility] of [facility]cy Hospital Work Phone: [phone]) 479-779006-10-2024 Instructions* Patient Instructions* Cary Mcdonnell RN - [...] Fall Prevention Education Given documented in this encounterOur Lady of Mercy [facility] Work Phone: 1(165) 343-752605-18-2024 Progress note Author Faraz Gilliam [facility] September 14, 2023 1:34pmNote Date/TimeMay 2023 1:26pm[place] [address] Cardiology Progress Note Signed Patient: Taye Gay MR#: [id number] : 1955 Acct:[id number] Age/Sex: 67 / F Adm Date: 4 Loc: 3T Room: [address] [place] [address] Type: ADM IN Attending Dr: Elva Florian [...] signed by Faraz Gilliam MD> 09/14/23 1334 [facility] Work Phone: 1([phone]) 769-145705-18-2024 Progress note Author Elva Florian [facility] September 14, 2023 2:03amNote Date/TimeMay 2023 6:15pm[place] [address] Hospitalist Progress Note Signed Patient: Taye Gay MR#: [id number] : 1955 Acct:[id number] Age/Sex: 67 / F Adm Date: 4 Loc: Room: [address] [place] [address] Type: ADM IN Attending Dr: Elva Florian [...] Tablet PO 09/12/24 12:29 5 mg BID [place] Administration Aspirin 81 mg 09/13/23 09:00 09/13/23 08:37 Aspirin 81 Mg Tablet.Dr PO 09/12/24 08:59 81 mg DAILY [place] Administration Atorvastatin Calcium 10 mg 09/13/23 09:00 09/13/23 08:38 Atorvastatin 10 Mg Tablet PO 09/12/24 08:59 10 mg DAILY [place] Administration Dextrose 0 gm 09/12/23 20:04 Dextrose 50% In Water 25 Gm/50 Ml Syringe IV-PUSH 09/11/24 20:03 PRN PRN Hypoglycemia Diltiazem HCl 30 mg 09/12/23 22:00 09/13/23 13:53 Diltiazem 30 Mg Tablet PO 09/11/24 21:59 30 mg QID [facility] Administration Docusate Sodium 100 mg 09/13/23 09:00 09/13/23 08:37 Docusate 100 Mg Capsule PO 09/12/24 08:59 100 mg DAILY [facility] Administration Empagliflozin 25 mg 09/13/23 09:00 09/13/23 08:38 Empagliflozin 25 Mg Tablet PO 09/12/24 08:59 25 mg DAILY [facility] Administration Folic Acid 1 mg 09/13/23 09:00 09/13/23 08:38 Folic Acid 1 Mg Tablet PO 09/12/24 08:59 1 mg DAILY [facility] Administration Glucose 0 gm 09/12/23 20:04 Dextrose 40% Gel 15 Gm Tube PO 09/11/24 20:03 PRN PRN Hypoglycemia Insulin Aspart 0 units 09/12/23 22:00 09/13/23 16:24 Insulin Aspart 300 Units/3 Ml Insuln.Pen SUBCUT 09/11/24 21:59 Not Given TID.WM.HS [facility] Protocol Insulin Glargine 20 units 09/13/23 09:00 09/13/23 08:40 Insulin Glargine 300 Units/3 Ml Insuln.Pen SUBCUT 09/12/24 08:59 20 units DAILY [facility] Administration Metoprolol Succinate 50 mg 09/14/23 09:00 Metoprolol Succinate 50 Mg Tab.Er.24h PO 09/13/24 08:59 DAILY [facility] Metoprolol Tartrate 5 mg 09/12/23 20:04 09/13/23 16:47 Metoprolol Tartrate 5 Mg/5 Ml Vial IV-PUSH 09/11/24 20:03 5 mg Q4H PRN Administration Hypertension Nortriptyline HCl 100 mg 09/13/23 09:00 09/13/23 08:37 Nortriptyline 25 Mg Capsule PO 09/12/24 08:59 100 mg DAILY [place] Administration Ondansetron HCl 4 mg 09/12/23 19:59 Ondansetron 4 Mg/2 Ml Vial IV-PUSH 09/11/24 19:58 Q6H PRN Nausea And Vomiting Pantoprazole Sodium 40 mg 09/13/23 09:00 09/13/23 08:38 Pantoprazole 40 Mg Tablet. PO 09/12/24 08:59 40 mg DAILY [place] Administration Sodium Chloride 0 ml 09/12/23 14:25 09/13/23 16:47 Sodium Chloride 0.9 % 10 Ml Syringe IV-PUSH 09/11/24 14:24 10 ml PRN PRN Administration Flush Temazepam 30 mg 09/13/23 22:00 Temazepam 15 Mg Capsule PO 03/11/24 21:59 QHS [facility] A&P - Hospitalist Assessment/Plan (1) New onset atrial flutter: (2) Atrial flutter with rapid ventricular response: (3) Type 2 diabetes mellitus: (4) Hyperlipidemia: (5) Hypertension: Plan Documented By: Elva Florian MD 09/13/231808 Signed By: <Electronically signed by Elva Florian MD> 09/14/23 0203 [facility] Work Phone: 1(280) 118-510505-17-2024 Consult note Author Jonas Ch [facility] September 13, 2023 12:25pmNote Date/TimeMay 2023 12:26pm[place] [address] Cardiology Consult Note Signed Patient: Taye Gay MR#: [id number] : 1955 Acct:[id number] Age/Sex: 67 / F Adm Date: 4 Loc: 3T Room: [address] [place] [address] Type: ADM INOo Attending Dr: Elva Florian [...] no additional complaints, except as documented [facility] Medical History History of esophageal stricture BMI [...] Confirmed 09/12/23] pen needle, diabetic [Sure-Fine Pen [place]] 06/12/23 [History Confirmed 09/12/23] nortriptyline 50 mg [...] x10E3/uL Lymph # (Auto) 2.0 (1.00-4.8) x10E3/uL Giles # (Auto) 0.6 (0.0-0.8) x10E3/uL Eos # [...] ml @ 999 mls/hr IV .Q1H1M ONE Rx#:[id number] Oral 50 / 50 Output: Urine 600 [...] signed by MD Jonas Ch> 09/13/23 1225 [facility] Work Phone: 1(273) 982-107705-17-2024 History and physical note Author Elva Florian [facility] September 13, 2023 2:09amNote Date/TimeMay 2023 7:53pm[place] [address] Hospitalist H&P Signed Patient: Taye Gay MR#: [id number] : 1955 Acct:[id number] Age/Sex: 67 / F Adm Date: 4 Loc: Room: [address] [place] [address] Type: ADM INOo Attending Dr: Elva Florian [...] Discussed with:?the medical team, the patient [facility] Medical History History of esophageal stricture BMI [...] Confirmed 09/12/23] pen needle, diabetic [Sure-Fine Pen [place]] 06/12/23 [History Confirmed 09/12/23] nortriptyline 50 mg capsule 100 mg PO DAILY 06/18/23 [History Confirmed 09/12/23] omeprazole 20 mg capsule,delayed release See Rx Instructions .Route .COMPLEX #90caps 07/01/23 [Rx Confirmed 09/12/23] flash glucose sensor (FreeStyle Rbent 14 Day [...] % (Auto) 20.2 % (.) 09/12/23 14:51 Giles % (Auto) 5.9 % (.) 09/12/23 14:51 Eos % (Auto) 1.7 % (.) 09/12/23 14:51 Baso % (Auto) 0.9 % (.) 09/12/23 14:51 Nucleat RBC Rel Count 0.2 /100 WBC (0-0.5) 09/12/23 14:51 Neut # (Auto) 7.0 x10E3/uL (1.8-7.7) 09/12/23 14:51 Lymph # (Auto) 2.0 x10E3/uL (1.00-4.8) 09/12/23 14:51 Giles # (Auto) 0.6 x10E3/uL (0.0-0.8) 09/12/23 14:51 [...] <Electronically signed by Elva Florian MD> 09/13/23208 [facility] Work Phone: 1(950) 276-503302-12-2024 Evaluation note* Encounter Date Diagnosis Assessment Notes Treatment Notes Treatment Clinical Notes May, Type 2 diabetes mellitus with hy perglycemia (ICD-10 - E11.65) [facility] [employer] Other 01-23-2024 Evaluation note* Encounter Date Diagnosis Assessment Notes Treatment Notes Treatment Clinical Notes Apr, Primary insomnia (ICD-10 - F51.0 1) [employer] Other 12-11-2023 Evaluation note* Encounter Date Diagnosis Assessment Notes Treatment Notes Treatment Clinical Notes Mar, Type 2 diabetes mellitus with hy perglycemia (ICD-10 - E11.65) [facility] [employer] Other 11-06-2023 Evaluation note* Encounter Date Diagnosis [...] K21.9)Discussed can start famotidine PRN breakthrough GERD [employer] Other 10-02-2023 Evaluation note* Encounter Date Diagnosis Assessment Notes Treatment Notes Treatment Clinical Notes Jan, Primary insomnia (ICD-10 - F51.0 1) [employer] Other 09-11-2023 Evaluation note* Encounter Date Diagnosis Assessment Notes Treatment Notes Treatment Clinical Notes Dec, Type 2 diabetes mellitus with hy perglycemia (ICD-10 - E11.65) Managing type 2 diabetes material was published 1. Controlled, Type 2 diabetes with A1c 6.3% 2. Blood glucose levels improved. According to [employer] cgm download 12/25/2022- 01/07/2023: Avg glucose 156. [...] to make it easier material was published [employer] Other 09-06-2023 Evaluation note* Encounter Date Diagnosis Assessment Notes Treatment Notes Treatment Clinical Notes Dec, Esophageal stricture (ICD-10 - K 22.2) Dec,ysphagia (ICD-10 - R13.10)Patient has a narrow esophagus but is improving Patient is to continue omeprazole daily [employer] Other 09-01-2023 Evaluation note* Encounter Date Diagnosis Assessment Notes Treatment Notes Treatment Clinical Notes Dec, Primary insomnia (ICD-10 - F51.0 1) [employer] Other 08-22-2023 Evaluation note* Encounter Date Diagnosis Assessment Notes Treatment Notes Treatment Clinical Notes Nov, Primary insomnia (ICD-10 - F51.0 1) [employer] Other 08-02-2023 Evaluation note* Encounter Date Diagnosis [...] reviewed and amended by provider signed below. [employer] Other 07-11-2023 Evaluation note* Encounter Date Diagnosis Assessment Notes Treatment Notes Treatment Clinical Notes Oct, Primary insomnia (ICD-10 - F51.0 1) [employer] Other 06-01-2023 Evaluation note* Encounter Date Diagnosis Assessment Notes Treatment Notes Treatment Clinical Notes Sep, Type 2 diabetes mellitus with hy perglycemia (ICD-10 - E11.65) Managing type 2 diabetes material was published 1. Controlled, Type 2 diabetes with A1c 6.6% 2. Blood glucose levels improved. According to [employer] cgm download 09/13/2022- 09/26/2022: Avg glucose 151. [...] or diabetes medication issues. 6. Prescriptions: DEISY AJITH ALMANZAR MEAGHAN: None at this time. 7. [...] to make it easier material was published [employer] Other 05-15-2023 Evaluation note* Encounter Date Diagnosis Assessment Notes Treatment Notes Treatment Clinical Notes August, Primary hypertension (ICD-10 - I 10) August,Type 2 diabetes mellitus with hyperglycemia (ICD-10 - E11.65) [employer] Other 04-13-2023 Evaluation note* Encounter Date Diagnosis [...] F17.200)Due for LDCT for lung CA screening [employer] Other 04-10-2023 Evaluation note* Encounter Date Diagnosis Assessment Notes Treatment Notes Treatment Clinical Notes Jul, Primary insomnia (ICD-10 - F51.0 1) [employer] Other 03-08-2023 Evaluation note* Encounter Date Diagnosis Assessment Notes Treatment Notes Treatment Clinical Notes Jun, Primary insomnia (ICD-10 - F51.0 1) [employer] Other 02-21-2023 Evaluation note* Encounter Date Diagnosis Assessment Notes Treatment Notes Treatment Clinical Notes May, Type 2 diabetes mellitus with hy perglycemia (ICD-10 - E11.65) [employer] Other 02-20-2023 Evaluation note* Encounter Date Diagnosis Assessment Notes Treatment Notes Treatment Clinical Notes May, Type 2 diabetes mellitus with hy perglycemia (ICD-10 - E11.65) Managing type 2 diabetes material was published 1. Uncontrolled, Type 2 diabetes with A1c 7.1% 2. Blood glucose levels improved. According to [facility] [facility] download 06/04/2022- 06/17/2022: Avg glucose 180. [...] - Z68.35)Setting weight-loss goals material was published [employer] Other 02-06-2023 Evaluation note* Encounter Date Diagnosis Assessment Notes Treatment Notes Treatment Clinical Notes May, Primary insomnia (ICD-10 - F51.0 1) [employer] Other 01-26-2023 Evaluation note* Encounter Date Diagnosis Assessment Notes Treatment Notes Treatment Clinical Notes Apr, Hyperlipidemia (ICD-10 - E78.5) [employer] Other 12-06-2022 Evaluation note* Encounter Date Diagnosis Assessment Notes Treatment Notes Treatment Clinical Notes Mar, Type 2 diabetes mellitus with hy perglycemia (ICD-10 - E11.65) [employer] Other 10-19-2022 Evaluation note* Encounter Date Diagnosis Assessment Notes Treatment Notes Treatment Clinical Notes Jan, Primary hypertension (ICD-10 - I 10) [employer] Other 09-13-2022 Evaluation note* Encounter Date Diagnosis Assessment Notes Treatment Notes Treatment Clinical Notes Dec, Type 2 diabetes mellitus with hy perglycemia (ICD-10 - E11.65) Managing type 2 diabetes material was published 1. Uncontrolled, Type 2 diabetes with A1c 7.7% 2. Blood glucose levels above target. According to [employer] [facility] download 12/26/2021- 01/08/2022: Avg glucose 211. >250-19%, >180-33%, 70-180-48%, <70-0%, <54-0%. CV 36.7%. Reviewed downlod withpt., readings above target fasting am/posptrandial. Recommend starting basal insulin. Sample erika pt administered 20 units. Reviewed with pt [...] given. Sent order for toujeo to [facility] [employer] Dec,ietary counseling and surveillance (ICD-10 - Z71.3)Eat [...] last visit, continue with weight loss efforts [employer] Other 08-17-2022 Progress note Author Walter Montgomery [facility] December 13, 2021 8:52amNote Date/TimeAugust 2021 8:52[place] [id number] General Surgery Progress Note Signed Patient: Taye Gay MR#: [id number] : 1955 Acct:[id number] Age/Sex: 66 / F Adm Date: 2 Loc: Room: [address] [place] [address] Type: ADM INOo Attending Dr: Wilmer Vance [...] [facility] U-[facility] Insulin lispro) 1 sliding scaledose [...] 81 Mg Tablet.) 81 mg PO DAILY [facility] Stop: 12/10/22 08:59 Last Admin: 12/12/21 10:33 Dose: Not Given Atorvastatin Calcium (Atorvastatin 10 Mg Tablet) 10 mg PO DAILY [facility] Stop: 12/10/22 08:59 Last Admin: 12/12/21 10:33 Dose: Not Given Cyanocobalamin (Cyanocobalamin 1,000 Mcg Tablet) 1,000 mcg PO DAILY [facility] Stop: 12/13/22 08:59 Dextrose (Dextrose 50% In Water 25 Gm/50 Ml Syringe) 0 gm IV-PUSH PRN PRN PRN Reason: Hypoglycemia Stop: 12/09/22 11:18 Docusate Sodium (Docusate 100 Mg Capsule) 100 mg PO TID [facility] Stop: 12/12/22 21:59 Last Admin: 12/12/21 22:26 Dose: 100 mg Enoxaparin Sodium (Enoxaparin 40 Mg/0.4 Ml Syringe) 40 mg SUBCUT DAILY@10 [facility] Stop: 12/10/22 09:59 Last Admin: 12/12/21 [...] 50 mls @ 100 mls/hr IV Q24H [facility] Last Admin: 12/12/21 11:57 Dose: 100 mls/hr Sodium Chloride (0.9% Sodium Chloride 1,000 Ml) 1,000 mls @ 100 mls/hr IV .[id number] Stop: 12/12/22 00:00 Last Infusion: 12/13/21 03:35 Dose: Infused Lactated Ringer's (Lactated Ringers) 1,000 mls @ 20 mls/hr IV .Q24H [facility] Stop: 12/13/21 11:13 Last Infusion: 12/13/21 03:31 Dose: Infused Insulin Aspart (Insulin Aspart 300 Units/3 Ml Insuln.Pen) 0 units SUBCUT TID.[facility]; Protocol Stop: 12/09/22 11:59 Last Admin: 12/13/21 08:07 Dose: 4 units Nortriptyline HCl (Nortriptyline 25 Mg Capsule) 50 mg PO BID [facility] Stop: 12/09/22 20:59 Last Admin: 12/12/21 22:27 Dose: 50 mg Omeprazole (Omeprazole 20 Mg Capsule.Dr) 20 mg PO DAILY [facility] Stop: 12/10/22 08:59 Last Admin: 12/12/21 10:33 Dose: Not Given Ondansetron HCl (Ondansetron 4 Mg/2 Ml Vial) 4 mg IV-PUSH Q6H PRN PRN Reason: Nausea And Vomiting Stop: 12/12/22 18:19 Pioglitazone HCl (Pioglitazone 15 Mg Tablet) 15 mg PO DAILY [facility] Stop: 12/10/22 08:59 Last Admin: 12/12/21 [...] 15 Mg Capsule) 30 mg PO QHS [facility] Stop: 12/09/22 21:59 Last Admin: 12/12/21 [...] Sodium 137, Potassium 4.4, Chloride 105, Carbon Uegpplh17.6, BUN 12, Creatinine 0.75, Est GFR ( Amer) > 60, Est GFR (Non-Af Amer) > 60, TotalBilirubin 0.7, Direct Bilirubin 0.2, Indirect Bilirubin 0.5 12/13/21 05:58: Corrected WBC 9.4, Uncorrected WBC Count 9.4, RBC 4.41, Hgb 14.2, Hct 41.9, MCV 95.1, MCH 32.2, MCHC 33.9, RDW 12.9, Plt Count 178, MPV 9.3,Neut % (Auto) 90.4, Lymph % (Auto) 7.7, Giles % (Auto) 1.8, Eos % (Auto) 0.0, Baso % (Auto) 0.1, Neut # (Auto) 8.5 H, Lymph # (Auto) 0.7 L, Giles# (Auto) 0.2, Eos # (Auto) 0.0, Baso # (Auto) 0.0, Nucleated RBC % (auto) 0.0 12/12/21 20:42: POC Glucose 214 12/12/21 18:25: POC Glucose 178 12/12/21 15:26: POC Glucose 133 12/12/21 11:48: POC Glucose 167 12/12/21 07:47: PHA Creatinine Clear 83.77, Sodium 136, Potassium 3.8, Chloride 103, Carbon Auiwjym74.5, BUN 5 L, Creatinine 0.76, Est GFR [...] % (Auto) 72.7, Lymph % (Auto) 16.1, Giles % (Auto) 8.8, Eos % (Auto) 2.1, Baso % (Auto) 0.3, Neut # (Auto) 5.3, Lymph # (Auto) 1.2, Giles # (Auto) 0.6, Eos# (Auto) 0.2, Baso [...] Neut % (Auto) 66.8, Lymph % (Auto) 21.0,Giles % (Auto) 9.2, Eos % (Auto) 2.6, Baso % (Auto) 0.4, Neut # (Auto) 4.1, Lymph # (Auto) 1.3, Giles# (Auto) 0.6, Eos # (Auto) 0.2, Baso [...] signed by DO Walter Montgomery> 12/13/21 0852 [facility] Work Phone: [phone] Progress note Author Teresa Tae [facility] December 12, 2021 8:43pmNote Date/TimeAugust 2021 2:49[place] [id number] Urology Progress Note Signed Patient: Taye Gay MR#: [id number] : 1955 Acct:[id number] Age/Sex: 66 / F Adm Date: 2 Loc: Room: [address] [place] [address] Type: ADM INOo Attending Dr: Arleen Stephen [...] Sodium 136, Potassium 3.8, Chloride 103, Carbon Gcboloe91.5, BUN 5 L, Creatinine 0.76, Est GFR [...] % (Auto) 72.7, Lymph % (Auto) 16.1, Giles % (Auto) 8.8, Eos % (Auto) 2.1, Baso % (Auto) 0.3, Neut # (Auto) 5.3, Lymph # (Auto) 1.2, Giles # (Auto) 0.6, Eos# (Auto) 0.2, Baso [...] Neut % (Auto) 66.8, Lymph % (Auto) 21.0,Giles % (Auto) 9.2, Eos % (Auto) 2.6, Baso % (Auto) 0.4, Neut # (Auto) 4.1, Lymph # (Auto) 1.3, Giles# (Auto) 0.6, Eos # (Auto) 0.2, Baso [...] at least 7-10 days for UTI <Teresa Strogn MD - Last Filed: 12/12/21 20:43> Assessment/Plan [...] <Electronically signed by Teresa Strong MD> 12/12/212042 [facility] Work Phone: [phone] Progress note Author Arleen Stephen [facility] December 12, 2021 1:20pmNote Date/TimeAugust 2021 1:20[place] [address] Hospitalist Progress Note Signed Patient: Taye Gay MR#: [id number] : 1955 Acct:[id number] Age/Sex: 66 / F Adm Date: 2 Loc: Room: [address] [place] [address] Type: ADM INOo Attending Dr: Arleen Stephen [...] Tablet. PO 12/10/22 08:59 Not Given DAILY [facility] Atorvastatin Calcium 10 mg 12/10/21 09:00 12/12/21 10:33 Atorvastatin 10 Mg Tablet PO 12/10/22 08:59 Not Given DAILY [facility] Dextrose 0 gm 12/09/21 11:19 Dextrose 50% In Water 25 Gm/50 Ml Syringe IV-PUSH 12/09/22 11:18 PRN PRN Hypoglycemia Enoxaparin Sodium 40 mg 12/10/21 10:00 12/12/21 10:33 Enoxaparin 40 Mg/0.4 Ml Syringe SUBCUT 12/10/22 09:59 Not Given DAILY@10 [facility] Glucose 0 gm 12/09/21 11:19 Dextrose 40% [...] 12/12/21 11:57 Rocephin IV 100 mls/hr Q24H [facility] Administration Sodium Chloride 1,000 mls @ 100 mls/hr 12/12/21 00:00 12/12/21 10:32 0.9% Sodium Chloride 1,000 Ml IV 12/12/22 00:00 100 mls/hr .Q10H [facility] Administration Lactated Ringer's 1,000 mls @ 20 mls/hr 12/12/21 11:14 12/12/21 11:57 Lactated Ringers IV 12/13/21 11:13 20 mls/hr .Q24H [facility] Administration Insulin Aspart 0 units 12/09/21 12:00 12/12/21 10:33 Insulin Aspart 300 Units/3 Ml Insuln.Pen SUBCUT 12/09/22 11:59 Not Given TID.WM.HS [facility] Protocol Lidocaine HCl 0.1 ml 12/12/21 11:14 Lidocaine 1% 50 Ml Vial INTRADERMA 12/12/21 17:15 PREOP PRN Venipuncture Nortriptyline HCl 50 mg 12/09/21 21:00 12/12/21 10:33 Nortriptyline 25 Mg Capsule PO 12/09/22 20:59 Not Given BID [facility] Omeprazole 20 mg 12/10/21 09:00 12/12/21 10:33 Omeprazole 20 Mg Capsule.Dr PO 12/10/22 08:59 Not Given DAILY [facility] Ondansetron HCl 4 mg 12/09/21 11:19 Ondansetron 4 Mg/2 Ml Vial IV-PUSH 12/09/22 11:18 Q8H PRN Nausea And Vomiting Pioglitazone HCl 15 mg 12/10/21 09:00 12/12/21 10:33 Pioglitazone 15 Mg Tablet PO 12/10/22 08:59 Not Given DAILY [facility] Potassium Chloride 40 meq 12/09/21 11:19 Potassium [...] Capsule PO 12/09/22 21:59 30 mg QHS [facility] Administration Tramadol HCl 50 mg 12/09/21 11:19 [...] by Arleen Stephen MD> 12/12/21 1320 [facility] Work Phone: [phone] Progress note Author Walter Montgomery [facility] December 12, 2021 8:07amNote Date/TimeAugust 2021 8:07[place] [address] General Surgery Progress Note Signed Patient: Taye Gay MR#: [id number] : 1955 Acct:[id number] Age/Sex: 66 / F Adm Date: 2 Loc: Room: [address] [place] [address] Type: ADM INOo Attending Dr: Arleen Stephen [...] 81 Mg Tablet.) 81 mg PO DAILY [facility] Stop: 12/10/22 08:59 Last Admin: 12/11/21 08:00 Dose: 81 mg Atorvastatin Calcium (Atorvastatin 10 Mg Tablet) 10 mg PO DAILY [facility] Stop: 12/10/22 08:59 Last Admin: 12/11/21 08:00 Dose: 10 mg Dextrose (Dextrose 50% In Water 25 Gm/50 Ml Syringe) 0 gm IV-PUSH PRN PRN PRN Reason: Hypoglycemia Stop: 12/09/22 11:18 Enoxaparin Sodium (Enoxaparin 40 Mg/0.4 Ml Syringe) 40 mg SUBCUT DAILY@10 [facility] Stop: 12/10/22 09:59 Last Admin: 12/11/21 09:19 [...] 50 mls @ 100 mls/hr IV Q24H [facility] Last Infusion: 12/11/21 10:15 Dose: Infused Sodium Chloride (0.9% Sodium Chloride 1,000 Ml) 1,000 mls @ 100 mls/hr IV .[id number] Stop: 12/12/22 00:00 Last Admin: 12/12/21 00:10 Dose: 100 mls/hr Insulin Aspart (Insulin Aspart 300 Units/3 Ml Insuln.Pen) 0 units SUBCUT TID.WM.HS [facility]; Protocol Stop: 12/09/22 11:59 Last Admin: 12/11/21 21:21 Dose: 3 units Nortriptyline HCl (Nortriptyline 25 Mg Capsule) 50 mg PO BID [facility] Stop: 12/09/22 20:59 Last Admin: 12/11/21 21:20 Dose: 50 mg Omeprazole (Omeprazole 20 Mg Capsule.Dr) 20 mg PO DAILY [facility] Stop: 12/10/22 08:59 Last Admin: 12/11/21 08:00 Dose: 20 mg Ondansetron HCl (Ondansetron 4 Mg/2 Ml Vial) 4 mg IV-PUSH Q8H PRN PRN Reason: Nausea And Vomiting Stop: 12/09/22 11:18 Pioglitazone HCl (Pioglitazone 15 Mg Tablet) 15 mg PO DAILY [facility] Stop: 12/10/22 08:59 Last Admin: 12/11/21 [...] 15 Mg Capsule) 30 mg PO QHS [facility] Stop: 12/09/22 21:59 Last Admin: 12/11/21 [...] Neut % (Auto) 66.8, Lymph % (Auto) 21.0,Giles % (Auto) 9.2, Eos % (Auto) 2.6, Baso % (Auto) 0.4, Neut # (Auto) 4.1, Lymph # (Auto) 1.3, Giles# (Auto) 0.6, Eos # (Auto) 0.2, Baso # (Auto) 0.0, Nucleated RBC % (auto) 0.1 12/11/21 11:05: POC Glucose 195 12/11/21 06:58: POC Glucose 172 12/10/21 21:10: POC Glucose 249 12/10/21 16:18: POC Glucose 176 12/10/21 11:20: POC Glucose 268 12/10/21 06:50: PHA Creatinine Clear 75.03, Sodium 139, Potassium 4.0, Chloride 107, Carbon Qrsbgcw28.2, BUN 8 L, Creatinine 0.86, Est GFR [...] signed by DO Walter Montgomery> 12/12/21 0807 [facility] Work Phone: [phone] Consult note Author Teresa Strong [facility] December 11, 2021 9:25pmNote Date/TimeAugust 2021 8:10pm[place] [id number] Urology Consult Note Signed Patient: Taye Gay MR#: [id number] : 1955 Acct:[id number] Age/Sex: 66 / F Adm Date: 2 Loc: Room: [address] [place] [address] Type: ADM INOo Attending Dr: Arleen Stephen [...] Neut % (Auto) 66.8, Lymph % (Auto) 21.0,Giles % (Auto) 9.2, Eos % (Auto) 2.6, Baso % (Auto) 0.4, Neut # (Auto) 4.1, Lymph # (Auto) 1.3, Giles# (Auto) 0.6, Eos # (Auto) 0.2, Baso # (Auto) 0.0, Nucleated RBC % (auto) 0.1 12/11/21 11:05: POC Glucose 195 12/11/21 06:58: POC Glucose 172 12/10/21 21:10: POC Glucose 249 12/10/21 16:18: POC Glucose 176 12/10/21 11:20: POC Glucose 268 12/10/21 06:50: PHA Creatinine Clear 75.03, Sodium 139, Potassium 4.0, Chloride 107, Carbon Hyuvupd33.2, BUN 8 L, Creatinine 0.86, Est GFR ( Amer) > 60,Est GFR (Non-Af Amer) > 60, Glucose 153 H, Calcium 8.8 12/10/21 06:50: Corrected WBC 7.4, Uncorrected WBC Count 7.4, RBC 4.38, Hgb 14.0, Hct 41.5, MCV 94.9, MCH 32.0, MCHC 33.7, RDW 13.1, Plt Count 141 L D, MPV 9.3, Neut % (Auto) 63.3, Lymph % (Auto) 24.1, Giles % (Auto) 10.5, Eos % (Auto) 1.8, Baso % (Auto) 0.3, Neut # (Auto) 4.7, Lymph # (Auto) 1.8, Giles # (Auto) 0.8, Eos # (Auto) 0.1, [...] <Electronically signed by Teresa Strong MD> 12/11/21 9300 [facility] Work Phone: [phone] Consult note Author Walter Montgomery [facility] December 11, 2021 3:18pmNote Date/TimeAugust 2021 3:18[place] [address] General Surgery Consult Note Signed Patient: Taye Gay MR#: [id number] : 1955 Acct:[id number] Age/Sex: 66 / F Adm Date: 2 Loc: Room: [address] [place] [address] Type: ADM INOo Attending Dr: Arleen Stephen [...] [facility] U[facility] Insulin lispro) 1 sliding scaledose [...] 81 Mg Tablet.Dr) 81 mg PO DAILY [facility] Stop: 12/10/22 08:59 Last Admin: 12/11/21 08:00 Dose: 81 mg Atorvastatin Calcium (Atorvastatin 10 Mg Tablet) 10 mg PO DAILY [facility] Stop: 12/10/22 08:59 Last Admin: 12/11/21 08:00 Dose: 10 mg Dextrose (Dextrose 50% In Water 25 Gm/50 Ml Syringe) 0 gm IV-PUSH PRN PRN PRN Reason: Hypoglycemia Stop: 12/09/22 11:18 Enoxaparin Sodium (Enoxaparin 40 Mg/0.4 Ml Syringe) 40 mg SUBCUT DAILY@10 [facility] Stop: 12/10/22 09:59 Last Admin: 12/11/21 09:19 [...] 50 mls @ 100 mls/hr IV Q24H [facility] Last Infusion: 12/11/21 10:15 Dose: Infused Insulin Aspart (Insulin Aspart 300 Units/3 Ml Insuln.Pen) 0 units SUBCUT TID.WM.[facility]; Protocol Stop: 12/09/22 11:59 Last Admin: 12/11/21 11:33 Dose: 3 units Nortriptyline HCl (Nortriptyline 25 Mg Capsule) 50 mg PO BID [facility] Stop: 12/09/22 20:59 Last Admin: 12/11/21 08:00 Dose: 50 mg Omeprazole (Omeprazole 20 Mg Capsule.Dr) 20 mg PO DAILY [facility] Stop: 12/10/22 08:59 Last Admin: 12/11/21 08:00 Dose: 20 mg Ondansetron HCl (Ondansetron 4 Mg/2 Ml Vial) 4 mg IV-PUSH Q8H PRN PRN Reason: Nausea And Vomiting Stop: 12/09/22 11:18 Pioglitazone HCl (Pioglitazone 15 Mg Tablet) 15 mg PO DAILY [facility] Stop: 12/10/22 08:59 Last Admin: 12/11/21 [...] 15 Mg Capsule) 30 mg PO QHS [facility] Stop: 12/09/22 21:59 Last Admin: 12/10/21 [...] % (Auto) 66.8, Lymph % (Auto) 21.0, Giles % (Auto) 9.2, Eos % (Auto) 2.6, Baso % (Auto) 0.4, Neut # (Auto) 4.1, Lymph # (Auto) 1.3, Giles # (Auto) 0.6, Eos# (Auto) 0.2, Baso # (Auto) 0.0, Nucleated RBC % (auto) 0.1 12/11/21 11:05: POC Glucose 195 12/11/21 06:58: POC Glucose 172 12/10/21 21:10: POC Glucose 249 12/10/21 16:18: POC Glucose 176 12/10/21 11:20: POC Glucose 268 12/10/21 06:50: PHA Creatinine Clear 75.03, Sodium 139, Potassium 4.0, Chloride 107, Carbon Wpzsxxd84.2, BUN 8 L, Creatinine 0.86, Est GFR ( Amer) > 60,Est GFR (Non-Af Amer) > 60, Glucose 153 H, Calcium 8.8 12/10/21 06:50: Corrected WBC 7.4, Uncorrected WBC Count 7.4, RBC 4.38, Hgb 14.0, Hct 41.5, MCV 94.9, MCH 32.0, MCHC 33.7, RDW 13.1, Plt Count 141 L D, MPV 9.3, Neut % (Auto) 63.3, Lymph % (Auto) 24.1, Giles % (Auto) 10.5, Eos % (Auto) 1.8, Baso % (Auto) 0.3, Neut # (Auto) 4.7, Lymph # (Auto) 1.8, Giles # (Auto) 0.8, Eos # (Auto) 0.1, [...] Sodium 139, Potassium 3.9, Chloride 101, Carbon Cmsohkv77.4, BUN 8 L, Creatinine 0.81, Est GFR [...] % (Auto) 79.8, Lymph % (Auto) 9.6, Giles % (Auto) 9.1, Eos % (Auto)1.1, Baso % (Auto) 0.4, Neut # (Auto) 10.3 H, Lymph # (Auto) 1.2, Giles # (Auto) 1.2 H, Eos # (Auto) 0.1, Baso # (Auto) 0.1, Nucleated RBC % (auto) 0.0 12/09/21 08:35: Urine Color Yellow, Urine Appearance Cloudy A, Urine pH 5.5, Ur Specific [place] 1.030, Urine Protein Negative, Urine Glucose (UA) [...] <Electronically signed by DO Walter Montgomery> 12/11/21 [facility] Work Phone: [phone] Progress note Author Arleen Stephen [facility] December 11, 2021 1:33pmNote Date/TimeAugust 2021 1:30[place] [address] Hospitalist Progress Note Signed Patient: Taye Gay MR#: [id number] : 1955 Acct:[id number] Age/Sex: 66 / F Adm Date: 2 Loc: Room: [address] [place] [address] Type: ADM INOo Attending Dr: Arleen Stephen [...] Tablet. PO 12/10/22 08:59 81 mg DAILY [facility] Administration Atorvastatin Calcium 10 mg 12/10/21 09:00 12/11/21 08:00 Atorvastatin 10 Mg Tablet PO 12/10/22 08:59 10 mg DAILY [facility] Administration Dextrose 0 gm 12/09/21 11:19 Dextrose 50% In Water 25 Gm/50 Ml Syringe IV-PUSH 12/09/22 11:18 PRN PRN Hypoglycemia Enoxaparin Sodium 40 mg 12/10/21 10:00 12/11/21 09:19 Enoxaparin 40 Mg/0.4 Ml Syringe SUBCUT 12/10/22 09:59 Not Given DAILY@10 [facility] Glucose 0 gm 12/09/21 11:19 Dextrose 40% [...] 10:30 12/11/21 10:15 Rocephin IV Infused Q24H [facility] Infusion Insulin Aspart 0 units 12/09/21 12:00 12/11/21 11:33 Insulin Aspart 300 Units/3 Ml Insuln.Pen SUBCUT 12/09/22 11:59 3 units TID.WM.HS [facility] Administration Protocol Nortriptyline HCl 50 mg 12/09/21 21:00 12/11/21 08:00 Nortriptyline 25 Mg Capsule PO 12/09/22 20:59 50 mg BID [facility] Administration Omeprazole 20 mg 12/10/21 09:00 12/11/21 08:00 Omeprazole 20 Mg Capsule.Dr PO 12/10/22 08:59 20 mg DAILY [facility] Administration Ondansetron HCl 4 mg 12/09/21 11:19 Ondansetron 4 Mg/2 Ml Vial IV-PUSH 12/09/22 11:18 Q8H PRN Nausea And Vomiting Pioglitazone HCl 15 mg 12/10/21 09:00 12/11/21 08:00 Pioglitazone 15 Mg Tablet PO 12/10/22 08:59 15 mg DAILY [facility] Administration Potassium Chloride 40 meq 12/09/21 11:19 Potassium Chloride Er 20 Meq Tab.Er.Prt PO 12/09/22 11:18 DAILY PRN Hypokalemia Sodium Chloride 0 ml 12/09/21 07:00 12/10/21 18:24 Sodium Chloride 0.9 % 10 Ml Syringe IV-PUSH 12/09/22 06:59 10 ml PRN PRN Administration Flush Temazepam 30 mg 12/09/21 22:00 12/10/21 21:14 Temazepam 15 Mg Capsule PO 12/09/22 21:59 30 mg QHS [facility] Administration Tramadol HCl 50 mg 12/09/21 11:19 [...] by Arleen Stephen MD> 12/11/21 1333 [facility] Work Phone: [phone] 707-333408-14-2022 Progress note Author Arleen Stephen [facility] December 10, 2021 11:26amNote Date/TimeAugust 2021 11:26[place] [id number] Hospitalist Progress Note Signed Patient: Taye Gay MR#: [id number] : 1955 Acct:[id number] Age/Sex: 66 / F Adm Date: 2 Loc: 3T Room: [address] [place] [address] Type: ADM IN Attending Dr: Arleen Stephen [...] Tablet.Dr PO 12/10/22 08:59 81 mg DAILY [facility] Administration Atorvastatin Calcium 10 mg 12/10/21 09:00 12/10/21 08:43 Atorvastatin 10 Mg Tablet PO 12/10/22 08:59 10 mg DAILY [facility] Administration Dextrose 0 gm 12/09/21 11:19 Dextrose 50% In Water 25 Gm/50 Ml Syringe IV-PUSH 12/09/22 11:18 PRN PRN Hypoglycemia Enoxaparin Sodium 40 mg 12/10/21 10:00 12/10/21 09:00 Enoxaparin 40 Mg/0.4 Ml Syringe SUBCUT 12/10/22 09:59 Not Given DAILY@10 [facility] Glucose 0 gm 12/09/21 11:19 Dextrose 40% Gel 15 Gm Tube PO 12/09/22 11:18 PRN PRN Hypoglycemia Hydralazine HCl 10 mg 12/09/21 11:19 Hydralazine 20 Mg/Ml Vial IV-PUSH 12/09/22 11:18 Q4H PRN Hypertension Sodium Chloride 1,000 mls @ 75 mls/hr 12/09/21 11:30 12/10/21 09:59 0.9% Sodium Chloride 1,000 Ml IV 12/09/22 11:29 75 mls/hr .[id number] [facility] Administration Ceftriaxone Sodium 1 gm in 50 mls @ 100 mls/hr 12/10/21 10:30 12/10/21 09:59 Rocephin IV 100 mls/hr Q24H [facility] Administration Insulin Aspart 0 units 12/09/21 12:00 12/10/21 11:21 Insulin Aspart 300 Units/3 Ml Insuln.Pen SUBCUT 12/09/22 11:59 7 units TID.WM.HS [facility] Administration Protocol Morphine Sulfate 1 mg 12/09/21 17:48 12/10/21 08:41 Morphine Sulfate 2 Mg/Ml Vial IV-PUSH 1 mg Q4H PRN Administration pain Nortriptyline HCl 50 mg 12/09/21 21:00 12/10/21 08:43 Nortriptyline 25 Mg Capsule PO 12/09/22 20:59 50 mg BID [facility] Administration Omeprazole 20 mg 12/10/21 09:00 12/10/21 08:43 Omeprazole 20 Mg Capsule.Dr PO 12/10/22 08:59 20 mg DAILY [facility] Administration Ondansetron HCl 4 mg 12/09/21 11:19 Ondansetron 4 Mg/2 Ml Vial IV-PUSH 12/09/22 11:18 Q8H PRN Nausea And Vomiting Pioglitazone HCl 15 mg 12/10/21 09:00 12/10/21 08:43 Pioglitazone 15 Mg Tablet PO 12/10/22 08:59 15 mg DAILY [facility] Administration Potassium Chloride 40 meq 12/09/21 11:19 Potassium Chloride Er 20 Meq Tab.Er.Prt PO 12/09/22 11:18 DAILY PRN Hypokalemia Sodium Chloride 0 ml 12/09/21 07:00 12/10/21 08:41 Sodium Chloride 0.9 % 10 Ml Syringe IV-PUSH 12/09/22 06:59 10 ml PRN PRN Administration Flush Temazepam 30 mg 12/09/21 22:00 12/09/21 21:17 Temazepam 15 Mg Capsule PO 12/09/22 21:59 30 mg QHS [facility] Administration Tramadol HCl 50 mg 12/09/21 11:19 [...] by Arleen Stephen MD> 12/10/21 1126 [facility] Work Phone: [phone] 950-296108-13-2022 History and physical note Author Arleen Stephen [facility] December 09, 2021 11:38amNote Date/TimeAugust 2021 11:38[place] [address] Hospitalist H&P Signed Patient: Taye Gay MR#: [id number] : 1955 Acct:[id number] Age/Sex: 66 / F Adm Date: 2 Loc: ER Room: Type: [facility] ER Attending Dr: Copies to: NON STAFF [...] 100 unit/mL [facility] 1 sliding [...] % (Auto) 9.6 % (.) 12/09/21 08:50 Giles % (Auto) 9.1 % (.) 12/09/21 08:50 Eos % (Auto) 1.1 % (.) 12/09/21 08:50 Baso % (Auto) 0.4 % (.) 12/09/21 08:50 Neut # (Auto) 10.3 x10E3/uL (1.8-7.7) H 12/09/21 08:50 Lymph # (Auto) 1.2 x10E3/uL (1.00-4.8) 12/09/21 08:50 Giles # (Auto) 1.2 x10E3/uL (0.0-0.8) H 12/09/21 [...] pH 5.5 (5.0-9.0) 12/09/21 08:35 Ur Specific [place] 1.030 (1.001-1.030) 12/09/21 08:35 Urine Protein Negative [...] signed by Arleen Stephen MD> 12/09/21 [address] [facility] Work Phone: 1(585) 657-983206-16-2022 Evaluation note* Encounter Date Diagnosis Assessment Notes Treatment Notes Treatment Clinical Notes Sep, Medicare annual wellness visit, initial (ICD-10 - Z00.00) Personalized health advice was given to the beneficiary including a written plan for screenings discussed and provided. Advanced care planning reviewed and/or information given as requested. The above visit was performed by Loren Denise LPN IV-CC, under direct supervision of Dr. Crispin [...] to get her started back on this. [employer] Other 03-14-2022 Evaluation note* Encounter Date Diagnosis Assessment Notes Treatment Notes Treatment Clinical Notes Jun, Type 2 diabetes mellitus with hy perglycemia (ICD-10 - E11.65) Managing type 2 diabetes material was published 1. Controlled, Type 2 diabetes with A1c 6% 2. Blood glucose levels improved. According to [employer] [facility]gm download 06/26/2021- 07/09/2021: Avg glucose 132. [...] foot (ICD-10 - L84) f/u with Dr. iLmon [employer] Other 03-07-2022 Evaluation note* Encounter Date Diagnosis [...] apnea would also be evaluated if needed [employer] Other 01-10-2022 Evaluation note* Encounter Date Diagnosis [...] not at all interested in any vaccines. [employer] Other 12-14-2021 Evaluation note* Encounter Date Diagnosis Assessment Notes Treatment Notes Treatment Clinical Notes Mar, Type 2 diabetes mellitus with hy perglycemia (ICD-10 - E11.65) [employer] Other 12-06-2021 Evaluation note* Encounter Date Diagnosis [...] going to discharge her from my office. 06 Dec, 2021Pain in left leg (ICD-10 - M79.605) [employer] Other 11-29-2021 Evaluation note* Encounter Date Diagnosis Assessment Notes Treatment Notes Treatment Clinical Notes Feb, Type 2 diabetes mellitus with hy perglycemia (ICD-10 - E11.65) Managing type 2 diabetes material was published 1. Controlled, Type 2 diabetes with A1c 6.9% 2. Blood glucose levels according to [employer] [facility] download 03/14/2021-03/27/2021: Avg glucose 167. >250-5%, [...] eating on a budget material was published [employer] Other 11-01-2021 Evaluation note* Encounter Date Diagnosis [...] in her feet sounds neurologic in origin. [employer] Other Chief complaint+Reason for visit Narrative* Reason for Visit [id number] Dietary counseling and surveillance Hyperlipidemia Hypertension Insulin long-term use Peripheral neuropathy Type 2 diabetes mellitus Vitamin B 12 deficiency [facility] Work Phone: Consult note Author Walter Montgomery [facility] December 11, 2021 3:18pmNote Date/TimeAugust 2021 3:18pm[place] [address] General Surgery Consult Note Signed Patient: Taye Gay MR#: [id number] : 1955 Acct:[id number] Age/Sex: 66 / F Adm Date: 2 Loc: Room: [address] [place] [address] Type: ADM INOo Attending Dr: Arleen Stephen [...] 81 Mg Tablet.) 81 mg PO DAILY [facility] Stop: 12/10/22 08:59 Last Admin: 12/11/21 08:00 Dose: 81 mg Atorvastatin Calcium (Atorvastatin 10 Mg Tablet) 10 mg PO DAILY [facility] Stop: 12/10/22 08:59 Last Admin: 12/11/21 08:00 Dose: 10 mg Dextrose (Dextrose 50% In Water 25 Gm/50 Ml Syringe) 0 gm IV-PUSH PRN PRN PRN Reason: Hypoglycemia Stop: 12/09/22 11:18 Enoxaparin Sodium (Enoxaparin 40 Mg/0.4 Ml Syringe) 40 mg SUBCUT DAILY@10 [facility] Stop: 12/10/22 09:59 Last Admin: 12/11/21 [...] 50 mls @ 100 mls/hr IV Q24H [facility] Last Infusion: 12/11/21 10:15 Dose: Infused Insulin Aspart (Insulin Aspart 300 Units/3 Ml Insuln.Pen) 0 units SUBCUT TID.WM.HS [facility]; Protocol Stop: 12/09/22 11:59 Last Admin: 12/11/21 11:33 Dose: 3 units Nortriptyline HCl (Nortriptyline 25 Mg Capsule) 50 mg PO BID [facility] Stop: 12/09/22 20:59 Last Admin: 12/11/21 08:00 Dose: 50 mg Omeprazole (Omeprazole 20 Mg Capsule.Dr) 20 mg PO DAILY [facility] Stop: 12/10/22 08:59 Last Admin: 12/11/21 08:00 Dose: 20 mg Ondansetron HCl (Ondansetron 4 Mg/2 Ml Vial) 4 mg IV-PUSH Q8H PRN PRN Reason: Nausea And Vomiting Stop: 12/09/22 11:18 Pioglitazone HCl (Pioglitazone 15 Mg Tablet) 15 mg PO DAILY [facility] Stop: 12/10/22 08:59 Last Admin: 12/11/21 [...] 15 Mg Capsule) 30 mg PO QHS [place] Stop: 12/09/22 21:59 Last Admin: 12/10/21 21:14 [...] % (Auto) 66.8, Lymph % (Auto) 21.0, Giles % (Auto) 9.2, Eos % (Auto) 2.6, Baso % (Auto) 0.4, Neut # (Auto) 4.1, Lymph # (Auto) 1.3, Giles # (Auto) 0.6, Eos# (Auto) 0.2, Baso # (Auto) 0.0, Nucleated RBC % (auto) 0.1 12/11/21 11:05: POC Glucose 195 12/11/21 06:58: POC Glucose 172 12/10/21 21:10: POC Glucose 249 12/10/21 16:18: POC Glucose 176 12/10/21 11:20: POC Glucose 268 12/10/21 06:50: PHA Creatinine Clear 75.03, Sodium 139, Potassium 4.0, Chloride 107, Carbon Vxquxhc39.2, BUN 8 L, Creatinine 0.86, Est GFR ( Amer) > 60,Est GFR (Non-Af Amer) > 60, Glucose 153 H, Calcium 8.8 12/10/21 06:50: Corrected WBC 7.4, Uncorrected WBC Count 7.4, RBC 4.38, Hgb 14.0, Hct 41.5, MCV 94.9, MCH 32.0, MCHC 33.7, RDW 13.1, Plt Count 141 L D, MPV 9.3, Neut % (Auto) 63.3, Lymph % (Auto) 24.1, Giles % (Auto) 10.5, Eos % (Auto) 1.8, Baso % (Auto) 0.3, Neut # (Auto) 4.7, Lymph # (Auto) 1.8, Giles # (Auto) 0.8, Eos # (Auto) 0.1, [...] Sodium 139, Potassium 3.9, Chloride 101, Carbon Ssafgbb11.4, BUN 8 L, Creatinine 0.81, Est GFR [...] % (Auto) 79.8, Lymph % (Auto) 9.6, Giles % (Auto) 9.1, Eos % (Auto)1.1, Baso % (Auto) 0.4, Neut # (Auto) 10.3 H, Lymph # (Auto) 1.2, Giles # (Auto) 1.2 H, Eos # (Auto) 0.1, Baso # (Auto) 0.1, Nucleated RBC % (auto) 0.0 12/09/21 08:35: Urine Color Yellow, Urine Appearance Cloudy A, Urine pH 5.5, Ur Specific [place] 1.030, Urine Protein Negative, Urine Glucose (UA) [...] <Electronically signed by DO Walter Montgomery> 12/11/21 2190 [facility] Work Phone: Consult note Author Teresa Strong [facility] December 11, 2021 9:25pmNote Date/TimeAugust 2021 8:10pm[place] [id number] Urology Consult Note Signed Patient: Taye Gay MR#: [id number] : 1955 Acct:[id number] Age/Sex: 66 / F Adm Date: 2 Loc: Room: [address] [place] [address] Type: ADM INOo Attending Dr: Arleen Stephen [...] Neut % (Auto) 66.8, Lymph % (Auto) 21.0,Giles % (Auto) 9.2, Eos % (Auto) 2.6, Baso % (Auto) 0.4, Neut # (Auto) 4.1, Lymph # (Auto) 1.3, Giles# (Auto) 0.6, Eos # (Auto) 0.2, Baso # (Auto) 0.0, Nucleated RBC % (auto) 0.1 12/11/21 11:05: POC Glucose 195 12/11/21 06:58: POC Glucose 172 12/10/21 21:10: POC Glucose 249 12/10/21 16:18: POC Glucose 176 12/10/21 11:20: POC Glucose 268 12/10/21 06:50: PHA Creatinine Clear 75.03, Sodium 139, Potassium 4.0, Chloride 107, Carbon Kzgmoxy56.2, BUN 8 L, Creatinine 0.86, Est GFR ( Amer) > 60,Est GFR (Non-Af Amer) > 60, Glucose 153 H, Calcium 8.8 12/10/21 06:50: Corrected WBC 7.4, Uncorrected WBC Count 7.4, RBC 4.38, Hgb 14.0, Hct 41.5, MCV 94.9, MCH 32.0, MCHC 33.7, RDW 13.1, Plt Count 141 L D, MPV 9.3, Neut % (Auto) 63.3, Lymph % (Auto) 24.1, Giles % (Auto) 10.5, Eos % (Auto) 1.8, Baso % (Auto) 0.3, Neut # (Auto) 4.7, Lymph # (Auto) 1.8, Giles # (Auto) 0.8, Eos # (Auto) 0.1, [...] signed by Teresa Strong MD> 12/11/212124 [facility] Work Phone: Consult note Author Lit Clark [facility] HospitalNote Date/TimeJanuary 2024 11:07am [place] [id number] Neurology Consult Note Signed Patient: Taye Gay MR#: [id number] : 1955 Acct:[id number] Age/Sex: 68 / F Adm Date: 4 Loc: 3T Room: [address] [place] [address] Type: ADM IN Attending Dr: Priscilla Lang MD Copies to: DO Sandra Garrido DO Rafik Massouh, MD~ HPI Consult Date: 04/29/24 [employer]: Lit Clark DO Reason for consult: Slurred [...] unless noted below or in HPI [facility] Medical History BMI 32.0-32.9,adult Abnormal thyroid blood [...] (Stool Softener) 100 mg PO DAILY PRN vnihwuzfnfkv56/14/24 [History Confirmed 04/28/24] multivitamin 1 tab PO DAILY 06/12/23 [History Confirmed 04/28/24] pen needle, diabetic [Sure-Fine Pen [place]] 06/12/23 [History Confirmed 04/28/24] metformin 500 mg [...] Oz Bowling M.D.04/28/2024 9:46 PM Dictation Location: [place] [address] 04/28/24 19:44 IMPRESSION: No acute intracranial pathology. No evidence of focal stenosis, aneurysmal dilatation, dissection or occlusion. Impression dictated by: Oz Bowling M.D.04/28/2024 9:44 PM Dictation Location: [place] [address] Assessment/Plan (1) Atrial fibrillation: Qualifiers: Atrial fibrillation [...] may be metabolic in nature and not freight representative necessarily of transient ischemia or of [...] follow. Documented By: Lit Clark DO [id number] Signed By: <Electronically signed by Lit Clark DO> 04/29/24 1101 [facility] Work Phone: Discharge summary Author Wilmer Vance [facility] December 13, 2021 1:58pmNote Date/TimeAugust 2021 1:58[place] [address] Discharge Summary Signed Patient: Taye Gay MR#: [id number] : 1955 Acct:[id number] Age/Sex: 66 / F Adm Date: 2 Loc: 3T Room: [address] [place] [address]: Wilmer Vance MD Copies to: ObMD Corinna Dukes William L. DO~ Providers Date of Discharge: [...] Sodium 137, Potassium 4.4, Chloride 105, Carbon Nqtpeus10.6, BUN 12, Creatinine 0.75, Est GFR ( Amer) > 60, Est GFR (Non-Af Amer) > 60, TotalBilirubin 0.7, Direct Bilirubin 0.2, Indirect Bilirubin 0.5 12/13/21 05:58: Corrected WBC 9.4, Uncorrected WBC Count 9.4, RBC 4.41, Hgb 14.2, Hct 41.9, MCV 95.1, MCH 32.2, MCHC 33.9, RDW 12.9, Plt Count 178, MPV 9.3,Neut % (Auto) 90.4, Lymph % (Auto) 7.7, Giles % (Auto) 1.8, Eos % (Auto) 0.0, Baso % (Auto) 0.1, Neut # (Auto) 8.5 H, Lymph # (Auto) 0.7 L, Giles# (Auto) 0.2,Eos # (Auto) 0.0, Baso # [...] scheduled appointment Instructions: Cholecystectomy, Laparoscopic Surgery, Acetaminophen, Cefuroxime,[facility] C[facility] at Home [...] <Electronically signed by Wilmer Vance MD> 12/13/21 5480 [facility] Work Phone: Discharge summary Author Elva Florian [facility] September 15, 2023 1:17amNote Date/TimeMay 2023 2:20pm[place] [address] Discharge Summary Signed Patient: Taye Gay MR#: [id number] : 1955 Acct:[id number] Age/Sex: 67 / F Adm Date: 4 Loc: Room: [address] [place] [address]: Elva Florian MD Copies to: [...] .Route (DME) pen needle, diabetic [Sure-Fine Pen [place]] .Route (DME) FreeStyle Brent 14 Day Sensor [...] signed by Elva Florian MD> 09/15/23 0117 [facility] Work Phone: Discharge summary Author Priscilla Lang [facility] Hospital[facility] Date/TimeJanuary 2024 10:28am [address] [place] [address] Discharge Summary Signed Patient: Taye Gay MR#: [id number] : 1955 Acct:[id number] Age/Sex: 68 / F Adm Date: 4 Loc: 3T Room: [address] [place] [address]: Priscilla Lang MD Copies to: DO Priscilla Daniels MD~ Providers Date of Discharge: 04/30/24 Discharging Provider: Priscilla Lang Primary Care Provider: Sandra Keita Consults: 04/29/24 06:29 Consult to Neurology Routine Comment: Consulting Provider: Lti Clark Reason For Exam: TIA on ASA/DOAC [...] taking multiple medications that could potentially cause CRNA side effect and toxic encephalopathy. Diagnosis is [...] polypharmacy regimen to reduce her risk of CRNA side effects or drug?drug interaction.At this time, [...] ask her primary care doctor to obtain [facility] record entirely to address abnormalities [...] constipation) (DME) pen needle, diabetic [Sure-Fine Pen [place]] .Route lidocaine 5 % ointment 1 applic [...] % (Auto) 63.5, Lymph % (Auto) 24.9, Giles % (Auto) 8.3, Eos % (Auto) 2.9, Baso % (Auto) 0.4, Nucleat RBC Rel Count 0.0, Neut # (Auto) 4.6, Lymph # (Auto) 1.8, Giles # (Auto) 0.6, Eos # (Auto) 0.2, [...] by Priscilla Lang MD> 04/30/24 1028 [facility] Work Phone: evaluation noteNo When[facility] [employer] Other Evaluation note* Diagnosis Onset Date Resolution Status Cholelithiasis acuteEmphysematous cystitisacutePyelonephritisacuteRight lateral abdominal pain acute [facility] Work Phone: evaluation noteNo assessment information available [facility] Work Phone: Evaluation note* Diagnosis Onset Date Resolution Status [id number] acuteDietary counseling and surveillanceacuteHyperlipidemiaacuteHypertension acuteInsulin long-term useacutePeripheral neuropathyacuteType 2 diabetes mellitusacuteVitamin B 12 deficiencyacute [facility] Work Phone: Evaluation note* Diagnosis Onset Date Resolution Status BMI 28.0-28.9,adult [id number]-[id number] counseling and surveillanceacute HyperlipidemiaacuteHypertensionacuteInsulin long-term useacutePeripheral neuropathyacuteType 2 diabetes mellitusacuteVitamin B 12 deficiencyacute [facility] Work Phone: Evaluation note* Diagnosis Onset Date Resolution Status BMI 28.0-28.9,adult oewiqGHX-SWIR-[id number] counseling and surveillanceacute HyperlipidemiaacuteHypertensionacuteInsulin long-term useacutePeripheral neuropathyacuteType 2 diabetes mellitusacuteVitamin B 12 deficiencyacute DizzinessacuteHypertensionacutePrimary insomniaacuteType 2 diabetes mellitus acute [facility] Work Phone: Evaluation note* Diagnosis Onset Date Resolution Status BMI 28.0-28.9,adult bppcyEFL-TFZD-[id number] counseling and surveillanceacute HyperlipidemiaacuteHypertensionacuteInsulin long-term useacutePeripheral neuropathyacuteType 2 diabetes mellitusacuteVitamin B 12 deficiencyacute DizzinessacuteHypertensionacutePrimary insomniaacuteType 2 diabetes mellitus acutePAD (peripheral artery disease)[facility] Work Phone: Evaluation note* Diagnosis Onset Date Resolution Status PAD (peripheral artery disease) acuteBMI 28.0-28.9,feixbzfcizDKR-DPKS-[id number] counseling and surveillanceacuteHyperlipidemiaacuteHypertensionacutePeripheral neuropathyacute TachycardiaacuteType 2 diabetes mellitusacuteVitamin B 12 deficiencyacuteAtrial flutter with rapid ventricular responseacuteChest painacuteHyperlipidemiaacute HypertensionacuteNew onset atrial flutteracuteType 2 diabetes mellitusHocking Valley Community Hospital Work Phone: Evaluation note* Diagnosis Onset Date Resolution Status PAD (peripheral artery disease) acuteBMI 28.0-28.9,zxhpwerqcqLSG-RTLK-[id number] counseling and surveillanceacuteHyperlipidemiaacuteHypertensionacutePeripheral neuropathyacute TachycardiaacuteType 2 diabetes mellitusacuteVitamin B 12 deficiencyacuteAtrial flutter with rapid ventricular responseacuteChest painacuteHyperlipidemiaacute HypertensionacuteNew onset atrial flutteracuteType 2 diabetes mellitusacuteNew onset atrial flutteracuteMobility impairednoneactive [facility] Work Phone: Evaluation note* Diagnosis Typical atrial flutter (Multi) Nonischemic cardiomyopathy (Multi) Other primary cardiomyopathies Hypertension, unspecified type Hypercholesteremia Pure hypercholesterolemia Smoker Tobacco use disorder Type 2 diabetes mellitus with other specified complication, unspecified whether middle or intermediate school principal insulin use (Multi) BMI 28.0-28.9,adult documented in this encounter [facility] Work Phone: Evaluation note* Diagnosis Onset Date Resolution Status BMI 28.0-28.9,adult frtorVZQ-EOGO-[id number] counseling and surveillanceacute HyperlipidemiaacuteHypertensionacutePeripheral neuropathyacuteTachycardiaacute Type 2 diabetes mellitusacuteVitamin B 12 deficiencyacuteHyperlipidemiaacute HypertensionacuteNew onset atrial flutteracuteType 2 diabetes mellitusacute Atrial flutter with rapid ventricular responseresolvedChest painresolvedHospital discharge follow-upacuteNew onset atrial flutteracutePrimary insomniaacuteType 2 diabetes mellitusacuteMobility impairednoneactive [facility] Work Phone: Evaluation note* Diagnosis Onset Date Resolution Status BMI 28.0-28.9,adult zuiynXHI-[id number] counseling and surveillanceacute HyperlipidemiaacuteHypertensionacutePeripheral neuropathyacuteTachycardiaacute Type 2 diabetes mellitusacuteVitamin B 12 deficiencyacuteHyperlipidemiaacute HypertensionacuteNew onset atrial flutteracuteType 2 diabetes mellitusacute Atrial flutter with rapid ventricular responseresolvedChest painresolvedHospital discharge follow-upacuteNew onset atrial flutteracutePrimary insomniaacuteType 2 diabetes mellitusacuteMobility impairednoneactiveAmbulatory dysfunctionacute HypomagnesemiaacuteHypothyroidacuteType 2 diabetes mellitus with hyperglycemia acuteWeakWilson [facility] Work Phone: Evaluation note* Diagnosis Onset Date Resolution Status BMI 28.0-28.9,adult [id number]-CKMN-[id number] counseling and surveillanceacute HyperlipidemiaacuteHypertensionacutePeripheral neuropathyacuteTachycardiaacute Type 2 diabetes mellitusacuteVitamin B 12 deficiencyacuteHyperlipidemiaacute HypertensionacuteNew onset atrial flutteracuteType 2 diabetes mellitusacute Atrial flutter with rapid ventricular responseresolvedChest painresolvedHospital discharge follow-upacuteNew onset atrial flutteracutePrimary insomniaacuteType 2 diabetes mellitusacuteMobility impairednoneactiveAmbulatory dysfunctionacute HypomagnesemiaacuteHypothyroidacuteType 2 diabetes mellitus with hyperglycemia acuteVitamin B 12 deficiencyacuteWeak[facility] Work Phone: Evaluation note* Diagnosis Onset Date Resolution Status BMI 28.0-28.9,adult onlizFRS-FZKW-[id number] counseling and surveillanceacute HyperlipidemiaacuteHypertensionacutePeripheral neuropathyacuteTachycardiaacute Type 2 diabetes mellitusacuteVitamin B 12 deficiencyacuteHyperlipidemiaacute HypertensionacuteNew onset atrial flutteracuteType 2 diabetes mellitusacute Atrial flutter with rapid ventricular responseresolvedChest painresolvedHospital discharge follow-upacuteNew onset atrial flutteracutePrimary insomniaacuteType 2 diabetes mellitusacuteMobility impairednoneactiveAmbulatory dysfunctionacute HypomagnesemiaacuteHypothyroidacuteType 2 diabetes mellitus with hyperglycemia acuteVitamin B 12 deficiencyacuteWeakterre haute regional hospitalacuteBMI 28.0-28.9,adultacute [id number] counseling and surveillanceacuteHyperlipidemia acuteHypertensionacutePeripheral neuropathyacuteType 2 diabetes mellitusacute Vitamin B 12 deficiencyacute [facility] Work Phone: Evaluation note* Diagnosis Onset Date Resolution Status BMI 28.0-28.9,adult weqtlENC-AYMO-[id number] counseling and surveillanceacute HyperlipidemiaacuteHypertensionacutePeripheral neuropathyacuteTachycardiaacute Type 2 diabetes mellitusacuteVitamin B 12 deficiencyacuteHyperlipidemiaacute HypertensionacuteNew onset atrial flutteracuteType 2 diabetes mellitusacute Atrial flutter with rapid ventricular responseresolvedChest painresolvedHospital discharge follow-upacuteNew onset atrial flutteracutePrimary insomniaacuteType 2 diabetes mellitusacuteMobility impairednoneactiveAmbulatory dysfunctionacute HypomagnesemiaacuteHypothyroidacuteType 2 diabetes mellitus with hyperglycemia acuteVitamin B 12 deficiencyacuteWebanneracuteAbnormal thyroid blood testacute BMI 28.0-28.9,vmtqnaxiwtQCN-JQOO-[id number] counseling and surveillanceacuteHyperlipidemiaacuteHypertensionacutePeripheral neuropathyacute Type 2 diabetes mellitusacuteVitamin B 12 deficiency[facility] Work Phone: Evaluation note* Diagnosis Onset Date Resolution Status BMI 28.0-28.9,adult ammglOFW-NXKN-[id number] counseling and surveillanceacute HyperlipidemiaacuteHypertensionacutePeripheral neuropathyacuteTachycardiaacute Type 2 diabetes mellitusacuteVitamin B 12 deficiencyacuteHyperlipidemiaacute HypertensionacuteNew onset atrial flutteracuteType 2 diabetes mellitusacute Atrial flutter with rapid ventricular responseresolvedChest painresolvedHospital discharge follow-upacuteNew onset atrial flutteracutePrimary insomniaacuteType 2 diabetes mellitusacuteMobility impairednoneactiveAmbulatory dysfunctionacute HypomagnesemiaacuteHypothyroidacuteType 2 diabetes mellitus with hyperglycemia acuteVitamin B 12 deficiencyacuteWeaknessacuteAbnormal thyroid blood testacute BMI 28.0-28.9,crutjvtseuHJJ-HPGK-[id number] counseling and surveillanceacuteHyperlipidemiaacuteHypertensionacutePeripheral neuropathyacute Type 2 diabetes mellitusacuteVitamin B 12 deficiencyacuteHospital discharge follow-upacuteHypomagnesemiaacute [facility] Work Phone: Evaluation note* Diagnosis Onset Date Resolution Status Ambulatory dysfunction acuteHypomagnesemiaacuteHypothyroidacuteType 2 diabetes mellitus with hyperglycemiaacuteVitamin B 12 deficiencyacuteWeaknessacuteAbnormal thyroid blood testacuteBMI 28.0-28.9,trhnmfebfgGFB-KEJP-[id number] counseling and surveillanceacuteHyperlipidemiaacuteHypertensionacutePeripheral neuropathy acuteType 2 diabetes mellitusacuteVitamin B 12 deficiencyacuteHospital discharge follow-upacuteHypomagnesemiaacute [facility] Work Phone: Evaluation note* Diagnosis Ulcer of right foot, limited to breakdown of skin (CMS/HCC)- Primary Blister of right foot, subsequent encounter 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) [facility]* Diagnosis Onset Date Resolution Status Ambulatory dysfunction acuteHypomagnesemiaacuteHypothyroidacuteType 2 diabetes mellitus with hyperglycemiaacuteVitamin B 12 deficiencyacuteWeaknessacuteAbnormal thyroid blood testacuteBMI 28.0-28.9,doftpzporsNGG-ZPDJ-[id number] counseling and surveillanceacuteHyperlipidemiaacuteHypertensionacutePeripheral neuropathy acuteType 2 diabetes mellitusacuteVitamin B 12 deficiencyacuteHospital discharge follow-upacuteHypomagnesemiaacuteWeakterre haute regional hospitalacute [facility] Work Phone: Evaluation note* Diagnosis Leg pain, [...] layer exposed (CMS/HCC) documented in this encounter [facility] HealthcareEvaluation note* Diagnosis Leg pain, bilateral- [...] syndrome B12 deficiency documented in this encounter [facility] HealthcareEvaluation note* Diagnosis Hypertension, unspecified type Typical atrial flutter (Multi) documented in this encounter [facility] Work Phone: Evaluation note* Diagnosis Lumbosacral radiculopathy at S1- Primary Neurogenic pain Cervical paraspinal muscle spasm Spasm of muscle Lumbar paraspinal muscle spasm Other symptoms referable to back Carpal tunnel syndrome, bilateral Carpal tunnel syndrome B12 deficiency documented in this encounter [facility] HealthcareEvaluation note* Diagnosis Nonischemic cardiomyopathy (Multi)- Primary Other primary cardiomyopathies Typical atrial flutter (Multi) Hypercholesteremia Pure hypercholesterolemia Primary hypertension Unspecified essential hypertension Current smoker BMI 28.0-28.9,adult High risk medication use documented in this encounter [facility] Work Phone: Evaluation note* Diagnosis Leg [...] of foot (CMS/HCC) documented in this encounter [facility] HealthcareEvaluation note* Diagnosis High risk medication use- Primary Typical atrial flutter (Multi) Nonischemic cardiomyopathy (Multi) Other primary cardiomyopathies Hypercholesteremia Pure hypercholesterolemia BMI 28.0-28.9,adult BMI 30.0-30.9,adult Current smoker documented in this encounter [facility] Work Phone: Evaluation note* Diagnosis Carpal tunnel syndrome, bilateral- Primary Carpal tunnel syndrome documented in this encounter [facility] HealthcareEvaluation note* Diagnosis Ulcer of right foot, limited to breakdown of skin (CMS/HCC)- Primary Cellulitis of right foot documented in this encounter [facility] HealthcareEvaluation note* Diagnosis Ulcer of right foot, limited to breakdown of skin (CMS/HCC)- Primary Blister of right foot, initial encounter 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) documented in this encounter [facility] HealthcareEvaluation note* Diagnosis Typical atrial flutter (Multi)- Primary Nonischemic cardiomyopathy (Multi) Other primary cardiomyopathies Hypercholesteremia Pure hypercholesterolemia Hypertension, unspecified type BMI 32.0-32.9,adult Current smoker documented in this encounter [facility] Work Phone: Evaluation note* Diagnosis Leg [...] radiculopathy at L5 documented in this encounter [facility] HealthcareEvaluation note* Diagnosis Typical atrial flutter (Multi)- Primary Nonischemic cardiomyopathy (Multi) Other primary cardiomyopathies Hypertension, unspecified type Hypercholesteremia Pure hypercholesterolemia Obesity (BMI 30-39.9) Current smoker documented in this encounter [facility] Work Phone: Evaluation note* Diagnosis Leg [...] of vagina documented in [facility] encounter [facility]* [...] HealthcareHistory and physical note Author Arleen Stephen [facility] December 09, 2021 11:38amNote Date/TimeAugust 2021 11:38[place] [address] Hospitalist H&P Signed Patient: Taye Gay MR#: [id number] : 1955 Acct:[id number] Age/Sex: 66 / F Adm Date: 2 Loc: ER Room: Type: [facility] ER Attending Dr: Copies to: NON STAFF [...] % (Auto) 9.6 % (.) 12/09/21 08:50 Giles % (Auto) 9.1 % (.) 12/09/21 08:50 Eos % (Auto) 1.1 % (.) 12/09/21 08:50 Baso % (Auto) 0.4 % (.) 12/09/21 08:50 Neut # (Auto) 10.3 x10E3/uL (1.8-7.7) H 12/09/21 08:50 Lymph # (Auto) 1.2 x10E3/uL (1.00-4.8) 12/09/21 08:50 Giles # (Auto) 1.2 x10E3/uL (0.0-0.8) H 12/09/21 [...] pH 5.5 (5.0-9.0) 12/09/21 08:35 Ur Specific [place] 1.030 (1.001-1.030) 12/09/21 08:35 Urine Protein Negative [...] signed by Arleen Stephen MD> 12/09/21 1138 [facility] Work Phone: History and physical note Author Jluis Campos [facility] November 10, 2023 6:20amNote Date/TimeJuly 2023 6:11am[place] [id number] Hospitalist H&P Signed Patient: Taye Gay MR#: [id number] : 1955 Acct:[id number] Age/Sex: 67 / F Adm Date: 4 Loc: 4N Room: 5N4236-8 Type: ADM IN Attending Dr: Jluis Campos [...] unless noted below or in HPI [facility] Medical History History of esophageal stricture BMI [...] Confirmed 11/09/23] pen needle, diabetic [Sure-Fine Pen [place]] 06/12/23 [History Confirmed 11/09/23] omeprazole 20 mg [...] weaknesses were noted, patient unable to ambulate. Vrjr-pi-wsnb test was normal. No tremors or ataxia with bekfhq-xr-sdfx movements. Neuro: AOx3, CN II-VII intact. Moves [...] % (Auto) 26.0 % (.) 11/10/23 03:41 Giles % (Auto) 8.2 % (.) 11/10/23 03:41 Eos % (Auto) 3.7 % (.) 11/10/23 03:41 Baso % (Auto) 0.9 % (.) 11/10/23 03:41 Nucleat RBC Rel Count 0.1 /100 WBC (0-0.5) 11/10/23 03:41 Neut # (Auto) 5.2 x10E3/uL (1.8-7.7) 11/10/23 03:41 Lymph # (Auto) 2.2 x10E3/uL (1.00-4.8) 11/10/23 03:41 Giles # (Auto) 0.7 x10E3/uL (0.0-0.8) 11/10/23 03:41 [...] pH 6.0 (5.0-9.0) 11/10/23 05:02 Ur Specific [place] 1.007 (1.001-1.030) 11/10/23 05:02 Urine Protein Negative [...] signed by Jluis Campos DO> 11/10/23 0620 [facility] Work Phone: History and physical note Author Jori Hearn [facility] HospitalNote Date/TimeJanuary 2024 6:39[place] [address] Hospitalist H&P Signed Patient: Taye Gay MR#: [id number] : 1955 Acct:[id number] Age/Sex: 68 / F Adm Date: 4 Loc: Room: [address] [place] [address] Type: ADM IN Attending Dr: Jori Hearn [...] was sent at that time with preliminary OP 1:320 positive. Extensivereflexive antibody titers were sent [...] of dementia, possible Alzheimer's dementia -continue home srkuwnskp98 mg twice daily and donepezil 20 mg daily 12. Atrial fibrillation - continue Eliquis 5 mg twice daily for anticoagulationand carvedilol 12.5 mg twice daily. EKG in ER shows NSR 13. Hypoxia - no respiratory distress or cardiopulmonary complaints to accompany this. Will monitortelemetry and address as needed [facility] Medical History BMI 32.0-32.9,adult Abnormal thyroid blood [...] (Stool Softener) 100 mg PO DAILY PRN qrlaugquhiwq16/14/24 [History Confirmed 04/28/24] multivitamin 1 tab PO DAILY 06/12/23 [History Confirmed 04/28/24] pen needle, diabetic [Sure-Fine Pen [place]] 06/12/23 [History Confirmed 04/28/24] metformin 500 mg [...] % (Auto) 24.6 % (.) 04/28/24 19:54 Giles % (Auto) 7.6 % (.) 04/28/24 19:54 Eos % (Auto) 2.7 % (.) 04/28/24 19:54 Baso % (Auto) 1.1 % (.) 04/28/24 19:54 Nucleat RBC Rel Count 0.2 /100 WBC (0-0.5) 04/28/24 19:54 Neut # (Auto) 6.5 x10E3/uL (1.8-7.7) 04/28/24 19:54 Lymph # (Auto) 2.5 x10E3/uL (1.00-4.8) 04/28/24 19:54 Giles # (Auto) 0.8 x10E3/uL (0.0-0.8) 04/28/24 19:54 [...] pH 5.5 (5.0-9.0) 04/28/24 22:02 Ur Specific [place] 1.038 (1.001-1.030) H 04/28/24 22:02 Urine Protein [...] by Jori Hearn DO> 04/29/24 0639 [facility] Work Phone: History and physical note Author Manjit Gleason [facility] HospitalNote Date/TimeMay 2024 12:41[place] [address] Gastroenterology H&P Signed Patient: Taye Gay MR#: [id number] : 1955 Acct:[id number] Age/Sex: 68 / F Adm Date: 5 Loc: Room: Type: [facility] Attending Dr: Manjit Gleason MD Copies to: [...] signed by Manjit Gleason MD> 09/10/24 1241 [facility] Work Phone: Hisvtpe general Narrative - Reported* Type Description Date Medical History HTN Medical HistoryDiabetesMedical HistoryObesityMedical HistoryHLPMedical History tonsillectomyMedical HistoryhysterectomyMedical HistoryCataracts removed BilateralMedical HistoryUpper eye liftSurgical HistorytonsillectomySurgical HistoryhysterectomySurgical Historycataracts, bilaterallySurgical Historyeye lid surgerySurgical Historyremoved cervix12/2018 [employer] Other History general Narrative - Reported* Type Description Date Medical History HTN Medical HistoryDiabetesMedical HistoryObesityMedical HistoryHLPMedical History tonsillectomyMedical HistoryhysterectomyMedical HistoryCataracts removed BilateralMedical HistoryUpper eye liftSurgical HistorytonsillectomySurgical HistoryhysterectomySurgical Historycataracts, bilaterallySurgical Historyeye lid surgerySurgical Historyremoved cervix2019Hospitalization HistorySee Above [employer] Other History general Narrative - Reported* Type Description Date Medical History HTN Medical HistoryDiabetesMedical HistoryObesityMedical HistoryHLPMedical History tonsillectomyMedical HistoryhysterectomyMedical HistoryCataracts removed BilateralMedical HistoryUpper eye liftSurgical HistorytonsillectomySurgical Historypartial hysterectomySurgical Historycataracts, bilaterallySurgical Historyeye lid surgery--bilateralSurgical Historyremoved cervix12/2018 Hospitalization HistorySee Above [employer] Other History general Narrative - Reported* Type Description Date Medical History HTN Medical HistoryDiabetesMedical HistoryObesityMedical HistoryHLPMedical History tonsillectomyMedical HistoryhysterectomyMedical HistoryCataracts removed BilateralMedical HistoryUpper eye liftSurgical HistorytonsillectomySurgical Historypartial hysterectomySurgical Historycataracts, bilaterallySurgical Historyeye lid surgery--bilateralSurgical Historyremoved cervix12/2018Surgical HistoryCholecystectomyurgical HistoryLeft foot and great toe surgery 12/29/2021Hospitalization HistorySee AboveHospitalization HistoryUTI and gallbladder removal11/2021 [employer] Other Hisurjl general Narrative - Reported* Type Description Date Medical History HTN Medical HistoryDiabetesMedical HistoryObesityMedical HistoryHLPMedical History tonsillectomyMedical HistoryhysterectomyMedical HistoryCataracts removed BilateralMedical HistoryUpper eye liftSurgical HistorytonsillectomySurgical Historypartial hysterectomySurgical Historycataracts, bilaterallySurgical Historyeye lid surgery--bilateralSurgical Historyremoved cervix12/2018Surgical HistoryCholecystectomy12/12/21Surgical HistoryLeft foot and great toe surgery 12/29/2021Hospitalization HistorySee AboveHospitalization HistoryUTI and gallbladder removal11/2021 [employer] Other Hospital [facility] Work Phone: Hospital Discharge instructions[facility] Work Phone: [facility] Dis[facility] instructions[facility] Work Phone: [facility] Discharge instructions[facility] Work Phone: [facility] Discharge instructionsAmbulatory Orders* Initiate Home Health Time [...] - Care to be managed by PCP [facility] Work Phone: Hospital Discharge instructions Additional [...] pharmacist or your primary care provider. Thank you.[facility] Work Phone: Hospital Discharge instructionsAmbulatory Orders* Referral to Pain Management Location: None Selected [facility] Work Phone: Progress note Author Arleen Stephen [facility] December 10, 2021 11:26amNote Date/TimeAugust 2021 11:26[place] [id number] Hospitalist Progress Note Signed Patient: Taye Gay MR#: [id number] : 1955 Acct:[id number] Age/Sex: 66 / F Adm Date: 2 Loc: Room: [address] [place] [address] Type: ADM IN Attending Dr: Arleen Stephen [...] Tablet.Dr PO 12/10/22 08:59 81 mg DAILY [facility] Administration Atorvastatin Calcium 10 mg 12/10/21 09:00 12/10/21 08:43 Atorvastatin 10 Mg Tablet PO 12/10/22 08:59 10 mg DAILY [facility] Administration Dextrose 0 gm 12/09/21 11:19 Dextrose 50% In Water 25 Gm/50 Ml Syringe IV-PUSH 12/09/22 11:18 PRN PRN Hypoglycemia Enoxaparin Sodium 40 mg 12/10/21 10:00 12/10/21 09:00 Enoxaparin 40 Mg/0.4 Ml Syringe SUBCUT 12/10/22 09:59 Not Given DAILY@10 [facility] Glucose 0 gm 12/09/21 11:19 Dextrose 40% Gel 15 Gm Tube PO 12/09/22 11:18 PRN PRN Hypoglycemia Hydralazine HCl 10 mg 12/09/21 11:19 Hydralazine 20 Mg/Ml Vial IV-PUSH 12/09/22 11:18 Q4H PRN Hypertension Sodium Chloride 1,000 mls @ 75 mls/hr 12/09/21 11:30 12/10/21 09:59 0.9% Sodium Chloride 1,000 Ml IV 12/09/22 11:29 75 mls/hr .[id number] [facility] Administration Ceftriaxone Sodium 1 gm in 50 mls @ 100 mls/hr 12/10/21 10:30 12/10/21 09:59 Rocephin IV 100 mls/hr Q24H [facility] Administration Insulin Aspart 0 units 12/09/21 12:00 12/10/21 11:21 Insulin Aspart 300 Units/3 Ml Insuln.Pen SUBCUT 12/09/22 11:59 7 units TID.WM.HS [place] Administration Protocol Morphine Sulfate 1 mg 12/09/21 17:48 12/10/21 08:41 Morphine Sulfate 2 Mg/Ml Vial IV-PUSH 1 mg Q4H PRN Administration pain Nortriptyline HCl 50 mg 12/09/21 21:00 12/10/21 08:43 Nortriptyline 25 Mg Capsule PO 12/09/22 20:59 50 mg BID [facility] Administration Omeprazole 20 mg 12/10/21 09:00 12/10/21 08:43 Omeprazole 20 Mg Capsule. PO 12/10/22 08:59 20 mg DAILY [facility] Administration Ondansetron HCl 4 mg 12/09/21 11:19 Ondansetron 4 Mg/2 Ml Vial IV-PUSH 12/09/22 11:18 Q8H PRN Nausea And Vomiting Pioglitazone HCl 15 mg 12/10/21 09:00 12/10/21 08:43 Pioglitazone 15 Mg Tablet PO 12/10/22 08:59 15 mg DAILY [facility] Administration Potassium Chloride 40 meq 12/09/21 11:19 Potassium Chloride Er 20 Meq Tab.Er.Prt PO 12/09/22 11:18 DAILY PRN Hypokalemia Sodium Chloride 0 ml 12/09/21 07:00 12/10/21 08:41 Sodium Chloride 0.9 % 10 Ml Syringe IV-PUSH 12/09/22 06:59 10 ml PRN PRN Administration Flush Temazepam 30 mg 12/09/21 22:00 12/09/21 21:17 Temazepam 15 Mg Capsule PO 12/09/22 21:59 30 mg QHS [place] Administration Tramadol HCl 50 mg 12/09/21 11:19 [...] <Electronically signed by Arleen Stephen MD> 12/10/211125 [facility] Work Phone: Progress note Author Arleen Stephne [facility] December 11, 2021 1:33pmNote Date/TimeAugust 2021 1:30[place] [address] Hospitalist Progress Note Signed Patient: Taye Gay MR#: [id number] : 1955 Acct:[id number] Age/Sex: 66 / F Adm Date: 2 Loc: Room: [address] [place] [address] Type: ADM INOo Attending Dr: Arleen Stephen [...] Tablet.Dr PO 12/10/22 08:59 81 mg DAILY [place] Administration Atorvastatin Calcium 10 mg 12/10/21 09:00 12/11/21 08:00 Atorvastatin 10 Mg Tablet PO 12/10/22 08:59 10 mg DAILY [place] Administration Dextrose 0 gm 12/09/21 11:19 Dextrose 50% In Water 25 Gm/50 Ml Syringe IV-PUSH 12/09/22 11:18 PRN PRN Hypoglycemia Enoxaparin Sodium 40 mg 12/10/21 10:00 12/11/21 09:19 Enoxaparin 40 Mg/0.4 Ml Syringe SUBCUT 12/10/22 09:59 Not Given DAILY@10 [place] Glucose 0 gm 12/09/21 11:19 Dextrose 40% [...] 10:30 12/11/21 10:15 Rocephin IV Infused Q24H [facility] Infusion Insulin Aspart 0 units 12/09/21 12:00 12/11/21 11:33 Insulin Aspart 300 Units/3 Ml Insuln.Pen SUBCUT 12/09/22 11:59 3 units TID.WM.HS [place] Administration Protocol Nortriptyline HCl 50 mg 12/09/21 21:00 12/11/21 08:00 Nortriptyline 25 Mg Capsule PO 12/09/22 20:59 50 mg BID [facility] Administration Omeprazole 20 mg 12/10/21 09:00 12/11/21 08:00 Omeprazole 20 Mg Capsule.Dr PO 12/10/22 08:59 20 mg DAILY [facility] Administration Ondansetron HCl 4 mg 12/09/21 11:19 Ondansetron 4 Mg/2 Ml Vial IV-PUSH 12/09/22 11:18 Q8H PRN Nausea And Vomiting Pioglitazone HCl 15 mg 12/10/21 09:00 12/11/21 08:00 Pioglitazone 15 Mg Tablet PO 12/10/22 08:59 15 mg DAILY [facility] Administration Potassium Chloride 40 meq 12/09/21 11:19 Potassium Chloride Er 20 Meq Tab.Er.Prt PO 12/09/22 11:18 DAILY PRN Hypokalemia Sodium Chloride 0 ml 12/09/21 07:00 12/10/21 18:24 Sodium Chloride 0.9 % 10 Ml Syringe IV-PUSH 12/09/22 06:59 10 ml PRN PRN Administration Flush Temazepam 30 mg 12/09/21 22:00 12/10/21 21:14 Temazepam 15 Mg Capsule PO 12/09/22 21:59 30 mg QHS [place] Administration Tramadol HCl 50 mg 12/09/21 11:19 [...] by Arleen Stephen MD> 12/11/21 1333 [facility] Work Phone: Progress note Author Walter Strongkarlos [facility] December 12, 2021 8:07amNote Date/TimeAugust 2021 8:07[place] [address] General Surgery Progress Note Signed Patient: Taye Gay MR#: [id number] : 1955 Acct:[id number] Age/Sex: 66 / F Adm Date: 2 Loc: Room: [address] [place] [address] Type: ADM INOo Attending Dr: Arleen Stephen [...] 12/09/21] insulin lispro 100 unit/mL [facility] Insulin lispro) 1 sliding scaledose [...] 81 Mg Tablet.Dr) 81 mg PO DAILY [facility] Stop: 12/10/22 08:59 Last Admin: 12/11/21 08:00 Dose: 81 mg Atorvastatin Calcium (Atorvastatin 10 Mg Tablet) 10 mg PO DAILY [facility] Stop: 12/10/22 08:59 Last Admin: 12/11/21 08:00 Dose: 10 mg Dextrose (Dextrose 50% In Water 25 Gm/50 Ml Syringe) 0 gm IV-PUSH PRN PRN PRN Reason: Hypoglycemia Stop: 12/09/22 11:18 Enoxaparin Sodium (Enoxaparin 40 Mg/0.4 Ml Syringe) 40 mg SUBCUT DAILY@10 [facility] Stop: 12/10/22 09:59 Last Admin: 12/11/21 [...] 50 mls @ 100 mls/hr IV Q24H [facility] Last Infusion: 12/11/21 10:15 Dose: Infused Sodium Chloride (0.9% Sodium Chloride 1,000 Ml) 1,000 mls @ 100 mls/hr IV .[id number] Stop: 12/12/22 00:00 Last Admin: 12/12/21 00:10 Dose: 100 mls/hr Insulin Aspart (Insulin Aspart 300 Units/3 Ml Insuln.Pen) 0 units SUBCUT TID.WM.[facility]ID [facility]; Protocol Stop: 12/09/22 11:59 Last Admin: 12/11/21 21:21 Dose: 3 units Nortriptyline HCl (Nortriptyline 25 Mg Capsule) 50 mg PO BID [facility] Stop: 12/09/22 20:59 Last Admin: 12/11/21 21:20 Dose: 50 mg Omeprazole (Omeprazole 20 Mg Capsule.Dr) 20 mg PO DAILY [facility] Stop: 12/10/22 08:59 Last Admin: 12/11/21 08:00 Dose: 20 mg Ondansetron HCl (Ondansetron 4 Mg/2 Ml Vial) 4 mg IV-PUSH Q8H PRN PRN Reason: Nausea And Vomiting Stop: 12/09/22 11:18 Pioglitazone HCl (Pioglitazone 15 Mg Tablet) 15 mg PO DAILY [facility] Stop: 12/10/22 08:59 Last Admin: 12/11/21 [...] 15 Mg Capsule) 30 mg PO QHS [facility] Stop: 12/09/22 21:59 Last Admin: 12/11/21 [...] 24 hour I&O: Intake & Output 12/11/21 12/12/2122 23:59 07:59 15:59 Intake Total 600 / [...] Neut % (Auto) 66.8, Lymph % (Auto) 21.0,Giles % (Auto) 9.2, Eos % (Auto) 2.6, Baso % (Auto) 0.4, Neut # (Auto) 4.1, Lymph # (Auto) 1.3, Giles# (Auto) 0.6, Eos # (Auto) 0.2, Baso # (Auto) 0.0, Nucleated RBC % (auto) 0.1 12/11/21 11:05: POC Glucose 195 12/11/21 06:58: POC Glucose 172 12/10/21 21:10: POC Glucose 249 12/10/21 16:18: POC Glucose 176 12/10/21 11:20: POC Glucose 268 12/10/21 06:50: PHA Creatinine Clear 75.03, Sodium 139, Potassium 4.0, Chloride 107, Carbon Qnzldru56.2, BUN 8 L, Creatinine 0.86, Est GFR [...] <Electronically signed by DO Walter Montgomery> 12/12/[address] [place] [address] Work Phone: Progress note Author Arleen Stephen [facility] December 12, 2021 1:20pmNote Date/TimeAugust 2021 1:20pm[place] [address] Hospitalist Progress Note Signed Patient: Taye Gay MR#: [id number] : 1955 Acct:[id number] Age/Sex: 66 / F Adm Date: 2 Loc: Room: [address] [place] [address] Type: ADM INOo Attending Dr: Arleen Stephen [...] Tablet. PO 12/10/22 08:59 Not Given DAILY [facility] Atorvastatin Calcium 10 mg 12/10/21 09:00 12/12/21 10:33 Atorvastatin 10 Mg Tablet PO 12/10/22 08:59 Not Given DAILY [facility] Dextrose 0 gm 12/09/21 11:19 Dextrose 50% In Water 25 Gm/50 Ml Syringe IV-PUSH 12/09/22 11:18 PRN PRN Hypoglycemia Enoxaparin Sodium 40 mg 12/10/21 10:00 12/12/21 10:33 Enoxaparin 40 Mg/0.4 Ml Syringe SUBCUT 12/10/22 09:59 Not Given DAILY@10 [facility] Glucose 0 gm 12/09/21 11:19 Dextrose 40% [...] 12/12/21 11:57 Rocephin IV 100 mls/hr Q24H [facility] Administration Sodium Chloride 1,000 mls @ 100 mls/hr 12/12/21 00:00 12/12/21 10:32 0.9% Sodium Chloride 1,000 Ml IV 12/12/22 00:00 100 mls/hr .Q10H [facility] Administration Lactated Ringer's 1,000 mls @ 20 mls/hr 12/12/21 11:14 12/12/21 11:57 Lactated Ringers IV 12/13/21 11:13 20 mls/hr .Q24H [facility] Administration Insulin Aspart 0 units 12/09/21 12:00 12/12/21 10:33 Insulin Aspart 300 Units/3 Ml Insuln.Pen SUBCUT 12/09/22 11:59 Not Given TID.WM.HS [place] Protocol Lidocaine HCl 0.1 ml 12/12/21 11:14 Lidocaine 1% 50 Ml Vial INTRADERMA 12/12/21 17:15 PREOP PRN Venipuncture Nortriptyline HCl 50 mg 12/09/21 21:00 12/12/21 10:33 Nortriptyline 25 Mg Capsule PO 12/09/22 20:59 Not Given BID [facility] Omeprazole 20 mg 12/10/21 09:00 12/12/21 10:33 Omeprazole 20 Mg Capsule.Dr PO 12/10/22 08:59 Not Given DAILY [facility] Ondansetron HCl 4 mg 12/09/21 11:19 Ondansetron 4 Mg/2 Ml Vial IV-PUSH 12/09/22 11:18 Q8H PRN Nausea And Vomiting Pioglitazone HCl 15 mg 12/10/21 09:00 12/12/21 10:33 Pioglitazone 15 Mg Tablet PO 12/10/22 08:59 Not Given DAILY [facility] Potassium Chloride 40 meq 12/09/21 11:19 [...] Capsule PO 12/09/22 21:59 30 mg QHS [place] Administration Tramadol HCl 50 mg 12/09/21 11:19 [...] signed by Arleen Stephen MD> 12/12/21 1320 [facility] Work Phone: Progress note Author Teresa guerline [facility] December 12, 2021 8:43pmNote Date/TimeAugust 2021 2:49[place] [address] Urology Progress Note Signed Patient: Taye Gay MR#: [id number] : 1955 Acct:[id number] Age/Sex: 66 / F Adm Date: 2 Loc: Room: [address] [place] [address] Type: ADM INOo Attending Dr: Arleen Stephen [...] Sodium 136, Potassium 3.8, Chloride 103, Carbon Euhsnzb38.5, BUN 5 L, Creatinine 0.76, Est GFR [...] % (Auto) 72.7, Lymph % (Auto) 16.1, Giles % (Auto) 8.8, Eos % (Auto) 2.1, Baso % (Auto) 0.3, Neut # (Auto) 5.3, Lymph # (Auto) 1.2, Giles # (Auto) 0.6, Eos# (Auto) 0.2, Baso [...] Neut % (Auto) 66.8, Lymph % (Auto) 21.0,Giles % (Auto) 9.2, Eos % (Auto) 2.6, Baso % (Auto) 0.4, Neut # (Auto) 4.1, Lymph # (Auto) 1.3, Giles# (Auto) 0.6, Eos # (Auto) 0.2, Baso [...] <Electronically signed by Teresa Strong MD> 12/12/212042 [facility] Work Phone: Progress note Author Walter Strongkarlos [facility] December 13, 2021 8:52amNote Date/TimeAugust 2021 8:52[place] [address] General Surgery Progress Note Signed Patient: Taye Gay MR#: [id number] : 1955 Acct:[id number] Age/Sex: 66 / F Adm Date: 2 Loc: Room: [address] [place] [address] Type: ADM INOo Attending Dr: Wilmer Vance [...] 12/09/21] insulin lispro 100 unit/mL subcutaneous pen ([facility] U-100 Insulin lispro) 1 sliding scaledose [...] 30 mg capsule 30 mg PO QHS 10/14/21 [History Confirmed 12/09/21] Active Medications Acetaminophen (Acetaminophen 325 Mg Tablet) 650 mg PO Q6HR PRN PRN Reason: Pain Scale 1 - 3 or fever Stop: 12/09/22 11:18 Aspirin (Aspirin 81 Mg Tablet.Dr) 81 mg PO DAILY [facility] Stop: 12/10/22 08:59 Last Admin: 12/12/21 10:33 Dose: Not Given Atorvastatin Calcium (Atorvastatin 10 Mg Tablet) 10 mg PO DAILY [facility] Stop: 12/10/22 08:59 Last Admin: 12/12/21 10:33 Dose: Not Given Cyanocobalamin (Cyanocobalamin 1,000 Mcg Tablet) 1,000 mcg PO DAILY [facility] Stop: 12/13/22 08:59 Dextrose (Dextrose 50% In Water 25 Gm/50 Ml Syringe) 0 gm IV-PUSH PRN PRN PRN Reason: Hypoglycemia Stop: 12/09/22 11:18 Docusate Sodium (Docusate 100 Mg Capsule) 100 mg PO TID [facility] Stop: 12/12/22 21:59 Last Admin: 12/12/21 22:26 Dose: 100 mg Enoxaparin Sodium (Enoxaparin 40 Mg/0.4 Ml Syringe) 40 mg SUBCUT DAILY@10 [facility] Stop: 12/10/22 09:59 Last Admin: 12/12/21 10:33 [...] 50 mls @ 100 mls/hr IV Q24H [facility] Last Admin: 12/12/21 11:57 Dose: 100 mls/hr Sodium Chloride (0.9% Sodium Chloride 1,000 Ml) 1,000 mls @ 100 mls/hr IV .[id number] Stop: 12/12/22 00:00 Last Infusion: 12/13/21 03:35 Dose: Infused Lactated Ringer's (Lactated Ringers) 1,000 mls @ 20 mls/hr IV .Q24H ONE Stop: 12/13/21 11:13 Last Infusion: 12/13/21 03:31 Dose: Infused Insulin Aspart (Insulin Aspart 300 Units/3 Ml Insuln.Pen) 0 units SUBCUT TID.WM.[facility]; Protocol Stop: 12/09/22 11:59 Last Admin: 12/13/21 08:07 Dose: 4 units Nortriptyline HCl (Nortriptyline 25 Mg Capsule) 50 mg PO BID [facility] Stop: 12/09/22 20:59 Last Admin: 12/12/21 22:27 Dose: 50 mg Omeprazole (Omeprazole 20 Mg Capsule.Dr) 20 mg PO DAILY [facility] Stop: 12/10/22 08:59 Last Admin: 12/12/21 10:33 Dose: Not Given Ondansetron HCl (Ondansetron 4 Mg/2 Ml Vial) 4 mg IV-PUSH Q6H PRN PRN Reason: Nausea And Vomiting Stop: 12/12/22 18:19 Pioglitazone HCl (Pioglitazone 15 Mg Tablet) 15 mg PO DAILY [facility] Stop: 12/10/22 08:59 Last Admin: 12/12/21 [...] 15 Mg Capsule) 30 mg PO QHS [facility] Stop: 12/09/22 21:59 Last Admin: 12/12/21 [...] Sodium 137, Potassium 4.4, Chloride 105, Carbon Tmmdqgk32.6, BUN 12, Creatinine 0.75, Est GFR ( Amer) > 60, Est GFR (Non-Af Amer) > 60, TotalBilirubin 0.7, Direct Bilirubin 0.2, Indirect Bilirubin 0.5 12/13/21 05:58: Corrected WBC 9.4, Uncorrected WBC Count 9.4, RBC 4.41, Hgb 14.2, Hct 41.9, MCV 95.1, MCH 32.2, MCHC 33.9, RDW 12.9, Plt Count 178, MPV 9.3,Neut % (Auto) 90.4, Lymph % (Auto) 7.7, Giles % (Auto) 1.8, Eos % (Auto) 0.0, Baso % (Auto) 0.1, Neut # (Auto) 8.5 H, Lymph # (Auto) 0.7 L, Giles# (Auto) 0.2, Eos # (Auto) 0.0, Baso # (Auto) 0.0, Nucleated RBC % (auto) 0.0 12/12/21 20:42: POC Glucose 214 12/12/21 18:25: POC Glucose 178 12/12/21 15:26: POC Glucose 133 12/12/21 11:48: POC Glucose 167 12/12/21 07:47: PHA Creatinine Clear 83.77, Sodium 136, Potassium 3.8, Chloride 103, Carbon Jxcbioi95.5, BUN 5 L, Creatinine 0.76, Est GFR [...] % (Auto) 72.7, Lymph % (Auto) 16.1, Giles % (Auto) 8.8, Eos % (Auto) 2.1, Baso % (Auto) 0.3, Neut # (Auto) 5.3, Lymph # (Auto) 1.2, Giles # (Auto) 0.6, Eos# (Auto) 0.2, Baso [...] Neut % (Auto) 66.8, Lymph % (Auto) 21.0,Giles % (Auto) 9.2, Eos % (Auto) 2.6, Baso % (Auto) 0.4, Neut # (Auto) 4.1, Lymph # (Auto) 1.3, Giles# (Auto) 0.6, Eos # (Auto) 0.2, Baso [...] signed by DO Walter Montgomery> 12/13/21 0852 [facility] Work Phone: Progress note Author Priscilla Lang [facility] HospitalNote Date/TimeJanuary 2024 11:02am [place] [address] Hospitalist Progress Note Signed Patient: Taye Gay MR#: [id number] : 1955 Acct:[id number] Age/Sex: 68 / F Adm Date: 4 Loc: 3T Room: [address] [place] [address] Type: ADM IN Attending Dr: Priscilla Lang [...] of dementia, possible Alzheimer's dementia -continue home [id number] mg twice daily and donepezil 20 mg [...] Tablet PO 04/29/25 08:59 5 mg BID [facility] Administration Aspirin 81 mg 04/29/24 09:00 04/29/24 08:02 Aspirin 81 Mg Tablet. PO 04/29/25 08:59 81 mg DAILY [facility] Administration Atorvastatin Calcium 80 mg 04/28/24 22:45 04/28/24 23:58 Atorvastatin 80 Mg Tablet PO 04/28/25 22:44 80 mg QPM [facility] Administration Carvedilol 12.5 mg 04/29/24 09:00 04/29/24 08:02 Carvedilol 12.5 Mg Tablet PO 04/29/25 08:59 12.5 mg BID [facility] Administration Cyanocobalamin 1,000 mcg 04/29/24 09:00 04/29/24 08:02 Cyanocobalamin 1,000 Mcg Tablet PO 04/29/25 08:59 1,000 mcg DAILY [facility] Administration Cyclobenzaprine HCl 10 mg 04/29/24 03:51 Cyclobenzaprine 10 Mg Tablet PO 04/29/25 03:50 HS PRN muscle spasm Dapagliflozin 10 mg 04/29/24 09:00 04/29/24 08:02 Dapagliflozin 10 Mg Tablet PO 04/29/25 08:59 10 mg DAILY [facility] Administration Dextrose 0 gm 04/29/24 05:23 Dextrose 50% In Water 25 Gm/50 Ml Syringe IV-PUSH 04/29/25 05:22 PRN PRN Hypoglycemia Docusate Sodium 100 mg 04/29/24 03:51 Docusate 100 Mg Capsule PO 04/29/25 03:50 DAILY PRN constipation Donepezil HCl 20 mg 04/29/24 09:00 04/29/24 08:02 Donepezil 10 Mg Tablet PO 04/29/25 08:59 20 mg DAILY [place] Administration Folic Acid 1 mg 04/29/24 09:00 04/29/24 08:02 Folic Acid 1 Mg Tablet PO 04/29/25 08:59 1 mg DAILY [place] Administration Glucose 0 gm 04/29/24 05:23 Dextrose 40% Gel 15 Gm Tube PO 04/29/25 05:22 PRN PRN Hypoglycemia Insulin Aspart 0 units 04/29/24 08:00 04/29/24 08:33 Insulin Aspart 300 Units/3 Ml SUBCUT 04/29/25 07:59 3 units TID.WM.HS [place] Administration Protocol Insulin Glargine 18 units 04/29/24 09:00 04/29/24 08:33 Insulin Glargine 300 Units/3 Ml Insuln.Pen SUBCUT 04/29/25 08:59 18 units DAILY [place] Administration Lidocaine 1 applic 04/29/24 03:51 Lidocaine 5% Oint 35 Gm Tube TOPICAL 04/29/25 03:50 DAILY PRN pain Memantine 10 mg 04/29/24 09:00 04/29/24 08:02 Memantine 10 Mg Tablet PO 04/29/25 08:59 10 mg BID [place] Administration Multivitamins 1 tab 04/29/24 09:00 04/29/24 08:02 Multivitamin 1 Tab Tablet PO 04/29/25 08:59 1 tab DAILY [place] Administration Pom Ozempic ( 2 mg 04/29/24 09:00 Semaglutide) 2 Mg/ SUBCUT 04/29/25 08:59 Dose (8 Mg/3 Ml) Pen QWEEK PARIS Injector) Pantoprazole Sodium 40 mg 04/29/24 09:00 04/29/24 08:02 Pantoprazole 40 Mg Tablet.Dr MINOR 04/29/25 08:59 40 mg DAILY PARIS Administration Sodium Chloride 0 ml 04/28/24 19:32 [...] by Priscilla Lang MD> 04/29/24 1102 [facility] Work Phone: Progress note Author Lit Clark [facility] HospitalNote Date/TimeJanuary 2024 12:30pm [place] [address] Neurology Progress Note Signed with Jamila Patient: Taye Gay MR#: [id number] : 1955 Acct:[id number] Age/Sex: 68 / F Adm Date: 4 Loc: Room: 8S5795-0 Type: ADM IN Attending Dr: Priscilla Lang MD Copies to: ~ ADDENDUM1 Patient has refused to remove her nail spanish for MRI. Unable to confirm whether or [...] may be metabolic in nature and not freight representative necessarily of transient ischemia or of [...] signed by Lit Clark DO> 04/30/24 0708 [facility] Work Phone: Refgbw for referral (narrative)No reason for referral information availableOhiohealth [facility] Work Phone: Reason for visit Narrative* Other Medical (Routine) - ClosedSpecialtyDiagnoses / ProceduresReferred By ContactReferred To Contact Neurology Diagnoses Numbness Leg pain, left Leg pain, right Bilateral leg weakness Procedures EMG AND NERVE CONDUCTION STUDY Oz Kincaid MD [address] [place] [address] Phone: tel: fax: Oz Kincaid MD [address] [place] [address] Phone: tel: fax: Referral IDStatusReasonStart DateExpiration DateVisits RequestedVisits [id number] Perform Procedure / [facility] Narrative* Other Medical (Routine) - Closed SpecialtyDiagnoses / ProceduresReferred By ContactReferred To ContactNeurology Diagnoses Arm weakness Numbness Arm pain, right Arm pain, left Procedures EMG AND NERVE CONDUCTION STUDY Oz Kincaid MD [address] [place] [address] Phone: tel: fax: Oz Kincaid MD [address] [address] Phone: tel: fax: Referral IDStatusReasonStart DateExpiration DateVisits RequestedVisits [id number] Perform Procedure / [facility] Healthcare Summary Purpose Family History No Family [...] December 4:05pm Procedure Findings Note HNO ID: [id number] Author: Phi aidyefri Joaquin Service: Gynecology Oncology Author Type: Physician Type: Brief Op Note Filed: 01/17/2019 7:15 PM Note Text: BRIEF OPERATIVE / PROCEDURE NOTE LOG ID: [id number] SURGERY/PROCEDURE DATE: 01/01/2019 INCISION/PROCEDURE START TIME: 8:11 AM INCISION CLOSE/PROCEDURE END TIME: 8:34 AM SURGEON(S)/PROCEDURALIST(S) AND DIRECTOR GLOBAL MARKET RESEARCH(S): Surgeon(s) and Role: * Theo Joaquin - [...] 01, 2019 TIME: 8:39 AM PAGER/CONTACT #: [id number] Chief Complaint and Reason for Visit Chief Complaint right side pain Low R abd painReason for VisitCholelithiasis Emphysematous cystitis Pyelonephritis Right lateral abdominal pain Chief Complaint g02.97 f17.210 Chief Complaint g02.97 f17.210 Z12.39 Chief Complaint E11.4 Z78.0 Chief Complaint 3 month follow up Reason for Visit BMI 28.0-28.9,adult [id number] Dietary counseling and surveillance Hyperlipidemia Hypertension Insulin long-term use Peripheral neuropathy Type 2 diabetes mellitus Vitamin B 12 deficiency Chief Complaint 3 month follow up PVD FOLLOW UPReason for VisitBMI 28.0-28.9,adult [id number] Dietary counseling and surveillance Hyperlipidemia Hypertension Insulin long-term use Peripheral neuropathy Type 2 diabetes mellitus Vitamin B 12 deficiency Dizziness Hypertension Primary insomnia Type 2 diabetes mellitus Chief Complaint 3 month follow up PVD FOLLOW UP g02.97 f17.210Reason for VisitBMI 28.0-28.9,adult [id number] Dietary counseling and surveillance Hyperlipidemia Hypertension Insulin long-term use Peripheral neuropathy Type 2 diabetes mellitus Vitamin B 12 deficiency Dizziness Hypertension Primary insomnia Type 2 diabetes mellitus PAD (peripheral artery disease) Chief Complaint 3 month follow up PVD FOLLOW UP g02.97 f17.210 E11.9 E78.5 E53.8Reason for VisitBMI 28.0-28.9,adult [id number] Dietary counseling and surveillance Hyperlipidemia Hypertension Insulin long-term use Peripheral neuropathy Type 2 diabetes mellitus Vitamin B 12 deficiency Dizziness Hypertension Primary insomnia Type 2 diabetes mellitus PAD (peripheral artery disease) Chief Complaint PVD FOLLOW UP g02.97 f17.210 E11.9 E78.5 E53.8 Amb Documentation brent on phone chest pains chest painsReason for VisitPAD (peripheral artery disease) BMI 28.0-28.9,adult [id number] Dietary counseling and surveillance Hyperlipidemia Hypertension Peripheral [...] for VisitPAD (peripheral artery disease) BMI 28.0-28.9,adult [id number] Dietary counseling and surveillance Hyperlipidemia Hypertension Peripheral [...] z11.3 e53.1 i70.91 d51.3Reason for VisitBMI 28.0-28.9,adult [id number] Dietary counseling and surveillance Hyperlipidemia Hypertension Peripheral [...] e53.1 i70.91 d51.3 aflutterReason for VisitBMI 28.0-28.9,adult [id number] Dietary counseling and surveillance Hyperlipidemia Hypertension Peripheral [...] aflutter [place], ShakyReason for VisitBMI 28.0-28.9,adult [id number] Dietary counseling and surveillance Hyperlipidemia Hypertension Peripheral [...] aflutter [place], ShakyReason for VisitBMI 28.0-28.9,adult [id number] Dietary counseling and surveillance Hyperlipidemia Hypertension Peripheral [...] Documentation brent on phoneReason for VisitBMI 28.0-28.9,adult [id number] Dietary counseling and surveillance Hyperlipidemia Hypertension Peripheral [...] Vitamin B 12 deficiency Weakness BMI 28.0-28.9,adult [id number] Dietary counseling and surveillance Hyperlipidemia Hypertension Peripheral neuropathy Type 2 diabetes mellitus Vitamin B 12 deficiency Chief Complaint E11.9 E78.5 E53.8 Amb Documentation brent on phone chest pains chest pains Amb Documentation Hospital follow up g72.9 g62.9 r79.89 g60.9 z11.3 e53.1 i70.91 d51.3 aflutter [place], Shaky Amb Documentation brent on phone typical a flutterReason for VisitBMI 28.0-28.9,adult [id number] Dietary counseling and surveillance Hyperlipidemia Hypertension Peripheral [...] Weakness Abnormal thyroid blood test BMI 28.0-28.9,adult [id number] Dietary counseling and surveillance Hyperlipidemia Hypertension Peripheral neuropathy Type 2 diabetes mellitus Vitamin B 12 deficiency Chief Complaint E11.9 E78.5 E53.8 Amb Documentation brent on phone chest pains chest pains Amb Documentation Hospital follow up g72.9 g62.9 r79.89 g60.9 z11.3 e53.1 i70.91 d51.3 aflutter [place], Shaky Amb Documentation brent on phone typical a flutter typical a flutter [facility] follow upReason for VisitBMI 28.0-28.9,adult [id number] Dietary counseling and surveillance Hyperlipidemia Hypertension Peripheral [...] Weakness Abnormal thyroid blood test BMI 28.0-28.9,adult [id number] Dietary counseling and surveillance Hyperlipidemia Hypertension Peripheral neuropathy Type 2 diabetes mellitus Vitamin B 12 deficiency Hospital discharge follow-up Hypomagnesemia Chief Complaint E11.9 E78.5 E53.8 Amb Documentation brent on phone chest pains chest pains Amb Documentation Hospital follow up g72.9 g62.9 r79.89 g60.9 z11.3 e53.1 i70.91 d51.3 aflutter [place], Shaky Amb Documentation brent on phone typical a flutter typical a flutter [facility] follow up G62.9 G60.9 R79.89 Z11.3 E53.1 I70.31 D51.3Reason for VisitBMI 28.0-28.9,adult [id number] Dietary counseling and surveillance Hyperlipidemia Hypertension Peripheral [...] Weakness Abnormal thyroid blood test BMI 28.0-28.9,adult [id number] Dietary counseling and surveillance Hyperlipidemia Hypertension Peripheral neuropathy Type 2 diabetes mellitus Vitamin B 12 deficiency Hospital discharge follow-up Hypomagnesemia Chief Complaint E11.9 E78.5 E53.8 Amb Documentation brent on phone chest pains chest pains Amb Documentation Hospital follow up g72.9 g62.9 r79.89 g60.9 z11.3 e53.1 i70.91 d51.3 aflutter [place], [place]aky Amb Documentation brent on phone typical a flutter typical a flutter [facility] follow up G62.9 G60.9 R79.89 Z11.3 E53.1 I70.31 D51.3 g62.9 r79.89 g60.9 z11.3 e53.1 d51.3Reason for VisitBMI 28.0-28.9,adult [id number] Dietary counseling and surveillance Hyperlipidemia Hypertension Peripheral [...] Weakness Abnormal thyroid blood test BMI 28.0-28.9,adult [id number] Dietary counseling and surveillance Hyperlipidemia Hypertension Peripheral neuropathy Type 2 diabetes mellitus Vitamin B 12 deficiency Hospital discharge follow-up Hypomagnesemia Chief Complaint g72.9 g62.9 r79.89 g 60.9 z11.3 e53.1 i70.91 d51.3 aflutter [place], [place]aky Amb Documentation brent on phone typical a flutter typical a flutter [facility] follow up G62.9 G60.9 R79.89 Z11.3 E53.1 I70.31 D51.3 g62.9 r79.89 g60.9 z11.3 e53.1 d51.3 M54.17Reason for VisitAmbulatory dysfunction Hypomagnesemia Hypothyroid Type 2 diabetes mellitus with hyperglycemia Vitamin B 12 deficiency Weakness Abnormal thyroid blood test BMI 28.0-28.9,adult [id number] Dietary counseling and surveillance Hyperlipidemia Hypertension Peripheral neuropathy Type 2 diabetes mellitus Vitamin B 12 deficiency Hospital discharge follow-up Hypomagnesemia Chief Complaint g72.9 g62.9 r79.89 g 60.9 z11.3 e53.1 i70.91 d51.3 aflutter [place], Shaky Amb Documentation brent on phone typical a flutter typical a flutter [facility] follow up G62.9 G60.9 R79.89 Z11.3 E53.1 I70.31 D51.3 g62.9 r79.89 g60.9 z11.3 e53.1 d51.3 M54.17 R60.0 M79.671 r/o dvtReason for VisitAmbulatory dysfunction Hypomagnesemia Hypothyroid Type 2 diabetes mellitus with hyperglycemia Vitamin B 12 deficiency Weakness Abnormal thyroid blood test BMI 28.0-28.9,adult [id number] Dietary counseling and surveillance Hyperlipidemia Hypertension Peripheral neuropathy Type 2 diabetes mellitus Vitamin B 12 deficiency Hospital discharge follow-up Hypomagnesemia Chief Complaint g72.9 g62.9 r79.89 g 60.9 z11.3 e53.1 i70.91 d51.3 aflutter [place], Shaky Amb Documentation brent on phone typical a flutter typical a flutter [facility] follow up G62.9 G60.9 R79.89 Z11.3 E53.1 I70.31 D51.3 g62.9 r79.89 g60.9 z11.3 e53.1 d51.3 M54.17 R60.0 M79.671 r/o dvt L97.511 L03.115 lumbosacral radiculopathy at g1Bitaxk for VisitAmbulatory dysfunction Hypomagnesemia Hypothyroid Type 2 diabetes mellitus with hyperglycemia Vitamin B 12 deficiency Weakness Abnormal thyroid blood test BMI 28.0-28.9,adult [id number] Dietary counseling and surveillance Hyperlipidemia Hypertension Peripheral neuropathy Type 2 diabetes mellitus Vitamin B 12 deficiency Hospital discharge follow-up Hypomagnesemia Chief Complaint aflutter [place], Shaky Amb Documentation brent on phone typical a flutter typical a flutter [facility] follow up G62.9 G60.9 R79.89 Z11.3 E53.1 I70.31 D51.3 g62.9 r79.89 g60.9 z11.3 e53.1 d51.3 M54.17 R60.0 M79.671 r/o dvt L97.511 L03.115 lumbosacral radiculopathy at s1 8 Month F/UReason for VisitAmbulatory dysfunction Hypomagnesemia Hypothyroid Type 2 diabetes mellitus with hyperglycemia Vitamin B 12 deficiency Weakness Abnormal thyroid blood test BMI 28.0-28.9,adult [id number] Dietary counseling and surveillance Hyperlipidemia Hypertension Peripheral [...] 2024 11:14am Dietary counseling and surveillance [facility] 2023 11:14am Hyperlipidemia April 28, 2024 [...] 28, 2024 11:14am Dietary counseling and surveillance [facility] 2023 11:14am Hyperlipidemia April 28, 2024 11:14am Hypertension April 28, 2024 11:14am Peripheral neuropathy April 28 11:14am Type 2 diabetes mellitus April 28, 2024 11:14am Vitamin B 12 deficiency April 28 024 11:14am Atrial fibrillation April 28, 2024 10:38pm Generalized weakness April 28, 2024 10:38pm Insulin dependent diabetes mellitus [facility] 2023 10:38pm TIA (transient ischemic attack) April 28, 2024 10:38pm Chief Complaint Admit Date Screening, Dysphagia February 14, 2024 12:30pm NEW elevated WBC April 14, 2024 9:30am irregular heart beat, dizziness, weaknes s April 27, 2024 2:18pm Follow Up 2 Weeks April 28, 2024 9:53am brent on phone April 28, 2024 11:14am Weakness April 28, 2024 10:38pm [facility] FOLLOW UP May 07 1:02pm Reason for Visit Admit Date High granulocyte count April 14 9:30am Secondary polycythemia April 14 9:30am High granulocyte count April 28 9:53am Secondary polycythemia April 28 9:53am BMI 32.0-32.9,adult April 28, 2024 11:14am Chronic kidney disease (CKD) stage G2/A2, mildly decreased glomerular filtr April 28, 2024 11:14am Dietary counseling and surveillance [facility] 2023 11:14am Hyperlipidemia April 28, 2024 11:14am Hypertension April 28, 2024 11:14am Peripheral neuropathy April 28 11:14am Type 2 diabetes mellitus April 28, 2024 11:14am Vitamin B 12 deficiency April 28, 024 11:14am Atrial fibrillation April 28, 2024 10:38pm Generalized weakness April 28, 2024 10:38pm Insulin dependent diabetes mellitus De[facility] 2023 10:38pm TIA (transient ischemic attack) April 28, 2024 10:38pm Cigarette nicotine dependence April 1:02pm Chief Complaint Admit Date NEW elevated WBC April 14, 2024 9:30am irregular heart beat, dizziness, weaknes s April 27, 2024 2:18pm Follow Up 2 Weeks April 28, 2024 9:53am brent on phone April 28, 2024 11:14am Weakness April 28, 2024 10:38pm [facility] FOLLOW UP May 07 1:02pm G45.9 [...] 2024 11:14am Dietary counseling and surveillance [facility] 2023 11:14am Hyperlipidemia April 28, 2024 11:14am Hypertension April 28, 2024 11:14am Peripheral neuropathy April 28 11:14am Type 2 diabetes mellitus April 28, 2024 11:14am Vitamin B 12 deficiency April 28, 2 024 11:14am Atrial fibrillation April 28, 2024 10:38pm Generalized weakness April 28, 2024 10:38pm Insulin dependent diabetes mellitus De[facility] 2023 10:38pm TIA (transient ischemic attack) [...] 2024 11:14am Weakness April 28, 2024 10:38pm [facility] FOLLOW UP May 07 1:02pm G45.9 [...] 2024 11:14am Weakness April 28, 2024 10:38pm [facility] FOLLOW UP May 07 1:02pm G45.9 [...] 2024 11:14am Weakness April 28, 2024 10:38pm [facility] FOLLOW UP May 07 1:02pm G45.9 [...] 2024 11:14am Dietary counseling and surveillance [facility] 2023 11:14am Hyperlipidemia April 28, 2024 11:14am Hypertension April 28, 2024 11:14am Peripheral neuropathy April 28 11:14am Type 2 diabetes mellitus April 28, 2024 11:14am Vitamin B 12 deficiency April 28, 2 024 11:14am Atrial fibrillation April 28, 2024 10:38pm Generalized weakness April 28, 2024 10:38pm Insulin dependent diabetes mellitus [facility] 2023 10:38pm TIA (transient ischemic attack) [...] 2024 10:38pm Insulin dependent diabetes mellitus [facility] 2023 10:38pm TIA (transient ischemic attack) [...] 1:23pm Vitamin B 12 deficiency January 05, 025 1:23pm Chief Complaint Admit Date L97.512 [...] Procedures ECG 12 Lead Jonas Ch MD [address] [place] [address] Ref[facility] DateExpiration DateVisits RequestedVisits [id number]/17/20247/17/[id number] / Procedures Referred By ContactReferred To Contact Diagnoses Typical atrial flutter (Multi) Procedures Complete Pulmonary Function Test (Spirometry/DLCO/Lung Volumes) Jonas Ch MD [address] [place] [address] Referral IDStatus[facility] DateExpiration DateVisits RequestedVisits [id number] [id number] / ProceduresReferred By ContactReferred To ContactRadiology Diagnoses Typical atrial flutter (Multi) Procedures XR chest 2 views Jonas Ch MD [address] [facility] 2, [place] [address] [place] [address] Referral IDStatusReasonSttampa DateExpiration DateVisits RequestedVisits [id number] Perform Procedure [id number] / ProceduresReferred By ContactReferred To ContactCardiology Diagnoses Nonischemic cardiomyopathy (Multi) Procedures Follow Up In Cardiology Jonas Ch MD [address] [place] [address] [facility] 2, [place] [address] [place] [address] Roland Faust MD [address] [place] [address] 2, [address] [address] Referral IDStatusReasonThomson DateExpiration DateVisits RequestedVisits [id number]/17/20247/990966EcmtpecylWigtzyznr / Procedures Referred By ContactReferred To ContactCardiology Diagnoses Typical atrial flutter (Multi) Procedures Cardioversion External Jonas Ch MD [address] [place] [address] 2, [place] [address] [place] [address] Referral IDStatus[facility] DateExpiration DateVisits RequestedVisits [id number] [id number] / ProceduresReferred By ContactReferred To ContactCardiology Diagnoses Typical atrial flutter (Multi) Procedures Follow Up In Cardiology Jonas Ch MD [address] [place] [address] [facility] 2, [place] [address] [place] [address] Jonas Ch MD [address] [place] [address] 2, [place] [address] [place] [address] Referral IDStatusReasonStart DateExpiration DateVisits RequestedVisits [id number]/10/20246/10/202511 Reason LEFT FOOT INJURY Diagnosis 1 Type 2 diabetes ye itus with hyperglycemia (E11.65) Diagnosis 2 Injury of foot, left (S99.928P) Referral Organization [facility] Referring Provider First Name Angelique Referring Provider Last Name Yvonne Referring Provider Specialty Nurse Pract itioner Referred Organization [facility] Referred Provider Karl Fritz Referred Address ,[place], [place],[address] Referred Provider Specialty Podiatry - S urgical Chiropody Referral Priority Routine Referral Appointment Date 2023-01-09 General Notes Emerald Doshi 12/28 03:26:20 PM >SCHEDULED FOR 01/09/23 AT 10:15AM. PATIENT INFORMED. Additional Source Comments INFORMATION SOURCE (unrecogn ized section and content) DATE CREATED AUTHOR 10/21/2017 [facility] DATE CREATED AUTHOR AUTHOR'S ORGANIZ ATION 10/22/2017 [facility] DATE CREATED AUTHOR AUTHOR'S ORGANIZ ATION 02/16/2019 [facility] DATE CREATED AUTHOR AUTHOR'S ORGANIZ ATION 02/02/2022 [facility] DATE CREATED AUTHOR AUTHOR'S ORGANIZ ATION 11/16/2024 [facility] DATE CREATED AUTHOR AUTHOR'S ORGANIZ ATION 01/01/2025 [facility] DATE CREATED AUTHOR AUTHOR'S ORGANIZ ATION 02/08/2025 [facility] DATE CREATED AUTHOR AUTHOR'S ORGANIZ ATION 02/11/2025 [facility] EP[facility] DATE CREATED AUTHOR AUTHOR'S ORGANIZ ATION 03/11/2025 [facility] REASON FOR VISIT (unrecogniz ed section and content) ReasonCommentsHospital Follow-up[facility] 09/14/23ReasonCommentsPeripheral Neuropathy ReasonCommentsBlood Pressure CheckWith ekgSpecialtyDiagnoses / Procedures Referred By ContactReferred To ContactCardiology Diagnoses Hypertension, unspecified type Procedures Follow Up In Cardiology Rloand Faust MD 703 [facility] 2, [address] [address] Phone: tel: fax: Roland Faust MD [address] [place] [address] [address], [address] [address] Phone: tel: fax: Referral IDStatusReasonSttampa DateExpiration DateVisits RequestedVisits [id number]/11/202411/[id number]-xeXPJ follow upSpecialtyDiagnoses / ProceduresReferred By ContactReferred To Contact Cardiology Diagnoses Typical atrial flutter (Multi) Procedures Follow Up In Cardiology Jonas Ch MD [address] [place] [address] 2, [place] [phone] Jonas Ch MD [address] [place] [address] 2, [place] [phone] [facility] DateExpiration DateVisits RequestedVisits [id number]/10/20246/447311FekvhrUxgnqdnozwtgbmdzp decline ReasonCommentsFollow-upMedication change, Amio d/cSpecialtyDiagnoses / ProceduresReferred By ContactReferred To ContactCardiology Diagnoses Typical atrial flutter (Multi) Procedures Follow Up In Cardiology Roland Faust MD 703 [facility] 2, [place] [phone] Roland Faust MD 703 [facility] 2, [place] [phone] Referral IDStatReEncompass [facility] DateExpiration DateVisits RequestedVisits [id number]/1/20248/[id number] / Procedures Referred By ContactReferred To ContactNeurology Diagnoses Carpal tunnel syndrome, bilateral upper limbs Procedures NC INJECTION THERAPEUTIC CARPAL TUNNEL NC KETOROLAC TROMETHAMINE INJ 1 CC STERILE SYRINGE&NEEDLE Oz Kincaid MD [address] [place] [phone] Oz Kincaid MD [address] [place] [phone] Referral IDStatusReasonStart DateExpiration DateVisits RequestedVisits [id number] Perform Procedure /[id number]-er9 month with EKG. Pt denies c/o at this time.SpecialtyDiagnoses / ProceduresReferred By ContactReferred To Contact Cardiology Diagnoses Nonischemic cardiomyopathy (Multi) Procedures Follow Up In Cardiology Jonas Ch MD Traboulssi, Mourhaf, MD [address] [place] [address], [place] [address] Phone: tel: fax: Referral IDStatusReasonStart DateExpiration DateVisits RequestedVisits [id number] Review/[id number]nzm declineReasonCommentsMed RefillReasonCommentsFollow-up6 month, nonischemic cardiomyopathySpecialtyDiagnoses / ProceduresReferred By ContactReferred To ContactCardiology Diagnoses Nonischemic cardiomyopathy (Multi) Procedures Follow Up In Cardiology Roland Faust MD 703 [facility] 2, [place] [phone] Phone: tel: fax: Referral IDStatusReasonStart DateExpiration DateVisits RequestedVisits [id number]/28/20252/[id number]osj Exam Patient present for New patient yearly visit with problems. Patient was last seen 10/12/2021 for a colpo due to LSIL PAPs. Last PAP: 09/07/2021; LSIL LMP: PMPReasonCommentsFollow-up Care Teams (unrecognized sec tion and content) Team Status: Active Member Role Status Dates Sandra Keita , DO Primary Care Provider Active Team Status: Inactive Member Role Status Dates Sandra Keita DO Primary Care Provider Active Start: June 26, 2024 End: June 26, 2024Roland Faust MDAttending ProviderActiveStart: June 26, 2024 End: June 26, 2024Angelique Russell , APRNOther ProviderActiveStart: June 26, 2024 End: June 26, 2024 Team Status: Active Member Role Status Dates Sandra Keita DO Primary Care Provider Active Start: June 26, 2024 Nataliya Jane , APRNAttending ProviderActiveStart: June 26, 2024 Oz Kincaid , JAYCEeferring ProviderActiveStart: June 26, 2024 Team Status: Inactive Member Role Status Dates Deneen Frost PA-C Attending Provider Active Start: July 06, 2024 End: July 06, 2024 Team Status: Inactive Member Role Status Dates Sandra Keita DO Primary Care Provider Active Start: July 22, 2024 End: July 22, 2024Latricia Jacobs , SATURATION EQUIPMENT OPERATOR-CAttending ProviderActiveStart: July 22, 2024 End: July 22, 2024 Team Status: Inactive Member Role Status Dates Sandra Keita DO Primary Care Provider Active Start: August 20, 2024 End: August 20, 2024Angelique Russell , APRNAttending ProviderActiveStart: August 20, 2024 [...] Start: June 12, 2023 End: June 12, 2023Tim Guerrero ProviderActiveStart: June 12, 2023 End: June 12, 2023 Team Status: Active Member Role Status Dates Jonas Yoder , DO Primary Care Provider Acti stephanie Fine , MDActiveCaitlin Yao Giang , PA-CActiveTondra Estephania Russell , LEAD JAVA PROGRAMMER Attending ProviderActive Team Status: Inactive Member Role Status Dates Sandra Keita , DO Primary Care Provider, Attending Franchesca hartley Active Team Status: Inactive Member Role Status Dates Tray Randle , DO Emergency Provider Active Arleen Stephen MDAdmit ProviderActivePasocorro Montgomery , Other ProviderActiveTeresa Strong MDOther ProviderActiveBanner Rehabilitation Hospital Westmarkel Vance , MDAttending ProviderActive Jonas Yoder , [facility] Care ProviderActive Team Status: Inactive Member Role [...] ProviderActiveStart: September 13, 2023 End: September 14, 2023W Tuan Yoo DOOther ProviderActiveStart: September 13, 2023 End: September 14, 2023Ric Lamar MDOther ProviderActiveStart: September 13, 2023 End: September 14, 2023Jonas Ch MDOther ProviderActiveStart: September 13, 2023 End: September 14, 2023Molurdes Faust MDOther ProviderActiveStart: September 13, 2023 End: September 13dimple Barbosa MDOther ProviderActiveStart: September 13, 2023 End: September 13Jerrica Sarah ProviderActiveStart: September 13, 2023 End: September 14, 2023Stephanie Stoll MDOther ProviderActiveStart: September 13, 2023 End: September 14, 2023Moshelby Kaplan MDOther ProviderActiveStart: September 13, 2023 End: September 14, 2023Taora Tenorio MDOther ProviderActiveStart: September 13, 2023 End: September 13BENIGNO Brown-BCOther ProviderActiveStart: September 13, 2023 End: September 14, 2023Ashley Cheatham MDOther ProviderActiveStart: September 13, 2023 End: September 14, 2023 Team Status: Active Member Role Status Dates Sandra Keita DO Primary Care Provider Active Start: September 14, 2023 Chris Burnham ProviderActiveStart: September 14, 2023 Elva Florian MDAdmit Provider, Other ProviderActiveStart: September 14, [...] Cara Tenorio MDOther ProviderActiveStart: September 14, 2023 DAVID BerryP-Other ProviderActiveStart: September 14, 2023 Ashley Cheatham MDOther ProviderActiveStart: September 14, 2023 Faraz Gilliam MDAttending ProviderActiveStart: September 14, 2023 Team Status: Active Member Role Status Dates Sandra Keita DO Primary Care Provider Active Start: September 16, 2023 Nicolas Cardenas ProviderActiveStart: September 16, 2023 Team Status: Inactive Member Role Status Dates Sandra Keita DO Primary Care Provider Active Start: September 17, 2023 End: September 16Tim Haynes ProviderActiveStart: September 17, 2023 End: September 17, 2023Team MemberRelationshipSpecialtyStart DateEnd Date Sandra Keita DO [address] [facility] [place] [address] [facility] Team Status: Active Member Role Status Dates Sandra Keita DO Primary Care Provider Active Start: September 14, 2023 End: September 14, 2023Chris Burnham ProviderActiveStart: September 14, 2023 End: September 14, 2023Elva Florian MDAdmleticia Provider, Other ProviderActiveStart: September 14, 2023 End: September 14, 2023Marli Paz RNOther ProviderActiveStart: September 14, 2023 End: September 14, 2023W Tuan Yoo DOOther ProviderActiveStart: September 14, 2023 End: September 14, 2023Ric Lamar MDOther ProviderActiveStart: September 14, 2023 End: September 14, 2023Wistew Ch MDOther ProviderActiveStart: September 14, 2023 End: September 14, 2023Rolnad Faust MDOther ProviderActiveStart: September 14, 2023 End: September 13dimple Barbosa MDOther ProviderActiveStart: September 14, 2023 End: September 13Jerrica Sarah ProviderActiveStart: September 14, 2023 End: September 14, 2023Gededra Stoll MDOther ProviderActiveStart: September 14, 2023 End: September 14, 2023Jann Kaplan MDOther ProviderActiveStart: September 14, 2023 End: September 14, 2023Cara Tenorio MDOther ProviderActiveStart: September 14, 2023 End: September 13BENIGNO Brown-MAURICIOOther ProviderActiveStart: September 14, 2023 End: September 14, 2023Ashley Cheatham MDOther ProviderActiveStart: September 14, 2023 End: September 14, 2023GeSánchez Langleyending ProviderActiveStart: September 14, 2023 End: September 14, 2023 Team Status: Inactive Member Role Status Dates Sandra Keita DO Primary Care Provider Active Start: October 30, 2023 End: October 30, 2023Oz Kinacid , MDAttending ProviderActiveStart: October 30, 2023 End: October [...] Start: November 10, 2023 End: November 11Lorenzo Cannonrtip ProviderActiveStart: November 10, 2023 End: November 12, 2023Nai Royalit ProviderActiveStart: November 10, 2023 End: November 12, 2023Saranya Bother ProviderActiveStart: November 10, 2023 End: November 12, 2023Cash Aponte PhDOther ProviderActiveStart: November 10, 2023 End: November 12, 2023Jelly Tuttle DOOther ProviderActiveStart: November 10, 2023 End: November 12, 2023John Murillo MDOther ProviderActiveStart: November 10, 2023 End: November 11madisyn Clark DOOther ProviderActiveStart: November 10, 2023 End: November 12, 2023DANIEL HollisOther ProviderActiveStart: November 10, 2023 End: November 11rebecca Isidro DOOther ProviderActiveStart: November 10, 2023 End: November 11johnathon Calvo APRNOther ProviderActiveStart: November 10, 2023 End: November 11ko Medina SATURATION EQUIPMENT OPERATOR-COther ProviderActiveStart: November 10, 2023 End: November 12, 2023Jeanine Ibrahim APRN-FNP-COther ProviderActiveStart: November 10, 2023 End: November 12, 2023Chaka Frye , MDAttending ProviderActiveStart: November 10, 2023 End: November 12, 2023 Team Status: Active Member Role Status Dates Sandra Keita DO Primary Care Provider Active Start: November 13, 2023 Diya BrownAttending ProviderActiveStart: November 13, 2023 Team Status: Inactive Member Role Status Dates Sandra Keita DO Primary Care Provider Active Start: November 14, 2023 End: November 14, 2023Angelique Russell , APRMirellatenderic ProviderActiveStart: November 14, 2023 End: November 14, [...] November 18, 2023 End: November 17manuel Salinas APRNAttending ProviderActiveStart: November 18, 2023 End: November 18, 2023 Team Status: Inactive Member Role Status Dates Sandra Keita DO Primary Care Provider Active Start: November 26, 2023 End: November 26, 2023Oz Kincaid MDAttending ProviderActiveStart: November 26, 2023 End: November 26, 2023 Team Status: Inactive Member Role Status Dates Sandra Keita DO Primary Care Provider Active Start: December 02, 2023 End: December 02, 2023Mark Lillian Kincaid , MDAttending ProviderActiveStart: December 02, 2023 End: December 01manuel Salinas , SUSANAeferring ProviderActiveStart: December 02, 2023 End: December 02, 2023 Team Status: Inactive Member Role Status Dates Sandra Keita DO Primary Care Provider Active Start: December 17, 2023 End: December 17, 2023Mark D Bejeni , MDAttending ProviderActiveStart: December 17, 2023 End: [...] MemberRelationshipSpecialtyStart DateEnd Date Sandra Keita DO [address] [facility] [place] [address] [facility]23 Team Status: Inactive Member Role Status Dates Sandra Keita DO Primary Care Provide r, Attending Provider Active Start: February 03, 2024 End: February 03, 2024Team MemberRelationshipSpecialtyStart DateEnd Date Sandra Keita DO [address] [facility] [place] [address] [facility]01/09/23Team MemberRelationshipSpecialtyStart DateEnd Date Sandra Keita DO [address] [place] [phone] PCP - GeneralFamily Medicine01/09/23Team MemberRelationshipSpecialtyStart DateEnd Date Sandra Keita DO [address] [place] [phone] PCP - GeneralFamily Medicine01/09/23Team MemberRelationshipSpecialtyStart DateEnd Date Sandra Keita DO [address] [place] [phone] PCP - GeneralFamily Medicine01/09/23Team MemberRelationshipSpecialtyStart DateEnd Date Sandra Keita DO [address] [place] [address] PCP - GeneralFamily Medicine09/25/23Team MemberRelationshipSpecialtyStart DateEnd Date Sandra Keita, [address] [place] [phone] PCP - GeneralFamily Medicine01/09/23Team MemberRelationshipSpecialtyStart DateEnd Date Sandra Keita, DO [address] [place] [phone] PCP - GeneralFamily Medicine01/09/23Team MemberRelationshipSpecialtyStart DateEnd Date Sandra Keita DO [address] [place] [address] PCP - GeneralFamily Medicine01/09/23Team MemberRelationshipSpecialtyStart DateEnd Date Sandra Keita DO [address] [place] [address] PCP - GeneralFamily Medicine09/25/23Team MemberRelationshipSpecialtyStart DateEnd Date Sandra Keita DO [address] [place] [address] PCP - Generalmily Medicine01/09/23Team MemberRelationshipSpecialtyStart DateEnd Date Sandra Keita DO [address] [place] [address] PCP - Generalmily Medicine01/09/23Team MemberRelationshipSpecialtyStart DateEnd Date Sandra Keita DO [address] [place] [address] PCP - Generalmily Medicine09/25/23Team MemberRelationshipSpecialtyStart DateEnd Date Sandra Keita DO [address] [place] [address] PCP - GeneralFamily Medicine01/09/23Team MemberRelationshipSpecialtyStart DateEnd Date Sandra Keita DO [address] [place] [address] PCP - GeneralFamily Medicine01/09/23Team MemberRelationshipSpecialtyStart DateEnd Date Keita, Sandra, DO [address] [place] [address] PCP - GeneralFamily Medicine01/09/23Team MemberRelationshipSpecialtyStart DateEnd Date Keita, Sandra, DO [address] [place] [address] PCP - Generalmily Medicine01/09/23Team MemberRelationshipSpecialtyStart DateEnd Date Keita, Sandra, DO [address] [place] [address] PCP - Generalmily Medicine01/09/23Team MemberRelationshipSpecialtyStart DateEnd Date Keita, Sandra, DO [address] [place] [phone] PCP - GeneralFamily Medicine01/09/23Team MemberRelationshipSpecialtyStart DateEnd Date Keita, Sandra, DO [address] [place] [address] PCP - GeneralFamily Medicine01/09/23Team MemberRelationshipSpecialtyStart DateEnd Date Keita, Sandra, DO [address] [place] [address] PCP - GeneralFamily Medicine01/09/23Team MemberRelationshipSpecialtyStart DateEnd Date Debbie DO Sandra [address] [facility] [place] [address] [facility] Team Status: Inactive Member Role Status Dates Sandra Keita DO Primary Care Provider Active Start: February 14, 2024 End: February 14, 2024Manjit Gleason MDAttending ProviderActiveStart: February 14, 2024 End: February 14, 2024 Team Status: Inactive Member Role Status Dates Sandra Keita DO Primary Care Provider Active Start: April 14, 2024 End: April 14, 2024Tim Wagner ProviderActive Start: April 14, 2024 End: April 14, 2024Oz Kincaid , JAYCEeferring ProviderActiveStart: April 14, 2024 End: April 14, 2024 Team Status: Inactive Member Role Status Dates Sandra Keita DO Primary Care Provider Active Start: April 27, 2024 End: April 27Chris Cannon ProviderActiveStart: April 27, 2024 End: April 27, 2024 Team Status: Inactive Member Role Status Dates Sandra Keita DO Primary Care Provider Active Start: April 28, 2024 End: April 28, 2024Brice Wagnertenderic ProviderActive Start: April 28, 2024 End: April 28, 2024JAYCE Rochaeferring ProviderActiveStart: April 28, 2024 Team Status: Inactive Member Role Status Dates Sandra Keita DO Primary Care Provider Active Start: April 28, 2024 End: April 28, 2024Tim Guerrero ProviderActiveStart: April 28, 2024 End: April 28, 2024 Team Status: Active Member Role Status Dates Sandra Keita DO Primary Care Provider Active Start: April 28, 2024 Carlyle Tamayo ProviderActiveStart: April 28, 2024 Jori Frings , DOAdmit Provider, Attending ProviderActiveStart: April 28, 2024 Team Status: Inactive Member Role Status Dates Sandra Keita DO Primary Care Provider Active Start: April 28, 2024 End: April 30Carlyle Page ProviderActiveStart: April 28, 2024 End: April 30, 2024Micjulia Williss , DOAdmit ProviderActiveStart: April 28, 2024 End: April [...] MemberRelationshipSpecialtyStart DateEnd Date Sandra Keita DO [address] [place] [address] [facility]/23 Team Status: Inactive Member Role Status Dates Sandra Keita DO Primary Care Provider Active Start: April 28, 2024 End: April 28, 2024Tim Wagner ProviderActive Start: April 28, 2024 End: April 28, 2024Team MemberRelationshipSpecialtyStart DateEnd Date Sandra Keita DO [address] [place] [address] [facility] Team Status: Inactive Member Role Status Dates Sandra Keita DO Primary Care Provider Active Start: September 10, 2024 End: September 10, 2024Imad Celine Gleason ProviderActiveStart: September 10, 2024 End: September 10, 2024 Team Status: Active Member Role Status Dates Sandra Keita DO Primary Care Provider Active Start: September 10, 2024 Imjennifer Gleason Celine Provider, Other ProviderActiveStart: September 10, 2024 Team Status: Inactive Member Role Status Dates Samm Medina MD Attending Provider Active S tart: October 01, 2024 End: October 01, 2024GlEllen Denny ProviderActiveStart: October 01, 2024 End: October 01, 2024PHYSICIAN NO FAMILYPrimary Care ProviderActiveStart: October 01, 2024 End: October 01, 2024Team MemberRelationshipSpecialtyStart DateEnd Date Sandra Keita DO PCP - GeneralFamily Medicine01/09/23Team MemberRelationshipSpecialtyStart DateEnd Date Sandra Keita DO PCP - GeneralFamily Medicine01/09/23Team MemberRelationshipSpecialtyStart DateEnd Date Sandra Keita DO PCP - GeneralFamily Medicine01/09/23Team MemberRelationshipSpecialtyStart DateEnd Date Sandra Keita DO [address] [facility] [place] [address] PCP - GeneralFamily Medicine10/15/24Team MemberRelationshipSpecialtyStart DateEnd Date Sandra Keita DO [address] [facility] [place] [address] PCP - GeneralFamily Medicine10/15/24Team MemberRelationshipSpecialtyStart DateEnd Date Sandra Keita DO [address] [place] [address] [facility]/15/24Team MemberRelationshipSpecialtyStart DateEnd Date Sandra Keita DO [address] [facility] [place] [address] [facility]10/15/24 Team Status: Inactive Member Role Status Dates Sandra Keita DO Primary Care Provider Active Start: August 25, 2024 End: August 25, 2024Sandra Keita DOAttending ProviderActiveStart: August 25, 2024 End: August 25, [...] MemberRelationshipSpecialtyStart DateEnd Date Sandra Keita DO [address] [facility] [place] [address] [facility]10/15/24Team MemberRelationshipSpecialtyStart DateEnd Date Sandra Keita DO [address] [facility] [place] [address] [facility]CP [facility]10/15/24 Team Status: Active Member Role Status Dates Shantel Norton APRN SATURATION EQUIPMENT OPERATOR-C Primary Care Provider Active Team Status: Inactive Member Role Status Dates Shantel Norton APRN SATURATION EQUIPMENT OPERATOR-C Primary Care Provider Active Start: December 15, 2024 End: December 15, 2024Shatnel Norton APRN SATURATION EQUIPMENT OPERATOR-CAttending ProviderActive Start: December 15, 2024 End: December 15, 2024Team MemberRelationshipSpecialtyStart DateEnd Date Sandra Keita DO [address] [place] [address] [facility] Team Status: Inactive Member Role Status Dates Samm Medina MD Attending Provider Active S tart: December 24, 2024 End: December 24, 2024Shantel Norton APRN SATURATION EQUIPMENT OPERATOR-CPrimary Care ProviderActive Start: December 24, 2024 End: December 24, 2024Team MemberRelationshipSpecialtyStart DateEnd Date Shantel Norton APRN-REGULATORY SUBMISSIONS SPECIALIST [address] [place] [address] [facility]12/30/24 Team Status: Active Member Role Status Dates Samm Medina MD Attending Provider Active S tart: December 31, 2024 Samm Medina MDOther ProviderActiveStart: December 31, 2024 Shantel Norton APRN SATURATION EQUIPMENT OPERATOR-CPrimary Care ProviderActiveStart: December 31, 2024 Team Status: Inactive Member Role Status Dates Shantel Norton APRN SATURATION EQUIPMENT OPERATOR-C Primary Care Provider Active Start: January 052024 End: January 05, 2025Tim Guerrero ProviderActiveStart: January 05, 2025 End: January 05, 2025 Team Status: Inactive Member Role Status Dates Shantel Norton APRN SATURATION EQUIPMENT OPERATOR-C Primary Care Provider Active Start: December 282024 End: January 12, 2025Shantel Norton APRN SATURATION EQUIPMENT OPERATOR-CAttending ProviderActive Start: January 12, 2025 End: January 12, 2025Team MemberRelationshipSpecialtyStart DateEnd Date Sandra Keita DO [address] [place] [address] PCP - [facility] Medicine10/15/24Team MemberRelationshipSpecialtyStart DateEnd Date Sandra Keita DO [address] [place] [address] [facility]10/15/24 Team Status: Inactive Member Role Status Dates Shantel Norton APRN SATURATION EQUIPMENT OPERATOR-C Primary Care Provider Active Start: February 02, 2025 End: February 02, 2025Shantel Norton APRN SATURATION EQUIPMENT OPERATOR-CAttending ProviderActive Start: February 02, 2025 End: February 02, 2025Team MemberRelationshipSpecialtyStart DateEnd Date Sandra Keita DO [address] [place] [address] [facility]10/15/24Team MemberRelationshipSpecialtyStart DateEnd Date Sandra Keita DO [address] [place] [address] [facility]CP [facility]10/15/24Team MemberRelationshipSpecialtyStart DateEnd Date Sandra Keita DO [address] [place] [address] [facility]6/19/25 Goals (unrecognized section and content) Goals may [...] BE BASED ON THE PRIMARY CLINICAL RECORDS. [facility]. provides no warranty or guarantee of the accuracy or completeness of information in this document.
== END 2025-03-17 11:11 | disposition home or self-care (01) ==
LOC: WC 11:10
PROVIDERS: Family Provider Family Medicine; PCP Family Medicine; Visit Provider Physician Assistant
DX: E11.621 Type 2 diabetes mellitus with foot ulcer (principal); L97.415 Non-pressure chronic ulcer of right heel and midfoot with muscle involvement without evidence of necrosis; M20.21 Hallux rigidus, right foot; L97.519 Non-pressure chronic ulcer of other part of right foot with unspecified severity
CPT/HCPCS: 11042; 73630

== ENCOUNTER 2025-03-17 11:34 | Outpatient (OUT) | payer MEDICARE, MEDICAID, SELFPAY ==
--- OUTSIDE RECORDS SUMMARY | 2025-03-12 10:57 | XMS_ITS | Continuity of Care Document ---
Author Organization [facility] Address [address] [place] [address] Phone Care Team Providers Care Line Service Technician Name Role Phone Shantel Norton APRN Primary Care Provider Shantel Norton APRN Attending Provider Samm Medina MD Attending Provider [phone] Samm Medina MD Other Provider [phone] Angelique Russell APRN Attending Provider Manjit Gleason MD Attending Provider Care Teams Patient Care Team Team Status: Active Member Role/Relationship Status Dates Shantel Norton APRN [employer] Primary Care Provider Active Visit Care Team Team Status: Inactive Member Role/Relationship Status Dates Shantel Norton APRN [employer] Primary Care Provider Active Start: December 15, 2024 End: December 15, 2024Shantel Norton APRN [employer] [place]-CAttending ProviderActive Start: December 15, 2024 End: December 15, 2024 Visit Care Team Team Status: Inactive Member Role/Relationship Status Dates Samm Medina MD Attending Provider Active S tart: December 24, 2024 End: December 24, 2024Shantel Norton APRN [employer] [place]CPrimary Care ProviderActive Start: December 24, 2024 End: December 24, 2024 Visit Care Team Team Status: Active Member Role/Relationship Status Dates Samm Medina MD Attending Provider Active S tart: December 31, 2024 Samm Medina MDOther ProviderActiveStart: December 31, 2024 Shantel Norton APRN [employer] [place]CPrimary Care ProviderActiveStart: December 31, 2024 Visit Care Team Team Status: Inactive Member Role/Relationship Status Dates Shantel Norton APRN [employer] Primary Care Provider Active Start: January 052024 End: January 05, 2025Angelique Russell APRNAttenderic ProviderActiveStart: January 05, 2025 End: January 05, 2025 Visit Care Team Team Status: Inactive Member Role/Relationship Status Dates Shantel Norton APRN [employer] [place] Primary Care Provider Active Start: December 282024 End: January 12, 2025Shantel Norton APRN [employer] [place]CAttending ProviderActive Start: January 12, 2025 End: January 12, 2025 Visit Care Team Team Status: Inactive Member Role/Relationship Status Dates Shantel Norton APRN [employer] Primary Care Provider Active Start: February 02, 2025 End: February 02, 2025Shantel Norton APRN [employer] [place]CAttending ProviderActive Start: February 02, 2025 End: February 02, 2025 Patient Care Team Team Status: Inactive Member Role/Relationship Status Dates Shantel Norton APRN [employer] Primary Care Provider Active Start: January End: February 10, 2025Imad Asajennifer , MDAttending ProviderActiveStart: February 10, 2025 End: February 10, 2025 Chief Complaint and Reason for Visit Chief Complaint Admit Date establish December 15, 2024 1: 46pm Unspecified sleep apnea December 24 7:39pm APNEA December 31, 2024 12:00am 4 week follow up January 12, 2025 2:19pm F17.210 F17.200 Z12.2 February 02, 2025 12:06pm Dysphagia February 10, 2025 1 0:00am Reason for Visit Admit Date Allergy to [...] Status Sulfa (Sulfonamide Antibiotics) Allergy Unknown Vomiting February 11, 2025 10:07am Yes Active pioglitazone Adverse Reaction Mild leg edema Octobe r 2024 10:07am Yes Active Social History Smoking Status Status Start Date End Date Date of Observa tion Smokes tobacco daily (finding) February 11, 2025 11:18am Observation Status Observation Response Date of Response Legal Sex Female (finding) Sex Assigned At BirthFemaleJuly 1955 Family History Relationship Condition Age at Onset Recorded Date/T cinthya father Heart disease Unknown DeceasedUnknownHistory of strokeUnknownMalignant neoplasmUnknownmotherHeart diseaseUnknownDeceasedUnknownHypertensionUnknownsonDiabetes mellitusUnknown sisterDeceasedUnknownbrotherDeceasedUnknownbrotherDiabetes mellitusUnknownsister Diabetes mellitusUnknown Problems Active Problems Problem Diagnosis/Recorded Date Onset Date Stat us Daytime sleepiness October 01, 2024 2:33pm Unknown Active Lesion of skin of cheek August 25, 2024 1:18pm Unknow n Active UTI (urinary tract infection) July 10, 2024 12:39pm Unknown Active Emphysematous cystitis December 09, 2021 9:25am Unknow n Active Allergy to honey bee venom December 15, 2024 1:33pm Un known Active Wound of foot February 03, 2024 12:13pm Unknown A ctive High granulocyte count April 28, 2024 8:15am Unkn own Active Primary insomnia June 18, 2023 7:06pm Unknown Active [place] (obstructive sleep apnea) August 25, 2024 1:23pm Unknown Active Screening for osteoporosis December 16, 2024 9:41am Un known Active Insulin long-term use June 12, 2023 8:24am Unkno wn Active Major depression, chronic August 25, 2024 1:18pm Unkn own Active Type 2 diabetes mellitus wit h hyperglycemia June 18, 2023 7:06pm Unknown Active Current every day smoker July 22, 2024 11:21am Unkn own Active Abnormal ultrasound January 22, 2025 7:24am Unknow n Active Insulin dependent diabetes mellitus April 29, 2024 9:03am Unknown Active Dizziness June 19, 2023 5:14pm Unknown A ctive Ambulatory dysfunction November 10, 2023 5:16am Unknown Active Diabetes February 08, 2021 2:58pm Unknown Ac tive New onset atrial flutter September 12, 2023 3:09pm Unknown Active Vitamin B 12 deficiency June 12, 2023 8:25am Unk nown Active Dietary counseling and surveillance June 12 8:24am Unknown Active Type 2 diabetes mellitus June 12, 2023 8:23am Un known Active Chronic kidney disease (CKD) stage G2/A2, mildly decreased glomerular filtration rate (GFR) between 60-89 mL/min/1.73 square meter and albuminuria creatinine ratio between 30-299 mg/g June 12, 2023 8:23am Unknown Active Congestive heart failure October 01, 2024 2:17pm Unknown Active Generalized weakness April 29, 2024 9:02am Unknown Active Atrial fibrillation November 14, 2023 2:17pm Unknown Active Dysphagia, unspecified June 18, 2023 7:06pm Unkn own Active Depression December 15, 2024 1:22pm Unknown Act abdifatah Stool incontinence May 07, 2024 4:07pm Unknown Active TIA (transient ischemic attack) April 28, 2024 10 :48pm Unknown Active Intolerance to BiPAP/CPAP October 01, 2024 1:57pm Unknow n Active Hyperlipidemia October 10, 2022 10:55am Unknown Ac tive Hypothyroid November 10, 2023 5:15am Unknown Activ e Post-menopausal December 16, 2024 9:40am Unknown Active Diabetes mellitus with neuropathy December 16, 2024 10 :08am Unknown Active Peripheral neuropathy June 12, 2023 8:24am Unkno wn Active Pyelonephritis December 09, 2021 9:25am Unknown A ctive Disordered sleep May 07, 2024 4:07pm Unknown Active Tachycardia September 12, 2023 1:23pm Unknown Active Peripheral vascular disease June 19, 2023 1:53pm Unknown Active Cigarette nicotine dependence June 12, 2023 3:45 pm Unknown Active Weakness November 10, 2023 5:00am Unknown Activ e BMI 35.0-35.9,adult June 18, 2023 7:06pm Unknown Active BMI 28.0-28.9,adult June 12, 2023 4:28pm Unknown Active BMI 30.0-30.9,adult June 18, 2023 7:06pm Unknown Active BMI 32.0-32.9,adult April 28, 2024 1:04pm Unknown Active Secondary polycythemia April 28, 2024 8:17am Unkn own Active PAD (peripheral artery disease) July 17, 2023 1:29p m Unknown Active Acute UTI December 13, 2021 12:45pm Unknown Ac tive Screening for lung cancer December 16, 2024 9:40am Unk nown Active Screening for breast cancer December 16, 2024 10:13am Unknown Active Achalasia February 09, 2021 8:50am Unknown Ac tive Abdominal pain December 17, 2021 7:02am Unknown A ctive Lesion of spleen January 12, 2025 1:42pm Unknown Active Hospital discharge follow-up September 24, 2023 6:42am Unk nown Active Hypertension February 08, 2021 2:57pm Unknown Ac tive Hypotension May 07, 2024 4:07pm Unknown Act abdifatah Cardiomyopathy September 14, 2023 1:17pm Unknown Acti ve Lumbar spondylosis September 07, 2024 10:38am Unknown Active Class 1 obesity with body ma ss index (BMI) of 30.0 to 30.9 in adult January 05, 2025 1:47pm Unknown Ac tive Cholelithiasis December 11, 2021 2:15pm Unknown A ctive Right lateral abdominal pain December 11, 2021 2:15pm Unknown Active Abnormal thyroid blood test November 14, 2023 3:14pm Unk nown Active Hypomagnesemia November 10, 2023 5:00am Unknown Act abdifatah Inactive/Resolved Problems Problem Diagnosis/Recorded Date Onset Date Stat us Chest pain September 12, 2023 3:09pm Unknown Resolv ed Atrial flutter with rapid ve ntricular response September 12, 2023 3:09pm Unknown Resolved Medications Medication Status Dose Units Route Directions Qty Days Refills S tart Date Stop Date End Date Reason(s) Instructions Adherence Omeprazole 20 mg capsule,delayed release(DR/EC) Discon tinued 0 .ROUTE.NCEIGON968Yrwge 2023 8:09amSeptember 2023 11:36amtake 1 capsule by mouth once dailyTemazepam 30 mg zocfoujAegajsoqpnua01YNGDKupds92949Qahaz 2023 6:52amMay 2023 12:55pmPrimary insomnia Primary insomniaMetformin 500 mg tabletDiscontinued0.ROUTE.GEOANGA3181Cqtpz 2023 9:13amApril 2024 11:01amtake 1 tablet by mouth twice a day with mealsLisinopril 5 mg tabletDiscontinued0.ROUTE.UAYKYWR475Svf 2023 8:36am November 05, 2023 11:26amHypertension Essential (primary) hypertensiontake 1 tablet by mouth once dailyMiscellaneous Medical Supply miscDiscontinued0.Vrtuu07Eqcg 2023 7:33amJuly 2023 1:21pmAtrial fibrillation Impaired mobility Generalized weakness Unspecified atrial fibrillation Other reduced mobility Weakness Hospital bedAs directedFolic Acid 1 mg oawihdIjsyuyxgnmwn1YITMOluqy14825Jpxy 2023 6:36amJanuary 13th, 2025 7:38amCobalamin deficiency Deficiency of other specified B group vitaminsNortriptyline 50 mg capsule Pyckwbegxlyc893CUJAKkoqu126816Gxki 2023 6:37amJuly 2023 1:05pm Temazepam 30 mg blzbdfwUgjcgyrihjgs81UMUMPkmbd50476Mjvp 2023 3:42pmAugust 2023 11:39amPrimary insomnia Primary insomniaMiscellaneous Medical Supply miscDiscontinued0.Iybrw11Afij 2023 1:22pmJuly 2023 1:25pmAtrial fibrillation Impaired mobility Generalized weakness Unspecified atrial fibrillation Other reduced mobility [facility]ness [facility] miscDiscontinued0.Route10 November 26, 2023 1:24pmDecember 2023 11:40amAtrial fibrillation Impaired mobility Generalized weakness Unspecified atrial fibrillation Other reduced mobility Weakness [facility] BedApixaban (Eliquis) 5 mg byfzcsDkdggmnqvwcc9POSGExdqa geuuo6334Htnuir 6th, 2024 12:05pmMarch 2024 10:49amAtrial fibrillation Unspecified atrial fibrillationMagnesium Oxide (Magox) 400 mg (241.3 mg magnesium) jgbasbPmirjpvhdwde201QJVNXxwnk zvrtj900Ynkzne 2023 12:06pm January 29, 2024 9:23amHypomagnesemia HypomagnesemiaTemazepam 30 mg efwehyhHeprlwfjkvee09FJVKMegvx89653Otmbti 2023 11:39amSeptember 2023 12:58pmPrimary insomnia Primary insomniaInsulin Lispro 100 unit/mL insulin zsfWocqqgxaavep5XYQNPTFcqtms meals and at uuxawyh391Lwwlzf 2023 3:11pmApril 2024 11:04amType 2 diabetes mellitus with hyperglycemia Type 2 diabetes mellitus with hyperglycemiasubcutaneously before meals and at bedtime; 1:50 corrective scale (expect up to 20 units/day)Omeprazole 20 mg capsule,delayed release(DR/EC)Discontinued0.ROUTE.RWNILHX346Czhrplvqj 2023 11:36amMay 2024 11:44amtake 1 capsule by mouth once dailyFlash Glucose Sensor (Freestyle Brent 14 Day Sensor) kitDiscontinued0.ROUTE.KOSUEBUGP894 January 09, 2024 11:00pmSeptember 2024 6:04amType 2 diabetes mellitus with hyperglycemia Type 2 diabetes mellitus with hyperglycemiaAs directed Change every 14 days Temazepam 30 mg rlqnjapMkccirhtprrh00YVZSTgpwq41923Pkkwzshpu 2023 12:58pm February 18, 2024 3:31pmPrimary insomnia Primary insomniaMagnesium Oxide 400 mg (241.3 mg magnesium) tabletDiscontinued0 .ROUTE.FIQDWFE2809Pkauhkv 2023 9:22amMay 2024 8:48amHypomagnesemia HypomagnesemiaTAKE 1 TABLET BY MOUTH TWICE A DAYTemazepam 30 mg capsule Atgwavhmwgcv81DZQCIhydw45433Ytugbfa 22nd, 2024 3:31pmNovember 2023 4:37pm Primary insomnia Primary insomniaTemazepam 30 mg ekgstzgGmpgmamgtzor42HHYGWlafb52783Sxktosod 2023 4:37pmDecember 2023 1:42pmPrimary insomnia Primary insomniaTemazepam 30 mg kiihrltAkfzndwfsltf14ZVVUDuxmv65673Zqusyqfj 2023 1:42pmJanuary 2024 10:27amPrimary insomnia Primary insomniaFolic Acid 1 mg tabletActive0.ROUTE.WKONUFO459Emwipxf 2024 7:37amCobalamin deficiency Deficiency of other specified B group vitaminsTAKE 1 TABLET BY MOUTH EVERY DAY Complies with drug therapyDonepezil 10 mg pegxzpYrbgyx84WKXZGgapb350Vxjbl 2024 12:02pmImpaired cognition Other symptoms and signs involving cognitive functions and awarenessComplies with drug therapyMemantine 10 mg qutisrVapovi94MHTZJdrqj kudsw2157Dfhex 2024 12:03pmImpaired cognition Other symptoms and signs involving cognitive functions and awarenessComplies with drug therapyNortriptyline 25 mg hdahxplXkzxvt19NRCWRwgep at fqfaxfd766Rwdyz 2024 12:03pmSleep disorder Sleep disorder, unspecifiedComplies with drug therapyPregabalin 300 mg capsule Lbluqpuyeqhw218HQRVFrqac02705Vwqow 2024 12:03pmJune 2024 2:16pm Peripheral arterial disease Peripheral vascular disease, unspecifiedApixaban (Eliquis) 5 mg tablet Discontinued0.ROUTE.ZYKHPAH4012Lslnz2024 10:49amSeptember 2024 7:34amAtrial fibrillation Unspecified atrial fibrillationTAKE 1 TABLET BY MOUTH TWICE A DAYCephalexin 500 mg pimlunlAzjdbsrjvlir670IBWEPpcti 8 rhsmt114Smrrh 2024 11:00pmMar 2024 10:18amUrinary tract infection Urinary tract infection, site not specifiedSimvastatin 20 mg ltfygmTmfgsy37DSGU Ahytp6696Otuic 2024 11:37amPeripheral arterial disease Peripheral vascular disease, unspecifiedComplies with drug therapyMagnesium Oxide 400 mg (241.3 mg magnesium) tabletActive0.ROUTE.UMJCXVT0039Dag 7th, 2025 8:48amHypomagnesemia HypomagnesemiaTAKE 1 TABLET BY MOUTH TWICE A DAYComplies with drug therapy Bupropion Hcl 150 mg tablet extended release 24 hrDiscontinued0.ROUTE.OSWRSRS866 September 16, 2024 9:37amSeptember 2024 12:40pmChronic major depressive disorder Major depressive disorder, single episode, unspecifiedTAKE 1 TABLET BY MOUTH EVERY MORNINGOmeprazole 20 mg capsule,delayed release(DR/EC)Active0.ROUTE .LVDTMWE889Ytmonl 2024 6:53amTAKE 1 CAPSULE BY MOUTH EVERY DAYComplies with drug therapyFlash Glucose Sensor (Freestyle Brent 14 Day Sensor) kitActive0 .ROUTE.WORMKUQDX046Vfcrszqsm 2nd, 2025 6:04amType 2 diabetes mellitus with hyperglycemia Type 2 diabetes mellitus with hyperglycemiaAs directed Change every 14 days Apixaban (Eliquis) 5 mg tabletActive0.ROUTE.XHRNPHI0514Mzdoorjiw 3rd, 2025 7:34amAtrial fibrillation Unspecified atrial fibrillationTAKE 1 TABLET BY MOUTH TWICE A DAYComplies with drug therapySertraline 25 mg cswdscWbzwzuvkerob64ZFUXYitct28703Avovvfzde 2024 10:49amSeptember 16th, 2025 1:36pmDepression Depression, unspecifiedInsulin Glargine U-300 Conc (Toujeo Solostar U-300 Insulin) 300 unit/mL (1.5 mL) insulin hiwWssulq58PLMSQIJNKDKlfxa rupsxmx91 January 13, 2025 9:03amType 2 diabetes mellitus Type 2 diabetes mellitus with other circulatory complications care home (current) use of insulinComplies with drug therapySertraline 50 mg zpdeogTzwlty62VWPKPbulv33664Mlyavvj 2024 6:47amDepression Depression, unspecifiedUnknownTemazepam 30 mg qcuqicrLrrastqckish04HSHWQfxztUdnr 2022 11:00pmApril 2023 6:52amInsulin Lispro 100 unit/mL Insulin Pen Discontinuedsliding scale doseSUBCUTBefore meals and at bedtimeJune 2022 11:00pmFebruary 2023 8:13amInsulin Glargine U-300 Conc (Toujeo Solostar U- 300 Insulin) 300 unit/mL (1.5 mL) insulin penDiscontinuedUNITSUBCUTJune 2022 11:00pmFebruary 2023 8:13amInsulin Glargine U-300 Conc (Toujeo Solostar U-300 Insulin) 300 unit/mL (1.5 mL) insulin cuyIqpgbgatjhlp90MVWEVBKLWH DailyFebruary 2023 8:03amJuly 2023 3:13pmInsulin Lispro 100 unit/mL insulin pwiPsbvvyvsvrtx8OXIUYNMduovn meals and at bedtimeFebruary 2023 8:05amAugust 2023 3:14pmsubcutaneously before meals and at bedtime; 1:50 corrective scale (expect up to 20 units/day)Amiodarone 200 mg tabletDiscontinued 200MGPOTwice dailyJuly 2023 11:00pmDecember 2023 9:39amMetoprolol Succinate 50 mg Tablet Extended Release 24 PvOtxjytsftvio78XCCRJiona times daily Thuy 2023 11:00pmDecember 17th, 2024 9:40amCefuroxime Axetil 500 mg tablet Oxdzpouywkqf825RXKUSwtva wssuw1527Flpkfkk 2024 12:00amApril 2024 9:10amSimvastatin 20 mg TogxojTnryplgpvksr11BRKBXpgqc498Viqwzic 2024 10:26amMarch 2024 11:37amOmeprazole 20 mg capsule,delayed release(DR/EC) Wpsnldgkvvtx60FSRR6 time zorrv038Lkz 2024 11:44amAugust 2024 6:53am take 1 capsule by mouth once dailyMultivitamin GwtdvpDmxwsjlnkyfy8GCCUJUaowo dailyOctober 2020 11:00pmFebruary 2023 8:13amPioglitazone 15 mg MggzcxCxlmiiohaxab31UUMLSqubzNzumcqs 2020 11:00pmDecember 2023 12:57pmMetformin 500 mg LdezpnGfzaeujmnsqt686VYLJGahwo dailyOctober 2020 11:00pmApril 2023 9:13amCyanocobalamin (Vitamin B-12) (Vitamin B-12) 1,000 mcg YpwyvnNjnqucfljiuv7127XOQNAMcissKhztxjk 2020 11:00pmAugust 2021 4:58amAspirin 81 mg Tablet,Delayed Release (Dr/Ec)Wxpivh86VWGXDvhpnYjdmlch 2020 11:00pmComplies with drug therapyTemazepam 30 mg CmxendpLgglbcrypkdx64CPUF Daily at bedtimeOctober 2020 11:00pmAugust 2021 5:00amSimvastatin 20 mg AewgkwGxkrpdzvwrfq85RYLNYoofjFterkqs 2020 11:00pmJanuary 2024 10:27amLisinopril 10 mg ChaqtnUzbfftgbnznd2LJVSZeiwePfwifod 2020 11:00pm June 12, 2023 8:13amDocusate Sodium (Stool Softener) 100 mg Capsule Uhcayzgginhr294QXOFHditu times dailyOctober 2020 11:00pmFebruary 2023 8:13amFolic Acid 1 mg XpqageZlitmpibgrzf0ZUCNFvjeoIvocpoa 2020 11:00pmJune 2023 6:38amLoratadine 10 mg ZzmcjlCtzgswnwblli54YSEMGlfae February 08, 2021 11:00pmJune 2022 11:16amNortriptyline 50 mg Capsule Wmdwladauedx68ATECOszhn dailyM[facility] 2020 11:00pmFebruary 2023 8:13amMetoclopramide Hcl 10 mg BauzzqCokhjhorcqkf50ANVBQkzvwGyhtexp 2020 11:00pmJun 2022 11:15amInsulin Lispro (Admelog Solrehabilitation hospital of southern [facility]xicoar U-100 Insulin) 100 unit/mL Insulin FcnVfizxnhtoizu3fiesxaj scale doseSUBCUTUse as Directed February 08, 2021 11:00pmJun 2022 11:17amOmeprazole 20 mg Tablet,Delayed Release (Dr/Ec)Fzzjtcyqimnh94UODOEcbuoDrijxkp 2020 11:00pmCl[facility] 2023 8:09amEmpagliflozin (Jardiance) 25 mg TjnyemFklttadperuc33GPKPHvkkyZiywcpd 2020 11:00pmDeceer 2023 12:59pmSemaglutide (Ozempic) 0.25 mg or 0.5 mg(2 mg/1.5 mL) Pen KbuebfuhIxvzukuqbdcx3HQMUJUXLqigrr weekMun[facility] 2020 11:00pm April 28, 2024 11:39amSundayNortriptyline 50 mg oxzmmvxFwzcvwfdglyd31QEID Twice dailyFebruary 2023 8:07amFebruary 2023 7:10pmDocusate Sodium (Stool Softener) 100 mg oxzmrmpDkdhnliwykep906IUPHDoepp times dailyFebruary 2023 8:08amFebruary 2023 3:43pmLisinopril 10 mg tabletDiscontinued 2.5MGPODailyUniversity Of [facility] 2023 8:09amFebruary 2023 3:42pmMultivitamin qeknviBqwere3IOXCNSawueAmozjdji 2023 8:10amComplies with drug therapy Docusate Sodium (Stool Softener) 100 mg cebaqmrRrqpqkkvqfmt227MMNTNccwz as needed for constipationFebruary 2023 3:41pmOctober 2024 10:09am Nortriptyline 50 mg xjrdbwwWkkecpdvoctg781RERZSbfqjJpplhbyr 2023 7:08pm October 16, 2023 6:38amAcetaminophen 325 mg JalkrjFozkbklmezcv837YOKUNdjgg 6 hours as needed for Pain Scale 1 - 3 or duvdt873Vhigeo 2021 11:00pmAugust 2021 4:59amCefuroxime Axetil 500 mg ogcsdoGpnbwaujvgal535FBBYJwjmg daily63 0August 2021 11:00pmJune 2022 11:16amApixaban (Eliquis) 5 mg Tablet Raoxamtenkdb3HFDNWwqky usuel345Psh 2023 11:00pmAualbuquerque indian dental clinict 2023 12:06pm Metoprolol Succinate 50 mg Tablet Extended Release 24 GsSrzkosbtodlf24RHGPMuvau 300May 2023 11:00pmJuly 2023 12:04pmMagnesium Oxide (Magox) 400 mg (241.3 mg magnesium) yciphpMawrbmoyvhzv692UGTUAtero890Hgg 2023 11:00pmJuly 2023 1:05pmMetoclopramide Hcl 10 mg cttjzgXucmlhwtyobm79ZCEVDhrzg at bedtimeFebruary 2023 12:00amFebruary 2023 5:17pmLisinopril 2.5 mg tabletDiscontinued2.5MGPODailyFebruary 2023 12:00amFebruary 2023 5:17pmflash glucose sensor (FreeStyle Brent 14 Day Sensor)Discontinued.Route June 12, 2023 12:00amMarch 2023 6:32amflash glucose sensor (FreeStyle Brent 14 Day Sensor)Discontinued.Routebruary 2023 12:00amJuly 2023 9:09pmType 2 diabetes mellitus Type 2 diabetes mellitus without complicationspen needle, diabetic (Sure-Fine Pen [place])Discontinued.Routebruary 2023 12:00amSeptember 2024 12:32pmMiscellaneous Medical Supply miscDiscontinued0.Odnpm78Jxi 2023 11:00pmJune 2023 7:33amNew onset atrial flutter Impaired mobility Unspecified atrial flutter Other reduced mobility Hospital bedAs directedTemazepam 30 mg hjyagatGepizutmfevv56NNNKJiqsx29716Hpr 2023 12:54pmMay 2023 12:57pmPrimary insomnia Primary insomniaTemazepam 30 mg jczvwsmJrgsgwtdnsnd88BIWUQfnvh92320Oub 2023 12:56pmJuly 2023 3:43pmPrimary insomnia Primary insomniaLisinopril 5 mg wxosfiXygoizjqvcch2ZUIRPrkpkCnro 2023 11:00pmDecember 2023 11:37amPregabalin (Lyrica) 150 mg capsuleDiscontinued 150MGPOTwice dailyJuly 2023 11:00pmSeptember 2023 2:40pmMagnesium Oxide (Magox) 400 mg (241.3 mg magnesium) dvnrjzGizfamqfwexg686QJXUJuhrt daily30 0July 2023 1:01pmAugust 2023 12:06pmNortriptyline 50 mg capsule Wfrjcipkocdx61BRZIJweql85108Zyqi 2023 1:01pmOctober 2023 11:05am Miscellaneous Medical Supply miscDiscontinued0.Urgsh86Xess 2023 1:20pmJuly 2023 1:23pmAtrial fibrillation Impaired mobility Generalized weakness Unspecified atrial fibrillation Other reduced mobility Weakness Hospital bedAs directedSemaglutide (Ozempic) 1 mg/dose (4 mg/3 mL) pen injector Avuuzjfkidgb0CMAIYTHNhbwzg weekce2023 12:00amDecember 2023 12:57pmLidocaine 5 % tupifppiGeksclxgqjiv6ECZWCAWZFKBVSXpqyh as needed for pain April 28, 2024 12:00amApril 2024 9:11amMemantine 10 mg tablet Whtlvnpwwenr25BZPMUhtyu dailyApril 28, 2024 12:00amMarch 2024 12:05pm Nortriptyline 25 mg xjyrwsmUflyzcloghai24ACWRFpqrv at bedtimeApril 28, 2024 12:00amMarch 2024 12:05pmDonepezil 10 mg miwubzHioxnwprgpkz00PQZNZaneb April 28, 2024 12:00amMarch 2024 12:05pmSemaglutide (Ozempic) 2 mg/dose (8 mg/3 mL) pen uymlrdijMwsicm5QRCXYMAVizsuu buqc33TikztcbqApril 28, 2024 12:00amType 2 diabetes mellitus with hyperglycemia Type 2 diabetes mellitus with hyperglycemiaComplies with drug therapy Empagliflozin (Jardiance) 25 mg cpxnorHuopgy09QRFKHgurq284Uwcjapqb 31st, 2024 12:58pmType 2 diabetes mellitus with hyperglycemia Type 2 diabetes mellitus with hyperglycemiaComplies with drug therapyInsulin Glargine U-300 Conc (Toujeo Solostar U-300 Insulin) 300 unit/mL (1.5 mL) insulin ihqIrdtqqhllzcj52VXDVXJBQLPVrayl39Tqrmxidy 31st, 2024 12:59pmSeptember 2024 12:43pmType 2 diabetes mellitus Type 2 diabetes mellitus with other circulatory complications 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 (current) use of insulinCarvedilol 12.5 mg haeyswSuukch31.5MGPOTwice dailyApril 14, 2024 12:00amComplies with drug therapyPen Needle, Diabetic (Novofine 32) 32 gauge x 1/4 needleActive0.ROUTE.PBHGGLMQA3434Eedsj 2024 11:00pmType 2 diabetes mellitus Type 2 diabetes mellitus with other circulatory complications care home (current) use of insulinAs directed four times a day whichever brand is covered by insurance pleaseMetformin 500 mg tablet Discontinued0.ROUTE.TYBGMKP9793Fuoxl 2024 11:01amSeptember 2024 1:46pmDiabetes mellitus Type 2 diabetes mellitus without complicationstake 1 tablet by mouth twice a day with mealsInsulin Lispro 100 unit/mL insulin kjgWsyiyv4VREFWGJscgae meals and at ezadhgc371Cpxnu 2024 11:03amType 2 diabetes mellitus with hyperglycemia Type 2 diabetes mellitus with hyperglycemiasubcutaneously before meals and at bedtime; 1:40 corrective scale (expect up to 20 units/day)Complies with drug therapyDoxycycline Hyclate 100 mg pfkpwtHyhbwmvfdqsx684RQMOYymlx dailyAugust 2024 11:00pmSeptember 2024 12:40pmAmoxicillin-Pot Clavulanate 875-125 mg ykychfBltmqcrmyoud1GLCJCNxiap dailyAugust 2024 11:00pmSeptember 2024 12:40pmSertraline 25 mg immacnCbgwvlledsuw81RTFSPnyyk46214Wrpwpy 2024 11:00pmpt2024 10:50amDepression Depression, unspecifiedEpinephrine 0.3 mg/0.3 mL auto-injectorActive0.3MLSUBCUT every 5 to 15 minutes as needed for allergy to asji6241Fmanfi 2024 11:00pm Allergy to honey bee venom Bee allergy statusdo not exceed 2 doses per episodeComplies with drug therapy Tramadol 50 mg fgkqssLwasyn83MPPASpbnj daily as needed for painSept2024 11:00pmComplies with drug therapyInsulin Glargine U-300 Conc (Toujeo Solostar U-300 Insulin) 300 unit/mL (1.5 mL) insulin lpvSbapdiyfrrmy75RMFNWXTYFV Every morningpt2024 12:41pmpt2024 1:45pmType 2 diabetes mellitus Type 2 diabetes mellitus with other circulatory complications 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 (current) use of insulinInsulin Glargine U-300 Conc (Toujeo Solostar U-300 Insulin) 300 unit/mL (1.5 mL) insulin jwyPzkutkttmbcx85HXWBWLVIHHFbmom 2024 1:45pmSeptember 2024 9:04amType 2 diabetes mellitus Type 2 diabetes mellitus with other circulatory complications care home (current) use of insulinMetformin 500 mg tabletActive0.ROUTE.COMPLEX 1800January 05, 2025 1:46pmDiabetes mellitus Type 2 diabetes mellitus without complicationstake 1 tablet by mouth twice a day with mealsComplies with drug therapyFlash Glucose Sensor (Freestyle Brent 14 Day Sensor) kitDiscontinued0.ROUTE.XBGTTJMVI83Ziriu 2023 11:00pmDecember 2023 11:40amType 2 diabetes mellitus Type 2 diabetes mellitus without complicationsAs directed Change every 14 days Lisinopril 5 mg hjdrkyBcpyiuzwrmsp7ZKDDHtrjtDdz 2023 11:00pmMay 2023 8:36amHypertension Essential (primary) hypertensionCyanocobalamin (Vitamin B-12) 1,000 mcg capsule Exrvtv1379IJFFOCxvlkYufc 2023 11:00pmComplies with drug therapyInsulin Glargine U-300 Conc (Toujeo Solostar U-300 Insulin) 300 unit/mL (1.5 mL) insulin otwMhuvgbzgotxn37TCFKNATWFHHpoxg46Ovzi 2023 3:09pmDecember 2023 12:59pmType 2 diabetes mellitus Type 2 diabetes mellitus with other circulatory complications 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 (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) use of insulinPregabalin 300 mg vuyrxcgIksudfulywql173RHFX DailySeptember 2023 11:00pmMarch 2024 12:05pmAmoxicillin-Pot Clavulanate 875-125 mg tabletDiscontinuedTABPOSeptember 2023 11:00pm April 14, 2024 9:39amCyclobenzaprine 10 mg vjrizxFtanoivzwgvn68SUJBZl Directed as needed for muscle spasmSeptember 2023 11:00pmJanuary 2024 10:27amFurosemide 20 mg umclymIvztdu25WMQRRzhle 48 hoursJanuary 2024 12:00amComplies with drug therapyNicotine 21 mg/24 hr patch 24 hourDiscontinued1 QTAJDDEOSGFTRWACsusg739Dekeisn 2024 12:00amApril 2024 9:11amCigarette nicotine dependence Nicotine dependence, cigarettes, uncomplicatedL. acidophilus/Bifid. animalis (Daily Probiotic)Zewnhydewnga1CZLIMAugjgOmlpx 2024 11:00pmAugust 2024 12:58pmBupropion Hcl 150 mg tablet extended release 24 foDxyouzhbllhs133TQ POEvery qdwuqxh733Xxopn 2024 11:00pmMay 2024 9:38amChronic major depressive disorder Major depressive disorder, single episode, unspecifiedPregabalin 300 mg capsule Smqpgs197NWISMlngp at bedtimeJune 2024 2:13pmPeripheral arterial disease Peripheral vascular disease, unspecifiedComplies with drug therapyKetoconazole 2 % jjmhcqdNzlrkn8GMFKBIOBQNRESAl DirectedSept2024 11:00pmComplies with drug therapySertraline 50 mg jzgqhlAmxbjmroocoz33DUHMRfkko00678Fijhhjbvy 16th, 2025 1:35pmOctober 2024 6:47amDepression Depression, unspecified Immunizations Immunization Event Date Not Given Reason Dose Number 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 Lending 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 Lot Number Reason(s) Given Vaccine Information Statement (VIS) Detail Administration Location Measles, Mumps, and Rubella Virus Vaccine Decemb er 2001 Trivalent Influenza VaccineDecember 2Patient Refused Procedures Procedure Date Performed Status DH EGD (Not Applicable) February 24, 2025 7:35a m active CT lung screening February 02, 2025 11:09am comp leted Relevant Diagnostic Tests and/or Laboratory Data Laboratory Results Test Collection Date/Time Result Date/Time Result Interpretation Reference Range Result Comment Performing Site Bedside Hemoglobin A1c January 05, 2025 12:30pm Sep tember 2024 12:49pm 8.6 % Bedside GlucoseSept2024 12:48pmSept2024 12:90vu571 Diagnostic Imaging Reports Author Edgar Segovia [facility] HospitalAuthoredOctober 2024 12:32pmReportDictated Date/TimeDictated ByStatusRadiology ReportOctober 2024 12:32pmJosegwyn Segovia Jr DOcompleteProMedica [place] [address] CT Scan Report Signed Patient: Kerry Gay MR#: [id number] : 1955 Acct:[id number] Age/Sex: 69 / F ADM Date: 5 Loc: CT Room: Type: [facility] Attending Dr: CHERYL Palacios APRN Copies to: Shantel Norton APRN, CNP~ Ordering [...] months. Impression dictated by: Edgar Segovia Jr., D.OKenisha 02/02/2025 12:36 PM Dictation Location: [place] [address] Transcribed By: AMY 02/02/25 1236 Dictated By: Edgar Segovia Jr, DO 02/02/25 1232 Signed By: <Electronically signed by Edgar Segovia Jr, DO in OV> 02/02/25 1236 Vital Signs Vital Reading Result Reference Range Collection Date/Time Height 67 [in_i] December 15, 2024 12:47ocBbxzol17.90 kgAugust 2024 12:52pmBody Temperature 96.4 [degF]97.6-99.0August 2024 12:52pmHeart Rate79 /bvr87-610Cnskti 2024 12:52pmOxygen saturation by Pulse iqtfdsut93 %95-100August 2024 12:52pmBP Ghybsikp97 mm[Hg]100-140August 2024 12:52pmBP Wwlznjuiw39 mm[Hg] 60-100August 2024 12:52pmBMI (Body Mass Index)30.7 kg/u8Detkxf 2024 12:05nfQlhbch90 [in_i]January 05, 2025 12:22auAylmyu08.50 kgSept2024 12:32pmHeart Rate79 /rip11-309Gixavshes 9th, 2025 12:32pmRespiratory rate18 /rng47-36Mtdxtobax 9th, 2025 12:32pmOxygen saturation by Pulse ysmhzwys23 % 95-100Sept2024 12:32pmBP Wljzzznf073 mm[Hg]100-140Sept2024 12:32pmBP Baptiirdc59 mm[Hg]60-100pt2024 12:32pmBMI (Body Mass Index)30.5 kg/k3Mepfomotf2024 12:69vkXxekmq45 [in_i]January 12, 2025 1:53agJzbuvh86.45 kgSept2024 1:23pmBody Epkxchikfsn05.0 [degF] 97.6-99.0Sept2024 1:23pmHeart Rate88 /ptx65-899Llgsaejfr 16th, 2025 1:23pmOxygen saturation by Pulse avlpblex49 %95-100pt2024 1:23pmBP Dsxawbdi865 mm[Hg]100-140pt2024 1:23pmBP Szqpzltgf64 mm[Hg]60-100 January 12, 2025 1:23pmBMI (Body Mass Index)30.5 kg/u6Wiiztzwvr 2024 1:20pgFcyqqv75 [in_i]February 11, 2025 10:14khAxxqti46.08 kgOctober 2024 10:14am Advance Directives Advance Directive Response Recorded Date/ Time Advance Directives No December 4:05pm Insurance Providers Guarantor Kerry Cheekn [address].Home Phone: Coverage Status Update:2024 Payer Group Member ID Coverage Type Subscriber Relationship to Subscriber Effective Date Expiration Date Medicaid [id number] C Keaton Id: [id number] [address] [id number] Home Phone: Email: [email or web address] Medicaid Id: [id number] C [place] Id: [id number] [address] [facility] [address] Home Phone: Email: [email or web address] [email or web address] Encounter Location(s) Arrival/Admit Date Discharge/Departure Date Discharge/Departure Disposition Provider(s) Departed Physician/ Provider Office Visit -[facility] December 15, 2024 1:46pm December 15, 2024 2:38pm Discharged to home care or self care (routine discharge) Shantel Norton APRN CNP Departed Clinical -Sleep Lab December 24, 2024 7:39pm December 24, 2024 7:40pm Discharged to home care or self care (routine discharge) Samm Medina MD Non-patient / Non-visit -[facility] December 31, 2024 12:00am Samm Medina , [facility] 1:23pmSept2024 2:15pmDischarged to home care or self care (routine discharge)BENIGNO Guerrero-CDeparted Physician/Provider Office Visit-[facility]2024 2:19pmSeptember 2024 3:04pmDischarged to home care or self care (routine discharge)NITZA Palaciosparted Clinical-[facility] 2024 12:06pmOctober 2024 12:07pmDischarged to home care or self care (routine discharge)NITZA Palaciosparted Referred-[facility] February 10, 2025 10:00amOctober 2024 10:01amDischarged to home care or self care (routine discharge)Manjit Gleason MD Recent Diagnosis Onset Date Admit Date Allergy [...] 05, 2 025 1:23pm Hypertension Unknown January 05 025 1:23pm Peripheral neuropathy Unknown January 05, 2025 1:23pm Type 2 diabetes mellitus Unknown 2024 1:23pm Vitamin B 12 deficiency [facility] 1:23pm Current every day smoker Unknown 2024 2:19pm Depression Unknown January 12, 2025 [...] 30.9 in adultacuteSeptember 2024 1:23pmDietary counseling and surveillanceacuteSept2024 1:23pmHyperlipidemiaacuteSeptember 2024 1:23pmHypertensionacuteSeptember 2024 1:23pmPeripheral neuropathy acuteSeptember 2024 1:23pmType 2 diabetes mellitusacuteSeptember 2024 1:23pmVitamin B 12 deficiencyacuteSeptember 2024 1:23pmCurrent every day smokeracuteSeptember 2024 2:19pmDepressionacuteSeptember 2024 2:19pm Lesion of spleenacuteSept2024 2:19pm Plan of Treatment Author Shantel Norton [facility] HospitalAuthoredgust 2024 10:14amPatient is not suicidal or homicidal at this [...] with Dr. Avilez and Pain management through [facility]. Patient is postmenopausal and therefore at risk [...] applicable. Code G0296 Follows with Angelique Russell Sole Molding Machine Operator for diabetes management Follows with wound care at the [facility] every 2-[address] Martinez Follows with vascular once per year. Reviewed most recent office note Follows with Dr. Kincaid - neurology currently taking Lyrica. Pt is on Eliquis. Atrial fibrillation is currently stable, Unaware of palpitations, or shortness of breath. No chest pain. Follows with Cardiology. Patient is due for her routine yearly screening mammogram. Screening mammogram ordered today. Author Angelique Leonardo [facility] HospitalAuthoredSeptember 2024 1:50pmType 2 diabetes mellitus ? Clinical Notes: 1. Uncontrolled, a Type 2 [...] diabetes medications consistently. Recommend pt scan cgm ac, hs, reviewed humalog corrective dosing. Continue: metformin 500 mg 1 po bid jardiance 25mg po qd ozempic 2 mg sq once weekly increase Toujeo 22 to 23 units qam, humalog 1:40 ac, hs. Reviewed with pt how to titrate [...] hyperglycemia, or diabetes medication issues. 6. Prescriptions: [facility]- metformin sent. 7. Prescriptions will not be [...] see above see above Author Shantel Norton [facility] HospitalAuthoredSeptember 2024 2:00pmDiscussed with pt and her daughter will proceed with further imaging of the [...] XR dexa axial skeleton December 16, 2024 9:38am MM screening mammo BI w/CADAugust 2024 9:38am Future Visits Future appointment information is unavailable Future Procedures Procedure Name Ordered Date Scheduled Date US spleen January 12, 2025 1:40pm Future Medications Future medication information is unavailable Patient Instructions Instruction Admit Date Diabetes and heart disease December 1:23pm
--- OUTSIDE RECORDS SUMMARY | 2025-03-17 11:42 | XMS_ITS | Clinical Summary ---
Author Organization [facility] Address [address] [address] Phone Care Team Providers Care Robotics Mechanic Name Role Phone Shantel Norton APRN-COMPUTATIONAL PHYSICIST Primary Care Pro vider Allergies Active AllergyReactionsCriticalityNoted DateCommentsSulfa (Sulfonamide Antibiotics)GI intolerance,Unknown,Nausea/ypfogqux77/30/2019 Medications MedicationSigDispense QuantityRefillsLast FilledStart DateEnd DateStatus semaglutide [...] mg) by mouth once daily. 90 tablet /23711205/22/2025ctive magnesium oxide (Mag-Ox) 400 mg tablet Take [...] daily (morning and late afternoon). 180 tablet ctive Active Problems ProblemNoted DateDiagnosed DateObesity (BMI 30-39.9)12/16/2023Typical atrial sxrdjsf2810/07/2023Nonischemic bnumrrcysbsrhy73/10/8331Ojfurnzt74/21/2024 Overview (09/17/2023): Last Assessment & Plan: Assessment: on Actos, metformin and Humalog. States BG in Am 110-140, Last A1C- 6.5 Uqzagcsstpkcffguyg61/21/2024 Overview (09/17/2023): Last Assessment & Plan: Assessment: on statin Rxkcnntonlcv69/21/2024 Overview (09/17/2023): Last Assessment & Plan: Assessment: controlled on Lisinopril Current tatexo5709/17/2023 Overview (09/17/2023): Last Assessment & Plan: Assessment: Current 40 pack year Resolved Problems ProblemNoted DateDiagnosed DateResolved DateHigh risk medication use11/13/2023 12/30/2024MI 28.0-28.9,adult/ Encounters DateTypeDepartmentCare KrbsZpxexszwhru77/16/2025Refill [address] [phone] Roland Faust MD Hypertension, unspecified type; Nonischemic cardiomyopathy (Multi)12/30/2024 1:40 PM EDTOffice Visit [address] [address] Roland Faust MD Typical atrial [...] InformationValueDate RecordedSex Assigned at BirthNot on fileLegal QylMdslvr76/02/2023 3:01 AM EDTGender Identity Not on fileSexual OrientationNot on file Last Filed Vital Signs Vital SignReadingTime TakenCommentsBlood Cqbxmssy402/7009 1:47 PM EDT Cdvfa0709/03/2025 1:47 PM EDTTemperature--Respiratory Rate--Oxygen Saturation-- Inhaled Oxygen Concentration--Vkbgng81.4 kg (197 lb)12/30/2024 1:47 PM EDTHeight 170.2 cm (5' 7 )12/30/2024 1:47 PM EDTBody Mass Index30.85012/30/2024 1:47 PM EDT Plan of Treatment DateTypeDepartmentCare Team (Latest Contact Info)Ufbixkxjmxj10/21/2026 3:10 PM EDTOffice Visit [facility] [address] [facility] [address] [place] [address] Roland Faust MD [address] [facility] [address] [place] [address] Health MaintenanceDue DateLast DoneCommentsCT Fadopxdhksml07/30/1958Colonoscopy 1957Colorectal Cancer Rkctdmsdg32/30/1958Diabetes: Hemoglobin A1C 1957Diabetes: Urine Protein Enpckqbad58/30/1958FIT-DNA (Cologuard) 1957FIT1957Lipid Panel1957Medicare Annual Wellness Visit (AWV) 1957 3860Sddxejqdknjop68/30/1958Diabetes: Retinopathy Zbepgabre65/30/1968 Hepatitis C Wicphcwku39/30/1976Pneumococcal Vaccine (1 of 2 - PCV)1976 DTaP/Tdap/Td Vaccines (1 - Tdap)11/26/1979RSV High Risk: (Elderly (60+) or Population) (1 - Risk 50-74 years 1-dose series)11/26/2007Zoster Vaccines (1 of 2)11/26/20071941Abokzgvbx33/12/202202/one Density Scan 2022TSH Level507/06/2023Influenza Vaccine (#1)5COVID-19 Vaccine ( - season)2024MMR HfmpbafkOnjofbapw75/05/2002HIB VaccinesAged OutNo longer eligible based on patient's [...] Teams Team MemberRelationshipSpecialtyStart DateEnd Date Shantel Norton, ANGLE SHEAR OPERATOR-COMPUTATIONAL PHYSICIST [address] [place] [address] PCP - GeneralFamily Medicine12/30/24
--- OUTSIDE RECORDS SUMMARY | 2025-03-17 11:44 | XMS_ITS | CCD ---
Author Organization [facility]ini[facility] Care Team Providers Care Trimmer Operator Three Knife Name Role Phone MATTHEW VOSS MD Unavailable [...] Unava ilable DO Rl Villavicencio Emergency Provider [phone] Francesca Santos Attending Unavailable ARLEEN STEPHEN Referring Unavailable Teresa Strong Attending Unavailable ARLEEN STEPHEN Referring Unavailable Teresa Strong Attending Unavailable Teresa Strong Attending Unavailable Sandra Keita Unavailable Tolu Salinas Unavailable DO Sandra Keita Primary Care Provider [phone] DO Sandra Keita Attending Provider [phone] Reyna Dallas Unavailable Brayden Noble [phone] DO Jonas Yoder Primary Care Provider NITZA Russell Attending Provider Keita, Sandra A Primary Care Provider Keita, DO Sandra A Attending Provider Keita, DO Sandra A Primary Care Provider Keita, DO Sandra A Attending Provider NITZA Russell Attending Provider DO Edgar Valenzuela Emergency Provider MD Elva Florian Admit Provider MD Elva Florian Attending Provider [phone] BRENDA Pazher Other Provider Unavailable DO Elly Yoo Other Provider MD Ric Lamar Other Provider MD Jonas Ch Other Provider MD Roland Faust Other Provider MD Manjit Barbosa Other Provider NITZA Fritz Other Provider MD Stephanie Stoll Other Provider MD Jann Kaplan [facility] Other Provider MD Cara Tenorio Other Provider Fidel [facility] Elizabeth [place] Other Provider MD Ashley Cheatham Other Provider Debbie BONNER, Sandra A Primary Care Provider DO Debbie Sandra A Primary Care Provider MD Oz Kincaid Attending Provider MD Jonas Ch Attending Provider DO Rl Villavicencio Emergency Provider DO Jluis Campos Admit Provider DO Jluis Campos Attending Provider Saranya Wright Other Provider Unavailable Fay, PhD Cash Other Provider [phone] DO Jelly Tuttle Other Provider MD John Murillo Other Provider DO Lit Clark Other Provider Dar BANNER Dayana Other Provider DO Roque Isidro Other Provider NITZA Calvo Other Provider CHERYL Medina Other Provider GRADY Ibrahim-Vamsi [place] Other Provider MD Chaka Frye Attending Provider DO Rl Villavicencio Emergency Provider DO Jluis Campos Admit Provider Saranya Wright Other Provider Unavailable Fay, PhD Cash Other Provider [phone] DO Jelly Tuttle Other Provider MD John Murillo Other Provider DO Lit Clark Other Provider Dar BANNER Dayana Other Provider DO Roque Isidro Other Provider NITZA Calvo Other Provider [phone] CHERYL Medina Other Provider GRADY Ibrahim-Vamsi [place] [...] Attending Provider Priscilla Lang MD Attending Provider [phone] Lit Clark DO Other Provider Keita DO, Sandra A Primary Care Provider Keita DO, Sandra A Attending Provider Keita DO, Sandra A Primary Care Provider Roland Faust MD Attending Provider Angelique Russell APRN Other Provider Nataliya Jane APRN Attending Provider Oz Kincaid MD Referring Provider Keita DO, Sandra A Primary Care Provider Rl Villavicencio DO Emergency Provider Wesley Villafuerte PA-C Emergency Provider [phone] Jori Hearn DO Admit Provider [phone] Priscilla Lang MD Attending Provider Amber DO Howardyefri Yarbrough Other Provider Keita DO, Sandra A Attending Provider Roland Faust MD Attending Provider Angelique Russell APRN Other Provider [phone] Nataliya Jane APRN Attending Provider Oz Kincaid MD Referring Provider [phone] Deneen Frost PA-C Attending Provider Keita [...] Provider Keita DO, Sandra A Referring Provider [phone] NO FAMILY, PHYSICIAN Primary Care Provider Daniella Fritz DPM, Karl Attending Provider Shantel Norton APRN Primary Care Provider AshleyacheShantel flores APRN Attending Provider Ashleyachesandra MENTAL HEALTH PROGRAM DIRECTOR-PATTERN REPAIR PERSON, Shantel A Primary Care Pro vider TRABOULJOANNE, MOURHAF Attending Unavailable TRABOULSSI, MOURHAF Referring Unavailable ROHRBACHER, SHANTEL A Primary Care Unavailab le TRABOULSSI, MOURHAF Attending Unavailable TRABOULSSI, MOURHAF Referring Unavailable KEITA, SANDRA A Primary Care Unavailable TRABOULSSI, MOURHAF Attending Unavailable JONAS CH Referring Unavailable KEITA, SANDRA A Primary Care Unavailable Samm Medina MD Attending Provider [phone] Samm Medina MD Other Provider Angelique Russell APRN Attending Provider [phone] Keita, Sandra A Primary Care Unavailable Tray [...] Villavicencio Admitting Unavailable Rl Villavicencio Attending Unavailable zO Kincaid Referring Unavailable Keita, Sandra A Primary [...] OnsetReaction(s) Facility (20 sources)Sulfamethoxazole; Translations: [sulfamethoxazole]Drug Allergy 49-64-5567LbmzyhgNwvpioSelect [facility] [place] [facility] (19 sources)Sulfonamides (Antibiotic); Translations: [SULFA (SULFONAMIDE ANTIBIOTICS)]Allergy to qdzlozwsr16-89-4833QK intolerance, Unknown, Nausea/[facility]iting[facility] ([facility])Sulfonamides (Antibiotic)Drug Dnsiecv85-53-9648DZ intolerance, UnknownC[facility] ([facility] sources)pioglitazone; Translations: [pioglitazone]Drug Yebukxu90-29-5690syz edemaPremier Health [facility] Medications Current Medications MedicationDrug Class(es)DatesSig (Normalized)Sig (Original)3 ML semaglutide 1.34 MG/ML Pen Injector [Ozempic] (20 sources)Start: 21-75-0257xtpfpk 0.5 mg by subcutaneous injection every week Ozempic (1 MG/DOSE) 4 MG/3ML 1mg Subcutaneous once weekly for 28 days Stop ozempic 0.5mg dose Feb, Activeinject 1 mg by subcutaneous injection every weekOzempic (1 MG/DOSE) 4 MG/3ML 1mg Subcutaneous once weekly for 28 days Activeapixaban 5 mg oral tablet (20 sources)Factor Xa InhibitorStart: 07-08-2024 End: 90-21-4933vlwn 1 tablet by mouth twice dailyStart: 09-14-2023 End: 99-76-1549zzwo 1 tablet by mouth twice dailyApixaban (Eliquis) 5 mg tablet Discontinued 5 MG PO Twice daily 180 December 03, 2023 1:05pm July 08, 2024 11:49amaspirin 81 mg delayed release oral tablet (20 sources)Platelet Aggregation Inhibitor, Nonsteroidal Anti-inflammatory Drug Start: 29-00-9805upyv 1 tablet by mouth once dailytake 1 tablet by mouth once dailyAspir-Low 81 MG 1 tablet Orally Once a day Activecarvedilol 12.5 mg oral tablet (20 sources)alpha-Adrenergic Debbie, beta-Adrenergic BlockerStart: 03-09-2024 End: 95-70-4511yxbv 1 tablet by mouth in the morningcarvedilol (Coreg) 12.5 MG tablet Take 12.5 mg by mouth in the morning and 12.5 mg in the evening. Take with meals. 03/09/2024 03/09/2025 ActiveContinuous Blood Gluc Sensor (FreeStyle Brent 14 Day Sensor) misc (20 sources)Start: 45-73-4950Rigqglscea Blood Gluc Sensor (FreeStyle Brent 14 Day Sensor) [facility] [place] 1 SENSOR as directed every 14 days use with DEVICE to MONIT... (REFER TO PRESCRIPTION NOTES). 12/21/2022 Activedocusate sodium 100 mg oral capsule (20 sources)Start: 47-52-1339uvrc 1 capsule by mouth in the morningDocusate Sodium (DSS) 100 MG capsule Take 100 mg by mouth in the morning and 100 mg in the evening.06/12/2023 ActiveStart: 02-09-2021 End: 66-66-4078ewrq 1 capsule by mouth three times dailyDocusate [...] mg oral tablet (20 sources)Start: 02-25-2024 End: 68-48-7184xxvaxqikw (Aricept) 10 MG tablet Indications: Cognitive decline 2 tabs QAM 60 tablet 5 07/21/2024 Activetake 1 tablet by mouth twice daily donepezil (Aricept) 10 mg tablet Take 1 tablet (10 mg) by mouth 2 times a day. ActiveEasy Touch Lancing Device - (4 sources)Easy Touch Lancing Device - as directed Activeempagliflozin 25 mg oral tablet (20 sources)Sodium-Glucose Cotransporter 2 InhibitorStart: 02-09-2021 End: 08-99-8736fdzk 1 tablet by mouth once [id number] 0.3 ml EPINEPHrine 1 mg/ml auto-injector (5 sources)alpha-Adrenergic Agonist, beta-Adrenergic Agonist, Catecholamine Start: 19-08-8453Omdlq Glucose Sensor (Freestyle Brent 14 Day Sensor) kit (20 sources)Start: 04-95-9778Ndezo Glucose Sensor (Freestyle Brent 14 Day Sensor) kit Active 0 .ROUTE .MEDSUPPLY December 29, 2024 7:04am As directed Change every 14 daysStart: 01-10-2024 End: 62-84-4360Gtngu Glucose Sensor (Freestyle Brent 14 Day Sensor) kit Discontinued 0 .ROUTE .MEDSUPPLY 2 January 10, 2024 12:00am December 29, 2024 7:04am As directed Change every 14 daysStart: 36-59-4526Fdpes Glucose Sensor (Freestyle Brent 14 Day Sensor) kit Active 0 .ROUTE .MEDSUPPLY 2 January 09, 2024 11:00pm As directed Change every 14 daysStart: 01-10-2024 Flash Glucose Sensor (Freestyle Brent 14 Day Sensor) kit Active 0 .ROUTE .MEDSUPPLY 2 January 10, 2024 12:00am As directed Change every 14 daysStart: 07-22-2023 End: 79-35-0756Pxnsp Glucose Sensor (Freestyle Brent 14 Day Sensor) kit Discontinued 0 .ROUTE .MEDSUPPLY July 22, 2023 12:00am April 28, 2024 12:40pm As directed Change every 14 daysStart: 07-22-2023 End: 73-29-8543Nhpxv Glucose Sensor (Freestyle Brent 14 Day Sensor) kit Discontinued 0 .ROUTE .MEDSUPPLY July 21, 2023 11:00pm April 28, 2024 11:40am As directed Change every 14 daysStart: 90-63-5091Xdzjq Glucose Sensor (Freestyle Brent 14 Day Sensor) kit Active 0 .ROUTE .MEDSUPPLY 2 July 21 12:00am As directed Change every 14 daysfolic acid 1 mg oral tablet (20 sources)Start: 79-72-2011twbb 1 tablet by mouth once dailyStart: 02-09-2021 End: 90-26-1109gqvj 1 tablet by mouth once dailyfolic acid [...] oral tablet (19 sources)Loop DiureticStart: 05-07-2024 End: 12-40-8645qjpj 1 tablet by mouth every other dayfurosemide (Lasix) 20 mg tablet Indications: Shortness of breath , Edema, unspecified type Take 1 tablet (20 mg) by mouth every other day. 45 tablet 3 05/07/2024 05/07/2025 ActiveStart: .5 ml insulin glargine 300 unt/ml pen injector (20 sources)Insulin AnalogStart: 01-05-2025 End: 75-85-7573dawmrh 23 [IU] by subcutaneous injection once daily in the morningStart: 04-28-2024 End: 36-20-5075qzfnkf 22 [IU] by subcutaneous injection once daily in the morningInsulin Glargine U-300 Conc (Toujeo Solostar U-300 Insulin) 300 unit/mL (1.5 mL) insulin pen Discontinued 22 UNIT SUBCUT Every morning January 05, 2025 1:41pm January 05, 2025 2:45pmStart: 06-12-2023 End: 61-38-5678yjktdy 20 [IU] by subcutaneous injection once dailyInsulin Glargine U-300 Conc (Toujeo Solostar U-300 Insulin) 300 unit/mL (1.5 mL) insulin pen Discontinued 20 UNIT SUBCUT Daily November 14, 2023 4:09pm April 28, 2024 1:59pmStart: 95-63-5587Tqajnk SoloStar 300 UNIT/ML injection inject 20 units subcutaneously as directed 12/12/2022 ActiveStart: 28-83-0880tmwbixp glargine (Toujeo Solostar- 1 unit dial) 300 unit/mL (1.5 mL) injection 20 Units. 12/12/2022ctiveStart: 10-10-2022 End: 03-74-8361Sbfahyl Glargine U-300 Conc (Toujeo Solostar U-300 Insulin) 300 unit/mL (1.5 mL) insulin pen Discontinued UNIT SUBCUT October 10, 2022 12:00am June 12, 2023 9:13amStart: 63-81-5800vjvlmo 20 [IU] by subcutaneous injection once dailyToujeo SoloStar 300 UNIT/ML 20 units once daily Subcutaneous as directed for 90 days (titrate up to30 units/day) Dec, ActiveInsulin Lispro 100 unit/mL insulin pen (20 sources)Start: 09-91-7483Zfmhjwp Lispro 100 unit/mL insulin pen Active 0 SUBCUT Before meals and at bedtime August 20, 2024 12:03pm subcutaneously before meals and at bedtime; 1:40 corrective scale (expect up to 20 units/day) Start: 12-23-2023 End: 08-50-6437Eizclrr Lispro 100 unit/mL insulin pen Discontinued 0 SUBCUT Before meals and at bedtime December 23, 2023 4:11pm August 20, 2024 12:04pm subcutaneously before meals and at bedtime; 1:50 corrective scale (expect up to 20 units/day)Start: 32-61-3299Xflhkri Lispro 100 unit/mL insulin pen Active 0 SUBCUT Before meals and at bedtime December 23, 2023 4:11pm subcutaneously before meals and at bedtime; 1:50 corrective scale (expect up to 20 units/day) Start: 91-42-6812Chmqmyn Lispro 100 unit/mL insulin pen Active 0 SUBCUT Before meals and at bedtime December 23, 2023 3:11pm subcutaneously before meals and at bedtime; 1:50 corrective scale (expect up to 20 units/day)Start: 06-12-2023 End: 11-27-3685Pbiqcgg Lispro 100 unit/mL insulin pen Discontinued 0 SUBCUT Before meals and at bedtime June 12, 2023 9:05am December 23, 2023 4:14pm subcutaneously before meals and at bedtime; 1:50 corrective scale (expect up to 20 units/day)Start: 06-12-2023 End: 43-60-8363Pxjdmqn Lispro 100 unit/mL insulin pen Discontinued 0 SUBCUT Before meals and at bedtime June 12, 2023 8:05am December 23, 2023 3:14pm subcutaneously before meals and at bedtime; 1:50 corrective scale (expect up to 20 units/day)ketoconazole 20 mg/ml medicated shampoo (2 sources)Azole AntifungalStart: ml ketorolac tromethamine 30 mg/ml cartridge (2 sources)Nonsteroidal Anti-inflammatory Drug, Cyclooxygenase InhibitorStart: 01-03-2024 End: 06-24-2696shhnxhvcw (Toradol) injection 30 mgStart: 01-03-2024 End: 43-94-2435nsefbe 30 mg by subcutaneous injection once30 mg, Intramuscular, Once, On Sat01/03/24 at 1745, For 1 dose, SubcutaneousL. acidophilus/Bifid. animalis (4 sources)Start: 67-05-8578lzih 1 tablet by mouth once dailyStart: 08-25-2024 take 1 tablet by mouth once dailyL. acidophilus/Bifid. animalis Active 1 TAB PO Daily August 25, 2024 12:00ammagnesium oxide 400 mg oral tablet (20 sources)Start: 01-29-2024 End: 50-14-1051rlkg 1 tablet by mouth twice dailyStart: 13-38-1131lycc 1 tablet by mouth twice dailyMagnesium Oxide Active 0 .ROUTE .COMPLEX 180 January 29, 2024 10:22am TAKE 1 TABLET BY MOUTH TWICEA DAYStart: 11-18-2023 End: 97-72-0845wwgk 1 tablet by mouth in the morningmagnesium oxide (Mag-Ox) 400 (240 Mg) MG tablet Take 400 mg by mouth in the morning and 400 mg before bedtime. 01/02/2024 ActiveStart: 09-14-2023 End: 54-65-4400xmge 1 tablet by mouth once dailyMagnesium Oxide (Magox) 400 mg (241.3 mg magnesium) tablet Discontinued 400 MG PO Daily September 14, 2023 12:00am November 18, 2023 2:05pmmemantine hydrochloride 10 mg oral tablet (20 sources)D-osmakx-D-aspartate Receptor AntagonistStart: 75-99-2490mrpabpgpz (Namenda) 10 MG tablet Indications: Cognitive decline 1 tab BID 60 tablet 5 07/21/2024 ActiveStart: 04-28-2024 End: 48-22-4708vosqlgucy (Namenda) 10 MG tablet Indications: Cognitive decline 1 tab BID 60 tablet 5 07/21/2024 ActiveStart: 02-25-2024 End: 44-35-4978rzirlligo (Namenda) 10 MG tablet Indications: Cognitive decline 1 tab every day x3-5 days then BID 60 tablet 3 02/25/2024 07/21/2024 Discontinued (Reorder)metFORMIN hydrochloride 500 mg oral tablet (20 sources)BiguanideStart: 08-26-2023 End: 89-48-9660xpnq 1 tablet by mouth twice daily at mealtimeMetformin 500 mg tablet Discontinued 0 .ROUTE .COMPLEX 180 August 20, 2024 12:01pm Aurea 9th, 2025 2:46pm take 1 tablet by mouth twice a day with mealsStart: 02-09-2021 End: 09-95-6057fouGBQZWY (Glucophage) 500 MG tablet Take 500 mg by mouth 08/26/2023 ActiveMiscellaneous Medical Supply (20 sources)Start: 68-81-6868Akxeqzzmsxnxg Medical Supply Active 0 .Route 1 November 26, 2023 2:24pm Hospital BedStart: 11-26-2023 End: 04-26-4556Pzeibsztdwigz Medical Supply Discontinued 0 .Route 1 November 26, 2023 2:22pm November 26, 2023 2:25pm As directedStart: 2023 End: 18-08-2242Oavfsnmrstfvc Medical Supply Discontinued 0 .Route 1 2023 2:20pm November 26, 2023 2:23pm As directedStart: 09-30-2023 End: 46-63-7655Ikngamebztcmi Medical Supply Discontinued 0 .Route 1 September 30, 2023 8:33am 2023 2:21pm As directedStart: 33-39-6480Ceearvamneohl Medical Supply Active 0 .Route 1 September 30, 2023 8:33am As directedStart: 09-17-2023 End: 38-11-8629Jfuldqhzmsjnr Medical Supply Discontinued 0 .Route 1 September 17, 2023 12:00am September 30, 2023 8:33am As directedStart: 07-03-6785Fflqomonuunxk Medical Supply Active 0 .Route 1 September 17, 2023 12:00am As directedMultivitamin preparation (20 sources)Start: 20-85-7213vinh 1 tablet by mouth once dailyMultivitamin Active 1 TAB PO Daily June 12, 2023 9:10amStart: 49-55-4836doak 1 tablet by mouth once dailyMultivitamin Active 1 TAB PO Daily June 12, 2023 8:10am Start: 02-09-2021 End: 16-26-2648ionz 1 tablet by mouth twice dailyMultivitamin Discontinued 1 TAB PO Twice daily February 09, 2021 12:00am June 12, 2023 9:13amStart: 02-09-2021 End: 32-13-0828wfwv 1 tablet by mouth twice dailyMultivitamin Discontinued 1 TAB PO Twice daily February 08, 2021 11:00pm June 12, 2023 8:13amStart: 00-26-1963dmrz 1 tablet by mouth twice dailyMultivitamin Active 1 TAB PO Twice daily February 08, 2021 11:00pmStart: 97-57-3182rmtu 1 tablet by mouth twice dailyMultivitamin Active 1 TAB PO Twice daily February 09, 2021 12:00amtake 1 tablet by mouth once dailyMultivitamin - 1 tablet Orally Once a day Active Multivitamin tablet (20 sources)Start: 28-08-4408nyvi 1 tablet by mouth once dailyMultivitamin tablet Active 1 TAB PO Daily June 12, 2023 9:10am Complies with drug therapyStart: 54-71-3124csnn 1 tablet by mouth once dailyStart: 82-85-4024xykh 1 tablet by mouth once dailyMultivitamin tablet Active 1 TAB PO Daily June 12, 2023 9:10amStart: 76-18-3842iijm 1 tablet by mouth once dailyMultivitamin tablet Active 1 TAB PO Daily June 12, 2023 8:10amnortriptyline 25 mg oral capsule (20 sources)Tricyclic AntidepressantStart: 02-25-2024 End: 17-02-7579qpbw 1 capsule by mouth at bedtimenortriptyline (Pamelor) 25 MG capsule Indications: Neurogenic pain Take 1 capsule (25 mg) by mouth at bedtime 30 capsule 5 07/21/2024 ActiveStart: 06-18-2023 End: 51-43-7995imbj 100 mg by mouth once dailyNortriptyline Discontinued 100 MG PO Daily 180 90 October 16, 2023 7:37am November 18, 2023 2:05pmStart: 01-04-2023 End: 78-84-9684ruvb 1 capsule by mouth once dailyNortriptyline 50 mg capsule Discontinued 50 MG PO Daily 90 90 November 18, 2023 2:01pm February 03, 2024 12:05pmStart: 01-04-2023 End: 96-45-6814vcjn 2 capsules by mouth once daily at bedtimenortriptyline (Pamelor) 50 mg capsule Take 2 capsules (100 mg) by mouth once daily at bedtime. 01/04/2023 12/16/2023 Discontinued (Therapy completed)Start: 02-09-2021 End: 91-06-2135anum 1 capsule by mouth twice dailyNortriptyline 50 mg capsule Discontinued 50 MG PO Twice daily June 12, 2023 9:07am June 18, 2023 8:10pmtake 1 capsule by mouth every twenty-four hoursNortriptyline HCl 50 MG 1 capsules Orally Once a day Activeomeprazole 20 mg delayed release oral capsule (20 sources)Proton Pump InhibitorStart: 19-40-7598kzha 1 capsule by mouth once dailyStart: 07-01-2023 End: 58-13-4918qjdh 1 capsule by mouth once dailyOmeprazole 20 mg capsule,delayed release(DR/EC) Discontinued 0 .ROUTE .COMPLEX 90 January 06, 2024 12:36pm September 10, 2024 12:44pm take 1 capsule by mouth once dailyStart: 01-02-2023 End: 93-25-1497ntoipuanxs (PriLOSEC) [address] capsule 01/02/2023 ActiveStart: 02-09-2021 End: 47-93-0788makr 1 tablet by mouth once dailyOmeprazole 20 [...] MG/DOSE, 4 MG/3ML solution pen-injector (20 sources)Start: 34-15-0851hgnmvi 1 mg by subcutaneous injection every week Ozempic, 1 MG/DOSE, 4 MG/3ML solution pen-injector Administer 1mg subcutaneously once weekly 12/10/2022 Activepregabalin 300 mg oral capsule (20 sources)Start: 85-65-0539cjli 2 capsules by mouth once daily at bedtime Start: 07-10-2024 End: 58-04-9201tguc 1 capsule by mouth twice dailypregabalin (Lyrica) 300 MG capsule Indications: Neurogenic pain TAKE 1 CAPSULE BY MOUTH TWICE A FYT284 capsule 1 03/01/2025 ActiveStart: 01-15-2024 End: 65-47-6469ogye 1 capsule by mouth once dailyPregabalin 300 mg capsule Discontinued 300 MG PO Daily 90 90 July 03, 2024 1:03pm October 01, 2024 3:16pm Start: 82-74-4714Sbvxeceutb Active MG PO January 15, 2024 12:00amStart: 63-02-3769gpid 1 capsule by mouth twice dailypregabalin (Lyrica) 300 MG capsule Indications: Neurogenic pain TAKE 1 CAPSULE BY MOUTH TWICE A DAY60 capsule 3 01/07/2024 ActiveStart: 11-18-2023 End: 33-14-5994cufs 1 capsule by mouth twice dailyPregabalin (Lyrica) 150 mg capsule Discontinued 150 MG PO Twice daily November 18, 2023 12:00am January 15, 2024 3:40pmSemaglutide (6 sources)Start: 65-23-2344hnshhv 2 mg by subcutaneous injection every week Semaglutide (Ozempic) 2 mg/dose (8 mg/3 mL) pen injector Active 2 MG SUBCUT every week April 28, 2024 1:00am Complies with drug therapyStart: 69-98-1100avhfvf 2 mg by subcutaneous injection every weeksemaglutide (Ozempic) 1 mg/dose (4 mg/3 mL) pen injector (6 sources)Start: 10-14-1226talapwhubxe (Ozempic) 1 mg/dose (4 mg/3 mL) pen injector 2 mg 1 (one) time per week. 12/10/2022 ActiveStart: 85-36-2491byozgu 1 mg by subcutaneous injection every weeksemaglutide (Ozempic) 1 mg/dose (4 mg/3 mL) pen injector Administer 1mg subcutaneously once weekly 12/10/2022 Active Semaglutide (Ozempic) 2 mg/dose (8 mg/3 mL) pen injector (14 sources)Start: 80-96-4911dfmwah 2 mg by subcutaneous injection every week Semaglutide (Ozempic) 2 mg/dose (8 mg/3 mL) pen injector Active 2 MG SUBCUT every week April 28, 2024 1:00amStart: 69-44-0445upqfrs 2 mg by subcutaneous injection every weekSemaglutide (Ozempic) 2 mg/dose (8 mg/3 mL) pen injector Active 2 MG SUBCUT every week April 28, 2024 12:00amsertraline 50 mg oral tablet (17 sources)Serotonin Reuptake InhibitorStart: 74-96-1696rrcv 1 tablet by mouth once dailysertraline (Zoloft) 50 MG tablet Take 50 mg by mouth Daily 01/12/2025 ActiveStart: 12-15-2024 End: 05-41-8087ppap 1 tablet by mouth once dailySertraline 25 mg tablet Discontinued 25 MG PO Daily January 11, 2025 11:49am January 12, 2025 2:36pmsimvastatin 20 mg oral tablet (20 sources)HMG-CoA Reductase InhibitorStart: 04-30-2024 End: 81-77-7283nlby 2 tablets by mouth once dailyStart: 95-03-8883zmgh 1 tablet by mouth at bedtimesimvastatin (Zocor) 40 MG tablet Take 40 mg by mouth at bedtime 12/04/2022 ActiveStart: 02-09-2021 End: 05-98-3179upwt 1 tablet by mouth once dailySimvastatin 20 mg Tablet Discontinued 20 MG PO Daily February 09, 2021 12:00am April 30, 2024 11:27am traMADol hydrochloride 50 mg oral tablet (3 sources)Opioid AgonistStart: 43-10-9768palj 1 tablet by mouth twice daily as neededvarenicline 1 mg oral tablet (20 sources)Partial Cholinergic Nicotinic AgonistStart: 99-54-0386weor 1 tablet by mouth twice dailyVarenicline Tartrate 1 MG 1 tablet after eating with a full glass of water Orally Twice a day for 30 days To fill after completing starter pack Nov, ActiveStart: 32-64-6745Gbwmsfznhbf Tartrate (Starter) 0.5 MG X 11 & 1 MG X 42 as directed Orally as directed for 30 days Nov, Active Start: 30-35-7911ucon 1 mg by mouth twice dailyVarenicline Tartrate 1 MG as directed Orally Twice a day for 30 day(s) To start after completing starter pack Mar, ActiveStart: 41-21-7499Lnfxyidosnk Tartrate 0.5 MG 1 tablet with food and water daily days 1-3 then increase to twice daily on days 4-7 Orally Once a day for 7 day(s) Sep, Not-TakingStart: 58-63-1741ewqj 1 tablet by mouth twice dailyVarenicline Tartrate 1 MG 1 tablet after eating with a full glass of water Orally Twice a day for 30 days Sep, Not-Takingvitamin b12 2.5 mg oral tablet (20 sources)Vitamin V57Vzqgq: 35-41-3776ietzuwcelaanvb (Vitamin B-12) 2500 MCG tablet 11/14/2023 ActiveStart: 04-53-9670qogf 1 capsule by mouth once daily Start: 02-09-2021 End: 20-68-9390djwd 1 tablet by mouth once dailyCyanocobalamin (Vitamin B-12) (Vitamin B-12) 1,000 mcg Tablet Discontinued 1000 MCG PO Daily February 09, 2021 12:00am December 17, 2021 5:58amRA Vitamin B-12 Not-TakingRA Vitamin B-12 Active Completed/Discontinued Medications MedicationDrug Class(es)DatesSig (Normalized)Sig (Original)acetaminophen 325 mg oral tablet (20 sources)Start: 12-13-2021 End: 74-30-8709choo 1-3 tablets by mouth every six hours as needed for pain Acetaminophen 325 mg Tablet Discontinued 650 MG PO Every 6 hours as needed for Pain Scale 1 - 3 or fever December 13, 2021 12:00am December 17, 2021 5:59am Start: 12-13-2021 End: 62-29-0579kepp 650 mg by mouth every six hoursAcetaminophen Discontinued 650 MG PO Every 6 hours December 13, 2021 12:00am December 17, 2021 5:59am Admelog (9 sources)Admelog Not-TakingAdmelog Activeamiodarone hydrochloride 200 mg oral tablet (20 sources)AntiarrhythmicStart: 10-07-2023 End: 10-37-4744vfva 1 tablet by mouth twice dailyAmiodarone 200 mg tablet Discontinued 200 MG PO Twice daily November 04, 2023 12:00am April 14, 2024 10:39amamoxicillin 875 mg / clavulanate 125 mg oral tablet (20 sources)Penicillin-class AntibacterialStart: 12-15-2024 End: 74-91-0193aqlq 1 tablet by mouth twice dailyAmoxicillin-Pot Clavulanate 875-125 mg tablet Discontinued 1 TAB PO Twice daily December 15, 2024 12:00am January 05, 2025 1:40pmStart: 01-15-2024 End: 32-53-3865Nhvemqqwysg-Pot Clavulanate 875-125 mg tablet Discontinued TAB PO January 15, 2024 12:00am April 14, 2024 10:39am24 hr buPROPion hydrochloride 150 mg extended release oral tablet (20 sources)AminoketoneStart: 09-16-2024 End: 34-55-8822azsk 1 tablet by mouth once daily in the morningBupropion Hcl 150 mg tablet extended release 24 hr Discontinued 0 .ROUTE .COMPLEX September 160:37am January 05, 2025 1:40pm TAKE 1 TABLET BY MOUTH EVERY MORNING Start: 30-54-3509ejdm 1 tablet by mouth once daily in the morningBupropion Hcl 150 mg tablet extended release 24 hr Active 0 .ROUTE .COMPLEX September 16, 2024 10:37am TAKE 1 TABLET BY MOUTH EVERY MORNINGStart: 08-25-2024 End: 08-74-9213ahjh 1 tablet by mouth once daily in the morningBupropion Hcl 150 mg tablet extended release 24 hr Discontinued 150 MG PO Every morning August 25, 2024 12:00am September 16, 2024 10:38amStart: 81-66-6616jful 1 tablet by mouth every twenty-four hoursbuPROPion HCl ER (XL) 300 MG 1 tablet in the morning Orally Once a day for 90 day(s) Jul, ActivebuPROPion HCl ER (XL) 150 MG take 1 tablet by mouth every morning for 3 days for 3 DCed Activecefuroxime 500 mg oral tablet (20 sources)Cephalosporin AntibacterialStart: 04-30-2024 End: 53-43-3714sgxr 1 tablet by mouth twice dailyCefuroxime Axetil 500 mg tablet Discontinued 500 MG PO Twice daily 14 7 Keyla 2nd, 2025 1:00am August 20, 2024 10:10amStart: 12-13-2021 End: 97-07-2949ubtb 1 tablet by mouth twice dailyCefuroxime Axetil 500 mg tablet Discontinued 500 MG PO Twice daily 6 December 13, 2021 12:00am October 10, 2022 12:16pmStart: 08-19-0600bzwt 500 mg by mouth twice dailyCefuroxime Axetil Active 500 MG PO Twice daily 6 December 13, 2021 12:00amStart: 96-79-9539zxmu 500 mg by mouth twice dailyCefuroxime Axetil Active 500 MG PO Twice daily 6 December 13, 2021 12:00amcephalexin 500 mg oral capsule (13 sources)Cephalosporin AntibacterialStart: 07-10-2024 End: 19-77-5815cwjh 1 capsule by mouth every eight hoursCephalexin 500 mg capsule Discontinued 500 MG PO Every 8 hours July 10, 2024 12:00am July 22, 2024 11:18amcyclobenzaprine hydrochloride 10 mg oral tablet (20 sources)Muscle RelaxantStart: 05-15-2024 End: 66-62-0767jpjq 1-2 tablets by mouth at bedtimecyclobenzaprine (Flexeril) 10 MG tablet Indications: Cervical paraspinal muscle spasm , Lumbar paraspinal muscle spasm TAKE 1 TO 2 TABLETS BY MOUTH AT BEDTIME 60 tablet 3 05/15/2024 07/21/2024 DiscontinuedStart: 90-80-3818Hxapsnezzemfeqw Active MG PO January 15, 2024 12:00amStart: 01-07-2024 End: 14-70-4390Kmnorgukiacrevr 10 mg tablet Discontinued 10 MG PO As Directed as needed for muscle spasm 2023 12:00am April 30, 2024 11:27am dapagliflozin 10 mg oral tablet (4 sources)Sodium-Glucose Cotransporter 2 InhibitorStart: 54-41-6172vrdt 1 tablet by mouth every twenty-four hoursFarxiga 10 MG 1 tablet Orally Once a day for 30 day(s) Apr, Not-Takingdoxycycline hyclate 100 mg oral tablet (20 sources)Tetracycline-class DrugStart: 12-15-2024 End: 58-41-4948safy 1 tablet by mouth twice dailyDoxycycline Hyclate 100 mg tablet Discontinued 100 MG PO Twice daily December 15, 2024 12:00am January 05, 2025 1:40pmStart: 11-16-2024 End: 06-85-7071yqyc 1 tablet by mouth in the morningdoxycycline [...] 20 tablet 11/16/2024 11/26/2024 ActiveStart: 02-06-2022 End: 19-67-8805nvip 1 capsule by mouth once dailydoxycycline (Vibramycin) 100 MG capsule take 1 capsule by mouth once daily for 10 days 02/06/2022 01/07/2024 Discontinuedflash glucose sensor (FreeStyle Brent 14 Day Sensor) (20 sources)Start: 06-12-2023 End: 21-86-0052zjjsi glucose sensor (FreeStyle Brent 14 Day Sensor) Discontinued .Route June 12, 2023 12:00am July 22, 2023 6:32amStart: 06-12-2023 End: 21-31-7320gnrgk glucose sensor (FreeStyle Brent 14 Day Sensor) Discontinued .Route June 12, 2023 12:00am November 09, 2023 9:09pmStart: 06-12-2023 End: 32-82-6901fpkvg glucose sensor (FreeStyle Brent 14 Day Sensor) Discontinued .Route June 12, 2023 1:00amJu2023 10:09pmStart: 06-12-2023 End: 02-37-5022dexci glucose sensor (FreeStyle Brent 14 Day Sensor) Discontinued .Route June 12, 2023 1:00amMarc 2023 7:32amStart: 11-16-4257ozixk glucose sensor (FreeStyle Brent 14 Day Sensor) Active .Route June 12, 2023 1:00amStart: 97-02-6058pyrmd glucose sensor (FreeStyle Brent 14 Day Sensor) Active .Route June 12, 2023 12:00amStart: 60-57-7261ntylm glucose sensor (FreeStyle Brent 14 Day Sensor) Active .ROUTE June 12, 2023 12:00am Handicap placards as directed (13 sources)Start: 72-84-1878Xlnlzczk placards as directed as directed as directed as directed To 5 years after issue date Nov, Active3 ml insulin lispro 100 unt/ml pen injector (20 sources)Insulin AnalogStart: 42-30-2586Qxuzqsd Lispro Active 0 SUBCUT Before meals and at bedtime December 23, 2023 4:11pm subcutaneously before meals and at bedtime; 1:50 corrective scale (expect up to 20 units/day)Start: 06-12-2023 End: 11-62-1089Ljeqkyv Lispro Discontinued 0 SUBCUT Before meals and at bedtime June 12, 2023 9:05am December 23, 2023 4:14pm subcutaneously before meals and at bedtime; 1:50 corrective scale (expect up to 20units/day)Start: 69-14-1780Jhmmqra Lispro Active 0 SUBCUT Before meals and at bedtime June 12, 2023 9:05am subcutaneously before meals and at bedtime; 1:50 corrective scale (expect up to 20 units/day)Start: 32-17-9275Airrjla Lispro Active 0 SUBCUT Before meals and at bedtime June 12, 2023 8:05am subcutaneously before meals and at bedtime; 1:50 corrective scale (expect up to 20 units/day)Start: 10-10-2022 End: 16-13-2210acnsrd 1 dose by subcutaneous injection at bedtimeInsulin Lispro Discontinued sliding scale dose SUBCUT Before meals and at bedtime October 10, 2022 12:00am June 12, 2023 9:13amStart: 10-10-2022 End: 36-74-5117kernop 1 dose by subcutaneous injection at bedtimeInsulin Lispro Discontinued sliding scale dose SUBCUT Before meals and at bedtime October 09, 2022 11:00pm June 12, 2023 8:13amStart: 74-63-1863ehrnhb 1 dose by subcutaneous injection at bedtimeInsulin Lispro Active sliding scale dose SUBCUT Before meals and at bedtime October 09, 2022 11:00pmStart: 02-09-2021 End: 61-39-3208Ciwbjhv Lispro 100 unit/mL insulin pen Discontinued 0 SUBCUT Before meals and at bedtime June 12, 2023 9:05am December 23, 2023 4:14pm subcutaneously before meals and at bedtime; 1:50 corrective scale (expect up to 20 units/day)HumaLOG KwikPen 100 UNIT/ML 1:50 corrective scale Subcutaneous ac tid Not-TakingInsulin Lispro (Admelog Solostar U-100 Insulin) 100 unit/mL Insulin Pen (20 sources)Start: 02-09-2021 End: 18-80-5014Yuodbsm Lispro (Admelog Solostar U-100 Insulin) 100 unit/mL Insulin Pen Discontinued 1 sliding scale dose SUBCUT Use as Directed February 09, 2021 12:00am October 10, 2022 12:17pmStart: 02-09-2021 End: 38-83-8337Orlwnpd Lispro (Admelog Solostar U-100 Insulin) 100 unit/mL Insulin Pen Discontinued 1 sliding scale dose SUBCUT Use as Directed February 08, 2021 11:00pm October 10, 2022 11:17amInsulin Lispro 100 unit/mL Insulin Pen (14 sources)Start: 10-10-2022 End: 51-56-7490xvthmj 1 dose by subcutaneous injection at bedtimeInsulin Lispro 100 unit/mL Insulin Pen Discontinued sliding scale dose SUBCUT Before meals and at bedtime October 10, 2022 12:00am June 12, 2023 9:13amStart: 10-10-2022 End: 16-38-1394jndsfp 1 dose by subcutaneous injection at bedtimeInsulin Lispro 100 unit/mL Insulin Pen Discontinued sliding scale dose SUBCUT Before meals and at bedtime October 09, 2022 11:00pm June 12, 2023 8:13amL. acidophilus/Bifid. animalis (Daily Probiotic) (6 sources)Start: 08-25-2024 End: 29-41-0392ckyq 1 tablet by mouth once dailyL. acidophilus/Bifid. animalis (Daily Probiotic) Discontinued 1 TAB PO Daily August 25, 2024 12:00am December 15, 2024 1:58pmStart: 08-25-2024L. acidophilus/Bifid. animalis (Daily Probiotic) Active PO August 25, 2024 12:00amlidocaine 0.05 mg/mg topical ointment (20 sources)Antiarrhythmic, Amide Local AnestheticStart: 04-28-2024 End: 87-12-1761Uscemlkip 5 % ointment Discontinued 1 APPLIC TOPICAL Daily as needed for pain April 28, 2024 1:00am August 20, 2024 10:11amStart: 01-30-2024 End: 55-54-4558frpjojxgf (Xylocaine) 5 % ointment Indications: Ulcer of right foot, limited to breakdown of skin (CMS/HCC) Apply topically Daily Use as needed over the wound sites with dressing changes. 50 g 2 01/30/2024 07/21/2024 DiscontinuedStart: 01-03-2024 End: 63-80-6695ssdfxbsjq (Xylocaine) 1 % injection 6 mgStart: 01-03-2024 End: mg (0.6 mL), Injection, Once, On Sat01/03/24 at 1745, For 1 dose, Added to dexamethasone or ketorolac for therapeutic injection.lisinopril 5 mg oral tablet (20 sources)Angiotensin Converting Enzyme InhibitorStart: 09-09-2023 End: 43-69-3359enbf 1 tablet by mouth once dailyLisinopril 5 mg tablet Discontinued 0 .ROUTE .COMPLEX 90 September 09, 2023 9:36am November 05, 2023 12:26pm take 1 tablet by mouth once dailyStart: 06-12-2023 End: 71-21-6978xgoq 2.5 mg by mouth once dailyLisinopril 10 mg tablet Discontinued 2.5 MG PO Daily June 12, 2023 9:09am June 12, 2023 4:42pmStart: 06-12-2023 End: 01-75-5054jjyn 2.5 mg by mouth once dailyLisinopril Discontinued 2.5 MG PO Daily June 12, 2023 9:09am June 12, 2023 4:42pmStart: 06-12-2023 End: 98-34-9971bcuq 1 tablet by mouth once dailyLisinopril 2.5 mg tablet Discontinued 2.5 MG PO Daily June 12, 2023 1:00am June 19, 2023 6:17pmStart: 12-04-2022 End: 63-78-4359vtyb 1 tablet by mouth once dailyLisinopril 5 mg tablet Discontinued 5 MG PO Daily September 09, 2023 12:00am September 09, 2023 9:36amStart: 02-09-2021 End: 75-54-6506vitr 5 mg by mouth once dailyLisinopril 10 mg Tablet Discontinued 5 MG PO Daily February 09, 2021 12:00am June 12, 2023 9:13amStart: 02-09-2021 End: 70-00-9781xrvn 5 mg by mouth once dailyLisinopril Discontinued 5 MG PO Daily February 09, 2021 12:00am June 12, 2023 9:13amStart: 18-53-6621pbvu 10 mg by mouth once dailyLisinopril Active 10 MG PO Daily February 09, 2021 12:00amtake 1 tablet by mouth every twenty-four hoursLisinopril 40 MG 1 tablet Orally Once a day Activeloratadine 10 mg oral tablet (20 sources)Start: 02-09-2021 End: 88-67-8809rgqv 1 tablet by mouth once dailyLoratadine 10 mg Tablet Discontinued 10 MG PO Daily February 09, 2021 12:00am October 10, 2022 12:16pm Loratadine PRN ActiveLoratadine prn ActiveLoratadine Activemetoclopramide 10 mg oral tablet (20 sources)Dopamine-2 Receptor AntagonistStart: 06-12-2023 End: 37-30-7210lmyo 1 tablet by mouth once daily at bedtimeMetoclopramide Hcl 10 mg tablet Discontinued 10 MG PO Daily at bedtime June 12, 2023 1:00am [facility] 2023 6:17pmStart: 02-09-2021 End: 24-20-2918hlxc 1 tablet by mouth once dailyMetoclopramide Hcl 10 mg Tablet Discontinued 10 MG PO Daily February 09, 2021 12:00am October 10, 2022 12:15pm take 1 tablet by mouth at bedtimeMetoclopramide HCl 10 MG 1 tablet Orally at bedtime Nhapzx63 hr metoprolol succinate 50 mg extended release oral tablet (20 sources)beta-Adrenergic BlockerStart: 10-30-2023 End: 49-07-5440uweo 1 tablet by mouth three times dailyMetoprolol Succinate 50 mg Tablet Extended Release 24 Hr Discontinued 50 MG PO Three times daily November 04, 2023 12:00am April 14, 2024 10:40amStart: 09-14-2023 End: 03-73-0187knxb 1 tablet by mouth every twenty-four hours in the morning metoprolol succinate XL (Toprol-XL) 50 MG 24 hr tablet Take 50 mg by mouth in the morning and 50 mgin the evening. 09/14/2023 04/07/2024 DiscontinuedStart: 09-14-2023 End: 27-21-5325zayy 1 tablet by mouth once dailyMetoprolol Succinate 50 mg Tablet Extended Release 24 Hr Discontinued 50 MG PO Daily September 14, 2023 12:00am November 04, 2023 1:04pmMiscellaneous Medical Supply misc (20 sources)Start: 11-26-2023 End: 67-60-5420Ecwjjsvocaowm Medical Supply misc Discontinued 0 .Route 1 November 26, 2023 2:24pm April 28, 2024 12:40pm Hospital BedStart: 11-26-2023 End: 70-42-2594Dewehgeallymr Medical Supply misc Discontinued 0 .Route 1 November 26, 2023 1:24pm April 28, 2024 11:40am [facility] BedStart: 11-26-2023 End: 20-19-6161Emvmnvkmmdbzm Medical Supply misc Discontinued 0 .Route 1 November 26, 2023 2:22pm November 26, 2023 2:25pm As directedStart: 11-26-2023 End: 20-17-2675Qomirgfgxnefa Medical Supply misc Discontinued 0 .Route 1 November 26, 2023 1:22pm November 26, 2023 1:25pm As directedStart: 2023 End: 39-02-1613Vlhznvgqgzibv Medical Supply misc Discontinued 0 .Route 1 2023 2:20pm November 26, 2023 2:23pm As directedStart: 2023 End: 52-46-7584Ooosqgvhhqthv Medical Supply misc Discontinued 0 .Route 1 2023 1:20pm November 26, 2023 1:23pm As directedStart: 09-30-2023 End: 96-27-8054Sbfjjebbmvntw Medical Supply misc Discontinued 0 .Route 1 September 30, 2023 8:33am 2023 2:21pm As directedStart: 09-30-2023 End: 06-20-0460Ydrtekrythorz Medical Supply misc Discontinued 0 .Route 1 September 30, 2023 7:33am 2023 1:21pm As directedStart: 09-17-2023 End: 79-87-4777Hzmywfevkejac Medical Supply misc Discontinued 0 .Route 1 September 17, 2023 12:00am September 30, 2023 8:33am As directedStart: 09-17-2023 End: 56-33-3606Ndaotgdnhprqj Medical Supply misc Discontinued 0 .Route 1 September 16, 2023 11:00pm September 30, 2023 7:33am As directedMultivitamin Tablet (20 sources)Start: 02-09-2021 End: 57-08-3940hwse 1 tablet by mouth twice dailyMultivitamin Tablet Discontinued 1 TAB PO Twice daily February 09, 2021 12:00am June 12, 2023 9:13amStart: 02-09-2021 End: 63-23-8214mfcq 1 tablet by mouth twice dailyMultivitamin Tablet Discontinued 1 TAB PO Twice daily February 08, 2021 11:00pm June 12, 2023 8:13am24 hr nicotine 0.875 mg/hr transdermal system (17 sources)Cholinergic Nicotinic AgonistStart: 05-07-2024 End: 15-26-2709kvuje 1 dose transdermal route every twenty-four hoursNicotine 21 mg/24 hr patch 24 hour Discontinued 1 PATCH TRANSDERML Daily May 07, 2024 1:00am August 20, 2024 10:11ampen needle, diabetic (Sure-Fine Pen [place]) (20 sources)Start: 06-12-2023 End: 69-57-4002vzr needle, diabetic (Sure-Fine Pen [place]) Discontinued .Route June 12, 2023 1:00am January 05, 2025 1:32pmStart: 94-23-5689ncq needle, diabetic (Sure-Fine Pen [place]) Active .Route June 12, 2023 1:00amStart: 16-80-1564zha needle, diabetic (Sure-Fine Pen [place]) Active .Route June 12, 2023 12:00amStart: 54-09-3645rem needle, diabetic (Sure- Fine Pen [place]) Active .ROUTE June 12, 2023 12:00ampioglitazone 15 mg oral tablet (20 sources)Peroxisome Proliferator Receptor alpha Agonist, Peroxisome Proliferator Receptor gamma Agonist, ThiazolidinedioneStart: 02-09-2021 End: 21-00-1734jhyn 1 tablet by mouth once dailyPioglitazone 15 mg Tablet Discontinued 15 MG PO Daily February 09, 2021 12:00am April 28, 2024 1:57pm0.25 mg, 0.5 mg dose 1.5 ml semaglutide 1.34 mg/ml pen injector (20 sources)Start: 02-09-2021 End: 65-78-9960Wrdavsiqtgc (Ozempic) 0.25 mg or 0.5 mg(2 mg/1.5 mL) Pen Injector Discontinued 1 MG SUBCUT every week February 09, 2021 12:00am April 28, 2024 12:39pm Sundaystart: 13-98-9490Lueszjinzus (Ozempic) 0.25 mg or 0.5 mg(2 mg/1.5 mL) Pen Injector Active 0.5 MG SUBCUT every week February 09, 2021 12:00am SaturdayOzempic (0.25 or 0.5 MG/DOSE) 2 MG/1.5ML inject 0.5 milligrams subcutaneously every week for 84 ActiveSemaglutide (20 sources)Start: 04-28-2024 End: 37-28-6967pgrpdg 1 mg by subcutaneous injection every weekSemaglutide (Ozempic) 1 mg/dose (4 mg/3 mL) pen injector Discontinued 1 MG SUBCUT every week April 28, 2024 1:00am April 28, 2024 1:57pmStart: 04-28-2024 End: 03-04-6711lakfya 1 mg by subcutaneous injection every weekSemaglutide (Ozempic) 1 mg/dose (4 mg/3 mL) pen injector Discontinued 1 MG SUBCUT every week April 28, 2024 12:00am April 28, 2024 12:57pmtemazepam 30 mg oral capsule (20 sources)BenzodiazepineStart: 10-10-2022 End: 69-75-5640oxdg 1 capsule by mouth once dailyTemazepam 30 mg capsule Discontinued 30 MG PO Daily September 17, 2023 1:56pm November 08, 2023 4:43pm Start: 53-77-1719hazb 1 capsule by mouth every twenty-four hoursTemazepam 30 MG 1 capsule at bedtime as needed Orally Once a day for 30 days Jul, Active Start: 24-93-8462kcwb 1 capsule by mouth every twenty-four hoursTemazepam 30 MG 1 capsule at bedtime as needed Orally Once a day for 30 days Jun, Active Start: 32-69-3577znac 1 capsule by mouth every twenty-four hoursTemazepam 30 MG 1 capsule at bedtime as needed Orally Once a day for 30 days May, Active Start: 38-12-5347jgcx 1 capsule by mouth every twenty-four hoursTemazepam 15 MG 1 capsule at bedtime as needed Orally Once a day for 30 days Jun, Active Start: 54-60-4863sjtv 1 capsule by mouth every twenty-four hoursTemazepam 22.5 MG 1 capsule at bedtime as needed Orally Once a day for 30 days Apr, ActiveStart: 02-09-2021 End: 77-73-5820dbkw 1 capsule by mouth once daily at bedtimeTemazepam 30 mg Capsule Discontinued 30 MG PO Daily at bedtime February 09, 2021 12:00am December 17, 2021 6:00amtake 1 capsule by mouth every twenty-four hoursTemazepam 15 MG 1 capsule at bedtime as needed Orally Once a day ActiveVitamin B12 1000 MCG (4 sources)Start: 17-70-6720fbhr 1 tablet by mouth once dailyVitamin B12 1000 MCG 1 tablet Orally Once a day for 90 days Jun, Not-TakingStart: 24-48-9683aoza 1 tablet by mouth once dailyVitamin B12 1000 MCG 1 tablet Orally Once a day for 90 days Jun, Active Problems Active Problems Problem ClassificationProblemDateDocumented DateEpisodic/ChronicAbdominal pain (20 sources)Abdominal pain; Translations: [Unspecified abdominal pain]12-17-2021 EpisodicAcquired foot deformities (2 sources)Deformity of toe; Translations: [Acquired deformities of toe(s), unspecified, right foot]70-88-4803TvcjuoatWsxoiyxxbrirex/social admission (20 sources)Dietary counseling and surveillance; Translations: [Tobacco abuse counseling]Onset: 03-27-2021 Resolved: 87-94-0467EeipubznBsdpruhp reactions (10 sources)Allergy to honey bee venom; Translations: [Bee allergy status] 85-61-3971JplzfnlrWrkmfxx tract disease (20 sources)Biliary calculus; Translations: [Calculus of gallbladder without cholecystitis without obstruction]54-83-8772XyfzqnkrEunlicr dysrhythmias (20 sources)Atrial flutter; Translations: [Unspecified atrial flutter]Onset: 183715-35-5812YixkpsdRbgkpbv dysrhythmias (20 sources)Tachycardia; Translations: [Tachycardia, unspecified]09-12-2023 EpisodicChronic kidney disease (20 sources)Chronic kidney disease stage 2; Translations: [Chronic kidney disease, stage 2 (mild)]79-06-9214HodthsnAptfqsr ulcer of skin (20 sources)Non-pressure chronic ulcer of other part of right foot limited to breakdown of skin; Translations: [Ulcer of other part of foot]Onset: 11-16-2024 60-69-8798KsflevmEldh; stupor; and brain damage (9 sources)Daytime somnolence; Translations: [Somnolence]19-84-5217Fvxdvism Complications of surgical procedures or medical care (11 sources)Complication of ventilation ebvxzco25-90-7751HjdmigqsDrzsihkdfm heart failure; nonhypertensive (11 sources)Congestive heart failure; Translations: [Heart failure, unspecified] 91-96-9230OdsotekNdazmjik atherosclerosis and other heart disease (1 source)Coronary atherosclerosis and other heart diseaseOnset: 05-16-2017 Diabetes mellitus with complications (20 sources)Polyneuropathy due to type 2 diabetes mellitus; Translations: [Type 2 diabetes mellitus with diabetic polyneuropathy]Onset: 03-27-2021 Resolved: 77-35-0298ZnyesuqCrbazurz mellitus with complications (1 source)Diabetes mellitus with complicationsOnset: 88-56-1447Jupyisru mellitus without complication (20 sources)Type 2 diabetes mellitus; Translations: [Type 2 diabetes mellitus without complications]Onset: 649981-29-5788McemtfqVnlwhsjnv congenital anomalies (20 sources)Enlargement of tongue; Translations: [Macroglossia]Onset: 10-29-2023 41-26-0060ZxjvswkTlowgweb of white blood cells (20 sources)Granulocytosis; Translations: [Other elevated white blood cell count]Onset: 653365-54-8797RrnfcspJyedadmzm of lipid metabolism (20 sources)Hyperlipidemia; Translations: [Hyperlipidemia, unspecified]Onset: 03-27-2021 Resolved: 23-45-5905ZzafaupOdjhbwzkcr disorders (18 sources)Stricture of esophagus; Translations: [Esophageal obstruction] ChronicEsophageal disorders (20 sources)Achalasia of esophagus; Translations: [Achalasia of cardia] 67-98-9512RybwudyoYvdakozxcb disorders (1 source)Esophageal disordersOnset: 49-34-1552Aycgsryms hypertension (20 sources)Hypertensive disorder; Translations: [Essential (primary) hypertension]Onset: 03-27-2021 Resolved: 70-49-1371ElvfyuiGumueqbbt hypertension (1 source)Essential hypertensionOnset: 64-75-8607Wjxzcys and fatigue (20 sources)Fatigue; Translations: [Chronic fatigue, unspecified]Chronic Miscellaneous mental health disorders (20 sources)Primary insomnia; Translations: [Primary insomnia]ChronicMood disorders (20 sources)Major depressive disorder; Translations: [Major depressive disorder, single episode, unspecified]92-11-7718FqlekblXrxoiaohocc chest pain (20 sources)Chest pain; Translations: [Chest pain, unspecified]09-12-2023 EpisodicNutritional deficiencies (20 sources)Vitamin D deficiency; Translations: [Vitamin D deficiency, unspecified]ChronicOpen wounds of extremities (20 sources)Injury of foot; Translations: [Unspecified open wound, unspecified foot, initial encounter]58-30-8954YjscfnvvYcosu acquired deformities (2 sources)Unspecified acquired deformity of right lower leg; Translations: [Unspecified deformity of ankle and foot, acquired]57-88-6869XpslzgakRwqnc aftercare (20 sources)Long-term current use of insulin; Translations: [intermediate project manager (current) use of insulin]25-65-4902HaggadsbVtnxc aftercare (12 sources)intermediate project manager (current) use of insulin; Translations: [Long-term (current) use of insulin]Onset: 03-27-2021 Resolved: 00-99-6328DkjxxbwxCxrog aftercare (20 sources)Post-discharge follow-up; Translations: [Encounter for follow-up examination after completed treatment for conditions other than malignant neoplasm]81-54-5967TevemudwPxxnk aftercare (17 sources)Encounter for follow-up examination after completed treatment for conditions other than malignant neoplasm; Translations: [Other follow-up examination]81-00-4630LxlvwmweKnrrw circulatory disease (16 sources)Low blood pressure; Translations: [Hypotension, unspecified] 10-33-3010TycjsywhEamxj circulatory disease (5 sources)Hypotension, unspecified; Translations: [Hypotension, unspecified] 41-74-3400BujarqjwVztmx connective tissue disease (20 sources)Neurogenic pain; Translations: [Neuralgia and neuritis, unspecified] Onset: 537991-63-0187IsqplukvLpaus connective tissue disease (4 sources)Pain in left lower limb; Translations: [Pain in left leg]10-06-2024 EpisodicOther connective tissue disease (4 sources)Pain in right lower limb; Translations: [Pain in right leg]10-06-2024 EpisodicOther connective tissue disease (1 source)Weakness of hand; Translations: [Other symptoms and signs involving the musculoskeletal system]68-92-3948UcctonkhKbqiz female genital disorders (4 sources)Vaginal lesion; Translations: [Other specified noninflammatory disorders of vagina]54-83-3400DgloabygVepmc gastrointestinal disorders (20 sources)Dysphagia; Translations: [Dysphagia, unspecified]78-52-7438Wbecqtgb Other gastrointestinal disorders (15 sources)Stricture of esophagus; Translations: [Personal history of other diseases of the digestive system]EpisodicOther gastrointestinal disorders (16 sources)Incontinence of feces; Translations: [Full incontinence of feces] 88-84-8797BrgndflpYukvg gastrointestinal disorders (5 sources)Full incontinence of feces; Translations: [Full incontinence of feces]13-97-9918WmwffnheOajeo hematologic conditions (20 sources)Secondary polycythemia; 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] 16-70-6012NixlxfwpJbmrl hematologic conditions (4 sources)Lesion of spleen; Translations: [Other diseases of spleen]01-12-2025 EpisodicOther injuries and conditions due to external causes (9 sources)Unspecified injury of left foot, initial encounter; Translations: [Injury of foot, left]EpisodicOther nervous system disorders (20 sources)Peripheral nerve disease ; Translations: [Polyneuropathy, unspecified]50-59-4311ObikwmrGhwir nervous system disorders (20 sources)Polyneuropathy, unspecified; Translations: [Unspecified hereditary and idiopathic peripheral neuropathy]Onset: 03-27-2021 Resolved: 00-72-6105VrlhzagJixuy nervous system disorders (20 sources)Walking disability; Translations: [Difficulty in walking, not elsewhere classified]51-12-2048GawpybvChqyv nervous system disorders (12 sources)Difficulty in walking, not elsewhere classified; Translations: [Difficulty in walking]21-70-8216RegegzdVhzlj nervous system disorders (20 sources)Bilateral carpal tunnel syndrome; Translations: [Carpal tunnel syndrome, bilateral upper limbs]Onset: 196723-19-9163KzzdtrsZgnti nervous system disorders (20 sources)Polyneuropathy; Translations: [Polyneuropathy, unspecified]Onset: 121328-51-2426VtxchqvLtdse nervous system disorders (20 sources)Ulnar nerve entrapment at wrist; Translations: [Lesion of ulnar nerve, unspecified upper limb]Onset: 041591-47-9471JicrelbDtfsw nervous system disorders (5 sources)Numbness; Translations: [Anesthesia of skin]42-23-7541KfgnaojxJlxrc nervous system disorders (1 source)Paresthesia; Translations: [Paresthesia of skin]34-60-2793Gbductoj Other nutritional; endocrine; and metabolic disorders (20 sources)Obese class I; Translations: [Body mass index (BMI) 33.0-33.9, adult]ChronicOther nutritional; endocrine; and metabolic disorders (20 sources)Body mass index 30+ - obesity; Translations: [Body mass index (BMI) 32.0-32.9, adult]Onset: 808735-16-2270MjfudkfZrinm nutritional; endocrine; and metabolic disorders (3 sources)Body mass index (BMI) 30.0-30.9, adultOnset: 03-27-2021 Resolved: 29-43-6684VspatwpVahky nutritional; endocrine; and metabolic disorders (20 sources)Obese class II; Translations: [Body mass index (BMI) 35.0-35.9, adult]ChronicOther nutritional; endocrine; and metabolic disorders (1 source)Body mass index (BMI) 35.0-35.9, adultChronicOther nutritional; endocrine; and metabolic disorders (20 sources)Hypomagnesemia; Translations: [Hypomagnesemia]42-32-4099EjicbhyJqzax nutritional; endocrine; and metabolic disorders (20 sources)Hypomagnesemia; Translations: [Disorders of magnesium metabolism] Onset: 800607-22-6883FgwgjioPhknl nutritional; endocrine; and metabolic disorders (16 sources)Body mass index (BMI) 32.0-32.9, adult; Translations: [Body Mass Index 32.0-32.9, adult]Onset: 635866-42-6871MsihbklHyvyl nutritional; endocrine; and metabolic disorders (2 sources)Obesity, unspecified; Translations: [Obesity, unspecified]Onset: 94-07-5732RzubbvzIngul nutritional; endocrine; and metabolic disorders (4 sources)Obesity; Translations: [Class 1 obesity with body mass index (BMI) of 30.0 to 30.9 in adult]36-73-0421JzhlfxwDoajc nutritional; endocrine; and metabolic disorders (20 sources)Body mass index (BMI) 28.0-28.9, adult; Translations: [Body Mass Index 28.0-28.9, adult]Onset: 01-09-2022 Resolved: 32-51-9239IuuguknqIagzd nutritional; endocrine; and metabolic disorders (1 source)Body mass index (BMI) 29.0-29.9, adultEpisodicOther nutritional; endocrine; and metabolic disorders (20 sources)Overweight in adulthood with body mass index of 25 or more but less than 30; Translations: [Body mass index (BMI) 28.0-28.9, adult]Onset: 10-07-2023 Resolved: 000366-65-9873WitntyrrJtfwt screening for suspected conditions (not mental disorders or infectious disease) (1 source)Ultrasound scan abnormal; Translations: [Abnormal findings on diagnostic imaging of other specifiedbody structures]37-90-2185EqbxlcmKwtgl screening for suspected conditions (not mental disorders or infectious disease) (20 sources)Thyroid function tests abnormal; Translations: [Other specified abnormal findings of blood chemistry]Onset: 912785-98-3988PcdlbmsmRclyq skin disorders (10 sources)Lesion of skin of face; Translations: [Disorder of the skin and subcutaneous tissue, unspecified]08-80-6545VtdkeczaGdqlt skin disorders (3 sources)Disorder of the skin and subcutaneous tissue, unspecified; Translations: [Unspecified disorder of skin and subcutaneous tissue]08-25-2024 EpisodicPeri-; endo-; and myocarditis; cardiomyopathy (except that caused by tuberculosis or sexually transmitted disease) (20 sources)Cardiomyopathy; Translations: [Cardiomyopathy, unspecified]Onset: 506687-15-7437PskfkkpVzklwklong and visceral atherosclerosis (20 sources)Peripheral vascular disease, unspecified; Translations: [Peripheral vascular disease]Onset: 01-25-2017 Resolved: 61-88-9463FxoptwcVzqjcqfq codes; unclassified (20 sources)Sleep apnea; Translations: [Sleep apnea, unspecified]ChronicResidual codes; unclassified (1 source)Sleep apnea, unspecifiedOnset: 07-03-2021 Resolved: 49-14-2711IilqrwtKienwdbi codes; unclassified (2 sources)Obstructive sleep apnea (adult) (pediatric); Translations: [Obstructive sleep apnea (adult)(pediatric)]Onset: hronic Residual codes; unclassified (20 sources)Insomnia; Translations: [Insomnia, unspecified]EpisodicResidual codes; unclassified (1 source)Asymptomatic menopausal stateEpisodicResidual codes; unclassified (16 sources)Sleep disorder; Translations: [Sleep disorder, unspecified] 49-53-4029ApevznqwZntemrpq codes; unclassified (5 sources)Sleep disorder, unspecified; Translations: [Sleep disturbance, unspecified]23-51-9134IxyzgxepKfeezlqf codes; unclassified (2 sources)At increased risk of emergency hospital admission; Translations: [Other specified personal risk factors, not elsewhere classified]11-23-2024 EpisodicResidual codes; unclassified (8 sources)Postmenopausal state; Translations: [Asymptomatic menopausal state] 75-88-8160CfmhnsrsVwgn and subcutaneous tissue infections (6 sources)Cellulitis of right foot; Translations: [Cellulitis of right lower limb]60-97-8822CioynoscHxpidaymxwj; intervertebral disc disorders; other back problems (15 sources)Lumbar spondylosis; Translations: [Spondylosis without myelopathy or radiculopathy, lumbar region]34-92-4657EwtqybaTgsrxhuub-related disorders (20 sources)Smoker; Translations: [Nicotine dependence, unspecified, uncomplicated]Onset: 27-42-0583EhdqtxxJoyvkdcwiso injury; contusion (8 sources)Blister of foot; Translations: [Blister (nonthermal), right foot, subsequent encounter]00-00-0713BgmccjfsJovwozq disorders (20 sources)Hypothyroidism; Translations: [Hypothyroidism, unspecified]Onset: 093853-50-3515PfquttgEftbfgsya cerebral ischemia (20 sources)Transient cerebral ischemia; Translations: [Transient cerebral ischemic attack, unspecified]Onset: 235801-16-1814CiklecfSypeqthudgnr (3 sources)Dermatochalasis of left upper eyelid / H02.834(ICD-10)Onset: 14-19-6013Aopovhnqiyux (1 source)Dermatochalasis of right upper eyelid / H02.831(ICD-10)Onset: 97-76-6990Gbwxwqhqhwad (1 source)Unspecified ptosis of bilateral eyelids / H02.403(ICD-10)Onset: 66-90-3772Tqgjszwppoxc (1 source)Nicotine dependence, unspecified, uncomplicated / F17.200(ICD-10) Onset: 50-92-7423Mezueaqrxjaa (1 source)group home (current) use of aspirin / Z79.82(ICD-10)Onset: 05-16-2017 Unclassified (1 source)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 / Z79.84(ICD-10) Onset: 21-64-9541Togmjidkknvk (2 sources)Bilateral leg jcxlhyhk64-97-2005Awqsdck tract infections (20 sources)Emphysematous cystitis; Translations: [Other cystitis without hematuria]55-10-4570JsmgeihvWuaod infection (1 source)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; 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]Onset: 37-56-1766Cfbbvqlk Past or Other Problems Problem ClassificationProblemDateDocumented DateEpisodic/ChronicConditions associated with dizziness or vertigo (20 sources)Dizziness; Translations: [Dizziness and giddiness]Onset: 04-27-2024 83-85-2734SbqkylbgP Codes: Adverse effects of medical drugs (20 sources)Alpha-tocopheryl adverse reaction; Translations: [Adverse effect of vitamins, initial encounter]Onset: 928500-37-3305TsvmwfekYpsbanychlqnu symptoms and ill-defined conditions (2 sources)Proteinuria, unspecifiedOnset: 03-27-2021 Resolved: 88-33-9987OvvooibnAeswgaggszepl and screening for infectious disease (20 sources)Anti-nuclear factor positive; Translations: [Other specified abnormal immunological findings in serum]Onset: 887297-86-2555Adhxuhqv Malaise and fatigue (20 sources)Asthenia; Translations: [Weakness]Onset: 620205-89-9369 EpisodicNutritional deficiencies (20 sources)Deficiency of other specified B group vitamins; Translations: [Cobalamin deficiency]Onset: 03-27-2021 Resolved: 21-84-2607LwvxklqgEsdka aftercare (7 sources)Taking high risk medication; Translations: [Other long-term (current) drug therapy]Onset: 11-13-2023 Resolved: 037169-91-6080HtlotrvyMhtxn connective tissue disease (1 source)Pain in right legOnset: 04-03-2021 Resolved: 15-88-3763RieqtifbJxdbn connective tissue disease (1 source)Pain in left legOnset: 04-03-2021 Resolved: 46-47-7268UbzpkjctPtoik connective tissue disease (20 sources)Spasm of cervical paraspinous muscle; Translations: [Other muscle spasm]Onset: 963378-39-5160JofycbgcAdvde connective tissue disease (20 sources)Muscle atrophy; Translations: [Muscle wasting and atrophy, not elsewhere classified, multiple sites]Onset: 152124-87-8934PquchrcqYalxl connective tissue disease (20 sources)Pain in bilateral legs; Translations: [Pain in right leg]Onset: 638565-61-0950NkkhchlnFcwjc connective tissue disease (20 sources)Other symptoms and signs involving the musculoskeletal system; Translations: [Other musculoskeletalsymptoms referable to limbs]Onset: 808974-19-0314FqxvjaneUzhhe gastrointestinal disorders (5 sources)Dysphagia, unspecified; Translations: [Dysphagia, unspecified]Onset: 47-70-9857AdiamttyNucez hematologic conditions (15 sources)Secondary polycythemia; 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, secondary] Onset: 292840-80-3444XarmuejiJgodd nervous system disorders (20 sources)Impaired cognition; Translations: [Other symptoms and signs involving cognitive functions and awareness]Onset: 320751-15-6242Fbyqwfgs Other skin disorders (1 source)Corns and callositiesOnset: 07-10-2021 Resolved: 92-81-8286HcrzoidoJcmlewod codes; unclassified (20 sources)Obstructive sleep apnea syndrome; Translations: [Obstructive sleep apnea (adult) (pediatric)]Onset: 10-29-2023 Resolved: 192197-66-4094MrvrwidRmtgymag codes; unclassified (1 source)Insomnia, unspecifiedOnset: 05-08-2021 Resolved: 87-58-9201SbbyvlgnCmauusaldgn; intervertebral disc disorders; other back problems (20 sources)Spasm of muscle of lower back; Translations: [Muscle spasm of back] Onset: 618891-50-0691SzccxmzsDoahbofagwui (1 source)Dermatochalasis of left upper eyelid; Translations: [Dermatochalasis of left upper eyelid]Onset: 79-72-7933Dlhznuihalhv (6 sources)Onset: 10-07-2023 Resolved: 08-32-935401205853-35-7493 Results Test NameValueInterpretationReference RangeFacilityCBC panel Auto (Bld)on 56-63-1063Krznneamxbt distribution width (RBC) [Ratio]13.5 %Iixhij17.5-15.0 [facility] on above:Order Comment: Specimen Type: BLOOD SPECIMEN Ordering Facility: [facility] Address: [address] [place], [place] [address]Performed By: #### 03918-9 #### [facility] CLIA [id number] [address] [place] [address] 98104Fjircjuihi (Bld) [Volume fraction]51.2 %High36.0-46.0[facility] on above:Order Comment: Specimen Type: BLOOD SPECIMEN Ordering Facility: [facility] Address: [address] [place], [place] [address]Performed By: #### 90075-2 #### [facility] CLIA [id number] [address] [place] [address] 18823Latfreotbs (Bld) [Mass/Vol]16.8 g/eVHyrl76.5-15.5C[facility] on above:Order Comment: Specimen Type: BLOOD SPECIMEN Ordering Facility[facility] Address: [address] [place], [place] [address]Performed By: #### 27671-3 #### [facility] CLIA [id number] [address] [place] [address] 40133KPE (RBC) [Entitic mass]31.3 lsLpeswj35.0-34.0[facility] on above:Order Comment: Specimen Type: BLOOD SPECIMEN Ordering Facility: [facility] Address: [address] [place], [place] [address]Performed By: #### 37739-0 #### [facility] CLIA [id number] [address] [place], [place] [address]QSFE (RBC) [Mass/Vol]32.8 g/gKCaxbfa87.5-36.0[facility] on above:Order Comment: Specimen Type: BLOOD SPECIMEN Ordering Facility: [facility] Address: [address] [place], [place] [address]Performed By: #### 69220-4 #### [facility] CLIA [id number] [address] [place] [address] 15322LNE (RBC) [Entitic vol]95.3 vYNhvyef55.0-100.0[facility] on above:Order Comment: Specimen Type: BLOOD SPECIMEN Ordering Facility: [facility] Address: [address] [place], [place] [address]Performed By: #### 80246-6 #### [facility] CLIA [id number] [address] [place] [address] 92049Aizqvtpye RBC (Bld) [#/Vol]10*3/uLNormal<0.01[facility] on above:Order Comment: Specimen Type: BLOOD SPECIMEN Ordering Facility: [facility] Address: [address] [place], [place] [address]Performed By: #### 59362-1 #### [facility] CLIA [id number] [address] [place] [address] 93221Twylumqv mean volume (Bld) [Entitic vol]11.7 fLNormal9.0-12.7 [facility] on above:Order Comment: Specimen Type: BLOOD SPECIMEN Ordering Facility: [facility] Address: [address] [place], [place] [address]Performed By: #### 50268-2 #### [facility] CLIA [id number] [address] [place] [address] 67946Tttfsessx (Bld) [#/Vol]156 10*3/gCOffrbe905-284ShbuprzlvMcCullough-Hyde [facility] on above:Order Comment: Specimen Type: BLOOD SPECIMEN Ordering Facility: [facility] Address: [address] [place], [place] [address]Performed By: #### 63831-9 #### [facility] CLIA [id number] [address] [place], [place] [address]DTM (Bld) [#/Vol]5.37 10*6/uLHigh3.90-5.20[facility] on above:Order Comment: Specimen Type: BLOOD SPECIMEN Ordering Facility: [facility] Address: [address] [place], [place] [address]Performed By: #### 11769-5 #### [facility] CLIA [id number] [address] [place] [address] 23163NSC (Bld) [#/Vol]9.12 10*3/uLNormal3.70-11.00[facility] on above:Order Comment: Specimen Type: BLOOD SPECIMEN Ordering Facility: [facility] Address: [address] [place], [place] [address]Performed By: #### 48004-1 #### [facility] CLIA [id number] [address] [place] [address] 86974Eazcfamhzdfmc metabolic 2000 panelon 91-19-9044Jyerclc [Mass/Vol]4.2 g/dLNormal3.9-4.9C[facility] on above:Order Comment: Specimen Type: BLOOD SPECIMEN Ordering Facility: [facility] Address: [address] [place], [place] [address]Performed By: #### 57548-8 #### [facility] CLIA [id number] [address] [place] [address] 30951EZZ [Catalytic activity/Vol]114 U/FLmkvrh47-653ZypfgghsjMcCullough-Hyde Memorial Hospital on above:Order Comment: Specimen Type: BLOOD SPECIMEN Ordering Facility: [facility] Address: [address] [place], [place] [address]Performed By: #### 83387-7 #### [facility] CLIA [id number] [address] [place], [place] [address]ZFT [Catalytic activity/Vol]21 U/LNormal7-38[facility] on above:Order Comment: Specimen Type: BLOOD SPECIMEN Ordering Facility: [facility] Address: [address] [place], [place] [address]Performed By: #### 64684-8 #### [facility] CLIA [id number] [address] [place], [place] [address]Locjp gap [Moles/Vol]9 mmol/LNormal8-15[facility] on above:Order Comment: Specimen Type: BLOOD SPECIMEN Ordering Facility: [facility] Address: [address] [place], [place] [address]Performed By: #### 48706-0 #### [facility] CLIA [id number] [address] [place] [address] 69311BFP [Catalytic activity/Vol]28 U/IRtnhgp69-51SbqfzzxdaMcCullough-Hyde Memorial Hospital on above:Order Comment: Specimen Type: BLOOD SPECIMEN Ordering Facility: [facility] Address: [address] [place], [place] [address]Performed By: #### 66174-2 #### [facility] CLIA [id number] [address] [place] [address] 40622Dyqoippoz [Mass/Vol]0.4 mg/dLNormal0.2-1.3CThe [facility] on above:Order Comment: Specimen Type: BLOOD SPECIMEN Ordering Facility: [facility] Address: [address] [place], [place] [address]Performed By: #### 70799-3 #### [facility] CLIA [id number] [address] [place], [place] [address]Xrhunju [Mass/Vol]10.4 mg/dLHigh8.5-10.2CThe [facility] on above:Order Comment: Specimen Type: BLOOD SPECIMEN Ordering [facility] Address: [address] [place], [place] [address]Performed By: #### 10361-0 #### [facility] CLIA [id number] [address] [place], [place] [address]Ddbxwygm [Moles/Vol]99 mmol/DBadvce32-111CbxhflxtzBucyrus Community HospitalCommckenzie memorial hospital on above:Order Comment: Specimen Type: BLOOD SPECIMEN Ordering Facility[facility] Address: [address] [place], [place] [address]Performed By: #### 81172-0 #### [facility] CLIA [id number] [address] [place], [place] [address]DP0 [Moles/Vol]31 mmol/PQkge77-33HfkedbqssBucyrus Community Hospital Comment on above:Order Comment: Specimen Type: BLOOD SPECIMEN Ordering Facility[facility] Address: [address] [place], [place] [address]Performed By: #### 46576-3 #### [facility] CLIA [id number] [address] [place] [address] 00575Bjycqtwukq [Mass/Vol]0.89 mg/dLNormal0.58-0.96[facility] HospitalCommckenzie memorial hospital on above:Order Comment: Specimen Type: BLOOD SPECIMEN Ordering Facility[facility] Address: [address] [place], [place] [address]Performed By: #### 91091-9 #### [facility] CLIA [id number] [address] [place] [address] 95517dEJVfp SerPlBld CKD-EPI 217705 mL/min/1.73m???Normal>=60 [facility] HospitalCommck[facility] hospital on above:Order Comment: Specimen Type: BLOOD SPECIMEN Ordering Facility: [facility] Address: [address] [place], [place] [address]Result Comment: Estimated Glomerular Filtration Rate (eGFR) is [...] not accurately reflect actual GFR.Performed By: #### 81484-8 #### [facility] CLIA [id number] [address] [place] [address] 04992Mayylus [Mass/Vol]197 mg/qWBpja12-56QqeamdlzpBucyrus Community Hospital Comment on above:Order Comment: Specimen Type: BLOOD SPECIMEN Ordering Facility[facility] Address: [address] [place], [place] [address]Mqyrhk Comment: The [place] [employer] (ADA) provides guidance for cutoff [...] Standards of Medical Care in Diabetes 2016, [place] [employer]. Diabetes Care. 2016.39(Suppl 1).Performed By: #### 31373-4 #### [facility] CLIA [id number] [address] [place] [address] 81328Iohsrgwvy [Moles/Vol]5.0 mmol/LNormal3.7-5.1CThe [facility] on above:Order Comment: Specimen Type: BLOOD SPECIMEN Ordering Facility[facility] Address: [address] [place], [place] [address]Ijyutdssp By: #### 17447-5 #### [facility] CLIA [id number] [address] [place] [address] 79874Ylwfjzn [Mass/Vol]7.5 g/dLNormal6.3-8.0[facility] on above:Order Comment: Specimen Type: BLOOD SPECIMEN Ordering Facility: [facility] Address: [address] [place], [place] [address]Qgtpawbdp By: #### 72773-6 #### [facility] CLIA [id number] [address] [place], [place] [address]Dyvzlv [Moles/Vol]139 mmol/WEvsqgt063-372NeqzlrgymMcCullough-Hyde Memorial Hospital on above:Order Comment: Specimen Type: BLOOD SPECIMEN Ordering Facility: [facility] Address: [address] [place], [place] [address]Performed By: #### 09352-9 #### [facility] CLIA [id number] [address] [place], [place] [address]Gasq nitrogen [Mass/Vol]8 mg/dLNormal7-21[facility] on above:Order Comment: Specimen Type: BLOOD SPECIMEN Ordering Facility: [facility] Address: [address] [place], [place] [address]Performed By: #### 95646-9 #### [facility] CLIA [id number] [address] [place], [place] [address]RYWK AND SCREEN,30 DAYon 02-15-0671ENBKLwwphjJadkgcehkThe [facility] Hospital on above:Order Comment: Specimen Type: BLOOD SPECIMEN Ordering Facility[facility] Address: [address] [place], [place] [address]Performed By: #### [id number] #### [facility] CLIA [id number] [address] [place] [address] [place] STATES OF AMERICARh Nom (Bld)PositiveNormalCThe [facility] Hospital on above:Order Comment: Specimen Type: BLOOD SPECIMEN Ordering Facility[facility] Address: [address] [place], [place] [address]Performed By: #### [id number] #### [facility] CLIA [id number] [address] [place] [address] STATES OF AMERICACNPNon [id number] (NCCAP) TAYE GAY ([id number]) 1955 F Date Time Provider Department 02/18/25 ZACK CORDOBA During your visit today, we recorded the following information about you: Marylin KennedySarah 02/18/2025 10:34 AM Signed ----- Message from Shantel Sanabria sent at 02/18/2025 10:06 AM EDT ----- Can someone please call Dr. Linwood Irwin office to get this colposcopy with biopsies scheduled? Thanks! Shantel ----- Message ----- From: Farida Sinclair APRN.PATTERN REPAIR PERSON Sent: 02/17/2025 12:43 PM EDT To: Shantel Gutierrez [facility] Thanks, so the plot thickens. The pap [...] results. ----- Message ----- From: Farida Sinclair APRN.PATTERN REPAIR PERSON Sent: 02/11/2025 3:41 PM EDT To: Zack Cordoba MD; Shantel Gutierrez # Hi all, path review back, patient just has benign warts. However I don't see a pap result from that visit, am I missing it? 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 She might need something with her cervix. Can we please get her pap? If everything is normal she doesn't need us unless Dr. Irwin needs surgical help. Thanks. Farida Coulter Pss, Sarah 02/18/2025 10:55 AM Signed I called Dr Irwin office [phone] and spoke with Summer. 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 I gave Summer our [place] office phone number to call back with any updates and also provided her with Dr Cordoba [place] [phone] Irwin to call [...] applicatorful vaginally once (more content not included)...Normal [facility] SURG PATH SLIDE REVIEWon [id number] DISCLAIMERNormalCThe [facility] Hospital on above:Order Comment: Specimen Type: FORMALIN-FIXED PARAFFIN-EMBEDDED TISSUE SPECIMEN Ordering Facility: [facility] Address: , ,Result Comment: Laboratory Developed Test (LDT) Disclaimer: Performance characteristics of immunohistochemical, immunofluorescent, and chromogenic in-situ hybridization tests have been determined by the performing laboratory within the [facility] Department of Pathology and Laboratory Medicine ([facility], [facility], [facility], [facility], [facility], [facility], or [facility]) in a manner consistent with CLIA requirements. One or more of these tests may not have been cleared or approved by the FDA. The [facility] Department of Pathology and Laboratory Medicineis regulated under CLIA as qualified to perform high-complexity testing. These tests are used for clinical purposes. These should not be regarded as investigational or for research. Positive and negative controls stain appropriately.Performed By: #### [id number] #### [facility] CLIA [id number] [address] [place] [address] [facility] HOSPITALCASE REPORTNoSelect [facility] on above:Order Comment: Specimen Type: FORMALIN-FIXED PARAFFIN- EMBEDDED TISSUE SPECIMEN Ordering Facility: [facility] Address: , ,Result Comment: Surgical Pathology Report Case: [id number] Authorizing Provider: Zack Cordoba MD Collected: 02/10/2025 10:21 PM Ordering Location: [facility] Received: 02/10/2025 10:19 PM [facility] Pathologist: Stacy Hassan MD Specimen: Slide(s), 2 SLIDES ([id number])Performed By: #### [id number] #### [facility] CLIA [id number] [address] [place], [place] [address]FINAL DIAGNOSISNoSelect Medical Specialty [facility] on above:Order Comment: Specimen Type: FORMALIN-FIXED PARAFFIN-EMBEDDED TISSUE SPECIMEN Ordering Facility: [facility] Outside Review Address: , ,Result Comment: Review of outside slides Vulva, biopsy: Consistent with condyloma. at 1516 EDTPerformed By: #### [id number] #### [facility] CLIA [id number] [address] [place], [place] [address]FINAL PERFORMING LABNoSelect Medical Specialty Hospital [facility]on on above:Order Comment: Specimen Type: FORMALIN-FIXED PARAFFIN-EMBEDDED TISSUE SPECIMEN Ordering Facility: [facility] Review Address: , ,Result Comment: Diagnostic interpretation performed at: [facility], [address] [place] [address] CLIA# [id number] Wrapper Sorter: Rudi Turner MDPerformed By: #### [id number] #### [facility] CLIA [id number] [address] [place], [place] [address] [place] STATES OF AMERICAMISCELLANEOUS SMEAR CYTOLOGYon 87-78-0178Wdbdycli report Cyto stain Doc (Unsp spec)CommentNOUT Healthcare Comment on above:VULVA INCONCLUSIVE. ATYPICAL SQUAMOUS CELLS OF UNDETERMINED SIGNIFICANCE (ASC-US) (VULVAR). FUNGAL ORGANISMS ARE PRESENT. Pathologist nameCommentNOMS HealthcareComment on above:Eldon Madera MD, PathologistPathology report comments [Interpretation] NarrativeCommentNOMS HealthcareComment on above:Suggest follow up as clinically appropriate.Pathology report gross observation NarrativeCommentNOMS HealthcareComment on above:20ML, LT WHITE, CLOUDY /LCS 02/05/2025 0740 Local Pathology report site of origin NarrativeCommentNOMS HealthcareComment on above: VULVAPerformed by:CommentNOUT HealthcareComment on above:Carmelita Reese, Web Weaver (ASCP)Performed at: 01 - [address] [id number] Registered Nurse Cardiac: Savi Cai MD, Phone: [phone] Specimen Comment: No. of containers..01 ThinPrep VialLABCORPCameron Regional Medical CenterNo Panel Informationon 67-27-5012Dmucvudzi ICD code [Identifier]CommentNOCitizens Memorial HealthcareComment on above:N89.8 Z01.419 Z12.4 R87.69CNPNon 18-35-9320JQQTUlbftvewd ([facility]) TAYE GAY ([id number]) 1955 F Date Time Provider Department 02/04/25 ZACK CORDOBA [facility] During your visit today, we recorded the following information about you: Reva Finney 02/04/2025 3:42 PM Signed Patient has referral to see Dr. Cordoba diagnosis of recurrent lesion referring provider Linwood Irwin first available is March 09 Please review and advise Thank you Reva Finney, RAUL Matt [facility] CenterShantel 02/05/2025 8:46 AM Signed The path report [...] lesion [N90.89] Order(s):OUTSIDE SURG PATH SLIDE REVIEW [LUF6091] Order #: [id number] Prescriptions as of 02/09/2025 - polyethylene glycol [...] [F17.200] Encounter Status:Closed by FARIDA SINCLAIR on 02/09/25[facility] lung screeningon 71-44-8652FF lung screeningSUBURBAN [facility] Main [place] [address] [place] [address] CT Scan Report Signed Patient: Taye Gay MR#: [id number] 19 : 1955 Acct:[id number] Age/Sex: 69 / F ADM Date: 02/02/25 Loc: CT Room: Type: [facility] Attending Dr: CHERYL Palacios APRN Copies to: [...] Jr., DKenishaOKenisha 02/02/2025 12:36 PM Dictation Location: [facility]--27 Transcribed By: [facility] 02/02/25 1236 Dictated By: Edgar Segovia Jr DO 02/02/25 1232 Signed By: 02/02/25 1236[facility] Physician OanntMrV6a HPLC (Bld) [Mass fraction] Ordered By: Angelique Russell on 92-48-9841NnQ1s (Bld) [Mass fraction]8.6 %[facility] CenterNo Panel InformationOrdered By: Angelique Russell on 50-79-6256Jzgggal Kblscly711HjuovpztiPremier Health Upper Valley Medical CenterMR LUMBAR SPINE WO CONTRASTon 73-29-1729BX LUMBAR SPINE WO CONTRASTEXAM: MR LUMBAR SPINE [...] culture with sensitivityOrdered By: Karl Fritz on 11-52-2162Xyaorcrb identified Aer cx Nom (Unsp spec)Klebsiella oxytocaAbCleveland Clinic [facility] Bacteria identified Aer cx Nom (Unsp spec)Staphylococcus aureusAbWilson Healthuperficial Wound Cultureon 22-05-2290Onjqkcbbaop Wound CultureORGANISM: Klebsiella oxytoca (O:KLEOXY) Quantity of [...] RESISTANT TO ALL B-LACTAM DRUGS. PERFORMED BY: [place] [address] PATHOLOGIST SOCIAL INSURANCE ADVISER BENNIE HIGGINBOTHAM M.D.NormalOrlando Va Medical Center Physician GroupComment on above: Performed By: #### CMP, MG, PHOS, CBC #### [place] [address] USAXR Foot - right 3 Viewson 80-42-2283Icboeig Result: Three views of the right foot: [...] plantar sesamoids and metatarsal head right 1st metatarsal.[facility] HealthcareRadiology Study observation (narrative)[facility] Networkillary blood glucose measurement by glucometer (mass/volume)Ordered By: Manjit Gleason on 59-51-8350Lfgjbca [Mass/Vol]234 mg/dLNoKettering Health Springfield Comment on above:Random Glucose Reference [...] By: #### CMP, MG, PHOS, CBC #### [facility] [address] [place] [address] USAGlucose Glucometer (BldC) [Mass/Vol]Ordered By: Manjit Gleason on 78-78-3298Nxghaje [Mass/Vol]Capillary blood glucose measurement by glucometer (mass/volume)[facility] Medical CenterComment on above:Random Glucose Reference Range is dependent on time and content of last meal. Glucose of more than 200 mg/dL in a nonstressed, ambulatory subject supports the diagnosis of Diabetes Mellitus.Glucose Poct Glucometerson 90-61-3580Icxyvcc5 Glu2: Cleaned [facility] Physician GroupComment on above:Result Comment: PERFORMED BY: [place] [id number] PATHOLOGIST SOCIAL INSURANCE ADVISER LE MACE M.D.Performed By: #### CMP, MG, PHOS, CBC #### [address] [address] USANo Panel InformationOrdered By: Manjit Gleason on 09-10-2024 Miscellaneous Pathology TestSee Lima City HospitalComment on above:See report. Scanned copy available in EMR.Bedside Glucose CommentGlu2: cleaned [facility] HospitalPathology Request for Lab Corpon 08-85-6522Vqxiuhykm Request for Lab CorpAscension Sacred [facility] Physician Group Comment on above:Order Comment: GI SPECIMENResult Comment: See report. Scanned copy available in EMR. PERFORMED BY: [place] [id number] PATHOLOGIST SOCIAL INSURANCE ADVISER LE MACE M.D.Performed By: #### CMP, MG, PHOS, CBC #### [facility] [address] [place] [address] NIINaH9a HPLC (Bld) [Mass fraction]on 29-36-3864MoX2k (Bld) [Mass fraction]Hemoglobin A1c/Hemoglobin.total in Blood by Kettering Memorial HospitalHbA1c (Bld) [Mass fraction]8.8 %[facility] CenterNo Panel Informationon 76-13-7996Etcznto Atkrixn186AzhciviifPremier Health Upper Valley Medical CenterUS ankle/arm indiceson 63-71-6667IQ ankle/arm indices [facility] [address] [place] [address] Ultrasound Report Signed Patient: Taye Gay MR#: [id number] 19 : 1955 Acct:[id number] Age/Sex: 68 / F ADM Date: 07/22/24 Loc: [facility] Room: Type: [facility] Attending Dr: Tray Nava MD Ordering Provider: [...] Eugenio Rob M.D.07/23/2024 9:21 AM Dictation Location: [place] [address] Tech: Carmelita Carlos Manuel Transcribed By: [facility] 07/23/24 0921 Dictated By: Eugenio Rob MD 07/23/24 0920 Signed By: 07/23/24 0921[facility] Physician GroupUrine Cultureon 07-06-2024 Bacteria identified Cx Nom (U)ORGANISM: Klebsiella oxytoca (O:KLEOXY) [place] Count >100,000 Aerobic FAMILIA Charge (NMIC56) SUSCEPTIBILITY [...] RESISTANT TO ALL B-LACTAM DRUGS. PERFORMED BY: [place] [address] PATHOLOGIST SOCIAL INSURANCE ADVISER LE MACE M.D.[facility] Physician GroupComment on above: Performed By: #### CMP, MG, PHOS, CBC #### [place] [address] USAUrine cultureOrdered By: Deneen Frost on 07-06-2024 Bacteria identified Cx Nom (U)AbnormalPremier Health Upper Valley Medical CenterAlanine aminotransferase [Enzymatic activity/volume] in Serum or PlasmaOrdered By: Angelique Russell on 59-95-1152UYJ [Catalytic activity/Vol]Alanine aminotransferase [Enzymatic activity/volume] in Serum or Plasma7-[facility] CenterAlbumin [Mass/volume] in Serum or Plasma by Bromocresol green (BCG) dye binding methoOrdered By: Angelique Russell on 08-27-6982Oadepio BCG dye [Mass/Vol] Albumin [Mass/volume] in Serum or Plasma by Bromocresol green (BCG) dye binding metho3.5-5.7FSelect Medical Cleveland Clinic Rehabilitation Hospital, BeachwoodAlkaline phosphatase [Enzymatic activity/volume] in Serum or PlasmaOrdered By: Angelique Russell on 11-47-2438PDJ [Catalytic activity/Vol]Alkaline phosphatase [Enzymatic activity/volume] in Serum or Jmuoos75-745PnfxdjibqPremier Health Upper Valley Medical CenterAspartate aminotransferase [Enzymatic activity/volume] in Serum or PlasmaOrdered By: Angelique Russell on 25-81-7421KPM [Catalytic activity/Vol]Aspartate aminotransferase [Enzymatic activity/volume] in Serum or Cbftps14-89RtfhddzavPremier Health Upper Valley Medical CenterB-Type Natriuretic Peptideon 68-51-2595Jawzqglkojf peptide B (Bld) [Mass/Vol]54.0 pg/mL Normal5-100The [facility] Hospital Physician GroupComment on above:Result Comment: PERFORMED BY: [facility] [address] [place] [address] PATHOLOGIST SOCIAL INSURANCE ADVISER LE MACE M.D.Performed By: #### CMP, MG, PHOS, CBC #### [facility] [address] [place] [address] USABCR-ABL Neogenomicon 31-68-0135XWI-ABL NeogenomicNormAdventHealth North Pinellas Physician Yalobusha General HospitalComment on above:Result Comment: See report. Scanned copy available in EMR. PERFORMED BY: [facility] [address] [place] [address] PATHOLOGIST SOCIAL INSURANCE ADVISER LE MACE M.D.Performed By: #### CMP, MG, PHOS, CBC #### [facility] [address] [place] [address] USABasophils Auto (Bld) [#/Vol]Ordered By: Nataliya Jane on 85-47-2052Bujiqrnhu (Bld) [#/Vol]Automated basophil count0.0-0.2FSelect Medical Cleveland Clinic Rehabilitation Hospital, BeachwoodBasophils/100 WBC Auto (Bld)Ordered By: Nataliya Jane on 20-34-1320Plmkzysjz/100 WBC (Bld)Automated basophil %.[facility] Medical CenterBilirubin.total [Mass/volume] in Serum or PlasmaOrdered By: Angelique Russell on 53-84-4603Jxphbstyt [Mass/Vol]Bilirubin.total [Mass/volume] in Serum or Plasma0.3-1.0[facility] Medical CenterCBC W Auto Differential panel (Bld)on 47-09-1460Gndvcbhpw (Bld) [#/Vol]0 10*3/uL0.0 - 0.2 10*3/uLNOMS HealthcareBasophils/100 WBC Manual cnt (Syn fld)0.5 %.[facility] HealthcareEosinophils (Bld) [#/Vol]0.2 10*3/uL0.0 - 0.45 10*3/uLNOMS HealthcareEosinophils/100 WBC Manual cnt (Syn fld)2.7 %.[facility] CenterErythrocyte distribution width (RBC) [Ratio]14.6 %11.9 - 15.3 %[facility] HealthcareHematocrit (Bld) [Volume fraction]46.4 %34.0 - 46.4 %[facility] Medical CenterHemoglobin (Bld) [Mass/Vol]15.8 g/aAYzsp78.8 - 15.4 g/dLCameron Regional Medical CenterInterpretation and review of laboratory resultsAbnormalCameron Regional Medical CenterLymphocytes (Bld) [#/Vol]1.6 10*3/uL1.00 - 4.8 10*3/uLNOMS Healthcare Lymphocytes/100 WBC Manual cnt (Syn fld)23.1 %.[facility] HospitalH (RBC) [Entitic mass]32.6 pg24.7 - 34.3 pgOzarks Community HospitalHC (RBC) [Mass/Vol]34.2 g/dL32.0 - 35.0 g/dLOzarks Community HospitalV (RBC) [Entitic vol]95.3 fL80 - 100 fLCameron Regional Medical Center Monocytes (Bld) [#/Vol]0.5 10*3/uL0.0 - 0.8 10*3/uLNOCitizens Memorial Healthcare Monocytes+Macrophages/100 WBC Manual cnt (Syn fld)6.6 %.[facility] Neutrophils (Bld) [#/Vol]4.6 10*3/uL1.8 - 7.7 10*3/uLNOMS Healthcare Neutrophils/100 WBC Manual cnt (Syn fld)67.1 %.NOMS HealthcareNRBC0.1 /100{WBC}0 - 0.5 /100{WBC}NOMS HealthcarePlatelet mean volume (Bld) [Entitic vol]10.4 fL 6.3 - 10.7 fLNOMS HealthcarePlatelets (Bld) [#/Vol]120 10*3/tFDau666 - 450 10*3/uLNOMS HealthcareRBC LM.HPF (Urine sed) [#/Area]4.86 10*6/uL3.60 - 5.00 10*6/uLNOMS HealthcareWBC (Bld) [#/Vol]6.9 10*3/uL3.8 - 11.6 10*3/uLNOMS HealthcareWBC LM.HPF (Urine sed) [#/Area]6.9 10*3/uL3.8 - 11.6 10*3/uLNOMS HealthcareNOMS HealthcareCalcium [Mass/volume] in Serum or PlasmaOrdered By: Angelique Russell on 99-29-7849Pcmxsem [Mass/Vol]Calcium [Mass/volume] in Serum or Plasma8.6-10.3FSelect Medical Cleveland Clinic Rehabilitation Hospital, BeachwoodCarbon dioxide, total [Moles/volume] in Serum or PlasmaOrdered By: Angelique Russell on 67-41-6050NV4 [Moles/Vol]Carbon dioxide, total [Moles/volume] in Serum or Fytbco05.0-31.0 [facility] CenterChloride [Moles/volume] in Serum or Plasma Ordered By: Angelique Russell on 05-69-0922Cznxagnb [Moles/Vol]Chloride [Moles/volume] in Serum or Gvrtfg18-438ZtojrdbtaPremier Health Upper Valley Medical Center Cholesterol [Mass/volume] in Serum or PlasmaOrdered By: Angelique Russell on 31-83-4697Zdxiquigtda [Mass/Vol]Cholesterol [Mass/volume] in Serum or PlasmaLow 140-200Prem[facility] Valley Medical CenterComment on above:Chol less than 200 mg/dl low riskChol 201-239 mg/dl borderline riskChol 240 mg/dl and greater high riskCholesterol in HDL [Mass/volume] in Serum or PlasmaOrdered By: Angelique Russell on 20-85-5899Dljksogcyhf in HDL [Mass/Vol]Serum or plasma high density lipoprotein (HDL) cholesterol azkrglpmjhh63-23SolzdlnmlPremier Health Upper Valley Medical Center Comment on above:HDL CHOL ATP-III CLASSIFICATION Cardiovascular RiskHDL > or equal to 60 mg/dL LOWHDL < 40 mg/dL HIGHCholesterol in LDL Calc [Mass/Vol] Ordered By: Angelique Russell on 65-35-5510Ginfblyytdd in LDL [Mass/Vol]Cholesterol in LDL [Mass/volume] in Serum or Plasma by calculationPremier Health Upper Valley Medical CenterComment on above:LDL ATP III CLASSIFICATIONLDL less than 100 mg/dL OptimalLDL 100-129 mg/dL Near or above ifjeertONH052-510 mg/dL Borderline highLDL 160-189 mg/dL HighLDL greater than 189 mg/dL Very highCholesterol in VLDL Calc [Mass/Vol]Ordered By: Angelique Russell on 60-39-8406Ctvkvratvbc in VLDL [Mass/Vol]Cholesterol in VLDL [Mass/volume] in Serum or Plasma by calculation [facility] CenterComplete Blood Count Auto Diffon 06-26-2024 Basophils (Bld) [#/Vol]0.0 10*3/uLNormal0.0-0.2[facility] Comment on above:Result Comment: PERFORMED BY: [place] [address] PATHOLOGIST SOCIAL INSURANCE ADVISER LE MACE M.D.Performed By: #### CMP, MG, PHOS, CBC #### [facility] [address] [place] [address] USABasophils/100 WBC (Bld)0.5 %Normal.The [facility] Access Hospital Physician GroupComment on above:Performed By: #### CMP, MG, PHOS, CBC #### [facility] [address] [place] [address] USAEosinophils (Bld) [#/Vol]0.2 10*3/uLNormal0.0-0.45The [facility] Access Hospital Physician GroupComment on above:Performed By: #### CMP, MG, PHOS, CBC #### [place] [address] USAEosinophils/100 WBC (Bld)2.7 %Normal.The [facility] Hospital Physician GroupComment on above:Performed By: #### CMP, MG, PHOS, CBC #### [place] [address] USAErythrocyte distribution width (RBC) [Ratio]14.6 %Normal 11.9-15.3The [facility] Access Hospital Physician GroupComment on above:Performed By: #### CMP, MG, PHOS, CBC #### [place] [address] USAHematocrit (Bld) [Volume fraction]46.4 %Ouhstf26.0-46.4The [facility] Access Hospital Physician GroupComment on above:Performed By: #### CMP, MG, PHOS, CBC #### [place] [address] USAHemoglobin (Bld) [Mass/Vol]15.8 g/pJDkkn56.8-15.4The [facility] Hospital Physician GroupComment on above:Performed By: #### CMP, MG, PHOS, CBC #### [place] [address] USALymphocytes (Bld) [#/Vol]1.6 10*3/uLNormal1.00-4.8The [facility] Access Hospital Physician GroupComment on above:Performed By: #### CMP, MG, PHOS, CBC #### [place] [address] USALymphocytes/100 WBC (Bld)23.1 %Normal.The [facility] Hospital Physician GroupComment on above:Performed By: #### CMP, MG, PHOS, CBC #### [place] [address] USAMCH (RBC) [Entitic mass]32.6 qcVolmlv39.7-34.3The [facility] Hospital Physician GroupComment on above:Performed By: #### CMP, MG, PHOS, CBC #### [address] [place] [address] USAMCV (RBC) [Entitic vol]95.3 wPIcftus70-346Gcy [facility] Physician GroupComment on above:Performed By: #### CMP, MG, PHOS, CBC #### [place] [address] USAMean Corpuscular HGB Conc34.2 g/xKKszscu55.0-35.0The [facility] Hospital Physician GroupComment on above:Performed By: #### CMP, MG, PHOS, CBC #### [place] [address] USAMonocytes (Bld) [#/Vol]0.5 10*3/uLNormal0.0-0.8The [facility] Hospital Physician GroupComment on above:Performed By: #### CMP, MG, PHOS, CBC #### [place] [address] USAMonocytes/100 WBC (Bld)6.6 %Normal.The [facility] Hospital Physician GroupComment on above:Performed By: #### CMP, MG, PHOS, CBC #### [place] [address] USANeutrophils (Bld) [#/Vol]4.6 10*3/uLNormal1.8-7.7The [facility] Hospital Physician GroupComment on above:Performed By: #### CMP, MG, PHOS, CBC #### [place] [address] USANeutrophils/100 WBC (Bld)67.1 %Normal.The [facility] Hospital Physician GroupComment on above:Performed By: #### CMP, MG, PHOS, CBC #### [place] [address] USANRBC%0.1 /100{WBC}Normal0-0.5The [facility] Comment on above:Performed By: #### CMP, MG, PHOS, CBC #### [place] [address] USAPlatelet mean volume (Bld) [Entitic vol]10.4 fLNormal 6.3-10.7The [facility] Hospital Physician GroupComment on above:Performed By: #### CMP, MG, PHOS, CBC #### [place] [address] USAPlatelets (Bld) [#/Vol]120 10*3/jTYcv268-012Jad [facility] Physician GroupComment on above:Performed By: #### CMP, MG, PHOS, CBC #### [place] [address] USARBC (Bld) [#/Vol]4.86 10*6/uLNormal3.60-5.00The [facility] Hospital Physician GroupComment on above:Performed By: #### CMP, MG, PHOS, CBC #### [place] [address] USAWBC (Bld) [#/Vol]6.9 10*3/uLNormal3.8-11.6The [facility] Hospital Physician GroupComment on above:Performed By: #### CMP, MG, PHOS, CBC #### [place] [address] USAComprehensive Metabolic Panelon 14-11-2771Dkeruvw [Mass/Vol]3.8 g/dLNormal3.5-5.7The [facility] Hospital Physician GroupComment on above: Performed By: #### CMP, MG, PHOS, CBC #### [place] [address] USAAlbumin/Globulin [Mass ratio]1.5 {ratio}NormalThe Critical Access Hospital Physician GroupComment on above:Performed By: #### CMP, MG, PHOS, CBC #### [place] [address] USAALP [Catalytic activity/Vol]92 U/HKdwzyr95-521Jax [facility] Physician GroupComment on above:Result Comment: PERFORMED BY: [place] [address] PATHOLOGIST SOCIAL INSURANCE ADVISER LE MACE M.D.Performed By: #### CMP, MG, PHOS, CBC #### [facility] [address] [place] [address] USAALT [Catalytic activity/Vol]23 U/LNormal7-52The [facility] Hospital Physician GroupComment on above:Performed By: #### CMP, MG, PHOS, CBC #### [facility] [address] [place] [address] USAAnion gap [Moles/Vol]12.2 mmol/LNormal6.0-15.0The [facility] Hospital Physician GroupComment on above:Performed By: #### CMP, MG, PHOS, CBC #### [facility] [address] [place] [address] USAAST [Catalytic activity/Vol]36 U/ITbblac75-47Zaj [facility] Physician GroupComment on above:Performed By: #### CMP, MG, PHOS, CBC #### [place] [address] USABilirubin [Mass/Vol]0.4 mg/dLNormal0.3-1.0The [facility] Hospital Physician GroupComment on above:Performed By: #### CMP, MG, PHOS, CBC #### [facility] [address] [place] [address] USACalcium [Mass/Vol]9.4 mg/dLNormal8.6-10.3The [facility] Hospital Physician GroupComment on above:Performed By: #### CMP, MG, PHOS, CBC #### [place] [address] USAChloride [Moles/Vol]103 mmol/IWoitkm81-187Bem [facility] Physician GroupComment on above:Performed By: #### CMP, MG, PHOS, CBC #### [facility] [address] [place] [address] USACO2 [Moles/Vol]29.0 mmol/WEzkqjn38.0-31.0The [facility] Hospital Physician GroupComment on above:Performed By: #### CMP, MG, PHOS, CBC #### [facility] [address] [place] [address] USACreatinine [Mass/Vol]0.93 mg/dLNormal0.60-1.20The [facility] Hospital Physician GroupComment on above:Performed By: #### CMP, MG, PHOS, CBC #### [place] [address] USAGFR/1.73 sq M.predicted MDRD (S/P/Bld) [Vol rate/Area] mL/min/{1.73_m2}NormalThe Critical Access Hospital Physician GroupComment on above:Performed By: #### CMP, MG, PHOS, CBC #### [place] [address] USAGlobulin (S) [Mass/Vol]2.6 g/dLNormalThe Critical Access Hospital Physician GroupComment on above:Performed By: #### CMP, MG, PHOS, CBC #### [place] [address] USAGlucose [Mass/Vol]256 mg/iXExxz51-784Syn [facility] Physician GroupComment on above:Result Comment: Random Glucose Reference Range is dependent on time and content of last meal. Glucose of more than 200 mg/dL in a nonstressed, ambulatory subject supports the diagnosis of Diabetes Mellitus. ADA recommended reference rangePerformed By: #### CMP, MG, PHOS, CBC #### [place] [address] USAPotassium [Moles/Vol]4.2 mmol/LNormal3.5-5.1The [facility] Hospital Physician GroupComment on above:Performed By: #### CMP, MG, PHOS, CBC #### [place] [address] USAProtein [Mass/Vol]6.4 g/dLNormal6.4-8.9The [facility] Hospital Physician GroupComment on above:Performed By: #### CMP, MG, PHOS, CBC #### [place] [address] USASodium [Moles/Vol]140 mmol/AScqadw454-353Azg [facility] Physician GroupComment on above:Performed By: #### CMP, MG, PHOS, CBC #### [address] [place] [address] USAUrea nitrogen [Mass/Vol]9 mg/dLNormal [facility] Physician GroupComment on above:Performed By: #### CMP, MG, PHOS, CBC #### [facility] [address] [place] [address] USACreatinine [Mass/volume] in Serum or PlasmaOrdered By: Angelique Russell on 08-26-5302Qdehonvwtd [Mass/Vol]Creatinine [Mass/volume] in Serum or Plasma0.60-1.20[facility] Medical CenterCreatinine [Mass/volume] in UrineOrdered By: Angelique Russell on 48-52-4098Sevxwiebrb (U) [Mass/Vol]Creatinine [Mass/volume] in UrinePremier Health Upper Valley Medical CenterComment on above:No reference range establishedECG 12 [place] 53-54-6908Frtmaa sinus rhythmCPACS [facility] Work Phone: Eosinophils Auto (Bld) [#/Vol]Ordered By: Nataliya Jane on 31-29-3896Sfwxmppokfa (Bld) [#/Vol]Automated eosinophil count 0.0-0.45[facility] Medical CenterEosinophils/100 WBC Auto (Bld)Ordered By: Nataliya Jane on 85-42-0534Mhhegyvrkss/100 WBC (Bld)Automated eosinophil %. [facility] Medical CenterErythrocyte distribution width Auto (RBC) [Ratio]Ordered By: Nataliya Jane on 79-54-2354Kbftvbaeipf distribution width (RBC) [Ratio]Erythrocyte distribution width [Ratio] by Automated count11.9-15.3 [facility] Medical CenterFlowcytometry Neogenomicon 06-26-2024 Flowcytometry NeogenomicNoMission Hospital McDowell Physician GroupComment on above: Result Comment: See report. Scanned copy available in EMR.Performed By: #### CMP, MG, PHOS, CBC #### [facility] [address] [place] [address] USAGlobulin Calc (S) [Mass/Vol]Ordered By: Angelique Russell on 86-43-9367Bveomcuq (S) [Mass/Vol]Serum globulin measurement by calculation (mass/volume)[facility] CenterGlucose [Mass/volume] in Serum or PlasmaOrdered By: Angelique Russell on 33-62-0019Dvkkhxl [Mass/Vol]Glucose [Mass/volume] in Serum or DayiqjIjdv14-426KgrekijhrPremier Health Upper [facility] Medical Center Comment on above:ADA recommended reference rangeRandom Glucose Reference Range is dependent on time and content of last meal. Glucose of more than 200 mg/dL in a nonstressed, ambulatory subject supports the diagnosisof Diabetes Mellitus. Hematocrit Auto (Bld) [Volume fraction]Ordered By: Nataliya Lucinda on 06-26-2024 Hematocrit (Bld) [Volume fraction]Hematocrit [Volume Fraction] of Blood by Automated count34.0-46.4FSelect Medical Cleveland Clinic Rehabilitation Hospital, BeachwoodHemoglobin [Mass/volume] in BloodOrdered By: Nataliya Lucinda on 55-61-8428Rumlpclpwe (Bld) [Mass/Vol]Hemoglobin [Mass/volume] in EilwuBexs74.8-15.4FSelect Medical Cleveland Clinic Rehabilitation Hospital, BeachwoodJAK 2 Neogenomicon 08-68-2410PYC 2 NeogenomicNormUniversity Hospitals Elyria Medical Centere Critical Access Hospital Physician GroupComment on above:Result Comment: See report. Scanned copy available in EMR.Performed By: #### CMP, MG, PHOS, CBC #### [facility] [address] [place] [address] USALeukocytes [#/volume] corrected for nucleated erythrocytes in Blood by Automated counOrdered By: Nataliya Lucinda on 45-24-6111VGZ corrected for nucl RBC Auto (Bld) [#/Vol]Leukocytes [#/volume] corrected for nucleated erythrocytes in Blood by Automated coun3.8-11.6FSelect Medical Cleveland Clinic Rehabilitation Hospital, Beachwood Lipid Panelon 78-25-0556Geamvwgkuaj [Mass/Vol]93 mg/qPLwj085-129Uux Critical Access Hospital Physician GroupComment on above:Result Comment: Chol less than 200 mg/dl low risk Chol 201-239 mg/dl borderline risk Chol 240 mg/dl and greater high riskPerformed By: #### CMP, MG, PHOS, CBC #### [facility] [address] [place] [address] USACholesterol in HDL [Mass/Vol]27 mg/uOVyjgqu41-45Uxs Critical Access Hospital Physician GroupComment on above:Result Comment: HDL CHOL ATP-III CLASSIFICATION Cardiovascular Risk HDL > or equal to 60 mg/dL LOW HDL < 40 mg/dL HIGHPerformed By: #### CMP, MG, PHOS, CBC #### [facility] [address] [place] [address] USACholesterol.total/Cholesterol in HDL [Mass ratio]3.4 {ratio}Normal<5.0The Critical Access Hospital Physician GroupComment on above:Performed By: #### CMP, MG, PHOS, CBC #### [facility] [address] [place] [id number] USALDL Cholesterol,Chsglrcudj30 mg/dLNormal0-100The Critical Access Hospital Physician GroupComment on above:Result Comment: LDL ATP III CLASSIFICATION LDL less than 100 mg/dL Optimal LDL 100-129 mg/dL Near or above optimal LDL 130-159 mg/dL Borderline high LDL 160-189 mg/dL High LDL greater than 189 mg/dL Very highPerformed By: #### CMP, MG, PHOS, CBC #### [facility] [address] [place] [id number] USATriglyceride w/Tonmtr271 mg/dLHigh0-149The Critical Access Hospital Physician GroupComment on above:Result Comment: TRIG ATP III CLASSIFICATION TRIG less than 150 mg/dL Normal TRIG 150-199 mg/dL Borderline high TRIG 200-500 mg/dL High TRIG greater than 500 mg/dL Very high Standard traceable to the Center for Disease Conrtrol and Prevention (CDC) test method.Performed By: #### CMP, MG, PHOS, CBC #### [facility] [address] [place] [id number] USAVLDL PZPTIIYIGKR29 mg/dLNormalThe Critical Access Hospital Physician GroupComment on above:Performed By: #### CMP, MG, PHOS, CBC #### [facility] [address] [place] [id number] USALymphocytes Auto (Bld) [#/Vol]Ordered By: Nataliya Jane on 86-39-9897Nptlymijiju (Bld) [#/Vol]Lymphocytes [#/volume] in Blood by Automated count1.00-4.8Firelands Regional Medical CenterLymphocytes/100 WBC Auto (Bld) Ordered By: Nataliya Gaonaoren on 85-80-4286Nujmohaojbe/100 WBC (Bld)Lymphocytes/100 leukocytes in Blood by Automated count.[facility] Auto (RBC) [Entitic mass]Ordered By: Nataliya Lucinda on 15-09-7969CWM (RBC) [Entitic mass]MCH [Entitic mass] by Automated count24.7-34.3FCleveland Clinic Mentor HospitalHC Auto (RBC) [Mass/Vol]Ordered By: Nataliya Lucinda on 22-64-8705BTHQ (RBC) [Mass/Vol]MCHC [Mass/volume] by Automated count32.0-35.0[facility] CenterV Auto (RBC) [Entitic vol]Ordered By: Nataliya Lucinda on 64-94-6877FVY (RBC) [Entitic vol]MCV [Entitic volume] by Automated yfyns77-402 [facility] CenterMicroAlb Creat Ratio,Uon 64-86-3613Fgwhumt DL <= 20 mg/L (U) [Mass/Vol]mg/dLNormal0.0-1.8The Critical Access Hospital Physician GroupComment on above:Performed By: #### CMP, MG, PHOS, CBC #### [place] [address] USACreatinine, Urine (Random)65.00 mg/dLNormalThe Critical Access Hospital Physician GroupComment on above:Result Comment: No reference range established Performed By: #### CMP, MG, PHOS, CBC #### [facility] [address] [place] [address] USAMicroalbumin/Creatinine RatioNot performedNormal0.0-30.0 The Critical Access Hospital Physician GroupComment on above:Result Comment: PERFORMED BY: [place] [address] PATHOLOGIST SOCIAL INSURANCE ADVISER LE MACE M.D.Performed By: #### CMP, MG, PHOS, CBC #### [place] [address] USAMicroalbumin [Mass/volume] in UrineOrdered By: Angelique Russell on 95-93-4611Jkczbjn DL <= 20 mg/L (U) [Mass/Vol]Microalbumin [Mass/volume] in Urine0.0-1.8[facility] Medical CenterMonocytes Auto (Bld) [#/Vol]Ordered By: Nataliya Jane on 39-71-3033Ajocipffa (Bld) [#/Vol] Automated blood monocyte count0.0-0.8[facility] Monocytes/100 WBC Auto (Bld)Ordered By: Nataliya Jane on 91-56-3704Noecwfeot/100 WBC (Bld)Automated monocyte %.[facility] Medical CenterNatriuretic peptide B [Mass/Vol]Ordered By: Roland Faust on 69-68-6414Dcfxqvanfgo peptide B (Bld) [Mass/Vol]BNP ser/plas5-100[facility] Neutrophils Auto (Bld) [#/Vol]Ordered By: Nataliya Jane on 51-21-9987Myqbjqnywyd (Bld) [#/Vol]Neutrophils [#/volume] in Blood by Automated count1.8-7.7FSelect Medical Cleveland Clinic Rehabilitation Hospital, BeachwoodNeutrophils/100 WBC Auto (Bld)Ordered By: Nataliya Jane on 98-69-4413Ttsysihmaoh/100 WBC (Bld)Automated neutrophil %.[facility] CenterNo Panel InformationOrdered By: Angelique Russell on 06-26-2024 Estimated GFR (CKD-EPI)> 60.0 mL/MinPremier Health Upper Valley Medical CenterPharmacy Creatinine Clearance (ChemN/AFSelect Medical Cleveland Clinic Rehabilitation Hospital, BeachwoodNo Panel InformationOrdered By: Nataliya Jane on 28-38-0286JEA/ablSee commentPremier Health Upper Valley Medical CenterComment on above:See report. Scanned copy available in EMR.JAK2 E557GCgg Lima City HospitalComment on above:See report. Scanned copy available in EMR.Nucleated erythrocytes [Presence] in Blood by Automated countOrdered By: Nataliya Jane on 28-52-6024Xrkfwwgse RBC Auto Ql (Bld)Nucleated erythrocytes [Presence] in Blood by Automated count0-0.5FSelect Medical Cleveland Clinic Rehabilitation Hospital, BeachwoodPlatelet mean volume Auto (Bld) [Entitic vol]Ordered By: Nataliya Jane on 35-50-3772Tryemesq mean volume (Bld) [Entitic vol]Platelet mean volume [Entitic volume] in Blood by Automated count6.3-10.7FSelect Medical Cleveland Clinic Rehabilitation Hospital, BeachwoodPlatelets Auto (Bld) [#/Vol]Ordered By: Nataliya Jane on 95-73-1927Grojjxqks (Bld) [#/Vol]Platelets [#/volume] in Blood by Automated yhdnvJue484-813LewtwwnqfPremier Health Upper Valley Medical CenterPotassium [Moles/volume] in Serum or PlasmaOrdered By: Barbera Yvonne on 71-55-6458Hyerljjpq [Moles/Vol] Potassium [Moles/volume] in Serum or Plasma3.5-5.1FSelect Medical Cleveland Clinic Rehabilitation Hospital, BeachwoodProtein [Mass/volume] in Serum or PlasmaOrdered By: Barbera Yvonne on 08-56-9537Etqiarg [Mass/Vol]Protein [Mass/volume] in Serum or Plasma6.4-8.9 [facility] CenterRBC Auto (Bld) [#/Vol]Ordered By: Nataliya Jane on 73-09-6332XXG (Bld) [#/Vol]Erythrocytes [#/volume] in Blood by Automated count3.60-5.00Pomerene Hospitalerum or plasma albumin/globulin mass ratioOrdered By: Barbera Mapus on 95-32-2575Lqwwxyc/Globulin [Mass ratio] Serum or plasma albumin/globulin mass ratioPremier Health Upper Valley Medical Center Serum or plasma anion gap determinationOrdered By: Tondra Mapus on 06-26-2024 Anion gap [Moles/Vol]Serum or plasma anion gap determination6.0-15.0Pomerene Hospitalerum or plasma total cholesterol/high density lipoprotein (HDL) cholesterol mass ratOrdered By: Tondra Mapus on 06-26-2024 Cholesterol.total/Cholesterol in HDL [Mass ratio]Serum or plasma total cholesterol/high density lipoprotein (HDL) cholesterol mass rat<5.0Pomerene Hospitalodium [Moles/volume] in Serum or PlasmaOrdered By: Juliodra Mapus on 22-30-0336Npffgx [Moles/Vol]Sodium [Moles/volume] in Serum or Nmmzat924-037OautmqtjjPremier Health Upper Valley Medical CenterThyroid Stim Hormone w/Rflxon 66-23-5111Rgnqhju Stim Hormone w/Rflx1.45 u[iU]/mLNormal0.45-5.33The Critical Access Hospital Physician GroupComment on above:Result Comment: PERFORMED BY: [facility] [address] [place] [address] PATHOLOGIST SOCIAL INSURANCE ADVISER LE MACE M.D.Performed By: #### CMP, MG, PHOS, CBC #### [facility] [address] [place] [address] USAThyrotropin [Units/volume] in Serum or PlasmaOrdered By: Angelique Russell on 04-40-5840BMQ QnThyrotropin [Units/volume] in Serum or Plasma 0.45-5.33[facility] Medical CenterTriglyceride [Mass/volume] in Serum or PlasmaOrdered By: Angelique Russell on 97-94-2338Fatqkiuwovma [Mass/Vol]Triglyceride [Mass/volume] in Serum or PlasmaHigh0-149[facility] Comment on above:TRIG ATP III CLASSIFICATIONTRIG less than 150 mg/dL NormalTRIG 150-199 mg/dL Borderline highTRIG 200-500 mg/dL High TRIG greater than 500 mg/dL Very highStandard traceable to the Center for Disease Conrtrol and Prevention (CDC) test method.Urea nitrogen [Mass/volume] in Serum or PlasmaOrdered By: Angelique Russell on 04-03-6470Auyt nitrogen [Mass/Vol]Urea nitrogen [Mass/volume] in Serum or Plasma7-25[facility] Medical CenterUrine microalbumin/creatinine mass ratioOrdered By: Angelique Russell on 06-26-2024 Albumin/Creatinine DL <= 20 mg/L (U) [Mass ratio]Urine microalbumin/creatinine mass ratioPremier Health Upper Valley Medical CenterComment on above:Test not performed WBC Auto (Bld) [#/Vol]Ordered By: Nataliya Jane on 12-76-8727RST (Bld) [#/Vol] Leukocytes [#/volume] in Blood by Automated count3.8-11.6FSelect Medical Cleveland Clinic Rehabilitation Hospital, BeachwoodMR head/brain wo/w conon 78-02-4931DJ head/brain wo/w [facility] [place] [address] [place] [address] MRI Report Signed Patient: Taye Gay MR#: [id number] 19 : 1955 Acct:[id number] Age/Sex: 68 / F ADM Date: 05/25/24 Loc: MR Room: Type: [facility] Attending Dr: Sandra Keita DO Copies to: [...] Eugenio Lazo M.D.05/25/2024 7:59 PM Dictation Location: [place] [address] Transcribed By: [facility] 05/25/241958 Dictated By: Eugenio Lazo DO 05/25/241953 Signed By: 05/25/241958[facility] Physician GroupSoutheastern Arizona Behavioral Health Servicesetic resonance imaging reportOrdered By: Eugenio Lazo on 56-62-7647Aacna reportSUBURBAN COMM[facility] [place] [address] [place], [place] [id number] MRI Report Signed Patient: Taye Gay MR#: [id number] : 1955 Acct:[id number] Age/Sex: 68 / F ADM Date: 5 Loc: MR Room: Type: [facility] Attending Dr: Sandra Keita DO Copies to: [...] Eugenio Lazo M.D.05/25/2024 7:59 PM Dictation Location: [place] [address] Transcribed By: [facility] 05/25/241958 Dictated By: Eugenio Lazo DO 05/25/241953 Signed By: 05/25/241958 [facility] CenterAlanine aminotransferase [Enzymatic activity/volume] in Serum or PlasmaOrdered By: Priscilla Lang on 04-03-0050WPZ [Catalytic activity/Vol]Alanine aminotransferase [Enzymatic activity/volume] in Serum or Plasma7-[facility] CenterAlbumin [Mass/volume] in Serum or Plasma by Bromocresol green (BCG) dye binding methoOrdered By: Priscilla Lang on 39-10-1995Aaaxjmi BCG dye [Mass/Vol]Albumin [Mass/volume] in Serum or Plasma by Bromocresol green (BCG) dye binding metho3.5-5.7FSelect Medical Cleveland Clinic Rehabilitation Hospital, BeachwoodAlkaline phosphatase [Enzymatic activity/volume] in Serum or PlasmaOrdered By: Priscilla Lang on 35-22-7730SAG [Catalytic activity/Vol] Alkaline phosphatase [Enzymatic activity/volume] in Serum or Uxhkkn26-127 [facility] CenterAspartate aminotransferase [Enzymatic activity/volume] in Serum or PlasmaOrdered By: Priscilla Lang on 44-34-3542WYL [Catalytic activity/Vol]Aspartate aminotransferase [Enzymatic activity/volume] in Serum or Ideyyl24-00QvrwcknjiPremier Health Upper Valley Medical CenterBasophils Auto (Bld) [#/Vol]Ordered By: Priscilla Lang on 89-70-1718Idxocljbo (Bld) [#/Vol]Automated basophil count0.0-0.2FSelect Medical Cleveland Clinic Rehabilitation Hospital, BeachwoodBasophils/100 WBC Auto (Bld)Ordered By: Priscilla Lang on 99-59-6892Vzvfyoaki/100 WBC (Bld)Automated basophil %.[facility] CenterBilirubin.total [Mass/volume] in Serum or PlasmaOrdered By: Priscilla Lang on 68-79-0239Bbvhtyvyk [Mass/Vol] Bilirubin.total [Mass/volume] in Serum or Plasma0.3-1.0[facility] CenterCalcium [Mass/volume] in Serum or PlasmaOrdered By: Priscilla Lang on 47-78-4761Cvoigsc [Mass/Vol]Calcium [Mass/volume] in Serum or Plasma8.6-10.3 [facility] CenterCarbon dioxide, total [Moles/volume] in Serum or PlasmaOrdered By: Priscilla Lang on 98-04-0019WS2 [Moles/Vol]Carbon dioxide, total [Moles/volume] in Serum or Rdcmqw70.0-31.0[facility] CenterChloride [Moles/volume] in Serum or PlasmaOrdered By: Priscilla Lang on 32-28-3747Lhrwugip [Moles/Vol]Chloride [Moles/volume] in Serum or Bzdafe07-761 [facility] CenterComplete Blood Count Auto Diffon 04-30-2024 Basophils (Bld) [#/Vol]0.0 10*3/uLNormal0.0-0.2The [facility] Comment on above:Result Comment: PERFORMED BY: [facility] [address] [place] [address] PATHOLOGIST SOCIAL INSURANCE ADVISER LE MACE M.D.Performed By: #### CMP, MG, PHOS, CBC #### [place] [address] USABasophils/100 WBC (Bld)0.4 %Normal.The Critical Access Hospital Physician GroupComment on above:Performed By: #### CMP, MG, PHOS, CBC #### [place] [address] USAEosinophils (Bld) [#/Vol]0.2 10*3/uLNormal0.0-0.45The Critical Access Hospital Physician GroupComment on above:Performed By: #### CMP, MG, PHOS, CBC #### [place] [address] USAEosinophils/100 WBC (Bld)2.9 %Normal.The Critical Access Hospital Physician GroupComment on above:Performed By: #### CMP, MG, PHOS, CBC #### [place] [address] USAErythrocyte distribution width (RBC) [Ratio]15.4 %High 11.9-15.3The Critical Access Hospital Physician GroupComment on above:Performed By: #### CMP, MG, PHOS, CBC #### [place] [address] USAHematocrit (Bld) [Volume fraction]44.3 %Kydgjf22.0-46.4The Critical Access Hospital Physician GroupComment on above:Performed By: #### CMP, MG, PHOS, CBC #### [place] [address] USAHemoglobin (Bld) [Mass/Vol]14.7 g/rGNtwitu61.8-15.4The Critical Access Hospital Physician GroupComment on above:Performed By: #### CMP, MG, PHOS, CBC #### [place] [address] USALymphocytes (Bld) [#/Vol]1.8 10*3/uLNormal1.00-4.8The Critical Access Hospital Physician GroupComment on above:Performed By: #### CMP, MG, PHOS, CBC #### [place] [address] USALymphocytes/100 WBC (Bld)24.9 %Normal.The Critical Access Hospital Physician GroupComment on above:Performed By: #### CMP, MG, PHOS, CBC #### [address] (RBC) [Entitic mass]31.4 mcQrvgev00.7-34.3The Critical Access Hospital Physician GroupComment on above:Performed By: #### CMP, MG, PHOS, CBC #### [address] (RBC) [Entitic vol]94.4 lAWfqifd44-857Jat Critical Access Hospital Physician GroupComment on above:Performed By: #### CMP, MG, PHOS, CBC #### [place] [address] USAMean Corpuscular HGB Conc33.3 g/vVYqdkhu40.0-35.0The Critical Access Hospital Physician GroupComment on above:Performed By: #### CMP, MG, PHOS, CBC #### [place] [address] USAMonocytes (Bld) [#/Vol]0.6 10*3/uLNormal0.0-0.8The Critical Access Hospital Physician GroupComment on above:Performed By: #### CMP, MG, PHOS, CBC #### [place] [address] USAMonocytes/100 WBC (Bld)8.3 %Normal.The Critical Access Hospital Physician GroupComment on above:Performed By: #### CMP, MG, PHOS, CBC #### [place] [address] USANeutrophils (Bld) [#/Vol]4.6 10*3/uLNormal1.8-7.7The Critical Access Hospital Physician GroupComment on above:Performed By: #### CMP, MG, PHOS, CBC #### [place] [address] USANeutrophils/100 WBC (Bld)63.5 %Normal.The Critical Access Hospital Physician GroupComment on above:Performed By: #### CMP, MG, PHOS, CBC #### [facility] [address] [place] [address] USANRBC%0.0 /100{WBC}Normal0-0.5The [facility]ician Group Comment on above:Performed By: #### CMP, MG, PHOS, CBC #### [place] [address] USAPlatelet mean volume (Bld) [Entitic vol]9.5 fLNormal 6.3-10.7The Critical Access Hospital Physician GroupComment on above:Performed By: #### CMP, MG, PHOS, CBC #### [place] [address] USAPlatelets (Bld) [#/Vol]119 10*3/lQYmb587-835Tug Critical Access Hospital Physician GroupComment on above:Performed By: #### CMP, MG, PHOS, CBC #### [place] [address] USARBC (Bld) [#/Vol]4.70 10*6/uLNormal3.60-5.00The Critical Access Hospital Physician GroupComment on above:Performed By: #### CMP, MG, PHOS, CBC #### [place] [address] USAWBC (Bld) [#/Vol]7.3 10*3/uLNormal3.8-11.6The Critical Access Hospital Physician GroupComment on above:Performed By: #### CMP, MG, PHOS, CBC #### [place] [address] USAComprehensive Metabolic Panelon 03-92-8599Hmpkhyc [Mass/Vol]3.5 g/dLNormal3.5-5.7The Critical Access Hospital Physician GroupComment on above: Performed By: #### CMP, MG, PHOS, CBC #### [facility] [address] [place] [address] USAAlbumin/Globulin [Mass ratio]1.2 {ratio}NormalThe Critical Access Hospital Physician GroupComment on above:Performed By: #### CMP, MG, PHOS, CBC #### [facility] [address] [place] [address] USAALP [Catalytic activity/Vol]85 U/IBoypxg06-665Hoo Critical Access Hospital Physician GroupComment on above:Performed By: #### CMP, MG, PHOS, CBC #### [facility] [address] [place] [address] USAALT [Catalytic activity/Vol]16 U/LNormal7-52The Critical Access Hospital Physician GroupComment on above:Performed By: #### CMP, MG, PHOS, CBC #### [facility] [address] [place] [address] USAAnion gap [Moles/Vol]10.9 mmol/LNormal6.0-15.0The Critical Access Hospital Physician GroupComment on above:Performed By: #### CMP, MG, PHOS, CBC #### [facility] [address] [place] [address] USAAST [Catalytic activity/Vol]23 U/EOjhazw56-30Ohh Critical Access Hospital Physician GroupComment on above:Performed By: #### CMP, MG, PHOS, CBC #### [facility] [address] [place] [address] USABilirubin [Mass/Vol]0.5 mg/dLNormal0.3-1.0The Critical Access Hospital Physician GroupComment on above:Performed By: #### CMP, MG, PHOS, CBC #### [facility] [address] [place] [address] USACalcium [Mass/Vol]9.3 mg/dLNormal8.6-10.3The Critical Access Hospital Physician GroupComment on above:Performed By: #### CMP, MG, PHOS, CBC #### [facility] [address] [place] [address] USAChloride [Moles/Vol]106 mmol/DNmkktt97-047Neb Critical Access Hospital Physician GroupComment on above:Performed By: #### CMP, MG, PHOS, CBC #### [facility] [address] [place] [address] USACO2 [Moles/Vol]26.9 mmol/LGhapev40.0-31.0[facility] Physician GroupComment on above:Performed By: #### CMP, MG, PHOS, CBC #### [facility] [address] [place] [address] USACreatinine [Mass/Vol]0.80 mg/dLNormal0.60-1.20The Critical Access Hospital Physician GroupComment on above:Performed By: #### CMP, MG, PHOS, CBC #### [facility] [address] [place] [address] USACreatinine Clr Calc Pigtbapz52.38NoMission Hospital McDowell Physician GroupComment on above:Performed By: #### CMP, MG, PHOS, CBC #### [place] [address] USAGFR/1.73 sq M.predicted MDRD (S/P/Bld) [Vol rate/Area] mL/min/{1.73_m2}NormalThe Critical Access Hospital Physician GroupComment on above:Performed By: #### CMP, MG, PHOS, CBC #### [place] [address] USAGlobulin (S) [Mass/Vol]2.9 g/dLNoMission Hospital McDowell Physician GroupComment on above:Performed By: #### CMP, MG, PHOS, CBC #### [place] [address] USAGlucose [Mass/Vol]130 mg/jRCvbu02-790Wcg [facility]lands Physician GroupComment on above:Result Comment: Random Glucose Reference Range is dependent on time and content of last meal. Glucose of more than 200 mg/dL in a nonstressed, ambulatory subject supports the diagnosis of Diabetes Mellitus. ADA recommended reference rangePerformed By: #### CMP, MG, PHOS, CBC #### [place] [address] USAPotassium [Moles/Vol]3.8 mmol/LNormal3.5-5.1The Critical Access Hospital Physician GroupComment on above:Performed By: #### CMP, MG, PHOS, CBC #### [facility] [address] [place] [address] USAProtein [Mass/Vol]6.4 g/dLNormal6.4-8.9The Critical Access Hospital Physician GroupComment on above:Performed By: #### CMP, MG, PHOS, CBC #### [facility] [address] [place] [address] USASodium [Moles/Vol]140 mmol/YVprxkt540-542Bnp Critical Access Hospital Physician GroupComment on above:Performed By: #### CMP, MG, PHOS, CBC #### [facility] [address] [place] [address] USAUrea nitrogen [Mass/Vol]9 mg/dLNormal7-25The Critical Access Hospital Physician GroupComment on above:Performed By: #### CMP, MG, PHOS, CBC #### [facility] [address] [place] [address] USACreatinine [Mass/volume] in Serum or PlasmaOrdered By: Priscilla Lang on 25-29-9761Sqvpgkohss [Mass/Vol]Creatinine [Mass/volume] in Serum or Plasma0.60-1.20[facility] Medical CenterEosinophils Auto (Bld) [#/Vol]Ordered By: Priscilla Lang on 95-23-4319Krugysasotu (Bld) [#/Vol]Automated eosinophil count0.0-0.45[facility] Medical CenterEosinophils/100 WBC Auto (Bld)Ordered By: Priscilla Lang on 43-14-8039Mpvddgfjiwb/100 WBC (Bld) Automated eosinophil %.[facility] Medical CenterErythrocyte distribution width Auto (RBC) [Ratio]Ordered By: Priscilla Lang on 77-59-7783Wyigcgplzun distribution width (RBC) [Ratio]Erythrocyte distribution width [Ratio] by Automated qyyiyBcxd73.9-15.3FSelect Medical Cleveland Clinic Rehabilitation Hospital, BeachwoodGlobulin Calc (S) [Mass/Vol]Ordered By: Priscilla Lang on 05-62-0396Cwgsomjx (S) [Mass/Vol]Serum globulin measurement by calculation (mass/volume)[facility] Medical CenterGlucose Glucometer (BldC) [Mass/Vol]Ordered By: Priscilla Lang on 33-69-5695Rttuzsl [Mass/Vol]Capillary blood glucose measurement by glucometer (mass/volume)[facility] CenterComment on above:Random Glucose Reference Range is dependent on time and content of last meal. Glucose of more than 200 mg/dL in a nonstressed, ambulatory subject supports the diagnosis of Diabetes Mellitus.Glucose Poct Glucometerson 21-24-8436Npglhzs [Mass/Vol]154 mg/dLNoMission Hospital McDowell Physician GroupComment on above:Result Comment: Random Glucose Reference Range is dependent on time and content of last meal. Glucose of more than 200 mg/dL in a nonstressed, ambulatory subject supports the diagnosis of Diabetes Mellitus. PERFORMED BY: [place] [address] PATHOLOGIST SOCIAL INSURANCE ADVISER LE MACE M.D.Performed By: #### CMP, MG, PHOS, CBC #### [facility] [address] [place] [address] USAGlucose [Mass/Vol]134 mg/dLNoMission Hospital McDowell Physician [facility]alobush[facility] General HospitalComment on above:Result Comment: Random Glucose Reference Range is dependent on time and content of last meal. Glucose of more than 200 mg/dL in a nonstressed, ambulatory subject supports the diagnosis of Diabetes Mellitus. PERFORMED BY: [facility] [address] [place] [address] PATHOLOGIST SOCIAL INSURANCE ADVISER LE MACE M.D.Performed By: #### CMP, MG, PHOS, CBC #### [facility] [address] [place] [address] USAGlucose [Mass/volume] in Serum or PlasmaOrdered By: Priscilla Lang on 56-81-9125Akhfyyo [Mass/Vol]Glucose [Mass/volume] in Serum or Plasma Gllj86-607FbhwfkqhyPremier Health Upper Valley Medical CenterComment on above:ADA recommended reference rangeRandom Glucose Reference Range is dependent on time and content of last meal. Glucose of more than 200 mg/dL in a nonstressed, ambulatory subject supports the diagnosisof Diabetes Mellitus.Hematocrit Auto (Bld) [Volume fraction]Ordered By: Priscilla Lang on 78-86-3205Etsrbnahar (Bld) [Volume fraction]Hematocrit [Volume Fraction] of Blood by Automated count34.0-46.4 [facility] CenterHemoglobin [Mass/volume] in BloodOrdered By: Priscilla Lang on 75-47-7645Iduvpjdsjm (Bld) [Mass/Vol]Hemoglobin [Mass/volume] in Blood11.8-15.4FSelect Medical Cleveland Clinic Rehabilitation Hospital, BeachwoodLeukocytes [#/volume] corrected for nucleated erythrocytes in Blood by Automated counOrdered By: Priscilla Lang on 57-09-3929RFX corrected for nucl RBC Auto (Bld) [#/Vol]Leukocytes [#/volume] corrected for nucleated erythrocytes in Blood by Automated coun 3.8-11.6FSelect Medical Cleveland Clinic Rehabilitation Hospital, BeachwoodLymphocytes Auto (Bld) [#/Vol]Ordered By: Priscilla Lang on 13-48-9339Hntplzbyzwr (Bld) [#/Vol]Lymphocytes [#/volume] in Blood by Automated count1.00-4.8[facility] Lymphocytes/100 WBC Auto (Bld)Ordered By: Priscilla Lang on 04-30-2024 Lymphocytes/100 WBC (Bld)Lymphocytes/100 leukocytes in Blood by Automated count. [facility] CenterMCH Auto (RBC) [Entitic mass]Ordered By: Priscilla Lang on 28-35-5442APC (RBC) [Entitic mass]MCH [Entitic mass] by Automated count24.7-34.3FSelect Medical Cleveland Clinic Rehabilitation Hospital, BeachwoodMCHC Auto (RBC) [Mass/Vol]Ordered By: Priscilla Lang on 33-70-5376BNZQ (RBC) [Mass/Vol]MCHC [Mass/volume] by Automated count32.0-35.0[facility] CenterMCV Auto (RBC) [Entitic vol]Ordered By: Priscilla Lang on 17-56-2673QQO (RBC) [Entitic vol]MCV [Entitic volume] by Automated -342GicbfpjwxPremier Health Upper Valley Medical CenterMagnesiumon 96-03-1100Kslgdinhm [Mass/Vol]1.7 mg/dLLow1.9-2.7[facility] Comment on above:Result Comment: PERFORMED BY: [facility] [address] [place] [id number] PATHOLOGIST SOCIAL INSURANCE ADVISER LE MACE M.D.Performed By: #### CMP, MG, PHOS, CBC #### [facility] [address] [place] [address] USAMagnesium [Mass/volume] in Serum or PlasmaOrdered By: Priscilla Lang on 84-53-1603Dvtfvwnfj [Mass/Vol]Magnesium [Mass/volume] in Serum or PlasmaLow1.9-2.7FSelect Medical Cleveland Clinic Rehabilitation Hospital, BeachwoodMonocytes Auto (Bld) [#/Vol] Ordered By: Priscilla Lang on 94-28-9907Gyarffbzc (Bld) [#/Vol]Automated blood monocyte count0.0-0.8[facility] CenterMonocytes/100 WBC Auto (Bld)Ordered By: Priscilla Lang on 35-35-3851Vucrnkjaa/100 WBC (Bld)Automated monocyte %.[facility] CenterNeutrophils Auto (Bld) [#/Vol] Ordered By: Priscilla Lang on 88-01-0923Cqvuvpipewu (Bld) [#/Vol]Neutrophils [#/volume] in Blood by Automated count1.8-7.7FSelect Medical Cleveland Clinic Rehabilitation Hospital, Beachwood Neutrophils/100 WBC Auto (Bld)Ordered By: Priscilla Lang on 04-30-2024 Neutrophils/100 WBC (Bld)Automated neutrophil %.[facility] CenterNo Panel InformationOrdered By: Priscilla Lang on 52-75-5140Ueqocwkgb GFR (CKD-EPI)> 60.0 mL/MinPremier Health Upper Valley Medical CenterPharmacy Creatinine Clearance (Chem82.38[facility] CenterNucleated erythrocytes [Presence] in Blood by Automated countOrdered By: Priscilla Lang on 04-30-2024 Nucleated RBC Auto Ql (Bld)Nucleated erythrocytes [Presence] in Blood by Automated count0-0.5FSelect Medical Cleveland Clinic Rehabilitation Hospital, BeachwoodPhosphate [Mass/volume] in Serum or PlasmaOrdered By: Priscilla Lang on 89-41-0549Zrvsdewir [Mass/Vol] Phosphate [Mass/volume] in Serum or Plasma2.5-4.5FSelect Medical Cleveland Clinic Rehabilitation Hospital, BeachwoodPhosphoruson 47-50-8045Uhanhrlhf [Mass/Vol]2.9 mg/dLNormal2.5-4.5The [facility] Hospital Physician GroupComment on above:Performed By: #### CMP, MG, PHOS, CBC #### [facility] [address] [place] [address] USAPlatelet mean volume Auto (Bld) [Entitic vol]Ordered By: Priscilla Lang on 50-23-7924Omjcutey mean volume (Bld) [Entitic vol]Platelet mean volume [Entitic volume] in Blood by Automated count6.3-10.7FSelect Medical Cleveland Clinic Rehabilitation Hospital, BeachwoodPlatelets Auto (Bld) [#/Vol]Ordered By: Priscilla Lang on 77-62-1066Zdfxwkntl (Bld) [#/Vol]Platelets [#/volume] in Blood by Automated ppqtfMhj101-611XnxprwvpiPremier Health Upper Valley Medical CenterPotassium [Moles/volume] in Serum or PlasmaOrdered By: Priscilla Lang on 69-24-0722Gqxigkvfa [Moles/Vol] Potassium [Moles/volume] in Serum or Plasma3.5-5.1FSelect Medical Cleveland Clinic Rehabilitation Hospital, BeachwoodProtein [Mass/volume] in Serum or PlasmaOrdered By: Priscilla Lang on 92-76-3088Qxzzkcf [Mass/Vol]Protein [Mass/volume] in Serum or Plasma6.4-8.9 [facility] CenterRBC Auto (Bld) [#/Vol]Ordered By: Priscilla Lang on 73-27-7703CYF (Bld) [#/Vol]Erythrocytes [#/volume] in Blood by Automated count3.60-5.00Pomerene Hospitalerum or plasma albumin/globulin mass ratioOrdered By: Priscilla Lang on 25-82-3251Nzaewiu/Globulin [Mass ratio] Serum or plasma albumin/globulin mass ratioPremier Health Upper Valley Medical Center Serum or plasma anion gap determinationOrdered By: Priscilla Lang on 04-30-2024 Anion gap [Moles/Vol]Serum or plasma anion gap determination6.0-15.0Pomerene Hospitalodium [Moles/volume] in Serum or PlasmaOrdered By: Priscilla Lang on 72-88-5956Olfjwu [Moles/Vol]Sodium [Moles/volume] in Serum or Plasma 136-145[facility] CenterUrea nitrogen [Mass/volume] in Serum or PlasmaOrdered By: Priscilla Lang on 58-57-3005Luwp nitrogen [Mass/Vol]Urea nitrogen [Mass/volume] in Serum or Plasma7-25[facility] WBC Auto (Bld) [#/Vol]Ordered By: Priscilla Lang on 17-42-6433OMK (Bld) [#/Vol] Leukocytes [#/volume] in Blood by Automated count3.8-11.6FSelect Medical Cleveland Clinic Rehabilitation Hospital, BeachwoodAmphetamine Screen Ql (U)Ordered By: Priscilla Lang on 04-29-2024 Amphetamines Ql (U)Amphetamines screenNegativePremier Health [facility] Center Barbiturates [Presence] in Urine by Screen methodOrdered By: Priscilla Lang on 71-91-5463Fhmzasuiiogg Screen Ql (U)Barbiturates [Presence] in Urine by Screen methodNegativePremier Health Upper Valley Medical CenterBasic Metabolic Panelon 40-12-8639Cxvxw gap [Moles/Vol]11.3 mmol/LNormal6.0-15.0The [facility] Hospital Physician GroupComment on above:Order Comment: FASTING NPerformed By: #### CMP, MG, PHOS, CBC #### [facility] [address] [place] [address] USACalcium [Mass/Vol]8.9 mg/dLNormal8.6-10.3The [facility] Hospital Physician GroupComment on above:Order Comment: FASTING NPerformed By: #### CMP, MG, PHOS, CBC #### [facility] [address] [place] [id number] USAChloride [Moles/Vol]106 mmol/VZgrbfp82-374Blu [facility] Hospital Physician GroupComment on above:Order Comment: FASTING NPerformed By: #### CMP, MG, PHOS, CBC #### [facility] [address] [place] [address] USACO2 [Moles/Vol]25.2 mmol/DWzmlwt57.0-31.0The [facility] Hospital Physician GroupComment on above:Order Comment: FASTING NPerformed By: #### CMP, MG, PHOS, CBC #### [facility] [address] [place] [address] USACreatinine [Mass/Vol]0.85 mg/dLNormal0.60-1.20The [facility] Hospital Physician GroupComment on above:Order Comment: FASTING NPerformed By: #### CMP, MG, PHOS, CBC #### [facility] [address] [place] [address] USACreatinine Clr Calc Mmavcnga97.21NormalThe Critical Access Hospital Physician GroupComment on above:Order Comment: FASTING NPerformed By: #### CMP, MG, PHOS, CBC #### [place] [address] USAGFR/1.73 sq M.predicted MDRD (S/P/Bld) [Vol rate/Area] mL/min/{1.73_m2}NormalThe Critical Access Hospital Physician GroupComment on above:Order Comment: FASTING NPerformed By: #### CMP, MG, PHOS, CBC #### [place] [address] USAGlucose [Mass/Vol]206 mg/tTHjyv52-371Ynj [facility] Hospital Physician GroupComment on above:Order Comment: FASTING NResult Comment: Random Glucose Reference Range is dependent on time and content of last meal. Glucose of more than 200 mg/dL in a nonstressed, ambulatory subject supports the diagnosis of Diabetes Mellitus. ADA recommended reference rangePerformed By: #### CMP, MG, PHOS, CBC #### [place] [address] USAPotassium [Moles/Vol]3.5 mmol/LNormal3.5-5.1The [facility] Hospital Physician GroupComment on above:Order Comment: FASTING NPerformed By: #### CMP, MG, PHOS, CBC #### [address] [place] [address] USASodium [Moles/Vol]139 mmol/DXjupcm099-336Amt [facility] Hospital Physician GroupComment on above:Order Comment: FASTING NPerformed By: #### CMP, MG, PHOS, CBC #### [facility] [address] [place] [id number] USAUrea nitrogen [Mass/Vol]9 mg/dLNormal7-25The [facility] Hospital Physician GroupComment on above:Order Comment: FASTING NPerformed By: #### CMP, MG, PHOS, CBC #### [facility] [address] [place] [id number] USABenzodiazepines Screen Ql (U)Ordered By: Priscilla Lang on 82-58-6072Gbxalhjlbmtkcjv Ql (U)Benzodiazepines [Presence] in Urine by Screen methodNegativePremier Health Upper Valley Medical CenterBenzoylecgonine [Presence] in Urine by Screen methodOrdered By: Priscilla Lang on 70-81-3835Lixasqgucbfbtdq Screen Ql (U)Benzoylecgonine [Presence] in Urine by Screen methodNegative [facility] CenterCannabinoids [Presence] in Urine by Screen methodOrdered By: Priscilla Lang on 63-32-1832Pzjtbcipgrgt Screen Ql (U) Cannabinoids [Presence] in Urine by Screen methodNegativePremier Health Upper Valley Medical CenterComment on above:These are unconfirmed results and should not be used for legal purposes. Drug Cut-Off Concentration: AMPH 1000 ng/mL KENDRICK 200 ng/mL HEATHER 200 ng/mL COCM 300 ng/mL OP 300 ng/mL PCP 25 ng/mL THC 20 ng/mL Cholesterol [Mass/volume] in Serum or PlasmaOrdered By: Jori Hearn on 09-55-5851Tasygzgifeu [Mass/Vol]Cholesterol [Mass/volume] in Serum or PlasmaLow 140-200Prem[facility] Medical CenterComment on above:Chol less than 200 mg/dl low riskChol 201-239 mg/dl borderline riskChol 240 mg/dl and greater high riskCholesterol in HDL [Mass/volume] in Serum or PlasmaOrdered By: Jori Hearn on 68-77-3269Dhozxtuwkid in HDL [Mass/Vol]Serum or plasma high density lipoprotein (HDL) cholesterol fbpyyoitcfn20-56GirffeomuPremier Health Upper Valley Medical Center Comment on above:HDL CHOL ATP-III CLASSIFICATION Cardiovascular RiskHDL > or equal to 60 mg/dL LOWHDL < 40 mg/dL HIGHCholesterol in LDL Calc [Mass/Vol] Ordered By: Jori Hearn on 82-78-1264Uqyytqxueej in LDL [Mass/Vol]Cholesterol in LDL [Mass/volume] in Serum or Plasma by calculationPremier Health Upper Valley Medical CenterComment on above:LDL ATP III CLASSIFICATIONLDL less than 100 mg/dL OptimalLDL 100-129 mg/dL Near or above gjkkzsyUED014-033 mg/dL Borderline highLDL 160-189 mg/dL HighLDL greater than 189 mg/dL Very highCholesterol in VLDL Calc [Mass/Vol]Ordered By: Jori Hearn on 68-17-0166Icrarxycscz in VLDL [Mass/Vol]Cholesterol in VLDL [Mass/volume] in Serum or Plasma by calculation [facility] CenterDrug Screen,Urineon 59-33-7671Zprvsiecewh Screen,UrineNegativeNormalNegativeThe [facility] Access Hospital Physician GroupComment on above: Performed By: #### CMP, MG, PHOS, CBC #### [facility] [address] [place] [address] USABarbiturate Screen,UrineNegativeNormalNegativeThe Critical Access Hospital Physician GroupComment on above:Performed By: #### CMP, MG, PHOS, CBC #### [facility] [address] [place] [address] USABenzodiazepines Screen,UrineNegativeNormalNegativeThe [facility] Access Hospital Physician GroupComment on above:Performed By: #### CMP, MG, PHOS, CBC #### [facility] [address] [place] [id number] USACannabinoid Screen,UrineNegativeNormalNegativeThe Critical Access Hospital Physician GroupComment on above:Result Comment: These are unconfirmed results and should not be used for legal purposes. Drug Cut-Off Concentration: AMPH 1000 ng/mL KENDRICK 200 ng/mL HEATHER 200 ng/mL COCM 300 ng/mL OP 300 ng/mL PCP 25 ng/mL THC 20 ng/mL PERFORMED BY: [place] [address] PATHOLOGIST SOCIAL INSURANCE ADVISER LE MACE M.D.Performed By: #### CMP, MG, PHOS, CBC #### [place] [address] USACocaine Screen,UrineNegativeNormalNegativeOrlando Va Medical Center Physician GroupComment on above:Performed By: #### CMP, MG, PHOS, CBC #### [place] [address] USAOpiate Screen,UrineNegativeNormalNegativeOrlando Va Medical Center Physician GroupComment on above:Performed By: #### CMP, MG, PHOS, CBC #### [place] [address] USAPhencyclidine Screen,UrineNegativeNormalNegativeOrlando Va Medical Center Physician GroupComment on above:Performed By: #### CMP, MG, PHOS, CBC #### [place] [address] USAGlucose Poct Glucometerson 47-09-6386Pvijedb [Mass/Vol]165 mg/dLNoMission Hospital McDowell Physician [facility]obush[facility] General HospitalComment on above:Result Comment: Random Glucose Reference Range is dependent on time and content of last meal. Glucose of more than 200 mg/dL in a nonstressed, ambulatory subject supports the diagnosis of Diabetes Mellitus. PERFORMED BY: [place] [address] PATHOLOGIST SOCIAL INSURANCE ADVISER LE MACE M.D.Performed By: #### CMP, MG, PHOS, CBC #### [place] [address] GOHImzdzej1Oed5: Cleaned MeterNoMission Hospital McDowell Physician [facility]obusha General HospitalComment on above:Result Comment: PERFORMED BY: [place] [address] PATHOLOGIST SOCIAL INSURANCE ADVISER LE MACE M.D.Performed By: #### GLULS #### Point of Care testing ,Glucose [Mass/Vol]188 mg/dLAscension Sacred Heart Bay Physician GroupComment on above: Result Comment: Random Glucose Reference Range is dependent on time and content of last meal. Glucose of more than 200 mg/dL in a nonstressed, ambulatory subject supports the diagnosis of Diabetes Mellitus.Performed By: #### GLULS #### Point of Care testing ,Iknignu6Xvu5: Cleaned MeterNoMission Hospital McDowell Physician GroupComment on above: Result Comment: PERFORMED BY: [place] [address] PATHOLOGIST SOCIAL INSURANCE ADVISER LE MACE M.D.Performed By: #### CMP, MG, PHOS, CBC #### [place] [address] USAGlucose [Mass/Vol]192 mg/dLAscension Sacred Heart Bay Physician GroupComment on above:Result Comment: Random Glucose Reference Range is dependent on time and content of last meal. Glucose of more than 200 mg/dL in a nonstressed, ambulatory subject supports the diagnosis of Diabetes Mellitus.Performed By: #### CMP, MG, PHOS, CBC #### [place] [address] USAGlucose [Mass/Vol]210 mg/dLNoMission Hospital McDowell Physician GroupComment on above:Result Comment: Random Glucose Reference Range is dependent on time and content of last meal. Glucose of more than 200 mg/dL in a nonstressed, ambulatory subject supports the diagnosis of Diabetes Mellitus. PERFORMED BY: [place] [address] PATHOLOGIST SOCIAL INSURANCE ADVISER LE MACE M.D.Performed By: #### CMP, MG, PHOS, CBC #### [place] [address] USALipid Panelon 91-33-4677Bhmvvhizmpi [Mass/Vol]106 mg/dLLow 140-200The Critical Access Hospital Physician GroupComment on above:Order Comment: FASTING N Result Comment: Chol less than 200 mg/dl low risk Chol 201-239 mg/dl borderline risk Chol 240 mg/dl and greater high riskPerformed By: #### CMP, MG, PHOS, CBC #### [facility] [address] [place] [address] USACholesterol in HDL [Mass/Vol]31 mg/bOGdxuwx64-97Spw [facility] Physician GroupComment on above:Order Comment: FASTING NResult Comment: HDL CHOL ATP-III CLASSIFICATION Cardiovascular Risk HDL > or equal to 60 mg/dL LOW HDL < 40 mg/dL HIGHPerformed By: #### CMP, MG, PHOS, CBC #### [facility] [address] [place] [address] USACholesterol.total/Cholesterol in HDL [Mass ratio]3.4 {ratio}Normal<5.0The [facility] Hospital Physician GroupComment on above:Order Comment: FASTING NResult Comment: PERFORMED BY: [place] [address] PATHOLOGIST SOCIAL INSURANCE ADVISER LE MACE M.D.Performed By: #### CMP, MG, PHOS, CBC #### [place] [id number] USALDL Cholesterol,Csahbgnblb43 mg/dLNormal0-100The [facility] Access Hospital Physician GroupComment on above:Order Comment: FASTING NResult Comment: LDL ATP III CLASSIFICATION LDL less than 100 mg/dL Optimal LDL 100-129 mg/dL Near or above optimal LDL 130-159 mg/dL Borderline high LDL 160-189 mg/dL High LDL greater than 189 mg/dL Very highPerformed By: #### CMP, MG, PHOS, CBC #### [facility] [address] [place] [id number] USATriglyceride w/Krkmdm065 mg/dLHigh0-149The [facility] Access Hospital Physician GroupComment on above:Order Comment: FASTING NResult Comment: TRIG ATP III CLASSIFICATION TRIG less than 150 mg/dL Normal TRIG 150-199 mg/dL Borderline high TRIG 200-500 mg/dL High TRIG greater than 500 mg/dL Very high Standard traceable to the Center for Disease Conrtrol and Prevention (CDC) test method.Performed By: #### CMP, MG, PHOS, CBC #### [facility] [address] [place] [id number] USAVLDL OIHMPSIAECS67 mg/dLNormAdventHealth North Pinellas Physician GroupComment on above:Order Comment: FASTING NPerformed By: #### CMP, MG, PHOS, CBC #### [facility] [address] [place] [address] USANo Panel InformationOrdered By: Priscilla Lang on 65-78-9063Legluxv Glucose CommentGlu2: cleaned meterPremier Health Upper Valley Medical CenterOpiates [Presence] in Urine by Screen methodOrdered By: Priscilla Lang on 31-55-4481Ykdhftl Screen Ql (U)Opiates [Presence] in Urine by Screen method NegativePremier Health Upper Valley Medical CenterPhencyclidine Screen Ql (U)Ordered By: Priscilla Lang on 96-04-0429Qlpnuwlpjkjvn Ql (U)Phencyclidine [Presence] in Urine by Screen methodNegativePomerene Hospitalerum or plasma total cholesterol/high density lipoprotein (HDL) cholesterol mass ratOrdered By: Jori Hearn on 85-07-2693Gxxqgmqmycz.total/Cholesterol in HDL [Mass ratio] Serum or plasma total cholesterol/high density lipoprotein (HDL) cholesterol mass rat<5.0Prem[facility] Medical CenterTriglyceride [Mass/volume] in Serum or PlasmaOrdered By: Jori Hearn on 60-10-1033Wkmhurrjgtpg [Mass/Vol] Triglyceride [Mass/volume] in Serum or PlasmaHigh0-149Prem[facility] Medical CenterComment on above:TRIG ATP III CLASSIFICATIONTRIG less than 150 mg/dL NormalTRIG 150-199 mg/dL Borderline highTRIG 200-500 mg/dL High TRIG greater than 500 mg/dL Very highStandard traceable to the Center for Disease Conrtrol and Prevention (CDC) test method.Urine Cultureon 21-21-3578Ktdfslrp identified Cx Nom (U)15,000 colonies/ml mixed bacterial skin contaminants 2 Days PERFORMED BY: [place] [address] PATHOLOGIST SOCIAL INSURANCE ADVISER LE MACE M.D.NormalThe Critical Access Hospital Physician GroupComment on above: Performed By: #### CMP, MG, PHOS, CBC #### [facility] [address] [place] [address] USAUrine cultureOrdered By: Priscilla Lang on 04-29-2024 Bacteria identified Cx Nom (U)Urine culturePremier Health Upper Valley Medical Center Bacteria identified Cx Nom (U)Urine culturePremier Health Upper Valley Medical Center Alanine aminotransferase [Enzymatic activity/volume] in Serum or PlasmaOrdered By: Wesley Villafuerte on 37-97-4945DHO [Catalytic activity/Vol]Alanine aminotransferase [Enzymatic activity/volume] in Serum or Plasma7-52Prem[facility] Medical CenterAlbumin [Mass/volume] in Serum or Plasma by Bromocresol green (BCG) dye binding methoOrdered By: Wesley Villafuerte on 61-31-0356Uiogavj BCG dye [Mass/Vol]Albumin [Mass/volume] in Serum or Plasma by Bromocresol green (BCG) dye binding metho3.5-5.7FSelect Medical Cleveland Clinic Rehabilitation Hospital, BeachwoodAlkaline phosphatase [Enzymatic activity/volume] in Serum or PlasmaOrdered By: Wesley Villafuerte on 30-43-5236CMX [Catalytic activity/Vol]Alkaline phosphatase [Enzymatic activity/volume] in Serum or Ezudzr73-713IzfxynorsPremier Health Upper Valley Medical Center Anisocytosis LM Ql (Bld)Ordered By: Wesley Villafuerte on 93-16-8217Gdelmzmvmils Ql (Bld)Anisocytosis [Presence] in Blood by Light microscopyPremier Health Upper Valley Medical CenterAppearance of UrineOrdered By: Wesley Villafuerte on 04-28-2024 Appearance (U)Urine appearanceCleMercer County Community HospitalAspartate aminotransferase [Enzymatic activity/volume] in Serum or PlasmaOrdered By: Wesley Villafuerte on 54-33-8026PVN [Catalytic activity/Vol]Aspartate aminotransferase [Enzymatic activity/volume] in Serum or Hduazh46-61SkmzmhubtPremier Health Upper Valley Medical CenterB-Type Natriuretic Peptideon 02-89-6223Isbwskerdyj peptide B (Bld) [Mass/Vol]25.0 pg/mLNormal5-100The [facility] Hospital Physician GroupComment on above: Result Comment: PERFORMED BY: [place] [address] PATHOLOGIST SOCIAL INSURANCE ADVISER LE MACE M.D.Performed By: #### CMP, MG, PHOS, CBC #### [place] [address] USABacteria [Presence] in Urine by AutomatedOrdered By: Wesley Villafuerte on 23-80-6017Vhzaolos Auto Ql (U)Bacteria [Presence] in Urine by AutomatedNone SeenPremier Health Upper Valley Medical CenterBasophils Auto (Bld) [#/Vol] Ordered By: Wesley Villafuerte on 55-68-8555Skcieleom (Bld) [#/Vol]Automated basophil count0.0-0.2FSelect Medical Cleveland Clinic Rehabilitation Hospital, BeachwoodBasophils/100 WBC Auto (Bld)Ordered By: Wesley Villafuerte on 37-99-7981Mdrpxavhj/100 WBC (Bld)Automated basophil %. [facility] CenterBilirubin Test strip Ql (U)Ordered By: Wesley Villafuerte on 79-61-2073Nxucfnhub Ql (U)Bilirubin.total [Presence] in Urine by Test stripNegativePremier Health Upper Valley Medical CenterBilirubin.total [Mass/volume] in Serum or PlasmaOrdered By: Wesley Villafuerte on 38-47-5426Tasbxdygu [Mass/Vol] Bilirubin.total [Mass/volume] in Serum or Plasma0.3-1.0Prem[facility] CenterBioFire Not Detectedon 97-40-5579IkzPnpu Not DetectedNot detected NormalNot DetecteThe Critical Access Hospital Physician GroupComment on above:Result Comment: This is a duplicate RP2.1 COVID (PCR) result to be used for statistical tracking purpose only. PERFORMED BY: [place] [address] PATHOLOGIST SOCIAL INSURANCE ADVISER LE MACE M.D.Performed By: #### CMP, MG, PHOS, CBC #### [place] [address] USACOVID-19 Detected/Not DetectedOrdered By: Wesley Villafuerte on 96-85-5533JSXT-CoV-2 (COVID-19) RNA TEJINDER+non-probe Ql (Nph)Not detectedNot DetectKettering Health MiamisburgComment on above:This is a duplicate RP2.1 COVID (PCR) result to be used for statistical tracking purpose only.CT angio headon 82-45-4896UY angio headSUBURBAN [facility] Main [place] [address] [place] [address] CT Scan Report Signed Patient: Taye Gay MR#: [id number] 19 : 1955 Acct:[id number] Age/Sex: 68 / F ADM Date: 04/28/24 Loc: ER Room: Type: [facility] ER Attending Dr: Copies to: Wesley Villafuerte PA-C Ordering Provider: Wesley Villafuerte PA-C Date of Service: 04/28/24 CT/CT angio head: weakness ([id number]) CT/CT angio neck: weakness ([id number]) CT/CT head/brain wo con: weakness CT head/brain [...] Oz Bowling M.D.04/28/2024 9:44 PM Dictation Location: [place] [address] Transcribed By: AMY 04/28/242143 Dictated By: Oz Bowling II, MD 04/28/242129 Signed By: 04/28/242143NoMission Hospital McDowell Physician GroupCalcium [Mass/volume] in Serum or PlasmaOrdered By: Wesley Villafuerte on 37-08-8077Vsiqykn [Mass/Vol]Calcium [Mass/volume] in Serum or Plasma8.6-10.3FSelect Medical Cleveland Clinic Rehabilitation Hospital, BeachwoodCarbon dioxide, total [Moles/volume] in Serum or PlasmaOrdered By: Wesley Villafuerte on 88-58-6723XT9 [Moles/Vol]Carbon dioxide, total [Moles/volume] in Serum or Plasma 21.0-31.0Prem[facility] Medical CenterChloride [Moles/volume] in Serum or PlasmaOrdered By: Wesley Villafuerte on 45-28-7642Kcnekczd [Moles/Vol]Chloride [Moles/volume] in Serum or Efowhr49-883McullswcpPremier Health Upper Valley Medical CenterColor Auto (U)Ordered By: Wesley Villafuerte on 04-34-5473Stqvc (U)Color of Urine by Auto YellowPremier Health Upper Valley Medical CenterComprehensive Metabolic Panelon 33-67-7154Vdfquso [Mass/Vol]3.7 g/dLNormal3.5-5.7[facility] Comment on above:Performed By: #### CMP, MG, PHOS, CBC #### [facility] [address] [place] [address] USAAlbumin/Globulin [Mass ratio]1.2 {ratio}NormalThe Critical Access Hospital Physician GroupComment on above:Performed By: #### CMP, MG, PHOS, CBC #### [place] [address] USAALP [Catalytic activity/Vol]86 U/TWwdnpk49-763Ykc [facility] Hospital Physician GroupComment on above:Performed By: #### CMP, MG, PHOS, CBC #### [place] [address] USAALT [Catalytic activity/Vol]20 U/LNormal7-52The [facility] Hospital Physician GroupComment on above:Performed By: #### CMP, MG, PHOS, CBC #### [place] [address] USAAnion gap [Moles/Vol]12.7 mmol/LNormal6.0-15.0The [facility] Hospital Physician GroupComment on above:Performed By: #### CMP, MG, PHOS, CBC #### [place] [address] USAAST [Catalytic activity/Vol]25 U/TTuniru76-77Adr [facility] Hospital Physician GroupComment on above:Performed By: #### CMP, MG, PHOS, CBC #### [place] [address] USABilirubin [Mass/Vol]0.3 mg/dLNormal0.3-1.0The [facility] Hospital Physician GroupComment on above:Performed By: #### CMP, MG, PHOS, CBC #### [place] [address] USACalcium [Mass/Vol]9.7 mg/dLNormal8.6-10.3The [facility] Hospital Physician GroupComment on above:Performed By: #### CMP, MG, PHOS, CBC #### [place] [address] USAChloride [Moles/Vol]104 mmol/RCjcfho72-648Dwy [facility] Hospital Physician GroupComment on above:Performed By: #### CMP, MG, PHOS, CBC #### [facility] [address] [place] [address] USACO2 [Moles/Vol]24.2 mmol/CMbesso96.0-31.0The [facility] Hospital Physician GroupComment on above:Performed By: #### CMP, MG, PHOS, CBC #### [facility] [address] [place] [address] USACreatinine [Mass/Vol]0.85 mg/dLNormal0.60-1.20The [facility] Hospital Physician GroupComment on above:Performed By: #### CMP, MG, PHOS, CBC #### [facility] [address] [place] [address] USACreatinine Clr Calc Bcavyeqn24.21NormUniversity Hospitals Elyria Medical Centere Critical Access Hospital Physician GroupComment on above:Performed By: #### CMP, MG, PHOS, CBC #### [place] [address] USAGFR/1.73 sq M.predicted MDRD (S/P/Bld) [Vol rate/Area] mL/min/{1.73_m2}NormalThe Critical Access Hospital Physician GroupComment on above:Performed By: #### CMP, MG, PHOS, CBC #### [place] [address] USAGlobulin (S) [Mass/Vol]3.1 g/dLNormUniversity Hospitals Elyria Medical Centere Critical Access Hospital Physician GroupComment on above:Performed By: #### CMP, MG, PHOS, CBC #### [place] [address] USAGlucose [Mass/Vol]231 mg/wKAung76-528Gzo [facility] Hospital Physician GroupComment on above:Result Comment: Random Glucose Reference Range is dependent on time and content of last meal. Glucose of more than 200 mg/dL in a nonstressed, ambulatory subject supports the diagnosis of Diabetes Mellitus. ADA recommended reference rangePerformed By: #### CMP, MG, PHOS, CBC #### [facility] [address] [place] [address] USAPotassium [Moles/Vol]3.9 mmol/LNormal3.5-5.1The [facility] Hospital Physician GroupComment on above:Result Comment: Hemolysis is present at a level that could interfere with the result. Contact lab if redraw is requiredPerformed By: #### CMP, MG, PHOS, CBC #### [facility] [address] [place] [id number] USAProtein [Mass/Vol]6.8 g/dLNormal6.4-8.9The [facility] Hospital Physician GroupComment on above:Performed By: #### CMP, MG, PHOS, CBC #### [facility] [address] [place] [id number] USASodium [Moles/Vol]137 mmol/BOgynes609-784Bgb [facility] Hospital Physician GroupComment on above:Performed By: #### CMP, MG, PHOS, CBC #### [facility] [address] [place] [address] USAUrea nitrogen [Mass/Vol]11 mg/dLNormal7-25The [facility] Hospital Physician GroupComment on above:Performed By: #### CMP, MG, PHOS, CBC #### [facility] [address] [place] [id number] USACreatinine [Mass/volume] in Serum or PlasmaOrdered By: Wesley Villafuerte on 20-60-9461Xdiyugfugw [Mass/Vol]Creatinine [Mass/volume] in Serum or Plasma0.60-1.20Prem[facility] Medical CenterDipstick and Microscopicon 79-38-8788Siukddxsid (U)ClearNormalClearThe Critical Access Hospital Physician GroupComment on above:Order Comment: Name Collection Type:: Clean-Voided MidstreamPerformed By: #### ADDONUAPLUS #### [facility] [address] [place] [id number] USABacteria,UrineRareNormalNone SeenThe Critical Access Hospital Physician GroupComment on above:Order Comment: Name Collection Type:: Clean-Voided MidstreamPerformed By: #### ADDONUAPLUS #### [facility] [address] [place] [id number] USABilirubin,UrineNegativeNormalNegativeThe Critical Access Hospital Physician GroupComment on above:Order Comment: Name Collection Type:: Clean- Voided MidstreamPerformed By: #### ADDONUAPLUS #### [place] [address] USABudding Yeast,UrineRareHighNone SeenThe [facility] Access Hospital Physician GroupComment on above:Order Comment: Name Collection Type:: Clean- Voided MidstreamResult Comment: PERFORMED BY: [place] [address] PATHOLOGIST SOCIAL INSURANCE ADVISER LE MACE M.D.Performed By: #### ADDONUAPLUS #### [place] [address] USAColor (U)Light-YellowNormalYellowThe Critical Access Hospital Physician GroupComment on above:Order Comment: Name Collection Type:: Clean-Voided MidstreamPerformed By: #### ADDONUAPLUS #### [place] [address] USAGlucose Ql (U)>=HighNormalThLost [facility] Physician Group Comment on above:Order Comment: Name Collection Type:: Clean-Voided Midstream Performed By: #### ADDONUAPLUS #### [place] [address] USAHyaline Casts,Urine0 [LPF]Normal0-8The [facility] Hospital Physician GroupComment on above:Order Comment: Name Collection Type:: Clean-Voided MidstreamPerformed By: #### ADDONUAPLUS #### [place] [address] USAKetones Ql (U)NegativeNormalNegativeOrlando Va Medical Center Physician GroupComment on above:Order Comment: Name Collection Type:: Clean- Voided MidstreamPerformed By: #### ADDONUAPLUS #### [place] [address] USALeukocyte esterase Test strip Ql (U)NegativeNormalNegative [facility] Physician GroupComment on above:Order Comment: Name Collection Type:: Clean-Voided MidstreamPerformed By: #### ADDONUAPLUS #### [place] [address] USANitrite,UrineNegativeNormalNegativeThe [facility] Access Hospital Physician GroupComment on above:Order Comment: Name Collection Type:: Clean-Voided MidstreamPerformed By: #### ADDONUAPLUS #### [place] [address] USAOccult Blood,Urine2+HighNegativeThe [facility] Hospital Physician GroupComment on above:Order Comment: Name Collection Type:: Clean-Voided MidstreamResult Comment: PERFORMED BY: [place] [address] PATHOLOGIST SOCIAL INSURANCE ADVISER LE MACE M.D.Performed By: #### ADDONUAPLUS #### [place] [address] USApH (U)5.5 [pH]Normal5.0-9.0[facility] Comment on above:Order Comment: Name Collection Type:: Clean-Voided Midstream Performed By: #### ADDONUAPLUS #### [place] [address] USAProtein,UrineNegativeNormalNegativeThe [facility] Hospital Physician GroupComment on above:Order Comment: Name Collection Type:: Clean-Voided MidstreamPerformed By: #### ADDONUAPLUS #### [place] [address] USARBC,Urine10 [HPF]High0-4The [facility] Comment on above:Order Comment: Name Collection Type:: Clean-Voided Midstream Performed By: #### ADDONUAPLUS #### [place] [address] USASpecificy Weed,Urine1.775Bbyg9.001-1.030The [facility] Hospital Physician GroupComment on above:Order Comment: Name Collection Type:: Clean- Voided MidstreamPerformed By: #### ADDONUAPLUS #### [place] [address] USASquamous Epithelial Cell,Urine3 [HPF]High0-2The [facility] Hospital Physician GroupComment on above:Order Comment: Name Collection Type:: Clean- Voided MidstreamPerformed By: #### ADDONUAPLUS #### [facility] [address] [place] [id number] USAUrobilinogen,UrineNormalNormalNormAdventHealth North Pinellas Physician GroupComment on above:Order Comment: Name Collection Type:: Clean- Voided MidstreamPerformed By: #### ADDONUAPLUS #### [facility] [address] [place] [address] USAWBC,Urine5 [HPF]High0-4[facility] Comment on above:Order Comment: Name Collection Type:: Clean-Voided Midstream Performed By: #### ADDONUAPLUS #### [facility] [address] [place] [address] USAECG 12 lead ECGon 26-81-0897TTB 12 lead ECGSUBURBAN [facility] Main [place] [address] [place] [address] Electrocardiograph Report Signed Patient: Taye Gay MR#: [id number] [birth year] : 1955 Acct:[id number] Age/Sex: 68 / F ADM Date: 04/28/24 Loc: Room: [address] [place] [address] Type: ADM IN Attending Dr: Jori Hearn [...] MUS Signed By Jori Batista MD 05/23 0144[facility] Physician GroupEosinophils Auto (Bld) [#/Vol] Ordered By: Wesley Villafuerte on 16-18-3568Vmcmsmphwip (Bld) [#/Vol]Automated eosinophil count0.0-0.45[facility] Medical CenterEosinophils/100 WBC Auto (Bld)Ordered By: Wesley Villafuerte on 88-27-2098Rfueaoygblw/100 WBC (Bld) Automated eosinophil %.[facility] Medical CenterEpithelial cells.squamous [#/area] in Urine sediment by Automated countOrdered By: Wesley Villafuerte on 95-75-0823Pfhmjqqupz cells.squamous Auto (Urine sed) [#/Area]Epithelial cells.squamous [#/area] in Urine sediment by Automated countHigh0-2FSelect Medical Cleveland Clinic Rehabilitation Hospital, BeachwoodErythrocyte distribution width Auto (RBC) [Ratio]Ordered By: Wesley Villafuerte on 43-25-3830Uouxktwpsfp distribution width (RBC) [Ratio] Erythrocyte distribution width [Ratio] by Automated vyiizXbks94.9-15.3FSelect Medical Cleveland Clinic Rehabilitation Hospital, BeachwoodErythrocyte morphology finding [Identifier] in Blood Ordered By: Wesley Villafuerte on 08-72-3997OPK morphology finding Nom (Bld)RBC morphologyPremier Health Upper Valley Medical CenterErythrocytes [#/area] in Urine sediment by Automated countOrdered By: Wesley Villafuerte on 07-29-3677NHS Auto (Urine sed) [#/Area]Erythrocytes [#/area] in Urine sediment by Automated countHigh0-4 [facility] Medical CenterGlobulin Calc (S) [Mass/Vol]Ordered By: Wesley Villafuerte on 58-98-5966Kesnxubi (S) [Mass/Vol]Serum globulin measurement by calculation (mass/volume)[facility] CenterGlucose [Mass/volume] in Serum or PlasmaOrdered By: Wesley Villafuerte on 30-09-7133Ftoyflx [Mass/Vol] Glucose [Mass/volume] in Serum or EjnjieZjcr52-573XslbujuecPremier Health Upper Valley Medical CenterComment on above:ADA recommended reference rangeRandom Glucose Reference Range is dependent on time and content of last meal. Glucose of more than 200 mg/dL in a nonstressed, ambulatory subject supports the diagnosisof Diabetes Mellitus.Glucose [Mass/volume] in Urine by Test stripOrdered By: Wesley Villafuerte on 23-89-7587Wezwdes Test strip (U) [Mass/Vol]Glucose [Mass/volume] in Urine by Test stripHighNormalPremier Health Upper Valley Medical CenterHbA1c HPLC (Bld) [Mass fraction]on 48-95-0405HjQ7x (Bld) [Mass fraction]Hemoglobin A1c/Hemoglobin.total in Blood by HPLCPremier Health Upper Valley Medical CenterHematocrit Auto (Bld) [Volume fraction]Ordered By: Wesley Villafuerte on 01-18-9816Zrbofoluvo (Bld) [Volume fraction]Hematocrit [Volume Fraction] of Blood by Automated uzcutJjpe17.0-46.4 [facility] CenterHemoglobin Test strip Ql (U)Ordered By: Wesley Villafuerte on 07-56-4406Gghmbpedyv Ql (U)Hemoglobin [Presence] in Urine by Test strip HighNegativePremier Health Upper Valley Medical CenterHemoglobin [Mass/volume] in Blood Ordered By: Wesley Villafuerte on 38-51-5995Tpnapniihk (Bld) [Mass/Vol]Hemoglobin [Mass/volume] in ZxmypKpfx54.8-15.4FSelect Medical Cleveland Clinic Rehabilitation Hospital, BeachwoodHyaline casts [#/area] in Urine sediment by Automated countOrdered By: Wesley Villafuerte on 7111Yqbnmlv casts Auto (Urine sed) [#/Area]Hyaline casts [#/area] in Urine sediment by Automated count0-8Prem[facility] Medical CenterINR in Platelet poor plasma by Coagulation assayOrdered By: Wesley Villafuerte on 60-28-9295UEK Coag (PPP) [Relative time]INR in Platelet poor plasma by Coagulation assayPremier Health Upper Valley Medical CenterComment on above:INR Therapeutic Range A) [...] strip Ql (U)Ordered By: Wesley Villafuerte on 25-28-7640Fkrdypr Ql (U)Ketones [Presence] in Urine by Test stripNegativePremier Health Upper Valley Medical CenterLeukocyte esterase [Presence] in Urine by Test stripOrdered By: Wesley Villafuerte on 17-32-1242Ndwvjhueq esterase Test strip Ql (U)Leukocyte esterase [Presence] in Urine by Test stripNegative [facility] CenterLeukocytes [#/area] in Urine sediment by Automated countOrdered By: Wesley Villafuerte on 02-28-2259HOK Auto (Urine sed) [#/Area]Leukocytes [#/area] in Urine sediment by Automated countHigh0-4FSelect Medical Cleveland Clinic Rehabilitation Hospital, BeachwoodLeukocytes [#/volume] corrected for nucleated erythrocytes in Blood by Automated counOrdered By: Wesley Villafuerte on 09-37-5905ZYJ corrected for nucl RBC Auto (Bld) [#/Vol]Leukocytes [#/volume] corrected for nucleated erythrocytes in Blood by Automated coun3.8-11.6FSelect Medical Cleveland Clinic Rehabilitation Hospital, BeachwoodLymphocytes Auto (Bld) [#/Vol]Ordered By: Wesley Villafuerte on 52-27-2673Ywsxddbqidi (Bld) [#/Vol]Lymphocytes [#/volume] in Blood by Automated count1.00-4.8[facility] Medical CenterLymphocytes/100 WBC Auto (Bld) Ordered By: Wesley Villafuerte on 56-17-1326Hyqutbvcwcx/100 WBC (Bld)Lymphocytes/100 leukocytes in Blood by Automated count.[facility] CenterH Auto (RBC) [Entitic mass]Ordered By: Wesley Villafuerte on 81-26-0644TNZ (RBC) [Entitic mass]MCH [Entitic mass] by Automated count24.7-34.3FCleveland Clinic Mentor HospitalHC Auto (RBC) [Mass/Vol]Ordered By: Wesley Villafuerte on 32-54-3696WEKY (RBC) [Mass/Vol]MCHC [Mass/volume] by Automated count32.0-35.0[facility] CenterMCV Auto (RBC) [Entitic vol]Ordered By: Wesley Villafuerte on 04-28-2024 MCV (RBC) [Entitic vol]MCV [Entitic volume] by Automated rsfea75-457AtrfldongPremier Health Upper Valley Medical CenterMagnesiumon 70-08-2890Hgftbmqde [Mass/Vol]1.7 mg/dLLow 1.9-2.7The [facility] Hospital Physician GroupComment on above:Result Comment: PERFORMED BY: [facility] [address] [place] [address] PATHOLOGIST SOCIAL INSURANCE ADVISER LE MACE M.D.Performed By: #### CMP, MG, PHOS, CBC #### [facility] [address] [place] [address] USAMagnesium [Mass/volume] in Serum or PlasmaOrdered By: Wesley Villafuerte on 41-43-9161Latebcxlq [Mass/Vol]Magnesium [Mass/volume] in Serum or PlasmaLow1.9-2.7FSelect Medical Cleveland Clinic Rehabilitation Hospital, BeachwoodMonocyte distribution width [Entitic volume] in Blood by AutomatedOrdered By: Wesley Villafuerte on 04-28-2024 Monocyte distribution width Auto (Bld) [Entitic vol]Monocyte distribution width [Entitic volume] in Blood by AutomatedHigh0.00-20.00[facility] Medical CenterComment on above:For adults in ED, MDW > 20.0 may be associated with a higher risk of sepsis during the first 12 hrs of hospital admissionMonocytes Auto (Bld) [#/Vol]Ordered By: Wesley Villafuerte on 12-24-0619Xsjogvanc (Bld) [#/Vol] Automated blood monocyte count0.0-0.8[facility] Monocytes/100 WBC Auto (Bld)Ordered By: Wesley Villafuerte on 04-03-2277Rlkhqwhry/100 WBC (Bld)Automated monocyte %.[facility] Medical CenterNatriuretic peptide B [Mass/Vol]Ordered By: Wesley Villafuerte on 75-20-7125Dzbkohwaggj peptide B (Bld) [Mass/Vol]BNP ser/plas5-100Prem[facility] Medical CenterNeutrophils Auto (Bld) [#/Vol]Ordered By: Wesley Villafuerte on 49-88-0395Knbwtooklkx (Bld) [#/Vol]Neutrophils [#/volume] in Blood by Automated count1.8-7.7FSelect Medical Cleveland Clinic Rehabilitation Hospital, BeachwoodNeutrophils/100 WBC Auto (Bld)Ordered By: Wesley Villafuerte on 90-45-6856Lrgodgpcker/100 WBC (Bld)Automated neutrophil %.[facility] Medical CenterNitrite Test strip Ql (U)Ordered By: Wesley Villafuerte on 04-28-2024 Nitrite Ql (U)Nitrite [Presence] in Urine by Test stripNegativePremier Health Upper Valley Medical CenterNo Panel InformationOrdered By: Wesley Villafuerte on 84-96-9386Klddcdrsj GFR (CKD-EPI)> 60.0 mL/MinPremier Health Upper Valley Medical Center Pharmacy Creatinine Clearance (Chem77.21[facility] CenterNo Panel Informationon 02-04-6585Ymuiwvo Egqpcta906LwziwbduaPremier Health Upper Valley Medical CenterNucleated erythrocytes [Presence] in Blood by Automated countOrdered By: Wesley Villafuerte on 55-11-6237Sxategbqa RBC Auto Ql (Bld)Nucleated erythrocytes [Presence] in Blood by Automated count0-0.5FSelect Medical Cleveland Clinic Rehabilitation Hospital, Beachwood Partial Thromboplastin Timeon 12-79-6453eQBV Coag (Bld) [Time]30.0 sNormal 25.1-36.5The [facility] Hospital Physician GroupComment on above:Result Comment: A hematocrit value greater than 55% may lead to inaccurate results in coagulation testing. Patients having hematocrit values >55% require a special collection tube for coagulation studies. Please contact the laboratory at [phone] for redraw instructions. PERFORMED BY: [facility] [address] [place] [address] PATHOLOGIST SOCIAL INSURANCE ADVISER LE MACE M.D.Performed By: #### CMP, MG, PHOS, CBC #### [facility] [address] [place] [address] USAPlatelet adequacy [Presence] in Blood by Light microscopy Ordered By: Wesley Villafuerte on 34-55-3156Mbtaqorbl LM Ql (Bld)Platelet adequacy [Presence] in Blood by Light microscopyNoKettering Health Springfield Platelet mean volume Auto (Bld) [Entitic vol]Ordered By: Wesley Villafuerte on 64-68-0292Ovuozvsr mean volume (Bld) [Entitic vol]Platelet mean volume [Entitic volume] in Blood by Automated count6.3-10.7FSelect Medical Cleveland Clinic Rehabilitation Hospital, Beachwood Platelet morphology finding [Identifier] in BloodOrdered By: Wesley Villafuerte on 03-77-0341Rjidnuer morphology finding Nom (Bld)Platelet morphology finding [Identifier] in BloodNoKettering Health SpringfieldPlatelets Auto (Bld) [#/Vol]Ordered By: Wesley Villafuerte on 94-49-3490Imsssptaw (Bld) [#/Vol]Platelets [#/volume] in Blood by Automated obzscFaj493-583OzdyvyqatPremier Health Upper Valley Medical CenterPolychromasia [Presence] in Blood by Light microscopyOrdered By: Wesley Villafuerte on 71-18-3998Tdtgxsjhcqqak LM Ql (Bld)Polychromasia [Presence] in Blood by Light microscopyPremier Health Upper Valley Medical CenterPotassium [Moles/volume] in Serum or PlasmaOrdered By: Wesley Villafuerte on 33-09-5814Vmlfpfpvk [Moles/Vol] Potassium [Moles/volume] in Serum or Plasma3.5-5.1FSelect Medical Cleveland Clinic Rehabilitation Hospital, BeachwoodComment on above:Hemolysis is present at a level that could interfere with the result.Contact lab if redraw is requiredProtein Test strip (U) [Mass/Vol] Ordered By: Wesley Villafuerte on 17-00-4174Twauypr (U) [Mass/Vol]Protein [Mass/volume] in Urine by Test stripNegativePremier Health Upper Valley Medical Center Protein [Mass/volume] in Serum or PlasmaOrdered By: Wesley Villafuerte on 04-28-2024 Protein [Mass/Vol]Protein [Mass/volume] in Serum or Plasma6.4-8.9Prem[facility] Medical CenterProthrombin Time INRon 62-41-2265YOV Coag (PPP) [Relative time]1.3 {INR}NormalThe Critical Access Hospital Physician GroupComment on above:Result Comment: INR Therapeutic [...] By: #### CMP, MG, PHOS, CBC #### [facility] [address] [place] [address] USAPT Coag (PPP) [Time]15.1 sHigh9.0-12.9The [facility] Access Hospital Physician GroupComment on above:Result Comment: A hematocrit value greater than 55% may lead to inaccurate results in coagulation testing. Patients having hematocrit values >55% require a special collection tube for coagulation studies. Please contact the laboratory at [phone] for redraw instructions.Performed By: #### CMP, MG, PHOS, CBC #### [facility] [address] [place] [address] USAProthrombin time (PT)Ordered By: Wesley Villafuerte on 89-48-4574AU Coag (PPP) [Time]Prothrombin time (PT)High9.0-12.9Prem[facility] Medical CenterComment on above:A hematocrit value greater than 55% may lead to inaccurate results in coagulation testing. Patientshaving hematocrit values >55% require a special collection tube for coagulation studies. Please c ontact the laboratory at [phone] for redraw instructions.RBC Auto (Bld) [#/Vol]Ordered By: Wesley Villafuerte on 41-97-2693IFM (Bld) [#/Vol]Erythrocytes [#/volume] in Blood by Automated countHigh3.60-5.00[facility] Medical CenterRespiratory (Upper) Panel, PCRon 06-92-4468Dowkpmmjcsg (Upper) Panel, PCR Adenovirus Not detected Bordetella [...] Influenza A H3 Blank Space PERFORMED BY: [place] [address] PATHOLOGIST SOCIAL INSURANCE ADVISER LE MACE M.D.NormalThe Critical Access Hospital Physician GroupComment on above: Performed By: #### CMP, MG, PHOS, CBC #### [place] [address] USARespiratory pathogens DNA and RNA panel - Nasopharynx by TEJINDER with non-probe detectionOrdered By: Wesley Villafuerte on 37-52-9111Uofncrspdcw pathogens DNA and RNA panel TEJINDER+non-probe (Nph)Respiratory pathogens DNA and RNA panel - Nasopharynx by TEJINDER with non-probe detectionPremier Health Upper Valley Medical CenterRespiratory pathogens DNA and RNA panel TEJINDER+non-probe (Nph)Respiratory pathogens DNA and RNA panel - Nasopharynx by TEJINDER with non-probe detection [facility] Hospitalcan and CBCon 85-84-4618Tqsbvfjolfxt Ql (Bld) SlightNormalThe Critical Access Hospital Physician GroupComment on above:Performed By: #### CMP, MG, PHOS, CBC #### [facility] [address] [place] [address] USABasophils (Bld) [#/Vol]0.1 10*3/uLNormal0.0-0.2The [facility] Hospital Physician GroupComment on above:Performed By: #### CMP, MG, PHOS, CBC #### [place] [address] USABasophils/100 WBC (Bld)1.1 %Normal.The [facility] Access Hospital Physician GroupComment on above:Performed By: #### CMP, MG, PHOS, CBC #### [facility] [address] [place] [address] USAEosinophils (Bld) [#/Vol]0.3 10*3/uLNormal0.0-0.45The [facility] Hospital Physician GroupComment on above:Performed By: #### CMP, MG, PHOS, CBC #### [place] [address] USAEosinophils/100 WBC (Bld)2.7 %Normal.The [facility] Access Hospital Physician GroupComment on above:Performed By: #### CMP, MG, PHOS, CBC #### [place] [address] USAErythrocyte distribution width (RBC) [Ratio]15.4 %High 11.9-15.3The [facility] Access Hospital Physician GroupComment on above:Performed By: #### CMP, MG, PHOS, CBC #### [place] [address] USAHematocrit (Bld) [Volume fraction]48.1 %High34.0-46.4The [facility] Access Hospital Physician GroupComment on above:Performed By: #### CMP, MG, PHOS, CBC #### [place] [address] USAHemoglobin (Bld) [Mass/Vol]16.0 g/gENjnq97.8-15.4The [facility] Access Hospital Physician GroupComment on above:Performed By: #### CMP, MG, PHOS, CBC #### [place] [address] USALymphocytes (Bld) [#/Vol]2.5 10*3/uLNormal1.00-4.8The [facility] Access Hospital Physician GroupComment on above:Performed By: #### CMP, MG, PHOS, CBC #### [place] [address] USALymphocytes/100 WBC (Bld)24.6 %Normal.The [facility] Access Hospital Physician GroupComment on above:Performed By: #### CMP, MG, PHOS, CBC #### [place] [address] USAMCH (RBC) [Entitic mass]31.7 alQdmbxp23.7-34.3The Critical Access Hospital Physician GroupComment on above:Performed By: #### CMP, MG, PHOS, CBC #### [place] [address] USAMCV (RBC) [Entitic vol]95.1 dUAfqubj40-228Yoh Critical Access Hospital Physician GroupComment on above:Performed By: #### CMP, MG, PHOS, CBC #### [facility] [address] [place] [address] USAMean Corpuscular HGB Conc33.3 g/uIEuzzjf81.0-35.0The Critical Access Hospital Physician GroupComment on above:Performed By: #### CMP, MG, PHOS, CBC #### [facility] [address] [place] [address] USAMonocytes (Bld) [#/Vol]0.8 10*3/uLNormal0.0-0.8The Critical Access Hospital Physician GroupComment on above:Performed By: #### CMP, MG, PHOS, CBC #### [place] [address] USAMonocytes/100 WBC (Bld)20.25 %High0.00-20.00The Critical Access Hospital Physician GroupComment on above:Result Comment: For adults in ED, MDW > 20.0 may be associated with a higher risk of sepsis during the first 12 hrs of hospital admissionPerformed By: #### CMP, MG, PHOS, CBC #### [facility] [address] [place] [address] USAMonocytes/100 WBC (Bld)7.6 %Normal.The Critical Access Hospital Physician GroupComment on above:Performed By: #### CMP, MG, PHOS, CBC #### [facility] [address] [place] [address] USANeutrophils (Bld) [#/Vol]6.5 10*3/uLNormal1.8-7.7The Critical Access Hospital Physician GroupComment on above:Performed By: #### CMP, MG, PHOS, CBC #### [facility] [address] [place] [address] USANeutrophils/100 WBC (Bld)64.0 %Normal.The Critical Access Hospital Physician GroupComment on above:Performed By: #### CMP, MG, PHOS, CBC #### [facility] [address] [place] [address] USANRBC%0.2 /100{WBC}Normal0-0.5The [facility] Comment on above:Performed By: #### CMP, MG, PHOS, CBC #### [place] [address] USAPlatelet EstimateDecreasedNormalAscension Sacred Heart Bay Physician [facility]alobusha General HospitalComment on above:Performed By: #### CMP, MG, PHOS, CBC #### [place] [address] USAPlatelet mean volume (Bld) [Entitic vol]9.9 fLNormal 6.3-10.7The Critical Access Hospital Physician GroupComment on above:Performed By: #### CMP, MG, PHOS, CBC #### [place] [address] USAPlatelet MorphologyNormalNormalAscension Sacred Heart Bay Physician GroupComment on above:Result Comment: PERFORMED BY: [place] [address] PATHOLOGIST SOCIAL INSURANCE ADVISER LE MACE M.D.Performed By: #### CMP, MG, PHOS, CBC #### [place] [address] USAPlatelets (Bld) [#/Vol]136 10*3/dMWht399-893Uml Critical Access Hospital Physician GroupComment on above:Performed By: #### CMP, MG, PHOS, CBC #### [place] [address] USAPolychromasiaSlightAscension Sacred Heart Bay Physician [facility] Comment on above:Performed By: #### CMP, MG, PHOS, CBC #### [place] [address] USARBC (Bld) [#/Vol]5.06 10*6/uLHigh3.60-5.00The Critical Access Hospital Physician GroupComment on above:Performed By: #### CMP, MG, PHOS, CBC #### [place] [address] USAWBC (Bld) [#/Vol]10.2 10*3/uLNormal3.8-11.6The Critical Access Hospital Physician GroupComment on above:Performed By: #### CMP, MG, PHOS, CBC #### [facility] [address] [place] [address] USAWBC (Bld) [#/Vol]10.9 10*3/uLNormal3.8-11.6The Critical Access Hospital Physician GroupComment on above:Performed By: #### CMP, MG, PHOS, CBC #### [facility] [address] [place] [address] USASerum or plasma albumin/globulin mass ratioOrdered By: Wesley Villafuerte on 47-30-8016Caywgkr/Globulin [Mass ratio]Serum or plasma albumin/globulin mass ratioPomerene Hospitalerum or plasma anion gap determinationOrdered By: Wesley Villafuerte on 77-03-2566Cxdzi gap [Moles/Vol]Serum or plasma anion gap determination6.0-15.0Pomerene Hospitalodium [Moles/volume] in Serum or PlasmaOrdered By: Wesley Villafuerte on 51-91-9713Suvghx [Moles/Vol]Sodium [Moles/volume] in Serum or Eftitu679-926 Pomerene Hospitalpecific gravity Test strip (U) [Rel density] Ordered By: Wesley Villafuerte on 48-65-0602Rdeqhusm gravity (U) [Rel density]Specific gravity of Urine by Test stripHigh1.001-1.030[facility] Troponin I High Sensitivityon 36-55-7120Bvbjmprq I High Sensitivity5.1 pg/mL Normal0.0-15.0The Critical Access Hospital Physician GroupComment on above:Result Comment: PERFORMED BY: [address] [address] PATHOLOGIST SOCIAL INSURANCE ADVISER LE MACE M.D.Performed By: #### CMP, MG, PHOS, CBC #### [facility] [address] [place] [address] USATroponin I.cardiac [Mass/volume] in Serum or Plasma by Detection limit <= 0.01 ng/Ordered By: Wesley Villafuerte on 84-87-2001Gmdgkqml I.cardiac DL <= 0.01 ng/mL [Mass/Vol]Troponin I.cardiac [Mass/volume] in Serum or Plasma by Detection limit <= 0.01 ng/0.0-15.0[facility] Medical CenterUrea nitrogen [Mass/volume] in Serum or PlasmaOrdered By: Wesley Villafuerte on 02-48-4629Fjwo nitrogen [Mass/Vol]Urea nitrogen [Mass/volume] in Serum or Plasma 7-25[facility] Medical CenterUrobilinogen Test strip (U) [Mass/Vol] Ordered By: Wesley Villafuerte on 04-61-7669Furwrfdoheci (U) [Mass/Vol]Urobilinogen [Mass/volume] in Urine by Test stripNormalPremier Health Upper Valley Medical CenterWBC Auto (Bld) [#/Vol]Ordered By: Wesley Villafuerte on 08-87-1645NAE (Bld) [#/Vol] Leukocytes [#/volume] in Blood by Automated count3.8-11.6FSelect Medical Cleveland Clinic Rehabilitation Hospital, BeachwoodX-ray reportOrdered By: Oz Bowling on 43-58-9418Rdpey report [facility] [place] [address] XRay Report Signed Patient: Taye Gay MR#: [id number] : 1955 Acct:[id number] Age/Sex: 68 / F ADM Date: 4 Loc: ER Room: Type: [facility] ER Attending Dr: Copies to: Wesley [...] MD 04/28/242143 Signed By: 04/28/242145 [facility] Work Phone: XR chest 2V*on 72-90-5125MU chest 2V*[facility] [place] [address] [place] [address] XRay Report Signed Patient: Taye Gay MR#: [id number] 19 : 1955 Acct:[id number] Age/Sex: 68 / F ADM Date: 04/28/24 Loc: ER Room: Type: [facility] ER Attending Dr: Copies to: Wesley [...] Bowling II, MD 04/28/242143 Signed By: 04/28/24 2146[facility] Physician GroupYeast.budding [Presence] in Urine by Computer assisted methodOrdered By: Wesley Villafuerte on 04-28-2024 Yeast.budding Computer assisted Ql (U)Yeast.budding [Presence] in Urine by Computer assisted methodVeterans Health AdministrationaPTT in Platelet poor plasma by Coagulation assayOrdered By: Wesley Villafuerte on 04-28-2024 aPTT Coag (PPP) [Time]Activated partial thromboplastin time (aPTT) in platelet poor plasma by coagulation a25.1-36.5FSelect Medical Cleveland Clinic Rehabilitation Hospital, BeachwoodComment on above:A hematocrit value greater than 55% may lead to inaccurate results in coagulation testing. Patientshaving hematocrit values >55% require a special collection tube for coagulation studies. Please contact the laboratory at [phone] for redraw instructions.pH Test strip (U)Ordered By: Wesley Villafuerte on 38-03-2404gG (U)pH of Urine by Test strip5.0-9.0[facility] Medical CenterECG 12 lead ECGon 01-21-1690GNI 12 lead ECGSUBURBAN [facility] [place] [address] Electrocardiograph Report Signed Patient: Taye Gay MR#: [id number] : 1955 Acct:[id number] Age/Sex: 68 / F ADM Date: 04/27/24 Loc: ER Room: Type: [facility] ER Attending Dr: Ordering Provider: Rl Villavicencio [...] By: MUS Signed By Rl Villavicencio DO 0219[facility] Physician GroupAlanine aminotransferase [Enzymatic activity/volume] in Serum or PlasmaOrdered By: Nataliya Jane on 17-29-2284MYG [Catalytic activity/Vol]Alanine aminotransferase [Enzymatic activity/volume] in Serum or Plasma7-52[facility] CenterAlbumin [Mass/volume] in Serum or Plasma by Bromocresol green (BCG) dye binding methoOrdered By: Nataliya Jane on 02-66-3022Lxwznvl BCG dye [Mass/Vol]Albumin [Mass/volume] in Serum or Plasma by Bromocresol green (BCG) dye binding metho3.5-5.7FSelect Medical Cleveland Clinic Rehabilitation Hospital, BeachwoodAlkaline phosphatase [Enzymatic activity/volume] in Serum or PlasmaOrdered By: Nataliya Jane on 36-53-7932PWJ [Catalytic activity/Vol] Alkaline phosphatase [Enzymatic activity/volume] in Serum or Kscxtz29-084 [facility] CenterAspartate aminotransferase [Enzymatic activity/volume] in Serum or PlasmaOrdered By: Nataliya Jane on 30-67-3325XQS [Catalytic activity/Vol]Aspartate aminotransferase [Enzymatic activity/volume] in Serum or Lmsgvk07-99CkqpxmvydPremier Health Upper Valley Medical CenterBilirubin.total [Mass/volume] in Serum or PlasmaOrdered By: Nataliya Jane on 04-86-6963Dsbqujetw [Mass/Vol]Bilirubin.total [Mass/volume] in Serum or Plasma0.3-1.0[facility] CenterCBC W Auto Differential panel (Bld)on 57-42-6576Astumpvjv (Bld) [#/Vol]0.1 10*3/uL0.0 - 0.2 10*3/uLNOMS HealthcareBasophils/100 WBC Manual cnt (Syn fld)0.6 %.NOMS HealthcareEosinophils (Bld) [#/Vol]0.3 10*3/uL0.0 - 0.45 10*3/uLNOMS HealthcareEosinophils/100 WBC Manual cnt (Syn fld)2.6 %.NOMS HealthcareErythrocyte distribution width (RBC) [Ratio]15 %11.9 - 15.3 %NOMS HealthcareHematocrit (Bld) [Volume fraction]49.7 %High34.0 - 46.4 %[facility] Medical CenterHemoglobin (Bld) [Mass/Vol]16.6 g/fERtof26.8 - 15.4 g/dLCameron Regional Medical CenterInterpretation and review of laboratory resultsAbnormRoxbury Treatment Center Lymphocytes (Bld) [#/Vol]2.1 10*3/uL1.00 - 4.8 10*3/uLNOUT Healthcare Lymphocytes/100 WBC Manual cnt (Syn fld)19.3 %.[facility] HospitalH (RBC) [Entitic mass]31.2 pg24.7 - 34.3 pgOzarks Community HospitalHC (RBC) [Mass/Vol]33.4 g/dL32.0 - 35.0 g/dLOzarks Community HospitalV (RBC) [Entitic vol]93.4 fL80 - 100 fLCameron Regional Medical Center Monocytes (Bld) [#/Vol]0.9 10*3/uLHigh0.0 - 0.8 10*3/uLNOCitizens Memorial Healthcare Monocytes+Macrophages/100 WBC Manual cnt (Syn fld)8.7 %.[facility] Neutrophils (Bld) [#/Vol]7.3 10*3/uL1.8 - 7.7 10*3/uLNOUT Healthcare Neutrophils/100 WBC Manual cnt (Syn fld)68.8 %.[facility] Medical CenterNRBC0.1 /100{WBC}0 - 0.5 /100{WBC}[facility] Medical CenterPlatelet mean volume (Bld) [Entitic vol]8.9 fL6.3 - 10.7 fLCameron Regional Medical CenterPlatelets (Bld) [#/Vol]167 10*3/uL150 - 450 10*3/uLNOMS Van Wert County HospitalRBC LM.HPF (Urine sed) [#/Area]5.32 10*6/uLHigh3.60 - 5.00 10*6/uLNOMS HealthcareWBC (Bld) [#/Vol]10.7 10*3/uL3.8 - 11.6 10*3/uLNOMS HealthcareWBC LM.HPF (Urine sed) [#/Area]10.7 10*3/uL3.8 - 11.6 10*3/uLNOMS [facility] HealthcareCalcium [Mass/volume] in Serum or PlasmaOrdered By: Nataliya Jane on 09-03-7120Emdtjkl [Mass/Vol]Calcium [Mass/volume] in Serum or Plasma8.6-10.3 [facility] CenterCarbon dioxide, total [Moles/volume] in Serum or PlasmaOrdered By: Nataliya Jane on 73-72-9812ZF8 [Moles/Vol]Carbon dioxide, total [Moles/volume] in Serum or Sbasfi55.0-31.0[facility] CenterChloride [Moles/volume] in Serum or PlasmaOrdered By: Nataliya Jane on 10-33-4488Wnbipqnk [Moles/Vol]Chloride [Moles/volume] in Serum or Fjkutp09-442 [facility] CenterComplete Blood Count Auto Diffon 04-14-2024 Basophils (Bld) [#/Vol]0.1 10*3/uLNormal0.0-0.2The [facility] Comment on above:Result Comment: PERFORMED BY: [facility] [address] [place] [address] PATHOLOGIST SOCIAL INSURANCE ADVISER LE MACE M.D.Performed By: #### CMP, LDH, PATH SLIDE REV, CBC #### [facility] [address] [place] [address] USABasophils/100 WBC (Bld)0.6 %Normal.The Critical Access Hospital Physician GroupComment on above:Performed By: #### CMP, LDH, PATH SLIDE REV, CBC #### [facility] [address] [place] [address] USAEosinophils (Bld) [#/Vol]0.3 10*3/uLNormal0.0-0.45The Critical Access Hospital Physician GroupComment on above:Performed By: #### CMP, LDH, PATH SLIDE REV, CBC #### [facility] [address] [place] [address] USAEosinophils/100 WBC (Bld)2.6 %Normal.The Critical Access Hospital Physician GroupComment on above:Performed By: #### CMP, LDH, PATH SLIDE REV, CBC #### [facility] [address] [place] [address] USAErythrocyte distribution width (RBC) [Ratio]15.0 %Normal 11.9-15.3The Critical Access Hospital Physician GroupComment on above:Performed By: #### CMP, LDH, PATH SLIDE REV, CBC #### [place] [address] USAHematocrit (Bld) [Volume fraction]49.7 %High34.0-46.4The Critical Access Hospital Physician GroupComment on above:Performed By: #### CMP, LDH, PATH SLIDE REV, CBC #### [place] [address] USAHemoglobin (Bld) [Mass/Vol]16.6 g/fBJxsg95.8-15.4The Critical Access Hospital Physician GroupComment on above:Performed By: #### CMP, LDH, PATH SLIDE REV, CBC #### [place] [address] USALymphocytes (Bld) [#/Vol]2.1 10*3/uLNormal1.00-4.8The Critical Access Hospital Physician GroupComment on above:Performed By: #### CMP, LDH, PATH SLIDE REV, CBC #### [place] [address] USALymphocytes/100 WBC (Bld)19.3 %Normal.The Critical Access Hospital Physician GroupComment on above:Performed By: #### CMP, LDH, PATH SLIDE REV, CBC #### [place] [address] USAMCH (RBC) [Entitic mass]31.2 yvUfcakh12.7-34.3The Critical Access Hospital Physician GroupComment on above:Performed By: #### CMP, LDH, PATH SLIDE REV, CBC #### [place] [address] USAMCV (RBC) [Entitic vol]93.4 dXWtocbn16-724Ngt Critical Access Hospital Physician GroupComment on above:Performed By: #### CMP, LDH, PATH SLIDE REV, CBC #### [place] [address] USAMean Corpuscular HGB Conc33.4 g/wOGdbnlj40.0-35.0The Critical Access Hospital Physician GroupComment on above:Performed By: #### CMP, LDH, PATH SLIDE REV, CBC #### [place] [address] USAMonocytes (Bld) [#/Vol]0.9 10*3/uLHigh0.0-0.8The Critical Access Hospital Physician GroupComment on above:Performed By: #### CMP, LDH, PATH SLIDE REV, CBC #### [place] [address] USAMonocytes/100 WBC (Bld)8.7 %Normal.The Critical Access Hospital Physician GroupComment on above:Performed By: #### CMP, LDH, PATH SLIDE REV, CBC #### [place] [address] USANeutrophils (Bld) [#/Vol]7.3 10*3/uLNormal1.8-7.7The Critical Access Hospital Physician GroupComment on above:Performed By: #### CMP, LDH, PATH SLIDE REV, CBC #### [place] [address] USANeutrophils/100 WBC (Bld)68.8 %Normal.The Critical Access Hospital Physician GroupComment on above:Performed By: #### CMP, LDH, PATH SLIDE REV, CBC #### [place] [address] USANRBC%0.1 /100{WBC}Normal0-0.5The [facility] Comment on above:Performed By: #### CMP, LDH, PATH SLIDE REV, CBC #### [place] [address] USAPlatelet mean volume (Bld) [Entitic vol]8.9 fLNormal 6.3-10.7The Critical Access Hospital Physician GroupComment on above:Performed By: #### CMP, LDH, PATH SLIDE REV, CBC #### [place] [address] USAPlatelets (Bld) [#/Vol]167 10*3/kXRhgmyk010-752Kcd Critical Access Hospital Physician GroupComment on above:Performed By: #### CMP, LDH, PATH SLIDE REV, CBC #### [facility] [address] [place] [address] USARBC (Bld) [#/Vol]5.32 10*6/uLHigh3.60-5.00The Critical Access Hospital Physician GroupComment on above:Performed By: #### CMP, LDH, PATH SLIDE REV, CBC #### [place] [address] USAWBC (Bld) [#/Vol]10.7 10*3/uLNormal3.8-11.6The Critical Access Hospital Physician GroupComment on above:Performed By: #### CMP, LDH, PATH SLIDE REV, CBC #### [place] [address] USAComprehensive Metabolic Panelon 55-40-2233Lknvwql [Mass/Vol]4.1 g/dLNormal3.5-5.7The Critical Access Hospital Physician GroupComment on above: Performed By: #### CMP, LDH, PATH SLIDE REV, CBC #### [place] [address] USAAlbumin/Globulin [Mass ratio]1.2 {ratio}NormalThe Critical Access Hospital Physician GroupComment on above:Performed By: #### CMP, LDH, PATH SLIDE REV, CBC #### [place] [address] USAALP [Catalytic activity/Vol]92 U/BMapfoj35-076Utv Critical Access Hospital Physician GroupComment on above:Performed By: #### CMP, LDH, PATH SLIDE REV, CBC #### [place] [address] USAALT [Catalytic activity/Vol]20 U/LNormal7-52The Critical Access Hospital Physician GroupComment on above:Performed By: #### CMP, LDH, PATH SLIDE REV, CBC #### [place] [address] USAAnion gap [Moles/Vol]16.1 mmol/LHigh6.0-15.0The Critical Access Hospital Physician GroupComment on above:Performed By: #### CMP, LDH, PATH SLIDE REV, CBC #### [place] [address] USAAST [Catalytic activity/Vol]26 U/OLuizht20-78Cwi Critical Access Hospital Physician GroupComment on above:Performed By: #### CMP, LDH, PATH SLIDE REV, CBC #### [place] [address] USABilirubin [Mass/Vol]0.6 mg/dLNormal0.3-1.0The Critical Access Hospital Physician GroupComment on above:Performed By: #### CMP, LDH, PATH SLIDE REV, CBC #### [place] [address] USACalcium [Mass/Vol]10.0 mg/dLNormal8.6-10.3The Critical Access Hospital Physician GroupComment on above:Performed By: #### CMP, LDH, PATH SLIDE REV, CBC #### [place] [address] USAChloride [Moles/Vol]101 mmol/NTcbuif98-304Ffr Critical Access Hospital Physician GroupComment on above:Performed By: #### CMP, LDH, PATH SLIDE REV, CBC #### [place] [address] USACO2 [Moles/Vol]26.9 mmol/HWcqbhc98.0-31.0The Critical Access Hospital Physician GroupComment on above:Performed By: #### CMP, LDH, PATH SLIDE REV, CBC #### [place] [address] USACreatinine [Mass/Vol]0.83 mg/dLNormal0.60-1.20The Critical Access Hospital Physician GroupComment on above:Performed By: #### CMP, LDH, PATH SLIDE REV, CBC #### [place] [address] USACreatinine Clr Calc Zgfvwsfo84.05NormalThe Critical Access Hospital Physician GroupComment on above:Performed By: #### CMP, LDH, PATH SLIDE REV, CBC #### [facility] [address] [place] [address] USAGFR/1.73 sq M.predicted MDRD (S/P/Bld) [Vol rate/Area] mL/min/{1.73_m2}NormalThe Critical Access Hospital Physician GroupComment on above:Performed By: #### CMP, LDH, PATH SLIDE REV, CBC #### [facility] [address] [place] [address] USAGlobulin (S) [Mass/Vol]3.3 g/dLNormalThe Critical Access Hospital Physician GroupComment on above:Performed By: #### CMP, LDH, PATH SLIDE REV, CBC #### [facility] [address] [place] [address] USAGlucose [Mass/Vol]169 mg/kRYjlv33-639Wod Critical Access Hospital Physician GroupComment on above:Result Comment: Random Glucose Reference Range is dependent on time and content of last meal. Glucose of more than 200 mg/dL in a nonstressed, ambulatory subject supports the diagnosis of Diabetes Mellitus. ADA recommended reference rangePerformed By: #### CMP, LDH, PATH SLIDE REV, CBC #### [facility] [address] [place] [address] USAPotassium [Moles/Vol]4.0 mmol/LNormal3.5-5.1The Critical Access Hospital Physician GroupComment on above:Performed By: #### CMP, LDH, PATH SLIDE REV, CBC #### [facility] [address] [place] [address] USAProtein [Mass/Vol]7.4 g/dLNormal6.4-8.9The Critical Access Hospital Physician GroupComment on above:Performed By: #### CMP, LDH, PATH SLIDE REV, CBC #### [facility] [address] [place] [address] USASodium [Moles/Vol]140 mmol/SYnzltb739-958Wwf Critical Access Hospital Physician GroupComment on above:Performed By: #### CMP, LDH, PATH SLIDE REV, CBC #### [facility] [address] [place] [address] USAUrea nitrogen [Mass/Vol]8 mg/dLNormal7-25The Critical Access Hospital Physician GroupComment on above:Performed By: #### CMP, LDH, PATH SLIDE REV, CBC #### [facility] [address] [place] [id number] USAComprehensive metabolic panelon 02-16-9233Ibkobeq [Mass/Vol]4.1 g/dL3.5 - 5.7 g/dLNOMS HealthcareAlbumin/Globulin [Mass [...] mg/dL0.60 - 1.20 mg/dLNOMS HealthcareCREATININE CLR CALC QFLINDQJ08.05NOMS HealthcareESTIMATED GFRmL/MinNOMS HealthcareGlobulin (S) [Mass/Vol]3.3 g/dLNOMS HealthcareGlucose [Mass/Vol]169 mg/qSYwhc96 - 100 mg/dLNOUT HealthcareComment on above:Random Glucose Reference Range is [...] [Mass/volume] in Serum or Plasma0.60-1.20 [facility] Medical CenterGlobulin Calc (S) [Mass/Vol]Ordered By: Nataliya Jane on 56-93-0433Ruyirwji (S) [Mass/Vol]Serum globulin measurement by calculation (mass/volume)[facility] CenterGlucose [Mass/volume] in Serum or PlasmaOrdered By: Nataliya Jane on 60-87-3865Cpljwwi [Mass/Vol] Glucose [Mass/volume] in Serum or YbkyafTpmq35-711QugpvrbldPremier Health Upper Valley Medical CenterComment on above:ADA recommended reference rangeRandom Glucose Reference Range is dependent on time and content of last meal. Glucose of more than 200 mg/dL in a nonstressed, ambulatory subject supports the diagnosisof Diabetes Mellitus.Juan 04-14-2024L Specimen: [id number] Received: 04/14/24 Status: FIDEL Knox Num: [id number] Spec Type: Impression Subm Dr: Nataliya Jane APRN Tissues: PATHPER Procedures: PATHREVIEW Age/ Patient Sex Location Account Attending Physician Taye Gay 68/F XT [id number] Nataliya Estephania Jane APRN SPEC NUM: [id number] RECD: 04/14/24 STATUS: FIDEL MARINOBrittany NUM: [id number] RONNY: 04/14/24- SUBM DR: Nataliya Jane APRN ENTERED: 04/14/[address]: CHRISTOPHER TYPE: Impression DEPT: CT ENTERED BY: [id number] RECV BY: [id number] ORDERED: PATHREVIEW ORDERED: PATHREVIEW Pathologist Review Abnormal [...] chronic smoking. Clinical correlations are suggested CPT: 83061 Specimen: [id number] Received: 04/14/24 Status: KOKONicholas Knox Num: [id number] Spec Type: Impression Subm Dr: Nataliya Jane APRN Tissues: PATHPER Procedures: PATHREVIEW Patient: Taye Gay [id number] (Continued) Specimen: [id number] Received: 04/14/24 (Continued) Signed (signature on file) Nereyda Holt MD 04/15/24 0920 Specimen: [id number] Received: 04/14/24 Status: FIDEL Knox Num: [id number] Spec Type: Impression Subm Dr: Nataliya Jane APRN Tissues: PATHPER Procedures: PATHREVIEW Patient: Taye Gay [id number] (Continued) Specimen: [id number] Received: 04/14/24-1147 (Continued) CBC [...] % Lymp % (Auto) 19.3 . % [place] % (Auto) 8.7 . % Eos % (Auto) 2.6 . % Baso % (Auto) 0.6 . % NRBC% 0.1 0-0.5 /100 WBC Neut # (Auto) 7.3 1.8-7.7 x10E3/uL Lymph # (Auto) 2.1 1.00-4.8 x10E3/uL [place] # (Auto) 0.9 H 0.0-0.8 x10E3/uL Eos # (Auto) 0.3 0.0-0.45 x10E3/uL Baso# (Auto) 0.1 0.0-0.2 x10E3/uL Specimen: [id number] Received: 04/14/24 Status: FIDEL Knox Num: [id number] Spec Type: Impression Subm Dr: Nataliya Jane APRN Tissues: PATHPER Procedures: PATHREVIEW Patient: Taye Gay [id number] (Continued) Signed (signature on file) Nereyda Holt MD 04/15/24 0920[facility] Physician [facility] Lactate Dehydrogenaseon 54-16-1131YVV Lactate Wssmhdtzdyzvc245 U/UUkaorl065-349Fej Critical Access Hospital Physician GroupComment on above:Result Comment: PERFORMED BY: [facility] [address] [place] [address] PATHOLOGIST SOCIAL INSURANCE ADVISER LE MACE M.D.Performed By: #### CMP, LDH, PATH SLIDE REV, CBC #### [facility] [address] [place] [address] USALDH Lactate to pyruvate reaction [Catalytic activity/Vol] on 61-44-1473KHQ LACTATE XUYMHUGIKXYGC380 U/L140 - 271 U/LNOMS HealthcareLactate dehydrogenase [Enzymatic activity/volume] in Serum or Plasma by Lactate to py Ordered By: Nataliya Jane on 96-08-7249DMF Lactate to pyruvate reaction [Catalytic activity/Vol]Lactate dehydrogenase [Enzymatic activity/volume] in Serum or Plasma by Lactate to dz460-493LoemxieroPremier Health Upper Valley Medical CenterNo Panel Informationon 34-35-5944LMQVCameron Regional Medical CenterNo Panel InformationOrdered By: Nataliya Jane on 44-00-6775Ykqguuqvq GFR (CKD-EPI)> 60.0 mL/MinPremier Health Upper Valley Medical CenterPharmacy Creatinine Clearance (Chem78.05Pomerene Hospitallides for Pathologist ReviewOrdered path reviewPremier Health Upper Valley Medical CenterPATHOLOGIST SLIDE REVIEW ([facility])on 84-32-9401TJZRCKLQFPR SLIDE REVIEW Ordered Path ReviewFirstHealth Moore Regional Hospital - HokePathologist Slide Reviewon 98-63-7347Phyzzeqipld Slide ReviewOrdered Path ReviewNoMission Hospital McDowell Physician GroupComment on above:Result Comment: PERFORMED BY: [address] [address] PATHOLOGIST SOCIAL INSURANCE ADVISER LE MACE M.D.Performed By: #### CMP, LDH, PATH SLIDE REV, CBC #### [facility] [address] [place] [address] USAPotassium [Moles/volume] in Serum or PlasmaOrdered By: Nataliya Jane on 37-28-0593Ztvdnbzwx [Moles/Vol]Potassium [Moles/volume] in Serum or Plasma3.5-5.1FSelect Medical Cleveland Clinic Rehabilitation Hospital, BeachwoodProtein [Mass/volume] in Serum or PlasmaOrdered By: Nataliya Jane on 01-94-9633Opzbofs [Mass/Vol]Protein [Mass/volume] in Serum or Plasma6.4-8.9[facility] Hospitalerum or plasma albumin/globulin mass ratioOrdered By: Nataliya Jane on 04-14-2024 Albumin/Globulin [Mass ratio]Serum or plasma albumin/globulin mass ratio [facility] Hospitalerum or plasma anion gap determinationOrdered By: Nataliya Jane on 05-23-8696Pvvst gap [Moles/Vol]Serum or plasma anion gap determinationHigh6.0-15.0[facility] Hospitalodium [Moles/volume] in Serum or PlasmaOrdered By: Nataliya Jane on 85-54-1260Cqclxv [Moles/Vol] Sodium [Moles/volume] in Serum or Yhjbbb993-059YvjbwlsvqPremier Health Upper [facility] Center Urea nitrogen [Mass/volume] in Serum or PlasmaOrdered By: Nataliya Jane on 16-85-2091Gdug nitrogen [Mass/Vol]Urea nitrogen [Mass/volume] in Serum or Plasma 7-[facility] Medical CenterECG 12 [facility] 00-06-0284Svwpey sinus rhythm [facility] Work Phone: [facility] Work Phone: aerobic cultureOrdered By: Karl Fritz on 68-74-5355Hyzkdpcw identified Aer cx Nom (Unsp spec)[facility] CenterECG 12 [facility] 05-39-4557EpewxwqxfgThe [facility] Work Phone: Normal sinus rhythmCPACSThe [facility] Work Phone: aNAon 71-00-8207OPXDAHDMJAW ABS, IFAPositiveCritically abnormal.NOMS HealthcareComment on above:Negative <1:80 [...] Scleroderma-diffuse, Scleroderma-Autoimmune Myositis Overlap Syndrome, Systemic Lupus Pdqahbzwklpgj-Bdzkzirbeux-Hlhkcdpwtd Myositis Overlap Syndrome, Systemic Autoimmune Rheumatic Disease, [...] Cytopenias, Linear Scleroderma, Antiphospholipid Syndrome Performed at: [address] [id number] Registered Nurse Cardiac: Yuri Osullivan PhD, Phone: [phone] SPECKLED PATTERN1:320High.NOMS HealthcareComment on above:ICAP nomenclature: AC-2,4,5,29ANCA PROFILE (ANCA+MPO+PR3)on 45-96-5067GRWPXYGPLDZGZJDXCMO (MPO) ABS <0.20.0 - 0.9NOMS HealthcareATYPICAL PANCA<1:20Neg:<1:20NOMS HealthcareComment on above:The atypical pANCA pattern has been observed in a significant percentage of patients with ulcerative colitis, primary sclerosing cholangitis and autoimmune hepatitis. Performed at: [address] [id number] Registered Nurse Cardiac: Christine Pham MD, Phone: [phone] Performed at: [address] [id number] Registered Nurse Cardiac: Yuri Osullivan PhD, Phone: [phone] CYTOPLASMIC (C-ANCA)<1:20Neg:<1:20NOMS HealthcarePERINUCLEAR (P-ANCA)<1:20 Neg:<1:20NOMS HealthcareComment on [...] (PR3) ANTIBODIES<0.20.0 - 0.9NOMS HealthcareANTI-CENTROMERE B ANTIBODIESon 77-33-3220EWLW-CENTROMERE B ANTIBODIES<0.20.0 - 0.9[facility] Comment on above:Performed at: [address] [id number] Registered Nurse Cardiac: Yuri Osullivan PhD, Phone: [phone] ANTI-DSDNA(DBL)ABon 39-74-1868YXIQ-DSDNA(DBL)AB10 - 9NOMS HealthcareComment on above:Negative <5 Equivocal 5 - 9 Positive >9 ANTI-RNPon 46-94-4283MRQZ-RNP0.30.0 - 0.9NOMS HealthcareANTIRIBOSOMAL P ANTIBODIESon 92-91-1613GNHCSEXKRBKIX P ANTIBODIES<0.20.0 - 0.9[facility] Anti-Fritz antibodyon 68-14-5398SSGH-FRITZ ANTIBODIES<0.20.0 - 0.9NOMS HealthcareHISTONE ANTIBODIESon 74-14-2657UDPDBYC ANTIBODIES0.60.0 - 0.9NOMS HealthcareComment on above:Negative <1.0 Weak Positive 1.0 - 1.5 Moderate Positive 1.6 - 2.5 Strong Positive >2.5 Performed at: [facility] [id number] Registered Nurse Cardiac: Christine Pham MD, Phone: [phone] SUSHMA-1 ANTIBODYon 94-83-7492IG-1 ANTIBODY<0.20.0 - 0.9NOMS HealthcareMitochondrial antibodies, M2on 27-45-1196ODYPWGRRJCWSR (M2) ANTIBODY<20.00.0 - 20.0NOMS HealthcareComment on above:Negative 0.0 - 20.0 Equivocal 20.1 - 24.9 Positive >24.9 Mitochondrial (M2) Antibodies are found in 90-96% of patients with primary biliary cirrhosis. Performed at: [facility] [address] [place], [place] [id number] Registered Nurse Cardiac: Yuri Osullivan PhD, Phone: [phone] No Panel Informationon 47-73-4959SPXJ HealthcareSCLERODERMA 70 ANTIBODIESon 97-88-7541CETJGQAHTSP 70 ANTIBODIES<0.20.0 - 0.9NOMS HealthcareSJOGRENS ANTI-SSA/SSBon 78-54-7709HV-A/RO SJOGRENS ANTIBODY<0.20.0 - 0.9[facility] SS-B/LA SJOGRENS ANTIBODY<0.20.0 - 0.9NOMS HealthcareSRP AUTOANTIBODIESon 28-56-7615OED (SIGNAL RECOG. PARTICLE)NegativeNegativeNOUT HealthcareComment on above:This test was developed and its performance characteristics determined by [employer]. It has not been cleared or approved by the Food and Drug Administration. Performed at: [facility] [address] [place] [id number] Registered Nurse Cardiac: Juan Cruz MD, Phone: [phone] Alanine aminotransferase [Enzymatic activity/volume] in Serum or PlasmaOrdered By: Tolu Salinas on 81-63-5895SFO [Catalytic activity/Vol]31 U/L7-52[facility] Medical CenterAlbumin [Mass/volume] in Serum or Plasma by Bromocresol green (BCG) dye binding methoOrdered By: Tolu Salinas on 07-68-3167Zkpyoat BCG dye [Mass/Vol]4.2 g/dL3.5-5.7FSelect Medical Cleveland Clinic Rehabilitation Hospital, BeachwoodAlkaline phosphatase [Enzymatic activity/volume] in Serum or PlasmaOrdered By: Tolu Salinas on 01-37-5366XPM [Catalytic activity/Vol]75 U/Z15-427TimdqsfsuPremier Health Upper Valley Medical CenterAspartate aminotransferase [Enzymatic activity/volume] in Serum or PlasmaOrdered By: Tolu Salinas on 95-74-5773AQJ [Catalytic activity/Vol]37 U/L 13-39Prem[facility] Medical CenterBasophil percentageOrdered By: Oz Kincaid on 31-99-9125Mdmzsjfe zhjygueigw16 ug/rS47-085VgqmsnmgkPremier Health Upper Valley Medical Center Comment on above:This test was developed and its performance characteristicsdetermined by [employer]. It has not been cleared orapproved by the Food and Drug Administration. Detection Limit = 5Performed at: [place] [address] [place], [place] [id number] Director: Christine Pham MD, Phone: [phone] percentage2 ug/L0-9[facility] Medical CenterComment on above:This test was developed and its performance characteristicsdetermined by [employer]. It has not been cleared orapproved by the Food and Drug Administration. Detection Limit = 1Bilirubin.total [Mass/volume] in Serum or PlasmaOrdered By: Tolu Salinas on 53-08-6041Djimrusfn [Mass/Vol]0.4 mg/dL0.3-1.0[facility] CenterBlood lead detectionOrdered By: Oz Kincaid on 59-05-8676Ijnh Ql (Bld)<1.0 ug/dL0.0-3.4FSelect Medical Cleveland Clinic Rehabilitation Hospital, BeachwoodComment on above:Testing performed by Inductively coupled plasma/MassSpectrometry.Analysis by inductively coupled plasma/massspectrometry (ICP/MS)This test was developed and its performance characteristicsdetermined by [employer]. It has not been cleared orapproved by the Food and Drug Administration. Environmental Exposure: WHO Recommendation <5.0 Occupational Exposure: OSHA Lead Std 40.0 BOB 30.0 Detection Limit = 1.0Performed at: [facility] [employer] [id number] Director: Yuri bynum PhD, Phone: [phone] mercury measurement (mass/volume)Ordered By: Oz Kincaid on 43-86-9584Savmivt (Bld) [Mass/Vol]<1.0 ug/L0.0-14.9[facility] Medical CenterComment on above:This test was developed and its performance characteristicsdetermined by [employer]. It has not been cleared orapproved by the Food and Drug Administration. Detection Limit = 1.0Performed at: [facility] [employer] [id number] Director: Christine Pham MD, Phone: [phone] [Mass/volume] in Serum or PlasmaOrdered By: Tolu Salinas on 30-28-4919Heikimy [Mass/Vol]9.9 mg/dL 8.6-10.3FSelect Medical Cleveland Clinic Rehabilitation Hospital, BeachwoodCarbon dioxide, total [Moles/volume] in Serum or PlasmaOrdered By: Tolu Salinas on 35-34-7930WL8 [Moles/Vol]32.0 mmol/LHigh21.0-31.0[facility] CenterChloride [Moles/volume] in Serum or PlasmaOrdered By: Tolu Salinas on 33-05-6613Hiwxlody [Moles/Vol]103 mmol/C02-609YlqypkyfrPremier Health Upper Valley Medical CenterCreatinine [Mass/volume] in Serum or PlasmaOrdered By: Tolu Salinas on 83-41-4138Tfpspjwckf [Mass/Vol]0.97 mg/dL 0.60-1.20[facility] Medical CenterGlobulin Calc (S) [Mass/Vol]Ordered By: Tolu Salinas on 92-73-5115Jfbfxqii (S) [Mass/Vol]2.7 g/dLPremier Health Upper Valley Medical CenterGlucose [Mass/volume] in Serum or PlasmaOrdered By: Tolu Salinas on 05-47-6041Qubieve [Mass/Vol]114 mg/dVUxen26-545RicxzgpmbPremier Health Upper Valley Medical CenterComment on above:ADA recommended reference rangeRandom Glucose Reference Range is dependent on time and content of last meal. Glucose of more than 200 mg/dL in a nonstressed, ambulatory subject supports the diagnosisof Diabetes Mellitus.HIV 1 and HIV-2 antibody assay with HIV-1 p24 antigen detectionOrdered By: Oz Kincaid on 91-04-1100WUZ 1+2 Ab+HIV1 p24 Ag IA QlNon-ReactiveNon Reactive [facility] CenterComment on above:HIV-1/HIV-2 antibodies and HIV-1 p24 antigen were NOTdetected. There is no laboratory evidence of HIV infection.HIV NegativePerformed at: [address] [id number] Director: Yuri Osullivan PhD, Phone: [phone] B virus surface Ag [Presence] in Serum or Plasma by ImmunoassayOrdered By: Oz Kincaid on 56-58-9637AWM surface Ag IA QlNegativeNegativePremier Health Upper Valley Medical CenterHekentucky river medical centertis C virus IgG Ab [Presence] in Serum or Plasma by Immunoassay Ordered By: Oz Kincaid on 39-91-4627WVF IgG IA QlNon-ReactiveNon ReactivePremier Health Upper Valley Medical CenterHepatitis C virus RNA [Units/volume] (viral load) in Serum or Plasma by TEJINDER with probOrdered By: Oz Kincaid on 44-02-2231PWN RNA TEJINDER+probe QnN/[facility] OhioHekentucky river medical centertis C virus RNA [log units/volume] (viral load) in Serum or Plasma by TEJINDER withOrdered By: Oz Kincaid on 18-50-4619BAW RNA TEJINDER+probe [Log units/Vol]N/[facility] [place] Lactate dehydrogenase [Enzymatic activity/volume] in Serum or Plasma by Lactate to pyOrdered By: Oz Kincaid on 41-35-0244FRU Lactate to pyruvate reaction [Catalytic activity/Vol]156 U/C124-748ZnztvprvtPremier Health Upper Valley Medical CenterMagnesium [Mass/volume] in Serum or PlasmaOrdered By: Tolu Salinas on 35-59-3379Vvhlvutce [Mass/Vol]2.0 mg/dL1.9-2.7FSelect Medical Cleveland Clinic Rehabilitation Hospital, BeachwoodNo Panel Information Ordered By: Oz Kincaid on 45-50-7251Evfknsymocldm Test 2See [facility] City HospitalComment on above:See report. Scanned copy available in EMR.Hepatitis A IgM AntibodyNegativeNegativePremier Health Upper [facility] Medical Center Hepatitis B Core IgM AntibodyNegativeNegativePrem[facility] Health [facility] Hepatitis C InterpretationComment.[facility] CenterComment on above:Not infected with HCV unless early or acute infection issuspected (which may be delayed in an immunocompromisedindividual), or other evidence exists to indicate HCVinfection.Performed at: [facility] [employer] [id number] Director: Yuri Osullivan PhD, Phone: [phone] [facility] Metro[facility] SystemComment on above:See report. Scanned copy available in EMR.Whole Blood Jkkg081 ug/xL865-699VaoevljqzPremier Health Upper Valley Medical CenterComment on above:This test was developed and its performance characteristicsdetermined by [employer]. It has not been cleared orapproved by the Food and Drug Administration.Performed at: [facility] [employer] [id number] Director: Christine Pham MD, Phone: [phone] Panel InformationOrdered By: Tolu Salinas on 91-39-4117Xqcimffsv GFR (CKD-EPI)> 60.0 mL/MinPremier Health Upper Valley Medical CenterPharmacy Creatinine Clearance (ChemN/[facility] OhioPotassium [Moles/volume] in Serum or PlasmaOrdered By: Tolu Salinas on 59-85-5600Ztzdpurnp [Moles/Vol]4.5 mmol/L3.5-5.1FSelect Medical Cleveland Clinic Rehabilitation Hospital, BeachwoodProtein [Mass/volume] in Serum or PlasmaOrdered By: Tolu Salinas on 61-55-0329Ljicabb [Mass/Vol]6.9 g/dL6.4-8.9 [facility] Hospitalerum angiotensin converting enzyme (VITA) measurementOrdered By: Oz Kincaid on 36-48-4210Kymqhxezieu converting enzyme [Catalytic activity/Vol]53 U/B43-37PnfernnvhPremier Health Upper Valley Medical CenterComment on above:Performed at: [facility] [employer] Director: Yuri Osullivan PhD, Phone: [phone] cryoglobulin detection Ordered By: Oz Kincaid on 40-00-1806Aiuguvoacbms Ql (S)CommentNone detected [facility] CenterComment on above:None Detected at 72 hoursThis test was developed and its performance characteristicsdetermined by [employer]. It has not been cleared orapproved by the Food and Drug Administration.Performed at: [facility] [employer] [id number] Director: Yuri Osullivan PhD, Phone: [phone] or plasma albumin/globulin mass ratioOrdered By: Tolu Salinas on 30-03-6367Iekonsm/Globulin [Mass ratio]1.6 {ratio}[facility] Hospitalerum or plasma anion gap determination Ordered By: Tolu Salinas on 92-84-6488Oevte gap [Moles/Vol]8.5 mmol/L6.0-15.0 [facility] Hospitalerum or plasma ceruloplasmin measurement (mass/volume)Ordered By: Oz Kincaid on 50-84-3164Vnchucnctqdcc [Mass/Vol]26.8 mg/dL19.0-39.0[facility] Medical CenterComment on above:Performed at: [facility] [employer] [id number] Director: Yuri Osullivan PhD, Phone: [phone] or plasma complement C3 measurement (mass/volume)Ordered By: Oz Kincaid on 83-37-5183Hyfftdvkac C3 [Mass/Vol]147 mg/dL 82-167Prem[facility] Medical CenterComment on above:Performed at: [address] [id number] Director: Yuri Osullivan PhD, Phone: [phone] or plasma complement C4 measurement (mass/volume)Ordered By: Oz Kincaid on 55-63-4427Gyqngcueio C4 [Mass/Vol]32 mg/dL 12-38Pome[facility] Hospitalodium [Moles/volume] in Serum or Plasma Ordered By: Tolu Salinas on 20-64-1162Pojhct [Moles/Vol]139 mmol/X459-561 [facility] Medical CenterThallium [Mass/volume] in Serum or Plasma Ordered By: Oz Kincaid on 38-67-3537Koshqyfq [Mass/Vol]<1.0 ng/mL<5.0[facility] Medical CenterComment on above:Thallium concentrations greater than 300 ng/ml are consistent with acute toxicity. Urine is the preferred specimen for assessment of thallium exposure. Thallium analysis performed by inductively coupled plasma / mass spectrometry (ICP/MS).This test was developed and its performance characteristicsdetermined by [employer]. It has not been cleared or approvedby the Food and Drug Administration.Performed at: [facility] [address] [id number] Director: Whitney Arevalo [facility], Phone: [phone] nitrogen [Mass/volume] in Serum or Plasma Ordered By: Tolu Salinas on 79-52-9157Yynp nitrogen [Mass/Vol]11 mg/dL7-25 [facility] CenterLACTATE AND PYRUVATEon 74-93-3131Acbuvnikqbxryt and review of laboratory resultsAbnormalNOMS HealthcareLACTIC ACID, AAPOAB28.1 mg/dLHigh4.8 - 25.7 mg/dLNOMS HealthcarePYRUVIC ACID, BLOOD0.7 mg/dL0.3 - 0.7 mg/dLNOMS HealthcareComment on above:This test was developed and its performance characteristics determined by [employer]. It has not been cleared or approved by the Food and Drug Administration. Performed at: [facility] [address] [place], [place] [id number] Registered Nurse Cardiac: Yuri Osullivan PhD, Phone: [phone] Performed at: [address] [id number] Registered Nurse Cardiac: Christine Pham MD, Phone: [phone] NOMS HealthcareDNA double strand Ab [Units/volume] in SerumOrdered By: Oz Kincaid on 38-82-6577BQP double strand Ab Qn (S)1 [IU]/mL0-9[facility] Medical CenterComment on above:Negative <5 Equivocal 5 - 9 Positive >9Myeloperoxidase Ab [Units/volume] in Serum by ImmunoassayOrdered By: Oz Kincaid on 11-26-2023 Myeloperoxidase Ab IA Qn (S)<0.2 units0.0-0.9[facility] CenterNo Panel InformationOrdered By: Oz Kincaid on 37-83-2208Kmih-Nuclear Antibody Comment 2Comment.[facility] Medical CenterComment on above:Pattern Potential Disease Association Homogeneous Systemic Lupus Erythematosus, Drug Induced Systemic Lupus Erythematosus, Chronic Autoimmune hepatitis, Juvenile Idiopathic Arthritis Speckled Sjogren Syndrome, Systemic Lupus Erythematosus, Subacute Cutaneous Lupus, Lupus, Congenital Heart Block, Mixed Connective Tissue Disease, Scleroderma-diffuse, Scleroderma- Autoimmune Myositis Overlap Syndrome, Systemic Lupus Adotvsjiakpju-Anlmdxqnzih-Jsxlyoninc Myositis Overlap Syndrome, Systemic Autoimmune Rheumatic Disease, [...] Cytopenias, Linear Scleroderma, Antiphospholipid Syndrome Performed at: [facility] [id number] Director: Yuri Osullivan PhD, Phone: [phone] p-ANCA<1:20 titerNeg:<1:20[facility] Medical CenterComment on above:The atypical pANCA pattern has been observed in asignificant percentage of patients with ulcerativecolitis,primary sclerosing cholangitis and autoimmune hepatitis.Performed at: [facility] [employer] [id number] Director: Christine Pham MD, Phone: [phone] at: [facility] [id number] Director: Yuri Osullivan PhD, Phone: [phone] ANCA (p-ANCA) Antibody<1:20 titerNeg:<1:20[facility] Comment on above:The presence of [...] only by EIA. Ref. AM J Clin Ovixwv7606;111:507-513.Plasma Lactic Acid, Jtldvs60.1 mg/dLHigh4.8-25.7FSelect Medical Cleveland Clinic Rehabilitation Hospital, BeachwoodPyruvic Acid0.7 mg/dL0.3-0.7FSelect Medical Cleveland Clinic Rehabilitation Hospital, BeachwoodComment on above:This test was developed and its performance characteristicsdetermined by [employer]. It has not been cleared orapproved by the Food and Drug Administration.Performed at: [facility] [employer] [id number] Director: Yuri Osullivan PhD, Phone: [phone] at: [facility] [employer] [id number] Director: Christine Pham MD, Phone: [phone] Antibody0.3 AI 0.0-0.9[facility] Hospitalcl-70 (Scleroderma) Antibody<0.2 AI 0.0-0.9[facility] Hospitalignal Recognition Particle (SRP) NegativeNegativePremier Health Upper Valley Medical CenterComment on above:This test was developed and its performance characteristicsdetermined by [employer]. It has not been cleared orapproved by the Food and Drug Administration.Performed at: [facility] [address] [id number] Director: Juan Cruz MD, Phone: [phone] 3 Ab [Units/volume] in Serum by ImmunoassayOrdered By: Oz Kincaid on 94-71-8972Rwoqrtasks 3 Ab IA Qn (S)<0.2 units 0.0-0.9[facility] Medical CenterRibosomal P Ab [Units/volume] in Serum Ordered By: Oz Kincaid on 47-52-5787Adctkyrrh P Ab Qn (S)<0.2 AI0.0-0.9[facility] Hospitalerum Sushma-1 extractable nuclear antibody assay (units/volume)Ordered By: Oz Kincaid on 31-54-2027Lr-1 extractable nuclear Ab Qn (S)<0.2 AI0.0-0.9[facility] Hospitalerum Sjogrens syndrome-A extractable nuclear antibody assay (units/volume)Ordered By: Oz Kincaid on 53-76-9801Ctomkccr syndrome-A extractable nuclear Ab Qn (S)<0.2 AI0.0-0.9 [facility] Hospitalerum Sjogrens syndrome-B extractable nuclear antibody assay (units/volume)Ordered By: Oz Kincaid on 13-60-9923Ghmnyypk syndrome-B extractable nuclear Ab Qn (S)<0.2 AI0.0-0.9[facility] Hospitalerum Fritz extractable nuclear antigen (ARIELLE) antibody assay (units/volume)Ordered By: Oz Kincaid on 68-07-3286Dtfmn extractable nuclear Ab Qn (S)<0.2 AI0.0-0.9[facility] Hospitalerum centromere protein B antibody assay (units/volume)Ordered By: Oz Kincaid on 06-38-1305Gjnwvwuxio protein B Ab Qn (S)<0.2 AI0.0-0.9[facility] Medical CenterComment on above:Performed at: [facility] [id number] Director: Yuri Osullivan PhD, Phone: [phone] classic neutrophil cytoplasmic antibody titer by immunofluorescenceOrdered By: Oz Kincaid on 56-38-5646Ndsmvarhwv cytoplasmic Ab.classic IF (S) [Titer]<1:20 titerNeg:<1:20 [facility] Hospitalerum histone IgG antibody assay by immunoassay (units/volume)Ordered By: Oz Kincaid on 28-39-4327Rsxtdte IgG IA Qn (S)0.6 Units 0.0-0.9[facility] Medical CenterComment on above:Negative <1.0 Weak Positive 1.0 - 1.5 Moderate Positive 1.6 - 2.5 Strong Positive >2.5Performed at: [facility] [id number] Director: Christine Scott, Phone: [phone] homogeneous pattern antinuclear antibody (PO) titerOrdered By: Oz Kincaid on 50-10-7902Ejtclgyidh nuclear Ab pattern (S) [Titer]N/AFCincinnati Children's Hospital Medical Centererum mitochondria M2 IgG antibody assay (units/volume)Ordered By: Oz Kincaid on 53-84-9249Uqvimfsnmzeo M2 IgG Qn (S)<20.0 Units0.0-20.0[facility] CenterComment on above: Negative 0.0 - 20.0 Equivocal 20.1 - 24.9 Positive >24.9Mitochondrial (M2) Antibodies are found in 90-96% ofpatients with primary biliary cirrhosis.Performed at: [facility] [id number] Director: Yuri Osullivan PhD, Phone: [phone] nuclear antibody titerOrdered By: Oz Kincaid on 98-44-8940Dtdswhd Ab (S) [Titer]Positive Abnormal.[facility] CenterComment on above:Negative <1:80 Borderline 1:80 Positive >1:80Serum speckled pattern antinuclear antibody (PO) titerOrdered By: Oz Kincaid on 07-96-8362Gshitfdd nuclear Ab pattern (S) [Titer] 1:320High.[facility] CenterComment on above:ICAP nomenclature: AC-2,4,5,29Aspartate aminotransferase [Enzymatic activity/volume] in Serum or PlasmaOrdered By: Jonas Ch on 79-34-4663WEE [Catalytic activity/Vol]45 U/EFnvu70-15KtmjkivvmPremier Health Upper Valley Medical CenterCalcium [Mass/volume] in Serum or PlasmaOrdered By: Jonas Ch on 11-91-1197Nafoqpy [Mass/Vol]10.7 mg/dLHigh 8.6-10.3FSelect Medical Cleveland Clinic Rehabilitation Hospital, BeachwoodCarbon dioxide, total [Moles/volume] in Serum or PlasmaOrdered By: Jonas Ch on 56-48-0883PL2 [Moles/Vol]27.7 mmol/L21.0-31.0[facility] Medical CenterChloride [Moles/volume] in Serum or PlasmaOrdered By: Jonas Ch on 10-42-9128Okckqotn [Moles/Vol]102 mmol/O76-040FzdtugaycPremier Health Upper Valley Medical CenterCreatinine [Mass/volume] in Serum or PlasmaOrdered By: Jonas Ch on 93-99-8436Fpycsgjxgw [Mass/Vol]1.02 mg/dL0.60-1.20[facility] Medical CenterCreatinine [Mass/volume] in Urine Ordered By: Angelique Russell on 68-70-5475Jlkwibqmfx (U) [Mass/Vol]123.00 mg/dL [facility] CenterComment on above:No reference range established Glucose [Mass/volume] in Serum or PlasmaOrdered By: Jonas Ch on 02-94-4386Tvtimtd [Mass/Vol]158 mg/nPHyss88-606VjiwwgigpPremier Health Upper Valley Medical Center Comment on above:ADA recommended reference rangeRandom Glucose Reference Range is dependent on time and content of last meal. Glucose of more than 200 mg/dL in a nonstressed, ambulatory subject supports the diagnosisof Diabetes Mellitus. Microalbumin [Mass/volume] in UrineOrdered By: Angelique Russell on 77-71-0398Hbgozyi DL <= 20 mg/L (U) [Mass/Vol]3.0 mg/dLHigh0.0-1.8[facility] CenterNo Panel InformationOrdered By: Jonas Ch on 80-14-5735Puqusvkvs GFR (CKD-EPI)> 60.0 mL/MinPremier Health Upper Valley Medical CenterPharmacy Creatinine Clearance (ChemN/AFSelect Medical Cleveland Clinic Rehabilitation Hospital, BeachwoodPotassium [Moles/volume] in Serum or PlasmaOrdered By: Jonas Ch on 06-97-8524Ensgjtlns [Moles/Vol]4.1 mmol/L3.5-5.1FCincinnati Children's Hospital Medical Centererum or plasma anion gap determinationOrdered By: Jonas Ch on 70-97-5280Kmbeu gap [Moles/Vol]12.4 mmol/L6.0-15.0[facility] Hospitalodium [Moles/volume] in Serum or PlasmaOrdered By: Jonas Ch on 37-32-6045Mntvrh [Moles/Vol]138 mmol/L 136-145[facility] CenterThyrotropin [Units/volume] in Serum or PlasmaOrdered By: Jonas Ch on 03-56-7031PTA Qn3.39 m[IU]/L0.45-5.33 [facility] CenterUrea nitrogen [Mass/volume] in Serum or Plasma Ordered By: Jonas Ch on 30-10-5989Ypns nitrogen [Mass/Vol]20 mg/dL7-25 [facility] CenterUrine microalbumin/creatinine mass ratioOrdered By: Angelique Russell on 07-85-0700Pnandiw/Creatinine DL <= 20 mg/L (U) [Mass ratio] 24.4 mg/g0.0-30.0[facility] CenterComment on above:30-300 mg/g indicates an increased risk for diabetic nephropathy. Greater than 300 mg/g is consistent with clinical nephropathy. (Am. J. Kidney Disease 1995, 25:107)No Panel Informationon 92-02-5408Wdxsfla Osxhpqi897UcztvuzfjPremier Health Upper Valley Medical CenterECG 12 [place] 18-94-7167Qkgnje sinus rhythm Normal EKG QTc [facility] Work Phone: basophils Auto (Bld) [#/Vol]Ordered By: Chaka Frye on 42-27-8514Vmpjcjnhv (Bld) [#/Vol]0.0 10*3/uL0.0-0.2FSelect Medical Cleveland Clinic Rehabilitation Hospital, BeachwoodBasophils/100 WBC Auto (Bld)Ordered By: Chaka Frye on 06-25-4170Wavtafvfk/100 WBC (Bld)0.5 %.[facility] CenterCalcium [Mass/volume] in Serum or PlasmaOrdered By: Chaka Frye on 74-78-4570Swfcgvs [Mass/Vol]9.5 mg/dL8.6-10.3FSelect Medical Cleveland Clinic Rehabilitation [facility], [place]wood Carbon dioxide, total [Moles/volume] in Serum or PlasmaOrdered By: Chaka Frye on 94-29-3401OW6 [Moles/Vol]30.0 mmol/L21.0-31.0[facility] CenterChloride [Moles/volume] in Serum or PlasmaOrdered By: Chaka Frye on 65-89-9421Tocktrqg [Moles/Vol]103 mmol/B92-629YjluonfboPremier Health Upper Valley Medical CenterCreatinine [Mass/volume] in Serum or PlasmaOrdered By: Chaka Frye on 62-57-3812Rglxynpdvw [Mass/Vol]0.98 mg/dL0.60-1.20[facility] CenterEosinophils Auto (Bld) [#/Vol]Ordered By: Chaka Frye on 79-15-5150Erfsgnzdnar (Bld) [#/Vol]0.4 10*3/uL0.0-0.45[facility] CenterEosinophils/100 WBC Auto (Bld)Ordered By: Chaka Frye on 63-35-5593Wcylgxvvlom/100 WBC (Bld)5.2 %.[facility] CenterErythrocyte distribution width Auto (RBC) [Ratio]Ordered By: Chaka Frye on 58-64-1635Rgjgfspcaxo distribution width (RBC) [Ratio]14.0 % 11.9-15.3FSelect Medical Cleveland Clinic Rehabilitation Hospital, BeachwoodGlucose Glucometer (BldC) [Mass/Vol] Ordered By: Chaka Frye on 90-92-8163Aiyvmsv [Mass/Vol]137 mg/dL [facility] CenterComment on above:Random Glucose Reference Range is dependent on time and content of last meal. Glucose of more than 200 mg/dL in a nonstressed, ambulatory subject supports the diagnosis of Diabetes Mellitus.Glucose [Mass/volume] in Serum or PlasmaOrdered By: Chaka Frye on 05-00-8646Suexlgi [Mass/Vol]102 mg/mAHenn83-612NbnmexdowPremier Health Upper Valley Medical CenterComment on above:ADA recommended reference rangeRandom Glucose Reference Range is dependent on time and content of last meal. Glucose of more than 200 mg/dL in a nonstressed, ambulatory subject supports the diagnosisof Diabetes Mellitus.Hematocrit Auto (Bld) [Volume fraction]Ordered By: Chaka Frye on 86-67-4983Cbesqhlkjh (Bld) [Volume fraction]44.6 %34.0-46.4FSelect Medical Cleveland Clinic Rehabilitation Hospital, BeachwoodHemoglobin [Mass/volume] in BloodOrdered By: Chaka Frye on 97-24-4689Tmllsfwxwc (Bld) [Mass/Vol]14.6 g/dL11.8-15.4FSelect Medical Cleveland Clinic Rehabilitation Hospital, BeachwoodLeukocytes [#/volume] corrected for nucleated erythrocytes in Blood by Automated counOrdered By: Chaka Frye on 01-36-2874KPX corrected for nucl RBC Auto (Bld) [#/Vol]7.4 10*3/uL3.8-11.6FSelect Medical Cleveland Clinic Rehabilitation Hospital, BeachwoodLymphocytes Auto (Bld) [#/Vol]Ordered By: Chaka Frye on 78-44-1517Szlmeybbchy (Bld) [#/Vol]2.3 10*3/uL1.00-4.8[facility] CenterLymphocytes/100 WBC Auto (Bld)Ordered By: Chaka Frye on 31-87-3118Vkddmwxspts/100 WBC (Bld)30.8 %.[facility] Auto (RBC) [Entitic mass]Ordered By: Chaka Frye on 20-60-3889UVM (RBC) [Entitic mass]32.2 pg24.7-34.3FSelect Medical Cleveland Clinic Rehabilitation Hospital, BeachwoodMCHC Auto (RBC) [Mass/Vol]Ordered By: Chaka Frye on 59-84-2758TWKN (RBC) [Mass/Vol]32.8 g/dL32.0-35.0[facility] CenterMCV Auto (RBC) [Entitic vol] Ordered By: Chaka Frye on 34-01-6893OFL (RBC) [Entitic vol]98.1 fL 80-100Prem[facility] CenterMagnesium [Mass/volume] in Serum or PlasmaOrdered By: Chaka Frye on 18-25-0060Yfbndimxp [Mass/Vol]1.9 mg/dL 1.9-2.7FSelect Medical Cleveland Clinic Rehabilitation Hospital, BeachwoodMonocytes Auto (Bld) [#/Vol]Ordered By: Chaka Frye on 25-66-5843Arzhzawul (Bld) [#/Vol]0.8 10*3/uL0.0-0.8 [facility] CenterMonocytes/100 WBC Auto (Bld)Ordered By: Chaka Frye on 11-22-8658Bcabckbya/100 WBC (Bld)11.0 %.[facility] CenterNeutrophils Auto (Bld) [#/Vol]Ordered By: Chaka Frye on 52-26-1453Hvqiwdqjptp (Bld) [#/Vol]3.9 10*3/uL1.8-7.7FSelect Medical Cleveland Clinic Rehabilitation Hospital, BeachwoodNeutrophils/100 WBC Auto (Bld)Ordered By: Chaka Frye on 68-25-2344Rpesguyjkgd/100 WBC (Bld)52.5 %.[facility] CenterNo Panel InformationOrdered By: Chaka Frye on 11-12-2023 Estimated GFR (CKD-EPI)> 60.0 mL/MinPremier Health Upper Valley Medical CenterPharmacy Creatinine Clearance (Chem63.39[facility] CenterNucleated erythrocytes [Presence] in Blood by Automated countOrdered By: Chaka Frye on 85-22-8377Klmffoufj RBC Auto Ql (Bld)0.1 /100{WBC}0-0.5FSelect Medical Cleveland Clinic Rehabilitation Hospital, BeachwoodPlatelet mean volume Auto (Bld) [Entitic vol]Ordered By: Chaka Frye on 88-00-9031Frswkcrf mean volume (Bld) [Entitic vol]9.1 fL 6.3-10.7FSelect Medical Cleveland Clinic Rehabilitation Hospital, BeachwoodPlatelets Auto (Bld) [#/Vol]Ordered By: Chaka Frye on 87-98-0983Qkofpwpfs (Bld) [#/Vol]155 10*3/rD586-476 [facility] CenterPotassium [Moles/volume] in Serum or Plasma Ordered By: Chaka Frye on 67-28-9743Oqvjnvtns [Moles/Vol]4.4 mmol/L 3.5-5.1FSelect Medical Cleveland Clinic Rehabilitation Hospital, BeachwoodRBC Auto (Bld) [#/Vol]Ordered By: Chaka Frye on 86-02-0781GIU (Bld) [#/Vol]4.54 10*6/uL3.60-5.00[facility] Hospitalerum or plasma anion gap determinationOrdered By: Chaka Frye on 90-04-3219Qyfdv gap [Moles/Vol]10.4 mmol/L6.0-15.0 [facility] Hospitalodium [Moles/volume] in Serum or PlasmaOrdered By: Chaka Frye on 08-70-7697Feqeef [Moles/Vol]139 mmol/T856-417 [facility] CenterUrea nitrogen [Mass/volume] in Serum or Plasma Ordered By: Chaka Frye on 67-95-8590Egql nitrogen [Mass/Vol]18 mg/dL 7-25Prem[facility] CenterWBC Auto (Bld) [#/Vol]Ordered By: Chaka Frye on 10-68-2618SNN (Bld) [#/Vol]7.4 10*3/uL3.8-11.6FSelect Medical Cleveland Clinic Rehabilitation Hospital, BeachwoodGlucose mean value [Mass/volume] in Blood Estimated from glycated hemoglobinOrdered By: Jluis Campos on 30-77-8168Fxjcikv glucose Estimated from glycated hemoglobin (Bld) [Mass/Vol]143 mg/dLPremier Health Upper Valley Medical Center Hemoglobin A1c percentageOrdered By: Jluis Campos on 38-18-4521UlV4u (Bld) [Mass fraction]6.6 %High4.3-5.6FSelect Medical Cleveland Clinic Rehabilitation Hospital, BeachwoodComment on above: Increased risk for diabetes: 5.7 - 6.4diabetes: >6.4glycemic control for adults with diabetes: <7.0LACTATE AND PYRUVATEon 48-17-3579MPSZPK ACID, PLASMA.NOMS HealthcareComment on above:Test not performed. Supernatant is required. CONTACTED YOUR FACILity on 11-05-2023 PYRUVIC ACID, BLOOD.NOMS HealthcareComment on above:Test not performedNOCitizens Memorial HealthcareNo Panel InformationOrdered By: Kirt Renae on 58-10-4189DWV Antibody 0.2 AI0.0-0.9[facility] Hospitalerum Sushma-1 extractable nuclear antibody assay (units/volume)Ordered By: Kirt Renae on 86-43-7967Qi-1 extractable nuclear Ab Qn (S)<0.2 AI0.0-0.9[facility] Comment on above:Performed at: [facility] TechnologiesB[facility] HospitalMcycij[address] [place] [id number] Director: Yuri Osullivan PhD, Phone: [phone] Sjogrens syndrome-A extractable nuclear antibody assay (units/volume)Ordered By: Kirt Renae on 87-06-5742Hwqvkrhw syndrome-A extractable nuclear Ab Qn (S)<0.2 AI 0.0-0.9[facility] Hospitalerum Sjogrens syndrome-B extractable nuclear antibody assay (units/volume)Ordered By: Kirt Renae on 11-11-2023 Sjogrens syndrome-B extractable nuclear Ab Qn (S)<0.2 AI0.0-0.9[facility] Hospitalerum or plasma thyroglobulin antibody assay (units/volume)Ordered By: Kirt Renae on 06-99-7966Hgamatmhbwwwn Ab Qn[IU]/mL 0.0-0.9[facility] CenterComment on above:Thyroglobulin Antibody measured by Mami CoulterMethodologyIt should be noted that the presence of thyroglobulinantibodies may not be pathogenic nor diagnostic, especiallyat very low levels. The assay turf farmer has found thatfour percent of individuals without evidence of thyroiddisease or autoimmunity will have positive TgAb levels upto 4 IU/mL.Performed at: [facility] HospitalMjtgjw[address] [place], [place] [id number] Director: Yuri Osullivan PhD, Phone: [phone] or plasma thyroperoxidase antibody assay (units/volume)Ordered By: Kirt Renae on 12-70-2705CRH Ab Qn[IU]/mL0-34[facility] CenterThyroxine (T4) free [Mass/volume] in Serum or PlasmaOrdered By: Kirt Renae on 41-05-6669Bcxm T4 [Mass/Vol]0.83 ng/dL0.61-1.12[facility] Triiodothyronine (T3) Free [Mass/volume] in Serum or PlasmaOrdered By: Kirt Renae on 18-18-8263Gpgd T3 [Mass/Vol]2.60 pg/mL2.50-3.90[facility] CenterAlanine aminotransferase [Enzymatic activity/volume] in Serum or PlasmaOrdered By: Rl Villavicencio on 77-65-1387GEL [Catalytic activity/Vol]19 U/L 7-52[facility] CenterAlbumin [Mass/volume] in Serum or Plasma by Bromocresol green (BCG) dye binding methoOrdered By: Rl Villavicencio on 11-10-2023 Albumin BCG dye [Mass/Vol]4.2 g/dL3.5-5.7FSelect Medical Cleveland Clinic Rehabilitation Hospital, Beachwood Alkaline phosphatase [Enzymatic activity/volume] in Serum or PlasmaOrdered By: Rl Villavicencio on 80-60-4818PWT [Catalytic activity/Vol]60 U/J17-829RykriswxfPremier Health Upper Valley Medical CenterAspartate aminotransferase [Enzymatic activity/volume] in Serum or PlasmaOrdered By: Rl Villavicencio on 23-88-2720DLD [Catalytic activity/Vol]29 U/K62-90ZtourqirzPremier Health Upper Valley Medical CenterBacteria [Presence] in Urine by AutomatedOrdered By: Rl Villavicencio on 88-76-7694Lmititzl Auto Ql (U)1+ [HPF]HighNone SeenPremier Health Upper Valley Medical CenterBasophils Auto (Bld) [#/Vol] Ordered By: Rl Villavicencio on 90-73-0948Lgdmekipu (Bld) [#/Vol]0.1 10*3/uL0.0-0.2 [facility] CenterBasophils/100 WBC Auto (Bld)Ordered By: Rl Villavicencio on 43-27-0128Oxnggfpsm/100 WBC (Bld)0.9 %.[facility] CenterBilirubin Test strip Ql (U)Ordered By: Rl Villavicencio on 32-23-4198Sxqnzhgjo Ql (U)NegativeNegativePremier Health Upper Valley Medical CenterBilirubin.total [Mass/volume] in Serum or PlasmaOrdered By: Rl Villavicencio on 97-78-5633Hpcblmkdn [Mass/Vol]0.4 mg/dL0.3-1.0[facility] CenterC reactive protein [Mass/volume] in Serum or PlasmaOrdered By: Kirt Renae on 36-55-3435UYY [Mass/Vol]< 0.5 mg/dL0.0-0.5FSelect Medical Cleveland Clinic Rehabilitation Hospital, BeachwoodCalcium [Mass/volume] in Serum or PlasmaOrdered By: Rl Villavicencio on 79-85-9361Cyuqqjc [Mass/Vol]9.6 mg/dL8.6-10.3FSelect Medical Cleveland Clinic Rehabilitation Hospital, BeachwoodCarbon dioxide, total [Moles/volume] in Serum or PlasmaOrdered By: Rl Villavicencio on 40-03-9711CM1 [Moles/Vol]25.4 mmol/L21.0-31.0[facility] CenterChloride [Moles/volume] in Serum or PlasmaOrdered By: Rl Villavicencio on 17-38-0071Qtqkcxck [Moles/Vol]105 mmol/A64-840BzpodzkauPremier Health Upper Valley Medical CenterColor Auto (U) Ordered By: Rl Villavicencio on 44-96-4799Uhpsa (U)Light-yellowYellowPremier Health Upper Valley Medical CenterCreatine kinase [Enzymatic activity/volume] in Serum or PlasmaOrdered By: Rl Villavicencio 69-89-2497HD [Catalytic activity/Vol]69 U/L 30-223[facility] CenterCreatinine [Mass/volume] in Serum or PlasmaOrdered By: Rl Villavicencio 99-45-0490Qooxxsklew [Mass/Vol]0.93 mg/dL 0.60-1.20[facility] CenterEosinophils Auto (Bld) [#/Vol]Ordered By: Rl Villavicencio on 84-89-0816Yvunjyzxpqc (Bld) [#/Vol]0.3 10*3/uL0.0-0.45 [facility] CenterEosinophils/100 WBC Auto (Bld)Ordered By: lR Villavicencio on 09-43-7109Vrdkzffxtll/100 WBC (Bld)3.7 %.[facility] CenterEpithelial cells.squamous [#/area] in Urine sediment by Automated countOrdered By: Rl Villavicencio on 26-08-0903Dpqpyabxsr cells.squamous Auto (Urine sed) [#/Area]5-9 [HPF]High0-2FSelect Medical Cleveland Clinic Rehabilitation Hospital, BeachwoodErythrocyte distribution width Auto (RBC) [Ratio]Ordered By: Rl Villavicencio on 11-10-2023 Erythrocyte distribution width (RBC) [Ratio]13.5 %11.9-15.3FSelect Medical Cleveland Clinic Rehabilitation Hospital, BeachwoodErythrocyte sedimentation rate by Photometric methodOrdered By: Kirt Renae on 05-58-4875DGG Photometric method (Bld) [Velocity]40 mm/hrHigh 0-29Prem[facility] CenterErythrocytes [#/area] in Urine sediment by Automated countOrdered By: Rl Villavicencio on 82-35-1902HLW Auto (Urine sed) [#/Area]5-9 [HPF]High04FSelect Medical Cleveland Clinic Rehabilitation Hospital, BeachwoodFolate [Mass/volume] in Serum or PlasmaOrdered By: Kirt Renae on 68-79-7083Dascsr [Mass/Vol]19.6 ng/mL>5.9[facility] CenterComment on above:Folate reference range: >5.9 ng/mlThe WHO technical consultation on folate and vitamin v50fyepwmt ncies has determined that folate concentrations lessthan 4 ng/ml are considered deficient.Globulin Calc (S) [Mass/Vol]Ordered By: Rl Villavicencio on 11-10-2023 Globulin (S) [Mass/Vol]2.9 g/dLPremier Health Upper Valley Medical CenterGlucose [Mass/volume] in Serum or PlasmaOrdered By: Rl Villavicencio on 17-37-7350Crjazjq [Mass/Vol]95 mg/hY48-192XhvjydqviPremier Health Upper Valley Medical CenterComment on above:ADA recommended reference rangeRandom Glucose Reference Range is dependent on time and content of last meal. Glucose of more than 200 mg/dL in a nonstressed, ambulatory subject supports the diagnosisof Diabetes Mellitus.Glucose [Mass/volume] in Urine by Test stripOrdered By: Rl Villavicencio on 11-10-2023 Glucose Test strip (U) [Mass/Vol]1000 mg/dLHighNormWVUMedicine Harrison Community HospitalHematocrit Auto (Bld) [Volume fraction]Ordered By: Rl Villavicencio on 91-07-3895Xdkezzjqtp (Bld) [Volume fraction]44.9 %34.0-46.4FSelect Medical Cleveland Clinic Rehabilitation Hospital, BeachwoodHemoglobin Test strip Ql (U)Ordered By: Rl Villavicencio on 11-10-2023 Hemoglobin Ql (U)NegativeNegMercy Health Tiffin HospitalHemoglobin [Mass/volume] in BloodOrdered By: Rl Villavicencio on 82-68-6724Iikqullkir (Bld) [Mass/Vol]15.0 g/dL11.8-15.4FSelect Medical Cleveland Clinic Rehabilitation Hospital, BeachwoodHyaline casts [#/area] in Urine sediment by Automated countOrdered By: Rl Villavicencio on 87-42-2891Ggntixs casts Auto (Urine sed) [#/Area]None [LPF]0-8[facility] CenterKetones Test strip Ql (U)Ordered By: Rl Villavicencio on 11-10-2023 Ketones Ql (U)NegativeNegMercy Health Tiffin HospitalLeukocyte clumps [Presence] in Urine by AutomatedOrdered By: Rl Villavicencio on 19-04-7739Ebrjlqeyy clumps Auto Ql (U)Occasional [LPF]HighNone [facility] Leukocyte esterase [Presence] in Urine by Test stripOrdered By: Rl Villavicencio on 33-07-6556Ggjmqamwq esterase Test strip Ql (U)4+HighNegMercy Health Tiffin HospitalLeukocytes [#/area] in Urine sediment by Automated countOrdered By: Rl Villavicencio on 86-74-8331ZNQ Auto (Urine sed) [#/Area]20-49 [HPF]High0-4 [facility] CenterLeukocytes [#/volume] corrected for nucleated erythrocytes in Blood by Automated counOrdered By: Rl Villavicencio on 96-37-6027QFS corrected for nucl RBC Auto (Bld) [#/Vol]8.5 10*3/uL3.8-11.6FSelect Medical Cleveland Clinic Rehabilitation Hospital, BeachwoodLymphocytes Auto (Bld) [#/Vol]Ordered By: Rl Villavicencio on 44-40-1340Njqlxvpkith (Bld) [#/Vol]2.2 10*3/uL1.00-4.8[facility] CenterLymphocytes/100 WBC Auto (Bld)Ordered By: Rl Villavicencio on 11-10-2023 Lymphocytes/100 WBC (Bld)26.0 %.[facility] CenterH Auto (RBC) [Entitic mass]Ordered By: Rl Villavicencio on 09-45-2811XRE (RBC) [Entitic mass]32.6 pg24.7-34.3FSelect Medical Cleveland Clinic Rehabilitation Hospital, BeachwoodMCHC Auto (RBC) [Mass/Vol]Ordered By: Rl Villavicencio on 52-05-3859IJVI (RBC) [Mass/Vol]33.3 g/dL32.0-35.0[facility] CenterMCV Auto (RBC) [Entitic vol]Ordered By: Rl Villavicencio on 52-68-5470VRK (RBC) [Entitic vol]97.8 vA31-548VsesnuycyPremier Health Upper Valley Medical Center Magnesium [Mass/volume] in Serum or PlasmaOrdered By: Rl Villavicencio on 11-10-2023 Magnesium [Mass/Vol]1.7 mg/dLLow1.9-2.7FSelect Medical Cleveland Clinic Rehabilitation Hospital, BeachwoodMonocyte distribution width [Entitic volume] in Blood by AutomatedOrdered By: Rl Villavicencio on 65-48-3897Xprjjzbm distribution width Auto (Bld) [Entitic vol]19.74 % 0.00-20.00[facility] CenterMonocytes Auto (Bld) [#/Vol]Ordered By: Rl Villavicencio on 63-27-0331Wtqvacymv (Bld) [#/Vol]0.7 10*3/uL0.0-0.8[facility] CenterMonocytes/100 WBC Auto (Bld)Ordered By: Rl Villavicencio on 84-31-4983Rfiutgqkw/100 WBC (Bld)8.2 %.[facility] Neutrophils Auto (Bld) [#/Vol]Ordered By: Rl Villavicencio on 61-24-5758Ykcumfnjnyq (Bld) [#/Vol]5.2 10*3/uL1.8-7.7FSelect Medical Cleveland Clinic Rehabilitation Hospital, BeachwoodNeutrophils/100 WBC Auto (Bld)Ordered By: Rl Villavicencio on 43-70-3140Czkrrzytoys/100 WBC (Bld) 61.2 %.[facility] CenterNitrite Test strip Ql (U)Ordered By: Rl Villavicencio on 00-42-5930Spzbbqk Ql (U)NegativeNegMercy Health Tiffin HospitalNo Panel InformationOrdered By: Kirt Renae on 86-21-8101Pycgwku Glucose CommentGlu2: cleaned meterPremier Health Upper Valley Medical CenterNo Panel InformationOrdered By: Rl Villavicencio on 02-35-2739Bxzvpvgga GFR (CKD-EPI)> 60.0 mL/MinPremier Health Upper Valley Medical CenterPharmacy Creatinine Clearance (Chem66.28 [facility] CenterNucleated erythrocytes [Presence] in Blood by Automated countOrdered By: Rl Villavicencio on 88-83-2282Iuqblpzpd RBC Auto Ql (Bld) 0.1 /100{WBC}0-0.5FSelect Medical Cleveland Clinic Rehabilitation Hospital, BeachwoodPlatelet mean volume Auto (Bld) [Entitic vol]Ordered By: Rl Villavicencio on 84-12-5607Trbfojdg mean volume (Bld) [Entitic vol]8.7 fL6.3-10.7FSelect Medical Cleveland Clinic Rehabilitation Hospital, BeachwoodPlatelets Auto (Bld) [#/Vol]Ordered By: Rl Villavicencio on 70-16-4998Kazhxxvbu (Bld) [#/Vol]149 10*3/cPJuq273-916FajgtjkeuPremier Health Upper Valley Medical CenterPotassium [Moles/volume] in Serum or PlasmaOrdered By: Rl Villavicencio on 22-75-0465Xxqmsxsqf [Moles/Vol]4.6 mmol/L3.5-5.1FSelect Medical Cleveland Clinic Rehabilitation Hospital, BeachwoodComment on above:Hemolysis is present at a level that could interfere with the result.Contact lab if redraw is requiredProtein Test strip (U) [Mass/Vol]Ordered By: Rl Villavicencio on 11-10-2023 Protein (U) [Mass/Vol]NegativeNegMercy Health Tiffin HospitalProtein [Mass/volume] in Serum or PlasmaOrdered By: Rl Villavicencio on 33-39-5043Stbifcg [Mass/Vol]7.1 g/dL6.4-8.9[facility] CenterRBC Auto (Bld) [#/Vol] Ordered By: Rl Villavicencio on 64-06-4003CFE (Bld) [#/Vol]4.59 10*6/uL3.60-5.00 [facility] Hospitalerum or plasma albumin/globulin mass ratio Ordered By: Rl Villavicencio on 38-45-9529Vjphoea/Globulin [Mass ratio]1.4 {ratio} [facility] Hospitalerum or plasma anion gap determinationOrdered By: Rl Villavicencio on 25-48-3083Qqbua gap [Moles/Vol]11.2 mmol/L6.0-15.0[facility] Hospitalodium [Moles/volume] in Serum or PlasmaOrdered By: Rl Villavicencio on 45-90-4729Bvclwo [Moles/Vol]137 mmol/U556-853LvhxtqrnnPomerene Hospitalpecific gravity Test strip (U) [Rel density]Ordered By: Rl Villavicencio on 56-11-8609Exouvfyl gravity (U) [Rel density]1.0071.001-1.030[facility] CenterThyrotropin [Units/volume] in Serum or PlasmaOrdered By: Jluis Campos on 14-25-4124SZR Qn5.73 m[IU]/LHigh0.45-5.33[facility] CenterUrea nitrogen [Mass/volume] in Serum or PlasmaOrdered By: Rl Villavicencio on 82-62-3140Suvh nitrogen [Mass/Vol]14 mg/dL7-25Prem[facility] CenterUrine appearanceOrdered By: Rl Villavicencio on 22-00-2923Bgqemqljix (U)Clear ClearPremier Health Upper Valley Medical CenterUrine culture routineOrdered By: Rl Villavicencio on 97-25-5315Dkzsjzwn identified Cx Nom (U)2 DaysPremier Health Upper Valley Medical CenterUrobilinogen Test strip (U) [Mass/Vol]Ordered By: Rl Villavicencio on 07-50-4877Smytfoqmchxi (U) [Mass/Vol]Normal mg/dLNormalPremier Health Upper Valley Medical CenterVitamin B12 ser/plasOrdered By: Kirt Renae on 11-10-2023 Cobalamin (Vitamin B12) [Mass/Vol]306 pg/bN726-746BxrtxumohPremier Health Upper Valley Medical CenterVitamin D+Metabolites [Mass/volume] in Serum or PlasmaOrdered By: Jluis Campos on 38-72-3012Owqsjcq D+Metabolites [Mass/Vol]61.3 ng/uW48-224DisdeoxagPremier Health Upper Valley Medical CenterComment on above:Hemolysis is present at [...] Auto (Bld) [#/Vol]Ordered By: Rl Villavicencio on 23-70-3353XCH (Bld) [#/Vol]8.5 10*3/uL 3.8-11.6FSelect Medical Cleveland Clinic Rehabilitation Hospital, BeachwoodpH Test strip (U)Ordered By: Rl Villavicencio on 85-97-8739mL (U)6.0 [pH]5.0-9.0[facility] CenterGlucose Glucometer (BldC) [Mass/Vol]Ordered By: OSORIO WHITE on 64-87-3755Gpyhmlj [Mass/Vol]139 mg/dLPremier Health Upper Valley Medical CenterComment on above:Random Glucose Reference Range is dependent on time and content of last meal. Glucose of more than 200 mg/dL in a nonstressed, ambulatory subject supports the diagnosis of Diabetes Mellitus.Carbon dioxide, total [Moles/volume] in Serum or PlasmaOrdered By: Jonas Ch on 34-25-4585YQ5 [Moles/Vol]28.6 mmol/L 21.0-31.0[facility] CenterChloride [Moles/volume] in Serum or PlasmaOrdered By: Jonas Ch on 08-79-0019Sdwixjvg [Moles/Vol]104 mmol/L 98-107Prem[facility] Medical CenterPotassium [Moles/volume] in Serum or PlasmaOrdered By: Jonas Ch on 55-73-3485Cbalplazf [Moles/Vol]4.6 mmol/L 3.5-5.1FCincinnati Children's Hospital Medical Centererum or plasma anion gap determination Ordered By: Jonas Ch on 19-60-7909Jpvvl gap [Moles/Vol]11.0 mmol/L 6.0-15.0[facility] Hospitalodium [Moles/volume] in Serum or PlasmaOrdered By: Jonas Ch on 19-31-3385Koprhm [Moles/Vol]139 mmol/L 136-145Prem[facility] Medical CenterAlanine aminotransferase [Enzymatic activity/volume] in Serum or PlasmaOrdered By: Oz Kincaid on 01-92-1440WAB [Catalytic activity/Vol]23 U/L7-52Prem[facility] Medical CenterAlbumin [Mass/volume] in Serum or PlasmaOrdered By: Oz Kincaid on 36-95-6768Vcvwnam [Mass/Vol]4.2 g/dL2.9-4.4FSelect Medical Cleveland Clinic Rehabilitation Hospital, BeachwoodAlbumin/Protein.total in 24 hour Urine by ElectrophoresisOrdered By: Oz Kincaid on 93-76-9319Kzhfxok Elph (24H U) [Mass fraction]35.7 %.[facility] CenterAlpha tocopherol [Mass/volume] in Serum or PlasmaOrdered By: Oz Kincaid on 10-30-2023 Alpha tocopherol [Mass/Vol]8.7 mg/LLow9.0-29.0[facility] Comment on above:This test was developed and its performance characteristicsdetermined by [employer]. It has not been cleared orapproved by the Food and Drug Administration.Aspartate aminotransferase [Enzymatic activity/volume] in Serum or PlasmaOrdered By: Oz Kincaid on 67-14-6275MOI [Catalytic activity/Vol]26 U/X98-29DfvrzbyubPremier Health Upper Valley Medical CenterBorrelia burgdorferi Ab [Interpretation] in SerumOrdered By: Oz Kincaid on 10-30-2023. burgdorferi Ab (S) [Interp]N/[facility] OhioBorrelia burgdorferi IgG Ab [Presence] in Serum or Plasma by ImmunoassayOrdered By: Oz Kincaid on 10-30-2023. burgdorferi IgG IA QlN/[facility] [place] Borrelia burgdorferi IgG+IgM Ab [Presence] in Serum by ImmunoassayOrdered By: Oz Kincaid on 10-30-2023. burgdorferi IgG+IgM IA Ql (S)NegativeNegativePremier Health Upper Valley Medical CenterComment on above:Lyme antibodies not detected. Reflex testing is notindicated.No laboratory evidence of infection with B. burgdorferi(Lyme disease). Negative results may occur in patientsrecently infected (less than or equal to 14 days) with B.burgdorferi. If recent infection is suspected, repeattesting on a new sample collected in 7 to 14 days isrecommended.Performed at: [facility] [id number] Director: Yuri Osullivan PhD, Phone: [phone] antibodies not detected. Reflex testing is notindicated.No laboratory evidence of infection with B. burgdorferi(Lyme disease). Negative results may occur in patientsrecently infected (less than or equal to 14 days) with B.burgdorferi. If recent infection is suspected, repeattesting on a new sample collected in 7 to 14 days isrecommended.Performed at: [facility] [id number] Director: Yuri Osullivan PhD, Phone: [employer] Lyme antibodies not detected.Reflex testing is notindicated.No [...] collected in7 to 14 days isrecommended.Performed at: [facility] [place] [id number] Director: Yuri Osullivan PhD, Phone: [phone] burgdorferi IgM Ab [Presence] in Serum or Plasma by ImmunoassayOrdered By: Oz Kincaid on 10-30-2023. burgdorferi IgM IA QlN/A [facility] CenterC reactive protein [Mass/volume] in Serum or Plasma by High sensitivity methodOrdered By: Oz Kincaid on 85-94-0668ERG High sensitivity method [Mass/Vol]2.2 mg/LHigh0.0-0.9[facility] CenterComment on above:Cardiovascular Risk Classification (AHA/CDC)hsCRP [...] CVD risk.CT biopsyOrdered By: Oz Kincaid on 02-11-7948TP biopsy5.0 U/L3.3-10.3FSelect Medical [facility] [place] Comment on above:Performed at: [facility] [place] [id number] Director: Yuri Osullivan PhD, Phone: [phone] kinase [Enzymatic activity/volume] in Serum or PlasmaOrdered By: Oz Kincaid on 10-30-2023 CK [Catalytic activity/Vol]46 U/Y59-940OpxccofcdPremier Health [facility] Medical Center Erythrocyte sedimentation rate by Photometric methodOrdered By: Oz Kincaid on 93-29-2765CYZ Photometric method (Bld) [Velocity]26 mm/hr0-29[facility] CenterFolate [Mass/volume] in Serum or PlasmaOrdered By: Oz Kincaid on 72-42-7636Arkbbp [Mass/Vol]34.0 ng/mL>5.9[facility] Comment on above:Folate reference range: >5.9 ng/mlThe WHO technical consultation on folate and vitamin w87stnpotpzbgeb has determined that folate concentrations lessthan 4 ng/ml are considered deficient.Gamma globulin/Protein.total in 24 hour Urine by ElectrophoresisOrdered By: Oz Kincaid on 30-62-6911Kbbxe globulin Elph (24H U) [Mass fraction]23.2 %.[facility] CenterGamma-tocopherol measurement (mass/volume)Ordered By: Oz Kincaid on 45-43-0690Pvdpw tocopherol [Mass/Vol]0.7 mg/L0.5-4.9[facility] CenterComment on above:This test was developed and its performance characteristicsdetermined by [employer]. It has not been cleared orapproved by the Food and Drug Administration.Reference intervals for alpha and gamma-tocopheroldetermined from National Health and Nutrition ExaminationSurvey, 0236-6280. Individuals with alpha-tocopherol levelsless than 5.0 mg/L are considered vitamin E deficient.Glucose mean value [Mass/volume] in Blood Estimated from glycated hemoglobinOrdered By: Oz Kincaid on 10-30-2023 Average glucose Estimated from glycated hemoglobin (Bld) [Mass/Vol]143 mg/dL [facility] CenterHemoglobin A1c percentageOrdered By: Oz Kincaid on 67-42-4006ZjH3u (Bld) [Mass fraction]6.6 %High4.3-5.6FSelect Medical Cleveland Clinic Rehabilitation Hospital, BeachwoodComment on above:Increased risk for diabetes: 5.7 - 6.4diabetes: >6.4glycemic control for adults with diabetes: <7.0IgA [Mass/volume] in Serum or PlasmaOrdered By: Oz Kincaid on 86-51-6585DlT [Mass/Vol]265 mg/pU75-165 [facility] CenterIgG [Mass/volume] in Serum or PlasmaOrdered By: Oz Kincaid on 25-66-3815BpN [Mass/Vol]1034 mg/yU140-0058MqccvqdeoPremier Health Upper Valley Medical CenterIgM [Mass/volume] in Serum or PlasmaOrdered By: Oz Kincaid on 25-09-9066SzS [Mass/Vol]48 mg/eF94-658TpzuwkyuaPremier Health Upper Valley Medical CenterComment on above:Performed at: [facility] [id number] Director: Yuri Osullivan PhD, Phone: [phone] for UrineOrdered By: Oz Kincaid on 71-47-4477Balhihohmmsbrk Immunofixation (U) [Interp]See comment.[facility] CenterComment on above:No monoclonality detected.Performed at: [facility]DineInTimeB[facility] HospitalCxfgtc66[address] [place], [place] [id number] Director: Yuri Osullivan PhD, Phone: [phone] Panel InformationOrdered By: Oz Kincaid on 28-65-7479Eecd-Nuclear Antibody Comment 2See comment.[facility] CenterComment on above:Pattern Potential Disease Association Homogeneous Systemic Lupus Erythematosus, Drug Induced Systemic Lupus Erythematosus, Chronic Autoimmune hepatitis, Juvenile Idiopathic Arthritis Speckled Sjogren Syndrome, Systemic Lupus Erythematosus, Subacute Cutaneous Lupus, Lupus, Congenital Heart Block, Mixed Connective Tissue Disease, Scleroderma-diffuse, Scleroderma- Autoimmune Myositis Overlap Syndrome, Systemic Lupus Zxztbdcrlnyok-Tiaakukofgq-Gteruwlshw Myositis Overlap Syndrome, Systemic Autoimmune Rheumatic Disease, [...] Cytopenias, Linear Scleroderma, Antiphospholipid Syndrome Performed at: [facility] [address] [id number] Director: Christine Pham MD, Phone: [phone] at: [facility] LabsBr[facility] [place] [id number] [place], [place] [id number] Director: Yuri Osullivan PhD, Phone: [phone] Potential Disease Association Homogeneous Systemic Lupus Erythematosus, Drug Induced Systemic Lupus Erythematosus, Chronic Autoimmune hepatitis, Juvenile Idiopathic Arthritis Speckled Sjogren Syndrome, Systemic Lupus Erythematosus, Subacute Cutaneous Lupus, Lupus, Congenital Heart Block, Mixed Connective Tissue Disease, Scleroderma-diffuse, Scleroderma- Autoimmune Myositis Overlap Syndrome, Systemic Lupus Mdwfyykiockuz-Hbftvojbohg-Wezumpyjup Myositis Overlap Syndrome, Systemic Autoimmune Rheumatic Disease, [...] Cytopenias, Linear Scleroderma, Antiphospholipid Syndrome Performed at: [facility] [employer] [id number] Director: Christine Pham MD, Phone: [phone] at: [address] [id number] Director: Yuri Osullivan PhD, Phone: [phone] Pattern Potential Disease Association Homogeneous Systemic Lupus Erythematosus, Drug Induced Systemic Lupus Erythematosus, Chronic Autoimmune hepatitis, Juvenile Idiopathic Arthritis Speckled Sjogren Syndrome, Systemic Lupus Erythematosus, Subacute Cutaneous Lupus, Lupus, Congenital Heart Block, Mixed ConnectiveTissue Disease, Scleroderma-diffuse, Scleroderma- Autoimmune Myositis Overlap Syndrome, Systemic Lupus Rqpysjvewusba-Kmfthtrnsqd-Sjaxxuseee Myositis Overlap Syndrome, Systemic Autoimmune Rheumatic Disease, [...] Linear Scleroderma, AntiphospholipidSyndrome Performed at: - [facility] [address] [id number] Director: Yuri Osullivan PhD, Phone: [phone] at: - [facility] [address] [place], [place] [id number] Director: Christine Scott, Phone: [phone] --- 11/06/23 1236 ---PO IFA Note 1 previously reported as: Pattern PotentialDisease Association Homogeneous Systemic Lupus Erythematosus, Drug Induced Systemic Lupus Erythematosus, Chronic Autoimmune hepatitis, Juvenile Idiopathic Arthritis Speckled Sjogren Syndrome, Systemic Lupus Erythematosus, Subacute Cutaneous Lupus, Lupus, Congenital Heart Block, Mixed Connective Tissue Disease, Scleroderma-diffuse, Scleroderma- Autoimmune Myositis Overlap Syndrome, Systemic Lupus Gvrdswgmgyhxh-Whwwquqsrxz-Vodawbunrs Myositis Overlap Syndrome, Systemic Auto immune Rheumatic [...] Linear Scleroder (more content not included)... Lactate/Pyruvate InterpretationN/[facility] OhioPlasma Lactic Acid, VenousSee comment.[facility] CenterComment on above:Test not performed. Supernatant is required.CONTACTED YOUR FACILity on 11-05-2023 Protein Electrophoresis M-SpikeNot observed g/dLNot ObservedPremier Health Upper Valley Medical CenterProtein Electrophoresis NoteSee comment.[facility] CenterComment on above:Protein electrophoresis scan will follow via computer,mail, or garden machinery mechanic delivery.Pyruvic AcidSee comment.[facility] CenterComment on above:Test not performedSerum ImmunofixationSee comment .[facility] CenterComment on above:No monoclonality detected. Urine Random Prot Electrophor NoteSee comment.[facility] Comment on above:Protein electrophoresis scan will follow via computer,mail, or garden machinery mechanic delivery.Performed at: [facility] [employer] [id number] Director: Yuri Osullivan PhD, Phone: [phone] Blood Zinc 909 ug/lEPdcx459-124RhiueklrbPremier Health [facility] Valley Medical CenterComment on above:This test was developed and its performance characteristicsdetermined by [employer]. It has not been cleared orapproved by the Food and Drug Administration.Performed at: [facility] [employer] [id number] Director: Christine Pham MD, Phone: [phone] test was developed and its performance characteristicsdetermined by [employer]. It has not been cleared orapproved by the Food and Drug Administration.Performed at: [address] [id number] Director: Christine Pham MD, Phone: [phone] This test was developed and its performance characteristicsdetermined by [employer]. It has not been cleared orapprovedby the Food and Drug Administration. --- 11/06/23 1236 ---Zinc,WB previously reported as: 909 H ug/d LThis test was developed and its performance characteristicsdetermined by [employer]. It has not been cleared orapproved by the Food and Drug Administration.Performed at: [address] [id number] Director: Christine Pham MD, Phone: [phone] [Mass/volume] in Serum or PlasmaOrdered By: Oz Kincaid on 43-16-4504Ttckdfm [Mass/Vol]7.7 g/dL6.0-8.5FSelect Medical Cleveland Clinic Rehabilitation Hospital, BeachwoodProtein [Mass/volume] in UrineOrdered By: Oz Kincaid on 32-01-7373Lqliamy (U) [Mass/Vol]28.8 mg/dLNot Estab.[facility] CenterProtein.monoclonal/Protein.total in 24 hour Urine by ElectrophoresisOrdered By: Oz Kincaid on 10-30-2023 Protein.monoclonal Elph (24H U) [Mass fraction]Not observed %Not Observed [facility] CenterReagin Ab [Presence] in Serum by RPROrdered By: Oz Kincaid on 16-92-8954Wdlxgy Ab RPR Ql (S)Non-ReactiveNon ReactivePremier Health Upper Valley Medical CenterComment on above:Performed at: [address] [id number] Director: Yuri Osullivan PhD, Phone: [phone] West Nile virus IgG antibody detection by immunoassayOrdered By: Oz Kincaid on 61-10-4104Ccly Nile virus IgG IA Ql (S)NegativeNegativePomerene Hospitalerum West Nile virus IgM antibody detection by immunoassayOrdered By: Oz Kincaid on 16-16-0719Ujrn Nile virus IgM IA Ql (S) NegativeNegativePremier Health Upper Valley Medical CenterComment on above:Performed at: - [facility] [address] [id number] Director: Christine Pham MD, Phone: [phone] globulin measurement (mass/volume) Ordered By: Oz Kincaid on 55-15-4691Vgrlblfp (S) [Mass/Vol]3.5 g/dL2.2-3.9 [facility] Hospitalerum homogeneous pattern antinuclear antibody (PO) titerOrdered By: Oz Kincaid on 45-95-4644Ameuawrweg nuclear Ab pattern (S) [Titer]N/AFCincinnati Children's Hospital Medical Centererum nuclear antibody titerOrdered By: Oz Kincaid on 32-76-4275Xrqtkrs Ab (S) [Titer]PositiveAbnormal.[facility] CenterComment on above:Negative <1:80 Borderline 1:80 Positive >1:80Serum or plasma albumin/globulin mass ratioOrdered By: Oz Kincaid on 58-03-6699Olabjxc/Globulin [Mass ratio]1.2 {ratio}0.7-1.7FCincinnati Children's Hospital Medical Centererum or plasma alpha 1 globulin measurement by electrophoresis (mass/volume)Ordered By: Oz Kincaid on 15-19-6516Zdvcf 1 globulin Elph [Mass/Vol] 0.3 g/dL0.0-0.4FCincinnati Children's Hospital Medical Centererum or plasma alpha 2 globulin measurement by electrophoresis (mass/volume)Ordered By: Oz Kincaid on 10-30-2023 Alpha 2 globulin Elph [Mass/Vol]1.0 g/dL0.4-1.0[facility] Serum or plasma beta globulin measurement by electrophoresis (mass/volume) Ordered By: Oz Kincaid on 29-83-0081Rdus globulin Elph [Mass/Vol]1.1 g/dL0.7-1.3 [facility] Hospitalerum or plasma ceruloplasmin measurement (mass/volume)Ordered By: Oz Kincaid on 60-19-3254Uualiyoncqbwc [Mass/Vol]30.1 mg/dL19.0-39.0[facility] CenterComment on above:Performed at: - [facility] [address] [id number] Director: Yuri Osullivan PhD, Phone: [phone] or plasma gamma globulin measurement by electrophoresis (mass/volume)Ordered By: Oz Kincaid on 54-60-3725Edwpm globulin Elph [Mass/Vol]1.1 g/dL0.4-1.8Pomerene Hospitalerum or plasma homocysteine measurement (moles/volume)Ordered By: Oz Kincaid on 10-30-2023 Homocysteine [Moles/Vol]20.7 umol/LHigh0.0-17.2FSelect Medical [facility] Clinic [facility], [place] Comment on above:Performed at: [facility] [employer] [id number] Director: Yuri Osullivan PhD, Phone: [phone] or plasma lutropin measurement (units/volume)Ordered By: Oz Kincaid on 64-05-5213Nxtltrvc Qn 60.4 m[IU]/mLHigh7.7-58.5FSelect Medical Cleveland Clinic Rehabilitation Hospital, BeachwoodComment on above:Adult Female Range Follicular phase 2.4 - 12.6 Ovulation phase 14.0 - 95.6 Luteal phase 1.0 - 11.4 Postmenopausal 7.7 - 58.5Serum or plasma methylmalonate measurement (moles/volume)Ordered By: Oz Kincaid on 72-73-2048Zuaxgdgqhmeaqj [Moles/Vol]247 nmol/L0-378[facility] CenterComment on above:This test was developed and its performance characteristicsdetermined by [employer]. It has not been cleared orapproved by the Food and Drug Administration.Performed at: [facility] [employer] [id number] Director: Christine Pham MD, Phone: [phone] test was developed and its performance characteristicsdetermined by [employer]. It has not been cleared orapproved by the Food and Drug Administration.Performed at: [facility] [employer] [id number] Director: Christine Pham MD, Phone: [phone] This test was developed and its performance characteristicsdetermined by [employer]. It has not been cleared orapprovedby the Food and Drug Administration. --- 11/06/23 1236 ---Methylmal Acid previously reported as: 247 nmol/LThis test was developed and its performance characteristicsdetermined by [employer]. It has notbeen cleared orapproved by the Food and Drug Administration.Performed at: [facility] [employer] [id number] Director: Christine Pham MD, Phone: [phone] or plasma pyridoxine measurement (mass/volume)Ordered By: Oz Kincaid on 88-56-6635Wyzjlqtbcr [Mass/Vol]8.8 ug/L3.4-65.2FSelect Medical Cleveland Clinic Rehabilitation Hospital, BeachwoodComment on above:This test was developed and its performance characteristicsdetermined by [employer]. It has not been cleared orapproved by the Food and Drug Administration. Deficiency: <3.4 Marginal: 3.4 - 5.1 Adequate: >5.1Performed at: [facility] [employer] [id number] Director: Christine Pham MD, Phone: [phone] or plasma rheumatoid factor measurement (units/volume)Ordered By: Oz Kincaid on 10-30-2023 Rheumatoid factor Qn[IU]/mL<14.0P[facility] Hospitalerum speckled pattern antinuclear antibody (PO) titerOrdered By: Oz Kincaid on 10-30-2023 Speckled nuclear Ab pattern (S) [Titer]1:80.[facility] Comment on above:ICAP nomenclature: AC-2,4,5,29Thyrotropin [Units/volume] in Serum or PlasmaOrdered By: Oz Kincaid on 72-20-6484JYZ Qn6.38 m[IU]/LHigh0.45-5.33 [facility] CenterThyroxine (T4) free [Mass/volume] in Serum or PlasmaOrdered By: Oz Kincaid on 47-07-8862Tmws T4 [Mass/Vol]0.89 ng/dL0.61-1.12 [facility] CenterUrine alpha 1 globulin/total protein by electrophoresisOrdered By: Oz Kincaid on 47-23-8031Epmuq 1 globulin Elph (U) [Mass fraction]0.4 %.[facility] CenterUrine alpha 2 globulin/total protein ratio by electrophoresisOrdered By: Oz Kincaid on 88-08-2138Flwsy 2 globulin Elph (U) [Mass fraction]8.9 %.[facility] CenterUrine beta globulin measurement by electrophoresis (mass/volume)Ordered By: Oz Kincaid on 99-68-0423Yric globulin Elph (U) [Mass/Vol]31.7 %.[facility] CenterVitamin B12 ser/plasOrdered By: Oz Kincaid on 85-81-3801Qxwsrmahw (Vitamin B12) [Mass/Vol]300 pg/iC397-334XhblenobmPremier Health Upper Valley Medical CenterGlucose Glucometer (BldC) [Mass/Vol]Ordered By: Elva Florian on 18-64-7762Kkalviu [Mass/Vol]134 mg/dLPremier Health Upper Valley Medical CenterComment on above:Random Glucose Reference Range is dependent on time and content of last meal. Glucose of more than 200 mg/dL in a nonstressed, ambulatory subject supports the diagnosis of Diabetes Mellitus.No Panel InformationOrdered By: Elva Florian on 20-52-1627Htmhthk Glucose CommentGlu2: cleaned meterPremier Health Upper Valley Medical CenterCholesterol [Mass/volume] in Serum or PlasmaOrdered By: Elva Florian on 86-73-2965Xajewqusnwt [Mass/Vol]125 mg/fYPih216-318IcfcmnipaPremier Health Upper Valley Medical CenterComment on above:Chol less than 200 mg/dl low riskChol 201-239 mg/dl borderline riskChol 240 mg/dl and greater high riskCholesterol in LDL Calc [Mass/Vol]Ordered By: Elva Florian on 01-23-0881Tlttvkgehqf in LDL [Mass/Vol] 59 mg/dL0-100[facility] CenterComment on above:LDL ATP III CLASSIFICATIONLDL less than 100 mg/dL OptimalLDL 100-129 mg/dL Near or above vabyzomUKW552-220 mg/dL Borderline highLDL 160-189 mg/dL HighLDL greater than 189 mg/dL Very highCholesterol in VLDL Calc [Mass/Vol]Ordered By: Elva Florian on 27-61-7167Bfybuzfqzej in VLDL [Mass/Vol]39 mg/dLPremier Health Upper Valley Medical CenterMagnesium [Mass/volume] in Serum or PlasmaOrdered By: Elva Daphnebari on 87-95-2669Pwqvkoaas [Mass/Vol]1.6 mg/dLLow1.9-2.7FCincinnati Children's Hospital Medical Centererum or plasma high density lipoprotein (HDL) cholesterol measurement Ordered By: Elva Daphnebari on 04-30-4607Zgmjiclptwj in HDL [Mass/Vol]26 mg/dL 23-92Prem[facility] CenterComment on above:HDL CHOL ATP-III CLASSIFICATION Cardiovascular RiskHDL > or equal to 60 mg/dL LOWHDL < 40 mg/dL HIGHSerum or plasma total cholesterol/high density lipoprotein (HDL) cholesterol mass ratOrdered By: Elva Daphnebari on 69-89-7937Hdnulfmiglg.total/Cholesterol in HDL [Mass ratio]4.8 {ratio}<5.0[facility] CenterThyrotropin [Units/volume] in Serum or PlasmaOrdered By: Elva Daphnebari on 88-40-5951GYZ Qn 2.48 m[IU]/L0.45-5.33[facility] Medical CenterTriglyceride [Mass/volume] in Serum or PlasmaOrdered By: Priscillamarko Daphnebari on 78-35-4022Flpdrygtddxv [Mass/Vol]198 mg/dLHigh0-149Prem[facility] CenterComment on above: TRIG ATP III CLASSIFICATIONTRIG less than 150 mg/dL NormalTRIG 150-199 mg/dL Borderline highTRIG 200-500 mg/dL High TRIG greater than 500 mg/dL Very highStandard traceable to the Center for Disease Conrtrol and Prevention (CDC) test method.Activated partial thromboplastin time (aPTT) in platelet poor plasma by coagulation aOrdered By: Edgar Valenzuela on 49-31-2651eGKU Coag (PPP) [Time] 29.3 s25.1-36.5FSelect Medical Cleveland Clinic Rehabilitation Hospital, BeachwoodComment on above:A hematocrit value greater than 55% may lead to inaccurate results in coagulation testing. Patientshaving hematocrit values >55% require a special collection tube for coagulation studies. Please contact the laboratory at [phone] for redraw instructions.Basophils Auto (Bld) [#/Vol]Ordered By: Edgar Valenzuela on 05-16-2024 Basophils (Bld) [#/Vol]0.1 10*3/uL0.0-0.2FSelect Medical Cleveland Clinic Rehabilitation Hospital, [place] Basophils/100 WBC Auto (Bld)Ordered By: Edgar Valenzuela on 02-24-9732Fricfcrzk/100 WBC (Bld)0.9 %.[facility] CenterCalcium [Mass/volume] in Serum or PlasmaOrdered By: Edgar Valenzuela on 71-80-2405Efmenrp [Mass/Vol]10.5 mg/dLHigh 8.6-10.3FSelect Medical Cleveland Clinic Rehabilitation Hospital, BeachwoodCarbon dioxide, total [Moles/volume] in Serum or PlasmaOrdered By: Edgar Valenzuela on 96-64-8562YY3 [Moles/Vol]25.0 mmol/L21.0-31.0[facility] CenterChloride [Moles/volume] in Serum or PlasmaOrdered By: Edgar Valenzuela on 78-98-8115Ahrhoxig [Moles/Vol]102 mmol/L 98-107Prem[facility] CenterCreatine kinase [Enzymatic activity/volume] in Serum or PlasmaOrdered By: Edgar Valenzuela on 80-32-0742DW [Catalytic activity/Vol]45 U/I71-450YehgngdefPremier Health Upper Valley Medical CenterCreatinine [Mass/volume] in Serum or PlasmaOrdered By: Edgar Valenzuela on 09-12-2023 Creatinine [Mass/Vol]0.84 mg/dL0.60-1.20[facility] Eosinophils Auto (Bld) [#/Vol]Ordered By: Edgar Valenzuela on 22-06-7890Vqzhwjcecuc (Bld) [#/Vol]0.2 10*3/uL0.0-0.45[facility] Eosinophils/100 WBC Auto (Bld)Ordered By: Edgar Valenzuela on 09-12-2023 Eosinophils/100 WBC (Bld)1.7 %.[facility] CenterErythrocyte distribution width Auto (RBC) [Ratio]Ordered By: Edgar Valenzuela on 09-12-2023 Erythrocyte distribution width (RBC) [Ratio]12.7 %11.9-15.3FSelect Medical Cleveland Clinic Rehabilitation Hospital, BeachwoodGlucose [Mass/volume] in Serum or PlasmaOrdered By: Edgar Valenzuela on 27-92-3304Xrpsbds [Mass/Vol]150 mg/uDOkyy42-834YmtxfedzgPremier Health Upper Valley Medical CenterComment on above:ADA recommended reference rangeRandom Glucose Reference Range is dependent on time and content of last meal. Glucose of more than 200 mg/dL in a nonstressed, ambulatory subject supports the diagnosisof Diabetes Mellitus.HbA1c HPLC (Bld) [Mass fraction]on 81-45-0598KeK6m (Bld) [Mass fraction]6.6 %[facility] Medical CenterHematocrit Auto (Bld) [Volume fraction]Ordered By: Edgar Valenzuela on 79-41-7448Olnoppujee (Bld) [Volume fraction]49.3 %High34.0-46.4FSelect Medical Cleveland Clinic Rehabilitation Hospital, BeachwoodHemoglobin [Mass/volume] in BloodOrdered By: Edgar Valenzuela on 40-90-0120Lcldsarhug (Bld) [Mass/Vol]16.9 g/xUFjih69.8-15.4FSelect Medical Cleveland Clinic Rehabilitation Hospital, BeachwoodINR in Platelet poor plasma by Coagulation assayOrdered By: Edgar Valenzuela on 05-06-8242XPD Coag (PPP) [Relative time]1.1 {INR}[facility] CenterComment on above:INR Therapeutic Range A) [...] by Automated counOrdered By: Edgar Valenzuela on 29-76-6722EML corrected for nucl RBC Auto (Bld) [#/Vol]9.8 10*3/uL3.8-11.6FSelect Medical [facility], [place] Lymphocytes Auto (Bld) [#/Vol]Ordered By: Edgar Valenzuela on 88-94-5381Sdrvvcnjtfx (Bld) [#/Vol]2.0 10*3/uL1.00-4.8[facility] Lymphocytes/100 WBC Auto (Bld)Ordered By: Edgar Valenzuela on 09-12-2023 Lymphocytes/100 WBC (Bld)20.2 %.[facility] Auto (RBC) [Entitic mass]Ordered By: Edgar Valenzuela on 77-95-6020VTY (RBC) [Entitic mass] 32.7 pg24.7-34.3FCleveland Clinic Mentor HospitalHC Auto (RBC) [Mass/Vol] Ordered By: Edgar Valenzuela on 24-38-9463UJVG (RBC) [Mass/Vol]34.2 g/dL32.0-35.0 [facility] CenterMCV Auto (RBC) [Entitic vol]Ordered By: Edgar Valenzuela on 70-68-0495HWQ (RBC) [Entitic vol]95.6 pT10-202LxhcedgdwPremier Health Upper Valley Medical CenterMonocyte distribution width [Entitic volume] in Blood by Automated Ordered By: Edgar Valenzuela on 88-00-7965Dqgismyf distribution width Auto (Bld) [Entitic vol]19.90 %0.00-20.00[facility] CenterMonocytes Auto (Bld) [#/Vol]Ordered By: Edgar Valenzuela on 96-64-9940Wtgjpsqjd (Bld) [#/Vol]0.6 10*3/uL0.0-0.8[facility] CenterMonocytes/100 WBC Auto (Bld) Ordered By: Edgar Valenzuela on 04-58-1124Irldyywdr/100 WBC (Bld)5.9 %.[facility] CenterNatriuretic peptide B [Mass/Vol]Ordered By: Edgar Valenzuela on 10-90-4337Xsncgsnmagf peptide B (Bld) [Mass/Vol]112.0 pg/mLHigh5-100 [facility] CenterNeutrophils Auto (Bld) [#/Vol]Ordered By: Edgar Valenzuela on 19-99-5658Eibdoybznum (Bld) [#/Vol]7.0 10*3/uL1.8-7.7FSelect Medical Cleveland Clinic Rehabilitation Hospital, BeachwoodNeutrophils/100 WBC Auto (Bld)Ordered By: Edgar Valenzuela on 06-57-3762Wxwbqpqddok/100 WBC (Bld)71.3 %.[facility] CenterNo Panel InformationOrdered By: Edgar Valenzuela on 74-76-8741Clgaarvmq GFR (CKD-EPI) > 60.0 mL/MinPremier Health Upper Valley Medical CenterPharmacy Creatinine Clearance (Chem73.11[facility] CenterNo Panel Informationon 09-12-2023 Bedside Zvovwlz822VhgqdvfghPremier Health Upper Valley Medical CenterNucleated erythrocytes [Presence] in Blood by Automated countOrdered By: Edgar Valenzuela on 09-12-2023 Nucleated RBC Auto Ql (Bld)0.2 /100{WBC}0-0.5FSelect Medical [facility], [place] Platelet mean volume Auto (Bld) [Entitic vol]Ordered By: Edgar Valenzuela on 02-67-0499Jxxdbsvu mean volume (Bld) [Entitic vol]9.5 fL6.3-10.7FSelect Medical Cleveland Clinic Rehabilitation Hospital, BeachwoodPlatelets Auto (Bld) [#/Vol]Ordered By: Edgar Valenzuela on 87-00-0117Xrnkvxlkt (Bld) [#/Vol]195 10*3/hF912-430YhvujjhwqPremier Health Upper Valley Medical CenterPotassium [Moles/volume] in Serum or PlasmaOrdered By: Edgar Valenzuela on 46-51-3158Xqfzxvxju [Moles/Vol]4.0 mmol/L3.5-5.1FSelect Medical Cleveland Clinic Rehabilitation Hospital, BeachwoodProthrombin time (PT)Ordered By: Edgar Valenzuela on 57-47-5950VO Coag (PPP) [Time]12.7 s9.0-12.9[facility] CenterComment on above:A hematocrit value greater than 55% may lead to inaccurate results in coagulation testing. Patientshaving hematocrit values >55% require a special collection tube for coagulation studies. Please contact the laboratory at [phone] for redraw instructions.RBC Auto (Bld) [#/Vol]Ordered By: Edgar Valenzuela on 37-09-1610QDH (Bld) [#/Vol]5.16 10*6/uLHigh3.60-5.00Pomerene Hospitalerum or plasma anion gap determinationOrdered By: Edgar Valenzuela on 14-68-4189Eebyn gap [Moles/Vol]15.0 mmol/L6.0-15.0Pomerene Hospitalodium [Moles/volume] in Serum or PlasmaOrdered By: Edgar Valenzuela on 47-04-2259Fnnybc [Moles/Vol]138 mmol/K999-366XwwocnlicPremier Health Upper Valley Medical Center Troponin I.cardiac [Mass/volume] in Serum or Plasma by Detection limit <= 0.01 ng/Ordered By: Edgar Valenzuela on 57-24-6376Fcwbpptd I.cardiac DL <= 0.01 ng/mL [Mass/Vol]7.3 pg/mL0.0-15.0[facility] CenterUrea nitrogen [Mass/volume] in Serum or PlasmaOrdered By: Edgar Valenzuela on 62-47-5633Zbxq nitrogen [Mass/Vol]11 mg/dL7-25Prem[facility] CenterWBC Auto (Bld) [#/Vol]Ordered By: Edgar Valenzuela on 85-52-1474LKV (Bld) [#/Vol]9.8 10*3/uL 3.8-11.6FSelect Medical Cleveland Clinic Rehabilitation Hospital, BeachwoodAlanine aminotransferase [Enzymatic activity/volume] in Serum or PlasmaOrdered By: Angelique Russell on 84-31-0559LYO [Catalytic activity/Vol]19 U/L7-52[facility] CenterAlbumin [Mass/volume] in Serum or Plasma by Bromocresol green (BCG) dye binding metho Ordered By: Angelique Russell on 91-79-2208Kqppoeb BCG dye [Mass/Vol]4.3 g/dL3.5-5.7 [facility] CenterAlkaline phosphatase [Enzymatic activity/volume] in Serum or PlasmaOrdered By: Barbera Yvonne on 68-84-8709EQD [Catalytic activity/Vol]81 U/W15-757BqqvouxdqPremier Health Upper Valley Medical CenterAspartate aminotransferase [Enzymatic activity/volume] in Serum or PlasmaOrdered By: Tondra Leonardous on 54-80-7913OPC [Catalytic activity/Vol]26 U/Q40-71RhhwkmkvdPremier Health Upper Valley Medical CenterBilirubin.total [Mass/volume] in Serum or PlasmaOrdered By: Tondra Yvonne on 11-40-6918Ugdyjakow [Mass/Vol]0.7 mg/dL0.3-1.0[facility] CenterCalcium [Mass/volume] in Serum or PlasmaOrdered By: Tondra Mapus on 88-09-2720Cjgqrdh [Mass/Vol]10.2 mg/dL8.6-10.3FSelect Medical Cleveland Clinic Rehabilitation Hospital, BeachwoodCarbon dioxide, total [Moles/volume] in Serum or PlasmaOrdered By: Angelique Russell on 02-26-8994RZ5 [Moles/Vol]28.6 mmol/L21.0-31.0[facility] CenterChloride [Moles/volume] in Serum or PlasmaOrdered By: Barbera Leonardous on 16-53-1429Zwctqptj [Moles/Vol]102 mmol/O52-879BzsjhswkgPremier Health Upper Valley Medical CenterCholesterol [Mass/volume] in Serum or PlasmaOrdered By: Tona Leonardous on 03-58-4795Yzioblwzwcz [Mass/Vol]143 mg/qR992-099TycsuzbmxPremier Health Upper Valley Medical CenterComment on above:Chol less than 200 mg/dl low riskChol 201-239 mg/dl borderline riskChol 240 mg/dl and greater high riskCholesterol in LDL Calc [Mass/Vol]Ordered By: Angelique Russell on 77-83-7819Kxfzcgjkhpq in LDL [Mass/Vol]62 mg/dL0-100[facility] CenterComment on above:LDL ATP III CLASSIFICATIONLDL less than 100 mg/dL OptimalLDL 100-129 mg/dL Near or above onwjtktSUN203-647 mg/dL Borderline highLDL 160-189 mg/dL HighLDL greater than 189 mg/dL Very highCholesterol in VLDL Calc [Mass/Vol]Ordered By: Angelique Russell on 64-00-7075Noncmxtnehz in VLDL [Mass/Vol]51 mg/dLPremier Health Upper Valley Medical CenterCreatinine [Mass/volume] in Serum or PlasmaOrdered By: Barbera Yvonne on 60-04-3237Hzungnkatx [Mass/Vol]0.91 mg/dL0.60-1.20[facility] CenterCreatinine [Mass/volume] in UrineOrdered By: Angelique Russell on 09-05-2023 Creatinine (U) [Mass/Vol]118.0 mg/dLPremier Health Upper Valley Medical CenterComment on above:No reference range establishedGlobulin Calc (S) [Mass/Vol]Ordered By: Angelique Russell on 73-69-9609Dwwijpnn (S) [Mass/Vol]2.7 g/dLPremier Health Upper Valley Medical CenterGlucose [Mass/volume] in Serum or PlasmaOrdered By: Angelique Russell on 25-32-9656Aihvcqw [Mass/Vol]197 mg/mFOefu11-215EiwtsthyfPremier Health Upper Valley Medical CenterComment on above:ADA recommended reference rangeRandom Glucose Reference Range is dependent on time and content of last meal. Glucose of more than 200 mg/dL in a nonstressed, ambulatory subject supports the diagnosisof Diabetes Mellitus.Microalbumin [Mass/volume] in UrineOrdered By: Angelique Russell on 38-10-9117Mrazzbr DL <= 20 mg/L (U) [Mass/Vol]18.4 mg/dLHigh0.0-1.8[facility] CenterNo Panel InformationOrdered By: Angelique Russell on 81-96-7149Akrfcavhe GFR (CKD-EPI)> 60.0 mL/MinPremier Health Upper Valley [facility] Center Pharmacy Creatinine Clearance (ChemN/[facility] OhioPotassium [Moles/volume] in Serum or PlasmaOrdered By: Angelique Russell on 09-05-2023 Potassium [Moles/Vol]4.2 mmol/L3.5-5.1FSelect Medical Cleveland Clinic Rehabilitation Hospital, BeachwoodProtein [Mass/volume] in Serum or PlasmaOrdered By: Angelique Russell on 15-79-4737Xhcejuq [Mass/Vol]7.0 g/dL6.4-8.9[facility] Hospitalerum or plasma albumin/globulin mass ratioOrdered By: Angelique Russell on 09-05-2023 Albumin/Globulin [Mass ratio]1.6 {ratio}[facility] Hospitalerum or plasma anion gap determinationOrdered By: Angelique Russell on 76-00-9171Jzetq gap [Moles/Vol]13.6 mmol/L6.0-15.0[facility] Hospitalerum or plasma high density lipoprotein (HDL) cholesterol measurementOrdered By: Angelique Russell on 81-90-9399Gfzjidmtytr in HDL [Mass/Vol]30 mg/cV67-36WopaqkecrPremier Health Upper Valley Medical CenterComment on above:HDL CHOL ATP-III CLASSIFICATION Cardiovascular RiskHDL > or equal to 60 mg/dL LOWHDL < 40 mg/dL HIGHSerum or plasma total cholesterol/high density lipoprotein (HDL) cholesterol mass ratOrdered By: Angelique Russell on 06-92-6068Uqqknghmsph.total/Cholesterol in HDL [Mass ratio]4.8 {ratio}<5.0[facility] Hospitalodium [Moles/volume] in Serum or PlasmaOrdered By: Angelique Russell on 86-72-9605Xbllxe [Moles/Vol]140 mmol/V076-004 [facility] CenterTriglyceride [Mass/volume] in Serum or Plasma Ordered By: Angelique Russell on 06-59-7334Zfzgrlxphdls [Mass/Vol]256 mg/dLHigh0-149 [facility] CenterComment on above:TRIG ATP III CLASSIFICATIONTRIG less than 150 mg/dL NormalTRIG 150-199 mg/dL Borderline highTRIG 200-500 mg/dL High TRIG greater than 500 mg/dL Very highStandard traceable to the Center for Disease Conrtrol and Prevention (CDC) test method. Urea nitrogen [Mass/volume] in Serum or PlasmaOrdered By: Angeliqeu Russell on 44-65-7165Qdcn nitrogen [Mass/Vol]12 mg/dL7-25[facility] Urine microalbumin/creatinine mass ratioOrdered By: Angelique Russell on 09-05-2023 Albumin/Creatinine DL <= 20 mg/L (U) [Mass ratio]155.0 mg/gHigh0.0-30.0[facility] CenterComment on above:30-300 mg/g indicates an increased risk for diabetic nephropathy. Greater than 300 mg/g is consistent with clinical nephropathy. (Am. J. Kidney Disease 1995, 25:107)Vitamin B12 ser/plasOrdered By: Angelique Russell on 26-04-2219Iuzvxqjid (Vitamin B12) [Mass/Vol]255 pg/nX392-233 [facility] CenterLaboratory - Hematology and Cell countson 28-55-1117DzJ3h (Bld) [Mass fraction]7.2 %[facility] CenterNo Panel Informationon 94-90-5618Qwxrsho Pxpzaps238IpmeiabjiPremier Health Upper Valley Medical CenterA1C HEMOGLOBINon 48-52-7487XkM3l (Bld) [Mass fraction]6.3 %[employer] Other Glucose - FINGER STICKon 07-03-7022Hynptkx [Mass/Vol] 196 mg/dLNonevada regional medical center DNA Guide Other HbA1c (Bld) [Mass fraction]on 23-17-2961V6G HEMOGLOBIN [employer] Other a1c HEMOGLOBINon 79-23-2607BxU4k (Bld) [Mass fraction] 6.6 %[employer] Other Glucose - FINGER STICKon 70-54-5808Sjshrug [Mass/Vol] 128 mg/dLNonevada regional medical center DNA Guide Other HbA1c (Bld) [Mass fraction]on 28-94-8611T1G HEMOGLOBIN [employer] Other A1C HEMOGLOBINon 58-92-8688CsN0q (Bld) [Mass fraction] 7.1 %[employer] Other Glucose - FINGER STICKon 18-61-7034Eokequc [Mass/Vol] 219 mg/dLNonevada regional medical center DNA Guide Other HbA1c (Bld) [Mass fraction]on 28-61-4252H3C HEMOGLOBIN [employer] Other a1c HEMOGLOBINon 69-45-8626VqO2q (Bld) [Mass fraction] 7.7 %[employer] Other Glucose - FINGER STICKon 06-73-0081Ubvwaax [Mass/Vol] 242 mg/[email or web address] DNA Guide Other HbA1c (Bld) [Mass fraction]on 62-07-9695E6O HEMOGLOBIN [employer] Other Consultation Noteon 80-81-7582Efoctlxooecb Note [id number]#1.00CD:ConstantinoSaint Luke InstituteInsurance Correspondence Officeon 77-74-4361Xusoperlr Correspondence [id number]#1.00CD:[address] [place], [place] [address]Urine culture routineOrdered By: Milo Watters on 12-19-2021 Bacteria identified Cx Nom (U)Zeny albicansPrem[facility] Health [facility] Center Albumin [Mass/volume] in Serum or PlasmaOrdered By: Milo Watters on 12-17-2021 Albumin [Mass/Vol]3.4 g/dL3.2-5.5FSelect Medical Cleveland Clinic Rehabilitation Hospital, BeachwoodAutomated erythrocytes count in urine sediment (number/area)Ordered By: Milo Watters on 96-01-7881DRL Auto (Urine sed) [#/Area]3-4 [HPF]0-4FSelect Medical Cleveland Clinic Rehabilitation Hospital, BeachwoodAutomated leukocytes count in urine sediment (number/area)Ordered By: Milo Watters on 32-88-9839PQX Auto (Urine sed) [#/Area]50-100 [HPF]0-4FSelect Medical Cleveland Clinic Rehabilitation Hospital, BeachwoodAutomated urine hyaline casts count (number/volume) Ordered By: Milo Watters on 61-22-1374Smvssew casts Auto (U) [#/Vol]None seen [LPF]0-1FSelect Medical Cleveland Clinic Rehabilitation Hospital, BeachwoodBasophils Auto (Bld) [#/Vol]Ordered By: Milo Watters on 28-16-7122Thjzdzmjk (Bld) [#/Vol]0.1 10*3/uL0.0-0.2FSelect Medical Cleveland Clinic Rehabilitation Hospital, BeachwoodBasophils/100 WBC Auto (Bld)Ordered By: Milo Watters on 48-77-6727Lhtvnfoqr/100 WBC (Bld)0.5 %.[facility] Bilirubin Test strip Ql (U)Ordered By: Milo Watters on 72-70-4745Tvqhyelws Ql (U)NegativeNegativePremier Health Upper Valley Medical CenterBlood hemoglobin measurement (mass/volume)Ordered By: Milo Watters on 14-69-3517Tpqokfyhir (Bld) [Mass/Vol] 16.1 g/dL11.8-15.4FSelect Medical Cleveland Clinic Rehabilitation Hospital, BeachwoodBlood leukocytes automated count (number/volume)Ordered By: Milo Watters on 06-43-6096DQC (Bld) [#/Vol] 10.7 10*3/uL4.5-11.0[facility] CenterCasts typing in urine sediment by light microscopyOrdered By: Milo Watters on 14-28-6621Fprrt LM Nom (Urine sed)None seen [LPF]None SeenPremier Health Upper Valley Medical CenterColor Auto (U)Ordered By: Milo Watters on 30-68-8005Hydvz (U)YellowYellowPremier Health Upper Valley Medical CenterCreatinine and Glomerular filtration rate.predicted panel (S/P/Bld)Ordered By: Milo Watters on 39-81-7793Pfjzfiyqhj [Mass/Vol]0.89 mg/dL 0.44-1.03[facility] CenterEosinophils Auto (Bld) [#/Vol]Ordered By: Milo Watters on 66-17-9876Imhlzavvgno (Bld) [#/Vol]0.1 10*3/uL0.0-0.45 [facility] CenterEosinophils/100 WBC Auto (Bld)Ordered By: Milo Watters on 37-62-4839Tqbztneqogy/100 WBC (Bld)1.0 %.[facility] CenterErythrocyte distribution width Auto (RBC) [Ratio]Ordered By: Milo Watters on 02-07-4675Teyuqjblsac distribution width (RBC) [Ratio]13.1 % 11.9-15.3FSelect Medical Cleveland Clinic Rehabilitation Hospital, BeachwoodEstimated glomerular filtration rate (GFR) non- AmericanOrdered By: Milo Watters on 17-98-4724BVF/1.73 sq M.predicted among non-blacks MDRD (S/P/Bld) [Vol rate/Area]> 60 mL/MinPremier Health Upper Valley Medical CenterGlobulin Calc (S) [Mass/Vol]Ordered By: Milo Watters on 36-87-4992Vsvcfcid (S) [Mass/Vol]3.9 g/dLPremier Health Upper Valley Medical Center Hematocrit Auto (Bld) [Volume fraction]Ordered By: Milo Watters on 12-17-2021 Hematocrit (Bld) [Volume fraction]48.5 %34.0-46.4FSelect Medical Cleveland Clinic Rehabilitation Hospital, BeachwoodKetones Auto test strip (U) [Mass/Vol]Ordered By: Milo Watters on 38-11-6789Ruwdovt (U) [Mass/Vol]NegativeNegativePremier Health Upper Valley Medical CenterLaboratory - Hematology and Cell countsOrdered By: Milo Watters on 53-65-0508Tlseliwje RBC/100 WBC (Bld) [Ratio]0.1 %0-0.5FSelect Medical Cleveland Clinic Rehabilitation Hospital, BeachwoodLymphocytes Auto (Bld) [#/Vol]Ordered By: Milo Watters on 98-06-7022Vdirozbbsve (Bld) [#/Vol]1.5 10*3/uL1.00-4.8[facility] CenterLymphocytes/100 WBC Auto (Bld)Ordered By: Milo Watters on 12-17-2021 Lymphocytes/100 WBC (Bld)14.2 %.[facility] CenterH Auto (RBC) [Entitic mass]Ordered By: Milo Watters on 58-84-0777MOW (RBC) [Entitic mass] 31.4 pg24.7-34.3FSelect Medical Cleveland Clinic Rehabilitation Hospital, BeachwoodMCHC Auto (RBC) [Mass/Vol] Ordered By: Milo Watters on 16-60-9726JRSW (RBC) [Mass/Vol]33.2 g/dL32.0-35.0 [facility] CenterMCV Auto (RBC) [Entitic vol]Ordered By: Milo Watters on 55-08-8018OSZ (RBC) [Entitic vol]94.6 vR22-449EbkpbdedrPremier Health Upper Valley Medical CenterMonocytes Auto (Bld) [#/Vol]Ordered By: Milo Watters on 29-55-8931Zcivqlunw (Bld) [#/Vol]0.8 10*3/uL0.0-0.8[facility] CenterMonocytes/100 WBC Auto (Bld)Ordered By: Milo Watters on 12-17-2021 Monocytes/100 WBC (Bld)7.5 %.[facility] CenterNeutrophils Auto (Bld) [#/Vol]Ordered By: Milo Watters on 94-91-9299Ihldfzzqoet (Bld) [#/Vol]8.2 10*3/uL1.8-7.7FSelect Medical Cleveland Clinic Rehabilitation Hospital, BeachwoodNeutrophils/100 WBC Auto (Bld) Ordered By: Milo Watters on 99-17-5252Kpniltniczi/100 WBC (Bld)76.8 %.[facility] CenterNitrite Test strip Ql (U)Ordered By: Milo Watters on 44-84-7426Nyulvqe Ql (U)NegativeNegativePremier Health Upper Valley Medical CenterNo Panel InformationOrdered By: Milo Watters on 26-27-7463Mdyydfwuw GFR ()> 60 mL/MinPremier Health Upper Valley Medical CenterComment on above:GFR estimated reference range: According to KDOQI guidelines, <60 ml/min/1.73m2 is sufficient todiagnose a patient with chronic kidney disease.Pharmacy Creatinine Clearance (Chem70.55Prem[facility] Medical CenterPlatelet mean volume Auto (Bld) [Entitic vol]Ordered By: Milo Watters on 26-48-5857Mfqyvgmm mean volume (Bld) [Entitic vol]8.7 fL6.3-10.7FSelect Medical Cleveland Clinic Rehabilitation Hospital, BeachwoodPlatelets Auto (Bld) [#/Vol]Ordered By: Milo Watters on 64-53-9383Tsfhfrcpj (Bld) [#/Vol]239 10*3/cG980-964FsdvnvtkzPremier Health Upper Valley Medical CenterProtein Auto test strip (U) [Mass/Vol]Ordered By: Milo Watters on 99-02-7158Lwkddgq (U) [Mass/Vol]Trace mg/dLNegativePremier Health Upper Valley Medical CenterProtein [Mass/volume] in Serum or PlasmaOrdered By: Milo Watters on 36-28-4478Veyvcmx [Mass/Vol]7.3 g/dL6.1-7.9 [facility] CenterRBC Auto (Bld) [#/Vol]Ordered By: Milo Watters on 73-43-9204SIW (Bld) [#/Vol]5.13 10*6/uL3.60-5.00[facility]ome[facility] Hospitalerum or plasma alanine aminotransferase measurement without P-5'-P (enzymatic activiOrdered By: Milo Watters on 45-15-8258UDS No additional P-5'-P [Catalytic activity/Vol]38 U/K28-38MdybwnfyzPomerene Hospitalerum or plasma albumin/globulin mass ratioOrdered By: Milo Watters on 12-17-2021 Albumin/Globulin [Mass ratio]0.9 {ratio}[facility] Hospitalerum or plasma alkaline phosphatase measurement (enzymatic activity/volume)Ordered By: Milo Watters on 52-78-2409ZXD [Catalytic activity/Vol]109 U/G07-44CrzmzmvvnPomerene Hospitalerum or plasma aspartate aminotransferase measurement (enzymatic activity/volume)Ordered By: Milo Watters on 12-72-7901DBO [Catalytic activity/Vol]43 U/U25-59WvxusvglyPomerene Hospitalerum or plasma calcium measurement (mass/volume)Ordered By: Milo Watters on 86-91-7375Ddplcyb [Mass/Vol]10.0 mg/dL8.2-10.2FCincinnati Children's Hospital Medical Centererum or plasma chloride measurement (moles/volume)Ordered By: Milo Watters on 12-17-2021 Chloride [Moles/Vol]102 mmol/Q82-976YtpfdytviPomerene Hospitalerum or plasma glucose measurement (mass/volume)Ordered By: Milo Watters on 12-17-2021 Glucose [Mass/Vol]231 mg/gA70-012FhhllfsfkPremier Health Upper Valley Medical CenterComment on above:ADA recommended reference range Random Glucose Reference Range is dependent on time and content of last meal. Glucose of more than 200 mg/dL in a nonstressed, ambulatory subject supports the diagnosis of Diabetes Mellitus.Serum or plasma potassium measurement (moles/volume)Ordered By: OSORIO WHITE on 54-88-8901Ipzqwhkzg [Moles/Vol]3.6 mmol/L3.5-5.1FCincinnati Children's Hospital Medical Centererum or plasma sodium measurement (moles/volume)Ordered By: Milo Watters on 18-74-5583Kvcxag [Moles/Vol]137 mmol/B739-192TshmztpbtPomerene Hospitalerum or plasma total bilirubin measurement (mass/volume)Ordered By: Milo Watters on 94-75-4744Ncwnlphir [Mass/Vol]0.8 mg/dL0.3-1.2FCincinnati Children's Hospital Medical Centererum or plasma total carbon dioxide measurement (moles/volume)Ordered By: Miol Watters on 26-18-3643FT1 [Moles/Vol]24.6 mmol/L22.0-30.0[facility] Serum or plasma urea nitrogen measurement (mass/volume)Ordered By: Milo Watters on 86-33-6168Kjvr nitrogen [Mass/Vol]8 mg/dL9-23Pomerene Hospitalpecific gravity Auto test strip (U) [Rel density]Ordered By: Milo Watters on 85-08-6499Scguvhei gravity (U) [Rel density]1.0301.001-1.030Pomerene Hospitalquamous epithelial cells detection in urine sediment by light microscopyOrdered By: Milo Watters on 81-77-9774Zumnxapzaa cells.squamous LM Ql (Urine sed)None seen [HPF]0-2FSelect Medical Cleveland Clinic Rehabilitation Hospital, BeachwoodUrine bacteria detection by automated methodOrdered By: Milo Watters on 12-17-2021 Bacteria Auto Ql (U)RareNone [facility] SouthUrine clarity by refractometry automatedOrdered By: Milo Watters on 36-41-2333Ovuhwct Refractometry automated (U)ClearClearFSelect Medical [facility] Clinic Rehabilitation Hospital, BeachwoodUrine glucose measurement by automated test strip (mass/volume)Ordered By: Milo Watters on 65-03-6485Mugqtcm Auto test strip (U) [Mass/Vol]>=1000 mg/dLUniversity Hospitals Beachwood Medical CenterUrine hemoglobin detection by automated test stripOrdered By: Milo Watters on 89-59-1954Jxdblvxjjq Auto test strip Ql (U)1+ NegativePremier Health Upper Valley Medical CenterUrine leukocyte esterase detection by automated test stripOrdered By: Milo Watters on 11-77-7137Isgdldirp esterase Auto test strip Ql (U)3+NegativePremier Health Upper Valley Medical CenterUrobilinogen Auto test strip (U) [Mass/Vol]Ordered By: Milo Watters on 12-17-2021 Urobilinogen (U) [Mass/Vol]Normal mg/dLSumma Health [facility] Yeast detection in urine sediment by light microscopyOrdered By: Milo Watters on 07-34-1890Fwwuf LM Ql (Urine sed)3+ [HPF]None [facility] SouthpH Auto test strip (U)Ordered By: Milo Watters on 83-56-7836qC (U)6.0 [pH]5.0-9.0[facility] CenterBacterial blood cultureOrdered By: Arleen Stephen on 37-51-1127Gllgbubo identified Cx Nom (Bld)NO GROWTH 5 DAYS [facility] CenterBasophils Auto (Bld) [#/Vol]Ordered By: Walter Montgomery on 76-73-2209Pkuzfwjba (Bld) [#/Vol]0.0 10*3/uL0.0-0.2FSelect Medical Cleveland Clinic Rehabilitation Hospital, BeachwoodBasophils/100 WBC Auto (Bld)Ordered By: Walter Montgomery on 08-17-2022 Basophils/100 WBC (Bld)0.1 %.[facility] CenterBlood hemoglobin measurement (mass/volume)Ordered By: Walter Montgomery on 30-52-6222Lofzxysmwp (Bld) [Mass/Vol]14.2 g/dL11.8-15.4FSelect Medical Cleveland Clinic Rehabilitation Hospital, BeachwoodBlood leukocytes automated count (number/volume)Ordered By: Walter Montgomery on 21-03-3737JAP (Bld) [#/Vol]9.4 10*3/uL4.5-11.0[facility] CenterConsultation Noteon 76-58-4049Obtoxkeudrif [id number]#1.00CD:127 [facility] HealthCreatinine and Glomerular filtration rate.predicted panel (S/P/Bld)Ordered By: Walter Montgomery on 44-03-9611Ezihqrvdif [Mass/Vol]0.75 mg/dL0.44-1.03[facility] CenterDirect bilirubin measurementOrdered By: Walter Montgomery on 49-77-7254Fyyducxvc.direct [Mass/Vol]0.2 mg/dL0.0-0.4FSelect Medical Cleveland Clinic Rehabilitation Hospital, BeachwoodEosinophils Auto (Bld) [#/Vol] Ordered By: Walter Montgomery on 90-81-4695Vvfcfbhuusu (Bld) [#/Vol]0.0 10*3/uL 0.0-0.45[facility] CenterEosinophils/100 WBC Auto (Bld)Ordered By: Walter Montgomery on 42-84-8481Naursvajtnt/100 WBC (Bld)0.0 %.[facility] CenterErythrocyte distribution width Auto (RBC) [Ratio]Ordered By: Walter Montgomery on 39-39-8754Bstwgqkawha distribution width (RBC) [Ratio]12.9 %11.9-15.3 [facility] CenterEstimated glomerular filtration rate (GFR) non- AmericanOrdered By: Walter Montgomery on 67-60-3082CXQ/1.73 sq M.predicted among non-blacks MDRD (S/P/Bld) [Vol rate/Area]> 60 mL/MinPremier Health Upper Valley Medical CenterGlucose Glucometer (BldC) [Mass/Vol]Ordered By: Wilmer Vance on 44-84-7157Zbsjqrc [Mass/Vol]230 mg/dLPremier Health Upper Valley Medical CenterComment on above:Random Glucose Reference Range is dependent on time and content of last meal. Glucose of more than 200 mg/dL in a nonstressed, ambulatory subject supports the diagnosis of Diabetes Mellitus.Hematocrit Auto (Bld) [Volume fraction]Ordered By: Walter Montgomery on 29-97-6727Fwfnmpnmcb (Bld) [Volume fraction] 41.9 %34.0-46.4FSelect Medical Cleveland Clinic Rehabilitation Hospital, BeachwoodLaboratory - Hematology and Cell countsOrdered By: Walter Montgomery on 00-63-9529Ybmktutmg RBC/100 WBC (Bld) [Ratio] 0.0 %0-0.5FSelect Medical Cleveland Clinic Rehabilitation Hospital, BeachwoodLymphocytes Auto (Bld) [#/Vol]Ordered By: Walter Montgomery on 11-40-0339Xihjjtllnur (Bld) [#/Vol]0.7 10*3/uL1.00-4.8 [facility] CenterLymphocytes/100 WBC Auto (Bld)Ordered By: Walter Montgomery on 27-96-9199Hiekamwndbv/100 WBC (Bld)7.7 %.[facility] Auto (RBC) [Entitic mass]Ordered By: Walter Montgomery on 14-77-8434CDZ (RBC) [Entitic mass]32.2 pg24.7-34.3FCleveland Clinic Mentor HospitalHC Auto (RBC) [Mass/Vol]Ordered By: Walter Montgomery on 06-51-4605NDKS (RBC) [Mass/Vol]33.9 g/dL32.0-35.0[facility] CenterMCV Auto (RBC) [Entitic vol] Ordered By: Walter Montgomery on 37-85-1116IUR (RBC) [Entitic vol]95.1 uN93-539 [facility] CenterMonocytes Auto (Bld) [#/Vol]Ordered By: Walter Montgomery on 47-85-1659Ekchwvkbm (Bld) [#/Vol]0.2 10*3/uL0.0-0.8[facility] CenterMonocytes/100 WBC Auto (Bld)Ordered By: Walter Montgomery on 12-13-2021 Monocytes/100 WBC (Bld)1.8 %.[facility] CenterNeutrophils Auto (Bld) [#/Vol]Ordered By: Walter Montgomery on 77-93-0387Klmdufwbcbf (Bld) [#/Vol]8.5 10*3/uL1.8-7.7FSelect Medical Cleveland Clinic Rehabilitation Hospital, BeachwoodNeutrophils/100 WBC Auto (Bld) Ordered By: Walter Montgomery on 66-04-9485Gusgmzbgpee/100 WBC (Bld)90.4 %.[facility] CenterNo Panel InformationOrdered By: Walter Montgomery on 12-13-2021 Estimated GFR ()> 60 mL/MinPremier Health Upper Valley Medical Center Comment on above:GFR estimated reference range: According to KDOQI guidelines, <60 ml/min/1.73m2 is sufficient todiagnose a patient with chronic kidney disease.Pharmacy Creatinine Clearance (Chem84.79[facility] CenterPlatelet mean volume Auto (Bld) [Entitic vol]Ordered By: Walter Montgomery on 90-45-4138Eccbmmpg mean volume (Bld) [Entitic vol]9.3 fL6.3-10.7FSelect Medical Cleveland Clinic Rehabilitation Hospital, BeachwoodPlatelets Auto (Bld) [#/Vol]Ordered By: Walter Montgomery on 55-88-6925Ezxfdfsng (Bld) [#/Vol]178 10*3/vU946-804CnyweapxjPremier Health Upper Valley Medical CenterRBC Auto (Bld) [#/Vol]Ordered By: Walter Montgomery on 98-28-9079DHI (Bld) [#/Vol]4.41 10*6/uL3.60-5.00Pomerene Hospitalerum or plasma chloride measurement (moles/volume)Ordered By: Walter Montgomery on 85-97-5761Lalmpphc [Moles/Vol]105 mmol/Z70-726UelwqhnrvPomerene Hospitalerum or plasma non-glucuronidated bilirubin measurement (mass/volume)Ordered By: Walter Montgomery on 95-14-0740Birwhwpec.indirect [Mass/Vol]0.5 mg/dLPomerene Hospitalerum or plasma potassium measurement (moles/volume)Ordered By: Walter Montgomery on 52-52-4459Jgnjshagn [Moles/Vol]4.4 mmol/L3.5-5.1FCincinnati Children's Hospital Medical Centererum or plasma sodium measurement (moles/volume)Ordered By: Walter Montgomery on 54-51-3730Ixhvba [Moles/Vol]137 mmol/M128-821CkeybtqekPomerene Hospitalerum or plasma total bilirubin measurement (mass/volume)Ordered By: Walter Montgomery on 22-91-5559Mblrxhvgd [Mass/Vol]0.7 mg/dL0.3-1.2FCincinnati Children's Hospital Medical Centererum or plasma total carbon dioxide measurement (moles/volume)Ordered By: Walter Montgomery on 50-24-5052YW2 [Moles/Vol]24.6 mmol/L 22.0-30.0Pomerene Hospitalerum or plasma urea nitrogen measurement (mass/volume)Ordered By: Walter Montgomery on 66-86-9829Kvda nitrogen [Mass/Vol]12 mg/dL9-23[facility] CenterActivated partial thromboplastin time (aPTT) in platelet poor plasma by coagulation aOrdered By: Walter Montgomery on 82-55-5926iQDU Coag (PPP) [Time]30.0 s25.1-36.5FSelect Medical Cleveland Clinic Rehabilitation Hospital, BeachwoodLaboratory - CoagulationOrdered By: Walter Montgomery on 15-21-2563VT Coag (PPP) [Time]14.1 s9.0-12.9[facility] Medical CenterPlatelet poor plasma international normalized ratio (INR) by coagulation assay (relatOrdered By: Walter Montgomery on 62-35-0774PRB Coag (PPP) [Relative time]1.3 {INR}[facility] CenterComment on above:INR Therapeutic Range A) [...] measurement (enzymatic activity/volume)Ordered By: Walter Montgomery on 10-33-8705XWQ [Catalytic activity/Vol]92 U/B20-30PwyhbdkwmPomerene Hospitalerum or plasma aspartate aminotransferase measurement (enzymatic activity/volume)Ordered By: Walter Montgomery on 42-22-8284CVV [Catalytic activity/Vol]22 U/X66-41KzeuyfcquPremier Health Upper Valley Medical CenterAlbumin [Mass/volume] in Serum or PlasmaOrdered By: Arleen Stephen on 09-33-2263Qwvteed [Mass/Vol]2.9 g/dL3.2-5.5FSelect Medical Cleveland Clinic Rehabilitation Hospital, BeachwoodGlobulin Calc (S) [Mass/Vol]Ordered By: Arleen Stephen on 93-05-3880Godsztgh (S) [Mass/Vol]3.0 g/dLPremier Health Upper Valley Medical CenterNo Panel InformationOrdered By: Arleen Stephen on 80-45-6974Xydlutm Glucose CommentGlu2: cleaned meterPremier Health Upper Valley Medical CenterProtein [Mass/volume] in Serum or PlasmaOrdered By: Arleen Stephen on 90-29-9289Dzliqud [Mass/Vol]5.9 g/dL6.1-7.9Pomerene Hospitalerum or plasma alanine aminotransferase measurement without P-5'-P (enzymatic activiOrdered By: Arleen Stephen on 88-50-1574SEW No additional P-5'-P [Catalytic activity/Vol]16 U/F15-62RqcipwrqqPomerene Hospitalerum or plasma albumin/globulin mass ratioOrdered By: Arlene Stephen on 95-64-2743Glnsyrn/Globulin [Mass ratio]1.0 {ratio}Pome[facility] Hospitalerum or plasma calcium measurement (mass/volume)Ordered By: Arleen Stephen on 65-16-8429Nykvsfq [Mass/Vol]9.2 mg/dL 8.2-10.2FCincinnati Children's Hospital Medical Centererum or plasma glucose measurement (mass/volume)Ordered By: Arleen Stephen on 99-24-8524Rkswzfx [Mass/Vol]204 mg/dL 70-100[facility] CenterComment on above:ADA recommended reference range Random Glucose Reference Range is dependent on time and content of last meal. Glucose of more than 200 mg/dL in a nonstressed, ambulatory subject supports the diagnosis of Diabetes Mellitus.Urine culture routineOrdered By: Tray Rosey on 59-39-8868Wzctbkxy identified Cx Nom (U)Escherichia coliPremier Health Upper Valley Medical CenterAutomated erythrocytes count in urine sediment (number/area)Ordered By: Tray Rosey on 93-95-8433CDL Auto (Urine sed) [#/Area]5-9 [HPF]0-4FSelect Medical Cleveland Clinic Rehabilitation Hospital, BeachwoodAutomated leukocytes count in urine sediment (number/area)Ordered By: Tray Morrisarthy on 19-51-9068FPC Auto (Urine sed) [#/Area]50-100 [HPF]0-4FSelect Medical Cleveland Clinic Rehabilitation Hospital, Beachwood Automated urine hyaline casts count (number/volume)Ordered By: Tray Morrisarthy on 28-96-8813Gzlwukz casts Auto (U) [#/Vol]None seen [LPF]0-1FSelect Medical Cleveland Clinic Rehabilitation Hospital, BeachwoodBilirubin Test strip Ql (U)Ordered By: Tray Jer on 05-66-5233Ctwarnuug Ql (U)NegativeNegativePrem[facility] Health [facility] Center COVID-19 Positive/NegativeOrdered By: Trayumu Randle on 66-08-3341HKZN-CoV-2 (COVID-19) N gene TEJINDER+probe Ql (Resp)NegativeNegMercy Health Tiffin HospitalComment on above:Testing for SARS-CoV-2 by RT-PCR This test was developed and its performance characteristics determined by [employer] ([employer]) and validated at the [facility]. This test has not been [...] revoked sooner.COVID-19 SOFIAOrdered By: Tray Randle on 71-78-8104NDKZ-CoV+SARS-CoV-2 (COVID-19) Ag IA.rapid Ql (Resp)NegativeNegative [facility] CenterComment on above:This is a duplicate Molly SARS Antigen (ANUP) result to be used for statistical tracking purpose only.Casts typing in urine sediment by light microscopyOrdered By: Tray Randle on 01-82-3408Fwwhm LM Nom (Urine sed)None seen [LPF]None SeenPremier Health Upper Valley Medical CenterColor Auto (U)Ordered By: Tray Randle on 02-41-8431Hfrxx (U) YellowYellowPremier Health Upper Valley Medical CenterKetones Auto test strip (U) [Mass/Vol]Ordered By: Tray Randle on 60-82-5184Rcbpxfu (U) [Mass/Vol] NegativeNegativePremier Health Upper Valley Medical CenterNitrite Test strip Ql (U) Ordered By: Tray Randle on 60-30-7192Uhlgzlx Ql (U)PositiveNegative [facility] CenterNo Panel InformationOrdered By: Tray Randle on 74-12-0918COCE Antigen (LFIA)[facility] Protein Auto test strip (U) [Mass/Vol]Ordered By: Tray Randle on 12-09-2021 Protein (U) [Mass/Vol]NegativeNegativePomerene Hospitalpecific gravity Auto test strip (U) [Rel density]Ordered By: Tray Randle on 84-72-2008Tykelabc gravity (U) [Rel density]1.0301.001-1.030Pomerene Hospitalquamous epithelial cells detection in urine sediment by light microscopyOrdered By: Tray Randle on 61-63-6481Shvczvhobz cells.squamous LM Ql (Urine sed)-19 [HPF]0-2FSelect Medical Cleveland Clinic Rehabilitation Hospital, BeachwoodTroponin I.cardiac [Mass/volume] in Serum or Plasma by High sensitivity methodOrdered By: Arleen Stephen on 34-56-0851Ypxcyevs I.cardiac High sensitivity method [Mass/Vol]5 pg/mL 0-15Prem[facility] CenterUrine bacteria detection by automated methodOrdered By: Tray Randle on 85-43-3629Vmxeccwj Auto Ql (U)4+None Seen [facility] CenterUrine clarity by refractometry automatedOrdered By: Tray Randle on 31-89-9820Qwfzhpz Refractometry automated (U)Cloudy ClearPremier Health Upper Valley Medical CenterUrine glucose measurement by automated test strip (mass/volume)Ordered By: Tray Randle on 39-87-0639Muiqyff Auto test strip (U) [Mass/Vol]>=1000 mg/dLNoKettering Health Springfield Urine hemoglobin detection by automated test stripOrdered By: Tray Randle on 93-13-0407Quyoqcfunw Auto test strip Ql (U)TraceNegativePremier Health Upper Valley Medical CenterUrine lactic acid measurementOrdered By: Arleen Stephen on 34-24-4932Xnunkxd (U) [Moles/Vol]1.7 mmol/L0.5-2.2FSelect Medical Cleveland Clinic Rehabilitation Hospital, BeachwoodUrine leukocyte esterase detection by automated test stripOrdered By: Tray Randle on 09-66-9959Twcjjllti esterase Auto test strip Ql (U)2+ NegativePremier Health Upper Valley Medical CenterUrobilinogen Auto test strip (U) [Mass/Vol]Ordered By: Tray Randle on 48-17-4167Lykvvosewujr (U) [Mass/Vol] Normal mg/dLNoKettering Health SpringfieldpH Auto test strip (U)Ordered By: Tray Randle on 63-45-6647iJ (U)5.5 [pH]5.0-9.0[facility] CenterA1C HEMOGLOBINon 44-67-3780IkW7l (Bld) [Mass fraction]7.5 %[employer] Other HbA1c (Bld) [Mass fraction]on 67-65-9349D2R HEMOGLOBIN [employer] Other a1c HEMOGLOBINon 05-58-5185SlL6v (Bld) [Mass fraction] 6 %[employer] Other Glucose - FINGER STICKon 90-93-2048Zjypvak [Mass/Vol] 150 mg/dLNo31[place] Other HbA1c (Bld) [Mass fraction]on 66-53-2382O0D HEMOGLOBIN [employer] Other A1C HEMOGLOBINon 53-63-5349GmH8t (Bld) [Mass fraction] 6.9 %[employer] Other Glucose - FINGER STICKon 08-24-4857Ajdzdkd [Mass/Vol] 244 mg/dLNort DNA Guide Other HbA1c (Bld) [Mass fraction]on 60-42-4981I9E HEMOGLOBIN [employer] Other PROGRESSon 17-11-2738CWTWYKXWAVL ID: [id number] Author: Clyde Hall Service: ? Author Type: [...] - RTC to see Feb 27 at [facility], to ensure complete healing, and further discuss plan of care re pathology results. - call office prn for issues/concerns Clyde Hall APRN.[facility] [phone] Visit (GYNML) TAYE GAY ([id number]) 1955 F Date Time Provider Department 02/11/19 2:30 PM CLYDE HALL ([facility]) GYNML During your visit today, we recorded [...] - RTC to see Nov 1 at [facility], to ensure complete healing, and further discuss plan of care re pathology results. - call office prn for issues/concerns Clyde Hall APRN.PATTERN REPAIR PERSON Referring Provider: THEO JOAQUIN [[id number]] Allergies As of Date: 02/11/2019 Noted Allergy [...] Encounter Status:Closed by CLYDE HALL CNP on 02/12/19[facility] 31-02-8968PGNHMhdoub Visit (GYNML) TAYE GAY ([id number]) 1955 F Date Time Provider Department 01/21/19 10:45 AM THEO JOAQUIN GYNDOMINIK During your visit today, we recorded the following information about you: Temperature Pulse Blood pressure Weight 98.6 degrees 94/minute 111/52 91.4 kg Theo Joaquin MD 01/22/2019 2:06 PM Signed Gynecologic Oncology [facility] Re: Taye Gay CCF#:[id number] 01/21/2019 Dear Linwood Irwin: Taye presents for [...] note were sent to: Linwood Irwin MD ([facility]) [address] [place] [id number] CC: Jonas Yoder MD (PCP) Referring Provider: THEO JOAQUIN [[id number]] Allergies As of Date: 01/21/2019 Noted Allergy [...] Encounter Status:Closed by THEO JOAQUIN MD on 01/22/19[facility] PROGRESSon 51-13-5206WSWTHXOWTRQ ID: [id number] Author: Theo Joaquin Service: ? Author Type: Physician Type: Progress Notes Filed: 01/22/2019 2:06 PM Note Text: Gynecologic Oncology [facility] Re: Taye Gay CCF#:[id number] 01/21/2019 Dear Linwood Irwin: Taye presents for [...] were sent to: Linwood Irwin MD (DrC) [facility] [address] CC: Jonas Yoder MD (PCP)[facility] HospitalCNOVon 37-09-1092YPQE Office Visit (GYNML) PRITITAYE ([id number]) 1955 F Date Time Provider Department 01/07/19 8:30 AM THEO JOAQUIN GYN During your visit today, we recorded the following information about you: Temperature Pulse Blood pressure Weight 98.4 degrees 124/minute 103/53 90.2 kg Theo Joaquin MD 01/10/2019 11:17 PM Signed Gynecologic Oncology [facility] Re: Taye Priti CCF#:[id number] 01/07/2019 Dear Linwood Irwin: Taye presents for [...] were sent to: Linwood Irwin MD (DrC) [address] [place] [phone] CC: Jonas Yoder MD (PCP) Referring Provider: THEO JOAQUIN [[id number]] Allergies As of Date: 01/07/2019 Noted Allergy [...] Encounter Status:Closed by THEO JOAQUIN MD on 01/10/19[facility] 86-19-6722ZURNNsxgfxawq (GYNML) TAYE GAY ([id number]) 1955 F Date Time Provider Department 01/06/19 [...] Appointment made with Dr. Joaquin 01/07 @ 5756 for wound check Patient verbalized understanding and [...] More... Encounter Status:Closed by SHANTEL REYNOSO on 01/06/19[facility] PROGRESSon 34-10-2874WHHMSMKICOG ID: [id number] Author: Theo Joaquin Service: ? Author Type: Physician Type: Progress Notes Filed: 01/10/2019 11:17 PM Note Text: Gynecologic Oncology [facility] Re: Taye Priti CC#:[id number] 01/07/2019 Dear Linwood Irwin: Taye presents for [...] note were sent to: Linwood Irwin MD ([facility]) [facility] [address] [address] CC: Jonas Yoder MD (PCP)[facility] HospitalANES Yousuf 97-90-9949KIRM POSTHNO ID: [id number] Author: Katharina Durham Service: Anesthesiology Author Type: [...] January 01, 2019 TIME: 9:45 AM PAGER/CONTACT #:[facility] HospitalANES PREOPon [id number] PREOPHNO ID: [id number] Author: Katharina Durham Service: Anesthesiology Author Type: [...] for 7 days Inpatient medications reviewed in [facility]. I have interviewed and examined the [...] January 01, 2019 TIME: 7:35 AM PAGER/CONTACT #:[facility] HospitalTORY PHYSICALon [id number] PHYSICALHNO ID: [id number] Author: Petty Shahid (Fel) Service: Gynecology Oncology [...] DATE: January 01, 2019 TIME: 7:16 AM PAGER:[facility] HospitalOPERATIVE NOon 46-51-2970QNMITRWJQ NO HNO ID: [id number] Author: Theo Joaquin Service: Gynecology Oncology Author Type: Physician Type: Operative Report Filed: 01/17/2019 7:16 PM Note Text: OPERATIVE/PROCEDURE REPORT LOG ID: [id number] SURGERY/PROCEDURE DATE: 01/01/2019 INCISION/PROCEDURE START TIME: 8:11 AM INCISION CLOSE/PROCEDURE END TIME: 8:34 AM SURGEON(S)/PROCEDURALIST(S) AND SPECIAL PROGRAMS DIRECTOR(S): Surgeon(s) and Role: * Theo Joaquin - [...] January 03, 2019 TIME: 2:24 PM PAGER/CONTACT #:[facility] HospitalPT EDon [id number] EDHNO ID: [id number] Author: Patty GalvinRn) BRENDA Bernal Service: Nursing [...] flavia st Electronically Signed By: Patty Bernal RNNoHigh Point HospitalPT EDHNO ID: [id number] Author: Zack GalvinRn) BRENDA Murry Service: Nursing [...] (RECOMMENDATION): None Electronically Signed By: Zack Murry RNForsyth Dental Infirmary for Children EDHNO ID: [id number] Author: Jelly (Rn) BRENDA Simmons Service: Nursing [...] (RECOMMENDATION): None Electronically Signed By: Jelly Simmons RNAddison [facility] PATHOLOGYon 28-37-5998MCBWHMFG PATHOLOGYSpecimen originated from [facility] Specimen #: [id number] Submitting Physician: THEO JOAQUIN MD FINAL DIAGNOSIS [...] o'clock. EL/clay 01/01/2019 Gross examination performed at [facility], [address] [place] [address] Date of Report: 01/05/2019 Date of Procedure: 01/01/2019 Date of Receipt: 01/01/2019 Submitted by: THEO JOAQUIN MD Location: [facility] Diagnostic interpretation performed at [facility], [address] [place], [place] [id number]. [facility] Number: [id number] Cod Hospital [facility] 95-70-5685ETOJXWN OSVALDO ID: [id number] Author: Nataliya GalvinRn) BRENDA Bell Service: Nursing [...] Nataliya Bell RN December 24, 2018 3:07 PMNormalMartha'S Vineyard HospitalConfirm Blood Typeon 12-17-2018 ABO/RH(D)PositiveBoston Sanatorium HospitalComment on above:Performed By: #### CONABO #### [place] [address] Jhbg and SCR (30D)on 01-87-7393ODF/RH(D)PositiveBoston Sanatorium HospitalComment on above:Performed By: #### [id number] #### [place] [address] IKWRyd 47-48-2291JWLTFyrbdwa:Taye Gay MRN: Height:5' 7 (1.702 m) Weight:200 [...] 51.2 % 12/17/2018 46.0 36.0 Progress Notes (DEVELOPER ADVISOR [facility]): Aracelis Charles, RN, RN 12/22/2018 11:38 AM Signed Pre-op teaching Procedure: vulvar surgery Physician: Location: [facility]: [phone] Date AND Time: 01/01/19 MEDICAL CLEARANCE: No [...] Naprosyn(naproxen) Agrylin NSAIDS Pepto-Bismol Aleve Ecotrin Persantine Cathy-Greeley Excedrin Plaquenil Anacin Heparin Plavix Ascriptin Herbals [...] - IV pain medication after surgery, IV TEACHER BALLET if ordered by MD, discharged home with a prescription for PO pain medication, pain management after surgery, side effects of pain medication (including constipation, dizziness, drowsiness, and medication interactions). DVT PROPHYLAXIS - Early ambulation, SCDs, injectable anticoagulants (heparin, lovenox, etc) RESPIRATORY - Incentive spirometer, coughing/deep breathing exercises, ambulation. RETURN TO WORK - As directed by physician, please send any FMLA papers to physician's production reproduction manager. SYMPTOMS TO NOTIFY MD - Fever, chills, nausea, vomiting, increased or severe pain, heavy vaginal bleeding, foul smelling vaginal drainage, pain or swelling in extremities. URGENT SYMPTOMS - Call 911 or go to ER if any shortness of breath, difficulty breathing, or chest pain. HOW TO CONTACT PHYSICIAN - Physician's office phone number given to patient, if after hours patient instructed to call glass laminating operator and ask for the doctor patient information coordinator. Patient and family have phone number to call 24 hours/day. Patient Evaluation: Verbalizes understanding Patient and/or family express understanding of upcoming surgery and the operative process. Questions answered. Follow Up Plan: Follow up as needed Supplemental Material Given: Pre-operative teaching packet provided to the patient: INPATIENT/OUTPATIENT printed instructions; Post-operative instruction sheet, bowel prep instruction sheet For questions contact: office at [phone] Instructed By Aracelis Charles RNBoston Hospital for Womenerum or plasma calcidiol measurement (mass/volume)on 62-75-545849945399-jccalkcyfwacbr D3 [Mass/Vol] 32.8 ng/nV55-300PwnmcqeewPremier Health Upper Valley Medical CenterComment on above:VITAMIN D STATUS 25(OH)VITAMIN D RANGE (ng/mL) Deficient <20 Insufficient 20 to <42Ghiqrglqrs56 to 100Reference: Sandra MF,Felisha SCANLON, Leon SHERWOOD, et al. Evaluation,treatment, and prevention of vitamin D deficiency; an Endocrine Society clinical practice guideline. JCEM. 2010; 96(7):1911-30.Vitamin B12 ser/plason 55-32-0252Pycdsowfk (Vitamin B12) [Mass/Vol]446 pg/yQ249-424PeqovkqtsPremier Health Upper Valley Medical CenterBASIC METABOLIC PANELon 93-72-1591Ipqbr gap11 mmol/L Normal0-19[facility] Hospital ToledoComment on above:Performed By: #### BMP ####[address],[place], [place] [address]RBL/Creatinine Ratio16.0 RATIONormal 8-21[facility] Hospital ToledoComment on above:Performed By: #### BMP ####[address],[place], [place] [address]Oifknrw6.1 mg/dLNormal8.5-10.4[facility] Comment on above:Performed By: #### BMP ####[address],[place], [place] [address]Hjwztuiz03 mmol/VNxsiiq24-598Uvbx Health SystemComment on above:Performed By: #### BMP ####[address],[place], [place] [address]QV549 mmol/SScdoci78-78 [facility] Hospital ToledoComment on above:Performed By: #### BMP ####[address],[place], [place] [address]Kxcvsvboxy4.5 mg/dLNormal0.4-1.6[facility] Comment on above:Performed By: #### BMP ####[address],[place], [place] [address]aCWQ (MDRD)NormalRegency Hospital ToledoComment on above:Result Comment: 134GFR ml/min/1.73m2 Stage -----90 160-89 230-59 315-29 4<15 5For -Americans, multiply EGFR result by 1.210Calculation not validated for patients under 18 years of age.Performed at [facility],[address],[place] [address]Kcbkylpjd By: #### BMP ####[address],[place], [place] [address]Qdtdfzr mass ncgv212 mg/zKXnnj48-98XdnvRegency Hospital ToledoComment on above:Performed By: #### BMP ####[address],[place], [place] [address]Leomtwrnx molar conc4.6 mmol/L Normal3.4-5.1LOur Lady of Mercy HospitalComment on above:Performed By: #### BMP ####[address],[place], [place] [address]Xhgyvh207 mmol/KCvivbf824-638Rgfl Health SystemComment on above:Performed By: #### BMP ####[address],[place], [place] [address]Svrn nitrogen8 mg/dLNormal8-25[facility] Hospital ToledoComment on above:Performed By: #### BMP ####[address],[place], [place] [address]TBAnf 05-83-3481YCXEKGVentricular Rate : 60 BPMAtrial Rate : 60 BPMP-R Interval : 166 msQRS Duration : 80 msQ-T Interval : 432 msQTC Calculation(Bezet) : 432 msCalculated P [place] : 63 degreesCalculated R [place] : 29 degreesCalculated T [place] : 35 degreesDiagnosis:Normal sinus rhythmNormal ECGNo previous ECGs cecy ilableConfirmed by Walter Slaughter ([id number]) on 05/16/2017 3:45:18 PMNErie County Medical CenterHEMOGLOBIN,HCTon 02-03-9349Twiewlpztx (HCT)Mgpw87-[address] [place] [address] Comment on above:Result Comment: 49.3Performed at [facility] Centeref[facility],[address] [place], [place] [address]Tadsejcwi By: #### HH ####[address],[place], [place] [address]Mrjedixynr mass conc (Bld)16.9 g/cSRhzu59.0-15.0Reg[facility] Hospital ToledoComment on above:Performed By: #### HH ####[address] ,[place] [address] Operative Reporton [id number] ReportNoCuba Memorial HospitalPOCT GLUCOSEon [id number] mass seez301 mg/iSYugq43-35LcufRegency Hospital ToledoComment on above:Performed By: #### PCGL ####[facility] [place], [place] [address]Zwfcipc mass hpxn713 mg/tQXjsr54-94Vded97 Thomas StreetComment on above: Performed By: #### PCGL ####[facility] [place], [place] [address]Ehzyswm mass abgl254 mg/mXKhdt39-68Dbbx97 Thomas StreetComment on above:Performed By: #### PCGL ####Oracio [address]arkin[address] [place], [place] [address]Xevjiyw mass sjss107 mg/sXHppp85-33Vkrb97 Thomas StreetComment on above:Performed By: #### PCGL ####[address]acio [address] [place] [address] Vital Signs Date TimeVital SignValuePerforming YktmforneAwtzthyy04-15-6197 12:41-0400Body mass index (BMI) [Ratio]30.38 kg/t5NyfgngLinwood Irwin MD Work Phone: [phone] CenterMsmksaezio24-80-5741 12:41-0400Body kg Linwood Irwin MD Work Phone: 1(151)[address]10-14-2025 12:41-0400Diastolic blood avcigcmb60 mm[Hg]Linwood Irwin MD Work Phone: 1(394)[address]10-14-2025 12:41-0400Systolic blood rbozraxp019 mm[Hg]Linwood Irwin MD Work Phone: 1(192)048-[address] [place], [place] [address]Qruedtnugv41-65-7531 13:19-0400Body ivipuy982.2 cmPpatti Irwin MD Work Phone: 1(493)184-[facility] HospitalC[facility] CenterLqlxewkxmd54-70-1909 13:19-0400Body mass index (BMI) [Ratio]30.07 kg/z7FvkearLinwood Irwin MD Work Phone: [facility] CenterMnotpvtdal22-26-2629 13:19-0400Body ekwnvy03.09 kgLinwood Irwin MD Work Phone: 1(636)633-[address] [place], [place] [address]Kicnwrwjxr38-14-8880 13:19-0400Diastolic blood aiiamwxr87 mm[Hg]Linwood Irwin MD Work Phone: 1(290)037-[facility] CenterOxehzbvhpg64-93-8192 13:19-0400Systolic blood zegkbebx432 mm[Hg]Linwood Irwin MD Work Phone: [facility] CenterTittwiwyde92-42-0432 16:15-0400Body vkuihz972.2 cmOz Kincaid MD Work Phone: [facility] CenterAvrhpbqmco27-31-2748 16:15-0400Body mass index (BMI) [Ratio]30.54 kg/m2Oz Kincaid MD Work Phone: [facility] CenterDudbmhiaxo27-57-2620 16:15-0400Body vegngz20.45 kgOz Kincaid MD Work Phone: [facility] CenterGbrmxwjuls44-90-8135 14:23-0400Body nnelji633.18 cmShantel Elliszara MENTAL HEALTH PROGRAM DIRECTOR Work Phone: 1(803)660-[address] [place], [place] 7757109-16-2025 14:23-0400 Body mass index (BMI) [Ratio]30.5 kg/x6Ubynomva Rohzara MENTAL HEALTH PROGRAM DIRECTOR Work Phone: 1(643)[address] [place], [place] 5061109-16-2025 14:23-0400 Body unxlssblmod08 [degF]Shantel Cierra MENTAL HEALTH PROGRAM DIRECTOR Work Phone: 1(796)[address] [place], [place] 5061109-16-2025 14:23-0400 Body hkuzse30.45 kgBeccakanchan Corralzara MENTAL HEALTH PROGRAM DIRECTOR Work Phone: 1(149)[address]09-16-2025 14:23-0400 Diastolic blood ixbasmno03 mm[Hg]Shantel Cierra MENTAL HEALTH PROGRAM DIRECTOR Work Phone: 1(549)[address]09-16-2025 14:23-0400 Heart rate88 /minBeccakanchan Norton MENTAL HEALTH PROGRAM DIRECTOR Work Phone: 1(205)[address] [place], [place] 5061109-16-2025 14:23-0400 SaO2% (BldA) [Mass fraction]96 %Shantel Cierra MENTAL HEALTH PROGRAM DIRECTOR Work Phone: 1(516)024-[address] [place], [place] 7757109-16-2025 14:23-0400 Systolic blood aotwlsao824 mm[Hg]Shantel Cierra BRAYN Work Phone: 1(433)[address] [place], [place] 5061109-09-2025 13:32-0400 Body yrjsym059.18 cmBeccakanchan Elliszara MENTAL HEALTH PROGRAM DIRECTOR Work Phone: 1(560)[address]09-09-2025 13:32-0400 Body mass index (BMI) [Ratio]30.5 kg/q2SbnndppsShantel Norton MENTAL HEALTH PROGRAM DIRECTOR Work Phone: [phone]09-09-2025 13:32-0400 Body .5 kgShantel Norton MENTAL HEALTH PROGRAM DIRECTOR Work Phone: 1(981)401-[address] [place], [place] 7757109-09-2025 13:32-0400 Diastolic blood wlpflvoh87 mm[Hg]Shantel Corralzara MENTAL HEALTH PROGRAM DIRECTOR Work Phone: 1(669)230-[address] [place], [place] 7757109-09-2025 13:32-0400 Heart rate79 /Aaliyah Yeer MENTAL HEALTH PROGRAM DIRECTOR Work Phone: 1(221)55425 [address]09-09-2025 13:32-0400 Respiratory rate18 /Aaliyah Norton MENTAL HEALTH PROGRAM DIRECTOR Work Phone: 1(310)[address]09-09-2025 13:32-0400 SaO2% (BldA) [Mass fraction]96 %Shantel Corralzara MENTAL HEALTH PROGRAM DIRECTOR Work Phone: 1(530)414-[address] [place], [place] 7757109-09-2025 13:32-0400 Systolic blood oqctqfcx358 mm[Hg]Shantel Cierra BRAYN Work Phone: 1(953)350-[address] [place], [place] 7757109-03-2025 13:47-0400 Body ytfcmm307.2 cmRoland Faust MD Work Phone: [facility]09-03-2025 13:47-0400 Body mass index (BMI) [Ratio]30.85 kg/o3DeijwztRoland Faust MD Work Phone: [facility]09-03-2025 13:47-0400 Body efeuqp48.36 kgRoland Faust MD Work Phone: [facility]09-03-2025 13:47-0400 Diastolic blood ccctdfgu52 mm[Hg]Roland Faust MD Work Phone: [address] [place], [place] 4233209-03-2025 13:47-0400 Heart rate62 /Luz Faust MD Work Phone: [facility]09-03-2025 13:47-0400 Systolic blood rhoanypy863 mm[Hg]Roland Faust MD Work Phone: [facility]08-19-2025 13:52-0400 Body adazvw042.18 cmGloria Keita DO Work Phone: 1(299)[address] [place], [place] 4900608-19-2025 13:52-0400 Body mass index (BMI) [Ratio]30.7 kg/q0Wroyyc Keita DO Work Phone: 1(144)[address] [place], [place] 4900608-19-2025 13:52-0400 Body ibsndfefmrg97.4 [degF]Sandra Debbie DO Work Phone: 1(529)[address] [place], [place] 4900608-19-2025 13:52-0400 Body sebyrn35.9 kgGloria Keita DO Work Phone: 1(371)[address] [place], [place] 4900608-19-2025 13:52-0400 Diastolic blood yfqbavcp20 mm[Hg]Sandra Keita DO Work Phone: 1(428)[address] [place], [place] 4900608-19-2025 13:52-0400 Heart rate79 /minGloria Keita DO Work Phone: 1(224)[address] [place], [place] 4900608-19-2025 13:52-0400 SaO2% (BldA) [Mass fraction]98 %Sandra Keita DO Work Phone: 1(313)5-[address] [place], [place] 2942408-19-2025 13:52-0400 Systolic blood dzqbkmyp53 mm[Hg]Sandra Ekita DO Work Phone: 1(161)[address] [place], [place] 4900606-10-2025 13:57-0400 Body ixpskl279.2 cmOz Kincaid MD Work Phone: [facility] CenterYcjayuarfa74-95-6737 13:57-0400Body mass index (BMI) [Ratio]31.48 kg/m2Oz Kincaid MD Work Phone: [facility] CenterDuluaszpuj10-02-6332 13:57-0400Body luxdzj19.17 kgOz Kincaid MD Work Phone: [facility] CenterEwjdmjyirb23-39-9955 14:59-0400Body .18 cmGloria Keita DO Work Phone: 1(149)[address] [place], [place] 4900606-05-2025 14:59-0400 Body mass index (BMI) [Ratio]31.4 kg/j5Rkofxu Keita DO Work Phone: 1(820)[address] [place], [place] 4900606-05-2025 14:59-0400 Body hvyuft39.17 kgGloria Keita DO Work Phone: 1(629)[address] [place], [place] 4900606-05-2025 14:59-0400 Diastolic blood wrzvawtu59 mm[Hg]Sandra Keita DO Work Phone: 1(148)[address] [place], [place] 4900606-05-2025 14:59-0400 Heart rate65 /minGloria Keita DO Work Phone: 1(349)[address] [place], [place] 4900606-05-2025 14:59-0400 SaO2% (BldA) [Mass fraction]95 %Sandra Keita DO Work Phone: 1(714)[address] [place], [place] 4900606-05-2025 14:59-0400 Systolic blood dbwztcyr50 mm[Hg]Sandra Keita DO Work Phone: 1(991)[address] [place], [place] 4900605-15-2025 13:30-0400 Diastolic blood syiqbfxi62 mm[Hg]Sandra Keita DO Work Phone: 1(804)[address] [place], [place] 4900605-15-2025 13:30-0400 Heart rate79 /minGloria Keita DO Work Phone: 1(173)[address] [place], [place] 4900605-15-2025 13:30-0400 Respiratory rate16 /minGloria Keita DO Work Phone: 1(109)[address] [place], [place] 4900605-15-2025 13:30-0400 SaO2% (BldA) [Mass fraction]95 %Sandra Keita DO Work Phone: 1(350)[address] [place], [place] 4900605-15-2025 13:30-0400 Systolic blood wsmyzazo054 mm[Hg]Sandra Keita DO Work Phone: 1(772)[address] [place], [place] 4900605-15-2025 13:00-0400 Inhaled oxygen flow rate2 L/minGloria Keita DO Work Phone: 1(061)[address] [place], [place] 4900605-15-2025 11:07-0400 Body naznxn044.18 cmGloria Keita DO Work Phone: 1(714)[address] [place], [place] 4900605-15-2025 11:07-0400 Body .71 kgGloria Keita DO Work Phone: 1(724)[address] [place], [place] 4900605-12-2025 11:06-0400 Diastolic blood kmukwhkk14 mm[Hg]Sandra Keita DO Work Phone: 1(870)[address] [place], [place] 4900605-12-2025 11:06-0400 Systolic blood myixddxq813 mm[Hg]Sandra Keita DO Work Phone: 1(904)[address] [place], [place] 4900604-29-2025 13:37-0400 Body iwlfib229.18 cmGloria Keita DO Work Phone: 1(231)[address] [place], [place] 4900604-29-2025 13:37-0400 Body mass index (BMI) [Ratio]31.8 kg/b1Wmhvhy Keita DO Work Phone: 1(422)[address] [place], [place] 4900604-29-2025 13:37-0400 Body gcapdo24.16 kgGloria Keita DO Work Phone: 1(143)[address] [place], [place] 4900604-29-2025 13:37-0400 Diastolic blood lwbrooua40 mm[Hg]Sandra Keita DO Work Phone: 1(357)[address] [place], [place] 4900604-29-2025 13:37-0400 Heart rate71 /minGloria Keita DO Work Phone: 1(036)[address] [place], [place] 4900604-29-2025 13:37-0400 Respiratory rate18 /minGloria Keita DO Work Phone: 1(450)[address] [place], [place] 4900604-29-2025 13:37-0400 SaO2% (BldA) [Mass fraction]96 %Sandra Keita DO Work Phone: 1(187)[address] [place], [place] 4900604-29-2025 13:37-0400 Systolic blood qvrueezk315 mm[Hg]Sandra Keita DO Work Phone: 1(991)[address] [place], [place] 4900604-24-2025 10:03-0400 Body hirxvd891.18 cmGloria Keita DO Work Phone: 1(240)[address] [place], [place] 4900604-24-2025 10:03-0400 Body mass index (BMI) [Ratio]32.2 kg/t5Upyzcs Keita DO Work Phone: 1(633)[address] [place], [place] 4900604-24-2025 10:03-0400 Body oxaabe70.3 kgGloria Keita DO Work Phone: 1(232)[address] [place], [place] 4900604-24-2025 10:03-0400 Diastolic blood lshtiovc91 mm[Hg]Sandra Keita DO Work Phone: 1(517)[address] [place], [place] 4900604-24-2025 10:03-0400 Heart rate64 /minGloria Keita DO Work Phone: 1(804)[address] [place], [place] 4900604-24-2025 10:03-0400 Respiratory rate18 /minGloria Keita DO Work Phone: 1(245)[address] [place], [place] 4900604-24-2025 10:03-0400 SaO2% (BldA) [Mass fraction]94 %Sandra Keita DO Work Phone: 1(069)[address] [place], [place] 4900604-24-2025 10:03-0400 Systolic blood aobvffnq601 mm[Hg]Sandra Keita DO Work Phone: 1(991)[address] [place], [place] 4900603-26-2025 11:19-0400 Body uowasv169.18 cmGloria Keita DO Work Phone: 1(828)[address] [place], [place] 4900603-26-2025 11:19-0400 Body mass index (BMI) [Ratio]31.3 kg/z6Amznts Keita DO Work Phone: 1(315)[address] [place], [place] 4900603-26-2025 11:19-0400 Body .2 [degF]Sandra Keita DO Work Phone: 1(863)[address] [place], [place] 4900603-26-2025 11:19-0400 Body .71 kgGloria Keita DO Work Phone: 1(474)[address] [place], [place] 4900603-26-2025 11:19-0400 Diastolic blood gwinnpkb42 mm[Hg]Sandra Keita DO Work Phone: 1(546)[address] [place], [place] 4900603-26-2025 11:19-0400 Heart rate72 /minGloria Keita DO Work Phone: 1(503)[address] [place], [place] 4900603-26-2025 11:19-0400 Respiratory rate16 /minGloria Keita DO Work Phone: 1(362)[address] [place], [place] 4900603-26-2025 11:19-0400 SaO2% (BldA) [Mass fraction]98 %Sandra Keita DO Work Phone: 1(472)[address] [place], [place] 4900603-26-2025 11:19-0400 Systolic blood mrhijzux113 mm[Hg]Sandra Keita DO Work Phone: 1(386)[address] [place], [place] 4900603-25-2025 14:48-0400 Body ncdfys297.2 cmOz Kincaid MD Work Phone: [facility] CenterKanprrrlyd16-24-3047 14:48-0400Body mass index (BMI) [Ratio]31.32 kg/m2Oz Kincaid MD Work Phone: [facility] CenterIpxwwwlfqu10-63-7996 14:48-0400Body .72 kgOz Kincaid MD Work Phone: [facility] CenterJltusrjwtu94-33-5043 09:46-0500Body oyucie895.2 cmRoland Faust MD Work Phone: [facility]02-28-2025 09:46-0500 Body mass index (BMI) [Ratio]32.51 kg/g6GxoglknRoland Faust MD Work Phone: [facility]02-28-2025 09:46-0500 Body gmytop81.17 kgRoland Faust MD Work Phone: 1(235)905-21[facility]02-28-2025 09:46-0500 Diastolic blood irkdtysr05 mm[Hg]Roland Faust MD Work Phone: 1(237)886-[address] [place], [place] 4907902-28-2025 09:46-0500 Heart rate62 /minRoland Faust MD Work Phone: 1(815)168-[address] [place], [place] 4907902-28-2025 09:46-0500 Systolic blood tczsqlyo334 mm[Hg]Roland Faust MD Work Phone: [facility]01-09-2025 13:07-0500 Body vquold755.18 cmSatishoria Keita DO Work Phone: 1(512)[address] [place], [place] 4900601-09-2025 13:07-0500 Body mass index (BMI) [Ratio]32.9 kg/v3Bqyiiu Keita DO Work Phone: 1(448)2-[address] [place], [place] 2942401-09-2025 13:07-0500 Body uykayd99.3 kgGloria Keita DO Work Phone: 1(484)[address] [place], [place] 4900601-09-2025 13:07-0500 Diastolic blood mm[Hg]Sandra Keita DO Work Phone: 1(594)[address] [place], [place] 4900601-09-2025 13:07-0500 Heart rate64 /minGlsenait Keita DO Work Phone: 1(965)[facility]01-09-2025 13:07-0500 Respiratory rate18 /minGloria Keita DO Work Phone: 1(521)[address] [place], [place] 4900601-09-2025 13:07-0500 SaO2% (BldA) [Mass fraction]97 %Sandra Keita DO Work Phone: 1(294)[address] [place], [place] 4900601-09-2025 13:07-0500 Systolic blood syjyaglv47 mm[Hg]Sandra Keita DO Work Phone: 1(463)[address] [place], [place] 4900601-02-2025 08:25-0500 Body eogrvdflfgc46.8 [degF]Sandra Keita DO Work Phone: 1(481)[address] [place], [place] 4900601-02-2025 08:25-0500 Diastolic blood julfxvwp83 mm[Hg]Sandra Keita DO Work Phone: 1(672)[address] [place], [place] 4900601-02-2025 08:25-0500 Heart rate64 /minGloria Keita DO Work Phone: 1(798)[address] [place], [place] 4900601-02-2025 08:25-0500 Respiratory rate18 /minGloria Keita DO Work Phone: 1(986)[address] [place], [place] 4900601-02-2025 08:25-0500 SaO2% (BldA) [Mass fraction]96 %Sandra Keita DO Work Phone: 1(371)[address] [place], [place] 4900601-02-2025 08:25-0500 Systolic blood mm[Hg]Sandra Keita DO Work Phone: 1(669)[address] [place], [place] 4900601-02-2025 05:12-0500 Body jctimg91.2 kgGloria Keita DO Work Phone: 1(284)[address] [place], [place] 4900612-31-2024 23:40-0500 Body qgwhyp530.18 cmGloria Keita DO Work Phone: 1(336)[address] [place], [place] 4900612-31-2024 23:19-0500 Diastolic blood iudetjkv29 mm[Hg]Sandra Keita DO Work Phone: 1(423)[address] [place], [place] 4900612-31-2024 23:19-0500 Heart rate72 /minGloria Keita DO Work Phone: 1(369)[address] [place], [place] 4900612-31-2024 23:19-0500 Respiratory rate18 /minGloria Keita DO Work Phone: 1(279)[address] [place], [place] 4900612-31-2024 23:19-0500 SaO2% (BldA) [Mass fraction]98 %Sandra Keita DO Work Phone: 1(765)[address] [place], [place] 4900612-31-2024 23:19-0500 Systolic blood oprqvswj170 mm[Hg]Sandra Keita DO Work Phone: 1(678)[address] [place], [place] 4900612-31-2024 19:39-0500 Body eljfaw306.18 cmGloria Keita DO Work Phone: 1(244)[address] [place], [place] 4900612-31-2024 19:39-0500 Body rgncngtycuf12.1 [degF]Sandra Keita DO Work Phone: 1(456)[address] [place], [place] 4900612-31-2024 19:39-0500 Body .4 kgGloria Keita DO Work Phone: 1(058)[address] [place], [place] 4900612-31-2024 11:35-0500 Body uwhbrs057.18 cmGloria Keita DO Work Phone: 1(254)[address] [place], [place] 4900612-31-2024 11:35-0500 Body mass index (BMI) [Ratio]32.5 kg/q9Vkohat Keita DO Work Phone: 1(324)[address] [place], [place] 4900612-31-2024 11:35-0500 Body ewyddn15.34 kgGloria Keita DO Work Phone: 1(581)[address] [place], [place] 4900612-31-2024 11:35-0500 Diastolic blood yxaercoo40 mm[Hg]Sandra Keita DO Work Phone: 1(306)[address] [place], [place] 4900612-31-2024 11:35-0500 Heart rate71 /minGloria Keita DO Work Phone: 1(267)[address] [place], [place] 4900612-31-2024 11:35-0500 Respiratory rate18 /minGloria Keita DO Work Phone: 1(656)[address] [place], [place] 4900612-31-2024 11:35-0500 SaO2% (BldA) [Mass fraction]94 %Sandra Keita DO Work Phone: 1(556)[address] [place], [place] 4900612-31-2024 11:35-0500 Systolic blood hesczysn82 mm[Hg]Sandra Keita DO Work Phone: 1(959)[address] [place], [place] 4900612-31-2024 10:15-0500 Body dsgybi083.18 cmGloria Keita DO Work Phone: 1(290)[address] [place], [place] 4900612-31-2024 10:15-0500 Body mass index (BMI) [Ratio]32.7 kg/v3Fvatzl Keita DO Work Phone: 1(578)[address] [place], [place] 4900612-31-2024 10:15-0500 Body czilasxxstk20.9 [degF]Sandra Keita DO Work Phone: 1(004)[address] [place], [place] 4900612-31-2024 10:15-0500 Body fyeyux38.8 kgGloria Keita DO Work Phone: 1(584)[address] [place], [place] 4900612-31-2024 10:15-0500 Diastolic blood mm[Hg]Sandra Keita DO Work Phone: 1(519)[address] [place], [place] 4900612-31-2024 10:15-0500 Heart rate70 /minGloria Keita DO Work Phone: 1(844)[address] [place], [place] 4900612-31-2024 10:15-0500 Respiratory rate16 /minGloria Keita DO Work Phone: 1(044)[address] [place], [place] 4900612-31-2024 10:15-0500 SaO2% (BldA) [Mass fraction]96 %Sandra Keita DO Work Phone: 1(694)[address] [place], [place] 4900612-31-2024 10:15-0500 Systolic blood ianxnxbc63 mm[Hg]Sandra Keita DO Work Phone: 1(177)[address] [place], [place] 4900612-30-2024 14:29-0500 Body pusrpo049.18 cmGloria Keita DO Work Phone: 1(249)[address] [place], [place] 4900612-30-2024 14:29-0500 Body crnvfcvzunx41 [degF]Sandra Keita DO Work Phone: 1(183)[address] [place], [place] 4900612-30-2024 14:29-0500 Body .71 kgGloria Keita DO Work Phone: 1(974)[address] [place], [place] 4900612-30-2024 14:29-0500 Diastolic blood qrkoqkul68 mm[Hg]Sandra Keita DO Work Phone: 1(358)[address] [place], [place] 4900612-30-2024 14:29-0500 Heart rate80 /minGloria Keita DO Work Phone: 1(935)[address] [place], [place] 4900612-30-2024 14:29-0500 Respiratory rate18 /minGloria Keita DO Work Phone: 1(341)[address] [place], [place] 4900612-30-2024 14:29-0500 SaO2% (BldA) [Mass fraction]93 %Sandra Keita DO Work Phone: 1(358)[address] [place], [place] 4900612-30-2024 14:29-0500 Systolic blood brkdkoff357 mm[Hg]Sandra Keita DO Work Phone: 1(522)[address] [place], [place] 4900612-17-2024 09:35-0500 Body icndsl409.18 cmGloria Keita DO Work Phone: 1(999)[address] [place], [place] 4900612-17-2024 09:35-0500 Body mass index (BMI) [Ratio]32.1 kg/y3Ubnybl Keita DO Work Phone: 1(130)[address] [place], [place] 4900612-17-2024 09:35-0500 Body ktnkfutlijl79 [degF]Sandra Keita DO Work Phone: 1(351)[facility] [place], [place] 2942412-17-2024 09:35-0500 Body qlnlzi97.98 kgGloria Keita DO Work Phone: 1(249)[address] [place], [place] 4900612-17-2024 09:35-0500 Diastolic blood qalxncgk93 mm[Hg]Sandra Keita DO Work Phone: 1(726)[address] [place], [place] 4900612-17-2024 09:35-0500 Heart rate78 /minGloria Keita DO Work Phone: 1(210)[address] [place], [place] 4900612-17-2024 09:35-0500 Respiratory rate20 /minGloria Keita DO Work Phone: 1(526)[address] [place], [place] 4900612-17-2024 09:35-0500 SaO2% (BldA) [Mass fraction]98 %Sandra Keita DO Work Phone: 1(886)[address] [place], [place] 4900612-17-2024 09:35-0500 Systolic blood vxwgpoeb049 mm[Hg]Sandra Keita DO Work Phone: 1(196)[address] [place], [place] 4900612-10-2024 13:26-0500 Body bohwba516.2 cmOz Kincaid MD Work Phone: [facility] CenterIvgzzbgowc92-55-7741 13:26-0500Body mass index (BMI) [Ratio]31.32 kg/m2Oz Kincaid MD Work Phone: [facility] CenterBkywekitqx00-38-8706 13:26-0500Body jjmrdu71.72 kgOz Kincaid MD Work Phone: [facility] CenterGvarpzbhza73-97-9187 13:42-0500Body xwutde632.2 cmRoland Faust MD Work Phone: [facility]11-27-2024 13:42-0500 Body mass index (BMI) [Ratio]32.58 kg/a0XqeaxzdRoland Faust MD Work Phone: [facility]11-27-2024 13:42-0500 Body pjenmw57.35 kgRoland Faust MD Work Phone: [facility]11-27-2024 13:42-0500 Diastolic blood raehxwkq53 mm[Hg]Roland Faust MD Work Phone: [facility]11-27-2024 13:42-0500 Heart rate63 /minRoland Faust MD Work Phone: [facility]11-27-2024 13:42-0500 Systolic blood bqvxozfw416 mm[Hg]Roland Faust MD Work Phone: [facility]10-29-2024 13:55-0400 Body ospwyh952.2 cmOz Kincaid MD Work Phone: 1(365)722-[address] [place], [place] [address]Loyilthdsb60-71-9002 13:55-0400Body mass index (BMI) [Ratio]31.32 kg/m2Oz Kincaid MD Work Phone: 1(301)075-[address] [place], [place] [address]Yyajjvupro88-26-8637 13:55-0400Body nfabue45.72 kgOz Kincaid MD Work Phone: 5(627)628-[address] [place], [place] [address]Yiojmlrfnh43-86-9276 13:55-0400Diastolic blood mntiovfa67 mm[Hg]Oz Kincaid MD Work Phone: 9(358)261-[address] [place], [place] [address]Brhdlflhhn95-89-3817 13:55-0400Heart rate74 /min Oz Kincaid MD Work Phone: [place] [address]Yathngeaoj94-36-4500 13:55-0400Systolic blood ceztrcpx426 mm[Hg]Oz Kincaid MD Work Phone: 5(515)061-[address] [place], [place] [address]Sgyvtgfbrn68-17-7737 13:23-0400Body ukblgv965.18 cmGloria Debbie DO Work Phone: [facility]10-18-2024 13:23-0400 Body bnszzi09.71 kgGloria Keita DO Work Phone: 1(372)[address] [place], [place] 4900610-07-2024 11:56-0400 Body iknzhg161.18 cmDO Sandra Keita Work Phone: 1(443)[address] [place], [place] 4900610-07-2024 11:56-0400 Body mass index (BMI) [Ratio]31.6 kg/m2DO Sandrarebecca Keita Work Phone: 1(114)[address] [place], [place] 4900610-07-2024 11:56-0400 Body .62 kgDO Sandrarebecca Keita Work Phone: 1(827)[address] [place], [place] 4900610-07-2024 11:56-0400 Diastolic blood zwrahlna27 mm[Hg]DO Sandrarebecca Keita Work Phone: 1(054)[address] [place], [place] 4900610-07-2024 11:56-0400 Heart rate63 /minDO Sandra Debbie Work Phone: 1(501)[address] [place], [place] 4900610-07-2024 11:56-0400 Respiratory rate18 /minDO Sandrarebecca Keita Work Phone: 1(202)[address] [place], [place] 4900610-07-2024 11:56-0400 SaO2% (BldA) [Mass fraction]98 %DO Sandra Keita Work Phone: 1(752)[address] [place], [place] 4900610-07-2024 11:56-0400 Systolic blood aqhumcnj198 mm[Hg]DO Sandra Keita Work Phone: 1(613)[address] [place], [place] 4900609-18-2024 15:38-0400 Body qttvux527.18 cmDO Sandrarebecca Keita Work Phone: 1(002)[address] [place], [place] 4900609-18-2024 15:38-0400 Body mass index (BMI) [Ratio]31.3 kg/m2DO Sandrarebecca Keita Work Phone: 1(397)[address] [place], [place] 4900609-18-2024 15:38-0400 Body .77 kgDO Sandrarebecca Keita Work Phone: [facility]09-10-2024 13:18-0400 Body zabbgn990.2 cmOz Kincaid MD [facility]55[facility] 13:18-0400Body mass index (BMI) [Ratio]31.32 kg/m2Oz Kincaid MD Work Phone: [id number] 13:18-0400Body txefje95.72 kgOz Kincaid MD Work Phone: 1(679)335-[address] [place], [place] [address]Rqjjritnxu86-24-9627 13:18-0400Diastolic blood eduqipmc32 mm[Hg]Oz Kincaid MD Work Phone: 0(147)363-[address] [place], [place] [address]Tpvnjerfcm72-97-9765 13:18-0400Heart rate62 /min Oz Kincaid MD Work Phone: 1(563)325-[address] [place], [place] [address]Djnormaaqr70-36-7814 13:18-0400Systolic blood eczvagjc754 mm[Hg]Oz Kincaid MD Work Phone: 4(905)212-[address] [place], [place] [address]Erkzpbtcmf94-32-9720 10:40-0400Body szdzre319.2 cmRoland Faust MD Work Phone: [facility]08-19-2024 10:40-0400 Body mass index (BMI) [Ratio]30.48 kg/c2YecnobpRoland Faust MD Work Phone: [facility]08-19-2024 10:40-0400 Body nvsgiv66.27 kgRoland Faust MD Work Phone: [facility]08-19-2024 10:40-0400 Diastolic blood ycshzlje24 mm[Hg]Roland Faust MD Work Phone: 7(772)897-[address] [place], [place] 4907908-19-2024 10:40-0400 Heart rate73 /minRoland Faust MD Work Phone: [facility]08-19-2024 10:40-0400 Systolic blood reidnqnf807 mm[Hg]Roland Faust MD Work Phone: The [facility]07-22-2024 13:14-0400 Body xokjjs813.18 cmDO Sandrarebecca Keita Work Phone: 1(616)[address] [place], [place] 4900607-22-2024 13:14-0400 Body mass index (BMI) [Ratio]28.6 kg/m2DO Sandra Debbie Work Phone: 1(437)[address] [place], [place] 4900607-22-2024 13:14-0400 Body nziyfq16 kgDO Sandrarebecca Keita Work Phone: 1(961)[address] [place], [place] 4900607-22-2024 13:14-0400 Diastolic blood qaxgklrh89 mm[Hg]DO Sandrarebecca Keita Work Phone: 1(856)[address] [place], [place] 4900607-22-2024 13:14-0400 Heart rate54 /minDO Sandra Debbie Work Phone: 1(729)[address] [place], [place] 4900607-22-2024 13:14-0400 Respiratory rate18 /minDO Sandrarebecca Keita Work Phone: 1(023)[address] [place], [place] 4900607-22-2024 13:14-0400 SaO2% (BldA) [Mass fraction]97 %DO Sandra Keita Work Phone: 1(643)[address] [place], [place] 4900607-22-2024 13:14-0400 Systolic blood nictmsrp94 mm[Hg]DO Sandrarebecca Keita Work Phone: 1(021)[address] [place], [place] 4900607-18-2024 15:07-0400 Body ruxarz946.18 cmDO Sandra Debbie Work Phone: 1(585)[address] [place], [place] 4900607-18-2024 15:07-0400 Body mass index (BMI) [Ratio]28.5 kg/m2DO Sandra Debbie Work Phone: 1(884)[address] [place], [place] 4900607-18-2024 15:07-0400 Body skvumy63.8 kgDO Sandra Debbie Work Phone: [facility]07-18-2024 15:07-0400 Diastolic blood efhixizf09 mm[Hg]DO Sandra Keita Work Phone: 1(817)0-[address] [place], [place] 2942407-18-2024 15:07-0400 Heart rate67 /minDO Sandrarebecca Keita Work Phone: 1(900)[address] [place], [place] 4900607-18-2024 15:07-0400 Respiratory rate18 /minDO Sandra Debbie Work Phone: 1(372)[address] [place], [place] 4900607-18-2024 15:07-0400 SaO2% (BldA) [Mass fraction]97 %DO Sandra Keita Work Phone: 1(089)[address]07-18-2024 15:07-0400 Systolic blood xrwsimrr726 mm[Hg]DO Sandra Keita Work Phone: 1(791)[address] [place], [place] 4900607-17-2024 13:54-0400 Body pkfewi914.2 cmJonas Ch MD Work Phone: 1(014)280-[address] [place], [place] 4907907-17-2024 13:54-0400 Body mass index (BMI) [Ratio]28.19 kg/o3FcuumtjJonas Ch MD Work Phone: [phone]07-17-2024 13:54-0400 Body .65 kgJonas Ch MD Work Phone: 1(075)497-[address] [place], [place] 4907907-17-2024 13:54-0400 Diastolic blood silgrixj51 mm[Hg]Jonas Ch MD Work Phone: 4(950)322-[address] [place], [place] 4907907-17-2024 13:54-0400 Heart rate87 /minJonas Ch MD Work Phone: 8(376)352-[address] [place], [place] 4907907-17-2024 13:54-0400 Systolic blood wmmqezgo105 mm[Hg]Jonas Ch MD Work Phone: 5(783)294-[address] [place], [place] 4907907-16-2024 16:12-0400 Diastolic blood cxnvuzwz02 mm[Hg]DO Sandra Debbie Work Phone: 1(156)[address] [place], [place] 4900607-16-2024 16:12-0400 Heart rate61 /minDO Sandra Keita Work Phone: 1(058)[address] [place], [place] 4900607-16-2024 16:12-0400 Respiratory rate16 /minDO Sandra Keita Work Phone: 1(499)[address] [place], [place] 4900607-16-2024 16:12-0400 SaO2% (BldA) [Mass fraction]96 %DO Sandra Keita Work Phone: 1(273)[address] [place], [place] 4900607-16-2024 16:12-0400 Systolic blood bvngbftu460 mm[Hg]DO Sandra Keita Work Phone: 1(324)[address] [place], [place] 4900607-16-2024 12:16-0400 Body tzgpujjhtjd91.5 [degF]DO Sandra Debbie Work Phone: 1(487)[address] [place], [place] 4900607-16-2024 06:00-0400 Body ekfjsq12.5 kgDO Sandrarebecca Keita Work Phone: 1(523)[address] [place], [place] 4900607-14-2024 08:23-0400 Body oinqdq109.18 cmDO Sandra Keita Work Phone: 1(944)[address] [place], [place] 4900607-14-2024 05:05-0400 Diastolic blood wlsozojn26 mm[Hg]DO Sandra Debbie Work Phone: 1(787)[address] [place], [place] 4900607-14-2024 05:05-0400 Heart rate62 /minDO Sandra Keita Work Phone: 1(222)[address] [place], [place] 4900607-14-2024 05:05-0400 Respiratory rate18 /minDO Sandra Keita Work Phone: 1(061)[address] [place], [place] 4900607-14-2024 05:05-0400 SaO2% (BldA) [Mass fraction]100 %DO Sandra Keita Work Phone: 1(578)375-[address] [place], [place] 2942407-14-2024 05:05-0400 Systolic blood mm[Hg]DO Sandra Keita Work Phone: 1(815)[address]07-14-2024 03:44-0400 Body vzyhkfbvmit00.1 [degF]DO Sandra Keita Work Phone: 1(508)[address] [place], [place] 4900607-13-2024 22:16-0400 Body vqnexg514.18 cmDO Sandra Keita Work Phone: 1(321)[address] [place], [place] 4900607-13-2024 22:16-0400 Body zatdop05.64 kgDO Sandra Keita Work Phone: 1(507)[address] [place], [place] 4900607-09-2024 12:36-0400 SaO2% (BldA) [Mass fraction]100 %DO Sandra Keita Work Phone: 1(657)[address] [place], [place] 4900606-10-2024 09:48-0400 Body nwxlwa713.2 cmJonas Ch MD Work Phone: [facility]06-10-2024 09:48-0400 Body mass index (BMI) [Ratio]28.19 kg/v0SlfhhqsJonas Ch MD Work Phone: [phone]06-10-2024 09:48-0400 Body yigmwg37.65 kgJonas Ch MD Work Phone: [facility]06-10-2024 09:48-0400 Diastolic blood bgknacab71 mm[Hg]Jonas Ch MD Work Phone: [facility]06-10-2024 09:48-0400 Heart rate92 /minJonas Ch MD Work Phone: [facility]06-10-2024 09:48-0400 Systolic blood cyazcpln964 mm[Hg]Jonas Ch MD Work Phone: [address] [place], [place] 4233205-21-2024 13:02-0400 Body .64 cmDO Sandrarebecca Keita Work Phone: 1(819)[address] [place], [place] 4900605-21-2024 13:02-0400 Body mass index (BMI) [Ratio]29 kg/m2DO Sandrarebecca Keita Work Phone: 1(248)[address] [place], [place] 4900605-21-2024 13:02-0400 Body .67 kgDO Sandrarebecca Keita Work Phone: 1(866)[address] [place], [place] 4900605-21-2024 13:02-0400 Diastolic blood nsderiil48 mm[Hg]DO Sandra Debbie Work Phone: 1(258)[address] [place], [place] 4900605-21-2024 13:02-0400 Heart ethl383 /minDO Sandra Keita Work Phone: 1(599)[address] [place], [place] 4900605-21-2024 13:02-0400 Respiratory rate18 /minDO Sandra Debbie Work Phone: 1(149)[address] [place], [place] 4900605-21-2024 13:02-0400 SaO2% (BldA) [Mass fraction]99 %DO Sandra Debbie Work Phone: 1(324)[address] [place], [place] 4900605-21-2024 13:02-0400 Systolic blood mm[Hg]DO Sandra Debbie Work Phone: 1(899)[address] [place], [place] 4900605-18-2024 16:11-0400 Body zoyykaxcgxq76.7 [degF]DO Sandra Debbie Work Phone: 1(658)[address] [place], [place] 4900605-18-2024 16:11-0400 Diastolic blood efjskmwi71 mm[Hg]DO Sandra Debbie Work Phone: 1(842)[address] [place], [place] 4900605-18-2024 16:11-0400 Heart rate74 /minDO Sandra Keita Work Phone: 1(594)[address] [place], [place] 4900605-18-2024 16:11-0400 Respiratory rate17 /minDO Sandra Debbie Work Phone: 1(014)[address] [place], [place] 4900605-18-2024 16:11-0400 SaO2% (BldA) [Mass fraction]95 %DO Sandra Debbie Work Phone: 1(417)[address] [place], [place] 4900605-18-2024 16:11-0400 Systolic blood tpkcmyrj915 mm[Hg]DO Sandrarebecca Keita Work Phone: 1(416)[address] [place], [place] 4900605-18-2024 06:00-0400 Body .2 kgDO Sandrarebecca Keita Work Phone: 1(553)[address] [place], [place] 4900605-17-2024 12:41-0400 Body otxspt695.18 cmDO Sandrarebecca Keita Work Phone: 1(602)[address] [place], [place] 4900605-16-2024 13:58-0400 Body .64 cmDO Sandrarebecca Keita Work Phone: 1(695)[address] [place], [place] 4900605-16-2024 13:58-0400 Body mass index (BMI) [Ratio]29 kg/m2DO Sandra Keita Work Phone: 1(733)[address] [place], [place] 4900605-16-2024 13:58-0400 Body .64 kgDO Sandrarebecca Keita Work Phone: 1(799)[address] [place], [place] 4900605-16-2024 13:58-0400 Diastolic blood szpystwx89 mm[Hg]DO Sandrarebecca Keita Work Phone: [address] [place], [place] 4900605-16-2024 13:58-0400 Heart vyxa904 /minDO Sandra Debbie Work Phone: 1(763)[address] [place], [place] 4900605-16-2024 13:58-0400 Respiratory rate18 /minDO Sandra Debbie Work Phone: 1(383)[address] [place], [place] 4900605-16-2024 13:58-0400 SaO2% (BldA) [Mass fraction]97 %DO Sandrarebecca Keita Work Phone: [facility]05-16-2024 13:58-0400 Systolic blood mm[Hg]DO Sandra Keita Work Phone: [facility]03-20-2024 11:43-0400 Body cuelfs594.64 cmPrem[facility]03-20-2024 11:43-0400Body mass index (BMI) [Ratio]28.8 kg/r8GccfvsgojPrem[facility]03-20-2024 11:43-0400Body lquulpfwivb38.8 [degF][facility]03-20-2024 11:43-0400Body .19 kgPrem[facility]03-20-2024 11:43-0400Diastolic blood eccdenlz04 mm[Hg][facility] 07-17-2023 11:43-0400Heart rate78 /[facility] 07-17-2023 11:43-0400Respiratory rate16 /[facility] 07-17-2023 11:43-6063FfQ7% (BldA) [Mass fraction]98 %[facility]03-20-2024 11:43-0400Systolic blood hmqusegz413 mm[Hg][facility]02-21-2024 15:53-0500Body ddidcf785.64 cmPrem[facility]02-21-2024 15:53-0500Body mass index (BMI) [Ratio]28.9 kg/m2 [facility]02-21-2024 15:53-0500Body etbget26.33 kg [facility]02-21-2024 15:53-0500Diastolic blood yduphkbs94 mm[Hg][facility]02-21-2024 15:53-0500Heart rate95 /min [facility]02-21-2024 15:53-0500Respiratory rate18 /min [facility]02-21-2024 15:53-3384MsH4% (BldA) [Mass fraction]97 %[facility]02-21-2024 15:53-0500Systolic blood xlkkojeg35 mm[Hg][facility]02-14-2024 15:38-0500 Body wsjxni591.64 cmPrem[facility]02-14-2024 15:38-0500Body mass index (BMI) [Ratio]28.5 kg/b8UxprjgxgoPrem[facility] Health [facility]02-14-2024 15:38-0500Body trlowr59.28 kgPrem[facility]02-14-2024 15:38-0500Diastolic blood mm[Hg][facility] 06-12-2023 15:38-0500Heart rate95 /minPrem[facility] 06-12-2023 15:38-0500Respiratory rate18 /[facility] 06-12-2023 15:38-7095PwG3% (BldA) [Mass fraction]99 %[facility]02-14-2024 15:38-0500Systolic blood rjtixdrj323 mm[Hg][facility]11-06-2023 15:00-0500Body euebmx117.64 cmSandra Keita Other [employer] Other 11-06-2023 15:00-0500Body mass index (BMI) [Ratio] 29.97 kg/j9HpgqefSandra Keita Other [employer] Other 11-06-2023 15:00-0500Body .23 kgSandra Keita Other [employer] Other [id number] 15:00-0500Diastolic blood vlkqocht34 mm[Hg] Sandra Debbie Other [employer] Other 11-06-2023 15:00-0500Respiratory rate18 /minGlsenait Keita Other [employer] Other 11-06-2023 15:00-2635LeT2% (BldA) [Mass fraction]96 % Sandra Debbie Other [employer] Other 11-06-2023 15:00-0500Systolic blood ibavthxg64 mm[Hg] Sandra Debbie Other [employer] Other 09-11-2023 14:00-0400Body mywjch753.64 cmTondra Mapus Other [employer] Other 09-11-2023 14:00-0400Body mass index (BMI) [Ratio] 30.03 kg/o0Zbsqfc Mapus Other [employer] Other 09-11-2023 14:00-0400Body .41 kgTondra Mapus Other [employer] Other 09-11-2023 14:00-0400Diastolic blood fzvwmniu59 mm[Hg] Tondra Mapus Other [employer] Other 09-11-2023 14:00-0400Respiratory rate18 /minTondra Mapus Other [employer] Other 09-11-2023 14:00-9578XqL1% (BldA) [Mass fraction]98 % Tondra Mapus Other [employer] Other 09-11-2023 14:00-0400Systolic blood pcficnxx608 mm[Hg] Tondra Mapus Other [employer] Other 09-06-2023 11:00-0400Body gqtpip039.64 Rob Noble Other [employer] Other 09-06-2023 11:00-0400Body mass index (BMI) [Ratio]29.7 kg/v3FlzecckuBrayden Noble Other [employer] Other 09-06-2023 11:00-0400Body .46 kgLafavian Noble Other [employer] Other 09-06-2023 11:00-0400Diastolic blood bgpdinrk23 mm[Hg] Brayden Noble Other [employer] Other 09-06-2023 11:00-0400Systolic blood mm[Hg] Brayden Noble Other [employer] Other 08-02-2023 15:00-0400Body efvpgp920.64 cmSandra Keita Other [employer] Other 08-02-2023 15:00-0400Body mass index (BMI) [Ratio] 29.58 kg/n3HlbpxvSandra Keita Other [employer] Other 08-02-2023 15:00-0400Body kvybde52.14 kgSandra Keita Other [employer] Other 08-02-2023 15:00-0400Diastolic blood mm[Hg] Sandra Keita Other [employer] Other 08-02-2023 15:00-0400Respiratory rate20 /minSandra Keita Other [employer] Other 08-02-2023 15:00-4363NbK8% (BldA) [Mass fraction]99 % Sandra Keita Other [employer] Other 08-02-2023 15:00-0400Systolic blood hleyufxo916 mm[Hg] Sandra Debbie Other [employer] Other 06-01-2023 14:15-0400Body ojdkgm426.64 cmTondra Mapus Other [employer] Other 06-01-2023 14:15-0400Body mass index (BMI) [Ratio] 29.53 kg/p0Boarsg Mapus Other [employer] Other 06-01-2023 14:15-0400Body mejdug59.01 kgTondra Mapus Other [employer] Other 06-01-2023 14:15-0400Diastolic blood cmsyzalu63 mm[Hg] Tondra Mapus Other [employer] Other 06-01-2023 14:15-0400Respiratory rate18 /minTondra Mapus Other [employer] Other 06-01-2023 14:15-8722QxM4% (BldA) [Mass fraction]97 % Tondra Mapus Other [employer] Other 06-01-2023 14:15-0400Systolic blood yoduwqhz797 mm[Hg] Tondra Mapus Other [employer] Other 04-13-2023 16:15-0400Body dztkoy535.64 cmGloria Keita Other [employer] Other 04-13-2023 16:15-0400Body mass index (BMI) [Ratio] 29.86 kg/n3Gkgsaqsenait Keita Other [employer] Other 04-13-2023 16:15-0400Body qvsikz19.92 kgGlsenait Keita Other [employer] Other 04-13-2023 16:15-0400Diastolic blood mm[Hg] Sandrarebecca Keita Other [employer] Other 04-13-2023 16:15-0400Respiratory rate18 /minGlsenait Keita Other [facility] Other 04-13-2023 16:15-6170NdY0% (BldA) [Mass fraction]97 % Sandrajacob Keita Other [employer] Other 04-13-2023 16:15-0400Systolic blood nnuckizl144 mm[Hg] Sandra Debbie Other [employer] Other 02-20-2023 15:30-0500Body gvdkce621.64 cmTondra Yvonne Other [employer] Other 02-20-2023 15:30-0500Body mass index (BMI) [Ratio] 35.34 kg/n3Kyhewp Mapus Other [employer] Other 02-20-2023 15:30-0500Body roiqoh65.34 kgTondra Mapus Other [facility] Other 02-20-2023 15:30-0500Diastolic blood ddxdyfrd52 mm[Hg] Tondra Mapus Other [employer] Other 02-20-2023 15:30-0500Respiratory rate18 /minTondra Mapus Other [employer] Other 02-20-2023 15:30-4783RoR7% (BldA) [Mass fraction]97 % Tondra Mapus Other [employer] Other 02-20-2023 15:30-0500Systolic blood cxrzsuxg488 mm[Hg] Tondra Mapus Other [employer] Other 09-13-2022 14:00-0400Body naeces495.64 cmTondra Mapus Other [employer] Other 09-13-2022 14:00-0400Body mass index (BMI) [Ratio] 28.73 kg/h6Dhiqer Mapus Other [employer] Other 09-13-2022 14:00-0400Body .74 kgTondra Mapus Other [employer] Other 09-13-2022 14:00-0400Diastolic blood mm[Hg] Tondra Mapus Other [employer] Other 09-13-2022 14:00-0400Respiratory rate16 /minTondra Mapus Other [employer] Other 09-13-2022 14:00-7954HaT8% (BldA) [Mass fraction]97 % Tona Leonardous Other [facility] Other 09-13-2022 14:00-0400Systolic blood kvzgomfh904 mm[Hg] Tondra Leonardous Other [employer] Other 08-21-2022 08:23-0400Diastolic blood lxoumsup54 mm[Hg] DO [facility]08-21-2022 08:23-0400Heart rate82 /minDO [facility]08-21-2022 08:23-0400Respiratory rate18 /minDO [facility]08-21-2022 08:23-1233YgP5% (BldA) [Mass fraction]98 %DO [facility]08-21-2022 08:23-0400Systolic blood nqvuyydy964 mm[Hg]DO [facility]08-21-2022 05:29-0400 Body ghbnxy680.[address] [facility] 12-17-2021 05:29-0400Body ptujczdqwcg57.4 [degF]DO [facility]08-21-2022 05:29-0400Body .[address] [facility]08-18-2022 06:58-0400Body hjipqe667.[address] [facility]08-18-2022 06:58-0400Body mass index (BMI) [Ratio]29.2 kg/m2DO [facility]08-18-2022 06:58-0400Body uzbwjt13.[address] [facility]08-17-2022 11:06-0400Body jrzwpimbpro61.7 [degF]DO Tray [facility]08-17-2022 11:06-0400Diastolic blood revphonp46 mm[Hg]DO [facility] 12-13-2021 11:06-0400Heart rate88 /minDO [facility]08-17-2022 11:06-0400Respiratory rate16 /minDO Tray Randle [facility]08-17-2022 11:06-1183JeB3% (BldA) [Mass fraction]93 %DO [facility]08-17-2022 11:06-0400Systolic blood myivcnyp444 mm[Hg]DO [facility]08-17-2022 08:00-0400Inhaled oxygen flow rate3 L/minDO [facility]06-16-2022 11:00-0400Body zivyju684.64 cmCrispin Looney Other [employer] Other 06-16-2022 11:00-0400Body mass index (BMI) [Ratio] 29.81 kg/o8AazltCrispin Looney Other [employer] Other 06-16-2022 11:00-0400Body .78 kgAvnisonny Looney Other [employer] Other 06-16-2022 11:00-0400Diastolic blood poloyjyw56 mm[Hg] Crispin Aayush Other [employer] Other 06-16-2022 11:00-0400Respiratory rate18 /minCrispin Looney Other [employer] Other 06-16-2022 11:00-4262QyV0% (BldA) [Mass fraction]97 % Crispin Looney Other [employer] Other 06-16-2022 11:00-0400Systolic blood fgboiumv66 mm[Hg] Crispin Looney Other [employer] Other 03-14-2022 14:30-0400Body .64 cmTondra Mapus Other [employer] Other 03-14-2022 14:30-0400Body mass index (BMI) [Ratio] 30.34 kg/r1Mwkgbr Mapus Other [employer] Other 03-14-2022 14:30-0400Body wsigbx06.28 kgTondra Mapus Other [employer] Other 03-14-2022 14:30-0400Diastolic blood nlcthgan99 mm[Hg] Tondra Mapus Other [employer] Other 03-14-2022 14:30-0400Respiratory rate16 /minTondra Mapus Other [employer] Other 03-14-2022 14:30-9150HbH5% (BldA) [Mass fraction]97 % Tondra Mapus Other [employer] Other 03-14-2022 14:30-0400Systolic blood mm[Hg] Tondra Mapus Other [employer] Other 03-07-2022 16:00-0500Body dsvams066.64 cmKanatalie Avendañoracquel Other [employer] Other 03-07-2022 16:00-0500Body mass index (BMI) [Ratio]30.5 kg/l0TjoewRuben Hahn Other [employer] Other 03-07-2022 16:00-0500Body yrouggculgj85.5 [degF]Ruben Hahn Other [employer] Other 03-07-2022 16:00-0500Body zsigqx99.73 kgRuben Hahn Other [employer] Other 03-07-2022 16:00-0500Diastolic blood yjlorwtk94 mm[Hg] Ruben Hahn Other [employer] Other 03-07-2022 16:00-2581RbH3% (BldA) [Mass fraction]99 % Ruben Hahn Other [employer] Other 03-07-2022 16:00-0500Systolic blood nvgvptzu84 mm[Hg] Ruben Hahn Other [employer] Other 01-10-2022 14:15-0500Body wfupgn258.64 cmAvnisonny Looney Other [employer] Other 01-10-2022 14:15-0500Body mass index (BMI) [Ratio] 30.87 kg/j8Nkubwsonny Looney Other [employer] Other 01-10-2022 14:15-0500Body yejoog77.77 kgCrispin Aayush Other [employer] Other 01-10-2022 14:15-0500Diastolic blood qulvhhpk99 mm[Hg] Crispin Looney Other [employer] Other 01-10-2022 14:15-0500Respiratory rate20 /minCrispin Looney Other [employer] Other 01-10-2022 14:15-1976FaC6% (BldA) [Mass fraction]98 % Crispin Looney Other [employer] Other 01-10-2022 14:15-0500Systolic blood ebkhncfz443 mm[Hg] Crispin Looney Other [employer] Other 12-06-2021 15:00-0500Body dlysof197.64 cmMattnorth Nava Other [employer] Other 12-06-2021 15:00-0500Body mass index (BMI) [Ratio] 30.99 kg/q1Tjtfqpxmonserrat Nava Other [employer] Other 12-06-2021 15:00-0500Body isyeehepcvr26.3 [degF] Tray Nava Other [employer] Other 12-06-2021 15:00-0500Body ixeddu33.09 kgMattnorth Nava Other [employer] Other 12-06-2021 15:00-0500Diastolic blood mm[Hg] Tray Nava Other [employer] Other 12-06-2021 15:00-1847NwZ2% (BldA) [Mass fraction]93 % Tray Ceballospratibha Other [employer] Other 12-06-2021 15:00-0500Systolic blood xwdxtsog908 mm[Hg] Tray Ceballospratibha Other [employer] Other 11-29-2021 15:00-0500Body qdnxri893.64 cmTondra Mapus Other [employer] Other 11-29-2021 15:00-0500Body mass index (BMI) [Ratio] 30.99 kg/n1Palygo Mapus Other [employer] Other 11-29-2021 15:00-0500Body txipfv60.09 kgTondra Mapus Other [employer] Other 11-29-2021 15:00-0500Diastolic blood oityclft66 mm[Hg] Tondra Mapus Other [employer] Other 11-29-2021 15:00-0500Respiratory rate20 /minTondra Mapus Other [employer] Other 11-29-2021 15:00-9813IvE1% (BldA) [Mass fraction]97 % Tondra Mapus Other [employer] Other 11-29-2021 15:00-0500Systolic blood zyfgxesb150 mm[Hg] Tondra Mapus Other [employer] Other 11-01-2021 16:00-0400Body .64 cmMamonserrat Nava Other [employer] Other 11-01-2021 16:00-0400Body mass index (BMI) [Ratio] 30.66 kg/o8YekpzffTray Nava Other [facility] Other 11-01-2021 16:00-0400Body csmloq03.18 kgMattnorth Nava Other [facility] Other 11-01-2021 16:00-0400Diastolic blood emjsfcle81 mm[Hg] Tray Ceballospratibha Other [facility] Other 11-01-2021 16:00-0400Systolic blood pfcuvcwg109 mm[Hg] Tray Ceballospratibha Other [employer] Other 05-01-2018 12:01-0400Body iixiwj878.18 cmDO Jonas Yoder Work Phone: [facility] Encounters Encounter DateEncounter TypeCare ProviderFacilityStart: 03-10-2025 End: 02-89-3696wgshmqylcsBOJOLPSFabián YODERFacility:[facility] Start: 03-10-2025 End: 43-65-8764vlesdnialvGMPCIIDC LEE KUZNICKIFacility:[facility] Start: 82-45-3709Jafmcnnvw for other preprocedural examinationMICHELHOLLY DOTSONTriHealth Bethesda Butler HospitalStart: 02-28-2025 End: 17-82-6749IrzyskMnsv D Bej MD Work Phone: [facility] 111Comment on above: Neurogenic painStart: 02-09-2025 End: 75-77-0187Kjouek outpatient visit 15 minutesLinwood Irwin MD Work Phone: NOUT [facility] OBGYNComment on above:Encounter for gynecological examination; Vaginal lesionStart: 02-09-2025 End: 57-69-3680Zjynvgb encounter statusLinwood Irwin MD Work Phone: [facility] HealthcareStart: 02-09-2025 End: 35-16-5639lxhfglqutwRDRUDB P JONESNot AvailableStart: 02-02-2025 End: 69-43-1704Kejppn OnlyLinwood Irwin MD Work Phone: [facility] External Department UnsolicitedStart: 02-02-2025 End: 41-83-2007Ijixvv outpatient visit 10 minutesLinwood Irwin MD Work Phone: noUT [facility] OBGYNComment on above:Encounter for gynecological examination; Vaginal lesion; Encounter for gynecological examination without abnormal finding; Encounter for screening for cervical cancer; Breast cancer screening by mammogramStart: 02-02-2025 End: 25-26-4244Xsyickh encounter statusLinwood Irwin MD Work Phone: noUT HealthcareStart: 02-02-2025 End: 84-34-1220Ppldzec encounter procedureShantel Norton APRN PATTERN REPAIR PERSON-[facility] [place] Work Phone: Start: 02-02-2025 End: 04-65-9839vpcdgunuafGcfeuolv Rohrbacher APRN Work Phone: [facility] Work Phone: Start: 01-19-2025 End: 79-12-6047kikbakjdtbFNJH D BEJNot AvailableStart: 01-19-2025 End: 77-03-5602Ftwegk outpatient visit 15 minutesOz Kincaid MD Work Phone: noUT [facility] NeurologyComment on above: Weakness of both lower extremities (Primary Dx); Carpal tunnel syndrome, bilateral; Cognitive decline; Cervical paraspinal muscle spasm; B12 deficiency; Guyon syndrome, unspecified lateralityStart: 01-19-2025 End: 22-91-4527Uomkqm flowsheetOz Kincaid MD Work Phone: [facility] NEUROLOGYStart: 01-19-2025 End: 49-75-9918Quuhnr flowsheetOz Kincaid MD Work Phone: [facility] NEUROLOGYStart: 01-12-2025 End: 81-43-5445banxjhustgPbhqxoar Cierra GODDARD Work Phone: [facility] Work Phone: Start: 01-12-2025 End: 89-81-2788Myqzjvd encounter procedureShantel Norton APRN [facility] Work Phone: Start: 01-05-2025 End: 54-95-7886xovjxemiylCzmmvmha Rohrbacher APRN Work Phone: [facility] Work Phone: Start: 01-05-2025 End: 55-51-9501Btdxspn encounter procedureAngelique Russell [facility] Work Phone: Start: 12-31-2024 End: 50-97-8083nwlhvleacuZAJY D BEJNot AvailableStart: 23-08-9163Szm-patient / Non-visitDarasta Medina MD-[facility] Work Phone: Start: 12-30-2024 End: 91-30-5272Oqashk outpatient visit 15 minutesMolurdes Faust MD Work Phone: [facility] CenterComment on above:Typical atrial flutter (Multi) (Primary Dx); Nonischemic cardiomyopathy (Multi); Hypertension, unspecified type; Hypercholesteremia; Obesity (BMI 30-39.9); Current smokerStart: 12-30-2024 End: 88-83-0706fgmuovijafYLQIVCOColumbia [facility] AmbulatoryStart: 12-24-2024 End: 40-02-0775Fapfgit encounter procedureSamm Medina MD-Sleep Lab Work Phone: Start: 12-24-2024 End: 90-80-4978sdgfrykiolDsoqtt A Pixsta Work Phone: [facility] Work Phone: Start: 12-18-2024 End: 29-46-8109Farmxdx encounter Lenore Kincaid MD Work Phone: noms [facility] NeurologyComment on above: Numbness (Primary Dx); Paresthesias; Pain in both lower extremities; Lumbosacral radiculopathy at N2Gyvfr: 12-18-2024 End: 89-92-8027sysehsqaudLVLR D BEJNot AvailableStart: 12-15-2024 End: 85-19-9391dbexysbmgcDmilid A Pixsta Work Phone: [facility] Work Phone: Start: 12-15-2024 End: 25-83-4402Cvajrqg encounter procedureShantel Norton APRN [facility] Work Phone: Start: 12-11-2024 End: 14-45-9877ssylbtvsijERBS D BEJNot AvailableStart: 12-11-2024 End: 60-47-2671Uvpwdsw encounter Lenore Kincaid MD Work Phone: noms [facility] NeurologyComment on above: Hand weakness (Primary Dx); Carpal tunnel syndrome, bilateralStart: 11-23-2024 End: 22-07-8668Vkbrhr outpatient visit 15 minutesKarl Fritz DPM Work Phone: NOMS [facility] PodiatryComment on above:Ulcer of right foot with fat layer exposed (HCC) (Primary Dx); 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); Abscess of right foot; At increased risk for emergency hospital admissionStart: 11-23-2024 End: 63-52-5797saxdymjgclYFNPLWBSD H SMITHNot AvailableStart: 11-23-2024 End: 62-50-2450Whyqjv flowsheetKarl Fritz DPM Work Phone: no [facility] PodiatryStart: 11-23-2024 End: 66-98-5969Ieyrkb flowsheetKarl Fritz DPM Work Phone: noms [place] PodiatryStart: 11-16-2024 End: 36-94-5910Wolxafzh ReferredKarl Fritz DPM-Lab [facility] [place] Work Phone: Start: 11-16-2024 End: 94-68-0633Yumtjt outpatient visit 25 minutesCarebecca Fritz DPM Work Phone: noms SWS PODIATRYComment on above:Ulcer of right foot with fat layer exposed (HCC) (Primary Dx); 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); Cellulitis of right foot; Deformity of toe, rightStart: 11-16-2024 End: 72-92-2446jssruaizpdThzegj Rebecca Keita DO Work Phone: [facility] Work Phone: Start: 11-16-2024 End: 74-47-3150Mcbdzxgo Result EncounterKarl Fritz DPM Work Phone: noms External Department UnsolicitedStart: 11-16-2024 End: 22-36-4171Xasecguu Result EncounterKarl Fritz DPM Work Phone: noms External Department UnsolicitedStart: 11-09-2024 End: 43-30-2226tqfihjowzgOayeqdr Romario Marc MDFacility:PM Ac Start: 10-31-2024 End: 01-69-8846RzhbhaCikn D Bej MD Work Phone: noms [facility] NEURO 111Comment on above:Neurogenic pain Start: 10-21-2024 End: 28-06-4331Cngtjkazr encounterOz Kincaid MD Work Phone: noms [facility] NEURO 111Start: 10-20-2024 End: 77-29-5444Ohndsv flowsheetKarl Fritz DPM Work Phone: noms [facility] PODIATRYStart: 10-20-2024 End: 18-60-4806Yhzksq flowsheetKarl Phi Lam DPM Work Phone: noms [facility] PODIATRYStart: 10-20-2024 End: 09-20-0932Wldsxt outpatient visit 25 minutesCarebecca Phi Lam DPM Work Phone: noms [facility] PODIATRYComment on above:Ulcer of right foot with fat layer exposed (HCC) (Primary Dx); 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); Blister of right foot, initial encounter; Deformity, foot, rightStart: 10-20-2024 End: 30-81-9312cgfzjywovcDSFXDDANF H SMITHNot AvailableStart: 10-07-2024 End: 85-62-5170Upflcwgsy encounterOz Kincaid MD Work Phone: noms [facility] NEURO 111Start: 10-06-2024 End: 57-09-8782Bsjpaz flowsheetOz Kincaid MD Work Phone: noms NEUROLOGYStart: 10-06-2024 End: 07-73-7532Hpriru flowsMleania Kincaid MD Work Phone: noms NEUROLOGYStart: 10-06-2024 End: 75-50-4473Icvkgk outpatient visit 25 minutesOz Kincaid MD Work Phone: noms [facility] NEUR BComment on above:Weakness of both lower extremities (Primary Dx); Carpal tunnel syndrome, bilateral; Cognitive decline; Cervical paraspinal muscle spasm; B12 deficiency; Guyon syndrome, unspecified laterality; Numbness; Leg pain, left; Leg pain, right; Bilateral leg weaknessStart: 10-06-2024 End: 33-98-0893dnxigvcfzhSMEW D BEJNot AvailableStart: 10-05-2024 End: 22-21-9190ewopyaqhwrTaxzvbiAldair Marc MDFacility:PM Ac Start: 10-01-2024 End: 03-42-9718nkcosjsdldPfxwup A Keita DO Work Phone: [facility] Work Phone: Start: 10-01-2024 End: 92-22-6285Arkipwi encounter procedureGloria Keita DO Work Phone: [facility] Sleep [facility] Work Phone: Start: 81-60-0687Ebl-patient / Non-visitGloria Keita DO Work Phone: [facility] Gastro Work Phone: Start: 09-10-2024 End: 44-00-2328Woyiwlcml to same day surgery centerGloria Keita DO Work Phone: [facility]-Digestive Health Work Phone: Start: 09-10-2024 End: 62-67-9846bcrfdzkammSbaasc A Keita DO Work Phone: [phone] [place] [address] Work Phone: Start: 09-07-2024 End: 57-78-2472bkkiiqrkeeOmcjyz A Keita DO Work Phone: [facility] Work Phone: Start: 09-07-2024 End: 84-27-3794Xlkthvq encounter procedureGloria Keita DO Work Phone: [facility] Neurosurgery Work Phone: start: 08-25-2024 End: 46-96-5388qdjvbpddhnKcptag A Keita DO Work Phone: [facility] Work Phone: Start: 08-25-2024 End: 50-73-1396Ksezdnf encounter procedureGloria Keita DO Work Phone: [facility] GroupSouth[facility] [place] Work Phone: Start: 08-20-2024 End: 36-14-8119cpkojmqcflLwioga A Debbie DO Work Phone: [facility] Work Phone: Start: 08-20-2024 End: 45-62-3839Xawrbmm encounter procedureGloria Debbie DO Work Phone: [facility] Work Phone: Start: 07-22-2024 End: 46-37-7904Okbpeeq encounter procedureGloria Keita DO Work Phone: [facility] Vascular Surg Work Phone: Start: 07-22-2024 End: 27-71-4954ulsnrifwtxEfzzae A Keita DO Work Phone: [facility] Work Phone: Start: 07-21-2024 End: 50-91-8058Fmljka outpatient visit 15 minutesOz Kincaid MD Work Phone: noms S[facility] NEUR BComment on above:Cognitive decline (Primary Dx); Cervical paraspinal muscle spasm; B12 deficiency; Carpal tunnel syndrome, bilateral; Guyon syndrome, unspecified laterality; Neurogenic painStart: 07-21-2024 End: 42-04-8975abiqvqiwacPTJF D BEJNot AvailableStart: 07-06-2024 End: 12-95-7501ulhcmlhnfvGujoyu A Debbie DO Work Phone: [facility] Work Phone: Start: 07-06-2024 End: 71-46-6772Qkyiyhiu ReferredGloria Debbie DO Work Phone: [facility]-LAB Path Spec [facility] HospStart: 06-26-2024 End: 76-16-8452Bhgmzzra Result EncounterNataliya Jane NP Other Phone: noms External Department UnsolicitedStart: 06-26-2024 End: 13-88-8899Ruvfhbrv Result EncounterNataliya Jane TOP PRECIPITATOR OPERATOR HELPER Other Phone: noms External Department UnsolicitedStart: 06-26-2024 Registered RecurringGloria Debbie DO Work Phone: [facility]-Cancer Center Acute Work Phone: Start: 06-26-2024 End: 12-02-3859Zchutzb encounter procedureGloria Debbie DO Work Phone: [facility]-Lab [facility] [place] Work Phone: Start: 06-26-2024 End: 12-38-5252fzlvndvadgEolrnw A Debbie DO Work Phone: [facility] Work Phone: Start: 06-26-2024 End: 49-14-2710Hhryjr outpatient visit 25 minutesMolurdes Faust MD Work Phone: uh FirelandsComment on above:Typical atrial flutter (Multi) (Primary Dx); Nonischemic cardiomyopathy (Multi); Hypercholesteremia; Hypertension, unspecified type; BMI 32.0-32.9,adult; Current smokerStart: 06-26-2024 End: 20-47-9847xkzxetsrndSKUIERZEmory [facility] AmbulatoryStart: 16-08-4909Qir-patient / Non-visitGloria Debbie DO Work Phone: [facility] ER Work Phone: Start: 05-25-2024 End: 80-56-5114Gctzvco encounter procedureGloria Debbie DO Work Phone: [facility]-MRI [place] Work Phone: Start: 05-25-2024 End: 03-07-1215uzuzlqmnifJsfmfc Rebecca Debbie DO Work Phone: [facility] Work Phone: Start: 05-19-2024 End: 52-49-2687Ehasuchct encounterOz Kincaid MD Work Phone: noms [facility] NEURO 111Start: 05-07-2024 End: 93-39-3697msjvdmjzxaQpmjvg A Debbie DO Work Phone: [facility] Work Phone: Start: 05-07-2024 End: 69-93-7237Xohqgac encounter procedureGloria Debbie DO Work Phone: [facility] GroupSc[facility] Work Phone: Start: 04-28-2024 End: 83-26-8261Ohjigkennq and management of inpatientGloria Debbie BONNER Work Phone: [facility]-[address] [place] Med Surg Work Phone: Start: 04-28-2024 End: 51-51-4365ynhlktdxpmDxjihs A Debbie BONNER Work Phone: [facility] Work Phone: Start: 04-28-2024 End: 87-23-3932Ixgozhh encounter procedureGloria Debbie DO Work Phone: [facility]SA[facility] Work Phone: Start: 04-28-2024 End: 19-70-7319Wlrpklb encounter procedureGloria Debbie DO Work Phone: [facility] Work Phone: Start: 04-27-2024 End: 65-95-2520Yumhcspde department patient visitGloria Debbie DO Work Phone: [facility]-Emergency Room Work Phone: Start: 04-14-2024 End: 45-74-0639Irflepgc Result EncounterNataliya Jane TOP PRECIPITATOR OPERATOR HELPER Work Phone: NOMS External Department UnsolicitedStart: 04-14-2024 End: 56-27-8699Chbbxemw Result EncounterNataliya Jane TOP PRECIPITATOR OPERATOR HELPER Work Phone: noms External Department UnsolicitedStart: 04-14-2024 End: 91-62-6778Cumrbgn encounter procedureGlsenait Keita DO Work Phone: [facility] GroupCancer Center Ambulatory Work Phone: Start: 04-08-2024 End: 62-85-9524Dcazozo encounter procedureCarebecca Fritz DPM Work Phone: noms SWS PODIATRYComment on above:Ulcer of right foot, limited to breakdown of skin (CMS/HCC) (Primary Dx); Ulcer of right foot with fat layer exposed (CMS/HCC); 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)Start: 04-08-2024 End: 70-95-4811bhmuknanxeVWAYNBQFI H SMITHNot AvailableStart: 04-07-2024 End: 69-64-5419Cczfmx Cecilia Kincaid MD Work Phone: noms BM NEUROLOGYStart: 04-07-2024 End: 75-23-4431Epnynj Cecilia Kincaid MD Work Phone: noms BM NEUROLOGYStart: 04-07-2024 End: 12-26-5252Nammcx outpatient visit 15 minutesOz Kincaid MD Work Phone: noms SWS NEUR BComment on above:Cognitive decline (Primary Dx); B12 deficiency; Neurogenic pain; Carpal tunnel syndrome, bilateral; Cervical paraspinal muscle spasm; Guyon syndrome, unspecified laterality; GranulocytosisStart: 04-07-2024 End: 02-33-2119bgrbrxdjhdLOCB D BEJNot AvailableStart: 03-25-2024 End: 97-02-7340upbpipehllQIBMYHDColumbia University [facility] AmbulatoryStart: 03-25-2024 End: 62-57-9821Xmtsiw outpatient visit 10 minutesRoland Faust MD Work Phone: [facility] CenterComment on above:Hypertension, unspecified type; Typical atrial flutter (Multi)Start: 02-25-2024 End: 97-15-2584Oipzng outpatient visit 25 minutesOz Kincaid MD Work Phone: noms [facility] NEUR BComment on above:Cognitive decline (Primary Dx); Neurogenic pain; Carpal tunnel syndrome, bilateral; B12 deficiencyStart: 02-25-2024 End: 11-26-5337Wdgydx Cecilia Kincaid MD Work Phone: noms NEUROLOGYStart: 02-25-2024 End: 48-73-0429Jhzwiz Cecilia Kincaid MD Work Phone: noms NEUROLOGYStart: 02-25-2024 End: 82-09-3901hdczinhgjnZMNH D BEJNot AvailableStart: 02-14-2024 End: 94-28-8032kdhpaavjsjNjnsmd Rebecca Keitacility:[facility] Hospitaltart: 02-14-2024 End: 15-51-2027Hwgxrsmz ReferredGloria Keita DO Work Phone: [facility]-Digestive Health Work Phone: Start: 02-10-2024 End: 48-90-9764Nkmzhs flowsTayler Fritz DPM Work Phone: noms [facility] PODIATRYStart: 02-10-2024 End: 12-49-6601Tttmpm flowsTayler Fritz DPM Work Phone: noms [facility] PODIATRYStart: 02-10-2024 End: 16-68-0185Mdvczb outpatient visit 15 minutesCarebecca Fritz DPM Work Phone: noms [facility] PODIATRYComment on above:Ulcer of right foot, limited to breakdown of skin (CMS/HCC) (Primary Dx); Blister of right foot, subsequent encounter; 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); Ulcer of right foot with fat layer exposed (CMS/HCC)Start: 02-03-2024 End: 97-42-7677obaiychmlhSC Sandra Keita Work Phone: [facility] Work Phone: Start: 02-03-2024 End: 80-16-6503Tewmsrj encounter procedureDO Sandra Keita Work Phone: [facility] GroupF[facility] [place] Work Phone: Start: 01-27-2024 End: 93-93-7726Zwbcug flowsTayler Fritz DPM Work Phone: noms [facility] PODIATRYStart: 01-27-2024 End: 87-02-2336Mnzqig flowsTayler Fritz DPM Work Phone: noms [facility] PODIATRYStart: 01-27-2024 End: 23-21-0215Ogddfp outpatient visit 15 minutesKarl Fritz DPM Work Phone: noms [facility] PODIATRYComment on above:Ulcer of right foot, limited to breakdown of skin (CMS/HCC) (Primary Dx); Blister of right foot, subsequent encounter; 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)Start: 01-21-2024 End: 32-83-7223Lagkga flowsTayler Fritz DPM Work Phone: noms [facility] PODIATRYStart: 01-21-2024 End: 29-26-4316Ddfgwh flowsTayler Fritz DPM Work Phone: noms [facility] PODIATRYStart: 01-21-2024 End: 96-31-3528Mrivij outpatient visit 15 minutesKarl Fritz DPM Work Phone: noms SWS PODIATRYComment on above:Ulcer of right foot, limited to breakdown of skin (CMS/HCC) (Primary Dx); Blister of right foot, initial encounter; 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)Start: 01-15-2024 End: 90-64-5213zzimqgkmpeKX Sandra Fernandez Keita Work Phone: [facility] Work Phone: Start: 01-15-2024 End: 87-13-0799Climsad encounter procedureDO Sandra Keita Work Phone: [facility] Neurosurgery Work Phone: start: 01-08-2024 End: 72-29-6509Joxhworxz encounterOz Kincaid MD Work Phone: noms [facility] NEURO 111Start: 01-07-2024 End: 66-50-2281Pgeznv flowsTyaler Fritz DPM Work Phone: noms [facility] PODIATRYStart: 01-07-2024 End: 06-62-2471Hhkelh Amalia Fritz DPM Work Phone: noms [facility] PODIATRYStart: 01-07-2024 End: 75-39-1649Kbxkfm outpatient visit 25 minutesOz Kincaid MD Work Phone: noms [facility] NEUR BComment on above:Lumbosacral radiculopathy at S1 (Primary Dx); Neurogenic pain; Cervical paraspinal muscle spasm; Lumbar paraspinal muscle spasm; Carpal tunnel syndrome, bilateral; B12 deficiencyStart: 01-07-2024 End: 73-11-6069ixmbwrvyuwIM Sandrarebecca Keita Work Phone: [facility] Work Phone: Start: 01-07-2024 End: 31-14-6129Khbqyxux ReferredDO Sandra Keita Work Phone: [facility]-Lab [address] [place] Work Phone: Start: 01-07-2024 End: 82-05-4685Nsnrgj outpatient visit 25 minutesCarebecca Fritz DPM Work Phone: noms [facility] PODIATRYComment on above:Ulcer of right foot, limited to breakdown of skin (CMS/HCC) (Primary Dx); Cellulitis of right footStart: 01-06-2024 End: 94-56-1842zyznrnezhkPONona Keita Work Phone: [facility] Work Phone: Start: 01-06-2024 End: 08-12-0580Hqpirrh encounter procedureDO Sandra Keita Work Phone: [facility]-Ultrasound [place] Work Phone: Start: 01-03-2024 End: 41-52-8783Yfdiusya SupportOz Kincaid MD Work Phone: noms SWS NEUR BComment on above:Carpal tunnel syndrome, bilateral (Primary Dx)Start: 01-03-2024 End: 66-81-7588Vijgqd Cecilia Kincaid MD Work Phone: noms BM NEUROLOGYStart: 01-03-2024 End: 57-28-5577Fyyckn Cecilia Kincaid MD Work Phone: noms BM NEUROLOGYStart: 12-17-2023 End: 89-06-7705ajgyaeqvdaYONona Keita Work Phone: [facility] Work Phone: Start: 12-17-2023 End: 07-74-6866Tcihgwb encounter procedureDO Sandra Keita Work Phone: [facility]-MRI [address] Work Phone: Start: 12-16-2023 End: 40-81-1697Dlrfzc outpatient visit 25 minutesMolurdes Faust MD Work Phone: uh FirelandsComment on above:High risk medication use (Primary Dx); Typical atrial flutter (Multi); Nonischemic cardiomyopathy (Multi); Hypercholesteremia; BMI 28.0-28.9,adult; BMI 30.0-30.9,adult; Current smokerStart: 12-02-2023 End: 85-95-7266rfjemwbvqaIB Sandra A Keita Work Phone: [facility] Work Phone: Start: 12-02-2023 End: 72-26-8188Yqgsieh encounter procedureDO Sandra Keita Work Phone: [facility]-Lab [facility] [place] Work Phone: Start: 11-26-2023 End: 89-59-6918ywwkdwvrzlMC Sandra A [facility] Work Phone: [facility] Work Phone: Start: 11-26-2023 End: 86-38-4869Xhjhcog encounter procedureDO Sandra Keita Work Phone: [facility]-Lab [place] Work Phone: Start: 11-26-2023 End: 10-86-1356Qroqqpwa Result EncounterMark Lillian Kincaid MD Work Phone: noms External Department UnsolicitedStart: 11-26-2023 End: 27-58-2664Sqltimau Result EncounterMark Lillian Kincaid MD Work Phone: noms External Department UnsolicitedStart: 11-18-2023 End: 15-43-3628qkzubqrrwqKY Sandra Fernandez Keita Work Phone: [facility] Work Phone: Start: 11-18-2023 End: 27-08-3684Ooizqkz encounter procedureDO Sandra Keita Work Phone: [facility] Family Medicine [place] Work Phone: Start: 60-09-4033Wkh-patient / Non-visitDO Sandra Keita Work Phone: [facility] Pulmonary Disease Work Phone: Start: 11-15-2023 End: 34-74-2125znhzjodlhaBG Sandra Keita Work Phone: [facility] Work Phone: Start: 11-15-2023 End: 72-60-3675Kkhqlva encounter procedureDO Sandra Keita Work Phone: [facility]-Respiratory Therapy Work Phone: Start: 11-14-2023 End: 73-52-5495bzyktzdokvWS Sandra Fernandez Keita Work Phone: [facility] Work Phone: Start: 11-14-2023 End: 40-14-2845Ofzpzki encounter procedureDO Sandra Keita Work Phone: [facility] Work Phone: Start: 11-13-2023 End: 65-87-1102Xhofhk outpatient visit 25 minutesJonas Ch MD Work Phone: uh [facility]Comm[facility] on above:Nonischemic cardiomyopathy (Multi) (Primary Dx); Typical atrial flutter (Multi); Hypercholesteremia; Primary hypertension; Current smoker; BMI 28.0-28.9,adult; High risk medication useStart: 21-42-6925Qvd-patient / Non-visitDO Sandra Debbie Work Phone: [facility]Sc[facility] Work Phone: Start: 11-10-2023 End: 97-87-1903Lrztvajpam and management of inpatientDO Sandra Keita Work Phone: [facility]-4 [facility] Work Phone: Start: 11-05-2023 End: 88-00-9440Itpgrloys to same day surgery centerDO Flores Keita Work Phone: [facility]-Electrodiagnostics Work Phone: Start: 11-05-2023 End: 84-77-5646odthplodloZF Gloria A Keita Work Phone: [facility] Work Phone: Start: 10-30-2023 End: 79-69-2102Jekzzqiq Result EncounterOz Kincaid MD Work Phone: noms External Department UnsolicitedStart: 10-30-2023 End: 79-45-2410Kjfhvdnj Result EncounterOz Kincaid MD Work Phone: noms External Department UnsolicitedStart: 10-30-2023 End: 12-54-8598gwasnbdznlSYNona Keita Work Phone: [facility] Work Phone: Start: 10-30-2023 End: 05-77-8063Enhemew encounter procedureDO Sandra Keita Work Phone: [facility]-XRay [facility] Work Phone: Start: 10-07-2023 End: 38-57-9096Alredl outpatient visit 25 minutesJonas Ch MD Work Phone: uh [facility]hriners hospitals for childrenComment on above:Typical atrial flutter (Multi); Nonischemic cardiomyopathy (Multi); Hypertension, unspecified type; Hypercholesteremia; Smoker; Type 2 diabetes mellitus with other specified complication, 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 insulin use (Multi); BMI 28.0-28.9,adultStart: 09-17-2023 End: 50-96-8617pqwxljnagxBVNona Keita Work Phone: [facility] Work Phone: Start: 09-17-2023 End: 08-78-1951Ncojxtl encounter procedureDO Sandra Keita Work Phone: [facility] Family [facility] Work Phone: Start: 62-63-7802Eux-patient / Non-visitDO Sandra Debbie Work Phone: [facility] [place] Work Phone: Start: 09-14-2023 End: 25-57-6012Lld-patient / Non-visitDO Sandra Debbie Work Phone: [facility] Cardiology Work Phone: Start: 09-13-2023 End: 98-37-4513Kjuqxoxhzt and management of inpatientDO Sandra Debbie Work Phone: [facility] [place] [facility] Work Phone: Start: 09-12-2023 End: 04-84-2559Yfsuwsb encounter procedureDO Sandra Debbie Work Phone: [facility] Work Phone: Start: 88-14-7112Bda-patient / Non-visitDO Sandra Debbie Work Phone: [facility] [place] Work Phone: Start: 09-05-2023 End: 89-08-5903swsfbxhrspXL Sandra A Keita Work Phone: [facility] Work Phone: Start: 09-05-2023 End: 33-68-7766Uuudiyu encounter procedureDO Sandra Debbie Work Phone: [facility]-Lab [facility] [place] Work Phone: Start: 07-25-2023 End: 84-84-8617gymteqitoeOC Sandra A Keita Work Phone: [facility] Work Phone: Start: 07-25-2023 End: 70-26-4160Rutzfzh encounter procedureDO Sandra Debbie Work Phone: [facility]-[address] Work Phone: Start: 07-17-2023 End: 91-05-2240aqtwbcyvxuFfnptmsrqCrystal Clinic [facility] Work Phone: Start: 07-17-2023 End: 19-72-0111Lkmwmzo encounter procedureCritical Access Hospital Physician [facility] Vascular Surgery Work Phone: Start: 06-19-2023 End: 60-49-0620kxfhkpjvrsAnfzqrvyhCrystal Clinic Orthopedic Center Work Phone: Start: 06-19-2023 End: 02-64-1766Lmfnnpd encounter procedureCritical Access Hospital Physician [facility] Family Medicine [place] Work Phone: Start: 06-12-2023 End: 06-43-3250hjioorlfnpUtjtnyuvmCrystal Clinic Orthopedic Center Work Phone: Start: 06-12-2023 End: 94-15-0607Bushnrk encounter procedureCritical Access Hospital Physician Group-[facility] Work Phone: Start: 06-10-2023 End: 93-05-7969aztknzmfwmPhzorm [employer] Other [employer] Other Start: 35-73-4197Rrqxsunbf encounterTondra Mapus [facility] Hospitaltart: 05-21-2023 End: 88-61-6301ssfqvyslgvFcknej Keita Other [employer] Other Start: 39-16-8232Rawxjohit encounterGloria DebbieWINSLOW INDIAN HEALTH[facility]ARE [facility]ENTER Family Medicine SandfrenchvilleyStart: 04-30-2023 End: 06-60-9699zzpusbdqarPkejtj [employer] Other [employer] Other Start: 01-55-5088Lustekmzt encounterTondra Yvonne [facility] ClinicStart: 04-11-2023 End: 56-70-4441ufjnympexlAocnyh Johns Other [email or web address] Other Start: 66-77-3407Ubaqtsjjy encounterGloria DebbieBanner Lassen Medical CenteryStart: 04-08-2023 End: 54-38-5119tnlvmmfaubCubdle Johns Other [employer] Other Start: 70-69-7445Awmykdtsn encounterGloria DebbieBanner Lassen Medical CenteryStart: 03-05-2023 End: 97-68-2064yvvaxiztljXW Jonas Yoder Work Phone: [facility] Work Phone: Start: 03-05-2023 End: 05-85-9983Ymwzfoz encounter Navid Yoder Work Phone: [facility] Work Phone: Start: 03-04-2023 End: 40-30-1927gqvwjpsnpbNmzalf Johns Other [email or web address] Other Start: 88-04-3851Hjjalz outpatient visit 25 minutes Sandra DebbieVencor HospitaluskyStart: 01-28-2023 End: 12-59-3084wxtewaiyewEvatvj Johns Other [facility] DNA Guide Other Start: 13-57-0929Hjeehvkat encounterGloria DebbieBanner Lassen Medical CenteryStart: 75-26-9908Qwmgfapylc RecurringDO Jonas Yoder Work Phone: [facility] Work Phone: Start: 01-07-2023(DM) DiabetesTondra YvonneEcu Health Chow[facility] Hospitals Coordinated Care ClinicStart: 01-07-2023 End: 21-83-7671uwdxcxtvyvZzivul Yvonne Other [email or web address] Other Start: 01-02-2023 End: 12-00-2205cpqchqfnslYiippduk McCormack Other nort [employer] Guide Other Start: 51-59-0907Ycdlrp outpatient visit 15 minutes Brayden [facility]WINSL[facility] GastroenterologyStart: 12-28-2022 End: 31-08-7150mcphufqcpzMnzohi Debbie Other [facility] DNA Guide Other Start: 75-43-7998Zvwkqmrvv encounterGloria DebbieBanner Lassen Medical CenteryStart: 12-18-2022 End: 09-91-0625gnknotzngeCjjsnmv Schwerer Other [facility] DNA Guide Other Start: 00-58-3051Kwugqlyue encounterKaitlin Schwerer [facility] CenteryStart: 12-10-2022 End: 95-93-4202eehwfpwspkObcovr Mapus Other [facility] DNA Guide Other Start: 42-40-5143Hsygafypz encounterTondra [facility]vonne [facility] ClinicStart: 11-28-2022 End: 87-13-2110qlfmmcfetsErbooc Keita Other [place] Other Start: 01-04-3144Ajsduum encounter procedureGloria JohnsBanner Lassen Medical CenteryStart: 11-27-2022 End: 70-88-8952sludbxoyclEbhibd Keita Other [email or web address] DNA Guide Other Start: 61-29-8317Dbimhpijy encounterGloria Gateway Medical CenteryStart: 11-06-2022 End: 57-67-8439fehcauclupLunbfy Keita Other [facility] DNA Guide Other Start: 71-57-7197Xflryolyz encounterGloria Gateway Medical CenteryStart: 09-27-2022(DM) DiabetesTondra MapusTrinity Health System [facility] Campus ClinicStart: 09-27-2022 End: 30-11-5628ttxgzxkqhmVerqtn Leonardous Other [employer] [employer] Guide Other Start: 09-10-2022 End: 89-71-1287mtwwvicghaSptrht Keita Other [facility] DNA Guide Other Start: 86-82-6569Psrcgmtdl encounterGloria Gateway Medical CenteryStart: 07-69-7630Yqjiirwlv encounterGloria Gateway Medical CenteryStart: 09-05-2022 End: 47-79-8022woedkxuiswTO Sandra A [facility] Work Phone: [facility] Work Phone: Start: 09-05-2022 End: 71-27-0501Meoeaeq encounter procedureDO Sandra [facility] Work Phone: [facility] Work Phone: Start: 21-43-0529Zwhabbwql encounterGloria Gateway Medical CenteryStart: 08-22-2022 End: 00-39-2324nteexjkfhfTK Sandra A [facility] Work Phone: [facility] Work Phone: Start: 08-22-2022 End: 31-23-7591Txccwae encounter procedureDO Sandra [facility] Work Phone: [facility] Work Phone: Start: 08-09-2022 End: 66-39-5038lyxpwahyyhWptuhc Keita Other [email or web address] Other Start: 68-81-2690Msqlvh outpatient visit 15 minutes Sandra DebbieWINSLOW INDIAN [facility] Family Medicine [place]: 08-06-2022 End: 07-42-1167ukqexqehnpRtltzd Keita Other [facility] DNA Guide Other Start: 29-74-6212Myxxlpndm encounterGloria JohnsWINSLOW INDIAN HEALTH[facility]ARE C[facility] Family Medicine [place]Start: 07-10-2022 End: 43-04-3259gwjjmilhaeWnrtjm Keita Other [facility] DNA Guide Other Start: 98-64-2892Htjfvypmj encounterGloria JohnsWINSLOW INDIAN HEALTH[facility] Family Medicine [place]Start: 07-04-2022 End: 98-00-1533fbmhpqjwetPwsqutb Rita Other [facility] DNA Guide Other Start: 22-75-2006Opjatybvs encounterRichard BinksWINSLOW INDIAN HEALTH[facility] Family Medicine [place]Start: 06-19-2022 End: 08-23-7931sooybgucujStxdsq Mapus Other [facility] DNA Guide Other Start: 06-98-3891Vxapgmpay encounterTondra Leonardous [facility] ClinicStart: 06-18-2022(DM) DiabetesTondra Leonardous [facility] ClinicStart: 06-18-2022 End: 64-38-9003jmtwiaxfclDvlqxu Mapus Other [facility] DNA Guide Other Start: 06-14-2022 End: 08-78-8174jibyxusisgEtwcdl [place] Other [employer] Other Start: 80-06-7624Ohdennzng encounterTondra Yvonne [facility] ClinicStart: 06-08-2022 End: 64-38-7276hyqjuhmiydCocvzu Yvonne Other [employer] Other Start: 02-46-1087Wfdwkfmme encounterTondra [facility] ClinicStart: 06-04-2022 End: 07-85-0220olsllehyrtIovrvg Keita Other [employer] Other Start: 12-28-6788Usfcjekrh encounterGloria JohnsBanner Lassen Medical CenteryStart: 05-30-2022 End: 34-26-7617kpyzecjmqmHtvdlp Keita Other [employer] Other Start: 45-49-1015Tggdhcnkw encounterGloria JohnsBanner Lassen Medical CenteryStart: 05-24-2022 End: 02-40-1474ablunwtmxjNioqzi Keita Other [employer] Other Start: 91-86-0794Xhhagdqig encounterGloria JohnsHighlands-Cashiers [facility]: 04-03-2022 End: 89-37-4369sryrnhsixkFujwmj Keita Other [employer] Other Start: 61-70-3408Qaevfmhay encounterGloria JohnsHighlands-Cashiers Hospital: 02-14-2022 End: 86-91-6604xdqufucyhtXfnndk Keita Other [employer] Other Start: 15-91-2399Usmsvadao encounterGloria JohnsHighlands-Cashiers Hospital: 01-09-2022(DM) DiabetesTondra Ana Cristina Coordinated Care ClinicStart: 01-09-2022 End: 34-87-9873swslwgdxsqAxklog Leonardous Other [facility] DNA Guide Other Start: 78-39-0478tilhugdmqzIbojc QuianaKenisha LueFacility: [place]kyStart: 85-84-4961hexxxaypspRrdkyzfh A ClemonsFacility: NorwalkStart: 12-17-2021 End: 64-05-3714Ehhvlhkkz department patient visitDO Tray MorrismilanWooster Community Hospital Ctr-Emergency RoomStart: 94-80-7485vbecoznhdkRwtffyzb Tom Facility:[facility]s include [facility] beds at the [facility]uskyStart: 12-12-2021 End: 97-40-0920klbgeojiodPEGBMX AHUJAFacility:CD:[id number]: 12-11-2021 End: 22-27-7211wheeothrexYIVLEM AHUJAFacility:CD:[id number]: 12-09-2021 End: 68-33-0007Bxtvschnco and management of inpatientDO Tray Randle [facility] [place] Med SurgStart: 10-12-2021 End: 72-99-5965ndwvbdrcbvBhsxf Carnahan Other [facility] DNA Guide Other Start: 94-69-2838Agyyftm encounter procedureKevin [facility] Medicine [place]Start: 27-20-2910Jjlktgczp encounterKevin [facility] SadieuskyStart: 09-13-2021 End: 74-83-9165iapdnidcutMvndv Carnahan Other [email or web address] DNA Guide Other Start: 32-15-7244Tejdqsyfi encounterKevin [facility] Medicine [place]Start: 08-28-2021 End: 73-98-3214zgflkjmzwrRdhdpz [place] Other [facility] DNA Guide Other Start: 80-78-3967Hefgbhbxo encounterTondra MapusFPG EndocrinologyStart: 07-10-2021(DM) DiabetesTondra MapusFirelands Coordinated Care ClinicStart: 07-10-2021 End: 69-98-5343msvswonlrrBpmado Mapus Other [facility] DNA Guide Other Start: 07-03-2021 End: 39-77-9107hfptsjakmvLpywv Chaban Other nort [employer] Guide Other Start: 33-05-3736Rccqnb outpatient new 30 minutesWayne Hospital SouthStart: 06-28-2021 End: 42-42-6909ithaxamsdgWzqic Carnahan Other nort [employer] Guide Other Start: 69-67-2584Kdxpzbrmr encounterKevin CarnHouse of the [facility] Medicine [place]Start: 05-25-2021 End: 72-88-2830anuspnvukcKyrfh Aayush Other [facility] DNA Guide Other Start: 67-43-1890Ckktynuhd encounterKevin CarnahanG Family Medicine [place]Start: 05-08-2021 End: 08-43-2665wcwowgxjatRnhla Aayush Other [facility] DNA Guide Other Start: 36-87-9011Ttaskb outpatient new 45 minutesKevin CarnahanG Family Medicine [place]Start: 04-11-2021 End: 39-53-4498wanygcaqubJyxeko Mapus Other [facility] DNA Guide Other Start: 40-17-7172Xxlmglbrm encounterTondra Mapus [facility] Coordinated Care ClinicStart: 04-03-2021 End: 13-18-2432jeympmdtzxGvsaevs Langenberg Other [email or web address] DNA Guide Other Start: 05-82-9877Dpgoqr outpatient visit 15 minutes Tray [facility] SurgeryStart: 03-27-2021(DM) DiabetesTondra Leonardous [facility] Care ClinicStart: 03-27-2021 End: 25-14-2080hbbtrrcbhbSdydbq Leonardous Other [facility] DNA Guide Other Start: 02-27-2021 End: 89-99-5354fsuymmvdpdXmlsgpf Langenberg Other [facility] DNA Guide Other Start: 17-56-2687Wxspgy outpatient visit 15 minutes Tray [facility] SurgeryStart: 05-16-2017 End: 69-32-4228RjovsxapzxIUFO MD JOHNSONFacility:UNKNOWNStart: 01-25-2017 End: 37-96-5046DzffbuccigUHTAP [facility]OSPITALFac[facility]:H1 Procedures DateProcedureProcedure DetailPerforming ClinicianStart: 26-61-4578Ltjtxeff screenMICZOIE Anderson on above:Order Comment: Specimen Type: BLOOD SPECIMEN Ordering Facility: [facility] Address: [address] [place], [place] [address]Performed By: #### [id number] #### [facility] CLIA [id number] [address] [place] [address] [place] AMERICAStart: 24-98-7344EX of lungsJennifer Cierra MENTAL HEALTH PROGRAM DIRECTOR Work Phone: Start: 43-21-3940RRDFROFJOBKJN SMEAR CYTOLOGYLinwood Irwin MD Work Phone: start: 10-09-3033Lmjnx foot complete minimum 3 views Karl Fritz DPM Work Phone: start: 82-24-2820DUZQGJKGKCN WOUND CULTURE ([facility]) Karl Fritz DPM Work Phone: start: 68-17-3839Iicgemm microbial cultureGloria Keita DO Work Phone: Start: 44-87-4805IqcoesqapecgxlhiofriemtnopJmnqvm Keita DO Work Phone: Start: 88-10-2931Xmway cultureGloria Keita DO Work Phone: Start: 88-60-4375Kxbhsitm blood count with white cell differential, automatedNataliya Jane TOP PRECIPITATOR OPERATOR HELPER Other Phone: Start: 64-75-4171Rad routine ecg w/least 12 lds w/i&r Roland Faust MD Work Phone: Start: 40-24-4262RBT of headGloria Keita DO Work Phone: Start: 19-97-8202Pteby cultureGloria Keita DO Work Phone: Start: 43-48-9814EC angiography of headGloria Keita DO Work Phone: Start: 35-81-2011QE angiography of neck vesselsGloria Keita DO Work Phone: Start: 81-63-2075QW of head without contrastGloria Keita DO Work Phone: Start: 88-71-0779Tlpia chest X-rayGloria Keita DO Work Phone: Start: 02-58-7364Bdmsqpnxsbj Panel (PCR)Sandra Debbie DO Work Phone: Start: 09-42-4808Siasltit blood count with white cell differential, automatedNataliya Jane TOP PRECIPITATOR OPERATOR HELPER Work Phone: Start: 01-95-7847Vraefmeazmdlo metabolic panelNataliya Jane TOP PRECIPITATOR OPERATOR HELPER Work Phone: Start: 95-44-1737IABLXSRVVWK SLIDE REVIEW ([facility])Nataliya Jane TOP PRECIPITATOR OPERATOR HELPER Work Phone: Start: 47-23-8683Pel routine ecg w/least 12 lds w/i&r Roland Faust MD Work Phone: Start: 84-77-6578Bkawvwq microbial cultureDO Sandra Keita Work Phone: Start: 44-04-9116Ewzsco scan of lower limb veinsDO Sandra Keita Work Phone: Start: 06-26-9106JI lumbar spine wo conDKelly Keita Work Phone: Start: 41-96-5984EV pre/post mri xrayDO Sandra Keita Work Phone: Start: 12-26-8470Ays routine ecg w/least 12 lds w/i&r Roland Faust MD Work Phone: Start: 53-83-4025DBLW PROFILE (ANCA+MPO+PR3)Oz Lillian Kincaid MD Work Phone: start: 53-18-4871ZBNL-CENTROMERE B ANTIBODIESOz Kincaid MD Work Phone: start: 78-32-2352BGRU-DSDNA(DBL)ABOz Kincaid MD Work Phone: start: 86-14-5341OPAC-RNPMark Lillian Kincaid MD Work Phone: Start: 03-85-6606Rxlxliqjfdw antibodies anaMark Lillian Kincaid MD Work Phone: start: 42-18-7919HTBAMXWWRBPVI P ANTIBODIESOz Kincaid MD Work Phone: start: 15-01-7216GULLOGY ANTIBODIESOz Kincaid MD Work Phone: start: 49-42-0805Wslohxtqqln analyte qual/semiqual multiple stepOz Kincaid MD Work Phone: Start: 74-21-5690DR-1 ANTIBODYMark Lillian Kincaid MD Work Phone: start: 49-11-2757LTINDBV AND PYRUVATEMark Lillian Kincaid MD Work Phone: start: 50-27-6370VXSACVCSPUL 70 ANTIBODIESOz Kincaid MD Work Phone: start: 10-91-5509MRAHTXZC ANTI-SSA/SSBMark Lillian Kincaid MD Work Phone: start: 57-02-8335HQL AUTOANTIBODIESOz Kincaid MD Work Phone: start: 68-57-5591Idg routine ecg w/least 12 lds w/i&r Jonas Ch MD Work Phone: Start: 28-03-0308EGC of headDO Sandra Keita Work Phone: Start: 40-18-0319Kikugzsr identified in Urine by Emile Keita Work Phone: Start: 31-27-3971Ikedb Emile Flores Keita Work Phone: Start: 68-67-4294WH of head without contrastDO Sandra Keita Work Phone: Start: 24-32-3476ECQRUUG AND PYRUVATEOz Kincaid MD Work Phone: start: 42-50-4905U-ray of lumbar spine, six views including bending viewsDO Sandra Keita Work Phone: Start: 96-48-3078Eavzatfnfmz [Units/volume] in Serum or PlasmaWilliaquiana Ch MD Work Phone: Start: 79-26-0529Goljl chest X-rayDO Sandra Keita Work Phone: Start: 01-19-8587CW of lungsDO Sandra Keita Work Phone: Start: 09-73-1684Qaxb energy X-ray absorptiometryDO Jonas Yoder Work Phone: Start: 06-37-4922Xorqjkhpd mammography of bilateral breastsDO Sandra Keita Work Phone: Start: 34-50-6256UO of lungsDO Sandra Keita Work Phone: Start: 62-01-3134Ixbuovyq tomography of abdomen and pelvis with contrastDO Tray Carrasquilloart: 41-62-1245Bdzacwogvs laparoscopyDO Tray Carrasquilloart: 96-55-7678ZV scan of gallbladderDO Tray Randle Start: 48-52-6045XW of abdomen and pelvis without contrastDO Tray [place] Start: 79-74-2594IenabwjitxyTkdtjuy McGuinn MD Work Phone: Start: 66-93-7241Gehqxtpz screenComment on above: Performed By: #### [id number] #### [place] [address] Pzkfe culture for bacteria, including anaerobic screenDO Tray NovoaARS Antigen (LFIA)DO Tray JerUrine cultureDO Trayumu [place]le Urine cultureDO Tray [place] Plan of Treatment DateCare ActivityDetailAuthorStart: 08-17-2025 End: 60-32-1046Qlhsbiu encounter popsmbpet75/21/2026 3:10 PM EDT Office Visit [place] [id number] [facility] [address] [place] [phone] Roland Faust MD [address] [facility] [address] [place] [address] [facility]: 08-10-2025 End: 07-45-1494Owdcrlx encounter elpitejwh44/14/2026 1:15 PM EDT Office Visit JUMA NUNN [address] [place] [address] Linwood Irwin MD [address] [place], [place] [phone] JUMA Chun OBGYNStart: 07-20-2025 End: 54-82-7212Guqmypb encounter usqnthhuu39/24/2026 4:00 PM EDT Office Visit JUMA Larkin [facility] [address] [place] [address] Oz Kincaid MD [address] [id number] JUMA [facility] Start: 02-10-2025 End: 71-65-1793Ybmjpup encounter geseslmco50/15/2025 1:00 PM EDT Office Visit JUMA HARDINGELVIRAN [address] [place] [address] Linwood Irwin MD [address] [place] [address] JUMA Chun OBGYNStart: 02-09-2025 End: 58-03-5653Clgodmc encounter wdqeccdxl39/14/2025 12:30 PM EDT Office Visit JUMA HARDINGELVIRAN [address] [place] [address] Linwood Irwin MD [address] [place] [address] JUMA Chun OBGYNStart: 01-19-2025 End: 81-46-7074Ffeiufc encounter procedureNOMS SWS NEUR BStart: 12-30-2024 End: 69-88-8915Ijphiyb encounter fpdjdfehx18/03/2025 1:40 PM EDT Office Visit [place] [id number] [facility] [address] [place] [address] Roland Faust MD [address] [facility] [address], [address] [place], [place] [phone] [facility] CenterStart: 60-70-4439NXVLV-19 Vaccine ( season)COVID-19 Vaccine ( season)[facility] Start: 07-40-7302Rdqzseqbg vaccinationInfluenza Vaccine (#1)[facility]Start: 12-18-2024 End: 79-90-8696Dnqnhtr encounter procedureNOMS SWS NEUR BStart: 12-11-2024 End: 92-95-8667Xldrfny encounter procedureNOMS SWS NEUR BStart: 11-30-2024 End: 37-29-9768Mlvxuwn encounter uyvjrexpw65/04/2025 1:15 PM EDT Office Visit NOMJaqueline Chun Podiat[facility] [address] [place] [address] Karl Fritz, DPM [address] [place] [address] NOMJaqueline Chun PodiatryStart: 11-23-2024 End: 56-27-9684Ccysgdz encounter procedureNOMS SWS PODIATRYComment on above: ArrivedStart: 10-62-3805Ktiakdbbvdr Wound CultureSuperficial Wound Culture [facility]art: 89-13-9883Brwkhwn stimulating hormone measurementStillwater Medical Center – StillwaterStart: 10-28-2024 End: 11-88-9589Vcolwlq encounter lyiqcuzbr45/02/2025 4:00 PM EDT Office Visit [facility] [address] [place] [address] Karl Fritz, DPM [address] [place] [address] NOMS SWS PODIATRYStart: 10-23-2024 End: 81-47-8604Fwfsqad encounter lnpnblnvy13/27/2025 12:00 PM EDT Procedure Visit [facility] NEUR B [address] [place] [address] Oz Kincaid MD [address] [place] [address] NOMS SWS NEUR BStart: 10-20-2024 End: 68-27-2062Deqoaxg encounter rwfoxgkkm16/24/2025 10:45 AM EDT Office Visit [facility] [address] [place] [address] Karl Fritz DPM [address] [place] [address] ArrivedNOMS SWS PODIATRYComment on above:ArrivedStart: 10-06-2024 End: 37-29-6265JXZ AND NERVE CONDUCTION STUDYEMG AND NERVE CONDUCTION STUDY Neurology Routine Numbness Leg pain, left Leg pain, right Bilateral leg weakness Expected: 10/06/2024 (Approximate), Expires: 10/06/2025[facility] Work Phone: comment on above:Expected: 10/06/2024 (Approximate), Expires: 10/06/2025Start: 10-06-2024 End: 99-19-6368Jdsuzfs encounter procedureNOMS [facility] NEUR BComment on above: ArrivedStart: 09-10-2024 End: 08-23-9711XvzrehcezPomerene Hospitaltart: 25-29-7050Xbwardr referralBlanchard Valley Health System Work Phone: Start: 46-15-4698Sbqrkmb referralBlanchard Valley Health System Work Phone: Start: 93-70-1393Tzdnz brachial pressure index [facility]: 60-87-1087Dexic culturePomerene Hospitaltart: 70-06-0380Bbuzrlpo identified in Urine by Culture Urine CulturePomerene Hospitaltart: 14-74-7552AmsatoymmPomerene Hospitaltart: 05-26-2024 End: 34-08-1182Bixnmrk encounter yslthojvc19/28/2025 2:40 PM EST Office Visit [address] [place] [address] Roland Faust MD [address] [facility] [address], [address] [place] [address] [facility]: 05-07-2024 End: 95-17-2565Ivlypqa encounter uekfwqvsn29/09/2025 2:15 PM EST Office Visit [facility] [address] [place] [address] Karl Fritz, DPM [address] [place] [address] NOMS SWS PODIATRYStart: 75-84-9095BjnxljiisPomerene Hospitaltart: 04-29-2024 End: 07-76-3551LkxeaMer[address] Health [address] [facility] Warren Hospitaltart: 04-29-2024 Referral to neurologistPomerene Hospitaltart: 04-29-2024 [facility]: 31-59-1500Fdgkxxfm admissionPomerene Hospitaltart: 21-68-7616PtnipbgvrPomerene Hospitaltart: 04-07-2024 End: 65-36-7975Qomppip encounter jnufaxriz98/10/2024 3:30 PM EST Office Visit [facility] [address] [place] [address] Karl Fritz, DPM [address] [place] [address] NOMS SWS PODIATRYStart: 04-07-2024 End: 36-49-9427Ndcdnxl encounter procedureNOMS SWS NEUR BComment on above: ArrivedStart: 03-27-2024 End: 52-42-9797Ledxlcv encounter zdocttzqr31/29/2024 10:10 AM EST Office Visit [address] [place] [address] Roland Faust MD [address] [facility] [address], [address] [place] [address] FirelandsStart: 03-24-2024 End: 93-04-1201Tlcpjtd encounter dkatapcem92/26/2024 1:30 PM EST Office Visit [facility] [address] [place] [address] Karl Fritz, DPM [address] [place] [address] NOMS SWS PODIATRYStart: 03-10-2024 End: 79-79-3837Ehcmxbz encounter pawsynksh85/12/2024 1:30 PM EST Office Visit [facility] [address] [place] [address] Karl Fritz, DPM [address] [place] [address] NOMS SWS PODIATRYStart: 02-25-2024 End: 05-05-0835Dyqjfli encounter procedureNOMS SWS NEUR BComment on above: ArrivedStart: 02-10-2024 End: 57-67-7635Hjdjosl encounter procedureNOMS SWS PODIATRYComment on above: ArrivedStart: 01-28-2024 End: 71-00-8655Hhfyldq encounter twsdopxvn15/01/2024 1:30 PM EDT Office Visit [facility] NE[facility] B [address] [place] [phone] Oz Kincaid MD [address] [facility] [address] [phone] NOMS SWS NEUR BStart: 01-27-2024 End: 16-38-7285Kzgzwss encounter procedureNOMS SWS PODIATRYComment on above: ArrivedStart: 01-21-2024 End: 40-76-8952Lepvjga encounter jpmorebri25/24/2024 11:00 AM EDT Office Visit [facility] [address] [place] [address] Karl Fritz DPM [address] [place] [address] ArrivedNOMS [facility] PODIATRYComment on above:ArrivedStart: 29-60-3330Lzyipgoghij Wound CultureSuperficial Wound CulturePomerene Hospitaltart: 01-07-2024 End: 92-29-6339ZEMUNPIPBQC WOUND CULTURE ([facility])SUPERFICIAL WOUND CULTURE ([facility]) Microbiology Routine Ulcer of right foot, limited to breakdown of skin (CMS/HCC) Cellulitis of right foot Expected: 01/07/2024 (Approximate), Expires: 01/06/2025[facility] Work Phone: comment on above:Expected: 01/07/2024 (Approximate), Expires: 01/06/2025Start: 01-07-2024 End: 99-68-8768Rvdufgy encounter makkvwvwt31/10/2024 1:15 PM EDT Office Visit [facility] NE[facility] B [address] [place] [phone] Oz Kincaid MD [address] [facility] [address] [address] NOMS SWS NEUR BStart: 01-07-2024 End: 64-00-2732Vanckhe encounter dsrdlhxye61/10/2024 9:45 AM EDT Office Visit [facility] [address] [place] [address] Karl Fritz DPM [address] [place] [address] ArrivedNOMS [facility] PODIATRYComment on above:ArrivedStart: 29-89-8777Joaohk scan of lower limb veinsUS venous duplex [facility]: 01-36-1204PU Lower extremity vein - bilateral [facility]: 90-71-2060DXDYR-19 Vaccine ( season)COVID-19 Vaccine ( season)[facility] Start: 82-81-1411Aqgcmuoct vaccinationThe MetroHealth SystemStart: 39-90-1778Nwizj zinc measurementPomerene Hospitaltart: 12-02-2023 End: 74-92-4648AjxnstcslPomerene Hospitaltart: 70-71-0404Fynpiero to Scl-70 measurementPomerene Hospitaltart: 00-27-1977IEF antibody measurementPomerene Hospitaltart: 86-50-6210GglfsavrvPomerene Hospitaltart: 11-13-2023 End: 00-02-9742Xlsndcuki aminotransferase [Enzymatic activity/volume] in Serum or Plasma by With P-5'-PAspartate Aminotransferase Lab Routine High risk medication use Expected: 11/13/2023 (Approximate),Expires: 11/12/2024[facility] Service Area Work Phone: Comment on above:Expected: 11/13/2023 (Approximate), Expires: 11/12/2024Start: 11-13-2023 End: 10-56-7680Shhlw metabolic 2000 panel - Serum or PlasmaBasic Metabolic Panel Lab Routine High risk medication use Expected: 11/13/2023 (Approximate), Expir es: 11/12/2024[facility] Work Phone: Comment on above:Expected: 11/13/2023 (Approximate), Expires: 11/12/2024Start: 11-13-2023 End: 02-05-3426Yacnyivc Pulmonary Function Test (Spirometry/DLCO/Lung Volumes) Complete Pulmonary Function Test (Spirometry/DLCO/Lung Volumes) PFT Routine Typical atrial flutter (Multi) Expected: 11/13/2023 (Approximate), Expires: 11/12/2024[facility] Work Phone: Comment on above:Expected: 11/13/2023 (Approximate), Expires: 11/12/2024Start: 11-13-2023 End: 85-03-3522Pnmagmo encounter klcpkerzw51/17/2024 2:00 PM EDT Office Visit [facility] [address] [facility] [address] [place] [address] Jonas Ch MD [address] [facility] [address] [place] [address] [facility]: 11-13-2023 End: 38-24-5722Pkbswaxrroi [Units/volume] in Serum or PlasmaThyroid Stimulating Hormone Lab Routine High risk medication use Expected: 11/13/2023 (Approximate), Expires: 11/12/2024[facility] Work Phone: Comment on above:Expected: 11/13/2023 (Approximate), Expires: 11/12/2024Start: 11-13-2023 End: 25-51-3449YO Chest 2 ViewsXR chest 2 views Imaging Routine Typical atrial flutter (Multi) Expected: 11/13/2023 (Approximate),Expires: 11/12/2024[facility] Work Phone: Comment on above:Expected: 11/13/2023 (Approximate), Expires: 11/12/2024Start: 78-96-1218MtobvezafWooster Community Hospital CenterStart: 48-09-8392MftfpdaajWooster Community Hospital CenterStart: 19-67-2955Qgssyasa identified in Urine by CulturePomerene Hospitaltart: [id number] to neurologistWooster Community Hospital CenterStart: 72-34-1037Hqhhetru admission [facility] CenterStart: 67-68-6864Bwapkbnr therapy procedure [facility] Hospitaltart: [id number] to occupational therapistWooster Community Hospital CenterStart: 76-34-3089SwrxklarcWooster Community Hospital CenterStart: 44-48-3657ZvpitwffuWooster Community Hospital CenterStart: 10-50-0912VvetpdyqrWooster Community Hospital CenterStart: 86-57-2141Iujwt zinc measurementPomerene Hospitaltart: 07-77-6169JcyvyemriPomerene Hospitaltart: 10-28-2023 End: 01-21-8000Ckrdipcgferzs ExternalCardioversion External Cardiac Services Routine Typical atrial flutter (Multi) Expected: 10/28/2023(Approximate), Expires: 10/06/2025[facility] Service Area Work Phone: Comment on above:Expected: 10/28/2023 (Approximate), Expires: 10/06/2025Start: 87-38-9116RqlkdlmhyPomerene Hospitaltart: 21-59-1685Pxyqrpgy to cardiologistPomerene Hospitaltart: 62-27-4461Aedahufs admissionPomerene Hospitaltart: 12-28-2022 COVID-19 Vaccine ( season)COVID-19 Vaccine () [facility]: 74-34-0327Eoqsqfmqv for osteoporosisBone Density ScanClermont County Hospital: 39-81-9565Npawmuxr tomography of abdomen and pelvis with contrastCT abdomen pelvis w [facility]: 12-17-2021 End: 53-90-0759Iizojcllj department patient visitDeparted EmergencyWooster Community Hospital Ctr-Emergency RoomStart: 56-49-1019WycowfoppWooster Community Hospital Ctr Work Phone: Start: 33-84-8181Zsnmoqgj to urologistWooster Community Hospital Ctr Work Phone: Start: 21-34-1767Nimarlcj to general surgeonWooster Community Hospital Ctr Work Phone: Start: 31-73-1638Zrgefzmh admissionSalem City Hospital Work Phone: Start: 07-30-1734Dpdykhetq for malignant neoplasm of breastMammogramClermont County Hospital: 51-90-5552KLI High Risk: (Elderly (60+) or Population) (1 - Risk 60-74 years 1-dose series)RSV High Risk: (Elderly (60+) or Population) (1 - Risk 60-74 years 1-dose series)[facility]: 05-62-7411BGU patients and/or patients aged 60+ years (1 - 1-dose 60+ series)RSV patients and/or patients aged 60+ years (1 - 1-dose 60+ series)[facility]: 06-93-8979Cryemd Vaccines (1 of 2)Zoster Vaccines (1 of 2) [facility]: 38-02-4000JWuD/Tdap/Td Vaccines (1 - Tdap)DTaP/Tdap/Td Vaccines (1 - Tdap)[facility]: 05-69-4433Rnbwnzntm for malignant neoplasm of cervixUnChillicothe VA Medical Center: 59-47-7723Gygxaxjrwbhv vaccinationPneumococcal Vaccine (1 of 2 - PCV)[facility]: 53-36-9354Ahmtk screening for proteinDiabetes: Urine Protein ScreeningClermont County Hospital: 91-57-0598Qwkqmobch C screeningHepatitis C ScreeningUnChillicothe VA Medical Center: 31-68-0563Phusvnln foot examinationDiabetes: Foot ExamUnChillicothe VA Medical Center: 04-97-2999Hfkwvdlf screeningDiabetes: Retinopathy ScreeningUnChillicothe VA Medical Center: 83-34-1389Qhesojkjnmhk Vaccine: 65+ Years (1 of 2 - PCV)Pneumococcal Vaccine: 65+ Years (1 of 2 - PCV) [facility]: 05-85-9147KVI Vaccines (1 of 1 - Standard series)MMR Vaccines (1 of 1 - Standard series)[facility]: 81-81-9530Rzwqhu wellness visitUnKettering Health [facility] Start: 89-11-3335Hllffxovaa A1c measurementDiabetes: Hemoglobin Y3AOlnouxvvptChillicothe VA Medical Center: 92-28-8284Lpdpz panelLipid PanelUnChillicothe VA Medical Center: 07-30-1958Medicare Annual Wellness VisitMedicare Annual Wellness Visit (AWV)[facility]: 1955 Screening for malignant neoplasm of colonUnnorth central [facility]ist [facility] ClevelandStart: 12-68-8416Dctnefjyc for osteoporosisBone Density ScanClermont County Hospital: 11-94-2690Ipwyyjs stimulating hormone measurementTSUniversity Hospitals [facility]: 11-84-9547Ltimp screening for protein Diabetes: Urine Protein ScreeningThe [facility] System24 hour urine measurementPremier Health Upper Valley Medical CenterAlbumin [Mass/volume] in Serum or PlasmaPremier Health Upper Valley Medical CenterAlbumin/Globulin ratioPremier Health Upper Valley Medical CenterAldolase measurementPremier Health [facility] Valley Medical CenterAngiotensin converting enzyme [Enzymatic activity/volume] in Serum or PlasmaPremier Health Upper Valley Medical CenterAntibody measurementPrem[facility] Health [facility] Center Arsenic measurementPremier Health Upper Valley Medical CenterBacteria identified in Unspecified specimen by Aerobe culturePremier Health Upper Valley Medical CenterBacteria identified in Unspecified specimen by Aerobe culturePremier Health Upper Valley Medical CenterBorrelia burgdorferi Ab [Interpretation] in SerumPremier Health Upper Valley Medical CenterBorrelia burgdorferi IgG Ab [Presence] in Serum or Plasma by ImmunoassayPremier Health Upper Valley Medical CenterBorrelia burgdorferi IgG+IgM Ab [Presence] in Serum by ImmunoassayPremier Health Upper Valley Medical CenterBorrelia burgdorferi IgM Ab [Presence] in Serum or Plasma by ImmunoassayPremier Health Upper Valley Medical CenterCentromere protein B Ab [Units/volume] in SerumPremier Health Upper Valley Medical CenterCeruloplasmin [Mass/volume] in Serum or PlasmaPremier Health Upper Valley Medical CenterCeruloplasmin [Mass/volume] in Serum or [place] [facility] HospitalComplement C3 [Mass/volume] in Serum or [place] [facility] HospitalComplement C4 [Mass/volume] in Serum or [place] [facility] HospitalComprehensive metabolic 1999 panel - Serum or Plasma [facility] CenterComprehensive metabolic 1999 panel - Serum or [place] [facility] HospitalComprehensive metabolic 1999 panel - Serum or [place] [facility] HospitalCopper [facility] VA Medical CenterCryoglobulin [Presence] in SerumPremier Health Upper Valley Medical CenterCT Unspecified body [facility] HospitalDBT Breast - bilateral screeningBilateral screening mammogram with tomosynthesis Imaging Routine Encounter for gynecological examination Breast cancer screening by mammogram Ordered: 02/02/2025NOCitizens Memorial HealthcareComment on above:Ordered: 02/02/2025DXA Skeletal system.axial Views for bone densityPremier Health Upper Valley Medical CenterElectrophoresis: aaveq-9-ogscxrvgYomsqyfquPremier Health Upper Valley Medical Center Electrophoresis: nggry-3-fgmqpjdyCotyhqtoqPremier Health [facility] Electrophoresis: beta-globulinPremier Health Upper Valley Medical CenterElectrophoresis: gamma globulinPremier Health Upper Valley Medical CenterFLOWCYTOMETRY NEOGENOMIC FLOWCYTOMETRY NEOGENOMIC Lab Routine 06/26/2024 10:44 AM [facility] [employer] Work Phone: Globulin [Mass/volume] in SerumPremier Health Upper Valley Medical CenterGlucose measurement estimated from glycated hemoglobinPremier Health Upper Valley Medical CenterHevalley plaza doctors hospital A virus antibody, IgM typeSouthview Medical Center B core antibody measurement, IgM [facility] B virus surface Ag [Presence] in Serum or Plasma by ImmunoassayPremier Health Upper Valley Medical CenterHevalley plaza doctors hospital C virus IgG Ab [Presence] in Serum or Plasma by ImmunoassayPremier Health Upper Valley Medical CenterHevalley plaza doctors hospital C virus RNA [log units/volume] (viral load) in Serum or Plasma by TEJINDER with probe detectionPremier Health Upper Valley Medical CenterHevalley plaza doctors hospital C virus RNA [Units/volume] (viral load) in Serum or Plasma by TEJINDER with probe detectionPremier Health Upper Valley Medical CenterHistone IgG Ab [Units/volume] in Serum by ImmunoassayPremier Health Upper Valley Medical CenterHIV 1+2 Ab+HIV1 p24 Ag [Presence] in Serum or Plasma by ImmunoassayPremier Health Upper Valley Medical CenterHomocysteine [Moles/volume] in Serum or PlasmaPremier Health Upper Valley Medical CenterHomogenous nuclear Ab pattern [Titer] in SerumPremier Health Upper Valley Medical CenterHomogenous nuclear Ab pattern [Titer] in SerumPremier Health Upper Valley Medical CenterIgA [Mass/volume] in Serum or Plasma [facility] CenterIgG [Mass/volume] in Serum or PlasmaPremier Health Upper Valley Medical CenterIgM [Mass/volume] in Serum or PlasmaPremier Health Upper Valley Medical CenterIGP, APT HPV,RFX 16/18,45IGP, APT HPV,RFX 16/18,45 Lab Routine Encounter for gynecological examination without abnormal finding Encounter for screening for cervical cancer Ordered: 02/02/2025[facility] [employer] Work Phone: comment on above:Ordered: 02/02/2025IGP, APT HPV,RFX 16/18,45IGP, APT HPV,RFX 16/18,45 Lab Routine Vaginal lesion Encounter for gynecological examination without abnormal finding Encounter for screening for cervical cancer Ordered: 02/02/2025[facility] CenterComment on above:Ordered: 02/02/2025Immunofixation for UrinePremier Health Upper Valley Medical CenterJo-1 extractable nuclear Ab [Units/volume] in SerumPremier Health Upper Valley Medical Center Lead [Presence] in BloodPremier Health Upper Valley Medical CenterLutropin [Units/volume] in Serum or PlasmaPremier Health Upper Valley Medical CenterMeasurement of monoclonal protein concentrationPremier Health Upper Valley Medical CenterMercury [Mass/volume] in BloodPremier Health Upper Valley Medical CenterMethylmalonate [Moles/volume] in Serum or PlasmaPremier Health Upper Valley Medical CenterMG Breast - bilateral ScreeningPremier Health Upper Valley Medical CenterMG Breast - bilateral ScreeningPremier Health Upper Valley Medical CenterMitochondria M2 IgG Ab [Units/volume] in SerumPremier Health Upper Valley Medical CenterMR Cervical spine WO contrastPremier Health Upper Valley Medical CenterMR Thoracic spinePremier Health Upper Valley Medical CenterMyeloperoxidase Ab [Units/volume] in Serum by ImmunoassayPremier Health Upper Valley Medical CenterNeutrophil cytoplasmic Ab.classic [Titer] in Serum by ImmunofluorescencePremier Health Upper Valley Medical CenterNuclear Ab [Titer] in SerumPremier Health Upper Valley Medical CenterNuclear Ab [Titer] in SerumPremier Health Upper Valley Medical CenterP-ANCA measurementPremier Health Upper Valley Medical CenterPathology ReportPathology Report Pathology and Cytology Routine Vaginal lesion Ordered: 02/02/2025[facility] CenterComment on above: Ordered: 02/02/2025Patient EducationWooster Community Hospital Ctr Work Phone: Patient referralWooster Community Hospital Ctr Work Phone: Porphobilinogen [Mass/volume] in UrinePremier Health Upper Valley Medical CenterProtein [Mass/volume] in Serum or PlasmaPremier Health Upper Valley Medical CenterProtein [Mass/volume] in UrinePremier Health Upper Valley Medical CenterProteinase 3 Ab [Units/volume] in Serum by ImmunoassayPremier Health Upper Valley Medical CenterPyridoxine [Mass/volume] in Serum or PlasmaPremier Health Upper Valley Medical CenterReagin Ab [Presence] in Serum by RPAdena Regional Medical CenterRheumatoid factor [Units/volume] in Serum or PlasmaPremier Health Upper Valley Medical CenterRibosomal P Ab [Units/volume] in [facility] Centererum immunofixationPomerene Hospitaljogrens syndrome-A extractable nuclear Ab [Units/volume] in [facility] Sjogrens syndrome-B extractable nuclear Ab [Units/volume] in SerumPomerene Hospitalmith extractable nuclear Ab [Units/volume] in Serum Pomerene HospitalUPERFICIAL WOUND CULTURE ([facility] Work Phone: comment on above:Ordered: 11/16/2024Thallium [Mass/volume] in Serum or PlasmaPremier Health Upper Valley Medical CenterWest Nile virus IgG Ab [Presence] in Serum by ImmunoassayPremier Health Upper Valley Medical CenterWest Nile virus IgM Ab [Presence] in Serum by ImmunoassayAgnesian HealthCare Immunizations Immunization DateImmunizationNotesCare ErttujsjWsstdual38-27-7982isfmydb, mumps and rubella virus vaccineGlSt. Francis Hospital Other [facility] CenterNEGATED: Highlighted row has not occurred!62-35-9514Nbd Shot - Documentation Purposes OnlyGlsenait Keita Other [employer] Other NEGATED: Highlighted row has not occurred!04-16-2022 influenza, seasonal, injectablePatient ObjectionGlsenait Keita Other [facility] Payers DatePayer CategoryPayerPolicy [id number] [id number] Eligibility Medicare/Medicaid [id number] Health InsuranceUNALLINA [facility]ALTH [facility] D[facility] COMPLETE [facility] DUAL COMPLETE [id number] 2023-Present [address] [address] [place] [address] [id number] [id number] 2..840.3.364997.773019 2023Medicare1.2.840.008070.1.13.693.2.7.3.314446.315 2023Medicare (Managed Care)[employer] MEDICARE Member Subscriber Plan / Payer (Effective 2022-Present) Name: Taye Gay Relation to Subscriber: Self Name: Taye Gay Subscriber ID: [id number] Payer ID: [id number] (NAIC) Group ID: Not on file Type: Not on file Address: [address] [place] [id number] 80-78-5315Nofsfrk Health [id number] 2022Medicaid1.2.840.858089.1.1[id number] Cross Blue [id number] 2..840.1.85826[id number] [id number] [id number] 2..840.1.396962.3.57[id number] 2.16840.1.763241.3.57[id number] 2.16840.1.695905.3.57[id number] 2.16840.1.374475.3.57[id number] 2.16840.1.724123.3.57[id number] 2.0.1.148260.3.57[id number] 2.0.1.991366.3.57[id number] 2.0.1.611945.3.57[id number] 2.0.1.764355.3.57[id number] 2..1.647446.3.57[id number] 2.0.1.931515.3.57[id number] 2.0.1.443988.3.57[id number] 2.0.1.445451.3.57[id number] 2.840.1.667996.3.57[id number] 2.840.1.556808.3.57[id number] 2.16.840.1.833128.3.57[id number] 2.0.1.037274.3.57[id number] 2.0.1.229012.3.57[id number] 2..1.274914.3.57[id number] 2..1.945404.3.57[id number] 2..1.368862.3.57[id number] 2..1.603071.3.57[id number] 2..1.508736.3.57[id number] 2..1.328[id number] 2..1.749718.19Unknown [id number] 2.0.1.0[id number] 2.0.1.4[id number] 2.0.1.587577.3.579.2.531 [id number] 2.840.1.3[id number] 2.840.1.5[id number] 2.840.1.857417.3.579.2.531 [id number] 2.16.840.1.1[id number] 2.16.840.1.8[id number] 2.16.840.1.162886.3.579.2.531 [id number] 2.16.840.1.5[id number] 2.16.840.1.8[id number] 2.16.840.1.336377.3.579.2.531 Social History DateTypeDetailFacilityUnknown if ever smokedQuail DNA Guide Other Start: 10-07-2023 End: 20-10-9671Xqd Assigned At [facility] DNA Guide Other Start: 12-17-2021 End: 82-87-7429Vmrrfbo smoking status NHISSmoker (finding)[facility]: 64-51-7989Dvo [facility] [place] [facility] 04-29-1973 End: 15-67-5897Krfaezg smoking status NHISSmokes tobacco dailyUnKettering Health Washington TownshipStart: 42-78-4125Jvtzumy of tobacco useCigarette Smoker [facility] Work Phone: Start: 09-58-7103Wxzpmhs use and exposureSmokeless tobacco non-userUnKettering Health Washington Township Work Phone: Start: 10-07-2023 End: 38-69-3611Hvxlyrrls beverage intakeLifetime non-drinker (finding)[facility] Work Phone: Start: 10-07-2023 End: 45-81-5966Ifjqmlj of Social functionUnKettering Health Washington Township Work Phone: Start: 62-13-1921Txg assigned at birthNot on file [facility] Work Phone: Start: 09-27-2023 End: 55-80-9838Rfgjvnhk to SARS-CoV-2 (event)Not sureThe MetroHealth SystemStart: 01-29-2023 End: 66-43-6616Onoafnx use and exposureUser of smokeless tobaccoNOMS Healthcare Start: 84-02-9723Dhpvofp CommentSmokes 11-20 cigs per dayNOMS HealthcareStart: 60-86-2770Duycfqh Commentcaffeine intake: occasionalNOMS HealthcareStart: 04-29-2024 End: 32-55-9837HbrIkdzyy (finding)[facility]: 07-11-2022 End: 37-48-8598DzlZxsvwvPwxaotqzdeKettering Health [facility] Memorial Medical Equipment Procedure CodeEquipment CodeEquipment Original TextEquipment IdentifierDates Start: 39-43-5569Shb Needle, Diabetic (Novofine 32) 32 gauge x 1/4 needleStart: 37-67-3765Jci Needle, Diabetic (Novofine 32) 32 gauge x 1/4 needleStart: 98-22-1222Rdq Needle, Diabetic (Novofine 32) 32 gauge x 1/4 needleStart: 73-41-1222Zay Needle, Diabetic (Novofine 32) 32 gauge x 1/4 needleStart: 14-73-1926Gap Needle, Diabetic (Novofine 32) 32 gauge x 1/4 needleStart: 60-91-9367Chz Needle, Diabetic (Novofine 32) 32 gauge x 1/4 needleStart: 54-68-0847Xyd Needle, Diabetic (Novofine 32) 32 gauge x 1/4 needleStart: 25-26-7046Vlq Needle, Diabetic (Novofine 32) 32 gauge x 1/4 needleStart: 29-83-4646Fej Needle, Diabetic (Novofine 32) 32 gauge x 1/4 needleStart: 53-44-5900Czv Needle, Diabetic (Novofine 32) 32 gauge x 1/4 needleStart: 28-73-2896Kyl Needle, Diabetic (Novofine 32) 32 gauge x 1/ needleStart: 08-20-2024 Goals DatePatient GoalDesired Activity/State Functional Status GuxsAmokqkudsxInqndgQlydskub29-04-4152Lyofdznako statusPatient at [facility] Work Phone: 1(990) 275-305907-432802-12-1518Duglwoggvv statusPatient at [facility] Work Phone: [phone]llnwfsa statusPatient at [facility] Work Phone: [phone]Mnwchardul statusPatient at [facility] Work Phone: Mental Status JidnUlqnozxixgYsucyvNqusajrb10-08-7096Whjfwaovz functionCognitive Status [facility] Work Phone: 1([phone] 427-686207-492021-41-1298Xgfqrlzfw functionCognitive Status Patient at [facility] Work Phone: [phone]Geuwukzmm functionCognitive Status [facility] at [facility] Work Phone: [phone]ldfohm functionCognitive Status [facility] at [facility] Work Phone: Clinical Notes 02-27-2021 to 02-09-2025 Note Date & ZawmIxskHbhauonf46-88-6562 History of Present illness Narrative* Linwood Irwin [...] NEGATIVE FOR FUNGAL ORGANISMS, ATYPIA, AND MALIGNANCY. [facility] 02/04/2025 0846 Local History of Present Illness Taye presents for follow-up of skin lesions that have been previously biopsied The patient had multiple lesions including a small spot that has resolved with bx, The patient has a follow-up appointment scheduled for the with Dr Best Acid Strength Inspector oncology to assess ongoing treatment needs. [...] Gluc Sensor (FreeStyle Brent 14 Day Sensor) [facility], apply 1 SENSOR as directed every14 days [...] Disp: 60 tablet, Rfl: 5 Droplet Pen [place] 32G X 4 MM [facility], use 1 PEN NEEDLE to inject MEDICATION [...] PARTIAL HYSTERECTOMY CT VULVECTOMY SIMPLE PARTIAL 12/[address] [facility] [address] Joaquin [...] 11-20 cigs per day documented in this encounterCameron Regional Medical CenterOkkpunkicv88-02-9612 History of Present illness Narrative* Linwood Irwin [...] previously underwent surgery for pre-cancerous conditions in [facility], including a vulvectomy The patient has not [...] Gluc Sensor (FreeStyle Brent 14 Day Sensor) [facility], apply 1 SENSOR as directed every14 days [...] Disp: 60 tablet, Rfl: 5 Droplet Pen [place] 32G X 4 MM [facility], use 1 PEN NEEDLE to inject MEDICATION [...] including a bone rect elisabeth performed in [place]. The lesions are described as looking like [...] ordered and scheduled Referral to Dr Cordoba Acid Strength Inspector Oncology for recurrent lesion Assessment & Plan documented in this [facility]10-07-2025 Radiology Diagnostic study [facility] [place] [address] [place] [address] CT Scan Report Signed Patient: Taye Gay MR#: [id number] : 1955 Acct:[id number] Age/Sex: 69 / F ADM Date: 5 Loc: CT Room: Type: [facility] Attending Dr: CHERYL Palacios APRN Copies to: [...] Jr., D.OKenisha 02/02/2025 12:36 PM Dictation Location: [place] [address] Transcribed By: [facility] 02/02/25 1236 Dictated By: Edgar Segovia Jr, DO 02/02/25 1232 Signed By: 02/02/25 1236 [facility]09-23-2025 History of Present illness Narrative [...] -> medical office). Imaging MR L-s [facility] - HNP T12-L1 mild ... errol L5-S1 modB . . . . ([facility]) - HNP T12-L1 mild ... canal sten L2-3 mod ... errol sten L2-3 modB L4-5-S1 modB US LE (12/2016, [facility]) - atherosclerosis, nl PVR. Testing [facility] (11/2024) - acute L L5-S1 + PN sev . . . . (11/2023) - acute L S1 (nEMG) + PN pattern signif worse . . . . (03/2017, [facility]) - PN pattern Labs - W05=067/15/116/>22.3, was 359/16.7H/328/>22.3 ... A1c=8.4, was 10.4(!) ,,, [...] - [facility] speech, [...] to metal . . . . 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 APB 4R 4+L Sens - [...] Gluc Sensor (FreeStyle Brent 14 Day Sensor) [facility] tabs QAM 60 tablet 5 Droplet Pen [place] 32G X 4 MM [facility] [...] ? [address] ? [place], [place] [address] ? ? fax Neurology ? Clinical Neurophysiology ? Epilepsy ? Sleep Disorders ? Clinical Informatics documented in this encounterCameron Regional Medical CenterObiitcmhbj60-99-9308 History of Present illness Narrative* Roland Faust [...] exam, discussion and plan. documented in this encounterThe [facility]Health System Work Phone: 1(601) 872-860509-03-2025 Instructions* Patient Instructions* Edilma Menezes LPN - [...] through Care Everywhere. * Heart Healthy Diet (Bulgarian) * Quitting smoking (Bulgarian) documented in this encounterThe MetroHealth System Work Phone: 1(168) 353-838808-22-2025 History of Present illness Narrative* Oz Kincaid MD - 12/18/2024 1:15 PM EDT [facility] Patient: Taye Gay [address], [address] , Sex: 1955, Female [place], [place] [address] Height: 168 cm Ref Phys: Debbie Kincaid [...] Doub=doublet; Fasc=fasciculation; FFE=full for effort; Fib=fibrillation; Myokym=myokymia; [place]=myotonic potential; N,0=normal; NR=no response; Polyph=polyphasia; Pos=positive [sharp] wave; RFU=rapidly firing units; Serr =serrated potential (2<phases<5); W&W=waxing and waning pattern INTERPRETATION: This study reveals [facility] evidence of a chronic, neuropathic, axonal, sensory > motor process affecting all lower extremity nerves tested. Needle examination demonstrates a qiryqf-pr-qotpbbck gradient that is most suggestive of peripheral [...] of any radiculopathy. Oz Kincaid M.D. Diplomate, [place] [employer] of Psychiatry and Neurology (neurology, epilepsy, sleep medicine) Diplomate, [place] Board of Clinical Neurophysiology Diplomate, [place] Board of Preventive Medicine (clinical informatics) . documented in this [facility]08-19-2025 Evaluation note* Diagnosis Onset Date Resolution Status [...] 2024 1:23pmVitamin B 12 deficiencyacuteSeptember 2024 1:23pm [facility] Work Phone: 1(452) 801-853508-19-2025 Evaluation note* Diagnosis Onset Date Resolution Status [...] 2:19pmDepressionacuteSeptember 2024 2:19pm Lesion of spleenacuteSept2024 2:19pm [facility] Work Phone: 1(231) 318-746008-15-2025 History of Present illness Narrative* Oz Kincaid MD - 12/11/2024 1:15 PM EDT [facility] [facility] Patient: Taye Gay [address], [address] , Sex: 1955, Female [place], [place] [address] Height: 168 cm Ref Phys: Debbie Kincaid [...] Doub=doublet; Fasc=fasciculation; FFE=full for effort; Fib=fibrillation; Myokym=myokymia; [place]=myotonic potential; N,0=normal; NR=no response; Polyph=polyphasia; Pos=positive [sharp] [...] -- 36 40 Oz Kincaid M.D. Diplomate, [place] [employer] of Psychiatry and Neurology (neurology, epilepsy, sleep medicine) Diplomate, [place] Board of Clinical Neurophysiology Diplomate, [place] Board of Preventive Medicine (clinical informatics) . documented in this encounterCameron Regional Medical CenterJaeoeusmqb08-03-7230 History of Present illness Narrative* Karl Fritz, [...] if she does decline. documented in this [facility]07-21-2025 History of Present illness Narrative* Karl Fritz [...] to their surgery date. documented in this encounterCameron Regional Medical [id number] Telephone encounter Note* Telephone Encounter - Cali Duque - 10/21/2024 2:44 PM EDT Patient canceled 10/23/24 EMG on 10/20/24 due to an appointment conflict. [facility] [id number] Miscellaneous Notes* Telephone Encounter - Cali Duque - 10/21/2024 2:44 PM EDT Patient canceled 10/23/24 EMG on 10/20/24 due to an appointment conflict. documented in this encounterCameron Regional Medical CenterPwdfgjafpt09-55-6753 History of Present illness Narrative* Karl Fritz [...] with ulceration and/or pain. documented in this [facility]06-11-2025 Telephone encounter Note* Telephone Encounter - Cali Laneshreyas - 10/07/2024 3:49 PM EDT Received call from [facility] with [facility] they are happy to take her as a client. [facility] [id number] Miscellaneous Notes* Telephone Encounter - Cali Laneshreyas - 10/07/2024 3:49 PM EDT Received call from [place] with [facility] they are happy to take her as a client. 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 History of Present Illness, Associated [...] restlessness; gait ataxia. Imaging MR Yao-s ([facility]) - HNP T12-L1 mild ... canal sten L2-3 mod ... errol sten L2-3 modB L4-5-S1 modB US LE (12/2016, [facility]) - atherosclerosis, nl PVR. Testing [facility] (11/2023) - acute L S1 (nEMG) + PN pattern signif worse . . . . (03/2017, [facility]) - PN pattern Labs - R36=552/15/116/>22.3, was 359/16.7H/328/>22.3 ... A1c=8.4, was 10.4(!) ,,, [...] - [facility] & [facility]urred speech, [...] brain (03/2024) - never done during adm [facility] due to metal . . . . ([facility]) - atrophy age-appropriate & ^T2/FLAIR CTA head (03/2024, [facility]) - no stenoses CTA neck(03/2024[facility]) - < 20% B Testing (q.v.) [...] ___, unchanged: ___, orig: ___ Motor - Service Bar Cashier 4-R 4L ... APB 4B ... LEs - 4+ throughout (worse), somewhat antalgic, unchanged: ___, orig: Service Bar Cashier 4B ... APB 4R 4+L Sens - [...] Take with meals. Continuous Blood Gluc Sensor (Packet[employer]Style [place] 14 Day Sensor) [facility] [...] tabs QAM 60 tablet 5 Droplet Pen [place] 32G X 4 MM [facility] [...] Oz Kincaid M.D. [facility] ? [address] ? [place], [place] [address] ? ? fax Neurology ? Clinical Neurophysiology ? Epilepsy ? Sleep Disorders ? Clinical Informatics documented in this [facility]06-05-2025 Evaluation note* Diagnosis Onset Date Resolution Status Admit Date Atrial fibrillation acuteJune 2024 2:34pmCardiomyopathyacuteJune 2024 2:34pmCongestive heart failureacuteJune 2024 2:34pmDaytime sleepinessacuteJune 2024 2:34pmHypertensionacuteJune 2024 2:34pmHypothyroidacuteJune 2024 2:34pmIntolerance to BiPAP/CPAPacuteJune 2024 2:34pmMajor depression, chronicacuteJune 2024 2:34pmOSA (obstructive sleep apnea)acuteJune 2024 2:34pmSecondary polycythemiaacuteJune 2024 2:34pmAllergy to honey bee venomacuteAugust 2024 1:46pmDepressionacuteAugust 2024 1:46pm [facility] Work Phone: 1(661) 368-742006-05-2025 Evaluation note* Diagnosis Onset Date Resolution Status [...] 2024 1:46pm Wound of footacuteAugust 2024 1:46pm [facility] Work Phone: 1(260) 389-802405-15-2025 [place] [address] EGD Procedure Note Signed Patient: Taye Gay MR#: [id number] : 1955 Acct:[id number] Age/Sex: 68 / F Adm Date: 5 Loc: Room: Type: [facility] Attending Dr: Manjit Gleason MD Copies [...] 1241 Signed By: 09/10/24 1245 [facility]05-15-2025 [place] [address] Gastroenterology H&P Signed Patient: Taye Gay MR#: [id number] : 1955 Acct:[id number] Age/Sex: 68 / F Adm Date: 5 Loc: Room: Type: [facility] Attending Dr: Manjit Gleason MD Copies [...] 1233 Signed By: 09/10/24 1241 [facility]04-29-2025 Chief complaint+Reason for visit Narrative* [...] Secondary polycythemia October 01, 2024 2: 34pm [facility] Work Phone: 1(314) 653-456204-24-2025 Evaluation note* Diagnosis Onset Date Resolution Status [...] apnea)acuteJun2024 2:34pmSecondary polycythemiaacute October 01, 2024 2:34pm [facility] Work Phone: 1(750) 962-116803-26-2025 Evaluation note* Diagnosis Onset Date Resolution Status Admit Date Cigarette nicotine dependence acuteMarch 2024 10:54amCurrent every day smokeracuteMarch 2024 10:54amPAD (peripheral artery disease)acuteMarch 2024 10:54amBMI 32.0-32.9,adultacuteApril 2024 9:57amChronic kidney disease (CKD) stage G2/A2, mildly decreased glomerular filtracuteApril 2024 9:57amDietary counseling and surveillanceacuteApril 2024 9:57amHyperlipidemiaacuteApril 2024 9:57amHypertensionacuteApril 2024 9:57amPeripheral neuropathy acuteApril 2024 9:57amType 2 diabetes mellitusacuteApril 2024 9:57am Vitamin B 12 deficiencyacuteApril 2024 9:57am [facility] Work Phone: 1(400) 333-106003-26-2025 Evaluation note* Diagnosis Onset Date Resolution Status [...] artery disease)acuteApril 2024 1:31pmPeripheral neuropathyacuteApril 2024 1:31pm [facility] Work Phone: 1(167) 576-646703-26-2025 Evaluation note* Diagnosis Onset Date Resolution Status [...] 2024 1:31pmLumbar spondylosisacute September 07, 2024 11:01am [facility] Work Phone: 1(449) 865-871603-26-2025 Evaluation note* Diagnosis Onset Date Resolution Status [...] sleep apnea)acuteJune 2024 2:34pmSecondary polycythemiaacuteJune 2024 2:34pm [facility] Work Phone: 1(527) 241-242803-25-2025 History of Present illness Narrative* Oz Kincaid MD - 07/21/2024 2:45 PM EDTAssociated Problem(s): Cognitive decline (Continue current regimen.) [facility] records - neuro consults, EEG, [...] & Plan Cognitive decline (Continue current regimen.) [facility] records - neuro consults, EEG, [...] restlessness; gait ataxia. Imaging MR Keller ([facility]) - HNP T12-L1 mild; canal sten L2-3 mod; errol sten L2-3 modB L4-5-S1 modB US LE (12/2016, [facility]) - atherosclerosis, nl PVR. Testing [facility] (11/2023) - acute L S1 (nEMG) + PN pattern signif worse . . . . (03/2017, [facility]) - PN pattern Labs - B70=326/15/116/>22.3, was 359/16.7H/328/>22.3 ... A1c=8.4, was 10.4(!) ,,, [...] now that pt is off nortrip. [facility] ~XAVIER for possible TIA. Walking drunk , Tim. 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 Imaging MR brain (10/[facility]23, [facility]) - not available via [facility] - atrophy age- appropriate & ^T2/FLAIR [...] ___, orig: ___ Motor - ___, unchanged: Service Bar Cashier 4B ... APB 4R 4+L, orig: ___ [...] smear of cervix hpv positive COVID-19 Diabetes ([facility]/HCC) Fibromyalgia High cholesterol ([facility]) History of medical problems ulcer HTN (hypertension) [...] Take with meals. Continuous Blood Gluc Sensor ([employer] [place] 14 Day Sensor) [facility] [...] if tolerated 60 tablet 3 Droplet Pen [place] 32G X 4 MM [facility] [...] M.D. [facility] ? [address] [facility] [address] ? [place] [id number] ? ? fax Neurology ? Clinical Neurophysiology ? Epilepsy ? Sleep Disorders ? Clinical Informatics documented in this encounterCameron Regional Medical [id number] History of Present illness Narrative* Roland Faust [...] exam, discussion and plan. documented in this [facility] Work Phone: 1(798) 908-625202-28-2025 Instructions* Patient Instructions* Melina Lee LPN - [...] 6 months with ekg documented in [facility]The [facility] Work Phone: 1(120) 876-465601-21-2025 Telephone encounter Note* Telephone Encounter - Cali Duque - 05/19/2024 11:20 AM EST Daughter same day canceled same day canceled today's appointment due to overslept. RS for 06/02/24 [facility] [id number] Miscellaneous Notes* Telephone Encounter - Cali Duque - 05/19/2024 11:20 AM EST Daughter same day canceled same day canceled today's appointment due to overslept. RS for 06/02/24 documented in this encounterCameron Regional Medical CenterUyrwwlxnno12-74-9140 [place] [address] Neurology Progress Note Signed with Jamila Patient: Taye Gay MR#: [id number] : 1955 Acct:[id number] Age/Sex: 68 / F Adm Date: 4 Loc: 3T Room: [address] [place] [address] Type: ADM IN Attending Dr: Priscilla Lang MD Copies to: ~ ADDENDUM1 Patient has refused to remove her nail albanian for MRI. Unable to confirm whether or [...] may be metabolic in nature and not loss prevention representative necessarily of transient ischemia or of [...] 0608 Signed By: 04/30/24 0708 [facility]01-02-2025 Discharge summary Author Priscilla Lang [facility] CenterNote Date/TimeJanuary 2024 10:28am [place] [address] Discharge Summary Signed Patient: Taye Gay MR#: [id number] : 1955 Acct:[id number] Age/Sex: 68 / F Adm Date: 4 Loc: 3T Room: [address] [place] [address]: Priscilla Lang MD Copies to: [...] taking multiple medications that could potentially cause DRYWALL SPRAYER side effect and toxic encephalopathy. Diagnosis is [...] polypharmacy regimen to reduce her risk of DRYWALL SPRAYER side effects or drug?drug interaction.At this time, [...] ask her primary care doctor to obtain [facility] record entirely to address abnormalities seen [...] ask your primary care provider [facility] entirely to follow up on [...] or having drug?drug interaction. [facility] does not mean that your medical [...] constipation) (DME) pen needle, diabetic [Sure-Fine Pen [place]] .Route lidocaine 5 % ointment 1 applic [...] % (Auto) 63.5, Lymph % (Auto) 24.9, [place] % (Auto) 8.3, Eos % (Auto) 2.9, Baso % (Auto) 0.4, Nucleat RBC Rel Count 0.0, Neut # (Auto) 4.6, Lymph # (Auto) 1.8, [place] # (Auto) 0.6, Eos # (Auto) 0.2, [...] <Electronically signed by Priscilla Lang MD> 04/30/24 1029 [facility] Work Phone: 1(662) 193-310401-02-[address] [address] Discharge Summary Signed Patient: Taye Gay MR#: [id number] : 1955 Acct:[id number] Age/Sex: 68 / F Adm Date: 4 Loc: 3T Room: [address] [place] [address]: Priscilla Lang MD Copies to: [...] taking multiple medications that could potentially cause DRYWALL SPRAYER side effect and toxic encephalopathy. Diagnosis is [...] polypharmacy regimen to reduce her risk of DRYWALL SPRAYER side effects or drug?drug interaction.At this time, [...] ask her primary care doctor to obtain [facility] record entirely to address abnormalities seen [...] ask your primary care provider [facility] entirely to follow up on [...] or having drug?drug interaction. [facility] does not mean that your medical [...] constipation) (DME) pen needle, diabetic [Sure-Fine Pen [place]] .Route lidocaine 5 % ointment 1 applic [...] % (Auto) 63.5, Lymph % (Auto) 24.9, [place] % (Auto) 8.3, Eos % (Auto) 2.9, Baso % (Auto) 0.4, Nucleat RBC Rel Count 0.0, Neut # (Auto) 4.6, Lymph # (Auto) 1.8, [place] # (Auto) 0.6, Eos # (Auto) 0.2, [...] Lang MD 04/30/24 1016 Signed By: 04/30/[address] [place], [place] 9280101-01-2025 Consult note Author Lit Clark [facility] CenterNote Date/TimeJanuary 2024 11:07am [place] [address] Neurology Consult Note Signed Patient: Taye Gay MR#: [id number] : 1955 Acct:[id number] Age/Sex: 68 / F Adm Date: 4 Loc: Room: [address] [place] [address] Type: ADM IN Attending Dr: Priscilla Lang MD Copies to: DO Sandra Garrido DO Rafik Massouh, MD~ HPI Consult Date: 04/29/24 Manufacturing Electrician: Lit Clark DO Reason for consult: Slurred [...] negative unless noted below or in HPI [facility] Medical History BMI 32.0-32.9,adult Abnormal thyroid blood [...] (Stool Softener) 100 mg PO DAILY PRN jopfcgyoscix59/14/24 [History Confirmed 04/28/24] multivitamin 1 tab PO DAILY 06/12/23 [History Confirmed 04/28/24] pen needle, diabetic [Sure-Fine Pen [place]] 06/12/23 [History Confirmed 04/28/24] metformin 500 mg [...] Oz Bowling M.D.04/28/2024 9:46 PM Dictation Location: [place] [address] 04/28/24 19:44 IMPRESSION: No acute intracranial pathology. No evidence of focal stenosis, aneurysmal dilatation, dissection or occlusion. Impression dictated by: Oz Bowling M.D.04/28/2024 9:44 PM Dictation Location: [place] [address] Assessment/Plan (1) Atrial fibrillation: Qualifiers: Atrial fibrillation [...] may be metabolic in nature and not loss prevention representative necessarily of transient ischemia or of [...] <Electronically signed by Lit Clark DO> 04/29/24 5215 [facility] Work Phone: 1(221) 725-996701-01-2025 Progress note Author Priscilla Lang [facility] CenterNote Date/TimeJanuary 2024 11:02am [place] [address] Hospitalist Progress Note Signed Patient: Taye Gay MR#: [id number] : 1955 Acct:[id number] Age/Sex: 68 / F Adm Date: 4 Loc: Room: [address] [place] [address] Type: ADM IN Attending Dr: Priscilla Lang [...] of dementia, possible Alzheimer's dementia -continue home gbolsgwjw66 mg twice daily and donepezil 20 mg [...] <Electronically signed by Priscilla Lang MD> 04/29/24 6817 [facility] Work Phone: 1(386) 889-157901-01-2025 [place] [address] Neurology Consult Note Signed Patient: Taye Gay MR#: [id number] : 1955 Acct:[id number] Age/Sex: 68 / F Adm Date: 4 Loc: Room: [address] [place] [address] Type: ADM IN Attending Dr: Priscilla Lang MD Copies to: DO Sandra Garrido DO Rafik Massouh, MD~ HPI Consult Date: 04/29/24 Manufacturing Electrician: Lit Clark DO Reason for consult: Slurred [...] (Stool Softener) 100 mg PO DAILY PRN abivkjhnyocy33/14/24 [History Confirmed 04/28/24] multivitamin 1 tab PO DAILY 06/12/23 [History Confirmed 04/28/24] pen needle, diabetic [Sure-Fine Pen [place]] 06/12/23 [History Confirmed 04/28/24] metformin 500 mg [...] 9:46 PM Dictation Location: [facility] Head CT 04/28/24 19:44 IMPRESSION: No acute [...] may be metabolic in nature and not loss prevention representative necessarily of transient ischemia or of [...] 0858 Signed By: 04/29/24 1107 [facility]01-01-[address] [address] Hospitalist Progress Note Signed Patient: Taye Gay MR#: [id number] : 1955 Acct:[id number] Age/Sex: 68 / F Adm Date: 4 Loc: 3T Room: [id number] Type: ADM IN Attending Dr: Priscilla Lang [...] of dementia, possible Alzheimer's dementia -continue home affzcxipe26 mg twice daily and donepezil 20 mg [...] MD 04/29/24 1059 Signed By: 04/29/24 1102 [facility]01-01-2025 History and physical note Author Jori Hearn [facility] CenterNote Date/TimeJanuary 2024 6:39[place] [address] Hospitalist H&P Signed Patient: Taye Gay MR#: [id number] : 1955 Acct:[id number] Age/Sex: 68 / F Adm Date: 4 Loc: 3T Room: [address] [place] [address] Type: ADM IN Attending Dr: Jori Hearn [...] of dementia, possible Alzheimer's dementia -continue home aymhsfnbu45 mg twice daily and donepezil 20 mg daily 12. Atrial fibrillation - continue Eliquis 5 mg twice daily for anticoagulationand carvedilol 12.5 mg twice daily. EKG in ER shows NSR 13. Hypoxia - no respiratory distress or cardiopulmonary complaints to accompany this. Will monitortelemetry and address as needed [facility] Medical History BMI 32.0-32.9,adult Abnormal thyroid blood [...] (Stool Softener) 100 mg PO DAILY PRN xfufrrecyuug65/14/24 [History Confirmed 04/28/24] multivitamin 1 tab PO DAILY 06/12/23 [History Confirmed 04/28/24] pen needle, diabetic [Sure-Fine Pen [place]] 06/12/23 [History Confirmed 04/28/24] metformin 500 mg [...] % (Auto) 24.6 % (.) 04/28/24 19:54 [place] % (Auto) 7.6 % (.) 04/28/24 19:54 Eos % (Auto) 2.7 % (.) 04/28/24 19:54 Baso % (Auto) 1.1 % (.) 04/28/24 19:54 Nucleat RBC Rel Count 0.2 /100 WBC (0-0.5) 04/28/24 19:54 Neut # (Auto) 6.5 x10E3/uL (1.8-7.7) 04/28/24 19:54 Lymph # (Auto) 2.5 x10E3/uL (1.00-4.8) 04/28/24 19:54 [place] # (Auto) 0.8 x10E3/uL (0.0-0.8) 04/28/24 19:54 [...] pH 5.5 (5.0-9.0) 04/28/24 22:02 Ur Specific [place] 1.038 (1.001-1.030) H 04/28/24 22:02 Urine Protein [...] signed by Jori Hearn DO> 04/29/24 39 [facility] Work Phone: 1(480) 798-129901-01-2025 [place] [address] Hospitalist H&P Signed Patient: Taye Gay MR#: [id number] : 1955 Acct:[id number] Age/Sex: 68 / F Adm Date: 4 Loc: Room: [address] [place] [address] Type: ADM IN Attending Dr: Jori Hearn [...] of dementia, possible Alzheimer's dementia -continue home pspavjeic68 mg twice daily and donepezil 20 mg daily 12. Atrial fibrillation - continue Eliquis 5 mg twice daily for anticoagulationand carvedilol 12.5 mg twice daily. EKG in ER shows NSR 13. Hypoxia - no respiratory distress or cardiopulmonary complaints to accompany this. Will monitortelemetry and address as needed [facility] Medical History BMI 32.0-32.9,adult Abnormal thyroid blood [...] (Stool Softener) 100 mg PO DAILY PRN kjxbvsfydiyd56/14/24 [History Confirmed 04/28/24] multivitamin 1 tab PO DAILY 06/12/23 [History Confirmed 04/28/24] pen needle, diabetic [Sure-Fine Pen [place]] 06/12/23 [History Confirmed 04/28/24] metformin 500 mg [...] % (Auto) 24.6 % (.) 04/28/24 19:54 [place] % (Auto) 7.6 % (.) 04/28/24 19:54 Eos % (Auto) 2.7 % (.) 04/28/24 19:54 Baso % (Auto) 1.1 % (.) 04/28/24 19:54 Nucleat RBC Rel Count 0.2 /100 WBC (0-0.5) 04/28/24 19:54 Neut # (Auto) 6.5 x10E3/uL (1.8-7.7) 04/28/24 19:54 Lymph # (Auto) 2.5 x10E3/uL (1.00-4.8) 04/28/24 19:54 [place] # (Auto) 0.8 x10E3/uL (0.0-0.8) 04/28/24 19:54 [...] pH 5.5 (5.0-9.0) 04/28/24 22:02 Ur Specific [place] 1.038 (1.001-1.030) H 04/28/24 22:02 Urine Protein [...] 59 Signed By: 04/29/24 0639 [facility]12-31-2024 Radiology Diagnostic study note [facility] Main [place] [address] [place] [address] CT Scan Report Signed Patient: Taye Gay MR#: [id number] : 1955 Acct:[id number] Age/Sex: 68 / F ADM Date: 4 Loc: ER Room: Type: [facility] ER Attending Dr: Copies to: Weslye Villafuerte PA-C~ Ordering Provider: Wesley Villafuerte PA-C Date of Service: 04/28/24 CT/CT angio head: weakness ([id number]) CT/CT angio neck: weakness ([id number]) CT/CT head/brain wo con: weakness CT head/brain [...] Oz Bowling M.D.04/28/2024 9:44 PM Dictation Location: [place] [address] Transcribed By: AMY 04/28/242143 Dictated By: Oz Bowling II, MD 04/28/242129 Signed By: 04/28/242143 [facility] Work Phone: 1(485) 348-997612-31-2024 Evaluation note* Diagnosis Onset Date Resolution Status [...] (transient ischemic attack)acute May 07, 2024 1:02pm [facility] Work Phone: 1(226) 911-580512-31-2024 Evaluation note* Diagnosis Onset Date Resolution Status [...] 2024 10:54amPAD (peripheral artery disease)acuteMarch 2024 10:54am [facility] Work Phone: 1(902) 602-313812-17-2024 Evaluation note* Diagnosis Onset Date Resolution Status Admit Date High granulocyte count acuteDece2023 9:30amSecondary polycythemiaacutece2023 9:30amBMI 32.0-32.9,adultacuteDecember 2023 11:14amChronic kidney disease (CKD) stage G2/A2, mildly decreased glomerular filtracuteDecember 2023 11:14amDietary counseling and surveillanceacuteApril 28, 2024 11:14am HyperlipidemiaacuteDecember 2023 11:14amHypertensionacuteDecember 2023 11:14amPeripheral neuropathyacutecember 2023 11:14amType 2 diabetes mellitusacutecember 2023 11:14amVitamin B 12 deficiencyacuteDecember 2023 11:14amTIA (transient ischemic attack)acutecemb2023 10:38pm [facility] Work Phone: 1(384) 344-930812-17-2024 Evaluation note* Diagnosis Onset Date Resolution Status [...] 28, 2024 10:38pmTIA (transient ischemic attack)acutece2023 10:38pm [facility] Work Phone: 1(619) 887-543912-17-2024 Evaluation note* Diagnosis Onset Date Resolution Status [...] attack)acutecember 2023 10:38pmCigarette nicotine dependenceacuteJanuary 2024 1:02pm [facility] Work Phone: 1(485) 356-371312-17-2024 Evaluation note* Diagnosis Onset Date Resolution Status [...] 2024 1:02pmTIA (transient ischemic attack)acuteJanuary 2024 1:02pm [facility] Work Phone: 1(483) 976-164812-11-2024 History of Present illness Narrative* Karl Fritz, BARRIE - 04/08/2024 4:00 PM EST Images from the original note were not included. HPI: Patient presents today complaining of an ulcer on the lateral 5th right foot. Patient has pain withwalking and standing due to this lesion. Patient has tried [facility] for treatment, x-ray, antibiotic, (not taking [...] 7. RTC: 2 weeks. documented in this encounterCameron Regional Medical CenterUyazhgqafc93-23-4580 History of Present illness Narrative* Oz Kincaid [...] in about 6 months (around 10/06/2024), or TOP PRECIPITATOR OPERATOR HELPER. History of Present Illness, Associated Treatments and [...] Restlessness well controlled. Imaging MR L-s ([facility]) - HNP T12-L1 mild; canal sten L2-3 mod; errol sten L2-3 modB L4-5-S1 modB US LE (12/2016, [facility]) - atherosclerosis, nl PVR. Testing [facility] (11/2023) - acute L S1 (nEMG) + PN pattern signif worse . . . . (03/2017, [facility]) - PN pattern Labs - F42=951/15/116/>22.3, was 359/16.7H/328/>22.3 ... A1c=8.4, was 10.4(!) ,,, [...] off nortrip. Onset Semeiology Imaging MR brain ([facility]23[facility]) - not available via [facility] - [...] ___, orig: ___ Motor - ___, unchanged: Service Bar Cashier 4B ... APB 4R 4+L, orig: ___ [...] smear of cervix hpv positive COVID-19 Diabetes ([facility]/HCC) Fibromyalgia High cholesterol ([facility]) History of medical problems ulcer HTN (hypertension) ([facility]) Neuropathy Rheumatoid arthritis ([facility]/HCC) Scarlet fever Stomach ulcer Tonsillitis Past [...] in the morning. Continuous Blood Gluc Sensor ([employer] [place] 14 Day Sensor) [facility] [...] if tolerated 60 tablet 3 Droplet Pen [place] 32G X 4 MM [facility] [...] Kincaid M.D. [facility] ? [address] ? [place], [place] [address] ? ? fax Neurology ? Clinical Neurophysiology ? Epilepsy ? Sleep Disorders ? Clinical Informatics documented in this encounterCameron Regional Medical CenterQfzfmmqlqo17-87-0636 History of Present illness Narrative* Roland Faust [...] exam, discussion and plan. documented in this [facility] Work Phone: 1(886) 800-618711-27-2024 Instructions* Patient Instructions* Dave Meneses MA - [...] time of your visit. documented in this [facility] Work Phone: [phone]) 616-784310-29-2024 History of Present illness Narrative* Oz Kincaid MD - 02/25/2024 2:43 PM EDTAssociated Problem(s): PO positive Get Dr. Gonzalez's note (2nd request). * Oz Kincaid MD - 02/25/2024 2:15 PM EDTAssociated Problem(s): Cognitive decline Add memantine 10 -> bid. Then add donepezil 10, titrate. Handout. Get MR images transferred to [facility] PACS for my review. * Oz [...] Handout. Get MR images transferred to [facility] PACS for my review. Neurogenic pain [...] Restlessness well controlled. Imaging [facility] - HNP T12-L1 mild; canal sten L2-3 mod; errol sten L2-3 modB L4-5-S1 modB US LE (12/2016, [facility]) - atherosclerosis, nl PVR. Testing [facility] (11/2023) - acute L S1 (nEMG) + PN pattern signif worse . . . . (03/2017, [facility]) - PN pattern Labs - L51=106/15/116/>22.3, was 359/16.7H/328/>22.3 ... A1c=8.4, was 10.4(!) ,,, [...] nortrip. Onset Semeiology Imaging MR brain ([facility]) - not available via [place]IP - [...] ___, orig: ___ Motor - ___, unchanged: Service Bar Cashier 4B ... APB 4R 4+L, orig: ___ [...] Gluc Sensor (FreeStyle [place] 14 Day Sensor) [facility] [...] 100 mg in the evening. Droplet Pen [place] 32G X 4 MM mis use 1 [...] ? [address] ? [place], [place] [address] ? ? fax Neurology ? Clinical Neurophysiology ? Epilepsy ? Sleep Disorders ? Clinical Informatics documented in this encounterCameron Regional Medical [id number] History of Present illness Narrative* Karl Fritz DPM - 02/10/2024 2:00 PM EDT Images from the original note were not included. HPI: Patient presents today complaining of an ulcer on the plantar 1st met right foot. They have noticedthis for the past month (10/2023). Patient has pain with walking and standing due to this lesion. Patient has tried [facility] for treatment, x-ray, antibiotic, (not taking [...] 7. RTC: 2 weeks. documented in this encounterCameron Regional Medical CenterWuyvlqrgzk03-80-6491 History of Present illness Narrative* Karl Fritz DPM - 01/27/2024 10:30 AM EDT Images from the original note were not included. HPI: Patient presents today complaining of an ulcer on the plantar 1st met right foot. They have noticedthis for the past month (10/2023). Patient has pain with walking and standing due to this lesion. Patient [facility] for treatment, x-ray, antibiotic, (not taking d/t [...] 1 week for recheck. documented in this encounterCameron Regional Medical CenterHdynamwieb66-30-2679 History of Present illness Narrative* Karl Fritz [...] 1 week for recheck. documented in this encounterCameron Regional Medical [id number] Telephone encounter Note* Telephone Encounter - Cali Duque - 01/10/2024 2:34 PM EDT Called and spoke with Corinna twice both times got disconnected. On purpose or by accident not sure, second time Corinna was given Dr Kincaid's answer. Not sure if she got full and complete answer, but she got enough of it. [facility] Medical CenterRrmmqebkil29-78-0431 Miscellaneous Notes* Telephone Encounter - Cali Duque [...] x several days, then 300 bid Corinna [phone] documented in this encounterCameron Regional Medical CenterFtpziwijdh78-88-2617 Telephone encounter Note* Telephone Encounter - Cali Duque - 01/08/2024 12:37 PM EDT Daughter (Corinna Ayala) called, She was talking with Taye's Nurse, They would like to know if Gabapentin would be a better option for Taye than the PGB? You just inc her PGB from 1 cap bid to 150/300 x several days, then 300 bid Corinna [phone] [facility] CenterIhiwqjiqzb47-48-4730 History of Present illness Narrative* Oz Kincaid [...] Restlessness well controlled. Imaging MR L-s [facility]) - HNP T12-L1 mild; canal sten L2-3 mod; errol sten L2-3 modB L4-5-S1 modB US LE (12/2016, [facility]) - atherosclerosis, nl PVR. Testing [facility] (11/2023) - acute L S1 (nEMG) + PN pattern signif worse . . . . (03/2017, [facility]) - PN pattern Labs - D42=046/15/116/>22.3, was 359/16.7H/328/>22.3 ... 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 4R 4+L, orig: ___ [...] smear of cervix hpv positive COVID-19 Diabetes ([facility]/HCC) Fibromyalgia High cholesterol ([facility]) History of medical problems ulcer HTN (hypertension) ([facility]) Neuropathy Rheumatoid arthritis ([facility]) Scarlet fever Stomach ulcer Tonsillitis Past [...] Gluc Sensor (FreeStyle [place] 14 Day Sensor) [facility] apply 1 SENSOR as directed every 14 days use with DEVICE to MONIT... (REFER TO PRESCRIPTION NOTES). cyanocobalamin (Vitamin B-12) 2500 MCG tablet Docusate Sodium (DSS) 100 MG capsule Take 100 mg by mouth in the morning and 100 mg in the evening. Droplet Pen [place] 32G X 4 MM [facility] [...] 01/07/2024. Oz Kincaid M.D. documented in this encounterCameron Regional Medical [id number] History of Present illness Narrative* Karl Fritz [...] due to this lesion. Patient [facility] for treatment, x-ray, antibiotic, (not taking d/t [...] 7. RTC: 2 weeks. documented in this encounterCameron Regional Medical CenterRzqkuiifwe91-18-3603 History of Present illness Narrative* Oz Kincaid [...] arranged Oz Kincaid M.D. documented in this encounterCameron Regional Medical CenterGcbubrzyik96-04-6267 History of Present illness Narrative* Roland Faust [...] this encounterUniversity [facility] Work Phone: 1(242) 988-142408-19-2024 Instructions* Patient Instructions* Sofie Dean LPN - [...] to Increase physical activity. documented in [facility] encounterThe [facility] Work Phone: 1([phone]) 993-993007-17-2024 History of Present illness Narrative* Jonas Ch [...] Cardiology 2. Nonischemic cardiomyopathy (Multi) Resolved with jainism of sinus rhythm 3. Hypercholesteremia Review of [...] exam, discussion and plan. documented in this encounterThe [facility] System Work Phone: 1(216) 818-587107-17-2024 Instructions* Patient Instructions* Dakota Barraza RN - [...] to Increase physical activity documented in this encounterThe [facility] System Work Phone: 1(635) 302-671107-15-2024 Progress note Author Chaka Frye [facility] November 11, 2023 4:15pmNote Date/TimeJuly 2023 4:15pm[place] [address] Hospitalist Progress Note Signed Patient: Taye Gay MR#: [id number] : 1955 Acct:[id number] Age/Sex: 67 / F Adm Date: 4 Loc: 4N Room: 2R6000-4 Type: ADM IN Attending Dr: Chaka Frye [...] <Electronically signed by Chaka Frye MD> 11/11/23 1612 [facility] Work Phone: 1([phone]) 678-321007-15-2024 Consult note Author Lit Clark [facility] November 11, 2023 3:11pmNote Date/TimeJuly 2023 10:43[place] [id number] Neurology Consult Note Signed Patient: Taye Gay MR#: [id number] : 1955 Acct:[id number] Age/Sex: 67 / F Adm Date: 4 Loc: 4N Room: 0J9251-9 Type: ADM IN Attending Dr: Chaka Frye MD Copies to: DO Geraldo Garrido MD, RES MD Sandra Mar, ~ HPI Consult Date: 11/11/23 Manufacturing Electrician: Geraldo Vo MD, RES Reason for consult: Progressive generalized weakness Consult Narrative HPI: Taye Gay is a 67 y.o. female with a PMH of esophageal stricture, cigarette smoker, GERD, HTN, type 2 diabetes mellitus, HLD, CKD stage G2/A2, peripheral neuropathy and vit B12 deficiency who presented to [facility] on 11/10/23 for concerns regarding generalized weakness. Neurology was consulted for evaluation of generalized weakness. Additional HPI is noted in Assessment and Plan. [facility] Medical History History of esophageal stricture BMI [...] Father Heart disease [facility] Problem: Diagnosed with Stroke Cancer throat heart [...] Confirmed 11/09/23] pen needle, diabetic [Sure-Fine Pen [place]] 06/12/23 [History Confirmed 11/09/23] omeprazole 20 mg [...] Oz Bowling M.D.11/10/2023 1:15 PM Dictation Location: [place] [address] Therapy Recommendations Therapy Recommendations: OT Recommendations OT Recommended [facility] Location OT Recommended Services at Physical Therapy,Occupational Therapy Discharge PT Recommendations PT Recommended Discharge [facility] Location PT Recommended Services at Physical Therapy,Occupational Therapy Discharge Assessment/Plan (1) Ambulatory dysfunction: (2) Weakness: (3) Hypothyroid: Qualifiers: Hypothyroidism type: unspecified Qualified Code(s): E03.9 - Hypothyroidism, unspecified (4) Hypomagnesemia: (5) Type 2 diabetes mellitus with hyperglycemia: Qualifiers: Diabetes mellitus long-term insulin use: unspecified long-term insulin use status Qualified Code(s): E11.65 - Type 2 diabetes mellitus with hyperglycemia (6) Vitamin B 12 deficiency: Plan CONSULT REASON: Generalized weakness HPI: Taye Gay is a 67 y.o. female with a PMH of esophageal stricture, cigarette smoker, GERD, HTN, type 2 diabetes mellitus, HLD, CKD stage G2/A2, peripheral neuropathy and vit B12 deficiency who presented to [facility] on 11/10/23 for concerns regarding [...] signed by MD GAGE Vo> 11/11/23 1043 [facility] Work Phone: 1(790) 971-506707-14-2024 Progress note Author Kirt Renae [facility] November 10, 2023 12:24pmNote Date/TimeJuly 2023 12:00pm[place] [address] Hospitalist Progress Note Signed Patient: Taye Gay MR#: [id number] : 1955 Acct:[id number] Age/Sex: 67 / F Adm Date: 4 Loc: 4N Room: [address] [place] [address] Type: ADM IN Attending Dr: Kirt Renae [...] ESR and CRP -Obtain anti Sushma, Anti AUTO BUMPER STRAIGHTENER, anti dsDNA -Obtain CT head without contrast [...] signed by Kirt Renae MD> 11/10/23 1224 [facility] Work Phone: 1([phone]) 356-113207-14-2024 History and physical note Author Jluis Campos [facility] November 10, 2023 6:20amNote Date/TimeJuly 2023 6:11am[place] [address] Hospitalist H&P Signed Patient: Taye Gay MR#: [id number] : 1955 Acct:[id number] Age/Sex: 67 / F Adm Date: 4 Loc: Room: [address] [place] [address] Type: ADM IN Attending Dr: Jluis Campos [...] negative unless noted below or in HPI [facility] Medical History History of esophageal stricture BMI [...] Father Heart disease [facility] Problem: Diagnosed with Stroke Cancer throat heart [...] Confirmed 11/09/23] pen needle, diabetic [Sure-Fine Pen [place]] 06/12/23 [History Confirmed 11/09/23] omeprazole 20 mg [...] weaknesses were noted, patient unable to ambulate. Yblv-ki-ngwr test was normal. No tremors or ataxia with tgptoi-ef-wxwu movements. Neuro: AOx3, CN II-VII intact. Moves [...] % (Auto) 26.0 % (.) 11/10/23 03:41 [place] % (Auto) 8.2 % (.) 11/10/23 03:41 Eos % (Auto) 3.7 % (.) 11/10/23 03:41 Baso % (Auto) 0.9 % (.) 11/10/23 03:41 Nucleat RBC Rel Count 0.1 /100 WBC (0-0.5) 11/10/23 03:41 Neut # (Auto) 5.2 x10E3/uL (1.8-7.7) 11/10/23 03:41 Lymph # (Auto) 2.2 x10E3/uL (1.00-4.8) 11/10/23 03:41 [place] # (Auto) 0.7 x10E3/uL (0.0-0.8) 11/10/23 03:41 [...] pH 6.0 (5.0-9.0) 11/10/23 05:02 Ur Specific Weed 1.007 (1.001-1.030) 11/10/23 05:02 Urine Protein Negative [...] <Electronically signed by Jluis Campos DO> 11/10/23619 [facility] Work Phone: 1(959) [phone] [facility] History of Present illness Narrative* [...] mellitus with other specified complication, 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 insulin use (Multi) Managed by other providers [...] exam, discussion and plan. documented in this encounterThe [facility] Work Phone: [phone]) 542-698006-10-2024 Instructions* Patient Instructions* Cary Mcdonnell RN - [...] Fall Prevention Education Given documented in this encounterThe [facility] Work Phone: 1(339) 303-731305-18-2024 Progress note Author Faraz Gilliam [facility] September 14, 2023 1:34pmNote Date/TimeMay 2023 1:26pm[place] [address] Cardiology Progress Note Signed Patient: Taye Gay MR#: [id number] : 1955 Acct:[id number] Age/Sex: 67 / F Adm Date: 4 Loc: 3T Room: [address] [place] [address] Type: ADM IN Attending Dr: Elva Florian [...] signed by Faraz Gilliam MD> 09/14/23 1334 [facility] Work Phone: 1(903) 380-866305-18-2024 Progress note Author Elva Florian [facility] September 14, 2023 2:03amNote Date/TimeMay 2023 6:15pm[place] [address] Hospitalist Progress Note Signed Patient: Taye Gay MR#: [id number] : 1955 Acct:[id number] Age/Sex: 67 / F Adm Date: 4 Loc: Room: [address] [place] [address] Type: ADM IN Attending Dr: Elva Florian [...] Tablet PO 09/11/24 21:59 30 mg QID [facility] Administration Docusate Sodium 100 mg 09/13/23 09:00 09/13/23 08:37 Docusate 100 Mg Capsule PO 09/12/24 08:59 100 mg DAILY [facility] Administration Empagliflozin 25 mg 09/13/23 09:00 09/13/23 08:38 Empagliflozin 25 Mg Tablet PO 09/12/24 08:59 25 mg DAILY [facility] Administration Folic Acid 1 mg 09/13/23 09:00 09/13/23 08:38 Folic Acid 1 Mg Tablet PO 09/12/24 08:59 1 mg DAILY [facility] Administration Glucose 0 gm 09/12/23 20:04 Dextrose 40% Gel 15 Gm Tube PO 09/11/24 20:03 PRN PRN Hypoglycemia Insulin Aspart 0 units 09/12/23 22:00 09/13/23 16:24 Insulin Aspart 300 Units/3 Ml Insuln.Pen SUBCUT 09/11/24 21:59 Not Given TID.WM.HS [facility] Protocol Insulin Glargine 20 units 09/13/23 09:00 09/13/23 08:40 Insulin Glargine 300 Units/3 Ml Insuln.Pen SUBCUT 09/12/24 08:59 20 units DAILY [facility] Administration Metoprolol Succinate 50 mg 09/14/23 09:00 Metoprolol Succinate 50 Mg Tab.Er.24h PO 09/13/24 08:59 DAILY [facility] Metoprolol Tartrate 5 mg 09/12/23 20:04 [...] signed by Elva Florian MD> 09/14/23 0203 [facility] Work Phone: [phone]) [phone] Consult note Author Jonas Ch [facility] September 13, 2023 12:25pmNote Date/TimeMay 2023 12:26pm[place] [address] Cardiology Consult Note Signed Patient: Taye Gay MR#: [id number] : 1955 Acct:[id number] Age/Sex: 67 / F Adm Date: 4 Loc: 3T Room: [address] [place] [address] Type: ADM INOo Attending Dr: Elva Florian [...] and no additional complaints, except as documented [facility] Medical History History of esophageal stricture BMI [...] Confirmed 09/12/23] pen needle, diabetic [Sure-Fine Pen [place]] 06/12/23 [History Confirmed 09/12/23] nortriptyline 50 mg [...] x10E3/uL Lymph # (Auto) 2.0 (1.00-4.8) x10E3/uL [place] # (Auto) 0.6 (0.0-0.8) x10E3/uL Eos # [...] ml @ 999 mls/hr IV .Q1H1M ONE Rx#:[id number] Oral 50 / 50 Output: Urine 600 [...] signed by MD Jonas Ch> 09/13/23 1225 [facility] Work Phone: 1([phone]) 249-332005-17-2024 History and physical note Author Elva Florian [facility] September 13, 2023 2:09amNote Date/TimeMay 2023 7:53pm[place] [address] Hospitalist H&P Signed Patient: Taye Gay MR#: [id number] : 1955 Acct:[id number] Age/Sex: 67 / F Adm Date: 4 Loc: Room: [address] [place] [address] Type: ADM INOo Attending Dr: Elva Florian [...] care Discussed with:?the medical team, the patient [facility] Medical History History of esophageal stricture BMI [...] Confirmed 09/12/23] pen needle, diabetic [Sure-Fine Pen [place]] 06/12/23 [History Confirmed 09/12/23] nortriptyline 50 mg [...] % (Auto) 20.2 % (.) 09/12/23 14:51 [place] % (Auto) 5.9 % (.) 09/12/23 14:51 Eos % (Auto) 1.7 % (.) 09/12/23 14:51 Baso % (Auto) 0.9 % (.) 09/12/23 14:51 Nucleat RBC Rel Count 0.2 /100 WBC (0-0.5) 09/12/23 14:51 Neut # (Auto) 7.0 x10E3/uL (1.8-7.7) 09/12/23 14:51 Lymph # (Auto) 2.0 x10E3/uL (1.00-4.8) 09/12/23 14:51 [place] # (Auto) 0.6 x10E3/uL (0.0-0.8) 09/12/23 14:51 [...] <Electronically signed by Elva Florian MD> 09/13/23208 [facility] Work Phone: 1(288) [phone] Evaluation note* Encounter Date Diagnosis Assessment Notes Treatment Notes Treatment Clinical Notes May, Type 2 diabetes mellitus with hy perglycemia (ICD-10 - E11.65) [facility] Other 01-23-2024 Evaluation note* Encounter Date Diagnosis Assessment Notes Treatment Notes Treatment Clinical Notes Apr, Primary insomnia (ICD-10 - F51.0 1) [facility] Other 12-11-2023 Evaluation note* Encounter Date Diagnosis Assessment Notes Treatment Notes Treatment Clinical Notes Mar, Type 2 diabetes mellitus with hy perglycemia (ICD-10 - E11.65) [facility] Other 11-06-2023 Evaluation note* Encounter Date Diagnosis [...] K21.9)Discussed can start famotidine PRN breakthrough GERD [facility] Other 10-02-2023 Evaluation note* Encounter Date Diagnosis Assessment Notes Treatment Notes Treatment Clinical Notes Jan, Primary insomnia (ICD-10 - F51.0 1) [facility] Other 09-11-2023 Evaluation note* Encounter Date Diagnosis Assessment Notes Treatment Notes Treatment Clinical Notes Dec, Type 2 diabetes mellitus with hy perglycemia (ICD-10 - E11.65) Managing type 2 diabetes material was published 1. Controlled, Type 2 diabetes with A1c 6.3% 2. Blood glucose levels improved. According to [facility] cgm download 12/25/2022- 01/07/2023: Avg glucose 156. [...] to make it easier material was published [facility] Other 09-06-2023 Evaluation note* Encounter Date Diagnosis Assessment Notes Treatment Notes Treatment Clinical Notes Dec, Esophageal stricture (ICD-10 - K 22.2) Dec,ysphagia (ICD-10 - R13.10)Patient has a narrow esophagus but is improving Patient is to continue omeprazole daily [facility] Other 09-01-2023 Evaluation note* Encounter Date Diagnosis Assessment Notes Treatment Notes Treatment Clinical Notes Dec, Primary insomnia (ICD-10 - F51.0 1) [facility] Other 08-22-2023 Evaluation note* Encounter Date Diagnosis Assessment Notes Treatment Notes Treatment Clinical Notes Nov, Primary insomnia (ICD-10 - F51.0 1) [facility] Other 08-02-2023 Evaluation note* Encounter Date Diagnosis [...] reviewed and amended by provider signed below. [facility] Other 07-11-2023 Evaluation note* Encounter Date Diagnosis Assessment Notes Treatment Notes Treatment Clinical Notes Oct, Primary insomnia (ICD-10 - F51.0 1) [facility] Other 06-01-2023 Evaluation note* Encounter Date Diagnosis Assessment Notes Treatment Notes Treatment Clinical Notes Sep, Type 2 diabetes mellitus with hy perglycemia (ICD-10 - E11.65) Managing type 2 diabetes material was published 1. Controlled, Type 2 diabetes with A1c 6.6% 2. Blood glucose levels improved. According to [facility] cgm download 09/13/2022- 09/26/2022: Avg glucose 151. [...] to make it easier material was published [facility] Other 05-15-2023 Evaluation note* Encounter Date Diagnosis Assessment Notes Treatment Notes Treatment Clinical Notes August, Primary hypertension (ICD-10 - I 10) August,Type 2 diabetes mellitus with hyperglycemia (ICD-10 - E11.65) [facility] Other 04-13-2023 Evaluation note* Encounter Date Diagnosis [...] F17.200)Due for LDCT for lung CA screening [facility] Other 04-10-2023 Evaluation note* Encounter Date Diagnosis Assessment Notes Treatment Notes Treatment Clinical Notes Jul, Primary insomnia (ICD-10 - F51.0 1) [facility] Other 03-08-2023 Evaluation note* Encounter Date Diagnosis Assessment Notes Treatment Notes Treatment Clinical Notes Jun, Primary insomnia (ICD-10 - F51.0 1) [facility] Other 02-21-2023 Evaluation note* Encounter Date Diagnosis Assessment Notes Treatment Notes Treatment Clinical Notes May, Type 2 diabetes mellitus with hy perglycemia (ICD-10 - E11.65) [facility] Other 02-20-2023 Evaluation note* Encounter Date Diagnosis Assessment Notes Treatment Notes Treatment Clinical Notes May, Type 2 diabetes mellitus with hy perglycemia (ICD-10 - E11.65) Managing type 2 diabetes material was published 1. Uncontrolled, Type 2 diabetes with A1c 7.1% 2. Blood glucose levels improved. According to [facility] cgm download 06/04/2022- 06/17/2022: Avg glucose 180. [...] - Z68.35)Setting weight-loss goals material was published [facility] Other 02-06-2023 Evaluation note* Encounter Date Diagnosis Assessment Notes Treatment Notes Treatment Clinical Notes May, Primary insomnia (ICD-10 - F51.0 1) [facility] Other 01-26-2023 Evaluation note* Encounter Date Diagnosis Assessment Notes Treatment Notes Treatment Clinical Notes Apr, Hyperlipidemia (ICD-10 - E78.5) [facility] Other 12-06-2022 Evaluation note* Encounter Date Diagnosis Assessment Notes Treatment Notes Treatment Clinical Notes Mar, Type 2 diabetes mellitus with hy perglycemia (ICD-10 - E11.65) [facility] Other 10-19-2022 Evaluation note* Encounter Date Diagnosis Assessment Notes Treatment Notes Treatment Clinical Notes Jan, Primary hypertension (ICD-10 - I 10) [facility] Other 09-13-2022 Evaluation note* Encounter Date Diagnosis Assessment Notes Treatment Notes Treatment Clinical Notes Dec, Type 2 diabetes mellitus with hy perglycemia (ICD-10 - E11.65) Managing type 2 diabetes material was published 1. Uncontrolled, Type 2 diabetes with A1c 7.7% 2. Blood glucose levels above target. According to [facility] cgm download 12/26/2021- 01/08/2022: Avg glucose 211. [...] given. Sent order for toujeo to [facility]. Dec,ietary counseling and surveillance (ICD-10 - Z71.3)Eat [...] last visit, continue with weight loss efforts [facility] Other 08-17-2022 Progress note Author Walter Montgomery [facility] December 13, 2021 8:52amNote Date/TimeAugust 2021 8:52[place] [id number] General Surgery Progress Note Signed Patient: Taye Gay MR#: [id number] : 1955 Acct:[id number] Age/Sex: 66 / F Adm Date: 2 Loc: Room: [address] [place] [address] Type: ADM INOo Attending Dr: Wilmer Vance [...] 12/09/21] insulin lispro 100 unit/mL subcutaneous pen ([facility] U-100 Insulin lispro) 1 sliding [...] 81 Mg Tablet.) 81 mg PO DAILY [facility] Stop: 12/10/22 08:59 Last Admin: 12/12/21 10:33 Dose: Not Given Atorvastatin Calcium (Atorvastatin 10 Mg Tablet) 10 mg PO DAILY [facility] Stop: 12/10/22 08:59 Last Admin: 12/12/21 10:33 Dose: Not Given Cyanocobalamin (Cyanocobalamin 1,000 Mcg Tablet) 1,000 mcg PO DAILY [facility] Stop: 12/13/22 08:59 Dextrose (Dextrose 50% In Water 25 Gm/50 Ml Syringe) 0 gm IV-PUSH PRN PRN PRN Reason: Hypoglycemia Stop: 12/09/22 11:18 Docusate Sodium (Docusate 100 Mg Capsule) 100 mg PO TID [facility] Stop: 12/12/22 21:59 Last Admin: 12/12/21 22:26 Dose: 100 mg Enoxaparin Sodium (Enoxaparin 40 Mg/0.4 Ml Syringe) 40 mg SUBCUT DAILY@10 [facility] Stop: 12/10/22 09:59 Last Admin: 12/12/21 [...] 50 mls @ 100 mls/hr IV Q24H [facility] Last Admin: 12/12/21 11:57 Dose: 100 mls/hr Sodium Chloride (0.9% Sodium Chloride 1,000 Ml) 1,000 mls @ 100 mls/hr IV .T61MEAN Stop: 12/12/22 00:00 Last Infusion: 12/13/21 03:35 [...] 25 Mg Capsule) 50 mg PO BID [facility] Stop: 12/09/22 20:59 Last Admin: 12/12/21 22:27 Dose: 50 mg Omeprazole (Omeprazole 20 Mg Capsule.Dr) 20 mg PO DAILY [facility] Stop: 12/10/22 08:59 Last Admin: 12/12/21 10:33 Dose: Not Given Ondansetron HCl (Ondansetron 4 Mg/2 Ml Vial) 4 mg IV-PUSH Q6H PRN PRN Reason: Nausea And Vomiting Stop: 12/12/22 18:19 Pioglitazone HCl (Pioglitazone 15 Mg Tablet) 15 mg PO DAILY [facility] Stop: 12/10/22 08:59 Last Admin: 12/12/21 [...] 15 Mg Capsule) 30 mg PO QHS [facility] Stop: 12/09/22 21:59 Last Admin: 12/12/21 [...] Sodium 137, Potassium 4.4, Chloride 105, Carbon Exgecmm74.6, BUN 12, Creatinine 0.75, Est GFR ( Amer) > 60, Est GFR (Non-Af Amer) > 60, TotalBilirubin 0.7, Direct Bilirubin 0.2, Indirect Bilirubin 0.5 12/13/21 05:58: Corrected WBC 9.4, Uncorrected WBC Count 9.4, RBC 4.41, Hgb 14.2, Hct 41.9, MCV 95.1, MCH 32.2, MCHC 33.9, RDW 12.9, Plt Count 178, MPV 9.3,Neut % (Auto) 90.4, Lymph % (Auto) 7.7, [place] % (Auto) 1.8, Eos % (Auto) 0.0, Baso % (Auto) 0.1, Neut # (Auto) 8.5 H, Lymph # (Auto) 0.7 L, [place]# (Auto) 0.2, Eos # (Auto) 0.0, Baso # (Auto) 0.0, Nucleated RBC % (auto) 0.0 12/12/21 20:42: POC Glucose 214 12/12/21 18:25: POC Glucose 178 12/12/21 15:26: POC Glucose 133 12/12/21 11:48: POC Glucose 167 12/12/21 07:47: PHA Creatinine Clear 83.77, Sodium 136, Potassium 3.8, Chloride 103, Carbon Ocpuflw53.5, BUN 5 L, Creatinine 0.76, Est GFR [...] % (Auto) 72.7, Lymph % (Auto) 16.1, [place] % (Auto) 8.8, Eos % (Auto) 2.1, Baso % (Auto) 0.3, Neut # (Auto) 5.3, Lymph # (Auto) 1.2, [place] # (Auto) 0.6, Eos# (Auto) 0.2, Baso [...] Neut % (Auto) 66.8, Lymph % (Auto) 21.0,[place] % (Auto) 9.2, Eos % (Auto) 2.6, Baso % (Auto) 0.4, Neut # (Auto) 4.1, Lymph # (Auto) 1.3, [place]# (Auto) 0.6, Eos # (Auto) 0.2, Baso [...] signed by DO Walter [place]> 12/13/21 0852 [facility] Work Phone: [phone] Progress note Author Teresa Tae [facility] December 12, 2021 8:43pmNote Date/TimeAugust 2021 2:49pm[place] [id number] Urology Progress Note Signed Patient: Taye Gay MR#: [id number] : 1955 Acct:[id number] Age/Sex: 66 / F Adm Date: 2 Loc: Room: [address] [place] [address] Type: ADM INOo Attending Dr: Arleen Stephen [...] Sodium 136, Potassium 3.8, Chloride 103, Carbon Cknropb27.5, BUN 5 L, Creatinine 0.76, Est GFR [...] % (Auto) 72.7, Lymph % (Auto) 16.1, [place] % (Auto) 8.8, Eos % (Auto) 2.1, Baso % (Auto) 0.3, Neut # (Auto) 5.3, Lymph # (Auto) 1.2, [place] # (Auto) 0.6, Eos# (Auto) 0.2, Baso [...] Neut % (Auto) 66.8, Lymph % (Auto) 21.0,[place] % (Auto) 9.2, Eos % (Auto) 2.6, Baso % (Auto) 0.4, Neut # (Auto) 4.1, Lymph # (Auto) 1.3, [place]# (Auto) 0.6, Eos # (Auto) 0.2, Baso [...] <Electronically signed by Teresa Strong MD> 12/12/212042 [facility] Work Phone: [phone] Progress note Author Arleen Stephen [facility] December 12, 2021 1:20pmNote Date/TimeAugust 2021 1:20pm[place] [address] Hospitalist Progress Note Signed Patient: Taye Gay MR#: [id number] : 1955 Acct:[id number] Age/Sex: 66 / F Adm Date: 2 Loc: Room: [address] [place] [address] Type: ADM INOo Attending Dr: Arleen Stephen [...] signed by Arleen Stephen MD> 12/12/21 1320 [facility] Work Phone: [phone] Progress note Author Walter [place] [facility] December 12, 2021 8:07amNote Date/TimeAugust 2021 8:07[place] [address] General Surgery Progress Note Signed Patient: Taye Gay MR#: [id number] : 1955 Acct:[id number] Age/Sex: 66 / F Adm Date: 2 Loc: Room: [address] [place] [address] Type: ADM INOo Attending Dr: Arleen Stephen [...] 50 mls @ 100 mls/hr IV Q24H [facility] Last Infusion: 12/11/21 10:15 Dose: Infused Sodium Chloride (0.9% Sodium Chloride 1,000 Ml) 1,000 mls @ 100 mls/hr IV .[id number] Stop: 12/12/22 00:00 Last Admin: 12/12/21 00:10 Dose: 100 mls/hr Insulin Aspart (Insulin Aspart 300 Units/3 Ml Insuln.Pen) 0 units SUBCUT TID.WM.HS [facility]; Protocol Stop: 12/09/22 11:59 Last Admin: 12/11/21 21:21 Dose: 3 units Nortriptyline HCl (Nortriptyline 25 Mg Capsule) 50 mg PO BID [facility] Stop: 12/09/22 20:59 Last Admin: 12/11/21 21:20 Dose: 50 mg Omeprazole (Omeprazole 20 Mg Capsule.Dr) 20 mg PO DAILY [facility] Stop: 12/10/22 08:59 Last Admin: 12/11/21 08:00 Dose: 20 mg Ondansetron HCl (Ondansetron 4 Mg/2 Ml Vial) 4 mg IV-PUSH Q8H PRN PRN Reason: Nausea And Vomiting Stop: 12/09/22 11:18 Pioglitazone HCl (Pioglitazone 15 Mg Tablet) 15 mg PO DAILY [facility] Stop: 12/10/22 08:59 Last Admin: 12/11/21 [...] 15 Mg Capsule) 30 mg PO QHS [facility] Stop: 12/09/22 21:59 Last Admin: 12/11/21 [...] Neut % (Auto) 66.8, Lymph % (Auto) 21.0,[place] % (Auto) 9.2, Eos % (Auto) 2.6, Baso % (Auto) 0.4, Neut # (Auto) 4.1, Lymph # (Auto) 1.3, [place]# (Auto) 0.6, Eos # (Auto) 0.2, Baso # (Auto) 0.0, Nucleated RBC % (auto) 0.1 12/11/21 11:05: POC Glucose 195 12/11/21 06:58: POC Glucose 172 12/10/21 21:10: POC Glucose 249 12/10/21 16:18: POC Glucose 176 12/10/21 11:20: POC Glucose 268 12/10/21 06:50: PHA Creatinine Clear 75.03, Sodium 139, Potassium 4.0, Chloride 107, Carbon Etsiihf98.2, BUN 8 L, Creatinine 0.86, Est GFR [...] signed by DO Walter [place]> 12/12/21 0807 [facility] Work Phone: [phone] Consult note Author Teresa Strong [facility] December 11, 2021 9:25pmNote Date/TimeAugust 2021 8:10pmLouis [place] [id number] Urology Consult Note Signed Patient: Taye Gay MR#: [id number] : 1955 Acct:[id number] Age/Sex: 66 / F Adm Date: 2 Loc: Room: [address] [place] [address] Type: ADM INOo Attending Dr: Arleen Stephen [...] Neut % (Auto) 66.8, Lymph % (Auto) 21.0,[place] % (Auto) 9.2, Eos % (Auto) 2.6, Baso % (Auto) 0.4, Neut # (Auto) 4.1, Lymph # (Auto) 1.3, [place]# (Auto) 0.6, Eos # (Auto) 0.2, Baso # (Auto) 0.0, Nucleated RBC % (auto) 0.1 12/11/21 11:05: POC Glucose 195 12/11/21 06:58: POC Glucose 172 12/10/21 21:10: POC Glucose 249 12/10/21 16:18: POC Glucose 176 12/10/21 11:20: POC Glucose 268 12/10/21 06:50: PHA Creatinine Clear 75.03, Sodium 139, Potassium 4.0, Chloride 107, Carbon Odxalps97.2, BUN 8 L, Creatinine 0.86, Est GFR ( Amer) > 60,Est GFR (Non-Af Amer) > 60, Glucose 153 H, Calcium 8.8 12/10/21 06:50: Corrected WBC 7.4, Uncorrected WBC Count 7.4, RBC 4.38, Hgb 14.0, Hct 41.5, MCV 94.9, MCH 32.0, MCHC 33.7, RDW 13.1, Plt Count 141 L D, MPV 9.3, Neut % (Auto) 63.3, Lymph % (Auto) 24.1, [place] % (Auto) 10.5, Eos % (Auto) 1.8, Baso % (Auto) 0.3, Neut # (Auto) 4.7, Lymph # (Auto) 1.8, [place] # (Auto) 0.8, Eos # (Auto) 0.1, [...] <Electronically signed by Teresa Strong MD> 12/11/21 2680 [facility] Work Phone: [phone] Consult note Author Walter [place] [facility] December 11, 2021 3:18pmNote Date/TimeAugust 2021 3:18pm[place] [address] General Surgery Consult Note Signed Patient: Taye Gay MR#: [id number] : 1955 Acct:[id number] Age/Sex: 66 / F Adm Date: 2 Loc: Room: [address] [place] [address] Type: ADM INOo Attending Dr: Arleen Stephen [...] 12/09/21] insulin lispro 100 unit/mL subcutaneous pen ([facility] U-100 Insulin lispro) 1 sliding [...] 81 Mg Tablet.Dr) 81 mg PO DAILY [facility] Stop: 12/10/22 08:59 Last Admin: 12/11/21 08:00 Dose: 81 mg Atorvastatin Calcium (Atorvastatin 10 Mg Tablet) 10 mg PO DAILY [facility] Stop: 12/10/22 08:59 Last Admin: 12/11/21 [...] 50 mls @ 100 mls/hr IV Q24H [facility] Last Infusion: 12/11/21 10:15 Dose: Infused Insulin Aspart (Insulin Aspart 300 Units/3 Ml Insuln.Pen) 0 units SUBCUT TID.WM.[facility]; Protocol Stop: 12/09/22 11:59 Last Admin: 12/11/21 11:33 Dose: 3 units Nortriptyline HCl (Nortriptyline 25 Mg Capsule) 50 mg PO BID [facility] Stop: 12/09/22 20:59 Last Admin: 12/11/21 08:00 Dose: 50 mg Omeprazole (Omeprazole 20 Mg Capsule.Dr) 20 mg PO DAILY [facility] Stop: 12/10/22 08:59 Last Admin: 12/11/21 08:00 Dose: 20 mg Ondansetron HCl (Ondansetron 4 Mg/2 Ml Vial) 4 mg IV-PUSH Q8H PRN PRN Reason: Nausea And Vomiting Stop: 12/09/22 11:18 Pioglitazone HCl (Pioglitazone 15 Mg Tablet) 15 mg PO DAILY [facility] Stop: 12/10/22 08:59 Last Admin: 12/11/21 [...] 15 Mg Capsule) 30 mg PO QHS [facility] Stop: 12/09/22 21:59 Last Admin: 12/10/21 [...] % (Auto) 66.8, Lymph % (Auto) 21.0, [place] % (Auto) 9.2, Eos % (Auto) 2.6, Baso % (Auto) 0.4, Neut # (Auto) 4.1, Lymph # (Auto) 1.3, [place] # (Auto) 0.6, Eos# (Auto) 0.2, Baso # (Auto) 0.0, Nucleated RBC % (auto) 0.1 12/11/21 11:05: POC Glucose 195 12/11/21 06:58: POC Glucose 172 12/10/21 21:10: POC Glucose 249 12/10/21 16:18: POC Glucose 176 12/10/21 11:20: POC Glucose 268 12/10/21 06:50: PHA Creatinine Clear 75.03, Sodium 139, Potassium 4.0, Chloride 107, Carbon Kdadeji04.2, BUN 8 L, Creatinine 0.86, Est GFR ( Amer) > 60,Est GFR (Non-Af Amer) > 60, Glucose 153 H, Calcium 8.8 12/10/21 06:50: Corrected WBC 7.4, Uncorrected WBC Count 7.4, RBC 4.38, Hgb 14.0, Hct 41.5, MCV 94.9, MCH 32.0, MCHC 33.7, RDW 13.1, Plt Count 141 L D, MPV 9.3, Neut % (Auto) 63.3, Lymph % (Auto) 24.1, [place] % (Auto) 10.5, Eos % (Auto) 1.8, Baso % (Auto) 0.3, Neut # (Auto) 4.7, Lymph # (Auto) 1.8, [place] # (Auto) 0.8, Eos # (Auto) 0.1, [...] Sodium 139, Potassium 3.9, Chloride 101, Carbon Pogfbis79.4, BUN 8 L, Creatinine 0.81, Est GFR [...] % (Auto) 79.8, Lymph % (Auto) 9.6, [place] % (Auto) 9.1, Eos % (Auto)1.1, Baso % (Auto) 0.4, Neut # (Auto) 10.3 H, Lymph # (Auto) 1.2, [place] # (Auto) 1.2 H, Eos # (Auto) 0.1, Baso # (Auto) 0.1, Nucleated RBC % (auto) 0.0 12/09/21 08:35: Urine Color Yellow, Urine Appearance Cloudy A, Urine pH 5.5, Ur Specific [place] 1.030, Urine Protein Negative, Urine Glucose (UA) [...] <Electronically signed by DO Walter [place]> 12/11/21 [facility] Work Phone: [phone] Progress note Author Arleen Stephen [facility] December 11, 2021 1:33pmNote Date/TimeAugust 2021 1:30pm[place] [address] Hospitalist Progress Note Signed Patient: Taye Gay MR#: [id number] : 1955 Acct:[id number] Age/Sex: 66 / F Adm Date: 2 Loc: Room: [address] [place] [address] Type: ADM INOo Attending Dr: Arleen Stephen [...] signed by Arleen Stephen MD> 12/11/21 1333 [facility] Work Phone: [phone] Progress note Author Arleen Stephen [facility] December 10, 2021 11:26amNote Date/TimeAugust 2021 11:26[place] [id number] Hospitalist Progress Note Signed Patient: Taye Gay MR#: [id number] : 1955 Acct:[id number] Age/Sex: 66 / F Adm Date: 2 Loc: 3T Room: [address] [place] [address] Type: ADM IN Attending Dr: Arleen Stephen [...] 1,000 Ml IV 12/09/22 11:29 75 mls/hr .[id number] [place] Administration Ceftriaxone Sodium 1 gm in [...] signed by Arleen Stephen MD> 12/10/21 1126 [facility] Work Phone: [phone] History and physical note Author Arleen Stephen [facility] December 09, 2021 11:38amNote Date/TimeAugust 2021 11:38am[place] [address] Hospitalist H&P Signed Patient: Taye Gay MR#: [id number] : 1955 Acct:[id number] Age/Sex: 66 / F Adm Date: 2 Loc: ER Room: Type: [facility] ER Attending Dr: Copies to: NON [...] 02/09/21] insulin lispro 100 unit/mL [facility] pen [email or web address] Insulin lispro) 1 sliding scaledose subcut [...] % (Auto) 9.6 % (.) 12/09/21 08:50 [place] % (Auto) 9.1 % (.) 12/09/21 08:50 Eos % (Auto) 1.1 % (.) 12/09/21 08:50 Baso % (Auto) 0.4 % (.) 12/09/21 08:50 Neut # (Auto) 10.3 x10E3/uL (1.8-7.7) H 12/09/21 08:50 Lymph # (Auto) 1.2 x10E3/uL (1.00-4.8) 12/09/21 08:50 [place] # (Auto) 1.2 x10E3/uL (0.0-0.8) H 12/09/21 [...] pH 5.5 (5.0-9.0) 12/09/21 08:35 Ur Specific [place] 1.030 (1.001-1.030) 12/09/21 08:35 Urine Protein Negative [...] signed by Arleen Stephen MD> 12/09/21 1138 [facility] Work Phone: [phone] Evaluation note* Encounter Date Diagnosis Assessment Notes [...] good exercise tolerance overall. [facility] however [...] to get her started back on this. [facility] Other 03-14-2022 Evaluation note* Encounter Date Diagnosis Assessment Notes Treatment Notes Treatment Clinical Notes Jun, Type 2 diabetes mellitus with hy perglycemia (ICD-10 - E11.65) Managing type 2 diabetes material was published 1. Controlled, Type 2 diabetes with A1c 6% 2. Blood glucose levels improved. According to [employer] cgm download 06/26/2021- 07/09/2021: Avg glucose 132. [...] (ICD-10 - L84) f/u with Dr. Limon [facility] Other 03-07-2022 Evaluation note* Encounter Date Diagnosis [...] apnea would also be evaluated if needed [facility] Other 01-10-2022 Evaluation note* Encounter Date Diagnosis [...] not at all interested in any vaccines. [facility] Other 12-14-2021 Evaluation note* Encounter Date Diagnosis Assessment Notes Treatment Notes Treatment Clinical Notes Mar, Type 2 diabetes mellitus with hy perglycemia (ICD-10 - E11.65) [facility] Other 12-06-2021 Evaluation note* Encounter Date Diagnosis [...] 2021Pain in left leg (ICD-10 - M79.605) [facility] Other 11-29-2021 Evaluation note* Encounter Date Diagnosis Assessment Notes Treatment Notes Treatment Clinical Notes Feb, Type 2 diabetes mellitus with hy perglycemia (ICD-10 - E11.65) Managing type 2 diabetes material was published 1. Controlled, Type 2 diabetes with A1c 6.9% 2. Blood glucose levels according to [employer] cgm download 03/14/2021-03/27/2021: Avg glucose 167. >250-5%, [...] eating on a budget material was published [facility] Other 11-01-2021 Evaluation note* Encounter Date Diagnosis [...] in her feet sounds neurologic in origin. [facility] Other Chief complaint+Reason for visit Narrative* Reason for Visit [id number] Dietary counseling and surveillance Hyperlipidemia Hypertension Insulin long-term use Peripheral neuropathy Type 2 diabetes mellitus Vitamin B 12 deficiency [facility] Work Phone: Consult note Author Walter [place] [facility] December 11, 2021 3:18pmNote Date/TimeAugust 2021 3:18pm[place] [address] General Surgery Consult Note Signed Patient: Taye Gay MR#: [id number] : 1955 Acct:[id number] Age/Sex: 66 / F Adm Date: 2 Loc: Room: [address] [place] [address] Type: ADM INOo Attending Dr: Arleen Stephen [...] 81 Mg Tablet.) 81 mg PO DAILY [facility] Stop: 12/10/22 08:59 Last Admin: 12/11/21 08:00 Dose: 81 mg Atorvastatin Calcium (Atorvastatin 10 Mg Tablet) 10 mg PO DAILY [facility] Stop: 12/10/22 08:59 Last Admin: 12/11/21 08:00 Dose: 10 mg Dextrose (Dextrose 50% In Water 25 Gm/50 Ml Syringe) 0 gm IV-PUSH PRN PRN PRN Reason: Hypoglycemia Stop: 12/09/22 11:18 Enoxaparin Sodium (Enoxaparin 40 Mg/0.4 Ml Syringe) 40 mg SUBCUT DAILY@10 [facility] Stop: 12/10/22 09:59 Last Admin: 12/11/21 [...] 50 mls @ 100 mls/hr IV Q24H [facility] Last Infusion: 12/11/21 10:15 Dose: Infused Insulin Aspart (Insulin Aspart 300 Units/3 Ml Insuln.Pen) 0 units SUBCUT TID.WM.HS [facility]; Protocol Stop: 12/09/22 11:59 Last Admin: 12/11/21 11:33 Dose: 3 units Nortriptyline HCl (Nortriptyline 25 Mg Capsule) 50 mg PO BID [facility] Stop: 12/09/22 20:59 Last Admin: 12/11/21 08:00 Dose: 50 mg Omeprazole (Omeprazole 20 Mg Capsule.Dr) 20 mg PO DAILY [facility] Stop: 12/10/22 08:59 Last Admin: 12/11/21 08:00 Dose: 20 mg Ondansetron HCl (Ondansetron 4 Mg/2 Ml Vial) 4 mg IV-PUSH Q8H PRN PRN Reason: Nausea And Vomiting Stop: 12/09/22 11:18 Pioglitazone HCl (Pioglitazone 15 Mg Tablet) 15 mg PO DAILY [facility] Stop: 12/10/22 08:59 Last Admin: 12/11/21 [...] % (Auto) 66.8, Lymph % (Auto) 21.0, [place] % (Auto) 9.2, Eos % (Auto) 2.6, Baso % (Auto) 0.4, Neut # (Auto) 4.1, Lymph # (Auto) 1.3, [place] # (Auto) 0.6, Eos# (Auto) 0.2, Baso # (Auto) 0.0, Nucleated RBC % (auto) 0.1 12/11/21 11:05: POC Glucose 195 12/11/21 06:58: POC Glucose 172 12/10/21 21:10: POC Glucose 249 12/10/21 16:18: POC Glucose 176 12/10/21 11:20: POC Glucose 268 12/10/21 06:50: PHA Creatinine Clear 75.03, Sodium 139, Potassium 4.0, Chloride 107, Carbon Vggpbhr76.2, BUN 8 L, Creatinine 0.86, Est GFR ( Amer) > 60,Est GFR (Non-Af Amer) > 60, Glucose 153 H, Calcium 8.8 12/10/21 06:50: Corrected WBC 7.4, Uncorrected WBC Count 7.4, RBC 4.38, Hgb 14.0, Hct 41.5, MCV 94.9, MCH 32.0, MCHC 33.7, RDW 13.1, Plt Count 141 L D, MPV 9.3, Neut % (Auto) 63.3, Lymph % (Auto) 24.1, [place] % (Auto) 10.5, Eos % (Auto) 1.8, Baso % (Auto) 0.3, Neut # (Auto) 4.7, Lymph # (Auto) 1.8, [place] # (Auto) 0.8, Eos # (Auto) 0.1, [...] Sodium 139, Potassium 3.9, Chloride 101, Carbon Pgsggqi84.4, BUN 8 L, Creatinine 0.81, Est GFR [...] % (Auto) 79.8, Lymph % (Auto) 9.6, [place] % (Auto) 9.1, Eos % (Auto)1.1, Baso % (Auto) 0.4, Neut # (Auto) 10.3 H, Lymph # (Auto) 1.2, [place] # (Auto) 1.2 H, Eos # (Auto) 0.1, Baso # (Auto) 0.1, Nucleated RBC % (auto) 0.0 12/09/21 08:35: Urine Color Yellow, Urine Appearance Cloudy A, Urine pH 5.5, Ur Specific [place] 1.030, Urine Protein Negative, Urine Glucose (UA) [...] <Electronically signed by DO Walter [place]> 12/11/21 6516 [facility] Work Phone: Consult note Author Teresa Strong [facility] December 11, 2021 9:25pmNote Date/TimeAugust 2021 8:10pmLouis [place] [id number] Urology Consult Note Signed Patient: Taye Gay MR#: [id number] : 1955 Acct:[id number] Age/Sex: 66 / F Adm Date: 2 Loc: Room: [address] [place] [address] Type: ADM INOo Attending Dr: Arleen Stephen [...] Neut % (Auto) 66.8, Lymph % (Auto) 21.0,[place] % (Auto) 9.2, Eos % (Auto) 2.6, Baso % (Auto) 0.4, Neut # (Auto) 4.1, Lymph # (Auto) 1.3, [place]# (Auto) 0.6, Eos # (Auto) 0.2, Baso # (Auto) 0.0, Nucleated RBC % (auto) 0.1 12/11/21 11:05: POC Glucose 195 12/11/21 06:58: POC Glucose 172 12/10/21 21:10: POC Glucose 249 12/10/21 16:18: POC Glucose 176 12/10/21 11:20: POC Glucose 268 12/10/21 06:50: PHA Creatinine Clear 75.03, Sodium 139, Potassium 4.0, Chloride 107, Carbon Nnhlrey07.2, BUN 8 L, Creatinine 0.86, Est GFR ( Amer) > 60,Est GFR (Non-Af Amer) > 60, Glucose 153 H, Calcium 8.8 12/10/21 06:50: Corrected WBC 7.4, Uncorrected WBC Count 7.4, RBC 4.38, Hgb 14.0, Hct 41.5, MCV 94.9, MCH 32.0, MCHC 33.7, RDW 13.1, Plt Count 141 L D, MPV 9.3, Neut % (Auto) 63.3, Lymph % (Auto) 24.1, [place] % (Auto) 10.5, Eos % (Auto) 1.8, Baso % (Auto) 0.3, Neut # (Auto) 4.7, Lymph # (Auto) 1.8, [place] # (Auto) 0.8, Eos # (Auto) 0.1, [...] <Electronically signed by Teresa Strong MD> 12/11/212124 [facility] Work Phone: Consult note Author Lit Clark [facility] Center[facility] Date/TimeJanuary 2024 11:07am [place] [id number] Neurology Consult Note Signed Patient: Taye Gay MR#: [id number] : 1955 Acct:[id number] Age/Sex: 68 / F Adm Date: 4 Loc: 3T Room: [address] [place] [address] Type: ADM IN Attending Dr: Priscilla Lang MD Copies to: DO Sandra Garrido DO Rafik Massouh, MD~ HPI Consult Date: 04/29/24 Manufacturing Electrician: Lit Clark DO Reason for consult: Slurred [...] negative unless noted below or in HPI [facility] Medical History BMI 32.0-32.9,adult Abnormal thyroid blood [...] (Stool Softener) 100 mg PO DAILY PRN trvrxihpslyc29/14/24 [History Confirmed 04/28/24] multivitamin 1 tab PO DAILY 06/12/23 [History Confirmed 04/28/24] pen needle, diabetic [Sure-Fine Pen [place]] 06/12/23 [History Confirmed 04/28/24] metformin 500 mg [...] Oz Bowling M.D.04/28/2024 9:46 PM Dictation Location: [place] [address] 04/28/24 19:44 IMPRESSION: No acute intracranial pathology. No evidence of focal stenosis, aneurysmal dilatation, dissection or occlusion. Impression dictated by: Oz Bowling M.D.04/28/2024 9:44 PM Dictation Location: [place] [address] Assessment/Plan (1) Atrial fibrillation: Qualifiers: Atrial fibrillation [...] may be metabolic in nature and not loss prevention representative necessarily of transient ischemia or of [...] follow. Documented By: Lit Clark DO [id number] Signed By: <Electronically signed by Lit Clark DO> 04/29/24 1100 [facility] Work Phone: Discharge summary Author Wilmer Vance [facility] December 13, 2021 1:58pmNote Date/TimeAugust 2021 1:58pm[place] [address] Discharge Summary Signed Patient: Taye Gay MR#: [id number] : 1955 Acct:[id number] Age/Sex: 66 / F Adm Date: 2 Loc: 3T Room: [address] [place] [address]: Wilmer Vance MD Copies to: [...] Sodium 137, Potassium 4.4, Chloride 105, Carbon Vtxognd55.6, BUN 12, Creatinine 0.75, Est GFR ( Amer) > 60, Est GFR (Non-Af Amer) > 60, TotalBilirubin 0.7, Direct Bilirubin 0.2, Indirect Bilirubin 0.5 12/13/21 05:58: Corrected WBC 9.4, Uncorrected WBC Count 9.4, RBC 4.41, Hgb 14.2, Hct 41.9, MCV 95.1, MCH 32.2, MCHC 33.9, RDW 12.9, Plt Count 178, MPV 9.3,Neut % (Auto) 90.4, Lymph % (Auto) 7.7, [place] % (Auto) 1.8, Eos % (Auto) 0.0, Baso % (Auto) 0.1, Neut # (Auto) 8.5 H, Lymph # (Auto) 0.7 L, [place]# (Auto) 0.2,Eos # (Auto) 0.0, Baso # [...] appointment Instructions: Cholecystectomy, Laparoscopic Surgery, Acetaminophen, Cefuroxime,[facility] Catheter Care [...] <Electronically signed by Wilmer Vance MD> 12/13/21 1894 [facility] Work Phone: Discharge summary Author Elva Florian [facility] September 15, 2023 1:17amNote Date/TimeMay 2023 2:20pm[place] [address] Discharge Summary Signed Patient: Taye Gay MR#: [id number] : 1955 Acct:[id number] Age/Sex: 67 / F Adm Date: 4 Loc: Room: [address] [place] [address]: Elva Florian MD Copies to: [...] .Route (DME) pen needle, diabetic [Sure-Fine Pen [place]] .Route (DME) FreeStyle Brent 14 Day Sensor [...] signed by Elva Florian MD> 09/15/23 0117 [facility] Work Phone: Discharge summary Author Priscilla Lang [facility] CenterNote Date/TimeJanuary 2024 10:28am [address] [place] [address] Discharge Summary Signed Patient: Taye Gay MR#: [id number] : 1955 Acct:[id number] Age/Sex: 68 / F Adm Date: 4 Loc: 3T Room: [address] [place] [address]: Priscilla Lang MD Copies to: [...] taking multiple medications that could potentially cause DRYWALL SPRAYER side effect and toxic encephalopathy. Diagnosis is [...] polypharmacy regimen to reduce her risk of DRYWALL SPRAYER side effects or drug?drug interaction.At this time, [...] ask her primary care doctor to obtain [facility] record entirely to address abnormalities seen [...] ask your primary care provider [facility] entirely to follow up on [...] or having drug?drug interaction. [facility]charging [facility] from [facility] does not mean that your medical [...] constipation) (DME) pen needle, diabetic [Sure-Fine Pen [place]] .Route lidocaine 5 % ointment 1 applic [...] % (Auto) 63.5, Lymph % (Auto) 24.9, [place] % (Auto) 8.3, Eos % (Auto) 2.9, Baso % (Auto) 0.4, Nucleat RBC Rel Count 0.0, Neut # (Auto) 4.6, Lymph # (Auto) 1.8, [place] # (Auto) 0.6, Eos # (Auto) 0.2, [...] signed by Priscilla Lang MD> 04/30/24 1028 [facility] Work Phone: evaluation noteNo [facility] DNA Guide Other Evaluation note* Diagnosis Onset Date Resolution Status Cholelithiasis acuteEmphysematous cystitisacutePyelonephritisacuteRight lateral abdominal pain acute [facility] Work Phone: evaluation noteNo assessment information available [facility] Work Phone: Evaluation note* Diagnosis Onset Date Resolution Status [id number] acuteDietary counseling and surveillanceacuteHyperlipidemiaacuteHypertension acuteInsulin long-term useacutePeripheral neuropathyacuteType 2 diabetes mellitusacuteVitamin B 12 deficiencyacute [facility] Work Phone: Evaluation note* Diagnosis Onset Date Resolution Status BMI 28.0-28.9,adult [id number] counseling and surveillanceacute HyperlipidemiaacuteHypertensionacuteInsulin long-term useacutePeripheral neuropathyacuteType 2 diabetes mellitusacuteVitamin B 12 deficiencyacute [facility] Work Phone: Evaluation note* Diagnosis Onset Date Resolution Status BMI 28.0-28.9,adult [id number] counseling and surveillanceacute HyperlipidemiaacuteHypertensionacuteInsulin long-term useacutePeripheral neuropathyacuteType 2 diabetes mellitusacuteVitamin B 12 deficiencyacute DizzinessacuteHypertensionacutePrimary insomniaacuteType 2 diabetes mellitus acute [facility] Work Phone: Evaluation note* Diagnosis Onset Date Resolution Status BMI 28.0-28.9,adult [id number] counseling and surveillanceacute HyperlipidemiaacuteHypertensionacuteInsulin long-term useacutePeripheral neuropathyacuteType 2 diabetes mellitusacuteVitamin B 12 deficiencyacute DizzinessacuteHypertensionacutePrimary insomniaacuteType 2 diabetes mellitus acutePAD (peripheral artery disease)[facility] Work Phone: Evaluation note* Diagnosis Onset Date Resolution Status PAD (peripheral artery disease) acuteBMI 28.0-28.9,mysxnferkcZIA-PMLT-[id number] counseling and surveillanceacuteHyperlipidemiaacuteHypertensionacutePeripheral neuropathyacute TachycardiaacuteType 2 diabetes mellitusacuteVitamin B 12 deficiencyacuteAtrial flutter with rapid ventricular responseacuteChest painacuteHyperlipidemiaacute HypertensionacuteNew onset atrial flutteracuteType 2 diabetes mellitusP[facility] Work Phone: Evaluation note* Diagnosis Onset Date Resolution Status PAD (peripheral artery disease) acuteBMI 28.0-28.9,ahunfgevmcRNI-RRLD-[id number] counseling and surveillanceacuteHyperlipidemiaacuteHypertensionacutePeripheral neuropathyacute TachycardiaacuteType 2 diabetes mellitusacuteVitamin B 12 deficiencyacuteAtrial flutter with rapid ventricular responseacuteChest painacuteHyperlipidemiaacute HypertensionacuteNew onset atrial flutteracuteType 2 diabetes mellitusacuteNew onset atrial flutteracuteMobility impairednoneactive [facility] Work Phone: Evaluation note* Diagnosis Typical atrial flutter (Multi) Nonischemic cardiomyopathy (Multi) Other primary cardiomyopathies Hypertension, unspecified type Hypercholesteremia Pure hypercholesterolemia Smoker Tobacco use disorder Type 2 diabetes mellitus with other specified complication, 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 insulin use (Multi) BMI 28.0-28.9,adult documented in this encounter [facility] Work Phone: Evaluation note* Diagnosis Onset Date Resolution Status BMI 28.0-28.9,adult [id number] counseling and surveillanceacute HyperlipidemiaacuteHypertensionacutePeripheral neuropathyacuteTachycardiaacute Type 2 diabetes mellitusacuteVitamin B 12 deficiencyacuteHyperlipidemiaacute HypertensionacuteNew onset atrial flutteracuteType 2 diabetes mellitusacute Atrial flutter with rapid ventricular responseresolvedChest painresolvedHospital discharge follow-upacuteNew onset atrial flutteracutePrimary insomniaacuteType 2 diabetes mellitusacuteMobility impairednoneactive [facility] Work Phone: Evaluation note* Diagnosis Onset Date Resolution Status BMI 28.0-28.9,adult kwvsnXGJ-[id number] counseling and surveillanceacute HyperlipidemiaacuteHypertensionacutePeripheral neuropathyacuteTachycardiaacute Type 2 diabetes mellitusacuteVitamin B 12 deficiencyacuteHyperlipidemiaacute HypertensionacuteNew onset atrial flutteracuteType 2 diabetes mellitusacute Atrial flutter with rapid ventricular responseresolvedChest painresolvedHospital discharge follow-upacuteNew onset atrial flutteracutePrimary insomniaacuteType 2 diabetes mellitusacuteMobility impairednoneactiveAmbulatory dysfunctionacute HypomagnesemiaacuteHypothyroidacuteType 2 diabetes mellitus with [facility]cemia [facility] Work [facility]: Evaluation note* Diagnosis Onset Date Resolution Status BMI 28.0-28.9,adult [id number] counseling and surveillanceacute HyperlipidemiaacuteHypertensionacutePeripheral neuropathyacuteTachycardiaacute Type 2 diabetes mellitusacuteVitamin B 12 deficiencyacuteHyperlipidemiaacute HypertensionacuteNew onset atrial flutteracuteType 2 diabetes mellitusacute Atrial flutter with rapid ventricular responseresolvedChest painresolvedHospital discharge follow-upacuteNew onset atrial flutteracutePrimary insomniaacuteType 2 diabetes mellitusacuteMobility impairednoneactiveAmbulatory dysfunctionacute HypomagnesemiaacuteHypothyroidacuteType 2 diabetes mellitus with hyperglycemia acuteVitamin B 12 deficiencyacuteWeakC[facility] Work Phone: Evaluation note* Diagnosis Onset Date Resolution Status BMI 28.0-28.9,adult hyggpPYM-[id number] counseling and surveillanceacute HyperlipidemiaacuteHypertensionacutePeripheral neuropathyacuteTachycardiaacute Type 2 diabetes mellitusacuteVitamin B 12 deficiencyacuteHyperlipidemiaacute HypertensionacuteNew onset atrial flutteracuteType 2 diabetes mellitusacute Atrial flutter with rapid ventricular responseresolvedChest painresolvedHospital discharge follow-upacuteNew onset atrial flutteracutePrimary insomniaacuteType 2 diabetes mellitusacuteMobility impairednoneactiveAmbulatory dysfunctionacute HypomagnesemiaacuteHypothyroidacuteType 2 diabetes mellitus with hyperglycemia acuteVitamin B 12 deficiencyacuteWeakwashington county memorial hospitalacuteBMI 28.0-28.9,adultacute CZG-[id number] counseling and surveillanceacuteHyperlipidemia acuteHypertensionacutePeripheral neuropathyacuteType 2 diabetes mellitusacute Vitamin B 12 deficiencyacute [facility] Work Phone: Evaluation note* Diagnosis Onset Date Resolution Status BMI 28.0-28.9,adult omjmkNVD-MOKF-[id number] counseling and surveillanceacute HyperlipidemiaacuteHypertensionacutePeripheral neuropathyacuteTachycardiaacute Type 2 diabetes mellitusacuteVitamin B 12 deficiencyacuteHyperlipidemiaacute HypertensionacuteNew onset atrial flutteracuteType 2 diabetes mellitusacute Atrial flutter with rapid ventricular responseresolvedChest painresolvedHospital discharge follow-upacuteNew onset atrial flutteracutePrimary insomniaacuteType 2 diabetes mellitusacuteMobility impairednoneactiveAmbulatory dysfunctionacute HypomagnesemiaacuteHypothyroidacuteType 2 diabetes mellitus with hyperglycemia acuteVitamin B 12 deficiencyacuteWeclearsky [facility]acuteAbnormal thyroid blood testacute BMI 28.0-28.9,ilgbxprfoyOEF-JNLA-[id number] counseling and surveillanceacuteHyperlipidemiaacuteHypertensionacutePeripheral neuropathyacute Type 2 diabetes mellitusacuteVitamin B 12 deficiency[facility] Work [facility]: Evaluation note* Diagnosis Onset Date Resolution Status BMI 28.0-28.9,adult luydjLDP-[id number] counseling and surveillanceacute HyperlipidemiaacuteHypertensionacutePeripheral neuropathyacuteTachycardiaacute Type 2 diabetes mellitusacuteVitamin B 12 deficiencyacuteHyperlipidemiaacute HypertensionacuteNew onset atrial flutteracuteType 2 diabetes mellitusacute Atrial flutter with rapid ventricular responseresolvedChest painresolvedHospital discharge follow-upacuteNew onset atrial flutteracutePrimary insomniaacuteType 2 diabetes mellitusacuteMobility impairednoneactiveAmbulatory dysfunctionacute HypomagnesemiaacuteHypothyroidacuteType 2 diabetes mellitus with hyperglycemia acuteVitamin B 12 deficiencyacuteWeaknessacuteAbnormal thyroid blood testacute BMI 28.0-28.9,ugnehmghgiEFV-FWZQ-[id number] counseling and surveillanceacuteHyperlipidemiaacuteHypertensionacutePeripheral neuropathyacute Type 2 diabetes mellitusacuteVitamin B 12 deficiencyacuteHospital discharge follow-upacuteHypomagnesemiaacute [facility] Work Phone: Evaluation note* Diagnosis Onset Date Resolution Status Ambulatory dysfunction acuteHypomagnesemiaacuteHypothyroidacuteType 2 diabetes mellitus with hyperglycemiaacuteVitamin B 12 deficiencyacuteWeaknessacuteAbnormal thyroid blood testacuteBMI 28.0-28.9,wkowhgkrehVZZ-JWTC-[id number] counseling and surveillanceacuteHyperlipidemiaacuteHypertensionacutePeripheral neuropathy acuteType 2 diabetes mellitusacuteVitamin B 12 deficiencyacuteHospital discharge follow-upacuteHypomagnesemiaacute [facility] Work Phone: Evaluation note* Diagnosis Ulcer of right foot, limited to breakdown of skin (CMS/HCC)- Primary Blister of right foot, subsequent encounter 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) [facility]* Diagnosis Onset Date Resolution Status Ambulatory dysfunction acuteHypomagnesemiaacuteHypothyroidacuteType 2 diabetes mellitus with hyperglycemiaacuteVitamin B 12 deficiencyacuteWeaknessacuteAbnormal thyroid blood testacuteBMI 28.0-28.9,kztzwttmjzIZI-SHIA-[id number] counseling and surveillanceacuteHyperlipidemiaacuteHypertensionacutePeripheral neuropathy acuteType 2 diabetes mellitusacuteVitamin B 12 deficiencyacuteHospital discharge follow-upacuteHypomagnesemiaacuteWeakwashington county memorial hospitalacute [facility] Work Phone: Evaluation [...] layer exposed (CMS/HCC) documented in this encounter [facility]Evaluation [facility]* Diagnosis Leg pain, bilateral- [...] syndrome B12 deficiency documented in this encounter [facility] HealthcareEvaluation note* Diagnosis Hypertension, unspecified type Typical atrial flutter (Multi) documented in this encounter [facility] Work Phone: Evaluation note* Diagnosis Lumbosacral radiculopathy at S1- Primary Neurogenic pain Cervical paraspinal muscle spasm Spasm of muscle Lumbar paraspinal muscle spasm Other symptoms referable to back Carpal tunnel syndrome, bilateral Carpal tunnel syndrome B12 deficiency documented in this encounter [facility] HealthcareEvaluation note* Diagnosis Nonischemic cardiomyopathy (Multi)- Primary Other primary cardiomyopathies Typical atrial flutter (Multi) Hypercholesteremia Pure hypercholesterolemia Primary hypertension Unspecified essential hypertension Current smoker BMI 28.0-28.9,adult High risk medication use documented in this encounter [facility] Work Phone: Evaluation note* Diagnosis Leg [...] foot (CMS/HCC) documented in this encounter [facility] HealthcareEvaluation note* Diagnosis High risk medication use- Primary Typical atrial flutter (Multi) Nonischemic cardiomyopathy (Multi) Other primary cardiomyopathies Hypercholesteremia Pure hypercholesterolemia BMI 28.0-28.9,adult BMI 30.0-30.9,adult Current smoker documented in this encounter [facility] Work Phone: Evaluation note* Diagnosis Carpal tunnel syndrome, bilateral- Primary Carpal tunnel syndrome documented in this encounter [facility] HealthcareEvaluation note* Diagnosis Ulcer of right foot, limited to breakdown of skin (CMS/HCC)- Primary Cellulitis of right foot documented in this encounter [facility] HealthcareEvaluation note* Diagnosis Ulcer of right foot, limited to breakdown of skin (CMS/HCC)- Primary Blister of right foot, initial encounter 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) documented in this encounter [facility] HealthcareEvaluation note* Diagnosis Typical atrial flutter (Multi)- Primary Nonischemic cardiomyopathy (Multi) Other primary cardiomyopathies Hypercholesteremia Pure hypercholesterolemia Hypertension, unspecified type BMI 32.0-32.9,adult Current smoker documented in this encounter [facility] Work Phone: Evaluation note* Diagnosis Leg [...] radiculopathy at L5 documented in this encounter [facility] HealthcareEvaluation note* Diagnosis Typical atrial flutter (Multi)- Primary Nonischemic cardiomyopathy (Multi) Other primary cardiomyopathies Hypertension, unspecified type Hypercholesteremia Pure hypercholesterolemia Obesity (BMI 30-39.9) Current smoker documented in this encounter [facility] Work Phone: Evaluation note* Diagnosis Leg [...] physical note Author Arleen Stephen [facility] December 09, 2021 11:38amNote Date/TimeAugust 2021 11:38[place] [address] Hospitalist H&P Signed Patient: Taye Gay MR#: [id number] : 1955 Acct:[id number] Age/Sex: 66 / F Adm Date: 2 Loc: ER Room: Type: [facility] ER Attending Dr: Copies to: NON [...] % (Auto) 9.6 % (.) 12/09/21 08:50 [place] % (Auto) 9.1 % (.) 12/09/21 08:50 Eos % (Auto) 1.1 % (.) 12/09/21 08:50 Baso % (Auto) 0.4 % (.) 12/09/21 08:50 Neut # (Auto) 10.3 x10E3/uL (1.8-7.7) H 12/09/21 08:50 Lymph # (Auto) 1.2 x10E3/uL (1.00-4.8) 12/09/21 08:50 [place] # (Auto) 1.2 x10E3/uL (0.0-0.8) H 12/09/21 [...] pH 5.5 (5.0-9.0) 12/09/21 08:35 Ur Specific Weed 1.030 (1.001-1.030) 12/09/21 08:35 Urine Protein Negative [...] signed by Arleen Stephen MD> 12/09/21 1138 [facility] Work Phone: History and physical note Author Jluis Campos [facility] November 10, 2023 6:20amNote Date/TimeJuly 2023 6:11am[place] [id number] Hospitalist H&P Signed Patient: Taye Gay MR#: [id number] : 1955 Acct:[id number] Age/Sex: 67 / F Adm Date: 4 Loc: 4N Room: 3T2823-2 Type: ADM IN Attending Dr: Jluis Campos [...] negative unless noted below or in HPI [facility] Medical History History of esophageal stricture BMI [...] Confirmed 11/09/23] pen needle, diabetic [Sure-Fine Pen [place]] 06/12/23 [History Confirmed 11/09/23] omeprazole 20 mg [...] weaknesses were noted, patient unable to ambulate. Esdl-lx-axur test was normal. No tremors or ataxia with zmjpap-ub-wayl movements. Neuro: AOx3, CN II-VII intact. Moves [...] % (Auto) 26.0 % (.) 11/10/23 03:41 [place] % (Auto) 8.2 % (.) 11/10/23 03:41 Eos % (Auto) 3.7 % (.) 11/10/23 03:41 Baso % (Auto) 0.9 % (.) 11/10/23 03:41 Nucleat RBC Rel Count 0.1 /100 WBC (0-0.5) 11/10/23 03:41 Neut # (Auto) 5.2 x10E3/uL (1.8-7.7) 11/10/23 03:41 Lymph # (Auto) 2.2 x10E3/uL (1.00-4.8) 11/10/23 03:41 [place] # (Auto) 0.7 x10E3/uL (0.0-0.8) 11/10/23 03:41 [...] pH 6.0 (5.0-9.0) 11/10/23 05:02 Ur Specific [place] 1.007 (1.001-1.030) 11/10/23 05:02 Urine Protein Negative [...] signed by Jluis Campos DO> 11/10/23 0620 [facility] Work Phone: History and physical note Author Jori Hearn [facility] CenterNote Date/TimeJanuary 2024 6:39[place] [address] Hospitalist H&P Signed Patient: Taye Gay MR#: [id number] : 1955 Acct:[id number] Age/Sex: 68 / F Adm Date: 4 Loc: Room: [address] [place] [address] Type: ADM IN Attending Dr: Jori Hearn [...] presence of WBCs, RBCs and rare yeast. Evyjaqueilne provided 3 to24 mg of aspirin x [...] of dementia, possible Alzheimer's dementia -continue home fiwmirvnw76 mg twice daily and donepezil 20 mg daily 12. Atrial fibrillation - continue Eliquis 5 mg twice daily for anticoagulationand carvedilol 12.5 mg twice daily. EKG in ER shows NSR 13. Hypoxia - no respiratory distress or cardiopulmonary complaints to accompany this. Will monitortelemetry and address as needed [facility] Medical History BMI 32.0-32.9,adult Abnormal thyroid blood [...] (Stool Softener) 100 mg PO DAILY PRN iagiqckjusfe30/14/24 [History Confirmed 04/28/24] multivitamin 1 tab PO DAILY 06/12/23 [History Confirmed 04/28/24] pen needle, diabetic [Sure-Fine Pen [place]] 06/12/23 [History Confirmed 04/28/24] metformin 500 mg [...] % (Auto) 24.6 % (.) 04/28/24 19:54 [place] % (Auto) 7.6 % (.) 04/28/24 19:54 Eos % (Auto) 2.7 % (.) 04/28/24 19:54 Baso % (Auto) 1.1 % (.) 04/28/24 19:54 Nucleat RBC Rel Count 0.2 /100 WBC (0-0.5) 04/28/24 19:54 Neut # (Auto) 6.5 x10E3/uL (1.8-7.7) 04/28/24 19:54 Lymph # (Auto) 2.5 x10E3/uL (1.00-4.8) 04/28/24 19:54 [place] # (Auto) 0.8 x10E3/uL (0.0-0.8) 04/28/24 19:54 [...] pH 5.5 (5.0-9.0) 04/28/24 22:02 Ur Specific [place] 1.038 (1.001-1.030) H 04/28/24 22:02 Urine Protein [...] signed by Jori Hearn DO> 04/29/24 0639 [facility] Work Phone: History and physical note Author Manjit Gleason [facility] CenterNote Date/TimeMay 2024 12:41pm[place] [address] Gastroenterology H&P Signed Patient: Taye Gay MR#: [id number] : 1955 Acct:[id number] Age/Sex: 68 / F Adm Date: 5 Loc: Room: Type: [facility] Attending Dr: Manjit Gleason MD Copies [...] signed by Manjit Gleason MD> 09/10/24 1241 [facility] Work Phone: Hismdic general Narrative - Reported* Type Description Date Medical History HTN Medical HistoryDiabetesMedical HistoryObesityMedical HistoryHLPMedical History tonsillectomyMedical HistoryhysterectomyMedical HistoryCataracts removed BilateralMedical HistoryUpper eye liftSurgical HistorytonsillectomySurgical HistoryhysterectomySurgical Historycataracts, bilaterallySurgical Historyeye lid surgerySurgical Historyremoved cervix12/2018 [facility] Other History general Narrative - Reported* Type Description Date Medical History HTN Medical HistoryDiabetesMedical HistoryObesityMedical HistoryHLPMedical History tonsillectomyMedical HistoryhysterectomyMedical HistoryCataracts removed BilateralMedical HistoryUpper eye liftSurgical HistorytonsillectomySurgical HistoryhysterectomySurgical Historycataracts, bilaterallySurgical Historyeye lid surgerySurgical Historyremoved cervix2019Hospitalization HistorySee Above [facility] Other History general Narrative - Reported* Type Description Date Medical History HTN Medical HistoryDiabetesMedical HistoryObesityMedical HistoryHLPMedical History tonsillectomyMedical HistoryhysterectomyMedical HistoryCataracts removed BilateralMedical HistoryUpper eye liftSurgical HistorytonsillectomySurgical Historypartial hysterectomySurgical Historycataracts, bilaterallySurgical Historyeye lid surgery--bilateralSurgical Historyremoved cervix12/2018 Hospitalization HistorySee Above [facility] Other History general Narrative - Reported* Type Description Date Medical History HTN Medical HistoryDiabetesMedical HistoryObesityMedical HistoryHLPMedical History tonsillectomyMedical HistoryhysterectomyMedical HistoryCataracts removed BilateralMedical HistoryUpper eye liftSurgical HistorytonsillectomySurgical Historypartial hysterectomySurgical Historycataracts, bilaterallySurgical Historyeye lid surgery--bilateralSurgical Historyremoved cervix12/2018Surgical HistoryCholecystectomyurgical HistoryLeft foot and great toe surgery 12/29/2021Hospitalization HistorySee AboveHospitalization HistoryUTI and gallbladder removal11/2021 [facility] Other Hissgjf general Narrative - Reported* Type Description Date Medical History HTN Medical HistoryDiabetesMedical HistoryObesityMedical HistoryHLPMedical History tonsillectomyMedical HistoryhysterectomyMedical HistoryCataracts removed BilateralMedical HistoryUpper eye liftSurgical HistorytonsillectomySurgical Historypartial hysterectomySurgical Historycataracts, bilaterallySurgical Historyeye lid surgery--bilateralSurgical Historyremoved cervix12/2018Surgical HistoryCholecystectomy12/12/21Surgical HistoryLeft foot and great toe surgery 12/29/2021Hospitalization HistorySee AboveHospitalization HistoryUTI and gallbladder removal11/2021 [facility] Other [facility] Work [facility]: [facility] Dis[facility] instructions[facility] Work Phone: [facility] Work Phone: [facility] Dis[facility] Work Phone: [facility] Discharge instructionsAmbulatory Orders* Initiate Home [...] - Care to be managed by PCP [facility] Work Phone: Hospital Discharge instructions Additional Instructions I may not have addressed or treated all of your medical illnesses or the abnormal blood work or imaging studies during this hospitalization. Please ask your primary care provider to [facility] entirely to follow up on [...] having drug drug interaction. Dis[facility]ing [facility] from [facility] does not mean that your medical care ends here and now. You may still need additional monitoring, work up, investigation, and treatment plan to be handled from this point on by out patient providers including your primary care provider and specialists. For any medication question, please contact your retail pharmacist or your primary care provider. Thank you.[facility] Work Phone: Hospital Discharge instructionsAmbulatory Orders* Referral to Pain Management Location: None Selected [facility] Work Phone: Progress note Author Arleen Stephen [facility] December 10, 2021 11:26amNote Date/TimeAugust 2021 11:26[place] [id number] Hospitalist Progress Note Signed Patient: Taye Gay MR#: [id number] : 1955 Acct:[id number] Age/Sex: 66 / F Adm Date: 2 Loc: Room: [address] [place] [address] Type: ADM IN Attending Dr: Arleen Stpehen MD Copies to: ~ Date of Service: [...] 1,000 Ml IV 12/09/22 11:29 75 mls/hr .[id number] [place] Administration Ceftriaxone Sodium 1 gm in [...] Capsule. PO 12/10/22 08:59 20 mg DAILY APRIS Administration Ondansetron HCl 4 mg 12/09/21 11:19 [...] <Electronically signed by Arleen Stephen MD> 12/10/211125 [facility] Work Phone: Progress note Author Arleen Stephen [facility] December 11, 2021 1:33pmNote Date/TimeAugust 2021 1:30pm[place] [address] Hospitalist Progress Note Signed Patient: Taye Gay MR#: [id number] : 1955 Acct:[id number] Age/Sex: 66 / F Adm Date: 2 Loc: Room: [address] [place] [address] Type: ADM INOo Attending Dr: Arleen Stephen [...] signed by Arleen Stephen MD> 12/11/21 1333 [facility] Work Phone: Progress note Author Walter Strongkarlos [facility] December 12, 2021 8:07amNote Date/TimeAugust 2021 8:07[place] [address] General Surgery Progress Note Signed Patient: Taye Gay MR#: [id number] : 1955 Acct:[id number] Age/Sex: 66 / F Adm Date: 2 Loc: Room: [address] [place] [address] Type: ADM INOo Attending Dr: Arleen Stephen [...] 12/09/21] insulin lispro 100 unit/mL [facility] pen [facility] Insulin lispro) 1 sliding [...] 81 Mg Tablet.Dr) 81 mg PO DAILY [facility] Stop: 12/10/22 08:59 Last Admin: 12/11/21 08:00 Dose: 81 mg Atorvastatin Calcium (Atorvastatin 10 Mg Tablet) 10 mg PO DAILY [facility] Stop: 12/10/22 08:59 Last Admin: 12/11/21 08:00 Dose: 10 mg Dextrose (Dextrose 50% In Water 25 Gm/50 Ml Syringe) 0 gm IV-PUSH PRN PRN PRN Reason: Hypoglycemia Stop: 12/09/22 11:18 Enoxaparin Sodium (Enoxaparin 40 Mg/0.4 Ml Syringe) 40 mg SUBCUT DAILY@10 [facility] Stop: 12/10/22 09:59 Last Admin: 12/11/21 [...] 50 mls @ 100 mls/hr IV Q24H [facility] Last Infusion: 12/11/21 10:15 Dose: Infused Sodium Chloride (0.9% Sodium Chloride 1,000 Ml) 1,000 mls @ 100 mls/hr IV .[id number] Stop: 12/12/22 00:00 Last Admin: 12/12/21 00:10 Dose: 100 mls/hr Insulin Aspart (Insulin Aspart 300 Units/3 Ml Insuln.Pen) 0 units SUBCUT TID.[facility]; Protocol Stop: 12/09/22 11:59 Last Admin: 12/11/21 21:21 Dose: 3 units Nortriptyline HCl (Nortriptyline 25 Mg Capsule) 50 mg PO BID [facility] Stop: 12/09/22 20:59 Last Admin: 12/11/21 21:20 Dose: 50 mg Omeprazole (Omeprazole 20 Mg Capsule.Dr) 20 mg PO DAILY [facility] Stop: 12/10/22 08:59 Last Admin: 12/11/21 08:00 Dose: 20 mg Ondansetron HCl (Ondansetron 4 Mg/2 Ml Vial) 4 mg IV-PUSH Q8H PRN PRN Reason: Nausea And Vomiting Stop: 12/09/22 11:18 Pioglitazone HCl (Pioglitazone 15 Mg Tablet) 15 mg PO DAILY [facility] Stop: 12/10/22 08:59 Last Admin: 12/11/21 [...] 15 Mg Capsule) 30 mg PO QHS [facility] Stop: 12/09/22 21:59 Last Admin: 12/11/21 [...] Neut % (Auto) 66.8, Lymph % (Auto) 21.0,[place] % (Auto) 9.2, Eos % (Auto) 2.6, Baso % (Auto) 0.4, Neut # (Auto) 4.1, Lymph # (Auto) 1.3, [place]# (Auto) 0.6, Eos # (Auto) 0.2, Baso # (Auto) 0.0, Nucleated RBC % (auto) 0.1 12/11/21 11:05: POC Glucose 195 12/11/21 06:58: POC Glucose 172 12/10/21 21:10: POC Glucose 249 12/10/21 16:18: POC Glucose 176 12/10/21 11:20: POC Glucose 268 12/10/21 06:50: PHA Creatinine Clear 75.03, Sodium 139, Potassium 4.0, Chloride 107, Carbon Yphucvi50.2, BUN 8 L, Creatinine 0.86, Est GFR [...] <Electronically signed by DO Walter [place]> 12/12/[address] [place] [address] Work Phone: Progress note Author Arleen Stephen [facility] December 12, 2021 1:20pmNote Date/TimeAugust 2021 1:20pm[place] [address] Hospitalist Progress Note Signed Patient: Taye Gay MR#: [id number] : 1955 Acct:[id number] Age/Sex: 66 / F Adm Date: 2 Loc: Room: [address] [place] [address] Type: ADM INOo Attending Dr: Arleen Stephen [...] Tablet PO 12/10/22 08:59 Not Given DAILY [facility] Potassium Chloride 40 meq 12/09/21 11:19 [...] signed by Arleen Stephen MD> 12/12/21 1320 [facility] Work Phone: Progress note Author Teresa guerline [facility] December 12, 2021 8:43pmNote Date/TimeAugust 2021 2:49pm[place] [address] Urology Progress Note Signed Patient: Taye Gay MR#: [id number] : 1955 Acct:[id number] Age/Sex: 66 / F Adm Date: 2 Loc: Room: [address] [place] [address] Type: ADM INOo Attending Dr: Arleen Stephen [...] Sodium 136, Potassium 3.8, Chloride 103, Carbon Nriewwk35.5, BUN 5 L, Creatinine 0.76, Est GFR [...] % (Auto) 72.7, Lymph % (Auto) 16.1, [place] % (Auto) 8.8, Eos % (Auto) 2.1, Baso % (Auto) 0.3, Neut # (Auto) 5.3, Lymph # (Auto) 1.2, [place] # (Auto) 0.6, Eos# (Auto) 0.2, Baso [...] Neut % (Auto) 66.8, Lymph % (Auto) 21.0,[place] % (Auto) 9.2, Eos % (Auto) 2.6, Baso % (Auto) 0.4, Neut # (Auto) 4.1, Lymph # (Auto) 1.3, [place]# (Auto) 0.6, Eos # (Auto) 0.2, Baso [...] <Electronically signed by Teresa Strong MD> 12/12/212042 [facility] Work Phone: Progress note Author Walter Strongkarlos [facility] December 13, 2021 8:52amNote Date/TimeAugust 2021 8:52am[place] [address] General Surgery Progress Note Signed Patient: Taye Gay MR#: [id number] : 1955 Acct:[id number] Age/Sex: 66 / F Adm Date: 2 Loc: Room: [address] [place] [address] Type: ADM INOo Attending Dr: Wilmer Vance [...] 12/09/21] insulin lispro 100 unit/mL [facility] Insulin lispro) 1 sliding [...] 81 Mg Tablet.Dr) 81 mg PO DAILY [facility] Stop: 12/10/22 08:59 Last Admin: 12/12/21 10:33 Dose: Not Given Atorvastatin Calcium (Atorvastatin 10 Mg Tablet) 10 mg PO DAILY [facility] Stop: 12/10/22 08:59 Last Admin: 12/12/21 10:33 Dose: Not Given Cyanocobalamin (Cyanocobalamin 1,000 Mcg Tablet) 1,000 mcg PO DAILY [facility] Stop: 12/13/22 08:59 Dextrose (Dextrose 50% In Water 25 Gm/50 Ml Syringe) 0 gm IV-PUSH PRN PRN PRN Reason: Hypoglycemia Stop: 12/09/22 11:18 Docusate Sodium (Docusate 100 Mg Capsule) 100 mg PO TID [facility] Stop: 12/12/22 21:59 Last Admin: 12/12/21 [...] 50 mls @ 100 mls/hr IV Q24H [facility] Last Admin: 12/12/21 11:57 Dose: 100 mls/hr Sodium Chloride (0.9% Sodium Chloride 1,000 Ml) 1,000 mls @ 100 mls/hr IV .[id number] Stop: 12/12/22 00:00 Last Infusion: 12/13/21 03:35 [...] 25 Mg Capsule) 50 mg PO BID [facility] Stop: 12/09/22 20:59 Last Admin: 12/12/21 22:27 Dose: 50 mg Omeprazole (Omeprazole 20 Mg Capsule.Dr) 20 mg PO DAILY [facility] Stop: 12/10/22 08:59 Last Admin: 12/12/21 10:33 Dose: Not Given Ondansetron HCl (Ondansetron 4 Mg/2 Ml Vial) 4 mg IV-PUSH Q6H PRN PRN Reason: Nausea And Vomiting Stop: 12/12/22 18:19 Pioglitazone HCl (Pioglitazone 15 Mg Tablet) 15 mg PO DAILY [facility] Stop: 12/10/22 08:59 Last Admin: 12/12/21 [...] 15 Mg Capsule) 30 mg PO QHS [facility] Stop: 12/09/22 21:59 Last Admin: 12/12/21 [...] Sodium 137, Potassium 4.4, Chloride 105, Carbon Uqlnyim44.6, BUN 12, Creatinine 0.75, Est GFR ( Amer) > 60, Est GFR (Non-Af Amer) > 60, TotalBilirubin 0.7, Direct Bilirubin 0.2, Indirect Bilirubin 0.5 12/13/21 05:58: Corrected WBC 9.4, Uncorrected WBC Count 9.4, RBC 4.41, Hgb 14.2, Hct 41.9, MCV 95.1, MCH 32.2, MCHC 33.9, RDW 12.9, Plt Count 178, MPV 9.3,Neut % (Auto) 90.4, Lymph % (Auto) 7.7, [place] % (Auto) 1.8, Eos % (Auto) 0.0, Baso % (Auto) 0.1, Neut # (Auto) 8.5 H, Lymph # (Auto) 0.7 L, [place]# (Auto) 0.2, Eos # (Auto) 0.0, Baso # (Auto) 0.0, Nucleated RBC % (auto) 0.0 12/12/21 20:42: POC Glucose 214 12/12/21 18:25: POC Glucose 178 12/12/21 15:26: POC Glucose 133 12/12/21 11:48: POC Glucose 167 12/12/21 07:47: PHA Creatinine Clear 83.77, Sodium 136, Potassium 3.8, Chloride 103, Carbon Vdavsuc39.5, BUN 5 L, Creatinine 0.76, Est GFR [...] % (Auto) 72.7, Lymph % (Auto) 16.1, [place] % (Auto) 8.8, Eos % (Auto) 2.1, Baso % (Auto) 0.3, Neut # (Auto) 5.3, Lymph # (Auto) 1.2, [place] # (Auto) 0.6, Eos# (Auto) 0.2, Baso [...] Neut % (Auto) 66.8, Lymph % (Auto) 21.0,[place] % (Auto) 9.2, Eos % (Auto) 2.6, Baso % (Auto) 0.4, Neut # (Auto) 4.1, Lymph # (Auto) 1.3, [place]# (Auto) 0.6, Eos # (Auto) 0.2, Baso [...] signed by DO Walter Montgomery> 12/13/21 0852 [facility] Work Phone: Progress note Author Priscilla Lang [facility] CenterNote Date/TimeJanuary 2024 11:02am [place] [address] Hospitalist Progress Note Signed Patient: Taye Gay MR#: [id number] : 1955 Acct:[id number] Age/Sex: 68 / F Adm Date: 4 Loc: 3T Room: [address] [place] [address] Type: ADM IN Attending Dr: Priscilla Lang [...] of dementia, possible Alzheimer's dementia -continue home xmpromygz31 mg twice daily and donepezil 20 mg [...] signed by Priscilla Lang MD> 04/29/24 1102 [facility] Work Phone: Progress note Author Lit Clark [facility] CenterNote Date/TimeJanuary 2024 12:30pm [place] [address] Neurology Progress Note Signed with Jamila Patient: Taye Gay MR#: [id number] : 1955 Acct:[id number] Age/Sex: 68 / F Adm Date: 4 Loc: Room: 7L3190-4 Type: ADM IN Attending Dr: Priscilla Lang MD Copies to: ~ ADDENDUM1 Patient has refused to remove her nail albanian for MRI. Unable to confirm whether or [...] may be metabolic in nature and not loss prevention representative necessarily of transient ischemia or of [...] signed by Lit Clark DO> 04/30/24 0708 [facility] Work Phone: Rezjxz for referral (narrative)No reason for referral information availableWooster Community [facility] Work Phone: Reason for visit Narrative* Other Medical (Routine) - ClosedSpecialtyDiagnoses / ProceduresReferred By ContactReferred To Contact Neurology Diagnoses Numbness Leg pain, left Leg pain, right Bilateral leg weakness Procedures EMG AND NERVE CONDUCTION STUDY Oz Kincaid MD [address] [place] [address] Phone: tel: fax: Oz Kincaid MD [address] [place] [address] Phone: tel: fax: Referral IDStatusReasonStart DateExpiration DateVisits RequestedVisits [id number] Perform Procedure / [facility] Narrative* Other Medical (Routine) - Closed SpecialtyDiagnoses / ProceduresReferred By ContactReferred To ContactNeurology Diagnoses Arm weakness Numbness Arm pain, right Arm pain, left Procedures EMG AND NERVE CONDUCTION STUDY Oz Kincaid MD [address] [place] [address] Phone: tel: fax: Oz Kincadi MD [address] [address] Phone: tel: fax: Referral IDStatusReasonStart DateExpiration DateVisits RequestedVisits [id number] Perform Procedure / [facility] Healthcare Summary Purpose Family History No Family [...] December 4:05pm Procedure Findings Note HNO ID: [id number] Author: Phi aidyefri Joaquin Service: Gynecology Oncology Author Type: Physician Type: Brief Op Note Filed: 01/17/2019 7:15 PM Note Text: BRIEF OPERATIVE / PROCEDURE NOTE LOG ID: [id number] SURGERY/PROCEDURE DATE: 01/01/2019 INCISION/PROCEDURE START TIME: 8:11 AM INCISION CLOSE/PROCEDURE END TIME: 8:34 AM SURGEON(S)/PROCEDURALIST(S) AND SPECIAL PROGRAMS DIRECTOR(S): Surgeon(s) and Role: * Theo Joaquin - [...] 01, 2019 TIME: 8:39 AM PAGER/CONTACT #: [id number] Chief Complaint and Reason for Visit Chief Complaint right side pain Low R abd painReason for VisitCholelithiasis Emphysematous cystitis Pyelonephritis Right lateral abdominal pain Chief Complaint g02.97 f17.210 Chief Complaint g02.97 f17.210 Z12.39 Chief Complaint E11.4 Z78.0 Chief Complaint 3 month follow up Reason for Visit BMI 28.0-28.9,adult [id number] Dietary counseling and surveillance Hyperlipidemia Hypertension Insulin long-term use Peripheral neuropathy Type 2 diabetes mellitus Vitamin B 12 deficiency Chief Complaint 3 month follow up PVD FOLLOW UPReason for VisitBMI 28.0-28.9,adult [id number] Dietary counseling and surveillance Hyperlipidemia Hypertension Insulin long-term use Peripheral neuropathy Type 2 diabetes mellitus Vitamin B 12 deficiency Dizziness Hypertension Primary insomnia Type 2 diabetes mellitus Chief Complaint 3 month follow up PVD FOLLOW UP g02.97 f17.210Reason for VisitBMI 28.0-28.9,adult [id number] Dietary counseling and surveillance Hyperlipidemia Hypertension Insulin long-term use Peripheral neuropathy Type 2 diabetes mellitus Vitamin B 12 deficiency Dizziness Hypertension Primary insomnia Type 2 diabetes mellitus PAD (peripheral artery disease) Chief Complaint 3 month follow up PVD FOLLOW UP g02.97 f17.210 E11.9 E78.5 E53.8Reason for VisitBMI 28.0-28.9,adult [id number] Dietary counseling and surveillance Hyperlipidemia Hypertension Insulin long-term use Peripheral neuropathy Type 2 diabetes mellitus Vitamin B 12 deficiency Dizziness Hypertension Primary insomnia Type 2 diabetes mellitus PAD (peripheral artery disease) Chief Complaint PVD FOLLOW UP g02.97 f17.210 E11.9 E78.5 E53.8 Amb Documentation brent on phone chest pains chest painsReason for VisitPAD (peripheral artery disease) BMI 28.0-28.9,adult [id number] Dietary counseling and surveillance Hyperlipidemia Hypertension Peripheral [...] for VisitPAD (peripheral artery disease) BMI 28.0-28.9,adult [id number] Dietary counseling and surveillance Hyperlipidemia Hypertension Peripheral [...] z11.3 e53.1 i70.91 d51.3Reason for VisitBMI 28.0-28.9,adult [id number] Dietary counseling and surveillance Hyperlipidemia Hypertension Peripheral [...] e53.1 i70.91 d51.3 aflutterReason for VisitBMI 28.0-28.9,adult [id number] Dietary counseling and surveillance Hyperlipidemia Hypertension Peripheral [...] aflutter Multiple [place], ShakyReason for VisitBMI 28.0-28.9,adult [id number] Dietary counseling and surveillance Hyperlipidemia Hypertension Peripheral [...] aflutter [place], ShakyReason for VisitBMI 28.0-28.9,adult [id number] Dietary counseling and surveillance Hyperlipidemia Hypertension Peripheral [...] Documentation brent on phoneReason for VisitBMI 28.0-28.9,adult [id number] Dietary counseling and surveillance Hyperlipidemia Hypertension Peripheral [...] Vitamin B 12 deficiency Weakness BMI 28.0-28.9,adult [id number] Dietary counseling and surveillance Hyperlipidemia Hypertension Peripheral neuropathy Type 2 diabetes mellitus Vitamin B 12 deficiency Chief Complaint E11.9 E78.5 E53.8 Amb Documentation brent on phone chest pains chest pains Amb Documentation Hospital follow up g72.9 g62.9 r79.89 g60.9 z11.3 e53.1 i70.91 d51.3 aflutter [place], Shaky Amb Documentation brent on phone typical a flutterReason for VisitBMI 28.0-28.9,adult [id number] Dietary counseling and surveillance Hyperlipidemia Hypertension Peripheral [...] Weakness Abnormal thyroid blood test BMI 28.0-28.9,adult [id number] Dietary counseling and surveillance Hyperlipidemia Hypertension Peripheral neuropathy Type 2 diabetes mellitus Vitamin B 12 deficiency Chief Complaint E11.9 E78.5 E53.8 Amb Documentation brent on phone chest pains chest pains Amb Documentation Hospital follow up g72.9 g62.9 r79.89 g60.9 z11.3 e53.1 i70.91 d51.3 aflutter [place], Shaky Amb Documentation brent on phone typical a flutter typical a flutter [facility] follow upReason for VisitBMI 28.0-28.9,adult [id number] Dietary counseling and surveillance Hyperlipidemia Hypertension Peripheral [...] Weakness Abnormal thyroid blood test BMI 28.0-28.9,adult [id number] Dietary counseling and surveillance Hyperlipidemia Hypertension Peripheral neuropathy Type 2 diabetes mellitus Vitamin B 12 deficiency Hospital discharge follow-up Hypomagnesemia Chief Complaint E11.9 E78.5 E53.8 Amb Documentation brent on phone chest pains chest pains Amb Documentation Hospital follow up g72.9 g62.9 r79.89 g60.9 z11.3 e53.1 i70.91 d51.3 aflutter [place], [place]aky Amb Documentation brent on phone typical a flutter typical a flutter [facility] follow up G62.9 G60.9 R79.89 Z11.3 E53.1 I70.31 D51.3Reason for VisitBMI 28.0-28.9,adult [id number] Dietary counseling and surveillance Hyperlipidemia Hypertension Peripheral [...] Weakness Abnormal thyroid blood test BMI 28.0-28.9,adult [id number] Dietary counseling and surveillance Hyperlipidemia Hypertension Peripheral neuropathy Type 2 diabetes mellitus Vitamin B 12 deficiency Hospital discharge follow-up Hypomagnesemia Chief Complaint E11.9 E78.5 E53.8 Amb Documentation brent on phone chest pains chest pains Amb Documentation Hospital follow up g72.9 g62.9 r79.89 g60.9 z11.3 e53.1 i70.91 d51.3 aflutter [place], [place]aky Amb Documentation brent on phone typical a flutter typical a flutter [facility] follow up G62.9 G60.9 R79.89 Z11.3 E53.1 I70.31 D51.3 g62.9 r79.89 g60.9 z11.3 e53.1 d51.3Reason for VisitBMI 28.0-28.9,adult [id number] Dietary counseling and surveillance Hyperlipidemia Hypertension Peripheral [...] Weakness Abnormal thyroid blood test BMI 28.0-28.9,adult [id number] Dietary counseling and surveillance Hyperlipidemia Hypertension Peripheral neuropathy Type 2 diabetes mellitus Vitamin B 12 deficiency Hospital discharge follow-up Hypomagnesemia Chief Complaint g72.9 g62.9 r79.89 g 60.9 z11.3 e53.1 i70.91 d51.3 aflutter [place], [place]aky Amb Documentation brent on phone typical a flutter typical a flutter [facility] follow up G62.9 G60.9 R79.89 Z11.3 E53.1 I70.31 D51.3 g62.9 r79.89 g60.9 z11.3 e53.1 d51.3 M54.17Reason for VisitAmbulatory dysfunction Hypomagnesemia Hypothyroid Type 2 diabetes mellitus with hyperglycemia Vitamin B 12 deficiency Weakness Abnormal thyroid blood test BMI 28.0-28.9,adult [id number] Dietary counseling and surveillance Hyperlipidemia Hypertension Peripheral neuropathy Type 2 diabetes mellitus Vitamin B 12 deficiency Hospital discharge follow-up Hypomagnesemia Chief Complaint g72.9 g62.9 r79.89 g 60.9 z11.3 e53.1 i70.91 d51.3 aflutter [place], Shaky Amb Documentation brent on phone typical a flutter typical a flutter [facility] follow up G62.9 G60.9 R79.89 Z11.3 E53.1 I70.31 D51.3 g62.9 r79.89 g60.9 z11.3 e53.1 d51.3 M54.17 R60.0 M79.671 r/o dvtReason for VisitAmbulatory dysfunction Hypomagnesemia Hypothyroid Type 2 diabetes mellitus with hyperglycemia Vitamin B 12 deficiency Weakness Abnormal thyroid blood test BMI 28.0-28.9,adult [id number] Dietary counseling and surveillance Hyperlipidemia Hypertension Peripheral neuropathy Type 2 diabetes mellitus Vitamin B 12 deficiency Hospital discharge follow-up Hypomagnesemia Chief Complaint g72.9 g62.9 r79.89 g 60.9 z11.3 e53.1 i70.91 d51.3 aflutter [place], Shaky Amb Documentation brent on phone typical a flutter typical a flutter [facility] follow up G62.9 G60.9 R79.89 Z11.3 E53.1 I70.31 D51.3 g62.9 r79.89 g60.9 z11.3 e53.1 d51.3 M54.17 R60.0 M79.671 r/o dvt L97.511 L03.115 lumbosacral radiculopathy at b7Qbgosb for VisitAmbulatory dysfunction Hypomagnesemia Hypothyroid Type 2 diabetes mellitus with hyperglycemia Vitamin B 12 deficiency Weakness Abnormal thyroid blood test BMI 28.0-28.9,adult [id number] Dietary counseling and surveillance Hyperlipidemia Hypertension Peripheral neuropathy Type 2 diabetes mellitus Vitamin B 12 deficiency Hospital discharge follow-up Hypomagnesemia Chief Complaint aflutter [place], Shaky Amb Documentation brent on phone typical a flutter typical a flutter [facility] follow up G62.9 G60.9 R79.89 Z11.3 E53.1 I70.31 D51.3 g62.9 r79.89 g60.9 z11.3 e53.1 d51.3 M54.17 R60.0 M79.671 r/o dvt L97.511 L03.115 lumbosacral radiculopathy at s1 8 Month F/UReason for VisitAmbulatory dysfunction Hypomagnesemia Hypothyroid Type 2 diabetes mellitus with hyperglycemia Vitamin B 12 deficiency Weakness Abnormal thyroid blood test BMI 28.0-28.9,adult [id number] Dietary counseling and surveillance Hyperlipidemia Hypertension Peripheral [...] 11:14am Dietary counseling and surveillance [facility] 2023 11:14am Hyperlipidemia April 28, [...] 28, 2024 11:14am Dietary counseling and surveillance [facility] 2023 11:14am Hyperlipidemia April 28, 2024 11:14am Hypertension April 28, 2024 11:14am Peripheral neuropathy April 28 11:14am Type 2 diabetes mellitus April 28, 2024 11:14am Vitamin B 12 deficiency April 28 024 11:14am Atrial fibrillation April 28, 2024 10:38pm Generalized weakness April 28, 2024 10:38pm Insulin dependent diabetes mellitus [facility] 2023 10:38pm TIA (transient ischemic attack) April 28, 2024 10:38pm Chief Complaint Admit Date Screening, Dysphagia February 14, 2024 12:30pm NEW elevated WBC April 14, 2024 9:30am irregular heart beat, dizziness, weaknes s April 27, 2024 2:18pm Follow Up 2 Weeks April 28, 2024 9:53am brent on phone April 28, 2024 11:14am Weakness April 28, 2024 10:38pm [facility] FOLLOW UP May 07 1:02pm Reason for Visit Admit Date High granulocyte count April 14 9:30am Secondary polycythemia April 14 9:30am High granulocyte count April 28 9:53am Secondary polycythemia April 28 9:53am BMI 32.0-32.9,adult April 28, 2024 11:14am Chronic kidney disease (CKD) stage G2/A2, mildly decreased glomerular filtr April 28, 2024 11:14am Dietary counseling and surveillance [facility] 2023 11:14am Hyperlipidemia April 28, 2024 11:14am Hypertension April 28, 2024 11:14am Peripheral neuropathy April 28 11:14am Type 2 diabetes mellitus April 28, 2024 11:14am Vitamin B 12 deficiency April 28, 024 11:14am Atrial fibrillation April 28, 2024 10:38pm Generalized weakness April 28, 2024 10:38pm Insulin dependent diabetes mellitus [facility] 2023 10:38pm TIA (transient ischemic attack) April 28, 2024 10:38pm Cigarette nicotine dependence April 1:02pm Chief Complaint Admit Date NEW elevated WBC April 14, 2024 9:30am irregular heart beat, dizziness, weaknes s April 27, 2024 2:18pm Follow Up 2 Weeks April 28, 2024 9:53am brent on phone April 28, 2024 11:14am Weakness April 28, 2024 10:38pm [facility] FOLLOW UP May 07 [...] 11:14am Dietary counseling and surveillance [facility] 2023 11:14am Hyperlipidemia April 28, 2024 11:14am Hypertension April 28, 2024 11:14am Peripheral neuropathy April 28 11:14am Type 2 diabetes mellitus April 28, 2024 11:14am Vitamin B 12 deficiency April 28, 2 024 11:14am Atrial fibrillation April 28, 2024 10:38pm Generalized weakness April 28, 2024 10:38pm Insulin dependent diabetes mellitus [facility] 2023 10:38pm TIA (transient ischemic [...] 11:14am Weakness April 28, 2024 10:38pm [facility] FOLLOW UP May 07 [...] 11:14am Weakness April 28, 2024 10:38pm [facility] FOLLOW UP May 07 [...] 11:14am Weakness April 28, 2024 10:38pm [facility] FOLLOW UP May 07 [...] 11:14am Dietary counseling and surveillance [facility] 2023 11:14am Hyperlipidemia April 28, 2024 11:14am Hypertension April 28, 2024 11:14am Peripheral neuropathy April 28 11:14am Type 2 diabetes mellitus April 28, 2024 11:14am Vitamin B 12 deficiency April 28, 2 024 11:14am Atrial fibrillation April 28, 2024 10:38pm Generalized weakness April 28, 2024 10:38pm Insulin dependent diabetes mellitus [facility] 2023 10:38pm TIA (transient ischemic [...] 10:38pm Insulin dependent diabetes mellitus [facility] 2023 10:38pm TIA (transient ischemic [...] Procedures ECG 12 Lead Jonas Ch MD [address] [place] [address] [facility] DateExpiration DateVisits RequestedVisits [id number] / Procedures Referred By ContactReferred To Contact Diagnoses Typical atrial flutter (Multi) Procedures Complete Pulmonary Function Test (Spirometry/DLCO/Lung Volumes) Jonas Ch MD [address] [place] [address] Referral IDStatus[facility] DateExpiration DateVisits RequestedVisits [id number] [id number] / ProceduresReferred By ContactReferred To ContactRadiology Diagnoses Typical atrial flutter (Multi) Procedures XR chest 2 views Jonas Ch MD [address] [facility] 2, [place] [address] [place] [address] Referral IDStatusReasonStpittston DateExpiration DateVisits RequestedVisits [id number] Perform Procedure [id number] / ProceduresReferred By ContactReferred To ContactCardiology Diagnoses Nonischemic cardiomyopathy (Multi) Procedures Follow Up In Cardiology Jonas Ch MD [address] [place] [address] [facility], [place] [address] [place] [address] Roland Faust MD [address] [place] [address] 2, [address] [address] Referral IDStatusReasonUlysses DateExpiration DateVisits RequestedVisits [id number] / Procedures Referred By ContactReferred To ContactCardiology Diagnoses Typical atrial flutter (Multi) Procedures Cardioversion External Jonas Ch MD [address] [place] [address] 2, [place] [address] [place] [address] Ref[facility]Status[facility] DateExpiration DateVisits RequestedVisits [id number] / ProceduresReferred By ContactReferred To ContactCardiology Diagnoses Typical atrial flutter (Multi) Procedures Follow Up In Cardiology Jonas Ch MD [address] [place] [address] [facility] 2, [place] [address] [place] [address] Jonas Ch MD [address] [place] [address] 2, [place] [address] [place] [address] Referral IDStatusReasonStart DateExpiration DateVisits RequestedVisits [id number]/10/20246/10/[id number] Reason LEFT FOOT INJURY Diagnosis 1 Type 2 diabetes ye itus with hyperglycemia (E11.65) Diagnosis 2 Injury of foot, left (S99.926L) Referral Organization [facility] Referring Provider First Name Angelique Referring Provider Last Name Yvonne Referring Provider Specialty Nurse Pract itioner Referred Organization [facility] Referred Provider Karl Fritz Referred Address ,[place], [place],[address] Referred Provider Specialty Podiatry - S urgical Chiropody Referral Priority Routine Referral Appointment Date 2023-01-09 General Notes Emerald Doshi 12/28 03:26:20 PM >SCHEDULED FOR 01/09/23 AT 10:15AM. PATIENT INFORMED. Additional Source Comments INFORMATION SOURCE (unrecogn ized section and content) DATE CREATED AUTHOR 10/21/2017 [facility] DATE CREATED AUTHOR AUTHOR'S ORGANIZ ATION 10/22/2017 [facility] DATE CREATED AUTHOR AUTHOR'S ORGANIZ ATION 02/16/2019 [facility] DATE CREATED AUTHOR AUTHOR'S ORGANIZ ATION 02/02/2022 [facility] DATE CREATED AUTHOR AUTHOR'S ORGANIZ ATION 11/16/2024 [facility] DATE CREATED AUTHOR AUTHOR'S ORGANIZ ATION 01/01/2025 [facility] DATE CREATED AUTHOR AUTHOR'S ORGANIZ ATION 02/08/2025 [facility] DATE CREATED AUTHOR AUTHOR'S ORGANIZ ATION 02/11/2025 [facility] DATE CREATED AUTHOR AUTHOR'S ORGANIZ ATION 03/11/2025 [facility] REASON FOR VISIT (unrecogniz ed section and content) ReasonCommentsHospital [facility] 09/14/23ReasonCommentsPeripheral Neuropathy ReasonCommentsBlood Pressure CheckWith ekgSpecialtyDiagnoses / Procedures Referred By ContactReferred To ContactCardiology Diagnoses Hypertension, unspecified type Procedures Follow Up In Cardiology Roland Faust MD [address] [facility] 2, [address] [address] Phone: tel: fax: Roland Faust MD [address] [place] [address] 2, [address] [address] Phone: tel: fax: Referral IDStatusReasonStpittston DateExpiration DateVisits RequestedVisits [id number]/11/202411/[id number]-icJAK follow upSpecialtyDiagnoses / ProceduresReferred By ContactReferred To Contact Cardiology Diagnoses Typical atrial flutter (Multi) Procedures Follow Up In Cardiology Jonas Ch MD [address] [place] [address] 2, [place] [phone] Jonas Ch MD [address] [place] [address] 2, [place] [phone] Referral IDStatMet[facility] DateExpiration DateVisits RequestedVisits [id number]/10/20246/[id number] decline ReasonCommentsFollow-upMedication change, Amio d/cSpecialtyDiagnoses / ProceduresReferred By ContactReferred To ContactCardiology Diagnoses Typical atrial flutter (Multi) Procedures Follow Up In Cardiology Roland Faust MD [address] [facility] 2, [place] [phone] Roland Faust MD [address] [facility] 2, [place] [phone] Referral IDStatReV[facility] DateExpiration DateVisits RequestedVisits [id number]/1/20248/[id number] / Procedures Referred By ContactReferred To ContactNeurology Diagnoses Carpal tunnel syndrome, bilateral upper limbs Procedures CT INJECTION THERAPEUTIC CARPAL TUNNEL CT KETOROLAC TROMETHAMINE INJ 1 CC STERILE SYRINGE&NEEDLE Oz Kincaid MD [address] [place] [phone] Oz Kincaid MD [address] [place] [phone] Referral IDStatusReasonStart DateExpiration DateVisits RequestedVisits [id number] Perform Procedure /[id number] month with EKG. Pt denies c/o at this time.SpecialtyDiagnoses / ProceduresReferred By ContactReferred To Contact Cardiology Diagnoses Nonischemic cardiomyopathy (Multi) Procedures Follow Up In Cardiology Jonas Ch MD Traboulssi, Mourhaf, MD [address] [place] [address], [place] [address] Phone: tel: fax: Referral IDStatusReasonStart DateExpiration DateVisits RequestedVisits [id number] Review/[id number] declineReasonCommentsMed RefillReasonCommentsFollow-up6 month, nonischemic cardiomyopathySpecialtyDiagnoses / ProceduresReferred By ContactReferred To ContactCardiology Diagnoses Nonischemic cardiomyopathy (Multi) Procedures Follow Up In Cardiology Roland Faust MD [address] [facility] 2, [place] [phone] Phone: tel: fax: Referral IDStatusReasonStart DateExpiration DateVisits RequestedVisits [id number]/28/20252/[id number]s Exam Patient present for New patient yearly [...] 2024 End: July 22, 2024Latricia Jacobs , TOP PRECIPITATOR OPERATOR HELPER-CAttending ProviderActiveStart: July 22, 2024 End: July 22, [...] Provider Acti stephanie Fine , MDActiveCaitlin Yao iGang , PA-CActiveTondra Estephania Russell , MENTAL HEALTH PROGRAM DIRECTOR Attending ProviderActive Team Status: Inactive Member Role Status Dates Sandra Keita , DO Primary Care Provider, Attending Franchesca hartley Active Team Status: Inactive Member Role Status Dates Tray [place]le , DO Emergency Provider Active Arleen Stephen MDAdmit ProviderActivePasocorro Montgomery , Other ProviderActiveTeresa Strong MDOther ProviderActiveLa Paz Regional Hospitalmarkel Vance , MDAttending ProviderActive Jonas Yoder , [facility] Care ProviderActive Team Status: Inactive Member Role [...] MDAdmit Provider, Other ProviderActiveStart: September 14, 2023 aMrli Paz RNOther ProviderActiveStart: September 14, 2023 Elly [...] MemberRelationshipSpecialtyStart DateEnd Date Sandra Keita DO [address] [facility] [place] [address] PCP - [facility]09/25/23 Team Status: Active Member Role Status [...] 30, 2023 End: October 30, 2023Oz Kincaid , MDAttending ProviderActiveStart: October 30, 2023 End: [...] November 10, 2023 End: November 11ko Medina TOP PRECIPITATOR OPERATOR HELPER-COther ProviderActiveStart: November 10, 2023 End: November 12, [...] MemberRelationshipSpecialtyStart DateEnd Date Sandra Keita DO [address] [facility] [place] [address] PCP - [facility]01/09/23 Team Status: Inactive Member Role Status Dates Sandra Keita DO Primary Care Provide r, Attending Provider Active Start: February 03, 2024 End: February 03, 2024Team MemberRelationshipSpecialtyStart DateEnd Date Sandra Keita DO [address] [facility] [place] [address] PCP - [facility]01/09/23Team MemberRelationshipSpecialtyStart DateEnd Date Sandra Keita DO [address] [place] [phone] PCP - GeneralFamily Medicine01/09/23Team MemberRelationshipSpecialtyStart DateEnd Date Sandra Keita DO [address] [place] [address] PCP - GeneralFamily Medicine01/09/23Team MemberRelationshipSpecialtyStart DateEnd Date Sandra Keita DO [address] [place] [address] PCP - GeneralFamily Medicine01/09/23Team MemberRelationshipSpecialtyStart DateEnd Date Sandra Keita DO [address] [place] [address] PCP - GeneralFamily Medicine09/25/23Team MemberRelationshipSpecialtyStart DateEnd Date Sandra Keita, [address] [place] [address] PCP - GeneralFamily Medicine01/09/23Team MemberRelationshipSpecialtyStart DateEnd Date Sandra Keita, DO [address] [place] [address] PCP - GeneralFamily Medicine01/09/23Team MemberRelationshipSpecialtyStart DateEnd Date Sandra Keita DO [address] [place] [address] PCP - GeneralFamily Medicine01/09/23Team MemberRelationshipSpecialtyStart DateEnd Date Sandra Keita DO [address] [place] [address] PCP - GeneralFamily Medicine09/25/23Team MemberRelationshipSpecialtyStart DateEnd Date Sandra Keita DO [address] [place] [address] PCP - Generalmily Medicine01/09/23Team MemberRelationshipSpecialtyStart DateEnd Date Sandra Keita DO [address] [place] [address] PCP - Generalmily Medicine01/09/23Team MemberRelationshipSpecialtyStart DateEnd Date Sandra Keita DO [address] [place] [address] PCP - Generalmily Medicine09/25/23Team MemberRelationshipSpecialtyStart DateEnd Date Sandra Keita DO [address] [place] [address] PCP - GeneralFamily Medicine01/09/23Team MemberRelationshipSpecialtyStart DateEnd Date Sandra Keita DO [address] [place] [address] PCP - GeneralFamily Medicine01/09/23Team MemberRelationshipSpecialtyStart DateEnd Date Keita, Sandra, DO [address] [place] [address] PCP - GeneralFamily Medicine01/09/23Team MemberRelationshipSpecialtyStart DateEnd Date Keita, Sandra, DO [address] [place] [address] PCP - Generalmily Medicine01/09/23Team MemberRelationshipSpecialtyStart DateEnd Date Keita, Sandra, DO [address] [place] [address] PCP - Generalmily Medicine01/09/23Team MemberRelationshipSpecialtyStart DateEnd Date Keita, Sandra, DO [address] [place] [address] PCP - GeneralFamily Medicine01/09/23Team MemberRelationshipSpecialtyStart DateEnd Date Keita, Sandra, DO [address] [place] [address] PCP - GeneralFamily Medicine01/09/23Team MemberRelationshipSpecialtyStart DateEnd Date Keita, Sandra, DO [address] [place] [address] PCP - GeneralFamily Medicine01/09/23Team MemberRelationshipSpecialtyStart DateEnd Date Debbie DO Sandra [address] [facility] [place] [address] PCP - GeneralGeorge [facility] Hospitalqu[facility]01/09/23 Team Status: Inactive Member Role [...] MemberRelationshipSpecialtyStart DateEnd Date Sandra Keita DO [address] [place] [address] PCP - [facility]09/25/23 Team Status: Inactive Member Role Status Dates Sandra Keita DO Primary Care Provider Active Start: April 28, 2024 End: April 28, 2024Tim Wagner ProviderActive Start: April 28, 2024 End: April 28, 2024Team MemberRelationshipSpecialtyStart DateEnd Date Sandra Keita DO [address] [place] [address] [facility] Team Status: Inactive Member Role Status Dates [...] MemberRelationshipSpecialtyStart DateEnd Date Sandra Keita DO [address] [facility] [place] [address] PCP - GeneralFamily Medicine10/15/24Team MemberRelationshipSpecialtyStart DateEnd Date Sandra Keita DO [address] [facility] [place] [address] PCP - GeneralFamily Medicine10/15/24Team MemberRelationshipSpecialtyStart DateEnd Date Sandra Keita DO [address] [place] [address] PCP - [facility]10/15/24Team MemberRelationshipSpecialtyStart DateEnd Date Sandra Keita DO [address] [facility] [place] [address] PCP - [facility]10/15/24 Team Status: Inactive Member Role Status [...] MemberRelationshipSpecialtyStart DateEnd Date Sandra Keita DO [address] [facility] [place] [address] [facility] - [facility]10/15/24Team MemberRelationshipSpecialtyStart DateEnd Date Sandra Keita DO [address] [facility] [place] [address] PCP - [facility]10/15/24 Team Status: Active Member Role Status Dates Shantel Norton APRN TOP PRECIPITATOR OPERATOR HELPER-C Primary Care Provider Active Team Status: Inactive Member Role Status Dates Shantel Norton APRN TOP PRECIPITATOR OPERATOR HELPER-C Primary Care Provider Active Start: December 15, 2024 End: December 15, 2024Shantel Norton APRN TOP PRECIPITATOR OPERATOR HELPER-CAttending ProviderActive Start: December 15, 2024 End: December 15, 2024Team MemberRelationshipSpecialtyStart DateEnd Date Sandra Keita DO [address] [place] [address] [facility]/15/24 Team Status: Inactive Member Role Status Dates Samm Medina MD Attending Provider Active S tart: December 24, 2024 End: December 24, 2024Shantel Norton APRN TOP PRECIPITATOR OPERATOR HELPER-CPrimary Care ProviderActive Start: December 24, 2024 End: December 24, 2024Team MemberRelationshipSpecialtyStart DateEnd Date Shantel Norton APRN-PATTERN REPAIR PERSON [address] [place] [address] PCP - [facility]12/30/24 Team Status: Active Member Role Status Dates Samm Medina MD Attending Provider Active S tart: December 31, 2024 Samm Medina MDOther ProviderActiveStart: December 31, 2024 Shantel Norton APRN TOP PRECIPITATOR OPERATOR HELPER-CPrimary Care ProviderActiveStart: December 31, 2024 Team Status: Inactive Member Role Status Dates Shantel Norton APRN TOP PRECIPITATOR OPERATOR HELPER-C Primary Care Provider Active Start: January 052024 End: January 05, 2025Tim Guerrero ProviderActiveStart: January 05, 2025 End: January 05, 2025 Team Status: Inactive Member Role Status Dates Shantel Norton APRN TOP PRECIPITATOR OPERATOR HELPER-C Primary Care Provider Active Start: December 282024 End: January 12, 2025Shantel Norton APRN TOP PRECIPITATOR OPERATOR HELPER-CAttending ProviderActive Start: January 12, 2025 End: January 12, 2025Team MemberRelationshipSpecialtyStart DateEnd Date Sandra Keita DO [address] [place] [address] PCP - [facility] Medicine10/15/24Team MemberRelationshipSpecialtyStart DateEnd Date Sandra Keita DO [address] [place] [address] PCP - [facility]10/15/24 Team Status: Inactive Member Role Status Dates Shantel Norton APRN TOP PRECIPITATOR OPERATOR HELPER-C Primary Care Provider Active Start: February 02, 2025 End: February 02, 2025Shantel Norton APRN TOP PRECIPITATOR OPERATOR HELPER-CAttending ProviderActive Start: February 02, 2025 End: February 02, 2025Team MemberRelationshipSpecialtyStart DateEnd Date Sandra Keita DO [address] [place] [address] PCP - [facility]10/15/24Team MemberRelationshipSpecialtyStart DateEnd Date Sandra Keita DO [address] [place] [address] PCP - [facility]10/15/24Team MemberRelationshipSpecialtyStart DateEnd Date Sandra Keita DO [address] [place] [address] PCP - [facility]6/19/25 Goals (unrecognized section and content) Goals [...] BE BASED ON THE PRIMARY CLINICAL RECORDS. [facility] [employer] [facility]. provides no warranty or guarantee of the accuracy or completeness of information in this document.
--- NOTE | 2025-03-17 11:49 | XR_ITS ---
The [place] [id number] Patient Name: TAYE MARCOS MRN: [id number] date: 1955 Sex: F Assigned Patient Location: [facility] Current Patient Location: [facility] Accession/Order Number: [id number] Exam Date: 03/17/2025 11:57 Report Date: 03/17/2025 22:23 At the request of: ELOISA PRETTY DPZenon Procedure: XR foot RT min 3V 3 views right foot standing HISTORY: Right foot ulcer. 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 No acute displaced fracture. Posterior and inferior calcaneal spurring. Unremarkable soft tissues. XR/XR foot RT min 3V IMPRESSION: Extensive first interphalangeal degeneration. Contractures toes. Calcaneal spurring. Impression dictated by: Eugenio Lazo M.D. 03/17/2025 10:23 PM Dictation Location: [place] [address] Electronically authenticated by: [id number] Y Date: 03/17/2025 22:23
== END 2025-03-17 11:35 | disposition home or self-care (01) ==
PROVIDERS: Family Provider Family Medicine; PCP Nurse Practitioner Family; Visit Provider Podiatrist Foot & Ankle Surgery
DX: M20.21 Hallux rigidus, right foot (principal); L97.519 Non-pressure chronic ulcer of other part of right foot with unspecified severity
CPT/HCPCS: 73630

== ENCOUNTER 2025-04-07 14:08 | Outpatient (OUT) | payer MEDICARE, MEDICAID, SELFPAY ==
--- OUTSIDE RECORDS SUMMARY | 2025-04-07 14:17 | XMS_ITS | CCD ---
Author Organization [facility] Care Team Providers Care Project Superintendent Name Role Phone MATTHEW VOSS MD Unavailable [...] Unavailable DO Sandra Keita Primary Care Provider [phone] DO Sandra Keita Attending Provider Reyna Dallas Unavailable Brayden Noble Unavailable DO Jonas Yoder Primary Care Provider NITZA Russell Attending Provider Keita, Sandra A Primary Care Provider Keita, DO Sandra A Attending Provider [phone] Keita, DO Sandra A Primary Care Provider Keita, DO Sandra A Attending Provider NITZA Russell Attending Provider DO Edgar Valenzuela Emergency Provider [phone] MD Elva Florian Admit Provider [phone] MD Elva Florian Attending Provider BRENDA Pazher Other Provider Unavailable DO Elly Yoo Other Provider MD Ric Lamar Other Provider MD Jonas Ch Other Provider MD Roland Faust Other Provider MD Manjit Barbosa Other Provider NITZA Fritz Other Provider MD Stephanie Stoll Other Provider MD Jann [place] [facility] [place] MD Cara Tenorio Other Provider Fidel [facility] Elizabeth Samay[place] Other Provider MD Ashley Cheatham Other Provider Debbie BONNER, Sandra A Primary Care Provider DO Debbie Sandra A Primary Care Provider MD Oz Kincaid Attending Provider [phone] MD Jonas Ch Attending Provider DO Rl Villavicencio Emergency Provider [phone] DO Jluis Campos Admit Provider DO Jluis [...] Referring Provider MD Roland Faust Attending Provider BRARIE Fritz Attending Provider Keita DO, Sandra Primary Care Provider Keita, DO Sandra A Primary Care Provider MD Oz Kincaid Attending Provider [phone] Keita DO, Sandra A Primary Care Provider [phone] Manjit Gleason MD Attending Provider Rl Villavicencio DO Emergency Provider Wesley Villafuerte PA-C Emergency Provider Jori Hearn DO Admit Provider [phone] Jori Hearn DO Attending Provider [phone] Priscilla Lang MD Attending Provider Lit Clark [...] Provider Keita DO, Sandra A Referring Provider [phone] NO FAMILY, PHYSICIAN Primary Care Provider Daniella Frizt DPM, Karl Attending Provider Shantel Norton APRN Primary Care Provider AshleyacheShantel flores APRN Attending Provider Ashleyachesandra WASHATERIA ATTENDANT-UNDER BASTER, Shantel A Primary Care Pro vider TRABOULJOANNE, MOURHAF Attending Unavailable TRABOULSSI, MOURHAF Referring Unavailable ROHRBACHER, SHANTEL A Primary Care Unavailab le TRABOULSSI, MOURHAF Attending Unavailable TRABOULSSI, MOURHAF Referring Unavailable KEITA, SANDRA A Primary Care Unavailable TRABOULSSI, MOURHAF Attending Unavailable JONAS CH Referring Unavailable KEITA, SANDRA A Primary Care Unavailable Samm Medina MD Attending Provider Samm Medina MD Other Provider Angelique uRssell APRN Attending Provider [phone] Keita, Sandra A Primary Care Unavailable Tray [...] KINCAID Attending Unavailable LINWOOD IRWIN Attending Unavailable LNIWOOD IRWIN Attending Unavailable ZACK CORDOBA Attending Unavailab JONAS Bryan Primary Care Unavailab JONAS Bryan Primary Care Unavailab le Allergies Allergy ClassificationReported Allergen(s)Allergy TypeDate of OnsetReaction(s) Facility (20 sources)Sulfamethoxazole; Translations: [sulfamethoxazole]Drug Allergy 86-16-1520XkodoovTzfublAv[facility] (19 sources)Sulfonamides (Antibiotic); Translations: [SULFA (SULFONAMIDE ANTIBIOTICS)]Allergy to tgqvhdxqy69-69-3820VG intolerance, Unknown, [facility]ause[facility] ([facility] sources)Sulfonamides (Antibiotic)Drug Bjccrkr08-19-1199WF intolerance, UnknownSaint [facility] ([facility] sources)pioglitazone; Translations: [pioglitazone]Drug Wdcicfh69-24-3434xjq edemaLancaster Municipal Hospital Medications Current Medications MedicationDrug Class(es)DatesSig (Normalized)Sig (Original)3 ML semaglutide 1.34 MG/ML Pen Injector [Ozempic] (20 sources)Start: 43-93-5324crfjcc 0.5 mg by subcutaneous injection every week Ozempic (1 MG/DOSE) 4 MG/3ML 1mg Subcutaneous once weekly for 28 days Stop ozempic 0.5mg dose Feb, Activeinject 1 mg by subcutaneous injection every weekOzempic (1 MG/DOSE) 4 MG/3ML 1mg Subcutaneous once weekly for 28 days Activeapixaban 5 mg oral tablet (20 sources)Factor Xa InhibitorStart: 07-08-2024 End: 25-01-1462aybr 1 tablet by mouth twice dailyStart: 09-14-2023 End: 11-15-1636tuqr 1 tablet by mouth twice dailyApixaban (Eliquis) 5 mg tablet Discontinued 5 MG PO Twice daily 180 December 03, 2023 1:05pm July 08, 2024 11:49amaspirin 81 mg delayed release oral tablet (20 sources)Platelet Aggregation Inhibitor, Nonsteroidal Anti-inflammatory Drug Start: 42-74-6173rucv 1 tablet by mouth once dailytake 1 tablet by mouth once dailyAspir-Low 81 MG 1 tablet Orally Once a day Activecarvedilol 12.5 mg oral tablet (20 sources)alpha-Adrenergic Debbie, beta-Adrenergic BlockerStart: 03-09-2024 End: 07-70-7629rnfi 1 tablet by mouth in the morningcarvedilol (Coreg) 12.5 MG tablet Take 12.5 mg by mouth in the morning and 12.5 mg in the evening. Take with meals. 03/09/2024 03/09/2025 ActiveContinuous Blood Gluc Sensor (FreeStyle Brent 14 Day Sensor) misc (20 sources)Start: 72-87-7558Fukowkxmkd Blood Gluc Sensor (FreeStyle Brent 14 Day Sensor) [facility] apply 1 SENSOR as directed every 14 days use with DEVICE to MONIT... (REFER TO PRESCRIPTION NOTES). 12/21/2022 Activedocusate sodium 100 mg oral capsule (20 sources)Start: 72-84-7129hoab 1 capsule by mouth in the morningDocusate Sodium (DSS) 100 MG capsule Take 100 mg by mouth in the morning and 100 mg in the evening.06/12/2023 ActiveStart: 02-09-2021 End: 22-74-9127xydr 1 capsule by mouth three times dailyDocusate [...] mg oral tablet (20 sources)Start: 02-25-2024 End: 20-81-1134jtjraffpt (Aricept) 10 MG tablet Indications: Cognitive decline 2 tabs QAM 60 tablet 5 07/21/2024 Activetake 1 tablet by mouth twice daily donepezil (Aricept) 10 mg tablet Take 1 tablet (10 mg) by mouth 2 times a day. ActiveEasy Touch Lancing Device - (4 sources)Easy Touch Lancing Device - as directed Activeempagliflozin 25 mg oral tablet (20 sources)Sodium-Glucose Cotransporter 2 InhibitorStart: 02-09-2021 End: 73-72-7805llyg 1 tablet by mouth once gwxgvcqt200820 0.3 ml EPINEPHrine 1 mg/ml auto-injector (5 sources)alpha-Adrenergic Agonist, beta-Adrenergic Agonist, Catecholamine Start: 21-00-4361Jfwtc Glucose Sensor (Freestyle Brent 14 Day Sensor) kit (20 sources)Start: 07-90-7544Tkvmv Glucose Sensor (Freestyle Brent 14 Day Sensor) kit Active 0 .ROUTE .MEDSUPPLY December 29, 2024 7:04am As directed Change every 14 daysStart: 01-10-2024 End: 60-62-6470Djrep Glucose Sensor (Freestyle Brent 14 Day Sensor) kit Discontinued 0 .ROUTE .MEDSUPPLY 2 January 10, 2024 12:00am December 29, 2024 7:04am As directed Change every 14 daysStart: 42-14-6770Tbefb Glucose Sensor (Freestyle Brent 14 Day Sensor) kit Active 0 .ROUTE .MEDSUPPLY 2 January 09, 2024 11:00pm As directed Change every 14 daysStart: 01-10-2024 Flash Glucose Sensor (Freestyle Brent 14 Day Sensor) kit Active 0 .ROUTE .MEDSUPPLY 2 January 10, 2024 12:00am As directed Change every 14 daysStart: 07-22-2023 End: 87-23-7534Cepce Glucose Sensor (Freestyle Brent 14 Day Sensor) kit Discontinued 0 .ROUTE .MEDSUPPLY July 22, 2023 12:00am April 28, 2024 12:40pm As directed Change every 14 daysStart: 07-22-2023 End: 75-16-2610Ueirz Glucose Sensor (Freestyle Brent 14 Day Sensor) kit Discontinued 0 .ROUTE .MEDSUPPLY July 21, 2023 11:00pm April 28, 2024 11:40am As directed Change every 14 daysStart: 53-42-3600Qwtqn Glucose Sensor (Freestyle Brent 14 Day Sensor) kit Active 0 .ROUTE .MEDSUPPLY 2 July 21 12:00am As directed Change every 14 daysfolic acid 1 mg oral tablet (20 sources)Start: 20-99-4175jqyv 1 tablet by mouth once dailyStart: 02-09-2021 End: 67-97-0912ibxi 1 tablet by mouth once dailyfolic acid [...] oral tablet (19 sources)Loop DiureticStart: 05-07-2024 End: 60-22-2765cipn 1 tablet by mouth every other dayfurosemide (Lasix) 20 mg tablet Indications: Shortness of breath , Edema, unspecified type Take 1 tablet (20 mg) by mouth every other day. 45 tablet 3 05/07/2024 05/07/2025 ActiveStart: .5 ml insulin glargine 300 unt/ml pen injector (20 sources)Insulin AnalogStart: 01-05-2025 End: 33-85-3489cvecci 23 [IU] by subcutaneous injection once daily in the morningStart: 04-28-2024 End: 08-46-1389lngizt 22 [IU] by subcutaneous injection once daily in the morningInsulin Glargine U-300 Conc (Toujeo Solostar U-300 Insulin) 300 unit/mL (1.5 mL) insulin pen Discontinued 22 UNIT SUBCUT Every morning January 05, 2025 1:41pm January 05, 2025 2:45pmStart: 06-12-2023 End: 81-17-5686yqaijr 20 [IU] by subcutaneous injection once dailyInsulin Glargine U-300 Conc (Toujeo Solostar U-300 Insulin) 300 unit/mL (1.5 mL) insulin pen Discontinued 20 UNIT SUBCUT Daily November 14, 2023 4:09pm April 28, 2024 1:59pmStart: 06-83-8737Blxaaf SoloStar 300 UNIT/ML injection inject 20 units subcutaneously as directed 12/12/2022 ActiveStart: 37-94-6203qrhmasw glargine (Toujeo Solostar- 1 unit dial) 300 unit/mL (1.5 mL) injection 20 Units. 12/12/2022ctiveStart: 10-10-2022 End: 97-13-4869Zrybyud Glargine U-300 Conc (Toujeo Solostar U-300 Insulin) 300 unit/mL (1.5 mL) insulin pen Discontinued UNIT SUBCUT October 10, 2022 12:00am June 12, 2023 9:13amStart: 23-65-7281kmkwhp 20 [IU] by subcutaneous injection once dailyToujeo SoloStar 300 UNIT/ML 20 units once daily Subcutaneous as directed for 90 days (titrate up to30 units/day) Dec, ActiveInsulin Lispro 100 unit/mL insulin pen (20 sources)Start: 04-96-6832Iskxntc Lispro 100 unit/mL insulin pen Active 0 SUBCUT Before meals and at bedtime August 20, 2024 12:03pm subcutaneously before meals and at bedtime; 1:40 corrective scale (expect up to 20 units/day) Start: 12-23-2023 End: 70-16-2345Rnmjite Lispro 100 unit/mL insulin pen Discontinued 0 SUBCUT Before meals and at bedtime December 23, 2023 4:11pm August 20, 2024 12:04pm subcutaneously before meals and at bedtime; 1:50 corrective scale (expect up to 20 units/day)Start: 62-52-8407Tjiswuc Lispro 100 unit/mL insulin pen Active 0 SUBCUT Before meals and at bedtime December 23, 2023 4:11pm subcutaneously before meals and at bedtime; 1:50 corrective scale (expect up to 20 units/day) Start: 03-56-2962Yshpbha Lispro 100 unit/mL insulin pen Active 0 SUBCUT Before meals and at bedtime December 23, 2023 3:11pm subcutaneously before meals and at bedtime; 1:50 corrective scale (expect up to 20 units/day)Start: 06-12-2023 End: 22-71-0827Hvrorjd Lispro 100 unit/mL insulin pen Discontinued 0 SUBCUT Before meals and at bedtime June 12, 2023 9:05am December 23, 2023 4:14pm subcutaneously before meals and at bedtime; 1:50 corrective scale (expect up to 20 units/day)Start: 06-12-2023 End: 33-81-7983Aleldry Lispro 100 unit/mL insulin pen Discontinued 0 SUBCUT Before meals and at bedtime June 12, 2023 8:05am December 23, 2023 3:14pm subcutaneously before meals and at bedtime; 1:50 corrective scale (expect up to 20 units/day)ketoconazole 20 mg/ml medicated shampoo (2 sources)Azole AntifungalStart: ml ketorolac tromethamine 30 mg/ml cartridge (2 sources)Nonsteroidal Anti-inflammatory Drug, Cyclooxygenase InhibitorStart: 01-03-2024 End: 68-42-0133jbjsfyxrz (Toradol) injection 30 mgStart: 01-03-2024 End: 67-75-1542dfndoa 30 mg by subcutaneous injection once30 mg, Intramuscular, Once, On Sat01/03/24 at 1745, For 1 dose, SubcutaneousL. acidophilus/Bifid. animalis (4 sources)Start: 63-33-0753rrqf 1 tablet by mouth once dailyStart: 08-25-2024 take 1 tablet by mouth once dailyL. acidophilus/Bifid. animalis Active 1 TAB PO Daily August 25, 2024 12:00ammagnesium oxide 400 mg oral tablet (20 sources)Start: 01-29-2024 End: 91-71-4198dgnl 1 tablet by mouth twice dailyStart: 26-79-4393bzsd 1 tablet by mouth twice dailyMagnesium Oxide Active 0 .ROUTE .COMPLEX 180 January 29, 2024 10:22am TAKE 1 TABLET BY MOUTH TWICEA DAYStart: 11-18-2023 End: 76-55-2380eocb 1 tablet by mouth in the morningmagnesium oxide (Mag-Ox) 400 (240 Mg) MG tablet Take 400 mg by mouth in the morning and 400 mg before bedtime. 01/02/2024 ActiveStart: 09-14-2023 End: 66-50-4954rjom 1 tablet by mouth once dailyMagnesium Oxide (Magox) 400 mg (241.3 mg magnesium) tablet Discontinued 400 MG PO Daily September 14, 2023 12:00am November 18, 2023 2:05pmmemantine hydrochloride 10 mg oral tablet (20 sources)B-rodrmi-T-aspartate Receptor AntagonistStart: 46-96-5136gomirxvot (Namenda) 10 MG tablet Indications: Cognitive decline 1 tab BID 60 tablet 5 07/21/2024 ActiveStart: 04-28-2024 End: 13-69-5143fwsgscrzt (Namenda) 10 MG tablet Indications: Cognitive decline 1 tab BID 60 tablet 5 07/21/2024 ActiveStart: 02-25-2024 End: 16-93-4044hiuzxptjw (Namenda) 10 MG tablet Indications: Cognitive decline 1 tab every day x3-5 days then BID 60 tablet 3 02/25/2024 07/21/2024 Discontinued (Reorder)metFORMIN hydrochloride 500 mg oral tablet (20 sources)BiguanideStart: 08-26-2023 End: 54-93-9976djtp 1 tablet by mouth twice daily at mealtimeMetformin 500 mg tablet Discontinued 0 .ROUTE .COMPLEX 180 August 20, 2024 12:01pm Aurea 9th, 2025 2:46pm take 1 tablet by mouth twice a day with mealsStart: 02-09-2021 End: 65-78-0183nrzFQOKKA (Glucophage) 500 MG tablet Take 500 mg by mouth 08/26/2023 ActiveMiscellaneous Medical Supply (20 sources)Start: 82-62-1665Nqhhtsefcnvso Medical Supply Active 0 .Route 1 November 26, 2023 2:24pm Hospital BedStart: 11-26-2023 End: 19-88-4305Yatdglzunqxnq Medical Supply Discontinued 0 .Route 1 November 26, 2023 2:22pm November 26, 2023 2:25pm As directedStart: 2023 End: 48-88-7268Zgtmtgiqzxfza Medical Supply Discontinued 0 .Route 1 2023 2:20pm November 26, 2023 2:23pm As directedStart: 09-30-2023 End: 57-40-9083Rtrhsqzamzhst Medical Supply Discontinued 0 .Route 1 September 30, 2023 8:33am 2023 2:21pm As directedStart: 73-41-5691Cmwmlfxggvjwv Medical Supply Active 0 .Route 1 September 30, 2023 8:33am As directedStart: 09-17-2023 End: 72-22-9911Lbfrvlzjbafci Medical Supply Discontinued 0 .Route 1 September 17, 2023 12:00am September 30, 2023 8:33am As directedStart: 85-30-4538Tzxiyqcavzovq Medical Supply Active 0 .Route 1 September 17, 2023 12:00am As directedMultivitamin preparation (20 sources)Start: 40-31-7198fvdh 1 tablet by mouth once dailyMultivitamin Active 1 TAB PO Daily June 12, 2023 9:10amStart: 18-08-5184eiea 1 tablet by mouth once dailyMultivitamin Active 1 TAB PO Daily June 12, 2023 8:10am Start: 02-09-2021 End: 66-73-2108wzkw 1 tablet by mouth twice dailyMultivitamin Discontinued 1 TAB PO Twice daily February 09, 2021 12:00am June 12, 2023 9:13amStart: 02-09-2021 End: 83-34-7008zrig 1 tablet by mouth twice dailyMultivitamin Discontinued 1 TAB PO Twice daily February 08, 2021 11:00pm June 12, 2023 8:13amStart: 85-01-3606hbyk 1 tablet by mouth twice dailyMultivitamin Active 1 TAB PO Twice daily February 08, 2021 11:00pmStart: 97-58-5513mtue 1 tablet by mouth twice dailyMultivitamin Active 1 TAB PO Twice daily February 09, 2021 12:00amtake 1 tablet by mouth once dailyMultivitamin - 1 tablet Orally Once a day Active Multivitamin tablet (20 sources)Start: 16-03-3791quhy 1 tablet by mouth once dailyMultivitamin tablet Active 1 TAB PO Daily June 12, 2023 9:10am Complies with drug therapyStart: 50-99-7090cnfg 1 tablet by mouth once dailyStart: 87-15-9491wnkz 1 tablet by mouth once dailyMultivitamin tablet Active 1 TAB PO Daily June 12, 2023 9:10amStart: 73-17-3528nujk 1 tablet by mouth once dailyMultivitamin tablet Active 1 TAB PO Daily June 12, 2023 8:10amnortriptyline 25 mg oral capsule (20 sources)Tricyclic AntidepressantStart: 02-25-2024 End: 99-40-0817wakw 1 capsule by mouth at bedtimenortriptyline (Pamelor) 25 MG capsule Indications: Neurogenic pain Take 1 capsule (25 mg) by mouth at bedtime 30 capsule 5 07/21/2024 ActiveStart: 06-18-2023 End: 84-19-1734qwju 100 mg by mouth once dailyNortriptyline Discontinued 100 MG PO Daily 180 90 October 16, 2023 7:37am November 18, 2023 2:05pmStart: 01-04-2023 End: 72-12-1554eviz 1 capsule by mouth once dailyNortriptyline 50 mg capsule Discontinued 50 MG PO Daily 90 90 November 18, 2023 2:01pm February 03, 2024 12:05pmStart: 01-04-2023 End: 73-35-0032kmbp 2 capsules by mouth once daily at bedtimenortriptyline (Pamelor) 50 mg capsule Take 2 capsules (100 mg) by mouth once daily at bedtime. 01/04/2023 12/16/2023 Discontinued (Therapy completed)Start: 02-09-2021 End: 54-35-4025ckwq 1 capsule by mouth twice dailyNortriptyline 50 mg capsule Discontinued 50 MG PO Twice daily June 12, 2023 9:07am June 18, 2023 8:10pmtake 1 capsule by mouth every twenty-four hoursNortriptyline HCl 50 MG 1 capsules Orally Once a day Activeomeprazole 20 mg delayed release oral capsule (20 sources)Proton Pump InhibitorStart: 85-86-9478qkji 1 capsule by mouth once dailyStart: 07-01-2023 End: 31-47-2617urvs 1 capsule by mouth once dailyOmeprazole 20 mg capsule,delayed release(DR/EC) Discontinued 0 .ROUTE .COMPLEX 90 January 06, 2024 12:36pm September 10, 2024 12:44pm take 1 capsule by mouth once dailyStart: 01-02-2023 End: 70-88-9633leztxdxfan (PriLOSEC) [address] capsule 01/02/2023 ActiveStart: 02-09-2021 End: 69-33-2965nzll 1 tablet by mouth once dailyOmeprazole 20 [...] MG/DOSE, 4 MG/3ML solution pen-injector (20 sources)Start: 84-26-1762vnwpgy 1 mg by subcutaneous injection every week Ozempic, 1 MG/DOSE, 4 MG/3ML solution pen-injector Administer 1mg subcutaneously once weekly 12/10/2022 Activepregabalin 300 mg oral capsule (20 sources)Start: 03-59-4706znnf 2 capsules by mouth once daily at bedtime Start: 07-10-2024 End: 68-03-9422kgpy 1 capsule by mouth twice dailypregabalin (Lyrica) 300 MG capsule Indications: Neurogenic pain TAKE 1 CAPSULE BY MOUTH TWICE A GNA961 capsule 1 03/01/2025 ActiveStart: 01-15-2024 End: 02-28-2387bqna 1 capsule by mouth once dailyPregabalin 300 mg capsule Discontinued 300 MG PO Daily 90 90 July 03, 2024 1:03pm October 01, 2024 3:16pm Start: 35-17-2776Mnwzmdoeqc Active MG PO January 15, 2024 12:00amStart: 56-09-6531zgli 1 capsule by mouth twice dailypregabalin (Lyrica) 300 MG capsule Indications: Neurogenic pain TAKE 1 CAPSULE BY MOUTH TWICE A DAY60 capsule 3 01/07/2024 ActiveStart: 11-18-2023 End: 79-52-3268gctg 1 capsule by mouth twice dailyPregabalin (Lyrica) 150 mg capsule Discontinued 150 MG PO Twice daily November 18, 2023 12:00am January 15, 2024 3:40pmSemaglutide (6 sources)Start: 47-64-7323ikywvx 2 mg by subcutaneous injection every week Semaglutide (Ozempic) 2 mg/dose (8 mg/3 mL) pen injector Active 2 MG SUBCUT every week April 28, 2024 1:00am Complies with drug therapyStart: 68-31-4891dcbiai 2 mg by subcutaneous injection every weeksemaglutide (Ozempic) 1 mg/dose (4 mg/3 mL) pen injector (6 sources)Start: 63-71-0233emadgfgmlpi (Ozempic) 1 mg/dose (4 mg/3 mL) pen injector 2 mg 1 (one) time per week. 12/10/2022 ActiveStart: 76-25-4179utjozw 1 mg by subcutaneous injection every weeksemaglutide (Ozempic) 1 mg/dose (4 mg/3 mL) pen injector Administer 1mg subcutaneously once weekly 12/10/2022 Active Semaglutide (Ozempic) 2 mg/dose (8 mg/3 mL) pen injector (14 sources)Start: 53-48-7541qqckec 2 mg by subcutaneous injection every week Semaglutide (Ozempic) 2 mg/dose (8 mg/3 mL) pen injector Active 2 MG SUBCUT every week April 28, 2024 1:00amStart: 23-44-9118dxfvgw 2 mg by subcutaneous injection every weekSemaglutide (Ozempic) 2 mg/dose (8 mg/3 mL) pen injector Active 2 MG SUBCUT every week April 28, 2024 12:00amsertraline 50 mg oral tablet (17 sources)Serotonin Reuptake InhibitorStart: 61-10-7241djri 1 tablet by mouth once dailysertraline (Zoloft) 50 MG tablet Take 50 mg by mouth Daily 01/12/2025 ActiveStart: 12-15-2024 End: 62-65-9711nash 1 tablet by mouth once dailySertraline 25 mg tablet Discontinued 25 MG PO Daily January 11, 2025 11:49am January 12, 2025 2:36pmsimvastatin 20 mg oral tablet (20 sources)HMG-CoA Reductase InhibitorStart: 04-30-2024 End: 58-36-5806xryo 2 tablets by mouth once dailyStart: 45-88-8181yhhx 1 tablet by mouth at bedtimesimvastatin (Zocor) 40 MG tablet Take 40 mg by mouth at bedtime 12/04/2022 ActiveStart: 02-09-2021 End: 40-76-7788mldq 1 tablet by mouth once dailySimvastatin 20 mg Tablet Discontinued 20 MG PO Daily February 09, 2021 12:00am April 30, 2024 11:27am traMADol hydrochloride 50 mg oral tablet (3 sources)Opioid AgonistStart: 64-45-0978hefb 1 tablet by mouth twice daily as neededvarenicline 1 mg oral tablet (20 sources)Partial Cholinergic Nicotinic AgonistStart: 61-24-7787wwfr 1 tablet by mouth twice dailyVarenicline Tartrate 1 MG 1 tablet after eating with a full glass of water Orally Twice a day for 30 days To fill after completing starter pack Nov, ActiveStart: 12-57-4560Zojqrredqdd Tartrate (Starter) 0.5 MG X 11 & 1 MG X 42 as directed Orally as directed for 30 days Nov, Active Start: 79-16-6550qfxr 1 mg by mouth twice dailyVarenicline Tartrate 1 MG as directed Orally Twice a day for 30 day(s) To start after completing starter pack Mar, ActiveStart: 52-33-5895Snndcdmnste Tartrate 0.5 MG 1 tablet with food and water daily days 1-3 then increase to twice daily on days 4-7 Orally Once a day for 7 day(s) Sep, Not-TakingStart: 20-96-9987yyxq 1 tablet by mouth twice dailyVarenicline Tartrate 1 MG 1 tablet after eating with a full glass of water Orally Twice a day for 30 days Sep, Not-Takingvitamin b12 2.5 mg oral tablet (20 sources)Vitamin M41Zaocq: 16-97-2698jtrudylsbbhjil (Vitamin B-12) 2500 MCG tablet 11/14/2023 ActiveStart: 95-12-3979zxsv 1 capsule by mouth once daily Start: 02-09-2021 End: 70-44-8903vsrc 1 tablet by mouth once dailyCyanocobalamin (Vitamin B-12) (Vitamin B-12) 1,000 mcg Tablet Discontinued 1000 MCG PO Daily February 09, 2021 12:00am December 17, 2021 5:58amRA Vitamin B-12 Not-TakingRA Vitamin B-12 Active Completed/Discontinued Medications MedicationDrug Class(es)DatesSig (Normalized)Sig (Original)acetaminophen 325 mg oral tablet (20 sources)Start: 12-13-2021 End: 39-07-1000cpvb 1-3 tablets by mouth every six hours as needed for pain Acetaminophen 325 mg Tablet Discontinued 650 MG PO Every 6 hours as needed for Pain Scale 1 - 3 or fever December 13, 2021 12:00am December 17, 2021 5:59am Start: 12-13-2021 End: 99-83-1807zpbp 650 mg by mouth every six hoursAcetaminophen Discontinued 650 MG PO Every 6 hours December 13, 2021 12:00am December 17, 2021 5:59am Admelog (9 sources)Admelog Not-TakingAdmelog Activeamiodarone hydrochloride 200 mg oral tablet (20 sources)AntiarrhythmicStart: 10-07-2023 End: 43-41-1763ouqi 1 tablet by mouth twice dailyAmiodarone 200 mg tablet Discontinued 200 MG PO Twice daily November 04, 2023 12:00am April 14, 2024 10:39amamoxicillin 875 mg / clavulanate 125 mg oral tablet (20 sources)Penicillin-class AntibacterialStart: 12-15-2024 End: 70-56-1971epli 1 tablet by mouth twice dailyAmoxicillin-Pot Clavulanate 875-125 mg tablet Discontinued 1 TAB PO Twice daily December 15, 2024 12:00am January 05, 2025 1:40pmStart: 01-15-2024 End: 39-05-6813Zumezxzgjoi-Pot Clavulanate 875-125 mg tablet Discontinued TAB PO January 15, 2024 12:00am April 14, 2024 10:39am24 hr buPROPion hydrochloride 150 mg extended release oral tablet (20 sources)AminoketoneStart: 09-16-2024 End: 64-73-7813zgzt 1 tablet by mouth once daily in the morningBupropion Hcl 150 mg tablet extended release 24 hr Discontinued 0 .ROUTE .COMPLEX September 160:37am January 05, 2025 1:40pm TAKE 1 TABLET BY MOUTH EVERY MORNING Start: 50-34-1500inqs 1 tablet by mouth once daily in the morningBupropion Hcl 150 mg tablet extended release 24 hr Active 0 .ROUTE .COMPLEX September 16, 2024 10:37am TAKE 1 TABLET BY MOUTH EVERY MORNINGStart: 08-25-2024 End: 30-61-6820gacx 1 tablet by mouth once daily in the morningBupropion Hcl 150 mg tablet extended release 24 hr Discontinued 150 MG PO Every morning August 25, 2024 12:00am September 16, 2024 10:38amStart: 59-77-0693vflb 1 tablet by mouth every twenty-four hoursbuPROPion HCl ER (XL) 300 MG 1 tablet in the morning Orally Once a day for 90 day(s) Jul, ActivebuPROPion HCl ER (XL) 150 MG take 1 tablet by mouth every morning for 3 days for 3 DCed Activecefuroxime 500 mg oral tablet (20 sources)Cephalosporin AntibacterialStart: 04-30-2024 End: 30-85-0533dqnj 1 tablet by mouth twice dailyCefuroxime Axetil 500 mg tablet Discontinued 500 MG PO Twice daily 14 7 Keyla 2nd, 2025 1:00am August 20, 2024 10:10amStart: 12-13-2021 End: 62-78-2839ddht 1 tablet by mouth twice dailyCefuroxime Axetil 500 mg tablet Discontinued 500 MG PO Twice daily 6 December 13, 2021 12:00am October 10, 2022 12:16pmStart: 95-96-6194xxpr 500 mg by mouth twice dailyCefuroxime Axetil Active 500 MG PO Twice daily 6 December 13, 2021 12:00amStart: 31-42-6993atyr 500 mg by mouth twice dailyCefuroxime Axetil Active 500 MG PO Twice daily 6 December 13, 2021 12:00amcephalexin 500 mg oral capsule (13 sources)Cephalosporin AntibacterialStart: 07-10-2024 End: 00-08-5173jsou 1 capsule by mouth every eight hoursCephalexin 500 mg capsule Discontinued 500 MG PO Every 8 hours July 10, 2024 12:00am July 22, 2024 11:18amcyclobenzaprine hydrochloride 10 mg oral tablet (20 sources)Muscle RelaxantStart: 05-15-2024 End: 63-44-6207wkcd 1-2 tablets by mouth at bedtimecyclobenzaprine (Flexeril) 10 MG tablet Indications: Cervical paraspinal muscle spasm , Lumbar paraspinal muscle spasm TAKE 1 TO 2 TABLETS BY MOUTH AT BEDTIME 60 tablet 3 05/15/2024 07/21/2024 DiscontinuedStart: 82-32-6863Vkjdrkqzsbtapyr Active MG PO January 15, 2024 12:00amStart: 01-07-2024 End: 57-87-1394Hvtmaijlfhmsoxz 10 mg tablet Discontinued 10 MG PO As Directed as needed for muscle spasm 2023 12:00am April 30, 2024 11:27am dapagliflozin 10 mg oral tablet (4 sources)Sodium-Glucose Cotransporter 2 InhibitorStart: 77-55-3462otpz 1 tablet by mouth every twenty-four hoursFarxiga 10 MG 1 tablet Orally Once a day for 30 day(s) Apr, Not-Takingdoxycycline hyclate 100 mg oral tablet (20 sources)Tetracycline-class DrugStart: 12-15-2024 End: 87-62-2676kswp 1 tablet by mouth twice dailyDoxycycline Hyclate 100 mg tablet Discontinued 100 MG PO Twice daily December 15, 2024 12:00am January 05, 2025 1:40pmStart: 11-16-2024 End: 09-35-7447fxvv 1 tablet by mouth in the morningdoxycycline [...] 20 tablet 11/16/2024 11/26/2024 ActiveStart: 02-06-2022 End: 72-64-2217zrai 1 capsule by mouth once dailydoxycycline (Vibramycin) 100 MG capsule take 1 capsule by mouth once daily for 10 days 02/06/2022 01/07/2024 Discontinuedflash glucose sensor (FreeStyle Brent 14 Day Sensor) (20 sources)Start: 06-12-2023 End: 99-36-0720ysbcg glucose sensor (FreeStyle Brent 14 Day Sensor) Discontinued .Route June 12, 2023 12:00am July 22, 2023 6:32amStart: 06-12-2023 End: 86-32-1908npzdk glucose sensor (FreeStyle Brent 14 Day Sensor) Discontinued .Route June 12, 2023 12:00am November 09, 2023 9:09pmStart: 06-12-2023 End: 88-09-8020kdmhd glucose sensor (FreeStyle Brent 14 Day Sensor) Discontinued .Route June 12, 2023 1:00amJu2023 10:09pmStart: 06-12-2023 End: 63-41-9195qztyp glucose sensor (FreeStyle Brent 14 Day Sensor) Discontinued .Route June 12, 2023 1:00amMarc 2023 7:32amStart: 56-26-1058braik glucose sensor (FreeStyle Brent 14 Day Sensor) Active .Route June 12, 2023 1:00amStart: 35-47-8300lfrzv glucose sensor (FreeStyle Brent 14 Day Sensor) Active .Route June 12, 2023 12:00amStart: 98-83-3532ompwb glucose sensor (FreeStyle Brent 14 Day Sensor) Active .ROUTE June 12, 2023 12:00am Handicap placards as directed (13 sources)Start: 68-15-7580Hvlmtwqx placards as directed as directed as directed as directed To 5 years after issue date Nov, Active3 ml insulin lispro 100 unt/ml pen injector (20 sources)Insulin AnalogStart: 53-66-5334Ofwmvvm Lispro Active 0 SUBCUT Before meals and at bedtime December 23, 2023 4:11pm subcutaneously before meals and at bedtime; 1:50 corrective scale (expect up to 20 units/day)Start: 06-12-2023 End: 68-90-9572Wornoxk Lispro Discontinued 0 SUBCUT Before meals and at bedtime June 12, 2023 9:05am December 23, 2023 4:14pm subcutaneously before meals and at bedtime; 1:50 corrective scale (expect up to 20units/day)Start: 95-12-5480Iycwfxd Lispro Active 0 SUBCUT Before meals and at bedtime June 12, 2023 9:05am subcutaneously before meals and at bedtime; 1:50 corrective scale (expect up to 20 units/day)Start: 11-03-6305Mhpjizy Lispro Active 0 SUBCUT Before meals and at bedtime June 12, 2023 8:05am subcutaneously before meals and at bedtime; 1:50 corrective scale (expect up to 20 units/day)Start: 10-10-2022 End: 39-23-0544ervoel 1 dose by subcutaneous injection at bedtimeInsulin Lispro Discontinued sliding scale dose SUBCUT Before meals and at bedtime October 10, 2022 12:00am June 12, 2023 9:13amStart: 10-10-2022 End: 10-68-1211uteayn 1 dose by subcutaneous injection at bedtimeInsulin Lispro Discontinued sliding scale dose SUBCUT Before meals and at bedtime October 09, 2022 11:00pm June 12, 2023 8:13amStart: 26-96-7087uqcsnu 1 dose by subcutaneous injection at bedtimeInsulin Lispro Active sliding scale dose SUBCUT Before meals and at bedtime October 09, 2022 11:00pmStart: 02-09-2021 End: 13-04-2206Kbydcrr Lispro 100 unit/mL insulin pen Discontinued 0 SUBCUT Before meals and at bedtime June 12, 2023 9:05am December 23, 2023 4:14pm subcutaneously before meals and at bedtime; 1:50 corrective scale (expect up to 20 units/day)HumaLOG KwikPen 100 UNIT/ML 1:50 corrective scale Subcutaneous ac tid Not-TakingInsulin Lispro (Admelog Solostar U-100 Insulin) 100 unit/mL Insulin Pen (20 sources)Start: 02-09-2021 End: 87-86-2493Vxrista Lispro (Admelog Solostar U-100 Insulin) 100 unit/mL Insulin Pen Discontinued 1 sliding scale dose SUBCUT Use as Directed February 09, 2021 12:00am October 10, 2022 12:17pmStart: 02-09-2021 End: 55-26-8454Cendaur Lispro (Admelog Solostar U-100 Insulin) 100 unit/mL Insulin Pen Discontinued 1 sliding scale dose SUBCUT Use as Directed February 08, 2021 11:00pm October 10, 2022 11:17amInsulin Lispro 100 unit/mL Insulin Pen (14 sources)Start: 10-10-2022 End: 41-32-3277qarzbh 1 dose by subcutaneous injection at bedtimeInsulin Lispro 100 unit/mL Insulin Pen Discontinued sliding scale dose SUBCUT Before meals and at bedtime October 10, 2022 12:00am June 12, 2023 9:13amStart: 10-10-2022 End: 39-58-8312jlaoew 1 dose by subcutaneous injection at bedtimeInsulin Lispro 100 unit/mL Insulin Pen Discontinued sliding scale dose SUBCUT Before meals and at bedtime October 09, 2022 11:00pm June 12, 2023 8:13amL. acidophilus/Bifid. animalis (Daily Probiotic) (6 sources)Start: 08-25-2024 End: 85-86-4166exdd 1 tablet by mouth once dailyL. acidophilus/Bifid. animalis (Daily Probiotic) Discontinued 1 TAB PO Daily August 25, 2024 12:00am December 15, 2024 1:58pmStart: 08-25-2024L. acidophilus/Bifid. animalis (Daily Probiotic) Active PO August 25, 2024 12:00amlidocaine 0.05 mg/mg topical ointment (20 sources)Antiarrhythmic, Amide Local AnestheticStart: 04-28-2024 End: 29-31-5081Jqslwmjom 5 % ointment Discontinued 1 APPLIC TOPICAL Daily as needed for pain April 28, 2024 1:00am August 20, 2024 10:11amStart: 01-30-2024 End: 54-69-6112jfefchoyu (Xylocaine) 5 % ointment Indications: Ulcer of right foot, limited to breakdown of skin (CMS/HCC) Apply topically Daily Use as needed over the wound sites with dressing changes. 50 g 2 01/30/2024 07/21/2024 DiscontinuedStart: 01-03-2024 End: 39-62-3376falnazfzp (Xylocaine) 1 % injection 6 mgStart: 01-03-2024 End: mg (0.6 mL), Injection, Once, On Sat01/03/24 at 1745, For 1 dose, Added to dexamethasone or ketorolac for therapeutic injection.lisinopril 5 mg oral tablet (20 sources)Angiotensin Converting Enzyme InhibitorStart: 09-09-2023 End: 98-33-2307zvby 1 tablet by mouth once dailyLisinopril 5 mg tablet Discontinued 0 .ROUTE .COMPLEX 90 September 09, 2023 9:36am November 05, 2023 12:26pm take 1 tablet by mouth once dailyStart: 06-12-2023 End: 91-24-1750tppm 2.5 mg by mouth once dailyLisinopril 10 mg tablet Discontinued 2.5 MG PO Daily June 12, 2023 9:09am June 12, 2023 4:42pmStart: 06-12-2023 End: 60-38-9193fyec 2.5 mg by mouth once dailyLisinopril Discontinued 2.5 MG PO Daily June 12, 2023 9:09am June 12, 2023 4:42pmStart: 06-12-2023 End: 48-71-4984fjdy 1 tablet by mouth once dailyLisinopril 2.5 mg tablet Discontinued 2.5 MG PO Daily June 12, 2023 1:00am June 19, 2023 6:17pmStart: 12-04-2022 End: 91-80-2278ivvy 1 tablet by mouth once dailyLisinopril 5 mg tablet Discontinued 5 MG PO Daily September 09, 2023 12:00am September 09, 2023 9:36amStart: 02-09-2021 End: 80-77-0031tuce 5 mg by mouth once dailyLisinopril 10 mg Tablet Discontinued 5 MG PO Daily February 09, 2021 12:00am June 12, 2023 9:13amStart: 02-09-2021 End: 13-34-2390onko 5 mg by mouth once dailyLisinopril Discontinued 5 MG PO Daily February 09, 2021 12:00am June 12, 2023 9:13amStart: 18-30-3933utmw 10 mg by mouth once dailyLisinopril Active 10 MG PO Daily February 09, 2021 12:00amtake 1 tablet by mouth every twenty-four hoursLisinopril 40 MG 1 tablet Orally Once a day Activeloratadine 10 mg oral tablet (20 sources)Start: 02-09-2021 End: 77-88-8633gtpb 1 tablet by mouth once dailyLoratadine 10 mg Tablet Discontinued 10 MG PO Daily February 09, 2021 12:00am October 10, 2022 12:16pm Loratadine PRN ActiveLoratadine prn ActiveLoratadine Activemetoclopramide 10 mg oral tablet (20 sources)Dopamine-2 Receptor AntagonistStart: 06-12-2023 End: 02-38-7617epxb 1 tablet by mouth once daily at bedtimeMetoclopramide Hcl 10 mg tablet Discontinued 10 MG PO Daily at bedtime June 12, 2023 1:00am [facility] 2023 6:17pmStart: 02-09-2021 End: 16-37-6857sgdb 1 tablet by mouth once dailyMetoclopramide Hcl 10 mg Tablet Discontinued 10 MG PO Daily February 09, 2021 12:00am October 10, 2022 12:15pm take 1 tablet by mouth at bedtimeMetoclopramide HCl 10 MG 1 tablet Orally at bedtime Gdkjqr14 hr metoprolol succinate 50 mg extended release oral tablet (20 sources)beta-Adrenergic BlockerStart: 10-30-2023 End: 11-28-4294auqe 1 tablet by mouth three times dailyMetoprolol Succinate 50 mg Tablet Extended Release 24 Hr Discontinued 50 MG PO Three times daily November 04, 2023 12:00am April 14, 2024 10:40amStart: 09-14-2023 End: 33-91-6890akzi 1 tablet by mouth every twenty-four hours in the morning metoprolol succinate XL (Toprol-XL) 50 MG 24 hr tablet Take 50 mg by mouth in the morning and 50 mgin the evening. 09/14/2023 04/07/2024 DiscontinuedStart: 09-14-2023 End: 28-51-3354rnbd 1 tablet by mouth once dailyMetoprolol Succinate 50 mg Tablet Extended Release 24 Hr Discontinued 50 MG PO Daily September 14, 2023 12:00am November 04, 2023 1:04pmMiscellaneous Medical Supply misc (20 sources)Start: 11-26-2023 End: 40-60-2185Dfeatehvfidca Medical Supply misc Discontinued 0 .Route 1 November 26, 2023 2:24pm April 28, 2024 12:40pm Hospital BedStart: 11-26-2023 End: 25-19-9296Jutpfjcslrzku Medical Supply misc Discontinued 0 .Route 1 November 26, 2023 1:24pm April 28, 2024 11:40am [facility] BedStart: 11-26-2023 End: 28-62-2089Mlxlperpuazyy Medical Supply misc Discontinued 0 .Route 1 November 26, 2023 2:22pm November 26, 2023 2:25pm As directedStart: 11-26-2023 End: 39-58-6749Cahxaalryzued Medical Supply misc Discontinued 0 .Route 1 November 26, 2023 1:22pm November 26, 2023 1:25pm As directedStart: 2023 End: 37-31-3935Txbatnaevnmdh Medical Supply misc Discontinued 0 .Route 1 2023 2:20pm November 26, 2023 2:23pm As directedStart: 2023 End: 59-51-7796Ysoqfmjaswabx Medical Supply misc Discontinued 0 .Route 1 2023 1:20pm November 26, 2023 1:23pm As directedStart: 09-30-2023 End: 16-33-2175Gexbrmcsnatur [facility] misc Discontinued 0 .Route 1 September 30, 2023 8:33am 2023 2:21pm As directedStart: 09-30-2023 End: 11-23-0250Fnexbslxxndlq Medical Supply misc Discontinued 0 .Route 1 September 30, 2023 7:33am 2023 1:21pm As directedStart: 09-17-2023 End: 33-00-3446Pludhlhafgsov Medical Supply misc Discontinued 0 .Route 1 September 17, 2023 12:00am September 30, 2023 8:33am As directedStart: 09-17-2023 End: 36-73-0440Gdsafgsaxxnfb Medical Supply misc Discontinued 0 .Route 1 September 16, 2023 11:00pm September 30, 2023 7:33am As directedMultivitamin Tablet (20 sources)Start: 02-09-2021 End: 40-75-3878wrbh 1 tablet by mouth twice dailyMultivitamin Tablet Discontinued 1 TAB PO Twice daily February 09, 2021 12:00am June 12, 2023 9:13amStart: 02-09-2021 End: 99-49-6433mpvn 1 tablet by mouth twice dailyMultivitamin Tablet Discontinued 1 TAB PO Twice daily February 08, 2021 11:00pm June 12, 2023 8:13am24 hr nicotine 0.875 mg/hr transdermal system (17 sources)Cholinergic Nicotinic AgonistStart: 05-07-2024 End: 95-28-5054vkcaz 1 dose transdermal route every twenty-four hoursNicotine 21 mg/24 hr patch 24 hour Discontinued 1 PATCH TRANSDERML Daily May 07, 2024 1:00am August 20, 2024 10:11ampen needle, diabetic (Sure-Fine [place]) (20 sources)Start: 06-12-2023 End: 02-27-2562gwp needle, diabetic (Sure-Fine [place]) Discontinued .Route June 12, 2023 1:00am January 05, 2025 1:32pmStart: 16-17-9409vmr needle, diabetic (Sure-Fine [place]) Active .Route June 12, 2023 1:00amStart: 13-78-5562jjd needle, diabetic (Sure-Fine [place]) Active .Route June 12, 2023 12:00amStart: 42-23-0859uhz needle, diabetic (Sure- Fine [place]) Active .ROUTE June 12, 2023 12:00ampioglitazone 15 mg oral tablet (20 sources)Peroxisome Proliferator Receptor alpha Agonist, Peroxisome Proliferator Receptor gamma Agonist, ThiazolidinedioneStart: 02-09-2021 End: 28-48-0590rtoo 1 tablet by mouth once dailyPioglitazone 15 mg Tablet Discontinued 15 MG PO Daily February 09, 2021 12:00am April 28, 2024 1:57pm0.25 mg, 0.5 mg dose 1.5 ml semaglutide 1.34 mg/ml pen injector (20 sources)Start: 02-09-2021 End: 45-97-1071Peoporbmipe (Ozempic) 0.25 mg or 0.5 mg(2 mg/1.5 mL) Pen Injector Discontinued 1 MG SUBCUT every week February 09, 2021 12:00am April 28, 2024 12:39pm Sundaystart: 63-13-0820Cghkbfvenfx (Ozempic) 0.25 mg or 0.5 mg(2 mg/1.5 mL) Pen Injector Active 0.5 MG SUBCUT every week February 09, 2021 12:00am SaturdayOzempic (0.25 or 0.5 MG/DOSE) 2 MG/1.5ML inject 0.5 milligrams subcutaneously every week for 84 ActiveSemaglutide (20 sources)Start: 04-28-2024 End: 16-30-0217cdwztv 1 mg by subcutaneous injection every weekSemaglutide (Ozempic) 1 mg/dose (4 mg/3 mL) pen injector Discontinued 1 MG SUBCUT every week April 28, 2024 1:00am April 28, 2024 1:57pmStart: 04-28-2024 End: 10-89-4243wigmwg 1 mg by subcutaneous injection every weekSemaglutide (Ozempic) 1 mg/dose (4 mg/3 mL) pen injector Discontinued 1 MG SUBCUT every week April 28, 2024 12:00am April 28, 2024 12:57pmtemazepam 30 mg oral capsule (20 sources)BenzodiazepineStart: 10-10-2022 End: 28-51-9663ayfs 1 capsule by mouth once dailyTemazepam 30 mg capsule Discontinued 30 MG PO Daily September 17, 2023 1:56pm November 08, 2023 4:43pm Start: 23-53-8396zitt 1 capsule by mouth every twenty-four hoursTemazepam 30 MG 1 capsule at bedtime as needed Orally Once a day for 30 days Jul, Active Start: 89-14-6405bbze 1 capsule by mouth every twenty-four hoursTemazepam 30 MG 1 capsule at bedtime as needed Orally Once a day for 30 days Jun, Active Start: 48-38-1929fltl 1 capsule by mouth every twenty-four hoursTemazepam 30 MG 1 capsule at bedtime as needed Orally Once a day for 30 days May, Active Start: 21-38-8547yssf 1 capsule by mouth every twenty-four hoursTemazepam 15 MG 1 capsule at bedtime as needed Orally Once a day for 30 days Jun, Active Start: 04-48-5780fuqn 1 capsule by mouth every twenty-four hoursTemazepam 22.5 MG 1 capsule at bedtime as needed Orally Once a day for 30 days Apr, ActiveStart: 02-09-2021 End: 04-03-2284rkas 1 capsule by mouth once daily at bedtimeTemazepam 30 mg Capsule Discontinued 30 MG PO Daily at bedtime February 09, 2021 12:00am December 17, 2021 6:00amtake 1 capsule by mouth every twenty-four hoursTemazepam 15 MG 1 capsule at bedtime as needed Orally Once a day ActiveVitamin B12 1000 MCG (4 sources)Start: 01-83-5190idpj 1 tablet by mouth once dailyVitamin B12 1000 MCG 1 tablet Orally Once a day for 90 days Jun, Not-TakingStart: 05-60-6435wgav 1 tablet by mouth once dailyVitamin B12 1000 MCG 1 tablet Orally Once a day for 90 days Jun, Active Problems Active Problems Problem ClassificationProblemDateDocumented DateEpisodic/ChronicAbdominal pain (20 sources)Abdominal pain; Translations: [Unspecified abdominal pain]12-17-2021 EpisodicAcquired foot deformities (2 sources)Deformity of toe; Translations: [Acquired deformities of toe(s), unspecified, right foot]82-82-1373RiyspksuDibojycmkzzurz/social admission (20 sources)Dietary counseling and surveillance; Translations: [Tobacco abuse counseling]Onset: 03-27-2021 Resolved: 60-02-2195SgespqkgCahruzts reactions (10 sources)Allergy to honey bee venom; Translations: [Bee allergy status] 25-47-3138VpgmmfxwZpyjxsl tract disease (20 sources)Biliary calculus; Translations: [Calculus of gallbladder without cholecystitis without obstruction]31-36-9984MfpxpmacCmsvvzc dysrhythmias (20 sources)Atrial flutter; Translations: [Unspecified atrial flutter]Onset: 140758-76-3416DjfvasmTgrewou dysrhythmias (20 sources)Tachycardia; Translations: [Tachycardia, unspecified]09-12-2023 EpisodicChronic kidney disease (20 sources)Chronic kidney disease stage 2; Translations: [Chronic kidney disease, stage 2 (mild)]47-86-6828TrwqgqzAqbfvvl ulcer of skin (20 sources)Non-pressure chronic ulcer of other part of right foot limited to breakdown of skin; Translations: [Ulcer of other part of foot]Onset: 11-16-2024 57-93-7835ObklvaiYbrd; stupor; and brain damage (9 sources)Daytime somnolence; Translations: [Somnolence]47-26-9164Ykzcdfpq Complications of surgical procedures or medical care (11 sources)Complication of ventilation qrdsufo21-46-8843ElbdvbrmIgnosdfmjp heart failure; nonhypertensive (11 sources)Congestive heart failure; Translations: [Heart failure, unspecified] 86-56-5353SgxdkdoCvvcnsyn atherosclerosis and other heart disease (1 source)Coronary atherosclerosis and other heart diseaseOnset: 05-16-2017 Diabetes mellitus with complications (20 sources)Polyneuropathy due to type 2 diabetes mellitus; Translations: [Type 2 diabetes mellitus with diabetic polyneuropathy]Onset: 03-27-2021 Resolved: 95-96-2294AodovcbSxiqqyhb mellitus with complications (1 source)Diabetes mellitus with complicationsOnset: 35-95-6495Saifzubv mellitus without complication (20 sources)Type 2 diabetes mellitus; Translations: [Type 2 diabetes mellitus without complications]Onset: 393812-57-9751FjhallvGpbgnjeif congenital anomalies (20 sources)Enlargement of tongue; Translations: [Macroglossia]Onset: 10-29-2023 83-40-0877VhcrzhrRnktwobf of white blood cells (20 sources)Granulocytosis; Translations: [Other elevated white blood cell count]Onset: 784943-99-6856ApooghoLzehrogis of lipid metabolism (20 sources)Hyperlipidemia; Translations: [Hyperlipidemia, unspecified]Onset: 03-27-2021 Resolved: 21-31-0244MdpphkpHrxfskouvt disorders (18 sources)Stricture of esophagus; Translations: [Esophageal obstruction] ChronicEsophageal disorders (20 sources)Achalasia of esophagus; Translations: [Achalasia of cardia] 80-87-1913VljldmpnPgemnilair disorders (1 source)Esophageal disordersOnset: 46-56-7173Kcfnwbypk hypertension (20 sources)Hypertensive disorder; Translations: [Essential (primary) hypertension]Onset: 03-27-2021 Resolved: 71-54-1737HhvxsxwYvbmntkgr hypertension (1 source)Essential hypertensionOnset: 05-00-1576Hbzgclp and fatigue (20 sources)Fatigue; Translations: [Chronic fatigue, unspecified]Chronic Miscellaneous mental health disorders (20 sources)Primary insomnia; Translations: [Primary insomnia]ChronicMood disorders (20 sources)Major depressive disorder; Translations: [Major depressive disorder, single episode, unspecified]25-15-6589SgfswvdKlytdhojsxe chest pain (20 sources)Chest pain; Translations: [Chest pain, unspecified]09-12-2023 EpisodicNutritional deficiencies (20 sources)Vitamin D deficiency; Translations: [Vitamin D deficiency, unspecified]ChronicOpen wounds of extremities (20 sources)Injury of foot; Translations: [Unspecified open wound, unspecified foot, initial encounter]33-89-2811HlxoxhgeMiacq acquired deformities (2 sources)Unspecified acquired deformity of right lower leg; Translations: [Unspecified deformity of ankle and foot, acquired]78-20-7809RaxxkxyaGzumg aftercare (20 sources)Long-term current use of insulin; 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]03-38-4284ZhgyjhrfFuzlm aftercare (12 sources)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; Translations: [Long-term (current) use of insulin]Onset: 03-27-2021 Resolved: 27-71-2971LdjqlyltSetnv aftercare (20 sources)Post-discharge follow-up; Translations: [Encounter for follow-up examination after completed treatment for conditions other than malignant neoplasm]11-97-2594SpyqndvjFpnwa aftercare (17 sources)Encounter for follow-up examination after completed treatment for conditions other than malignant neoplasm; Translations: [Other follow-up examination]66-79-7313UociownmYetoi circulatory disease (16 sources)Low blood pressure; Translations: [Hypotension, unspecified] 99-28-3482EzfeicrqMfloe circulatory disease (5 sources)Hypotension, unspecified; Translations: [Hypotension, unspecified] 63-51-8993FqdacoqaCgsfg connective tissue disease (20 sources)Neurogenic pain; Translations: [Neuralgia and neuritis, unspecified] Onset: 278055-38-4108CyqejqsoLocvg connective tissue disease (4 sources)Pain in left lower limb; Translations: [Pain in left leg]10-06-2024 EpisodicOther connective tissue disease (4 sources)Pain in right lower limb; Translations: [Pain in right leg]10-06-2024 EpisodicOther connective tissue disease (1 source)Weakness of hand; Translations: [Other symptoms and signs involving the musculoskeletal system]09-06-6903JhpvaeodWaqww female genital disorders (4 sources)Vaginal lesion; Translations: [Other specified noninflammatory disorders of vagina]79-79-4061CfbxetoiGquvn gastrointestinal disorders (20 sources)Dysphagia; Translations: [Dysphagia, unspecified]37-07-7857Dhwiwtqx Other gastrointestinal disorders (15 sources)Stricture of esophagus; Translations: [Personal history of other diseases of the digestive system]EpisodicOther gastrointestinal disorders (16 sources)Incontinence of feces; Translations: [Full incontinence of feces] 35-18-8963DwsvhwntWeqxp gastrointestinal disorders (5 sources)Full incontinence of feces; Translations: [Full incontinence of feces]41-94-3090MefdjofdTplra hematologic conditions (20 sources)Secondary polycythemia; 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] 82-75-1302ScztvgeoEzxsb hematologic conditions (4 sources)Lesion of spleen; Translations: [Other diseases of spleen]01-12-2025 EpisodicOther injuries and conditions due to external causes (9 sources)Unspecified injury of left foot, initial encounter; Translations: [Injury of foot, left]EpisodicOther nervous system disorders (20 sources)Peripheral nerve disease ; Translations: [Polyneuropathy, unspecified]84-34-6262YrosykmLkrzu nervous system disorders (20 sources)Polyneuropathy, unspecified; Translations: [Unspecified hereditary and idiopathic peripheral neuropathy]Onset: 03-27-2021 Resolved: 37-02-2710JvcneroKvuos nervous system disorders (20 sources)Walking disability; Translations: [Difficulty in walking, not elsewhere classified]34-34-2711SurqepmAwkcl nervous system disorders (12 sources)Difficulty in walking, not elsewhere classified; Translations: [Difficulty in walking]71-51-5970UkipfkfYzrig nervous system disorders (20 sources)Bilateral carpal tunnel syndrome; Translations: [Carpal tunnel syndrome, bilateral upper limbs]Onset: 423154-18-6303RdmjxdoZqxbd nervous system disorders (20 sources)Polyneuropathy; Translations: [Polyneuropathy, unspecified]Onset: 957552-59-3576WllmcpzYvilw nervous system disorders (20 sources)Ulnar nerve entrapment at wrist; Translations: [Lesion of ulnar nerve, unspecified upper limb]Onset: 437571-53-5417AnjmfbpNdhyn nervous system disorders (5 sources)Numbness; Translations: [Anesthesia of skin]75-70-1467ZjoistolIjmaz nervous system disorders (1 source)Paresthesia; Translations: [Paresthesia of skin]94-15-1944Jwgzkpsr Other nutritional; endocrine; and metabolic disorders (20 sources)Obese class I; Translations: [Body mass index (BMI) 33.0-33.9, adult]ChronicOther nutritional; endocrine; and metabolic disorders (20 sources)Body mass index 30+ - obesity; Translations: [Body mass index (BMI) 32.0-32.9, adult]Onset: 079085-93-5890GbhxcwmQafuv nutritional; endocrine; and metabolic disorders (3 sources)Body mass index (BMI) 30.0-30.9, adultOnset: 03-27-2021 Resolved: 18-63-0894RdimxcgOcayh nutritional; endocrine; and metabolic disorders (20 sources)Obese class II; Translations: [Body mass index (BMI) 35.0-35.9, adult]ChronicOther nutritional; endocrine; and metabolic disorders (1 source)Body mass index (BMI) 35.0-35.9, adultChronicOther nutritional; endocrine; and metabolic disorders (20 sources)Hypomagnesemia; Translations: [Hypomagnesemia]10-83-2434HjqqavwQfzbb nutritional; endocrine; and metabolic disorders (20 sources)Hypomagnesemia; Translations: [Disorders of magnesium metabolism] Onset: 857666-67-7220LurxuakDxnfg nutritional; endocrine; and metabolic disorders (16 sources)Body mass index (BMI) 32.0-32.9, adult; Translations: [Body Mass Index 32.0-32.9, adult]Onset: 416225-67-9798RpojtfsDbzxj nutritional; endocrine; and metabolic disorders (2 sources)Obesity, unspecified; Translations: [Obesity, unspecified]Onset: 55-65-1486HkolyjaIhrtb nutritional; endocrine; and metabolic disorders (4 sources)Obesity; Translations: [Class 1 obesity with body mass index (BMI) of 30.0 to 30.9 in adult]55-81-9157NqiesobUukja nutritional; endocrine; and metabolic disorders (20 sources)Body mass index (BMI) 28.0-28.9, adult; Translations: [Body Mass Index 28.0-28.9, adult]Onset: 01-09-2022 Resolved: 42-07-2940ZdrmlylgKjgkw nutritional; endocrine; and metabolic disorders (1 source)Body mass index (BMI) 29.0-29.9, adultEpisodicOther nutritional; endocrine; and metabolic disorders (20 sources)Overweight in adulthood with body mass index of 25 or more but less than 30; Translations: [Body mass index (BMI) 28.0-28.9, adult]Onset: 10-07-2023 Resolved: 081277-07-8667IlppukvtUgnvh screening for suspected conditions (not mental disorders or infectious disease) (1 source)Ultrasound scan abnormal; Translations: [Abnormal findings on diagnostic imaging of other specifiedbody structures]53-08-6090WoycipbLhqbe screening for suspected conditions (not mental disorders or infectious disease) (20 sources)Thyroid function tests abnormal; Translations: [Other specified abnormal findings of blood chemistry]Onset: 937253-93-3446GvbbeulzBemit skin disorders (10 sources)Lesion of skin of face; Translations: [Disorder of the skin and subcutaneous tissue, unspecified]27-70-0213FbzudruuZbwsf skin disorders (3 sources)Disorder of the skin and subcutaneous tissue, unspecified; Translations: [Unspecified disorder of skin and subcutaneous tissue]08-25-2024 EpisodicPeri-; endo-; and myocarditis; cardiomyopathy (except that caused by tuberculosis or sexually transmitted disease) (20 sources)Cardiomyopathy; Translations: [Cardiomyopathy, unspecified]Onset: 157163-12-7342UmiwsxhWddgvalidl and visceral atherosclerosis (20 sources)Peripheral vascular disease, unspecified; Translations: [Peripheral vascular disease]Onset: 01-25-2017 Resolved: 46-53-0930AdldfzxGgnfqlkf codes; unclassified (20 sources)Sleep apnea; Translations: [Sleep apnea, unspecified]ChronicResidual codes; unclassified (1 source)Sleep apnea, unspecifiedOnset: 07-03-2021 Resolved: 49-77-1534RjiqgiyXfmxoqvz codes; unclassified (2 sources)Obstructive sleep apnea (adult) (pediatric); Translations: [Obstructive sleep apnea (adult)(pediatric)]Onset: hronic Residual codes; unclassified (20 sources)Insomnia; Translations: [Insomnia, unspecified]EpisodicResidual codes; unclassified (1 source)Asymptomatic menopausal stateEpisodicResidual codes; unclassified (16 sources)Sleep disorder; Translations: [Sleep disorder, unspecified] 74-27-7930WalhihgxMbolrtmd codes; unclassified (5 sources)Sleep disorder, unspecified; Translations: [Sleep disturbance, unspecified]53-13-1673QwkrfxldTgwoviem codes; unclassified (2 sources)At increased risk of emergency hospital admission; Translations: [Other specified personal risk factors, not elsewhere classified]11-23-2024 EpisodicResidual codes; unclassified (8 sources)Postmenopausal state; Translations: [Asymptomatic menopausal state] 07-19-9187WdezgskfNyvh and subcutaneous tissue infections (6 sources)Cellulitis of right foot; Translations: [Cellulitis of right lower limb]78-73-8269BkovatdcNppiwpbozlx; intervertebral disc disorders; other back problems (15 sources)Lumbar spondylosis; Translations: [Spondylosis without myelopathy or radiculopathy, lumbar region]65-77-4725PqghtovAisjtinya-related disorders (20 sources)Smoker; Translations: [Nicotine dependence, unspecified, uncomplicated]Onset: 54-06-1336GxwdyhfIzluaoolyjd injury; contusion (8 sources)Blister of foot; Translations: [Blister (nonthermal), right foot, subsequent encounter]32-74-9320XggjozlrXpiytyx disorders (20 sources)Hypothyroidism; Translations: [Hypothyroidism, unspecified]Onset: 475498-91-2254ZacdgghZtiziigmj cerebral ischemia (20 sources)Transient cerebral ischemia; Translations: [Transient cerebral ischemic attack, unspecified]Onset: 781265-08-9420UseaoceQsigahpceniq (3 sources)Dermatochalasis of left upper eyelid / H02.834(ICD-10)Onset: 28-51-7394Vafvjmmtskiz (1 source)Dermatochalasis of right upper eyelid / H02.831(ICD-10)Onset: 49-68-0085Itghuxyqwauh (1 source)Unspecified ptosis of bilateral eyelids / H02.403(ICD-10)Onset: 75-10-6954Inewdbvljfuq (1 source)Nicotine dependence, unspecified, uncomplicated / F17.200(ICD-10) Onset: 90-87-2273Iqtzonbpolos (1 source)retirement (current) use of aspirin / Z79.82(ICD-10)Onset: 05-16-2017 Unclassified (1 source)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 / Z79.84(ICD-10) Onset: 23-73-5010Dpkjazhktpbc (2 sources)Bilateral leg nmwoayht10-60-6140Oxostsy tract infections (20 sources)Emphysematous cystitis; Translations: [Other cystitis without hematuria]37-50-9428EghlfsheVyjkx infection (1 source)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; 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]Onset: 06-29-5090Kwdxwlxo Past or Other Problems Problem ClassificationProblemDateDocumented DateEpisodic/ChronicConditions associated with dizziness or vertigo (20 sources)Dizziness; Translations: [Dizziness and giddiness]Onset: 04-27-2024 21-01-8571FtrljsweC Codes: Adverse effects of medical drugs (20 sources)Alpha-tocopheryl adverse reaction; Translations: [Adverse effect of vitamins, initial encounter]Onset: 044102-88-7163YvfujokmZfllzlonamnye symptoms and ill-defined conditions (2 sources)Proteinuria, unspecifiedOnset: 03-27-2021 Resolved: 24-34-3715IelouviiOgywwomgtopnk and screening for infectious disease (20 sources)Anti-nuclear factor positive; Translations: [Other specified abnormal immunological findings in serum]Onset: 524251-72-6460Fbzccsnc Malaise and fatigue (20 sources)Asthenia; Translations: [Weakness]Onset: 127569-20-3541 EpisodicNutritional deficiencies (20 sources)Deficiency of other specified B group vitamins; Translations: [Cobalamin deficiency]Onset: 03-27-2021 Resolved: 16-12-3961NdjeexcaOmxaj aftercare (7 sources)Taking high risk medication; Translations: [Other fci (current) drug therapy]Onset: 11-13-2023 Resolved: 623632-15-4034QgixnafwQyatn connective tissue disease (1 source)Pain in right legOnset: 04-03-2021 Resolved: 28-01-1131TmndvdxcFoftg connective tissue disease (1 source)Pain in left legOnset: 04-03-2021 Resolved: 10-43-1771OuhiszigZsnfb connective tissue disease (20 sources)Spasm of cervical paraspinous muscle; Translations: [Other muscle spasm]Onset: 326520-94-4304HbcovaiaDmrdq connective tissue disease (20 sources)Muscle atrophy; Translations: [Muscle wasting and atrophy, not elsewhere classified, multiple sites]Onset: 473621-79-9562FewmedqnJjrsn connective tissue disease (20 sources)Pain in bilateral legs; Translations: [Pain in right leg]Onset: 807696-48-8069BybffcgtItjqo connective tissue disease (20 sources)Other symptoms and signs involving the musculoskeletal system; Translations: [Other musculoskeletalsymptoms referable to limbs]Onset: 326691-03-2461OrhfdxjkQvfug gastrointestinal disorders (5 sources)Dysphagia, unspecified; Translations: [Dysphagia, unspecified]Onset: 89-28-8197BkcrodhvHzqha hematologic conditions (15 sources)Secondary polycythemia; 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, secondary] Onset: 841924-21-7598RiizzmtgVvmni nervous system disorders (20 sources)Impaired cognition; Translations: [Other symptoms and signs involving cognitive functions and awareness]Onset: 461540-23-9002Toeovtrd Other skin disorders (1 source)Corns and callositiesOnset: 07-10-2021 Resolved: 81-70-7006QmgbrcztNvtmkxim codes; unclassified (20 sources)Obstructive sleep apnea syndrome; Translations: [Obstructive sleep apnea (adult) (pediatric)]Onset: 10-29-2023 Resolved: 943580-40-1886HpvuiuuOmkogips codes; unclassified (1 source)Insomnia, unspecifiedOnset: 05-08-2021 Resolved: 13-40-1377YrdrbcwjVwscrxnhegp; intervertebral disc disorders; other back problems (20 sources)Spasm of muscle of lower back; Translations: [Muscle spasm of back] Onset: 817313-61-9576TkxsqievSsxcntwsmrhc (1 source)Dermatochalasis of left upper eyelid; Translations: [Dermatochalasis of left upper eyelid]Onset: 07-29-6260Vnhhreunvbgc (6 sources)Onset: 10-07-2023 Resolved: 31-69-110733701311-97-2012 Results Test NameValueInterpretationReference RangeFacilityCBC panel Auto (Bld)on 33-60-1454Fikyejzzwto distribution width (RBC) [Ratio]13.5 %Ssrynz20.5-15.0 [facility] on above:Order Comment: Specimen Type: BLOOD SPECIMEN Ordering Facility: [facility] Address: [address] [place], [place] [address]Performed By: #### 34280-9 #### [facility] CLIA [id number] [address] [place] [address] 67675Eehqlkztza (Bld) [Volume fraction]51.2 %High36.0-46.0[facility] on above:Order Comment: Specimen Type: BLOOD SPECIMEN Ordering Facility: [facility] Address: [address] [place], [place] [address]Performed By: #### 08936-2 #### [facility] CLIA [id number] [address] [place] [address] 60695Ikuizqgubo (Bld) [Mass/Vol]16.8 g/jUXylb44.5-15.5CSt. [facility] on above:Order Comment: Specimen Type: BLOOD SPECIMEN Ordering Facility: [facility] Address: [address] [place], [place] [address]Performed By: #### 80918-3 #### [facility] CLIA [id number] [address] [place] [address] 02526PES (RBC) [Entitic mass]31.3 omFsnrpm93.0-34.0[facility] on above:Order Comment: Specimen Type: BLOOD SPECIMEN Ordering Facility: [facility] Address: [address] [place], [place] [address]Performed By: #### 67834-5 #### [facility] CLIA [id number] [address] [place], [place] [address]NIUR (RBC) [Mass/Vol]32.8 g/sOEhymcy56.5-36.0[facility] on above:Order Comment: Specimen Type: BLOOD SPECIMEN Ordering Facility: [facility] Address: [address] [place], [place] [address]Performed By: #### 94796-2 #### [facility] CLIA [id number] [address] [place] [address] 12968DTL (RBC) [Entitic vol]95.3 aSOgkxdc35.0-100.0[facility] on above:Order Comment: Specimen Type: BLOOD SPECIMEN Ordering Facility: [facility] Address: [address] [place], [place] [address]Performed By: #### 18396-0 #### [facility] CLIA [id number] [address] [place] [address] 98039Jwzyagjeh RBC (Bld) [#/Vol]10*3/uLNormal<0.01[facility] on above:Order Comment: Specimen Type: BLOOD SPECIMEN Ordering Facility: [facility] Address: [address] [place], [place] [address]Performed By: #### 45122-6 #### [facility] CLIA [id number] [address] [place] [address] 22424Qsvkxvag mean volume (Bld) [Entitic vol]11.7 fLNormal9.0-12.7 [facility] on above:Order Comment: Specimen Type: BLOOD SPECIMEN Ordering Facility: [facility] Address: [address] [place], [place] [address]Performed By: #### 13276-3 #### [facility] CLIA [id number] [address] [place] [address] 51790Tpoekssuz (Bld) [#/Vol]156 10*3/yXEpafdu698-225GfvmnqkgeLakeHealth TriPoint [facility] Center on above:Order Comment: Specimen Type: BLOOD SPECIMEN Ordering Facility: [facility] Address: [address] [place], [place] [address]Performed By: #### 11738-5 #### [facility] CLIA [id number] [address] [place], [place] [address]ZPR (Bld) [#/Vol]5.37 10*6/uLHigh3.90-5.20[facility] on above:Order Comment: Specimen Type: BLOOD SPECIMEN Ordering Facility: [facility] Address: [address] [place], [place] [address]Performed By: #### 07701-0 #### [facility] CLIA [id number] [address] [place] [address] 73943VYU (Bld) [#/Vol]9.12 10*3/uLNormal3.70-11.00[facility] on above:Order Comment: Specimen Type: BLOOD SPECIMEN Ordering Facility: [facility] Address: [address] [place], [place] [address]Performed By: #### 50151-3 #### [facility] CLIA [id number] [address] [place] [address] 14657Raxcpmucklxsa metabolic 2000 panelon 02-77-3402Uydhykf [Mass/Vol]4.2 g/dLNormal3.9-4.9CSt. [facility] on above:Order Comment: Specimen Type: BLOOD SPECIMEN Ordering Facility: [facility] Address: [address] [place], [place] [address]Performed By: #### 20032-8 #### [facility] CLIA [id number] [address] [place] [address] 84600OBE [Catalytic activity/Vol]114 U/ELwkdds79-042KsbviqihtLakeHealth TriPoint Medical Center on above:Order Comment: Specimen Type: BLOOD SPECIMEN Ordering Facility: [facility] Address: [address] [place], [place] [address]Performed By: #### 68365-6 #### [facility] CLIA [id number] [address] [place], [place] [address]GRF [Catalytic activity/Vol]21 U/LNormal7-38[facility] on above:Order Comment: Specimen Type: BLOOD SPECIMEN Ordering Facility: [facility] Address: [address] [place], [place] [address]Performed By: #### 10202-9 #### [facility] CLIA [id number] [address] [place], [place] [address]Cfczg gap [Moles/Vol]9 mmol/LNormal8-15[facility] on above:Order Comment: Specimen Type: BLOOD SPECIMEN Ordering Facility: [facility] Address: [address] [place], [place] [address]Performed By: #### 30750-0 #### [facility] CLIA [id number] [address] [place] [address] 04901RCH [Catalytic activity/Vol]28 U/AJtzuxk73-43XuatbpzjvLakeHealth TriPoint Medical Center on above:Order Comment: Specimen Type: BLOOD SPECIMEN Ordering Facility: [facility] Address: [address] [place], [place] [address]Performed By: #### 52927-0 #### [facility] CLIA [id number] [address] [place] [address] 40331Oemmrjtqz [Mass/Vol]0.4 mg/dLNormal0.2-1.3CSt. [facility] on above:Order Comment: Specimen Type: BLOOD SPECIMEN Ordering Facility: [facility] Address: [address] [place], [place] [address]Performed By: #### 52175-8 #### [facility] CLIA [id number] [address] [place], [place] [address]Palzpvu [Mass/Vol]10.4 mg/dLHigh8.5-10.2CSt. [facility] on above:Order Comment: Specimen Type: BLOOD SPECIMEN Ordering Facility: [facility] Address: [address] [place], [place] [address]Performed By: #### 09039-1 #### [facility] CLIA [id number] [address] [place], [place] [address]Wlrvwbdv [Moles/Vol]99 mmol/SBshjww35-565SskomldpeBlanchard Valley Health SystemComcaro center on above:Order Comment: Specimen Type: BLOOD SPECIMEN Ordering Facility: [facility] Address: [address] [place], [place] [address]Performed By: #### 68095-3 #### [facility] CLIA [id number] [address] [place], [place] [address]HB8 [Moles/Vol]31 mmol/MNcun62-84WhxkqvmlcBlanchard Valley Health System Comment on above:Order Comment: Specimen Type: BLOOD SPECIMEN Ordering Facility: [facility] Address: [address] [place], [place] [address]Performed By: #### 16464-9 #### [facility] CLIA [id number] [address] [place] [address] 82292Cclnanyqvu [Mass/Vol]0.89 mg/dLNormal0.58-0.96[facility] SystemComcar[facility] on above:Order Comment: Specimen Type: BLOOD SPECIMEN Ordering Facility: [facility] Address: [address] [place], [place] [address]Performed By: #### 48856-8 #### [facility] CLIA [id number] [address] [place] [address] 80119pERFln SerPlBld CKD-EPI 276095 mL/min/1.73m???Normal>=60 [facility] on above:Order Comment: Specimen Type: BLOOD SPECIMEN Ordering Facility: [facility] Address: [address] [place], [place] [address]Result Comment: Estimated Glomerular Filtration Rate (eGFR) is [...] not accurately reflect actual GFR.Performed By: #### 41309-7 #### [facility] CLIA [id number] [address] [place] [address] 25350Upzvdet [Mass/Vol]197 mg/kPZynm94-91OdsxlbwdaBlanchard Valley Health System Comment on above:Order Comment: Specimen Type: BLOOD SPECIMEN Ordering Facility: [facility] Address: [address] [place], [place] [address]Fctdli Comment: The [place] [employer] (ADA) provides guidance for cutoff [...] Standards of Medical Care in Diabetes 2016, [place] [employer]. Diabetes Care. 2016.39(Suppl 1).Performed By: #### 43009-4 #### [facility] CLIA [id number] [address] [place] [address] 63494Xsesgsjpw [Moles/Vol]5.0 mmol/LNormal3.7-5.1CSt. [facility] on above:Order Comment: Specimen Type: BLOOD SPECIMEN Ordering Facility: [facility] Address: [address] [place], [place] [address]Rdmzbcnis By: #### 70292-9 #### [facility] CLIA [id number] [address] [place] [address] 28075Nlmrakl [Mass/Vol]7.5 g/dLNormal6.3-8.0[facility] on above:Order Comment: Specimen Type: BLOOD SPECIMEN Ordering Facility: [facility] Address: [address] [place], [place] [address]Nvqwpqlvt By: #### 21011-9 #### [facility] CLIA [id number] [address] [place], [place] [address]Mkkjbv [Moles/Vol]139 mmol/RMyhhvq055-224SfzfbndcaLakeHealth TriPoint Medical Center on above:Order Comment: Specimen Type: BLOOD SPECIMEN Ordering Facility: [facility] Address: [address] [place], [place] [address]Performed By: #### 77383-0 #### [facility] CLIA [id number] [address] [place], [place] [address]Rzhf nitrogen [Mass/Vol]8 mg/dLNormal7-21[facility] on above:Order Comment: Specimen Type: BLOOD SPECIMEN Ordering Facility: [facility] Address: [address] [place], [place] [address]Performed By: #### 35588-9 #### [facility] CLIA [id number] [address] [place], [place] [address]RZGM AND SCREEN,30 DAYon 43-94-6857NBPRBipufsOhsxjhgbjSt. Vincent Hospital on above:Order Comment: Specimen Type: BLOOD SPECIMEN Ordering Facility: [facility] Address: [address] [place], [place] [address]Performed By: #### [id number] #### [facility] CLIA [id number] [address] [place] [address] [place] STATES OF AMERICARh Nom (Bld)PositiveNormalCSt. Vincent Hospital on above:Order Comment: Specimen Type: BLOOD SPECIMEN Ordering Facility: [facility] Address: [address] [place], [place] [address]Performed By: #### [id number] #### [facility] CLIA [id number] [address] [place] [address] STATES OF AMERICACNPNon [id number] (NCCAP) TAYE GAY ([id number]) 1955 F Date Time Provider Department 02/18/25 ZACK CORDOBA During your visit today, we recorded the following information about you: Marylin KennedySarah 02/18/2025 10:34 AM Signed ----- Message from Shantel Sanabria sent at 02/18/2025 10:06 AM EDT ----- Can someone please call Dr. Linwood Irwin office to get this colposcopy with biopsies scheduled? Thanks! Shantel ----- Message ----- From: Farida Sinclair APRN.UNDER BASTER Sent: 02/17/2025 12:43 PM EDT To: Shantel Gutierrez [facility] Thanks, so the plot thickens. [...] results. ----- Message ----- From: Farida Sinclair APRN.UNDER BASTER Sent: 02/11/2025 3:41 PM EDT To: Zack Cordoba MD; Shantel Gutierrez # Hi all, path review back, patient just has benign warts. However I don't see a pap result from that visit, am I missing it? 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 She might need something with her cervix. Can we please get her pap? If everything is normal she doesn't need us unless Dr. Irwin needs surgical help. Thanks. Farida Coulter Pss, Sarah 02/18/2025 10:55 AM Signed I called Dr Irwin office [phone] and spoke with Summer. Summer states she will send Dr Irwin a message re: our call per Farida NAPRAPATH patient needs Colposcopy with biopsy and would [...] date of procedure. I gave Summer our [place] office phone number to call back with any updates and also provided her with Dr Cordoba [place] [phone] Irwin to call [...] applicatorful vaginally once (more content not included)...Normal [facility] SURG PATH SLIDE REVIEWon [id number] DISCLAIMERNormalCSt. Vincent Hospital on above:Order Comment: Specimen Type: FORMALIN-FIXED PARAFFIN-EMBEDDED TISSUE SPECIMEN Ordering Facility: [facility] Address: , ,Result Comment: Laboratory Developed Test (LDT) Disclaimer: Performance characteristics of immunohistochemical, immunofluorescent, and chromogenic in-situ hybridization tests have been determined by the performing laboratory within the [facility] Department of Pathology and Laboratory Medicine ([facility], [facility], [facility], [facility], [facility], [facility], or [facility]) in a manner consistent with CLIA requirements. One or more of these tests may not have been cleared or approved by the FDA. The [facility] Department of Pathology and Laboratory Medicineis regulated under CLIA as qualified to perform high-complexity testing. These tests are used for clinical purposes. These should not be regarded as investigational or for research. Positive and negative controls stain appropriately.Performed By: #### [id number] #### [facility] CLIA [id number] [address] [place] [address] OF [facility]ITALCASE REPORTNoMemorial Hospital on above:Order Comment: Specimen Type: FORMALIN-FIXED PARAFFIN- EMBEDDED TISSUE SPECIMEN Ordering Facility: [facility] Address: , ,Result Comment: Surgical Pathology Report Case: [id number] Authorizing Provider: Zack Cordoba MD Collected: 02/10/2025 10:21 PM Ordering Location: [facility] Received: 02/10/2025 10:19 PM [facility] Pathologist: Stacy Hassan MD Specimen: Slide(s), 2 SLIDES ([id number])Performed By: #### [id number] #### [facility] CLIA [id number] [address] [place], [place] [address]FINAL DIAGNOSISNoMemorial Hospital on above:Order Comment: Specimen Type: FORMALIN-FIXED PARAFFIN-EMBEDDED TISSUE SPECIMEN Ordering Facility: [facility] Address: , ,Result Comment: Review of outside slides Vulva, biopsy: Consistent with condyloma. at 1516 EDTPerformed By: #### [id number] #### [facility] CLIA [id number] [address] [place], [place] [address]FINAL PERFORMING LABNoMemorial Hospital on above:Order Comment: Specimen Type: FORMALIN-FIXED PARAFFIN-EMBEDDED TISSUE SPECIMEN Ordering Facility: [facility] Address: , ,Result Comment: Diagnostic interpretation performed at: [facility], [address] [place] [address] CLIA# [id number] Career Coach: Rudi Turner MDPerformed By: #### [id number] #### [facility] CLIA [id number] [address] [place], [place] [address] [place] OF AMERICAMISCELLANEOUS SMEAR CYTOLOGYon [id number] report Cyto stain Doc (Unsp spec)CommentNONJ Healthcare Comment on above:VULVA INCONCLUSIVE. ATYPICAL SQUAMOUS CELLS OF UNDETERMINED SIGNIFICANCE (ASC-US) (VULVAR). FUNGAL ORGANISMS ARE PRESENT. Pathologist nameCommentNOMS HealthcareComment on above:Eldon Madera MD, PathologistPathology report comments [Interpretation] NarrativeCommentNOMS HealthcareComment on above:Suggest follow up as clinically appropriate.Pathology report gross observation NarrativeCommentNOMS HealthcareComment on above:20ML, LT WHITE, CLOUDY /LCS 02/05/2025 0740 Local Pathology report site of origin NarrativeCommentNOMS HealthcareComment on above: VULVAPerformed by:CommentNONJ HealthcareComment on above:Carmelita Reese, Fieldwork Coordinator (ASCP)Performed at: 01 - [address] [id number] Optometrist Assistant: Savi Cai MD, Phone: [phone] Specimen Comment: No. of containers..01 ThinPrep VialLABCORPSaint John's Breech Regional Medical CenterNo Panel Informationon 76-20-7659Ytfckwtgq ICD code [Identifier]CommentNOTexas County Memorial HospitalComment on above:N89.8 Z01.419 Z12.4 R87.69CNPNon 54-55-0543PONRXfiezwtkt ([facility]AYE GAY ([id number]) 1955 F Date Time Provider Department 02/04/25 [facility] During your visit today, we recorded the following information about you: Reva Finney 02/04/2025 3:42 PM Signed Patient has referral to see Dr. Cordoba diagnosis of recurrent lesion referring provider Linwood Irwin first available is March 09 Please review and advise Thank you Reva Finney, RAUL [facility] CenterShantel 02/05/2025 8:46 AM Signed The [...] lesion [N90.89] Order(s):OUTSIDE SURG PATH SLIDE REVIEW [VBV2056] Order #: [id number] Prescriptions as of 02/09/2025 - polyethylene glycol [...] [F17.200] Encounter Status:Closed by FARIDA SINCLAIR on 02/09/25[facility] lung screeningon 52-31-5175LX lung screeningVAN [facility] Main [place] [address] [place] [address] CT Scan Report Signed Patient: Taye Gay MR#: [id number] 19 : 1955 Acct:[id number] Age/Sex: 69 / F ADM Date: 02/02/25 Loc: CT Room: Type: [facility] Attending Dr: CHERYL Palacios APRN Copies [...] Jr., DKenishaOKenisha 02/02/2025 12:36 PM Dictation Location: [facility]--27 Transcribed By: [facility] 02/02/25 1236 Dictated By: Edgar Segovia Jr DO 02/02/25 1232 Signed By: 02/02/25 1236[facility] Physician WdskkCbR3h HPLC (Bld) [Mass fraction] Ordered By: Angelique Russell on 22-99-0947MbY0i (Bld) [Mass fraction]8.6 %[facility] HospitalNo Panel InformationOrdered By: Angelique Russell on 49-14-8928Xrnxfsm Zwdhrcy768YoxipivxzLancaster Municipal HospitalMR LUMBAR SPINE WO CONTRASTon 83-98-2385JX LUMBAR SPINE WO CONTRASTEXAM: MR LUMBAR SPINE [...] culture with sensitivityOrdered By: Karl Fritz on 81-45-4637Tpdxwlqc identified Aer cx Nom (Unsp spec)Klebsiella oxytocaAbHighland District Hospital Bacteria identified Aer cx Nom (Unsp spec)Staphylococcus aureusAbSelect Medical Specialty Hospital - Youngstownuperficial Wound Cultureon 99-36-2643Jhtjrbtvqxh Wound CultureORGANISM: Klebsiella oxytoca (O:KLEOXY) Quantity of [...] RESISTANT TO ALL B-LACTAM DRUGS. PERFORMED BY: [place] [address] PATHOLOGIST CIGARETTE VENDOR BENNIE HIGGINBOTHAM M.D.NormalRiver Point Behavioral Health Physician GroupComment on above: Performed By: #### CMP, MG, PHOS, CBC #### [place] [address] USAXR Foot - right 3 Viewson 79-20-3416Kvdbweq Result: Three views of the right foot: [...] plantar sesamoids and metatarsal head right 1st metatarsal.[facility] HealthcareRadiology Study observation (narrative)[facility] Blue Springsillary blood glucose measurement by glucometer (mass/volume)Ordered By: Manjit Gleason on 14-91-3500Uxgjove [Mass/Vol]234 mg/dLNoMercy Health Urbana Hospital Comment on above:Random Glucose Reference Range [...] #### CMP, MG, PHOS, CBC #### [facility] [address] [place] [address] USAGlucose Glucometer (BldC) [Mass/Vol]Ordered By: Manjit Gleason on 58-85-6982Llalyqi [Mass/Vol]Capillary blood glucose measurement by glucometer (mass/volume)[facility] HospitalComment on above:Random Glucose Reference Range is dependent on time and content of last meal. Glucose of more than 200 mg/dL in a nonstressed, ambulatory subject supports the diagnosis of Diabetes Mellitus.Glucose Poct Glucometerson 84-59-9555Akiuiwy2 Glu2: Cleaned [facility] Physician GroupComment on above:Result Comment: PERFORMED BY: [place] [id number] PATHOLOGIST CIGARETTE VENDOR LE MACE M.D.Performed By: #### CMP, MG, PHOS, CBC #### [address] [address] USANo Panel InformationOrdered By: Manjit Gleason on 09-10-2024 Miscellaneous Pathology TestSee Togus VA Medical CenterComment on above:See report. Scanned copy available in EMR.Bedside Glucose CommentGlu2: cleaned [facility] Brent[facility] HospitalPathology Request for Lab Corpon 54-74-3893Wgclojhvr Request for Lab CorpHCA Florida [facility] Hospital Physician Group Comment on above:Order Comment: GI SPECIMENResult Comment: See report. Scanned copy available in EMR. PERFORMED BY: [place] [id number] PATHOLOGIST CIGARETTE VENDOR LE MACE M.D.Performed By: #### CMP, MG, PHOS, CBC #### [facility] [address] [place] [address] UQBRlN0f HPLC (Bld) [Mass fraction]on 74-85-7838HgV8l (Bld) [Mass fraction]Hemoglobin A1c/Hemoglobin.total in Blood by [facility]terson Medical CenterHbA1c (Bld) [Mass fraction]8.8 %[facility] HospitalNo Panel Informationon 71-42-1430Fisionq Wegqtto771ErqelpqomLancaster Municipal HospitalUS ankle/arm indiceson 03-64-9473YX ankle/arm indices [facility] [address] [place] [address] Ultrasound Report Signed Patient: Taye Gay MR#: [id number] 19 : 1955 Acct:[id number] Age/Sex: 68 / F ADM Date: 07/22/24 Loc: [facility] Room: Type: [facility] Attending Dr: Tray Nava MD Ordering [...] Eugenio Rob M.D.07/23/2024 9:21 AM Dictation Location: [place] [address] Tech: Carmelita Carlos Manuel Transcribed By: [facility] 07/23/24 0921 Dictated By: Eugenio Rob MD 07/23/24 0920 Signed By: 07/23/24 0921[facility] Physician GroupUrine Cultureon 07-06-2024 Bacteria identified Cx Nom (U)ORGANISM: Klebsiella oxytoca (O:KLEOXY) [place] Count >100,000 Aerobic FAMILIA Charge (NMIC56) SUSCEPTIBILITY [...] RESISTANT TO ALL B-LACTAM DRUGS. PERFORMED BY: [place] [address] PATHOLOGIST CIGARETTE VENDOR LE MACE M.D.[facility] Physician GroupComment on above: Performed By: #### CMP, MG, PHOS, CBC #### [place] [address] USAUrine cultureOrdered By: Deneen Frost on 07-06-2024 Bacteria identified Cx Nom (U)AbnormalLancaster Municipal HospitalAlanine aminotransferase [Enzymatic activity/volume] in Serum or PlasmaOrdered By: Angelique Russell on 78-50-6080XTS [Catalytic activity/Vol]Alanine aminotransferase [Enzymatic activity/volume] in Serum or Plasma7-[facility] HospitalAlbumin [Mass/volume] in Serum or Plasma by Bromocresol green (BCG) dye binding methoOrdered By: Angelique Russell on 41-89-3717Idjpwda BCG dye [Mass/Vol] Albumin [Mass/volume] in Serum or Plasma by Bromocresol green (BCG) dye binding metho3.5-5.7FAshtabula County Medical CenterAlkaline phosphatase [Enzymatic activity/volume] in Serum or PlasmaOrdered By: Angelique Russell on 69-58-7563TTY [Catalytic activity/Vol]Alkaline phosphatase [Enzymatic activity/volume] in Serum or Ckzykk93-840MxrkcsdbgLancaster Municipal HospitalAspartate aminotransferase [Enzymatic activity/volume] in Serum or PlasmaOrdered By: Angelique Russell on 49-62-0367IND [Catalytic activity/Vol]Aspartate aminotransferase [Enzymatic activity/volume] in Serum or Fnuixr98-07QkhhdpxsmLancaster Municipal HospitalB-Type Natriuretic Peptideon 09-77-4220Pvnqwoikwuh peptide B (Bld) [Mass/Vol]54.0 pg/mL Normal5-100The [facility] Physician GroupComment on above:Result Comment: PERFORMED BY: [facility] [address] [place] [address] PATHOLOGIST CIGARETTE VENDOR LE MACE M.D.Performed By: #### CMP, MG, PHOS, CBC #### [facility] [address] [place] [address] USABCR-ABL Neogenomicon 52-22-2321FCC-ABL NeogenomicNormMemorial Regional Hospital South Physician [facility] Medical CenterComment on above:Result Comment: See report. Scanned copy available in EMR. PERFORMED BY: [facility] [address] [place] [address] PATHOLOGIST CIGARETTE VENDOR LE MACE M.D.Performed By: #### CMP, MG, PHOS, CBC #### [facility] [address] [place] [address] USABasophils Auto (Bld) [#/Vol]Ordered By: Nataliya Jane on 61-99-6878Dkmxfwtzw (Bld) [#/Vol]Automated basophil count0.0-0.2FAshtabula County Medical CenterBasophils/100 WBC Auto (Bld)Ordered By: Nataliya Jane on 17-59-6657Taiazfnte/100 WBC (Bld)Automated basophil %.[facility] HospitalBilirubin.total [Mass/volume] in Serum or PlasmaOrdered By: Angelique Russell on 56-33-4635Rvopujbzq [Mass/Vol]Bilirubin.total [Mass/volume] in Serum or Plasma0.3-1.0L[facility] HospitalCBC W Auto Differential panel (Bld)on 99-04-9326Asqgoacbt (Bld) [#/Vol]0 10*3/uL0.0 - 0.2 10*3/uLNOMS HealthcareBasophils/100 WBC Manual cnt (Syn fld)0.5 %.[facility] HealthcareEosinophils (Bld) [#/Vol]0.2 10*3/uL0.0 - 0.45 10*3/uLNOMS HealthcareEosinophils/100 WBC Manual cnt (Syn fld)2.7 %.[facility] Medical CenterErythrocyte distribution width (RBC) [Ratio]14.6 %11.9 - 15.3 %[facility] HealthcareHematocrit (Bld) [Volume fraction]46.4 %34.0 - 46.4 %[facility] Medical CenterHemoglobin (Bld) [Mass/Vol]15.8 g/mBQawz47.8 - 15.4 g/dLSaint John's Breech Regional Medical CenterInterpretation and review of laboratory resultsAbnormalSaint John's Breech Regional Medical CenterLymphocytes (Bld) [#/Vol]1.6 10*3/uL1.00 - 4.8 10*3/uLNOMS Healthcare Lymphocytes/100 WBC Manual cnt (Syn fld)23.1 %.[facility] & Sports MedicineH (RBC) [Entitic mass]32.6 pg24.7 - 34.3 pgFreeman Orthopaedics & Sports MedicineHC (RBC) [Mass/Vol]34.2 g/dL32.0 - 35.0 g/dLFreeman Orthopaedics & Sports MedicineV (RBC) [Entitic vol]95.3 fL80 - 100 fLSaint John's Breech Regional Medical Center Monocytes (Bld) [#/Vol]0.5 10*3/uL0.0 - 0.8 10*3/uLNOTexas County Memorial Hospital Monocytes+Macrophages/100 WBC Manual cnt (Syn fld)6.6 %.[facility] Neutrophils (Bld) [#/Vol]4.6 10*3/uL1.8 - 7.7 10*3/uLNOMS Healthcare Neutrophils/100 WBC Manual cnt (Syn fld)67.1 %.NOMS HealthcareNRBC0.1 /100{WBC}0 - 0.5 /100{WBC}NOMS HealthcarePlatelet mean volume (Bld) [Entitic vol]10.4 fL 6.3 - 10.7 fLNOMS HealthcarePlatelets (Bld) [#/Vol]120 10*3/sZNxi919 - 450 10*3/uLNOMS HealthcareRBC LM.HPF (Urine sed) [#/Area]4.86 10*6/uL3.60 - 5.00 10*6/uLNOMS HealthcareWBC (Bld) [#/Vol]6.9 10*3/uL3.8 - 11.6 10*3/uLNOMS HealthcareWBC LM.HPF (Urine sed) [#/Area]6.9 10*3/uL3.8 - 11.6 10*3/uLNOMS HealthcareNOMS HealthcareCalcium [Mass/volume] in Serum or PlasmaOrdered By: Angelique Russell on 88-31-6989Ozevyme [Mass/Vol]Calcium [Mass/volume] in Serum or Plasma8.6-10.3FAshtabula County Medical CenterCarbon dioxide, total [Moles/volume] in Serum or PlasmaOrdered By: Angelique Russell on 01-80-9330EV0 [Moles/Vol]Carbon dioxide, total [Moles/volume] in Serum or Gpejqu80.0-31.0 [facility] HospitalChloride [Moles/volume] in Serum or Plasma Ordered By: Angelique Russell on 12-01-2251Cubwmpne [Moles/Vol]Chloride [Moles/volume] in Serum or Sjhjyt99-568WrrdnuptfLancaster Municipal Hospital Cholesterol [Mass/volume] in Serum or PlasmaOrdered By: Angelique Russell on 03-51-4419Uldwwjkajcf [Mass/Vol]Cholesterol [Mass/volume] in Serum or PlasmaLow 140-200L[facility] Municipal HospitalComment on above:Chol less than 200 mg/dl low riskChol 201-239 mg/dl borderline riskChol 240 mg/dl and greater high riskCholesterol in HDL [Mass/volume] in Serum or PlasmaOrdered By: Angelique Russell on 05-59-1600Vhzabwddyqe in HDL [Mass/Vol]Serum or plasma high density lipoprotein (HDL) cholesterol rykbrobzylf35-45ObxilhpjkLancaster Municipal Hospital Comment on above:HDL CHOL ATP-III CLASSIFICATION Cardiovascular RiskHDL > or equal to 60 mg/dL LOWHDL < 40 mg/dL HIGHCholesterol in LDL Calc [Mass/Vol] Ordered By: Angelique Russell on 63-54-7749Zprjkyaxzzk in LDL [Mass/Vol]Cholesterol in LDL [Mass/volume] in Serum or Plasma by calculationLancaster Municipal HospitalComment on above:LDL ATP III CLASSIFICATIONLDL less than 100 mg/dL OptimalLDL 100-129 mg/dL Near or above juyburnCUZ215-299 mg/dL Borderline highLDL 160-189 mg/dL HighLDL greater than 189 mg/dL Very highCholesterol in VLDL Calc [Mass/Vol]Ordered By: Angelique Russell on 93-82-8559Iorcxwdffsf in VLDL [Mass/Vol]Cholesterol in VLDL [Mass/volume] in Serum or Plasma by calculation [facility] HospitalComplete Blood Count Auto Diffon 06-26-2024 Basophils (Bld) [#/Vol]0.0 10*3/uLNormal0.0-0.2The [facility] Physician Group Comment on above:Result Comment: PERFORMED BY: [place] [address] PATHOLOGIST CIGARETTE VENDOR LE MACE M.D.Performed By: #### CMP, MG, PHOS, CBC #### [facility] [address] [place] [address] USABasophils/100 WBC (Bld)0.5 %Normal.The [facility] Physician GroupComment on above:Performed By: #### CMP, MG, PHOS, CBC #### [facility] [address] [place] [address] USAEosinophils (Bld) [#/Vol]0.2 10*3/uLNormal0.0-0.45The [facility] Physician GroupComment on above:Performed By: #### CMP, MG, PHOS, CBC #### [place] [address] USAEosinophils/100 WBC (Bld)2.7 %Normal.The [facility] Physician GroupComment on above:Performed By: #### CMP, MG, PHOS, CBC #### [place] [address] USAErythrocyte distribution width (RBC) [Ratio]14.6 %Normal 11.9-15.3The [facility] Physician GroupComment on above:Performed By: #### CMP, MG, PHOS, CBC #### [place] [address] USAHematocrit (Bld) [Volume fraction]46.4 %Hqmbar20.0-46.4The [facility] Physician GroupComment on above:Performed By: #### CMP, MG, PHOS, CBC #### [place] [address] USAHemoglobin (Bld) [Mass/Vol]15.8 g/sETeja75.8-15.4The [facility] Physician GroupComment on above:Performed By: #### CMP, MG, PHOS, CBC #### [place] [address] USALymphocytes (Bld) [#/Vol]1.6 10*3/uLNormal1.00-4.8The [facility] Physician GroupComment on above:Performed By: #### CMP, MG, PHOS, CBC #### [place] [address] USALymphocytes/100 WBC (Bld)23.1 %Normal.The [facility] Physician GroupComment on above:Performed By: #### CMP, MG, PHOS, CBC #### [place] [address] USAMCH (RBC) [Entitic mass]32.6 ygPzkuyj31.7-34.3The [facility] Physician GroupComment on above:Performed By: #### CMP, MG, PHOS, CBC #### [address] [place] [address] USAMCV (RBC) [Entitic vol]95.3 kKKendnj87-684Lqq [facility] Physician GroupComment on above:Performed By: #### CMP, MG, PHOS, CBC #### [place] [address] USAMean Corpuscular HGB Conc34.2 g/iMUqatcv71.0-35.0The [facility] Physician GroupComment on above:Performed By: #### CMP, MG, PHOS, CBC #### [place] [address] USAMonocytes (Bld) [#/Vol]0.5 10*3/uLNormal0.0-0.8The [facility] Physician GroupComment on above:Performed By: #### CMP, MG, PHOS, CBC #### [place] [address] USAMonocytes/100 WBC (Bld)6.6 %Normal.The [facility] Physician GroupComment on above:Performed By: #### CMP, MG, PHOS, CBC #### [place] [address] USANeutrophils (Bld) [#/Vol]4.6 10*3/uLNormal1.8-7.7The [facility] Physician GroupComment on above:Performed By: #### CMP, MG, PHOS, CBC #### [place] [address] USANeutrophils/100 WBC (Bld)67.1 %Normal.The [facility] Physician GroupComment on above:Performed By: #### CMP, MG, PHOS, CBC #### [place] [address] USANRBC%0.1 /100{WBC}Normal0-0.5The [facility] Physician Group Comment on above:Performed By: #### CMP, MG, PHOS, CBC #### [place] [address] USAPlatelet mean volume (Bld) [Entitic vol]10.4 fLNormal 6.3-10.7The [facility] Physician GroupComment on above:Performed By: #### CMP, MG, PHOS, CBC #### [place] [address] USAPlatelets (Bld) [#/Vol]120 10*3/mQXra058-190Eik [facility] Physician GroupComment on above:Performed By: #### CMP, MG, PHOS, CBC #### [place] [address] USARBC (Bld) [#/Vol]4.86 10*6/uLNormal3.60-5.00The [facility] Physician GroupComment on above:Performed By: #### CMP, MG, PHOS, CBC #### [place] [address] USAWBC (Bld) [#/Vol]6.9 10*3/uLNormal3.8-11.6The [facility] Physician GroupComment on above:Performed By: #### CMP, MG, PHOS, CBC #### [place] [address] USAComprehensive Metabolic Panelon 38-28-2239Ykgcbsa [Mass/Vol]3.8 g/dLNormal3.5-5.7The [facility] Physician GroupComment on above: Performed By: #### CMP, MG, PHOS, CBC #### [place] [address] USAAlbumin/Globulin [Mass ratio]1.5 {ratio}NormalThe [facility] Physician GroupComment on above:Performed By: #### CMP, MG, PHOS, CBC #### [place] [address] USAALP [Catalytic activity/Vol]92 U/WRaidiw63-981Hha [facility] Physician GroupComment on above:Result Comment: PERFORMED BY: [place] [address] PATHOLOGIST CIGARETTE VENDOR LE MACE M.D.Performed By: #### CMP, MG, PHOS, CBC #### [facility] [address] [place] [address] USAALT [Catalytic activity/Vol]23 U/LNormal7-52The [facility] Physician GroupComment on above:Performed By: #### CMP, MG, PHOS, CBC #### [facility] [address] [place] [address] USAAnion gap [Moles/Vol]12.2 mmol/LNormal6.0-15.0The [facility] Physician GroupComment on above:Performed By: #### CMP, MG, PHOS, CBC #### [facility] [address] [place] [address] USAAST [Catalytic activity/Vol]36 U/JBbcggi09-16Gxd [facility] Physician GroupComment on above:Performed By: #### CMP, MG, PHOS, CBC #### [place] [address] USABilirubin [Mass/Vol]0.4 mg/dLNormal0.3-1.0The [facility] Physician GroupComment on above:Performed By: #### CMP, MG, PHOS, CBC #### [facility] [address] [place] [address] USACalcium [Mass/Vol]9.4 mg/dLNormal8.6-10.3The [facility] Physician GroupComment on above:Performed By: #### CMP, MG, PHOS, CBC #### [place] [address] USAChloride [Moles/Vol]103 mmol/PMmzols28-611Zvt [facility] Physician GroupComment on above:Performed By: #### CMP, MG, PHOS, CBC #### [facility] [address] [place] [address] USACO2 [Moles/Vol]29.0 mmol/NKbvhdq27.0-31.0The [facility] Physician GroupComment on above:Performed By: #### CMP, MG, PHOS, CBC #### [facility] [address] [place] [address] USACreatinine [Mass/Vol]0.93 mg/dLNormal0.60-1.20The [facility] Physician GroupComment on above:Performed By: #### CMP, MG, PHOS, CBC #### [place] [address] USAGFR/1.73 sq M.predicted MDRD (S/P/Bld) [Vol rate/Area] mL/min/{1.73_m2}NormalThe [facility] Physician GroupComment on above:Performed By: #### CMP, MG, PHOS, CBC #### [place] [address] USAGlobulin (S) [Mass/Vol]2.6 g/dLNormalThe [facility] Physician GroupComment on above:Performed By: #### CMP, MG, PHOS, CBC #### [place] [address] USAGlucose [Mass/Vol]256 mg/nJKicg23-136Ssm [facility] Physician GroupComment on above:Result Comment: Random Glucose Reference Range is dependent on time and content of last meal. Glucose of more than 200 mg/dL in a nonstressed, ambulatory subject supports the diagnosis of Diabetes Mellitus. ADA recommended reference rangePerformed By: #### CMP, MG, PHOS, CBC #### [place] [address] USAPotassium [Moles/Vol]4.2 mmol/LNormal3.5-5.1The [facility] Physician GroupComment on above:Performed By: #### CMP, MG, PHOS, CBC #### [place] [address] USAProtein [Mass/Vol]6.4 g/dLNormal6.4-8.9The [facility] Physician GroupComment on above:Performed By: #### CMP, MG, PHOS, CBC #### [place] [address] USASodium [Moles/Vol]140 mmol/NGktbzv485-141Sql [facility] Physician GroupComment on above:Performed By: #### CMP, MG, PHOS, CBC #### [address] [place] [address] USAUrea nitrogen [Mass/Vol]9 mg/dLNormal [facility] Physician GroupComment on above:Performed By: #### CMP, MG, PHOS, CBC #### [facility] [address] [place] [address] USACreatinine [Mass/volume] in Serum or PlasmaOrdered By: Angelique Russell on 36-20-1790Tlcmdcsybv [Mass/Vol]Creatinine [Mass/volume] in Serum or Plasma0.60-1.20[facility] HospitalCreatinine [Mass/volume] in UrineOrdered By: Angelique Russell on 85-74-3971Ofysqqwhvl (U) [Mass/Vol]Creatinine [Mass/volume] in UrineLancaster Municipal HospitalComment on above:No reference range establishedECG 12 [place] 94-93-8929Ebgavj sinus rhythmCPACS [facility] Work Phone: Eosinophils Auto (Bld) [#/Vol]Ordered By: Nataliya Jane on 11-14-6538Mtgaakzvjmu (Bld) [#/Vol]Automated eosinophil count 0.0-0.45[facility] HospitalEosinophils/100 WBC Auto (Bld)Ordered By: Nataliya Jane on 00-22-7158Jjrqlzusrow/100 WBC (Bld)Automated eosinophil %. [facility] HospitalErythrocyte distribution width Auto (RBC) [Ratio]Ordered By: Nataliya Jane on 58-17-2956Eoqyaydbmhy distribution width (RBC) [Ratio]Erythrocyte distribution width [Ratio] by Automated count11.9-15.3 [facility] HospitalFlowcytometry Neogenomicon 06-26-2024 Flowcytometry NeogenomicNoFrye Regional Medical Center Physician GroupComment on above: Result Comment: See report. Scanned copy available in EMR.Performed By: #### CMP, MG, PHOS, CBC #### [facility] [address] [place] [address] USAGlobulin Calc (S) [Mass/Vol]Ordered By: Angelique Russell on 77-25-9527Cmvgafmh (S) [Mass/Vol]Serum globulin measurement by calculation (mass/volume)[facility] HospitalGlucose [Mass/volume] in Serum or PlasmaOrdered By: Angelique Russell on 52-56-7865Jrzwvqh [Mass/Vol]Glucose [Mass/volume] in Serum or XthwucHuwx81-877HpjfxziufLancaster Municipal Hospital Comment on above:ADA recommended reference rangeRandom Glucose Reference Range is dependent on time and content of last meal. Glucose of more than 200 mg/dL in a nonstressed, ambulatory subject supports the diagnosisof Diabetes Mellitus. Hematocrit Auto (Bld) [Volume fraction]Ordered By: Nataliya Lucinda on 06-26-2024 Hematocrit (Bld) [Volume fraction]Hematocrit [Volume Fraction] of Blood by Automated count34.0-46.4FAshtabula County Medical CenterHemoglobin [Mass/volume] in BloodOrdered By: Nataliya Lucinda on 27-43-8756Wqdaipopkc (Bld) [Mass/Vol]Hemoglobin [Mass/volume] in YqlhtNnbv00.8-15.4FAshtabula County Medical CenterJAK 2 Neogenomicon 35-05-9535XWU 2 NeogenomicNormSheltering Arms Hospitale [facility] Physician GroupComment on above:Result Comment: See report. Scanned copy available in EMR.Performed By: #### CMP, MG, PHOS, CBC #### [facility] [address] [place] [address] USALeukocytes [#/volume] corrected for nucleated erythrocytes in Blood by Automated counOrdered By: Nataliya Lucinda on 17-62-5085FKK corrected for nucl RBC Auto (Bld) [#/Vol]Leukocytes [#/volume] corrected for nucleated erythrocytes in Blood by Automated coun3.8-11.6FAshtabula County Medical Center Lipid Panelon 23-62-7458Knhqsakycfb [Mass/Vol]93 mg/oKGnv920-219Gey [facility] Physician GroupComment on above:Result Comment: Chol less than 200 mg/dl low risk Chol 201-239 mg/dl borderline risk Chol 240 mg/dl and greater high riskPerformed By: #### CMP, MG, PHOS, CBC #### [facility] [address] [place] [address] USACholesterol in HDL [Mass/Vol]27 mg/rJIbuzal40-71Bcf [facility] Physician GroupComment on above:Result Comment: HDL CHOL ATP-III CLASSIFICATION Cardiovascular Risk HDL > or equal to 60 mg/dL LOW HDL < 40 mg/dL HIGHPerformed By: #### CMP, MG, PHOS, CBC #### [facility] [address] [place] [address] USACholesterol.total/Cholesterol in HDL [Mass ratio]3.4 {ratio}Normal<5.0The [facility] Physician GroupComment on above:Performed By: #### CMP, MG, PHOS, CBC #### [facility] [address] [place] [address] USALDL Cholesterol,Lmlruerhmp17 mg/dLNormal0-100The [facility] Physician GroupComment on above:Result Comment: LDL ATP III CLASSIFICATION LDL less than 100 mg/dL Optimal LDL 100-129 mg/dL Near or above optimal LDL 130-159 mg/dL Borderline high LDL 160-189 mg/dL High LDL greater than 189 mg/dL Very highPerformed By: #### CMP, MG, PHOS, CBC #### [facility] [address] [place] [address] USATriglyceride w/Fuyawi101 mg/dLHigh0-149The [facility] Physician GroupComment on above:Result Comment: TRIG ATP III CLASSIFICATION TRIG less than 150 mg/dL Normal TRIG 150-199 mg/dL Borderline high TRIG 200-500 mg/dL High TRIG greater than 500 mg/dL Very high Standard traceable to the Center for Disease Conrtrol and Prevention (CDC) test method.Performed By: #### CMP, MG, PHOS, CBC #### [facility] [address] [place] [address] USAVLDL KGDXOPSRLYP77 mg/dLNormalThe [facility] Physician GroupComment on above:Performed By: #### CMP, MG, PHOS, CBC #### [facility] [address] [place] [address] USALymphocytes Auto (Bld) [#/Vol]Ordered By: Nataliya Jane on 16-12-1138Vvewfiwpiqv (Bld) [#/Vol]Lymphocytes [#/volume] in Blood by Automated count1.00-4.8[facility] Medical CenterLymphocytes/100 WBC Auto (Bld) Ordered By: Nataliya Gaonaoren on 45-80-0303Ntzjebrmoky/100 WBC (Bld)Lymphocytes/100 leukocytes in Blood by Automated count.[facility] Auto (RBC) [Entitic mass]Ordered By: Nataliya Lucinda on 05-61-3141RFY (RBC) [Entitic mass]MCH [Entitic mass] by Automated count24.7-34.3FParkwood HospitalHC Auto (RBC) [Mass/Vol]Ordered By: Nataliya Lucinda on 48-41-8531NPZO (RBC) [Mass/Vol]MCHC [Mass/volume] by Automated count32.0-35.0[facility] HospitalV Auto (RBC) [Entitic vol]Ordered By: Nataliya Lucinda on 57-47-2082PLL (RBC) [Entitic vol]MCV [Entitic volume] by Automated pkbiy95-500 [facility] HospitalMicroAlb Creat Ratio,Uon 29-31-0976Qayjsgo DL <= 20 mg/L (U) [Mass/Vol]mg/dLNormal0.0-1.8The [facility] Physician GroupComment on above:Performed By: #### CMP, MG, PHOS, CBC #### [place] [address] USACreatinine, Urine (Random)65.00 mg/dLNormalThe [facility] Physician GroupComment on above:Result Comment: No reference range established Performed By: #### CMP, MG, PHOS, CBC #### [facility] [address] [place] [address] USAMicroalbumin/Creatinine RatioNot performedNormal0.0-30.0 The [facility] Physician GroupComment on above:Result Comment: PERFORMED BY: [place] [address] PATHOLOGIST CIGARETTE VENDOR LE MACE M.D.Performed By: #### CMP, MG, PHOS, CBC #### [place] [address] USAMicroalbumin [Mass/volume] in UrineOrdered By: Angelique Russell on 99-15-9616Jaubrcn DL <= 20 mg/L (U) [Mass/Vol]Microalbumin [Mass/volume] in Urine0.0-1.8[facility] HospitalMonocytes Auto (Bld) [#/Vol]Ordered By: Nataliya Jane on 99-40-2714Dzqwrpszj (Bld) [#/Vol] Automated blood monocyte count0.0-0.8[facility] Monocytes/100 WBC Auto (Bld)Ordered By: Nataliya Jane on 48-05-8919Gzlsmvkku/100 WBC (Bld)Automated monocyte %.[facility] HospitalNatriuretic peptide B [Mass/Vol]Ordered By: Roland Faust on 54-16-3581Svdjyzuqohl peptide B (Bld) [Mass/Vol]BNP ser/plas5-100[facility] Neutrophils Auto (Bld) [#/Vol]Ordered By: Nataliya Jane on 95-78-6008Mrzeovrrbru (Bld) [#/Vol]Neutrophils [#/volume] in Blood by Automated count1.8-7.7FAshtabula County Medical CenterNeutrophils/100 WBC Auto (Bld)Ordered By: Nataliya Jane on 65-66-0949Bepemfowspx/100 WBC (Bld)Automated neutrophil %.[facility] HospitalNo Panel InformationOrdered By: Angelique Russell on 06-26-2024 Estimated GFR (CKD-EPI)> 60.0 mL/MinLancaster Municipal HospitalPharmacy Creatinine Clearance (ChemN/AFAshtabula County Medical CenterNo Panel InformationOrdered By: Nataliya Jane on 30-18-3741OOL/ablSee commentLancaster Municipal HospitalComment on above:See report. Scanned copy available in EMR.JAK2 [id number] [facility] VA Medical CenterComment on above:See report. Scanned copy available in EMR.Nucleated erythrocytes [Presence] in Blood by Automated countOrdered By: Nataliya Jane on 70-98-6467Mecvsipoi RBC Auto Ql (Bld)Nucleated erythrocytes [Presence] in Blood by Automated count0-0.5FAshtabula County Medical CenterPlatelet mean volume Auto (Bld) [Entitic vol]Ordered By: Nataliya Jane on 88-10-6221Hbqdcwsx mean volume (Bld) [Entitic vol]Platelet mean volume [Entitic volume] in Blood by Automated count6.3-10.7FAshtabula County Medical CenterPlatelets Auto (Bld) [#/Vol]Ordered By: Nataliya Jane on 73-55-3268Iyvxqlqse (Bld) [#/Vol]Platelets [#/volume] in Blood by Automated wupyfRqe271-109QmilaylepLancaster Municipal HospitalPotassium [Moles/volume] in Serum or PlasmaOrdered By: Barbera Yvonne on 48-37-6437Dktxeymqo [Moles/Vol] Potassium [Moles/volume] in Serum or Plasma3.5-5.1FAshtabula County Medical CenterProtein [Mass/volume] in Serum or PlasmaOrdered By: Barbera Yvonne on 06-00-0181Wbuvsoe [Mass/Vol]Protein [Mass/volume] in Serum or Plasma6.4-8.9 [facility] HospitalRBC Auto (Bld) [#/Vol]Ordered By: Nataliya Jane on 66-21-0900PNY (Bld) [#/Vol]Erythrocytes [#/volume] in Blood by Automated count3.60-5.00McKitrick Hospitalerum or plasma albumin/globulin mass ratioOrdered By: Barbera Mapus on 18-05-8605Tvyhdcj/Globulin [Mass ratio] Serum or plasma albumin/globulin mass ratioLancaster Municipal Hospital Serum or plasma anion gap determinationOrdered By: Tondra Mapus on 06-26-2024 Anion gap [Moles/Vol]Serum or plasma anion gap determination6.0-15.0McKitrick Hospitalerum or plasma total cholesterol/high density lipoprotein (HDL) cholesterol mass ratOrdered By: Tondra Mapus on 06-26-2024 Cholesterol.total/Cholesterol in HDL [Mass ratio]Serum or plasma total cholesterol/high density lipoprotein (HDL) cholesterol mass rat<5.0McKitrick Hospitalodium [Moles/volume] in Serum or PlasmaOrdered By: Juliodra Mapus on 76-96-7148Rdrnmv [Moles/Vol]Sodium [Moles/volume] in Serum or Tvxspb109-798NmmfrtttyLancaster Municipal HospitalThyroid Stim Hormone w/Rflxon 37-31-6178Alankcv Stim Hormone w/Rflx1.45 u[iU]/mLNormal0.45-5.33The [facility] Physician GroupComment on above:Result Comment: PERFORMED BY: [facility] [address] [place] [address] PATHOLOGIST CIGARETTE VENDOR LE MACE M.D.Performed By: #### CMP, MG, PHOS, CBC #### [facility] [address] [place] [address] USAThyrotropin [Units/volume] in Serum or PlasmaOrdered By: Angelique Russell on 63-04-4995CEA QnThyrotropin [Units/volume] in Serum or Plasma 0.45-5.33[facility] HospitalTriglyceride [Mass/volume] in Serum or PlasmaOrdered By: Angelique Russell on 65-51-8001Itkcxoalrryb [Mass/Vol]Triglyceride [Mass/volume] in Serum or PlasmaHigh0-149[facility] Comment on above:TRIG ATP III CLASSIFICATIONTRIG less than 150 mg/dL NormalTRIG 150-199 mg/dL Borderline highTRIG 200-500 mg/dL High TRIG greater than 500 mg/dL Very highStandard traceable to the Center for Disease Conrtrol and Prevention (CDC) test method.Urea nitrogen [Mass/volume] in Serum or PlasmaOrdered By: Angelique Russell on 20-25-2248Nxjf nitrogen [Mass/Vol]Urea nitrogen [Mass/volume] in Serum or Plasma7-25[facility] HospitalUrine microalbumin/creatinine mass ratioOrdered By: Angelique Russell on 06-26-2024 Albumin/Creatinine DL <= 20 mg/L (U) [Mass ratio]Urine microalbumin/creatinine mass ratioLancaster Municipal HospitalComment on above:Test not performed WBC Auto (Bld) [#/Vol]Ordered By: Nataliya Jane on 09-17-7366NWY (Bld) [#/Vol] Leukocytes [#/volume] in Blood by Automated count3.8-11.6FAshtabula County Medical CenterMR head/brain wo/w conon 97-12-6874LW head/brain wo/w [facility] [place] [address] [place] [address] MRI Report Signed Patient: Taye Gay MR#: [id number] 19 : 1955 Acct:[id number] Age/Sex: 68 / F ADM Date: 05/25/24 Loc: MR Room: Type: [facility] Attending Dr: Sandra Keita DO Copies [...] Eugenio Lazo M.D.05/25/2024 7:59 PM Dictation Location: [place] [address] Transcribed By: [facility] 05/25/241958 Dictated By: Eugenio Lazo DO 05/25/241953 Signed By: 05/25/241958[facility] Physician GroupSummit Healthcare Regional Medical Centeretic resonance imaging reportOrdered By: Eugenio Lazo on 88-76-7500Sluvn reportVAN WERT COUNTY [facility] Main [place] [address] [place], [place] [id number] MRI Report Signed Patient: Taye Gay MR#: [id number] : 1955 Acct:[id number] Age/Sex: 68 / F ADM Date: 5 Loc: MR Room: Type: [facility] Attending Dr: Sandra Keita DO Copies [...] Eugenio Lazo M.D.05/25/2024 7:59 PM Dictation Location: [place] [address] Transcribed By: [facility] 05/25/241958 Dictated By: Eugenio Lazo DO 05/25/241953 Signed By: 05/25/241958 [facility] HospitalAlanine aminotransferase [Enzymatic activity/volume] in Serum or PlasmaOrdered By: Priscilla Lang on 1957SJM [Catalytic activity/Vol]Alanine aminotransferase [Enzymatic activity/volume] in Serum or Plasma7-[facility] HospitalAlbumin [Mass/volume] in Serum or Plasma by Bromocresol green (BCG) dye binding methoOrdered By: Priscilla Lang on 09-54-2922Rovcsku BCG dye [Mass/Vol]Albumin [Mass/volume] in Serum or Plasma by Bromocresol green (BCG) dye binding metho3.5-5.7FAshtabula County Medical CenterAlkaline phosphatase [Enzymatic activity/volume] in Serum or PlasmaOrdered By: Priscilla Lang on 11-84-9976CRC [Catalytic activity/Vol] Alkaline phosphatase [Enzymatic activity/volume] in Serum or Whzzcg04-375 [facility] HospitalAspartate aminotransferase [Enzymatic activity/volume] in Serum or PlasmaOrdered By: Priscilla Lang on 35-34-9598DUQ [Catalytic activity/Vol]Aspartate aminotransferase [Enzymatic activity/volume] in Serum or Yyyuju20-64UrvzsjfmsLancaster Municipal HospitalBasophils Auto (Bld) [#/Vol]Ordered By: Priscilla Lang on 36-58-7370Emaypsqjt (Bld) [#/Vol]Automated basophil count0.0-0.2FAshtabula County Medical CenterBasophils/100 WBC Auto (Bld)Ordered By: Priscilla Lang on 54-66-4625Pjlydjbzh/100 WBC (Bld)Automated basophil %.[facility] HospitalBilirubin.total [Mass/volume] in Serum or PlasmaOrdered By: Priscilla Lang on 74-30-7590Davyhvrom [Mass/Vol] Bilirubin.total [Mass/volume] in Serum or Plasma0.3-1.0[facility] HospitalCalcium [Mass/volume] in Serum or PlasmaOrdered By: Priscilla Lang on 69-91-2241Iyatllv [Mass/Vol]Calcium [Mass/volume] in Serum or Plasma8.6-10.3 [facility] HospitalCarbon dioxide, total [Moles/volume] in Serum or PlasmaOrdered By: Priscilla Lang on 58-90-2328QP6 [Moles/Vol]Carbon dioxide, total [Moles/volume] in Serum or Frsycn61.0-31.0[facility] HospitalChloride [Moles/volume] in Serum or PlasmaOrdered By: Priscilla Lang on 62-40-8133Rqsnbxbu [Moles/Vol]Chloride [Moles/volume] in Serum or Dbkjsx06-379 [facility] HospitalComplete Blood Count Auto Diffon 04-30-2024 Basophils (Bld) [#/Vol]0.0 10*3/uLNormal0.0-0.2[facility] Comment on above:Result Comment: PERFORMED BY: [facility] [address] [place] [address] PATHOLOGIST CIGARETTE VENDOR LE MACE M.D.Performed By: #### CMP, MG, PHOS, CBC #### [place] [address] USABasophils/100 WBC (Bld)0.4 %Normal.The [facility] Physician GroupComment on above:Performed By: #### CMP, MG, PHOS, CBC #### [place] [address] USAEosinophils (Bld) [#/Vol]0.2 10*3/uLNormal0.0-0.45The [facility] Physician GroupComment on above:Performed By: #### CMP, MG, PHOS, CBC #### [place] [address] USAEosinophils/100 WBC (Bld)2.9 %Normal.The [facility] Physician GroupComment on above:Performed By: #### CMP, MG, PHOS, CBC #### [place] [address] USAErythrocyte distribution width (RBC) [Ratio]15.4 %High 11.9-15.3The [facility] Physician GroupComment on above:Performed By: #### CMP, MG, PHOS, CBC #### [place] [address] USAHematocrit (Bld) [Volume fraction]44.3 %Ogoytc41.0-46.4The [facility] Physician GroupComment on above:Performed By: #### CMP, MG, PHOS, CBC #### [place] [address] USAHemoglobin (Bld) [Mass/Vol]14.7 g/xCJugtus42.8-15.4The [facility] Physician GroupComment on above:Performed By: #### CMP, MG, PHOS, CBC #### [place] [address] USALymphocytes (Bld) [#/Vol]1.8 10*3/uLNormal1.00-4.8The [facility] Physician GroupComment on above:Performed By: #### CMP, MG, PHOS, CBC #### [place] [address] USALymphocytes/100 WBC (Bld)24.9 %Normal.The [facility] Physician GroupComment on above:Performed By: #### CMP, MG, PHOS, CBC #### [address] (RBC) [Entitic mass]31.4 qiHoyflq34.7-34.3The [facility] Physician GroupComment on above:Performed By: #### CMP, MG, PHOS, CBC #### [address] (RBC) [Entitic vol]94.4 oGHobxoa32-004Ybm [facility] Physician GroupComment on above:Performed By: #### CMP, MG, PHOS, CBC #### [place] [address] USAMean Corpuscular HGB Conc33.3 g/sJHufzxo38.0-35.0The [facility] Physician GroupComment on above:Performed By: #### CMP, MG, PHOS, CBC #### [place] [address] USAMonocytes (Bld) [#/Vol]0.6 10*3/uLNormal0.0-0.8The [facility] Physician GroupComment on above:Performed By: #### CMP, MG, PHOS, CBC #### [place] [address] USAMonocytes/100 WBC (Bld)8.3 %Normal.The [facility] Physician GroupComment on above:Performed By: #### CMP, MG, PHOS, CBC #### [place] [address] USANeutrophils (Bld) [#/Vol]4.6 10*3/uLNormal1.8-7.7The [facility] Physician GroupComment on above:Performed By: #### CMP, MG, PHOS, CBC #### [place] [address] USANeutrophils/100 WBC (Bld)63.5 %Normal.The [facility] Physician GroupComment on above:Performed By: #### CMP, MG, PHOS, CBC #### [facility] [address] [place] [address] USANRBC%0.0 /100{WBC}Normal0-0.5The [facility] Comment on above:Performed By: #### CMP, MG, PHOS, CBC #### [place] [address] USAPlatelet mean volume (Bld) [Entitic vol]9.5 fLNormal 6.3-10.7The [facility] Physician GroupComment on above:Performed By: #### CMP, MG, PHOS, CBC #### [place] [address] USAPlatelets (Bld) [#/Vol]119 10*3/rIOhp014-316Sgu [facility] Physician GroupComment on above:Performed By: #### CMP, MG, PHOS, CBC #### [place] [address] USARBC (Bld) [#/Vol]4.70 10*6/uLNormal3.60-5.00The [facility] Physician GroupComment on above:Performed By: #### CMP, MG, PHOS, CBC #### [place] [address] USAWBC (Bld) [#/Vol]7.3 10*3/uLNormal3.8-11.6The [facility] Physician GroupComment on above:Performed By: #### CMP, MG, PHOS, CBC #### [place] [address] USAComprehensive Metabolic Panelon 42-70-6470Ldhsrdx [Mass/Vol]3.5 g/dLNormal3.5-5.7The [facility] Physician GroupComment on above: Performed By: #### CMP, MG, PHOS, CBC #### [facility] [address] [place] [address] USAAlbumin/Globulin [Mass ratio]1.2 {ratio}NormalThe [facility] Physician GroupComment on above:Performed By: #### CMP, MG, PHOS, CBC #### [facility] [address] [place] [address] USAALP [Catalytic activity/Vol]85 U/GGxszbh60-303Uab [facility] Physician GroupComment on above:Performed By: #### CMP, MG, PHOS, CBC #### [facility] [address] [place] [address] USAALT [Catalytic activity/Vol]16 U/LNormal7-52The [facility] Physician GroupComment on above:Performed By: #### CMP, MG, PHOS, CBC #### [facility] [address] [place] [address] USAAnion gap [Moles/Vol]10.9 mmol/LNormal6.0-15.0The [facility] Physician GroupComment on above:Performed By: #### CMP, MG, PHOS, CBC #### [facility] [address] [place] [address] USAAST [Catalytic activity/Vol]23 U/JHwjmww58-21Kvh [facility] Physician GroupComment on above:Performed By: #### CMP, MG, PHOS, CBC #### [facility] [address] [place] [address] USABilirubin [Mass/Vol]0.5 mg/dLNormal0.3-1.0The [facility] Physician GroupComment on above:Performed By: #### CMP, MG, PHOS, CBC #### [facility] [address] [place] [address] USACalcium [Mass/Vol]9.3 mg/dLNormal8.6-10.3The [facility] Physician GroupComment on above:Performed By: #### CMP, MG, PHOS, CBC #### [facility] [address] [place] [address] USAChloride [Moles/Vol]106 mmol/DFpryay12-009Xdd [facility] Physician GroupComment on above:Performed By: #### CMP, MG, PHOS, CBC #### [facility] [address] [place] [address] USACO2 [Moles/Vol]26.9 mmol/XLpymba93.0-31.0[facility] Physician GroupComment on above:Performed By: #### CMP, MG, PHOS, CBC #### [facility] [address] [place] [address] USACreatinine [Mass/Vol]0.80 mg/dLNormal0.60-1.20The [facility] Physician GroupComment on above:Performed By: #### CMP, MG, PHOS, CBC #### [facility] [address] [place] [address] USACreatinine Clr Calc Ojxzgbnu76.38NoFrye Regional Medical Center Physician GroupComment on above:Performed By: #### CMP, MG, PHOS, CBC #### [place] [address] USAGFR/1.73 sq M.predicted MDRD (S/P/Bld) [Vol rate/Area] mL/min/{1.73_m2}NormalThe [facility] Physician GroupComment on above:Performed By: #### CMP, MG, PHOS, CBC #### [place] [address] USAGlobulin (S) [Mass/Vol]2.9 g/dLNoFrye Regional Medical Center Physician GroupComment on above:Performed By: #### CMP, MG, PHOS, CBC #### [place] [address] USAGlucose [Mass/Vol]130 mg/kYDytg50-390Hwo [facility] Physician GroupComment on above:Result Comment: Random Glucose Reference Range is dependent on time and content of last meal. Glucose of more than 200 mg/dL in a nonstressed, ambulatory subject supports the diagnosis of Diabetes Mellitus. ADA recommended reference rangePerformed By: #### CMP, MG, PHOS, CBC #### [place] [address] USAPotassium [Moles/Vol]3.8 mmol/LNormal3.5-5.1The [facility] Physician GroupComment on above:Performed By: #### CMP, MG, PHOS, CBC #### [facility] [address] [place] [address] USAProtein [Mass/Vol]6.4 g/dLNormal6.4-8.9The [facility] Physician GroupComment on above:Performed By: #### CMP, MG, PHOS, CBC #### [facility] [address] [place] [address] USASodium [Moles/Vol]140 mmol/KNtkdbl314-625Urw [facility] Physician GroupComment on above:Performed By: #### CMP, MG, PHOS, CBC #### [facility] [address] [place] [address] USAUrea nitrogen [Mass/Vol]9 mg/dLNormal7-25The [facility] Physician GroupComment on above:Performed By: #### CMP, MG, PHOS, CBC #### [facility] [address] [place] [address] USACreatinine [Mass/volume] in Serum or PlasmaOrdered By: Priscilla Lang on 42-51-1654Jblznvpdru [Mass/Vol]Creatinine [Mass/volume] in Serum or Plasma0.60-1.20[facility] HospitalEosinophils Auto (Bld) [#/Vol]Ordered By: Priscilla Lang on 75-83-4083Razrscpiids (Bld) [#/Vol]Automated eosinophil count0.0-0.45[facility] HospitalEosinophils/100 WBC Auto (Bld)Ordered By: Priscilla Lang on 38-07-3166Mimdogdzvct/100 WBC (Bld) Automated eosinophil %.[facility] HospitalErythrocyte distribution width Auto (RBC) [Ratio]Ordered By: Priscilla Lang on 01-58-5631Vzrjkntclzz distribution width (RBC) [Ratio]Erythrocyte distribution width [Ratio] by Automated nvhgyIrzv47.9-15.3FAshtabula County Medical CenterGlobulin Calc (S) [Mass/Vol]Ordered By: Priscilla Lang on 44-26-7220Xvssacoa (S) [Mass/Vol]Serum globulin measurement by calculation (mass/volume)[facility] HospitalGlucose Glucometer (BldC) [Mass/Vol]Ordered By: Priscilla Lang on 76-07-4389Vbqwmju [Mass/Vol]Capillary blood glucose measurement by glucometer (mass/volume)[facility] HospitalComment on above:Random Glucose Reference Range is dependent on time and content of last meal. Glucose of more than 200 mg/dL in a nonstressed, ambulatory subject supports the diagnosis of Diabetes Mellitus.Glucose Poct Glucometerson 59-96-8874Nqulipg [Mass/Vol]154 mg/dLNoFrye Regional Medical Center Physician GroupComment on above:Result Comment: Random Glucose Reference Range is dependent on time and content of last meal. Glucose of more than 200 mg/dL in a nonstressed, ambulatory subject supports the diagnosis of Diabetes Mellitus. PERFORMED BY: [place] [address] PATHOLOGIST CIGARETTE VENDOR LE MACE M.D.Performed By: #### CMP, MG, PHOS, CBC #### [facility] [address] [place] [address] USAGlucose [Mass/Vol]134 mg/dLNoFrye Regional Medical Center Physician [facility] CenterComment on above:Result Comment: Random Glucose Reference Range is dependent on time and content of last meal. Glucose of more than 200 mg/dL in a nonstressed, ambulatory subject supports the diagnosis of Diabetes Mellitus. PERFORMED BY: [facility] [address] [place] [address] PATHOLOGIST CIGARETTE VENDOR LE MACE M.D.Performed By: #### CMP, MG, PHOS, CBC #### [facility] [address] [place] [address] USAGlucose [Mass/volume] in Serum or PlasmaOrdered By: Priscilla Lang on 02-01-9607Ktgbwfc [Mass/Vol]Glucose [Mass/volume] in Serum or Plasma Unrs16-408WckmseteaLancaster Municipal HospitalComment on above:ADA recommended reference rangeRandom Glucose Reference Range is dependent on time and content of last meal. Glucose of more than 200 mg/dL in a nonstressed, ambulatory subject supports the diagnosisof Diabetes Mellitus.Hematocrit Auto (Bld) [Volume fraction]Ordered By: Priscilla Lang on 62-89-1852Dxjgvqwqtp (Bld) [Volume fraction]Hematocrit [Volume Fraction] of Blood by Automated count34.0-46.4 [facility] HospitalHemoglobin [Mass/volume] in BloodOrdered By: Priscilla Lang on 31-71-9718Mndvdzuicv (Bld) [Mass/Vol]Hemoglobin [Mass/volume] in Blood11.8-15.4FAshtabula County Medical CenterLeukocytes [#/volume] corrected for nucleated erythrocytes in Blood by Automated counOrdered By: Priscilla Lang on 28-47-4834QEA corrected for nucl RBC Auto (Bld) [#/Vol]Leukocytes [#/volume] corrected for nucleated erythrocytes in Blood by Automated coun 3.8-11.6FAshtabula County Medical CenterLymphocytes Auto (Bld) [#/Vol]Ordered By: Priscilla Lang on 19-80-1016Nnfpjvzhpac (Bld) [#/Vol]Lymphocytes [#/volume] in Blood by Automated count1.00-4.8[facility] Lymphocytes/100 WBC Auto (Bld)Ordered By: Priscilla Lang on 04-30-2024 Lymphocytes/100 WBC (Bld)Lymphocytes/100 leukocytes in Blood by Automated count. [facility] HospitalMCH Auto (RBC) [Entitic mass]Ordered By: Priscilla Lang on 42-99-8834SMD (RBC) [Entitic mass]MCH [Entitic mass] by Automated count24.7-34.3FAshtabula County Medical CenterMCHC Auto (RBC) [Mass/Vol]Ordered By: Priscilla Lang on 73-27-7987SUWS (RBC) [Mass/Vol]MCHC [Mass/volume] by Automated count32.0-35.0[facility] HospitalMCV Auto (RBC) [Entitic vol]Ordered By: Priscilla Lang on 20-54-5621DNE (RBC) [Entitic vol]MCV [Entitic volume] by Automated ixnmn83-652ErepgrwnjLancaster Municipal HospitalMagnesiumon 17-73-3309Huowunwil [Mass/Vol]1.7 mg/dLLow1.9-2.7The [facility] Comment on above:Result Comment: PERFORMED BY: [facility] [address] [place] [id number] PATHOLOGIST CIGARETTE VENDOR LE MACE M.D.Performed By: #### CMP, MG, PHOS, CBC #### [facility] [address] [place] [address] USAMagnesium [Mass/volume] in Serum or PlasmaOrdered By: Priscilla Lang on 79-90-9472Ujqytzcmw [Mass/Vol]Magnesium [Mass/volume] in Serum or PlasmaLow1.9-2.7FAshtabula County Medical CenterMonocytes Auto (Bld) [#/Vol] Ordered By: Priscilla Lang on 99-58-7515Zhaflxhzs (Bld) [#/Vol]Automated blood monocyte count0.0-0.8[facility] HospitalMonocytes/100 WBC Auto (Bld)Ordered By: Priscilla Lang on 55-18-2174Nizigelxv/100 WBC (Bld)Automated monocyte %.[facility] HospitalNeutrophils Auto (Bld) [#/Vol] Ordered By: Priscilla Lang on 16-30-7026Vbzxtlgotvx (Bld) [#/Vol]Neutrophils [#/volume] in Blood by Automated count1.8-7.7FAshtabula County Medical Center Neutrophils/100 WBC Auto (Bld)Ordered By: Priscilla Lang on 04-30-2024 Neutrophils/100 WBC (Bld)Automated neutrophil %.[facility] HospitalNo Panel InformationOrdered By: Priscilla Lang on 58-67-2668Pszsijmwz GFR (CKD-EPI)> 60.0 mL/MinLancaster Municipal HospitalPharmacy Creatinine Clearance (Chem82.38[facility] HospitalNucleated erythrocytes [Presence] in Blood by Automated countOrdered By: Priscilla Lang on 04-30-2024 Nucleated RBC Auto Ql (Bld)Nucleated erythrocytes [Presence] in Blood by Automated count0-0.5FAshtabula County Medical CenterPhosphate [Mass/volume] in Serum or PlasmaOrdered By: Priscilla Lang on 89-56-1281Jaekjwwwm [Mass/Vol] Phosphate [Mass/volume] in Serum or Plasma2.5-4.5FAshtabula County Medical CenterPhosphoruson 56-70-1774Lybiyxdcd [Mass/Vol]2.9 mg/dLNormal2.5-4.5The [facility] Physician GroupComment on above:Performed By: #### CMP, MG, PHOS, CBC #### [facility] [address] [place] [address] USAPlatelet mean volume Auto (Bld) [Entitic vol]Ordered By: Priscilla Lang on 59-20-5912Zdoirroe mean volume (Bld) [Entitic vol]Platelet mean volume [Entitic volume] in Blood by Automated count6.3-10.7FAshtabula County Medical CenterPlatelets Auto (Bld) [#/Vol]Ordered By: Priscilla Lang on 06-27-6753Djqlnyuxd (Bld) [#/Vol]Platelets [#/volume] in Blood by Automated bswrdWfc523-670HojkmlwiqLancaster Municipal HospitalPotassium [Moles/volume] in Serum or PlasmaOrdered By: Priscilla Lang on 1957Nlkbinhso [Moles/Vol] Potassium [Moles/volume] in Serum or Plasma3.5-5.1FAshtabula County Medical CenterProtein [Mass/volume] in Serum or PlasmaOrdered By: Priscilla Lang on 79-56-5041Spxvwca [Mass/Vol]Protein [Mass/volume] in Serum or Plasma6.4-8.9 [facility] HospitalRBC Auto (Bld) [#/Vol]Ordered By: Priscilla Lang on 55-81-6342DYA (Bld) [#/Vol]Erythrocytes [#/volume] in Blood by Automated count3.60-5.00McKitrick Hospitalerum or plasma albumin/globulin mass ratioOrdered By: Priscilla Lang on 54-51-9671Wknallt/Globulin [Mass ratio] Serum or plasma albumin/globulin mass ratioLancaster Municipal Hospital Serum or plasma anion gap determinationOrdered By: Priscilla Lang on 04-30-2024 Anion gap [Moles/Vol]Serum or plasma anion gap determination6.0-15.0McKitrick Hospitalodium [Moles/volume] in Serum or PlasmaOrdered By: Priscilla Lang on 98-84-4692Cnzobd [Moles/Vol]Sodium [Moles/volume] in Serum or Plasma 136-145[facility] HospitalUrea nitrogen [Mass/volume] in Serum or PlasmaOrdered By: Priscilla Lang on 12-84-7610Cuxg nitrogen [Mass/Vol]Urea nitrogen [Mass/volume] in Serum or Plasma7-25[facility] WBC Auto (Bld) [#/Vol]Ordered By: Priscilla Lang on 32-15-9838URP (Bld) [#/Vol] Leukocytes [#/volume] in Blood by Automated count3.8-11.6FAshtabula County Medical CenterAmphetamine Screen Ql (U)Ordered By: Priscilla Lang on 04-29-2024 Amphetamines Ql (U)Amphetamines screenNegativeLancaster Municipal Hospital Barbiturates [Presence] in Urine by Screen methodOrdered By: Priscilla Lang on 68-30-5987Vtqfswajoszc Screen Ql (U)Barbiturates [Presence] in Urine by Screen methodNegativeLancaster Municipal HospitalBasic Metabolic Panelon 64-83-5393Fksbx gap [Moles/Vol]11.3 mmol/LNormal6.0-15.0The [facility] Physician GroupComment on above:Order Comment: FASTING NPerformed By: #### CMP, MG, PHOS, CBC #### [facility] [address] [place] [address] USACalcium [Mass/Vol]8.9 mg/dLNormal8.6-10.3The [facility] Physician GroupComment on above:Order Comment: FASTING NPerformed By: #### CMP, MG, PHOS, CBC #### [facility] [address] [place] [id number] USAChloride [Moles/Vol]106 mmol/VEkmczl90-821Rda [facility] Physician GroupComment on above:Order Comment: FASTING NPerformed By: #### CMP, MG, PHOS, CBC #### [facility] [address] [place] [address] USACO2 [Moles/Vol]25.2 mmol/CQopfty87.0-31.0The [facility] Physician GroupComment on above:Order Comment: FASTING NPerformed By: #### CMP, MG, PHOS, CBC #### [facility] [address] [place] [address] USACreatinine [Mass/Vol]0.85 mg/dLNormal0.60-1.20The [facility] Physician GroupComment on above:Order Comment: FASTING NPerformed By: #### CMP, MG, PHOS, CBC #### [facility] [address] [place] [address] USACreatinine Clr Calc Gapthzqb89.21NormalThe [facility] Physician GroupComment on above:Order Comment: FASTING NPerformed By: #### CMP, MG, PHOS, CBC #### [place] [address] USAGFR/1.73 sq M.predicted MDRD (S/P/Bld) [Vol rate/Area] mL/min/{1.73_m2}NormalThe [facility] Physician GroupComment on above:Order Comment: FASTING NPerformed By: #### CMP, MG, PHOS, CBC #### [place] [address] USAGlucose [Mass/Vol]206 mg/nSMfwo29-520Soh [facility] Physician GroupComment on above:Order Comment: FASTING NResult Comment: Random Glucose Reference Range is dependent on time and content of last meal. Glucose of more than 200 mg/dL in a nonstressed, ambulatory subject supports the diagnosis of Diabetes Mellitus. ADA recommended reference rangePerformed By: #### CMP, MG, PHOS, CBC #### [place] [address] USAPotassium [Moles/Vol]3.5 mmol/LNormal3.5-5.1The [facility] Physician GroupComment on above:Order Comment: FASTING NPerformed By: #### CMP, MG, PHOS, CBC #### [address] [place] [address] USASodium [Moles/Vol]139 mmol/HTmznpy733-265Ogk [facility] Physician GroupComment on above:Order Comment: FASTING NPerformed By: #### CMP, MG, PHOS, CBC #### [facility] [address] [place] [id number] USAUrea nitrogen [Mass/Vol]9 mg/dLNormal7-25The [facility] Physician GroupComment on above:Order Comment: FASTING NPerformed By: #### CMP, MG, PHOS, CBC #### [facility] [address] [place] [id number] USABenzodiazepines Screen Ql (U)Ordered By: Priscilla Lang on 52-64-0046Rzirccqgfqzwiwk Ql (U)Benzodiazepines [Presence] in Urine by Screen methodNegativeLancaster Municipal HospitalBenzoylecgonine [Presence] in Urine by Screen methodOrdered By: Priscilla Lang on 80-49-6735Qnlddccpaxedclh Screen Ql (U)Benzoylecgonine [Presence] in Urine by Screen methodNegative [facility] HospitalCannabinoids [Presence] in Urine by Screen methodOrdered By: Priscilla Lang on 61-52-0479Nxwuuobehxlc Screen Ql (U) Cannabinoids [Presence] in Urine by Screen methodNegativeLancaster Municipal HospitalComment on above:These are unconfirmed results and should not be used for legal purposes. Drug Cut-Off Concentration: AMPH 1000 ng/mL KENDRICK 200 ng/mL HEATHER 200 ng/mL COCM 300 ng/mL OP 300 ng/mL PCP 25 ng/mL THC 20 ng/mL Cholesterol [Mass/volume] in Serum or PlasmaOrdered By: Jori Hearn on 91-32-5211Jmupfchvamx [Mass/Vol]Cholesterol [Mass/volume] in Serum or PlasmaLow 140-200L[facility] HospitalComment on above:Chol less than 200 mg/dl low riskChol 201-239 mg/dl borderline riskChol 240 mg/dl and greater high riskCholesterol in HDL [Mass/volume] in Serum or PlasmaOrdered By: Jori Hearn on 94-05-4804Dorqwuzskad in HDL [Mass/Vol]Serum or plasma high density lipoprotein (HDL) cholesterol wifuywlpyyq11-27CtehzyxlcLancaster Municipal Hospital Comment on above:HDL CHOL ATP-III CLASSIFICATION Cardiovascular RiskHDL > or equal to 60 mg/dL LOWHDL < 40 mg/dL HIGHCholesterol in LDL Calc [Mass/Vol] Ordered By: Jori Hearn on 12-38-1956Vnucbeghxim in LDL [Mass/Vol]Cholesterol in LDL [Mass/volume] in Serum or Plasma by calculationLancaster Municipal HospitalComment on above:LDL ATP III CLASSIFICATIONLDL less than 100 mg/dL OptimalLDL 100-129 mg/dL Near or above oicflotNKT193-777 mg/dL Borderline highLDL 160-189 mg/dL HighLDL greater than 189 mg/dL Very highCholesterol in VLDL Calc [Mass/Vol]Ordered By: Jori Hearn on 82-39-2048Ajybkrecnju in VLDL [Mass/Vol]Cholesterol in VLDL [Mass/volume] in Serum or Plasma by calculation [facility] HospitalDrug Screen,Urineon 60-65-3538Uudocgckqqn Screen,UrineNegativeNormalNegativeThe [facility] Physician GroupComment on above: Performed By: #### CMP, MG, PHOS, CBC #### [facility] [address] [place] [address] USABarbiturate Screen,UrineNegativeNormalNegativeThe [facility] Physician GroupComment on above:Performed By: #### CMP, MG, PHOS, CBC #### [facility] [address] [place] [address] USABenzodiazepines Screen,UrineNegativeNormalNegativeThe [facility] Physician GroupComment on above:Performed By: #### CMP, MG, PHOS, CBC #### [facility] [address] [place] [id number] USACannabinoid Screen,UrineNegativeNormalNegativeThe [facility] Physician GroupComment on above:Result Comment: These are unconfirmed results and should not be used for legal purposes. Drug Cut-Off Concentration: AMPH 1000 ng/mL KENDRICK 200 ng/mL HEATHER 200 ng/mL COCM 300 ng/mL OP 300 ng/mL PCP 25 ng/mL THC 20 ng/mL PERFORMED BY: [place] [address] PATHOLOGIST [employer] V[employer]OR LE MACE M.D.Performed By: #### CMP, MG, PHOS, CBC #### [place] [address] USACocaine Screen,UrineNegativeNormalNegativeRiver Point Behavioral Health Physician GroupComment on above:Performed By: #### CMP, MG, PHOS, CBC #### [place] [address] USAOpiate Screen,UrineNegativeNormalNegativeRiver Point Behavioral Health Physician GroupComment on above:Performed By: #### CMP, MG, PHOS, CBC #### [place] [address] USAPhencyclidine Screen,UrineNegativeNormalNegativeRiver Point Behavioral Health Physician GroupComment on above:Performed By: #### CMP, MG, PHOS, CBC #### [place] [address] USAGlucose Poct Glucometerson 83-45-8480Lrgagkl [Mass/Vol]165 mg/dLNoFrye Regional Medical Center Physician [facility] CenterComment on above:Result Comment: Random Glucose Reference Range is dependent on time and content of last meal. Glucose of more than 200 mg/dL in a nonstressed, ambulatory subject supports the diagnosis of Diabetes Mellitus. PERFORMED BY: [place] [address] PATHOLOGIST [employer]AR[employer] VENDOR [employer] MACE M.D.Performed By: #### CMP, MG, PHOS, CBC #### [place] [address] JPGEeviyxk1Xvu2: Cleaned MeterNoFrye Regional Medical Center Physician [facility] CenterComment on above:Result Comment: PERFORMED BY: [place] [address] PATHOLOGIST [employer]AR[employer] VENDOR LE MACE M.D.Performed By: #### GLULS #### Point of Care testing ,Glucose [Mass/Vol]188 mg/dLHCA Florida JFK North Hospital Physician GroupComment on above: Result Comment: Random Glucose Reference Range is dependent on time and content of last meal. Glucose of more than 200 mg/dL in a nonstressed, ambulatory subject supports the diagnosis of Diabetes Mellitus.Performed By: #### GLULS #### Point of Care testing ,Atanosk6Yxa8: Cleaned MeterNoFrye Regional Medical Center Physician GroupComment on above: Result Comment: PERFORMED BY: [place] [address] PATHOLOGIST [employer] VENDOR LE MACE M.D.Performed By: #### CMP, MG, PHOS, CBC #### [place] [address] USAGlucose [Mass/Vol]192 mg/dLHCA Florida JFK North Hospital Physician GroupComment on above:Result Comment: Random Glucose Reference Range is dependent on time and content of last meal. Glucose of more than 200 mg/dL in a nonstressed, ambulatory subject supports the diagnosis of Diabetes Mellitus.Performed By: #### CMP, MG, PHOS, CBC #### [place] [address] USAGlucose [Mass/Vol]210 mg/dLNoFrye Regional Medical Center Physician GroupComment on above:Result Comment: Random Glucose Reference Range is dependent on time and content of last meal. Glucose of more than 200 mg/dL in a nonstressed, ambulatory subject supports the diagnosis of Diabetes Mellitus. PERFORMED BY: [place] [address] PATHOLOGIST C[employer] VENDOR [employer] MACE M.D.Performed By: #### CMP, MG, PHOS, CBC #### [place] [address] USALipid Panelon 85-90-6759Ehbmgkzjwsx [Mass/Vol]106 mg/dLLow 140-200The [facility] Physician GroupComment on above:Order Comment: FASTING N Result Comment: Chol less than 200 mg/dl low risk Chol 201-239 mg/dl borderline risk Chol 240 mg/dl and greater high riskPerformed By: #### CMP, MG, PHOS, CBC #### [facility] [address] [place] [address] USACholesterol in HDL [Mass/Vol]31 mg/uCZrfzrb34-03Aqf [facility] Physician GroupComment on above:Order Comment: FASTING NResult Comment: HDL CHOL ATP-III CLASSIFICATION Cardiovascular Risk HDL > or equal to 60 mg/dL LOW HDL < 40 mg/dL HIGHPerformed By: #### CMP, MG, PHOS, CBC #### [facility] [address] [place] [address] USACholesterol.total/Cholesterol in HDL [Mass ratio]3.4 {ratio}Normal<5.0The [facility] Physician GroupComment on above:Order Comment: FASTING NResult Comment: PERFORMED BY: [place] [address] PATHOLOGIST [employer] V[employer]OR [employer] MACE M.D.Performed By: #### CMP, MG, PHOS, CBC #### [place] [id number] USALDL Cholesterol,Abjcydwtdh71 mg/dLNormal0-100The [facility] Physician GroupComment on above:Order Comment: FASTING NResult Comment: LDL ATP III CLASSIFICATION LDL less than 100 mg/dL Optimal LDL 100-129 mg/dL Near or above optimal LDL 130-159 mg/dL Borderline high LDL 160-189 mg/dL High LDL greater than 189 mg/dL Very highPerformed By: #### CMP, MG, PHOS, CBC #### [facility] [address] [place] [id number] USATriglyceride w/Uanuoq320 mg/dLHigh0-149The [facility] Physician GroupComment on above:Order Comment: FASTING NResult Comment: TRIG ATP III CLASSIFICATION TRIG less than 150 mg/dL Normal TRIG 150-199 mg/dL Borderline high TRIG 200-500 mg/dL High TRIG greater than 500 mg/dL Very high Standard traceable to the Center for Disease Conrtrol and Prevention (CDC) test method.Performed By: #### CMP, MG, PHOS, CBC #### [facility] [address] [place] [id number] USAVLDL QUQNVDVOWSB68 mg/dLNormMemorial Regional Hospital South Physician GroupComment on above:Order Comment: FASTING NPerformed By: #### CMP, MG, PHOS, CBC #### [facility] [address] [place] [address] USANo Panel InformationOrdered By: Priscilla Lang on 34-67-4878Tlvtvrz Glucose CommentGlu2: cleaned meterLancaster Municipal HospitalOpiates [Presence] in Urine by Screen methodOrdered By: Priscilla Lang on 38-97-2057Nmygvtg Screen Ql (U)Opiates [Presence] in Urine by Screen method NegativeLancaster Municipal HospitalPhencyclidine Screen Ql (U)Ordered By: Priscilal Lang on 08-43-6753Lccankopyfhul Ql (U)Phencyclidine [Presence] in Urine by Screen methodNegativeMcKitrick Hospitalerum or plasma total cholesterol/high density lipoprotein (HDL) cholesterol mass ratOrdered By: Jori Hearn on 52-12-7598Mfbbpbngbqz.total/Cholesterol in HDL [Mass ratio] Serum or plasma total cholesterol/high density lipoprotein (HDL) cholesterol mass rat<5.0L[facility] HospitalTriglyceride [Mass/volume] in Serum or PlasmaOrdered By: Jori Hearn on 24-23-3364Rtluziwzjjrq [Mass/Vol] Triglyceride [Mass/volume] in Serum or PlasmaHigh0-149[facility] HospitalComment on above:TRIG ATP III CLASSIFICATIONTRIG less than 150 mg/dL NormalTRIG 150-199 mg/dL Borderline highTRIG 200-500 mg/dL High TRIG greater than 500 mg/dL Very highStandard traceable to the Center for Disease Conrtrol and Prevention (CDC) test method.Urine Cultureon 74-26-8051Bgiilzms identified Cx Nom (U)15,000 colonies/ml mixed bacterial skin contaminants 2 Days PERFORMED BY: [place] [address] PATHOLOGIST C[employer]AR[employer] VENDOR LE MACE M.D.NormalThe [facility] Physician GroupComment on above: Performed By: #### CMP, MG, PHOS, CBC #### [facility] [address] [place] [address] USAUrine cultureOrdered By: Priscilla Lang on 04-29-2024 Bacteria identified Cx Nom (U)Urine cultureLancaster Municipal Hospital Bacteria identified Cx Nom (U)Urine cultureLancaster Municipal Hospital Alanine aminotransferase [Enzymatic activity/volume] in Serum or PlasmaOrdered By: Wesley Villafuerte on 15-85-7365WWD [Catalytic activity/Vol]Alanine aminotransferase [Enzymatic activity/volume] in Serum or Plasma7-52[facility] HospitalAlbumin [Mass/volume] in Serum or Plasma by Bromocresol green (BCG) dye binding methoOrdered By: Wesley Villafuerte on 09-28-9342Xoysdvv BCG dye [Mass/Vol]Albumin [Mass/volume] in Serum or Plasma by Bromocresol green (BCG) dye binding metho3.5-5.7FAshtabula County Medical CenterAlkaline phosphatase [Enzymatic activity/volume] in Serum or PlasmaOrdered By: Wesley Villafuerte on 00-00-0877KVQ [Catalytic activity/Vol]Alkaline phosphatase [Enzymatic activity/volume] in Serum or Tpheft21-945EslhpotsvLancaster Municipal Hospital Anisocytosis LM Ql (Bld)Ordered By: Wesley Villafuerte on 48-77-7973Nlgxapotkbju Ql (Bld)Anisocytosis [Presence] in Blood by Light microscopyLancaster Municipal HospitalAppearance of UrineOrdered By: Wesley Villafuerte on 04-28-2024 Appearance (U)Urine appearanceCleHocking Valley Community HospitalAspartate aminotransferase [Enzymatic activity/volume] in Serum or PlasmaOrdered By: Wesley Villafuerte on 73-09-3260QLL [Catalytic activity/Vol]Aspartate aminotransferase [Enzymatic activity/volume] in Serum or Psclsx23-08SgwiqgmqcLancaster Municipal HospitalB-Type Natriuretic Peptideon 94-49-0863Psomnasfobg peptide B (Bld) [Mass/Vol]25.0 pg/mLNormal5-100The [facility] Physician GroupComment on above: Result Comment: PERFORMED BY: [place] [address] PATHOLOGIST [employer]AR[employer] VENDOR [employer] MACE M.D.Performed By: #### CMP, MG, PHOS, CBC #### [place] [address] USABacteria [Presence] in Urine by AutomatedOrdered By: Wesley Villafuerte on 09-58-4660Lymvbszp Auto Ql (U)Bacteria [Presence] in Urine by AutomatedNone SeenLancaster Municipal HospitalBasophils Auto (Bld) [#/Vol] Ordered By: Wesley Villafuerte on 36-34-0539Vagimpbga (Bld) [#/Vol]Automated basophil count0.0-0.2FAshtabula County Medical CenterBasophils/100 WBC Auto (Bld)Ordered By: Wesley Villafuerte on 90-39-9523Bhdclcogu/100 WBC (Bld)Automated basophil %. [facility] HospitalBilirubin Test strip Ql (U)Ordered By: Wesley Villafuerte on 48-62-5574Xqhfubtqo Ql (U)Bilirubin.total [Presence] in Urine by Test stripNegativeLancaster Municipal HospitalBilirubin.total [Mass/volume] in Serum or PlasmaOrdered By: Wesley Villafuerte on 05-31-4774Nsrttxgrh [Mass/Vol] Bilirubin.total [Mass/volume] in Serum or Plasma0.3-1.0[facility] HospitalBioFire Not Detectedon 90-65-6840EvyIisl Not DetectedNot detected NormalNot DetecteThe [facility] Physician GroupComment on above:Result Comment: This is a duplicate RP2.1 COVID (PCR) result to be used for statistical tracking purpose only. PERFORMED BY: [place] [address] PATHOLOGIST C[employer]ARET[employer] VENDOR [employer] MACE M.D.Performed By: #### CMP, MG, PHOS, CBC #### [place] [address] USACOVID-19 Detected/Not DetectedOrdered By: Wesley Villafuerte on 23-91-8150ITMP-CoV-2 (COVID-19) RNA TEJINDER+non-probe Ql (Nph)Not detectedNot DetectOur Lady of Mercy HospitalComment on above:This is a duplicate RP2.1 COVID (PCR) result to be used for statistical tracking purpose only.CT angio headon 15-86-4081SU angio headVAN WERT [facility] [place] [address] [place] [address] CT Scan Report Signed Patient: Taye Gay MR#: [id number] 19 : 1955 Acct:[id number] Age/Sex: 68 / F ADM Date: 04/28/24 Loc: ER Room: Type: [facility] ER Attending Dr: Copies to: Wesley Villafuerte PA-C Ordering Provider: Wesley Villafuerte PA-C Date of Service: 04/28/24 CT/CT angio head: weakness ([id number]) CT/CT angio neck: weakness ([id number]) CT/CT head/brain wo con: weakness CT head/brain [...] Oz Bowling M.D.04/28/2024 9:44 PM Dictation Location: [place] [address] Transcribed By: AMY 04/28/242143 Dictated By: Oz Bowling II, MD 04/28/242129 Signed By: 04/28/242143NoFrye Regional Medical Center Physician GroupCalcium [Mass/volume] in Serum or PlasmaOrdered By: Wesley Villafuerte on 49-12-1775Wmkgfxu [Mass/Vol]Calcium [Mass/volume] in Serum or Plasma8.6-10.3FAshtabula County Medical CenterCarbon dioxide, total [Moles/volume] in Serum or PlasmaOrdered By: Wesley Villafuerte on 30-47-2399JB3 [Moles/Vol]Carbon dioxide, total [Moles/volume] in Serum or Plasma 21.0-31.0[facility] HospitalChloride [Moles/volume] in Serum or PlasmaOrdered By: Wesley Villafuerte on 51-77-1728Slnsyvdr [Moles/Vol]Chloride [Moles/volume] in Serum or Esygku60-822IgrvxfowxLancaster Municipal HospitalColor Auto (U)Ordered By: Wesley Villafuerte on 84-44-2023Xjyzk (U)Color of Urine by Auto YellowLancaster Municipal HospitalComprehensive Metabolic Panelon 03-64-4882Dvxxnwn [Mass/Vol]3.7 g/dLNormal3.5-5.7The [facility]ician [facility] Comment on above:Performed By: #### CMP, MG, PHOS, CBC #### [facility] [address] [place] [address] USAAlbumin/Globulin [Mass ratio]1.2 {ratio}NormalThe [facility] Physician GroupComment on above:Performed By: #### CMP, MG, PHOS, CBC #### [place] [address] USAALP [Catalytic activity/Vol]86 U/GYhyren13-316Mjs [facility] Physician GroupComment on above:Performed By: #### CMP, MG, PHOS, CBC #### [place] [address] USAALT [Catalytic activity/Vol]20 U/LNormal7-52The [facility] Physician GroupComment on above:Performed By: #### CMP, MG, PHOS, CBC #### [place] [address] USAAnion gap [Moles/Vol]12.7 mmol/LNormal6.0-15.0The [facility] Physician GroupComment on above:Performed By: #### CMP, MG, PHOS, CBC #### [place] [address] USAAST [Catalytic activity/Vol]25 U/OUtervp04-66Tyy [facility] Physician GroupComment on above:Performed By: #### CMP, MG, PHOS, CBC #### [place] [address] USABilirubin [Mass/Vol]0.3 mg/dLNormal0.3-1.0The [facility] Physician GroupComment on above:Performed By: #### CMP, MG, PHOS, CBC #### [place] [address] USACalcium [Mass/Vol]9.7 mg/dLNormal8.6-10.3The [facility] Physician GroupComment on above:Performed By: #### CMP, MG, PHOS, CBC #### [place] [address] USAChloride [Moles/Vol]104 mmol/LUnqdsb81-587Wdy [facility] Physician GroupComment on above:Performed By: #### CMP, MG, PHOS, CBC #### [facility] [address] [place] [address] USACO2 [Moles/Vol]24.2 mmol/TFakpjb45.0-31.0The [facility] Physician GroupComment on above:Performed By: #### CMP, MG, PHOS, CBC #### [facility] [address] [place] [address] USACreatinine [Mass/Vol]0.85 mg/dLNormal0.60-1.20The [facility] Physician GroupComment on above:Performed By: #### CMP, MG, PHOS, CBC #### [facility] [address] [place] [address] USACreatinine Clr Calc Xpfrfrfi61.21NormSheltering Arms Hospitale [facility] Physician GroupComment on above:Performed By: #### CMP, MG, PHOS, CBC #### [place] [address] USAGFR/1.73 sq M.predicted MDRD (S/P/Bld) [Vol rate/Area] mL/min/{1.73_m2}NormalThe [facility] Physician GroupComment on above:Performed By: #### CMP, MG, PHOS, CBC #### [place] [address] USAGlobulin (S) [Mass/Vol]3.1 g/dLNormSheltering Arms Hospitale [facility] Physician GroupComment on above:Performed By: #### CMP, MG, PHOS, CBC #### [place] [address] USAGlucose [Mass/Vol]231 mg/lTIogz58-290Jir [facility] Physician GroupComment on above:Result Comment: Random Glucose Reference Range is dependent on time and content of last meal. Glucose of more than 200 mg/dL in a nonstressed, ambulatory subject supports the diagnosis of Diabetes Mellitus. ADA recommended reference rangePerformed By: #### CMP, MG, PHOS, CBC #### [facility] [address] [place] [address] USAPotassium [Moles/Vol]3.9 mmol/LNormal3.5-5.1The [facility] Physician GroupComment on above:Result Comment: Hemolysis is present at a level that could interfere with the result. Contact lab if redraw is requiredPerformed By: #### CMP, MG, PHOS, CBC #### [facility] [address] [place] [id number] USAProtein [Mass/Vol]6.8 g/dLNormal6.4-8.9The [facility] Physician GroupComment on above:Performed By: #### CMP, MG, PHOS, CBC #### [facility] [address] [address] USASodium [Moles/Vol]137 mmol/TScyznw016-470Dew [facility] Physician GroupComment on above:Performed By: #### CMP, MG, PHOS, CBC #### [facility] [address] [place] [address] USAUrea nitrogen [Mass/Vol]11 mg/dLNormal7-25The [facility] Physician GroupComment on above:Performed By: #### CMP, MG, PHOS, CBC #### [facility] [address] [address] USACreatinine [Mass/volume] in Serum or PlasmaOrdered By: Wesley Villafuerte on 31-76-5789Kkcvrstazk [Mass/Vol]Creatinine [Mass/volume] in Serum or Plasma0.60-1.20[facility] HospitalDipstick and Microscopicon 22-77-7998Wzttbcqzkd (U)ClearNormalClearThe [facility] Physician GroupComment on above:Order Comment: Name Collection Type:: Clean-Voided MidstreamPerformed By: #### ADDONUAPLUS #### [facility] [address] [address] USABacteria,UrineRareNormalNone SeenThe [facility] Physician GroupComment on above:Order Comment: Name Collection Type:: Clean-Voided MidstreamPerformed By: #### ADDONUAPLUS #### [facility] [address] [address] USABilirubin,UrineNegativeNormalNegativeThe [facility] Physician GroupComment on above:Order Comment: Name Collection Type:: Clean- Voided MidstreamPerformed By: #### ADDONUAPLUS #### [place] [address] USABudding Yeast,UrineRareHighNone SeenThe [facility] Physician GroupComment on above:Order Comment: Name Collection Type:: Clean- Voided MidstreamResult Comment: PERFORMED BY: [place] [address] PATHOLOGIST CIGARETTE VENDOR LE MACE M.D.Performed By: #### ADDONUAPLUS #### [place] [address] USAColor (U)Light-YellowNormalYellowThe [facility] Physician GroupComment on above:Order Comment: Name Collection Type:: Clean-Voided MidstreamPerformed By: #### ADDONUAPLUS #### [place] [address] USAGlucose Ql (U)>=HighNormalThBenewah Community Hospital Physician Group Comment on above:Order Comment: Name Collection Type:: Clean-Voided Midstream Performed By: #### ADDONUAPLUS #### [place] [address] USAHyaline Casts,Urine0 [LPF]Normal0-8The [facility] Physician GroupComment on above:Order Comment: Name Collection Type:: Clean-Voided MidstreamPerformed By: #### ADDONUAPLUS #### [place] [address] USAKetones Ql (U)NegativeNormalNegativeRiver Point Behavioral Health Physician GroupComment on above:Order Comment: Name Collection Type:: Clean- Voided MidstreamPerformed By: #### ADDONUAPLUS #### [place] [address] USALeukocyte esterase Test strip Ql (U)NegativeNormalNegative [facility] Physician GroupComment on above:Order Comment: Name Collection Type:: Clean-Voided MidstreamPerformed By: #### ADDONUAPLUS #### [place] [address] USANitrite,UrineNegativeNormalNegativeThe [facility] Physician GroupComment on above:Order Comment: Name Collection Type:: Clean-Voided MidstreamPerformed By: #### ADDONUAPLUS #### [place] [address] USAOccult Blood,Urine2+HighNegativeThe [facility] Physician GroupComment on above:Order Comment: Name Collection Type:: Clean-Voided MidstreamResult Comment: PERFORMED BY: [place] [address] PATHOLOGIST CIGARETTE VENDOR LE MACE M.D.Performed By: #### ADDONUAPLUS #### [place] [address] USApH (U)5.5 [pH]Normal5.0-9.0The [facility] Comment on above:Order Comment: Name Collection Type:: Clean-Voided Midstream Performed By: #### ADDONUAPLUS #### [place] [address] USAProtein,UrineNegativeNormalNegativeThe [facility] Physician GroupComment on above:Order Comment: Name Collection Type:: Clean-Voided MidstreamPerformed By: #### ADDONUAPLUS #### [place] [address] USARBC,Urine10 [HPF]High0-4The [facility] Comment on above:Order Comment: Name Collection Type:: Clean-Voided Midstream Performed By: #### ADDONUAPLUS #### [place] [address] USASpecificy [place],Urine1.541Npjh6.001-1.030The [facility] Physician GroupComment on above:Order Comment: Name Collection Type:: Clean- Voided MidstreamPerformed By: #### ADDONUAPLUS #### [place] [address] USASquamous Epithelial Cell,Urine3 [HPF]High0-2The [facility] Physician GroupComment on above:Order Comment: Name Collection Type:: Clean- Voided MidstreamPerformed By: #### ADDONUAPLUS #### [facility] [address] [id number] USAUrobilinogen,UrineNormalNormalNormMemorial Regional Hospital South Physician GroupComment on above:Order Comment: Name Collection Type:: Clean- Voided MidstreamPerformed By: #### ADDONUAPLUS #### [facility] [address] [place] [address] USAWBC,Urine5 [HPF]High0-4The [facility] Group Comment on above:Order Comment: Name Collection Type:: Clean-Voided Midstream Performed By: #### ADDONUAPLUS #### [facility] [address] [place] [address] USAECG 12 lead ECGon 04-66-4047QGW 12 lead ECGVAN [facility] [place] [address] [place] [address] Electrocardiograph Report Signed Patient: Taye Gay MR#: [id number] 19 : 1955 Acct:[id number] Age/Sex: 68 / F ADM Date: 04/28/24 Loc: Room: [address] [place] [address] Type: ADM IN Attending Dr: Jori Hearn [...] MUS Signed By Jori Batista MD 05/23 0144[facility] Physician GroupEosinophils Auto (Bld) [#/Vol] Ordered By: Wesley Villafuerte on 80-60-4499Affsoqmqrut (Bld) [#/Vol]Automated eosinophil count0.0-0.45[facility] HospitalEosinophils/100 WBC Auto (Bld)Ordered By: Wesley Villafuerte on 98-51-8209Ukfctblztzq/100 WBC (Bld) Automated eosinophil %.[facility] HospitalEpithelial cells.squamous [#/area] in Urine sediment by Automated countOrdered By: Wesley Villafuerte on 88-55-4803Fagqrvdjfx cells.squamous Auto (Urine sed) [#/Area]Epithelial cells.squamous [#/area] in Urine sediment by Automated countHigh0-2FAshtabula County Medical CenterErythrocyte distribution width Auto (RBC) [Ratio]Ordered By: Wesley Villafuerte on 31-18-2418Vrmgeihescp distribution width (RBC) [Ratio] Erythrocyte distribution width [Ratio] by Automated aooqlGskv24.9-15.3FAshtabula County Medical CenterErythrocyte morphology finding [Identifier] in Blood Ordered By: Wesley Villafuerte on 70-80-6991MNG morphology finding Nom (Bld)RBC morphologyLancaster Municipal HospitalErythrocytes [#/area] in Urine sediment by Automated countOrdered By: Wesley Villafuerte on 75-99-1639SQR Auto (Urine sed) [#/Area]Erythrocytes [#/area] in Urine sediment by Automated countHigh0-4 [facility] HospitalGlobulin Calc (S) [Mass/Vol]Ordered By: Wesley Villafuerte on 41-00-2205Hhqegtiq (S) [Mass/Vol]Serum globulin measurement by calculation (mass/volume)[facility] HospitalGlucose [Mass/volume] in Serum or PlasmaOrdered By: Wesley Villafuerte on 39-05-8782Peuzyhy [Mass/Vol] Glucose [Mass/volume] in Serum or HqbtziOdno17-805CrezfbjhjLancaster Municipal HospitalComment on above:ADA recommended reference rangeRandom Glucose Reference Range is dependent on time and content of last meal. Glucose of more than 200 mg/dL in a nonstressed, ambulatory subject supports the diagnosisof Diabetes Mellitus.Glucose [Mass/volume] in Urine by Test stripOrdered By: Wesley Villafuerte on 88-47-7455Qwecudc Test strip (U) [Mass/Vol]Glucose [Mass/volume] in Urine by Test stripHighNormalLancaster Municipal HospitalHbA1c HPLC (Bld) [Mass fraction]on 27-98-1365RfZ7a (Bld) [Mass fraction]Hemoglobin A1c/Hemoglobin.total in Blood by HPLCLancaster Municipal HospitalHematocrit Auto (Bld) [Volume fraction]Ordered By: Wesley Villafuerte on 23-51-6756Fklndjjeqn (Bld) [Volume fraction]Hematocrit [Volume Fraction] of Blood by Automated ywfnrQuft59.0-46.4 [facility] HospitalHemoglobin Test strip Ql (U)Ordered By: Wesley Villafuerte on 33-57-0260Yhznocrzxe Ql (U)Hemoglobin [Presence] in Urine by Test strip HighNegativeLancaster Municipal HospitalHemoglobin [Mass/volume] in Blood Ordered By: Wesley Villafuerte on 39-96-1180Vvnbusnrsk (Bld) [Mass/Vol]Hemoglobin [Mass/volume] in CfxrxStbf16.8-15.4FAshtabula County Medical CenterHyaline casts [#/area] in Urine sediment by Automated countOrdered By: Wesley Villafuerte on 81-54-4649Alagpyg casts Auto (Urine sed) [#/Area]Hyaline casts [#/area] in Urine sediment by Automated count0-8L[facility] HospitalINR in Platelet poor plasma by Coagulation assayOrdered By: Wesley Villafuerte on 81-34-3343GYD Coag (PPP) [Relative time]INR in Platelet poor plasma by Coagulation assayLancaster Municipal HospitalComment on above:INR Therapeutic Range A) Pre- [...] strip Ql (U)Ordered By: Wesley Villafuerte on 85-54-8948Tvbwcqu Ql (U)Ketones [Presence] in Urine by Test stripNegativeLancaster Municipal HospitalLeukocyte esterase [Presence] in Urine by Test stripOrdered By: Wesley Villafuerte on 64-39-2279Tovesgqxt esterase Test strip Ql (U)Leukocyte esterase [Presence] in Urine by Test stripNegative [facility] HospitalLeukocytes [#/area] in Urine sediment by Automated countOrdered By: Wesley Villafuerte on 90-13-8601FXW Auto (Urine sed) [#/Area]Leukocytes [#/area] in Urine sediment by Automated countHigh0-4FAshtabula County Medical CenterLeukocytes [#/volume] corrected for nucleated erythrocytes in Blood by Automated counOrdered By: Wesley Villafuerte on 32-12-4757FXJ corrected for nucl RBC Auto (Bld) [#/Vol]Leukocytes [#/volume] corrected for nucleated erythrocytes in Blood by Automated coun3.8-11.6FAshtabula County Medical CenterLymphocytes Auto (Bld) [#/Vol]Ordered By: Wesley Villafuerte on 74-60-6758Grwayibkkxv (Bld) [#/Vol]Lymphocytes [#/volume] in Blood by Automated count1.00-4.8[facility] HospitalLymphocytes/100 WBC Auto (Bld) Ordered By: Wesley Villafuerte on 62-36-6077Eoazamjzmud/100 WBC (Bld)Lymphocytes/100 leukocytes in Blood by Automated count.[facility] HospitalH Auto (RBC) [Entitic mass]Ordered By: Wesley Villafuerte on 29-98-6338GVC (RBC) [Entitic mass]MCH [Entitic mass] by Automated count24.7-34.3FParkwood HospitalHC Auto (RBC) [Mass/Vol]Ordered By: Wesley Villafuerte on 72-62-5566LUOV (RBC) [Mass/Vol]MCHC [Mass/volume] by Automated count32.0-35.0[facility] HospitalMCV Auto (RBC) [Entitic vol]Ordered By: Wesley Villafuerte on 04-28-2024 MCV (RBC) [Entitic vol]MCV [Entitic volume] by Automated smedb71-667IbvlkgiknLancaster Municipal HospitalMagnesiumon 93-07-5813Gvgbklyrj [Mass/Vol]1.7 mg/dLLow 1.9-2.7The [facility] Physician GroupComment on above:Result Comment: PERFORMED BY: [facility] [address] [place] [address] PATHOLOGIST CIGARETTE VENDOR LE MACE M.D.Performed By: #### CMP, MG, PHOS, CBC #### [facility] [address] [place] [address] USAMagnesium [Mass/volume] in Serum or PlasmaOrdered By: Welsey Villafuerte on 39-65-5047Mcwmabxci [Mass/Vol]Magnesium [Mass/volume] in Serum or PlasmaLow1.9-2.7FAshtabula County Medical CenterMonocyte distribution width [Entitic volume] in Blood by AutomatedOrdered By: Wesley Villafuerte on 04-28-2024 Monocyte distribution width Auto (Bld) [Entitic vol]Monocyte distribution width [Entitic volume] in Blood by AutomatedHigh0.00-20.00[facility] HospitalComment on above:For adults in ED, MDW > 20.0 may be associated with a higher risk of sepsis during the first 12 hrs of hospital admissionMonocytes Auto (Bld) [#/Vol]Ordered By: Wesley Villafuerte on 66-03-5640Zzhnqhuxn (Bld) [#/Vol] Automated blood monocyte count0.0-0.8[facility] Monocytes/100 WBC Auto (Bld)Ordered By: Wesley Villafuerte on 23-23-8759Acohlijva/100 WBC (Bld)Automated monocyte %.[facility] HospitalNatriuretic peptide B [Mass/Vol]Ordered By: Wesley Villafuerte on 26-31-1993Tkoyuegstiu peptide B (Bld) [Mass/Vol]BNP ser/plas5-100L[facility] HospitalNeutrophils Auto (Bld) [#/Vol]Ordered By: Wesley Villafuerte on 50-32-8425Zadjtyzapmg (Bld) [#/Vol]Neutrophils [#/volume] in Blood by Automated count1.8-7.7FAshtabula County Medical CenterNeutrophils/100 WBC Auto (Bld)Ordered By: Wesley Villafuerte on 01-18-6327Fgyyklnvcuo/100 WBC (Bld)Automated neutrophil %.[facility] HospitalNitrite Test strip Ql (U)Ordered By: Wesley Villafuerte on 04-28-2024 Nitrite Ql (U)Nitrite [Presence] in Urine by Test stripNegativeLancaster Municipal HospitalNo Panel InformationOrdered By: Wesley Villafuerte on 90-83-4628Yxpfofltw GFR (CKD-EPI)> 60.0 mL/MinLancaster Municipal Hospital Pharmacy Creatinine Clearance (Chem77.21[facility] HospitalNo Panel Informationon 68-34-0950Epglphb Hmeuxoq267JuqbcowaoLancaster Municipal HospitalNucleated erythrocytes [Presence] in Blood by Automated countOrdered By: Wesley Villafuerte on 85-16-6459Thsnmstpf RBC Auto Ql (Bld)Nucleated erythrocytes [Presence] in Blood by Automated count0-0.5FAshtabula County Medical Center Partial Thromboplastin Timeon 80-44-2027oBDQ Coag (Bld) [Time]30.0 sNormal 25.1-36.5The [facility] Physician GroupComment on above:Result Comment: A hematocrit value greater than 55% may lead to inaccurate results in coagulation testing. Patients having hematocrit values >55% require a special collection tube for coagulation studies. Please contact the laboratory at [phone] for redraw instructions. PERFORMED BY: [facility] [address] [place] [address] PATHOLOGIST CIGARETTE VENDOR LE AMCE M.D.Performed By: #### CMP, MG, PHOS, CBC #### [facility] [address] [place] [address] USAPlatelet adequacy [Presence] in Blood by Light microscopy Ordered By: Wesley Villafuerte on 26-20-8051Wpzkawqsu LM Ql (Bld)Platelet adequacy [Presence] in Blood by Light microscopyNoMercy Health Urbana Hospital Platelet mean volume Auto (Bld) [Entitic vol]Ordered By: Wesley Villafuerte on 85-82-2152Ufpifsxf mean volume (Bld) [Entitic vol]Platelet mean volume [Entitic volume] in Blood by Automated count6.3-10.7FAshtabula County Medical Center Platelet morphology finding [Identifier] in BloodOrdered By: Wesley Villafuerte on 21-83-6423Mmfwlhwv morphology finding Nom (Bld)Platelet morphology finding [Identifier] in BloodNoMercy Health Urbana HospitalPlatelets Auto (Bld) [#/Vol]Ordered By: Wesley Villafuerte on 64-78-5528Hugfbspfl (Bld) [#/Vol]Platelets [#/volume] in Blood by Automated cvyzqLnk144-969WqjsuravuLancaster Municipal HospitalPolychromasia [Presence] in Blood by Light microscopyOrdered By: Wesley Villafuerte on 22-75-6274Mfntijhvqklkp LM Ql (Bld)Polychromasia [Presence] in Blood by Light microscopyLancaster Municipal HospitalPotassium [Moles/volume] in Serum or PlasmaOrdered By: Wesley Villafuerte on 79-32-3908Wmtfvfzsg [Moles/Vol] Potassium [Moles/volume] in Serum or Plasma3.5-5.1FAshtabula County Medical CenterComment on above:Hemolysis is present at a level that could interfere with the result.Contact lab if redraw is requiredProtein Test strip (U) [Mass/Vol] Ordered By: Wesley Villafuerte on 93-15-0529Lycdrfk (U) [Mass/Vol]Protein [Mass/volume] in Urine by Test stripNegativeLancaster Municipal Hospital Protein [Mass/volume] in Serum or PlasmaOrdered By: Wesley Villafuerte on 04-28-2024 Protein [Mass/Vol]Protein [Mass/volume] in Serum or Plasma6.4-8.9[facility] HospitalProthrombin Time INRon 53-38-6664QMJ Coag (PPP) [Relative time]1.3 {INR}NormalThe [facility] Physician GroupComment on above:Result Comment: INR Therapeutic [...] #### CMP, MG, PHOS, CBC #### [facility] [address] [place] [address] USAPT Coag (PPP) [Time]15.1 sHigh9.0-12.9The [facility] Physician GroupComment on above:Result Comment: A hematocrit value greater than 55% may lead to inaccurate results in coagulation testing. Patients having hematocrit values >55% require a special collection tube for coagulation studies. Please contact the laboratory at [phone] for redraw instructions.Performed By: #### CMP, MG, PHOS, CBC #### [facility] [address] [place] [address] USAProthrombin time (PT)Ordered By: Wesley Villafuerte on 33-34-9681AN Coag (PPP) [Time]Prothrombin time (PT)High9.0-12.9[facility] HospitalComment on above:A hematocrit value greater than 55% may lead to inaccurate results in coagulation testing. Patientshaving hematocrit values >55% require a special collection tube for coagulation studies. Please c ontact the laboratory at [phone] for redraw instructions.RBC Auto (Bld) [#/Vol]Ordered By: Wesley Villafuerte on 44-99-2806ZCF (Bld) [#/Vol]Erythrocytes [#/volume] in Blood by Automated countHigh3.60-5.00[facility] HospitalRespiratory (Upper) Panel, PCRon 76-59-4013Mfdffslvlua (Upper) Panel, PCR Adenovirus Not detected Bordetella [...] Influenza A H3 Blank Space PERFORMED BY: [place] [address] PATHOLOGIST CIGARETTE VENDOR LE MACE M.D.NormalThe [facility] Physician GroupComment on above: Performed By: #### CMP, MG, PHOS, CBC #### [place] [address] USARespiratory pathogens DNA and RNA panel - Nasopharynx by TEJINDER with non-probe detectionOrdered By: Wesley Villafuerte on 86-05-0365Kylyqlrpkei pathogens DNA and RNA panel TEJINDER+non-probe (Nph)Respiratory pathogens DNA and RNA panel - Nasopharynx by TEJINDER with non-probe detectionLancaster Municipal HospitalRespiratory pathogens DNA and RNA panel TEJINDER+non-probe (Nph)Respiratory pathogens DNA and RNA panel - Nasopharynx by TEJINDER with non-probe detection McKitrick Hospitalcan and CBCon 93-31-1240Rogudrzzznhj Ql (Bld) SlightNormalThe [facility] Physician GroupComment on above:Performed By: #### CMP, MG, PHOS, CBC #### [facility] [address] [place] [address] USABasophils (Bld) [#/Vol]0.1 10*3/uLNormal0.0-0.2The [facility] Physician GroupComment on above:Performed By: #### CMP, MG, PHOS, CBC #### [place] [address] USABasophils/100 WBC (Bld)1.1 %Normal.The [facility] Physician GroupComment on above:Performed By: #### CMP, MG, PHOS, CBC #### [facility] [address] [place] [address] USAEosinophils (Bld) [#/Vol]0.3 10*3/uLNormal0.0-0.45The [facility] Physician GroupComment on above:Performed By: #### CMP, MG, PHOS, CBC #### [place] [address] USAEosinophils/100 WBC (Bld)2.7 %Normal.The [facility] Physician GroupComment on above:Performed By: #### CMP, MG, PHOS, CBC #### [place] [address] USAErythrocyte distribution width (RBC) [Ratio]15.4 %High 11.9-15.3The [facility] Physician GroupComment on above:Performed By: #### CMP, MG, PHOS, CBC #### [place] [address] USAHematocrit (Bld) [Volume fraction]48.1 %High34.0-46.4The [facility] Physician GroupComment on above:Performed By: #### CMP, MG, PHOS, CBC #### [place] [address] USAHemoglobin (Bld) [Mass/Vol]16.0 g/cFBdrr07.8-15.4The [facility] Physician GroupComment on above:Performed By: #### CMP, MG, PHOS, CBC #### [place] [address] USALymphocytes (Bld) [#/Vol]2.5 10*3/uLNormal1.00-4.8The [facility] Physician GroupComment on above:Performed By: #### CMP, MG, PHOS, CBC #### [place] [address] USALymphocytes/100 WBC (Bld)24.6 %Normal.The [facility] Physician GroupComment on above:Performed By: #### CMP, MG, PHOS, CBC #### [place] [address] USAMCH (RBC) [Entitic mass]31.7 jyQpigfa82.7-34.3The [facility] Physician GroupComment on above:Performed By: #### CMP, MG, PHOS, CBC #### [place] [address] USAMCV (RBC) [Entitic vol]95.1 cKVfgrrs24-397Sny [facility] Physician GroupComment on above:Performed By: #### CMP, MG, PHOS, CBC #### [facility] [address] [place] [address] USAMean Corpuscular HGB Conc33.3 g/zTKfxyvi03.0-35.0The [facility] Physician GroupComment on above:Performed By: #### CMP, MG, PHOS, CBC #### [facility] [address] [place] [address] USAMonocytes (Bld) [#/Vol]0.8 10*3/uLNormal0.0-0.8The [facility] Physician GroupComment on above:Performed By: #### CMP, MG, PHOS, CBC #### [place] [address] USAMonocytes/100 WBC (Bld)20.25 %High0.00-20.00The [facility] Physician GroupComment on above:Result Comment: For adults in ED, MDW > 20.0 may be associated with a higher risk of sepsis during the first 12 hrs of hospital admissionPerformed By: #### CMP, MG, PHOS, CBC #### [facility] [address] [place] [address] USAMonocytes/100 WBC (Bld)7.6 %Normal.The [facility] Physician GroupComment on above:Performed By: #### CMP, MG, PHOS, CBC #### [facility] [address] [place] [address] USANeutrophils (Bld) [#/Vol]6.5 10*3/uLNormal1.8-7.7The [facility] Physician GroupComment on above:Performed By: #### CMP, MG, PHOS, CBC #### [facility] [address] [place] [address] USANeutrophils/100 WBC (Bld)64.0 %Normal.The [facility] Physician GroupComment on above:Performed By: #### CMP, MG, PHOS, CBC #### [facility] [address] [place] [address] USANRBC%0.2 /100{WBC}Normal0-0.5The [facility] Comment on above:Performed By: #### CMP, MG, PHOS, CBC #### [place] [address] USAPlatelet EstimateDecreasedNormalHCA Florida [facility]FK [facility] Hospital Physician [facility] Medical CenterComment on above:Performed By: #### CMP, MG, PHOS, CBC #### [place] [address] USAPlatelet mean volume (Bld) [Entitic vol]9.9 fLNormal 6.3-10.7The [facility] Physician GroupComment on above:Performed By: #### CMP, MG, PHOS, CBC #### [place] [address] USAPlatelet MorphologyNormalNormalHCA Florida [facility] Physician GroupComment on above:Result Comment: PERFORMED BY: [place] [address] PATHOLOGIST CIGARETTE VENDOR LE MACE M.D.Performed By: #### CMP, MG, PHOS, CBC #### [place] [address] USAPlatelets (Bld) [#/Vol]136 10*3/vNEoi910-021Nbw [facility] Physician GroupComment on above:Performed By: #### CMP, MG, PHOS, CBC #### [place] [address] USAPolychromasiaSlightHCA Florida JFK North Hospital Physician [facility] Comment on above:Performed By: #### CMP, MG, PHOS, CBC #### [place] [address] USARBC (Bld) [#/Vol]5.06 10*6/uLHigh3.60-5.00The [facility] Physician GroupComment on above:Performed By: #### CMP, MG, PHOS, CBC #### [place] [address] USAWBC (Bld) [#/Vol]10.2 10*3/uLNormal3.8-11.6The [facility] Physician GroupComment on above:Performed By: #### CMP, MG, PHOS, CBC #### [facility] [address] [place] [address] USAWBC (Bld) [#/Vol]10.9 10*3/uLNormal3.8-11.6The [facility] Physician GroupComment on above:Performed By: #### CMP, MG, PHOS, CBC #### [facility] [address] [place] [address] USASerum or plasma albumin/globulin mass ratioOrdered By: Wesley Villafuerte on 92-63-9967Akaxlet/Globulin [Mass ratio]Serum or plasma albumin/globulin mass ratioMcKitrick Hospitalerum or plasma anion gap determinationOrdered By: Wesley Villafuerte on 43-96-0808Znlor gap [Moles/Vol]Serum or plasma anion gap determination6.0-15.0McKitrick Hospitalodium [Moles/volume] in Serum or PlasmaOrdered By: Wesley Villafuerte on 39-85-5384Jnszrs [Moles/Vol]Sodium [Moles/volume] in Serum or Obwyde839-690 McKitrick Hospitalpecific gravity Test strip (U) [Rel density] Ordered By: Wesley Villafuerte on 09-83-9504Uuynitdr gravity (U) [Rel density]Specific gravity of Urine by Test stripHigh1.001-1.030[facility] Troponin I High Sensitivityon 99-28-4559Spumezwm I High Sensitivity5.1 pg/mL Normal0.0-15.0[facility] Physician GroupComment on above:Result Comment: PERFORMED BY: [address] [address] PATHOLOGIST CIGARETTE VENDOR LE MACE M.D.Performed By: #### CMP, MG, PHOS, CBC #### [facility] [address] [place] [address] USATroponin I.cardiac [Mass/volume] in Serum or Plasma by Detection limit <= 0.01 ng/Ordered By: Wesley Villafuerte on 12-89-4234Whnoduhk I.cardiac DL <= 0.01 ng/mL [Mass/Vol]Troponin I.cardiac [Mass/volume] in Serum or Plasma by Detection limit <= 0.01 ng/0.0-15.0[facility] HospitalUrea nitrogen [Mass/volume] in Serum or PlasmaOrdered By: Wesley Villafuerte on 97-09-4575Lvgj nitrogen [Mass/Vol]Urea nitrogen [Mass/volume] in Serum or Plasma 7-25[facility] HospitalUrobilinogen Test strip (U) [Mass/Vol] Ordered By: Wesley Villafuerte on 02-03-4041Iistztczwutp (U) [Mass/Vol]Urobilinogen [Mass/volume] in Urine by Test stripNormalLancaster Municipal HospitalWBC Auto (Bld) [#/Vol]Ordered By: Wesley Villafuerte on 22-07-0538NJW (Bld) [#/Vol] Leukocytes [#/volume] in Blood by Automated count3.8-11.6FAshtabula County Medical CenterX-ray reportOrdered By: Oz Bowling on 97-58-5116Bsumz report [facility] [place] [address] XRay Report Signed Patient: Taye Gay MR#: [id number] : 1955 Acct:[id number] Age/Sex: 68 / F ADM Date: 4 Loc: ER Room: Type: [facility] ER Attending Dr: Copies to: [...] Bowling II, MD 04/28/242143 Signed By: 04/28/242145 [facility] Work Phone: XR chest 2V*on 53-85-3097IC chest 2V*[facility] [place] [address] [place] [address] XRay Report Signed Patient: Taye Gay MR#: [id number] 19 : 1955 Acct:[id number] Age/Sex: 68 / F ADM Date: 04/28/24 Loc: ER Room: Type: [facility] ER Attending Dr: Copies to: [...] Bowling II, MD 04/28/242143 Signed By: 04/28/24 2146[facility] Physician GroupYeast.budding [Presence] in Urine by Computer assisted methodOrdered By: Wesley Villafuerte on 04-28-2024 Yeast.budding Computer assisted Ql (U)Yeast.budding [Presence] in Urine by Computer assisted methodWilson HealthaPTT in Platelet poor plasma by Coagulation assayOrdered By: Wesley Villafuerte on 04-28-2024 aPTT Coag (PPP) [Time]Activated partial thromboplastin time (aPTT) in platelet poor plasma by coagulation a25.1-36.5FAshtabula County Medical CenterComment on above:A hematocrit value greater than 55% may lead to inaccurate results in coagulation testing. Patientshaving hematocrit values >55% require a special collection tube for coagulation studies. Please contact the laboratory at [phone] for redraw instructions.pH Test strip (U)Ordered By: Wesley Villafuerte on 60-21-0677vF (U)pH of Urine by Test strip5.0-9.0[facility] HospitalECG 12 lead ECGon 72-27-0467TRA 12 lead [facility] [place] [address] Electrocardiograph Report Signed Patient: Taey Gay MR#: [id number] : 1955 Acct:[id number] Age/Sex: 68 / F ADM Date: 04/27/24 Loc: ER Room: Type: [facility] ER Attending Dr: Ordering Provider: [...] Signed By Rl Villavicencio DO 0219[facility] Physician GroupAlanine aminotransferase [Enzymatic activity/volume] in Serum or PlasmaOrdered By: Nataliya Jane on 55-06-6215LSF [Catalytic activity/Vol]Alanine aminotransferase [Enzymatic activity/volume] in Serum or Plasma7-52[facility] HospitalAlbumin [Mass/volume] in Serum or Plasma by Bromocresol green (BCG) dye binding methoOrdered By: Nataliya Jane on 18-70-4798Abtpgnj BCG dye [Mass/Vol]Albumin [Mass/volume] in Serum or Plasma by Bromocresol green (BCG) dye binding metho3.5-5.7FAshtabula County Medical CenterAlkaline phosphatase [Enzymatic activity/volume] in Serum or PlasmaOrdered By: Nataliya Jane on 65-97-0234PKM [Catalytic activity/Vol] Alkaline phosphatase [Enzymatic activity/volume] in Serum or Cthgsg16-441 [facility] HospitalAspartate aminotransferase [Enzymatic activity/volume] in Serum or PlasmaOrdered By: Nataliya Jane on 46-92-9367APA [Catalytic activity/Vol]Aspartate aminotransferase [Enzymatic activity/volume] in Serum or Wkzmql35-96AoyparkriLancaster Municipal HospitalBilirubin.total [Mass/volume] in Serum or PlasmaOrdered By: Nataliya Jane on 12-55-2213Nxmzsmyij [Mass/Vol]Bilirubin.total [Mass/volume] in Serum or Plasma0.3-1.0[facility] HospitalCBC W Auto Differential panel (Bld)on 14-19-0828Uawjajzcn (Bld) [#/Vol]0.1 10*3/uL0.0 - 0.2 10*3/uLNOMS HealthcareBasophils/100 WBC Manual cnt (Syn fld)0.6 %.NOMS HealthcareEosinophils (Bld) [#/Vol]0.3 10*3/uL0.0 - 0.45 10*3/uLNOMS HealthcareEosinophils/100 WBC Manual cnt (Syn fld)2.6 %.NOMS HealthcareErythrocyte distribution width (RBC) [Ratio]15 %11.9 - 15.3 %NOMS HealthcareHematocrit (Bld) [Volume fraction]49.7 %High34.0 - 46.4 %[facility] Medical CenterHemoglobin (Bld) [Mass/Vol]16.6 g/jQUkti33.8 - 15.4 g/dLSaint John's Breech Regional Medical CenterInterpretation and review of laboratory resultsAbnormSelect Specialty Hospital - Camp Hill Lymphocytes (Bld) [#/Vol]2.1 10*3/uL1.00 - 4.8 10*3/uLNONJ Healthcare Lymphocytes/100 WBC Manual cnt (Syn fld)19.3 %.[facility]ics & Sports MedicineH (RBC) [Entitic mass]31.2 pg24.7 - 34.3 pgFreeman Orthopaedics & Sports MedicineHC (RBC) [Mass/Vol]33.4 g/dL32.0 - 35.0 g/dLFreeman Orthopaedics & Sports MedicineV (RBC) [Entitic vol]93.4 fL80 - 100 fLSaint John's Breech Regional Medical Center Monocytes (Bld) [#/Vol]0.9 10*3/uLHigh0.0 - 0.8 10*3/uLNOTexas County Memorial Hospital Monocytes+Macrophages/100 WBC Manual cnt (Syn fld)8.7 %.[facility] Neutrophils (Bld) [#/Vol]7.3 10*3/uL1.8 - 7.7 10*3/uLNONJ Healthcare Neutrophils/100 WBC Manual cnt (Syn fld)68.8 %.[facility] Medical CenterNRBC0.1 /100{WBC}0 - 0.5 /100{WBC}[facility] Medical CenterPlatelet mean volume (Bld) [Entitic vol]8.9 fL6.3 - 10.7 fLSaint John's Breech Regional Medical CenterPlatelets (Bld) [#/Vol]167 10*3/uL150 - 450 10*3/uLNOMS Mercy Memorial HospitalRBC LM.HPF (Urine sed) [#/Area]5.32 10*6/uLHigh3.60 - 5.00 10*6/uLNOMS HealthcareWBC (Bld) [#/Vol]10.7 10*3/uL3.8 - 11.6 10*3/uLNOMS HealthcareWBC LM.HPF (Urine sed) [#/Area]10.7 10*3/uL3.8 - 11.6 10*3/uLNOMS [facility] HealthcareCalcium [Mass/volume] in Serum or PlasmaOrdered By: Nataliya Jane on 32-05-8800Ifnccvb [Mass/Vol]Calcium [Mass/volume] in Serum or Plasma8.6-10.3 [facility] HospitalCarbon dioxide, total [Moles/volume] in Serum or PlasmaOrdered By: Nataliya Jane on 92-00-6456RS5 [Moles/Vol]Carbon dioxide, total [Moles/volume] in Serum or Cyvvzf18.0-31.0[facility] HospitalChloride [Moles/volume] in Serum or PlasmaOrdered By: Nataliya Jane on 44-72-6389Fatavwwh [Moles/Vol]Chloride [Moles/volume] in Serum or Nqqzab98-194 [facility] HospitalComplete Blood Count Auto Diffon 04-14-2024 Basophils (Bld) [#/Vol]0.1 10*3/uLNormal0.0-0.2[facility] Physician Group Comment on above:Result Comment: PERFORMED BY: [facility] [address] [place] [address] PATHOLOGIST CIGARETTE VENDOR LE MACE M.D.Performed By: #### CMP, LDH, PATH SLIDE REV, CBC #### [facility] [address] [place] [address] USABasophils/100 WBC (Bld)0.6 %Normal.The [facility] Physician GroupComment on above:Performed By: #### CMP, LDH, PATH SLIDE REV, CBC #### [facility] [address] [place] [address] USAEosinophils (Bld) [#/Vol]0.3 10*3/uLNormal0.0-0.45The [facility] Physician GroupComment on above:Performed By: #### CMP, LDH, PATH SLIDE REV, CBC #### [facility] [address] [place] [address] USAEosinophils/100 WBC (Bld)2.6 %Normal.The [facility] Physician GroupComment on above:Performed By: #### CMP, LDH, PATH SLIDE REV, CBC #### [facility] [address] [place] [address] USAErythrocyte distribution width (RBC) [Ratio]15.0 %Normal 11.9-15.3The [facility] Physician GroupComment on above:Performed By: #### CMP, LDH, PATH SLIDE REV, CBC #### [place] [address] USAHematocrit (Bld) [Volume fraction]49.7 %High34.0-46.4The [facility] Physician GroupComment on above:Performed By: #### CMP, LDH, PATH SLIDE REV, CBC #### [place] [address] USAHemoglobin (Bld) [Mass/Vol]16.6 g/yTMnlb26.8-15.4The [facility] Physician GroupComment on above:Performed By: #### CMP, LDH, PATH SLIDE REV, CBC #### [place] [address] USALymphocytes (Bld) [#/Vol]2.1 10*3/uLNormal1.00-4.8The [facility] Physician GroupComment on above:Performed By: #### CMP, LDH, PATH SLIDE REV, CBC #### [place] [address] USALymphocytes/100 WBC (Bld)19.3 %Normal.The [facility] Physician GroupComment on above:Performed By: #### CMP, LDH, PATH SLIDE REV, CBC #### [place] [address] USAMCH (RBC) [Entitic mass]31.2 vqOiskzt42.7-34.3The [facility] Physician GroupComment on above:Performed By: #### CMP, LDH, PATH SLIDE REV, CBC #### [place] [address] USAMCV (RBC) [Entitic vol]93.4 pDBinwqy41-632Ndt [facility] Physician GroupComment on above:Performed By: #### CMP, LDH, PATH SLIDE REV, CBC #### [place] [address] USAMean Corpuscular HGB Conc33.4 g/mJLliugx19.0-35.0The [facility] Physician GroupComment on above:Performed By: #### CMP, LDH, PATH SLIDE REV, CBC #### [place] [address] USAMonocytes (Bld) [#/Vol]0.9 10*3/uLHigh0.0-0.8The [facility] Physician GroupComment on above:Performed By: #### CMP, LDH, PATH SLIDE REV, CBC #### [place] [address] USAMonocytes/100 WBC (Bld)8.7 %Normal.The [facility] Physician GroupComment on above:Performed By: #### CMP, LDH, PATH SLIDE REV, CBC #### [place] [address] USANeutrophils (Bld) [#/Vol]7.3 10*3/uLNormal1.8-7.7The [facility] Physician GroupComment on above:Performed By: #### CMP, LDH, PATH SLIDE REV, CBC #### [place] [address] USANeutrophils/100 WBC (Bld)68.8 %Normal.The [facility] Physician GroupComment on above:Performed By: #### CMP, LDH, PATH SLIDE REV, CBC #### [place] [address] USANRBC%0.1 /100{WBC}Normal0-0.5The [facility] Comment on above:Performed By: #### CMP, LDH, PATH SLIDE REV, CBC #### [place] [address] USAPlatelet mean volume (Bld) [Entitic vol]8.9 fLNormal 6.3-10.7The [facility] Physician GroupComment on above:Performed By: #### CMP, LDH, PATH SLIDE REV, CBC #### [place] [address] USAPlatelets (Bld) [#/Vol]167 10*3/sFVsuxol368-342Eoa [facility] Physician GroupComment on above:Performed By: #### CMP, LDH, PATH SLIDE REV, CBC #### [facility] [address] [place] [address] USARBC (Bld) [#/Vol]5.32 10*6/uLHigh3.60-5.00The [facility] Physician GroupComment on above:Performed By: #### CMP, LDH, PATH SLIDE REV, CBC #### [place] [address] USAWBC (Bld) [#/Vol]10.7 10*3/uLNormal3.8-11.6The [facility] Physician GroupComment on above:Performed By: #### CMP, LDH, PATH SLIDE REV, CBC #### [place] [address] USAComprehensive Metabolic Panelon 43-35-2734Aajxwut [Mass/Vol]4.1 g/dLNormal3.5-5.7The [facility] Physician GroupComment on above: Performed By: #### CMP, LDH, PATH SLIDE REV, CBC #### [place] [address] USAAlbumin/Globulin [Mass ratio]1.2 {ratio}NormalThe [facility] Physician GroupComment on above:Performed By: #### CMP, LDH, PATH SLIDE REV, CBC #### [place] [address] USAALP [Catalytic activity/Vol]92 U/GXijxhs28-628Wna [facility] Physician GroupComment on above:Performed By: #### CMP, LDH, PATH SLIDE REV, CBC #### [place] [address] USAALT [Catalytic activity/Vol]20 U/LNormal7-52The [facility] Physician GroupComment on above:Performed By: #### CMP, LDH, PATH SLIDE REV, CBC #### [place] [address] USAAnion gap [Moles/Vol]16.1 mmol/LHigh6.0-15.0The [facility] Physician GroupComment on above:Performed By: #### CMP, LDH, PATH SLIDE REV, CBC #### [place] [address] USAAST [Catalytic activity/Vol]26 U/NRizvop57-75Waq [facility] Physician GroupComment on above:Performed By: #### CMP, LDH, PATH SLIDE REV, CBC #### [place] [address] USABilirubin [Mass/Vol]0.6 mg/dLNormal0.3-1.0The [facility] Physician GroupComment on above:Performed By: #### CMP, LDH, PATH SLIDE REV, CBC #### [place] [address] USACalcium [Mass/Vol]10.0 mg/dLNormal8.6-10.3The [facility] Physician GroupComment on above:Performed By: #### CMP, LDH, PATH SLIDE REV, CBC #### [place] [address] USAChloride [Moles/Vol]101 mmol/ZUitvol80-692Szg [facility] Physician GroupComment on above:Performed By: #### CMP, LDH, PATH SLIDE REV, CBC #### [place] [address] USACO2 [Moles/Vol]26.9 mmol/NLheztl34.0-31.0The [facility] Physician GroupComment on above:Performed By: #### CMP, LDH, PATH SLIDE REV, CBC #### [place] [address] USACreatinine [Mass/Vol]0.83 mg/dLNormal0.60-1.20The [facility] Physician GroupComment on above:Performed By: #### CMP, LDH, PATH SLIDE REV, CBC #### [place] [address] USACreatinine Clr Calc Gvehftlr68.05NormalThe [facility] Physician GroupComment on above:Performed By: #### CMP, LDH, PATH SLIDE REV, CBC #### [facility] [address] [place] [address] USAGFR/1.73 sq M.predicted MDRD (S/P/Bld) [Vol rate/Area] mL/min/{1.73_m2}NormalThe [facility] Physician GroupComment on above:Performed By: #### CMP, LDH, PATH SLIDE REV, CBC #### [facility] [address] [place] [address] USAGlobulin (S) [Mass/Vol]3.3 g/dLNormalThe [facility] Physician GroupComment on above:Performed By: #### CMP, LDH, PATH SLIDE REV, CBC #### [facility] [address] [place] [address] USAGlucose [Mass/Vol]169 mg/lJEeal89-459Uhi [facility] Physician GroupComment on above:Result Comment: Random Glucose Reference Range is dependent on time and content of last meal. Glucose of more than 200 mg/dL in a nonstressed, ambulatory subject supports the diagnosis of Diabetes Mellitus. ADA recommended reference rangePerformed By: #### CMP, LDH, PATH SLIDE REV, CBC #### [facility] [address] [place] [address] USAPotassium [Moles/Vol]4.0 mmol/LNormal3.5-5.1The [facility] Physician GroupComment on above:Performed By: #### CMP, LDH, PATH SLIDE REV, CBC #### [facility] [address] [place] [address] USAProtein [Mass/Vol]7.4 g/dLNormal6.4-8.9The [facility] Physician GroupComment on above:Performed By: #### CMP, LDH, PATH SLIDE REV, CBC #### [facility] [address] [place] [address] USASodium [Moles/Vol]140 mmol/UBkzcpp023-875Dma [facility] Physician GroupComment on above:Performed By: #### CMP, LDH, PATH SLIDE REV, CBC #### [facility] [address] [place] [address] USAUrea nitrogen [Mass/Vol]8 mg/dLNormal7-25The [facility] Physician GroupComment on above:Performed By: #### CMP, LDH, PATH SLIDE REV, CBC #### [facility] [address] [place] [id number] USAComprehensive metabolic panelon 51-62-0221Vgtwahh [Mass/Vol]4.1 g/dL3.5 - 5.7 g/dLNOMS HealthcareAlbumin/Globulin [Mass [...] mg/dL0.60 - 1.20 mg/dLNOMS HealthcareCREATININE CLR CALC QBLKRHIZ52.05NOMS HealthcareESTIMATED GFRmL/MinNOMS HealthcareGlobulin (S) [Mass/Vol]3.3 g/dLNOMS HealthcareGlucose [Mass/Vol]169 mg/uBLwzo61 - 100 mg/dLNONJ HealthcareComment on above:Random Glucose Reference Range is [...] Creatinine [Mass/Vol]Creatinine [Mass/volume] in Serum or Plasma0.60-1.20 [facility] HospitalGlobulin Calc (S) [Mass/Vol]Ordered By: Nataliya Jane on 72-06-9630Zbfsfxpg (S) [Mass/Vol]Serum globulin measurement by calculation (mass/volume)[facility] HospitalGlucose [Mass/volume] in Serum or PlasmaOrdered By: Nataliya Jane on 58-05-7848Gvswmyq [Mass/Vol] Glucose [Mass/volume] in Serum or TbmtwmGeha36-667YzhjrdxzfLancaster Municipal HospitalComment on above:ADA recommended reference rangeRandom Glucose Reference Range is dependent on time and content of last meal. Glucose of more than 200 mg/dL in a nonstressed, ambulatory subject supports the diagnosisof Diabetes Mellitus.Juan 04-14-2024L Specimen: [id number] Received: 04/14/24 Status: FIDEL Knox Num: [id number] Spec Type: Impression Subm Dr: Nataliya Jane APRN Tissues: PATHPER Procedures: PATHREVIEW Age/ Patient Sex Location Account Attending Physician Taye Gay 68/F XT [id number] Nataliya Estephania Jane APRN SPEC NUM: [id number] RECD: 04/14/24 STATUS: FIDEL MARINOBrittany NUM: [id number] RONNY: 04/14/24- SUBM DR: Nataliya Jane APRN ENTERED: 04/14/[address]: CHRISTOPHER TYPE: Impression DEPT: [place] ENTERED BY: [id number] RECV BY: [id number] ORDERED: PATHREVIEW ORDERED: PATHREVIEW Pathologist Review Abnormal [...] chronic smoking. Clinical correlations are suggested CPT: 39548 Specimen: [id number] Received: 04/14/24 Status: KOKONicholas Knox Num: [id number] Spec Type: Impression Subm Dr: Nataliya Jane APRN Tissues: PATHPER Procedures: PATHREVIEW Patient: Taye Gay [id number] (Continued) Specimen: [id number] Received: 04/14/24 (Continued) Signed (signature on file) Nereyda Holt MD 04/15/24 0920 Specimen: [id number] Received: 04/14/24 Status: FIDEL Knox Num: [id number] Spec Type: Impression Subm Dr: Nataliya Jane APRN Tissues: PATHPER Procedures: PATHREVIEW Patient: Taye Gay [id number] (Continued) Specimen: [id number] Received: 04/14/24-1147 (Continued) CBC [...] % Lymp % (Auto) 19.3 . % Converse % (Auto) 8.7 . % Eos % (Auto) 2.6 . % Baso % (Auto) 0.6 . % NRBC% 0.1 0-0.5 /100 WBC Neut # (Auto) 7.3 1.8-7.7 x10E3/uL Lymph # (Auto) 2.1 1.00-4.8 x10E3/uL Converse # (Auto) 0.9 H 0.0-0.8 x10E3/uL Eos # (Auto) 0.3 0.0-0.45 x10E3/uL Baso# (Auto) 0.1 0.0-0.2 x10E3/uL Specimen: [id number] Received: 04/14/24 Status: FIDEL Knox Num: [id number] Spec Type: Impression Subm Dr: Nataliya Jane APRN Tissues: PATHPER Procedures: PATHREVIEW Patient: Taye Gay [id number] (Continued) Signed (signature on file) Nereyda Holt MD 04/15/24 0920[facility] Physician [facility] Lactate Dehydrogenaseon 81-33-2201QAV Lactate Nabvrvukikwub502 U/MTxalzw415-543Hke [facility] Physician GroupComment on above:Result Comment: PERFORMED BY: [facility] [address] [place] [address] PATHOLOGIST CIGARETTE VENDOR LE MACE M.D.Performed By: #### CMP, LDH, PATH SLIDE REV, CBC #### [facility] [address] [place] [address] USALDH Lactate to pyruvate reaction [Catalytic activity/Vol] on 25-19-9362IUJ LACTATE ZRLOWGIOQHSAX928 U/L140 - 271 U/LNOMS HealthcareLactate dehydrogenase [Enzymatic activity/volume] in Serum or Plasma by Lactate to py Ordered By: Nataliya Jane on 02-18-8274BDY Lactate to pyruvate reaction [Catalytic activity/Vol]Lactate dehydrogenase [Enzymatic activity/volume] in Serum or Plasma by Lactate to wa426-542UhijvxvxqLancaster Municipal HospitalNo Panel Informationon 64-81-2088MSOSSaint John's Breech Regional Medical CenterNo Panel InformationOrdered By: Nataliya Jane on 27-50-4127Viiaugnhe GFR (CKD-EPI)> 60.0 mL/MinLancaster Municipal HospitalPharmacy Creatinine Clearance (Chem78.05McKitrick Hospitallides for Pathologist ReviewOrdered path reviewLancaster Municipal HospitalPATHOLOGIST SLIDE REVIEW ([facility]on 45-89-5734IZPCMGJCOCA SLIDE REVIEW Ordered Path ReviewAsheville Specialty HospitalPathologist Slide Reviewon 80-06-2765Ttcayukhheq Slide ReviewOrdered Path ReviewNoFrye Regional Medical Center Physician GroupComment on above:Result Comment: PERFORMED BY: [address] [address] PATHOLOGIST CIGARETTE VENDOR LE MACE M.D.Performed By: #### CMP, LDH, PATH SLIDE REV, CBC #### [facility] [address] [place] [address] USAPotassium [Moles/volume] in Serum or PlasmaOrdered By: Nataliya Jane on 91-93-3480Fchiboqxj [Moles/Vol]Potassium [Moles/volume] in Serum or Plasma3.5-5.1FAshtabula County Medical CenterProtein [Mass/volume] in Serum or PlasmaOrdered By: Nataliya Jane on 86-96-4536Ktlblby [Mass/Vol]Protein [Mass/volume] in Serum or Plasma6.4-8.9McKitrick Hospitalerum or plasma albumin/globulin mass ratioOrdered By: Nataliya Jane on 04-14-2024 Albumin/Globulin [Mass ratio]Serum or plasma albumin/globulin mass ratio McKitrick Hospitalerum or plasma anion gap determinationOrdered By: Nataliya Jane on 75-80-0422Gjnso gap [Moles/Vol]Serum or plasma anion gap determinationHigh6.0-15.0McKitrick Hospitalodium [Moles/volume] in Serum or PlasmaOrdered By: Nataliya Jane on 44-06-1330Lnozsn [Moles/Vol] Sodium [Moles/volume] in Serum or Rasixa448-123GuccetflqL[facility] Hospital Urea nitrogen [Mass/volume] in Serum or PlasmaOrdered By: Nataliya Jane on 80-71-1240Ghft nitrogen [Mass/Vol]Urea nitrogen [Mass/volume] in Serum or Plasma 7-[facility] HospitalECG 12 [facility] 84-27-2021Qmpfug sinus rhythm [facility] Work Phone: UnPar[facility] Work Phone: aerobic cultureOrdered By: Karl Fritz on 11-42-3492Hmlxsval identified Aer cx Nom (Unsp spec)[facility] HospitalECG 12 [facility] 10-98-4066MaxnizhlanNewark Hospital Work Phone: Normal sinus rhythmCPACSNewark Hospital Work Phone: aNAon 68-48-3011VXFSRVHPEKG ABS, IFAPositiveCritically abnormal.NOMS HealthcareComment on above:Negative <1:80 [...] Scleroderma-diffuse, Scleroderma-Autoimmune Myositis Overlap Syndrome, Systemic Lupus Otkzyvknliwwf-Hnxhcddaprz-Kvbsvubdyc Myositis Overlap Syndrome, Systemic Autoimmune Rheumatic Disease, [...] Cytopenias, Linear Scleroderma, Antiphospholipid Syndrome Performed at: [address] [id number] Optometrist Assistant: Yuri Osullivan PhD, Phone: [phone] SPECKLED PATTERN1:320High.NOMS HealthcareComment on above:ICAP nomenclature: AC-2,4,5,29ANCA PROFILE (ANCA+MPO+PR3)on 74-91-9324PZYVPFIRBWDJCAUFKQD (MPO) ABS <0.20.0 - 0.9NOMS HealthcareATYPICAL PANCA<1:20Neg:<1:20NOMS HealthcareComment on above:The atypical pANCA pattern has been observed in a significant percentage of patients with ulcerative colitis, primary sclerosing cholangitis and autoimmune hepatitis. Performed at: [address] [id number] Optometrist Assistant: Christine Pham MD, Phone: [phone] Performed at: [address] [id number] Optometrist Assistant: Yuri Osullivan PhD, Phone: [phone] CYTOPLASMIC (C-ANCA)<1:20Neg:<1:20NOMS HealthcarePERINUCLEAR (P-ANCA)<1:20 Neg:<1:20NOMS HealthcareComment on above:The presence of positive fluorescence exhibiting P-ANCA or C-ANCA patterns alone is not specific for the diagnosis of Marni's Granulomatosis (WG) or microscopic polyangiitis. Decisions about treatment should not be based solely on ANCA IFA results. The International ANCA Group Consensus recommends follow up testing of positive sera with both MN- 3 and MPO-ANCA enzyme immunoassays. As many as 5% serum samples are positive only by EIA. Ref. AM J Clin Pathol 1999;111:507-513. PROTEINASE 3 (PR3) ANTIBODIES<0.20.0 - 0.9NOMS HealthcareANTI-CENTROMERE B ANTIBODIESon 77-07-2654ELVV-CENTROMERE B ANTIBODIES<0.20.0 - 0.9[facility] Comment on above:Performed at: [address] [id number] Optometrist Assistant: Yuri Osullivan PhD, Phone: [phone] ANTI-DSDNA(DBL)ABon 30-85-6469KTEV-DSDNA(DBL)AB10 - 9NOMS HealthcareComment on above:Negative <5 Equivocal 5 - 9 Positive >9 ANTI-RNPon 11-63-7106SQLB-RNP0.30.0 - 0.9NOMS HealthcareANTIRIBOSOMAL P ANTIBODIESon 40-13-5604XQBWDGIDFKHZF P ANTIBODIES<0.20.0 - 0.9[facility] Anti-Fritz antibodyon 40-83-8536NZRE-FRITZ ANTIBODIES<0.20.0 - 0.9NOMS HealthcareHISTONE ANTIBODIESon 99-22-4002YNRNUAI ANTIBODIES0.60.0 - 0.9NOMS HealthcareComment on above:Negative <1.0 Weak Positive 1.0 - 1.5 Moderate Positive 1.6 - 2.5 Strong Positive >2.5 Performed at: [facility] [id number] Optometrist Assistant: Christine Pham MD, Phone: [phone] SUSHMA-1 ANTIBODYon 82-64-8531PA-1 ANTIBODY<0.20.0 - 0.9NOMS HealthcareMitochondrial antibodies, M2on 77-53-8857JKHFUINQYBLSX (M2) ANTIBODY<20.00.0 - 20.0NOMS HealthcareComment on above:Negative 0.0 - 20.0 Equivocal 20.1 - 24.9 Positive >24.9 Mitochondrial (M2) Antibodies are found in 90-96% of patients with primary biliary cirrhosis. Performed at: [facility] [address] [place], [place] [id number] Optometrist Assistant: Yuri Osullivan PhD, Phone: [phone] No Panel Informationon 90-33-6875IPAV HealthcareSCLERODERMA 70 ANTIBODIESon 44-62-6084PSGLGEKEDWG 70 ANTIBODIES<0.20.0 - 0.9NOMS HealthcareSJOGRENS ANTI-SSA/SSBon 09-16-7385YZ-A/RO SJOGRENS ANTIBODY<0.20.0 - 0.9[facility] SS-B/LA SJOGRENS ANTIBODY<0.20.0 - 0.9NOMS HealthcareSRP AUTOANTIBODIESon 61-06-3672UEM (SIGNAL RECOG. PARTICLE)NegativeNegativeNONJ HealthcareComment on above:This test was developed and its performance characteristics determined by [employer]. It has not been cleared or approved by the Food and Drug Administration. Performed at: [facility] [address] [place] [id number] Optometrist Assistant: Juan Cruz MD, Phone: [phone] Alanine aminotransferase [Enzymatic activity/volume] in Serum or PlasmaOrdered By: Tolu Salinas on 49-19-8731HWA [Catalytic activity/Vol]31 U/L7-52[facility] HospitalAlbumin [Mass/volume] in Serum or Plasma by Bromocresol green (BCG) dye binding methoOrdered By: Tolu Salinas on 55-44-8380Growaho BCG dye [Mass/Vol]4.2 g/dL3.5-5.7FAshtabula County Medical CenterAlkaline phosphatase [Enzymatic activity/volume] in Serum or PlasmaOrdered By: Tolu Salinas on 83-60-2518DRF [Catalytic activity/Vol]75 U/C99-156ClxhaywweLancaster Municipal HospitalAspartate aminotransferase [Enzymatic activity/volume] in Serum or PlasmaOrdered By: Tolu Salinas on 25-70-6518ANF [Catalytic activity/Vol]37 U/L 13-39[facility] HospitalBasophil percentageOrdered By: Oz Kincaid on 28-46-7121Tfyuncsa ug/aJ32-952OssdyibqzLancaster Municipal Hospital Comment on above:This test was developed and its performance characteristicsdetermined by [employer]. It has not been cleared orapproved by the Food and Drug Administration. Detection Limit = 5Performed at: [place] [address] [place], [place] [id number] Director: Christine Pham MD, Phone: [phone] percentage2 ug/L0-9[facility] HospitalComment on above:This test was developed and its performance characteristicsdetermined by [employer]. It has not been cleared orapproved by the Food and Drug Administration. Detection Limit = 1Bilirubin.total [Mass/volume] in Serum or PlasmaOrdered By: Tolu Salinas on 67-49-4813Tweqnkxwv [Mass/Vol]0.4 mg/dL0.3-1.0[facility] HospitalBlood lead detectionOrdered By: Oz Kincaid on 09-52-6099Qumx Ql (Bld)<1.0 ug/dL0.0-3.4FAshtabula County Medical CenterComment on above:Testing performed by Inductively coupled plasma/MassSpectrometry.Analysis by inductively coupled plasma/massspectrometry (ICP/MS)This test was developed and its performance characteristicsdetermined by [employer]. It has not been cleared orapproved by the Food and Drug Administration. Environmental Exposure: WHO Recommendation <5.0 Occupational Exposure: OSHA Lead Std 40.0 BOB 30.0 Detection Limit = 1.0Performed at: [facility] [employer] [id number] Director: Yuri bynum PhD, Phone: [phone] mercury measurement (mass/volume)Ordered By: Oz Kincaid on 15-30-1617Qdtxckf (Bld) [Mass/Vol]<1.0 ug/L0.0-14.9[facility] HospitalComment on above:This test was developed and its performance characteristicsdetermined by [employer]. It has not been cleared orapproved by the Food and Drug Administration. Detection Limit = 1.0Performed at: [facility] [employer] [id number] Director: Christine Pham MD, Phone: [phone] [Mass/volume] in Serum or PlasmaOrdered By: Tolu Salinas on 24-21-4373Fwgsxiu [Mass/Vol]9.9 mg/dL 8.6-10.3FAshtabula County Medical CenterCarbon dioxide, total [Moles/volume] in Serum or PlasmaOrdered By: Tolu Salinas on 84-86-3193AD0 [Moles/Vol]32.0 mmol/LHigh21.0-31.0[facility] HospitalChloride [Moles/volume] in Serum or PlasmaOrdered By: Tolu Salinas on 44-50-3682Uftehggq [Moles/Vol]103 mmol/Q40-188MmwdjnizuLancaster Municipal HospitalCreatinine [Mass/volume] in Serum or PlasmaOrdered By: Tolu Salinas on 22-75-5142Ysturmdzug [Mass/Vol]0.97 mg/dL 0.60-1.20[facility] HospitalGlobulin Calc (S) [Mass/Vol]Ordered By: Tolu Salinas on 47-67-9352Kbdgikgv (S) [Mass/Vol]2.7 g/dLLancaster Municipal HospitalGlucose [Mass/volume] in Serum or PlasmaOrdered By: Tolu Salinas on 82-03-3840Fgazbfb [Mass/Vol]114 mg/pTAaph49-623EpqyxjcloLancaster Municipal HospitalComment on above:ADA recommended reference rangeRandom Glucose Reference Range is dependent on time and content of last meal. Glucose of more than 200 mg/dL in a nonstressed, ambulatory subject supports the diagnosisof Diabetes Mellitus.HIV 1 and HIV-2 antibody assay with HIV-1 p24 antigen detectionOrdered By: Oz Kincaid on 92-99-3886BWC 1+2 Ab+HIV1 p24 Ag IA QlNon-ReactiveNon Reactive [facility] HospitalComment on above:HIV-1/HIV-2 antibodies and HIV-1 p24 antigen were NOTdetected. There is no laboratory evidence of HIV infection.HIV NegativePerformed at: [address] [id number] Director: Yuri Osullivan PhD, Phone: [phone] B virus surface Ag [Presence] in Serum or Plasma by ImmunoassayOrdered By: Oz Kincaid on 84-93-8144IWE surface Ag IA QlNegativeNegativeLancaster Municipal HospitalHeuofl health - medical center southtis C virus IgG Ab [Presence] in Serum or Plasma by Immunoassay Ordered By: Oz Kincaid on 23-37-2832LST IgG IA QlNon-ReactiveNon ReactiveLancaster Municipal HospitalHepatitis C virus RNA [Units/volume] (viral load) in Serum or Plasma by TEJINDER with probOrdered By: Oz Kincaid on 98-20-4002BQC RNA TEJINDER+probe QnN/[facility] SystemHeuofl health - medical center southtis C virus RNA [log units/volume] (viral load) in Serum or Plasma by TEJINDER withOrdered By: Oz Kincaid on 49-98-4060XSC RNA TEJINDER+probe [Log units/Vol]N/[facility] Lactate dehydrogenase [Enzymatic activity/volume] in Serum or Plasma by Lactate to pyOrdered By: Oz Kincaid on 88-08-2489AWY Lactate to pyruvate reaction [Catalytic activity/Vol]156 U/U781-466EtmnrwfidLancaster Municipal HospitalMagnesium [Mass/volume] in Serum or PlasmaOrdered By: Tolu Salinas on 27-60-1605Ncifcgwib [Mass/Vol]2.0 mg/dL1.9-2.7FAshtabula County Medical CenterNo Panel Information Ordered By: Oz Kincaid on 22-37-1228Mjivqdbikxmrb Test 2See [facility] CenterComment on above:See report. Scanned copy available in EMR.Hepatitis A IgM AntibodyNegativeNegativeL[facility]aster Municipal Hospital Hepatitis B Core IgM AntibodyNegativeNegativeL[facility]aster [facility] Hospital Hepatitis C InterpretationComment.[facility] HospitalComment on above:Not infected with HCV unless early or acute infection issuspected (which may be delayed in an immunocompromisedindividual), or other evidence exists to indicate HCVinfection.Performed at: [facility] [employer] [id number] Director: Yuri Osullivan PhD, Phone: [phone] Ashtabula County Medical CenterComment on above:See report. Scanned copy available in EMR.Whole Blood Dgpi207 ug/rO563-344HaefmmtklLancaster Municipal HospitalComment on above:This test was developed and its performance characteristicsdetermined by [employer]. It has not been cleared orapproved by the Food and Drug Administration.Performed at: [facility] [id number] Director: Christine Pham MD, Phone: [phone] Panel InformationOrdered By: Tolu Salinas on 11-06-7623Nniqzdlxr GFR (CKD-EPI)> 60.0 mL/MinLancaster Municipal HospitalPharmacy Creatinine Clearance (ChemN/[facility] SystemPotassium [Moles/volume] in Serum or PlasmaOrdered By: Tolu Salinas on 64-86-4562Cnojfiruq [Moles/Vol]4.5 mmol/L3.5-5.1FAshtabula County Medical CenterProtein [Mass/volume] in Serum or PlasmaOrdered By: Tolu Salinas on 99-64-8712Djonrpu [Mass/Vol]6.9 g/dL6.4-8.9 [facility] Hospitalerum angiotensin converting enzyme (VITA) measurementOrdered By: Oz Kincaid on 49-95-5935Mqhbbhqcagj converting enzyme [Catalytic activity/Vol]53 U/V49-58SkxxvkqdqLancaster Municipal HospitalComment on above:Performed at: [facility] Director: Yuri Osullivan PhD, Phone: [phone] cryoglobulin detection Ordered By: Oz Kincaid on 26-97-4077Xjjygzutlnpr Ql (S)CommentNone detected [facility] HospitalComment on above:None Detected at 72 hoursThis test was developed and its performance characteristicsdetermined by [employer]. It has not been cleared orapproved by the Food and Drug Administration.Performed at: [facility] [address] [id number] Director: Yuri Osullivan PhD, Phone: [phone] or plasma albumin/globulin mass ratioOrdered By: Tolu Salinas on 94-79-6049Yddgadq/Globulin [Mass ratio]1.6 {ratio}[facility] Hospitalerum or plasma anion gap determination Ordered By: Tolu Salinas on 35-82-4901Cevfk gap [Moles/Vol]8.5 mmol/L6.0-15.0 [facility] Hospitalerum or plasma ceruloplasmin measurement (mass/volume)Ordered By: Oz Kincaid on 34-86-7582Elsxdmgjheneo [Mass/Vol]26.8 mg/dL19.0-39.0[facility] HospitalComment on above:Performed at: [facility] [id number] Director: Yuri Osullivan PhD, Phone: [phone] or plasma complement C3 measurement (mass/volume)Ordered By: Oz Kincaid on 68-84-5892Hdeahqpfmh C3 [Mass/Vol]147 mg/dL 82-167[facility] HospitalComment on above:Performed at: [address] [id number] Director: Yuri Osullivan PhD, Phone: [phone] or plasma complement C4 measurement (mass/volume)Ordered By: Oz Kincaid on 39-09-5057Oecfeuyuqo C4 [Mass/Vol]32 mg/dL 12-38McKitrick Hospitalodium [Moles/volume] in Serum or Plasma Ordered By: Tolu Salinas on 41-79-2240Dwzncj [Moles/Vol]139 mmol/T205-533 [facility] HospitalThallium [Mass/volume] in Serum or Plasma Ordered By: Oz Kincaid on 71-10-0180Lsonabkx [Mass/Vol]<1.0 ng/mL<5.0[facility] HospitalComment on above:Thallium concentrations greater than 300 ng/ml are consistent with acute toxicity. Urine is the preferred specimen for assessment of thallium exposure. Thallium analysis performed by inductively coupled plasma / mass spectrometry (ICP/MS).This test was developed and its performance characteristicsdetermined by [employer]. It has not been cleared or approvedby the Food and Drug Administration.Performed at: [employer] [address] [id number] Director: Whitney Arevalo [facility], Phone: [phone] nitrogen [Mass/volume] in Serum or Plasma Ordered By: Tolu Salinas on 72-00-3677Fqii nitrogen [Mass/Vol]11 mg/dL7-25 [facility] HospitalLACTATE AND PYRUVATEon 28-21-9513Wkklkzkdhpoajy and review of laboratory resultsAbnormalNOMS HealthcareLACTIC ACID, XQYTUO26.1 mg/dLHigh4.8 - 25.7 mg/dLNOMS HealthcarePYRUVIC ACID, BLOOD0.7 mg/dL0.3 - 0.7 mg/dLNOMS HealthcareComment on above:This test was developed and its performance characteristics determined by [employer]. It has not been cleared or approved by the Food and Drug Administration. Performed at: [facility] [address] [place], [place] [id number] Optometrist Assistant: Yuri Osullivan PhD, Phone: [phone] Performed at: [address] [id number] Optometrist Assistant: Christine Pham MD, Phone: [phone] NOMS HealthcareDNA double strand Ab [Units/volume] in SerumOrdered By: Oz Kincaid on 42-70-7553KQX double strand Ab Qn (S)1 [IU]/mL0-9[facility] HospitalComment on above:Negative <5 Equivocal 5 - 9 Positive >9Myeloperoxidase Ab [Units/volume] in Serum by ImmunoassayOrdered By: Oz Kincaid on 11-26-2023 Myeloperoxidase Ab IA Qn (S)<0.2 units0.0-0.9[facility] HospitalNo Panel InformationOrdered By: Oz Kincaid on 94-51-8119Eeaq-Nuclear Antibody Comment 2Comment.[facility] HospitalComment on above:Pattern Potential Disease Association Homogeneous Systemic Lupus Erythematosus, Drug Induced Systemic Lupus Erythematosus, Chronic Autoimmune hepatitis, Juvenile Idiopathic Arthritis Speckled Sjogren Syndrome, Systemic Lupus Erythematosus, Subacute Cutaneous Lupus, Lupus, Congenital Heart Block, Mixed Connective Tissue Disease, Scleroderma-diffuse, Scleroderma- Autoimmune Myositis Overlap Syndrome, Systemic Lupus Ihcgpjambtkyo-Rjaapnerjdj-Kwgkhazevo Myositis Overlap Syndrome, Systemic Autoimmune Rheumatic Disease, [...] Cytopenias, Linear Scleroderma, Antiphospholipid Syndrome Performed at: [facility] [id number] Director: Yuri Osullivan PhD, Phone: [phone] p-ANCA<1:20 titerNeg:<1:20[facility] HospitalComment on above:The atypical pANCA pattern has been observed in asignificant percentage of patients with ulcerativecolitis,primary sclerosing cholangitis and autoimmune hepatitis.Performed at: [facility] [id number] Director: Christine Pham MD, Phone: [phone] at: [employer] [id number] Director: Yuri Osullivan PhD, Phone: [phone] ANCA (p-ANCA) Antibody<1:20 titerNeg:<1:20[facility] Comment on above:The presence of positive fluorescence exhibiting P-ANCA orC- ANCA patterns alone is not specific forthe diagnosis ofWegener's Granulomatosis (WG) or microscopic polyangiitis.Decisions about treatmentshould not be based solely onANCA IFA results. The International ANCA Group Consensusrecommends foll ow up testing of positive sera with both MN-3 and MPO-ANCA enzyme immunoassays. As many as 5% serumsamples are positive only by EIA. Ref. AM J Clin Uyxrsj7163;111:507-513.Plasma Lactic Acid, Ftaqeh21.1 mg/dLHigh4.8-25.7FAshtabula County Medical CenterPyruvic Acid0.7 mg/dL0.3-0.7FAshtabula County Medical CenterComment on above:This test was developed and its performance characteristicsdetermined by [employer]. It has not been cleared orapproved by the Food and Drug Administration.Performed at: [facility] [employer] [id number] Director: Yuri Osullivan PhD, Phone: [phone] at: [facility] [id number] Director: Christine Pham MD, Phone: [phone] Antibody0.3 AI 0.0-0.9McKitrick Hospitalcl-70 (Scleroderma) Antibody<0.2 AI 0.0-0.9McKitrick Hospitalignal Recognition Particle (SRP) NegativeNegativeLancaster Municipal HospitalComment on above:This test was developed and its performance characteristicsdetermined by [employer]. It has not been cleared orapproved by the Food and Drug Administration.Performed at: [facility] [employer] [address] [id number] Director: Juan Cruz MD, Phone: [phone] 3 Ab [Units/volume] in Serum by ImmunoassayOrdered By: Oz Kincaid on 27-00-8775Jyvzbnrxam 3 Ab IA Qn (S)<0.2 units 0.0-0.9[facility] HospitalRibosomal P Ab [Units/volume] in Serum Ordered By: Oz Kincaid on 89-03-7957Xyetsqaih P Ab Qn (S)<0.2 AI0.0-0.9[facility] Hospitalerum Sushma-1 extractable nuclear antibody assay (units/volume)Ordered By: Oz Kincaid on 85-64-0141Nb-1 extractable nuclear Ab Qn (S)<0.2 AI0.0-0.9Mc[facility] Hospitalerum Sjogrens syndrome-A extractable nuclear antibody assay (units/volume)Ordered By: Oz Kincaid on 49-91-2818Zniolguj syndrome-A extractable nuclear Ab Qn (S)<0.2 AI0.0-0.9 [facility] Hospitalerum Sjogrens syndrome-B extractable nuclear antibody assay (units/volume)Ordered By: Oz Kincaid on 65-08-3067Vftialui syndrome-B extractable nuclear Ab Qn (S)<0.2 AI0.0-0.9Mc[facility]rick Hospitalerum Fritz extractable nuclear antigen (ARIELLE) antibody assay (units/volume)Ordered By: Oz Kincaid on 05-36-2337Nnlor extractable nuclear Ab Qn (S)<0.2 AI0.0-0.9Mc[facility] Hospitalerum centromere protein B antibody assay (units/volume)Ordered By: Oz Kincaid on 95-72-3406Rvftkszwiu protein B Ab Qn (S)<0.2 AI0.0-0.9[facility] HospitalComment on above:Performed at: [facility] [id number] Director: Yuri Osullivan PhD, Phone: [phone] classic neutrophil cytoplasmic antibody titer by immunofluorescenceOrdered By: Oz Kincaid on 24-17-2182Awfmcsqieq cytoplasmic Ab.classic IF (S) [Titer]<1:20 titerNeg:<1:20 [facility] Hospitalerum histone IgG antibody assay by immunoassay (units/volume)Ordered By: Oz Kincaid on 46-93-1102Otymbvf IgG IA Qn (S)0.6 Units 0.0-0.9[facility] HospitalComment on above:Negative <1.0 Weak Positive 1.0 - 1.5 Moderate Positive 1.6 - 2.5 Strong Positive >2.5Performed at: [employer] [facility] [id number] Director: Christine Scott, Phone: [phone] homogeneous pattern antinuclear antibody (PO) titerOrdered By: Oz Kincaid on 83-84-3848Prtwufblaj nuclear Ab pattern (S) [Titer]N/AFAdams County Regional Medical Centererum mitochondria M2 IgG antibody assay (units/volume)Ordered By: Oz Kincaid on 58-48-3363Ikrprkospkis M2 IgG Qn (S)<20.0 Units0.0-20.0[facility] HospitalComment on above: Negative 0.0 - 20.0 Equivocal 20.1 - 24.9 Positive >24.9Mitochondrial (M2) Antibodies are found in 90-96% ofpatients with primary biliary cirrhosis.Performed at: [facility] [id number] Director: Yuri Osullivan PhD, Phone: [phone] nuclear antibody titerOrdered By: Oz Kicnaid on 62-73-4981Hvlbcas Ab (S) [Titer]Positive Abnormal.[facility] HospitalComment on above:Negative <1:80 Borderline 1:80 Positive >1:80Serum speckled pattern antinuclear antibody (PO) titerOrdered By: Oz Kincaid on 68-90-7215Pzmswfkn nuclear Ab pattern (S) [Titer] 1:320High.[facility] HospitalComment on above:ICAP nomenclature: AC-2,4,5,29Aspartate aminotransferase [Enzymatic activity/volume] in Serum or PlasmaOrdered By: Jonas Ch on 81-77-4669VFY [Catalytic activity/Vol]45 U/HIcjp20-22CijgqtkvgLancaster Municipal HospitalCalcium [Mass/volume] in Serum or PlasmaOrdered By: Jonas Ch on 14-76-9421Xifyfjx [Mass/Vol]10.7 mg/dLHigh 8.6-10.3FAshtabula County Medical CenterCarbon dioxide, total [Moles/volume] in Serum or PlasmaOrdered By: Jonas Ch on 43-14-3134DQ9 [Moles/Vol]27.7 mmol/L21.0-31.0[facility] HospitalChloride [Moles/volume] in Serum or PlasmaOrdered By: Jonas Ch on 85-44-7145Noojrzpp [Moles/Vol]102 mmol/W61-412NcdxsmdqxLancaster Municipal HospitalCreatinine [Mass/volume] in Serum or PlasmaOrdered By: Jonas Ch on 98-89-9155Floladxlac [Mass/Vol]1.02 mg/dL0.60-1.20[facility] HospitalCreatinine [Mass/volume] in Urine Ordered By: Angelique Russell on 73-01-5702Dwqodakuzc (U) [Mass/Vol]123.00 mg/dL [facility] HospitalComment on above:No reference range established Glucose [Mass/volume] in Serum or PlasmaOrdered By: Jonas Ch on 10-30-1863Jgkfpjr [Mass/Vol]158 mg/zJLeiu06-465CcvbryowmLancaster Municipal Hospital Comment on above:ADA recommended reference rangeRandom Glucose Reference Range is dependent on time and content of last meal. Glucose of more than 200 mg/dL in a nonstressed, ambulatory subject supports the diagnosisof Diabetes Mellitus. Microalbumin [Mass/volume] in UrineOrdered By: Angelique Russell on 89-12-6137Rqrtczo DL <= 20 mg/L (U) [Mass/Vol]3.0 mg/dLHigh0.0-1.8[facility] HospitalNo Panel InformationOrdered By: Jonas Ch on 31-59-4826Hfutdhcjo GFR (CKD-EPI)> 60.0 mL/MinLancaster Municipal HospitalPharmacy Creatinine Clearance (ChemN/AFAshtabula County Medical CenterPotassium [Moles/volume] in Serum or PlasmaOrdered By: Jonas Ch on 77-52-2479Xhtzzxiyc [Moles/Vol]4.1 mmol/L3.5-5.1FAdams County Regional Medical Centererum or plasma anion gap determinationOrdered By: Jonas Ch on 88-99-0161Fhzfe gap [Moles/Vol]12.4 mmol/L6.0-15.0McKitrick Hospitalodium [Moles/volume] in Serum or PlasmaOrdered By: Jonas Ch on 00-77-9548Fskvim [Moles/Vol]138 mmol/L 136-145[facility] HospitalThyrotropin [Units/volume] in Serum or PlasmaOrdered By: Jonas Ch on 02-75-2138NFH Qn3.39 m[IU]/L0.45-5.33 [facility] HospitalUrea nitrogen [Mass/volume] in Serum or Plasma Ordered By: Jonas Ch on 29-82-4020Jjww nitrogen [Mass/Vol]20 mg/dL7-25 [facility] HospitalUrine microalbumin/creatinine mass ratioOrdered By: Angelique Russell on 88-29-0347Ftvhmvk/Creatinine DL <= 20 mg/L (U) [Mass ratio] 24.4 mg/g0.0-30.0[facility] HospitalComment on above:30-300 mg/g indicates an increased risk for diabetic nephropathy. Greater than 300 mg/g is consistent with clinical nephropathy. (Am. J. Kidney Disease 1995, 25:107)No Panel Informationon 01-58-3323Fimnfgq Uuxoaax418ZodcsnkmmLancaster Municipal HospitalECG [address] [place] 38-50-5092Cyzvjd sinus rhythm Normal EKG QTc 457 [facility] Work Phone: basophils Auto (Bld) [#/Vol]Ordered By: Chaka Frye on 60-13-1896Nonumtoxp (Bld) [#/Vol]0.0 10*3/uL0.0-0.2FAshtabula County Medical CenterBasophils/100 WBC Auto (Bld)Ordered By: Chaka Frye on 84-66-2953Gtzmxmvzq/100 WBC (Bld)0.5 %.[facility] HospitalCalcium [Mass/volume] in Serum or PlasmaOrdered By: Chaka Frye on 14-89-1158Htxayeg [Mass/Vol]9.5 mg/dL8.6-10.3FAshtabula County Medical Center Carbon dioxide, total [Moles/volume] in Serum or PlasmaOrdered By: Chaka Frye on 84-67-4391SF9 [Moles/Vol]30.0 mmol/L21.0-31.0[facility] HospitalChloride [Moles/volume] in Serum or PlasmaOrdered By: Chaka Frye on 91-40-4828Focxqlbd [Moles/Vol]103 mmol/O75-401TryiyotojLancaster Municipal HospitalCreatinine [Mass/volume] in Serum or PlasmaOrdered By: Chaka Frye on 70-42-3072Hvktcqqpmz [Mass/Vol]0.98 mg/dL0.60-1.20[facility] HospitalEosinophils Auto (Bld) [#/Vol]Ordered By: Chaka Frye on 22-57-4271Ujompwkwgma (Bld) [#/Vol]0.4 10*3/uL0.0-0.45[facility] HospitalEosinophils/100 WBC Auto (Bld)Ordered By: Chaka Frye on 21-97-1432Iyjoozoiaof/100 WBC (Bld)5.2 %.[facility] HospitalErythrocyte distribution width Auto (RBC) [Ratio]Ordered By: Chaka Frye on 59-05-0132Ybsgivlwegr distribution width (RBC) [Ratio]14.0 % 11.9-15.3FAshtabula County Medical CenterGlucose Glucometer (BldC) [Mass/Vol] Ordered By: Chaka Frye on 77-40-1155Dqrrxkg [Mass/Vol]137 mg/dL [facility] HospitalComment on above:Random Glucose Reference Range is dependent on time and content of last meal. Glucose of more than 200 mg/dL in a nonstressed, ambulatory subject supports the diagnosis of Diabetes Mellitus.Glucose [Mass/volume] in Serum or PlasmaOrdered By: Chaka Frye on 10-22-9725Hwnccds [Mass/Vol]102 mg/fHRwcv39-294CvbktdndsLancaster Municipal HospitalComment on above:ADA recommended reference rangeRandom Glucose Reference Range is dependent on time and content of last meal. Glucose of more than 200 mg/dL in a nonstressed, ambulatory subject supports the diagnosisof Diabetes Mellitus.Hematocrit Auto (Bld) [Volume fraction]Ordered By: Chaka Frye on 40-10-6449Hewjgrqysf (Bld) [Volume fraction]44.6 %34.0-46.4FAshtabula County Medical CenterHemoglobin [Mass/volume] in BloodOrdered By: Chaka Frye on 57-77-5321Hzumxctncu (Bld) [Mass/Vol]14.6 g/dL11.8-15.4FAshtabula County Medical CenterLeukocytes [#/volume] corrected for nucleated erythrocytes in Blood by Automated counOrdered By: Chaka Frye on 80-39-7211FDA corrected for nucl RBC Auto (Bld) [#/Vol]7.4 10*3/uL3.8-11.6FAshtabula County Medical CenterLymphocytes Auto (Bld) [#/Vol]Ordered By: Chaka Frye on 80-08-8634Tlcwtuzrsok (Bld) [#/Vol]2.3 10*3/uL1.00-4.8[facility] HospitalLymphocytes/100 WBC Auto (Bld)Ordered By: Chaka Frye on 64-76-9106Egwoldizuqy/100 WBC (Bld)30.8 %.[facility] Auto (RBC) [Entitic mass]Ordered By: Chaka Frye on 06-36-1233NGS (RBC) [Entitic mass]32.2 pg24.7-34.3FAshtabula County Medical CenterMCHC Auto (RBC) [Mass/Vol]Ordered By: Chaka Frye on 41-10-5168SOWS (RBC) [Mass/Vol]32.8 g/dL32.0-35.0[facility] HospitalMCV Auto (RBC) [Entitic vol] Ordered By: Chaka Frye on 95-97-8483PHQ (RBC) [Entitic vol]98.1 fL 80-100[facility] HospitalMagnesium [Mass/volume] in Serum or PlasmaOrdered By: Chaka Frye on 63-60-6244Uaaxytgvf [Mass/Vol]1.9 mg/dL 1.9-2.7FAshtabula County Medical CenterMonocytes Auto (Bld) [#/Vol]Ordered By: Chaka Frye on 41-08-0967Yppvbuctu (Bld) [#/Vol]0.8 10*3/uL0.0-0.8 [facility] HospitalMonocytes/100 WBC Auto (Bld)Ordered By: Chaka Frye on 23-04-4601Plgzbbgos/100 WBC (Bld)11.0 %.[facility] HospitalNeutrophils Auto (Bld) [#/Vol]Ordered By: Chaka Frye on 06-40-2999Qpvdhmrtjmg (Bld) [#/Vol]3.9 10*3/uL1.8-7.7FAshtabula County Medical CenterNeutrophils/100 WBC Auto (Bld)Ordered By: Chaka Frye on 56-28-0855Xrflqhqimqx/100 WBC (Bld)52.5 %.[facility] HospitalNo Panel InformationOrdered By: Chaka Frye on 11-12-2023 Estimated GFR (CKD-EPI)> 60.0 mL/MinLancaster Municipal HospitalPharmacy Creatinine Clearance (Chem63.39[facility] HospitalNucleated erythrocytes [Presence] in Blood by Automated countOrdered By: Chaka Frye on 76-84-8294Ezfmyhmxu RBC Auto Ql (Bld)0.1 /100{WBC}0-0.5FAshtabula County Medical CenterPlatelet mean volume Auto (Bld) [Entitic vol]Ordered By: Chaka Frye on 45-45-4910Wbgqdkpi mean volume (Bld) [Entitic vol]9.1 fL 6.3-10.7FAshtabula County Medical CenterPlatelets Auto (Bld) [#/Vol]Ordered By: Chaka Frye on 93-67-2719Uavxytuxy (Bld) [#/Vol]155 10*3/xH863-138 [facility] HospitalPotassium [Moles/volume] in Serum or Plasma Ordered By: Chaka Frye on 34-69-2016Hnlcambpy [Moles/Vol]4.4 mmol/L 3.5-5.1FAshtabula County Medical CenterRBC Auto (Bld) [#/Vol]Ordered By: Chaka Frye on 62-93-4400ZAR (Bld) [#/Vol]4.54 10*6/uL3.60-5.00McKitrick Hospitalerum or plasma anion gap determinationOrdered By: Chaka Frye on 04-82-5365Vjnox gap [Moles/Vol]10.4 mmol/L6.0-15.0 [facility] Hospitalodium [Moles/volume] in Serum or PlasmaOrdered By: Chaka Frye on 12-60-9438Hikfjs [Moles/Vol]139 mmol/X940-477 [facility] HospitalUrea nitrogen [Mass/volume] in Serum or Plasma Ordered By: Chaka Frye on 61-95-5955Nfqp nitrogen [Mass/Vol]18 mg/dL 7-25[facility] HospitalWBC Auto (Bld) [#/Vol]Ordered By: Chaka Frye on 77-96-6936UUR (Bld) [#/Vol]7.4 10*3/uL3.8-11.6FAshtabula County Medical CenterGlucose mean value [Mass/volume] in Blood Estimated from glycated hemoglobinOrdered By: Jluis Campos on 37-48-2957Wmxyvpd glucose Estimated from glycated hemoglobin (Bld) [Mass/Vol]143 mg/dLLancaster Municipal Hospital Hemoglobin A1c percentageOrdered By: Jluis Campos on 62-50-5387YvS4h (Bld) [Mass fraction]6.6 %High4.3-5.6FAshtabula County Medical CenterComment on above: Increased risk for diabetes: 5.7 - 6.4diabetes: >6.4glycemic control for adults with diabetes: <7.0LACTATE AND PYRUVATEon 12-10-7111NRILLL ACID, PLASMA.NOMS HealthcareComment on above:Test not performed. Supernatant is required. CONTACTED YOUR FACILity on 11-05-2023 PYRUVIC ACID, BLOOD.NOMS HealthcareComment on above:Test not performedNOTexas County Memorial HospitalNo Panel InformationOrdered By: Kirt Renae on 17-07-1796[facility] Antibody 0.2 AI0.0-0.9McKitrick Hospitalerum Sushma-1 extractable nuclear antibody assay (units/volume)Ordered By: Kirt Renae on 47-24-5790Ji-1 extractable nuclear Ab Qn (S)<0.2 AI0.0-0.9[facility] Comment on above:Performed at: [facility] CenterMagfzq[address] [place] [address] [id number] Director: Yuri Osullivan PhD, Phone: [phone] Sjogrens syndrome-A extractable nuclear antibody assay (units/volume)Ordered By: Kirt Renae on 59-08-8791Jmpsrdbm syndrome-A extractable nuclear Ab Qn (S)<0.2 AI 0.0-0.9Mc[facility]rick Hospitalerum Sjogrens syndrome-B extractable nuclear antibody assay (units/volume)Ordered By: Kirt Renae on 11-11-2023 Sjogrens syndrome-B extractable nuclear Ab Qn (S)<0.2 AI0.0-0.9McKitrick Hospitalerum or plasma thyroglobulin antibody assay (units/volume)Ordered By: Kirt Renae on 92-47-2348Utqnjlrkrexcz Ab Qn[IU]/mL 0.0-0.9[facility] HospitalComment on above:Thyroglobulin Antibody measured by Mami CoulterMethodologyIt should be noted that the presence of thyroglobulinantibodies may not be pathogenic nor diagnostic, especiallyat very low levels. The assay infection prevention practitioner has found thatfour percent of individuals without evidence of thyroiddisease or autoimmunity will have positive TgAb levels upto 4 IU/mL.Performed at: [facility] CenterAolbpj[address] [place], [place] [id number] Director: Yuri Osullivan PhD, Phone: [phone] or plasma thyroperoxidase antibody assay (units/volume)Ordered By: Kirt Renae on 37-20-0303PHE Ab Qn[IU]/mL0-34[facility] HospitalThyroxine (T4) free [Mass/volume] in Serum or PlasmaOrdered By: Kirt Renae on 68-59-9403Zqiz T4 [Mass/Vol]0.83 ng/dL0.61-1.12[facility] Triiodothyronine (T3) Free [Mass/volume] in Serum or PlasmaOrdered By: Kirt Renae on 31-45-5979Lktm T3 [Mass/Vol]2.60 pg/mL2.50-3.90[facility] HospitalAlanine aminotransferase [Enzymatic activity/volume] in Serum or PlasmaOrdered By: Rl Villavicencio on 55-06-1993EWY [Catalytic activity/Vol]19 U/L 7-52[facility] HospitalAlbumin [Mass/volume] in Serum or Plasma by Bromocresol green (BCG) dye binding methoOrdered By: Rl Villavicencio on 11-10-2023 Albumin BCG dye [Mass/Vol]4.2 g/dL3.5-5.7FAshtabula County Medical Center Alkaline phosphatase [Enzymatic activity/volume] in Serum or PlasmaOrdered By: Rl Villavicencio on 85-24-3874BPM [Catalytic activity/Vol]60 U/J69-258VulcxmxjqLancaster Municipal HospitalAspartate aminotransferase [Enzymatic activity/volume] in Serum or PlasmaOrdered By: Rl Villavicencio on 69-83-8793JSV [Catalytic activity/Vol]29 U/G78-11NlvlljfjgLancaster Municipal HospitalBacteria [Presence] in Urine by AutomatedOrdered By: Rl Villavicencio on 33-23-5699Zdsstzer Auto Ql (U)1+ [HPF]HighNone SeenLancaster Municipal HospitalBasophils Auto (Bld) [#/Vol] Ordered By: Rl Villavicencio on 21-91-9849Orefqgxyj (Bld) [#/Vol]0.1 10*3/uL0.0-0.2 [facility] HospitalBasophils/100 WBC Auto (Bld)Ordered By: Rl Villavicencio on 44-04-4763Sxsdabxpk/100 WBC (Bld)0.9 %.[facility] HospitalBilirubin Test strip Ql (U)Ordered By: Rl Villavicencio on 16-74-6968Caznmyyjd Ql (U)NegativeNegativeLancaster Municipal HospitalBilirubin.total [Mass/volume] in Serum or PlasmaOrdered By: Rl Villavicencio on 08-64-8550Cpzyjghcy [Mass/Vol]0.4 mg/dL0.3-1.0[facility] HospitalC reactive protein [Mass/volume] in Serum or PlasmaOrdered By: Kirt Renae on 74-66-8988EMG [Mass/Vol]< 0.5 mg/dL0.0-0.5FAshtabula County Medical CenterCalcium [Mass/volume] in Serum or PlasmaOrdered By: Rl Villavicencio on 37-86-7457Qsvhbxj [Mass/Vol]9.6 mg/dL8.6-10.3FAshtabula County Medical CenterCarbon dioxide, total [Moles/volume] in Serum or PlasmaOrdered By: Rl Villavicencio on 04-11-2814YZ5 [Moles/Vol]25.4 mmol/L21.0-31.0[facility] HospitalChloride [Moles/volume] in Serum or PlasmaOrdered By: Rl Villavicencio on 25-50-2378Zujpllwk [Moles/Vol]105 mmol/F54-202UylezodydLancaster Municipal HospitalColor Auto (U) Ordered By: Rl Villavicencio on 60-38-7234Ivpcc (U)Light-yellowYellowLancaster Municipal HospitalCreatine kinase [Enzymatic activity/volume] in Serum or PlasmaOrdered By: Rl Villavicencio 17-13-4189YT [Catalytic activity/Vol]69 U/L 30-223[facility] HospitalCreatinine [Mass/volume] in Serum or PlasmaOrdered By: Rl Villavicencio 64-55-4880Ddegacbxqn [Mass/Vol]0.93 mg/dL 0.60-1.20[facility] HospitalEosinophils Auto (Bld) [#/Vol]Ordered By: Rl Villavicencio on 47-82-2659Jfvurfsclsu (Bld) [#/Vol]0.3 10*3/uL0.0-0.45 [facility] HospitalEosinophils/100 WBC Auto (Bld)Ordered By: Rl Villavicencio on 06-55-0128Omyvjaeegmn/100 WBC (Bld)3.7 %.[facility] HospitalEpithelial cells.squamous [#/area] in Urine sediment by Automated countOrdered By: Rl Villavicencio on 41-89-6642Iuqgnyeiyb cells.squamous Auto (Urine sed) [#/Area]5-9 [HPF]High0-2FAshtabula County Medical CenterErythrocyte distribution width Auto (RBC) [Ratio]Ordered By: Rl Villavicencio on 11-10-2023 Erythrocyte distribution width (RBC) [Ratio]13.5 %11.9-15.3FAshtabula County Medical CenterErythrocyte sedimentation rate by Photometric methodOrdered By: Kirt Renae on 25-86-0337WBV Photometric method (Bld) [Velocity]40 mm/hrHigh 0-29[facility] HospitalErythrocytes [#/area] in Urine sediment by Automated countOrdered By: Rl Villavicencio on 69-50-8134EJE Auto (Urine sed) [#/Area]5-9 [HPF]High04FAshtabula County Medical CenterFolate [Mass/volume] in Serum or PlasmaOrdered By: Kirt Renae on 49-34-1254Mpfyds [Mass/Vol]19.6 ng/mL>5.9[facility] HospitalComment on above:Folate reference range: >5.9 ng/mlThe WHO technical consultation on folate and vitamin d31eucyicz ncies has determined that folate concentrations lessthan 4 ng/ml are considered deficient.Globulin Calc (S) [Mass/Vol]Ordered By: Rl Villavicencio on 11-10-2023 Globulin (S) [Mass/Vol]2.9 g/dLLancaster Municipal HospitalGlucose [Mass/volume] in Serum or PlasmaOrdered By: Rl Villavicencio on 15-83-0839Wwsghhm [Mass/Vol]95 mg/wQ37-918XrykujkjbLancaster Municipal HospitalComment on above:ADA recommended reference rangeRandom Glucose Reference Range is dependent on time and content of last meal. Glucose of more than 200 mg/dL in a nonstressed, ambulatory subject supports the diagnosisof Diabetes Mellitus.Glucose [Mass/volume] in Urine by Test stripOrdered By: Rl Villavicencio on 11-10-2023 Glucose Test strip (U) [Mass/Vol]1000 mg/dLHighNormMercy Health Anderson HospitalHematocrit Auto (Bld) [Volume fraction]Ordered By: Rl Villavicencio on 89-75-2373Iocbiseukd (Bld) [Volume fraction]44.9 %34.0-46.4FAshtabula County Medical CenterHemoglobin Test strip Ql (U)Ordered By: Rl Villavicencio on 11-10-2023 Hemoglobin Ql (U)NegativeNegUniversity Hospitals Elyria Medical CenterHemoglobin [Mass/volume] in BloodOrdered By: Rl Villavicencio on 79-07-8792Zjwfsvmesi (Bld) [Mass/Vol]15.0 g/dL11.8-15.4FAshtabula County Medical CenterHyaline casts [#/area] in Urine sediment by Automated countOrdered By: Rl Villavicencio on 78-94-2276Qozjjky casts Auto (Urine sed) [#/Area]None [LPF]0-8[facility] HospitalKetones Test strip Ql (U)Ordered By: Rl Villavicencio on 11-10-2023 Ketones Ql (U)NegativeNegUniversity Hospitals Elyria Medical CenterLeukocyte clumps [Presence] in Urine by AutomatedOrdered By: Rl Villavicencio on 04-69-4158Ikwtpqfxe clumps Auto Ql (U)Occasional [LPF]HighNone [facility] Leukocyte esterase [Presence] in Urine by Test stripOrdered By: Rl Villavicencio on 93-28-5753Zdcigaihv esterase Test strip Ql (U)4+HighNegUniversity Hospitals Elyria Medical CenterLeukocytes [#/area] in Urine sediment by Automated countOrdered By: Rl Villavicencio on 96-27-3966QRF Auto (Urine sed) [#/Area]20-49 [HPF]High0-4 [facility] HospitalLeukocytes [#/volume] corrected for nucleated erythrocytes in Blood by Automated counOrdered By: Rl Villavicencio on 46-31-7198QGA corrected for nucl RBC Auto (Bld) [#/Vol]8.5 10*3/uL3.8-11.6FAshtabula County Medical CenterLymphocytes Auto (Bld) [#/Vol]Ordered By: Rl Villavicencio on 35-04-2207Nyxppolagop (Bld) [#/Vol]2.2 10*3/uL1.00-4.8[facility] HospitalLymphocytes/100 WBC Auto (Bld)Ordered By: Rl Villavicencio on 11-10-2023 Lymphocytes/100 WBC (Bld)26.0 %.[facility] HospitalH Auto (RBC) [Entitic mass]Ordered By: Rl Villavicencio on 11-01-4469IZU (RBC) [Entitic mass]32.6 pg24.7-34.3FAshtabula County Medical CenterMCHC Auto (RBC) [Mass/Vol]Ordered By: Rl Villavicencio on 59-82-6294NWFA (RBC) [Mass/Vol]33.3 g/dL32.0-35.0[facility] HospitalMCV Auto (RBC) [Entitic vol]Ordered By: Rl Villavicencio on 12-26-6638VGV (RBC) [Entitic vol]97.8 mV30-523FvvyxlejaLancaster Municipal Hospital Magnesium [Mass/volume] in Serum or PlasmaOrdered By: Rl Villavicencio on 11-10-2023 Magnesium [Mass/Vol]1.7 mg/dLLow1.9-2.7FAshtabula County Medical CenterMonocyte distribution width [Entitic volume] in Blood by AutomatedOrdered By: Rl Villavicencio on 83-60-9879Vbnvlrli distribution width Auto (Bld) [Entitic vol]19.74 % 0.00-20.00[facility] HospitalMonocytes Auto (Bld) [#/Vol]Ordered By: Rl Villavicencio on 84-14-4550Ffiaktxid (Bld) [#/Vol]0.7 10*3/uL0.0-0.8[facility] HospitalMonocytes/100 WBC Auto (Bld)Ordered By: Rl Villavicencio on 42-91-8113Khpipguee/100 WBC (Bld)8.2 %.[facility] Neutrophils Auto (Bld) [#/Vol]Ordered By: Rl Villavicencio on 47-02-9777Cafmllsebxf (Bld) [#/Vol]5.2 10*3/uL1.8-7.7FAshtabula County Medical CenterNeutrophils/100 WBC Auto (Bld)Ordered By: Rl Villavicencio on 10-52-7557Nhdmlnycyle/100 WBC (Bld) 61.2 %.[facility] HospitalNitrite Test strip Ql (U)Ordered By: Rl Villavicencio on 06-60-0615Vmqttob Ql (U)NegativeNegUniversity Hospitals Elyria Medical CenterNo Panel InformationOrdered By: Kirt Renae on 34-96-5469Biridii Glucose CommentGlu2: cleaned meterLancaster Municipal HospitalNo Panel InformationOrdered By: Rl Villavicencio on 05-30-4773Dxryvpahf GFR (CKD-EPI)> 60.0 mL/MinLancaster Municipal HospitalPharmacy Creatinine Clearance (Chem66.28 [facility] HospitalNucleated erythrocytes [Presence] in Blood by Automated countOrdered By: Rl Villavicencio on 49-02-8629Twphcnejv RBC Auto Ql (Bld) 0.1 /100{WBC}0-0.5FAshtabula County Medical CenterPlatelet mean volume Auto (Bld) [Entitic vol]Ordered By: Rl Villavicencio on 65-59-9591Renhrhlq mean volume (Bld) [Entitic vol]8.7 fL6.3-10.7FAshtabula County Medical CenterPlatelets Auto (Bld) [#/Vol]Ordered By: Rl Villavicencio on 94-04-7057Kfuoprxmb (Bld) [#/Vol]149 10*3/vABsy220-096XjxntdeqjLancaster Municipal HospitalPotassium [Moles/volume] in Serum or PlasmaOrdered By: Rl Villavicencio on 80-83-1315Fzzrqfybw [Moles/Vol]4.6 mmol/L3.5-5.1FAshtabula County Medical CenterComment on above:Hemolysis is present at a level that could interfere with the result.Contact lab if redraw is requiredProtein Test strip (U) [Mass/Vol]Ordered By: Rl Villavicencio on 11-10-2023 Protein (U) [Mass/Vol]NegativeNegUniversity Hospitals Elyria Medical CenterProtein [Mass/volume] in Serum or PlasmaOrdered By: Rl Villavicencio on 81-09-5119Cqyvddz [Mass/Vol]7.1 g/dL6.4-8.9[facility] HospitalRBC Auto (Bld) [#/Vol] Ordered By: Rl Villavicencio on 57-01-2923CLT (Bld) [#/Vol]4.59 10*6/uL3.60-5.00 [facility] Hospitalerum or plasma albumin/globulin mass ratio Ordered By: Rl Villavicencio on 27-61-2373Ayrbbqb/Globulin [Mass ratio]1.4 {ratio} [facility] Hospitalerum or plasma anion gap determinationOrdered By: Rl Villavicencio on 02-66-7533Dqavx gap [Moles/Vol]11.2 mmol/L6.0-15.0McKitrick Hospitalodium [Moles/volume] in Serum or PlasmaOrdered By: Rl Villavicencio on 45-13-7894Xrwwde [Moles/Vol]137 mmol/Y951-746HbzvksowaMcKitrick Hospitalpecific gravity Test strip (U) [Rel density]Ordered By: Rl Villavicencio on 99-71-8016Jjpcshgf gravity (U) [Rel density]1.0071.001-1.030[facility] HospitalThyrotropin [Units/volume] in Serum or PlasmaOrdered By: Jluis Campos on 98-17-6826YSV Qn5.73 m[IU]/LHigh0.45-5.33[facility] HospitalUrea nitrogen [Mass/volume] in Serum or PlasmaOrdered By: Rl Villavicencio on 75-33-5010Bdea nitrogen [Mass/Vol]14 mg/dL7-25[facility] HospitalUrine appearanceOrdered By: Rl Villavicencio on 92-33-9542Focxhtvkdb (U)Clear ClearLancaster Municipal HospitalUrine culture routineOrdered By: Rl Villavicencio on 27-29-9756Pspbcsyy identified Cx Nom (U)2 DaysLancaster Municipal HospitalUrobilinogen Test strip (U) [Mass/Vol]Ordered By: Rl Villavicencio on 10-90-2208Kyzyhnkpobgf (U) [Mass/Vol]Normal mg/dLNormalLancaster Municipal HospitalVitamin B12 ser/plasOrdered By: Kirt Renae on 11-10-2023 Cobalamin (Vitamin B12) [Mass/Vol]306 pg/rD614-824EfcnmwaaeLancaster Municipal HospitalVitamin D+Metabolites [Mass/volume] in Serum or PlasmaOrdered By: Jluis Campos on 52-14-7101Qurricp D+Metabolites [Mass/Vol]61.3 ng/rS97-096IjlaskdmgLancaster Municipal HospitalComment on above:Hemolysis is present at a level that could interfere with the result.Contact lab if redraw is requiredVITAMIN D STATUS 25(OH)VITAMIN D RANGE (ng/mL) Deficient <20 Insufficient 20 to <30Sufficient 30 to 100Reference: Sandra MF,Felisha SCANLON, Leon SHERWOOD, et al. Evaluation,treatment, and prevention of vitamin D deficiency; an Endocrine Society clinical practice guideline. JCEM. 2010;96(7):1911-30.WBC Auto (Bld) [#/Vol]Ordered By: Rl Villavicencio on 83-28-4127HMQ (Bld) [#/Vol]8.5 10*3/uL 3.8-11.6FAshtabula County Medical CenterpH Test strip (U)Ordered By: Rl Villavicencio on 15-17-4703yJ (U)6.0 [pH]5.0-9.0[facility] HospitalGlucose Glucometer (BldC) [Mass/Vol]Ordered By: OSORIO WHITE on 37-54-9147Etfimiv [Mass/Vol]139 mg/dLLancaster Municipal HospitalComment on above:Random Glucose Reference Range is dependent on time and content of last meal. Glucose of more than 200 mg/dL in a nonstressed, ambulatory subject supports the diagnosis of Diabetes Mellitus.Carbon dioxide, total [Moles/volume] in Serum or PlasmaOrdered By: Jonas Ch on 75-47-9667EB4 [Moles/Vol]28.6 mmol/L 21.0-31.0[facility] HospitalChloride [Moles/volume] in Serum or PlasmaOrdered By: Jonas Ch on 71-77-2022Hrilqfuy [Moles/Vol]104 mmol/L 98-107[facility] HospitalPotassium [Moles/volume] in Serum or PlasmaOrdered By: Jonas Ch on 83-01-4993Ejvkvezxl [Moles/Vol]4.6 mmol/L 3.5-5.1FAdams County Regional Medical Centererum or plasma anion gap determination Ordered By: Jonas Ch on 29-61-0943Mssgk gap [Moles/Vol]11.0 mmol/L 6.0-15.0Mc[facility]rick Hospitalodium [Moles/volume] in Serum or PlasmaOrdered By: Jonas Ch on 10-34-9782Gigtch [Moles/Vol]139 mmol/L 136-145[facility] HospitalAlanine aminotransferase [Enzymatic activity/volume] in Serum or PlasmaOrdered By: Oz Kincaid on 26-51-7301AGI [Catalytic activity/Vol]23 U/L7-52[facility] HospitalAlbumin [Mass/volume] in Serum or PlasmaOrdered By: Oz Kincaid on 22-26-1267Guutogf [Mass/Vol]4.2 g/dL2.9-4.4FAshtabula County Medical CenterAlbumin/Protein.total in 24 hour Urine by ElectrophoresisOrdered By: Oz Kincaid on 31-17-4209Dkonyyw Elph (24H U) [Mass fraction]35.7 %.[facility] HospitalAlpha tocopherol [Mass/volume] in Serum or PlasmaOrdered By: Oz Kincaid on 10-30-2023 Alpha tocopherol [Mass/Vol]8.7 mg/LLow9.0-29.0[facility] Comment on above:This test was developed and its performance characteristicsdetermined by [employer]. It has not been cleared orapproved by the Food and Drug Administration.Aspartate aminotransferase [Enzymatic activity/volume] in Serum or PlasmaOrdered By: Oz Kincaid on 24-08-9583HLA [Catalytic activity/Vol]26 U/Y92-71TnsjgyiewLancaster Municipal HospitalBorrelia burgdorferi Ab [Interpretation] in SerumOrdered By: Oz Kincaid on 10-30-2023. burgdorferi Ab (S) [Interp]N/[facility] SystemBorrelia burgdorferi IgG Ab [Presence] in Serum or Plasma by ImmunoassayOrdered By: Oz Kincaid on 10-30-2023. burgdorferi IgG IA QlN/[facility] Borrelia burgdorferi IgG+IgM Ab [Presence] in Serum by ImmunoassayOrdered By: Oz Kincaid on 10-30-2023. burgdorferi IgG+IgM IA Ql (S)NegativeNegativeLancaster Municipal HospitalComment on above:Lyme antibodies not detected. Reflex testing is notindicated.No laboratory evidence of infection with B. burgdorferi(Lyme disease). Negative results may occur in patientsrecently infected (less than or equal to 14 days) with B.burgdorferi. If recent infection is suspected, repeattesting on a new sample collected in 7 to 14 days isrecommended.Performed at: [facility] [id number] Director: Yuri Osullivan PhD, Phone: [phone] antibodies not detected. Reflex testing is notindicated.No laboratory evidence of infection with B. burgdorferi(Lyme disease). Negative results may occur in patientsrecently infected (less than or equal to 14 days) with B.burgdorferi. If recent infection is suspected, repeattesting on a new sample collected in 7 to 14 days isrecommended.Performed at: [facility] [id number] Director: Yuri Osullivan PhD, Phone: [employer] Lyme antibodies not detected.Reflex testing is notindicated.No [...] collected in7 to 14 days isrecommended.Performed at: [facility] [place] [id number] Director: Yuri Osullivan PhD, Phone: [phone] burgdorferi IgM Ab [Presence] in Serum or Plasma by ImmunoassayOrdered By: Oz Kincaid on 10-30-2023. burgdorferi IgM IA QlN/A [facility] HospitalC reactive protein [Mass/volume] in Serum or Plasma by High sensitivity methodOrdered By: Oz Kincaid on 52-51-8954SIP High sensitivity method [Mass/Vol]2.2 mg/LHigh0.0-0.9[facility] HospitalComment on above:Cardiovascular Risk Classification (AHA/CDC)hsCRP < [...] CVD risk.CT biopsyOrdered By: Oz Kincaid on 61-09-6199CG biopsy5.0 U/L3.3-10.3FAshtabula County Medical Center Comment on above:Performed at: [facility] [place] [id number] Director: Yuri Osullivan PhD, Phone: [phone] kinase [Enzymatic activity/volume] in Serum or PlasmaOrdered By: Oz Kincaid on 10-30-2023 CK [Catalytic activity/Vol]46 U/Z38-571GusqrvbdnLancaster Municipal Hospital Erythrocyte sedimentation rate by Photometric methodOrdered By: Oz Kincaid on 91-17-1086XVY Photometric method (Bld) [Velocity]26 mm/hr0-29[facility] HospitalFolate [Mass/volume] in Serum or PlasmaOrdered By: Oz Kincaid on 82-00-4734Aomptp [Mass/Vol]34.0 ng/mL>5.9[facility] Comment on above:Folate reference range: >5.9 ng/mlThe WHO technical consultation on folate and vitamin z40wrdlgkudvcak has determined that folate concentrations lessthan 4 ng/ml are considered deficient.Gamma globulin/Protein.total in 24 hour Urine by ElectrophoresisOrdered By: Oz Kincaid on 84-58-3703Adrpf globulin Elph (24H U) [Mass fraction]23.2 %.[facility] HospitalGamma-tocopherol measurement (mass/volume)Ordered By: Oz Kincaid on 91-73-4417Ycsjz tocopherol [Mass/Vol]0.7 mg/L0.5-4.9[facility] HospitalComment on above:This test was developed and its performance characteristicsdetermined by [facility]. It has not been cleared orapproved by the Food and Drug Administration.Reference intervals for alpha and gamma-tocopheroldetermined from National Health and Nutrition ExaminationSurvey, 9186-1638. Individuals with alpha-tocopherol levelsless than 5.0 mg/L are considered vitamin E deficient.Glucose mean value [Mass/volume] in Blood Estimated from glycated hemoglobinOrdered By: Oz Kincaid on 10-30-2023 Average glucose Estimated from glycated hemoglobin (Bld) [Mass/Vol]143 mg/dL [facility] HospitalHemoglobin A1c percentageOrdered By: Oz Kincaid on 58-45-4790JwO1s (Bld) [Mass fraction]6.6 %High4.3-5.6FAshtabula County Medical CenterComment on above:Increased risk for diabetes: 5.7 - 6.4diabetes: >6.4glycemic control for adults with diabetes: <7.0IgA [Mass/volume] in Serum or PlasmaOrdered By: Oz Kincaid on 86-49-9405RgK [Mass/Vol]265 mg/dJ50-961 [facility] HospitalIgG [Mass/volume] in Serum or PlasmaOrdered By: Oz Kincaid on 19-91-4641BkH [Mass/Vol]1034 mg/lV578-3113LgqzeyicwLancaster Municipal HospitalIgM [Mass/volume] in Serum or PlasmaOrdered By: Oz Kincaid on 70-01-2583PhZ [Mass/Vol]48 mg/tW01-094RuzckrwjaLancaster Municipal HospitalComment on above:Performed at: [facility] [id number] Director: Yuri Osullivan PhD, Phone: [phone] for UrineOrdered By: Oz Kincaid on 71-60-6732Vpajufwzxjzvfw Immunofixation (U) [Interp]See comment.[facility] HospitalComment on above:No monoclonality detected.Performed at: [facility] LabThe Cameron GroupHoboken University Medical CenterJxihql[address] [place], [place] [id number] Director: Yuri Osullivan PhD, Phone: [phone] Panel InformationOrdered By: Oz Kincaid on 77-34-6463Fpqk-Nuclear Antibody Comment 2See comment.[facility] HospitalComment on above:Pattern Potential Disease Association Homogeneous Systemic Lupus Erythematosus, Drug Induced Systemic Lupus Erythematosus, Chronic Autoimmune hepatitis, Juvenile Idiopathic Arthritis Speckled Sjogren Syndrome, Systemic Lupus Erythematosus, Subacute Cutaneous Lupus, Lupus, Congenital Heart Block, Mixed Connective Tissue Disease, Scleroderma-diffuse, Scleroderma- Autoimmune Myositis Overlap Syndrome, Systemic Lupus Mdxnhihvmwpri-Aoitqcausxh-Pspayhcuem Myositis Overlap Syndrome, Systemic Autoimmune Rheumatic Disease, [...] Cytopenias, Linear Scleroderma, Antiphospholipid Syndrome Performed at: [facility] [address] [id number] Director: Christine Pham MD, Phone: [phone] at: [id number] [place], [place] [id number] Director: Yuri Osullivan PhD, Phone: [phone] Potential Disease Association Homogeneous Systemic Lupus Erythematosus, Drug Induced Systemic Lupus Erythematosus, Chronic Autoimmune hepatitis, Juvenile Idiopathic Arthritis Speckled Sjogren Syndrome, Systemic Lupus Erythematosus, Subacute Cutaneous Lupus, Lupus, Congenital Heart Block, Mixed Connective Tissue Disease, Scleroderma-diffuse, Scleroderma- Autoimmune Myositis Overlap Syndrome, Systemic Lupus Lkmatczyyjavp-Vkryesbjtxt-Kyymyyxclr Myositis Overlap Syndrome, Systemic Autoimmune Rheumatic Disease, [...] Cytopenias, Linear Scleroderma, Antiphospholipid Syndrome Performed at: [facility] [id number] Director: Christine Pham MD, Phone: [phone] at: [address] [id number] Director: Yuri Osullivan PhD, Phone: [phone] Pattern Potential Disease Association Homogeneous Systemic Lupus Erythematosus, Drug Induced Systemic Lupus Erythematosus, Chronic Autoimmune hepatitis, Juvenile Idiopathic Arthritis Speckled Sjogren Syndrome, Systemic Lupus Erythematosus, Subacute Cutaneous Lupus, Lupus, Congenital Heart Block, Mixed ConnectiveTissue Disease, Scleroderma-diffuse, Scleroderma- Autoimmune Myositis Overlap Syndrome, Systemic Lupus Geycrusmbfbvw-Qkothmrzjef-Qvjhnfcflt Myositis Overlap Syndrome, Systemic Autoimmune Rheumatic Disease, [...] Linear Scleroderma, AntiphospholipidSyndrome Performed at: - [facility] [address] [id number] Director: Yuri Osullivan PhD, Phone: [phone] at: - [facility] [address] [place], [place] [id number] Director: Christine Scott, Phone: [phone] --- 11/06/23 1236 ---PO IFA Note 1 previously reported as: Pattern PotentialDisease Association Homogeneous Systemic Lupus Erythematosus, Drug Induced Systemic Lupus Erythematosus, Chronic Autoimmune hepatitis, Juvenile Idiopathic Arthritis Speckled Sjogren Syndrome, Systemic Lupus Erythematosus, Subacute Cutaneous Lupus, Lupus, Congenital Heart Block, Mixed Connective Tissue Disease, Scleroderma-diffuse, Scleroderma- Autoimmune Myositis Overlap Syndrome, Systemic Lupus Odigcwebvbihz-Kxwhvvtqjsc-Mkquyzuosk Myositis Overlap Syndrome, Systemic Auto immune Rheumatic [...] Linear Scleroder (more content not included)... Lactate/Pyruvate InterpretationN/[facility] SystemPlasma Lactic Acid, VenousSee comment.[facility] HospitalComment on above:Test not performed. Supernatant is required.CONTACTED YOUR FACILity on 11-05-2023 Protein Electrophoresis M-SpikeNot observed g/dLNot ObservedLancaster Municipal HospitalProtein Electrophoresis NoteSee comment.[facility] HospitalComment on above:Protein electrophoresis scan will follow via computer,mail, or dials inspector delivery.Pyruvic AcidSee comment.[facility] HospitalComment on above:Test not performedSerum ImmunofixationSee comment .[facility] HospitalComment on above:No monoclonality detected. Urine Random Prot Electrophor NoteSee comment.[facility] Comment on above:Protein electrophoresis scan will follow via computer,mail, or dials inspector delivery.Performed at: [facility] [employer] [id number] Director: Yuri Osullivan PhD, Phone: [phone] Blood Zinc 909 ug/wMMreg558-944EahyjxjocLancaster Municipal HospitalComment on above:This test was developed and its performance characteristicsdetermined by [employer]. It has not been cleared orapproved by the Food and Drug Administration.Performed at: [facility] [id number] Director: Christine Pham MD, Phone: [phone] test was developed and its performance characteristicsdetermined by [employer]. It has not been cleared orapproved by the Food and Drug Administration.Performed at: [address] [id number] Director: Christine Pham MD, Phone: [phone] This test was developed and its performance characteristicsdetermined by [employer]. It has not been cleared orapprovedby the Food and Drug Administration. --- 11/06/23 1236 ---Zinc,WB previously reported as: 909 H ug/d LThis test was developed and its performance characteristicsdetermined by [employer]. It has not been cleared orapproved by the Food and Drug Administration.Performed at: [address] [id number] Director: Christine Pham MD, Phone: [phone] [Mass/volume] in Serum or PlasmaOrdered By: Oz Kincaid on 25-07-0120Ihdusih [Mass/Vol]7.7 g/dL6.0-8.5FAshtabula County Medical CenterProtein [Mass/volume] in UrineOrdered By: Oz Kincaid on 35-00-4085Lndowuh (U) [Mass/Vol]28.8 mg/dLNot Estab.[facility] HospitalProtein.monoclonal/Protein.total in 24 hour Urine by ElectrophoresisOrdered By: Oz Kincaid on 10-30-2023 Protein.monoclonal Elph (24H U) [Mass fraction]Not observed %Not Observed [facility] HospitalReagin Ab [Presence] in Serum by RPROrdered By: Oz Kincaid on 60-05-4875Hbogab Ab RPR Ql (S)Non-ReactiveNon ReactiveLancaster Municipal HospitalComment on above:Performed at: [address] [id number] Director: Yuri Osullivan PhD, Phone: [phone] West Nile virus IgG antibody detection by immunoassayOrdered By: Oz Kincaid on 36-39-0245Sowt Nile virus IgG IA Ql (S)NegativeNegativeMcKitrick Hospitalerum West Nile virus IgM antibody detection by immunoassayOrdered By: Oz Kincaid on 03-31-1642Ncyo Nile virus IgM IA Ql (S) NegativeNegativeLancaster Municipal HospitalComment on above:Performed at: - [facility] [address] [id number] Director: Christine Pham MD, Phone: [phone] globulin measurement (mass/volume) Ordered By: Oz Kincaid on 04-30-4176Uourqpus (S) [Mass/Vol]3.5 g/dL2.2-3.9 McKitrick Hospitalerum homogeneous pattern antinuclear antibody (PO) titerOrdered By: Oz Kincaid on 10-91-2774Pwmqtdpsjg nuclear Ab pattern (S) [Titer]N/AFAdams County Regional Medical Centererum nuclear antibody titerOrdered By: Oz Kincaid on 92-69-9784Hyiykra Ab (S) [Titer]PositiveAbnormal.[facility] HospitalComment on above:Negative <1:80 Borderline 1:80 Positive >1:80Serum or plasma albumin/globulin mass ratioOrdered By: Oz Kincaid on 95-55-1401Simyjtw/Globulin [Mass ratio]1.2 {ratio}0.7-1.7FAdams County Regional Medical Centererum or plasma alpha 1 globulin measurement by electrophoresis (mass/volume)Ordered By: Oz Kincaid on 25-18-1538Wfqrh 1 globulin Elph [Mass/Vol] 0.3 g/dL0.0-0.4FAdams County Regional Medical Centererum or plasma alpha 2 globulin measurement by electrophoresis (mass/volume)Ordered By: Oz Kincaid on 10-30-2023 Alpha 2 globulin Elph [Mass/Vol]1.0 g/dL0.4-1.0[facility] Serum or plasma beta globulin measurement by electrophoresis (mass/volume) Ordered By: Oz Kincaid on 22-96-4536Kcry globulin Elph [Mass/Vol]1.1 g/dL0.7-1.3 McKitrick Hospitalerum or plasma ceruloplasmin measurement (mass/volume)Ordered By: Oz Kincaid on 84-55-9553Pcatxjzwubkmy [Mass/Vol]30.1 mg/dL19.0-39.0[facility] HospitalComment on above:Performed at: - [facility] [address] [id number] Director: Yuri Osullivan PhD, Phone: [phone] or plasma gamma globulin measurement by electrophoresis (mass/volume)Ordered By: Oz Kincaid on 60-69-7428Elobl globulin Elph [Mass/Vol]1.1 g/dL0.4-1.8McKitrick Hospitalerum or plasma homocysteine measurement (moles/volume)Ordered By: Oz Kincaid on 10-30-2023 Homocysteine [Moles/Vol]20.7 umol/LHigh0.0-17.2FAshtabula County Medical Center Comment on above:Performed at: [facility] [id number] Director: Yuri Osullivan PhD, Phone: [phone] or plasma lutropin measurement (units/volume)Ordered By: Oz Kincaid on 48-41-8700Cufvovio Qn 60.4 m[IU]/mLHigh7.7-58.5FAshtabula County Medical CenterComment on above:Adult Female Range Follicular phase 2.4 - 12.6 Ovulation phase 14.0 - 95.6 Luteal phase 1.0 - 11.4 Postmenopausal 7.7 - 58.5Serum or plasma methylmalonate measurement (moles/volume)Ordered By: Oz Kincaid on 17-74-9329Ldtxyyrzbgxnox [Moles/Vol]247 nmol/L0-378[facility] HospitalComment on above:This test was developed and its performance characteristicsdetermined by [employer]. It has not been cleared orapproved by the Food and Drug Administration.Performed at: [facility] [id number] Director: Christine Pham MD, Phone: [phone] test was developed and its performance characteristicsdetermined by [employer]. It has not been cleared orapproved by the Food and Drug Administration.Performed at: [facility] [id number] Director: Christine Pham MD, Phone: [phone] This test was developed and its performance characteristicsdetermined by [employer]. It has not been cleared orapprovedby the Food and Drug Administration. --- 11/06/23 1236 ---Methylmal Acid previously reported as: 247 nmol/LThis test was developed and its performance characteristicsdetermined by [employer]. It has notbeen cleared orapproved by the Food and Drug Administration.Performed at: [facility] [employer] [id number] Director: Christine Pham MD, Phone: [phone] or plasma pyridoxine measurement (mass/volume)Ordered By: Oz Kincaid on 07-71-5615Glooptjvml [Mass/Vol]8.8 ug/L3.4-65.2FAshtabula County Medical CenterComment on above:This test was developed and its performance characteristicsdetermined by [employer]. It has not been cleared orapproved by the Food and Drug Administration. Deficiency: <3.4 Marginal: 3.4 - 5.1 Adequate: >5.1Performed at: [facility] [id number] Director: Christine Pham MD, Phone: [phone] or plasma rheumatoid factor measurement (units/volume)Ordered By: Oz Kincaid on 10-30-2023 Rheumatoid factor Qn[IU]/mL<14.0McKitrick Hospitalerum speckled pattern antinuclear antibody (PO) titerOrdered By: Oz Kincaid on 10-30-2023 Speckled nuclear Ab pattern (S) [Titer]1:80.[facility] Comment on above:ICAP nomenclature: AC-2,4,5,29Thyrotropin [Units/volume] in Serum or PlasmaOrdered By: Oz Kincaid on 06-24-9882WSS Qn6.38 m[IU]/LHigh0.45-5.33 [facility] HospitalThyroxine (T4) free [Mass/volume] in Serum or PlasmaOrdered By: Oz Kincaid on 14-82-5035Ygqe T4 [Mass/Vol]0.89 ng/dL0.61-1.12 [facility] HospitalUrine alpha 1 globulin/total protein by electrophoresisOrdered By: Oz Kincaid on 69-88-1625Sxiyk 1 globulin Elph (U) [Mass fraction]0.4 %.[facility] HospitalUrine alpha 2 globulin/total protein ratio by electrophoresisOrdered By: Oz Kincaid on 12-18-3545Pybio 2 globulin Elph (U) [Mass fraction]8.9 %.[facility] HospitalUrine beta globulin measurement by electrophoresis (mass/volume)Ordered By: Oz Kincaid on 17-28-4730Ifno globulin Elph (U) [Mass/Vol]31.7 %.[facility] HospitalVitamin B12 ser/plasOrdered By: Oz Kincaid on 90-90-3962Cyadjauvk (Vitamin B12) [Mass/Vol]300 pg/jE024-059RzhczheooLancaster Municipal HospitalGlucose Glucometer (BldC) [Mass/Vol]Ordered By: Elva Florian on 53-43-4928Ryykxma [Mass/Vol]134 mg/dLLancaster Municipal HospitalComment on above:Random Glucose Reference Range is dependent on time and content of last meal. Glucose of more than 200 mg/dL in a nonstressed, ambulatory subject supports the diagnosis of Diabetes Mellitus.No Panel InformationOrdered By: Elva Florian on 96-42-9376Etjfpfi Glucose CommentGlu2: cleaned meterLancaster Municipal HospitalCholesterol [Mass/volume] in Serum or PlasmaOrdered By: Elva Florian on 95-49-6366Mbpyrgljkdy [Mass/Vol]125 mg/nYFnv266-933YhtiptfjgLancaster Municipal HospitalComment on above:Chol less than 200 mg/dl low riskChol 201-239 mg/dl borderline riskChol 240 mg/dl and greater high riskCholesterol in LDL Calc [Mass/Vol]Ordered By: Elva Florian on 42-21-4625Addbqvawhfe in LDL [Mass/Vol] 59 mg/dL0-100[facility] HospitalComment on above:LDL ATP III CLASSIFICATIONLDL less than 100 mg/dL OptimalLDL 100-129 mg/dL Near or above eqpzxdzPUP806-034 mg/dL Borderline highLDL 160-189 mg/dL HighLDL greater than 189 mg/dL Very highCholesterol in VLDL Calc [Mass/Vol]Ordered By: Elva Florian on 07-69-4504Uxubloeltgm in VLDL [Mass/Vol]39 mg/dLLancaster Municipal HospitalMagnesium [Mass/volume] in Serum or PlasmaOrdered By: Elva Daphnebari on 19-86-9181Onpehtcrz [Mass/Vol]1.6 mg/dLLow1.9-2.7FAdams County Regional Medical Centererum or plasma high density lipoprotein (HDL) cholesterol measurement Ordered By: Elva Daphnebari on 44-52-4911Ssgsovhylqs in HDL [Mass/Vol]26 mg/dL 23-92L[facility] HospitalComment on above:HDL CHOL ATP-III CLASSIFICATION Cardiovascular RiskHDL > or equal to 60 mg/dL LOWHDL < 40 mg/dL HIGHSerum or plasma total cholesterol/high density lipoprotein (HDL) cholesterol mass ratOrdered By: Elva Daphnebari on 55-57-9434Wxkyfgwbjlo.total/Cholesterol in HDL [Mass ratio]4.8 {ratio}<5.0[facility] HospitalThyrotropin [Units/volume] in Serum or PlasmaOrdered By: Elva Daphnebari on 55-93-0950IAX Qn 2.48 m[IU]/L0.45-5.33[facility] HospitalTriglyceride [Mass/volume] in Serum or PlasmaOrdered By: Priscillamarko Daphnebari on 43-30-7213Qipmtwrhxsau [Mass/Vol]198 mg/dLHigh0-149L[facility] HospitalComment on above: TRIG ATP III CLASSIFICATIONTRIG less than 150 mg/dL NormalTRIG 150-199 mg/dL Borderline highTRIG 200-500 mg/dL High TRIG greater than 500 mg/dL Very highStandard traceable to the Center for Disease Conrtrol and Prevention (CDC) test method.Activated partial thromboplastin time (aPTT) in platelet poor plasma by coagulation aOrdered By: Edgar Valenzuela on 66-47-1340fDJZ Coag (PPP) [Time] 29.3 s25.1-36.5FAshtabula County Medical CenterComment on above:A hematocrit value greater than 55% may lead to inaccurate results in coagulation testing. Patientshaving hematocrit values >55% require a special collection tube for coagulation studies. Please contact the laboratory at [phone] for redraw instructions.Basophils Auto (Bld) [#/Vol]Ordered By: Edgar Valenzuela on 05-16-2024 Basophils (Bld) [#/Vol]0.1 10*3/uL0.0-0.2FAshtabula County Medical Center Basophils/100 WBC Auto (Bld)Ordered By: Edgar Valenzuela on 71-10-3803Ianegssxb/100 WBC (Bld)0.9 %.[facility] HospitalCalcium [Mass/volume] in Serum or PlasmaOrdered By: Edgar Valenzuela on 72-98-9777Ptnhgav [Mass/Vol]10.5 mg/dLHigh 8.6-10.3FAshtabula County Medical CenterCarbon dioxide, total [Moles/volume] in Serum or PlasmaOrdered By: Edgar Valenzuela on 58-22-1063TN3 [Moles/Vol]25.0 mmol/L21.0-31.0[facility] HospitalChloride [Moles/volume] in Serum or PlasmaOrdered By: Edgar Valenzuela on 30-66-8455Styltmxn [Moles/Vol]102 mmol/L 98-107[facility] HospitalCreatine kinase [Enzymatic activity/volume] in Serum or PlasmaOrdered By: Edgar Valenzuela on 67-81-6396KI [Catalytic activity/Vol]45 U/E74-115XellqcrnxLancaster Municipal HospitalCreatinine [Mass/volume] in Serum or PlasmaOrdered By: Edgar Valenzuela on 09-12-2023 Creatinine [Mass/Vol]0.84 mg/dL0.60-1.20[facility] Eosinophils Auto (Bld) [#/Vol]Ordered By: Edgar Valenzuela on 64-24-5625Ezvtymnqtxj (Bld) [#/Vol]0.2 10*3/uL0.0-0.45[facility] Eosinophils/100 WBC Auto (Bld)Ordered By: Edgar Valenzuela on 09-12-2023 Eosinophils/100 WBC (Bld)1.7 %.[facility] HospitalErythrocyte distribution width Auto (RBC) [Ratio]Ordered By: Edgar Valenzuela on 09-12-2023 Erythrocyte distribution width (RBC) [Ratio]12.7 %11.9-15.3FAshtabula County Medical CenterGlucose [Mass/volume] in Serum or PlasmaOrdered By: Edgar Valenzuela on 77-46-6660Lpsfnkx [Mass/Vol]150 mg/sZGkdo73-359TruryxnqbLancaster Municipal HospitalComment on above:ADA recommended reference rangeRandom Glucose Reference Range is dependent on time and content of last meal. Glucose of more than 200 mg/dL in a nonstressed, ambulatory subject supports the diagnosisof Diabetes Mellitus.HbA1c HPLC (Bld) [Mass fraction]on 29-93-1333LjU6h (Bld) [Mass fraction]6.6 %[facility] HospitalHematocrit Auto (Bld) [Volume fraction]Ordered By: Edgar Valenzuela on 56-80-9032Qwqkduunan (Bld) [Volume fraction]49.3 %High34.0-46.4FAshtabula County Medical CenterHemoglobin [Mass/volume] in BloodOrdered By: Edgar Valenzuela on 51-51-3966Xizvfkoory (Bld) [Mass/Vol]16.9 g/uSLqzm41.8-15.4FAshtabula County Medical CenterINR in Platelet poor plasma by Coagulation assayOrdered By: Edagr Valenzuela on 51-89-0949QJZ Coag (PPP) [Relative time]1.1 {INR}[facility] HospitalComment on above:INR Therapeutic Range A) Pre- [...] by Automated counOrdered By: Edgar Valenzuela on 09-01-3536PZZ corrected for nucl RBC Auto (Bld) [#/Vol]9.8 10*3/uL3.8-11.6FAshtabula County Medical Center Lymphocytes Auto (Bld) [#/Vol]Ordered By: Edgar Valenzuela on 10-83-5321Lmhrkewxuqv (Bld) [#/Vol]2.0 10*3/uL1.00-4.8[facility] Lymphocytes/100 WBC Auto (Bld)Ordered By: Edgar Valenzuela on 09-12-2023 Lymphocytes/100 WBC (Bld)20.2 %.[facility] Auto (RBC) [Entitic mass]Ordered By: Edgar Valenzuela on 54-23-4447MGQ (RBC) [Entitic mass] 32.7 pg24.7-34.3FParkwood HospitalHC Auto (RBC) [Mass/Vol] Ordered By: Edgar Valenzuela on 95-06-3245XXEL (RBC) [Mass/Vol]34.2 g/dL32.0-35.0 [facility] HospitalMCV Auto (RBC) [Entitic vol]Ordered By: Edgar Valenzuela on 74-87-5804HKR (RBC) [Entitic vol]95.6 gK18-375DbqkmjvdoLancaster Municipal HospitalMonocyte distribution width [Entitic volume] in Blood by Automated Ordered By: Edgar Valenzuela on 35-86-4038Vhnbwcgg distribution width Auto (Bld) [Entitic vol]19.90 %0.00-20.00[facility] HospitalMonocytes Auto (Bld) [#/Vol]Ordered By: Edgar Valenzuela on 22-07-6312Xxtfnccpk (Bld) [#/Vol]0.6 10*3/uL0.0-0.8[facility] HospitalMonocytes/100 WBC Auto (Bld) Ordered By: Edgar Valenzuela on 18-40-3464Joigcpzau/100 WBC (Bld)5.9 %.[facility] HospitalNatriuretic peptide B [Mass/Vol]Ordered By: Edgar Valenzuela on 54-03-3979Pywuheuuxkp peptide B (Bld) [Mass/Vol]112.0 pg/mLHigh5-100 [facility] HospitalNeutrophils Auto (Bld) [#/Vol]Ordered By: Edgar Valenzuela on 64-99-8774Ndqhddmszuz (Bld) [#/Vol]7.0 10*3/uL1.8-7.7FAshtabula County Medical CenterNeutrophils/100 WBC Auto (Bld)Ordered By: Edgar Valenzuela on 54-00-8174Nlydnczvufb/100 WBC (Bld)71.3 %.[facility] HospitalNo Panel InformationOrdered By: Edgar Valenzuela on 33-23-2191Yzsdcbcjl GFR (CKD-EPI) > 60.0 mL/MinLancaster Municipal HospitalPharmacy Creatinine Clearance (Chem73.11[facility] HospitalNo Panel Informationon 09-12-2023 Bedside Ptjwyjl567CadcisutpLancaster Municipal HospitalNucleated erythrocytes [Presence] in Blood by Automated countOrdered By: Edgar Valenzuela on 09-12-2023 Nucleated RBC Auto Ql (Bld)0.2 /100{WBC}0-0.5FAshtabula County Medical Center Platelet mean volume Auto (Bld) [Entitic vol]Ordered By: Edgar Valenzuela on 35-40-1516Zsfjuxas mean volume (Bld) [Entitic vol]9.5 fL6.3-10.7FAshtabula County Medical CenterPlatelets Auto (Bld) [#/Vol]Ordered By: Edgar Valenzuela on 45-52-6256Jiyjbxhhi (Bld) [#/Vol]195 10*3/nR744-899LiwvtsavdLancaster Municipal HospitalPotassium [Moles/volume] in Serum or PlasmaOrdered By: Edgar Valenzuela on 47-17-7581Lapknmxkv [Moles/Vol]4.0 mmol/L3.5-5.1FAshtabula County Medical CenterProthrombin time (PT)Ordered By: Edgar Valenzuela on 65-58-0303ZX Coag (PPP) [Time]12.7 s9.0-12.9[facility] HospitalComment on above:A hematocrit value greater than 55% may lead to inaccurate results in coagulation testing. Patientshaving hematocrit values >55% require a special collection tube for coagulation studies. Please contact the laboratory at [phone] for redraw instructions.RBC Auto (Bld) [#/Vol]Ordered By: Edgar Valenzuela on 39-91-0248BYT (Bld) [#/Vol]5.16 10*6/uLHigh3.60-5.00McKitrick Hospitalerum or plasma anion gap determinationOrdered By: Edgar Valenzuela on 03-87-0866Ynvso gap [Moles/Vol]15.0 mmol/L6.0-15.0McKitrick Hospitalodium [Moles/volume] in Serum or PlasmaOrdered By: Edgar Valenzuela on 28-85-9276Dedmie [Moles/Vol]138 mmol/N113-795MyeklnobnLancaster Municipal Hospital Troponin I.cardiac [Mass/volume] in Serum or Plasma by Detection limit <= 0.01 ng/Ordered By: Edgar Valenzuela on 24-04-9565Aygdxrxy I.cardiac DL <= 0.01 ng/mL [Mass/Vol]7.3 pg/mL0.0-15.0[facility] HospitalUrea nitrogen [Mass/volume] in Serum or PlasmaOrdered By: Edgar Valenzuela on 22-28-3990Zvyc nitrogen [Mass/Vol]11 mg/dL7-25L[facility] HospitalWBC Auto (Bld) [#/Vol]Ordered By: Edgar Valenzuela on 70-34-4632PCU (Bld) [#/Vol]9.8 10*3/uL 3.8-11.6FAshtabula County Medical CenterAlanine aminotransferase [Enzymatic activity/volume] in Serum or PlasmaOrdered By: Angelique Russell on 41-14-4785NEK [Catalytic activity/Vol]19 U/L7-52[facility] HospitalAlbumin [Mass/volume] in Serum or Plasma by Bromocresol green (BCG) dye binding metho Ordered By: Angelique Russell on 89-09-6802Biaegdg BCG dye [Mass/Vol]4.3 g/dL3.5-5.7 [facility] HospitalAlkaline phosphatase [Enzymatic activity/volume] in Serum or PlasmaOrdered By: Barbera Yvonne on 25-80-0302ZOM [Catalytic activity/Vol]81 U/I62-044VuswlmiiuLancaster Municipal HospitalAspartate aminotransferase [Enzymatic activity/volume] in Serum or PlasmaOrdered By: Tondra Leonardous on 17-93-0932KYN [Catalytic activity/Vol]26 U/J73-56XexcahfxuLancaster Municipal HospitalBilirubin.total [Mass/volume] in Serum or PlasmaOrdered By: Tondra Yvonne on 91-34-8856Maeywsfrv [Mass/Vol]0.7 mg/dL0.3-1.0[facility] HospitalCalcium [Mass/volume] in Serum or PlasmaOrdered By: Tondra Mapus on 21-42-2906Hmnkyws [Mass/Vol]10.2 mg/dL8.6-10.3FAshtabula County Medical CenterCarbon dioxide, total [Moles/volume] in Serum or PlasmaOrdered By: Angelique Russell on 46-66-4838JY8 [Moles/Vol]28.6 mmol/L21.0-31.0[facility] HospitalChloride [Moles/volume] in Serum or PlasmaOrdered By: Barbera Leonardous on 88-75-2664Rglcsbva [Moles/Vol]102 mmol/A04-053WrfzyocqcLancaster Municipal HospitalCholesterol [Mass/volume] in Serum or PlasmaOrdered By: Tona Leonardous on 60-43-6106Wnxzmvrwspm [Mass/Vol]143 mg/iT178-352EyqfrarwnLancaster Municipal HospitalComment on above:Chol less than 200 mg/dl low riskChol 201-239 mg/dl borderline riskChol 240 mg/dl and greater high riskCholesterol in LDL Calc [Mass/Vol]Ordered By: Angelique Russell on 08-70-5536Gxcaimcency in LDL [Mass/Vol]62 mg/dL0-100[facility] HospitalComment on above:LDL ATP III CLASSIFICATIONLDL less than 100 mg/dL OptimalLDL 100-129 mg/dL Near or above tciozjxSPV564-727 mg/dL Borderline highLDL 160-189 mg/dL HighLDL greater than 189 mg/dL Very highCholesterol in VLDL Calc [Mass/Vol]Ordered By: Angelique Russell on 36-02-9410Fmifteeyiew in VLDL [Mass/Vol]51 mg/dLLancaster Municipal HospitalCreatinine [Mass/volume] in Serum or PlasmaOrdered By: Barbera Yvonne on 21-19-4084Lumxfbrwrk [Mass/Vol]0.91 mg/dL0.60-1.20[facility] HospitalCreatinine [Mass/volume] in UrineOrdered By: Angelique Russell on 09-05-2023 Creatinine (U) [Mass/Vol]118.0 mg/dLLancaster Municipal HospitalComment on above:No reference range establishedGlobulin Calc (S) [Mass/Vol]Ordered By: Angelique Russell on 74-45-3651Yuqumrhc (S) [Mass/Vol]2.7 g/dLLancaster Municipal HospitalGlucose [Mass/volume] in Serum or PlasmaOrdered By: Angelique Russell on 32-91-5914Gpdmfbs [Mass/Vol]197 mg/wJItlf11-627WkjouxqskLancaster Municipal HospitalComment on above:ADA recommended reference rangeRandom Glucose Reference Range is dependent on time and content of last meal. Glucose of more than 200 mg/dL in a nonstressed, ambulatory subject supports the diagnosisof Diabetes Mellitus.Microalbumin [Mass/volume] in UrineOrdered By: Angelique Russell on 02-20-9280Oamkwzc DL <= 20 mg/L (U) [Mass/Vol]18.4 mg/dLHigh0.0-1.8[facility] HospitalNo Panel InformationOrdered By: Angelique Russell on 13-55-6320Ffyxcyjby GFR (CKD-EPI)> 60.0 mL/MinLancaster Municipal Hospital [facility]acy Creatinine Clearance (ChemN/[facility] SystemPotassium [Moles/volume] in Serum or PlasmaOrdered By: Angelique Russell on 09-05-2023 Potassium [Moles/Vol]4.2 mmol/L3.5-5.1FAshtabula County Medical CenterProtein [Mass/volume] in Serum or PlasmaOrdered By: Angelique Russell on 31-85-4589Meursin [Mass/Vol]7.0 g/dL6.4-8.9McKitrick Hospitalerum or plasma albumin/globulin mass ratioOrdered By: Angelique Russell on 09-05-2023 Albumin/Globulin [Mass ratio]1.6 {ratio}McKitrick Hospitalerum or plasma anion gap determinationOrdered By: Angelique Russell on 77-82-6991Tyurr gap [Moles/Vol]13.6 mmol/L6.0-15.0McKitrick Hospitalerum or plasma high density lipoprotein (HDL) cholesterol measurementOrdered By: Angelique Russell on 61-19-7282Cdlawzvtxhf in HDL [Mass/Vol]30 mg/zI43-48JadbzyocuLancaster Municipal HospitalComment on above:HDL CHOL ATP-III CLASSIFICATION Cardiovascular RiskHDL > or equal to 60 mg/dL LOWHDL < 40 mg/dL HIGHSerum or plasma total cholesterol/high density lipoprotein (HDL) cholesterol mass ratOrdered By: Angelique Russell on 41-85-1379Uyveesxvyeg.total/Cholesterol in HDL [Mass ratio]4.8 {ratio}<5.0McKitrick Hospitalodium [Moles/volume] in Serum or PlasmaOrdered By: Angelique Russell on 97-76-7134Zqosjr [Moles/Vol]140 mmol/Q928-315 [facility] HospitalTriglyceride [Mass/volume] in Serum or Plasma Ordered By: Angelique Russell on 70-91-8419Jybxesvaspnc [Mass/Vol]256 mg/dLHigh0-149 [facility] HospitalComment on above:TRIG ATP III CLASSIFICATIONTRIG less than 150 mg/dL NormalTRIG 150-199 mg/dL Borderline highTRIG 200-500 mg/dL High TRIG greater than 500 mg/dL Very highStandard traceable to the Center for Disease Conrtrol and Prevention (CDC) test method. Urea nitrogen [Mass/volume] in Serum or PlasmaOrdered By: Angelique Russell on 91-48-9214Ggws nitrogen [Mass/Vol]12 mg/dL7-25[facility] Urine microalbumin/creatinine mass ratioOrdered By: Angelique Russell on 09-05-2023 Albumin/Creatinine DL <= 20 mg/L (U) [Mass ratio]155.0 mg/gHigh0.0-30.0[facility] HospitalComment on above:30-300 mg/g indicates an increased risk for diabetic nephropathy. Greater than 300 mg/g is consistent with clinical nephropathy. (Am. J. Kidney Disease 1995, 25:107)Vitamin B12 ser/plasOrdered By: Angelique Russell on 41-63-7186Gfriinfrx (Vitamin B12) [Mass/Vol]255 pg/gE153-282 [facility] HospitalLaboratory - Hematology and Cell countson 56-41-5392RnY4g (Bld) [Mass fraction]7.2 %[facility] HospitalNo Panel Informationon 78-93-6003Jvdscan Cpitsrk741UjiolyxpuLancaster Municipal HospitalA1C HEMOGLOBINon 87-61-0198WjN0p (Bld) [Mass fraction]6.3 %TopTenREVIEWS Other Glucose - FINGER STICKon 21-92-6504Gyprdvw [Mass/Vol] 196 mg/dLNonortheast missouri rural health [facility] Bundlr Other HbA1c (Bld) [Mass fraction]on 75-00-3308D8T HEMOGLOBIN [employer]RE[employer]IEWS Other a1c HEMOGLOBINon 78-96-7594AkO7t (Bld) [Mass fraction] 6.6 %[employer]REVIEWS Other Glucose - FINGER STICKon 0400Vdaabol [Mass/Vol] 128 mg/dLNonortheast missouri rural health network [employer]lr Other HbA1c (Bld) [Mass fraction]on 29-81-8890E2H HEMOGLOBIN [employer]IE[employer] Other A1C HEMOGLOBINon 33-17-5394EbS6l (Bld) [Mass fraction] 7.1 %[employer]RE[employer]IEWS Other Glucose - FINGER STICKon 29-83-6740Iturufq [Mass/Vol] 219 mg/dLNonortheast missouri rural health network [employer]lr Other HbA1c (Bld) [Mass fraction]on 71-57-0100K5P HEMOGLOBIN [employer]IE[employer] Other a1c HEMOGLOBINon 32-72-5035AwZ6z (Bld) [Mass fraction] 7.7 %[employer]IE[employer] Other Glucose - FINGER STICKon 04-69-8094Yyalpjm [Mass/Vol] 242 mg/dLNoArmut Bundlr Other HbA1c (Bld) [Mass fraction]on 55-95-2766R3U HEMOGLOBIN [employer]RE[employer]IEWS Other Consultation Noteon 15-56-1327Fdegcsdqtcjf Note [id number]#1.00CD:ConstantinoLevind[facility] and HospitalInsurance Correspondence Officeon 90-52-3465Rxvyaviqb Correspondence [id number]#1.00CD:[address] [place], [place] [address]Urine culture routineOrdered By: Milo Watters on 12-19-2021 Bacteria identified Cx Nom (U)Zeny albicansLancaster Municipal Hospital Albumin [Mass/volume] in Serum or PlasmaOrdered By: Milo Watters on 12-17-2021 Albumin [Mass/Vol]3.4 g/dL3.2-5.5FAshtabula County Medical CenterAutomated erythrocytes count in urine sediment (number/area)Ordered By: Milo Watters on 87-57-7515IEY Auto (Urine sed) [#/Area]3-4 [HPF]0-4FAshtabula County Medical CenterAutomated leukocytes count in urine sediment (number/area)Ordered By: Milo Watters on 66-40-9961WDJ Auto (Urine sed) [#/Area]50-100 [HPF]0-4FAshtabula County Medical CenterAutomated urine hyaline casts count (number/volume) Ordered By: Milo Watters on 47-74-0417Cgucqse casts Auto (U) [#/Vol]None seen [LPF]0-1FAshtabula County Medical CenterBasophils Auto (Bld) [#/Vol]Ordered By: Milo Watters on 43-64-9250Urlxqkkrt (Bld) [#/Vol]0.1 10*3/uL0.0-0.2FAshtabula County Medical CenterBasophils/100 WBC Auto (Bld)Ordered By: Milo Watters on 59-83-1918Crddzlwui/100 WBC (Bld)0.5 %.[facility] Bilirubin Test strip Ql (U)Ordered By: Milo Watters on 16-01-9961Cfibgvbfg Ql (U)NegativeNegativeLancaster Municipal HospitalBlood hemoglobin measurement (mass/volume)Ordered By: Milo Watters on 51-97-2355Mltfiojibh (Bld) [Mass/Vol] 16.1 g/dL11.8-15.4FAshtabula County Medical CenterBlood leukocytes automated count (number/volume)Ordered By: Milo Watters on 61-28-7615MQM (Bld) [#/Vol] 10.7 10*3/uL4.5-11.0[facility] HospitalCasts typing in urine sediment by light microscopyOrdered By: Milo Watters on 14-50-3428Rxpjh LM Nom (Urine sed)None seen [LPF]None SeenLancaster Municipal HospitalColor Auto (U)Ordered By: Milo Watters on 32-72-2344Pibuo (U)YellowYellowLancaster Municipal HospitalCreatinine and Glomerular filtration rate.predicted panel (S/P/Bld)Ordered By: Milo Watters on 57-34-5192Pownxhlmdp [Mass/Vol]0.89 mg/dL 0.44-1.03[facility] HospitalEosinophils Auto (Bld) [#/Vol]Ordered By: Milo Watters on 31-95-3073Ndwxucltpqf (Bld) [#/Vol]0.1 10*3/uL0.0-0.45 [facility] HospitalEosinophils/100 WBC Auto (Bld)Ordered By: Milo Watters on 91-00-2997Qvcsdhnrnon/100 WBC (Bld)1.0 %.[facility] HospitalErythrocyte distribution width Auto (RBC) [Ratio]Ordered By: Milo Watters on 25-15-7673Anzvzktredw distribution width (RBC) [Ratio]13.1 % 11.9-15.3FAshtabula County Medical CenterEstimated glomerular filtration rate (GFR) non- AmericanOrdered By: Milo Watters on 75-51-1941UCB/1.73 sq M.predicted among non-blacks MDRD (S/P/Bld) [Vol rate/Area]> 60 mL/MinLancaster Municipal HospitalGlobulin Calc (S) [Mass/Vol]Ordered By: Milo Watters on 73-75-1819Kqkxwnaf (S) [Mass/Vol]3.9 g/dLLancaster Municipal Hospital Hematocrit Auto (Bld) [Volume fraction]Ordered By: Milo Watters on 12-17-2021 Hematocrit (Bld) [Volume fraction]48.5 %34.0-46.4FAshtabula County Medical CenterKetones Auto test strip (U) [Mass/Vol]Ordered By: Milo Watters on 93-55-7158Icfzhlp (U) [Mass/Vol]NegativeNegativeLancaster Municipal HospitalLaboratory - Hematology and Cell countsOrdered By: Milo Watters on 72-31-2306Onwstdavn RBC/100 WBC (Bld) [Ratio]0.1 %0-0.5FAshtabula County Medical CenterLymphocytes Auto (Bld) [#/Vol]Ordered By: Milo Watters on 79-35-8124Entlczhhqlp (Bld) [#/Vol]1.5 10*3/uL1.00-4.8[facility] HospitalLymphocytes/100 WBC Auto (Bld)Ordered By: Milo Watters on 12-17-2021 Lymphocytes/100 WBC (Bld)14.2 %.[facility] HospitalH Auto (RBC) [Entitic mass]Ordered By: Milo Watters on 24-88-6216BTN (RBC) [Entitic mass] 31.4 pg24.7-34.3FAshtabula County Medical CenterMCHC Auto (RBC) [Mass/Vol] Ordered By: Milo Watters on 84-37-5752NNBT (RBC) [Mass/Vol]33.2 g/dL32.0-35.0 [facility] HospitalMCV Auto (RBC) [Entitic vol]Ordered By: Milo Watters on 02-13-5126CNW (RBC) [Entitic vol]94.6 uV27-835KigpdybrzLancaster Municipal HospitalMonocytes Auto (Bld) [#/Vol]Ordered By: Milo Watters on 72-51-4970Fzkhkodif (Bld) [#/Vol]0.8 10*3/uL0.0-0.8[facility] HospitalMonocytes/100 WBC Auto (Bld)Ordered By: Milo Watters on 12-17-2021 Monocytes/100 WBC (Bld)7.5 %.[facility] HospitalNeutrophils Auto (Bld) [#/Vol]Ordered By: Milo Watters on 52-85-7167Xwebthlafqg (Bld) [#/Vol]8.2 10*3/uL1.8-7.7FAshtabula County Medical CenterNeutrophils/100 WBC Auto (Bld) Ordered By: Milo Watters on 87-91-5562Vizejytfmny/100 WBC (Bld)76.8 %.[facility] HospitalNitrite Test strip Ql (U)Ordered By: Milo Watters on 84-08-8876Qznhkjs Ql (U)NegativeNegativeL[facility]aster Municipal HospitalNo Panel InformationOrdered By: Milo Watters on 20-43-4457Svvcbjbqx GFR ()> 60 mL/MinLancaster Municipal HospitalComment on above:GFR estimated reference range: According to KDOQI guidelines, <60 ml/min/1.73m2 is sufficient todiagnose a patient with chronic kidney disease.Pharmacy Creatinine Clearance (Chem70.55[facility] HospitalPlatelet mean volume Auto (Bld) [Entitic vol]Ordered By: Milo Watters on 43-62-7538Jmhzfgiw mean volume (Bld) [Entitic vol]8.7 fL6.3-10.7FAshtabula County Medical CenterPlatelets Auto (Bld) [#/Vol]Ordered By: Milo Watters on 47-02-9970Fjtgkcaui (Bld) [#/Vol]239 10*3/hY927-988ZzywrczkcLancaster Municipal HospitalProtein Auto test strip (U) [Mass/Vol]Ordered By: Milo Watters on 01-76-6155Mgjspog (U) [Mass/Vol]Trace mg/dLNegativeLancaster Municipal HospitalProtein [Mass/volume] in Serum or PlasmaOrdered By: Milo Watters on 24-58-2515Voyexcq [Mass/Vol]7.3 g/dL6.1-7.9 [facility] HospitalRBC Auto (Bld) [#/Vol]Ordered By: Milo Watters on 74-54-3936FND (Bld) [#/Vol]5.13 10*6/uL3.60-5.00McKitrick Hospitalerum or plasma alanine aminotransferase measurement without P-5'-P (enzymatic activiOrdered By: Milo Watters on 45-22-4206SOI No additional P-5'-P [Catalytic activity/Vol]38 U/T90-43DuoogdubgMcKitrick Hospitalerum or plasma albumin/globulin mass ratioOrdered By: Milo Watters on 12-17-2021 Albumin/Globulin [Mass ratio]0.9 {ratio}[facility] Hospitalerum or plasma alkaline phosphatase measurement (enzymatic activity/volume)Ordered By: Milo Watters on 54-15-7945JAN [Catalytic activity/Vol]109 U/Q00-60DfoeminrcMcKitrick Hospitalerum or plasma aspartate aminotransferase measurement (enzymatic activity/volume)Ordered By: Milo Watters on 03-78-3153BKQ [Catalytic activity/Vol]43 U/T78-04ZzuybauceMcKitrick Hospitalerum or plasma calcium measurement (mass/volume)Ordered By: Milo Watters on 76-70-2463Yligwgj [Mass/Vol]10.0 mg/dL8.2-10.2FAdams County Regional Medical Centererum or plasma chloride measurement (moles/volume)Ordered By: Milo Watters on 12-17-2021 Chloride [Moles/Vol]102 mmol/U74-890FkndxkskfMcKitrick Hospitalerum or plasma glucose measurement (mass/volume)Ordered By: Milo Watters on 12-17-2021 Glucose [Mass/Vol]231 mg/gD95-057CapefvyrfLancaster Municipal HospitalComment on above:ADA recommended reference range Random Glucose Reference Range is dependent on time and content of last meal. Glucose of more than 200 mg/dL in a nonstressed, ambulatory subject supports the diagnosis of Diabetes Mellitus.Serum or plasma potassium measurement (moles/volume)Ordered By: OSORIO WHITE on 83-55-9724Nqvccitcj [Moles/Vol]3.6 mmol/L3.5-5.1FAdams County Regional Medical Centererum or plasma sodium measurement (moles/volume)Ordered By: Milo Watters on 89-40-8138Doisug [Moles/Vol]137 mmol/O822-557HdkxtbycwMcKitrick Hospitalerum or plasma total bilirubin measurement (mass/volume)Ordered By: Milo Watters on 43-16-4192Ocxtkrgrb [Mass/Vol]0.8 mg/dL0.3-1.2FAdams County Regional Medical Centererum or plasma total carbon dioxide measurement (moles/volume)Ordered By: Milo Watters on 27-23-1776SB2 [Moles/Vol]24.6 mmol/L22.0-30.0[facility] Serum or plasma urea nitrogen measurement (mass/volume)Ordered By: Milo Watters on 64-82-2777Rgik nitrogen [Mass/Vol]8 mg/dL9-23McKitrick Hospitalpecific gravity Auto test strip (U) [Rel density]Ordered By: Milo Watters on 53-21-6754Hxdfruql gravity (U) [Rel density]1.0301.001-1.030McKitrick Hospitalquamous epithelial cells detection in urine sediment by light microscopyOrdered By: Milo Watters on 10-78-9707Deaogejucy cells.squamous LM Ql (Urine sed)None seen [HPF]0-2FAshtabula County Medical CenterUrine bacteria detection by automated methodOrdered By: Milo Watters on 12-17-2021 Bacteria Auto Ql (U)RareNone [facility] HospitalUrine clarity by refractometry automatedOrdered By: Milo Watters on 70-84-4142Jsankmh Refractometry automated (U)ClearClearFAshtabula County Medical CenterUrine glucose measurement by automated test strip (mass/volume)Ordered By: Milo Watters on 86-17-5213Gwhwnul Auto test strip (U) [Mass/Vol]>=1000 mg/dLChillicothe HospitalUrine hemoglobin detection by automated test stripOrdered By: Milo Watters on 14-63-8071Bfmxnbzbbt Auto test strip Ql (U)1+ NegativeLancaster Municipal HospitalUrine leukocyte esterase detection by automated test stripOrdered By: Milo Watters on 14-12-9030Mldresisb esterase Auto test strip Ql (U)3+NegativeLancaster Municipal HospitalUrobilinogen Auto test strip (U) [Mass/Vol]Ordered By: Milo Watters on 12-17-2021 Urobilinogen (U) [Mass/Vol]Normal mg/dLSouthwest General Health Center Yeast detection in urine sediment by light microscopyOrdered By: Milo Watters on 32-72-1982Wjpmv LM Ql (Urine sed)3+ [HPF]None [facility] HospitalpH Auto test strip (U)Ordered By: Milo Watters on 73-00-9298oV (U)6.0 [pH]5.0-9.0[facility] HospitalBacterial blood cultureOrdered By: Arleen Stephen on 85-33-3333Bywkawtt identified Cx Nom (Bld)NO GROWTH 5 DAYS [facility] HospitalBasophils Auto (Bld) [#/Vol]Ordered By: Walter Montgomery on 60-04-5348Cqufrskmm (Bld) [#/Vol]0.0 10*3/uL0.0-0.2FAshtabula County Medical CenterBasophils/100 WBC Auto (Bld)Ordered By: Walter Montgomery on 08-17-2022 Basophils/100 WBC (Bld)0.1 %.[facility] HospitalBlood hemoglobin measurement (mass/volume)Ordered By: Walter Montgomery on 04-17-5584Nsfmpdrrkj (Bld) [Mass/Vol]14.2 g/dL11.8-15.4FAshtabula County Medical CenterBlood leukocytes automated count (number/volume)Ordered By: Walter Montgomery on 59-58-6495PQY (Bld) [#/Vol]9.4 10*3/uL4.5-11.0[facility] HospitalConsultation Noteon 86-41-9404Fvlczhvsqtwh [id number]#1.00CD:127 [facility] SouthCreatinine and Glomerular filtration rate.predicted panel (S/P/Bld)Ordered By: Walter Montgomery on 32-11-8017Szsskfdrfv [Mass/Vol]0.75 mg/dL0.44-1.03[facility] HospitalDirect bilirubin measurementOrdered By: Walter Montgomery on 56-37-1820Qblikgeee.direct [Mass/Vol]0.2 mg/dL0.0-0.4FAshtabula County Medical CenterEosinophils Auto (Bld) [#/Vol] Ordered By: Walter Montgomery on 53-97-7052Fnvskxycndn (Bld) [#/Vol]0.0 10*3/uL 0.0-0.45[facility] HospitalEosinophils/100 WBC Auto (Bld)Ordered By: Walter Montgomery on 69-82-1501Xgbzaussapk/100 WBC (Bld)0.0 %.[facility] HospitalErythrocyte distribution width Auto (RBC) [Ratio]Ordered By: Walter Montgomery on 95-70-6121Libklrlisor distribution width (RBC) [Ratio]12.9 %11.9-15.3 [facility] HospitalEstimated glomerular filtration rate (GFR) non- AmericanOrdered By: Walter Montgomery on 28-58-4488SBE/1.73 sq M.predicted among non-blacks MDRD (S/P/Bld) [Vol rate/Area]> 60 mL/MinLancaster Municipal HospitalGlucose Glucometer (BldC) [Mass/Vol]Ordered By: Wilmer Vance on 77-94-1011Cgstxqd [Mass/Vol]230 mg/dLLancaster Municipal HospitalComment on above:Random Glucose Reference Range is dependent on time and content of last meal. Glucose of more than 200 mg/dL in a nonstressed, ambulatory subject supports the diagnosis of Diabetes Mellitus.Hematocrit Auto (Bld) [Volume fraction]Ordered By: Walter Montgomery on 78-07-6393Vtnjmbgqys (Bld) [Volume fraction] 41.9 %34.0-46.4FAshtabula County Medical CenterLaboratory - Hematology and Cell countsOrdered By: Walter Montgomery on 10-95-2339Kntwwnche RBC/100 WBC (Bld) [Ratio] 0.0 %0-0.5FAshtabula County Medical CenterLymphocytes Auto (Bld) [#/Vol]Ordered By: Walter Montgomery on 75-83-1557Pqwnuajbfaf (Bld) [#/Vol]0.7 10*3/uL1.00-4.8 [facility] HospitalLymphocytes/100 WBC Auto (Bld)Ordered By: Walter Montgomery on 45-87-2945Gbkmmmhwtdc/100 WBC (Bld)7.7 %.[facility] Auto (RBC) [Entitic mass]Ordered By: Walter Montgomery on 70-56-1953IBL (RBC) [Entitic mass]32.2 pg24.7-34.3FParkwood HospitalHC Auto (RBC) [Mass/Vol]Ordered By: Walter Montgomery on 62-68-5119KKEP (RBC) [Mass/Vol]33.9 g/dL32.0-35.0[facility] HospitalMCV Auto (RBC) [Entitic vol] Ordered By: Walter Montgomery on 07-28-9248BUU (RBC) [Entitic vol]95.1 dJ25-312 [facility] HospitalMonocytes Auto (Bld) [#/Vol]Ordered By: Walter Montgomery on 51-79-6351Kylwpfpyx (Bld) [#/Vol]0.2 10*3/uL0.0-0.8[facility] HospitalMonocytes/100 WBC Auto (Bld)Ordered By: Walter Montgomery on 12-13-2021 Monocytes/100 WBC (Bld)1.8 %.[facility] HospitalNeutrophils Auto (Bld) [#/Vol]Ordered By: Walter Montgomery on 96-46-0827Jviiewocmtv (Bld) [#/Vol]8.5 10*3/uL1.8-7.7FAshtabula County Medical CenterNeutrophils/100 WBC Auto (Bld) Ordered By: Walter Montgomery on 74-74-0336Apfpxugfwdl/100 WBC (Bld)90.4 %.[facility] HospitalNo Panel InformationOrdered By: Walter Montgomery on 12-13-2021 Estimated GFR ()> 60 mL/MinL[facility] Hospital Comment on above:GFR estimated reference range: According to KDOQI guidelines, <60 ml/min/1.73m2 is sufficient todiagnose a patient with chronic kidney disease.Pharmacy Creatinine Clearance (Chem84.79[facility] HospitalPlatelet mean volume Auto (Bld) [Entitic vol]Ordered By: Walter Montgomery on 33-69-9359Mqblnhxj mean volume (Bld) [Entitic vol]9.3 fL6.3-10.7FAshtabula County Medical CenterPlatelets Auto (Bld) [#/Vol]Ordered By: Walter Montgomery on 19-65-9107Rvclqcrsb (Bld) [#/Vol]178 10*3/yW113-263CidhwgvrrLancaster Municipal HospitalRBC Auto (Bld) [#/Vol]Ordered By: Walter Montgomery on 45-29-6637MRE (Bld) [#/Vol]4.41 10*6/uL3.60-5.00McKitrick Hospitalerum or plasma chloride measurement (moles/volume)Ordered By: Walter Montgomery on 11-69-0160Rrgdvdzh [Moles/Vol]105 mmol/B30-172YkvsfirhuMcKitrick Hospitalerum or plasma non-glucuronidated bilirubin measurement (mass/volume)Ordered By: Walter Montgomery on 93-38-5687Oupleixan.indirect [Mass/Vol]0.5 mg/dLMcKitrick Hospitalerum or plasma potassium measurement (moles/volume)Ordered By: Walter Montgomery on 35-30-1066Hrfqkkfvx [Moles/Vol]4.4 mmol/L3.5-5.1FAdams County Regional Medical Centererum or plasma sodium measurement (moles/volume)Ordered By: Walter Montgomery on 01-29-9464Smhxac [Moles/Vol]137 mmol/P125-734GclwyuokfMcKitrick Hospitalerum or plasma total bilirubin measurement (mass/volume)Ordered By: Walter Montgomery on 80-75-6161Nfelgaqnn [Mass/Vol]0.7 mg/dL0.3-1.2FAdams County Regional Medical Centererum or plasma total carbon dioxide measurement (moles/volume)Ordered By: Walter Montgomery on 17-44-2716TZ1 [Moles/Vol]24.6 mmol/L 22.0-30.0McKitrick Hospitalerum or plasma urea nitrogen measurement (mass/volume)Ordered By: Walter Montgomery on 00-83-8937Lsoa nitrogen [Mass/Vol]12 mg/dL9-23[facility] HospitalActivated partial thromboplastin time (aPTT) in platelet poor plasma by coagulation aOrdered By: Walter Montgomery on 43-44-3192fKMY Coag (PPP) [Time]30.0 s25.1-36.5FAshtabula County Medical CenterLaboratory - CoagulationOrdered By: Walter Montgomery on 05-80-5728DH Coag (PPP) [Time]14.1 s9.0-12.9[facility] HospitalPlatelet poor plasma international normalized ratio (INR) by coagulation assay (relatOrdered By: Walter Montgomery on 41-60-8615NFB Coag (PPP) [Relative time]1.3 {INR}[facility] HospitalComment on above:INR Therapeutic Range A) Pre- [...] measurement (enzymatic activity/volume)Ordered By: Walter Montgomery on 09-17-8205MNK [Catalytic activity/Vol]92 U/L74-32ZvttrwpwzMcKitrick Hospitalerum or plasma aspartate aminotransferase measurement (enzymatic activity/volume)Ordered By: Walter Montgomery on 67-01-5615KHJ [Catalytic activity/Vol]22 U/R64-65RklquznudLancaster Municipal HospitalAlbumin [Mass/volume] in Serum or PlasmaOrdered By: Arleen Stephen on 08-15-1188Ghiezmv [Mass/Vol]2.9 g/dL3.2-5.5FAshtabula County Medical CenterGlobulin Calc (S) [Mass/Vol]Ordered By: Arleen Stephen on 87-36-9718Amrcgdee (S) [Mass/Vol]3.0 g/dLLancaster Municipal HospitalNo Panel InformationOrdered By: Arleen Stephen on 10-53-6248Uoqigcn Glucose CommentGlu2: cleaned meterLancaster Municipal HospitalProtein [Mass/volume] in Serum or PlasmaOrdered By: Arleen Stephen on 27-62-9121Nxapnzx [Mass/Vol]5.9 g/dL6.1-7.9McKitrick Hospitalerum or plasma alanine aminotransferase measurement without P-5'-P (enzymatic activiOrdered By: Arleen Stephen on 33-29-7604SPD No additional P-5'-P [Catalytic activity/Vol]16 U/D72-68RgtrzdbcgMcKitrick Hospitalerum or plasma albumin/globulin mass ratioOrdered By: Arleen Stephen on 77-78-4607Noujbbd/Globulin [Mass ratio]1.0 {ratio}McKitrick Hospitalerum or plasma calcium measurement (mass/volume)Ordered By: Arleen Stephen on 49-26-0936Pwjkvjo [Mass/Vol]9.2 mg/dL 8.2-10.2FAdams County Regional Medical Centererum or plasma glucose measurement (mass/volume)Ordered By: Arleen Stephen on 70-47-0875Rsnqdmu [Mass/Vol]204 mg/dL 70-100[facility] HospitalComment on above:ADA recommended reference range Random Glucose Reference Range is dependent on time and content of last meal. Glucose of more than 200 mg/dL in a nonstressed, ambulatory subject supports the diagnosis of Diabetes Mellitus.Urine culture routineOrdered By: Tray Rosey on 89-08-1115Drzfjwul identified Cx Nom (U)Escherichia coliLancaster Municipal HospitalAutomated erythrocytes count in urine sediment (number/area)Ordered By: Tray Rosey on 41-27-4815LSH Auto (Urine sed) [#/Area]5-9 [HPF]0-4FAshtabula County Medical CenterAutomated leukocytes count in urine sediment (number/area)Ordered By: Tray Morrisarthy on 25-48-7012JJE Auto (Urine sed) [#/Area]50-100 [HPF]0-4FAshtabula County Medical Center Automated urine hyaline casts count (number/volume)Ordered By: Tray Morrisarthy on 46-45-1017Uhgglob casts Auto (U) [#/Vol]None seen [LPF]0-1FAshtabula County Medical CenterBilirubin Test strip Ql (U)Ordered By: Tray Jer on 97-54-4587Anonkrprg Ql (U)NegativeNegativeL[facility]aster Municipal Hospital COVID-19 Positive/NegativeOrdered By: Trayumu Randle on 80-30-6618KFKL-CoV-2 (COVID-19) N gene TEJINDER+probe Ql (Resp)NegativeNegUniversity Hospitals Elyria Medical CenterComment on above:Testing for SARS-CoV-2 by RT-PCR This test was developed and its performance characteristics determined by [employer] ([employer]) and validated at the [facility]. This test has not been FDA [...] revoked sooner.COVID-19 SOFIAOrdered By: Tray Randle on 38-16-9414NWUQ-CoV+SARS-CoV-2 (COVID-19) Ag IA.rapid Ql (Resp)NegativeNegative [facility] HospitalComment on above:This is a duplicate Molly SARS Antigen (ANUP) result to be used for statistical tracking purpose only.Casts typing in urine sediment by light microscopyOrdered By: Tray Randle on 00-87-6317Ogwdv LM Nom (Urine sed)None seen [LPF]None SeenLancaster Municipal HospitalColor Auto (U)Ordered By: Tray Randle on 18-41-7876Minrj (U) YellowYellowLancaster Municipal HospitalKetones Auto test strip (U) [Mass/Vol]Ordered By: Tray Randle on 93-40-8563Kmvzhit (U) [Mass/Vol] NegativeNegativeLancaster Municipal HospitalNitrite Test strip Ql (U) Ordered By: Tray Randle on 06-66-1946Qkzghda Ql (U)PositiveNegative [facility] HospitalNo Panel InformationOrdered By: Tray Randle on 16-94-0311TZYJ Antigen (LFIA)[facility] Protein Auto test strip (U) [Mass/Vol]Ordered By: Tray Randle on 12-09-2021 Protein (U) [Mass/Vol]NegativeNegativeMcKitrick Hospitalpecific gravity Auto test strip (U) [Rel density]Ordered By: Tray Randle on 25-68-5699Ttavuxhv gravity (U) [Rel density]1.0301.001-1.030McKitrick Hospitalquamous epithelial cells detection in urine sediment by light microscopyOrdered By: Tray Randle on 14-92-6238Dzjbluaepd cells.squamous LM Ql (Urine sed)-19 [HPF]0-2FAshtabula County Medical CenterTroponin I.cardiac [Mass/volume] in Serum or Plasma by High sensitivity methodOrdered By: Arleen Stephen on 46-20-2252Nmctxkrt I.cardiac High sensitivity method [Mass/Vol]5 pg/mL 0-15[facility] HospitalUrine bacteria detection by automated methodOrdered By: Tray Randle on 28-45-7240Sxccehxp Auto Ql (U)4+None Seen [facility] HospitalUrine clarity by refractometry automatedOrdered By: Tray Randle on 69-55-8884Vzfrhjc Refractometry automated (U)Cloudy ClearLancaster Municipal HospitalUrine glucose measurement by automated test strip (mass/volume)Ordered By: Tray Randle on 36-28-0938Cbmasca Auto test strip (U) [Mass/Vol]>=1000 mg/dLNoMercy Health Urbana Hospital Urine hemoglobin detection by automated test stripOrdered By: Tray Randle on 55-84-7202Vhntblypno Auto test strip Ql (U)TraceNegativeLancaster Municipal HospitalUrine lactic acid measurementOrdered By: Arleen Stephen on 82-19-3423Wodgabm (U) [Moles/Vol]1.7 mmol/L0.5-2.2FAshtabula County Medical CenterUrine leukocyte esterase detection by automated test stripOrdered By: Tray Randle on 31-57-2809Cqghcoyjs esterase Auto test strip Ql (U)2+ NegativeLancaster Municipal HospitalUrobilinogen Auto test strip (U) [Mass/Vol]Ordered By: Tray Randle on 84-75-9288Hiuhgrqzfpyx (U) [Mass/Vol] Normal mg/dLNoMercy Health Urbana HospitalpH Auto test strip (U)Ordered By: Tray Randle on 38-54-7384cO (U)5.5 [pH]5.0-9.0[facility] HospitalA1C HEMOGLOBINon 14-74-7220HuR4a (Bld) [Mass fraction]7.5 %TopTenREVIEWS Other HbA1c (Bld) [Mass fraction]on 51-75-3691O2E HEMOGLOBIN TopTenREVIEWS Other a1c HEMOGLOBINon 01-44-7951QfI4p (Bld) [Mass fraction] 6 %TopTenREVIEWS Other Glucose - FINGER STICKon 85-88-2468Qucnxcp [Mass/Vol] 150 mg/dLNoAdReady Other HbA1c (Bld) [Mass fraction]on 46-70-1439T2C HEMOGLOBIN TopTenREVIEWS Other A1C HEMOGLOBINon 36-32-7267WvP7e (Bld) [Mass fraction] 6.9 %TopTenREVIEWS Other Glucose - FINGER STICKon 13-97-6232Vlkdqzk [Mass/Vol] 244 mg/dLNort Bundlr Other HbA1c (Bld) [Mass fraction]on 47-27-6239U4Q HEMOGLOBIN TopTenREVIEWS Other PROGRESSon 37-82-0435GLJZLLGTPQH ID: [id number] Author: Clyde Hall Service: ? Author Type: [...] - RTC to see Feb [facility] at [facility], to ensure complete healing, and further discuss plan of care re pathology results. - call office prn for issues/concerns Clyde Hall APRN.[facility] 02-36-9039CNHMFuzzlk Visit (GYNML) TAYE GAY ([id number]) 1955 F Date Time Provider Department 02/11/19 2:30 PM CLYDE HALL ([facility]) GYNML During your visit today, we [...] call office prn for issues/concerns Clyde Hall APRN.[employer] Referring Provider: THEO JOAQUIN [[id number]] Allergies As of Date: 02/11/2019 Noted Allergy [...] Encounter Status:Closed by CLYDE HALL CNP on 02/12/19[facility] 84-39-6899NYJBCrifos Visit (GYNML) TAYE GAY ([id number]) 1955 F Date Time Provider Department 01/21/19 10:45 AM THEO JOAQUIN GYNDOMINIK During your visit today, we recorded the following information about you: Temperature Pulse Blood pressure Weight 98.6 degrees 94/minute 111/52 91.4 kg Theo Joaquin MD 01/22/2019 2:06 PM Signed Gynecologic Oncology [facility] Re: Taye Gay CCF#:[id number] 01/21/2019 Dear Linwood Irwin: Taye presents for [...] note were sent to: Linwood Irwin MD ([facility]) [address] [place] [phone] CC: Jonas Yoder MD (PCP) Referring Provider: THEO JOAQUIN [[id number]] Allergies As of Date: 01/21/2019 Noted Allergy [...] Status:Closed by THEO JOAQUIN MD on 01/22/19[facility] PROGRESSon 96-34-5701DHAOKXJPHMO ID: [id number] Author: Theo Joaquin Service: ? Author Type: Physician Type: Progress Notes Filed: 01/22/2019 2:06 PM Note Text: Gynecologic Oncology [facility] Re: Taye Gay CCF#:[id number] 01/21/2019 Dear Linwood Irwin: Taye presents for [...] sent to: Linwood Irwin MD ([facility]) [facility] [address] CC: Jonas Yoder MD (PCP)[facility] CenterCNOVon 63-16-1300JEPY Office Visit (GYNML) PRITITAYE ([id number]) 1955 F Date Time Provider Department 01/07/19 8:30 AM THEO JOAQUIN GYN During your visit today, we recorded the following information about you: Temperature Pulse Blood pressure Weight 98.4 degrees 124/minute 103/53 90.2 kg Theo Joaquin MD 01/10/2019 11:17 PM Signed Gynecologic Oncology [facility] Re: Taye Priti CCF#:[id number] 01/07/2019 Dear Linwood Irwin: Taye presents for [...] were sent to: Linwood Irwin MD ([facility]) [address] [place] [address] CC: Jonas Yoder MD (PCP) Referring Provider: THEO JOAQUIN [[id number]] Allergies As of Date: 01/07/2019 Noted Allergy [...] Encounter Status:Closed by THEO JOAQUIN MD on 01/10/19[facility] 64-73-4851AXNVImiwwxipu (GYNML) TAYE GAY ([id number]) 1955 F Date Time Provider Department 01/06/19 [...] Appointment made with Dr. Joaquin 01/07 @ 2817 for wound check Patient verbalized understanding and [...] Encounter Status:Closed by SHANTEL REYNOSO on 01/06/19[facility] PROGRESSon 33-39-7876WEXNJKZHOET ID: [id number] Author: Theo Joaquin Service: ? Author Type: Physician Type: Progress Notes Filed: 01/10/2019 11:17 PM Note Text: Gynecologic Oncology [facility] Re: Taye Priti CC#:[id number] 01/07/2019 Dear Linwood Irwin: Taye presents for [...] this office note were sent to: Linwood Irwni MD ([facility]) [facility] [address] [address] CC: Jonas Yoder MD (PCP)[facility] CenterANES Yousuf 55-79-1882ATES POSTHNO ID: [id number] Author: Katharina Durham Service: Anesthesiology Author Type: [...] January 01, 2019 TIME: 9:45 AM PAGER/CONTACT #:[facility] CenterANES PREOPon 07-20-1201GJYM PREOPHNO ID: [id number] Author: Katharina Durham Service: Anesthesiology Author Type: [...] January 01, 2019 TIME: 7:35 AM PAGER/CONTACT #:[facility] CenterTORY PHYSICALon 54-14-2048WXIJXFJ PHYSICALHNO ID: [id number] Author: Petty Shahid (Fel) Service: Gynecology Oncology [...] January 01, 2019 TIME: 7:16 AM PAGER:[facility] CenterOPERATIVE NOon 84-43-8100OPWLBEACS NO HNO ID: [id number] Author: Theo Joaquin Service: Gynecology Oncology Author Type: Physician Type: Operative Report Filed: 01/17/2019 7:16 PM Note Text: OPERATIVE/PROCEDURE REPORT LOG ID: [id number] SURGERY/PROCEDURE DATE: 01/01/2019 INCISION/PROCEDURE START TIME: 8:11 AM INCISION CLOSE/PROCEDURE END TIME: 8:34 AM SURGEON(S)/PROCEDURALIST(S) AND MASTER PLANNER(S): Surgeon(s) and Role: * Theo Joaquin [...] January 03, 2019 TIME: 2:24 PM PAGER/CONTACT #:[facility] CenterPT EDon 51-67-8788IW EDHNO ID: [id number] Author: Patty GalvinRn) BRENDA Bernal Service: Nursing [...] flavia st Electronically Signed By: Patty Bernal RNNoGuardian HospitalPT EDHNO ID: [id number] Author: Zack GalvinRn) BRENDA Murry Service: Nursing [...] (RECOMMENDATION): None Electronically Signed By: Zack Murry RNClover Hill Hospital EDHNO ID: [id number] Author: Jelly (Rn) BRENDA Simmons Service: Nursing [...] (RECOMMENDATION): None Electronically Signed By: Jelly Simmons RNMcLean Hospital PATHOLOGYon 56-42-5539HTDVQGIJ PATHOLOGYSpecimen originated from [facility] Specimen #: [id number] Submitting Physician: THEO JOAQUIN MD FINAL DIAGNOSIS [...] o'clock. EL/clay 01/01/2019 Gross examination performed at [facility], [address] [place] [address] Date of Report: 01/05/2019 Date of Procedure: 01/01/2019 Date of Receipt: 01/01/2019 Submitted by: THEO JOAQUIN MD Location: [facility] Diagnostic interpretation performed at [facility], [address] [place], [place] [address]. [facility] Number: [id number] Hospital [facility] 73-39-6679BVRMFRK OSVALDO ID: [id number] Author: Nataliya GalvinRn) BRENDA Bell Service: Nursing [...] Nataliya Bell RN December 24, 2018 3:07 PMNormalTufts Medical CenterConfirm Blood Typeon 12-17-2018 ABO/RH(D)PositiveBenjamin Stickney [facility] HospitalComment on above:Performed By: #### CONABO #### [place] [address] Aggg and SCR (30D)on 37-31-1650ECS/RH(D)PositiveBenjamin Stickney [facility] Hospital HospitalComment on above:Performed By: #### TSCR30 #### [place] [address] CWIVny 56-45-6181EMZXVdxtxat:Taye Gay MRN: Height:5' 7 (1.702 m) Weight:200 [...] 51.2 % 12/17/2018 46.0 36.0 Progress Notes (CLINICAL RESEARCH MANAGEMENT ASSOCIATE [employer]): Aracelis Charles, RN, RN 12/22/2018 11:38 AM Signed Pre-op teaching Procedure: vulvar surgery Physician: Location: [facility]: [phone] Date AND Time: 01/01/19 MEDICAL CLEARANCE: No [...] Naprosyn(naproxen) Agrylin NSAIDS Pepto-Bismol Aleve Ecotrin Persantine [place] Excedrin Plaquenil Anacin Heparin Plavix Ascriptin Herbals [...] - IV pain medication after surgery, IV CLEAN UP SUPERVISOR if ordered by MD, discharged home with a prescription for PO pain medication, pain management after surgery, side effects of pain medication (including constipation, dizziness, drowsiness, and medication interactions). DVT PROPHYLAXIS - Early ambulation, SCDs, injectable anticoagulants (heparin, lovenox, etc) RESPIRATORY - Incentive spirometer, coughing/deep breathing exercises, ambulation. RETURN TO WORK - As directed by physician, please send any FMLA papers to physician's office secretary. SYMPTOMS TO NOTIFY MD - Fever, [...] if after hours patient instructed to call mill operator and ask for the doctor director of collections and archives. Patient and family have phone number to call 24 hours/day. Patient Evaluation: Verbalizes understanding Patient and/or family express understanding of upcoming surgery and the operative process. Questions answered. Follow Up Plan: Follow up as needed Supplemental Material Given: Pre-operative teaching packet provided to the patient: INPATIENT/OUTPATIENT printed instructions; Post-operative instruction sheet, bowel prep instruction sheet For questions contact: office at [phone] Instructed By Aracelis Charles RNLahey Medical Center, Peabodyerum or plasma calcidiol measurement (mass/volume)on 79-27-250427816643-afphgfkffwaegm D3 [Mass/Vol] 32.8 ng/tN29-223EslznjohgLancaster Municipal HospitalComment on above:VITAMIN D STATUS 25(OH)VITAMIN D RANGE (ng/mL) Deficient <20 Insufficient 20 to <18Ocodkcjkna67 to 100Reference: Sandra MF,Felisha SCANLON, Leon SHERWOOD, et al. Evaluation,treatment, and prevention of vitamin D deficiency; an Endocrine Society clinical practice guideline. JCEM. 2010; 96(7):1911-30.Vitamin B12 ser/plason 10-42-4055Gxrozldtd (Vitamin B12) [Mass/Vol]446 pg/yW685-303NeqlugsjiLancaster Municipal HospitalBASIC METABOLIC PANELon 03-22-3001Vzmxg gap11 mmol/L Normal0-19Mckitrick HospitalComment on above:Performed By: #### BMP ####[address],[place], [place] [address]IDU/Creatinine Ratio16.0 RATIONormal 8-21Mckitrick HospitalComment on above:Performed By: #### BMP ####[address],[place], [place] [address]Xswbjui7.1 mg/dLNormal8.5-10.4[facility] Comment on above:Performed By: #### BMP ####[address],[place], [place] [address]Ynctavws59 mmol/LHkxkwx00-240Rjjs Health SystemComment on above:Performed By: #### BMP ####[address],[place], [place] [address] mmol/AMuredw34-17 [facility] HospitalComment on above:Performed By: #### BMP ####[address],[place], [place] [address]Vezeyimfim3.5 mg/dLNormal0.4-1.6[facility] Comment on above:Performed By: #### BMP ####[address],[place], [place] [address]nTHH (MDRD)NormalMckitrick HospitalComment on above:Result Comment: 134GFR ml/min/1.73m2 Stage -----90 160-89 230-59 315-29 4<15 5For -Americans, multiply EGFR result by 1.210Calculation not validated for patients under 18 years of age.Performed at [facility],[address],[place] [address]Juepnyoez By: #### BMP ####[address],[place], [place] [address]Lnlmdnb mass hahk830 mg/nOTqkv70-36ZbhlMckitrick HospitalComment on above:Performed By: #### BMP ####[address],[place], [place] [address]Wirivymbx molar conc4.6 mmol/L Normal3.4-5.1LSouthview Medical CenterComment on above:Performed By: #### BMP ####[address],[place], [place] [address]Tqbyjw502 mmol/IXwxlcb323-918Vswo Health SystemComment on above:Performed By: #### BMP ####[address],[place], [place] [address]Fufj nitrogen8 mg/dLNormal8-25Mckitrick HospitalComment on above:Performed By: #### BMP ####[address],[place], [place] [address]HNHsf 44-31-1514NEOEKGVentricular Rate : 60 BPMAtrial Rate : 60 BPMP-R Interval : 166 msQRS Duration : 80 msQ-T Interval : 432 msQTC Calculation(Bezet) : 432 msCalculated P [place] : 63 degreesCalculated R [place] : 29 degreesCalculated T [place] : 35 degreesDiagnosis:Normal sinus rhythmNormal ECGNo previous ECGs cecy ilableConfirmed by Walter Slaughter ([id number]) on 05/16/2017 3:45:18 PMNMassena Memorial HospitalHEMOGLOBIN,HCTon 33-31-5167Vwpmnjkbts (HCT)Rzwl46-82E[address] [place] [address] Comment on above:Result Comment: 49.3Performed at [facility],[address] [place], [place] [address]Axbczdzrd By: #### HH ####[address],[place], [place] [address]Mbarjvdzcl mass conc (Bld)16.9 g/fPUpsw47.0-15.0M[facility]itrick HospitalComment on above:Performed By: #### HH ####[address] ,[place] [address] Operative Reporton 28-03-9010Pvsinqqpt ReportNoMetropolitan Hospital CenterPOCT GLUCOSEon 79-43-9145Uylkdaf mass fezv029 mg/mEVhxu95-55PixmMckitrick HospitalComment on above:Performed By: #### PCGL ####[facility] [place], [place] [address]Sdljfqb mass xspz705 mg/rWTxrc78-28Blhs76 Phillips StreetComment on above: Performed By: #### PCGL ####[facility] [place], [place] [address]Qyyhmbn mass bjax465 mg/cSJuuo09-09Ausz76 [address] StreetComment on above:Performed By: #### PCGL ####[address] [place], [place] [address]Jnzkjzr mass qjpx288 mg/lEYbux71-59Fajg76 [address] StreetComment on above:Performed By: #### PCGL ####[address] [place] [address] Vital Signs Date TimeVital SignValuePerforming BmpynooqiNiofreaq64-51-7074 12:41-0400Body mass index (BMI) [Ratio]30.38 kg/i9OemzyaLinwood Irwin MD Work Phone: [phone] Medical CenterUkwqtuscxw86-15-8549 12:41-0400Body fpoqsh26 kg Linwood Irwin MD Work Phone: [phone])[address]10-14-2025 12:41-0400Diastolic blood jmqizrsa17 mm[Hg]Linwood Irwin MD Work Phone: [phone])[address]10-14-2025 12:41-0400Systolic blood ihlighig959 mm[Hg]Linwood Irwin MD Work Phone: 1([phone] [place], [place] [address]Zrtnmdkbko19-67-6259 13:19-0400Body usbjqs100.2 cmPpatti Irwin MD Work Phone: [phone])289-[facility] CenterKhpnrpkmwh77-98-7943 13:19-0400Body mass index (BMI) [Ratio]30.07 kg/e6DuqocvLinwood Irwin MD Work Phone: [facility] CenterBayobpgssu12-96-2874 13:19-0400Body qkadfh78.09 kgLinwood Irwin MD Work Phone: [phone] [place], [place] [address]Jsdldarjyd73-91-5984 13:19-0400Diastolic blood rouxwdas38 mm[Hg]Linwood Irwin MD Work Phone: [phone])359-[facility] CenterQsmksthlkp54-44-0592 13:19-0400Systolic blood woupwgbl419 mm[Hg]Linwood Irwin MD Work Phone: [facility] CenterOzlentuzmd14-89-3534 16:15-0400Body jcdpib410.2 cmOz Kincaid MD Work Phone: [facility] CenterPlmfodlluu74-61-6001 16:15-0400Body mass index (BMI) [Ratio]30.54 kg/m2Oz Kincaid MD Work Phone: [facility] CenterXhfdezswgr56-85-2468 16:15-0400Body uzobgf69.45 kgOz Kincaid MD Work Phone: [facility] CenterQlrukuxixw36-37-4522 14:23-0400Body fxdfas531.18 cmShantel Elliszara WASHATERIA ATTENDANT Work Phone: [phone] [place], [place] [address]109-16-2025 14:23-0400 Body mass index (BMI) [Ratio]30.5 kg/b2Qkqmkewf Rohzara WASHATERIA ATTENDANT Work Phone: [phone])[address] [place], [place] 2262509-16-2025 14:23-0400 Body ydbzolstcsc06 [degF]Shantel Cierra WASHATERIA ATTENDANT Work Phone: [phone] [place], [place] 226[address]09-16-2025 14:23-0400 Body luptyc13.45 kgBeccakanchan Corralzara WASHATERIA ATTENDANT Work Phone: [phone]09-16-2025 14:23-0400 Diastolic blood whdivpnq14 mm[Hg]Shantel Cierra WASHATERIA ATTENDANT Work Phone: [phone]09-16-2025 14:23-0400 Heart rate88 /minBeccakanchan Norton WASHATERIA ATTENDANT Work Phone: [phone] [place], [place] 226[address]09-16-2025 14:23-0400 SaO2% (BldA) [Mass fraction]96 %Shantel Cierra WASHATERIA ATTENDANT Work Phone: [phone] [place], [place] [address]109-16-2025 14:23-0400 Systolic blood zwlhwikp202 mm[Hg]Shantel Cierra BRAYN Work Phone: [phone] [place], [place] 226[address]09-09-2025 13:32-0400 Body qmqvqe807.18 cmBeccakanchan Elliszara WASHATERIA ATTENDANT Work Phone: [phone]09-09-2025 13:32-0400 Body mass index (BMI) [Ratio]30.5 kg/o6TcdoqfqtShantel Norton WASHATERIA ATTENDANT Work Phone: [phone]09-09-2025 13:32-0400 Body vpemqm48.5 kgShantel Norton WASHATERIA ATTENDANT Work Phone: [phone] [place], [place] 5[address]109-09-2025 13:32-0400 Diastolic blood vstimesc63 mm[Hg]Shantel Corralzara WASHATERIA ATTENDANT Work Phone: [phone] [place], [place] [address]109-09-2025 13:32-0400 Heart rate79 /Aaliyah Yeer WASHATERIA ATTENDANT Work Phone: [phone]09-09-2025 13:32-0400 Respiratory rate18 /Aaliyah Norton WASHATERIA ATTENDANT Work Phone: [phone]09-09-2025 13:32-0400 SaO2% (BldA) [Mass fraction]96 %Shantel Corralzara WASHATERIA ATTENDANT Work Phone: [phone] [place], [place] 5[address]109-09-2025 13:32-0400 Systolic blood rgffcfgi921 mm[Hg]Shantel Cierra BRAYN Work Phone: [phone] [place], [place] 5[address]109-03-2025 13:47-0400 Body byogko444.2 cmRoland Faust MD Work Phone: [facility]09-03-2025 13:47-0400 Body mass index (BMI) [Ratio]30.85 kg/v3RnfoymlRoland Faust MD Work Phone: [facility]09-03-2025 13:47-0400 Body yqzaty30.36 kgRoland Faust MD Work Phone: [facility]09-03-2025 13:47-0400 Diastolic blood mm[Hg]Roland Faust MD Work Phone: [address] [place], [place] 5085309-03-2025 13:47-0400 Heart rate62 /Luz Faust MD Work Phone: [facility]09-03-2025 13:47-0400 Systolic blood yqclbfuj719 mm[Hg]Roland Faust MD Work Phone: [facility]08-19-2025 13:52-0400 Body kvdhmu148.18 cmGloria Keita DO Work Phone: [phone] [place], [place] 0330308-19-2025 13:52-0400 Body mass index (BMI) [Ratio]30.7 kg/y5Tzqexg Keita DO Work Phone: [phone])[address] [place], [place] 0330308-19-2025 13:52-0400 Body qgwqhfjcazh32.4 [degF]Sandra Debbie DO Work Phone: 1(601)[address] [place], [place] 0330308-19-2025 13:52-0400 Body gnjfor22.9 kgGloria Keita DO Work Phone: [phone])[address] [place], [place] 0330308-19-2025 13:52-0400 Diastolic blood fjtpysxh30 mm[Hg]Sandra Keita DO Work Phone: 1(231)[address] [place], [place] 0330308-19-2025 13:52-0400 Heart rate79 /minGloria Keita DO Work Phone: 1(352)[address] [place], [place] 0330308-19-2025 13:52-0400 SaO2% (BldA) [Mass fraction]98 %Sandra Keita DO Work Phone: [phone] [place], [place] 128[address]08-19-2025 13:52-0400 Systolic blood xpjhiarg63 mm[Hg]Sandra Keita DO Work Phone: 1(946)[address] [place], [place] 0330306-10-2025 13:57-0400 Body .2 cmOz Kincaid MD Work Phone: [facility] CenterYsiqdncvac97-16-0587 13:57-0400Body mass index (BMI) [Ratio]31.48 kg/m2Oz Kincaid MD Work Phone: [facility] CenterSylsqnzffm65-63-8848 13:57-0400Body pxaaoo73.17 kgOz Kincaid MD Work Phone: [facility] CenterBqcqntxamw92-27-7256 14:59-0400Body poewas478.18 cmGloria Keita DO Work Phone: [phone])[address] [place], [place] 0330306-05-2025 14:59-0400 Body mass index (BMI) [Ratio]31.4 kg/m4Pdnivh Keita DO Work Phone: 1(769)[address] [place], [place] 0330306-05-2025 14:59-0400 Body xijmqy00.17 kgGloria Keita DO Work Phone: 1(692)[address] [place], [place] 0330306-05-2025 14:59-0400 Diastolic blood cesvshxr49 mm[Hg]Sandra Keita DO Work Phone: 1(578)[address] [place], [place] 0330306-05-2025 14:59-0400 Heart rate65 /minGloria Keita DO Work Phone: 1(258)[address] [place], [place] 0330306-05-2025 14:59-0400 SaO2% (BldA) [Mass fraction]95 %Sandra Keita DO Work Phone: 1(351)[address] [place], [place] 0330306-05-2025 14:59-0400 Systolic blood isubcvym95 mm[Hg]Sandra Keita DO Work Phone: 1(905)[address] [place], [place] 0330305-15-2025 13:30-0400 Diastolic blood adxcloec53 mm[Hg]Sandra Keita DO Work Phone: 1(106)[address] [place], [place] 0330305-15-2025 13:30-0400 Heart rate79 /minGloria Keita DO Work Phone: 1(462)[address] [place], [place] 0330305-15-2025 13:30-0400 Respiratory rate16 /minGloria Keita DO Work Phone: 1(909)[address] [place], [place] 0330305-15-2025 13:30-0400 SaO2% (BldA) [Mass fraction]95 %Sandra Keita DO Work Phone: 1(730)[address] [place], [place] 0330305-15-2025 13:30-0400 Systolic blood mm[Hg]Sandra Keita DO Work Phone: 1(824)[address] [place], [place] 0330305-15-2025 13:00-0400 Inhaled oxygen flow rate2 L/minGloria Keita DO Work Phone: 1(796)[address] [place], [place] 0330305-15-2025 11:07-0400 Body cgcwei813.18 cmGloria Keita DO Work Phone: 1(166)[address] [place], [place] 0330305-15-2025 11:07-0400 Body .71 kgGloria Keita DO Work Phone: 1(708)[address] [place], [place] 0330305-12-2025 11:06-0400 Diastolic blood kvomcdrk61 mm[Hg]Sandra Keita DO Work Phone: 1(400)[address] [place], [place] 0330305-12-2025 11:06-0400 Systolic blood bxulzdvc789 mm[Hg]Sandra Keita DO Work Phone: 1(386)[address] [place], [place] 0330304-29-2025 13:37-0400 Body yuhsya187.18 cmGloria Keita DO Work Phone: 1(260)[address] [place], [place] 0330304-29-2025 13:37-0400 Body mass index (BMI) [Ratio]31.8 kg/d0Dirzkt Keita DO Work Phone: 1(966)[address] [place], [place] 0330304-29-2025 13:37-0400 Body votbkf39.16 kgGloria Keita DO Work Phone: 1(773)[address] [place], [place] 0330304-29-2025 13:37-0400 Diastolic blood mm[Hg]Sandra Keita DO Work Phone: 1(329)[address] [place], [place] 0330304-29-2025 13:37-0400 Heart rate71 /minGloria Keita DO Work Phone: 1(498)[address] [place], [place] 0330304-29-2025 13:37-0400 Respiratory rate18 /minGloria Keita DO Work Phone: 1(111)[address] [place], [place] 0330304-29-2025 13:37-0400 SaO2% (BldA) [Mass fraction]96 %Sandra Keita DO Work Phone: 1(189)[address] [place], [place] 0330304-29-2025 13:37-0400 Systolic blood uicaukdp771 mm[Hg]Sandra Keita DO Work Phone: 1(083)[address] [place], [place] 0330304-24-2025 10:03-0400 Body yffjro008.18 cmGloria Keita DO Work Phone: 1(051)[address] [place], [place] 0330304-24-2025 10:03-0400 Body mass index (BMI) [Ratio]32.2 kg/q3Rmjuys Keita DO Work Phone: 1(877)[address] [place], [place] 0330304-24-2025 10:03-0400 Body oicows57.3 kgGloria Keita DO Work Phone: 1(887)[address] [place], [place] 0330304-24-2025 10:03-0400 Diastolic blood slwdjbeb81 mm[Hg]Sandra Keita DO Work Phone: 1(047)[address] [place], [place] 0330304-24-2025 10:03-0400 Heart rate64 /minGloria Keita DO Work Phone: 1(753)[address] [place], [place] 0330304-24-2025 10:03-0400 Respiratory rate18 /minGloria Keita DO Work Phone: 1(079)[address] [place], [place] 0330304-24-2025 10:03-0400 SaO2% (BldA) [Mass fraction]94 %Sandra Keita DO Work Phone: 1(209)[address] [place], [place] 0330304-24-2025 10:03-0400 Systolic blood zftxyowi261 mm[Hg]Sandra Keita DO Work Phone: 1(090)[address] [place], [place] 0330303-26-2025 11:19-0400 Body hstxin123.18 cmGloria Keita DO Work Phone: 1(196)[address] [place], [place] 0330303-26-2025 11:19-0400 Body mass index (BMI) [Ratio]31.3 kg/m3Yjeapq Keita DO Work Phone: 1(992)[address] [place], [place] 0330303-26-2025 11:19-0400 Body bvlbiesekrh92.2 [degF]Sandra Keita DO Work Phone: 1(724)[address] [place], [place] 0330303-26-2025 11:19-0400 Body eiudgr39.71 kgGloria Keita DO Work Phone: 1(660)[address] [place], [place] 0330303-26-2025 11:19-0400 Diastolic blood rcrarqhy62 mm[Hg]Sandra Keita DO Work Phone: 1(124)[address] [place], [place] 0330303-26-2025 11:19-0400 Heart rate72 /minGloria Keita DO Work Phone: 1(047)[address] [place], [place] 0330303-26-2025 11:19-0400 Respiratory rate16 /minGloria Keita DO Work Phone: 1(527)[address] [place], [place] 0330303-26-2025 11:19-0400 SaO2% (BldA) [Mass fraction]98 %Sandra Keita DO Work Phone: 1(910)[address] [place], [place] 0330303-26-2025 11:19-0400 Systolic blood fegvaekk556 mm[Hg]Sandra Keita DO Work Phone: 1(433)[address] [place], [place] 0330303-25-2025 14:48-0400 Body .2 cmOz Kincaid MD Work Phone: [facility] CenterMhvhhvltnt20-42-2043 14:48-0400Body mass index (BMI) [Ratio]31.32 kg/m2Oz Kincaid MD Work Phone: [facility] CenterLggzzxupqt02-70-8056 14:48-0400Body mhcvyy09.72 kgOz Kincaid MD Work Phone: [facility] CenterMnvesoxfpq08-62-4477 09:46-0500Body .2 cmRoland Faust MD Work Phone: [facility]02-28-2025 09:46-0500 Body mass index (BMI) [Ratio]32.51 kg/u6XmihptrRoland Faust MD Work Phone: [facility]02-28-2025 09:46-0500 Body neeqxq46.17 kgRoland Faust MD Work Phone: 1(179)955-16[facility]02-28-2025 09:46-0500 Diastolic blood mm[Hg]Roland Faust MD Work Phone: 1(276)909-[address] [place], [place] 1980602-28-2025 09:46-0500 Heart rate62 /minRoland Faust MD Work Phone: 1(369)612-[address] [place], [place] 1980602-28-2025 09:46-0500 Systolic blood mm[Hg]Roland Faust MD Work Phone: [facility]01-09-2025 13:07-0500 Body miaimr273.18 cmSatishoria Keita DO Work Phone: 1(577)[address] [place], [place] 0330301-09-2025 13:07-0500 Body mass index (BMI) [Ratio]32.9 kg/g2Mzynmi Keita DO Work Phone: 1(365)1-[address] [place], [place] 1281201-09-2025 13:07-0500 Body .3 kgGloria Keita DO Work Phone: 1(476)[address] [place], [place] 0330301-09-2025 13:07-0500 Diastolic blood shwmezem78 mm[Hg]Sandra Keita DO Work Phone: 1(023)[address] [place], [place] 0330301-09-2025 13:07-0500 Heart rate64 /minGlsenait Keita DO Work Phone: 1(657)[facility]01-09-2025 13:07-0500 Respiratory rate18 /minGloria Keita DO Work Phone: 1(314)[address] [place], [place] 0330301-09-2025 13:07-0500 SaO2% (BldA) [Mass fraction]97 %Sandra Keita DO Work Phone: 1(852)[address] [place], [place] 0330301-09-2025 13:07-0500 Systolic blood cuwngbpr83 mm[Hg]Sandra Keita DO Work Phone: 1(017)[address] [place], [place] 0330301-02-2025 08:25-0500 Body npybbmmmxqa11.8 [degF]Sandra Keita DO Work Phone: 1(244)[address] [place], [place] 0330301-02-2025 08:25-0500 Diastolic blood alpwqomv42 mm[Hg]Sandra Keita DO Work Phone: 1(760)[address] [place], [place] 0330301-02-2025 08:25-0500 Heart rate64 /minGloria Keita DO Work Phone: 1(124)[address] [place], [place] 0330301-02-2025 08:25-0500 Respiratory rate18 /minGloria Keita DO Work Phone: 1(984)[address] [place], [place] 0330301-02-2025 08:25-0500 SaO2% (BldA) [Mass fraction]96 %Sandra Keita DO Work Phone: 1(544)[address] [place], [place] 0330301-02-2025 08:25-0500 Systolic blood zeyfvjga117 mm[Hg]Sandra Keita DO Work Phone: 1(222)[address] [place], [place] 0330301-02-2025 05:12-0500 Body npaoxo86.2 kgGloria Keita DO Work Phone: 1(745)[address] [place], [place] 0330312-31-2024 23:40-0500 Body .18 cmGloria Keita DO Work Phone: 1(619)[address] [place], [place] 0330312-31-2024 23:19-0500 Diastolic blood kdxsknue69 mm[Hg]Sandra Keita DO Work Phone: 1(818)[address] [place], [place] 0330312-31-2024 23:19-0500 Heart rate72 /minGloria Keita DO Work Phone: 1(190)[address] [place], [place] 0330312-31-2024 23:19-0500 Respiratory rate18 /minGloria Keita DO Work Phone: 1(469)[address] [place] 0330312-31-2024 23:19-0500 SaO2% (BldA) [Mass fraction]98 %Sandra Keita DO Work Phone: 1(829)[address] [place] 0330312-31-2024 23:19-0500 Systolic blood gyyhpzsn122 mm[Hg]Sandra Keita DO Work Phone: 1(292)[address] [place], [place] 0330312-31-2024 19:39-0500 Body bfwlku183.18 cmGloria Keita DO Work Phone: 1(171)[address] [place], [place] 0330312-31-2024 19:39-0500 Body yxagrvydtvn85.1 [degF]Sandra Keita DO Work Phone: 1(001)[address] [place], [place] 0330312-31-2024 19:39-0500 Body azssla66.4 kgGloria Keita DO Work Phone: 1(234)[address] [place], [place] 0330312-31-2024 11:35-0500 Body bobbfw634.18 cmGloria Keita DO Work Phone: 1(849)[address] [place], [place] 0330312-31-2024 11:35-0500 Body mass index (BMI) [Ratio]32.5 kg/m3Xgizdi Keita DO Work Phone: 1(429)[address] [place] 0330312-31-2024 11:35-0500 Body .34 kgGloria Keita DO Work Phone: 1(671)[address] [place] 0330312-31-2024 11:35-0500 Diastolic blood mwmsennc85 mm[Hg]Sandra Keita DO Work Phone: 1(165)[address] [place] 0330312-31-2024 11:35-0500 Heart rate71 /minGloria Keita DO Work Phone: 1(893)[address] [place] 0330312-31-2024 11:35-0500 Respiratory rate18 /minGloria Keita DO Work Phone: 1(494)[address] [place] 0330312-31-2024 11:35-0500 SaO2% (BldA) [Mass fraction]94 %Sandra Keita DO Work Phone: 1(182)[address] [place] 0330312-31-2024 11:35-0500 Systolic blood zzqtrkmy12 mm[Hg]Sandra Keita DO Work Phone: 1(533)[address] [place] 0330312-31-2024 10:15-0500 Body ayjmvq227.18 cmGloria Keita DO Work Phone: 1(708)[address] [place], [place] 0330312-31-2024 10:15-0500 Body mass index (BMI) [Ratio]32.7 kg/j9Bjtnyi Keita DO Work Phone: 1(103)[address] [place], [place] 0330312-31-2024 10:15-0500 Body tidsxbvnsxc15.9 [degF]Sandra Keita DO Work Phone: 1(432)[address] [place] 0330312-31-2024 10:15-0500 Body pjxupo20.8 kgGloria Keita DO Work Phone: 1(526)[address] [place], [place] 0330312-31-2024 10:15-0500 Diastolic blood mm[Hg]Sandra Keita DO Work Phone: 1(935)[address] [place] 0330312-31-2024 10:15-0500 Heart rate70 /minGloria Keita DO Work Phone: 1(566)[address] [place] 0330312-31-2024 10:15-0500 Respiratory rate16 /minGloria Keita DO Work Phone: 1(157)[address] [place] 0330312-31-2024 10:15-0500 SaO2% (BldA) [Mass fraction]96 %Sandra Keita DO Work Phone: 1(616)[address] [place] 0330312-31-2024 10:15-0500 Systolic blood uuzujhfn14 mm[Hg]Sandra Keita DO Work Phone: 1(070)[address] [place], [place] 0330312-30-2024 14:29-0500 Body lovgnm691.18 cmGloria Keita DO Work Phone: 1(673)[address] [place] 0330312-30-2024 14:29-0500 Body kisqntbpciq76 [degF]Sandra Keita DO Work Phone: 1(672)[address] [place] 0330312-30-2024 14:29-0500 Body aucsap15.71 kgGloria Keita DO Work Phone: 1(935)[address] [place], [place] 0330312-30-2024 14:29-0500 Diastolic blood dzwxqymx94 mm[Hg]Sandra Keita DO Work Phone: 1(102)[address] [place], [place] 0330312-30-2024 14:29-0500 Heart rate80 /minGloria Keita DO Work Phone: 1(841)[address] [place] 0330312-30-2024 14:29-0500 Respiratory rate18 /minGloria Keita DO Work Phone: 1(388)[address] [place] 0330312-30-2024 14:29-0500 SaO2% (BldA) [Mass fraction]93 %Sandra Keita DO Work Phone: 1(447)[address] [place] 0330312-30-2024 14:29-0500 Systolic blood isuqaggs886 mm[Hg]Sandra Keita DO Work Phone: 1(059)[address] [place] 0330312-17-2024 09:35-0500 Body ybljrh027.18 cmGloria Keita DO Work Phone: 1(372)[address] [place], [place] 0330312-17-2024 09:35-0500 Body mass index (BMI) [Ratio]32.1 kg/o8Gyligg Ketia DO Work Phone: 1(605)[address] [place], [place] 0330312-17-2024 09:35-0500 Body [degF]Sandra Keita DO Work Phone: 1(213)[facility] [place], [place] 1281212-17-2024 09:35-0500 Body osaska84.98 kgGloria Keita DO Work Phone: 1(365)[address] [place] 0330312-17-2024 09:35-0500 Diastolic blood wkhmaetw69 mm[Hg]Sandra Keita DO Work Phone: 1(140)[address] [place], [place] 0330312-17-2024 09:35-0500 Heart rate78 /minGloria Keita DO Work Phone: 1(915)[address] [place] 0330312-17-2024 09:35-0500 Respiratory rate20 /minGloria Keita DO Work Phone: 1(146)[address] [place] 0330312-17-2024 09:35-0500 SaO2% (BldA) [Mass fraction]98 %Sandra Keita DO Work Phone: 1(518)[address] [place] 0330312-17-2024 09:35-0500 Systolic blood babpdwxi786 mm[Hg]Sandra Keita DO Work Phone: 1(780)[address] [place], [place] 0330312-10-2024 13:26-0500 Body qrityl469.2 cmOz Kincaid MD Work Phone: [facility] CenterFtxgyxkixp08-74-4874 13:26-0500Body mass index (BMI) [Ratio]31.32 kg/m2Oz Kincaid MD Work Phone: [facility] CenterSmzawohuxe89-14-7295 13:26-0500Body kywbkt78.72 kgOz Kincaid MD Work Phone: [facility] CenterMgxkdimekx05-44-6352 13:42-0500Body qzqnah678.2 cmRoland Faust MD Work Phone: [facility]11-27-2024 13:42-0500 Body mass index (BMI) [Ratio]32.58 kg/k4PpadsnoRoland Faust MD Work Phone: [facility]11-27-2024 13:42-0500 Body ptewhd30.35 kgRoland Faust MD Work Phone: [facility]11-27-2024 13:42-0500 Diastolic blood xrncfayk51 mm[Hg]Roland Faust MD Work Phone: [facility]11-27-2024 13:42-0500 Heart rate63 /minRoland Faust MD Work Phone: [facility]11-27-2024 13:42-0500 Systolic blood ubetxhsi202 mm[Hg]Roland Faust MD Work Phone: [facility]10-29-2024 13:55-0400 Body nazatf372.2 cmOz Kincaid MD Work Phone: 1(486)104-[address] [place], [place] [address]Hhmzbxhlfq72-07-9696 13:55-0400Body mass index (BMI) [Ratio]31.32 kg/m2Oz Kincaid MD Work Phone: 1(817)277-[address] [place], [place] [address]Euxitkfimv22-11-9614 13:55-0400Body zsdexr15.72 kgOz Kincaid MD Work Phone: 8(944)577-[address] [place], [place] [address]Qatkvjelcb00-45-2432 13:55-0400Diastolic blood mm[Hg]Oz Kincaid MD Work Phone: 0(698)817-[address] [place], [place] [address]Fqajwettyp39-04-5184 13:55-0400Heart rate74 /min Oz Kincaid MD Work Phone: [place] [address]Mvbcxjwnlx10-13-9050 13:55-0400Systolic blood gafxjawh626 mm[Hg]Oz Kincaid MD Work Phone: 4(225)417-[address] [place], [place] [address]Mbjyxbnduj18-74-1082 13:23-0400Body .18 cmGloria Debbie DO Work Phone: [facility]10-18-2024 13:23-0400 Body xfuxmr83.71 kgGloria Keita DO Work Phone: 1(201)[address] [place], [place] 0330310-07-2024 11:56-0400 Body gwsaug878.18 cmDO Sandra Keita Work Phone: 1(144)[address] [place], [place] 0330310-07-2024 11:56-0400 Body mass index (BMI) [Ratio]31.6 kg/m2DO Sandrarebecca Keita Work Phone: 1(707)[address] [place], [place] 0330310-07-2024 11:56-0400 Body qbnrxo26.62 kgDO Sandrarebecca Keita Work Phone: 1(368)[address] [place] 0330310-07-2024 11:56-0400 Diastolic blood kpafjiat10 mm[Hg]DO Sandrarebecca Keita Work Phone: 1(623)[address] [place], [place] 0330310-07-2024 11:56-0400 Heart rate63 /minDO Sandra Debbie Work Phone: 1(771)[address] [place], [place] 0330310-07-2024 11:56-0400 Respiratory rate18 /minDO Sandrarebecca Keita Work Phone: 1(183)[address] [place], [place] 0330310-07-2024 11:56-0400 SaO2% (BldA) [Mass fraction]98 %DO Sandra Keita Work Phone: 1(053)[address] [place], [place] 0330310-07-2024 11:56-0400 Systolic blood utglmbuj113 mm[Hg]DO Sandra Keita Work Phone: 1(854)[address] [place], [place] 0330309-18-2024 15:38-0400 Body updnwd851.18 cmDO Sandrarebecca Keita Work Phone: 1(024)[address] [place], [place] 0330309-18-2024 15:38-0400 Body mass index (BMI) [Ratio]31.3 kg/m2DO Sandrarebecca Keita Work Phone: 1(241)[address] [place], [place] 0330309-18-2024 15:38-0400 Body aalzop60.77 kgDO Sandrarebecca Keita Work Phone: [facility]09-10-2024 13:18-0400 Body byticd129.2 cmOz Kincaid MD Work Phone: [facility] CenterGzhvsqmdxh07-45-9276 13:18-0400Body mass index (BMI) [Ratio]31.32 kg/m2Oz Kincaid MD Work Phone: [facility] CenterStwzmozmrt89-97-0646 13:18-0400Body virivi24.72 kgOz Kincaid MD Work Phone: 1(461)218-[address] [place], [place] [address]Hjylyjmcdr69-75-0232 13:18-0400Diastolic blood mm[Hg]Oz Kincaid MD Work Phone: 4(623)627-[address] [place], [place] [address]Tpctkaqxqv73-77-6539 13:18-0400Heart rate62 /min Oz Kincaid MD Work Phone: 1(360)350-[address] [place], [place] [address]Fzobydzzgo39-51-8857 13:18-0400Systolic blood dtsoliha779 mm[Hg]Oz Kincaid MD Work Phone: 7(556)162-[address] [place], [place] [address]Erytauhedy34-79-4620 10:40-0400Body uodnfb240.2 cmRoland Faust MD Work Phone: [facility]08-19-2024 10:40-0400 Body mass index (BMI) [Ratio]30.48 kg/w3GoerqrkRoland Faust MD Work Phone: [facility]08-19-2024 10:40-0400 Body xwyskk39.27 kgRoland Faust MD Work Phone: [facility]08-19-2024 10:40-0400 Diastolic blood kstzyhey89 mm[Hg]Roland Faust MD Work Phone: 1(136)328-[address] [place], [place] 1980608-19-2024 10:40-0400 Heart rate73 /minRoland Faust MD Work Phone: [facility]08-19-2024 10:40-0400 Systolic blood bandanhm290 mm[Hg]Roland Faust MD Work Phone: [facility]07-22-2024 13:14-0400 Body wiujrs845.18 cmDO Sandrarebecca Keita Work Phone: 1(112)[address] [place], [place] 0330307-22-2024 13:14-0400 Body mass index (BMI) [Ratio]28.6 kg/m2DO Sandra Debbie Work Phone: 1(794)[address] [place], [place] 0330307-22-2024 13:14-0400 Body ryyonj96 kgDO Sandrarebecca Keita Work Phone: 1(890)[address] [place] 0330307-22-2024 13:14-0400 Diastolic blood ofjfkaar06 mm[Hg]DO Sandrarebecca Keita Work Phone: 1(022)[address] [place], [place] 0330307-22-2024 13:14-0400 Heart rate54 /minDO Sandra Debbie Work Phone: 1(792)[address] [place], [place] 0330307-22-2024 13:14-0400 Respiratory rate18 /minDO Sandrarebecca Keita Work Phone: 1(487)[address] [place] 0330307-22-2024 13:14-0400 SaO2% (BldA) [Mass fraction]97 %DO Sandra Keita Work Phone: 1(694)[address] [place] 0330307-22-2024 13:14-0400 Systolic blood nonnwrpf03 mm[Hg]DO Sandrarebecca Keita Work Phone: 1(944)[address] [place], [place] 0330307-18-2024 15:07-0400 Body wvwyyp011.18 cmDO Sandra Debbie Work Phone: 1(138)[address] [place] 0330307-18-2024 15:07-0400 Body mass index (BMI) [Ratio]28.5 kg/m2DO Sandra Debbie Work Phone: 1(256)[address] [place] 0330307-18-2024 15:07-0400 Body .8 kgDO Sandra Debbie Work Phone: [facility]07-18-2024 15:07-0400 Diastolic blood otpvhklp80 mm[Hg]DO Sandra Keita Work Phone: 1(861)3-[address] [place], [place] 1281207-18-2024 15:07-0400 Heart rate67 /minDO Sandrarebecca Keita Work Phone: 1(014)[address] [place], [place] 0330307-18-2024 15:07-0400 Respiratory rate18 /minDO Sandra Debbie Work Phone: 1(380)[address] [place], [place] 0330307-18-2024 15:07-0400 SaO2% (BldA) [Mass fraction]97 %DO Sandra Keita Work Phone: 1(473)[address]07-18-2024 15:07-0400 Systolic blood wpqipnut265 mm[Hg]DO Sandra Keita Work Phone: 1(985)[address] [place], [place] 0330307-17-2024 13:54-0400 Body ingvdr945.2 cmJonas Ch MD Work Phone: 1(880)841-[address] [place], [place] 1980607-17-2024 13:54-0400 Body mass index (BMI) [Ratio]28.19 kg/t8XpthbqmJonas Ch MD Work Phone: 8(767)201-40[facility]07-17-2024 13:54-0400 Body duejzx16.65 kgJonas Ch MD Work Phone: 1(203)565-[address] [place], [place] 1980607-17-2024 13:54-0400 Diastolic blood kyfmojzl53 mm[Hg]Jonas Ch MD Work Phone: 6(548)369-[address] [place], [place] 1980607-17-2024 13:54-0400 Heart rate87 /minJonas Ch MD Work Phone: 5(082)739-[address] [place], [place] 1980607-17-2024 13:54-0400 Systolic blood bjahmktj028 mm[Hg]Jonsa Ch MD Work Phone: 3(639)299-[address] [place], [place] 1980607-16-2024 16:12-0400 Diastolic blood rodxnuoc07 mm[Hg]DO Sandra Debbie Work Phone: 1(529)[address] [place] 0330307-16-2024 16:12-0400 Heart rate61 /minDO Sandra Keita Work Phone: 1(264)[address] [place], [place] 0330307-16-2024 16:12-0400 Respiratory rate16 /minDO Sandra Keita Work Phone: 1(529)[address] [place] 0330307-16-2024 16:12-0400 SaO2% (BldA) [Mass fraction]96 %DO Sandra Keita Work Phone: 1(113)[address] [place] 0330307-16-2024 16:12-0400 Systolic blood iyznchke646 mm[Hg]DO Sandra Keita Work Phone: 1(330)[address] [place] 0330307-16-2024 12:16-0400 Body evxgmwxbcpr78.5 [degF]DO Sandra Debbie Work Phone: 1(643)[address] [place], [place] 0330307-16-2024 06:00-0400 Body sybzvl90.5 kgDO Sandrarebecca Keita Work Phone: 1(635)[address] [place], [place] 0330307-14-2024 08:23-0400 Body .18 cmDO Sandra Keita Work Phone: 1(964)[address] [place], [place] 0330307-14-2024 05:05-0400 Diastolic blood wmkebzet55 mm[Hg]DO Sandra Debbie Work Phone: 1(830)[address] [place] 0330307-14-2024 05:05-0400 Heart rate62 /minDO Sandra Keita Work Phone: 1(657)[address] [place] 0330307-14-2024 05:05-0400 Respiratory rate18 /minDO Sandra Keita Work Phone: 1(574)[address] [place] 0330307-14-2024 05:05-0400 SaO2% (BldA) [Mass fraction]100 %DO Sandra Keita Work Phone: 1(214)958-[address] [place], [place] 1281207-14-2024 05:05-0400 Systolic blood mm[Hg]DO Sandra Keita Work Phone: 1(732)[address]07-14-2024 03:44-0400 Body nlzaeocupcn90.1 [degF]DO Sandra Keita Work Phone: 1(686)[address] [place] 0330307-13-2024 22:16-0400 Body bdgfle527.18 cmDO Sandra Keita Work Phone: 1(053)[address] [place] 0330307-13-2024 22:16-0400 Body knauyr11.64 kgDO Sandra Keita Work Phone: 1(311)[address] [place] 0330307-09-2024 12:36-0400 SaO2% (BldA) [Mass fraction]100 %DO Sandra Keita Work Phone: 1(009)[address] [place] 0330306-10-2024 09:48-0400 Body jufkcv540.2 cmJonas Ch MD Work Phone: [facility]06-10-2024 09:48-0400 Body mass index (BMI) [Ratio]28.19 kg/m3JnkvcqkJonas Ch MD Work Phone: 2(830)900-29[facility]06-10-2024 09:48-0400 Body gzhydf33.65 kgJonas Ch MD Work Phone: [facility]06-10-2024 09:48-0400 Diastolic blood oqwhjjbk98 mm[Hg]Jonas Ch MD Work Phone: [facility]06-10-2024 09:48-0400 Heart rate92 /minJonas Ch MD Work Phone: [facility]06-10-2024 09:48-0400 Systolic blood aqkknxjp980 mm[Hg]Jonas Ch MD Work Phone: [address] [place], [place] 5085305-21-2024 13:02-0400 Body .64 cmDO Sandrarebecca Keita Work Phone: 1(309)[address] [place] 0330305-21-2024 13:02-0400 Body mass index (BMI) [Ratio]29 kg/m2DO Sandrarebecca Keita Work Phone: 1(117)[address] [place] 0330305-21-2024 13:02-0400 Body detnqw65.67 kgDO Sandrarebecca Keita Work Phone: 1(513)[address] [place] 0330305-21-2024 13:02-0400 Diastolic blood meqatwed77 mm[Hg]DO Sandra Debbie Work Phone: 1(808)[address] [place], [place] 0330305-21-2024 13:02-0400 Heart wnuk818 /minDO Sandra Keita Work Phone: 1(718)[address] [place] 0330305-21-2024 13:02-0400 Respiratory rate18 /minDO Sandra Debbie Work Phone: 1(221)[address] [place] 0330305-21-2024 13:02-0400 SaO2% (BldA) [Mass fraction]99 %DO Sandra Debbie Work Phone: 1(796)[address] [place] 0330305-21-2024 13:02-0400 Systolic blood mclnyoor96 mm[Hg]DO Sandra Debbie Work Phone: 1(644)[address] [place], [place] 0330305-18-2024 16:11-0400 Body cnglxenngwu26.7 [degF]DO Sandra Debbie Work Phone: 1(073)[address] [place] 0330305-18-2024 16:11-0400 Diastolic blood guksclvu82 mm[Hg]DO Sandra Debbie Work Phone: 1(168)[address] [place], [place] 0330305-18-2024 16:11-0400 Heart rate74 /minDO Sandra Keita Work Phone: 1(808)[address] [place] 0330305-18-2024 16:11-0400 Respiratory rate17 /minDO Sandra Debbie Work Phone: 1(926)[address] [place] 0330305-18-2024 16:11-0400 SaO2% (BldA) [Mass fraction]95 %DO Sandra Dbebie Work Phone: 1(103)[address] [place] 0330305-18-2024 16:11-0400 Systolic blood vfxusvdq688 mm[Hg]DO Sandrarebecca Keita Work Phone: 1(332)[address] [place], [place] 0330305-18-2024 06:00-0400 Body pkomxk87.2 kgDO Sandrarebecca Keita Work Phone: 1(785)[address] [place], [place] 0330305-17-2024 12:41-0400 Body lnpzig490.18 cmDO Sandrarebecca Keita Work Phone: 1(427)[address] [place], [place] 0330305-16-2024 13:58-0400 Body ippagw121.64 cmDO Sandrarebecca Keita Work Phone: 1(667)[address] [place], [place] 0330305-16-2024 13:58-0400 Body mass index (BMI) [Ratio]29 kg/m2DO Sandra Keita Work Phone: 1(237)[address] [place], [place] 0330305-16-2024 13:58-0400 Body .64 kgDO Sandrarebecca Keita Work Phone: 1(045)[address] [place], [place] 0330305-16-2024 13:58-0400 Diastolic blood ceietsix74 mm[Hg]DO Sandrarebecca Keita Work Phone: 1(360)[address] [place], [place] 0330305-16-2024 13:58-0400 Heart cibg309 /minDO Sandra Debbie Work Phone: 1(778)[address] [place], [place] 0330305-16-2024 13:58-0400 Respiratory rate18 /minDO Sandra Debbie Work Phone: 1(659)[address] [place] 0330305-16-2024 13:58-0400 SaO2% (BldA) [Mass fraction]97 %DO Sandrarebecca Keita Work Phone: [facility]05-16-2024 13:58-0400 Systolic blood ehagnzse560 mm[Hg]DO Sandra Keita Work Phone: [facility]03-20-2024 11:43-0400 Body gyvpcj197.64 [facility]03-20-2024 11:43-0400Body mass index (BMI) [Ratio]28.8 kg/r8VrhnoyocyL[facility]03-20-2024 11:43-0400Body cmpconjmemd05.8 [degF][facility]03-20-2024 11:43-0400Body .19 [facility]03-20-2024 11:43-0400Diastolic blood mm[Hg][facility] 07-17-2023 11:43-0400Heart rate78 /[facility] 07-17-2023 11:43-0400Respiratory rate16 /[facility] 07-17-2023 11:43-2638UyL4% (BldA) [Mass fraction]98 %[facility]03-20-2024 11:43-0400Systolic blood mm[Hg][facility]02-21-2024 15:53-0500Body wcozcy899.64 cmL[facility]02-21-2024 15:53-0500Body mass index (BMI) [Ratio]28.9 kg/m2 [facility]02-21-2024 15:53-0500Body gpyyts86.33 kg [facility]02-21-2024 15:53-0500Diastolic blood mm[Hg][facility]02-21-2024 15:53-0500Heart rate95 /min [facility]02-21-2024 15:53-0500Respiratory rate18 /min [facility]02-21-2024 15:53-8490UoL5% (BldA) [Mass fraction]97 %[facility]02-21-2024 15:53-0500Systolic blood mm[Hg][facility]02-14-2024 15:38-0500 Body yrehlr581.64 cmL[facility]02-14-2024 15:38-0500Body mass index (BMI) [Ratio]28.5 kg/b2DnnewgckoLancaster Municipal Hospital02-14-2024 15:38-0500Body cmhelp15.28 kgL[facility]02-14-2024 15:38-0500Diastolic blood rmuuukeg38 mm[Hg][facility] 06-12-2023 15:38-0500Heart rate95 /[facility] 06-12-2023 15:38-0500Respiratory rate18 /[facility] 06-12-2023 15:38-0474JhH5% (BldA) [Mass fraction]99 %[facility]02-14-2024 15:38-0500Systolic blood mm[Hg][facility]11-06-2023 15:00-0500Body fwomhi108.64 cmSandra eKita Other [employer] Other 11-06-2023 15:00-0500Body mass index (BMI) [Ratio] 29.97 kg/p6IaictbSandra Keita Other [employer] Other 11-06-2023 15:00-0500Body fymuot19.23 kgSandra Keita Other [employer] Other [id number] 15:00-0500Diastolic blood hnipxvcq33 mm[Hg] Sandra Debbie Other [employer] Other 11-06-2023 15:00-0500Respiratory rate18 /minGlsenait Keita Other [employer] Other 11-06-2023 15:00-0800JlO1% (BldA) [Mass fraction]96 % Sandra Debbie Other [employer] Other 11-06-2023 15:00-0500Systolic blood mm[Hg] Sandra Debbie Other [employer] Other 09-11-2023 14:00-0400Body ylsoug285.64 cmTondra Mapus Other [employer] Other 09-11-2023 14:00-0400Body mass index (BMI) [Ratio] 30.03 kg/f1Gedpqh Mapus Other [employer] Other 09-11-2023 14:00-0400Body wqnvam76.41 kgTondra Mapus Other [employer] Other 09-11-2023 14:00-0400Diastolic blood kcbkavqh25 mm[Hg] Tondra Mapus Other [employer] Other 09-11-2023 14:00-0400Respiratory rate18 /minTondra Mapus Other [employer] Other 09-11-2023 14:00-2467BkT1% (BldA) [Mass fraction]98 % Tondra Mapus Other [employer] Other 09-11-2023 14:00-0400Systolic blood ibsewajg848 mm[Hg] Tondra Mapus Other [employer] Other 09-06-2023 11:00-0400Body eruouy854.64 Rob Noble Other [employer] Other 09-06-2023 11:00-0400Body mass index (BMI) [Ratio]29.7 kg/b8IrdktwrlBrayden Noble Other [employer] Other 09-06-2023 11:00-0400Body .46 kgLafavian Noble Other [employer] Other 09-06-2023 11:00-0400Diastolic blood dkteambl89 mm[Hg] Brayden Noble Other [employer] Other 09-06-2023 11:00-0400Systolic blood shxzuvkd551 mm[Hg] Brayden Noble Other [employer] Other 08-02-2023 15:00-0400Body .64 cmSandra Keita Other [employer] Other 08-02-2023 15:00-0400Body mass index (BMI) [Ratio] 29.58 kg/o9RvnmdrSandra Keita Other [employer] Other 08-02-2023 15:00-0400Body .14 kgSandra Keita Other [employer] Other 08-02-2023 15:00-0400Diastolic blood siggbcos67 mm[Hg] Sandra Keita Other [employer] Other 08-02-2023 15:00-0400Respiratory rate20 /minSandra Keita Other [employer] Other 08-02-2023 15:00-5631TkL8% (BldA) [Mass fraction]99 % Sandra Keita Other [employer] Other 08-02-2023 15:00-0400Systolic blood uwewxusi004 mm[Hg] Sandra Debbie Other [employer] Other 06-01-2023 14:15-0400Body aiujzq132.64 cmTondra Mapus Other [employer] Other 06-01-2023 14:15-0400Body mass index (BMI) [Ratio] 29.53 kg/u8Nwnrzi Mapus Other [employer] Other 06-01-2023 14:15-0400Body hqmlew06.01 kgTondra Mapus Other [employer] Other 06-01-2023 14:15-0400Diastolic blood stixrsyc28 mm[Hg] Tondra Mapus Other [employer] Other 06-01-2023 14:15-0400Respiratory rate18 /minTondra Mapus Other [employer] Other 06-01-2023 14:15-2991RaF3% (BldA) [Mass fraction]97 % Tondra Mapus Other [employer] Other 06-01-2023 14:15-0400Systolic blood ylkoefhm162 mm[Hg] Tondra Mapus Other [employer] Other 04-13-2023 16:15-0400Body wfzzue678.64 cmGloria Keita Other [employer] Other 04-13-2023 16:15-0400Body mass index (BMI) [Ratio] 29.86 kg/e6Ctznmrsenait Keita Other [employer] Other 04-13-2023 16:15-0400Body .92 kgGlsenait Keita Other [employer] Other 04-13-2023 16:15-0400Diastolic blood oxulmtga41 mm[Hg] Sandrarebecca Keita Other [employer] Other 04-13-2023 16:15-0400Respiratory rate18 /minGlsenait Keita Other [employer] Other 04-13-2023 16:15-0221FuY7% (BldA) [Mass fraction]97 % Sandrajacob Keita Other [employer] Other 04-13-2023 16:15-0400Systolic blood pudkdhmq796 mm[Hg] Sandra Debbie Other [employer] Other 02-20-2023 15:30-0500Body fgrguz170.64 cmTondra Yvonne Other [employer] Other 02-20-2023 15:30-0500Body mass index (BMI) [Ratio] 35.34 kg/f4Qwmwyi Mapus Other [employer] Other 02-20-2023 15:30-0500Body osrehc35.34 kgTondra Mapus Other [employer] Other 02-20-2023 15:30-0500Diastolic blood dftixbvq76 mm[Hg] Tondra Mapus Other [employer] Other 02-20-2023 15:30-0500Respiratory rate18 /minTondra Mapus Other [employer] Other 02-20-2023 15:30-2481VpE7% (BldA) [Mass fraction]97 % Tondra Mapus Other [employer] Other 02-20-2023 15:30-0500Systolic blood cqebazvr178 mm[Hg] Tondra Mapus Other [employer] Other 09-13-2022 14:00-0400Body drilti609.64 cmTondra Mapus Other [employer] Other 09-13-2022 14:00-0400Body mass index (BMI) [Ratio] 28.73 kg/x5Ahqfmc Mapus Other [employer] Other 09-13-2022 14:00-0400Body bgvalv44.74 kgTondra Mapus Other [employer] Other 09-13-2022 14:00-0400Diastolic blood zczcrhta06 mm[Hg] Tondra Mapus Other [employer] Other 09-13-2022 14:00-0400Respiratory rate16 /minTondra Mapus Other [employer] Other 09-13-2022 14:00-7579VhW0% (BldA) [Mass fraction]97 % Tona Leonardous Other [employer] Other 09-13-2022 14:00-0400Systolic blood wbjyahqx630 mm[Hg] Tondra Leonardous Other [employer] Other 08-21-2022 08:23-0400Diastolic blood joepkznj30 mm[Hg] DO [facility]08-21-2022 08:23-0400Heart rate82 /minDO [facility]08-21-2022 08:23-0400Respiratory rate18 /minDO [facility]08-21-2022 08:23-5458EwT2% (BldA) [Mass fraction]98 %DO [facility]08-21-2022 08:23-0400Systolic blood mm[Hg]DO [facility]08-21-2022 05:29-0400 Body luwwxn351.18 cmDO [facility] 12-17-2021 05:29-0400Body ayhzbvgrnqk63.4 [degF]DO [facility]08-21-2022 05:29-0400Body djlcag16.55 kgDO [facility]08-18-2022 06:58-0400Body dinvmf340.18 cmDO [facility]08-18-2022 06:58-0400Body mass index (BMI) [Ratio]29.2 kg/m2DO [facility]08-18-2022 06:58-0400Body aqyphp15.8 kgDO [facility]08-17-2022 11:06-0400Body volbylyxddb63.7 [degF]DO Tray [facility]08-17-2022 11:06-0400Diastolic blood tytoafio15 mm[Hg]DO [facility] 12-13-2021 11:06-0400Heart rate88 /minDO [facility]08-17-2022 11:06-0400Respiratory rate16 /minDO Tray [facility]08-17-2022 11:06-2791KzM6% (BldA) [Mass fraction]93 %DO [facility]08-17-2022 11:06-0400Systolic blood mm[Hg]DO [facility]08-17-2022 08:00-0400Inhaled oxygen flow rate3 L/minDO [facility]06-16-2022 11:00-0400Body svwehb675.64 cmCrispin Looney Other [employer] Other 06-16-2022 11:00-0400Body mass index (BMI) [Ratio] 29.81 kg/i3WqvdkCrispin Looney Other [employer] Other 06-16-2022 11:00-0400Body .78 kgAvnisonny Looney Other [employer] Other 06-16-2022 11:00-0400Diastolic blood vyfpynhu51 mm[Hg] Crispin Aayush Other [employer] Other 06-16-2022 11:00-0400Respiratory rate18 /minCrispin Looney Other [employer] Other 06-16-2022 11:00-1393FvL6% (BldA) [Mass fraction]97 % Crispin Looney Other [employer] Other 06-16-2022 11:00-0400Systolic blood remimgqo97 mm[Hg] Crispin Looney Other [employer] Other 03-14-2022 14:30-0400Body jhwylq866.64 cmTondra Mapus Other [employer] Other 03-14-2022 14:30-0400Body mass index (BMI) [Ratio] 30.34 kg/n0Xzslls Mapus Other [employer] Other 03-14-2022 14:30-0400Body ocipcw04.28 kgTondra Mapus Other [employer] Other 03-14-2022 14:30-0400Diastolic blood azjyxmci96 mm[Hg] Tondra Mapus Other [employer] Other 03-14-2022 14:30-0400Respiratory rate16 /minTondra Mapus Other [employer] Other 03-14-2022 14:30-2429TeA6% (BldA) [Mass fraction]97 % Tondra Mapus Other [employer] Other 03-14-2022 14:30-0400Systolic blood ireuqfza18 mm[Hg] Tondra Mapus Other [employer] Other 03-07-2022 16:00-0500Body yimnbm502.64 cmKanatalie Avendañoracquel Other [employer] Other 03-07-2022 16:00-0500Body mass index (BMI) [Ratio]30.5 kg/b5UrvbtRuben Hahn Other [employer] Other 03-07-2022 16:00-0500Body esfqjkhifda42.5 [degF]Ruben Hahn Other [employer] Other 03-07-2022 16:00-0500Body idqbhj41.73 kgRuben Hahn Other [employer] Other 03-07-2022 16:00-0500Diastolic blood sccfcvku48 mm[Hg] Ruben Hahn Other [employer] Other 03-07-2022 16:00-3514VeJ4% (BldA) [Mass fraction]99 % Ruben Hahn Other [employer] Other 03-07-2022 16:00-0500Systolic blood uotlraii81 mm[Hg] Ruben Hahn Other [employer] Other 01-10-2022 14:15-0500Body .64 cmAvnisonny Looney Other [employer] Other 01-10-2022 14:15-0500Body mass index (BMI) [Ratio] 30.87 kg/u3Ebdinsonny Looney Other [employer] Other 01-10-2022 14:15-0500Body philpi70.77 kgCrispin Aayush Other [employer] Other 01-10-2022 14:15-0500Diastolic blood jomjxegk75 mm[Hg] Crispin Looney Other [employer] Other 01-10-2022 14:15-0500Respiratory rate20 /minCrispin Looney Other [employer] Other 01-10-2022 14:15-9761NyZ9% (BldA) [Mass fraction]98 % Crispin Looney Other [employer] Other 01-10-2022 14:15-0500Systolic blood cqogavxf650 mm[Hg] Crispin Looney Other [employer] Other 12-06-2021 15:00-0500Body tvliwy917.64 cmMattnorth Nava Other [employer] Other 12-06-2021 15:00-0500Body mass index (BMI) [Ratio] 30.99 kg/j6Wrmydammonserrat Nava Other [employer] Other 12-06-2021 15:00-0500Body vpxtznnixrs55.3 [degF] Tray Nava Other [employer] Other 12-06-2021 15:00-0500Body onkbgu74.09 kgMattnorth Nava Other [employer] Other 12-06-2021 15:00-0500Diastolic blood mvojfbwh40 mm[Hg] Tray Nava Other [employer] Other 12-06-2021 15:00-6293WeH7% (BldA) [Mass fraction]93 % Tray Ceballospratibha Other [employer] Other 12-06-2021 15:00-0500Systolic blood mm[Hg] Tray Ceballospratibha Other [employer] Other 11-29-2021 15:00-0500Body htzvzo560.64 cmTondra Mapus Other [employer] Other 11-29-2021 15:00-0500Body mass index (BMI) [Ratio] 30.99 kg/w8Evebdq Mapus Other [employer] Other 11-29-2021 15:00-0500Body xwlquu47.09 kgTondra Mapus Other [employer] Other 11-29-2021 15:00-0500Diastolic blood yteaasjl43 mm[Hg] Tondra Mapus Other [employer] Other 11-29-2021 15:00-0500Respiratory rate20 /minTondra Mapus Other [employer] Other 11-29-2021 15:00-4764OtH9% (BldA) [Mass fraction]97 % Tondra Mapus Other [employer] Other 11-29-2021 15:00-0500Systolic blood tfoefplx050 mm[Hg] Tondra Mapus Other [employer] Other 11-01-2021 16:00-0400Body bdfdaq558.64 cmMamonserrat Nava Other [employer] Other 11-01-2021 16:00-0400Body mass index (BMI) [Ratio] 30.66 kg/i5RjqezgvTray Nava [facility] Other 11-01-2021 16:00-0400Body jgeryq33.18 kgMattnorth Nava Other [facility] [employer] Other 11-01-2021 16:00-0400Diastolic blood ipwaqolu59 mm[Hg] Tray Ceballospratibha Other [facility] [employer] Other 11-01-2021 16:00-0400Systolic blood cxlwdveb274 mm[Hg] Tray Ceballospratibha Other [facility] [employer] Other 05-01-2018 12:01-0400Body mezddy199.18 cmDO Jonas Yoder Work Phone: [facility] Encounters Encounter DateEncounter TypeCare ProviderFacilityStart: 03-10-2025 End: 53-80-5451mtxxeioxtgBJNXQWDFabián YODERFacility:[facility] Start: 03-10-2025 End: 01-72-4736logtgabuvfJVKQCHGC LEE KUZNICKIFacility:[facility] Start: 21-50-5167Ltbjsefmg for other preprocedural examinationMICHELHOLLY DOTSONDayton Osteopathic HospitalStart: 02-28-2025 End: 17-56-5144DmikrpOdea D Bej MD Work Phone: NOFormerly [facility] 111Comment on above: Neurogenic painStart: 02-09-2025 End: 66-70-3968Eniqkz outpatient visit 15 minutesLinwood Irwin MD Work Phone: NONJ [place] OBGYNComment on above:Encounter for gynecological examination; Vaginal lesionStart: 02-09-2025 End: 86-18-0271Avjirog encounter statusLinwood Irwin MD Work Phone: [facility] HealthcareStart: 02-09-2025 End: 21-44-6446ylzmkmbrocGTOWOA P JONESNot AvailableStart: 02-02-2025 End: 40-52-1266Mwjhmz OnlyLinwood Irwin MD Work Phone: [facility] External Department UnsolicitedStart: 02-02-2025 End: 27-35-7645Hwwtnp outpatient visit 10 minutesLinwood Irwin MD Work Phone: noNJ [facility] OBGYNComment on above:Encounter for gynecological examination; Vaginal lesion; Encounter for gynecological examination without abnormal finding; Encounter for screening for cervical cancer; Breast cancer screening by mammogramStart: 02-02-2025 End: 63-29-8254Xgjfuwd encounter statusLinwood Irwin MD Work Phone: noN[place] HealthcareStart: 02-02-2025 End: 22-29-2963Imlyfxu encounter procedureShantel Norton APRN [facility] [facility]-CT Scan [facility] [place] Work Phone: Start: 02-02-2025 End: 06-83-4853hglljmasriZxfujljw Rohrbacher APRN Work Phone: [facility] Work Phone: Start: 01-19-2025 End: 67-90-4980ptyanydylaHLOY D BEJNot AvailableStart: 01-19-2025 End: 22-43-5671Jcsdoo outpatient visit 15 minutesOz Kincaid MD Work Phone: noN[place] [facility]winY[facility] NeurologyComment on above: Weakness of both lower extremities (Primary Dx); Carpal tunnel syndrome, bilateral; Cognitive decline; Cervical paraspinal muscle spasm; B12 deficiency; Guyon syndrome, unspecified lateralityStart: 01-19-2025 End: 96-89-0858Chhyjo flowsheetOz Kincaid MD Work Phone: noms BM NEUROLOGYStart: 01-19-2025 End: 97-08-7692Vxeolh flowsheetOz Kincaid MD Work Phone: noms BM NEUROLOGYStart: 01-12-2025 End: 88-62-4482nkgvwyhqpvMcjxeota Cierra GODDARD Work Phone: [facility] Work Phone: Start: 01-12-2025 End: 86-32-1252Azevmjl encounter procedureShantel Norton APRN [facility] Work Phone: Start: 01-05-2025 End: 45-32-8311dskbwjehmpDgnmlybw Rohrbacher APRN Work Phone: [facility] Work Phone: Start: 01-05-2025 End: 50-72-2935Splpdcw encounter procedureAngelique Russell [facility] Work Phone: Start: 12-31-2024 End: 74-81-9179irfgvbxaeaDPIH D BEJNot AvailableStart: 35-47-8255Kvt-patient / Non-visitDarasta Medina MD-[facility] Sleep [facility] Work Phone: Start: 12-30-2024 End: 05-45-7182Zthbrg outpatient visit 15 minutesMolurdes Faust MD Work Phone: [facility] HospitalComment on above:Typical atrial flutter (Multi) (Primary Dx); Nonischemic cardiomyopathy (Multi); Hypertension, unspecified type; Hypercholesteremia; Obesity (BMI 30-39.9); Current smokerStart: 12-30-2024 End: 31-23-1602siamzqjnwcOYQOYTDSamaritan Medical Center AmbulatoryStart: 12-24-2024 End: 21-40-0357Nifcplo encounter procedureSamm Medina MD-Sleep Lab Work Phone: Start: 12-24-2024 End: 99-47-3314ggsshkzeayIpwczo A Cydan Work Phone: [facility] Work Phone: Start: 12-18-2024 End: 59-44-7109Vzxykzz encounter Lenore Kincaid MD Work Phone: [facility] NeurologyComment on above: Numbness (Primary Dx); Paresthesias; Pain in both lower extremities; Lumbosacral radiculopathy at H9Ocrvd: 12-18-2024 End: 70-88-9933qhyvravsmeCLXH D BEJNot AvailableStart: 12-15-2024 End: 40-78-3434elhiwfddjxKryzpb A Cydan Work Phone: [facility] Work Phone: Start: 12-15-2024 End: 30-23-7204Uemdxqb encounter procedureShantel Norton APRN [facility] Work Phone: Start: 12-11-2024 End: 00-16-5171zogjddanrrYGFV D BEJNot AvailableStart: 12-11-2024 End: 05-64-7611Kriohiu encounter Lenore Kincaid MD Work Phone: n[facility] NeurologyComment on above: Hand weakness (Primary Dx); Carpal tunnel syndrome, bilateralStart: 11-23-2024 End: 03-43-7528Xdxmub outpatient visit 15 minutesKarl Fritz DPM Work Phone: NOM[facility] PodiatryComment on above:Ulcer of right foot with fat layer exposed (HCC) (Primary Dx); 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); Abscess of right foot; At increased risk for emergency hospital admissionStart: 11-23-2024 End: 99-62-3040vdfxpayqthJBMSJVJKY H SMITHNot AvailableStart: 11-23-2024 End: 13-35-7889Ljcygd flowsheetKarl Fritz DPM Work Phone: no [place] PodiatryStart: 11-23-2024 End: 84-82-7599Fhiucf flowsheetKarl Fritz DPM Work Phone: noms [place] PodiatryStart: 11-16-2024 End: 27-42-1142Iltnttmk ReferredKarl Fritz DPM-Lab [facility] [place] Work Phone: Start: 11-16-2024 End: 63-54-6539Cmtsuo outpatient visit 25 minutesCarebecca Fritz DPM Work Phone: noms SWS PODIATRYComment on above:Ulcer of right foot with fat layer exposed (HCC) (Primary Dx); 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); Cellulitis of right foot; Deformity of toe, rightStart: 11-16-2024 End: 16-73-7191tlghbuftxlThewcv Rebecca Keita DO Work Phone: [facility] Work Phone: Start: 11-16-2024 End: 46-97-8667Wgnnjvrb Result EncounterKarl Fritz DPM Work Phone: noms External Department UnsolicitedStart: 11-16-2024 End: 99-53-2787Rkiiylpj Result EncounterKarl Fritz DPM Work Phone: noms External Department UnsolicitedStart: 11-09-2024 End: 55-52-1845wxbjhjkpicYoyulrx Romario Marc MDFacility:[facility] Ac Start: 10-31-2024 End: 86-02-4668GmkqicPzwl D Bej MD Work Phone: noms [facility] NEURO 111Comment on above:Neurogenic pain Start: 10-21-2024 End: 42-10-0303Njlrpngct encounterOz Kincaid MD Work Phone: noms [facility] NEURO 111Start: 10-20-2024 End: 14-72-1186Rkjayn flowsheetKarl Fritz DPM Work Phone: noms [facility] PODIATRYStart: 10-20-2024 End: 80-74-5326Kcxyqf flowsheetKarl Phi Lam DPM Work Phone: noms [facility] PODIATRYStart: 10-20-2024 End: 63-51-8715Abyerq outpatient visit 25 minutesCarebecca Phi Lam DPM Work Phone: noms [facility] PODIATRYComment on above:Ulcer of right foot with fat layer exposed (HCC) (Primary Dx); 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); Blister of right foot, initial encounter; Deformity, foot, rightStart: 10-20-2024 End: 64-94-0477nyyyasfeplXWMDXAHAL H SMITHNot AvailableStart: 10-07-2024 End: 73-18-2934Zqujgerhd encounterOz Kincaid MD Work Phone: noms [facility] NEURO 111Start: 10-06-2024 End: 19-46-7375Tfwxgi flowsheetOz Kincaid MD Work Phone: noms NEUROLOGYStart: 10-06-2024 End: 78-79-6742Icyrps flowsMelania Kincaid MD Work Phone: noms NEUROLOGYStart: 10-06-2024 End: 64-10-5949Geujwx outpatient visit 25 minutesOz Kincaid MD Work Phone: noms [facility] NEUR BComment on above:Weakness of both lower extremities (Primary Dx); Carpal tunnel syndrome, bilateral; Cognitive decline; Cervical paraspinal muscle spasm; B12 deficiency; Guyon syndrome, unspecified laterality; Numbness; Leg pain, left; Leg pain, right; Bilateral leg weaknessStart: 10-06-2024 End: 94-29-1552yhapmsghzuRQKM D BEJNot AvailableStart: 10-05-2024 End: 47-22-1827kfbripxehcJtbhcybAldair Marc MDFacility:[facility] Start: 10-01-2024 End: 40-36-5891wwwwwzzzwlKqbznv A Keita DO Work Phone: [facility] Work Phone: Start: 10-01-2024 End: 13-35-2096Fznjmpl encounter procedureGloria Keita DO Work Phone: [facility] Physician [facility] Sleep Lab Work Phone: Start: 89-18-1951Ngs-patient / Non-visitGloria Keita DO Work Phone: [facility] Physician [facility] Gastro Work Phone: Start: 09-10-2024 End: 05-74-6917Gwkudiwls to same day surgery centerGloria Keita DO Work Phone: [facility] Work Phone: Start: 09-10-2024 End: 81-40-6284wjyptydxfjVkdirg A Keita DO Work Phone: [phone] [place] [address] Work Phone: Start: 09-07-2024 End: 23-87-8775eoprvaxetkHtzpmr A Keita DO Work Phone: [facility] Work Phone: Start: 09-07-2024 End: 01-12-4091Cjsdasm encounter procedureGloria Keita DO Work Phone: [facility] Physician [facility] Neurosurgery Work Phone: start: 08-25-2024 End: 00-99-2529ckobvdjzyiZomgos A Keita DO Work Phone: [facility] Work Phone: Start: 08-25-2024 End: 32-37-7229Umfihro encounter procedureGloria Keita DO Work Phone: [facility] GroupBridge[facility] [place] Work Phone: Start: 08-20-2024 End: 40-97-0535sbnwlpzsbyIepysp A Debbie DO Work Phone: [facility] Work Phone: Start: 08-20-2024 End: 95-76-8280Cmfpxif encounter procedureGloria Debbie DO Work Phone: [facility] Work Phone: Start: 07-22-2024 End: 11-19-8985Qfzeseb encounter procedureGloria Keita DO Work Phone: [facility]ician Group-[facility] Vascular Surg Work Phone: Start: 07-22-2024 End: 70-55-9247hbalpdjmrsHmzpgr A Keita DO Work Phone: [facility] Work Phone: Start: 07-21-2024 End: 16-79-7610Dwggak outpatient visit 15 minutesOz Kincaid MD Work Phone: noms SWS NEUR BComment on above:Cognitive decline (Primary Dx); Cervical paraspinal muscle spasm; B12 deficiency; Carpal tunnel syndrome, bilateral; Guyon syndrome, unspecified laterality; Neurogenic painStart: 07-21-2024 End: 68-50-1615vagjqhqlgvAYMM D BEJNot AvailableStart: 07-06-2024 End: 58-13-5172uxuwhsptpkHxoorh A Debbie DO Work Phone: [facility] Work Phone: Start: 07-06-2024 End: 41-11-7521Xrlpkuch ReferredGloria Debbie DO Work Phone: [facility]LAB [facility] [place] HospStart: 06-26-2024 End: 41-79-2592Owgxumso Result EncounterNataliya Jane NP Other Phone: noms External Department UnsolicitedStart: 06-26-2024 End: 20-24-0645Fgcepade Result EncounterNataliya Jane NAPRAPATH Other Phone: noms External Department UnsolicitedStart: 06-26-2024 Registered RecurringGloria Debbie DO Work Phone: [facility] Acute Work Phone: Start: 06-26-2024 End: 82-51-9651Eesxssn encounter procedureGloria Debbie DO Work Phone: [facility] [place] Work Phone: Start: 06-26-2024 End: 01-22-3256cswwxsnturWpojet A Debbie DO Work Phone: [facility] Work Phone: Start: 06-26-2024 End: 62-99-1839Zvcdkg outpatient visit 25 minutesMolurdes Faust MD Work Phone: uh FirelandsComment on above:Typical atrial flutter (Multi) (Primary Dx); Nonischemic cardiomyopathy (Multi); Hypercholesteremia; Hypertension, unspecified type; BMI 32.0-32.9,adult; Current smokerStart: 06-26-2024 End: 56-62-4271uqwotlxsnfDBRRCODEmanuel Medical Center AmbulatoryStart: 35-78-1246Liz-patient / Non-visitGloria Debbie DO Work Phone: [facility] Physician Group-[facility] Work Phone: Start: 05-25-2024 End: 55-19-4682Okzvjvv encounter procedureGloria Debbie DO Work Phone: [facility]-MRI [facility] [place] Work Phone: Start: 05-25-2024 End: 99-57-6705isdivgdvosFslpin Rebecca Debbie DO Work Phone: [facility] Work Phone: Start: 05-19-2024 End: 29-60-5319Pfmidvrkc encounterOz Kincaid MD Work Phone: [facility] NEURO 111Start: 05-07-2024 End: 85-79-0496pfcjnzijuhDoaqri A Debbie DO Work Phone: [facility] Work Phone: Start: 05-07-2024 End: 06-72-3693Rdisaxp encounter procedureGloria Debbie DO Work Phone: [facility] Work Phone: Start: 04-28-2024 End: 11-72-2933Viautaswov and management of inpatientGloria Debbie BONNER Work Phone: [facility] [place] [facility] Work Phone: Start: 04-28-2024 End: 17-14-2882ughrsuoxgeOdbpco A Debbie BONNER Work Phone: [facility] Work Phone: Start: 04-28-2024 End: 49-01-2913Pqiabvw encounter procedureGloria Debbie DO Work Phone: [facility]MAR[facility] Work Phone: Start: 04-28-2024 End: 28-24-8637Ucarbms encounter procedureGloria Debbie DO Work Phone: [facility] Physician [facility] Work Phone: Start: 04-27-2024 End: 24-86-5126Oedydzlry department patient visitGloria Debbie DO Work Phone: [facility]Emer[facility] Work Phone: Start: 04-14-2024 End: 96-30-0968Oecwqkmi Result EncounterNataliya Jane NAPRAPATH Work Phone: [facility] External Department UnsolicitedStart: 04-14-2024 End: 78-27-1804Upsxvsvp Result EncounterNataliya Jane NAPRAPATH Work Phone: noms External Department UnsolicitedStart: 04-14-2024 End: 67-13-3801Sweuaux encounter procedureGlsenait Keita DO Work Phone: [facility] Phys[facility] GroupCancer Center Ambulatory Work Phone: Start: 04-08-2024 End: 55-82-9855Jlgqefb encounter procedureCarebecca Fritz DPM Work Phone: [facility] PODIATRYComment on above:Ulcer of right foot, limited to breakdown of skin (CMS/HCC) (Primary Dx); Ulcer of right foot with fat layer exposed (CMS/HCC); 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)Start: 04-08-2024 End: 25-49-5965tourtjbvniTWIYKBBCR H SMITHNot AvailableStart: 04-07-2024 End: 53-26-3545Ezybuz Cceilia Kincaid MD Work Phone: [facility] BM NEUROLOGYStart: 04-07-2024 End: 36-21-6704Eydtfs Cecilia Kincaid MD Work Phone: [facility] BM NEUROLOGYStart: 04-07-2024 End: 96-93-8226Rfxuog outpatient visit 15 minutesOz Kincaid MD Work Phone: [facility] NEUR BComment on above:Cognitive decline (Primary Dx); B12 deficiency; Neurogenic pain; Carpal tunnel syndrome, bilateral; Cervical paraspinal muscle spasm; Guyon syndrome, unspecified laterality; GranulocytosisStart: 04-07-2024 End: 81-98-1869fkahotlpugOCMI D BEJNot AvailableStart: 03-25-2024 End: 59-16-3624lrebsrfjffWGJAECTSamaritan [facility] Center AmbulatoryStart: 03-25-2024 End: 28-00-1786Hanqha outpatient visit 10 minutesRoland Faust MD Work Phone: [facility] HospitalComment on above:Hypertension, unspecified type; Typical atrial flutter (Multi)Start: 02-25-2024 End: 82-36-8696Oeguyi outpatient visit 25 minutesOz Kincaid MD Work Phone: [facility] [place] HOSPITAL NEUR BComment on above:Cognitive decline (Primary Dx); Neurogenic pain; Carpal tunnel syndrome, bilateral; B12 deficiencyStart: 02-25-2024 End: 12-27-7914Hhwfak Cecilia Kincaid MD Work Phone: noms NEUROLOGYStart: 02-25-2024 End: 33-98-8315Gjgfev Cecilia Kincaid MD Work Phone: noms NEUROLOGYStart: 02-25-2024 End: 11-10-5715triwruhxokNYYJ D BEJNot AvailableStart: 02-14-2024 End: 90-85-1152gkwfqmwecgQrkzhr Rebecca Keitacility:[facility]art: 02-14-2024 End: 89-58-2692Ubjbzysj ReferredGloria Keita DO Work Phone: [facility] Work Phone: Start: 02-10-2024 End: 14-24-4280Nuowxp flowsTayler Fritz DPM Work Phone: n[facility] PODIATRYStart: 02-10-2024 End: 10-11-1951Lljjbm flowsTayler Fritz DPM Work Phone: noms [facility] PODIATRYStart: 02-10-2024 End: 59-20-7885Oltroa outpatient visit 15 minutesCarebecca Fritz DPM Work Phone: noms [facility] PODIATRYComment on above:Ulcer of right foot, limited to breakdown of skin (CMS/HCC) (Primary Dx); Blister of right foot, subsequent encounter; 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); Ulcer of right foot with fat layer exposed (CMS/HCC)Start: 02-03-2024 End: 45-85-4797zujgifrwaiML Sandra Keita Work Phone: [facility] Work Phone: Start: 02-03-2024 End: 82-88-3738Kqinydi encounter procedureDO Sandra Keita Work Phone: [facility] [place] Work Phone: Start: 01-27-2024 End: 17-72-5474Wenhla flowsTayler Fritz DPM Work Phone: noms [facility] PODIATRYStart: 01-27-2024 End: 11-79-3494Yzhapp flowsTayler Fritz DPM Work Phone: noms [facility] PODIATRYStart: 01-27-2024 End: 02-99-2680Vkyzhd outpatient visit 15 minutesKarl Fritz DPM Work Phone: noms [facility] PODIATRYComment on above:Ulcer of right foot, limited to breakdown of skin (CMS/HCC) (Primary Dx); Blister of right foot, subsequent encounter; 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)Start: 01-21-2024 End: 67-13-6190Jnkuev flowsTayler Fritz DPM Work Phone: noms [facility] PODIATRYStart: 01-21-2024 End: 87-91-6613Ujdmyz flowsTayler Fritz DPM Work Phone: noms [facility] PODIATRYStart: 01-21-2024 End: 48-00-9638Ystroz outpatient visit 15 minutesKarl Fritz DPM Work Phone: noms SWS PODIATRYComment on above:Ulcer of right foot, limited to breakdown of skin (CMS/HCC) (Primary Dx); Blister of right foot, initial encounter; 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)Start: 01-15-2024 End: 42-29-2322itnanvzwksSG Sandra Fernandez Keita Work Phone: [facility] Work Phone: Start: 01-15-2024 End: 96-69-0735Gutlztj encounter procedureDO Sandra Keita Work Phone: [facility] Work Phone: start: 01-08-2024 End: 92-77-6839Wzbbvhypj encounterOz Kincaid MD Work Phone: noms [facility] NEURO 111Start: 01-07-2024 End: 03-42-3752Moktyg flowsTayler Fritz DPM Work Phone: noms [facility] PODIATRYStart: 01-07-2024 End: 40-43-4273Kwqyog Amalia Fritz DPM Work Phone: noms [facility] PODIATRYStart: 01-07-2024 End: 54-48-1589Lepnvc outpatient visit 25 minutesOz Kincaid MD Work Phone: noms [facility] NEUR BComment on above:Lumbosacral radiculopathy at S1 (Primary Dx); Neurogenic pain; Cervical paraspinal muscle spasm; Lumbar paraspinal muscle spasm; Carpal tunnel syndrome, bilateral; B12 deficiencyStart: 01-07-2024 End: 60-36-3595aiwsvhtncxUT Sandrarebecca Keita Work Phone: [facility] Work Phone: Start: 01-07-2024 End: 35-77-4522Mudgkefj ReferredDO Sandra Keita Work Phone: [facility] [place] Work Phone: Start: 01-07-2024 End: 54-63-5845Igshqy outpatient visit 25 minutesCarebecca Fritz DPM Work Phone: noms [facility] PODIATRYComment on above:Ulcer of right foot, limited to breakdown of skin (CMS/HCC) (Primary Dx); Cellulitis of right footStart: 01-06-2024 End: 28-55-5629uvxrvgyznaOZNona Keita Work Phone: [facility] Work Phone: Start: 01-06-2024 End: 25-12-7496Rfgpczz encounter procedureDO Sandra Keita Work Phone: [facility] [place] Work Phone: Start: 01-03-2024 End: 49-63-9247Gbrqdxes SupportOz Kincaid MD Work Phone: noms SWS NEUR BComment on above:Carpal tunnel syndrome, bilateral (Primary Dx)Start: 01-03-2024 End: 36-72-9327Ispuos Cecilia Kincaid MD Work Phone: noms BM NEUROLOGYStart: 01-03-2024 End: 04-62-7443Ezsmyz Cecilia Kincaid MD Work Phone: noms BM NEUROLOGYStart: 12-17-2023 End: 45-60-7371hgtmilwznrAXNona Keita Work Phone: [facility] Work Phone: Start: 12-17-2023 End: 00-75-9082Ngkyfvf encounter procedureDO Sandra Keita Work Phone: [facility] [address] Work Phone: Start: 12-16-2023 End: 79-07-5062Xtfuco outpatient visit 25 minutesMolurdes Faust MD Work Phone: uh FirelandsComment on above:High risk medication use (Primary Dx); Typical atrial flutter (Multi); Nonischemic cardiomyopathy (Multi); Hypercholesteremia; BMI 28.0-28.9,adult; BMI 30.0-30.9,adult; Current smokerStart: 12-02-2023 End: 27-02-6735yghdegqcwjKC Sandra A Keita Work Phone: [facility] Work Phone: Start: 12-02-2023 End: 79-70-3353Cnubzbh encounter procedureDO Sandra Keita Work Phone: [facility] [place] Work Phone: Start: 11-26-2023 End: 09-13-9463oywqbktrngPY Sandra A [facility]ly [facility] Work Phone: [facility] Work Phone: Start: 11-26-2023 End: 18-91-7084Ryuyuku encounter procedureDO Sandra Keita Work Phone: [facility] [place] Work Phone: Start: 11-26-2023 End: 94-16-1928Pnnlxphv Result EncounterMark Lillian Kincaid MD Work Phone: noms External Department UnsolicitedStart: 11-26-2023 End: 93-97-2637Tetullzq Result EncounterMark Lillian Kincaid MD Work Phone: noms External Department UnsolicitedStart: 11-18-2023 End: 81-52-9315wyvjmnyjgbPG Sandra Fernandez Keita Work Phone: [facility] Work Phone: Start: 11-18-2023 End: 27-30-0831Oubzopa encounter procedureDO Sandra Keita Work Phone: [facility] [place] Work Phone: Start: 15-58-5905Rll-patient / Non-visitDO Sandra Keita Work Phone: [facility] Work Phone: Start: 11-15-2023 End: 80-57-6246uiwgwopridZL Sandra Keita Work Phone: [facility] Work Phone: Start: 11-15-2023 End: 14-68-4922Tzegcka encounter procedureDO Sandra Keita Work Phone: [facility]Res[facility] Work Phone: Start: 11-14-2023 End: 91-36-3312qqjkpfnuitOB Sandra Fernandez Keita Work Phone: [facility] Work Phone: Start: 11-14-2023 End: 73-71-4791Fnsgwyg encounter procedureDO Sandra Keita Work Phone: [facility] Work Phone: Start: 11-13-2023 End: 78-84-1119Zesbnb outpatient visit 25 minutesJonas Ch MD Work Phone: uh [facility]Com[facility] on above:Nonischemic cardiomyopathy (Multi) (Primary Dx); Typical atrial flutter (Multi); Hypercholesteremia; Primary hypertension; Current smoker; BMI 28.0-28.9,adult; High risk medication useStart: 84-52-0956Gdj-patient / Non-visitDO Sandra Debbie Work Phone: [facility] Work Phone: Start: 11-10-2023 End: 07-22-8054Negbqzsdsi and management of inpatientDO Sandra Keita Work Phone: [facility] Work Phone: Start: 11-05-2023 End: 50-31-9787Smanlpcrv to same day surgery centerDO Flores Keita Work Phone: [facility] Work Phone: Start: 11-05-2023 End: 24-97-8997hstyhhszbyKS Gloria A Keita Work Phone: [facility] Work Phone: Start: 10-30-2023 End: 35-97-3290Yxuqjtnr Result EncounterOz Kincaid MD Work Phone: noms External Department UnsolicitedStart: 10-30-2023 End: 19-18-5400Pexqqwgg Result EncounterOz Kincaid MD Work Phone: noms External Department UnsolicitedStart: 10-30-2023 End: 31-76-5120hveylasfusGFNona Keita Work Phone: [facility] Work Phone: Start: 10-30-2023 End: 28-25-0438Pjctbjo encounter procedureDO Sandra Keita Work Phone: [facility] Work Phone: Start: 10-07-2023 End: 03-26-6393Qbvsru outpatient visit 25 minutesJonas Ch MD Work Phone: [facility] gateComment on above:Typical atrial flutter (Multi); Nonischemic cardiomyopathy (Multi); Hypertension, unspecified type; Hypercholesteremia; Smoker; Type 2 diabetes mellitus with other specified complication, unspecified whether long term care social worker insulin use (Multi); BMI 28.0-28.9,adultStart: 09-17-2023 End: 96-38-6829abveyyagbhJINona Keita Work Phone: [facility] Work Phone: Start: 09-17-2023 End: 88-12-7463Nhtmfve encounter procedureDO Snadra Keita Work Phone: [facility] Work Phone: Start: 35-44-4458Qzl-patient / Non-visitDO Sandra Debbie Work Phone: [facility] [place] Work Phone: Start: 09-14-2023 End: 53-66-6267Cbe-patient / Non-visitDO Sandra Debbie Work Phone: [facility] Work Phone: Start: 09-13-2023 End: 77-88-9829Sqbcjxskcd and management of inpatientDO Sandra Debbie Work Phone: [facility] [place] [facility] Work Phone: Start: 09-12-2023 End: 65-63-1795Kyazhxe encounter procedureDO Sandra Debbie Work Phone: [facility] Work Phone: Start: 84-99-9750Yoh-patient / Non-visitDO Sandra Debbie Work Phone: [facility] [place] Work Phone: Start: 09-05-2023 End: 03-96-3042yzqveihgkbAQ Sandra A Keita Work Phone: [facility] Work Phone: Start: 09-05-2023 End: 94-67-1252Zklspbq encounter procedureDO Sandra Debbie Work Phone: [facility] [place] Work Phone: Start: 07-25-2023 End: 51-97-0832xvlultzqmfUF Sandra A Keita Work Phone: [facility] Work Phone: Start: 07-25-2023 End: 43-49-1885Qvjvfip encounter procedureDO Sandra Debbie Work Phone: [facility] [address] Work Phone: Start: 07-17-2023 End: 53-66-6880wxbfbznbvjTcglesgvzMercy Health [facility] Work Phone: Start: 07-17-2023 End: 11-08-5729Ysjqrzo encounter procedureR[facility]ford [facility] Work Phone: Start: 06-19-2023 End: 40-19-6438xltfwiyvhlCziqptepvMercy Health [facility] Work Phone: Start: 06-19-2023 End: 72-21-2223Unhkqdx encounter procedureR[facility]ford [facility] [place] Work Phone: Start: 06-12-2023 End: 90-80-3863rhnhlzboxdTucsscmdnMercy Health [facility] Work Phone: Start: 06-12-2023 End: 59-35-5874Gbwptkw encounter procedureRutherford Regional Health [facility] Work Phone: Start: 06-10-2023 End: 17-97-2747xxkgncuboqGmixte Mapus Other TopTenREVIEWS Other Start: 94-88-0601Jnaczokwd encounterTondra Mapus [facility]tart: 05-21-2023 End: 06-30-9131esdepletitNxyaga Keita Other noArtsy Other Start: 43-78-8007Xzneiaffs encounterGloria DebbieBANNER Family Medicine [place] lauderdaleyStart: 04-30-2023 End: 35-03-3659dtjewzwkzgGaygjh Mapus Other noArtsy Other Start: 12-66-6825Azzhkmmho encounterTondra Yvonne [facility] ClinicStart: 04-11-2023 End: 95-20-4631ziedogzlsmAxcpdr Johns Other noArmut Bundlr Other Start: 14-83-1333Rpbpzyouv encounterGloria DebbieKaiser Foundation HospitalyStart: 04-08-2023 End: 54-35-8443zzovmzxlatUvsyjy Johns Other noAdReady Other Start: 72-41-1620Seqfcvkbu encounterGloria DebbieKaiser Foundation HospitalyStart: 03-05-2023 End: 08-03-8419ifsfpirylkES Jonas Yoder Work Phone: [facility] Work Phone: Start: 03-05-2023 End: 11-35-7334Dbkpgdv encounter Navid Yoder Work Phone: [facility] Work Phone: Start: 03-04-2023 End: 94-72-2516zxsfutygnzKffnhb Johns Other noArmut Bundlr Other Start: 07-94-4873Dkwnfc outpatient visit 25 minutes Sandra DebbieWest Los Angeles VA Medical CenteruskyStart: 01-28-2023 End: 14-12-3053ifvehxsdpjWdsoue Johns Other [facility] Bundlr Other Start: 93-77-6193Yhzsbjgbz encounterGloria DebbieKaiser Foundation HospitalyStart: 78-38-8669Zytmqhawsq RecurringDO Jonas Yoder Work Phone: [facility] Work Phone: Start: 01-07-2023(DM) DiabetesTondra YvonneAtrium Health [facility] Coord[facility] Care ClinicStart: 01-07-2023 End: 78-88-6319znjxfnfhbuVzsktn Yvonne Other noArmut Bundlr Other Start: 01-02-2023 End: 71-41-4631veidqrbpcsHyhsonfs McCormack Other nort Bundlr Other Start: 82-25-9401Jnrwmn outpatient visit 15 minutes Brayden NobleBANNER GastroenterologyStart: 12-28-2022 End: 95-34-6832pdbutzhpsmSrtcvw Debbie Other [facility] Bundlr Other Start: 14-37-1003Woazyaqga encounterGloria DebbieKaiser Foundation HospitalyStart: 12-18-2022 End: 04-88-2994lytuufdlwnInduzae Schwerer Other [facility] Bundlr Other Start: 14-82-4920Fkqeittuy encounterKaitlin Schwerer [facility] HospitalyStart: 12-10-2022 End: 09-88-8881isclkfdvczZzqqej Mapus Other [facility] Bundlr Other Start: 59-40-0924Jkoffukei encounterTondra Yvonne [facility] Care ClinicStart: 11-28-2022 End: 67-15-7084dcefcyzaihKwqevd Keita Other noAdReady Other Start: 31-05-2281Davqijh encounter procedureGloria JohnsKaiser Foundation HospitalyStart: 11-27-2022 End: 28-42-5520ymodlqpliuIbhbgx Keita Other noArmut [employer] Other Start: 29-49-3460Iixytegcf encounterGloria [facility] CenteryStart: 11-06-2022 End: 07-29-4273fowxnwiebeLhmxfi Keita Other [employer] Bundlr Other Start: 62-34-5741Xneemqmnk encounterGloria [facility] Medical CenteryStart: 09-27-2022(DM) DiabetesTondra MapusAshtabula [facility] ClinicStart: 09-27-2022 End: 34-03-7476aketphtawhJxjwit Leonardous Other [facility] Bund[employer] Other Start: 09-10-2022 End: 41-84-0243ynvpvgiesqMmfgdt Keita Other [facility] [employer] Other Start: 07-52-8469Asbiwhurb encounterGloria [facility] Medical CenteryStart: 96-16-7735Atjtmmrsq encounterGloria [facility] CenteryStart: 09-05-2022 End: 85-11-0512kwobmnybrbWA Sandra A [facility]ly [facility] Work Phone: [facility] Work Phone: Start: 09-05-2022 End: 68-60-2883Etgfzxy encounter procedureDO Sandra [facility] Work Phone: [facility] Work Phone: Start: 35-20-3095Ndmzctfsw encounterGloria [facility] CenteryStart: 08-22-2022 End: 14-42-6437lbxrfmhcjaWD Sandra A [facility] Work Phone: [facility] Work Phone: Start: 08-22-2022 End: 84-06-3432Rmakask encounter procedureDO Sandra [facility] Work Phone: [facility] [address] Work Phone: Start: 08-09-2022 End: 46-63-4316onxlfexudmNuhjhi Keita Other noArmut [employer] Other Start: 94-76-6721Uraamk outpatient visit 15 minutes Sandra DebbieBANNER Family Medicine [place]kyStart: 08-06-2022 End: 23-77-2199wdjaoysnmlHwiaro Keita Other [facility] Bund[employer] Other Start: 49-90-9163Ezrnhdfoz encounterGloria JohnsBANNER Family Medicine [place] lauderdaleyStart: 07-10-2022 End: 37-03-7809twzjrezsukCebino Keita Other [facility] [employer] Other Start: 85-98-2083Ljumwgpxy encounterGloria JohnsBANNER Family Medicine [place] lauderdaleyStart: 07-04-2022 End: 16-93-0239xehauhksdlMzswgxy Rita Other [facility] [employer] Other Start: 86-96-5024Ukeprdxsw encounterRichard BinksBANNER Family Medicine [place] lauderdaleyStart: 06-19-2022 End: 86-44-8193nlsqkwnjxnVvmoyy Mapus Other [facility] Bund[employer] Other Start: 24-02-2440Ohwdlpcwe encounterTondra Leonardous [facility] Care ClinicStart: 06-18-2022(DM) DiabetesTondra Leonardous [facility] Care ClinicStart: 06-18-2022 End: 32-65-9315hagurxsmuvFqffch Mapus Other [facility] Bundlr Other Start: 06-14-2022 End: 97-78-9958beohhvffvwOfmkfc Mapus Other [employer] Other Start: 66-38-3838Oxiwhasrj encounterTondra Yvonne [facility] ClinicStart: 06-08-2022 End: 79-65-0602azspmgtigtPkmscw Yvonne Other noArtsy Other Start: 66-57-0259Yducoakyn encounterTondra [facility] ClinicStart: 06-04-2022 End: 95-01-9757kypzqhksqnTiaqku Keita Other noArtsy Other Start: 25-46-1575Ykthnfaty encounterGloria JohnsKaiser Foundation HospitalyStart: 05-30-2022 End: 40-74-4475armajgrtrfHcgufx Keita Other [employer] Other Start: 11-90-8380Zlxgywioq encounterGloria JohnsKaiser Foundation HospitalyStart: 05-24-2022 End: 70-95-0643nsqqsystckKeevdp Keita Other noArtsy Other Start: 45-59-1261Qhgtduurf encounterGloria JohnsCount includes the [facility]: 04-03-2022 End: 35-82-4494wxylftajroQlcdpr Keita Other [employer]VIE[employer] Other Start: 05-05-0738Aqtzbngmp encounterGloria JohnsCount includes the [facility]: 02-14-2022 End: 54-07-7845wtonishcooFbqsfg Keita Other [employer]IE[employer] Other Start: 04-51-7014Pwphqbsic encounterGloria JohnsCount includes the [facility]: 01-09-2022(DM) DiabetesTondra Ana Cristina Coord[facility] Care ClinicStart: 01-09-2022 End: 78-59-4273lzeskmcjrdRbvzaf Leonardous Other [facility] Bundlr Other Start: 65-62-7794docbjhyysrAmvbu QuianaKenisha LueFacility: [place]uskyStart: 91-06-3889gtnasdnzvwPapleydd A ClemonsFacility: NorwalkStart: 12-17-2021 End: 88-30-9901Dllyqgurv department patient visitDO Tray MorrismilanOhiohealth Ctr-Emergency RoomStart: 21-74-5537bvohftqywiZqqlnxmd Tom Facility:[facility] HospitaluskyStart: 12-12-2021 End: 45-50-8704aggyflhjsuMBGFAO AHUJAFacility:CD:[id number]: 12-11-2021 End: 43-70-0780olcymusoxkAAALCM AHUJAFacility:CD:[id number]: 12-09-2021 End: 96-55-6100Xturnddmwg and management of inpatientDO Tray Randle [facility] [place] [facility] SurgStart: 10-12-2021 End: 50-79-5703vkvymxryvwPeooy Carnahan Other [facility] Bundlr Other Start: 73-98-0572Afsaqhe encounter procedureKevin [facility] Medicine [place]kyStart: 36-30-3688Zlcdqevfj encounterKevin [facility] SadieuskyStart: 09-13-2021 End: 20-21-2715ejjtgushagZmakz Carnahan Other noArmut Bundlr Other Start: 79-77-0456Imblrapal encounterKevin [facility] Medicine [place]Start: 08-28-2021 End: 79-50-8573chwhdobdgiBmkgzz Mapus Other [facility] Bund[employer] Other Start: 39-22-0761Uwdzjrwmy encounterTondra MapusFPG EndocrinologyStart: 07-10-2021(DM) DiabetesTondra MapusFirelands Coordinated Care ClinicStart: 07-10-2021 End: 95-39-9323adeywppfsvJwdsds Mapus Other [facility] Bundlr Other Start: 07-03-2021 End: 04-08-4464gftahibpybGesas Chaban Other nort Bundlr Other Start: 81-73-1913Ryvdzc outpatient new 30 minutesSt. Vincent Hospital SouthStart: 06-28-2021 End: 52-80-9694gfmrvxrwwzZvqjy Carnahan Other nort Bundlr Other Start: 69-54-5945Jytfzqujb encounterKevin CarnFalmouth Hospital Family Medicine [place]Start: 05-25-2021 End: 49-94-7819fmgeuzjqqyDnyzs Aayush Other [facility] Bund[employer] Other Start: 31-38-9409Djhuqufkq encounterKevin CarnahanG Family Medicine [place]Start: 05-08-2021 End: 10-81-8004umrwopkxmrRdytm Aayush Other [facility] [employer] Other Start: 23-71-5155Gmrmgs outpatient new 45 minutesKevin CarnahanG Family Medicine [place]kyStart: 04-11-2021 End: 25-72-3143yseljsqiznHfjzyq Mapus Other [facility] Bundlr Other Start: 32-65-9632Xhammeppq encounterTondra Mapus [facility] Coordinated Care ClinicStart: 04-03-2021 End: 57-57-2323tdflyrwfaiXosjdqd Langenberg Other noArmut Bundlr Other Start: 63-33-8877Igiyom outpatient visit 15 minutes Tray Boom Vascular SurgeryStart: 03-27-2021(DM) DiabetesTondra Leonardous [facility] ClinicStart: 03-27-2021 End: 70-59-1293emaorjqjulUmxqxv Leonardous Other [facility] [employer] Other Start: 02-27-2021 End: 89-51-6594dihdvrxlkwXhqvcvu Langenberg Other [facility] Bundlr Other Start: 32-80-9767Pbmvxu outpatient visit 15 minutes Tray [facility] SurgeryStart: 05-16-2017 End: 02-33-0665RzdwucezerPLJS MD JOHNSONFacility:UNKNOWNStart: 01-25-2017 End: 16-51-6523BaivrmynvmFAVEO [facility]ITALFac[facility]:H1 Procedures DateProcedureProcedure DetailPerforming ClinicianStart: 94-99-3013Vtmpxcmc screenMICZOIE Anderson on above:Order Comment: Specimen Type: BLOOD SPECIMEN Ordering Facility: [facility] Address: [address] [place], [place] [address]Performed By: #### [id number] #### [facility] CLIA [id number] [address] [place] [address] [place] AMERICAStart: 26-08-2665UT of lungsJennifer Cierra WASHATERIA ATTENDANT Work Phone: Start: 50-28-2199VDAQICVQVUBRD SMEAR CYTOLOGYLinwood Irwin MD Work Phone: start: 62-23-0539Wfpqe foot complete minimum 3 views Karl Fritz DPM Work Phone: start: 40-07-9936UDBJWBZBRQB WOUND CULTURE [place] Karl Fritz DPM Work Phone: start: 91-19-1821Vukqqap microbial cultureGloria Keita DO Work Phone: Start: 42-10-9776HcmrkphsaekzbrzzqzoxojtqemAzrhod Keita DO Work Phone: Start: 15-75-5572Tdltt cultureGloria Keita DO Work Phone: Start: 07-15-1382Oaekrzjt blood count with white cell differential, automatedNataliya Jane NAPRAPATH Other Phone: Start: 01-96-3810Wob routine ecg w/least 12 lds w/i&r Roland Faust MD Work Phone: Start: 37-86-0037NHK of headGloria Keita DO Work Phone: Start: 75-96-8477Nyqix cultureGloria Keita DO Work Phone: Start: 33-65-0461UR angiography of headGloria Keita DO Work Phone: Start: 71-46-3375PB angiography of neck vesselsGloria Keita DO Work Phone: Start: 09-71-3397HQ of head without contrastGloria Keita DO Work Phone: Start: 49-01-8118Llzzv chest X-rayGloria Keita DO Work Phone: Start: 00-91-6046Utuhwmbbxvw Panel (PCR)Sandra Debbie DO Work Phone: Start: 73-21-7334Rainoozv blood count with white cell differential, automatedNataliya Jane NAPRAPATH Work Phone: Start: 07-33-6516Jjwixbtlxxvlm metabolic panelNataliya Jane NAPRAPATH Work Phone: Start: 75-29-5595XNUXHOBDSSW SLIDE REVIEW [place]Nataliya Jane NAPRAPATH Work Phone: Start: 99-46-5615Uxx routine ecg w/least 12 lds w/i&r Roland Faust MD Work Phone: Start: 04-12-5301Tipvvqe microbial cultureDO Sandra Keita Work Phone: Start: 52-32-5350Oohzqu scan of lower limb veinsDO Sandra Keita Work Phone: Start: 72-78-1837HS lumbar spine wo conDKelly Keita Work Phone: Start: 30-64-9279NX pre/post mri xrayDO Sandra Keita Work Phone: Start: 42-49-8557Rus routine ecg w/least 12 lds w/i&r Roland Faust MD Work Phone: Start: 99-19-6422AWAL PROFILE (ANCA+MPO+PR3)Oz Lillian Kincaid MD Work Phone: start: 93-73-5695DAWA-CENTROMERE B ANTIBODIESOz Kincaid MD Work Phone: start: 71-90-9674RGXS-DSDNA(DBL)ABOz Kincaid MD Work Phone: start: 84-59-1713UXQL-RNPMark Lillian Kincaid MD Work Phone: Start: 05-97-3631Ctzgjcmjzlm antibodies anaMark Lillian Kincaid MD Work Phone: start: 90-78-1357GJSZKIQDKAEYD P ANTIBODIESOz Kincaid MD Work Phone: start: 30-27-0854OKNIBQW ANTIBODIESOz Kincaid MD Work Phone: start: 19-81-2476Rtqxbyhrlji analyte qual/semiqual multiple stepOz Kincaid MD Work Phone: Start: 45-79-2485FM-1 ANTIBODYMark Lillian Kincaid MD Work Phone: start: 90-48-6108WADHRNW AND PYRUVATEMark Lillian Kincaid MD Work Phone: start: 63-14-6774TFUQPQPZMXA 70 ANTIBODIESOz Kincaid MD Work Phone: start: 65-43-8151BHNGNIJD ANTI-SSA/SSBMark Lillian Kincaid MD Work Phone: start: 17-62-2277JLU AUTOANTIBODIESOz Kincaid MD Work Phone: start: 20-45-5368Sys routine ecg w/least 12 lds w/i&r Jonas Ch MD Work Phone: Start: 83-91-9392DSP of headDO Sandra Keita Work Phone: Start: 72-35-6163Hhcylqje identified in Urine by Emile Keita Work Phone: Start: 67-44-5913Weqtd Emile Flores Keita Work Phone: Start: 79-96-8772CQ of head without contrastDO Sandra Keita Work Phone: Start: 42-36-6383MZMPBEJ AND PYRUVATEOz Kincaid MD Work Phone: start: 71-14-3139H-ray of lumbar spine, six views including bending viewsDO Sandra Keita Work Phone: Start: 08-72-0005Mgabrybprha [Units/volume] in Serum or PlasmaWilliaquiana Ch MD Work Phone: Start: 72-22-4158Pxiph chest X-rayDO Sandra Keita Work Phone: Start: 26-65-4334NU of lungsDO Sandra Keita Work Phone: Start: 30-61-1728Auwm energy X-ray absorptiometryDO Jonas Yoder Work Phone: Start: 73-87-4271Mlqoaorbh mammography of bilateral breastsDO Sandra Keita Work Phone: Start: 62-45-3360WV of lungsDO Sandra Keita Work Phone: Start: 64-80-5418Pbyeoaft tomography of abdomen and pelvis with contrastDO Tray Carrasquilloart: 46-57-5528Kymnhxqadn laparoscopyDO Tray Carrasquilloart: 72-95-9646ST scan of gallbladderDO Tray Randle Start: 84-36-6407AE of abdomen and pelvis without contrastDO Tray Randle Start: 70-66-8237FshgoohqtzxEgdalug McGuinn MD Work Phone: Start: 71-76-0905Xapxviyo screenComment on above: Performed By: #### [id number] #### [place] [address] Ozmog culture for bacteria, including anaerobic screenDO Tray NovoaARS Antigen (LFIA)DO Tray JerUrine cultureDO Trayumu Randle Urine cultureDO Tray Randle Plan of Treatment DateCare ActivityDetailAuthorStart: 08-17-2025 End: 20-66-0342Zocjnan encounter /21/2026 3:10 PM EDT Office Visit [place] [address] [facility] [address] [place] [address] Roland Faust MD [address] [facility], [address] [place] [address] [facility]: [facility]2025 End: 92-09-7695Xkvzwus encounter mmppbeqbb72/14/2026 1:15 PM EDT Office Visit JUMA NUNN [address] [place] [address] Linwood Irwin MD [address] [place], [place] [id number] JUMA Chun OBGYNStart: 07-20-2025 End: 55-67-4626Dqrofjl encounter qdsdsxkez24/24/2026 4:00 PM EDT Office Visit JUMA [facility] [address] [place] [address] Oz Kincaid MD [address] [phone] JUMA [facility] Start: 02-10-2025 End: 15-19-0348Tjqsaxg encounter oeotlqcli10/15/2025 1:00 PM EDT Office Visit JUMA HARDINGELVIRAN [address] [place] [address] Linwood Irwin MD [address] [place] [address] JUMA Chun OBGYNStart: 02-09-2025 End: 05-71-5321Qbafyqh encounter pgvusatoc17/14/2025 12:30 PM EDT Office Visit JUMA HARDINGELVIRAN [address] [place] [address] Linwood Irwin MD [address] [place] [address] JUMA Chun OBGYNStart: 01-19-2025 End: 06-01-0541Kftjiwv encounter procedureNOMS SWS NEUR BStart: 12-30-2024 End: 52-03-8178Aboqcvl encounter utnwcswsu02/03/2025 1:40 PM EDT Office Visit [place] [address] [facility] [address] [place] [address] Roland Faust MD [address] [facility] [place], [place] [phone] [facility] HospitalStart: 76-97-9887GESOS-19 Vaccine ( season)COVID-19 Vaccine ( season)[facility] Start: 92-94-9180Efonlvfhn vaccinationInfluenza Vaccine (#1)[facility]Start: 12-18-2024 End: 74-44-8010Xhpzhol encounter procedureNOMS SWS NEUR BStart: 12-11-2024 End: 10-02-7255Eybshee encounter procedureNOMS SWS NEUR BStart: 11-30-2024 End: 50-22-4844Xejcwrk encounter /04/2025 1:15 PM EDT Office Visit NOMJaqueline Chun Podiat[facility] [address] [place] [address] Karl Fritz, DPM [address] [place] [address] NOMJaqueline Chun PodiatryStart: 11-23-2024 End: 56-95-7980Ungctuw encounter procedureNOMS SWS PODIATRYComment on above: ArrivedStart: 66-14-5997Ugfhsllygwy Wound CultureSuperficial Wound Culture [facility]tart: 22-59-3798Xtavqpc stimulating hormone measurementAllianceHealth Ponca City – Ponca CityStart: 10-28-2024 End: 32-98-9647Hqivpzy encounter cmcpeqswm05/02/2025 4:00 PM EDT Office Visit [facility] [address] [place] [address] Karl Fritz, DPM [address] [place] [address] NOMS SWS PODIATRYStart: 10-23-2024 End: 13-53-0599Xpncvle encounter jzkdfzayu62/27/2025 12:00 PM EDT Procedure Visit [facility] NEUR B [address] [place] [address] Oz Kincaid MD [address] [place] [address] [facility] SWS NEUR BStart: 10-20-2024 End: 77-91-3035Zcnvprj encounter qndaxozui84/24/2025 10:45 AM EDT Office Visit [facility] [address] [place] [address] Karl Fritz DPM [address] [place] [address] ArrivedNOMS SWS PODIATRYComment on above:ArrivedStart: 10-06-2024 End: 52-03-1078CKL AND NERVE CONDUCTION STUDYEMG AND NERVE CONDUCTION STUDY Neurology Routine Numbness Leg pain, left Leg pain, right Bilateral leg weakness Expected: 10/06/2024 (Approximate), Expires: 10/06/2025[facility] Work Phone: comment on above:Expected: 10/06/2024 (Approximate), Expires: 10/06/2025Start: 10-06-2024 End: 02-45-0664Ksmfira encounter procedureNOMS [facility] NEUR BComment on above: ArrivedStart: 09-10-2024 End: 31-40-8292LannsocwmMcKitrick Hospitaltart: 52-27-5785Sxoszzb referralWood County Hospital Work Phone: Start: 09-15-9586Nnaxbzf referralWood County Hospital Work Phone: Start: 04-46-2555Naovs brachial pressure index [facility]: 25-47-5923Intsl cultureMcKitrick Hospitaltart: 28-39-3130Iinxkvds identified in Urine by Culture Urine CultureMcKitrick Hospitaltart: 17-56-2709AavbxmxlfMcKitrick Hospitaltart: 05-26-2024 End: 14-75-8895Vorccrp encounter chrwytmfr68/28/2025 2:40 PM EST Office Visit [address] [place] [address] Roland Faust MD [address] [facility], [address] [place] [address] [facility] HospitalStart: 05-07-2024 End: 00-91-5194Xxstbdg encounter wrmvngazq94/09/2025 2:15 PM EST Office Visit [facility] [address] [place] [address] Karl Fritz, DPM [address] [place] [address] NOMS SWS PODIATRYStart: 81-11-7430OtbnpemxdMcKitrick Hospitaltart: 04-29-2024 End: 93-67-0650DsczuWright-Patterson Medical Centertart: 04-29-2024 Referral to neurologistMcKitrick Hospitaltart: 04-29-2024 [facility]: 26-23-2393Soajghbo admissionMcKitrick Hospitaltart: 70-74-4384JbuvumiukMcKitrick Hospitaltart: 04-07-2024 End: 68-61-5879Qyngeoh encounter qickmkfff65/10/2024 3:30 PM EST Office Visit [facility] [address] [place] [address] Karl Fritz, DPM [address] [place] [address] N[facility]S SWS PODIATRYStart: 04-07-2024 End: 62-57-3483Ospaztp encounter procedureNOMS SWS NEUR BComment on above: ArrivedStart: 03-27-2024 End: 44-13-8359Fbkgapm encounter gfbnvjias33/29/2024 10:10 AM EST Office Visit [address] [place] [address] Roland Faust MD [address] [facility] [address], [address] [place] [address] FirelandsStart: 03-24-2024 End: 99-92-6073Kuoihzo encounter nnpamdhtb27/26/2024 1:30 PM EST Office Visit [facility] [address] [place] [address] Karl Fritz, DPM [address] [place] [address] NOMS SWS PODIATRYStart: 03-10-2024 End: 88-67-9410Gmexbrf encounter arhttirxm81/12/2024 1:30 PM EST Office Visit [facility] [address] [place] [address] Karl Fritz, DPM [address] [place] [address] NOMS SWS PODIATRYStart: 02-25-2024 End: 60-18-8295Ndqlvhy encounter procedureNOMS SWS NEUR BComment on above: ArrivedStart: 02-10-2024 End: 50-78-7215Vhkqdcu encounter procedureNOMS SWS PODIATRYComment on above: ArrivedStart: 01-28-2024 End: 48-05-1229Gwihwos encounter yxghoswpz41/01/2024 1:30 PM EDT Office Visit [facility] NEUR B [address] [place] [phone] Oz Kincaid MD 6519 [facility] [address] [phone] [facility]OMS SWS NEUR BStart: 01-27-2024 End: 80-41-5385Afcjnlp encounter procedureNOMS SWS PODIATRYComment on above: ArrivedStart: 01-21-2024 End: 04-40-8600Biaipqu encounter zidbeteog58/24/2024 11:00 AM EDT Office Visit [facility] [address] [place] [address] Karl Fritz DPM [address] [place] [address] ArrivedNOMS [facility] PODIATRYComment on above:ArrivedStart: 00-02-5350Bvyotgifwgc Wound CultureSuperficial Wound CultureMcKitrick Hospitaltart: 01-07-2024 End: 08-48-7293EWCQTKPBAYM WOUND CULTURE ([facility]SUPERFICIAL WOUND CULTURE [place] Microbiology Routine Ulcer of right foot, limited to breakdown of skin (CMS/HCC) Cellulitis of right foot Expected: 01/07/2024 (Approximate), Expires: 01/06/2025[facility] Work Phone: comment on above:Expected: 01/07/2024 (Approximate), Expires: 01/06/2025Start: 01-07-2024 End: 66-06-2930Ufdqlwa encounter khbtgtekd15/10/2024 1:15 PM EDT Office Visit [facility] S[facility] NEUR B [address] [place] [phone] Oz Kincaid MD 53[address] [facility] [address] [address] NOMS SWS NEUR BStart: 01-07-2024 End: 27-55-6797Ferrgnw encounter ossrtlajk89/10/2024 9:45 AM EDT Office Visit [facility] [address] [place] [address] Karl Fritz DPM [address] [place] [address] ArrivedNOMS [facility] PODIATRYComment on above:ArrivedStart: 82-30-0073Meilkl scan of lower limb veinsUS venous duplex [facility] Ohiotart: 14-51-1173IM Lower extremity vein - bilateral [facility]: 00-46-6706WVYOM-19 Vaccine ( season)COVID-19 Vaccine ( season)[facility] Start: 96-78-8865Luydwdtmj vaccinationNewark HospitalStart: 14-92-6157Xpxcl zinc measurementMcKitrick Hospitaltart: 12-02-2023 End: 04-10-0035ExpbrqkdtMcKitrick Hospitaltart: 39-42-1393Ocblhltb to Scl-70 measurementMcKitrick Hospitaltart: 91-47-1915YMV antibody measurementMcKitrick Hospitaltart: 01-76-2664LvhwzzxatMcKitrick Hospitaltart: 11-13-2023 End: 68-78-1050Ntdloadtp aminotransferase [Enzymatic activity/volume] in Serum or Plasma by With P-5'-PAspartate Aminotransferase Lab Routine High risk medication use Expected: 11/13/2023 (Approximate),Expires: 11/12/2024[facility] Service Area Work Phone: Comment on above:Expected: 11/13/2023 (Approximate), Expires: 11/12/2024Start: 11-13-2023 End: 74-25-4221Bvvtx metabolic 2000 panel - Serum or PlasmaBasic Metabolic Panel Lab Routine High risk medication use Expected: 11/13/2023 (Approximate), Expir es: 11/12/2024[facility] Work Phone: Comment on above:Expected: 11/13/2023 (Approximate), Expires: 11/12/2024Start: 11-13-2023 End: 86-17-7275Tsidecte Pulmonary Function Test (Spirometry/DLCO/Lung Volumes) Complete Pulmonary Function Test (Spirometry/DLCO/Lung Volumes) PFT Routine Typical atrial flutter (Multi) Expected: 11/13/2023 (Approximate), Expires: 11/12/2024[facility] Work Phone: Comment on above:Expected: 11/13/2023 (Approximate), Expires: 11/12/2024Start: 11-13-2023 End: 48-65-2278Usdcoyd encounter lgfpytwck93/17/2024 2:00 PM EDT Office Visit [facility] [address] [facility] [address] [place] [address] Jonas Ch MD [address] [facility] [address] [place] [address] [facility] HospitalStart: 11-13-2023 End: 31-67-5975Vpfjqaacjwd [Units/volume] in Serum or PlasmaThyroid Stimulating Hormone Lab Routine High risk medication use Expected: 11/13/2023 (Approximate), Expires: 11/12/2024[facility] Work Phone: Comment on above:Expected: 11/13/2023 (Approximate), Expires: 11/12/2024Start: 11-13-2023 End: 67-23-1778PZ Chest 2 ViewsXR chest 2 views Imaging Routine Typical atrial flutter (Multi) Expected: 11/13/2023 (Approximate),Expires: 11/12/2024[facility] Work Phone: Comment on above:Expected: 11/13/2023 (Approximate), Expires: 11/12/2024Start: 86-76-1230NtkeypiuwOhiohealth CenterStart: 91-96-3780WuagjxyqjOhiohealth CenterStart: 98-20-0503Qxaskqkc identified in Urine by CultureMcKitrick Hospitaltart: 43-24-2336Vdmciwsc to neurologistOhiohealth CenterStart: 65-58-7785Hdmvyqhb admission [facility] CenterStart: 25-63-2472Bcxvrork therapy procedure [facility]: 76-20-8909Zvbelrph to occupational therapistOhiohealth CenterStart: 00-22-8753ZpjiioociOhiohealth CenterStart: 09-84-1291UgkqxzbdkOhiohealth CenterStart: 69-79-5849HwofhwyodOhiohealth CenterStart: 93-87-9120Appli zinc measurementMcKitrick Hospitaltart: 55-79-4929KkjmntcdaMcKitrick Hospitaltart: 10-28-2023 End: 77-98-8109Arueyyognynsx ExternalCardioversion External Cardiac Services Routine Typical atrial flutter (Multi) Expected: 10/28/2023(Approximate), Expires: 10/06/2025[facility] Service Area Work Phone: Comment on above:Expected: 10/28/2023 (Approximate), Expires: 10/06/2025Start: 97-90-1658YrhkshucxMcKitrick Hospitaltart: 40-02-2346Zlfrvhum to cardiologistMcKitrick Hospitaltart: 28-66-6785Dafvizrr admissionMcKitrick Hospitaltart: 12-28-2022 COVID-19 Vaccine ( season)COVID-19 Vaccine () [facility]: 33-91-9300Tncvhgycv for osteoporosisBone Density ScanLima City Hospital: 11-50-4353Jmekrtja tomography of abdomen and pelvis with contrastCT abdomen pelvis w [facility]ertart: 12-17-2021 End: 43-43-6563Xhcehweev department patient visitDeparted EmergencyOhiohealth Ctr-Emergency RoomStart: 47-00-4874LsiqwhhgeOhiohealth Ctr Work Phone: Start: 48-79-8041Zfyuchgn to urologistOhiohealth Ctr Work Phone: Start: 08-70-2416Kmoriiog to general surgeonOhiohealth Ctr Work Phone: Start: 86-37-1465Lmdnjqnw admissionMadison Health Work Phone: Start: 75-71-0730Urcnrijkt for malignant neoplasm of breastMammogramL[facility] Hospital: 53-60-8555KEV High Risk: (Elderly (60+) or Population) (1 - Risk 60-74 years 1-dose series)RSV High Risk: (Elderly (60+) or Population) (1 - Risk 60-74 years 1-dose series)[facility]: 34-76-8443ILY patients and/or patients aged 60+ years (1 - 1-dose 60+ series)RSV patients and/or patients aged 60+ years (1 - 1-dose 60+ series)[facility]: 92-68-5562Gdjkru Vaccines (1 of 2)Zoster Vaccines (1 of 2) [facility]: 00-01-2573BTdO/Tdap/Td Vaccines (1 - Tdap)DTaP/Tdap/Td Vaccines (1 - Tdap)[facility]: 59-58-6819Rpumaanhx for malignant neoplasm of cervixUnGenesis Hospital: 45-61-3915Isbfimezdlrs vaccinationPneumococcal Vaccine (1 of 2 - PCV)[facility]: 01-47-5361Snofj screening for proteinDiabetes: Urine Protein ScreeningL[facility] City Hospital: 73-90-0581Uvtredlyv C screeningHepatitis C ScreeningUnGenesis Hospital: 16-82-6981Wuwjmmcs foot examinationDiabetes: Foot ExamUnGenesis Hospital: 27-30-1305Rbsnfdgm screeningDiabetes: Retinopathy ScreeningUnGenesis Hospital: 04-56-9907Ixbtxveipvkt Vaccine: 65+ Years (1 of 2 - PCV)Pneumococcal Vaccine: 65+ Years (1 of 2 - PCV) [facility]: 30-80-6800BIG Vaccines (1 of 1 - Standard series)MMR Vaccines (1 of 1 - Standard series)[facility]: 29-71-2334Rwpnhd wellness visitUnParma Community General Hospital Start: 49-04-9323Uahbwrhdic A1c measurementDiabetes: Hemoglobin D0MWqjqcssccpGenesis Hospital: 96-60-7552Vadtq panelLipid PanelUnGenesis Hospital: 07-30-1958Medicare Annual Wellness VisitMedicare Annual Wellness Visit (AWV)[facility]: 1955 Screening for malignant neoplasm of colonUnformerly [facility] ClevelandStart: 76-45-7511Kchorkmmi for osteoporosisBone Density ScanL[facility] Hospital: 00-47-9734Adbgbrt stimulating hormone measurementTSAdena Health System: 13-19-8757Gxpwc screening for protein Diabetes: Urine Protein ScreeningNewark Hospital24 hour urine measurementLancaster Municipal HospitalAlbumin [Mass/volume] in Serum or PlasmaLancaster Municipal HospitalAlbumin/Globulin ratioLancaster Municipal HospitalAldolase measurementLancaster Municipal HospitalAngiotensin converting enzyme [Enzymatic activity/volume] in Serum or PlasmaLancaster Municipal HospitalAntibody measurementLancaster Municipal Hospital Arsenic measurementLancaster Municipal HospitalBacteria identified in Unspecified specimen by Aerobe cultureLancaster Municipal HospitalBacteria identified in Unspecified specimen by Aerobe cultureLancaster Municipal HospitalBorrelia burgdorferi Ab [Interpretation] in SerumLancaster Municipal HospitalBorrelia burgdorferi IgG Ab [Presence] in Serum or Plasma by ImmunoassayLancaster Municipal HospitalBorrelia burgdorferi IgG+IgM Ab [Presence] in Serum by ImmunoassayLancaster Municipal HospitalBorrelia burgdorferi IgM Ab [Presence] in Serum or Plasma by ImmunoassayLancaster Municipal HospitalCentromere protein B Ab [Units/volume] in SerumLancaster Municipal HospitalCeruloplasmin [Mass/volume] in Serum or PlasmaLancaster Municipal HospitalCeruloplasmin [Mass/volume] in Serum or [facility] ColumbusComplement C3 [Mass/volume] in Serum or [facility] ColumbusComplement C4 [Mass/volume] in Serum or [facility] ColumbusComprehensive metabolic 1999 panel - Serum or Plasma [facility] HospitalComprehensive metabolic 1999 panel - Serum or [facility] ColumbusComprehensive metabolic 1999 panel - Serum or [facility] ColumbusCopper [facility] Community HospitalCryoglobulin [Presence] in SerumLancaster Municipal HospitalCT Unspecified body [facility] HospitalDBT Breast - bilateral screeningBilateral screening mammogram with tomosynthesis Imaging Routine Encounter for gynecological examination Breast cancer screening by mammogram Ordered: 02/02/2025NOTexas County Memorial HospitalComment on above:Ordered: 02/02/2025DXA Skeletal system.axial Views for bone densityLancaster Municipal HospitalElectrophoresis: yzjla-6-iihzzdspFpthlhldgLancaster Municipal Hospital Electrophoresis: opmoc-0-vpninjuoVnvinkrhgLancaster Municipal Hospital Electrophoresis: beta-globulinLancaster Municipal HospitalElectrophoresis: gamma globulinLancaster Municipal HospitalFLOWCYTOMETRY NEOGENOMIC FLOWCYTOMETRY NEOGENOMIC Lab Routine 06/26/2024 10:44 AM [facility] Work Phone: Globulin [Mass/volume] in SerumLancaster Municipal HospitalGlucose measurement estimated from glycated hemoglobinLancaster Municipal HospitalHesan dimas community hospital A virus antibody, IgM typeMercy Health B core antibody measurement, IgM [facility] B virus surface Ag [Presence] in Serum or Plasma by ImmunoassayLancaster Municipal HospitalHesan dimas community hospital C virus IgG Ab [Presence] in Serum or Plasma by ImmunoassayLancaster Municipal HospitalHesan dimas community hospital C virus RNA [log units/volume] (viral load) in Serum or Plasma by TEJINDER with probe detectionLancaster Municipal HospitalHesan dimas community hospital C virus RNA [Units/volume] (viral load) in Serum or Plasma by TEJINDER with probe detectionLancaster Municipal HospitalHistone IgG Ab [Units/volume] in Serum by ImmunoassayLancaster Municipal HospitalHIV 1+2 Ab+HIV1 p24 Ag [Presence] in Serum or Plasma by ImmunoassayLancaster Municipal HospitalHomocysteine [Moles/volume] in Serum or PlasmaLancaster Municipal HospitalHomogenous nuclear Ab pattern [Titer] in SerumLancaster Municipal HospitalHomogenous nuclear Ab pattern [Titer] in SerumLancaster Municipal HospitalIgA [Mass/volume] in Serum or Plasma [facility] HospitalIgG [Mass/volume] in Serum or PlasmaLancaster Municipal HospitalIgM [Mass/volume] in Serum or PlasmaLancaster Municipal HospitalIGP, APT HPV,RFX 16/18,45IGP, APT HPV,RFX 16/18,45 Lab Routine Encounter for gynecological examination without abnormal finding Encounter for screening for cervical cancer Ordered: 02/02/2025[facility] Work Phone: comment on above:Ordered: 02/02/2025IGP, APT HPV,RFX 16/18,45IGP, APT HPV,RFX 16/18,45 Lab Routine Vaginal lesion Encounter for gynecological examination without abnormal finding Encounter for screening for cervical cancer Ordered: 02/02/2025[facility] CenterComment on above:Ordered: 02/02/2025Immunofixation for UrineLancaster Municipal HospitalJo-1 extractable nuclear Ab [Units/volume] in SerumLancaster Municipal Hospital Lead [Presence] in BloodLancaster Municipal HospitalLutropin [Units/volume] in Serum or PlasmaLancaster Municipal HospitalMeasurement of monoclonal protein concentrationLancaster Municipal HospitalMercury [Mass/volume] in BloodLancaster Municipal HospitalMethylmalonate [Moles/volume] in Serum or PlasmaLancaster Municipal HospitalMG Breast - bilateral ScreeningLancaster Municipal HospitalMG Breast - bilateral ScreeningLancaster Municipal HospitalMitochondria M2 IgG Ab [Units/volume] in SerumLancaster Municipal HospitalMR Cervical spine WO contrastLancaster Municipal HospitalMR Thoracic spineLancaster Municipal HospitalMyeloperoxidase Ab [Units/volume] in Serum by ImmunoassayLancaster Municipal HospitalNeutrophil cytoplasmic Ab.classic [Titer] in Serum by ImmunofluorescenceLancaster Municipal HospitalNuclear Ab [Titer] in SerumLancaster Municipal HospitalNuclear Ab [Titer] in SerumLancaster Municipal HospitalP-ANCA measurementLancaster Municipal HospitalPathology ReportPathology Report Pathology and Cytology Routine Vaginal lesion Ordered: 02/02/2025[facility] CenterComment on above: Ordered: 02/02/2025Patient EducationOhiohealth Ctr Work Phone: Patient referralOhiohealth Ctr Work Phone: Porphobilinogen [Mass/volume] in UrineLancaster Municipal HospitalProtein [Mass/volume] in Serum or PlasmaLancaster Municipal HospitalProtein [Mass/volume] in UrineLancaster Municipal HospitalProteinase 3 Ab [Units/volume] in Serum by ImmunoassayLancaster Municipal HospitalPyridoxine [Mass/volume] in Serum or PlasmaLancaster Municipal HospitalReagin Ab [Presence] in Serum by RPThe University of Toledo Medical CenterRheumatoid factor [Units/volume] in Serum or PlasmaLancaster Municipal HospitalRibosomal P Ab [Units/volume] in [facility] Hospitalerum immunofixationMcKitrick Hospitaljogrens syndrome-A extractable nuclear Ab [Units/volume] in [facility] Sjogrens syndrome-B extractable nuclear Ab [Units/volume] in SerumMcKitrick Hospitalmith extractable nuclear Ab [Units/volume] in Serum [facility] HospitalUPERFICIAL WOUND CULTURE ([facility] Work Phone: comment on above:Ordered: 11/16/2024Thallium [Mass/volume] in Serum or PlasmaLancaster Municipal HospitalWest Nile virus IgG Ab [Presence] in Serum by ImmunoassayLancaster Municipal HospitalWest Nile virus IgM Ab [Presence] in Serum by ImmunoassayMarshfield Medical Center Beaver Dam Immunizations Immunization DateImmunizationNotesCare EytprcavFfvkgihd81-77-5198koaznyr, mumps and rubella virus vaccineGlHolzer Health System Other [facility] HospitalNEGATED: Highlighted row has not occurred!57-51-0309Ssb Shot - Documentation Purposes OnlyGlsenait Keita Other [employer] Other NEGATED: Highlighted row has not occurred!04-16-2022 influenza, seasonal, injectablePatient ObjectionGlsenait Keita Other [facility] Payers DatePayer CategoryPayerPolicy [id number] [id number] Eligibility Medicare/Medicaid [id number] Health InsuranceUNMERCY [facility] DUAL COMPLETE [facility] DUAL COMPLETE [id number] 2023-Present P Kelly Benitez [address] [place] [address] [id number] [id number] 2..[id number] 2023Medicare1.2.840.508512.1.13.693.2.7.3.016957.315 2023Medicare (Managed Care)[employer] MEDICARE Member Subscriber Plan / Payer (Effective 2022-Present) Name: Taye Gay Relation to Subscriber: Self Name: Taye Gay Subscriber ID: [id number] Payer ID: [id number] (NAIC) Group ID: Not on file Type: Not on file Address: [address] [place] [id number] [id number] Health [id number] 2022Medicaid1.2.840.166806.1.13.647.2.7.3.631240.33412-01-7043Ujpp Cross Blue [id number] 2..840.9.95393[id number] [id number] [id number] 2..840.1.838944.3.57[id number] 2.16840.1.408950.3.57[id number] 2.16840.1.822326.3.57[id number] 2.16840.1.839095.3.57[id number] 2.16840.1.576968.3.57[id number] 2.0.1.525105.3.57[id number] 2.0.1.544685.3.57[id number] 2.0.1.219013.3.57[id number] 2.0.1.323117.3.579.[id number] 2..1.615014.3.579.[id number] 2.0.1.584312.3.57[id number] 2.0.1.585465.3.57[id number] 2.0.1.100276.3.57[id number] 2.840.1.280596.3.57[id number] 2.840.1.898238.3.57[id number] 2.16.840.1.352272.3.579.[id number] 2.0.1.532848.3.579.2.[id number] 2.0.1.555510.3.579.2.872188-27-2070Vhmqjcw27742075 2..1.117913.3.579.2.3[id number] 2..1.886636.3.579.2.474771-04-4422Hvlwcjh6911892 2..1.911720.3.579.2.093741-32-1851Ftlhxsn5101845 2..1.528341.3.579.2.577672-80-3858Ybbfful5235506 2..1.790481.3.579.2.819742-84-9479Gidjhgv9775104 2..1.71739[id number] 2..1.385257.19Unknown [id number] 2.0.1.463721.3.579.2.450Hffrpbr75221499 2.0.1.09096[id number] 2.0.1.723087.3.579.2.531 [id number] 2.840.1.331356.3.579.2.672Vdesqhd89502434 2.840.1.9[id number] 2.840.1.784826.3.579.2.531 [id number] 2.16.840.1.163017.3.579.2.209Fkqeyoh72137444 2.16.840.1.407972.3.579.2.589Vktvmhl81170134 2.16.840.1.875090.3.579.2.531 [id number] 2.16.840.1.905021.3.579.2.087Vbgyffm67053174 2.16.840.1.969588.3.579.2.149Wsslinw88703138 2.16.840.1.856050.3.579.2.531 Social History DateTypeDetailFacilityUnknown if ever smokedHunt [employer] Other Start: 10-07-2023 End: 84-75-4640Zqx Assigned At [facility] [employer] Other Start: 12-17-2021 End: 48-21-1664Awxvxbw smoking status NHISSmoker (finding)[facility]: 87-90-6153Qzq [facility] At [facility]: 04-[birth year]-1975 End: 61-99-7146Uizkenu smoking status NHISSmokes tobacco dailyUnParma Community General HospitalStart: 14-74-5738Cfogpat of tobacco useCigarette Smoker [facility] Work Phone: Start: 32-61-3949Fuiawem use and exposureSmokeless tobacco non-userUnParma Community General Hospital Work Phone: Start: 10-07-2023 End: 57-43-6719Azsduscsj beverage intakeLifetime non-drinker (finding)[facility] Work Phone: Start: 10-07-2023 End: 78-08-3269[place] of Social functionUnParma Community General Hospital Work Phone: Start: 22-76-2421Asn assigned at birthNot on file [facility] Work Phone: Start: 09-27-2023 End: 83-66-8342Kpxueifc to SARS-CoV-2 (event)Not sureNewark HospitalStart: 01-29-2023 End: 32-21-6047Ygdjgmz use and exposureUser of smokeless tobaccoNOMS Healthcare Start: 28-54-2229Bhtjovf CommentSmokes 11-20 cigs per dayNOMS HealthcareStart: 21-29-1971Oaaytkw Commentcaffeine intake: occasionalNOMS HealthcareStart: 04-29-2024 End: 63-43-6900XurOxvryv (finding)[facility]: 07-11-2022 End: 65-36-6709QmzKspryiEwiouslwqgOhioHealth [facility] Medical Equipment Procedure CodeEquipment CodeEquipment Original TextEquipment IdentifierDates Start: 93-16-6360Ona Needle, Diabetic (Novofine 32) 32 gauge x 1/4 needleStart: 92-75-4922Idv Needle, Diabetic (Novofine 32) 32 gauge x 1/4 needleStart: 13-15-9485Ncx Needle, Diabetic (Novofine 32) 32 gauge x 1/4 needleStart: 51-48-3499Fmh Needle, Diabetic (Novofine 32) 32 gauge x 1/4 needleStart: 10-77-4198Xvi Needle, Diabetic (Novofine 32) 32 gauge x 1/4 needleStart: 32-67-5898Fib Needle, Diabetic (Novofine 32) 32 gauge x 1/4 needleStart: 37-84-6900Kqc Needle, Diabetic (Novofine 32) 32 gauge x 1/4 needleStart: 01-92-3597Guc Needle, Diabetic (Novofine 32) 32 gauge x 1/4 needleStart: 01-16-4512Utx Needle, Diabetic (Novofine 32) 32 gauge x 1/4 needleStart: 91-04-0971Lev Needle, Diabetic (Novofine 32) 32 gauge x 1/4 needleStart: 19-07-5051Fez Needle, Diabetic (Novofine 32) 32 gauge x 1/ needleStart: 08-20-2024 Goals DatePatient GoalDesired Activity/State Functional Status ZizkZzssixbippZevcouTzbnucdr60-26-8059Hvcdqaqqoc statusPatient at [facility] Work Phone: [phone]) [phone]pmmffvhv statusPatient at Baseline [facility] Work Phone: 1(783) [phone]rslabfd statusPatient at Baseline [facility] Work Phone: 1(473) [phone]lnitfsab statusPatient at Baseline [facility] Work Phone: Mental Status LvrzBdhmndycuaIpicjsXdpqyegc13-21-4407Ldgfsuioh functionCognitive Status Patient at [facility] Work Phone: [phone]) [phone] functionCognitive Status Patient at [facility] Work Phone: 1(882) [phone]qachnjg functionCognitive Status Patient at [facility] Work Phone: [phone]) [phone]ldikfs functionCognitive Status Patient at [facility] Work Phone: Clinical Notes 02-27-2021 to 02-09-2025 Note Date & NwefDgqmLxgzsmam98-08-5923 History of Present illness Narrative* Linwood Irwin [...] NEGATIVE FOR FUNGAL ORGANISMS, ATYPIA, AND MALIGNANCY. [facility] 02/04/2025 0846 Local History of Present Illness Taye presents for follow-up of skin lesions that have been previously biopsied The patient had multiple lesions including a small spot that has resolved with bx, The patient has a follow-up appointment scheduled for the with Dr Best [facility] oncology to assess ongoing treatment needs. Visit [...] Gluc Sensor (FreeStyle Brent 14 Day Sensor) [facility], apply 1 SENSOR as directed every14 days [...] Disp: 60 tablet, Rfl: 5 Droplet [place] 32G X 4 MM [facility], use 1 PEN NEEDLE to inject MEDICATION [...] COLPOSCOPY 09/2021 ESOPHAGEAL DILATION HYSTERECTOMY PARTIAL HYSTERECTOMY MN VULVECTOMY SIMPLE PARTIAL 12/[address] [facility] [address] Joaquin [...] cigs per day documented in this encounterSaint John's Breech [facility] Medical CenterYgskiyhhzl98-12-6878 History of Present illness Narrative* Linwood Irwin [...] surgery for pre-cancerous conditions in [facility], including a vulvectomy The patient has [...] Gluc Sensor (FreeStyle Brent 14 Day Sensor) [facility], apply 1 SENSOR as directed every14 days [...] Disp: 60 tablet, Rfl: 5 Droplet [place] 32G X 4 MM [facility], use 1 PEN NEEDLE to inject MEDICATION [...] COLPOSCOPY 09/2021 ESOPHAGEAL DILATION HYSTERECTOMY PARTIAL HYSTERECTOMY MN VULVECTOMY SIMPLE PARTIAL 12/2018 TONSILLECTOMY VULVECTOMY 12/2017 [...] including a bone rect elisabeth performed in [place]. The lesions are described as looking like [...] ordered and scheduled Referral to Dr Cordoba [facility] for recurrent lesion Assessment & Plan documented in this [facility]10-07-2025 Radiology Diagnostic study [facility] [place] [address] [place] [address] CT Scan Report Signed Patient: Taye Gay MR#: [id number] : 1955 Acct:[id number] Age/Sex: 69 / F ADM Date: 5 Loc: CT Room: Type: [facility] Attending Dr: CHERYL Palacios APRN Copies [...] Jr., D.OKenisha 02/02/2025 12:36 PM Dictation Location: [place] [address] Transcribed By: [facility] 02/02/25 1236 Dictated By: Edgar Segovia Jr, DO 02/02/25 1232 Signed By: 02/02/25 1236 [facility]09-23-2025 History of Present illness Narrative * [...] -> medical office). Imaging MR L-s (11/2023, [facility]) - HNP T12-L1 mild ... errol L5-S1 modB . . . . (11/2023, [facility]) - HNP T12-L1 mild ... canal sten L2-3 mod ... errol sten L2-3 modB L4-5-S1 modB US LE (12/2016, [place]) - atherosclerosis, nl PVR. Testing ENMG (11/2024) - acute L L5-S1 + PN sev . . . . (11/2023) - acute L S1 (nEMG) + PN pattern signif worse . . . . (03/2017, [facility]) - PN pattern Labs - Q83=337/15/116/>22.3, was 359/16.7H/328/>22.3 ... A1c=8.4, was 10.4(!) ,,, [...] - end of Mar pt adm to [facility] for gen weakness & slurred speech, resolved [...] MR brain (03/2024) - never done during [facility] due to metal . . . . (10/2023, [facility]) - atrophy age-appropriate & ^T2/FLAIR CTA head (03/2024, [facility]) - no stenoses CTA neck(03/2024, [facility]) - < 20% B Testing (q.v.) ... [...] Motor - TA 5-L, unchanged: ___, orig: [place] 4B ... APB 4R 4+L Sens - [...] COLPOSCOPY 09/2021 ESOPHAGEAL DILATION HYSTERECTOMY PARTIAL HYSTERECTOMY MN VULVECTOMY SIMPLE PARTIAL 12/2018 TONSILLECTOMY VULVECTOMY 12/2017 [...] Gluc Sensor (FreeStyle Brent 14 Day Sensor) [facility] apply 1 SENSOR as directed every 14 days use with DEVICE to MONIT... (REFER TO PRESCRIPTION NOTES). cyanocobalamin (Vitamin B-12) 2500 MCG tablet Docusate Sodium (DSS) 100 MG capsule Take 100 mg by mouth in the morning and 100 mg in the evening. donepezil (Aricept) 10 MG tablet 2 tabs QAM 60 tablet 5 Droplet [place] 32G X 4 MM [facility] [...] ? [address] ? [place], [place] [address] ? ? fax Neurology ? Clinical Neurophysiology ? Epilepsy ? Sleep Disorders ? Clinical Informatics documented in this encounterSaint John's Breech Regional Medical CenterQcextrykle08-52-9234 History of Present illness Narrative* Roland Faust [...] exam, discussion and plan. documented in this encounterNewark Hospital Work Phone: 1([phone]) 370-313009-03-2025 Instructions* Patient Instructions* Edilma Menezes LPN - [...] through Care Everywhere. * Heart Healthy Diet (Maldivian) * Quitting smoking (Maldivian) documented in this encounterNewark Hospital Work Phone: 1(620) 809-846708-22-2025 History of Present illness Narrative* Oz Kincaid MD - 12/18/2024 1:15 PM EDT [facility] Patient: Taye Gay [address], [address] , Sex: 1955, Female [place], [place] [address] Height: 168 cm Ref Phys: Debbie Kincaid [...] Doub=doublet; Fasc=fasciculation; FFE=full for effort; Fib=fibrillation; Myokym=myokymia; Allison=myotonic potential; N,0=normal; NR=no response; Polyph=polyphasia; Pos=positive [sharp] wave; RFU=rapidly firing units; Serr =serrated potential (2<phases<5); W&W=waxing and waning pattern INTERPRETATION: This study reveals ENMG evidence of a chronic, neuropathic, axonal, sensory > motor process affecting all lower extremity nerves tested. Needle examination demonstrates a ltzdze-sq-jodquvar gradient that is most suggestive of peripheral [...] of any radiculopathy. Oz Kincaid M.D. Diplomate, [place] [employer] and Neurology (neurology, epilepsy, sleep medicine) Diplomate, [place] Board of Clinical Neurophysiology Diplomate, [place] [employer] of Preventive Medicine (clinical informatics) . documented in this [facility]08-19-2025 Evaluation note* Diagnosis Onset Date Resolution Status [...] 2024 1:23pmVitamin B 12 deficiencyacuteSeptember 2024 1:23pm [facility] Work Phone: [phone] 783-120208-19-2025 Evaluation note* Diagnosis Onset Date Resolution Status [...] 2:19pmDepressionacuteSeptember 2024 2:19pm Lesion of spleenacuteSept2024 2:19pm [facility] Work Phone: [phone] History of Present illness Narrative* Oz Kincaid MD - 12/11/2024 1:15 PM EDT [facility] Patient: Taye Gay [address], [address] , Sex: 1955, Female [place], [place] [address] Height: 168 cm Ref Phys: Debbie Kincaid [...] Doub=doublet; Fasc=fasciculation; FFE=full for effort; Fib=fibrillation; Myokym=myokymia; Allison=myotonic potential; N,0=normal; NR=no response; Polyph=polyphasia; Pos=positive [sharp] [...] -- 36 40 Oz Kincaid M.D. Diplomate, [place] [employer]iat[employer] and Neurology (neurology, epilepsy, sleep medicine) Diplomate, [place] [employer] of Clinical Neurophysiology Diplomate, [place] [employer] Preventive Medicine (clinical informatics) . documented in this encounterSaint John's Breech Regional Medical CenterWbomqellhb24-97-6035 History of Present illness Narrative* Karl Fritz, [...] if she does decline. documented in this [facility]07-21-2025 History of Present illness Narrative* Karl Fritz [...] their surgery date. documented in this encounterSaint John's Breech [facility] Medical CenterWjifxlgoqv58-56-4960 Telephone encounter Note* Telephone Encounter - Cali Duque - 10/21/2024 2:44 PM EDT Patient canceled 10/23/24 EMG on 10/20/24 due to an appointment conflict. [facility] CenterMovbgaleqd85-01-5660 Miscellaneous Notes* Telephone Encounter - Cali Duque - 10/21/2024 2:44 PM EDT Patient canceled 10/23/24 EMG on 10/20/24 due to an appointment conflict. documented in this encounterSaint John's Breech [facility] Medical CenterGkqyhlgfzf60-47-5520 History of Present illness Narrative* Karl Fritz [...] with ulceration and/or pain. documented in this [facility]06-11-2025 Telephone encounter Note* Telephone Encounter - Cali Laneshreyas - 10/07/2024 3:49 PM EDT Received call from [facility] with [facility] they are happy to take her as a client. [facility] Dmdpesgxqz46-17-2041 Miscellaneous Notes* Telephone Encounter - Cali Laneshreyas - 10/07/2024 3:49 PM EDT Received call from [place] with [facility] they are happy to take her as a client. documented in this [facility]06-10-2025 History of Present illness Narrative* Oz Kincaid [...] 6 weeks (around 11/17/2024), or 6-8 w NAPRAPATH; after ENMGs. History of Present Illness, Associated [...] restlessness; gait ataxia. Imaging MR Yao-s (11/2023, [facility]) - HNP T12-L1 mild ... canal sten L2-3 mod ... errol sten L2-3 modB L4-5-S1 modB US LE (12/2016, [facility]) - atherosclerosis, nl PVR. Testing ENMG (11/2023) - acute L S1 (nEMG) + PN pattern signif worse . . . . (03/2017, [facility]) - PN pattern Labs - P90=497/15/116/>22.3, was 359/16.7H/328/>22.3 ... A1c=8.4, was 10.4(!) ,,, [...] - end of Mar pt adm to [facility] for gen weakness & slurred speech, resolved [...] brain (03/2024) - never done during adm [facility] due to metal . . . . (10/2023, [facility]) - atrophy age-appropriate & ^T2/FLAIR CTA head (03/2024, [facility]) - no stenoses CTA neck(03/2024, [facility]) - < 20% B Testing (q.v.) ... [...] ___, unchanged: ___, orig: ___ Motor - [place] 4-R 4L ... APB 4B ... LEs - 4+ throughout (worse), somewhat antalgic, unchanged: ___, orig: Superintendent [place] 4B ... APB 4R 4+L Sens - [...] COLPOSCOPY 09/2021 ESOPHAGEAL DILATION HYSTERECTOMY PARTIAL HYSTERECTOMY MN VULVECTOMY SIMPLE PARTIAL 12/2018 TONSILLECTOMY VULVECTOMY 12/2017 [...] Take with meals. Continuous Blood Gluc Sensor ([employer]Style Brent 14 Day Sensor) [facility] apply 1 SENSOR as directed every 14 days use with DEVICE to MONIT... (REFER TO PRESCRIPTION NOTES). cyanocobalamin (Vitamin B-12) 2500 MCG tablet Docusate Sodium (DSS) 100 MG capsule Take 100 mg by mouth in the morning and 100 mg in the evening. donepezil (Aricept) 10 MG tablet 2 tabs QAM 60 tablet 5 Droplet [place] 32G X 4 MM [facility] [...] Oz Kincaid M.D. [facility] ? [address] [facility] [address] [facility] [address] ? [place], [place] [address] ? ? fax Neurology ? Clinical Neurophysiology ? Epilepsy ? Sleep Disorders ? Clinical Informatics documented in this [facility]06-05-2025 Evaluation note* Diagnosis Onset Date Resolution Status Admit Date Atrial fibrillation acuteJune 2024 2:34pmCardiomyopathyacuteJune 2024 2:34pmCongestive heart failureacuteJune 2024 2:34pmDaytime sleepinessacuteJune 2024 2:34pmHypertensionacuteJune 2024 2:34pmHypothyroidacuteJune 2024 2:34pmIntolerance to BiPAP/CPAPacuteJune 2024 2:34pmMajor depression, chronicacuteJune 2024 2:34pmOSA (obstructive sleep apnea)acuteJune 2024 2:34pmSecondary polycythemiaacuteJune 2024 2:34pmAllergy to honey bee venomacuteAugust 2024 1:46pmDepressionacuteAugust 2024 1:46pm [facility] Work Phone: [phone] 686-361506-05-2025 Evaluation note* Diagnosis Onset Date Resolution Status [...] 2024 1:46pm Wound of footacuteAugust 2024 1:46pm [facility] Work Phone: 1(342) 447-796805-15-2025 [place] [address] EGD Procedure Note Signed Patient: Taye Gay MR#: [id number] : 1955 Acct:[id number] Age/Sex: 68 / F Adm Date: 5 [...] MD 09/10/24 1241 Signed By: 09/10/24 1245 [facility]05-15-2025 [place] [address] Gastroenterology H&P Signed Patient: Taye Gay MR#: [id number] : 1955 Acct:[id number] Age/Sex: 68 / F Adm Date: 5 [...] MD 09/10/24 1233 Signed By: 09/10/24 1241 [facility]04-29-2025 Chief complaint+Reason for visit Narrative* Chief [...] polycythemia October 01, 2024 2: 34pm [facility] Work Phone: 1([phone]) 403-338804-24-2025 Evaluation note* Diagnosis Onset Date Resolution Status [...] apnea)acuteJun2024 2:34pmSecondary polycythemiaacute October 01, 2024 2:34pm [facility] Work Phone: 1(244) 607-134303-26-2025 Evaluation note* Diagnosis Onset Date Resolution Status Admit Date Cigarette nicotine dependence acuteMarch 2024 10:54amCurrent every day smokeracuteMarch 2024 10:54amPAD (peripheral artery disease)acuteMarch 2024 10:54amBMI 32.0-32.9,adultacuteApril 2024 9:57amChronic kidney disease (CKD) stage G2/A2, mildly decreased glomerular filtracuteApril 2024 9:57amDietary counseling and surveillanceacuteApril 2024 9:57amHyperlipidemiaacuteApril 2024 9:57amHypertensionacuteApril 2024 9:57amPeripheral neuropathy acuteApril 2024 9:57amType 2 diabetes mellitusacuteApril 2024 9:57am Vitamin B 12 deficiencyacuteApril 2024 9:57am [facility] Work Phone: 1([phone]) 473-755903-26-2025 Evaluation note* Diagnosis Onset Date Resolution Status [...] artery disease)acuteApril 2024 1:31pmPeripheral neuropathyacuteApril 2024 1:31pm [facility] Work Phone: [phone]) 118-283503-26-2025 Evaluation note* Diagnosis Onset Date Resolution Status [...] 1:31pmLumbar spondylosisacute September 07, 2024 11:01am [facility] Work Phone: 1([phone]) 695-740003-26-2025 Evaluation note* Diagnosis Onset Date Resolution Status [...] sleep apnea)acuteJune 2024 2:34pmSecondary polycythemiaacuteJune 2024 2:34pm [facility] Work Phone: [phone] 500-505903-25-2025 History of Present illness Narrative* Oz Kincaid MD - 07/21/2024 2:45 PM EDTAssociated Problem(s): Cognitive decline (Continue current regimen.) [facility] records - neuro consults, EEG, [...] & Plan Cognitive decline (Continue current regimen.) [facility] records - neuro consults, EEG, [...] restlessness; gait ataxia. Imaging MR Keller (11/2023, [facility]) - HNP T12-L1 mild; canal sten L2-3 mod; errol sten L2-3 modB L4-5-S1 modB US LE (12/2016, [facility]) - atherosclerosis, nl PVR. Testing [facility] (11/2023) - acute L S1 (nEMG) + PN pattern signif worse . . . . (03/2017, [facility]) - PN pattern Labs - S52=429/15/116/>22.3, was 359/16.7H/328/>22.3 ... A1c=8.4, was 10.4(!) ,,, [...] now that pt is off nortrip. Adm [facility] ~XAVIER for possible TIA. Walking drunk , Tim. 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 Imaging MR brain (10/2023, [facility]) - not available via [facility] - atrophy age- appropriate & ^T2/FLAIR [...] ___, orig: ___ Motor - ___, unchanged: Superintendent [place] 4B ... APB 4R 4+L, orig: ___ [...] smear of cervix hpv positive COVID-19 Diabetes ([facility]/HCC) Fibromyalgia High cholesterol ([facility]) History of medical problems ulcer HTN (hypertension) (CMS/HCC) Neuropathy Rheumatoid arthritis (CMS/HCC) Scarlet fever Stomach ulcer Tonsillitis Past Surgical History: Procedure Laterality Date BIOPSY 04/2020 vulvar CARPAL TUNNEL RELEASE Right 2018 COLPOSCOPY 01/21/2017 COLPOSCOPY 09/2018 COLPOSCOPY 10/2019 COLPOSCOPY 09/2021 ESOPHAGEAL DILATION HYSTERECTOMY PARTIAL HYSTERECTOMY MN VULVECTOMY SIMPLE PARTIAL 12/2018 TONSILLECTOMY VULVECTOMY 12/2017 [...] Take with meals. Continuous Blood Gluc Sensor ([employer] Brent 14 Day Sensor) [facility] [...] if tolerated 60 tablet 3 Droplet [place] 32G X 4 MM [facility] [...] M.D. [facility] ? [address] [facility] [address] ? [place] [id number] ? ? fax Neurology ? Clinical Neurophysiology ? Epilepsy ? Sleep Disorders ? Clinical Informatics documented in this encounterSaint John's Breech Regional Medical CenterZeboalxbxj55-85-2692 History of Present illness Narrative* Roland Faust [...] exam, discussion and plan. documented in this [facility] Work Phone: 1(173) 779-367202-28-2025 Instructions* Patient Instructions* Melina Lee LPN - [...] 6 months with ekg documented in this encounterNewark Hospital Work Phone: 1(137) 345-303901-21-2025 Telephone encounter Note* Telephone Encounter - Cali Duque - 05/19/2024 11:20 AM EST Daughter same day canceled same day canceled today's appointment due to overslept. RS for 06/02/24 [facility] Gqigcqiucb24-49-2173 Miscellaneous Notes* Telephone Encounter - Cali Duque - 05/19/2024 11:20 AM EST Daughter same day canceled same day canceled today's appointment due to overslept. RS for 06/02/24 documented in this encounterSaint John's Breech [facility] Medical CenterRyosdzibxi17-12-4709 [place] [address] Neurology Progress Note Signed with Jamila Patient: Taye Gay MR#: [id number] : 1955 Acct:[id number] Age/Sex: 68 / F Adm Date: 4 Loc: 3T Room: [address] [place] [address] Type: ADM IN Attending Dr: Priscilla Lang MD Copies to: ~ ADDENDUM1 Patient has refused to remove her nail nepali for MRI. Unable to confirm whether or [...] may be metabolic in nature and not inbound sales representative necessarily of transient ischemia or [...] DO 5 0608 Signed By: 04/30/24 0708 [facility]01-02-2025 Discharge summary Author Priscilla Lang [facility] HospitalNote Date/TimeJanuary 2024 10:28am [place] [address] Discharge Summary Signed Patient: Taye Gay MR#: [id number] : 1955 Acct:[id number] Age/Sex: 68 / F Adm Date: 4 Loc: 3T Room: [address] [place] [address]: Priscilla Lang MD Copies to: DO Priscilla Daniels MD~ Providers Date of Discharge: 04/30/24 Discharging Provider: Pirscilla Lang Primary Care Provider: Sandra Keita Consults: [...] taking multiple medications that could potentially cause IS ARCHITECT side effect and toxic encephalopathy. Diagnosis is [...] polypharmacy regimen to reduce her risk of IS ARCHITECT side effects or drug?drug interaction.At this time, [...] ask her primary care doctor to obtain [facility] record entirely to address abnormalities seen [...] ask your primary care provider to obtain [facility] records entirely to follow up on all [...] or having drug?drug interaction. Discharging you from [facility] does not mean that your medical care [...] constipation) (DME) pen needle, diabetic [Sure-Fine [place]] .Route lidocaine 5 % ointment 1 applic [...] % (Auto) 63.5, Lymph % (Auto) 24.9, [place] % (Auto) 8.3, Eos % (Auto) 2.9, Baso % (Auto) 0.4, Nucleat RBC Rel Count 0.0, Neut # (Auto) 4.6, Lymph # (Auto) 1.8, [place] # (Auto) 0.6, Eos # (Auto) 0.2, [...] <Electronically signed by Priscilla Lang MD> 04/30/24 1027 [facility] Work Phone: 1(680) 299-871101-02-[address] [address] Discharge Summary Signed Patient: Taye Gay MR#: [id number] : 1955 Acct:[id number] Age/Sex: 68 / F Adm Date: 4 Loc: 3T Room: [address] [place] [address]: Priscilla Lang MD Copies to: [...] taking multiple medications that could potentially cause IS ARCHITECT side effect and toxic encephalopathy. Diagnosis is [...] polypharmacy regimen to reduce her risk of IS ARCHITECT side effects or drug?drug interaction.At this time, [...] ask her primary care doctor to obtain [facility] record entirely to address abnormalities seen [...] ask your primary care provider to obtain [facility] records entirely to follow up on all [...] or having drug?drug interaction. Discharging you from [facility] does not mean that your medical care [...] constipation) (DME) pen needle, diabetic [Sure-Fine [place]] .Route lidocaine 5 % ointment 1 applic [...] % (Auto) 63.5, Lymph % (Auto) 24.9, Converse % (Auto) 8.3, Eos % (Auto) 2.9, Baso % (Auto) 0.4, Nucleat RBC Rel Count 0.0, Neut # (Auto) 4.6, Lymph # (Auto) 1.8, [place] # (Auto) 0.6, Eos # (Auto) 0.2, [...] Lang MD 04/30/24 1016 Signed By: 04/30/[address] [place], [place] 3411901-01-2025 Consult note Author Lit Clark [facility] HospitalNote Date/TimeJanuary 2024 11:07am [place] [address] Neurology Consult Note Signed Patient: Taye Gay MR#: [id number] : 1955 Acct:[id number] Age/Sex: 68 / F Adm Date: 4 Loc: Room: [address] [place] [address] Type: ADM IN Attending Dr: Priscilla Lang MD Copies to: DO Sandra Garrido DO Rafik Massouh, MD~ HPI Consult Date: 04/29/24 Engine Research Engineer: Lit Clark DO Reason for consult: [...] negative unless noted below or in HPI [facility] Medical History BMI 32.0-32.9,adult Abnormal thyroid [...] History Father Heart disease History of stroke [facility] Problem: Diagnosed with Stroke Cancer [...] (Stool Softener) 100 mg PO DAILY PRN unhxoivbpsoa97/14/24 [History Confirmed 04/28/24] multivitamin 1 tab PO DAILY 06/12/23 [History Confirmed 04/28/24] pen needle, diabetic [Sure-Fine [place]] 06/12/23 [History Confirmed 04/28/24] metformin 500 mg [...] Oz Bowling M.D.04/28/2024 9:46 PM Dictation Location: [place] [address] 04/28/24 19:44 IMPRESSION: No acute intracranial pathology. No evidence of focal stenosis, aneurysmal dilatation, dissection or occlusion. Impression dictated by: Oz Bowling M.D.04/28/2024 9:44 PM Dictation Location: [place] [address] Assessment/Plan (1) Atrial fibrillation: Qualifiers: Atrial fibrillation [...] may be metabolic in nature and not inbound sales representative necessarily of transient ischemia or [...] <Electronically signed by Lit Clark DO> 04/29/24 1783 [facility] Work Phone: 1([phone]) 832-712401-01-2025 Progress note Author Priscilla Lang [facility] Date/TimeJanuary 2024 11:02am [place] [address] Hospitalist Progress Note Signed Patient: Taye Gay MR#: [id number] : 1955 Acct:[id number] Age/Sex: 68 / F Adm Date: 4 Loc: Room: [address] [place] [address] Type: ADM IN Attending Dr: Priscilla Lang [...] of dementia, possible Alzheimer's dementia -continue home wjiclseyc62 mg twice daily and donepezil 20 mg [...] <Electronically signed by Priscilla Lang MD> 04/29/24 0480 [facility] Work Phone: 1([phone]) 896-514401-01-2025 [place] [address] Neurology Consult Note Signed Patient: Taye Gay MR#: [id number] : 1955 Acct:[id number] Age/Sex: 68 / F Adm Date: 4 Loc: Room: [address] [place] [address] Type: ADM IN Attending Dr: Priscilla Lang MD Copies to: DO Sandra Garrido DO Rafik Massouh, MD~ HPI Consult Date: 04/29/24 Engine Research Engineer: Lit Clark DO Reason for consult: [...] (Stool Softener) 100 mg PO DAILY PRN gzasjgzvrizc12/14/24 [History Confirmed 04/28/24] multivitamin 1 tab PO DAILY 06/12/23 [History Confirmed 04/28/24] pen needle, diabetic [Sure-Fine [place]] 06/12/23 [History Confirmed 04/28/24] metformin 500 mg [...] Oz Bowling M.D.04/28/2024 9:46 PM Dictation Location: [facility]- Head CT 04/28/24 19:44 IMPRESSION: No acute [...] may be metabolic in nature and not inbound sales representative necessarily of transient ischemia or [...] DO 5 0858 Signed By: 04/29/24 1107 [facility]01-01-[address] [address] Hospitalist Progress Note Signed Patient: Taye Gay MR#: [id number] : 1955 Acct:[id number] Age/Sex: 68 / F Adm Date: 4 Loc: 3T Room: 3J5985-8 Type: ADM IN Attending Dr: Priscilla Lang [...] of dementia, possible Alzheimer's dementia -continue home tyrmzmmzm70 mg twice daily and donepezil 20 mg [...] MD 04/29/24 1059 Signed By: 04/29/24 1102 [facility]01-01-2025 History and physical note Author Jori Hearn [facility] HospitalNote Date/TimeJanuary 2024 6:39[place] [address] Hospitalist H&P Signed Patient: Taye Gay MR#: [id number] : 1955 Acct:[id number] Age/Sex: 68 / F Adm Date: 4 Loc: 3T Room: [address] [place] [address] Type: ADM IN Attending Dr: Jori Hearn [...] this. Will monitortelemetry and address as needed [facility] Medical History BMI 32.0-32.9,adult Abnormal thyroid [...] (Stool Softener) 100 mg PO DAILY PRN rgomaswdmzry20/14/24 [History Confirmed 04/28/24] multivitamin 1 tab PO DAILY 06/12/23 [History Confirmed 04/28/24] pen needle, diabetic [Sure-Fine [place]] 06/12/23 [History Confirmed 04/28/24] metformin 500 mg [...] % (Auto) 24.6 % (.) 04/28/24 19:54 Converse % (Auto) 7.6 % (.) 04/28/24 19:54 Eos % (Auto) 2.7 % (.) 04/28/24 19:54 Baso % (Auto) 1.1 % (.) 04/28/24 19:54 Nucleat RBC Rel Count 0.2 /100 WBC (0-0.5) 04/28/24 19:54 Neut # (Auto) 6.5 x10E3/uL (1.8-7.7) 04/28/24 19:54 Lymph # (Auto) 2.5 x10E3/uL (1.00-4.8) 04/28/24 19:54 Converse # (Auto) 0.8 x10E3/uL (0.0-0.8) 04/28/24 19:54 [...] pH 5.5 (5.0-9.0) 04/28/24 22:02 Ur Specific [place] 1.038 (1.001-1.030) H 04/28/24 22:02 Urine Protein [...] signed by Jori Hearn DO> 04/29/24 39 [facility] Work Phone: 1(230) 353-385801-01-2025 [place] [address] Hospitalist H&P Signed Patient: Taye Gay MR#: [id number] : 1955 Acct:[id number] Age/Sex: 68 / F Adm Date: 4 Loc: Room: [address] [place] [address] Type: ADM IN Attending Dr: Jori Hearn [...] of dementia, possible Alzheimer's dementia -continue home mudmwbiln75 mg twice daily and donepezil 20 mg daily 12. Atrial fibrillation - continue Eliquis 5 mg twice daily for anticoagulationand carvedilol 12.5 mg twice daily. EKG in ER shows NSR 13. Hypoxia - no respiratory distress or cardiopulmonary complaints to accompany this. Will monitortelemetry and address as needed [facility] Medical History BMI 32.0-32.9,adult Abnormal thyroid [...] (Stool Softener) 100 mg PO DAILY PRN hrfhxohweewl87/14/24 [History Confirmed 04/28/24] multivitamin 1 tab PO DAILY 06/12/23 [History Confirmed 04/28/24] pen needle, diabetic [Sure-Fine [place]] 06/12/23 [History Confirmed 04/28/24] metformin 500 mg [...] % (Auto) 24.6 % (.) 04/28/24 19:54 Converse % (Auto) 7.6 % (.) 04/28/24 19:54 Eos % (Auto) 2.7 % (.) 04/28/24 19:54 Baso % (Auto) 1.1 % (.) 04/28/24 19:54 Nucleat RBC Rel Count 0.2 /100 WBC (0-0.5) 04/28/24 19:54 Neut # (Auto) 6.5 x10E3/uL (1.8-7.7) 04/28/24 19:54 Lymph # (Auto) 2.5 x10E3/uL (1.00-4.8) 04/28/24 19:54 Converse # (Auto) 0.8 x10E3/uL (0.0-0.8) 04/28/24 19:54 [...] pH 5.5 (5.0-9.0) 04/28/24 22:02 Ur Specific [place] 1.038 (1.001-1.030) H 04/28/24 22:02 Urine Protein [...] DO 04/28/24 59 Signed By: 04/29/24 0639 [facility]12-31-2024 Radiology Diagnostic study note [facility] Main [place] [address] [place] [address] CT Scan Report Signed Patient: Taye Gay MR#: [id number] : 1955 Acct:[id number] Age/Sex: 68 / F ADM Date: 4 Loc: ER Room: Type: [facility] ER Attending Dr: Copies to: Wesley Villafuerte PA-C~ Ordering Provider: Wesley Villafuerte PA-C Date of Service: 04/28/24 CT/CT angio head: weakness ([id number]) CT/CT angio neck: weakness ([id number]) CT/CT head/brain wo con: weakness CT head/brain [...] Oz Bowling M.D.04/28/2024 9:44 PM Dictation Location: [place] [address] Transcribed By: AMY 04/28/242143 Dictated By: Oz Bowling II, MD 04/28/242129 Signed By: 04/28/242143 [facility] Work Phone: 1(380) 696-500112-31-2024 Evaluation note* Diagnosis Onset Date Resolution Status [...] (transient ischemic attack)acute May 07, 2024 1:02pm [facility] Work Phone: 1([phone]) 835-723712-31-2024 Evaluation note* Diagnosis Onset Date Resolution Status [...] 10:54amPAD (peripheral artery disease)acuteMarch 2024 10:54am [facility] Work Phone: 1(482) 390-812912-17-2024 Evaluation note* Diagnosis Onset Date Resolution Status Admit Date High granulocyte count acuteDece2023 9:30amSecondary polycythemiaacutece2023 9:30amBMI 32.0-32.9,adultacuteDecember 2023 11:14amChronic kidney disease (CKD) stage G2/A2, mildly decreased glomerular filtracuteDecember 2023 11:14amDietary counseling and surveillanceacuteApril 28, 2024 11:14am HyperlipidemiaacuteDecember 2023 11:14amHypertensionacuteDecember 2023 11:14amPeripheral neuropathyacutecember 2023 11:14amType 2 diabetes mellitusacutecember 2023 11:14amVitamin B 12 deficiencyacuteDecember 2023 11:14amTIA (transient ischemic attack)acutecemb2023 10:38pm [facility] Work Phone: 1(387) 156-843512-17-2024 Evaluation note* Diagnosis Onset Date Resolution Status [...] 28, 2024 10:38pmTIA (transient ischemic attack)acutece2023 10:38pm [facility] Work Phone: 1(735) 326-856212-17-2024 Evaluation note* Diagnosis Onset Date Resolution Status [...] attack)acutecember 2023 10:38pmCigarette nicotine dependenceacuteJanuary 2024 1:02pm [facility] Work Phone: 1(716) 430-425612-17-2024 Evaluation note* Diagnosis Onset Date Resolution Status [...] 1:02pmTIA (transient ischemic attack)acuteJanuary 2024 1:02pm [facility] Work Phone: 1(798) 104-403112-11-2024 History of Present illness Narrative* Karl Fritz, BARRIE - 04/08/2024 4:00 PM EST Images from the original note were not included. HPI: Patient presents today complaining of an ulcer on the lateral 5th right foot. Patient has pain withwalking and standing due to this lesion. Patient has tried [place] [facility] for treatment, x-ray, antibiotic, (not taking [...] RTC: 2 weeks. documented in this encounterSaint John's Breech [facility] Medical CenterSqqgszsddv18-99-9267 History of Present illness Narrative* Oz Kincaid [...] in about 6 months (around 10/06/2024), or NAPRAPATH. History of Present Illness, Associated Treatments and [...] felt not to be needed as yet. +OP - has seeen by Dr. Lenz, From prev - [[[ Lost to follow-up since 2019. Worsening gait, more unsteady, muscle atrophy in LEs.Burning paraesthesiae B feet, about equal bilat. ]]] Onset Semeiology Paraesthesiae in feet and fingertips 08/06. Restlessness well controlled. Imaging MR L-s (11/2023, [facility]) - HNP T12-L1 mild; canal sten L2-3 mod; errol sten L2-3 modB L4-5-S1 modB US LE (12/2016, [place]) - atherosclerosis, nl PVR. Testing [facility] (11/2023) - acute L S1 (nEMG) + PN pattern signif worse . . . . (03/2017, [facility]) - PN pattern Labs - U15=850/15/116/>22.3, was 359/16.7H/328/>22.3 ... A1c=8.4, was 10.4(!) ,,, [...] off nortrip. Onset Semeiology [facility] - not available via [place] - [...] ___, orig: ___ Motor - ___, unchanged: Superintendent Terminal 4B ... APB 4R 4+L, orig: ___ [...] smear of cervix hpv positive COVID-19 Diabetes ([facility]/HCC) Fibromyalgia High cholesterol ([facility]) History of medical problems ulcer HTN (hypertension) ([facility]) Neuropathy Rheumatoid arthritis ([facility]/HCC) Scarlet fever Stomach ulcer Tonsillitis Past Surgical History: Procedure Laterality Date BIOPSY 04/2020 vulvar CARPAL TUNNEL RELEASE Right 2018 COLPOSCOPY 01/21/2017 COLPOSCOPY 09/2018 COLPOSCOPY 10/2019 COLPOSCOPY 09/2021 ESOPHAGEAL DILATION HYSTERECTOMY PARTIAL HYSTERECTOMY [place] VULVECTOMY SIMPLE PARTIAL 12/2018 TONSILLECTOMY VULVECTOMY 12/2017 [...] in the morning. Continuous Blood Gluc Sensor ([employer] SystemsStyle [place] 14 Day Sensor) [facility] [...] if tolerated 60 tablet 3 Droplet [place] 32G X 4 MM [facility] [...] ? [address] ? [place], [place] [address] ? ? fax Neurology ? Clinical Neurophysiology ? Epilepsy ? Sleep Disorders ? Clinical Informatics documented in this encounterSaint John's Breech Regional Medical CenterRpslmcwhlf87-84-6318 History of Present illness Narrative* Roland Faust [...] exam, discussion and plan. documented in this [facility] Work Phone: 1(194) 410-775311-27-2024 Instructions* Patient Instructions* Dave Meneses MA - [...] time of your visit. documented in this [facility] Work Phone: 1(649) 237-434310-29-2024 History of Present illness Narrative* Oz Kincaid MD - 02/25/2024 2:43 PM EDTAssociated Problem(s): PO positive Get Dr. Gonzalez's note (2nd request). * Oz Kincaid MD - 02/25/2024 2:15 PM EDTAssociated Problem(s): Cognitive decline Add memantine 10 -> bid. Then add donepezil 10, titrate. Handout. Get MR images transferred to [facility] PACS for my review. * Oz [...] titrate. Handout. Get MR images transferred to [facility] PACS for my review. Neurogenic pain [...] Restlessness well controlled. Imaging MR L-s (11/2023, [facility]) - HNP T12-L1 mild; canal sten L2-3 mod; errol sten L2-3 modB L4-5-S1 modB US LE (12/2016, [facility]) - atherosclerosis, nl PVR. Testing [facility] (11/2023) - acute L S1 (nEMG) + PN pattern signif worse . . . . (03/2017, [facility]) - PN pattern Labs - D47=724/15/116/>22.3, was 359/16.7H/328/>22.3 ... A1c=8.4, was 10.4(!) ,,, [...] nortrip. Onset Semeiology Imaging MR brain (10/2023, [facility]) - not available via [place] - atrophy [...] ___, orig: ___ Motor - ___, unchanged: [place] 4B ... APB 4R 4+L, orig: ___ [...] COLPOSCOPY 09/2021 ESOPHAGEAL DILATION HYSTERECTOMY PARTIAL HYSTERECTOMY MN VULVECTOMY SIMPLE PARTIAL 12/2018 TONSILLECTOMY VULVECTOMY 12/2017 [...] Gluc Sensor (FreeStyle Brent 14 Day Sensor) [facility] apply 1 SENSOR as directed every 14 days use with DEVICE to MONIT... (REFER TO PRESCRIPTION NOTES). cyanocobalamin (Vitamin B-12) 2500 MCG tablet cyclobenzaprine (Flexeril) 10 MG tablet 1-2 tabs QHS 60 tablet 3 Docusate Sodium (DSS) 100 MG capsule Take 100 mg by mouth in the morning and 100 mg in the evening. Droplet [place] 32G X 4 MM mis use 1 [...] ? [address] ? [place], [place] [address] ? ? fax Neurology ? Clinical Neurophysiology ? Epilepsy ? Sleep Disorders ? Clinical Informatics documented in this encounterSaint John's Breech Regional Medical CenterBnxgokzmrd84-14-0941 History of Present illness Narrative* Karl Fritz DPM - 02/10/2024 2:00 PM EDT Images from the original note were not included. HPI: Patient presents today complaining of an ulcer on the plantar 1st met right foot. They have noticedthis for the past month (10/2023). Patient has pain with walking and standing due to this lesion. Patient has tried [place] [facility] for treatment, x-ray, antibiotic, (not taking [...] RTC: 2 weeks. documented in this encounterSaint John's Breech Regional Medical CenterTepjncsscq37-07-7255 History of Present illness Narrative* Karl Fritz DPM - 01/27/2024 10:30 AM EDT Images from the original note were not included. HPI: Patient presents today complaining of an ulcer on the plantar 1st met right foot. They have noticedthis for the past month (10/2023). Patient has pain with walking and standing due to this lesion. Patient has tried [facility] for treatment, x-ray, antibiotic, (not [...] week for recheck. documented in this encounterSaint John's Breech Regional Medical CenterWxovohpgeg14-67-7487 History of Present illness Narrative* Karl Fritz [...] week for recheck. documented in this encounterSaint John's Breech [facility] Medical CenterRowrbxatpe10-26-8297 Telephone encounter Note* Telephone Encounter - Cali Duque - 01/10/2024 2:34 PM EDT Called and spoke with Corinna twice both times got disconnected. On purpose or by accident not sure, second time Corinna was given Dr Kincaid's answer. Not sure if she got full and complete answer, but she got enough of it. [facility] CenterXosyfruapm50-86-4202 Miscellaneous Notes* Telephone Encounter - Cali Duque [...] x several days, then 300 bid Corinna [phone] documented in this encounterSaint John's Breech Regional Medical CenterCfdpsxcfis78-71-8641 Telephone encounter Note* Telephone Encounter - Cali Duque - 01/08/2024 12:37 PM EDT Daughter (Corinna Ayala) called, She was talking with Taye's Nurse, They would like to know if Gabapentin would be a better option for Taye than the PGB? You just inc her PGB from 1 cap bid to 150/300 x several days, then 300 bid Corinna [phone] [facility] CenterWwjjjdkzmr92-32-5318 History of Present illness Narrative* Oz Kincaid [...] Restlessness well controlled. Imaging MR L-s (11/2023, [facility]) - HNP T12-L1 mild; canal sten L2-3 mod; errol sten L2-3 modB L4-5-S1 modB US LE (12/2016, [place]) - atherosclerosis, nl PVR. Testing [facility] (11/2023) - acute L S1 (nEMG) + PN pattern signif worse . . . . (03/2017, [facility]) - PN pattern Labs - L47=846/15/116/>22.3, was 359/16.7H/328/>22.3 ... A1c=8.4, was 10.4(!) ,,, [...] ___, orig: ___ Motor - ___, unchanged: [place] 4B ... APB 4R 4+L, orig: ___ [...] smear of cervix hpv positive COVID-19 Diabetes ([facility]/HCC) Fibromyalgia High cholesterol ([facility]) History of medical problems ulcer HTN (hypertension) ([facility]) Neuropathy Rheumatoid arthritis ([facility]) Scarlet fever Stomach ulcer Tonsillitis Past Surgical History: Procedure Laterality Date BIOPSY 04/2020 vulvar CARPAL TUNNEL RELEASE Right 2018 COLPOSCOPY 01/21/2017 COLPOSCOPY 09/2018 COLPOSCOPY 10/2019 COLPOSCOPY 09/2021 ESOPHAGEAL DILATION HYSTERECTOMY PARTIAL HYSTERECTOMY MN VULVECTOMY SIMPLE PARTIAL 12/2018 TONSILLECTOMY VULVECTOMY 12/2017 [...] Gluc Sensor (FreeStyle [place] 14 Day Sensor) [facility] apply 1 SENSOR as directed every 14 days use with DEVICE to MONIT... (REFER TO PRESCRIPTION NOTES). cyanocobalamin (Vitamin B-12) 2500 MCG tablet Docusate Sodium (DSS) 100 MG capsule Take 100 mg by mouth in the morning and 100 mg in the evening. Droplet [place] 32G X 4 MM [facility] [...] Oz Kincaid M.D. documented in this encounterSaint John's Breech Regional Medical CenterSjftsrqflx33-12-1190 History of Present illness Narrative* Karl Fritz [...] due to this lesion. Patient has tried [facility] for treatment, x-ray, antibiotic, (not [...] RTC: 2 weeks. documented in this encounterSaint John's Breech Regional Medical CenterAptamivqxd59-43-7269 History of Present illness Narrative* Oz Kincaid [...] Oz Kincaid M.D. documented in this encounterSaint John's Breech Regional Medical CenterWodbrmbwlm46-53-4794 History of Present illness Narrative* Roland Faust [...] this encounterUniversity [facility] Work Phone: 1(574) 336-665408-19-2024 Instructions* Patient Instructions* Sofie Dean LPN - [...] to Increase physical activity. [facility] Work Phone: 1(912) 873-966907-17-2024 History of Present illness Narrative* Jonas Ch [...] exam, discussion and plan. documented in this encounterNewark [facility] Work Phone: 1(871) 233-750007-17-2024 Instructions* Patient Instructions* Dakota Barraza RN - [...] to Increase physical activity documented in [facility] encounterNewark [facility] Work Phone: 1(471) 726-786507-15-2024 Progress note Author Chaka Frye [facility] November 11, 2023 4:15pmNote Date/TimeJuly 2023 4:[place] [address] Hospitalist Progress Note Signed Patient: Taye Gay MR#: [id number] : 1955 Acct:[id number] Age/Sex: 67 / F Adm Date: 4 Loc: 4N Room: 1W6468-1 Type: ADM IN Attending Dr: Chaka Frye [...] <Electronically signed by Chaka Frye MD> 11/11/23 1619 [facility] Work Phone: 1(759) 390-429007-15-2024 Consult note Author Lit Clark [facility] November 11, 2023 3:11pmNote Date/TimeJuly 2023 10:43[place] [id number] Neurology Consult Note Signed Patient: Taye Gay MR#: [id number] : 1955 Acct:[id number] Age/Sex: 67 / F Adm Date: 4 Loc: 4N Room: 0H3427-7 Type: ADM IN Attending Dr: Chaka Frye MD Copies to: DO Geraldo Garrido MD, RES MD Sandra Mar, ~ HPI Consult Date: 11/11/23 Engine Research Engineer: Geraldo Vo MD, RES Reason for consult: Progressive generalized weakness Consult Narrative HPI: Taye Gay is a 67 y.o. female with a PMH of esophageal stricture, cigarette smoker, GERD, HTN, type 2 diabetes mellitus, HLD, CKD stage G2/A2, peripheral neuropathy and vit B12 deficiency who presented to [facility] on 11/10/23 for concerns regarding generalized weakness. Neurology was consulted for evaluation of generalized weakness. Additional HPI is noted in Assessment and Plan. [facility] Medical History History of esophageal stricture [...] disease [facility]: Diagnosed with Stroke Cancer throat heart [...] Confirmed 11/09/23] pen needle, diabetic [Sure-Fine [place]] 06/12/23 [History Confirmed 11/09/23] omeprazole 20 mg [...] Oz Bowling M.D.11/10/2023 1:15 PM Dictation Location: [place] [address] Therapy Recommendations Therapy Recommendations: OT Recommendations OT Recommended Discharge Custodial Facility Location OT Recommended Services at Physical Therapy,Occupational Therapy Discharge PT Recommendations PT Recommended Discharge Custodial Facility Location PT Recommended Services at Physical Therapy,Occupational Therapy Discharge Assessment/Plan (1) Ambulatory dysfunction: (2) Weakness: (3) Hypothyroid: Qualifiers: Hypothyroidism type: unspecified Qualified Code(s): E03.9 - Hypothyroidism, unspecified (4) Hypomagnesemia: (5) Type 2 diabetes mellitus with hyperglycemia: Qualifiers: Diabetes mellitus fci insulin use: unspecified fci insulin use status Qualified Code(s): E11.65 - Type 2 diabetes mellitus with hyperglycemia (6) Vitamin B 12 deficiency: Plan CONSULT REASON: Generalized weakness HPI: Taye Gay is a 67 y.o. female with a PMH of esophageal stricture, cigarette smoker, GERD, HTN, type 2 diabetes mellitus, HLD, CKD stage G2/A2, peripheral neuropathy and vit B12 deficiency who presented to [facility] on 11/10/23 for concerns regarding generalized [...] signed by MD GAGE Vo> 11/11/23 1043 [facility] Work Phone: 1(245) 419-759707-14-2024 Progress note Author Kirt Renae [facility] [facility] November 10, 2023 12:24pmNote Date/TimeJuly 2023 12:00pm[place] [address] Hospitalist Progress Note Signed Patient: Taye Gay MR#: [id number] : 1955 Acct:[id number] Age/Sex: 67 / F Adm Date: 4 Loc: 4N Room: [address] [place] [address] Type: ADM IN Attending Dr: Kirt Renae [...] ESR and CRP -Obtain anti Sushma, Anti PARAPROFESSIONAL AIDE, anti dsDNA -Obtain CT head without contrast [...] signed by Kirt Renae MD> 11/10/23 1224 [facility] Work Phone: [phone] 294-202807-14-2024 History and physical note Author Jluis Campos [facility] November 10, 2023 6:20amNote Date/TimeJuly 2023 6:11am[place] [address] Hospitalist H&P Signed Patient: Taye Gay MR#: [id number] : 1955 Acct:[id number] Age/Sex: 67 / F Adm Date: 4 Loc: Room: [address] [place] [address] Type: ADM IN Attending Dr: Jluis Campos [...] negative unless noted below or in HPI [facility] Medical History History of esophageal stricture [...] disease [facility]: Diagnosed with Stroke Cancer throat heart [...] Confirmed 11/09/23] pen needle, diabetic [Sure-Fine [place]] 06/12/23 [History Confirmed 11/09/23] omeprazole 20 mg [...] weaknesses were noted, patient unable to ambulate. Jqmf-bb-rttj test was normal. No tremors or ataxia with jvhvvu-yr-pzfx movements. Neuro: AOx3, CN II-VII intact. Moves [...] % (Auto) 26.0 % (.) 11/10/23 03:41 Converse % (Auto) 8.2 % (.) 11/10/23 03:41 Eos % (Auto) 3.7 % (.) 11/10/23 03:41 Baso % (Auto) 0.9 % (.) 11/10/23 03:41 Nucleat RBC Rel Count 0.1 /100 WBC (0-0.5) 11/10/23 03:41 Neut # (Auto) 5.2 x10E3/uL (1.8-7.7) 11/10/23 03:41 Lymph # (Auto) 2.2 x10E3/uL (1.00-4.8) 11/10/23 03:41 Converse # (Auto) 0.7 x10E3/uL (0.0-0.8) 11/10/23 03:41 [...] pH 6.0 (5.0-9.0) 11/10/23 05:02 Ur Specific [place] 1.007 (1.001-1.030) 11/10/23 05:02 Urine Protein Negative [...] <Electronically signed by Jluis Campos DO> 11/10/23619 [facility] Work Phone: [phone] [facility] of Present illness Narrative* Jonas [...] to make adjustments and amiodarone before my [facility]. Vitals: 10/07/23 0948 BP: 114/90 BP Location: [...] mellitus with other specified complication, unspecified whether long term care social worker insulin use (Multi) Managed by other providers [...] exam, discussion and plan. [facility] Phone: [phone]) [phone] Instructions* Patient Instructions* Cary Mcdonnell RN - [...] Fall Prevention Education Given [facility] Work Phone: 1(123) 900-449705-18-2024 Progress note Author Faraz Gilliam [facility] September 14, 2023 1:34pmNote Date/TimeMay 2023 1:26pm[place] [address] Cardiology Progress Note Signed Patient: Taye Gay MR#: [id number] : 1955 Acct:[id number] Age/Sex: 67 / F Adm Date: 4 Loc: 3T Room: [address] [place] [address] Type: ADM IN Attending Dr: Elva Florian [...] by Faraz Gilliam MD> 09/14/23 1334 [facility] Work Phone: [phone] Progress note Author Elva Florian [facility] September 14, 2023 2:03amNote Date/TimeMay 2023 6:15pm[place] [address] Hospitalist Progress Note Signed Patient: Taye Gay MR#: [id number] : 1955 Acct:[id number] Age/Sex: 67 / F Adm Date: 4 Loc: Room: [address] [place] [address] Type: ADM IN Attending Dr: Elva Florian [...] Tablet.Dr PO 09/12/24 08:59 81 mg DAILY [facility] Administration Atorvastatin Calcium 10 mg 09/13/23 09:00 09/13/23 08:38 Atorvastatin 10 Mg Tablet PO 09/12/24 08:59 10 mg DAILY [facility] Administration Dextrose 0 gm 09/12/23 20:04 Dextrose 50% In Water 25 Gm/50 Ml Syringe IV-PUSH 09/11/24 20:03 PRN PRN Hypoglycemia Diltiazem HCl 30 mg 09/12/23 22:00 09/13/23 13:53 Diltiazem 30 Mg Tablet PO 09/11/24 21:59 30 mg QID [facility] Administration Docusate Sodium 100 mg 09/13/23 09:00 09/13/23 08:37 Docusate 100 Mg Capsule PO 09/12/24 08:59 100 mg DAILY [facility] Administration Empagliflozin 25 mg 09/13/23 09:00 09/13/23 08:38 Empagliflozin 25 Mg Tablet PO 09/12/24 08:59 25 mg DAILY [facility] Administration Folic Acid 1 mg 09/13/23 09:00 09/13/23 08:38 Folic Acid 1 Mg Tablet PO 09/12/24 08:59 1 mg DAILY [facility] Administration Glucose 0 gm 09/12/23 20:04 Dextrose 40% Gel 15 Gm Tube PO 09/11/24 20:03 PRN PRN Hypoglycemia Insulin Aspart 0 units 09/12/23 22:00 09/13/23 16:24 Insulin Aspart 300 Units/3 Ml Insuln.Pen SUBCUT 09/11/24 21:59 Not Given TID.WM.HS [facility] Protocol Insulin Glargine 20 units 09/13/23 09:00 09/13/23 08:40 Insulin Glargine 300 Units/3 Ml Insuln.Pen SUBCUT 09/12/24 08:59 20 units DAILY [facility] Administration Metoprolol Succinate 50 mg 09/14/23 09:00 Metoprolol Succinate 50 Mg Tab.Er.24h PO 09/13/24 08:59 DAILY [facility] Metoprolol Tartrate 5 mg 09/12/23 20:04 [...] signed by Elva Florian MD> 09/14/23 0203 [facility] Work Phone: [phone] Consult note Author Jonas Ch [facility] September 13, 2023 12:25pmNote Date/TimeMay 2023 12:26pm[place] [address] Cardiology Consult Note Signed Patient: Taye Gay MR#: [id number] : 1955 Acct:[id number] Age/Sex: 67 / F Adm Date: 4 Loc: 3T Room: [address] [place] [address] Type: ADM INOo Attending Dr: Elva Florian [...] and no additional complaints, except as documented [facility] Medical History History of esophageal stricture [...] Confirmed 09/12/23] pen needle, diabetic [Sure-Fine [place]] 06/12/23 [History Confirmed 09/12/23] nortriptyline 50 mg [...] x10E3/uL Lymph # (Auto) 2.0 (1.00-4.8) x10E3/uL [place] # (Auto) 0.6 (0.0-0.8) x10E3/uL Eos # [...] ml @ 999 mls/hr IV .Q1H1M ONE Rx#:[id number] Oral 50 / 50 Output: Urine 600 [...] signed by MD Jonas Ch> 09/13/23 1225 [facility] Work Phone: 1([phone] History and physical note Author Elva Florian [facility] September 13, 2023 2:09amNote Date/TimeMay 2023 7:53pm[place] [address] Hospitalist H&P Signed Patient: Taye Gay MR#: [id number] : 1955 Acct:[id number] Age/Sex: 67 / F Adm Date: 4 Loc: Room: [address] [place] [address] Type: ADM INOo Attending Dr: Elva Florian [...] care Discussed with:?the medical team, the patient [facility] Medical History History of esophageal stricture [...] Confirmed 09/12/23] pen needle, diabetic [Sure-Fine [place]] 06/12/23 [History Confirmed 09/12/23] nortriptyline 50 mg [...] % (Auto) 20.2 % (.) 09/12/23 14:51 [place] % (Auto) 5.9 % (.) 09/12/23 14:51 Eos % (Auto) 1.7 % (.) 09/12/23 14:51 Baso % (Auto) 0.9 % (.) 09/12/23 14:51 Nucleat RBC Rel Count 0.2 /100 WBC (0-0.5) 09/12/23 14:51 Neut # (Auto) 7.0 x10E3/uL (1.8-7.7) 09/12/23 14:51 Lymph # (Auto) 2.0 x10E3/uL (1.00-4.8) 09/12/23 14:51 [place] # (Auto) 0.6 x10E3/uL (0.0-0.8) 09/12/23 14:51 [...] signed by Elva Florian MD> 09/13/23208 [facility] Work Phone: 1(937) 383-212902-12-2024 Evaluation note* Encounter Date Diagnosis Assessment Notes Treatment Notes Treatment Clinical Notes May, Type 2 diabetes mellitus with hy perglycemia (ICD-10 - E11.65) [facility] [employer] Other 01-23-2024 Evaluation note* Encounter Date Diagnosis Assessment Notes Treatment Notes Treatment Clinical Notes Apr, Primary insomnia (ICD-10 - F51.0 1) [facility] Other 12-11-2023 Evaluation note* Encounter Date Diagnosis Assessment Notes Treatment Notes Treatment Clinical Notes Mar, Type 2 diabetes mellitus with hy perglycemia (ICD-10 - E11.65) [facility] [employer] Other 11-06-2023 Evaluation note* Encounter Date Diagnosis [...] K21.9)Discussed can start famotidine PRN breakthrough GERD [facility] Other 10-02-2023 Evaluation note* Encounter Date Diagnosis Assessment Notes Treatment Notes Treatment Clinical Notes Jan, Primary insomnia (ICD-10 - F51.0 1) [facility] Other 09-11-2023 Evaluation note* Encounter Date Diagnosis Assessment Notes Treatment Notes Treatment Clinical Notes Dec, Type 2 diabetes mellitus with hy perglycemia (ICD-10 - E11.65) Managing type 2 diabetes material was published 1. Controlled, Type 2 diabetes with A1c 6.3% 2. Blood glucose levels improved. According to [facility] cgm download 12/25/2022- 01/07/2023: Avg glucose 156. [...] to make it easier material was published [facility] Other 09-06-2023 Evaluation note* Encounter Date Diagnosis Assessment Notes Treatment Notes Treatment Clinical Notes Dec, Esophageal stricture (ICD-10 - K 22.2) Dec,ysphagia (ICD-10 - R13.10)Patient has a narrow esophagus but is improving Patient is to continue omeprazole daily [facility] Other 09-01-2023 Evaluation note* Encounter Date Diagnosis Assessment Notes Treatment Notes Treatment Clinical Notes Dec, Primary insomnia (ICD-10 - F51.0 1) [facility] Other 08-22-2023 Evaluation note* Encounter Date Diagnosis Assessment Notes Treatment Notes Treatment Clinical Notes Nov, Primary insomnia (ICD-10 - F51.0 1) [facility] Other 08-02-2023 Evaluation note* Encounter Date Diagnosis [...] reviewed and amended by provider signed below. [facility] Other 07-11-2023 Evaluation note* Encounter Date Diagnosis Assessment Notes Treatment Notes Treatment Clinical Notes Oct, Primary insomnia (ICD-10 - F51.0 1) [facility] Other 06-01-2023 Evaluation note* Encounter Date Diagnosis Assessment Notes Treatment Notes Treatment Clinical Notes Sep, Type 2 diabetes mellitus with hy perglycemia (ICD-10 - E11.65) Managing type 2 diabetes material was published 1. Controlled, Type 2 diabetes with A1c 6.6% 2. Blood glucose levels improved. According to [facility] cgm download 09/13/2022- 09/26/2022: Avg glucose 151. [...] to make it easier material was published [facility] Other 05-15-2023 Evaluation note* Encounter Date Diagnosis Assessment Notes Treatment Notes Treatment Clinical Notes August, Primary hypertension (ICD-10 - I 10) August,Type 2 diabetes mellitus with hyperglycemia (ICD-10 - E11.65) [facility] Other 04-13-2023 Evaluation note* Encounter Date Diagnosis [...] F17.200)Due for LDCT for lung CA screening [facility] Other 04-10-2023 Evaluation note* Encounter Date Diagnosis Assessment Notes Treatment Notes Treatment Clinical Notes Jul, Primary insomnia (ICD-10 - F51.0 1) [facility] Other 03-08-2023 Evaluation note* Encounter Date Diagnosis Assessment Notes Treatment Notes Treatment Clinical Notes Jun, Primary insomnia (ICD-10 - F51.0 1) [facility] Other 02-21-2023 Evaluation note* Encounter Date Diagnosis Assessment Notes Treatment Notes Treatment Clinical Notes May, Type 2 diabetes mellitus with hy perglycemia (ICD-10 - E11.65) [facility] Other 02-20-2023 Evaluation note* Encounter Date Diagnosis Assessment Notes Treatment Notes Treatment Clinical Notes May, Type 2 diabetes mellitus with hy perglycemia (ICD-10 - E11.65) Managing type 2 diabetes material was published 1. Uncontrolled, Type 2 diabetes with A1c 7.1% 2. Blood glucose levels improved. According to [facility] cgm download 06/04/2022- 06/17/2022: Avg glucose 180. [...] - Z68.35)Setting weight-loss goals material was published [facility] Other 02-06-2023 Evaluation note* Encounter Date Diagnosis Assessment Notes Treatment Notes Treatment Clinical Notes May, Primary insomnia (ICD-10 - F51.0 1) [facility] Other 01-26-2023 Evaluation note* Encounter Date Diagnosis Assessment Notes Treatment Notes Treatment Clinical Notes Apr, Hyperlipidemia (ICD-10 - E78.5) [facility] Other 12-06-2022 Evaluation note* Encounter Date Diagnosis Assessment Notes Treatment Notes Treatment Clinical Notes Mar, Type 2 diabetes mellitus with hy perglycemia (ICD-10 - E11.65) [facility] Other 10-19-2022 Evaluation note* Encounter Date Diagnosis Assessment Notes Treatment Notes Treatment Clinical Notes Jan, Primary hypertension (ICD-10 - I 10) [facility] Other 09-13-2022 Evaluation note* Encounter Date Diagnosis Assessment Notes Treatment Notes Treatment Clinical Notes Dec, Type 2 diabetes mellitus with hy perglycemia (ICD-10 - E11.65) Managing type 2 diabetes material was published 1. Uncontrolled, Type 2 diabetes with A1c 7.7% 2. Blood glucose levels above target. According to [facility] cgm download 12/26/2021- 01/08/2022: Avg glucose 211. [...] given. Sent order for toujeo to [facility]. Dec,ietary counseling and surveillance (ICD-10 - Z71.3)Eat [...] last visit, continue with weight loss efforts [facility] Other 08-17-2022 Progress note Author Walter Montgomery [facility] December 13, 2021 8:52amNote Date/TimeAugust 2021 8:52[place] [id number] General Surgery Progress Note Signed Patient: Taye Gay MR#: [id number] : 1955 Acct:[id number] Age/Sex: 66 / F Adm Date: 2 Loc: Room: [address] [place] [address] Type: ADM INOo Attending Dr: Wilmer Vance [...] insulin lispro 100 unit/mL subcutaneous pen ([facility] SoloStar U-100 Insulin lispro) 1 sliding scaledose [...] Tablet.) 81 mg PO DAILY [facility] Stop: 12/10/22 08:59 Last Admin: 12/12/21 10:33 Dose: Not Given Atorvastatin Calcium (Atorvastatin 10 Mg Tablet) 10 mg PO DAILY [facility] Stop: 12/10/22 08:59 Last Admin: 12/12/21 10:33 Dose: Not Given Cyanocobalamin (Cyanocobalamin 1,000 Mcg Tablet) 1,000 mcg PO DAILY [facility] Stop: 12/13/22 08:59 Dextrose (Dextrose 50% In Water 25 Gm/50 Ml Syringe) 0 gm IV-PUSH PRN PRN PRN Reason: Hypoglycemia Stop: 12/09/22 11:18 Docusate Sodium (Docusate 100 Mg Capsule) 100 mg PO TID [facility] Stop: 12/12/22 21:59 Last Admin: 12/12/21 22:26 Dose: 100 mg Enoxaparin Sodium (Enoxaparin 40 Mg/0.4 Ml Syringe) 40 mg SUBCUT DAILY@10 [facility] Stop: 12/10/22 09:59 Last Admin: 12/12/21 [...] @ 100 mls/hr IV Q24H [facility] Last Admin: 12/12/21 11:57 Dose: 100 mls/hr Sodium Chloride (0.9% Sodium Chloride 1,000 Ml) 1,000 mls @ 100 mls/hr IV .[id number] Stop: 12/12/22 00:00 Last Infusion: 12/13/21 03:35 Dose: Infused Lactated Ringer's (Lactated Ringers) 1,000 mls @ 20 mls/hr IV .Q24H [facility] Stop: 12/13/21 11:13 Last Infusion: 12/13/21 03:31 Dose: Infused Insulin Aspart (Insulin Aspart 300 Units/3 Ml Insuln.Pen) 0 units SUBCUT TID.[facility]; Protocol Stop: 12/09/22 11:59 Last Admin: 12/13/21 08:07 Dose: 4 units Nortriptyline HCl (Nortriptyline 25 Mg Capsule) 50 mg PO BID [facility] Stop: 12/09/22 20:59 Last Admin: 12/12/21 22:27 Dose: 50 mg Omeprazole (Omeprazole 20 Mg Capsule.Dr) 20 mg PO DAILY [facility] Stop: 12/10/22 08:59 Last Admin: 12/12/21 10:33 Dose: Not Given Ondansetron HCl (Ondansetron 4 Mg/2 Ml Vial) 4 mg IV-PUSH Q6H PRN PRN Reason: Nausea And Vomiting Stop: 12/12/22 18:19 Pioglitazone HCl (Pioglitazone 15 Mg Tablet) 15 mg PO DAILY [facility] Stop: 12/10/22 08:59 Last Admin: 12/12/21 [...] Capsule) 30 mg PO QHS [facility] Stop: 12/09/22 21:59 Last Admin: 12/12/21 [...] Sodium 137, Potassium 4.4, Chloride 105, Carbon Qrjtujt62.6, BUN 12, Creatinine 0.75, Est GFR ( Amer) > 60, Est GFR (Non-Af Amer) > 60, TotalBilirubin 0.7, Direct Bilirubin 0.2, Indirect Bilirubin 0.5 12/13/21 05:58: Corrected WBC 9.4, Uncorrected WBC Count 9.4, RBC 4.41, Hgb 14.2, Hct 41.9, MCV 95.1, MCH 32.2, MCHC 33.9, RDW 12.9, Plt Count 178, MPV 9.3,Neut % (Auto) 90.4, Lymph % (Auto) 7.7, [place] % (Auto) 1.8, Eos % (Auto) 0.0, Baso % (Auto) 0.1, Neut # (Auto) 8.5 H, Lymph # (Auto) 0.7 L, [place]# (Auto) 0.2, Eos # (Auto) 0.0, Baso # (Auto) 0.0, Nucleated RBC % (auto) 0.0 12/12/21 20:42: POC Glucose 214 12/12/21 18:25: POC Glucose 178 12/12/21 15:26: POC Glucose 133 12/12/21 11:48: POC Glucose 167 12/12/21 07:47: PHA Creatinine Clear 83.77, Sodium 136, Potassium 3.8, Chloride 103, Carbon Lkyxory46.5, BUN 5 L, Creatinine 0.76, Est GFR [...] % (Auto) 72.7, Lymph % (Auto) 16.1, [place] % (Auto) 8.8, Eos % (Auto) 2.1, Baso % (Auto) 0.3, Neut # (Auto) 5.3, Lymph # (Auto) 1.2, [place] # (Auto) 0.6, Eos# (Auto) 0.2, Baso [...] Neut % (Auto) 66.8, Lymph % (Auto) 21.0,[place] % (Auto) 9.2, Eos % (Auto) 2.6, Baso % (Auto) 0.4, Neut # (Auto) 4.1, Lymph # (Auto) 1.3, [place]# (Auto) 0.6, Eos # (Auto) 0.2, Baso [...] DO Walter Montgomery> 12/13/21 0852 [facility] Work Phone: [phone] Progress note Author Teresa Tae [facility] December 12, 2021 8:43pmNote Date/TimeAugust 2021 2:49pmShane Ville [id number] Urology Progress Note Signed Patient: Taye Gay MR#: [id number] : 1955 Acct:[id number] Age/Sex: 66 / F Adm Date: 2 Loc: Room: [address] [place] [address] Type: ADM INOo Attending Dr: Arleen Stephen [...] Sodium 136, Potassium 3.8, Chloride 103, Carbon Wyclzbs97.5, BUN 5 L, Creatinine 0.76, Est GFR [...] % (Auto) 72.7, Lymph % (Auto) 16.1, [place] % (Auto) 8.8, Eos % (Auto) 2.1, Baso % (Auto) 0.3, Neut # (Auto) 5.3, Lymph # (Auto) 1.2, [place] # (Auto) 0.6, Eos# (Auto) 0.2, Baso [...] Neut % (Auto) 66.8, Lymph % (Auto) 21.0,[place] % (Auto) 9.2, Eos % (Auto) 2.6, Baso % (Auto) 0.4, Neut # (Auto) 4.1, Lymph # (Auto) 1.3, [place]# (Auto) 0.6, Eos # (Auto) 0.2, Baso [...] by Teresa Strong MD> 12/12/212042 [facility] Work Phone: [phone] 157-749208-16-2022 Progress note Author Arleen Stephen [facility] December 12, 2021 1:20pmNote Date/TimeAugust 2021 1:20pm[place] [address] Hospitalist Progress Note Signed Patient: Taye Gay MR#: [id number] : 1955 Acct:[id number] Age/Sex: 66 / F Adm Date: 2 Loc: Room: [address] [place] [address] Type: ADM INOo Attending Dr: Arleen Stephen [...] Arleen Stephen MD> 12/12/21 1320 [facility] Work Phone: [phone] Progress note Author Walter Montgomery [facility] December 12, 2021 8:07amNote Date/TimeAugust 2021 8:07[place] [address] General Surgery Progress Note Signed Patient: Taye Gay MR#: [id number] : 1955 Acct:[id number] Age/Sex: 66 / F Adm Date: 2 Loc: Room: [address] [place] [address] Type: ADM INOo Attending Dr: Arleen Stephen [...] @ 100 mls/hr IV Q24H [facility] Last Infusion: 12/11/21 10:15 Dose: Infused Sodium Chloride (0.9% Sodium Chloride 1,000 Ml) 1,000 mls @ 100 mls/hr IV .[id number] Stop: 12/12/22 00:00 Last Admin: 12/12/21 00:10 Dose: 100 mls/hr Insulin Aspart (Insulin Aspart 300 Units/3 Ml Insuln.Pen) 0 units SUBCUT TID.WM.HS [facility]; Protocol Stop: 12/09/22 11:59 Last Admin: 12/11/21 21:21 Dose: 3 units Nortriptyline HCl (Nortriptyline 25 Mg Capsule) 50 mg PO BID [facility] Stop: 12/09/22 20:59 Last Admin: 12/11/21 21:20 Dose: 50 mg Omeprazole (Omeprazole 20 Mg Capsule.Dr) 20 mg PO DAILY [facility] Stop: 12/10/22 08:59 Last Admin: 12/11/21 08:00 Dose: 20 mg Ondansetron HCl (Ondansetron 4 Mg/2 Ml Vial) 4 mg IV-PUSH Q8H PRN PRN Reason: Nausea And Vomiting Stop: 12/09/22 11:18 Pioglitazone HCl (Pioglitazone 15 Mg Tablet) 15 mg PO DAILY [facility] Stop: 12/10/22 08:59 Last Admin: 12/11/21 [...] Capsule) 30 mg PO QHS [facility] Stop: 12/09/22 21:59 Last Admin: 12/11/21 [...] Neut % (Auto) 66.8, Lymph % (Auto) 21.0,[place] % (Auto) 9.2, Eos % (Auto) 2.6, Baso % (Auto) 0.4, Neut # (Auto) 4.1, Lymph # (Auto) 1.3, [place]# (Auto) 0.6, Eos # (Auto) 0.2, Baso # (Auto) 0.0, Nucleated RBC % (auto) 0.1 12/11/21 11:05: POC Glucose 195 12/11/21 06:58: POC Glucose 172 12/10/21 21:10: POC Glucose 249 12/10/21 16:18: POC Glucose 176 12/10/21 11:20: POC Glucose 268 12/10/21 06:50: PHA Creatinine Clear 75.03, Sodium 139, Potassium 4.0, Chloride 107, Carbon Cplzxkh89.2, BUN 8 L, Creatinine 0.86, Est GFR [...] by DO Walter Montgomery> 12/12/21 0807 [facility] Work Phone: [phone] Consult note Author Teresa Strong [facility] December 11, 2021 9:25pmNote Date/TimeAugust 2021 8:10pmShane Ville [id number] Urology Consult Note Signed Patient: Taye Gay MR#: [id number] : 1955 Acct:[id number] Age/Sex: 66 / F Adm Date: 2 Loc: Room: [address] [place] [address] Type: ADM INOo Attending Dr: Arleen Stephen [...] Neut % (Auto) 66.8, Lymph % (Auto) 21.0,[place] % (Auto) 9.2, Eos % (Auto) 2.6, Baso % (Auto) 0.4, Neut # (Auto) 4.1, Lymph # (Auto) 1.3, [place]# (Auto) 0.6, Eos # (Auto) 0.2, Baso # (Auto) 0.0, Nucleated RBC % (auto) 0.1 12/11/21 11:05: POC Glucose 195 12/11/21 06:58: POC Glucose 172 12/10/21 21:10: POC Glucose 249 12/10/21 16:18: POC Glucose 176 12/10/21 11:20: POC Glucose 268 12/10/21 06:50: PHA Creatinine Clear 75.03, Sodium 139, Potassium 4.0, Chloride 107, Carbon Meknenx88.2, BUN 8 L, Creatinine 0.86, Est GFR ( Amer) > 60,Est GFR (Non-Af Amer) > 60, Glucose 153 H, Calcium 8.8 12/10/21 06:50: Corrected WBC 7.4, Uncorrected WBC Count 7.4, RBC 4.38, Hgb 14.0, Hct 41.5, MCV 94.9, MCH 32.0, MCHC 33.7, RDW 13.1, Plt Count 141 L D, MPV 9.3, Neut % (Auto) 63.3, Lymph % (Auto) 24.1, [place] % (Auto) 10.5, Eos % (Auto) 1.8, Baso % (Auto) 0.3, Neut # (Auto) 4.7, Lymph # (Auto) 1.8, [place] # (Auto) 0.8, Eos # (Auto) 0.1, [...] <Electronically signed by Teresa Strong MD> 12/11/21 7785 [facility] Work Phone: [phone] Consult note Author Walter Montgomery [facility] December 11, 2021 3:18pmNote Date/TimeAugust 2021 3:18pm[place] [address] General Surgery Consult Note Signed Patient: Taye Gay MR#: [id number] : 1955 Acct:[id number] Age/Sex: 66 / F Adm Date: 2 Loc: Room: [address] [place] [address] Type: ADM INOo Attending Dr: Arleen Stephen [...] insulin lispro 100 unit/mL subcutaneous pen ([facility] [employer]Star U-100 Insulin lispro) 1 sliding scaledose [...] Tablet.Dr) 81 mg PO DAILY [facility] Stop: 12/10/22 08:59 Last Admin: 12/11/21 08:00 Dose: 81 mg Atorvastatin Calcium (Atorvastatin 10 Mg Tablet) 10 mg PO DAILY [facility] Stop: 12/10/22 08:59 Last Admin: 12/11/21 [...] @ 100 mls/hr IV Q24H [facility] Last Infusion: 12/11/21 10:15 Dose: Infused Insulin Aspart (Insulin Aspart 300 Units/3 Ml Insuln.Pen) 0 units SUBCUT TID.[facility]; Protocol Stop: 12/09/22 11:59 Last Admin: 12/11/21 11:33 Dose: 3 units Nortriptyline HCl (Nortriptyline 25 Mg Capsule) 50 mg PO BID [facility] Stop: 12/09/22 20:59 Last Admin: 12/11/21 08:00 Dose: 50 mg Omeprazole (Omeprazole 20 Mg Capsule.Dr) 20 mg PO DAILY [facility] Stop: 12/10/22 08:59 Last Admin: 12/11/21 08:00 Dose: 20 mg Ondansetron HCl (Ondansetron 4 Mg/2 Ml Vial) 4 mg IV-PUSH Q8H PRN PRN Reason: Nausea And Vomiting Stop: 12/09/22 11:18 Pioglitazone HCl (Pioglitazone 15 Mg Tablet) 15 mg PO DAILY [facility] Stop: 12/10/22 08:59 Last Admin: 12/11/21 [...] Capsule) 30 mg PO QHS [facility] Stop: 12/09/22 21:59 Last Admin: 12/10/21 [...] % (Auto) 66.8, Lymph % (Auto) 21.0, [place] % (Auto) 9.2, Eos % (Auto) 2.6, Baso % (Auto) 0.4, Neut # (Auto) 4.1, Lymph # (Auto) 1.3, [place] # (Auto) 0.6, Eos# (Auto) 0.2, Baso # (Auto) 0.0, Nucleated RBC % (auto) 0.1 12/11/21 11:05: POC Glucose 195 12/11/21 06:58: POC Glucose 172 12/10/21 21:10: POC Glucose 249 12/10/21 16:18: POC Glucose 176 12/10/21 11:20: POC Glucose 268 12/10/21 06:50: PHA Creatinine Clear 75.03, Sodium 139, Potassium 4.0, Chloride 107, Carbon Bfmoigk26.2, BUN 8 L, Creatinine 0.86, Est GFR ( Amer) > 60,Est GFR (Non-Af Amer) > 60, Glucose 153 H, Calcium 8.8 12/10/21 06:50: Corrected WBC 7.4, Uncorrected WBC Count 7.4, RBC 4.38, Hgb 14.0, Hct 41.5, MCV 94.9, MCH 32.0, MCHC 33.7, RDW 13.1, Plt Count 141 L D, MPV 9.3, Neut % (Auto) 63.3, Lymph % (Auto) 24.1, [place] % (Auto) 10.5, Eos % (Auto) 1.8, Baso % (Auto) 0.3, Neut # (Auto) 4.7, Lymph # (Auto) 1.8, [place] # (Auto) 0.8, Eos # (Auto) 0.1, [...] Sodium 139, Potassium 3.9, Chloride 101, Carbon Qpmhgqj42.4, BUN 8 L, Creatinine 0.81, Est GFR [...] % (Auto) 79.8, Lymph % (Auto) 9.6, [place] % (Auto) 9.1, Eos % (Auto)1.1, Baso % (Auto) 0.4, Neut # (Auto) 10.3 H, Lymph # (Auto) 1.2, [place] # (Auto) 1.2 H, Eos # (Auto) 0.1, Baso # (Auto) 0.1, Nucleated RBC % (auto) 0.0 12/09/21 08:35: Urine Color Yellow, Urine Appearance Cloudy A, Urine pH 5.5, Ur Specific [place] 1.030, Urine Protein Negative, Urine Glucose (UA) [...] <Electronically signed by DO Walter Montgomery> 12/11/21 [facility] Work Phone: [phone] 533-103008-15-2022 Progress note Author Arleen Stephen [facility] December 11, 2021 1:33pmNote Date/TimeAugust 2021 1:[place] [address] Hospitalist Progress Note Signed Patient: Taye Gay MR#: [id number] : 1955 Acct:[id number] Age/Sex: 66 / F Adm Date: 2 Loc: Room: [address] [place] [address] Type: ADM INOo Attending Dr: Arleen Stephen [...] Arleen Stephen MD> 12/11/21 1333 [facility] Work Phone: 1(171) 544-530008-14-2022 Progress note Author Arleen Stephen [facility] December 10, 2021 11:26amNote Date/TimeAugust 2021 11:26[place] [id number] Hospitalist Progress Note Signed Patient: Taye Gay MR#: [id number] : 1955 Acct:[id number] Age/Sex: 66 / F Adm Date: 2 Loc: 3T Room: [address] [place] [address] Type: ADM IN Attending Dr: Arleen Stephen [...] 1,000 Ml IV 12/09/22 11:29 75 mls/hr .[id number] [place] Administration Ceftriaxone Sodium 1 gm in [...] Arleen Stephen MD> 12/10/21 1126 [facility] Work Phone: 1(614) 514-230208-13-2022 History and physical note Author Arleen Stephen [facility] December 09, 2021 11:38amNote Date/TimeAugust 2021 11:[place] [address] Hospitalist H&P Signed Patient: Taye Gay MR#: [id number] : 1955 Acct:[id number] Age/Sex: 66 / F Adm Date: 2 Loc: ER Room: Type: [facility] ER Attending Dr: Copies to: [...] 02/09/21] insulin lispro 100 unit/mL subcutaneous pen ([email or web address] U-100 Insulin [...] % (Auto) 9.6 % (.) 12/09/21 08:50 [place]verse % (Auto) 9.1 % (.) 12/09/21 08:50 Eos % (Auto) 1.1 % (.) 12/09/21 08:50 Baso % (Auto) 0.4 % (.) 12/09/21 08:50 Neut # (Auto) 10.3 x10E3/uL (1.8-7.7) H 12/09/21 08:50 Lymph # (Auto) 1.2 x10E3/uL (1.00-4.8) 12/09/21 08:50 [place] # (Auto) 1.2 x10E3/uL (0.0-0.8) H 12/09/21 [...] pH 5.5 (5.0-9.0) 12/09/21 08:35 Ur Specific [place] 1.030 (1.001-1.030) 12/09/21 08:35 Urine Protein Negative [...] by Arleen Stephen MD> 12/09/21 1138 [facility] Work Phone: [phone] 980-945606-16-2022 Evaluation note* Encounter Date Diagnosis Assessment Notes [...] good exercise tolerance overall. She [facility] see [facility] clinicfor management of her diabetes however [...] to get her started back on this. [employer] Other 03-14-2022 Evaluation note* Encounter Date Diagnosis Assessment Notes Treatment Notes Treatment Clinical Notes Jun, Type 2 diabetes mellitus with hy perglycemia (ICD-10 - E11.65) Managing type 2 diabetes material was published 1. Controlled, Type 2 diabetes with A1c 6% 2. Blood glucose levels improved. According to [employer] cgm download 06/26/2021- 07/09/2021: Avg glucose 132. [...] (ICD-10 - L84) f/u with Dr. Limon [employer] Other 03-07-2022 Evaluation note* Encounter Date Diagnosis [...] apnea would also be evaluated if needed [employer] Other 01-10-2022 Evaluation note* Encounter Date Diagnosis [...] not at all interested in any vaccines. [employer] Other 12-14-2021 Evaluation note* Encounter Date Diagnosis Assessment Notes Treatment Notes Treatment Clinical Notes Mar, Type 2 diabetes mellitus with hy perglycemia (ICD-10 - E11.65) [employer] Other 12-06-2021 Evaluation note* Encounter Date Diagnosis [...] 2021Pain in left leg (ICD-10 - M79.605) [employer] Other 11-29-2021 Evaluation note* Encounter Date Diagnosis Assessment Notes Treatment Notes Treatment Clinical Notes Feb, Type 2 diabetes mellitus with hy perglycemia (ICD-10 - E11.65) Managing type 2 diabetes material was published 1. Controlled, Type 2 diabetes with A1c 6.9% 2. Blood glucose levels according to [employer] cgm download 03/14/2021-03/27/2021: Avg glucose 167. >250-5%, [...] eating on a budget material was published [employer] Other 11-01-2021 Evaluation note* Encounter Date Diagnosis [...] in her feet sounds neurologic in origin. [employer] Other Chief complaint+Reason for visit Narrative* Reason for Visit [id number] Dietary counseling and surveillance Hyperlipidemia Hypertension Insulin long-term use Peripheral neuropathy Type 2 diabetes mellitus Vitamin B 12 deficiency [facility] Work Phone: Consult note Author Walter Montgomery [facility] December 11, 2021 3:18pmNote Date/TimeAugust 2021 3:[place] [address] General Surgery Consult Note Signed Patient: Taye Gay MR#: [id number] : 1955 Acct:[id number] Age/Sex: 66 / F Adm Date: 2 Loc: Room: [address] [place] [address] Type: ADM INOo Attending Dr: Arleen Stephen [...] Tablet.) 81 mg PO DAILY [facility] Stop: 12/10/22 08:59 Last Admin: 12/11/21 08:00 Dose: 81 mg Atorvastatin Calcium (Atorvastatin 10 Mg Tablet) 10 mg PO DAILY [facility] Stop: 12/10/22 08:59 Last Admin: 12/11/21 08:00 Dose: 10 mg Dextrose (Dextrose 50% In Water 25 Gm/50 Ml Syringe) 0 gm IV-PUSH PRN PRN PRN Reason: Hypoglycemia Stop: 12/09/22 11:18 Enoxaparin Sodium (Enoxaparin 40 Mg/0.4 Ml Syringe) 40 mg SUBCUT DAILY@10 [facility] Stop: 12/10/22 09:59 Last Admin: 12/11/21 [...] @ 100 mls/hr IV Q24H [facility] Last Infusion: 12/11/21 10:15 Dose: Infused Insulin Aspart (Insulin Aspart 300 Units/3 Ml Insuln.Pen) 0 units SUBCUT TID.WM.HS [facility]; Protocol Stop: 12/09/22 11:59 Last Admin: 12/11/21 11:33 Dose: 3 units Nortriptyline HCl (Nortriptyline 25 Mg Capsule) 50 mg PO BID [facility] Stop: 12/09/22 20:59 Last Admin: 12/11/21 08:00 Dose: 50 mg Omeprazole (Omeprazole 20 Mg Capsule.Dr) 20 mg PO DAILY [facility] Stop: 12/10/22 08:59 Last Admin: 12/11/21 08:00 Dose: 20 mg Ondansetron HCl (Ondansetron 4 Mg/2 Ml Vial) 4 mg IV-PUSH Q8H PRN PRN Reason: Nausea And Vomiting Stop: 12/09/22 11:18 Pioglitazone HCl (Pioglitazone 15 Mg Tablet) 15 mg PO DAILY [facility] Stop: 12/10/22 08:59 Last Admin: 12/11/21 [...] % (Auto) 66.8, Lymph % (Auto) 21.0, [place] % (Auto) 9.2, Eos % (Auto) 2.6, Baso % (Auto) 0.4, Neut # (Auto) 4.1, Lymph # (Auto) 1.3, [place] # (Auto) 0.6, Eos# (Auto) 0.2, Baso # (Auto) 0.0, Nucleated RBC % (auto) 0.1 12/11/21 11:05: POC Glucose 195 12/11/21 06:58: POC Glucose 172 12/10/21 21:10: POC Glucose 249 12/10/21 16:18: POC Glucose 176 12/10/21 11:20: POC Glucose 268 12/10/21 06:50: PHA Creatinine Clear 75.03, Sodium 139, Potassium 4.0, Chloride 107, Carbon Uhyasdb37.2, BUN 8 L, Creatinine 0.86, Est GFR ( Amer) > 60,Est GFR (Non-Af Amer) > 60, Glucose 153 H, Calcium 8.8 12/10/21 06:50: Corrected WBC 7.4, Uncorrected WBC Count 7.4, RBC 4.38, Hgb 14.0, Hct 41.5, MCV 94.9, MCH 32.0, MCHC 33.7, RDW 13.1, Plt Count 141 L D, MPV 9.3, Neut % (Auto) 63.3, Lymph % (Auto) 24.1, [place] % (Auto) 10.5, Eos % (Auto) 1.8, Baso % (Auto) 0.3, Neut # (Auto) 4.7, Lymph # (Auto) 1.8, [place] # (Auto) 0.8, Eos # (Auto) 0.1, [...] Sodium 139, Potassium 3.9, Chloride 101, Carbon Akwigvo96.4, BUN 8 L, Creatinine 0.81, Est GFR [...] % (Auto) 79.8, Lymph % (Auto) 9.6, [place] % (Auto) 9.1, Eos % (Auto)1.1, Baso % (Auto) 0.4, Neut # (Auto) 10.3 H, Lymph # (Auto) 1.2, [place] # (Auto) 1.2 H, Eos # (Auto) 0.1, Baso # (Auto) 0.1, Nucleated RBC % (auto) 0.0 12/09/21 08:35: Urine Color Yellow, Urine Appearance Cloudy A, Urine pH 5.5, Ur Specific [place] 1.030, Urine Protein Negative, Urine Glucose (UA) [...] <Electronically signed by DO Walter Montgomery> 12/11/21 9379 [facility] Work Phone: Consult note Author Teresa Strong [facility] December 11, 2021 9:25pmNote Date/TimeAugust 2021 8:10pmSh[place] [id number] Urology Consult Note Signed Patient: Taye Gay MR#: [id number] : 1955 Acct:[id number] Age/Sex: 66 / F Adm Date: 2 Loc: Room: [address] [place] [address] Type: ADM INOo Attending Dr: Arleen Stephen [...] Neut % (Auto) 66.8, Lymph % (Auto) 21.0,[place] % (Auto) 9.2, Eos % (Auto) 2.6, Baso % (Auto) 0.4, Neut # (Auto) 4.1, Lymph # (Auto) 1.3, [place]# (Auto) 0.6, Eos # (Auto) 0.2, Baso # (Auto) 0.0, Nucleated RBC % (auto) 0.1 12/11/21 11:05: POC Glucose 195 12/11/21 06:58: POC Glucose 172 12/10/21 21:10: POC Glucose 249 12/10/21 16:18: POC Glucose 176 12/10/21 11:20: POC Glucose 268 12/10/21 06:50: PHA Creatinine Clear 75.03, Sodium 139, Potassium 4.0, Chloride 107, Carbon Gxdnlae82.2, BUN 8 L, Creatinine 0.86, Est GFR ( Amer) > 60,Est GFR (Non-Af Amer) > 60, Glucose 153 H, Calcium 8.8 12/10/21 06:50: Corrected WBC 7.4, Uncorrected WBC Count 7.4, RBC 4.38, Hgb 14.0, Hct 41.5, MCV 94.9, MCH 32.0, MCHC 33.7, RDW 13.1, Plt Count 141 L D, MPV 9.3, Neut % (Auto) 63.3, Lymph % (Auto) 24.1, [place] % (Auto) 10.5, Eos % (Auto) 1.8, Baso % (Auto) 0.3, Neut # (Auto) 4.7, Lymph # (Auto) 1.8, [place] # (Auto) 0.8, Eos # (Auto) 0.1, [...] <Electronically signed by Teresa Strong MD> 12/11/212124 [facility] Work Phone: Consult note Author Lit Clark [facility] Hospital[facility] Date/TimeJanuary 2024 11:07am [place] [id number] Neurology Consult Note Signed Patient: Taye Gay MR#: [id number] : 1955 Acct:[id number] Age/Sex: 68 / F Adm Date: 4 Loc: 3T Room: [address] [place] [address] Type: ADM IN Attending Dr: Priscilla Lang MD Copies to: DO Sandra Garrido DO Rafik Massouh, MD~ HPI Consult Date: 04/29/24 Engine Research Engineer: Lit Clark DO Reason for consult: [...] negative unless noted below or in HPI [facility] Medical History BMI 32.0-32.9,adult Abnormal thyroid [...] (Stool Softener) 100 mg PO DAILY PRN eqkrlmexzzhe20/14/24 [History Confirmed 04/28/24] multivitamin 1 tab PO DAILY 06/12/23 [History Confirmed 04/28/24] pen needle, diabetic [Sure-Fine Pen [place]] 06/12/23 [History Confirmed 04/28/24] metformin 500 mg [...] Oz Bowling M.D.04/28/2024 9:46 PM Dictation Location: [place] [address] 04/28/24 19:44 IMPRESSION: No acute intracranial pathology. No evidence of focal stenosis, aneurysmal dilatation, dissection or occlusion. Impression dictated by: Oz Bowling M.D.04/28/2024 9:44 PM Dictation Location: [place] [address] Assessment/Plan (1) Atrial fibrillation: Qualifiers: Atrial fibrillation [...] may be metabolic in nature and not inbound sales representative necessarily of transient ischemia or [...] follow. Documented By: Lit Clark DO [id number] Signed By: <Electronically signed by Lit Clark DO> 04/29/24 1100 [facility] Work Phone: Discharge summary Author Wilmer Vance [facility] December 13, 2021 1:58pmNote Date/TimeAugust 2021 1:58pm[place] [address] Discharge Summary Signed Patient: Taye Gay MR#: [id number] : 1955 Acct:[id number] Age/Sex: 66 / F Adm Date: 2 Loc: 3T Room: [address] [place] [address]: Wilmer Vance MD Copies to: ObMD Corinna Dukes William L. DO~ Providers Date of Discharge: 12/13/21 Discharging Provider: Wilmer Vance Primary Care Provider: Jonas oYder Consults: 12/11/21 13:24 Consult to General Surgery [...] Sodium 137, Potassium 4.4, Chloride 105, Carbon Uhjrgko96.6, BUN 12, Creatinine 0.75, Est GFR ( Amer) > 60, Est GFR (Non-Af Amer) > 60, TotalBilirubin 0.7, Direct Bilirubin 0.2, Indirect Bilirubin 0.5 12/13/21 05:58: Corrected WBC 9.4, Uncorrected WBC Count 9.4, RBC 4.41, Hgb 14.2, Hct 41.9, MCV 95.1, MCH 32.2, MCHC 33.9, RDW 12.9, Plt Count 178, MPV 9.3,Neut % (Auto) 90.4, Lymph % (Auto) 7.7, [place] % (Auto) 1.8, Eos % (Auto) 0.0, Baso % (Auto) 0.1, Neut # (Auto) 8.5 H, Lymph # (Auto) 0.7 L, [place]# (Auto) 0.2,Eos # (Auto) 0.0, Baso # [...] scheduled appointment Instructions: Cholecystectomy, Laparoscopic Surgery, Acetaminophen, Cefuroxime,[facility] [place] [facility] [...] <Electronically signed by Wilmer Vance MD> 12/13/21 8476 [facility] Work Phone: Discharge summary Author Elva Florian [facility] September 15, 2023 1:17amNote Date/TimeMay 2023 2:20pm[place] [address] Discharge Summary Signed Patient: Taye Gay MR#: [id number] : 1955 Acct:[id number] Age/Sex: 67 / F Adm Date: 4 Loc: Room: [address] [place] [address]: Elva Florian MD Copies to: [...] .Route (DME) pen needle, diabetic [Sure-Fine Pen [place]] .Route (DME) FreeStyle Brent 14 Day Sensor [...] signed by Elva Florian MD> 09/15/23 0117 [facility] Work Phone: Discharge summary Author Priscilla Lang [facility] HospitalNote Date/TimeJanuary 2024 10:28am [address] [place] [address] Discharge Summary Signed Patient: Taye Gay MR#: [id number] : 1955 Acct:[id number] Age/Sex: 68 / F Adm Date: 4 Loc: 3T Room: [address] [place] [address]: Priscilla Lang MD Copies to: [...] taking multiple medications that could potentially cause IS ARCHITECT side effect and toxic encephalopathy. Diagnosis is [...] polypharmacy regimen to reduce her risk of IS ARCHITECT side effects or drug?drug interaction.At this time, [...] ask her primary care doctor to obtain [facility] record entirely to address abnormalities seen [...] ask your primary care provider to obtain [facility] records entirely to follow up on all [...] or having drug?drug interaction. Discharging you from [facility] does not mean that your medical care [...] constipation) (DME) pen needle, diabetic [Sure-Fine Pen [place]] .Route lidocaine 5 % ointment 1 applic [...] % (Auto) 63.5, Lymph % (Auto) 24.9, [place] % (Auto) 8.3, Eos % (Auto) 2.9, Baso % (Auto) 0.4, Nucleat RBC Rel Count 0.0, Neut # (Auto) 4.6, Lymph # (Auto) 1.8, [place] # (Auto) 0.6, Eos # (Auto) 0.2, [...] signed by Priscilla Lang MD> 04/30/24 1028 [facility] Work Phone: evaluation noteNo [facility] [employer] Other Evaluation note* Diagnosis Onset Date Resolution Status Cholelithiasis acuteEmphysematous cystitisacutePyelonephritisacuteRight lateral abdominal pain acute [facility] Work Phone: evaluation noteNo assessment information available [facility] Work Phone: Evaluation note* Diagnosis Onset Date Resolution Status [id number] acuteDietary counseling and surveillanceacuteHyperlipidemiaacuteHypertension acuteInsulin long-term useacutePeripheral neuropathyacuteType 2 diabetes mellitusacuteVitamin B 12 deficiencyacute [facility] Work Phone: Evaluation note* Diagnosis Onset Date Resolution Status BMI 28.0-28.9,adult [id number]-[id number] counseling and surveillanceacute HyperlipidemiaacuteHypertensionacuteInsulin long-term useacutePeripheral neuropathyacuteType 2 diabetes mellitusacuteVitamin B 12 deficiencyacute [facility] Work Phone: Evaluation note* Diagnosis Onset Date Resolution Status BMI 28.0-28.9,adult ugpudINO-[id number] counseling and surveillanceacute HyperlipidemiaacuteHypertensionacuteInsulin long-term useacutePeripheral neuropathyacuteType 2 diabetes mellitusacuteVitamin B 12 deficiencyacute DizzinessacuteHypertensionacutePrimary insomniaacuteType 2 diabetes mellitus acute [facility] Work Phone: Evaluation note* Diagnosis Onset Date Resolution Status BMI 28.0-28.9,adult bgbhkZXK-YFJD-[id number] counseling and surveillanceacute HyperlipidemiaacuteHypertensionacuteInsulin long-term useacutePeripheral neuropathyacuteType 2 diabetes mellitusacuteVitamin B 12 deficiencyacute DizzinessacuteHypertensionacutePrimary insomniaacuteType 2 diabetes mellitus acutePAD (peripheral artery disease)[facility] Work Phone: Evaluation note* Diagnosis Onset Date Resolution Status PAD (peripheral artery disease) acuteBMI 28.0-28.9,kttayanbqfBBX-VRFE-[id number] counseling and surveillanceacuteHyperlipidemiaacuteHypertensionacutePeripheral neuropathyacute TachycardiaacuteType 2 diabetes mellitusacuteVitamin B 12 deficiencyacuteAtrial flutter with rapid ventricular responseacuteChest painacuteHyperlipidemiaacute HypertensionacuteNew onset atrial flutteracuteType [address] [facility] Work Phone: Evaluation note* Diagnosis Onset Date Resolution Status PAD (peripheral artery disease) acuteBMI 28.0-28.9,uefxuztsvoGPJ-GLWM-[id number] counseling and surveillanceacuteHyperlipidemiaacuteHypertensionacutePeripheral neuropathyacute TachycardiaacuteType 2 diabetes mellitusacuteVitamin B 12 deficiencyacuteAtrial flutter with rapid ventricular responseacuteChest painacuteHyperlipidemiaacute HypertensionacuteNew onset atrial flutteracuteType 2 diabetes mellitusacuteNew onset atrial flutteracuteMobility impairednoneactive [facility] Work Phone: Evaluation note* Diagnosis Typical atrial flutter (Multi) Nonischemic cardiomyopathy (Multi) Other primary cardiomyopathies Hypertension, unspecified type Hypercholesteremia Pure hypercholesterolemia Smoker Tobacco use disorder Type 2 diabetes mellitus with other specified complication, unspecified whether long term care social worker insulin use (Multi) BMI 28.0-28.9,adult documented in this encounter [facility] Work Phone: Evaluation note* Diagnosis Onset Date Resolution Status BMI 28.0-28.9,adult hwstnEWX-HEKP-[id number] counseling and surveillanceacute HyperlipidemiaacuteHypertensionacutePeripheral neuropathyacuteTachycardiaacute Type 2 diabetes mellitusacuteVitamin B 12 deficiencyacuteHyperlipidemiaacute HypertensionacuteNew onset atrial flutteracuteType 2 diabetes mellitusacute Atrial flutter with rapid ventricular responseresolvedChest painresolvedHospital discharge follow-upacuteNew onset atrial flutteracutePrimary insomniaacuteType 2 diabetes mellitusacuteMobility impairednoneactive [facility] Work Phone: Evaluation note* Diagnosis Onset Date Resolution Status BMI 28.0-28.9,adult heqjxJTW-[id number] counseling and surveillanceacute HyperlipidemiaacuteHypertensionacutePeripheral neuropathyacuteTachycardiaacute Type 2 diabetes mellitusacuteVitamin B 12 deficiencyacuteHyperlipidemiaacute HypertensionacuteNew onset atrial flutteracuteType 2 diabetes mellitusacute Atrial flutter with rapid ventricular responseresolvedChest painresolvedHospital discharge follow-upacuteNew onset atrial flutteracutePrimary insomniaacuteType 2 diabetes mellitusacuteMobility impairednoneactiveAmbulatory dysfunctionacute HypomagnesemiaacuteHypothyroidacuteType 2 diabetes mellitus with hyperglycemia acuteWeak[facility] Work Phone: Evaluation note* Diagnosis Onset Date Resolution Status BMI 28.0-28.9,adult frejkIZF-[id number] counseling and surveillanceacute HyperlipidemiaacuteHypertensionacutePeripheral neuropathyacuteTachycardiaacute Type 2 diabetes mellitusacuteVitamin B 12 deficiencyacuteHyperlipidemiaacute HypertensionacuteNew onset atrial flutteracuteType 2 diabetes mellitusacute Atrial flutter with rapid ventricular responseresolvedChest painresolvedHospital discharge follow-upacuteNew onset atrial flutteracutePrimary insomniaacuteType 2 diabetes mellitusacuteMobility impairednoneactiveAmbulatory dysfunctionacute HypomagnesemiaacuteHypothyroidacuteType 2 diabetes mellitus with hyperglycemia acuteVitamin B 12 deficiencyacuteWeakK[facility] Work Phone: Evaluation note* Diagnosis Onset Date Resolution Status BMI 28.0-28.9,adult shuouVGS-[id number] counseling and surveillanceacute HyperlipidemiaacuteHypertensionacutePeripheral neuropathyacuteTachycardiaacute Type 2 diabetes mellitusacuteVitamin B 12 deficiencyacuteHyperlipidemiaacute HypertensionacuteNew onset atrial flutteracuteType 2 diabetes mellitusacute Atrial flutter with rapid ventricular responseresolvedChest painresolvedHospital discharge follow-upacuteNew onset atrial flutteracutePrimary insomniaacuteType 2 diabetes mellitusacuteMobility impairednoneactiveAmbulatory dysfunctionacute HypomagnesemiaacuteHypothyroidacuteType 2 diabetes mellitus with hyperglycemia acuteVitamin B [address] [facility] [place]acuteBMI 28.0-28.9,adultacute [id number] counseling and surveillanceacuteHyperlipidemia acuteHypertensionacutePeripheral neuropathyacuteType 2 diabetes mellitusacute Vitamin B 12 deficiencyacute [facility] Work Phone: Evaluation note* Diagnosis Onset Date Resolution Status BMI 28.0-28.9,adult wktzpMVH-CIKI-[id number] counseling and surveillanceacute HyperlipidemiaacuteHypertensionacutePeripheral neuropathyacuteTachycardiaacute Type 2 diabetes mellitusacuteVitamin B 12 deficiencyacuteHyperlipidemiaacute HypertensionacuteNew onset atrial flutteracuteType 2 diabetes mellitusacute Atrial flutter with rapid ventricular responseresolvedChest painresolvedHospital discharge follow-upacuteNew onset atrial flutteracutePrimary insomniaacuteType 2 diabetes mellitusacuteMobility impairednoneactiveAmbulatory dysfunctionacute HypomagnesemiaacuteHypothyroidacuteType 2 diabetes mellitus with hyperglycemia acuteVitamin B 12 deficiencyacuteWeflagstaff medical centeracuteAbnormal thyroid blood testacute BMI 28.0-28.9,qpsmeydjbvXMS-XIPX-[id number] counseling and surveillanceacuteHyperlipidemiaacuteHypertensionacutePeripheral neuropathyacute Type 2 diabetes mellitusacuteVitamin B 12 deficiencyPark[facility] Work Phone: Evaluation note* Diagnosis Onset Date Resolution Status BMI 28.0-28.9,adult iwwhhJBV-SZXD-[id number] counseling and surveillanceacute HyperlipidemiaacuteHypertensionacutePeripheral neuropathyacuteTachycardiaacute Type 2 diabetes mellitusacuteVitamin B 12 deficiencyacuteHyperlipidemiaacute HypertensionacuteNew onset atrial flutteracuteType 2 diabetes mellitusacute Atrial flutter with rapid ventricular responseresolvedChest painresolvedHospital discharge follow-upacuteNew onset atrial flutteracutePrimary insomniaacuteType 2 diabetes mellitusacuteMobility impairednoneactiveAmbulatory dysfunctionacute HypomagnesemiaacuteHypothyroidacuteType 2 diabetes mellitus with hyperglycemia acuteVitamin B 12 deficiencyacuteWeaknessacuteAbnormal thyroid blood testacute BMI 28.0-28.9,yxhhpgqsheWVD-OLJR-[id number] counseling and surveillanceacuteHyperlipidemiaacuteHypertensionacutePeripheral neuropathyacute Type 2 diabetes mellitusacuteVitamin B 12 deficiencyacuteHospital discharge follow-upacuteHypomagnesemiaacute [facility] Work Phone: Evaluation note* Diagnosis Onset Date Resolution Status Ambulatory dysfunction acuteHypomagnesemiaacuteHypothyroidacuteType 2 diabetes mellitus with hyperglycemiaacuteVitamin B 12 deficiencyacuteWeaknessacuteAbnormal thyroid blood testacuteBMI 28.0-28.9,ifxrlygawmLKO-CCSD-[id number] counseling and surveillanceacuteHyperlipidemiaacuteHypertensionacutePeripheral neuropathy acuteType 2 diabetes mellitusacuteVitamin B 12 deficiencyacuteHospital discharge follow-upacuteHypomagnesemiaacute [facility] Work Phone: Evaluation note* Diagnosis Ulcer of right foot, limited to breakdown of skin (CMS/HCC)- Primary Blister of right foot, subsequent encounter 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) [facility]* Diagnosis Onset Date Resolution Status Ambulatory dysfunction acuteHypomagnesemiaacuteHypothyroidacuteType 2 diabetes mellitus with hyperglycemiaacuteVitamin B 12 deficiencyacuteWeaknessacuteAbnormal thyroid blood testacuteBMI 28.0-28.9,bzkxhacjvqZBW-ZQCW-[id number] counseling and surveillanceacuteHyperlipidemiaacuteHypertensionacutePeripheral neuropathy acuteType 2 diabetes mellitusacuteVitamin B 12 deficiencyacuteHospital discharge follow-upacuteHypomagnesemiaacuteWeakascension [facility] [place] [facility] Work Phone: Evaluation note* Diagnosis Leg [...] layer exposed (CMS/HCC) documented in this encounter [facility] HealthcareEvaluation note* Diagnosis Leg pain, bilateral- [...] syndrome B12 deficiency documented in this encounter [facility] HealthcareEvaluation note* Diagnosis Hypertension, unspecified type Typical atrial flutter (Multi) documented in this encounter [facility] Work Phone: Evaluation note* Diagnosis Lumbosacral radiculopathy at S1- Primary Neurogenic pain Cervical paraspinal muscle spasm Spasm of muscle Lumbar paraspinal muscle spasm Other symptoms referable to back Carpal tunnel syndrome, bilateral Carpal tunnel syndrome B12 deficiency documented in this encounter [facility] HealthcareEvaluation note* Diagnosis Nonischemic cardiomyopathy (Multi)- Primary Other primary cardiomyopathies Typical atrial flutter (Multi) Hypercholesteremia Pure hypercholesterolemia Primary hypertension Unspecified essential hypertension Current smoker BMI 28.0-28.9,adult High risk medication use documented in this encounter [facility] Work Phone: Evaluation note* Diagnosis Leg [...] of foot (CMS/HCC) documented in this encounter [facility] HealthcareEvaluation note* Diagnosis High risk medication use- Primary Typical atrial flutter (Multi) Nonischemic cardiomyopathy (Multi) Other primary cardiomyopathies Hypercholesteremia Pure hypercholesterolemia BMI 28.0-28.9,adult BMI 30.0-30.9,adult Current smoker documented in this encounter [facility] Work Phone: Evaluation note* Diagnosis Carpal tunnel syndrome, bilateral- Primary Carpal tunnel syndrome documented in this encounter [facility] HealthcareEvaluation note* Diagnosis Ulcer of right foot, limited to breakdown of skin (CMS/HCC)- Primary Cellulitis of right foot documented in this encounter [facility] HealthcareEvaluation note* Diagnosis Ulcer of right foot, limited to breakdown of skin (CMS/HCC)- Primary Blister of right foot, initial encounter 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) documented in this encounter [facility] HealthcareEvaluation note* Diagnosis Typical atrial flutter (Multi)- Primary Nonischemic cardiomyopathy (Multi) Other primary cardiomyopathies Hypercholesteremia Pure hypercholesterolemia Hypertension, unspecified type BMI 32.0-32.9,adult Current smoker documented in this encounter [facility] Work Phone: Evaluation note* Diagnosis Leg [...] radiculopathy at L5 documented in this encounter [facility] HealthcareEvaluation note* Diagnosis Typical atrial flutter (Multi)- Primary Nonischemic cardiomyopathy (Multi) Other primary cardiomyopathies Hypertension, unspecified type Hypercholesteremia Pure hypercholesterolemia Obesity (BMI 30-39.9) Current smoker documented in this encounter [facility] Work Phone: Evaluation note* Diagnosis Leg [...] HealthcareHistory and physical note Author Arleen Stephen [facility] December 09, 2021 11:38amNote Date/TimeAugust 2021 11:38[place] [address] Hospitalist H&P Signed Patient: Taye Gay MR#: [id number] : 1955 Acct:[id number] Age/Sex: 66 / F Adm Date: 2 Loc: ER Room: Type: [facility] ER Attending Dr: Copies to: [...] % (Auto) 9.6 % (.) 12/09/21 08:50 Converse % (Auto) 9.1 % (.) 12/09/21 08:50 Eos % (Auto) 1.1 % (.) 12/09/21 08:50 Baso % (Auto) 0.4 % (.) 12/09/21 08:50 Neut # (Auto) 10.3 x10E3/uL (1.8-7.7) H 12/09/21 08:50 Lymph # (Auto) 1.2 x10E3/uL (1.00-4.8) 12/09/21 08:50 Converse # (Auto) 1.2 x10E3/uL (0.0-0.8) H 12/09/21 [...] pH 5.5 (5.0-9.0) 12/09/21 08:35 Ur Specific [place] 1.030 (1.001-1.030) 12/09/21 08:35 Urine Protein Negative [...] by Arleen Stephen MD> 12/09/21 1138 [facility] Work Phone: History and physical note Author Jluis Campos [facility] November 10, 2023 6:20amNote Date/TimeJuly 2023 6:11am[place] [id number] Hospitalist H&P Signed Patient: Taye Gay MR#: [id number] : 1955 Acct:[id number] Age/Sex: 67 / F Adm Date: 4 Loc: 4N Room: 6L0107-4 Type: ADM IN Attending Dr: Jluis Campos [...] negative unless noted below or in HPI [facility] Medical History History of esophageal stricture [...] Confirmed 11/09/23] pen needle, diabetic [Sure-Fine [place]] 06/12/23 [History Confirmed 11/09/23] omeprazole 20 mg [...] weaknesses were noted, patient unable to ambulate. Fifp-rg-sxko test was normal. No tremors or ataxia with deoaby-wq-hkhn movements. Neuro: AOx3, CN II-VII intact. Moves [...] % (Auto) 26.0 % (.) 11/10/23 03:41 Converse % (Auto) 8.2 % (.) 11/10/23 03:41 Eos % (Auto) 3.7 % (.) 11/10/23 03:41 Baso % (Auto) 0.9 % (.) 11/10/23 03:41 Nucleat RBC Rel Count 0.1 /100 WBC (0-0.5) 11/10/23 03:41 Neut # (Auto) 5.2 x10E3/uL (1.8-7.7) 11/10/23 03:41 Lymph # (Auto) 2.2 x10E3/uL (1.00-4.8) 11/10/23 03:41 Converse # (Auto) 0.7 x10E3/uL (0.0-0.8) 11/10/23 03:41 [...] pH 6.0 (5.0-9.0) 11/10/23 05:02 Ur Specific [place] 1.007 (1.001-1.030) 11/10/23 05:02 Urine Protein Negative [...] signed by Jluis Campos DO> 11/10/23 0620 [facility] Work Phone: History and physical note Author Jori Hearn [facility] HospitalNote Date/TimeJanuary 2024 6:39[place] [address] Hospitalist H&P Signed Patient: Taye Gay MR#: [id number] : 1955 Acct:[id number] Age/Sex: 68 / F Adm Date: 4 Loc: Room: [address] [place] [address] Type: ADM IN Attending Dr: Jori Hearn [...] of dementia, possible Alzheimer's dementia -continue home ovlrujrlp91 mg twice daily and donepezil 20 mg daily 12. Atrial fibrillation - continue Eliquis 5 mg twice daily for anticoagulationand carvedilol 12.5 mg twice daily. EKG in ER shows NSR 13. Hypoxia - no respiratory distress or cardiopulmonary complaints to accompany this. Will monitortelemetry and address as needed [facility] Medical History BMI 32.0-32.9,adult Abnormal thyroid [...] (Stool Softener) 100 mg PO DAILY PRN ygnvhsepmrtt74/14/24 [History Confirmed 04/28/24] multivitamin 1 tab PO DAILY 06/12/23 [History Confirmed 04/28/24] pen needle, diabetic [Sure-Fine [place]] 06/12/23 [History Confirmed 04/28/24] metformin 500 mg [...] % (Auto) 24.6 % (.) 04/28/24 19:54 Converse % (Auto) 7.6 % (.) 04/28/24 19:54 Eos % (Auto) 2.7 % (.) 04/28/24 19:54 Baso % (Auto) 1.1 % (.) 04/28/24 19:54 Nucleat RBC Rel Count 0.2 /100 WBC (0-0.5) 04/28/24 19:54 Neut # (Auto) 6.5 x10E3/uL (1.8-7.7) 04/28/24 19:54 Lymph # (Auto) 2.5 x10E3/uL (1.00-4.8) 04/28/24 19:54 Con[place] # (Auto) 0.8 x10E3/uL (0.0-0.8) 04/28/24 19:54 [...] pH 5.5 (5.0-9.0) 04/28/24 22:02 Ur Specific [place] 1.038 (1.001-1.030) H 04/28/24 22:02 Urine Protein [...] Jori Hearn DO> 04/29/24 0639 [facility] Work Phone: History and physical note Author Manjit Gleason [facility] HospitalNote Date/TimeMay 2024 12:41[place] [address] Gastroenterology H&P Signed Patient: Taye Gay MR#: [id number] : 1955 Acct:[id number] Age/Sex: 68 / F Adm Date: 5 [...] signed by Manjit Gleason MD> 09/10/24 1241 [facility] Work Phone: Hisuufx general Narrative - Reported* Type Description Date Medical History HTN Medical HistoryDiabetesMedical HistoryObesityMedical HistoryHLPMedical History tonsillectomyMedical HistoryhysterectomyMedical HistoryCataracts removed BilateralMedical HistoryUpper eye liftSurgical HistorytonsillectomySurgical HistoryhysterectomySurgical Historycataracts, bilaterallySurgical Historyeye lid surgerySurgical Historyremoved cervix12/2018 [employer] Other History general Narrative - Reported* Type Description Date Medical History HTN Medical HistoryDiabetesMedical HistoryObesityMedical HistoryHLPMedical History tonsillectomyMedical HistoryhysterectomyMedical HistoryCataracts removed BilateralMedical HistoryUpper eye liftSurgical HistorytonsillectomySurgical HistoryhysterectomySurgical Historycataracts, bilaterallySurgical Historyeye lid surgerySurgical Historyremoved cervix2019Hospitalization HistorySee Above [employer] Other History general Narrative - Reported* Type Description Date Medical History HTN Medical HistoryDiabetesMedical HistoryObesityMedical HistoryHLPMedical History tonsillectomyMedical HistoryhysterectomyMedical HistoryCataracts removed BilateralMedical HistoryUpper eye liftSurgical HistorytonsillectomySurgical Historypartial hysterectomySurgical Historycataracts, bilaterallySurgical Historyeye lid surgery--bilateralSurgical Historyremoved cervix12/2018 Hospitalization HistorySee Above [employer] Other History general Narrative - Reported* Type Description Date Medical History HTN Medical HistoryDiabetesMedical HistoryObesityMedical HistoryHLPMedical History tonsillectomyMedical HistoryhysterectomyMedical HistoryCataracts removed BilateralMedical HistoryUpper eye liftSurgical HistorytonsillectomySurgical Historypartial hysterectomySurgical Historycataracts, bilaterallySurgical Historyeye lid surgery--bilateralSurgical Historyremoved cervix12/2018Surgical HistoryCholecystectomyurgical HistoryLeft foot and great toe surgery 12/29/2021Hospitalization HistorySee AboveHospitalization HistoryUTI and gallbladder removal11/2021 [employer] Other Histpuy general Narrative - Reported* Type Description Date Medical History HTN Medical HistoryDiabetesMedical HistoryObesityMedical HistoryHLPMedical History tonsillectomyMedical HistoryhysterectomyMedical HistoryCataracts removed BilateralMedical HistoryUpper eye liftSurgical HistorytonsillectomySurgical Historypartial hysterectomySurgical Historycataracts, bilaterallySurgical Historyeye lid surgery--bilateralSurgical Historyremoved cervix12/2018Surgical HistoryCholecystectomy12/12/21Surgical HistoryLeft foot and great toe surgery 12/29/2021Hospitalization HistorySee AboveHospitalization HistoryUTI and gallbladder removal11/2021 [employer] Other [facility] Work Phone: [facility] Work Phone: [facility] instructions[facility] Work Phone: [facility] Discharge instructionsAmbulatory Orders* Initiate Home [...] - Care to be managed by PCP [facility] Work Phone: Hospital Discharge instructions Additional Instructions I may not have addressed or treated all of your medical illnesses or the abnormal blood work or imaging studies during this hospitalization. Please ask your primary care provider to obtain [facility] records entirely to follow up on all [...] having drug drug interaction. Discharging you from [facility] does not mean that your medical care ends here and now. You may still need additional monitoring, work up, investigation, and treatment plan to be handled from this point on by out patient providers including your primary care provider and specialists. For any medication question, please contact your retail pharmacist or your primary care provider. Thank you.[facility] Work Phone: Hospital Discharge instructionsAmbulatory Orders* Referral to Pain Management Location: None Selected [facility] Work Phone: Progress note Author Arleen Stephen [facility] December 10, 2021 11:26amNote Date/TimeAugust 2021 11:26[place] [id number] Hospitalist Progress Note Signed Patient: Taye Gay MR#: [id number] : 1955 Acct:[id number] Age/Sex: 66 / F Adm Date: 2 Loc: Room: [address] [place] [address] Type: ADM IN Attending Dr: Arleen Stephen [...] 1,000 Ml IV 12/09/22 11:29 75 mls/hr .[id number] [place] Administration Ceftriaxone Sodium 1 gm in [...] signed by Arleen Stephen MD> 12/10/211125 [facility] Work Phone: Progress note Author Arleen Stephen [facility] December 11, 2021 1:33pmNote Date/TimeAugust 2021 1:30[place] [address] Hospitalist Progress Note Signed Patient: Taye Gay MR#: [id number] : 1955 Acct:[id number] Age/Sex: 66 / F Adm Date: 2 Loc: Room: [address] [place] [address] Type: ADM INOo Attending Dr: Arleen Stephen [...] Arleen Stephen MD> 12/11/21 1333 [facility] Work Phone: Progress note Author Walter Strongkarlos [facility] December 12, 2021 8:07amNote Date/TimeAugust 2021 8:07[place] [address] General Surgery Progress Note Signed Patient: Taye Gay MR#: [id number] : 1955 Acct:[id number] Age/Sex: 66 / F Adm Date: 2 Loc: Room: [address] [place] [address] Type: ADM INOo Attending Dr: Arleen Stephen [...] 12/09/21] insulin lispro 100 unit/mL [facility] pen [facility] Insulin lispro) 1 sliding [...] Tablet.Dr) 81 mg PO DAILY [facility] Stop: 12/10/22 08:59 Last Admin: 12/11/21 08:00 Dose: 81 mg Atorvastatin Calcium (Atorvastatin 10 Mg Tablet) 10 mg PO DAILY [facility] Stop: 12/10/22 08:59 Last Admin: 12/11/21 08:00 Dose: 10 mg Dextrose (Dextrose 50% In Water 25 Gm/50 Ml Syringe) 0 gm IV-PUSH PRN PRN PRN Reason: Hypoglycemia Stop: 12/09/22 11:18 Enoxaparin Sodium (Enoxaparin 40 Mg/0.4 Ml Syringe) 40 mg SUBCUT DAILY@10 [facility] Stop: 12/10/22 09:59 Last Admin: 12/11/21 [...] @ 100 mls/hr IV Q24H [facility] Last Infusion: 12/11/21 10:15 Dose: Infused Sodium Chloride (0.9% Sodium Chloride 1,000 Ml) 1,000 mls @ 100 mls/hr IV .[id number] Stop: 12/12/22 00:00 Last Admin: 12/12/21 00:10 Dose: 100 mls/hr Insulin Aspart (Insulin Aspart 300 Units/3 Ml Insuln.Pen) 0 units SUBCUT TID.[facility]; Protocol Stop: 12/09/22 11:59 Last Admin: 12/11/21 21:21 Dose: 3 units Nortriptyline HCl (Nortriptyline 25 Mg Capsule) 50 mg PO BID [facility] Stop: 12/09/22 20:59 Last Admin: 12/11/21 21:20 Dose: 50 mg Omeprazole (Omeprazole 20 Mg Capsule.Dr) 20 mg PO DAILY [facility] Stop: 12/10/22 08:59 Last Admin: 12/11/21 08:00 Dose: 20 mg Ondansetron HCl (Ondansetron 4 Mg/2 Ml Vial) 4 mg IV-PUSH Q8H PRN PRN Reason: Nausea And Vomiting Stop: 12/09/22 11:18 Pioglitazone HCl (Pioglitazone 15 Mg Tablet) 15 mg PO DAILY [facility] Stop: 12/10/22 08:59 Last Admin: 12/11/21 [...] Capsule) 30 mg PO QHS [facility] Stop: 12/09/22 21:59 Last Admin: 12/11/21 [...] Neut % (Auto) 66.8, Lymph % (Auto) 21.0,[place] % (Auto) 9.2, Eos % (Auto) 2.6, Baso % (Auto) 0.4, Neut # (Auto) 4.1, Lymph # (Auto) 1.3, [place]# (Auto) 0.6, Eos # (Auto) 0.2, Baso # (Auto) 0.0, Nucleated RBC % (auto) 0.1 12/11/21 11:05: POC Glucose 195 12/11/21 06:58: POC Glucose 172 12/10/21 21:10: POC Glucose 249 12/10/21 16:18: POC Glucose 176 12/10/21 11:20: POC Glucose 268 12/10/21 06:50: PHA Creatinine Clear 75.03, Sodium 139, Potassium 4.0, Chloride 107, Carbon Affigeo10.2, BUN 8 L, Creatinine 0.86, Est GFR [...] <Electronically signed by DO Walter Montgomery> 12/12/[address] [place] [address] Work Phone: Progress note Author Arleen Stephen [facility] December 12, 2021 1:20pmNote Date/TimeAugust 2021 1:20pm[place] [address] Hospitalist Progress Note Signed Patient: Taye Gay MR#: [id number] : 1955 Acct:[id number] Age/Sex: 66 / F Adm Date: 2 Loc: Room: [address] [place] [address] Type: ADM INOo Attending Dr: Arleen Stephen [...] 12/12/21 11:57 Rocephin IV 100 mls/hr Q24H PAR[place] Administration Sodium Chloride 1,000 mls @ 100 [...] 12/10/22 08:59 Not Given DAILY [facility] Potassium Chloride 40 meq 12/09/21 11:19 [...] by Arleen Stephen MD> 12/12/21 1320 [facility] Work Phone: Progress note Author Teresa guerline [facility] December 12, 2021 8:43pmNote Date/TimeAugust 2021 2:49pm[place] [address] Urology Progress Note Signed Patient: Taye Gay MR#: [id number] : 1955 Acct:[id number] Age/Sex: 66 / F Adm Date: 2 Loc: Room: [address] [place] [address] Type: ADM INOo Attending Dr: Arleen Stephen [...] Sodium 136, Potassium 3.8, Chloride 103, Carbon Unapoqu26.5, BUN 5 L, Creatinine 0.76, Est GFR [...] % (Auto) 72.7, Lymph % (Auto) 16.1, [place] % (Auto) 8.8, Eos % (Auto) 2.1, Baso % (Auto) 0.3, Neut # (Auto) 5.3, Lymph # (Auto) 1.2, [place] # (Auto) 0.6, Eos# (Auto) 0.2, Baso [...] Neut % (Auto) 66.8, Lymph % (Auto) 21.0,[place] % (Auto) 9.2, Eos % (Auto) 2.6, Baso % (Auto) 0.4, Neut # (Auto) 4.1, Lymph # (Auto) 1.3, [place]# (Auto) 0.6, Eos # (Auto) 0.2, Baso [...] by Teresa Strong MD> 12/12/212042 [facility] Work Phone: Progress note Author Walter Strongkarlos [facility] December 13, 2021 8:52amNote Date/TimeAugust 2021 8:52[place] [address] General Surgery Progress Note Signed Patient: Taye Gay MR#: [id number] : 1955 Acct:[id number] Age/Sex: 66 / F Adm Date: 2 Loc: Room: [address] [place] [address] Type: ADM INOo Attending Dr: Wilmer Vance [...] 12/09/21] insulin lispro 100 unit/mL subcutaneous pen [facility] Insulin lispro) 1 sliding [...] Tablet.Dr) 81 mg PO DAILY [facility] Stop: 12/10/22 08:59 Last Admin: 12/12/21 10:33 Dose: Not Given Atorvastatin Calcium (Atorvastatin 10 Mg Tablet) 10 mg PO DAILY [facility] Stop: 12/10/22 08:59 Last Admin: 12/12/21 10:33 Dose: Not Given Cyanocobalamin (Cyanocobalamin 1,000 Mcg Tablet) 1,000 mcg PO DAILY [facility] Stop: 12/13/22 08:59 Dextrose (Dextrose 50% In Water 25 Gm/50 Ml Syringe) 0 gm IV-PUSH PRN PRN PRN Reason: Hypoglycemia Stop: 12/09/22 11:18 Docusate Sodium (Docusate 100 Mg Capsule) 100 mg PO TID [facility] Stop: 12/12/22 21:59 Last Admin: 12/12/21 [...] @ 100 mls/hr IV Q24H [facility] Last Admin: 12/12/21 11:57 Dose: 100 mls/hr Sodium Chloride (0.9% Sodium Chloride 1,000 Ml) 1,000 mls @ 100 mls/hr IV .[id number] Stop: 12/12/22 00:00 Last Infusion: 12/13/21 03:35 Dose: Infused Lactated Ringer's (Lactated Ringers) 1,000 mls @ 20 mls/hr IV .Q24H [facility] Stop: 12/13/21 11:13 Last Infusion: 12/13/21 03:31 Dose: Infused Insulin Aspart (Insulin Aspart 300 Units/3 Ml Insuln.Pen) 0 units SUBCUT TID.[facility]; Protocol Stop: 12/09/22 11:59 Last Admin: 12/13/21 08:07 Dose: 4 units Nortriptyline HCl (Nortriptyline 25 Mg Capsule) 50 mg PO BID [facility] Stop: 12/09/22 20:59 Last Admin: 12/12/21 22:27 Dose: 50 mg Omeprazole (Omeprazole 20 Mg Capsule.Dr) 20 mg PO DAILY [facility] Stop: 12/10/22 08:59 Last Admin: 12/12/21 10:33 Dose: Not Given Ondansetron HCl (Ondansetron 4 Mg/2 Ml Vial) 4 mg IV-PUSH Q6H PRN PRN Reason: Nausea And Vomiting Stop: 12/12/22 18:19 Pioglitazone HCl (Pioglitazone 15 Mg Tablet) 15 mg PO DAILY [facility] Stop: 12/10/22 08:59 Last Admin: 12/12/21 [...] Capsule) 30 mg PO QHS [facility] Stop: 12/09/22 21:59 Last Admin: 12/12/21 [...] Sodium 137, Potassium 4.4, Chloride 105, Carbon Fmlfuyw25.6, BUN 12, Creatinine 0.75, Est GFR ( Amer) > 60, Est GFR (Non-Af Amer) > 60, TotalBilirubin 0.7, Direct Bilirubin 0.2, Indirect Bilirubin 0.5 12/13/21 05:58: Corrected WBC 9.4, Uncorrected WBC Count 9.4, RBC 4.41, Hgb 14.2, Hct 41.9, MCV 95.1, MCH 32.2, MCHC 33.9, RDW 12.9, Plt Count 178, MPV 9.3,Neut % (Auto) 90.4, Lymph % (Auto) 7.7, [place] % (Auto) 1.8, Eos % (Auto) 0.0, Baso % (Auto) 0.1, Neut # (Auto) 8.5 H, Lymph # (Auto) 0.7 L, [place]# (Auto) 0.2, Eos # (Auto) 0.0, Baso # (Auto) 0.0, Nucleated RBC % (auto) 0.0 12/12/21 20:42: POC Glucose 214 12/12/21 18:25: POC Glucose 178 12/12/21 15:26: POC Glucose 133 12/12/21 11:48: POC Glucose 167 12/12/21 07:47: PHA Creatinine Clear 83.77, Sodium 136, Potassium 3.8, Chloride 103, Carbon Ddcwkmt97.5, BUN 5 L, Creatinine 0.76, Est GFR [...] % (Auto) 72.7, Lymph % (Auto) 16.1, [place] % (Auto) 8.8, Eos % (Auto) 2.1, Baso % (Auto) 0.3, Neut # (Auto) 5.3, Lymph # (Auto) 1.2, [place] # (Auto) 0.6, Eos# (Auto) 0.2, Baso [...] Neut % (Auto) 66.8, Lymph % (Auto) 21.0,[place] % (Auto) 9.2, Eos % (Auto) 2.6, Baso % (Auto) 0.4, Neut # (Auto) 4.1, Lymph # (Auto) 1.3, [place]# (Auto) 0.6, Eos # (Auto) 0.2, Baso [...] DO Walter Montgomery> 12/13/21 0852 [facility] Work Phone: Progress note Author Priscilla Lang [facility] HospitalNote Date/TimeJanuary 2024 11:02am [place] [address] Hospitalist Progress Note Signed Patient: Taye Gay MR#: [id number] : 1955 Acct:[id number] Age/Sex: 68 / F Adm Date: 4 Loc: 3T Room: [address] [place] [address] Type: ADM IN Attending Dr: Priscilla Lang [...] of dementia, possible Alzheimer's dementia -continue home ctozuvrnt50 mg twice daily and donepezil 20 mg [...] signed by Priscilla Lang MD> 04/29/24 1102 [facility] Work Phone: Progress note Author Lit Clark [facility] HospitalNote Date/TimeJanuary 2024 12:30pm [place] [address] Neurology Progress Note Signed with Jamila Patient: Taye Gay MR#: [id number] : 1955 Acct:[id number] Age/Sex: 68 / F Adm Date: 4 Loc: Room: 7V9304-9 Type: ADM IN Attending Dr: Pricsilla Lang MD Copies to: ~ ADDENDUM1 Patient has refused to remove her nail nepali for MRI. Unable to confirm whether or [...] may be metabolic in nature and not inbound sales representative necessarily of transient ischemia or [...] by Lit Clark DO> 04/30/24 0708 [facility] Work Phone: Refssm for referral (narrative)No reason for referral information availableOhiohealth Ctr Work Phone: Reason for visit Narrative* Other Medical (Routine) - ClosedSpecialtyDiagnoses / ProceduresReferred By ContactReferred To Contact Neurology Diagnoses Numbness Leg pain, left Leg pain, right Bilateral leg weakness Procedures EMG AND NERVE CONDUCTION STUDY Oz Kincaid MD [address] [place] [address] Phone: tel: fax: Oz Kincaid MD [address] [place] [address] Phone: tel: fax: Referral IDStatusReasonStart DateExpiration DateVisits RequestedVisits [id number] Perform Procedure / [facility] Narrative* Other Medical (Routine) - Closed SpecialtyDiagnoses / ProceduresReferred By ContactReferred To ContactNeurology Diagnoses Arm weakness Numbness Arm pain, right Arm pain, left Procedures EMG AND NERVE CONDUCTION STUDY Oz Kincaid MD [address] [place] [address] Phone: tel: fax: Oz Kincaid MD [address] [address] Phone: tel: fax: Referral IDStatusReasonStart DateExpiration DateVisits RequestedVisits [id number] Perform Procedure / [facility] Healthcare Summary Purpose Family History No [...] December 4:05pm Procedure Findings Note HNO ID: [id number] Author: Phi aidyefri Joaquin Service: Gynecology Oncology Author Type: Physician Type: Brief Op Note Filed: 01/17/2019 7:15 PM Note Text: BRIEF OPERATIVE / PROCEDURE NOTE LOG ID: [id number] SURGERY/PROCEDURE DATE: 01/01/2019 INCISION/PROCEDURE START TIME: 8:11 AM INCISION CLOSE/PROCEDURE END TIME: 8:34 AM SURGEON(S)/PROCEDURALIST(S) AND MASTER PLANNER(S): Surgeon(s) and Role: * Theo Joaquin [...] 01, 2019 TIME: 8:39 AM PAGER/CONTACT #: [id number] Chief Complaint and Reason for Visit Chief Complaint right side pain Low R abd painReason for VisitCholelithiasis Emphysematous cystitis Pyelonephritis Right lateral abdominal pain Chief Complaint g02.97 f17.210 Chief Complaint g02.97 f17.210 Z12.39 Chief Complaint E11.4 Z78.0 Chief Complaint 3 month follow up Reason for Visit BMI 28.0-28.9,adult [id number] Dietary counseling and surveillance Hyperlipidemia Hypertension Insulin long-term use Peripheral neuropathy Type 2 diabetes mellitus Vitamin B 12 deficiency Chief Complaint 3 month follow up PVD FOLLOW UPReason for VisitBMI 28.0-28.9,adult [id number] Dietary counseling and surveillance Hyperlipidemia Hypertension Insulin long-term use Peripheral neuropathy Type 2 diabetes mellitus Vitamin B 12 deficiency Dizziness Hypertension Primary insomnia Type 2 diabetes mellitus Chief Complaint 3 month follow up PVD FOLLOW UP g02.97 f17.210Reason for VisitBMI 28.0-28.9,adult [id number] Dietary counseling and surveillance Hyperlipidemia Hypertension Insulin long-term use Peripheral neuropathy Type 2 diabetes mellitus Vitamin B 12 deficiency Dizziness Hypertension Primary insomnia Type 2 diabetes mellitus PAD (peripheral artery disease) Chief Complaint 3 month follow up PVD FOLLOW UP g02.97 f17.210 E11.9 E78.5 E53.8Reason for VisitBMI 28.0-28.9,adult [id number] Dietary counseling and surveillance Hyperlipidemia Hypertension Insulin long-term use Peripheral neuropathy Type 2 diabetes mellitus Vitamin B 12 deficiency Dizziness Hypertension Primary insomnia Type 2 diabetes mellitus PAD (peripheral artery disease) Chief Complaint PVD FOLLOW UP g02.97 f17.210 E11.9 E78.5 E53.8 Amb Documentation brent on phone chest pains chest painsReason for VisitPAD (peripheral artery disease) BMI 28.0-28.9,adult [id number] Dietary counseling and surveillance Hyperlipidemia Hypertension Peripheral [...] for VisitPAD (peripheral artery disease) BMI 28.0-28.9,adult [id number] Dietary counseling and surveillance Hyperlipidemia Hypertension Peripheral [...] z11.3 e53.1 i70.91 d51.3Reason for VisitBMI 28.0-28.9,adult [id number] Dietary counseling and surveillance Hyperlipidemia Hypertension Peripheral [...] e53.1 i70.91 d51.3 aflutterReason for VisitBMI 28.0-28.9,adult [id number] Dietary counseling and surveillance Hyperlipidemia Hypertension Peripheral [...] aflutter Multiple Falls, ShakyReason for VisitBMI 28.0-28.9,adult [id number] Dietary counseling and surveillance Hyperlipidemia Hypertension Peripheral [...] aflutter Multiple Falls, ShakyReason for VisitBMI 28.0-28.9,adult [id number] Dietary counseling and surveillance Hyperlipidemia Hypertension Peripheral [...] Documentation brent on phoneReason for VisitBMI 28.0-28.9,adult [id number] Dietary counseling and surveillance Hyperlipidemia Hypertension Peripheral [...] Vitamin B 12 deficiency Weakness BMI 28.0-28.9,adult [id number] Dietary counseling and surveillance Hyperlipidemia Hypertension Peripheral neuropathy Type 2 diabetes mellitus Vitamin B 12 deficiency Chief Complaint E11.9 E78.5 E53.8 Amb Documentation brent on phone chest pains chest pains Amb Documentation Hospital follow up g72.9 g62.9 r79.89 g60.9 z11.3 e53.1 i70.91 d51.3 aflutter Multiple Falls, Shaky Amb Documentation brent on phone typical a flutterReason for VisitBMI 28.0-28.9,adult [id number] Dietary counseling and surveillance Hyperlipidemia Hypertension Peripheral [...] Weakness Abnormal thyroid blood test BMI 28.0-28.9,adult [id number] Dietary counseling and surveillance Hyperlipidemia Hypertension Peripheral neuropathy Type 2 diabetes mellitus Vitamin B 12 deficiency Chief Complaint E11.9 E78.5 E53.8 Amb Documentation brent on phone chest pains chest pains Amb Documentation Hospital follow up g72.9 g62.9 r79.89 g60.9 z11.3 e53.1 i70.91 d51.3 aflutter Multiple Falls, Shaky Amb Documentation brent on phone typical a flutter typical a flutter [facility] follow upReason for VisitBMI 28.0-28.9,adult [id number] Dietary counseling and surveillance Hyperlipidemia Hypertension Peripheral [...] Weakness Abnormal thyroid blood test BMI 28.0-28.9,adult [id number] Dietary counseling and surveillance Hyperlipidemia Hypertension Peripheral neuropathy Type 2 diabetes mellitus Vitamin B 12 deficiency Hospital discharge follow-up Hypomagnesemia Chief Complaint E11.9 E78.5 E53.8 Amb Documentation brent on phone chest pains chest pains Amb Documentation Hospital follow up g72.9 g62.9 r79.89 g60.9 z11.3 e53.1 i70.91 d51.3 aflutter Multiple Falls, Shaky Amb Documentation brent on phone typical a flutter typical a flutter [facility] follow up G62.9 G60.9 R79.89 Z11.3 E53.1 I70.31 D51.3Reason for VisitBMI 28.0-28.9,adult [id number] Dietary counseling and surveillance Hyperlipidemia Hypertension Peripheral [...] Weakness Abnormal thyroid blood test BMI 28.0-28.9,adult [id number] Dietary counseling and surveillance Hyperlipidemia Hypertension Peripheral neuropathy Type 2 diabetes mellitus Vitamin B 12 deficiency Hospital discharge follow-up Hypomagnesemia Chief Complaint E11.9 E78.5 E53.8 Amb Documentation brent on phone chest pains chest pains Amb Documentation Hospital follow up g72.9 g62.9 r79.89 g60.9 z11.3 e53.1 i70.91 d51.3 aflutter Multiple Falls, Shaky Amb Documentation rbent on phone typical a flutter typical a flutter [facility] follow up G62.9 G60.9 R79.89 Z11.3 E53.1 I70.31 D51.3 g62.9 r79.89 g60.9 z11.3 e53.1 d51.3Reason for VisitBMI 28.0-28.9,adult [id number] Dietary counseling and surveillance Hyperlipidemia Hypertension Peripheral [...] Weakness Abnormal thyroid blood test BMI 28.0-28.9,adult [id number] Dietary counseling and surveillance Hyperlipidemia Hypertension Peripheral neuropathy Type 2 diabetes mellitus Vitamin B 12 deficiency Hospital discharge follow-up Hypomagnesemia Chief Complaint g72.9 g62.9 r79.89 g 60.9 z11.3 e53.1 i70.91 d51.3 aflutter Multiple Falls, Shaky Amb Documentation brent on phone typical a flutter typical a flutter [facility] follow up G62.9 G60.9 R79.89 Z11.3 E53.1 I70.31 D51.3 g62.9 r79.89 g60.9 z11.3 e53.1 d51.3 M54.17Reason for VisitAmbulatory dysfunction Hypomagnesemia Hypothyroid Type 2 diabetes mellitus with hyperglycemia Vitamin B 12 deficiency Weakness Abnormal thyroid blood test BMI 28.0-28.9,adult [id number] Dietary counseling and surveillance Hyperlipidemia Hypertension Peripheral neuropathy Type 2 diabetes mellitus Vitamin B 12 deficiency Hospital discharge follow-up Hypomagnesemia Chief Complaint g72.9 g62.9 r79.89 g 60.9 z11.3 e53.1 i70.91 d51.3 aflutter Multiple Falls, Shaky Amb Documentation brent on phone typical a flutter typical a flutter [facility] follow up G62.9 G60.9 R79.89 Z11.3 E53.1 I70.31 D51.3 g62.9 r79.89 g60.9 z11.3 e53.1 d51.3 M54.17 R60.0 M79.671 r/o dvtReason for VisitAmbulatory dysfunction Hypomagnesemia Hypothyroid Type 2 diabetes mellitus with hyperglycemia Vitamin B 12 deficiency Weakness Abnormal thyroid blood test BMI 28.0-28.9,adult [id number] Dietary counseling and surveillance Hyperlipidemia Hypertension Peripheral neuropathy Type 2 diabetes mellitus Vitamin B 12 deficiency Hospital discharge follow-up Hypomagnesemia Chief Complaint g72.9 g62.9 r79.89 g 60.9 z11.3 e53.1 i70.91 d51.3 aflutter Multiple Falls, Shaky Amb Documentation brent on phone typical a flutter typical a flutter [facility] follow up G62.9 G60.9 R79.89 Z11.3 E53.1 I70.31 D51.3 g62.9 r79.89 g60.9 z11.3 e53.1 d51.3 M54.17 R60.0 M79.671 r/o dvt L97.511 L03.115 lumbosacral radiculopathy at c6Zfayfd for VisitAmbulatory dysfunction Hypomagnesemia Hypothyroid Type 2 diabetes mellitus with hyperglycemia Vitamin B 12 deficiency Weakness Abnormal thyroid blood test BMI 28.0-28.9,adult [id number] Dietary counseling and surveillance Hyperlipidemia Hypertension Peripheral neuropathy Type 2 diabetes mellitus Vitamin B 12 deficiency Hospital discharge follow-up Hypomagnesemia Chief Complaint aflutter Multiple Falls, Shaky Amb Documentation brent on phone typical a flutter typical a flutter [facility] follow up G62.9 G60.9 R79.89 Z11.3 E53.1 I70.31 D51.3 g62.9 r79.89 g60.9 z11.3 e53.1 d51.3 M54.17 R60.0 M79.671 r/o dvt L97.511 L03.115 lumbosacral radiculopathy at s1 8 Month F/UReason for VisitAmbulatory dysfunction Hypomagnesemia Hypothyroid Type 2 diabetes mellitus with hyperglycemia Vitamin B 12 deficiency Weakness Abnormal thyroid blood test BMI 28.0-28.9,adult [id number] Dietary counseling and surveillance Hyperlipidemia Hypertension Peripheral [...] 2024 11:14am Dietary counseling and surveillance [facility] 2023 11:14am Hyperlipidemia April 28, 2024 [...] 28, 2024 11:14am Dietary counseling and surveillance [facility] 2023 11:14am Hyperlipidemia April 28, 2024 11:14am Hypertension April 28, 2024 11:14am Peripheral neuropathy April 28 11:14am Type 2 diabetes mellitus April 28, 2024 11:14am Vitamin B 12 deficiency April 28 024 11:14am Atrial fibrillation April 28, 2024 10:38pm Generalized weakness April 28, 2024 10:38pm Insulin dependent diabetes mellitus [facility] 2023 10:38pm TIA (transient ischemic attack) April 28, 2024 10:38pm Chief Complaint Admit Date Screening, Dysphagia February 14, 2024 12:30pm NEW elevated WBC April 14, 2024 9:30am irregular heart beat, dizziness, weaknes s April 27, 2024 2:18pm Follow Up 2 Weeks April 28, 2024 9:53am brent on phone April 28, 2024 11:14am Weakness April 28, 2024 10:38pm [facility] FOLLOW UP May 07 1:02pm Reason for Visit Admit Date High granulocyte count April 14 9:30am Secondary polycythemia April 14 9:30am High granulocyte count April 28 9:53am Secondary polycythemia April 28 9:53am BMI 32.0-32.9,adult April 28, 2024 11:14am Chronic kidney disease (CKD) stage G2/A2, mildly decreased glomerular filtr April 28, 2024 11:14am Dietary counseling and surveillance [facility] 2023 11:14am Hyperlipidemia April 28, 2024 11:14am Hypertension April 28, 2024 11:14am Peripheral neuropathy April 28 11:14am Type 2 diabetes mellitus April 28, 2024 11:14am Vitamin B 12 deficiency April 28, 024 11:14am Atrial fibrillation April 28, 2024 10:38pm Generalized weakness April 28, 2024 10:38pm Insulin dependent diabetes mellitus [facility] 2023 10:38pm TIA (transient ischemic attack) April 28, 2024 10:38pm Cigarette nicotine dependence April 1:02pm Chief Complaint Admit Date NEW elevated WBC April 14, 2024 9:30am irregular heart beat, dizziness, weaknes s April 27, 2024 2:18pm Follow Up 2 Weeks April 28, 2024 9:53am brent on phone April 28, 2024 11:14am Weakness April 28, 2024 10:38pm [facility]LLOW [facility] May 07 1:02pm G45.9 [...] 2024 11:14am Dietary counseling and surveillance [facility] 2023 11:14am Hyperlipidemia April 28, 2024 11:14am Hypertension April 28, 2024 11:14am Peripheral neuropathy April 28 11:14am Type 2 diabetes mellitus April 28, 2024 11:14am Vitamin B 12 deficiency April 28, 2 024 11:14am Atrial fibrillation April 28, 2024 10:38pm Generalized weakness April 28, 2024 10:38pm Insulin dependent diabetes mellitus [facility] 2023 10:38pm TIA (transient ischemic attack) [...] 2024 11:14am Weakness April 28, 2024 10:38pm [facility] FOLLOW UP May 07 1:02pm G45.9 [...] 2024 11:14am Weakness April 28, 2024 10:38pm [facility] FOLLOW [facility] May 07 1:02pm G45.9 [...] 2024 11:14am Weakness April 28, 2024 10:38pm [facility] FOLLOW UP May 07 1:02pm G45.9 [...] 2024 11:14am Dietary counseling and surveillance [facility] 2023 11:14am Hyperlipidemia April 28, 2024 11:14am Hypertension April 28, 2024 11:14am Peripheral neuropathy April 28 11:14am Type 2 diabetes mellitus April 28, 2024 11:14am Vitamin B 12 deficiency April 28, 2 024 11:14am Atrial fibrillation April 28, 2024 10:38pm Generalized weakness April 28, 2024 10:38pm Insulin dependent diabetes mellitus [facility] 2023 10:38pm TIA (transient ischemic attack) [...] 2024 10:38pm Insulin dependent diabetes mellitus [facility] 2023 10:38pm TIA (transient ischemic attack) [...] ECG 12 Lead Jonas Ch MD [address] [place] [address] Ref[facility] DateExpiration DateVisits RequestedVisits [id number]/17/20247/17/[id number] / Procedures Referred By ContactReferred To Contact Diagnoses Typical atrial flutter (Multi) Procedures Complete Pulmonary Function Test (Spirometry/DLCO/Lung Volumes) Jonas Ch MD [address] [place] [address] Referral IDStatusJohn[facility] DateExpiration DateVisits RequestedVisits [id number] [id number] / ProceduresReferred By ContactReferred To ContactRadiology Diagnoses Typical atrial flutter (Multi) Procedures XR chest 2 views Jonas Ch MD [address] [facility] 2, [place] [address] [place] [address] Referral IDStatusReasonStvandalia DateExpiration DateVisits RequestedVisits [id number] Perform Procedure [id number] / ProceduresReferred By ContactReferred To ContactCardiology Diagnoses Nonischemic cardiomyopathy (Multi) Procedures Follow Up In Cardiology Jonas Ch MD [address] [place] [address] [facility] 2, [place] [address] [place] [address] Roland Faust MD [address] [place] [address] 2, [address] [address] Referral IDStatusReasonOtis DateExpiration DateVisits RequestedVisits [id number]/17/20247/[id number] / Procedures Referred By ContactReferred To ContactCardiology Diagnoses Typical atrial flutter (Multi) Procedures Cardioversion External Jonas Ch MD [address] [place] [address] 2, [place] [address] [place] [address] Referral IDStatusJohn[facility] DateExpiration DateVisits RequestedVisits [id number] [id number] / ProceduresReferred By ContactReferred To ContactCardiology Diagnoses Typical atrial flutter (Multi) Procedures Follow Up In Cardiology Jonas Ch MD [address] [place] [address] [facility] 2, [place] [address] [place] [address] Jonas Ch MD [address] [place] [address] 2, [place] [address] [place] [address] Referral IDStatusReasonStart DateExpiration DateVisits RequestedVisits [id number]/10/20246/10/202511 Reason LEFT FOOT INJURY Diagnosis 1 Type 2 diabetes ye itus with hyperglycemia (E11.65) Diagnosis 2 Injury of foot, left (S99.923F) Referral Organization [facility] Referring Provider First Name Angelique Referring Provider Last Name Yvonne Referring Provider Specialty Nurse Pract itioner Referred Organization [facility] Referred Provider Karl Fritz Referred Address ,[place], [place],[address] Referred Provider Specialty Podiatry - S urgical Chiropody Referral Priority Routine Referral Appointment Date 2023-01-09 General Notes Emerald Doshi 12/28 03:26:20 PM >SCHEDULED FOR 01/09/23 AT 10:15AM. PATIENT INFORMED. Additional Source Comments INFORMATION SOURCE (unrecogn ized section and content) DATE CREATED AUTHOR 10/21/2017 [facility] DATE CREATED AUTHOR AUTHOR'S ORGANIZ ATION 10/22/2017 [facility] DATE CREATED AUTHOR AUTHOR'S ORGANIZ ATION 02/16/2019 [facility] DATE CREATED AUTHOR AUTHOR'S ORGANIZ ATION 02/02/2022 [facility] DATE CREATED AUTHOR AUTHOR'S ORGANIZ ATION 11/16/2024 [facility] DATE CREATED AUTHOR AUTHOR'S ORGANIZ ATION 01/01/2025 [facility] DATE CREATED AUTHOR AUTHOR'S ORGANIZ ATION 02/08/2025 [facility] DATE CREATED AUTHOR AUTHOR'S ORGANIZ ATION 02/11/2025 [facility] DATE CREATED AUTHOR AUTHOR'S ORGANIZ ATION 03/11/2025 [facility] REASON FOR VISIT (unrecogniz ed section and content) ReasonCommentsHospital [facility]/14/23ReasonCommentsPeripheral Neuropathy ReasonCommentsBlood Pressure CheckWith ekgSpecialtyDiagnoses / Procedures Referred By ContactReferred To ContactCardiology Diagnoses Hypertension, unspecified type Procedures Follow Up In Cardiology Roland Faust MD [address] [facility] 2, [address] [address] Phone: tel: fax: Roland Faust MD [address] [place] [address] 2, [address] [address] Phone: tel: fax: Referral IDStatusReasonStvandalia DateExpiration DateVisits RequestedVisits [id number]/11/202411/[id number]-acQPD follow upSpecialtyDiagnoses / ProceduresReferred By ContactReferred To Contact Cardiology Diagnoses Typical atrial flutter (Multi) Procedures Follow Up In Cardiology Jonas Ch MD [address] [place] [address] 2, [place] [phone] Jonas Ch MD [address] [place] [address] 2, [place] [phone] Referral IDStatKind[facility] DateExpiration DateVisits RequestedVisits [id number]/10/20246/[id number]t decline ReasonCommentsFollow-upMedication change, Amio d/cSpecialtyDiagnoses / ProceduresReferred By ContactReferred To ContactCardiology Diagnoses Typical atrial flutter (Multi) Procedures Follow Up In Cardiology Roland Fuast MD [address] [facility] 2, [place] [phone] Roland Faust MD [address] [facility] 2, [place] [phone] Referral IDStatReU[facility] DateExpiration DateVisits RequestedVisits [id number]/1/20248/[id number] / Procedures Referred By ContactReferred To ContactNeurology Diagnoses Carpal tunnel syndrome, bilateral upper limbs Procedures MN INJECTION THERAPEUTIC CARPAL TUNNEL MN KETOROLAC TROMETHAMINE INJ 1 CC STERILE SYRINGE&NEEDLE Oz Kincaid MD [address] [place] [phone] Oz Kincaid MD [address] [place] [phone] Referral IDStatusReasonStart DateExpiration DateVisits RequestedVisits [id number] Perform Procedure /[id number]-lq0 month with EKG. Pt denies c/o at this time.SpecialtyDiagnoses / ProceduresReferred By ContactReferred To Contact Cardiology Diagnoses Nonischemic cardiomyopathy (Multi) Procedures Follow Up In Cardiology Jonas Ch MD Traboulssi, Mourhaf, MD [address] [place] [address], [place] [address] Phone: tel: fax: Referral IDStatusReasonStart DateExpiration DateVisits RequestedVisits [id number] Review/[id number]h declineReasonCommentsMed RefillReasonCommentsFollow-up6 month, nonischemic cardiomyopathySpecialtyDiagnoses / ProceduresReferred By ContactReferred To ContactCardiology Diagnoses Nonischemic cardiomyopathy (Multi) Procedures Follow Up In Cardiology Roland Faust MD [address] [facility] 2, [place] [phone] Phone: tel: fax: Referral IDStatusReasonStart DateExpiration DateVisits RequestedVisits [id number]/28/20252/[id number]zwr Exam Patient present for New patient yearly [...] 2024 End: July 22, 2024Latricia Jacobs , NAPRAPATH-CAttending ProviderActiveStart: July 22, 2024 End: July 22, [...] , MDActiveCaitlin Yao Giang , PA-CActiveTondra Estephania Rusesll , WASH[place]IA ATTENDANT Attending ProviderActive Team Status: Inactive Member Role Status Dates Sandra Keita , DO Primary Care Provider, Attending Franchesca hartley Active Team Status: Inactive Member Role Status Dates Tray Randle , DO Emergency Provider Active Arleen Stephen MDAdmit ProviderActivePasocorro Montgomery , Other ProviderActiveTeresa Strong MDOther ProviderActiveAurora East Hospitalmarkel Vance , MDAttending ProviderActive Jonas Yoder , [facility] Care ProviderActive Team Status: Inactive Member Role [...] DateEnd Date Sandra Keita DO [address] [facility] [place] [address] [address] [facility]09/25/23 Team Status: Active Member Role Status [...] November 10, 2023 End: November 11ko Medina NAPRAPATH-COther ProviderActiveStart: November 10, 2023 End: November 12, [...] Sandra Keita [facility] [address] [facility] [place] [address] PCP - [facility]01/09/23 Team Status: Inactive Member Role Status Dates Sandra Keita DO Primary Care Provide r, Attending Provider Active Start: February 03, 2024 End: February 03, 2024Team MemberRelationshipSpecialtyStart DateEnd Date Sandra Keita DO [address] [facility] [place] [address] [address] [facility]01/09/23Team MemberRelationshipSpecialtyStart DateEnd Date Sandra Keita DO [address] [place] [phone] PCP - GeneralFamily Medicine01/09/23Team MemberRelationshipSpecialtyStart DateEnd Date Sandra Keita DO [address] [place] [phone] PCP - GeneralFamily Medicine01/09/23Team MemberRelationshipSpecialtyStart DateEnd Date Sandra Keita DO [address] [place] [phone] PCP - GeneralFamily Medicine01/09/23Team MemberRelationshipSpecialtyStart DateEnd Date Sandra Keita DO [address] [place] [address] PCP - GeneralFamily Medicine09/25/23Team MemberRelationshipSpecialtyStart DateEnd Date Sandra Keita, [address] [place] [phone] PCP - GeneralFamily Medicine01/09/23Team MemberRelationshipSpecialtyStart DateEnd Date Sandra Keita, DO [address] [place] [phone] PCP - GeneralFamily Medicine01/09/23Team MemberRelationshipSpecialtyStart DateEnd Date Sandra Keita DO [address] [place] [address] PCP - GeneralFamily Medicine01/09/23Team MemberRelationshipSpecialtyStart DateEnd Date Sandra Keita DO [address] [place] [address] PCP - GeneralFamily Medicine09/25/23Team MemberRelationshipSpecialtyStart DateEnd Date Sandra Keita DO [address] [place] [address] PCP - Generalmily Medicine01/09/23Team MemberRelationshipSpecialtyStart DateEnd Date Sandra Keita DO [address] [place] [address] PCP - Generalmily Medicine01/09/23Team MemberRelationshipSpecialtyStart DateEnd Date Sandra Keita DO [address] [place] [address] PCP - Generalmily Medicine09/25/23Team MemberRelationshipSpecialtyStart DateEnd Date Sandra Keita DO [address] [place] [address] PCP - GeneralFamily Medicine01/09/23Team MemberRelationshipSpecialtyStart DateEnd Date Sandra Keita DO [address] [place] [address] PCP - GeneralFamily Medicine01/09/23Team MemberRelationshipSpecialtyStart DateEnd Date Keita, Sandra, DO [address] [place] [address] PCP - GeneralFamily Medicine01/09/23Team MemberRelationshipSpecialtyStart DateEnd Date Keita, Sandra, DO [address] [place] [address] PCP - Generalmily Medicine01/09/23Team MemberRelationshipSpecialtyStart DateEnd Date Keita, Sandra, DO [address] [place] [address] PCP - Generalmily Medicine01/09/23Team MemberRelationshipSpecialtyStart DateEnd Date Keita, Sandra, DO [address] [place] [phone] PCP - GeneralFamily Medicine01/09/23Team MemberRelationshipSpecialtyStart DateEnd Date Keita, Sandra, DO [address] [place] [address] PCP - GeneralFamily Medicine01/09/23Team MemberRelationshipSpecialtyStart DateEnd Date Keita, Sandra, DO [address] [place] [address] PCP - GeneralFamily Medicine01/09/23Team MemberRelationshipSpecialtyStart DateEnd Date Debbie DO Sandra [address] [facility] [facility] [place] [address] P[facility]Jackson [facility] Centerqu[facility]01/09/23 Team Status: Inactive Member Role Status [...] MemberRelationshipSpecialtyStart DateEnd Date Sandra Keita DO [address] [place] [address] P[address] - [facility]09/25/23 Team Status: Inactive Member Role Status Dates Sandra Keita DO Primary Care Provider Active Start: April 28, 2024 End: April 28, 2024Tim Wagner ProviderActive Start: April 28, 2024 End: April 28, 2024Team MemberRelationshipSpecialtyStart DateEnd Date Sandra Keita DO [address] [place] [address] [facility] Team Status: Inactive Member Role Status Dates [...] MemberRelationshipSpecialtyStart DateEnd Date Sandra Keita DO [address] [facility] [place] [address] PCP - GeneralFamily Medicine10/15/24Team MemberRelationshipSpecialtyStart DateEnd Date Sandra Keita DO [address] [facility] [place] [address] PCP - GeneralFamily Medicine10/15/24Team MemberRelationshipSpecialtyStart DateEnd Date Sandra Keita DO [address] [place] [address] P[address] - [facility]10/15/24Team MemberRelationshipSpecialtyStart DateEnd Date Sandra Keita DO [address] [facility] [place] [address] PCP - [facility]10/15/24 Team Status: Inactive Member Role Status [...] Sandra Keita DO [address] [facility] [place] [address] [facility] - [facility]10/15/24Team MemberRelationshipSpecialtyStart DateEnd Date Sandra Keita DO [address] [facility] [place] [address] PCP - [facility]10/15/24 Team Status: Active Member Role Status Dates Shantel Norton APRN NAPRAPATH-C Primary Care Provider Active Team Status: Inactive Member Role Status Dates Shantel Norton APRN NAPRAPATH-C Primary Care Provider Active Start: December 15, 2024 End: December 15, 2024Shantel Norton APRN NAPRAPATH-CAttending ProviderActive Start: December 15, 2024 End: December 15, 2024Team MemberRelationshipSpecialtyStart DateEnd Date Sandra Keita DO [address] [place] [address] [facility]/15/24 Team Status: Inactive Member Role Status Dates Samm Medina MD Attending Provider Active S tart: December 24, 2024 End: December 24, 2024Shantel Norton APRN NAPRAPATH-CPrimary Care ProviderActive Start: December 24, 2024 End: December 24, 2024Team MemberRelationshipSpecialtyStart DateEnd Date Shantel Norton APRN-[employer] [address] [place] [address] PCP - [facility]12/30/24 Team Status: Active Member Role Status Dates Samm Medina MD Attending Provider Active S tart: December 31, 2024 Samm Medina MDOther ProviderActiveStart: December 31, 2024 Shantel Norton APRN NAPRAPATH-CPrimary Care ProviderActiveStart: December 31, 2024 Team Status: Inactive Member Role Status Dates Shantel Norton APRN NAPRAPATH-C Primary Care Provider Active Start: January 052024 End: January 05, 2025Tim Guerrero ProviderActiveStart: January 05, 2025 End: January 05, 2025 Team Status: Inactive Member Role Status Dates Shantel Norton APRN NAPRAPATH-C Primary Care Provider Active Start: December 282024 End: January 12, 2025Shantel Norton APRN NAPRAPATH-CAttending ProviderActive Start: January 12, 2025 End: January 12, 2025Team MemberRelationshipSpecialtyStart DateEnd Date Sandra Keita DO [address] [place] [phone] PCP - [facility]10/15/24Team MemberRelationshipSpecialtyStart DateEnd Date Sandra Keita DO [address] [place] [id number] PCP - [facility]10/15/24 Team Status: Inactive Member Role Status Dates Shantel Norton APRN NAPRAPATH-C Primary Care Provider Active Start: February 02, 2025 End: February 02, 2025Shantel Norton APRN NAPRAPATH-CAttending ProviderActive Start: February 02, 2025 End: February 02, 2025Team MemberRelationshipSpecialtyStart DateEnd Date Sandra Keita DO [address] [place] [address] PCP - [facility]10/15/24Team MemberRelationshipSpecialtyStart DateEnd Date Sandra Keita DO [address] [place] [phone] PCP - [facility]10/15/24Team MemberRelationshipSpecialtyStart DateEnd Date Sandra Keita DO [address] [place] [address] PCP - [facility]6/19/25 Goals (unrecognized section and content) Goals [...] BE BASED ON THE PRIMARY CLINICAL RECORDS. [facility]. provides no warranty or guarantee of the accuracy or completeness of information in this document.
== END 2025-04-07 14:09 | disposition home or self-care (01) ==
LOC: WC 14:08
PROVIDERS: Family Provider Family Medicine; PCP Nurse Practitioner Family; Visit Provider Podiatrist Foot & Ankle Surgery
DX: E11.621 Type 2 diabetes mellitus with foot ulcer (principal); L97.415 Non-pressure chronic ulcer of right heel and midfoot with muscle involvement without evidence of necrosis; L97.412 Non-pressure chronic ulcer of right heel and midfoot with fat layer exposed
CPT/HCPCS: 11043

== ENCOUNTER 2025-04-12 14:42 | Outpatient (OUT) | payer MEDICARE, MEDICAID, SELFPAY | END 2025-04-12 14:43 | disposition home or self-care (01) | LOC: WC 14:42 | PROVIDERS: Family Provider Family Medicine; PCP Nurse Practitioner Family; Visit Provider Podiatrist Foot & Ankle Surgery | DX: E11.621 Type 2 diabetes mellitus with foot ulcer (principal); L97.415 Non-pressure chronic ulcer of right heel and midfoot with muscle involvement without evidence of necrosis; L97.412 Non-pressure chronic ulcer of right heel and midfoot with fat layer exposed | CPT/HCPCS: 11043 ==

== ENCOUNTER 2025-04-19 15:47 | Outpatient (OUT) | payer MEDICARE, MEDICAID, SELFPAY ==
--- OUTSIDE RECORDS SUMMARY | 2020-07-25 10:15 | XMS_ITS | Continuity of Care Document ---
Author Organization [facility] Address [address] [place] [address] Phone Care Team Providers Care Facility Manager Name Role Phone John Morgan Unavailable Unavailable Allergies, Adverse Reactions, Alerts Substance Reaction Status Criticality Sulfa (Sulfonamide Antibiotics) Active No Information Medications Medication Instructions Dosage Effective Dates (start - stop) Status Comments temazepam 30 mg capsule take 1 capsule by oral route every day at bedtime as needed 30 MG - Active lisinopril 10 mg tablet take 1 tablet by oral route every day 10 MG - Active Invokana 300 mg tablet take 1 tablet by oral route every day before the first meal of the day 300 MG - Active Lyrica 150 mg capsule take 1 capsule by oral route 3 times every day 150 MG - Active omeprazole 20 mg capsule,delayed release take 1 capsule by oral route every day before a meal 20 MG - Active simvastatin 20 mg tablet take 1 tablet by oral route every day in the evening 20 MG - Active Vitamin D2 50,000 unit capsule take 1 capsule by oral route every week - Active glimepiride 4 mg tablet take 1 tablet PO BID - Active metformin 500 mg tablet take 1 tablet by oral route 2 times every day with morning and evening meals 500 MG - Active Procedures Procedure Date CHIROPRACTIC MANIPULATION CHIROPRACTIC MANIPULATION CHIROPRACTIC MANIPULATION CHIROPRACTIC MANIPULATION CHIROPRACTIC MANIPULATION CHIROPRACTIC MANIPULATION CHIROPRACTIC MANIPULATION GLYCOSYLATED HEMOGLOBIN TEST OFFICE/OUTPATIENT VISIT, [facility] Advance Directives Directive Yes / No Effective Date File Name No Information Encounters Encounter Description Practice Location Reason(s) For Visit Diagnoses Date Provider Providers Copied on Encounter [facility], [address] [place] [address], [id number] , tel: [phone] [facility] cervical spine (chief complaint) cervical spine (chief complaint) Segmental and somatic dysfunction of cervical regionCervicalgiaSegm ental and somatic dysfunction of lumbar region 9- 1 Eddie Lopez. [address] [place] [address], [id number] , [place]. tel: [phone] [facility], [address] [place] [address], [id number] , tel: [phone] [facility] cervical spine (chief complaint) cervical spine (chief complaint) Segmental and somatic dysfunction of cervical regionCervicalgiaSegm ental and somatic dysfunction of lumbar region 0-201 9 Eddie Lopez. [address] [place] [address], [id number] , [place]. tel: [phone] [facility], [address] [place] [address], [id number] , [place] tel: [phone] [facility] cervical spine (chief complaint) cervical spine (chief complaint) Segmental and somatic dysfunction of cervical regionCervicalgiaSegm ental and somatic dysfunction of lumbar regionLow back pain Jul-0 9-201 9 Eddie Lopez. [address] [place] [address], [id number] , [place]. tel: [phone] [facility], [address] [place] [address], [id number] , [place] tel: [phone] [facility] cervical spine (chief complaint) cervical spine (chief complaint) Segmental and somatic dysfunction of cervical regionCervicalgiaSegm ental and somatic dysfunction of lumbar regionLow back pain 9 Eddie Lopez. [address] [place], [place], [id number] , [place]. tel: [phone] [facility], [address] [place], [place], [id number] , [place] tel: [phone] [facility] cervical spine (chief complaint) cervical spine (chief complaint) Segmental and somatic dysfunction of cervical regionCervicalgiaSegm ental and somatic dysfunction of lumbar regionLow back pain 9 Eddie Lopez. [address] [place], [place], [id number] , [place]. tel: [phone] [facility], [address] [place] [address], [id number] , [place] tel: [phone] [facility] cervical spine (chief complaint) cervical spine (chief complaint) Segmental and somatic dysfunction of cervical regionCervicalgiaSegm ental and somatic dysfunction of lumbar region 8 Eddie Lopez. [address] [place], [place], [id number] , [place]. tel: [phone] [facility], [address] [place] [address], [id number] , [place] tel: [phone] [facility] Spine Care (chief complaint) Segmental and somatic dysfunction of cervical regionCervicalgiaSegm ental and somatic dysfunction of lumbar region 8 Eddie Lopez. [address] [place] [address], [id number] , [place]. tel: [phone] [facility], [address] [place] [address], [id number] , [place] tel: [phone] [facility] Spine Care (chief complaint) Segmental and somatic dysfunction of cervical regionCervicalgiaSegm ental and somatic dysfunction of lumbar region 8 Eddie Lopez. [address], [place], [id number] , [place]. tel: [phone] [facility], [address] [place] [address], [id number] , [place] tel: [phone] [facility] Spine Care (chief complaint) Segmental and somatic dysfunction of cervical regionCervicalgiaSegm ental and somatic dysfunction of lumbar regionOther intervertebral disc degeneration, lumbar region May-0 8 Eddie Lopez. [address], [place], [id number] , [place]. tel: [phone] [facility], [address], [place], [id number] , [place] tel: [phone] [facility] Spine Care (chief complaint) Segmental and somatic dysfunction of lumbar regionLow back painOther intervertebral disc degeneration, lumbar regionSegmental and somatic dysfunction of cervical region Jul-2 0- 8 Eddie Lopez. [address], [place], [id number] , [place]. tel: [phone] [facility], [address] [place] [address], [id number] , [place] tel: [phone] [facility] Spine Care (chief complaint) Segmental and somatic dysfunction of lumbar regionLow back painOther intervertebral disc degeneration, lumbar regionSegmental and somatic dysfunction of cervical region Jun-2 8 Eddie Lopez. [address] [place], [place], [id number] , [place]. tel: [phone] [facility], [address], [place], [id number] , [place] tel: [phone] [facility] Spine Care (chief complaint) Segmental and somatic dysfunction of lumbar regionLow back painOther intervertebral disc degeneration, lumbar regionSegmental and somatic dysfunction of cervical region Jun-2 2- 8 Eddie Lopez. [address] [place], [place], [id number] , [place]. tel: [phone] [facility], [address], [place], [id number] , [place] tel: [phone] [facility] Spine Care (chief complaint) Segmental and somatic dysfunction of lumbar regionLow back painOther intervertebral disc degeneration, lumbar regionSegmental and somatic dysfunction of cervical region Jun- 9- 8 Eddie Lopez. [address], [place], [id number] , [place]. tel: [phone] [facility], [address], [place], [id number] , [place] tel: [phone] [facility] Spine Care (chief complaint) Segmental and somatic dysfunction of lumbar regionLow back painOther intervertebral disc degeneration, lumbar regionSegmental and somatic dysfunction of cervical region Jun-1 5-201 8 Eddie Lopez. [address] [place], [place], [id number] , [place]. tel: [phone] [facility], [address], [place], [id number] , [place] tel: [phone] [facility] Spine Care (chief complaint) Segmental and somatic dysfunction of lumbar regionLow back painOther intervertebral disc degeneration, lumbar regionSegmental and somatic dysfunction of cervical region Jun-1 2-201 8 Eddie Lopez. [address] [place] [address], [id number] , [place]. tel: [phone] [facility], [address], [place], [id number] , [place] tel: [phone] [facility] Spine Care (chief complaint) Segmental and somatic dysfunction of lumbar regionLow back painOther intervertebral disc degeneration, lumbar regionSegmental and somatic dysfunction of cervical region Mar-0 8-201 8 Eddie Lopez. [address], [place], [id number] , [place]. tel: [phone] [facility], [address], [place], [id number] , [place] tel: [phone] [facility] Spine Care (chief complaint) Segmental and somatic dysfunction of lumbar regionLow back painOther intervertebral disc degeneration, lumbar regionSegmental and somatic dysfunction of cervical region Jun-0 5-201 8 Eddie Lopez. [address] [place] [address], [id number] , [place]. tel: [phone] [facility], [address] [place] [address], [id number] , [place] tel: [phone] [facility] Spine Care (chief complaint) Segmental and somatic dysfunction of lumbar regionLow back painOther intervertebral disc degeneration, lumbar regionSegmental and somatic dysfunction of cervical region Mar-0 1- 8 Eddie Lopez. [address] [place], [place], [id number] , [place]. tel: [phone] [facility], [address], [place], [id number] , [place] tel: [phone] [facility] Spine Care (chief complaint) Segmental and somatic dysfunction of lumbar regionLow back painOther intervertebral disc degeneration, lumbar regionSegmental and somatic dysfunction of cervical region Feb-2 6- 8 Eddie Lopez. [address], [place], [id number] , [place]. tel: [phone] [facility], [address] [place] [address], [id number] , [place] tel: [phone] [facility] Spine Care (chief complaint) Segmental and somatic dysfunction of lumbar regionLow back painOther intervertebral disc degeneration, lumbar regionSegmental and somatic dysfunction of cervical region Feb-2 2- 8 Eddie Lopez. [address], [place], [id number] , [place]. tel: [phone] [facility], [address], [place], [id number] , [place] tel: [phone] [facility] Spine Care (chief complaint) Segmental and somatic dysfunction of lumbar regionLow back painOther intervertebral disc degeneration, lumbar regionSegmental and somatic dysfunction of cervical region Feb-2 0- 8 Eddie Lopez. [address], [place], [id number] , [place]. tel: [phone] [facility], [address], [place], [id number] , [place] tel: [phone] [facility] No Information Yan- 7 Eber Ramos. [address], [place], [id number] , [place]. tel: [phone] [facility], [address] [place] [address], [id number] , [place] tel:[phone] [facility] No Information 7 Eber Ramos. [address], [place], [id number] , [place]. tel: [phone] OFFICE/OUTPA TIENT VISIT, [facility], [address], [place], [id number] , [place] tel: [phone] [facility] est care (chief complaint) medication refill (chief complaint) Type 2 diabetes mellitus with hyperglycemiaType 2 DM with diabetic neuropathyInsomnia 7 Eber Ramos. [address] [place] [address], [id number] , [place]. tel: [phone] Family History Family Member Type Diagnosis Age At Onset Sister Problem (finding) Mental illness Mother Problem (finding) Diabetes mellitus Mother Problem (finding) Alive and well Mother Problem (finding) hypertension Sister Problem (finding) Diabetes mellitus Mother Problem (finding) depression Father Problem (finding) stroke Sister Problem (finding) hypertension Father Problem (finding) Cardiovascular disease Mother Problem (finding) hypercholesterolemia Mother Problem (finding) Cardiovascular disease Sister Problem (finding) depression Payers Payer name Insurance type Covered green party ID Authoriza tion(s) No Information Social History Type Description Quantity Date Captured Comments Alcohol Use Details Unknown Caffeine Use Details Unknown Tobacco Use Status Smoking Status No Information Sex Female Sexual Orientation Straight or heterosexual Apr Gender Identity Female Chief Complaint And Reason For Visit From encounter dated '07/25/2020 15:15'. cervical spine (chief complaint) cervical spine (chief complaint). Description: Pt reports soreness in neck along with dizziness forlast several weeks. Reason For Referral Reason For Referral No Information Plan Of Treatment Date Type Action Status Goal Foot exam. Due on due Goal Lipid panel. Due on 021 due Goal Dilated eye exam. Due on Jun due Goal Urine microalbumin. Due on M due Goal Dental exam. Due on due Goal Pneumococcal vaccine. Due on due Goal Hemoglobin A1C. Due on due Goal Foot exam. Due on 9 due Goal Urine microalbumin. Due on due Goal Dilated eye exam. Due on Jan due Goal Pneumococcal vaccine. Due on due Goal Dental exam. Due on due Goal Hemoglobin A1C. Due on due Goal Lipid panel. Due on due Goal Hemoglobin A1C. Due on due Goal Urine microalbumin. Due on A due Goal Lipid panel. Due on due Goal Pneumococcal vaccine. Due on due Goal Dilated eye exam. Due on Jul due Goal Dental exam. Due on due Goal Foot exam. Due on 9 due Goal Dilated eye exam. Due on Jun due Goal Lipid panel. Due on due Goal Hemoglobin A1C. Due on due Goal Dental exam. Due on due Goal Urine microalbumin. Due on due Goal Foot exam. Due on 9 due Goal Pneumococcal vaccine. Due on due Goal Dilated eye exam. Due on Jun due Goal Urine microalbumin. Due on due Goal Hemoglobin A1C. Due on due Goal Pneumococcal vaccine. Due on due Goal Foot exam. Due on 9 due Goal Lipid panel. Due on due Goal Dental exam. Due on due Goal Urine microalbumin. Due on due Goal Pneumococcal vaccine. Due on due Goal Foot exam. Due on 8 due Goal Dental exam. Due on due Goal Dilated eye exam. Due on Jan due Goal Hemoglobin A1C. Due on due Goal Lipid panel. Due on due Goal Dental exam. Due on due Goal Urine microalbumin. Due on due Goal Pneumococcal vaccine. Due on due Goal Hemoglobin A1C. Due on due Goal Foot exam. Due on due Goal Dilated eye exam. Due on Sep due Goal Lipid panel. Due on due Goal Urine microalbumin. Due on due Goal Dental exam. Due on due Goal Hemoglobin A1C. Due on due Goal Lipid panel. Due on due Goal Dilated eye exam. Due on August due Goal Pneumococcal vaccine. Due on due Goal Foot exam. Due on 8 due Goal Foot exam. Due on due Goal Hemoglobin A1C. Due on due Goal Lipid panel. Due on due Goal Dilated eye exam. Due on August due Goal Dental exam. Due on due Goal Urine microalbumin. Due on M due Goal Pneumococcal vaccine. Due on due Goal Urine microalbumin. Due on A due Goal Dental exam. Due on due Goal Lipid panel. Due on due Goal Foot exam. Due on due Goal Pneumococcal vaccine. Due on due Goal Dilated eye exam. Due on Jul due Goal Foot exam. Due on due Goal Lipid panel. Due on due Goal Urine microalbumin. Due on due Goal Dental exam. Due on due Goal Dilated eye exam. Due on Jun due Goal Pneumococcal vaccine. Due on due Goal Urine microalbumin. Due on due Goal Lipid panel. Due on due Goal Dilated eye exam. Due on Jun due Goal Pneumococcal vaccine. Due on due Goal Foot exam. Due on 8 due Goal Dental exam. Due on due Goal Lipid panel. Due on due Goal Urine microalbumin. Due on due Goal Dental exam. Due on due Goal Foot exam. Due on due Goal Pneumococcal vaccine. Due on due Goal Dilated eye exam. Due on Jun due Goal Dental exam. Due on due Goal Foot exam. Due on due Goal Pneumococcal vaccine. Due on due Goal Lipid panel. Due on due Goal Dilated eye exam. Due on Jun due Goal Urine microalbumin. Due on due Goal Dental exam. Due on due Goal Lipid panel. Due on due Goal Foot exam. Due on due Goal Dilated eye exam. Due on Jun due Goal Urine microalbumin. Due on due Goal Pneumococcal vaccine. Due on due Goal Dilated eye exam. Due on Jun due Goal Pneumococcal vaccine. Due on due Goal Foot exam. Due on due Goal Urine microalbumin. Due on due Goal Dental exam. Due on due Goal Lipid panel. Due on due Goal Dilated eye exam. Due on Jun due Goal Urine microalbumin. Due on due Goal Dental exam. Due on due Goal Pneumococcal vaccine. Due on due Goal Foot exam. Due on due Goal Lipid panel. Due on due Goal Foot exam. Due on due Goal Dilated eye exam. Due on Jun due Goal Dental exam. Due on due Goal Lipid panel. Due on due Goal Pneumococcal vaccine. Due on due Goal Urine microalbumin. Due on due Goal Urine microalbumin. Due on due Goal Lipid panel. Due on due Goal Foot exam. Due on 8 due Goal Pneumococcal vaccine. Due on due Goal Dilated eye exam. Due on May due Goal Dental exam. Due on due Goal Dilated eye exam. Due on May due Goal Pneumococcal vaccine. Due on due Goal Lipid panel. Due on due Goal Foot exam. Due on due Goal Dental exam. Due on due Goal Urine microalbumin. Due on due Goal Lipid panel. Due on due Goal Foot exam. Due on due Goal Pneumococcal vaccine. Due on due Goal Dilated eye exam. Due on May due Goal Dental exam. Due on due Goal Hemoglobin A1C. Due on due Goal Urine microalbumin. Due on due Goal Urine microalbumin. Due on due Goal Dental exam. Due on due Goal Lipid panel. Due on due Goal Dilated eye exam. Due on Sep due Goal Foot exam. Due on 7 due Goal Pneumococcal vaccine. Due on due Goal Urine microalbumin. Due on due Goal Dilated eye exam. Due on Sep due Goal Foot exam. Due on 7 due Goal Lipid panel. Due on 017 due Goal Dental exam. Due on 017 due Goal Pneumococcal vaccine. Due on due Goal Tobacco cessation counseling completed Goal Tobacco cessation counseling completed History Of Present Illness Encounter Date Complaint History Of Prese nt Illness cervical spine cervical spine Pt reports toni ess in neck along with dizziness for last several weeks. cervical spine cervical spine Pt reports recur rence of neck and upper back stiffness/soreness. cervical spine cervical spine Pt reports neck and low back stiff/achy. cervical spine cervical spine Pt reports feeli ng a little better this week but still sore in neck and low back. cervical spine cervical spine pt reports flare up of neck and low back pain. No trauma. Sx results of ADL's. cervical spine cervical spine Reports neck sti ffness and tension headaches lately. Spine Care Pt reports feeli ng better but still some soreness in neck/upper back. Spine Care Reports soreness /stiffness in neck. Spine Care Reports feeling stiff/sore in neck on left. Spine Care Had carpal tunne l surgery 3 weeks ago. Feeling sore in neck and low back. Spine Care Reports soreness all over due to rainy weather. Spine [facility] Overall doing be tter but sore in shoulders today. Reducing fq to 1x/week. Spine Care Pt reports toni ess in neck and low back this weekend after helping put a desk together. Spine Care Reports feeling stiff and sore in neck today. Spine Care Pt reports doing a lot of cleaning over the weekend so feeling sore in low back today. Spine Care Reports neck fee ling more mobile but low back still painful at times. Spine Care Pt reports toni ess in low back today. Spine Care Pt reports neck starting to move easier. Still sore in low back. Spine Care Reports soreness in low back. Neck beginning to move easier. Spine Care Reports improvem ent in neck for a couple of days after last visit but symptoms have returned. Spine Care C/O Chronic low back pain, acute flare up in last week. Reports worse on right but spreading across low back.Sx are the result of regular ADL'S. Pain is primarily at L3-L5 PVM on the Rt. and extends to the SI joint, Rt. Pain is local, dull, and without radiation to the lower extremities. No sensory or motor changes noted. No loss of bowel or bladder function or retention. Symptoms present with a pain scale of 9 (VAS = 1-10). Pain interferes with regular ADL's. Increase in pain with movement/ROM and ADL'S. Some decrease in symptoms with rest. No change in the pain pattern from the onset of symptoms. Pain pattern is as prior times. Patient also presents with chronic neck pain that's been present on/off for years.No specific injury or trauma is noted. Pain primarily at the cervicobrachial area.Pain is local, dull, and without radiation to the upper extremities. Pain interferes with regular ADL's. Increase in pain with movement/ROM and ADL'S. Some decrease in Sx with rest. No change in the pain pattern from the onset of Sx. medication refill Patient states she has been out of her Invokana for approx 2 weeks now. Patient states she is going to run out of her other medications in a few weeks also. -Kely DE LA ROSA est care Patient here to establish care, she recently moved back to [place] from [place]. She is here taking care of her mother. She was seeing Sadie Fritz AURICULAR DETOXIFICATION SPECIALIST in [place], states she just had blood work done beginning of June before moving here. A1C today 9.0. Patient states she does not currently have insurance since moving here from [place] and was unable to get her medications d/t cost. Patient has started working but is unable to afford insurance provided by her job. She thinks she will be getting insurance in approx 3 months. -Kely DE LA ROSA Functional Status Date Functional Assessmen t No Information Instructions Date Instruction Additional Infor tam No Information Assessments Type Assessment Date assessment Segmental and somatic dysfunctio n of cervical region assessment Cervicalgia assessment Segmental and somatic dysfunctio n of lumbar region impression Patient Care Teams Name Effective Dates (start - stop) Status Members No Information
--- OUTSIDE RECORDS SUMMARY | 2025-04-09 12:20 | XMS_ITS | Encounter Summary ---
Author Organization [facility] Address [address] [place], [place] [id number] Care Team Providers Care Scientific Informatics Analyst Name Role Phone Shantel Norton Rebecca DIRECTOR LIFE Primary Care Provider Source Comments In the event this information is protected by the Federal Confidentiality of Alcohol and Drug AbusePatient Records regulations: The Federal rules restrict any use of the information to criminally investigate or prosecute any alcohol or drug abuse patient.[facility] Reason for Visit * ReasonCommentsAnesthesia Consult Encounter Details DateTypeDepartmentCare Team (Latest Contact Info)Wykrvdxyghb77/12/2025 12:20 PM ESTPAT Pre Anesthesia [address] [place] [address] 1, Pacc [place] [address] [place] [address] Pre-op evaluation (Primary Dx); Hypercholesteremia; Primary hypertension; Gastroesophageal reflux disease, unspecified whether esophagitis present; Atrial flutter, unspecified type (HCC); MCI (mild cognitive impairment); BOSTON (obstructive sleep apnea); Anxiety and depression; Type 2 diabetes mellitus with other specified complication, unspecified whether terminal clerk insulin use ([facility]); Smoker; Diabetic ulcer of right foot associated with type 2 diabetes mellitus, unspecified part of foot, unspecified ulcer stage ([facility]) Social History Tobacco UseTypesPacks/DayYears UsedDateSmoking Tobacco: Every LbrNgphgvpoeq533 Started: 1972Smokeless Tobacco: NeverAlcohol UseStandard Drinks/WeekCommentsNot Currently0 (1 standard drink = 0.6 oz pure alcohol)Area Deprivation IndexAnswer Date RecordedNational Score (1-100), lower number is lower mxtj224103/10/2025State Score (1-10), lower number is lower xmgc81605/10/2024Data from: https://www.neighborhoodatlas.[facility]/. Last address used for hnvwihbcqyl300 [facility]03/10/2025CommentsNoSex and Gender InformationValueDate RecordedSex Assigned at BirthNot on fileLegal SexFemale 03/30/2012 10:19 AM ESTGender IdentityNot on fileSexual OrientationNot on file documented as of this encounter Last Filed Vital Signs Vital SignReadingTime TakenCommentsBlood Xrwidlwa21/5804/09/2025 12:22 PM EST Vxrfi584304/09/2025 12:22 PM GWYLfpcmkhdokx71.7 ??C (98.1 ??F)04/09/2025 12:22 PM ESTRespiratory Rafs918506/10/2024 12:22 PM ESTOxygen Cqqibvtqxc22%04/09/2025 12:22 PM ESTInhaled Oxygen Concentration--Kvpzol01 kg (189 lb 9.5 oz)04/09/2025 12:22 PM RFELjqsad116.2 cm (5' 7 )04/09/2025 12:22 PM ESTBody Mass Index29.69 04/09/2025 12:22 PM ESTdocumented in this encounter Patient Instructions * Patient Instructions* Reyna Smart APRN.BEDSPRING ASSEMBLER - 04/08/2025 11:00 AM EST PATIENT PREOPERATIVE INSTRUCTIONS You Surgeon has scheduled you for your procedure at this surgery center: [facility]: [phone] --[address] [place] [address]. Please check in on the1st floor at [...] Procedures: - YOU MUST HAVE A RESPONSIBLE KOSHER SEALER TAKE YOU HOME. A CLAIMS SUPERVISOR OR MOLDER APPRENTICE CANNOT BE MADE A RESPONSIBLE KOSHER SEALER. - We recommend that a responsible person [...] Advance Directive, please fax a copy to [phone] or email to for it to be [...] and depression Assessment: Controlled with SSRI Diabetes ([facility]) Assessment: Complaint with oral medication, GLP 1, [...] activity. STOP-Bang Score: STOP-Bang Score: 0 (+BOSTON) [id number] Score: Age: 65-74 Sex: female CHF history: Yes Hypertension history: Yes Stroke/TIA/thromboembolism history: No Vascular disease history: No Diabetes history: Yes [id number] Score: 5 ARISCAT Score: Age: 51-80 Preoperative [...] Yes EPINEPHrine (EPIPEN) 0.3 mg/0.3 mL auto-injector [id number] 0.3 ml EPINEPHrine 1 mg/ml auto-injector (5 [...] or problems. +BOSTON Cardiovascular: Negative for Recent [place], Angina, Chest Pain, PVD, DVT/PE +HTN +HLD +Aflutter s/p cardioversion GI: Negative for Nausea, Vomiting, Abdominal pain +GERD : Negative for dysuria, incontinence, hematuria, and hesitancy HAND TURNER: +See HPI : Denies, No LMP recorded. [...] 414 QTC Calculation (Bazett) 447 Calculated P [place] 53 Calculated R [place] 21 Calculated T [place] 33 Impression NORMAL SINUS RHYTHM NORMAL ECG [...] Plan of Treatment DateTypeDepartmentCare Team (Latest Contact Info)Hslglzkzkye09/14/2026 11:45 AM ESTVisit (SP) Office Gynecology Oncology [address] [place] [address] [place] [address] Milly Cordoba MD [address] [place] [address] post opdocumented as of this encounter Results * (ABNORMAL) HEMOGLOBIN A1C (04/09/2025 1:32 PM EST)ComponentValueRef RangeTest MethodAnalysis TimePerformed AtPathologist SignatureHemoglobin A1C8.4(H)4.3 - 5.6 %04/11/2025 8:54 AM [facility] MA[facility] LABComment:[place] Diabetes Association guidelines indicate that patients with HgbA1c in the range 5.7- 6.4% are at increased risk for development of diabetes, and intervention by lifestyle modification may be beneficial. HgbA1c greater or equal to 6.5% is considered diagnostic of diabetes.Estimated Average Nbxwlee289zr/dL04/11/2025 8:54 AM [facility] MAIN LABComment:eAG: (Estimated average glucose) is a calculated value from HgbA1c and is sales representative malt liquors of the average blood glucose level in the last 2-3 month period.Specimen (Source)Anatomical Location / LateralityCollection Method / VolumeCollection TimeReceived Time BloodBLOOD SPECIMEN / UnknownVenipuncture / Lnijyhv3204/09/2025 1:32 PM EST 04/09/2025 1:33 PM EST Narrative Authorizing ProviderResult TypeResult StatusReyna Smart APRN.CNPLABORATORY Final ResultPerforming OrganizationAddressCity/State/ZIP CodePhone Number [facility] [address] documented in this encounter Visit Diagnoses [...] mellitus with other specified complication, unspecified whether fpc insulin use (HCC) Smoker Tobacco use disorder Diabetic ulcer of right foot associated with type 2 diabetes mellitus, unspecified part of foot, unspecified ulcer stage (HCC) * Assessment & Plan Note - Reyna Smart APRN.BEDSPRING ASSEMBLER - 04/09/2025 1:14 PM EST Associated Problem(s): [...] DateEnd Date Shantel Norton NP [address] [place] [address] PCP - GeneralFamily Mxefdcxg87/24/25documented as of this encounter
--- OUTSIDE RECORDS SUMMARY | 2025-04-09 13:07 | XMS_ITS | Encounter Summary ---
Author Organization [facility] Address [address] [place] [address] Care Team Providers Care Production Administrator Name Role Phone Shantel Norton Rebecca CHIEF ENVIRONMENTAL COMMITMENT OFFICER Primary Care Provider Source Comments In the event this information is protected by the Federal Confidentiality of Alcohol and Drug AbusePatient Records regulations: The Federal rules restrict any use of the information to criminally investigate or prosecute any alcohol or drug abuse patient.[facility] Encounter Details DateTypeDepartmentCare Team (Latest Contact Info)Wpvhnjpscin56/12/2025 1:07 PM EST - 04/09/2025 11:59 PM ESTHospital Encounter Radiology [address] [place], [place] [address] 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 Last address used for ftfqgfduphp186 [facility]03/10/2025CommentsNoSex and Gender InformationValueDate RecordedSex Assigned at BirthNot on fileLegal SexFemale 03/30/2012 10:19 AM ESTGender IdentityNot on fileSexual OrientationNot on file documented as of this encounter Medications at Time of Discharge MedicationSigDispense QuantityRefillsLast FilledStart DateEnd Date apixaban (ELIQUIS) 5 mg tab(s) .XOSPCJP1210/11/2023 carvedilol (COREG) 12.5 mg tablet Take 12.5 mg by mouth./ donepezil (ARICEPT) 10 mg tablet Take 20 mg by mouth every morning. JARDIANCE 25 mg tablet Take 25 mg by mouth once daily. EPINEPHrine (EPIPEN) 0.3 mg/0.3 mL auto-injector [id number] 0.3 ml EPINEPHrine 1 mg/ml auto-injector (5 sources) alpha-Adrenergic Agonist, beta-Adrenergic Agonist, Catecholamine Start: FREESTYLE JUDY 14 DAY SENSOR kit 04/08/2025 furosemide (LASIX) 20 mg tablet Take by mouth.05/07/2024 NILA BARBOSA U-300 INSULIN 300 unit/mL (1.5 mL) INJECT 23 UNITS SUBCUTANEOUSLY EVERY MORNING magnesium oxide (MAG-OX) 400 mg (241.3 mg magnesium) tablet Take 1 tablet by mouth every 12 hours.02/28/2025 ketoconazole (NIZORAL) 2 % shampoo ketoconazole 20 mg/ml medicated shampoo (2 sources) Azole Antifungal Start: tacrolimus (PROTOPIC) 0.1 % ointment APPLY TO AFFECTED AREAS ON FACE TWICE DAILY UNTIL CLEAR .01/11/2025 traMADol (ULTRAM) 50 mg tablet Take 50 mg by mouth two times a day as needed for pain. sertraline (ZOLOFT) 50 mg tablet Take 50 mg by mouth.01/12/2025 semaglutide (OZEMPIC) 1 mg/dose (4 mg/3 mL) pen Inject 1 mg subcutaneously one time a week.03/27/2021 pregabalin (LYRICA) 300 mg capsule Take 300 mg by mouth two times a day. memantine (NAMENDA) 10 mg tablet Take 10 mg by mouth two times a day.07/03/2024 polyethylene glycol 3350 (MIRALAX) 17 gram/dose powder Take 17 g by mouth once daily. 235 g 01/07/2019 docusate sodium (COLACE) 100 mg capsule Take 1 capsule by mouth twice daily. 60 capsule ibuprofen (MOTRIN) 600 mg tablet Take 1 tablet by mouth every 6 hours as needed for Pain. 60 tablet acetaminophen (TYLENOL) 325 mg tablet Take 2 tablets by mouth every 4 hours as needed for Pain. 60 tablet insulin lispro sliding scale 1 (HUMALOG) Inject 1-5 Units subcutaneously w MEALS.12/17/2018 cyanocobalamin (VITAMIN B-12) 1,000 mcg tab 1,000 mcg once daily. folic acid 1 mg tablet Take 1 mg by mouth once daily. metFORMIN (GLUCOPHAGE) 500 mg tablet Take 500 mg by mouth twice daily with meals. metoclopramide HCl (REGLAN) 10 mg tablet Take 10 mg by mouth four times daily. nortriptyline (PAMELOR) 50 mg capsule Take 50 mg by mouth daily at bedtime. omeprazole (PRILOSEC) 20 mg capsule Take 20 mg by mouth once daily. pioglitazone (ACTOS) 15 mg tablet Take 15 mg by mouth once daily. simvastatin (ZOCOR) 20 mg tablet Take 20 mg by mouth daily at bedtime. temazepam (RESTORIL) 30 mg cap Take 30 mg by mouth at bedtime as needed. terconazole (TERAZOL 7) 0.4 % vaginal cream insert 1 applicatorful vaginally once daily for 7 srfn592documented as of this encounter Plan of Treatment DateTypeDepartmentCare Team (Latest Contact Info)Baxiisjezlo51/14/2026 11:45 AM ESTVisit (SP) Office Gynecology Oncology [address] [place] [address] [place] [address] Milly Cordoba MD [address] [place] [address] post opdocumented as of this encounter Procedures Procedure NamePriorityDate/TimeAssociated DiagnosisCommentsXR CHEST 2V FRONTAL/GTWDdrnqgr00/12/2025 1:35 PM EST HPV in female Pre-op testing documented in this encounter Results * XR CHEST 2V FRONTAL/LAT (04/09/2025 1:35 PM EST)Anatomical RegionLaterality ModalityChestOtherSpecimen (Source)Anatomical Location / LateralityCollection Method / VolumeCollection TimeReceived Time04/09/2025 1:35 PM EST Impressions 04/12/2025 7:51 AM EST IMPRESSION: No acute cardiopulmonary process. Cold Patcher: DANK ?? Transcribe Date/Time: Apr 12 2025 ??7:43A Dictated by : VIRAL PENNY MD This examination was interpreted and the report reviewed and electronically signed by: VIRAL PENNY MD on Apr 12 2025 ??7:49AM ??EST Narrative 04/12/2025 7:51 AM EST * * *Final Report* * * DATE OF EXAM: Apr 09 2025 ??1:35PM ?? LNX ?? [id number] ??- ??XR CHEST 2V FRONTAL/LAT ??/ PROCEDURE REASON: multiple diagnoses ? * * * * Physician Interpretation * * * * FRONTAL AND LATERAL CHEST RADIOGRAPHS HISTORY: HPV in female Pre-op testing ??. TECHNIQUE: Frontal and lateral views of the chest were obtained. COMPARISON: No available comparisons. RESULT: Cardiomediastinal silhouette is normal. ??No consolidative opacity. No pleural effusion or pneumothorax. ??Pulmonary vasculature is unremarkable. Procedure Note Provider, [facility] - 04/12/2025 * * *Final Report* * * DATE OF EXAM: Apr 09 2025 1:35PM LNX [id number] - XR CHEST 2V FRONTAL/LAT / PROCEDURE REASON: multiple diagnoses * * * * Physician Interpretation * * * * FRONTAL AND LATERAL CHEST RADIOGRAPHS HISTORY: HPV in female Pre-op testing . TECHNIQUE: Frontal and lateral views of the chest were obtained. COMPARISON: No available comparisons. RESULT: Cardiomediastinal silhouette is normal. No consolidative opacity. No pleural effusion or pneumothorax. Pulmonary vasculature isunremarkable. IMPRESSION IMPRESSION: No acute cardiopulmonary process. 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
--- OUTSIDE RECORDS SUMMARY | 2025-04-16 23:59 | XMS_ITS | Encounter Summary ---
Author Organization [facility] Address [facility] [place] [address] Care Team Providers Care Strategic Debriefing Specialist Name Role Phone Shantel Norton INSTRUCTIONAL TECHNOLOGIST Primary Care Provider Source Comments In the event this information is protected by the Federal Confidentiality of Alcohol and Drug AbusePatient Records regulations: The Federal rules restrict any use of the information to criminally investigate or prosecute any alcohol or drug abuse patient.[facility] Encounter Details DateTypeDepartmentCare Team (Latest Contact Info)Zjnoddjnfzp80/19/2025 11:59 PM ESTAnesthesia Event [facility] Operating Room [address] [place] [address] Alejandra Willis AA Student Anesthesia Record Procedure NameResponsible AnesthesiologistAnesthesia Start TimeAnesthesia Stop TimeVULVECTOMY PARTIAL SIMPLE (Pending: Vulva)Events No events on file. * Meds No medications on file. * Agents No agents on file. * Blood No blood administrations on file. Lines, Drains, and Airways No LDAs on file. documented in this encounter Social History Tobacco UseTypesPacks/DayYears UsedDateSmoking Tobacco: Every ZjlQvvhfztwdb353 Started: 1972Smokeless Tobacco: NeverAlcohol UseStandard Drinks/WeekCommentsNot Currently0 (1 standard drink = 0.6 oz pure alcohol)Area Deprivation IndexAnswer Date RecordedNational Score (1-100), lower number is lower tfwz897303/10/2025State Score (1-10), lower number is lower cltm89205/10/2024Data from: https://www.neighborhoodatlas.medicine.[facility].edu/. Last address used for d[address]03/10/2025CommentsNoSex and Gender InformationValueDate RecordedSex Assigned at BirthNot on fileLegal SexFemale 03/30/2012 10:19 AM ESTGender IdentityNot on fileSexual OrientationNot on file documented as of this encounter Plan of Treatment DateTypeDepartmentCare Team (Latest Contact Info)Yxdhgtugvoj99/14/2026 11:45 AM ESTVisit (SP) Office Gynecology Oncology [address] [place] [address] [place] [address] Milly Cordoba MD [address] [place], [place] [phone] post opdocumented as of this encounter Visit Diagnoses Not on filedocumented in this encounter Care Teams Team MemberRelationshipSpecialtyStart DateEnd Date Shantel Norton NP [address] [place] [address] PCP - GeneralFamily Eirwxegg90/24/25documented as of this encounter
--- OUTSIDE RECORDS SUMMARY | 2025-04-19 15:50 | XMS_ITS | Patient Health Record ---
Author Organization [facility] Address [address] [place] [address] Care Team Providers Care Softball Player Name Role Phone Dr. Edgar aGrcia Primary Care Provider [phone] Reason For Referral No Information Plan Of Treatment No Information Insurance Providers Payer Name Payer Address Payer Phone Subscriber Number Group Number Insured Name Patient Relationship to Insured Coverage Start Date Coverage End Date MEDICARE CGS [address] [place] [address] [id number] PRITI Rm - patient is the [id number] 2020[facility] [address] [place] [id number], CINDYSelf - patient is the [id number] 2020ENTAL MEDICAID [place] [address] [place] [address] [phone], CINDYSelf - patient is the [id number] 2020
--- OUTSIDE RECORDS SUMMARY | 2025-04-19 15:50 | XMS_ITS | Clinical Summary ---
Author Organization [facility] Address [address] [place] [address] Care Team Providers Care Team Sports Sales Associate Name Role Phone Sandra Lewis DO Primary Care Provider [phone] Allergies Active AllergyReactionsCriticalityNoted DateCommentsSulfa AntibioticsGI intolerance,Kczeaod0411/25/2018 Medications MedicationSigDispense QuantityRefillsLast FilledStart DateEnd DateStatus Continuous Blood Gluc Sensor (OddslifeStyle Brent 14 Day Sensor) [facility] apply 1 SENSOR as directed every 14 days use with DEVICE to MONIT... (REFER TO PRESCRIPTION NOTES).12/21/2022ctive Toujeo SoloStar 300 UNIT/ML injection inject 20 units subcutaneously as bmoxdaza21/16/2023ctive Droplet Pen Dandridge 32G X 4 MM misc use 1 PEN NEEDLE to inject MEDICATION subcutaneously five times a day02/19/2022 Active omeprazole (PriLOSEC) [address] capsule 01/02/2023ctive Ozempic, 1 MG/DOSE, 4 MG/3ML solution pen-injector Administer 1mg subcutaneously once fsfpyj7812/10/2022ctive simvastatin (Zocor) 40 MG tablet Take 40 mg by mouth at crjpetz8212/04/2022ctive Jardiance 25 MG take 1 tablet orally [...] 12.5 mg in the evening. Take with meals.03/09/2024ctive donepezil (Aricept) 10 MG tablet Indications:Cognitive decline2 [...] MOUTH TWICE A DAY 180 capsule 5Active Active Problems ProblemNoted DateDiagnosed DateWeakness of both lower ooqanhyzlnp48/10/2025 Overview (10/06/2024): --- multifactorial, including PN G62.9, [...] redo spinal surgery consult. TIA (transient ischemic attack)05/13/20243429Kkuvdgbaaepzna54/10/2024 Assessment & Plan (04/07/2024 2:16 PM EST): Consult haematology. Cognitive lgombkk8702/25/2024 Assessment & Plan (01/19/2025 4:35 PM EDT): (Continue current regimen.) Assessment & Plan (10/06/2024 2:30 PM EDT): (Continue current regimen.) Assessment & Plan (07/21/2024 3:08 PM EDT): (Continue current regimen.) Get [facility] records - neuro consults, EEG, MR, carotids, echo, discharge summary. Assessment & Plan (04/07/2024 2:16 PM EST): Pt to retry donepezil 15 qam (or 10/5). Assessment & Plan (02/25/2024 2:59 PM EDT): Add memantine 10 -> bid. Then add donepezil 10, titrate. Handout. Get MR images transferred to [facility] PACS for my review. 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 Assessment & Plan (01/19/2025 4:35 PM EDT): (Continue avoiding compression.) Assessment & Plan (10/06/2024 2:30 PM EDT): (Continue avoiding compression.) Assessment & Plan (07/21/2024 3:08 PM EDT): (Avoid compression.) Assessment & Plan (04/07/2024 2:16 PM EST): PO bmexakvv41/02/2024 Assessment & Plan (02/25/2024 2:43 PM EDT): Get Dr. Gonzalez's note (2nd request). Assessment & Plan (01/07/2024 1:44 PM EDT): Get rheum note. Assessment & Plan (12/12/2023 2:49 PM EDT): Consult Drs. Vang/Lisa - PO positive, titer increasing, but subtests neg. Known peripheral neuropathy, worsening. Get full set of labs ([facility]). We have some but [...] will need neurosurgery consult. Adverse effect of alpha-vxgjocvwbx24/02/2024Vitamin E /02/2024 Assessment & Plan (11/29/2023 3:06 PM EDT): Add MVI (for Vitamin E). Or if already on MVI, add Vit E separately, 2/week. Chronic low back pain without degbdaur53/10/6074Uvmdquegjti28/10/2024Cervical paraspinal muscle spasm10/29/2023 Assessment & Plan (01/19/2025 [...] to neck as well.) Carpal tunnel syndrome, gztulwvve09/02/2024 Overview (10/06/2024): --- causing hand weakness R29.898. [...] EDT): Restart splint use. ENMG BUE. (2nd) Hqnyywduohjewi79/02/2024 Assessment & Plan (11/29/2023 3:06 PM EDT): Pt reports 2nd PO is high 1:320 but I don't see it in the labs. Let's make sure we get this. May need rheumatology consult. Neuropathy panel II. Assessment & Plan (10/29/2023 3:17 PM EDT): Redo neurop panel. Diabetic peripheral yaccdhkvia85/02/5595Y24 rrbhbdpdum91/02/2024 Assessment & Plan (01/19/2025 4:35 PM EDT): [...] are drawn. Redo B12 panel 8 w. Sewysjjxpoqu49/02/2024Lumbar paraspinal muscle spasm10/29/2023 Assessment & Plan (01/07/2024 [...] 3:18 PM EDT): Myopathy panel. Leg pain, vrelvsyyy91/02/2024 Assessment & Plan (10/29/2023 3:20 PM EDT): XR L-s 6 v. ENMG BLE. (First) Resolved Problems ProblemNoted DateDiagnosed DateResolved DateOSA (obstructive sleep apnea) Encounters DateTypeDepartmentCare QidmBbgbwkdnhnc41/02/2025Refill [facility] [address] [facility] [address] [place] [address] Luan Kincaid MD Neurogenic pain02/18/2025Telephone [facility] [address] [place] [address] Nereida Castro MD Biopsy (Appt needed )02/09/2025 12:30 PM EDTOffice Visit [facility] [address] [place] [address] Nereida Castro MD Encounter for gynecological examination; Vaginal bjwizs1002/09/20257520Lvfhml46/14/2025Results Follow-Up [facility] [address] [place] [address] Nereida Castro MD MISCELLANEOUS SMEAR ARWYHJTO30/09/2025Results Follow-Up [facility] [address] [place] [address] Nereida Castro MD Pathology Report, IGP, APT HPV,RFX 16/18,45, HPV Genotypes 16/18,45 Reflex 02/02/2025 1:30 PM EDTOffice Visit [facility] MEAGHANGYN [address] [place] [address] Nereida Castro MD Encounter for gynecological examination; Vaginal lesion; Encounter for gynecological examination without abnormal finding; Encounter for screening for cervical cancer; Breast cancer screening by /07/2025Orders Only [facility] External Department Unsolicited Nereida Castro MD 02/02/20257990Pdvvel63/30/2025Telephone [facility] [address] [place] [address] Nereida Castro MD 01/19/2025 4:00 PM EDTOffice Visit [facility] [address] [facility] [address] [place] [address] Luan Kincaid MD Weakness of both lower extremities (Primary Dx); Carpal tunnel syndrome, bilateral; Cognitive decline; Cervical paraspinal muscle spasm; B12 deficiency; Guyon syndrome, unspecified imdpiiaesx87/23/2025amboo flowsheet [facility] [address] [place] [address] Luan Kincaid MD 01/19/2025Travelfrom Last 3 Months Family History Medical HistoryRelationNameCommentsMental illnessDaughterCancerFatherHeart diseaseFatherStrokeFatherHeart diseaseMotherHypertensionMotherStrokeMother DiabetesSiblingBipolar disorderSister 1DiabetesSonRelationNameStatusComments Brother 1AliveBrother 2AliveDaughterAliveFatherDeceasedMaternal Grandfather DeceasedMaternal GrandmotherDeceasedMotherDeceasedPaternal GrandfatherDeceased Paternal GrandmotherDeceasedSiblingAliveSister 1AliveSister 2AliveSonAlive Social History Tobacco UseTypesPacks/DayYears UsedDateSmoking Tobacco: Every KsuRxidchlkvt697 Started: 1973Smokeless Tobacco: Current Tobacco Cessation:Ready to Q uit: Not Asked; Counseling Given: Not Answered Comments:Smokes 11-20 cigs per day Alcohol UseStandard Drinks/WeekCommentsNever0 (1 standard drink = 0.6 oz pure alcohol)caffeine intake: occasionalCommentsNoSex and Gender Information ValueDate RecordedSex Assigned at BirthNot on fileLegal TvvOdjlcv79/15/2023 8:02 PM EDTGender IdentityNot on fileSexual OrientationNot on file Last Filed Vital Signs Vital SignReadingTime TakenCommentsBlood Uupbaphi217/7410 12:41 PM EDT Phztf4215 1:55 PM EDTTemperature--Respiratory Rate--Oxygen Saturation-- Inhaled Oxygen Concentration--Qvuuji77 kg (194 lb)02/09/2025 12:41 PM EDTHeight 170.2 cm (5' 7 )02/02/2025 1:19 PM EDTBody Mass Index30.381 1:19 PM EDT Plan of Treatment DateTypeDepartmentCare Team (Latest Contact Info)Jgzmgjzsdov87/24/2026 4:00 PM EDTOffice Visit [facility] [address] [place] [address] Luan Kincaid MD [address] [facility] [address] [place] [address] 08/10/2025 1:15 PM EDTOffice Visit [facility] [address] [place] [address] Nereida Castro MD [address] [place], [place] [address] Procedures Procedure NamePriorityDate/TimeAssociated DiagnosisCommentsPATHOLOGY REPORT Mfglvgw8402/02/2025 2:47 PM EDT Vaginal lesion HPV GENOTYPES 16/18,45 LWXNQFAoueipd95/07/2025 12:00 AM EDT MISCELLANEOUS SMEAR XBNKJNUURnhcmdl46/07/2025 12:00 AM EDT IGP, APT HPV,RFX 16/18,30Zkrtira16/07/2025 12:00 AM EDT Encounter for gynecological examination without abnormal finding Encounter for screening for cervical cancer from Last 3 Months Results * Pathology Report (02/02/2025 2:47 PM EDT)ComponentValueRef RangeTest Method Analysis TimePerformed AtPathologist SignatureMaterial Submitted:Comment [facility]PComment: Material submitted: ?. vulva - VULVA Clinician Provided XVJ14ObzbesvSAYKGEWNmkgcdz: Clinician provided ICD-10: N89.8 Diagnosis:CommentLABCORPComment: Diagnosis: VULVA, [...] CASSETTE. MZH/BXS ??02/03/2025 ??1504 Local Pathologist Provided TQW86NfjneinPUSLLRZKrynkfn: Pathologist provided ICD-10: N90.89 CPTCommentLABCORPComment: CPT ?. 795154 Specimen (Source)Anatomical Location / LateralityCollection Method / Volume Collection TimeReceived TimeOtherTopography unknown / Vukoiwq4202/02/2025 2:47 PM EDT1omment:Other Vulva Print requ Narrative [facility] - 02/04/2025 10:07 AM EDT Performed at: 01 - [facility] [address] [place] [address] ??[id number] Core Stacker: Kemar Bella MD, Phone: ??[phone] Performed at: ??02 - [address] ??[id number] Core Stacker: Jason Nation MD, Phone: ??[phone] Performed at: ??03 - [facility] [address] [place] [address] ??[id number] Core Stacker: Kemar Bella MD, Phone: ??[phone] Specimen Comment: [id number] Specimen Comment: No. of containers..01 Tissue Authorizing [...] by:CommentLABCORPComment:Eldon Madera MD, PathologistPerformed by:Comment [facility]PComment:Carmelita Reese, Operating Room Assistant ([facility])Gross description:Comment [facility]ABC[facility]PComment: 20ML, LT WHITE, CLOUDY /LCS ??02/05/2025 ??0740 Local Specimen (Source)Anatomical Location / LateralityCollection Method / Volume Collection TimeReceived Time51 Narrative [facility] - 02/08/2025 1:07 PM EDT Performed at: 01 - [facility], [place] ??[id number] Core Stacker: Savi Cai MD, Phone: ??[phone] Specimen Comment: No. of containers..01 ThinPrep Vial [...] ICD10:CommentL[facility]P Comment: Z01.419 Z12.4 Performed By:CommentLABCORPComment:Jolly Kennedy, Operating Room Assistant ([facility]) Electronically Signed By:CommentLABCORPComment:Valery Varela MD, Pathologist Cyto [...] ThinPrep(R) pap test was interpreted using the Hologic(R) Genius(TM) Cervical Algorithm whole slide imaging system. HPV AptimaPositive(A)NegativeLABCORPComment: This nucleic acid amplification test detects fourteen high-risk HPV types (16,18,31,33,35,39,45,51,52,56,58,59,66,68) without differentiation. Specimen (Source)Anatomical Location / LateralityCollection Method / Volume Collection TimeReceived TimeVaginal Fluid Narrative [facility] - 02/08/2025 8:07 PM EDT Performed at: 01 - [facility] ??[id number] Core Stacker: Savi Cai MD, Phone: ??[phone] Performed at: ??02 - Lab[address] ??[id number] Core Stacker: Savi Cai MD, Phone: ??[phone] Specimen Comment: Source.............Cervix Specimen Comment: No. of [...] 8:07 PM EDT Performed at: 02 - [facility] [address] ??[id number] Core Stacker: Savi Cai MD, Phone: ??[phone] Authorizing ProviderResult TypeResult StatusNereida Castro MDLAB CYTOLOGY ORDERABLESFinal ResultPerforming OrganizationAddressCity/State/ZIP CodePhone Number [facility] from Last 3 Months Insurance Care Teams Team MemberRelationshipSpecialtyStart DateEnd Sandra Lewis DO [address] [facility] [place] [address] PCP - GeneralFamily Medicine10/15/24
--- OUTSIDE RECORDS SUMMARY | 2025-04-19 15:50 | XMS_ITS | Clinical Summary ---
Author Organization [facility] Address [address] [place] [address] Phone Care Team Providers Care Fruit Checker Name Role Phone Shantel Norton APRN-COUNTERINTELLIGENCE AGENT Primary Care Pro vider Allergies Active AllergyReactionsCriticalityNoted DateCommentsSulfa (Sulfonamide Antibiotics)GI intolerance,Unknown,Nausea/isbecehp66/30/2019 Medications MedicationSigDispense QuantityRefillsLast FilledStart DateEnd DateStatus semaglutide [...] CORRECTIVE SCALE (EXPECT UP TO 20 UNITS/DAY08/26/2023ctive simvastatin (Zocor) 20 mg tablet Indications:HypercholesteremiaTake 1 tablet (20 mg) by mouth once daily. 90 tablet 5005/22/2025ctive magnesium oxide (Mag-Ox) 400 mg tablet Take [...] (morning and late afternoon). 180 tablet 6Active furosemide (Lasix) 20 mg tablet Indications:Shortness of breath,Edema, unspecified typeTAKE 1 TABLET BY MOUTH EVERY OTHER DAY 45 tablet 5Active furosemide (Lasix) 20 mg tablet Indications:Shortness of breath,Edema, unspecified typeTake 1 tablet (20 mg) by mouth every other day. 45 tablet Discontinued Active Problems ProblemNoted DateDiagnosed DateObesity (BMI 30-39.9)12/16/2023Typical atrial jplctvm4510/07/2023Nonischemic filruecckbzaud24/10/6824Dlmcdwmi75/21/2024 Overview (09/17/2023): Last Assessment & Plan: Assessment: on Actos, metformin and Humalog. States BG in Am 110-140, Last A1C- 6.5 Tqgzafizvugrbnqcwi62/21/2024 Overview (09/17/2023): Last Assessment & Plan: Assessment: on statin Xflxxkveztlm46/21/2024 Overview (09/17/2023): Last Assessment & Plan: Assessment: controlled on Lisinopril Current ywsyvf6409/17/2023 Overview (09/17/2023): Last Assessment & Plan: Assessment: Current 40 pack year Resolved Problems ProblemNoted DateDiagnosed DateResolved DateHigh risk medication use11/13/2023 5BMI 28.0-28.9,adult/ Encounters DateTypeDepartmentCare ItpyEnovdsrplsn80/13/2025Refill [facility] [address] [place] [phone] Roland Faust MD Shortness of breath; Edema, unspecified type03/26/2025Telephone [facility] [address] [place] [phone] Tabatha Patiño RN 02/11/2025Refill [facility] [address] [place] [phone] Roland Faust MD Hypertension, unspecified type; Nonischemic cardiomyopathy (Multi)from Last 3 Months Family History Medical HistoryRelationNameCommentscabgFatherHeart failureMotherheart stent MotherRelationNameStatusCommentsFatherMother Social History Tobacco UseTypesPacks/DayYears UsedDateSmoking Tobacco: Every DayCigarettes Smokeless Tobacco: Never Tobacco Cessation:Ready to Q uit: No; Counseling Given: Yes Alcohol UseStandard Drinks/WeekCommentsNever0 (1 standard drink = 0.6 oz pure alcohol)CommentsUnknownSex and Gender InformationValueDate RecordedSex Assigned at BirthNot on fileLegal JjkStlsoq76/02/2023 3:01 AM EDTGender Identity Not on fileSexual OrientationNot on file Last Filed Vital Signs Vital SignReadingTime TakenCommentsBlood Yfqnxgaw634/7009 1:47 PM EDT Cndcu7446/03/2025 1:47 PM EDTTemperature--Respiratory Rate--Oxygen Saturation-- Inhaled Oxygen Concentration--Zwlxmz53.4 kg (197 lb)12/30/2024 1:47 PM EDTHeight 170.2 cm (5' 7 )12/30/2024 1:47 PM EDTBody Mass Index30.85012/30/2024 1:47 PM EDT Plan of Treatment DateTypeDepartmentCare Team (Latest Contact Info)Nesixhmmsen99/21/2026 3:10 PM EDTOffice Visit at [facility] [address] [place] [phone] Roland Faust MD [address] [place] [address] Health MaintenanceDue DateLast DoneCommentsCT Groypshsltqa32/30/1958Colonoscopy 1957Colorectal Cancer Mvwphpsdj04/30/1958Diabetes: Hemoglobin A1C 1957Diabetes: Urine Protein Sgowzeodd15/30/1958FIT-DNA (Cologuard) 1957FIT1957Lipid Panel1957Medicare Annual Wellness Visit (AWV) 1955 9261Csvnuvwicotgq85/30/1958Diabetes: Retinopathy Ebkkrzcwf88/30/1968 Hepatitis C Fvgqpgoqo92/30/1976Pneumococcal Vaccine (1 of 2 - PCV)1976 DTaP/Tdap/Td Vaccines (1 - Tdap)11/26/1979RSV High Risk: (Elderly (60+) or Population) (1 - Risk 50-74 years 1-dose series)11/26/2007Zoster Vaccines (1 of 2)11/26/20078026Tggdvqfvt53/12/202202/1Bone Density Scan 2022TSH Level/03/2024COVID-19 Vaccine (1 - 5-26 season) 2024Influenza Vaccine (#1)2024MMR BtbdtypbVkujibeeo19/05/2002HIB VaccinesAged OutNo longer eligible based on patient's [...] Teams Team MemberRelationshipSpecialtyStart DateEnd Date Shantel Norton APRN-COUNTERINTELLIGENCE AGENT [address] [place] [address] PCP - GeneralFamily Medicine12/30/24
--- OUTSIDE RECORDS SUMMARY | 2025-04-19 15:50 | XMS_ITS | Clinical Summary ---
Author Organization [facility] Address [address] [place], [place] [id number] Care Team Providers Care Seasonal Package Handler Name Role Phone Shantel Norton PICK UP Primary Care Provider Allergies Active AllergyReactionsCriticalityNoted DateCommentsSulfa (Sulfonamide Antibiotics)Dpkcfuom84/30/2019 Medications MedicationSigDispense QuantityRefillsLast FilledStart DateEnd DateStatus cyanocobalamin (VITAMIN B-12) 1,000 mcg tab 1,000 mcg once daily. Active folic acid 1 mg tablet Take 1 mg by mouth once daily. Active metFORMIN [...] 1 applicatorful vaginally once daily for 7 [id number] insulin lispro sliding scale 1 (HUMALOG) Inject [...] by mouth once daily. 235 g 01/07/2019Active sertraline (ZOLOFT) 50 mg tablet Take 50 mg by mouth.01/12/2025tive semaglutide (OZEMPIC) 1 mg/dose (4 mg/3 mL) pen Inject 1 mg subcutaneously one time a week.03/27/2021ctive pregabalin (LYRICA) 300 mg capsule Take 300 mg by mouth two times a day.Active memantine (NAMENDA) 10 mg tablet Take 10 mg by mouth two times a day.07/03/2024tive apixaban (ELIQUIS) 5 mg tab(s) .OPZOPDC67/14/2024Active carvedilol (COREG) 12.5 mg tablet Take 12.5 mg by mouth./6Active donepezil (ARICEPT) 10 mg tablet Take 20 mg by mouth every morning.Active JARDIANCE 25 mg tablet Take 25 mg by mouth once daily.Active EPINEPHrine (EPIPEN) 0.3 mg/0.3 mL auto-injector [id number] 0.3 ml EPINEPHrine 1 mg/ml auto-injector (5 sources) alpha-Adrenergic Agonist, beta-Adrenergic Agonist, Catecholamine Start: /5Active FREESTYLE JUDY 14 DAY SENSOR kit 04/08/2025tive furosemide (LASIX) 20 mg tablet Take by mouth.05/07/2024tive NILA SOLABRAM U-300 INSULIN 300 unit/mL (1.5 mL) INJECT 23 UNITS SUBCUTANEOUSLY EVERY MORNINGActive magnesium oxide (MAG-OX) 400 mg (241.3 mg magnesium) tablet Take 1 tablet by mouth every 12 hours.5Active ketoconazole (NIZORAL) 2 % shampoo ketoconazole 20 mg/ml medicated shampoo (2 sources) Azole Antifungal Start: 5Active tacrolimus (PROTOPIC) 0.1 % ointment APPLY TO AFFECTED AREAS ON FACE TWICE DAILY UNTIL CLEAR .5Active traMADol (ULTRAM) 50 mg tablet Take 50 mg by mouth two times a day as needed for pain.Active lisinopril (ZESTRIL, PRINIVIL) 10 mg tablet Take 10 mg by mouth once daily. Discontinued(Course of therapy completed) Active Problems ProblemNoted DateDiagnosed DateGERD (gastroesophageal reflux disease)04/09/2025 Assessment & Plan (04/09/2025 12:18 PM EST): Assessment: Controlled with PPI Atrial qelkxwz1704/09/2025 Assessment & Plan (04/09/2025 12:27 PM EST): Assessment: Stable Currently on Carvedilol and Eliquis- [...] no recurrence since then MCI (mild cognitive impairment)04/09/2025 Assessment & Plan (04/09/2025 12:46 PM EST): Assessment: On Namenda Follows with Neurology Dr. Kincaid BOSTON (obstructive sleep apnea)04/09/2025 Assessment & Plan (04/09/2025 12:47 PM EST): Assessment: Does not use CPAP Anxiety and rkvlnkklqy41/12/2025 Assessment & Plan (04/09/2025 12:51 PM EST): Assessment: Controlled with SSRI Diabetic ulcer of right foot associated with type 2 diabetes rdvisgft42/12/2025 Assessment & Plan (04/09/2025 1:14 PM EST): Assessment: Chronic, Stable Patient and daughter report it has been there for Months Denies any infection Wound currently closed Follows with podiatry Hypertension Assessment & Plan (04/09/2025 1:17 PM EST): Assessment: Controlled with medication management 91/58 in office today Reports BP normally runs low Denies any lightheaded or dizziness Assessment & Plan (12/17/2018 2:53 PM EDT): Assessment: controlled on Lisinopril Diabetes Assessment & Plan (04/09/2025 1:07 PM EST): Assessment: Complaint with oral medication, GLP 1, and insulin A1C ordered today Instructions provided to patient on how long to hold diabetic medications prior to procedure & Regarding clear liquid diet the day prior to procedure Assessment & Plan (12/17/2018 2:54 PM EDT): Assessment: on Actos, metformin and Humalog. States BG in Am 110-140, Last A1C- 6.5 Hypercholesteremia Assessment & Plan (04/09/2025 12:16 PM EST): Assessment: Compliant with Statin Assessment & Plan (12/17/2018 2:53 PM EDT): Assessment: on statin Smoker Assessment & Plan (04/09/2025 1:07 PM EST): Assessment: Smokes 1 PPD 51 Pack years Assessment & Plan (12/17/2018 2:54 PM EDT): Assessment: Current 40 pack year Encounters DateTypeDepartmentCare LymwIiwvnrlloog09/19/2025 11:59 PM ESTAnesthesia Event [facility] Operating Room [address] [place] [address] Alejandra Willis AA Student 04/12/2025Results Follow-Up Gynecology Oncology [address] [place] [address] Sarah Coto, SPR[employer] G[employer]NER.HOME HEALTH CARE RESPIRATORY THERAPIST 04/12/2025Telephone Pre Anesthesia [address] [place] [address] Reyna Smart, SPR[employer] G[employer]NER.HOME HEALTH CARE RESPIRATORY THERAPIST Anesthesia Tvgrael3404/09/2025 1:07 PM EST - 04/09/2025 11:59 PM ESTHospital Encounter Radiology [address] [place] [address] 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] Discharge Disposition: Home04/09/2025 12:20 PM ESTPAT Pre Anesthesia [address] [place] [address] 1, [place] Pre-op evaluation (Primary Dx); Hypercholesteremia; Primary hypertension; Gastroesophageal reflux disease, unspecified whether esophagitis present; Atrial flutter, unspecified type (HCC); MCI (mild cognitive impairment); BOSTON (obstructive sleep apnea); Anxiety and depression; Type 2 diabetes mellitus with other specified complication, unspecified whether usp insulin use (HCC); Smoker; Diabetic ulcer of right foot associated with type 2 diabetes mellitus, unspecified part of foot, unspecified ulcer stage (HCC)04/09/2025Radiology Radiology [address] [place] [address] Concepción Devries, RT(R) Radiology XR04/01/2025Telephone Pre Anesthesia [address] [place] [address] Jessica Boone, [employer] G[employer]NER.HOME HEALTH CARE RESPIRATORY THERAPIST Missed Zlwipuynqpb73/03/3812Lggkkn00/02/2025Telephone Gynecology [address] [place] [address] Julita Soliz, RN Pre-Op Zzjcaktb72/13/2025Telephone Obstetrics/Gynecology [address] [address] Milly Antonio MD Schedule Lhaxxsa9303/10/2025 11:00 AM ESTVisit (SP) Office Gynecology Oncology [address] [place] [address] [place] [address] Milly Antonio MD Condyloma acuminatum (Primary Dx); Low grade squamous intraepithelial lesion on cytologic smear of vagina (LGSIL); HPV in female; Pre-op testing; Other urinary tdclvkzpepor96/12/4897Ibnxfc26/Telephone [facility] [address] [place] [address] Milly Antonio MD 02/10/2025Lab Requisition [facility] [address] [place] [address] Milly Antonio MD Person encountering health services to consult on behalf of another person 02/04/2025Telephone [facility] [address] [place] [address] Milly Antonio MD from Last 3 Months Family History Medical HistoryRelationCommentsCancerFatherHeart diseaseFatherStrokeFatherHeart diseaseMotherHypertensionMotherStrokeMotherDiabetesSisterRelationStatusComments FatherDeceasedMaternal GrandfatherDeceasedMaternal GrandmotherDeceasedMother DeceasedPaternal GrandfatherDeceasedPaternal GrandmotherDeceasedSister Social History Tobacco UseTypesPacks/DayYears UsedDateSmoking Tobacco: Every WxqVhjyympevp975 Started: 1974Smokeless Tobacco: Never Tobacco Cessation:Ready to Q uit: Not Asked; Counseling Given: Not Answered Alcohol UseStandard Drinks/WeekCommentsNot Currently0 (1 standard drink = 0.6 oz pure alcohol)Area Deprivation IndexAnswerDate RecordedNational Score (1-100), lower number is lower lpwc565003/10/2025State Score (1-10), lower number is lower wzsh66205/10/2024Data from: https://www.neighborhoodatlas.medicine.[facility].edu/. Last address used for eazxdcvtnzv[address] [facility]03/10/2025CommentsNoSex and Gender InformationValueDate RecordedSex Assigned at BirthNot on fileLegal Sex Dmhlyx0803/30/2012 10:19 AM ESTGender IdentityNot on fileSexual OrientationNot on file Last Filed Vital Signs Vital SignReadingTime TakenCommentsBlood Wjinqeeu90/5804/09/2025 12:22 PM EST Soasd944704/09/2025 12:22 PM MFOYzukdkeiosp44.7 ??C (98.1 ??F)04/09/2025 12:22 PM ESTRespiratory Ytwg296706/10/2024 12:22 PM ESTOxygen Rnhzgoxmvm60%04/09/2025 12:22 PM ESTInhaled Oxygen Concentration--Qhfczj00 kg (189 lb 9.5 oz)04/09/2025 12:22 PM XADCcjsqi069.2 cm (5' 7 )04/09/2025 12:22 PM ESTBody Mass Index29.69 04/09/2025 12:22 PM EST Plan of Treatment DateTypeDepartmentCare Team (Latest Contact Info)Bfwqbgzdnty66/14/2026 11:45 AM ESTVisit (SP) Office Gynecology Oncology [address] [place] [address] [place] [address] Milly Antonio MD [address] [place] [address] post opHealth MaintenanceDue DateLast DoneCommentsDiabetic Foot Exam11/26/1967 Dilated Retinal Exam11/26/1967Urine Albumin:Creatinine Ratio11/26/1967Annual PCP Team Chronic Disease Visit11/26/1975Hepatitis C Vcfzcojij98/30/1976LDL Khbpcegturn45/30/1976DTaP,Tdap,Td Vaccine (1 - Tdap)1976Pneumococcal Vaccine: 50+ (1 of 2 - PCV)1976CT Zjhxhwivbeio08/30/2003Cologuard (FIT-DNA)11/25/20026542Dgoypusespr41/30/2003Colorectal Cancer Maiccpkru71/30/2003 Fecal Occult Blood11/25/20020084Cvgsjvewbirzm27/30/2003Lung Cancer Screening 11/26/2007RSV Vaccine (1 - Risk 50-74 years 1-dose series)11/26/2007Shingrix Vaccine (1 of 2)11/26/2007Mammogram Zcftszjty04/03/2021, 05/11/2019, 05/11/2019, Additional history existsBone Density Xoudhynaw00 Advance Directive Iizcoiymrr60/01/2025Medicare Advantage Annual Wellness Visit 5Covid-19 Vaccine ( - 2025-26 season)2024Influenza Vaccine (#1) 12/28/20242837AoP2G67/6106/10/2024, 10/30/2023 Procedures Procedure NamePriorityDate/TimeAssociated DiagnosisCommentsXR CHEST 2V FRONTAL/SFZMldizgw37/12/2025 1:35 PM EST HPV in female Pre-op testing HEMOGLOBIN M3MFadmjrr78/12/2025 1:32 PM EST Pre-op evaluation ECG MMIPOFPQ31/12/2025 12:46 PM EST TYPE + SCREEN,30 NCMRodncth68/12/2025 12:12 PM EST Pre-op testing COMPLETE BLOOD OBCPNYtofxgi98/12/2025 12:12 PM EST Pre-op testing COMPREHENSIVE METABOLIC UULMLDwmdobv15/12/2025 12:12 PM EST Pre-op testing EXTERNAL LAB02/12/2025 8:39 AM EDT EXTERNAL LAB02/12/2025 8:39 AM EDT EXTERNAL LAB02/12/2025 8:39 AM EDT OUTSIDE SURG PATH SLIDE FIJMIUGznulfh23/15/2025 10:21 PM EDT Person encountering health services to consult on behalf of another person PT ED OBSTETRICS & RZMJGDQLMA62/14/2025 EXTERNAL LAB02/04/2025 2:41 PM EDT from Last 3 Months Results * XR CHEST 2V FRONTAL/LAT (04/09/2025 1:35 PM EST)Anatomical RegionLaterality ModalityChestOtherSpecimen (Source)Anatomical Location / LateralityCollection Method / VolumeCollection TimeReceived Time04/09/2025 1:35 PM EST Impressions 04/12/2025 7:51 AM EST IMPRESSION: No acute cardiopulmonary process. Clinical Project Coordinator: DANK ?? Transcribe Date/Time: Apr 12 2025 [...] ??Pulmonary vasculature is unremarkable. Procedure Note Provider, [facility] - 04/12/2025 * * *Final Report* * [...] isunremarkable. IMPRESSION IMPRESSION: No acute cardiopulmonary process. Clinical Project Coordinator: DANK Transcribe Date/Time: Apr 12 2025 7:43A Dictated by : VIRAL PENNY MD This examination was interpreted and the report reviewed and electronically signed by: VIRAL PENNY MD on Apr 12 2025 7:49AM EST Authorizing ProviderResult TypeResult StatusSuzanne Surovec SPRAY GUNNER.CNPRAD-PAMA Final Result * (ABNORMAL) HEMOGLOBIN A1C (04/09/2025 1:32 PM EST)ComponentValueRef RangeTest MethodAnalysis TimePerformed AtPathologist SignatureHemoglobin A1C8.4(H)4.3 - 5.6 %04/11/2025 8:54 AM [facility] MAIN LABComment:[place] Diabetes Association guidelines indicate that patients with HgbA1c in the range 5.7- 6.4% are at increased risk for development of diabetes, and intervention by lifestyle modification may be beneficial. HgbA1c greater or equal to 6.5% is considered diagnostic of diabetes.Estimated Average Pvjodly096tz/dL04/11/2025 8:54 AM [facility] MAIN LABComment:eAG: (Estimated average glucose) is a calculated value from HgbA1c and is traffic representative of the average blood glucose level in the last 2-3 month period.Specimen (Source)Anatomical Location / LateralityCollection Method / VolumeCollection TimeReceived Time BloodBLOOD SPECIMEN / UnknownVenipuncture / Vlcoxmb4304/09/2025 1:32 PM EST 04/09/2025 1:33 PM EST Narrative Authorizing ProviderResult TypeResult StatusKaitmely Smart SPRAY GUNNER.CNPLABORATORY Final ResultPerforming OrganizationAddressCity/State/ZIP CodePhone Number [facility] [address] * ECG COMPLETE (04/09/2025 12:46 PM EST)ComponentValueRef RangeTest Method Analysis TimePerformed AtPathologist SignatureVentricular Uyrm61HPZVNUPA AND VASCULAR INSTITUTEAtrial Ygmh86XSPXDPDI AND VASCULAR INSTITUTEP-R Tehjttmj546 msHEART AND VASCULAR INSTITUTEQRS Echvggxp05evZPRVX AND VASCULAR INSTITUTEQT Ypdoahei504dwQDZML AND VASCULAR INSTITUTEQTC Calculation (Bazett)447msHEART AND VASCULAR INSTITUTECalculated P Srgb93expqhrnTOQNW AND VASCULAR INSTITUTE Calculated R Ffhs67ijrnpmxCVMGN AND VASCULAR INSTITUTECalculated T Axis33 degreesHEART AND VASCULAR INSTITUTESpecimen (Source)Anatomical Location / LateralityCollection Method / VolumeCollection TimeReceived Time04/09/2025 12:46 PM EST Impressions [facility] - 04/10/2025 8:41 AM EST NORMAL SINUS RHYTHM NORMAL ECG Confirmed by Julia PHILLIPS RAVISANKAR ([id number]) on 04/10/2025 8:41:00 AM Narrative [facility] - 04/10/2025 8:41 AM EST NAME : KERRY MARCOS PID : [id number] : 1955 Gender : Female Race : ORD : Procedure Date : Apr 09 2025 12:46:01 Edit Date : Apr 10 2025 08:41:01 Diagnosis: NORMAL SINUS RHYTHM NORMAL ECG Confirmed by Julia PHILLIPS RAVISANKAR ([id number]) on 04/10/2025 8:41:00 AM Test Reason : Location : 145 : LOCARD ?? Overread By : Julia PHILLIPS RAVISANKAR Edited By : Julia PHILLIPS RAVISANKAR Referred By : MILLY ANTONIO Acquired by : , Authorizing ProviderResult TypeResult StatusCcf ProviderEKGFinal Result Performing OrganizationAddressCity/State/ZIP CodePhone Number [facility] [address] [place] [address] * TYPE AND SCREEN,30 DAY (03/10/2025 12:12 PM EST)ComponentValueRef RangeTest MethodAnalysis TimePerformed AtPathologist ZqjpqnkazSQJE65/12/2025 5:51 PM EST [facility] MAIN LABRh(D)Hscdtyms10/12/2025 5:51 PM ESTUNIV[facility] MAIN LABAntibody OoaraxNfnucaga32/12/2025 5:51 PM ESTUNIV[facility] Specimen (Source)Anatomical Location / LateralityCollection Method / Volume Collection TimeReceived TimeBloodBLOOD SPECIMEN / UnknownVenipuncture / Cunlwhe2103/10/2025 12:12 PM EST03/10/2025 12:12 PM EST Narrative Authorizing ProviderResult TypeResult StatusMichelnikolai Antonio MDOOD BANK Final ResultPerforming OrganizationAddressCity/State/ZIP CodePhone Number [facility] [address] [place] [address], * (ABNORMAL) COMPREHENSIVE METABOLIC PANEL (03/10/2025 12:12 PM EST)Component ValueRef RangeTest MethodAnalysis TimePerformed AtPathologist Signature Protein, Total7.56.3 - 8.0 g/dL03/10/2025 12:34 PM ESTBECKLEY [facility] LABAlbumin4.23.9 - 4.9 g/dL03/10/2025 12:34 PM [facility] LABCalcium, Total10.4(H)8.5 - 10.2 mg/dL03/10/2025 12:34 PM [facility] LABBilirubin, Total0.40.2 - 1.3 mg/dL03/10/2025 12:34 PM [facility] LABAlkaline Hhswjpjxmgs54120 - 123 U/L105/10/2024 12:34 PM [facility] POHEPJ8557 - 35 U/L105/10/2024 12:34 PM [facility] UUTAPR962 - 38 U/L105/10/2024 12:34 PM [facility] BLVWadyurh577(H)74 - 99 mg/dL03/10/2025 12:34 PM [facility] LABComment: The [place] Diabetes Association (ADA) provides guidance for cutoff values for fasting glucose andrandom glucose. The ADA defines fasting as no [...] Standards of Medical Care in Diabetes 2016, [place] Diabetes Association. Diabetes Care. 2016.39(Suppl 1). BUN87 - 21 mg/dL03/10/2025 12:34 PM [facility] Creatinine0.890.58 - 0.96 mg/dL03/10/2025 12:34 PM [facility] JLAMpqmmo407929 - 144 mmol/L105/10/2024 12:34 PM [facility] LABPotassium5.03.7 - 5.1 mmol/L105/10/2024 12:34 PM [facility]ASC[facility] TLKSdqvrrqb7899 - 107 mmol/L105/10/2024 12:34 PM EST [facility] FIITF612(H)22 - 30 mmol/L105/10/2024 12:34 PM ESTNORTASCENS[facility] LABAnion Gap98 - 15 mmol/L105/10/2024 12:34 PM ESTNORTASCENSION [facility] LABEstimated Glomerular Filtration Rate 71>=60 mL/min/1.73m 03/10/2025 12:34 PM ESTNORTASCENSION [facility] LABComment:Estimated Glomerular Filtration Rate (eGFR) is calculated using the 2020 CKD-EPI creatinine equation. This equation utilizes serum creatinine, sex, and age as parameters. The creatinine assay has traceable calibration to isotope dilution- mass spectrometry. Refer to KDIGO guidelines for clinical interpretation. In patients with unstable renal function, e.g. those with acute kidney injury, the eGFRmay not accurately reflect actual GFR.Specimen (Source)Anatomical Location / LateralityCollection Method / VolumeCollection TimeReceived TimeBloodBLOOD SPECIMEN / UnknownVenipuncture / Bahehxk9403/10/2025 12:12 PM EST03/10/2025 12:12 PM EST Narrative Authorizing ProviderResult TypeResult StatusMichelnikolai Antonio MDLABORATORY Final ResultPerforming OrganizationAddressCity/State/ZIP CodePhone Number [facility] [address] [place] [address] * (ABNORMAL) COMPLETE BLOOD COUNT (03/10/2025 12:12 PM EST)ComponentValueRef RangeTest MethodAnalysis TimePerformed AtPathologist SignatureWBC9.123.70 - 11.00 k/uL03/10/2025 12:14 PM ESTNORTASCENSION [facility] LABRBC5.37 (H)3.90 - 5.20 m/uL03/10/2025 12:14 PM [facility] RKYUgvlumcffq58.8(H)11.5 - 15.5 g/dL03/10/2025 12:14 PM [facility] UTURzrhjkzrvp87.2(H)36.0 - 46.0 %03/10/2025 12:14 PM EST [facility] BSJIUY28.380.0 - 100.0 fL03/10/2025 12:14 PM [facility] XBBTEN46.326.0 - 34.0 pg03/10/2025 12:14 PM [facility] OZXDSVB51.830.5 - 36.0 g/dL03/10/2025 12:14 PM [facility] LABRDW-CV13.511.5 - 15.0 % 03/10/2025 12:14 PM [facility] LABPlatelet Dhakq342 150 - 400 k/uL03/10/2025 12:14 PM [facility] LABMPV 11.79.0 - 12.7 fL03/10/2025 12:14 PM [facility] LAB Absolute nRBC<0.01<0.01 k/uL03/10/2025 12:14 PM [facility] LABSpecimen (Source)Anatomical Location / LateralityCollection Method / VolumeCollection TimeReceived TimeBloodBLOOD SPECIMEN / UnknownVenipuncture / Obvcjvo3603/10/2025 12:12 PM EST03/10/2025 12:12 PM EST Narrative Authorizing ProviderResult TypeResult StatusMichelnikolai Antonio MDLABORATORY Final ResultPerforming OrganizationAddressCity/State/ZIP CodePhone Number [facility] [address] [place] [address] * EXTERNAL LAB (02/12/2025 8:39 AM EDT) Only the most recent of4 resultswithin the time period is included. Narrative Authorizing ProviderResult TypeResult StatusExternal Provider PA-CLABORATORY Final Result * OUTSIDE SURG PATH SLIDE REVIEW (02/10/2025 10:21 PM EDT)ComponentValueRef RangeTest MethodAnalysis TimePerformed AtPathologist SignatureCase Report Surgical Pathology Report ? Case: [id number] ? Authorizing Provider: ??Milly Antonio MD Collected: ? 02/10/2025 10:21 PM ? Ordering Location: ? [facility] ?Received: ?02/10/2025 10:19 PM ? [facility] ? Pathologist: ? Stacy Hassan MD ? Specimen: ?Slide(s), 2 SLIDES ([id number]) ? 02/11/2025 3:16 PM EDTCCLEVEL[facility] MAIN LABFINAL DIAGNOSISReview of outside slides Vulva, biopsy: Consistent with condyloma.02/11/2025 3:16 PM EDTCCLEVELAND [facility] LAB at 1516 EDT Performing LabDiagnostic interpretation performed at: [facility], [address] [place] [address] CLIA# [id number] Traffic Survey Technician: Rudi Turner MD 02/11/2025 3:16 PM EDTCBUCYRUS [facility] LABDisclaimerLaboratory Developed Test (LDT) Disclaimer: Performance characteristics of immunohistochemical, immunofluorescent, and chromogenic in-situ hybridization tests have been determined by the performing laboratory within the [facility] Department of Pathology and Laboratory Medicine ([facility], [facility], [facility], [facility], [facility], [facility], or Community [facility]) in a manner consistent with CLIA requirements. One or more of these tests may not have been cleared or approved by the FDA. The [facility] Department of Pathology and Laboratory Medicineis regulated under CLIA as qualified to perform high-complexity testing. These tests are used for clinical purposes. These should not be regarded as investigational or for research. Positive and negative controls stain appropriately.02/11/2025 3:16 PM EDT [facility] LABSpecimen (Source)Anatomical Location / Laterality Collection Method / VolumeCollection TimeReceived TimeBlocks or SlidesMICROSCOPE SLIDE / Tkaainu3502/10/2025 10:21 PM EDT1 10:19 PM EDT Narrative Authorizing ProviderResult TypeResult StatusMicmonalisa Antonio MDSURGICAL PATHOLOGYFinal ResultPerforming OrganizationAddressCity/State/ZIP CodePhone Number [facility] [address] [place] [address], * PT ED OBSTETRICS & GYNECOLOGY (02/09/2025)Specimen (Source)Anatomical Location / LateralityCollection Method / VolumeCollection TimeReceived Time02/09/2025 Narrative DANNY - 03/12/2025 Provider PACO your patient KERRY PRITI has not started their Danny program, time has . Danny program: [facility] WHAT TO EXPECT AT YOUR APPOINTMENT Authorizing ProviderResult TypeResult StatusMicmonalisa Antonio MDEMMIFinal ResultPerforming OrganizationAddressCity/State/ZIP CodePhone Number DANNY from Last 3 Months Insurance Care Teams Team MemberRelationshipSpecialtyStart DateEnd Date Shantel Norton NP [address] [place] [address] PCP - GeneralFadcly Yqxiaqub00/24/25
--- OUTSIDE RECORDS SUMMARY | 2025-04-19 15:51 | XMS_ITS | Encounter Summary ---
Author Organization [facility] Address [address] [place], [place] [address] Care Team Providers Care Director Of User Experience Name Role Phone Shantel Norton DATA PROCESSING SYSTEMS CONSULTANT Primary Care Provider Source Comments In the event this information is protected by the Federal Confidentiality of Alcohol and Drug AbusePatient Records regulations: The Federal rules restrict any use of the information to criminally investigate or prosecute any alcohol or drug abuse patient.[facility] Reason for Visit * ReasonCommentsAnesthesia Consult Encounter Details DateTypeDepartmentCare Team (Latest Contact Info)Bnrchrxunfe02/15/2025Telephone Pre Anesthesia [address] [place] [address] Reyna Smart APRN.OXIDATION ENGINEER [address] [place] [address] Anesthesia Consult Social History Tobacco UseTypesPacks/DayYears UsedDateSmoking Tobacco: Every RblUqepkxgqne467 Started: 1972Smokeless Tobacco: NeverAlcohol UseStandard Drinks/WeekCommentsNot Currently0 (1 standard drink = 0.6 oz pure alcohol)Area Deprivation IndexAnswer Date RecordedNational Score (1-100), lower number is lower ftrn778003/10/2025State Score (1-10), lower number is lower nari72705/10/2024Data from: https://www.neighborhoodatlas.medicine.[facility].edu/. Last address used for ycrkoxjijaj[address]03/10/2025CommentsNoSex and Gender InformationValueDate RecordedSex Assigned at BirthNot on fileLegal SexFemale 03/30/2012 10:19 AM ESTGender IdentityNot on fileSexual OrientationNot on file documented as of this encounter Miscellaneous Notes * Telephone Encounter - Reyna Smart APRN.CNP - 04/12/2025 9:00 AM EST I saw patient for Pre-anesthesia appointment. Her A1C came back at 8.4 just wanted to ensure you were aware and okay to proceed, or if you wanted this more controlled prior to procedure. Please let me know. Thanks! Reyna Smart APRN.CNP documented in this encounter Plan of Treatment DateTypeDepartmentCare Team (Latest Contact Info)Mccrstupcgs89/14/2026 11:45 AM ESTVisit (SP) Office Gynecology Oncology [address] [place] [address] [place] [address] Milly Cordoba MD [address] [place] [address] post opdocumented as of this encounter Visit Diagnoses Not on filedocumented in this encounter Care Teams Team MemberRelationshipSpecialtyStart DateEnd Date Shantel Norton NP [address] [place] [address] PCP - GeneralFamily Bqdrhxpl80/24/25documented as of this encounter
--- OUTSIDE RECORDS SUMMARY | 2025-04-19 15:51 | XMS_ITS | Encounter Summary ---
Author Organization [facility] [place] [facility] Address [address] [place] [address] Care Team Providers Care Outdoor Pursuits Instructor Name Role Phone Shantel Norton FORGING OPERATOR Primary Care Provider Source Comments In the event this information is protected by the Federal Confidentiality of Alcohol and Drug AbusePatient Records regulations: The Federal rules restrict any use of the information to criminally investigate or prosecute any alcohol or drug abuse patient.[facility] [place] [facility] Reason for Visit * ReasonCommentsPre-Op Teaching Encounter Details DateTypeDepartmentCare Team (Latest Contact Info)Rtnwkrmhfzw31/02/2025Telephone Gynecology [address] [place] [address] Julita Soliz RN Pre-Op Teaching Social History Tobacco UseTypesPacks/DayYears UsedDateSmoking Tobacco: Every FsmRfcepssihj268 Started: 1972Smokeless Tobacco: NeverAlcohol UseStandard Drinks/WeekCommentsNot Currently0 (1 standard drink = 0.6 oz pure alcohol)Area Deprivation IndexAnswer Date RecordedNational Score (1-100), lower number is lower qpmx813503/10/2025State Score (1-10), lower number is lower yvus54305/10/2024Data from: https://www.neighborhoodatlas.medicine.[facility].edu/. Last address used for qryjpgxogla515 [facility]03/10/2025CommentsNoSex and Gender InformationValueDate RecordedSex Assigned at BirthNot on fileLegal SexFemale 03/30/2012 10:19 AM ESTGender IdentityNot on fileSexual OrientationNot on file documented as of this encounter Miscellaneous Notes * Telephone Encounter - Julita Soliz RN - 04/06/2025 10:55 AM EST LVM for preop teaching. Information sent via [employer]. * Telephone Encounter - Julita Soliz RN - 03/30/2025 2:41 PM EST LVM for preop teaching. Will try back later. documented in this encounter Plan of Treatment DateTypeDepartmentCare Team (Latest Contact Info)Dhxzvlemrwc92/14/2026 11:45 AM ESTVisit (SP) Office Gynecology Oncology [address] [place] [address] [place] [address] Milly Cordoba MD [address] [place] [address] post opdocumented as of this encounter Visit Diagnoses Not on filedocumented in this encounter Care Teams Team MemberRelationshipSpecialtyStart DateEnd Date Shantel Norton NP [address] [place] [address] PCP - GeneralFamily Ydkqouuq26/24/25documented as of this encounter
--- OUTSIDE RECORDS SUMMARY | 2025-04-19 15:51 | XMS_ITS | Encounter Summary ---
Author Organization [facility] Address [address] [place] [address] Care Team Providers Care Perioperative Nurse Name Role Phone Shantel Norton TAIL TRIMMER Primary Care Provider Source Comments In the event this information is protected by the Federal Confidentiality of Alcohol and Drug AbusePatient Records regulations: The Federal rules restrict any use of the information to criminally investigate or prosecute any alcohol or drug abuse patient.[facility] Encounter Details DateTypeDepartmentCare Team (Latest Contact Info)Vwqjzzkbaff31/15/2025Results Follow-Up Gynecology Oncology [address] [phone] Sarah Coto, SUPERVISING EDITOR NEWS REEL.RETAIL STORE ASSISTANT [address] [phone] Social History Tobacco UseTypesPacks/DayYears UsedDateSmoking Tobacco: Every BhyEuukmmiuua688 Started: 1972Smokeless Tobacco: NeverAlcohol UseStandard Drinks/WeekCommentsNot Currently0 (1 standard drink = 0.6 oz pure alcohol)Area Deprivation IndexAnswer Date RecordedNational Score (1-100), lower number is lower gldf143203/10/2025State Score (1-10), lower number is lower fzaq75405/10/2024Data from: https://www.neighborhoodatlas.medicine.[facility].edu/. Last address used for earrjdhjros[address]/10/2025CommentsNoSex and Gender InformationValueDate RecordedSex Assigned at BirthNot on fileLegal SexFemale 03/30/2012 10:19 AM ESTGender IdentityNot on fileSexual OrientationNot on file documented as of this encounter Plan of Treatment DateTypeDepartmentCare Team (Latest Contact Info)Kttnxxdvjsf18/14/2026 11:45 AM ESTVisit (SP) Office Gynecology Oncology [address] [place] [address] [place] [address] Milly Cordoba MD [address] [place] [address] post opdocumented as of this encounter Visit Diagnoses Not on filedocumented in this encounter Care Teams Team MemberRelationshipSpecialtyStart DateEnd Date Shantel Norton NP [address] [place] [address] PCP - GeneralFamily Qbtwcxhl18/24/25documented as of this encounter
--- OUTSIDE RECORDS SUMMARY | 2025-04-19 15:51 | XMS_ITS | Encounter Summary ---
Author Organization [facility] Address [address] [place] [address] Phone Care Team Providers Care Behavioral Pediatrician Name Role Phone Kimberly Nortonfer Rebecca FREEDMAN Primary Care Pro vider Reason for Visit * ReasonCommentsMed Refill Encounter Details DateTypeDepartmentCare Team (Latest Contact Info)Vohzwfcbaak70/13/2025Refill at [facility] [address] [place] [address] Roland Faust MD [address] [place] [address] 2, [address] [address] Shortness of breath; Edema, unspecified type Social History Tobacco UseTypesPacks/DayYears UsedDateSmoking Tobacco: Every DayCigarettes Smokeless Tobacco: NeverAlcohol UseStandard Drinks/WeekCommentsNever0 (1 standard drink = 0.6 oz pure alcohol)CommentsUnknownSex and Gender InformationValueDate RecordedSex Assigned at BirthNot on fileLegal SexFemale 11/28/2022 3:01 AM EDTGender IdentityNot on fileSexual OrientationNot on file documented as of this encounter Plan of Treatment DateTypeDepartmentCare Team (Latest Contact Info)Ikfajtbshyg43/21/2026 3:10 PM EDTOffice Visit [facility] at [facility] [address] [place] [address] Roland Faust MD [address] [place] [address] 2, [facility] [address] [place] [address] documented as of this encounter Visit Diagnoses Diagnosis Shortness of breath Edema, unspecified type documented in this encounter Additional Health Concerns AssessmentNoted TimeA fall risk assessment has been completed for the patient 06/26/2024 9:48 AM ESTdocumented as of this encounter Care Teams Team MemberRelationshipSpecialtyStart DateEnd Date Shantel Norton APRN-OUTDOOR EDUCATION TEACHER [address] [place] [address] PCP - GeneralFamily Medicine12/30/24documented as of this encounter
--- OUTSIDE RECORDS SUMMARY | 2025-04-19 15:51 | XMS_ITS | Encounter Summary ---
Author Organization [facility] Address [address] [place] [address] Care Team Providers Care Courier Delivery Driver Name Role Phone Shantel Norton GAS INSPECTOR Primary Care Provider Source Comments In the event this information is protected by the Federal Confidentiality of Alcohol and Drug AbusePatient Records regulations: The Federal rules restrict any use of the information to criminally investigate or prosecute any alcohol or drug abuse patient.[facility] Reason for Visit * ReasonCommentsRadiology XR Encounter Details DateTypeDepartmentCare Team (Latest Contact Info)Wuwheigtziv24/12/2025Radiology Radiology [address] [place], [place] [phone] Concepción Devries, RT(R) Radiology XR Social History Tobacco UseTypesPacks/DayYears UsedDateSmoking Tobacco: Every QdmBerrqcegnk090 Started: 1972Smokeless Tobacco: NeverAlcohol UseStandard Drinks/WeekCommentsNot Currently0 (1 standard drink = 0.6 oz pure alcohol)Area Deprivation IndexAnswer Date RecordedNational Score (1-100), lower number is lower aekc707503/10/2025State Score (1-10), lower number is lower awtp23405/10/2024Data from: https://www.neighborhoodatlas.medicine.[facility].edu/. Last address used for gxtekhemfqc[address] [facility]03/10/2025CommentsNoSex and Gender InformationValueDate RecordedSex Assigned at BirthNot on fileLegal SexFemale 03/30/2012 10:19 AM ESTGender IdentityNot on fileSexual OrientationNot on file documented as of this encounter Progress Notes * Concepción Devries RT(R) - 04/09/2025 1:31 PM EST Radiology Service Progress Note PATIENT NAME: Kerry Gay DATE OF SERVICE: April 09, 2025 TIME: 1:31 PM PATIENT IDENTITY VERIFICATION COMPLETED USING TWO (2) IDENTIFIERS: Name and Date of confirmedby patient verbally. FALL SCREENING: Has the patient had 2 falls in the last year or 1 fall with injury or currently using an Ambulatory Assistive Device (Walker, Cane, Wheelchair, Crutches, etc.)? Yes, Patient High Riskfor Falls What interventions were put in place to prevent falls during this visit? Offered Assistance with Transfers/Clothing, Instructed Patient to Remain Seated (Not on Exam Table) Until Exam, and Increased Observations by Caregivers PATIENT GENDER DATA: Assigned female at . status: : No status:N/A PATIENT RELEVANT IMPLANT DATA REVIEWED: Not Applicable PATIENT PRESENTS WITH AN IMPLANTABLE OR ATTACHED MUSEUM REGISTRAR: No RADIOLOGY DEPARTMENT: General X-ray: Exam(s) Completed: Chest X-Ray PERIPHERAL IV DATA: Not applicable SIGNED BY: RT Rani(R) April 09, 2025 1:31 PM documented in this encounter Plan of Treatment DateTypeDepartmentCare Team (Latest Contact Info)Uahhehhkcoz23/14/2026 11:45 AM ESTVisit (SP) Office Gynecology Oncology [address] [place] [address] [place] [address] Milly Cordoba MD [address] [place] [address] post opdocumented as of this encounter Visit Diagnoses Not on filedocumented in this encounter Care Teams Team MemberRelationshipSpecialtyStart DateEnd Date Shantel Norton NP [address] [phone] PCP - GeneralFamily Rnmfuibu99/24/25documented as of this encounter
== END 2025-04-19 15:48 | disposition home or self-care (01) ==
LOC: WC 15:48
PROVIDERS: Family Provider Family Medicine; PCP Nurse Practitioner Family; Visit Provider Podiatrist Foot & Ankle Surgery
DX: E11.621 Type 2 diabetes mellitus with foot ulcer (principal); L97.415 Non-pressure chronic ulcer of right heel and midfoot with muscle involvement without evidence of necrosis; L97.412 Non-pressure chronic ulcer of right heel and midfoot with fat layer exposed
CPT/HCPCS: 97597

== ENCOUNTER 2025-04-20 13:32 | Outpatient (OUT) | payer MEDICARE, MEDICAID, SELFPAY ==
--- OUTSIDE RECORDS SUMMARY | 2025-04-09 12:20 | XMS_ITS | Encounter Summary ---
Author Organization [facility] Address [address] [place], [place] [id number] Care Team Providers Care Spinner Open End Name Role Phone Shantel Norton Rebecca GRAIN TRIMMER Primary Care Provider Source Comments In the event this information is protected by the Federal Confidentiality of Alcohol and Drug AbusePatient Records regulations: The Federal rules restrict any use of the information to criminally investigate or prosecute any alcohol or drug abuse patient.[facility] Reason for Visit * ReasonCommentsAnesthesia Consult Encounter Details DateTypeDepartmentCare Team (Latest Contact Info)Zckrktlabds52/12/2025 12:20 PM ESTPAT Pre Anesthesia [address] [place] [address] 1, Pacc [place] [address] [place] [address] Pre-op evaluation (Primary Dx); Hypercholesteremia; Primary hypertension; Gastroesophageal reflux disease, unspecified whether esophagitis present; Atrial flutter, unspecified type (HCC); MCI (mild cognitive impairment); BOSTON (obstructive sleep apnea); Anxiety and depression; Type 2 diabetes mellitus with other specified complication, unspecified whether window installer insulin use ([facility]); Smoker; Diabetic ulcer of right foot associated with type 2 diabetes mellitus, unspecified part of foot, unspecified ulcer stage ([facility]) Social History Tobacco UseTypesPacks/DayYears UsedDateSmoking Tobacco: Every WbtQwageqfgwg063 Started: 1972Smokeless Tobacco: NeverAlcohol UseStandard Drinks/WeekCommentsNot Currently0 (1 standard drink = 0.6 oz pure alcohol)Area Deprivation IndexAnswer Date RecordedNational Score (1-100), lower number is lower zffc046803/10/2025State Score (1-10), lower number is lower fyof45705/10/2024Data from: https://www.neighborhoodatlas.[facility]/. Last address used for snllhiyjqvf902 [facility]03/10/2025CommentsNoSex and Gender InformationValueDate RecordedSex Assigned at BirthNot on fileLegal SexFemale 03/30/2012 10:19 AM ESTGender IdentityNot on fileSexual OrientationNot on file documented as of this encounter Last Filed Vital Signs Vital SignReadingTime TakenCommentsBlood Rdwpqazi91/5804/09/2025 12:22 PM EST Hbfnd371504/09/2025 12:22 PM JRHRpagdrcmfrg32.7 ??C (98.1 ??F)04/09/2025 12:22 PM ESTRespiratory Tqpj996406/10/2024 12:22 PM ESTOxygen Oiandzgeik23%04/09/2025 12:22 PM ESTInhaled Oxygen Concentration--Qnsxei36 kg (189 lb 9.5 oz)04/09/2025 12:22 PM ZSUTpeyah848.2 cm (5' 7 )04/09/2025 12:22 PM ESTBody Mass Index29.69 04/09/2025 12:22 PM ESTdocumented in this encounter Patient Instructions * Patient Instructions* Reyna Smart APRN.JACQUARD CARD LACER - 04/08/2025 11:00 AM EST PATIENT PREOPERATIVE INSTRUCTIONS You Surgeon has scheduled you for your procedure at this surgery center: [facility]: [phone] --[phone] [place] [address]. Please check in on the1st floor at [...] Procedures: - YOU MUST HAVE A RESPONSIBLE HYDROGRAPHICAL TECHNICAL OFFICER TAKE YOU HOME. A INKJET OPERATOR OR RODDING ANODE WORKER CANNOT BE MADE A RESPONSIBLE HYDROGRAPHICAL TECHNICAL OFFICER. - We recommend that a responsible person [...] Advance Directive, please fax a copy to [phone] or email to for it to be [...] and depression Assessment: Controlled with SSRI Diabetes ([facility]) Assessment: Complaint with oral medication, GLP 1, [...] activity. STOP-Bang Score: STOP-Bang Score: 0 (+BOSTON) [id number] Score: Age: 65-74 Sex: female CHF history: Yes Hypertension history: Yes Stroke/TIA/thromboembolism history: No Vascular disease history: No Diabetes history: Yes CZP3UY9-ZWKs Score: 5 ARISCAT Score: Age: 51-80 Preoperative [...] Yes EPINEPHrine (EPIPEN) 0.3 mg/0.3 mL auto-injector [id number] 0.3 ml EPINEPHrine 1 mg/ml auto-injector (5 [...] or problems. +[place]STON Cardiovascular: Negative for Recent [place], Angina, Chest Pain, PVD, DVT/PE +HTN +HLD +Aflutter s/p cardioversion GI: Negative for Nausea, Vomiting, Abdominal pain +GERD : Negative for dysuria, incontinence, hematuria, and hesitancy REWINDER: +See HPI : Denies, No LMP recorded. [...] 414 QTC Calculation (Bazett) 447 Calculated P [place] 53 Calculated R [place] 21 Calculated T [place] 33 Impression NORMAL SINUS RHYTHM NORMAL ECG [...] Plan of Treatment DateTypeDepartmentCare Team (Latest Contact Info)Evpztrtkcei92/14/2026 11:45 AM ESTVisit (SP) Office Gynecology Oncology [address] [place] [address] [place] [address] Milly Cordoba MD [address] [place] [address] post opdocumented as of this encounter Results * (ABNORMAL) HEMOGLOBIN A1C (04/09/2025 1:32 PM EST)ComponentValueRef RangeTest MethodAnalysis TimePerformed AtPathologist SignatureHemoglobin A1C8.4(H)4.3 - 5.6 %04/11/2025 8:54 AM [facility] MAIN LABComment:[place] Diabetes Association guidelines indicate that patients with HgbA1c in the range 5.7- 6.4% are at increased risk for development of diabetes, and intervention by lifestyle modification may be beneficial. HgbA1c greater or equal to 6.5% is considered diagnostic of diabetes.Estimated Average Ugtmmfq871vg/dL04/11/2025 8:54 AM [facility] MA[facility] LABComment:eAG: (Estimated average glucose) is a calculated value from HgbA1c and is agency sales representative of the average blood glucose level in the last 2-3 month period.Specimen (Source)Anatomical Location / LateralityCollection Method / VolumeCollection TimeReceived Time BloodBLOOD SPECIMEN / UnknownVenipuncture / Dsafubg4804/09/2025 1:32 PM EST 04/09/2025 1:33 PM EST Narrative Authorizing ProviderResult TypeResult StatusReyna Smart APRN.CNPLABORATORY Final ResultPerforming OrganizationAddressCity/State/ZIP CodePhone Number [facility] [address] documented in this encounter Visit Diagnoses [...] mellitus with other specified complication, unspecified whether fdc insulin use (HCC) Smoker Tobacco use disorder Diabetic ulcer of right foot associated with type 2 diabetes mellitus, unspecified part of foot, unspecified ulcer stage (HCC) * Assessment & Plan Note - Reyna Smart APRN.JACQUARD CARD LACER - 04/09/2025 1:14 PM EST Associated Problem(s): [...] DateEnd Date Shantel Norton NP [address] [place] [address] PCP - GeneralFamily Vqydgetg56/24/25documented as of this encounter
--- OUTSIDE RECORDS SUMMARY | 2025-04-09 13:07 | XMS_ITS | Encounter Summary ---
Author Organization [facility] Address [address] [place] [address] Care Team Providers Care Director Of Primary Care Name Role Phone Shantel Norton Rebecca CLEARANCE REPRESENTATIVE Primary Care Provider Source Comments In the event this information is protected by the Federal Confidentiality of Alcohol and Drug AbusePatient Records regulations: The Federal rules restrict any use of the information to criminally investigate or prosecute any alcohol or drug abuse patient.[facility] Encounter Details DateTypeDepartmentCare Team (Latest Contact Info)Phubwlrplys44/12/2025 1:07 PM EST - 04/09/2025 11:59 PM ESTHospital Encounter Radiology [address] [place], [place] [address] 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 Last address used for kuftmwijhsv[address] [facility]03/10/2025CommentsNoSex and Gender InformationValueDate RecordedSex Assigned at BirthNot on fileLegal SexFemale 03/30/2012 10:19 AM ESTGender IdentityNot on fileSexual OrientationNot on file documented as of this encounter Medications at Time of Discharge MedicationSigDispense QuantityRefillsLast FilledStart DateEnd Date apixaban (ELIQUIS) 5 mg tab(s) .SNWESZU8710/11/2023 carvedilol (COREG) 12.5 mg tablet Take 12.5 mg by mouth./ donepezil (ARICEPT) 10 mg tablet Take 20 mg by mouth every morning. JARDIANCE 25 mg tablet Take 25 mg by mouth once daily. EPINEPHrine (EPIPEN) 0.3 mg/0.3 mL auto-injector [id number] 0.3 ml EPINEPHrine 1 mg/ml auto-injector (5 [...] 1 applicatorful vaginally once daily for 7 mpdl625documented as of this encounter Plan of Treatment DateTypeDepartmentCare Team (Latest Contact Info)Lvsanupgzqf49/14/2026 11:45 AM ESTVisit (SP) Office Gynecology Oncology [address] [place] [address] [place] [address] Milly Cordoba MD [address] [place] [address] post opdocumented as of this encounter Procedures Procedure NamePriorityDate/TimeAssociated DiagnosisCommentsXR CHEST 2V FRONTAL/IVVFabpxye20/12/2025 1:35 PM EST HPV in female Pre-op testing documented in this encounter Results * XR CHEST 2V FRONTAL/LAT (04/09/2025 1:35 PM EST)Anatomical RegionLaterality ModalityChestOtherSpecimen (Source)Anatomical Location / LateralityCollection Method / VolumeCollection TimeReceived Time04/09/2025 1:35 PM EST Impressions 04/12/2025 7:51 AM EST IMPRESSION: No acute cardiopulmonary process. Gas Usage Meter Clerk: DANK ?? Transcribe Date/Time: Apr 12 2025 [...] ??Pulmonary vasculature is unremarkable. Procedure Note Provider, [facility] [place] - 04/12/2025 * * *Final Report* * [...] isunremarkable. IMPRESSION IMPRESSION: No acute cardiopulmonary process. 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
--- OUTSIDE RECORDS SUMMARY | 2025-04-16 23:59 | XMS_ITS | Encounter Summary ---
Author Organization [facility] Address [place] [address] Care Team Providers Care [place] Cutter Operator Name Role Phone Shantel Norton DATA CONTROL CLERK Primary Care Provider Source Comments In the event this information is protected by the Federal Confidentiality of Alcohol and Drug AbusePatient Records regulations: The Federal rules restrict any use of the information to criminally investigate or prosecute any alcohol or drug abuse patient.[facility] Encounter Details DateTypeDepartmentCare Team (Latest Contact Info)Mwqjqpvxhxd22/19/2025 11:59 PM ESTAnesthesia Event [facility] Operating Room [address] [place] [address] Alejandra Willis AA Student Anesthesia Record Procedure NameResponsible AnesthesiologistAnesthesia Start TimeAnesthesia Stop TimeVULVECTOMY PARTIAL SIMPLE (Pending: Vulva)Events No events on file. * Meds No medications on file. * Agents No agents on file. * Blood No blood administrations on file. Lines, Drains, and Airways No LDAs on file. documented in this encounter Social History Tobacco UseTypesPacks/DayYears UsedDateSmoking Tobacco: Every GtvKberobodhe024 Started: 1972Smokeless Tobacco: NeverAlcohol UseStandard Drinks/WeekCommentsNot Currently0 (1 standard drink = 0.6 oz pure alcohol)Area Deprivation IndexAnswer Date RecordedNational Score (1-100), lower number is lower fida058703/10/2025State Score (1-10), lower number is lower onmt78105/10/2024Data from: https://www.neighborhoodatlas.medicine.[facility].edu/. Last address used for gtqrdjgys[address]03/10/2025CommentsNoSex and Gender InformationValueDate RecordedSex Assigned at BirthNot on fileLegal SexFemale 03/30/2012 10:19 AM ESTGender IdentityNot on fileSexual OrientationNot on file documented as of this encounter Plan of Treatment DateTypeDepartmentCare Team (Latest Contact Info)Chglyyrgnrv76/14/2026 11:45 AM ESTVisit (SP) Office Gynecology Oncology [address] [place] [address] [place] [address] Milly Cordoba MD [address] [place], [place] [phone] post opdocumented as of this encounter Visit Diagnoses Not on filedocumented in this encounter Care Teams Team MemberRelationshipSpecialtyStart DateEnd Date Shantle Norton NP [address] [place] [address] PCP - GeneralFamily Phtfqded75/24/25documented as of this encounter
--- OUTSIDE RECORDS SUMMARY | 2025-04-20 13:40 | XMS_ITS | Clinical Summary ---
Author Organization [facility] Address [address] [place] [address] Care Team Providers Care R Programmer Name Role Phone Sandra Lewis DO Primary Care Provider [phone] Allergies Active AllergyReactionsCriticalityNoted DateCommentsSulfa AntibioticsGI intolerance,Jwiytwg0011/25/2018 Medications MedicationSigDispense QuantityRefillsLast FilledStart DateEnd DateStatus Continuous Blood Gluc Sensor (Story of My LifeStyle Brent 14 Day Sensor) [facility] apply 1 SENSOR as directed every 14 days use with DEVICE to MONIT... (REFER TO PRESCRIPTION NOTES).12/21/2022ctive Toujeo SoloStar 300 UNIT/ML injection inject 20 units subcutaneously as kzcruegc05/16/2023ctive Droplet Pen Olalla 32G X 4 MM misc use 1 PEN NEEDLE to inject MEDICATION subcutaneously five times a day02/19/2022 Active omeprazole (PriLOSEC) [address] capsule 01/02/2023ctive Ozempic, 1 MG/DOSE, 4 MG/3ML solution pen-injector Administer 1mg subcutaneously once lmmzkr2512/10/2022ctive simvastatin (Zocor) 40 MG tablet Take 40 mg by mouth at fnusuqr3512/04/2022ctive Jardiance 25 MG take 1 tablet orally [...] Problems ProblemNoted DateDiagnosed DateWeakness of both lower wydtbivrysl65/10/2025 Overview (10/06/2024): --- multifactorial, including PN G62.9, [...] redo spinal surgery consult. TIA (transient ischemic attack)05/13/20242471Ndcugjseivofky00/10/2024 Assessment & Plan (04/07/2024 2:16 PM EST): Consult haematology. Cognitive gmzwegu4602/25/2024 Assessment & Plan (01/19/2025 4:35 PM EDT): (Continue current regimen.) Assessment & Plan (10/06/2024 2:30 PM EDT): (Continue current regimen.) Assessment & Plan (07/21/2024 3:08 PM EDT): (Continue current regimen.) Get [facility] records - neuro consults, EEG, MR, carotids, echo, discharge summary. Assessment & Plan (04/07/2024 2:16 PM EST): Pt to retry donepezil 15 qam (or 10/5). Assessment & Plan (02/25/2024 2:59 PM EDT): Add memantine 10 -> bid. Then add donepezil 10, titrate. Handout. Get MR images transferred to [facility] PACS for my review. 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 Assessment & Plan (01/19/2025 4:35 PM EDT): (Continue avoiding compression.) Assessment & Plan (10/06/2024 2:30 PM EDT): (Continue avoiding compression.) Assessment & Plan (07/21/2024 3:08 PM EDT): (Avoid compression.) Assessment & Plan (04/07/2024 2:16 PM EST): PO epefabue61/02/2024 Assessment & Plan (02/25/2024 2:43 PM EDT): Get Dr. Gonzalez's note (2nd request). Assessment & Plan (01/07/2024 1:44 PM EDT): Get rheum note. Assessment & Plan (12/12/2023 2:49 PM EDT): Consult Drs. Vang/Lisa - PO positive, titer increasing, but subtests neg. Known peripheral neuropathy, worsening. Get full set of labs ([facility]). We have some but not all - [...] will need neurosurgery consult. Adverse effect of alpha-rgupcvzaoy38/02/2024Vitamin E xctukdvnql76/02/2024 Assessment & Plan (11/29/2023 3:06 PM EDT): Add MVI (for Vitamin E). Or if already on MVI, add Vit E separately, 2/week. Chronic low back pain without nlxhcuyk97/10/1299Dsuzpatoqnd29/10/2024Cervical paraspinal muscle spasm10/29/2023 Assessment & Plan (01/19/2025 [...] to neck as well.) Carpal tunnel syndrome, zeybbfuyl92/02/2024 Overview (10/06/2024): --- causing hand weakness R29.898. [...] EDT): Restart splint use. ENMG BUE. (2nd) Jhhclwsjvdmaww48/02/2024 Assessment & Plan (11/29/2023 3:06 PM EDT): Pt reports 2nd PO is high 1:320 but I don't see it in the labs. Let's make sure we get this. May need rheumatology consult. Neuropathy panel II. Assessment & Plan (10/29/2023 3:17 PM EDT): Redo neurop panel. Diabetic peripheral ipioshgdlg34/02/5757W65 /02/2024 Assessment & Plan (01/19/2025 4:35 PM EDT): [...] are drawn. Redo B12 panel 8 w. Dfowallihbld00/02/2024Lumbar paraspinal muscle spasm10/29/2023 Assessment & Plan (01/07/2024 [...] 3:18 PM EDT): Myopathy panel. Leg pain, ualjprnxk33/02/2024 Assessment & Plan (10/29/2023 3:20 PM EDT): XR L-s 6 v. ENMG BLE. (First) Resolved Problems ProblemNoted DateDiagnosed DateResolved DateOSA (obstructive sleep apnea) Encounters DateTypeDepartmentCare GswzJvyzuunaktn67/02/2025Refill [facility] [address] [facility] [address] [place] [address] Luan Kincaid MD Neurogenic pain02/18/2025Telephone [facility] [address] [place] [address] Nereida Castro MD Biopsy (Appt needed )02/09/2025 12:30 PM EDTOffice Visit [facility] [address] [place] [address] Nereida Castro MD Encounter for gynecological examination; Vaginal zahvsm4602/09/20259761Kzmrtx07/14/2025Results Follow-Up [facility] [address] [place] [address] Nereida Castro MD MISCELLANEOUS SMEAR IHCPONCG76/09/2025Results Follow-Up [facility] [address] [place] [address] Nereida Castro MD Pathology Report, IGP, APT HPV,RFX 16/18,45, HPV Genotypes 16/18,45 Reflex 02/02/2025 1:30 PM EDTOffice Visit [facility] [address] [place] [address] Nereida Castro MD Encounter for gynecological examination; Vaginal lesion; Encounter for gynecological examination without abnormal finding; Encounter for screening for cervical cancer; Breast cancer screening by ottxglmcc56/07/2025Orders Only [facility] External Department Unsolicited Nereida Castro MD 02/02/20256849Ekwsnb98/30/2025Telephone [facility] [address] [place] [address] Nereida Castro MD 01/19/2025 4:00 PM EDTOffice Visit [facility] [address] [facility] [address] [place] [address] Luan Kincaid MD Weakness of both lower extremities (Primary Dx); Carpal tunnel syndrome, bilateral; Cognitive decline; Cervical paraspinal muscle spasm; B12 deficiency; Guyon syndrome, unspecified /23/2025amboo flowsheet [facility] [address] [place] [address] Luan Kincaid MD 01/19/2025Travelfrom Last 3 Months Family History Medical HistoryRelationNameCommentsMental illnessDaughterCancerFatherHeart diseaseFatherStrokeFatherHeart diseaseMotherHypertensionMotherStrokeMother DiabetesSiblingBipolar disorderSister 1DiabetesSonRelationNameStatusComments Brother 1AliveBrother 2AliveDaughterAliveFatherDeceasedMaternal Grandfather DeceasedMaternal GrandmotherDeceasedMotherDeceasedPaternal GrandfatherDeceased Paternal GrandmotherDeceasedSiblingAliveSister 1AliveSister 2AliveSonAlive Social History Tobacco UseTypesPacks/DayYears UsedDateSmoking Tobacco: Every ConIcfwcnksdo152 Started: 1973Smokeless Tobacco: Current Tobacco Cessation:Ready to Q uit: Not Asked; Counseling Given: Not Answered Comments:Smokes 11-20 cigs per day Alcohol UseStandard Drinks/WeekCommentsNever0 (1 standard drink = 0.6 oz pure alcohol)caffeine intake: occasionalCommentsNoSex and Gender Information ValueDate RecordedSex Assigned at BirthNot on fileLegal JtsUxtoux80/15/2023 8:02 PM EDTGender IdentityNot on fileSexual OrientationNot on file Last Filed Vital Signs Vital SignReadingTime TakenCommentsBlood Tmpzlqgf324/7410 12:41 PM EDT Fzcii2097 1:55 PM EDTTemperature--Respiratory Rate--Oxygen Saturation-- Inhaled Oxygen Concentration--Tupovp13 kg (194 lb)02/09/2025 12:41 PM EDTHeight 170.2 cm (5' 7 )02/02/2025 1:19 PM EDTBody Mass Index30.381 1:19 PM EDT Plan of Treatment DateTypeDepartmentCare Team (Latest Contact Info)Idqhtohblyt98/24/2026 4:00 PM EDTOffice Visit [facility] [address] [place] [address] Luan Kincaid MD [address] [facility] [address] [place] [address] 08/10/2025 1:15 PM EDTOffice Visit [facility] [address] [place] [address] Nereida Castro MD [address] [place], [place] [address] Procedures Procedure NamePriorityDate/TimeAssociated DiagnosisCommentsPATHOLOGY REPORT Wrsrxoh9402/02/2025 2:47 PM EDT Vaginal lesion HPV GENOTYPES 16/18,45 LDDVLBDndibob66/07/2025 12:00 AM EDT MISCELLANEOUS SMEAR MRXHHIUGPvqsubc23/07/2025 12:00 AM EDT IGP, APT HPV,RFX 16/18,80Tfdltqw16/07/2025 12:00 AM EDT Encounter for gynecological examination without abnormal finding Encounter for screening for cervical cancer from Last 3 Months Results * Pathology Report (02/02/2025 2:47 PM EDT)ComponentValueRef RangeTest Method Analysis TimePerformed AtPathologist SignatureMaterial Submitted:Comment [facility]PComment: Material submitted: ?. vulva - VULVA Clinician Provided JSA24VpbwmisSQTSTVMOejmfev: Clinician provided ICD-10: N89.8 Diagnosis:CommentLABCORPComment: Diagnosis: VULVA, [...] CASSETTE. MZH/BXS ??02/03/2025 ??1504 Local Pathologist Provided MMW37XvehsnnRYMVAMCGowtzhe: Pathologist provided ICD-10: N90.89 CPTCommentLABCORPComment: CPT ?. [id number] Specimen (Source)Anatomical Location / LateralityCollection Method / Volume Collection TimeReceived TimeOtherTopography unknown / Dokrboh9202/02/2025 2:47 PM EDT1omment:Other Vulva Print requ Narrative [facility] - 02/04/2025 10:07 AM EDT Performed at: 01 - [facility] [address] [place] [address] ??[id number] Shipping/Receiving Clerk: Kemar Bella MD, Phone: ??[phone] Performed at: ??02 - [address] ??[id number] Shipping/Receiving Clerk: Jason Nation MD, Phone: ??[phone] Performed at: ??03 - [facility] [address] [place] [address] ??[id number] Shipping/Receiving Clerk: Kemar Bella MD, Phone: ??[phone] Specimen Comment: [id number] Specimen Comment: No. of containers..01 Tissue Authorizing [...] by:CommentLABCORPComment:Eldon Madera MD, PathologistPerformed by:Comment LABCORPComment:Carmelita Reese, Media Account Executive ([facility])Gross description:Comment LABCORPComment: 20ML, LT WHITE, CLOUDY /LCS ??02/05/2025 ??0740 Local Specimen (Source)Anatomical Location / LateralityCollection Method / Volume Collection TimeReceived Time51 Narrative [facility] - 02/08/2025 1:07 PM EDT Performed at: 01 - [facility], [place] ??[id number] Shipping/Receiving Clerk: Savi Cai MD, Phone: ??[phone] Specimen Comment: No. of containers..01 ThinPrep Vial [...] ICD10:CommentLABCORP Comment: Z01.419 Z12.4 Performed By:CommentLABCORPComment:Jolly Kennedy, Media Account Executive ([facility]) Electronically Signed By:CommentLABCORPComment:Valery Varela MD, Pathologist Cyto [...] 8:07 PM EDT Performed at: 01 - [facility] ??[id number] Shipping/Receiving Clerk: Savi Cai MD, Phone: ??[phone] Performed at: ??02 - Lab[address] ??[id number] Shipping/Receiving Clerk: Savi Cai MD, Phone: ??[phone] Specimen Comment: Source.............Cervix Specimen Comment: No. of [...] 8:07 PM EDT Performed at: 02 - [facility] [address] ??[id number] Shipping/Receiving Clerk: Savi Cai MD, Phone: ??[phone] Authorizing ProviderResult TypeResult StatusNereida Castro MDLAB CYTOLOGY ORDERABLESFinal ResultPerforming OrganizationAddressCity/State/ZIP CodePhone Number [facility] from Last 3 Months Insurance Care Teams Team MemberRelationshipSpecialtyStart DateEnd Sandra Lewis DO [address] [facility] [place] [address] PCP - GeneralFamily Medicine10/15/24
--- OUTSIDE RECORDS SUMMARY | 2025-04-20 13:40 | XMS_ITS | Clinical Summary ---
Author Organization [facility] Address [address] [place] [address] Phone Care Team Providers Care Photogeologist Name Role Phone Shantel Norton APRN-SCREEDMAN Primary Care Pro vider Allergies Active AllergyReactionsCriticalityNoted DateCommentsSulfa (Sulfonamide Antibiotics)GI intolerance,Unknown,Nausea/fnalhasy07/30/2019 Medications MedicationSigDispense QuantityRefillsLast FilledStart DateEnd DateStatus semaglutide [...] Problems ProblemNoted DateDiagnosed DateObesity (BMI 30-39.9)12/16/2023Typical atrial cppyaqv8810/07/2023Nonischemic fqalwuarqdegdl69/10/6965Wknuzruu55/21/2024 Overview (09/17/2023): Last Assessment & Plan: Assessment: on Actos, metformin and Humalog. States BG in Am 110-140, Last A1C- 6.5 Ncimsifsawoscmdzfy01/21/2024 Overview (09/17/2023): Last Assessment & Plan: Assessment: on statin Ppspfvwfgpzq74/21/2024 Overview (09/17/2023): Last Assessment & Plan: Assessment: controlled on Lisinopril Current jxmjvv6909/17/2023 Overview (09/17/2023): Last Assessment & Plan: Assessment: Current 40 pack year Resolved Problems ProblemNoted DateDiagnosed DateResolved DateHigh risk medication use11/13/2023 5BMI 28.0-28.9,adult/ Encounters DateTypeDepartmentCare IldlBoxylhzvwun24/13/2025Refill [facility] [address] [place] [phone] Roland Faust MD Shortness of breath; Edema, unspecified type03/26/2025Telephone [facility] [address] [place] [phone] Tabatha Patiño RN 02/11/2025Refill [facility] [address] [place] [phone] Roland Faust MD Hypertension, unspecified type; Nonischemic cardiomyopathy (Multi)from Last 3 Months Family History Medical HistoryRelationNameCommentscabgFatherHeart failureMotherheart stent MotherRelationNameStatusCommentsFatherMother Social History Tobacco UseTypesPacks/DayYears UsedDateSmoking Tobacco: Every DayCigarettes Smokeless Tobacco: Never Tobacco Cessation:Ready to Q uit: No; Counseling Given: Yes Alcohol UseStandard Drinks/WeekCommentsNever0 (1 standard drink = 0.6 oz pure alcohol)CommentsUnknownSex and Gender InformationValueDate RecordedSex Assigned at BirthNot on fileLegal ZgmWwzdeh68/02/2023 3:01 AM EDTGender Identity Not on fileSexual OrientationNot on file Last Filed Vital Signs Vital SignReadingTime TakenCommentsBlood Bwqcalnu395/7009 1:47 PM EDT Stsbt8586/03/2025 1:47 PM EDTTemperature--Respiratory Rate--Oxygen Saturation-- Inhaled Oxygen Concentration--Grsxmo66.4 kg (197 lb)12/30/2024 1:47 PM EDTHeight 170.2 cm (5' 7 )12/30/2024 1:47 PM EDTBody Mass Index30.85012/30/2024 1:47 PM EDT Plan of Treatment DateTypeDepartmentCare Team (Latest Contact Info)Gqmjrjwuafe45/21/2026 3:10 PM EDTOffice Visit at [facility] [address] [facility] [address] [place] [address] Roland Faust MD [address] [place] [address] Health MaintenanceDue DateLast DoneCommentsCT Moegopriequr65/30/1958Colonoscopy 1957Colorectal Cancer Ullzuowxj37/30/1958Diabetes: Hemoglobin A1C 1957Diabetes: Urine Protein Mnsjzpbrd50/30/1958FIT-DNA (Cologuard) 1957FIT1957Lipid Panel1957Medicare Annual Wellness Visit (AWV) 1957 0260Pirsvqutzsqps79/30/1958Diabetes: Retinopathy Fmhgmehha26/30/1968 Hepatitis C Ziyyhrbfb90/30/1976Pneumococcal Vaccine (1 of 2 - PCV)1976 DTaP/Tdap/Td Vaccines (1 - Tdap)11/26/1979RSV High Risk: (Elderly (60+) or Population) (1 - Risk 50-74 years 1-dose series)11/26/2007Zoster Vaccines (1 of 2)11/26/20071456Tpuzzupos48/12/202202/1Bone Density Scan 2022TSH Level/03/2024COVID-19 Vaccine (1 - 5-26 season) 2024Influenza Vaccine (#1)2024MMR GkxbxsvqFumpjptag13/05/2002HIB VaccinesAged OutNo longer eligible based on patient's [...] Teams Team MemberRelationshipSpecialtyStart DateEnd Date Shantel Norton APRN-SCREEDMAN [address] [place] [address] PCP - GeneralFamily Medicine12/30/24
--- OUTSIDE RECORDS SUMMARY | 2025-04-20 13:40 | XMS_ITS | Encounter Summary ---
Author Organization [facility] Address [address] [place] [id number] Care Team Providers Care Pot Filler Name Role Phone Shantel Norton MOTOR VEHICLE ESCORT DRIVER Primary Care Provider Source Comments In the event this information is protected by the Federal Confidentiality of Alcohol and Drug AbusePatient Records regulations: The Federal rules restrict any use of the information to criminally investigate or prosecute any alcohol or drug abuse patient.[facility] Reason for Visit * ReasonCommentsRadiology XR Encounter Details DateTypeDepartmentCare Team (Latest Contact Info)Kvxmsyiukwm13/12/2025Radiology Radiology [address] [place], [place] [phone] Concepción Devries, RT(R) Radiology XR Social History Tobacco UseTypesPacks/DayYears UsedDateSmoking Tobacco: Every KukCfnychxptq037 Started: 1974Smokeless Tobacco: NeverAlcohol UseStandard Drinks/WeekCommentsNot Currently0 (1 standard drink = 0.6 oz pure alcohol)Area Deprivation IndexAnswer Date RecordedNational Score (1-100), lower number is lower ijdw996703/10/2025State Score (1-10), lower number is lower yrql74705/10/2024Data from: https://www.neighborhoodatlas.medicine.[facility].edu/. Last address used for mxfifscfmbs[address] [facility]03/10/2025CommentsNoSex and Gender InformationValueDate RecordedSex Assigned at [...] PATIENT PRESENTS WITH AN IMPLANTABLE OR ATTACHED SILVICULTURE FORESTER: No RADIOLOGY DEPARTMENT: General X-ray: Exam(s) Completed: Chest X-Ray PERIPHERAL IV DATA: Not applicable SIGNED BY: RT Rani(R) April 09, 2025 1:31 PM documented in this encounter Plan of Treatment DateTypeDepartmentCare Team (Latest Contact Info)Sindqbgoepf65/14/2026 11:45 AM ESTVisit (SP) Office Gynecology Oncology [address] [place] [address] [place] [address] Milly Cordoba MD [address] [place] [address] post opdocumented as of this encounter Visit Diagnoses Not on filedocumented in this encounter Care Teams Team MemberRelationshipSpecialtyStart DateEnd Date Shantel Norton NP [address] [place] [phone] PCP - GeneralFamily Ebzvlohy72/24/25documented as of this encounter
--- OUTSIDE RECORDS SUMMARY | 2025-04-20 13:40 | XMS_ITS | Patient Health Record ---
Author Organization [facility] Address [address] [place] [address] Care Team Providers Care Rn Womens Health Name Role Phone Dr. Edgar Garcia Primary Care Provider Reason For Referral No Information Plan Of Treatment No Information Insurance Providers Payer Name Payer Address Payer Phone Subscriber Number Group Number Insured Name Patient Relationship to Insured Coverage Start Date Coverage End Date MEDICARE CGS [address] [place] [phone] [id number] PRITI Rm - patient is the [id number] 2020MEDICAID SEC TO [facility] [address] [place] [id number], CINDYSelf - patient is the [id number] 2020ENTAL MEDICAID [place] [address] [place] [address] [phone], CINDYSelf - patient is the [id number] 2020
--- OUTSIDE RECORDS SUMMARY | 2025-04-20 13:40 | XMS_ITS | Clinical Summary ---
Author Organization [facility] Address [address] [place], [place] [address] Care Team Providers Care Patient Appointment Coordinator Name Role Phone Shantel Norton GUZZLER BUILDER Primary Care Provider Allergies Active AllergyReactionsCriticalityNoted DateCommentsSulfa (Sulfonamide Antibiotics)Tuwfdemg25/30/2019 Medications MedicationSigDispense QuantityRefillsLast FilledStart DateEnd DateStatus cyanocobalamin [...] 1 applicatorful vaginally once daily for 7 aqlk699Active insulin lispro sliding scale 1 (HUMALOG) Inject [...] a day.07/03/2024tive apixaban (ELIQUIS) 5 mg tab(s) .NALYAMJ15/14/2024Active carvedilol (COREG) 12.5 mg tablet Take 12.5 mg by mouth./6Active donepezil (ARICEPT) 10 mg tablet Take 20 mg by mouth every morning.Active JARDIANCE 25 mg tablet Take 25 mg by mouth once daily.Active EPINEPHrine (EPIPEN) 0.3 mg/0.3 mL auto-injector [id number] 0.3 ml EPINEPHrine 1 mg/ml auto-injector (5 [...] PM EST): Assessment: Controlled with PPI Atrial uahipfo4504/09/2025 Assessment & Plan (04/09/2025 12:27 PM EST): [...] Assessment: Does not use CPAP Anxiety and iorormqoin89/12/2025 Assessment & Plan (04/09/2025 12:51 PM EST): Assessment: Controlled with SSRI Diabetic ulcer of right foot associated with type 2 diabetes zmcjizns98/12/2025 Assessment & Plan (04/09/2025 1:14 PM EST): [...] Assessment: Current 40 pack year Encounters DateTypeDepartmentCare LkxfWlaqemifwmm77/19/2025 11:59 PM ESTAnesthesia Event [facility] Operating Room [address] [place] [address] Alejandra Willis AA Student 04/12/2025Results Follow-Up Gynecology Oncology [address] [place] [address] Sarah Coto, VEHICLE OPERATOR TECHNICIAN.LOCK CORNER MACHINE OPERATOR 04/12/2025Telephone Pre Anesthesia [address] [place] [address] Reyna Smart, VEHICLE OPERATOR TECHNICIAN.LOCK CORNER MACHINE OPERATOR Anesthesia Wgxjouu5804/09/2025 1:07 PM EST - 04/09/2025 11:59 PM ESTHospital Encounter Radiology [address] [place] [address] 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] Discharge Disposition: Home04/09/2025 12:20 PM ESTPAT Pre Anesthesia [address] [place] [address] 1, Pacc [place] Pre-op evaluation (Primary Dx); Hypercholesteremia; Primary hypertension; Gastroesophageal reflux disease, unspecified whether esophagitis present; Atrial flutter, unspecified type (HCC); MCI (mild cognitive impairment); BOSTON (obstructive sleep apnea); Anxiety and depression; Type 2 diabetes mellitus with other specified complication, unspecified whether retirement insulin use (HCC); Smoker; Diabetic ulcer of right foot associated with type 2 diabetes mellitus, unspecified part of foot, unspecified ulcer stage (HCC)04/09/2025Radiology Radiology [address] [place] [address] Concepción Devries, RT(R) Radiology XR04/01/2025Telephone Pre Anesthesia [address] [place] [address] Jessica Boone, VEHICLE OPERATOR TECHNICIAN.LOCK CORNER MACHINE OPERATOR Missed Kchdryyfldj25/03/4716Xzdclv05/02/2025Telephone Gynecology [address] [place] [address] Julita Soliz, RN Pre-Op Omtpkbbc62/13/2025Telephone Obstetrics/Gynecology [address] [address] Milly Antonio MD Schedule Ccagfzx1603/10/2025 11:00 AM ESTVisit (SP) Office Gynecology Oncology [address] [place] [address] [place] [address] Milly Antonio MD Condyloma acuminatum (Primary Dx); Low grade squamous intraepithelial lesion on cytologic smear of vagina (LGSIL); HPV in female; Pre-op testing; Other urinary ucgaizbhshzo26/12/5245Keyrae39/Telephone [facility] [address] [place] [address] Milly Antonio MD 02/10/2025Lab Requisition [facility] [address] [place] [address] Milly Antonio MD Person encountering health services to consult on behalf of another person 02/04/2025Telephone [facility] [address] [place] [address] Milly Antonio MD from Last 3 Months Family History Medical HistoryRelationCommentsCancerFatherHeart diseaseFatherStrokeFatherHeart diseaseMotherHypertensionMotherStrokeMotherDiabetesSisterRelationStatusComments FatherDeceasedMaternal GrandfatherDeceasedMaternal GrandmotherDeceasedMother DeceasedPaternal GrandfatherDeceasedPaternal GrandmotherDeceasedSister Social History Tobacco UseTypesPacks/DayYears UsedDateSmoking Tobacco: Every PbeUtyvmkfnwo156 Started: 1972Smokeless Tobacco: Never Tobacco Cessation:Ready to Q uit: Not Asked; Counseling Given: Not Answered Alcohol UseStandard Drinks/WeekCommentsNot Currently0 (1 standard drink = 0.6 oz pure alcohol)Area Deprivation IndexAnswerDate RecordedNational Score (1-100), lower number is lower qbiz874503/10/2025State Score (1-10), lower number is lower yoir44805/10/2024Data from: https://www.neighborhoodatlas.medicine.[facility].edu/. Last address used for yxcugenatms[address] [facility]03/10/2025CommentsNoSex and Gender InformationValueDate RecordedSex Assigned at BirthNot on fileLegal Sex Igesmb9403/30/2012 10:19 AM ESTGender IdentityNot on fileSexual OrientationNot on file Last Filed Vital Signs Vital SignReadingTime TakenCommentsBlood Nccvxxwo24/5804/09/2025 12:22 PM EST Fjtif163504/09/2025 12:22 PM LKADtnkvljxhrc25.7 ??C (98.1 ??F)04/09/2025 12:22 PM ESTRespiratory Qkni164106/10/2024 12:22 PM ESTOxygen Mitxhbursm50%04/09/2025 12:22 PM ESTInhaled Oxygen Concentration--Glribu57 kg (189 lb 9.5 oz)04/09/2025 12:22 PM XUZYkdxnx515.2 cm (5' 7 )04/09/2025 12:22 PM ESTBody Mass Index29.69 04/09/2025 12:22 PM EST Plan of Treatment DateTypeDepartmentCare Team (Latest Contact Info)Kgvtgheinid81/14/2026 11:45 AM ESTVisit (SP) Office Gynecology Oncology [address] [place] [address] [place] [address] Milly Antonio MD [address] [place] [address] post opHealth MaintenanceDue DateLast DoneCommentsDiabetic Foot Exam11/26/1967 Dilated Retinal Exam11/26/1967Urine Albumin:Creatinine Ratio11/26/1967Annual PCP Team Chronic Disease Visit11/26/1975Hepatitis C Jarircopf57/30/1976LDL Umsqbgrbjqk82/30/1976DTaP,Tdap,Td Vaccine (1 - Tdap)1976Pneumococcal Vaccine: 50+ (1 of 2 - PCV)1976CT Jiceugnvpudk80/30/2003Cologuard (FIT-DNA)11/25/20028388Gjsmefmxskg54/30/2003Colorectal Cancer Lcungdvhd30/30/2003 Fecal Occult Blood11/25/20021611Kqvqgsrisxuus11/30/2003Lung Cancer Screening 11/26/2007RSV Vaccine (1 - Risk 50-74 years 1-dose series)11/26/2007Shingrix Vaccine (1 of 2)11/26/2007Mammogram Pkllfhhui10/03/2021, 05/11/2019, 05/11/2019, Additional history existsBone Density Pbgfmhnez24 Advance Directive Uszlghtzql10/01/2025Medicare Advantage Annual Wellness Visit 5Covid-19 Vaccine ( - 2025-26 season)2024Influenza Vaccine (#1) 12/28/20245440CwX3U70/6106/10/2024, 10/30/2023 Procedures Procedure NamePriorityDate/TimeAssociated DiagnosisCommentsXR CHEST 2V FRONTAL/WPNSgupqtl51/12/2025 1:35 PM EST HPV in female Pre-op testing HEMOGLOBIN M1DVecxrnm25/12/2025 1:32 PM EST Pre-op evaluation ECG NUVBXKUQ67/12/2025 12:46 PM EST TYPE + SCREEN,30 RTPQpdhiqz58/12/2025 12:12 PM EST Pre-op testing COMPLETE BLOOD XKBUVZajdinu51/12/2025 12:12 PM EST Pre-op testing COMPREHENSIVE METABOLIC ZJDYWKugmhmz54/12/2025 12:12 PM EST Pre-op testing EXTERNAL LAB02/12/2025 8:39 AM EDT EXTERNAL LAB02/12/2025 8:39 AM EDT EXTERNAL LAB02/12/2025 8:39 AM EDT OUTSIDE SURG PATH SLIDE GAOWXVHmsszag39/15/2025 10:21 PM EDT Person encountering health services to consult on behalf of another person PT ED OBSTETRICS & XLUFANZUSB32/14/2025 EXTERNAL LAB02/04/2025 2:41 PM EDT from Last 3 Months Results * XR CHEST 2V FRONTAL/LAT (04/09/2025 1:35 PM EST)Anatomical RegionLaterality ModalityChestOtherSpecimen (Source)Anatomical Location / LateralityCollection Method / VolumeCollection TimeReceived Time04/09/2025 1:35 PM EST Impressions 04/12/2025 7:51 AM EST IMPRESSION: No acute cardiopulmonary process. Property Preservation Specialist: DANK ?? Transcribe Date/Time: Apr 12 2025 [...] ??Pulmonary vasculature is unremarkable. Procedure Note Provider, [facility] [place] - 04/12/2025 * * *Final Report* * [...] isunremarkable. IMPRESSION IMPRESSION: No acute cardiopulmonary process. Property Preservation Specialist: DANK Transcribe Date/Time: Apr 12 2025 7:43A Dictated by : VIRAL PENNY MD This examination was interpreted and the report reviewed and electronically signed by: VIRAL PENNY MD on Apr 12 2025 7:49AM EST Authorizing ProviderResult TypeResult StatusSuzanne Surovec VEHICLE OPERATOR TECHNICIAN.CNPRAD-PAMA Final Result * (ABNORMAL) HEMOGLOBIN A1C (04/09/2025 1:32 PM EST)ComponentValueRef RangeTest MethodAnalysis TimePerformed AtPathologist SignatureHemoglobin A1C8.4(H)4.3 - 5.6 %04/11/2025 8:54 AM [facility] LABComment:[place] Diabetes Association guidelines indicate that patients with HgbA1c in the range 5.7- 6.4% are at increased risk for development of diabetes, and intervention by lifestyle modification may be beneficial. HgbA1c greater or equal to 6.5% is considered diagnostic of diabetes.Estimated Average Vdmenzz650cw/dL04/11/2025 8:54 AM [facility] LABComment:eAG: (Estimated average glucose) is a calculated value from HgbA1c and is customer care representative of the average blood glucose level in the last 2-3 month period.Specimen (Source)Anatomical Location / LateralityCollection Method / VolumeCollection TimeReceived Time BloodBLOOD SPECIMEN / UnknownVenipuncture / Qtbmqdm1904/09/2025 1:32 PM EST 04/09/2025 1:33 PM EST Narrative Authorizing ProviderResult TypeResult StatusKaitmely Smart VEHICLE OPERATOR TECHNICIAN.CNPLABORATORY Final ResultPerforming OrganizationAddressCity/State/ZIP CodePhone Number [facility] [address] * ECG COMPLETE (04/09/2025 12:46 PM EST)ComponentValueRef RangeTest Method Analysis TimePerformed AtPathologist SignatureVentricular Cjrm97FKVASHDX AND VASCULAR INSTITUTEAtrial Lfrp64BQLEPKMT AND VASCULAR INSTITUTEP-R Vxcvlaxa197 msHEART AND VASCULAR INSTITUTEQRS Vkbmngek32pwTCHDO AND VASCULAR INSTITUTEQT Aylrtxjq683cyUXPGH AND VASCULAR INSTITUTEQTC Calculation (Bazett)447msHEART AND VASCULAR INSTITUTECalculated P Dhma74qiyofvhSJRPR AND VASCULAR INSTITUTE Calculated R Cdqt61ccldzaaFGXAO AND VASCULAR INSTITUTECalculated T Axis33 degreesHEART AND VASCULAR INSTITUTESpecimen (Source)Anatomical Location / LateralityCollection Method / VolumeCollection TimeReceived Time04/09/2025 12:46 PM EST Impressions [facility] - 04/10/2025 8:41 AM EST NORMAL SINUS RHYTHM NORMAL ECG Confirmed by Julia PHILLIPS RAVISANKAR ([id number]) on 04/10/2025 8:41:00 AM Narrative [facility] - 04/10/2025 8:41 AM EST NAME : KERRY MARCOS PID : [id number] : 1955 Gender : Female Race : [...] Performing OrganizationAddressCity/State/ZIP CodePhone Number [facility] [address] [place] [address] * TYPE AND SCREEN,30 DAY (03/10/2025 12:12 PM EST)ComponentValueRef RangeTest MethodAnalysis TimePerformed AtPathologist OmcvhfbgkIFPG37/12/2025 5:51 PM EST [facility] MAIN LABRh(D)Ewksbjgg29/12/2025 5:51 PM ESTCHILLICOT[facility] MAIN LABAntibody NvjudoYsmjcubg24/12/2025 5:51 PM [facility]CH[facility] Specimen (Source)Anatomical Location / LateralityCollection Method / Volume Collection TimeReceived TimeBloodBLOOD SPECIMEN / UnknownVenipuncture / Eehiarm5003/10/2025 12:12 PM EST03/10/2025 12:12 PM EST Narrative Authorizing ProviderResult TypeResult StatusMichelnikolai Antonio MDOOD BANK Final ResultPerforming OrganizationAddressCity/State/ZIP CodePhone Number [facility] [address] [place] [address], * (ABNORMAL) COMPREHENSIVE METABOLIC PANEL (03/10/2025 12:12 PM EST)Component ValueRef RangeTest MethodAnalysis TimePerformed AtPathologist Signature Protein, Total7.56.3 - 8.0 g/dL03/10/2025 12:34 PM [facility] LABAlbumin4.23.9 - 4.9 g/dL03/10/2025 12:34 PM [facility] LABCalcium, Total10.4(H)8.5 - 10.2 mg/dL03/10/2025 12:34 PM [facility] LABBilirubin, Total0.40.2 - 1.3 mg/dL03/10/2025 12:34 PM [facility] LABAlkaline Vjfcqdemspf51703 - 123 U/L105/10/2024 12:34 PM [facility] DBOPBQ8613 - 35 U/L105/10/2024 12:34 PM [facility] ELGWEE113 - 38 U/L105/10/2024 12:34 PM [facility] LKYSkwsbuv663(H)74 - 99 mg/dL03/10/2025 12:34 PM [facility] LABComment: The [place] Diabetes Association (ADA) provides guidance for cutoff [...] Standards of Medical Care in Diabetes 2016, [place] Diabetes Association. Diabetes Care. 2016.39(Suppl 1). BUN87 - 21 mg/dL03/10/2025 12:34 PM [facility] LAB Creatinine0.890.58 - 0.96 mg/dL03/10/2025 12:34 PM [facility] IRLEbfepf462329 - 144 mmol/L105/10/2024 12:34 PM [facility] LABPotassium5.03.7 - 5.1 mmol/L105/10/2024 12:34 PM [facility] QMUGfzvwjyu5649 - 107 mmol/L105/10/2024 12:34 PM EST [facility] WOBDA402(H)22 - 30 mmol/L105/10/2024 12:34 PM [facility] LABAnion Gap98 - 15 mmol/L105/10/2024 12:34 PM [facility] LABEstimated Glomerular Filtration Rate 71>=60 mL/min/1.73m 03/10/2025 12:34 PM [facility] LABComment:Estimated Glomerular Filtration Rate (eGFR) is [...] VolumeCollection TimeReceived TimeBloodBLOOD SPECIMEN / UnknownVenipuncture / Emwhqpj0603/10/2025 12:12 PM EST03/10/2025 12:12 PM EST Narrative Authorizing ProviderResult TypeResult StatusMichelnikolai Antonio MDLABORATORY Final ResultPerforming OrganizationAddressCity/State/ZIP CodePhone Number [facility] [address] [place] [address] * (ABNORMAL) COMPLETE BLOOD COUNT (03/10/2025 12:12 PM EST)ComponentValueRef RangeTest MethodAnalysis TimePerformed AtPathologist SignatureWBC9.123.70 - 11.00 k/uL03/10/2025 12:14 PM [facility]BR[facility] LABRBC5.37 (H)3.90 - 5.20 m/uL03/10/2025 12:14 PM [facility] TFZGklzddnllj37.8(H)11.5 - 15.5 g/dL03/10/2025 12:14 PM [facility] UNQHwlyuiyrtx56.2(H)36.0 - 46.0 %03/10/2025 12:14 PM EST [facility] BDSGPQ28.380.0 - 100.0 fL03/10/2025 12:14 PM [facility] SBVGIG66.326.0 - 34.0 pg03/10/2025 12:14 PM [facility] XCNGYSU69.830.5 - 36.0 g/dL03/10/2025 12:14 PM [facility] LABRDW-CV13.511.5 - 15.0 % 03/10/2025 12:14 PM [facility] LABPlatelet Gywsj381 150 - 400 k/uL03/10/2025 12:14 PM [facility] LABMPV 11.79.0 - 12.7 fL03/10/2025 12:14 PM [facility] LAB Absolute nRBC<0.01<0.01 k/uL03/10/2025 12:14 PM [facility] LABSpecimen (Source)Anatomical Location / LateralityCollection Method / VolumeCollection TimeReceived TimeBloodBLOOD SPECIMEN / UnknownVenipuncture / Zckcyrt7203/10/2025 12:12 PM EST03/10/2025 12:12 PM EST Narrative Authorizing ProviderResult TypeResult StatusMichelnikolai Antonio MDLABORATORY Final ResultPerforming OrganizationAddressCity/State/ZIP CodePhone Number [facility] [address] [place] [address] * EXTERNAL LAB (02/12/2025 8:39 AM EDT) Only the most recent of4 resultswithin the time period is included. Narrative Authorizing ProviderResult TypeResult StatusExternal Provider PA-CLABORATORY Final Result * OUTSIDE SURG PATH SLIDE REVIEW (02/10/2025 10:21 PM EDT)ComponentValueRef RangeTest MethodAnalysis TimePerformed AtPathologist SignatureCase Report Surgical Pathology Report ? Case: [id number] ? Authorizing Provider: ??Milly Antonio MD Collected: ? 02/10/2025 10:21 PM ? Ordering Location: ? [facility] ?Received: ?02/10/2025 10:19 PM ? [facility] ? Pathologist: ? Stacy Hassan MD ? Specimen: ?Slide(s), 2 SLIDES ([id number]) ? 02/11/2025 3:16 PM [facility] LABFINAL DIAGNOSISReview of outside slides Vulva, biopsy: Consistent with condyloma.02/11/2025 3:16 PM [facility] LAB at 1516 EDT Performing LabDiagnostic interpretation performed at: [facility], [address] [place] [address] CLIA# [id number] Paving Machine Operator: Rudi Turner MD 02/11/2025 3:16 PM EDTCUNIVERS[facility] LABDisclaimerLaboratory Developed Test (LDT) Disclaimer: Performance characteristics of immunohistochemical, immunofluorescent, and chromogenic in-situ hybridization tests have been determined by the performing laboratory within the [facility] Department of Pathology and Laboratory Medicine ([facility], [facility], [facility], [facility], [facility], [facility], or [facility]) in a manner consistent with CLIA requirements. One or more of these tests may not have been cleared or approved by the FDA. The [facility] Department of Pathology and Laboratory Medicineis regulated under CLIA as qualified to perform high-complexity testing. These tests are used for clinical purposes. These should not be regarded as investigational or for research. Positive and negative controls stain appropriately.02/11/2025 3:16 PM EDT [facility] LABSpecimen (Source)Anatomical Location / Laterality Collection Method / VolumeCollection TimeReceived TimeBlocks or SlidesMICROSCOPE SLIDE / Cwzmxxc2602/10/2025 10:21 PM EDT1 10:19 PM EDT Narrative Authorizing ProviderResult TypeResult StatusMicmonalisa Antonio MDSURGICAL PATHOLOGYFinal ResultPerforming OrganizationAddressCity/State/ZIP CodePhone Number [facility] [address] [place] [address], * PT ED OBSTETRICS & GYNECOLOGY (02/09/2025)Specimen (Source)Anatomical Location / LateralityCollection Method / VolumeCollection TimeReceived Time02/09/2025 Narrative DANNY - 03/12/2025 Provider PACO your patient KERRY PRITI has not started their Danny program, time has . Danny program: [facility] WHAT TO EXPECT AT YOUR APPOINTMENT Authorizing ProviderResult TypeResult StatusMicmonalisa Antonio MDEMMIFinal ResultPerforming OrganizationAddressCity/State/ZIP CodePhone Number DANNY from Last 3 Months Insurance Care Teams Team MemberRelationshipSpecialtyStart DateEnd Date Shantel Norton NP [address] [place] [address] PCP - GeneralFatnly Tbbhnbub42/24/25
--- OUTSIDE RECORDS SUMMARY | 2025-04-20 13:40 | XMS_ITS | Encounter Summary ---
Author Organization [facility] Address [address] [place] [address] Care Team Providers Care Compliance Consultant Name Role Phone Shantel Norton BOTTLING LINE OPERATOR Primary Care Provider Source Comments In the event this information is protected by the Federal Confidentiality of Alcohol and Drug AbusePatient Records regulations: The Federal rules restrict any use of the information to criminally investigate or prosecute any alcohol or drug abuse patient.[facility] Encounter Details DateTypeDepartmentCare Team (Latest Contact Info)Voldzvgyqzt24/15/2025Results Follow-Up Gynecology Oncology [address] [place] [id number] Sarah Coto, CHEMICAL TECHNICIAN.EQUIPMENT OPERAT0R [address] [id number] Social History Tobacco UseTypesPacks/DayYears UsedDateSmoking Tobacco: Every JucRnohutglez814 Started: 1972Smokeless Tobacco: NeverAlcohol UseStandard Drinks/WeekCommentsNot Currently0 (1 standard drink = 0.6 oz pure alcohol)Area Deprivation IndexAnswer Date RecordedNational Score (1-100), lower number is lower spvm931503/10/2025State Score (1-10), lower number is lower konv08105/10/2024Data from: https://www.neighborhoodatlas.medicine.[facility].edu/. Last address used for c[address] Nlgsqz9803/10/2025CommentsNoSex and Gender InformationValueDate RecordedSex Assigned at BirthNot on fileLegal SexFemale 03/30/2012 10:19 AM ESTGender IdentityNot on fileSexual OrientationNot on file documented as of this encounter Plan of Treatment DateTypeDepartmentCare Team (Latest Contact Info)Rfxhwlsuzwr76/14/2026 11:45 AM ESTVisit (SP) Office Gynecology Oncology [address] [place] [address] [place] [address] Milly Cordoba MD [address] [place] [address] post opdocumented as of this encounter Visit Diagnoses Not on filedocumented in this encounter Care Teams Team MemberRelationshipSpecialtyStart DateEnd Date Shantel Norton NP [address] [place] [address] PCP - GeneralFamily Ptickpmc14/24/25documented as of this encounter
--- OUTSIDE RECORDS SUMMARY | 2025-04-20 13:40 | XMS_ITS | Encounter Summary ---
Author Organization [facility] Address [address] [place] [address] Phone Care Team Providers Care Mold Shop Supervisor Name Role Phone Kimberly Nortonfer Rebecca FREEDMAN Primary Care Pro vider Reason for Visit * ReasonCommentsMed Refill Encounter Details DateTypeDepartmentCare Team (Latest Contact Info)Yybuzibsulg26/13/2025Refill at [facility] [address] [place] [phone] Roland Faust MD [address] [place] [address] [address], [address] [address] Shortness of breath; Edema, unspecified type Social History Tobacco UseTypesPacks/DayYears UsedDateSmoking Tobacco: Every DayCigarettes Smokeless Tobacco: NeverAlcohol UseStandard Drinks/WeekCommentsNever0 (1 standard drink = 0.6 oz pure alcohol)CommentsUnknownSex and Gender InformationValueDate RecordedSex Assigned at BirthNot on fileLegal SexFemale 11/28/2022 3:01 AM EDTGender IdentityNot on fileSexual OrientationNot on file documented as of this encounter Plan of Treatment DateTypeDepartmentCare Team (Latest Contact Info)Vyzpofontem96/21/2026 3:10 PM EDTOffice Visit [facility] at [facility] [address] [place] [phone] Roland Faust MD [address] [place] [address] 2, [facility] [address] [place] [address] documented as of this encounter Visit Diagnoses Diagnosis Shortness of breath Edema, unspecified type documented in this encounter Additional Health Concerns AssessmentNoted TimeA fall risk assessment has been completed for the patient 06/26/2024 9:48 AM ESTdocumented as of this encounter Care Teams Team MemberRelationshipSpecialtyStart DateEnd Date Shantel Norton APRN-ASSOCIATE DEAN [address] [place] [address] PCP - GeneralFamily Medicine12/30/24documented as of this encounter
--- OUTSIDE RECORDS SUMMARY | 2025-04-20 13:40 | XMS_ITS | Encounter Summary ---
Author Organization [facility] Address [address] [place] [address] Care Team Providers Care Commercial Real Estate Manager Name Role Phone Shantel Norton DROP WIRE STRINGER Primary Care Provider Source Comments In the event this information is protected by the Federal Confidentiality of Alcohol and Drug AbusePatient Records regulations: The Federal rules restrict any use of the information to criminally investigate or prosecute any alcohol or drug abuse patient.[facility] Reason for Visit * ReasonCommentsPre-Op Teaching Encounter Details DateTypeDepartmentCare Team (Latest Contact Info)Utattexthte32/02/2025Telephone Gynecology [address] [place] [address] Julita Soliz RN Pre-Op Teaching Social History Tobacco UseTypesPacks/DayYears UsedDateSmoking Tobacco: Every RmvUvixmscfrz914 Started: 1972Smokeless Tobacco: NeverAlcohol UseStandard Drinks/WeekCommentsNot Currently0 (1 standard drink = 0.6 oz pure alcohol)Area Deprivation IndexAnswer Date RecordedNational Score (1-100), lower number is lower cwbz033203/10/2025State Score (1-10), lower number is lower jsbv62105/10/2024Data from: https://www.neighborhoodatlas.medicine.[facility].edu/. Last address used for npe[address] [facility]03/10/2025CommentsNoSex and Gender InformationValueDate RecordedSex Assigned at BirthNot on fileLegal SexFemale 03/30/2012 10:19 AM ESTGender IdentityNot on fileSexual OrientationNot on file documented as of this encounter Miscellaneous Notes * Telephone Encounter - Julita Soliz RN - 04/06/2025 10:55 AM EST LVM for preop teaching. Information sent via [employer]. * Telephone Encounter - Julita Soliz RN - 03/30/2025 2:41 PM EST LVM for preop teaching. Will try back later. documented in this encounter Plan of Treatment DateTypeDepartmentCare Team (Latest Contact Info)Gyxjrwpvjwo60/14/2026 11:45 AM ESTVisit (SP) Office Gynecology Oncology [address] [place] [address] [place] [address] Milly Cordoba MD [address] [place] [address] post opdocumented as of this encounter Visit Diagnoses Not on filedocumented in this encounter Care Teams Team MemberRelationshipSpecialtyStart DateEnd Date Shantel Norton NP [address] [place] [address] PCP - GeneralFamily Ztdovdvf78/24/25documented as of this encounter
--- OUTSIDE RECORDS SUMMARY | 2025-04-20 13:40 | XMS_ITS | Encounter Summary ---
Author Organization [facility] Address [address] [place], [place] [address] Care Team Providers Care Child And Family Counselor Name Role Phone Shantel Norton SENIOR HEALTH PHYSICS TECHNICIAN Primary Care Provider Source Comments In the event this information is protected by the Federal Confidentiality of Alcohol and Drug AbusePatient Records regulations: The Federal rules restrict any use of the information to criminally investigate or prosecute any alcohol or drug abuse patient.[facility] Reason for Visit * ReasonCommentsAnesthesia Consult Encounter Details DateTypeDepartmentCare Team (Latest Contact Info)Bfjjoiplqtv65/15/2025Telephone Pre Anesthesia [address] [place] [address] Reyna Smart APRN.FURNITURE ASSEMBLER [address] [place] [address] Anesthesia Consult Social History Tobacco UseTypesPacks/DayYears UsedDateSmoking Tobacco: Every CfsXqijxudfxd986 Started: 1972Smokeless Tobacco: NeverAlcohol UseStandard Drinks/WeekCommentsNot Currently0 (1 standard drink = 0.6 oz pure alcohol)Area Deprivation IndexAnswer Date RecordedNational Score (1-100), lower number is lower xtnr493403/10/2025State Score (1-10), lower number is lower ygwr95205/10/2024Data from: https://www.neighborhoodatlas.medicine.[facility].edu/. Last address used for eec[address]03/10/2025CommentsNoSex and Gender InformationValueDate RecordedSex Assigned [...] Plan of Treatment DateTypeDepartmentCare Team (Latest Contact Info)Gcdwumxtqvd13/14/2026 11:45 AM ESTVisit (SP) Office Gynecology Oncology [address] [place] [address] [place] [address] Milly Cordoba MD [address] [place] [address] post opdocumented as of this encounter Visit Diagnoses Not on filedocumented in this encounter Care Teams Team MemberRelationshipSpecialtyStart DateEnd Date Shantel Norton NP [address] [place] [address] PCP - GeneralFamily Xhrukbwz56/24/25documented as of this encounter
[2025-04-20 15:13] LABS: Hematocrit 50.0 % (36.0-48.0); Hemoglobin 16.1 g/dL (12.0-16.0); Immature Granulocytes Abs Auto 0.04 10^3/uL (0.00-0.03); Immature Granulocytes Pct Auto 0.3 % (0.0-0.5); Lymphocytes Absolute Auto 2.0 10^3/uL (1.2-3.8); Mean Corpuscular HGB Conc 32.2 g/dL (29.9-35.2); Mean Corpuscular Hemoglobin 30.4 pg (26.7-34.0); Mean Corpuscular Volume 94.3 fL (81.0-99.0); Platelet Count 153 10^3/uL (150-450); Red Blood Count 5.30 10^6/uL (4.20-5.40); White Blood Count 11.9 10^3/uL (4.0-11.0)
[2025-04-20 16:10] LABS: Anion Gap 11.4; Blood Urea Nitrogen 8.0 mg/dL (7.0-18.0); Calcium 9.9 mg/dL (8.5-10.1); Carbon Dioxide 30.2 mmol/L (21.0-32.0); Chloride 103 mmol/L (98-107); Estimated GFR (African America >60 (>=60 mL/min/1.73m^2); Estimated GFR (Non-African Ame >60 (>=60 mL/min/1.73m^2); Glucose 153 mg/dL (74-106); Potassium 4.6 mmol/L (3.5-5.1); Sodium 140 mmol/L (136-145)
== END 2025-04-20 13:33 | disposition home or self-care (01) ==
LOC: LAB 13:36
PROVIDERS: Family Provider Family Medicine; PCP Nurse Practitioner Family; Visit Provider Podiatrist Foot & Ankle Surgery
DX: E11.621 Type 2 diabetes mellitus with foot ulcer (principal); L03.115 Cellulitis of right lower limb
CPT/HCPCS: 36415; 80048; 83036; 85025; 85652; 86140

== ENCOUNTER 2025-04-20 13:42 | Outpatient (OUT) | payer MEDICARE, MEDICAID, SELFPAY ==
--- OUTSIDE RECORDS SUMMARY | 2015-08-21 19:00 | XMS_ITS | Continuity of Care Document ---
Author Organization [facility] Address [address] [place] [address] Phone Care Team Providers Care Infantry Unit Leader Name Role Phone Bridget VARGAS, Margarita Unavailable Unavailable Procedures Procedure Date Echo,2D,M-mode Recording,Complete With S pectral & Or Color Flow Doppler Stress Test Supervision Stress Test Interp&Report Diffusion Capacity: Carbon Monoxide Pre & Post Brochodilator Evaluation Pulm function test by gas Advance Directives Directive Yes / No Effective Date File Name No Information Encounters Encounter Description Practice Location Reason(s) For Visit Diagnoses Date Provider Providers Copied on Encounter [facility], [address] [place], [place], [id number] , tel:[phone] [facility] - [facility] No Information 6 Bridget Avila. [address] [facility] Physician Office [place], [place], [id number], [place]. tel:[phone] Referring Provider: Margarita Gutierrez, [address] [facility] Physician Office Building, [place], [address] . tel:[phone] [facility], [address] [place], [place], [id number] , tel:[phone] [facility] - [facility] Shortness of breathChest pain, unspecifiedDizzines s and giddiness 6 Susie Del Toro. [address] [facility] Physicians Office [place], [place], [id number], [place]. tel:[phone] Referring Provider: Margarita Gutierrez, [address] [facility] Physician Office Building, [place], [address] . tel:[phone] [facility], [address] [facility], [place], [place], [id number] , tel:[phone] [facility] - [facility] Shortness of breathChest pain, unspecifiedDizzines s and giddiness Apr-0 6-201 6 Jean Pierre-Marietta Blackwell. [address] [facility] Physicians Office Building, [place], [place], [facility], . tel:[phone] Referring Provider: Margarita Gutierrez, [address] [facility] Physician Office Building, [place], [address] . tel:[phone] Family History Family Member Type Diagnosis Age At Onset No Information Payers Payer name Insurance type Covered constitution party ID Jeremiah espinoza(link) Yoana [id number] Social History Type Description Quantity Date Captured Comments Sex Female Smoking Status No Information Chief Complaint And Reason For Visit No Information Reason For Referral Reason For Referral No Information History Of Present Illness Encounter Date Complaint History Of Prese nt Illness No Information Functional Status Date Functional Assessmen t No Information Instructions Date Instruction Additional Infor mation No Information Assessments Type Assessment Date No Information Patient Care Teams Name Effective Dates (start - stop) Status Members No Information
--- OUTSIDE RECORDS SUMMARY | 2015-08-31 06:55 | XMS_ITS | Continuity of Care Document ---
Author Organization [facility] Address [address] [place] [address] Phone Care Team Providers Care Dewaterer Operator Name Role Phone Newton Segura MD Unavailable Unavailable Allergies, Adverse Reactions, Alerts Substance Reaction Status Criticality IODINE flu symptoms(moderate) Active No In formation Sulfa (Sulfonamide Antibiotics) Active No Information Medications Medication Instructions Dosage Effective Dates (start - stop) Status Comments Stool Softener 100 mg capsule take 2 capsule by oral route every day at bedtime as needed 200 MG - Active Aspir-81 81 mg tablet,delayed release take 1 tablet by oral route every day - Active lisinopril 10 mg tablet take 1 tablet by oral route every day 10 MG - Active simvastatin 20 mg tablet take 1 tablet by oral route every day in the evening 20 MG - Active omeprazole 20 mg capsule,delayed release take 1 capsule by oral route every day 30 minutes to 1 hour before a meal 20 MG - Active Lyrica 150 mg capsule take 1 capsule by oral route 3 times every day 150 MG - Active temazepam 30 mg capsule take 1 capsule by oral route every day at bedtime as needed 30 MG - Active Invokana 300 mg tablet take 1 tablet by oral route every day before the first meal of the day 300 MG - Active Vitamin D2 50,000 unit capsule take 1 capsule by oral route every week - Active Procedures Procedure Date OFFICE/OUTPATIENT VISIT, EST OFFICE CONSULTATION EKG Complete 12 Lead OFFICE/OUTPATIENT VISIT, NEW Advance Directives Directive Yes / No Effective Date File Name No Information Encounters Encounter Description Practice Location Reason(s) For Visit Diagnoses Date Provider Providers Copied on Encounter [facility], [address] [place] [address], [id number], tel:[phone] [facility] No Information 6 Colton Glez. [address] [facility] Physician Office Building, [place], [place], [address], . tel:[phone] OFFICE/OUTPAT IENT VISIT, [facility] Physician [facility], [address] [place] [address], [id number], [place] tel:[phone] [facility] Hyperlipidemia , unspecified hyperlipidemia typeObesity, unspecified obesity severity, unspecified obesity typeShortness of breathEssentia l hypertension, hypertension with unspecified goal 6 Georgia Mastersi. [address] [place] [address], [place], [place], [id number], [place]. tel:[phone] OFFICE CONSULTATION [facility] Physician [facility], [address] [place] [address], [id number], [place] tel:[phone] [facility] Shortness of breathEssentia l hypertension, hypertension with unspecified goalHyperlipid emia LDL goal <100Diabetes mellitus type II, non insulin dependent Jun- 6 Bridget Avila. [address] [facility] Physician Office Building, [place], [place], [id number], [place]. tel:[phone] Referring Provider: Sadie Fritz NP, [facility], [place], [address]. tel:[phone] [facility] Physician [facility], [address] [place] [address], [id number], [place] tel:[phone] [facility] No Information 6 Bridget Avila. [address] [facility] Physician Office Building, [place], [place], [id number], [place]. tel:[phone] OFFICE/OUTPAT IENT VISIT, [facility], [address] [place] [address], [id number], [place] tel:[phone] [facility] Obesity, Morbid (chief complaint) Body mass index (BMI) 33.0-33.9, adult 7201 5 Steve Bishop. [address] [facility] Physician Office Building, [place], [place], [address], [place]. tel:[phone] Family History Family Member Type Diagnosis Age At Onset Brother Problem (finding) No hx of CAD Father Problem (finding) Sister Problem (finding) myocardial inf arct in first degree female relative less than 65 years of age (Cause Of ) 64 Father Problem (finding) MS with hx of cabg (Cau se Of ) 79 Sister Problem (finding) 64 Brother Problem (finding) Alive and well Mother Problem (finding) CHF and HTN Sister Problem (finding) no hx of CAD Payers Payer name Insurance type Covered green party ID Jeremiah espinoza(rod Lees [id number] Social History Type Description Quantity Date Captured Comments Alcohol Use Details Unknown Caffeine Use Details Unknown Tobacco Use Status Smoking Status No Information Sex Female Chief Complaint And Reason For Visit No Information Reason For Referral Reason For Referral No Information Plan Of Treatment Date Type Action Status Goal Tobacco cessation counseling completed Goal Tobacco cessation counseling completed Goal Special diet education compl eted Referral Ordered: Stress Test Cardiovascular (Plain Treadmill) [id number] Ordered: X-Ray Chest PA & Lateral: 2 View [id number] Ordered: Complete Pulmonary Function Test ordered History Of Present Illness Encounter Date Complaint History Of Prese nt Illness Obesity, Morbid Functional Status Date Functional Assessmen t No Information Instructions Date Instruction Additional Infor tam BP under good contro l, no medication changes today. Related to Essential hypertension, hypertension with unspecified goal Reviewed most recent cholesterol levels from 06/21/15, which look excellent with an LDL of 68. Will continue current statin therapy. Her BUN and creatinine were 8/0.87, sodium and K+ of 144/4.1. Related to Hyperlipidemia, unspecified hyperlipidemia type She is on statin the rapy and we will attempt to get a copy of her most recent lipid profile for my review Related to Hyperlipidemia LDL goal <100 Believe that her jakob rtness of breath is likely secondary to underlying pulmonary disease from her tobacco abuse. However she does have multiple risk factors for coronary disease including tobacco, hypertension, diabetes, and hyperlipidemia and because of his cardiac risk factors and because shortness of breath can be an anginal equivalent, I think we need to proceed with further cardiac testing. I have ordered a pulmonary function test to evaluate her pulmonary status but from a cardiac standpoint we will check an echocardiogram to assess cardiac structural abnormalities and left ventricular systolic and diastolic function and will have her get a treadmill stress test so that we can assess her heart rate response to exercise as well as evaluate for underlying coronary disease. I am also going get a chest x-ray because she tells me she has not had one done in some time and I think because of her tobacco abuse history she needs to have a chest x-ray for screening purposes. Related to Shortness of breath Blood pressure is cu rrently under good control on current medications and I made no changes Related to Essential hypertension, hypertension with unspecified goal Special diet education Related t o Body mass index (BMI) 33.0-33.9, adult Assessments Type Assessment Date No Information Patient Care Teams Name Effective Dates (start - stop) Status Members No Information
--- NOTE | 2025-04-20 13:54 | MR_ITS ---
[facility] [facility] [id number] Patient Name: TAYE MARCOS MRN: [id number] date: 1955 Sex: F Assigned Patient Location: MRI Current Patient Location: MRI Accession/Order Number: [id number] Exam Date: 04/20/2025 14:10 Report Date: 04/20/2025 21:53 At the request of: ELOISA PRETTY DPM Procedure: MR foot RT wo con MRI the right forefoot Without contrast TECHNIQUE: Multiplanar T1 and T2-weighted imaging of the foot obtained without contrast. HISTORY: Nonhealing wound involving the right first metatarsal-phalangeal joint COMPARISON:11/24/2024 SKIN MARKER: None BONY ALIGNMENT: Adequate BONE INFILTRATION:None BONY LESION: None BONE MARROW EDEMA: None TENDONS: Intact INTRINSIC MUSCLES: Normal signal PLANTAR PLATE: Intact SOLARES'S NEUROMA: None OSTEOMYELITIS No osteomyelitis SOFT TISSUES: At the plantar aspect of the foot at the level of the first metatarsal phalangeal joint there is soft tissue infiltrative changes likely representing granulation tissue associated with plantar ulceration. No fluid collection seen to suggest abscess. Adjacent to the flexor tendon which is intact. Plantar plates intact. Adequate alignment of the bony structures. No cortical destruction. No bone marrow edema. Findings similar to prior examination. MR/MR foot RT wo con Impression: Impression dictated by: Eugenio Lazo M.D. 04/20/2025 9:53 PM Dictation Location: [facility] Electronically authenticated by: [id number] Y Date: 04/20/2025 21:53
== END 2025-04-20 13:43 | disposition home or self-care (01) ==
LOC: MRI 13:42
PROVIDERS: Family Provider Family Medicine; PCP Nurse Practitioner Family; Visit Provider Podiatrist Foot & Ankle Surgery
DX: L03.115 Cellulitis of right lower limb (principal); E11.621 Type 2 diabetes mellitus with foot ulcer
CPT/HCPCS: 36415; 73718; 80048; 83036; 85025; 85652; 86140

== ENCOUNTER 2025-04-26 14:09 | Outpatient (OUT) | payer MEDICARE, MEDICAID, SELFPAY ==
--- OUTSIDE RECORDS SUMMARY | 2025-04-09 12:20 | XMS_ITS | Encounter Summary ---
Author Organization [facility] Address [address] [place], [place] [address] Care Team Providers Care Gamer Name Role Phone Shantel Norton Rebecca WIREWORKER Primary Care Provider Source Comments In the event this information is protected by the Federal Confidentiality of Alcohol and Drug AbusePatient Records regulations: The Federal rules restrict any use of the information to criminally investigate or prosecute any alcohol or drug abuse patient.[facility] Reason for Visit * ReasonCommentsAnesthesia Consult Encounter Details DateTypeDepartmentCare Team (Latest Contact Info)Ulmlsjgzbbc96/12/2025 12:20 PM ESTPAT Pre Anesthesia [address] [place] [address] 1, [facility] [place] [address] [place] [address] Pre-op evaluation (Primary Dx); Hypercholesteremia; Primary hypertension; Gastroesophageal reflux disease, unspecified whether esophagitis present; Atrial flutter, unspecified type (HCC); MCI (mild cognitive impairment); BOSTON (obstructive sleep apnea); Anxiety and depression; Type 2 diabetes mellitus with other specified complication, unspecified whether intermodal dispatcher insulin use ([facility]); Smoker; Diabetic ulcer of right foot associated with type 2 diabetes mellitus, unspecified part of foot, unspecified ulcer stage ([facility]) Social History Tobacco UseTypesPacks/DayYears UsedDateSmoking Tobacco: Every RokAlupizulwq431 Started: 1972Smokeless Tobacco: NeverAlcohol UseStandard Drinks/WeekCommentsNot Currently0 (1 standard drink = 0.6 oz pure alcohol)Area Deprivation IndexAnswer Date RecordedNational Score (1-100), lower number is lower yxst975603/10/2025State Score (1-10), lower number is lower sspn32905/10/2024Data from: https://www.neighborhoodatlas.[facility]/. Last address used for b[address]mkvaf[address] [facility]03/10/2025CommentsNoSex and Gender InformationValueDate RecordedSex Assigned at BirthNot on fileLegal SexFemale 03/30/2012 10:19 AM ESTGender IdentityNot on fileSexual OrientationNot on file documented as of this encounter Last Filed Vital Signs Vital SignReadingTime TakenCommentsBlood Yslwimgg91/5804/09/2025 12:22 PM EST Awcod003904/09/2025 12:22 PM GISHtaqnogkdhw49.7 ??C (98.1 ??F)04/09/2025 12:22 PM ESTRespiratory Divu981406/10/2024 12:22 PM ESTOxygen Fcqzssajju60%04/09/2025 12:22 PM ESTInhaled Oxygen Concentration--Hsmnqf94 kg (189 lb 9.5 oz)04/09/2025 12:22 PM PMDIamfsm382.2 cm (5' 7 )04/09/2025 12:22 PM ESTBody Mass Index29.69 04/09/2025 12:22 PM ESTdocumented in this encounter Patient Instructions * Patient Instructions* Reyna Smart APRN.JOURNALIST - 04/08/2025 11:00 AM EST PATIENT PREOPERATIVE INSTRUCTIONS You Surgeon has scheduled you for your procedure at this surgery center: [facility]: [phone] --[address] [address]. Please check in on the1st floor at registration desk 6. Please read below carefully for your personalized instructions. Dietary Restrictions: -Clear liquids ONLY (water, clear juices such as apple juice or gatorade, carbonated beverages (sprite/ju kaylen), clear tea, black coffee, jello) for at least 24 hours prior to your procedure. No solid food the day before surgery. - You may have 12 ounces of clear liquids until 2 hours before scheduled arrival at facility. Medications: Unless instructed differently below, stay on all of your medications until your surgery. Approved medications to take the morning of surgery with a sip of water: Carvedilol, Sertraline, Lyrica, Omeprazole, Preoperative Instructions for Patient's with Diabetes Mellitus Oral/ Injectable Medication Instructions - Metformin - HOLD DAY OF SURGERY Actos/Pioglitazone - HOLD DAY OF SURGERY Empagliflozin/Jardiance - HOLD 3 DAYS PRIOR TO SURGERY Semaglutide (Ozempic) (Wegovy)(Rybelsus) - HOLD THE DAY OF SURGERY. Insulin Medication Instructions Humalog - Please take the following medications at your usual dose the day before surgery. Tougeo take - If you take in the morning: Check fasting AM glucose, if 200 or greater, take half the prescribed dose. If under 200, do not take your morning dose If you start any new medications after today's visit, please contact the surgeon's office. Blood Thinning Medications: - Stop NSAIDS (Ibuprofen, Advil, Aleve, Motrin, Celebrex, Mobic, etc.) 7 days before surgery, as directed by your surgeon. - Stop Eliquis 3 days before surgery, as directed by your surgeon. - Stop Vitamin E, ALL multi-vitamins, herbals and dietary supplements 7 days before surgery. - You may take Tylenol (Acetaminophen) or any of your pain medications that do not contain aspirin or NSAIDS as needed. Important Reminders: - If you are prescribed inhalers for breathing, continue using them. - Candy, mints, and tobacco products are NOT permitted the morning of surgery. - Hearing aids, dentures and glasses may be worn the morning of surgery. - NO jewelry, body piercings, makeup, hairpins or contacts are to be worn the day of surgery. If you develop symptoms such as a fever, cold, or flu, or have other changes to your health within TWO DAYS of scheduled surgery or the morning of surgery, please contact the surgery center above. Personal Belongings: -Please have photo ID and insurance cards. -If you do not have a copy of advance directives on file with us, please bring a copy with you on the day of surgery. - Leave ALL valuables and money at home or with family members. For Outpatient Procedures: - YOU MUST HAVE A RESPONSIBLE POCKET MAKER TAKE YOU HOME. A AMERICAN INDIAN STUDIES PROFESSOR OR CATH LAB RADIOLOGICAL TECHNOLOGIST CANNOT BE MADE A RESPONSIBLE POCKET MAKER. - We recommend that a responsible person stays with you overnight to take care of you. - You cannot stay in a hotel alone after outpatient surgery. You will not be permitted to have yoursurgery, if you do not have someone to take care of you. Arrival Time for Surgery: - The Surgery Center or hospital where you are having surgery will call the afternoon before surgery (or Saturday for Saturday surgery) with a scheduled arrival time. - If you have not heard by 4 pm, please contact the surgery center above. Please be aware that emergency situations arise, which may delay or change your surgical time. If this happens, we will notify you as soon as possible and regret any inconvenience. If you already have an Advance Directive, please fax a copy to [phone] or email to for it to be added to your chart. If you do not have an Advance Directive, you can find the appropriate form and more information at [email or web address]. We recommend that youcomplete the Advance Directive form found on the website and bring it with you the day of your surgery. It can be witnessed and scanned into your chart that day. Reyna Smart APRN.CNP documented in this encounter H&P Notes * Reyna Smart APRN.CNP - 04/09/2025 12:20 PM EST HISTORY AND PHYSICAL EXAMINATION SERVICE DATE: 04/09/2025 SERVICE TIME: 12:11 PM PRIMARY CARE PHYSICIAN: Shantel Norton NP REASON FOR VISIT: Kerry Gay is a 69 year old female who is scheduled for Pending - VULVECTOMY PARTIAL SIMPLE at the request of Dr. Milly Cordoba for consultation. My final recommendation will be communicated back to the requesting physician by way of shared medical record or letter. Assessment Patient has the following medical conditions which may affect [place]-operative course: Hypercholesteremia Assessment: Compliant with Statin Hypertension Assessment: Controlled with medication management / in office today Reports BP normally runs low Denies any lightheaded or dizziness GERD (gastroesophageal reflux disease) Assessment: Controlled with PPI Atrial flutter (HCC) Assessment: Stable Currently on Carvedilol and Eliquis- Okay to hold 3 days prior to procedure RRR on exam Patient denies any Chest pain or Shortness of Breath Per Cardiology Dr. Faust's ANTONETTE note: 12/30/2024: Atrial flutter with prior cardioversion. She was on amiodarone but discontinued due to concern about amiodarone causing lower extremity weakness. She appeared to have had a brief episode of A-fib while in the hospital for workup for TIA about 8 months ago with no recurrence since then MCI (mild cognitive impairment) Assessment: On Namenda Follows with Neurology Dr. Kincaid BOSTON (obstructive sleep apnea) Assessment: Does not use CPAP Anxiety and depression Assessment: Controlled with SSRI Diabetes ([facility]) Assessment: Complaint with oral medication, GLP 1, and insulin A1C ordered today Instructions provided to patient on how long to hold diabetic medications prior to procedure & Regarding clear liquid diet the day prior to procedure Smoker Assessment: Smokes 1 PPD 51 Pack years Diabetic ulcer of right foot associated with type 2 diabetes mellitus (HCC) Assessment: Chronic, Stable Patient and daughter report it has been there for Months Denies any infection Wound currently closed Follows with podiatry ANESTHESIA FINDINGS: Intubation History: No history of difficult intubation Significant Anesthesia Considerations: none Airway History: No history of difficult airway Mchugh Activity Status Index: METS: Walk indoors, such as around the house (1.75 METs) Take care of self; that is eating, dressing, bathing, using the toilet (2.75 METs) DASI Score: 4.5 Patient denies any chest pain or undue shortness of breath with the above physical activity. STOP-Bang Score: STOP-Bang Score: 0 (+BOSTON) [id number] Score: Age: 65-74 Sex: female CHF history: Yes Hypertension history: Yes Stroke/TIA/thromboembolism history: No Vascular disease history: No Diabetes history: Yes [id number] Score: 5 ARISCAT Score: Age: 51-80 Preoperative SpO2: 91-95% Respiratory infection in the last month: No Preoperative anemia: No Surgical incision: peripheral Duration of surgery: <2 hrs Emergency procedure: No ARISCAT Score: 11 I - PHYSICAL EVALUATION AIRWAY Patient intubated: No. Tracheostomy tube not present Mallampati: III. TM distance: >3 FB. Neck ROM: full ROM without neurological symptoms. Mouth opening: >3 FB. Short neck: no. Thick neck: no Lip Bite Test: II Microretrognathia/Micronagthia/Recessed Chin: No DENTAL Dental findings: teeth intact and edentulous. Dentures, upper: complete. Dentures, lower: complete. II - ANESTHESIA PLAN Informed Consent Prepared for surgery: This patient is optimally prepared for surgery. 04/12/2025 addendum: A1C back at 8.4. Per Dr. Cordoba resection will be very superficial okay to proceed as planned. CONSULTS: Patient does not require consults for optimization at this time. The Following Tests/Procedures Have Been Initiated: Labs not indicated per [facility] protocol, EKG not indicated per [facility] protocol Planned Anesthetic: Per anesthesia choice Subjective CHIEF COMPLAINT: Pre-Op Evaluation HPI: 69 year old year old presents to [facility] for evaluation. Patient has history of SONNY 3 s/p partial vulvectomy (2019) presenting for evaluation of new vulvar lesions. She is accompanied by her daughter, who provides additional history. The patient has a history of SONNY 3 and underwent partial vulvectomy with Dr. Joaquin in 2019. She has a remote history of hysterectomy with removal of the cervix approximately 30 years ago for menorrhagia. She has no known history of cancer or pre-cancerous lesions in the vagina since the hysterectomy. She was referred by Dr. Cali Castro for evaluation of new vulvar lesions. Dr. Castro performed a biopsy of the vulvar lesion, which was consistent with condyloma. She also had an abnormal Pap smear showing LGSIL and was HPV positive. - Dr. Wood. Has electedfor surgical intervention. PAST MEDICAL HISTORY Diagnosis Date Diabetes (HCC) Fibromyalgia Hypercholesteremia Hypertension Smoker Smoker Vulvar intraepithelial neoplasia (SONNY) grade 3 PAST SURGICAL HISTORY Procedure Laterality Date CARPAL TUNNEL Right 2018 ESOPHAGEAL DILATION (AG) HYSTERECTOMY HX TONSILLECTOMY HX FAMILY HISTORY Problem Relation Age of Onset Heart disease Mother Hypertension Mother Stroke Mother Stroke Father Heart disease Father Cancer Father Diabetes Sister SOCIAL HISTORY: Social History[1] Prior to Admission medications as of 04/09/25 1245 Medication Sig Last Dose Taking apixaban (ELIQUIS) 5 mg tab(s) .COMPLEX Yes carvedilol (COREG) 12.5 mg tablet Take 12.5 mg by mouth. Yes donepezil (ARICEPT) 10 mg tablet Take 20 mg by mouth every morning. Yes JARDIANCE 25 mg tablet Take 25 mg by mouth once daily. Yes EPINEPHrine (EPIPEN) 0.3 mg/0.3 mL auto-injector [id number] 0.3 ml EPINEPHrine 1 mg/ml auto-injector (5 sources) alpha-Adrenergic Agonist, beta-Adrenergic Agonist, Catecholamine Start: 12-15-2024 Yes FREESTYLE JUDY 14 DAY SENSOR kit Yes furosemide (LASIX) 20 mg tablet Take by mouth. Yes TOUJEO SOLOSTAR U-300 INSULIN 300 unit/mL (1.5 mL) INJECT 23 UNITS SUBCUTANEOUSLY EVERY MORNING Yes magnesium oxide (MAG-OX) 400 mg (241.3 mg magnesium) tablet Take 1 tablet by mouth every 12 hours. Yes ketoconazole (NIZORAL) 2 % shampoo ketoconazole 20 mg/ml medicated shampoo (2 sources) Azole Antifungal Start: 01-12-2025 Yes tacrolimus (PROTOPIC) 0.1 % ointment APPLY TO AFFECTED AREAS ON FACE TWICE DAILY UNTIL CLEAR . Yes traMADol (ULTRAM) 50 mg tablet Take 50 mg by mouth two times a day as needed for pain. Yes sertraline (ZOLOFT) 50 mg tablet Take 50 mg by mouth. Yes semaglutide (OZEMPIC) 1 mg/dose (4 mg/3 mL) pen Inject 1 mg subcutaneously one time a week. Yes pregabalin (LYRICA) 300 mg capsule Take 300 mg by mouth two times a day. Yes memantine (NAMENDA) 10 mg tablet Take 10 mg by mouth two times a day. Yes polyethylene glycol 3350 (MIRALAX) 17 gram/dose powder Take 17 g by mouth once daily. Yes docusate sodium (COLACE) 100 mg capsule Take 1 capsule by mouth twice daily. Yes acetaminophen (TYLENOL) 325 mg tablet Take 2 tablets by mouth every 4 hours as needed for Pain. Yes insulin lispro sliding scale 1 (HUMALOG) Inject 1-5 Units subcutaneously w MEALS. Yes cyanocobalamin (VITAMIN B-12) 1,000 mcg tab 1,000 mcg once daily. Yes folic acid 1 mg tablet Take 1 mg by mouth once daily. Yes metFORMIN (GLUCOPHAGE) 500 mg tablet Take 500 mg by mouth twice daily with meals. Yes nortriptyline (PAMELOR) 50 mg capsule Take 50 mg by mouth daily at bedtime. Yes omeprazole (PRILOSEC) 20 mg capsule Take 20 mg by mouth once daily. Yes pioglitazone (ACTOS) 15 mg tablet Take 15 mg by mouth once daily. Yes simvastatin (ZOCOR) 20 mg tablet Take 20 mg by mouth daily at bedtime. Yes terconazole (TERAZOL 7) 0.4 % vaginal cream insert 1 applicatorful vaginally once daily for 7 days Yes ibuprofen (MOTRIN) 600 mg tablet Take 1 tablet by mouth every 6 hours as needed for Pain. metoclopramide HCl (REGLAN) 10 mg tablet Take 10 mg by mouth four times daily. temazepam (RESTORIL) 30 mg cap Take 30 mg by mouth at bedtime as needed. No medication comments found. Allergies Allergen Reactions Sulfa (Sulfonamide Antibiotics) Vomiting Covid Immunization Dates Current Care Gaps Covid-19 Vaccine ( season) Never done No completion, postpone, frequency change, or communication history exists for this topic. REVIEW OF SYSTEMS: PAIN ASSESSMENT: General: No weight loss, malaise or fevers. Neuro: Negative for Headaches Seizures Stroke-residual deficit Stroke-No residual deficit +MCI Respiratory: No history of current cough or dyspnea, or pneumonia in the past 6 weeks. No history of respiratory/pulmonary symptoms or problems. +BOSTON Cardiovascular: Negative for Recent KS, Angina, Chest Pain, PVD, DVT/PE +HTN +HLD +Aflutter s/p cardioversion GI: Negative for Nausea, Vomiting, Abdominal pain +GERD : Negative for dysuria, incontinence, hematuria, and hesitancy BRYOLOGIST: +See HPI : Denies, No LMP recorded. Patient has had a hysterectomy. Endocrine: Diabetes Mellitus on insulin, Diabetes Mellitus on oral agent +GLP1 Hematology: Chronic anti-coagulation / platelet meds (DOAC) Oncology: No history of CA metastasis, chemo within 30 days, or radiotherapy within 90 days. Has not lost 10% of body wt in 6 months. No history of oncological symptoms or problems. Psych: Anxiety, Depression Musculoskeletal: Back pain Skin: +Pressure Ulcer bottom of right foot Dr [place] Objective PHYSICAL EXAM: VITALS: BP 91/58 Pulse 73 Temp (Src) 98.1 (Oral) Resp 16 Ht 5' 7 (1.70m) Wt 189 lb 9.5 oz (86.0kg) SpO2 95% BMI 29.69 kg/(m^2). General: Alert and oriented Skin: +Pressure Ulcer bottom of right foot HEENT: EOM, pupils equal, round and reactive. Cardiovascular: Normal S1 & S2, no rubs, murmurs or gallops. No JVD. Pulse regular. Lungs: Normal breath sounds, no wheezes or crackles. Abdomen: Soft, non-tender, no rigidity. Extremities: No deformity, no edema or tenderness, no joint swelling or clubbing. Neurological: Normal cognition and motor skills. Pulses: Carotid and radial pulses normal +2. Diagnostic tests reviewed for today's visit: Lab Value Units Date High Low HB 16.8 g/dL 03/10/2025 15.5 11.5 HCT 51.2 % 03/10/2025 46.0 36.0 WBC 9.12 k/uL 03/10/2025 11.00 3.70 PLT 156 k/uL 03/10/2025 400 150 NA 139 mmol/L 03/10/2025 144 136 K 5.0 mmol/L 03/10/2025 5.1 3.7 GLUC 197 mg/dL 03/10/2025 99 74 BUN 8 mg/dL 03/10/2025 21 7 CREAT 0.89 mg/dL 03/10/2025 0.96 0.58 PTSEC No results within date range. INR No results within date range. APTT No results within date range. ALT 21 U/L 03/10/2025 38 7 AST 28 U/L 03/10/2025 35 13 TBILI 0.4 mg/dL 03/10/2025 1.3 0.2 TSH No results within date range. Hemoglobin A1C (%) Date Value 04/09/2025 8.4 Recent Results (from the past 8760 hours) ECG COMPLETE Collection Time: 12/12/25 12:46 PM Result Value Ventricular Rate 70 Atrial Rate 70 P-R Interval 162 QRS Duration 82 QT Interval 414 QTC Calculation (Bazett) 447 Calculated P Austin 53 Calculated R Austin 21 Calculated T Austin 33 Impression NORMAL SINUS RHYTHM NORMAL ECG Confirmed by Julia PHILLIPS RAVISANKAR ([id number]) on 04/10/2025 8:41:00 AM Instructions Given to Patient: Instructions located in the after visit summary. Patient given verbal and written preop instructions and voices comprehension and compliance. SIGNATURE: Reyna Smart APRN.CNP PATIENT NAME: Kerry Gay DATE: 04/09/2025 TIME: 12:11 PM [1] Social History Tobacco Use Smoking status: Every Day Current packs/day: 1.00 Average packs/day: 1 pack/day for 51.0 years (51.0 ttl pk-yrs) Types: Cigarettes Start date: 1972 Smokeless tobacco: Never Vaping Use Vaping status: Never Used Substance Use Topics Alcohol use: Not Currently Drug use: Never Comment: denies tx for drug/alcohol abuse in the past. documented in this encounter Plan of Treatment DateTypeDepartmentCare Team (Latest Contact Info)Xlteyvtsyno53/14/2026 11:45 AM ESTVisit (SP) Office Gynecology Oncology [address] [place] [address] [place] [address] Milly Cordoba MD [address] [place] [address] post opdocumented as of this encounter Results * (ABNORMAL) HEMOGLOBIN A1C (04/09/2025 1:32 PM EST)ComponentValueRef RangeTest MethodAnalysis TimePerformed AtPathologist SignatureHemoglobin A1C8.4(H)4.3 - 5.6 %04/11/2025 8:54 AM [facility]:[place] Diabetes Association guidelines indicate that patients with HgbA1c in the range 5.7- 6.4% are at increased risk for development of diabetes, and intervention by lifestyle modification may be beneficial. HgbA1c greater or equal to 6.5% is considered diagnostic of diabetes.Estimated Average Viujfsg878ma/dL04/11/2025 8:54 AM [facility]Comment:eAG: (Estimated average glucose) is a calculated value from HgbA1c and is phlebotomy services representative of the average blood glucose level in the last 2-3 month period.Specimen (Source)Anatomical Location / LateralityCollection Method / VolumeCollection TimeReceived Time BloodBLOOD SPECIMEN / UnknownVenipuncture / Iwngeuk0204/09/2025 1:32 PM EST 04/09/2025 1:33 PM EST Narrative Authorizing ProviderResult TypeResult StatusReyna Smart APRN.CNPLABORATORY Final ResultPerforming OrganizationAddressCity/State/ZIP CodePhone Number [facility] [address] documented in this encounter Visit Diagnoses Diagnosis Pre-op evaluation- Primary Preoperative examination, unspecified Hypercholesteremia Pure hypercholesterolemia Primary hypertension Unspecified essential hypertension Gastroesophageal reflux disease, unspecified whether esophagitis present Atrial flutter, unspecified type (HCC) MCI (mild cognitive impairment) Mild cognitive impairment, so stated BOSTON (obstructive sleep apnea) Obstructive sleep apnea (adult) (pediatric) Anxiety and depression Dysthymic disorder Type 2 diabetes mellitus with other specified complication, unspecified whether prison insulin use (HCC) Smoker Tobacco use disorder Diabetic ulcer of right foot associated with type 2 diabetes mellitus, unspecified part of foot, unspecified ulcer stage (HCC) * Assessment & Plan Note - Reyna Smart APRN.JOURNALIST - 04/09/2025 1:14 PM EST Associated Problem(s): Diabetic ulcer of right foot associated with type 2 diabetes mellitus (HCC) Assessment: Chronic, Stable Patient and daughter report it has been there for Months Denies any infection Wound currently closed Follows with podiatry * Assessment & Plan Note - Reyna Smart APRN.CNP - 04/09/2025 1:07 PM EST Associated Problem(s): Smoker Assessment: Smokes 1 PPD 51 Pack years * Assessment & Plan Note - Reyna Smart APRN.CNP - 04/09/2025 1:07 PM EST Associated Problem(s): Diabetes (HCC) Assessment: Complaint with oral medication, GLP 1, and insulin A1C ordered today Instructions provided to patient on how long to hold diabetic medications prior to procedure & Regarding clear liquid diet the day prior to procedure * Assessment & Plan Note - Reyna Smart APRN.CNP - 04/09/2025 12:51 PM EST Associated Problem(s): Anxiety and depression Assessment: Controlled with SSRI * Assessment & Plan Note - Reyna Smart APRN.CNP - 04/09/2025 12:47 PM EST Associated Problem(s): BOSTON (obstructive sleep apnea) Assessment: Does not use CPAP * Assessment & Plan Note - Reyna Smart APRN.CNP - 04/09/2025 12:46 PM EST Associated Problem(s): MCI (mild cognitive impairment) Assessment: On Namenda Follows with Neurology Dr. Kincaid * Assessment & Plan Note - Reyna Smart APRN.CNP - 04/09/2025 12:27 PM EST Associated Problem(s): Atrial flutter (HCC) Assessment: Stable Currently on Carvedilol and Eliquis- Okay to hold 3 days prior to procedure RRR on exam Patient denies any Chest pain or Shortness of Breath Per Cardiology Dr. Faust's ANTONETTE note: 12/30/2024: Atrial flutter with prior cardioversion. She was on amiodarone but discontinued due to concern about amiodarone causing lower extremity weakness. She appeared to have had a brief episode of A-fib while in the hospital for workup for TIA about 8 months ago with no recurrence since then * Assessment & Plan Note - Reyna Smart APRN.JAYSON - 04/09/2025 12:18 PM EST Associated Problem(s): GERD (gastroesophageal reflux disease) Assessment: Controlled with PPI * Assessment & Plan Note - Reyna Smart APRN.JAYSON - 04/09/2025 12:17 PM EST Associated Problem(s): Hypertension Assessment: Controlled with medication management 91/58 in office today Reports BP normally runs low Denies any lightheaded or dizziness * Assessment & Plan Note - Reyna Smart APRN.JAYSON - 04/09/2025 12:16 PM EST Associated Problem(s): Hypercholesteremia Assessment: Compliant with Statin documented in this encounter Care Teams Team MemberRelationshipSpecialtyStart DateEnd Date Shantel Norton NP [address] [place] [address] PCP - GeneralFamily Lihozjsd63/24/25documented as of this encounter
--- OUTSIDE RECORDS SUMMARY | 2025-04-16 23:59 | XMS_ITS | Encounter Summary ---
Author Organization [facility] Address [facility] [place] [address] Care Team Providers Care Secretary Specialist Name Role Phone Shantel Norton BRICK KILN WORKER Primary Care Provider Source Comments In the event this information is protected by the Federal Confidentiality of Alcohol and Drug AbusePatient Records regulations: The Federal rules restrict any use of the information to criminally investigate or prosecute any alcohol or drug abuse patient.[facility] Encounter Details DateTypeDepartmentCare Team (Latest Contact Info)Mdnpacogfyv75/19/2025 11:59 PM ESTAnesthesia Event [facility] Operating Room [address] [place] [address] Alejandra Willis AA Student Anesthesia Record Procedure NameResponsible AnesthesiologistAnesthesia Start TimeAnesthesia Stop TimeVULVECTOMY PARTIAL SIMPLE (Pending: Vulva)Events No events on file. * Meds No medications on file. * Agents No agents on file. * Blood No blood administrations on file. Lines, Drains, and Airways No LDAs on file. documented in this encounter Social History Tobacco UseTypesPacks/DayYears UsedDateSmoking Tobacco: Every DisNaigsheqbw476 Started: 1972Smokeless Tobacco: NeverAlcohol UseStandard Drinks/WeekCommentsNot Currently0 (1 standard drink = 0.6 oz pure alcohol)Area Deprivation IndexAnswer Date RecordedNational Score (1-100), lower number is lower uyil388003/10/2025State Score (1-10), lower number is lower ltyu06305/10/2024Data from: https://www.neighborhoodatlas.medicine.[facility].edu/. Last address used for [address]03/10/[address]25CommentsNoSex and Gender InformationValueDate RecordedSex Assigned at BirthNot on fileLegal SexFemale 03/30/2012 10:19 AM ESTGender IdentityNot on fileSexual OrientationNot on file documented as of this encounter Plan of Treatment DateTypeDepartmentCare Team (Latest Contact Info)Fpsmmcsrqqf92/14/2026 11:45 AM ESTVisit (SP) Office Gynecology Oncology [address] [place] [address] [place] [address] Milly Cordoba MD [address] [place], [place] [phone] post opdocumented as of this encounter Visit Diagnoses Not on filedocumented in this encounter Care Teams Team MemberRelationshipSpecialtyStart DateEnd Date Shantel Norton NP [address] [place] [address] PCP - GeneralFamily Nstkqrtt39/24/25documented as of this encounter
--- OUTSIDE RECORDS SUMMARY | 2025-04-26 14:14 | XMS_ITS | Clinical Summary ---
Author Organization [facility] Address [address] [place] [address] Care Team Providers Care Underwriter Mortgage Loan Name Role Phone Sandra Lewis DO Primary Care Provider [phone] Allergies Active AllergyReactionsCriticalityNoted DateCommentsSulfa AntibioticsGI intolerance,Axuzcwm3411/25/2018 Medications MedicationSigDispense QuantityRefillsLast FilledStart DateEnd DateStatus Continuous Blood Gluc Sensor (Wonder ForgeStyle Brent 14 Day Sensor) [facility] [place] 1 SENSOR as directed every 14 days use with DEVICE to MONIT... (REFER TO PRESCRIPTION NOTES).12/21/2022ctive Toujeo SoloStar 300 UNIT/ML injection inject 20 units subcutaneously as esgzmyhn84/16/2023ctive Droplet Pen [place] 32G X 4 MM misc use 1 PEN NEEDLE to inject MEDICATION subcutaneously five times a day02/19/2022 Active omeprazole (PriLOSEC) [address] capsule 01/02/2023ctive Ozempic, 1 MG/DOSE, 4 MG/3ML solution pen-injector Administer 1mg subcutaneously once kgaajj9512/10/2022ctive simvastatin (Zocor) 40 MG tablet Take 40 mg by mouth at namxdnz6112/04/2022ctive Jardiance 25 MG take 1 tablet orally [...] Problems ProblemNoted DateDiagnosed DateWeakness of both lower rymhaoatqak21/10/2025 Overview (10/06/2024): --- multifactorial, including PN G62.9, [...] redo spinal surgery consult. TIA (transient ischemic attack)05/13/20245907Akiezkcnaujaff93/10/2024 Assessment & Plan (04/07/2024 2:16 PM EST): Consult haematology. Cognitive uleuunz4802/25/2024 Assessment & Plan (01/19/2025 4:35 PM EDT): (Continue current regimen.) Assessment & Plan (10/06/2024 2:30 PM EDT): (Continue current regimen.) Assessment & Plan (07/21/2024 3:08 PM EDT): (Continue current regimen.) Get [facility] records - neuro consults, EEG, MR, carotids, echo, discharge summary. Assessment & Plan (04/07/2024 2:16 PM EST): Pt to retry donepezil 15 qam (or 10/5). Assessment & Plan (02/25/2024 2:59 PM EDT): Add memantine 10 -> bid. Then add donepezil 10, titrate. Handout. Get MR images transferred to [facility] P[facility] for my review. 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 Assessment & Plan (01/19/2025 4:35 PM EDT): (Continue avoiding compression.) Assessment & Plan (10/06/2024 2:30 PM EDT): (Continue avoiding compression.) Assessment & Plan (07/21/2024 3:08 PM EDT): (Avoid compression.) Assessment & Plan (04/07/2024 2:16 PM EST): PO afmowsyr62/02/2024 Assessment & Plan (02/25/2024 2:43 PM EDT): Get Dr. Gonzalez's note (2nd request). Assessment & Plan (01/07/2024 1:44 PM EDT): Get rheum note. Assessment & Plan (12/12/2023 2:49 PM EDT): Consult Drs. Vang/Lisa - PO positive, titer increasing, but subtests neg. Known peripheral neuropathy, worsening. Get full set of labs ([facility]). We have some but not all [...] will need neurosurgery consult. Adverse effect of alpha-rublxthiwf12/02/2024Vitamin E styqzmlusi49/02/2024 Assessment & Plan (11/29/2023 3:06 PM EDT): Add MVI (for Vitamin E). Or if already on MVI, add Vit E separately, 2/week. Chronic low back pain without ojztomyj80/10/6652Oejmtccryds66/10/2024Cervical paraspinal muscle spasm10/29/2023 Assessment & Plan (01/19/2025 [...] to neck as well.) Carpal tunnel syndrome, pyvaonluq05/02/2024 Overview (10/06/2024): --- causing hand weakness R29.898. [...] EDT): Restart splint use. ENMG BUE. (2nd) Wohvhphvvjfgew70/02/2024 Assessment & Plan (11/29/2023 3:06 PM EDT): Pt reports 2nd PO is high 1:320 but I don't see it in the labs. Let's make sure we get this. May need rheumatology consult. Neuropathy panel II. Assessment & Plan (10/29/2023 3:17 PM EDT): Redo neurop panel. Diabetic peripheral jejfbqywpt52/02/9404I34 utxlrwajad34/02/2024 Assessment & Plan (01/19/2025 4:35 PM EDT): [...] are drawn. Redo B12 panel 8 w. Tpjtjcrpullu67/02/2024Lumbar paraspinal muscle spasm10/29/2023 Assessment & Plan (01/07/2024 [...] 3:18 PM EDT): Myopathy panel. Leg pain, saflxrtoz79/02/2024 Assessment & Plan (10/29/2023 3:20 PM EDT): XR L-s 6 v. ENMG BLE. (First) Resolved Problems ProblemNoted DateDiagnosed DateResolved DateOSA (obstructive sleep apnea) Encounters DateTypeDepartmentCare ZivoSgfpdsdvfyv66/02/2025Refill [facility] [address] [facility] [address] [place] [address] Luan Kincaid MD Neurogenic pain02/18/2025Telephone [facility] [place] [facility] [address] [place] [address] Nereida Castro MD Biopsy (Appt needed )02/09/2025 12:30 PM EDTOffice Visit [facility] [place] [facility] [address] [place] [address] Nereida Castro MD Encounter for gynecological examination; Vaginal pgzoxp0002/09/20259088Jxbizm28/14/2025Results Follow-Up [facility] [place] [facility] [address] [place] [address] Nereida Castro MD MISCELLANEOUS SMEAR NEQIMSKI65/09/2025Results Follow-Up [facility] [place] [facility] [address] [place] [address] Nereida Castro MD Pathology Report, IGP, APT HPV,RFX 16/18,45, HPV Genotypes 16/18,45 Reflex 02/02/2025 1:30 PM EDTOffice Visit [facility] [place] MEAGHANGYN [address] [place] [address] Nereida Castro MD Encounter for gynecological examination; Vaginal lesion; Encounter for gynecological examination without abnormal finding; Encounter for screening for cervical cancer; Breast cancer screening by ovywlesdk22/07/2025Orders Only [facility] External Department Unsolicited Nereida Castro MD 02/02/20252028Najpgc81/30/2025Telephone [facility] [place] [facility] [address] [place] [address] Nereida Castro MD from Last 3 Months Family History Medical HistoryRelationNameCommentsMental illnessDaughterCancerFatherHeart diseaseFatherStrokeFatherHeart diseaseMotherHypertensionMotherStrokeMother DiabetesSiblingBipolar disorderSister 1DiabetesSonRelationNameStatusComments Brother 1AliveBrother 2AliveDaughterAliveFatherDeceasedMaternal Grandfather DeceasedMaternal GrandmotherDeceasedMotherDeceasedPaternal GrandfatherDeceased Paternal GrandmotherDeceasedSiblingAliveSister 1AliveSister 2AliveSonAlive Social History Tobacco UseTypesPacks/DayYears UsedDateSmoking Tobacco: Every QqzRtrogfnhlo726 Started: 1975Smokeless Tobacco: Current Tobacco Cessation:Ready to Q uit: Not Asked; Counseling Given: Not Answered Comments:Smokes 11-20 cigs per day Alcohol UseStandard Drinks/WeekCommentsNever0 (1 standard drink = 0.6 oz pure alcohol)caffeine intake: occasionalCommentsNoSex and Gender Information ValueDate RecordedSex Assigned at BirthNot on fileLegal AwgUmafuu21/15/2023 8:02 PM EDTGender IdentityNot on fileSexual OrientationNot on file Last Filed Vital Signs Vital SignReadingTime TakenCommentsBlood Odiumexn360/7410 12:41 PM EDT Dugbe803302/25/2024 1:55 PM EDTTemperature--Respiratory Rate--Oxygen Saturation-- Inhaled Oxygen Concentration--Ofwusz35 kg (194 lb)02/09/2025 12:41 PM EDTHeight 170.2 cm (5' 7 )02/02/2025 1:19 PM EDTBody Mass Index30.381 1:19 PM EDT Plan of Treatment DateTypeDepartmentCare Team (Latest Contact Info)Hpmiikhlxtc61/24/2026 4:00 PM EDTOffice Visit [facility] [place] [facility] [address] [place] [address] Luan Kincaid MD [address] [place] [address] 08/10/2025 1:15 PM EDTOffice Visit [facility] [place] [facility] [address] [facility] [address] [place] [address] Nereida Castro MD [address] [facility] [address] [place] [address] Procedures Procedure NamePriorityDate/TimeAssociated DiagnosisCommentsPATHOLOGY REPORT Taejebp2802/02/2025 2:47 PM EDT Vaginal lesion HPV GENOTYPES 16/18,45 SLPKVBRgksyyw81/07/2025 12:00 AM EDT MISCELLANEOUS SMEAR PFUDURKIDuzdxao11/07/2025 12:00 AM EDT IGP, APT HPV,RFX 16/18,06Fjkdlva16/07/2025 12:00 AM EDT Encounter for gynecological examination without abnormal finding Encounter for screening for cervical cancer from Last 3 Months Results * Pathology Report (02/02/2025 2:47 PM EDT)ComponentValueRef RangeTest Method Analysis TimePerformed AtPathologist SignatureMaterial Submitted:Comment [facility]PComment: Material submitted: ?. vulva - VULVA Clinician Provided BBF41UvrwlakDTICOKKXqrzsfh: Clinician provided ICD-10: N89.8 Diagnosis:CommentLABCORPComment: Diagnosis: VULVA, [...] CASSETTE. MZH/BXS ??02/03/2025 ??1504 Local Pathologist Provided SAR69UbqiuioYDQATIHPogspdu: Pathologist provided ICD-10: N90.89 CPTCommentLABCORPComment: CPT ?. 403163 Specimen (Source)Anatomical Location / LateralityCollection Method / Volume Collection TimeReceived TimeOtherTopography unknown / Xjarluw8602/02/2025 2:47 PM EDT15Comment:Other Vulva Print requ Narrative [facility] - 02/04/2025 10:07 AM EDT Performed at: - [address] ??[id number] Solution Manager: Kemar Bella MD, Phone: ??[phone] Performed at: ??02 - [facility] [address] [place] [address] ??[id number] Solution Manager: Jason Nation MD, Phone: ??[phone] Performed at: ??03 - [facility] [place] [facility] [address] [place], [place] ??[id number] Solution Manager: Kemar Bella MD, Phone: ??[phone] Specimen Comment: [id number] Specimen Comment: No. of containers..01 Tissue Authorizing [...] by:CommentLABCORPComment:Eldon Madera MD, PathologistPerformed by:Comment [facility]ABCORPComment:Carmelita Reese, Equalizer Operator (ASCP)Gross description:Comment [facility]ABCORPComment: 20ML, LT WHITE, CLOUDY /LCS ??02/05/2025 ??0740 Local Specimen (Source)Anatomical Location / LateralityCollection Method / Volume Collection TimeReceived Time51 Narrative [facility] - 02/08/2025 1:07 PM EDT Performed at: 01 - [facility] [address] [place] ??[id number] Solution Manager: Savi Cai MD, Phone: ??[phone] Specimen Comment: No. of containers..01 ThinPrep Vial [...] ICD10:CommentLABCORP Comment: Z01.419 Z12.4 Performed By:CommentLABCORPComment:Jolly Kennedy, Equalizer Operator (ASCP) Electronically Signed By:CommentLABCORPComment:Valery Varela MD, Pathologist [...] ThinPrep(R) pap test was interpreted using the HubSpot(R) Genius(TM) Cervical Algorithm whole slide imaging system. HPV AptimaPositive(A)NegativeLABCORPComment: This nucleic acid amplification test detects fourteen high-risk HPV types (16,18,31,33,35,39,45,51,52,56,58,59,66,68) without differentiation. Specimen (Source)Anatomical Location / LateralityCollection Method / Volume Collection TimeReceived TimeVaginal Fluid Narrative [facility] - 02/08/2025 8:07 PM EDT Performed at: 01 - [address] ??[id number] Solution Manager: Savi Cai MD, Phone: ??[phone] Performed at: ??02 - [facility] [address] ??[id number] Solution Manager: Savi Cai MD, Phone: ??[phone] Specimen Comment: Source.............Cervix Specimen Comment: No. of containers..01 ThinPrep Vial Authorizing ProviderResult TypeResult StatusNereida Castro MDLAB BLOOD ORDERABLESFinal ResultPerforming OrganizationAddressCity/State/ZIP CodePhone Number [facility] * (ABNORMAL) HPV Genotypes 16/18,45 Reflex (02/02/2025 12:00 AM EDT)Component ValueRef RangeTest MethodAnalysis TimePerformed AtPathologist SignatureHPV Genotype 16Positive(A)NegativeLABCORPHPV Genotype 18,45NegativeNegativeLABCORP Specimen (Source)Anatomical Location / LateralityCollection Method / Volume Collection TimeReceived Time510/11/2024 Narrative [facility] - 02/08/2025 8:07 PM EDT Performed at: 02 - [facility] [address] ??[id number] Solution Manager: Savi Cai MD, Phone: ??[phone] Authorizing ProviderResult TypeResult StatusNereida THOMAS CYTOLOGY ORDERABLESFinal ResultPerforming OrganizationAddressCity/State/ZIP CodePhone Number [facility] from Last 3 Months Insurance Care Teams Team MemberRelationshipSpecialtyStart DateEnd Date Sandra Lewis DO [address] [facility] [place] [address] PCP - GeneralFamily Medicine10/15/24
--- OUTSIDE RECORDS SUMMARY | 2025-04-26 14:14 | XMS_ITS | Clinical Summary ---
Author Organization [facility] Address [address] [place], [place] [address] Care Team Providers Care Jukebox Checker Name Role Phone Shantel Norton SCOURING MACHINE OPERATOR Primary Care Provider Allergies Active AllergyReactionsCriticalityNoted DateCommentsSulfa (Sulfonamide Antibiotics)Iybzmhkk86/30/2019 Medications MedicationSigDispense QuantityRefillsLast FilledStart DateEnd DateStatus cyanocobalamin [...] 1 applicatorful vaginally once daily for 7 ujnp608Active insulin lispro sliding scale 1 (HUMALOG) Inject [...] a day.07/03/2024tive apixaban (ELIQUIS) 5 mg tab(s) .KJYGUUE26/14/2024Active carvedilol (COREG) 12.5 mg tablet Take 12.5 mg by mouth./6Active donepezil (ARICEPT) 10 mg tablet Take 20 mg by mouth every morning.Active JARDIANCE 25 mg tablet Take 25 mg by mouth once daily.Active EPINEPHrine (EPIPEN) 0.3 mg/0.3 mL auto-injector [id number] 0.3 ml EPINEPHrine 1 mg/ml auto-injector (5 [...] PM EST): Assessment: Controlled with PPI Atrial orjcbhh7704/09/2025 Assessment & Plan (04/09/2025 12:27 PM EST): [...] Assessment: Does not use CPAP Anxiety and /12/2025 Assessment & Plan (04/09/2025 12:51 PM EST): Assessment: Controlled with SSRI Diabetic ulcer of right foot associated with type 2 diabetes julonruk30/12/2025 Assessment & Plan (04/09/2025 1:14 PM EST): [...] Assessment: Current 40 pack year Encounters DateTypeDepartmentCare AoiwNtdugefounx30/19/2025 11:59 PM ESTAnesthesia Event [facility] Operating [facility] [address] [place] [address] Alejandra Willis AA Student 04/12/2025Results Follow-Up Gynecology Oncology [address] [place] [address] Sarah Coto, ROLL DOUGH DIVIDER.TALLOW MAKER 04/12/2025Telephone Pre Anesthesia [address] [place] [address] Reyna Smart, ROLL DOUGH DIVIDER.TALLOW MAKER Anesthesia Whoanmk0204/09/2025 1:07 PM EST - 04/09/2025 11:59 PM ESTHospital Encounter Radiology [address] [place] [address] 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] Discharge Disposition: Home04/09/2025 12:20 PM ESTPAT Pre Anesthesia [address] [place] [address] 1, Pacc [place] Pre-op evaluation (Primary Dx); Hypercholesteremia; Primary hypertension; Gastroesophageal reflux disease, unspecified whether esophagitis present; Atrial flutter, unspecified type (HCC); MCI (mild cognitive impairment); BOSTON (obstructive sleep apnea); Anxiety and depression; Type 2 diabetes mellitus with other specified complication, unspecified whether longterm insulin use (HCC); Smoker; Diabetic ulcer of right foot associated with type 2 diabetes mellitus, unspecified part of foot, unspecified ulcer stage (HCC)04/09/2025Radiology Radiology [address] [place] [address] Concepción Devries, RT(R) Radiology XR04/01/2025Telephone Pre Anesthesia [address] [place] [address] Jessica Boone, ROLL DOUGH DIVIDER.TALLOW MAKER Missed Kwlloedzowx45/03/5876Vjbqwh37/02/2025Telephone Gynecology [address] [place] [address] Julita Soliz, RN Pre-Op Mrhjiymz40/13/2025Telephone Obstetrics/Gynecology [address] [address] Milly Antonio MD Schedule Arvxdis8503/10/2025 11:00 AM ESTVisit (SP) Office Gynecology Oncology [address] [place] [address] [place] [address] Milly Antonio MD Condyloma acuminatum (Primary Dx); Low grade squamous intraepithelial lesion on cytologic smear of vagina (LGSIL); HPV in female; Pre-op testing; Other urinary tgzozvqyyeab70/12/0660Nlvalt58/Telephone [facility] [address] [place] [address] Milly Antonio MD 02/10/2025Lab Requisition [facility] [address] [place] [address] Milly Antonio MD Person encountering health services to consult on behalf of another person 02/04/2025Telephone [facility] [address] [place] [address] Milly Antonio MD from Last 3 Months Family History Medical HistoryRelationCommentsCancerFatherHeart diseaseFatherStrokeFatherHeart diseaseMotherHypertensionMotherStrokeMotherDiabetesSisterRelationStatusComments FatherDeceasedMaternal GrandfatherDeceasedMaternal GrandmotherDeceasedMother DeceasedPaternal GrandfatherDeceasedPaternal GrandmotherDeceasedSister Social History Tobacco UseTypesPacks/DayYears UsedDateSmoking Tobacco: Every JamYvinnnjwsw213 Started: 1974Smokeless Tobacco: Never Tobacco Cessation:Ready to Q uit: Not Asked; Counseling Given: Not Answered Alcohol UseStandard Drinks/WeekCommentsNot Currently0 (1 standard drink = 0.6 oz pure alcohol)Area Deprivation IndexAnswerDate RecordedNational Score (1-100), lower number is lower snuh146403/10/2025State Score (1-10), lower number is lower yrim24105/10/2024Data from: https://www.neighborhoodatlas.medicine.[facility].edu/. Last address used for mrmxvidsjtk494 [facility]03/10/2025CommentsNoSex and Gender InformationValueDate RecordedSex Assigned at BirthNot on fileLegal Sex Jzvylj3503/30/2012 10:19 AM ESTGender IdentityNot on fileSexual OrientationNot on file Last Filed Vital Signs Vital SignReadingTime TakenCommentsBlood Mdqhkwmc67/5804/09/2025 12:22 PM EST Kwkdb970404/09/2025 12:22 PM DHJRbowndfmxki26.7 ??C (98.1 ??F)04/09/2025 12:22 PM ESTRespiratory Nnle498806/10/2024 12:22 PM ESTOxygen Ztchcqkbqi32%04/09/2025 12:22 PM ESTInhaled Oxygen Concentration--Kytvkg45 kg (189 lb 9.5 oz)04/09/2025 12:22 PM EJIMgagpt922.2 cm (5' 7 )04/09/2025 12:22 PM ESTBody Mass Index29.69 04/09/2025 12:22 PM EST Plan of Treatment DateTypeDepartmentCare Team (Latest Contact Info)Bfdrfybuwyp94/14/2026 11:45 AM ESTVisit (SP) Office Gynecology Oncology [address] [place] [address] [place] [address] Milly Antonio MD [address] [place] [address] post opHealth MaintenanceDue DateLast DoneCommentsDiabetic Foot Exam11/26/1967 Dilated Retinal Exam11/26/1967Urine Albumin:Creatinine Ratio11/26/1967Annual PCP Team Chronic Disease Visit11/26/1975Hepatitis C Bpdllqakd55/30/1976LDL Dnvufvpnarl57/30/1976DTaP,Tdap,Td Vaccine (1 - Tdap)1976Pneumococcal Vaccine: 50+ (1 of 2 - PCV)1976CT Hcpqyrnkjyog73/30/2003Cologuard (FIT-DNA)11/25/20021412Imyjeafccxf73/30/2003Colorectal Cancer Zrgqvuomj52/30/2003 Fecal Occult Blood11/25/20023077Ysdekjxykjyjm90/30/2003Lung Cancer Screening 11/26/2007RSV Vaccine (1 - Risk 50-74 years 1-dose series)11/26/2007Shingrix Vaccine (1 of 2)11/26/2007Mammogram Upwpcofis89/03/2021, 05/11/2019, 05/11/2019, Additional history existsBone Density Jcrqpygvj05 Advance Directive Utdxxuuzjv24/01/2025Medicare Advantage Annual Wellness Visit 5Covid-19 Vaccine ( - 2025-26 season)2024Influenza Vaccine (#1) 12/28/20242170NkL2G35/6106/10/2024, 10/30/2023 Procedures Procedure NamePriorityDate/TimeAssociated DiagnosisCommentsXR CHEST 2V FRONTAL/KXITvmkpth45/12/2025 1:35 PM EST HPV in female Pre-op testing HEMOGLOBIN X8FQfvfehi64/12/2025 1:32 PM EST Pre-op evaluation ECG VTTYWETE27/12/2025 12:46 PM EST TYPE + SCREEN,30 TDRHnwunpn56/12/2025 12:12 PM EST Pre-op testing COMPLETE BLOOD CDUJYWywtrig18/12/2025 12:12 PM EST Pre-op testing COMPREHENSIVE METABOLIC VGXJOJknzogx94/12/2025 12:12 PM EST Pre-op testing EXTERNAL LAB02/12/2025 8:39 AM EDT EXTERNAL LAB02/12/2025 8:39 AM EDT EXTERNAL LAB02/12/2025 8:39 AM EDT OUTSIDE SURG PATH SLIDE DVJKIXUekoswj92/15/2025 10:21 PM EDT Person encountering health services to consult on behalf of another person PT ED OBSTETRICS & BPXUEGBAZD06/14/2025 EXTERNAL LAB02/04/2025 2:41 PM EDT from Last 3 Months Results * XR CHEST 2V FRONTAL/LAT (04/09/2025 1:35 PM EST)Anatomical RegionLaterality ModalityChestOtherSpecimen (Source)Anatomical Location / LateralityCollection Method / VolumeCollection TimeReceived Time04/09/2025 1:35 PM EST Impressions 04/12/2025 7:51 AM EST IMPRESSION: No acute cardiopulmonary process. Chief Radiation Therapist: DANK ?? Transcribe Date/Time: Apr 12 2025 [...] ??Pulmonary vasculature is unremarkable. Procedure Note Provider, [facility] [place] - 04/12/2025 * * *Final Report* * [...] isunremarkable. IMPRESSION IMPRESSION: No acute cardiopulmonary process. Chief Radiation Therapist: DANK Transcribe Date/Time: Apr 12 2025 7:43A Dictated by : VIRAL PENNY MD This examination was interpreted and the report reviewed and electronically signed by: VIRAL PENNY MD on Apr 12 2025 7:49AM EST Authorizing ProviderResult TypeResult StatusSuzanne Surovec ROLL DOUGH DIVIDER.CNPRAD-PAMA Final Result * (ABNORMAL) HEMOGLOBIN A1C (04/09/2025 1:32 PM EST)ComponentValueRef RangeTest MethodAnalysis TimePerformed AtPathologist SignatureHemoglobin A1C8.4(H)4.3 - 5.6 %04/11/2025 8:54 AM [facility] MAIN LABComment:[place] Diabetes Association guidelines indicate that patients with HgbA1c in the range 5.7- 6.4% are at increased risk for development of diabetes, and intervention by lifestyle modification may be beneficial. HgbA1c greater or equal to 6.5% is considered diagnostic of diabetes.Estimated Average Zbhtbtn489qy/dL04/11/2025 8:54 AM [facility] MAIN LABComment:eAG: (Estimated average glucose) is a calculated value from HgbA1c and is denial management representative of the average blood glucose level in the last 2-3 month period.Specimen (Source)Anatomical Location / LateralityCollection Method / VolumeCollection TimeReceived Time BloodBLOOD SPECIMEN / UnknownVenipuncture / Xpijuah7204/09/2025 1:32 PM EST 04/09/2025 1:33 PM EST Narrative Authorizing ProviderResult TypeResult StatusKaitmely Smart ROLL DOUGH DIVIDER.CNPLABORATORY Final ResultPerforming OrganizationAddressCity/State/ZIP CodePhone Number [facility] [address] * ECG COMPLETE (04/09/2025 12:46 PM EST)ComponentValueRef RangeTest Method Analysis TimePerformed AtPathologist SignatureVentricular Rpvx18DHWSDNKM AND VASCULAR INSTITUTEAtrial Rdqs42KJMNZPJQ AND VASCULAR INSTITUTEP-R Vcnmyedu830 msHEART AND VASCULAR INSTITUTEQRS Mcqbrsyt17dyKSVGN AND VASCULAR INSTITUTEQT Friohcnq063spDHCYA AND VASCULAR INSTITUTEQTC Calculation (Bazett)447msHEART AND VASCULAR INSTITUTECalculated P Oatt40shduvzgJMDKA AND VASCULAR INSTITUTE Calculated R Zwkx06thggjbfFUJEI AND VASCULAR INSTITUTECalculated T Axis33 degreesHEART AND VASCULAR INSTITUTESpecimen (Source)Anatomical Location / LateralityCollection Method / VolumeCollection TimeReceived Time04/09/2025 12:46 PM EST Impressions [facility] - 04/10/2025 8:41 AM EST NORMAL SINUS RHYTHM NORMAL ECG Confirmed by Julia PHILLIPS RAVISANKAR ([id number]) on 04/10/2025 8:41:00 AM Narrative [facility] - 04/10/2025 8:41 AM EST NAME : KERRY MARCOS PID : [id number] : 1955 Gender : Female Race : [...] Performing OrganizationAddressCity/State/ZIP CodePhone Number [facility] [place] [address] [place] [address] * TYPE AND SCREEN,30 DAY (03/10/2025 12:12 PM EST)ComponentValueRef RangeTest MethodAnalysis TimePerformed AtPathologist KtsjudyvsIUWU93/12/2025 5:[address] [facility] MA[facility] LABRh(D)Gyedwiwb99/12/2025 5:51 PM ESTST. [facility] MAIN LABAntibody NcstenQxydessy08/12/2025 5:51 PM ESTST[address] [facility] Specimen (Source)Anatomical Location / LateralityCollection Method / Volume Collection TimeReceived TimeBloodBLOOD SPECIMEN / UnknownVenipuncture / Pwcrjgc4503/10/2025 12:12 PM EST03/10/2025 12:12 PM EST Narrative Authorizing ProviderResult TypeResult StatusMichelnikolai Antonio MDOOD BANK Final ResultPerforming OrganizationAddressCity/State/ZIP CodePhone Number [facility] [address] [place] [address], * (ABNORMAL) COMPREHENSIVE METABOLIC PANEL (03/10/2025 12:12 PM EST)Component ValueRef RangeTest MethodAnalysis TimePerformed AtPathologist Signature Protein, Total7.56.3 - 8.0 g/dL03/10/2025 12:34 PM ESTLOG[facility] LABAlbumin4.23.9 - 4.9 g/dL03/10/2025 12:34 PM [facility] LABCalcium, Total10.4(H)8.5 - 10.2 mg/dL03/10/2025 12:34 PM [facility] LABBilirubin, Total0.40.2 - 1.3 mg/dL03/10/2025 12:34 PM [facility] LABAlkaline Xvhhdolarql27290 - 123 U/L105/10/2024 12:34 PM [facility] UNGPFF9413 - 35 U/L105/10/2024 12:34 PM [facility] TQAQOS275 - 38 U/L105/10/2024 12:34 PM [facility] YHHBmbjceu658(H)74 - 99 mg/dL03/10/2025 12:34 PM [facility] LABComment: The [place] Diabetes Association (ADA) provides guidance for cutoff [...] Standards of Medical Care in Diabetes 2016, [place] Diabetes Association. Diabetes Care. 2016.39(Suppl 1). BUN87 - 21 mg/dL03/10/2025 12:34 PM [facility] Creatinine0.890.58 - 0.96 mg/dL03/10/2025 12:34 PM [facility] QUMZodqad057489 - 144 mmol/L105/10/2024 12:34 PM [facility] LABPotassium5.03.7 - 5.1 mmol/L105/10/2024 12:34 PM ESTNORTTR[facility] VIZGkbuxmmo5994 - 107 mmol/L105/10/2024 12:34 PM EST [facility] BIPHJ436(H)22 - 30 mmol/L105/10/2024 12:34 PM ESTNORTTR[facility] LABAnion Gap98 - 15 mmol/L105/10/2024 12:34 PM ESTNORTTRINITY [facility] LABEstimated Glomerular Filtration Rate 71>=60 mL/min/1.73m 03/10/2025 12:34 PM ESTNORTTRINITY [facility] LABComment:Estimated Glomerular Filtration Rate (eGFR) is [...] VolumeCollection TimeReceived TimeBloodBLOOD SPECIMEN / UnknownVenipuncture / Egcjymx3903/10/2025 12:12 PM EST03/10/2025 12:12 PM EST Narrative Authorizing ProviderResult TypeResult StatusMichelnikolai Antonio MDLABORATORY Final ResultPerforming OrganizationAddressCity/State/ZIP CodePhone Number [facility] [address] [place] [address] * (ABNORMAL) COMPLETE BLOOD COUNT (03/10/2025 12:12 PM EST)ComponentValueRef RangeTest MethodAnalysis TimePerformed AtPathologist SignatureWBC9.123.70 - 11.00 k/uL03/10/2025 12:14 PM ESTNORTTRINITY [facility] LABRBC5.37 (H)3.90 - 5.20 m/uL03/10/2025 12:14 PM [facility]ORTTR[facility] LSMYrqhzefief01.8(H)11.5 - 15.5 g/dL03/10/2025 12:14 PM [facility] QMEWuzzrfpnor54.2(H)36.0 - 46.0 %03/10/2025 12:14 PM EST [facility] PJBJLZ92.380.0 - 100.0 fL03/10/2025 12:14 PM [facility] ELVWGN84.326.0 - 34.0 pg03/10/2025 12:14 PM [facility] MFCJPRP47.830.5 - 36.0 g/dL03/10/2025 12:14 PM [facility] LABRDW-CV13.511.5 - 15.0 % 03/10/2025 12:14 PM [facility] LABPlatelet Edmvl172 150 - 400 k/uL03/10/2025 12:14 PM [facility] LABMPV 11.79.0 - 12.7 fL03/10/2025 12:14 PM [facility] LAB Absolute nRBC<0.01<0.01 k/uL03/10/2025 12:14 PM [facility] LABSpecimen (Source)Anatomical Location / LateralityCollection Method / VolumeCollection TimeReceived TimeBloodBLOOD SPECIMEN / UnknownVenipuncture / Azeamhw8303/10/2025 12:12 PM EST03/10/2025 12:12 PM EST Narrative Authorizing ProviderResult TypeResult StatusMichelnikolai Antonio MDLABORATORY Final ResultPerforming OrganizationAddressCity/State/ZIP CodePhone Number [facility] [address] [place] [address] * EXTERNAL LAB (02/12/2025 8:39 AM EDT) Only the most recent of4 resultswithin the time period is included. Narrative Authorizing ProviderResult TypeResult StatusExternal Provider PA-CLABORATORY Final Result * OUTSIDE SURG PATH SLIDE REVIEW (02/10/2025 10:21 PM EDT)ComponentValueRef RangeTest MethodAnalysis TimePerformed AtPathologist SignatureCase Report Surgical Pathology Report ? Case: [id number] ? Authorizing Provider: ??Milly Antonio MD Collected: ? 02/10/2025 10:21 PM ? Ordering Location: ? [facility] ?Received: ?02/10/2025 10:19 PM ? [facility] ? Pathologist: ? Stacy Hassan MD ? Specimen: ?Slide(s), 2 SLIDES ([id number]) ? 02/11/2025 3:16 PM EDTCO[facility] MAIN LABFINAL DIAGNOSISReview of outside slides Vulva, biopsy: Consistent with condyloma.02/11/2025 3:16 PM EDTCO[facility] LAB at 1516 EDT Performing LabDiagnostic interpretation performed at: [facility], [address] [place] [address] CLIA# [id number] Mine Safety Director: Rudi Turner MD 02/11/2025 3:16 PM EDTCTUSCARAWAS [facility] LABDisclaimerLaboratory Developed Test (LDT) Disclaimer: Performance characteristics of immunohistochemical, immunofluorescent, and chromogenic in-situ hybridization tests have been determined by the performing laboratory within the [facility] Department of Pathology and Laboratory Medicine ([facility], [facility], [facility], [facility], [facility], or [facility]) in a manner consistent with CLIA requirements. One or more of these tests may not have been cleared or approved by the FDA. The [facility] Department of Pathology and Laboratory Medicineis regulated under CLIA as qualified to perform high-complexity testing. These tests are used for clinical purposes. These should not be regarded as investigational or for research. Positive and negative controls stain appropriately.02/11/2025 3:16 PM EDT [facility] LABSpecimen (Source)Anatomical Location / Laterality Collection Method / VolumeCollection TimeReceived TimeBlocks or SlidesMICROSCOPE SLIDE / Wsflpej0102/10/2025 10:21 PM EDT1 10:19 PM EDT Narrative Authorizing ProviderResult TypeResult StatusMicmonalisa Antonio MDSURGICAL PATHOLOGYFinal ResultPerforming OrganizationAddressCity/State/ZIP CodePhone Number [facility] [address] [place] [address], * PT ED OBSTETRICS & GYNECOLOGY (02/09/2025)Specimen (Source)Anatomical Location / LateralityCollection Method / VolumeCollection TimeReceived Time02/09/2025 Narrative DANNY - 03/12/2025 Provider PACO your patient KERRY PRITI has not started their Danny program, time has . Danny program: [facility] WHAT TO EXPECT AT YOUR APPOINTMENT Authorizing ProviderResult TypeResult StatusMicmonalisa Antonio MDEMMIFinal ResultPerforming OrganizationAddressCity/State/ZIP CodePhone Number DANNY from Last 3 Months Insurance Care Teams Team MemberRelationshipSpecialtyStart DateEnd Date Shantel Norton NP [address] [place] [address] PCP - GeneralFaorly Brskvcyn61/24/25
--- OUTSIDE RECORDS SUMMARY | 2025-04-26 14:14 | XMS_ITS | Patient Health Record ---
Author Organization [employer] Address [address] [place] [address] Care Team Providers Care Interactive Marketing Strategist Name Role Phone Dr. Edgar Garcia Primary Care Provider Reason For Referral No Information Plan Of Treatment No Information Insurance Providers Payer Name Payer Address Payer Phone Subscriber Number Group Number Insured Name Patient Relationship to Insured Coverage Start Date Coverage End Date MEDICARE CGS [address] [place] [phone] [id number] PRITI Rm - patient is the [id number] 2020MEDICAID [facility] [address] [place] [id number], CINDYSelf - patient is the [id number] 2020ENTAL MEDICAID [place] [address] [place] [address] [phone], CINDYSelf - patient is the [id number] 2020
--- OUTSIDE RECORDS SUMMARY | 2025-04-26 14:14 | XMS_ITS | Clinical Summary ---
Author Organization [facility] Address [address] [place] [address] Phone Care Team Providers Care Desktop Support Consultant Name Role Phone Shantel Norton APRN-LOKIE ENGINEER Primary Care Pro vider Allergies Active AllergyReactionsCriticalityNoted DateCommentsSulfa (Sulfonamide Antibiotics)GI intolerance,Unknown,Nausea/bvfeamzr92/30/2019 Medications MedicationSigDispense QuantityRefillsLast FilledStart DateEnd DateStatus semaglutide [...] Problems ProblemNoted DateDiagnosed DateObesity (BMI 30-39.9)12/16/2023Typical atrial ouxyoti5910/07/2023Nonischemic jxnkgutdhtzxud95/10/4160Dstbppwu39/21/2024 Overview (09/17/2023): Last Assessment & Plan: Assessment: on Actos, metformin and Humalog. States BG in Am 110-140, Last A1C- 6.5 Fwkxdmccfcdrfcanen60/21/2024 Overview (09/17/2023): Last Assessment & Plan: Assessment: on statin Nddbpbgjxozv06/21/2024 Overview (09/17/2023): Last Assessment & Plan: Assessment: controlled on Lisinopril Current uuljzo3209/17/2023 Overview (09/17/2023): Last Assessment & Plan: Assessment: Current 40 pack year Resolved Problems ProblemNoted DateDiagnosed DateResolved DateHigh risk medication use11/13/2023 5BMI 28.0-28.9,adult/ Encounters DateTypeDepartmentCare VzooPskgbyjzxrg31/13/2025Refill [facility] [place] [facility] [address] [place] [phone] Roland Faust MD Shortness of breath; Edema, unspecified type03/26/2025Telephone [facility] [place] [facility] [address] [place] [phone] Tabatha Patiño RN 02/11/2025Refill [facility] [address] [place] [phone] Roland Faust MD Hypertension, unspecified type; Nonischemic cardiomyopathy (Multi)from Last 3 Months Family History Medical HistoryRelationNameCommentscabgFatherHeart failureMotherheart stent MotherRelationNameStatusCommentsFatherMother Social History Tobacco UseTypesPacks/DayYears UsedDateSmoking Tobacco: Every DayCigarettes Smokeless Tobacco: Never Tobacco Cessation:Ready to Q uit: No; Counseling Given: Yes Alcohol UseStandard Drinks/WeekCommentsNever0 (1 standard drink = 0.6 oz pure alcohol)CommentsUnknownSex and Gender InformationValueDate RecordedSex Assigned at BirthNot on fileLegal PmvJzafff88/02/2023 3:01 AM EDTGender Identity Not on fileSexual OrientationNot on file Last Filed Vital Signs Vital SignReadingTime TakenCommentsBlood Qwshlxiw830/7009 1:47 PM EDT Ogajk1327/03/2025 1:47 PM EDTTemperature--Respiratory Rate--Oxygen Saturation-- Inhaled Oxygen Concentration--Hgfkpc72.4 kg (197 lb)12/30/2024 1:47 PM EDTHeight 170.2 cm (5' 7 )12/30/2024 1:47 PM EDTBody Mass Index30.85012/30/2024 1:47 PM EDT Plan of Treatment DateTypeDepartmentCare Team (Latest Contact Info)Phnyappbnlj12/21/2026 3:10 PM EDTOffice Visit at [facility] [address] [facility] [address] [place] [address] Roland Faust MD [address] [facility] [address] [place] [address] Health MaintenanceDue DateLast DoneCommentsCT Cipakebxrfpk89/30/1958Colonoscopy 1957Colorectal Cancer Kexkpuwqe61/30/1958Diabetes: Hemoglobin A1C 1957Diabetes: Urine Protein Ccuydafbk15/30/1958FIT-DNA (Cologuard) 1957FIT1957Lipid Panel1957Medicare Annual Wellness Visit (AWV) 1955 8893Sdcbvnxpsozii61/30/1958Diabetes: Retinopathy Uxemwaewj07/30/1968 Hepatitis C Itlcjvuug74/30/1976Pneumococcal Vaccine (1 of 2 - PCV)1976 DTaP/Tdap/Td Vaccines (1 - Tdap)11/26/1979RSV High Risk: (Elderly (60+) or Population) (1 - Risk 50-74 years 1-dose series)11/26/2007Zoster Vaccines (1 of 2)11/26/20075596Kgmygdjva18/12/202202/1Bone Density Scan 2022TSH Level/03/2024COVID-19 Vaccine (1 - 5-26 season) 2024Influenza Vaccine (#1)2024MMR PwdermdeMwrylwuid36/05/2002HIB VaccinesAged OutNo longer eligible based on patient's [...] Teams Team MemberRelationshipSpecialtyStart DateEnd Date Shantel Norton APRN-LOKIE ENGINEER [address] [place] [address] PCP - GeneralFamily Medicine12/30/24
--- OUTSIDE RECORDS SUMMARY | 2025-04-26 14:15 | XMS_ITS | Encounter Summary ---
Author Organization [facility] Address [address] [place] [id number] Care Team Providers Care Private Branch Exchange Service Advisor Name Role Phone Shantel Norton RESPONDER Primary Care Provider Source Comments In the event this information is protected by the Federal Confidentiality of Alcohol and Drug AbusePatient Records regulations: The Federal rules restrict any use of the information to criminally investigate or prosecute any alcohol or drug abuse patient.[facility] Encounter Details DateTypeDepartmentCare Team (Latest Contact Info)Zytabyrexrb40/15/2025Results Follow-Up Gynecology Oncology [address] [phone] Sarah Coto, GRAIN MIXER.TIP FIXER [address] [phone] Social History Tobacco UseTypesPacks/DayYears UsedDateSmoking Tobacco: Every SheMgpnlmbqmp488 Started: 1972Smokeless Tobacco: NeverAlcohol UseStandard Drinks/WeekCommentsNot Currently0 (1 standard drink = 0.6 oz pure alcohol)Area Deprivation IndexAnswer Date RecordedNational Score (1-100), lower number is lower jrtb924403/10/2025State Score (1-10), lower number is lower cjyj19205/10/2024Data from: https://www.neighborhoodatlas.medicine.[facility].edu/. Last address used for [address]/10/2025CommentsNoSex and Gender InformationValueDate RecordedSex Assigned at BirthNot on fileLegal SexFemale 03/30/2012 10:19 AM ESTGender IdentityNot on fileSexual OrientationNot on file documented as of this encounter Plan of Treatment DateTypeDepartmentCare Team (Latest Contact Info)Ittddkfabxq92/14/2026 11:45 AM ESTVisit (SP) Office Gynecology Oncology [address] [place] [address] [place] [address] Milly Cordoba MD [address] [place] [address] post opdocumented as of this encounter Visit Diagnoses Not on filedocumented in this encounter Care Teams Team MemberRelationshipSpecialtyStart DateEnd Date Shantel Norton NP [address] [place] [address] PCP - GeneralFamily Ocrwllep29/24/25documented as of this encounter
--- OUTSIDE RECORDS SUMMARY | 2025-04-26 14:15 | XMS_ITS | Encounter Summary ---
Author Organization [facility] Address [address] [place] [address] Phone Care Team Providers Care Construction Accountant Name Role Phone Kimberly Nortonfer Rebecca FREEDMAN Primary Care Pro vider Reason for Visit * ReasonCommentsMed Refill Encounter Details DateTypeDepartmentCare Team (Latest Contact Info)Iqgtprmwbha00/13/2025Refill at [facility] [address] [place] [phone] Roland Faust MD [address] [place] [address] [address], [address] [address] Shortness of breath; Edema, unspecified type Social History Tobacco UseTypesPacks/DayYears UsedDateSmoking Tobacco: Every DayCigarettes Smokeless Tobacco: NeverAlcohol UseStandard Drinks/WeekCommentsNever0 (1 standard drink = 0.6 oz pure alcohol)CommentsUnknownSex and Gender InformationValueDate RecordedSex Assigned at BirthNot on fileLegal SexFemale 11/28/2022 3:01 AM EDTGender IdentityNot on fileSexual OrientationNot on file documented as of this encounter Plan of Treatment DateTypeDepartmentCare Team (Latest Contact Info)Rvfhovqehbm91/21/2026 3:10 PM EDTOffice Visit [facility] [address] [place] [phone] Roland Faust MD [address] [place] [address] 2, [facility] [address] [place] [address] documented as of this encounter Visit Diagnoses Diagnosis Shortness of breath Edema, unspecified type documented in this encounter Additional Health Concerns AssessmentNoted TimeA fall risk assessment has been completed for the patient 06/26/2024 9:48 AM ESTdocumented as of this encounter Care Teams Team MemberRelationshipSpecialtyStart DateEnd Date Shantel Norton APRN-ONCOLOGY PHYSICIAN [address] [place] [address] PCP - GeneralFamily Medicine12/30/24documented as of this encounter
--- OUTSIDE RECORDS SUMMARY | 2025-04-26 14:15 | XMS_ITS | Encounter Summary ---
Author Organization [facility] Address [address] [place], [place] [id number] Care Team Providers Care Medical Records Administrator Name Role Phone Shantel Norton TICKER WIRER Primary Care Provider Source Comments In the event this information is protected by the Federal Confidentiality of Alcohol and Drug AbusePatient Records regulations: The Federal rules restrict any use of the information to criminally investigate or prosecute any alcohol or drug abuse patient.[facility] Reason for Visit * ReasonCommentsAnesthesia Consult Encounter Details DateTypeDepartmentCare Team (Latest Contact Info)Vabonahajjp68/15/2025Telephone Pre Anesthesia [address] [place] [address] Reyna Smart APRN.PAINT PREPARER [address] [place] [address] Anesthesia Consult Social History Tobacco UseTypesPacks/DayYears UsedDateSmoking Tobacco: Every IdmClajncdgpq835 Started: 1972Smokeless Tobacco: NeverAlcohol UseStandard Drinks/WeekCommentsNot Currently0 (1 standard drink = 0.6 oz pure alcohol)Area Deprivation IndexAnswer Date RecordedNational Score (1-100), lower number is lower ctrq636003/10/2025State Score (1-10), lower number is lower zjsm35705/10/2024Data from: https://www.neighborhoodatlas.medicine.[facility].edu/. Last address used for [address]/10/2025CommentsNoSex and Gender InformationValueDate RecordedSex Assigned [...] Plan of Treatment DateTypeDepartmentCare Team (Latest Contact Info)Cakwtkvvbxo93/14/2026 11:45 AM ESTVisit (SP) Office Gynecology Oncology [address] [place] [address] [place] [address] Milly Cordoba MD [address] [place] [address] post opdocumented as of this encounter Visit Diagnoses Not on filedocumented in this encounter Care Teams Team MemberRelationshipSpecialtyStart DateEnd Date Shantel Norton NP [address] [place] [address] PCP - GeneralFamily Dokwlvev82/24/25documented as of this encounter
== END 2025-04-26 14:10 | disposition home or self-care (01) ==
LOC: WC 14:09
PROVIDERS: Family Provider Family Medicine; PCP Nurse Practitioner Family; Visit Provider Podiatrist Foot & Ankle Surgery
DX: E11.621 Type 2 diabetes mellitus with foot ulcer (principal); L97.415 Non-pressure chronic ulcer of right heel and midfoot with muscle involvement without evidence of necrosis; L97.412 Non-pressure chronic ulcer of right heel and midfoot with fat layer exposed
CPT/HCPCS: 11043; A6199